=== PATIENT | male | born 1950 | race Caucasian/White ===

== ENCOUNTER 2022-07-24 19:17 | Inpatient (IN) | payer OTHER ==
--- OUTSIDE RECORDS SUMMARY | 2022-07-24 19:53 | XMS REPORT | Continuity of Care Document ---
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 ENCOUNTER Diagnosis Active 2015-09-21 Memoria FOR ENCOUNTER 08:30:00 l SCREENING FOR Rol[place] FOR SCREENING MALIGNANT FOR NE MALIGNANT NE Active [facility] LABS LABS Diagnosis Active 2015-09-28 Mem oria Active 07:49:00 l [facility] [place] Acute Acute Problem Resolve 2012-032019-01-18 2019-01-18 Memoria exacerbati exacerbati d 2-18 23:23:24 23:23:24 l on of on of 00:00: [place] 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 Annika Wise [facility], [facility] Allergies, Adverse Reactions, Alerts Allergy Allergy Status Severity Reaction(s) Onset Inactive Treating Comm ents Source Name Type Date Date Clinician NO KNOWN Drug Active Univers ALLERGIE Class ity of S [facility] [place] iodine iodine Active Memoria l [place] acetamin acetamin Active Memori a ophen-co ophen-co l deine deine [place] codeine< codeine< Active Memori a sup>1</s sup>1</s l up> up> [place] Social History Social Habit Start Date Stop Date Quantity Comments Source History [facility] University o f Alcohol Frequency [place] [facility] History [facility] University o f Alcohol Std [place] [facility] Drinks Branch History [facility] o f Alcohol Binge [place] [facility] History of Current smoker University of tobacco use [facility] [place] Exposure to 2022-04-06 2022-04-16 Not sure University of SARS-CoV-2 00:00:00 09:57:00 [place] [facility] (event) Branch History SDOH 2020-04-04 2020-04-04 0 University o f Physical Activity 00:00:00 00:00:00 [place] [facility] DPW Branch History SDOH 2020-04-04 2020-04-04 99 University o f Physical Activity 00:00:00 00:00:00 [place] [facility] MPS Branch History SDOH 2020-03-01 2020-03-01 5 University o f Financial 00:00:00 00:00:00 [place] [facility] History SDOH Food 2020-03-01 2020-03-01 1 Univers ity of Worry 00:00:00 00:00:00 [place] [facility] History SDOH Food 2020-03-01 2020-03-01 1 Univers ity of Scarcity 00:00:00 00:00:00 [place] [facility] History SDOH 2020-03-01 2020-03-01 2 University o f Transport Med 00:00:00 00:00:00 [place] [facility] al Branch History SDOH 2020-03-01 2020-03-01 2 University o f Transport Non-Med 00:00:00 00:00:00 [facility] edical Branch Alcohol intake 2019-03-05 2019-03-05 0 /d University of 00:00:00 00:00:00 [facility] [place] Tobacco use and 2016-02-04 2016-02-04 Smokeless tobacco Un iversity of exposure 00:00:00 00:00:00 non-user [facility] [place] Tobacco Comment 2016-02-04 2016-02-04 smoked 1 ppd age Uni versity of 00:00:00 00:00:00 [age], quit age [place] [facility] ical 64 Branch Alcohol Comment 2016-02-04 2016-02-04 occasional Universit y of 00:00:00 00:00:00 [facility] [place] Social History 2015-09-21 2015[facility]09[facility] 13[facility]53 13:55:53 [birth year] Universit y of 00:00:00 00:00:00 [facility] [place] Smoking Status Start Date Stop Date Source Ex-smoker 2016-02-04 00:00:00 2016-02-04 00:00:00 [facility] Medical Branch Medications Ordered Filled Start Stop Current Ordering Indication Dosage Frequency Signature Comments Components Source Medication Medication Date Date Medication? Clinician (SIG) Name Name OPAL 10 2022-0 Yes [id number] TAKE ONE Univers mg tablet 4-19 TABLET BY ity o f 00:00: MOUTH [place] THREE Medical TIMES A Branch DAY NEEDED FOR PAIN ERGOCALCIFE 3-0 Yes [id number] TAKE 1 Univers ROL, 4-03 CAPSULE BY ity of VITAMIN D2, 00:00: MOUTH ONCE [place] 1,250 mcg 00 A WEEK Medical (50,000 Branch unit) capsule ERGOCALCIFE 3-0 Yes [id number] TAKE 1 Univers ROL, 4-03 CAPSULE BY ity of VITAMIN D2, 00:00: MOUTH ONCE [place] 1,250 mcg 00 A WEEK Medical (50,000 Branch unit) capsule predniSONE 2022-0 Yes [id number] 5mg Take 1 Univers 5 mg tablet 2-09 tablet by ity of 00:00: mouth in [place] 00 the Medical morning. Branch predniSONE 3-0 Yes [id number] 5mg Take 1 Univers 5 mg tablet 2-09 tablet by ity of 00:00: mouth in [place] 00 the Medical morning. Branch predniSONE 3-0 Yes [id number] 5mg Take 1 Univers 5 mg tablet 2-09 tablet by ity of 00:00: mouth in [place] 00 the Medical morning. Branch predniSONE 3-0 Yes [id number] 5mg Take 1 Univers 5 mg tablet 2-09 tablet by ity of 00:00: mouth in [place] 00 the Medical morning. Branch predniSONE 3-0 Yes [id number] 5mg Take 1 Univers 5 mg tablet 2-09 tablet by ity of 00:00: mouth in [place] 00 the Medical morning. Branch predniSONE 3-0 Yes [id number] 5mg Take 1 Univers 5 mg tablet 2-09 tablet by ity of 00:00: mouth in [place] 00 the Medical morning. Branch predniSONE 2023-0 Yes [id number] 5mg Take 1 Univers 5 mg tablet 2-09 tablet by ity of 00:00: mouth in [place] 00 the Medical morning. Branch predniSONE 2023-0 Yes [id number] 5mg Take 1 Univers 5 mg tablet 2-09 tablet by ity of 00:00: mouth in [place] 00 the Medical morning. Branch predniSONE 3-0 Yes [id number] 5mg Take 1 Univers 5 mg tablet 2-09 tablet by ity of 00:00: mouth in [place] 00 the Medical morning. Branch predniSONE 3-0 Yes [id number] 5mg Take 1 Univers 5 mg tablet 2-09 tablet by ity of 00:00: mouth in [place] 00 the Medical morning. Branch predniSONE 3-0 Yes [id number] 5mg Take 1 Univers 5 mg tablet 2-09 tablet by ity of 00:00: mouth in [place] 00 the Medical morning. Branch predniSONE 2023-0 Yes [id number] 5mg Take 1 Univers 5 mg tablet 2-09 tablet by ity of 00:00: mouth in [place] 00 the Medical morning. Branch predniSONE 2023-0 Yes [id number] 5mg Take 1 Univers 5 mg tablet 2-09 tablet by ity of 00:00: mouth in [place] 00 the Medical morning. Branch benzonatate 3-0 Yes [id number] 100mg Take 1 Univers (TESSALON 1-09 capsule by ity of PERLES) 100 00:00: mouth [place] mg capsule 00 every 8 Medica l (eight) Branch hours as needed for Cough. benzonatate 3-0 Yes [id number] 100mg Take 1 Univers (TESSALON 1-09 capsule by ity of PERLES) 100 00:00: mouth [place] mg capsule 00 every 8 Medica l (eight) Branch hours as needed for Cough. benzonatate 3-0 Yes [id number] 100mg Take 1 Univers (TESSALON 1-09 capsule by ity of PERLES) 100 00:00: mouth [place] mg capsule 00 every 8 Medica l (eight) Branch hours as needed for Cough. benzonatate 3-0 Yes [id number] 100mg Take 1 Univers (TESSALON 1-09 capsule by ity of PERLES) 100 00:00: mouth [place] mg capsule 00 every 8 Medica l (eight) Branch hours as needed for Cough. benzonatate 2023-0 Yes [id number] 100mg Take 1 Univers (TESSALON 1-09 capsule by ity of PERLES) 100 00:00: mouth [place] mg capsule 00 every 8 Medica l (eight) Branch hours as needed for Cough. benzonatate 3-0 Yes [id number] 100mg Take 1 Univers (TESSALON 1-09 capsule by ity of PERLES) 100 00:00: mouth [place] mg capsule 00 every 8 Medica l (eight) Branch hours as needed for Cough. benzonatate 2022-0 Yes [id number] 100mg Take 1 Univers (TESSALON 1-09 capsule by ity of PERLES) 100 00:00: mouth [place] mg capsule 00 every 8 Medica l (eight) Branch hours as needed for Cough. benzonatate 2022-0 Yes [id number] 100mg Take 1 Univers (TESSALON 1-09 capsule by ity of PERLES) 100 00:00: mouth [place] mg capsule 00 every 8 Medica l (eight) Branch hours as needed for Cough. benzonatate 2022-0 Yes [id number] 100mg Take 1 Univers (TESSALON 1-09 capsule by ity of PERLES) 100 00:00: mouth [place] mg capsule 00 every 8 Medica l (eight) Branch hours as needed for Cough. benzonatate 2022-0 Yes [id number] 100mg Take 1 Univers (TESSALON 1-09 capsule by ity of PERLES) 100 00:00: mouth [place] mg capsule 00 every 8 Medica l (eight) Branch hours as needed for Cough. benzonatate 2022-0 Yes [id number] 100mg Take 1 Univers (TESSALON 1-09 capsule by ity of PERLES) 100 00:00: mouth [place] mg capsule 00 every 8 Medica l (eight) Branch hours as needed for Cough. benzonatate 2022-0 Yes [id number] 100mg Take 1 Univers (TESSALON 1-09 capsule by ity of PERLES) 100 00:00: mouth [place] mg capsule 00 every 8 Medica l (eight) Branch hours as needed for Cough. benzonatate 2022-0 Yes [id number] 100mg Take 1 Univers (TESSALON 1-09 capsule by ity of PERLES) 100 00:00: mouth [place] mg capsule 00 every 8 Medica l (eight) Branch hours as needed for Cough. benzonatate 2022-0 Yes [id number] 100mg Take 1 Univers (TESSALON 1-09 capsule by ity of PERLES) 100 00:00: mouth [place] mg capsule 00 every 8 Medica l (eight) Branch hours as needed for Cough. benzonatate 2022-0 Yes [id number] 100mg Take 1 Univers (TESSALON 1-09 capsule by ity of PERLES) 100 00:00: mouth [place] mg capsule 00 every 8 Medica l (eight) Branch hours as needed for Cough. benzonatate 2022-0 Yes [id number] 100mg Take 1 Univers (TESSALON 1-09 capsule by ity of PERLES) 100 00:00: mouth [place] mg capsule 00 every 8 Medica l (eight) Branch hours as needed for Cough. benzonatate 2022-0 Yes [id number] 100mg Take 1 Univers (TESSALON 1-09 capsule by ity of PERLES) 100 00:00: mouth [place] mg capsule 00 every 8 Medica l (eight) Branch hours as needed for Cough. benzonatate 2022-0 Yes [id number] 100mg Take 1 Univers (TESSALON 1-09 capsule by ity of PERLES) 100 00:00: mouth [place] mg capsule 00 every 8 Medica l (eight) Branch hours as needed for Cough. benzonatate 2022-0 Yes [id number] 100mg Take 1 Univers (TESSALON 1-09 capsule by ity of PERLES) 100 00:00: mouth [place] mg capsule 00 every 8 Medica l (eight) Branch hours as needed for Cough. benzonatate 2022-0 Yes [id number] 100mg Take 1 Univers (TESSALON 1-09 capsule by ity of PERLES) 100 00:00: mouth [place] mg capsule 00 every 8 Medica l (eight) Branch hours as needed for Cough. benzonatate 2022-0 Yes [id number] 100mg Take 1 Univers (TESSALON 1-09 capsule by ity of PERLES) 100 00:00: mouth [place] mg capsule 00 every 8 Medica l (eight) Branch hours as needed for Cough. benzonatate 2022-0 Yes [id number] 100mg Take 1 Univers (TESSALON 1-09 capsule by ity of PERLES) 100 00:00: mouth [place] mg capsule 00 every 8 Medica l (eight) Branch hours as needed for Cough. benzonatate 2022-0 Yes [id number] 100mg Take 1 Univers (TESSALON 1-09 capsule by ity of PERLES) 100 00:00: mouth [place] mg capsule 00 every 8 Medica l (eight) Branch hours as needed for Cough. benzonatate 2022-0 Yes [id number] 100mg Take 1 Univers (TESSALON 1-09 capsule by ity of PERLDress Code) 100 00:00: mouth [place] mg capsule 00 every 8 Medica l (eight) Branch hours as needed for Cough. benzonatate Yes [id number] 100mg Take 1 Univers (TESSALON 1-09 capsule by ity of PERLDress Code) 100 00:00: mouth [place] mg capsule 00 every 8 Medica l (eight) Branch hours as needed for Cough. benzonatate Yes [id number] 100mg Take 1 Univers (TESSALON 1-09 capsule by ity of PERLDress Code) 100 00:00: mouth [place] mg capsule 00 every 8 Medica l (eight) Branch hours as needed for Cough. cloNIDine 2022- No [id number] .2mg Un renetta (CATAPRES) 03-08 ity of tablet 0.2 22:00: 21:21 [place] mg 00 :00 Medical Branch cloNIDine 2022- No [id number] .2mg 0.2 mg, Univers (CATAPRES) 03-08 Oral, ity of tablet 0.2 22:00: 21:21 ONCE, 1 [place] as mg 00 :00 dose, On Medical [facility] 03/08/22 Branch at 1600, Routine cloNIDine 2022- No [id number] .2mg Un renetta (CATAPRES) 03-08 ity of tablet 0.2 22:00: 21:21 [place] mg 00 :00 Medical Branch cloNIDine 2022- No [id number] .2mg 0.2 mg, Univers (CATAPRES) 03-08 Oral, ity of tablet 0.2 22:00: 21:21 ONCE, 1 [place] as mg 00 :00 dose, On Medical [facility] 03/08/22 Branch at 1600, Routine bumetanide 2022- No 1mg Take 1 mg U nivers 1 mg tablet 03-08 by mouth ity of 15:30: 00:00 in the [place] 31 :00 morning. Medical Indication Branch s: reports kidney Dr Rx, ~2 mths ago bumetanide 2022- No 1mg Take 1 mg U nivers 1 mg tablet 03-08 by mouth ity of 15:30: 00:00 in the [place] 31 :00 morning. Medical Indication Branch s: reports kidney Dr Rx, ~2 mths ago bumetanide 2022-2022- No 1mg Take 1 mg U nivers 1 mg tablet 03-08 by mouth ity of 15:30: 00:00 in the [place] 31 :00 morning. Medical Indication Branch s: reports kidney Dr Rx, ~2 mths ago bumetanide 2022-2022- No 1mg Take 1 mg U nivers 1 mg tablet 03-08 by mouth ity of 15:30: 00:00 in the [place] 31 :00 morning. Medical Indication Branch s: reports kidney Dr Rx, ~2 mths ago levothyroxi Yes [id number] 150ug Take 1 Univers ne 150 mcg 1-05 tablet by ity of tablet 00:00: mouth [place] 00 every Medical morning. Branch tamsulosin Yes [id number] .4mg Take 1 Univers 0.4 mg 24 03-08 9102 capsule by ity of hr capsule 00:00: mouth in [place] as 00 the Medical morning. Branch budesonide Yes [id number] .5mg Inhale 2 Univers 0.5 mg/2 mL 1-05 mL in the ity of nebulizer 00:00: morning [place] solution 00 and 2 mL Medical in the Branch evening. traZODone Yes [id number] 50mg Take 1 U nivers 50 mg 1-05 tablet by ity of tablet 00:00: mouth at [place] 00 bedtime. Medical Branch doxepin 25 Yes [id number] 25mg Take 1 Univers mg capsule 1-05 capsule by ity of 00:00: mouth at [place] 00 bedtime. Medical Branch glipiZIDE Yes [id number] 2.5mg Take 1 U nivers XL 2.5 mg 1-05 tablet by ity o f 24 hr 00:00: mouth in [place] tablet 00 the Medical morning Branch and 1 tablet in the evening. bumetanide Yes 1mg Take 1 Unive rs 1 mg tablet 1-05 tablet by ity of 00:00: mouth [place] 00 every Medical morning Branch and evening. Indication s: reports kidney Dr Rx, ~2 mths ago arformotero Yes [id number] 15ug Use 2 mL Univers L 15 mcg/2 1-05 as ity of mL 00:00: directed [place] nebulizer 00 in the Medical solution morning Branch and 2 mL in the evening. ipratropium Yes [id number] .5mg Inhale 2.5 Univers 0.02 % 1-05 mL every 4 ity of nebulizer 00:00: (four) [place] solution 00 hours as Medical needed for Branch Wheezing or Shortness of Breath. albuterol Yes [id number] 2{puff} Inhale 2 Univers 90 1-05 Puffs ity of mcg/actuati 00:00: every 6 [place] as on inhaler 00 (six) Medical hours as Branch needed for Wheezing or Shortness of Breath. albuterol Yes [id number] 2.5mg Inhale 3 Univers 2.5 mg /3 1-05 mL every 2 ity of mL (0.083 00:00: (two) [place] ) 00 hours as Medical nebulizer needed for Bran ch solution Shortness of Breath or Wheezing. cloNIDine Yes [id number] .2mg Take 1 U nivers 0.2 mg 1-05 tablet by ity of tablet 00:00: mouth 3 [place] 00 (three) Medical times Branch daily as needed (Uncontrol led Hypertensi on). Take 1 Tab if BP > 150/90 NIFEdipine Yes [id number] 30mg Take 1 U nivers ER 30 mg 1-05 tablet by ity of tablet 00:00: mouth in [place] 00 the Medical morning. Branch levothyroxi Yes [id number] 150ug Take 1 Univers ne 150 mcg 1-05 tablet by ity of tablet 00:00: mouth [place] 00 every Medical morning. Branch tamsulosin Yes [id number] .4mg Take 1 Univers 0.4 mg 24 1-05 9102 capsule by ity of hr capsule 00:00: mouth in [place] as 00 the Medical morning. Branch budesonide Yes [id number] .5mg Inhale 2 Univers 0.5 mg/2 mL 1-05 mL in the ity of nebulizer 00:00: morning [place] solution 00 and 2 mL Medical in the Branch evening. traZODone Yes [id number] 50mg Take 1 U nivers 50 mg 1-05 tablet by ity of tablet 00:00: mouth at [place] 00 bedtime. Medical Branch doxepin 25 Yes [id number] 25mg Take 1 Univers mg capsule 1-05 capsule by ity of 00:00: mouth at [place] 00 bedtime. Medical Branch glipiZIDE Yes [id number] 2.5mg Take 1 U nivers XL 2.5 mg 1-05 tablet by ity o f 24 hr 00:00: mouth in [place] tablet 00 the Medical morning Branch and 1 tablet in the evening. bumetanide Yes 1mg Take 1 Unive rs 1 mg tablet 1-05 tablet by ity of 00:00: mouth [place] 00 every Medical morning Branch and evening. Indication s: reports kidney Dr Rx, ~2 mths ago arformotero Yes [id number] 15ug Use 2 mL Univers L 15 mcg/2 1-05 as ity of mL 00:00: directed [place] nebulizer 00 in the Medical solution morning Branch and 2 mL in the evening. ipratropium Yes [id number] .5mg Inhale 2.5 Univers 0.02 % 1-05 mL every 4 ity of nebulizer 00:00: (four) [place] solution 00 hours as Medical needed for Branch Wheezing or Shortness of Breath. albuterol Yes [id number] 2{puff} Inhale 2 Univers 90 1-05 Puffs ity of mcg/actuati 00:00: every 6 [place] as on inhaler 00 (six) Medical hours as Branch needed for Wheezing or Shortness of Breath. albuterol Yes [id number] 2.5mg Inhale 3 Univers 2.5 mg /3 1-05 mL every 2 ity of mL (0.083 00:00: (two) [place] %) 00 hours as Medical nebulizer needed for Bran ch solution Shortness of Breath or Wheezing. cloNIDine Yes [id number] .2mg Take 1 U nivers 0.2 mg 1-05 tablet by ity of tablet 00:00: mouth 3 [place] 00 (three) Medical times Branch daily as needed (Uncontrol led Hypertensi on). Take 1 Tab if BP > 150/90 NIFEdipine 2022-0 Yes [id number] 30mg Take 1 U nivers ER 30 mg 1-05 tablet by ity of tablet 00:00: mouth in [place] 00 the Medical morning. Branch levothyroxi 2022-0 Yes [id number] 150ug Take 1 Univers ne 150 mcg 1-05 tablet by ity of tablet 00:00: mouth [place] 00 every Medical morning. Branch tamsulosin 2022-0 Yes [id number] .4mg Take 1 Univers 0.4 mg 24 1-05 9102 capsule by ity of hr capsule 00:00: mouth in [place] as 00 the Medical morning. Branch budesonide 2022-0 Yes [id number] .5mg Inhale 2 Univers 0.5 mg/2 mL 1-05 mL in the ity of nebulizer 00:00: morning [place] solution 00 and 2 mL Medical in the Branch evening. traZODone 2022-0 Yes [id number] 50mg Take 1 U nivers 50 mg 1-05 tablet by ity of tablet 00:00: mouth at [place] 00 bedtime. Medical Branch doxepin 25 2022-0 Yes [id number] 25mg Take 1 Univers mg capsule 1-05 capsule by ity of 00:00: mouth at [place] 00 bedtime. Medical Branch glipiZIDE 2022-0 Yes [id number] 2.5mg Take 1 U nivers XL 2.5 mg 1-05 tablet by ity o f 24 hr 00:00: mouth in [place] tablet 00 the Medical morning Branch and 1 tablet in the evening. bumetanide 0 Yes 1mg Take 1 Unive rs 1 mg tablet 1-05 tablet by ity of 00:00: mouth [place] 00 every Medical morning Branch and evening. Indication s: reports kidney Dr Rx, ~2 mths ago arformotero 2022-0 Yes [id number] 15ug Use 2 mL Univers L 15 mcg/2 1-05 as ity of mL 00:00: directed [place] nebulizer 00 in the Medical solution morning Branch and 2 mL in the evening. ipratropium 2022-0 Yes [id number] .5mg Inhale 2.5 Univers 0.02 % 1-05 mL every 4 ity of nebulizer 00:00: (four) [place] solution 00 hours as Medical needed for Branch Wheezing or Shortness of Breath. albuterol Yes [id number] 2{puff} Inhale 2 Univers 90 1-05 Puffs ity of mcg/actuati 00:00: every 6 [place] as on inhaler 00 (six) Medical hours as Branch needed for Wheezing or Shortness of Breath. albuterol 0 Yes [id number] 2.5mg Inhale 3 Univers 2.5 mg /3 1-05 mL every 2 ity of mL (0.083 00:00: (two) [place] %) 00 hours as Medical nebulizer needed for Bran ch solution Shortness of Breath or Wheezing. cloNIDine Yes [id number] .2mg Take 1 U nivers 0.2 mg 1-05 tablet by ity of tablet 00:00: mouth 3 [place] 00 (three) Medical times Branch daily as needed (Uncontrol led Hypertensi on). Take 1 Tab if BP > 150/90 NIFEdipine 2022-0 Yes [id number] 30mg Take 1 U nivers ER 30 mg 1-05 tablet by ity of tablet 00:00: mouth in [place] 00 the Medical morning. Branch levothyroxi Yes [id number] 150ug Take 1 Univers ne 150 mcg 1-05 tablet by ity of tablet 00:00: mouth [place] 00 every Medical morning. Branch tamsulosin Yes [id number] .4mg Take 1 Univers 0.4 mg 24 1-05 9102 capsule by ity of hr capsule 00:00: mouth in [place] as 00 the Medical morning. Branch budesonide Yes [id number] .5mg Inhale 2 Univers 0.5 mg/2 mL 1-05 mL in the ity of nebulizer 00:00: morning [place] solution 00 and 2 mL Medical in the Branch evening. traZODone 0 Yes [id number] 50mg Take 1 U nivers 50 mg 1-05 tablet by ity of tablet 00:00: mouth at [place] 00 bedtime. Medical Branch doxepin 25 0 Yes [id number] 25mg Take 1 Univers mg capsule 1-05 capsule by ity of 00:00: mouth at [place] 00 bedtime. Medical Branch glipiZIDE 0 Yes [id number] 2.5mg Take 1 U nivers XL 2.5 mg 1-05 tablet by ity o f 24 hr 00:00: mouth in [place] tablet 00 the Medical morning Branch and 1 tablet in the evening. bumetanide Yes 1mg Take 1 Unive rs 1 mg tablet 1-05 tablet by ity of 00:00: mouth [place] 00 every Medical morning Branch and evening. Indication s: reports kidney Dr Rx, ~2 mths ago arformotero 2022- Yes [id number] 15ug Use 2 mL Univers L 15 mcg/2 1-05 as ity of mL 00:00: directed [place] nebulizer 00 in the Medical solution morning Branch and 2 mL in the evening. ipratropium Yes [id number] .5mg Inhale 2.5 Univers 0.02 % 1-05 mL every 4 ity of nebulizer 00:00: (four) [place] solution 00 hours as Medical needed for Branch Wheezing or Shortness of Breath. albuterol Yes [id number] 2{puff} Inhale 2 Univers 90 1-05 Puffs ity of mcg/actuati 00:00: every 6 [place] as on inhaler 00 (six) Medical hours as Branch needed for Wheezing or Shortness of Breath. albuterol Yes [id number] 2.5mg Inhale 3 Univers 2.5 mg /3 1-05 mL every 2 ity of mL (0.083 00:00: (two) [place] %) 00 hours as Medical nebulizer needed for Bran ch solution Shortness of Breath or Wheezing. cloNIDine Yes [id number] .2mg Take 1 U nivers 0.2 mg 1-05 tablet by ity of tablet 00:00: mouth 3 [place] 00 (three) Medical times Branch daily as needed (Uncontrol led Hypertensi on). Take 1 Tab if BP > 150/90 NIFEdipine 2022-0 Yes [id number] 30mg Take 1 U nivers ER 30 mg 1-05 tablet by ity of tablet 00:00: mouth in [place] 00 the Medical morning. Branch levothyroxi 2022-0 Yes [id number] 150ug Take 1 Univers ne 150 mcg 1-05 tablet by ity of tablet 00:00: mouth [place] 00 every Medical morning. Branch tamsulosin 0 Yes [id number] .4mg Take 1 Univers 0.4 mg 24 1-05 9102 capsule by ity of hr capsule 00:00: mouth in [place] as 00 the Medical morning. Branch budesonide 0 Yes [id number] .5mg Inhale 2 Univers 0.5 mg/2 mL 1-05 mL in the ity of nebulizer 00:00: morning [place] solution 00 and 2 mL Medical in the Branch evening. traZODone 2022-0 Yes [id number] 50mg Take 1 U nivers 50 mg 1-05 tablet by ity of tablet 00:00: mouth at [place] 00 bedtime. Medical Branch doxepin 25 2022-0 Yes [id number] 25mg Take 1 Univers mg capsule 1-05 capsule by ity of 00:00: mouth at [place] 00 bedtime. Medical Branch glipiZIDE 0 Yes [id number] 2.5mg Take 1 U nivers XL 2.5 mg 1-05 tablet by ity o f 24 hr 00:00: mouth in [place] tablet 00 the Medical morning Branch and 1 tablet in the evening. bumetanide Yes 1mg Take 1 Unive rs 1 mg tablet 1-05 tablet by ity of 00:00: mouth [place] 00 every Medical morning Branch and evening. Indication s: reports kidney Dr Rx, ~2 mths ago arformotero 2022-0 Yes [id number] 15ug Use 2 mL Univers L 15 mcg/2 1-05 as ity of mL 00:00: directed [place] nebulizer 00 in the Medical solution morning Branch and 2 mL in the evening. ipratropium 0 Yes [id number] .5mg Inhale 2.5 Univers 0.02 % 1-05 mL every 4 ity of nebulizer 00:00: (four) [place] solution 00 hours as Medical needed for Branch Wheezing or Shortness of Breath. albuterol 2022-0 Yes [id number] 2{puff} Inhale 2 Univers 90 1-05 Puffs ity of mcg/actuati 00:00: every 6 [place] as on inhaler 00 (six) Medical hours as Branch needed for Wheezing or Shortness of Breath. albuterol 2022-0 Yes [id number] 2.5mg Inhale 3 [facility] 2.5 mg /3 1-05 mL every 2 ity of mL (0.083 00:00: (two) [place] %) 00 hours as Medical nebulizer needed for Bran ch solution Shortness of Breath or Wheezing. cloNIDine Yes [id number] .2mg Take 1 U nivers 0.2 mg 1-05 tablet by ity of tablet 00:00: mouth 3 [place] 00 (three) Medical times Branch daily as needed (Uncontrol led Hypertensi on). Take 1 Tab if BP > 150/90 NIFEdipine Yes [id number] 30mg Take 1 U nivers ER 30 mg 1-05 tablet by ity of tablet 00:00: mouth in [place] 00 the Medical morning. Branch levothyroxi Yes [id number] 150ug Take 1 [facility] ne 150 mcg 1-05 tablet by ity of tablet 00:00: mouth [place] 00 every Medical morning. Branch tamsulosin Yes [id number] .4mg Take 1 [facility] 0.4 mg 24 1-05 9102 capsule by ity of hr capsule 00:00: mouth in [place] as 00 the Medical morning. Branch budesonide Yes [id number] .5mg Inhale 2 [facility] 0.5 mg/2 mL 1-05 mL in the ity of nebulizer 00:00: morning [place] solution 00 and 2 mL Medical in the Branch evening. traZODone Yes [id number] 50mg Take 1 U nivers 50 mg 1-05 tablet by ity of tablet 00:00: mouth at [place] 00 bedtime. Medical Branch doxepin 25 Yes [id number] 25mg Take 1 [facility] mg capsule 1-05 capsule by ity of 00:00: mouth at [place] 00 bedtime. Medical Branch glipiZIDE Yes [id number] 2.5mg Take 1 [facility] nivers XL 2.5 mg 1-05 tablet by ity o f 24 hr 00:00: mouth in [place] tablet 00 the Medical morning Branch and 1 tablet in the evening. bumetanide Yes 1mg Take 1 [facility] rs 1 mg tablet 1-05 tablet by ity of 00:00: mouth [place] 00 every Medical morning Branch and evening. Indication s: reports kidney Dr Rx, ~2 mths ago arformotero Yes [id number] 15ug Use 2 mL [facility] L 15 mcg/2 1-05 as ity of mL 00:00: directed [place] nebulizer 00 in the Medical solution morning Branch and 2 mL in the evening. ipratropium Yes [id number] .5mg Inhale 2.5 [facility] 0.02 % 1-05 mL every 4 ity of nebulizer 00:00: (four) [place] solution 00 hours as Medical needed for Branch Wheezing or Shortness of Breath. albuterol Yes [id number] 2{puff} Inhale 2 [facility] 90 1-05 Puffs ity of mcg/actuati 00:00: every 6 [place] as on inhaler 00 (six) Medical hours as Branch needed for Wheezing or Shortness of Breath. albuterol Yes [id number] 2.5mg Inhale 3 [facility] 2.5 mg /3 1-05 mL every 2 ity of mL (0.083 00:00: (two) [place] %) 00 hours as Medical nebulizer needed for Bran ch solution Shortness of Breath or Wheezing. cloNIDine Yes [id number] .2mg Take 1 [facility] nivers 0.2 mg 1-05 tablet by ity of tablet 00:00: mouth 3 [place] 00 (three) Medical times Branch daily as needed (Uncontrol led Hypertensi on). Take 1 Tab if BP > 150/90 NIFEdipine Yes [id number] 30mg Take 1 U nivers ER 30 mg 1-05 tablet by ity of tablet 00:00: mouth in [place] 00 the Medical morning. Branch levothyroxi Yes [id number] 150ug Take 1 [facility] ne 150 mcg 1-05 tablet by ity of tablet 00:00: mouth [place] 00 every Medical morning. Branch tamsulosin Yes [id number] .4mg Take 1 [facility] 0.4 mg 24 1-05 9102 capsule by ity of hr capsule 00:00: mouth in [place] as 00 the Medical morning. Branch budesonide 0 Yes [id number] .5mg Inhale 2 [facility] 0.5 mg/2 mL 1-05 mL in the ity of nebulizer 00:00: morning [place] solution 00 and 2 mL Medical in the Branch evening. traZODone 0 Yes [id number] 50mg Take 1 [facility] nivers 50 mg 1-05 tablet by ity of tablet 00:00: mouth at [place] 00 bedtime. Medical Branch doxepin 25 Yes [id number] 25mg Take 1 [facility] mg capsule 1-05 capsule by ity of 00:00: mouth at [place] 00 bedtime. Medical Branch glipiZIDE Yes [id number] 2.5mg Take 1 [facility] nivers XL 2.5 mg 1-05 tablet by ity o f 24 hr 00:00: mouth in [place] tablet 00 the Medical morning Branch and 1 tablet in the evening. bumetanide Yes 1mg Take 1 [facility] rs 1 mg tablet 1-05 tablet by ity of 00:00: mouth [place] 00 every Medical morning Branch and evening. Indication s: reports kidney Dr Rx, ~2 mths ago arformotero Yes [id number] 15ug Use 2 mL [facility] L 15 mcg/2 1-05 as ity of mL 00:00: directed [place] nebulizer 00 in the Medical solution morning Branch and 2 mL in the evening. ipratropium Yes [id number] .5mg Inhale 2.5 [facility] 0.02 % 1-05 mL every 4 ity of nebulizer 00:00: (four) [place] solution 00 hours as Medical needed for Branch Wheezing or Shortness of Breath. albuterol Yes [id number] 2{puff} Inhale 2 [facility] 90 1-05 Puffs ity of mcg/actuati 00:00: every 6 [place] as on inhaler 00 (six) Medical hours as Branch needed for Wheezing or Shortness of Breath. albuterol Yes [id number] 2.5mg Inhale 3 [facility] 2.5 mg /3 1-05 mL every 2 ity of mL (0.083 00:00: (two) [place] %) 00 hours as Medical nebulizer needed for Bran ch solution Shortness of Breath or Wheezing. cloNIDine Yes [id number] .2mg Take 1 [facility] nivers 0.2 mg 1-05 tablet by ity of tablet 00:00: mouth 3 [place] 00 (three) Medical times Branch daily as needed (Uncontrol led Hypertensi on). Take 1 Tab if BP > 150/90 NIFEdipine Yes [id number] 30mg Take 1 [facility] nivers ER 30 mg 1-05 tablet by ity of tablet 00:00: mouth in [place] 00 the Medical morning. Branch levothyroxi Yes [id number] 150ug Take 1 [facility] ne 150 mcg 1-05 tablet by ity of tablet 00:00: mouth [place] 00 every Medical morning. Branch tamsulosin Yes [id number] .4mg Take 1 [facility] 0.4 mg 24 1-05 9102 capsule by ity of hr capsule 00:00: mouth in [place] as 00 the Medical morning. Branch budesonide Yes [id number] .5mg Inhale 2 [facility] 0.5 mg/2 mL 1-05 mL in the ity of nebulizer 00:00: morning [place] solution 00 and 2 mL Medical in the Branch evening. traZODone Yes [id number] 50mg Take 1 [facility] nivers 50 mg 1-05 tablet by ity of tablet 00:00: mouth at [place] 00 bedtime. Medical Branch doxepin 25 Yes [id number] 25mg Take 1 [facility] mg capsule 1-05 capsule by ity of 00:00: mouth at [place] 00 bedtime. Medical Branch glipiZIDE Yes [id number] 2.5mg Take 1 [facility] nivers XL 2.5 mg 1-05 tablet by ity o f 24 hr 00:00: mouth in [place] tablet 00 the Medical morning Branch and 1 tablet in the evening. bumetanide Yes 1mg Take 1 [facility] rs 1 mg tablet 1-05 tablet by ity of 00:00: mouth [place] 00 every Medical morning Branch and evening. Indication s: reports kidney Dr Rx, ~2 mths ago arformotero 0 Yes [id number] 15ug Use 2 mL [facility] L 15 mcg/2 1-05 as ity of mL 00:00: directed [place] nebulizer 00 in the Medical solution morning Branch and 2 mL in the evening. ipratropium 0 Yes [id number] .5mg Inhale 2.5 [facility] 0.02 % 1-05 mL every 4 ity of nebulizer 00:00: (four) [place] solution 00 hours as Medical needed for Branch Wheezing or Shortness of Breath. albuterol 0 Yes [id number] 2{puff} Inhale 2 [facility] 90 1-05 Puffs ity of mcg/actuati 00:00: every 6 [place] as on inhaler 00 (six) Medical hours as Branch needed for Wheezing or Shortness of Breath. albuterol Yes [id number] 2.5mg Inhale 3 [facility] 2.5 mg /3 1-05 mL every 2 ity of mL (0.083 00:00: (two) [place] %) 00 hours as Medical nebulizer needed for Bran ch solution Shortness of Breath or Wheezing. cloNIDine Yes [id number] .2mg Take 1 [facility] nivers 0.2 mg 1-05 tablet by ity of tablet 00:00: mouth 3 [place] 00 (three) Medical times Branch daily as needed (Uncontrol led Hypertensi on). Take 1 Tab if BP > 150/90 NIFEdipine 0 Yes [id number] 30mg Take 1 U nivers ER 30 mg 1-05 tablet by ity of tablet 00:00: mouth in [place] 00 the Medical morning. Branch levothyroxi Yes [id number] 150ug Take 1 [facility] ne 150 mcg 1-05 tablet by ity of tablet 00:00: mouth [place] 00 every Medical morning. Branch tamsulosin Yes [id number] .4mg Take 1 [facility] 0.4 mg 24 1-05 9102 capsule by ity of hr capsule 00:00: mouth in [place] as 00 the Medical morning. Branch budesonide Yes [id number] .5mg Inhale 2 [facility] 0.5 mg/2 mL 1-05 mL in the ity of nebulizer 00:00: morning [place] solution 00 and 2 mL Medical in the Branch evening. traZODone Yes [id number] 50mg Take 1 [facility] nivers 50 mg 1-05 tablet by ity of tablet 00:00: mouth at [place] 00 bedtime. Medical Branch doxepin 25 0 Yes [id number] 25mg Take 1 [facility] mg capsule 1-05 capsule by ity of 00:00: mouth at [place] 00 bedtime. Medical Branch glipiZIDE 0 Yes [id number] 2.5mg Take 1 [facility] nivers XL 2.5 mg 1-05 tablet by ity o f 24 hr 00:00: mouth in [place] tablet 00 the Medical morning Branch and 1 tablet in the evening. bumetanide Yes 1mg Take 1 [facility] rs 1 mg tablet 1-05 tablet by ity of 00:00: mouth [place] 00 every Medical morning Branch and evening. Indication s: reports kidney Dr Rx, ~2 mths ago arformotero Yes [id number] 15ug Use 2 mL [facility] L 15 mcg/2 1-05 as ity of mL 00:00: directed [place] nebulizer 00 in the Medical solution morning Branch and 2 mL in the evening. ipratropium Yes [id number] .5mg Inhale 2.5 [facility] 0.02 % 1-05 mL every 4 ity of nebulizer 00:00: (four) [place] solution 00 hours as Medical needed for Branch Wheezing or Shortness of Breath. albuterol Yes [id number] 2{puff} Inhale 2 [facility] 90 1-05 Puffs ity of mcg/actuati 00:00: every 6 [place] as on inhaler 00 (six) Medical hours as Branch needed for Wheezing or Shortness of Breath. albuterol Yes [id number] 2.5mg Inhale 3 [facility] 2.5 mg /3 1-05 mL every 2 ity of mL (0.083 00:00: (two) [place] %) 00 hours as Medical nebulizer needed for Bran ch solution Shortness of Breath or Wheezing. cloNIDine Yes [id number] .2mg Take 1 [facility] nivers 0.2 mg 1-05 tablet by ity of tablet 00:00: mouth 3 [place] 00 (three) Medical times Branch daily as needed (Uncontrol led Hypertensi on). Take 1 Tab if BP > 150/90 NIFEdipine Yes [id number] 30mg Take 1 U nivers ER 30 mg 1-05 tablet by ity of tablet 00:00: mouth in [place] 00 the Medical morning. Branch levothyroxi Yes [id number] 150ug Take 1 [facility] ne 150 mcg 1-05 tablet by ity of tablet 00:00: mouth [place] 00 every Medical morning. Branch tamsulosin Yes [id number] .4mg Take 1 [facility] 0.4 mg 24 1-05 9102 capsule by ity of hr capsule 00:00: mouth in [place] as 00 the Medical morning. Branch budesonide Yes [id number] .5mg Inhale 2 [facility] 0.5 mg/2 mL 1-05 mL in the ity of nebulizer 00:00: morning [place] solution 00 and 2 mL Medical in the Branch evening. traZODone 0 Yes [id number] 50mg Take 1 [facility] nivers 50 mg 1-05 tablet by ity of tablet 00:00: mouth at [place] 00 bedtime. Medical Branch doxepin 25 Yes [id number] 25mg Take 1 [facility] mg capsule 1-05 capsule by ity of 00:00: mouth at [place] 00 bedtime. Medical Branch glipiZIDE Yes [id number] 2.5mg Take 1 [facility] nivers XL 2.5 mg 1-05 tablet by ity o f 24 hr 00:00: mouth in [place] tablet 00 the Medical morning Branch and 1 tablet in the evening. bumetanide Yes 1mg Take 1 [facility] rs 1 mg tablet 1-05 tablet by ity of 00:00: mouth [place] 00 every Medical morning Branch and evening. Indication s: reports kidney Dr Rx, ~2 mths ago arformotero Yes [id number] 15ug Use 2 mL [facility] L 15 mcg/2 1-05 as ity of mL 00:00: directed [place] nebulizer 00 in the Medical solution morning Branch and 2 mL in the evening. ipratropium Yes [id number] .5mg Inhale 2.5 [facility] 0.02 % 1-05 mL every 4 ity of nebulizer 00:00: (four) [place] solution 00 hours as Medical needed for Branch Wheezing or Shortness of Breath. albuterol Yes [id number] 2{puff} Inhale 2 [facility] 90 1-05 Puffs ity of mcg/actuati 00:00: every 6 [place] as on inhaler 00 (six) Medical hours as Branch needed for Wheezing or Shortness of Breath. albuterol Yes [id number] 2.5mg Inhale 3 [facility] 2.5 mg /3 1-05 mL every 2 ity of mL (0.083 00:00: (two) [place] %) 00 hours as Medical nebulizer needed for Bran ch solution Shortness of Breath or Wheezing. cloNIDine Yes [id number] .2mg Take 1 [facility] nivers 0.2 mg 1-05 tablet by ity of tablet 00:00: mouth 3 [place] 00 (three) Medical times Branch daily as needed (Uncontrol led Hypertensi on). Take 1 Tab if BP > 150/90 NIFEdipine 2022-0 Yes [id number] 30mg Take 1 U nivers ER 30 mg 1-05 tablet by ity of tablet 00:00: mouth in [place] 00 the Medical morning. Branch levothyroxi 0 Yes [id number] 150ug Take 1 [facility] ne 150 mcg 1-05 tablet by ity of tablet 00:00: mouth [place] 00 every Medical morning. Branch tamsulosin Yes [id number] .4mg Take 1 [facility] 0.4 mg 24 1-05 9102 capsule by ity of hr capsule 00:00: mouth in [place] as 00 the Medical morning. Branch budesonide Yes [id number] .5mg Inhale 2 [facility] 0.5 mg/2 mL 1-05 mL in the ity of nebulizer 00:00: morning [place] solution 00 and 2 mL Medical in the Branch evening. traZODone 0 Yes [id number] 50mg Take 1 [facility] nivers 50 mg 1-05 tablet by ity of tablet 00:00: mouth at [place] 00 bedtime. Medical Branch doxepin 25 0 Yes [id number] 25mg Take 1 [facility] mg capsule 1-05 capsule by ity of 00:00: mouth at [place] 00 bedtime. Medical Branch glipiZIDE 2022-0 Yes [id number] 2.5mg Take 1 [facility] nivers XL 2.5 mg 1-05 tablet by ity o f 24 hr 00:00: mouth in [place] tablet 00 the Medical morning Branch and 1 tablet in the evening. bumetanide 0 Yes 1mg Take 1 [facility] rs 1 mg tablet 1-05 tablet by ity of 00:00: mouth [place] 00 every Medical morning Branch and evening. Indication s: reports kidney Dr Rx, ~2 mths ago arformotero 2022-0 Yes [id number] 15ug Use 2 mL [facility] L 15 mcg/2 1-05 as ity of mL 00:00: directed [place] nebulizer 00 in the Medical solution morning Branch and 2 mL in the evening. ipratropium 2022-0 Yes [id number] .5mg Inhale 2.5 [facility] 0.02 % 1-05 mL every 4 ity of nebulizer 00:00: (four) [place] solution 00 hours as Medical needed for Branch Wheezing or Shortness of Breath. albuterol 0 Yes [id number] 2{puff} Inhale 2 [facility] 90 1-05 Puffs ity of mcg/actuati 00:00: every 6 [place] as on inhaler 00 (six) Medical hours as Branch needed for Wheezing or Shortness of Breath. albuterol 0 Yes [id number] 2.5mg Inhale 3 [facility] 2.5 mg /3 1-05 mL every 2 ity of mL (0.083 00:00: (two) [place] %) 00 hours as Medical nebulizer needed for Bran ch solution Shortness of Breath or Wheezing. cloNIDine Yes [id number] .2mg Take 1 [facility] nivers 0.2 mg 1-05 tablet by ity of tablet 00:00: mouth 3 [place] 00 (three) Medical times Branch daily as needed (Uncontrol led Hypertensi on). Take 1 Tab if BP > 150/90 NIFEdipine Yes [id number] 30mg Take 1 [facility] nivers ER 30 mg 1-05 tablet by ity of tablet 00:00: mouth in [place] 00 the Medical morning. Branch levothyroxi Yes [id number] 150ug Take 1 [facility] ne 150 mcg 1-05 tablet by ity of tablet 00:00: mouth [place] 00 every Medical morning. Branch tamsulosin Yes [id number] .4mg Take 1 [facility] 0.4 mg 24 1-05 9102 capsule by ity of hr capsule 00:00: mouth in [place] as 00 the Medical morning. Branch budesonide 0 Yes [id number] .5mg Inhale 2 [facility] 0.5 mg/2 mL 1-05 mL in the ity of nebulizer 00:00: morning [place] solution 00 and 2 mL Medical in the Branch evening. traZODone 0 Yes [id number] 50mg Take 1 [facility] nivers 50 mg 1-05 tablet by ity of tablet 00:00: mouth at [place] 00 bedtime. Medical Branch doxepin 25 2022-0 Yes [id number] 25mg Take 1 [facility] mg capsule 1-05 capsule by ity of 00:00: mouth at [place] 00 bedtime. Medical Branch glipiZIDE Yes [id number] 2.5mg Take 1 [facility] nivers XL 2.5 mg 1-05 tablet by ity o f 24 hr 00:00: mouth in [place] tablet 00 the Medical morning Branch and 1 tablet in the evening. bumetanide Yes 1mg Take 1 [facility] rs 1 mg tablet 1-05 tablet by ity of 00:00: mouth [place] 00 every Medical morning Branch and evening. Indication s: reports kidney Dr Rx, ~2 mths ago arformotero Yes [id number] 15ug Use 2 mL [facility] L 15 mcg/2 1-05 as ity of mL 00:00: directed [place] nebulizer 00 in the Medical solution morning Branch and 2 mL in the evening. ipratropium Yes [id number] .5mg Inhale 2.5 [facility] 0.02 % 1-05 mL every 4 ity of nebulizer 00:00: (four) [place] solution 00 hours as Medical needed for Branch Wheezing or Shortness of Breath. albuterol Yes [id number] 2{puff} Inhale 2 [facility] 90 1-05 Puffs ity of mcg/actuati 00:00: every 6 [place] as on inhaler 00 (six) Medical hours as Branch needed for Wheezing or Shortness of Breath. albuterol Yes [id number] 2.5mg Inhale 3 [facility] 2.5 mg /3 1-05 mL every 2 ity of mL (0.083 00:00: (two) [place] %) 00 hours as Medical nebulizer needed for Bran ch solution Shortness of Breath or Wheezing. cloNIDine Yes [id number] .2mg Take 1 [facility] nivers 0.2 mg 1-05 tablet by ity of tablet 00:00: mouth 3 [place] 00 (three) Medical times Branch daily as needed (Uncontrol led Hypertensi on). Take 1 Tab if BP > 150/90 NIFEdipine Yes [id number] 30mg Take 1 U nivers ER 30 mg 1-05 tablet by ity of tablet 00:00: mouth in [place] 00 the Medical morning. Branch levothyroxi Yes [id number] 150ug Take 1 [facility] ne 150 mcg 1-05 tablet by ity of tablet 00:00: mouth [place] 00 every Medical morning. Branch tamsulosin Yes [id number] .4mg Take 1 [facility] 0.4 mg 24 1-05 9102 capsule by ity of hr capsule 00:00: mouth in [place] as 00 the Medical morning. Branch budesonide Yes [id number] .5mg Inhale 2 [facility] 0.5 mg/2 mL 1-05 mL in the ity of nebulizer 00:00: morning [place] solution 00 and 2 mL Medical in the Branch evening. traZODone 0 Yes [id number] 50mg Take 1 [facility] nivers 50 mg 1-05 tablet by ity of tablet 00:00: mouth at [place] 00 bedtime. Medical Branch doxepin 25 Yes [id number] 25mg Take 1 [facility] mg capsule 1-05 capsule by ity of 00:00: mouth at [place] 00 bedtime. Medical Branch glipiZIDE Yes [id number] 2.5mg Take 1 [facility] nivers XL 2.5 mg 1-05 tablet by ity o f 24 hr 00:00: mouth in [place] tablet 00 the Medical morning Branch and 1 tablet in the evening. bumetanide Yes 1mg Take 1 [facility] rs 1 mg tablet 1-05 tablet by ity of 00:00: mouth [place] 00 every Medical morning Branch and evening. Indication s: reports kidney Dr Rx, ~2 mths ago arformotero 0 Yes [id number] 15ug Use 2 mL [facility] L 15 mcg/2 1-05 as ity of mL 00:00: directed [place] nebulizer 00 in the Medical solution morning Branch and 2 mL in the evening. ipratropium 0 Yes [id number] .5mg Inhale 2.5 [facility] 0.02 % 1-05 mL every 4 ity of nebulizer 00:00: (four) [place] solution 00 hours as Medical needed for Branch Wheezing or Shortness of Breath. albuterol 0 Yes [id number] 2{puff} Inhale 2 [facility] 90 1-05 Puffs ity of mcg/actuati 00:00: every 6 [place] as on inhaler 00 (six) Medical hours as Branch needed for Wheezing or Shortness of Breath. albuterol 0 Yes [id number] 2.5mg Inhale 3 [facility] 2.5 mg /3 1-05 mL every 2 ity of mL (0.083 00:00: (two) [place] %) 00 hours as Medical nebulizer needed for Bran ch solution Shortness of Breath or Wheezing. cloNIDine 0 Yes [id number] .2mg Take 1 [facility] nivers 0.2 mg 1-05 tablet by ity of tablet 00:00: mouth 3 [place] 00 (three) Medical times Branch daily as needed (Uncontrol led Hypertensi on). Take 1 Tab if BP > 150/90 NIFEdipine 2022-0 Yes [id number] 30mg Take 1 U nivers ER 30 mg 1-05 tablet by ity of tablet 00:00: mouth in [place] 00 the Medical morning. Branch levothyroxi 0 Yes [id number] 150ug Take 1 [facility] ne 150 mcg 1-05 tablet by ity of tablet 00:00: mouth [place] 00 every Medical morning. Branch tamsulosin 0 Yes [id number] .4mg Take 1 [facility] 0.4 mg 24 1-05 9102 capsule by ity of hr capsule 00:00: mouth in [place] as 00 the Medical morning. Branch budesonide 0 Yes [id number] .5mg Inhale 2 [facility] 0.5 mg/2 mL 1-05 mL in the ity of nebulizer 00:00: morning [place] solution 00 and 2 mL Medical in the Branch evening. traZODone 2022-0 Yes [id number] 50mg Take 1 [facility] nivers 50 mg 1-05 tablet by ity of tablet 00:00: mouth at [place] 00 bedtime. Medical Branch doxepin 25 2022-0 Yes [id number] 25mg Take 1 [facility] mg capsule 1-05 capsule by ity of 00:00: mouth at [place] 00 bedtime. Medical Branch glipiZIDE 2022-0 Yes [id number] 2.5mg Take 1 [facility] nivers XL 2.5 mg 1-05 tablet by ity o f 24 hr 00:00: mouth in [place] tablet 00 the Medical morning Branch and 1 tablet in the evening. bumetanide 2022-0 Yes 1mg Take 1 [facility] rs 1 mg tablet 1-05 tablet by ity of 00:00: mouth [place] 00 every Medical morning Branch and evening. Indication s: reports kidney Dr Rx, ~2 mths ago arformotero 0 Yes [id number] 15ug Use 2 mL [facility] L 15 mcg/2 1-05 as ity of mL 00:00: directed [place] nebulizer 00 in the Medical solution morning Branch and 2 mL in the evening. ipratropium 0 Yes [id number] .5mg Inhale 2.5 [facility] 0.02 % 1-05 mL every 4 ity of nebulizer 00:00: (four) [place] solution 00 hours as Medical needed for Branch Wheezing or Shortness of Breath. albuterol Yes [id number] 2{puff} Inhale 2 [facility] 90 1-05 Puffs ity of mcg/actuati 00:00: every 6 [place] as on inhaler 00 (six) Medical hours as Branch needed for Wheezing or Shortness of Breath. albuterol Yes [id number] 2.5mg Inhale 3 [facility] 2.5 mg /3 1-05 mL every 2 ity of mL (0.083 00:00: (two) [place] %) 00 hours as Medical nebulizer needed for Bran ch solution Shortness of Breath or Wheezing. cloNIDine Yes [id number] .2mg Take 1 [facility] nivers 0.2 mg 1-05 tablet by ity of tablet 00:00: mouth 3 [place] 00 (three) Medical times Branch daily as needed (Uncontrol led Hypertensi on). Take 1 Tab if BP > 150/90 NIFEdipine 2022-0 Yes [id number] 30mg Take 1 U nivers ER 30 mg 1-05 tablet by ity of tablet 00:00: mouth in [place] 00 the Medical morning. Branch levothyroxi 2022-0 Yes [id number] 150ug Take 1 [facility] ne 150 mcg 1-05 tablet by ity of tablet 00:00: mouth [place] 00 every Medical morning. Branch tamsulosin 0 Yes [id number] .4mg Take 1 [facility] 0.4 mg 24 1-05 9102 capsule by ity of hr capsule 00:00: mouth in [place] as 00 the Medical morning. Branch budesonide Yes [id number] .5mg Inhale 2 [facility] 0.5 mg/2 mL 1-05 mL in the ity of nebulizer 00:00: morning [place] solution 00 and 2 mL Medical in the Branch evening. traZODone 0 Yes [id number] 50mg Take 1 U nivers 50 mg 1-05 tablet by ity of tablet 00:00: mouth at [place] 00 bedtime. Medical Branch doxepin 25 2022-0 Yes [id number] 25mg Take 1 [facility] mg capsule 1-05 capsule by ity of 00:00: mouth at [place] 00 bedtime. Medical Branch glipiZIDE Yes [id number] 2.5mg Take 1 [facility] nivers XL 2.5 mg 1-05 tablet by ity o f 24 hr 00:00: mouth in [place] tablet 00 the Medical morning Branch and 1 tablet in the evening. bumetanide Yes 1mg Take 1 [facility] rs 1 mg tablet 1-05 tablet by ity of 00:00: mouth [place] 00 every Medical morning Branch and evening. Indication s: reports kidney Dr Rx, ~2 mths ago arformotero Yes [id number] 15ug Use 2 mL [facility] L 15 mcg/2 1-05 as ity of mL 00:00: directed [place] nebulizer 00 in the Medical solution morning Branch and 2 mL in the evening. ipratropium Yes [id number] .5mg Inhale 2.5 [facility] 0.02 % 1-05 mL every 4 ity of nebulizer 00:00: (four) [place] solution 00 hours as Medical needed for Branch Wheezing or Shortness of Breath. albuterol Yes [id number] 2{puff} Inhale 2 [facility] 90 1-05 Puffs ity of mcg/actuati 00:00: every 6 [place] as on inhaler 00 (six) Medical hours as Branch needed for Wheezing or Shortness of Breath. albuterol Yes [id number] 2.5mg Inhale 3 [facility] 2.5 mg /3 1-05 mL every 2 ity of mL (0.083 00:00: (two) [place] %) 00 hours as Medical nebulizer needed for Bran ch solution Shortness of Breath or Wheezing. cloNIDine Yes [id number] .2mg Take 1 [facility] nivers 0.2 mg 1-05 tablet by ity of tablet 00:00: mouth 3 [place] 00 (three) Medical times Branch daily as needed (Uncontrol led Hypertensi on). Take 1 Tab if BP > 150/90 NIFEdipine 2022-0 Yes [id number] 30mg Take 1 U nivers ER 30 mg 1-05 tablet by ity of tablet 00:00: mouth in [place] 00 the Medical morning. Branch levothyroxi 0 Yes [id number] 150ug Take 1 [facility] ne 150 mcg 1-05 tablet by ity of tablet 00:00: mouth [place] 00 every Medical morning. Branch tamsulosin 0 Yes [id number] .4mg Take 1 [facility] 0.4 mg 24 1-05 9102 capsule by ity of hr capsule 00:00: mouth in [place] as 00 the Medical morning. Branch budesonide Yes [id number] .5mg Inhale 2 [facility] 0.5 mg/2 mL 1-05 mL in the ity of nebulizer 00:00: morning [place] solution 00 and 2 mL Medical in the Branch evening. traZODone Yes [id number] 50mg Take 1 U nivers 50 mg 1-05 tablet by ity of tablet 00:00: mouth at [place] 00 bedtime. Medical Branch doxepin 25 0 Yes [id number] 25mg Take 1 [facility] mg capsule 1-05 capsule by ity of 00:00: mouth at [place] [address] bedtime. Medical Branch glipiZIDE 0 Yes [id number] 2.5mg Take 1 U nivers XL 2.5 mg 1-05 tablet by ity o f 24 hr 00:00: mouth in [place] tablet 00 the Medical morning Branch and 1 tablet in the evening. bumetanide Yes 1mg Take 1 [facility] rs 1 mg tablet 1-05 tablet by ity of 00:00: mouth [place] 00 every Medical morning Branch and evening. Indication s: reports kidney Dr Rx, ~2 mths ago arformotero 2022-0 Yes [id number] 15ug Use 2 mL [facility] L 15 mcg/2 1-05 as ity of mL 00:00: directed [place] nebulizer 00 in the Medical solution morning Branch and 2 mL in the evening. ipratropium 2022-0 Yes [id number] .5mg Inhale 2.5 [facility] 0.02 % 1-05 mL every 4 ity of nebulizer 00:00: (four) [place] solution 00 hours as Medical needed for Branch Wheezing or Shortness of Breath. albuterol Yes [id number] 2{puff} Inhale 2 [facility] 90 1-05 Puffs ity of mcg/actuati 00:00: every 6 [place] as on inhaler 00 (six) Medical hours as Branch needed for Wheezing or Shortness of Breath. albuterol 0 Yes [id number] 2.5mg Inhale 3 [facility] 2.5 mg /3 1-05 mL every 2 ity of mL (0.083 00:00: (two) [place] %) 00 hours as Medical nebulizer needed for Bran ch solution Shortness of Breath or Wheezing. cloNIDine Yes [id number] .2mg Take 1 U nivers 0.2 mg 1-05 tablet by ity of tablet 00:00: mouth 3 [place] 00 (three) Medical times Branch daily as needed (Uncontrol led Hypertensi on). Take 1 Tab if BP > 150/90 NIFEdipine Yes [id number] 30mg Take 1 U nivers ER 30 mg 1-05 tablet by ity of tablet 00:00: mouth in [place] 00 the Medical morning. Branch levothyroxi Yes [id number] 150ug Take 1 [facility] ne 150 mcg 1-05 tablet by ity of tablet 00:00: mouth [place] 00 every Medical morning. Branch tamsulosin Yes [id number] .4mg Take 1 [facility] 0.4 mg 24 1-05 9102 capsule by ity of hr capsule 00:00: mouth in [place] as 00 the Medical morning. Branch budesonide Yes [id number] .5mg Inhale 2 [facility] 0.5 mg/2 mL 1-05 mL in the ity of nebulizer 00:00: morning [place] solution 00 and 2 mL Medical in the Branch evening. traZODone 0 Yes [id number] 50mg Take 1 U nivers 50 mg 1-05 tablet by ity of tablet 00:00: mouth at [place] 00 bedtime. Medical Branch doxepin 25 0 Yes [id number] 25mg Take 1 [facility] mg capsule 1-05 capsule by ity of 00:00: mouth at [place] 00 bedtime. Medical Branch glipiZIDE 0 Yes [id number] 2.5mg Take 1 U nivers XL 2.5 mg 1-05 tablet by ity o f 24 hr 00:00: mouth in [place] tablet 00 the Medical morning Branch and 1 tablet in the evening. bumetanide Yes 1mg Take 1 [facility] rs 1 mg tablet 1-05 tablet by ity of 00:00: mouth [place] 00 every Medical morning Branch and evening. Indication s: reports kidney Dr Rx, ~2 mths ago arformotero Yes [id number] 15ug Use 2 mL [facility] L 15 mcg/2 1-05 as ity of mL 00:00: directed [place] nebulizer 00 in the Medical solution morning Branch and 2 mL in the evening. ipratropium Yes [id number] .5mg Inhale 2.5 [facility] 0.02 % 1-05 mL every 4 ity of nebulizer 00:00: (four) [place] solution 00 hours as Medical needed for Branch Wheezing or Shortness of Breath. albuterol Yes [id number] 2{puff} Inhale 2 [facility] 90 1-05 Puffs ity of mcg/actuati 00:00: every 6 [place] as on inhaler 00 (six) Medical hours as Branch needed for Wheezing or Shortness of Breath. albuterol Yes [id number] 2.5mg Inhale 3 [facility] 2.5 mg /3 1-05 mL every 2 ity of mL (0.083 00:00: (two) [place] %) 00 hours as Medical nebulizer needed for Bran ch solution Shortness of Breath or Wheezing. cloNIDine Yes [id number] .2mg Take 1 [facility] nivers 0.2 mg 1-05 tablet by ity of tablet 00:00: mouth 3 [place] 00 (three) Medical times Branch daily as needed (Uncontrol led Hypertensi on). Take 1 Tab if BP > 150/90 NIFEdipine Yes [id number] 30mg Take 1 U nivers ER 30 mg 1-05 tablet by ity of tablet 00:00: mouth in [place] 00 the Medical morning. Branch levothyroxi Yes [id number] 150ug Take 1 [facility] ne 150 mcg 1-05 tablet by ity of tablet 00:00: mouth [place] 00 every Medical morning. Branch tamsulosin Yes [id number] .4mg Take 1 [facility] 0.4 mg 24 1-05 9102 capsule by ity of hr capsule 00:00: mouth in [place] as 00 the Medical morning. Branch budesonide 0 Yes [id number] .5mg Inhale 2 [facility] 0.5 mg/2 mL 1-05 mL in the ity of nebulizer 00:00: morning [place] solution 00 and 2 mL Medical in the Branch evening. traZODone 0 Yes [id number] 50mg Take 1 [facility] nivers 50 mg 1-05 tablet by ity of tablet 00:00: mouth at [place] 00 bedtime. Medical Branch doxepin 25 2022-0 Yes [id number] 25mg Take 1 [facility] mg capsule 1-05 capsule by ity of 00:00: mouth at [place] 00 bedtime. Medical Branch glipiZIDE Yes [id number] 2.5mg Take 1 [facility] nivers XL 2.5 mg 1-05 tablet by ity o f 24 hr 00:00: mouth in [place] tablet 00 the Medical morning Branch and 1 tablet in the evening. bumetanide Yes 1mg Take 1 [facility] rs 1 mg tablet 1-05 tablet by ity of 00:00: mouth [place] 00 every Medical morning Branch and evening. Indication s: reports kidney Dr Rx, ~2 mths ago arformotero 0 Yes [id number] 15ug Use 2 mL [facility] L 15 mcg/2 1-05 as ity of mL 00:00: directed [place] nebulizer 00 in the Medical solution morning Branch and 2 mL in the evening. ipratropium 0 Yes [id number] .5mg Inhale 2.5 [facility] 0.02 % 1-05 mL every 4 ity of nebulizer 00:00: (four) [place] solution 00 hours as Medical needed for Branch Wheezing or Shortness of Breath. albuterol 2022-0 Yes [id number] 2{puff} Inhale 2 [facility] 90 1-05 Puffs ity of mcg/actuati 00:00: every 6 [place] as on inhaler 00 (six) Medical hours as Branch needed for Wheezing or Shortness of Breath. albuterol 2022-0 Yes [id number] 2.5mg Inhale 3 [facility] 2.5 mg /3 1-05 mL every 2 ity of mL (0.083 00:00: (two) [place] %) 00 hours as Medical nebulizer needed for Bran ch solution Shortness of Breath or Wheezing. cloNIDine Yes [id number] .2mg Take 1 [facility] nivers 0.2 mg 1-05 tablet by ity of tablet 00:00: mouth 3 [place] 00 (three) Medical times Branch daily as needed (Uncontrol led Hypertensi on). Take 1 Tab if BP > 150/90 NIFEdipine Yes [id number] 30mg Take 1 U nivers ER 30 mg 1-05 tablet by ity of tablet 00:00: mouth in [place] 00 the Medical morning. Branch levothyroxi Yes [id number] 150ug Take 1 [facility] ne 150 mcg 1-05 tablet by ity of tablet 00:00: mouth [place] 00 every Medical morning. Branch tamsulosin Yes [id number] .4mg Take 1 [facility] 0.4 mg 24 1-05 9102 capsule by ity of hr capsule 00:00: mouth in [place] as 00 the Medical morning. Branch budesonide Yes [id number] .5mg Inhale 2 [facility] 0.5 mg/2 mL 1-05 mL in the ity of nebulizer 00:00: morning [place] solution 00 and 2 mL Medical in the Branch evening. traZODone Yes [id number] 50mg Take 1 [facility] nivers 50 mg 1-05 tablet by ity of tablet 00:00: mouth at [place] 00 bedtime. Medical Branch doxepin 25 Yes [id number] 25mg Take 1 [facility] mg capsule 1-05 capsule by ity of 00:00: mouth at [place] 00 bedtime. Medical Branch glipiZIDE Yes [id number] 2.5mg Take 1 U nivers XL 2.5 mg 1-05 tablet by ity o f 24 hr 00:00: mouth in [place] tablet 00 the Medical morning Branch and 1 tablet in the evening. bumetanide Yes 1mg Take 1 [facility] rs 1 mg tablet 1-05 tablet by ity of 00:00: mouth [place] 00 every Medical morning Branch and evening. Indication s: reports kidney Dr Rx, ~2 mths ago arformotero Yes [id number] 15ug Use 2 mL [facility] L 15 mcg/2 1-05 as ity of mL 00:00: directed [place] nebulizer 00 in the Medical solution morning Branch and 2 mL in the evening. ipratropium Yes [id number] .5mg Inhale 2.5 [facility] 0.02 % 1-05 mL every 4 ity of nebulizer 00:00: (four) [place] solution 00 hours as Medical needed for Branch Wheezing or Shortness of Breath. albuterol Yes [id number] 2{puff} Inhale 2 [facility] 90 1-05 Puffs ity of mcg/actuati 00:00: every 6 [place] as on inhaler 00 (six) Medical hours as Branch needed for Wheezing or Shortness of Breath. albuterol Yes [id number] 2.5mg Inhale 3 [facility] 2.5 mg /3 1-05 mL every 2 ity of mL (0.083 00:00: (two) [place] %) 00 hours as Medical nebulizer needed for Bran ch solution Shortness of Breath or Wheezing. cloNIDine Yes [id number] .2mg Take 1 [facility] nivers 0.2 mg 1-05 tablet by ity of tablet 00:00: mouth 3 [place] 00 (three) Medical times Branch daily as needed (Uncontrol led Hypertensi on). Take 1 Tab if BP > 150/90 NIFEdipine Yes [id number] 30mg Take 1 U nivers ER 30 mg 1-05 tablet by ity of tablet 00:00: mouth in [place] 00 the Medical morning. Branch levothyroxi Yes [id number] 150ug Take 1 [facility] ne 150 mcg 1-05 tablet by ity of tablet 00:00: mouth [place] 00 every Medical morning. Branch tamsulosin Yes [id number] .4mg Take 1 [facility] 0.4 mg 24 1-05 9102 capsule by ity of hr capsule 00:00: mouth in [place] as 00 the Medical morning. Branch budesonide Yes [id number] .5mg Inhale 2 [facility] 0.5 mg/2 mL 1-05 mL in the ity of nebulizer 00:00: morning [place] solution 00 and 2 mL Medical in the Branch evening. traZODone Yes [id number] 50mg Take 1 [facility] nivers 50 mg 1-05 tablet by ity of tablet 00:00: mouth at [place] 00 bedtime. Medical Branch doxepin 25 Yes [id number] 25mg Take 1 [facility] mg capsule 1-05 capsule by ity of 00:00: mouth at [place] 00 bedtime. Medical Branch glipiZIDE Yes [id number] 2.5mg Take 1 U nivers XL 2.5 mg 1-05 tablet by ity o f 24 hr 00:00: mouth in [place] tablet 00 the Medical morning Branch and 1 tablet in the evening. bumetanide Yes 1mg Take 1 [facility] rs 1 mg tablet 1-05 tablet by ity of 00:00: mouth [place] 00 every Medical morning Branch and evening. Indication s: reports kidney Dr Rx, ~2 mths ago arformotero Yes [id number] 15ug Use 2 mL [facility] L 15 mcg/2 1-05 as ity of mL 00:00: directed [place] nebulizer 00 in the Medical solution morning Branch and 2 mL in the evening. ipratropium Yes [id number] .5mg Inhale 2.5 [facility] 0.02 % 1-05 mL every 4 ity of nebulizer 00:00: (four) [place] solution 00 hours as Medical needed for Branch Wheezing or Shortness of Breath. albuterol Yes [id number] 2{puff} Inhale 2 [facility] 90 1-05 Puffs ity of mcg/actuati 00:00: every 6 [place] as on inhaler 00 (six) Medical hours as Branch needed for Wheezing or Shortness of Breath. albuterol Yes [id number] 2.5mg Inhale 3 [facility] 2.5 mg /3 1-05 mL every 2 ity of mL (0.083 00:00: (two) [place] %) 00 hours as Medical nebulizer needed for Bran ch solution Shortness of Breath or Wheezing. cloNIDine Yes [id number] .2mg Take 1 [facility] nivers 0.2 mg 1-05 tablet by ity of tablet 00:00: mouth 3 [place] 00 (three) Medical times Branch daily as needed (Uncontrol led Hypertensi on). Take 1 Tab if BP > 150/90 NIFEdipine Yes [id number] 30mg Take 1 U nivers ER 30 mg 1-05 tablet by ity of tablet 00:00: mouth in [place] 00 the Medical morning. Branch levothyroxi Yes [id number] 150ug Take 1 [facility] ne 150 mcg 1-05 tablet by ity of tablet 00:00: mouth [place] 00 every Medical morning. Branch tamsulosin Yes [id number] .4mg Take 1 [facility] 0.4 mg 24 1-05 9102 capsule by ity of hr capsule 00:00: mouth in [place] as 00 the Medical morning. Branch budesonide Yes [id number] .5mg Inhale 2 [facility] 0.5 mg/2 mL 1-05 mL in the ity of nebulizer 00:00: morning [place] solution 00 and 2 mL Medical in the Branch evening. traZODone Yes [id number] 50mg Take 1 [facility] nivers 50 mg 1-05 tablet by ity of tablet 00:00: mouth at [place] 00 bedtime. Medical Branch doxepin 25 Yes [id number] 25mg Take 1 [facility] mg capsule 1-05 capsule by ity of 00:00: mouth at [place] 00 bedtime. Medical Branch glipiZIDE Yes [id number] 2.5mg Take 1 U nivers XL 2.5 mg 1-05 tablet by ity o f 24 hr 00:00: mouth in [place] tablet 00 the Medical morning Branch and 1 tablet in the evening. bumetanide Yes 1mg Take 1 [facility] rs 1 mg tablet 1-05 tablet by ity of 00:00: mouth [place] 00 every Medical morning Branch and evening. Indication s: reports kidney Dr Rx, ~2 mths ago arformotero 0 Yes [id number] 15ug Use 2 mL [facility] L 15 mcg/2 1-05 as ity of mL 00:00: directed [place] nebulizer 00 in the Medical solution morning Branch and 2 mL in the evening. ipratropium 0 Yes [id number] .5mg Inhale 2.5 [facility] 0.02 % 1-05 mL every 4 ity of nebulizer 00:00: (four) [place] solution 00 hours as Medical needed for Branch Wheezing or Shortness of Breath. albuterol 0 Yes [id number] 2{puff} Inhale 2 [facility] 90 1-05 Puffs ity of mcg/actuati 00:00: every 6 [place] as on inhaler 00 (six) Medical hours as Branch needed for Wheezing or Shortness of Breath. albuterol Yes [id number] 2.5mg Inhale 3 [facility] 2.5 mg /3 1-05 mL every 2 ity of mL (0.083 00:00: (two) [place] %) 00 hours as Medical nebulizer needed for Bran ch solution Shortness of Breath or Wheezing. cloNIDine Yes [id number] .2mg Take 1 [facility] nivers 0.2 mg 1-05 tablet by ity of tablet 00:00: mouth 3 [place] 00 (three) Medical times Branch daily as needed (Uncontrol led Hypertensi on). Take 1 Tab if BP > 150/90 NIFEdipine 0 Yes [id number] 30mg Take 1 U nivers ER 30 mg 1-05 tablet by ity of tablet 00:00: mouth in [place] 00 the Medical morning. Branch levothyroxi Yes [id number] 150ug Take 1 [facility] ne 150 mcg 1-05 tablet by ity of tablet 00:00: mouth [place] 00 every Medical morning. Branch tamsulosin Yes [id number] .4mg Take 1 [facility] 0.4 mg 24 1-05 9102 capsule by ity of hr capsule 00:00: mouth in [place] as 00 the Medical morning. Branch budesonide Yes [id number] .5mg Inhale 2 [facility] 0.5 mg/2 mL 1-05 mL in the ity of nebulizer 00:00: morning [place] solution 00 and 2 mL Medical in the Branch evening. traZODone Yes [id number] 50mg Take 1 U nivers 50 mg 1-05 tablet by ity of tablet 00:00: mouth at [place] 00 bedtime. Medical Branch doxepin 25 Yes [id number] 25mg Take 1 [facility] mg capsule 1-05 capsule by ity of 00:00: mouth at [place] 00 bedtime. Medical Branch glipiZIDE Yes [id number] 2.5mg Take 1 [facility] nivers XL 2.5 mg 1-05 tablet by ity o f 24 hr 00:00: mouth in [place] tablet 00 the Medical morning Branch and 1 tablet in the evening. bumetanide Yes 1mg Take 1 [facility] rs 1 mg tablet 1-05 tablet by ity of 00:00: mouth [place] 00 every Medical morning Branch and evening. Indication s: reports kidney Dr Rx, ~2 mths ago arformotero Yes [id number] 15ug Use 2 mL [facility] L 15 mcg/2 1-05 as ity of mL 00:00: directed [place] nebulizer 00 in the Medical solution morning Branch and 2 mL in the evening. ipratropium Yes [id number] .5mg Inhale 2.5 [facility] 0.02 % 1-05 mL every 4 ity of nebulizer 00:00: (four) [place] solution 00 hours as Medical needed for Branch Wheezing or Shortness of Breath. albuterol Yes [id number] 2{puff} Inhale 2 [facility] 90 1-05 Puffs ity of mcg/actuati 00:00: every 6 [place] as on inhaler 00 (six) Medical hours as Branch needed for Wheezing or Shortness of Breath. albuterol Yes [id number] 2.5mg Inhale 3 [facility] 2.5 mg /3 1-05 mL every 2 ity of mL (0.083 00:00: (two) [place] %) 00 hours as Medical nebulizer needed for Bran ch solution Shortness of Breath or Wheezing. cloNIDine Yes [id number] .2mg Take 1 [facility] nivers 0.2 mg 1-05 tablet by ity of tablet 00:00: mouth 3 [place] 00 (three) Medical times Branch daily as needed (Uncontrol led Hypertensi on). Take 1 Tab if BP > 150/90 NIFEdipine Yes [id number] 30mg Take 1 U nivers ER 30 mg 1-05 tablet by ity of tablet 00:00: mouth in [place] 00 the Medical morning. Branch levothyroxi Yes [id number] 150ug Take 1 [facility] ne 150 mcg 1-05 tablet by ity of tablet 00:00: mouth [place] 00 every Medical morning. Branch tamsulosin Yes [id number] .4mg Take 1 [facility] 0.4 mg 24 1-05 9102 capsule by ity of hr capsule 00:00: mouth in [place] as 00 the Medical morning. Branch budesonide 0 Yes [id number] .5mg Inhale 2 [facility] 0.5 mg/2 mL 1-05 mL in the ity of nebulizer 00:00: morning [place] solution 00 and 2 mL Medical in the Branch evening. traZODone 0 Yes [id number] 50mg Take 1 U nivers 50 mg 1-05 tablet by ity of tablet 00:00: mouth at [place] 00 bedtime. Medical Branch doxepin 25 0 Yes [id number] 25mg Take 1 [facility] mg capsule 1-05 capsule by ity of 00:00: mouth at [place] 00 bedtime. Medical Branch glipiZIDE Yes [id number] 2.5mg Take 1 U nivers XL 2.5 mg 1-05 tablet by ity o f 24 hr 00:00: mouth in [place] tablet 00 the Medical morning Branch and 1 tablet in the evening. bumetanide Yes 1mg Take 1 [facility] rs 1 mg tablet 1-05 tablet by ity of 00:00: mouth [place] 00 every Medical morning Branch and evening. Indication s: reports kidney Dr Rx, ~2 mths ago arformotero 0 Yes [id number] 15ug Use 2 mL [facility] L 15 mcg/2 1-05 as ity of mL 00:00: directed [place] nebulizer 00 in the Medical solution morning Branch and 2 mL in the evening. ipratropium Yes [id number] .5mg Inhale 2.5 [facility] 0.02 % 1-05 mL every 4 ity of nebulizer 00:00: (four) [place] solution 00 hours as Medical needed for Branch Wheezing or Shortness of Breath. albuterol Yes [id number] 2{puff} Inhale 2 [facility] 90 1-05 Puffs ity of mcg/actuati 00:00: every 6 [place] as on inhaler 00 (six) Medical hours as Branch needed for Wheezing or Shortness of Breath. albuterol 0 Yes [id number] 2.5mg Inhale 3 [facility] 2.5 mg /3 1-05 mL every 2 ity of mL (0.083 00:00: (two) [place] %) 00 hours as Medical nebulizer needed for Bran ch solution Shortness of Breath or Wheezing. cloNIDine Yes [id number] .2mg Take 1 U nivers 0.2 mg 1-05 tablet by ity of tablet 00:00: mouth 3 [place] 00 (three) Medical times Branch daily as needed (Uncontrol led Hypertensi on). Take 1 Tab if BP > 150/90 NIFEdipine 0 Yes [id number] 30mg Take 1 U nivers ER 30 mg 1-05 tablet by ity of tablet 00:00: mouth in [place] 00 the Medical morning. Branch levothyroxi Yes [id number] 150ug Take 1 [facility] ne 150 mcg 1-05 tablet by ity of tablet 00:00: mouth [place] 00 every Medical morning. Branch tamsulosin Yes [id number] .4mg Take 1 [facility] 0.4 mg 24 1-05 9102 capsule by ity of hr capsule 00:00: mouth in [place] as 00 the Medical morning. Branch budesonide Yes [id number] .5mg Inhale 2 [facility] 0.5 mg/2 mL 1-05 mL in the ity of nebulizer 00:00: morning [place] solution 00 and 2 mL Medical in the Branch evening. traZODone Yes [id number] 50mg Take 1 U nivers 50 mg 1-05 tablet by ity of tablet 00:00: mouth at [place] 00 bedtime. Medical Branch doxepin 25 Yes [id number] 25mg Take 1 [facility] mg capsule 1-05 capsule by ity of 00:00: mouth at [place] 00 bedtime. Medical Branch glipiZIDE 0 Yes [id number] 2.5mg Take 1 U nivers XL 2.5 mg 1-05 tablet by ity o f 24 hr 00:00: mouth in [place] tablet 00 the Medical morning Branch and 1 tablet in the evening. bumetanide Yes 1mg Take 1 [facility] rs 1 mg tablet 1-05 tablet by ity of 00:00: mouth [place] 00 every Medical morning Branch and evening. Indication s: reports kidney Dr Rx, ~2 mths ago arformotero 0 Yes [id number] 15ug Use 2 mL [facility] L 15 mcg/2 1-05 as ity of mL 00:00: directed [place] nebulizer 00 in the Medical solution morning Branch and 2 mL in the evening. ipratropium Yes [id number] .5mg Inhale 2.5 [facility] 0.02 % 1-05 mL every 4 ity of nebulizer 00:00: (four) [place] solution 00 hours as Medical needed for Branch Wheezing or Shortness of Breath. albuterol Yes [id number] 2{puff} Inhale 2 [facility] 90 1-05 Puffs ity of mcg/actuati 00:00: every 6 [place] as on inhaler 00 (six) Medical hours as Branch needed for Wheezing or Shortness of Breath. albuterol Yes [id number] 2.5mg Inhale 3 [facility] 2.5 mg /3 1-05 mL every 2 ity of mL (0.083 00:00: (two) [place] %) 00 hours as Medical nebulizer needed for Bran ch solution Shortness of Breath or Wheezing. cloNIDine Yes [id number] .2mg Take 1 [facility] nivers 0.2 mg 1-05 tablet by ity of tablet 00:00: mouth 3 [place] 00 (three) Medical times Branch daily as needed (Uncontrol led Hypertensi on). Take 1 Tab if BP > 150/90 NIFEdipine Yes [id number] 30mg Take 1 U nivers ER 30 mg 1-05 tablet by ity of tablet 00:00: mouth in [place] 00 the Medical morning. Branch levothyroxi Yes [id number] 150ug Take 1 [facility] ne 150 mcg 1-05 tablet by ity of tablet 00:00: mouth [place] 00 every Medical morning. Branch tamsulosin Yes [id number] .4mg Take 1 [facility] 0.4 mg 24 1-05 9102 capsule by ity of hr capsule 00:00: mouth in [place] as 00 the Medical morning. Branch budesonide Yes [id number] .5mg Inhale 2 [facility] 0.5 mg/2 mL 1-05 mL in the ity of nebulizer 00:00: morning [place] solution 00 and 2 mL Medical in the Branch evening. traZODone 0 Yes [id number] 50mg Take 1 [facility] nivers 50 mg 1-05 tablet by ity of tablet 00:00: mouth at [place] 00 bedtime. Medical Branch doxepin 25 0 Yes [id number] 25mg Take 1 [facility] mg capsule 1-05 capsule by ity of 00:00: mouth at [place] 00 bedtime. Medical Branch glipiZIDE Yes [id number] 2.5mg Take 1 [facility] nivers XL 2.5 mg 1-05 tablet by ity o f 24 hr 00:00: mouth in [place] tablet 00 the Medical morning Branch and 1 tablet in the evening. bumetanide Yes 1mg Take 1 [facility] rs 1 mg tablet 1-05 tablet by ity of 00:00: mouth [place] 00 every Medical morning Branch and evening. Indication s: reports kidney Dr Rx, ~2 mths ago arformotero Yes [id number] 15ug Use 2 mL [facility] L 15 mcg/2 1-05 as ity of mL 00:00: directed [place] nebulizer 00 in the Medical solution morning Branch and 2 mL in the evening. ipratropium Yes [id number] .5mg Inhale 2.5 [facility] 0.02 % 1-05 mL every 4 ity of nebulizer 00:00: (four) [place] solution 00 hours as Medical needed for Branch Wheezing or Shortness of Breath. albuterol Yes [id number] 2{puff} Inhale 2 [facility] 90 1-05 Puffs ity of mcg/actuati 00:00: every 6 [place] as on inhaler 00 (six) Medical hours as Branch needed for Wheezing or Shortness of Breath. albuterol Yes [id number] 2.5mg Inhale 3 [facility] 2.5 mg /3 1-05 mL every 2 ity of mL (0.083 00:00: (two) [place] %) 00 hours as Medical nebulizer needed for Bran ch solution Shortness of Breath or Wheezing. cloNIDine Yes [id number] .2mg Take 1 [facility] nivers 0.2 mg 1-05 tablet by ity of tablet 00:00: mouth 3 [place] 00 (three) Medical times Branch daily as needed (Uncontrol led Hypertensi on). Take 1 Tab if BP > 150/90 NIFEdipine Yes [id number] 30mg Take 1 U nivers ER 30 mg 1-05 tablet by ity of tablet 00:00: mouth in [place] 00 the Medical morning. Branch levothyroxi Yes [id number] 150ug Take 1 [facility] ne 150 mcg 1-05 tablet by ity of tablet 00:00: mouth [place] 00 every Medical morning. Branch tamsulosin 0 Yes [id number] .4mg Take 1 [facility] 0.4 mg 24 1-05 9102 capsule by ity of hr capsule 00:00: mouth in [place] as 00 the Medical morning. Branch budesonide 2022-0 Yes [id number] .5mg Inhale 2 [facility] 0.5 mg/2 mL 1-05 mL in the ity of nebulizer 00:00: morning [place] solution 00 and 2 mL Medical in the Branch evening. traZODone 2022-0 Yes [id number] 50mg Take 1 U nivers 50 mg 1-05 tablet by ity of tablet 00:00: mouth at [place] 00 bedtime. Medical Branch doxepin 25 2022-0 Yes [id number] 25mg Take 1 [facility] mg capsule 1-05 capsule by ity of 00:00: mouth at [place] 00 bedtime. Medical Branch glipiZIDE 2022-0 Yes [id number] 2.5mg Take 1 U nivers XL 2.5 mg 1-05 tablet by ity o f 24 hr 00:00: mouth in [place] tablet 00 the Medical morning Branch and 1 tablet in the evening. bumetanide 0 Yes 1mg Take 1 [facility] rs 1 mg tablet 1-05 tablet by ity of 00:00: mouth [place] 00 every Medical morning Branch and evening. Indication s: reports kidney Dr Rx, ~2 mths ago arformotero 2022-0 Yes [id number] 15ug Use 2 mL [facility] L 15 mcg/2 1-05 as ity of mL 00:00: directed [place] nebulizer 00 in the Medical solution morning Branch and 2 mL in the evening. ipratropium 2022-0 Yes [id number] .5mg Inhale 2.5 [facility] 0.02 % 1-05 mL every 4 ity of nebulizer 00:00: (four) [place] solution 00 hours as Medical needed for Branch Wheezing or Shortness of Breath. albuterol 2022-0 Yes [id number] 2{puff} Inhale 2 [facility] 90 1-05 Puffs ity of mcg/actuati 00:00: every 6 [place] as on inhaler 00 (six) Medical hours as Branch needed for Wheezing or Shortness of Breath. albuterol 0 Yes [id number] 2.5mg Inhale 3 [facility] 2.5 mg /3 1-05 mL every 2 ity of mL (0.083 00:00: (two) [place] %) 00 hours as Medical nebulizer needed for Bran ch solution Shortness of Breath or Wheezing. cloNIDine 0 Yes [id number] .2mg Take 1 [facility] nivers 0.2 mg 1-05 tablet by ity of tablet 00:00: mouth 3 [place] 00 (three) Medical times Branch daily as needed (Uncontrol led Hypertensi on). Take 1 Tab if BP > 150/90 NIFEdipine 2022-0 Yes [id number] 30mg Take 1 U nivers ER 30 mg 1-05 tablet by ity of tablet 00:00: mouth in [place] 00 the Medical morning. Branch levothyroxi Yes [id number] 150ug Take 1 [facility] ne 150 mcg 1-05 tablet by ity of tablet 00:00: mouth [place] 00 every Medical morning. Branch tamsulosin 0 Yes [id number] .4mg Take 1 [facility] 0.4 mg 24 1-05 9102 capsule by ity of hr capsule 00:00: mouth in [place] as 00 the Medical morning. Branch budesonide Yes [id number] .5mg Inhale 2 [facility] 0.5 mg/2 mL 1-05 mL in the ity of nebulizer 00:00: morning [place] solution 00 and 2 mL Medical in the Branch evening. traZODone 0 Yes [id number] 50mg Take 1 [facility] nivers 50 mg 1-05 tablet by ity of tablet 00:00: mouth at [place] 00 bedtime. Medical Branch doxepin 25 2022-0 Yes [id number] 25mg Take 1 [facility] mg capsule 1-05 capsule by ity of 00:00: mouth at [place] 00 bedtime. Medical Branch glipiZIDE 2022-0 Yes [id number] 2.5mg Take 1 [facility] nivers XL 2.5 mg 1-05 tablet by ity o f 24 hr 00:00: mouth in [place] tablet 00 the Medical morning Branch and 1 tablet in the evening. bumetanide 2022-0 Yes 1mg Take 1 [facility] rs 1 mg tablet 1-05 tablet by ity of 00:00: mouth [place] 00 every Medical morning Branch and evening. Indication s: reports kidney Dr Rx, ~2 mths ago arformotero 2022-0 Yes [id number] 15ug Use 2 mL [facility] L 15 mcg/2 1-05 as ity of mL 00:00: directed [place] nebulizer 00 in the Medical solution morning Branch and 2 mL in the evening. ipratropium 2022-0 Yes [id number] .5mg Inhale 2.5 [facility] 0.02 % 1-05 mL every 4 ity of nebulizer 00:00: (four) [place] solution 00 hours as Medical needed for Branch Wheezing or Shortness of Breath. albuterol Yes [id number] 2{puff} Inhale 2 [facility] 90 1-05 Puffs ity of mcg/actuati 00:00: every 6 [place] as on inhaler 00 (six) Medical hours as Branch needed for Wheezing or Shortness of Breath. albuterol Yes [id number] 2.5mg Inhale 3 [facility] 2.5 mg /3 1-05 mL every 2 ity of mL (0.083 00:00: (two) [place] %) 00 hours as Medical nebulizer needed for Bran ch solution Shortness of Breath or Wheezing. cloNIDine Yes [id number] .2mg Take 1 U nivers 0.2 mg 1-05 tablet by ity of tablet 00:00: mouth 3 [place] 00 (three) Medical times Branch daily as needed (Uncontrol led Hypertensi on). Take 1 Tab if BP > 150/90 NIFEdipine 2022-0 Yes [id number] 30mg Take 1 U nivers ER 30 mg 1-05 tablet by ity of tablet 00:00: mouth in [place] 00 the Medical morning. Branch levothyroxi 0 Yes [id number] 150ug Take 1 [facility] ne 150 mcg 1-05 tablet by ity of tablet 00:00: mouth [place] 00 every Medical morning. Branch tamsulosin 0 Yes [id number] .4mg Take 1 [facility] 0.4 mg 24 1-05 9102 capsule by ity of hr capsule 00:00: mouth in [place] as 00 the Medical morning. Branch budesonide 2022-0 Yes [id number] .5mg Inhale 2 [facility] 0.5 mg/2 mL 1-05 mL in the ity of nebulizer 00:00: morning [place] solution 00 and 2 mL Medical in the Branch evening. traZODone 0 Yes [id number] 50mg Take 1 U nivers 50 mg 1-05 tablet by ity of tablet 00:00: mouth at [place] 00 bedtime. Medical Branch doxepin 25 0 Yes [id number] 25mg Take 1 [facility] mg capsule 1-05 capsule by ity of 00:00: mouth at [place] 00 bedtime. Medical Branch glipiZIDE Yes [id number] 2.5mg Take 1 U nivers XL 2.5 mg 1-05 tablet by ity o f 24 hr 00:00: mouth in [place] tablet 00 the Medical morning Branch and 1 tablet in the evening. bumetanide Yes 1mg Take 1 [facility] rs 1 mg tablet 1-05 tablet by ity of 00:00: mouth [place] 00 every Medical morning Branch and evening. Indication s: reports kidney Dr Rx, ~2 mths ago arformotero Yes [id number] 15ug Use 2 mL [facility] L 15 mcg/2 1-05 as ity of mL 00:00: directed [place] nebulizer 00 in the Medical solution morning Branch and 2 mL in the evening. ipratropium Yes [id number] .5mg Inhale 2.5 [facility] 0.02 % 1-05 mL every 4 ity of nebulizer 00:00: (four) [place] solution 00 hours as Medical needed for Branch Wheezing or Shortness of Breath. albuterol Yes [id number] 2{puff} Inhale 2 [facility] 90 1-05 Puffs ity of mcg/actuati 00:00: every 6 [place] as on inhaler 00 (six) Medical hours as Branch needed for Wheezing or Shortness of Breath. albuterol Yes [id number] 2.5mg Inhale 3 [facility] 2.5 mg /3 1-05 mL every 2 ity of mL (0.083 00:00: (two) [place] %) 00 hours as Medical nebulizer needed for Bran ch solution Shortness of Breath or Wheezing. cloNIDine Yes [id number] .2mg Take 1 U nivers 0.2 mg 1-05 tablet by ity of tablet 00:00: mouth 3 [place] 00 (three) Medical times Branch daily as needed (Uncontrol led Hypertensi on). Take 1 Tab if BP > 150/90 NIFEdipine Yes [id number] 30mg Take 1 U nivers ER 30 mg 1-05 tablet by ity of tablet 00:00: mouth in [place] 00 the Medical morning. Branch ergocalcife 2021-03 Yes [id number] Take 1 [facility] rol, 2-14 capsule by ity of vitamin d2, 00:00: mouth [place] 1,250 mcg 00 weekly. Medical (50,000 Branch unit) capsule doxepin 25 2021-03 Yes [id number] 25mg Take 1 [facility] mg capsule 2-14 capsule by ity of 00:00: mouth at [place] 00 bedtime. Medical Branch hydrOXYzine 2021-03 Yes [id number] 25mg Take 1 [facility] 25 mg 2-14 capsule by ity of capsule 00:00: mouth 3 [place] 00 (three) Medical times Branch daily as needed for Itching. ergocalcife 2021-03 Yes [id number] Take 1 [facility] rol, 2-14 capsule by ity of vitamin d2, 00:00: mouth [place] 1,250 mcg 00 weekly. Medical (50,000 Branch unit) capsule doxepin 25 2021-03 Yes [id number] 25mg Take 1 [facility] mg capsule 2-14 capsule by ity of 00:00: mouth at [place] 00 bedtime. Medical Branch hydrOXYzine 2021-03 Yes [id number] 25mg Take 1 [facility] 25 mg 2-14 capsule by ity of capsule 00:00: mouth 3 [place] 00 (three) Medical times Branch daily as needed for Itching. ergocalcife 2021-03 Yes [id number] Take 1 [facility] rol, 2-14 capsule by ity of vitamin d2, 00:00: mouth [place] 1,250 mcg 00 weekly. Medical (50,000 Branch unit) capsule doxepin 25 2021-03 Yes [id number] 25mg Take 1 [facility] mg capsule 2-14 capsule by ity of 00:00: mouth at [place] 00 bedtime. Medical Branch hydrOXYzine 2021-03 Yes [id number] 25mg Take 1 [facility] 25 mg 2-14 capsule by ity of capsule 00:00: mouth 3 [place] 00 (three) Medical times Branch daily as needed for Itching. ergocalcife 2021-03 Yes [id number] Take 1 [facility] rol, 2-14 capsule by ity of vitamin d2, 00:00: mouth [place] 1,250 mcg 00 weekly. Medical (50,000 Branch unit) capsule doxepin 25 2021-03 Yes [id number] 25mg Take 1 [facility] mg capsule 2-14 capsule by ity of 00:00: mouth at [place] 00 bedtime. Medical Branch hydrOXYzine 2021-03 Yes [id number] 25mg Take 1 [facility] 25 mg 2-14 capsule by ity of capsule 00:00: mouth 3 [place] 00 (three) Medical times Branch daily as needed for Itching. ergocalcife 2021-03 Yes [id number] Take 1 [facility] rol, 2-14 capsule by ity of vitamin d2, 00:00: mouth [place] 1,250 mcg 00 weekly. Medical (50,000 Branch unit) capsule hydrOXYzine 2021-03 Yes [id number] 25mg Take 1 [facility] 25 mg 2-14 capsule by ity of capsule 00:00: mouth 3 [place] 00 (three) Medical times Branch daily as needed for Itching. ergocalcife 2021-03 Yes [id number] Take 1 [facility] rol, 2-14 capsule by ity of vitamin d2, 00:00: mouth [place] 1,250 mcg 00 weekly. Medical (50,000 Branch unit) capsule hydrOXYzine 2021-03 Yes [id number] 25mg Take 1 [facility] 25 mg 2-14 capsule by ity of capsule 00:00: mouth 3 [place] 00 (three) Medical times Branch daily as needed for Itching. ergocalcife 2021-03 Yes [id number] Take 1 [facility] rol, 2-14 capsule by ity of vitamin d2, 00:00: mouth [place] 1,250 mcg 00 weekly. Medical (50,000 Branch unit) capsule hydrOXYzine 2021-03 Yes [id number] 25mg Take 1 [facility] 25 mg 2-14 capsule by ity of capsule 00:00: mouth 3 [place] 00 (three) Medical times Branch daily as needed for Itching. ergocalcife 2021-03 Yes [id number] Take 1 [facility] rol, 2-14 capsule by ity of vitamin d2, 00:00: mouth [place] 1,250 mcg 00 weekly. Medical (50,000 Branch unit) capsule hydrOXYzine 2021-03 Yes [id number] 25mg Take 1 [facility] 25 mg 2-14 capsule by ity of capsule 00:00: mouth 3 [place] 00 (three) Medical times Branch daily as needed for Itching. ergocalcife 2021-03 Yes [id number] Take 1 [facility] rol, 2-14 capsule by ity of vitamin d2, 00:00: mouth [place] 1,250 mcg 00 weekly. Medical (50,000 Branch unit) capsule hydrOXYzine 2021-03 Yes [id number] 25mg Take 1 [facility] 25 mg 2-14 capsule by ity of capsule 00:00: mouth 3 [place] 00 (three) Medical times Branch daily as needed for Itching. ergocalcife 2021-03 Yes [id number] Take 1 [facility] rol, 2-14 capsule by ity of vitamin d2, 00:00: mouth [place] 1,250 mcg 00 weekly. Medical (50,000 Branch unit) capsule hydrOXYzine 2021-03 Yes [id number] 25mg Take 1 [facility] 25 mg 2-14 capsule by ity of capsule 00:00: mouth 3 [place] 00 (three) Medical times Branch daily as needed for Itching. ergocalcife 2021-03 Yes [id number] Take 1 [facility] rol, 2-14 capsule by ity of vitamin d2, 00:00: mouth [place] 1,250 mcg 00 weekly. Medical (50,000 Branch unit) capsule hydrOXYzine 2021-03 Yes [id number] 25mg Take 1 [facility] 25 mg 2-14 capsule by ity of capsule 00:00: mouth 3 [place] 00 (three) Medical times Branch daily as needed for Itching. ergocalcife 2021-03 Yes [id number] Take 1 [facility] rol, 2-14 capsule by ity of vitamin d2, 00:00: mouth [place] 1,250 mcg 00 weekly. Medical (50,000 Branch unit) capsule hydrOXYzine 2021-03 Yes [id number] 25mg Take 1 [facility] 25 mg 2-14 capsule by ity of capsule 00:00: mouth 3 [place] 00 (three) Medical times Branch daily as needed for Itching. ergocalcife 2021-03 Yes [id number] Take 1 [facility] rol, 2-14 capsule by ity of vitamin d2, 00:00: mouth [place] 1,250 mcg 00 weekly. Medical (50,000 Branch unit) capsule hydrOXYzine 2021-03 Yes [id number] 25mg Take 1 [facility] 25 mg 2-14 capsule by ity of capsule 00:00: mouth 3 [place] 00 (three) Medical times Branch daily as needed for Itching. ergocalcife 2021-03 Yes [id number] Take 1 [facility] rol, 2-14 capsule by ity of vitamin d2, 00:00: mouth [place] 1,250 mcg 00 weekly. Medical (50,000 Branch unit) capsule hydrOXYzine 2021-03 Yes [id number] 25mg Take 1 [facility] 25 mg 2-14 capsule by ity of capsule 00:00: mouth 3 [place] 00 (three) Medical times Branch daily as needed for Itching. ergocalcife 2021-03 Yes [id number] Take 1 [facility] rol, 2-14 capsule by ity of vitamin d2, 00:00: mouth [place] 1,250 mcg 00 weekly. Medical (50,000 Branch unit) capsule hydrOXYzine 2021-03 Yes [id number] 25mg Take 1 [facility] 25 mg 2-14 capsule by ity of capsule 00:00: mouth 3 [place] 00 (three) Medical times Branch daily as needed for Itching. ergocalcife 2021-03 Yes [id number] Take 1 [facility] rol, 2-14 capsule by ity of vitamin d2, 00:00: mouth [place] 1,250 mcg 00 weekly. Medical (50,000 Branch unit) capsule hydrOXYzine 2021-03 Yes [id number] 25mg Take 1 [facility] 25 mg 2-14 capsule by ity of capsule 00:00: mouth 3 [place] 00 (three) Medical times Branch daily as needed for Itching. ergocalcife 2021-03 Yes [id number] Take 1 [facility] rol, 2-14 capsule by ity of vitamin d2, 00:00: mouth [place] 1,250 mcg 00 weekly. Medical (50,000 Branch unit) capsule hydrOXYzine 2021-03 Yes [id number] 25mg Take 1 [facility] 25 mg 2-14 capsule by ity of capsule 00:00: mouth 3 [place] 00 (three) Medical times Branch daily as needed for Itching. ergocalcife 2021-03 Yes [id number] Take 1 [facility] rol, 2-14 capsule by ity of vitamin d2, 00:00: mouth [place] 1,250 mcg 00 weekly. Medical (50,000 Branch unit) capsule hydrOXYzine 2022-1 Yes [id number] 25mg Take 1 [facility] 25 mg 2-14 capsule by ity of capsule 00:00: mouth 3 [place] 00 (three) Medical times Branch daily as needed for Itching. ergocalcife 2021-03 Yes [id number] Take 1 [facility] rol, 2-14 capsule by ity of vitamin d2, 00:00: mouth [place] 1,250 mcg 00 weekly. Medical (50,000 Branch unit) capsule hydrOXYzine 2021-03 Yes [id number] 25mg Take 1 [facility] 25 mg 2-14 capsule by ity of capsule 00:00: mouth 3 [place] 00 (three) Medical times Branch daily as needed for Itching. ergocalcife 2021-03 Yes [id number] Take 1 [facility] rol, 2-14 capsule by ity of vitamin d2, 00:00: mouth [place] 1,250 mcg 00 weekly. Medical (50,000 Branch unit) capsule hydrOXYzine 2021-03 Yes [id number] 25mg Take 1 [facility] 25 mg 2-14 capsule by ity of capsule 00:00: mouth 3 [place] 00 (three) Medical times Branch daily as needed for Itching. ergocalcife 2021-03 Yes [id number] Take 1 [facility] rol, 2-14 capsule by ity of vitamin d2, 00:00: mouth [place] 1,250 mcg 00 weekly. Medical (50,000 Branch unit) capsule hydrOXYzine 2021-03 Yes [id number] 25mg Take 1 [facility] 25 mg 2-14 capsule by ity of capsule 00:00: mouth 3 [place] 00 (three) Medical times Branch daily as needed for Itching. ergocalcife 2021-03 Yes [id number] Take 1 [facility] rol, 2-14 capsule by ity of vitamin d2, 00:00: mouth [place] 1,250 mcg 00 weekly. Medical (50,000 Branch unit) capsule hydrOXYzine 2021-03 Yes [id number] 25mg Take 1 [facility] 25 mg 2-14 capsule by ity of capsule 00:00: mouth 3 [place] 00 (three) Medical times Branch daily as needed for Itching. ergocalcife 2021-03 Yes [id number] Take 1 [facility] rol, 2-14 capsule by ity of vitamin d2, 00:00: mouth [place] 1,250 mcg 00 weekly. Medical (50,000 Branch unit) capsule hydrOXYzine 2021-03 Yes [id number] 25mg Take 1 [facility] 25 mg 2-14 capsule by ity of capsule 00:00: mouth 3 [place] 00 (three) Medical times Branch daily as needed for Itching. ergocalcife 2021-03 Yes [id number] Take 1 [facility] rol, 2-14 capsule by ity of vitamin d2, 00:00: mouth [place] 1,250 mcg 00 weekly. Medical (50,000 Branch unit) capsule hydrOXYzine 2021-03 Yes [id number] 25mg Take 1 [facility] 25 mg 2-14 capsule by ity of capsule 00:00: mouth 3 [place] 00 (three) Medical times Branch daily as needed for Itching. ergocalcife 2021-03 Yes [id number] Take 1 [facility] rol, 2-14 capsule by ity of vitamin d2, 00:00: mouth [place] 1,250 mcg 00 weekly. Medical (50,000 Branch unit) capsule hydrOXYzine 2021-03 Yes [id number] 25mg Take 1 [facility] 25 mg 2-14 capsule by ity of capsule 00:00: mouth 3 [place] 00 (three) Medical times Branch daily as needed for Itching. ergocalcife 2021-03 Yes [id number] Take 1 [facility] rol, 2-14 capsule by ity of vitamin d2, 00:00: mouth [place] 1,250 mcg 00 weekly. Medical (50,000 Branch unit) capsule hydrOXYzine 2021-03 Yes [id number] 25mg Take 1 [facility] 25 mg 2-14 capsule by ity of capsule 00:00: mouth 3 [place] 00 (three) Medical times Branch daily as needed for Itching. ergocalcife 2021-03 Yes [id number] Take 1 [facility] rol, 2-14 capsule by ity of vitamin d2, 00:00: mouth [place] 1,250 mcg 00 weekly. Medical (50,000 Branch unit) capsule hydrOXYzine 2021-03 Yes [id number] 25mg Take 1 [facility] 25 mg 2-14 capsule by ity of capsule 00:00: mouth 3 [place] 00 (three) Medical times Branch daily as needed for Itching. ergocalcife 2021-03 Yes [id number] Take 1 [facility] rol, 2-14 capsule by ity of vitamin d2, 00:00: mouth [place] 1,250 mcg 00 weekly. Medical (50,000 Branch unit) capsule hydrOXYzine 2021-03 Yes [id number] 25mg Take 1 [facility] 25 mg 2-14 capsule by ity of capsule 00:00: mouth 3 [place] 00 (three) Medical times Branch daily as needed for Itching. ergocalcife 2021-03 Yes [id number] Take 1 [facility] rol, 2-14 capsule by ity of vitamin d2, 00:00: mouth [place] 1,250 mcg 00 weekly. Medical (50,000 Branch unit) capsule hydrOXYzine 2021-03 Yes [id number] 25mg Take 1 [facility] 25 mg 2-14 capsule by ity of capsule 00:00: mouth 3 [place] 00 (three) Medical times Branch daily as needed for Itching. ergocalcife 2021-03 Yes [id number] Take 1 [facility] rol, 2-14 capsule by ity of vitamin d2, 00:00: mouth [place] 1,250 mcg 00 weekly. Medical (50,000 Branch unit) capsule hydrOXYzine 2021-03 Yes [id number] 25mg Take 1 [facility] 25 mg 2-14 capsule by ity of capsule 00:00: mouth 3 00 (three) Medical times Branch daily as needed for Itching. hydrOXYzine 2021-03 Yes [id number] 25mg Take 1 [facility] 25 mg 2-14 capsule by ity of capsule 00:00: mouth 3 00 (three) Medical times Branch daily as needed for Itching. hydrOXYzine 2021-03 Yes [id number] 25mg Take 1 [facility] 25 mg 2-14 capsule by ity of capsule 00:00: mouth 3 (three) Medical times Branch daily as needed for Itching. hydrOXYzine 2021-03 Yes [id number] 25mg Take 1 [facility] 25 mg 2-14 capsule by ity of capsule 00:00: mouth 3 [place] 00 (three) Medical times Branch daily as needed for Itching. hydrOXYzine 2021-03 Yes [id number] 25mg Take 1 [facility] 25 mg 2-14 capsule by ity of capsule 00:00: mouth 3 [place] 00 (three) Medical times Branch daily as needed for Itching. ergocalcife 2021-03 2023- No [id number] Take 1 [facility] rol, 2-14 04-03 capsule by ity of vitamin d2, 00:00: 00:00 mouth [place] 1,250 mcg 00 :00 weekly. Medical (50,000 Branch unit) capsule doxepin 2021-03- No [id number] 25mg Take 1 [facility] mg capsule 04-17 capsule by it y of 00:00: 00:00 mouth at [place] 00 :00 bedtime. Medical Branch doxepin 25 2021-03- No [id number] 25mg Take 1 [facility] mg capsule 04-17 capsule by it y of 00:00: 00:00 mouth at [place] 00 :00 bedtime. Medical Branch doxepin 25 2021-03- No [id number] 25mg Take 1 [facility] mg capsule 04-17 capsule by it y of 00:00: 00:00 mouth at [place] 00 :00 bedtime. Medical Branch doxepin 2021-03- No [id number] 25mg Take 1 [facility] mg capsule 04-17 capsule by it y of 00:00: 00:00 mouth at [place] 00 :00 bedtime. Medical Branch benzonatate 2021-03 Yes [id number] 100mg Take 1 [facility] (TESSALON 2-13 capsule by ity of PERLES) 100 00:00: mouth [place] mg capsule 00 every 8 Medica l (eight) Branch hours as needed for Cough. benzonatate 2021-03 Yes [id number] 100mg Take 1 [facility] (TESSALON 2-13 capsule by ity of PERLES) 100 00:00: mouth [place] mg capsule 00 every 8 Medica l (eight) Branch hours as needed for Cough. benzonatate 2021-03 Yes [id number] 100mg Take 1 [facility] (TESSALON 2-13 capsule by ity of PERLES) 100 00:00: mouth [place] mg capsule 00 every 8 Medica l (eight) Branch hours as needed for Cough. benzonatate 2021-03 Yes [id number] 100mg Take 1 [facility] (TESSALON 2-13 capsule by ity of PERLES) 100 00:00: mouth [place] mg capsule 00 every 8 Medica l (eight) Branch hours as needed for Cough. benzonatate 2021-03 Yes [id number] 100mg Take 1 [facility] (TESSALON 2-13 capsule by ity of PERLES) 100 00:00: mouth [place] mg capsule 00 every 8 Medica l (eight) Branch hours as needed for Cough. benzonatate 2021-03 Yes [id number] 100mg Take 1 [facility] (TESSALON 2-13 capsule by itrohan of BRAD) 100 00:00: mouth [place] mg capsule 00 every 8 Medica l (eight) Branch hours as needed for Cough. benzonatate 2021-03 Yes [id number] 100mg Take 1 [facility] (TESSALON 2-13 capsule by itrohan of BRAD) 100 00:00: mouth [place] mg capsule 00 every 8 Medica l (eight) Branch hours as needed for Cough. benzonatate 2021-03 Yes [id number] 100mg Take 1 [facility] (TESSALON 2-13 capsule by ity of BRAD) 100 00:00: mouth [place] mg capsule 00 every 8 Medica l (eight) Branch hours as needed for Cough. benzonatate 2021-03- No [id number] 100mg Take 1 [facility] (TESSALON 2-13 -08 capsule by itJerel) 100 00:00: 00:00 mouth [place] mg capsule 00 :00 every 8 Medica l (eight) Branch hours as needed for Cough. benzonatate 2021-03- No [id number] 100mg Take 1 [facility] (TESSALON 2-13 -08 capsule by itrohan of BRAD) 100 00:00: 00:00 mouth [place] mg capsule 00 :00 every 8 Medica l (eight) Branch hours as needed for Cough. benzonatate 2021-03- No [id number] 100mg Take 1 [facility] (TESSALON 2-13 -08 capsule by itrohan of BRAD) 100 00:00: 00:00 mouth [place] mg capsule 00 :00 every 8 Medica l (eight) Branch hours as needed for Cough. acetaminoph 2021-03 Yes 2745 1{tbl} Take 1 Un renetta en-codeine 1-27 tablet by ity of (TYLENOL-CO 00:00: mouth [place] DEINE #3) 00 every 6 Medical 300-30 mg (six) Branch tablet hours as needed for Pain (scale 7-10). Indication s: acute pain, chronic pain acetaminoph 2021-03 Yes 2745 1{tbl} Take 1 Un renetta en-codeine 1-27 tablet by ity of (TYLENOL-CO 00:00: mouth [place] DEINE #3) 00 every 6 Medical 300-30 mg (six) Branch tablet hours as needed for Pain (scale 7-10). Indication s: acute pain, chronic pain acetaminoph 2-1 Yes 2745 1{tbl} Take 1 Un renetta en-codeine 1-27 tablet by ity of (TYLENOL-CO 00:00: mouth [place] DEINE #3) 00 every 6 Medical 300-30 mg (six) Branch tablet hours as needed for Pain (scale 7-10). Indication s: acute pain, chronic pain acetaminoph 2- Yes 2745 1{tbl} Take 1 Un renetta en-codeine 1-27 tablet by ity of (TYLENOL-CO 00:00: mouth [place] DEINE #3) 00 every 6 Medical 300-30 mg (six) Branch tablet hours as needed for Pain (scale 7-10). Indication s: acute pain, chronic pain acetaminoph 2-1 Yes 2745 1{tbl} Take 1 Un renetta en-codeine 1-27 tablet by ity of (TYLENOL-CO 00:00: mouth [place] DEINE #3) 00 every 6 Medical 300-30 mg (six) Branch tablet hours as needed for Pain (scale 7-10). Indication s: acute pain, chronic pain acetaminoph 2-1 Yes 2745 1{tbl} Take 1 Un renetta en-codeine 1-27 tablet by ity of (TYLENOL-CO 00:00: mouth [place] DEINE #3) 00 every 6 Medical 300-30 mg (six) Branch tablet hours as needed for Pain (scale 7-10). Indication s: acute pain, chronic pain acetaminoph 2-1 Yes 2745 1{tbl} Take 1 Un renetta en-codeine 1-27 tablet by ity of (TYLENOL-CO 00:00: mouth [place] DEINE #3) 00 every 6 Medical 300-30 mg (six) Branch tablet hours as needed for Pain (scale 7-10). Indication s: acute pain, chronic pain acetaminoph 2-1 Yes 2745 1{tbl} Take 1 Un renetta en-codeine 1-27 tablet by ity of (TYLENOL-CO 00:00: mouth [place] DEINE #3) 00 every 6 Medical 300-30 mg (six) Branch tablet hours as needed for Pain (scale 7-10). Indication s: acute pain, chronic pain acetaminoph 2-1 Yes 2745 1{tbl} Take 1 Un renetta en-codeine 1-27 tablet by ity of (TYLENOL-CO 00:00: mouth [place] DEINE #3) 00 every 6 Medical 300-30 mg (six) Branch tablet hours as needed for Pain (scale 7-10). Indication s: acute pain, chronic pain acetaminoph 2021-1 Yes 2745 1{tbl} Take 1 Un renetta en-codeine 1-27 tablet by ity of (TYLENOL-CO 00:00: mouth [place] DEINE #3) 00 every 6 Medical 300-30 mg (six) Branch tablet hours as needed for Pain (scale 7-10). Indication s: acute pain, chronic pain acetaminoph 2021- Yes 2745 1{tbl} Take 1 Un renetta en-codeine 1-27 tablet by ity of (TYLENOL-CO 00:00: mouth [place] DEINE #3) 00 every 6 Medical 300-30 mg (six) Branch tablet hours as needed for Pain (scale 7-10). Indication s: acute pain, chronic pain acetaminoph 2021-1 Yes 2745 1{tbl} Take 1 Un renetta en-codeine 1-27 tablet by ity of (TYLENOL-CO 00:00: mouth [place] DEINE #3) 00 every 6 Medical 300-30 mg (six) Branch tablet hours as needed for Pain (scale 7-10). Indication s: acute pain, chronic pain acetaminoph 2-1 Yes 2745 1{tbl} Take 1 Un renetta en-codeine 1-27 tablet by ity of (TYLENOL-CO 00:00: mouth [place] DEINE #3) 00 every 6 Medical 300-30 mg (six) Branch tablet hours as needed for Pain (scale 7-10). Indication s: acute pain, chronic pain acetaminoph 2-1 Yes 2745 1{tbl} Take 1 Un renetta en-codeine 1-27 tablet by ity of (TYLENOL-CO 00:00: mouth [place] DEINE #3) 00 every 6 Medical 300-30 mg (six) Branch tablet hours as needed for Pain (scale 7-10). Indication s: acute pain, chronic pain acetaminoph 2021- Yes 2745 1{tbl} Take 1 Un renetta en-codeine 1-27 tablet by ity of (TYLENOL-CO 00:00: mouth [place] DEINE #3) 00 every 6 Medical 300-30 mg (six) Branch tablet hours as needed for Pain (scale 7-10). Indication s: acute pain, chronic pain acetaminoph 2021- Yes 2745 1{tbl} Take 1 Un renetta en-codeine 1-27 tablet by ity of (TYLENOL-CO 00:00: mouth [place] DEINE #3) 00 every 6 Medical 300-30 mg (six) Branch tablet hours as needed for Pain (scale 7-10). Indication s: acute pain, chronic pain acetaminoph 2021- Yes 2745 1{tbl} Take 1 Un renetta en-codeine 1-27 tablet by ity of (TYLENOL-CO 00:00: mouth [place] DEINE #3) 00 every 6 Medical 300-30 mg (six) Branch tablet hours as needed for Pain (scale 7-10). Indication s: acute pain, chronic pain acetaminoph 2021- Yes 2745 1{tbl} Take 1 Un renetta en-codeine 1-27 tablet by ity of (TYLENOL-CO 00:00: mouth [place] DEINE #3) 00 every 6 Medical 300-30 mg (six) Branch tablet hours as needed for Pain (scale 7-10). Indication s: acute pain, chronic pain acetaminoph 2021- Yes 2745 1{tbl} Take 1 Un renetta en-codeine 1-27 tablet by ity of (TYLENOL-CO 00:00: mouth [place] DEINE #3) 00 every 6 Medical 300-30 mg (six) Branch tablet hours as needed for Pain (scale 7-10). Indication s: acute pain, chronic pain acetaminoph 2-1 Yes 2745 1{tbl} Take 1 Un renetta en-codeine 1-27 tablet by ity of (TYLENOL-CO 00:00: mouth [place] DEINE #3) 00 every 6 Medical 300-30 mg (six) Branch tablet hours as needed for Pain (scale 7-10). Indication s: acute pain, chronic pain acetaminoph 2-1 Yes 2745 1{tbl} Take 1 Un renetta en-codeine 1-27 tablet by ity of (TYLENOL-CO 00:00: mouth [place] DEINE #3) 00 every 6 Medical 300-30 mg (six) Branch tablet hours as needed for Pain (scale 7-10). Indication s: acute pain, chronic pain acetaminoph 2021- Yes 2745 1{tbl} Take 1 Un renetta en-codeine 1-27 tablet by ity of (TYLENOL-CO 00:00: mouth [place] DEINE #3) 00 every 6 Medical 300-30 mg (six) Branch tablet hours as needed for Pain (scale 7-10). Indication s: acute pain, chronic pain acetaminoph 2021- Yes 2745 1{tbl} Take 1 Un renetta en-codeine 1-27 tablet by ity of (TYLENOL-CO 00:00: mouth [place] DEINE #3) 00 every 6 Medical 300-30 mg (six) Branch tablet hours as needed for Pain (scale 7-10). Indication s: acute pain, chronic pain acetaminoph 2021- Yes 2745 1{tbl} Take 1 Un renetta en-codeine 1-27 tablet by ity of (TYLENOL-CO 00:00: mouth [place] DEINE #3) 00 every 6 Medical 300-30 mg (six) Branch tablet hours as needed for Pain (scale 7-10). Indication s: acute pain, chronic pain acetaminoph 2021- Yes 2745 1{tbl} Take 1 Un renetta en-codeine 1-27 tablet by ity of (TYLENOL-CO 00:00: mouth [place] DEINE #3) 00 every 6 Medical 300-30 mg (six) Branch tablet hours as needed for Pain (scale 7-10). Indication s: acute pain, chronic pain acetaminoph 2-1 Yes 2745 1{tbl} Take 1 Un renetta en-codeine 1-27 tablet by ity of (TYLENOL-CO 00:00: mouth [place] DEINE #3) 00 every 6 Medical 300-30 mg (six) Branch tablet hours as needed for Pain (scale 7-10). Indication s: acute pain, chronic pain acetaminoph 2021- Yes 2745 1{tbl} Take 1 Un renetta en-codeine 1-27 tablet by ity of (TYLENOL-CO 00:00: mouth [place] DEINE #3) 00 every 6 Medical 300-30 mg (six) Branch tablet hours as needed for Pain (scale 7-10). Indication s: acute pain, chronic pain acetaminoph 2- Yes 2745 1{tbl} Take 1 Un renetta en-codeine 1-27 tablet by ity of (TYLENOL-CO 00:00: mouth [place] DEINE #3) 00 every 6 Medical 300-30 mg (six) Branch tablet hours as needed for Pain (scale 7-10). Indication s: acute pain, chronic pain acetaminoph 2021- Yes 2745 1{tbl} Take 1 Un renetta en-codeine 1-27 tablet by ity of (TYLENOL-CO 00:00: mouth [place] DEINE #3) 00 every 6 Medical 300-30 mg (six) Branch tablet hours as needed for Pain (scale 7-10). Indication s: acute pain, chronic pain acetaminoph 2021- Yes 2745 1{tbl} Take 1 Un renetta en-codeine 1-27 tablet by ity of (TYLENOL-CO 00:00: mouth [place] DEINE #3) 00 every 6 Medical 300-30 mg (six) Branch tablet hours as needed for Pain (scale 7-10). Indication s: acute pain, chronic pain acetaminoph 2021-1 Yes 2745 1{tbl} Take 1 Un renetta en-codeine 1-27 tablet by ity of (TYLENOL-CO 00:00: mouth [place] DEINE #3) 00 every 6 Medical 300-30 mg (six) Branch tablet hours as needed for Pain (scale 7-10). Indication s: acute pain, chronic pain acetaminoph 2-1 Yes 2745 1{tbl} Take 1 Un renetta en-codeine 1-27 tablet by ity of (TYLENOL-CO 00:00: mouth [place] DEINE #3) 00 every 6 Medical 300-30 mg (six) Branch tablet hours as needed for Pain (scale 7-10). Indication s: acute pain, chronic pain acetaminoph 2-1 Yes 2745 1{tbl} Take 1 Un renetta en-codeine 1-27 tablet by ity of (TYLENOL-CO 00:00: mouth [place] DEINE #3) 00 every 6 Medical 300-30 mg (six) Branch tablet hours as needed for Pain (scale 7-10). Indication s: acute pain, chronic pain acetaminoph 2021- Yes 2745 1{tbl} Take 1 Un renetta en-codeine 1-27 tablet by ity of (TYLENOL-CO 00:00: mouth [place] DEINE #3) 00 every 6 Medical 300-30 mg (six) Branch tablet hours as needed for Pain (scale 7-10). Indication s: acute pain, chronic pain acetaminoph 2021- Yes 2745 1{tbl} Take 1 Un renetta en-codeine 1-27 tablet by ity of (TYLENOL-CO 00:00: mouth [place] DEINE #3) 00 every 6 Medical 300-30 mg (six) Branch tablet hours as needed for Pain (scale 7-10). Indication s: acute pain, chronic pain acetaminoph 2021- Yes 2745 1{tbl} Take 1 Un renetta en-codeine 1-27 tablet by ity of (TYLENOL-CO 00:00: mouth [place] DEINE #3) 00 every 6 Medical 300-30 mg (six) Branch tablet hours as needed for Pain (scale 7-10). Indication s: acute pain, chronic pain acetaminoph 2021- Yes 2745 1{tbl} Take 1 Un renetta en-codeine 1-27 tablet by ity of (TYLENOL-CO 00:00: mouth [place] DEINE #3) 00 every 6 Medical 300-30 mg (six) Branch tablet hours as needed for Pain (scale 7-10). Indication s: acute pain, chronic pain acetaminoph 2- Yes 2745 1{tbl} Take 1 Un renetta en-codeine 1-27 tablet by ity of (TYLENOL-CO 00:00: mouth [place] DEINE #3) 00 every 6 Medical 300-30 mg (six) Branch tablet hours as needed for Pain (scale 7-10). Indication s: acute pain, chronic pain acetaminoph 2021- Yes 2745 1{tbl} Take 1 Un renetta en-codeine 1-27 tablet by ity of (TYLENOL-CO 00:00: mouth [place] DEINE #3) 00 every 6 Medical 300-30 mg (six) Branch tablet hours as needed for Pain (scale 7-10). Indication s: acute pain, chronic pain acetaminoph 2021-03 Yes 2745 1{tbl} Take 1 Un renetta en-codeine 1-27 tablet by ity of (TYLENOL-CO 00:00: mouth [place] DEINE #3) 00 every 6 Medical 300-30 mg (six) Branch tablet hours as needed for Pain (scale 7-10). Indication s: acute pain, chronic pain acetaminoph 2021-03 Yes 2745 1{tbl} Take 1 Un renetta en-codeine 1-27 tablet by ity of (TYLENOL-CO 00:00: mouth [place] DEINE #3) 00 every 6 Medical 300-30 mg (six) Branch tablet hours as needed for Pain (scale 7-10). Indication s: acute pain, chronic pain benzonatate 2021-03 Yes [id number] 100mg Take 1 [facility] (TESSALON 1-25 capsule by ity of PERLES) 100 00:00: mouth [place] mg capsule 00 every 8 Medica l (eight) Branch hours as needed for Cough. benzonatate 2021-03 Yes [id number] 100mg Take 1 [facility] (TESSALON 1-25 capsule by ity of PERLES) 100 00:00: mouth [place] mg capsule 00 every 8 Medica l (eight) Branch hours as needed for Cough. benzonatate 2021-03 Yes [id number] 100mg Take 1 [facility] (TESSALON 1-25 capsule by ity of PERLES) 100 00:00: mouth [place] mg capsule 00 every 8 Medica l (eight) Branch hours as needed for Cough. benzonatate 2021-03 Yes [id number] 100mg Take 1 [facility] (TESSALON 1-25 capsule by ity of PERLES) 100 00:00: mouth [place] mg capsule 00 every 8 Medica l (eight) Branch hours as needed for Cough. benzonatate 2021-03 Yes [id number] 100mg Take 1 [facility] (TESSALON 1-25 capsule by ity of PERLES) 100 00:00: mouth [place] mg capsule 00 every 8 Medica l (eight) Branch hours as needed for Cough. benzonatate 2021-03- No [id number] 100mg Take 1 [facility] (TESSALON 1-25 12-12 capsule by ity of [place]) 100 00:00: 00:00 mouth [place] mg capsule 00 :00 every 8 Medica l (eight) Branch hours as needed for Cough. hydrOXYzine 2021-03 Yes [id number] 25mg Take 1 [facility] 25 mg 1-17 capsule by ity of capsule 00:00: mouth 3 [place] 00 (three) Medical times Branch daily as needed for Itching. hydrOXYzine 2021-03 Yes [id number] 25mg Take 1 [facility] 25 mg 1-17 capsule by ity of capsule 00:00: mouth 3 [place] (three) Medical times Branch daily as needed for Itching. hydrOXYzine 2021-03 Yes [id number] 25mg Take 1 [facility] 25 mg 1-17 capsule by ity of capsule 00:00: mouth 3 [place] (three) Medical times Branch daily as needed for Itching. hydrOXYzine 2021-03 Yes [id number] 25mg Take 1 [facility] 25 mg 1-17 capsule by ity of capsule 00:00: mouth 3 [place] (three) Medical times Branch daily as needed for Itching. hydrOXYzine 2021-03 Yes [id number] 25mg Take 1 [facility] 25 mg 1-17 capsule by ity of capsule 00:00: mouth 3 [place] (three) Medical times Branch daily as needed for Itching. hydrOXYzine 2021-03 Yes [id number] 25mg Take 1 [facility] 25 mg 1-17 capsule by ity of capsule 00:00: mouth 3 [place] (three) Medical times Branch daily as needed for Itching. hydrOXYzine 2021-03 Yes [id number] 25mg Take 1 [facility] 25 mg 1-17 capsule by ity of capsule 00:00: mouth 3 [place] (three) Medical times Branch daily as needed for Itching. hydrOXYzine 2021-03 Yes [id number] 25mg Take 1 [facility] 25 mg 1-17 capsule by ity of capsule 00:00: mouth 3 [place] (three) Medical times Branch daily as needed for Itching. hydrOXYzine 2021-03- No [id number] 25mg Take 1 [facility] 25 mg 1-17 12-12 capsule by ity of capsule 00:00: 00:00 mouth 3 [place] 00 :00 (three) Medical times Branch daily as needed for Itching. pravastatin 2021-03 Yes [id number] 40mg Take 1 [facility] 40 mg 1-11 tablet by ity of tablet 00:00: mouth at [place] [address] bedtime. Medical Branch pravastatin 2021-03 Yes [id number] 40mg Take 1 [facility] 40 mg 1-11 tablet by ity of tablet 00:00: mouth at [place] [address] bedtime. Medical Branch pravastatin 2021-03 Yes [id number] 40mg Take 1 [facility] 40 mg 1-11 tablet by ity of tablet 00:00: mouth at [place] [address] bedtime. Medical Branch pravastatin 2021-03 Yes [id number] 40mg Take 1 [facility] 40 mg 1-11 tablet by ity of tablet 00:00: mouth at [place] [address] bedtime. Medical Branch pravastatin 2021-03 Yes [id number] 40mg Take 1 [facility] 40 mg 1-11 tablet by ity of tablet 00:00: mouth at [place] [address] bedtime. Medical Branch pravastatin 2021-03 Yes [id number] 40mg Take 1 [facility] 40 mg 1-11 tablet by ity of tablet 00:00: mouth at [place] [address] bedtime. Medical Branch pravastatin 2021-03 Yes [id number] 40mg Take 1 [facility] 40 mg 1-11 tablet by ity of tablet 00:00: mouth at [place] [address] bedtime. Medical Branch pravastatin 2021-03 Yes [id number] 40mg Take 1 [facility] 40 mg 1-11 tablet by ity of tablet 00:00: mouth at [place] [address] bedtime. Medical Branch pravastatin 2021-03 Yes [id number] 40mg Take 1 [facility] 40 mg 1-11 tablet by ity of tablet 00:00: mouth at [place] [address] bedtime. Medical Branch pravastatin 2021-03 Yes [id number] 40mg Take 1 [facility] 40 mg 1-11 tablet by ity of tablet 00:00: mouth at [place] [address] bedtime. Medical Branch pravastatin 2021-03 Yes [id number] 40mg Take 1 [facility] 40 mg 1-11 tablet by ity of tablet 00:00: mouth at [place] [address] bedtime. Medical Branch pravastatin 2021-03 Yes [id number] 40mg Take 1 [facility] 40 mg 1-11 tablet by ity of tablet 00:00: mouth at [place] [address] bedtime. Medical Branch pravastatin 2021-03 Yes [id number] 40mg Take 1 [facility] 40 mg 1-11 tablet by ity of tablet 00:00: mouth at [place] [address] bedtime. Medical Branch pravastatin 2021-03 Yes [id number] 40mg Take 1 [facility] 40 mg 1-11 tablet by ity of tablet 00:00: mouth at [place] [address] bedtime. Medical Branch pravastatin 2021-03 Yes [id number] 40mg Take 1 [facility] 40 mg 1-11 tablet by ity of tablet 00:00: mouth at [place] [address] bedtime. Medical Branch pravastatin 2021-03 Yes [id number] 40mg Take 1 [facility] 40 mg 1-11 tablet by ity of tablet 00:00: mouth at [place] [address] bedtime. Medical Branch pravastatin 2021-03 Yes [id number] 40mg Take 1 [facility] 40 mg 1-11 tablet by ity of tablet 00:00: mouth at [place] [address] bedtime. Medical Branch pravastatin 2021-03 Yes [id number] 40mg Take 1 [facility] 40 mg 1-11 tablet by ity of tablet 00:00: mouth at [place] [address] bedtime. Medical Branch pravastatin 2021-03 Yes [id number] 40mg Take 1 [facility] 40 mg 1-11 tablet by ity of tablet 00:00: mouth at [place] [address] bedtime. Medical Branch pravastatin 2021-03 Yes [id number] 40mg Take 1 [facility] 40 mg 1-11 tablet by ity of tablet 00:00: mouth at [place] [address] bedtime. Medical Branch pravastatin 2021-03 Yes [id number] 40mg Take 1 [facility] 40 mg 1-11 tablet by ity of tablet 00:00: mouth at [place] [address] bedtime. Medical Branch pravastatin 2021-03 Yes [id number] 40mg Take 1 [facility] 40 mg 1-11 tablet by ity of tablet 00:00: mouth at [place] [address] bedtime. Medical Branch pravastatin 2021-03 Yes [id number] 40mg Take 1 [facility] 40 mg 1-11 tablet by ity of tablet 00:00: mouth at [place] [address] bedtime. Medical Branch pravastatin 2021-03 Yes [id number] 40mg Take 1 [facility] 40 mg 1-11 tablet by ity of tablet 00:00: mouth at [place] [address] bedtime. Medical Branch pravastatin 2021-03 Yes [id number] 40mg Take 1 [facility] 40 mg 1-11 tablet by ity of tablet 00:00: mouth at [place] [address] bedtime. Medical Branch pravastatin 2021-03 Yes [id number] 40mg Take 1 [facility] 40 mg 1-11 tablet by ity of tablet 00:00: mouth at [place] [address] bedtime. Medical Branch pravastatin 2021-03 Yes [id number] 40mg Take 1 [facility] 40 mg 1-11 tablet by ity of tablet 00:00: mouth at [place] [address] bedtime. Medical Branch pravastatin 2021-03 Yes [id number] 40mg Take 1 [facility] 40 mg 1-11 tablet by ity of tablet 00:00: mouth at [place] [address] bedtime. Medical Branch pravastatin 2021-03 Yes [id number] 40mg Take 1 [facility] 40 mg 1-11 tablet by ity of tablet 00:00: mouth at [place] [address] bedtime. Medical Branch pravastatin 2021-03 Yes [id number] 40mg Take 1 [facility] 40 mg 1-11 tablet by ity of tablet 00:00: mouth at [place] [address] bedtime. Medical Branch pravastatin 2021-03 Yes [id number] 40mg Take 1 [facility] 40 mg 1-11 tablet by ity of tablet 00:00: mouth at [place] [address] bedtime. Medical Branch pravastatin 2021-03 Yes [id number] 40mg Take 1 [facility] 40 mg 1-11 tablet by ity of tablet 00:00: mouth at [place] [address] bedtime. Medical Branch pravastatin 2021-03 Yes [id number] 40mg Take 1 [facility] 40 mg 1-11 tablet by ity of tablet 00:00: mouth at [place] [address] bedtime. Medical Branch pravastatin 2021-03 Yes [id number] 40mg Take 1 [facility] 40 mg 1-11 tablet by ity of tablet 00:00: mouth at [place] [address] bedtime. Medical Branch pravastatin 2021-03 Yes [id number] 40mg Take 1 [facility] 40 mg 1-11 tablet by ity of tablet 00:00: mouth at [place] [address] bedtime. Medical Branch pravastatin 2021-03 Yes [id number] 40mg Take 1 [facility] 40 mg 1-11 tablet by ity of tablet 00:00: mouth at [place] [address] bedtime. Medical Branch pravastatin 2021-03 Yes [id number] 40mg Take 1 [facility] 40 mg 1-11 tablet by ity of tablet 00:00: mouth at [place] [address] bedtime. Medical Branch pravastatin 2021-03 Yes [id number] 40mg Take 1 [facility] 40 mg 1-11 tablet by ity of tablet 00:00: mouth at [place] 00 bedtime. Medical Branch pravastatin 2021-03 Yes [id number] 40mg Take 1 [facility] 40 mg 1-11 tablet by ity of tablet 00:00: mouth at [place] 00 bedtime. Medical Branch pravastatin 2021-03 Yes [id number] 40mg Take 1 [facility] 40 mg 1-11 tablet by ity of tablet 00:00: mouth at [place] 00 bedtime. Medical Branch pravastatin 2021-03 Yes [id number] 40mg Take 1 [facility] 40 mg 1-11 tablet by ity of tablet 00:00: mouth at [place] 00 bedtime. Medical Branch pravastatin 2021-03 Yes [id number] 40mg Take 1 [facility] 40 mg 1-11 tablet by ity of tablet 00:00: mouth at [place] [address] bedtime. Medical Branch pravastatin 2021-03 Yes [id number] 40mg Take 1 [facility] 40 mg 1-11 tablet by ity of tablet 00:00: mouth at [place] [address] bedtime. Medical Branch pravastatin 2021-03 Yes [id number] 40mg Take 1 [facility] 40 mg 1-11 tablet by ity of tablet 00:00: mouth at [place] [address] bedtime. Medical Branch doxepin 2021-03 Yes [id number] 25mg Take 1 [facility] mg capsule 1-09 capsule by ity of 00:00: mouth at [place] [address] bedtime. Medical Branch doxepin 25 2021-03 Yes [id number] 25mg Take 1 [facility] mg capsule 1-09 capsule by ity of 00:00: mouth at [place] [address] bedtime. Medical Branch doxepin 2021-03 Yes [id number] 25mg Take 1 [facility] mg capsule 1-09 capsule by ity of 00:00: mouth at [place] [address] bedtime. Medical Branch doxepin 25 2021-03 Yes [id number] 25mg Take 1 [facility] mg capsule 1-09 capsule by ity of 00:00: mouth at [place] [address] bedtime. Medical Branch doxepin 25 2021-03 Yes [id number] 25mg Take 1 [facility] mg capsule 1-09 capsule by ity of 00:00: mouth at [place] [address] bedtime. Medical Branch doxepin 25 2021-03 Yes [id number] 25mg Take 1 [facility] mg capsule 1-09 capsule by ity of 00:00: mouth at [place] 00 bedtime. Medical Branch doxepin 2021-03 Yes [id number] 25mg Take 1 [facility] mg capsule 1-09 capsule by ity of 00:00: mouth at [place] 00 bedtime. Medical Branch doxepin 2021-03 Yes [id number] 25mg Take 1 [facility] mg capsule 1-09 capsule by ity of 00:00: mouth at [place] 00 bedtime. Medical Branch doxepin 2021-03 Yes [id number] 25mg Take 1 [facility] mg capsule 1-09 capsule by ity of 00:00: mouth at [place] 00 bedtime. Medical Branch doxepin 2021-03 Yes [id number] 25mg Take 1 [facility] mg capsule 1-09 capsule by ity of 00:00: mouth at [place] 00 bedtime. Medical Branch doxepin 2021-03 Yes [id number] 25mg Take 1 [facility] mg capsule 1-09 capsule by ity of 00:00: mouth at [place] 00 bedtime. Medical Branch doxepin 2021-03- No [id number] 25mg Take 1 [facility] mg capsule -09 -12 capsule by it y of 00:00: 00:00 mouth at [place] 00 :00 bedtime. Medical Branch bumetanide 2021-03 Yes 1mg Take 1 mg Un renetta 1 mg tablet 1-07 by mouth ity of 09:58: in the [place] [address] morning. Medical Indication Branch s: reports kidney Dr Rx, ~2 mths ago bumetanide 2021-03 Yes 1mg Take 1 mg Un renetta 1 mg tablet 1-07 by mouth ity of 09:58: in the [place] [address] morning. Medical Indication Branch s: reports kidney Dr Rx, ~2 mths ago bumetanide 2021-03 Yes 1mg Take 1 mg Un renetta 1 mg tablet 1-07 by mouth ity of 09:58: in the [place] [address] morning. Medical Indication Branch s: reports kidney Dr Rx, ~2 mths ago bumetanide 2021-03 Yes 1mg Take 1 mg Un renetta 1 mg tablet 1-07 by mouth ity of 09:58: in the [place] [address] morning. Medical Indication Branch s: reports kidney Dr Rx, ~2 mths ago bumetanide 2021-03 Yes 1mg Take 1 mg Un renetta 1 mg tablet 1-07 by mouth ity of 09:58: in the [place] [address] morning. Medical Indication Branch s: reports kidney Dr Rx, ~2 mths ago bumetanide 2021-03 Yes 1mg Take 1 mg Un renetta 1 mg tablet 1-07 by mouth ity of 09:58: in the [place] [address] morning. Medical Indication Branch s: reports kidney Dr Rx, ~2 mths ago bumetanide 2021-03 Yes 1mg Take 1 mg Un renetta 1 mg tablet 1-07 by mouth ity of 09:58: in the [place] [address] morning. Medical Indication Branch s: reports kidney Dr Rx, ~2 mths ago bumetanide 2021-03 Yes 1mg Take 1 mg Un renetta 1 mg tablet 1-07 by mouth ity of 09:58: in the [place] [address] morning. Medical Indication Branch s: reports kidney Dr Rx, ~2 mths ago bumetanide 2021-03 Yes 1mg Take 1 mg Un renetta 1 mg tablet 1-07 by mouth ity of 09:58: in the [place] [address] morning. Medical Indication Branch s: reports kidney Dr Rx, ~2 mths ago bumetanide 2021-03 Yes 1mg Take 1 mg Un renetta 1 mg tablet 1-07 by mouth ity of 09:58: in the [place] [address] morning. Medical Indication Branch s: reports kidney Dr Rx, ~2 mths ago bumetanide 2021-03 Yes 1mg Take 1 mg Un renetta 1 mg tablet 1-07 by mouth ity of 09:58: in the [place] [address] morning. Medical Indication Branch s: reports kidney Dr Rx, ~2 mths ago bumetanide 2021-03 Yes 1mg Take 1 mg Un renetta 1 mg tablet 1-07 by mouth ity of 09:58: in the [place] [address] morning. Medical Indication Branch s: reports kidney Dr Rx, ~2 mths ago bumetanide 2021-03 Yes 1mg Take 1 mg Un renetta 1 mg tablet 1-07 by mouth ity of 09:58: in the [place] [address] morning. Medical Indication Branch s: reports kidney Dr Rx, ~2 mths ago bumetanide 2021-03 Yes 1mg Take 1 mg Un renetta 1 mg tablet 1-07 by mouth ity of 09:58: in the [place] [address] morning. Medical Indication Branch s: reports kidney Dr Rx, ~2 mths ago bumetanide 2021-03 Yes 1mg Take 1 mg Un renetta 1 mg tablet 1-07 by mouth ity of 09:58: in the [place] [address] morning. Medical Indication Branch s: reports kidney Dr Rx, ~2 mths ago bumetanide 2021-03 Yes 1mg Take 1 mg Un renetta 1 mg tablet 1-07 by mouth ity of 09:58: in the [place] [address] morning. Medical Indication Branch s: reports kidney Dr Rx, ~2 mths ago bumetanide 2021-03 Yes 1mg Take 1 mg Un renetta 1 mg tablet 1-07 by mouth ity of 09:58: in the [place] [address] morning. Medical Indication Branch s: reports kidney Dr Rx, ~2 mths ago bumetanide 2021-03 Yes 1mg Take 1 mg Un renetta 1 mg tablet 1-07 by mouth ity of 09:58: in the [place] [address] morning. Medical Indication Branch s: reports kidney Dr Rx, ~2 mths ago bumetanide 2021-03 Yes 1mg Take 1 mg Un renetta 1 mg tablet 1-07 by mouth ity of 09:58: in the [place] [address] morning. Medical Indication Branch s: reports kidney Dr Rx, ~2 mths ago baclofen 2021-03 Yes [id number] 10mg Take 1 [facility] mg tablet 1-02 tablet by ity o f 00:00: mouth 3 [place] 00 (three) Medical times Branch daily as needed for Pain (scale 7-10). baclofen 10 2021-03 Yes [id number] 10mg Take 1 [facility] mg tablet 1-02 tablet by ity o f 00:00: mouth 3 [place] 00 (three) Medical times Branch daily as needed for Pain (scale 7-10). benzonatate 2021-03 Yes [id number] 100mg Take 1 [facility] (TESSALON 1-02 capsule by ity of BRAD) 100 00:00: mouth [place] mg capsule 00 every 8 Medica l (eight) Branch hours as needed for Cough. baclofen 10 2021-03 Yes [id number] 10mg Take 1 [facility] mg tablet 1-02 tablet by ity o f 00:00: mouth 3 [place] 00 (three) Medical times Branch daily as needed for Pain (scale 7-10). benzonatate 2021-03 Yes [id number] 100mg Take 1 [facility] (TESSALON 1-02 capsule by ity of PERLES) 100 00:00: mouth [place] mg capsule 00 every 8 Medica l (eight) Branch hours as needed for Cough. baclofen 2021-03 Yes [id number] 10mg Take 1 [facility] mg tablet 1-02 tablet by ity o f 00:00: mouth 3 [place] 00 (three) Medical times Branch daily as needed for Pain (scale 7-10). benzonatate 2021-03 Yes [id number] 100mg Take 1 [facility] (TESSALON 1-02 capsule by ity of PERLES) 100 00:00: mouth [place] mg capsule 00 every 8 Medica l (eight) Branch hours as needed for Cough. baclofen 2021-03 Yes [id number] 10mg Take 1 [facility] mg tablet 1-02 tablet by ity o f 00:00: mouth 3 [place] 00 (three) Medical times Branch daily as needed for Pain (scale 7-10). benzonatate 2021-03 Yes [id number] 100mg Take 1 [facility] (TESSALON 1-02 capsule by ity of PERLES) 100 00:00: mouth [place] mg capsule 00 every 8 Medica l (eight) Branch hours as needed for Cough. baclofen 2021-03 Yes [id number] 10mg Take 1 [facility] mg tablet 1-02 tablet by ity o f 00:00: mouth 3 [place] 00 (three) Medical times Branch daily as needed for Pain (scale 7-10). benzonatate 2021-03 Yes [id number] 100mg Take 1 [facility] (TESSALON 1-02 capsule by ity of PERLES) 100 00:00: mouth [place] mg capsule 00 every 8 Medica l (eight) Branch hours as needed for Cough. baclofen 2021-03 Yes [id number] 10mg Take 1 [facility] mg tablet 1-02 tablet by ity o f 00:00: mouth 3 [place] 00 (three) Medical times Branch daily as needed for Pain (scale 7-10). benzonatate 2021-03 Yes [id number] 100mg Take 1 [facility] (TESSALON 1-02 capsule by ity of PERLES) 100 00:00: mouth [place] mg capsule 00 every 8 Medica l (eight) Branch hours as needed for Cough. baclofen 2021-03 Yes [id number] 10mg Take 1 [facility] mg tablet 1-02 tablet by ity o f 00:00: mouth 3 [place] 00 (three) Medical times Branch daily as needed for Pain (scale 7-10). benzonatate 2021-03 Yes [id number] 100mg Take 1 [facility] (TESSALON 1-02 capsule by ity lon [place]) 100 00:00: mouth [place] mg capsule 00 every 8 Medica l (eight) Branch hours as needed for Cough. baclofen 2021-03 Yes [id number] 10mg Take 1 [facility] mg tablet 1-02 tablet by ity o f 00:00: mouth 3 [place] 00 (three) Medical times Branch daily as needed for Pain (scale 7-10). baclofen 2021-03 Yes [id number] 10mg Take 1 [facility] mg tablet 1-02 tablet by ity o f 00:00: mouth 3 [place] 00 (three) Medical times Branch daily as needed for Pain (scale 7-10). baclofen 2021-03 Yes [id number] 10mg Take 1 [facility] mg tablet 1-02 tablet by ity o f 00:00: mouth 3 [place] 00 (three) Medical times Branch daily as needed for Pain (scale 7-10). baclofen 2021-03 Yes [id number] 10mg Take 1 [facility] mg tablet 1-02 tablet by ity o f 00:00: mouth 3 [place] 00 (three) Medical times Branch daily as needed for Pain (scale 7-10). baclofen 2021-03 Yes [id number] 10mg Take 1 [facility] mg tablet 1-02 tablet by ity o f 00:00: mouth 3 [place] 00 (three) Medical times Branch daily as needed for Pain (scale 7-10). baclofen 2021-03 Yes [id number] 10mg Take 1 [facility] mg tablet 1-02 tablet by ity o f 00:00: mouth 3 [place] 00 (three) Medical times Branch daily as needed for Pain (scale 7-10). baclofen 2021-03 Yes [id number] 10mg Take 1 [facility] mg tablet 1-02 tablet by ity o f 00:00: mouth 3 [place] 00 (three) Medical times Branch daily as needed for Pain (scale 7-10). baclofen 2021-03 Yes [id number] 10mg Take 1 [facility] mg tablet 1-02 tablet by ity o f 00:00: mouth 3 (three) Medical times Branch daily as needed for Pain (scale 7-10). baclofen 2021-03 Yes [id number] 10mg Take 1 [facility] mg tablet 1-02 tablet by ity o f 00:00: mouth 3 (three) Medical times Branch daily as needed for Pain (scale 7-10). baclofen 2021-03 Yes [id number] 10mg Take 1 [facility] mg tablet 1-02 tablet by ity o f 00:00: mouth 3 (three) Medical times Branch daily as needed for Pain (scale 7-10). baclofen 2021-03 Yes [id number] 10mg Take 1 [facility] mg tablet 1-02 tablet by ity o f 00:00: mouth 3 (three) Medical times Branch daily as needed for Pain (scale 7-10). baclofen 2021-03 Yes [id number] 10mg Take 1 [facility] mg tablet 1-02 tablet by ity o f 00:00: mouth (three) Medical times Branch daily as needed for Pain (scale 7-10). baclofen 2021-03 Yes [id number] 10mg Take 1 [facility] mg tablet 1-02 tablet by ity o f 00:00: mouth (three) Medical times Branch daily as needed for Pain (scale 7-10). baclofen 2021-03 Yes [id number] 10mg Take 1 [facility] mg tablet 1-02 tablet by ity o f 00:00: mouth 3 (three) Medical times Branch daily as needed for Pain (scale 7-10). baclofen 2021-03 Yes [id number] 10mg Take 1 [facility] mg tablet 1-02 tablet by ity o f 00:00: mouth 3 (three) Medical times Branch daily as needed for Pain (scale 7-10). baclofen 2021-03 Yes [id number] 10mg Take 1 [facility] mg tablet 1-02 tablet by ity o f 00:00: mouth 3 (three) Medical times Branch daily as needed for Pain (scale 7-10). baclofen 2021-03 Yes [id number] 10mg Take 1 [facility] mg tablet 1-02 tablet by ity o f 00:00: mouth 3 00 (three) Medical times Branch daily as needed for Pain (scale 7-10). baclofen 2021-03 Yes [id number] 10mg Take 1 [facility] mg tablet 1-02 tablet by [facility] o f 00:00: mouth 3 [place] 00 (three) Medical times Branch daily as needed for Pain (scale 7-10). baclofen 2021-03 Yes [id number] 10mg Take 1 [facility] mg tablet 1-02 tablet by [facility] o f 00:00: mouth 3 [place] 00 (three) Medical times Branch daily as needed for Pain (scale 7-10). baclofen 2021-03 Yes [id number] 10mg Take 1 [facility] mg tablet 1-02 tablet by [facility] o f 00:00: mouth 3 [place] 00 (three) Medical times Branch daily as needed for Pain (scale 7-10). baclofen 2021-03 Yes [id number] 10mg Take 1 [facility] mg tablet 1-02 tablet by [facility] o f 00:00: mouth 3 [place] 00 (three) Medical times Branch daily as needed for Pain (scale 7-10). baclofen 2021-03 Yes [id number] 10mg Take 1 [facility] mg tablet 1-02 tablet by [facility] o f 00:00: mouth 3 00 (three) Medical times Branch daily as needed for Pain (scale 7-10). baclofen 2021-03 Yes [id number] 10mg Take 1 [facility] mg tablet 1-02 tablet by [facility] o f 00:00: mouth 3 [place] 00 (three) Medical times Branch daily as needed for Pain (scale 7-10). baclofen 2021-03 Yes [id number] 10mg Take 1 [facility] mg tablet 1-02 tablet by [facility] o f 00:00: mouth 3 00 (three) Medical times Branch daily as needed for Pain (scale 7-10). baclofen 2021-03 Yes [id number] 10mg Take 1 [facility] mg tablet 1-02 tablet by [facility] o f 00:00: mouth 3 [place] 00 (three) Medical times Branch daily as needed for Pain (scale 7-10). baclofen 2021-03 Yes [id number] 10mg Take 1 [facility] mg tablet 1-02 tablet by [facility] o f 00:00: mouth 3 [place] 00 (three) Medical times Branch daily as needed for Pain (scale 7-10). baclofen 2021-03 Yes [id number] 10mg Take 1 [facility] mg tablet 1-02 tablet by [facility] o f 00:00: mouth 3 [place] 00 (three) Medical times Branch daily as needed for Pain (scale 7-10). baclofen 2021-03 Yes [id number] 10mg Take 1 [facility] mg tablet 1-02 tablet by [facility] o f 00:00: mouth 3 00 (three) Medical times Branch daily as needed for Pain (scale 7-10). baclofen 2021-03 Yes [id number] 10mg Take 1 [facility] mg tablet 1-02 tablet by [facility] o f 00:00: mouth 3 (three) Medical times Branch daily as needed for Pain (scale 7-10). baclofen 2021-03 Yes [id number] 10mg Take 1 [facility] mg tablet 1-02 tablet by [facility] o f 00:00: mouth 3 (three) Medical times Branch daily as needed for Pain (scale 7-10). baclofen 2021-03 Yes [id number] 10mg Take 1 [facility] mg tablet 1-02 tablet by [facility] o f 00:00: mouth (three) Medical times Branch daily as needed for Pain (scale 7-10). baclofen 2021-03 Yes [id number] 10mg Take 1 [facility] mg tablet 1-02 tablet by [facility] o f 00:00: mouth 3 (three) Medical times Branch daily as needed for Pain (scale 7-10). baclofen 2021-03 Yes [id number] 10mg Take 1 [facility] mg tablet 1-02 tablet by [facility] o f 00:00: mouth 3 (three) Medical times Branch daily as needed for Pain (scale 7-10). baclofen 2021-03 Yes [id number] 10mg Take 1 [facility] mg tablet 1-02 tablet by [facility] o f 00:00: mouth 3 (three) Medical times Branch daily as needed for Pain (scale 7-10). baclofen 2021-03 Yes [id number] 10mg Take 1 [facility] mg tablet 1-02 tablet by [facility] o f 00:00: mouth 3 (three) Medical times Branch daily as needed for Pain (scale 7-10). baclofen 2021-03 Yes [id number] 10mg Take 1 [facility] mg tablet 1-02 tablet by [facility] o f 00:00: mouth 3 (three) Medical times Branch daily as needed for Pain (scale 7-10). baclofen 2021-03 Yes [id number] 10mg Take 1 [facility] mg tablet 1-02 tablet by [facility] o f 00:00: mouth 3 00 (three) Medical times Branch daily as needed for Pain (scale 7-10). baclofen 2021-03 Yes [id number] 10mg Take 1 [facility] mg tablet 1-02 tablet by [facility] o f 00:00: mouth 3 00 (three) Medical times Branch daily as needed for Pain (scale 7-10). baclofen 2021-03 Yes [id number] 10mg Take 1 [facility] mg tablet 1-02 tablet by [facility] o f 00:00: mouth 3 00 (three) Medical times Branch daily as needed for Pain (scale 7-10). baclofen 2021-03 Yes [id number] 10mg Take 1 [facility] mg tablet 1-02 tablet by [facility] o f 00:00: mouth 3 00 (three) Medical times Branch daily as needed for Pain (scale 7-10). baclofen 2021-03 Yes [id number] 10mg Take 1 [facility] mg tablet 1-02 tablet by [facility] o f 00:00: mouth 3 00 (three) Medical times Branch daily as needed for Pain (scale 7-10). baclofen 2021-03- No [id number] 10mg Take 1 [facility] mg tablet 1-02 04-19 tablet by ity of 00:00: 00:00 mouth 3 [place] 00 :00 (three) Medical times Branch daily as needed for Pain (scale 7-10). benzonatate 2021-03- No [id number] 100mg Take 1 [facility] (TESSALON -02 11-23 capsule by [facility] of BR[facility]) 100 00:00: 00:[place] mg capsule 00 :00 every 8 Medica l (eight) Branch hours as needed for Cough. acetaminoph 2021-03 Yes 2745 1{tbl} Take 1 Un renetta en-codeine 0-24 tablet by ity of (TYLENOL-CO 00:00: mouth [place] DEINE #3) 00 every 6 Medical 300-30 mg (six) Branch tablet hours as needed for Pain (scale 7-10). Indication s: acute pain, chronic pain acetaminoph 2021-03 Yes 2745 1{tbl} Take 1 Un renetta en-codeine 0-24 tablet by ity of (TYLENOL-CO 00:00: mouth [place] DEINE #3) 00 every 6 Medical 300-30 mg (six) Branch tablet hours as needed for Pain (scale 7-10). Indication s: acute pain, chronic pain acetaminoph 2021-03 Yes 2745 1{tbl} Take 1 Un renetta en-codeine 0-24 tablet by ity of (TYLENOL-CO 00:00: mouth [place] DEINE #3) 00 every 6 Medical 300-30 mg (six) Branch tablet hours as needed for Pain (scale 7-10). Indication s: acute pain, chronic pain acetaminoph 2021-03 Yes 2745 1{tbl} Take 1 Un renetta en-codeine 0-24 tablet by ity of (TYLENOL-CO 00:00: mouth [place] DEINE #3) 00 every 6 Medical 300-30 mg (six) Branch tablet hours as needed for Pain (scale 7-10). Indication s: acute pain, chronic pain acetaminoph 2021-03 Yes 2745 1{tbl} Take 1 Un renet[facility] en-codeine 0-24 tablet by ity of (TYLENOL-CO 00:00: mouth [place] DEINE #3) 00 every 6 Medical 300-30 mg (six) Branch tablet hours as needed for Pain (scale 7-10). Indication s: acute pain, chronic pain acetaminoph 2021- Yes 2745 1{tbl} Take 1 Un renetta en-codeine 0-24 tablet by ity of (TYLENOL-CO 00:00: mouth [place] DEINE #3) 00 every 6 Medical 300-30 mg (six) Branch tablet hours as needed for Pain (scale 7-10). Indication s: acute pain, chronic pain acetaminoph 2021- Yes 2745 1{tbl} Take 1 Un renetta en-codeine 0-24 tablet by ity of (TYLENOL-CO 00:00: mouth [place] DEINE #3) 00 every 6 Medical 300-30 mg (six) Branch tablet hours as needed for Pain (scale 7-10). Indication s: acute pain, chronic pain acetaminoph 2021- Yes 2745 1{tbl} Take 1 Un renetta en-codeine 0-24 tablet by ity of (TYLENOL-CO 00:00: mouth [place] DEINE #3) 00 every 6 Medical 300-30 mg (six) Branch tablet hours as needed for Pain (scale 7-10). Indication s: acute pain, chronic pain acetaminoph 2021-03 Yes 2745 1{tbl} Take 1 Un renetta en-codeine 0-24 tablet by ity of (TYLENOL-CO 00:00: mouth [place] DEINE #3) 00 every 6 Medical 300-30 mg (six) Branch tablet hours as needed for Pain (scale 7-10). Indication s: acute pain, chronic pain acetaminoph 2021-03 Yes 2745 1{tbl} Take 1 Un renetta en-codeine 0-24 tablet by ity of (TYLENOL-CO 00:00: mouth [place] DEINE #3) 00 every 6 Medical 300-30 mg (six) Branch tablet hours as needed for Pain (scale 7-10). Indication s: acute pain, chronic pain acetaminoph 2021-03 Yes 2745 1{tbl} Take 1 Un renetta en-codeine 0-24 tablet by ity of (TYLENOL-CO 00:00: mouth [place] DEINE #3) 00 every 6 Medical 300-30 mg (six) Branch tablet hours as needed for Pain (scale 7-10). Indication s: acute pain, chronic pain acetaminoph 2021-03 Yes 2745 1{tbl} Take 1 Un renetta en-codeine 0-24 tablet by ity of (TYLENOL-CO 00:00: mouth [place] DEINE #3) 00 every 6 Medical 300-30 mg (six) Branch tablet hours as needed for Pain (scale 7-10). Indication s: acute pain, chronic pain acetaminoph 2021-03- No 2745 1{tbl} Take 1 [facility] en-codeine 0-24 11-23 tablet by [facility] of (TYLENOL-CO 00:00: 00:00 mouth [place] DEINE #3) 00 :00 every 6 Medical 300-30 mg (six) Branch tablet hours as needed for Pain (scale 7-10). Indication s: acute pain, chronic pain albuterol Yes [id number] 2.5mg Inhale 3 [facility] 2.5 mg /3 9-29 mL every 2 ity of mL (0.083 00:00: (two) [place] %) 00 hours as Medical nebulizer needed for Bran ch solution Shortness of Breath or Wheezing. ipratropium 2022-0 Yes [id number] .5mg Inhale 2.5 [facility] 0.02 % 9-29 mL every 4 ity of nebulizer 00:00: (four) [place] solution 00 hours as Medical needed for Branch Wheezing or Shortness of Breath. arformotero 2022-0 Yes 15ug Use 2 mL Un renetta L 15 mcg/2 9-29 as ity of mL 00:00: directed [place] nebulizer 00 in the Medical solution morning Branch and 2 mL in the evening. budesonide 2022-0 Yes .25mg Inhale 2 Un [facility]net[facility] 0.25 mg/2 9-29 mL in the ity o f mL 00:00: morning [place] nebulizer 00 and 2 mL Medica l solution in the Branch evening. albuterol 2022-0 Yes [id number] 2.5mg Inhale 3 [facility] 2.5 mg /3 9-29 mL every 2 ity of mL (0.083 00:00: (two) [place] %) 00 hours as Medical nebulizer needed for Bran ch solution Shortness of Breath or Wheezing. ipratropium 2-0 Yes [id number] .5mg Inhale 2.5 [facility] 0.02 % 9-29 mL every 4 ity of nebulizer 00:00: (four) [place] solution 00 hours as Medical needed for Branch Wheezing or Shortness of Breath. arformotero 2022-0 Yes 15ug Use 2 mL Un renetta L 15 mcg/2 9-29 as ity of mL 00:00: directed [place] nebulizer 00 in the Medical solution morning Branch and 2 mL in the evening. budesonide 2022-0 Yes .25mg Inhale 2 Un renet[facility] 0.25 mg/2 9-29 mL in the ity o f mL 00:00: morning [place] nebulizer 00 and 2 mL Medica l solution in the Branch evening. albuterol 2022-0 Yes [id number] 2.5mg Inhale 3 [facility] 2.5 mg /3 9-29 mL every 2 ity of mL (0.083 00:00: (two) [place] %) 00 hours as Medical nebulizer needed for Bran ch solution Shortness of Breath or Wheezing. ipratropium 2-0 Yes [id number] .5mg Inhale 2.5 [facility] 0.02 % 9-29 mL every 4 ity of nebulizer 00:00: (four) [place] solution 00 hours as Medical needed for Branch Wheezing or Shortness of Breath. arformotero 2022-0 Yes 15ug Use 2 mL Un renetta L 15 mcg/2 9-29 as ity of mL 00:00: directed [place] nebulizer 00 in the Medical solution morning Branch and 2 mL in the evening. budesonide 2-0 Yes .25mg Inhale 2 Un renet[facility] 0.25 mg/2 9-29 mL in the ity o f mL 00:00: morning [place] nebulizer 00 and 2 mL Medica l solution in the Branch evening. albuterol 2-0 Yes [id number] 2.5mg Inhale 3 [facility] 2.5 mg /3 9-29 mL every 2 ity of mL (0.083 00:00: (two) [place] %) 00 hours as Medical nebulizer needed for Bran ch solution Shortness of Breath or Wheezing. ipratropium 2-0 Yes [id number] .5mg Inhale 2.5 [facility] 0.02 % 9-29 mL every 4 ity of nebulizer 00:00: (four) [place] solution 00 hours as Medical needed for Branch Wheezing or Shortness of Breath. arformotero 2-0 Yes 15ug Use 2 mL Un renetta L 15 mcg/2 9-29 as ity of mL 00:00: directed [place] nebulizer 00 in the Medical solution morning Branch and 2 mL in the evening. budesonide 2-0 Yes .25mg Inhale 2 Un renet[facility] 0.25 mg/2 9-29 mL in the ity o f mL 00:00: morning [place] nebulizer 00 and 2 mL Medica l solution in the Branch evening. albuterol 2022-0 Yes [id number] 2.5mg Inhale 3 [facility] 2.5 mg /3 9-29 mL every 2 ity of mL (0.083 00:00: (two) [place] %) 00 hours as Medical nebulizer needed for Bran ch solution Shortness of Breath or Wheezing. ipratropium 2-0 Yes [id number] .5mg Inhale 2.5 [facility] 0.02 % 9-29 mL every 4 ity of nebulizer 00:00: (four) [place] solution 00 hours as Medical needed for Branch Wheezing or Shortness of Breath. arformotero 2-0 Yes 15ug Use 2 mL Un renetta L 15 mcg/2 9-29 as ity of mL 00:00: directed [place] nebulizer 00 in the Medical solution morning Branch and 2 mL in the evening. budesonide 2-0 Yes .25mg Inhale 2 Un renet[facility] 0.25 mg/2 9-29 mL in the ity o f mL 00:00: morning [place] nebulizer 00 and 2 mL Medica l solution in the Branch evening. albuterol 2-0 Yes [id number] 2.5mg Inhale 3 [facility] 2.5 mg /3 9-29 mL every 2 ity of mL (0.083 00:00: (two) [place] %) 00 hours as Medical nebulizer needed for Bran ch solution Shortness of Breath or Wheezing. ipratropium 2021-0 Yes [id number] .5mg Inhale 2.5 [facility] 0.02 % 9-29 mL every 4 ity of nebulizer 00:00: (four) [place] solution 00 hours as Medical needed for Branch Wheezing or Shortness of Breath. arformotero 2021-0 Yes 15ug Use 2 mL Un renetta L 15 mcg/2 9-29 as ity of mL 00:00: directed [place] nebulizer 00 in the Medical solution morning Branch and 2 mL in the evening. budesonide 2021-0 Yes .25mg Inhale 2 Un renet[facility] 0.25 mg/2 9-29 mL in the ity o f mL 00:00: morning [place] nebulizer 00 and 2 mL Medica l solution in the Branch evening. albuterol 2022-0 Yes [id number] 2.5mg Inhale 3 [facility] 2.5 mg /3 9-29 mL every 2 ity of mL (0.083 00:00: (two) [place] %) 00 hours as Medical nebulizer needed for Bran ch solution Shortness of Breath or Wheezing. ipratropium 2022-0 Yes [id number] .5mg Inhale 2.5 [facility] 0.02 % 9-29 mL every 4 ity of nebulizer 00:00: (four) [place] solution 00 hours as Medical needed for Branch Wheezing or Shortness of Breath. arformotero 2021-0 Yes 15ug Use 2 mL Un renetta L 15 mcg/2 9-29 as ity of mL 00:00: directed [place] nebulizer 00 in the Medical solution morning Branch and 2 mL in the evening. budesonide 2021-0 Yes .25mg Inhale 2 Un renet[facility] 0.25 mg/2 9-29 mL in the ity o f mL 00:00: morning [place] nebulizer 00 and 2 mL Medica l solution in the Branch evening. albuterol 2021-0 Yes [id number] 2.5mg Inhale 3 [facility] 2.5 mg /3 9-29 mL every 2 ity of mL (0.083 00:00: (two) [place] %) 00 hours as Medical nebulizer needed for Bran ch solution Shortness of Breath or Wheezing. ipratropium 2021-0 Yes [id number] .5mg Inhale 2.5 [facility] 0.02 % 9-29 mL every 4 ity of nebulizer 00:00: (four) [place] solution 00 hours as Medical needed for Branch Wheezing or Shortness of Breath. arformotero 2021-0 Yes 15ug Use 2 mL Un renetta L 15 mcg/2 9-29 as ity of mL 00:00: directed [place] nebulizer 00 in the Medical solution morning Branch and 2 mL in the evening. budesonide 2021-0 Yes .25mg Inhale 2 Un [place] 0.25 mg/2 9-29 mL in the ity o f mL 00:00: morning [place] nebulizer 00 and 2 mL Medica l solution in the Branch evening. albuterol 2021-0 Yes [id number] 2.5mg Inhale 3 [facility] 2.5 mg /3 9-29 mL every 2 ity of mL (0.083 00:00: (two) [place] %) 00 hours as Medical nebulizer needed for Bran ch solution Shortness of Breath or Wheezing. ipratropium 2-0 Yes [id number] .5mg Inhale 2.5 [facility] 0.02 % 9-29 mL every 4 ity of nebulizer 00:00: (four) [place] solution 00 hours as Medical needed for Branch Wheezing or Shortness of Breath. arformotero 2021-0 Yes 15ug Use 2 mL Un renetta L 15 mcg/2 9-29 as ity of mL 00:00: directed [place] nebulizer 00 in the Medical solution morning Branch and 2 mL in the evening. budesonide 2-0 Yes .25mg Inhale 2 Un renet[facility] 0.25 mg/2 9-29 mL in the ity o f mL 00:00: morning [place] nebulizer 00 and 2 mL Medica l solution in the Branch evening. albuterol 2-0 Yes [id number] 2.5mg Inhale 3 [facility] 2.5 mg /3 9-29 mL every 2 ity of mL (0.083 00:00: (two) [place] %) 00 hours as Medical nebulizer needed for Bran ch solution Shortness of Breath or Wheezing. ipratropium 2-0 Yes [id number] .5mg Inhale 2.5 [facility] 0.02 % 9-29 mL every 4 ity of nebulizer 00:00: (four) [place] solution 00 hours as Medical needed for Branch Wheezing or Shortness of Breath. arformotero 2-0 Yes 15ug Use 2 mL Un renetta L 15 mcg/2 9-29 as ity of mL 00:00: directed [place] nebulizer 00 in the Medical solution morning Branch and 2 mL in the evening. budesonide 2021-0 Yes .25mg Inhale 2 Un renet[facility] 0.25 mg/2 9-29 mL in the ity o f mL 00:00: morning [place] nebulizer 00 and 2 mL Medica l solution in the Branch evening. albuterol 2-0 Yes [id number] 2.5mg Inhale 3 [facility] 2.5 mg /3 9-29 mL every 2 ity of mL (0.083 00:00: (two) [place] %) 00 hours as Medical nebulizer needed for Bran ch solution Shortness of Breath or Wheezing. ipratropium 2022-0 Yes [id number] .5mg Inhale 2.5 [facility] 0.02 % 9-29 mL every 4 ity of nebulizer 00:00: (four) [place] solution 00 hours as Medical needed for Branch Wheezing or Shortness of Breath. arformotero 2022-0 Yes 15ug Use 2 mL Un renetta L 15 mcg/2 9-29 as ity of mL 00:00: directed [place] nebulizer 00 in the Medical solution morning Branch and 2 mL in the evening. budesonide 2022-0 Yes .25mg Inhale 2 Un renet[facility] 0.25 mg/2 9-29 mL in the ity o f mL 00:00: morning [place] nebulizer 00 and 2 mL Medica l solution in the Branch evening. albuterol 2021-0 Yes [id number] 2.5mg Inhale 3 [facility] 2.5 mg /3 9-29 mL every 2 ity of mL (0.083 00:00: (two) [place] %) 00 hours as Medical nebulizer needed for Bran ch solution Shortness of Breath or Wheezing. ipratropium 2021-0 Yes [id number] .5mg Inhale 2.5 [facility] 0.02 % 9-29 mL every 4 ity of nebulizer 00:00: (four) [place] solution 00 hours as Medical needed for Branch Wheezing or Shortness of Breath. arformotero 2021-0 Yes 15ug Use 2 mL Un renetta L 15 mcg/2 9-29 as ity of mL 00:00: directed [place] nebulizer 00 in the Medical solution morning Branch and 2 mL in the evening. budesonide 2021-0 Yes .25mg Inhale 2 Un renet[facility] 0.25 mg/2 9-29 mL in the ity o f mL 00:00: morning [place] nebulizer 00 and 2 mL Medica l solution in the Branch evening. albuterol 2021-0 Yes [id number] 2.5mg Inhale 3 [facility] 2.5 mg /3 9-29 mL every 2 ity of mL (0.083 00:00: (two) [place] %) 00 hours as Medical nebulizer needed for Bran ch solution Shortness of Breath or Wheezing. ipratropium 2-0 Yes [id number] .5mg Inhale 2.5 [facility] 0.02 % 9-29 mL every 4 ity of nebulizer 00:00: (four) [place] solution 00 hours as Medical needed for Branch Wheezing or Shortness of Breath. arformotero 2-0 Yes 15ug Use 2 mL Un renetta L 15 mcg/2 9-29 as ity of mL 00:00: directed [place] nebulizer 00 in the Medical solution morning Branch and 2 mL in the evening. budesonide 2-0 Yes .25mg Inhale 2 Un renetta 0.25 mg/2 9-29 mL in the ity o f mL 00:00: morning [place] nebulizer 00 and 2 mL Medica l solution in the Branch evening. albuterol 2022-0 Yes [id number] 2.5mg Inhale 3 [facility] 2.5 mg /3 9-29 mL every 2 ity of mL (0.083 00:00: (two) [place] %) 00 hours as Medical nebulizer needed for Bran ch solution Shortness of Breath or Wheezing. ipratropium 2-0 Yes [id number] .5mg Inhale 2.5 [facility] 0.02 % 9-29 mL every 4 ity of nebulizer 00:00: (four) [place] solution 00 hours as Medical needed for Branch Wheezing or Shortness of Breath. arformotero 2-0 Yes 15ug Use 2 mL Un renetta L 15 mcg/2 9-29 as ity of mL 00:00: directed [place] nebulizer 00 in the Medical solution morning Branch and 2 mL in the evening. budesonide 2021-0 Yes .25mg Inhale 2 Un renetta 0.25 mg/2 9-29 mL in the ity o f mL 00:00: morning [place] nebulizer 00 and 2 mL Medica l solution in the Branch evening. albuterol 2-0 Yes [id number] 2.5mg Inhale 3 [facility] 2.5 mg /3 9-29 mL every 2 ity of mL (0.083 00:00: (two) [place] %) 00 hours as Medical nebulizer needed for Bran ch solution Shortness of Breath or Wheezing. ipratropium 2-0 Yes [id number] .5mg Inhale 2.5 [facility] 0.02 % 9-29 mL every 4 ity of nebulizer 00:00: (four) [place] solution 00 hours as Medical needed for Branch Wheezing or Shortness of Breath. arformotero 2022-0 Yes 15ug Use 2 mL Un renetta L 15 mcg/2 9-29 as ity of mL 00:00: directed [place] nebulizer 00 in the Medical solution morning Branch and 2 mL in the evening. budesonide 2-0 Yes .25mg Inhale 2 Un renetta 0.25 mg/2 9-29 mL in the ity o f mL 00:00: morning [place] nebulizer 00 and 2 mL Medica l solution in the Branch evening. albuterol 2022-0 Yes [id number] 2.5mg Inhale 3 [facility] 2.5 mg /3 9-29 mL every 2 ity of mL (0.083 00:00: (two) [place] %) 00 hours as Medical nebulizer needed for Bran ch solution Shortness of Breath or Wheezing. ipratropium 2022-0 Yes [id number] .5mg Inhale 2.5 [facility] 0.02 % 9-29 mL every 4 ity of nebulizer 00:00: (four) [place] solution 00 hours as Medical needed for Branch Wheezing or Shortness of Breath. arformotero 2022-0 Yes 15ug Use 2 mL Un renetta L 15 mcg/2 9-29 as ity of mL 00:00: directed [place] nebulizer 00 in the Medical solution morning Branch and 2 mL in the evening. budesonide 2022-0 Yes .25mg Inhale 2 Un renetta 0.25 mg/2 9-29 mL in the ity o f mL 00:00: morning [place] nebulizer 00 and 2 mL Medica l solution in the Branch evening. albuterol 2022-0 Yes [id number] 2.5mg Inhale 3 [facility] 2.5 mg /3 9-29 mL every 2 ity of mL (0.083 00:00: (two) [place] %) 00 hours as Medical nebulizer needed for Bran ch solution Shortness of Breath or Wheezing. ipratropium 2022-0 Yes [id number] .5mg Inhale 2.5 [facility] 0.02 % 9-29 mL every 4 ity of nebulizer 00:00: (four) [place] solution 00 hours as Medical needed for Branch Wheezing or Shortness of Breath. arformotero 2022-0 Yes 15ug Use 2 mL Un renetta L 15 mcg/2 9-29 as ity of mL 00:00: directed [place] nebulizer 00 in the Medical solution morning Branch and 2 mL in the evening. budesonide 2022-0 Yes .25mg Inhale 2 Un renetta 0.25 mg/2 9-29 mL in the ity o f mL 00:00: morning [place] nebulizer 00 and 2 mL Medica l solution in the Branch evening. albuterol 2022-0 Yes [id number] 2.5mg Inhale 3 [facility] 2.5 mg /3 9-29 mL every 2 ity of mL (0.083 00:00: (two) [place] %) 00 hours as Medical nebulizer needed for Bran ch solution Shortness of Breath or Wheezing. ipratropium 2022-0 Yes [id number] .5mg Inhale 2.5 [facility] 0.02 % 9-29 mL every 4 ity of nebulizer 00:00: (four) [place] solution 00 hours as Medical needed for Branch Wheezing or Shortness of Breath. arformotero 2022-0 Yes 15ug Use 2 mL Un renetta L 15 mcg/2 9-29 as ity of mL 00:00: directed [place] nebulizer 00 in the Medical solution morning Branch and 2 mL in the evening. budesonide 2022-0 Yes .25mg Inhale 2 Un renetta 0.25 mg/2 9-29 mL in the ity o f mL 00:00: morning [place] nebulizer 00 and 2 mL Medica l solution in the Branch evening. albuterol 2022-0 Yes [id number] 2.5mg Inhale 3 [facility] 2.5 mg /3 9-29 mL every 2 ity of mL (0.083 00:00: (two) [place] %) 00 hours as Medical nebulizer needed for Bran ch solution Shortness of Breath or Wheezing. ipratropium 2022-0 Yes [id number] .5mg Inhale 2.5 [facility] 0.02 % 9-29 mL every 4 ity of nebulizer 00:00: (four) [place] solution 00 hours as Medical needed for Branch Wheezing or Shortness of Breath. arformotero 2022-0 Yes 15ug Use 2 mL Un renetta L 15 mcg/2 9-29 as ity of mL 00:00: directed [place] nebulizer 00 in the Medical solution morning Branch and 2 mL in the evening. budesonide 2022-0 Yes .25mg Inhale 2 Un renet[facility] 0.25 mg/2 9-29 mL in the ity o f mL 00:00: morning [place] nebulizer 00 and 2 mL Medica l solution in the Branch evening. albuterol 2022-0 Yes [id number] 2.5mg Inhale 3 [facility] 2.5 mg /3 9-29 mL every 2 ity of mL (0.083 00:00: (two) [place] %) 00 hours as Medical nebulizer needed for Bran ch solution Shortness of Breath or Wheezing. ipratropium 2022-0 Yes [id number] .5mg Inhale 2.5 [facility] 0.02 % 9-29 mL every 4 ity of nebulizer 00:00: (four) [place] solution 00 hours as Medical needed for Branch Wheezing or Shortness of Breath. arformotero 2021-0 Yes 15ug Use 2 mL Un renetta L 15 mcg/2 9-29 as ity of mL 00:00: directed [place] nebulizer 00 in the Medical solution morning Branch and 2 mL in the evening. budesonide 2021-0 Yes .25mg Inhale 2 Un renetta 0.25 mg/2 9-29 mL in the ity o f mL 00:00: morning [place] nebulizer 00 and 2 mL Medica l solution in the Branch evening. albuterol 2021-0 Yes [id number] 2.5mg Inhale 3 [facility] 2.5 mg /3 9-29 mL every 2 ity of mL (0.083 00:00: (two) [place] %) 00 hours as Medical nebulizer needed for Bran ch solution Shortness of Breath or Wheezing. ipratropium 2021-0 Yes [id number] .5mg Inhale 2.5 [facility] 0.02 % 9-29 mL every 4 ity of nebulizer 00:00: (four) [place] solution 00 hours as Medical needed for Branch Wheezing or Shortness of Breath. arformotero 2021-0 Yes 15ug Use 2 mL Un renetta L 15 mcg/2 9-29 as ity of mL 00:00: directed [place] nebulizer 00 in the Medical solution morning Branch and 2 mL in the evening. budesonide 2021-0 Yes .25mg Inhale 2 Un renetta 0.25 mg/2 9-29 mL in the ity o f mL 00:00: morning [place] nebulizer 00 and 2 mL Medica l solution in the Branch evening. albuterol 2-0 Yes [id number] 2.5mg Inhale 3 [facility] 2.5 mg /3 9-29 mL every 2 ity of mL (0.083 00:00: (two) [place] %) 00 hours as Medical nebulizer needed for Bran ch solution Shortness of Breath or Wheezing. ipratropium 2-0 Yes [id number] .5mg Inhale 2.5 [facility] 0.02 % 9-29 mL every 4 ity of nebulizer 00:00: (four) [place] solution 00 hours as Medical needed for Branch Wheezing or Shortness of Breath. arformotero 2022-0 Yes 15ug Use 2 mL Un renetta L 15 mcg/2 9-29 as ity of mL 00:00: directed [place] nebulizer 00 in the Medical solution morning Branch and 2 mL in the evening. budesonide 2-0 Yes .25mg Inhale 2 Un renetta 0.25 mg/2 9-29 mL in the ity o f mL 00:00: morning [place] nebulizer 00 and 2 mL Medica l solution in the Branch evening. albuterol 2022-0 Yes [id number] 2.5mg Inhale 3 [facility] 2.5 mg /3 9-29 mL every 2 ity of mL (0.083 00:00: (two) [place] %) 00 hours as Medical nebulizer needed for Bran ch solution Shortness of Breath or Wheezing. ipratropium 2-0 Yes [id number] .5mg Inhale 2.5 [facility] 0.02 % 9-29 mL every 4 ity of nebulizer 00:00: (four) [place] solution 00 hours as Medical needed for Branch Wheezing or Shortness of Breath. arformotero 2-0 Yes 15ug Use 2 mL Un renetta L 15 mcg/2 9-29 as ity of mL 00:00: directed [place] nebulizer 00 in the Medical solution morning Branch and 2 mL in the evening. budesonide 2-0 Yes .25mg Inhale 2 Un renetta 0.25 mg/2 9-29 mL in the ity o f mL 00:00: morning [place] nebulizer 00 and 2 mL Medica l solution in the Branch evening. albuterol 2022-0 Yes [id number] 2.5mg Inhale 3 [facility] 2.5 mg /3 9-29 mL every 2 ity of mL (0.083 00:00: (two) [place] %) 00 hours as Medical nebulizer needed for Bran ch solution Shortness of Breath or Wheezing. ipratropium 2022-0 Yes [id number] .5mg Inhale 2.5 [facility] 0.02 % 9-29 mL every 4 ity of nebulizer 00:00: (four) [place] solution 00 hours as Medical needed for Branch Wheezing or Shortness of Breath. arformotero 2022-0 Yes 15ug Use 2 mL Un renetta L 15 mcg/2 9-29 as ity of mL 00:00: directed [place] nebulizer 00 in the Medical solution morning Branch and 2 mL in the evening. budesonide 2021-0 Yes .25mg Inhale 2 Un renetta 0.25 mg/2 9-29 mL in the ity o f mL 00:00: morning [place] nebulizer 00 and 2 mL Medica l solution in the Branch evening. albuterol 2021-0 Yes [id number] 2.5mg Inhale 3 [facility] 2.5 mg /3 9-29 mL every 2 ity of mL (0.083 00:00: (two) [place] %) 00 hours as Medical nebulizer needed for Bran ch solution Shortness of Breath or Wheezing. ipratropium 2021-0 Yes [id number] .5mg Inhale 2.5 [facility] 0.02 % 9-29 mL every 4 ity of nebulizer 00:00: (four) [place] solution 00 hours as Medical needed for Branch Wheezing or Shortness of Breath. arformotero 2021-0 Yes 15ug Use 2 mL Un renetta L 15 mcg/2 9-29 as ity of mL 00:00: directed [place] nebulizer 00 in the Medical solution morning Branch and 2 mL in the evening. budesonide 2021-0 Yes .25mg Inhale 2 Un renetta 0.25 mg/2 9-29 mL in the ity o f mL 00:00: morning [place] nebulizer 00 and 2 mL Medica l solution in the Branch evening. albuterol 2021-0 Yes [id number] 2.5mg Inhale 3 [facility] 2.5 mg /3 9-29 mL every 2 ity of mL (0.083 00:00: (two) [place] %) 00 hours as Medical nebulizer needed for Bran ch solution Shortness of Breath or Wheezing. ipratropium 2-0 Yes [id number] .5mg Inhale 2.5 [facility] 0.02 % 9-29 mL every 4 ity of nebulizer 00:00: (four) [place] solution 00 hours as Medical needed for Branch Wheezing or Shortness of Breath. arformotero 2-0 Yes 15ug Use 2 mL Un renetta L 15 mcg/2 9-29 as ity of mL 00:00: directed [place] nebulizer 00 in the Medical solution morning Branch and 2 mL in the evening. budesonide 2-0 Yes .25mg Inhale 2 Un renetta 0.25 mg/2 9-29 mL in the ity o f mL 00:00: morning [place] nebulizer 00 and 2 mL Medica l solution in the Branch evening. albuterol 2-0 Yes [id number] 2.5mg Inhale 3 [facility] 2.5 mg /3 9-29 mL every 2 ity of mL (0.083 00:00: (two) [place] %) 00 hours as Medical nebulizer needed for Bran ch solution Shortness of Breath or Wheezing. ipratropium 2-0 Yes [id number] .5mg Inhale 2.5 [facility] 0.02 % 9-29 mL every 4 ity of nebulizer 00:00: (four) [place] solution 00 hours as Medical needed for Branch Wheezing or Shortness of Breath. arformotero 2-0 Yes 15ug Use 2 mL Un renetta L 15 mcg/2 9-29 as ity of mL 00:00: directed [place] nebulizer 00 in the Medical solution morning Branch and 2 mL in the evening. budesonide 2021-0 Yes .25mg Inhale 2 Un renetta 0.25 mg/2 9-29 mL in the ity o f mL 00:00: morning [place] nebulizer 00 and 2 mL Medica l solution in the Branch evening. albuterol 2-0 Yes [id number] 2.5mg Inhale 3 [facility] 2.5 mg /3 9-29 mL every 2 ity of mL (0.083 00:00: (two) [place] %) 00 hours as Medical nebulizer needed for Bran ch solution Shortness of Breath or Wheezing. ipratropium 2-0 Yes [id number] .5mg Inhale 2.5 [facility] 0.02 % 9-29 mL every 4 ity of nebulizer 00:00: (four) [place] solution 00 hours as Medical needed for Branch Wheezing or Shortness of Breath. arformotero 2022-0 Yes 15ug Use 2 mL Un renetta L 15 mcg/2 9-29 as ity of mL 00:00: directed [place] nebulizer 00 in the Medical solution morning Branch and 2 mL in the evening. budesonide 2-0 Yes .25mg Inhale 2 Un renetta 0.25 mg/2 9-29 mL in the ity o f mL 00:00: morning [place] nebulizer 00 and 2 mL Medica l solution in the Branch evening. albuterol 2-0 Yes [id number] 2.5mg Inhale 3 [facility] 2.5 mg /3 9-29 mL every 2 ity of mL (0.083 00:00: (two) [place] %) 00 hours as Medical nebulizer needed for Bran ch solution Shortness of Breath or Wheezing. ipratropium 2-0 Yes [id number] .5mg Inhale 2.5 [facility] 0.02 % 9-29 mL every 4 ity of nebulizer 00:00: (four) [place] solution 00 hours as Medical needed for Branch Wheezing or Shortness of Breath. arformotero 2021-0 Yes 15ug Use 2 mL Un renetta L 15 mcg/2 9-29 as ity of mL 00:00: directed [place] nebulizer 00 in the Medical solution morning Branch and 2 mL in the evening. budesonide 2021-0 Yes .25mg Inhale 2 Un renetta 0.25 mg/2 9-29 mL in the ity o f mL 00:00: morning [place] nebulizer 00 and 2 mL Medica l solution in the Branch evening. albuterol 2021-0 Yes [id number] 2.5mg Inhale 3 [facility] 2.5 mg /3 9-29 mL every 2 ity of mL (0.083 00:00: (two) [place] %) 00 hours as Medical nebulizer needed for Bran ch solution Shortness of Breath or Wheezing. ipratropium 2-0 Yes [id number] .5mg Inhale 2.5 [facility] 0.02 % 9-29 mL every 4 ity of nebulizer 00:00: (four) [place] solution 00 hours as Medical needed for Branch Wheezing or Shortness of Breath. arformotero 2-0 Yes 15ug Use 2 mL Un renetta L 15 mcg/2 9-29 as ity of mL 00:00: directed [place] nebulizer 00 in the Medical solution morning Branch and 2 mL in the evening. budesonide 2-0 Yes .25mg Inhale 2 Un renetta 0.25 mg/2 9-29 mL in the ity o f mL 00:00: morning [place] nebulizer 00 and 2 mL Medica l solution in the Branch evening. albuterol 2022-0 2023- No [id number] 2.5mg Inhale 3 [facility] 2.5 mg /3 11-30-05 mL every 2 ity of mL (0.083 00:00: 00:00 (two) [place] %) 00 :00 hours as Medical nebulizer needed for Bran ch solution Shortness of Breath or Wheezing. ipratropium 2021-0 2022- No [id number] .5mg Inhale 2.5 [facility] 0.02 % 11-30-05 mL every 4 ity of nebulizer 00:00: 00:00 (four) [place] solution 00 :00 hours as Medical needed for Branch Wheezing or Shortness of Breath. arformotero 2021-0 2022- No 15ug Use 2 mL U nivers L 15 mcg/2 11-30 as ity of mL 00:00: 00:00 directed [place] nebulizer 00 :00 in the Medical solution morning Branch and 2 mL in the evening. budesonide 2021-0 2022- No .25mg Inhale 2 U nivers 0.25 mg/2 11-30- mL in the ity of mL 00:00: 00:00 morning [place] nebulizer 00 :00 and 2 mL Medica l solution in the Branch evening. albuterol 2021-0 2022- No [id number] 2.5mg Inhale 3 [facility] 2.5 mg /3 11-30-05 mL every 2 ity of mL (0.083 00:00: 00:00 (two) [place] %) 00 :00 hours as Medical nebulizer needed for Bran ch solution Shortness of Breath or Wheezing. ipratropium 2021-0 2022- No [id number] .5mg Inhale 2.5 [facility] 0.02 % 11-30-05 mL every 4 ity of nebulizer 00:00: 00:00 (four) [place] solution 00 :00 hours as Medical needed for Branch Wheezing or Shortness of Breath. arformotero 2021-0 2022- No 15ug Use 2 mL U nivers L 15 mcg/2 11-3005 as ity of mL 00:00: 00:00 directed [place] nebulizer 00 :00 in the Medical solution morning Branch and 2 mL in the evening. budesonide 2022-0 2022- No .25mg Inhale 2 U nivers 0.25 mg/2 11-30-05 mL in the ity of mL 00:00: 00:00 morning [place] nebulizer 00 :00 and 2 mL Medica l solution in the Branch evening. albuterol 2021-0 2022- No [id number] 2.5mg Inhale 3 [facility] 2.5 mg /3 11-30 01-05 mL every 2 ity of mL (0.083 00:00: 00:00 (two) [place] %) 00 :00 hours as Medical nebulizer needed for Bran ch solution Shortness of Breath or Wheezing. ipratropium 2021-0 2022- No [id number] .5mg Inhale 2.5 [facility] 0.02 % 11-30-05 mL every 4 ity of nebulizer 00:00: 00:00 (four) [place] solution 00 :00 hours as Medical needed for Branch Wheezing or Shortness of Breath. arformotero 2021-2022- No 15ug Use 2 mL U nivers L 15 mcg/2 11-3005 as ity of mL 00:00: 00:00 directed [place] nebulizer 00 :00 in the Medical solution morning Branch and 2 mL in the evening. budesonide 2021-0 2022- No .25mg Inhale 2 U nivers 0.25 mg/2 11-30-05 mL in the ity of mL 00:00: 00:00 morning [place] nebulizer 00 :00 and 2 mL Medica l solution in the Branch evening. albuterol 2021-2022- No [id number] 2.5mg Inhale 3 [facility] 2.5 mg /3 11-30 01-05 mL every 2 ity of mL (0.083 00:00: 00:00 (two) [place] %) 00 :00 hours as Medical nebulizer needed for Bran ch solution Shortness of Breath or Wheezing. ipratropium 2021-0 3- No [id number] .5mg Inhale 2.5 [facility] 0.02 % 11-30-05 mL every 4 ity of nebulizer 00:00: 00:00 (four) [place] solution 00 :00 hours as Medical needed for Branch Wheezing or Shortness of Breath. arformotero 202-0 2022- No 15ug Use 2 mL U nivers L 15 mcg/2 11-30-05 as ity of mL 00:00: 00:00 directed [place] nebulizer 00 :00 in the Medical solution morning Branch and 2 mL in the evening. budesonide 0 3- No .25mg Inhale 2 U nivers 0.25 mg/2 11-30-05 mL in the ity of mL 00:00: 00:00 morning [place] nebulizer 00 :00 and 2 mL Medica l solution in the Branch evening. Desoximetas 0 Yes [id number] Apply to [facility] one 0.25 % 9-27 area(s) 2 ity of ointment 00:00: (two) [place] 00 times Medical daily. Branch Desoximetas 0 Yes [id number] Apply to [facility] one 0.25 % 9-27 area(s) 2 ity of ointment 00:00: (two) [place] 00 times Medical daily. Branch Desoximetas 0 Yes [id number] Apply to [facility] one 0.25 % 9-27 area(s) 2 ity of ointment 00:00: (two) [place] 00 times Medical daily. Branch Desoximetas 0 Yes [id number] Apply to [facility] one 0.25 % 9-27 area(s) 2 ity of ointment 00:00: (two) [place] 00 times Medical daily. Branch Desoximetas 0 Yes [id number] Apply to [facility] one 0.25 % 9-27 area(s) 2 ity of ointment 00:00: (two) [place] 00 times Medical daily. Branch Desoximetas 0 Yes [id number] Apply to [facility] one 0.25 % 9-27 area(s) 2 ity of ointment 00:00: (two) [place] 00 times Medical daily. Branch Desoximetas 2021-0 Yes [id number] Apply to [facility] one 0.25 % 9-27 area(s) 2 ity of ointment 00:00: (two) [place] 00 times Medical daily. Branch Desoximetas 2021-0 Yes [id number] Apply to [facility] one 0.25 % 9-27 area(s) 2 ity of ointment 00:00: (two) [place] 00 times Medical daily. Branch Desoximetas 2022-0 Yes [id number] Apply to [facility] one 0.25 % 9-27 area(s) 2 ity of ointment 00:00: (two) [place] 00 times Medical daily. Branch Desoximetas 2022-0 Yes [id number] Apply to [facility] one 0.25 % 9-27 area(s) 2 ity of ointment 00:00: (two) [place] 00 times Medical daily. Branch Desoximetas 2022-0 Yes [id number] Apply to [facility] one 0.25 % 9-27 area(s) 2 ity of ointment 00:00: (two) [place] 00 times Medical daily. Branch Desoximetas 2022-0 Yes [id number] Apply to [facility] one 0.25 % 9-27 area(s) 2 ity of ointment 00:00: (two) [place] 00 times Medical daily. Branch Desoximetas 2022-0 Yes [id number] Apply to [facility] one 0.25 % 9-27 area(s) 2 ity of ointment 00:00: (two) [place] 00 times Medical daily. Branch Desoximetas 2022-0 Yes [id number] Apply to [facility] one 0.25 % 9-27 area(s) 2 ity of ointment 00:00: (two) [place] 00 times Medical daily. Branch Desoximetas 2022-0 Yes [id number] Apply to [facility] one 0.25 % 9-27 area(s) 2 ity of ointment 00:00: (two) [place] 00 times Medical daily. Branch Desoximetas 2022-0 Yes [id number] Apply to [facility] one 0.25 % 9-27 area(s) 2 ity of ointment 00:00: (two) [place] 00 times Medical daily. Branch Desoximetas 2022-0 Yes [id number] Apply to [facility] one 0.25 % 9-27 area(s) 2 ity of ointment 00:00: (two) [place] 00 times Medical daily. Branch Desoximetas 2022-0 Yes [id number] Apply to [facility] one 0.25 % 9-27 area(s) 2 ity of ointment 00:00: (two) [place] 00 times Medical daily. Branch Desoximetas 2022-0 Yes [id number] Apply to [facility] one 0.25 % 9-27 area(s) 2 ity of ointment 00:00: (two) [place] 00 times Medical daily. Branch Desoximetas 2022-0 Yes [id number] Apply to [facility] one 0.25 % 9-27 area(s) 2 ity of ointment 00:00: (two) [place] 00 times Medical daily. Branch Desoximetas 2022-0 Yes [id number] Apply to [facility] one 0.25 % 9-27 area(s) 2 ity of ointment 00:00: (two) [place] 00 times Medical daily. Branch Desoximetas 2022-0 Yes [id number] Apply to [facility] one 0.25 % 9-27 area(s) 2 ity of ointment 00:00: (two) [place] 00 times Medical daily. Branch Desoximetas 2022-0 Yes [id number] Apply to [facility] one 0.25 % 9-27 area(s) 2 ity of ointment 00:00: (two) [place] 00 times Medical daily. Branch Desoximetas 2022-0 Yes [id number] Apply to [facility] one 0.25 % 9-27 area(s) 2 ity of ointment 00:00: (two) [place] 00 times Medical daily. Branch Desoximetas 2022-0 Yes [id number] Apply to [facility] one 0.25 % 9-27 area(s) 2 ity of ointment 00:00: (two) [place] 00 times Medical daily. Branch Desoximetas 2022-0 Yes [id number] Apply to [facility] one 0.25 % 9-27 area(s) 2 ity of ointment 00:00: (two) [place] 00 times Medical daily. Branch Desoximetas 2022-0 Yes [id number] Apply to [facility] one 0.25 % 9-27 area(s) 2 ity of ointment 00:00: (two) [place] 00 times Medical daily. Branch Desoximetas 2022-0 Yes [id number] Apply to [facility] one 0.25 % 9-27 area(s) 2 ity of ointment 00:00: (two) [place] 00 times Medical daily. Branch Desoximetas 2022-0 Yes [id number] Apply to [facility] one 0.25 % 9-27 area(s) 2 ity of ointment 00:00: (two) [place] 00 times Medical daily. Branch Desoximetas 2022-0 Yes [id number] Apply to [facility] one 0.25 % 9-27 area(s) 2 ity of ointment 00:00: (two) [place] 00 times Medical daily. Branch Desoximetas 2022-0 Yes [id number] Apply to [facility] one 0.25 % 9-27 area(s) 2 ity of ointment 00:00: (two) [place] 00 times Medical daily. Branch Desoximetas 2022-0 Yes [id number] Apply to [facility] one 0.25 % 9-27 area(s) 2 ity of ointment 00:00: (two) [place] 00 times Medical daily. Branch Desoximetas 2022-0 Yes [id number] Apply to [facility] one 0.25 % 9-27 area(s) 2 ity of ointment 00:00: (two) [place] 00 times Medical daily. Branch Desoximetas 2022-0 Yes [id number] Apply to [facility] one 0.25 % 9-27 area(s) 2 ity of ointment 00:00: (two) [place] 00 times Medical daily. Branch Desoximetas 2022-0 Yes [id number] Apply to [facility] one 0.25 % 9-27 area(s) 2 ity of ointment 00:00: (two) [place] 00 times Medical daily. Branch Desoximetas 2022-0 Yes [id number] Apply to [facility] one 0.25 % 9-27 area(s) 2 ity of ointment 00:00: (two) [place] 00 times Medical daily. Branch Desoximetas 2022-0 Yes [id number] Apply to [facility] one 0.25 % 9-27 area(s) 2 ity of ointment 00:00: (two) [place] 00 times Medical daily. Branch Desoximetas 2022-0 Yes [id number] Apply to [facility] one 0.25 % 9-27 area(s) 2 ity of ointment 00:00: (two) [place] 00 times Medical daily. Branch Desoximetas 2022-0 Yes [id number] Apply to [facility] one 0.25 % 9-27 area(s) 2 ity of ointment 00:00: (two) [place] 00 times Medical daily. Branch Desoximetas 2022-0 Yes [id number] Apply to [facility] one 0.25 % 9-27 area(s) 2 ity of ointment 00:00: (two) [place] 00 times Medical daily. Branch Desoximetas 2022-0 Yes [id number] Apply to [facility] one 0.25 % 9-27 area(s) 2 ity of ointment 00:00: (two) [place] 00 times Medical daily. Branch Desoximetas 2022-0 Yes [id number] Apply to [facility] one 0.25 % 9-27 area(s) 2 ity of ointment 00:00: (two) [place] 00 times Medical daily. Branch Desoximetas 2022-0 Yes [id number] Apply to [facility] one 0.25 % 9-27 area(s) 2 ity of ointment 00:00: (two) [place] 00 times Medical daily. Branch Desoximetas 2022-0 Yes [id number] Apply to [facility] one 0.25 % 9-27 area(s) 2 ity of ointment 00:00: (two) [place] 00 times Medical daily. Branch Desoximetas 2022-0 Yes [id number] Apply to [facility] one 0.25 % 9-27 area(s) 2 ity of ointment 00:00: (two) [place] 00 times Medical daily. Branch Desoximetas 2022-0 Yes [id number] Apply to [facility] one 0.25 % 9-27 area(s) 2 ity of ointment 00:00: (two) [place] 00 times Medical daily. Branch Desoximetas 2022-0 Yes [id number] Apply to [facility] one 0.25 % 9-27 area(s) 2 ity of ointment 00:00: (two) [place] 00 times Medical daily. Branch Desoximetas 2022-0 Yes [id number] Apply to [facility] one 0.25 % 9-27 area(s) 2 ity of ointment 00:00: (two) [place] 00 times Medical daily. Branch Desoximetas 2022-0 Yes [id number] Apply to [facility] one 0.25 % 9-27 area(s) 2 ity of ointment 00:00: (two) [place] 00 times Medical daily. Branch Desoximetas 2022-0 Yes [id number] Apply to [facility] one 0.25 % 9-27 area(s) 2 ity of ointment 00:00: (two) [place] 00 times Medical daily. Branch Desoximetas 2022-0 Yes [id number] Apply to [facility] one 0.25 % 9-27 area(s) 2 ity of ointment 00:00: (two) [place] 00 times Medical daily. Branch Desoximetas 2022-0 Yes [id number] Apply to [facility] one 0.25 % 9-27 area(s) 2 ity of ointment 00:00: (two) [place] 00 times Medical daily. Branch Desoximetas 2022-0 Yes [id number] Apply to [facility] one 0.25 % 9-27 area(s) 2 ity of ointment 00:00: (two) [place] 00 times Medical daily. Branch Desoximetas 2022-0 Yes [id number] Apply to [facility] one 0.25 % 9-27 area(s) 2 ity of ointment 00:00: (two) [place] 00 times Medical daily. Branch Desoximetas 2022-0 Yes [id number] Apply to [facility] one 0.25 % 9-27 area(s) 2 ity of ointment 00:00: (two) [place] 00 times Medical daily. Branch Desoximetas 2022-0 Yes [id number] Apply to [facility] one 0.25 % 9-27 area(s) 2 ity of ointment 00:00: (two) [place] 00 times Medical daily. Branch Desoximetas 2022-0 Yes [id number] Apply to [facility] one 0.25 % 9-27 area(s) 2 ity of ointment 00:00: (two) [place] 00 times Medical daily. Branch Desoximetas 2022-0 Yes [id number] Apply to [facility] one 0.25 % 9-27 area(s) 2 ity of ointment 00:00: (two) [place] 00 times Medical daily. Branch Desoximetas 2022-0 Yes [id number] Apply to [facility] one 0.25 % 9-27 area(s) 2 ity of ointment 00:00: (two) [place] 00 times Medical daily. Branch Desoximetas 2022-0 Yes [id number] Apply to [facility] one 0.25 % 9-27 area(s) 2 ity of ointment 00:00: (two) [place] 00 times Medical daily. Branch Desoximetas 2022-0 Yes [id number] Apply to [facility] one 0.25 % 9-27 area(s) 2 ity of ointment 00:00: (two) [place] 00 times Medical daily. Branch Desoximetas 2022-0 Yes [id number] Apply to [facility] one 0.25 % 9-27 area(s) 2 ity of ointment 00:00: (two) [place] 00 times Medical daily. Branch Desoximetas 2022-0 Yes [id number] Apply to [facility] one 0.25 % 9-27 area(s) 2 ity of ointment 00:00: (two) [place] 00 times Medical daily. Branch Desoximetas 2022-0 Yes [id number] Apply to [facility] one 0.25 % 9-27 area(s) 2 ity of ointment 00:00: (two) [place] 00 times Medical daily. Branch Desoximetas 2-0 Yes [id number] Apply to [facility] one 0.25 % 9-27 area(s) 2 ity of ointment 00:00: (two) [place] 00 times Medical daily. Branch hydrOXYzine 2021-0 Yes [id number] 25mg Take 1 [facility] 25 mg 9-12 capsule by ity of capsule 00:00: mouth 3 [place] 00 (three) Medical times [place] daily as needed for Itching. allopurinoL 2-0 Yes [id number] 50mg Take 0.5 [facility] 100 mg 9-12 tablets by ity of tablet 00:00: mouth [place] 00 every Medical other day. Branch hydrOXYzine 2021-0 Yes [id number] 25mg Take 1 [facility] 25 mg 9-12 capsule by ity of capsule 00:00: mouth 3 [place] 00 (three) Medical times [place] daily as needed for Itching. allopurinoL 2021-0 Yes [id number] 50mg Take 0.5 [facility] 100 mg 9-12 tablets by ity of tablet 00:00: mouth [place] 00 every Medical other day. Branch hydrOXYzine 2021-0 Yes [id number] 25mg Take 1 [facility] 25 mg 9-12 capsule by ity of capsule 00:00: mouth 3 (three) Medical times Branch daily as needed for Itching. allopurinoL 2021-0 Yes [id number] 50mg Take 0.5 [facility] 100 mg 9-12 tablets by ity of tablet 00:00: mouth [place] 00 every Medical other day. Branch hydrOXYzine 2021-0 Yes [id number] 25mg Take 1 [facility] 25 mg 9-12 capsule by ity of capsule 00:00: mouth 3 (three) Medical times Branch daily as needed for Itching. allopurinoL 2021-0 Yes [id number] 50mg Take 0.5 [facility] 100 mg 9-12 tablets by ity of tablet 00:00: mouth [place] 00 every Medical other day. Branch hydrOXYzine 2021-0 Yes [id number] 25mg Take 1 [facility] 25 mg 9-12 capsule by ity of capsule 00:00: mouth (three) Medical times Branch daily as needed for Itching. allopurinoL 2021-0 Yes [id number] 50mg Take 0.5 [facility] 100 mg 9-12 tablets by ity of tablet 00:00: mouth [place] 00 every Medical other day. Branch hydrOXYzine 2021-0 Yes [id number] 25mg Take 1 [facility] 25 mg 9-12 capsule by ity of capsule 00:00: mouth (three) Medical times Branch daily as needed for Itching. allopurinoL 2021-0 Yes [id number] 50mg Take 0.5 [facility] 100 mg 9-12 tablets by ity of tablet 00:00: mouth [place] 00 every Medical other day. Branch hydrOXYzine 2021-0 Yes [id number] 25mg Take 1 [facility] 25 mg 9-12 capsule by ity of capsule 00:00: mouth 3 (three) Medical times Branch daily as needed for Itching. allopurinoL 2-0 Yes [id number] 50mg Take 0.5 [facility] 100 mg 9-12 tablets by ity of tablet 00:00: mouth [place] 00 every Medical other day. Branch hydrOXYzine 2021-0 Yes [id number] 25mg Take 1 [facility] 25 mg 9-12 capsule by ity of capsule 00:00: mouth (three) Medical times Branch daily as needed for Itching. allopurinoL 2021-0 Yes [id number] 50mg Take 0.5 [facility] 100 mg 9-12 tablets by ity of tablet 00:00: mouth 00 every Medical other day. Branch hydrOXYzine 2021-0 Yes [id number] 25mg Take 1 [facility] 25 mg 9-12 capsule by ity of capsule 00:00: mouth (three) Medical times Branch daily as needed for Itching. allopurinoL 2021-0 Yes [id number] 50mg Take 0.5 [facility] 100 mg 9-12 tablets by ity of tablet 00:00: mouth 00 every Medical other day. Branch hydrOXYzine 2021-0 Yes [id number] 25mg Take 1 [facility] 25 mg 9-12 capsule by ity of capsule 00:00: mouth (three) Medical times Branch daily as needed for Itching. allopurinoL 2021-0 Yes [id number] 50mg Take 0.5 [facility] 100 mg 9-12 tablets by ity of tablet 00:00: mouth every Medical other day. Branch hydrOXYzine 2021-0 Yes [id number] 25mg Take 1 [facility] 25 mg 9-12 capsule by ity of capsule 00:00: mouth (three) Medical times Branch daily as needed for Itching. allopurinoL 2021-0 Yes [id number] 50mg Take 0.5 [facility] 100 mg 9-12 tablets by ity of tablet 00:00: mouth 00 every Medical other day. Branch hydrOXYzine 2021-0 Yes [id number] 25mg Take 1 [facility] 25 mg 9-12 capsule by ity of capsule 00:00: mouth (three) Medical times Branch daily as needed for Itching. allopurinoL 2-0 Yes [id number] 50mg Take 0.5 [facility] 100 mg 9-12 tablets by ity of tablet 00:00: mouth 00 every Medical other day. Branch hydrOXYzine 2-0 Yes [id number] 25mg Take 1 [facility] 25 mg 9-12 capsule by ity of capsule 00:00: mouth (three) Medical times Branch daily as needed for Itching. allopurinoL 2-0 Yes [id number] 50mg Take 0.5 [facility] 100 mg 9-12 tablets by ity of tablet 00:00: mouth [place] 00 every Medical other day. Branch hydrOXYzine 2021-0 Yes [id number] 25mg Take 1 [facility] 25 mg 9-12 capsule by ity of capsule 00:00: mouth 3 (three) Medical times Branch daily as needed for Itching. allopurinoL 2-0 Yes [id number] 50mg Take 0.5 [facility] 100 mg 9-12 tablets by ity of tablet 00:00: mouth [place] 00 every Medical other day. Branch hydrOXYzine 2021-0 Yes [id number] 25mg Take 1 [facility] 25 mg 9-12 capsule by ity of capsule 00:00: mouth 3 (three) Medical times Branch daily as needed for Itching. allopurinoL 2021-0 Yes [id number] 50mg Take 0.5 [facility] 100 mg 9-12 tablets by ity of tablet 00:00: mouth [place] 00 every Medical other day. Branch hydrOXYzine 2021-0 Yes [id number] 25mg Take 1 [facility] 25 mg 9-12 capsule by ity of capsule 00:00: mouth (three) Medical times Branch daily as needed for Itching. allopurinoL 2021-0 Yes [id number] 50mg Take 0.5 [facility] 100 mg 9-12 tablets by ity of tablet 00:00: mouth [place] 00 every Medical other day. Branch hydrOXYzine 2021-0 Yes [id number] 25mg Take 1 [facility] 25 mg 9-12 capsule by ity of capsule 00:00: mouth (three) Medical times Branch daily as needed for Itching. allopurinoL 2021-0 Yes [id number] 50mg Take 0.5 [facility] 100 mg 9-12 tablets by ity of tablet 00:00: mouth [place] 00 every Medical other day. Branch hydrOXYzine 2021-0 Yes [id number] 25mg Take 1 [facility] 25 mg 9-12 capsule by ity of capsule 00:00: mouth 3 (three) Medical times Branch daily as needed for Itching. allopurinoL 2022-0 Yes [id number] 50mg Take 0.5 [facility] 100 mg 9-12 tablets by [facility] of tablet 00:00: mouth [place] 00 every Medical other day. Branch hydrOXYzine 2-0 Yes [id number] 25mg Take 1 [facility] 25 mg 9-12 capsule by [facility] of capsule 00:00: mouth (three) Medical times Branch daily as needed for Itching. allopurinoL 2-0 Yes [id number] 50mg Take 0.5 [facility] 100 mg 9-12 tablets by [facility] of tablet 00:00: mouth 00 every Medical other day. Branch hydrOXYzine 2021-0 Yes [id number] 25mg Take 1 [facility] 25 mg 9-12 capsule by [facility] of capsule 00:00: mouth (three) Medical times Branch daily as needed for Itching. allopurinoL 2021-0 Yes [id number] 50mg Take 0.5 [facility] 100 mg 9-12 tablets by [facility] of tablet 00:00: mouth 00 every Medical other day. Branch hydrOXYzine 2021-0 Yes [id number] 25mg Take 1 [facility] 25 mg 9-12 capsule by [facility] of capsule 00:00: mouth (three) Medical times Branch daily as needed for Itching. allopurinoL 2021-0 Yes [id number] 50mg Take 0.5 [facility] 100 mg 9-12 tablets by [facility] of tablet 00:00: mouth every Medical other day. Branch hydrOXYzine 2021-0 Yes [id number] 25mg Take 1 [facility] 25 mg 9-12 capsule by [facility] of capsule 00:00: mouth (three) Medical times Branch daily as needed for Itching. allopurinoL 2021-0 Yes [id number] 50mg Take 0.5 [facility] 100 mg 9-12 tablets by [facility] of tablet 00:00: mouth 00 every Medical other day. Branch hydrOXYzine 2021-0 Yes [id number] 25mg Take 1 [facility] 25 mg 9-12 capsule by [facility] of capsule 00:00: mouth (three) Medical times Branch daily as needed for Itching. allopurinoL 2-0 Yes [id number] 50mg Take 0.5 [facility] 100 mg 9-12 tablets by [facility]y of tablet 00:00: mouth 00 every Medical other day. Branch hydrOXYzine 2-0 Yes [id number] 25mg Take 1 [facility] 25 mg 9-12 capsule by [facility] of capsule 00:00: mouth (three) Medical times Branch daily as needed for Itching. allopurinoL 2022-0 Yes [id number] 50mg Take 0.5 [facility] 100 mg 9-12 tablets by it[facility] of tablet 00:00: mouth [place] 00 every Medical other day. Branch hydrOXYzine 2-0 Yes [id number] 25mg Take 1 [facility] 25 mg 9-12 capsule by [facility] of capsule 00:00: mouth (three) Medical times Branch daily as needed for Itching. allopurinoL 2022-0 Yes [id number] 50mg Take 0.5 [facility] 100 mg 9-12 tablets by [facility] of tablet 00:00: mouth [place] 00 every Medical other day. Branch hydrOXYzine 2-0 Yes [id number] 25mg Take 1 [facility] 25 mg 9-12 capsule by ity of capsule 00:00: mouth 3 (three) Medical times Branch daily as needed for Itching. allopurinoL 2022-0 Yes [id number] 50mg Take 0.5 [facility] 100 mg 9-12 tablets by ity of tablet 00:00: mouth [place] 00 every Medical other day. Branch hydrOXYzine 2-0 Yes [id number] 25mg Take 1 [facility] 25 mg 9-12 capsule by [facility] of capsule 00:00: mouth (three) Medical times Branch daily as needed for Itching. allopurinoL 2-0 Yes [id number] 50mg Take 0.5 [facility] 100 mg 9-12 tablets by ity of tablet 00:00: mouth 00 every Medical other day. Branch hydrOXYzine 2-0 Yes [id number] 25mg Take 1 [facility] 25 mg 9-12 capsule by [facility] of capsule 00:00: mouth (three) Medical times Branch daily as needed for Itching. allopurinoL 2022-0 Yes [id number] 50mg Take 0.5 [facility] 100 mg 9-12 tablets by ity of tablet 00:00: mouth [place] 00 every Medical other day. Branch hydrOXYzine 2-0 Yes [id number] 25mg Take 1 [facility] 25 mg 9-12 capsule by [facility]y of capsule 00:00: mouth (three) Medical times Branch daily as needed for Itching. allopurinoL 2022-0 Yes [id number] 50mg Take 0.5 [facility] 100 mg 9-12 tablets by ity of tablet 00:00: mouth [place] 00 every Medical other day. Branch hydrOXYzine 2-0 Yes [id number] 25mg Take 1 [facility] 25 mg 9-12 capsule by [facility]y of capsule 00:00: mouth 3 (three) Medical times Branch daily as needed for Itching. allopurinoL 2-0 Yes [id number] 50mg Take 0.5 [facility] 100 mg 9-12 tablets by [facility]y of tablet 00:00: mouth [place] 00 every Medical other day. Branch hydrOXYzine 2-0 Yes [id number] 25mg Take 1 [facility] 25 mg 9-12 capsule by [facility] of capsule 00:00: mouth 3 (three) Medical times Branch daily as needed for Itching. allopurinoL 2021-0 Yes [id number] 50mg Take 0.5 [facility] 100 mg 9-12 tablets by ity of tablet 00:00: mouth [place] 00 every Medical other day. Branch hydrOXYzine 2021-0 Yes [id number] 25mg Take 1 [facility] 25 mg 9-12 capsule by ity of capsule 00:00: mouth 3 (three) Medical times Branch daily as needed for Itching. allopurinoL 2021-0 Yes [id number] 50mg Take 0.5 [facility] 100 mg 9-12 tablets by [facility]y of tablet 00:00: mouth [place] 00 every Medical other day. Branch hydrOXYzine 2021-0 Yes [id number] 25mg Take 1 [facility] 25 mg 9-12 capsule by [facility]y of capsule 00:00: mouth 3 (three) Medical times Branch daily as needed for Itching. allopurinoL 2021-0 Yes [id number] 50mg Take 0.5 [facility] 100 mg 9-12 tablets by [facility] of tablet 00:00: mouth [place] 00 every Medical other day. Branch allopurinoL 2021-0 Yes [id number] 50mg Take 0.5 [facility] 100 mg 9-12 tablets by ity of tablet 00:00: mouth [place] 00 every Medical other day. Branch allopurinoL 2021-0 Yes [id number] 50mg Take 0.5 [facility] 100 mg 9-12 tablets by [facility]y of tablet 00:00: mouth [place] 00 every Medical other day. Branch allopurinoL 2-0 Yes [id number] 50mg Take 0.5 [facility] 100 mg 9-12 tablets by [facility] of tablet 00:00: mouth [place] 00 every Medical other day. Branch allopurinoL 2-0 Yes [id number] 50mg Take 0.5 [facility] 100 mg 9-12 tablets by [facility] of tablet 00:00: mouth [place] 00 every Medical other day. Branch allopurinoL 2021-0 Yes [id number] 50mg Take 0.5 [facility] 100 mg 9-12 tablets by [facility]y of tablet 00:00: mouth [place] 00 every Medical other day. Branch allopurinoL 2021-0 Yes [id number] 50mg Take 0.5 [facility] 100 mg 9-12 tablets by [facility] of tablet 00:00: mouth [place] 00 every Medical other day. Branch allopurinoL 2021-0 Yes [id number] 50mg Take 0.5 [facility] 100 mg 9-12 tablets by [facility] of tablet 00:00: mouth [place] 00 every Medical other day. Branch allopurinoL 2021-0 Yes [id number] 50mg Take 0.5 [facility] 100 mg 9-12 tablets by [facility]y of tablet 00:00: mouth [place] 00 every Medical other day. Branch allopurinoL 2021-0 Yes [id number] 50mg Take 0.5 [facility] 100 mg 9-12 tablets by [facility]y of tablet 00:00: mouth [place] 00 every Medical other day. Branch allopurinoL 2021-0 Yes [id number] 50mg Take 0.5 [facility] 100 mg 9-12 tablets by [facility] of tablet 00:00: mouth [place] 00 every Medical other day. Branch allopurinoL 0 Yes [id number] 50mg Take 0.5 [facility] 100 mg 9-12 tablets by [facility] of tablet 00:00: mouth [place] 00 every Medical other day. Branch allopurinoL 0 Yes [id number] 50mg Take 0.5 [facility] 100 mg 9-12 tablets by [facility] of tablet 00:00: mouth [place] 00 every Medical other day. Branch allopurinoL 2021-0 Yes [id number] 50mg Take 0.5 [facility] 100 mg 9-12 tablets by [facility]y of tablet 00:00: mouth [place] 00 every Medical other day. Branch allopurinoL 2021-0 2022- No [id number] 50mg Take 0.5 [facility] 100 mg 9-12 01-05 tablets by ity of tablet 00:00: 00:00 mouth [place] 00 :00 every Medical other day. Branch allopurinoL 2021-0 3- No [id number] 50mg Take 0.5 [facility] 100 mg 9-12 01-05 tablets by ity of tablet 00:00: 00:00 mouth [place] 00 :00 every Medical other day. Branch allopurinoL 2021-0 3- No [id number] 50mg Take 0.5 [facility] 100 mg 9-12 01-05 tablets by ity of tablet 00:00: 00:00 mouth [place] 00 :00 every Medical other day. [place] allopurinoL 2022- No [id number] 50mg Take 0.5 [facility] 100 mg 11-13 tablets by ity of tablet 00:00: 00:00 mouth [place] 00 :00 every Medical other day. [place] hydrOXYzine 2021- No [id number] 25mg Take 1 [facility] 25 mg 11-13 capsule by ity of capsule 00:00: 00:00 mouth 3 [place] 00 :00 (three) Medical times [place] daily as needed for Itching. hydrOXYzine 2021- No 25mg Take 25 mg [facility] 25 mg 11-13 by mouth. ity of tablet 00:00: 00:00 [place] 00 :00 Medical Branch hydrOXYzine 2021-2021- No 25mg Take 25 mg [facility] 25 mg 11-1307 by mouth. ity of tablet 00:00: 00:00 [place] 00 :00 Medical Branch oxymetazoli 2021-0 Yes 1{puff} Use 1 Puff [facility] ne HCl 9-01 in each ity of (AFRIN 09:34: nostril [place] NASAL) 49 every Medical other day. [place] Patient takes afrin over the counter, takes every other day oxymetazoli 2021-0 Yes 1{puff} Use 1 Puff [facility] ne HCl 9-01 in each ity of (AFRIN 09:34: nostril [place] NASAL) 49 every Medical other day. [place] Patient takes afrin over the counter, takes every other day oxymetazoli 2021-0 Yes 1{puff} Use 1 Puff [facility] ne HCl 9-01 in each ity of (AFRIN 09:34: nostril [place] NASAL) 49 every Medical other day. [place] Patient takes afrin over the counter, takes every other day oxymetazoli 2022-0 Yes 1{puff} Use 1 Puff [facility] ne HCl 9-01 in each ity of (AFRIN 09:34: nostril [place] NASAL) 49 every Medical other day. [place] Patient takes afrin over the counter, takes every other day oxymetazoli 2022-0 Yes 1{puff} Use 1 Puff [facility] ne HCl 9-01 in each ity of (AFRIN 09:34: nostril [place] NASAL) 49 every Medical other day. Branch Patient takes afrin over the counter, takes every other day oxymetazoli 2022-0 Yes 1{puff} Use 1 Puff [facility] ne HCl 9-01 in each ity of (AFRIN 09:34: nostril [place] NASAL) 49 every Medical other day. Branch Patient takes afrin over the counter, takes every other day oxymetazoli 2022-0 Yes 1{puff} Use 1 Puff [facility] ne HCl 9-01 in each ity of (AFRIN 09:34: nostril [place] NASAL) 49 every Medical other day. Branch Patient takes afrin over the counter, takes every other day oxymetazoli 2022-0 Yes 1{puff} Use 1 Puff [facility] ne HCl 9-01 in each ity of (AFRIN 09:34: nostril [place] NASAL) 49 every Medical other day. Branch Patient takes afrin over the counter, takes every other day oxymetazoli 2022-0 Yes 1{puff} Use 1 Puff [facility] ne HCl 9-01 in each ity of (AFRIN 09:34: nostril [place] NASAL) 49 every Medical other day. Branch Patient takes afrin over the counter, takes every other day oxymetazoli 2022-0 Yes 1{puff} Use 1 Puff [facility] ne HCl 9-01 in each ity of (AFRIN 09:34: nostril [place] NASAL) 49 every Medical other day. Branch Patient takes afrin over the counter, takes every other day oxymetazoli 2022-0 Yes 1{puff} Use 1 Puff [facility] ne HCl 9-01 in each ity of (AFRIN 09:34: nostril [place] NASAL) 49 every Medical other day. Branch Patient takes afrin over the counter, takes every other day oxymetazoli 2022-0 Yes 1{puff} Use 1 Puff [facility] ne HCl 9-01 in each ity of (AFRIN 09:34: nostril [place] NASAL) 49 every Medical other day. Branch Patient takes afrin over the counter, takes every other day oxymetazoli 2022-0 Yes 1{puff} Use 1 Puff [facility] ne HCl 9-01 in each ity of (AFRIN 09:34: nostril [place] NASAL) 49 every Medical other day. Branch Patient takes afrin over the counter, takes every other day oxymetazoli 2022-0 Yes 1{puff} Use 1 Puff [facility] ne HCl 9-01 in each ity of (AFRIN 09:34: nostril [place] NASAL) 49 every Medical other day. Branch Patient takes afrin over the counter, takes every other day oxymetazoli 2022-0 Yes 1{puff} Use 1 Puff [facility] ne HCl 9-01 in each ity of (AFRIN 09:34: nostril [place] NASAL) 49 every Medical other day. Branch Patient takes afrin over the counter, takes every other day oxymetazoli 2022-0 Yes 1{puff} Use 1 Puff [facility] ne HCl 9-01 in each ity of (AFRIN 09:34: nostril [place] NASAL) 49 every Medical other day. Branch Patient takes afrin over the counter, takes every other day oxymetazoli 2022-0 Yes 1{puff} Use 1 Puff [facility] ne HCl 9-01 in each ity of (AFRIN 09:34: nostril [place] NASAL) 49 every Medical other day. Branch Patient takes afrin over the counter, takes every other day oxymetazoli 2022-0 Yes 1{puff} Use 1 Puff [facility] ne HCl 9-01 in each ity of (AFRIN 09:34: nostril [place] NASAL) 49 every Medical other day. Branch Patient takes afrin over the counter, takes every other day oxymetazoli 2022-0 Yes 1{puff} Use 1 Puff [facility] ne HCl 9-01 in each ity of (AFRIN 09:34: nostril [place] NASAL) 49 every Medical other day. Branch Patient takes afrin over the counter, takes every other day oxymetazoli 2022-0 Yes 1{puff} Use 1 Puff [facility] ne HCl 9-01 in each ity of (AFRIN 09:34: nostril [place] NASAL) 49 every Medical other day. Branch Patient takes afrin over the counter, takes every other day oxymetazoli 2022-0 Yes 1{puff} Use 1 Puff [facility] ne HCl 9-01 in each ity of (AFRIN 09:34: nostril [place] NASAL) 49 every Medical other day. Branch Patient takes afrin over the counter, takes every other day oxymetazoli 2022-0 Yes 1{puff} Use 1 Puff [facility] ne HCl 9-01 in each ity of (AFRIN 09:34: nostril [place] NASAL) 49 every Medical other day. Branch Patient takes afrin over the counter, takes every other day oxymetazoli 2022-0 Yes 1{puff} Use 1 Puff [facility] ne HCl 9-01 in each ity of (AFRIN 09:34: nostril [place] NASAL) 49 every Medical other day. Branch Patient takes afrin over the counter, takes every other day oxymetazoli 2022-0 Yes 1{puff} Use 1 Puff [facility] ne HCl 9-01 in each ity of (AFRIN 09:34: nostril [place] NASAL) 49 every Medical other day. Branch Patient takes afrin over the counter, takes every other day oxymetazoli 2022-0 Yes 1{puff} Use 1 Puff [facility] ne HCl 9-01 in each ity of (AFRIN 09:34: nostril [place] NASAL) 49 every Medical other day. Branch Patient takes afrin over the counter, takes every other day oxymetazoli 2022-0 Yes 1{puff} Use 1 Puff [facility] ne HCl 9-01 in each ity of (AFRIN 09:34: nostril [place] NASAL) 49 every Medical other day. Branch Patient takes afrin over the counter, takes every other day oxymetazoli 2022-0 Yes 1{puff} Use 1 Puff [facility] ne HCl 9-01 in each ity of (AFRIN 09:34: nostril [place] NASAL) 49 every Medical other day. Branch Patient takes afrin over the counter, takes every other day oxymetazoli 2022-0 Yes 1{puff} Use 1 Puff [facility] ne HCl 9-01 in each ity of (AFRIN 09:34: nostril [place] NASAL) 49 every Medical other day. Branch Patient takes afrin over the counter, takes every other day oxymetazoli 2022-0 Yes 1{puff} Use 1 Puff [facility] ne HCl 9-01 in each ity of (AFRIN 09:34: nostril [place] NASAL) 49 every Medical other day. Branch Patient takes afrin over the counter, takes every other day oxymetazoli 2022-0 Yes 1{puff} Use 1 Puff [facility] ne HCl 9-01 in each ity of (AFRIN 09:34: nostril [place] NASAL) 49 every Medical other day. Branch Patient takes afrin over the counter, takes every other day oxymetazoli 2022-0 Yes 1{puff} Use 1 Puff [facility] ne HCl 9-01 in each ity of (AFRIN 09:34: nostril [place] NASAL) 49 every Medical other day. Branch Patient takes afrin over the counter, takes every other day oxymetazoli 2022-0 Yes 1{puff} Use 1 Puff [facility] ne HCl 9-01 in each ity of (AFRIN 09:34: nostril [place] NASAL) 49 every Medical other day. Branch Patient takes afrin over the counter, takes every other day oxymetazoli 2022-0 Yes 1{puff} Use 1 Puff [facility] ne HCl 9-01 in each ity of (AFRIN 09:34: nostril [place] NASAL) 49 every Medical other day. Branch Patient takes afrin over the counter, takes every other day oxymetazoli 2022-0 Yes 1{puff} Use 1 Puff [facility] ne HCl 9-01 in each ity of (AFRIN 09:34: nostril [place] NASAL) 49 every Medical other day. Branch Patient takes afrin over the counter, takes every other day oxymetazoli 2022-0 Yes 1{puff} Use 1 Puff [facility] ne HCl 9-01 in each ity of (AFRIN 09:34: nostril [place] NASAL) 49 every Medical other day. Branch Patient takes afrin over the counter, takes every other day oxymetazoli 2022-0 Yes 1{puff} Use 1 Puff [facility] ne HCl 9-01 in each ity of (AFRIN 09:34: nostril [place] NASAL) 49 every Medical other day. Branch Patient takes afrin over the counter, takes every other day oxymetazoli 2022-0 Yes 1{puff} Use 1 Puff [facility] ne HCl 9-01 in each ity of (AFRIN 09:34: nostril [place] NASAL) 49 every Medical other day. Branch Patient takes afrin over the counter, takes every other day oxymetazoli 2022-0 Yes 1{puff} Use 1 Puff [facility] ne HCl 9-01 in each ity of (AFRIN 09:34: nostril [place] NASAL) 49 every Medical other day. Branch Patient takes afrin over the counter, takes every other day oxymetazoli 2022-0 Yes 1{puff} Use 1 Puff [facility] ne HCl 9-01 in each ity of (AFRIN 09:34: nostril [place] NASAL) 49 every Medical other day. Branch Patient takes afrin over the counter, takes every other day oxymetazoli 2022-0 Yes 1{puff} Use 1 Puff [facility] ne HCl 9-01 in each ity of (AFRIN 09:34: nostril [place] NASAL) 49 every Medical other day. Branch Patient takes afrin over the counter, takes every other day oxymetazoli 2021-0 Yes 1{puff} Use 1 Puff [facility] ne HCl 9-01 in each ity of (AFRIN 09:34: nostril [place] NASAL) 49 every Medical other day. Branch Patient takes afrin over the counter, takes every other day oxymetazoli 2021-0 Yes 1{puff} Use 1 Puff [facility] ne HCl 9-01 in each ity of (AFR[place] 09:34: nostril [place] NASAL) 49 every Medical other day. Branch Patient takes afrin over the counter, takes every other day oxymetazoli 2-0 Yes 1{puff} Use 1 Puff [facility] ne HCl 9-01 in each ity of (AFRIN 09:34: nostril [place] NASAL) 49 every Medical other day. Branch Patient takes afrin over the counter, takes every other day oxymetazoli 2022-0 Yes 1{puff} Use 1 Puff [facility] ne HCl 9-01 in each ity of (AFRIN 09:34: nostril [place] NASAL) 49 every Medical other day. Branch Patient takes afrin over the counter, takes every other day oxymetazoli 2022-0 Yes 1{puff} Use 1 Puff [facility] ne HCl 9-01 in each ity of (AFRIN 09:34: nostril [place] NASAL) 49 every Medical other day. Branch Patient takes afrin over the counter, takes every other day oxymetazoli 2022-0 Yes 1{puff} Use 1 Puff [facility] ne HCl 9-01 in each ity of (AFRIN 09:34: nostril [place] NASAL) 49 every Medical other day. Branch Patient takes afrin over the counter, takes every other day oxymetazoli 2022-0 Yes 1{puff} Use 1 Puff [facility] ne HCl 9-01 in each ity of (AFRIN 09:34: nostril [place] NASAL) 49 every Medical other day. Branch Patient takes afrin over the counter, takes every other day oxymetazoli 2022-0 Yes 1{puff} Use 1 Puff [facility] ne HCl 9-01 in each ity of (AFRIN 09:34: nostril [place] NASAL) 49 every Medical other day. Branch Patient takes afrin over the counter, takes every other day oxymetazoli 2022-0 Yes 1{puff} Use 1 Puff [facility] ne HCl 9-01 in each ity of (AFR[place] 09:34: nostril [place] NASAL) 49 every Medical other day. Branch Patient takes afrin over the counter, takes every other day oxymetazoli 2022-0 Yes 1{puff} Use 1 Puff [facility] ne HCl 9-01 in each ity of (AFR[place] 09:34: nostril [place] NASAL) 49 every Medical other day. Branch Patient takes afrin over the counter, takes every other day oxymetazoli 2022-0 Yes 1{puff} Use 1 Puff [facility] ne HCl 9-01 in each ity of ([place]FR[place] 09:34: nostril [place] NASAL) 49 every Medical other day. Branch Patient takes afrin over the counter, takes every other day oxymetazoli 2022-0 Yes 1{puff} Use 1 Puff [facility] ne HCl 9-01 in each ity of ([facility]FR[place] 09:34: nostril [place] NASAL) 49 every Medical other day. Branch Patient takes afrin over the counter, takes every other day oxymetazoli 2022-0 Yes 1{puff} Use 1 Puff [facility] ne HCl 9-01 in each ity of (AFR[place] 09:34: nostril [place] NASAL) 49 every Medical other day. Branch Patient takes afrin over the counter, takes every other day oxymetazoli 2022-0 Yes 1{puff} Use 1 Puff [facility] ne HCl 9-01 in each ity of ([place]FR[place] 09:34: nostril [place] NASAL) 49 every Medical other day. Branch Patient takes afrin over the counter, takes every other day oxymetazoli 2022-0 Yes 1{puff} Use 1 Puff [facility] ne HCl 9-01 in each ity of ([place]FR[place] 09:34: nostril [place] NASAL) 49 every Medical other day. Branch Patient takes afrin over the counter, takes every other day oxymetazoli 2022-0 Yes 1{puff} Use 1 Puff [facility] ne HCl 9-01 in each ity of (AFRIN 09:34: nostril [place] NASAL) 49 every Medical other day. Branch Patient takes afrin over the counter, takes every other day oxymetazoli 2022-0 Yes 1{puff} Use 1 Puff [facility] ne HCl 9-01 in each ity of (AFRIN 09:34: nostril [place] NASAL) 49 every Medical other day. Branch Patient takes afrin over the counter, takes every other day oxymetazoli 2022-0 Yes 1{puff} Use 1 Puff [facility] ne HCl 9-01 in each ity of (AFR[place] 09:34: nostril [place] NASAL) 49 every Medical other day. Branch Patient takes afrin over the counter, takes every other day oxymetazoli 2022-0 Yes 1{puff} Use 1 Puff [facility] ne HCl 9-01 in each ity of (AFR[facility] 09:34: nostril [place] NASAL) 49 every Medical other day. Branch Patient takes afrin over the counter, takes every other day oxymetazoli 2022-0 Yes 1{puff} Use 1 Puff [facility] ne HCl 9-01 in each ity of (AFR[facility] 09:34: nostril [place] NASAL) 49 every Medical other day. Branch Patient takes afrin over the counter, takes every other day oxymetazoli 2022-0 Yes 1{puff} Use 1 Puff [facility] ne HCl 9-01 in each ity of ([place]FR[place] 09:34: nostril [place] NASAL) 49 every Medical other day. Branch Patient takes afrin over the counter, takes every other day oxymetazoli 2022-0 Yes 1{puff} Use 1 Puff [facility] ne HCl 9-01 in each ity of ([facility]FR[place] 09:34: nostril [place] NASAL) 49 every Medical other day. Branch Patient takes afrin over the counter, takes every other day oxymetazoli 2022-0 Yes 1{puff} Use 1 Puff [facility] ne HCl 9-01 in each ity of (AFR[facility] 09:34: nostril [place] NASAL) 49 every Medical other day. Branch Patient takes afrin over the counter, takes every other day oxymetazoli 2022-0 Yes 1{puff} Use 1 Puff [facility] ne HCl 9-01 in each ity of (AFRIN 09:34: nostril [place] NASAL) 49 every Medical other day. Branch Patient takes afrin over the counter, takes every other day oxymetazoli 2022-0 Yes 1{puff} Use 1 Puff [facility] ne HCl 9-01 in each ity of (AFR[place] 09:34: nostril [place] NASAL) 49 every Medical other day. Branch Patient takes afrin over the counter, takes every other day oxymetazoli 2022-0 Yes 1{puff} Use 1 Puff [facility] ne HCl 9-01 in each ity of (AFR[place] 09:34: nostril [place] NASAL) 49 every Medical other day. Branch Patient takes afrin over the counter, takes every other day oxymetazoli 2022-0 Yes 1{puff} Use 1 Puff [facility] ne HCl 9-01 in each ity of (AFR[facility] 09:34: nostril [place] NASAL) 49 every Medical other day. Branch Patient takes afrin over the counter, takes every other day oxymetazoli 2022-0 Yes 1{puff} Use 1 Puff [facility] ne HCl 9-01 in each ity of (AFR[facility] 09:34: nostril [place] NASAL) 49 every Medical other day. Branch Patient takes afrin over the counter, takes every other day oxymetazoli 2022-0 Yes 1{puff} Use 1 Puff [facility] ne HCl 9-01 in each ity of (AFR[facility] 09:34: nostril [place] NASAL) 49 every Medical other day. Branch Patient takes afrin over the counter, takes every other day oxymetazoli 2022-0 Yes 1{puff} Use 1 Puff [facility] ne HCl 9-01 in each ity of (AFRIN 09:34: nostril [place] NASAL) 49 every Medical other day. Branch Patient takes afrin over the counter, takes every other day oxymetazoli 2022-0 Yes 1{puff} Use 1 Puff [facility] ne HCl 9-01 in each ity of (AFRIN 09:34: nostril [place] NASAL) 49 every Medical other day. Branch Patient takes afrin over the counter, takes every other day oxymetazoli 2022-0 Yes 1{puff} Use 1 Puff [facility] ne HCl 9-01 in each ity of (AFRIN 09:34: nostril [place] NASAL) 49 every Medical other day. Branch Patient takes afrin over the counter, takes every other day oxymetazoli 2022-0 Yes 1{puff} Use 1 Puff [facility] ne HCl 9-01 in each ity of (AFRIN 09:34: nostril [place] NASAL) 49 every Medical other day. Branch Patient takes afrin over the counter, takes every other day oxymetazoli 2022-0 Yes 1{puff} Use 1 Puff [facility] ne HCl 9-01 in each ity of (AFRIN 09:34: nostril [place] NASAL) 49 every Medical other day. Branch Patient takes afrin over the counter, takes every other day oxymetazoli 2022-0 Yes 1{puff} Use 1 Puff [facility] ne HCl 9-01 in each ity of (AFRIN 09:34: nostril [place] NASAL) 49 every Medical other day. Branch Patient takes afrin over the counter, takes every other day oxymetazoli 2022-0 Yes 1{puff} Use 1 Puff [facility] ne HCl 9-01 in each ity of (AFRIN 09:34: nostril [place] NASAL) 49 every Medical other day. Branch Patient takes afrin over the counter, takes every other day oxymetazoli 2022-0 Yes 1{puff} Use 1 Puff [facility] ne HCl 9-01 in each ity of (AFRIN 09:34: nostril [place] NASAL) 49 every Medical other day. Branch Patient takes afrin over the counter, takes every other day bumetanide 2022-0 Yes 1mg Take 1 mg Un renetta 1 mg tablet 11-02 by mouth ity of 09:34: in the [place] [id number] morning. Medical Indication Branch s: reports kidney Dr Rx, ~2 mths ago bumetanide 2022-0 Yes 1mg Take 1 mg Un renetta 1 mg tablet 11-02 by mouth ity of 09:34: in the [place] [id number] morning. Medical Indication Branch s: reports kidney Dr Rx, ~2 mths ago bumetanide 2022-0 Yes 1mg Take 1 mg Un renetta 1 mg tablet 9-01 by mouth ity of 09:34: in the [place] [facility] morning. Medical Indication Branch s: reports kidney Dr Rx, ~2 mths ago bumetanide 2022-0 Yes 1mg Take 1 mg Un renetta 1 mg tablet 9-01 by mouth ity of 09:34: in the [place] [address] morning. Medical Indication Branch s: reports kidney Dr Rx, ~2 mths ago bumetanide 2022-0 Yes 1mg Take 1 mg Un renetta 1 mg tablet 9-01 by mouth ity of 09:34: in the [place] [address] morning. Medical Indication Branch s: reports kidney Dr Rx, ~2 mths ago bumetanide 2022-0 Yes 1mg Take 1 mg Un renetta 1 mg tablet 9-01 by mouth ity of 09:34: in the [place] [address] morning. Medical Indication Branch s: reports kidney Dr Rx, ~2 mths ago bumetanide 2022-0 Yes 1mg Take 1 mg Un renetta 1 mg tablet 9-01 by mouth ity of 09:34: in the [place] [address] morning. Medical Indication Branch s: reports kidney Dr Rx, ~2 mths ago bumetanide 2022-0 Yes 1mg Take 1 mg Un renetta 1 mg tablet 9-01 by mouth ity of 09:34: in the [place] [address] morning. Medical Indication Branch s: reports kidney Dr Rx, ~2 mths ago bumetanide 2022-0 Yes 1mg Take 1 mg Un renetta 1 mg tablet 9-01 by mouth ity of 09:34: in the [place] [address] morning. Medical Indication Branch s: reports kidney Dr Rx, ~2 mths ago bumetanide 2022-0 Yes 1mg Take 1 mg Un renetta 1 mg tablet 9-01 by mouth ity of 09:34: in the [place] morning. Medical Indication Branch s: reports kidney Dr Rx, ~2 mths ago bumetanide 2022-0 Yes 1mg Take 1 mg Un renetta 1 mg tablet 9-01 by mouth ity of 09:34: in the [place] [address] morning. Medical Indication Branch s: reports kidney Dr Rx, ~2 mths ago bumetanide 2022-0 Yes 1mg Take 1 mg Un renetta 1 mg tablet 9-01 by mouth ity of 09:34: in the [place] [address] morning. Medical Indication Branch s: reports kidney Dr Rx, ~2 mths ago bumetanide 2022-0 Yes 1mg Take 1 mg Un renetta 1 mg tablet 9-01 by mouth ity of 09:34: in the [place] morning. Medical Indication Branch s: reports kidney Dr Rx, ~2 mths ago bumetanide 2022-0 Yes 1mg Take 1 mg Un renetta 1 mg tablet 9-01 by mouth ity of 09:34: in the [place] [address] morning. Medical Indication Branch s: reports kidney Dr Rx, ~2 mths ago bumetanide 2022-0 Yes 1mg Take 1 mg Un renetta 1 mg tablet 9-01 by mouth ity of 09:34: in the [place] [address] morning. Medical Indication Branch s: reports kidney Dr Rx, ~2 mths ago bumetanide 2022-0 Yes 1mg Take 1 mg Un renetta 1 mg tablet 9-01 by mouth ity of 09:34: in the [place] [address] morning. Medical Indication Branch s: reports kidney Dr Rx, ~2 mths ago bumetanide 2022-0 Yes 1mg Take 1 mg Un renetta 1 mg tablet 9-01 by mouth ity of 09:34: in the [place] [address] morning. Medical Indication Branch s: reports kidney Dr Rx, ~2 mths ago bumetanide 2022-0 Yes 1mg Take 1 mg Un renetta 1 mg tablet 9-01 by mouth ity of 09:34: in the [place] [address] morning. Medical Indication Branch s: reports kidney Dr Rx, ~2 mths ago bumetanide 2022-0 Yes 1mg Take 1 mg Un renetta 1 mg tablet 9-01 by mouth ity of 09:34: in the [place] morning. Medical Indication Branch s: reports kidney Dr Rx, ~2 mths ago bumetanide 2022-0 Yes 1mg Take 1 mg Un renetta 1 mg tablet 9-01 by mouth ity of 09:34: in the [place] morning. Medical Indication Branch s: reports kidney Dr Rx, ~2 mths ago bumetanide 2022-0 Yes 1mg Take 1 mg Un renetta 1 mg tablet 9-01 by mouth ity of 09:34: in the [place] [address] morning. Medical Indication Branch s: reports kidney Dr Rx, ~2 mths ago bumetanide 2021-0 Yes 1mg Take 1 mg Un renetta 1 mg tablet 9-01 by mouth ity of 09:34: in the [place] [address] morning. Medical Indication Branch s: reports kidney Dr Rx, ~2 mths ago bumetanide 2021-0 Yes 1mg Take 1 mg Un renetta 1 mg tablet 9-01 by mouth ity of 09:34: in the [place] [address] morning. Medical Indication Branch s: reports kidney Dr Rx, ~2 mths ago bumetanide 2021-0 Yes 1mg Take 1 mg Un renetta 1 mg tablet 9-01 by mouth ity of 09:34: in the [place] [address] morning. Medical Indication Branch s: reports kidney Dr Rx, ~2 mths ago bumetanide 2021-0 Yes 1mg Take 1 mg Un renetta 1 mg tablet 9-01 by mouth ity of 09:34: in the [place] [address] morning. Medical Indication Branch s: reports kidney Dr Rx, ~2 mths ago bumetanide 2021-0 Yes 1mg Take 1 mg Un renetta 1 mg tablet 9-01 by mouth ity of 09:34: in the [place] [address] morning. Medical Indication Branch s: reports kidney Dr Rx, ~2 mths ago bumetanide 2021-0 Yes 1mg Take 1 mg Un renetta 1 mg tablet 9-01 by mouth ity of 09:34: in the [place] [address] morning. Medical Indication Branch s: reports kidney Dr Rx, ~2 mths ago bumetanide 2021-0 Yes 1mg Take 1 mg Un renetta 1 mg tablet 9-01 by mouth ity of 09:34: in the [place] [address] morning. Medical Indication Branch s: reports kidney Dr Rx, ~2 mths ago Magnesium 2021-0 Yes [id number] 400mg Take 400 [facility] Ox[facility] 420 8-24 mg by ity of mg Tab 00:00: mouth [place] 00 daily. Medical Branch acetaminoph 2021-0 Yes 2745 1{tbl} Take 1 Un renetta en-codeine 8-24 tablet by ity of (TYLENOL-CO 00:00: mouth [place] DEINE #3) 00 every 6 Medical 300-30 mg (six) Branch tablet hours as needed for Pain (scale 7-10). Indication s: acute pain, chronic pain Magnesium 2-0 Yes [id number] 400mg Take 400 [facility] Oxide 420 8-24 mg by ity of mg Tab 00:00: mouth [place] 00 daily. Medical Branch acetaminoph 2021-0 Yes 2745 1{tbl} Take 1 Un renetta en-codeine 8-24 tablet by ity of (TYLENOL-CO 00:00: mouth [place] DEINE #3) 00 every 6 Medical 300-30 mg (six) Branch tablet hours as needed for Pain (scale 7-10). Indication s: acute pain, chronic pain Magnesium 2021-0 Yes [id number] 400mg Take 400 [facility] Oxide 420 8-24 mg by ity of mg Tab 00:00: mouth [place] 00 daily. Medical Branch acetaminoph 2021-0 Yes 2745 1{tbl} Take 1 Un renetta en-codeine 8-24 tablet by ity of (TYLENOL-CO 00:00: mouth [place] DEINE #3) 00 every 6 Medical 300-30 mg (six) Branch tablet hours as needed for Pain (scale 7-10). Indication s: acute pain, chronic pain Magnesium 2021-0 Yes [id number] 400mg Take 400 [facility] Oxide 420 8-24 mg by ity of mg Tab 00:00: mouth [place] 00 daily. Medical Branch acetaminoph 2021-0 Yes 2745 1{tbl} Take 1 Un renetta en-codeine 8-24 tablet by ity of (TYLENOL-CO 00:00: mouth [place] DEINE #3) 00 every 6 Medical 300-30 mg (six) Branch tablet hours as needed for Pain (scale 7-10). Indication s: acute pain, chronic pain Magnesium 2-0 Yes [id number] 400mg Take 400 [facility] Oxide 420 8-24 mg by ity of mg Tab 00:00: mouth [place] 00 daily. Medical Branch acetaminoph 2021-0 Yes 2745 1{tbl} Take 1 Un renetta en-codeine 8-24 tablet by ity of (TYLENOL-CO 00:00: mouth [place] DEINE #3) 00 every 6 Medical 300-30 mg (six) Branch tablet hours as needed for Pain (scale 7-10). Indication s: acute pain, chronic pain Magnesium 2022-0 Yes [id number] 400mg Take 400 [facility] Oxide 420 8-24 mg by ity of mg Tab 00:00: mouth [place] 00 daily. Medical Branch acetaminoph 2021-0 Yes 2745 1{tbl} Take 1 Un renetta en-codeine 8-24 tablet by ity of (TYLENOL-CO 00:00: mouth [place] DEINE #3) 00 every 6 Medical 300-30 mg (six) Branch tablet hours as needed for Pain (scale 7-10). Indication s: acute pain, chronic pain Magnesium 2-0 Yes [id number] 400mg Take 400 [facility] Oxide 420 8-24 mg by ity of mg Tab 00:00: mouth [place] 00 daily. Medical Branch acetaminoph 2021-0 Yes 2745 1{tbl} Take 1 Un renetta en-codeine 8-24 tablet by ity of (TYLENOL-CO 00:00: mouth [place] DEINE #3) 00 every 6 Medical 300-30 mg (six) Branch tablet hours as needed for Pain (scale 7-10). Indication s: acute pain, chronic pain Magnesium 2021-0 Yes [id number] 400mg Take 400 [facility] Oxide 420 8-24 mg by ity of mg Tab 00:00: mouth [place] 00 daily. Medical Branch acetaminoph 2021-0 Yes 2745 1{tbl} Take 1 Un renetta en-codeine 8-24 tablet by ity of (TYLENOL-CO 00:00: mouth [place] DEINE #3) 00 every 6 Medical 300-30 mg (six) Branch tablet hours as needed for Pain (scale 7-10). Indication s: acute pain, chronic pain Magnesium 2-0 Yes [id number] 400mg Take 400 [facility] Oxide 420 8-24 mg by ity of mg Tab 00:00: mouth [place] 00 daily. Medical Branch acetaminoph 2021-0 Yes 2745 1{tbl} Take 1 Un renetta en-codeine 8-24 tablet by ity of (TYLENOL-CO 00:00: mouth [place] DEINE #3) 00 every 6 Medical 300-30 mg (six) Branch tablet hours as needed for Pain (scale 7-10). Indication s: acute pain, chronic pain Magnesium 2-0 Yes [id number] 400mg Take 400 [facility] Oxide 420 8-24 mg by ity of mg Tab 00:00: mouth [place] 00 daily. Medical Branch acetaminoph 2021-0 Yes 2745 1{tbl} Take 1 Un renetta en-codeine 8-24 tablet by ity of (TYLENOL-CO 00:00: mouth [place] DEINE #3) 00 every 6 Medical 300-30 mg (six) Branch tablet hours as needed for Pain (scale 7-10). Indication s: acute pain, chronic pain Magnesium 2021-0 Yes [id number] 400mg Take 400 [facility] Oxide 420 8-24 mg by ity of mg Tab 00:00: mouth [place] 00 daily. Medical Branch acetaminoph 0 Yes 2745 1{tbl} Take 1 Un renetta en-codeine 8-24 tablet by ity of (TYLENOL-CO 00:00: mouth [place] DEINE #3) 00 every 6 Medical 300-30 mg (six) Branch tablet hours as needed for Pain (scale 7-10). Indication s: acute pain, chronic pain Magnesium 2021-0 Yes [id number] 400mg Take 400 [facility] Oxide 420 8-24 mg by ity of mg Tab 00:00: mouth [place] 00 daily. Medical Branch acetaminoph 0 Yes 2745 1{tbl} Take 1 Un renetta en-codeine 8-24 tablet by ity of (TYLENOL-CO 00:00: mouth [place] DEINE #3) 00 every 6 Medical 300-30 mg (six) Branch tablet hours as needed for Pain (scale 7-10). Indication s: acute pain, chronic pain Magnesium 2021-0 Yes [id number] 400mg Take 400 [facility] Oxide 420 8-24 mg by ity of mg Tab 00:00: mouth [place] 00 daily. Medical Branch acetaminoph 2021-0 Yes 2745 1{tbl} Take 1 Un renetta en-codeine 8-24 tablet by ity of (TYLENOL-CO 00:00: mouth [place] DEINE #3) 00 every 6 Medical 300-30 mg (six) Branch tablet hours as needed for Pain (scale 7-10). Indication s: acute pain, chronic pain Magnesium 2021-0 Yes [id number] 400mg Take 400 [facility] Oxide 420 8-24 mg by ity of mg Tab 00:00: mouth [place] 00 daily. Medical Branch acetaminoph 2021-0 Yes 2745 1{tbl} Take 1 Un renetta en-codeine 8-24 tablet by ity of (TYLENOL-CO 00:00: mouth [place] DEINE #3) 00 every 6 Medical 300-30 mg (six) Branch tablet hours as needed for Pain (scale 7-10). Indication s: acute pain, chronic pain Magnesium 2-0 Yes [id number] 400mg Take 400 [facility] Oxide 420 8-24 mg by ity of mg Tab 00:00: mouth [place] 00 daily. Medical Branch acetaminoph 2021-0 Yes 2745 1{tbl} Take 1 Un renetta en-codeine 8-24 tablet by ity of (TYLENOL-CO 00:00: mouth [place] DEINE #3) 00 every 6 Medical 300-30 mg (six) Branch tablet hours as needed for Pain (scale 7-10). Indication s: acute pain, chronic pain Magnesium 2021-0 Yes [id number] 400mg Take 400 [facility] Oxide 420 8-24 mg by ity of mg Tab 00:00: mouth [place] 00 daily. Medical Branch acetaminoph 0 Yes 2745 1{tbl} Take 1 Un renetta en-codeine 8-24 tablet by ity of (TYLENOL-CO 00:00: mouth [place] DEINE #3) 00 every 6 Medical 300-30 mg (six) Branch tablet hours as needed for Pain (scale 7-10). Indication s: acute pain, chronic pain Magnesium 2021-0 Yes [id number] 400mg Take 400 [facility] Oxide 420 8-24 mg by ity of mg Tab 00:00: mouth [place] 00 daily. Medical Branch acetaminoph 2021-0 Yes 2745 1{tbl} Take 1 Un renetta en-codeine 8-24 tablet by ity of (TYLENOL-CO 00:00: mouth [place] DEINE #3) 00 every 6 Medical 300-30 mg (six) Branch tablet hours as needed for Pain (scale 7-10). Indication s: acute pain, chronic pain Magnesium 2-0 Yes [id number] 400mg Take 400 [facility] Oxide 420 8-24 mg by ity of mg Tab 00:00: mouth [place] 00 daily. Medical Branch acetaminoph 2021-0 Yes 2745 1{tbl} Take 1 Un renetta en-codeine 8-24 tablet by ity of (TYLENOL-CO 00:00: mouth [place] DEINE #3) 00 every 6 Medical 300-30 mg (six) Branch tablet hours as needed for Pain (scale 7-10). Indication s: acute pain, chronic pain Magnesium 2-0 Yes [id number] 400mg Take 400 [facility] Oxide 420 8-24 mg by ity of mg Tab 00:00: mouth [place] 00 daily. Medical Branch acetaminoph 2021-0 Yes 2745 1{tbl} Take 1 Un renetta en-codeine 8-24 tablet by ity of (TYLENOL-CO 00:00: mouth [place] DEINE #3) 00 every 6 Medical 300-30 mg (six) Branch tablet hours as needed for Pain (scale 7-10). Indication s: acute pain, chronic pain Magnesium 2021-0 Yes [id number] 400mg Take 400 [facility] Oxide 420 8-24 mg by ity of mg Tab 00:00: mouth [place] 00 daily. Medical Branch acetaminoph 2021-0 Yes 2745 1{tbl} Take 1 Un renetta en-codeine 8-24 tablet by ity of (TYLENOL-CO 00:00: mouth [place] DEINE #3) 00 every 6 Medical 300-30 mg (six) Branch tablet hours as needed for Pain (scale 7-10). Indication s: acute pain, chronic pain Magnesium 2021-0 Yes [id number] 400mg Take 400 [facility] Oxide 420 8-24 mg by ity of mg Tab 00:00: mouth [place] 00 daily. Medical Branch acetaminoph 2021-0 Yes 2745 1{tbl} Take 1 Un renetta en-codeine 8-24 tablet by ity of (TYLENOL-CO 00:00: mouth [place] DEINE #3) 00 every 6 Medical 300-30 mg (six) Branch tablet hours as needed for Pain (scale 7-10). Indication s: acute pain, chronic pain Magnesium 2-0 Yes [id number] 400mg Take 400 [facility] Oxide 420 8-24 mg by ity of mg Tab 00:00: mouth [place] 00 daily. Medical Branch acetaminoph 2021-0 Yes 2745 1{tbl} Take 1 Un renetta en-codeine 8-24 tablet by ity of (TYLENOL-CO 00:00: mouth [place] DEINE #3) 00 every 6 Medical 300-30 mg (six) Branch tablet hours as needed for Pain (scale 7-10). Indication s: acute pain, chronic pain Magnesium 2021-0 Yes [id number] 400mg Take 400 [facility] Oxide 420 8-24 mg by ity of mg Tab 00:00: mouth [place] 00 daily. Medical Branch acetaminoph 2021-0 Yes 2745 1{tbl} Take 1 Un renetta en-codeine 8-24 tablet by ity of (TYLENOL-CO 00:00: mouth [place] DEINE #3) 00 every 6 Medical 300-30 mg (six) Branch tablet hours as needed for Pain (scale 7-10). Indication s: acute pain, chronic pain Magnesium 2021-0 Yes [id number] 400mg Take 400 [facility] Oxide 420 8-24 mg by ity of mg Tab 00:00: mouth [place] 00 daily. Medical Branch Magnesium 2021-0 Yes [id number] 400mg Take 400 [facility] Oxide 420 8-24 mg by ity of mg Tab 00:00: mouth [place] 00 daily. Medical Branch Magnesium 2021-0 Yes [id number] 400mg Take 400 [facility] Oxide 420 8-24 mg by ity of mg Tab 00:00: mouth [place] 00 daily. Medical Branch Magnesium 2021-0 Yes [id number] 400mg Take 400 [facility] Ox[facility] 420 8-24 mg by ity of mg Tab 00:00: mouth [place] 00 daily. Medical Branch Magnesium 2021-0 Yes [id number] 400mg Take 400 [facility] Ox[facility] 420 8-24 mg by ity of mg Tab 00:00: mouth [place] 00 daily. Medical Branch Magnesium 2021-0 Yes [id number] 400mg Take 400 [facility] Ox[facility] 420 8-24 mg by ity of mg Tab 00:00: mouth [place] 00 daily. Medical Branch Magnesium 2021-0 Yes [id number] 400mg Take 400 [facility] Ox[facility] 420 8-24 mg by ity of mg Tab 00:00: mouth [place] 00 daily. Medical Branch Magnesium 2021-0 Yes [id number] 400mg Take 400 [facility] Oxide 420 8-24 mg by ity of mg Tab 00:00: mouth [place] 00 daily. Medical Branch Magnesium 2-0 Yes [id number] 400mg Take 400 [facility] Oxide 420 8-24 mg by ity of mg Tab 00:00: mouth [place] 00 daily. Medical Branch Magnesium 2021-0 Yes [id number] 400mg Take 400 [facility] Ox[facility] 420 8-24 mg by ity of mg Tab 00:00: mouth [place] 00 daily. Medical Branch Magnesium 2022-0 Yes [id number] 400mg Take 400 [facility] Ox[facility] 420 8-24 mg by ity of mg Tab 00:00: mouth [place] 00 daily. Medical Branch Magnesium 2-0 Yes [id number] 400mg Take 400 [facility] Ox[facility] 420 8-24 mg by ity of mg Tab 00:00: mouth [place] 00 daily. Medical Branch Magnesium 2-0 Yes [id number] 400mg Take 400 [facility] Ox[facility] 420 8-24 mg by ity of mg Tab 00:00: mouth [place] 00 daily. Medical Branch Magnesium 2021-0 Yes [id number] 400mg Take 400 [facility] Oxide 420 8-24 mg by ity of mg Tab 00:00: mouth [place] 00 daily. Medical Branch Magnesium 2-0 Yes [id number] 400mg Take 400 [facility] Oxide 420 8-24 mg by ity of mg Tab 00:00: mouth [place] 00 daily. Medical Branch Magnesium 2021-0 Yes [id number] 400mg Take 400 [facility] Ox[facility] 420 8-24 mg by ity of mg Tab 00:00: mouth [place] 00 daily. Medical Branch Magnesium 2021-0 Yes [id number] 400mg Take 400 [facility] Ox[facility] 420 8-24 mg by ity of mg Tab 00:00: mouth [place] 00 daily. Medical Branch Magnesium 2021-0 Yes [id number] 400mg Take 400 [facility] Ox[facility] 420 8-24 mg by ity of mg Tab 00:00: mouth [place] 00 daily. Medical Branch Magnesium 2021-0 Yes [id number] 400mg Take 400 [facility] Ox[facility] 420 8-24 mg by ity of mg Tab 00:00: mouth [place] 00 daily. Medical Branch Magnesium 2-0 Yes [id number] 400mg Take 400 [facility] Ox[facility] 420 8-24 mg by ity of mg Tab 00:00: mouth [place] 00 daily. Medical Branch Magnesium 2-0 Yes [id number] 400mg Take 400 [facility] Ox[facility] 420 8-24 mg by ity of mg Tab 00:00: mouth [place] 00 daily. Medical Branch Magnesium 2-0 Yes [id number] 400mg Take 400 [facility] Ox[facility] 420 8-24 mg by ity of mg Tab 00:00: mouth [place] 00 daily. Medical Branch Magnesium 2-0 Yes [id number] 400mg Take 400 [facility] Ox[facility] 420 8-24 mg by ity of mg Tab 00:00: mouth [place] 00 daily. Medical Branch Magnesium 2-0 Yes [id number] 400mg Take 400 [facility] Ox[facility] 420 8-24 mg by ity of mg Tab 00:00: mouth [place] 00 daily. Medical Branch Magnesium 2-0 Yes [id number] 400mg Take 400 [facility] Ox[facility] 420 8-24 mg by ity of mg Tab 00:00: mouth [place] 00 daily. Medical Branch Magnesium 2-0 Yes [id number] 400mg Take 400 [facility] Ox[facility] 420 8-24 mg by ity of mg Tab 00:00: mouth [place] 00 daily. Medical Branch Magnesium 2-0 Yes [id number] 400mg Take 400 [facility] Ox[facility] 420 8-24 mg by ity of mg Tab 00:00: mouth [place] 00 daily. Medical Branch Magnesium 2-0 Yes [id number] 400mg Take 400 [facility] Ox[facility] 420 8-24 mg by ity of mg Tab 00:00: mouth [place] 00 daily. Medical Branch Magnesium 2-0 Yes [id number] 400mg Take 400 [facility] Ox[facility] 420 8-24 mg by ity of mg Tab 00:00: mouth [place] 00 daily. Medical Branch Magnesium 2-0 Yes [id number] 400mg Take 400 [facility] Ox[facility] 420 8-24 mg by ity of mg Tab 00:00: mouth [place] 00 daily. Medical Branch Magnesium 2-0 Yes [id number] 400mg Take 400 [facility] Ox[facility] 420 8-24 mg by ity of mg Tab 00:00: mouth [place] 00 daily. Medical Branch Magnesium 2-0 Yes [id number] 400mg Take 400 [facility] Ox[facility] 420 8-24 mg by ity of mg Tab 00:00: mouth [place] 00 daily. Medical Branch Magnesium 2-0 Yes [id number] 400mg Take 400 [facility] Ox[facility] 420 8-24 mg by ity of mg Tab 00:00: mouth [place] 00 daily. Medical Branch Magnesium 2-0 Yes [id number] 400mg Take 400 [facility] Ox[facility] 420 8-24 mg by ity of mg Tab 00:00: mouth [place] 00 daily. Medical Branch Magnesium 2022-0 Yes [id number] 400mg Take 400 [facility] Ox[facility] 420 8-24 mg by ity of mg Tab 00:00: mouth [place] 00 daily. Medical Branch Magnesium 2022-0 Yes [id number] 400mg Take 400 [facility] Ox[facility] 420 8-24 mg by ity of mg Tab 00:00: mouth [place] 00 daily. Medical Branch Magnesium 2022-0 Yes [id number] 400mg Take 400 [facility] Ox[facility] 420 8-24 mg by ity of mg Tab 00:00: mouth [place] 00 daily. Medical Branch Magnesium 2022-0 Yes [id number] 400mg Take 400 [facility] Ox[facility] 420 8-24 mg by ity of mg Tab 00:00: mouth [place] 00 daily. Medical Branch Magnesium 2-0 Yes [id number] 400mg Take 400 [facility] Ox[facility] 420 8-24 mg by ity of mg Tab 00:00: mouth [place] 00 daily. Medical Branch Magnesium 2-0 Yes [id number] 400mg Take 400 [facility] Ox[facility] 420 8-24 mg by ity of mg Tab 00:00: mouth [place] 00 daily. Medical Branch Magnesium 2021-0 Yes [id number] 400mg Take 400 [facility] Ox[facility] 420 8-24 mg by ity of mg Tab 00:00: mouth [place] 00 daily. Medical Branch Magnesium 2021-0 Yes [id number] 400mg Take 400 [facility] Ox[facility] 420 8-24 mg by ity of mg Tab 00:00: mouth [place] 00 daily. Medical Branch Magnesium 2021-0 Yes [id number] 400mg Take 400 [facility] Ox[facility] 420 8-24 mg by ity of mg Tab 00:00: mouth [place] 00 daily. Medical Branch Magnesium 2021-0 Yes [id number] 400mg Take 400 [facility] Ox[facility] 420 8-24 mg by ity of mg Tab 00:00: mouth [place] 00 daily. Medical Branch Magnesium 2021-0 Yes [id number] 400mg Take 400 [facility] Ox[facility] 420 8-24 mg by ity of mg Tab 00:00: mouth [place] 00 daily. Medical Branch Magnesium 2021-0 Yes [id number] 400mg Take 400 [facility] Ox[facility] 420 8-24 mg by ity of mg Tab 00:00: mouth [place] 00 daily. Medical Branch Magnesium 2-0 Yes [id number] 400mg Take 400 [facility] Ox[facility] 420 8-24 mg by ity of mg Tab 00:00: mouth [place] 00 daily. Medical Branch Magnesium 2-0 Yes [id number] 400mg Take 400 [facility] Ox[facility] 420 8-24 mg by ity of mg Tab 00:00: mouth [place] 00 daily. Medical Branch Magnesium 2-0 Yes [id number] 400mg Take 400 [facility] Ox[facility] 420 8-24 mg by ity of mg Tab 00:00: mouth [place] 00 daily. Medical Branch Magnesium 2-0 Yes [id number] 400mg Take 400 [facility] Ox[facility] 420 8-24 mg by ity of mg Tab 00:00: mouth [place] 00 daily. [facility] Branch Magnesium 2-0 Yes [id number] 400mg Take 400 [facility] Ox[facility] 420 8-24 mg by ity of mg Tab 00:00: mouth [place] 00 daily. Medical Branch Magnesium 2021-0 Yes [id number] 400mg Take 400 [facility] Ox[facility] 420 8-24 mg by ity of mg Tab 00:00: mouth [place] 00 daily. Medical Branch Magnesium 2021-0 Yes [id number] 400mg Take 400 [facility] Ox[facility] 420 8-24 mg by ity of mg Tab 00:00: mouth [place] 00 daily. Medical Branch Magnesium 2021-0 Yes [id number] 400mg Take 400 [facility] Ox[facility] 420 8-24 mg by ity of mg Tab 00:00: mouth [place] 00 daily. [facility] Branch acetaminoph 2021-0 2022- No 2745 1{tbl} Take 1 [facility] en-codeine 8-24 10-21 tablet by ity of (TYLENOL-CO 00:00: 00:00 [place] DEINE #3) 00 :00 every 6 Medical 300-30 mg (six) Branch tablet hours as needed for Pain (scale 7-10). Indication s: acute pain, chronic pain triamcinolo 2021-0 Yes [id number] Apply to [facility] ne 8-10 area(s) 2 ity of acetonide 00:00: (two) [place] 0.1 % cream 00 times Medical daily. Branch Clobetasol 2021-0 Yes [id number] Apply to [facility] Propionate 8-10 area(s) 2 ity of 0.05 % 00:00: (two) [place] lotion 00 times Medical daily as Branch needed for Rash or Itching. triamcinolo 2021-0 Yes [id number] Apply to [facility] ne 8-10 area(s) 2 ity of acetonide 00:00: (two) [place] 0.1 % cream 00 times Medical daily. Branch Clobetasol 2021-0 Yes [id number] Apply to [facility] Propionate 8-10 area(s) 2 ity of 0.05 % 00:00: (two) [place] lotion 00 times Medical daily as Branch needed for Rash or Itching. triamcinolo 2021-0 Yes [id number] Apply to [facility] ne 8-10 area(s) 2 ity of acetonide 00:00: (two) [place] 0.1 % cream 00 times Medical daily. Branch Clobetasol 2021-0 Yes [id number] Apply to [facility] Propionate 8-10 area(s) 2 ity of 0.05 % 00:00: (two) [place] lotion 00 times Medical daily as Branch needed for Rash or Itching. triamcinolo 2022-0 Yes [id number] Apply to [facility] ne 8-10 area(s) 2 ity of acetonide 00:00: (two) [place] 0.1 % cream 00 times Medical daily. Branch Clobetasol 2022-0 Yes [id number] Apply to [facility] Propionate 8-10 area(s) 2 ity of 0.05 % 00:00: (two) [place] lotion 00 times Medical daily as Branch needed for Rash or Itching. triamcinolo 2022-0 Yes [id number] Apply to [facility] ne 8-10 area(s) 2 ity of acetonide 00:00: (two) [place] 0.1 % cream 00 times Medical daily. Branch Clobetasol 2022-0 Yes [id number] Apply to [facility] Propionate 8-10 area(s) 2 ity of 0.05 % 00:00: (two) [place] lotion 00 times Medical daily as Branch needed for Rash or Itching. triamcinolo 2022-0 Yes [id number] Apply to [facility] ne 8-10 area(s) 2 ity of acetonide 00:00: (two) [place] 0.1 % cream 00 times Medical daily. Branch Clobetasol 2022-0 Yes [id number] Apply to [facility] Propionate 8-10 area(s) 2 ity of 0.05 % 00:00: (two) [place] lotion 00 times Medical daily as Branch needed for Rash or Itching. triamcinolo 2022-0 Yes [id number] Apply to [facility] ne 8-10 area(s) 2 ity of acetonide 00:00: (two) [place] 0.1 % cream 00 times Medical daily. Branch Clobetasol 2022-0 Yes [id number] Apply to [facility] Propionate 8-10 area(s) 2 ity of 0.05 % 00:00: (two) [place] lotion 00 times Medical daily as Branch needed for Rash or Itching. triamcinolo 2022-0 Yes [id number] Apply to [facility] ne 8-10 area(s) 2 ity of acetonide 00:00: (two) [place] 0.1 % cream 00 times Medical daily. Branch Clobetasol 2022-0 Yes [id number] Apply to [facility] Propionate 8-10 area(s) 2 ity of 0.05 % 00:00: (two) [place] lotion 00 times Medical daily as Branch needed for Rash or Itching. triamcinolo 2022-0 Yes [id number] Apply to [facility] ne 8-10 area(s) 2 ity of acetonide 00:00: (two) [place] 0.1 % cream 00 times Medical daily. Branch Clobetasol 2022-0 Yes [id number] Apply to [facility] Propionate 8-10 area(s) 2 ity of 0.05 % 00:00: (two) [place] lotion 00 times Medical daily as Branch needed for Rash or Itching. triamcinolo 2022-0 Yes [id number] Apply to [facility] ne 8-10 area(s) 2 ity of acetonide 00:00: (two) [place] 0.1 % cream 00 times Medical daily. [facility] Clobetasol 2022-0 Yes [id number] Apply to [facility] Propionate 8-10 area(s) 2 ity of 0.05 % 00:00: (two) [place] lotion 00 times Medical daily as Branch needed for Rash or Itching. triamcinolo 2022-0 Yes [id number] Apply to [facility] ne 8-10 area(s) 2 ity of acetonide 00:00: (two) [place] 0.1 % cream 00 times Medical daily. [facility] Clobetasol 2022-0 Yes [id number] Apply to [facility] Propionate 8-10 area(s) 2 ity of 0.05 % 00:00: (two) [place] lotion 00 times Medical daily as Branch needed for Rash or Itching. triamcinolo 2022-0 Yes [id number] Apply to [facility] ne 8-10 area(s) 2 ity of acetonide 00:00: (two) [place] 0.1 % cream 00 times Medical daily. [facility] Clobetasol 2022-0 Yes [id number] Apply to [facility] Propionate 8-10 area(s) 2 ity of 0.05 % 00:00: (two) [place] lotion 00 times Medical daily as Branch needed for Rash or Itching. triamcinolo 2022-0 Yes [id number] Apply to [facility] ne 8-10 area(s) 2 ity of acetonide 00:00: (two) [place] 0.1 % cream 00 times Medical daily. [facility] Clobetasol 2022-0 Yes [id number] Apply to [facility] Propionate 8-10 area(s) 2 ity of 0.05 % 00:00: (two) [place] lotion 00 times Medical daily as Branch needed for Rash or Itching. triamcinolo 2022-0 Yes [id number] Apply to [facility] ne 8-10 area(s) 2 ity of acetonide 00:00: (two) [place] 0.1 % cream 00 times Medical daily. [facility] Clobetasol 2022-0 Yes [id number] Apply to [facility] Propionate 8-10 area(s) 2 ity of 0.05 % 00:00: (two) [place] lotion 00 times Medical daily as Branch needed for Rash or Itching. triamcinolo 2022-0 Yes [id number] Apply to [facility] ne 8-10 area(s) 2 ity of acetonide 00:00: (two) [place] 0.1 % cream 00 times Medical daily. [facility] Clobetasol 2022-0 Yes [id number] Apply to [facility] Propionate 8-10 area(s) 2 ity of 0.05 % 00:00: (two) [place] lotion 00 times Medical daily as Branch needed for Rash or Itching. triamcinolo 2022-0 Yes [id number] Apply to [facility] ne 8-10 area(s) 2 ity of acetonide 00:00: (two) [place] 0.1 % cream 00 times Medical daily. [facility] Clobetasol 2022-0 Yes [id number] Apply to [facility] Propionate 8-10 area(s) 2 ity of 0.05 % 00:00: (two) [place] lotion 00 times Medical daily as Branch needed for Rash or Itching. triamcinolo 2022-0 Yes [id number] Apply to [facility] ne 8-10 area(s) 2 ity of acetonide 00:00: (two) [place] 0.1 % cream 00 times Medical daily. [facility] Clobetasol 2022-0 Yes [id number] Apply to [facility] Propionate 8-10 area(s) 2 ity of 0.05 % 00:00: (two) [place] lotion 00 times Medical daily as Branch needed for Rash or Itching. triamcinolo 2022-0 Yes [id number] Apply to [facility] ne 8-10 area(s) 2 ity of acetonide 00:00: (two) [place] 0.1 % cream 00 times Medical daily. [facility] Clobetasol 2022-0 Yes [id number] Apply to [facility] Propionate 8-10 area(s) 2 ity of 0.05 % 00:00: (two) [place] lotion 00 times Medical daily as Branch needed for Rash or Itching. triamcinolo 2022-0 Yes [id number] Apply to [facility] ne 8-10 area(s) 2 ity of acetonide 00:00: (two) [place] 0.1 % cream 00 times Medical daily. [facility] Clobetasol 2022-0 Yes [id number] Apply to [facility] Propionate 8-10 area(s) 2 ity of 0.05 % 00:00: (two) [place] lotion 00 times Medical daily as Branch needed for Rash or Itching. triamcinolo 2022-0 Yes [id number] Apply to [facility] ne 8-10 area(s) 2 ity of acetonide 00:00: (two) [place] 0.1 % cream 00 times Medical daily. [facility] Clobetasol 2022-0 Yes [id number] Apply to [facility] Propionate 8-10 area(s) 2 ity of 0.05 % 00:00: (two) [place] lotion 00 times Medical daily as Branch needed for Rash or Itching. triamcinolo 2022-0 Yes [id number] Apply to [facility] ne 8-10 area(s) 2 ity of acetonide 00:00: (two) [place] 0.1 % cream 00 times Medical daily. [facility] Clobetasol 2022-0 Yes [id number] Apply to [facility] Propionate 8-10 area(s) 2 ity of 0.05 % 00:00: (two) [place] lotion 00 times Medical daily as Branch needed for Rash or Itching. triamcinolo 2022-0 Yes [id number] Apply to [facility] ne 8-10 area(s) 2 ity of acetonide 00:00: (two) [place] 0.1 % cream 00 times Medical daily. [facility] Clobetasol 2022-0 Yes [id number] Apply to [facility] Propionate 8-10 area(s) 2 ity of 0.05 % 00:00: (two) [place] lotion 00 times Medical daily as Branch needed for Rash or Itching. triamcinolo 2022-0 Yes [id number] Apply to [facility] ne 8-10 area(s) 2 ity of acetonide 00:00: (two) [place] 0.1 % cream 00 times Medical daily. [facility] Clobetasol 2022-0 Yes [id number] Apply to [facility] Propionate 8-10 area(s) 2 ity of 0.05 % 00:00: (two) [place] lotion 00 times Medical daily as Branch needed for Rash or Itching. triamcinolo 2022-0 Yes [id number] Apply to [facility] ne 8-10 area(s) 2 ity of acetonide 00:00: (two) [place] 0.1 % cream 00 times Medical daily. [facility] Clobetasol 2022-0 Yes [id number] Apply to [facility] Propionate 8-10 area(s) 2 ity of 0.05 % 00:00: (two) [place] lotion 00 times Medical daily as Branch needed for Rash or Itching. triamcinolo 2022-0 Yes [id number] Apply to [facility] ne 8-10 area(s) 2 ity of acetonide 00:00: (two) [place] 0.1 % cream 00 times Medical daily. [facility] Clobetasol 2022-0 Yes [id number] Apply to [facility] Propionate 8-10 area(s) 2 ity of 0.05 % 00:00: (two) [place] lotion 00 times Medical daily as Branch needed for Rash or Itching. triamcinolo 2022-0 Yes [id number] Apply to [facility] ne 8-10 area(s) 2 ity of acetonide 00:00: (two) [place] 0.1 % cream 00 times Medical daily. [facility] Clobetasol 2022-0 Yes [id number] Apply to [facility] Propionate 8-10 area(s) 2 ity of 0.05 % 00:00: (two) [place] lotion 00 times Medical daily as Branch needed for Rash or Itching. triamcinolo 2022-0 Yes [id number] Apply to [facility] ne 8-10 area(s) 2 ity of acetonide 00:00: (two) [place] 0.1 % cream 00 times Medical daily. [facility] Clobetasol 2022-0 Yes [id number] Apply to [facility] Propionate 8-10 area(s) 2 ity of 0.05 % 00:00: (two) [place] lotion 00 times Medical daily as Branch needed for Rash or Itching. triamcinolo 2022-0 Yes [id number] Apply to [facility] ne 8-10 area(s) 2 ity of acetonide 00:00: (two) [place] 0.1 % cream 00 times Medical daily. [facility] Clobetasol 2022-0 Yes [id number] Apply to [facility] Propionate 8-10 area(s) 2 ity of 0.05 % 00:00: (two) [place] lotion 00 times Medical daily as Branch needed for Rash or Itching. triamcinolo 2022-0 Yes [id number] Apply to [facility] ne 8-10 area(s) 2 ity of acetonide 00:00: (two) [place] 0.1 % cream 00 times Medical daily. [facility] Clobetasol 2022-0 Yes [id number] Apply to [facility] Propionate 8-10 area(s) 2 ity of 0.05 % 00:00: (two) [place] lotion 00 times Medical daily as Branch needed for Rash or Itching. triamcinolo 2022-0 Yes [id number] Apply to [facility] ne 8-10 area(s) 2 ity of acetonide 00:00: (two) [place] 0.1 % cream 00 times Medical daily. [facility] Clobetasol 2022-0 Yes [id number] Apply to [facility] Propionate 8-10 area(s) 2 ity of 0.05 % 00:00: (two) [place] lotion 00 times Medical daily as Branch needed for Rash or Itching. triamcinolo 2022-0 Yes [id number] Apply to [facility] ne 8-10 area(s) 2 ity of acetonide 00:00: (two) [place] 0.1 % cream 00 times Medical daily. [facility] Clobetasol 2022-0 Yes [id number] Apply to [facility] Propionate 8-10 area(s) 2 ity of 0.05 % 00:00: (two) [place] lotion 00 times Medical daily as Branch needed for Rash or Itching. triamcinolo 2022-0 Yes [id number] Apply to [facility] ne 8-10 area(s) 2 ity of acetonide 00:00: (two) [place] 0.1 % cream 00 times Medical daily. [facility] Clobetasol 2022-0 Yes [id number] Apply to [facility] Propionate 8-10 area(s) 2 ity of 0.05 % 00:00: (two) [place] lotion 00 times Medical daily as Branch needed for Rash or Itching. triamcinolo 2022-0 Yes [id number] Apply to [facility] ne 8-10 area(s) 2 ity of acetonide 00:00: (two) [place] 0.1 % cream 00 times Medical daily. [facility] Clobetasol 2022-0 Yes [id number] Apply to [facility] Propionate 8-10 area(s) 2 ity of 0.05 % 00:00: (two) [place] lotion 00 times Medical daily as Branch needed for Rash or Itching. triamcinolo 2022-0 Yes [id number] Apply to [facility] ne 8-10 area(s) 2 ity of acetonide 00:00: (two) [place] 0.1 % cream 00 times Medical daily. [facility] Clobetasol 2022-0 Yes [id number] Apply to [facility] Propionate 8-10 area(s) 2 ity of 0.05 % 00:00: (two) [place] lotion 00 times Medical daily as Branch needed for Rash or Itching. triamcinolo 2022-0 Yes [id number] Apply to [facility] ne 8-10 area(s) 2 ity of acetonide 00:00: (two) [place] 0.1 % cream 00 times Medical daily. [facility] Clobetasol 2022-0 Yes [id number] Apply to [facility] Propionate 8-10 area(s) 2 ity of 0.05 % 00:00: (two) [place] lotion 00 times Medical daily as Branch needed for Rash or Itching. triamcinolo 2022-0 Yes [id number] Apply to [facility] ne 8-10 area(s) 2 ity of acetonide 00:00: (two) [place] 0.1 % cream 00 times Medical daily. [facility] Clobetasol 2022-0 Yes [id number] Apply to [facility] Propionate 8-10 area(s) 2 ity of 0.05 % 00:00: (two) [place] lotion 00 times Medical daily as Branch needed for Rash or Itching. triamcinolo 2022-0 Yes [id number] Apply to [facility] ne 8-10 area(s) 2 ity of acetonide 00:00: (two) [place] 0.1 % cream 00 times Medical daily. [facility] Clobetasol 2022-0 Yes [id number] Apply to [facility] Propionate 8-10 area(s) 2 ity of 0.05 % 00:00: (two) [place] lotion 00 times Medical daily as Branch needed for Rash or Itching. triamcinolo 2022-0 Yes [id number] Apply to [facility] ne 8-10 area(s) 2 ity of acetonide 00:00: (two) [place] 0.1 % cream 00 times Medical daily. [facility] Clobetasol 2022-0 Yes [id number] Apply to [facility] Propionate 8-10 area(s) 2 ity of 0.05 % 00:00: (two) [place] lotion 00 times Medical daily as Branch needed for Rash or Itching. triamcinolo 2022-0 Yes [id number] Apply to [facility] ne 8-10 area(s) 2 ity of acetonide 00:00: (two) [place] 0.1 % cream 00 times Medical daily. [facility] Clobetasol 2022-0 Yes [id number] Apply to [facility] Propionate 8-10 area(s) 2 ity of 0.05 % 00:00: (two) [place] lotion 00 times Medical daily as Branch needed for Rash or Itching. triamcinolo 2022-0 Yes [id number] Apply to [facility] ne 8-10 area(s) 2 ity of acetonide 00:00: (two) [place] 0.1 % cream 00 times Medical daily. [facility] Clobetasol 2022-0 Yes [id number] Apply to [facility] Propionate 8-10 area(s) 2 ity of 0.05 % 00:00: (two) [place] lotion 00 times Medical daily as Branch needed for Rash or Itching. triamcinolo 2022-0 Yes [id number] Apply to [facility] ne 8-10 area(s) 2 ity of acetonide 00:00: (two) [place] 0.1 % cream 00 times Medical daily. Branch Clobetasol 2022-0 Yes [id number] Apply to [facility] Propionate 8-10 area(s) 2 ity of 0.05 % 00:00: (two) [place] lotion 00 times Medical daily as Branch needed for Rash or Itching. triamcinolo 2022-0 Yes [id number] Apply to [facility] ne 8-10 area(s) 2 ity of acetonide 00:00: (two) [place] 0.1 % cream 00 times Medical daily. [facility] Clobetasol 2022-0 Yes [id number] Apply to [facility] Propionate 8-10 area(s) 2 ity of 0.05 % 00:00: (two) [place] lotion 00 times Medical daily as Branch needed for Rash or Itching. triamcinolo 2022-0 Yes [id number] Apply to [facility] ne 8-10 area(s) 2 ity of acetonide 00:00: (two) [place] 0.1 % cream 00 times Medical daily. Branch Clobetasol 2022-0 Yes [id number] Apply to [facility] Propionate 8-10 area(s) 2 ity of 0.05 % 00:00: (two) [place] lotion 00 times Medical daily as Branch needed for Rash or Itching. triamcinolo 2022-0 Yes [id number] Apply to [facility] ne 8-10 area(s) 2 ity of acetonide 00:00: (two) [place] 0.1 % cream 00 times Medical daily. Branch Clobetasol 2022-0 Yes [id number] Apply to [facility] Propionate 8-10 area(s) 2 ity of 0.05 % 00:00: (two) [place] lotion 00 times Medical daily as Branch needed for Rash or Itching. triamcinolo 2022-0 Yes [id number] Apply to [facility] ne 8-10 area(s) 2 ity of acetonide 00:00: (two) [place] 0.1 % cream 00 times Medical daily. Branch Clobetasol 2022-0 Yes [id number] Apply to [facility] Propionate 8-10 area(s) 2 ity of 0.05 % 00:00: (two) [place] lotion 00 times Medical daily as Branch needed for Rash or Itching. triamcinolo 2022-0 Yes [id number] Apply to [facility] ne 8-10 area(s) 2 ity of acetonide 00:00: (two) [place] 0.1 % cream 00 times Medical daily. Branch Clobetasol 2022-0 Yes [id number] Apply to [facility] Propionate 8-10 area(s) 2 ity of 0.05 % 00:00: (two) [place] lotion 00 times Medical daily as Branch needed for Rash or Itching. triamcinolo 2022-0 Yes [id number] Apply to [facility] ne 8-10 area(s) 2 ity of acetonide 00:00: (two) [place] 0.1 % cream 00 times Medical daily. Branch Clobetasol 2022-0 Yes [id number] Apply to [facility] Propionate 8-10 area(s) 2 ity of 0.05 % 00:00: (two) [place] lotion 00 times Medical daily as Branch needed for Rash or Itching. triamcinolo 2022-0 Yes [id number] Apply to [facility] ne 8-10 area(s) 2 ity of acetonide 00:00: (two) [place] 0.1 % cream 00 times Medical daily. Branch Clobetasol 2022-0 Yes [id number] Apply to [facility] Propionate 8-10 area(s) 2 ity of 0.05 % 00:00: (two) [place] lotion 00 times Medical daily as Branch needed for Rash or Itching. triamcinolo 2022-0 Yes [id number] Apply to [facility] ne 8-10 area(s) 2 ity of acetonide 00:00: (two) [place] 0.1 % cream 00 times Medical daily. Branch Clobetasol 2022-0 Yes [id number] Apply to [facility] Propionate 8-10 area(s) 2 ity of 0.05 % 00:00: (two) [place] lotion 00 times Medical daily as Branch needed for Rash or Itching. triamcinolo 2022-0 Yes [id number] Apply to [facility] ne 8-10 area(s) 2 ity of acetonide 00:00: (two) [place] 0.1 % cream 00 times Medical daily. Branch Clobetasol 2022-0 Yes [id number] Apply to [facility] Propionate 8-10 area(s) 2 ity of 0.05 % 00:00: (two) [place] lotion 00 times Medical daily as Branch needed for Rash or Itching. triamcinolo 2022-0 Yes [id number] Apply to [facility] ne 8-10 area(s) 2 ity of acetonide 00:00: (two) [place] 0.1 % cream 00 times Medical daily. Branch Clobetasol 2022-0 Yes [id number] Apply to [facility] Propionate 8-10 area(s) 2 ity of 0.05 % 00:00: (two) [place] lotion 00 times Medical daily as Branch needed for Rash or Itching. triamcinolo 2022-0 Yes [id number] Apply to [facility] ne 8-10 area(s) 2 ity of acetonide 00:00: (two) [place] 0.1 % cream 00 times Medical daily. Branch Clobetasol 2022-0 Yes [id number] Apply to [facility] Propionate 8-10 area(s) 2 ity of 0.05 % 00:00: (two) [place] lotion 00 times Medical daily as Branch needed for Rash or Itching. triamcinolo 2022-0 Yes [id number] Apply to [facility] ne 8-10 area(s) 2 ity of acetonide 00:00: (two) [place] 0.1 % cream 00 times Medical daily. Branch Clobetasol 2022-0 Yes [id number] Apply to [facility] Propionate 8-10 area(s) 2 ity of 0.05 % 00:00: (two) [place] lotion 00 times Medical daily as Branch needed for Rash or Itching. triamcinolo 2022-0 Yes [id number] Apply to [facility] ne 8-10 area(s) 2 ity of acetonide 00:00: (two) [place] 0.1 % cream 00 times Medical daily. Branch Clobetasol 2022-0 Yes [id number] Apply to [facility] Propionate 8-10 area(s) 2 ity of 0.05 % 00:00: (two) [place] lotion 00 times Medical daily as Branch needed for Rash or Itching. triamcinolo 2022-0 Yes [id number] Apply to [facility] ne 8-10 area(s) 2 ity of acetonide 00:00: (two) [place] 0.1 % cream 00 times Medical daily. Branch Clobetasol 2022-0 Yes [id number] Apply to [facility] Propionate 8-10 area(s) 2 ity of 0.05 % 00:00: (two) [place] lotion 00 times Medical daily as Branch needed for Rash or Itching. triamcinolo 2022-0 Yes [id number] Apply to [facility] ne 8-10 area(s) 2 ity of acetonide 00:00: (two) [place] 0.1 % cream 00 times Medical daily. Branch Clobetasol 2022-0 Yes [id number] Apply to [facility] Propionate 8-10 area(s) 2 ity of 0.05 % 00:00: (two) [place] lotion 00 times Medical daily as Branch needed for Rash or Itching. triamcinolo 2022-0 Yes [id number] Apply to [facility] ne 8-10 area(s) 2 ity of acetonide 00:00: (two) [place] 0.1 % cream 00 times Medical daily. Branch Clobetasol 2022-0 Yes [id number] Apply to [facility] Propionate 8-10 area(s) 2 ity of 0.05 % 00:00: (two) [place] lotion 00 times Medical daily as Branch needed for Rash or Itching. triamcinolo 2022-0 Yes [id number] Apply to [facility] ne 8-10 area(s) 2 ity of acetonide 00:00: (two) [place] 0.1 % cream 00 times Medical daily. Branch Clobetasol 2022-0 Yes [id number] Apply to [facility] Propionate 8-10 area(s) 2 ity of 0.05 % 00:00: (two) [place] lotion 00 times Medical daily as Branch needed for Rash or Itching. triamcinolo 2022-0 Yes [id number] Apply to [facility] ne 8-10 area(s) 2 ity of acetonide 00:00: (two) [place] 0.1 % cream 00 times Medical daily. Branch Clobetasol 2022-0 Yes [id number] Apply to [facility] Propionate 8-10 area(s) 2 ity of 0.05 % 00:00: (two) [place] lotion 00 times Medical daily as Branch needed for Rash or Itching. triamcinolo 2022-0 Yes [id number] Apply to [facility] ne 8-10 area(s) 2 ity of acetonide 00:00: (two) [place] 0.1 % cream 00 times Medical daily. Branch Clobetasol 2022-0 Yes [id number] Apply to [facility] Propionate 8-10 area(s) 2 ity of 0.05 % 00:00: (two) [place] lotion 00 times Medical daily as Branch needed for Rash or Itching. triamcinolo 2022-0 Yes [id number] Apply to [facility] ne 8-10 area(s) 2 ity of acetonide 00:00: (two) [place] 0.1 % cream 00 times Medical daily. Branch Clobetasol 2022-0 Yes [id number] Apply to [facility] Propionate 8-10 area(s) 2 ity of 0.05 % 00:00: (two) [place] lotion 00 times Medical daily as Branch needed for Rash or Itching. triamcinolo 2022-0 Yes [id number] Apply to [facility] ne 8-10 area(s) 2 ity of acetonide 00:00: (two) [place] 0.1 % cream 00 times Medical daily. Branch Clobetasol 2022-0 Yes [id number] Apply to [facility] Propionate 8-10 area(s) 2 ity of 0.05 % 00:00: (two) [place] lotion 00 times Medical daily as Branch needed for Rash or Itching. triamcinolo 2022-0 Yes [id number] Apply to [facility] ne 8-10 area(s) 2 ity of acetonide 00:00: (two) [place] 0.1 % cream 00 times Medical daily. Branch Clobetasol 2022-0 Yes [id number] Apply to [facility] Propionate 8-10 area(s) 2 ity of 0.05 % 00:00: (two) [place] lotion 00 times Medical daily as Branch needed for Rash or Itching. triamcinolo 2022-0 Yes [id number] Apply to [facility] ne 8-10 area(s) 2 ity of acetonide 00:00: (two) [place] 0.1 % cream 00 times Medical daily. Branch Clobetasol 2022-0 Yes [id number] Apply to [facility] Propionate 8-10 area(s) 2 ity of 0.05 % 00:00: (two) [place] lotion 00 times Medical daily as Branch needed for Rash or Itching. triamcinolo 2022-0 Yes [id number] Apply to [facility] ne 8-10 area(s) 2 ity of acetonide 00:00: (two) [place] 0.1 % cream 00 times Medical daily. Branch Clobetasol 2022-0 Yes [id number] Apply to [facility] Propionate 8-10 area(s) 2 ity of 0.05 % 00:00: (two) [place] lotion 00 times Medical daily as Branch needed for Rash or Itching. triamcinolo 2022-0 Yes [id number] Apply to [facility] ne 8-10 area(s) 2 ity of acetonide 00:00: (two) [place] 0.1 % cream 00 times Medical daily. Branch Clobetasol 2022-0 Yes [id number] Apply to [facility] Propionate 8-10 area(s) 2 ity of 0.05 % 00:00: (two) [place] lotion 00 times Medical daily as Branch needed for Rash or Itching. triamcinolo 2022-0 Yes [id number] Apply to [facility] ne 8-10 area(s) 2 ity of acetonide 00:00: (two) [place] 0.1 % cream 00 times Medical daily. Branch Clobetasol 2022-0 Yes [id number] Apply to [facility] Propionate 8-10 area(s) 2 ity of 0.05 % 00:00: (two) [place] lotion 00 times Medical daily as Branch needed for Rash or Itching. triamcinolo 2022-0 Yes [id number] Apply to [facility] ne 8-10 area(s) 2 ity of acetonide 00:00: (two) [place] 0.1 % cream 00 times Medical daily. Branch Clobetasol 2022-0 Yes [id number] Apply to [facility] Propionate 8-10 area(s) 2 ity of 0.05 % 00:00: (two) [place] lotion 00 times Medical daily as Branch needed for Rash or Itching. triamcinolo 2022-0 Yes [id number] Apply to [facility] ne 8-10 area(s) 2 ity of acetonide 00:00: (two) [place] 0.1 % cream 00 times Medical daily. Branch Clobetasol 2022-0 Yes [id number] Apply to [facility] Propionate 8-10 area(s) 2 ity of 0.05 % 00:00: (two) [place] lotion 00 times Medical daily as Branch needed for Rash or Itching. triamcinolo 2022-0 Yes [id number] Apply to [facility] ne 8-10 area(s) 2 ity of acetonide 00:00: (two) [place] 0.1 % cream 00 times Medical daily. Branch Clobetasol 2022-0 Yes [id number] Apply to [facility] Propionate 8-10 area(s) 2 ity of 0.05 % 00:00: (two) [place] lotion 00 times Medical daily as Branch needed for Rash or Itching. triamcinolo 2022-0 Yes [id number] Apply to [facility] ne 8-10 area(s) 2 ity of acetonide 00:00: (two) [place] 0.1 % cream 00 times Medical daily. [facility] Clobetasol 2022-0 Yes [id number] Apply to [facility] Propionate 8-10 area(s) 2 ity of 0.05 % 00:00: (two) [place] lotion 00 times Medical daily as Branch needed for Rash or Itching. triamcinolo 2022-0 Yes [id number] Apply to [facility] ne 8-10 area(s) 2 ity of acetonide 00:00: (two) [place] 0.1 % cream 00 times Medical daily. Branch Clobetasol 2022-0 Yes [id number] Apply to [facility] Propionate 8-10 area(s) 2 ity of 0.05 % 00:00: (two) [place] lotion 00 times Medical daily as Branch needed for Rash or Itching. triamcinolo 2022-0 Yes [id number] Apply to [facility] ne 8-10 area(s) 2 ity of acetonide 00:00: (two) [place] 0.1 % cream 00 times Medical daily. [facility] Clobetasol 2022-0 Yes [id number] Apply to [facility] Propionate 8-10 area(s) 2 ity of 0.05 % 00:00: (two) [place] lotion 00 times Medical daily as Branch needed for Rash or Itching. triamcinolo 2022-0 Yes [id number] Apply to [facility] ne 8-10 area(s) 2 ity of acetonide 00:00: (two) [place] 0.1 % cream 00 times Medical daily. [facility] Clobetasol 2022-0 Yes [id number] Apply to [facility] Propionate 8-10 area(s) 2 ity of 0.05 % 00:00: (two) [place] lotion 00 times Medical daily as Branch needed for Rash or Itching. triamcinolo 2022-0 Yes [id number] Apply to [facility] ne 8-10 area(s) 2 ity of acetonide 00:00: (two) [place] 0.1 % cream 00 times Medical daily. [facility] Clobetasol 2022-0 Yes [id number] Apply to [facility] Propionate 8-10 area(s) 2 ity of 0.05 % 00:00: (two) [place] lotion 00 times Medical daily as Branch needed for Rash or Itching. triamcinolo 2022-0 Yes [id number] Apply to [facility] ne 8-10 area(s) 2 ity of acetonide 00:00: (two) [place] 0.1 % cream 00 times Medical daily. [facility] Clobetasol 2022-0 Yes [id number] Apply to [facility] Propionate 8-10 area(s) 2 ity of 0.05 % 00:00: (two) [place] lotion 00 times Medical daily as Branch needed for Rash or Itching. triamcinolo Yes [id number] Apply to [facility] ne 8-10 area(s) 2 ity of acetonide 00:00: (two) [place] 0.1 % cream 00 times Medical daily. [facility] Clobetasol 0 Yes [id number] Apply to [facility] Propionate 8-10 area(s) 2 ity of 0.05 % 00:00: (two) [place] lotion 00 times Medical daily as Branch needed for Rash or Itching. fluticasone Yes [id number] 2{spray Use 2 [facility] propionate 8-05 } Sprays in ity of 50 00:00: each [place] mcg/actuati 00 nostril in Me dical on nasal the Branch spray morning. fluticasone Yes [id number] 2{spray Use 2 [facility] propionate 8-05 } Sprays in ity of 50 00:00: each [place] mcg/actuati 00 nostril in Me dical on nasal the Branch spray morning. fluticasone 0 Yes [id number] 2{spray Use 2 [facility] propionate 8-05 } Sprays in ity of 50 00:00: each [place] mcg/actuati 00 nostril in Me dical on nasal the Branch spray morning. fluticasone 0 Yes [id number] 2{spray Use 2 [facility] propionate 8-05 } Sprays in ity of 50 00:00: each [place] mcg/actuati 00 nostril in Me dical on nasal the Branch spray morning. fluticasone 0 Yes [id number] 2{spray Use 2 [facility] propionate 8-05 } Sprays in ity of 50 00:00: each [place] mcg/actuati 00 nostril in Me dical on nasal the Branch spray morning. fluticasone 0 Yes [id number] 2{spray Use 2 [facility] propionate 8-05 } Sprays in ity of 50 00:00: each [place] mcg/actuati 00 nostril in Me dical on nasal the Branch spray morning. fluticasone 0 Yes [id number] 2{spray Use 2 [facility] propionate 8-05 } Sprays in ity of 50 00:00: each [place] mcg/actuati 00 nostril in Me dical on nasal the Branch spray morning. fluticasone 2021-0 Yes [id number] 2{spray Use 2 [facility] propionate 8-05 } Sprays in ity of 50 00:00: each [place] mcg/actuati 00 nostril in Me dical on nasal the Branch spray morning. fluticasone 2021-0 Yes [id number] 2{spray Use 2 [facility] propionate 8-05 } Sprays in ity of 50 00:00: each [place] mcg/actuati 00 nostril in Me dical on nasal the Branch spray morning. fluticasone 2021-0 Yes [id number] 2{spray Use 2 [facility] propionate 8-05 } Sprays in ity of 50 00:00: each [place] mcg/actuati 00 nostril in Me dical on nasal the Branch spray morning. fluticasone 0 Yes [id number] 2{spray Use 2 [facility] propionate 8-05 } Sprays in ity of 50 00:00: each [place] mcg/actuati 00 nostril in Me dical on nasal the Branch spray morning. fluticasone 2021-0 Yes [id number] 2{spray Use 2 [facility] propionate 8-05 } Sprays in ity of 50 00:00: each [place] mcg/actuati 00 nostril in Me dical on nasal the Branch spray morning. fluticasone 2021-0 Yes [id number] 2{spray Use 2 [facility] propionate 8-05 } Sprays in ity of 50 00:00: each [place] mcg/actuati 00 nostril in Me dical on nasal the Branch spray morning. fluticasone 2021-0 Yes [id number] 2{spray Use 2 [facility] propionate 8-05 } Sprays in ity of 50 00:00: each [place] mcg/actuati 00 nostril in Me dical on nasal the Branch spray morning. fluticasone 2021-0 Yes [id number] 2{spray Use 2 [facility] propionate 8-05 } Sprays in ity of 50 00:00: each [place] mcg/actuati 00 nostril in Me dical on nasal the Branch spray morning. fluticasone 2021-0 Yes [id number] 2{spray Use 2 [facility] propionate 8-05 } Sprays in ity of 50 00:00: each [place] mcg/actuati 00 nostril in Me dical on nasal the Branch spray morning. fluticasone 2021-0 Yes [id number] 2{spray Use 2 [facility] propionate 8-05 } Sprays in ity of 50 00:00: each [place] mcg/actuati 00 nostril in Me dical on nasal the Branch spray morning. fluticasone 2021-0 Yes [id number] 2{spray Use 2 [facility] propionate 8-05 } Sprays in ity of 50 00:00: each [place] mcg/actuati 00 nostril in Me dical on nasal the Branch spray morning. fluticasone 2021-0 Yes [id number] 2{spray Use 2 [facility] propionate 8-05 } Sprays in ity of 50 00:00: each [place] mcg/actuati 00 nostril in Me dical on nasal the Branch spray morning. fluticasone 2021-0 Yes [id number] 2{spray Use 2 [facility] propionate 8-05 } Sprays in ity of 50 00:00: each [place] mcg/actuati 00 nostril in Me dical on nasal the Branch spray morning. fluticasone 2021-0 Yes [id number] 2{spray Use 2 [facility] propionate 8-05 } Sprays in ity of 50 00:00: each [place] mcg/actuati 00 nostril in Me dical on nasal the Branch spray morning. fluticasone 2021-0 Yes [id number] 2{spray Use 2 [facility] propionate 8-05 } Sprays in ity of 50 00:00: each [place] mcg/actuati 00 nostril in Me dical on nasal the Branch spray morning. fluticasone 2021-0 Yes [id number] 2{spray Use 2 [facility] propionate 8-05 } Sprays in ity of 50 00:00: each [place] mcg/actuati 00 nostril in Me dical on nasal the Branch spray morning. fluticasone 2021-0 Yes [id number] 2{spray Use 2 [facility] propionate 8-05 } Sprays in ity of 50 00:00: each [place] mcg/actuati 00 nostril in Me dical on nasal the Branch spray morning. fluticasone 2021-0 Yes [id number] 2{spray Use 2 [facility] propionate 8-05 } Sprays in ity of 50 00:00: each [place] mcg/actuati 00 nostril in Me dical on nasal the Branch spray morning. fluticasone 2021-0 Yes [id number] 2{spray Use 2 [facility] propionate 8-05 } Sprays in ity of 50 00:00: each [place] mcg/actuati 00 nostril in Me dical on nasal the Branch spray morning. fluticasone 2021-0 Yes [id number] 2{spray Use 2 [facility] propionate 8-05 } Sprays in ity of 50 00:00: each [place] mcg/actuati 00 nostril in Me dical on nasal the Branch spray morning. fluticasone 2021-0 Yes [id number] 2{spray Use 2 [facility] propionate 8-05 } Sprays in ity of 50 00:00: each [place] mcg/actuati 00 nostril in Me dical on nasal the Branch spray morning. fluticasone 2021-0 Yes [id number] 2{spray Use 2 [facility] propionate 8-05 } Sprays in ity of 50 00:00: each [place] mcg/actuati 00 nostril in Me dical on nasal the Branch spray morning. fluticasone 2021-0 Yes [id number] 2{spray Use 2 [facility] propionate 8-05 } Sprays in ity of 50 00:00: each [place] mcg/actuati 00 nostril in Me dical on nasal the Branch spray morning. fluticasone 2021-0 Yes [id number] 2{spray Use 2 [facility] propionate 8-05 } Sprays in ity of 50 00:00: each [place] mcg/actuati 00 nostril in Me dical on nasal the Branch spray morning. fluticasone 2021-0 Yes [id number] 2{spray Use 2 [facility] propionate 8-05 } Sprays in ity of 50 00:00: each [place] mcg/actuati 00 nostril in Me dical on nasal the Branch spray morning. fluticasone 2021-0 Yes [id number] 2{spray Use 2 [facility] propionate 8-05 } Sprays in ity of 50 00:00: each [place] mcg/actuati 00 nostril in Me dical on nasal the Branch spray morning. fluticasone 2021-0 Yes [id number] 2{spray Use 2 [facility] propionate 8-05 } Sprays in ity of 50 00:00: each [place] mcg/actuati 00 nostril in Me dical on nasal the Branch spray morning. fluticasone 2021-0 Yes [id number] 2{spray Use 2 [facility] propionate 8-05 } Sprays in ity of 50 00:00: each [place] mcg/actuati 00 nostril in Me dical on nasal the Branch spray morning. fluticasone 2021-0 Yes [id number] 2{spray Use 2 [facility] propionate 8-05 } Sprays in ity of 50 00:00: each [place] mcg/actuati 00 nostril in Me dical on nasal the Branch spray morning. fluticasone 2021-0 Yes [id number] 2{spray Use 2 [facility] propionate 8-05 } Sprays in ity of 50 00:00: each [place] mcg/actuati 00 nostril in Me dical on nasal the Branch spray morning. fluticasone 2021-0 Yes [id number] 2{spray Use 2 [facility] propionate 8-05 } Sprays in ity of 50 00:00: each [place] mcg/actuati 00 nostril in Me dical on nasal the Branch spray morning. fluticasone 2021-0 Yes [id number] 2{spray Use 2 [facility] propionate 8-05 } Sprays in ity of 50 00:00: each [place] mcg/actuati 00 nostril in Me dical on nasal the Branch spray morning. fluticasone 2021-0 Yes [id number] 2{spray Use 2 [facility] propionate 8-05 } Sprays in ity of 50 00:00: each [place] mcg/actuati 00 nostril in Me dical on nasal the Branch spray morning. fluticasone 2021-0 Yes [id number] 2{spray Use 2 [facility] propionate 8-05 } Sprays in ity of 50 00:00: each [place] mcg/actuati 00 nostril in Me dical on nasal the Branch spray morning. fluticasone 2021-0 Yes [id number] 2{spray Use 2 [facility] propionate 8-05 } Sprays in ity of 50 00:00: each [place] mcg/actuati 00 nostril in Me dical on nasal the Branch spray morning. fluticasone 2021-0 Yes [id number] 2{spray Use 2 [facility] propionate 8-05 } Sprays in ity of 50 00:00: each [place] mcg/actuati 00 nostril in Me dical on nasal the Branch spray morning. fluticasone 0 Yes [id number] 2{spray Use 2 [facility] propionate 8-05 } Sprays in ity of 50 00:00: each [place] mcg/actuati 00 nostril in Me dical on nasal the Branch spray morning. fluticasone 0 Yes [id number] 2{spray Use 2 [facility] propionate 8-05 } Sprays in ity of 50 00:00: each [place] mcg/actuati 00 nostril in Me dical on nasal the Branch spray morning. fluticasone 0 Yes [id number] 2{spray Use 2 [facility] propionate 8-05 } Sprays in ity of 50 00:00: each [place] mcg/actuati 00 nostril in Me dical on nasal the Branch spray morning. fluticasone 0 Yes [id number] 2{spray Use 2 [facility] propionate 8-05 } Sprays in ity of 50 00:00: each [place] mcg/actuati 00 nostril in Me dical on nasal the Branch spray morning. fluticasone 2021-0 Yes [id number] 2{spray Use 2 [facility] propionate 8-05 } Sprays in ity of 50 00:00: each [place] mcg/actuati 00 nostril in Me dical on nasal the Branch spray morning. fluticasone 2021-0 Yes [id number] 2{spray Use 2 [facility] propionate 8-05 } Sprays in ity of 50 00:00: each [place] mcg/actuati 00 nostril in Me dical on nasal the Branch spray morning. fluticasone 2021-0 Yes [id number] 2{spray Use 2 [facility] propionate 8-05 } Sprays in ity of 50 00:00: each [place] mcg/actuati 00 nostril in Me dical on nasal the Branch spray morning. fluticasone 2021-0 Yes [id number] 2{spray Use 2 [facility] propionate 8-05 } Sprays in ity of 50 00:00: each [place] mcg/actuati 00 nostril in Me dical on nasal the Branch spray morning. fluticasone 2021-0 Yes [id number] 2{spray Use 2 [facility] propionate 8-05 } Sprays in ity of 50 00:00: each [place] mcg/actuati 00 nostril in Me dical on nasal the Branch spray morning. fluticasone 2021-0 Yes [id number] 2{spray Use 2 [facility] propionate 8-05 } Sprays in ity of 50 00:00: each [place] mcg/actuati 00 nostril in Me dical on nasal the Branch spray morning. fluticasone 0 Yes [id number] 2{spray Use 2 [facility] propionate 8-05 } Sprays in ity of 50 00:00: each [place] mcg/actuati 00 nostril in Me dical on nasal the Branch spray morning. fluticasone 2021-0 Yes [id number] 2{spray Use 2 [facility] propionate 8-05 } Sprays in ity of 50 00:00: each [place] mcg/actuati 00 nostril in Me dical on nasal the Branch spray morning. fluticasone 2021-0 Yes [id number] 2{spray Use 2 [facility] propionate 8-05 } Sprays in ity of 50 00:00: each [place] mcg/actuati 00 nostril in Me dical on nasal the Branch spray morning. fluticasone 2021-0 Yes [id number] 2{spray Use 2 [facility] propionate 8-05 } Sprays in ity of 50 00:00: each [place] mcg/actuati 00 nostril in Me dical on nasal the Branch spray morning. fluticasone 2021-0 Yes [id number] 2{spray Use 2 [facility] propionate 8-05 } Sprays in ity of 50 00:00: each [place] mcg/actuati 00 nostril in Me dical on nasal the Branch spray morning. fluticasone 2021-0 Yes [id number] 2{spray Use 2 [facility] propionate 8-05 } Sprays in ity of 50 00:00: each [place] mcg/actuati 00 nostril in Me dical on nasal the Branch spray morning. fluticasone 2021-0 Yes [id number] 2{spray Use 2 [facility] propionate 8-05 } Sprays in ity of 50 00:00: each [place] mcg/actuati 00 nostril in Me dical on nasal the Branch spray morning. fluticasone 2021-0 Yes [id number] 2{spray Use 2 [facility] propionate 8-05 } Sprays in ity of 50 00:00: each [place] mcg/actuati 00 nostril in Me dical on nasal the Branch spray morning. fluticasone 0 Yes [id number] 2{spray Use 2 [facility] propionate 8-05 } Sprays in ity of 50 00:00: each [place] mcg/actuati 00 nostril in Me dical on nasal the Branch spray morning. fluticasone 0 Yes [id number] 2{spray Use 2 [facility] propionate 8-05 } Sprays in ity of 50 00:00: each [place] mcg/actuati 00 nostril in Me dical on nasal the Branch spray morning. fluticasone 0 Yes [id number] 2{spray Use 2 [facility] propionate 8-05 } Sprays in ity of 50 00:00: each [place] mcg/actuati 00 nostril in Me dical on nasal the Branch spray morning. fluticasone 0 Yes [id number] 2{spray Use 2 [facility] propionate 8-05 } Sprays in ity of 50 00:00: each [place] mcg/actuati 00 nostril in Me dical on nasal the Branch spray morning. fluticasone 0 Yes [id number] 2{spray Use 2 [facility] propionate 8-05 } Sprays in ity of 50 00:00: each [place] mcg/actuati 00 nostril in Me dical on nasal the Branch spray morning. fluticasone 0 Yes [id number] 2{spray Use 2 [facility] propionate 8-05 } Sprays in ity of 50 00:00: each [place] mcg/actuati 00 nostril in Me dical on nasal the Branch spray morning. fluticasone 0 Yes [id number] 2{spray Use 2 [facility] propionate 8-05 } Sprays in ity of 50 00:00: each [place] mcg/actuati 00 nostril in Me dical on nasal the Branch spray morning. fluticasone 0 Yes [id number] 2{spray Use 2 [facility] propionate 8-05 } Sprays in ity of 50 00:00: each [place] mcg/actuati 00 nostril in Me dical on nasal the Branch spray morning. fluticasone 0 Yes [id number] 2{spray Use 2 [facility] propionate 8-05 } Sprays in ity of 50 00:00: each [place] mcg/actuati 00 nostril in Me dical on nasal the Branch spray morning. fluticasone Yes [id number] 2{spray Use 2 [facility] propionate 8-05 } Sprays in ity of 50 00:00: each [place] mcg/actuati 00 nostril in Me dical on nasal the Branch spray morning. fluticasone 0 Yes [id number] 2{spray Use 2 [facility] propionate 8-05 } Sprays in ity of 50 00:00: each [place] mcg/actuati 00 nostril in Me dical on nasal the Branch spray morning. fluticasone Yes [id number] 2{spray Use 2 [facility] propionate 8-05 } Sprays in ity of 50 00:00: each [place] mcg/actuati 00 nostril in Me dical on nasal the Branch spray morning. fluticasone Yes [id number] 2{spray Use 2 [facility] propionate 8-05 } Sprays in ity of 50 00:00: each [place] mcg/actuati 00 nostril in Me dical on nasal the Branch spray morning. fluticasone Yes [id number] 2{spray Use 2 [facility] propionate 8-05 } Sprays in ity of 50 00:00: each [place] mcg/actuati 00 nostril in Me dical on nasal the Branch spray morning. fluticasone 0 Yes [id number] 2{spray Use 2 [facility] propionate 8-05 } Sprays in ity of 50 00:00: each [place] mcg/actuati 00 nostril in Me dical on nasal the Branch spray morning. fluticasone 0 Yes [id number] 2{spray Use 2 [facility] propionate 8-05 } Sprays in ity of 50 00:00: each [place] mcg/actuati 00 nostril in Me dical on nasal the Branch spray morning. doxepin 25 2021-0 Yes [id number] 25mg Take 1 [facility] mg capsule 8-03 capsule by ity of 00:00: mouth at [place] 00 bedtime. [facility] doxepin 25 2021-0 Yes [id number] 25mg Take 1 [facility] mg capsule 8-03 capsule by ity of 00:00: mouth at [place] 00 bedtime. [facility] doxepin 25 2021-0 Yes [id number] 25mg Take 1 [facility] mg capsule 8-03 capsule by ity of 00:00: mouth at [place] 00 bedtime. [facility] doxepin Yes [id number] 25mg Take 1 [facility] mg capsule 8-03 capsule by ity of 00:00: mouth at [place] [address] bedtime. [facility] doxepin Yes [id number] 25mg Take 1 [facility] mg capsule 8-03 capsule by ity of 00:00: mouth at [place] [address] bedtime. [facility] doxepin Yes [id number] 25mg Take 1 [facility] mg capsule 8-03 capsule by ity of 00:00: mouth at [place] [address] bedtime. [facility] doxepin Yes [id number] 25mg Take 1 [facility] mg capsule 8-03 capsule by ity of 00:00: mouth at [place] [address] bedtime. [facility] doxepin Yes [id number] 25mg Take 1 [facility] mg capsule 8-03 capsule by ity of 00:00: mouth at [place] [address] bedtime. [facility] doxepin Yes [id number] 25mg Take 1 [facility] mg capsule 8-03 capsule by ity of 00:00: mouth at [place] [address] bedtime. [facility] doxepin Yes [id number] 25mg Take 1 [facility] mg capsule 8-03 capsule by ity of 00:00: mouth at [place] [address] bedtime. [facility] doxepin Yes [id number] 25mg Take 1 [facility] mg capsule 8-03 capsule by ity of 00:00: mouth at [place] [address] bedtime. [facility] doxepin Yes [id number] 25mg Take 1 [facility] mg capsule 8-03 capsule by ity of 00:00: mouth at [place] [address] bedtime. [facility] doxepin Yes [id number] 25mg Take 1 [facility] mg capsule 8-03 capsule by ity of 00:00: mouth at [place] [address] bedtime. [facility] doxepin 25 Yes [id number] 25mg Take 1 [facility] mg capsule 8-03 capsule by ity of 00:00: mouth at [place] [address] bedtime. [facility] doxepin 25 Yes [id number] 25mg Take 1 [facility] mg capsule 8-03 capsule by ity of 00:00: mouth at [place] [address] bedtime. [facility] doxepin 25 2-0 Yes [id number] 25mg Take 1 [facility] mg capsule 8-03 capsule by ity of 00:00: mouth at [place] 00 bedtime. [facility] doxepin Yes [id number] 25mg Take 1 [facility] mg capsule 8-03 capsule by ity of 00:00: mouth at [place] 00 bedtime. [facility] doxepin Yes [id number] 25mg Take 1 [facility] mg capsule 8-03 capsule by ity of 00:00: mouth at [place] 00 bedtime. [facility] doxepin Yes [id number] 25mg Take 1 [facility] mg capsule 8-03 capsule by ity of 00:00: mouth at [place] [address] bedtime. [facility] doxepin Yes [id number] 25mg Take 1 [facility] mg capsule 8-03 capsule by ity of 00:00: mouth at [place] [address] bedtime. [facility] doxepin Yes [id number] 25mg Take 1 [facility] mg capsule 8-03 capsule by ity of 00:00: mouth at [place] [address] bedtime. [facility] doxepin Yes [id number] 25mg Take 1 [facility] mg capsule 8-03 capsule by ity of 00:00: mouth at [place] [address] bedtime. [facility] doxepin Yes [id number] 25mg Take 1 [facility] mg capsule 8-03 capsule by ity of 00:00: mouth at [place] [address] bedtime. [facility] doxepin Yes [id number] 25mg Take 1 [facility] mg capsule 8-03 capsule by ity of 00:00: mouth at [place] [address] bedtime. [facility] doxepin Yes [id number] 25mg Take 1 [facility] mg capsule 8-03 capsule by ity of 00:00: mouth at [place] [address] bedtime. [facility] doxepin Yes [id number] 25mg Take 1 [facility] mg capsule 8-03 capsule by ity of 00:00: mouth at [place] [address] bedtime. [facility] doxepin Yes [id number] 25mg Take 1 [facility] mg capsule 8-03 capsule by ity of 00:00: mouth at [place] [address] bedtime. [facility] doxepin Yes [id number] 25mg Take 1 [facility] mg capsule 8-03 capsule by ity of 00:00: mouth at [place] 00 bedtime. [facility] doxepin 25 2021-0 Yes [id number] 25mg Take 1 [facility] mg capsule 8-03 capsule by ity of 00:00: mouth at [place] 00 bedtime. [facility] doxepin 25 2021-0 Yes [id number] 25mg Take 1 [facility] mg capsule 8-03 capsule by ity of 00:00: mouth at [place] 00 bedtime. [facility] doxepin 25 2021-0 2022- No [id number] 25mg Take 1 [facility] mg capsule 8-03 11-08 capsule by it y of 00:00: 00:00 mouth at [place] 00 :00 bedtime. [facility] benzonatate 0 Yes [id number] 100mg Take 1 [facility] (TESSALON 7-29 capsule by itJerel) 100 00:00: mouth [place] mg capsule 00 every 8 Medica l (eight) Branch hours as needed for Cough. arformotero 2021-0 Yes 15ug Use 2 mL Un renetta L 15 mcg/2 7-29 as ity of mL 00:00: directed [place] nebulizer 00 in the Medical solution morning Branch and 2 mL in the evening. budesonide 0 Yes .25mg Inhale 2 Un renetta 0.25 mg/2 7-29 mL in the ity o f mL 00:00: morning [place] nebulizer 00 and 2 mL Medica l solution in the Branch evening. benzonatate 2021-0 Yes [id number] 100mg Take 1 [facility] (TESSALON 7-29 capsule by itJerel) 100 00:00: mouth [place] mg capsule 00 every 8 Medica l (eight) Branch hours as needed for Cough. arformotero 2021-0 Yes 15ug Use 2 mL Un renetta L 15 mcg/2 7-29 as ity of mL 00:00: directed [place] nebulizer 00 in the Medical solution morning Branch and 2 mL in the evening. budesonide 0 Yes .25mg Inhale 2 Un renetta 0.25 mg/2 7-29 mL in the ity o f mL 00:00: morning [place] nebulizer 00 and 2 mL Medica l solution in the Branch evening. benzonatate 2021-0 Yes [id number] 100mg Take 1 [facility] (TESSALON 7-29 capsule by ity of PERLDress Code) 100 00:00: mouth [place] mg capsule 00 every 8 Medica l (eight) Branch hours as needed for Cough. arformotero 2022-0 Yes 15ug Use 2 mL Un renetta L 15 mcg/2 7-29 as ity of mL 00:00: directed [place] nebulizer 00 in the Medical solution morning Branch and 2 mL in the evening. budesonide 2022-0 Yes .25mg Inhale 2 Un renetta 0.25 mg/2 7-29 mL in the ity o f mL 00:00: morning [place] nebulizer 00 and 2 mL Medica l solution in the Branch evening. benzonatate 2022-0 Yes [id number] 100mg Take 1 [facility] (TESSALON 7-29 capsule by [employer]) 100 00:00: mouth [place] mg capsule 00 every 8 Medica l (eight) Branch hours as needed for Cough. arformotero 2022-0 Yes 15ug Use 2 mL Un renetta L 15 mcg/2 7-29 as ity of mL 00:00: directed [place] nebulizer 00 in the Medical solution morning Branch and 2 mL in the evening. budesonide 2022-0 Yes .25mg Inhale 2 Un renetta 0.25 mg/2 7-29 mL in the ity o f mL 00:00: morning [place] nebulizer 00 and 2 mL Medica l solution in the Branch evening. benzonatate 2022-0 Yes [id number] 100mg Take 1 [facility] (TESSALON 7-29 capsule by itrohan of TASHDress Code) 100 00:00: mouth [place] mg capsule 00 every 8 Medica l (eight) Branch hours as needed for Cough. arformotero 2022-0 Yes 15ug Use 2 mL Un renetta L 15 mcg/2 7-29 as ity of mL 00:00: directed [place] nebulizer 00 in the Medical solution morning Branch and 2 mL in the evening. budesonide 2022-0 Yes .25mg Inhale 2 Un renetta 0.25 mg/2 7-29 mL in the ity o f mL 00:00: morning [place] nebulizer 00 and 2 mL Medica l solution in the Branch evening. benzonatate 2022-0 Yes [id number] 100mg Take 1 [facility] (TESSALON 7-29 capsule by itrohan of BRAD) 100 00:00: mouth [place] mg capsule 00 every 8 Medica l (eight) Branch hours as needed for Cough. arformotero 2022-0 Yes 15ug Use 2 mL Un renetta L 15 mcg/2 7-29 as ity of mL 00:00: directed [place] nebulizer 00 in the Medical solution morning Branch and 2 mL in the evening. budesonide 2022-0 Yes .25mg Inhale 2 Un renetta 0.25 mg/2 7-29 mL in the ity o f mL 00:00: morning [place] nebulizer 00 and 2 mL Medica l solution in the Branch evening. benzonatate 2022-0 Yes [id number] 100mg Take 1 [facility] (TESSALON 7-29 capsule by itrohan of BRAD) 100 00:00: mouth [place] mg capsule 00 every 8 Medica l (eight) Branch hours as needed for Cough. arformotero 2022-0 Yes 15ug Use 2 mL Un renetta L 15 mcg/2 7-29 as ity of mL 00:00: directed [place] nebulizer 00 in the Medical solution morning Branch and 2 mL in the evening. budesonide 2022-0 Yes .25mg Inhale 2 Un renetta 0.25 mg/2 7-29 mL in the ity o f mL 00:00: morning [place] nebulizer 00 and 2 mL Medica l solution in the Branch evening. benzonatate 2022-0 Yes [id number] 100mg Take 1 [facility] (TESSALON 7-29 capsule by itrohan of BRAD) 100 00:00: mouth [place] mg capsule 00 every 8 Medica l (eight) Branch hours as needed for Cough. arformotero 2022-0 Yes 15ug Use 2 mL Un renetta L 15 mcg/2 7-29 as ity of mL 00:00: directed [place] nebulizer 00 in the Medical solution morning Branch and 2 mL in the evening. budesonide 2022-0 Yes .25mg Inhale 2 Un renetta 0.25 mg/2 7-29 mL in the ity o f mL 00:00: morning [place] nebulizer 00 and 2 mL Medica l solution in the Branch evening. benzonatate 2022-0 Yes [id number] 100mg Take 1 [facility] (TESSALON 7-29 capsule by itrohan of BRAD) 100 00:00: mouth [place] mg capsule 00 every 8 Medica l (eight) Branch hours as needed for Cough. arformotero 2022-0 Yes 15ug Use 2 mL Un renetta L 15 mcg/2 7-29 as ity of mL 00:00: directed [place] nebulizer 00 in the Medical solution morning Branch and 2 mL in the evening. budesonide 2022-0 Yes .25mg Inhale 2 Un renetta 0.25 mg/2 7-29 mL in the ity o f mL 00:00: morning [place] nebulizer 00 and 2 mL Medica l solution in the Branch evening. benzonatate 2022-0 Yes [id number] 100mg Take 1 [facility] (TESSALON 7-29 capsule by ity of PERLDress Code) 100 00:00: mouth [place] mg capsule 00 every 8 Medica l (eight) Branch hours as needed for Cough. arformotero 2-0 Yes 15ug Use 2 mL Un renetta L 15 mcg/2 7-29 as ity of mL 00:00: directed [place] nebulizer 00 in the Medical solution morning Branch and 2 mL in the evening. budesonide 2-0 Yes .25mg Inhale 2 Un renetta 0.25 mg/2 7-29 mL in the ity o f mL 00:00: morning [place] nebulizer 00 and 2 mL Medica l solution in the Branch evening. benzonatate 2022-0 Yes [id number] 100mg Take 1 [facility] (TESSALON 7-29 capsule by itrohan of PERLTIFFANY) 100 00:00: mouth [place] mg capsule 00 every 8 Medica l (eight) Branch hours as needed for Cough. arformotero 2022-0 Yes 15ug Use 2 mL Un renetta L 15 mcg/2 7-29 as ity of mL 00:00: directed [place] nebulizer 00 in the Medical solution morning Branch and 2 mL in the evening. budesonide 2022-0 Yes .25mg Inhale 2 Un renetta 0.25 mg/2 7-29 mL in the ity o f mL 00:00: morning [place] nebulizer 00 and 2 mL Medica l solution in the Branch evening. benzonatate 2022-0 Yes [id number] 100mg Take 1 [facility] (TESSALON 7-29 capsule by ity of PERLTIFFANY) 100 00:00: mouth [place] mg capsule 00 every 8 Medica l (eight) Branch hours as needed for Cough. arformotero 2022-0 Yes 15ug Use 2 mL Un renetta L 15 mcg/2 7-29 as ity of mL 00:00: directed [place] nebulizer 00 in the Medical solution morning Branch and 2 mL in the evening. budesonide 2022-0 Yes .25mg Inhale 2 Un renetta 0.25 mg/2 7-29 mL in the ity o f mL 00:00: morning [place] nebulizer 00 and 2 mL Medica l solution in the Branch evening. benzonatate 2022-0 Yes [id number] 100mg Take 1 [facility] (TESSALON 7-29 capsule by itrohan of BRAD) 100 00:00: mouth [place] mg capsule 00 every 8 Medica l (eight) Branch hours as needed for Cough. arformotero 2022-0 Yes 15ug Use 2 mL Un renetta L 15 mcg/2 7-29 as ity of mL 00:00: directed [place] nebulizer 00 in the Medical solution morning Branch and 2 mL in the evening. budesonide 2022-0 Yes .25mg Inhale 2 Un renetta 0.25 mg/2 7-29 mL in the ity o f mL 00:00: morning [place] nebulizer 00 and 2 mL Medica l solution in the Branch evening. benzonatate 2022-0 Yes [id number] 100mg Take 1 [facility] (TESSALON 7-29 capsule by rosi of BRAD) 100 00:00: mouth [place] mg capsule 00 every 8 Medica l (eight) Branch hours as needed for Cough. arformotero 2022-0 Yes 15ug Use 2 mL Un renetta L 15 mcg/2 7-29 as ity of mL 00:00: directed [place] nebulizer 00 in the Medical solution morning Branch and 2 mL in the evening. budesonide 2022-0 Yes .25mg Inhale 2 Un renetta 0.25 mg/2 7-29 mL in the ity o f mL 00:00: morning [place] nebulizer 00 and 2 mL Medica l solution in the Branch evening. benzonatate 2022-0 Yes [id number] 100mg Take 1 [facility] (TESSALON 7-29 capsule by ity of PERLTIFFANY) 100 00:00: mouth [place] mg capsule 00 every 8 Medica l (eight) Branch hours as needed for Cough. benzonatate 2021-0 Yes [id number] 100mg Take 1 [facility] (TESSALON 7-29 capsule by ity of PERLES) 100 00:00: mouth [place] mg capsule 00 every 8 Medica l (eight) Branch hours as needed for Cough. benzonatate 2021-0 Yes [id number] 100mg Take 1 [facility] (TESSALON 7-29 capsule by ity of PERLES) 100 00:00: mouth [place] mg capsule 00 every 8 Medica l (eight) Branch hours as needed for Cough. benzonatate 2021-0 Yes [id number] 100mg Take 1 [facility] (TESSALON 7-29 capsule by ity of PERLES) 100 00:00: mouth [place] mg capsule 00 every 8 Medica l (eight) Branch hours as needed for Cough. benzonatate 2021-0 Yes [id number] 100mg Take 1 [facility] (TESSALON 7-29 capsule by ity of PERLES) 100 00:00: mouth [place] mg capsule 00 every 8 Medica l (eight) Branch hours as needed for Cough. benzonatate 2021-0 Yes [id number] 100mg Take 1 [facility] (TESSALON 7-29 capsule by ity of PERLES) 100 00:00: mouth [place] mg capsule 00 every 8 Medica l (eight) Branch hours as needed for Cough. benzonatate 2021-0 Yes [id number] 100mg Take 1 [facility] (TESSALON 7-29 capsule by ity of PERLES) 100 00:00: mouth [place] mg capsule 00 every 8 Medica l (eight) Branch hours as needed for Cough. benzonatate 2021-0 Yes [id number] 100mg Take 1 [facility] (TESSALON 7-29 capsule by ity of PERLES) 100 00:00: mouth [place] mg capsule 00 every 8 Medica l (eight) Branch hours as needed for Cough. benzonatate 2021-0 Yes [id number] 100mg Take 1 [facility] (TESSALON 7-29 capsule by ity of PERLES) 100 00:00: mouth [place] mg capsule 00 every 8 Medica l (eight) Branch hours as needed for Cough. benzonatate 2021-0 Yes [id number] 100mg Take 1 [facility] (TESSALON 7-29 capsule by ity of TASHDress Code) 100 00:00: mouth [place] mg capsule 00 every 8 Medica l (eight) Branch hours as needed for Cough. benzonatate 2021-0 Yes [id number] 100mg Take 1 [facility] (TESSALON 7-29 capsule by itrohan of TASHDress Code) 100 00:00: mouth [place] mg capsule 00 every 8 Medica l (eight) Branch hours as needed for Cough. benzonatate 2021-0 Yes [id number] 100mg Take 1 [facility] (TESSALON 7-29 capsule by itrohan of TASHDress Code) 100 00:00: mouth [place] mg capsule 00 every 8 Medica l (eight) Branch hours as needed for Cough. benzonatate 2021-0 Yes [id number] 100mg Take 1 [facility] (TESSALON 7-29 capsule by [employer] of TASHDress Code) 100 00:00: mouth [place] mg capsule 00 every 8 Medica l (eight) Branch hours as needed for Cough. benzonatate 2021- No [id number] 100mg Take 1 [facility] (TESSALON 7-29 11-01 capsule by itrohan BRAD) 100 00:00: 00:00 [place] capsule 00 :00 every 8 Medica l (eight) Branch hours as needed for Cough. arformotero 2021-2021- No 15ug Use 2 mL U nivers L 15 mcg/2 09-29 as ity of mL 00:00: 00:00 directed [place] nebulizer 00 :00 in the Medical solution morning Branch and 2 mL in the evening. budesonide 2021- No .25mg Inhale 2 U nivers 0.25 mg/2 09-29 mL in the ity of mL 00:00: 00:00 morning [place] nebulizer 00 :00 and 2 mL Medica l solution in the Branch evening. arformotero 2021-2021- No 15ug Use 2 mL U nivers L 15 mcg/2 09-29 as ity of mL 00:00: 00:00 directed [place] nebulizer 00 :00 in the Medical solution morning Branch and 2 mL in the evening. budesonide 2021-0 2021- No .25mg Inhale 2 U nivers 0.25 mg/2 7-29 09-29 mL in the ity of mL 00:00: 00:00 morning [place] nebulizer 00 :00 and 2 mL Medica l solution in the Branch evening. arformotero 2021- No 15ug Use 2 mL U nivers L 15 mcg/2 09-29 as ity of mL 00:00: 00:00 directed [place] nebulizer 00 :00 in the Medical solution morning Branch and 2 mL in the evening. budesonide 2021- No .25mg Inhale 2 U nivers 0.25 mg/2 09-29- mL in the ity of mL 00:00: 00:00 morning [place] nebulizer 00 :00 and 2 mL Medica l solution in the Branch evening. albuterol Yes [id number] 2{puff} Inhale 2 [facility] 90 7-27 Puffs ity of mcg/actuati 00:00: every 6 [place] on inhaler 00 (six) Medical hours as Branch needed for Wheezing or Shortness of Breath. albuterol Yes [id number] 2{puff} Inhale 2 [facility] 90 7-27 Puffs ity of mcg/actuati 00:00: every 6 [place] on inhaler 00 (six) Medical hours as Branch needed for Wheezing or Shortness of Breath. albuterol Yes [id number] 2{puff} Inhale 2 [facility] 90 7-27 Puffs ity of mcg/actuati 00:00: every 6 [place] on inhaler 00 (six) Medical hours as Branch needed for Wheezing or Shortness of Breath. albuterol Yes [id number] 2{puff} Inhale 2 [facility] 90 7-27 Puffs ity of mcg/actuati 00:00: every 6 [place] on inhaler 00 (six) Medical hours as Branch needed for Wheezing or Shortness of Breath. albuterol Yes [id number] 2{puff} Inhale 2 [facility] 90 7-27 Puffs ity of mcg/actuati 00:00: every 6 [place] on inhaler 00 (six) Medical hours as Branch needed for Wheezing or Shortness of Breath. albuterol Yes [id number] 2{puff} Inhale 2 [facility] 90 7-27 Puffs ity of mcg/actuati 00:00: every 6 [place] on inhaler 00 (six) Medical hours as Branch needed for Wheezing or Shortness of Breath. albuterol Yes [id number] 2{puff} Inhale 2 [facility] 90 7-27 Puffs ity of mcg/actuati 00:00: every 6 [place] on inhaler 00 (six) Medical hours as Branch needed for Wheezing or Shortness of Breath. albuterol Yes [id number] 2{puff} Inhale 2 [facility] 90 7-27 Puffs ity of mcg/actuati 00:00: every 6 [place] on inhaler 00 (six) Medical hours as Branch needed for Wheezing or Shortness of Breath. albuterol Yes [id number] 2{puff} Inhale 2 [facility] 90 7-27 Puffs ity of mcg/actuati 00:00: every 6 [place] on inhaler 00 (six) Medical hours as Branch needed for Wheezing or Shortness of Breath. albuterol Yes [id number] 2{puff} Inhale 2 [facility] 90 7-27 Puffs ity of mcg/actuati 00:00: every 6 [place] on inhaler 00 (six) Medical hours as Branch needed for Wheezing or Shortness of Breath. albuterol Yes [id number] 2{puff} Inhale 2 [facility] 90 7-27 Puffs ity of mcg/actuati 00:00: every 6 [place] on inhaler 00 (six) Medical hours as Branch needed for Wheezing or Shortness of Breath. albuterol Yes [id number] 2{puff} Inhale 2 [facility] 90 7-27 Puffs ity of mcg/actuati 00:00: every 6 [place] on inhaler 00 (six) Medical hours as Branch needed for Wheezing or Shortness of Breath. albuterol Yes [id number] 2{puff} Inhale 2 [facility] 90 7-27 Puffs ity of mcg/actuati 00:00: every 6 [place] on inhaler 00 (six) Medical hours as Branch needed for Wheezing or Shortness of Breath. albuterol Yes [id number] 2{puff} Inhale 2 [facility] 90 7-27 Puffs ity of mcg/actuati 00:00: every 6 [place] on inhaler 00 (six) Medical hours as Branch needed for Wheezing or Shortness of Breath. albuterol Yes [id number] 2{puff} Inhale 2 [facility] 90 7-27 Puffs ity of mcg/actuati 00:00: every 6 [place] on inhaler 00 (six) Medical hours as Branch needed for Wheezing or Shortness of Breath. albuterol Yes [id number] 2{puff} Inhale 2 [facility] 90 7-27 Puffs ity of mcg/actuati 00:00: every 6 [place] on inhaler 00 (six) Medical hours as Branch needed for Wheezing or Shortness of Breath. albuterol Yes [id number] 2{puff} Inhale 2 [facility] 90 7-27 Puffs ity of mcg/actuati 00:00: every 6 [place] on inhaler 00 (six) Medical hours as Branch needed for Wheezing or Shortness of Breath. albuterol Yes [id number] 2{puff} Inhale 2 [facility] 90 7-27 Puffs ity of mcg/actuati 00:00: every 6 [place] on inhaler 00 (six) Medical hours as Branch needed for Wheezing or Shortness of Breath. albuterol Yes [id number] 2{puff} Inhale 2 [facility] 90 7-27 Puffs ity of mcg/actuati 00:00: every 6 [place] on inhaler 00 (six) Medical hours as Branch needed for Wheezing or Shortness of Breath. albuterol Yes [id number] 2{puff} Inhale 2 [facility] 90 7-27 Puffs ity of mcg/actuati 00:00: every 6 [place] on inhaler 00 (six) Medical hours as Branch needed for Wheezing or Shortness of Breath. albuterol Yes [id number] 2{puff} Inhale 2 [facility] 90 7-27 Puffs ity of mcg/actuati 00:00: every 6 [place] on inhaler 00 (six) Medical hours as Branch needed for Wheezing or Shortness of Breath. albuterol Yes [id number] 2{puff} Inhale 2 [facility] 90 7-27 Puffs ity of mcg/actuati 00:00: every 6 [place] on inhaler 00 (six) Medical hours as Branch needed for Wheezing or Shortness of Breath. albuterol Yes [id number] 2{puff} Inhale 2 [facility] 90 7-27 Puffs ity of mcg/actuati 00:00: every 6 [place] on inhaler 00 (six) Medical hours as Branch needed for Wheezing or Shortness of Breath. albuterol Yes [id number] 2{puff} Inhale 2 [facility] 90 7-27 Puffs ity of mcg/actuati 00:00: every 6 [place] on inhaler 00 (six) Medical hours as Branch needed for Wheezing or Shortness of Breath. albuterol Yes [id number] 2{puff} Inhale 2 [facility] 90 7-27 Puffs ity of mcg/actuati 00:00: every 6 [place] on inhaler 00 (six) Medical hours as Branch needed for Wheezing or Shortness of Breath. albuterol Yes [id number] 2{puff} Inhale 2 [facility] 90 7-27 Puffs ity of mcg/actuati 00:00: every 6 [place] on inhaler 00 (six) Medical hours as Branch needed for Wheezing or Shortness of Breath. albuterol Yes [id number] 2{puff} Inhale 2 [facility] 90 7-27 Puffs ity of mcg/actuati 00:00: every 6 [place] on inhaler 00 (six) Medical hours as Branch needed for Wheezing or Shortness of Breath. albuterol Yes [id number] 2{puff} Inhale 2 [facility] 90 7-27 Puffs ity of mcg/actuati 00:00: every 6 [place] on inhaler 00 (six) Medical hours as Branch needed for Wheezing or Shortness of Breath. albuterol Yes [id number] 2{puff} Inhale 2 [facility] 90 7-27 Puffs ity of mcg/actuati 00:00: every 6 [place] on inhaler 00 (six) Medical hours as Branch needed for Wheezing or Shortness of Breath. albuterol Yes [id number] 2{puff} Inhale 2 [facility] 90 7-27 Puffs ity of mcg/actuati 00:00: every 6 [place] on inhaler 00 (six) Medical hours as Branch needed for Wheezing or Shortness of Breath. albuterol Yes [id number] 2{puff} Inhale 2 [facility] 90 7-27 Puffs ity of mcg/actuati 00:00: every 6 [place] on inhaler 00 (six) Medical hours as Branch needed for Wheezing or Shortness of Breath. albuterol Yes [id number] 2{puff} Inhale 2 [facility] 90 7-27 Puffs ity of mcg/actuati 00:00: every 6 [place] on inhaler 00 (six) Medical hours as Branch needed for Wheezing or Shortness of Breath. albuterol Yes [id number] 2{puff} Inhale 2 [facility] 90 7-27 Puffs ity of mcg/actuati 00:00: every 6 [place] on inhaler 00 (six) Medical hours as Branch needed for Wheezing or Shortness of Breath. albuterol Yes [id number] 2{puff} Inhale 2 [facility] 90 7-27 Puffs ity of mcg/actuati 00:00: every 6 [place] on inhaler 00 (six) Medical hours as Branch needed for Wheezing or Shortness of Breath. albuterol Yes [id number] 2{puff} Inhale 2 [facility] 90 7-27 Puffs ity of mcg/actuati 00:00: every 6 [place] on inhaler 00 (six) Medical hours as Branch needed for Wheezing or Shortness of Breath. albuterol Yes [id number] 2{puff} Inhale 2 [facility] 90 7-27 Puffs ity of mcg/actuati 00:00: every 6 [place] on inhaler 00 (six) Medical hours as Branch needed for Wheezing or Shortness of Breath. albuterol Yes [id number] 2{puff} Inhale 2 [facility] 90 7-27 Puffs ity of mcg/actuati 00:00: every 6 [place] on inhaler 00 (six) Medical hours as Branch needed for Wheezing or Shortness of Breath. albuterol Yes [id number] 2{puff} Inhale 2 [facility] 90 7-27 Puffs ity of mcg/actuati 00:00: every 6 [place] on inhaler 00 (six) Medical hours as Branch needed for Wheezing or Shortness of Breath. albuterol Yes [id number] 2{puff} Inhale 2 [facility] 90 7-27 Puffs ity of mcg/actuati 00:00: every 6 [place] on inhaler 00 (six) Medical hours as Branch needed for Wheezing or Shortness of Breath. albuterol Yes [id number] 2{puff} Inhale 2 [facility] 90 7-27 Puffs ity of mcg/actuati 00:00: every 6 [place] on inhaler 00 (six) Medical hours as Branch needed for Wheezing or Shortness of Breath. albuterol Yes [id number] 2{puff} Inhale 2 [facility] 90 7-27 Puffs ity of mcg/actuati 00:00: every 6 [place] on inhaler 00 (six) Medical hours as Branch needed for Wheezing or Shortness of Breath. albuterol Yes [id number] 2{puff} Inhale 2 [facility] 90 7-27 Puffs ity of mcg/actuati 00:00: every 6 [place] on inhaler 00 (six) Medical hours as Branch needed for Wheezing or Shortness of Breath. albuterol Yes [id number] 2{puff} Inhale 2 [facility] 90 7-27 Puffs ity of mcg/actuati 00:00: every 6 [place] on inhaler 00 (six) Medical hours as Branch needed for Wheezing or Shortness of Breath. albuterol Yes [id number] 2{puff} Inhale 2 [facility] 90 7-27 Puffs ity of mcg/actuati 00:00: every 6 [place] on inhaler 00 (six) Medical hours as Branch needed for Wheezing or Shortness of Breath. albuterol Yes [id number] 2{puff} Inhale 2 [facility] 90 7-27 Puffs ity of mcg/actuati 00:00: every 6 [place] on inhaler 00 (six) Medical hours as Branch needed for Wheezing or Shortness of Breath. albuterol Yes [id number] 2{puff} Inhale 2 [facility] 90 7-27 Puffs ity of mcg/actuati 00:00: every 6 [place] on inhaler 00 (six) Medical hours as Branch needed for Wheezing or Shortness of Breath. albuterol Yes [id number] 2{puff} Inhale 2 [facility] 90 7-27 Puffs ity of mcg/actuati 00:00: every 6 [place] as on inhaler 00 (six) Medical hours as Branch needed for Wheezing or Shortness of Breath. albuterol 2022- No [id number] 2{puff} Inhale 2 [facility] 90 7-27 01-05 Puffs ity of mcg/actuati 00:00: 00:00 every 6 [place] on inhaler 00 :00 (six) Medical hours as Branch needed for Wheezing or Shortness of Breath. albuterol 2022- No [id number] 2{puff} Inhale 2 [facility] 90 7-27 01-05 Puffs ity of mcg/actuati 00:00: 00:00 every 6 [place] on inhaler 00 :00 (six) Medical hours as Branch needed for Wheezing or Shortness of Breath. albuterol 2022- No [id number] 2{puff} Inhale 2 [facility] 90 7-27 01-05 Puffs ity of mcg/actuati 00:00: 00:00 every 6 [place] on inhaler 00 :00 (six) Medical hours as Branch needed for Wheezing or Shortness of Breath. albuterol 2022- No [id number] 2{puff} Inhale 2 [facility] 90 7-27 01-05 Puffs ity of mcg/actuati 00:00: 00:00 every 6 [place] on inhaler 00 :00 (six) Medical hours as Branch needed for Wheezing or Shortness of Breath. levothyroxi Yes [id number] 150ug Take 1 [facility] ne 150 mcg 7-05 tablet by ity of tablet 00:00: mouth [place] 00 every Medical morning. Branch Diclofenac Yes [id number] Apply to [facility] Sodium 7-05 area(s) 4 ity of (VOLTAREN) 00:00: (four) [place] 1 % gel 00 times Medical daily. Branch Apply 4 g qid baclofen 10 Yes [id number] 10mg Take 1 [facility] mg tablet 7-05 tablet by ity o f 00:00: mouth 3 00 (three) Medical times Branch daily as needed for Pain (scale 7-10). docusate Yes [id number] 100mg Take 1 Un renet[place] 100 mg 7-05 capsule by ity of capsule 00:00: mouth 2 00 (two) Medical times Branch daily. glipiZIDE 2021-0 Yes [id number] 2.5mg Take 1 U nivers XL 2.5 mg 7-05 tablet by ity o f 24 hr 00:00: mouth 2 [place] tablet 00 (two) Medical times Branch daily. Lidocaine 5 2021-0 Yes [id number] Apply to [facility] % cream 7-05 area(s) 2 ity of 00:00: (two) [place] 00 times Medical daily as Branch needed for Pain (scale 4-6). Apply 5g to affected areas BID PRN levothyroxi 2021-0 Yes [id number] 150ug Take 1 [facility] ne 150 mcg 7-05 tablet by ity of tablet 00:00: mouth [place] 00 every Medical morning. Branch Diclofenac 2021-0 Yes [id number] Apply to [facility] Sodium 7-05 area(s) 4 ity of (VOLTAREN) 00:00: (four) [place] 1 % gel 00 times Medical daily. Branch Apply 4 g qid baclofen 10 2021-0 Yes [id number] 10mg Take 1 [facility] mg tablet 7-05 tablet by ity o f 00:00: mouth 3 [place] 00 (three) Medical times Branch daily as needed for Pain (scale 7-10). docusate 0 Yes [id number] 100mg Take 1 Un renetta 100 mg 7-05 capsule by ity of capsule 00:00: mouth 2 [place] 00 (two) Medical times Branch daily. glipiZIDE 2021-0 Yes [id number] 2.5mg Take 1 U nivers XL 2.5 mg 7-05 tablet by ity o f 24 hr 00:00: mouth 2 [place] tablet 00 (two) Medical times Branch daily. Lidocaine 5 2021-0 Yes [id number] Apply to [facility] % cream 7-05 area(s) 2 ity of 00:00: (two) [place] 00 times Medical daily as Branch needed for Pain (scale 4-6). Apply 5g to affected areas BID PRN levothyroxi 2021-0 Yes [id number] 150ug Take 1 [facility] ne 150 mcg 7-05 tablet by ity of tablet 00:00: mouth [place] 00 every Medical morning. Branch Diclofenac 2021-0 Yes [id number] Apply to [facility] Sodium 7-05 area(s) 4 ity of (VOLTAREN) 00:00: (four) [place] 1 % gel 00 times Medical daily. Branch Apply 4 g qid baclofen 10 Yes [id number] 10mg Take 1 [facility] mg tablet 7-05 tablet by ity o f 00:00: mouth 3 [place] 00 (three) Medical times Branch daily as needed for Pain (scale 7-10). docusate 2021-0 Yes [id number] 100mg Take 1 Un renet[facility] 100 mg 7-05 capsule by ity of capsule 00:00: mouth 2 [place] 00 (two) Medical times Branch daily. glipiZIDE Yes [id number] 2.5mg Take 1 U nivers XL 2.5 mg 7-05 tablet by ity o f 24 hr 00:00: mouth 2 [place] tablet 00 (two) Medical times Branch daily. Lidocaine 5 0 Yes [id number] Apply to [facility] % cream 7-05 area(s) 2 ity of 00:00: (two) [place] 00 times Medical daily as Branch needed for Pain (scale 4-6). Apply 5g to affected areas BID PRN levothyroxi Yes [id number] 150ug Take 1 [facility] ne 150 mcg 7-05 tablet by ity of tablet 00:00: mouth [place] 00 every Medical morning. Branch Diclofenac Yes [id number] Apply to [facility] Sodium 7-05 area(s) 4 ity of (VOLTAREN) 00:00: (four) [place] 1 % gel 00 times Medical daily. Branch Apply 4 g qid baclofen 10 Yes [id number] 10mg Take 1 [facility] mg tablet 7-05 tablet by ity o f 00:00: mouth 3 [place] 00 (three) Medical times Branch daily as needed for Pain (scale 7-10). docusate 2021-0 Yes [id number] 100mg Take 1 Un renet[facility] 100 mg 7-05 capsule by ity of capsule 00:00: mouth 2 00 (two) Medical times Branch daily. glipiZIDE 2021-0 Yes [id number] 2.5mg Take 1 U nivers XL 2.5 mg 7-05 tablet by ity o f 24 hr 00:00: mouth 2 [place] tablet 00 (two) Medical times Branch daily. Lidocaine 5 2021-0 Yes [id number] Apply to [facility] % cream 7-05 area(s) 2 ity of 00:00: (two) [place] 00 times Medical daily as Branch needed for Pain (scale 4-6). Apply 5g to affected areas BID PRN levothyroxi 2021-0 Yes [id number] 150ug Take 1 [facility] ne 150 mcg 7-05 tablet by ity of tablet 00:00: mouth [place] 00 every Medical morning. Branch Diclofenac 2021-0 Yes [id number] Apply to [facility] Sodium 7-05 area(s) 4 ity of (VOLTAREN) 00:00: (four) [place] 1 % gel 00 times Medical daily. Branch Apply 4 g qid baclofen 10 Yes [id number] 10mg Take 1 [facility] mg tablet 7-05 tablet by ity o f 00:00: mouth 3 [place] 00 (three) Medical times Branch daily as needed for Pain (scale 7-10). docusate 0 Yes [id number] 100mg Take 1 Un renet[facility] 100 mg 7-05 capsule by ity of capsule 00:00: mouth 2 [place] 00 (two) Medical times Branch daily. glipiZIDE Yes [id number] 2.5mg Take 1 U nivers XL 2.5 mg 7-05 tablet by ity o f 24 hr 00:00: mouth 2 [place] tablet 00 (two) Medical times Branch daily. Lidocaine 5 0 Yes [id number] Apply to [facility] % cream 7-05 area(s) 2 ity of 00:00: (two) [place] 00 times Medical daily as Branch needed for Pain (scale 4-6). Apply 5g to affected areas BID PRN levothyroxi 0 Yes [id number] 150ug Take 1 [facility] ne 150 mcg 7-05 tablet by ity of tablet 00:00: mouth [place] 00 every Medical morning. Branch Diclofenac 2021-0 Yes [id number] Apply to [facility] Sodium 7-05 area(s) 4 ity of (VOLTAREN) 00:00: (four) [place] 1 % gel 00 times Medical daily. Branch Apply 4 g qid baclofen 10 0 Yes [id number] 10mg Take 1 [facility] mg tablet 7-05 tablet by ity o f 00:00: mouth 3 [place] 00 (three) Medical times Branch daily as needed for Pain (scale 7-10). docusate 2021-0 Yes [id number] 100mg Take 1 Un renet[facility] 100 mg 7-05 capsule by ity of capsule 00:00: mouth 2 [place] 00 (two) Medical times Branch daily. glipiZIDE Yes [id number] 2.5mg Take 1 U nivers XL 2.5 mg 7-05 tablet by ity o f 24 hr 00:00: mouth 2 [place] tablet 00 (two) Medical times Branch daily. Lidocaine 5 2021- Yes [id number] Apply to [facility] % cream 7-05 area(s) 2 ity of 00:00: (two) [place] 00 times Medical daily as Branch needed for Pain (scale 4-6). Apply 5g to affected areas BID PRN levothyroxi 2021- Yes [id number] 150ug Take 1 [facility] ne 150 mcg 7-05 tablet by ity of tablet 00:00: mouth [place] 00 every Medical morning. Branch Diclofenac Yes [id number] Apply to [facility] Sodium 7-05 area(s) 4 ity of (VOLTAREN) 00:00: (four) [place] 1 % gel 00 times Medical daily. Branch Apply 4 g qid baclofen 10 Yes [id number] 10mg Take 1 [facility] mg tablet 7-05 tablet by ity o f 00:00: mouth 3 [place] 00 (three) Medical times Branch daily as needed for Pain (scale 7-10). docusate Yes [id number] 100mg Take 1 Un renetta 100 mg 7-05 capsule by ity of capsule 00:00: mouth 2 [place] 00 (two) Medical times Branch daily. glipiZIDE Yes [id number] 2.5mg Take 1 U nivers XL 2.5 mg 7-05 tablet by ity o f 24 hr 00:00: mouth 2 [place] tablet 00 (two) Medical times Branch daily. Lidocaine 5 2021- Yes [id number] Apply to [facility] % cream 7-05 area(s) 2 ity of 00:00: (two) [place] 00 times Medical daily as Branch needed for Pain (scale 4-6). Apply 5g to affected areas BID PRN levothyroxi 2021-0 Yes [id number] 150ug Take 1 [facility] ne 150 mcg 7-05 tablet by ity of tablet 00:00: mouth [place] 00 every Medical morning. Branch Diclofenac 2021- Yes [id number] Apply to [facility] Sodium 7-05 area(s) 4 ity of (VOLTAREN) 00:00: (four) [place] 1 % gel 00 times Medical daily. Branch Apply 4 g qid baclofen 10 Yes [id number] 10mg Take 1 [facility] mg tablet 7-05 tablet by ity o f 00:00: mouth 3 00 (three) Medical times Branch daily as needed for Pain (scale 7-10). docusate 2021-0 Yes [id number] 100mg Take 1 Un renetta 100 mg 7-05 capsule by ity of capsule 00:00: mouth 2 [place] 00 (two) Medical times Branch daily. glipiZIDE Yes [id number] 2.5mg Take 1 U nivers XL 2.5 mg 7-05 tablet by ity o f 24 hr 00:00: mouth 2 [place] tablet 00 (two) Medical times Branch daily. Lidocaine 5 Yes [id number] Apply to [facility] % cream 7-05 area(s) 2 ity of 00:00: (two) [place] 00 times Medical daily as Branch needed for Pain (scale 4-6). Apply 5g to affected areas BID PRN levothyroxi 0 Yes [id number] 150ug Take 1 [facility] ne 150 mcg 7-05 tablet by ity of tablet 00:00: mouth 00 every Medical morning. Branch Diclofenac Yes [id number] Apply to [facility] Sodium 7-05 area(s) 4 ity of (VOLTAREN) 00:00: (four) [place] 1 % gel 00 times Medical daily. Branch Apply 4 g qid baclofen 10 Yes [id number] 10mg Take 1 [facility] mg tablet 7-05 tablet by ity o f 00:00: mouth 3 00 (three) Medical times Branch daily as needed for Pain (scale 7-10). docusate 2021-0 Yes [id number] 100mg Take 1 Un renet[place] 100 mg 7-05 capsule by ity of capsule 00:00: mouth 2 (two) Medical times Branch daily. glipiZIDE 2021-0 Yes [id number] 2.5mg Take 1 U nivers XL 2.5 mg 7-05 tablet by ity o f 24 hr 00:00: mouth 2 [place] tablet 00 (two) Medical times Branch daily. Lidocaine 5 Yes [id number] Apply to [facility] % cream 7-05 area(s) 2 ity of 00:00: (two) [place] 00 times Medical daily as Branch needed for Pain (scale 4-6). Apply 5g to affected areas BID PRN levothyroxi Yes [id number] 150ug Take 1 [facility] ne 150 mcg 7-05 tablet by ity of tablet 00:00: mouth [place] 00 every Medical morning. Branch Diclofenac Yes [id number] Apply to [facility] Sodium 7-05 area(s) 4 ity of (VOLTAREN) 00:00: (four) [place] 1 % gel 00 times Medical daily. Branch Apply 4 g qid baclofen 10 Yes [id number] 10mg Take 1 [facility] mg tablet 7-05 tablet by ity o f 00:00: mouth 3 [place] 00 (three) Medical times Branch daily as needed for Pain (scale 7-10). docusate Yes [id number] 100mg Take 1 Un renetta 100 mg 7-05 capsule by ity of capsule 00:00: mouth 2 [place] 00 (two) Medical times Branch daily. glipiZIDE Yes [id number] 2.5mg Take 1 U nivers XL 2.5 mg 7-05 tablet by ity o f 24 hr 00:00: mouth 2 [place] tablet 00 (two) Medical times Branch daily. Lidocaine 5 Yes [id number] Apply to [facility] % cream 7-05 area(s) 2 ity of 00:00: (two) [place] 00 times Medical daily as Branch needed for Pain (scale 4-6). Apply 5g to affected areas BID PRN levothyroxi Yes [id number] 150ug Take 1 [facility] ne 150 mcg 7-05 tablet by ity of tablet 00:00: mouth [place] 00 every Medical morning. Branch Diclofenac Yes [id number] Apply to [facility] Sodium 7-05 area(s) 4 ity of (VOLTAREN) 00:00: (four) [place] 1 % gel 00 times Medical daily. Branch Apply 4 g qid baclofen 10 Yes [id number] 10mg Take 1 [facility] mg tablet 7-05 tablet by ity o f 00:00: mouth 3 [place] 00 (three) Medical times Branch daily as needed for Pain (scale 7-10). docusate Yes [id number] 100mg Take 1 Un renetta 100 mg 7-05 capsule by ity of capsule 00:00: mouth 2 [place] 00 (two) Medical times Branch daily. glipiZIDE Yes [id number] 2.5mg Take 1 U nivers XL 2.5 mg 7-05 tablet by ity o f 24 hr 00:00: mouth 2 [place] tablet 00 (two) Medical times Branch daily. Lidocaine 5 Yes [id number] Apply to [facility] % cream 7-05 area(s) 2 ity of 00:00: (two) [place] 00 times Medical daily as Branch needed for Pain (scale 4-6). Apply 5g to affected areas BID PRN levothyroxi Yes [id number] 150ug Take 1 [facility] ne 150 mcg 7-05 tablet by ity of tablet 00:00: mouth [place] 00 every Medical morning. Branch Diclofenac Yes [id number] Apply to [facility] Sodium 7-05 area(s) 4 ity of (VOLTAREN) 00:00: (four) [place] 1 % gel 00 times Medical daily. Branch Apply 4 g qid baclofen 10 Yes [id number] 10mg Take 1 [facility] mg tablet 7-05 tablet by [facility] f 00:00: mouth 3 [place] 00 (three) Medical times Branch daily as needed for Pain (scale 7-10). docusate Yes [id number] 100mg Take 1 [facility] renetta 100 mg 7-05 capsule by [facility] capsule 00:00: mouth 2 00 (two) Medical times Branch daily. glipiZIDE Yes [id number] 2.5mg Take 1 [facility] XL 2.5 mg 7-05 tablet by [facility] o f 24 hr 00:00: mouth 2 [place] tablet 00 (two) Medical times Branch daily. Lidocaine 5 Yes [id number] Apply to [facility] % cream 7-05 area(s) 2 [facility] 00:00: (two) [place] 00 times Medical daily as Branch needed for Pain (scale 4-6). Apply 5g to affected areas BID PRN levothyroxi Yes [id number] 150ug Take 1 [facility] ne 150 mcg 7-05 tablet by [facility] tablet 00:00: mouth [place] 00 every Medical morning. Branch Diclofenac Yes [id number] Apply to [facility] Sodium 7-05 area(s) 4 [facility] of (VOLTAREN) 00:00: (four) [place] 1 % gel 00 times Medical daily. Branch Apply 4 g qid baclofen 10 Yes [id number] 10mg Take 1 [facility] mg tablet 7-05 tablet by [facility] o f 00:00: mouth 3 (three) Medical times Branch daily as needed for Pain (scale 7-10). docusate 0 Yes [id number] 100mg Take 1 [facility] re[facility] 100 mg 7-05 capsule by [facility] capsule 00:00: mouth 2 [place] 00 (two) Medical times Branch daily. glipiZIDE 0 Yes [id number] 2.5mg Take 1 [facility] XL 2.5 mg 7-05 tablet by [facility] o f 24 hr 00:00: mouth 2 [place] tablet 00 (two) Medical times Branch daily. Lidocaine 5 0 Yes [id number] Apply to [facility] % cream 7-05 area(s) 2 [facility] 00:00: (two) [place] 00 times Medical daily as Branch needed for Pain (scale 4-6). Apply 5g to affected areas BID PRN levothyroxi Yes [id number] 150ug Take 1 [facility] ne 150 mcg 7-05 tablet by [facility] of tablet 00:00: mouth [place] 00 every Medical morning. Branch Diclofenac Yes [id number] Apply to [facility] Sodium 7-05 area(s) 4 [facility] of (VOLTAREN) 00:00: (four) [place] 1 % gel 00 times Medical daily. Branch Apply 4 g qid baclofen 10 Yes [id number] 10mg Take 1 [facility] mg tablet 7-05 tablet by [facility] o f 00:00: mouth 3 [place] 00 (three) Medical times Branch daily as needed for Pain (scale 7-10). docusate 2021-0 Yes [id number] 100mg Take 1 [facility] renet[facility] 100 mg 7-05 capsule by [facility] capsule 00:00: mouth 2 [place] 00 (two) Medical times Branch daily. glipiZIDE 2021-0 Yes [id number] 2.5mg Take 1 [facility] XL 2.5 mg 7-05 tablet by [facility] o f 24 hr 00:00: mouth 2 [place] tablet 00 (two) Medical times Branch daily. Lidocaine 5 2021-0 Yes [id number] Apply to [facility] % cream 7-05 area(s) 2 [facility] 00:00: (two) [place] 00 times Medical daily as Branch needed for Pain (scale 4-6). Apply 5g to affected areas BID PRN levothyroxi 2-0 Yes [id number] 150ug Take 1 [facility] ne 150 mcg 7-05 tablet by [facility] tablet 00:00: mouth [place] 00 every Medical morning. Branch Diclofenac 2021-0 Yes [id number] Apply to [facility] Sodium 7-05 area(s) 4 [facility] of (VOLTAREN) 00:00: (four) [place] 1 % gel 00 times Medical daily. Branch Apply 4 g qid baclofen 10 2021-0 Yes [id number] 10mg Take 1 [facility] mg tablet 7-05 tablet by [facility] o f 00:00: mouth 3 [place] 00 (three) Medical times Branch daily as needed for Pain (scale 7-10). docusate 0 Yes [id number] 100mg Take 1 [facility] renet[facility] 100 mg 7-05 capsule by [facility] capsule 00:00: mouth 2 [place] 00 (two) Medical times Branch daily. glipiZIDE 2021-0 Yes [id number] 2.5mg Take 1 [facility] XL 2.5 mg 7-05 tablet by [facility] o f 24 hr 00:00: mouth 2 [place] tablet 00 (two) Medical times Branch daily. Lidocaine 5 2021-0 Yes [id number] Apply to [facility] % cream 7-05 area(s) 2 [facility] 00:00: (two) [place] 00 times Medical daily as Branch needed for Pain (scale 4-6). Apply 5g to affected areas BID PRN levothyroxi 2021-0 Yes [id number] 150ug Take 1 [facility] ne 150 mcg 7-05 tablet by [facility] of tablet 00:00: mouth [place] 00 every Medical morning. Branch Diclofenac 2021-0 Yes [id number] Apply to [facility] Sodium 7-05 area(s) 4 [facility] of (VOLTAREN) 00:00: (four) [place] 1 % gel 00 times Medical daily. Branch Apply 4 g qid baclofen 10 2021-0 Yes [id number] 10mg Take 1 [facility] mg tablet 7-05 tablet by [facility] o f 00:00: mouth 3 [place] 00 (three) Medical times Branch daily as needed for Pain (scale 7-10). docusate 2021- Yes [id number] 100mg Take 1 [facility] renet[facility] 100 mg 7-05 capsule by [facility] capsule 00:00: mouth 2 [place] 00 (two) Medical times Branch daily. glipiZIDE 2021- Yes [id number] 2.5mg Take 1 [facility] XL 2.5 mg 7-05 tablet by [facility] o f 24 hr 00:00: mouth 2 [place] tablet 00 (two) Medical times Branch daily. Lidocaine 5 2021- Yes [id number] Apply to [facility] % cream 7-05 area(s) 2 [facility] 00:00: (two) [place] 00 times Medical daily as Branch needed for Pain (scale 4-6). Apply 5g to affected areas BID PRN levothyroxi Yes [id number] 150ug Take 1 [facility] ne 150 mcg 7-05 tablet by [facility] tablet 00:00: mouth [place] 00 every Medical morning. Branch Diclofenac Yes [id number] Apply to [facility] Sodium 7-05 area(s) 4 [facility] of (VOLTAREN) 00:00: (four) [place] 1 % gel 00 times Medical daily. Branch Apply 4 g qid baclofen 10 Yes [id number] 10mg Take 1 [facility] mg tablet 7-05 tablet by [facility] o f 00:00: mouth 3 [place] 00 (three) Medical times Branch daily as needed for Pain (scale 7-10). docusate 2021-0 Yes [id number] 100mg Take 1 [facility] renet[facility] 100 mg 7-05 capsule by [facility] capsule 00:00: mouth 2 00 (two) Medical times Branch daily. glipiZIDE 2021- Yes [id number] 2.5mg Take 1 [facility] XL 2.5 mg 7-05 tablet by [facility] o f 24 hr 00:00: mouth 2 [place] tablet 00 (two) Medical times Branch daily. Lidocaine 5 2021- Yes [id number] Apply to [facility] % cream 7-05 area(s) 2 [facility] 00:00: (two) [place] 00 times Medical daily as Branch needed for Pain (scale 4-6). Apply 5g to affected areas BID PRN levothyroxi 2021-0 Yes [id number] 150ug Take 1 [facility] ne 150 mcg 7-05 tablet by [facility] of tablet 00:00: mouth [place] 00 every Medical morning. Branch Diclofenac Yes [id number] Apply to [facility] Sodium 7-05 area(s) 4 [facility] of (VOLTAREN) 00:00: (four) [place] 1 % gel 00 times Medical daily. Branch Apply 4 g qid baclofen 10 Yes [id number] 10mg Take 1 [facility] mg tablet 7-05 tablet by [facility] o f 00:00: mouth 3 [place] 00 (three) Medical times Branch daily as needed for Pain (scale 7-10). docusate Yes [id number] 100mg Take 1 [facility] renet[facility] 100 mg 7-05 capsule by [facility] capsule 00:00: mouth 2 [place] 00 (two) Medical times Branch daily. glipiZIDE Yes [id number] 2.5mg Take 1 [facility] XL 2.5 mg 7-05 tablet by [facility] o f 24 hr 00:00: mouth 2 [place] tablet 00 (two) Medical times Branch daily. Lidocaine 5 Yes [id number] Apply to [facility] % cream 7-05 area(s) 2 [facility] 00:00: (two) [place] 00 times Medical daily as Branch needed for Pain (scale 4-6). Apply 5g to affected areas BID PRN levothyroxi Yes [id number] 150ug Take 1 [facility] ne 150 mcg 7-05 tablet by [facility] tablet 00:00: mouth [place] 00 every Medical morning. Branch Diclofenac Yes [id number] Apply to [facility] Sodium 7-05 area(s) 4 [facility] of (VOLTAREN) 00:00: (four) [place] 1 % gel 00 times Medical daily. Branch Apply 4 g qid baclofen 10 Yes [id number] 10mg Take 1 [facility] mg tablet 7-05 tablet by [facility] o f 00:00: mouth 3 [place] 00 (three) Medical times Branch daily as needed for Pain (scale 7-10). docusate 0 Yes [id number] 100mg Take 1 [facility] renet[facility] 100 mg 7-05 capsule by [facility] capsule 00:00: mouth 2 [place] 00 (two) Medical times Branch daily. glipiZIDE Yes [id number] 2.5mg Take 1 [facility] XL 2.5 mg 7-05 tablet by [facility] o f 24 hr 00:00: mouth 2 [place] tablet 00 (two) Medical times Branch daily. Lidocaine 5 2021- Yes [id number] Apply to [facility] % cream 7-05 area(s) 2 [facility] 00:00: (two) [place] 00 times Medical daily as Branch needed for Pain (scale 4-6). Apply 5g to affected areas BID PRN levothyroxi 2021-0 Yes [id number] 150ug Take 1 [facility] ne 150 mcg 7-05 tablet by [facility] tablet 00:00: mouth [place] 00 every Medical morning. Branch Diclofenac 2021-0 Yes [id number] Apply to [facility] Sodium 7-05 area(s) 4 [facility] of (VOLTAREN) 00:00: (four) [place] 1 % gel 00 times Medical daily. Branch Apply 4 g qid baclofen 10 0 Yes [id number] 10mg Take 1 [facility] mg tablet 7-05 tablet by [facility] o f 00:00: mouth 3 [place] 00 (three) Medical times Branch daily as needed for Pain (scale 7-10). docusate Yes [id number] 100mg Take 1 [facility] renet[facility] 100 mg 7-05 capsule by [facility] capsule 00:00: mouth 2 [place] 00 (two) Medical times Branch daily. glipiZIDE Yes [id number] 2.5mg Take 1 [facility] XL 2.5 mg 7-05 tablet by [facility] o f 24 hr 00:00: mouth 2 [place] tablet 00 (two) Medical times Branch daily. Lidocaine 5 2021- Yes [id number] Apply to [facility] % cream 7-05 area(s) 2 [facility] 00:00: (two) [place] 00 times Medical daily as Branch needed for Pain (scale 4-6). Apply 5g to affected areas BID PRN levothyroxi 2021-0 Yes [id number] 150ug Take 1 [facility] ne 150 mcg 7-05 tablet by [facility] of tablet 00:00: mouth [place] 00 every Medical morning. Branch Diclofenac 2021-0 Yes [id number] Apply to [facility] Sodium 7-05 area(s) 4 [facility] of (VOLTAREN) 00:00: (four) [place] 1 % gel 00 times Medical daily. Branch Apply 4 g qid baclofen 10 2021-0 Yes [id number] 10mg Take 1 [facility] mg tablet 7-05 tablet by [facility] o f 00:00: mouth 3 [place] 00 (three) Medical times Branch daily as needed for Pain (scale 7-10). glipiZIDE Yes [id number] 2.5mg Take 1 [facility] n[facility] XL 2.5 mg 7-05 tablet by [facility] o f 24 hr 00:00: mouth 2 [place] tablet 00 (two) Medical times Branch daily. Lidocaine 5 Yes [id number] Apply to [facility] % cream 7-05 area(s) 2 [facility] 00:00: (two) [place] 00 times Medical daily as Branch needed for Pain (scale 4-6). Apply 5g to affected areas BID PRN levothyroxi Yes [id number] 150ug Take 1 [facility] ne 150 mcg 7-05 tablet by [facility] of tablet 00:00: mouth [place] 00 every Medical morning. Branch Diclofenac Yes [id number] Apply to [facility] Sodium 7-05 area(s) 4 [facility] of (VOLTAREN) 00:00: (four) [place] 1 % gel 00 times Medical daily. Branch Apply 4 g qid baclofen 10 Yes [id number] 10mg Take 1 [facility] mg tablet 7-05 tablet by [facility] o f 00:00: mouth 3 [place] 00 (three) Medical times Branch daily as needed for Pain (scale 7-10). glipiZIDE Yes [id number] 2.5mg Take 1 [facility] n[facility] XL 2.5 mg 7-05 tablet by [facility] o f 24 hr 00:00: mouth 2 [place] tablet 00 (two) Medical times Branch daily. Lidocaine 5 Yes [id number] Apply to [facility] % cream 7-05 area(s) 2 [facility] 00:00: (two) [place] 00 times Medical daily as Branch needed for Pain (scale 4-6). Apply 5g to affected areas BID PRN levothyroxi Yes [id number] 150ug Take 1 [facility] ne 150 mcg 7-05 tablet by [facility] of tablet 00:00: mouth [place] 00 every Medical morning. Branch Diclofenac Yes [id number] Apply to [facility] Sodium 7-05 area(s) 4 [facility] of (VOLTAREN) 00:00: (four) [place] 1 % gel 00 times Medical daily. Branch Apply 4 g qid baclofen 10 Yes [id number] 10mg Take 1 [facility] mg tablet 7-05 tablet by [facility] o f 00:00: mouth 3 [place] 00 (three) Medical times Branch daily as needed for Pain (scale 7-10). glipiZIDE Yes [id number] 2.5mg Take 1 [facility] n[facility] XL 2.5 mg 7-05 tablet by [facility] o f 24 hr 00:00: mouth 2 [place] tablet 00 (two) Medical times Branch daily. Lidocaine 5 2021-0 Yes [id number] Apply to [facility] % cream 7-05 area(s) 2 [facility] 00:00: (two) [place] 00 times Medical daily as Branch needed for Pain (scale 4-6). Apply 5g to affected areas BID PRN levothyroxi Yes [id number] 150ug Take 1 [facility] ne 150 mcg 7-05 tablet by [facility] of tablet 00:00: mouth [place] 00 every Medical morning. Branch Diclofenac Yes [id number] Apply to [facility] Sodium 7-05 area(s) 4 [facility] of (VOLTAREN) 00:00: (four) [place] 1 % gel 00 times Medical daily. Branch Apply 4 g qid baclofen 10 Yes [id number] 10mg Take 1 [facility] mg tablet 7-05 tablet by [facility] o f 00:00: mouth 3 [place] 00 (three) Medical times Branch daily as needed for Pain (scale 7-10). glipiZIDE Yes [id number] 2.5mg Take 1 [facility] n[facility] XL 2.5 mg 7-05 tablet by [facility] o f 24 hr 00:00: mouth 2 [place] tablet 00 (two) Medical times Branch daily. Lidocaine 5 Yes [id number] Apply to [facility] % cream 7-05 area(s) 2 [facility] 00:00: (two) [place] 00 times Medical daily as Branch needed for Pain (scale 4-6). Apply 5g to affected areas BID PRN levothyroxi 2021-0 Yes [id number] 150ug Take 1 [facility] ne 150 mcg 7-05 tablet by [facility] of tablet 00:00: mouth [place] 00 every Medical morning. Branch Diclofenac Yes [id number] Apply to [facility] Sodium 7-05 area(s) 4 [facility] of (VOLTAREN) 00:00: (four) [place] 1 % gel 00 times Medical daily. Branch Apply 4 g qid baclofen 10 0 Yes [id number] 10mg Take 1 [facility] mg tablet 7-05 tablet by [facility] o f 00:00: mouth 3 [place] 00 (three) Medical times Branch daily as needed for Pain (scale 7-10). glipiZIDE Yes [id number] 2.5mg Take 1 [facility] n[facility] XL 2.5 mg 7-05 tablet by [facility] o f 24 hr 00:00: mouth 2 [place] tablet 00 (two) Medical times Branch daily. Lidocaine 5 2021-0 Yes [id number] Apply to [facility] % cream 7-05 area(s) 2 [facility] 00:00: (two) [place] 00 times Medical daily as Branch needed for Pain (scale 4-6). Apply 5g to affected areas BID PRN levothyroxi 2021-0 Yes [id number] 150ug Take 1 [facility] ne 150 mcg 7-05 tablet by [facility] of tablet 00:00: mouth [place] 00 every Medical morning. Branch Diclofenac Yes [id number] Apply to [facility] Sodium 7-05 area(s) 4 [facility] of (VOLTAREN) 00:00: (four) [place] 1 % gel 00 times Medical daily. Branch Apply 4 g qid baclofen 10 Yes [id number] 10mg Take 1 [facility] mg tablet 7-05 tablet by [facility] o f 00:00: mouth 3 [place] 00 (three) Medical times Branch daily as needed for Pain (scale 7-10). glipiZIDE Yes [id number] 2.5mg Take 1 [facility] nivers XL 2.5 mg 7-05 tablet by [facility] o f 24 hr 00:00: mouth 2 [place] tablet 00 (two) Medical times Branch daily. Lidocaine 5 2021-0 Yes [id number] Apply to [facility] % cream 7-05 area(s) 2 [facility] 00:00: (two) [place] 00 times Medical daily as Branch needed for Pain (scale 4-6). Apply 5g to affected areas BID PRN levothyroxi 2021-0 Yes [id number] 150ug Take 1 [facility] ne 150 mcg 7-05 tablet by [facility] of tablet 00:00: mouth [place] 00 every Medical morning. Branch Diclofenac 2021-0 Yes [id number] Apply to [facility] Sodium 7-05 area(s) 4 [facility] of (VOLTAREN) 00:00: (four) [place] 1 % gel 00 times Medical daily. Branch Apply 4 g qid glipiZIDE 2021-0 Yes [id number] 2.5mg Take 1 [facility] n[facility] XL 2.5 mg 7-05 tablet by [facility] o f 24 hr 00:00: mouth 2 [place] tablet 00 (two) Medical times Branch daily. Lidocaine 5 2021-0 Yes [id number] Apply to [facility] % cream 7-05 area(s) 2 [facility] of 00:00: (two) [place] 00 times Medical daily as Branch needed for Pain (scale 4-6). Apply 5g to affected areas BID PRN levothyroxi 2021-0 Yes [id number] 150ug Take 1 [facility] ne 150 mcg 7-05 tablet by [facility] of tablet 00:00: mouth [place] 00 every Medical morning. Branch Diclofenac 2021-0 Yes [id number] Apply to [facility] Sodium 7-05 area(s) 4 [facility] of (VOLTAREN) 00:00: (four) [place] 1 % gel 00 times Medical daily. Branch Apply 4 g qid glipiZIDE 2021-0 Yes [id number] 2.5mg Take 1 [facility] n[facility] XL 2.5 mg 7-05 tablet by it[facility] o f 24 hr 00:00: mouth 2 [place] tablet 00 (two) Medical times Branch daily. Lidocaine 5 2021-0 Yes [id number] Apply to [facility] % cream 7-05 area(s) 2 [facility] of 00:00: (two) [place] 00 times Medical daily as Branch needed for Pain (scale 4-6). Apply 5g to affected areas BID PRN levothyroxi 2-0 Yes [id number] 150ug Take 1 [facility] ne 150 mcg 7-05 tablet by [facility] of tablet 00:00: mouth [place] 00 every Medical morning. Branch Diclofenac 2-0 Yes [id number] Apply to [facility] Sodium 7-05 area(s) 4 [facility] of (VOLTAREN) 00:00: (four) [place] 1 % gel 00 times Medical daily. Branch Apply 4 g qid glipiZIDE 2-0 Yes [id number] 2.5mg Take 1 [facility] n[facility] XL 2.5 mg 7-05 tablet by it[facility] o f 24 hr 00:00: mouth 2 [place] tablet 00 (two) Medical times Branch daily. Lidocaine 5 2021-0 Yes [id number] Apply to [facility] % cream 7-05 area(s) 2 [facility] of 00:00: (two) [place] 00 times Medical daily as Branch needed for Pain (scale 4-6). Apply 5g to affected areas BID PRN levothyroxi 2021-0 Yes [id number] 150ug Take 1 [facility] ne 150 mcg 7-05 tablet by [facility] of tablet 00:00: mouth [place] 00 every Medical morning. Branch Diclofenac 2021-0 Yes [id number] Apply to [facility] Sodium 7-05 area(s) 4 [facility]y of (VOLTAREN) 00:00: (four) [place] 1 % gel 00 times Medical daily. Branch Apply 4 g qid glipiZIDE 2021-0 Yes [id number] 2.5mg Take 1 [facility] n[facility] XL 2.5 mg 7-05 tablet by [facility] o f 24 hr 00:00: mouth 2 [place] tablet 00 (two) Medical times Branch daily. Lidocaine 5 2021- Yes [id number] Apply to [facility] % cream 7-05 area(s) 2 [facility] of 00:00: (two) [place] 00 times Medical daily as Branch needed for Pain (scale 4-6). Apply 5g to affected areas BID PRN levothyroxi 2021-0 Yes [id number] 150ug Take 1 [facility] ne 150 mcg 7-05 tablet by [facility] of tablet 00:00: mouth [place] 00 every Medical morning. Branch Diclofenac 2021-0 Yes [id number] Apply to [facility] Sodium 7-05 area(s) 4 [facility] of (VOLTAREN) 00:00: (four) [place] 1 % gel 00 times Medical daily. Branch Apply 4 g qid glipiZIDE 2021-0 Yes [id number] 2.5mg Take 1 [facility] n[facility] XL 2.5 mg 7-05 tablet by it[facility] o f 24 hr 00:00: mouth 2 [place] tablet 00 (two) Medical times Branch daily. Lidocaine 5 2021-0 Yes [id number] Apply to [facility] % cream 7-05 area(s) 2 [facility] of 00:00: (two) [place] 00 times Medical daily as Branch needed for Pain (scale 4-6). Apply 5g to affected areas BID PRN levothyroxi 2-0 Yes [id number] 150ug Take 1 [facility] ne 150 mcg 7-05 tablet by [facility] of tablet 00:00: mouth [place] 00 every Medical morning. Branch Diclofenac 2021-0 Yes [id number] Apply to [facility] Sodium 7-05 area(s) 4 [facility]y of (VOLTAREN) 00:00: (four) [place] 1 % gel 00 times Medical daily. Branch Apply 4 g qid glipiZIDE 2021-0 Yes [id number] 2.5mg Take 1 [facility] n[facility] XL 2.5 mg 7-05 tablet by it[facility] o f 24 hr 00:00: mouth 2 [place] tablet 00 (two) Medical times Branch daily. Lidocaine 5 2021-0 Yes [id number] Apply to [facility] % cream 7-05 area(s) 2 [facility] of 00:00: (two) [place] 00 times Medical daily as Branch needed for Pain (scale 4-6). Apply 5g to affected areas BID PRN levothyroxi 2021-0 Yes [id number] 150ug Take 1 [facility] ne 150 mcg 7-05 tablet by [facility] of tablet 00:00: mouth [place] 00 every Medical morning. Branch Diclofenac 2021-0 Yes [id number] Apply to [facility] Sodium 7-05 area(s) 4 [facility]y of (VOLTAREN) 00:00: (four) [place] 1 % gel 00 times Medical daily. Branch Apply 4 g qid glipiZIDE 2021-0 Yes [id number] 2.5mg Take 1 [facility] n[facility] XL 2.5 mg 7-05 tablet by it[facility] o f 24 hr 00:00: mouth 2 [place] tablet 00 (two) Medical times Branch daily. Lidocaine 5 2021-0 Yes [id number] Apply to [facility] % cream 7-05 area(s) 2 [facility] of 00:00: (two) [place] 00 times Medical daily as Branch needed for Pain (scale 4-6). Apply 5g to affected areas BID PRN levothyroxi 2021-0 Yes [id number] 150ug Take 1 [facility] ne 150 mcg 7-05 tablet by [facility] of tablet 00:00: mouth [place] 00 every Medical morning. Branch Diclofenac 2021-0 Yes [id number] Apply to [facility] Sodium 7-05 area(s) 4 [facility]y of (VOLTAREN) 00:00: (four) [place] 1 % gel 00 times Medical daily. Branch Apply 4 g qid glipiZIDE 2021-0 Yes [id number] 2.5mg Take 1 [facility] n[facility] XL 2.5 mg 7-05 tablet by [facility] o f 24 hr 00:00: mouth 2 [place] tablet 00 (two) Medical times Branch daily. Lidocaine 5 2021-0 Yes [id number] Apply to [facility] % cream 7-05 area(s) 2 [facility] of 00:00: (two) [place] 00 times Medical daily as Branch needed for Pain (scale 4-6). Apply 5g to affected areas BID PRN levothyroxi 2021-0 Yes [id number] 150ug Take 1 [facility] ne 150 mcg 7-05 tablet by [facility] of tablet 00:00: mouth [place] 00 every Medical morning. Branch Diclofenac 2021-0 Yes [id number] Apply to [facility] Sodium 7-05 area(s) 4 [facility]y of (VOLTAREN) 00:00: (four) [place] 1 % gel 00 times Medical daily. Branch Apply 4 g qid glipiZIDE 2021-0 Yes [id number] 2.5mg Take 1 [facility] n[facility] XL 2.5 mg 7-05 tablet by [facility] o f 24 hr 00:00: mouth 2 [place] tablet 00 (two) Medical times Branch daily. Lidocaine 5 2021-0 Yes [id number] Apply to [facility] % cream 7-05 area(s) 2 [facility] of 00:00: (two) [place] 00 times Medical daily as Branch needed for Pain (scale 4-6). Apply 5g to affected areas BID PRN levothyroxi 2021-0 Yes [id number] 150ug Take 1 [facility] ne 150 mcg 7-05 tablet by [facility] of tablet 00:00: mouth [place] 00 every Medical morning. Branch Diclofenac 2021-0 Yes [id number] Apply to [facility] Sodium 7-05 area(s) 4 [facility]y of (VOLTAREN) 00:00: (four) [place] 1 % gel 00 times Medical daily. Branch Apply 4 g qid glipiZIDE 2021-0 Yes [id number] 2.5mg Take 1 [facility] n[facility] XL 2.5 mg 7-05 tablet by it[facility] o f 24 hr 00:00: mouth 2 [place] tablet 00 (two) Medical times Branch daily. Lidocaine 5 2021-0 Yes [id number] Apply to [facility] % cream 7-05 area(s) 2 [facility] of 00:00: (two) [place] 00 times Medical daily as Branch needed for Pain (scale 4-6). Apply 5g to affected areas BID PRN levothyroxi 2022-0 Yes [id number] 150ug Take 1 [facility] ne 150 mcg 7-05 tablet by [facility] of tablet 00:00: mouth [place] 00 every Medical morning. Branch Diclofenac 2021-0 Yes [id number] Apply to [facility] Sodium 7-05 area(s) 4 ity of (VOLTAREN) 00:00: (four) [place] 1 % gel 00 times Medical daily. Branch Apply 4 g qid glipiZIDE 2021-0 Yes [id number] 2.5mg Take 1 [facility] n[facility] XL 2.5 mg 7-05 tablet by it[facility] o f 24 hr 00:00: mouth 2 [place] tablet 00 (two) Medical times Branch daily. Lidocaine 5 2021-0 Yes [id number] Apply to [facility] % cream 7-05 area(s) 2 [facility] of 00:00: (two) [place] 00 times Medical daily as Branch needed for Pain (scale 4-6). Apply 5g to affected areas BID PRN levothyroxi 2021-0 Yes [id number] 150ug Take 1 [facility] ne 150 mcg 7-05 tablet by [facility] of tablet 00:00: mouth [place] 00 every Medical morning. Branch Diclofenac 2021-0 Yes [id number] Apply to [facility] Sodium 7-05 area(s) 4 ity of (VOLTAREN) 00:00: (four) [place] 1 % gel 00 times Medical daily. Branch Apply 4 g qid glipiZIDE 2021-0 Yes [id number] 2.5mg Take 1 [facility] n[facility] XL 2.5 mg 7-05 tablet by [facility] o f 24 hr 00:00: mouth 2 [place] tablet 00 (two) Medical times Branch daily. Lidocaine 5 2021-0 Yes [id number] Apply to [facility] % cream 7-05 area(s) 2 [facility] of 00:00: (two) [place] 00 times Medical daily as Branch needed for Pain (scale 4-6). Apply 5g to affected areas BID PRN levothyroxi 2022-0 Yes [id number] 150ug Take 1 [facility] ne 150 mcg 7-05 tablet by [facility] of tablet 00:00: mouth [place] 00 every Medical morning. Branch Diclofenac 2021-0 Yes [id number] Apply to [facility] Sodium 7-05 area(s) 4 ity of (VOLTAREN) 00:00: (four) [place] 1 % gel 00 times Medical daily. Branch Apply 4 g qid glipiZIDE 2021-0 Yes [id number] 2.5mg Take 1 [facility] n[facility] XL 2.5 mg 7-05 tablet by ity o f 24 hr 00:00: mouth 2 [place] tablet 00 (two) Medical times Branch daily. Lidocaine 5 2021-0 Yes [id number] Apply to [facility] % cream 7-05 area(s) 2 [facility] of 00:00: (two) [place] 00 times Medical daily as Branch needed for Pain (scale 4-6). Apply 5g to affected areas BID PRN levothyroxi 2-0 Yes [id number] 150ug Take 1 [facility] ne 150 mcg 7-05 tablet by [facility] of tablet 00:00: mouth [place] 00 every Medical morning. Branch Diclofenac 2021-0 Yes [id number] Apply to [facility] Sodium 7-05 area(s) 4 ity of (VOLTAREN) 00:00: (four) [place] 1 % gel 00 times Medical daily. Branch Apply 4 g qid glipiZIDE 2021-0 Yes [id number] 2.5mg Take 1 [facility] n[facility] XL 2.5 mg 7-05 tablet by it[facility] o f 24 hr 00:00: mouth 2 [place] tablet 00 (two) Medical times Branch daily. Lidocaine 5 2021-0 Yes [id number] Apply to [facility] % cream 7-05 area(s) 2 [facility] of 00:00: (two) [place] 00 times Medical daily as Branch needed for Pain (scale 4-6). Apply 5g to affected areas BID PRN levothyroxi 2021-0 Yes [id number] 150ug Take 1 [facility] ne 150 mcg 7-05 tablet by [facility] of tablet 00:00: mouth [place] 00 every Medical morning. Branch Diclofenac 2021-0 Yes [id number] Apply to [facility] Sodium 7-05 area(s) 4 ity of (VOLTAREN) 00:00: (four) [place] 1 % gel 00 times Medical daily. Branch Apply 4 g qid glipiZIDE 2021-0 Yes [id number] 2.5mg Take 1 [facility] XL 2.5 mg 7-05 tablet by it[facility] o f 24 hr 00:00: mouth 2 [place] tablet 00 (two) Medical times Branch daily. Lidocaine 5 2021-0 Yes [id number] Apply to [facility] % cream 7-05 area(s) 2 [facility]y of 00:00: (two) [place] 00 times Medical daily as Branch needed for Pain (scale 4-6). Apply 5g to affected areas BID PRN levothyroxi 2022-0 Yes [id number] 150ug Take 1 [facility] ne 150 mcg 7-05 tablet by [facility] of tablet 00:00: mouth [place] 00 every Medical morning. Branch Diclofenac 2021-0 Yes [id number] Apply to [facility] Sodium 7-05 area(s) 4 ity of (VOLTAREN) 00:00: (four) [place] 1 % gel 00 times Medical daily. Branch Apply 4 g qid glipiZIDE 2-0 Yes [id number] 2.5mg Take 1 [facility] n[facility] XL 2.5 mg 7-05 tablet by it[facility] o f 24 hr 00:00: mouth 2 [place] tablet 00 (two) Medical times Branch daily. Lidocaine 5 2021-0 Yes [id number] Apply to [facility] % cream 7-05 area(s) 2 [facility]y of 00:00: (two) [place] 00 times Medical daily as Branch needed for Pain (scale 4-6). Apply 5g to affected areas BID PRN levothyroxi 2-0 Yes [id number] 150ug Take 1 [facility] ne 150 mcg 7-05 tablet by [facility] of tablet 00:00: mouth [place] 00 every Medical morning. Branch Diclofenac 2021-0 Yes [id number] Apply to [facility] Sodium 7-05 area(s) 4 ity of (VOLTAREN) 00:00: (four) [place] 1 % gel 00 times Medical daily. Branch Apply 4 g qid glipiZIDE 2-0 Yes [id number] 2.5mg Take 1 [facility] XL 2.5 mg 7-05 tablet by [facility] o f 24 hr 00:00: mouth 2 [place] tablet 00 (two) Medical times Branch daily. Lidocaine 5 2021-0 Yes [id number] Apply to [facility] % cream 7-05 area(s) 2 [facility] of 00:00: (two) [place] 00 times Medical daily as Branch needed for Pain (scale 4-6). Apply 5g to affected areas BID PRN levothyroxi 2022-0 Yes [id number] 150ug Take 1 [facility] ne 150 mcg 7-05 tablet by [facility] of tablet 00:00: mouth [place] 00 every Medical morning. Branch Diclofenac 2021-0 Yes [id number] Apply to [facility] Sodium 7-05 area(s) 4 ity of (VOLTAREN) 00:00: (four) [place] 1 % gel 00 times Medical daily. Branch Apply 4 g qid glipiZIDE 2021-0 Yes [id number] 2.5mg Take 1 [facility] XL 2.5 mg 7-05 tablet by ity o f 24 hr 00:00: mouth 2 [place] tablet 00 (two) Medical times Branch daily. Lidocaine 5 2021-0 Yes [id number] Apply to [facility] % cream 7-05 area(s) 2 [facility] of 00:00: (two) [place] 00 times Medical daily as Branch needed for Pain (scale 4-6). Apply 5g to affected areas BID PRN levothyroxi 2-0 Yes [id number] 150ug Take 1 [facility] ne 150 mcg 7-05 tablet by [facility] of tablet 00:00: mouth [place] 00 every Medical morning. Branch Diclofenac 2021-0 Yes [id number] Apply to [facility] Sodium 7-05 area(s) 4 ity of (VOLTAREN) 00:00: (four) [place] 1 % gel 00 times Medical daily. Branch Apply 4 g qid glipiZIDE 2021-0 Yes [id number] 2.5mg Take 1 [facility] XL 2.5 mg 7-05 tablet by ity o f 24 hr 00:00: mouth 2 [place] tablet 00 (two) Medical times Branch daily. Lidocaine 5 2021-0 Yes [id number] Apply to [facility] % cream 7-05 area(s) 2 [facility] of 00:00: (two) [place] 00 times Medical daily as Branch needed for Pain (scale 4-6). Apply 5g to affected areas BID PRN levothyroxi 2-0 Yes [id number] 150ug Take 1 [facility] ne 150 mcg 7-05 tablet by [facility] of tablet 00:00: mouth [place] 00 every Medical morning. Branch Diclofenac 2-0 Yes [id number] Apply to [facility] Sodium 7-05 area(s) 4 ity of (VOLTAREN) 00:00: (four) [place] 1 % gel 00 times Medical daily. Branch Apply 4 g qid glipiZIDE 2-0 Yes [id number] 2.5mg Take 1 [facility] XL 2.5 mg 7-05 tablet by [facility] o f 24 hr 00:00: mouth 2 [place] tablet 00 (two) Medical times Branch daily. Lidocaine 5 2021-0 Yes [id number] Apply to [facility] % cream 7-05 area(s) 2 [facility] of 00:00: (two) [place] 00 times Medical daily as Branch needed for Pain (scale 4-6). Apply 5g to affected areas BID PRN levothyroxi 2021-0 Yes [id number] 150ug Take 1 [facility] ne 150 mcg 7-05 tablet by [facility] of tablet 00:00: mouth [place] 00 every Medical morning. Branch Diclofenac 2021- Yes [id number] Apply to [facility] Sodium 7-05 area(s) 4 ity of (VOLTAREN) 00:00: (four) [place] 1 % gel 00 times Medical daily. Branch Apply 4 g qid glipiZIDE Yes [id number] 2.5mg Take 1 [facility] XL 2.5 mg 7-05 tablet by [facility] o f 24 hr 00:00: mouth 2 [place] tablet 00 (two) Medical times Branch daily. Lidocaine 5 Yes [id number] Apply to [facility] % cream 7-05 area(s) 2 [facility] of 00:00: (two) [place] 00 times Medical daily as Branch needed for Pain (scale 4-6). Apply 5g to affected areas BID PRN levothyroxi 2021-2022- No [id number] 150ug Take 1 [facility] ne 150 mcg 7-05 01-05 tablet by [facility] of tablet 00:00: 00:00 mouth [place] 00 :00 every Medical morning. Branch Diclofenac 2021-0 2022- No [id number] Apply to [facility] Sodium 7-05 01-05 area(s) 4 ity of (VOLTAREN) 00:00: 00:00 (four) [place] 1 % gel 00 :00 times Medical daily. Branch Apply 4 g qid glipiZIDE 2021-0 3- No [id number] 2.5mg Take 1 [facility] XL 2.5 mg 7-05 01-05 tablet by [facility] of 24 hr 00:00: 00:00 mouth 2 [place] tablet 00 :00 (two) Medical times Branch daily. Lidocaine 5 2021-0 2022- No [id number] Apply to [facility] % cream 7-05 01-05 area(s) 2 [facility] of 00:00: 00:00 (two) [place] 00 :00 times Medical daily as Branch needed for Pain (scale 4-6). Apply 5g to affected areas BID PRN levothyroxi 2022- No [id number] 150ug Take 1 [facility] ne 150 mcg 09-05 tablet by [facility] of tablet 00:00: 00:00 mouth [place] 00 :00 every Medical morning. Branch Diclofenac 2022- No [id number] Apply to [facility] Sodium 09-05 area(s) 4 ity of (VOLTAREN) 00:00: 00:00 (four) [place] 1 % gel 00 :00 times Medical daily. Branch Apply 4 g qid glipiZIDE 2022- No [id number] 2.5mg Take 1 [facility] XL 2.5 mg 09-05 tablet by [facility] of 24 hr 00:00: 00:00 mouth 2 [place] tablet 00 :00 (two) Medical times Branch daily. Lidocaine 5 2022- No [id number] Apply to [facility] % cream 09-05 area(s) 2 [facility] of 00:00: 00:00 (two) [place] 00 :00 times Medical daily as Branch needed for Pain (scale 4-6). Apply 5g to affected areas BID PRN levothyroxi 2022- No [id number] 150ug Take 1 [facility] ne 150 mcg 09-05 tablet by [facility] of tablet 00:00: 00:00 mouth [place] 00 :00 every Medical morning. Branch Diclofenac 2022- No [id number] Apply to [facility] Sodium 09-05 area(s) 4 ity of (VOLTAREN) 00:00: 00:00 (four) [place] 1 % gel 00 :00 times Medical daily. Branch Apply 4 g qid glipiZIDE 2022- No [id number] 2.5mg Take 1 [facility] XL 2.5 mg 09-05 tablet by [facility] of 24 hr 00:00: 00:00 mouth 2 [place] tablet 00 :00 (two) Medical times Branch daily. Lidocaine 5 2022- No [id number] Apply to [facility] % cream 09-05 area(s) 2 [facility] of 00:00: 00:00 (two) [place] 00 :00 times Medical daily as Branch needed for Pain (scale 4-6). Apply 5g to affected areas BID PRN levothyroxi 2022- No [id number] 150ug Take 1 [facility] ne 150 mcg 09-05 tablet by [facility] of tablet 00:00: 00:00 mouth [place] 00 :00 every Medical morning. Branch Diclofenac 2022- No [id number] Apply to [facility] Sodium 09-05 area(s) 4 ity of (VOLTAREN) 00:00: 00:00 (four) [place] 1 % gel 00 :00 times Medical daily. Branch Apply 4 g qid glipiZIDE 2022- No [id number] 2.5mg Take 1 [facility] XL 2.5 mg 09-05 tablet by [facility] of 24 hr 00:00: 00:00 mouth 2 [place] tablet 00 :00 (two) Medical times Branch daily. Lidocaine 5 2022- No [id number] Apply to [facility] % cream 09-05 area(s) 2 [facility] of 00:00: 00:00 (two) [place] 00 :00 times Medical daily as Branch needed for Pain (scale 4-6). Apply 5g to affected areas BID PRN baclofen 10 2021- No [id number] 10mg Take 1 [facility] mg tablet 09-05 tablet by [facility] of 00:00: 00:00 mouth 3 [place] 00 :00 (three) Medical times Branch daily as needed for Pain (scale 7-10). docusate 2021- No [id number] 100mg Take 1 [facility] 100 mg -05 -05 capsule by [facility] of capsule 00:00: 00:00 mouth 2 [place] 00 :00 (two) Medical times Branch daily. docusate 2021- No [id number] 100mg Take 1 [facility] 100 mg 7-05 10-05 capsule by [facility] of capsule 00:00: 00:00 mouth 2 [place] 00 :00 (two) Medical times Branch daily. docusate 2021- No [id number] 100mg Take 1 [facility] 100 mg -07 11-05 capsule by [facility] of capsule 00:00: 00:00 mouth 2 [place] 00 :00 (two) Medical times Branch daily. pravastatin 0 Yes [id number] 40mg Take 1 [facility] 40 mg 3-30 tablet by [facility] of tablet 00:00: mouth at [place] 00 bedtime. Medical Branch tamsulosin 0 Yes [id number] .4mg Take 1 [facility] 0.4 mg 24 3-30 9102 capsule by [facility]y of hr capsule 00:00: mouth [place] 00 daily. Medical Branch ergocalcife 2021-0 Yes [id number] Take 1 [facility] rol, 3-30 capsule by [facility] of vitamin d2, 00:00: mouth [place] 1,250 mcg 00 weekly. Medical (50,000 Branch unit) capsule traZODone 0 Yes [id number] 50mg Take 1 [facility] 50 mg 3-30 tablet by [facility] of tablet 00:00: mouth at [place] 00 bedtime. Medical Branch pravastatin 0 Yes [id number] 40mg Take 1 [facility] 40 mg 3-30 tablet by [facility] of tablet 00:00: mouth at [place] 00 bedtime. Medical Branch tamsulosin 0 Yes [id number] .4mg Take 1 [facility] 0.4 mg 24 3-30 9102 capsule by [facility]y of hr capsule 00:00: mouth [place] 00 daily. Medical Branch ergocalcife 2021-0 Yes [id number] Take 1 [facility] rol, 3-30 capsule by [facility]y of vitamin d2, 00:00: mouth [place] 1,250 mcg 00 weekly. Medical (50,000 Branch unit) capsule traZODone 2021-0 Yes [id number] 50mg Take 1 [facility] 50 mg 3-30 tablet by [facility] of tablet 00:00: mouth at [place] 00 bedtime. Medical Branch pravastatin 0 Yes [id number] 40mg Take 1 [facility] 40 mg 3-30 tablet by [facility] of tablet 00:00: mouth at [place] 00 bedtime. Medical Branch tamsulosin 0 Yes [id number] .4mg Take 1 [facility] 0.4 mg 24 3-30 9102 capsule by [facility]y of hr capsule 00:00: mouth [place] 00 daily. Medical Branch ergocalcife 2021-0 Yes [id number] Take 1 [facility] rol, 3-30 capsule by ity of vitamin d2, 00:00: mouth [place] 1,250 mcg 00 weekly. Medical (50,000 Branch unit) capsule traZODone 2021-0 Yes [id number] 50mg Take 1 [facility] 50 mg 3-30 tablet by [facility]y of tablet 00:00: mouth at [place] 00 bedtime. Medical Branch pravastatin 2021-0 Yes [id number] 40mg Take 1 [facility] 40 mg 3-30 tablet by [facility] of tablet 00:00: mouth at [place] 00 bedtime. Medical Branch tamsulosin 2021-0 Yes [id number] .4mg Take 1 [facility] 0.4 mg 24 3-30 9102 capsule by ity of hr capsule 00:00: mouth [place] 00 daily. Medical Branch ergocalcife 2021-0 Yes [id number] Take 1 [facility] rol, 3-30 capsule by ity of vitamin d2, 00:00: mouth [place] 1,250 mcg 00 weekly. Medical (50,000 Branch unit) capsule traZODone 2021-0 Yes [id number] 50mg Take 1 [facility] n[facility] 50 mg 3-30 tablet by [facility]y of tablet 00:00: mouth at [place] 00 bedtime. Medical Branch pravastatin 2021-0 Yes [id number] 40mg Take 1 [facility] 40 mg 3-30 tablet by [facility]y of tablet 00:00: mouth at [place] 00 bedtime. Medical Branch tamsulosin 2021-0 Yes [id number] .4mg Take 1 [facility] 0.4 mg 24 3-30 9102 capsule by ity of hr capsule 00:00: mouth [place] 00 daily. Medical Branch ergocalcife 2021-0 Yes [id number] Take 1 [facility] rol, 3-30 capsule by ity of vitamin d2, 00:00: mouth [place] 1,250 mcg 00 weekly. Medical (50,000 Branch unit) capsule traZODone 2021-0 Yes [id number] 50mg Take 1 [facility] 50 mg 3-30 tablet by ity of tablet 00:00: mouth at [place] 00 bedtime. Medical Branch pravastatin 2021-0 Yes [id number] 40mg Take 1 [facility] 40 mg 3-30 tablet by ity of tablet 00:00: mouth at [place] 00 bedtime. Medical Branch tamsulosin 2021-0 Yes [id number] .4mg Take 1 [facility] 0.4 mg 24 3-30 9102 capsule by ity of hr capsule 00:00: mouth [place] 00 daily. Medical Branch ergocalcife 2021-0 Yes [id number] Take 1 [facility] rol, 3-30 capsule by ity of vitamin d2, 00:00: mouth [place] 1,250 mcg 00 weekly. Medical (50,000 Branch unit) capsule traZODone 2021-0 Yes [id number] 50mg Take 1 [facility] n[facility] 50 mg 3-30 tablet by ity of tablet 00:00: mouth at [place] 00 bedtime. Medical Branch pravastatin 2021-0 Yes [id number] 40mg Take 1 [facility] 40 mg 3-30 tablet by ity of tablet 00:00: mouth at [place] 00 bedtime. Medical Branch tamsulosin 0 Yes [id number] .4mg Take 1 [facility] 0.4 mg 24 3-30 9102 capsule by ity of hr capsule 00:00: mouth [place] 00 daily. Medical Branch ergocalcife 2021-0 Yes [id number] Take 1 [facility] rol, 3-30 capsule by ity of vitamin d2, 00:00: mouth [place] 1,250 mcg 00 weekly. Medical (50,000 Branch unit) capsule traZODone 0 Yes [id number] 50mg Take 1 [facility] nivers 50 mg 3-30 tablet by ity of tablet 00:00: mouth at [place] 00 bedtime. Medical Branch pravastatin 0 Yes [id number] 40mg Take 1 [facility] 40 mg 3-30 tablet by ity of tablet 00:00: mouth at [place] 00 bedtime. Medical Branch tamsulosin 2021-0 Yes [id number] .4mg Take 1 [facility] 0.4 mg 24 3-30 9102 capsule by ity of hr capsule 00:00: mouth [place] 00 daily. Medical Branch ergocalcife 2021-0 Yes [id number] Take 1 [facility] rol, 3-30 capsule by ity of vitamin d2, 00:00: mouth [place] 1,250 mcg 00 weekly. Medical (50,000 Branch unit) capsule traZODone 2021-0 Yes [id number] 50mg Take 1 [facility] nivers 50 mg 3-30 tablet by ity of tablet 00:00: mouth at [place] 00 bedtime. Medical Branch pravastatin 2021-0 Yes [id number] 40mg Take 1 [facility] 40 mg 3-30 tablet by ity of tablet 00:00: mouth at [place] 00 bedtime. Medical Branch tamsulosin 2021-0 Yes [id number] .4mg Take 1 [facility] 0.4 mg 24 3-30 9102 capsule by ity of hr capsule 00:00: mouth [place] 00 daily. Medical Branch ergocalcife 2021-0 Yes [id number] Take 1 [facility] rol, 3-30 capsule by ity of vitamin d2, 00:00: mouth [place] 1,250 mcg 00 weekly. Medical (50,000 Branch unit) capsule traZODone 2021-0 Yes [id number] 50mg Take 1 [facility] 50 mg 3-30 tablet by ity of tablet 00:00: mouth at [place] 00 bedtime. Medical Branch pravastatin 2021-0 Yes [id number] 40mg Take 1 [facility] 40 mg 3-30 tablet by ity of tablet 00:00: mouth at [place] 00 bedtime. Medical Branch tamsulosin 0 Yes [id number] .4mg Take 1 [facility] 0.4 mg 24 3-30 9102 capsule by ity of hr capsule 00:00: mouth [place] 00 daily. Medical Branch ergocalcife 2021-0 Yes [id number] Take 1 [facility] rol, 3-30 capsule by ity of vitamin d2, 00:00: mouth [place] 1,250 mcg 00 weekly. Medical (50,000 Branch unit) capsule traZODone 2021-0 Yes [id number] 50mg Take 1 [facility] nivers 50 mg 3-30 tablet by ity of tablet 00:00: mouth at [place] 00 bedtime. Medical Branch pravastatin 2021-0 Yes [id number] 40mg Take 1 [facility] 40 mg 3-30 tablet by ity of tablet 00:00: mouth at [place] 00 bedtime. Medical Branch tamsulosin 2021-0 Yes [id number] .4mg Take 1 [facility] 0.4 mg 24 3-30 9102 capsule by ity of hr capsule 00:00: mouth [place] 00 daily. Medical Branch ergocalcife 2021-0 Yes [id number] Take 1 [facility] rol, 3-30 capsule by ity of vitamin d2, 00:00: mouth [place] 1,250 mcg 00 weekly. Medical (50,000 Branch unit) capsule traZODone 2021-0 Yes [id number] 50mg Take 1 [facility] nivers 50 mg 3-30 tablet by ity of tablet 00:00: mouth at [place] 00 bedtime. Medical Branch pravastatin 2021-0 Yes [id number] 40mg Take 1 [facility] 40 mg 3-30 tablet by ity of tablet 00:00: mouth at [place] 00 bedtime. Medical Branch tamsulosin 2021-0 Yes [id number] .4mg Take 1 [facility] 0.4 mg 24 3-30 9102 capsule by ity of hr capsule 00:00: mouth [place] 00 daily. Medical Branch ergocalcife 2021-0 Yes [id number] Take 1 [facility] rol, 3-30 capsule by ity of vitamin d2, 00:00: mouth [place] 1,250 mcg 00 weekly. Medical (50,000 Branch unit) capsule traZODone 2021-0 Yes [id number] 50mg Take 1 [facility] nivers 50 mg 3-30 tablet by ity of tablet 00:00: mouth at [place] 00 bedtime. Medical Branch pravastatin 2021-0 Yes [id number] 40mg Take 1 [facility] 40 mg 3-30 tablet by ity of tablet 00:00: mouth at [place] 00 bedtime. Medical Branch tamsulosin 0 Yes [id number] .4mg Take 1 [facility] 0.4 mg 24 3-30 9102 capsule by ity of hr capsule 00:00: mouth [place] 00 daily. Medical Branch ergocalcife 2021-0 Yes [id number] Take 1 [facility] rol, 3-30 capsule by ity of vitamin d2, 00:00: mouth [place] 1,250 mcg 00 weekly. Medical (50,000 Branch unit) capsule traZODone 2021-0 Yes [id number] 50mg Take 1 [facility] nivers 50 mg 3-30 tablet by ity of tablet 00:00: mouth at [place] 00 bedtime. Medical Branch pravastatin 2021-0 Yes [id number] 40mg Take 1 [facility] 40 mg 3-30 tablet by ity of tablet 00:00: mouth at [place] 00 bedtime. Medical Branch tamsulosin 2021-0 Yes [id number] .4mg Take 1 [facility] 0.4 mg 24 3-30 9102 capsule by ity of hr capsule 00:00: mouth [place] 00 daily. Medical Branch ergocalcife 2021-0 Yes [id number] Take 1 [facility] rol, 3-30 capsule by ity of vitamin d2, 00:00: mouth [place] 1,250 mcg 00 weekly. Medical (50,000 Branch unit) capsule traZODone 2021-0 Yes [id number] 50mg Take 1 [facility] nivers 50 mg 3-30 tablet by ity of tablet 00:00: mouth at [place] 00 bedtime. Medical Branch pravastatin 0 Yes [id number] 40mg Take 1 [facility] 40 mg 3-30 tablet by ity of tablet 00:00: mouth at [place] 00 bedtime. Medical Branch tamsulosin 0 Yes [id number] .4mg Take 1 [facility] 0.4 mg 24 3-30 9102 capsule by ity of hr capsule 00:00: mouth [place] 00 daily. Medical Branch ergocalcife 0 Yes [id number] Take 1 [facility] rol, 3-30 capsule by ity of vitamin d2, 00:00: mouth [place] 1,250 mcg 00 weekly. Medical (50,000 Branch unit) capsule traZODone 0 Yes [id number] 50mg Take 1 [facility] nivers 50 mg 3-30 tablet by ity of tablet 00:00: mouth at [place] 00 bedtime. Medical Branch pravastatin 0 Yes [id number] 40mg Take 1 [facility] 40 mg 3-30 tablet by ity of tablet 00:00: mouth at [place] 00 bedtime. Medical Branch tamsulosin 0 Yes [id number] .4mg Take 1 [facility] 0.4 mg 24 3-30 9102 capsule by ity of hr capsule 00:00: mouth [place] 00 daily. Medical Branch ergocalcife 2021-0 Yes [id number] Take 1 [facility] rol, 3-30 capsule by ity of vitamin d2, 00:00: mouth [place] 1,250 mcg 00 weekly. Medical (50,000 Branch unit) capsule traZODone 2021-0 Yes [id number] 50mg Take 1 [facility] nivers 50 mg 3-30 tablet by ity of tablet 00:00: mouth at [place] 00 bedtime. Medical Branch pravastatin 0 Yes [id number] 40mg Take 1 [facility] 40 mg 3-30 tablet by ity of tablet 00:00: mouth at [place] 00 bedtime. Medical Branch tamsulosin 2021-0 Yes [id number] .4mg Take 1 [facility] 0.4 mg 24 3-30 9102 capsule by ity of hr capsule 00:00: mouth [place] 00 daily. Medical Branch ergocalcife 2021-0 Yes [id number] Take 1 [facility] rol, 3-30 capsule by ity of vitamin d2, 00:00: mouth [place] 1,250 mcg 00 weekly. Medical (50,000 Branch unit) capsule traZODone 2021-0 Yes [id number] 50mg Take 1 [facility] nivers 50 mg 3-30 tablet by ity of tablet 00:00: mouth at [place] 00 bedtime. Medical Branch pravastatin 2021-0 Yes [id number] 40mg Take 1 [facility] 40 mg 3-30 tablet by ity of tablet 00:00: mouth at [place] 00 bedtime. Medical Branch tamsulosin 2021-0 Yes [id number] .4mg Take 1 [facility] 0.4 mg 24 3-30 9102 capsule by ity of hr capsule 00:00: mouth [place] 00 daily. Medical Branch ergocalcife 2021-0 Yes [id number] Take 1 [facility] rol, 3-30 capsule by ity of vitamin d2, 00:00: mouth [place] 1,250 mcg 00 weekly. Medical (50,000 Branch unit) capsule traZODone 2021-0 Yes [id number] 50mg Take 1 [facility] nivers 50 mg 3-30 tablet by ity of tablet 00:00: mouth at [place] 00 bedtime. Medical Branch pravastatin 2021-0 Yes [id number] 40mg Take 1 [facility] 40 mg 3-30 tablet by ity of tablet 00:00: mouth at [place] 00 bedtime. Medical Branch tamsulosin 2021-0 Yes [id number] .4mg Take 1 [facility] 0.4 mg 24 3-30 9102 capsule by ity of hr capsule 00:00: mouth [place] 00 daily. Medical Branch ergocalcife 2021-0 Yes [id number] Take 1 [facility] rol, 3-30 capsule by ity of vitamin d2, 00:00: mouth [place] 1,250 mcg 00 weekly. Medical (50,000 Branch unit) capsule traZODone 2021-0 Yes [id number] 50mg Take 1 [facility] nivers 50 mg 3-30 tablet by ity of tablet 00:00: mouth at [place] 00 bedtime. Medical Branch pravastatin 2021-0 Yes [id number] 40mg Take 1 [facility] 40 mg 3-30 tablet by ity of tablet 00:00: mouth at [place] 00 bedtime. Medical Branch tamsulosin 0 Yes [id number] .4mg Take 1 [facility] 0.4 mg 24 3-30 9102 capsule by ity of hr capsule 00:00: mouth [place] 00 daily. Medical Branch ergocalcife 0 Yes [id number] Take 1 [facility] rol, 3-30 capsule by ity of vitamin d2, 00:00: mouth [place] 1,250 mcg 00 weekly. Medical (50,000 Branch unit) capsule traZODone 0 Yes [id number] 50mg Take 1 [facility] nivers 50 mg 3-30 tablet by ity of tablet 00:00: mouth at [place] 00 bedtime. Medical Branch pravastatin Yes [id number] 40mg Take 1 [facility] 40 mg 3-30 tablet by ity of tablet 00:00: mouth at [place] 00 bedtime. Medical Branch tamsulosin Yes [id number] .4mg Take 1 [facility] 0.4 mg 24 3-30 9102 capsule by ity of hr capsule 00:00: mouth [place] 00 daily. Medical Branch ergocalcife 0 Yes [id number] Take 1 [facility] rol, 3-30 capsule by ity of vitamin d2, 00:00: mouth [place] 1,250 mcg 00 weekly. Medical (50,000 Branch unit) capsule traZODone 0 Yes [id number] 50mg Take 1 [facility] nivers 50 mg 3-30 tablet by ity of tablet 00:00: mouth at [place] 00 bedtime. Medical Branch pravastatin 0 Yes [id number] 40mg Take 1 [facility] 40 mg 3-30 tablet by ity of tablet 00:00: mouth at [place] 00 bedtime. Medical Branch tamsulosin Yes [id number] .4mg Take 1 [facility] 0.4 mg 24 3-30 9102 capsule by ity of hr capsule 00:00: mouth [place] 00 daily. Medical Branch ergocalcife 0 Yes [id number] Take 1 [facility] rol, 3-30 capsule by ity of vitamin d2, 00:00: mouth [place] 1,250 mcg 00 weekly. Medical (50,000 Branch unit) capsule traZODone 0 Yes [id number] 50mg Take 1 [facility] nivers 50 mg 3-30 tablet by ity of tablet 00:00: mouth at [place] 00 bedtime. Medical Branch pravastatin 2021-0 Yes [id number] 40mg Take 1 [facility] 40 mg 3-30 tablet by ity of tablet 00:00: mouth at [place] 00 bedtime. Medical Branch tamsulosin 0 Yes [id number] .4mg Take 1 [facility] 0.4 mg 24 3-30 9102 capsule by ity of hr capsule 00:00: mouth [place] 00 daily. Medical Branch ergocalcife 2021-0 Yes [id number] Take 1 [facility] rol, 3-30 capsule by ity of vitamin d2, 00:00: mouth [place] 1,250 mcg 00 weekly. Medical (50,000 Branch unit) capsule traZODone 0 Yes [id number] 50mg Take 1 [facility] nivers 50 mg 3-30 tablet by ity of tablet 00:00: mouth at [place] 00 bedtime. Medical Branch pravastatin 0 Yes [id number] 40mg Take 1 [facility] 40 mg 3-30 tablet by ity of tablet 00:00: mouth at [place] 00 bedtime. Medical Branch tamsulosin 0 Yes [id number] .4mg Take 1 [facility] 0.4 mg 24 3-30 9102 capsule by ity of hr capsule 00:00: mouth [place] 00 daily. Medical Branch ergocalcife 0 Yes [id number] Take 1 [facility] rol, 3-30 capsule by ity of vitamin d2, 00:00: mouth [place] 1,250 mcg 00 weekly. Medical (50,000 Branch unit) capsule traZODone 2021-0 Yes [id number] 50mg Take 1 [facility] nivers 50 mg 3-30 tablet by ity of tablet 00:00: mouth at [place] 00 bedtime. Medical Branch pravastatin 2021-0 Yes [id number] 40mg Take 1 [facility] 40 mg 3-30 tablet by ity of tablet 00:00: mouth at [place] 00 bedtime. Medical Branch tamsulosin 0 Yes [id number] .4mg Take 1 [facility] 0.4 mg 24 3-30 9102 capsule by ity of hr capsule 00:00: mouth [place] 00 daily. Medical Branch ergocalcife 2021-0 Yes [id number] Take 1 [facility] rol, 3-30 capsule by ity of vitamin d2, 00:00: mouth [place] 1,250 mcg 00 weekly. Medical (50,000 Branch unit) capsule traZODone 0 Yes [id number] 50mg Take 1 [facility] nivers 50 mg 3-30 tablet by ity of tablet 00:00: mouth at [place] 00 bedtime. Medical Branch pravastatin 0 Yes [id number] 40mg Take 1 [facility] 40 mg 3-30 tablet by ity of tablet 00:00: mouth at [place] 00 bedtime. Medical Branch tamsulosin Yes [id number] .4mg Take 1 [facility] 0.4 mg 24 3-30 9102 capsule by ity of hr capsule 00:00: mouth [place] 00 daily. Medical Branch ergocalcife Yes [id number] Take 1 [facility] rol, 3-30 capsule by ity of vitamin d2, 00:00: mouth [place] 1,250 mcg 00 weekly. Medical (50,000 Branch unit) capsule traZODone 0 Yes [id number] 50mg Take 1 [facility] nivers 50 mg 3-30 tablet by ity of tablet 00:00: mouth at [place] 00 bedtime. Medical Branch pravastatin Yes [id number] 40mg Take 1 [facility] 40 mg 3-30 tablet by ity of tablet 00:00: mouth at [place] 00 bedtime. Medical Branch tamsulosin Yes [id number] .4mg Take 1 [facility] 0.4 mg 24 3-30 9102 capsule by ity of hr capsule 00:00: mouth [place] 00 daily. Medical Branch ergocalcife 0 Yes [id number] Take 1 [facility] rol, 3-30 capsule by ity of vitamin d2, 00:00: mouth [place] 1,250 mcg 00 weekly. Medical (50,000 Branch unit) capsule traZODone 0 Yes [id number] 50mg Take 1 [facility] nivers 50 mg 3-30 tablet by ity of tablet 00:00: mouth at [place] 00 bedtime. Medical Branch pravastatin 0 Yes [id number] 40mg Take 1 [facility] 40 mg 3-30 tablet by ity of tablet 00:00: mouth at [place] 00 bedtime. Medical Branch tamsulosin Yes [id number] .4mg Take 1 [facility] 0.4 mg 24 3-30 9102 capsule by ity of hr capsule 00:00: mouth [place] 00 daily. Medical Branch ergocalcife 2021-0 Yes [id number] Take 1 [facility] rol, 3-30 capsule by ity of vitamin d2, 00:00: mouth [place] 1,250 mcg 00 weekly. Medical (50,000 Branch unit) capsule traZODone 2021-0 Yes [id number] 50mg Take 1 [facility] 50 mg 3-30 tablet by [facility]y of tablet 00:00: mouth at [place] 00 bedtime. Medical Branch pravastatin 0 Yes [id number] 40mg Take 1 [facility] 40 mg 3-30 tablet by ity of tablet 00:00: mouth at [place] 00 bedtime. Medical Branch tamsulosin Yes [id number] .4mg Take 1 [facility] 0.4 mg 24 3-30 9102 capsule by ity of hr capsule 00:00: mouth [place] 00 daily. Medical Branch ergocalcife 0 Yes [id number] Take 1 [facility] rol, 3-30 capsule by ity of vitamin d2, 00:00: mouth [place] 1,250 mcg 00 weekly. Medical (50,000 Branch unit) capsule traZODone 0 Yes [id number] 50mg Take 1 [facility] nivers 50 mg 3-30 tablet by ity of tablet 00:00: mouth at [place] 00 bedtime. Medical Branch pravastatin 0 Yes [id number] 40mg Take 1 [facility] 40 mg 3-30 tablet by ity of tablet 00:00: mouth at [place] 00 bedtime. Medical Branch tamsulosin 0 Yes [id number] .4mg Take 1 [facility] 0.4 mg 24 3-30 9102 capsule by [facility]y of hr capsule 00:00: mouth [place] 00 daily. Medical Branch ergocalcife 0 Yes [id number] Take 1 [facility] rol, 3-30 capsule by ity of vitamin d2, 00:00: mouth [place] 1,250 mcg 00 weekly. Medical (50,000 Branch unit) capsule traZODone 2021-0 Yes [id number] 50mg Take 1 [facility] 50 mg 3-30 tablet by [facility] tablet 00:00: mouth at [place] 00 bedtime. [facility] pravastatin 2021-0 Yes [id number] 40mg Take 1 [facility] 40 mg 3-30 tablet by [facility] tablet 00:00: mouth at [place] 00 bedtime. [facility] tamsulosin 0 Yes [id number] .4mg Take 1 [facility] 0.4 mg 24 3-30 9102 capsule by [facility] of hr capsule 00:00: mouth [place] 00 daily. [facility] ergocalcife 2021-0 Yes [id number] Take 1 [facility] rol, 3-30 capsule by [facility] of vitamin d2, 00:00: mouth [place] 1,250 mcg 00 weekly. Medical (50,000 Branch unit) capsule traZODone 2021-0 Yes [id number] 50mg Take 1 [facility] 50 mg 3-30 tablet by [facility] tablet 00:00: mouth at [place] 00 bedtime. [facility] pravastatin 0 Yes [id number] 40mg Take 1 [facility] 40 mg 3-30 tablet by [facility] tablet 00:00: mouth at [place] 00 bedtime. [facility] tamsulosin 0 Yes [id number] .4mg Take 1 [facility] 0.4 mg 24 3-30 9102 capsule by [facility] of hr capsule 00:00: mouth [place] 00 daily. [facility] ergocalcife 0 Yes [id number] Take 1 [facility] rol, 3-30 capsule by [facility] of vitamin d2, 00:00: mouth [place] 1,250 mcg 00 weekly. Medical (50,000 Branch unit) capsule traZODone 2021-0 Yes [id number] 50mg Take 1 [facility] 50 mg 3-30 tablet by [facility] tablet 00:00: mouth at [place] 00 bedtime. [facility] tamsulosin 0 Yes [id number] .4mg Take 1 [facility] 0.4 mg 24 3-30 9102 capsule by [facility] of hr capsule 00:00: mouth [place] 00 daily. [facility] ergocalcife 0 Yes [id number] Take 1 [facility] rol, 3-30 capsule by [facility] of vitamin d2, 00:00: mouth [place] 1,250 mcg 00 weekly. Medical (50,000 Branch unit) capsule traZODone 2021-0 Yes [id number] 50mg Take 1 [facility] 50 mg 3-30 tablet by [facility] of tablet 00:00: mouth at [place] 00 bedtime. [facility] tamsulosin 2021-0 Yes [id number] .4mg Take 1 [facility] 0.4 mg 24 3-30 9102 capsule by [facility] of hr capsule 00:00: mouth [place] 00 daily. [facility] ergocalcife 2021-0 Yes [id number] Take 1 [facility] rol, 3-30 capsule by [facility] of vitamin d2, 00:00: mouth [place] 1,250 mcg 00 weekly. Medical (50,000 Branch unit) capsule traZODone 2021-0 Yes [id number] 50mg Take 1 [facility] 50 mg 3-30 tablet by [facility] of tablet 00:00: mouth at [place] 00 bedtime. [facility] tamsulosin 0 Yes [id number] .4mg Take 1 [facility] 0.4 mg 24 3-30 9102 capsule by [facility]y of hr capsule 00:00: mouth [place] 00 daily. [facility] ergocalcife 0 Yes [id number] Take 1 [facility] rol, 3-30 capsule by [facility] of vitamin d2, 00:00: mouth [place] 1,250 mcg 00 weekly. Medical (50,000 Branch unit) capsule traZODone 2021-0 Yes [id number] 50mg Take 1 [facility] 50 mg 3-30 tablet by [facility] of tablet 00:00: mouth at [place] 00 bedtime. [facility] tamsulosin 0 Yes [id number] .4mg Take 1 [facility] 0.4 mg 24 3-30 9102 capsule by [facility] of hr capsule 00:00: mouth [place] 00 daily. [facility] ergocalcife 2021-0 Yes [id number] Take 1 [facility] rol, 3-30 capsule by [facility] of vitamin d2, 00:00: mouth [place] 1,250 mcg 00 weekly. Medical (50,000 Branch unit) capsule traZODone 2021-0 Yes [id number] 50mg Take 1 [facility] 50 mg 3-30 tablet by [facility] of tablet 00:00: mouth at [place] 00 bedtime. [facility] tamsulosin 2021-0 Yes [id number] .4mg Take 1 [facility] 0.4 mg 24 3-30 9102 capsule by [facility]y of hr capsule 00:00: mouth [place] 00 daily. [facility] ergocalcife 2021-0 Yes [id number] Take 1 [facility] rol, 3-30 capsule by ity of vitamin d2, 00:00: mouth [place] 1,250 mcg 00 weekly. Medical (50,000 Branch unit) capsule traZODone 2021-0 Yes [id number] 50mg Take 1 [facility] 50 mg 3-30 tablet by [facility] of tablet 00:00: mouth at [place] 00 bedtime. [facility] tamsulosin 2021-0 Yes [id number] .4mg Take 1 [facility] 0.4 mg 24 3-30 9102 capsule by [facility] of hr capsule 00:00: mouth [place] 00 daily. [facility] ergocalcife 2021-0 Yes [id number] Take 1 [facility] rol, 3-30 capsule by [facility]y of vitamin d2, 00:00: mouth [place] 1,250 mcg 00 weekly. Medical (50,000 Branch unit) capsule traZODone 2021-0 Yes [id number] 50mg Take 1 [facility] 50 mg 3-30 tablet by [facility] of tablet 00:00: mouth at [place] 00 bedtime. [facility] tamsulosin 2021-0 Yes [id number] .4mg Take 1 [facility] 0.4 mg 24 3-30 9102 capsule by [facility]y of hr capsule 00:00: mouth [place] 00 daily. [facility] ergocalcife 2021-0 Yes [id number] Take 1 [facility] rol, 3-30 capsule by ity of vitamin d2, 00:00: mouth [place] 1,250 mcg 00 weekly. Medical (50,000 Branch unit) capsule traZODone 2021-0 Yes [id number] 50mg Take 1 [facility] 50 mg 3-30 tablet by [facility] of tablet 00:00: mouth at [place] 00 bedtime. [facility] tamsulosin 2021-0 Yes [id number] .4mg Take 1 [facility] 0.4 mg 24 3-30 9102 capsule by [facility]y of hr capsule 00:00: mouth [place] 00 daily. [facility] ergocalcife 2021-0 Yes [id number] Take 1 [facility] rol, 3-30 capsule by [facility] of vitamin d2, 00:00: mouth [place] 1,250 mcg 00 weekly. Medical (50,000 Branch unit) capsule traZODone 2021-0 Yes [id number] 50mg Take 1 [facility] 50 mg 3-30 tablet by [facility] of tablet 00:00: mouth at [place] 00 bedtime. [facility] tamsulosin 0 Yes [id number] .4mg Take 1 [facility] 0.4 mg 24 3-30 9102 capsule by [facility]y of hr capsule 00:00: mouth [place] 00 daily. [facility] ergocalcife 2021-0 Yes [id number] Take 1 [facility] rol, 3-30 capsule by ity of vitamin d2, 00:00: mouth [place] 1,250 mcg 00 weekly. Medical (50,000 Branch unit) capsule traZODone 0 Yes [id number] 50mg Take 1 [facility] 50 mg 3-30 tablet by [facility] of tablet 00:00: mouth at [place] 00 bedtime. [facility] tamsulosin 0 Yes [id number] .4mg Take 1 [facility] 0.4 mg 24 3-30 9102 capsule by [facility] of hr capsule 00:00: mouth [place] 00 daily. [facility] ergocalcife 0 Yes [id number] Take 1 [facility] rol, 3-30 capsule by ity of vitamin d2, 00:00: mouth [place] 1,250 mcg 00 weekly. Medical (50,000 Branch unit) capsule traZODone 0 Yes [id number] 50mg Take 1 [facility] 50 mg 3-30 tablet by [facility] of tablet 00:00: mouth at [place] 00 bedtime. [facility] tamsulosin 0 Yes [id number] .4mg Take 1 [facility] 0.4 mg 24 3-30 9102 capsule by [facility]y of hr capsule 00:00: mouth [place] 00 daily. [facility] traZODone 2021-0 Yes [id number] 50mg Take 1 [facility] 50 mg 3-30 tablet by [facility] of tablet 00:00: mouth at [place] 00 bedtime. [facility] tamsulosin 0 Yes [id number] .4mg Take 1 [facility] 0.4 mg 24 3-30 9102 capsule by [facility]y of hr capsule 00:00: mouth [place] 00 daily. [facility] traZODone 0 Yes [id number] 50mg Take 1 [facility] 50 mg 3-30 tablet by [facility] of tablet 00:00: mouth at [place] 00 bedtime. [facility] tamsulosin 2021-0 Yes [id number] .4mg Take 1 [facility] 0.4 mg 24 3-30 9102 capsule by [facility]y of hr capsule 00:00: mouth [place] 00 daily. [facility] traZODone 2021-0 Yes [id number] 50mg Take 1 [facility] 50 mg 3-30 tablet by [facility] of tablet 00:00: mouth at [place] 00 bedtime. [facility] tamsulosin 0 Yes [id number] .4mg Take 1 [facility] 0.4 mg 24 3-30 9102 capsule by [facility]y of hr capsule 00:00: mouth [place] 00 daily. [facility] traZODone 0 Yes [id number] 50mg Take 1 [facility] 50 mg 3-30 tablet by [facility] of tablet 00:00: mouth at [place] 00 bedtime. [facility] tamsulosin 0 Yes [id number] .4mg Take 1 [facility] 0.4 mg 24 3-30 9102 capsule by ity of hr capsule 00:00: mouth [place] 00 daily. [facility] traZODone 0 Yes [id number] 50mg Take 1 [facility] 50 mg 3-30 tablet by [facility] of tablet 00:00: mouth at [place] [address] bedtime. [facility] tamsulosin 2022- No [id number] .4mg Take 1 [facility] 0.4 mg 24 3-30 -05 9102 capsule by ity of hr capsule 00:00: 00:00 mouth [place] 00 :00 daily. [facility] traZODone 2022- No [id number] 50mg Take 1 [facility] 50 mg 3-30 -05 tablet by [facility] of tablet 00:00: 00:00 mouth at [place] 00 :00 bedtime. [facility] tamsulosin 2022- No [id number] .4mg Take 1 [facility] 0.4 mg 24 3-30 -05 9102 capsule by [facility]y of hr capsule 00:00: 00:00 mouth [place] 00 :00 daily. [facility] traZODone 2021-2022- No [id number] 50mg Take 1 [facility] 50 mg 3-30 -05 tablet by [facility] of tablet 00:00: 00:00 mouth at [place] 00 :00 bedtime. [facility] tamsulosin 2021-2022- No [id number] .4mg Take 1 [facility] 0.4 mg 24 3-30 -05 9102 capsule by [facility]y of hr capsule 00:00: 00:00 mouth [place] 00 :00 daily. [facility] traZODone 2022- No [id number] 50mg Take 1 [facility] 50 mg 3-30 -05 tablet by [facility] of tablet 00:00: 00:00 mouth at [place] 00 :00 bedtime. [facility] tamsulosin 2022- No [id number] .4mg Take 1 [facility] 0.4 mg 24 3-30 -05 9102 capsule by ity of hr capsule 00:00: 00:00 mouth [place] 00 :00 daily. [facility] traZODone 2022- No [id number] 50mg Take 1 [facility] 50 mg 3-30 -05 tablet by [facility] of tablet 00:00: 00:00 mouth at [place] 00 :00 bedtime. [facility] ergocalcife 2021- No [id number] Take 1 [facility] rol, 3-30 12-12 capsule by it[facility] of vitamin d2, 00:00: 00:00 mouth [place] 1,250 mcg 00 :00 weekly. Medical (50,000 Branch unit) capsule pravastatin 2021- No [id number] 40mg Take 1 [facility] 40 mg 3-30 11-11 tablet by [facility] of tablet 00:00: 00:00 mouth at [place] 00 :00 bedtime. [facility] triamcinolo Yes [id number] 1{spray Use 1 [facility] ne 55 mcg 3-15 } [place] in [facility] of nasal 00:00: each [place] inhaler 00 nostril 2 Medical (two) Branch times daily. ipratropium Yes [id number] 1{spray Use 1 [facility] 42 mcg 3-15 1 } [place] in [facility]y of (0.06 %) 00:00: each [place] nasal spray 00 nostril 2 Med ical (two) Branch times daily. triamcinolo Yes [id number] 1{spray Use 1 [facility] ne 55 mcg 3-15 } [place] in [facility] of nasal 00:00: each [place] inhaler 00 nostril 2 Medical (two) Branch times daily. ipratropium Yes [id number] 1{spray Use 1 [facility] 42 mcg 3-15 1 } [place] in [facility]y of (0.06 %) 00:00: each [place] nasal spray 00 nostril 2 Med ical (two) Branch times daily. triamcinolo 2021-0 Yes [id number] 1{spray Use 1 [facility] ne 55 mcg 3-15 } [place] in [facility] of nasal 00:00: each [place] inhaler 00 nostril 2 Medical (two) Branch times daily. ipratropium 2021-0 Yes [id number] 1{spray Use 1 [facility] 42 mcg 3-15 1 } [place] in [facility]y of (0.06 %) 00:00: each [place] nasal spray 00 nostril 2 Med ical (two) Branch times daily. triamcinolo 2021-0 Yes [id number] 1{spray Use 1 [facility] ne 55 mcg 3-15 } [place] in [facility] of nasal 00:00: each [place] inhaler 00 nostril 2 Medical (two) Branch times daily. ipratropium 2021-0 Yes [id number] 1{spray Use 1 [facility] 42 mcg 3-15 1 } [place] in ity of (0.06 %) 00:00: each [place] nasal spray 00 nostril 2 Med ical (two) Branch times daily. triamcinolo 2021-0 Yes [id number] 1{spray Use 1 [facility] ne 55 mcg 3-15 } [place] in [facility] of nasal 00:00: each [place] inhaler 00 nostril 2 Medical (two) Branch times daily. ipratropium 2021-0 Yes [id number] 1{spray Use 1 [facility] 42 mcg 3-15 1 } [place] in ity of (0.06 %) 00:00: each [place] nasal spray 00 nostril 2 Med ical (two) Branch times daily. triamcinolo 2021-0 Yes [id number] 1{spray Use 1 [facility] ne 55 mcg 3-15 } [place] in [facility] of nasal 00:00: each [place] inhaler 00 nostril 2 Medical (two) Branch times daily. ipratropium 2-0 Yes [id number] 1{spray Use 1 [facility] 42 mcg 3-15 1 } [place] in ity of (0.06 %) 00:00: each [place] nasal spray 00 nostril 2 Med ical (two) Branch times daily. triamcinolo 2021-0 Yes [id number] 1{spray Use 1 [facility] ne 55 mcg 3-15 } [place] in [facility] of nasal 00:00: each [place] inhaler 00 nostril 2 Medical (two) Branch times daily. ipratropium 2021-0 Yes [id number] 1{spray Use 1 [facility] 42 mcg 3-15 1 } [place] in ity of (0.06 %) 00:00: each [place] nasal spray 00 nostril 2 Med ical (two) Branch times daily. triamcinolo 2021-0 Yes [id number] 1{spray Use 1 [facility] ne 55 mcg 3-15 } [place] in [facility] of nasal 00:00: each [place] inhaler 00 nostril 2 Medical (two) Branch times daily. ipratropium 2021-0 Yes [id number] 1{spray Use 1 [facility] 42 mcg 3-15 1 } [place] in ity of (0.06 %) 00:00: each [place] nasal spray 00 nostril 2 Med ical (two) Branch times daily. triamcinolo 2021-0 Yes [id number] 1{spray Use 1 [facility] ne 55 mcg 3-15 } [place] in [facility] of nasal 00:00: each [place] inhaler 00 nostril 2 Medical (two) Branch times daily. ipratropium 2021-0 Yes [id number] 1{spray Use 1 [facility] 42 mcg 3-15 1 } [place] in ity of (0.06 %) 00:00: each [place] nasal spray 00 nostril 2 Med ical (two) Branch times daily. triamcinolo 2021-0 Yes [id number] 1{spray Use 1 [facility] ne 55 mcg 3-15 } [place] in [facility] of nasal 00:00: each [place] inhaler 00 nostril 2 Medical (two) Branch times daily. ipratropium 2021-0 Yes [id number] 1{spray Use 1 [facility] 42 mcg 3-15 1 } [place] in [facility]y of (0.06 %) 00:00: each [place] nasal spray 00 nostril 2 Med ical (two) Branch times daily. triamcinolo 2021-0 Yes [id number] 1{spray Use 1 [facility] ne 55 mcg 3-15 } [place] in [facility] of nasal 00:00: each [place] inhaler 00 nostril 2 Medical (two) Branch times daily. ipratropium 2021-0 Yes [id number] 1{spray Use 1 [facility] 42 mcg 3-15 1 } [place] in [facility]y of (0.06 %) 00:00: each [place] nasal spray 00 nostril 2 Med ical (two) Branch times daily. triamcinolo 2021-0 Yes [id number] 1{spray Use 1 [facility] ne 55 mcg 3-15 } [place] in [facility] of nasal 00:00: each [place] inhaler 00 nostril 2 Medical (two) Branch times daily. ipratropium 2021-0 Yes [id number] 1{spray Use 1 [facility] 42 mcg 3-15 1 } [place] in [facility]y of (0.06 %) 00:00: each [place] nasal spray 00 nostril 2 Med ical (two) Branch times daily. triamcinolo 2021-0 Yes [id number] 1{spray Use 1 [facility] ne 55 mcg 3-15 } [place] in [facility] of nasal 00:00: each [place] inhaler 00 nostril 2 Medical (two) Branch times daily. ipratropium 2021-0 Yes [id number] 1{spray Use 1 [facility] 42 mcg 3-15 1 } [place] in [facility]y of (0.06 %) 00:00: each [place] nasal spray 00 nostril 2 Med ical (two) Branch times daily. triamcinolo 2021-0 Yes [id number] 1{spray Use 1 [facility] ne 55 mcg 3-15 } [place] in [facility] of nasal 00:00: each [place] inhaler 00 nostril 2 Medical (two) Branch times daily. ipratropium 2021-0 Yes [id number] 1{spray Use 1 [facility] 42 mcg 3-15 1 } [place] in ity of (0.06 %) 00:00: each [place] nasal spray 00 nostril 2 Med ical (two) Branch times daily. triamcinolo 2021-0 Yes [id number] 1{spray Use 1 [facility] ne 55 mcg 3-15 } [place] in [facility] of nasal 00:00: each [place] inhaler 00 nostril 2 Medical (two) Branch times daily. ipratropium 2021-0 Yes [id number] 1{spray Use 1 [facility] 42 mcg 3-15 1 } [place] in ity of (0.06 %) 00:00: each [place] nasal spray 00 nostril 2 Med ical (two) Branch times daily. triamcinolo 2021-0 Yes [id number] 1{spray Use 1 [facility] ne 55 mcg 3-15 } [place] in [facility] of nasal 00:00: each [place] inhaler 00 nostril 2 Medical (two) Branch times daily. ipratropium 2021-0 Yes [id number] 1{spray Use 1 [facility] 42 mcg 3-15 1 } [place] in ity of (0.06 %) 00:00: each [place] nasal spray 00 nostril 2 Med ical (two) Branch times daily. triamcinolo 2021-0 Yes [id number] 1{spray Use 1 [facility] ne 55 mcg 3-15 } [place] in [facility] of nasal 00:00: each [place] inhaler 00 nostril 2 Medical (two) Branch times daily. ipratropium 2021-0 Yes [id number] 1{spray Use 1 [facility] 42 mcg 3-15 1 } [place] in ity of (0.06 %) 00:00: each [place] nasal spray 00 nostril 2 Med ical (two) Branch times daily. triamcinolo 2021-0 Yes [id number] 1{spray Use 1 [facility] ne 55 mcg 3-15 } [place] in [facility] of nasal 00:00: each [place] inhaler 00 nostril 2 Medical (two) Branch times daily. ipratropium 2021-0 Yes [id number] 1{spray Use 1 [facility] 42 mcg 3-15 1 } [place] in ity of (0.06 %) 00:00: each [place] nasal spray 00 nostril 2 Med ical (two) Branch times daily. triamcinolo 2021-0 Yes [id number] 1{spray Use 1 [facility] ne 55 mcg 3-15 } [place] in [facility] of nasal 00:00: each [place] inhaler 00 nostril 2 Medical (two) Branch times daily. ipratropium 2021-0 Yes [id number] 1{spray Use 1 [facility] 42 mcg 3-15 1 } [place] in ity of (0.06 %) 00:00: each [place] nasal spray 00 nostril 2 Med ical (two) Branch times daily. triamcinolo 2021-0 Yes [id number] 1{spray Use 1 [facility] ne 55 mcg 3-15 } [place] in [facility] of nasal 00:00: each [place] inhaler 00 nostril 2 Medical (two) Branch times daily. ipratropium 2021-0 Yes [id number] 1{spray Use 1 [facility] 42 mcg 3-15 1 } [place] in ity of (0.06 %) 00:00: each [place] nasal spray 00 nostril 2 Med ical (two) Branch times daily. triamcinolo 2021-0 Yes [id number] 1{spray Use 1 [facility] ne 55 mcg 3-15 } [place] in [facility]y of nasal 00:00: each [place] inhaler 00 nostril 2 Medical (two) Branch times daily. ipratropium 2021-0 Yes [id number] 1{spray Use 1 [facility] 42 mcg 3-15 1 } [place] in ity of (0.06 %) 00:00: each [place] nasal spray 00 nostril 2 Med ical (two) Branch times daily. triamcinolo 2021-0 Yes [id number] 1{spray Use 1 [facility] ne 55 mcg 3-15 } [place] in [facility] of nasal 00:00: each [place] inhaler 00 nostril 2 Medical (two) Branch times daily. ipratropium 2021-0 Yes [id number] 1{spray Use 1 [facility] 42 mcg 3-15 1 } [place] in ity of (0.06 %) 00:00: each [place] nasal spray 00 nostril 2 Med ical (two) Branch times daily. triamcinolo 2021-0 Yes [id number] 1{spray Use 1 [facility] ne 55 mcg 3-15 } [place] in [facility]y of nasal 00:00: each [place] inhaler 00 nostril 2 Medical (two) Branch times daily. ipratropium 2021-0 Yes [id number] 1{spray Use 1 [facility] 42 mcg 3-15 1 } [place] in ity of (0.06 %) 00:00: each [place] nasal spray 00 nostril 2 Med ical (two) Branch times daily. triamcinolo 2021-0 Yes [id number] 1{spray Use 1 [facility] ne 55 mcg 3-15 } [place] in [facility]y of nasal 00:00: each [place] inhaler 00 nostril 2 Medical (two) Branch times daily. ipratropium 2021-0 Yes [id number] 1{spray Use 1 [facility] 42 mcg 3-15 1 } [place] in ity of (0.06 %) 00:00: each [place] nasal spray 00 nostril 2 Med ical (two) Branch times daily. triamcinolo 2021-0 Yes [id number] 1{spray Use 1 [facility] ne 55 mcg 3-15 } [place] in [facility] of nasal 00:00: each [place] inhaler 00 nostril 2 Medical (two) Branch times daily. ipratropium 2021-0 Yes [id number] 1{spray Use 1 [facility] 42 mcg 3-15 1 } [place] in ity of (0.06 %) 00:00: each [place] nasal spray 00 nostril 2 Med ical (two) Branch times daily. triamcinolo 2021-0 Yes [id number] 1{spray Use 1 [facility] ne 55 mcg 3-15 } [place] in [facility] of nasal 00:00: each [place] inhaler 00 nostril 2 Medical (two) Branch times daily. ipratropium 2021-0 Yes [id number] 1{spray Use 1 [facility] 42 mcg 3-15 1 } [place] in ity of (0.06 %) 00:00: each [place] nasal spray 00 nostril 2 Med ical (two) Branch times daily. triamcinolo 2021-0 Yes [id number] 1{spray Use 1 [facility] ne 55 mcg 3-15 } [place] in [facility] of nasal 00:00: each [place] inhaler 00 nostril 2 Medical (two) Branch times daily. ipratropium 2021-0 Yes [id number] 1{spray Use 1 [facility] 42 mcg 3-15 1 } [place] in ity of (0.06 %) 00:00: each [place] nasal spray 00 nostril 2 Med ical (two) Branch times daily. triamcinolo 2021-0 Yes [id number] 1{spray Use 1 [facility] ne 55 mcg 3-15 } [place] in [facility] of nasal 00:00: each [place] inhaler 00 nostril 2 Medical (two) Branch times daily. ipratropium 2021-0 Yes [id number] 1{spray Use 1 [facility] 42 mcg 3-15 1 } [place] in ity of (0.06 %) 00:00: each [place] nasal spray 00 nostril 2 Med ical (two) Branch times daily. triamcinolo 2021-0 Yes [id number] 1{spray Use 1 [facility] ne 55 mcg 3-15 } [place] in [facility] of nasal 00:00: each [place] inhaler 00 nostril 2 Medical (two) Branch times daily. ipratropium 2021-0 Yes [id number] 1{spray Use 1 [facility] 42 mcg 3-15 1 } [place] in ity of (0.06 %) 00:00: each [place] nasal spray 00 nostril 2 Med ical (two) Branch times daily. triamcinolo 2021-0 Yes [id number] 1{spray Use 1 [facility] ne 55 mcg 3-15 } [place] in ity of nasal 00:00: each [place] inhaler 00 nostril 2 Medical (two) Branch times daily. ipratropium 2021-0 Yes [id number] 1{spray Use 1 [facility] 42 mcg 3-15 1 } [place] in ity of (0.06 %) 00:00: each [place] nasal spray 00 nostril 2 Med ical (two) Branch times daily. triamcinolo 2021-0 Yes [id number] 1{spray Use 1 [facility] ne 55 mcg 3-15 } [place] in ity of nasal 00:00: each [place] inhaler 00 nostril 2 Medical (two) Branch times daily. ipratropium 2021-0 Yes [id number] 1{spray Use 1 [facility] 42 mcg 3-15 1 } [place] in ity of (0.06 %) 00:00: each [place] nasal spray 00 nostril 2 Med ical (two) Branch times daily. triamcinolo 2021-0 Yes [id number] 1{spray Use 1 [facility] ne 55 mcg 3-15 } [place] in ity of nasal 00:00: each [place] inhaler 00 nostril 2 Medical (two) Branch times daily. ipratropium 2021-0 Yes [id number] 1{spray Use 1 [facility] 42 mcg 3-15 1 } [place] in ity of (0.06 %) 00:00: each [place] nasal spray 00 nostril 2 Med ical (two) Branch times daily. triamcinolo 2021-0 Yes [id number] 1{spray Use 1 [facility] ne 55 mcg 3-15 } [place] in ity of nasal 00:00: each [place] inhaler 00 nostril 2 Medical (two) Branch times daily. ipratropium 2-0 Yes [id number] 1{spray Use 1 [facility] 42 mcg 3-15 1 } [place] in ity of (0.06 %) 00:00: each [place] nasal spray 00 nostril 2 Med ical (two) Branch times daily. triamcinolo 2021-0 Yes [id number] 1{spray Use 1 [facility] ne 55 mcg 3-15 } [place] in ity of nasal 00:00: each [place] inhaler 00 nostril 2 Medical (two) Branch times daily. ipratropium 2021-0 Yes [id number] 1{spray Use 1 [facility] 42 mcg 3-15 1 } [place] in ity of (0.06 %) 00:00: each [place] nasal spray 00 nostril 2 Med ical (two) Branch times daily. triamcinolo 2021-0 Yes [id number] 1{spray Use 1 [facility] ne 55 mcg 3-15 } [place] in ity of nasal 00:00: each [place] inhaler 00 nostril 2 Medical (two) Branch times daily. ipratropium 2021-0 Yes [id number] 1{spray Use 1 [facility] 42 mcg 3-15 1 } [place] in ity of (0.06 %) 00:00: each [place] nasal spray 00 nostril 2 Med ical (two) Branch times daily. triamcinolo 2021-0 Yes [id number] 1{spray Use 1 [facility] ne 55 mcg 3-15 } [place] in ity of nasal 00:00: each [place] inhaler 00 nostril 2 Medical (two) Branch times daily. ipratropium 2021-0 Yes [id number] 1{spray Use 1 [facility] 42 mcg 3-15 1 } [place] in ity of (0.06 %) 00:00: each [place] nasal spray 00 nostril 2 Med ical (two) Branch times daily. triamcinolo 2021-0 Yes [id number] 1{spray Use 1 [facility] ne 55 mcg 3-15 } [place] in ity of nasal 00:00: each [place] inhaler 00 nostril 2 Medical (two) Branch times daily. ipratropium 2021-0 Yes [id number] 1{spray Use 1 [facility] 42 mcg 3-15 1 } [place] in ity of (0.06 %) 00:00: each [place] nasal spray 00 nostril 2 Med ical (two) Branch times daily. triamcinolo 2021-0 Yes [id number] 1{spray Use 1 [facility] ne 55 mcg 3-15 } [place] in ity of nasal 00:00: each [place] inhaler 00 nostril 2 Medical (two) Branch times daily. ipratropium 2021-0 Yes [id number] 1{spray Use 1 [facility] 42 mcg 3-15 1 } [place] in ity of (0.06 %) 00:00: each [place] nasal spray 00 nostril 2 Med ical (two) Branch times daily. triamcinolo 2021-0 Yes [id number] 1{spray Use 1 [facility] ne 55 mcg 3-15 } [place] in ity of nasal 00:00: each [place] inhaler 00 nostril 2 Medical (two) Branch times daily. ipratropium 2021-0 Yes [id number] 1{spray Use 1 [facility] 42 mcg 3-15 1 } [place] in ity of (0.06 %) 00:00: each [place] nasal spray 00 nostril 2 Med ical (two) Branch times daily. triamcinolo 2021-0 Yes [id number] 1{spray Use 1 [facility] ne 55 mcg 3-15 } [place] in ity of nasal 00:00: each [place] inhaler 00 nostril 2 Medical (two) Branch times daily. ipratropium 2021-0 Yes [id number] 1{spray Use 1 [facility] 42 mcg 3-15 1 } [place] in ity of (0.06 %) 00:00: each [place] nasal spray 00 nostril 2 Med ical (two) Branch times daily. triamcinolo 2021-0 Yes [id number] 1{spray Use 1 [facility] ne 55 mcg 3-15 } [place] in ity of nasal 00:00: each [place] inhaler 00 nostril 2 Medical (two) Branch times daily. ipratropium 2021-0 Yes [id number] 1{spray Use 1 [facility] 42 mcg 3-15 1 } [place] in ity of (0.06 %) 00:00: each [place] nasal spray 00 nostril 2 Med ical (two) Branch times daily. triamcinolo 2021-0 Yes [id number] 1{spray Use 1 [facility] ne 55 mcg 3-15 } [place] in ity of nasal 00:00: each [place] inhaler 00 nostril 2 Medical (two) Branch times daily. ipratropium 2021-0 Yes [id number] 1{spray Use 1 [facility] 42 mcg 3-15 1 } [place] in ity of (0.06 %) 00:00: each [place] nasal spray 00 nostril 2 Med ical (two) Branch times daily. triamcinolo 2021-0 Yes [id number] 1{spray Use 1 [facility] ne 55 mcg 3-15 } [place] in ity of nasal 00:00: each [place] inhaler 00 nostril 2 Medical (two) Branch times daily. ipratropium 2021-0 Yes [id number] 1{spray Use 1 [facility] 42 mcg 3-15 1 } [place] in ity of (0.06 %) 00:00: each [place] nasal spray 00 nostril 2 Med ical (two) Branch times daily. triamcinolo 2021-0 Yes [id number] 1{spray Use 1 [facility] ne 55 mcg 3-15 } [place] in ity of nasal 00:00: each [place] inhaler 00 nostril 2 Medical (two) Branch times daily. ipratropium 2021-0 Yes [id number] 1{spray Use 1 [facility] 42 mcg 3-15 1 } [place] in ity of (0.06 %) 00:00: each [place] nasal spray 00 nostril 2 Med ical (two) Branch times daily. triamcinolo 2021-0 Yes [id number] 1{spray Use 1 [facility] mcg 3-15 } [place] [facility] 00:00: each [place] inhaler 00 nostril 2 Medical (two) Branch times daily. ipratropium 2021-0 Yes [id number] 1{spray Use 1 [facility] 42 mcg 3-15 1 } [place] [facility] of (0.06 %) 00:00: each [place] nasal spray 00 nostril 2 Med ical (two) Branch times daily. triamcinolo 2021-0 Yes [id number] 1{spray Use 1 [facility] 55 mcg 3-15 } [place] [facility] nasal 00:00: each [place] inhaler 00 nostril 2 Medical (two) Branch times daily. ipratropium 2021-0 Yes [id number] 1{spray Use 1 [facility] 42 mcg 3-15 1 } [place] [facility] of (0.06 %) 00:00: each [place] nasal spray 00 nostril 2 Med ical (two) Branch times daily. triamcinolo 2021-0 Yes [id number] 1{spray Use 1 [facility] 55 mcg 3-15 } [place] [facility] nasal 00:00: each [place] inhaler 00 nostril 2 [facility] (two) Branch times daily. ipratropium 2021-0 Yes [id number] 1{spray Use 1 [facility] 42 mcg 3-15 1 } [place] [facility] of (0.06 %) 00:00: each [place] nasal spray 00 nostril 2 Med ical (two) Branch times daily. triamcinolo 2021-0 Yes [id number] 1{spray Use 1 [facility] 55 mcg 3-15 } [place] [facility] nasal 00:00: each [place] inhaler 00 nostril 2 [facility] (two) Branch times daily. ipratropium 2021-0 Yes [id number] 1{spray Use 1 [facility] 42 mcg 3-15 1 } [place] [facility] of (0.06 %) 00:00: each [place] nasal spray 00 nostril 2 Med ical (two) Branch times daily. triamcinolo 2021-0 Yes [id number] 1{spray Use 1 [facility] 55 mcg 3-15 } [place] [facility] nasal 00:00: each [place] inhaler 00 nostril 2 [facility] (two) Branch times daily. ipratropium 2021-0 Yes [id number] 1{spray Use 1 [facility] 42 mcg 3-15 1 } [place] [facility] of (0.06 %) 00:00: each [place] nasal spray 00 nostril 2 Med ical (two) Branch times daily. triamcinolo 2021-0 Yes [id number] 1{spray Use 1 [facility] 55 mcg 3-15 } [place] [facility] nasal 00:00: each [place] inhaler 00 nostril 2 [facility] (two) Branch times daily. ipratropium 2021-0 Yes [id number] 1{spray Use 1 [facility] 42 mcg 3-15 1 } [place] [facility] of (0.06 %) 00:00: each [place] nasal spray 00 nostril 2 Med ical (two) Branch times daily. triamcinolo 2021-0 Yes [id number] 1{spray Use 1 [facility] 55 mcg 3-15 } [place] [facility] nasal 00:00: each [place] inhaler 00 nostril 2 [facility] (two) Branch times daily. ipratropium 2021-0 Yes [id number] 1{spray Use 1 [facility] 42 mcg 3-15 1 } [place] [facility] of (0.06 %) 00:00: each [place] nasal spray 00 nostril 2 Med ical (two) Branch times daily. triamcinolo 2021-0 Yes [id number] 1{spray Use 1 [facility] 55 mcg 3-15 } [place] [facility] nasal 00:00: each [place] inhaler 00 nostril 2 [facility] (two) Branch times daily. ipratropium 2021-0 Yes [id number] 1{spray Use 1 [facility] 42 mcg 3-15 1 } [place] [facility] of (0.06 %) 00:00: each [place] nasal spray 00 nostril 2 Med ical (two) Branch times daily. triamcinolo 2021-0 Yes [id number] 1{spray Use 1 [facility] 55 mcg 3-15 } [place] [facility] nasal 00:00: each [place] inhaler 00 nostril 2 [facility] (two) Branch times daily. ipratropium 2021-0 Yes [id number] 1{spray Use 1 [facility] 42 mcg 3-15 1 } [place] [facility] of (0.06 %) 00:00: each [place] nasal spray 00 nostril 2 Med ical (two) Branch times daily. triamcinolo 2021-0 Yes [id number] 1{spray Use 1 [facility] 55 mcg 3-15 } [place] [facility] nasal 00:00: each [place] inhaler 00 nostril 2 [facility] (two) Branch times daily. ipratropium 2021-0 Yes [id number] 1{spray Use 1 [facility] 42 mcg 3-15 1 } [place] [facility] of (0.06 %) 00:00: each [place] nasal spray 00 nostril 2 Med ical (two) Branch times daily. triamcinolo 2021-0 Yes [id number] 1{spray Use 1 [facility] 55 mcg 3-15 } [place] [facility] nasal 00:00: each [place] inhaler 00 nostril 2 [facility] (two) Branch times daily. ipratropium 2-0 Yes [id number] 1{spray Use 1 [facility] 42 mcg 3-15 1 } [place] [facility] of (0.06 %) 00:00: each [place] nasal spray 00 nostril 2 Med ical (two) Branch times daily. triamcinolo 2021-0 Yes [id number] 1{spray Use 1 [facility] 55 mcg 3-15 } [place] [facility] nasal 00:00: each [place] inhaler 00 nostril 2 [facility] (two) Branch times daily. ipratropium 2-0 Yes [id number] 1{spray Use 1 [facility] 42 mcg 3-15 1 } [place] [facility] of (0.06 %) 00:00: each [place] nasal spray 00 nostril 2 Med ical (two) Branch times daily. triamcinolo 2021-0 Yes [id number] 1{spray Use 1 [facility] 55 mcg 3-15 } [place] [facility] nasal 00:00: each [place] inhaler 00 nostril 2 [facility] (two) Branch times daily. ipratropium 2021-0 Yes [id number] 1{spray Use 1 [facility] 42 mcg 3-15 1 } [place] [facility] of (0.06 %) 00:00: each [place] nasal spray 00 nostril 2 Med ical (two) Branch times daily. triamcinolo 2021-0 Yes [id number] 1{spray Use 1 [facility] 55 mcg 3-15 } [place] [facility] nasal 00:00: each [place] inhaler 00 nostril 2 [facility] (two) Branch times daily. ipratropium 2021-0 Yes [id number] 1{spray Use 1 [facility] 42 mcg 3-15 1 } [place] [facility] of (0.06 %) 00:00: each [place] nasal spray 00 nostril 2 Med ical (two) Branch times daily. triamcinolo 2021-0 Yes [id number] 1{spray Use 1 [facility] 55 mcg 3-15 } [place] [facility] nasal 00:00: each [place] inhaler 00 nostril 2 [facility] (two) Branch times daily. ipratropium 2-0 Yes [id number] 1{spray Use 1 [facility] 42 mcg 3-15 1 } [place] [facility] of (0.06 %) 00:00: each [place] nasal spray 00 nostril 2 Med ical (two) Branch times daily. triamcinolo 2021-0 Yes [id number] 1{spray Use 1 [facility] 55 mcg 3-15 } [place] [facility] nasal 00:00: each [place] inhaler 00 nostril 2 [facility] (two) Branch times daily. ipratropium 2-0 Yes [id number] 1{spray Use 1 [facility] 42 mcg 3-15 1 } [place] [facility] of (0.06 %) 00:00: each [place] nasal spray 00 nostril 2 Med ical (two) Branch times daily. triamcinolo 2021-0 Yes [id number] 1{spray Use 1 [facility] 55 mcg 3-15 } [place] [facility] nasal 00:00: each [place] inhaler 00 nostril 2 [facility] (two) Branch times daily. ipratropium 2021-0 Yes [id number] 1{spray Use 1 [facility] 42 mcg 3-15 1 } [place] [facility] of (0.06 %) 00:00: each [place] nasal spray 00 nostril 2 Med ical (two) Branch times daily. triamcinolo 2021-0 Yes [id number] 1{spray Use 1 [facility] 55 mcg 3-15 } [place] [facility] nasal 00:00: each [place] inhaler 00 nostril 2 [facility] (two) Branch times daily. ipratropium 2021-0 Yes [id number] 1{spray Use 1 [facility] 42 mcg 3-15 1 } [place] [facility] of (0.06 %) 00:00: each [place] nasal spray 00 nostril 2 [facility] ical (two) Branch times daily. triamcinolo 2021-0 Yes [id number] 1{spray Use 1 [facility] 55 mcg 3-15 } [place] [facility] nasal 00:00: each [place] inhaler 00 nostril 2 [facility] (two) Branch times daily. ipratropium 2021-0 Yes [id number] 1{spray Use 1 [facility] 42 mcg 3-15 1 } [place] [facility] of (0.06 %) 00:00: each [place] nasal spray 00 nostril 2 [facility] ical (two) Branch times daily. triamcinolo 2021-0 Yes [id number] 1{spray Use 1 [facility] 55 mcg 3-15 } [place] [facility] nasal 00:00: each [place] inhaler 00 nostril 2 [facility] (two) Branch times daily. ipratropium 2-0 Yes [id number] 1{spray Use 1 [facility] 42 mcg 3-15 1 } [place] [facility] of (0.06 %) 00:00: each [place] nasal spray 00 nostril 2 [facility] ical (two) Branch times daily. triamcinolo 2021-0 Yes [id number] 1{spray Use 1 [facility] 55 mcg 3-15 } [place] [facility] nasal 00:00: each [place] inhaler 00 nostril 2 [facility] (two) Branch times daily. ipratropium 2-0 Yes [id number] 1{spray Use 1 [facility] 42 mcg 3-15 1 } [place] [facility] of (0.06 %) 00:00: each [place] nasal spray 00 nostril 2 Med ical (two) Branch times daily. triamcinolo 2021-0 Yes [id number] 1{spray Use 1 [facility] 55 mcg 3-15 } [place] [facility] nasal 00:00: each [place] inhaler 00 nostril 2 [facility] (two) Branch times daily. ipratropium 2021-0 Yes [id number] 1{spray Use 1 [facility] 42 mcg 3-15 1 } [place] [facility] of (0.06 %) 00:00: each [place] nasal spray 00 nostril 2 Med ical (two) Branch times daily. triamcinolo 2021-0 Yes [id number] 1{spray Use 1 [facility] 55 mcg 3-15 } [place] [facility] nasal 00:00: each [place] inhaler 00 nostril 2 [facility] (two) Branch times daily. ipratropium 2021-0 Yes [id number] 1{spray Use 1 [facility] 42 mcg 3-15 1 } [place] [facility] of (0.06 %) 00:00: each [place] nasal spray 00 nostril 2 Med ical (two) Branch times daily. triamcinolo 2021-0 Yes [id number] 1{spray Use 1 [facility] 55 mcg 3-15 } [place] [facility] nasal 00:00: each [place] inhaler 00 nostril 2 [facility] (two) Branch times daily. ipratropium 2-0 Yes [id number] 1{spray Use 1 [facility] 42 mcg 3-15 1 } [place] [facility] of (0.06 %) 00:00: each [place] nasal spray 00 nostril 2 [facility] ical (two) Branch times daily. triamcinolo 2021-0 Yes [id number] 1{spray Use 1 [facility] 55 mcg 3-15 } [place] [facility] nasal 00:00: each [place] inhaler 00 nostril 2 [facility] (two) Branch times daily. ipratropium 2-0 Yes [id number] 1{spray Use 1 [facility] 42 mcg 3-15 1 } [place] [facility] of (0.06 %) 00:00: each [place] nasal spray 00 nostril 2 [facility] ical (two) Branch times daily. triamcinolo 2021-0 Yes [id number] 1{spray Use 1 [facility] 55 mcg 3-15 } [place] [facility] nasal 00:00: each [place] inhaler 00 nostril 2 [facility] (two) Branch times daily. ipratropium 2021-0 Yes [id number] 1{spray Use 1 [facility] 42 mcg 3-15 1 } [place] [facility] of (0.06 %) 00:00: each [place] nasal spray 00 nostril 2 Med ical (two) Branch times daily. triamcinolo 2021-0 Yes [id number] 1{spray Use 1 [facility] 55 mcg 3-15 } [place] [facility] nasal 00:00: each [place] inhaler 00 nostril 2 [facility] (two) Branch times daily. ipratropium 2021-0 Yes [id number] 1{spray Use 1 [facility] 42 mcg 3-15 1 } [place] [facility] of (0.06 %) 00:00: each [place] nasal spray 00 nostril 2 Med ical (two) Branch times daily. triamcinolo 2021-0 Yes [id number] 1{spray Use 1 [facility] 55 mcg 3-15 } [place] [facility] nasal 00:00: each [place] inhaler 00 nostril 2 [facility] (two) Branch times daily. ipratropium 2021-0 Yes [id number] 1{spray Use 1 [facility] 42 mcg 3-15 1 } [place] [facility] of (0.06 %) 00:00: each [place] nasal spray 00 nostril 2 Med ical (two) Branch times daily. triamcinolo 2021-0 Yes [id number] 1{spray Use 1 [facility] 55 mcg 3-15 } [place] [facility] nasal 00:00: each [place] inhaler 00 nostril 2 [facility] (two) Branch times daily. ipratropium 2-0 Yes [id number] 1{spray Use 1 [facility] 42 mcg 3-15 1 } [place] [facility] of (0.06 %) 00:00: each [place] nasal spray 00 nostril 2 [facility] ical (two) Branch times daily. triamcinolo 2021-0 Yes [id number] 1{spray Use 1 [facility] 55 mcg 3-15 } [place] [facility] nasal 00:00: each [place] inhaler 00 nostril 2 [facility] (two) Branch times daily. ipratropium 2021-0 Yes [id number] 1{spray Use 1 [facility] 42 mcg 3-15 1 } [place] [facility] of (0.06 %) 00:00: each [place] nasal spray 00 nostril 2 Med ical (two) Branch times daily. triamcinolo 2021-0 Yes [id number] 1{spray Use 1 [facility] 55 mcg 3-15 } [place] [facility] nasal 00:00: each [place] inhaler 00 nostril 2 Medical (two) Branch times daily. ipratropium 2021-0 Yes [id number] 1{spray Use 1 [facility] 42 mcg 3-15 1 } [place] [facility] of (0.06 %) 00:00: each [place] nasal spray 00 nostril 2 Med ical (two) Branch times daily. triamcinolo 2021-0 Yes [id number] 1{spray Use 1 [facility] 55 mcg 3-15 } [place] [facility] nasal 00:00: each [place] inhaler 00 nostril 2 Medical (two) Branch times daily. ipratropium 2021-0 Yes [id number] 1{spray Use 1 [facility] 42 mcg 3-15 1 } [place] [facility] of (0.06 %) 00:00: each [place] nasal spray 00 nostril 2 Med ical (two) Branch times daily. triamcinolo 2021-0 Yes [id number] 1{spray Use 1 [facility] 55 mcg 3-15 } [place] [facility] nasal 00:00: each [place] inhaler 00 nostril 2 [facility] (two) Branch times daily. ipratropium 2021-0 Yes [id number] 1{spray Use 1 [facility] 42 mcg 3-15 1 } [place] [facility] of (0.06 %) 00:00: each [place] nasal spray 00 nostril 2 Med [facility] (two) Branch times daily. albuterol 2021-0 Yes [id number] 2.5mg Inhale 3 [facility] 2.5 mg /3 3-10 mL every 2 ity of mL (0.083 00:00: (two) [place] %) 00 hours as Medical nebulizer needed for Bran ch solution Shortness of Breath or Wheezing. budesonide 2021-0 Yes [id number] .5mg Inhale 2 [facility] 0.5 mg/2 mL 3-10 mL 2 (two) it y of nebulizer 00:00: times [place] solution 00 daily. [facility] albuterol 2021-0 Yes [id number] 2.5mg Inhale 3 [facility] 2.5 mg /3 3-10 mL every 2 ity of mL (0.083 00:00: (two) [place] %) 00 hours as Medical nebulizer needed for Bran ch solution Shortness of Breath or Wheezing. budesonide 2021-0 Yes [id number] .5mg Inhale 2 [facility] 0.5 mg/2 mL 3-10 mL 2 (two) it y of nebulizer 00:00: times [place] solution 00 daily. [facility] albuterol 2021-0 Yes [id number] 2.5mg Inhale 3 [facility] 2.5 mg /3 3-10 mL every 2 ity of mL (0.083 00:00: (two) [place] %) 00 hours as Medical nebulizer needed for Bran ch solution Shortness of Breath or Wheezing. budesonide 2021-0 Yes [id number] .5mg Inhale 2 [facility] 0.5 mg/2 mL 3-10 mL 2 (two) it y of nebulizer 00:00: times [place] solution 00 daily. [facility] albuterol 2021-0 Yes [id number] 2.5mg Inhale 3 [facility] 2.5 mg /3 3-10 mL every 2 ity of mL (0.083 00:00: (two) [place] %) 00 hours as Medical nebulizer needed for Bran ch solution Shortness of Breath or Wheezing. budesonide 2021-0 Yes [id number] .5mg Inhale 2 [facility] 0.5 mg/2 mL 3-10 mL 2 (two) it y of nebulizer 00:00: times [place] solution 00 daily. [facility] albuterol 2021-0 Yes [id number] 2.5mg Inhale 3 [facility] 2.5 mg /3 3-10 mL every 2 ity of mL (0.083 00:00: (two) [place] %) 00 hours as Medical nebulizer needed for Bran ch solution Shortness of Breath or Wheezing. budesonide 2021-0 Yes [id number] .5mg Inhale 2 [facility] 0.5 mg/2 mL 3-10 mL 2 (two) it y of nebulizer 00:00: times [place] solution 00 daily. [facility] albuterol 2021-0 Yes [id number] 2.5mg Inhale 3 [facility] 2.5 mg /3 3-10 mL every 2 ity of mL (0.083 00:00: (two) [place] %) 00 hours as Medical nebulizer needed for Bran ch solution Shortness of Breath or Wheezing. budesonide 2021-0 Yes [id number] .5mg Inhale 2 [facility] 0.5 mg/2 mL 3-10 mL 2 (two) it y of nebulizer 00:00: times [place] solution 00 daily. [facility] albuterol 2021-0 Yes [id number] 2.5mg Inhale 3 [facility] 2.5 mg /3 3-10 mL every 2 ity of mL (0.083 00:00: (two) [place] %) 00 hours as Medical nebulizer needed for Bran ch solution Shortness of Breath or Wheezing. budesonide 2021-0 Yes [id number] .5mg Inhale 2 [facility] 0.5 mg/2 mL 3-10 mL 2 (two) it y of nebulizer 00:00: times [place] solution 00 daily. [facility] albuterol 2021-0 Yes [id number] 2.5mg Inhale 3 [facility] 2.5 mg /3 3-10 mL every 2 ity of mL (0.083 00:00: (two) [place] %) 00 hours as Medical nebulizer needed for Bran ch solution Shortness of Breath or Wheezing. budesonide 2021-0 Yes [id number] .5mg Inhale 2 [facility] 0.5 mg/2 mL 3-10 mL 2 (two) it y of nebulizer 00:00: times [place] solution 00 daily. [facility] albuterol 2021-0 Yes [id number] 2.5mg Inhale 3 [facility] 2.5 mg /3 3-10 mL every 2 ity of mL (0.083 00:00: (two) [place] %) 00 hours as Medical nebulizer needed for Bran ch solution Shortness of Breath or Wheezing. budesonide 2021-0 Yes [id number] .5mg Inhale 2 [facility] 0.5 mg/2 mL 3-10 mL 2 (two) it y of nebulizer 00:00: times [place] solution 00 daily. [facility] albuterol 2021-0 Yes [id number] 2.5mg Inhale 3 [facility] 2.5 mg /3 3-10 mL every 2 ity of mL (0.083 00:00: (two) [place] %) 00 hours as Medical nebulizer needed for Bran ch solution Shortness of Breath or Wheezing. budesonide 2021-0 Yes [id number] .5mg Inhale 2 [facility] 0.5 mg/2 mL 3-10 mL 2 (two) it y of nebulizer 00:00: times [place] solution 00 daily. [facility] albuterol 2021-0 Yes [id number] 2.5mg Inhale 3 [facility] 2.5 mg /3 3-10 mL every 2 ity of mL (0.083 00:00: (two) [place] %) 00 hours as Medical nebulizer needed for Bran ch solution Shortness of Breath or Wheezing. budesonide 2021-0 Yes [id number] .5mg Inhale 2 [facility] 0.5 mg/2 mL 3-10 mL 2 (two) it y of nebulizer 00:00: times [place] solution 00 daily. [facility] albuterol 2021-0 Yes [id number] 2.5mg Inhale 3 [facility] 2.5 mg /3 3-10 mL every 2 ity of mL (0.083 00:00: (two) [place] %) 00 hours as Medical nebulizer needed for Bran ch solution Shortness of Breath or Wheezing. budesonide 2021-0 Yes [id number] .5mg Inhale 2 [facility] 0.5 mg/2 mL 3-10 mL 2 (two) it y of nebulizer 00:00: times [place] solution 00 daily. [facility] albuterol 2021-0 Yes [id number] 2.5mg Inhale 3 [facility] 2.5 mg /3 3-10 mL every 2 ity of mL (0.083 00:00: (two) [place] %) 00 hours as Medical nebulizer needed for Bran ch solution Shortness of Breath or Wheezing. budesonide 2021-0 Yes [id number] .5mg Inhale 2 [facility] 0.5 mg/2 mL 3-10 mL 2 (two) it y of nebulizer 00:00: times [place] solution 00 daily. [facility] albuterol 2021-0 Yes [id number] 2.5mg Inhale 3 [facility] 2.5 mg /3 3-10 mL every 2 ity of mL (0.083 00:00: (two) [place] %) 00 hours as Medical nebulizer needed for Bran ch solution Shortness of Breath or Wheezing. budesonide 2022-0 Yes [id number] .5mg Inhale 2 [facility] 0.5 mg/2 mL 3-10 mL 2 (two) it y of nebulizer 00:00: times [place] solution 00 daily. [facility] budesonide 2022-0 Yes [id number] .5mg Inhale 2 [facility] 0.5 mg/2 mL 3-10 mL 2 (two) it y of nebulizer 00:00: times [place] solution 00 daily. [facility] budesonide 2022-0 Yes [id number] .5mg Inhale 2 [facility] 0.5 mg/2 mL 3-10 mL 2 (two) it y of nebulizer 00:00: times [place] solution 00 daily. [facility] budesonide 2022-0 Yes [id number] .5mg Inhale 2 [facility] 0.5 mg/2 mL 3-10 mL 2 (two) it y of nebulizer 00:00: times [place] solution 00 daily. [facility] budesonide 2022-0 Yes [id number] .5mg Inhale 2 [facility] 0.5 mg/2 mL 3-10 mL 2 (two) it y of nebulizer 00:00: times [place] solution 00 daily. [facility] budesonide 2-0 Yes [id number] .5mg Inhale 2 [facility] 0.5 mg/2 mL 3-10 mL 2 (two) it y of nebulizer 00:00: times [place] solution 00 daily. [facility] budesonide 2022-0 Yes [id number] .5mg Inhale 2 [facility] 0.5 mg/2 mL 3-10 mL 2 (two) it y of nebulizer 00:00: times [place] solution 00 daily. [facility] budesonide 2022-0 Yes [id number] .5mg Inhale 2 [facility] 0.5 mg/2 mL 3-10 mL 2 (two) it y of nebulizer 00:00: times [place] solution 00 daily. [facility] budesonide 2022-0 Yes [id number] .5mg Inhale 2 [facility] 0.5 mg/2 mL 3-10 mL 2 (two) it y of nebulizer 00:00: times [place] solution 00 daily. [facility] budesonide 2022-0 Yes [id number] .5mg Inhale 2 [facility] 0.5 mg/2 mL 3-10 mL 2 (two) it y of nebulizer 00:00: times [place] solution 00 daily. [facility] budesonide 2022-0 Yes [id number] .5mg Inhale 2 [facility] 0.5 mg/2 mL 3-10 mL 2 (two) it y of nebulizer 00:00: times [place] solution 00 daily. [facility] budesonide 2022-0 Yes [id number] .5mg Inhale 2 [facility] 0.5 mg/2 mL 3-10 mL 2 (two) it y of nebulizer 00:00: times [place] solution 00 daily. [facility] budesonide 2022-0 Yes [id number] .5mg Inhale 2 [facility] 0.5 mg/2 mL 3-10 mL 2 (two) it y of nebulizer 00:00: times [place] solution 00 daily. [facility] budesonide 2022-0 Yes [id number] .5mg Inhale 2 [facility] 0.5 mg/2 mL 3-10 mL 2 (two) it y of nebulizer 00:00: times [place] solution 00 daily. [facility] budesonide 2-0 Yes [id number] .5mg Inhale 2 [facility] 0.5 mg/2 mL 3-10 mL 2 (two) it y of nebulizer 00:00: times [place] solution 00 daily. [facility] budesonide 2-0 Yes [id number] .5mg Inhale 2 [facility] 0.5 mg/2 mL 3-10 mL 2 (two) it y of nebulizer 00:00: times [place] solution 00 daily. [facility] budesonide 2022-0 Yes [id number] .5mg Inhale 2 [facility] 0.5 mg/2 mL 3-10 mL 2 (two) it y of nebulizer 00:00: times [place] solution 00 daily. [facility] budesonide 2022-0 Yes [id number] .5mg Inhale 2 [facility] 0.5 mg/2 mL 3-10 mL 2 (two) it y of nebulizer 00:00: times [place] solution 00 daily. [facility] budesonide 2022-0 Yes [id number] .5mg Inhale 2 [facility] 0.5 mg/2 mL 3-10 mL 2 (two) it y of nebulizer 00:00: times [place] solution 00 daily. [facility] budesonide 2022-0 Yes [id number] .5mg Inhale 2 [facility] 0.5 mg/2 mL 3-10 mL 2 (two) it y of nebulizer 00:00: times [place] solution 00 daily. [facility] budesonide 2022-0 Yes [id number] .5mg Inhale 2 [facility] 0.5 mg/2 mL 3-10 mL 2 (two) it y of nebulizer 00:00: times [place] solution 00 daily. [facility] budesonide 2022-0 Yes [id number] .5mg Inhale 2 [facility] 0.5 mg/2 mL 3-10 mL 2 (two) it y of nebulizer 00:00: times [place] solution 00 daily. [facility] budesonide 2022-0 Yes [id number] .5mg Inhale 2 [facility] 0.5 mg/2 mL 3-10 mL 2 (two) it y of nebulizer 00:00: times [place] solution 00 daily. [facility] budesonide 2022-0 Yes [id number] .5mg Inhale 2 [facility] 0.5 mg/2 mL 3-10 mL 2 (two) it y of nebulizer 00:00: times [place] solution 00 daily. [facility] budesonide 2-0 Yes [id number] .5mg Inhale 2 [facility] 0.5 mg/2 mL 3-10 mL 2 (two) it y of nebulizer 00:00: times [place] solution 00 daily. [facility] budesonide 2-0 Yes [id number] .5mg Inhale 2 [facility] 0.5 mg/2 mL 3-10 mL 2 (two) it y of nebulizer 00:00: times [place] solution 00 daily. [facility] budesonide 2022-0 Yes [id number] .5mg Inhale 2 [facility] 0.5 mg/2 mL 3-10 mL 2 (two) it y of nebulizer 00:00: times [place] solution 00 daily. [facility] budesonide 2022-0 Yes [id number] .5mg Inhale 2 [facility] 0.5 mg/2 mL 3-10 mL 2 (two) it y of nebulizer 00:00: times [place] solution 00 daily. [facility] budesonide 2022-0 Yes [id number] .5mg Inhale 2 [facility] 0.5 mg/2 mL 3-10 mL 2 (two) it y of nebulizer 00:00: times [place] solution 00 daily. [facility] budesonide 2022-0 Yes [id number] .5mg Inhale 2 [facility] 0.5 mg/2 mL 3-10 mL 2 (two) it y of nebulizer 00:00: times [place] solution 00 daily. [facility] budesonide 2021-0 Yes [id number] .5mg Inhale 2 [facility] 0.5 mg/2 mL 3-10 mL 2 (two) it y of nebulizer 00:00: times [place] solution 00 daily. [facility] budesonide 2021-0 Yes [id number] .5mg Inhale 2 [facility] 0.5 mg/2 mL 3-10 mL 2 (two) it y of nebulizer 00:00: times [place] solution 00 daily. [facility] budesonide 2021-0 Yes [id number] .5mg Inhale 2 [facility] 0.5 mg/2 mL 3-10 mL 2 (two) it y of nebulizer 00:00: times [place] solution 00 daily. [facility] budesonide 2021-0 Yes [id number] .5mg Inhale 2 [facility] 0.5 mg/2 mL 3-10 mL 2 (two) it y of nebulizer 00:00: times [place] solution 00 daily. [facility] budesonide 2022- No [id number] .5mg Inhale 2 [facility] 0.5 mg/2 mL 3-10 01-05 mL 2 (two) i ty of nebulizer 00:00: 00:00 times [place] solution 00 :00 daily. [facility] budesonide 2021-0 2022- No [id number] .5mg Inhale 2 [facility] 0.5 mg/2 mL 3-10 01-05 mL 2 (two) i ty of nebulizer 00:00: 00:00 times [place] solution 00 :00 daily. [facility] budesonide 2021-0 2022- No [id number] .5mg Inhale 2 [facility] 0.5 mg/2 mL 3-10 01-05 mL 2 (two) i ty of nebulizer 00:00: 00:00 times [place] solution 00 :00 daily. [facility] budesonide 2021-0 2022- No [id number] .5mg Inhale 2 [facility] 0.5 mg/2 mL 3-10 01-05 mL 2 (two) i ty of nebulizer 00:00: 00:00 times [place] solution 00 :00 daily. [facility] albuterol 2021-0 2- No [id number] 2.5mg Inhale 3 [facility] 2.5 mg /3 3-10 09-29 mL every 2 ity of mL (0.083 00:00: 00:00 (two) [place] %) 00 :00 hours as Medical nebulizer needed for Bran ch solution Shortness of Breath or Wheezing. albuterol 2- No [id number] 2.5mg Inhale 3 [facility] 2.5 mg /3 3-10 09-29 mL every 2 ity of mL (0.083 00:00: 00:00 (two) [place] %) 00 :00 hours as Medical nebulizer needed for Bran ch solution Shortness of Breath or Wheezing. albuterol 2- No [id number] 2.5mg Inhale 3 [facility] 2.5 mg /3 3-10 09-29 mL every 2 ity of mL (0.083 00:00: 00:00 (two) [place] %) 00 :00 hours as Medical nebulizer needed for Bran ch solution Shortness of Breath or Wheezing. Nebulizer Yes [id number] Provide [facility] Access[facility] 3-04 nebulizer ity of Kit 00:00: kit and [place] 00 appropriat Medical e Branch accessorie s. Nebulizer Yes [id number] Provide [facility] Accessories 3-04 nebulizer ity of Kit 00:00: kit and [place] 00 appropriat Medical e [facility] accessorie s. Nebulizer Yes [id number] Provide [facility] Accessories 3-04 nebulizer ity of Kit 00:00: kit and [place] 00 appropriat Medical e Branch accessorie s. Nebulizer 0 Yes [id number] Provide [facility] Accessories 3-04 nebulizer ity of Kit 00:00: kit and [place] 00 appropriat Medical e [facility] accessorie s. Nebulizer 0 Yes [id number] Provide [facility] Accessories 3-04 nebulizer ity of Kit 00:00: kit and [place] 00 appropriat Medical e Branch accessorie s. Nebulizer 0 Yes [id number] Provide [facility] Accessories 3-04 nebulizer ity of Kit 00:00: kit and [place] 00 appropriat Medical e [facility] accessorie s. Nebulizer 0 Yes [id number] Provide [facility] Accessories 3-04 nebulizer ity of Kit 00:00: kit and [place] 00 appropriat Medical e Branch accessorie s. Nebulizer 2022-0 Yes [id number] Provide [facility] Accessories 3-04 nebulizer ity of Kit 00:00: kit and [place] 00 appropriat [facility] e [facility] accessorie s. Nebulizer 0 Yes [id number] Provide [facility] Accessories 3-04 nebulizer ity of Kit 00:00: kit and [place] 00 appropriat [facility] e [facility] accessorie s. Nebulizer 0 Yes [id number] Provide [facility] Accessories 3-04 nebulizer ity of Kit 00:00: kit and [place] 00 appropriat Medical e [facility] accessorie s. Nebulizer 0 Yes [id number] Provide [facility] Accessories 3-04 nebulizer ity of Kit 00:00: kit and [place] 00 appropriat Medical e Branch accessorie s. Nebulizer 0 Yes [id number] Provide [facility] Accessories 3-04 nebulizer ity of Kit 00:00: kit and [place] 00 appropriat Medical e Branch accessorie s. Nebulizer 0 Yes [id number] Provide [facility] Accessories 3-04 nebulizer ity of Kit 00:00: kit and 00 appropriat Medical e [facility] accessorie s. Nebulizer 0 Yes [id number] Provide [facility] Accessories 3-04 nebulizer ity of Kit 00:00: kit and [place] 00 appropriat Medical e [facility] accessorie s. Nebulizer 0 Yes [id number] Provide [facility] Accessories 3-04 nebulizer ity of Kit 00:00: kit and [place] 00 appropriat Medical e [facility] accessorie s. Nebulizer 0 Yes [id number] Provide [facility] Accessories 3-04 nebulizer ity of Kit 00:00: kit and 00 appropriat Medical e [facility] accessorie s. Nebulizer 2021-0 Yes [id number] Provide [facility] Accessories 3-04 nebulizer ity of Kit 00:00: kit and [place] 00 appropriat Medical e [facility] accessorie s. Nebulizer 0 Yes [id number] Provide [facility] Accessories 3-04 nebulizer ity of Kit 00:00: kit and [place] 00 appropriat Medical e [facility] accessorie s. Nebulizer 0 Yes [id number] Provide [facility] Accessories 3-04 nebulizer ity of Kit 00:00: kit and 00 appropriat Medical e [facility] accessorie s. Nebulizer 0 Yes [id number] Provide [facility] Accessories 3-04 nebulizer ity of Kit 00:00: kit and [place] 00 appropriat Medical e [facility] accessorie s. Nebulizer 2021-0 Yes [id number] Provide [facility] Accessories 3-04 nebulizer ity of Kit 00:00: kit and [place] 00 appropriat Medical e [facility] accessorie s. Nebulizer 2021-0 Yes [id number] Provide [facility] Accessories 3-04 nebulizer ity of Kit 00:00: kit and [place] 00 appropriat Medical e [facility] accessorie s. Nebulizer 2021-0 Yes [id number] Provide [facility] Accessories 3-04 nebulizer ity of Kit 00:00: kit and [place] 00 appropriat Medical e [facility] accessorie s. Nebulizer 2021-0 Yes [id number] Provide [facility] Accessories 3-04 nebulizer ity of Kit 00:00: kit and [place] 00 appropriat Medical e [facility] accessorie s. Nebulizer 2021-0 Yes [id number] Provide [facility] Accessories 3-04 nebulizer ity of Kit 00:00: kit and [place] 00 appropriat Medical e [facility] accessorie s. Nebulizer 2021-0 Yes [id number] Provide [facility] Accessories 3-04 nebulizer ity of Kit 00:00: kit and [place] 00 appropriat Medical e [facility] accessorie s. Nebulizer 2021-0 Yes [id number] Provide [facility] Accessories 3-04 nebulizer ity of Kit 00:00: kit and [place] 00 appropriat Medical e [facility] accessorie s. Nebulizer 2021-0 Yes [id number] Provide [facility] Accessories 3-04 nebulizer ity of Kit 00:00: kit and [place] 00 appropriat Medical e [facility] accessorie s. Nebulizer 2021-0 Yes [id number] Provide [facility] Accessories 3-04 nebulizer ity of Kit 00:00: kit and [place] 00 appropriat Medical e [facility] accessorie s. Nebulizer 2021-0 Yes [id number] Provide [facility] Accessories 3-04 nebulizer ity of Kit 00:00: kit and [place] 00 appropriat Medical e [facility] accessorie s. Nebulizer 2021-0 Yes [id number] Provide [facility] Accessories 3-04 nebulizer ity of Kit 00:00: kit and [place] 00 appropriat Medical e [facility] accessorie s. Nebulizer 2021-0 Yes [id number] Provide [facility] Accessories 3-04 nebulizer ity of Kit 00:00: kit and [place] 00 appropriat Medical e [facility] accessorie s. Nebulizer 2021-0 Yes [id number] Provide [facility] Accessories 3-04 nebulizer ity of Kit 00:00: kit and [place] 00 appropriat Medical e [facility] accessorie s. Nebulizer 2021-0 Yes [id number] Provide [facility] Accessories 3-04 nebulizer ity of Kit 00:00: kit and 00 appropriat [facility] e [facility] accessorie s. Nebulizer 2021-0 Yes [id number] Provide [facility] Accessories 3-04 nebulizer ity of Kit 00:00: kit and [place] 00 appropriat Medical e [facility] accessorie s. Nebulizer 2021-0 Yes [id number] Provide [facility] Accessories 3-04 nebulizer ity of Kit 00:00: kit and 00 appropriat Medical e [facility] accessorie s. Nebulizer 2021-0 Yes [id number] Provide [facility] Accessories 3-04 nebulizer ity of Kit 00:00: kit and 00 appropriat [facility] accessorie s. Nebulizer 2021-0 Yes [id number] Provide [facility] Accessories 3-04 nebulizer ity of Kit 00:00: kit and appropriat [facility] e [facility] accessorie s. Nebulizer 2021-0 Yes [id number] Provide [facility] Accessories 3-04 nebulizer ity of Kit 00:00: kit and appropriat [facility] accessorie s. Nebulizer 2021-0 Yes [id number] Provide [facility] Accessories 3-04 nebulizer ity of Kit 00:00: kit and appropriat [facility] accessorie s. Nebulizer 2021-0 Yes [id number] Provide [facility] Accessories 3-04 nebulizer ity of Kit 00:00: kit and appropriat [facility] accessorie s. Nebulizer 2021-0 Yes [id number] Provide [facility] Accessories 3-04 nebulizer ity of Kit 00:00: kit and appropriat [facility] accessorie s. Nebulizer 2021-0 Yes [id number] Provide [facility] Accessories 3-04 nebulizer ity of Kit 00:00: kit and 00 appropriat [facility] accessorie s. Nebulizer 2021-0 Yes [id number] Provide [facility] Accessories 3-04 nebulizer ity of Kit 00:00: kit and 00 appropriat [facility] e [facility] accessorie s. Nebulizer 0 Yes [id number] Provide [facility] Accessories 3-04 nebulizer ity of Kit 00:00: kit and [place] 00 appropriat Medical e [facility] accessorie s. Nebulizer 0 Yes [id number] Provide [facility] Accessories 3-04 nebulizer ity of Kit 00:00: kit and [place] 00 appropriat Medical e [facility] accessorie s. Nebulizer 0 Yes [id number] Provide [facility] Accessories 3-04 nebulizer ity of Kit 00:00: kit and [place] 00 appropriat Medical e [facility] accessorie s. Nebulizer 0 Yes [id number] Provide [facility] Accessories 3-04 nebulizer ity of Kit 00:00: kit and [place] 00 appropriat Medical e [facility] accessorie s. Nebulizer 0 Yes [id number] Provide [facility] Accessories 3-04 nebulizer ity of Kit 00:00: kit and [place] 00 appropriat Medical e [facility] accessorie s. Nebulizer 0 Yes [id number] Provide [facility] Accessories 3-04 nebulizer ity of Kit 00:00: kit and [place] 00 appropriat Medical e [facility] accessorie s. Nebulizer 0 Yes [id number] Provide [facility] Accessories 3-04 nebulizer ity of Kit 00:00: kit and 00 appropriat Medical e [facility] accessorie s. Nebulizer 0 Yes [id number] Provide [facility] Accessories 3-04 nebulizer ity of Kit 00:00: kit and [place] 00 appropriat [facility] e [facility] accessorie s. Nebulizer 0 Yes [id number] Provide [facility] Accessories 3-04 nebulizer ity of Kit 00:00: kit and [place] 00 appropriat [facility] accessorie s. Nebulizer 0 Yes [id number] Provide [facility] Accessories 3-04 nebulizer ity of Kit 00:00: kit and 00 appropriat [facility] accessorie s. Nebulizer 0 Yes [id number] Provide [facility] Accessories 3-04 nebulizer ity of Kit 00:00: kit and [place] 00 appropriat [facility] e [facility] accessorie s. Nebulizer 0 Yes [id number] Provide [facility] Accessories 3-04 nebulizer ity of Kit 00:00: kit and appropriat [facility] accessorie s. Nebulizer 0 Yes [id number] Provide [facility] Accessories 3-04 nebulizer ity of Kit 00:00: kit and [place] 00 appropriat Medical e [facility] accessorie s. Nebulizer 0 Yes [id number] Provide [facility] Accessories 3-04 nebulizer ity of Kit 00:00: kit and [place] 00 appropriat Medical e [facility] accessorie s. Nebulizer 0 Yes [id number] Provide [facility] Accessories 3-04 nebulizer ity of Kit 00:00: kit and [place] 00 appropriat Medical e [facility] accessorie s. Nebulizer 0 Yes [id number] Provide [facility] Accessories 3-04 nebulizer ity of Kit 00:00: kit and [place] 00 appropriat [facility] accessorie s. Nebulizer 0 Yes [id number] Provide [facility] Accessories 3-04 nebulizer ity of Kit 00:00: kit and [place] 00 appropriat Medical e [facility] accessorie s. Nebulizer 0 Yes [id number] Provide [facility] Accessories 3-04 nebulizer ity of Kit 00:00: kit and [place] 00 appropriat [facility] accessorie s. Nebulizer 0 Yes [id number] Provide [facility] Accessories 3-04 nebulizer ity of Kit 00:00: kit and [place] 00 appropriat Medical e [facility] accessorie s. Nebulizer 0 Yes [id number] Provide [facility] Accessories 3-04 nebulizer ity of Kit 00:00: kit and [place] 00 appropriat [facility] accessorie s. Nebulizer 0 Yes [id number] Provide [facility] Accessories 3-04 nebulizer ity of Kit 00:00: kit and [place] 00 appropriat Medical e [facility] accessorie s. Nebulizer 2021-0 Yes [id number] Provide [facility] Accessories 3-04 nebulizer ity of Kit 00:00: kit and [place] 00 appropriat [facility] accessorie s. Nebulizer 0 Yes [id number] Provide [facility] Accessories 3-04 nebulizer ity of Kit 00:00: kit and [place] 00 appropriat [facility] e [facility] accessorie s. Nebulizer 0 Yes [id number] Provide [facility] Accessories 3-04 nebulizer ity of Kit 00:00: kit and [place] 00 appropriat Medical e [facility] accessorie s. Nebulizer 2022-0 Yes [id number] Provide [facility] Accessories 3-04 nebulizer ity of Kit 00:00: kit and [place] 00 appropriat [facility] e [facility] accessorie s. Nebulizer 2021-0 Yes [id number] Provide [facility] Accessories 3-04 nebulizer ity of Kit 00:00: kit and [place] 00 appropriat [facility] e [facility] accessorie s. Nebulizer 2021-0 Yes [id number] Provide [facility] Accessories 3-04 nebulizer ity of Kit 00:00: kit and 00 appropriat Medical e [facility] accessorie s. Nebulizer 2021-0 Yes [id number] Provide [facility] Accessories 3-04 nebulizer ity of Kit 00:00: kit and 00 appropriat Medical e [facility] accessorie s. Nebulizer 2021-0 Yes [id number] Provide [facility] Accessories 3-04 nebulizer ity of Kit 00:00: kit and 00 appropriat Medical e [facility] accessorie s. Nebulizer 2021-0 Yes [id number] Provide [facility] Accessories 3-04 nebulizer ity of Kit 00:00: kit and 00 appropriat Medical e [facility] accessorie s. Nebulizer 2021-0 Yes [id number] Provide [facility] Accessories 3-04 nebulizer ity of Kit 00:00: kit and 00 appropriat Medical e [facility] accessorie s. Nebulizer 2021-0 Yes [id number] Provide [facility] Accessories 3-04 nebulizer ity of Kit 00:00: kit and 00 appropriat Medical e [facility] accessorie s. Nebulizer 2021-0 Yes [id number] Provide [facility] Accessories 3-04 nebulizer ity of Kit 00:00: kit and 00 appropriat Medical e Branch accessorie s. ipratropium 2020-03 Yes [id number] .5mg Inhale 2.5 [facility] 0.02 % 2-03 mL every 4 ity of nebulizer 00:00: (four) [place] solution 00 hours as Medical needed for Branch Wheezing or Shortness of Breath. ipratropium 2020-03 Yes [id number] .5mg Inhale 2.5 [facility] 0.02 % 2-03 mL every 4 ity of nebulizer 00:00: (four) [place] solution 00 hours as Medical needed for Branch Wheezing or Shortness of Breath. ipratropium 2020-03 Yes [id number] .5mg Inhale 2.5 [facility] 0.02 % 2-03 mL every 4 ity of nebulizer 00:00: (four) [place] solution 00 hours as Medical needed for Branch Wheezing or Shortness of Breath. ipratropium 2020-1 Yes [id number] .5mg Inhale 2.5 [facility] 0.02 % 2-03 mL every 4 ity of nebulizer 00:00: (four) [place] solution 00 hours as Medical needed for Branch Wheezing or Shortness of Breath. ipratropium 2020- Yes [id number] .5mg Inhale 2.5 [facility] 0.02 % 2-03 mL every 4 ity of nebulizer 00:00: (four) [place] solution 00 hours as Medical needed for Branch Wheezing or Shortness of Breath. ipratropium 2020-1 Yes [id number] .5mg Inhale 2.5 [facility] 0.02 % 2-03 mL every 4 ity of nebulizer 00:00: (four) [place] solution 00 hours as Medical needed for Branch Wheezing or Shortness of Breath. ipratropium 2020- Yes [id number] .5mg Inhale 2.5 [facility] 0.02 % 2-03 mL every 4 ity of nebulizer 00:00: (four) [place] solution 00 hours as Medical needed for Branch Wheezing or Shortness of Breath. ipratropium 2020-1 Yes [id number] .5mg Inhale 2.5 [facility] 0.02 % 2-03 mL every 4 ity of nebulizer 00:00: (four) [place] solution 00 hours as Medical needed for Branch Wheezing or Shortness of Breath. ipratropium 2020-1 Yes [id number] .5mg Inhale 2.5 [facility] 0.02 % 2-03 mL every 4 ity of nebulizer 00:00: (four) [place] solution 00 hours as Medical needed for Branch Wheezing or Shortness of Breath. ipratropium 2020-1 Yes [id number] .5mg Inhale 2.5 [facility] 0.02 % 2-03 mL every 4 ity of nebulizer 00:00: (four) [place] solution 00 hours as Medical needed for Branch Wheezing or Shortness of Breath. ipratropium 2020-1 Yes [id number] .5mg Inhale 2.5 [facility] 0.02 % 2-03 mL every 4 ity of nebulizer 00:00: (four) [place] solution 00 hours as Medical needed for Branch Wheezing or Shortness of Breath. ipratropium 2020-03 Yes [id number] .5mg Inhale 2.5 [facility] 0.02 % 2-03 mL every 4 ity of nebulizer 00:00: (four) [place] solution 00 hours as Medical needed for Branch Wheezing or Shortness of Breath. ipratropium 2020-03 Yes [id number] .5mg Inhale 2.5 [facility] 0.02 % 2-03 mL every 4 ity of nebulizer 00:00: (four) [place] solution 00 hours as Medical needed for Branch Wheezing or Shortness of Breath. ipratropium 2020-03 Yes [id number] .5mg Inhale 2.5 [facility] 0.02 % 2-03 mL every 4 ity of nebulizer 00:00: (four) [place] solution 00 hours as Medical needed for Branch Wheezing or Shortness of Breath. ipratropium 2020-03- No [id number] .5mg Inhale 2.5 [facility] 0.02 % 2-03 09-29 mL every 4 ity of nebulizer 00:00: 00:00 (four) [place] solution 00 :00 hours as Medical needed for Branch Wheezing or Shortness of Breath. ipratropium 2020-03- No [id number] .5mg Inhale 2.5 [facility] 0.02 % 2-03 09-29 mL every 4 ity of nebulizer 00:00: 00:00 (four) [place] solution 00 :00 hours as Medical needed for Branch Wheezing or Shortness of Breath. ipratropium 2020-03- No [id number] .5mg Inhale 2.5 [facility] 0.02 % 2-03 09-29 mL every 4 ity of nebulizer 00:00: 00:00 (four) [place] solution 00 :00 hours as Medical needed for Branch Wheezing or Shortness of Breath. insulin 2018-03 2020- No [id number] TAKE 10 Un renetta detemir 227 01-10 UNITS IN ity of U-100 00:00: 00:00 THE [place] (LEVEMIR 00 :00 MORNING Medical U-100 AND THEN Branch INSULIN) TAKE 10 100 unit/mL UNITS AT injection NIGHT fluticasone 2018-03 2020- No [id number] 1{puff} Inhale 1 [facility] furoate-fitz 2-20 02-18 Puff ity of anterol 00:00: 00:00 daily. [place] (BREO 00 :00 Medical ELLIPTA) Branch 100-25 mcg/dose DsDv predniSONE 2018-03 2020- No [id number] 10mg Take 0.5 [facility] 20 mg 2-20 -17 tablets by ity of tablet 00:00: 00:00 mouth [place] 00 :00 daily. Medical Branch LEVOTHYROXI 2018-03 2020- No [id number] 137ug TAKE 1 Univers NE 137 mcg 2-20 05-18 TABLET BY ity of tablet 00:00: 00:00 MOUTH [place] 00 :00 EVERY Medical MORNING Branch FUROSEMIDE 2018-03 2020- No [id number] 40mg TAKE 1 [facility] 40 mg 2-19 -17 TABLET BY ity of tablet 00:00: 00:00 MOUTH [place] 00 :00 EVERY Medical MORNING Branch Insulin 2018-03 2020- No [id number] 5U inject 5 U nivers Lispro, 2-16 01-10 Units ity of Human, 100 00:00: 00:00 [place] unit/mL 00 :00 skin 3 Medical cartridge (three) Branch times daily with meals for 30 days. Polyethylen 2018-03 2020- No [id number] 17g Take 1 Univers e Glycol 2-15 -19 Packet by ity o f 3350 17 00:00: 00:00 mouth [place] gram powder 00 :00 daily. Medica l Branch Insulin 2018-03 2020- No [id number] Use as Un renetta [place], 2-14 10-20 directed ity of Disposable, 00:00: 00:00 [place] 32 gauge x 00 :00 Medical 5/16" [place] Branch sodium 2018-03 Yes [id number] 4mL Inhale 4 Un renetta chloride 7% 1-22 mL 2 (two) it y of nebulizer 00:00: times [place] solution 00 daily. Medical Branch sodium 2018-03 Yes [id number] 4mL Inhale 4 Un renetta chloride 7% 1-22 mL 2 (two) it y of nebulizer 00:00: times [place] solution 00 daily. Medical Branch sodium 2018-03 Yes [id number] 4mL Inhale 4 Un renetta chloride 7% 1-22 mL 2 (two) it y of nebulizer 00:00: times [place] solution 00 daily. Medical Branch sodium 2018-03 Yes [id number] 4mL Inhale 4 Un renetta chloride 7% 1-22 mL 2 (two) it y of nebulizer 00:00: times [place] solution 00 daily. Medical Branch sodium 2019- Yes [id number] 4mL Inhale 4 Un renetta chloride 7% 1-22 mL 2 (two) it y of nebulizer 00:00: times [place] solution 00 daily. Medical Branch sodium 2018- Yes [id number] 4mL Inhale 4 Un renetta chloride 7% 1-22 mL 2 (two) it y of nebulizer 00:00: times [place] solution 00 daily. Medical Branch sodium 2018- Yes [id number] 4mL Inhale 4 Un renetta chloride 7% 1-22 mL 2 (two) it y of nebulizer 00:00: times [place] solution 00 daily. Medical Branch sodium 2018- Yes [id number] 4mL Inhale 4 Un renetta chloride 7% 1-22 mL 2 (two) it y of nebulizer 00:00: times [place] solution 00 daily. Medical Branch sodium 2018- Yes [id number] 4mL Inhale 4 Un renetta chloride 7% 1-22 mL 2 (two) it y of nebulizer 00:00: times [place] solution 00 daily. Medical Branch sodium 2018- Yes [id number] 4mL Inhale 4 Un renetta chloride 7% 1-22 mL 2 (two) it y of nebulizer 00:00: times [place] solution 00 daily. Medical Branch sodium 2018- Yes [id number] 4mL Inhale 4 Un renetta chloride 7% 1-22 mL 2 (two) it y of nebulizer 00:00: times [place] solution 00 daily. Medical Branch sodium 2018- Yes [id number] 4mL Inhale 4 Un renetta chloride 7% 1-22 mL 2 (two) it y of nebulizer 00:00: times [place] solution 00 daily. Medical Branch sodium 2018- Yes [id number] 4mL Inhale 4 Un renetta chloride 7% 1-22 mL 2 (two) it y of nebulizer 00:00: times [place] solution 00 daily. Medical Branch sodium 2019- Yes [id number] 4mL Inhale 4 Un renetta chloride 7% 1-22 mL 2 (two) it y of nebulizer 00:00: times [place] solution 00 daily. Medical Branch sodium 2018- Yes [id number] 4mL Inhale 4 Un renetta chloride 7% 1-22 mL 2 (two) it y of nebulizer 00:00: times [place] solution 00 daily. Medical Branch sodium 2018-03 Yes [id number] 4mL Inhale 4 Un renetta chloride 7% 1-22 mL 2 (two) it y of nebulizer 00:00: times [place] solution 00 daily. Medical Branch sodium 2018-03 Yes [id number] 4mL Inhale 4 Un renetta chloride 7% 1-22 mL 2 (two) it y of nebulizer 00:00: times [place] solution 00 daily. Medical Branch sodium 2018-03 Yes [id number] 4mL Inhale 4 Un renetta chloride 7% 1-22 mL 2 (two) it y of nebulizer 00:00: times [place] solution 00 daily. Medical Branch sodium 2018-03 Yes [id number] 4mL Inhale 4 Un renetta chloride 7% 1-22 mL 2 (two) it y of nebulizer 00:00: times [place] solution 00 daily. Medical Branch sodium 2018-03 Yes [id number] 4mL Inhale 4 Un renetta chloride 7% 1-22 mL 2 (two) it y of nebulizer 00:00: times [place] solution 00 daily. Medical Branch sodium 2018-03- No [id number] 4mL Inhale 4 U nivers chloride 7% 1-22 10-05 mL 2 (two) i ty of nebulizer 00:00: 00:00 times [place] solution 00 :00 daily. Medical Branch sodium 2018-03- No [id number] 4mL Inhale 4 U nivers chloride 7% 1-22 10-05 mL 2 (two) i ty of nebulizer 00:00: 00:00 times [place] solution 00 :00 daily. Medical Branch sodium 2018-03- No [id number] 4mL Inhale 4 U nivers chloride 7% 1-22 10-05 mL 2 (two) i ty of nebulizer 00:00: 00:00 times [place] solution 00 :00 daily. Medical Branch sodium 2018-03- No [id number] 4mL Inhale 4 U nivers chloride 7% 1-22 10-05 mL 2 (two) i ty of nebulizer 00:00: 00:00 times [place] solution 00 :00 daily. Medical Branch albuterol 2018-03- No [id number] 2.5mg Inhale 3 [facility] 2.5 mg /3 1-22 12-03 mL every 4 ity of mL (0.083 00:00: 00:00 (four) [place] %) 00 :00 hours as Medical nebulizer needed for Bran ch solution Wheezing or Shortness of Breath. fluticasone 2018-03 2020- No [id number] 1{spray Use 1 [facility] propionate 03-25 } [place] in ity of 50 00:00: 00:00 each [place] mcg/actuati 00 :00 nostril 2 Med ical on nasal (two) Branch spray times daily. cetirizine 2018-03 2020- No [id number] 10mg Take 1 [facility] 10 mg 03-25 tablet by ity of tablet 00:00: 00:00 mouth [place] 00 :00 daily. Medical Branch ipratropium 2018-03 2020- No [id number] .5mg Inhale 2.5 [facility] 0.02 % 03-25 06-11 mL every 4 ity of nebulizer 00:00: 00:00 (four) [place] solution 00 :00 hours as Medical needed for Branch Wheezing or Shortness of Breath. Docusate 2018-03 No Notes: [facility] 1-16 (Same as: l 15:00: Colace) [place] 00 (Do Not Crush) Docusate 2018-03 No Notes: [facility] 1-16 (Same as: l 15:00: Colace) [place] 00 (Do Not Crush) Docusate 2018-03 No Notes: [facility] 1-16 (Same as: l 15:00: Colace) [place] 00 (Do Not Crush) Docusate 2018-03 No Notes: [facility] 1-16 (Same as: l 15:00: Colace) [place] 00 (Do Not Crush) heparin 2018-03 No Notes: [facility] sodium, 1-16 porcine l porcine 06:00: heparin [place] 2500 UNT/ML 00 Injectable Solution heparin 2018-03 No Notes: [facility] sodium, 1-16 porcine l porcine 06:00: heparin [place] 2500 UNT/ML 00 Injectable Solution heparin 2018-03 No Notes: [facility] sodium, 1-16 porcine l porcine 06:00: heparin [place] 2500 UNT/ML 00 Injectable Solution heparin 2018-03 No Notes: [facility] sodium, 1-16 porcine l porcine 06:00: heparin [place] 2500 UNT/ML 00 Injectable Solution methylPREDN 2018-03 No Notes: [place] dilcia ISolone 1-16 (Same l SODium 03:00: as:Solu-ME [place] nn SUCCinate 00 DROL, A-Methapre d) sennosides, 2018-03 No Notes: [place] dilcia MCC 1-16 (Same as: l 03:00: Senokot) [place] Azithromyci 2018-03 No Notes: [place] dilcia n 1-16 (Same As: l 03:00: Zithromax [place] 00 IV) methylPREDN 2018-03 No Notes: [place] dilcia ISolone 1-16 (Same l SODium 03:00: as:Solu-ME [place] nn SUCCinate 00 DROL, A-Methapre d) sennosides, 2018-03 No Notes: [place] dilcia MCC 1-16 (Same as: l 03:00: Senokot) [place] Azithromyci 2018-03 No Notes: [place] dilcia n 1-16 (Same As: l 03:00: Zithromax [place] 00 IV) methylPREDN 2018-03 No Notes: [place] dilcia ISolone 1-16 (Same l SODium 03:00: as:Solu-ME [place] nn SUCCinate 00 DROL, A-Methapre d) sennosides, 2018-03 No Notes: [place] dilcia MCC 1-16 (Same as: l 03:00: Senokot) [place] Azithromyci 2018-03 No Notes: [place] dilcia n 1-16 (Same As: l 03:00: Zithromax [place] 00 IV) methylPREDN 2018-03 No Notes: [place] dilcia ISolone 1-16 (Same l SODium 03:00: as:Solu-ME [place] nn SUCCinate 00 DROL, A-Methapre d) sennosides, 2018-03 No Notes: [place] dilcia MCC 1-16 (Same as: l 03:00: Senokot) [place] Azithromyci 2018-03 No Notes: [place] dilcia n 1-16 (Same As: l 03:00: Zithromax [place] 00 IV) Budesonide 2018-03 No Notes: Mem[facility] ia 1-16 (Same As: l 02:39: Pulmicort) [place] Budesonide 2018-03 No Notes: Memor ia 1-16 (Same As: l 02:39: Pulmicort) [place] Budesonide 2018-03 No Notes: Memor ia 1-16 (Same As: l 02:39: Pulmicort) [place] 00 Budesonide 2018-03 No Notes: Memor ia 1-16 (Same As: l 02:39: Pulmicort) [place] influenza 2018-03 No Notes: [facility] a virus 1-16 (Same as: l vaccine, 01:44: Fluzone [place] n inactivated 07 High-Dose) high-dose For 65 preservativ years of e-free age of intramuscul older (0.5 ar ml IM) suspension Shake well before use influenza 2018-03 No Notes: [facility] a virus 1-16 (Same as: l vaccine, 01:44: Fluzone [place] n inactivated 07 High-Dose) high-dose For 65 preservativ years of e-free age of intramuscul older (0.5 ar ml IM) suspension Shake well before use influenza 2018-03 No Notes: [facility]ori a virus 1-16 (Same as: l vaccine, 01:44: Fluzone [place] n inactivated 07 High-Dose) high-dose For 65 preservativ years of e-free age of intramuscul older (0.5 ar ml IM) suspension Shake well before use influenza 2018-03 No Notes: Memori a virus 1-16 (Same as: l vaccine, 01:44: Fluzone [place] n inactivated 07 High-Dose) high-dose For 65 preservativ years of e-free age of intramuscul older (0.5 ar ml IM) suspension Shake well before use Furosemide 2018-03 Yes 40 mg = 1 Me moria 40 MG Oral 1-16 tab, PO, l Tablet 01:31: Daily, 0 [place] [Lasix] 00 Refill(s) amLODIPine 2018-03 Yes 5 mg = 1 Mem oria 5 mg oral 1-16 tab, PO, l tablet 01:31: Daily, 0 [place] 00 Refill(s) Albuterol 2018-03 Yes 2.5 mg = 3 Me moria 0.83 MG/ML 1-16 mL, NEB, l Inhalant 01:31: Q6H, PRN [place] nn Solution 00 as needed for wheezing, 0 Refill(s) Furosemide 2018-03 Yes 40 mg = 1 Me moria 40 MG Oral 1-16 tab, PO, l Tablet 01:31: Daily, 0 [place] [Lasix] 00 Refill(s) amLODIPine 2018-03 Yes 5 mg = 1 Mem oria 5 mg oral 1-16 tab, PO, l tablet 01:31: Daily, 0 [place] 00 Refill(s) Albuterol 2018-03 Yes 2.5 mg = 3 Me moria 0.83 MG/ML 1-16 mL, NEB, l Inhalant 01:31: Q6H, PRN [place] nn Solution 00 as needed for wheezing, 0 Refill(s) Furosemide 2018-03 Yes 40 mg = 1 Me mor[place] 40 MG Oral 1-16 tab, PO, l Tablet 01:31: Daily, 0 [place] [Lasix] 00 Refill(s) amLODIPine 2018-03 Yes 5 mg = 1 Mem oria 5 mg oral 1-16 tab, PO, l tablet 01:31: Daily, 0 [place] 00 Refill(s) Albuterol 2018-03 Yes 2.5 mg = 3 Me moria 0.83 MG/ML 1-16 mL, NEB, l Inhalant 01:31: Q6H, PRN Jeimy nn Solution 00 as needed for wheezing, 0 Refill(s) Furosemide 2018-03 Yes 40 mg = 1 Me moria 40 MG Oral 1-16 tab, PO, l Tablet 01:31: Daily, 0 [place] [Lasix] 00 Refill(s) amLODIPine 2018-03 Yes 5 mg = 1 Mem oria 5 mg oral 1-16 tab, PO, l tablet 01:31: Daily, 0 [place] 00 Refill(s) Albuterol 2018-03 Yes 2.5 mg = 3 Me moria 0.83 MG/ML 1-16 mL, NEB, l Inhalant 01:31: Q6H, PRN Jeimy nn Solution 00 as needed for wheezing, 0 Refill(s) Dextrose 2018-03 No 12.5 gm, Memor ia 50% Syringe 1-16 25 mL, l 01:03: Route: [place] 00 IVP, Drug Form: INJ, Dosing Weight 93.636, kg, PRN, PRN Blood Glucose Results, Start date: 01/16/19 19:03:00 [employer]AUT[employer]IAN, Duration: 30 day, Stop date: 02/15/19 19:02:00 MORTUARY BEAUTICIAN, 0 Glucagon 2019- No 1 mg, Memoria 1-16 Route: IM, l 01:03: Drug form: [place] 00 PDR/INJ, PRN, Dosing Weight 93.636, kg, PRN Blood Glucose Results, Start date: 01/16/19 19:03:00 M[employer]AUT[employer]IAN, Duration: 30 day, Stop date: 02/15/19 19:02:00 MORTUARY BEAUTICIAN, 0 Insulin 2018- No Notes: [facility] Lispro 1-16 (Same as: l 01:03: Humalog) [place] 00 Roll in palms of hands gently; Do not shake vigorously . WASTE: F/P - Black; E - Municipal Trash Bin Stable for 28 days at room temperatur e. Expires in days from ____Date Dextrose 2018-03 No 12.5 gm, Memor ia 50% Syringe 1-16 25 mL, l 01:03: Route: [place] 00 IVP, Drug Form: INJ, Dosing Weight 93.636, kg, PRN, PRN Blood Glucose Results, Start date: 01/16/19 19:03:00 M[employer] BEAUTICIAN, Duration: 30 day, Stop date: 02/15/19 19:02:00 MORTUARY BEAUTICIAN, 0 Glucagon 2018-03 No 1 mg, Memoria 1-16 Route: IM, l 01:03: Drug form: [place] 00 PDR/INJ, PRN, Dosing Weight 93.636, kg, PRN Blood Glucose Results, Start date: 01/16/19 19:03:00 M[employer] BEAUTICIAN, Duration: 30 day, Stop date: 02/15/19 19:02:00 MORTUARY BEAUTICIAN, 0 Insulin 2018- No Notes: [facility] Lispro 1-16 (Same as: l :03: Humalog) [place] 00 Roll in palms of hands gently; Do not shake vigorously . WASTE: F/P - Black; E - Municipal Trash Bin Stable for 28 days at room temperatur e. Expires in days from ____Date Dextrose 2018-03 No 12.5 gm, Memor ia 50% Syringe 1-16 25 mL, l 01:03: Route: [place] 00 IVP, Drug Form: INJ, Dosing Weight 93.636, kg, PRN, PRN Blood Glucose Results, Start date: 01/16/19 19:03:00 M[employer] BEAUTICIAN, Duration: 30 day, Stop date: 02/15/19 19:02:00 MORTUARY BEAUTICIAN, 0 Glucagon 2019- No 1 mg, Memoria 1-16 Route: IM, l 01:03: Drug form: [place] 00 PDR/INJ, PRN, Dosing Weight 93.636, kg, PRN Blood Glucose Results, Start date: 01/16/19 19:03:00 M[employer]UARY BEAUTICIAN, Duration: 30 day, Stop date: 02/15/19 19:02:00 MORTUARY BEAUTICIAN, 0 Insulin 2018- No Notes: [facility] Lispro 1-16 (Same as: l 01:03: Humalog) [place] 00 Roll in palms of hands gently; Do not shake vigorously . WASTE: F/P - Black; E - Municipal Trash Bin Stable for 28 days at room temperatur e. Expires in days from ____Date Dextrose 2018- No 12.5 gm, Mem[facility] ia 50% Syringe 1-16 25 mL, l 01:03: Route: [place] 00 IVP, Drug Form: INJ, Dosing Weight 93.636, kg, PRN, PRN Blood Glucose Results, Start date: 01/16/19 19:03:00 M[employer] BEAUTICIAN, Duration: 30 day, Stop date: 02/15/19 19:02:00 MORTUARY BEAUTICIAN, 0 Glucagon 2018- No 1 mg, Memoria 1-16 Route: IM, l 01:03: Drug form: [place] 00 PDR/INJ, PRN, Dosing Weight 93.636, kg, PRN Blood Glucose Results, Start date: 01/16/19 19:03:00 M[employer]UARY BEAUTICIAN, Duration: 30 day, Stop date: 02/15/19 19:02:00 MORTUARY BEAUTICIAN, 0 Insulin 2018- No Notes: [facility] Lispro 1-16 (Same as: l 01:03: Humalog) [place] 00 Roll in palms of hands gently; Do not shake vigorously . WASTE: F/P - Black; E - Municipal Trash Bin Stable for 28 days at room temperatur e. Expires in days from ____Date Hydralazine 2018-03 No Notes: Randell dilcia 1-16 (Same as: l 01:01: Apresoline [place] 00 ) Push over 5 minutes Hydralazine 2018-03 No Notes: Randell dilcia 1-16 (Same as: l 01:01: Apresoline [place] ) Push over 5 minutes Hydralazine 2018-03 No Notes: [place] dilcia 1-16 (Same as: l 01:01: Apresoline [place] 00 ) Push over 5 minutes Hydralazine 2018-03 No Notes: [place]ell dilcia 1-16 (Same as: l 01:01: Apresoline [place] 00 ) Push over 5 minutes Albuterol 2018-03 No Notes: Memori a 0.833 MG/ML 1-16 (Same as: :00: Duoneb) [place] Ipratropium 00 [place] 0.167 MG/ML Inhalant Solution Albuterol 2018-03 No Notes: Memori a 0.833 MG/ML 1-16 (Same as: :00: Duoneb) [place] Ipratropium 00 [place] 0.167 MG/ML Inhalant Solution Albuterol 2018-03 No Notes: Memori a 0.833 MG/ML 1-16 (Same as: :00: Duoneb) [place] Ipratropium 00 [place] 0.167 MG/ML Inhalant Solution Albuterol 2018-03 No Notes: Memori a 0.833 MG/ML 1-16 (Same as: :00: Duoneb) [place] Ipratropium 00 [place] 0.167 MG/ML Inhalant Solution Dextrose 2018-03 No 12.5 gm, Memor ia 50% Syringe 1-16 25 mL, l 00:56: Route: [place] 00 IVP, Drug Form: INJ, Dosing Weight 93.636, kg, PRN, PRN Blood Glucose Results, Start date: 01/16/19 18:56:00 [employer]AUT[employer]IAN, Duration: 30 day, Stop date: 02/15/19 18:55:00 M[employer]UARY BEAUTICIAN, 0 Glucagon 2018-03 No 1 mg, Memoria 1-16 Route: IM, l 00:56: Drug form: [place] 00 PDR/INJ, PRN, Dosing Weight 93.636, kg, PRN Blood Glucose Results, Start date: 01/16/19 18:56:00 M[employer] BEAUTICIAN, Duration: 30 day, Stop date: 02/15/19 18:55:00 MORTUARY BEAUTICIAN, 0 Acetaminoph 2018- No Notes: Do Annika emoria en 03-19 not exceed l 00:56: 4 gm/day. Rolando (Same as: Tylenol) Dextrose 2018-03 No 12.5 gm, Memor ia 50% Syringe 1-16 25 mL, l 00:56: Route: [place] 00 IVP, Drug Form: INJ, Dosing Weight 93.636, kg, PRN, PRN Blood Glucose Results, Start date: 01/16/19 18:56:00 M[employer] BEAUTICIAN, Duration: 30 day, Stop date: 02/15/19 18:55:00 MORTUARY BEAUTICIAN, 0 Glucagon 2018- No 1 mg, Memoria 116 Route: IM, l 00:56: Drug form: [place] 00 PDR/INJ, PRN, Dosing Weight 93.636, kg, PRN Blood Glucose Results, Start date: 01/16/19 18:56:00 M[employer]UARY BEAUTICIAN, Duration: 30 day, Stop date: 02/15/19 18:55:00 MORTUARY BEAUTICIAN, 0 Acetaminoph 2018-03 No Notes: Do Annika restreporia en 03-19 not exceed l 00:56: 4 gm/day. [place] 00 (Same as: Tylenol) Dextrose 2018-03 No 12.5 gm, Memor ia 50% Syringe 1-16 25 mL, l 00:56: Route: [place] 00 IVP, Drug Form: INJ, Dosing Weight 93.636, kg, PRN, PRN Blood Glucose Results, Start date: 01/16/19 18:56:00 M[employer]UARY BEAUTICIAN, Duration: 30 day, Stop date: 02/15/19 18:55:00 MORTUARY BEAUTICIAN, 0 Glucagon 2018-03 No 1 mg, Memoria 1-16 Route: IM, l 00:56: Drug form: [place] 00 PDR/INJ, PRN, Dosing Weight 93.636, kg, PRN Blood Glucose Results, Start date: 01/16/19 18:56:00 M[employer]UARY BEAUTICIAN, Duration: 30 day, Stop date: 02/15/19 18:55:00 MORTUARY BEAUTICIAN, 0 Acetaminoph 2018-03 No Notes: Do M emoria en 1-16 not exceed l 00:56: 4 gm/day. [place] 00 (Same as: Tylenol) Dextrose 2018-03 No 12.5 gm, Memor ia 50% Syringe 1-16 25 mL, l 00:56: Route: [place] 00 IVP, Drug Form: INJ, Dosing Weight 93.636, kg, PRN, PRN Blood Glucose Results, Start date: 01/16/19 18:56:00 M[employer]UARY BEAUTICIAN, Duration: 30 day, Stop date: 02/15/19 18:55:00 MORTUARY BEAUTICIAN, 0 Glucagon 2018-03 No 1 mg, Memoria -16 Route: IM, l 00:56: Drug form: [place] 00 PDR/INJ, PRN, Dosing Weight 93.636, kg, PRN Blood Glucose Results, Start date: 01/16/19 18:56:00 M[employer]UARY BEAUTICIAN, Duration: 30 day, Stop date: 02/15/19 18:55:00 MORTUARY BEAUTICIAN, 0 Acetaminoph 2018-03 No Notes: Do M emoria en 1-16 not exceed l 00:56: 4 gm/day. [place] 00 (Same as: Tylenol) Tramadol 2018-03 No Notes: Not Mem oria 1-16 to exceed l 00:03: 400mg/day. [place] 00 (Same As: Ultram) Tramadol 2018-03 No Notes: Not Mem oria 1-16 to exceed l 00:03: 400mg/day. Rol[place] 00 (Same As: Ultram) Tramadol 2018-03 No Notes: Not Mem oria 1-16 to exceed l 00:03: 400mg/day. [place] 00 (Same As: Ultram) Tramadol 2018-03 No Notes: Not Mem oria 1-16 to exceed l 00:03: 400mg/day. [place] 00 (Same As: Ultram) Acetaminoph 2018-03 No Notes: Max Memoria en 1-15 acetaminop l 22:54: hen 4000 [place] 00 mg/day (4 gm/day). (Same as: Tylenol Extra Strength) Acetaminoph 2018-03 No Notes: Max [facility] en 1-15 acetaminop l 22:54: hen 4000 [place] 00 mg/day (4 gm/day). (Same as: Tylenol Extra Strength) Acetaminoph 2018-03 No Notes: Max [facility] en 1-15 acetaminop l 22:54: hen 4000 [place] 00 mg/day (4 gm/day). (Same as: Tylenol Extra Strength) Acetaminoph 2018-03 No Notes: Max [facility] en 1-15 acetaminop l 22:54: hen 4000 [place] 00 mg/day (4 gm/day). (Same as: Tylenol Extra Strength) Albuterol 2018-03 No Notes: Memori a 0.833 MG/ML 1-15 (Same as: l / 21:21: Duoneb) [place] Ipratropium 00 [place] 0.167 MG/ML Inhalant Solution Prednisone 2018-03 No Notes: Memor ia 1-15 Take with l 21:21: food. [place] 00 Albuterol 2018-03 No Notes: Memori a 0.833 MG/ML 1-15 (Same as: l / 21:21: Duoneb) [place] Ipratropium 00 [place] 0.167 MG/ML Inhalant Solution Prednisone 2018-03 No Notes: Memor ia 1-15 Take with l 21:21: food. [place] 00 Albuterol 2018-03 No Notes: Memori a 0.833 MG/ML 1-15 (Same as: l / 21:21: Duoneb) [place] Ipratropium 00 [place] 0.167 MG/ML Inhalant Solution Prednisone 2018-03 No Notes: Memor ia 1-15 Take with l 21:21: food. [place] 00 Albuterol 2018-03 No Notes: Memori a 0.833 MG/ML 1-15 (Same as: l / 21:21: Duoneb) [place] Ipratropium 00 [place] 0.167 MG/ML Inhalant Solution Prednisone 2018-03 No Notes: Memor ia 1-15 Take with l 21:21: food. [place] 00 Saline 2018-03 No Notes: [facility]oria Flush 0.9% 1-15 (Same as: l 20:25: BD [place] 00 Posiflush) Saline 2018-03 No Notes: [facility] Flush 0.9% 1-15 (Same as: l 20:25: BD [place] 00 Posiflush) Saline 2018-03 No Notes: [facility] Flush 0.9% 1-15 (Same as: l 20:25: BD [place] Posiflush) Saline 2018-03 No Notes: [facility] Flush 0.9% 1-15 (Same as: l 20:25: BD [place] Posiflush) baclofen 10 2018-03 2020- No [id number] 10mg Take 1 [facility] mg tablet 12 04-07 tablet by [facility] of 00:00: 00:00 mouth 3 [place] 00 :00 (three) [facility] times [facility] daily. lisinopril 2018-03 2020- No [id number] 5mg Take 1 [facility] 5 mg tablet 03-30 tablet by it y of 00:00: 00:00 mouth [place] 00 :00 daily. [facility] allopurinol 2020- No [id number] 100mg Take 1 [facility] 100 mg 11-19 tablet by it[facility] of tablet 00:00: 00:00 mouth [place] 00 :00 daily. [facility] atorvastati 2020- No [id number] 20mg Take 1 [facility] n 20 mg 08-01 tablet by ity of tablet 00:00: 00:00 mouth at [place] 00 :00 bedtime. [facility] amLODIPine 2020- No [id number] 5mg Take 1 [facility] (NORVASC) 5 08-01 tablet by it y of mg tablet 00:00: 00:00 mouth [place] 00 :00 daily. [facility] methocarbam 2020- No [id number] 500mg Take 1 [facility] ol 500 mg 07-07 tablet by ity of tablet 00:00: 00:00 mouth 3 [place] 00 :00 (three) [facility] times [facility] daily as needed (muscle spasm/pain ). Lancets 2017 Yes [id number] Use as Uni vers Misc 0-04 directed ity of 00:00: [place] 00 [facility] Lancets 2017- Yes [id number] Use as Uni vers Misc 0-04 directed ity of 00:00: [place] 00 [facility] Lancets 2017- Yes [id number] Use as Uni vers Misc 0-04 directed ity of 00:00: [place] 00 [facility] Lancets 2017- Yes [id number] Use as Uni vers Misc 0-04 directed ity of 00:00: [place] 00 [facility] Lancets 2017- Yes [id number] Use as Uni vers Misc 0-04 directed ity of 00:00: [place] 00 [facility] Lancets 2017- Yes [id number] Use as Uni vers Misc 0-04 directed ity of 00:00: [place] [facility] Lancets 2017- Yes [id number] Use as Uni vers Misc 0-04 directed ity of 00:00: [place] [facility] Lancets 2017- Yes [id number] Use as Uni vers Misc 0-04 directed ity of 00:00: [place] [facility] Lancets 2017- Yes [id number] Use as Uni vers Misc 0-04 directed ity of 00:00: [place] [facility] Lancets 2017- Yes [id number] Use as Uni vers Misc 0-04 directed ity of 00:00: [place] [facility] Lancets 2017- Yes [id number] Use as Uni vers Misc 0-04 directed ity of 00:00: [place] [facility] Lancets 2017- Yes [id number] Use as Uni vers Misc 0-04 directed ity of 00:00: [place] [facility] Lancets 2017- Yes [id number] Use as Uni vers Misc 0-04 directed ity of 00:00: [place] [facility] Lancets 2017- Yes [id number] Use as Uni vers Misc 0-04 directed ity of 00:00: [place] [facility] Lancets 2017- Yes [id number] Use as Uni vers Misc 0-04 directed ity of 00:00: [place] [facility] Lancets 2017- Yes [id number] Use as Uni vers Misc 0-04 directed ity of 00:00: [place] [facility] Lancets 2017- Yes [id number] Use as Uni vers Misc 0-04 directed ity of 00:00: [place] [facility] Lancets 2017- Yes [id number] Use as Uni vers Misc 0-04 directed ity of 00:00: [place] [facility] Lancets 2017- Yes [id number] Use as Uni vers Misc 0-04 directed ity of 00:00: [place] [facility] Lancets 2017- Yes [id number] Use as Uni vers Misc 0-04 directed ity of 00:00: [place] [facility] Lancets 2017-1 Yes [id number] Use as Uni vers Misc 0-04 directed ity of 00:00: [place] 00 [facility] Lancets 2017-1 Yes [id number] Use as Uni vers Misc 0-04 directed ity of 00:00: [place] 00 [facility] Lancets 2017-1 Yes [id number] Use as Uni vers Misc 0-04 directed ity of 00:00: [place] 00 [facility] Lancets 2017-1 Yes [id number] Use as Uni vers Misc 0-04 directed ity of 00:00: [place] 00 [facility] Lancets 2017-1 Yes [id number] Use as Uni vers Misc 0-04 directed ity of 00:00: [place] [facility] Lancets 2017-1 Yes [id number] Use as Uni vers Misc 0-04 directed ity of 00:00: [place] [facility] Lancets 2017-1 Yes [id number] Use as Uni vers Misc 0-04 directed ity of 00:00: [place] [facility] Lancets 2017-1 Yes [id number] Use as Uni vers Misc 0-04 directed ity of 00:00: [place] [facility] Lancets 2017-1 Yes [id number] Use as Uni vers Misc 0-04 directed ity of 00:00: [place] [facility] Lancets 2017-1 Yes [id number] Use as Uni vers Misc 0-04 directed ity of 00:00: [place] [facility] Lancets 2017-1 Yes [id number] Use as Uni vers Misc 0-04 directed ity of 00:00: [place] 00 [facility] Lancets 2017-1 Yes [id number] Use as Uni vers Misc 0-04 directed ity of 00:00: [place] [facility] Lancets 2017-1 Yes [id number] Use as Uni vers Misc 0-04 directed ity of 00:00: [place] [facility] Lancets 2017-1 Yes [id number] Use as Uni vers Misc 0-04 directed ity of 00:00: [place] 00 [facility] Lancets 2017-1 Yes [id number] Use as Uni vers Misc 0-04 directed ity of 00:00: [place] 00 [facility] Lancets 2017-1 Yes [id number] Use as Uni vers Misc 0-04 directed ity of 00:00: [place] 00 [facility] Lancets 2017-1 Yes [id number] Use as Uni vers Misc 0-04 directed ity of 00:00: [place] 00 [facility] Lancets 2017-1 Yes [id number] Use as Uni vers Misc 0-04 directed ity of 00:00: [place] 00 [facility] Lancets 2017-1 Yes [id number] Use as Uni vers Misc 0-04 directed ity of 00:00: [place] [facility] Lancets 2017-1 Yes [id number] Use as Uni vers Misc 0-04 directed ity of 00:00: [place] 00 [facility] Lancets 2017-1 Yes [id number] Use as Uni vers Misc 0-04 directed ity of 00:00: [place] [facility] Lancets 2017-1 Yes [id number] Use as Uni vers Misc 0-04 directed ity of 00:00: [place] [facility] Lancets 2017-1 Yes [id number] Use as Uni vers Misc 0-04 directed ity of 00:00: [place] [facility] Lancets 2017-1 Yes [id number] Use as Uni vers Misc 0-04 directed ity of 00:00: [place] [facility] Lancets 2017-1 Yes [id number] Use as Uni vers Misc 0-04 directed ity of 00:00: [place] [facility] Lancets 2017-1 Yes [id number] Use as Uni vers Misc 0-04 directed ity of 00:00: [place] [facility] Lancets 2017-1 Yes [id number] Use as Uni vers Misc 0-04 directed ity of 00:00: [place] [facility] Lancets 2017-1 Yes [id number] Use as Uni vers Misc 0-04 directed ity of 00:00: [place] [facility] Lancets 2017-1 Yes [id number] Use as Uni vers Misc 0-04 directed ity of 00:00: [place] [facility] Lancets 2017-1 Yes [id number] Use as Uni vers Misc 0-04 directed ity of 00:00: [place] 00 [facility] Lancets 2017-1 Yes [id number] Use as Uni vers Misc 0-04 directed ity of 00:00: [place] 00 [facility] Lancets 2017-1 Yes [id number] Use as Uni vers Misc 0-04 directed ity of 00:00: [place] 00 [facility] Lancets 2017-1 Yes [id number] Use as Uni vers Misc 0-04 directed ity of 00:00: [place] 00 [facility] Lancets 2017-1 Yes [id number] Use as Uni vers Misc 0-04 directed ity of 00:00: [place] 00 [facility] Lancets 2017-1 Yes [id number] Use as Uni vers Misc 0-04 directed ity of 00:00: [place] [facility] Lancets 2017-1 Yes [id number] Use as Uni vers Misc 0-04 directed ity of 00:00: [place] 00 [facility] Lancets 2017-1 Yes [id number] Use as Uni vers Misc 0-04 directed ity of 00:00: [place] [facility] Lancets 2017-1 Yes [id number] Use as Uni vers Misc 0-04 directed ity of 00:00: [place] [facility] Lancets 2017-1 Yes [id number] Use as Uni vers Misc 0-04 directed ity of 00:00: [place] [facility] Lancets 2017-1 Yes [id number] Use as Uni vers Misc 0-04 directed ity of 00:00: [place] [facility] Lancets 2017-1 Yes [id number] Use as Uni vers Misc 0-04 directed ity of 00:00: [place] [facility] Lancets 2017-1 Yes [id number] Use as Uni vers Misc 0-04 directed ity of 00:00: [place] [facility] Lancets 2017-1 Yes [id number] Use as Uni vers Misc 0-04 directed ity of 00:00: [place] [facility] Lancets 2017-1 Yes [id number] Use as Uni vers Misc 0-04 directed ity of 00:00: [place] [facility] Lancets 2017-1 Yes [id number] Use as Uni vers Misc 0-04 directed ity of 00:00: [place] [facility] Lancets 2017-1 Yes [id number] Use as Uni vers Misc 0-04 directed ity of 00:00: [place] 00 [facility] Lancets 2017-1 Yes [id number] Use as Uni vers Misc 0-04 directed ity of 00:00: [place] [facility] Lancets 2017-1 Yes [id number] Use as Uni vers Misc 0-04 directed ity of 00:00: [place] [facility] Lancets 2017-1 Yes [id number] Use as Uni vers Misc 0-04 directed ity of 00:00: [place] 00 [facility] Lancets 2017-1 Yes [id number] Use as Uni vers Misc 0-04 directed ity of 00:00: [place] 00 [facility] Lancets 2017-1 Yes [id number] Use as Uni vers Misc 0-04 directed ity of 00:00: [place] 00 [facility] Lancets 2017-1 Yes [id number] Use as Uni vers Misc 0-04 directed ity of 00:00: [place] 00 [facility] Lancets 2017-1 Yes [id number] Use as Uni vers Misc 0-04 directed ity of 00:00: [place] 00 [facility] Lancets 2017-1 Yes [id number] Use as Uni vers Misc 0-04 directed ity of 00:00: [place] 00 [facility] Lancets 2017-1 Yes [id number] Use as Uni vers Misc 0-04 directed ity of 00:00: [place] 00 [facility] Lancets 2017-1 Yes [id number] Use as Uni vers Misc 0-04 directed ity of 00:00: [place] 00 [facility] Lancets 2017-1 Yes [id number] Use as Uni vers Misc 0-04 directed ity of 00:00: [place] 00 [facility] Lancets 2017-1 Yes [id number] Use as Uni vers Misc 0-04 directed ity of 00:00: [place] 00 [facility] Sodium [id number] No 1,000 mL, Memori a Chloride 7-20 Rate: 25 l 0.154 13:42: ml/hr, [place] MEQ/ML 00 Infuse Injectable over: 40 Solution hr, Route: IV, Dosing Weight 89.205 kg, Total Volume: 1,000, Start date: 09/21/15 8:42:00 CDT, Duration: 1 day, Stop date: 09/22/15 8:41:00 CDT Sodium 2015-0 No 1,000 mL, Memori a Chloride 7-20 Rate: 25 l 0.154 13:42: ml/hr, Rolando MEQ/ML 00 Infuse Injectable over: 40 Solution hr, Route: IV, Dosing Weight 89.205 kg, Total Volume: 1,000, Start date: 09/21/15 8:42:00 CDT, Duration: 1 day, Stop date: 09/22/15 8:41:00 CDT Sodium 2016-0 No 1,000 mL, Memori a Chloride 7-20 Rate: 25 l 0.154 13:42: ml/hr, [place] MEQ/ML 00 Infuse Injectable over: 40 Solution hr, Route: IV, Dosing Weight 89.205 kg, Total Volume: 1,000, Start date: 09/21/15 8:42:00 CDT, Duration: 1 day, Stop date: 09/22/15 8:41:00 CDT Sodium 2016-0 No 1,000 mL, Memori a Chloride 7-20 Rate: 25 l 0.154 13:42: ml/hr, [place] MEQ/ML 00 Infuse Injectable over: 40 Solution hr, Route: IV, Dosing Weight 89.205 kg, Total Volume: 1,000, Start date: 09/21/15 8:42:00 CDT, Duration: 1 day, Stop date: 09/22/15 8:41:00 CDT lisinopril 2016-0 Yes 20 mg = 1 Me moria 20 mg oral 5-18 tab, PO, l tablet 13:07: Daily, # Rolanod 00 30 tab, 0 Refill(s) lisinopril 2016-0 Yes 20 mg = 1 Me moria 20 mg oral 5-18 tab, PO, l tablet 13:07: Daily, # Rolando 00 30 tab, 0 Refill(s) lisinopril 2016-0 Yes 20 mg = 1 Me moria 20 mg oral 5-18 tab, PO, l tablet 13:07: Daily, # Rol[place] 00 30 tab, 0 Refill(s) lisinopril 2016-0 Yes 20 mg = 1 Me moria 20 mg oral 5-18 tab, PO, l tablet 13:07: Daily, # [place] 00 30 tab, 0 Refill(s) Immunizations Ordered Filled Immunization Date Status Comments [facility] e Immunization Name Name Influenza Virus 2021-12-06 Completed [facility] Vaccine[facility] [place] [facility] 65+ Influenza Virus 2021-12-06 Completed [facility] Vaccine,quad 00:00:00 [place] [facility] 65+ Influenza Virus 2021-12-06 Completed [facility] Vaccine,quad 00:00:00 [place] [facility] 65+ Influenza Virus 2021-12-06 Completed [facility] of Vaccine,quad 00:00:00 [place] [facility] 65+ Influenza Virus 2021-12-06 Completed [facility] Vaccine,quad 00:00:00 [place] [facility] 65+ Influenza Virus 2021-12-06 Completed [facility] Vaccine,quad 00:00:00 [place] [facility] 65+ Influenza Virus 2021-12-06 Completed [facility] Vaccine,quad 00:00:00 [place] [facility] 65+ Influenza Virus 2021-12-06 Completed [facility] Vaccine,quad 00:00:00 [place] [facility] 65+ Influenza Virus 2021-12-06 Completed [facility] Vaccine,quad 00:00:00 [place] [facility] 65+ Influenza Virus 2021-12-06 Completed [facility] Vaccine,quad 00:00:00 [place] [facility] 65+ Influenza Virus 2021-12-06 Completed [facility] Vaccine,quad 00:00:00 [place] [facility] 65+ Influenza Virus 2021-12-06 Completed [facility] of Vaccine,quad 00:00:00 [place] [facility] 65+ Influenza Virus 2021-12-06 Completed [facility] of Vaccine,quad 00:00:00 [place] [facility] 65+ Influenza Virus 2021-12-06 Completed [facility] of Vaccine,quad 00:00:00 [place] [facility] 65+ Influenza Virus 2021-12-06 Completed [facility] of Vaccine,quad 00:00:00 [place] [facility] 65+ Influenza Virus 2021-12-06 Completed [facility] of Vaccine,quad 00:00:00 [place] [facility] 65+ Influenza Virus 2021-12-06 Completed [facility] of Vaccine,quad 00:00:00 [place] [facility] 65+ Influenza Virus 2021-12-06 Completed [facility] Vaccine,quad 00:00:00 [place] [facility] 65+ Influenza Virus 2021-12-06 Completed [facility] Vaccine,quad 00:00:00 [place] [facility] 65+ Influenza Virus 2021-12-06 Completed [facility] Vaccine,quad 00:00:00 [place] [facility] 65+ Influenza Virus 2021-12-06 Completed [facility] of Vaccine,quad 00:00:00 [place] [facility] 65+ Influenza Virus 2021-12-06 Completed [facility] Vaccine,quad 00:00:00 [place] [facility] 65+ Influenza Virus 2021-12-06 Completed [facility] Vaccine,quad 00:00:00 [place] [facility] 65+ Influenza Virus 2021-12-06 Completed [facility] of Vaccine,quad 00:00:00 [place] [facility] 65+ Influenza Virus 2021-12-06 Completed [facility] of Vaccine,quad 00:00:00 [place] [facility] 65+ Influenza Virus 2021-12-06 Completed [facility] of Vaccine,quad 00:00:00 [place] [facility] 65+ Influenza Virus 2021-12-06 Completed [facility] of Vaccine,quad 00:00:00 [place] [facility] 65+ Influenza Virus 2021-12-06 Completed [facility] of Vaccine,quad 00:00:00 [place] [facility] 65+ Influenza Virus 2021-12-06 Completed [facility] of Vaccine,quad 00:00:00 [place] [facility] 65+ Influenza Virus 2021-12-06 Completed [facility] of Vaccine,quad 00:00:00 [place] [facility] 65+ Influenza Virus 2021-12-06 Completed [facility] of Vaccine,quad 00:00:00 [place] [facility] 65+ Influenza Virus 2021-12-06 Completed [facility] of Vaccine,quad 00:00:00 [place] [facility] 65+ Influenza Virus 2021-12-06 Completed [facility] Vaccine,quad 00:00:00 [place] [facility] 65+ Influenza Virus 2021-12-06 Completed [facility] Influenza Virus 2021-12-06 Completed [facility] 00:00[facility]00 [facility] Influenza Virus 2021-12-06 Completed [facility] 00:00:00 [facility]+ Influenza Virus 2021-12-06 Completed [facility] 00:00:00 [facility]+ Influenza Virus 2021-12-06 Completed [facility] 00:00:00 [facility]+ Influenza Virus 2021-12-06 Completed [facility] 00:00:00 [facility]+ Influenza Virus 2021-12-06 Completed [facility] 00:00:00 [facility]+ Influenza Virus 2021-12-06 Completed [facility] 00:00:00 [facility]+ Influenza Virus 2021-12-06 Completed [facility] 00:00:00 [facility]+ Influenza Virus 2021-12-06 Completed [facility] 00:00:00 [facility]+ Influenza Virus 2021-12-06 Completed [facility] 00:00:00 [facility]+ Influenza Virus 2021-12-06 Completed [facility] 00:00:00 [facility]+ Influenza Virus 2021-12-06 Completed [facility] 00:00:00 [facility]+ Influenza Virus 2021-12-06 Completed [facility] 00:00:00 [facility]+ Influenza Virus 2021-12-06 Completed [facility] 00:00:00 [facility]+ Influenza Virus 2021-12-06 Completed [facility] 00:00:00 [facility]+ Influenza Virus 2021-12-06 Completed [facility] 00:00:00 [facility]+ Influenza Virus 2021-12-06 Completed [facility] 00:00:00 [facility]+ Influenza Virus 2021-12-06 Completed [facility] 00:00:00 [facility]+ Influenza Virus 2021-12-06 Completed [facility] 00:00:00 [facility]+ Influenza Virus 2021-12-06 Completed [facility] 00:00:00 [facility]+ Influenza Virus 2021-12-06 Completed [facility] 00:00:00 [facility]+ Influenza Virus 2021-12-06 Completed [facility] 00:00:00 [facility] SARS-COV-2 COVID-19 2020-04-28 Completed [facility] PFIZER VACCINE 00:00:[address] [facility] [place] [place] SARS-COV-2 COVID-19 2020-04-28 Completed [facility] PFIZER VACCINE 00:00:[address] [facility] [place] [place] SARS-COV-2 COVID-19 2020-04-28 Completed [facility] PFIZER VACCINE 00:00:[address] [facility] [place] [place] SARS-COV-2 COVID-19 2020-04-28 Completed [facility] PFIZER VACCINE 00:00:[address] [facility] [place] [place] SARS-COV-2 COVID-19 2020-04-28 Completed [facility] PFIZER VACCINE 00:00:[address] [facility] [place] [place] SARS-COV-2 COVID-19 2020-04-28 Completed [facility] PFIZER VACCINE 00:00:[address] [facility] [place] [place] SARS-COV-2 COVID-19 2020-04-28 Completed [facility] PFIZER VACCINE 00:00:[address] [facility] [place] [place] SARS-COV-2 COVID-19 2020-04-28 Completed [facility] PFIZER VACCINE 00:00:[address] [facility] [place] [place] SARS-COV-2 COVID-19 2020-04-28 Completed [facility] PFIZER VACCINE 00:00:[address] [facility] [place] [place] SARS-COV-2 COVID-19 2020-04-28 Completed [facility] PFIZER VACCINE 00:00:00 [facility] SARS-COV-2 COVID-19 2020-04-28 Completed [facility] PFIZER VACCINE 00:00:00 [facility] SARS-COV-2 COVID-19 2020-04-28 Completed [facility] PFIZER VACCINE 00:00:[address] [facility] [place] [place] SARS-COV-2 COVID-19 2020-04-28 Completed [facility] PFIZER VACCINE 00:00:00 [facility] SARS-COV-2 COVID-19 2020-04-28 Completed [facility] PFIZER VACCINE 00:00:00 [facility] SARS-COV-2 COVID-19 2020-04-28 Completed [facility] PFIZER VACCINE 00:00:00 [facility] SARS-COV-2 COVID-19 2020-04-28 Completed [facility] PFIZER VACCINE 00:00:00 [facility] SARS-COV-2 COVID-19 2020-04-28 Completed [facility] PFIZER VACCINE 00:00:00 [facility] SARS-COV-2 COVID-19 2020-04-28 Completed [facility] PFIZER VACCINE 00:00:00 [facility] SARS-COV-2 COVID-19 2020-04-28 Completed [facility] PFIZER VACCINE 00:00:00 [facility] SARS-COV-2 COVID-19 2020-04-28 Completed [facility] PFIZER VACCINE 00:00:[address] [facility] [place] [place] SARS-COV-2 COVID-19 2020-04-28 Completed [facility] PFIZER VACCINE 00:00:00 [facility] SARS-COV-2 COVID-19 2020-04-28 Completed [facility] PFIZER VACCINE 00:00:00 [facility] SARS-COV-2 COVID-19 2020-04-28 Completed [facility] PFIZER VACCINE 00:00:00 [facility] SARS-COV-2 COVID-19 2020-04-28 Completed [facility] PFIZER VACCINE 00:00:[address] [facility] [place] [place] SARS-COV-2 COVID-19 2020-04-28 Completed [facility] PFIZER VACCINE 00:00:[address] [facility] [place] [place] SARS-COV-2 COVID-19 2020-04-28 Completed [facility] PFIZER VACCINE 00:00:00 [facility] SARS-COV-2 COVID-19 2020-04-28 Completed [facility] PFIZER VACCINE 00:00:00 [facility] SARS-COV-2 COVID-19 2020-04-28 Completed [facility] PFIZER VACCINE 00:00:00 [facility] SARS-COV-2 COVID-19 2020-04-28 Completed [facility] PFIZER VACCINE 00:00:00 [facility] SARS-COV-2 COVID-19 2020-04-28 Completed [facility] PFIZER VACCINE 00:00:00 [facility] SARS-COV-2 COVID-19 2020-04-28 Completed [facility] PFIZER VACCINE 00:00:00 [facility] SARS-COV-2 COVID-19 2020-04-28 Completed [facility] PFIZER VACCINE 00:00:00 [facility] SARS-COV-2 COVID-19 2020-04-28 Completed [facility] PFIZER VACCINE 00:00:00 [facility] SARS-COV-2 COVID-19 2020-04-28 Completed [facility] PFIZER VACCINE 00:00:00 [facility] SARS-COV-2 COVID-19 2020-04-28 Completed [facility] PFIZER VACCINE 00:00:00 [facility] SARS-COV-2 COVID-19 2020-04-28 Completed [facility] PFIZER VACCINE 00:00:00 [facility] SARS-COV-2 COVID-19 2020-04-28 Completed [facility] PFIZER VACCINE 00:00:00 [facility] SARS-COV-2 COVID-19 2020-04-28 Completed [facility] PFIZER VACCINE 00:00:00 [facility] SARS-COV-2 COVID-19 2020-04-28 Completed [facility] PFIZER VACCINE 00:00:00 [facility] SARS-COV-2 COVID-19 2020-04-28 Completed [facility] PFIZER VACCINE 00:00:00 [facility] SARS-COV-2 COVID-19 2020-04-28 Completed [facility] PFIZER VACCINE 00:00:00 [facility] SARS-COV-2 COVID-19 2020-04-28 Completed [facility] PFIZER VACCINE 00:00:00 [facility] SARS-COV-2 COVID-19 2020-04-28 Completed [facility] PFIZER VACCINE 00:00:00 [facility] SARS-COV-2 COVID-19 2020-04-28 Completed [facility] PFIZER VACCINE 00:00:00 [facility] SARS-COV-2 COVID-19 2020-04-28 Completed [facility] PFIZER VACCINE 00:00:00 [facility] SARS-COV-2 COVID-19 2020-04-28 Completed [facility] PFIZER VACCINE 00:00:00 [facility] SARS-COV-2 COVID-19 2020-04-28 Completed [facility] PFIZER VACCINE 00:00:00 [facility] SARS-COV-2 COVID-19 2020-04-28 Completed [facility] PFIZER VACCINE 00:00:00 [facility] SARS-COV-2 COVID-19 2020-04-28 Completed [facility] PFIZER VACCINE 00:00:00 [facility] SARS-COV-2 COVID-19 2020-04-28 Completed [facility] PFIZER VACCINE 00:00:00 [facility] SARS-COV-2 COVID-19 2020-04-28 Completed [facility] PFIZER VACCINE 00:00:00 [facility] SARS-COV-2 COVID-19 2020-04-28 Completed [facility] PFIZER VACCINE 00:00:00 [facility] SARS-COV-2 COVID-19 2020-04-28 Completed [facility] PFIZER VACCINE 00:00:00 [facility] SARS-COV-2 COVID-19 2020-04-28 Completed [facility] PFIZER VACCINE 00:00:00 [facility] SARS-COV-2 COVID-19 2020-04-28 Completed [facility] PFIZER VACCINE 00:00:[address] [facility] [place] [place] SARS-COV-2 COVID-19 2020-04-28 Completed [facility] PFIZER VACCINE 00:00:00 [facility] SARS-COV-2 COVID-19 2020-04-28 Completed [facility] PFIZER VACCINE 00:00:00 [facility] SARS-COV-2 COVID-19 2020-04-28 Completed [facility] PFIZER VACCINE 00:00:00 [facility] SARS-COV-2 COVID-19 2020-04-28 Completed [facility] PFIZER VACCINE 00:00:00 [facility] SARS-COV-2 COVID-19 2020-04-28 Completed [facility] PFIZER VACCINE 00:00:00 [facility] SARS-COV-2 COVID-19 2020-04-28 Completed [facility] PFIZER VACCINE 00:00:00 [facility] SARS-COV-2 COVID-19 2020-04-28 Completed [facility] PFIZER VACCINE 00:00:00 [facility] SARS-COV-2 COVID-19 2020-04-28 Completed [facility] PFIZER VACCINE 00:00:00 [facility] SARS-COV-2 COVID-19 2020-04-28 Completed [facility] PFIZER VACCINE 00:00:00 [facility] SARS-COV-2 COVID-19 2020-04-28 Completed [facility] PFIZER VACCINE 00:00:00 [facility] SARS-COV-2 COVID-19 2020-04-28 Completed [facility] PFIZER VACCINE 00:00:00 [facility] SARS-COV-2 COVID-19 2020-04-28 Completed [facility] PFIZER VACCINE 00:00:00 [facility] SARS-COV-2 COVID-19 2020-04-28 Completed [facility] PFIZER VACCINE 00:00:00 [facility] SARS-COV-2 COVID-19 2020-04-28 Completed [facility] PFIZER VACCINE 00:00:00 [facility] SARS-COV-2 COVID-19 2020-04-28 Completed [facility] PFIZER VACCINE 00:00:00 [facility] SARS-COV-2 COVID-19 2020-04-28 Completed [facility] PFIZER VACCINE 00:00:[address] [facility] [place] [place] SARS-COV-2 COVID-19 2020-04-28 Completed [facility] PFIZER VACCINE 00:00:00 [facility] SARS-COV-2 COVID-19 2020-04-28 Completed [facility] PFIZER VACCINE 00:00:00 [facility] SARS-COV-2 COVID-19 2020-04-28 Completed [facility] PFIZER VACCINE 00:00:00 [facility] SARS-COV-2 COVID-19 2020-04-28 Completed [facility] PFIZER VACCINE 00:00:00 [facility] SARS-COV-2 COVID-19 2020-04-28 Completed [facility] PFIZER VACCINE 00:00:00 [facility] SARS-COV-2 COVID-19 2020-04-28 Completed [facility] PFIZER VACCINE 00:00:00 [facility] SARS-COV-2 COVID-19 2020-04-03 Completed [facility] PFIZER VACCINE 00:00:00 [facility] SARS-COV-2 COVID-19 2020-04-03 Completed [facility] PFIZER VACCINE 00:00:00 [facility] SARS-COV-2 COVID-19 2020-04-03 Completed [facility] PFIZER VACCINE 00:00:00 [facility] SARS-COV-2 COVID-19 2020-04-03 Completed [facility] PFIZER VACCINE 00:00:00 [facility] SARS-COV-2 COVID-19 2020-04-03 Completed [facility] PFIZER VACCINE 00:00:[address] [facility] [place] [place] SARS-COV-2 COVID-19 2020-04-03 Completed [facility] PFIZER VACCINE 00:00:00 [facility] SARS-COV-2 COVID-19 2020-04-03 Completed [facility] PFIZER VACCINE 00:00:00 [facility] SARS-COV-2 COVID-19 2020-04-03 Completed [facility] PFIZER VACCINE 00:00:00 [facility] SARS-COV-2 COVID-19 2020-04-03 Completed [facility] PFIZER VACCINE 00:00:[address] [facility] [place] [place] SARS-COV-2 COVID-19 2020-04-03 Completed [facility] PFIZER VACCINE 00:00:[address] [facility] [place] [place] SARS-COV-2 COVID-19 2020-04-03 Completed [facility] PFIZER VACCINE 00:00:00 [facility] SARS-COV-2 COVID-19 2020-04-03 Completed [facility] PFIZER VACCINE 00:00:00 [facility] SARS-COV-2 COVID-19 2020-04-03 Completed [facility] PFIZER VACCINE 00:00:00 [facility] SARS-COV-2 COVID-19 2020-04-03 Completed [facility] PFIZER VACCINE 00:00:00 [facility] SARS-COV-2 COVID-19 2020-04-03 Completed [facility] PFIZER VACCINE 00:00:00 [facility] SARS-COV-2 COVID-19 2020-04-03 Completed [facility] PFIZER VACCINE 00:00:00 [facility] SARS-COV-2 COVID-19 2020-04-03 Completed [facility] PFIZER VACCINE 00:00:00 [facility] SARS-COV-2 COVID-19 2020-04-03 Completed [facility] PFIZER VACCINE 00:00:00 [facility] SARS-COV-2 COVID-19 2020-04-03 Completed [facility] PFIZER VACCINE 00:00:00 [facility] SARS-COV-2 COVID-19 2020-04-03 Completed [facility] PFIZER VACCINE 00:00:00 [facility] SARS-COV-2 COVID-19 2020-04-03 Completed [facility] PFIZER VACCINE 00:00:00 [facility] SARS-COV-2 COVID-19 2020-04-03 Completed [facility] PFIZER VACCINE 00:00:00 [facility] SARS-COV-2 COVID-19 2020-04-03 Completed [facility] PFIZER VACCINE 00:00:00 [facility] SARS-COV-2 COVID-19 2020-04-03 Completed [facility] PFIZER VACCINE 00:00:00 [facility] SARS-COV-2 COVID-19 2020-04-03 Completed [facility] PFIZER VACCINE 00:00:00 [facility] SARS-COV-2 COVID-19 2020-04-03 Completed [facility] PFIZER VACCINE 00:00:00 [facility] SARS-COV-2 COVID-19 2020-04-03 Completed [facility] PFIZER VACCINE 00:00:00 [facility] SARS-COV-2 COVID-19 2020-04-03 Completed [facility] PFIZER VACCINE 00:00:00 [facility] SARS-COV-2 COVID-19 2020-04-03 Completed [facility] PFIZER VACCINE 00:00:00 [facility] SARS-COV-2 COVID-19 2020-04-03 Completed [facility] PFIZER VACCINE 00:00:00 [facility] SARS-COV-2 COVID-19 2020-04-03 Completed [facility] PFIZER VACCINE 00:00:00 [facility] SARS-COV-2 COVID-19 2020-04-03 Completed [facility] PFIZER VACCINE 00:00:00 [facility] SARS-COV-2 COVID-19 2020-04-03 Completed [facility] PFIZER VACCINE 00:00:00 [facility] SARS-COV-2 COVID-19 2020-04-03 Completed [facility] PFIZER VACCINE 00:00:00 [facility] SARS-COV-2 COVID-19 2020-04-03 Completed [facility] PFIZER VACCINE 00:00:00 [facility] SARS-COV-2 COVID-19 2020-04-03 Completed [facility] PFIZER VACCINE 00:00:00 [facility] SARS-COV-2 COVID-19 2020-04-03 Completed [facility] PFIZER VACCINE 00:00:00 [facility] SARS-COV-2 COVID-19 2020-04-03 Completed [facility] PFIZER VACCINE 00:00:00 [facility] SARS-COV-2 COVID-19 2020-04-03 Completed [facility] PFIZER VACCINE 00:00:00 [facility] SARS-COV-2 COVID-19 2020-04-03 Completed [facility] PFIZER VACCINE 00:00:00 [facility] SARS-COV-2 COVID-19 2020-04-03 Completed [facility] PFIZER VACCINE 00:00:[address] [facility] [place] [place] SARS-COV-2 COVID-19 2020-04-03 Completed [facility] PFIZER VACCINE 00:00:00 [facility] SARS-COV-2 COVID-19 2020-04-03 Completed [facility] PFIZER VACCINE 00:00:00 [facility] SARS-COV-2 COVID-19 2020-04-03 Completed [facility] PFIZER VACCINE 00:00:00 [facility] SARS-COV-2 COVID-19 2020-04-03 Completed [facility] PFIZER VACCINE 00:00:00 [facility] SARS-COV-2 COVID-19 2020-04-03 Completed [facility] PFIZER VACCINE 00:00:00 [facility] SARS-COV-2 COVID-19 2020-04-03 Completed [facility] PFIZER VACCINE 00:00:00 [facility] SARS-COV-2 COVID-19 2020-04-03 Completed [facility] PFIZER VACCINE 00:00:00 [facility] SARS-COV-2 COVID-19 2020-04-03 Completed [facility] PFIZER VACCINE 00:00:00 [facility] SARS-COV-2 COVID-19 2020-04-03 Completed [facility] PFIZER VACCINE 00:00:00 [facility] SARS-COV-2 COVID-19 2020-04-03 Completed [facility] PFIZER VACCINE 00:00:00 [facility] SARS-COV-2 COVID-19 2020-04-03 Completed [facility] PFIZER VACCINE 00:00:00 [facility] SARS-COV-2 COVID-19 2020-04-03 Completed [facility] PFIZER VACCINE 00:00:00 [facility] SARS-COV-2 COVID-19 2020-04-03 Completed [facility] PFIZER VACCINE 00:00:00 [facility] SARS-COV-2 COVID-19 2020-04-03 Completed [facility] PFIZER VACCINE 00:00:00 [facility] SARS-COV-2 COVID-19 2020-04-03 Completed [facility] PFIZER VACCINE 00:00:00 [facility] SARS-COV-2 COVID-19 2020-04-03 Completed [facility] PFIZER VACCINE 00:00:00 [facility] SARS-COV-2 COVID-19 2020-04-03 Completed [facility] PFIZER VACCINE 00:00:00 [facility] SARS-COV-2 COVID-19 2020-04-03 Completed [facility] PFIZER VACCINE 00:00:00 [facility] SARS-COV-2 COVID-19 2020-04-03 Completed [facility] PFIZER VACCINE 00:00:[address] [facility] [place] [place] SARS-COV-2 COVID-19 2020-04-03 Completed [facility] PFIZER VACCINE 00:00:00 [facility] SARS-COV-2 COVID-19 2020-04-03 Completed [facility] PFIZER VACCINE 00:00:00 [facility] SARS-COV-2 COVID-19 2020-04-03 Completed [facility] PFIZER VACCINE 00:00:00 [facility] SARS-COV-2 COVID-19 2020-04-03 Completed [facility] PFIZER VACCINE 00:00:00 [facility] SARS-COV-2 COVID-19 2020-04-03 Completed [facility] PFIZER VACCINE 00:00:00 [facility] SARS-COV-2 COVID-19 2020-04-03 Completed [facility] PFIZER VACCINE 00:00:00 [facility] SARS-COV-2 COVID-19 2020-04-03 Completed [facility] PFIZER VACCINE 00:00:00 [facility] SARS-COV-2 COVID-19 2020-04-03 Completed [facility] PFIZER VACCINE 00:00:[address] [facility] [place] [place] SARS-COV-2 COVID-19 2020-04-03 Completed [facility] PFIZER VACCINE 00:00:00 [facility] SARS-COV-2 COVID-19 2020-04-03 Completed [facility] PFIZER VACCINE 00:00:00 [facility] SARS-COV-2 COVID-19 2020-04-03 Completed [facility] PFIZER VACCINE 00:00:00 [facility] SARS-COV-2 COVID-19 2020-04-03 Completed [facility] PFIZER VACCINE 00:00:[address] [facility] [place] [place] SARS-COV-2 COVID-19 2020-04-03 Completed [facility] PFIZER VACCINE 00:00:[address] [facility] [place] [place] SARS-COV-2 COVID-19 2020-04-03 Completed [facility] PFIZER VACCINE 00:00:[address] [facility] [place] [place] SARS-COV-2 COVID-19 2020-04-03 Completed [facility] PFIZER VACCINE 00:00:[address] [facility] [place] [place] SARS-COV-2 COVID-19 2020-04-03 Completed [facility] PFIZER VACCINE 00:00:[address] [facility] [place] [place] SARS-COV-2 COVID-19 2020-04-03 Completed [facility] PFIZER VACCINE 00:00:[address] [facility] [place] [place] Influenza High Dose 2019-11-24 Completed [facility] 00:00:00 [facility] [place] Influenza Virus 2019-11-24 Completed [facility] Vaccine 00:00:00 [facility] [place] Influenza High Dose 2019-11-24 Completed [facility] 00:00:00 [facility] [place] Influenza Virus 2019-11-24 Completed [facility] Vaccine 00:00:00 [facility] [place] Influenza High Dose 2019-11-24 Completed [facility] 00:00:00 [facility] [place] Influenza Virus 2019-11-24 Completed [facility] Vaccine 00:00:00 [facility] [place] Influenza High Dose 2019-11-24 Completed [facility] 00:00:00 [facility] [place] Influenza Virus 2019-11-24 Completed [facility] Vaccine 00:00:00 [facility] [place] Influenza High Dose 2019-11-24 Completed [facility] 00:00:00 [facility] [place] Influenza Virus 2019-11-24 Completed [facility] Vaccine 00:00:00 [facility] [place] Influenza High Dose 2019-11-24 Completed [facility] 00:00:00 [facility] [place] Influenza Virus 2019-11-24 Completed [facility] Vaccine 00:00:00 [facility] [place] Influenza High Dose 2019-11-24 Completed [facility] 00:00:00 [facility] [place] Influenza Virus 2019-11-24 Completed [facility] Vaccine 00:00:00 [facility] [place] Influenza High Dose 2019-11-24 Completed [facility] 00:00:00 [facility] [place] Influenza Virus 2019-11-24 Completed [facility] Vaccine 00:00:00 [facility] [place] Influenza High Dose 2019-11-24 Completed [facility] 00:00:00 [facility] [place] Influenza Virus 2019-11-24 Completed [facility] Vaccine 00:00:00 [facility] [place] Influenza High Dose 2019-11-24 Completed [facility] 00:00:00 [facility] [place] Influenza Virus 2019-11-24 Completed [facility] Vaccine 00:00:00 [facility] [place] Influenza High Dose 2019-11-24 Completed [facility] 00:00:00 [facility] [place] Influenza Virus 2019-11-24 Completed [facility] Vaccine 00:00:00 [facility] [place] Influenza High Dose 2019-11-24 Completed [facility] 00:00:00 [facility] [place] Influenza Virus 2019-11-24 Completed [facility] Vaccine 00:00:00 [facility] [place] Influenza High Dose 2019-11-24 Completed [facility] 00:00:00 [facility] [place] Influenza Virus 2019-11-24 Completed [facility] Vaccine 00:00:00 [facility] [place] Influenza High Dose 2019-11-24 Completed [facility] 00:00:00 [facility] [place] Influenza Virus 2019-11-24 Completed [facility] Vaccine 00:00:00 [facility] [place] Influenza High Dose 2019-11-24 Completed [facility] 00[facility]00:00 [facility] [place] Influenza Virus 2019-11-24 Completed [facility] Vaccine 00:00:00 [facility] [place] Influenza High Dose 2019-11-24 Completed [facility] 00:00:00 [facility] [place] Influenza Virus 2019-11-24 Completed [facility] Vaccine 00:00:00 [facility] [place] Influenza High Dose 2019-11-24 Completed [facility] 00:00:00 [facility] [place] Influenza Virus 2019-11-24 Completed [facility] Vaccine 00:00:00 [facility] [place] Influenza High Dose 2019-11-24 Completed [facility] 00:00:00 [facility] [place] Influenza Virus 2019-11-24 Completed [facility] Vaccine 00:00:00 [facility] [place] Influenza High Dose 2019-11-24 Completed [facility] 00:00:00 [facility] [place] Influenza Virus 2019-11-24 Completed [facility] Vaccine 00:00:00 [facility] [place] Influenza High Dose 2019-11-24 Completed [facility] 00:00:00 [facility] [place] Influenza Virus 2019-11-24 Completed [facility] Vaccine 00:00:00 [facility] Influenza High Dose 2019-11-24 Completed [facility] 00:00:00 [facility] [place] Influenza Virus 2019-11-24 Completed [facility] Vaccine 00:00:00 [facility] [place] Influenza High Dose 2019-11-24 Completed [facility] 00:00:00 [facility] [place] Influenza Virus 2019-11-24 Completed [facility] of Vaccine 00:00:00 [facility] [place] Influenza High Dose 2019-11-24 Completed [facility] 00:00:00 [facility] [place] Influenza Virus 2019-11-24 Completed [facility] Vaccine 00:00:00 [facility] [place] Influenza High Dose 2019-11-24 Completed [facility] 00:00:00 [facility] [place] Influenza Virus 2019-11-24 Completed [facility] Vaccine 00:00:00 [facility] [place] Influenza High Dose 2019-11-24 Completed [facility] 00:00:00 [facility] [place] Influenza Virus 2019-11-24 Completed [facility] Vaccine 00:00:00 [facility] [place] Influenza High Dose 2019-11-24 Completed [facility] 00:00:00 [facility] [place] Influenza Virus 2019-11-24 Completed [facility] Vaccine 00:00:00 [facility] [place] Influenza High Dose 2019-11-24 Completed [facility] 00:00:00 [facility] [place] Influenza Virus 2019-11-24 Completed [facility] Vaccine 00:00:00 [facility] [place] Influenza High Dose 2019-11-24 Completed [facility] 00:00:00 [facility] [place] Influenza Virus 2019-11-24 Completed [facility] Vaccine 00:00:00 [facility] [place] Influenza High Dose 2019-11-24 Completed [facility] 00:00:00 [facility] [place] Influenza Virus 2019-11-24 Completed [facility] Vaccine 00:00:00 [facility] [place] Influenza High Dose 2019-11-24 Completed [facility] 00:00:00 [facility] [place] Influenza Virus 2019-11-24 Completed [facility] Vaccine 00:00:00 [facility] [place] Influenza High Dose 2019-11-24 Completed [facility] 00:00:00 [facility] [place] Influenza Virus 2019-11-24 Completed [facility] Vaccine 00:00:00 [facility] [place] Influenza High Dose 2019-11-24 Completed [facility] 00:00:00 [facility] [place] Influenza Virus 2019-11-24 Completed [facility] Vaccine 00:00:00 [facility] [place] Influenza High Dose 2019-11-24 Completed [facility] 00:00:00 [facility] [place] Influenza Virus 2019-11-24 Completed [facility] Vaccine 00:00:00 [facility] [place] Influenza High Dose 2019-11-24 Completed [facility] 00:00:00 [facility] [place] Influenza Virus 2019-11-24 Completed [facility] Vaccine 00:00:00 [facility] [place] Influenza High Dose 2019-11-24 Completed [facility] 00:00:00 [facility] [place] Influenza Virus 2019-11-24 Completed [facility] Vaccine 00:00:00 [facility] [place] Influenza High Dose 2019-11-24 Completed [facility] 00:00:00 [facility] [place] Influenza Virus 2019-11-24 Completed [facility] Vaccine 00:00:00 [facility] [place] Influenza High Dose 2019-11-24 Completed [facility] 00:00:00 [facility] [place] Influenza Virus 2019-11-24 Completed [facility] Vaccine 00:00:00 [facility] [place] Influenza High Dose 2019-11-24 Completed [facility] 00:00:00 [facility] [place] Influenza Virus 2019-11-24 Completed [facility] Vaccine 00:00:00 [facility] [place] Influenza High Dose 2019-11-24 Completed [facility] 00:00:00 [facility] [place] Influenza Virus 2019-11-24 Completed [facility] Vaccine 00:00:00 [facility] [place] Influenza High Dose 2019-11-24 Completed [facility] 00:00:00 [facility] [place] Influenza Virus 2019-11-24 Completed [facility] Vaccine 00:00:00 [facility] [place] Influenza High Dose 2019-11-24 Completed [facility] 00:00:00 [facility] [place] Influenza Virus 2019-11-24 Completed [facility] Vaccine 00:00:00 [facility] [place] Influenza High Dose 2019-11-24 Completed [facility] 00:00:00 [facility] [place] Influenza Virus 2019-11-24 Completed [facility] Vaccine 00:00:00 [facility] [place] Influenza High Dose 2019-11-24 Completed [facility] 00:00:00 [facility] [place] Influenza Virus 2019-11-24 Completed [facility] Vaccine 00:00:00 [facility] [place] Influenza High Dose 2019-11-24 Completed [facility] 00:00:00 [facility] [place] Influenza Virus 2019-11-24 Completed [facility] Vaccine 00:00:00 [facility] [place] Influenza High Dose 2019-11-24 Completed [facility] 00:00:00 [facility] [place] Influenza Virus 2019-11-24 Completed [facility] Vaccine 00:00:00 [facility] [place] Influenza High Dose 2019-11-24 Completed [facility] 00:00:00 [facility] [place] Influenza Virus 2019-11-24 Completed [facility] Vaccine 00:00:00 [facility] [place] Influenza High Dose 2019-11-24 Completed [facility] 00:00:00 [facility] [place] Influenza Virus 2019-11-24 Completed [facility] Vaccine 00:00:00 [facility] [place] Influenza High Dose 2019-11-24 Completed [facility] 00:00:00 [facility] [place] Influenza Virus 2019-11-24 Completed [facility] Vaccine 00:00:00 [facility] [place] Influenza High Dose 2019-11-24 Completed [facility] 00:00:00 [facility] [place] Influenza Virus 2019-11-24 Completed [facility] Vaccine 00:00:00 [facility] [place] Influenza High Dose 2019-11-24 Completed [facility] 00:00:00 [facility] [place] Influenza Virus 2019-11-24 Completed [facility] Vaccine 00:00:00 [facility] [place] Influenza High Dose 2019-11-24 Completed [facility] 00:00:00 [facility] [place] Influenza Virus 2019-11-24 Completed [facility] Vaccine 00:00:00 [facility] [place] Influenza High Dose 2019-11-24 Completed [facility] 00:00:00 [facility] [place] Influenza Virus 2019-11-24 Completed [facility] Vaccine 00:00:00 [facility] [place] Influenza High Dose 2019-11-24 Completed [facility] 00:00:00 [facility] [place] Influenza Virus 2019-11-24 Completed [facility] Vaccine 00:00:00 [facility] [place] Influenza High Dose 2019-11-24 Completed [facility] 00:00:00 [facility] [place] Influenza Virus 2019-11-24 Completed [facility] Vaccine 00:00:00 [facility] [place] Influenza High Dose 2019-11-24 Completed [facility] 00:00:00 [facility] [place] Influenza Virus 2019-11-24 Completed [facility] Vaccine 00:00:00 [facility] [place] Influenza High Dose 2019-11-24 Completed [facility] 00:00:00 [facility] [place] Influenza Virus 2019-11-24 Completed [facility] Vaccine 00:00:00 [facility] [place] Influenza High Dose 2019-11-24 Completed [facility] 00:00:00 [facility] [place] Influenza Virus 2019-11-24 Completed [facility] Vaccine 00:00:00 [facility] [place] Influenza High Dose 2019-11-24 Completed [facility] 00:00:00 [facility] [place] Influenza Virus 2019-11-24 Completed [facility] Vaccine 00:00:00 [facility] [place] Influenza High Dose 2019-11-24 Completed [facility] 00:00:00 [facility] [place] Influenza Virus 2019-11-24 Completed [facility] Vaccine 00:00:00 [facility] [place] Influenza High Dose 2019-11-24 Completed [facility] 00:00:00 [facility] [place] Influenza Virus 2019-11-24 Completed [facility] Vaccine 00:00:00 [facility] [place] Influenza High Dose 2019-11-24 Completed [facility] 00:00:00 [facility] [place] Influenza Virus 2019-11-24 Completed [facility] Vaccine 00:00:00 [facility] [place] Influenza High Dose 2019-11-24 Completed [facility] 00:00:00 [facility] [place] Influenza Virus 2019-11-24 Completed [facility] Vaccine 00:00:00 [facility] [place] Influenza High Dose 2019-11-24 Completed [facility] 00:00:00 [facility] [place] Influenza Virus 2019-11-24 Completed [facility] Vaccine 00:00:00 [facility] [place] Influenza High Dose 2019-11-24 Completed [facility] 00:00:00 [facility] [place] Influenza Virus 2019-11-24 Completed [facility] Vaccine 00:00:00 [facility] [place] Influenza High Dose 2019-11-24 Completed [facility] 00:00:00 [facility] [place] Influenza Virus 2019-11-24 Completed [facility] Vaccine 00:00:00 [facility] [place] Influenza High Dose 2019-11-24 Completed [facility] 00:00:00 [facility] [place] Influenza Virus 2019-11-24 Completed [facility] Vaccine 00:00:00 [facility] [place] Influenza High Dose 2019-11-24 Completed [facility] 00:00:00 [facility] [place] Influenza Virus 2019-11-24 Completed [facility] Vaccine 00:00:00 [facility] [place] Influenza High Dose 2019-11-24 Completed [facility] 00:00:00 [facility] [place] Influenza Virus 2019-11-24 Completed [facility] Vaccine 00:00:00 [facility] [place] Influenza High Dose 2019-11-24 Completed [facility] 00:00:00 [facility] [place] Influenza Virus 2019-11-24 Completed [facility] Vaccine 00:00:00 [facility] [place] Influenza High Dose 2019-11-24 Completed [facility] 00:00:00 [facility] [place] Influenza Virus 2019-11-24 Completed [facility] Vaccine 00:00:00 [facility] [place] Influenza High Dose 2019-11-24 Completed [facility] 00:00:00 [facility] [place] Influenza Virus 2019-11-24 Completed [facility] Vaccine 00:00:00 [facility] [place] Influenza High Dose 2019-11-24 Completed [facility] 00:00:00 [facility] [place] Influenza Virus 2019-11-24 Completed [facility] Vaccine 00:00:00 [facility] [place] Influenza High Dose 2019-11-24 Completed [facility] 00:00:00 [facility] [place] Influenza Virus 2019-11-24 Completed [facility] Vaccine 00:00:00 [facility] [place] Influenza High Dose 2019-11-24 Completed [facility] 00:00:00 [facility] [place] Influenza Virus 2019-11-24 Completed [facility] Vaccine 00:00:00 [facility] [place] Influenza High Dose 2019-11-24 Completed [facility] 00:00:00 [facility] [place] Influenza Virus 2019-11-24 Completed [facility] Vaccine 00:00:00 [facility] [place] Influenza High Dose 2019-11-24 Completed [facility] 00:00:00 [facility] [place] Influenza Virus 2019-11-24 Completed [facility] Vaccine 00:00:00 [facility] [place] Influenza High Dose 2019-11-24 Completed [facility] 00:00:00 [facility] [place] Influenza Virus 2019-11-24 Completed [facility] Vaccine 00:00:00 [facility] [place] Influenza High Dose 2019-01-20 Completed [facility] of 00:00:00 [facility] [place] Influenza High Dose 2019-01-20 Completed [facility] of 00:00:00 [facility] [place] Influenza High Dose 2019-01-20 Completed [facility] of 00:00:00 [facility] [place] Influenza High Dose 2019-01-20 Completed [facility] of 00:00:00 [facility] [place] Influenza High Dose 2019-01-20 Completed [facility] of 00:00:00 [facility] [place] Influenza High Dose 2019-01-20 Completed [facility] of 00:00:00 [facility] [place] Influenza High Dose 2019-01-20 Completed [facility] of 00:00:00 [facility] [place] Influenza High Dose 2019-01-20 Completed [facility] of 00:00:00 [facility] [place] Influenza High Dose 2019-01-20 Completed [facility] of 00:00:00 [facility] [place] Influenza High Dose 2019-01-20 Completed [facility] of 00:00:00 [facility] [place] Influenza High Dose 2019-01-20 Completed [facility] of 00:00:00 [facility] [place] Influenza High Dose 2019-01-20 Completed [facility] of 00:00:00 [facility] [place] Influenza High Dose 2019-01-20 Completed [facility] of 00:00:00 [facility] [place] Influenza High Dose 2019-01-20 Completed [facility] of 00:00:00 [facility] [place] Influenza High Dose 2019-01-20 Completed [facility] of 00:00:00 [facility] [place] Influenza High Dose 2019-01-20 Completed [facility] of 00:00:00 [facility] [place] Influenza High Dose 2019-01-20 Completed [facility] of 00:00:00 [facility] [place] Influenza High Dose 2019-01-20 Completed [facility] of 00:00:00 [facility] [place] Influenza High Dose 2019-01-20 Completed [facility] of 00:00:00 [facility] [place] Influenza High Dose 2019-01-20 Completed [facility] of 00:00:00 [facility] [place] Influenza High Dose 2019-01-20 Completed [facility] of 00:00:00 [facility] [place] Influenza High Dose 2019-01-20 Completed [facility] of 00:00:00 [facility] [place] Influenza High Dose 2019-01-20 Completed [facility] of 00:00:00 [facility] [place] Influenza High Dose 2019-01-20 Completed [facility] of 00:00:00 [facility] [place] Influenza High Dose 2019-01-20 Completed [facility] of 00:00:00 [facility] [place] Influenza High Dose 2019-01-20 Completed [facility] of 00:00:00 [facility] [place] Influenza High Dose 2019-01-20 Completed [facility] of 00:00:00 [facility] [place] Influenza High Dose 2019-01-20 Completed [facility] of 00:00:00 [facility] [place] Influenza High Dose 2019-01-20 Completed [facility] of 00:00:00 [facility] [place] Influenza High Dose 2019-01-20 Completed [facility] of 00:00:00 [facility] [place] Influenza High Dose 2019-01-20 Completed [facility] of 00:00:00 [facility] [place] Influenza High Dose 2019-01-20 Completed [facility] of 00:00:00 [facility] [place] Influenza High Dose 2019-01-20 Completed [facility] of 00:00:00 [facility] [place] Influenza High Dose 2019-01-20 Completed [facility] of 00:00:00 [facility] [place] Influenza High Dose 2019-01-20 Completed [facility] of 00:00:00 [facility] [place] Influenza High Dose 2019-01-20 Completed [facility] of 00:00:00 [facility] [place] Influenza High Dose 2019-01-20 Completed [facility] of 00:00:00 [facility] [place] Influenza High Dose 2019-01-20 Completed [facility] of 00:00:00 [facility] [place] Influenza High Dose 2019-01-20 Completed [facility] of 00:00:00 [facility] [place] Influenza High Dose 2019-01-20 Completed [facility] of 00:00:00 [facility] [place] Influenza High Dose 2019-01-20 Completed [facility] of 00:00:00 [facility] [place] Influenza High Dose 2019-01-20 Completed [facility] of 00:00:00 [facility] [place] Influenza High Dose 2019-01-20 Completed [facility] of 00:00:00 [facility] [place] Influenza High Dose 2019-01-20 Completed [facility] of 00:00:00 [facility] [place] Influenza High Dose 2019-01-20 Completed [facility] of 00:00:00 [facility] [place] Influenza High Dose 2019-01-20 Completed [facility] of 00:00:00 [facility] [place] Influenza High Dose 2019-01-20 Completed [facility] of 00:00:00 [facility] [place] Influenza High Dose 2019-01-20 Completed [facility] of 00:00:00 [facility] [place] Influenza High Dose 2019-01-20 Completed [facility] of 00:00:00 [facility] [place] Influenza High Dose 2019-01-20 Completed [facility] of 00:00:00 [facility] [place] Influenza High Dose 2019-01-20 Completed [facility] of 00:00:00 [facility] [place] Influenza High Dose 2019-01-20 Completed [facility] of 00:00:00 [facility] [place] Influenza High Dose 2019-01-20 Completed [facility] of 00:00:00 [facility] [place] Influenza High Dose 2019-01-20 Completed [facility] of 00:00:00 [facility] [place] Influenza High Dose 2019-01-20 Completed [facility] of 00:00:00 [facility] [place] Influenza High Dose 2019-01-20 Completed [facility] of 00:00:00 [facility] [place] Influenza High Dose 2019-01-20 Completed [facility] of 00:00:00 [facility] [place] Influenza High Dose 2019-01-20 Completed [facility] of 00:00:00 [facility] [place] Influenza High Dose 2019-01-20 Completed [facility] of 00:00:00 [facility] [place] Influenza High Dose 2019-01-20 Completed [facility] of 00:00:00 [facility] [place] Influenza High Dose 2019-01-20 Completed [facility] of 00:00:00 [facility] [place] Influenza High Dose 2019-01-20 Completed [facility] of 00:00:00 [facility] [place] Influenza High Dose 2019-01-20 Completed [facility] of 00:00:00 [facility] [place] Influenza High Dose 2019-01-20 Completed [facility] of 00:00:00 [facility] [place] Influenza High Dose 2019-01-20 Completed [facility] of 00:00:00 [facility] [place] Influenza High Dose 2019-01-20 Completed [facility] of 00:00:00 [facility] [place] Influenza High Dose 2019-01-20 Completed [facility] of 00:00:00 [facility] [place] Influenza High Dose 2019-01-20 Completed [facility] of 00:00:00 [facility] [place] Influenza High Dose 2019-01-20 Completed [facility] of 00:00:00 [facility] [place] Influenza High Dose 2019-01-20 Completed [facility] of 00:00:00 [facility] [place] Influenza High Dose 2019-01-20 Completed [facility] of 00:00:00 [facility] [place] Influenza High Dose 2019-01-20 Completed [facility] of 00:00:00 [facility] [place] Influenza High Dose 2019-01-20 Completed [facility] of 00:00:00 [facility] [place] Influenza High Dose 2019-01-20 Completed [facility] of 00:00:00 [facility] [place] Influenza High Dose 2019-01-20 Completed [facility] of 00:00:00 [facility] [place] Influenza High Dose 2019-01-20 Completed [facility] of 00:00:00 [facility] [place] Influenza High Dose 2019-01-20 Completed [facility] of 00:00:00 [facility] [place] Influenza High Dose 2019-01-20 Completed [facility] of 00:00:00 [facility] [place] Influenza High Dose 2018-05-08 Completed [facility] of 00:00:00 [facility] [place] Pneumococcal 2018-05-08 Completed [facility] f Polysaccharide, 00:00:00 [place] [facility] PPSV23 (PNEUMOVAX) [facility] Influenza High Dose 2018-05-08 Completed [facility] of 00:00:00 [facility] [place] Pneumococcal 2018-05-08 Completed [facility] f Polysaccharide, 00:00:00 [place] [facility] PPSV23 (PNEUMOVAX) Branch Influenza High Dose 2018-05-08 Completed [facility] of 00:00:00 [facility] [place] Pneumococcal 2018-05-08 Completed [facility] o f Polysaccharide, 00:00:00 [place] [facility] PPSV23 (PNEUMOVAX) Branch Influenza High Dose 2018-05-08 Completed [facility] of 00:00:00 [facility] [place] Pneumococcal 2018-05-08 Completed [facility] o f Polysaccharide, 00:00:00 [place] [facility] PPSV23 (PNEUMOVAX) Branch Influenza High Dose 2018-05-08 Completed [facility] of 00:00:00 [facility] [place] Pneumococcal 2018-05-08 Completed [facility] f Polysaccharide, 00:00:00 [place] [facility] PPSV23 (PNEUMOVAX) Branch Influenza High Dose 2018-05-08 Completed [facility] of 00:00:00 [facility] [place] Pneumococcal 2018-05-08 Completed [facility] f Polysaccharide, 00:00:00 [place] [facility] PPSV23 (PNEUMOVAX) Branch Influenza High Dose 2018-05-08 Completed [facility] of 00:00:00 [facility] [place] Pneumococcal 2018-05-08 Completed [facility] f Polysaccharide, 00:00:00 [place] [facility] PPSV23 (PNEUMOVAX) Branch Influenza High Dose 2018-05-08 Completed [facility] of 00:00:00 [facility] [place] Pneumococcal 2018-05-08 Completed [facility] f Polysaccharide, 00:00:00 [place] [facility] PPSV23 (PNEUMOVAX) Branch Influenza High Dose 2018-05-08 Completed [facility] of 00:00:00 [facility] [place] Pneumococcal 2018-05-08 Completed [facility] f Polysaccharide, 00:00:00 [place] [facility] PPSV23 (PNEUMOVAX) Branch Influenza High Dose 2018-05-08 Completed [facility] of 00:00:00 [facility] [place] Pneumococcal 2018-05-08 Completed [facility] f Polysaccharide, 00:00:00 [place] [facility] PPSV23 (PNEUMOVAX) Branch Influenza High Dose 2018-05-08 Completed [facility] of 00:00:00 [facility] [place] Pneumococcal 2018-05-08 Completed [facility] f Polysaccharide, 00:00:00 [place] [facility] PPSV23 (PNEUMOVAX) Branch Influenza High Dose 2018-05-08 Completed [facility] 00:00:00 [facility] [place] Pneumococcal 2018-05-08 Completed [facility] f Polysaccharide, 00:00:00 [place] [facility] PPSV23 (PNEUMOVAX) Branch Influenza High Dose 2018-05-08 Completed [facility] of 00:00:00 [facility] [place] Pneumococcal 2018-05-08 Completed [facility] f Polysaccharide, 00:00:00 [place] [facility] PPSV23 (PNEUMOVAX) Branch Influenza High Dose 2018-05-08 Completed [facility] of 00:00:00 [facility] [place] Pneumococcal 2018-05-08 Completed [facility] f Polysaccharide, 00:00:00 [place] [facility] PPSV23 (PNEUMOVAX) Branch Influenza High Dose 2018-05-08 Completed [facility] of 00:00:00 [facility] [place] Pneumococcal 2018-05-08 Completed [facility] f Polysaccharide, 00:00:00 [place] [facility] PPSV23 (PNEUMOVAX) Branch Influenza High Dose 2018-05-08 Completed [facility] of 00:00:00 [facility] [place] Pneumococcal 2018-05-08 Completed [facility] f Polysaccharide, 00:00:00 [place] [facility] PPSV23 (PNEUMOVAX) Branch Influenza High Dose 2018-05-08 Completed [facility] of 00:00:00 [facility] [place] Pneumococcal 2018-05-08 Completed [facility] f Polysaccharide, 00:00:00 [place] [facility] PPSV23 (PNEUMOVAX) Branch Influenza High Dose 2018-05-08 Completed [facility] of 00:00:00 [facility] [place] Pneumococcal 2018-05-08 Completed [facility] f Polysaccharide, 00:00:00 [place] [facility] PPSV23 (PNEUMOVAX) Branch Influenza High Dose 2018-05-08 Completed [facility] of 00:00:00 [facility] [place] Pneumococcal 2018-05-08 Completed [facility] o f Polysaccharide, 00:00:00 [place] [facility] PPSV23 (PNEUMOVAX) Branch Influenza High Dose 2018-05-08 Completed [facility] of 00:00:00 [facility] [place] Pneumococcal 2018-05-08 Completed [facility] o f Polysaccharide, 00:00:00 [place] [facility] PPSV23 (PNEUMOVAX) Branch Influenza High Dose 2018-05-08 Completed [facility] of 00:00:00 [facility] [place] Pneumococcal 2018-05-08 Completed [facility] o f Polysaccharide, 00:00:00 [place] [facility] PPSV23 (PNEUMOVAX) Branch Influenza High Dose 2018-05-08 Completed [facility] of 00:00:00 [facility] [place] Pneumococcal 2018-05-08 Completed [facility] o f Polysaccharide, 00:00:00 [place] [facility] PPSV23 (PNEUMOVAX) Branch Influenza High Dose 2018-05-08 Completed [facility] 00:00:00 [facility] [place] Pneumococcal 2018-05-08 Completed [facility] o f Polysaccharide, 00:00:00 [place] [facility] PPSV23 (PNEUMOVAX) Branch Influenza High Dose 2018-05-08 Completed [facility] of 00:00:00 [facility] [place] Pneumococcal 2018-05-08 Completed [facility] o f Polysaccharide, 00:00:00 [place] [facility] PPSV23 (PNEUMOVAX) Branch Influenza High Dose 2018-05-08 Completed [facility] of 00:00:00 [facility] [place] Pneumococcal 2018-05-08 Completed [facility] o f Polysaccharide, 00:00:00 [place] [facility] PPSV23 (PNEUMOVAX) Branch Influenza High Dose 2018-05-08 Completed [facility] of 00:00:00 [facility] [place] Pneumococcal 2018-05-08 Completed [facility] o f Polysaccharide, 00:00:00 [place] [facility] PPSV23 (PNEUMOVAX) Branch Influenza High Dose 2018-05-08 Completed [facility] of 00:00:00 [facility] [place] Pneumococcal 2018-05-08 Completed [facility] o f Polysaccharide, 00:00:00 [place] [facility] PPSV23 (PNEUMOVAX) Branch Influenza High Dose 2018-05-08 Completed [facility] 00:00:00 [facility] [place] Pneumococcal 2018-05-08 Completed [facility] o f Polysaccharide, 00:00:00 [place] [facility] PPSV23 (PNEUMOVAX) Branch Influenza High Dose 2018-05-08 Completed [facility] 00:00:00 [facility] [place] Pneumococcal 2018-05-08 Completed [facility] o f Polysaccharide, 00:00:00 [place] [facility] PPSV23 (PNEUMOVAX) Branch Influenza High Dose 2018-05-08 Completed [facility] 00:00:00 [facility] [place] Pneumococcal 2018-05-08 Completed [facility] Pol[facility], 00:00:00 [place] [facility] PPSV23 (PNEUMOVAX) Branch Influenza High Dose 2018-05-08 Completed [facility] 00:00:00 [facility] [place] Pneumococcal 2018-05-08 Completed [facility] Polysaccharide, 00:00:00 [place] [facility] PPSV23 (PNEUMOVAX) Branch Influenza High Dose 2018-05-08 Completed [facility] 00:00:00 [facility] [place] Pneumococcal 2018-05-08 Completed [facility] Polysaccharide, 00:00:00 [place] [facility] PPSV23 (PNEUMOVAX) Branch Influenza High Dose 2018-05-08 Completed [facility] 00:00:00 [facility] [place] Pneumococcal 2018-05-08 Completed [facility] Polysaccharide, 00:00:00 [place] [facility] PPSV23 (PNEUMOVAX) Branch Influenza High Dose 2018-05-08 Completed [facility] 00:00:00 [facility] [place] Pneumococcal 2018-05-08 Completed [facility] Polysaccharide, 00:00:00 [place] [facility] PPSV23 (PNEUMOVAX) Branch Influenza High Dose 2018-05-08 Completed [facility] 00:00:00 [facility] [place] Pneumococcal 2018-05-08 Completed [facility] Polysaccharide, 00:00:00 [place] [facility] PPSV23 (PNEUMOVAX) Branch Influenza High Dose 2018-05-08 Completed [facility] 00:00:00 [facility] [place] Pneumococcal 2018-05-08 Completed [facility] Polysaccharide, 00:00:00 [place] [facility] PPSV23 (PNEUMOVAX) Branch Influenza High Dose 2018-05-08 Completed [facility] 00:00:00 [facility] [place] Pneumococcal 2018-05-08 Completed [facility] Polysaccharide, 00:00:00 [place] [facility] PPSV23 (PNEUMOVAX) Branch Influenza High Dose 2018-05-08 Completed [facility] 00:00:00 [facility] [place] Pneumococcal 2018-05-08 Completed [facility] Polysaccharide, 00:00:00 [place] [facility] PPSV23 (PNEUMOVAX) Branch Influenza High Dose 2018-05-08 Completed [facility] 00:00:00 [facility] [place] Pneumococcal 2018-05-08 Completed [facility] Polysaccharide, 00:00:00 [place] [facility] PPSV23 (PNEUMOVAX) Branch Influenza High Dose 2018-05-08 Completed [facility] 00:00:00 [facility] [place] Pneumococcal 2018-05-08 Completed [facility] Polysaccharide, 00:00:00 [place] [facility] PPSV23 (PNEUMOVAX) Branch Influenza High Dose 2018-05-08 Completed [facility] 00:00:00 [facility] [place] Pneumococcal 2018-05-08 Completed [facility] Polysaccharide, 00:00:00 [place] [facility] PPSV23 (PNEUMOVAX) Branch Influenza High Dose 2018-05-08 Completed [facility] 00:00:00 [facility] [place] Pneumococcal 2018-05-08 Completed [facility] Polysaccharide, 00:00:00 [place] [facility] PPSV23 (PNEUMOVAX) Branch Influenza High Dose 2018-05-08 Completed [facility] 00:00:00 [facility] [place] Pneumococcal 2018-05-08 Completed [facility] Polysaccharide, 00:00:00 [place] [facility] PPSV23 (PNEUMOVAX) Branch Influenza High Dose 2018-05-08 Completed [facility] 00:00:00 [facility] [place] Pneumococcal 2018-05-08 Completed [facility] Polysaccharide, 00:00:00 [place] [facility] PPSV23 (PNEUMOVAX) Branch Influenza High Dose 2018-05-08 Completed [facility] 00:00:00 [facility] [place] Pneumococcal 2018-05-08 Completed [facility] Polysaccharide, 00:00:00 [place] [facility] PPSV23 (PNEUMOVAX) Branch Influenza High Dose 2018-05-08 Completed [facility] 00:00:00 [facility] [place] Pneumococcal 2018-05-08 Completed [facility] Polysaccharide, 00:00:00 [place] [facility] PPSV23 (PNEUMOVAX) Branch Influenza High Dose 2018-05-08 Completed [facility] 00:00:00 [facility] [place] Pneumococcal 2018-05-08 Completed [facility] Polysaccharide, 00:00:00 [place] [facility] PPSV23 (PNEUMOVAX) Branch Influenza High Dose 2018-05-08 Completed [facility] 00:00:00 [facility] [place] Pneumococcal 2018-05-08 Completed [facility] Polysaccharide, 00:00:00 [place] [facility] PPSV23 (PNEUMOVAX) Branch Influenza High Dose 2018-05-08 Completed [facility] 00:00:00 [facility] [place] Pneumococcal 2018-05-08 Completed [facility] Polysaccharide, 00:00:00 [place] [facility] PPSV23 (PNEUMOVAX) Branch Influenza High Dose 2018-05-08 Completed [facility] 00:00:00 [facility] [place] Pneumococcal 2018-05-08 Completed [facility] Polysaccharide, 00:00:00 [place] [facility] PPSV23 (PNEUMOVAX) Branch Influenza High Dose 2018-05-08 Completed [facility] 00:00:00 [facility] [place] Pneumococcal 2018-05-08 Completed [facility] Polysaccharide, 00:00:00 [place] [facility] PPSV23 (PNEUMOVAX) Branch Influenza High Dose 2018-05-08 Completed [facility] 00:00:00 [facility] [place] Pneumococcal 2018-05-08 Completed [facility] Polysaccharide, 00:00:00 [place] [facility] PPSV23 (PNEUMOVAX) Branch Influenza High Dose 2018-05-08 Completed [facility] 00:00:00 [facility] [place] Pneumococcal 2018-05-08 Completed [facility] Polysaccharide, 00:00:00 [place] [facility] PPSV23 (PNEUMOVAX) Branch Influenza High Dose 2018-05-08 Completed [facility] 00:00:00 [facility] [place] Pneumococcal 2018-05-08 Completed [facility] Polysaccharide, 00:00:00 [place] [facility] PPSV23 (PNEUMOVAX) Branch Influenza High Dose 2018-05-08 Completed [facility] 00:00:00 [facility] [place] Pneumococcal 2018-05-08 Completed [facility] Polysaccharide, 00:00:00 [place] [facility] PPSV23 (PNEUMOVAX) Branch Influenza High Dose 2018-05-08 Completed [facility] 00:00:00 [facility] [place] Pneumococcal 2018-05-08 Completed [facility] Polysaccharide, 00:00:00 [place] [facility] PPSV23 (PNEUMOVAX) Branch Influenza High Dose 2018-05-08 Completed [facility] 00:00:00 [facility] [place] Pneumococcal 2018-05-08 Completed [facility] Polysaccharide, 00:00:00 [place] [facility] PPSV23 (PNEUMOVAX) Branch Influenza High Dose 2018-05-08 Completed [facility] 00:00:00 [facility] [place] Pneumococcal 2018-05-08 Completed [facility] Polysaccharide, 00:00:00 [place] [facility] PPSV23 (PNEUMOVAX) Branch Influenza High Dose 2018-05-08 Completed [facility] 00:00:00 [facility] [place] Pneumococcal 2018-05-08 Completed [facility] Polysaccharide, 00:00:00 [place] [facility] PPSV23 (PNEUMOVAX) Branch Influenza High Dose 2018-05-08 Completed [facility] 00:00:00 [facility] [place] Pneumococcal 2018-05-08 Completed [facility] Polysaccharide, 00:00:00 [place] [facility] PPSV23 (PNEUMOVAX) Branch Influenza High Dose 2018-05-08 Completed [facility] 00:00:00 [facility] [place] Pneumococcal 2018-05-08 Completed [facility] Polysaccharide, 00:00:00 [place] [facility] PPSV23 (PNEUMOVAX) Branch Influenza High Dose 2018-05-08 Completed [facility] 00:00:00 [facility] [place] Pneumococcal 2018-05-08 Completed [facility] Polysaccharide, 00:00:00 [place] [facility] PPSV23 (PNEUMOVAX) Branch Influenza High Dose 2018-05-08 Completed [facility] 00:00:00 [facility] [place] Pneumococcal 2018-05-08 Completed [facility] Polysaccharide, 00:00:00 [place] [facility] PPSV23 (PNEUMOVAX) Branch Influenza High Dose 2018-05-08 Completed [facility] 00:00:00 [facility] [place] Pneumococcal 2018-05-08 Completed [facility] Polysaccharide, 00:00:00 [place] [facility] PPSV23 (PNEUMOVAX) Branch Influenza High Dose 2018-05-08 Completed [facility] 00:00:00 [facility] [place] Pneumococcal 2018-05-08 Completed [facility] Polysaccharide, 00:00:00 [place] [facility] PPSV23 (PNEUMOVAX) Branch Influenza High Dose 2018-05-08 Completed [facility] 00:00:00 [facility] [place] Pneumococcal 2018-05-08 Completed [facility] Polysaccharide, 00:00:00 [place] [facility] PPSV23 (PNEUMOVAX) Branch Influenza High Dose 2018-05-08 Completed [facility] 00:00:00 [facility] [place] Pneumococcal 2018-05-08 Completed [facility] Polysaccharide, 00:00:00 [place] [facility] PPSV23 (PNEUMOVAX) Branch Influenza High Dose 2018-05-08 Completed [facility] 00:00:00 [facility] [place] Pneumococcal 2018-05-08 Completed [facility] Polysaccharide, 00:00:00 [place] [facility] PPSV23 (PNEUMOVAX) Branch Influenza High Dose 2018-05-08 Completed [facility] 00:00:00 [facility] [place] Pneumococcal 2018-05-08 Completed [facility] Polysaccharide, 00:00:00 [place] [facility] PPSV23 (PNEUMOVAX) Branch Influenza High Dose 2018-05-08 Completed [facility] 00:00:00 [facility] [place] Pneumococcal 2018-05-08 Completed [facility] Polysaccharide, 00:00:00 [place] [facility] PPSV23 (PNEUMOVAX) Branch Influenza High Dose 2018-05-08 Completed [facility] 00:00:00 [facility] [place] Pneumococcal 2018-05-08 Completed [facility] Polysaccharide, 00:00:00 [place] [facility] PPSV23 (PNEUMOVAX) Branch Influenza High Dose 2018-05-08 Completed [facility] 00:00:00 [facility] [place] Pneumococcal 2018-05-08 Completed [facility] Polysaccharide, 00:00:00 [place] [facility] PPSV23 (PNEUMOVAX) Branch Influenza High Dose 2018-05-08 Completed [facility] 00:00:00 [facility] [place] Pneumococcal 2018-05-08 Completed [facility] Polysaccharide, 00:00:00 [place] [facility] PPSV23 (PNEUMOVAX) Branch Influenza High Dose 2018-05-08 Completed [facility] 00:00:00 [facility] [place] Pneumococcal 2018-05-08 Completed [facility] Polysaccharide, 00:00:00 [place] [facility] PPSV23 (PNEUMOVAX) Branch Influenza High Dose 2018-05-08 Completed [facility] 00:00:00 [facility] [place] Pneumococcal 2018-05-08 Completed [facility] Polysaccharide, 00:00:00 [place] [facility] PPSV23 (PNEUMOVAX) Branch Influenza High Dose 2018-05-08 Completed [facility] 00:00:00 [facility] [place] Pneumococcal 2018-05-08 Completed [facility] Polysaccharide, 00:00:00 [place] [facility] PPSV23 (PNEUMOVAX) Branch Influenza High Dose 2018-05-08 Completed [facility] 00:00:00 [facility] [place] Pneumococcal 2018-05-08 Completed [facility] Polysaccharide, 00:00:00 [place] [facility] PPSV23 (PNEUMOVAX) Branch Influenza High Dose 2018-05-08 Completed [facility] 00:00:00 [facility] [place] Pneumococcal 2018-05-08 Completed [facility] Polysaccharide, 00:00:00 [place] [facility] PPSV23 (PNEUMOVAX) Branch Pneumococcal 13 2016-12-05 Completed [facility] of Conjugate, PCV13 00:00:00 [facility] dical (Prevnar 13) Branch Influenza High Dose 2016-12-05 Completed [facility] of 00:00:00 [facility] [place] Pneumococcal 13 2016-12-05 Completed [facility] of Conjugate, PCV13 00:00:00 [facility] dical (Prevnar 13) Branch Influenza High Dose 2016-12-05 Completed [facility] of 00:00:00 [facility] [place] Pneumococcal 13 2016-12-05 Completed [facility] Conjugate, PCV13 00:00:00 [place] [facility] (Prevnar 13) Branch Influenza High Dose 2016-12-05 Completed [facility] of 00:00:00 [facility] [place] Pneumococcal 13 2016-12-05 Completed [facility] Conjugate, PCV13 00:00:00 [place] [facility] (Prevnar 13) Branch Influenza High Dose 2016-12-05 Completed [facility] 00:00:00 [facility] [place] Pneumococcal 13 2016-12-05 Completed [facility] Conjugate, PCV13 00:00:00 [place] [facility] (Prevnar 13) Branch Influenza High Dose 2016-12-05 Completed [facility] of 00:00:00 [facility] [place] Pneumococcal 13 2016-12-05 Completed [facility] Conjugate, PCV13 00:00:00 [place] [facility] (Prevnar 13) Branch Influenza High Dose 2016-12-05 Completed [facility] of 00:00:00 [facility] [place] Pneumococcal 13 2016-12-05 Completed [facility] of Conjugate, PCV13 00:00:00 [place] [facility] (Prevnar 13) Branch Influenza High Dose 2016-12-05 Completed [facility] of 00:00:00 [facility] [place] Pneumococcal 13 2016-12-05 Completed [facility] of Conjugate, PCV13 00:00:00 [place] [facility] (Prevnar 13) Branch Influenza High Dose 2016-12-05 Completed [facility] of 00:00:00 [facility] [place] Pneumococcal 13 2016-12-05 Completed [facility] of Conjugate, PCV13 00:00:00 [place] [facility] (Prevnar 13) Branch Influenza High Dose 2016-12-05 Completed [facility] of 00:00:00 [facility] [place] Pneumococcal 13 2016-12-05 Completed [facility] of Conjugate, PCV13 00:00:00 [place] [facility] (Prevnar 13) Branch Influenza High Dose 2016-12-05 Completed [facility] of 00:00:00 [facility] [place] Pneumococcal 13 2016-12-05 Completed [facility] of Conjugate, PCV13 00:00:00 [place] [facility] (Prevnar 13) Branch Influenza High Dose 2016-12-05 Completed [facility] of 00:00:00 [facility] [place] Pneumococcal 13 2016-12-05 Completed [facility] of Conjugate, PCV13 00:00:00 [place] [facility] (Prevnar 13) Branch Influenza High Dose 2016-12-05 Completed [facility] of 00:00:00 [facility] [place] Pneumococcal 13 2016-12-05 Completed [facility] of Conjugate, PCV13 00:00:00 [place] [facility] (Prevnar 13) Branch Influenza High Dose 2016-12-05 Completed [facility] of 00:00:00 [facility] [place] Pneumococcal 13 2016-12-05 Completed [facility] Conjugate, PCV13 00:00:00 [place] [facility] (Prevnar 13) Branch Influenza High Dose 2016-12-05 Completed [facility] of 00:00:00 [facility] Pneumococcal 13 2016-12-05 Completed [facility] of Conjugate, PCV13 00:00:00 [place] [facility] (Prevnar 13) Branch Influenza High Dose 2016-12-05 Completed [facility] of 00:00:00 [facility] Pneumococcal 13 2016-12-05 Completed [facility] of Conjugate, PCV13 00:00:00 [place] [facility] (Prevnar 13) Branch Influenza High Dose 2016-12-05 Completed [facility] of 00:00:00 [facility] Pneumococcal 13 2016-12-05 Completed [facility] of Conjugate, PCV13 00:00:00 [place] [facility] (Prevnar 13) Branch Influenza High Dose 2016-12-05 Completed [facility] of 00:00:00 [facility] Pneumococcal 13 2016-12-05 Completed [facility] Conjugate, PCV13 00:00:00 [place] [facility] (Prevnar 13) Branch Influenza High Dose 2016-12-05 Completed [facility] of 00:00:00 [facility] Pneumococcal 13 2016-12-05 Completed [facility] of Conjugate, PCV13 00:00:00 [place] [facility] (Prevnar 13) Branch Influenza High Dose 2016-12-05 Completed [facility] of 00:00:00 [facility] Pneumococcal 13 2016-12-05 Completed [facility] of Conjugate, PCV13 00:00:00 [place] [facility] (Prevnar 13) Branch Influenza High Dose 2016-12-05 Completed [facility] of 00:00:00 [facility] Pneumococcal 13 2016-12-05 Completed [facility] of Conjugate, PCV13 00:00:00 [place] [facility] (Prevnar 13) Branch Influenza High Dose 2016-12-05 Completed [facility] of 00:00:00 [facility] Pneumococcal 13 2016-12-05 Completed [facility] Conjugate, PCV13 00:00:00 [place] [facility] (Prevnar 13) Branch Influenza High Dose 2016-12-05 Completed [facility] of 00:00:00 [facility] Pneumococcal 13 2016-12-05 Completed [facility] of Conjugate, PCV13 00:00:00 [place] [facility] (Prevnar 13) Branch Influenza High Dose 2016-12-05 Completed [facility] of 00:00:00 [facility] [place] Pneumococcal 13 2016-12-05 Completed [facility] of Conjugate, PCV13 00:00:00 [place] [facility] (Prevnar 13) Branch Influenza High Dose 2016-12-05 Completed [facility] of 00:00:00 [facility] Pneumococcal 13 2016-12-05 Completed [facility] of Conjugate, PCV13 00:00:00 [place] [facility] (Prevnar 13) Branch Influenza High Dose 2016-12-05 Completed [facility] of 00:00:00 [facility] Pneumococcal 13 2016-12-05 Completed [facility] of Conjugate, PCV13 00:00:00 [place] [facility] (Prevnar 13) Branch Influenza High Dose 2016-12-05 Completed [facility] of 00:00:00 [facility] [place] Pneumococcal 13 2016-12-05 Completed [facility] of Conjugate, PCV13 00:00:00 [place] [facility] (Prevnar 13) Branch Influenza High Dose 2016-12-05 Completed [facility] of 00:00:00 [facility] [place] Pneumococcal 13 2016-12-05 Completed [facility] of Conjugate, PCV13 00:00:00 [place] [facility] (Prevnar 13) Branch Influenza High Dose 2016-12-05 Completed [facility] of 00:00:00 [facility] [place] Pneumococcal 13 2016-12-05 Completed [facility] of Conjugate, PCV13 00:00:00 [place] [facility] (Prevnar 13) Branch Influenza High Dose 2016-12-05 Completed [facility] of 00:00:00 [facility] [place] Pneumococcal 13 2016-12-05 Completed [facility] of Conjugate, PCV13 00:00:00 [place] [facility] (Prevnar 13) Branch Influenza High Dose 2016-12-05 Completed [facility] of 00:00:00 [facility] [place] Pneumococcal 13 2016-12-05 Completed [facility] of Conjugate, PCV13 00:00:00 [place] [facility] (Prevnar 13) Branch Influenza High Dose 2016-12-05 Completed [facility] of 00:00:00 [facility] [place] Pneumococcal 13 2016-12-05 Completed [facility] of Conjugate, PCV13 00:00:00 [place] [facility] (Prevnar 13) Branch Influenza High Dose 2016-12-05 Completed [facility] of 00:00:00 [facility] [place] Pneumococcal 13 2016-12-05 Completed [facility] of Conjugate, PCV13 00:00:00 [place] [facility] (Prevnar 13) Branch Influenza High Dose 2016-12-05 Completed [facility] of 00:00:00 [facility] Pneumococcal 13 2016-12-05 Completed [facility] of Conjugate, PCV13 00:00:00 [place] [facility] (Prevnar 13) Branch Influenza High Dose 2016-12-05 Completed [facility] of 00:00:00 [facility] Pneumococcal 13 2016-12-05 Completed [facility] of Conjugate, PCV13 00:00:00 [place] [facility] (Prevnar 13) Branch Influenza High Dose 2016-12-05 Completed [facility] of 00:00:00 [facility] Pneumococcal 13 2016-12-05 Completed [facility] of Conjugate, PCV13 00:00:00 [place] [facility] (Prevnar 13) Branch Influenza High Dose 2016-12-05 Completed [facility] of 00:00:00 [facility] Pneumococcal 13 2016-12-05 Completed [facility] of Conjugate, PCV13 00:00:00 [place] [facility] (Prevnar 13) Branch Influenza High Dose 2016-12-05 Completed [facility] of 00:00:00 [facility] [place] Pneumococcal 13 2016-12-05 Completed [facility] of Conjugate, PCV13 00:00:00 [place] [facility] (Prevnar 13) Branch Influenza High Dose 2016-12-05 Completed [facility] of 00:00:00 [facility] [place] Pneumococcal 13 2016-12-05 Completed [facility] of Conjugate, PCV13 00:00:00 [place] [facility] (Prevnar 13) Branch Influenza High Dose 2016-12-05 Completed [facility] of 00:00:00 [facility] [place] Pneumococcal 13 2016-12-05 Completed [facility] of Conjugate, PCV13 00:00:00 [place] [facility] (Prevnar 13) Branch Influenza High Dose 2016-12-05 Completed [facility] of 00:00:00 [facility] Pneumococcal 13 2016-12-05 Completed [facility] of Conjugate, PCV13 00:00:00 [place] [facility] (Prevnar 13) Branch Influenza High Dose 2016-12-05 Completed [facility]ity of 00:00:00 [facility] Pneumococcal 13 2016-12-05 Completed [facility] of Conjugate, PCV13 00:00:00 [place] [facility] (Prevnar 13) Branch Influenza High Dose 2016-12-05 Completed [facility] 00:00:00 [place] [facility] Pneumococcal 13 2016-12-05 Completed [facility] of Conjugate, PCV13 00:00:00 [place] [facility] (Prevnar 13) Branch Influenza High Dose 2016-12-05 Completed [facility] of 00:00:00 [facility] Pneumococcal 13 2016-12-05 Completed [facility] of Conjugate, PCV13 00:00:00 [place] [facility] (Prevnar 13) Branch Influenza High Dose 2016-12-05 Completed [facility] of 00:00:00 [facility] Pneumococcal 13 2016-12-05 Completed [facility] of Conjugate, PCV13 00:00:00 [place] [facility] (Prevnar 13) Branch Influenza High Dose 2016-12-05 Completed [facility] of 00:00:00 [facility] Pneumococcal 13 2016-12-05 Completed [facility] of Conjugate, PCV13 00:00:00 [place] [facility] (Prevnar 13) Branch Influenza High Dose 2016-12-05 Completed [facility] of 00:00:00 [facility] Pneumococcal 13 2016-12-05 Completed [facility] of Conjugate, PCV13 00:00:00 [place] [facility] (Prevnar 13) Branch Influenza High Dose 2016-12-05 Completed [facility] of 00:00:00 [facility] [place] Pneumococcal 13 2016-12-05 Completed [facility] of Conjugate, PCV13 00:00:00 [place] [facility] (Prevnar 13) Branch Influenza High Dose 2016-12-05 Completed [facility] of 00:00:00 [facility] [place] Pneumococcal 13 2016-12-05 Completed [facility] of Conjugate, PCV13 00:00:00 [place] [facility] (Prevnar 13) Branch Influenza High Dose 2016-12-05 Completed [facility] of 00:00:00 [facility] [place] Pneumococcal 13 2016-12-05 Completed [facility] of Conjugate, PCV13 00:00:00 [place] [facility] (Prevnar 13) Branch Influenza High Dose 2016-12-05 Completed [facility] of 00:00:00 [facility] [place] Pneumococcal 13 2016-12-05 Completed [facility] of Conjugate, PCV13 00:00:00 [place] [facility] (Prevnar 13) Branch Influenza High Dose 2016-12-05 Completed [facility] of 00:00:00 [facility] [place] Pneumococcal 13 2016-12-05 Completed [facility] of Conjugate, PCV13 00:00:00 [place] [facility] (Prevnar 13) Branch Influenza High Dose 2016-12-05 Completed [facility] of 00:00:00 [facility] Pneumococcal 13 2016-12-05 Completed [facility] of Conjugate, PCV13 00:00:00 [place] [facility] (Prevnar 13) Branch Influenza High Dose 2016-12-05 Completed [facility] of 00:00:00 [facility] Pneumococcal 13 2016-12-05 Completed [facility] of Conjugate, PCV13 00:00:00 [place] [facility] (Prevnar 13) Branch Influenza High Dose 2016-12-05 Completed [facility] of 00:00:00 [facility] Pneumococcal 13 2016-12-05 Completed [facility] of Conjugate, PCV13 00:00:00 [place] [facility] (Prevnar 13) Branch Influenza High Dose 2016-12-05 Completed [facility]ity of 00:00:00 [facility] Pneumococcal 13 2016-12-05 Completed [facility] of Conjugate, PCV13 00:00:00 [place] [facility] (Prevnar 13) Branch Influenza High Dose 2016-12-05 Completed [facility] of 00:00:00 [facility] [place] Pneumococcal 13 2016-12-05 Completed [facility] of Conjugate, PCV13 00:00:00 [place] [facility] (Prevnar 13) Branch Influenza High Dose 2016-12-05 Completed [facility] of 00:00:00 [facility] [place] Pneumococcal 13 2016-12-05 Completed [facility] of Conjugate, PCV13 00:00:00 [place] [facility] (Prevnar 13) Branch Influenza High Dose 2016-12-05 Completed [facility] of 00:00:00 [facility] [place] Pneumococcal 13 2016-12-05 Completed [facility] of Conjugate, PCV13 00:00:00 [place] [facility] (Prevnar 13) Branch Influenza High Dose 2016-12-05 Completed [facility] of 00:00:00 [facility] [place] Pneumococcal 13 2016-12-05 Completed [facility] of Conjugate, PCV13 00:00:00 [place] [facility] (Prevnar 13) Branch Influenza High Dose 2016-12-05 Completed [facility] of 00:00:00 [facility] [place] Pneumococcal 13 2016-12-05 Completed [facility] of Conjugate, PCV13 00:00:00 [place] [facility] (Prevnar 13) Branch Influenza High Dose 2016-12-05 Completed [facility] of 00:00:00 [facility] [place] Pneumococcal 13 2016-12-05 Completed [facility] of Conjugate, PCV13 00:00:00 [place] [facility] (Prevnar 13) Branch Influenza High Dose 2016-12-05 Completed [facility] of 00:00:00 [facility] [place] Pneumococcal 13 2016-12-05 Completed [facility] of Conjugate, PCV13 00:00:00 [place] [facility] (Prevnar 13) Branch Influenza High Dose 2016-12-05 Completed [facility] of 00:00:00 [facility] [place] Pneumococcal 13 2016-12-05 Completed [facility] of Conjugate, PCV13 00:00:00 [place] [facility] (Prevnar 13) Branch Influenza High Dose 2016-12-05 Completed [facility] of 00:00:00 [facility] [place] Pneumococcal 13 2016-12-05 Completed [facility] of Conjugate, PCV13 00:00:00 [place] [facility] (Prevnar 13) Branch Influenza High Dose 2016-12-05 Completed [facility] of 00:00:00 [facility] [place] Pneumococcal 13 2016-12-05 Completed [facility] of Conjugate, PCV13 00:00:00 [place] [facility] (Prevnar 13) Branch Influenza High Dose 2016-12-05 Completed Unive rsity of 00:00:00 [facility] [place] Pneumococcal 13 2016-12-05 Completed Universit y of Conjugate, PCV13 00:00:00 [place] [facility] [place] (Prevnar 13) Branch Influenza High Dose 2016-12-05 Completed Unive rsity of 00:00:00 [facility] [place] Pneumococcal 13 2016-12-05 Completed Universit y of Conjugate, PCV13 00:00:00 [place] [facility] (Prevnar 13) Branch Influenza High Dose 2016-12-05 Completed Unive rsity of 00:00:00 [facility] [place] Pneumococcal 13 2016-12-05 Completed Universit y of Conjugate, PCV13 00:00:00 [place] [facility] (Prevnar 13) Branch Influenza High Dose 2016-12-05 Completed Unive rsity of 00:00:00 [facility] [place] Pneumococcal 13 2016-12-05 Completed Universit y of Conjugate, PCV13 00:00:00 [place] [facility] (Prevnar 13) Branch Influenza High Dose 2016-12-05 Completed Unive rsity of 00:00:00 [facility] [place] Pneumococcal 13 2016-12-05 Completed Universit y of Conjugate, PCV13 00:00:00 [place] [facility] (Prevnar 13) Branch Influenza High Dose 2016-12-05 Completed Unive rsity of 00:00:00 [facility] [place] Pneumococcal 13 2016-12-05 Completed Universit y of Conjugate, PCV13 00:00:00 [place] [facility] (Prevnar 13) Branch Influenza High Dose 2016-12-05 Completed Unive rsity of 00:00:00 [facility] [place] Pneumococcal 13 2016-12-05 Completed Universit y of Conjugate, PCV13 00:00:00 [place] [facility] (Prevnar 13) Branch Influenza High Dose 2016-12-05 Completed Unive rsity of 00:00:00 [facility] [place] Pneumococcal 13 2016-12-05 Completed Universit y of Conjugate, PCV13 00:00:00 [place] [facility] (Prevnar 13) Branch Influenza High Dose 2016-12-05 Completed Unive rsity of 00:00:00 [facility] [place] Pneumococcal 13 2016-12-05 Completed Universit y of Conjugate, PCV13 00:00:00 [place] [facility] (Prevnar 13) Branch Influenza High Dose 2016-12-05 Completed Unive rsity of 00:00:00 [facility] [place] Pneumococcal 13 2016-12-05 Completed Universit y of Conjugate, PCV13 00:00:00 [place] [facility] (Prevnar 13) Branch Influenza High Dose 2016-12-05 Completed Unive rsity of 00:00:00 [facility] [place] Pneumococcal 13 2016-12-05 Completed Universit y of Conjugate, PCV13 00:00:00 [place] [facility] (Prevnar 13) Branch Influenza High Dose 2016-12-05 Completed Unive rsity of 00:00:00 [facility] [place] Pneumococcal 13 2016-12-05 Completed Universit y of Conjugate, PCV13 00:00:00 [place] [facility] (Prevnar 13) Branch Influenza High Dose 2016-12-05 Completed Unive rsity of 00:00:00 [facility] [place] influenza virus 2015-01-20 Completed [facility] vaccine, 21:59:00 inactivated influenza virus 2015-01-20 Completed [facility] vaccine, 21:59:00 inactivated influenza virus 2015-01-20 [facility], 21:59:00 inactivated influenza virus 2015-01-20 Completed [facility] Rolando vaccine, 21:59:00 inactivated Hx influenza 2012-12-29 Completed [facility] vaccine-unspecified 14:50:54 <sup>1</sup> Hx influenza 2012-12-29 Completed [facility] vaccine-unspecified 14:50:54 <sup>2</sup> Hx influenza 2012-12-29 Completed [facility] vaccine-unspecified 14:50:54 <sup>2</sup> Hx influenza 2012-12-29 Completed [facility] vaccine-unspecified 14:50:54 <sup>1</sup> Hx influenza 2012-12-29 Completed [facility] vaccine-unspecified 14:50:54 <sup>2</sup> Hx influenza 2012-12-29 Completed [facility] vaccine-unspecified 14:50:54 <sup>1</sup> Hx influenza 2012-12-29 Completed [facility] vaccine-unspecified 14:50:54 <sup>2</sup> Hx influenza 2012-12-29 Completed [facility] vaccine-unspecified 14:50:54 <sup>1</sup> influenza virus 2012-12-29 Completed [facility] vaccine, 05:00:00 inactivated<sup>2</ sup> influenza virus 2012-12-29 Completed [facility] vaccine, 05:00:00 inactivated<sup>1</ sup> influenza virus 2012-12-29 Completed [facility] vaccine, 05:00:00 inactivated<sup>1</ sup> influenza virus 2012-12-29 Completed [facility] vaccine, 05:00:00 inactivated<sup>2</ sup> influenza virus 2012-12-29 Completed [facility] vaccine, 05:00:00 inactivated<sup>1</ sup> influenza virus 2012-12-29 Completed [facility] vaccine, 05:00:00 inactivated<sup>2</ sup> influenza virus 2012-12-29 Completed [facility] vaccine, 05:00:00 inactivated<sup>1</ sup> influenza virus 2012-12-29 Completed [facility] vaccine, 05:00:00 inactivated<sup>2</ sup> pneumococcal 2011-11-23 Completed [facility] 23-valent 14:50:54 vaccine<sup>3</sup> pneumococcal 2011-11-23 Completed [facility] 23-valent 14:50:54 vaccine<sup>3</sup> pneumococcal 2011-11-23 Completed [facility] 23-valent 14:50:54 vaccine<sup>3</sup> pneumococcal 2011-11-23 Completed [facility] 23-valent 14:50:54 vaccine<sup>3</sup> Vital Signs Vital Name Observation Time Observation Value Comments Source Systolic blood 2022-04-16 135 mm[Hg] University of pressure 16:11:00 [facility] [place] Diastolic blood 2022-04-16 70 mm[Hg] University o f pressure 16:11:00 [facility] [place] Heart rate 2022-04-16 53 /min University of 16:11:00 [facility] [place] Body temperature 2022-04-16 36.17 Erna University of 16:11:00 [facility] [place] Body height 2022-04-16 182.9 cm University of 16:11:00 [facility] [place] Body weight 2022-04-16 88.179 kg University of 16:11:00 [facility] [place] BMI 2022-04-16 26.37 kg/m2 University of 16:11:00 [facility] [place] Oxygen saturation 2022-04-16 96 /min University of in Arterial blood 16:11:00 [facility] christa by Pulse oximetry Branch Systolic blood 2022-04-12 137 mm[Hg] University of pressure 19:48:00 [facility] [place] Diastolic blood 2022-04-12 78 mm[Hg] University o f pressure 19:48:00 [facility] [place] Heart rate 2022-04-12 72 /min University of 19:48:00 [facility] [place] Body temperature 2022-04-12 36 Erna University of 19:48:00 [facility] [place] Respiratory rate 2022-04-12 18 /min University of 19:48:00 [facility] [place] Body height 2022-04-12 182.9 cm University of 19:48:00 [facility] [place] Body weight 2022-04-12 90.13 kg University of 19:48:00 [facility] [place] BMI 2022-04-12 26.95 kg/m2 University of 19:48:00 [facility] [place] Oxygen saturation 2022-04-12 95 /min University of in Arterial blood 19:48:00 [place] [facility] christa by Pulse oximetry Branch Systolic blood 2022-03-08 182 mm[Hg] University of pressure 22:07:00 [facility] [place] Diastolic blood 2022-03-08 78 mm[Hg] University o f pressure 22:07:00 [facility] [place] Heart rate 2022-03-08 67 /min University of 22:05:00 [facility] [place] Body temperature 2022-03-08 36.28 Erna University of 20:08:00 [facility] [place] Respiratory rate 2022-03-08 18 /min University of 20:08:00 [facility] Branch Body height 2022-03-08 182.9 cm University of 20:08:00 [facility] [place] Body weight 2022-03-08 86.818 kg University of 20:08:00 [facility] [place] BMI 2022-03-08 25.96 kg/m2 University of 20:08:00 [facility] [place] Oxygen saturation 2022-03-08 97 /min University of in Arterial blood 20:08:00 [facility] christa by Pulse oximetry Branch Systolic blood 2022-01-08 188 mm[Hg] University of pressure 16:01:00 [facility] [place] Diastolic blood 2022-01-08 66 mm[Hg] University o f pressure 16:01:00 [facility] [place] Heart rate 2022-01-08 54 /min University of 16:01:00 [facility] [place] Respiratory rate 2022-01-08 19 /min University of 16:01:00 [facility] [place] Body height 2022-01-08 182.9 cm University of 16:01:00 [facility] [place] Body weight 2022-01-08 89.858 kg University of 16:01:00 [facility] [place] BMI 2022-01-08 26.87 kg/m2 University of 16:01:00 [facility] [place] Oxygen saturation 2022-01-08 96 /min University of in Arterial blood 16:01:00 [facility] by Pulse oximetry Branch Systolic blood 2021-12-06 118 mm[Hg] University of pressure 18:30:00 [facility] Diastolic blood 2021-12-06 76 mm[Hg] University o f pressure 18:30:00 [facility] Heart rate 2021-12-06 66 /min University of 18:26:00 [facility] [place] Body temperature 2021-12-06 36.33 Erna University of 18:26:00 [facility] Respiratory rate 2021-12-06 18 /min University of 18:26:00 [facility] Body height 2021-12-06 182.9 cm University of 18:26:00 [facility] [place] Body weight 2021-12-06 88.179 kg University of 18:26:00 [facility] BMI 2021-12-06 26.37 kg/m2 University of 18:26:00 [facility] Branch Oxygen saturation 2021-12-06 96 /min University of in Arterial blood 18:26:00 [facility] by Pulse oximetry Branch Systolic blood 2021-12-05 138 mm[Hg] manual University of pressure 15:00:00 [facility] Branch Diastolic blood 2021-12-05 68 mm[Hg] manual University o f pressure 15:00:00 [facility] Branch Heart rate 2021-12-05 58 /min University of 15:00:00 [facility] Branch Respiratory rate 2021-12-05 22 /min University of 15:00:00 [facility] Branch Body weight 2021-12-05 88.633 kg University of 15:00:00 [facility] BMI 2021-12-05 26.50 kg/m2 University of 15:00:00 [facility] [place] Oxygen saturation 2021-12-05 97 /min arrived on 2l/m Univers ity of in Arterial blood 15:00:00 NC, took off; 6MW [facility] by Pulse oximetry done RA Branch Systolic blood 2021-11-30 120 mm[Hg] manual University of pressure 14:00:00 [facility] Branch Diastolic blood 2021-11-30 66 mm[Hg] manual University o f pressure 14:00:00 [facility] Branch Heart rate 2021-11-30 68 /min University of 14:00:00 [facility] Branch Respiratory rate 2021-11-30 22 /min University of 14:00:00 [facility] [place] Body weight 2021-11-30 90.311 kg University of 14:00:00 [facility] BMI 2021-11-30 27.00 kg/m2 University of 14:00:00 [facility] Branch Oxygen saturation 2021-11-30 94 /min arrived on RA; Universi ty of in Arterial blood 14:00:00 exercised on RA [facility] edical by Pulse oximetry Branch Systolic blood 2021-11-28 118 mm[Hg] manual University of pressure 15:00:00 [facility] Branch Diastolic blood 2021-11-28 60 mm[Hg] manual University o f pressure 15:00:00 [facility] Branch Heart rate 2021-11-28 63 /min University of 15:00:00 [facility] Branch Respiratory rate 2021-11-28 22 /min University of 15:00:00 [facility] [place] Body weight 2021-11-28 90.084 kg University of 15:00:00 [facility] Branch BMI 2021-11-28 26.94 kg/m2 University of 15:00:00 [facility] Branch Oxygen saturation 2021-11-28 97 /min [facility] of in Arterial blood 15:00:[address] [facility] christa by Pulse oximetry Branch Systolic blood 2021-11-24 130 mm[Hg] manual University of pressure 16:00:00 [facility] Diastolic blood 2021-11-24 58 mm[Hg] manual University o f pressure 16:00:00 [facility] Heart rate 2021-11-24 55 /min University of 16:00:00 [facility] Branch Respiratory rate 2021-11-24 20 /min University of 16:00:00 [facility] Branch Body weight 2021-11-24 92.897 kg University of 16:00:00 [facility] Branch BMI 2021-11-24 27.78 kg/m2 University of 16:00:00 [facility] Branch Oxygen saturation 2021-11-24 95 /min [facility] of in Arterial blood 16:00:00 [facility] by Pulse oximetry Branch Systolic blood 2021-11-21 122 mm[Hg] manual University of pressure 15:00:00 [facility] Branch Diastolic blood 2021-11-21 54 mm[Hg] manual University o f pressure 15:00:00 [facility] Branch Heart rate 2021-11-21 52 /min University of 15:00:00 [facility] Branch Respiratory rate 2021-11-21 20 /min University of 15:00:00 [facility] Branch Body weight 2021-11-21 92.897 kg University of 15:00:00 [facility] Branch BMI 2021-11-21 27.78 kg/m2 University of 15:00:00 [facility] Branch Oxygen saturation 2021-11-21 94 /min due to walk into [facility] of in Arterial blood 15:00:00 MI, wore 2 l/m [place] [facility] by Pulse oximetry pulsed [place]; Branch exercised on RA Systolic blood 2021-11-16 120 mm[Hg] manual; frequent Universit y of pressure 15:00:00 missed beats; [facility] asymptomatic Branch Diastolic blood 2021-11-16 58 mm[Hg] manual; frequent Universi ty of pressure 15:00:00 missed beats; [facility] asymptomatic Branch Heart rate 2021-11-16 58 /min [facility] 15:00:00 [facility] Respiratory rate 2021-11-16 20 /min [facility] 15:00:00 [facility] Body weight 2021-11-16 93.895 kg [facility] 15:00:00 [facility] BMI 2021-11-16 28.07 kg/m2 [facility] 15:00:00 [facility] [place] Oxygen saturation 2021-11-16 89 /min arrived on 2l/m Univers ity of in Arterial blood 15:00:00 pulsed NC; con't [place] [facility] by Pulse oximetry want to exercise Branch on RA; encouraged PLB Temperature Oral 2019-01-17 97.9 F [facility] rmann (F) 01:21:00 Systolic (mm Hg) 2019-01-17 [facility] rmann 01:21:00 Diastolic (mm Hg) 2019-01-17 [facility] ermann 01:21:00 Height 2019-01-17 182.88 cm [facility] 01:18:00 Weight 2019-01-17 [facility] 01:18:00 BMI Calculated 2019-01-17 [facility] 01:18:00 Respitory Rate 2019-01-17 [facility] 01:14:00 Respitory Rate 2019-01-17 [facility] 00:10:00 Respitory Rate 2019-01-17 [facility] 00:05:00 Systolic (mm Hg) 2019-01-17 [facility] rmann 00:05:00 Diastolic (mm Hg) 2019-01-17 [facility] ermann 00:05:00 Temperature Oral 2019-01-17 98 F [facility] rmann (F) 00:05:00 Systolic (mm Hg) 2019-01-16 [facility] 21:00:00 Diastolic (mm Hg) 2019-01-16 [facility] ermann 21:00:00 Heart Rate 2019-01-16 [facility] 20:16:00 Temperature Oral 2019-01-16 98.0 F [facility] rmann (F) 20:16:00 Height 2019-01-16 182.88 cm [facility] 20:16:00 BMI Calculated 2019-01-16 [facility] 20:16:00 Weight 2019-01-16 [facility] 20:16:00 Systolic (mm Hg) 2015-09-21 [facility] 16:15:00 Diastolic (mm Hg) 2015-09-21 [facility] Michael ermann 16:15:00 Respitory Rate 2015-09-21 [facility] 16:15:00 Systolic (mm Hg) 2015-09-21 [facility] Denny rmann 16:00:00 Diastolic (mm Hg) 2015-09-21 [facility] ermann 16:00:00 Respitory Rate 2015-09-21 [facility] 16:00:00 Systolic (mm Hg) 2015-09-21 [facility] Denny rmann 15:45:00 Diastolic (mm Hg) 2015-09-21 [facility] ermann 15:45:00 Respitory Rate 2015-09-21 [facility] 15:45:00 Heart Rate 2015-09-19 [facility] 18:16:00 Temperature Oral 2015-09-19 98.1 F [facility] Denny rmann (F) 18:16:00 Weight 2015-09-19 Ivana [facility] n 18:16:00 Height 2015-09-19 182.88 cm [facility] 18:16:00 BMI Calculated 2015-09-19 [facility] 18:16:00 Weight 2015-07-20 [facility] 13:06:00 BMI Calculated 2015-07-20 [facility] 13:06:00 Height 2015-07-20 185.42 cm [facility] 13:06:00 Procedures Procedure Date / Time Performing Clinician Source Performed AUTHORIZATION FOR RELEASE 2022-05-30 05:01:00 Doctor Eliza, [facility] AUTHORIZATION FOR RELEASE 2022 06:01:00 Doctor Kemissigned, [facility] PHYSICIAN ORDERS 2022-04-16 06:01:00 Doctor Unassigned, [facility] [place] DME/SUPPLY JUSTIFICATION 2022-04-06 06:01:00 Doctor Eliza, [facility] [place] [facility] ASSIGNMENT OF BENEFITS 2022-03-08 19:44:47 Doctor Eliza [facility] [place] [facility] PHYSICIAN ORDERS 2022-02-12 06:01:00 Doctor Kemissigned, [facility] MEDICATION CORRESPONDENCE 2022-02-05 06:01:00 Doctor Eliza, [facility] MEDICATION CORRESPONDENCE 2021-12-22 05:01:00 Doctor Unassigned, [facility] FLU 2021-12-06 19:32:57 Liborio Hall [facility] VACC(),65+YR,0.5 Medica l Branch ML,IM,ADJUVANTED,QUAD(FLUA D) PULMONARY REHAB ITP REPORT 2021-12-05 20:50:00 Doctor Eliza [facility] FUNGUS (ROUTINE) CULTURE 2021-11-28 19:49:00 Neeta Del Toro [facility] PULMONARY REHAB SESSION 2021-11-24 05:00:00 [facility] NO SHOW OR MISSED 2021-11-02 05:01:00 Doctor Carlos Kay [facility] APPOINTMENT POLICY [place] [facility] ACKNOWLEDGEMENT Colonoscopy<sup>1, 2</sup> 2015-09-21 05:00:00 [facility] Diabetic foot examination 2014-09-17 05:00:00 Me morial Rolando Operation<sup>3</sup> 2014-07-02 05:00:00 [facility] Cervical laminoplasty with [facility] decompression of spinal cord Encounters Start End Encounter Admission Attending Care Care Encounter Source Date/Time Date/Time Type Type Clinicians Facility Department ID 2020-12-31 Emergency [facility] [id number] Univers 13:27:36 [facility] 2020-12-30 Emergency [facility] [id number] Univers 15:37:20 [facility] 2022-10-15 2022-10-15 Outpatient R TESS [facility] [id number] Univers 11:00:00 11:00:00 DARIANA carlos [facility] 2022-08-10 2022-08-10 Outpatient R ISABEL [facility] [id number] Univers 13:20:00 13:20:00 LIBORIO [facility] 2022-07-09 2022-07-09 Outpatient R YA QUINTANA [facility] [id number] Univers 10:00:00 10:00:00 YA QUINTANA i [facility] 2022-06-20 2022-06-20 Refill [facility] 1.2.840.114 [id number] Univers 00:00:00 00:00:00 Liborio RODRIGUEZ [id number] i [id number] [id number] Md dical NAL 044 [facility] 2022-06-03 2022-06-03 Refill [facility] 1.2.840.114 [id number] Univers 00:00:00 00:00:00 Liborio RODRIGUEZ 350.1.13.10 i ty [facility] [id number] [id number] Md dical NAL 044 [facility] 2022-06-02 2022-06-02 Refill [facility] 1.2.840.114 [id number] Univers 00:00:00 00:00:00 Jaxon TREJO 350.1.13.10 i ty of [facility] [place] [id number] [facility] [address] [place] 2022-05-30 2022-05-30 Orders Doctor REYES 1.2.840.114 [id number] Univers 00:00:00 00:00:00 Only Unassigned, TOYA 350.1.13.10 ity of [place] [facility] 4.2.7.2.686 Adelso as [id number] [facility] [address] [place] 2022 2022 Orders Doctor REYES 1.2.840.114 [id number] Univers 00:00:00 00:00:00 Only Unassigned, TOYA 350.1.13.10 ity of [place] [facility] 4.2.7.2.686 Adelso as [id number] [facility] [address] [place] 2022-04-27 2022-04-27 Telephone [facility] 1.2.840.114 [id number] Univers 00:00:00 00:00:00 Liborio RODRIGUEZ 350.1.13.10 [place] [id number] Md dical NAL 044 [facility] 2022-04-16 2022-04-16 Public Area Supervisor 2, Adc Lab [facility] 1.2.840.114 [id number] Univers 10:45:00 11:00:00 Visit Dariana Giron 350.1.13.10 ity of Felipa Garsiasaminamarcelo MAKI 4.2.7.2.686 [place] PROFESSIO [id number] Md dical NAL 353 [facility] 2022-04-16 2022-04-16 Outpatient R SAYRA [facility] [id number] Univers 10:45:00 10:45:00 VINITHA ity [facility] 2022-04-16 2022-04-16 Office Tess [facility] 1.2.840.114 [id number] Univers 10:20:00 10:40:00 Visit Dariana RODRIGUEZ 350.1.13.10 ity [facility] [place] [id number] Md dical NAL 059 [facility] 2022-04-16 2022-04-16 Orders Doctor REYES 1.2.840.114 [id number] Univers 00:00:00 00:00:00 Only Unassigned, TOYA 350.1.13.10 ity of [facility] 4.2.7.2.686 Adel[place] as [id number] [facility] [address] [place] 2022-04-13 2022-04-13 Nurse Annette PULLIAM 1.2.840.114 [id number] Univers 00:00:00 00:00:00 Triage TOYA Fernandez 350.1.13.10 ity of [facility] 4.2.7.2.686 Adel[place] as [id number] [facility] [address] [place] 2022-04-12 2022-04-12 Office Isabel [facility] 1.2.840.114 [id number] Univers 13:00:00 13:40:00 Visit Liborio RODRIGUEZ 350.1.13.10 i ty of [facility] 4[place] [id number] Md dical NAL 044 [facility] 2022-04-12 2022-04-12 Outpatient R ISABEL [facility] [id number] Univers 13:00:00 13:00:00 LIBORIO aranda [facility] 2022-04-11 2022-04-11 Nurse REYES Núñez 1.2.840.114 [id number] Univers 00:00:00 00:00:00 Triage Selene PITTMAN 350.1.13.10 ity of HOSPITAL 4.2.7.2.686 Adelso as [id number] [facility] [address] [place] 2022-04-10 2022-04-10 Public Area Supervisor 2, Adc Lab [facility] 1.2.840.114 [id number] Univers 14:30:00 14:45:00 Visit Liborio Hall 350.1.13.10 [place] [id number] [facility] 353 [facility] 2022-04-10 2022-04-10 [id number] Univers 14:30:00 14:30:00 LIBORIO rosi [facility] 2022-04-10 2022-04-10 [facility] 1.2.840.114 [id number] Univers 00:00:00 00:00:00 Liborio RODRIGUEZ 350.1.13.10 i [place] [id number] Md dictn NAL 044 [facility] 2022-04-06 2022-04-06 [facility]phone [facility] 1.2.840.114 [id number] Univers 00:00:00 00:00:00 Liborio RODRIGUEZ 350.1.13.10 i ty [place] [id number] Md dical NAL 044 [facility] 2022-04-06 2022-04-06 Orders Doctor REYES 1.2.840.114 [id number] Univers 00:00:00 00:00:00 Only Unassigned, TOYA 350.1.13.10 ity of [place] [facility] 4.2.7.2.686 Adelso as [id number] [facility] [address] [place] 2022-04-05 2022-04-05 Telephone [facility] [id number] [id number] Univers 00:00:00 00:00:00 Ya RODRIGUEZ 350.1.13.10 i ty of [facility] 4[place]2.[place] [id number] [facility] 085 [facility] 2022-03-27 2022-03-27 [facility] 1.2.840.114 [id number] Univers 00:00:00 00:00:00 Liborio RODRIGUEZ 350.1.13.10 i ty of [facility] 4[place] [id number] [address] 2022-03-26 2022-03-26 [place] [facility] 1.2.840.114 [id number] Univers 00:00:00 00:00:00 Liborio RODRIGUEZ 350.1.13.10 i ty of [facility] [place] [id number] [address] 2022-03-19 2022-03-19 [facility] 1.2.840.114 [id number] Univers 00:00:00 00:00:00 Liborio RODRIGUEZ 350.1.13.10 i ty of [facility] [place] [id number] [address] 2022-03-11 2022-03-11 [facility] 1.2.840.114 [id number] Univers 00:00:00 00:00:00 Ya RODRIGUEZ 350.1.13.10 i ty of [facility] [place] [id number] [address] 2022-03-08 2022-03-08 [facility] [id number] [id number] Univers 14:40:00 16:00:29 LIBORIO aranda [facility] 2022-03-08 2022-03-08 Office [facility] 1.2.840.114 [id number] Univers 14:40:00 16:00:29 Visit Liborio RODRIGUEZ 350.1.13.10 i ty of [place] [id number] Md dical NAL 044 [facility] 2022-03-08 2022-03-08 Office [facility] 1.2.840.114 [id number] Univers 14:00:00 14:20:00 Visit Liborio RODRIGUEZ 350.1.13.10 i ty of [place] [id number] Md dical NAL 044 [facility] 2022-03-08 2022-03-08 Orders Doctor REYES 1.2.840.114 [id number] Univers 00:00:00 00:00:00 Only Unassigned, TOYA 350.1.13.10 ity of [place] [facility] 4.2.7.2.686 Adelso as [id number] [address] 2022-03-05 2022-03-05 Public Area Supervisor 2, Adc Lab [facility] 1.2.840.114 [id number] Univers 13:00:00 13:15:00 Visit Liborio Hall 350.1.13.10 ity of [facility] [place] [id number] Md dical NAL 353 [facility] 2022-03-05 2022-03-05 Outpatient R ISABEL [facility] [id number] Univers 13:00:00 13:00:00 LIBORIO ity of [facility] 2022-02-20 2022-02-20 Refill [facility] 1.2.840.114 [id number] Univers 00:00:00 00:00:00 Liborio RODRIGUEZ 350.1.13.10 i ty of [place] [id number] Md dical NAL 044 [facility] 2022-02-12 2022-02-12 Public Area Supervisor 2, Adc Lab [facility] 1.2.840.114 [id number] Univers 14:30:00 14:45:00 Visit Maral Garsia 350.1.13.10 ity of [facility] 4.[place] [id number] Md dical NAL 353 [facility] 2022-02-12 2022-02-12 Outpatient R SAYRA [facility] [id number] Univers 14:30:00 14:30:00 VINITHA ity of [facility] [place] 2022-02-12 2022-02-12 Refindy QuintanaPRESBYTER[facility] 1.2.840.114 [id number] Univers 00:00:00 00:00:00 Ya RODRIGUEZ 350.1.13.10 i ty of [facility] 4[place] [id number] Md dical NAL 085 [facility] 2022-02-12 2022-02-12 Orders Doctor REYES 1.2.840.114 [id number] Univers 00:00:00 00:00:00 Only Unassigned, TOYA 350.1.13.10 ity of [place] [facility] 4.2.7.2.686 Adelso as [id number] [address] 2022-02-12 2022-02-12 Refill [facility] 1.2.840.114 [id number] Univers 00:00:00 00:00:00 Liborio RODRIGUEZ 350.1.13.10 i ty [place] [id number] Md dical NAL 044 [facility] 2022-02-07 2022-02-07 El [facility] 1.2.840.114 [id number] Univers 00:00:00 00:00:00 Liborio RODRIGUEZ 350.1.13.10 i ty of [facility] 4.2.[place] [id number] Md dical NAL 044 [facility] 2022-02-05 2022-02-05 Orders Doctor REYES 1.2.840.114 [id number] Univers 00:00:00 00:00:00 Only Unassigned, TOYA 350.1.13.10 ity of [place] [facility]OSPITAL 4.2.7.2.686 Adelso as [id number] [address] 2022-01-24 2022-01-24 [facility]TER[facility] 1.2.840.114 [id number] Univers 00:00:00 00:00:00 Ya RODRIGUEZ 350.1.13.10 i ty of [facility] 4.[place] [id number] Md dictn NAL 085 [facility] 2022-01-24 2022-01-24 [facility] 1.2.840.114 [id number] Univers 00:00:00 00:00:00 Liborio RODRIGUEZ 350.1.13.10 i ty of [facility] 4.[place].2.[place] [id number] Md dictn NAL 044 [facility] 2022-01-18 2022-01-18 [facility] 1.2.840.114 [id number] Univers 00:00:00 00:00:00 Liborio RODRIGUEZ 350.1.13.10 i ty [place] [id number] Md dical NAL 044 [facility] 2022-01-12 2022-01-12 [facility] 1.2.840.114 [id number] [id number] Univers 00:00:00 00:00:00 Liborio RODRIGUEZ 350.1.13.10 i ty of [facility] 4.2.[place].2.[place] [id number] Md dical NAL 044 [facility] 2022-01-12 2022-01-12 [facility] 1.2.840.114 [id number] [id number] Univers 00:00:00 00:00:00 Liborio RODRIGUEZ 350.1.13.10 i ty of [facility] 4.2.[place].2.[place] [id number] Md dical NAL 044 [facility] 2022-01-09 2022-01-09 [facility] 1.2.840.114 [id number] Univers 00:00:00 00:00:00 Liborio RODRIGUEZ 350.1.13.10 i [place] [id number] Md dical NAL 044 [facility] 2022-01-08 2022-01-08 Outpatient R YA QUINTANA [facility] 10 [id number] Univers 10:00:00 10:23:18 YA QUINTANA i ty of [facility] [place] 2022-01-08 2022-01-08 Office Bairon [facility] 1.2.840.114 [id number] Univers 10:00:00 10:23:18 Visit Kierrakychrystal RODRIGUEZ 350.1.13.10 i [place] [id number] Md dictn NAL [address] [place] [address] 2022-01-02 2022-01-02 [facility] 1[id number] [facility] 00:00:00 00:00:00 Liborio RODRIGUEZ 350.1.13.10 i ty of [facility] 4.[place] [id number] Md dical NAL [address] [place] [address] 2022-01-02 2022-01-02 Refill [facility] 1.2.840.114 [id number] Univers 00:00:00 00:00:00 Ya RODRIGUEZ 350.1.13.10 i ty of [facility] 4[place]2.[place] [id number] Md dictn NAL [address] [place] [address] 2021-12-29 2021-12-29 Telephone [facility] 1.2.029.496 [id number] [id number] Univers 00:00:00 00:00:00 Ya RODRIGUEZ 350.1.13.10 i ty [place] 4[place] [id number] Md dictn NAL [address] [place] [address] 2021-12-28 2021-12-28 Telephone [facility]PRES[facility] 1.2.840.[id number] [facility] 00:00:00 00:00:00 Liborio RODRIGUEZ 350.1.13.10 i ty of [place] [id number] Md dical NAL 044 [facility] 2021-12-22 2021-12-22 Orders Doctor REYES 1.2.840.114 [id number] Univers 00:00:00 00:00:00 Only Unassigned, TOYA 350.1.13.10 ity of [place] [facility] 4.2.7.2.686 Adel[place] as [id number] [address] 2021-12-19 2021-12-19 Letter [facility]PRES[facility] 1.2.840.114 [id number] Univers 00:00:00 00:00:00 (Out) Summer RODRIGUEZ 350.1.13.10 i ty of [place] [id number] [facility] 296 [facility] 2021-12-06 2021-12-06 Outpatient R ISABEL [facility] [id number] Univers 13:20:00 14:20:30 LIBORIO aranda [facility] 2021-12-06 2021-12-06 Office [facility] 1.2.840.114 [id number] Univers 13:20:00 14:20:30 Visit Liborio RODRIGUEZ 350.1.13.10 i ty of [place] [id number] Md dical NAL 044 [facility] 2021-12-05 2021-12-05 Outpatient R LIO [facility] [id number] Univers 10:00:00 16:37:56 LEXI aranda [facility] 2021-12-05 2021-12-05 Ancillary Therapist, Adc Pulmonary [facility] 1.2.840.114 [id number] Univers 10:00:00 16:37:56 Visit Lexi Vaca 350.1.13. 10 ity of [place] [id number] Md dical NAL 296 [facility] 2021-12-05 2021-12-05 Orders Doctor PULLIAM 1.2.840.114 [id number] Univers 00:00:00 00:00:00 Only Unassigned, TOYA 350.1.13.10 ity of [place] [facility] 4.2.7.2.686 Adelso as [id number] [facility] [address] 2021-11-30 2021-11-30 Outpatient R LIO [facility] [id number] Univers 09:00:00 14:00:05 LEXI ity of [facility] 2021-11-30 2021-11-30 Ancillary Therapist, [facility] 1.2.840.114 [id number] Univers 09:00:00 14:00:05 Visit Lexi [place]aca 350.1.13. 10 ity of [place]2.[place] [id number] Md dical NAL 296 [facility] 2021-11-30 2021-11-30 Patient Doctor [facility] 1.2.840.114 [id number] Univers 00:00:00 00:00:00 Secure Msg Unassigned, JENNIFER 350.1.13.10 ity [place] 4[place]2.7.2.[place] [id number] Md dical NAL 059 [facility] 2021-11-28 2021-11-28 Outpatient R KATEY [facility] [id number] Univers 14:00:00 14:18:18 ROLA aranda [facility] 2021-11-28 2021-11-28 Office Katey [facility] 1.2.840.114 [id number] Univers 14:00:00 14:18:18 Visit Rola ROOT 350.1.13.10 [place]2.[place] [id number] [facility] AND PATEL [address] [facility] 2021-11-28 2021-11-28 Ancillary Therapist, [facility] 1.2.840.114 [id number] Univers 10:00:00 11:30:45 Visit Lexi Vaca 350.1.13. 10 ity of [place].2.[place] [id number] Md dical NAL 296 [facility] 2021-11-28 2021-11-28 Public Area Supervisor 2, Adc Lab [facility] 1.2.840.114 [id number] Univers 11:00:00 11:15:00 Visit Maral Garsia 350.1.13.10 ity of [place] 4[place].2.[place] [id number] Md dical NAL 353 [facility] 2021-11-28 2021-11-28 Outpatient R LIO [facility] [id number] Univers 10:00:00 10:00:00 LEXI ity of [facility] [place] 2021-11-24 2021-11-24 Ancillary Therapist, [facility] 1.2.840.114 [id number] Univers 11:00:00 13:01:57 Visit Lexi [place]aca 350.1.13. 10 ity of [place] [id number] Md dical NAL 296 [facility] 2021-11-24 2021-11-24 Orders Doctor REYES 1.2.840.114 [id number] Univers 00:00:00 00:00:00 Only Unassigned, TOYA 350.1.13.10 ity of [place] [facility] 4.2.7.2.686 [place] as [id number] [address] 2021-11-22 2021-11-22 Refill [facility] 1.2.840.114 [id number] Univers 00:00:00 00:00:00 Ya RODRIGUEZ 350.1.13.10 i ty of [place] [id number] Md dical NAL 085 [facility] 2021-11-21 2021-11-21 Ancillary Therapist, [facility] 1.2.840.114 [id number] Univers 10:00:00 11:38:20 Visit Lexi [place]aca 350.1.13. 10 ity of [place] [id number] Md dical NAL 296 [facility] 2021-11-19 2021-11-19 Refill Isabel [facility] 1.2.840.114 [id number] Univers 00:00:00 00:00:00 Liborio RODRIGUEZ 350.1.13.10 i ty of [place].2.[place] [id number] Md dical [facility] 044 [facility] 2021-11-16 2021-11-16 [facility] [id number] Univers 10:00:00 11:59:47 LEXI aranda [facility] 2021-11-16 2021-11-16 Ancillary Therapist, [facility] 1.2.840.114 [id number] Univers 10:00:00 11:59:47 Visit Lexi Vaca 350.1.13. 10 it[place] [id number] [facility] 296 [facility] 2021-11-16 2021-11-16 Orders Doctor PULLIAM 1..840.114 [id number] Univers 00:00:00 00:00:00 Only Unassigned, TOYA 350.1.13.10 [facility] 4.2.7.2.686 [place] [id number] [address] 2021-11-14 2021-11-14 Ancillary Therapist, [facility] 1.2.840.114 [id number] Univers 10:00:00 11:49:36 Visit Lexi Vaca 350.1.13. 10 ity of [facility] 4.2.7.2.[place] [id number] [facility] 296 [facility] 2021-11-14 2021-11-14 Outpatient [facility] [id number] Univers 10:00:00 10:00:00 LEXI [facility] 2021-11-12 2021-11-12 Reggie [facility] 1.2.840.114 [id number] Univers 00:00:00 00:00:00 Liborio RODRIGUEZ 350.1.13.10 i ty of [facility] 4.2.7.2.[place] [phone] Md dical [facility] 044 [facility] 2021-11-102021-11-10 Outpatient R LIO [facility] [id number] Univers 10:00:00 11:11:06 LEXI aranda [facility] 2021-11-10 2021-11-10 Ancillary Therapist, [facility] 1.2.840.114 [id number] Univers 10:00:00 11:11:06 Visit Lexi [place]aca 350.1.13. 10 ity [place] [id number] [address] 2021-11-07 2021-11-07 Outpatient [facility] [id number] Univers 10:00:00 11:55:14 LEXI aranda [facility] 2021-11-07 2021-11-07 Ancillary Therapist, [facility] 1.2.840.114 [id number] Univers 10:00:00 11:55:14 Visit Lexi Vaca 350.1.13. 10 [place] [id number] [address] 2021-11-07 2021-11-07 Orders Doctor REYES 1.2.840.114 [id number] Univers 00:00:00 00:00:00 Only Unassigned, TOYA 350.1.13.10 ity of [place] [facility] 4.2.7.2.686 Adel[place] as [id number] [address] 2021-11-03 2021-11-03 Telephone [facility]PRES[facility] 1.2.540.336 [id number] Univers 00:00:00 00:00:00 Summer RODRIGUEZ 350.1.13.10 i ty of [place].2.[place] [id number] [address] 2021-11-02 2021-11-02 Outpatient [facility] [id number] Univers 09:00:00 11:11:30 LEXI aranda [facility] 2021-11-02 2021-11-02 Ancillary Therapist, [facility] 1.2.840.114 [id number] Univers 09:00:00 11:11:30 Visit Lio Lexi Rudolph RODRIGUEZ 350.1.13. 10 ity [place]2.[place] [id number] Md dical [address] 2021-11-02 2021-11-02 Outpatient R LOWELL, [facility] [id number] Univers 11:00:00 11:00:00 HASMUKH ity of [facility] 2021-11-02 2021-11-02 Orders Doctor REYES 1.2.840.114 [id number] Univers 00:00:00 00:00:00 Only Unassigned, TOYA 350.1.13.10 ity of [place] [facility] 4.2.7.2.686 Adelso as [id number] [facility] [address] [place] 2021-11-01 2021-11-01 [facility] 1.2.840.114 [id number] Univers 08:52:21 23:59:00 Encounter Izacarimargarita [place] 350.1.13.10 ity of [facility] 4.2.7.2.[place] [id number] [facility] [address] [place] 2021-11-01 2021-11-01 [facility] 1.2.840.114 [id number] Univers 08:52:08 23:59:00 Encounter Qiangjun [place] 350.1.13.10 [place]y [place] [id number] [facility] [address] [place] 2021-11-01 2021-11-01 [facility] 1.2.840.114 [id number] Univers 08:51:53 08:51:53 Encounter Qiangjun [place] 350.1.13.10 [place]2.[place] [id number] [facility] [address] [place] 2021-11-01 2021-11-01 Outpatient R [facility] [id number] Univers 08:51:26 08:51:26 DARIANA aranda o f [facility] [place] 2021-11-01 2021-11-01 [facility] [id number] Univers 08:51:26 08:51:26 DARIANA rosi o f [facility] 2021-11-01 2021-11-01 [facility] 1.2.840.114 [id number] Univers 08:51:26 08:51:26 Encounter Dariana RODRIGUEZ 350.1.13.10 ity of [place].2.[place] [id number] [facility] [address] [place] 2021-11-01 2021-11-01 Outpatient [facility] [id number] Univers 00:00:00 00:00:00 DARIANA rosi o f [facility] 2021-10-31 2021-10-31 Outpatient R LOWELL, [facility] [id number] Univers 11:00:00 11:52:17 HASMUKH raanda [facility] 2021-10-31 2021-10-31 Ancillary Halina Leavitt [facility] 1.2.84 0.114 [id number] Univers 11:00:00 11:52:17 Visit Hasmukh Etienne 350.1.13.10 ity of [place].2.[place] [id number] Md dical NAL 179 [facility] 2021-10-26 2021-10-26 Public Area Supervisor 2, Adc Lab [facility] 1.2.840.114 [id number] Univers 14:00:00 14:15:00 Visit Unknown, Trudy RODRIGUEZ 350.1.13.1 0 ity of [place].2.[place] [id number] Md dical NAL 353 [facility] 2021-10-26 2021-10-26 Outpatient R KASSANDRA, [facility] [id number] Univers 14:00:00 14:00:00 ATTENDING itrohan [facility] 2021-10-26 2021-10-26 Ancillary Florence Chris [facility] 1.2.840 .114 [id number] Univers 13:00:00 13:59:53 Visit Hasmukh Etienne 350.1.13.10 ity of [place].2.[place] [id number] Md dical NAL 179 [facility] 2021-10-26 2021-10-26 Telephone Kenneth [facility] 1.2.899.979 [id number] Univers 00:00:00 00:00:00 Summer RODRIGUEZ 350.1.13.10 i ty of [place].2.[place] 585.1815629 Md dical NAL 296 [facility] 2021-10-26 2021-10-26 Orders Doctor REYES 1.2.840.114 [id number] Univers 00:00:00 00:00:00 Only Unassigned, TOYA 350.1.13.10 ity of [place] [facility] 4.2.7.2.686 [place]el[place] as [id number] [address] 2021-10-24 2021-10-24 Outpatient Ab GIRON [facility] [id number] Univers 00:00:00 00:00:00 DARIANA aranda o f [facility] 2021-10-24 2021-10-24 [facility] 1.2.840.114 [id number] Univers 00:00:00 00:00:00 Liborio RODRIGUEZ 350.1.13.10 i ty of [place] [id number] Md dical NAL 044 [facility] 2021-10-24 2021-10-24 [facility] 1.2.840.114 [id number] Univers 00:00:00 00:00:00 Liborio RODRIGUEZ 350.1.13.10 i ty [place].2.[place] [id number] Md dical NAL 044 [facility] 2021-10-19 2021-10-19 Ancillary Halina Leavitt [facility] 1.2.84 0.114 [id number] Univers 11:00:00 13:23:38 Visit Hasmukh Etienne 350.1.13.10 ity of [facility] 4.2.7.2.[place] [id number] Md dical NAL 179 [facility] 2021-10-19 2021-10-19 Outpatient R LOWELL [facility] [id number] Univers 11:00:00 11:00:00 HASMUKH ity [facility] 2021-10-11 2021-10-11 Outpatient R EVELINE LUCIO [facility] [id number] Univers 13:30:00 14:41:51 EVELINE LUCIO [facility] 2021-10-11 2021-10-11 Office K[facility]ahPRES[facility] 1.2.840.114 [id number] Univers 13:30:00 14:41:51 Visit Eveline RODRIGUEZ 350.1.13.10 ity of [facility] 4.2.7.2.[place] [id number] Md dical NAL 044 [facility] 2021-10-11 2021-10-11 Outpatient R EVELINE LUCIO [facility] [id number] Univers 13:30:00 13:30:00 EVELINE LUCIOy [facility] 2021-10-06 2021-10-06 Telephone Tess [facility] 1.2.406.997 [id number] Univers 00:00:00 00:00:00 Dariana RODRIGUEZ 350.1.13.10 ity of [place] [id number] Md dical NAL 059 [facility] 2021-10-06 2021-10-06 Transition MELANIE Ty 1.2.840.114 [id number] Univers 00:00:00 00:00:00 of Care Nydia LEPEY 350.1.13.10 [place] [id number] [address] 2021-10-04 2021-10-05 Outpatient X KB [facility] TATE [id number] Univers 04:33:00 15:10:00 MARISELA ity [facility] 2021-10-04 2021-10-05 Emergency Xavier Tejada [facility] 1.2.840. 114 [id number] Univers 04:33:00 15:10:00 Marisela Quiles 350.1.13.10 ity [facility] [place]2.[place] [id number] [facility] [address] Branch 2021-10-05 2021-10-05 Outpatient R [facility] [id number] Univers 13:00:00 13:00:00 ity [facility] 2021-10-04 2021-10-04 Nurse REYES Lagunas 1.2.840.114 [id number] Univers 00:00:00 00:00:00 Triage Marylin [place] 350.1.13.10 it y of [facility] 4.2.7.2.686 [place] as [phone] [facility] 019 Branch 2021-10-04 2021-10-04 Letter Testing, UNIVERSIT 1.2.840.114 [id number] Univers 00:00:00 00:00:00 (Out) [facility] 350.1.13.10 i ty of [facility] [place] [phone] Med [facility] [address] [place] 2021-10-03 2021-10-03 [facility] [id number] Univers 13:00:00 14:20:09 [facility] 2021-10-03 2021-10-03 Ancillary Chuck Chris [facility] 1.2.840. 114 [id number] Univers 13:00:00 14:20:09 Visit Hasmukh Etienne 350.1.13.10 ity [facility] [place] [phone] [facility] 2021-10-03 2021-10-03 Outpatient R LOWELL [facility] [id number] Univers 13:00:00 14:20:09 [facility] 2021-10-01 2021-10-01 Reggie Lucio [facility] 1.2.840.114 [id number] Univers 00:00:00 00:00:00 Eveline RODRIGUEZ 350.1.13.10 ity [facility] [place] [id number] Md dical NAL 044 [facility] 2021-10-01 2021-10-01 Refill Khadijah [facility] 1.2.840.114 [id number] Univers 00:00:00 00:00:00 Eveline ARANDAFLORENCIO 350.1.13.10 ity of [facility] [place] [phone] Md dical NAL 044 [facility] 2021-09-29 2021-09-29 Outpatient R YA QUINTANA [facility] 10 [id number] Univers 11:00:00 11:42:05 YA QUINTANA i ty of [facility] [place] 2021-09-29 2021-09-29 Office Bairon [facility] 1.2.840.114 [id number] Univers 11:00:00 11:42:05 Visit Ya RODRIGUEZ 350.1.13.10 i ty of [facility] 4[place] [phone] Md dical NAL 085 [facility] 2021-09-29 2021-09-29 Outpatient R YA QUINTANA [facility] 10 [id number] Univers 11:00:00 11:00:00 YA QUINTANA i ty of [facility] [place] 2021-09-29 2021-09-29 Telephone Bairon [facility] 1.2.524.596 [id number] Univers 00:00:00 00:00:00 Ya RODRIGUEZ 350.1.13.10 i ty of [facility] 4[place] [phone] Md dical NAL 085 [facility] 2021-09-28 2021-09-28 Ancillary Nury Cortez [facility] 1.2. 840.114 [id number] Univers 16:00:00 16:45:00 Visit Hasmukh Etienne 350.1.13.10 ity [facility] [place] [id number] Md dical NAL 179 [facility] 2021-09-28 2021-09-28 Outpatient R LOWELL [facility] [id number] Univers 16:00:00 16:00:00 HASMUKH ity of [facility] 2021-09-27 2021-09-27 Outpatient R MILDRED [facility] [id number] Univers 15:00:00 15:50:24 KAVON ity [facility] 2021-09-27 2021-09-27 Outpatient R MILDRED [facility] [id number] Univers 15:00:00 15:50:24 KAVON ity [facility] 2021-09-27 2021-09-27 [facility] 1.2.840.114 [id number] Univers 15:00:00 15:50:24 Visit [facility] 350.1.13.10 it y of [place] 4.2.7.2.686 Ad[place] as NENO?BLEA [phone] Md dictn KNEY [address] [place] MED[facility] 2021-09-26 2021-09-26 Ancillary Nury Cortez [facility] 1.2. 840.114 [id number] Univers 14:30:00 15:15:00 Visit Hasmukh Etienne 350.1.13.10 ity of [place] [id number] Md dictn NAL 179 [facility] 2021-09-23 2021-09-23 Refindy Quintana [facility] 1.2.840.114 [id number] Univers 00:00:00 00:00:00 Ya NEWELLPEC 350.1.13.10 ity of [place] [phone] Miguel Reid [address] [place] [facility] 2021-09-23 2021-09-23 Refindy Hall [facility] 1.2.840.114 [id number] Univers 00:00:00 00:00:00 Liborio RODRIGUEZ 350.1.13.10 i ty of [place] [id number] Md dical NAL [address] [facility] 2021-09-22 2021-09-22 Refindy Levy [facility] 1.2.840.114 [id number] Univers 00:00:00 00:00:00 Kavon ARANDATON 350.1.13.10 i ty of [place] [id number] Md dical NAL 044 [facility] 2021-09-21 2021-09-21 Outpatient R LOWELL [facility] [id number] Univers 16:00:00 16:47:06 HASMUKH ity [facility] 2021-09-21 2021-09-21 Ancillary Nury Cortez [facility] 1.[id number] [facility] 16:00:00 16:47:06 Visit Hasmukh Etienne 350.1.13.10 ity of [place] [id number] [facility] 179 [facility] 2021-09-20 2021-09-20 Outpatient R MILDRED [facility] [id number] Univers 13:30:00 14:59:35 KAVON ity [facility] 2021-09-20 2021-09-20 Outpatient R MILDRED [facility] [id number] Univers 13:30:00 14:59:35 KAVON y [facility] 2021-09-20 2021-09-20 Office Mildred [facility] 1.2.840.114 [id number] Univers 13:30:00 14:59:35 Visit Kavon RODRIGUEZ 350.1.13.10 i ty of [place] [id number] Md dical NAL 044 [facility] 2021-09-19 2021-09-19 Ancillary Nury Cortez [facility] 1.2. 840.114 [id number] Univers 16:00:00 16:45:00 Visit Hasmukh Etienne 350.1.13.10 ity of [facility] 4[place] [id number] Md dical NAL 179 [facility] 2021-09-14 2021-09-14 Ancillary Chuck Chris [facility] 1.2.840. 114 [id number] Univers 13:45:00 14:44:46 Visit Hasmukh Etienne 350.1.13.10 ity of [place] [id number] Md dical NAL 179 [facility] 2021-09-12 2021-09-12 Ancillary AriesFlorence [facility] 1.2.840 .114 [id number] Univers 11:15:00 13:55:27 Visit Hasmukh Etienne 350.1.13.10 ity of [place] [id number] Md dical NAL 179 [facility] 2021-09-07 2021-09-07 Ancillary Chuck Chris [facility] 1.2.840. 114 [id number] Univers 13:45:00 14:30:00 Visit Hasmukh Etienne 350.1.13.10 ity of [place] 4[place] [id number] Md dical NAL 179 [facility] 2021-09-06 2021-09-06 Telephone Isabel [facility] 1.2.840.114 [id number] Univers 00:00:00 00:00:00 Liborio RODRIGUEZ 350.1.13.10 i ty of [facility] 4.[place] [id number] Md dical NAL 044 [facility] 2021-09-05 2021-09-05 Public Area Supervisor 2, Adc Lab [facility] 1.2.840.114 [id number] Univers 16:15:00 16:30:00 Visit Liborio Hall 350.1.13.10 ity of [facility] 4.2.7.2.[place] [id number] Md dical NAL 353 [facility] 2021-09-05 2021-09-05 Outpatient R ISABEL PAANNIKA [facility] [id number] Univers 15:20:00 16:16:29 LIBORIO aranda of [facility] [place] 2021-09-05 2021-09-05 Office Isabel [facility] 1.2.840.114 [id number] Univers 15:20:00 16:16:29 Visit Liborio RODRIGUEZ 350.1.13.10 i ty of [facility] 4.2.[place].2.[place] [id number] Md dical NAL 044 [facility] 2021-09-05 2021-09-05 Outpatient R ETIENNE [facility] [id number] Univers 11:00:00 11:55:12 HASMUKH aranda [facility] 2021-09-05 2021-09-05 Ancillary Chuck Chris [facility] 1.2.840. 114 [id number] Univers 11:00:00 11:45:00 Visit Hasmukh Etienne 350.1.13.10 ity of [place] [id number] Md dical NAL 179 [facility] 2021-09-05 2021-09-05 Outpatient R LOWELL [facility] [id number] Univers 11:00:00 11:00:00 [facility]KH [facility] 2021-08-24 2021-08-24 Ancillary Nury Cortez [facility] 1.2. 840.114 [id number] Univers 13:45:00 14:30:00 Visit Hasmukh Etienne 350.1.13.10 ity of [place] [id number] Md dical NAL 179 [facility] 2021-08-22 2021-08-22 Ancillary Chuck Chris [facility] 1.2.840. 114 [id number] Univers 14:30:00 15:15:00 Visit Hasmukh Etienne 350.1.13.10 ity of [facility] 4.2.7.2.[place] [phone] Md dical NAL 179 [facility] 2021-08-22 2021-08-22 Outpatient R LOWELL [facility] [id number] Univers 14:30:00 14:30:00 HASMUKH aranda [facility] 2021-08-17 2021-08-17 Ancillary Chuck Chris [facility] 1.2.840. 114 [id number] Univers 09:30:00 10:38:41 Visit Hasmukh Etienne 350.1.13.10 ity of [place] [id number] Md dical NAL 179 [facility] 2021-08-10 2021-08-10 Ancillary Chuck Chris [facility] 1.2.840. 114 [id number] Univers 09:30:00 10:15:00 Visit Etienne, Hasmukh RODRIGUEZ 350.1.13.10 ity of [facility] 4.2.7.2.[place] [phone] Md dical NAL 179 [facility] 2021-08-08 2021-08-08 Public Area Supervisor Alejandro, Simi Lab Main [facility] 1.2.[id number] [facility] 14:15:00 14:30:00 Visit Maral Garsia 350.1.13.10 ity of [facility] 4.2.[place].2.[place] [phone] Md dical NAL 353 [facility] 2021-08-08 2021-08-08 Outpatient R SAYRA [facility] [id number] [facility] 14:15:00 14:15:00 VINITHA ity of [facility] [place] 2021-08-08 2021-08-08 Ancillary Chuck Chris [facility] 1.2.840. [id number] [facility] 13:00:00 13:45:00 Visit Hasmukh Etienne 350.1.13.10 ity of [facility] 4.2.7.2.[place] [id number] Md dical [facility] 179 [facility] 2021-08-08 2021-08-08 Orders Doctor REYES 1.2.840.114 [id number] Univers 00:00:00 00:00:00 Only Unassigned, TOYA 350.1.13.10 ity of [place] [facility] 4.2.7.2.686 Adelso as [id number] [address] 2021-08-06 2021-08-06 Refill Isabel [facility] 1.2.840.114 [id number] Univers 00:00:00 00:00:00 Liborio RODRIGUEZ 350.1.13.10 i ty of [facility] 4.2.7.2.[place] [id number] Md dical NAL 044 [facility] 2021-08-03 2021-08-03 Outpatient R LOWELL [facility] [id number] Univers 11:00:00 11:47:32 HASMUKH itrohan [facility] 2021-08-03 2021-08-03 Outpatient R LOWELL [facility] [id number] Univers 11:00:00 11:47:32 HASMUKH aranda [facility] 2021-08-03 2021-08-03 Ancillary Chuck Chris [facility] 1.2.840. 114 [id number] Univers 11:00:00 11:45:00 Visit Hasmukh Etienne 350.1.13.10 ity of [place] [id number] Md dical NAL 179 [facility] 2021-08-03 2021-08-03 Outpatient R LOWELL [facility] [id number] Univers 11:00:00 11:00:00 HASMUKHJOSE JUAN aranda [facility] 2021-08-01 2021-08-01 Ancillary Halina Leavitt [facility] 1.2.84 0.114 [id number] Univers 11:00:00 11:45:00 Visit Hasmukh Etienne 350.1.13.10 ity of [place] 4[place].2.[place] [id number] Md dical NAL 179 [facility] 2021-08-01 2021-08-01 Outpatient R ETIENNE, [facility] [id number] Univers 11:00:00 11:00:00 HASMUKH [facility] 2021-08-01 2021-08-01 Telephone Isabel [facility] 1..840.114 9 [id number] Univers 00:00:00 00:00:00 Liborio RODRIGUEZ 350.1.13.10 i ty of [place] [id number] Md dical NAL 044 [facility] 2021-07-27 2021-07-27 Ancillary Chuck Chris [facility] 1.2.840. 114 [id number] Univers 11:00:00 11:45:00 Visit Hasmukh Etienne 350.1.13.10 ity of [place] 4[place].2.[place] [id number] Md dical NAL 179 [facility] 2021-07-25 2021-07-25 Ancillary Chuck Chris [facility] 1.2.840. 114 [id number] Univers 11:00:00 12:59:36 Visit Hasmukh Etienne 350.1.13.10 ity of [facility] 4.2.[place] [id number] Md dical NAL 179 [facility] 2021-07-24 2021-07-24 Outpatient R JULIANE [facility] [id number] Univers 13:20:00 13:20:00 GAYATHRI ity [facility] 2021-07-17 2021-07-17 Ancillary Halina Leavitt [facility] 1.2.84 0.114 [id number] Univers 15:15:00 17:36:17 Visit Hasmukh Etienne 350.1.13.10 ity of [place].2.[place] [id number] [facility] 179 [facility] 2021-07-17 2021-07-17 Outpatient R LOWELL [facility] [id number] Univers 15:15:00 17:36:17 HASMUKH aranda [facility] 2021-07-17 2021-07-17 Outpatient R LOWELL [facility] [id number] Univers 15:15:00 17:36:17 HASMUKH aranda [facility] 2021-07-17 2021-07-17 Outpatient R LOWELL [facility] [id number] Univers 15:15:00 15:15:00 HASMUKH rohan [facility] 2021-07-14 2021-07-14 Orders Doctor PULLIAM 1.2.840.114 [id number] Univers 00:00:00 00:00:00 Only Unassigned, TOYA 350.1.13.10 ity of [place] [facility] 4.2.7.2.686 Adelso as [id number] [address] 2021-07-11 2021-07-[facility] 1.2.840.114 [id number] Univers 00:00:00 00:00:00 Liborio RODRIGUEZ 350.1.13.10 i ty of [place] [id number] [address] 2021-07-05 2021-07-05 [facility] 1.2.840.114 [id number] Univers 00:00:00 00:00:00 Liborio RODRIGUEZ 350.1.13.10 i ty [place] [id number] [address] 2021-07-05 2021-07-05 [facility] 1.2.840.114 [id number] Univers 00:00:00 00:00:00 Liborio RODRIGUEZ 350.1.13.10 i ty of [place].2.[place] [id number] [address] 2021-07-05 2021-07-05 Telephone [facility] 1.2.840.114 [id number] Univers 00:00:00 00:00:00 [facility] 350.1.13.10 ity of [place] 4.2.7.2.686 Adelso as NENO?BLEA [id number] [place] [address] [place] MEDICAL OFFICE [facility] 2021-07-04 2021-07-04 [facility] 1.2.840.114 [id number] Univers 00:00:00 00:00:00 Liborio RODRIGUEZ 350.1.13.10 i ty [place] [id number] [address] 2021-07-03 2021-07-03 Public Area Supervisor Alejandro, Simi Lab Main [facility] 1.2.8 40.114 [id number] Univers 14:30:00 14:45:00 Visit Maral Garsia 350.1.13.10 ity of [facility] 4.2.7.2.[place] [id number] Md dicjennifer NAL 353 [facility] 2021-07-03 2021-07-03 Outpatient Ab GARSIA [facility] [id number] Univers 14:30:00 14:30:00 KRISHNAMarcelo [facility] 2021-07-03 2021-07-03 Orders Doctor REYES 1.2.840.114 [id number] Univers 00:00:00 00:00:00 Only Unassigned, TOYA 350.1.13.10 ity of [place] [facility] 4.2.7.2.686 Adel[place] as [id number] [address] 2021-06-28 2021-06-28 Telephone [facility] 1.2.840.114 [id number] Univers 00:00:00 00:00:00 Liborio RODRIGUEZ 350.1.13.10 i ty of [place] [id number] [facility] 044 [facility] 2021-06-28 2021-06-28 Telephone [facility] 1.2.840.114 [id number] Univers 00:00:00 00:00:00 Liborio RODRIGUEZ 350.1.13.10 i ty of [facility] 4.2.7.2.[place] [id number] [facility] 044 [facility] 2021-06-27 2021-06-27 Outpatient MICHAEL BAUMAN [facility] [id number] Univers 16:00:00 17:03:45 MICHAEL RIZZO rohan [facility] 2021-06-27 2021-06-27 Office Yahir [facility] 1.2.840.114 [id number] Univers 16:00:00 17:03:45 Visit Michael [facility] 350.1.13.10 ity of [facility] 4.2.7.2.686 Adelso as NENO?BLEA [id number] Md darshana RICH 092 [facility] OFFICE [facility] 2021-06-27 2021-06-27 Outpatient MICHAEL BAUMAN [facility] [id number] Univers 16:00:00 16:00:00 MICHAEL RIZZO ity [facility] 2021-06-26 2021-06-26 Refindy [facility] 1.2.840.114 [id number] Univers 00:00:00 00:00:00 Ogmaurizioukwu JENNIFER 350.1.13.10 ity of [place] [id number] Md dical NAL [address] [place] [address] 2021-06-26 2021-06-26 [facility] 1.2.840.114 [id number] Univers 00:00:00 00:00:00 Ogmaurizioukmonieu [facility] 350.1.13.10 ity of [place] 4.[place].7.2.[place] [id number] Md dical NAL [address] [place] [address] 2021-06-22 2021-06-22 Outpatient [facility] [id number] Univers 10:06:41 23:59:00 DENISHA ity of [facility] 2021-06-22 2021-06-22 [facility] 1.2.840.114 [id number] Univers 10:06:41 23:59:00 Encounter MARYJANE huber 350.1.13.10 ity [facility] [place] [id number] Md darshana SEGOVIA 809 [facility] 2021-06-22 2021-06-22 [facility] 1039 [id number] Univers 10:00:00 10:38:05 GAYATHRI ity of [facility] [place] 2021-06-22 2021-06-22 Office [facility] 1.2.840.114 [id number] Univers 10:00:00 10:38:05 Visit Gayathri SPECIALTY 350.1.13.10 [place]y of [place] [id number] Md darshana SEGOVIA 198 [facility] 2021-06-22 2021-06-22 [facility] [id number] Univers 10:00:00 10:00:00 GAYATHRI [facility] 2021-06-22 2021-06-22 Outpatient R JULIANE, [facility] [id number] Univers 10:00:00 10:00:00 GAYATHRI [facility] 2021-06-20 2021-06-20 Telephone [facility] 1.2.840.114 [id number] Univers 00:00:00 00:00:00 Liborio RODRIGUEZ 350.1.13.10 i ty of [place] [id number] [facility] 231 [facility] 2021-06-19 2021-06-19 Outpatient R EVELINE LUCIO [facility] [id number] Univers 14:00:00 15:06:35 EVELINE LUCIO [facility] 2021-06-19 2021-06-19 Outpatient R DEBORAH LUCIOLANCE [facility] [id number] Univers 14:00:00 15:06:35 EVELINE LUCIO [facility] 2021-06-19 2021-06-19 Office [facility] 1.2.840.114 [id number] Univers 14:00:00 15:06:35 Visit Eveline RODRIGUEZ 350.1.13.10 it[place] of [place] 4[place].2.[place] [id number] Md darshana [address] 2021-06-19 2021-06-19 Telephone [facility] 1.2.840.114 [id number] Univers 00:00:00 00:00:00 Liborio RODRIGUEZ 350.1.13.10 i ty of [facility] 4.2.7.2.[place] [id number] [facility] 044 [facility] 2021-06-18 2021-06-18 Refill [facility] 1.2.840.114 [id number] Univers 00:00:00 00:00:00 Liborio RODRIGUEZ 350.1.13.10 i ty of [facility] 4.2.7.2.[place] [id number] Md dical NAL 044 [facility] 2021-06-18 2021-06-18 Refindy [facility]PRES[facility] 1.2.840.114 [id number] Univers 00:00:00 00:00:00 Jaxon NEIL 350.1.13.10 i ty [place].2.[place] [id number] [facility] [address] 2021-06-16 2021-06-16 Telephone [facility] 1.2.840.114 [id number] Univers 00:00:00 00:00:00 Liborio RODRIGUEZ 350.1.13.10 i ty of [place] 4[place] [id number] Md dical NAL 044 [facility] 2021-06-15 2021-06-15 Refindy QuintanaPRES[facility]TER[facility] 1.2.840.114 [id number] Univers 00:00:00 00:00:00 Ya ROOT 350.1.13.10 ity of [place] [id number] [facility] AND JORGE [address] [facility] 2021-06-13 2021-06-13 Transition MELANIE Mejia 1.2.840.114 [id number] Univers 00:00:00 00:00:00 of Care Jared VICKERS 350.1.13.10 [place] of [place]2.[place].2.[place] [id number] [facility] [address] 2021-06-09 2021-06-12 [facility] [id number] Univers 17:51:00 12:45:00 HOWARD ity of [facility] [place] 2021-06-09 2021-06-12 [facility] 1.2.840.114 [id number] Univers 17:51:00 12:45:00 Encounter Howard RODRIGUEZ 350.1.13.10 ity of [facility] 4.2.7.2.[place] [id number] [facility] [address] 2021-06-07 2021-06-07 Outpatient R ISABEL [facility] [id number] Univers 14:50:10 23:59:00 LIBORIO rosi [facility] 2021-06-07 2021-06-07 [facility] 1.2.840.114 [id number] Univers 14:50:10 23:59:00 Encounter Liborio RODRIGUEZ 350.1.13.10 ity [facility] 4[place]2.7.2.[place] [id number] [facility] [address] [place] 2021-06-07 2021-06-07 Public Area Supervisor Alejandro, Adc Lab Main [facility] 1.2.8 40.114 [id number] Univers 15:15:00 15:30:00 Visit DollyLiborio alcala JENNIFER 350.1.13.10 ity [facility] 4.2.7.2.[place] [id number] Md dical NAL 353 [facility] 2021-06-06 2021-06-06 Office DollycariPRESBYTERIAN [facility] 1.2.840.114 [id number] Univers 11:00:00 12:16:06 Visit Liborio RODRIGUEZ 350.1.13.10 i ty of [place] [id number] Md dical NAL 044 [facility] 2021-06-06 2021-06-06 Outpatient R ISABEL [facility] [id number] Univers 11:00:00 12:16:06 LIBORIO aranda [facility] 2021-06-06 2021-06-06 Outpatient R ISABEL [facility] [id number] Univers 11:00:00 12:16:06 LIBORIO aranda [facility] 2021-06-06 2021-06-06 Outpatient R ISABEL [facility] [id number] Univers 11:00:00 12:16:06 LIBORIO aranda [facility] 2021-06-06 2021-06-06 Outpatient R ISABEL [facility] [id number] Univers 11:00:00 11:00:00 LIBORIO aranda [facility] 2021-06-06 2021-06-06 [facility] 1036 [id number] Univers 11:00:00 11:00:00 LIBORIO aranda [facility] 2021-06-06 2021-06-06 Outpatient R ISABEL [facility] [id number] Univers 11:00:00 11:00:00 LIBORIO aranda [facility] 2021-05-31 2021-05-31 [facility] 1036 [id number] Univers 15:00:00 16:12:40 LIBORIO aranda [facility] 2021-05-31 2021-05-31 Office [facility]PRES[facility] 1.2.840.114 [id number] Univers 15:00:00 16:12:40 Visit Liborio RODRIGUEZ 350.1.13.10 i ty of [place] [id number] [address] 2021-05-31 2021-05-31 [facility] [id number] Univers 15:00:00 15:00:00 LIBORIO aranda [facility] 2021-05-18 2021-05-18 [facility] 1.2.840.114 [id number] Univers 00:00:00 00:00:00 Liborio RODRIGUEZ 350.1.13.10 [place] [id number] [address] 2021-05-18 2021-05-18 [facility] 1.2.840.114 [id number] Univers 00:00:00 00:00:00 Liborio RODRIGUEZ 350.1.13.10 i [place] [id number] [address] 2021-05-18 2021-05-18 [facility] 1.2.840.114 [id number] Univers 00:00:00 00:00:00 Liborio RODRIGUEZ 350.1.13.10 i [place] [phone] Me dical NAL [address] [facility] 2021-05-18 2021-05-18 [facility] 1.2.840.114 [id number] Univers 00:00:00 00:00:00 Shiwan MULTISPEC 350.1.13.10 [place] [id number] [facility] AND [address] [facility] 2021-05-18 2021-05-18 [facility] 1.2.840.114 [id number] Univers 00:00:00 00:00:00 Shiwan MULTISPEC 350.1.13.10 [place] [phone] [facility] AND [address] [facility] 2021-05-17 2021-05-17 Public Area Supervisor Alejandro, Simi [facility] 1.2.8 40.114 [id number] Univers 14:15:00 14:30:00 Visit Maral Garsia 350.1.13.10 [place] [id number] Md dical NAL [address] [facility] 2021-05-17 2021-05-17 Outpatient R SAYRA [facility] [id number] Univers 14:15:00 14:15:00 FELIPAITHA ity of [facility] 2021-05-17 2021-05-17 Orders Doctor PULLIAM 1.2.840.114 [id number] Univers 00:00:00 00:00:00 Only Unassigned, TOYA 350.1.13.10 ity of [place] [facility] 4.2.7.2.686 Adelso as [id number] [facility] [address] 2021-05-16 2021-05-16 Office [facility] 1.2.840.114 [id number] Univers 15:00:00 16:55:16 Visit Jaxon TREJO 350.1.13.10 i ty [place] [id number] [facility] [address] 2021-05-16 2021-05-16 Outpatient R DANILO [facility] [id number] Univers 15:00:00 16:55:16 JAXON aranda [facility] 2021-05-16 2021-05-16 Outpatient R DANILO [facility] [id number] Univers 15:00:00 15:00:00 JAXON aranda [facility] 2021-05-12 2021-05-12 Transition MELANIE Ty 1.2.840.114 [id number] Univers 00:00:00 00:00:00 of Care Nydia VICKERS 350.1.13.10 it y of [place] [id number] [facility] [address] 2021-05-09 2021-05-11 Inpatient X [facility] [id number] Univers 14:54:00 15:04:00 FREDO aranda [facility] 2021-05-09 2021-05-11 [facility] Domitila Melendrez [facility] 1.2.8 40.114 [id number] Univers 14:54:00 15:04:00 Encounter Fredo Trinidad 350.1.13.10 ity of [facility] [place] [id number] [facility] [address] [place] 2021-05-05 2021-05-05 [facility] 1.2.840.114 [id number] Univers 00:00:00 00:00:00 Secure Msg Liborio RODRIGUEZ 350.1.13.10 ity of [facility] [place] [id number] Md dical NAL 044 [facility] 2021-04-13 2021-04-13 Refindy [facility] 1.2.840.114 [id number] Univers 00:00:00 00:00:00 Ya RODRIGUEZ 350.1.13.10 i ty of [facility] 4.[place] [phone] Md dical NAL 085 [facility] 2021-04-04 2021-04-04 Refill [facility] 1.2.840.114 [id number] Univers 00:00:00 00:00:00 Liborio RODRIGUEZ 350.1.13.10 i ty of [place] [id number] Md dical NAL 044 [facility] 2021-03-31 2021-03-31 [facility] 1.2.840.114 [id number] Univers 00:00:00 00:00:00 Jaxon TREJO 350.1.13.10 i ty of [facility] [place].2.[id number] [address] 2021-03-21 2021-03-21 [facility] 1.2.840.114 [id number] Univers 00:00:00 00:00:00 Shakeel RAMÍREZ 350.1.13.10 it y of MEDICINE 4.2.7.2.686 Adelso as CLINIC - [phone] [address] 2021-03-14 2021-03-14 [facility] 1.2.840.114 [id number] Univers 00:00:00 00:00:00 Jaxon TREJO 350.1.13.10 i ty of [facility] [place]2.[id number] [address] 2021-03-07 2021-03-07 Refindy [facility]PRES[facility] 1.2.840.114 [id number] Univers 00:00:00 00:00:00 Liborio RODRIGUEZ 350.1.13.10 i ty of [place] [id number] Md dical NAL 044 [facility] 2021-03-02 2021-03-02 Laboratory Only, Adc Pob2 Test [facility] 1.2 .840.114 [id number] Univers 15:45:00 15:45:00 Only Liborio Hall 350.1.13.10 ity of [facility] 4.2.[place] [id number] Md dical NAL 225 [facility] 2021-03-02 2021-03-02 Outpatient R ISABEL [facility] [id number] Univers 11:00:00 12:15:26 LIBORIO rohan [facility] 2021-03-02 2021-03-02 Outpatient R ISABEL [facility] [id number] Univers 11:00:00 11:00:00 LIBORIO rohan [facility] 2021-03-02 2021-03-02 Outpatient R ISABEL [facility] [id number] Univers 11:00:00 11:00:00 LIBORIO rohan [facility] 2021-03-02 2021-03-02 Orders Doctor REYES 1.2.840.114 [id number] Univers 00:00:00 00:00:00 Only Unassigned, TOYA 350.1.13.10 ity of [facility] 4.2.7.2.686 [place] as [id number] [facility] [address] 2021-02-15 2021-02-15 Office [facility] 1.2.840.114 [id number] Univers 13:30:00 13:45:00 Visit Jaxon TREJO 350.1.13.10 i ty [facility] [place].2.[place] [id number] [facility] [address] 2021-02-15 2021-02-15 [facility] [id number] Univers 13:30:00 13:30:00 JAXONRAVEN aranda [facility] 2021-02-15 2021-02-15 [facility] [id number] Univers 13:30:00 13:30:00 JAXON rosi [facility] 2021-02-13 2021-02-13 Public Area Supervisor Alejandro, Adc Lab Main [facility] 1.2.8 40.114 [id number] Univers 13:40:33 13:55:33 Visit Maral Garsia 350.1.13.10 ity [facility] [place].2.[place] [id number] [address] 2021-02-13 2021-02-13 Outpatient [facility] [id number] Univers 13:45:00 13:45:00 RKISHNAMarcelo ity of [facility] [place] 2021-02-13 2021-02-13 [facility] 1.2.840.114 [id number] Univers 00:00:00 00:00:00 Shakeel PRIMARY 350.1.13.10 it y of [place] [id number] Md dical [address] [place] 2021-02-03 2021-02-03 Outpatient R YA QUINTANA [facility] [id number] Univers 11:30:00 12:19:04 YA QUINTANA i ty of [facility] [place] 2021-02-03 2021-02-03 Office Bairon [facility] 1.2.840.114 [id number] Univers 11:15:56 12:19:04 Visit Ya RODRIGUEZ 350.1.13.10 i ty of [facility] 4.2.7.2.[place] [id number] Md dical NAL 085 [facility] 2021-02-02 2021-02-02 Public Area Supervisor 2, Adc Lab [facility] 1.2.840.114 [id number] Univers 14:19:44 16:42:57 Visit Liborio Hall 350.1.13.10 ity of [facility] 4.2.7.2.[place] [phone] Md dical NAL 353 [facility] 2021-02-02 2021-02-02 Public Area Supervisor 2, [facility] 1.2.840.114 [id number] Univers 14:19:44 14:34:44 Visit Liborio Hall 350.1.13.10 ity of [facility] 4.2.7.2.[place] [id number] Md dical NAL 353 [facility] 2021-02-02 2021-02-02 Outpatient Ab HALL [facility] [id number] Univers 14:30:00 14:30:00 LIBORIO aranda [facility] 2021-02-02 2021-02-02 Outpatient Ab HALL [facility] [id number] Univers 13:20:00 14:20:07 LIBORIO aranda [facility] 2021-02-02 2021-02-02 Office [facility] 1.2.840.114 [id number] Univers 13:05:13 14:20:07 Visit Liborio JENNIFER 350.1.13.10 i ty of [place].2.[place] [phone] [address] 2021-02-02 2021-02-02 [facility] [place] [facility] 1.2.840.114 [id number] Univers 00:00:00 00:00:00 Aubrie Y HEALTH 350.1.13.10 i ty of CL[place] [id number] [facility] [address] 2021-02-01 2021-02-01 Out[facility] [id number] Univers 09:03:31 23:59:00 AUBRIE itrohan [facility] 2021-02-01 2021-02-01 [facility] [id number] Univers 09:03:31 23:59:00 AUBRIE ity [facility] 2021-02-01 2021-02-01 [facility] 1.2.840.114 [id number] Univers 09:00:00 23:59:00 Encounter Aubrie Y HEALTH 350.1.13.10 ity of [place] 4[place] [id number] [facility] [address] 2021-01-23 2021-01-23 Outpatient R ETHAN [facility] [id number] Univers 15:24:58 23:59:00 LUZMA aranda [facility] 2021-01-23 2021-01-23 [facility], [facility] 1.2.840.114 [id number] Univers 15:15:00 23:59:00 Encounter Luzma RODRIGUEZ 350.1.13.10 it[place] [id number] [facility] [address] 2021-01-23 2021-01-23 Outpatient R ETHAN [facility] [id number] Univers 14:20:00 16:21:39 LUZMA leanderrohan [facility] 2021-01-23 2021-01-23 Office [facility] 1.2.840.114 [id number] Univers 14:19:39 16:21:39 Visit Luzma RODRIGUEZ 350.1.13.10 ity [facility] [place]2.[place] [phone] Md dical [facility] 231 [facility] 2021-01-23 2021-01-23 Orders Doctor REYES 1.2.840.114 [id number] Univers 00:00:00 00:00:00 Only Unassigned, TOYA 350.1.13.10 ity of [place] [facility] 4.2.7.2.686 [place] as [id number] [address] 2021-01-15 2021-01-15 Emergency X Jo-Ann WHITEHEAD [facility] ERT [id number] Univers 15:11:00 19:02:00 ity [facility] 2021-01-15 2021-01-15 Emergency Jo-Ann Whitehead [facility] 1.2.840.114 [id number] Univers 15:11:00 19:02:00 Dianna RODRIGUEZ 350.1.13.10 i ty [facility] 4.2.7.2.[place] [id number] [address] 2021-01-09 2021-01-09 Emergency X NOHEMY [facility] E[facility] [id number] Univers 09:42:00 11:39:00 ELSY aranda [facility] 2021-01-09 2021-01-09 Emergency [facility] 1.2.840.114 [id number] Univers 09:42:00 11:39:00 Elsy RODRIGUEZ 350.1.13.10 ity [facility] 4[place]2.7.2.[place] [id number] [address] 2020-12-20 2020-12-20 Outpatient R DANILO [facility] [id number] Univers 11:15:00 11:15:00 JAXON aranda [facility] 2020-12-20 2020-12-20 Office Sheldon, [facility] 1.2.840.114 [id number] Univers 10:07:43 10:22:43 Visit Jaxon TREJO 350.1.13.10 i ty of [place]2.[place] [id number] [facility] [address] 2020-12-19 2020-12-19 Public Area Supervisor Simi Allen Lab Main [facility] 1.2.8 40.114 [id number] Univers 14:04:03 14:19:03 Visit Maral Garsia 350.1.13.10 ity of [place] [phone] Md dical [address] 2020-12-19 2020-12-19 Outpatient R SAYRA [facility] [id number] Univers 14:15:00 14:15:00 MARAL ity of [facility] 2020-12-19 2020-12-19 Orders Doctor REYES 1.2.840.114 [id number] Univers 00:00:00 00:00:00 Only Unassigned, TOYA 350.1.13.10 ity of [place] [facility] 4.2.7.2.686 [place] as [id number] [facility] [address] 2020-12-18 2020-12-18 Refindy Crystal [facility] 1.2.840.114 [id number] Univers 00:00:00 00:00:00 Art MULTISPEC 350.1.13.10 ity of [place]2.7.2.[place] C[place] [id number] [facility] AND [address] [facility] 2020-12-18 2020-12-18 Refindy Crystal [facility] 1.2.840.114 [id number] Univers 00:00:00 00:00:00 Art MULTISPEC 350.1.13.10 ity of [place].2.7.2.[place] [id number] [facility] AND [address] DIABETES CLINIC 2020-12-08 2020-12-08 Ancillary Therapist, [facility] 1.2.840.114 [id number] Univers 10:23:30 11:23:30 Visit Art Crystal [place] 350.1. 13.10 ity of [place] [id number] [facility] 296 [facility] 2020-12-08 2020-12-08 Public Area Supervisor Lab, Ang - Db [facility] 1.2.840.1 14 [id number] Univers 08:46:42 09:01:42 Visit Satnam [facility] 350.1.13.10 ity of [place] 4.2.7.2.686 [place] as Neno?Blea [id number] [facility] 353 [facility] Office [facility] 2020-12-08 2020-12-08 Outpatient R [facility] [id number] Univers 08:45:00 08:45:00 ity of [facility] [place] 2020-12-06 2020-12-06 Ancillary Therapist, [facility] 1.2.840.114 [id number] Univers 10:31:58 15:48:59 Visit Art Crystal [place] 350.1. 13.10 ity of [place].7.2.[place] Profess[place] [id number] [address] 2020-12-06 2020-12-06 Outpatient R SATNAM [facility] [id number] Univers 14:30:00 14:59:05 [facility] 2020-12-06 2020-12-06 Office [facility] 1.2.840.114 [id number] Univers 14:17:11 14:59:05 Visit [facility] 350.1.13.10 it y of [facility] 4.2.7.2.686 [place] as NENO?BLEA [id number] [facility] 220 [facility] 2020-12-06 2020-12-06 Out[facility] [id number] Univers 14:30:00 14:30:00 [facility] 2020-12-06 2020-12-06 [facility] [id number] [facility] 10:00:00 10:00:00 MAGDALENAAMMED ity o f [facility] [place] 2020-12-01 2020-12-01 Ancillary Therapist, [facility] 1.2.840.[id number] [facility] 10:32:58 11:17:49 Visit Art Crystal 350.1. 13.10 ity of [place] [id number] Md dical nal 296 [facility] 2020-12-01 2020-12-01 Refindy [facility] 1.2.121.[id number] [facility] 00:00:00 00:00:00 Ramon Mckinley PRIMARY 350.1.13.10 i ty of [place] 4[place]2.[place] [id number] Md dical [address] [place] 2020-11-29 2020-11-29 Ancillary Therapist, [facility] 1.2.840.[id number] [facility] 10:28:44 15:02:28 Visit Art Crystal 350.1. 13.10 ity of [place] [phone] Md dical nal 296 [facility] 2020-11-22 2020-11-22 Ancillary Therapist, [facility] 1.2.840.[id number] [facility] 11:05:11 13:42:42 Visit Art Crystal 350.1. 13.10 ity of [place].2.[place] [id number] Md dical nal 296 [facility] 2020-11-20 2020-11-20 [facility] 1.2.840.[id number] [place] [address] 00:00:00 00:00:00 Jaxon TREJO 350.1.13.10 i ty of [place].2.[place] [id number] [address] 2020-11-20 2020-11-20 Refill [facility] 1.2.840.114 [id number] Univers 00:00:00 00:00:00 Jaxon NEIL 350.1.13.10 i ty of [facility] [place].7.2.[place] [id number] [address] 2020-11-19 2020-11-19 [facility] 1.2.840.114 [id number] Univers 00:00:00 00:00:00 Jaxon NEIL 350.1.13.10 i ty of [facility] 4.2.7.2.[place] [id number] [address] 2020-11-19 2020-11-19 [facility] 1.2.840.114 [id number] Univers 00:00:00 00:00:00 Shakeel PRIMARY 350.1.13.10 it y of [place] 4[place].2.[place] 856.7915204 Md dical [address] [place] 2020-11-19 2020-11-19 [facility] 1.2.840.[id number] [place] [address] 00:00:00 00:00:00 Jaxon NEIL 350.1.13.10 i ty of [facility] 4.2.7.2.[place] [id number] [address] 2020-11-17 2020-11-17 Ancillary Therapist, Adc Pulmonary [facility] 1.2.840.114 [id number] Univers 10:21:38 11:21:38 Visit Art Crystal 350.1. 13.10 ity of [place] [phone] Me dical nal 296 [facility] 2020-11-10 2020-11-10 Ancillary Therapist, Adc Pulmonary [facility] 1.2.840.[id number] [facility] 10:19:13 13:22:42 Visit Art Crystal 350.1. 13.10 ity of [place] [id number] Md dical nal 296 [facility] 2020-11-08 2020-11-08 Office [facility] 1.2.840.114 [id number] Univers 08:58:37 11:43:57 Visit Liborio Rodriguez 350.1.13.10 i ty of [place] 4[place]2.7.2.[place] [phone] Md dical nal 044 [facility] 2020-11-08 2020-11-08 Office [facility] 1.2.840.[id number] [facility] 08:58:37 11:43:57 Visit Liborio Rodriguez 350.1.13.10 i ty of [place] 4[place]2.[place].2.[place] [phone] Md dical nal 044 [facility] 2020-11-08 2020-11-08 Ancillary TherapistSimi [facility] 1.2.840.114 [id number] Univers 10:29:32 11:43:37 Visit Art Crystal 350.1. 13.10 ity of [place] [id number] [facility] 296 [facility] 2020-11-08 2020-11-08 Office [facility] 1.2.840.114 [id number] Univers 10:08:04 10:08:11 Visit Liborio Rodriguez 350.1.13.10 i ty of [place] 4[place]2.[place].2.[place] [phone] Md dical nal [address] [place] [address] 2020-11-08 2020-11-08 Office [facility] 1.2.840.114 [id number] Univers 10:08:04 10:08:11 Visit Liborio Rodriguez 350.1.13.10 i ty of [place] 4[place]2.[place].2.[place] [id number] [address] 2020-11-08 2020-11-08 Outpatient R ISABEL [facility] [id number] Univers 09:00:00 09:00:00 LIBORIO aranda of [facility] 2020-11-04 2020-11-04 Outpatient R KIRK [facility] [id number] Univers 12:00:00 12:00:00 SAM ity of [facility] 2020-11-04 2020-11-04 Public Area Supervisor Alejandro, [facility] Main [facility] 1.2.8 40.114 [id number] Univers 11:11:44 11:26:44 Visit Sam Bradley 350.1.13.10 ity of [place] [id number] Md dical nal 353 [facility] 2020-11-04 2020-11-04 Public Area Supervisor Alejandro, [facility] Main [facility] 1.2.8 40.114 [id number] Univers 11:11:44 11:26:44 Visit Sam Bradley 350.1.13.10 ity of [place] [phone] Md dical [facility] 353 [facility] 2020-11-04 2020-11-04 Ancillary Therapist, [facility] 1.2.840.114 [id number] Univers 09:52:53 10:52:53 Visit Art Crystal 350.1. 13.10 ity of [place].2.[place] [phone] Md dical [facility] 296 [facility] 2020-11-04 2020-11-04 Outpatient R BONILLA [facility] [id number] Univers 10:00:00 10:00:00 ART carlos [facility] 2020-11-04 2020-11-04 Orders Doctor REYES 1.2.840.114 [id number] Univers 00:00:00 00:00:00 Only Unassigned, TOYA 350.1.13.10 ity of [place] [facility]PITAL 4.2.7.2.686 [place] as [id number] [address] 2020-11-04 2020-11-04 Orders Doctor REYES 1.2.840.114 [id number] Univers 00:00:00 00:00:00 Only Unassigned, TOYA 350.1.13.10 ity of [place] [facility]PITAL 4.2.7.2.686 Ad[place] as [id number] [facility] [address] 2020-11-03 2020-11-03 Letter Sophia [facility] 1.2.840.114 [id number] Univers 00:00:00 00:00:00 (Out) , [facility] 350.1.13.10 i ty of CLINICS 4[place]2.[place].2.[place] 574.9718055 [facility] [address] 2020-11-01 2020-11-01 Ancillary Therapist, [facility] [place] 1.2.840.114 [id number] Univers 10:07:19 11:07:19 Visit Bonilla Art Jayden Rodriguez 350.1. 13.10 ity of [place] [phone] Md dical nal 296 [facility] 2020-10-28 2020-10-28 Telephone Kenneth [facility] 1.2.060.552 [id number] Univers 00:00:00 00:00:00 Summer Rodriguez 350.1.13.10 i ty of [place] 4[place] 091.4837453 Md dical nal 296 [facility] 2020-10-25 2020-10-25 Ancillary Therapist, [facility] 1.2.840.[id number] [facility] 10:08:08 13:18:39 Visit Art Crystal 350.1. 13.10 ity of [place] 4[place]2.[place].2.[place] [phone] Md dical nal 296 [facility] 2020-10-21 2020-10-21 Public Area Supervisor Alejandro, [facility] Main [facility] 1.2.8 40.114 [id number] Univers 12:38:49 12:53:49 Visit Liborio Hall 350.1.13.10 ity of [place] 4.2.7.2.[place] [phone] Md dical nal 353 [facility] 2020-10-21 2020-10-21 Office Isabel [facility] 1.2.840.114 [id number] Univers 10:31:03 12:29:56 Visit Liborio Rodriguez 350.1.13.10 i ty of [place] 4[place]2.[place].2.[place] [id number] Md dical nal [address] [place] [address] 2020-10-21 2020-10-21 Outpatient R ISABEL [facility] [id number] Univers 10:40:00 10:40:00 LIBORIO rosi [facility] 2020-10-21 2020-10-21 [facility] 1.2.840.114 [id number] Univers 00:00:00 00:00:00 Shakeel PRIMARY 350.1.13.10 it y of [place] [phone] [address] 2020-10-21 2020-10-21 Refindy [facility] 1.2.840.114 [id number] Univers 00:00:00 00:00:00 Liborio Rodriguez 350.1.13.10 i ty of [place] [id number] [address] 2020-10-21 2020-10-21 Refill [facility] 1.2.840.114 [id number] Univers 00:00:00 00:00:00 Shakeel FAMILY 350.1.13.10 it y of MEDICINE 4.2.7.2.686 [place] as CLINIC - [phone] [address] 2020-10-21 2020-10-21 [facility]ill [facility] 1.2.840.114 [id number] Univers 00:00:00 00:00:00 Shakeel PRIMARY 350.1.13.10 it y of [place]2.7.2.[place] [phone] Md dic[address] 2020-10-21 2020-10-21 Refindy [facility] 1.2.840.114 [id number] Univers 00:00:00 00:00:00 Liborio Rodriguez 350.1.13.10 i ty of [place] 4[place] [phone] Me dical nal 044 [facility] 2020-10-18 2020-10-19 Ancillary Therapist, [facility] Pulmonary [facility] 1.2.840.114 [id number] Univers 13:00:21 07:46:33 Visit Art Crystal 350.1. 13.10 ity of [place] [phone] [facility] 296 [facility] 2020-10-18 2020-10-18 Outpatient R BONILLA [facility] [id number] Univers 13:00:00 13:00:00 MOHAMMED ity o f [facility] 2020-10-18 2020-10-18 Orders Doctor REYES [id number] Univers 00:00:00 00:00:00 Only Unassigned, TOYA 350.1.13.10 ity of [place] [facility] 4.2.7.2.686 Adelso as [phone] [facility] [address] [place] 2020-10-17 2020-10-17 Pre Visit Tim [facility] 1.2.000.530 [id number] Univers 00:00:00 00:00:00 Outreach Shakeel Rodriguez 350.1.13.10 [place] [phone] [facility] 044 [facility] 2020-10-12 2020-10-12 Outpatient R DADA SANDHU [facility] [id number] Univers 15:00:00 15:00:00 ity of [facility] [place] 2020-10-12 2020-10-12 Telephone [place], CARLOSIT 1.2.840.114 [id number] Univers 00:00:00 00:00:00 Nephrology [facility] 350.1.13.10 ity of [facility] [place] [phone] [facility] [address] [place] 2020-10-10 2020-10-10 Public Area Supervisor Alejandro, Simi Lab Main [facility] 1.2.8 40.114 [id number] Univers 10:13:27 10:28:27 Visit Shakeel Burton 350.1.13.10 [place] [phone] Md dical [facility] [address] 2020-10-10 2020-10-10 Outpatient R TIM [facility] [id number] Univers 10:00:00 10:00:00 SHAKEEL ity [facility] 2020-10-05 2020-10-05 Telephone NILDA Martinez 1.2.840.114 [id number] Univers 00:00:00 00:00:00 [facility] 350.1.13.10 [facility] [place] [phone] [place] [address] [address] 2020-09-29 2020-09-29 Public Area Supervisor Draw, Clc[facility] Lab [facility] 1.2.8 40.114 [id number] Univers 16:38:25 16:53:25 Visit [facility] Center 350.1.13.10 ity [facility] 4.2.7.2.686 [place] [phone] [place] [address] [address] Office Building 2020-09-29 2020-09-29 Outpatient Ab HO [facility] [id number] Univers 15:00:00 15:00:00 [facility] 2020-09-29 2020-09-29 Outpatient Ab HO [facility] [id number] Univers 15:00:00 15:00:00 [facility] 2020-09-27 2020-09-27 Outpatient Ab HO [facility] [id number] Univers 11:00:00 11:00:00 IVELISSE [facility] 2020-09-27 2020-09-27 Outpatient Ab HO [facility] [id number] Univers 11:00:00 11:00:00 [facility] 2020-09-25 2020-09-25 Telephone Tim [facility] 1.2.124.235 [id number] Univers 00:00:00 00:00:00 Shakeel [facility] 350.1.13.10 it y of MEDICINE 4.2.7.2.686 [place] as CLINIC - [phone] [address] 2020-09-21 2020-09-21 Office [facility] 1.2.840.114 [id number] Univers 10:53:17 11:08:17 Visit Jaxon TREJO 350.1.13.10 i ty of [facility] 4.[place].7.2.686 [place] [phone] [address] 2020-09-21 2020-09-21 [facility] [id number] Univers 11:00:00 11:00:00 JAXON aranda [facility] 2020-09-02 2020-09-02 Refill [facility] 1.2.840.114 [id number] Univers 00:00:00 00:00:00 Jaxon TREJO 350.1.13.10 i ty of [facility] 4.[place].7.2.686 [place] [phone] [address] 2020-08-29 2020-08-29 Office Chan [facility] 1.2.909.482 [id number] Univers 09:06:54 10:22:12 Visit Fady Tinajero 350.1.13.10 ity of NATIONAL 4.2.7.2.686 [place] BANK [phone] [facility] [address] 2020-08-29 2020-08-29 Office Chan, [facility] 1.2.726.469 [id number] Univers 09:06:54 10:22:12 Visit Fady Y 350.1.13.10 ity of NATIONAL 4.2.7.2.686 [place] BANK [phone] [facility]. [address] 2020-08-29 2020-08-29 Out[facility] [id number] Univers 09:00:00 09:00:00 LETITIARudolph rosi [facility] 2020-08-29 2020-08-29 Refill [facility] 1.2.840.114 [id number] Univers 00:00:00 00:00:00 Jaxon TREJO 350.1.13.10 i ty of [facility] [facility] 4.2.7.2.686 [place] [phone] [facility] [address] 2020-08-24 2020-08-24 Public Area Supervisor Alejandro, Simi Lab Main [facility] 1.2.8 40.114 [id number] Univers 11:42:16 11:57:16 Visit Shakeel Burton 350.1.13.10 ity [facility] 4.2.7.2.[place] [phone] Md dical nal 353 [facility] 2020-08-24 2020-08-24 Outpatient R TIM [facility] [id number] Univers 11:45:00 11:45:00 SHAKEEL ity [facility] 2020-08-20 2020-08-20 Refindy [facility] 1.2.840.114 [id number] Univers 00:00:00 00:00:00 Lisandra PRIMARY 350.1.13.10 it y of CARE 4[place].2.[place] [phone] Md dical [address] 2020-08-17 2020-08-17 [facility] 1.2.840.114 [id number] Univers 00:00:00 00:00:00 Jaxon TREJO 350.1.13.10 i ty of [facility] 4.2.7.2.[place] [phone] [address] 2020-08-15 2020-08-15 Reggie [facility] 1.2.840.114 [id number] Univers 00:00:00 00:00:00 Shakeel PRIMARY 350.1.13.10 it y of CARE 4.2.7.2.[place] [phone] Md dical [address] 2020-08-15 2020-08-15 Reggie [facility] 1.2.840.114 [id number] Univers 00:00:00 00:00:00 Jaxon TREJO 350.1.13.10 i ty of [facility] 4.2.7.2.[place] [id number] [address] 2020-08-08 2020-08-08 Reggie Burton [facility] 1.2.840.114 [id number] Univers 00:00:00 00:00:00 Shakeel FAMILY 350.1.13.10 it y of MEDICINE 4.2.7.2.686 [place] CLINIC - [phone] [address] 2020-08-06 2020-08-06 Orders Doctor REYES 1.2.840.114 [id number] Univers 00:00:00 00:00:00 Only Unassigned, TOYA 350.1.13.10 ity of [place] [facility] 4.2.7.2.686 [place] as [phone] [address] 2020-08-05 2020-08-05 Outpatient R LIO [facility] [id number] Univers 09:30:00 09:30:00 LEXI aranda [facility] 2020-08-04 2020-08-04 Office Bairon [facility] 1.2.840.114 [id number] Univers 11:20:54 11:52:00 Visit Ya Rodriguez 350.1.13.10 i ty [facility] 4.2.7.2.[place] [phone] Md dical [address] 2020-08-04 2020-08-04 Outpatient R YA QUINTANA [facility] [id number] Univers 11:30:00 11:30:00 YA QUINTANA i ty [facility] 2020-08-02 2020-08-02 [facility]ill [facility] 1.2.840.114 [id number] Univers 00:00:00 00:00:00 Shakeel FAMILY 350.1.13.10 it y of MEDICINE 4.2.7.2.686 [place] CLINIC - [phone] [address] 2020-07-29 2020-07-29 Outpatient R DANILO [facility] [id number] Univers 12:30:00 12:30:00 JAXON aranda [facility] 2020-07-29 2020-07-29 Public Area Supervisor Alejandro, Simi Lab Main [facility] 1.2.8 40.114 [id number] Univers 11:02:03 11:17:03 Visit Pamela Carrascoraven Rodriguez 350.1.13.10 ity of [place].7.2.[place] [phone] Md dical [place] [address] [address] [facility] 2020-07-29 2020-07-29 Telephone [facility] 1.2.759.111 [id number] Univers 00:00:00 00:00:00 Jaxon TREJO 350.1.13.10 i ty of [facility] 4.[place].7.2.[place] [phone] [facility] [address] 2020-07-27 2020-07-27 Outpatient [facility] [id number] Univers 11:00:00 11:00:00 JAXON aranda [facility] 2020-07-27 2020-07-27 Office [facility] 1.2.840.114 [id number] Univers 10:30:35 10:45:35 Visit Jaxon TREJO 350.1.13.10 i ty of [facility] 4.2.7.2.[place] [id number] [facility] [address] 2020-07-22 2020-07-22 Orders Doctor REYES 1.2.840.114 [id number] Univers 00:00:00 00:00:00 Only Unassigned, TOYA 350.1.13.10 ity of [place] [facility] 4.2.7.2.686 [place] as [phone] [facility] [address] 2020-07-12 2020-07-12 Orders Doctor REYES 1.2.840.114 [id number] Univers 00:00:00 00:00:00 Only Unassigned, TOYA 350.1.13.10 ity of [place] [facility]OSPITAL 4.2.7.2.686 [place] as [phone] [facility] [address] 2020-07-05 2020-07-05 Outpatient R LIO [facility] [id number] Univers 09:30:00 09:30:00 LEXI aranda [facility] 2020-07-01 2020-07-01 Orders Doctor REYES 1.2.840.114 [id number] Univers 00:00:00 00:00:00 Only Unassigned, TOYA 350.1.13.10 ity of [place] [facility]OSPITAL 4.2.7.2.686 [place] as [id number] [facility] [address] 2020-06-29 2020-06-29 Reggie Barreto [facility] 1.2.840.114 [id number] Univers 00:00:00 00:00:00 Bartolo PRIMARY 350.1.13.10 it y of CARE [place].2.[place] [phone] Md dical [address] 2020-06-18 2020-06-18 Patient Tim [facility] 1.2.840.114 [id number] Univers 00:00:00 00:00:00 Secure Msg Shakeel FAMILY 350.1.13.10 ity of MEDICINE 4.2.7.2.686 [place] CLINIC - [phone] [facility] 311 [facility] 2020-06-17 2020-06-17 Orders Doctor REYES 1.2.840.114 [id number] Univers 00:00:00 00:00:00 Only Unassigned, TOYA 350.1.13.10 ity of [place] [facility]OSPITAL 4.2.7.2.686 [place] as [phone] [facility] [address] 2020-06-15 2020-06-15 Public Area Supervisor [facility] 1.2.840.114 [id number] Univers 10:32:30 10:41:36 Visit Sandra Kuhn [facility] 350.1.13.10 ity of CLINICS 4.2.7.2.[place] [id number] [facility] [address] 2020-06-15 2020-06-15 Office Hattie [facility] 1.2.440.818 [id number] Univers 09:26:13 09:56:13 Visit [facility] 350.1.13.10 ity of CLINICS 4.2.7.2.[place] [phone] [facility] [address] 2020-06-15 2020-06-15 Outpatient R HATTIE [facility] [id number] Univers 09:30:00 09:30:00 LYNNYAAb [facility] 2020-06-15 2020-06-15 Outpatient R BREANNANathan, [facility] [id number] Univers 09:30:00 09:30:00 SANDRA ity [facility] 2020-06-14 2020-06-14 Outpatient R VACA [facility] [id number] Univers 09:00:00 09:00:00 LEXI y [facility] 2020-06-14 2020-06-14 Reggie Burton [facility] 1.2.840.114 [id number] Univers 00:00:00 00:00:00 Shakeel RAMÍREZ 350.1.13.10 it y of MEDICINE 4.2.7.2.686 [place] CLINIC - [phone] [address] 2020-06-08 2020-06-08 Outpatient R DANILO [facility] [id number] Univers 14:15:00 14:15:00 JAXON [facility] 2020-06-08 2020-06-08 Ancillary Lucía Vegas [facility] 1.2.840. 114 [id number] Univers 13:12:02 13:57:02 Visit Tamiko Aceves 350.1.13.1 0 ity of [facility] 4.2.7.2.[place] [phone] [facility] [address] 2020-06-08 2020-06-08 Office Danilo [facility] 1.2.840.114 [id number] Univers 13:12:26 13:27:26 Visit aJxon TREJO 350.1.13.10 i ty of [facility] 4.2.7.2.686 [place] 395.8546337 [facility] [address] 2020-06-08 2020-06-08 Orders Doctor REYES 1.2.840.114 [id number] Univers 00:00:00 00:00:00 Only Unassigned, TOYA 350.1.13.10 ity of [place] [facility] 4.2.7.2.686 [place] as [phone] [facility] [address] 2020-05-25 2020-05-25 Office NILDA Palacios 1.2.803.126 [id number] Univers 13:57:31 15:41:39 [facility] 350.1.13.10 i ty of [facility] 4.2.7.2.686 [place] [phone] [facility] [address] 2020-05-25 2020-05-25 Outpatient R PHILIP [facility] [id number] Univers 14:00:00 14:00:00 MARLEN aranda [facility] 2020-05-24 2020-05-24 Outpatient R LAWRENCE [facility] [id number] Univers 11:45:00 11:45:00 JAYNE aranda [facility] 2020-05-24 2020-05-24 Public Area Supervisor Alejandro, [facility] Main [facility] 1.2.8 40.114 [id number] Univers 10:11:45 10:26:45 Visit Jayne Amos 350.1.13.10 ity of [place].2.[place] [phone] Md dical [facility] 353 [facility] 2020-05-24 2020-05-24 Orders Doctor REYES 1.2.840.114 [id number] Univers 00:00:00 00:00:00 Only Unassigned, TOYA 350.1.13.10 ity of [place] [facility] 4.2.7.2.686 [place] as [phone] [facility] [address] 2020-05-23 2020-05-23 Office NILDA Giles 1.2.052.377 [id number] Univers 09:33:55 10:59:33 Visit Fady Tinajero 350.1.13.10 ity of [facility] 4.2.7.2.686 [place] BANK [phone] [facility] BLDG. [address] 2020-05-23 2020-05-23 Outpatient R CHAN [facility] [id number] Univers 09:45:00 09:45:00 FADY aranda [facility] 2020-05-19 2020-05-19 Telephone NILDA Carrasco 1.2.840.114 [id number] Univers 00:00:00 00:00:00 Jaxon Y 350.1.13.10 it y of NATIONAL 4.2.7.2.686 [place] as BANK [phone] [facility] [address] 2020-05-18 2020-05-18 Office Lydia [facility] 1.2.840.114 [id number] Univers 08:32:46 09:18:28 Visit Trish Tinajero 350.1.13.10 it y of NATIONAL 4.2.7.2.686 [place] BANK [phone] [facility] [address] 2020-05-18 2020-05-18 [facility] [id number] Univers 08:45:00 08:45:00 TRISH ity of [facility] [place] 2020-05-13 2020-05-13 [facility] 1.2.840.114 [id number] Univers 12:40:28 23:59:00 Encounter Jaxon Rodriguez 350.1.13.10 ity [facility] [place]2.7.2.[place] [phone] [facility] [address] 2020-05-13 2020-05-13 Outpatient R [facility] [id number] Univers 00:00:00 00:00:00 JAXON aranda of [facility] [place] 2020-05-11 2020-05-11 Telephone Jeronimodelroy [facility] 1.2.840.114 [id number] Univers 00:00:00 00:00:00 [facility] 350.1.13.10 i ty of [facility] 4.2.7.2.[place] [phone] [facility] [address] 2020-04-28 2020-04-28 Outpatient R FARZAD [facility] [id number] Univers 14:50:00 14:50:00 OMAR ity of [facility] [place] 2020-04-28 2020-04-28 Office [facility] 1.2.840.114 [id number] Univers 09:55:56 10:25:56 Visit Jaxon TREJO 350.1.13.10 i ty of [facility] 4.2.7.2.[place] [id number] [facility] [address] 2020-04-27 2020-04-27 Public Area Supervisor Alejandro, Adc Lab Main [facility] 1.2.8 40.114 [id number] Univers 12:56:14 13:11:14 Visit Kirk Cervanteston 350.1.13.10 ity of [place].2.[place] [phone] Md dical nal 353 [facility] 2020-04-27 2020-04-27 Outpatient R SAM [facility] [id number] Univers 13:00:00 13:00:00 KIRK [facility] 2020-04-18 2020-04-18 Refill Doctor [facility] 1.2.840.114 [id number] Univers 00:00:00 00:00:00 Unassigned, PRIMARY 350.1.13.10 ity of [place] [facility] 4.2.7.2.686 [place] 326.9708935 Md dical [address] 2020-04-13 2020-04-13 Office NILDA Palacios 1.2.227.744 [id number] Univers 13:49:29 15:16:19 Visit [facility] 350.1.13.10 i ty of [facility] 4.2.7.2.[place] [phone] [facility] [address] 2020-04-13 2020-04-13 Outpatient R PHILIP [facility] [id number] Univers 14:00:00 14:00:00 [facility] 2020-04-04 2020-04-04 Telephone CARLOS PalaciosIT 1.2.840.114 [id number] Univers 00:00:00 00:00:00 [facility] 350.1.13.10 i ty of [facility] 4.2.7.2.[place] [phone] [facility] [address] 2020-04-03 2020-04-03 Outpatient R FARZAD [facility] [id number] Univers 14:30:00 14:30:00 OMAR aranda [facility] 2020-03-30 2020-03-30 Office Tim [facility] 1.2.840.114 [id number] Univers 15:03:41 15:33:41 Visit Shakeel RAMÍREZ 350.1.13.10 it y of MEDICINE 4.2.7.2.686 [place] CLINIC - [phone] [address] 2020-03-30 2020-03-30 Outpatient R BONILLA [facility] [id number] Univers 13:00:00 13:00:00 MOHAMMED ity o f [facility] [place] 2020-03-30 2020-03-30 Orders Doctor REYES 1.2.840.114 [id number] Univers 00:00:00 00:00:00 Only Unassigned, TOYA 350.1.13.10 ity of [place] [facility] 4.2.7.2.686 [place] as [phone] [facility] [address] 2020-03-24 2020-03-24 Public Area Supervisor Pcp-Lab [facility] 1.2.840.114 [id number] Univers 12:50:48 13:05:48 Visit Tim Shakeel [facility] 350.1.13.10 ity of CARE 4.2.7.2.686 [place] [facility] 522.1704037 Md dical [address] 2020-03-24 2020-03-24 Telemedici Tim [facility] 1.2.840.114 [id number] Univers 10:44:27 11:14:27 ne Visit Shakeel RAMÍREZ 350.1.13.10 i ty of MEDICINE 4.2.7.2.686 [place] CLINIC - [phone] [address] 2020-03-24 2020-03-24 Outpatient R TIM [facility] [id number] Univers 11:00:00 11:00:00 SHAKEEL ity of [facility] [place] 2020-03-24 2020-03-24 Telephone Bonilla [facility] 1.2.371.616 [id number] Univers 00:00:00 00:00:00 Art MULTISPEC 350.1.13.10 ity of [place] IALTY 4.2.7.2.686 [place] CENTER [phone] [facility] AND JORGE [address] [facility] CLINIC 2020-03-23 2020-03-23 Telephone CARLOS Palacios 1.2.840.114 [id number] Univers 00:00:00 00:00:00 [facility] 350.1.13.10 i ty of [facility] 4.2.7.2.[place] [phone] [facility] [address] 2020-03-23 2020-03-23 Telephone Philip [facility] 1.2.840.114 [id number] Univers 00:00:00 00:00:00 [facility] 350.1.13.10 i ty of [facility] 4.2.7.2.[place] [id number] [facility] [address] 2020-03-22 2020-03-22 Office NILDA Crystal 1.2.836.169 [id number] Univers 10:55:03 11:25:32 Visit [facility] 350.1.13.10 ity [facility] 4.2.7.2.[place] [phone] [facility] [address] 2020-03-22 2020-03-22 Outpatient R BONILLA [facility] [id number] Univers 11:00:00 11:00:00 [facility] aranda o f [facility] [place] 2020-03-17 2020-03-17 Office [facility] 1.2.840.114 [id number] Univers 08:07:57 09:27:51 Visit [facility] 350.1.13.10 it y of MEDICINE 4.2.7.2.686 [place] CLINIC - 527.9319843 [address] 2020-03-17 2020-03-17 Outpatient R TIM [facility] [id number] Univers 08:00:00 08:00:00 SHAKEEL aranda [facility] 2020-03-15 2020-03-15 Telephone [facility] 1.2.400.044 [id number] Univers 00:00:00 00:00:00 [facility] 350.1.13.10 it y of MEDICINE 4.2.7.2.686 [place] CLINIC - [phone] [address] 2020-03-14 2020-03-14 Public Area Supervisor Lab, [facility] [address] [facility] 1 .2.840.114 [id number] Univers 08:19:11 08:34:11 Visit Shakeel Burton 350.1.13.10 ity of MEDICINE 4.2.7.2.686 [place] CLINIC - [id number] [address] 2020-03-14 2020-03-14 Outpatient R [facility] [id number] Univers 08:15:00 08:15:00 ity of [facility] [place] 2020-03-11 2020-03-11 Telephone Tim [facility] 1..485.629 [id number] Univers 00:00:00 00:00:00 Shakeel RAMÍREZ 350.1.13.10 it y of MEDICINE 4.2.7.2.686 [place] CLINIC - [phone] [address] 2020-03-10 2020-03-10 Outpatient R [facility] [id number] Univers 08:00:00 08:00:00 ity of [facility] [place] 2020-03-02 2020-03-02 Transition Jackie Troychrystal 1.2.840.114 [id number] Univers 00:00:00 00:00:00 of Care Jaredrena Lepey 350.1.13.10 ity of [place].7.2.[place] [phone] [facility] [address] 2020-02-29 2020-03-01 [facility] 1 .2.840.114 [id number] Univers 15:42:00 17:30:00 Encounter Yevgeniy Sanchez 350.1.13.10 ity of [facility] 4.2.7.2.686 [place] [phone] [facility] [address] 2020-02-29 2020-02-29 Public Area Supervisor Lab, [facility] [address] [facility] 1 .2.840.114 [id number] Univers 07:56:25 08:11:25 Visit Marlen Palacios Gigi Steeledy FAMILY 3 50.1.13.10 ity of MEDICINE 4.2.7.2.686 [place] CLINIC - [phone] [address] 2020-02-29 2020-02-29 Outpatient R PHILIP [facility] [id number] Univers 08:00:00 08:00:00 MARLEN [facility] 2020-02-24 2020-02-24 Refill Tim [facility] 1.2.840.114 [id number] Univers 00:00:00 00:00:00 Shakeel FAMILY 350.1.13.10 it y of MEDICINE 4.2.7.2.686 [place] CLINIC - [phone] [address] 2020-02-22 2020-02-22 Office NILDA Giles 1.2.434.152 [id number] Univers 09:19:01 11:19:16 Visit Letitiarudolph Tinajero 350.1.13.10 ity of NATIONAL 4.2.7.2.686 [place] BANK [phone] [facility] BLDG. [address] 2020-02-22 2020-02-22 Outpatient R CHAN [facility] [id number] Univers 09:30:00 09:30:00 FADY [facility] 2020-02-22 2020-02-22 Patient Tim PAANNIKA 1.2.840.114 [id number] Univers 00:00:00 00:00:00 Secure Msg Shakeel FAMILY 350.1.13.10 ity of MEDICINE 4.2.7.2.686 [place] CLINIC - [phone] [address] 2020-02-18 2020-02-18 Outpatient R CARMEN [facility] [id number] Univers 20:00:00 20:00:00 DAMEON [facility] 2020-02-18 2020-02-18 Public Area Supervisor Lab, Sleep JENNIFER 1.2.840.114 [id number] Univers 15:27:33 17:57:33 Visit Dameon Morales 350.1.13.10 ity of [place].2.[place] [phone] [address] 2020-02-18 2020-02-18 Pre Visit Tim [facility] 1.2.137.839 [id number] Univers 00:00:00 00:00:00 Outreach Shakeel FAMILY 350.1.13.10 i ty of MEDICINE 4.2.7.2.686 [place] CLINIC - [phone] [address] 2020-02-18 2020-02-18 Orders CARLOS Crystal 1.2.632.420 [id number] Univers 00:00:00 00:00:00 Only [facility] 350.1.13.10 ity of [place] CLINICS [place]2.[place].2.[place] [phone] [facility] [address] 2020-02-17 2020-02-17 Telephone [facility] 1.2.840.114 [id number] Univers 00:00:00 00:00:00 [facility] 350.1.13.10 i ty of [facility] [place]ICS [place] [phone] [facility] [address] 2020-02-17 2020-02-17 Refill Tim [facility] 1.2.840.114 [id number] Univers 00:00:00 00:00:00 [place] [facility] 350.1.13.10 it y of MEDICINE 4.2.7.2.686 [place] CLINIC - [phone] [address] 2020-02-17 2020-02-17 Telephone Tim [facility] [id number] Univers 00:00:00 00:00:00 [place] FAMILY 350.1.13.10 it y of MEDICINE 4.2.7.2.686 [place] CLINIC - [phone] [address] 2020-02-15 2020-02-15 Laboratory Only, Pcp Test [facility] 1.2.840. 114 [id number] Univers 09:46:28 10:01:28 Only Art Crystal [facility] PRIMARY 350.1.1 3.10 ity [place] [id number] [address] 2020-02-15 2020-02-15 Office CARLOS Momin 1.2.840.114 [id number] Univers 09:04:06 09:36:35 Visit Trish Y 350.1.13.10 it y of NATIONAL 4.2.7.2.686 [place] BANK [phone] [facility] BLDG. [address] 2020-02-15 2020-02-15 Outpatient R LYDIA [facility] [id number] Univers 09:15:00 09:15:00 TRISH ity of [facility] 2020-02-03 2020-02-03 Office Tim [facility] 1.2.840.114 [id number] Univers 08:01:06 08:59:40 Visit [place] FAMILY 350.1.13.10 it y of MEDICINE 4.2.7.2.686 [place] CLINIC - [phone] [address] 2020-02-03 2020-02-03 Outpatient R TIM [facility] [id number] Univers 08:00:00 08:00:00 SHAKEEL ity [facility] 2020-02-01 2020-02-01 Case YADI Calderon 1.2.840.114 [id number] Univers 00:00:00 00:00:00 [facility] 350.1.13.10 [place] [id number] [address] 2020-02-01 2020-02-01 Refill Tim [facility] 1.2.840.114 [id number] Univers 00:00:00 00:00:00 Shakeel FAMILY 350.1.13.10 it y of MEDICINE 4.2.7.2.686 [place] CLINIC - [id number] [address] 2020-01-26 2020-01-26 Telephone Tim [facility] 1.2.994.832 [id number] 1026 Univers 00:00:00 00:00:00 Shakeel FAMILY 350.1.13.10 it y of MEDICINE 4.2.7.2.686 [place] CL[place]IC - [id number] [address] 2020-01-25 2020-01-25 [facility] NILDA Calderon 1.2.840.114 [id number] Univers 09:56:36 23:59:00 Encounter Aubrie Y HEALTH 350.1.13.10 it[place] of CL[place]ICS [place] [id number] [facility] [address] 2020-01-25 2020-01-25 Outpatient R NIK [facility] [id number] Univers 00:00:00 00:00:00 AUBRIE ity [facility] 2020-01-25 2020-01-25 Refill Tim [facility] 1.2.840.114 [id number] Univers 00:00:00 00:00:00 Shakeel RAMÍREZ 350.1.13.10 it y of MEDICINE 4.2.7.2.686 [place] CL[place]IC - [id number] [address] 2020-01-22 2020-01-22 Office Tim [facility] 1.2.840.114 [id number] Univers 13:26:28 14:55:22 Visit Shakeel RAMÍREZ 350.1.13.10 it y of MEDICINE 4.2.7.2.686 [place] CL[place]IC - [phone] [address] 2020-01-22 2020-01-22 Outpatient R TIM [facility] [id number] Univers 13:30:00 13:30:00 SHAKEEL [facility] 2020-01-22 2020-01-22 Orders Doctor REYES 1.2.840.114 [id number] Univers 00:00:00 00:00:00 Only Unassigned, TOYA 350.1.13.10 ity of [place] [facility] 4.2.7.2.686 [place] [id number] [facility] [address] 2020-01-15 2020-01-15 Refill Doctor [facility] 1.2.840.114 [id number] Univers 00:00:00 00:00:00 Unassigned, PRIMARY 350.1.13.10 ity of [place]ARE [place] [id number] [address] 2020-01-03 2020-01-03 Refill Doctor NILDA 1.2.053.611 [id number] Univers 00:00:00 00:00:00 Unassigned, Y HEALTH 350.1.13.10 ity of [place] CL[place]ICS [place] [id number] [facility] [address] 2020-01-01 2020-01-01 Case CARLOS CrystalIT 1.2.262.590 [id number] Univers 00:00:00 00:00:00 Management Art Y HEALTH 350.1.13.10 ity of [place] CL[place]ICS [place] [id number] [place] 8[address] [place] 2019-12-30 2019-12-30 Outpatient R [facility] [id number] Univers 20:00:00 20:00:00 ity of [facility] 2019-12-30 2019-12-30 Public Area Supervisor Lab, Sleep JENNIFER 1.2.840.114 [id number] Univers 12:48:43 15:18:43 Visit Dameon Morales 350.1.13.10 ity of [place] [id number] [facility] [address] 2019-12-29 2019-12-29 Patient Doctor [facility] 1.2.840.114 [id number] Univers 00:00:00 00:00:00 Secure Msg Unassigned, FAMILY 350.1.13.10 ity of [place] MEDICINE 4.2.7.2.686 [place] CLINIC - [id number] [address] 2019-12-29 2019-12-29 [facility] 1.2.840.114 [id number] 13 Univers 00:00:00 00:00:00 Shakeel FAMILY 350.1.13.10 it y of MEDICINE 4.2.7.2.686 [place] CL[place]IC - [phone] [address] 2019-12-28 2019-12-28 Office NILDA Giles 1.2.535.942 [id number] Univers 09:08:55 10:39:29 Visit ShebaBoubacarAbi Tinajero 350.1.13.10 ity of NATIONAL 4.2.7.2.686 [place] BANK [id number] [facility] BLDG. [address] 2019-12-28 2019-12-28 Outpatient R CHAN [facility] [id number] Univers 09:15:00 09:15:00 SHEBA-HSIANG ity of [facility] 2019-12-28 2019-12-28 Orders Doctor REYES 1.2.840.114 [id number] Univers 00:00:00 00:00:00 Only Unassigned, TOYA 350.1.13.10 ity of [place] HOSPITAL 4.2.7.2.686 [place] [id number] [address] 2019-12-27 2019-12-27 Refill Doctor [facility] 1.2.840.114 [id number] Univers 00:00:00 00:00:00 Unassigned, FAMILY 350.1.13.10 ity of [place] MEDICINE 4.2.7.2.686 [place] CLINIC - [phone] [address] 2019-12-27 2019-12-27 Refill Doctor [facility] 1.2.840.114 [id number] Univers 00:00:00 00:00:00 Unassigned, PRIMARY 350.1.13.10 ity of [place] [id number] [address] 2019-12-26 2019-12-26 Outpatient R [facility] [id number] Univers 14:45:00 14:45:00 ity of [facility] [place] 2019-12-25 2019-12-25 Laboratory Only, Pcp Test [facility] 1.2.840. 114 [id number] Univers 10:09:47 10:24:47 Only Art Crystal PRIMARY 350.1.1 3.10 ity of CARE [place].2.[place] [id number] [address] 2019-12-25 2019-12-25 Outpatient R BONILLA [facility] [id number] Univers 10:15:00 10:15:00 ART aranda o f [facility] 2019-12-22 2019-12-22 Office Tim [facility] 1.2.840.114 [id number] Univers 08:06:23 09:56:50 Visit Shakeel FAMILY 350.1.13.10 it y of MEDICINE 4.2.7.2.686 [place] CLINIC - [id number] [address] 2019-12-22 2019-12-22 Outpatient R TIM [facility] [id number] Univers 08:00:00 08:00:00 SHAKEEL ity of [facility] [place] 2019-12-14 2019-12-14 [facility] 1.2.840.114 [id number] Univers 08:56:57 23:59:00 Encounter Benny [facility] 350.1.13.10 ity of CLINICS 4.2.7.2.[place] [id number] [facility] [address] 2019-12-14 2019-12-14 Outpatient R [facility] [id number] Univers 00:00:00 00:00:00 BENNY ity of [facility] [place] 2019-12-08 2019-12-08 Refill Doctor [facility] 1.2.840.114 [id number] Univers 00:00:00 00:00:00 Unassigned, PRIMARY 350.1.13.10 ity of [place]ARE [place] [id number] Md dical [address] 2019-12-03 2019-12-03 Refill Doctor [facility] 1.2.840.114 [id number] Univers 00:00:00 00:00:00 Unassigned, PRIMARY 350.1.13.10 ity of [place] CARE 4.2.[place].2.[place] [id number] Md dical [address] 2019-11-30 2019-11-30 Refill Tyrell [facility] 1.2.840.114 [id number] Univers 00:00:00 00:00:00 Tremaine PRIMARY 350.1.13.10 it y of [place] C[place].2.[place] [id number] Md dictn [address] 2019-11-27 2019-11-27 Outpatient R BARRY HINTON [facility] [id number] Univers 14:00:00 14:00:00 ity of [facility] [place] 2019-11-27 2019-11-27 Telemedici Chacha Reddy [facility] 1.2.840.114 [id number] Univers 09:00:16 09:20:16 ne Visit Barry Hinton S PRIMARY 350.1.13.10 ity of [place], [place] CARE 4.2.7.2.686 [facility] [phone] Md dictn [address] 2019-11-24 2019-11-25 Office Bong Mays UNIVERSIT 1.2.840.114 [id number] Univers 14:52:14 09:11:55 Visit Art Crystal Fatne Y HEALTH 350.1. 13.10 ity of CLINICS 4.2.[place] [id number] [facility] [address] 2019-11-24 2019-11-24 Outpatient R BONILLA [facility] [id number] Univers 15:00:00 15:00:00 ART carlos [facility] 2019-11-21 2019-11-21 Refill Doctor [facility] 1.2.840.114 [id number] Univers 00:00:00 00:00:00 Unassigned, FAMILY 350.1.13.10 ity of [place] MEDICINE 4.2.7.2.686 [place] CLINIC - [phone] [facility] 311 [facility] 2019-11-13 2019-11-14 Office Lisandra Escoto [facility] 1.2.840.114 [id number] Univers 10:58:52 07:52:19 Visit Barry Hinton S PRIMARY 350.1.13.10 ity of C[place] [id number] [facility] [address] 2019-11-13 2019-11-13 [facility] 1.2.840.114 [id number] Univers 15:12:04 23:59:00 Encounter Art Y HEALTH 350.1.13.10 ity of [place] CL[place]ICS [place] [id number] [facility] [address] 2019-11-13 2019-11-13 Outpatient R BONILLA [facility] [id number] Univers 14:30:00 14:30:00 ART carlos [facility] 2019-11-11 2019-11-11 Office CARLOS MominIT 1.2.840.114 [id number] Univers 09:25:20 10:02:09 Visit Trish Tinajero 350.1.13.10 it y of NATIONAL 4.2.7.2.686 [place] BANK [id number] [facility]. [address] 2019-11-11 2019-11-11 Outpatient R LYDIA [facility] [id number] Univers 09:30:00 09:30:00 TRISH ity [facility] 2019-11-10 2019-11-10 Office Fady Giles UNIVERS 1.2.840. 114 [id number] Univers 09:04:47 10:29:42 Visit Kelton Josh Tinajero 350.1.13.10 ity of [facility] 4.2.7.2.686 [place] BANK [id number] [facility]. [address] 2019-11-10 2019-11-10 Outpatient R KELTON [facility] [id number] Univers 09:15:00 09:15:00 JOSH ity [facility] 2019-11-10 2019-11-10 Laboratory Only, Pcp Test [facility] 1.2.840. 114 [id number] Univers 08:39:56 08:54:56 Only Art Crystal [facility] PRIMARY 350.1.1 3.10 ity of C[place] [id number] [facility] [address] 2019-11-10 2019-11-10 Transition Melanie Mejia .2.840.114 [id number] Univers 00:00:00 00:00:00 of Care Jared A Vickers 350.1.13.10 ity of [place].2.7.2.[place] [id number] [facility] [address] 2019-11-04 2019-11-07 Hospital Brett Luciano 1.2.840. 114 [id number] Univers 17:11:00 17:55:00 Encounter Dona Badillo 350.1.13.10 ity of Hospital 4.2.7.2.686 [place] [id number] [address] 2019-11-02 2019-11-02 [facility] 1.2.840.114 [id number] Univers 00:00:00 00:00:00 Bartolo FAMILY 350.1.13.10 it y of MEDICINE 4.2.7.2.686 [place] CL[place]IC - [id number] [address] 2019-11-02 2019-11-02 Refill Christian-Nwo [facility] 1.2.840.114 [id number] Univers 00:00:00 00:00:00 sa, Christian PRIMARY 350.1.13.10 ity of [place] CARE 4.2.7.2.686 [place] PAVILLION [id number] [address] 2019-10-31 2019-10-31 Outpatient R UNKNOWN, [facility] [id number] Univers 13:45:00 13:45:00 ATTENDING ity of [facility] 2019-10-28 2019-10-28 Telephone NILDA Crystal 1.2.840.114 [id number] Univers 00:00:00 00:00:00 Art Y HEALTH 350.1.13.10 ity of [place] CL[place]ICS [place] [id number] [address] 2019-10-27 2019-10-27 Outpatient R BONILLA [facility] [id number] Univers 15:00:00 15:00:00 ART ity o f [facility] 2019-10-27 2019-10-27 Telemedici NILDA Crystal 1.2.840.114 [id number] Univers 09:04:00 10:55:09 ne Visit Art Y HEALTH 350.1.13.10 ity of [place] CL[place]ICS [place] [id number] [address] 2019-10-21 2019-10-21 Office CARLOS EmanuelIT 1.2.362.337 [id number] Univers 11:27:40 12:15:39 Visit Santhisri Y HEALTH 350.1.13.10 ity of CLINICS [place]2.[place] [id number] [facility] [address] 2019-10-21 2019-10-21 Outpatient R ADELFO [facility] [id number] Univers 11:30:00 11:30:00 SANTHISRI ity of [facility] [place] 2019-10-16 2019-10-16 Ancillary Malena Medina [facility] 1 .2.840.114 [id number] Univers 10:21:55 11:01:55 Visit Angela Levy PRIMARY 350.1.13.10 ity of CARE [place]2.[place] [id number] Md dical [address] 2019-10-12 2019-10-12 Telephone Jadarandall, [facility] 1.2.840.114 [id number] Univers 00:00:00 00:00:00 Art HEALTH 350.1.13.10 ity of [place] CLINICS 4[place]2.7.2.[place] [id number] [facility] [address] 2019-10-12 2019-10-12 Orders Doctor REYES 1.2.840.114 [id number] Univers 00:00:00 00:00:00 Only Unassigned, TOYA 350.1.13.10 ity of [place] HOSPITAL 4.2.7.2.686 [place] [id number] [facility] [address] 2019-10-09 2019-10-09 Telephone CARLOS Crystal 1.2.840.114 [id number] Univers 00:00:00 00:00:00 Art HEALTH 350.1.13.10 ity of [place] CL[place]ICS [place] [id number] [address] 2019-10-08 2019-10-08 Outpatient R [facility] [id number] Univers 10:20:00 10:20:00 ity of [facility] [place] 2019-09-25 2019-09-25 Ancillary Malena Medina [facility] 1 .2.840.114 [id number] Univers 08:30:04 09:10:04 Visit Angela Levy PRIMARY 350.1.13.10 ity of CARE [place] [id number] Md darshana [address] 2019-09-25 2019-09-25 Outpatient R [facility] [id number] Univers 08:40:00 08:40:00 ity of [facility] [place] 2019-09-24 2019-09-24 Refill Negrita [facility] 1.2.280.306 [id number] Univers 00:00:00 00:00:00 Garwood FAMILY 350.1.13.10 it y of MEDICINE 4.2.7.2.686 [place] CLINIC - [phone] [address] 2019-09-23 2019-09-23 Orders Doctor REYES 1.2.840.114 [id number] Univers 00:00:00 00:00:00 Only Unassigned, TOYA 350.1.13.10 ity of [place] [facility] 4.2.7.2.686 [place] [id number] [facility] [address] 2019-09-22 2019-09-22 Office NILDA Crystal 1.2.874.517 [id number] [id number] Univers 13:53:29 14:55:31 Visit [facility] 350.1.13.10 [facility] 4.2.7.2.[place] [id number] [facility] [address] 2019-09-22 2019-09-22 Outpatient R BONILLA [facility] [id number] Univers 14:00:00 14:00:00 MOHAMMED ity o f [facility] [place] 2019-09-22 2019-09-22 Refill NILDA Crystal 1.2.420.566 [id number] Univers 00:00:00 00:00:00 [facility] 350.1.13.10 ity [facility] 4.2.7.2.[place] [id number] [facility] [address] [place] [address] 2019-09-11 2019-09-11 Office Negrita [facility] 1.2.272.567 [id number] Univers 14:00:48 14:30:48 Visit James FAMILY 350.1.13.10 it y of MEDICINE 4.2.7.2.686 [place] CLINIC - [id number] [address] 2019-09-11 2019-09-11 Outpatient R NEGRITA [facility] [id number] Univers 14:00:00 14:00:00 JAMES [facility] 2019-09-11 2019-09-11 Ancillary Malena Medina [facility] 1 .2.840.114 [id number] Univers 11:19:31 13:14:39 Visit Angela Levy PRIMARY 350.1.13.10 ity [place] C[place] [id number] [facility] [address] 2019-09-07 2019-09-07 Telemedici [facility] 1.2.840.114 [id number] Univers 09:40:00 10:00:00 ne Visit Maye PRIMARY 350.1.13.10 i ty of CARE [place].2.[place] [id number] Md dical [address] 2019-09-07 2019-09-07 Outpatient [facility] [id number] Univers 09:40:00 09:40:00 [facility] 2019-08-27 2019-08-27 Ancillary Malena Medina [facility] 1 .2.840.114 [id number] Univers 10:19:34 10:59:34 Visit Angela Levy PRIMARY 350.1.13.10 ity of C[place] [id number] Md dictn [address] 2019-08-13 2019-08-24 Ancillary Malena Medina [facility] 1 .2.840.114 [id number] Univers 10:19:36 11:06:11 Visit Angela Levy PRIMARY 350.1.13.10 ity of C[place]2.[place] [id number] [facility] [address] 2019-08-19 2019-08-19 Outpatient [facility] [id number] Univers 20:00:00 20:00:00 DAMEON [facility] 2019-08-19 2019-08-19 Public Area Supervisor Lab, Sleep JENNIFER 1.2.840.114 [id number] Univers 15:36:33 18:06:33 Visit Dameon Morales 350.1.13.10 ity of [place] [id number] Medi christa [address] 2019-08-19 2019-08-19 Orders Barry Hinton [facility] 1.2.840.114 [id number] Univers 00:00:00 00:00:00 Only S HEALTH 350.1.13.10 it y of FAM[place].2.[place] MEDICINE [id number] Med ical HOANG [address] CLINIC 2019-08-17 2019-08-17 Laboratory Only, Pcp Test [facility] 1.2.840. 114 [id number] Univers 10:01:55 10:16:55 Only Barry Hinton S PRIMARY 350.1.13.10 ity of CARE [place].2.[place] [id number] Md dical [address] 2019-08-17 2019-08-17 Outpatient R BARRY HINTON [facility] [id number] Univers 10:00:00 10:00:00 ity of [facility] 2019-07-31 2019-08-14 Office Christian Murillo [facility] 1.2.840.114 [id number] Univers 16:20:55 09:50:47 Visit Barry Hinton S PRIMARY 350.1.13.10 ity of C[place]2.[place] [id number] Md dical [address] 2019-08-13 2019-08-13 Outpatient R [facility] [id number] Univers 15:51:52 23:59:00 JAMES ity of [facility] 2019-08-13 2019-08-13 [facility] 1.2.840.114 [id number] Univers 15:51:00 23:59:00 Encounter [place] PRIMARY 350.1.13.10 ity of CARE [place].2.[place] 531.8275649 Md dical [address] 2019-08-13 2019-08-13 Office [facility] 1.2.162.880 [id number] Univers 15:47:02 16:36:56 Visit Garwood PRIMARY 350.1.13.10 it y of CARE [place]2.7.2.[place] [id number] [facility] [address] 2019-08-13 2019-08-13 Outpatient [facility] [id number] Univers 10:20:00 10:20:00 ANGELA ity of [facility] [place] 2019-08-13 2019-08-13 [facility] 1.2.840.114 [id number] Univers 00:00:00 00:00:00 Christian santiago PRIMARY 350.1.13.10 [facility] 4.2.7.2.686 [place] PAVILLION [id number] [address] 2019-08-12 2019-08-12 Outpatient R [facility] [id number] Univers 11:00:00 11:00:00 ity of [facility] 2019-08-10 2019-08-10 Office Lydia UNIVERSIT 1.2.840.114 [id number] Univers 08:55:09 09:32:07 Visit Trish Rohan 350.1.13.10 it y of NATIONAL 4.2.7.2.686 [place] BANK [phone] [facility] BLDG. [address] 2019-08-10 2019-08-10 Outpatient R LYDIA [facility] [id number] Univers 09:00:00 09:00:00 TRISH ity of [facility] 2019-08-03 2019-08-03 Outpatient R [facility] [id number] Univers 11:20:00 11:20:00 ity of [facility] 2019-07-31 2019-07-31 Outpatient R BARRY HINTON [facility] [id number] Univers 16:20:00 16:20:00 ity [facility] 2019-07-30 2019-07-30 Ancillary Malena Medina [facility] 1 .2.840.114 [id number] Univers 13:28:03 14:08:03 Visit Anglea Levy PRIMARY 350.1.13.10 ity of C[place] [id number] Md dical [address] 2019-07-28 2019-07-28 Telephone [facility] 1.2.679.708 [id number] Univers 00:00:00 00:00:00 Tremaine FAMILY 350.1.13.10 it y of [place] MEDICINE 4.2.7.2.686 [place] CLINIC - [id number] [address] 2019-07-28 2019-07-28 Telephone [facility] 1.2.357.606 [id number] Univers 00:00:00 00:00:00 Tremaine FAMILY 350.1.13.10 it y of [place] MEDICINE 4.2.7.2.686 [place] CLINIC - [id number] [address] 2019-07-22 2019-07-22 Orders Doctor REYES 1.2.840.114 [id number] Univers 00:00:00 00:00:00 Only Unassigned, TOYA 350.1.13.10 ity of [place] [facility] 4.2.7.2.686 [place] as [id number] [facility] [address] 2019-07-17 2019-07-17 Ancillary Malena Medina [facility] 1 .2.840.114 [id number] Univers 09:58:57 10:49:36 Visit Angela Levy PRIMARY 350.1.13.10 ity of C[place] 304.6314706 Md dical [address] 2019-07-17 2019-07-17 Outpatient Ab LEVY [facility] [id number] Univers 10:00:00 10:00:00 ANGELA ity of [facility] 2019-07-09 2019-07-09 Office Puthenparam UNIVERSIT 1.2.840.114 [id number] Univers 08:31:06 10:38:28 Visit Rocael sheets 350.1.13.10 ity of NATIONAL 4.2.7.2.686 [place] BANK [phone] [facility] BLDG. [address] 2019-07-09 2019-07-09 Outpatient R PUTHENPARAM [facility] [id number] Univers 08:45:00 08:45:00 RENE ROCAEL ity of [facility] 2019-07-09 2019-07-09 Orders Doctor REYES 1.2.840.114 [id number] Univers 00:00:00 00:00:00 Only Unassigned, TOYA 350.1.13.10 ity of [place] HOSPITAL 4.2.7.2.686 [place] as [id number] [facility] [address] 2019-07-08 2019-07-08 Outpatient R [facility] [id number] Univers 16:00:00 16:00:00 ity of [facility] 2019-07-08 2019-07-08 Telemedici Oscar Gibbs UNIVERSIT 1.2.840.1 14 [id number] Univers 08:25:50 08:55:50 ne Visit Kirk Cervantes HEALTH 350.1.13.10 ity of CLINICS 4[place]2.7.2.[place] [id number] [facility] [address] 2019-07-03 2019-07-03 Public Area Supervisor Pcp-Lab [facility] 1.2.840.114 [id number] Univers 10:16:04 10:26:04 Visit Diana Patrick PRIMARY 350.1.13.10 ity of CARE [place].2.[place] RODRICK [id number] [address] 2019-07-03 2019-07-03 Outpatient R DARNELL [facility] [id number] Univers 10:20:00 10:20:00 DIANA ity of [facility] 2019-07-03 2019-07-03 Telephone [facility] 1.2.840.114 [id number] Univers 00:00:00 00:00:00 sa, Christian FAMILY 350.1.13.10 ity [place] [id number] [address] 2019-06-29 2019-06-29 Refill [facility] 1.2.840.114 [id number] Univers 00:00:00 00:00:00 sa, Christian PRIMARY 350.1.13.10 ity of [place] CARE 4.2.7.2.686 [place] P[facility]ION [phone] Me dical [address] 2019-06-08 2019-06-08 Telephone Petty Gibbsm UNIVERSIT 1.2.840.11 [id number] Univers 00:00:00 00:00:00 Y HEALTH 350.1.13.10 i ty [place] [id number] [address] 2019-06-08 2019-06-08 Refill [facility] 1.2.840.114 [id number] Univers 00:00:00 00:00:00 Tremaine FAMILY 350.1.13.10 it y of [place] MEDICINE 4.2.7.2.686 [place] CLINIC - [id number] [address] 2019-06-01 2019-06-01 Outpatient Ab BANSAL [facility] [id number] Univers 08:45:00 08:45:00 ROCAEL SHEETS [facility] 2019-05-26 2019-05-26 Telephone [facility] 1.2.017.815 [id number] Univers 00:00:00 00:00:00 Tremaine FAMILY 350.1.13.10 it y of [place] MEDICINE 4.2.7.2.686 [place]IC - [phone] [address] 2019-05-22 2019-05-22 Ancillary Malena Medina [facility] 1 .2.840.114 [id number] Univers 09:55:49 10:55:49 Visit Angeal Levy PRIMARY 350.1.13.10 [place] [id number] Md dical [address] 2019-05-22 2019-05-22 Outpatient Ab LEVY [facility] [id number] Univers 10:20:00 10:20:00 ANGELA aranda [facility] 2019-05-20 2019-05-21 Telemedici Sai Oscar UNIVERSIT 1..840.1 [id number] Univers 08:04:11 10:04:03 ne Visit Kirk Cervantes [facility] 350.1.13.10 ity of CL[place] [phone] [address] 2019-05-20 2019-05-20 Outpatient R SAM [facility] [id number] Univers 15:00:00 15:00:00 KIRK ity [facility] 2019-05-19 2019-05-20 Telemedici Tremaine Santillan [facility] 1. 2.840.114 [id number] Univers 08:48:34 14:43:38 ne Visit Dona Badillo FAMILY 350.1.13.10 ity of MEDICINE 4.2.7.2.686 [place] CLINIC - [phone] [address] 2019-05-20 2019-05-20 Telephone Tyrell [facility] 1.2.668.355 [id number] Univers 00:00:00 00:00:00 Tremaine FAMILY 350.1.13.10 it y of [facility] MEDICINE 4.2.7.2.686 [place] CLINIC - [phone] [address] 2019-05-19 2019-05-19 Outpatient R [facility] [id number] Univers 10:10:00 10:10:00 ity of [facility] 2019-05-15 2019-05-15 Refill Doctor [facility] 1.2.840.114 [id number] Univers 00:00:00 00:00:00 Unassigned, FAMILY 350.1.13.10 ity of [place] MEDICINE 4.2.7.2.686 [place] CL[place] - [phone] [address] 2019-04-20 2019-05-09 Office Lisandra Escoto [facility] 1.2.840.114 [id number] Univers 08:49:15 16:56:34 Visit Jose Armando Goldstein FAMILY 350.1.13.10 ity of MEDICINE 4.2.7.2.686 [place] - [phone] [address] 2019-05-07 2019-05-07 Orders Doctor REYES 1.2.840.114 [id number] Univers 00:00:00 00:00:00 Only Unassigned, TOYA 350.1.13.10 ity of [place] HOSPITAL 4.2.7.2.686 [place] [phone] [address] 2019-05-07 2019-05-07 Refill Nathalie [facility] 1.2.840.114 [id number] Univers 00:00:00 00:00:00 Dona Robertson FAMILY 350.1.13.10 i ty of MEDICINE 4.2.7.2.686 [place] - [phone] [address] 2019-05-05 2019-05-05 Outpatient Ab VACA [facility] [id number] Univers 09:00:00 09:00:00 LEXI aranda [facility] 2019-05-05 2019-05-05 Refill Jevon [facility] 1.2.840.114 [id number] Univers 00:00:00 00:00:00 Lisandra FAMILY 350.1.13.10 it y of MEDICINE 4.2.7.2.686 [place] - [phone] [address] 2019-05-03 2019-05-03 Refill Doctor [facility] 1.2.840.114 [id number] Univers 00:00:00 00:00:00 Unassigned, FAMILY 350.1.13.10 ity of [place] MEDICINE 4.2.7.2.686 [place] - [phone] [address] 2019-04-28 2019-04-28 Outpatient Ab VACA [facility] [id number] Univers 09:00:00 09:00:00 LEXI aranda [facility] 2019-04-28 2019-04-28 Orders Doctor PULLIAM 1.2.840.114 [id number] Univers 00:00:00 00:00:00 Only Unassigned, TOYA 350.1.13.10 ity of [place] HOSPITAL 4.2.7.2.686 [place] [phone] [address] 2019-04-27 2019-04-27 Orders Doctor REYES 1.2.840.114 [id number] Univers 00:00:00 00:00:00 Only Unassigned, TOYA 350.1.13.10 ity of [place] HOSPITAL 4.2.7.2.686 [place] [id number] [facility] [address] [place] 2019-04-22 2019-04-23 Office Lisandra Escoto [facility] 1.2.840.114 [id number] Univers 08:46:25 13:26:04 Visit Ramon Alcazar FAMILY 350.1.13.10 ity of MEDICINE 4.2.7.2.686 [place] - [phone] [address] 2019-04-22 2019-04-22 [facility] [id number] Univers 08:50:00 14:36:41 RAMON ity [facility] 2019-04-22 2019-04-22 [facility] 1..840.114 [id number] Univers 00:00:00 00:00:00 Pati RAMÍREZ 350.1.13.10 i ty of MEDICINE 4.2.7.2.686 [place] CL[place] - [phone] [address] 2019-04-20 2019-04-20 Outpatient Ab GOLDSTEIN [facility] [id number] Univers 10:04:58 23:59:00 JOSE ARMANDO ity [facility] 2019-04-20 2019-04-20 [facility] 1..840.114 [id number] Univers 10:04:00 23:59:00 Encounter [facility] 350.1.13.10 ity of Pediatric 4.2.7.2.686 [facility] [phone] [facility] [address] 2019-04-20 2019-04-20 Outpatient [facility] [id number] Univers 08:50:00 10:43:29 JOSE ARMANDO ity [facility] 2019-04-20 2019-04-20 [facility]ill [facility] 1.2.840.114 [id number] Univers 00:00:00 00:00:00 Christian santiago 350.1.13.10 ity of [place] [facility] - [phone] [address] 2019-04-15 2019-04-15 Telephone [facility] 1.2.548.469 [id number] Univers 00:00:00 00:00:00 Tremaine FAMILY 350.1.13.10 it y of [place] MEDICINE 4.2.7.2.686 [place] - [phone] [address] 2019-04-14 2019-04-14 Orders Doctor REYES 1.2.840.114 [id number] Univers 00:00:00 00:00:00 Only Unassigned, TOYA 350.1.13.10 ity of [place] [facility] 4.2.7.2.686 [place] [phone] [facility] [address] [place] 2019-04-08 2019-04-08 Office CARLOS Momin 1.2.840.114 [id number] Univers 08:43:26 14:05:14 Visit Trish Y 350.1.13.10 it y of NATIONAL 4.2.7.2.686 [place] BANK [phone] [facility] [address] [place] 2019-04-06 2019-04-06 [facility] 1.2.840.114 [id number] Univers 00:00:00 00:00:00 saChristian FAMILY 350.1.13.10 [place] - [phone] [address] 2019-04-04 2019-04-04 Telephone [facility] 1.2.029.691 [id number] Univers 00:00:00 00:00:00 Tremaine FAMILY 350.1.13.10 it y of [place] MEDICINE 4.2.7.2.686 [place] - [phone] [address] 2019-04-02 2019-04-02 Office Joseph [facility] 1.2.840.114 [id number] Univers 08:49:20 09:04:20 Visit Rocael sheets Y 350.1.13.10 ity of [place] 4.2.7.2.686 [place] BANK [phone] [facility] [address] [place] 2019-04-02 2019-04-02 Orders Doctor REYES 1.2.840.114 [id number] Univers 00:00:00 00:00:00 Only Unassigned, TOYA 350.1.13.10 ity of [place] HOSPITAL 4.2.7.2.686 [place] [id number] [address] 2019-03-30 2019-03-30 Refill Doctor UNIVERS 1.2.940.319 [id number] Univers 00:00:00 00:00:00 Unassigned, Y HEALTH 350.1.13.10 ity of [place] CL[place]ICS [place] [id number] [facility] [address] [place] 2019-03-30 2019-03-30 Orders Doctor REYES 1.2.840.114 [id number] Univers 00:00:00 00:00:00 Only Unassigned, TOYA 350.1.13.10 ity of [place] HOSPITAL 4.2.7.2.686 [place] [phone] [address] 2019-03-25 2019-03-25 Telephone Kaya Rodriguez [facility] 1.2.840.11 [id number] Univers 00:00:00 00:00:00 Y HEALTH 350.1.13.10 i ty of CL[place] [id number] [facility] [address] [place] 2019-03-24 2019-03-24 Office CARLOS Crystal 1.2.019.397 [id number] Univers 15:52:23 16:39:22 Visit [facility] Y HEALTH 350.1.13.10 ity of [place] CL[place]ICS [place] [phone] [facility] [address] [place] 2019-03-24 2019-03-24 Orders Doctor REYES 1.2.840.114 [id number] Univers 00:00:00 00:00:00 Only Unassigned, TOYA 350.1.13.10 ity of [place] HOSPITAL 4.2.7.2.686 [place] [phone] [address] 2019-03-21 2019-03-21 Telephone AYESHA Santillan 1.2.832.669 [id number] Univers 00:00:00 00:00:00 Tremaine FAMILY 350.1.13.10 it y of [place] MEDICINE 4.2.7.2.686 [place] CL[place] - [phone] [address] 2019-03-20 2019-03-20 Office Tremaine Santillan Alma Deliazehrajo-ann [place] 1.2.8 40.114 [id number] Univers 12:52:23 14:38:10 Visit Pati Perla FAMILY 350.1.13.10 ity of MEDICINE 4.2.7.2.686 [place] - [phone] [address] 2019-03-20 2019-03-20 Orders Doctor REYES 1.2.840.114 [id number] Univers 00:00:00 00:00:00 Only Unassigned, TOYA 350.1.13.10 ity of [place] HOSPITAL 4.2.7.2.686 [place] [phone] [address] 2019-03-18 2019-03-18 Office Oscar Gibbs [facility] 1.2.840.114 [id number] Univers 14:24:32 16:34:40 Visit Jayne Amos [facility] 350.1.13.10 it[place] of [place] [phone] [address] 2019-03-18 2019-03-18 Orders Doctor REYES 1.2.840.114 [id number] Univers 00:00:00 00:00:00 Only Unassigned, TOYA 350.1.13.10 ity of [place] HOSPITAL 4.2.7.2.686 [place] [phone] [address] 2019-03-17 2019-03-17 Orders Doctor REYES 1.2.840.114 [id number] Univers 00:00:00 00:00:00 Only Unassigned, TOYA 350.1.13.10 ity of [place] HOSPITAL 4.2.7.2.686 [place] [phone] [address] 2019-03-16 2019-03-16 [facility] 1.2.840.114 [id number] Univers 00:00:00 00:00:00 sa Christian FAMILY 350.1.13.10 [place] - [phone] [address] 2019-03-16 2019-03-16 Telephone Christian-Nwo [facility] 1.2.840.114 [id number] Univers 00:00:00 00:00:00 Christian santiago 350.1.13.10 [place] - [phone] [address] 2019-03-13 2019-03-13 Orders Doctor REYES 1.2.840.114 [id number] Univers 00:00:00 00:00:00 Only Unassigned, TOYA 350.1.13.10 ity of [place] HOSPITAL 4.2.7.2.686 [place] [phone] [facility] [address] 2019-03-11 2019-03-11 Abstract Michael Kaya [facility] 1.2.840.114 [id number] Univers 00:00:00 00:00:00 Y HEALTH 350.1.13.10 i ty of [place] [phone] [facility] [address] 2019-02-16 2019-02-16 Emergency X RAMONA [facility] ERT [id number] Univers 18:49:33 22:11:00 MINA rohan [facility] 2019-02-12 2019-02-14 Outpatient [facility] [id number] Univers 12:45:58 17:35:00 DONA taborrohan [facility] 2019-02-11 2019-02-11 Office Oscar Gibbs [facility]ERS[facility] 1.2.840.114 [id number] Univers 14:49:27 16:34:54 Visit Jayne Amos Y HEALTH 350.1.13.10 it[place] of [place] [id number] [facility] [address] 2019-02-10 2019-02-10 Orders Doctor REYES 1.2.840.114 [id number] Univers 00:00:00 00:00:00 Only Unassigned, TOYA 350.1.13.10 ity of [place] HOSPITAL 4.2.7.2.686 [place] [id number] [facility] [address] 2019-01-16 2019-01-17 Observatio nullFlavo [facility] [id number] [id number] Memoria 20:14:12 03:33:00 n ab HannahHastings 07 l [facility] 2019-01-16 2019-01-17 Observatio nullFlavo [facility] [id number] [id number] Memoria 20:14:12 03:33:00 n ab Rolando 07 l [facility] 2019-01-16 2019-01-16 Outpatient ROSITA GonzalesSE MHSE [id number] 14:14:12 21:33:00 Jake Quintanilla [facility] 2019-01-16 2019-01-16 Outpatient E MHSE MED [id number] 17:45:00 17:45:00 [facility] marcelo [facility] 2018-11-18 2018-11-18 Reggie Pena [facility] 1.2.840.114 [id number] Univers 00:00:00 00:00:00 Jordi FAMILY 350.1.13.10 it y of [facility] MEDICINE 4.2.7.2.686 [place] CL[place] - [phone] [address] 2018-11-13 2018-11-13 Public Area Supervisor Lab, [facility] [address] [facility] 1 .2.840.114 [id number] Univers 07:50:27 08:05:27 Visit Kirk Cervantes 350.1.13.10 ity of MEDICINE 4.2.7.2.686 [place] CL[place] - [phone] [address] 2018-11-12 2018-11-12 Public Area Supervisor [facility] UNIVERSIT 1.2.840.114 [id number] Univers 14:51:21 14:59:40 Visit Kirk Cervantes HEALTH 350.1.13.10 it[place] of [place] [phone] [facility] [address] [place] 2018-11-12 2018-11-12 Office Kaya Rodriguez [facility] 1.2.840.114 [id number] Univers 13:13:23 14:45:33 Visit Kirk Cervantes HEALTH 350.1.13.10 it[place] [phone] [facility] [address] 2018-11-11 2018-11-11 Office Lian [facility] 1.2.840.114 [id number] Univers 14:23:35 14:53:35 [facility] HEALTH 350.1.13.10 i ty [place] 705.0559127 [facility] [address] 2018-11-06 2018-11-06 Public Area Supervisor Lab, [facility] [place] [place]. [facility] 1 .2.840.114 [id number] Univers 12:58:42 13:13:42 Visit LawrenceEdwindontrell RAMÍREZ 350.1.13.10 ity of MEDICINE 4.2.7.2.686 [place] CL[place]IC - [id number] [address] 2018-11-05 2018-11-05 Refindy Munguia [facility] 1.2.650.572 [id number] Univers 00:00:00 00:00:00 [facility] Y HEALTH 350.1.13.10 ity [place] [id number] [facility] [address] 2018-11-05 2018-11-05 Refill Mikki [facility] 1.2.227.383 [id number] Univers 00:00:00 00:00:00 Conner [facility] HEALTH 350.1.13.10 i ty [place] [phone] [facility] [address] 2018-10-30 2018-10-30 Telephone NILDA Amos 1.2.840.114 [id number] Univers 00:00:00 00:00:00 [facility] HEALTH 350.1.13.10 it[place] [phone] [facility] [address] 2018-10-28 2018-10-28 Refindy Badillo [facility] 1.2.840.114 [id number] Univers 00:00:00 00:00:00 Dona Robertson FAMILY 350.1.13.10 i ty of MEDICINE 4.2.7.2.686 [place] CL[place] - [phone] [address] 2018-10-22 2018-10-22 Letter CARLOS Amos 1.2.181.648 [id number] Univers 00:00:00 00:00:00 (Out) [facility] [employer] 350.1.13.10 ity of [place] [phone] [address] [address] 2018-10-22 2018-10-22 Patient NILDA Amos 1.2.755.857 [id number] Univers 00:00:00 00:00:00 Secure Msg [facility] 350.1.13.10 ity of [place] [phone] [place] [address] Branch 2016-02-03 2016-02-03 Outpatient MHIE MHIE [id number] Memoria 15:15:00 15:15:00 10 soraya Marshall 2016-02-03 2016-02-03 Outpatient MHIE MHIE [id number] Memoria 15:15:00 15:15:00 10 soraya Marshall 2015-10-11 2015-10-11 Outpatient MHIE MHIE [id number] Memoria 15:15:00 15:15:00 09 soraya HannahHastings 2015-10-11 2015-10-11 Outpatient MHIE MHIE [id number] Memoria 15:15:00 15:15:00 09 soraya HannahHastings 2015-10-07 2015-10-07 Outpatient MHIE MHIE [id number] Memoria 15:30:00 15:30:00 06 soraya HannahRolando 2015-10-07 2015-10-07 Outpatient MHIE MHIE [id number] Memoria 15:30:00 15:30:00 06 [facility] 2015-09-28 2015-09-29 Outpatient nullFlavo [facility] [id number] Memoria 12:48:00 04:59:00 r Rolando 09 [facility] 2015-09-28 2015-09-29 Outpatient nullFlavo [facility] [id number] [id number] Memoria 12:48:00 04:59:00 r Rolando 09 [facility] 2015-09-28 2015-09-28 Outpatient ROSITA MorenoSE MHSE [id number] 07:48:00 23:59:00 Pati Wisdom 2015-09-21 2015-09-21 Bedded nullFlavo [facility] [id number] Memoria 13:30:00 16:32:00 Outpatient r [place] 06 [facility] 2015-09-21 2015-09-21 Bedded nullFlavo [facility] [id number] Memoria 13:30:00 16:32:00 Outpatient r Rolando 06 [facility] 2015-09-21 2015-09-21 Outpatient Lettyya MHSE MHSE [id number] 08:30:00 11:32:00 yJose Angel Loza 2015-09-13 2015-09-13 Outpatient MHIE MHIE [id number] Memoria 09:00:00 09:00:00 08 soraya Hastings 2015-09-13 2015-09-13 Outpatient MHIE MHIE [id number] Memoria 09:00:00 09:00:00 08 l [place] 2015-08-09 2015-08-09 Outpatient MHIE MHIE [id number] Memoria 10:15:00 10:15:00 07 l [place] 2015-08-09 2015-08-09 Outpatient MHIE MHIE [id number] Memoria 10:15:00 10:15:00 07 l [place] 2015-07-20 2015-07-21 Outpatient nullFlavo [facility] [id number] Memoria 12:02:00 04:59:00 r Hastings 03 [facility] 2015-07-20 2015-07-21 Outpatient nullFlavo [facility] [id number] Memoria 12:02:00 04:59:00 r Rolando 03 [facility] 2015-07-20 2015-07-20 Outpatient ANTHONY Vallecillo MHSE [id number] 07:02:00 23:59:00 Gideon E 03 2015-06-06 2015-06-07 Outpatient nullFlavo [facility] [id number] Memoria 21:10:00 04:59:00 r Hastings 95 [facility] 2015-06-06 2015-06-07 Outpatient nullFlavo [facility] [id number] [id number] Memoria 21:10:00 04:59:00 r Rolando 95 [facility] 2015-06-06 2015-06-06 Outpatient ANTHONY Moreno MHSE [id number] 16:10:00 23:59:00 Pati Wisdom 2015-06-03 2015-06-03 Outpatient MHIE MHIE [id number] Memoria 15:15:00 15:15:00 05 soraya Marshall 2015-06-03 2015-06-03 Outpatient MHIE MHIE [id number] Memoria 15:15:00 15:15:00 05 soraya Marshall 2015-02-15 2015-02-15 Outpatient MHIE MHIE [id number] Memoria 15:15:00 15:15:00 04 soraya Marshall 2015-02-15 2015-02-15 Outpatient MHIE MHIE [id number] Memoria 15:15:00 15:15:00 04 soraya Marshall 2015-01-20 2015-01-20 Outpatient MHIE MHIE [id number] Memoria 14:30:00 14:30:00 01 soraya Marshall 2015-01-20 2015-01-20 Outpatient MHIE MHIE [id number] Memoria 14:30:00 14:30:00 01 soraya Marshall 2014-12-07 2014-12-07 Outpatient MHIE IE [id number] Memoria 14:30:00 14:30:00 02 soraya Marshall 2014-12-07 2014-12-07 Outpatient MHIE MHIE [id number] Memoria 14:30:00 14:30:00 02 soraya Marshall 2014-10-26 2014-11-25 OP Therapy nullFlavo [facility] [id number] Memoria 20:40:00 04:59:00 Patients r [facility] 02 [facility] 2014-10-26 2014-11-25 OP Therapy nullFlavo SMR [id number] Memoria 20:40:00 04:59:00 Patients r [facility] 02 [facility] 2014-10-26 2014-11-24 Outpatient Josh, 2.16.840. 2.16.840.1. [id number] 15:40:00 23:59:00 Pati 1.915235. [id number] 02 Alyx 3.615.52 5.52 2014-11-23 2014-11-24 Outpt Diag nullFlavo [facility] [id number] Memoria 17:39:00 04:59:00 Services r Outpatient 00 l Johnny Piña 2014-11-23 2014-11-24 Outpt Diag nullFlavo [facility] [id number] Memoria 17:39:00 04:59:00 Services r [facility] 2014-11-23 2014-11-23 Outpatient SHAHID Buckley [facility] [id number] 12:39:00 23:59:00 Brennan 00 2014-11-05 2014-11-05 Outpatient MHIE IE [id number] Memoria 08:00:00 08:00:00 03 soraya Marshall 2014-11-05 2014-11-05 Outpatient MHIE IE [id number] Memoria 08:00:00 08:00:00 03 soraya Marshall 2014-09-23 2014-10-23 OP Therapy nullFlavo [facility] [id number] Memoria 19:45:00 04:59:00 Patients r [facility] 01 [facility] 2014-09-23 2014-10-23 OP Therapy nullFlavo [facility] [id number] Memoria 19:45:00 04:59:00 Patients r [facility] 01 [facility] 2014-09-23 2014-10-22 Outpatient Josh, 2.16.840. 2.16.840.1. [id number] 14:45:00 23:59:00 Pati 1.399238. [id number] 01 Alyx 3.615.52 5.52 2014-09-17 2014-09-17 Outpatient IE IE [id number] Memoria 09:30:00 09:30:00 00 soraya Marshall 2014-09-17 2014-09-17 Outpatient IE IE [id number] Memoria 09:30:00 09:30:00 00 soraya Marshall 2013-12-08 2013-12-09 Outpatient nullFlavo [facility] [id number] Memoria 17:41:00 04:59:00 r [place] 00 [facility] 2013-12-08 2013-12-09 Outpatient nullFlavo [facility] [id number] Memoria 17:41:00 04:59:00 r Rolando 00 [facility] 2013-12-08 2013-12-08 Outpatient Josh, 2.16.840. 2.16.840.1. [id number] 12:41:00 23:59:00 Pati 1.721226. [id number] 00 Alyx 3.615.0.1 5.0.160 45 1404-10-01 2013-12-03 Outpatient nullFlavo [facility] [id number] [id number] Memoria 18:35:00 04:59:00 r [place] 74 l [facility] 2013-12-02 2013-12-03 Outpatient nullFlavo [facility] [id number] [id number] Memoria 18:35:00 04:59:00 r Hastings 74 [facility] 2013-12-02 2013-12-02 Outpatient Josh, 2.16.840. 2.16.840.1. [id number] 13:35:00 23:59:00 Pati 1.234962. [id number] Alyx 3.615.0.1 5.0.065 10 0836-12-29 2012-03-01 Outpatient nullFlavo [id number] Memoria 21:00:00 23:59:00 r [facility] 03 soraya Hastings 2012-03-01 2012-03-01 Outpatient nullFlavo [id number] Memoria 21:00:00 23:59:00 r [facility] 03 soraya Hastings 2011-04-05 2011-04-05 Outpatient nullFlavo [id number] Memoria 17:52:00 23:59:00 r [facility] 02 soraya Hastings 2011-04-05 2011-04-05 Outpatient nullFlavo [id number] Memoria 17:52:00 23:59:00 r [facility] 02 soraya Hastings 2011-03-01 2011-03-01 Outpatient nullFlavo [id number] Memoria 15:52:00 15:52:00 r [facility] 63 [facility] 2011-03-01 2011-03-01 Outpatient nullFlavo [id number] Memoria 15:52:00 15:52:00 r [facility] 63 Rolando Results Test Description Test Time Test Comments Results Result Comments Source HEMATOLOGY 2019-01-16 21:03:00 Test Item Value Reference Range Interpretation Comme nts Platelet (test code = Platelet) 286 133-450 [facility]pt[facility]OVLEBDN4673-26-25 21:03:00 Test Item Value Reference Range Interpretation Comments MPV (test code = MPV) 8.5 7.4-10.4 [facility]3051-31-94 21:03:00 Test Item Value Reference Range Interpretation Comments Segs (test code = Segs) 91.9 45.0-75.0 [facility] HospitalWnwfrlqUWNEBTRGWA7580-35-64 21:03:00 Test Item Value Reference Range Interpretation Comments Lymphocytes (test code = Lymphocytes) 5.0 20.0-40.0 [facility] HospitalJxtjbvkFOBIINOVRE1181-27-92 21:03:00 Test Item Value Reference Range Interpretation Comments Monocytes (test code = Monocytes) 2.4 2.0-12.0 [facility] HospitalDondrhaOQXNGPDWSV8833-50-08 21:03:00 Test Item Value Reference Range Interpretation Comments Basophils (test code = 0.7 See_Comment [Aut omated message] The Basophils) system which ge nerated this result tra nsmitted reference range : <=1.0. The reference r carolynn was not used to int erpret this result as normal/abnormal . [facility] HospitalClknmufERGIMJXBMF6642-19-19 21:03:00 Test Item Value Reference Range Interpretation Comments Neutrophils # (test code = Neutrophils 10.1 1.5-8.1 #) [facility] HospitalPgpvjteHEDMTGDMTT0003-91-72 21:03:00 Test Item Value Reference Range Interpretation Comments Lymphocytes # (test code = Lymphocytes 0.5 1.0-5.5 #) [facility] HospitalGdkbqxiSEPBYXBYYH9707-86-39 21:03:00 Test Item Value Reference Range Interpretation Comments Monocytes # (test code 0.3 See_Comment [Aut omated message] The = Monocytes #) system which generated this result tra nsmitted reference range : <=0.8. The reference r carolynn was not used to int erpret this result as normal/abnormal . [facility] HospitalFvcblliZVZPQRWFKL3963-15-64 21:03:00 Test Item Value Reference Range Interpretation Comments Basophils # (test code 0.1 See_Comment [Aut omated message] The = Basophils #) system which generated this result tra nsmitted reference range : <=0.2. The reference r carolynn was not used to int erpret this result as normal/abnormal . [facility] CenterCARDIMCLAREN PORT HURON HOSPITALJFHNLIT4193-68-24 21:03:00 Test Item Value Reference Range Interpretation Comments Troponin-I (test code no gt See_Comment [Auto mated message] The = Troponin-I) system which g enerated this result transmit todd reference range : <=0.40. The reference r carolynn was not used to interpr et this result as kimberli l/abnormal. [facility]CARD[facility] [id number] 21:03:00 Test Item Value Reference Range Interpretation Comments BNP (test code = BNP) 75 [facility] CenterCHEM [id number] 21:03:00 Test Item Value Reference Range Interpretation Comments Lipase Lvl (test code = Lipase Lvl) 130 73-393 [id number] 21:03:00 Test Item Value Reference Range Interpretation Comments AGAP (test code = AGAP) 12.6 10.0-20.0 [facility] HospitalUkggbpmJXJRLJPQRISL2590-93-04 21:03:00 Test Item Value Reference Range Interpretation Comments B/C Ratio (test code = B/C Ratio) 16 1 6-25 [facility] Hospital[id number] 21:03:00 Test Item Value Reference Range Interpretation Comments Globulin (test code = Globulin) 3.8 2.7-4.2 [facility]VgsjrpjKJVIRDVOCUZE2609-96-50 21:03:00 Test Item Value Reference Range Interpretation Comments A/G Ratio (test code = A/G Ratio) 0.9 1 0.7-1.6 [facility] HospitalApdutzsJATLWEPKGBWW7927-07-35 21:03:00 Test Item Value Reference Range Interpretation Comments Glucose Lvl (test code = Glucose Lvl) 177 70-99 [facility] HospitalAfhjxwyMSYTOFLNLGHG0205-87-27 21:03:00 Test Item Value Reference Range Interpretation Comments BUN (test code = BUN) 35 7-22 [facility] HospitalNjndfcgTZZRLTLBOKYH0229-27-21 21:03:00 Test Item Value Reference Range Interpretation Comments Creatinine Lvl (test code = Creatinine 2.24 0.50-1.40 Lvl) [facility] HospitalZidvgspRCKUFEYXDRQZ7096-67-93 21:03:00 Test Item Value Reference Range Interpretation Comments Sodium Lvl (test code = Sodium Lvl) 139 135-145 [facility] HospitalYitgkhsKCIIKFVFTHYY0006-48-13 21:03:00 Test Item Value Reference Range Interpretation Comments Potassium Lvl (test code = Potassium 4.6 3.5-5.1 Lvl) [facility] HospitalHvnrthwHUMXIDWCXRFL5333-64-60 21:03:00 Test Item Value Reference Range Interpretation Comments Chloride Lvl (test code = Chloride Lvl) 105 95-109 [facility] HospitalGsvodulBTNULREFNPDO3924-66-94 21:03:00 Test Item Value Reference Range Interpretation Comments CO2 (test code = CO2) 26 24-32 [facility] HospitalXpjnsbcKDTALSSYZCUH7793-37-20 21:03:00 Test Item Value Reference Range Interpretation Comments Calcium Lvl (test code = Calcium Lvl) 9.5 8.5-10.5 [facility] HospitalNbxuawcXYRQCDIXADJQ3521-45-68 21:03:00 Test Item Value Reference Range Interpretation Comments Total Protein (test code = Total 7.2 6.4-8.4 Protein) [facility] HospitalPjmaesnAOUYURDJSMLK6053-07-05 21:03:00 Test Item Value Reference Range Interpretation Comments Albumin Lvl (test code = Albumin Lvl) 3.4 3.5-5.0 [facility] HospitalZlgqywjJNWKFKTFMOGK7563-20-42 21:03:00 Test Item Value Reference Range Interpretation Comments ALT (test code = ALT) 28 See_Comment [Auto mated message] The system which ge nerated this result transmit todd reference range : <=65. The reference range was not used to interpr et this result as kimberli l/abnormal. [facility] HospitalHblnqhiSEMROTPBXKJS3550-01-01 21:03:00 Test Item Value Reference Range Interpretation Comments AST (test code = AST) 22 See_Comment [Auto mated message] The system which ge nerated this result transmit todd reference range : <=37. The reference range was not used to interpr et this result as kimberli l/abnormal. [facility] HospitalKyurkgjRVJMPYUIHQBY3368-76-85 21:03:00 Test Item Value Reference Range Interpretation Comments Alk Phos (test code = Alk Phos) 82 39-136 [facility] HospitalOafcksaAZIMMKVRLAOJ8601-24-43 21:03:00 Test Item Value Reference Range Interpretation Comments Bili Total (test code = Bili Total) 0.4 0.2-1.3 [facility] HospitalZakcqahNNROXLAXAAYP7488-50-53 21:03:00 Test Item Value Reference Range Interpretation Comments eGFR (test code = eGFR) 29 [facility] CenterDkakxaiAMZOCDYNCO7093-99-81 21:03:00 Test Item Value Reference Range Interpretation Comments WBC (test code = WBC) 11.0 3.7-10.4 [facility]JqeecyuPZVFNQNVLZ7147-09-18 21:03:00 Test Item Value Reference Range Interpretation Comments RBC (test code = RBC) 4.22 4.70-6.10 [facility] HospitalQrrjvzfKGEAGOBSUS3088-27-25 21:03:00 Test Item Value Reference Range Interpretation Comments Hgb (test code = Hgb) 13.4 14.0-18.0 [facility] HospitalLsoyxjvSXRBDBPISR8601-24-23 21:03:00 Test Item Value Reference Range Interpretation Comments Hct (test code = Hct) 40.2 42.0-54.0 [facility] HospitalMacbbwdZNEDBQFUAT7931-87-87 21:03:00 Test Item Value Reference Range Interpretation Comments MCV (test code = MCV) 95.2 80.0-94.0 [facility] HospitalJrnehdqFZUHZOVSWG3893-86-70 21:03:00 Test Item Value Reference Range Interpretation Comments MCH (test code = MCH) 31.7 pg 27.0-31.0 [facility] HospitalJqqhcfuILUZIZEZZR6564-45-73 21:03:00 Test Item Value Reference Range Interpretation Comments MCHC (test code = MCHC) 33.3 32.0-36.0 [facility] HospitalJxtvgkeOIDWZEMYSS2796-46-22 21:03:00 Test Item Value Reference Range Interpretation Comments RDW (test code = RDW) 14.3 11.5-14.5 [facility] HospitalLehycouUUIGXVLECI2331-85-41 21:03:00 Test Item Value Reference Range Interpretation Comments Platelet (test code = Platelet) 286 133-450 [facility] HospitalUgudxflCOCMLRSEJD1653-35-38 21:03:00 Test Item Value Reference Range Interpretation Comments MPV (test code = MPV) 8.5 7.4-10.4 [facility] HospitalTjjrsioCBUNQDBQHF4042-76-30 21:03:00 Test Item Value Reference Range Interpretation Comments Segs (test code = Segs) 91.9 45.0-75.0 [facility] HospitalPojiiouACFNWQXOJS0381-71-51 21:03:00 Test Item Value Reference Range Interpretation Comments Lymphocytes (test code = Lymphocytes) 5.0 20.0-40.0 [facility] HospitalLeaayetXBYGZSJBQQ3469-00-06 21:03:00 Test Item Value Reference Range Interpretation Comments Monocytes (test code = Monocytes) 2.4 2.0-12.0 [facility] HospitalAaudgkiTHLERJYSWI3374-26-94 21:03:00 Test Item Value Reference Range Interpretation Comments Basophils (test code = 0.7 See_Comment [Aut omated message] The Basophils) system which ge nerated this result tra nsmitted reference range : <=1.0. The reference r carolynn was not used to int erpret this result as normal/abnormal . [facility]OlazlubRXDPSVFDEF8703-69-06 21:03:00 Test Item Value Reference Range Interpretation Comments Neutrophils # (test code = Neutrophils 10.1 1.5-8.1 #) [facility]awZypxivsNZGAARGCRT3915-50-72 21:03:00 Test Item Value Reference Range Interpretation Comments Lymphocytes # (test code = Lymphocytes 0.5 1.0-5.5 #) [facility]awCfzbpkiUKHSRQHQGE3559-75-86 21:03:00 Test Item Value Reference Range Interpretation Comments Monocytes # (test code 0.3 See_Comment [Aut omated message] The = Monocytes #) system which generated this result tra nsmitted reference range : <=0.8. The reference r carolynn was not used to int erpret this result as normal/abnormal . [facility]awRwzsaxmPZLMTIAPHA2504-14-87 21:03:00 Test Item Value Reference Range Interpretation Comments Basophils # (test code 0.1 See_Comment [Aut omated message] The = Basophils #) system which generated this result tra nsmitted reference range : <=0.2. The reference r carolynn was not used to int erpret this result as normal/abnormal . [facility] QCUNJXP6630-95-81 21:03:00 Test Item Value Reference Range Interpretation Comments Troponin-I (test code no gt See_Comment [Auto mated message] The = Troponin-I) system which g enerated this result transmit todd reference range : <=0.40. The reference r carolynn was not used to interpr et this result as kimberli l/abnormal. [facility] CenterCARDIAC PECOGGM5726-02-53 21:03:00 Test Item Value Reference Range Interpretation Comments BNP (test code = BNP) 75 [facility] CenterCHEM ZLEWD4665-19-76 21:03:00 Test Item Value Reference Range Interpretation Comments Lipase Lvl (test code = Lipase Lvl) 130 73-393 [facility] TexasYqunmvaFLKTLKDTFECA1528-72-04 21:03:00 Test Item Value Reference Range Interpretation Comments AGAP (test code = AGAP) 12.6 10.0-20.0 [facility] HospitalErheczfAXXKDMNHFFRY7942-06-94 21:03:00 Test Item Value Reference Range Interpretation Comments B/C Ratio (test code = B/C Ratio) 16 1 6-25 [facility] HospitalRwrzkpsSLCXNMZHRGGB5691-45-24 21:03:00 Test Item Value Reference Range Interpretation Comments Globulin (test code = Globulin) 3.8 2.7-4.2 [facility] HospitalHymztjsXYXQYSTZSHSN5222-80-45 21:03:00 Test Item Value Reference Range Interpretation Comments A/G Ratio (test code = A/G Ratio) 0.9 1 0.7-1.6 [facility] HospitalDtyyahhSSFZFIFNIIZY3995-64-52 21:03:00 Test Item Value Reference Range Interpretation Comments Glucose Lvl (test code = Glucose Lvl) 177 70-99 [facility] HospitalTwnugfyZMVCLZVWCTEQ3729-36-65 21:03:00 Test Item Value Reference Range Interpretation Comments BUN (test code = BUN) 35 7-22 [facility] HospitalOpsuorcETJJCZHMQOBW5087-41-52 21:03:00 Test Item Value Reference Range Interpretation Comments Creatinine Lvl (test code = Creatinine 2.24 0.50-1.40 Lvl) [facility] HospitalUlhuwriAWSFMOGPLUVB5070-21-10 21:03:00 Test Item Value Reference Range Interpretation Comments Sodium Lvl (test code = Sodium Lvl) 139 135-145 [facility] HospitalVmpiuehELUXZMBOBJSL9369-31-26 21:03:00 Test Item Value Reference Range Interpretation Comments Potassium Lvl (test code = Potassium 4.6 3.5-5.1 Lvl) [facility] HospitalBejlvclBHLBALUTYWZG0051-08-98 21:03:00 Test Item Value Reference Range Interpretation Comments Chloride Lvl (test code = Chloride Lvl) 105 95-109 [facility] HospitalNzvzheeTBRDVZLQYIIA3633-66-10 21:03:00 Test Item Value Reference Range Interpretation Comments CO2 (test code = CO2) 26 24-32 [facility] HospitalBwoaridXMQXBFSTKSBW8297-73-18 21:03:00 Test Item Value Reference Range Interpretation Comments Calcium Lvl (test code = Calcium Lvl) 9.5 8.5-10.5 [facility] HospitalVuuuvpyROLSWBCDTPGF5464-75-58 21:03:00 Test Item Value Reference Range Interpretation Comments Total Protein (test code = Total 7.2 6.4-8.4 Protein) [facility] HospitalQxvccztWDBLIQDZSBCF0625-37-67 21:03:00 Test Item Value Reference Range Interpretation Comments Albumin Lvl (test code = Albumin Lvl) 3.4 3.5-5.0 [facility] HospitalNhcqpyuFLQTKAGCUWXY0564-89-82 21:03:00 Test Item Value Reference Range Interpretation Comments ALT (test code = ALT) 28 See_Comment [Auto mated message] The system which ge nerated this result transmit todd reference range : <=65. The reference range was not used to interpr et this result as kimberli l/abnormal. [facility] HospitalYiwcuzeHUIPPMDLFXSO7356-51-43 21:03:00 Test Item Value Reference Range Interpretation Comments AST (test code = AST) 22 See_Comment [Auto mated message] The system which ge nerated this result transmit todd reference range : <=37. The reference range was not used to interpr et this result as kimberli l/abnormal. [facility] HospitalWpbivwoIYOJTVFOTXXM6883-51-11 21:03:00 Test Item Value Reference Range Interpretation Comments Alk Phos (test code = Alk Phos) 82 39-136 [facility] HospitalJzalbexDXKJPUJTLEAB3941-74-44 21:03:00 Test Item Value Reference Range Interpretation Comments Bili Total (test code = Bili Total) 0.4 0.2-1.3 [facility] HospitalTdpbwgxLMFVYWVWTYQU6802-39-11 21:03:00 Test Item Value Reference Range Interpretation Comments eGFR (test code = eGFR) 29 [facility] HospitalYxbojnwELLCKSSMIN4661-76-09 21:03:00 Test Item Value Reference Range Interpretation Comments WBC (test code = WBC) 11.0 3.7-10.4 [facility] HospitalQsqhykxXKNTNRFRQO3771-23-75 21:03:00 Test Item Value Reference Range Interpretation Comments RBC (test code = RBC) 4.22 4.70-6.10 [facility] HospitalMtwptmbHAGQOEOSFA7724-36-96 21:03:00 Test Item Value Reference Range Interpretation Comments Hgb (test code = Hgb) 13.4 14.0-18.0 [facility] HospitalCytfuhxHZPZPYXCPV3529-51-57 21:03:00 Test Item Value Reference Range Interpretation Comments Hct (test code = Hct) 40.2 42.0-54.0 [facility] HospitalWqziypiDYEEPHKFZU3965-34-03 21:03:00 Test Item Value Reference Range Interpretation Comments MCV (test code = MCV) 95.2 80.0-94.0 [facility] CenterSsxostoRYAOKYMSTQ5180-57-78 21:03:00 Test Item Value Reference Range Interpretation Comments MCH (test code = MCH) 31.7 pg 27.0-31.0 [facility]CAR[facility] CAVXLOT5848-96-29 21:03:00 Test Item Value Reference Range Interpretation Comments Troponin-I (test code no gt See_Comment [Auto mated message] The = Troponin-I) system which g enerated this result transmit todd reference range : <=0.40. The reference r carolynn was not used to interpr et this result as kimberli l/abnormal. [facility] CenterCARAC SETCEFH6629-49-77 21:03:00 Test Item Value Reference Range Interpretation Comments BNP (test code = BNP) 75 [facility] CenterCHEM EROIK8920-63-99 21:03:00 Test Item Value Reference Range Interpretation Comments Lipase Lvl (test code = Lipase Lvl) 130 73-393 [facility]VkgwtxeLEWEZXYDXABA8270-44-92 21:03:00 Test Item Value Reference Range Interpretation Comments AGAP (test code = AGAP) 12.6 10.0-20.0 [facility] HospitalMghlezfLSDQUWSVSRCS0159-80-28 21:03:00 Test Item Value Reference Range Interpretation Comments B/C Ratio (test code = B/C Ratio) 16 1 6-25 [facility] HospitalDadrodfQHUPRPNEXIDK0900-98-65 21:03:00 Test Item Value Reference Range Interpretation Comments Globulin (test code = Globulin) 3.8 2.7-4.2 [facility] HospitalZeuytyxNENEBFWMINNA2876-63-49 21:03:00 Test Item Value Reference Range Interpretation Comments A/G Ratio (test code = A/G Ratio) 0.9 1 0.7-1.6 [facility] HospitalSntcnwsJXQKSFDXROFB3618-47-91 21:03:00 Test Item Value Reference Range Interpretation Comments Glucose Lvl (test code = Glucose Lvl) 177 70-99 [facility] HospitalZsxoxmbNCPBOKKCHAQT7721-22-56 21:03:00 Test Item Value Reference Range Interpretation Comments BUN (test code = BUN) 35 7-22 [facility] HospitalJxdrnykRTYGKLUYGUCH5677-76-07 21:03:00 Test Item Value Reference Range Interpretation Comments Creatinine Lvl (test code = Creatinine 2.24 0.50-1.40 Lvl) [facility] CenterOonoffhHETOCSIFJT4141-04-15 21:03:00 Test Item Value Reference Range Interpretation Comments MCHC (test code = MCHC) 33.3 32.0-36.0 [facility] HospitalIczxxjlOTMHMYUFZVSS9850-99-85 21:03:00 Test Item Value Reference Range Interpretation Comments Sodium Lvl (test code = Sodium Lvl) 139 135-145 [facility] HospitalFeulyjqXRWBBGZFNHFQ8050-80-32 21:03:00 Test Item Value Reference Range Interpretation Comments Potassium Lvl (test code = Potassium 4.6 3.5-5.1 Lvl) [facility] HospitalCedwieqZCNNGOBFYSFH0713-46-33 21:03:00 Test Item Value Reference Range Interpretation Comments Chloride Lvl (test code = Chloride Lvl) 105 95-109 [facility] HospitalJndvrnrUWDLIPHFHCYX2799-64-38 21:03:00 Test Item Value Reference Range Interpretation Comments CO2 (test code = CO2) 26 24-32 [facility] HospitalCfejzgzQUAOZJEERFOH5560-18-41 21:03:00 Test Item Value Reference Range Interpretation Comments Calcium Lvl (test code = Calcium Lvl) 9.5 8.5-10.5 [facility] HospitalKhzrgdfDFGSVHFWYUPJ6221-90-56 21:03:00 Test Item Value Reference Range Interpretation Comments Total Protein (test code = Total 7.2 6.4-8.4 Protein) [facility] HospitalBfqugthFUEJPPSFZFFU2654-73-41 21:03:00 Test Item Value Reference Range Interpretation Comments Albumin Lvl (test code = Albumin Lvl) 3.4 3.5-5.0 [facility] HospitalRsvyijqOCKTNNIXIXCK7144-17-90 21:03:00 Test Item Value Reference Range Interpretation Comments ALT (test code = ALT) 28 See_Comment [Auto mated message] The system which ge nerated this result transmit todd reference range : <=65. The reference range was not used to interpr et this result as kimberli l/abnormal. [facility] HospitalActjkznIRFVFQPDJZYY6122-75-61 21:03:00 Test Item Value Reference Range Interpretation Comments AST (test code = AST) 22 See_Comment [Auto mated message] The system which ge nerated this result transmit todd reference range : <=37. The reference range was not used to interpr et this result as kimberli l/abnormal. [facility] HospitalXrtjmzuIQQQBOXJHMSP9170-93-84 21:03:00 Test Item Value Reference Range Interpretation Comments Alk Phos (test code = Alk Phos) 82 39-136 [facility] HospitalIsrjhsaCAWPMHZEBL3128-91-80 21:03:00 Test Item Value Reference Range Interpretation Comments RDW (test code = RDW) 14.3 11.5-14.5 [facility] HospitalGztoasnZSGEZVPIATBK9299-24-04 21:03:00 Test Item Value Reference Range Interpretation Comments Bili Total (test code = Bili Total) 0.4 0.2-1.3 [facility] HospitalGifuwcrKBBPOZJHCKUU9265-52-00 21:03:00 Test Item Value Reference Range Interpretation Comments eGFR (test code = eGFR) 29 [facility] HospitalYnbhwxnKLUVLPAAQP4765-95-20 21:03:00 Test Item Value Reference Range Interpretation Comments WBC (test code = WBC) 11.0 3.7-10.4 [facility] HospitalYvdrdemGFBSLTSPUU8201-52-99 21:03:00 Test Item Value Reference Range Interpretation Comments RBC (test code = RBC) 4.22 4.70-6.10 [facility] HospitalGpuspwgLOPGHBJMRT8746-99-38 21:03:00 Test Item Value Reference Range Interpretation Comments Hgb (test code = Hgb) 13.4 14.0-18.0 [facility] HospitalIgnnmlmWFKBPRMFXX4214-29-35 21:03:00 Test Item Value Reference Range Interpretation Comments Hct (test code = Hct) 40.2 42.0-54.0 [facility] HospitalRkzvnaaTSLLCNKRKS6482-01-39 21:03:00 Test Item Value Reference Range Interpretation Comments MCV (test code = MCV) 95.2 80.0-94.0 [facility] HospitalVolnecuMSCODIEJBG6835-21-87 21:03:00 Test Item Value Reference Range Interpretation Comments MCH (test code = MCH) 31.7 pg 27.0-31.0 [facility] HospitalRmkfahxPXBNMNGPSS3557-88-03 21:03:00 Test Item Value Reference Range Interpretation Comments MCHC (test code = MCHC) 33.3 32.0-36.0 [facility] HospitalRpddtkhHZMRCMPORG9062-06-62 21:03:00 Test Item Value Reference Range Interpretation Comments RDW (test code = RDW) 14.3 11.5-14.5 [facility] HospitalXsgtqsjDAODXMQDAA6120-47-84 21:03:00 Test Item Value Reference Range Interpretation Comments Platelet (test code = Platelet) 286 133450 [facility] HospitalGfczjjnZJAQGAAQYE3657-71-06 21:03:00 Test Item Value Reference Range Interpretation Comments Platelet (test code = Platelet) 286 133-450 [facility] HospitalBjepzxlHPFEGOERRL7048-11-66 21:03:00 Test Item Value Reference Range Interpretation Comments MPV (test code = MPV) 8.5 7.4-10.4 [facility] HospitalDafwhvpAYFTDEPQJH8706-41-68 21:03:00 Test Item Value Reference Range Interpretation Comments Segs (test code = Segs) 91.9 45.0-75.0 [facility] HospitalDhzkavbDSWNPODLFB5401-11-32 21:03:00 Test Item Value Reference Range Interpretation Comments Lymphocytes (test code = Lymphocytes) 5.0 20.0-40.0 [facility] HospitalXyhdnsrMNXGKBMSIL4854-90-50 21:03:00 Test Item Value Reference Range Interpretation Comments Monocytes (test code = Monocytes) 2.4 2.0-12.0 [facility] HospitalWkkaiblSLVHBYRAPL6042-09-30 21:03:00 Test Item Value Reference Range Interpretation Comments Basophils (test code = 0.7 See_Comment [Aut omated message] The Basophils) system which ge nerated this result tra nsmitted reference range : <=1.0. The reference r carolynn was not used to int erpret this result as normal/abnormal . [facility] HospitalPleoletBUIGZZEJML5023-67-42 21:03:00 Test Item Value Reference Range Interpretation Comments Neutrophils # (test code = Neutrophils 10.1 1.5-8.1 #) [facility] HospitalRjxscdbLIFZQGCIAX3518-83-76 21:03:00 Test Item Value Reference Range Interpretation Comments Lymphocytes # (test code = Lymphocytes 0.5 1.0-5.5 #) [facility] HospitalHfvfavbMSUFXFGBJB6035-73-92 21:03:00 Test Item Value Reference Range Interpretation Comments Monocytes # (test code 0.3 See_Comment [Aut omated message] The = Monocytes #) system which generated this result tra nsmitted reference range : <=0.8. The reference r carolynn was not used to int erpret this result as normal/abnormal . [facility] HospitalCmmsuzrGDRMNKMUKP0038-88-25 21:03:00 Test Item Value Reference Range Interpretation Comments Basophils # (test code 0.1 See_Comment [Aut omated message] The = Basophils #) system which generated this result tra nsmitted reference range : <=0.2. The reference r carolynn was not used to int erpret this result as normal/abnormal . [facility] HospitalVicxohdXNWOFXHKIB3437-25-30 21:03:00 Test Item Value Reference Range Interpretation Comments MPV (test code = MPV) 8.5 7.4-10.4 [facility] HospitalUtvdyvoSHBXSJCRNP8057-54-80 21:03:00 Test Item Value Reference Range Interpretation Comments Segs (test code = Segs) 91.9 45.0-75.0 [facility] HospitalIzxthxeRKTHDRTJMW4437-54-88 21:03:00 Test Item Value Reference Range Interpretation Comments Lymphocytes (test code = Lymphocytes) 5.0 20.0-40.0 [facility] HospitalBiykorgYONGDYZZIV8137-12-22 21:03:00 Test Item Value Reference Range Interpretation Comments Monocytes (test code = Monocytes) 2.4 2.0-12.0 [facility] HospitalAvlaystPPMPXZQDEM9325-00-72 21:03:00 Test Item Value Reference Range Interpretation Comments Basophils (test code = 0.7 See_Comment [Aut omated message] The Basophils) system which ge nerated this result tra nsmitted reference range : <=1.0. The reference r carolynn was not used to int erpret this result as normal/abnormal . [facility] HospitalErdximmPHWPHPHUBU7365-04-08 21:03:00 Test Item Value Reference Range Interpretation Comments Neutrophils # (test code = Neutrophils 10.1 1.5-8.1 #) [facility] HospitalEepwkwnBDMQGSUBZB7352-22-73 21:03:00 Test Item Value Reference Range Interpretation Comments Lymphocytes # (test code = Lymphocytes 0.5 1.0-5.5 #) [facility] HospitalPozfvagPOVHCWCXUN4936-93-02 21:03:00 Test Item Value Reference Range Interpretation Comments Monocytes # (test code 0.3 See_Comment [Aut omated message] The = Monocytes #) system which generated this result tra nsmitted reference range : <=0.8. The reference r carolynn was not used to int erpret this result as normal/abnormal . [facility] HospitalBvmzcfjNSJVOIDGEW7849-44-26 21:03:00 Test Item Value Reference Range Interpretation Comments Basophils # (test code 0.1 See_Comment [Aut omated message] The = Basophils #) system which generated this result tra nsmitted reference range : <=0.2. The reference r carolynn was not used to int erpret this result as normal/abnormal . [facility] TexasPageFairCARCrowdsourcing.orgAC VFCIABP9991-90-07 21:03:00 Test Item Value Reference Range Interpretation Comments Troponin-I (test code no gt See_Comment [Auto mated message] The = Troponin-I) system which g enerated this result transmit todd reference range : <=0.40. The reference r carolynn was not used to interpr et this result as kimberli l/abnormal. [facility] TexasIZI Medical ProductsAC NCMRZGC7703-16-68 21:03:00 Test Item Value Reference Range Interpretation Comments BNP (test code = BNP) 75 [facility] TexasPageFairCHEM YOGNW3475-64-65 21:03:00 Test Item Value Reference Range Interpretation Comments Lipase Lvl (test code = Lipase Lvl) 130 73-393 [facility] TexasHfanludECWVHNOKLTDW0016-09-24 21:03:00 Test Item Value Reference Range Interpretation Comments AGAP (test code = AGAP) 12.6 10.0-20.0 [facility] TexasVbgwsynJGVTNQJFRILT7085-55-96 21:03:00 Test Item Value Reference Range Interpretation Comments B/C Ratio (test code = B/C Ratio) 16 1 6-25 [facility] TexasCnxxeixCNMAURUJDDCL2242-79-68 21:03:00 Test Item Value Reference Range Interpretation Comments Globulin (test code = Globulin) 3.8 2.7-4.2 [facility] TexasBxpoadsRJVGZPCVHGNB5569-10-93 21:03:00 Test Item Value Reference Range Interpretation Comments A/G Ratio (test code = A/G Ratio) 0.9 1 0.7-1.6 [facility] [place]tzcyygXZVRTLZZYREZ6657-13-90 21:03:00 Test Item Value Reference Range Interpretation Comments Glucose Lvl (test code = Glucose Lvl) 177 70-99 [facility]EcnitpmTOZBIFOUJLGE3399-81-40 21:03:00 Test Item Value Reference Range Interpretation Comments BUN (test code = BUN) 35 7-22 [facility] TexasRlmycwyIZRUSHPEOQZD0787-42-43 21:03:00 Test Item Value Reference Range Interpretation Comments Creatinine Lvl (test code = Creatinine 2.24 0.50-1.40 Lvl) [facility] [place]EkxgemrNYOLSDNYPYRE7979-86-94 21:03:00 Test Item Value Reference Range Interpretation Comments Sodium Lvl (test code = Sodium Lvl) 139 135-145 [facility] HospitalVtswfwbUHYMCCZMIGSZ6159-09-18 21:03:00 Test Item Value Reference Range Interpretation Comments Potassium Lvl (test code = Potassium 4.6 3.5-5.1 Lvl) [facility] HospitalTmytvnwYFGIXUTBUESS6754-17-19 21:03:00 Test Item Value Reference Range Interpretation Comments Chloride Lvl (test code = Chloride Lvl) 105 95-109 [facility] HospitalEbmyfzmGYAZOFTDJGMM1119-54-64 21:03:00 Test Item Value Reference Range Interpretation Comments CO2 (test code = CO2) 26 24-32 [facility] HospitalPxlhapaARMJQEWFSQCN6629-03-51 21:03:00 Test Item Value Reference Range Interpretation Comments Calcium Lvl (test code = Calcium Lvl) 9.5 8.5-10.5 [facility] HospitalWkwxmucGLELWGXSNRCG5410-10-74 21:03:00 Test Item Value Reference Range Interpretation Comments Total Protein (test code = Total 7.2 6.4-8.4 Protein) [facility] HospitalTylbgxiZUDUUJHMIWSR1149-97-26 21:03:00 Test Item Value Reference Range Interpretation Comments Albumin Lvl (test code = Albumin Lvl) 3.4 3.5-5.0 [facility] HospitalAgctoeqBHRKUQKDLRWT8680-32-96 21:03:00 Test Item Value Reference Range Interpretation Comments ALT (test code = ALT) 28 See_Comment [Auto mated message] The system which ge nerated this result transmit todd reference range : <=65. The reference range was not used to interpr et this result as kimberli l/abnormal. [facility] HospitalGqrzrwxDLXUEAHDDUHO0422-02-32 21:03:00 Test Item Value Reference Range Interpretation Comments AST (test code = AST) 22 See_Comment [Auto mated message] The system which ge nerated this result transmit todd reference range : <=37. The reference range was not used to interpr et this result as kimberli l/abnormal. [facility] HospitalWoqwuqtGCMDVTBRVAVM5756-85-96 21:03:00 Test Item Value Reference Range Interpretation Comments Alk Phos (test code = Alk Phos) 82 39-136 [facility] HospitalLuyuwjnCADVFDDNTMML1376-91-50 21:03:00 Test Item Value Reference Range Interpretation Comments Bili Total (test code = Bili Total) 0.4 0.2-1.3 [facility] TexasKuuiikiQETHBAZCAGQF0613-44-43 21:03:00 Test Item Value Reference Range Interpretation Comments eGFR (test code = eGFR) 29 [facility]KuqdfyyFLHQCHXFPP2238-10-38 21:03:00 Test Item Value Reference Range Interpretation Comments WBC (test code = WBC) 11.0 3.7-10.4 [facility]awGorgwkwBNTFRUDQIZ3846-71-94 21:03:00 Test Item Value Reference Range Interpretation Comments RBC (test code = RBC) 4.22 4.70-6.10 [facility]awEzwmpqxPUOFEHFUUP4542-40-75 21:03:00 Test Item Value Reference Range Interpretation Comments Hgb (test code = Hgb) 13.4 14.0-18.0 [facility]awXtgwvlmKWHHNWFZKO7907-14-56 21:03:00 Test Item Value Reference Range Interpretation Comments Hct (test code = Hct) 40.2 42.0-54.0 [facility]UapidxeJLVEQKMOMN0431-56-97 21:03:00 Test Item Value Reference Range Interpretation Comments MCV (test code = MCV) 95.2 80.0-94.0 [facility]awKammarbKYWMXYPMGK9128-97-03 21:03:00 Test Item Value Reference Range Interpretation Comments MCH (test code = MCH) 31.7 pg 27.0-31.0 [facility]awKwsbwrzFLQVEDDERC9050-68-59 21:03:00 Test Item Value Reference Range Interpretation Comments MCHC (test code = MCHC) 33.3 32.0-36.0 [facility] HospitalIpsabvcDAOAEWOLJM3998-17-87 21:03:00 Test Item Value Reference Range Interpretation Comments RDW (test code = RDW) 14.3 11.5-14.5 [facility] AND [id number] 23:00:00 Test Item Value Reference Range Interpretation Comments Occult Bld Stl (test Negative (09/29/15 6:00 code = Occult Bld Stl) PM) [facility] AND [id number] 23:00:00 Test Item Value Reference Range Interpretation Comments Occult Bld Stl (test Negative (09/29/15 6:00 code = Occult Bld Stl) PM) [facility] AND [id number] 23:00:00 Test Item Value Reference Range Interpretation Comments Occult Bld Stl (test Negative (09/29/15 6:00 code = Occult Bld Stl) PM) [facility] [place]annUR[facility] [id number] 23:00:00 Test Item Value Reference Range Interpretation Comments Occult Bld Stl (test Negative (09/29/15 6:00 code = Occult Bld Stl) PM) [facility]CHE[facility] CSWGW4881-14-87 13:12:00 Test Item Value Reference Range Interpretation Comments Uric Acid (test code = Uric Acid) 7.9 3.8-8.0 [facility] HospitalKisgrriFJJXRSLIUHVY9182-31-72 13:12:00 Test Item Value Reference Range Interpretation Comments AGAP (test code = AGAP) 11.5 10.0-20.0 [facility] HospitalHkyzsdmSRRVRWODOYFH0507-55-36 13:12:00 Test Item Value Reference Range Interpretation Comments B/C Ratio (test code = B/C Ratio) 20 6-25 [facility] HospitalPcedsbxLWWQACADRAVZ3071-51-63 13:12:00 Test Item Value Reference Range Interpretation Comments Globulin (test code = Globulin) 3.2 2.0-4.0 [facility] HospitalEishcjmJZTPPHYUKRHT1738-16-25 13:12:00 Test Item Value Reference Range Interpretation Comments A/G Ratio (test code = A/G Ratio) 1.4 0.7-1.6 [facility] HospitalHscsffdJZMRMMNPXJVC9784-60-88 13:12:00 Test Item Value Reference Range Interpretation Comments eGFR (test code = eGFR) 49 [facility] HospitalDcyqepiVMKHOQHCUYFN7155-98-09 13:12:00 Test Item Value Reference Range Interpretation Comments Bili Total (test code = Bili Total) 0.5 0.2-1.3 [facility] HospitalKarjjaxUDCVBGJRYJCM6925-56-72 13:12:00 Test Item Value Reference Range Interpretation Comments Sodium Lvl (test code = Sodium Lvl) 140 135-145 [facility] HospitalOeuwzxpTAATGFDFCSVP4451-42-20 13:12:00 Test Item Value Reference Range Interpretation Comments Creatinine Lvl (test code = Creatinine 1.48 0.50-1.40 Lvl) [facility] HospitalQdtxplhSWEGJNDLIREU7923-96-37 13:12:00 Test Item Value Reference Range Interpretation Comments BUN (test code = BUN) 29 7-22 [facility] HospitalZpiwabkHDZXEPYPHIWU4312-22-25 13:12:00 Test Item Value Reference Range Interpretation Comments Glucose Lvl (test code = Glucose Lvl) 123 70-99 [facility] HospitalIqxwfagKVSMGHFOMWPO0741-28-33 13:12:00 Test Item Value Reference Range Interpretation Comments ALT (test code = ALT) 20 See_Comment [Auto mated message] The system which ge nerated this result transmit todd reference range : <=65. The reference range was not used to interpr et this result as kimberli l/abnormal. [facility] HospitalIgumqysAPCMJJFEYPKG2769-10-71 13:12:00 Test Item Value Reference Range Interpretation Comments AST (test code = AST) 9 See_Comment [Auto mated message] The system which ge nerated this result transmit todd reference range : <=37. The reference range was not used to interpr et this result as kimberli l/abnormal. [facility] HospitalGvjjifcTOHRLOSDALDH5834-03-89 13:12:00 Test Item Value Reference Range Interpretation Comments Alk Phos (test code = Alk Phos) 76 39-136 [facility] HospitalUuggnyjARXSYENOLMAR7637-59-94 13:12:00 Test Item Value Reference Range Interpretation Comments Calcium Lvl (test code = Calcium Lvl) 9.2 8.5-10.5 [facility] HospitalIdurcoxGWSCFIAUDQNT5737-06-63 13:12:00 Test Item Value Reference Range Interpretation Comments Albumin Lvl (test code = Albumin Lvl) 4.4 3.5-5.0 [facility] HospitalMfmgyxhSKZKLNYNRFUD2672-75-46 13:12:00 Test Item Value Reference Range Interpretation Comments Potassium Lvl (test code = Potassium 4.5 3.5-5.1 Lvl) [facility] HospitalBsaqoybLGPGNSZJTAEQ4103-82-54 13:12:00 Test Item Value Reference Range Interpretation Comments Total Protein (test code = Total 7.6 6.4-8.4 Protein) [facility] HospitalGcnjgluDQWQPENXBEGN0970-72-00 13:12:00 Test Item Value Reference Range Interpretation Comments CO2 (test code = CO2) 28 24-32 [facility] HospitalGyopepcTPAFQJOLSMYB2470-87-25 13:12:00 Test Item Value Reference Range Interpretation Comments Chloride Lvl (test code = Chloride Lvl) 105 95-109 [facility] CenterGfcndmzWIAXKGZSAC6457-47-36 13:12:00 Test Item Value Reference Range Interpretation Comments Segs (test code = Segs) 60.0 45.0-75.0 [facility] HospitalRljsdbxQVOKTQRSOM4097-35-47 13:12:00 Test Item Value Reference Range Interpretation Comments Eosinophils (test code = 3.3 See_Comment [A utomated message] The Eosinophils) system which ge nerated this result tra nsmitted reference range : <=4.0. The reference r carolynn was not used to int erpret this result as normal/abnormal . [facility] HospitalDksjzmkOYCGUADEDY6725-31-41 13:12:00 Test Item Value Reference Range Interpretation Comments Monocytes (test code = Monocytes) 8.1 2.0-12.0 [facility] HospitalAhdriceZBROTBALYL1728-05-12 13:12:00 Test Item Value Reference Range Interpretation Comments Lymphocytes (test code = Lymphocytes) 27.4 20.0-40.0 [facility] HospitalOceqnowBJLHLHQXRQ4664-37-18 13:12:00 Test Item Value Reference Range Interpretation Comments Monocytes # (test code 0.5 See_Comment [Aut omated message] The = Monocytes #) system which generated this result tra nsmitted reference range : <=0.8. The reference r carolynn was not used to int erpret this result as normal/abnormal . [facility] HospitalMnsswgjBGNBDHRMTB7131-34-54 13:12:00 Test Item Value Reference Range Interpretation Comments Basophils (test code = 1.2 See_Comment [Aut omated message] The Basophils) system which ge nerated this result tra nsmitted reference range : <=1.0. The reference r carolynn was not used to int erpret this result as normal/abnormal . [facility] HospitalNlwmrhnHODJVCNCSB4340-95-48 13:12:00 Test Item Value Reference Range Interpretation Comments Lymphocytes # (test code = Lymphocytes 1.7 1.0-5.5 #) [facility] HospitalClnekizRFCNJNFKLY2563-84-71 13:12:00 Test Item Value Reference Range Interpretation Comments Segs-Bands # (test code = Segs-Bands #) 3.6 1.5-8.1 [facility] HospitalXeevhlhANQQDTMCHU3894-21-96 13:12:00 Test Item Value Reference Range Interpretation Comments Eosinophils # (test code 0.2 See_Comment [A utomated message] The = Eosinophils #) system whic h generated this result tra nsmitted reference range : <=0.5. The reference r carolynn was not used to int erpret this result as normal/abnormal . [facility] HospitalRpqnyrfVCDCBREAMT5860-42-52 13:12:00 Test Item Value Reference Range Interpretation Comments Basophils # (test code 0.1 See_Comment [Aut omated message] The = Basophils #) system which generated this result tra nsmitted reference range : <=0.2. The reference r carolynn was not used to int erpret this result as normal/abnormal . [facility] HospitalFpsuqxjGVXGPJSQGB9799-99-20 13:12:00 Test Item Value Reference Range Interpretation Comments Hgb (test code = Hgb) 13.9 14.0-18.0 [facility] HospitalJsillupAXLROQBBHE4243-63-18 13:12:00 Test Item Value Reference Range Interpretation Comments RBC (test code = RBC) 4.57 4.70-6.10 [facility] HospitalRcclkqaIAQOFXAJMX3884-54-39 13:12:00 Test Item Value Reference Range Interpretation Comments WBC (test code = WBC) 6.1 3.7-10.4 [facility] HospitalHnhelfoYVJMFABPWL7104-56-82 13:12:00 Test Item Value Reference Range Interpretation Comments Hct (test code = Hct) 40.6 42.0-54.0 [facility] HospitalXgapqhgCUOPEHVLPN1149-16-10 13:12:00 Test Item Value Reference Range Interpretation Comments MCH (test code = MCH) 30.4 pg 27.0-31.0 [facility] HospitalTicuyocCULVEIUPMM2805-82-70 13:12:00 Test Item Value Reference Range Interpretation Comments MCV (test code = MCV) 88.9 80.0-94.0 [facility] HospitalNytgeksIMPZRAUSFJ9050-12-78 13:12:00 Test Item Value Reference Range Interpretation Comments MCHC (test code = MCHC) 34.2 32.0-36.0 [facility] HospitalDpspseqIRDKXPHKNX2450-35-74 13:12:00 Test Item Value Reference Range Interpretation Comments Platelet (test code = Platelet) 196 133-450 [facility] HospitalUlajekzSQUHRWCFIY8236-00-87 13:12:00 Test Item Value Reference Range Interpretation Comments RDW (test code = RDW) 13.7 11.5-14.5 [facility] HospitalQgwihbfRWZGCZVHAU0835-00-19 13:12:00 Test Item Value Reference Range Interpretation Comments MPV (test code = MPV) 8.5 7.4-10.4 [facility]wxoskcYKLLZO8866-30-38 13:12:00 Test Item Value Reference Range Interpretation Comments HDL (test code = HDL) 75 [facility] CenterSdpzlfsLSGJSW8018-67-14 13:12:00 Test Item Value Reference Range Interpretation Comments Chol (test code = Chol) 143 [facility] CenterQmarazpZZECMF2534-41-97 13:12:00 Test Item Value Reference Range Interpretation Comments VLDL (test code = VLDL) 19 [facility] CenterNnwpsssKNPHLP5127-74-22 13:12:00 Test Item Value Reference Range Interpretation Comments Trig (test code = Trig) 94 [facility] CenterJouxrmaCLRAYR3627-64-77 13:12:00 Test Item Value Reference Range Interpretation Comments LDL (Calculated) (test code = LDL 49 (Calculated)) [facility]NaexebbQVXSYP9179-09-54 13:12:00 Test Item Value Reference Range Interpretation Comments CHD Risk (test code = CHD Risk) 1.91 4.00-7.30 [facility] ENUJKJLMD4287-91-87 13:12:00 Test Item Value Reference Range Interpretation Comments Hgb A1C (test code = Hgb A1C) 6.9 [facility] AND [id number] 13:12:00 Test Item Value Reference Range Interpretation Comments UA Color (test code = UA Color) Ltyellow [facility] AND [id number] 13:12:00 Test Item Value Reference Range Interpretation Comments UA Urobilinogen (test code = UA <=1.0 mg/dL 0.1-1.0 Urobilinogen) [facility] AND [id number] 13:12:00 Test Item Value Reference Range Interpretation Comments UA Ketones (test code = UA Negative mg/dL Ketones) [facility] AND [id number] 13:12:00 Test Item Value Reference Range Interpretation Comments UA Glucose (test code = UA Negative mg/dL Glucose) [facility] AND [id number] 13:12:00 Test Item Value Reference Range Interpretation Comments UA Protein (test code = UA Protein) 100 mg/dL [facility] AND [id number] 13:12:00 Test Item Value Reference Range Interpretation Comments UA Leuk Est (test Negative (09/28/15 8:12 code = UA Leuk Est) AM) [facility] AND [id number] 13:12:00 Test Item Value Reference Range Interpretation Comments UA Nitrite (test code Negative (09/28/15 8:12 = UA Nitrite) AM) [facility] [id number] 13:12:00 Test Item Value Reference Range Interpretation Comments UA Bili (test code = Negative *NA*(09/28/15 UA Bili) 8:12 AM) [facility] [id number] 13:12:00 Test Item Value Reference Range Interpretation Comments UA Sq Epi (test code = UA Sq Epi) None Seen [facility]ann[facility] [id number] 13:12:00 Test Item Value Reference Range Interpretation Comments UA Blood (test code = Negative (09/28/15 8:12 UA Blood) AM) [facility] AND [id number] 13:12:00 Test Item Value Reference Range Interpretation Comments UA pH (test code = UA pH) 6.0 5.0-8.0 [facility]ann[facility] AND [id number] 13:12:00 Test Item Value Reference Range Interpretation Comments UA Spec Grav (test code = UA Spec Grav) 1.010 [facility]ann[facility] [id number] 13:12:00 Test Item Value Reference Range Interpretation Comments UA Turbidity (test code = Clear (09/28/15 8:12 UA Turbidity) AM) [facility] [id number] 13:12:00 Test Item Value Reference Range Interpretation Comments U Alb/Crea (test code = U Alb/Crea) 712.8 [facility] CenterUR[facility] [id number] 13:12:00 Test Item Value Reference Range Interpretation Comments U Microalb (test code = U Microalb) 345.0 [facility] [place] [id number] 13:12:00 Test Item Value Reference Range Interpretation Comments U Creatinine (test code = U Creatinine) 48.40 [facility] [id number] 13:12:00 Test Item Value Reference Range Interpretation Comments Uric Acid (test code = Uric Acid) 7.9 3.8-8.0 [facility] SolbkqkHOZQDRHDFCMD9847-17-98 13:12:00 Test Item Value Reference Range Interpretation Comments AGAP (test code = AGAP) 11.5 10.0-20.0 [facility] KjcccjiUECZOVCTSJHJ7982-33-43 13:12:00 Test Item Value Reference Range Interpretation Comments B/C Ratio (test code = B/C Ratio) 20 6-25 [facility] HospitalAkwomysSKFUYHTXUBHV1287-18-83 13:12:00 Test Item Value Reference Range Interpretation Comments Globulin (test code = Globulin) 3.2 2.0-4.0 [facility] HospitalDwhfogmKXPKAJLPRPKC6828-82-08 13:12:00 Test Item Value Reference Range Interpretation Comments A/G Ratio (test code = A/G Ratio) 1.4 0.7-1.6 [facility] HospitalLswbcvbSFWWNGWNXWDX1068-72-42 13:12:00 Test Item Value Reference Range Interpretation Comments eGFR (test code = eGFR) 49 [facility] HospitalVqceudvAPXGRFZLPFPE1497-65-30 13:12:00 Test Item Value Reference Range Interpretation Comments Bili Total (test code = Bili Total) 0.5 0.2-1.3 [facility] HospitalZtlnjboXTBCZACFCJRH9838-51-46 13:12:00 Test Item Value Reference Range Interpretation Comments Sodium Lvl (test code = Sodium Lvl) 140 135-145 [facility] HospitalDmllcsvNQWRSVOYFYUI5663-95-92 13:12:00 Test Item Value Reference Range Interpretation Comments Creatinine Lvl (test code = Creatinine 1.48 0.50-1.40 Lvl) [facility] HospitalOmmlcwpHHZZUSZJEYUG7459-44-06 13:12:00 Test Item Value Reference Range Interpretation Comments BUN (test code = BUN) 29 7-22 [facility] HospitalWcqzugbKYYDCLANFPFN9802-98-23 13:12:00 Test Item Value Reference Range Interpretation Comments Glucose Lvl (test code = Glucose Lvl) 123 70-99 [facility] HospitalVhelmqkEQHCEFPYGPYX4500-58-90 13:12:00 Test Item Value Reference Range Interpretation Comments ALT (test code = ALT) 20 See_Comment [Auto mated message] The system which ge nerated this result transmit todd reference range : <=65. The reference range was not used to interpr et this result as kimberli l/abnormal. [facility] HospitalZiniadnXMHFCBVTZUIG1785-35-24 13:12:00 Test Item Value Reference Range Interpretation Comments AST (test code = AST) 9 See_Comment [Auto mated message] The system which ge nerated this result transmit todd reference range : <=37. The reference range was not used to interpr et this result as kimberli l/abnormal. [facility] HospitalApfwpxpLRZQAJBRKIDE3042-44-27 13:12:00 Test Item Value Reference Range Interpretation Comments Alk Phos (test code = Alk Phos) 76 39-136 [facility] HospitalRduxsfuMDHWHCQCDAWP8258-08-42 13:12:00 Test Item Value Reference Range Interpretation Comments Calcium Lvl (test code = Calcium Lvl) 9.2 8.5-10.5 [facility] HospitalJyzpukqADWXFBFQMWEV8206-35-55 13:12:00 Test Item Value Reference Range Interpretation Comments Albumin Lvl (test code = Albumin Lvl) 4.4 3.5-5.0 [facility] HospitalBswihbwNZKQWTXKOBOI5573-04-90 13:12:00 Test Item Value Reference Range Interpretation Comments Potassium Lvl (test code = Potassium 4.5 3.5-5.1 Lvl) [facility] HospitalJfrvmlpKNOKCGNFTDZA8110-65-04 13:12:00 Test Item Value Reference Range Interpretation Comments Total Protein (test code = Total 7.6 6.4-8.4 Protein) [facility] HospitalYntmikpBSSNARKKRSLM5219-00-80 13:12:00 Test Item Value Reference Range Interpretation Comments CO2 (test code = CO2) 28 24-32 [facility] HospitalLxwpdaoXRPLGHCIMMTH8983-85-44 13:12:00 Test Item Value Reference Range Interpretation Comments Chloride Lvl (test code = Chloride Lvl) 105 95-109 [facility] HospitalQxboaclRKDCFJJAXZ3924-31-87 13:12:00 Test Item Value Reference Range Interpretation Comments Segs (test code = Segs) 60.0 45.0-75.0 [facility] HospitalHlylbtkEMMASWLJOB5464-88-47 13:12:00 Test Item Value Reference Range Interpretation Comments Eosinophils (test code = 3.3 See_Comment [A utomated message] The Eosinophils) system which ge nerated this result tra nsmitted reference range : <=4.0. The reference r carolynn was not used to int erpret this result as normal/abnormal . [facility] HospitalYgpndkjFCGJLRIIGN0475-37-13 13:12:00 Test Item Value Reference Range Interpretation Comments Monocytes (test code = Monocytes) 8.1 2.0-12.0 [facility] HospitalPhlzprcAFNGGUMFQR5834-51-04 13:12:00 Test Item Value Reference Range Interpretation Comments Lymphocytes (test code = Lymphocytes) 27.4 20.0-40.0 [place] 111616-07-27 13:12:00 Test Item Value Reference Range Interpretation Comments Monocytes # (test code 0.5 See_Comment [Aut omated message] The = Monocytes #) system which generated this result tra nsmitted reference range : <=0.8. The reference r carolynn was not used to int erpret this result as normal/abnormal . [facility] HospitalYifjxqrEVFZFKYYKI5229-75-27 13:12:00 Test Item Value Reference Range Interpretation Comments Basophils (test code = 1.2 See_Comment [Aut omated message] The Basophils) system which ge nerated this result tra nsmitted reference range : <=1.0. The reference r carolynn was not used to int erpret this result as normal/abnormal . [facility] HospitalLnvavhiXRGMRFKHCP5872-08-69 13:12:00 Test Item Value Reference Range Interpretation Comments Lymphocytes # (test code = Lymphocytes 1.7 1.0-5.5 #) [facility] HospitalGjvuffqEXALGBFGBV6215-94-03 13:12:00 Test Item Value Reference Range Interpretation Comments Segs-Bands # (test code = Segs-Bands #) 3.6 1.5-8.1 [facility] HospitalTipwshsKNOCAIKLSR5803-35-74 13:12:00 Test Item Value Reference Range Interpretation Comments Eosinophils # (test code 0.2 See_Comment [A utomated message] The = Eosinophils #) system whic h generated this result tra nsmitted reference range : <=0.5. The reference r carolynn was not used to int erpret this result as normal/abnormal . [facility] HospitalAhzrpldMSAGBJOFFK1530-61-52 13:12:00 Test Item Value Reference Range Interpretation Comments Basophils # (test code 0.1 See_Comment [Aut omated message] The = Basophils #) system which generated this result tra nsmitted reference range : <=0.2. The reference r carolynn was not used to int erpret this result as normal/abnormal . [facility] HospitalFrhwlbbZEMNVCKOMX0528-20-91 13:12:00 Test Item Value Reference Range Interpretation Comments Hgb (test code = Hgb) 13.9 14.0-18.0 [facility]TbdlrbaOODYXKXDDA5394-47-26 13:12:00 Test Item Value Reference Range Interpretation Comments RBC (test code = RBC) 4.57 4.70-6.10 [place] [id number] 13:12:00 Test Item Value Reference Range Interpretation Comments WBC (test code = WBC) 6.1 3.7-10.4 [facility] HospitalLaeypegQMXNUCLDKY2224-94-49 13:12:00 Test Item Value Reference Range Interpretation Comments Hct (test code = Hct) 40.6 42.0-54.0 [facility] HospitalHieriwrBYJIFHHINW8047-23-92 13:12:00 Test Item Value Reference Range Interpretation Comments MCH (test code = MCH) 30.4 pg 27.0-31.0 [facility] HospitalVixlanmBIMJBHTKBA1706-22-77 13:12:00 Test Item Value Reference Range Interpretation Comments MCV (test code = MCV) 88.9 80.0-94.0 [facility] HospitalWqqxdrsUSLOAICNRM8437-53-07 13:12:00 Test Item Value Reference Range Interpretation Comments MCHC (test code = MCHC) 34.2 32.0-36.0 [facility] HospitalUpeklgzTZGUIAZDTM9251-28-79 13:12:00 Test Item Value Reference Range Interpretation Comments Platelet (test code = Platelet) 196 133-450 [facility] HospitalNsblgzoPLPRCHRDPP1121-67-58 13:12:00 Test Item Value Reference Range Interpretation Comments RDW (test code = RDW) 13.7 11.5-14.5 [facility] HospitalCuwzgveMJOCWQGNMA5388-72-62 13:12:00 Test Item Value Reference Range Interpretation Comments MPV (test code = MPV) 8.5 7.4-10.4 [facility]HBBSUM5329[facility]-19 13:12:00 Test Item Value Reference Range Interpretation Comments HDL (test code = HDL) 75 [facility]MxkltxzYHIQRI0162-73-47 13:12:00 Test Item Value Reference Range Interpretation Comments Chol (test code = Chol) 143 [facility]AngwzvqNIVMHU2532-37-04 13:12:00 Test Item Value Reference Range Interpretation Comments VLDL (test code = VLDL) 19 [facility] TexasVdjcpyeAMPYSS7797-51-27 13:12:00 Test Item Value Reference Range Interpretation Comments Trig (test code = Trig) 94 [facility] TexasEnolhasXEIVOE6020-57-42 13:12:00 Test Item Value Reference Range Interpretation Comments LDL (Calculated) (test code = LDL 49 (Calculated)) [facility] TexasMlopljdCBVKTX8695-86-80 13:12:00 Test Item Value Reference Range Interpretation Comments CHD Risk (test code = CHD Risk) 1.91 4.00-7.30 [facility] QDUVJWWIN5781-38-90 13:12:00 Test Item Value Reference Range Interpretation Comments Hgb A1C (test code = Hgb A1C) 6.9 [facility] AND [id number] 13:12:00 Test Item Value Reference Range Interpretation Comments UA Color (test code = UA Color) Ltyellow [facility] AND [id number] 13:12:00 Test Item Value Reference Range Interpretation Comments UA Urobilinogen (test code = UA <=1.0 mg/dL 0.1-1.0 Urobilinogen) [facility] AND [id number] 13:12:00 Test Item Value Reference Range Interpretation Comments UA Ketones (test code = UA Negative mg/dL Ketones) [facility] AND [id number] 13:12:00 Test Item Value Reference Range Interpretation Comments UA Glucose (test code = UA Negative mg/dL Glucose) [facility] AND [id number] 13:12:00 Test Item Value Reference Range Interpretation Comments UA Protein (test code = UA Protein) 100 mg/dL [facility] AND [id number] 13:12:00 Test Item Value Reference Range Interpretation Comments UA Leuk Est (test Negative (09/28/15 8:12 code = UA Leuk Est) AM) [facility] AND [id number] 13:12:00 Test Item Value Reference Range Interpretation Comments UA Nitrite (test code Negative (09/28/15 8:12 = UA Nitrite) AM) [facility] AND [id number] 13:12:00 Test Item Value Reference Range Interpretation Comments UA Bili (test code = Negative *NA*(09/28/15 UA Bili) 8:12 AM) [facility] AND [id number] 13:12:00 Test Item Value Reference Range Interpretation Comments UA Sq Epi (test code = UA Sq Epi) None Seen [facility] AND [id number] 13:12:00 Test Item Value Reference Range Interpretation Comments UA Blood (test code = Negative (09/28/15 8:12 UA Blood) AM) [facility] AND [id number] 13:12:00 Test Item Value Reference Range Interpretation Comments UA pH (test code = UA pH) 6.0 5.0-8.0 [facility] AND [id number] 13:12:00 Test Item Value Reference Range Interpretation Comments UA Spec Grav (test code = UA Spec Grav) 1.010 [facility] AND [id number] 13:12:00 Test Item Value Reference Range Interpretation Comments UA Turbidity (test code = Clear (09/28/15 8:12 UA Turbidity) AM) [facility] [id number] 13:12:00 Test Item Value Reference Range Interpretation Comments U Alb/Crea (test code = U Alb/Crea) 712.8 [facility] [id number] 13:12:00 Test Item Value Reference Range Interpretation Comments U Microalb (test code = U Microalb) 345.0 [facility] [id number] 13:12:00 Test Item Value Reference Range Interpretation Comments U Creatinine (test code = U Creatinine) 48.40 [facility] [id number] 13:12:00 Test Item Value Reference Range Interpretation Comments Uric Acid (test code = Uric Acid) 7.9 3.8-8.0 [facility]FnsejyiWLICXNPTSKXP9731-86-73 13:12:00 Test Item Value Reference Range Interpretation Comments AGAP (test code = AGAP) 11.5 10.0-20.0 [facility] HospitalNlyddxeGXBZTAAUMGXI1543-86-97 13:12:00 Test Item Value Reference Range Interpretation Comments B/C Ratio (test code = B/C Ratio) 20 6-25 [facility] HospitalXsybsouTKTAVQGCFFUC8474-73-66 13:12:00 Test Item Value Reference Range Interpretation Comments Globulin (test code = Globulin) 3.2 2.0-4.0 [facility] HospitalZixndexRJAJKSWIXUCO6768-16-07 13:12:00 Test Item Value Reference Range Interpretation Comments A/G Ratio (test code = A/G Ratio) 1.4 0.7-1.6 [facility] HospitalMbjbruiMYNZZVGESXPE0581-47-19 13:12:00 Test Item Value Reference Range Interpretation Comments eGFR (test code = eGFR) 49 [facility] HospitalBanakhlLUXTHGDTSRHT1073-83-15 13:12:00 Test Item Value Reference Range Interpretation Comments Bili Total (test code = Bili Total) 0.5 0.2-1.3 [facility] HospitalRsffphvYKEIZIZSLKTR8715-08-24 13:12:00 Test Item Value Reference Range Interpretation Comments Sodium Lvl (test code = Sodium Lvl) 140 135-145 [facility] HospitalEbntzstIVIWIHLTPINE3582-24-57 13:12:00 Test Item Value Reference Range Interpretation Comments Creatinine Lvl (test code = Creatinine 1.48 0.50-1.40 Lvl) [facility] HospitalGwubhdbCKTXLGFBIJCJ9322-51-18 13:12:00 Test Item Value Reference Range Interpretation Comments BUN (test code = BUN) 29 7-22 [facility] HospitalWanbraoEHUINRXKEEIB0981-64-35 13:12:00 Test Item Value Reference Range Interpretation Comments Glucose Lvl (test code = Glucose Lvl) 123 70-99 [facility] HospitalXyqnhorVUJINKPICTVZ1674-72-65 13:12:00 Test Item Value Reference Range Interpretation Comments ALT (test code = ALT) 20 See_Comment [Auto mated message] The system which ge nerated this result transmit todd reference range : <=65. The reference range was not used to interpr et this result as kimberli l/abnormal. [facility] HospitalDluhlaaGAPSWSZCQXCJ3675-49-80 13:12:00 Test Item Value Reference Range Interpretation Comments AST (test code = AST) 9 See_Comment [Auto mated message] The system which ge nerated this result transmit todd reference range : <=37. The reference range was not used to interpr et this result as kimberli l/abnormal. [facility] HospitalSiqgopfZYPQEAPYAVXL2132-49-45 13:12:00 Test Item Value Reference Range Interpretation Comments Alk Phos (test code = Alk Phos) 76 39-136 [facility] HospitalHgxbxtwYELMCWFSJGIT0741-28-79 13:12:00 Test Item Value Reference Range Interpretation Comments Calcium Lvl (test code = Calcium Lvl) 9.2 8.5-10.5 [facility] HospitalZpwnbxwSQKYYKCCHMSG8807-27-64 13:12:00 Test Item Value Reference Range Interpretation Comments Albumin Lvl (test code = Albumin Lvl) 4.4 3.5-5.0 [facility] HospitalOrsgxafZAGQHHAVEKMR7615-61-59 13:12:00 Test Item Value Reference Range Interpretation Comments Potassium Lvl (test code = Potassium 4.5 3.5-5.1 Lvl) [facility] HospitalRtwoyufIEHMXZMSXLXH0205-90-26 13:12:00 Test Item Value Reference Range Interpretation Comments Total Protein (test code = Total 7.6 6.4-8.4 Protein) [facility] HospitalCynsecnZSGXMEQWDVPZ2737-24-39 13:12:00 Test Item Value Reference Range Interpretation Comments CO2 (test code = CO2) 28 24-32 [facility] HospitalOrustseJKFOWNMGQTVC8978-32-81 13:12:00 Test Item Value Reference Range Interpretation Comments Chloride Lvl (test code = Chloride Lvl) 105 95-109 [facility] HospitalRxkufdoFICNIUCYCM0141-25-34 13:12:00 Test Item Value Reference Range Interpretation Comments Segs (test code = Segs) 60.0 45.0-75.0 [facility] HospitalOvcfzsxJMAUOGRTLT4669-08-53 13:12:00 Test Item Value Reference Range Interpretation Comments Eosinophils (test code = 3.3 See_Comment [A utomated message] The Eosinophils) system which ge nerated this result tra nsmitted reference range : <=4.0. The reference r carolynn was not used to int erpret this result as normal/abnormal . [facility] HospitalCtebhpkPSRSFLRTMV9271-72-75 13:12:00 Test Item Value Reference Range Interpretation Comments Monocytes (test code = Monocytes) 8.1 2.0-12.0 [facility] HospitalZldxjxlSXSUCBWGDX8239-58-99 13:12:00 Test Item Value Reference Range Interpretation Comments Lymphocytes (test code = Lymphocytes) 27.4 20.0-40.0 [facility] HospitalMcghwdvWCKGMHYRVW0420-35-30 13:12:00 Test Item Value Reference Range Interpretation Comments Monocytes # (test code 0.5 See_Comment [Aut omated message] The = Monocytes #) system which generated this result tra nsmitted reference range : <=0.8. The reference r carolynn was not used to int erpret this result as normal/abnormal . [facility] HospitalXeeffaaUUXDDOPGRC1095-41-72 13:12:00 Test Item Value Reference Range Interpretation Comments Basophils (test code = 1.2 See_Comment [Aut omated message] The Basophils) system which ge nerated this result tra nsmitted reference range : <=1.0. The reference r carolynn was not used to int erpret this result as normal/abnormal . [facility] HospitalFgtkvngHTHLUCZWOS3928-57-39 13:12:00 Test Item Value Reference Range Interpretation Comments Lymphocytes # (test code = Lymphocytes 1.7 1.0-5.5 #) [facility] HospitalWqaeimlPPEVPQJKAV9422-72-07 13:12:00 Test Item Value Reference Range Interpretation Comments Segs-Bands # (test code = Segs-Bands #) 3.6 1.5-8.1 [facility] HospitalZofepjmQJDOLAVBDJ6481-64-65 13:12:00 Test Item Value Reference Range Interpretation Comments Eosinophils # (test code 0.2 See_Comment [A utomated message] The = Eosinophils #) system whic h generated this result tra nsmitted reference range : <=0.5. The reference r carolynn was not used to int erpret this result as normal/abnormal . [facility] HospitalDcxxejnLOZGTQHHRK1371-33-19 13:12:00 Test Item Value Reference Range Interpretation Comments Basophils # (test code 0.1 See_Comment [Aut omated message] The = Basophils #) system which generated this result tra nsmitted reference range : <=0.2. The reference r carolynn was not used to int erpret this result as normal/abnormal . [facility] HospitalFduigupFFSNJBHDKB5488-57-28 13:12:00 Test Item Value Reference Range Interpretation Comments Hgb (test code = Hgb) 13.9 14.0-18.0 [facility] HospitalPmdsqqaFZPYDULSFZ3803-86-20 13:12:00 Test Item Value Reference Range Interpretation Comments RBC (test code = RBC) 4.57 4.70-6.10 [facility] HospitalLvekvmsHSUOPTSHHR2474-21-16 13:12:00 Test Item Value Reference Range Interpretation Comments WBC (test code = WBC) 6.1 3.7-10.4 [facility] HospitalWcdzgcbPZVNGVDFMF1851-81-25 13:12:00 Test Item Value Reference Range Interpretation Comments Hct (test code = Hct) 40.6 42.0-54.0 [facility] HospitalGhstrvvQSKPUNSNEV3418-68-84 13:12:00 Test Item Value Reference Range Interpretation Comments MCH (test code = MCH) 30.4 pg 27.0-31.0 [facility] HospitalMmvseggCEYLVEMKQK7336-10-55 13:12:00 Test Item Value Reference Range Interpretation Comments MCV (test code = MCV) 88.9 80.0-94.0 [facility] HospitalFunpvamFXTMZPSTMD6045-22-62 13:12:00 Test Item Value Reference Range Interpretation Comments MCHC (test code = MCHC) 34.2 32.0-36.0 [facility] CenterVrpjvdxSBLPBNEWTE2241-90-14 13:12:00 Test Item Value Reference Range Interpretation Comments Platelet (test code = Platelet) 196 133-450 [facility]JvjxzbbXTHWOXKOWM6411-11-04 13:12:00 Test Item Value Reference Range Interpretation Comments RDW (test code = RDW) 13.7 11.5-14.5 [facility]awTymtspdFREEATICLJ3817-00-22 13:12:00 Test Item Value Reference Range Interpretation Comments MPV (test code = MPV) 8.5 7.4-10.4 [facility] CenterLfqbzumBCNNFA5194-86-25 13:12:00 Test Item Value Reference Range Interpretation Comments HDL (test code = HDL) 75 [facility] CenterEdrmslhTELBIB3069-04-16 13:12:00 Test Item Value Reference Range Interpretation Comments Chol (test code = Chol) 143 [facility] CenterWkuticxEILXDN4792-12-25 13:12:00 Test Item Value Reference Range Interpretation Comments VLDL (test code = VLDL) 19 [facility] CenterIvaskojDJYMIU5333-18-93 13:12:00 Test Item Value Reference Range Interpretation Comments Trig (test code = Trig) 94 [facility] CenterYiodptxJHHZOE7761-18-53 13:12:00 Test Item Value Reference Range Interpretation Comments LDL (Calculated) (test code = LDL 49 (Calculated)) [facility] CenterDivdonzNOWDFS2997-09-36 13:12:00 Test Item Value Reference Range Interpretation Comments CHD Risk (test code = CHD Risk) 1.91 4.00-7.30 [facility] NNEDXKGLY2520-98-62 13:12:00 Test Item Value Reference Range Interpretation Comments Hgb A1C (test code = Hgb A1C) 6.9 [facility] AND [id number] 13:12:00 Test Item Value Reference Range Interpretation Comments UA Color (test code = UA Color) Ltyellow [facility] AND [id number] 13:12:00 Test Item Value Reference Range Interpretation Comments UA Urobilinogen (test code = UA <=1.0 mg/dL 0.1-1.0 Urobilinogen) [facility] AND [id number] 13:12:00 Test Item Value Reference Range Interpretation Comments UA Ketones (test code = UA Negative mg/dL Ketones) [facility] AND [id number] 13:12:00 Test Item Value Reference Range Interpretation Comments UA Glucose (test code = UA Negative mg/dL Glucose) [facility] AND [id number] 13:12:00 Test Item Value Reference Range Interpretation Comments UA Protein (test code = UA Protein) 100 mg/dL [facility] AND [id number] 13:12:00 Test Item Value Reference Range Interpretation Comments UA Leuk Est (test Negative (09/28/15 8:12 code = UA Leuk Est) AM) [facility] AND [id number] 13:12:00 Test Item Value Reference Range Interpretation Comments UA Nitrite (test code Negative (09/28/15 8:12 = UA Nitrite) AM) [facility] AND [id number] 13:12:00 Test Item Value Reference Range Interpretation Comments UA Bili (test code = Negative *NA*(09/28/15 UA Bili) 8:12 AM) [facility] AND [id number] 13:12:00 Test Item Value Reference Range Interpretation Comments UA Sq Epi (test code = UA Sq Epi) None Seen [facility] AND [id number] 13:12:00 Test Item Value Reference Range Interpretation Comments UA Blood (test code = Negative (09/28/15 8:12 UA Blood) AM) [facility] AND [id number] 13:12:00 Test Item Value Reference Range Interpretation Comments UA pH (test code = UA pH) 6.0 5.0-8.0 [facility] AND [id number] 13:12:00 Test Item Value Reference Range Interpretation Comments UA Spec Grav (test code = UA Spec Grav) 1.010 [facility] AND [id number] 13:12:00 Test Item Value Reference Range Interpretation Comments UA Turbidity (test code = Clear (09/28/15 8:12 UA Turbidity) AM) [facility]2016-07-27 13:12:00 Test Item Value Reference Range Interpretation Comments U Alb/Crea (test code = U Alb/Crea) 712.8 [facility]2016-07-27 13:12:00 Test Item Value Reference Range Interpretation Comments U Microalb (test code = U Microalb) 345.0 [facility] CenterURINE EXBG0387-92-10 13:12:00 Test Item Value Reference Range Interpretation Comments U Creatinine (test code = U Creatinine) 48.40 [facility] CenterCHEM QQPAW0212-53-80 13:12:00 Test Item Value Reference Range Interpretation Comments Uric Acid (test code = Uric Acid) 7.9 3.8-8.0 [facility] HospitalZlxqkmwDCXCZOOJNGTH7169-37-46 13:12:00 Test Item Value Reference Range Interpretation Comments AGAP (test code = AGAP) 11.5 10.0-20.0 [facility] HospitalCpapwxyKMOGZVSDATRA4417-84-40 13:12:00 Test Item Value Reference Range Interpretation Comments B/C Ratio (test code = B/C Ratio) 20 6-25 [facility] HospitalGwjsclzTFFMMKOIIYVF6068-33-06 13:12:00 Test Item Value Reference Range Interpretation Comments Globulin (test code = Globulin) 3.2 2.0-4.0 [facility] HospitalVhphbsyTQLXLBKIYFOF5479-47-47 13:12:00 Test Item Value Reference Range Interpretation Comments A/G Ratio (test code = A/G Ratio) 1.4 0.7-1.6 [facility] HospitalThtmfuuJMSFABFBQQYY6436-53-09 13:12:00 Test Item Value Reference Range Interpretation Comments eGFR (test code = eGFR) 49 [facility] HospitalVpkyvhnQMTIEXDZOTMC4692-35-30 13:12:00 Test Item Value Reference Range Interpretation Comments Bili Total (test code = Bili Total) 0.5 0.2-1.3 [facility] HospitalPulhisrZIXVTMYTLUGV2438-26-65 13:12:00 Test Item Value Reference Range Interpretation Comments Sodium Lvl (test code = Sodium Lvl) 140 135-145 [facility] HospitalNerasvaQSFITOLYTOPB6461-22-30 13:12:00 Test Item Value Reference Range Interpretation Comments Creatinine Lvl (test code = Creatinine 1.48 0.50-1.40 Lvl) [facility] HospitalSgimdqmUQACALMNTRPN2707-78-71 13:12:00 Test Item Value Reference Range Interpretation Comments BUN (test code = BUN) 29 7-22 [facility] HospitalAwjxddvDLYGEHFWFRXG1433-36-74 13:12:00 Test Item Value Reference Range Interpretation Comments Glucose Lvl (test code = Glucose Lvl) 123 70-99 [facility] HospitalMleldupTWCJUFFUNXXA7611-01-61 13:12:00 Test Item Value Reference Range Interpretation Comments ALT (test code = ALT) 20 See_Comment [Auto mated message] The system which ge nerated this result transmit todd reference range : <=65. The reference range was not used to interpr et this result as kimberli l/abnormal. [facility] HospitalBmhnllyFNUXHSPSTEYY7937-12-91 13:12:00 Test Item Value Reference Range Interpretation Comments AST (test code = AST) 9 See_Comment [Auto mated message] The system which ge nerated this result transmit todd reference range : <=37. The reference range was not used to interpr et this result as kimberli l/abnormal. [facility] HospitalEefhzlkIZKHKQLKAEAY1208-23-23 13:12:00 Test Item Value Reference Range Interpretation Comments Alk Phos (test code = Alk Phos) 76 39-136 [facility] HospitalAykhbceILFDHRFYBQVV3314-15-81 13:12:00 Test Item Value Reference Range Interpretation Comments Calcium Lvl (test code = Calcium Lvl) 9.2 8.5-10.5 [facility] HospitalTvmentgIJWSOSBEBUHT6083-74-15 13:12:00 Test Item Value Reference Range Interpretation Comments Albumin Lvl (test code = Albumin Lvl) 4.4 3.5-5.0 [facility] HospitalKvisvbfZVMZIVXHHWFR0213-25-08 13:12:00 Test Item Value Reference Range Interpretation Comments Potassium Lvl (test code = Potassium 4.5 3.5-5.1 Lvl) [facility] HospitalFnukmxsHZOXXTWNYPGB5942-63-72 13:12:00 Test Item Value Reference Range Interpretation Comments Total Protein (test code = Total 7.6 6.4-8.4 Protein) [facility] HospitalUguirlbURRDOGCUIYWB8038-09-62 13:12:00 Test Item Value Reference Range Interpretation Comments CO2 (test code = CO2) 28 24-32 [facility] HospitalPcuxmlfZCZLAIIUNGKK0308-65-55 13:12:00 Test Item Value Reference Range Interpretation Comments Chloride Lvl (test code = Chloride Lvl) 105 95-109 [facility] HospitalXvbsawrHKIVXEWYXU0064-47-14 13:12:00 Test Item Value Reference Range Interpretation Comments Segs (test code = Segs) 60.0 45.0-75.0 [facility] HospitalFsppgejIRUZGIUZQH3977-61-51 13:12:00 Test Item Value Reference Range Interpretation Comments Eosinophils (test code = 3.3 See_Comment [A utomated message] The Eosinophils) system which ge nerated this result tra nsmitted reference range : <=4.0. The reference r carolynn was not used to int erpret this result as normal/abnormal . [facility] HospitalWbqauafPJVXRLZVQS7373-21-19 13:12:00 Test Item Value Reference Range Interpretation Comments Monocytes (test code = Monocytes) 8.1 2.0-12.0 [facility] HospitalAllnxzrAFIZZVJYNE2065-36-98 13:12:00 Test Item Value Reference Range Interpretation Comments Lymphocytes (test code = Lymphocytes) 27.4 20.0-40.0 [facility] HospitalWbpwkiuWIUDGOBAVC8294-80-22 13:12:00 Test Item Value Reference Range Interpretation Comments Monocytes # (test code 0.5 See_Comment [Aut omated message] The = Monocytes #) system which generated this result tra nsmitted reference range : <=0.8. The reference r carolynn was not used to int erpret this result as normal/abnormal . [facility] HospitalOechqrhTCLHFFNPNF7743-92-05 13:12:00 Test Item Value Reference Range Interpretation Comments Basophils (test code = 1.2 See_Comment [Aut omated message] The Basophils) system which ge nerated this result tra nsmitted reference range : <=1.0. The reference r carolynn was not used to int erpret this result as normal/abnormal . [facility] HospitalYiqyrecVNAPWCYABD9339-32-10 13:12:00 Test Item Value Reference Range Interpretation Comments Lymphocytes # (test code = Lymphocytes 1.7 1.0-5.5 #) [facility] HospitalXwcjsidMOCKFYMMGF4048-08-55 13:12:00 Test Item Value Reference Range Interpretation Comments Segs-Bands # (test code = Segs-Bands #) 3.6 1.5-8.1 [facility] HospitalXxjsdmcBCNAWAKSPZ1465-63-28 13:12:00 Test Item Value Reference Range Interpretation Comments Eosinophils # (test code 0.2 See_Comment [A utomated message] The = Eosinophils #) system whic h generated this result tra nsmitted reference range : <=0.5. The reference r carolynn was not used to int erpret this result as normal/abnormal . [facility] HospitalCvjhpyqUKFKKADXGX1608-73-52 13:12:00 Test Item Value Reference Range Interpretation Comments Basophils # (test code 0.1 See_Comment [Aut omated message] The = Basophils #) system which generated this result tra nsmitted reference range : <=0.2. The reference r carolynn was not used to int erpret this result as normal/abnormal . [facility] HospitalVynoyoxZKLXXKCEUP6884-73-41 13:12:00 Test Item Value Reference Range Interpretation Comments Hgb (test code = Hgb) 13.9 14.0-18.0 [facility] HospitalUplvnjyBXWMSLYNQO3913-06-76 13:12:00 Test Item Value Reference Range Interpretation Comments RBC (test code = RBC) 4.57 4.70-6.10 [id number] 13:12:00 Test Item Value Reference Range Interpretation Comments WBC (test code = WBC) 6.1 3.7-10.4 [id number] 13:12:00 Test Item Value Reference Range Interpretation Comments Hct (test code = Hct) 40.6 42.0-54.0 [facility]HxkaxeyQEIRGHVBGF8988-06-45 13:12:00 Test Item Value Reference Range Interpretation Comments MCH (test code = MCH) 30.4 pg 27.0-31.0 [id number] 13:12:00 Test Item Value Reference Range Interpretation Comments MCV (test code = MCV) 88.9 80.0-94.0 [facility]WgkjtweEGLTDBJPTW5628-12-94 13:12:00 Test Item Value Reference Range Interpretation Comments MCHC (test code = MCHC) 34.2 32.0-36.0 [id number] 13:12:00 Test Item Value Reference Range Interpretation Comments Platelet (test code = Platelet) 196 133-450 [facility] Hos[id number] 13:12:00 Test Item Value Reference Range Interpretation Comments RDW (test code = RDW) 13.7 11.5-14.5 [facility] H[id number] 13:12:00 Test Item Value Reference Range Interpretation Comments MPV (test code = MPV) 8.5 7.4-10.4 [id number] 13:12:00 Test Item Value Reference Range Interpretation Comments HDL (test code = HDL) 75 [id number] 13:12:00 Test Item Value Reference Range Interpretation Comments Chol (test code = Chol) 143 [facility]FfmdxfqUTQHSG0599-26-39 13:12:00 Test Item Value Reference Range Interpretation Comments VLDL (test code = VLDL) 19 [facility] [id number] 13:12:00 Test Item Value Reference Range Interpretation Comments Trig (test code = Trig) 94 [facility] [id number] 13:12:00 Test Item Value Reference Range Interpretation Comments LDL (Calculated) (test code = LDL 49 (Calculated)) [facility] CenterMzoscraRFNJJH2566-27-85 13:12:00 Test Item Value Reference Range Interpretation Comments CHD Risk (test code = CHD Risk) 1.91 4.00-7.30 [facility] [id number] 13:12:00 Test Item Value Reference Range Interpretation Comments Hgb A1C (test code = Hgb A1C) 6.9 [facility] AND [id number] 13:12:00 Test Item Value Reference Range Interpretation Comments UA Color (test code = UA Color) Ltyellow [facility] AND [id number] 13:12:00 Test Item Value Reference Range Interpretation Comments UA Urobilinogen (test code = UA <=1.0 mg/dL 0.1-1.0 Urobilinogen) [facility] AND [id number] 13:12:00 Test Item Value Reference Range Interpretation Comments UA Ketones (test code = UA Negative mg/dL Ketones) [facility] AND [id number] 13:12:00 Test Item Value Reference Range Interpretation Comments UA Glucose (test code = UA Negative mg/dL Glucose) [facility] [id number] 13:12:00 Test Item Value Reference Range Interpretation Comments UA Protein (test code = UA Protein) 100 mg/dL [facility] AND [id number] 13:12:00 Test Item Value Reference Range Interpretation Comments UA Leuk Est (test Negative (09/28/15 8:12 code = UA Leuk Est) AM) [facility] [id number] 13:12:00 Test Item Value Reference Range Interpretation Comments UA Nitrite (test code Negative (09/28/15 8:12 = UA Nitrite) AM) [facility] [id number] 13:12:00 Test Item Value Reference Range Interpretation Comments UA Bili (test code = Negative *NA*(09/28/15 UA Bili) 8:12 AM) [facility] AND [id number] 13:12:00 Test Item Value Reference Range Interpretation Comments UA Sq Epi (test code = UA Sq Epi) None Seen [facility] [id number] 13:12:00 Test Item Value Reference Range Interpretation Comments UA Blood (test code = Negative (09/28/15 8:12 UA Blood) AM) [facility] [id number] 13:12:00 Test Item Value Reference Range Interpretation Comments UA pH (test code = UA pH) 6.0 5.0-8.0 [facility] [id number] 13:12:00 Test Item Value Reference Range Interpretation Comments UA Spec Grav (test code = UA Spec Grav) 1.010 [facility] [id number] 13:12:00 Test Item Value Reference Range Interpretation Comments UA Turbidity (test code = Clear (09/28/15 8:12 UA Turbidity) AM) [facility]2016-07-27 13:12:00 Test Item Value Reference Range Interpretation Comments U Alb/Crea (test code = U Alb/Crea) 712.8 [facility]2016-07-27 13:12:00 Test Item Value Reference Range Interpretation Comments U Microalb (test code = U Microalb) 345.0 [facility]2016-07-27 13:12:00 Test Item Value Reference Range Interpretation Comments U Creatinine (test code = U Creatinine) 48.40 [facility]
[2022-07-24 20:26] LABS: Absolute Lymphocytes (CBC) 1.1 K/uL (0.7-4.9); Hematocrit 33.8 % (39.6-49.0); Lymphocytes % 21.5 % (15.3-44.8); MCV 93.7 fL (80-100); MPV 7.6 fL (7.6-11.3); RBC Red Blood Cell Count 3.61 M/uL (4.33-5.43)
[2022-07-24 20:41] LABS: Protime INR 0.89
--- NOTE | 2022-07-24 20:42 | RAD REPORT ---
EXAM DESCRIPTION: CT - Head C Spine Cap Wo Con - 07/24/2022 7:45 pm CLINICAL HISTORY: TRAUMA COMPARISON: Lung Cancer Screening CT W/O dated 05/28/2022; Chest Single View dated 07/03/2022; Chest Si ngle View dated 06/10/2022; Chest Single View dated 06/27/2022 TECHNIQUE: Head and cervical spine CT images were obtained without IV contrast. Chest, abdomen, and pelvis CT images were obtained also without IV contrast. Multiplanar reformats were generated and rev iewed. All CT scans are performed using dose optimization technique as appropriate and may include automated exposure control or mA/KV adjustment according to patient size. FINDINGS: CT HEAD: No intracranial hemorrhage, mass effect, or edema. No evidence of acute territorial infarct. No midli ne shift or abnormal fluid collection. The ventricles are normal in caliber and configuration for age . Basal cisterns are patent. Mastoid aircells and paranasal sinuses are clear. No acute skull fractur e. CT CERVICAL SPINE: No acute cervical spine fracture or subluxation. Vertebral body heights are well maintained. Facet marcelo ints are normal in alignment. Multilevel degenerative changes, with anterior approach fusion spanning C4 -C7. 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 No hyperattenuating canal hematoma. Prevertebral and para spinous soft tissues are unremarkable. CT CHEST: No pneumothorax, pulmonary contusion or pleural fluid collection. Stable ovoid left apical pleural-ba sed 1.7 centimeter solid nodule. Paraseptal bullae are stable. New triangular opacity centered on the right middle lobe, measuring 5.2 centimeter, could reflect rounded atelectasis. Volume loss seen in the left lower lobe with platelike atelectatic changes and ground-glass opacities. No mediastinal hem atoma and the aorta and pulmonary arteries are unremarkable. No chest wall mass or abnormal axillary finding. No displaced rib fracture or other significant bony finding. CT ABDOMEN/ PELVIS: No evidence of traumatic injury to solid abdominal viscera. Moderate gallbladder distention with smal l gallstones. Exophytic cyst from the anterior right kidney. . No bowel injury or significant finding . No free air, free fluid or abnormal fat stranding. No urinary bladder abnormality. No significant bony finding. IMPRESSION: No acute traumatic findings. New triangular opacity centered on the right middle lobe, could reflect atelectasis or sequelae of as piration. Radiographic appearance balance partial interval improvement since the 06/27/[address] or radiograph follow-up imaging in 1-3 months is recommended to ensure resolution. Atelectatic and ground-glass opacities in the left lower lung, may relate to sequelae of hypoventilat ion.
[2022-07-24 20:48] LABS: Bilirubin Total 0.4 mg/dL (0.2-1.0); Potassium 3.5 mEq/L (3.5-5.1); Protein, Total 7.2 g/dL (6.4-8.2); Troponin High Sensitivity 38.4 pg/mL (<58.9)
[2022-07-24] MEDS ORDERED: ACETAMINOPHEN 500 MG TAB ONE (21:10)
[2022-07-24] MEDS ORDERED: ONDANSETRON 4 MG/2 ML VIAL ONE (21:11)
[2022-07-24] MEDS ORDERED: NA CHLORIDE 0.9% 250 ML ONE (21:11)
[2022-07-24] MEDS ORDERED: NA CHLORIDE 0.9% 100 ML ONE (21:11)
[2022-07-24] MEDS ORDERED: ACYCLOVIR 400 MG TABLET ONE (21:11)
[2022-07-24] MEDS ORDERED: VANCOMYCIN 1 GM/VIAL ONE (21:11)
[2022-07-24] MEDS ORDERED: IBUPROFEN 400 MG TAB ONE (21:11)
[2022-07-24] MEDS ORDERED: MORPHINE 4 MG/ML SYR ONE (21:11)
[2022-07-24] MEDS ORDERED: NA CHLORIDE 0.9% 1,000 ML ONE (21:12)
[2022-07-24] MEDS ORDERED: PIPERACIL/TAZO 3.375 GM VIAL IV ONE (21:12)
[2022-07-24] MEDS ORDERED: TETANUS & DIPHTHERIA TOX,ADULT 0.5 ML VIAL ONE (21:12)
[2022-07-24 22:26] LABS: Specific Gravity 1.011 (1.005-1.030); Urine Bacteria <20 /HPF (<20); Urine Bilirubin NEGATIVE (Negative); Urine Blood 1+ (Negative); Urine Clarity Clear (Clear); Urine Color Light-Yellow (Yellow); Urine Glucose TRACE (Negative); Urine Mucus Slight /HPF (None Seen); Urine Protein 3+ (Negative); Urine RBC <5 /HPF (None Seen); Urine Urobilinogen Normal (Normal); Urine pH 6.5 (5.0-7.0)
--- NOTE | 2022-07-24 23:36 | ER ---
Nurse's Notes [facility] Name: Joe Singh Age: 72 yrs Sex: Male : 1950 Arrival Date: 07/24/2022 Time: 19:17 Bed 2 Private MD: Diagnosis: Herpesviral vesicular dermatitis;Acute chest wall shingles, acute on chronic renal failure, generalized weakness, fall at home, atelectases bilateral lungs Presentation: 07/24 19:18 Chief complaint: EMS states: Pt reports being out of his oxygen for the past 2 days. jb4 Initial oxygen was 78% on RA. Pt reports falling, he is compaining of left rib pain and has a small cut to his nose. The is also a rash on his left ribs. Coronavirus screen: At this time, the client does not indicate any symptoms associated with coronavirus-19. Ebola Screen: No symptoms or risks identified at this time. Initial Sepsis Screen: Does the patient meet any 2 criteria? No. Patient's initial sepsis screen is negative. Does the patient have a suspected source of infection? No. Patient's initial sepsis screen is negative. Risk Assessment: Do you want to hurt yourself or someone else? Patient reports no desire to harm self or others. Onset of symptoms was July 24, 2022. Transition of care: patient was not received from another setting of care. 19:18 Method Of Arrival: Ambulatory jb4 19:18 Acuity: JENNY 3 jb4 Historical: - Allergies: 19:27 No Known Allergies; jb4 - Home Meds: 19:27 O2 2L NC prn [Active]; Magnesium Oxide Oral [Active]; alprazolam 0.5 mg Oral tablet jb4 [Active]; gabapentin 300 mg oral capsule 3 times per day [Active]; tylenol with codeine [Active]; clonidine HCl 0.2 mg Oral tablet three times a day [Active]; furosemide 40 mg Oral tablet daily [Active]; albuterol sulfate 2.5 mg /3 mL (0.083 %) Inhl Solution for Nebulization every 6 hours [Active]; - PMHx: 19:27 Atrial fibrillation; Chronic obstructive lung disease; Congestive heart failure; jb4 neuropathy; - Immunization history:: Adult Immunizations up to date. - Social history:: Smoking status: Patient denies any tobacco usage or history of. - Family history:: not pertinent. Screenin:47 Abuse screen: Denies threats or abuse. Denies injuries from another. kd3 21:42 [facility] ED Fall Risk Assessment (Adult) History of falling in the last 3 months, kd3 including since admission Yes- single mechanical fall (1 pt) Confusion or Disorientation Yes (5 pts) Intoxicated or Sedated No (0 pts) Impaired Gait Yes (1 pt) Mobility Assist Device Used No (0 pt) Altered Elimination No (0 pt) Score/Fall Risk Level 3 or more points = High Risk Maintained a safe environment, Assessed \T\ reinforced patient's understanding of fall precautions, Provided non-skid footwear, Hourly rounding (assess needs \T\ fall precautionary measures) done. Nutritional screening: No deficits noted. Tuberculosis screening: No symptoms or risk factors identified. Assessment: 20:47 General: Appears ill, Behavior is calm, cooperative. Pain: Complains of pain in kd3 abdomen, left arm and back. Neuro: Level of Consciousness is obeys commands, lethargic, Oriented to person, place. Respiratory: Airway is patent Trachea midline Respiratory effort is even, unlabored, Respiratory pattern is regular, symmetrical. Vital Signs: 19:18 BP 171 / 88; Pulse 66; Resp 18; Temp 99.1; Pulse Ox 89% on R/A; Weight 84 kg (M); jb4 Height 6 ft. 0 in. (R); 22:18 BP 149 / 75; Pulse 58; Resp 13; Pulse Ox 100% on 2.5 lpm NC; kd3 23:23 BP 130 / 73; Pulse 57; Resp 19; Pulse Ox 98% on 2.5 lpm NC; kd3 05 00:27 BP 147 / 72; Pulse 53; Resp 17; Pulse Ox 98% on 2.5 lpm NC; kd3 07/24 19:18 Body Mass Index 25.12 (84.00 kg, 182.88 cm) jb4 07/24 19:18 Sats increased to 97% on 2L NC jb4 ED Course: 19:18 Patient arrived in ED. jb4 19:21 Whitney Benjamin MD is Attending Physician. sp3 19:27 Triage completed. jb4 19:27 Arm band placed on right wrist. jb4 19:47 CT Traumagram (Head C Spine CAP wo con) In Process Unspecified. EDMS 20:14 Attending Physician role handed off by Whitney Benjamin MD sp4 20:14 Clyde Grant MD is Attending Physician. sp4 20:44 Sadia Green, YOLANDA is Primary Nurse. kd3 20:44 Lactate w/ 2H reflex if indic. Sent. kd3 20:44 CMP Sent. kd3 20:44 Blood Culture Adult (2) Sent. kd3 20:46 Inserted saline lock: 20 gauge in right antecubital area, using aseptic technique. kd3 Blood collected. 21:42 No provider procedures requiring assistance completed. kd3 21:43 Patient has correct armband on for positive identification. Side rails up X2. kd3 22:18 Inserted saline lock: 18 gauge in left antecubital area, using aseptic technique. IV kd3 discontinued, intact, bleeding controlled, No redness/swelling at site. Pressure dressing applied. 23:34 Leonel Wilkerson MD is Hospitalizing Provider. sp4 Administered Medications: 21:31 Drug: Piperacillin-Tazobactam IVPB 3.375 grams Route: IVPB; Infused Over: 60 mins; kd3 Site: right antecubital; 07/25 01:15 Follow up: IV Status: Completed infusion; IV Intake: 100ml 3 07/24 21:31 Drug: morphine IVP or IV 4 mg Route: IVP; Infused Over: 4 mins; Site: right antecubital;kd3 07/25 01:14 Follow up: Response: No adverse reaction; Pain is decreased kd3 07/24 21:31 Drug: Acyclovir PO 800 mg Route: PO; 3 07/25 01:14 Follow up: Response: No adverse reaction 3 07/24 21:31 Drug: Ondansetron IVP 4 mg Route: IVP; Site: right antecubital; 07/25 00:53 Follow up: Response: No adverse reaction; Nausea is decreased 07/24 21:31 Drug: Acetaminophen PO 1000 mg Route: PO; 07/25 00:53 Follow up: Response: No adverse reaction 3 07/24 21:31 Drug: Ibuprofen PO 800 mg Route: PO; 3 07/25 00:52 Follow up: Response: No adverse reaction 3 07/24 21:32 Drug: NS 0.9% IV 1000 ml Route: IV; Rate: 125 ml/hr; Site: right antecubital; kd3 07/25 01:15 Follow up: IV Status: Infusion continued kd3 07/24 21:40 Drug: Tetanus-Diphtheria Toxoid IM Adult 0.5 ml {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 kd3 Exp: 01/21/2023. Lot #: [id number]. } Route: IM; Site: right deltoid; 07/25 00:52 Follow up: Response: No adverse reaction kd3 07/24 22:18 Drug: vancoMYCIN IVPB 1 grams Route: IVPB; Infused Over: 2 hrs; Site: left antecubital; kd3 07/25 01:15 Follow up: IV Status: Completed infusion; IV Intake: 250ml kd3 07/24 23:38 Drug: Solu-CORTEF IVP 100 mg Route: IVP; Site: left antecubital; kd3 07/25 00:51 Follow up: Response: No adverse reaction kd3 00:32 Drug: morphine IVP or IV 2 mg Route: IVP; Infused Over: 4 mins; Site: left antecubital; kd3 00:51 Follow up: Response: No adverse reaction; Pain is decreased kd3 Medication: 07/24 21:41 Vaccine Information Statement (VIS) provided today. Questions and/or concerns kd3 addressed. VIS edition date: October 07, 2020. Intake: 07/25 01:15 IV: 100ml; Total: 100ml. kd3 01:15 IV: 250ml; Total: 350ml. kd3 Output: 01:14 Urine: 350ml (Still); Total: 350ml. kd3 Outcome: 07/24 23:35 Decision to Hospitalize by Provider. sp4 07/25 00:51 Admitted to Med/surg kd3 Condition: stable Discharge instructions given to patient, Instructed on discharge instructions, follow up and referral plans. Demonstrated understanding of instructions, follow-up care. 00:51 Admitted to Med/surg kd3 00:51 Condition: stable 00:51 Discharge instructions given to patient, Instructed on the need for admit, Demonstrated understanding of instructions, follow-up care. 01:15 Patient left the ED. kd3 Signatures: Dispatcher [facility] EDJoe Avelar RN RN jb4 Whitney Benjamin MD MD sp3 Sadia Green, RN RN kd3 Clyde Grant MD MD sp4
--- NOTE | 2022-07-24 23:37 | EDPHYS ---
Physician Documentation [facility] Name: Joe Singh Age: 72 yrs Sex: Male : 1950 Arrival Date: 07/24/2022 Time: 19:17 Bed 2 Private MD: ED Physician Clyde Grant HPI: 07/24 19:35 This 72 yrs old Male presents to ER via Ambulatory with complaints of Altered mental sp3 status, left-sided rib pain from a fall, head injury. 19:35 72-year-old male with history of atrial fibrillation, COPD, congestive heart failure sp3 presents via EMS after he was found down in his home secondary to a fall with pain on his left side and forehead. Patient's son had called police for a welfare check and police activated EMS after finding patient had fallen. Unknown baseline mental status. His son is not here. Patient complains of mild headache, left-sided chest and abdominal pain and is alert to person and place only. He is not alert to time and states it is 1950. History and physical and review of systems limited secondary to his altered mental status. Given this however he denies any right-sided pain, vomiting, diarrhea, syncope, or any other symptoms. He endorses subjective fever but cannot tell me anything further.. 20:21 Patient care was assumed from Dr. Benjamin, patient states he [facility] and fell down and was on the floor since this morning, patient has left-sided truncal rash consistent with shingles that he states started this morning. Patient denies generalized weakness or localized weakness consistent with stroke. Patient reports striking his head on the floor.. Historical: - Allergies: 19:27 No Known Allergies; jb4 - Home Meds: 19:27 O2 2L NC prn [Active]; Magnesium Oxide Oral [Active]; alprazolam 0.5 mg Oral tablet jb4 [Active]; gabapentin 300 mg oral capsule 3 times per day [Active]; tylenol with codeine [Active]; clonidine HCl 0.2 mg Oral tablet three times a day [Active]; furosemide 40 mg Oral tablet daily [Active]; albuterol sulfate 2.5 mg /3 mL (0.083 %) Inhl Solution for Nebulization every 6 hours [Active]; - PMHx: 19:27 Atrial fibrillation; Chronic obstructive lung disease; Congestive heart failure; jb4 neuropathy; - Immunization history:: Adult Immunizations up to date. - Social history:: Smoking status: Patient denies any tobacco usage or history of. - Family history:: not pertinent. ROS: 23:15 Constitutional: Negative for fever, chills, and weight loss, positive for generalized sp4 weakness, positive for fall at home secondary to slipping Eyes: Negative for injury, pain, redness, and discharge, ENT: Negative for injury, pain, and discharge, Neck: Negative for injury, pain, and swelling, Cardiovascular: Negative for chest pain, palpitations, and edema, Respiratory: Negative for shortness of breath, cough, wheezing, and pleuritic chest pain, Abdomen/GI: Negative for abdominal pain, nausea, vomiting, diarrhea, and constipation. 23:17 Cardiovascular: Negative for chest pain, palpitations, and edema, positive for left sp4 chest wall pain and a chest wall rash associated with shingles Back: Negative for injury positive posterior back pain associated with shingles rash : Negative for injury, bleeding, discharge, and swelling, MS/Extremity: Negative for injury and deformity, Skin: Negative for injury, rash, and discoloration, Neuro: Negative for headache, weakness, numbness, tingling, and seizure, Psych: Negative for depression, anxiety, Allergy/Immunology: Negative for hives, rash, and allergies Endocrine: Negative for neck swelling, polydipsia, polyuria, polyphagia, and weight changes Hematologic/Lymphatic: Negative for swollen nodes, abnormal bleeding, and unusual bruising Exam: 19:37 Constitutional: This is a well developed, well nourished patient who is awake, alert, sp3 and in no acute distress. Eyes: Pupils equal round and reactive to light, extra-ocular motions intact. Lids and lashes normal. Conjunctiva and sclera are non-icteric and not injected. Cornea within normal limits. Periorbital areas with no swelling, redness, or edema. ENT: Nares patent. No nasal discharge, no septal abnormalities noted. External auditory canals are clear. Oropharynx with no redness, swelling, or masses, exudates, or evidence of obstruction, uvula midline. Mucous membranes moist. Neck: Trachea midline, no thyromegaly or masses palpated, and no cervical lymphadenopathy. Supple, full range of motion without nuchal rigidity, or vertebral point tenderness. No Meningismus. Cardiovascular: Regular rate and rhythm with a normal S1 and S2. No gallops, murmurs, or rubs. Normal PMI, no JVD. No pulse deficits. Respiratory: Lungs have equal breath sounds bilaterally, clear to auscultation and percussion. No rales, rhonchi or wheezes noted. No increased work of breathing, no retractions or nasal flaring. 19:37 Head/face: Superficial laceration on the forehead along with some abrasions.. 19:37 Chest/axilla: Chest is tender to palpation without any crepitus or subcu air noted. Patient has a rash consistent with possible zoster extending from his back on the left side anteriorly on thoracic dermatome.. 19:37 Abdomen/GI: Abdomen is mildly tender to palpation the left side without rebound or guarding or peritoneal signs. Distal pulses are normal in all 4 extremities.. 19:47 ECG was reviewed by the Attending Physician. EKG demonstrates normal sinus rhythm at 64 sp3 bpm with normal intervals, normal QRS, normal axis, inverted T waves in the lateral leads. No signs of acute ischemia. 23:17 Head/Face: Normocephalic, traumatic abrasion to left nasal bridge Chest/axilla: sp4 Normal chest wall appearance and motion. Nontender with no deformity. Left-sided chest wall blistering rash consistent with shingles in dermatomal distribution just below the left breast Abdomen/GI: Soft, non-tender, with normal bowel sounds. No distension or tympany. No guarding or rebound. No evidence of tenderness throughout. Back: No spinal tenderness. No costovertebral tenderness. Male : Normal genitalia with no discharge or lesions. Skin: Warm, dry with normal turgor. Left-sided chest wall rash consistent with shingles MS/ Extremity: Pulses equal, no cyanosis. Neurovascular intact. Full, normal range of motion. Neuro: Awake and alert, GCS 15, oriented to person, place, time, and situation. Cranial nerves II-XII grossly intact. Motor strength 5/5 in all extremities. Sensory grossly intact. Psych: Awake, alert, with orientation to person, place and time. Behavior, mood, and affect are within normal limits Vital Signs: 19:18 BP 171 / 88; Pulse 66; Resp 18; Temp 99.1; Pulse Ox 89% on R/A; Weight 84 kg (M); jb4 Height 6 ft. 0 in. (R); 22:18 BP 149 / 75; Pulse 58; Resp 13; Pulse Ox 100% on 2.5 lpm NC; kd3 23:23 BP 130 / 73; Pulse 57; Resp 19; Pulse Ox 98% on 2.5 lpm NC; kd3 07/25 00:27 BP 147 / 72; Pulse 53; Resp 17; Pulse Ox 98% on 2.5 lpm NC; kd3 07/24 19:18 Body Mass Index 25.12 (84.00 kg, 182.88 cm) jb4 07/24 19:18 Sats increased to 97% on 2L NC jb4 MDM: 19:29 Patient medically screened. sp3 19:38 Data reviewed: vital signs, nurses notes, EMS record, old medical records, lab test sp3 result(s), EKG, radiologic studies. ED course: 72-year-old male with extensive past medical history now presents with altered mental status and subjective fever coupled with unwitnessed fall for which she was found by the police. Work-up will include a sepsis work-up as well as a traumatic work-up. Patient has laboratory values, urine analysis pending along with a CT traumagram of the head, C-spine, chest abdomen and pelvis. Patient's vital signs are within normal limits and he is not in any acute distress. EKG is pending. Antibiotics have not been started given the fact that his hemodynamic status is normal. If source is found on work-up, we will start at that time. Blood cultures have been drawn and are pending. This patient will be signed out to nighttime physician Dr. Talley for final disposition.. 23:17 Differential Diagnosis altered mental status, sepsis, flu. 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 History of hypertension, COPD, chronic diastolic congestive heart failure. Oil Burner Mechanic is Dr. Ledesma , patient's daily medications include albuterol, arformoterol, baclofen, benzonatate, budesonide, bumetanide, clobetasol, clonidine, Tylenol with codeine, desoximetasone, ergocalciferol, fluticasone, glipizide, ipratropium, levothyroxine 150 mcg daily, magnesium, nifedipine, pravastatin, tamsulosin, trazodone, hydroxyzine, prednisolone 5 mg p.o. daily. Will administer hydrocortisone at this time secondary to multiple steroids and possible adrenal insufficiency.. 23:22 Consideration of Admission/Observation Patient was admitted/placed on observation. sp4 Escalation of care including admission/observation considered. Management of patient was discussed with the following: Hospitalist: Admitting primary MD.. ED course: Patient's labs today revealed acute on chronic renal failure with creatinine 3.91. Hypoalbuminemia albumin 3.0. Proteinuria 3+ protein in the urine consistent with chronic renal failure. Elevated procalcitonin 1.04. Normal troponin. Hay scan was done on the patient secondary to fall it has revealed no acute traumatic findings,. CT head revealed no intracranial hemorrhage. CT cervical spine revealed moderate central canal stenosis at C6-7 level, no cervical spine fracture or subluxation . CT chest has revealed no pneumothorax, no pulmonary contusion or pulmonary fluid collection. Left apical pleural-based solid nodule which is stable. Bullous emphysema. New triangular opacity in the right middle lobe measuring 5 cm could represent atelectasis. No rib fractures or other significant bony findings. CT abdomen and pelvis revealed no evidence of traumatic injury to solid abdominal viscera. Moderate gallbladder distention with small gallstones. Exophytic cyst anterior pole right kidney. No bowel injury or significant finding. Conclusion no acute traumatic findings. New triangular opacity right middle lobe could reflect atelectasis or sequela of aspiration. Radiographic appearance partial interval improvement since 06/27/2022. PATIENT SAFETY SITTER radiograph follow-up is recommended to ensure resolution. Atelectatic groundglass opacities left lower lung may relate to sequela of hypoventilation.. 07/24 19:25 Order name: Blood Culture Adult (2) [facility] 07/24 19:25 Order name: CBC with Diff; Complete Time: :26 [facility] 07/24 19:25 Order name: CMP [facility] 07/24 19:25 Order name: Lactate w/ 2H reflex if indic.; Complete Time: :26 [facility] 07/24 19:25 Order name: Protime (+inr); Complete Time: 22:26 3 07/24 19:25 Order name: Ptt, Activated; Complete Time: 22:26 3 07/24 19:25 Order name: Urinalysis w/ reflexes; Complete Time: 22:33 3 07/24 19:25 Order name: Type And Screen; Complete Time: 22:26 3 07/24 19:25 Order name: Troponin High Sensitivity [facility] 07/24 20:15 Order name: Procalcitonin; Complete Time: 22:26 4 07/24 23:28 Order name: T4 Free [facility] 07/24 23:28 Order name: Thyroid Stimulating Hormone [facility] 07/24 19:25 Order name: CT Traumagram (Head C Spine CAP wo con); Complete Time: 22:26 [facility] 07/24 19:25 Order name: EKG; Complete Time: 19:26 [facility] 07/24 19:25 Order name: Accucheck; Complete Time: 21:32 [facility] 07/24 19:25 Order name: Cardiac monitoring; Complete Time: 20:44 [facility] 07/24 19:25 Order name: EKG - Nurse/Tech; Complete Time: 21:32 [facility] 07/24 19:25 Order name: IV Saline Lock - Large Bore; Complete Time: 20:44 [facility] 07/24 19:25 Order name: Labs collected and sent; Complete Time: 20:44 [facility] 07/24 19:25 Order name: O2 Per Protocol; Complete Time: 20:44 [facility] 07/24 19:25 Order name: O2 Sat Monitoring; Complete Time: 20:44 [facility] 07/24 19:25 Order name: Vital Signs; Complete Time: 20:44 [facility] 07/24 19:25 Order name: Still; Complete Time: 22:19 3 Administered Medications: 21:31 Drug: Piperacillin-Tazobactam IVPB 3.375 grams Route: IVPB; Infused Over: 60 mins; 3 Site: right antecubital; 07/25 01:15 Follow up: IV Status: Completed infusion; IV Intake: 100ml [facility] 07/24 21:31 Drug: morphine IVP or IV 4 mg Route: IVP; Infused Over: 4 mins; Site: right antecubital;3 07/25 01:14 Follow up: Response: No adverse reaction; Pain is decreased [facility] 07/24 21:31 Drug: Acyclovir PO 800 mg Route: PO; 07/25 01:14 Follow up: Response: No adverse reaction 07/24 21:31 Drug: Ondansetron IVP 4 mg Route: IVP; Site: right antecubital; 07/25 00:53 Follow up: Response: No adverse reaction; Nausea is decreased 07/24 21:31 Drug: Acetaminophen PO 1000 mg Route: PO; 07/25 00:53 Follow up: Response: No adverse reaction 07/24 21:31 Drug: Ibuprofen PO 800 mg Route: PO; 07/25 00:52 Follow up: Response: No adverse reaction 07/24 21:32 Drug: NS 0.9% IV 1000 ml Route: IV; Rate: 125 ml/hr; Site: right antecubital; 07/25 01:15 Follow up: IV Status: Infusion continued 07/24 21:40 Drug: Tetanus-Diphtheria Toxoid IM Adult 0.5 ml {Car Loader: [employer] ([email or web address]). Exp: 01/21/2023. Lot #: [id number]. } Route: IM; Site: right deltoid; 07/25 00:52 Follow up: Response: No adverse reaction 07/24 22:18 Drug: vancoMYCIN IVPB 1 grams Route: IVPB; Infused Over: 2 hrs; Site: left antecubital; 07/25 01:15 Follow up: IV Status: Completed infusion; IV Intake: 250ml 07/24 23:38 Drug: Solu-CORTEF IVP 100 mg Route: IVP; Site: left antecubital; 07/25 00:51 Follow up: Response: No adverse reaction 00:32 Drug: morphine IVP or IV 2 mg Route: IVP; Infused Over: 4 mins; Site: left antecubital; 00:51 Follow up: Response: No adverse reaction; Pain is decreased 3 Disposition Summary: 07/24/22 23:35 Hospitalization Ordered Hospitalization Status: Inpatient Admission sp4 Provider: Leonel Wilkerson Location: Telemetry/[facility] (Inpatient) sp4 Condition: Stable sp4 Problem: new sp4 Symptoms: have improved sp4 Bed/Room Type: Standard sp4 Room Assignment: 224(07/25/22 00:19) mw Diagnosis - Herpesviral vesicular dermatitis sp4 - Acute chest wall shingles, acute on chronic renal failure, generalized weakness, sp4 fall at home, atelectases bilateral lungs Forms: - Medication Reconciliation Form sp4 - SBAR form sp4 Signatures: Dispatcher [employer] EDMS Jesusita Francois RN RN mw Chan Echevarria, HI RANGER OPERATOR-C HI RANGER OPERATOR-Cla1 Joe Quinteros RN RN jb4 Whitney Benjamin MD MD sp3 Sadia Green RN RN kd3 Clyde Grant MD MD sp4 Corrections: (The following items were deleted from the chart) 07/24 23:28 23:22 THYROID STIMULAT HORMONE+C.LAB.BRZ ordered. EDMS EDMS 23:22 T4 FREE+C.LAB.BRZ ordered. EDMS EDMS 07/25 00:19 07/24 23:35 sp4 mw
[2022-07-24] MEDS ORDERED: HYDROCORTISONE SUC 100 MG INJ ONE (23:42)
[2022-07-25 00:14] LABS: Thyroid Stimulating Hormone 12.8 uIU/mL (0.358-3.740)
[2022-07-25] MEDS ORDERED: MORPHINE 2 MG/ML SYR ONE (00:37)
[2022-07-25] MEDS ORDERED: HYDRALAZINE HCL 20 MG/ML VIAL IV PRN (01:06)
[2022-07-25] MEDS: NA CHLORIDE 0.9% 1,000 ML IV SCH ×3 (01:06→21:23)
[2022-07-25] MEDS ORDERED: ALBUTEROL 2.5 MG/3 ML NEB SOL NEB PRN (01:06)
[2022-07-25 02:27] VITALS: BMI 25.3
[2022-07-25 04:40] LABS: Potassium 3.7 mEq/L (3.5-5.1)
--- NOTE | 2022-07-25 04:54 | EKG ---
Test Date: 2022-07-24 Test Time: 19:22:46 Soft Shoe Dancer: MEASUREMENT RESULTS: Intervals: Rate: 64 UT: 188 QRSD: 96 QT: 486 QTc: 501 [place]: P: 83 UT: 188 QRS: 113 T: 168 INTERPRETIVE STATEMENTS: Normal sinus rhythm ST & T wave abnormality, consider inferior ischemia ST & T wave abnormality, consider anterolateral ischemia Prolonged QT Abnormal ECG Compared to ECG 06/29/2022 18:14:16 Prolonged QT interval now present Right-axis deviation no longer present Myocardial infarct finding no longer present ST (T wave) deviation still present Possible ischemia still present Electronically Signed On 07-25-22 04:53:37 CDT by Fred Bhatia
[2022-07-25] MEDS: HYDROCODONE/APAP 10/325 TAB PO PRN ×4 (05:35→21:23)
[2022-07-25] MEDS ORDERED: BACLOFEN 10 MG TAB PO PRN (08:05)
[2022-07-25] MEDS ORDERED: LEVALBUTEROL 0.63 MG/3 ML NEB NEB PRN ×2 (08:06→14:00)
--- NOTE | 2022-07-25 08:14 | P.HP ---
Certification for Inpatient Patient admitted to: Inpatient With expected LOS: >2 Midnights Patient will require the following post-hospital care: Home Health Services Practitioner: I am a practitioner with admitting privileges, knowledge of patient current condition, hospital course, and medical plan of care. Services: Services provided to patient in accordance with Admission requirements found in Title 42 Section 412.3 of the Code of Federal Regulations Patient History Date of Service: 07/25/22 Primary Care Provider: Rock Reason for admission: concussion History of Present Illness: Patient is a bit confused. He is a patient of mine with Copd and ckd stage 3b. He was found on the floor yesterday. brought to the er. Was found to have shingles on his left chest and abdomen. His Kidney function has worsened. His creatine on his last admission earlier this month was 2.5 Which is good for him. He is seen by Dr. Duke. He does not difficulty breathing this time. Main complaints are confusion, weakness and pain on the left chest wall. This is were the shingles outbreak is. Allergies No Known Allergies Allergy (Verified 07/25/22 01:57) Home Medications: Albuterol Sulfate [Proair Respiclick] 2 inh IH Q6HP PRN 06/27/22 Arformoterol Tartrate [Brovana] 15 mcg NEB BIDRESP 06/27/22 Baclofen 10 mg PO TIDP PRN 06/27/22 Benzonatate [Tessalon Perle] 100 mg PO TIDP PRN 06/27/22 Budesonide [Pulmicort] 1 puff IH BID 06/27/22 Bumetanide [Bumex] 1 mg PO BID 06/27/22 Clobetasol Propionate [Clobex] 59 ml TP BIDP PRN 06/27/22 Clonidine HCl [Catapres*] 0.2 mg PO TIDP PRN 06/27/22 Codeine/APAP [Tylenol W/Codeine #3 tab] 1 tab PO Q6HP PRN 06/27/22 Desoximetasone 15 gm TP BID 06/27/22 Ergocalciferol (Vitamin D2) [Drisdol] 50,000 unit PO SEECOM 06/27/22 Fluticasone Propionate [Flonase Allergy Relief] 2 sprays NS DAILY 06/27/22 Glipizide [Glipizide Xl] 2.5 mg PO BID 06/27/22 Ipratropium Neb [Atrovent Neb] 0.2 mg IH Q4HP PRN 06/27/22 Levothyroxine Sodium [Levothyroxine] 150 mcg PO DAILY 06/27/22 Magnesium Oxide [Mag 0X Tab] 500 mg PO DAILY 06/27/22 NIFEdipine [Nifedipine ER] 30 mg PO DAILY 06/27/22 Pravastatin [Pravachol*] 40 mg PO BEDTIME 06/27/22 Tamsulosin [Flomax] 0.4 mg PO BEDTIME 06/27/22 Trazodone [Desyrel] 50 mg PO BEDTIME 06/27/22 hydrOXYzine HCL [Atarax] 25 mg PO TIDP PRN 06/27/22 prednisoLONE [Prednisolone] 5 mg PO DAILY 06/27/22 Furosemide [Lasix] 40 mg PO DAILY #30 tab 07/05/22 Alprazolam [Xanax] 0.5 mg PO BEDTIME 07/25/22 Gabapentin 300 mg PO TID 07/25/22 Tiotropium Wall [Spiriva] 2.5 mcg IN DAILY 07/25/22 - Past Medical/Surgical History Has patient received pneumonia vaccine in the past: No Diabetic: Yes -: CHF -: Diabetes Type 2 -: CKD -: Afib -: appendectomy -: Neck surgery 2013 -: Left knee surgery - Family History Father -: Heart disease, Liver disease Notes: Alcoholic Mother -: Heart disease, Hypertension, Diabetes Sister -: Heart disease Notes: [place] Brother -: Heart disease Notes: [place], CHF older sister -: Heart disease, Kidney disease - Social History Smoking Status: Current every day smoker Alcohol use: No CD- Drugs: No Caffeine use: Yes Review of Systems 10-point ROS is otherwise unremarkable General: Weakness Integumentary: Rash, Other (pain over the rash ) Physical Examination - Vital Signs Temperature: 97.6 F Blood Pressure: 134/77 Pulse: 61 Respirations: 17 Pulse Ox (%): 96 - Physical Exam General: Alert, In no apparent distress HEENT: Atraumatic, PERRLA, Mucous membr. moist/pink, EOMI, Sclerae nonicteric Neck: Supple, 2+ carotid pulse no bruit, No LAD, Without JVD or thyroid abnormality Respiratory: Clear to auscultation bilaterally, Normal air movement Cardiovascular: Regular rate/rhythm, Normal S1 S2 Gastrointestinal: Normal bowel sounds, No tenderness Musculoskeletal: No tenderness Integumentary: No rashes, Rash(es) (herpatiform rash on the left chest and abdomen ) Neurological: Normal gait, Normal speech, Normal strength at 5/5 x4 extr, Normal tone, Normal affect Lymphatics: No axilla or inguinal lymphadenopathy - Studies Laboratory Data (last 24 hrs) 07/24/22 20:11: PT 9.8, INR 0.89, APTT 30.2 07/24/22 20:11: Sodium 132 L, Potassium 3.5, BUN 41 H, Creatinine 3.91 H, Glucose 100, Total Bilirubin 0.4, AST 23, ALT 18, Alkaline Phosphatase 91 07/24/22 20:11: WBC 5.00, Hgb 11.5 L, Hct 33.8 L, Plt Count 198 Assessment and Plan - Problems (Diagnosis) (1) CKD stage 4 secondary to hypertension Current Visit: No Status: Chronic Plan: consult to Dr. Fang. Will hold nsaids, bumex and continue fluids. (2) Shingles Current Visit: Yes Status: Acute Plan: continue the acyclovir and pain management. Unfortunately need to avoid NSAIDs. May consider some steroids for the patient . Qualifiers: Herpes zoster complications: without complications Qualified Code(s): B02.9 - Zoster without complications (3) COPD (chronic obstructive pulmonary disease) Current Visit: No Status: Acute Plan: Patient is stable. Will continue levalbuterol. Can start his home inhalers if avalible. Qualifiers: Qualified Code(s): J41.0 - Simple chronic bronchitis (4) Chronic diastolic CHF (congestive heart failure) Current Visit: No Status: Chronic Plan: stable (5) HTN (hypertension) Current Visit: No Status: Chronic Plan: restart home medications. Qualifiers: Hypertension type: primary hypertension Discharge Plan: Home Plan to discharge in: Greater than 2 days - Advance Directives Does patient have a Living Will: No Does patient have a Durable POA for Healthcare: No - Code Status/Comfort Care Code Status Assessed: Yes Code Status: Full Code Critical Care: No Time Spent Managing Pts Care (In Minutes): 45
[2022-07-25] MEDS: GABAPENTIN 300 MG CAP PO SCH ×3 (09:41→21:19)
[2022-07-25] MEDS: ACYCLOVIR 400 MG TABLET PO SCH ×4 (09:41→21:19)
[2022-07-25] MEDS: MORPHINE 4 MG/ML SYR IV PRN (11:40)
--- NOTE | 2022-07-25 13:17 | CON ---
Date of Consultation: 07/25/2022 Reason For Consultation: Elevated BUN and creatinine, fluid management. 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 Workup of serology and serum protein electrophoresis was done last visit and did not show any light chain disease. He has chronic kidney disease, normal-sized kidney with nephrotic range of proteinuria secondary to hypertension and cardiorenal syndrome and nonsteroidal use. The patient came to the hospital that he has shingles and had severe chest pain. The patient had fall, for that reason reported to the hospital. Upon arrival to the hospital, the patient found to have elevation in BUN and creatinine, creatinine 3.6 with GFR of 16. When he left the hospital late June, creatinine 2.6 with GFR of 25 to 26. The patient denied taking any nonsteroidal. No recent exposure to contrast. The patient was on Lasix 40 mg b.i.d. Past Medical History: Includes; 1. COPD. 2. Congestive heart failure. 3. Chronic kidney disease, stage 4, normal-sized kidney with nephrotic range of proteinuria secondary to hypertension nephrosclerosis, ABHAY secondary to nonsteroidal use. 4. Congestive heart failure, diastolic dysfunction with pulmonary hypertension. 5. Hypertension. Allergies: NO KNOWN DRUGS ALLERGY. Social History: Ex-smoker. Denied alcohol. Denied drugs abuse. Review of Systems: Head and Neck: No red eye. No ear pain. GI: Has abdominal pain. No nausea. No vomiting. Decreased intake. : No polyuria. No dysuria. No hematuria. Deck Mate: Not applicable. Respiratory: Has shortness of breath. Cardiovascular: No chest pain. Endocrine: No polydipsia. Skin: No rash except shingles rash on the left upper abdomen radiating to the back. Physical Examination: Vital Signs: When I saw the patient; blood pressure of 134/77, pulse of 88. Chest: Clear to auscultation. Heart S1, S2. Regular. Systolic murmur. Abdomen: Soft, nontender. Shingles rash on the left upper quadrant and on the flank, tender to touch. Extremities: No edema. Neurological: Alert, oriented x3. No focal. Laboratory Data: Sodium 135, potassium 3.7, bicarb 32, BUN 40, creatinine 3.6, calcium 8.4. WBC 5, H and H 11.5/33.8. Current Medications: The patient on include; 1. Baclofen. 2. Acyclovir. 3. Flomax. 4. Lovenox. 5. Atorvastatin. 6. Gabapentin. 7. Pantoprazole. 8. IV fluid 100 per hour of normal saline. 9. Morphine. Assessment And Plan: 1. Acute kidney injury on advanced chronic kidney disease, mostly secondary to over diuresis/progression of the disease. I am going to go ahead and send for the workup to evaluate. I do not see any crystal induced or any hematuria or any activity in the urine to support any autoimmune disease. We will continue with hydration. I do not see any hyperkalemia or acidosis to support any need for any renal replacement therapy for the time being. We will continue to monitor. Keep holding the Lasix. Close monitoring for the patient. 2. Hypertension, controlled, optimal with the presence of acute kidney injury. Hold Lasix. 3. Congestive heart failure with pulmonary hypertension, currently hypovolemic. We will continue holding the Lasix. 4. Shingles. The patient was started on acyclovir. His dose appropriate for his kidney function. We will follow up, further monitor for kidney function. We will monitor. Thank you, Dr. Wilkerson for allowing us to participate in the care of your patient. time spend exam the patient face to face reviewing data lab and radiology placing order , discussing with patient and nursing staff discussing with hospitalisit >75min EYAL/ECTOR Voice ID: [id number] Report ID: [id number] BETTY
[2022-07-25 15:40] LABS: Urine Bacteria >50 /HPF (<20); Urine Bilirubin NEGATIVE (Negative); Urine Blood 1+ (Negative); Urine Clarity Turbid (Clear); Urine Color Light-Yellow (Yellow); Urine Crystals Unidentified Few /HPF (None Seen); Urine Glucose 1+ (Negative); Urine Mucus Slight /HPF (None Seen); Urine Protein 3+ (Negative); Urine Urobilinogen Normal (Normal); Urine WBC Clump Few /HPF (None Seen)
--- NOTE | 2022-07-25 15:41 | RAD REPORT ---
EXAM DESCRIPTION: US - Renal Ultrasound-Complete - 07/25/2022 2:24 pm CLINICAL HISTORY: Renal disease COMPARISON: June 2022 FINDINGS: The right kidney measures 9 centimeters with increased echotexture The left kidney measures 9 centimeters with an increased echotexture. 1.8 centimeter cyst contains a septation. It is unchanged Hydronephrosis is not seen. Still catheter is present within a collapsed bladder IMPRESSION: Increased renal echotexture consistent with parenchymal disease
[2022-07-25] MEDS: ENOXAPARIN 30 MG/0.3 ML SQ SCH (16:22)
[2022-07-25] MEDS ORDERED: LIDOCAINE JELLY 2%- 5 ML TUBE TOP PRN (17:34)
[2022-07-25] MEDS ORDERED: LIDOCAINE 2%-JELLY **30 ML TUBE TOP PRN (17:53)
[2022-07-25 17:57] LABS: Uric Acid 9.1 mg/dL (3.5-7.2)
[2022-07-25] MEDS ORDERED: HOME MED 1 EA UNK (Pravastatin [Pravachol*] 40 MG/TAB Tab) PO SCH (21:00)
[2022-07-25] MEDS: TRAZODONE 50 MG TABLET PO SCH (21:19)
[2022-07-25] MEDS: DOCUSATE NA 100 MG CAP PO SCH (21:19)
[2022-07-25] MEDS: TAMSULOSIN 0.4 MG SR CAP PO SCH (21:19)
[2022-07-25] MEDS: ATORVASTATIN 10 MG TAB PO SCH (21:19)
[2022-07-25] MEDS: ALPRAZOLAM 0.5 MG TABLET PO SCH (21:19)
[2022-07-26] MEDS: HYDROCODONE/APAP 10/325 TAB PO PRN ×4 (01:00→20:24)
[2022-07-26] MEDS: PANTOPRAZOLE 40MG TABLET PO SCH (05:40)
[2022-07-26 06:01] LABS: Specific Gravity 1.009 (1.005-1.030); Urine Bacteria <20 /HPF (<20); Urine Bilirubin NEGATIVE (Negative); Urine Blood 1+ (Negative); Urine Clarity Clear (Clear); Urine Color Colorless (Yellow); Urine Glucose TRACE (Negative); Urine Mucus Slight /HPF (None Seen); Urine Protein 3+ (Negative); Urine RBC None Seen /HPF (None Seen); Urine Urobilinogen Normal (Normal)
[2022-07-26] MEDS: NA CHLORIDE 0.9% 1,000 ML IV SCH ×2 (06:30→15:29)
[2022-07-26 06:38] LABS: Absolute Lymphocytes (CBC) 1.7 K/uL (0.7-4.9); Hematocrit 29.7 % (39.6-49.0); Lymphocytes % 41.5 % (15.3-44.8); MCV 95.3 fL (80-100); MPV 7.3 fL (7.6-11.3); RBC Red Blood Cell Count 3.11 M/uL (4.33-5.43)
[2022-07-26 06:54] LABS: Potassium 3.5 mEq/L (3.5-5.1)
[2022-07-26 07:14] LABS: Thyroid Stimulating Hormone 20.6 uIU/mL (0.358-3.740)
[2022-07-26] MEDS ORDERED: PNEUMOCOCCAL VACCINE 0.5 ML IMVAC ONE (08:00)
[2022-07-26] MEDS: DOCUSATE NA 100 MG CAP PO SCH ×2 (08:27→20:20)
[2022-07-26] MEDS: ACYCLOVIR 400 MG TABLET PO SCH ×3 (08:28→20:20)
[2022-07-26] MEDS: GABAPENTIN 300 MG CAP PO SCH ×3 (08:28→20:19)
[2022-07-26 13:54] LABS: Barbiturates NEGATIVE (NEGATIVE); Benzodiazepines POSITIVE (NEGATIVE); Cocaine NEGATIVE (NEGATIVE); METHAMPHETAM NEGATIVE (NEGATIVE); Methadone NEGATIVE (NEGATIVE); Opiates POSITIVE (NEGATIVE); Phencyclidine NEGATIVE (NEGATIVE); THC Cannibis POSITIVE (NEGATIVE)
[2022-07-26] MEDS: ENOXAPARIN 30 MG/0.3 ML SQ SCH (17:15)
--- NOTE | 2022-07-26 17:20 | PN ---
Date of Progress Note: 07/26/2022 Subjective: The patient was admitted to the hospital with shingles, herpes zoster. The patient had acute kidney injury secondary to cardiorenal, poor perfusion ATN secondary to dehydration. The patie nt's Lasix has been discontinued, started on gentle hydration. The patient slightly feeling better. Physical Examination: Vital Signs: Blood pressure 126/61, pulse of 88. Chest: Clear to auscultation. Heart: S1, S2. Regular. Abdomen: Soft, nontender. Extremities: No edema. Neurologic: Alert. No focality. Laboratory Data: Hemoglobin 9.8. Sodium 139, potassium 3.5, bicarb 34, BUN 45, creatinine 3.3, GFR of 19 and improving, calcium 7.9. TSH of 20. Urinalysis; +3 protein. Current Medications: The patient on include; 1.Acyclovir 800 t.i.d. 2.Baclofen. 3.Flomax. 4.Lovenox. 5.Atorvastatin. 6.Alprazolam. 7.Gabapentin. 8.Trazodone. 9.Pantoprazole. 10.IV fluid at 100 mL per hour. 11.Docusate. 12.Morphine. Assessment And Plan: 1.Acute kidney injury secondary to poor perfusion ATN, over diuresis. The patient on the recovery, looked to me started to being more euvolemic. The patient is eating better. I am going to go ahead and decrease IV fluid to 50, plan to discontinue tomorrow. 2.Hypertension, controlled, optimal. Continue current medication. Keep holding the Lasix. 3.Congestive heart failure, currently normal volume to the dry side. Keep holding the Lasix and dec rease IV fluid. 4.Shingles. Dose of acyclovir has been adjusted, continue 800 t.i.d. 5.Hypothyroidism. I am going to go ahead and start the patient on the levothyroxine. 6.Pneumonia as by primary. Time spent examining the patient [id number], reviewing data, lab, and radiology, placing orders, di scussing the case with the patient, discussing the case with the steam meter reader including nursing and ho spitalist more than 35 minutes. EYAL/ECTOR Voice ID: [id number] Report ID: [id number]
[2022-07-26] MEDS: TRAZODONE 50 MG TABLET PO SCH (20:19)
[2022-07-26] MEDS: ATORVASTATIN 10 MG TAB PO SCH (20:19)
[2022-07-26] MEDS: TAMSULOSIN 0.4 MG SR CAP PO SCH (20:19)
[2022-07-26] MEDS: ALPRAZOLAM 0.5 MG TABLET PO SCH (20:20)
[2022-07-26] MEDS: MORPHINE 4 MG/ML SYR IV PRN (23:41)
[2022-07-27] MEDS: PANTOPRAZOLE 40MG TABLET PO SCH (05:57)
[2022-07-27] MEDS: LEVOTHYROXINE SOD 0.125 MG TAB PO SCH (05:57)
[2022-07-27 06:26] LABS: Absolute Lymphocytes (CBC) 1.9 K/uL (0.7-4.9); Hematocrit 30.2 % (39.6-49.0); Lymphocytes % 38.3 % (15.3-44.8); MCV 96.2 fL (80-100); MPV 7.1 fL (7.6-11.3); RBC Red Blood Cell Count 3.14 M/uL (4.33-5.43)
[2022-07-27] MEDS: ACYCLOVIR 400 MG TABLET PO SCH ×3 (08:53→19:49)
[2022-07-27] MEDS: GABAPENTIN 300 MG CAP PO SCH ×3 (08:53→19:49)
[2022-07-27] MEDS: DOCUSATE NA 100 MG CAP PO SCH ×2 (08:53→19:53)
--- NOTE | 2022-07-27 11:27 | P.PN ---
Subjective Date of Service: 07/26/22 Primary Care Provider: Rock Chief Complaint: concussion Subjective: No new changes Review of Systems 10-point ROS is otherwise unremarkable General: Weakness Physical Examination - Vital Signs Temperature: 97.6 F Blood Pressure: 128/61 Pulse: 77 Respirations: 16 Pulse Ox (%): 95 - Physical Exam General: Alert, Mild distress HEENT: Atraumatic, PERRLA, EOMI Neck: Supple, JVD not distended Respiratory: Clear to auscultation bilaterally, Normal air movement Cardiovascular: Regular rate/rhythm, Normal S1 S2 Gastrointestinal: Normal bowel sounds, No tenderness Musculoskeletal: No tenderness Integumentary: No rashes Neurological: Normal speech, Normal tone, Normal affect Lymphatics: No axilla or inguinal lymphadenopathy Assessment And Plan - Current Problems (Diagnosis) (1) CKD stage 4 secondary to hypertension Current Visit: No Status: Chronic Plan: consult to Dr. Fang. Will hold nsaids, bumex and continue fluids. (2) Shingles Current Visit: Yes Status: Acute Plan: continue the acyclovir and pain management. Unfortunately need to avoid NSAIDs. May consider some steroids for the patient . Qualifiers: Herpes zoster complications: without complications Qualified Code(s): B02.9 - Zoster without complications (3) COPD (chronic obstructive pulmonary disease) Current Visit: No Status: Acute Plan: Patient is stable. Will continue levalbuterol. Can start his home inhalers if avalible. Qualifiers: (4) Chronic diastolic CHF (congestive heart failure) Current Visit: No Status: Chronic Plan: stable (5) HTN (hypertension) Current Visit: No Status: Chronic Plan: restart home medications. Qualifiers: Hypertension type: primary hypertension Discharge Plan: Alf Plan to discharge in: 48 Hours - Code Status/Comfort Care Code Status Assessed: No Critical Care: No Time Spent Managing PTS Care (In Minutes): 20
--- NOTE | 2022-07-27 11:28 | P.PN ---
Subjective Date of Service: 07/27/22 Primary Care Provider: Rock Chief Complaint: concussion Subjective: No new changes Review of Systems 10-point ROS is otherwise unremarkable General: Weakness Physical Examination - Vital Signs Temperature: 97.6 F Blood Pressure: 128/61 Pulse: 77 Respirations: 16 Pulse Ox (%): 95 - Physical Exam General: Alert, Mild distress HEENT: Atraumatic, PERRLA, EOMI Neck: Supple, JVD not distended Respiratory: Clear to auscultation bilaterally, Normal air movement Cardiovascular: Regular rate/rhythm, Normal S1 S2 Gastrointestinal: Normal bowel sounds, No tenderness Musculoskeletal: No tenderness Integumentary: No rashes Neurological: Normal speech, Normal tone, Normal affect Lymphatics: No axilla or inguinal lymphadenopathy Assessment And Plan - Current Problems (Diagnosis) (1) CKD stage 4 secondary to hypertension Current Visit: No Status: Chronic Plan: consult to Dr. Fang. Will hold nsaids, bumex and continue fluids. (2) Shingles Current Visit: Yes Status: Acute Plan: continue the acyclovir and pain management. Unfortunately need to avoid NSAIDs. May consider some steroids for the patient . Qualifiers: Herpes zoster complications: without complications Qualified Code(s): B02.9 - Zoster without complications (3) COPD (chronic obstructive pulmonary disease) Current Visit: No Status: Acute Plan: Patient is stable. Will continue levalbuterol. Can start his home inhalers if avalible. Qualifiers: (4) Chronic diastolic CHF (congestive heart failure) Current Visit: No Status: Chronic Plan: stable (5) HTN (hypertension) Current Visit: No Status: Chronic Plan: restart home medications. Qualifiers: Hypertension type: primary hypertension (6) Drug abuse Current Visit: Yes Status: Chronic Plan: He has admitted to use of thc in the past. I may have given him some benzo's will check my record. Discharge Plan: Snf Plan to discharge in: 24 Hours - Code Status/Comfort Care Code Status Assessed: No Physician Review: Patient Assessed, Agree with Above Assessment and Plan Critical Care: No Time Spent Managing PTS Care (In Minutes): 20
--- NOTE | 2022-07-27 12:12 | P.PN ---
Subjective Date of Service: 07/27/22 Primary Care Provider: Rock Chief Complaint: concussion Subjective: Other (no urinary complaints.) Physical Examination - Vital Signs Temperature: 97.6 F Blood Pressure: 128/61 Pulse: 77 Respirations: 16 Pulse Ox (%): 95 - Physical Exam General: Other (chronically ill-appearing) HEENT: Atraumatic, Normocephalic Neck: Supple, JVD not distended Respiratory: Other (symmetric chest expansion) Cardiovascular: No rubs, No murmurs Gastrointestinal: Soft and benign, No guarding Musculoskeletal: No clubbing Integumentary: No warmth Neurological: Normal tone Urinary: Other (no bladder distention) External genitalia: Deferred Rectal: Deferred Assessment And Plan - Plan 1. Acute kidney injury on advanced chronic kidney disease, mostly secondary to over diuresis. liberal by mouth fluid intake. Hold Lasix. 2. Hypertension. continue current medication regimen 3. Congestive heart failure with pulmonary hypertension. Hold lasix. Low Na diet. 4. Shingles. Acyclovir. 5. Anemia. Monitor CBC. Physician Review: Patient Assessed, Agree with Above Assessment and Plan
[2022-07-27] MEDS: NA CHLORIDE 0.9% 1,000 ML IV SCH (14:27)
[2022-07-27] MEDS: ENOXAPARIN 30 MG/0.3 ML SQ SCH (16:25)
[2022-07-27] MEDS: HYDROCODONE/APAP 10/325 TAB PO PRN (17:13)
[2022-07-27] MEDS: ALPRAZOLAM 0.5 MG TABLET PO SCH (19:49)
[2022-07-27] MEDS: TAMSULOSIN 0.4 MG SR CAP PO SCH (19:49)
[2022-07-27] MEDS: ATORVASTATIN 10 MG TAB PO SCH (19:50)
[2022-07-27] MEDS: TRAZODONE 50 MG TABLET PO SCH (19:50)
[2022-07-27 22:34] VITALS: O2SAT 95
[2022-07-28] MEDS: MORPHINE 4 MG/ML SYR IV PRN (05:10)
[2022-07-28] MEDS: NA CHLORIDE 0.9% 1,000 ML IV SCH (05:59)
[2022-07-28] MEDS: LEVOTHYROXINE SOD 0.125 MG TAB PO SCH (05:59)
[2022-07-28] MEDS: PANTOPRAZOLE 40MG TABLET PO SCH (05:59)
[2022-07-28 07:27] LABS: Absolute Lymphocytes (CBC) 1.5 K/uL (0.7-4.9); Hematocrit 28.2 % (39.6-49.0); Lymphocytes % 32.1 % (15.3-44.8); MCV 95.5 fL (80-100); MPV 6.9 fL (7.6-11.3); RBC Red Blood Cell Count 2.96 M/uL (4.33-5.43)
[2022-07-28 08:29] VITALS: BP 157/74; TEMP 97.5
[2022-07-28] MEDS: DOCUSATE NA 100 MG CAP PO SCH (08:41)
[2022-07-28] MEDS: GABAPENTIN 300 MG CAP PO SCH (08:41)
[2022-07-28] MEDS: ACYCLOVIR 400 MG TABLET PO SCH (08:41)
[2022-07-28 12:04] LABS: SARS-CoV-2 Antigen Rapid Res Negative (Negative)
--- NOTE | 2022-07-28 13:03 | P.DS ---
Admission Date: 07/25/22 Discharge Date: 07/28/22 Primary Care Provider: Rokc Disposition: TRANSFER TO [facility] Discharge Condition: GOOD Reason for Admission: concussion - Problems (1) CKD stage 4 secondary to hypertension Current Visit: No Status: Chronic (2) Shingles Current Visit: Yes Status: Acute Qualifiers: Herpes zoster complications: without complications Qualified Code(s): B02.9 - Zoster without complications (3) COPD (chronic obstructive pulmonary disease) Current Visit: No Status: Acute Qualifiers: (4) Chronic diastolic CHF (congestive heart failure) Current Visit: No Status: Chronic (5) HTN (hypertension) Current Visit: No Status: Chronic Qualifiers: Hypertension type: primary hypertension (6) Drug abuse Current Visit: Yes Status: Chronic Brief History of Present Illness: Patient is a bit confused. He is a patient of mine with Copd and ckd stage 3b. He was found on the floor yesterday. brought to the er. Was found to have shingles on his left chest and abdomen. His Kidney function has worsened. His creatine on his last admission earlier this month was 2.5 Which is good for him. He is seen by Dr. Duke. He does not difficulty breathing this time. Main complaints are confusion, weakness and pain on the left chest wall. This i s were the shingles outbreak is. Hospital Course: Patient was here after a fall and weakness. He tested positive for benzos an tch. may have gotten morphine in the ER. Will have him go to the nursing facility. This may improve his copd. help develop his strength. As well as keep him from using ilicit substances. Vital Signs/Physical Exam: Temp Pulse Resp BP Pulse Ox 97.5 F 73 16 157/74 H 95 07/28/22 08:00 07/28/22 08:00 07/28/22 08:00 07/28/22 08:00 07/28/22 08:00 General: Alert, In no apparent distress HEENT: Atraumatic, PERRLA, EOMI Neck: Supple, JVD not distended Respiratory: Clear to auscultation bilaterally, Normal air movement Cardiovascular: Regular rate/rhythm, Normal S1 S2 Gastrointestinal: Normal bowel sounds, No tenderness Musculoskeletal: No tenderness Integumentary: No rashes Neurological: Normal speech, Normal tone, Normal affect Lymphatics: No axilla or inguinal lymphadenopathy Laboratory Data at Discharge: WBC 4.60 thou/uL (4.3-10.9) 07/28/22 07:07 Hgb 9.4 g/dL (13.6-17.9) L 07/28/22 07:07 Hct 28.2 % (39.6-49.0) L 07/28/22 07:07 Plt Count 257 thou/uL (152-406) 07/28/22 07:07 PT 9.8 SECONDS (9.5-12.5) 07/24/22 20:11 INR 0.89 07/24/22 20:11 APTT 30.2 SECONDS (24.3-36.9) 07/24/22 20:11 Sodium 139 mEq/L (136-145) 07/26/22 06:18 Potassium 3.5 mEq/L (3.5-5.1) 07/26/22 06:18 BUN 45 mg/dL (7-18) H 07/26/22 06:18 Creatinine 3.33 mg/dL (0.70-1.30) H 07/26/22 06:18 Glucose 125 mg/dL (74-106) H 07/26/22 06:18 Uric Acid 9.1 mg/dL (3.5-7.2) H 07/25/22 16:45 Total Bilirubin 0.4 mg/dL (0.2-1.0) 07/24/22 20:11 AST 23 U/L (15-37) 07/24/22 20:11 ALT 18 U/L (16-61) 07/24/22 20:11 Alkaline Phosphatase 91 U/L (45-117) 07/24/22 20:11 Home Medications: Albuterol Sulfate [Proair Respiclick] 2 inh IH Q6HP PRN 06/27/22 Arformoterol Tartrate [Brovana] 15 mcg NEB BIDRESP 06/27/22 Baclofen 10 mg PO TIDP PRN 06/27/22 Benzonatate [Tessalon Perle] 100 mg PO TIDP PRN 06/27/22 Budesonide [Pulmicort] 1 puff IH BID 06/27/22 Bumetanide [Bumex] 1 mg PO BID 06/27/22 Clobetasol Propionate [Clobex] 59 ml TP BIDP PRN 06/27/22 Clonidine HCl [Catapres*] 0.2 mg PO TIDP PRN 06/27/22 Codeine/APAP [Tylenol W/Codeine #3 tab] 1 tab PO Q6HP PRN 06/27/22 Desoximetasone 15 gm TP BID 06/27/22 Ergocalciferol (Vitamin D2) [Drisdol] 50,000 unit PO SEECOM 06/27/22 Fluticasone Propionate [Flonase Allergy Relief] 2 sprays NS DAILY 06/27/22 Glipizide [Glipizide Xl] 2.5 mg PO BID 06/27/22 Ipratropium Neb [Atrovent Neb] 0.2 mg IH Q4HP PRN 06/27/22 Levothyroxine Sodium [Levothyroxine] 150 mcg PO DAILY 06/27/22 Magnesium Oxide [Mag 0X Tab] 500 mg PO DAILY 06/27/22 NIFEdipine [Nifedipine ER] 30 mg PO DAILY 06/27/22 Pravastatin [Pravachol*] 40 mg PO BEDTIME 06/27/22 Tamsulosin [Flomax] 0.4 mg PO BEDTIME 06/27/22 Trazodone [Desyrel] 50 mg PO BEDTIME 06/27/22 hydrOXYzine HCL [Atarax] 25 mg PO TIDP PRN 06/27/22 prednisoLONE [Prednisolone] 5 mg PO DAILY 06/27/22 Furosemide [Lasix] 40 mg PO DAILY #30 tab 07/05/22 Alprazolam [Xanax] 0.5 mg PO BEDTIME 07/25/22 Gabapentin 300 mg PO TID 07/25/22 Tiotropium [place] [Spiriva] 2.5 mcg IN DAILY 07/25/22 Diet: Regular Activity: Ad precious Followup: Leonel Wilkerson MD [ACTIVE - CAN ADMIT] - (1 week) Physician Review: Patient Assessed, Agree with Above Assessment and Plan Time spent managing pt's care (in minutes): 20
== END 2022-07-28 14:02 | DRG 683 ==
LOC: ER 19:17 → ERHOLD 07-25 00:41 → 2ND 07-25 00:50
PROVIDERS: ADMIT Internal Medicine; ATTEND Internal Medicine
DX: N17.0 Acute kidney failure with tubular necrosis (principal); I13.0 Hypertensive heart and chronic kidney disease with heart failure and stage 1 through stage 4 chronic kidney disease, or unspecified chronic kidney disease; I50.32 Chronic diastolic (congestive) heart failure; J44.0 Chronic obstructive pulmonary disease with (acute) lower respiratory infection; N18.4 Chronic kidney disease, stage 4 (severe); D63.1 Anemia in chronic kidney disease; I48.91 Unspecified atrial fibrillation; E86.0 Dehydration; E03.9 Hypothyroidism, unspecified; E78.5 Hyperlipidemia, unspecified; F19.10 Other psychoactive substance abuse, uncomplicated; I27.20 Pulmonary hypertension, unspecified; E88.09 Other disorders of plasma-protein metabolism, not elsewhere classified; F17.200 Nicotine dependence, unspecified, uncomplicated; B00.1 Herpesviral vesicular dermatitis; R07.81 Pleurodynia; Z79.52 Long term (current) use of systemic steroids; Z90.49 Acquired absence of other specified parts of digestive tract; Z79.84 Long term (current) use of oral hypoglycemic drugs; Z79.890 Hormone replacement therapy; Z79.899 Other long term (current) drug therapy; Z20.822 Contact with and (suspected) exposure to COVID-19; W01.0XXA Fall on same level from slipping, tripping and stumbling without subsequent striking against object, initial encounter; Y92.019 Unspecified place in single-family (private) house as the place of occurrence of the external cause; Y93.9 Activity, unspecified
CPT/HCPCS: 36415; 70450; 71250; 72125; 76770; 80048; 80053; 80307; 81001; 82550; 82947; 83605; 84145; 84439; 84443; 84484; 84550; 85025; 85610; 85730; 86850; 86900; 86901; 87040; 87086; 87088; 87811; 88302; 90471; 90714; 93005; 97116; 97161; 97530; 99285; J1650; J1720; J2270; J2405; J2543; J7030; J7050

== ENCOUNTER 2022-08-01 08:42 | Inpatient (IN) | payer OTHER ==
--- OUTSIDE RECORDS SUMMARY | 2022-08-01 09:18 | XMS REPORT | Continuity of Care Document ---
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 Medical morning. Branch predniSONE 3-0 Yes [id number] 5mg Take 1 [facility] 5 mg tablet 2-09 tablet by ity of 00:00: mouth in [place] 00 the Medical morning. Branch predniSONE 3-0 Yes [id number] 5mg Take 1 [facility] 5 mg tablet 2-09 tablet by ity of 00:00: mouth in [place] the Medical morning. Branch benzonatate 3-0 Yes [id number] 100mg Take 1 [facility] (TESSALON 1-09 capsule by ity of PERLES) 100 00:00: mouth [place] mg capsule 00 every 8 Medica l (eight) Branch hours as needed for Cough. benzonatate 2022-0 Yes [id number] 100mg Take 1 [facility] (TESSALON 1-09 capsule by ity of PERLES) 100 00:00: mouth [place] mg capsule 00 every 8 Medica l (eight) Branch hours as needed for Cough. benzonatate 2022-0 Yes [id number] 100mg Take 1 [facility] (TESSALON 1-09 capsule by ity of PERLES) 100 00:00: mouth [place] mg capsule 00 every 8 Medica l (eight) Branch hours as needed for Cough. benzonatate 2022-0 Yes [id number] 100mg Take 1 [facility] (TESSALON 1-09 capsule by ity of PERLES) 100 00:00: mouth [place] mg capsule 00 every 8 Medica l (eight) Branch hours as needed for Cough. benzonatate 3-0 Yes [id number] 100mg Take 1 [facility] (TESSALON 1-09 capsule by ity of PERLES) 100 00:00: mouth [place] mg capsule 00 every 8 Medica l (eight) Branch hours as needed for Cough. benzonatate 3-0 Yes [id number] 100mg Take 1 [facility] (TESSALON 1-09 capsule by ity of PERLES) 100 00:00: mouth [place] mg capsule 00 every 8 Medica l (eight) Branch hours as needed for Cough. benzonatate 3-0 Yes [id number] 100mg Take 1 [facility] (TESSALON 1-09 capsule by ity of PERLES) 100 00:00: mouth [place] mg capsule 00 every 8 Medica l (eight) Branch hours as needed for Cough. benzonatate 2022-0 Yes [id number] 100mg Take 1 [facility] (TESSALON 1-09 capsule by ity of PERLES) 100 00:00: mouth [place] mg capsule 00 every 8 Medica l (eight) Branch hours as needed for Cough. benzonatate 2022-0 Yes [id number] 100mg Take 1 [facility] (TESSALON 1-09 capsule by ity of PERLES) 100 00:00: mouth [place] mg capsule 00 every 8 Medica l (eight) Branch hours as needed for Cough. benzonatate 2022-0 Yes [id number] 100mg Take 1 [facility] (TESSALON 1-09 capsule by ity of PERLES) 100 00:00: mouth [place] mg capsule 00 every 8 Medica l (eight) Branch hours as needed for Cough. benzonatate 2022-0 Yes [id number] 100mg Take 1 [facility] (TESSALON 1-09 capsule by ity of PERLES) 100 00:00: mouth [place] mg capsule 00 every 8 Medica l (eight) Branch hours as needed for Cough. benzonatate 2022-0 Yes [id number] 100mg Take 1 [facility] (TESSALON 1-09 capsule by ity of PERLES) 100 00:00: mouth [place] mg capsule 00 every 8 Medica l (eight) Branch hours as needed for Cough. benzonatate 2022-0 Yes [id number] 100mg Take 1 [facility] (TESSALON 1-09 capsule by ity of PERLES) 100 00:00: mouth [place] mg capsule 00 every 8 Medica l (eight) Branch hours as needed for Cough. benzonatate 2022-0 Yes [id number] 100mg Take 1 [facility] (TESSALON 1-09 capsule by ity of PERLES) 100 00:00: mouth [place] mg capsule 00 every 8 Medica l (eight) Branch hours as needed for Cough. benzonatate 2022-0 Yes [id number] 100mg Take 1 [facility] (TESSALON 1-09 capsule by ity of PERLES) 100 00:00: mouth [place] mg capsule 00 every 8 Medica l (eight) Branch hours as needed for Cough. benzonatate 2022-0 Yes [id number] 100mg Take 1 [facility] (TESSALON 1-09 capsule by ity of PERLES) 100 00:00: mouth [place] mg capsule 00 every 8 Medica l (eight) Branch hours as needed for Cough. benzonatate 2022-0 Yes [id number] 100mg Take 1 [facility] (TESSALON 1-09 capsule by ity of PERLES) 100 00:00: mouth [place] mg capsule 00 every 8 Medica l (eight) Branch hours as needed for Cough. benzonatate 2022-0 Yes [id number] 100mg Take 1 [facility] (TESSALON 1-09 capsule by ity of PERLES) 100 00:00: mouth [place] mg capsule 00 every 8 Medica l (eight) Branch hours as needed for Cough. benzonatate 2022-0 Yes [id number] 100mg Take 1 [facility] (TESSALON 1-09 capsule by ity of PERLES) 100 00:00: mouth [place] mg capsule 00 every 8 Medica l (eight) Branch hours as needed for Cough. benzonatate 2022-0 Yes [id number] 100mg Take 1 [facility] (TESSALON 1-09 capsule by ity of PERLES) 100 00:00: mouth [place] mg capsule 00 every 8 Medica l (eight) Branch hours as needed for Cough. benzonatate 2022-0 Yes [id number] 100mg Take 1 [facility] (TESSALON 1-09 capsule by ity of PERLES) 100 00:00: mouth [place] mg capsule 00 every 8 Medica l (eight) Branch hours as needed for Cough. benzonatate 2022-0 Yes [id number] 100mg Take 1 [facility] (TESSALON 1-09 capsule by ity of PERLES) 100 00:00: mouth [place] mg capsule 00 every 8 Medica l (eight) Branch hours as needed for Cough. benzonatate 2022-0 Yes [id number] 100mg Take 1 [facility] (TESSALON 1-09 capsule by ity of PERLES) 100 00:00: mouth [place] mg capsule 00 every 8 Medica l (eight) Branch hours as needed for Cough. benzonatate 2022-0 Yes [id number] 100mg Take 1 [facility] (TESSALON 1-09 capsule by ity of PERLES) 100 00:00: mouth [place] mg capsule 00 every 8 Medica l (eight) Branch hours as needed for Cough. benzonatate Yes [id number] 100mg Take 1 [facility] (TESSALON 1-09 capsule by [address] [address]) 100 00:00: mouth [place] mg capsule 00 every 8 Medica l (eight) Branch hours as needed for Cough. benzonatate Yes [id number] 100mg Take 1 [facility] (TESSALON 1-09 capsule by ity of [address]) 100 00:00: mouth [place] mg capsule 00 every 8 Medica l (eight) Branch hours as needed for Cough. cloNIDine 2022- No [id number] .2mg Un renetta (CATAPRES) 03-08 ity of tablet 0.2 22:00: 21:21 [place] mg 00 :00 Medical Branch cloNIDine 2022- No [id number] .[id number] 0.2 mg, [facility] (CATAPRES) 03-08 Oral, ity of tablet 0.2 22:00: 21:21 ONCE, 1 [place] as mg 00 :00 dose, On Medical [facility] 03/08/22 Branch at 1600, Routine cloNIDine 2022- No [id number] .2mg Un renetta (CATAPRES) 03-08 ity of tablet 0.2 22:00: 21:21 [place] mg 00 :00 Medical Branch cloNIDine 2022- No [id number] .2mg 0.2 mg, [facility] (CATAPRES) 03-08 Oral, ity of tablet 0.2 22:00: 21:21 ONCE, 1 [place] as mg 00 :00 dose, On Medical [facility] 03/08/22 Branch at 1600, Routine bumetanide 2022- No 1mg Take 1 mg U nivers 1 mg tablet 03-08 by mouth ity of 15:30: 00:00 in the [place] 31 :00 morning. Medical Indication Branch s: reports kidney Dr Rx, ~2 mths ago bumetanide 2022- No 1mg Take 1 mg U nivers 1 mg tablet 03-08 by mouth ity of 15:30: 00:00 in the [place] 31 :00 morning. Medical Indication Branch s: reports kidney Dr Rx, ~2 mths ago bumetanide 2022-2022- No 1mg Take 1 mg U nivers 1 mg tablet 03-08 by mouth ity of 15:30: 00:00 in the [place] 31 :00 morning. Medical Indication Branch s: reports kidney Dr Rx, ~2 mths ago bumetanide 2022-2022- No 1mg Take 1 mg U nivers 1 mg tablet 03-08 by mouth ity of 15:30: 00:00 in the [place] 31 :00 morning. Medical Indication Branch s: reports kidney Dr Rx, ~2 mths ago levothyroxi Yes [id number] 150ug Take 1 [facility] ne 150 mcg 1-05 tablet by ity of tablet 00:00: mouth [place] 00 every Medical morning. Branch tamsulosin Yes [id number] .4mg Take 1 [facility] 0.4 mg 24 03-08 9102 capsule by ity of hr capsule 00:00: mouth in [place] as 00 the Medical morning. Branch budesonide Yes [id number] .5mg Inhale 2 [facility] 0.5 mg/2 mL 1-05 mL in the ity of nebulizer 00:00: morning [place] solution 00 and 2 mL Medical in the Branch evening. traZODone Yes [id number] 50mg Take 1 U nivers 50 mg 1-05 tablet by ity of tablet 00:00: mouth at [place] 00 bedtime. Medical Branch doxepin 25 Yes [id number] 25mg Take 1 [facility] mg capsule 1-05 capsule by ity of 00:00: mouth at [place] 00 bedtime. Medical Branch glipiZIDE Yes [id number] 2.5mg Take 1 U nivers XL 2.5 [...] Dr Rx, ~2 mths ago arformotero Yes [id number] 15ug Use 2 mL [facility] L 15 mcg/2 1-05 as ity of mL 00:00: directed [place] nebulizer 00 in the Medical solution morning Branch and 2 mL in the evening. ipratropium Yes [id number] .5mg Inhale 2.5 [facility] 0.02 % 1-05 mL every 4 ity of nebulizer 00:00: (four) [place] solution 00 hours as Medical needed for Branch Wheezing or Shortness of Breath. albuterol Yes [id number] 2{puff} Inhale 2 [facility] 90 1-05 Puffs ity of mcg/actuati 00:00: every 6 [place] as on inhaler 00 (six) Medical hours as Branch needed for Wheezing or Shortness of Breath. albuterol Yes [id number] 2.5mg Inhale 3 [facility] 2.5 mg /3 1-05 mL every 2 ity of mL (0.083 00:00: (two) [place] %) 00 hours as Medical nebulizer needed for Bran ch solution Shortness of Breath or Wheezing. cloNIDine Yes [id number] .2mg Take 1 U nivers 0.2 mg 1-05 tablet by ity of tablet 00:00: mouth 3 00 (three) Medical times Branch daily as needed (Uncontrol led Hypertensi on). Take 1 Tab if BP > 150/90 NIFEdipine Yes [id number] 30mg Take 1 U nivers ER 30 mg 1-05 tablet by ity of tablet 00:00: mouth in [place] 00 the Medical morning. Branch levothyroxi Yes [id number] 150ug Take 1 [facility] ne 150 mcg 1-05 tablet by ity of tablet 00:00: mouth [place] 00 every Medical morning. Branch tamsulosin Yes [id number] .4mg Take 1 [facility] 0.4 mg 24 1-05 9102 capsule by ity of hr capsule 00:00: mouth in [place] as 00 the Medical morning. Branch budesonide Yes [id number] .5mg Inhale 2 [facility] 0.5 mg/2 mL 1-05 mL in the ity of nebulizer 00:00: morning [place] solution 00 and 2 mL Medical in the Branch evening. traZODone 0 Yes [id number] 50mg Take 1 U nivers 50 mg 1-05 tablet by ity of tablet 00:00: mouth at [place] 00 bedtime. Medical Branch doxepin 25 Yes [id number] 25mg Take 1 [facility] mg capsule 1-05 capsule by ity of 00:00: mouth at [place] 00 bedtime. Medical Branch glipiZIDE Yes [id number] 2.5mg Take 1 U nivers XL 2.5 [...] Dr Rx, ~2 mths ago arformotero Yes [id number] 15ug Use 2 mL [facility] L 15 mcg/2 1-05 as ity of mL 00:00: directed [place] nebulizer 00 in the Medical solution morning Branch and 2 mL in the evening. ipratropium Yes [id number] .5mg Inhale 2.5 [facility] 0.02 % 1-05 mL every 4 ity of nebulizer 00:00: (four) [place] solution 00 hours as Medical needed for Branch Wheezing or Shortness of Breath. albuterol Yes [id number] 2{puff} Inhale 2 [facility] 90 1-05 Puffs ity of mcg/actuati 00:00: every 6 [place] as on inhaler 00 (six) Medical hours as Branch needed for Wheezing or Shortness of Breath. albuterol Yes [id number] 2.5mg Inhale 3 [facility] 2.5 mg /3 1-05 mL every 2 ity of mL (0.083 00:00: (two) [place] %) 00 hours as Medical nebulizer needed for Bran ch solution Shortness of Breath or Wheezing. cloNIDine 0 Yes [id number] .2mg Take 1 U nivers 0.2 mg 1-05 tablet by ity of tablet 00:00: mouth 3 [place] 00 (three) Medical times Branch daily as needed (Uncontrol led Hypertensi on). Take 1 Tab if BP > 150/90 NIFEdipine 0 Yes [id number] 30mg Take 1 U nivers ER 30 mg 1-05 tablet by ity of tablet 00:00: mouth in [place] 00 the Medical morning. Branch levothyroxi 2022-0 Yes [id number] 150ug Take 1 [facility] ne 150 mcg 1-05 tablet by ity of tablet 00:00: mouth [place] 00 every Medical morning. Branch tamsulosin Yes [id number] .4mg Take 1 [facility] 0.4 mg 24 1-05 9102 capsule by ity of hr capsule 00:00: mouth in [place] as 00 the Medical morning. Branch budesonide Yes [id number] .5mg Inhale 2 [facility] 0.5 mg/2 mL 1-05 mL in the ity of nebulizer 00:00: morning [place] solution 00 and 2 mL Medical in the Branch evening. traZODone 0 Yes [id number] 50mg Take 1 U nivers 50 mg 1-05 tablet by ity of tablet 00:00: mouth at [place] 00 bedtime. Medical Branch doxepin 25 2022-0 Yes [id number] 25mg Take 1 [facility] mg capsule 1-05 capsule by ity of 00:00: mouth at [place] 00 bedtime. Medical Branch glipiZIDE 0 Yes [id number] 2.5mg Take 1 U nivers XL 2.5 mg 1-05 tablet by ity o f 24 hr 00:00: mouth in [place] tablet 00 the Medical morning Branch and 1 tablet in the evening. bumetanide 0 Yes 1mg Take 1 Unive rs 1 mg tablet 1-05 tablet by ity of 00:00: mouth [place] 00 every Medical morning Branch and evening. Indication s: reports kidney Dr Rx, ~2 mths ago arformotero 2022-0 Yes [id number] 15ug Use 2 mL [facility] L 15 mcg/2 1-05 as ity of mL 00:00: directed [place] nebulizer 00 in the Medical solution morning Branch and 2 mL in the evening. ipratropium 2022-0 Yes [id number] .5mg Inhale 2.5 [facility] 0.02 % 1-05 mL every 4 ity of nebulizer 00:00: (four) [place] solution 00 hours as Medical needed for Branch Wheezing or Shortness of Breath. albuterol Yes [id number] 2{puff} Inhale 2 [facility] 90 1-05 Puffs ity of mcg/actuati 00:00: every 6 [place] as on inhaler 00 (six) Medical hours as Branch needed for Wheezing or Shortness of Breath. albuterol 0 Yes [id number] 2.5mg Inhale 3 [facility] 2.5 mg /3 1-05 mL every 2 ity of mL (0.083 00:00: (two) [place] %) 00 hours as Medical nebulizer needed for Bran ch solution Shortness of Breath or Wheezing. cloNIDine Yes [id number] .2mg Take 1 U nivers 0.2 mg 1-05 tablet by ity of tablet 00:00: mouth 3 [place] 00 (three) Medical times Branch daily as needed (Uncontrol led Hypertensi on). Take 1 Tab if BP > 150/90 NIFEdipine 2022-0 Yes [id number] 30mg Take 1 U nivers ER 30 mg 1-05 tablet by ity of tablet 00:00: mouth in [place] 00 the Medical morning. Branch levothyroxi Yes [id number] 150ug Take 1 [facility] ne 150 mcg 1-05 tablet by ity of tablet 00:00: mouth [place] 00 every Medical morning. Branch tamsulosin Yes [id number] .4mg Take 1 [facility] 0.4 mg 24 1-05 9102 capsule by ity of hr capsule 00:00: mouth in [place] as 00 the Medical morning. Branch budesonide Yes [id number] .5mg Inhale 2 [facility] 0.5 mg/2 mL 1-05 mL in the ity of nebulizer 00:00: morning [place] solution 00 and 2 mL Medical in the Branch evening. traZODone 2022-0 Yes [id number] 50mg Take 1 U nivers 50 mg 1-05 tablet by ity of tablet 00:00: mouth at [place] 00 bedtime. Medical Branch doxepin 25 2022-0 Yes [id number] 25mg Take 1 [facility] mg capsule 1-05 capsule by ity of 00:00: mouth at [place] 00 bedtime. Medical Branch glipiZIDE 2022-0 Yes [id number] 2.5mg Take 1 U nivers XL 2.5 [...] Dr Rx, ~2 mths ago arformotero Yes [id number] 15ug Use 2 mL [facility] L 15 mcg/2 1-05 as ity of mL 00:00: directed [place] nebulizer 00 in the Medical solution morning Branch and 2 mL in the evening. ipratropium Yes [id number] .5mg Inhale 2.5 [facility] 0.02 % 1-05 mL every 4 ity of nebulizer 00:00: (four) [place] solution 00 hours as Medical needed for Branch Wheezing or Shortness of Breath. albuterol Yes [id number] 2{puff} Inhale 2 [facility] 90 1-05 Puffs ity of mcg/actuati 00:00: every 6 [place] as on inhaler 00 (six) Medical hours as Branch needed for Wheezing or Shortness of Breath. albuterol Yes [id number] 2.5mg Inhale 3 [facility] 2.5 mg /3 1-05 mL every 2 ity of mL (0.083 00:00: (two) [place] %) 00 hours as Medical nebulizer needed for Bran ch solution Shortness of Breath or Wheezing. cloNIDine Yes [id number] .2mg Take 1 U nivers 0.2 mg 1-05 tablet by ity of tablet 00:00: mouth 3 [place] 00 (three) Medical times Branch daily as needed (Uncontrol led Hypertensi on). Take 1 Tab if BP > 150/90 NIFEdipine Yes [id number] 30mg Take 1 U nivers ER 30 mg 1-05 tablet by ity of tablet 00:00: mouth in [place] 00 the Medical morning. Branch levothyroxi Yes [id number] 150ug Take 1 [facility] ne 150 mcg 1-05 tablet by ity of tablet 00:00: mouth [place] 00 every Medical morning. Branch tamsulosin Yes [id number] .4mg Take 1 [facility] 0.4 mg 24 1-05 9102 capsule by ity of hr capsule 00:00: mouth in [place] as 00 the Medical morning. Branch budesonide 0 Yes [id number] .5mg Inhale 2 [facility] 0.5 mg/2 mL 1-05 mL in the ity of nebulizer 00:00: morning [place] solution 00 and 2 mL Medical in the Branch evening. traZODone 0 Yes [id number] 50mg Take 1 U nivers 50 mg 1-05 tablet by ity of tablet 00:00: mouth at [place] 00 bedtime. Medical Branch doxepin 25 0 Yes [id number] 25mg Take 1 [facility] mg capsule 1-05 capsule by ity of 00:00: mouth at [place] 00 bedtime. Medical Branch glipiZIDE Yes [id number] 2.5mg Take 1 U nivers XL 2.5 [...] Rx, ~2 mths ago arformotero 0 Yes [id number] 15ug Use 2 mL [facility] L 15 mcg/2 1-05 as ity of mL 00:00: directed [place] nebulizer 00 in the Medical solution morning Branch and 2 mL in the evening. ipratropium 0 Yes [id number] .5mg Inhale 2.5 [facility] 0.02 % 1-05 mL every 4 ity of nebulizer 00:00: (four) [place] solution 00 hours as Medical needed for Branch Wheezing or Shortness of Breath. albuterol 2022-0 Yes [id number] 2{puff} Inhale 2 [facility] 90 1-05 Puffs ity of mcg/actuati 00:00: every 6 [place] as on inhaler 00 (six) Medical hours as Branch needed for Wheezing or Shortness of Breath. albuterol 2022-0 Yes [id number] 2.5mg Inhale 3 [facility] 2.5 mg /3 1-05 mL every 2 ity of mL (0.083 00:00: (two) [place] %) 00 hours as Medical nebulizer needed for Bran ch solution Shortness of Breath or Wheezing. cloNIDine Yes [id number] .2mg Take 1 U nivers 0.2 mg 1-05 tablet by ity of tablet 00:00: mouth 3 [place] 00 (three) Medical times Branch daily as needed (Uncontrol led Hypertensi on). Take 1 Tab if BP > 150/90 NIFEdipine Yes [id number] 30mg Take 1 U nivers ER 30 mg 1-05 tablet by ity of tablet 00:00: mouth in [place] 00 the Medical morning. Branch levothyroxi Yes [id number] 150ug Take 1 [facility] ne 150 mcg 1-05 tablet by ity of tablet 00:00: mouth [place] 00 every Medical morning. Branch tamsulosin Yes [id number] .4mg Take 1 [facility] 0.4 mg 24 1-05 9102 capsule by ity of hr capsule 00:00: mouth in [place] as 00 the Medical morning. Branch budesonide Yes [id number] .5mg Inhale 2 [facility] 0.5 mg/2 mL 1-05 mL in the ity of nebulizer 00:00: morning [place] solution 00 and 2 mL Medical in the Branch evening. traZODone Yes [id number] 50mg Take 1 U nivers 50 mg 1-05 tablet by ity of tablet 00:00: mouth at [place] 00 bedtime. Medical Branch doxepin 25 Yes [id number] 25mg Take 1 [facility] mg capsule 1-05 capsule by ity of 00:00: mouth at [place] 00 bedtime. Medical Branch glipiZIDE Yes [id number] 2.5mg Take 1 U nivers XL 2.5 [...] Dr Rx, ~2 mths ago arformotero Yes [id number] 15ug Use 2 mL [facility] L 15 mcg/2 1-05 as ity of mL 00:00: directed [place] nebulizer 00 in the Medical solution morning Branch and 2 mL in the evening. ipratropium Yes [id number] .5mg Inhale 2.5 [facility] 0.02 % 1-05 mL every 4 ity of nebulizer 00:00: (four) [place] solution 00 hours as Medical needed for Branch Wheezing or Shortness of Breath. albuterol Yes [id number] 2{puff} Inhale 2 [facility] 90 1-05 Puffs ity of mcg/actuati 00:00: every 6 [place] as on inhaler 00 (six) Medical hours as Branch needed for Wheezing or Shortness of Breath. albuterol Yes [id number] 2.5mg Inhale 3 [facility] 2.5 mg /3 1-05 mL every 2 ity of mL (0.083 00:00: (two) [place] %) 00 hours as Medical nebulizer needed for Bran ch solution Shortness of Breath or Wheezing. cloNIDine Yes [id number] .2mg Take 1 U nivers 0.2 mg 1-05 tablet by ity of tablet 00:00: mouth 3 [place] 00 (three) Medical times Branch daily as needed (Uncontrol led Hypertensi on). Take 1 Tab if BP > 150/90 NIFEdipine Yes [id number] 30mg Take 1 U nivers ER 30 mg 1-05 tablet by ity of tablet 00:00: mouth in [place] 00 the Medical morning. Branch levothyroxi Yes [id number] 150ug Take 1 [facility] ne 150 mcg 1-05 tablet by ity of tablet 00:00: mouth [place] 00 every Medical morning. Branch tamsulosin Yes [id number] .4mg Take 1 [facility] 0.4 mg 24 1-05 9102 capsule by ity of hr capsule 00:00: mouth in [place] as 00 the Medical morning. Branch budesonide Yes [id number] .5mg Inhale 2 [facility] 0.5 mg/2 mL 1-05 mL in the ity of nebulizer 00:00: morning [place] solution 00 and 2 mL Medical in the Branch evening. traZODone Yes [id number] 50mg Take 1 U nivers 50 mg 1-05 tablet by ity of tablet 00:00: mouth at [place] 00 bedtime. Medical Branch doxepin 25 Yes [id number] 25mg Take 1 [facility] mg capsule 1-05 capsule by ity of 00:00: mouth at [place] 00 bedtime. Medical Branch glipiZIDE Yes [id number] 2.5mg Take 1 U nivers XL 2.5 [...] Dr Rx, ~2 mths ago arformotero Yes [id number] 15ug Use 2 mL [facility] L 15 mcg/2 1-05 as ity of mL 00:00: directed [place] nebulizer 00 in the Medical solution morning Branch and 2 mL in the evening. ipratropium Yes [id number] .5mg Inhale 2.5 [facility] 0.02 % 1-05 mL every 4 ity of nebulizer 00:00: (four) [place] solution 00 hours as Medical needed for Branch Wheezing or Shortness of Breath. albuterol Yes [id number] 2{puff} Inhale 2 [facility] 90 1-05 Puffs ity of mcg/actuati 00:00: every 6 [place] as on inhaler 00 (six) Medical hours as Branch needed for Wheezing or Shortness of Breath. albuterol Yes [id number] 2.5mg Inhale 3 [facility] 2.5 mg /3 1-05 mL every 2 ity of mL (0.083 00:00: (two) [place] %) 00 hours as Medical nebulizer needed for Bran ch solution Shortness of Breath or Wheezing. cloNIDine Yes [id number] .2mg Take 1 U nivers 0.2 mg 1-05 tablet by ity of tablet 00:00: mouth 3 [place] 00 (three) Medical times Branch daily as needed (Uncontrol led Hypertensi on). Take 1 Tab if BP > 150/90 NIFEdipine Yes [id number] 30mg Take 1 U nivers ER 30 mg 1-05 tablet by ity of tablet 00:00: mouth in [place] 00 the Medical morning. Branch levothyroxi Yes [id number] 150ug Take 1 [facility] ne 150 mcg 1-05 tablet by ity of tablet 00:00: mouth [place] 00 every Medical morning. Branch tamsulosin Yes [id number] .4mg Take 1 [facility] 0.4 mg 24 1-05 9102 capsule by ity of hr capsule 00:00: mouth in [place] as 00 the Medical morning. Branch budesonide Yes [id number] .5mg Inhale 2 [facility] 0.5 mg/2 mL 1-05 mL in the ity of nebulizer 00:00: morning [place] solution 00 and 2 mL Medical in the Branch evening. traZODone Yes [id number] 50mg Take 1 U nivers 50 mg 1-05 tablet by ity of tablet 00:00: mouth at [place] 00 bedtime. Medical Branch doxepin 25 Yes [id number] 25mg Take 1 [facility] mg capsule 1-05 capsule by ity of 00:00: mouth at [place] 00 bedtime. Medical Branch glipiZIDE Yes [id number] 2.5mg Take 1 U nivers XL 2.5 mg 1-05 tablet by ity o f 24 hr 00:00: mouth in [place] tablet 00 the Medical morning Branch and 1 tablet in the evening. bumetanide Yes 1mg Take 1 Unive rs 1 mg tablet 1-05 tablet by ity of 00:00: mouth [place] 00 every Medical morning Branch and evening. Indication s: reports kidney Dr Rx, ~2 mths ago arformotero 0 Yes [id number] 15ug Use 2 mL [facility] L 15 mcg/2 1-05 as ity of mL 00:00: directed [place] nebulizer 00 in the Medical solution morning Branch and 2 mL in the evening. ipratropium 0 Yes [id number] .5mg Inhale 2.5 [facility] 0.02 % 1-05 mL every 4 ity of nebulizer 00:00: (four) [place] solution 00 hours as Medical needed for Branch Wheezing or Shortness of Breath. albuterol 0 Yes [id number] 2{puff} Inhale 2 [facility] 90 1-05 Puffs ity of mcg/actuati 00:00: every 6 [place] as on inhaler 00 (six) Medical hours as Branch needed for Wheezing or Shortness of Breath. albuterol Yes [id number] 2.5mg Inhale 3 [facility] 2.5 mg /3 1-05 mL every 2 ity of mL (0.083 00:00: (two) [place] %) 00 hours as Medical nebulizer needed for Bran ch solution Shortness of Breath or Wheezing. cloNIDine Yes [id number] .2mg Take 1 U nivers 0.2 mg 1-05 tablet by ity of tablet 00:00: mouth 3 [place] 00 (three) Medical times Branch daily as needed (Uncontrol led Hypertensi on). Take 1 Tab if BP > 150/90 NIFEdipine Yes [id number] 30mg Take 1 U nivers ER 30 mg 1-05 tablet by ity of tablet 00:00: mouth in [place] 00 the Medical morning. Branch levothyroxi Yes [id number] 150ug Take 1 [facility] ne 150 mcg 1-05 tablet by ity of tablet 00:00: mouth [place] 00 every Medical morning. Branch tamsulosin Yes [id number] .4mg Take 1 [facility] 0.4 mg 24 1-05 9102 capsule by ity of hr capsule 00:00: mouth in [place] as 00 the Medical morning. Branch budesonide Yes [id number] .5mg Inhale 2 [facility] 0.5 mg/2 mL 1-05 mL in the ity of nebulizer 00:00: morning [place] solution 00 and 2 mL Medical in the Branch evening. traZODone 0 Yes [id number] 50mg Take 1 [facility] nivers 50 mg 1-05 tablet by ity of tablet 00:00: mouth at [place] 00 bedtime. Medical Branch doxepin 25 0 Yes [id number] 25mg Take 1 [facility] mg capsule 1-05 capsule by ity of 00:00: mouth at [place] 00 bedtime. Medical Branch glipiZIDE 0 Yes [id number] 2.5mg Take 1 [facility] nivers XL 2.5 [...] Dr Rx, ~2 mths ago arformotero Yes [id number] 15ug Use 2 mL [facility] L 15 mcg/2 1-05 as ity of mL 00:00: directed [place] nebulizer 00 in the Medical solution morning Branch and 2 mL in the evening. ipratropium Yes [id number] .5mg Inhale 2.5 [facility] 0.02 % 1-05 mL every 4 ity of nebulizer 00:00: (four) [place] solution 00 hours as Medical needed for Branch Wheezing or Shortness of Breath. albuterol Yes [id number] 2{puff} Inhale 2 [facility] 90 1-05 Puffs ity of mcg/actuati 00:00: every 6 [place] as on inhaler 00 (six) Medical hours as Branch needed for Wheezing or Shortness of Breath. albuterol Yes [id number] 2.5mg Inhale 3 [facility] 2.5 mg /3 1-05 mL every 2 ity of mL (0.083 00:00: (two) [place] %) 00 hours as Medical nebulizer needed for Bran ch solution Shortness of Breath or Wheezing. cloNIDine Yes [id number] .2mg Take 1 [facility] nivers 0.2 mg 1-05 tablet by ity of tablet 00:00: mouth 3 [place] 00 (three) Medical times Branch daily as needed (Uncontrol led Hypertensi on). Take 1 Tab if BP > 150/90 NIFEdipine Yes [id number] 30mg Take 1 [facility] nivers ER 30 mg 1-05 tablet by ity of tablet 00:00: mouth in [place] 00 the Medical morning. Branch levothyroxi Yes [id number] 150ug Take 1 [facility] ne 150 mcg 1-05 tablet by ity of tablet 00:00: mouth [place] 00 every Medical morning. Branch tamsulosin Yes [id number] .4mg Take 1 [facility] 0.4 mg 24 1-05 9102 capsule by ity of hr capsule 00:00: mouth in [place] as 00 the Medical morning. Branch budesonide Yes [id number] .5mg Inhale 2 [facility] 0.5 mg/2 mL 1-05 mL in the ity of nebulizer 00:00: morning [place] solution 00 and 2 mL Medical in the Branch evening. traZODone 0 Yes [id number] 50mg Take 1 [facility] nivers 50 mg 1-05 tablet by ity of tablet 00:00: mouth at [place] 00 bedtime. Medical Branch doxepin 25 Yes [id number] 25mg Take 1 [facility] mg capsule 1-05 capsule by ity of 00:00: mouth at [place] 00 bedtime. Medical Branch glipiZIDE Yes [id number] 2.5mg Take 1 [facility] nivers XL 2.5 [...] Dr Rx, ~2 mths ago arformotero Yes [id number] 15ug Use 2 mL [facility] L 15 mcg/2 1-05 as ity of mL 00:00: directed [place] nebulizer 00 in the Medical solution morning Branch and 2 mL in the evening. ipratropium Yes [id number] .5mg Inhale 2.5 [facility] 0.02 % 1-05 mL every 4 ity of nebulizer 00:00: (four) [place] solution 00 hours as Medical needed for Branch Wheezing or Shortness of Breath. albuterol 0 Yes [id number] 2{puff} Inhale 2 [facility] 90 1-05 Puffs ity of mcg/actuati 00:00: every 6 [place] as on inhaler 00 (six) Medical hours as Branch needed for Wheezing or Shortness of Breath. albuterol 0 Yes [id number] 2.5mg Inhale 3 [facility] 2.5 mg /3 1-05 mL every 2 ity of mL (0.083 00:00: (two) [place] %) 00 hours as Medical nebulizer needed for Bran ch solution Shortness of Breath or Wheezing. cloNIDine Yes [id number] .2mg Take 1 [facility] nivers 0.2 mg 1-05 tablet by ity of tablet 00:00: mouth 3 [place] 00 (three) Medical times Branch daily as needed (Uncontrol led Hypertensi on). Take 1 Tab if BP > 150/90 NIFEdipine 2022-0 Yes [id number] 30mg Take 1 [facility] nivers ER 30 mg 1-05 tablet by ity of tablet 00:00: mouth in [place] 00 the Medical morning. Branch levothyroxi 2022-0 Yes [id number] 150ug Take 1 [facility] ne 150 mcg 1-05 tablet by ity of tablet 00:00: mouth [place] 00 every Medical morning. Branch tamsulosin Yes [id number] .4mg Take 1 [facility] 0.4 mg 24 1-05 9102 capsule by ity of hr capsule 00:00: mouth in [place] as 00 the Medical morning. Branch budesonide Yes [id number] .5mg Inhale 2 [facility] 0.5 mg/2 mL 1-05 mL in the ity of nebulizer 00:00: morning [place] solution 00 and 2 mL Medical in the Branch evening. traZODone 0 Yes [id number] 50mg Take 1 [facility] nivers 50 mg 1-05 tablet by ity of tablet 00:00: mouth at [place] 00 bedtime. Medical Branch doxepin 25 0 Yes [id number] 25mg Take 1 [facility] mg capsule 1-05 capsule by ity of 00:00: mouth at [place] 00 bedtime. Medical Branch glipiZIDE 0 Yes [id number] 2.5mg Take 1 [facility] nivers XL 2.5 [...] Rx, ~2 mths ago arformotero 2022-0 Yes [id number] 15ug Use 2 mL [facility] L 15 mcg/2 1-05 as ity of mL 00:00: directed [place] nebulizer 00 in the Medical solution morning Branch and 2 mL in the evening. ipratropium 2023-0 Yes [id number] .5mg Inhale 2.5 [facility] 0.02 % 1-05 mL every 4 ity of nebulizer 00:00: (four) [place] solution 00 hours as Medical needed for Branch Wheezing or Shortness of Breath. albuterol Yes [id number] 2{puff} Inhale 2 [facility] 90 1-05 Puffs ity of mcg/actuati 00:00: every 6 [place] as on inhaler 00 (six) Medical hours as Branch needed for Wheezing or Shortness of Breath. albuterol Yes [id number] 2.5mg Inhale 3 [facility] 2.5 mg /3 1-05 mL every 2 ity of mL (0.083 00:00: (two) [place] %) 00 hours as Medical nebulizer needed for Bran ch solution Shortness of Breath or Wheezing. cloNIDine Yes [id number] .2mg Take 1 [facility] nivers 0.2 mg 1-05 tablet by ity of tablet 00:00: mouth 3 [place] 00 (three) Medical times Branch daily as needed (Uncontrol led Hypertensi on). Take 1 Tab if BP > 150/90 NIFEdipine Yes [id number] 30mg Take 1 [facility] nivers ER 30 mg 1-05 tablet by ity of tablet 00:00: mouth in [place] 00 the Medical morning. Branch levothyroxi Yes [id number] 150ug Take 1 [facility] ne 150 mcg 1-05 tablet by ity of tablet 00:00: mouth [place] 00 every Medical morning. Branch tamsulosin Yes [id number] .4mg Take 1 [facility] 0.4 mg 24 1-05 9102 capsule by ity of hr capsule 00:00: mouth in [place] as 00 the Medical morning. Branch budesonide Yes [id number] .5mg Inhale 2 [facility] 0.5 mg/2 mL 1-05 mL in the ity of nebulizer 00:00: morning [place] solution 00 and 2 mL Medical in the Branch evening. traZODone 0 Yes [id number] 50mg Take 1 [facility] nivers 50 mg 1-05 tablet by ity of tablet 00:00: mouth at [place] 00 bedtime. Medical Branch doxepin 25 0 Yes [id number] 25mg Take 1 [facility] mg capsule 1-05 capsule by ity of 00:00: mouth at [place] 00 bedtime. Medical Branch glipiZIDE Yes [id number] 2.5mg Take 1 [facility] nivers XL 2.5 [...] Dr Rx, ~2 mths ago arformotero Yes [id number] 15ug Use 2 mL [facility] L 15 mcg/2 1-05 as ity of mL 00:00: directed [place] nebulizer 00 in the Medical solution morning Branch and 2 mL in the evening. ipratropium Yes [id number] .5mg Inhale 2.5 [facility] 0.02 % 1-05 mL every 4 ity of nebulizer 00:00: (four) [place] solution 00 hours as Medical needed for Branch Wheezing or Shortness of Breath. albuterol Yes [id number] 2{puff} Inhale 2 [facility] 90 1-05 Puffs ity of mcg/actuati 00:00: every 6 [place] as on inhaler 00 (six) Medical hours as Branch needed for Wheezing or Shortness of Breath. albuterol Yes [id number] 2.5mg Inhale 3 [facility] 2.5 mg /3 1-05 mL every 2 ity of mL (0.083 00:00: (two) [place] %) 00 hours as Medical nebulizer needed for Bran ch solution Shortness of Breath or Wheezing. cloNIDine Yes [id number] .2mg Take 1 [facility] nivers 0.2 mg 1-05 tablet by ity of tablet 00:00: mouth 3 [place] 00 (three) Medical times Branch daily as needed (Uncontrol led Hypertensi on). Take 1 Tab if BP > 150/90 NIFEdipine Yes [id number] 30mg Take 1 [facility] nivers ER 30 mg 1-05 tablet by ity of tablet 00:00: mouth in [place] 00 the Medical morning. Branch levothyroxi Yes [id number] 150ug Take 1 [facility] ne 150 mcg 1-05 tablet by ity of tablet 00:00: mouth [place] 00 every Medical morning. Branch tamsulosin Yes [id number] .4mg Take 1 [facility] 0.4 mg 24 1-05 9102 capsule by ity of hr capsule 00:00: mouth in [place] as 00 the Medical morning. Branch budesonide 0 Yes [id number] .5mg Inhale 2 [facility] 0.5 mg/2 mL 1-05 mL in the ity of nebulizer 00:00: morning [place] solution 00 and 2 mL Medical in the Branch evening. traZODone Yes [id number] 50mg Take 1 [facility] nivers 50 mg 1-05 tablet by ity of tablet 00:00: mouth at [place] 00 bedtime. Medical Branch doxepin 25 0 Yes [id number] 25mg Take 1 [facility] mg capsule 1-05 capsule by ity of 00:00: mouth at [place] 00 bedtime. Medical Branch glipiZIDE Yes [id number] 2.5mg Take 1 [facility] nivers XL 2.5 [...] Rx, ~2 mths ago arformotero 0 Yes [id number] 15ug Use 2 mL [facility] L 15 mcg/2 1-05 as ity of mL 00:00: directed [place] nebulizer 00 in the Medical solution morning Branch and 2 mL in the evening. ipratropium 0 Yes [id number] .5mg Inhale 2.5 [facility] 0.02 % 1-05 mL every 4 ity of nebulizer 00:00: (four) [place] solution 00 hours as Medical needed for Branch Wheezing or Shortness of Breath. albuterol 0 Yes [id number] 2{puff} Inhale 2 [facility] 90 1-05 Puffs ity of mcg/actuati 00:00: every 6 [place] as on inhaler 00 (six) Medical hours as Branch needed for Wheezing or Shortness of Breath. albuterol 0 Yes [id number] 2.5mg Inhale 3 [facility] 2.5 mg /3 1-05 mL every 2 ity of mL (0.083 00:00: (two) [place] %) 00 hours as Medical nebulizer needed for Bran ch solution Shortness of Breath or Wheezing. cloNIDine 0 Yes [id number] .2mg Take 1 [facility] nivers 0.2 mg 1-05 tablet by ity of tablet 00:00: mouth 3 [place] 00 (three) Medical times Branch daily as needed (Uncontrol led Hypertensi on). Take 1 Tab if BP > 150/90 NIFEdipine 2022-0 Yes [id number] 30mg Take 1 [facility] nivers ER 30 mg 1-05 tablet by ity of tablet 00:00: mouth in [place] 00 the Medical morning. Branch levothyroxi 0 Yes [id number] 150ug Take 1 [facility] ne 150 mcg 1-05 tablet by ity of tablet 00:00: mouth [place] 00 every Medical morning. Branch tamsulosin 0 Yes [id number] .4mg Take 1 [facility] 0.4 mg 24 1-05 9102 capsule by ity of hr capsule 00:00: mouth in [place] as 00 the Medical morning. Branch budesonide 0 Yes [id number] .5mg Inhale 2 [facility] 0.5 mg/2 mL 1-05 mL in the ity of nebulizer 00:00: morning [place] solution 00 and 2 mL Medical in the Branch evening. traZODone 2022-0 Yes [id number] 50mg Take 1 [facility] nivers 50 mg 1-05 tablet by ity of tablet 00:00: mouth at [place] 00 bedtime. Medical Branch doxepin 25 2022-0 Yes [id number] 25mg Take 1 [facility] mg capsule 1-05 capsule by ity of 00:00: mouth at [place] 00 bedtime. Medical Branch glipiZIDE 2022-0 Yes [id number] 2.5mg Take 1 [facility] nivers XL 2.5 [...] Dr Rx, ~2 mths ago arformotero Yes [id number] 15ug Use 2 mL [facility] L 15 mcg/2 1-05 as ity of mL 00:00: directed [place] nebulizer 00 in the Medical solution morning Branch and 2 mL in the evening. ipratropium Yes [id number] .5mg Inhale 2.5 [facility] 0.02 % 1-05 mL every 4 ity of nebulizer 00:00: (four) [place] solution 00 hours as Medical needed for Branch Wheezing or Shortness of Breath. albuterol Yes [id number] 2{puff} Inhale 2 [facility] 90 1-05 Puffs ity of mcg/actuati 00:00: every 6 [place] as on inhaler 00 (six) Medical hours as Branch needed for Wheezing or Shortness of Breath. albuterol Yes [id number] 2.5mg Inhale 3 [facility] 2.5 mg /3 1-05 mL every 2 ity of mL (0.083 00:00: (two) [place] %) 00 hours as Medical nebulizer needed for Bran ch solution Shortness of Breath or Wheezing. cloNIDine Yes [id number] .2mg Take 1 [facility] nivers 0.2 mg 1-05 tablet by ity of tablet 00:00: mouth 3 [place] 00 (three) Medical times Branch daily as needed (Uncontrol led Hypertensi on). Take 1 Tab if BP > 150/90 NIFEdipine 2022- Yes [id number] 30mg Take 1 [facility] nivers ER 30 mg 1-05 tablet by ity of tablet 00:00: mouth in [place] 00 the Medical morning. Branch levothyroxi Yes [id number] 150ug Take 1 [facility] ne 150 mcg 1-05 tablet by ity of tablet 00:00: mouth [place] 00 every Medical morning. Branch tamsulosin 0 Yes [id number] .4mg Take 1 [facility] 0.4 mg 24 1-05 9102 capsule by ity of hr capsule 00:00: mouth in [place] as 00 the Medical morning. Branch budesonide Yes [id number] .5mg Inhale 2 [facility] 0.5 mg/2 mL 1-05 mL in the ity of nebulizer 00:00: morning [place] solution 00 and 2 mL Medical in the Branch evening. traZODone 2022-0 Yes [id number] 50mg Take 1 [facility] nivers 50 mg 1-05 tablet by ity of tablet 00:00: mouth at [place] 00 bedtime. Medical Branch doxepin 25 2022-0 Yes [id number] 25mg Take 1 [facility] mg capsule 1-05 capsule by ity of 00:00: mouth at [place] 00 bedtime. Medical Branch glipiZIDE 2022-0 Yes [id number] 2.5mg Take 1 [facility] nivers XL 2.5 [...] Dr Rx, ~2 mths ago arformotero Yes [id number] 15ug Use 2 mL [facility] L 15 mcg/2 1-05 as ity of mL 00:00: directed [place] nebulizer 00 in the Medical solution morning Branch and 2 mL in the evening. ipratropium Yes [id number] .5mg Inhale 2.5 [facility] 0.02 % 1-05 mL every 4 ity of nebulizer 00:00: (four) [place] solution 00 hours as Medical needed for Branch Wheezing or Shortness of Breath. albuterol 0 Yes [id number] 2{puff} Inhale 2 [facility] 90 1-05 Puffs ity of mcg/actuati 00:00: every 6 [place] as on inhaler 00 (six) Medical hours as Branch needed for Wheezing or Shortness of Breath. albuterol 0 Yes [id number] 2.5mg Inhale 3 [facility] 2.5 mg /3 1-05 mL every 2 ity of mL (0.083 00:00: (two) [place] %) 00 hours as Medical nebulizer needed for Bran ch solution Shortness of Breath or Wheezing. cloNIDine 2022-0 Yes [id number] .2mg Take 1 [facility] nivers 0.2 mg 1-05 tablet by ity of tablet 00:00: mouth 3 [place] 00 (three) Medical times Branch daily as needed (Uncontrol led Hypertensi on). Take 1 Tab if BP > 150/90 NIFEdipine Yes [id number] 30mg Take 1 [facility] nivers ER 30 mg 1-05 tablet by ity of tablet 00:00: mouth in [place] 00 the Medical morning. Branch levothyroxi Yes [id number] 150ug Take 1 [facility] ne 150 mcg 1-05 tablet by ity of tablet 00:00: mouth [place] 00 every Medical morning. Branch tamsulosin Yes [id number] .4mg Take 1 [facility] 0.4 mg 24 1-05 9102 capsule by ity of hr capsule 00:00: mouth in [place] as 00 the Medical morning. Branch budesonide Yes [id number] .5mg Inhale 2 [facility] 0.5 mg/2 mL 1-05 mL in the ity of nebulizer 00:00: morning [place] solution 00 and 2 mL Medical in the Branch evening. traZODone Yes [id number] 50mg Take 1 [facility] nivers 50 mg 1-05 tablet by ity of tablet 00:00: mouth at [place] 00 bedtime. Medical Branch doxepin 25 0 Yes [id number] 25mg Take 1 [facility] mg capsule 1-05 capsule by ity of 00:00: mouth at [place] 00 bedtime. Medical Branch glipiZIDE Yes [id number] 2.5mg Take 1 [facility] nivers XL 2.5 mg 1-05 tablet by ity o f 24 hr 00:00: mouth in [place] tablet 00 the Medical morning Branch and 1 tablet in the evening. bumetanide Yes 1mg Take 1 [facility] rs 1 mg tablet 1-05 tablet by ity of 00:00: mouth [place] 00 every Medical morning Branch and evening. Indication s: reports kidney Dr Rx, ~2 mths ago arformotero 2022-0 Yes [id number] 15ug Use 2 mL [facility] L 15 mcg/2 1-05 as ity of mL 00:00: directed [place] nebulizer 00 in the Medical solution morning Branch and 2 mL in the evening. ipratropium 0 Yes [id number] .5mg Inhale 2.5 [facility] 0.02 % 1-05 mL every 4 ity of nebulizer 00:00: (four) [place] solution 00 hours as Medical needed for Branch Wheezing or Shortness of Breath. albuterol Yes [id number] 2{puff} Inhale 2 [facility] 90 1-05 Puffs ity of mcg/actuati 00:00: every 6 [place] as on inhaler 00 (six) Medical hours as Branch needed for Wheezing or Shortness of Breath. albuterol Yes [id number] 2.5mg Inhale 3 [facility] 2.5 mg /3 1-05 mL every 2 ity of mL (0.083 00:00: (two) [place] %) 00 hours as Medical nebulizer needed for Bran ch solution Shortness of Breath or Wheezing. cloNIDine Yes [id number] .2mg Take 1 [facility] nivers 0.2 mg 1-05 tablet by ity of tablet 00:00: mouth 3 [place] 00 (three) Medical times Branch daily as needed (Uncontrol led Hypertensi on). Take 1 Tab if BP > 150/90 NIFEdipine Yes [id number] 30mg Take 1 [facility] nivers ER 30 mg 1-05 tablet by ity of tablet 00:00: mouth in [place] 00 the Medical morning. Branch levothyroxi Yes [id number] 150ug Take 1 [facility] ne 150 mcg 1-05 tablet by ity of tablet 00:00: mouth [place] 00 every Medical morning. Branch tamsulosin Yes [id number] .4mg Take 1 [facility] 0.4 mg 24 1-05 9102 capsule by ity of hr capsule 00:00: mouth in [place] as 00 the Medical morning. Branch budesonide Yes [id number] .5mg Inhale 2 [facility] 0.5 mg/2 mL 1-05 mL in the ity of nebulizer 00:00: morning [place] solution 00 and 2 mL Medical in the Branch evening. traZODone 0 Yes [id number] 50mg Take 1 [facility] nivers 50 mg 1-05 tablet by ity of tablet 00:00: mouth at [place] 00 bedtime. Medical Branch doxepin 25 2022-0 Yes [id number] 25mg Take 1 [facility] mg capsule 1-05 capsule by ity of 00:00: mouth at [place] 00 bedtime. Medical Branch glipiZIDE 2022-0 Yes [id number] 2.5mg Take 1 [facility] nivers XL 2.5 [...] Dr Rx, ~2 mths ago arformotero Yes [id number] 15ug Use 2 mL [facility] L 15 mcg/2 1-05 as ity of mL 00:00: directed [place] nebulizer 00 in the Medical solution morning Branch and 2 mL in the evening. ipratropium Yes [id number] .5mg Inhale 2.5 [facility] 0.02 % 1-05 mL every 4 ity of nebulizer 00:00: (four) [place] solution 00 hours as Medical needed for Branch Wheezing or Shortness of Breath. albuterol Yes [id number] 2{puff} Inhale 2 [facility] 90 1-05 Puffs ity of mcg/actuati 00:00: every 6 [place] as on inhaler 00 (six) Medical hours as Branch needed for Wheezing or Shortness of Breath. albuterol Yes [id number] 2.5mg Inhale 3 [facility] 2.5 mg /3 1-05 mL every 2 ity of mL (0.083 00:00: (two) [place] %) 00 hours as Medical nebulizer needed for Bran ch solution Shortness of Breath or Wheezing. cloNIDine Yes [id number] .2mg Take 1 [facility] nivers 0.2 mg 1-05 tablet by ity of tablet 00:00: mouth 3 [place] 00 (three) Medical times Branch daily as needed (Uncontrol led Hypertensi on). Take 1 Tab if BP > 150/90 NIFEdipine Yes [id number] 30mg Take 1 [facility] nivers ER 30 mg 1-05 tablet by ity of tablet 00:00: mouth in [place] 00 the Medical morning. Branch levothyroxi Yes [id number] 150ug Take 1 [facility] ne 150 mcg 1-05 tablet by ity of tablet 00:00: mouth [place] 00 every Medical morning. Branch tamsulosin Yes [id number] .4mg Take 1 [facility] 0.4 mg 24 1-05 9102 capsule by ity of hr capsule 00:00: mouth in [place] as 00 the Medical morning. Branch budesonide 0 Yes [id number] .5mg Inhale 2 [facility] 0.5 mg/2 mL 1-05 mL in the ity of nebulizer 00:00: morning [place] solution 00 and 2 mL Medical in the Branch evening. traZODone 2022-0 Yes [id number] 50mg Take 1 [facility] nivers 50 mg 1-05 tablet by ity of tablet 00:00: mouth at [place] 00 bedtime. Medical Branch doxepin 25 2022-0 Yes [id number] 25mg Take 1 [facility] mg capsule 1-05 capsule by ity of 00:00: mouth at [place] 00 bedtime. Medical Branch glipiZIDE 0 Yes [id number] 2.5mg Take 1 [facility] nivers XL 2.5 [...] Rx, ~2 mths ago arformotero 0 Yes [id number] 15ug Use 2 mL [facility] L 15 mcg/2 1-05 as ity of mL 00:00: directed [place] nebulizer 00 in the Medical solution morning Branch and 2 mL in the evening. ipratropium 0 Yes [id number] .5mg Inhale 2.5 [facility] 0.02 % 1-05 mL every 4 ity of nebulizer 00:00: (four) [place] solution 00 hours as Medical needed for Branch Wheezing or Shortness of Breath. albuterol 2022-0 Yes [id number] 2{puff} Inhale 2 [facility] 90 1-05 Puffs ity of mcg/actuati 00:00: every 6 [place] as on inhaler 00 (six) Medical hours as Branch needed for Wheezing or Shortness of Breath. albuterol 2022-0 Yes [id number] 2.5mg Inhale 3 [facility] 2.5 mg /3 1-05 mL every 2 ity of mL (0.083 00:00: (two) [place] %) 00 hours as Medical nebulizer needed for Bran ch solution Shortness of Breath or Wheezing. cloNIDine Yes [id number] .2mg Take 1 [facility] nivers 0.2 mg 1-05 tablet by ity of tablet 00:00: mouth 3 [place] 00 (three) Medical times Branch daily as needed (Uncontrol led Hypertensi on). Take 1 Tab if BP > 150/90 NIFEdipine Yes [id number] 30mg Take 1 [facility] nivers ER 30 mg 1-05 tablet by ity of tablet 00:00: mouth in [place] 00 the Medical morning. Branch levothyroxi Yes [id number] 150ug Take 1 [facility] ne 150 mcg 1-05 tablet by ity of tablet 00:00: mouth [place] 00 every Medical morning. Branch tamsulosin Yes [id number] .4mg Take 1 [facility] 0.4 mg 24 1-05 9102 capsule by ity of hr capsule 00:00: mouth in [place] as 00 the Medical morning. Branch budesonide Yes [id number] .5mg Inhale 2 [facility] 0.5 mg/2 mL 1-05 mL in the ity of nebulizer 00:00: morning [place] solution 00 and 2 mL Medical in the Branch evening. traZODone Yes [id number] 50mg Take 1 [facility] nivers 50 mg 1-05 tablet by ity of tablet 00:00: mouth at [place] 00 bedtime. [facility] doxepin 25 Yes [id number] 25mg Take 1 [facility] mg capsule 1-05 capsule by ity of 00:00: mouth at [place] 00 bedtime. [facility] glipiZIDE Yes [id number] 2.5mg Take 1 U nivers XL 2.5 [...] Dr Rx, ~2 mths ago arformotero Yes [id number] 15ug Use 2 mL [facility] L 15 mcg/2 1-05 as ity of mL 00:00: directed [place] nebulizer 00 in the Medical solution morning Branch and 2 mL in the evening. ipratropium Yes [id number] .5mg Inhale 2.5 [facility] 0.02 % 1-05 mL every 4 ity of nebulizer 00:00: (four) [place] solution 00 hours as Medical needed for Branch Wheezing or Shortness of Breath. albuterol Yes [id number] 2{puff} Inhale 2 [facility] 90 1-05 Puffs ity of mcg/actuati 00:00: every 6 [place] as on inhaler 00 (six) Medical hours as Branch needed for Wheezing or Shortness of Breath. albuterol Yes [id number] 2.5mg Inhale 3 [facility] 2.5 mg /3 1-05 mL every 2 ity of mL (0.083 00:00: (two) [place] %) 00 hours as Medical nebulizer needed for Bran ch solution Shortness of Breath or Wheezing. cloNIDine Yes [id number] .2mg Take 1 [facility] nivers 0.2 mg 1-05 tablet by ity of tablet 00:00: mouth 3 [place] 00 (three) Medical times Branch daily as needed (Uncontrol led Hypertensi on). Take 1 Tab if BP > 150/90 NIFEdipine Yes [id number] 30mg Take 1 [facility] nivers ER 30 mg 1-05 tablet by ity of tablet 00:00: mouth in [place] 00 the Medical morning. Branch levothyroxi Yes [id number] 150ug Take 1 [facility] ne 150 mcg 1-05 tablet by ity of tablet 00:00: mouth [place] 00 every Medical morning. Branch tamsulosin Yes [id number] .4mg Take 1 [facility] 0.4 mg 24 1-05 9102 capsule by ity of hr capsule 00:00: mouth in [place] as 00 the Medical morning. Branch budesonide Yes [id number] .5mg Inhale 2 [facility] 0.5 mg/2 mL 1-05 mL in the ity of nebulizer 00:00: morning [place] solution 00 and 2 mL Medical in the Branch evening. traZODone Yes [id number] 50mg Take 1 [facility] nivers 50 mg 1-05 tablet by ity of tablet 00:00: mouth at [place] 00 bedtime. Medical Branch doxepin 25 Yes [id number] 25mg Take 1 [facility] mg capsule 1-05 capsule by ity of 00:00: mouth at [place] 00 bedtime. Medical Branch glipiZIDE Yes [id number] 2.5mg Take 1 [facility] nivers XL 2.5 [...] Dr Rx, ~2 mths ago arformotero Yes [id number] 15ug Use 2 mL [facility] L 15 mcg/2 1-05 as ity of mL 00:00: directed [place] nebulizer 00 in the Medical solution morning Branch and 2 mL in the evening. ipratropium Yes [id number] .5mg Inhale 2.5 [facility] 0.02 % 1-05 mL every 4 ity of nebulizer 00:00: (four) [place] solution 00 hours as Medical needed for Branch Wheezing or Shortness of Breath. albuterol Yes [id number] 2{puff} Inhale 2 [facility] 90 1-05 Puffs ity of mcg/actuati 00:00: every 6 [place] as on inhaler 00 (six) Medical hours as Branch needed for Wheezing or Shortness of Breath. albuterol Yes [id number] 2.5mg Inhale 3 [facility] 2.5 mg /3 1-05 mL every 2 ity of mL (0.083 00:00: (two) [place] %) 00 hours as Medical nebulizer needed for Bran ch solution Shortness of Breath or Wheezing. cloNIDine Yes [id number] .2mg Take 1 [facility] nivers 0.2 mg 1-05 tablet by ity of tablet 00:00: mouth 3 [place] 00 (three) Medical times Branch daily as needed (Uncontrol led Hypertensi on). Take 1 Tab if BP > 150/90 NIFEdipine Yes [id number] 30mg Take 1 [facility] nivers ER 30 mg 1-05 tablet by ity of tablet 00:00: mouth in [place] 00 the Medical morning. Branch levothyroxi Yes [id number] 150ug Take 1 [facility] ne 150 mcg 1-05 tablet by ity of tablet 00:00: mouth [place] 00 every Medical morning. Branch tamsulosin Yes [id number] .4mg Take 1 [facility] 0.4 mg 24 1-05 9102 capsule by ity of hr capsule 00:00: mouth in [place] as 00 the Medical morning. Branch budesonide Yes [id number] .5mg Inhale 2 [facility] 0.5 mg/2 mL 1-05 mL in the ity of nebulizer 00:00: morning [place] solution 00 and 2 mL Medical in the Branch evening. traZODone Yes [id number] 50mg Take 1 [facility] nivers 50 mg 1-05 tablet by ity of tablet 00:00: mouth at [place] 00 bedtime. Medical Branch doxepin 25 Yes [id number] 25mg Take 1 [facility] mg capsule 1-05 capsule by ity of 00:00: mouth at [place] 00 bedtime. Medical Branch glipiZIDE Yes [id number] 2.5mg Take 1 [facility] nivers XL 2.5 [...] Rx, ~2 mths ago arformotero 0 Yes [id number] 15ug Use 2 mL [facility] L 15 mcg/2 1-05 as ity of mL 00:00: directed [place] nebulizer 00 in the Medical solution morning Branch and 2 mL in the evening. ipratropium 0 Yes [id number] .5mg Inhale 2.5 [facility] 0.02 % 1-05 mL every 4 ity of nebulizer 00:00: (four) [place] solution 00 hours as Medical needed for Branch Wheezing or Shortness of Breath. albuterol 0 Yes [id number] 2{puff} Inhale 2 [facility] 90 1-05 Puffs ity of mcg/actuati 00:00: every 6 [place] as on inhaler 00 (six) Medical hours as Branch needed for Wheezing or Shortness of Breath. albuterol Yes [id number] 2.5mg Inhale 3 [facility] 2.5 mg /3 1-05 mL every 2 ity of mL (0.083 00:00: (two) [place] %) 00 hours as Medical nebulizer needed for Bran ch solution Shortness of Breath or Wheezing. cloNIDine Yes [id number] .2mg Take 1 U nivers 0.2 mg 1-05 tablet by ity of tablet 00:00: mouth 3 [place] 00 (three) Medical times Branch daily as needed (Uncontrol led Hypertensi on). Take 1 Tab if BP > 150/90 NIFEdipine 0 Yes [id number] 30mg Take 1 U nivers ER 30 mg 1-05 tablet by ity of tablet 00:00: mouth in [place] 00 the Medical morning. Branch levothyroxi Yes [id number] 150ug Take 1 [facility] ne 150 mcg 1-05 tablet by ity of tablet 00:00: mouth [place] 00 every Medical morning. Branch tamsulosin Yes [id number] .4mg Take 1 [facility] 0.4 mg 24 1-05 9102 capsule by ity of hr capsule 00:00: mouth in [place] as 00 the Medical morning. Branch budesonide Yes [id number] .5mg Inhale 2 [facility] 0.5 mg/2 mL 1-05 mL in the ity of nebulizer 00:00: morning [place] solution 00 and 2 mL Medical in the Branch evening. traZODone 0 Yes [id number] 50mg Take 1 U nivers 50 mg 1-05 tablet by ity of tablet 00:00: mouth at [place] 00 bedtime. Medical Branch doxepin 25 0 Yes [id number] 25mg Take 1 [facility] mg capsule 1-05 capsule by ity of 00:00: mouth at [place] 00 bedtime. Medical Branch glipiZIDE 0 Yes [id number] 2.5mg Take 1 [facility] nivers XL 2.5 mg 1-05 tablet by ity o f 24 hr 00:00: mouth in [place] tablet 00 the Medical morning Branch and 1 tablet in the evening. bumetanide Yes 1mg Take 1 [facility] rs 1 mg tablet 1-05 tablet by ity of 00:00: mouth [place] 00 every Medical morning Branch and evening. Indication s: reports kidney Rx, ~2 mths ago arformotero Yes [id number] 15ug Use 2 mL [facility] L 15 mcg/2 1-05 as ity of mL 00:00: directed [place] nebulizer 00 in the Medical solution morning Branch and 2 mL in the evening. ipratropium Yes [id number] .5mg Inhale 2.5 [facility] 0.02 % 1-05 mL every 4 ity of nebulizer 00:00: (four) [place] solution 00 hours as Medical needed for Branch Wheezing or Shortness of Breath. albuterol Yes [id number] 2{puff} Inhale 2 [facility] 90 1-05 Puffs ity of mcg/actuati 00:00: every 6 [place] as on inhaler 00 (six) Medical hours as Branch needed for Wheezing or Shortness of Breath. albuterol Yes [id number] 2.5mg Inhale 3 [facility] 2.5 mg /3 1-05 mL every 2 ity of mL (0.083 00:00: (two) [place] %) 00 hours as Medical nebulizer needed for Bran ch solution Shortness of Breath or Wheezing. cloNIDine Yes [id number] .2mg Take 1 U nivers 0.2 mg 1-05 tablet by ity of tablet 00:00: mouth 3 [place] 00 (three) Medical times Branch daily as needed (Uncontrol led Hypertensi on). Take 1 Tab if BP > 150/90 NIFEdipine Yes [id number] 30mg Take 1 U nivers ER 30 mg 1-05 tablet by ity of tablet 00:00: mouth in [place] 00 the Medical morning. Branch levothyroxi Yes [id number] 150ug Take 1 [facility] ne 150 mcg 1-05 tablet by ity of tablet 00:00: mouth [place] 00 every Medical morning. Branch tamsulosin Yes [id number] .4mg Take 1 [facility] 0.4 mg 24 1-05 9102 capsule by ity of hr capsule 00:00: mouth in [place] as 00 the Medical morning. Branch budesonide Yes [id number] .5mg Inhale 2 [facility] 0.5 mg/2 mL 1-05 mL in the ity of nebulizer 00:00: morning [place] solution 00 and 2 mL Medical in the Branch evening. traZODone 0 Yes [id number] 50mg Take 1 [facility] nivers 50 mg 1-05 tablet by ity of tablet 00:00: mouth at [place] 00 bedtime. Medical Branch doxepin 25 Yes [id number] 25mg Take 1 [facility] mg capsule 1-05 capsule by ity of 00:00: mouth at [place] 00 bedtime. Medical Branch glipiZIDE Yes [id number] 2.5mg Take 1 U nivers XL 2.5 [...] Dr Rx, ~2 mths ago arformotero Yes [id number] 15ug Use 2 mL [facility] L 15 mcg/2 1-05 as ity of mL 00:00: directed [place] nebulizer 00 in the Medical solution morning Branch and 2 mL in the evening. ipratropium 0 Yes [id number] .5mg Inhale 2.5 [facility] 0.02 % 1-05 mL every 4 ity of nebulizer 00:00: (four) [place] solution 00 hours as Medical needed for Branch Wheezing or Shortness of Breath. albuterol 0 Yes [id number] 2{puff} Inhale 2 [facility] 90 1-05 Puffs ity of mcg/actuati 00:00: every 6 [place] as on inhaler 00 (six) Medical hours as Branch needed for Wheezing or Shortness of Breath. albuterol 0 Yes [id number] 2.5mg Inhale 3 [facility] 2.5 mg /3 1-05 mL every 2 ity of mL (0.083 00:00: (two) [place] %) 00 hours as Medical nebulizer needed for Bran ch solution Shortness of Breath or Wheezing. cloNIDine Yes [id number] .2mg Take 1 [facility] nivers 0.2 mg 1-05 tablet by ity of tablet 00:00: mouth 3 [place] 00 (three) Medical times Branch daily as needed (Uncontrol led Hypertensi on). Take 1 Tab if BP > 150/90 NIFEdipine 0 Yes [id number] 30mg Take 1 U nivers ER 30 mg 1-05 tablet by ity of tablet 00:00: mouth in [place] 00 the Medical morning. Branch levothyroxi Yes [id number] 150ug Take 1 [facility] ne 150 mcg 1-05 tablet by ity of tablet 00:00: mouth [place] 00 every Medical morning. Branch tamsulosin Yes [id number] .4mg Take 1 [facility] 0.4 mg 24 1-05 9102 capsule by ity of hr capsule 00:00: mouth in [place] as 00 the Medical morning. Branch budesonide Yes [id number] .5mg Inhale 2 [facility] 0.5 mg/2 mL 1-05 mL in the ity of nebulizer 00:00: morning [place] solution 00 and 2 mL Medical in the Branch evening. traZODone Yes [id number] 50mg Take 1 [facility] nivers 50 mg 1-05 tablet by ity of tablet 00:00: mouth at [place] 00 bedtime. Medical Branch doxepin 25 Yes [id number] 25mg Take 1 [facility] mg capsule 1-05 capsule by ity of 00:00: mouth at [place] 00 bedtime. Medical Branch glipiZIDE 0 Yes [id number] 2.5mg Take 1 [facility] nivers XL 2.5 [...] Rx, ~2 mths ago arformotero 0 Yes [id number] 15ug Use 2 mL [facility] L 15 mcg/2 1-05 as ity of mL 00:00: directed [place] nebulizer 00 in the Medical solution morning Branch and 2 mL in the evening. ipratropium 0 Yes [id number] .5mg Inhale 2.5 [facility] 0.02 % 1-05 mL every 4 ity of nebulizer 00:00: (four) [place] solution 00 hours as Medical needed for Branch Wheezing or Shortness of Breath. albuterol 0 Yes [id number] 2{puff} Inhale 2 [facility] 90 1-05 Puffs ity of mcg/actuati 00:00: every 6 [place] as on inhaler 00 (six) Medical hours as Branch needed for Wheezing or Shortness of Breath. albuterol 0 Yes [id number] 2.5mg Inhale 3 [facility] 2.5 mg /3 1-05 mL every 2 ity of mL (0.083 00:00: (two) [place] %) 00 hours as Medical nebulizer needed for Bran ch solution Shortness of Breath or Wheezing. cloNIDine Yes [id number] .2mg Take 1 [facility] nivers 0.2 mg 1-05 tablet by ity of tablet 00:00: mouth 3 [place] 00 (three) Medical times Branch daily as needed (Uncontrol led Hypertensi on). Take 1 Tab if BP > 150/90 NIFEdipine 0 Yes [id number] 30mg Take 1 U nivers ER 30 mg 1-05 tablet by ity of tablet 00:00: mouth in [place] 00 the Medical morning. Branch levothyroxi 0 Yes [id number] 150ug Take 1 [facility] ne 150 mcg 1-05 tablet by ity of tablet 00:00: mouth [place] 00 every Medical morning. Branch tamsulosin 0 Yes [id number] .4mg Take 1 [facility] 0.4 mg 24 1-05 9102 capsule by ity of hr capsule 00:00: mouth in [place] as 00 the Medical morning. Branch budesonide 0 Yes [id number] .5mg Inhale 2 [facility] 0.5 mg/2 mL 1-05 mL in the ity of nebulizer 00:00: morning [place] solution 00 and 2 mL Medical in the Branch evening. traZODone 0 Yes [id number] 50mg Take 1 [facility] nivers 50 mg 1-05 tablet by ity of tablet 00:00: mouth at [place] 00 bedtime. Medical Branch doxepin 25 2022-0 Yes [id number] 25mg Take 1 [facility] mg capsule 1-05 capsule by ity of 00:00: mouth at [place] 00 bedtime. Medical Branch glipiZIDE Yes [id number] 2.5mg Take 1 [facility] nivers XL 2.5 mg 1-05 tablet by ity o f 24 hr 00:00: mouth in [place] tablet 00 the Medical morning Branch and 1 tablet in the evening. bumetanide Yes 1mg Take 1 [facility] rs 1 mg tablet 1-05 tablet by ity of 00:00: mouth [place] 00 every Medical morning Branch and evening. Indication s: reports kidney Dr Rx, ~2 mths ago arformotero Yes [id number] 15ug Use 2 mL [facility] L 15 mcg/2 1-05 as ity of mL 00:00: directed [place] nebulizer 00 in the Medical solution morning Branch and 2 mL in the evening. ipratropium Yes [id number] .5mg Inhale 2.5 [facility] 0.02 % 1-05 mL every 4 ity of nebulizer 00:00: (four) [place] solution 00 hours as Medical needed for Branch Wheezing or Shortness of Breath. albuterol Yes [id number] 2{puff} Inhale 2 [facility] 90 1-05 Puffs ity of mcg/actuati 00:00: every 6 [place] as on inhaler 00 (six) Medical hours as Branch needed for Wheezing or Shortness of Breath. albuterol Yes [id number] 2.5mg Inhale 3 [facility] 2.5 mg /3 1-05 mL every 2 ity of mL (0.083 00:00: (two) [place] %) 00 hours as Medical nebulizer needed for Bran ch solution Shortness of Breath or Wheezing. cloNIDine Yes [id number] .2mg Take 1 [facility] nivers 0.2 mg 1-05 tablet by ity of tablet 00:00: mouth 3 [place] 00 (three) Medical times Branch daily as needed (Uncontrol led Hypertensi on). Take 1 Tab if BP > 150/90 NIFEdipine Yes [id number] 30mg Take 1 [facility] nivers ER 30 mg 1-05 tablet by ity of tablet 00:00: mouth in [place] 00 the Medical morning. Branch levothyroxi Yes [id number] 150ug Take 1 [facility] ne 150 mcg 1-05 tablet by ity of tablet 00:00: mouth [place] 00 every Medical morning. Branch tamsulosin Yes [id number] .4mg Take 1 [facility] 0.4 mg 24 1-05 9102 capsule by ity of hr capsule 00:00: mouth in [place] as 00 the Medical morning. Branch budesonide Yes [id number] .5mg Inhale 2 [facility] 0.5 mg/2 mL 1-05 mL in the ity of nebulizer 00:00: morning [place] solution 00 and 2 mL Medical in the Branch evening. traZODone Yes [id number] 50mg Take 1 [facility] nivers 50 mg 1-05 tablet by ity of tablet 00:00: mouth at [place] 00 bedtime. Medical Branch doxepin 25 0 Yes [id number] 25mg Take 1 [facility] mg capsule 1-05 capsule by ity of 00:00: mouth at [place] 00 bedtime. Medical Branch glipiZIDE Yes [id number] 2.5mg Take 1 [facility] nivers XL 2.5 [...] Rx, ~2 mths ago arformotero 0 Yes [id number] 15ug Use 2 mL [facility] L 15 mcg/2 1-05 as ity of mL 00:00: directed [place] nebulizer 00 in the Medical solution morning Branch and 2 mL in the evening. ipratropium 0 Yes [id number] .5mg Inhale 2.5 [facility] 0.02 % 1-05 mL every 4 ity of nebulizer 00:00: (four) [place] solution 00 hours as Medical needed for Branch Wheezing or Shortness of Breath. albuterol 0 Yes [id number] 2{puff} Inhale 2 [facility] 90 1-05 Puffs ity of mcg/actuati 00:00: every 6 [place] as on inhaler 00 (six) Medical hours as Branch needed for Wheezing or Shortness of Breath. albuterol 0 Yes [id number] 2.5mg Inhale 3 [facility] 2.5 mg /3 1-05 mL every 2 ity of mL (0.083 00:00: (two) [place] %) 00 hours as Medical nebulizer needed for Bran ch solution Shortness of Breath or Wheezing. cloNIDine 0 Yes [id number] .2mg Take 1 [facility] nivers 0.2 mg 1-05 tablet by ity of tablet 00:00: mouth 3 [place] 00 (three) Medical times Branch daily as needed (Uncontrol led Hypertensi on). Take 1 Tab if BP > 150/90 NIFEdipine 2022-0 Yes [id number] 30mg Take 1 U nivers ER 30 mg 1-05 tablet by ity of tablet 00:00: mouth in [place] 00 the Medical morning. Branch levothyroxi 0 Yes [id number] 150ug Take 1 [facility] ne 150 mcg 1-05 tablet by ity of tablet 00:00: mouth [place] 00 every Medical morning. Branch tamsulosin Yes [id number] .4mg Take 1 [facility] 0.4 mg 24 1-05 9102 capsule by ity of hr capsule 00:00: mouth in [place] as 00 the Medical morning. Branch budesonide Yes [id number] .5mg Inhale 2 [facility] 0.5 mg/2 mL 1-05 mL in the ity of nebulizer 00:00: morning [place] solution 00 and 2 mL Medical in the Branch evening. traZODone 0 Yes [id number] 50mg Take 1 [facility] nivers 50 mg 1-05 tablet by ity of tablet 00:00: mouth at [place] 00 bedtime. Medical Branch doxepin 25 2022-0 Yes [id number] 25mg Take 1 [facility] mg capsule 1-05 capsule by ity of 00:00: mouth at [place] 00 bedtime. Medical Branch glipiZIDE 0 Yes [id number] 2.5mg Take 1 U nivers XL 2.5 [...] Dr Rx, ~2 mths ago arformotero Yes [id number] 15ug Use 2 mL [facility] L 15 mcg/2 1-05 as ity of mL 00:00: directed [place] nebulizer 00 in the Medical solution morning Branch and 2 mL in the evening. ipratropium Yes [id number] .5mg Inhale 2.5 [facility] 0.02 % 1-05 mL every 4 ity of nebulizer 00:00: (four) [place] solution 00 hours as Medical needed for Branch Wheezing or Shortness of Breath. albuterol Yes [id number] 2{puff} Inhale 2 [facility] 90 1-05 Puffs ity of mcg/actuati 00:00: every 6 [place] as on inhaler 00 (six) Medical hours as Branch needed for Wheezing or Shortness of Breath. albuterol Yes [id number] 2.5mg Inhale 3 [facility] 2.5 mg /3 1-05 mL every 2 ity of mL (0.083 00:00: (two) [place] %) 00 hours as Medical nebulizer needed for Bran ch solution Shortness of Breath or Wheezing. cloNIDine Yes [id number] .2mg Take 1 [facility] nivers 0.2 mg 1-05 tablet by ity of tablet 00:00: mouth 3 [place] 00 (three) Medical times Branch daily as needed (Uncontrol led Hypertensi on). Take 1 Tab if BP > 150/90 NIFEdipine Yes [id number] 30mg Take 1 [facility] nivers ER 30 mg 1-05 tablet by ity of tablet 00:00: mouth in [place] 00 the Medical morning. Branch levothyroxi Yes [id number] 150ug Take 1 [facility] ne 150 mcg 1-05 tablet by ity of tablet 00:00: mouth [place] 00 every Medical morning. Branch tamsulosin Yes [id number] .4mg Take 1 [facility] 0.4 mg 24 1-05 9102 capsule by ity of hr capsule 00:00: mouth in [place] as 00 the Medical morning. Branch budesonide Yes [id number] .5mg Inhale 2 [facility] 0.5 mg/2 mL 1-05 mL in the ity of nebulizer 00:00: morning [place] solution 00 and 2 mL Medical in the Branch evening. traZODone 0 Yes [id number] 50mg Take 1 [facility] nivers 50 mg 1-05 tablet by ity of tablet 00:00: mouth at [place] 00 bedtime. Medical Branch doxepin 25 0 Yes [id number] 25mg Take 1 [facility] mg capsule 1-05 capsule by ity of 00:00: mouth at [place] 00 bedtime. Medical Branch glipiZIDE Yes [id number] 2.5mg Take 1 [facility] nivers XL 2.5 [...] Dr Rx, ~2 mths ago arformotero Yes [id number] 15ug Use 2 mL [facility] L 15 mcg/2 1-05 as ity of mL 00:00: directed [place] nebulizer 00 in the Medical solution morning Branch and 2 mL in the evening. ipratropium Yes [id number] .5mg Inhale 2.5 [facility] 0.02 % 1-05 mL every 4 ity of nebulizer 00:00: (four) [place] solution 00 hours as Medical needed for Branch Wheezing or Shortness of Breath. albuterol Yes [id number] 2{puff} Inhale 2 [facility] 90 1-05 Puffs ity of mcg/actuati 00:00: every 6 [place] as on inhaler 00 (six) Medical hours as Branch needed for Wheezing or Shortness of Breath. albuterol Yes [id number] 2.5mg Inhale 3 [facility] 2.5 mg /3 1-05 mL every 2 ity of mL (0.083 00:00: (two) [place] %) 00 hours as Medical nebulizer needed for Bran ch solution Shortness of Breath or Wheezing. cloNIDine Yes [id number] .2mg Take 1 [facility] nivers 0.2 mg 1-05 tablet by ity of tablet 00:00: mouth 3 [place] 00 (three) Medical times Branch daily as needed (Uncontrol led Hypertensi on). Take 1 Tab if BP > 150/90 NIFEdipine Yes [id number] 30mg Take 1 [facility] nivers ER 30 mg 1-05 tablet by ity of tablet 00:00: mouth in [place] 00 the Medical morning. Branch ergocalcife 2021-03 Yes [id number] Take 1 [facility] rol, 2-14 capsule by ity of vitamin d2, 00:00: mouth [place] 1,250 mcg 00 weekly. Medical (50,000 Branch unit) capsule doxepin 25 2021-03 Yes [id number] 25mg Take 1 [facility] mg capsule 2-14 capsule by ity of 00:00: mouth at [place] 00 bedtime. Medical Branch hydrOXYzine 2021-03 Yes [id number] 25mg Take 1 [facility] 25 mg 2-14 capsule by ity of capsule 00:00: mouth 3 [place] 00 (three) Medical times Branch daily as needed for Itching. ergocalcife 2021-03 Yes [id number] Take 1 [facility] rol, 2-14 capsule by ity of vitamin d2, 00:00: mouth [place] 1,250 mcg 00 weekly. Medical (50,000 Branch unit) capsule doxepin 25 2021-03 Yes [id number] 25mg Take 1 [facility] mg capsule 2-14 capsule by ity of 00:00: mouth at [place] 00 bedtime. Medical Branch hydrOXYzine 2021-03 Yes [id number] 25mg Take 1 [facility] 25 mg 2-14 capsule by ity of capsule 00:00: mouth 3 [place] 00 (three) Medical times Branch daily as needed for Itching. ergocalcife 2021-03 Yes [id number] Take 1 [facility] rol, 2-14 capsule by ity of vitamin d2, 00:00: mouth [place] 1,250 mcg 00 weekly. Medical (50,000 Branch unit) capsule doxepin 25 2021-03 Yes [id number] 25mg Take 1 [facility] mg capsule 2-14 capsule by ity of 00:00: mouth at [place] 00 bedtime. Medical Branch hydrOXYzine 2021-03 Yes [id number] 25mg Take 1 [facility] 25 mg 2-14 capsule by ity of capsule 00:00: mouth 3 [place] 00 (three) Medical times Branch daily as needed for Itching. ergocalcife 2021-03 Yes [id number] Take 1 [facility] rol, 2-14 capsule by ity of vitamin d2, 00:00: mouth [place] 1,250 mcg 00 weekly. Medical (50,000 Branch unit) capsule doxepin 25 2021-03 Yes [id number] 25mg Take 1 [facility] mg capsule 2-14 capsule by ity of 00:00: mouth at [place] 00 bedtime. Medical Branch hydrOXYzine 2021-03 Yes [id number] 25mg Take 1 [facility] 25 mg 2-14 capsule by ity of capsule 00:00: mouth 3 [place] 00 (three) Medical times Branch daily as needed for Itching. ergocalcife 2021-03 Yes [id number] Take 1 [facility] rol, 2-14 capsule by ity of vitamin d2, 00:00: mouth [place] 1,250 mcg 00 weekly. Medical (50,000 Branch unit) capsule hydrOXYzine 2021-03 Yes [id number] 25mg Take 1 [facility] 25 mg 2-14 capsule by ity of capsule 00:00: mouth 3 [place] 00 (three) Medical times Branch daily as needed for Itching. ergocalcife 2021-03 Yes [id number] Take 1 [facility] rol, 2-14 capsule by ity of vitamin d2, 00:00: mouth [place] 1,250 mcg 00 weekly. Medical (50,000 Branch unit) capsule hydrOXYzine 2021-03 Yes [id number] 25mg Take 1 [facility] 25 mg 2-14 capsule by ity of capsule 00:00: mouth 3 [place] 00 (three) Medical times Branch daily as needed for Itching. ergocalcife 2021-03 Yes [id number] Take 1 [facility] rol, 2-14 capsule by ity of vitamin d2, 00:00: mouth [place] 1,250 mcg 00 weekly. Medical (50,000 Branch unit) capsule hydrOXYzine 2021-03 Yes [id number] 25mg Take 1 [facility] 25 mg 2-14 capsule by ity of capsule 00:00: mouth 3 [place] 00 (three) Medical times Branch daily as needed for Itching. ergocalcife 2021-03 Yes [id number] Take 1 [facility] rol, 2-14 capsule by ity of vitamin d2, 00:00: mouth [place] 1,250 mcg 00 weekly. Medical (50,000 Branch unit) capsule hydrOXYzine 2021-03 Yes [id number] 25mg Take 1 [facility] 25 mg 2-14 capsule by ity of capsule 00:00: mouth 3 [place] 00 (three) Medical times Branch daily as needed for Itching. ergocalcife 2021-03 Yes [id number] Take 1 [facility] rol, 2-14 capsule by ity of vitamin d2, 00:00: mouth [place] 1,250 mcg 00 weekly. Medical (50,000 Branch unit) capsule hydrOXYzine 2021-03 Yes [id number] 25mg Take 1 [facility] 25 mg 2-14 capsule by ity of capsule 00:00: mouth 3 [place] 00 (three) Medical times Branch daily as needed for Itching. ergocalcife 2021-03 Yes [id number] Take 1 [facility] rol, 2-14 capsule by ity of vitamin d2, 00:00: mouth [place] 1,250 mcg 00 weekly. Medical (50,000 Branch unit) capsule hydrOXYzine 2021-03 Yes [id number] 25mg Take 1 [facility] 25 mg 2-14 capsule by ity of capsule 00:00: mouth 3 [place] 00 (three) Medical times Branch daily as needed for Itching. ergocalcife 2021-03 Yes [id number] Take 1 [facility] rol, 2-14 capsule by ity of vitamin d2, 00:00: mouth [place] 1,250 mcg 00 weekly. Medical (50,000 Branch unit) capsule hydrOXYzine 2021-03 Yes [id number] 25mg Take 1 [facility] 25 mg 2-14 capsule by ity of capsule 00:00: mouth 3 [place] 00 (three) Medical times Branch daily as needed for Itching. ergocalcife 2021-03 Yes [id number] Take 1 [facility] rol, 2-14 capsule by ity of vitamin d2, 00:00: mouth [place] 1,250 mcg 00 weekly. Medical (50,000 Branch unit) capsule hydrOXYzine 2021-03 Yes [id number] 25mg Take 1 [facility] 25 mg 2-14 capsule by ity of capsule 00:00: mouth 3 [place] 00 (three) Medical times Branch daily as needed for Itching. ergocalcife 2021-03 Yes [id number] Take 1 [facility] rol, 2-14 capsule by ity of vitamin d2, 00:00: mouth [place] 1,250 mcg 00 weekly. Medical (50,000 Branch unit) capsule hydrOXYzine 2021-03 Yes [id number] 25mg Take 1 [facility] 25 mg 2-14 capsule by ity of capsule 00:00: mouth 3 [place] 00 (three) Medical times Branch daily as needed for Itching. ergocalcife 2021-03 Yes [id number] Take 1 [facility] rol, 2-14 capsule by ity of vitamin d2, 00:00: mouth [place] 1,250 mcg 00 weekly. Medical (50,000 Branch unit) capsule hydrOXYzine 2021-03 Yes [id number] 25mg Take 1 [facility] 25 mg 2-14 capsule by ity of capsule 00:00: mouth 3 [place] 00 (three) Medical times Branch daily as needed for Itching. ergocalcife 2021-03 Yes [id number] Take 1 [facility] rol, 2-14 capsule by ity of vitamin d2, 00:00: mouth [place] 1,250 mcg 00 weekly. Medical (50,000 Branch unit) capsule hydrOXYzine 2021-03 Yes [id number] 25mg Take 1 [facility] 25 mg 2-14 capsule by ity of capsule 00:00: mouth 3 [place] 00 (three) Medical times Branch daily as needed for Itching. ergocalcife 2021-03 Yes [id number] Take 1 [facility] rol, 2-14 capsule by ity of vitamin d2, 00:00: mouth [place] 1,250 mcg 00 weekly. Medical (50,000 Branch unit) capsule hydrOXYzine 2021-03 Yes [id number] 25mg Take 1 [facility] 25 mg 2-14 capsule by ity of capsule 00:00: mouth 3 [place] 00 (three) Medical times Branch daily as needed for Itching. ergocalcife 2021-03 Yes [id number] Take 1 [facility] rol, 2-14 capsule by ity of vitamin d2, 00:00: mouth [place] 1,250 mcg 00 weekly. Medical (50,000 Branch unit) capsule hydrOXYzine 2021-03 Yes [id number] 25mg Take 1 [facility] 25 mg 2-14 capsule by ity of capsule 00:00: mouth 3 [place] 00 (three) Medical times Branch daily as needed for Itching. ergocalcife 2021-03 Yes [id number] Take 1 [facility] rol, 2-14 capsule by ity of vitamin d2, 00:00: mouth [place] 1,250 mcg 00 weekly. Medical (50,000 Branch unit) capsule hydrOXYzine 2021-03 Yes [id number] 25mg Take 1 [facility] 25 mg 2-14 capsule by ity of capsule 00:00: mouth 3 [place] 00 (three) Medical times Branch daily as needed for Itching. ergocalcife 2021-03 Yes [id number] Take 1 [facility] rol, 2-14 capsule by ity of vitamin d2, 00:00: mouth [place] 1,250 mcg 00 weekly. Medical (50,000 Branch unit) capsule hydrOXYzine 2021-03 Yes [id number] 25mg Take 1 [facility] 25 mg 2-14 capsule by ity of capsule 00:00: mouth 3 [place] 00 (three) Medical times Branch daily as needed for Itching. ergocalcife 2021-03 Yes [id number] Take 1 [facility] rol, 2-14 capsule by ity of vitamin d2, 00:00: mouth [place] 1,250 mcg 00 weekly. Medical (50,000 Branch unit) capsule hydrOXYzine 2021-03 Yes [id number] 25mg Take 1 [facility] 25 mg 2-14 capsule by ity of capsule 00:00: mouth 3 [place] 00 (three) Medical times Branch daily as needed for Itching. ergocalcife 2021-03 Yes [id number] Take 1 [facility] rol, 2-14 capsule by ity of vitamin d2, 00:00: mouth [place] 1,250 mcg 00 weekly. Medical (50,000 Branch unit) capsule hydrOXYzine 2021-03 Yes [id number] 25mg Take 1 [facility] 25 mg 2-14 capsule by ity of capsule 00:00: mouth 3 [place] 00 (three) Medical times Branch daily as needed for Itching. ergocalcife 2021-03 Yes [id number] Take 1 [facility] rol, 2-14 capsule by ity of vitamin d2, 00:00: mouth [place] 1,250 mcg 00 weekly. Medical (50,000 Branch unit) capsule hydrOXYzine 2021-03 Yes [id number] 25mg Take 1 [facility] 25 mg 2-14 capsule by ity of capsule 00:00: mouth 3 [place] 00 (three) Medical times Branch daily as needed for Itching. ergocalcife 2021-03 Yes [id number] Take 1 [facility] rol, 2-14 capsule by ity of vitamin d2, 00:00: mouth [place] 1,250 mcg 00 weekly. Medical (50,000 Branch unit) capsule hydrOXYzine 2021-03 Yes [id number] 25mg Take 1 [facility] 25 mg 2-14 capsule by ity of capsule 00:00: mouth 3 [place] 00 (three) Medical times Branch daily as needed for Itching. ergocalcife 2021-03 Yes [id number] Take 1 [facility] rol, 2-14 capsule by ity of vitamin d2, 00:00: mouth [place] 1,250 mcg 00 weekly. Medical (50,000 Branch unit) capsule hydrOXYzine 2021-03 Yes [id number] 25mg Take 1 [facility] 25 mg 2-14 capsule by ity of capsule 00:00: mouth 3 [place] 00 (three) Medical times Branch daily as needed for Itching. ergocalcife 2021-03 Yes [id number] Take 1 [facility] rol, 2-14 capsule by ity of vitamin d2, 00:00: mouth [place] 1,250 mcg 00 weekly. Medical (50,000 Branch unit) capsule hydrOXYzine 2021-03 Yes [id number] 25mg Take 1 [facility] 25 mg 2-14 capsule by [facility] of capsule 00:00: mouth 3 [place] 00 (three) Medical times Branch daily as needed for Itching. ergocalcife 2021-03 Yes [id number] Take 1 [facility] rol, 2-14 capsule by ity of vitamin d2, 00:00: mouth [place] 1,250 mcg 00 weekly. Medical (50,000 Branch unit) capsule hydrOXYzine 2021-03 Yes [id number] 25mg Take 1 [facility] 25 mg 2-14 capsule by ity of capsule 00:00: mouth 3 [place] 00 (three) Medical times Branch daily as needed for Itching. ergocalcife 2021-03 Yes [id number] Take 1 [facility] rol, 2-14 capsule by ity of vitamin d2, 00:00: mouth [place] 1,250 mcg 00 weekly. Medical (50,000 Branch unit) capsule hydrOXYzine 2021-03 Yes [id number] 25mg Take 1 [facility] 25 mg 2-14 capsule by ity of capsule 00:00: mouth 3 [place] 00 (three) Medical times Branch daily as needed for Itching. ergocalcife 2021-03 Yes [id number] Take 1 [facility] rol, 2-14 capsule by ity of vitamin d2, 00:00: mouth [place] 1,250 mcg 00 weekly. Medical (50,000 Branch unit) capsule hydrOXYzine 2021-03 Yes [id number] 25mg Take 1 [facility] 25 mg 2-14 capsule by ity of capsule 00:00: mouth 3 [place] 00 (three) Medical times Branch daily as needed for Itching. ergocalcife 2021-03 Yes [id number] Take 1 [facility] rol, 2-14 capsule by ity of vitamin d2, 00:00: mouth [place] 1,250 mcg 00 weekly. Medical (50,000 Branch unit) capsule hydrOXYzine 2021-03 Yes [id number] 25mg Take 1 [facility] 25 mg 2-14 capsule by ity of capsule 00:00: mouth 3 [place] 00 (three) Medical times Branch daily as needed for Itching. ergocalcife 2021-03 Yes [id number] Take 1 [facility] rol, 2-14 capsule by ity of vitamin d2, 00:00: mouth [place] 1,250 mcg 00 weekly. Medical (50,000 Branch unit) capsule hydrOXYzine 2021-03 Yes [id number] 25mg Take 1 [facility] 25 mg 2-14 capsule by ity of capsule 00:00: mouth 3 (three) Medical times Branch daily as needed for Itching. hydrOXYzine 2021-03 Yes [id number] 25mg Take 1 [facility] 25 mg 2-14 capsule by ity of capsule 00:00: mouth 3 00 (three) Medical times Branch daily as needed for Itching. hydrOXYzine 2021-03 Yes [id number] 25mg Take 1 [facility] 25 mg 2-14 capsule by ity of capsule 00:00: mouth 3 [place] (three) Medical times Branch daily as needed for Itching. hydrOXYzine 2021-03 Yes [id number] 25mg Take 1 [facility] 25 mg 2-14 capsule by ity of capsule 00:00: mouth 3 [place] 00 (three) Medical times Branch daily as needed for Itching. hydrOXYzine 2021-03 Yes [id number] 25mg Take 1 [facility] 25 mg 2-14 capsule by ity of capsule 00:00: mouth 3 [place] 00 (three) Medical times Branch daily as needed for Itching. ergocalcife 2021-03 2023- No [id number] Take 1 [facility] rol, 2-14 04-03 capsule by ity of vitamin d2, 00:00: 00:00 mouth [place] 1,250 mcg 00 :00 weekly. Medical (50,000 Branch unit) capsule doxepin 2021-03- No [id number] 25mg Take 1 [facility] mg capsule 04-17 capsule by it y of 00:00: 00:00 mouth at [place] 00 :00 bedtime. Medical Branch doxepin 2021-03- No [id number] 25mg Take 1 [facility] mg capsule 04-17 capsule by it y of 00:00: 00:00 mouth at [place] 00 :00 bedtime. Medical Branch doxepin 2021-03- No [id number] 25mg Take 1 [facility] mg capsule 04-17 capsule by it y of 00:00: 00:00 mouth at [place] 00 :00 bedtime. Medical Branch doxepin 2021-03- No [id number] 25mg Take 1 [facility] mg capsule 04-17 capsule by it y of 00:00: 00:00 mouth at [place] 00 :00 bedtime. Medical Branch benzonatate 2021-03 Yes [id number] 100mg Take 1 [facility] (TESSALON 2-13 capsule by ity of PERLES) 100 00:00: mouth [place] mg capsule 00 every 8 Medica l (eight) Branch hours as needed for Cough. benzonatate 2021-03 Yes [id number] 100mg Take 1 [facility] (TESSALON 2-13 capsule by ity of PERLES) 100 00:00: mouth [place] mg capsule 00 every 8 Medica l (eight) Branch hours as needed for Cough. benzonatate 2021-03 Yes [id number] 100mg Take 1 [facility] (TESSALON 2-13 capsule by ity of PERLES) 100 00:00: mouth [place] mg capsule 00 every 8 Medica l (eight) Branch hours as needed for Cough. benzonatate 2021-03 Yes [id number] 100mg Take 1 [facility] (TESSALON 2-13 capsule by ity of PERLES) 100 00:00: mouth [place] mg capsule 00 every 8 Medica l (eight) Branch hours as needed for Cough. benzonatate 2021-03 Yes [id number] 100mg Take 1 [facility] (TESSALON 2-13 capsule by ity of PERLES) 100 00:00: mouth [place] mg capsule 00 every 8 Medica l (eight) Branch hours as needed for Cough. benzonatate 2021-03 Yes [id number] 100mg Take 1 [facility] (TESSALON 2-13 capsule by itrohan of BRAD) 100 00:00: mouth [place] mg capsule 00 every 8 Medica l (eight) Branch hours as needed for Cough. benzonatate 2021-03 Yes [id number] 100mg Take 1 [facility] (TESSALON 2-13 capsule by itrohan of BRAD) 100 00:00: mouth [place] mg capsule 00 every 8 Medica l (eight) Branch hours as needed for Cough. benzonatate 2021-03 Yes [id number] 100mg Take 1 [facility] (TESSALON 2-13 capsule by itrohan of BRAD) 100 00:00: mouth [place] mg capsule 00 every 8 Medica l (eight) Branch hours as needed for Cough. benzonatate 2021-03- No [id number] 100mg Take 1 [facility] (TESSALON 2-13 -08 capsule by itrohan of BRAD) 100 00:00: 00:00 mouth [place] mg capsule 00 :00 every 8 Medica l (eight) Branch hours as needed for Cough. benzonatate 2021-03- No [id number] 100mg Take 1 [facility] (TESSALON 2-13 -08 capsule by itrohan of BRAD) 100 00:00: 00:00 mouth [place] mg capsule 00 :00 every 8 Medica l (eight) Branch hours as needed for Cough. benzonatate 2021-03- No [id number] 100mg Take 1 [facility] (TESSALON 2-13 -08 [...] Indication s: acute pain, chronic pain acetaminoph 2022-1 Yes [id number] 1{tbl} Take 1 Un renetta [...] acute pain, chronic pain benzonatate 2021-03 Yes [id number] 100mg Take 1 [facility] (TESSALON 1-25 capsule by ity of PERLES) 100 00:00: mouth [place] mg capsule 00 every 8 Medica l (eight) Branch hours as needed for Cough. benzonatate 2021-03 Yes [id number] 100mg Take 1 [facility] (TESSALON 1-25 capsule by ity of PERLES) 100 00:00: mouth [place] mg capsule 00 every 8 Medica l (eight) Branch hours as needed for Cough. benzonatate 2021-03 Yes [id number] 100mg Take 1 [facility] (TESSALON 1-25 capsule by ity of PERLES) 100 00:00: mouth [place] mg capsule 00 every 8 Medica l (eight) Branch hours as needed for Cough. benzonatate 2021-03 Yes [id number] 100mg Take 1 [facility] (TESSALON 1-25 capsule by ity of PERLES) 100 00:00: mouth [place] mg capsule 00 every 8 Medica l (eight) Branch hours as needed for Cough. benzonatate 2021-03 Yes [id number] 100mg Take 1 [facility] (TESSALON 1-25 capsule by ity of PERLES) 100 00:00: mouth [place] mg capsule 00 every 8 Medica l (eight) Branch hours as needed for Cough. benzonatate 2021-03- No [id number] 100mg Take 1 [facility] (TESSALON 1-25 12-12 capsule by ity of PERLES) 100 00:00: 00:00 mouth [place] mg capsule 00 :00 every 8 Medica l (eight) Branch hours as needed for Cough. hydrOXYzine 2021-03 Yes [id number] 25mg Take 1 [facility] 25 mg 1-17 capsule by ity of capsule 00:00: mouth 3 (three) Medical times Branch daily as needed for Itching. hydrOXYzine 2021-03 Yes [id number] 25mg Take 1 [facility] 25 mg 1-17 capsule by ity of capsule 00:00: mouth 3 (three) Medical times Branch daily as needed for Itching. hydrOXYzine 2021-03 Yes [id number] 25mg Take 1 [facility] 25 mg 1-17 capsule by ity of capsule 00:00: mouth 3 (three) Medical times Branch daily as needed for Itching. hydrOXYzine 2021-03 Yes [id number] 25mg Take 1 [facility] 25 mg 1-17 capsule by ity of capsule 00:00: mouth 3 (three) Medical times Branch daily as needed for Itching. hydrOXYzine 2021-03 Yes [id number] 25mg Take 1 [facility] 25 mg 1-17 capsule by ity of capsule 00:00: mouth 3 (three) Medical times Branch daily as needed for Itching. hydrOXYzine 2021-03 Yes [id number] 25mg Take 1 [facility] 25 mg 1-17 capsule by ity of capsule 00:00: mouth 3 [place] (three) Medical times Branch daily as needed for Itching. hydrOXYzine 2021-03 Yes [id number] 25mg Take 1 [facility] 25 mg 1-17 capsule by ity of capsule 00:00: mouth 3 (three) Medical times Branch daily as needed for Itching. hydrOXYzine 2021-03 Yes [id number] 25mg Take 1 [facility] 25 mg 1-17 capsule by ity of capsule 00:00: mouth 3 (three) Medical times Branch daily as needed for Itching. hydrOXYzine 2021-03- No [id number] 25mg Take 1 [facility] 25 mg 1-17 12-12 capsule by ity of capsule 00:00: 00:00 mouth 3 [place] 00 :00 (three) Medical times Branch daily as needed for Itching. pravastatin 2021-03 Yes [id number] 40mg Take 1 [facility] 40 mg 1-11 tablet by ity of tablet 00:00: mouth at [place] 00 bedtime. Medical Branch pravastatin 2021-03 Yes [id number] 40mg Take 1 [facility] 40 mg 1-11 tablet by ity of tablet 00:00: mouth at [place] 00 bedtime. Medical Branch pravastatin 2021-03 Yes [id number] 40mg Take 1 [facility] 40 mg 1-11 tablet by ity of tablet 00:00: mouth at [place] 00 bedtime. Medical Branch pravastatin 2021-03 Yes [id number] 40mg Take 1 [facility] 40 mg 1-11 tablet by ity of tablet 00:00: mouth at [place] 00 bedtime. Medical Branch pravastatin 2021-03 Yes [id number] 40mg Take 1 [facility] 40 mg 1-11 tablet by ity of tablet 00:00: mouth at [place] [address] bedtime. Medical Branch pravastatin 2021-03 Yes [id number] 40mg Take 1 [facility] 40 mg 1-11 tablet by ity of tablet 00:00: mouth at [place] [address] bedtime. Medical Branch pravastatin 2021-03 Yes [id number] 40mg Take 1 [facility] 40 mg 1-11 tablet by ity of tablet 00:00: mouth at [place] [address] bedtime. Medical Branch pravastatin 2021-03 Yes [id number] 40mg Take 1 [facility] 40 mg 1-11 tablet by ity of tablet 00:00: mouth at [place] [address] bedtime. Medical Branch pravastatin 2021-03 Yes [id number] 40mg Take 1 [facility] 40 mg 1-11 tablet by ity of tablet 00:00: mouth at [place] [address] bedtime. Medical Branch pravastatin 2021-03 Yes [id number] 40mg Take 1 [facility] 40 mg 1-11 tablet by ity of tablet 00:00: mouth at [place] 00 bedtime. Medical Branch pravastatin 2021-03 Yes [id number] 40mg Take 1 [facility] 40 mg 1-11 tablet by ity of tablet 00:00: mouth at [place] [address] bedtime. Medical Branch pravastatin 2021-03 Yes [id number] 40mg Take 1 [facility] 40 mg 1-11 tablet by ity of tablet 00:00: mouth at [place] [address] bedtime. Medical Branch pravastatin 2021-03 Yes [id number] 40mg Take 1 [facility] 40 mg 1-11 tablet by ity of tablet 00:00: mouth at [place] [address] bedtime. Medical Branch pravastatin 2021-03 Yes [id number] 40mg Take 1 [facility] 40 mg 1-11 tablet by ity of tablet 00:00: mouth at [place] [address] bedtime. Medical Branch pravastatin 2021-03 Yes [id number] 40mg Take 1 [facility] 40 mg 1-11 tablet by ity of tablet 00:00: mouth at [place] [address] bedtime. Medical Branch pravastatin 2021-03 Yes [id number] 40mg Take 1 [facility] 40 mg 1-11 tablet by ity of tablet 00:00: mouth at [place] [address] bedtime. Medical Branch pravastatin 2021-03 Yes [id number] 40mg Take 1 [facility] 40 mg 1-11 tablet by ity of tablet 00:00: mouth at [place] [address] bedtime. Medical Branch pravastatin 2021-03 Yes [id number] 40mg Take 1 [facility] 40 mg 1-11 tablet by ity of tablet 00:00: mouth at [place] [address] bedtime. Medical Branch pravastatin 2021-03 Yes [id number] 40mg Take 1 [facility] 40 mg 1-11 tablet by ity of tablet 00:00: mouth at [place] [address] bedtime. Medical Branch pravastatin 2021-03 Yes [id number] 40mg Take 1 [facility] 40 mg 1-11 tablet by ity of tablet 00:00: mouth at [place] [address] bedtime. Medical Branch pravastatin 2021-03 Yes [id number] 40mg Take 1 [facility] 40 mg 1-11 tablet by ity of tablet 00:00: mouth at [place] [address] bedtime. Medical Branch pravastatin 2021-03 Yes [id number] 40mg Take 1 [facility] 40 mg 1-11 tablet by ity of tablet 00:00: mouth at [place] [address] bedtime. Medical Branch pravastatin 2021-03 Yes [id number] 40mg Take 1 [facility] 40 mg 1-11 tablet by ity of tablet 00:00: mouth at [place] [address] bedtime. Medical Branch pravastatin 2021-03 Yes [id number] 40mg Take 1 [facility] 40 mg 1-11 tablet by ity of tablet 00:00: mouth at [place] [address] bedtime. Medical Branch pravastatin 2021-03 Yes [id number] 40mg Take 1 [facility] 40 mg 1-11 tablet by ity of tablet 00:00: mouth at [place] [address] bedtime. Medical Branch pravastatin 2021-03 Yes [id number] 40mg Take 1 [facility] 40 mg 1-11 tablet by ity of tablet 00:00: mouth at [place] [address] bedtime. Medical Branch pravastatin 2021-03 Yes [id number] 40mg Take 1 [facility] 40 mg 1-11 tablet by ity of tablet 00:00: mouth at [place] [address] bedtime. Medical Branch pravastatin 2021-03 Yes [id number] 40mg Take 1 [facility] 40 mg 1-11 tablet by ity of tablet 00:00: mouth at [place] [address] bedtime. Medical Branch pravastatin 2021-03 Yes [id number] 40mg Take 1 [facility] 40 mg 1-11 tablet by ity of tablet 00:00: mouth at [place] [address] bedtime. Medical Branch pravastatin 2021-03 Yes [id number] 40mg Take 1 [facility] 40 mg 1-11 tablet by ity of tablet 00:00: mouth at [place] [address] bedtime. Medical Branch pravastatin 2021-03 Yes [id number] 40mg Take 1 [facility] 40 mg 1-11 tablet by ity of tablet 00:00: mouth at [place] [address] bedtime. Medical Branch pravastatin 2021-03 Yes [id number] 40mg Take 1 [facility] 40 mg 1-11 tablet by ity of tablet 00:00: mouth at [place] [address] bedtime. Medical Branch pravastatin 2021-03 Yes [id number] 40mg Take 1 [facility] 40 mg 1-11 tablet by ity of tablet 00:00: mouth at [place] [address] bedtime. Medical Branch pravastatin 2021-03 Yes [id number] 40mg Take 1 [facility] 40 mg 1-11 tablet by ity of tablet 00:00: mouth at [place] [address] bedtime. Medical Branch pravastatin 2021-03 Yes [id number] 40mg Take 1 [facility] 40 mg 1-11 tablet by ity of tablet 00:00: mouth at [place] [address] bedtime. Medical Branch pravastatin 2021-03 Yes [id number] 40mg Take 1 [facility] 40 mg 1-11 tablet by ity of tablet 00:00: mouth at [place] [address] bedtime. Medical Branch pravastatin 2021-03 Yes [id number] 40mg Take 1 [facility] 40 mg 1-11 tablet by ity of tablet 00:00: mouth at [place] [address] bedtime. Medical Branch pravastatin 2021-03 Yes [id number] 40mg Take 1 [facility] 40 mg 1-11 tablet by ity of tablet 00:00: mouth at [place] 00 bedtime. Medical Branch pravastatin 2021-03 Yes [id number] 40mg Take 1 [facility] 40 mg 1-11 tablet by ity of tablet 00:00: mouth at [place] 00 bedtime. Medical Branch pravastatin 2021-03 Yes [id number] 40mg Take 1 [facility] 40 mg 1-11 tablet by ity of tablet 00:00: mouth at [place] 00 bedtime. Medical Branch pravastatin 2021-03 Yes [id number] 40mg Take 1 [facility] 40 mg 1-11 tablet by ity of tablet 00:00: mouth at [place] 00 bedtime. Medical Branch pravastatin 2021-03 Yes [id number] 40mg Take 1 [facility] 40 mg 1-11 tablet by ity of tablet 00:00: mouth at [place] [address] bedtime. Medical Branch pravastatin 2021-03 Yes [id number] 40mg Take 1 [facility] 40 mg 1-11 tablet by ity of tablet 00:00: mouth at [place] [address] bedtime. Medical Branch pravastatin 2021-03 Yes [id number] 40mg Take 1 [facility] 40 mg 1-11 tablet by ity of tablet 00:00: mouth at [place] [address] bedtime. Medical Branch doxepin 25 2021-03 Yes [id number] 25mg Take 1 [facility] mg capsule 1-09 capsule by ity of 00:00: mouth at [place] [address] bedtime. Medical Branch doxepin 25 2021-03 Yes [id number] 25mg Take 1 [facility] mg capsule 1-09 capsule by ity of 00:00: mouth at [place] [address] bedtime. Medical Branch doxepin 25 2021-03 Yes [id number] 25mg Take 1 [facility] mg capsule 1-09 capsule by ity of 00:00: mouth at [place] [address] bedtime. Medical Branch doxepin 25 2021-03 Yes [id number] 25mg Take 1 [facility] mg capsule 1-09 capsule by ity of 00:00: mouth at [place] 00 bedtime. Medical Branch doxepin 25 2021-03 Yes [id number] 25mg Take 1 [facility] mg capsule 1-09 capsule by ity of 00:00: mouth at [place] [address] bedtime. Medical Branch doxepin 25 2021-03 Yes [id number] 25mg Take 1 [facility] mg capsule 1-09 capsule by ity of 00:00: mouth at [place] [address] bedtime. Medical Branch doxepin 25 2021-03 Yes [id number] 25mg Take 1 [facility] mg capsule 1-09 capsule by ity of 00:00: mouth at [place] 00 bedtime. Medical Branch doxepin 25 2021-03 Yes [id number] 25mg Take 1 [facility] mg capsule 1-09 capsule by ity of 00:00: mouth at [place] 00 bedtime. Medical Branch doxepin 25 2021-03 Yes [id number] 25mg Take 1 [facility] mg capsule 1-09 capsule by ity of 00:00: mouth at [place] 00 bedtime. Medical Branch doxepin 2021-03 Yes [id number] 25mg Take 1 [facility] mg capsule 1-09 capsule by ity of 00:00: mouth at [place] 00 bedtime. Medical Branch doxepin 25 2021-03 Yes [id number] 25mg Take 1 [facility] mg capsule 1-09 capsule by ity of 00:00: mouth at [place] [address] bedtime. Medical Branch doxepin 2021-03- No [id number] 25mg Take 1 [facility] mg capsule -09 -12 capsule by it y of 00:00: 00:00 mouth at [place] 00 :00 bedtime. Medical Branch bumetanide 2021-03 Yes 1mg Take 1 mg Un renetta 1 mg tablet 1-07 by mouth ity of 09:58: in the [place] [address] morning. Medical Indication Branch s: reports kidney Dr Rx, ~2 mths ago bumetanide 2021-03 Yes 1mg Take 1 mg Un renetta 1 mg tablet 1-07 by mouth ity of 09:58: in the [place] [address] morning. Medical Indication Branch s: reports kidney Dr Rx, ~2 mths ago bumetanide 2021-03 Yes 1mg Take 1 mg Un renetta 1 mg tablet 1-07 by mouth ity of 09:58: in the [place] [address] morning. Medical Indication Branch s: reports kidney Dr Rx, ~2 mths ago bumetanide 2021-03 Yes 1mg Take 1 mg Un renetta 1 mg tablet 1-07 by mouth ity of 09:58: in the [place] [address] morning. Medical Indication Branch s: reports kidney Dr Rx, ~2 mths ago bumetanide 2021-03 Yes 1mg Take 1 mg Un renetta 1 mg tablet 1-07 by mouth ity of 09:58: in the [place] [address] morning. Medical Indication Branch s: reports kidney Dr Rx, ~2 mths ago bumetanide 2021-03 Yes 1mg Take 1 mg Un renetta 1 mg tablet 1-07 by mouth ity of 09:58: in the [place] [address] morning. Medical Indication Branch s: reports kidney Dr Rx, ~2 mths ago bumetanide 2021-03 Yes 1mg Take 1 mg Un renetta 1 mg tablet 1-07 by mouth ity of 09:58: in the [place] [address] morning. Medical Indication Branch s: reports kidney Dr Rx, ~2 mths ago bumetanide 2021-03 Yes 1mg Take 1 mg Un renetta 1 mg tablet 1-07 by mouth ity of 09:58: in the [place] [address] morning. Medical Indication Branch s: reports kidney Dr Rx, ~2 mths ago bumetanide 2021-03 Yes 1mg Take 1 mg Un renetta 1 mg tablet 1-07 by mouth ity of 09:58: in the [place] [address] morning. Medical Indication Branch s: reports kidney Dr Rx, ~2 mths ago bumetanide 2021-03 Yes 1mg Take 1 mg Un renetta 1 mg tablet 1-07 by mouth ity of 09:58: in the [place] [address] morning. Medical Indication Branch s: reports kidney Dr Rx, ~2 mths ago bumetanide 2021-03 Yes 1mg Take 1 mg Un renetta 1 mg tablet 1-07 by mouth ity of 09:58: in the [place] [address] morning. Medical Indication Branch s: reports kidney Dr Rx, ~2 mths ago bumetanide 2021-03 Yes 1mg Take 1 mg Un renetta 1 mg tablet 1-07 by mouth ity of 09:58: in the [place] [address] morning. Medical Indication Branch s: reports kidney Dr Rx, ~2 mths ago bumetanide 2021-03 Yes 1mg Take 1 mg Un renetta 1 mg tablet 1-07 by mouth ity of 09:58: in the [place] [address] morning. Medical Indication Branch s: reports kidney Dr Rx, ~2 mths ago bumetanide 2021-03 Yes 1mg Take 1 mg Un renetta 1 mg tablet 1-07 by mouth ity of 09:58: in the [place] [address] morning. Medical Indication Branch s: reports kidney Dr Rx, ~2 mths ago bumetanide 2021-03 Yes 1mg Take 1 mg Un renetta 1 mg tablet 1-07 by mouth ity of 09:58: in the [place] [address] morning. Medical Indication Branch s: reports kidney Dr Rx, ~2 mths ago bumetanide 2021-03 Yes 1mg Take 1 mg Un renetta 1 mg tablet 1-07 by mouth ity of 09:58: in the [place] [address] morning. Medical Indication Branch s: reports kidney Dr Rx, ~2 mths ago bumetanide 2021-03 Yes 1mg Take 1 mg Un renetta 1 mg tablet 1-07 by mouth ity of 09:58: in the [place] [address] morning. Medical Indication Branch s: reports kidney Dr Rx, ~2 mths ago bumetanide 2021-03 Yes 1mg Take 1 mg Un renetta 1 mg tablet 1-07 by mouth ity of 09:58: in the [place] [address] morning. Medical Indication Branch s: reports kidney Dr Rx, ~2 mths ago bumetanide 2021-03 Yes 1mg Take 1 mg Un renetta 1 mg tablet 1-07 by mouth ity of 09:58: in the [place] [address] morning. Medical Indication Branch s: reports kidney Dr Rx, ~2 mths ago baclofen 2021-03 Yes [id number] 10mg Take 1 [facility] mg tablet 1-02 tablet by ity o f 00:00: mouth 3 [place] 00 (three) Medical times Branch daily as needed for Pain (scale 7-10). baclofen 2021-03 Yes [id number] 10mg Take 1 [facility] mg tablet 1-02 tablet by ity o f 00:00: mouth 3 [place] 00 (three) Medical times Branch daily as needed for Pain (scale 7-10). benzonatate 2021-03 Yes [id number] 100mg Take 1 [facility] (TESSALON 1-02 capsule by ity of BRAD) 100 00:00: mouth [place] mg capsule 00 every 8 Medica l (eight) Branch hours as needed for Cough. baclofen 2021-03 Yes [id number] 10mg Take 1 [facility] mg tablet 1-02 tablet by ity o f 00:00: mouth 3 [place] 00 (three) Medical times Branch daily as needed for Pain (scale 7-10). benzonatate 2021-03 Yes [id number] 100mg Take 1 [facility] (TESSALON 1-02 capsule by ity of PERLES) 100 00:00: mouth [place] mg capsule 00 every 8 Medica l (eight) Branch hours as needed for Cough. baclofen 2021-03 Yes [id number] 10mg Take 1 [facility] mg tablet 1-02 tablet by ity o f 00:00: mouth 3 [place] 00 (three) Medical times Branch daily as needed for Pain (scale 7-10). benzonatate 2021-03 Yes [id number] 100mg Take 1 [facility] (TESSALON 1-02 capsule by ity of PERLES) 100 00:00: mouth [place] mg capsule 00 every 8 Medica l (eight) Branch hours as needed for Cough. baclofen 2021-03 Yes [id number] 10mg Take 1 [facility] mg tablet 1-02 tablet by ity o f 00:00: mouth 3 [place] 00 (three) Medical times Branch daily as needed for Pain (scale 7-10). benzonatate 2021-03 Yes [id number] 100mg Take 1 [facility] (TESSALON 1-02 capsule by ity of PERLES) 100 00:00: mouth [place] mg capsule 00 every 8 Medica l (eight) Branch hours as needed for Cough. baclofen 2021-03 Yes [id number] 10mg Take 1 [facility] mg tablet 1-02 tablet by ity o f 00:00: mouth 3 [place] 00 (three) Medical times Branch daily as needed for Pain (scale 7-10). benzonatate 2021-03 Yes [id number] 100mg Take 1 [facility] (TESSALON 1-02 capsule by ity of PERLES) 100 00:00: mouth [place] mg capsule 00 every 8 Medica l (eight) Branch hours as needed for Cough. baclofen 2021-03 Yes [id number] 10mg Take 1 [facility] mg tablet 1-02 tablet by ity o f 00:00: mouth 3 [place] 00 (three) Medical times Branch daily as needed for Pain (scale 7-10). benzonatate 2021-03 Yes [id number] 100mg Take 1 [facility] (TESSALON 1-02 capsule by ity of PERLES) 100 00:00: mouth [place] mg capsule 00 every 8 Medica l (eight) Branch hours as needed for Cough. baclofen 2021-03 Yes [id number] 10mg Take 1 [facility] mg tablet 1-02 tablet by ity o f 00:00: mouth 3 [place] 00 (three) Medical times Branch daily as needed for Pain (scale 7-10). benzonatate 2021-03 Yes [id number] 100mg Take 1 [facility] (TESSALON 1-02 capsule by ity of BRAD) 100 00:00: mouth [place] mg capsule 00 every 8 Medica l (eight) Branch hours as needed for Cough. baclofen 2021-03 Yes [id number] 10mg Take 1 [facility] mg tablet 1-02 tablet by ity o f 00:00: mouth 3 [place] 00 (three) Medical times Branch daily as needed for Pain (scale 7-10). baclofen 2021-03 Yes [id number] 10mg Take 1 [facility] mg tablet 1-02 tablet by ity o f 00:00: mouth 3 [place] 00 (three) Medical times Branch daily as needed for Pain (scale 7-10). baclofen 2021-03 Yes [id number] 10mg Take 1 [facility] mg tablet 1-02 tablet by ity o f 00:00: mouth 3 [place] 00 (three) Medical times Branch daily as needed for Pain (scale 7-10). baclofen 2021-03 Yes [id number] 10mg Take 1 [facility] mg tablet 1-02 tablet by ity o f 00:00: mouth 3 [place] 00 (three) Medical times Branch daily as needed for Pain (scale 7-10). baclofen 2021-03 Yes [id number] 10mg Take 1 [facility] mg tablet 1-02 tablet by ity o f 00:00: mouth 3 [place] 00 (three) Medical times Branch daily as needed for Pain (scale 7-10). baclofen 2021-03 Yes [id number] 10mg Take 1 [facility] mg tablet 1-02 tablet by ity o f 00:00: mouth 3 [place] 00 (three) Medical times Branch daily as needed for Pain (scale 7-10). baclofen 2021-03 Yes [id number] 10mg Take 1 [facility] mg tablet 1-02 tablet by ity o f 00:00: mouth 3 [place] 00 (three) Medical times Branch daily as needed for Pain (scale 7-10). baclofen 2021-03 Yes [id number] 10mg Take 1 [facility] mg tablet 1-02 tablet by ity o f 00:00: mouth 3 (three) Medical times Branch daily as needed for Pain (scale 7-10). baclofen 2021-03 Yes [id number] 10mg Take 1 [facility] mg tablet 1-02 tablet by [facility] o f 00:00: mouth 3 (three) Medical times Branch daily as needed for Pain (scale 7-10). baclofen 2021-03 Yes [id number] 10mg Take 1 [facility] mg tablet 1-02 tablet by [facility] o f 00:00: mouth 3 (three) Medical times Branch daily as needed for Pain (scale 7-10). baclofen 2021-03 Yes [id number] 10mg Take 1 [facility] mg tablet 1-02 tablet by [facility] o f 00:00: mouth 3 (three) Medical times Branch daily as needed for Pain (scale 7-10). baclofen 2021-03 Yes [id number] 10mg Take 1 [facility] mg tablet 1-02 tablet by [facility] o f 00:00: mouth (three) Medical times Branch daily as needed for Pain (scale 7-10). baclofen 2021-03 Yes [id number] 10mg Take 1 [facility] mg tablet 1-02 tablet by [facility] o f 00:00: mouth (three) Medical times Branch daily as needed for Pain (scale 7-10). baclofen 2021-03 Yes [id number] 10mg Take 1 [facility] mg tablet 1-02 tablet by [facility] o f 00:00: mouth 3 (three) Medical times Branch daily as needed for Pain (scale 7-10). baclofen 2021-03 Yes [id number] 10mg Take 1 [facility] mg tablet 1-02 tablet by [facility] o f 00:00: mouth 3 (three) Medical times Branch daily as needed for Pain (scale 7-10). baclofen 2021-03 Yes [id number] 10mg Take 1 [facility] mg tablet 1-02 tablet by [facility] o f 00:00: mouth 3 (three) Medical times Branch daily as needed for Pain (scale 7-10). baclofen 2021-03 Yes [id number] 10mg Take 1 [facility] mg tablet 1-02 tablet by [facility] o f 00:00: mouth 3 (three) Medical times Branch daily as needed for Pain (scale 7-10). baclofen 2021-03 Yes [id number] 10mg Take 1 [facility] mg tablet 1-02 tablet by [facility] o f 00:00: mouth 3 [place] 00 (three) Medical times Branch daily as needed for Pain (scale 7-10). baclofen 2021-03 Yes [id number] 10mg Take 1 [facility] mg tablet 1-02 tablet by [facility] o f 00:00: mouth 3 00 (three) Medical times Branch daily as needed for Pain (scale 7-10). baclofen 2021-03 Yes [id number] 10mg Take 1 [facility] mg tablet 1-02 tablet by [facility] o f 00:00: mouth 3 00 (three) Medical times Branch daily as needed for Pain (scale 7-10). baclofen 2021-03 Yes [id number] 10mg Take 1 [facility] mg tablet 1-02 tablet by [facility] o f 00:00: mouth 3 00 (three) Medical times Branch daily as needed for Pain (scale 7-10). baclofen 2021-03 Yes [id number] 10mg Take 1 [facility] mg tablet 1-02 tablet by [facility] o f 00:00: mouth 3 00 (three) Medical times Branch daily as needed for Pain (scale 7-10). baclofen 2021-03 Yes [id number] 10mg Take 1 [facility] mg tablet 1-02 tablet by [facility] o f 00:00: mouth 3 00 (three) Medical times Branch daily as needed for Pain (scale 7-10). baclofen 2021-03 Yes [id number] 10mg Take 1 [facility] mg tablet 1-02 tablet by [facility] o f 00:00: mouth 3 (three) Medical times [facility] daily as needed for Pain (scale 7-10). baclofen 2021-03 Yes [id number] 10mg Take 1 [facility] mg tablet 1-02 tablet by [facility] o f 00:00: mouth 3 00 (three) Medical times Branch daily as needed for Pain (scale 7-10). baclofen 2021-03 Yes [id number] 10mg Take 1 [facility] mg tablet 1-02 tablet by [facility] o f 00:00: mouth 3 [place] 00 (three) Medical times Branch daily as needed for Pain (scale 7-10). baclofen 2021-03 Yes [id number] 10mg Take 1 [facility] mg tablet 1-02 tablet by [facility] o f 00:00: mouth 3 [place] 00 (three) Medical times Branch daily as needed for Pain (scale 7-10). baclofen 2021-03 Yes [id number] 10mg Take 1 [facility] mg tablet 1-02 tablet by [facility] o f 00:00: mouth 3 00 (three) Medical times [facility] daily as needed for Pain (scale 7-10). baclofen 2021-03 Yes [id number] 10mg Take 1 [facility] mg tablet 1-02 tablet by [facility] o f 00:00: mouth 3 [place] 00 (three) Medical times Branch daily as needed for Pain (scale 7-10). baclofen 2021-03 Yes [id number] 10mg Take 1 [facility] mg tablet 1-02 tablet by [facility] o f 00:00: mouth 3 (three) Medical times Branch daily as needed for Pain (scale 7-10). baclofen 2021-03 Yes [id number] 10mg Take 1 [facility] mg tablet 1-02 tablet by [facility] o f 00:00: mouth 3 (three) Medical times Branch daily as needed for Pain (scale 7-10). baclofen 2021-03 Yes [id number] 10mg Take 1 [facility] mg tablet 1-02 tablet by [facility] o f 00:00: mouth 3 (three) Medical times Branch daily as needed for Pain (scale 7-10). baclofen 2021-03 Yes [id number] 10mg Take 1 [facility] mg tablet 1-02 tablet by [facility] o f 00:00: mouth 3 (three) Medical times Branch daily as needed for Pain (scale 7-10). baclofen 2021-03 Yes [id number] 10mg Take 1 [facility] mg tablet 1-02 tablet by [facility] o f 00:00: mouth 3 (three) Medical times Branch daily as needed for Pain (scale 7-10). baclofen 2021-03 Yes [id number] 10mg Take 1 [facility] mg tablet 1-02 tablet by [facility] o f 00:00: mouth 3 (three) Medical times Branch daily as needed for Pain (scale 7-10). baclofen 2021-03 Yes [id number] 10mg Take 1 [facility] mg tablet 1-02 tablet by [facility] o f 00:00: mouth 3 [place] 00 (three) Medical times Branch daily as needed for Pain (scale 7-10). baclofen 2021-03 Yes [id number] 10mg Take 1 [facility] mg tablet 1-02 tablet by [facility] o f 00:00: mouth 3 [place] 00 (three) Medical times Branch daily as needed for Pain (scale 7-10). baclofen 2021-03 Yes [id number] 10mg Take 1 [facility] mg tablet 1-02 tablet by [facility] o f 00:00: mouth 3 [place] 00 (three) Medical times Branch daily as needed for Pain (scale 7-10). baclofen 2021-03 Yes [id number] 10mg Take 1 [facility] mg tablet 1-02 tablet by [facility] o f 00:00: mouth 3 [place] 00 (three) Medical times Branch daily as needed for Pain (scale 7-10). baclofen 2021-03 Yes [id number] 10mg Take 1 [facility] mg tablet 1-02 tablet by [facility] o f 00:00: mouth 3 00 (three) Medical times Branch daily as needed for Pain (scale 7-10). baclofen 2021-03 Yes [id number] 10mg Take 1 [facility] mg tablet 1-02 tablet by [facility] o f 00:00: mouth 3 00 (three) Medical times Branch daily as needed for Pain (scale 7-10). baclofen 2021-03- No [id number] 10mg Take 1 [facility] mg tablet 1-02 04-19 tablet by [facility] of 00:00: 00:00 mouth 3 [place] 00 :00 (three) Medical times Branch daily as needed for Pain (scale 7-10). benzonatate 2021-03- No [id number] 100mg Take 1 [facility] (TESSALON - 11-23 capsule by [facility] of [facility]) 100 [...] Indication s: acute pain, chronic pain acetaminoph 2022-1 Yes 2745 1{tbl} Take 1 [facility] renetta [...] s: acute pain, chronic pain albuterol Yes [id number] 2.5mg Inhale 3 [facility] 2.5 mg /3 9-29 mL every 2 [facility] of mL (0.083 00:00: (two) [place] %) 00 hours as Medical nebulizer needed for Bran ch solution Shortness of Breath or Wheezing. ipratropium 2022-0 Yes [id number] .5mg Inhale 2.5 [facility] 0.02 % 9-29 [...] in the Branch evening. albuterol 2022-0 Yes [id number] 2.5mg Inhale 3 [facility] 2.5 mg /3 9-29 mL every 2 [facility] of mL (0.083 00:00: (two) [place] %) 00 hours as Medical nebulizer needed for Bran ch solution Shortness of Breath or Wheezing. ipratropium 2-0 Yes [id number] .5mg Inhale 2.5 [facility] 0.02 % 9-29 [...] in the Branch evening. albuterol 2022-0 Yes [id number] 2.5mg Inhale 3 [facility] 2.5 mg /3 9-29 mL every 2 [facility] of mL (0.083 00:00: (two) [place] %) 00 hours as Medical nebulizer needed for Bran ch solution Shortness of Breath or Wheezing. ipratropium 2022-0 Yes [id number] .5mg Inhale 2.5 [facility] 0.02 % 9-29 [...] in the Branch evening. albuterol 2022-0 Yes [id number] 2.5mg Inhale 3 [facility] 2.5 mg /3 9-29 mL every 2 [facility] of mL (0.083 00:00: (two) [place] %) 00 hours as Medical nebulizer needed for Bran ch solution Shortness of Breath or Wheezing. ipratropium 2-0 Yes [id number] .5mg Inhale 2.5 [facility] 0.02 % 9-29 [...] in the Branch evening. albuterol 2022-0 Yes [id number] 2.5mg Inhale 3 [facility] 2.5 mg /3 9-29 mL every 2 [facility] of mL (0.083 00:00: (two) [place] %) 00 hours as Medical nebulizer needed for Bran ch solution Shortness of Breath or Wheezing. ipratropium 2022-0 Yes [id number] .5mg Inhale 2.5 [facility] 0.02 % 9-29 [...] in the Branch evening. albuterol 2022-0 Yes [id number] 2.5mg Inhale 3 [facility] 2.5 mg /3 9-29 mL every 2 [facility] of mL (0.083 00:00: (two) [place] %) 00 hours as Medical nebulizer needed for Bran ch solution Shortness of Breath or Wheezing. ipratropium 2-0 Yes [id number] .5mg Inhale 2.5 [facility] 0.02 % 9-29 [...] in the Branch evening. albuterol 2022-0 Yes [id number] 2.5mg Inhale 3 [facility] 2.5 mg /3 9-29 mL every 2 [facility] of mL (0.083 00:00: (two) [place] %) 00 hours as Medical nebulizer needed for Bran ch solution Shortness of Breath or Wheezing. ipratropium 2022-0 Yes [id number] .5mg Inhale 2.5 [facility] 0.02 % 9-29 [...] in the Branch evening. albuterol 2021-0 Yes [id number] 2.5mg Inhale 3 [facility] 2.5 mg /3 9-29 mL every 2 [facility] of mL (0.083 00:00: (two) [place] %) 00 hours as Medical nebulizer needed for Bran ch solution Shortness of Breath or Wheezing. ipratropium 2021-0 Yes [id number] .5mg Inhale 2.5 [facility] 0.02 % 9-29 [...] in the Branch evening. albuterol 2-0 Yes [id number] 2.5mg Inhale 3 [facility] 2.5 mg /3 9-29 mL every 2 [facility] of mL (0.083 00:00: (two) [place] %) 00 hours as Medical nebulizer needed for Bran ch solution Shortness of Breath or Wheezing. ipratropium 2-0 Yes [id number] .5mg Inhale 2.5 [facility] 0.02 % 9-29 [...] in the Branch evening. albuterol 2021-0 Yes [id number] 2.5mg Inhale 3 [facility] 2.5 mg /3 9-29 mL every 2 [facility] of mL (0.083 00:00: (two) [place] %) 00 hours as Medical nebulizer needed for Bran ch solution Shortness of Breath or Wheezing. ipratropium 2021-0 Yes [id number] .5mg Inhale 2.5 [facility] 0.02 % 9-29 [...] in the Branch evening. albuterol 2021-0 Yes [id number] 2.5mg Inhale 3 [facility] 2.5 mg /3 9-29 mL every 2 [facility] of mL (0.083 00:00: (two) [place] %) 00 hours as Medical nebulizer needed for Bran ch solution Shortness of Breath or Wheezing. ipratropium 2-0 Yes [id number] .5mg Inhale 2.5 [facility] 0.02 % 9-29 [...] in the Branch evening. albuterol 2-0 Yes [id number] 2.5mg Inhale 3 [facility] 2.5 mg /3 9-29 mL every 2 [facility] of mL (0.083 00:00: (two) [place] %) 00 hours as Medical nebulizer needed for Bran ch solution Shortness of Breath or Wheezing. ipratropium 2-0 Yes [id number] .5mg Inhale 2.5 [facility] 0.02 % 9-29 [...] in the Branch evening. albuterol 2-0 Yes [id number] 2.5mg Inhale 3 [facility] 2.5 mg /3 9-29 mL every 2 [facility] of mL (0.083 00:00: (two) [place] %) 00 hours as Medical nebulizer needed for Bran ch solution Shortness of Breath or Wheezing. ipratropium 2-0 Yes [id number] .5mg Inhale 2.5 [facility] 0.02 % 9-29 [...] in the Branch evening. albuterol 2-0 Yes [id number] 2.5mg Inhale 3 [facility] 2.5 mg /3 9-29 mL every 2 [facility] of mL (0.083 00:00: (two) [place] %) 00 hours as Medical nebulizer needed for Bran ch solution Shortness of Breath or Wheezing. ipratropium 2-0 Yes [id number] .5mg Inhale 2.5 [facility] 0.02 % 9-29 [...] in the Branch evening. albuterol 2-0 Yes [id number] 2.5mg Inhale 3 [facility] 2.5 mg /3 9-29 mL every 2 [facility] of mL (0.083 00:00: (two) [place] %) 00 hours as Medical nebulizer needed for Bran ch solution Shortness of Breath or Wheezing. ipratropium 2-0 Yes [id number] .5mg Inhale 2.5 [facility] 0.02 % 9-29 [...] in the Branch evening. albuterol 2022-0 Yes [id number] 2.5mg Inhale 3 [facility] 2.5 mg /3 9-29 mL every 2 [facility] of mL (0.083 00:00: (two) [place] %) 00 hours as Medical nebulizer needed for Bran ch solution Shortness of Breath or Wheezing. ipratropium 2022-0 Yes [id number] .5mg Inhale 2.5 [facility] 0.02 % 9-29 [...] in the Branch evening. albuterol 2022-0 Yes [id number] 2.5mg Inhale 3 [facility] 2.5 mg /3 9-29 mL every 2 [facility] of mL (0.083 00:00: (two) [place] %) 00 hours as Medical nebulizer needed for Bran ch solution Shortness of Breath or Wheezing. ipratropium 2-0 Yes [id number] .5mg Inhale 2.5 [facility] 0.02 % 9-29 [...] in the Branch evening. albuterol 2022-0 Yes [id number] 2.5mg Inhale 3 [facility] 2.5 mg /3 9-29 mL every 2 [facility] of mL (0.083 00:00: (two) [place] %) 00 hours as Medical nebulizer needed for Bran ch solution Shortness of Breath or Wheezing. ipratropium 2022-0 Yes [id number] .5mg Inhale 2.5 [facility] 0.02 % 9-29 [...] in the Branch evening. albuterol 2022-0 Yes [id number] 2.5mg Inhale 3 [facility] 2.5 mg /3 9-29 mL every 2 [facility] of mL (0.083 00:00: (two) [place] %) 00 hours as Medical nebulizer needed for Bran ch solution Shortness of Breath or Wheezing. ipratropium 2022-0 Yes [id number] .5mg Inhale 2.5 [facility] 0.02 % 9-29 [...] in the Branch evening. albuterol 2022-0 Yes [id number] 2.5mg Inhale 3 [facility] 2.5 mg /3 9-29 mL every 2 [facility] of mL (0.083 00:00: (two) [place] %) 00 hours as Medical nebulizer needed for Bran ch solution Shortness of Breath or Wheezing. ipratropium 2022-0 Yes [id number] .5mg Inhale 2.5 [facility] 0.02 % 9-29 [...] in the Branch evening. albuterol 2-0 Yes [id number] 2.5mg Inhale 3 [facility] 2.5 mg /3 9-29 mL every 2 [facility] of mL (0.083 00:00: (two) [place] %) 00 hours as Medical nebulizer needed for Bran ch solution Shortness of Breath or Wheezing. ipratropium 2-0 Yes [id number] .5mg Inhale 2.5 [facility] 0.02 % 9-29 [...] in the Branch evening. albuterol 2022-0 Yes [id number] 2.5mg Inhale 3 [facility] 2.5 mg /3 9-29 mL every 2 [facility] of mL (0.083 00:00: (two) [place] %) 00 hours as Medical nebulizer needed for Bran ch solution Shortness of Breath or Wheezing. ipratropium 2022-0 Yes [id number] .5mg Inhale 2.5 [facility] 0.02 % 9-29 [...] in the Branch evening. albuterol 2022-0 Yes [id number] 2.5mg Inhale 3 [facility] 2.5 mg /3 9-29 mL every 2 [facility] of mL (0.083 00:00: (two) [place] %) 00 hours as Medical nebulizer needed for Bran ch solution Shortness of Breath or Wheezing. ipratropium 2-0 Yes [id number] .5mg Inhale 2.5 [facility] 0.02 % 9-29 [...] in the Branch evening. albuterol 2-0 Yes [id number] 2.5mg Inhale 3 [facility] 2.5 mg /3 9-29 mL every 2 [facility] of mL (0.083 00:00: (two) [place] %) 00 hours as Medical nebulizer needed for Bran ch solution Shortness of Breath or Wheezing. ipratropium 2022-0 Yes [id number] .5mg Inhale 2.5 [facility] 0.02 % 9-29 [...] in the Branch evening. albuterol 2021-0 Yes [id number] 2.5mg Inhale 3 [facility] 2.5 mg /3 9-29 mL every 2 [facility]y of mL (0.083 00:00: (two) [place] %) 00 hours as Medical nebulizer needed for Bran ch solution Shortness of Breath or Wheezing. ipratropium 2021-0 Yes [id number] .5mg Inhale 2.5 [facility] 0.02 % 9-29 [...] 0.25 mg/2 9-29 mL in the ity of mL 00:00: morning [place] nebulizer 00 and 2 mL Medica l solution in the Branch evening. albuterol 2021-0 Yes [id number] 2.5mg Inhale 3 [facility] 2.5 mg /3 9-29 mL every 2 ity of mL (0.083 00:00: (two) [place] %) 00 hours as Medical nebulizer needed for Bran ch solution Shortness of Breath or Wheezing. ipratropium 2-0 Yes [id number] .5mg Inhale 2.5 [facility] 0.02 % 9-29 [...] in the Branch evening. albuterol 2-0 Yes [id number] 2.5mg Inhale 3 [facility] 2.5 mg /3 9-29 mL every 2 ity of mL (0.083 00:00: (two) [place] %) 00 hours as Medical nebulizer needed for Bran ch solution Shortness of Breath or Wheezing. ipratropium 2022-0 Yes [id number] .5mg Inhale 2.5 [facility] 0.02 % 9-29 [...] in the Branch evening. albuterol 2022-0 Yes [id number] 2.5mg Inhale 3 [facility] 2.5 mg /3 9-29 mL every 2 ity of mL (0.083 00:00: (two) [place] %) 00 hours as Medical nebulizer needed for Bran ch solution Shortness of Breath or Wheezing. ipratropium 2022-0 Yes [id number] .5mg Inhale 2.5 [facility] 0.02 % 9-29 [...] in the Branch evening. albuterol 2-0 Yes [id number] 2.5mg Inhale 3 [facility] 2.5 mg /3 9-29 mL every 2 ity of mL (0.083 00:00: (two) [place] %) 00 hours as Medical nebulizer needed for Bran ch solution Shortness of Breath or Wheezing. ipratropium 2-0 Yes [id number] .5mg Inhale 2.5 [facility] 0.02 % 9-29 [...] in the Branch evening. albuterol 2021-0 Yes [id number] 2.5mg Inhale 3 [facility] 2.5 mg /3 9-29 mL every 2 ity of mL (0.083 00:00: (two) [place] %) 00 hours as Medical nebulizer needed for Bran ch solution Shortness of Breath or Wheezing. ipratropium 2-0 Yes [id number] .5mg Inhale 2.5 [facility] 0.02 % 9-29 [...] the Branch evening. albuterol 2021-0 2022- No [id number] 2.5mg Inhale 3 [facility] 2.5 mg /3 11-30-05 mL every 2 ity of mL (0.083 00:00: 00:00 (two) [place] %) 00 :00 hours as Medical nebulizer needed for Bran ch solution Shortness of Breath or Wheezing. ipratropium 2021-0 3- No [id number] .5mg Inhale 2.5 [facility] 0.02 % 11-30-05 [...] the Branch evening. albuterol 2021-0 2022- No [id number] 2.5mg Inhale 3 [facility] 2.5 mg /3 11-30-05 mL every 2 ity of mL (0.083 00:00: 00:00 (two) [place] %) 00 :00 hours as Medical nebulizer needed for Bran ch solution Shortness of Breath or Wheezing. ipratropium 2-0 2022- No [id number] .5mg Inhale 2.5 [facility] 0.02 % 11-30-05 mL every 4 ity of nebulizer 00:00: 00:00 (four) [place] solution 00 :00 hours as Medical needed for Branch Wheezing or Shortness of Breath. arformotero 2-0 2022- No 15ug Use 2 mL U nivers L 15 mcg/2 11-3005 as ity of mL 00:00: 00:00 directed [place] nebulizer 00 :00 in the Medical solution morning Branch and 2 mL in the evening. budesonide 2022-0 2023- No .25mg Inhale 2 U nivers 0.25 mg/2 11-30-05 mL in the ity of mL 00:00: 00:00 morning [place] nebulizer 00 :00 and 2 mL Medica l solution in the Branch evening. albuterol 2021-0 2022- No [id number] 2.5mg Inhale 3 [facility] 2.5 mg /3 11-30-05 mL every 2 ity of mL (0.083 00:00: 00:00 (two) [place] %) 00 :00 hours as Medical nebulizer needed for Bran ch solution Shortness of Breath or Wheezing. ipratropium 2021-0 2022- No [id number] .5mg Inhale 2.5 [facility] 0.02 % 11-30-05 [...] the Branch evening. albuterol 2021-0 2022- No [id number] 2.5mg Inhale 3 [facility] 2.5 mg /3 11-30-05 mL every 2 ity of mL (0.083 00:00: 00:00 (two) [place] %) 00 :00 hours as Medical nebulizer needed for Bran ch solution Shortness of Breath or Wheezing. ipratropium 2021-0 2022- No [id number] .5mg Inhale 2.5 [facility] 0.02 % 11-30-05 [...] and 2 mL in the evening. budesonide 3- No .25mg Inhale 2 U nivers 0.25 mg/2 11-30-05 mL in the ity of mL 00:00: 00:00 morning [place] nebulizer 00 :00 and 2 mL Medica l solution in the Branch evening. Desoximetas 0 Yes [id number] Apply to [facility] one 0.25 % 9-27 area(s) 2 ity of ointment 00:00: (two) [place] 00 times Medical daily. Branch Desoximetas 0 Yes [id number] Apply to [facility] one 0.25 % 9-27 area(s) 2 ity of ointment 00:00: (two) [place] 00 times Medical daily. Branch Desoximetas 0 Yes [id number] Apply to [facility] one 0.25 % 9-27 area(s) 2 ity of ointment 00:00: (two) [place] 00 times Medical daily. Branch Desoximetas 0 Yes [id number] Apply to [facility] one 0.25 % 9-27 area(s) 2 ity of ointment 00:00: (two) [place] 00 times Medical daily. Branch Desoximetas 0 Yes [id number] Apply to [facility] one 0.25 % 9-27 area(s) 2 ity of ointment 00:00: (two) [place] 00 times Medical daily. Branch Desoximetas 0 Yes [id number] Apply to [facility] one 0.25 % 9-27 area(s) 2 ity of ointment 00:00: (two) [place] 00 times Medical daily. Branch Desoximetas 2021-0 Yes [id number] Apply to [facility] one 0.25 % 9-27 area(s) 2 ity of ointment 00:00: (two) [place] 00 times Medical daily. Branch Desoximetas 0 Yes [id number] Apply to [facility] one 0.25 % 9-27 area(s) 2 ity of ointment 00:00: (two) [place] 00 times Medical daily. Branch Desoximetas 2022-0 Yes [id number] Apply to [facility] one 0.25 % 9-27 area(s) 2 ity of ointment 00:00: (two) [place] 00 times Medical daily. Branch Desoximetas 2022-0 Yes [id number] Apply to [facility] one 0.25 % 9-27 area(s) 2 ity of ointment 00:00: (two) [place] 00 times Medical daily. Branch Desoximetas 2022-0 Yes [id number] Apply to [facility] one 0.25 % 9-27 area(s) 2 ity of ointment 00:00: (two) [place] 00 times Medical daily. Branch Desoximetas 2022-0 Yes [id number] Apply to [facility] one 0.25 % 9-27 area(s) 2 ity of ointment 00:00: (two) [place] 00 times Medical daily. Branch Desoximetas 2022-0 Yes [id number] Apply to [facility] one 0.25 % 9-27 area(s) 2 ity of ointment 00:00: (two) [place] 00 times Medical daily. Branch Desoximetas 2022-0 Yes [id number] Apply to [facility] one 0.25 % 9-27 area(s) 2 ity of ointment 00:00: (two) [place] 00 times Medical daily. Branch Desoximetas 2022-0 Yes [id number] Apply to [facility] one 0.25 % 9-27 area(s) 2 ity of ointment 00:00: (two) [place] 00 times Medical daily. Branch Desoximetas 2022-0 Yes [id number] Apply to [facility] one 0.25 % 9-27 area(s) 2 ity of ointment 00:00: (two) [place] 00 times Medical daily. Branch Desoximetas 2022-0 Yes [id number] Apply to [facility] one 0.25 % 9-27 area(s) 2 ity of ointment 00:00: (two) [place] 00 times Medical daily. Branch Desoximetas 2022-0 Yes [id number] Apply to [facility] one 0.25 % 9-27 area(s) 2 ity of ointment 00:00: (two) [place] 00 times Medical daily. Branch Desoximetas 2022-0 Yes [id number] Apply to [facility] one 0.25 % 9-27 area(s) 2 ity of ointment 00:00: (two) [place] 00 times Medical daily. Branch Desoximetas 2022-0 Yes [id number] Apply to [facility] one 0.25 % 9-27 area(s) 2 ity of ointment 00:00: (two) [place] 00 times Medical daily. Branch Desoximetas 2022-0 Yes [id number] Apply to [facility] one 0.25 % 9-27 area(s) 2 ity of ointment 00:00: (two) [place] 00 times Medical daily. Branch Desoximetas 2022-0 Yes [id number] Apply to [facility] one 0.25 % 9-27 area(s) 2 ity of ointment 00:00: (two) [place] 00 times Medical daily. Branch Desoximetas 2022-0 Yes [id number] Apply to [facility] one 0.25 % 9-27 area(s) 2 ity of ointment 00:00: (two) [place] 00 times Medical daily. Branch Desoximetas 2022-0 Yes [id number] Apply to [facility] one 0.25 % 9-27 area(s) 2 ity of ointment 00:00: (two) [place] 00 times Medical daily. Branch Desoximetas 2022-0 Yes [id number] Apply to [facility] one 0.25 % 9-27 area(s) 2 ity of ointment 00:00: (two) [place] 00 times Medical daily. Branch Desoximetas 2022-0 Yes [id number] Apply to [facility] one 0.25 % 9-27 area(s) 2 ity of ointment 00:00: (two) [place] 00 times Medical daily. Branch Desoximetas 2022-0 Yes [id number] Apply to [facility] one 0.25 % 9-27 area(s) 2 ity of ointment 00:00: (two) [place] 00 times Medical daily. Branch Desoximetas 2022-0 Yes [id number] Apply to [facility] one 0.25 % 9-27 area(s) 2 ity of ointment 00:00: (two) [place] 00 times Medical daily. Branch Desoximetas 2022-0 Yes [id number] Apply to [facility] one 0.25 % 9-27 area(s) 2 ity of ointment 00:00: (two) [place] 00 times Medical daily. Branch Desoximetas 2022-0 Yes [id number] Apply to [facility] one 0.25 % 9-27 area(s) 2 ity of ointment 00:00: (two) [place] 00 times Medical daily. Branch Desoximetas 2022-0 Yes [id number] Apply to [facility] one 0.25 % 9-27 area(s) 2 ity of ointment 00:00: (two) [place] 00 times Medical daily. Branch Desoximetas 2022-0 Yes [id number] Apply to [facility] one 0.25 % 9-27 area(s) 2 ity of ointment 00:00: (two) [place] 00 times Medical daily. Branch Desoximetas 2022-0 Yes [id number] Apply to [facility] one 0.25 % 9-27 area(s) 2 ity of ointment 00:00: (two) [place] 00 times Medical daily. Branch Desoximetas 2022-0 Yes [id number] Apply to [facility] one 0.25 % 9-27 area(s) 2 ity of ointment 00:00: (two) [place] 00 times Medical daily. Branch Desoximetas 2022-0 Yes [id number] Apply to [facility] one 0.25 % 9-27 area(s) 2 ity of ointment 00:00: (two) [place] 00 times Medical daily. Branch Desoximetas 2022-0 Yes [id number] Apply to [facility] one 0.25 % 9-27 area(s) 2 ity of ointment 00:00: (two) [place] 00 times Medical daily. Branch Desoximetas 2022-0 Yes [id number] Apply to [facility] one 0.25 % 9-27 area(s) 2 ity of ointment 00:00: (two) [place] 00 times Medical daily. Branch Desoximetas 2022-0 Yes [id number] Apply to [facility] one 0.25 % 9-27 area(s) 2 ity of ointment 00:00: (two) [place] 00 times Medical daily. Branch Desoximetas 2022-0 Yes [id number] Apply to [facility] one 0.25 % 9-27 area(s) 2 ity of ointment 00:00: (two) [place] 00 times Medical daily. Branch Desoximetas 2022-0 Yes [id number] Apply to [facility] one 0.25 % 9-27 area(s) 2 ity of ointment 00:00: (two) [place] 00 times Medical daily. Branch Desoximetas 2022-0 Yes [id number] Apply to [facility] one 0.25 % 9-27 area(s) 2 ity of ointment 00:00: (two) [place] 00 times Medical daily. Branch Desoximetas 2022-0 Yes [id number] Apply to [facility] one 0.25 % 9-27 area(s) 2 ity of ointment 00:00: (two) [place] 00 times Medical daily. Branch Desoximetas 2022-0 Yes [id number] Apply to [facility] one 0.25 % 9-27 area(s) 2 ity of ointment 00:00: (two) [place] 00 times Medical daily. Branch Desoximetas 2022-0 Yes [id number] Apply to [facility] one 0.25 % 9-27 area(s) 2 ity of ointment 00:00: (two) [place] 00 times Medical daily. Branch Desoximetas 2022-0 Yes [id number] Apply to [facility] one 0.25 % 9-27 area(s) 2 ity of ointment 00:00: (two) [place] 00 times Medical daily. Branch Desoximetas 2022-0 Yes [id number] Apply to [facility] one 0.25 % 9-27 area(s) 2 ity of ointment 00:00: (two) [place] 00 times Medical daily. Branch Desoximetas 2022-0 Yes [id number] Apply to [facility] one 0.25 % 9-27 area(s) 2 ity of ointment 00:00: (two) [place] 00 times Medical daily. Branch Desoximetas 2022-0 Yes [id number] Apply to [facility] one 0.25 % 9-27 area(s) 2 ity of ointment 00:00: (two) [place] 00 times Medical daily. Branch Desoximetas 2022-0 Yes [id number] Apply to [facility] one 0.25 % 9-27 area(s) 2 ity of ointment 00:00: (two) [place] 00 times Medical daily. Branch Desoximetas 2022-0 Yes [id number] Apply to [facility] one 0.25 % 9-27 area(s) 2 ity of ointment 00:00: (two) [place] 00 times Medical daily. Branch Desoximetas 2022-0 Yes [id number] Apply to [facility] one 0.25 % 9-27 area(s) 2 ity of ointment 00:00: (two) [place] 00 times Medical daily. Branch Desoximetas 2022-0 Yes [id number] Apply to [facility] one 0.25 % 9-27 area(s) 2 ity of ointment 00:00: (two) [place] 00 times Medical daily. Branch Desoximetas 2022-0 Yes [id number] Apply to [facility] one 0.25 % 9-27 area(s) 2 ity of ointment 00:00: (two) [place] 00 times Medical daily. Branch Desoximetas 2022-0 Yes [id number] Apply to [facility] one 0.25 % 9-27 area(s) 2 ity of ointment 00:00: (two) [place] 00 times Medical daily. Branch Desoximetas 2022-0 Yes [id number] Apply to [facility] one 0.25 % 9-27 area(s) 2 ity of ointment 00:00: (two) [place] 00 times Medical daily. Branch Desoximetas 2022-0 Yes [id number] Apply to [facility] one 0.25 % 9-27 area(s) 2 ity of ointment 00:00: (two) [place] 00 times Medical daily. Branch Desoximetas 2022-0 Yes [id number] Apply to [facility] one 0.25 % 9-27 area(s) 2 ity of ointment 00:00: (two) [place] 00 times Medical daily. Branch Desoximetas 2022-0 Yes [id number] Apply to [facility] one 0.25 % 9-27 area(s) 2 ity of ointment 00:00: (two) [place] 00 times Medical daily. Branch Desoximetas 2022-0 Yes [id number] Apply to [facility] one 0.25 % 9-27 area(s) 2 ity of ointment 00:00: (two) [place] 00 times Medical daily. Branch Desoximetas 2022-0 Yes [id number] Apply to [facility] one 0.25 % 9-27 area(s) 2 ity of ointment 00:00: (two) [place] 00 times Medical daily. Branch Desoximetas 2022-0 Yes [id number] Apply to [facility] one 0.25 % 9-27 area(s) 2 ity of ointment 00:00: (two) [place] 00 times Medical daily. Branch Desoximetas 2022-0 Yes [id number] Apply to [facility] one 0.25 % 9-27 area(s) 2 ity of ointment 00:00: (two) [place] 00 times Medical daily. Branch Desoximetas 2022-0 Yes [id number] Apply to [facility] one 0.25 % 9-27 area(s) 2 ity of ointment 00:00: (two) [place] 00 times Medical daily. Branch Desoximetas 2022-0 Yes [id number] Apply to [facility] one 0.25 % 9-27 area(s) 2 ity of ointment 00:00: (two) [place] 00 times Medical daily. Branch Desoximetas 2-0 Yes [id number] Apply to [facility] one 0.25 % 9-27 area(s) 2 ity of ointment 00:00: (two) [place] 00 times Medical daily. Branch hydrOXYzine 2021-0 Yes [id number] 25mg Take 1 [facility] 25 mg 9-12 capsule by ity of capsule 00:00: mouth 3 (three) Medical times [place] daily as needed for Itching. allopurinoL 2-0 Yes [id number] 50mg Take 0.5 [facility] 100 mg 9-12 tablets by ity of tablet 00:00: mouth [place] 00 every Medical other day. Branch hydrOXYzine 2021-0 Yes [id number] 25mg Take 1 [facility] 25 mg 9-12 capsule by ity of capsule 00:00: mouth 3 (three) Medical times Branch daily as needed for Itching. allopurinoL 2022-0 Yes [id number] 50mg Take 0.5 [facility] 100 mg 9-12 tablets by ity of tablet 00:00: mouth [place] 00 every Medical other day. Branch hydrOXYzine 2021-0 Yes [id number] 25mg Take 1 [facility] 25 mg 9-12 capsule by ity of capsule 00:00: mouth 3 (three) Medical times Branch daily as needed for Itching. allopurinoL 2021-0 Yes [id number] 50mg Take 0.5 [facility] 100 mg 9-12 tablets by ity of tablet 00:00: mouth [place] 00 every Medical other day. Branch hydrOXYzine 2021-0 Yes [id number] 25mg Take 1 [facility] 25 mg 9-12 capsule by ity of capsule 00:00: mouth (three) Medical times Branch daily as needed for Itching. allopurinoL 2021-0 Yes [id number] 50mg Take 0.5 [facility] 100 mg 9-12 tablets by ity of tablet 00:00: mouth [place] 00 every Medical other day. Branch hydrOXYzine 2021-0 Yes [id number] 25mg Take 1 [facility] 25 mg 9-12 capsule by ity of capsule 00:00: mouth (three) Medical times Branch daily as needed for Itching. allopurinoL 2021-0 Yes [id number] 50mg Take 0.5 [facility] 100 mg 9-12 tablets by ity of tablet 00:00: mouth [place] 00 every Medical other day. Branch hydrOXYzine 2021-0 Yes [id number] 25mg Take 1 [facility] 25 mg 9-12 capsule by ity of capsule 00:00: mouth (three) Medical times Branch daily as needed for Itching. allopurinoL 2021-0 Yes [id number] 50mg Take 0.5 [facility] 100 mg 9-12 tablets by ity of tablet 00:00: mouth [place] 00 every Medical other day. Branch hydrOXYzine 2021-0 Yes [id number] 25mg Take 1 [facility] 25 mg 9-12 capsule by ity of capsule 00:00: mouth 3 (three) Medical times Branch daily as needed for Itching. allopurinoL 2-0 Yes [id number] 50mg Take 0.5 [facility] 100 mg 9-12 tablets by ity of tablet 00:00: mouth [place] 00 every Medical other day. Branch hydrOXYzine 2021-0 Yes [id number] 25mg Take 1 [facility] 25 mg 9-12 capsule by ity of capsule 00:00: mouth 3 (three) Medical times Branch daily as needed for Itching. allopurinoL 2021-0 Yes [id number] 50mg Take 0.5 [facility] 100 mg 9-12 tablets by ity of tablet 00:00: mouth [place] 00 every Medical other day. Branch hydrOXYzine 2021-0 Yes [id number] 25mg Take 1 [facility] 25 mg 9-12 capsule by ity of capsule 00:00: mouth (three) Medical times Branch daily as needed for Itching. allopurinoL 2021-0 Yes [id number] 50mg Take 0.5 [facility] 100 mg 9-12 tablets by ity of tablet 00:00: mouth 00 every Medical other day. Branch hydrOXYzine 2021-0 Yes [id number] 25mg Take 1 [facility] 25 mg 9-12 capsule by ity of capsule 00:00: mouth (three) Medical times Branch daily as needed for Itching. allopurinoL 2021-0 Yes [id number] 50mg Take 0.5 [facility] 100 mg 9-12 tablets by ity of tablet 00:00: mouth 00 every Medical other day. Branch hydrOXYzine 2021-0 Yes [id number] 25mg Take 1 [facility] 25 mg 9-12 capsule by ity of capsule 00:00: mouth (three) Medical times Branch daily as needed for Itching. allopurinoL 2021-0 Yes [id number] 50mg Take 0.5 [facility] 100 mg 9-12 tablets by ity of tablet 00:00: mouth 00 every Medical other day. Branch hydrOXYzine 2021-0 Yes [id number] 25mg Take 1 [facility] 25 mg 9-12 capsule by ity of capsule 00:00: mouth (three) Medical times Branch daily as needed for Itching. allopurinoL 2021-0 Yes [id number] 50mg Take 0.5 [facility] 100 mg 9-12 tablets by ity of tablet 00:00: mouth [place] 00 every Medical other day. Branch hydrOXYzine 2021-0 Yes [id number] 25mg Take 1 [facility] 25 mg 9-12 capsule by ity of capsule 00:00: mouth (three) Medical times Branch daily as needed for Itching. allopurinoL 2-0 Yes [id number] 50mg Take 0.5 [facility] 100 mg 9-12 tablets by ity of tablet 00:00: mouth [place] 00 every Medical other day. Branch hydrOXYzine 2-0 Yes [id number] 25mg Take 1 [facility] 25 mg 9-12 capsule by ity of capsule 00:00: mouth 3 (three) Medical times Branch daily as needed for Itching. allopurinoL 2-0 Yes [id number] 50mg Take 0.5 [facility] 100 mg 9-12 tablets by ity of tablet 00:00: mouth [place] 00 every Medical other day. Branch hydrOXYzine 2021-0 Yes [id number] 25mg Take 1 [facility] 25 mg 9-12 capsule by ity of capsule 00:00: mouth 3 (three) Medical times Branch daily as needed for Itching. allopurinoL 2021-0 Yes [id number] 50mg Take 0.5 [facility] 100 mg 9-12 tablets by ity of tablet 00:00: mouth [place] 00 every Medical other day. Branch hydrOXYzine 2021-0 Yes [id number] 25mg Take 1 [facility] 25 mg 9-12 capsule by ity of capsule 00:00: mouth (three) Medical times Branch daily as needed for Itching. allopurinoL 2021-0 Yes [id number] 50mg Take 0.5 [facility] 100 mg 9-12 tablets by ity of tablet 00:00: mouth [place] 00 every Medical other day. Branch hydrOXYzine 2021-0 Yes [id number] 25mg Take 1 [facility] 25 mg 9-12 capsule by ity of capsule 00:00: mouth (three) Medical times Branch daily as needed for Itching. allopurinoL 2-0 Yes [id number] 50mg Take 0.5 [facility] 100 mg 9-12 tablets by ity of tablet 00:00: mouth [place] 00 every Medical other day. Branch hydrOXYzine 2-0 Yes [id number] 25mg Take 1 [facility] 25 mg 9-12 capsule by ity of capsule 00:00: mouth 3 (three) Medical times Branch daily as needed for Itching. allopurinoL 2022-0 Yes [id number] 50mg Take 0.5 [facility] 100 mg 9-12 tablets by ity of tablet 00:00: mouth [place] 00 every Medical other day. Branch hydrOXYzine 2-0 Yes [id number] 25mg Take 1 [facility] 25 mg 9-12 capsule by ity of capsule 00:00: mouth (three) Medical times Branch daily as needed for Itching. allopurinoL 2021-0 Yes [id number] 50mg Take 0.5 [facility] 100 mg 9-12 tablets by ity of tablet 00:00: mouth [place] 00 every Medical other day. Branch hydrOXYzine 2021-0 Yes [id number] 25mg Take 1 [facility] 25 mg 9-12 capsule by ity of capsule 00:00: mouth (three) Medical times Branch daily as needed for Itching. allopurinoL 2021-0 Yes [id number] 50mg Take 0.5 [facility] 100 mg 9-12 tablets by ity of tablet 00:00: mouth 00 every Medical other day. Branch hydrOXYzine 2021-0 Yes [id number] 25mg Take 1 [facility] 25 mg 9-12 capsule by ity of capsule 00:00: mouth (three) Medical times Branch daily as needed for Itching. allopurinoL 2021-0 Yes [id number] 50mg Take 0.5 [facility] 100 mg 9-12 tablets by ity of tablet 00:00: mouth 00 every Medical other day. Branch hydrOXYzine 2021-0 Yes [id number] 25mg Take 1 [facility] 25 mg 9-12 capsule by ity of capsule 00:00: mouth (three) Medical times Branch daily as needed for Itching. allopurinoL 2021-0 Yes [id number] 50mg Take 0.5 [facility] 100 mg 9-12 tablets by ity of tablet 00:00: mouth [place] 00 every Medical other day. Branch hydrOXYzine 2021-0 Yes [id number] 25mg Take 1 [facility] 25 mg 9-12 capsule by ity of capsule 00:00: mouth (three) Medical times Branch daily as needed for Itching. allopurinoL 2021-0 Yes [id number] 50mg Take 0.5 [facility] 100 mg 9-12 tablets by ity of tablet 00:00: mouth [place] 00 every Medical other day. Branch hydrOXYzine 2-0 Yes [id number] 25mg Take 1 [facility] 25 mg 9-12 capsule by ity of capsule 00:00: mouth 3 (three) Medical times Branch daily as needed for Itching. allopurinoL 2022-0 Yes [id number] 50mg Take 0.5 [facility] 100 mg 9-12 tablets by ity of tablet 00:00: mouth [place] 00 every Medical other day. Branch hydrOXYzine 2-0 Yes [id number] 25mg Take 1 [facility] 25 mg 9-12 capsule by ity of capsule 00:00: mouth (three) Medical times Branch daily as needed for Itching. allopurinoL 2-0 Yes [id number] 50mg Take 0.5 [facility] 100 mg 9-12 tablets by ity of tablet 00:00: mouth [place] 00 every Medical other day. Branch hydrOXYzine 2-0 Yes [id number] 25mg Take 1 [facility] 25 mg 9-12 capsule by ity of capsule 00:00: mouth 3 (three) Medical times Branch daily as needed for Itching. allopurinoL 2-0 Yes [id number] 50mg Take 0.5 [facility] 100 mg 9-12 tablets by ity of tablet 00:00: mouth [place] 00 every Medical other day. Branch hydrOXYzine 2021-0 Yes [id number] 25mg Take 1 [facility] 25 mg 9-12 capsule by ity of capsule 00:00: mouth (three) Medical times Branch daily as needed for Itching. allopurinoL 2-0 Yes [id number] 50mg Take 0.5 [facility] 100 mg 9-12 tablets by ity of tablet 00:00: mouth 00 every Medical other day. Branch hydrOXYzine 2021-0 Yes [id number] 25mg Take 1 [facility] 25 mg 9-12 capsule by ity of capsule 00:00: mouth (three) Medical times Branch daily as needed for Itching. allopurinoL 2-0 Yes [id number] 50mg Take 0.5 [facility] 100 mg 9-12 tablets by ity of tablet 00:00: mouth [place] 00 every Medical other day. Branch hydrOXYzine 2-0 Yes [id number] 25mg Take 1 [facility] 25 mg 9-12 capsule by ity of capsule 00:00: mouth 3 (three) Medical times Branch daily as needed for Itching. allopurinoL 2022-0 Yes [id number] 50mg Take 0.5 [facility] 100 mg 9-12 tablets by ity of tablet 00:00: mouth [place] 00 every Medical other day. Branch hydrOXYzine 2-0 Yes [id number] 25mg Take 1 [facility] 25 mg 9-12 capsule by ity of capsule 00:00: mouth 3 (three) Medical times Branch daily as needed for Itching. allopurinoL 2-0 Yes [id number] 50mg Take 0.5 [facility] 100 mg 9-12 tablets by ity of tablet 00:00: mouth [place] 00 every Medical other day. Branch hydrOXYzine 2-0 Yes [id number] 25mg Take 1 [facility] 25 mg 9-12 capsule by ity of capsule 00:00: mouth 3 (three) Medical times Branch daily as needed for Itching. allopurinoL 2-0 Yes [id number] 50mg Take 0.5 [facility] 100 mg 9-12 tablets by ity of tablet 00:00: mouth [place] 00 every Medical other day. Branch hydrOXYzine 2021-0 Yes [id number] 25mg Take 1 [facility] 25 mg 9-12 capsule by ity of capsule 00:00: mouth 3 (three) Medical times Branch daily as needed for Itching. allopurinoL 2021-0 Yes [id number] 50mg Take 0.5 [facility] 100 mg 9-12 tablets by ity of tablet 00:00: mouth [place] 00 every Medical other day. Branch hydrOXYzine 2021-0 Yes [id number] 25mg Take 1 [facility] 25 mg 9-12 capsule by ity of capsule 00:00: mouth 3 (three) Medical times [place] daily as needed for Itching. allopurinoL 2021-0 Yes [id number] 50mg Take 0.5 [facility] 100 mg 9-12 tablets by ity of tablet 00:00: mouth [place] 00 every Medical other day. Branch allopurinoL 2021-0 Yes [id number] 50mg Take 0.5 [facility] 100 mg 9-12 tablets by ity of tablet 00:00: mouth [place] 00 every Medical other day. Branch allopurinoL 2-0 Yes [id number] 50mg Take 0.5 [facility] 100 mg 9-12 tablets by ity of tablet 00:00: mouth [place] 00 every Medical other day. Branch allopurinoL 2022-0 Yes [id number] 50mg Take 0.5 [facility] 100 mg 9-12 tablets by ity of tablet 00:00: mouth [place] 00 every Medical other day. Branch allopurinoL 2-0 Yes [id number] 50mg Take 0.5 [facility] 100 mg 9-12 tablets by ity of tablet 00:00: mouth [place] 00 every Medical other day. Branch allopurinoL 2022-0 Yes [id number] 50mg Take 0.5 [facility] 100 mg 9-12 tablets by ity of tablet 00:00: mouth [place] 00 every Medical other day. Branch allopurinoL 0 Yes [id number] 50mg Take 0.5 [facility] 100 mg 9-12 tablets by ity of tablet 00:00: mouth [place] 00 every Medical other day. Branch allopurinoL 2021-0 Yes [id number] 50mg Take 0.5 [facility] 100 mg 9-12 tablets by ity of tablet 00:00: mouth [place] 00 every Medical other day. Branch allopurinoL 0 Yes [id number] 50mg Take 0.5 [facility] 100 mg 9-12 tablets by ity of tablet 00:00: mouth [place] 00 every Medical other day. Branch allopurinoL 0 Yes [id number] 50mg Take 0.5 [facility] 100 mg 9-12 tablets by ity of tablet 00:00: mouth [place] 00 every Medical other day. Branch allopurinoL 2021-0 Yes [id number] 50mg Take 0.5 [facility] 100 mg 9-12 tablets by ity of tablet 00:00: mouth [place] 00 every Medical other day. Branch allopurinoL 0 Yes [id number] 50mg Take 0.5 [facility] 100 mg 9-12 tablets by ity of tablet 00:00: mouth [place] 00 every Medical other day. Branch allopurinoL 0 Yes [id number] 50mg Take 0.5 [facility] 100 mg 9-12 tablets by ity of tablet 00:00: mouth [place] 00 every Medical other day. Branch allopurinoL 2021-0 Yes [id number] 50mg Take 0.5 [facility] 100 mg 9-12 tablets by ity of tablet 00:00: mouth [place] 00 every Medical other day. Branch allopurinoL 2021-0 2022- No [id number] 50mg Take 0.5 [facility] 100 mg 9-12 01-05 tablets by ity of tablet 00:00: 00:00 mouth [place] 00 :00 every Medical other day. Branch allopurinoL 2021-0 3- No [id number] 50mg Take 0.5 [facility] 100 mg 9-12 01-05 tablets by ity of tablet 00:00: 00:00 mouth [place] 00 :00 every Medical other day. Branch allopurinoL 2021-0 2022- No [id number] 50mg Take 0.5 [facility] 100 mg 9-12 01-05 tablets by ity of tablet 00:00: 00:00 mouth [place] 00 :00 every Medical other day. [place] allopurinoL 2022- No [id number] 50mg Take 0.5 [facility] 100 mg 11-13 tablets by ity of tablet 00:00: 00:00 mouth [place] 00 :00 every Medical other day. [place] hydrOXYzine 2021- No [id number] 25mg Take 1 [facility] 25 mg 11-13 capsule by ity of capsule 00:00: 00:00 mouth 3 [place] 00 :00 (three) Medical times [place] daily as needed for Itching. hydrOXYzine 2021-2021- No 25mg Take 25 mg [...] [place] NASAL) 49 every Medical other day. [place] Patient takes afrin over the counter, takes every other day oxymetazoli 2021-0 Yes 1{puff} Use 1 Puff [facility] ne HCl 9-01 in each ity of (AFRIN 09:34: nostril [place] NASAL) 49 every Medical other day. [place] Patient takes afrin over the counter, takes every other day oxymetazoli 2-0 Yes 1{puff} Use 1 Puff [facility] ne HCl 9-01 in each ity of (AFRIN 09:34: nostril [place] NASAL) 49 every Medical other day. [place] Patient takes afrin over the counter, takes every other day oxymetazoli 2022-0 Yes 1{puff} Use 1 Puff [facility] ne HCl 9-01 in each ity of (AFRIN 09:34: nostril [place] NASAL) 49 every Medical other day. [place] Patient takes afrin over the counter, takes [...] by mouth ity of 09:34: in the [place] [address] morning. Medical Indication Branch s: reports kidney Dr Rx, ~2 mths ago bumetanide 2022-0 Yes 1mg Take 1 mg Un renetta 1 mg tablet 9-01 by mouth ity of 09:34: in the [place] [address] morning. Medical Indication Branch s: reports kidney Dr Rx, ~2 mths ago bumetanide 2022-0 Yes 1mg Take 1 mg Un renetta 1 mg tablet 9-01 by mouth ity of 09:34: in the [place] [address] morning. Medical Indication Branch s: reports kidney Dr Rx, ~2 mths ago bumetanide 2022-0 Yes 1mg Take 1 mg Un renetta 1 mg tablet 9-01 by mouth ity of 09:34: in the [place] [address] morning. Medical Indication Branch s: reports kidney Dr Rx, ~2 mths ago bumetanide 2022-0 Yes 1mg Take 1 mg Un renetta 1 mg tablet 9-01 by mouth ity of 09:34: in the [place] [address] morning. Medical Indication Branch s: reports kidney Dr Rx, ~2 mths ago bumetanide 2022-0 Yes 1mg Take 1 mg Un renetta 1 mg tablet 9-01 by mouth ity of 09:34: in the [place] [address] morning. Medical Indication Branch s: reports kidney Dr Rx, ~2 mths ago bumetanide 2022-0 Yes 1mg Take 1 mg Un renetta 1 mg tablet 9-01 by mouth ity of 09:34: in the [place] [address] morning. Medical Indication Branch s: reports kidney Dr Rx, ~2 mths ago bumetanide 2022-0 Yes 1mg Take 1 mg Un renetta 1 mg tablet 9-01 by mouth ity of 09:34: in the [place] [address] morning. Medical Indication Branch s: reports kidney Dr Rx, ~2 mths ago bumetanide 2022-0 Yes 1mg Take 1 mg Un renetta 1 mg tablet 9-01 by mouth ity of 09:34: in the [place] [address] morning. Medical Indication Branch s: reports kidney Dr Rx, ~2 mths ago bumetanide 2022-0 Yes 1mg Take 1 mg Un renetta 1 mg tablet 9-01 by mouth ity of 09:34: in the [place] [address] morning. Medical Indication Branch s: reports kidney Dr Rx, ~2 mths ago bumetanide 2022-0 Yes 1mg Take 1 mg Un renetta 1 mg tablet 9-01 by mouth ity of 09:34: in the [place] [address] morning. Medical Indication Branch s: reports kidney Dr Rx, ~2 mths ago bumetanide 2022-0 Yes 1mg Take 1 mg Un renetta 1 mg tablet 9-01 by mouth ity of 09:34: in the [place] [address] morning. Medical Indication Branch s: reports kidney Dr Rx, ~2 mths ago bumetanide 2022-0 Yes 1mg Take 1 mg Un renetta 1 mg tablet 9-01 by mouth ity of 09:34: in the [place] [address] morning. Medical Indication Branch s: reports kidney Dr Rx, ~2 mths ago bumetanide 2022-0 Yes 1mg Take 1 mg Un renetta 1 mg tablet 9-01 by mouth ity of 09:34: in the [place] [address] morning. Medical Indication Branch s: reports kidney Dr Rx, ~2 mths ago bumetanide 2022-0 Yes 1mg Take 1 mg Un renetta 1 mg tablet 9-01 by mouth ity of 09:34: in the [place] [address] morning. Medical Indication Branch s: reports kidney Dr Rx, ~2 mths ago bumetanide 2022-0 Yes 1mg Take 1 mg Un renetta 1 mg tablet 9-01 by mouth ity of 09:34: in the [place] [address] morning. Medical Indication Branch s: reports kidney Dr Rx, ~2 mths ago bumetanide 2022-0 Yes 1mg Take 1 mg Un renetta 1 mg tablet 9-01 by mouth ity of 09:34: in the [place] [address] morning. Medical Indication Branch s: reports kidney Dr Rx, ~2 mths ago bumetanide 2022-0 Yes 1mg Take 1 mg Un renetta 1 mg tablet 9-01 by mouth ity of 09:34: in the [place] [address] morning. Medical Indication Branch s: reports kidney Dr Rx, ~2 mths ago bumetanide 2022-0 Yes 1mg Take 1 mg Un renetta 1 mg tablet 9-01 by mouth ity of 09:34: in the [place] [address] morning. Medical Indication Branch s: reports kidney Dr Rx, ~2 mths ago bumetanide 2022-0 Yes 1mg Take 1 mg Un renetta 1 mg tablet 9-01 by mouth ity of 09:34: in the [place] [address] morning. Medical Indication Branch s: reports kidney Dr Rx, ~2 mths ago bumetanide 2022-0 Yes 1mg Take 1 mg Un renetta 1 mg tablet 9-01 by mouth ity of 09:34: in the [place] [address] morning. Medical Indication Branch s: reports kidney Dr Rx, ~2 mths ago bumetanide 2021-0 Yes 1mg Take 1 mg Un renetta 1 mg tablet 9-01 by mouth ity of 09:34: in the [place] [address] morning. Medical Indication Branch s: reports kidney Dr Rx, ~2 mths ago bumetanide 2021-0 Yes 1mg Take 1 mg Un renetta 1 mg tablet 9-01 by mouth ity of 09:34: in the [place] [address] morning. Medical Indication Branch s: reports kidney Dr Rx, ~2 mths ago bumetanide 2021-0 Yes 1mg Take 1 mg Un renetta 1 mg tablet 9-01 by mouth ity of 09:34: in the [place] [address] morning. Medical Indication Branch s: reports kidney Dr Rx, ~2 mths ago bumetanide 2021-0 Yes 1mg Take 1 mg Un renetta 1 mg tablet 9-01 by mouth ity of 09:34: in the [place] [address] morning. Medical Indication Branch s: reports kidney Dr Rx, ~2 mths ago bumetanide 2021-0 Yes 1mg Take 1 mg Un renetta 1 mg tablet 9-01 by mouth ity of 09:34: in the [place] [address] morning. Medical Indication Branch s: reports kidney Dr Rx, ~2 mths ago bumetanide 2021-0 Yes 1mg Take 1 mg Un renetta 1 mg tablet 9-01 by mouth ity of 09:34: in the [place] [address] morning. Medical Indication Branch s: reports kidney Dr Rx, ~2 mths ago bumetanide 2021-0 Yes 1mg Take 1 mg Un renetta 1 mg tablet 9-01 by mouth ity of 09:34: in the [place] [address] morning. Medical Indication Branch s: reports kidney Dr Rx, ~2 mths ago Magnesium 2021-0 Yes [id number] 400mg Take 400 [facility] Oxide 420 8-24 [...] acute pain, chronic pain Magnesium 2-0 Yes [id number] 400mg Take 400 [facility] Oxide 420 8-24 [...] acute pain, chronic pain Magnesium 2-0 Yes [id number] 400mg Take 400 [facility] Oxide 420 8-24 [...] acute pain, chronic pain Magnesium 2-0 Yes [id number] 400mg Take 400 [facility] Oxide 420 8-24 [...] acute pain, chronic pain Magnesium 2-0 Yes [id number] 400mg Take 400 [facility] Oxide 420 8-24 [...] acute pain, chronic pain Magnesium 2-0 Yes [id number] 400mg Take 400 [facility] Oxide 420 8-24 [...] acute pain, chronic pain Magnesium 2-0 Yes [id number] 400mg Take 400 [facility] Oxide 420 8-24 [...] acute pain, chronic pain Magnesium 2021-0 Yes [id number] 400mg Take 400 [facility] Oxide 420 8-24 [...] acute pain, chronic pain Magnesium 2-0 Yes [id number] 400mg Take 400 [facility] Oxide 420 8-24 [...] acute pain, chronic pain Magnesium 2-0 Yes [id number] 400mg Take 400 [facility] Oxide 420 8-24 [...] acute pain, chronic pain Magnesium 2021-0 Yes [id number] 400mg Take 400 [facility] Oxide 420 8-24 [...] acute pain, chronic pain Magnesium 2021-0 Yes [id number] 400mg Take 400 [facility] Oxide 420 8-24 [...] acute pain, chronic pain Magnesium 2021-0 Yes [id number] 400mg Take 400 [facility] Oxide 420 8-24 [...] acute pain, chronic pain Magnesium 2-0 Yes [id number] 400mg Take 400 [facility] Oxide 420 8-24 [...] acute pain, chronic pain Magnesium 2-0 Yes [id number] 400mg Take 400 [facility] Oxide 420 8-24 mg by ity of mg Tab 00:00: mouth [place] 00 daily. Medical Branch acetaminoph Yes 2745 1{tbl} Take 1 Un renetta en-codeine 8-24 tablet by ity of (TYLENOL-CO 00:00: mouth [place] DEINE #3) 00 every 6 Medical 300-30 mg (six) Branch tablet hours as needed for Pain (scale 7-10). Indication s: acute pain, chronic pain Magnesium 2021-0 Yes [id number] 400mg Take 400 [facility] Oxide 420 8-24 mg by ity of mg Tab 00:00: mouth [place] 00 daily. Medical Branch acetaminoph Yes 2745 1{tbl} Take 1 Un renetta en-codeine 8-24 tablet by ity of (TYLENOL-CO 00:00: mouth [place] DEINE #3) 00 every 6 Medical 300-30 mg (six) Branch tablet hours as needed for Pain (scale 7-10). Indication s: acute pain, chronic pain Magnesium 2021-0 Yes [id number] 400mg Take 400 [facility] Oxide 420 8-24 [...] acute pain, chronic pain Magnesium 2021-0 Yes [id number] 400mg Take 400 [facility] Oxide 420 8-24 [...] acute pain, chronic pain Magnesium 2-0 Yes [id number] 400mg Take 400 [facility] Oxide 420 8-24 [...] acute pain, chronic pain Magnesium 2-0 Yes [id number] 400mg Take 400 [facility] Oxide 420 8-24 [...] acute pain, chronic pain Magnesium 2-0 Yes [id number] 400mg Take 400 [facility] Oxide 420 8-24 [...] acute pain, chronic pain Magnesium 2-0 Yes [id number] 400mg Take 400 [facility] Oxide 420 8-24 [...] acute pain, chronic pain Magnesium 2021-0 Yes [id number] 400mg Take 400 [facility] Oxide 420 8-24 [...] acute pain, chronic pain Magnesium 2021-0 Yes [id number] 400mg Take 400 [facility] Oxide 420 8-24 mg by ity of mg Tab 00:00: mouth 00 daily. Medical Branch Magnesium 2021-0 Yes [id number] 400mg Take 400 [facility] Oxide 420 8-24 mg by [facility] of mg Tab 00:00: mouth 00 daily. [facility] Magnesium 2021-0 Yes [id number] 400mg Take 400 [facility] Oxide 420 8-24 mg by [facility] of mg Tab 00:00: mouth 00 daily. [facility] Magnesium 2021-0 Yes [id number] 400mg Take 400 [facility] Oxide 420 8-24 mg by [facility] mg Tab 00:00: mouth 00 daily. [facility] Magnesium 2021-0 Yes [id number] 400mg Take 400 [facility] Oxide 420 8-24 mg by [facility] of mg Tab 00:00: mouth [place] 00 daily. [facility] Magnesium 2021-0 Yes [id number] 400mg Take 400 [facility] Oxide 420 8-24 mg by [facility] of mg Tab 00:00: mouth 00 daily. [facility] Magnesium 2021-0 Yes [id number] 400mg Take 400 [facility] Oxide 420 8-24 mg by [facility] of mg Tab 00:00: mouth [place] 00 daily. [facility] Magnesium 2021-0 Yes [id number] 400mg Take 400 [facility] Oxide 420 8-24 mg by [facility] of mg Tab 00:00: mouth [place] 00 daily. [facility] Magnesium 2021-0 Yes [id number] 400mg Take 400 [facility] Oxide 420 8-24 mg by [facility] of mg Tab 00:00: mouth [place] 00 daily. [facility] Magnesium 2021-0 Yes [id number] 400mg Take 400 [facility] Oxide 420 8-24 mg by [facility] of mg Tab 00:00: mouth [place] 00 daily. [facility] Magnesium 2022-0 Yes [id number] 400mg Take 400 [facility] Oxide 420 8-24 mg by [facility] of mg Tab 00:00: mouth [place] 00 daily. [facility] Magnesium 2-0 Yes [id number] 400mg Take 400 [facility] Oxide 420 8-24 mg by [facility] of mg Tab 00:00: mouth [place] 00 daily. [facility] Magnesium 2-0 Yes [id number] 400mg Take 400 [facility] Oxide 420 8-24 mg by [facility] of mg Tab 00:00: mouth [place] 00 daily. [facility] Magnesium 2-0 Yes [id number] 400mg Take 400 [facility] Oxide 420 8-24 mg by [facility] of mg Tab 00:00: mouth [place] 00 daily. [facility] Magnesium 2-0 Yes [id number] 400mg Take 400 [facility] Oxide 420 8-24 mg by [facility] of mg Tab 00:00: mouth [place] 00 daily. [facility] Magnesium 2021-0 Yes [id number] 400mg Take 400 [facility] Oxide 420 8-24 mg by [facility] of mg Tab 00:00: mouth [place] 00 daily. [facility] Magnesium 2021-0 Yes [id number] 400mg Take 400 [facility] Oxide 420 8-24 mg by [facility] of mg Tab 00:00: mouth [place] 00 daily. [facility] Magnesium 2021-0 Yes [id number] 400mg Take 400 [facility] Oxide 420 8-24 mg by [facility] of mg Tab 00:00: mouth [place] 00 daily. [facility] Magnesium 2021-0 Yes [id number] 400mg Take 400 [facility] Oxide 420 8-24 mg by [facility] of mg Tab 00:00: mouth [place] 00 daily. [facility] Magnesium 2-0 Yes [id number] 400mg Take 400 [facility] Oxide 420 8-24 mg by [facility] of mg Tab 00:00: mouth [place] 00 daily. [facility] Magnesium 2-0 Yes [id number] 400mg Take 400 [facility] Oxide 420 8-24 mg by [facility] of mg Tab 00:00: mouth [place] 00 daily. [facility] Magnesium 2-0 Yes [id number] 400mg Take 400 [facility] Oxide 420 8-24 mg by [facility] of mg Tab 00:00: mouth [place] 00 daily. [facility] Magnesium 2-0 Yes [id number] 400mg Take 400 [facility] Oxide 420 8-24 mg by [facility] of mg Tab 00:00: mouth [place] 00 daily. [facility] Magnesium 2-0 Yes [id number] 400mg Take 400 [facility] Oxide 420 8-24 mg by [facility] of mg Tab 00:00: mouth [place] 00 daily. [facility] Magnesium 2-0 Yes [id number] 400mg Take 400 [facility] Oxide 420 8-24 mg by [facility] of mg Tab 00:00: mouth [place] 00 daily. [facility] Magnesium 2-0 Yes [id number] 400mg Take 400 [facility] Oxide 420 8-24 mg by [facility] of mg Tab 00:00: mouth [place] 00 daily. [facility] Magnesium 2-0 Yes [id number] 400mg Take 400 [facility] Oxide 420 8-24 mg by [facility] of mg Tab 00:00: mouth [place] 00 daily. [facility] Magnesium 2-0 Yes [id number] 400mg Take 400 [facility] Oxide 420 8-24 mg by [facility] of mg Tab 00:00: mouth [place] 00 daily. [facility] Magnesium 2-0 Yes [id number] 400mg Take 400 [facility] Oxide 420 8-24 mg by [facility] of mg Tab 00:00: mouth [place] 00 daily. [facility] Magnesium 2-0 Yes [id number] 400mg Take 400 [facility] Oxide 420 8-24 mg by [facility] of mg Tab 00:00: mouth 00 daily. [facility] Magnesium 2-0 Yes [id number] 400mg Take 400 [facility] Oxide 420 8-24 mg by [facility] of mg Tab 00:00: mouth 00 daily. [facility] Magnesium 2-0 Yes [id number] 400mg Take 400 [facility] Oxide 420 8-24 mg by [facility] of mg Tab 00:00: mouth [place] 00 daily. [facility] Magnesium 2-0 Yes [id number] 400mg Take 400 [facility] Oxide 420 8-24 mg by [facility] of mg Tab 00:00: mouth 00 daily. [facility] Magnesium 2-0 Yes [id number] 400mg Take 400 [facility] Oxide 420 8-24 mg by [facility] of mg Tab 00:00: mouth [place] 00 daily. [facility] Magnesium 2-0 Yes [id number] 400mg Take 400 [facility] Oxide 420 8-24 mg by [facility] of mg Tab 00:00: mouth [place] 00 daily. [facility] Magnesium 2-0 Yes [id number] 400mg Take 400 [facility] Oxide 420 8-24 mg by [facility] of mg Tab 00:00: mouth [place] 00 daily. [facility] Magnesium 2-0 Yes [id number] 400mg Take 400 [facility] Oxide 420 8-24 mg by [facility] of mg Tab 00:00: mouth [place] 00 daily. [facility] Magnesium 2022-0 Yes [id number] 400mg Take 400 [facility] Oxide 420 8-24 mg by [facility] of mg Tab 00:00: mouth [place] 00 daily. [facility] Magnesium 2-0 Yes [id number] 400mg Take 400 [facility] Oxide 420 8-24 mg by [facility] of mg Tab 00:00: mouth [place] 00 daily. [facility] Magnesium 2-0 Yes [id number] 400mg Take 400 [facility] Oxide 420 8-24 mg by [facility] of mg Tab 00:00: mouth [place] 00 daily. [facility] Magnesium 2-0 Yes [id number] 400mg Take 400 [facility] Oxide 420 8-24 mg by [facility] of mg Tab 00:00: mouth [place] 00 daily. [facility] Magnesium 2-0 Yes [id number] 400mg Take 400 [facility] Oxide 420 8-24 mg by [facility] of mg Tab 00:00: mouth [place] 00 daily. [facility] Magnesium 2021-0 Yes [id number] 400mg Take 400 [facility] Oxide 420 8-24 mg by [facility] of mg Tab 00:00: mouth 00 daily. [facility] Magnesium 2021-0 Yes [id number] 400mg Take 400 [facility] Oxide 420 8-24 mg by [facility] of mg Tab 00:00: mouth [place] 00 daily. [facility] Magnesium 2021-0 Yes [id number] 400mg Take 400 [facility] Oxide 420 8-24 mg by [facility] of mg Tab 00:00: mouth [place] 00 daily. [facility] Magnesium 2-0 Yes [id number] 400mg Take 400 [facility] Oxide 420 8-24 mg by [facility] of mg Tab 00:00: mouth [place] 00 daily. [facility] Magnesium 2-0 Yes [id number] 400mg Take 400 [facility] Oxide 420 8-24 mg by [facility] of mg Tab 00:00: mouth [place] 00 daily. [facility] Magnesium 2-0 Yes [id number] 400mg Take 400 [facility] Oxide 420 8-24 mg by [facility] of mg Tab 00:00: mouth [place] 00 daily. [facility] Magnesium 2-0 Yes [id number] 400mg Take 400 [facility] Oxide 420 8-24 mg by [facility] of mg Tab 00:00: mouth [place] 00 daily. [facility] Magnesium 2-0 Yes [id number] 400mg Take 400 [facility] Oxide 420 8-24 mg by [facility] of mg Tab 00:00: mouth [place] 00 daily. [facility] Magnesium 2-0 Yes [id number] 400mg Take 400 [facility] Oxide 420 8-24 mg by [facility] of mg Tab 00:00: mouth [place] 00 daily. [facility] Magnesium 2021-0 Yes [id number] 400mg Take 400 [facility] Oxide 420 8-24 mg by [facility] of mg Tab 00:00: mouth 00 daily. [facility] Magnesium 2021-0 Yes [id number] 400mg Take 400 [facility] Oxide 420 8-24 mg by [facility] of mg Tab 00:00: mouth [place] 00 daily. [facility] Magnesium 2021-0 Yes [id number] 400mg Take 400 [facility] Oxide 420 8-24 mg by [facility] of mg Tab 00:00: mouth [place] 00 daily. [facility] acetaminoph 0 202- No 2745 1{tbl} Take 1 [facility] en-codeine 8-24 10-21 tablet by [facility] of (TYLENOL-CO 00:00: 00:00 [place] DEINE #3) 00 :00 every 6 Medical 300-30 mg (six) Branch tablet hours as needed for Pain (scale 7-10). Indication s: acute pain, chronic pain triamcinolo 2021-0 Yes [id number] Apply to [facility] ne 8-10 area(s) 2 ity of acetonide 00:00: (two) [place] 0.1 % cream 00 times Medical daily. Branch Clobetasol 2021-0 Yes [id number] Apply to [facility] Propionate 8-10 area(s) 2 ity of 0.05 % 00:00: (two) [place] lotion 00 times Medical daily as Branch needed for Rash or Itching. triamcinolo 2021-0 Yes [id number] Apply to [facility] ne 8-10 area(s) 2 ity of acetonide 00:00: (two) [place] 0.1 % cream 00 times Medical daily. Branch Clobetasol 2021-0 Yes [id number] Apply to [facility] Propionate 8-10 area(s) 2 ity of 0.05 % 00:00: (two) [place] lotion 00 times Medical daily as Branch needed for Rash or Itching. triamcinolo 2021-0 Yes [id number] Apply to [facility] ne 8-10 area(s) 2 ity of acetonide 00:00: (two) [place] 0.1 % cream 00 times Medical daily. Branch Clobetasol 2021-0 Yes [id number] Apply to [facility] Propionate 8-10 area(s) 2 ity of 0.05 % 00:00: (two) [place] lotion 00 times Medical daily as Branch needed for Rash or Itching. triamcinolo 2022-0 Yes [id number] Apply to [facility] ne 8-10 area(s) 2 ity of acetonide 00:00: (two) [place] 0.1 % cream 00 times Medical daily. Branch Clobetasol 2022-0 Yes [id number] Apply to [facility] Propionate 8-10 area(s) 2 ity of 0.05 % 00:00: (two) [place] lotion 00 times Medical daily as Branch needed for Rash or Itching. triamcinolo 2022-0 Yes [id number] Apply to [facility] ne 8-10 area(s) 2 ity of acetonide 00:00: (two) [place] 0.1 % cream 00 times Medical daily. Branch Clobetasol 2022-0 Yes [id number] Apply to [facility] Propionate 8-10 area(s) 2 ity of 0.05 % 00:00: (two) [place] lotion 00 times Medical daily as Branch needed for Rash or Itching. triamcinolo 2022-0 Yes [id number] Apply to [facility] ne 8-10 area(s) 2 ity of acetonide 00:00: (two) [place] 0.1 % cream 00 times Medical daily. Branch Clobetasol 2022-0 Yes [id number] Apply to [facility] Propionate 8-10 area(s) 2 ity of 0.05 % 00:00: (two) [place] lotion 00 times Medical daily as Branch needed for Rash or Itching. triamcinolo 2022-0 Yes [id number] Apply to [facility] ne 8-10 area(s) 2 ity of acetonide 00:00: (two) [place] 0.1 % cream 00 times Medical daily. Branch Clobetasol 2022-0 Yes [id number] Apply to [facility] Propionate 8-10 area(s) 2 ity of 0.05 % 00:00: (two) [place] lotion 00 times Medical daily as Branch needed for Rash or Itching. triamcinolo 2022-0 Yes [id number] Apply to [facility] ne 8-10 area(s) 2 ity of acetonide 00:00: (two) [place] 0.1 % cream 00 times Medical daily. Branch Clobetasol 2022-0 Yes [id number] Apply to [facility] Propionate 8-10 area(s) 2 ity of 0.05 % 00:00: (two) [place] lotion 00 times Medical daily as Branch needed for Rash or Itching. triamcinolo 2022-0 Yes [id number] Apply to [facility] ne 8-10 area(s) 2 ity of acetonide 00:00: (two) [place] 0.1 % cream 00 times Medical daily. Branch Clobetasol 2022-0 Yes [id number] Apply to [facility] Propionate 8-10 area(s) 2 ity of 0.05 % 00:00: (two) [place] lotion 00 times Medical daily as Branch needed for Rash or Itching. triamcinolo 2022-0 Yes [id number] Apply to [facility] ne 8-10 area(s) 2 ity of acetonide 00:00: (two) [place] 0.1 % cream 00 times Medical daily. Branch Clobetasol 2022-0 Yes [id number] Apply to [facility] Propionate 8-10 area(s) 2 ity of 0.05 % 00:00: (two) [place] lotion 00 times Medical daily as Branch needed for Rash or Itching. triamcinolo 2022-0 Yes [id number] Apply to [facility] ne 8-10 area(s) 2 ity of acetonide 00:00: (two) [place] 0.1 % cream 00 times Medical daily. Branch Clobetasol 2022-0 Yes [id number] Apply to [facility] Propionate 8-10 area(s) 2 ity of 0.05 % 00:00: (two) [place] lotion 00 times Medical daily as Branch needed for Rash or Itching. triamcinolo 2022-0 Yes [id number] Apply to [facility] ne 8-10 area(s) 2 ity of acetonide 00:00: (two) [place] 0.1 % cream 00 times Medical daily. Branch Clobetasol 2022-0 Yes [id number] Apply to [facility] Propionate 8-10 area(s) 2 ity of 0.05 % 00:00: (two) [place] lotion 00 times Medical daily as Branch needed for Rash or Itching. triamcinolo 2022-0 Yes [id number] Apply to [facility] ne 8-10 area(s) 2 ity of acetonide 00:00: (two) [place] 0.1 % cream 00 times Medical daily. Branch Clobetasol 2022-0 Yes [id number] Apply to [facility] Propionate 8-10 area(s) 2 ity of 0.05 % 00:00: (two) [place] lotion 00 times Medical daily as Branch needed for Rash or Itching. triamcinolo 2022-0 Yes [id number] Apply to [facility] ne 8-10 area(s) 2 ity of acetonide 00:00: (two) [place] 0.1 % cream 00 times Medical daily. Branch Clobetasol 2022-0 Yes [id number] Apply to [facility] Propionate 8-10 area(s) 2 ity of 0.05 % 00:00: (two) [place] lotion 00 times Medical daily as Branch needed for Rash or Itching. triamcinolo 2022-0 Yes [id number] Apply to [facility] ne 8-10 area(s) 2 ity of acetonide 00:00: (two) [place] 0.1 % cream 00 times Medical daily. Branch Clobetasol 2022-0 Yes [id number] Apply to [facility] Propionate 8-10 area(s) 2 ity of 0.05 % 00:00: (two) [place] lotion 00 times Medical daily as Branch needed for Rash or Itching. triamcinolo 2022-0 Yes [id number] Apply to [facility] ne 8-10 area(s) 2 ity of acetonide 00:00: (two) [place] 0.1 % cream 00 times Medical daily. Branch Clobetasol 2022-0 Yes [id number] Apply to [facility] Propionate 8-10 area(s) 2 ity of 0.05 % 00:00: (two) [place] lotion 00 times Medical daily as Branch needed for Rash or Itching. triamcinolo 2022-0 Yes [id number] Apply to [facility] ne 8-10 area(s) 2 ity of acetonide 00:00: (two) [place] 0.1 % cream 00 times Medical daily. Branch Clobetasol 2022-0 Yes [id number] Apply to [facility] Propionate 8-10 area(s) 2 ity of 0.05 % 00:00: (two) [place] lotion 00 times Medical daily as Branch needed for Rash or Itching. triamcinolo 2022-0 Yes [id number] Apply to [facility] ne 8-10 area(s) 2 ity of acetonide 00:00: (two) [place] 0.1 % cream 00 times Medical daily. Branch Clobetasol 2022-0 Yes [id number] Apply to [facility] Propionate 8-10 area(s) 2 ity of 0.05 % 00:00: (two) [place] lotion 00 times Medical daily as Branch needed for Rash or Itching. triamcinolo 2022-0 Yes [id number] Apply to [facility] ne 8-10 area(s) 2 ity of acetonide 00:00: (two) [place] 0.1 % cream 00 times Medical daily. Branch Clobetasol 2022-0 Yes [id number] Apply to [facility] Propionate 8-10 area(s) 2 ity of 0.05 % 00:00: (two) [place] lotion 00 times Medical daily as Branch needed for Rash or Itching. triamcinolo 2022-0 Yes [id number] Apply to [facility] ne 8-10 area(s) 2 ity of acetonide 00:00: (two) [place] 0.1 % cream 00 times Medical daily. Branch Clobetasol 2022-0 Yes [id number] Apply to [facility] Propionate 8-10 area(s) 2 ity of 0.05 % 00:00: (two) [place] lotion 00 times Medical daily as Branch needed for Rash or Itching. triamcinolo 2022-0 Yes [id number] Apply to [facility] ne 8-10 area(s) 2 ity of acetonide 00:00: (two) [place] 0.1 % cream 00 times Medical daily. Branch Clobetasol 2022-0 Yes [id number] Apply to [facility] Propionate 8-10 area(s) 2 ity of 0.05 % 00:00: (two) [place] lotion 00 times Medical daily as Branch needed for Rash or Itching. triamcinolo 2022-0 Yes [id number] Apply to [facility] ne 8-10 area(s) 2 ity of acetonide 00:00: (two) [place] 0.1 % cream 00 times Medical daily. Branch Clobetasol 2022-0 Yes [id number] Apply to [facility] Propionate 8-10 area(s) 2 ity of 0.05 % 00:00: (two) [place] lotion 00 times Medical daily as Branch needed for Rash or Itching. triamcinolo 2022-0 Yes [id number] Apply to [facility] ne 8-10 area(s) 2 ity of acetonide 00:00: (two) [place] 0.1 % cream 00 times Medical daily. Branch Clobetasol 2022-0 Yes [id number] Apply to [facility] Propionate 8-10 area(s) 2 ity of 0.05 % 00:00: (two) [place] lotion 00 times Medical daily as Branch needed for Rash or Itching. triamcinolo 2022-0 Yes [id number] Apply to [facility] ne 8-10 area(s) 2 ity of acetonide 00:00: (two) [place] 0.1 % cream 00 times Medical daily. Branch Clobetasol 2022-0 Yes [id number] Apply to [facility] Propionate 8-10 area(s) 2 ity of 0.05 % 00:00: (two) [place] lotion 00 times Medical daily as Branch needed for Rash or Itching. triamcinolo 2022-0 Yes [id number] Apply to [facility] ne 8-10 area(s) 2 ity of acetonide 00:00: (two) [place] 0.1 % cream 00 times Medical daily. Branch Clobetasol 2022-0 Yes [id number] Apply to [facility] Propionate 8-10 area(s) 2 ity of 0.05 % 00:00: (two) [place] lotion 00 times Medical daily as Branch needed for Rash or Itching. triamcinolo 2022-0 Yes [id number] Apply to [facility] ne 8-10 area(s) 2 ity of acetonide 00:00: (two) [place] 0.1 % cream 00 times Medical daily. Branch Clobetasol 2022-0 Yes [id number] Apply to [facility] Propionate 8-10 area(s) 2 ity of 0.05 % 00:00: (two) [place] lotion 00 times Medical daily as Branch needed for Rash or Itching. triamcinolo 2022-0 Yes [id number] Apply to [facility] ne 8-10 area(s) 2 ity of acetonide 00:00: (two) [place] 0.1 % cream 00 times Medical daily. Branch Clobetasol 2022-0 Yes [id number] Apply to [facility] Propionate 8-10 area(s) 2 ity of 0.05 % 00:00: (two) [place] lotion 00 times Medical daily as Branch needed for Rash or Itching. triamcinolo 2022-0 Yes [id number] Apply to [facility] ne 8-10 area(s) 2 ity of acetonide 00:00: (two) [place] 0.1 % cream 00 times Medical daily. Branch Clobetasol 2022-0 Yes [id number] Apply to [facility] Propionate 8-10 area(s) 2 ity of 0.05 % 00:00: (two) [place] lotion 00 times Medical daily as Branch needed for Rash or Itching. triamcinolo 2022-0 Yes [id number] Apply to [facility] ne 8-10 area(s) 2 ity of acetonide 00:00: (two) [place] 0.1 % cream 00 times Medical daily. Branch Clobetasol 2022-0 Yes [id number] Apply to [facility] Propionate 8-10 area(s) 2 ity of 0.05 % 00:00: (two) [place] lotion 00 times Medical daily as Branch needed for Rash or Itching. triamcinolo 2022-0 Yes [id number] Apply to [facility] ne 8-10 area(s) 2 ity of acetonide 00:00: (two) [place] 0.1 % cream 00 times Medical daily. Branch Clobetasol 2022-0 Yes [id number] Apply to [facility] Propionate 8-10 area(s) 2 ity of 0.05 % 00:00: (two) [place] lotion 00 times Medical daily as Branch needed for Rash or Itching. triamcinolo 2022-0 Yes [id number] Apply to [facility] ne 8-10 area(s) 2 ity of acetonide 00:00: (two) [place] 0.1 % cream 00 times Medical daily. Branch Clobetasol 2022-0 Yes [id number] Apply to [facility] Propionate 8-10 area(s) 2 ity of 0.05 % 00:00: (two) [place] lotion 00 times Medical daily as Branch needed for Rash or Itching. triamcinolo 2022-0 Yes [id number] Apply to [facility] ne 8-10 area(s) 2 ity of acetonide 00:00: (two) [place] 0.1 % cream 00 times Medical daily. Branch Clobetasol 2022-0 Yes [id number] Apply to [facility] Propionate 8-10 area(s) 2 ity of 0.05 % 00:00: (two) [place] lotion 00 times Medical daily as Branch needed for Rash or Itching. triamcinolo 2022-0 Yes [id number] Apply to [facility] ne 8-10 area(s) 2 ity of acetonide 00:00: (two) [place] 0.1 % cream 00 times Medical daily. Branch Clobetasol 2022-0 Yes [id number] Apply to [facility] Propionate 8-10 area(s) 2 ity of 0.05 % 00:00: (two) [place] lotion 00 times Medical daily as Branch needed for Rash or Itching. triamcinolo 2022-0 Yes [id number] Apply to [facility] ne 8-10 area(s) 2 ity of acetonide 00:00: (two) [place] 0.1 % cream 00 times Medical daily. Branch Clobetasol 2022-0 Yes [id number] Apply to [facility] Propionate 8-10 area(s) 2 ity of 0.05 % 00:00: (two) [place] lotion 00 times Medical daily as Branch needed for Rash or Itching. triamcinolo 2022-0 Yes [id number] Apply to [facility] ne 8-10 area(s) 2 ity of acetonide 00:00: (two) [place] 0.1 % cream 00 times Medical daily. Branch Clobetasol 2022-0 Yes [id number] Apply to [facility] Propionate 8-10 area(s) 2 ity of 0.05 % 00:00: (two) [place] lotion 00 times Medical daily as Branch needed for Rash or Itching. triamcinolo 2022-0 Yes [id number] Apply to [facility] ne 8-10 area(s) 2 ity of acetonide 00:00: (two) [place] 0.1 % cream 00 times Medical daily. Branch Clobetasol 2022-0 Yes [id number] Apply to [facility] Propionate 8-10 area(s) 2 ity of 0.05 % 00:00: (two) [place] lotion 00 times Medical daily as Branch needed for Rash or Itching. triamcinolo 2022-0 Yes [id number] Apply to [facility] ne 8-10 area(s) 2 ity of acetonide 00:00: (two) [place] 0.1 % cream 00 times Medical daily. Branch Clobetasol 2022-0 Yes [id number] Apply to [facility] Propionate 8-10 area(s) 2 ity of 0.05 % 00:00: (two) [place] lotion 00 times Medical daily as Branch needed for Rash or Itching. triamcinolo 2022-0 Yes [id number] Apply to [facility] ne 8-10 area(s) 2 ity of acetonide 00:00: (two) [place] 0.1 % cream 00 times Medical daily. Branch Clobetasol 2022-0 Yes [id number] Apply to [facility] Propionate 8-10 area(s) 2 ity of 0.05 % 00:00: (two) [place] lotion 00 times Medical daily as Branch needed for Rash or Itching. triamcinolo 2022-0 Yes [id number] Apply to [facility] ne 8-10 area(s) 2 ity of acetonide 00:00: (two) [place] 0.1 % cream 00 times Medical daily. Branch Clobetasol 2022-0 Yes [id number] Apply to [facility] Propionate 8-10 area(s) 2 ity of 0.05 % 00:00: (two) [place] lotion 00 times Medical daily as Branch needed for Rash or Itching. triamcinolo 2022-0 Yes [id number] Apply to [facility] ne 8-10 area(s) 2 ity of acetonide 00:00: (two) [place] 0.1 % cream 00 times Medical daily. Branch Clobetasol 2022-0 Yes [id number] Apply to [facility] Propionate 8-10 area(s) 2 ity of 0.05 % 00:00: (two) [place] lotion 00 times Medical daily as Branch needed for Rash or Itching. triamcinolo 2022-0 Yes [id number] Apply to [facility] ne 8-10 area(s) 2 ity of acetonide 00:00: (two) [place] 0.1 % cream 00 times Medical daily. Branch Clobetasol 2022-0 Yes [id number] Apply to [facility] Propionate 8-10 area(s) 2 ity of 0.05 % 00:00: (two) [place] lotion 00 times Medical daily as Branch needed for Rash or Itching. triamcinolo 2022-0 Yes [id number] Apply to [facility] ne 8-10 area(s) 2 ity of acetonide 00:00: (two) [place] 0.1 % cream 00 times Medical daily. Branch Clobetasol 2022-0 Yes [id number] Apply to [facility] Propionate 8-10 area(s) 2 ity of 0.05 % 00:00: (two) [place] lotion 00 times Medical daily as Branch needed for Rash or Itching. triamcinolo 2022-0 Yes [id number] Apply to [facility] ne 8-10 area(s) 2 ity of acetonide 00:00: (two) [place] 0.1 % cream 00 times Medical daily. Branch Clobetasol 2022-0 Yes [id number] Apply to [facility] Propionate 8-10 area(s) 2 ity of 0.05 % 00:00: (two) [place] lotion 00 times Medical daily as Branch needed for Rash or Itching. triamcinolo 2022-0 Yes [id number] Apply to [facility] ne 8-10 area(s) 2 ity of acetonide 00:00: (two) [place] 0.1 % cream 00 times Medical daily. Branch Clobetasol 2022-0 Yes [id number] Apply to [facility] Propionate 8-10 area(s) 2 ity of 0.05 % 00:00: (two) [place] lotion 00 times Medical daily as Branch needed for Rash or Itching. triamcinolo 2022-0 Yes [id number] Apply to [facility] ne 8-10 area(s) 2 ity of acetonide 00:00: (two) [place] 0.1 % cream 00 times Medical daily. Branch Clobetasol 2022-0 Yes [id number] Apply to [facility] Propionate 8-10 area(s) 2 ity of 0.05 % 00:00: (two) [place] lotion 00 times Medical daily as Branch needed for Rash or Itching. triamcinolo 2022-0 Yes [id number] Apply to [facility] ne 8-10 area(s) 2 ity of acetonide 00:00: (two) [place] 0.1 % cream 00 times Medical daily. Branch Clobetasol 2022-0 Yes [id number] Apply to [facility] Propionate 8-10 area(s) 2 ity of 0.05 % 00:00: (two) [place] lotion 00 times Medical daily as Branch needed for Rash or Itching. triamcinolo 2022-0 Yes [id number] Apply to [facility] ne 8-10 area(s) 2 ity of acetonide 00:00: (two) [place] 0.1 % cream 00 times Medical daily. Branch Clobetasol 2022-0 Yes [id number] Apply to [facility] Propionate 8-10 area(s) 2 ity of 0.05 % 00:00: (two) [place] lotion 00 times Medical daily as Branch needed for Rash or Itching. triamcinolo 2022-0 Yes [id number] Apply to [facility] ne 8-10 area(s) 2 ity of acetonide 00:00: (two) [place] 0.1 % cream 00 times Medical daily. Branch Clobetasol 2022-0 Yes [id number] Apply to [facility] Propionate 8-10 area(s) 2 ity of 0.05 % 00:00: (two) [place] lotion 00 times Medical daily as Branch needed for Rash or Itching. triamcinolo 2022-0 Yes [id number] Apply to [facility] ne 8-10 area(s) 2 ity of acetonide 00:00: (two) [place] 0.1 % cream 00 times Medical daily. Branch Clobetasol 2022-0 Yes [id number] Apply to [facility] Propionate 8-10 area(s) 2 ity of 0.05 % 00:00: (two) [place] lotion 00 times Medical daily as Branch needed for Rash or Itching. triamcinolo 2022-0 Yes [id number] Apply to [facility] ne 8-10 area(s) 2 ity of acetonide 00:00: (two) [place] 0.1 % cream 00 times Medical daily. Branch Clobetasol 2022-0 Yes [id number] Apply to [facility] Propionate 8-10 area(s) 2 ity of 0.05 % 00:00: (two) [place] lotion 00 times Medical daily as Branch needed for Rash or Itching. triamcinolo 2022-0 Yes [id number] Apply to [facility] ne 8-10 area(s) 2 ity of acetonide 00:00: (two) [place] 0.1 % cream 00 times Medical daily. Branch Clobetasol 2022-0 Yes [id number] Apply to [facility] Propionate 8-10 area(s) 2 ity of 0.05 % 00:00: (two) [place] lotion 00 times Medical daily as Branch needed for Rash or Itching. triamcinolo 2022-0 Yes [id number] Apply to [facility] ne 8-10 area(s) 2 ity of acetonide 00:00: (two) [place] 0.1 % cream 00 times Medical daily. Branch Clobetasol 2022-0 Yes [id number] Apply to [facility] Propionate 8-10 area(s) 2 ity of 0.05 % 00:00: (two) [place] lotion 00 times Medical daily as Branch needed for Rash or Itching. triamcinolo 2022-0 Yes [id number] Apply to [facility] ne 8-10 area(s) 2 ity of acetonide 00:00: (two) [place] 0.1 % cream 00 times Medical daily. Branch Clobetasol 2022-0 Yes [id number] Apply to [facility] Propionate 8-10 area(s) 2 ity of 0.05 % 00:00: (two) [place] lotion 00 times Medical daily as Branch needed for Rash or Itching. triamcinolo 2022-0 Yes [id number] Apply to [facility] ne 8-10 area(s) 2 ity of acetonide 00:00: (two) [place] 0.1 % cream 00 times Medical daily. Branch Clobetasol 2022-0 Yes [id number] Apply to [facility] Propionate 8-10 area(s) 2 ity of 0.05 % 00:00: (two) [place] lotion 00 times Medical daily as Branch needed for Rash or Itching. triamcinolo 2022-0 Yes [id number] Apply to [facility] ne 8-10 area(s) 2 ity of acetonide 00:00: (two) [place] 0.1 % cream 00 times Medical daily. Branch Clobetasol 2022-0 Yes [id number] Apply to [facility] Propionate 8-10 area(s) 2 ity of 0.05 % 00:00: (two) [place] lotion 00 times Medical daily as Branch needed for Rash or Itching. triamcinolo 2022-0 Yes [id number] Apply to [facility] ne 8-10 area(s) 2 ity of acetonide 00:00: (two) [place] 0.1 % cream 00 times Medical daily. Branch Clobetasol 2022-0 Yes [id number] Apply to [facility] Propionate 8-10 area(s) 2 ity of 0.05 % 00:00: (two) [place] lotion 00 times Medical daily as Branch needed for Rash or Itching. triamcinolo 2022-0 Yes [id number] Apply to [facility] ne 8-10 area(s) 2 ity of acetonide 00:00: (two) [place] 0.1 % cream 00 times Medical daily. Branch Clobetasol 2022-0 Yes [id number] Apply to [facility] Propionate 8-10 area(s) 2 ity of 0.05 % 00:00: (two) [place] lotion 00 times Medical daily as Branch needed for Rash or Itching. triamcinolo 2022-0 Yes [id number] Apply to [facility] ne 8-10 area(s) 2 ity of acetonide 00:00: (two) [place] 0.1 % cream 00 times Medical daily. Branch Clobetasol 2022-0 Yes [id number] Apply to [facility] Propionate 8-10 area(s) 2 ity of 0.05 % 00:00: (two) [place] lotion 00 times Medical daily as Branch needed for Rash or Itching. triamcinolo 2022-0 Yes [id number] Apply to [facility] ne 8-10 area(s) 2 ity of acetonide 00:00: (two) [place] 0.1 % cream 00 times Medical daily. Branch Clobetasol 2022-0 Yes [id number] Apply to [facility] Propionate 8-10 area(s) 2 ity of 0.05 % 00:00: (two) [place] lotion 00 times Medical daily as Branch needed for Rash or Itching. triamcinolo 2022-0 Yes [id number] Apply to [facility] ne 8-10 area(s) 2 ity of acetonide 00:00: (two) [place] 0.1 % cream 00 times Medical daily. Branch Clobetasol 2022-0 Yes [id number] Apply to [facility] Propionate 8-10 area(s) 2 ity of 0.05 % 00:00: (two) [place] lotion 00 times Medical daily as Branch needed for Rash or Itching. triamcinolo 2022-0 Yes [id number] Apply to [facility] ne 8-10 area(s) 2 ity of acetonide 00:00: (two) [place] 0.1 % cream 00 times Medical daily. Branch Clobetasol 2022-0 Yes [id number] Apply to [facility] Propionate 8-10 area(s) 2 ity of 0.05 % 00:00: (two) [place] lotion 00 times Medical daily as Branch needed for Rash or Itching. triamcinolo 2022-0 Yes [id number] Apply to [facility] ne 8-10 area(s) 2 ity of acetonide 00:00: (two) [place] 0.1 % cream 00 times Medical daily. Branch Clobetasol 2022-0 Yes [id number] Apply to [facility] Propionate 8-10 area(s) 2 ity of 0.05 % 00:00: (two) [place] lotion 00 times Medical daily as Branch needed for Rash or Itching. triamcinolo 2022-0 Yes [id number] Apply to [facility] ne 8-10 area(s) 2 ity of acetonide 00:00: (two) [place] 0.1 % cream 00 times Medical daily. Branch Clobetasol 2022-0 Yes [id number] Apply to [facility] Propionate 8-10 area(s) 2 ity of 0.05 % 00:00: (two) [place] lotion 00 times Medical daily as Branch needed for Rash or Itching. triamcinolo 2022-0 Yes [id number] Apply to [facility] ne 8-10 area(s) 2 ity of acetonide 00:00: (two) [place] 0.1 % cream 00 times Medical daily. Branch Clobetasol 2022-0 Yes [id number] Apply to [facility] Propionate 8-10 area(s) 2 ity of 0.05 % 00:00: (two) [place] lotion 00 times Medical daily as Branch needed for Rash or Itching. triamcinolo 2022-0 Yes [id number] Apply to [facility] ne 8-10 area(s) 2 ity of acetonide 00:00: (two) [place] 0.1 % cream 00 times Medical daily. Branch Clobetasol 2022-0 Yes [id number] Apply to [facility] Propionate 8-10 area(s) 2 ity of 0.05 % 00:00: (two) [place] lotion 00 times Medical daily as Branch needed for Rash or Itching. triamcinolo 2022-0 Yes [id number] Apply to [facility] ne 8-10 area(s) 2 ity of acetonide 00:00: (two) [place] 0.1 % cream 00 times Medical daily. Branch Clobetasol 2022-0 Yes [id number] Apply to [facility] Propionate 8-10 area(s) 2 ity of 0.05 % 00:00: (two) [place] lotion 00 times Medical daily as Branch needed for Rash or Itching. triamcinolo 2022-0 Yes [id number] Apply to [facility] ne 8-10 area(s) 2 ity of acetonide 00:00: (two) [place] 0.1 % cream 00 times Medical daily. Branch Clobetasol 2022-0 Yes [id number] Apply to [facility] Propionate 8-10 area(s) 2 ity of 0.05 % 00:00: (two) [place] lotion 00 times Medical daily as Branch needed for Rash or Itching. triamcinolo 2022-0 Yes [id number] Apply to [facility] ne 8-10 area(s) 2 ity of acetonide 00:00: (two) [place] 0.1 % cream 00 times Medical daily. Branch Clobetasol 2022-0 Yes [id number] Apply to [facility] Propionate 8-10 area(s) 2 ity of 0.05 % 00:00: (two) [place] lotion 00 times Medical daily as Branch needed for Rash or Itching. triamcinolo 2022-0 Yes [id number] Apply to [facility] ne 8-10 area(s) 2 ity of acetonide 00:00: (two) [place] 0.1 % cream 00 times Medical daily. Branch Clobetasol 2022-0 Yes [id number] Apply to [facility] Propionate 8-10 area(s) 2 ity of 0.05 % 00:00: (two) [place] lotion 00 times Medical daily as Branch needed for Rash or Itching. triamcinolo 2022-0 Yes [id number] Apply to [facility] ne 8-10 area(s) 2 ity of acetonide 00:00: (two) [place] 0.1 % cream 00 times Medical daily. Branch Clobetasol 2022-0 Yes [id number] Apply to [facility] Propionate 8-10 area(s) 2 ity of 0.05 % 00:00: (two) [place] lotion 00 times Medical daily as Branch needed for Rash or Itching. triamcinolo 2022-0 Yes [id number] Apply to [facility] ne 8-10 area(s) 2 ity of acetonide 00:00: (two) [place] 0.1 % cream 00 times Medical daily. Branch Clobetasol 2022-0 Yes [id number] Apply to [facility] Propionate 8-10 area(s) 2 ity of 0.05 % 00:00: (two) [place] lotion 00 times Medical daily as Branch needed for Rash or Itching. triamcinolo 2022-0 Yes [id number] Apply to [facility] ne 8-10 area(s) 2 ity of acetonide 00:00: (two) [place] 0.1 % cream 00 times Medical daily. Branch Clobetasol 2022-0 Yes [id number] Apply to [facility] Propionate 8-10 area(s) 2 ity of 0.05 % 00:00: (two) [place] lotion 00 times Medical daily as Branch needed for Rash or Itching. triamcinolo 2022-0 Yes [id number] Apply to [facility] ne 8-10 area(s) 2 ity of acetonide 00:00: (two) [place] 0.1 % cream 00 times Medical daily. Branch Clobetasol 2022-0 Yes [id number] Apply to [facility] Propionate 8-10 area(s) 2 ity of 0.05 % 00:00: (two) [place] lotion 00 times Medical daily as Branch needed for Rash or Itching. triamcinolo 2022-0 Yes [id number] Apply to [facility] ne 8-10 area(s) 2 ity of acetonide 00:00: (two) [place] 0.1 % cream 00 times Medical daily. Branch Clobetasol 2022-0 Yes [id number] Apply to [facility] Propionate 8-10 area(s) 2 ity of 0.05 % 00:00: (two) [place] lotion 00 times Medical daily as Branch needed for Rash or Itching. triamcinolo 2022-0 Yes [id number] Apply to [facility] ne 8-10 area(s) 2 ity of acetonide 00:00: (two) [place] 0.1 % cream 00 times Medical daily. Branch Clobetasol 2022-0 Yes [id number] Apply to [facility] Propionate 8-10 area(s) 2 ity of 0.05 % 00:00: (two) [place] lotion 00 times Medical daily as Branch needed for Rash or Itching. triamcinolo 2022-0 Yes [id number] Apply to [facility] ne 8-10 area(s) 2 ity of acetonide 00:00: (two) [place] 0.1 % cream 00 times Medical daily. Branch Clobetasol 2022-0 Yes [id number] Apply to [facility] Propionate 8-10 area(s) 2 ity of 0.05 % 00:00: (two) [place] lotion 00 times Medical daily as Branch needed for Rash or Itching. triamcinolo 0 Yes [id number] Apply to [facility] ne 8-10 area(s) 2 ity of acetonide 00:00: (two) [place] 0.1 % cream 00 times Medical daily. Branch Clobetasol 0 Yes [id number] Apply to [facility] Propionate 8-10 area(s) 2 ity of 0.05 % 00:00: (two) [place] lotion 00 times Medical daily as Branch needed for Rash or Itching. fluticasone Yes [id number] 2{spray Use 2 [facility] propionate 8-05 } Sprays in ity of 50 00:00: each [place] mcg/actuati 00 nostril in Me dical on nasal the Branch spray morning. fluticasone Yes [id number] 2{spray Use 2 [facility] propionate 8-05 } Sprays in ity of 50 00:00: each [place] mcg/actuati 00 nostril in Me dical on nasal the Branch spray morning. fluticasone 2021-0 Yes [id number] 2{spray Use 2 [facility] propionate 8-05 } Sprays in ity of 50 00:00: each [place] mcg/actuati 00 nostril in Me dical on nasal the Branch spray morning. fluticasone 2021-0 Yes [id number] 2{spray Use 2 [facility] propionate 8-05 } Sprays in ity of 50 00:00: each [place] mcg/actuati 00 nostril in Me dical on nasal the Branch spray morning. fluticasone 2021-0 Yes [id number] 2{spray Use 2 [facility] propionate 8-05 } Sprays in ity of 50 00:00: each [place] mcg/actuati 00 nostril in Me dical on nasal the Branch spray morning. fluticasone 2021-0 Yes [id number] 2{spray Use 2 [facility] propionate 8-05 } Sprays in ity of 50 00:00: each [place] mcg/actuati 00 nostril in Me dical on nasal the Branch spray morning. fluticasone 2021-0 Yes [id number] 2{spray Use 2 [facility] propionate 8-05 } Sprays in ity of 50 00:00: each [place] mcg/actuati 00 nostril in Me dical on nasal the Branch spray morning. fluticasone 2021-0 Yes [id number] 2{spray Use 2 [facility] propionate 8-05 } Sprays in ity of 50 00:00: each [place] mcg/actuati 00 nostril in Me dical on nasal the Branch spray morning. fluticasone 2021-0 Yes [id number] 2{spray Use 2 [facility] propionate 8-05 } Sprays in ity of 50 00:00: each [place] mcg/actuati 00 nostril in Me dical on nasal the Branch spray morning. fluticasone 2021-0 Yes [id number] 2{spray Use 2 [facility] propionate 8-05 } Sprays in ity of 50 00:00: each [place] mcg/actuati 00 nostril in Me dical on nasal the Branch spray morning. fluticasone 2021-0 Yes [id number] 2{spray Use 2 [facility] propionate 8-05 } Sprays in ity of 50 00:00: each [place] mcg/actuati 00 nostril in Me dical on nasal the Branch spray morning. fluticasone 2021-0 Yes [id number] 2{spray Use 2 [facility] propionate 8-05 } Sprays in ity of 50 00:00: each [place] mcg/actuati 00 nostril in Me dical on nasal the Branch spray morning. fluticasone 2021-0 Yes [id number] 2{spray Use 2 [facility] propionate 8-05 } Sprays in ity of 50 00:00: each [place] mcg/actuati 00 nostril in Me dical on nasal the Branch spray morning. fluticasone 2021-0 Yes [id number] 2{spray Use 2 [facility] propionate 8-05 } Sprays in ity of 50 00:00: each [place] mcg/actuati 00 nostril in Me dical on nasal the Branch spray morning. fluticasone 2021-0 Yes [id number] 2{spray Use 2 [facility] propionate 8-05 } Sprays in ity of 50 00:00: each [place] mcg/actuati 00 nostril in Me dical on nasal the Branch spray morning. fluticasone 2021-0 Yes [id number] 2{spray Use 2 [facility] propionate 8-05 } Sprays in ity of 50 00:00: each [place] mcg/actuati 00 nostril in Me dical on nasal the Branch spray morning. fluticasone 2021-0 Yes [id number] 2{spray Use 2 [facility] propionate 8-05 } Sprays in ity of 50 00:00: each [place] mcg/actuati 00 nostril in Me dical on nasal the Branch spray morning. fluticasone 2021-0 Yes [id number] 2{spray Use 2 [facility] propionate 8-05 } Sprays in ity of 50 00:00: each [place] mcg/actuati 00 nostril in Me dical on nasal the Branch spray morning. fluticasone 2021-0 Yes [id number] 2{spray Use 2 [facility] propionate 8-05 } Sprays in ity of 50 00:00: each [place] mcg/actuati 00 nostril in Me dical on nasal the Branch spray morning. fluticasone 2021-0 Yes [id number] 2{spray Use 2 [facility] propionate 8-05 } Sprays in ity of 50 00:00: each [place] mcg/actuati 00 nostril in Me dical on nasal the Branch spray morning. fluticasone 2021-0 Yes [id number] 2{spray Use 2 [facility] propionate 8-05 } Sprays in ity of 50 00:00: each [place] mcg/actuati 00 nostril in Me dical on nasal the Branch spray morning. fluticasone 2021-0 Yes [id number] 2{spray Use 2 [facility] propionate 8-05 } Sprays in ity of 50 00:00: each [place] mcg/actuati 00 nostril in Me dical on nasal the Branch spray morning. fluticasone 2021-0 Yes [id number] 2{spray Use 2 [facility] propionate 8-05 } Sprays in ity of 50 00:00: each [place] mcg/actuati 00 nostril in Me dical on nasal the Branch spray morning. fluticasone 2021-0 Yes [id number] 2{spray Use 2 [facility] propionate 8-05 } Sprays in ity of 50 00:00: each [place] mcg/actuati 00 nostril in Me dical on nasal the Branch spray morning. fluticasone 2021-0 Yes [id number] 2{spray Use 2 [facility] propionate 8-05 } Sprays in ity of 50 00:00: each [place] mcg/actuati 00 nostril in Me dical on nasal the Branch spray morning. fluticasone 2021-0 Yes [id number] 2{spray Use 2 [facility] propionate 8-05 } Sprays in ity of 50 00:00: each [place] mcg/actuati 00 nostril in Me dical on nasal the Branch spray morning. fluticasone 2021-0 Yes [id number] 2{spray Use 2 [facility] propionate 8-05 } Sprays in ity of 50 00:00: each [place] mcg/actuati 00 nostril in Me dical on nasal the Branch spray morning. fluticasone 2021-0 Yes [id number] 2{spray Use 2 [facility] propionate 8-05 } Sprays in ity of 50 00:00: each [place] mcg/actuati 00 nostril in Me dical on nasal the Branch spray morning. fluticasone 2021-0 Yes [id number] 2{spray Use 2 [facility] propionate 8-05 } Sprays in ity of 50 00:00: each [place] mcg/actuati 00 nostril in Me dical on nasal the Branch spray morning. fluticasone 0 Yes [id number] 2{spray Use 2 [facility] propionate 8-05 } Sprays in ity of 50 00:00: each [place] mcg/actuati 00 nostril in Me dical on nasal the Branch spray morning. fluticasone 0 Yes [id number] 2{spray Use 2 [facility] propionate 8-05 } Sprays in ity of 50 00:00: each [place] mcg/actuati 00 nostril in Me dical on nasal the Branch spray morning. fluticasone 2021-0 Yes [id number] 2{spray Use 2 [facility] propionate 8-05 } Sprays in ity of 50 00:00: each [place] mcg/actuati 00 nostril in Me dical on nasal the Branch spray morning. fluticasone 2021-0 Yes [id number] 2{spray Use 2 [facility] propionate 8-05 } Sprays in ity of 50 00:00: each [place] mcg/actuati 00 nostril in Me dical on nasal the Branch spray morning. fluticasone 2021-0 Yes [id number] 2{spray Use 2 [facility] propionate 8-05 } Sprays in ity of 50 00:00: each [place] mcg/actuati 00 nostril in Me dical on nasal the Branch spray morning. fluticasone 2021-0 Yes [id number] 2{spray Use 2 [facility] propionate 8-05 } Sprays in ity of 50 00:00: each [place] mcg/actuati 00 nostril in Me dical on nasal the Branch spray morning. fluticasone 2021-0 Yes [id number] 2{spray Use 2 [facility] propionate 8-05 } Sprays in ity of 50 00:00: each [place] mcg/actuati 00 nostril in Me dical on nasal the Branch spray morning. fluticasone 2021-0 Yes [id number] 2{spray Use 2 [facility] propionate 8-05 } Sprays in ity of 50 00:00: each [place] mcg/actuati 00 nostril in Me dical on nasal the Branch spray morning. fluticasone 2021-0 Yes [id number] 2{spray Use 2 [facility] propionate 8-05 } Sprays in ity of 50 00:00: each [place] mcg/actuati 00 nostril in Me dical on nasal the Branch spray morning. fluticasone 2021-0 Yes [id number] 2{spray Use 2 [facility] propionate 8-05 } Sprays in ity of 50 00:00: each [place] mcg/actuati 00 nostril in Me dical on nasal the Branch spray morning. fluticasone 2021-0 Yes [id number] 2{spray Use 2 [facility] propionate 8-05 } Sprays in ity of 50 00:00: each [place] mcg/actuati 00 nostril in Me dical on nasal the Branch spray morning. fluticasone 2021-0 Yes [id number] 2{spray Use 2 [facility] propionate 8-05 } Sprays in ity of 50 00:00: each [place] mcg/actuati 00 nostril in Me dical on nasal the Branch spray morning. fluticasone 2021-0 Yes [id number] 2{spray Use 2 [facility] propionate 8-05 } Sprays in ity of 50 00:00: each [place] mcg/actuati 00 nostril in Me dical on nasal the Branch spray morning. fluticasone 2021-0 Yes [id number] 2{spray Use 2 [facility] propionate 8-05 } Sprays in ity of 50 00:00: each [place] mcg/actuati 00 nostril in Me dical on nasal the Branch spray morning. fluticasone 0 Yes [id number] 2{spray Use 2 [facility] propionate 8-05 } Sprays in ity of 50 00:00: each [place] mcg/actuati 00 nostril in Me dical on nasal the Branch spray morning. fluticasone 2021-0 Yes [id number] 2{spray Use 2 [facility] propionate 8-05 } Sprays in ity of 50 00:00: each [place] mcg/actuati 00 nostril in Me dical on nasal the Branch spray morning. fluticasone 0 Yes [id number] 2{spray Use 2 [facility] propionate 8-05 } Sprays in ity of 50 00:00: each [place] mcg/actuati 00 nostril in Me dical on nasal the Branch spray morning. fluticasone 0 Yes [id number] 2{spray Use 2 [facility] propionate 8-05 } Sprays in ity of 50 00:00: each [place] mcg/actuati 00 nostril in Me dical on nasal the Branch spray morning. fluticasone 0 Yes [id number] 2{spray Use 2 [facility] propionate 8-05 } Sprays in ity of 50 00:00: each [place] mcg/actuati 00 nostril in Me dical on nasal the Branch spray morning. fluticasone 2021-0 Yes [id number] 2{spray Use 2 [facility] propionate 8-05 } Sprays in ity of 50 00:00: each [place] mcg/actuati 00 nostril in Me dical on nasal the Branch spray morning. fluticasone 2021-0 Yes [id number] 2{spray Use 2 [facility] propionate 8-05 } Sprays in ity of 50 00:00: each [place] mcg/actuati 00 nostril in Me dical on nasal the Branch spray morning. fluticasone 2021-0 Yes [id number] 2{spray Use 2 [facility] propionate 8-05 } Sprays in ity of 50 00:00: each [place] mcg/actuati 00 nostril in Me dical on nasal the Branch spray morning. fluticasone 2021-0 Yes [id number] 2{spray Use 2 [facility] propionate 8-05 } Sprays in ity of 50 00:00: each [place] mcg/actuati 00 nostril in Me dical on nasal the Branch spray morning. fluticasone 0 Yes [id number] 2{spray Use 2 [facility] propionate 8-05 } Sprays in ity of 50 00:00: each [place] mcg/actuati 00 nostril in Me dical on nasal the Branch spray morning. fluticasone 0 Yes [id number] 2{spray Use 2 [facility] propionate 8-05 } Sprays in ity of 50 00:00: each [place] mcg/actuati 00 nostril in Me dical on nasal the Branch spray morning. fluticasone 0 Yes [id number] 2{spray Use 2 [facility] propionate 8-05 } Sprays in ity of 50 00:00: each [place] mcg/actuati 00 nostril in Me dical on nasal the Branch spray morning. fluticasone 0 Yes [id number] 2{spray Use 2 [facility] propionate 8-05 } Sprays in ity of 50 00:00: each [place] mcg/actuati 00 nostril in Me dical on nasal the Branch spray morning. fluticasone 2021-0 Yes [id number] 2{spray Use 2 [facility] propionate 8-05 } Sprays in ity of 50 00:00: each [place] mcg/actuati 00 nostril in Me dical on nasal the Branch spray morning. fluticasone 2021-0 Yes [id number] 2{spray Use 2 [facility] propionate 8-05 } Sprays in ity of 50 00:00: each [place] mcg/actuati 00 nostril in Me dical on nasal the Branch spray morning. fluticasone 2021-0 Yes [id number] 2{spray Use 2 [facility] propionate 8-05 } Sprays in ity of 50 00:00: each [place] mcg/actuati 00 nostril in Me dical on nasal the Branch spray morning. fluticasone 2021-0 Yes [id number] 2{spray Use 2 [facility] propionate 8-05 } Sprays in ity of 50 00:00: each [place] mcg/actuati 00 nostril in Me dical on nasal the Branch spray morning. fluticasone 2021-0 Yes [id number] 2{spray Use 2 [facility] propionate 8-05 } Sprays in ity of 50 00:00: each [place] mcg/actuati 00 nostril in Me dical on nasal the Branch spray morning. fluticasone 2021-0 Yes [id number] 2{spray Use 2 [facility] propionate 8-05 } Sprays in ity of 50 00:00: each [place] mcg/actuati 00 nostril in Me dical on nasal the Branch spray morning. fluticasone 2021-0 Yes [id number] 2{spray Use 2 [facility] propionate 8-05 } Sprays in ity of 50 00:00: each [place] mcg/actuati 00 nostril in Me dical on nasal the Branch spray morning. fluticasone 2021-0 Yes [id number] 2{spray Use 2 [facility] propionate 8-05 } Sprays in ity of 50 00:00: each [place] mcg/actuati 00 nostril in Me dical on nasal the Branch spray morning. fluticasone 2021-0 Yes [id number] 2{spray Use 2 [facility] propionate 8-05 } Sprays in ity of 50 00:00: each [place] mcg/actuati 00 nostril in Me dical on nasal the Branch spray morning. fluticasone 2021-0 Yes [id number] 2{spray Use 2 [facility] propionate 8-05 } Sprays in ity of 50 00:00: each [place] mcg/actuati 00 nostril in Me dical on nasal the Branch spray morning. fluticasone 2021-0 Yes [id number] 2{spray Use 2 [facility] propionate 8-05 } Sprays in ity of 50 00:00: each [place] mcg/actuati 00 nostril in Me dical on nasal the Branch spray morning. fluticasone 2021-0 Yes [id number] 2{spray Use 2 [facility] propionate 8-05 } Sprays in ity of 50 00:00: each [place] mcg/actuati 00 nostril in Me dical on nasal the Branch spray morning. fluticasone 2021-0 Yes [id number] 2{spray Use 2 [facility] propionate 8-05 } Sprays in ity of 50 00:00: each [place] mcg/actuati 00 nostril in Me dical on nasal the Branch spray morning. fluticasone 2021-0 Yes [id number] 2{spray Use 2 [facility] propionate 8-05 } Sprays in ity of 50 00:00: each [place] mcg/actuati 00 nostril in Me dical on nasal the Branch spray morning. fluticasone Yes [id number] 2{spray Use 2 [facility] propionate 8-05 } Sprays in ity of 50 00:00: each [place] mcg/actuati 00 nostril in Me dical on nasal the Branch spray morning. fluticasone 0 Yes [id number] 2{spray Use 2 [facility] propionate 8-05 } Sprays in ity of 50 00:00: each [place] mcg/actuati 00 nostril in Me dical on nasal the Branch spray morning. fluticasone Yes [id number] 2{spray Use 2 [facility] propionate 8-05 } Sprays in ity of 50 00:00: each [place] mcg/actuati 00 nostril in Me dical on nasal the Branch spray morning. fluticasone Yes [id number] 2{spray Use 2 [facility] propionate 8-05 } Sprays in ity of 50 00:00: each [place] mcg/actuati 00 nostril in Me dical on nasal the Branch spray morning. fluticasone Yes [id number] 2{spray Use 2 [facility] propionate 8-05 } Sprays in ity of 50 00:00: each [place] mcg/actuati 00 nostril in Me dical on nasal the Branch spray morning. fluticasone Yes [id number] 2{spray Use 2 [facility] propionate 8-05 } Sprays in ity of 50 00:00: each [place] mcg/actuati 00 nostril in Me dical on nasal the Branch spray morning. fluticasone 0 Yes [id number] 2{spray Use 2 [facility] propionate 8-05 } Sprays in ity of 50 00:00: each [place] mcg/actuati 00 nostril in Me dical on nasal the Branch spray morning. doxepin 25 0 Yes [id number] 25mg Take 1 [facility] mg capsule 8-03 capsule by ity of 00:00: mouth at [place] 00 bedtime. [facility] doxepin 25 2021-0 Yes [id number] 25mg Take 1 [facility] mg capsule 8-03 capsule by ity of 00:00: mouth at [place] 00 bedtime. [facility] doxepin 25 2021-0 Yes [id number] 25mg Take 1 [facility] mg capsule 8-03 capsule by ity of 00:00: mouth at [place] [address] bedtime. [facility] doxepin Yes [id number] 25mg Take 1 [facility] mg capsule 8-03 capsule by ity of 00:00: mouth at [place] [address] bedtime. [facility] doxepin Yes [id number] 25mg Take 1 [facility] mg capsule 8-03 capsule by ity of 00:00: mouth at [place] [address] bedtime. [facility] doxepin Yes [id number] 25mg Take 1 [facility] mg capsule 8-03 capsule by ity of 00:00: mouth at [place] [address] bedtime. [facility] doxepin Yes [id number] 25mg Take 1 [facility] mg capsule 8-03 capsule by ity of 00:00: mouth at [place] [address] bedtime. [facility] doxepin Yes [id number] 25mg Take 1 [facility] mg capsule 8-03 capsule by ity of 00:00: mouth at [place] [address] bedtime. [facility] doxepin Yes [id number] 25mg Take 1 [facility] mg capsule 8-03 capsule by ity of 00:00: mouth at [place] [address] bedtime. [facility] doxepin Yes [id number] 25mg Take 1 [facility] mg capsule 8-03 capsule by ity of 00:00: mouth at [place] [address] bedtime. [facility] doxepin Yes [id number] 25mg Take 1 [facility] mg capsule 8-03 capsule by ity of 00:00: mouth at [place] [address] bedtime. [facility] doxepin Yes [id number] 25mg Take 1 [facility] mg capsule 8-03 capsule by ity of 00:00: mouth at [place] [address] bedtime. [facility] doxepin Yes [id number] 25mg Take 1 [facility] mg capsule 8-03 capsule by ity of 00:00: mouth at [place] [address] bedtime. [facility] doxepin Yes [id number] 25mg Take 1 [facility] mg capsule 8-03 capsule by ity of 00:00: mouth at [place] [address] bedtime. [facility] doxepin Yes [id number] 25mg Take 1 [facility] mg capsule 8-03 capsule by ity of 00:00: mouth at [place] 00 bedtime. [facility] doxepin Yes [id number] 25mg Take 1 [facility] mg capsule 8-03 capsule by ity of 00:00: mouth at [place] [address] bedtime. [facility] doxepin Yes [id number] 25mg Take 1 [facility] mg capsule 8-03 capsule by ity of 00:00: mouth at [place] [address] bedtime. [facility] doxepin Yes [id number] 25mg Take 1 [facility] mg capsule 8-03 capsule by ity of 00:00: mouth at [place] [address] bedtime. Medical Branch doxepin Yes [id number] 25mg Take 1 [facility] mg capsule 8-03 capsule by ity of 00:00: mouth at [place] [address] bedtime. Medical Branch doxepin Yes [id number] 25mg Take 1 [facility] mg capsule 8-03 capsule by ity of 00:00: mouth at [place] [address] bedtime. Medical Branch doxepin Yes [id number] 25mg Take 1 [facility] mg capsule 8-03 capsule by ity of 00:00: mouth at [place] [address] bedtime. Medical Branch doxepin Yes [id number] 25mg Take 1 [facility] mg capsule 8-03 capsule by ity of 00:00: mouth at [place] [address] bedtime. Medical Branch doxepin Yes [id number] 25mg Take 1 [facility] mg capsule 8-03 capsule by ity of 00:00: mouth at [place] [address] bedtime. Medical Branch doxepin Yes [id number] 25mg Take 1 [facility] mg capsule 8-03 capsule by ity of 00:00: mouth at [place] [address] bedtime. Medical Branch doxepin Yes [id number] 25mg Take 1 [facility] mg capsule 8-03 capsule by ity of 00:00: mouth at [place] [address] bedtime. Medical Branch doxepin 25 Yes [id number] 25mg Take 1 [facility] mg capsule 8-03 capsule by ity of 00:00: mouth at [place] [address] bedtime. Medical Branch doxepin Yes [id number] 25mg Take 1 [facility] mg capsule 8-03 capsule by ity of 00:00: mouth at [place] [address] bedtime. Medical Branch doxepin 25 Yes [id number] 25mg Take 1 [facility] mg capsule 8-03 capsule by ity of 00:00: mouth at [place] 00 bedtime. Medical Branch doxepin 25 2021-0 Yes [id number] 25mg Take 1 [facility] mg capsule 8-03 capsule by ity of 00:00: mouth at [place] 00 bedtime. Medical Branch doxepin 25 2021-0 Yes [id number] 25mg Take 1 [facility] mg capsule 8-03 capsule by ity of 00:00: mouth at [place] 00 bedtime. Medical Branch doxepin 25 2021-0 2022- No [id number] 25mg Take 1 [facility] mg capsule 8- 11-08 capsule by it y of 00:00: 00:00 mouth at [place] 00 :00 bedtime. Medical Branch benzonatate 0 Yes [id number] 100mg Take 1 [facility] (TESSALON 7-29 capsule by ity of BRAD) 100 00:00: mouth [place] mg capsule 00 every 8 Medica l (eight) Branch hours as needed for Cough. arformotero 0 Yes 15ug Use 2 mL Un renetta [...] in the Branch evening. benzonatate 2021-0 Yes [id number] 100mg Take 1 [facility] (TESSALON 7-29 capsule by ity of BRAD) 100 00:00: mouth [place] mg capsule 00 every 8 Medica l (eight) Branch hours as needed for Cough. arformotero 0 Yes 15ug Use 2 mL Un renetta [...] in the Branch evening. benzonatate 2021-0 Yes [id number] 100mg Take 1 [facility] (TESSALON 7-29 capsule by [employer]) 100 00:00: mouth [place] mg capsule 00 [...] in the Branch evening. benzonatate 2022-0 Yes [id number] 100mg Take 1 [facility] (TESSALON 7-29 capsule by [employer] [facility] [employer]) 100 00:00: mouth [place] mg capsule 00 [...] in the Branch evening. benzonatate 2022-0 Yes [id number] 100mg Take 1 [facility] (TESSALON 7-29 capsule by [employer]) 100 00:00: mouth [place] mg capsule 00 [...] in the Branch evening. benzonatate 2022-0 Yes [id number] 100mg Take 1 [facility] (TESSALON 7-29 capsule [...] in the Branch evening. benzonatate 2022-0 Yes [id number] 100mg Take 1 [facility] (TESSALON 7-29 capsule [...] in the Branch evening. benzonatate 2022-0 Yes [id number] 100mg Take 1 [facility] (TESSALON 7-29 capsule [...] in the Branch evening. benzonatate 2022-0 Yes [id number] 100mg Take 1 [facility] (TESSALON 7-29 capsule [...] in the Branch evening. benzonatate 2022-0 Yes [id number] 100mg Take 1 [facility] (TESSALON 7-29 capsule [...] in the Branch evening. benzonatate 2022-0 Yes [id number] 100mg Take 1 [facility] (TESSALON 7-29 capsule [...] in the Branch evening. benzonatate 2022-0 Yes [id number] 100mg Take 1 [facility] (TESSALON 7-29 capsule by ity of BRAD) 100 00:00: [...] in the Branch evening. benzonatate 2022-0 Yes [id number] 100mg Take 1 [facility] (TESSALON 7-29 capsule [...] in the Branch evening. benzonatate 2022-0 Yes [id number] 100mg Take 1 [facility] (TESSALON 7-29 capsule [...] in the Branch evening. benzonatate 2022-0 Yes [id number] 100mg Take 1 [facility] (TESSALON 7-29 capsule by ity of [place]) 100 00:00: mouth [place] mg capsule 00 every 8 Medica l (eight) Branch hours as needed for Cough. benzonatate 2021-0 Yes [id number] 100mg Take 1 [facility] (TESSALON 7-29 capsule by ity of PERLES) 100 00:00: mouth [place] mg capsule 00 every 8 Medica l (eight) Branch hours as needed for Cough. benzonatate 2021-0 Yes [id number] 100mg Take 1 [facility] (TESSALON 7-29 capsule by ity of PERLES) 100 00:00: mouth [place] mg capsule 00 every 8 Medica l (eight) Branch hours as needed for Cough. benzonatate 2021-0 Yes [id number] 100mg Take 1 [facility] (TESSALON 7-29 capsule by ity of PERLES) 100 00:00: mouth [place] mg capsule 00 every 8 Medica l (eight) Branch hours as needed for Cough. benzonatate 2021-0 Yes [id number] 100mg Take 1 [facility] (TESSALON 7-29 capsule by ity of PERLES) 100 00:00: mouth [place] mg capsule 00 every 8 Medica l (eight) Branch hours as needed for Cough. benzonatate 2021-0 Yes [id number] 100mg Take 1 [facility] (TESSALON 7-29 capsule by ity of PER[place]) 100 00:00: mouth [place] mg capsule 00 every 8 Medica l (eight) Branch hours as needed for Cough. benzonatate 2021-0 Yes [id number] 100mg Take 1 [facility] (TESSALON 7-29 capsule by ity of [place]) 100 00:00: mouth [place] mg capsule 00 every 8 Medica l (eight) Branch hours as needed for Cough. benzonatate 2021-0 Yes [id number] 100mg Take 1 [facility] (TESSALON 7-29 capsule by ity of PERLES) 100 00:00: mouth [place] mg capsule 00 every 8 Medica l (eight) Branch hours as needed for Cough. benzonatate 2021-0 Yes [id number] 100mg Take 1 [facility] (TESSALON 7-29 capsule by ity of [place]) 100 00:00: mouth [place] mg capsule 00 every 8 Medica l (eight) Branch hours as needed for Cough. benzonatate 2021-0 Yes [id number] 100mg Take 1 [facility] (TESSALON 7-29 capsule by [employer] of [address]) 100 00:00: mouth [place] mg capsule 00 every 8 Medica l (eight) Branch hours as needed for Cough. benzonatate 2021-0 Yes [id number] 100mg Take 1 [facility] (TESSALON 7-29 capsule by [employer] of [address]) 100 00:00: mouth [place] mg capsule 00 every 8 Medica l (eight) Branch hours as needed for Cough. benzonatate 2021-0 Yes [id number] 100mg Take 1 [facility] (TESSALON 7-29 capsule by [employer] of BRAD) 100 00:00: mouth [place] mg capsule 00 every 8 Medica l (eight) Branch hours as needed for Cough. benzonatate 0 Yes [id number] 100mg Take 1 [facility] (TESSALON 7-29 capsule by [employer] BRAD) 100 00:00: mouth [place] mg capsule 00 every 8 Medica l (eight) Branch hours as needed for Cough. benzonatate 2021- No [id number] 100mg Take 1 [facility] (TESSALON 7-29 11-01 capsule by [employer]si BRAD) 100 00:00: 00:00 mouth [place] mg capsule 00 :00 every 8 Medica l (eight) Branch hours as needed for Cough. arformotero 2021- No 15ug Use 2 mL [...] solution in the Branch evening. albuterol Yes [id number] 2{puff} Inhale 2 [facility] 90 7-27 Puffs ity of mcg/actuati 00:00: every 6 [place] on inhaler 00 (six) Medical hours as Branch needed for Wheezing or Shortness of Breath. albuterol Yes [id number] 2{puff} Inhale 2 [facility] 90 7-27 Puffs ity of mcg/actuati 00:00: every 6 [place] on inhaler 00 (six) Medical hours as Branch needed for Wheezing or Shortness of Breath. albuterol Yes [id number] 2{puff} Inhale 2 [facility] 90 7-27 Puffs ity of mcg/actuati 00:00: every 6 [place] on inhaler 00 (six) Medical hours as Branch needed for Wheezing or Shortness of Breath. albuterol Yes [id number] 2{puff} Inhale 2 [facility] 90 7-27 Puffs ity of mcg/actuati 00:00: every 6 [place] on inhaler 00 (six) Medical hours as Branch needed for Wheezing or Shortness of Breath. albuterol Yes [id number] 2{puff} Inhale 2 [facility] 90 7-27 Puffs ity of mcg/actuati 00:00: every 6 [place] on inhaler 00 (six) Medical hours as Branch needed for Wheezing or Shortness of Breath. albuterol Yes [id number] 2{puff} Inhale 2 [facility] 90 7-27 Puffs ity of mcg/actuati 00:00: every 6 [place] on inhaler 00 (six) Medical hours as Branch needed for Wheezing or Shortness of Breath. albuterol Yes [id number] 2{puff} Inhale 2 [facility] 90 7-27 Puffs ity of mcg/actuati 00:00: every 6 [place] on inhaler 00 (six) Medical hours as Branch needed for Wheezing or Shortness of Breath. albuterol Yes [id number] 2{puff} Inhale 2 [facility] 90 7-27 Puffs ity of mcg/actuati 00:00: every 6 [place] on inhaler 00 (six) Medical hours as Branch needed for Wheezing or Shortness of Breath. albuterol Yes [id number] 2{puff} Inhale 2 [facility] 90 7-27 Puffs ity of mcg/actuati 00:00: every 6 [place] on inhaler 00 (six) Medical hours as Branch needed for Wheezing or Shortness of Breath. albuterol Yes [id number] 2{puff} Inhale 2 [facility] 90 7-27 Puffs ity of mcg/actuati 00:00: every 6 [place] on inhaler 00 (six) Medical hours as Branch needed for Wheezing or Shortness of Breath. albuterol Yes [id number] 2{puff} Inhale 2 [facility] 90 7-27 Puffs ity of mcg/actuati 00:00: every 6 [place] on inhaler 00 (six) Medical hours as Branch needed for Wheezing or Shortness of Breath. albuterol Yes [id number] 2{puff} Inhale 2 [facility] 90 7-27 Puffs ity of mcg/actuati 00:00: every 6 [place] on inhaler 00 (six) Medical hours as Branch needed for Wheezing or Shortness of Breath. albuterol Yes [id number] 2{puff} Inhale 2 [facility] 90 7-27 Puffs ity of mcg/actuati 00:00: every 6 [place] on inhaler 00 (six) Medical hours as Branch needed for Wheezing or Shortness of Breath. albuterol Yes [id number] 2{puff} Inhale 2 [facility] 90 7-27 Puffs ity of mcg/actuati 00:00: every 6 [place] on inhaler 00 (six) Medical hours as Branch needed for Wheezing or Shortness of Breath. albuterol Yes [id number] 2{puff} Inhale 2 [facility] 90 7-27 Puffs ity of mcg/actuati 00:00: every 6 [place] on inhaler 00 (six) Medical hours as Branch needed for Wheezing or Shortness of Breath. albuterol Yes [id number] 2{puff} Inhale 2 [facility] 90 7-27 Puffs ity of mcg/actuati 00:00: every 6 [place] on inhaler 00 (six) Medical hours as Branch needed for Wheezing or Shortness of Breath. albuterol Yes [id number] 2{puff} Inhale 2 [facility] 90 7-27 Puffs ity of mcg/actuati 00:00: every 6 [place] on inhaler 00 (six) Medical hours as Branch needed for Wheezing or Shortness of Breath. albuterol Yes [id number] 2{puff} Inhale 2 [facility] 90 7-27 Puffs ity of mcg/actuati 00:00: every 6 [place] on inhaler 00 (six) Medical hours as Branch needed for Wheezing or Shortness of Breath. albuterol Yes [id number] 2{puff} Inhale 2 [facility] 90 7-27 Puffs ity of mcg/actuati 00:00: every 6 [place] on inhaler 00 (six) Medical hours as Branch needed for Wheezing or Shortness of Breath. albuterol Yes [id number] 2{puff} Inhale 2 [facility] 90 7-27 Puffs ity of mcg/actuati 00:00: every 6 [place] on inhaler 00 (six) Medical hours as Branch needed for Wheezing or Shortness of Breath. albuterol Yes [id number] 2{puff} Inhale 2 [facility] 90 7-27 Puffs ity of mcg/actuati 00:00: every 6 [place] on inhaler 00 (six) Medical hours as Branch needed for Wheezing or Shortness of Breath. albuterol Yes [id number] 2{puff} Inhale 2 [facility] 90 7-27 Puffs ity of mcg/actuati 00:00: every 6 [place] on inhaler 00 (six) Medical hours as Branch needed for Wheezing or Shortness of Breath. albuterol Yes [id number] 2{puff} Inhale 2 [facility] 90 7-27 Puffs ity of mcg/actuati 00:00: every 6 [place] on inhaler 00 (six) Medical hours as Branch needed for Wheezing or Shortness of Breath. albuterol Yes [id number] 2{puff} Inhale 2 [facility] 90 7-27 Puffs ity of mcg/actuati 00:00: every 6 [place] on inhaler 00 (six) Medical hours as Branch needed for Wheezing or Shortness of Breath. albuterol Yes [id number] 2{puff} Inhale 2 [facility] 90 7-27 Puffs ity of mcg/actuati 00:00: every 6 [place] on inhaler 00 (six) Medical hours as Branch needed for Wheezing or Shortness of Breath. albuterol Yes [id number] 2{puff} Inhale 2 [facility] 90 7-27 Puffs ity of mcg/actuati 00:00: every 6 [place] on inhaler 00 (six) Medical hours as Branch needed for Wheezing or Shortness of Breath. albuterol Yes [id number] 2{puff} Inhale 2 [facility] 90 7-27 Puffs ity of mcg/actuati 00:00: every 6 [place] on inhaler 00 (six) Medical hours as Branch needed for Wheezing or Shortness of Breath. albuterol Yes [id number] 2{puff} Inhale 2 [facility] 90 7-27 Puffs ity of mcg/actuati 00:00: every 6 [place] on inhaler 00 (six) Medical hours as Branch needed for Wheezing or Shortness of Breath. albuterol Yes [id number] 2{puff} Inhale 2 [facility] 90 7-27 Puffs ity of mcg/actuati 00:00: every 6 [place] on inhaler 00 (six) Medical hours as Branch needed for Wheezing or Shortness of Breath. albuterol Yes [id number] 2{puff} Inhale 2 [facility] 90 7-27 Puffs ity of mcg/actuati 00:00: every 6 [place] on inhaler 00 (six) Medical hours as Branch needed for Wheezing or Shortness of Breath. albuterol Yes [id number] 2{puff} Inhale 2 [facility] 90 7-27 Puffs ity of mcg/actuati 00:00: every 6 [place] on inhaler 00 (six) Medical hours as Branch needed for Wheezing or Shortness of Breath. albuterol Yes [id number] 2{puff} Inhale 2 [facility] 90 7-27 Puffs ity of mcg/actuati 00:00: every 6 [place] on inhaler 00 (six) Medical hours as Branch needed for Wheezing or Shortness of Breath. albuterol Yes [id number] 2{puff} Inhale 2 [facility] 90 7-27 Puffs ity of mcg/actuati 00:00: every 6 [place] on inhaler 00 (six) Medical hours as Branch needed for Wheezing or Shortness of Breath. albuterol Yes [id number] 2{puff} Inhale 2 [facility] 90 7-27 Puffs ity of mcg/actuati 00:00: every 6 [place] on inhaler 00 (six) Medical hours as Branch needed for Wheezing or Shortness of Breath. albuterol Yes [id number] 2{puff} Inhale 2 [facility] 90 7-27 Puffs ity of mcg/actuati 00:00: every 6 [place] on inhaler 00 (six) Medical hours as Branch needed for Wheezing or Shortness of Breath. albuterol Yes [id number] 2{puff} Inhale 2 [facility] 90 7-27 Puffs ity of mcg/actuati 00:00: every 6 [place] on inhaler 00 (six) Medical hours as Branch needed for Wheezing or Shortness of Breath. albuterol Yes [id number] 2{puff} Inhale 2 [facility] 90 7-27 Puffs ity of mcg/actuati 00:00: every 6 [place] on inhaler 00 (six) Medical hours as Branch needed for Wheezing or Shortness of Breath. albuterol Yes [id number] 2{puff} Inhale 2 [facility] 90 7-27 Puffs ity of mcg/actuati 00:00: every 6 [place] on inhaler 00 (six) Medical hours as Branch needed for Wheezing or Shortness of Breath. albuterol Yes [id number] 2{puff} Inhale 2 [facility] 90 7-27 Puffs ity of mcg/actuati 00:00: every 6 [place] on inhaler 00 (six) Medical hours as Branch needed for Wheezing or Shortness of Breath. albuterol Yes [id number] 2{puff} Inhale 2 [facility] 90 7-27 Puffs ity of mcg/actuati 00:00: every 6 [place] on inhaler 00 (six) Medical hours as Branch needed for Wheezing or Shortness of Breath. albuterol Yes [id number] 2{puff} Inhale 2 [facility] 90 7-27 Puffs ity of mcg/actuati 00:00: every 6 [place] on inhaler 00 (six) Medical hours as Branch needed for Wheezing or Shortness of Breath. albuterol Yes [id number] 2{puff} Inhale 2 [facility] 90 7-27 Puffs ity of mcg/actuati 00:00: every 6 [place] on inhaler 00 (six) Medical hours as Branch needed for Wheezing or Shortness of Breath. albuterol Yes [id number] 2{puff} Inhale 2 [facility] 90 7-27 Puffs ity of mcg/actuati 00:00: every 6 [place] on inhaler 00 (six) Medical hours as Branch needed for Wheezing or Shortness of Breath. albuterol Yes [id number] 2{puff} Inhale 2 [facility] 90 7-27 Puffs ity of mcg/actuati 00:00: every 6 [place] on inhaler 00 (six) Medical hours as Branch needed for Wheezing or Shortness of Breath. albuterol Yes [id number] 2{puff} Inhale 2 [facility] 90 7-27 Puffs ity of mcg/actuati 00:00: every 6 [place] on inhaler 00 (six) Medical hours as Branch needed for Wheezing or Shortness of Breath. albuterol Yes [id number] 2{puff} Inhale 2 [facility] 90 7-27 Puffs ity of mcg/actuati 00:00: every 6 [place] on inhaler 00 (six) Medical hours as Branch needed for Wheezing or Shortness of Breath. albuterol Yes [id number] 2{puff} Inhale 2 [facility] 90 7-27 Puffs ity of mcg/actuati 00:00: every 6 [place] on inhaler 00 (six) Medical hours as Branch needed for Wheezing or Shortness of Breath. albuterol 2022- No [id number] 2{puff} Inhale 2 [facility] 90 7-27 01-05 Puffs ity of mcg/actuati 00:00: 00:00 every 6 [place] on inhaler 00 :00 (six) Medical hours as Branch needed for Wheezing or Shortness of Breath. albuterol 2022- No [id number] 2{puff} Inhale 2 [facility] 90 7-27 01-05 Puffs ity of mcg/actuati 00:00: 00:00 every 6 [place] on inhaler 00 :00 (six) Medical hours as Branch needed for Wheezing or Shortness of Breath. albuterol 2022- No [id number] 2{puff} Inhale 2 [facility] 90 7-27 01-05 Puffs ity of mcg/actuati 00:00: 00:00 every 6 [place] on inhaler 00 :00 (six) Medical hours as Branch needed for Wheezing or Shortness of Breath. albuterol 2022- No [id number] 2{puff} Inhale 2 [facility] 90 7-27 01-05 Puffs ity of mcg/actuati 00:00: 00:00 every 6 [place] on inhaler 00 :00 (six) Medical hours as Branch needed for Wheezing or Shortness of Breath. levothyroxi Yes [id number] 150ug Take 1 [facility] ne 150 mcg 7-05 tablet by ity of tablet 00:00: mouth [place] 00 every Medical morning. Branch Diclofenac Yes [id number] Apply to [facility] Sodium 7-05 area(s) 4 ity of (VOLTAREN) 00:00: (four) [place] 1 % gel 00 times Medical daily. Branch Apply 4 g qid baclofen 10 Yes [id number] 10mg Take 1 [facility] mg tablet 7-05 tablet by ity o f 00:00: mouth 3 00 (three) Medical times Branch daily as needed for Pain (scale 7-10). docusate Yes [id number] 100mg Take 1 Un renetta 100 mg 7-05 capsule by ity of capsule 00:00: mouth 2 00 (two) Medical times Branch daily. glipiZIDE 2021-0 Yes [id number] 2.5mg Take 1 U nivers XL 2.5 mg 7-05 tablet by ity o f 24 hr 00:00: mouth 2 [place] tablet 00 (two) Medical times Branch daily. Lidocaine 5 2021-0 Yes [id number] Apply to [facility] % cream 7-05 area(s) 2 ity of 00:00: (two) [place] 00 times Medical daily as Branch needed for Pain (scale 4-6). Apply 5g to affected areas BID PRN levothyroxi 2021-0 Yes [id number] 150ug Take 1 [facility] ne 150 mcg 7-05 tablet by ity of tablet 00:00: mouth [place] 00 every Medical morning. Branch Diclofenac 2021-0 Yes [id number] Apply to [facility] Sodium 7-05 area(s) 4 ity of (VOLTAREN) 00:00: (four) [place] 1 % gel 00 times Medical daily. Branch Apply 4 g qid baclofen 10 2021-0 Yes [id number] 10mg Take 1 [facility] mg tablet 7-05 tablet by ity o f 00:00: mouth 3 [place] 00 (three) Medical times Branch daily as needed for Pain (scale 7-10). docusate 0 Yes [id number] 100mg Take 1 Un renetta 100 mg 7-05 capsule by ity of capsule 00:00: mouth 2 [place] 00 (two) Medical times Branch daily. glipiZIDE 2021-0 Yes [id number] 2.5mg Take 1 U nivers XL 2.5 mg 7-05 tablet by ity o f 24 hr 00:00: mouth 2 [place] tablet 00 (two) Medical times Branch daily. Lidocaine 5 2021-0 Yes [id number] Apply to [facility] % cream 7-05 area(s) 2 ity of 00:00: (two) [place] 00 times Medical daily as Branch needed for Pain (scale 4-6). Apply 5g to affected areas BID PRN levothyroxi 2021-0 Yes [id number] 150ug Take 1 [facility] ne 150 mcg 7-05 tablet by ity of tablet 00:00: mouth [place] 00 every Medical morning. Branch Diclofenac 2021-0 Yes [id number] Apply to [facility] Sodium 7-05 area(s) 4 ity of (VOLTAREN) 00:00: (four) [place] 1 % gel 00 times Medical daily. Branch Apply 4 g qid baclofen 10 0 Yes [id number] 10mg Take 1 [facility] mg tablet 7-05 tablet by ity o f 00:00: mouth 3 [place] 00 (three) Medical times Branch daily as needed for Pain (scale 7-10). docusate 2021-0 Yes [id number] 100mg Take 1 Un renetta 100 mg 7-05 capsule by ity of capsule 00:00: mouth 2 [place] 00 (two) Medical times Branch daily. glipiZIDE 2021-0 Yes [id number] 2.5mg Take 1 U nivers XL 2.5 mg 7-05 tablet by ity o f 24 hr 00:00: mouth 2 [place] tablet 00 (two) Medical times Branch daily. Lidocaine 5 2021-0 Yes [id number] Apply to [facility] % cream 7-05 area(s) 2 ity of 00:00: (two) [place] 00 times Medical daily as Branch needed for Pain (scale 4-6). Apply 5g to affected areas BID PRN levothyroxi 0 Yes [id number] 150ug Take 1 [facility] ne 150 mcg 7-05 tablet by ity of tablet 00:00: mouth [place] 00 every Medical morning. Branch Diclofenac 0 Yes [id number] Apply to [facility] Sodium 7-05 area(s) 4 ity of (VOLTAREN) 00:00: (four) [place] 1 % gel 00 times Medical daily. Branch Apply 4 g qid baclofen 10 0 Yes [id number] 10mg Take 1 [facility] mg tablet 7-05 tablet by ity o f 00:00: mouth 3 00 (three) Medical times Branch daily as needed for Pain (scale 7-10). docusate 2021-0 Yes [id number] 100mg Take 1 Un renetta 100 mg 7-05 capsule by ity of capsule 00:00: mouth 2 00 (two) Medical times Branch daily. glipiZIDE 2021-0 Yes [id number] 2.5mg Take 1 U nivers XL 2.5 mg 7-05 tablet by ity o f 24 hr 00:00: mouth 2 [place] tablet 00 (two) Medical times Branch daily. Lidocaine 5 2021-0 Yes [id number] Apply to [facility] % cream 7-05 area(s) 2 ity of 00:00: (two) [place] 00 times Medical daily as Branch needed for Pain (scale 4-6). Apply 5g to affected areas BID PRN levothyroxi 0 Yes [id number] 150ug Take 1 [facility] ne 150 mcg 7-05 tablet by ity of tablet 00:00: mouth [place] 00 every Medical morning. Branch Diclofenac Yes [id number] Apply to [facility] Sodium 7-05 area(s) 4 ity of (VOLTAREN) 00:00: (four) [place] 1 % gel 00 times Medical daily. Branch Apply 4 g qid baclofen 10 Yes [id number] 10mg Take 1 [facility] mg tablet 7-05 tablet by ity o f 00:00: mouth 3 [place] 00 (three) Medical times Branch daily as needed for Pain (scale 7-10). docusate Yes [id number] 100mg Take 1 Un renetta 100 mg 7-05 capsule by ity of capsule 00:00: mouth 2 [place] 00 (two) Medical times Branch daily. glipiZIDE Yes [id number] 2.5mg Take 1 U nivers XL 2.5 mg 7-05 tablet by ity o f 24 hr 00:00: mouth 2 [place] tablet 00 (two) Medical times Branch daily. Lidocaine 5 Yes [id number] Apply to [facility] % cream 7-05 area(s) 2 ity of 00:00: (two) [place] 00 times Medical daily as Branch needed for Pain (scale 4-6). Apply 5g to affected areas BID PRN levothyroxi 0 Yes [id number] 150ug Take 1 [facility] ne 150 mcg 7-05 tablet by ity of tablet 00:00: mouth [place] 00 every Medical morning. Branch Diclofenac 2021- Yes [id number] Apply to [facility] Sodium 7-05 area(s) 4 ity of (VOLTAREN) 00:00: (four) [place] 1 % gel 00 times Medical daily. Branch Apply 4 g qid baclofen 10 0 Yes [id number] 10mg Take 1 [facility] mg tablet 7-05 tablet by ity o f 00:00: mouth 3 [place] 00 (three) Medical times Branch daily as needed for Pain (scale 7-10). docusate 0 Yes [id number] 100mg Take 1 Un renetta 100 mg 7-05 capsule by ity of capsule 00:00: mouth 2 [place] 00 (two) Medical times Branch daily. glipiZIDE Yes [id number] 2.5mg Take 1 U nivers XL 2.5 mg 7-05 tablet by ity o f 24 hr 00:00: mouth 2 [place] tablet 00 (two) Medical times Branch daily. Lidocaine 5 2021- Yes [id number] Apply to [facility] % cream 7-05 area(s) 2 ity of 00:00: (two) [place] 00 times Medical daily as Branch needed for Pain (scale 4-6). Apply 5g to affected areas BID PRN levothyroxi Yes [id number] 150ug Take 1 [facility] ne 150 mcg 7-05 tablet by ity of tablet 00:00: mouth [place] 00 every Medical morning. Branch Diclofenac Yes [id number] Apply to [facility] Sodium 7-05 area(s) 4 ity of (VOLTAREN) 00:00: (four) [place] 1 % gel 00 times Medical daily. Branch Apply 4 g qid baclofen 10 Yes [id number] 10mg Take 1 [facility] mg tablet 7-05 tablet by ity o f 00:00: mouth 3 [place] 00 (three) Medical times Branch daily as needed for Pain (scale 7-10). docusate Yes [id number] 100mg Take 1 Un renetta 100 mg 7-05 capsule by ity of capsule 00:00: mouth 2 [place] 00 (two) Medical times Branch daily. glipiZIDE Yes [id number] 2.5mg Take 1 U nivers XL 2.5 mg 7-05 tablet by ity o f 24 hr 00:00: mouth 2 [place] tablet 00 (two) Medical times Branch daily. Lidocaine 5 2021- Yes [id number] Apply to [facility] % cream 7-05 area(s) 2 ity of 00:00: (two) [place] 00 times Medical daily as Branch needed for Pain (scale 4-6). Apply 5g to affected areas BID PRN levothyroxi 2021-0 Yes [id number] 150ug Take 1 [facility] ne 150 mcg 7-05 tablet by ity of tablet 00:00: mouth [place] 00 every Medical morning. Branch Diclofenac Yes [id number] Apply to [facility] Sodium 7-05 area(s) 4 ity of (VOLTAREN) 00:00: (four) [place] 1 % gel 00 times Medical daily. Branch Apply 4 g qid baclofen 10 Yes [id number] 10mg Take 1 [facility] mg tablet 7-05 tablet by ity o f 00:00: mouth 3 00 (three) Medical times Branch daily as needed for Pain (scale 7-10). docusate Yes [id number] 100mg Take 1 Un renetta 100 mg 7-05 capsule by ity of capsule 00:00: mouth 2 [place] 00 (two) Medical times Branch daily. glipiZIDE Yes [id number] 2.5mg Take 1 [facility] XL 2.5 mg 7-05 tablet by [facility] f 24 hr 00:00: mouth 2 [place] tablet 00 (two) Medical times Branch daily. Lidocaine 5 Yes [id number] Apply to [facility] % cream 7-05 area(s) 2 [facility] 00:00: (two) [place] 00 times Medical daily as Branch needed for Pain (scale 4-6). Apply 5g to affected areas BID PRN levothyroxi Yes [id number] 150ug Take 1 [facility] ne 150 mcg 7-05 tablet by [facility] tablet 00:00: mouth 00 every Medical morning. Branch Diclofenac Yes [id number] Apply to [facility] Sodium 7-05 area(s) 4 [facility] of (VOLTAREN) 00:00: (four) [place] 1 % gel 00 times Medical daily. Branch Apply 4 g qid baclofen 10 Yes [id number] 10mg Take 1 [facility] mg tablet 7-05 tablet by [facility] o f 00:00: mouth 3 00 (three) Medical times Branch daily as needed for Pain (scale 7-10). docusate 2021- Yes [id number] 100mg Take 1 [facility] renetta 100 mg 7-05 capsule by [facility] capsule 00:00: mouth 2 00 (two) Medical times Branch daily. glipiZIDE 2021- Yes [id number] 2.5mg Take 1 [facility] XL 2.5 mg 7-05 tablet by [facility] f 24 hr 00:00: mouth 2 [place] tablet 00 (two) Medical times Branch daily. Lidocaine 5 Yes [id number] Apply to [facility] % cream 7-05 area(s) 2 [facility] 00:00: (two) [place] 00 times Medical daily as Branch needed for Pain (scale 4-6). Apply 5g to affected areas BID PRN levothyroxi Yes [id number] 150ug Take 1 [facility] ne 150 mcg 7-05 tablet by [facility] tablet 00:00: mouth [place] 00 every Medical morning. Branch Diclofenac Yes [id number] Apply to [facility] Sodium 7-05 area(s) 4 [facility] of (VOLTAREN) 00:00: (four) [place] 1 % gel 00 times Medical daily. Branch Apply 4 g qid baclofen 10 Yes [id number] 10mg Take 1 [facility] mg tablet 7-05 tablet by [facility] o f 00:00: mouth 3 [place] 00 (three) Medical times Branch daily as needed for Pain (scale 7-10). docusate Yes [id number] 100mg Take 1 [facility] renet[facility] 100 mg 7-05 capsule by [facility] capsule 00:00: mouth 2 [place] 00 (two) Medical times Branch daily. glipiZIDE Yes [id number] 2.5mg Take 1 [facility] XL 2.5 mg 7-05 tablet by [facility] o f 24 hr 00:00: mouth 2 [place] tablet 00 (two) Medical times Branch daily. Lidocaine 5 Yes [id number] Apply to [facility] % cream 7-05 area(s) 2 [facility] 00:00: (two) [place] 00 times Medical daily as Branch needed for Pain (scale 4-6). Apply 5g to affected areas BID PRN levothyroxi Yes [id number] 150ug Take 1 [facility] ne 150 mcg 7-05 tablet by [facility] tablet 00:00: mouth [place] 00 every Medical morning. Branch Diclofenac Yes [id number] Apply to [facility] Sodium 7-05 area(s) 4 [facility] of (VOLTAREN) 00:00: (four) [place] 1 % gel 00 times Medical daily. Branch Apply 4 g qid baclofen 10 0 Yes [id number] 10mg Take 1 [facility] mg tablet 7-05 tablet by [facility] o f 00:00: mouth 3 [place] 00 (three) Medical times Branch daily as needed for Pain (scale 7-10). docusate Yes [id number] 100mg Take 1 [facility] renetta 100 mg 7-05 capsule by [facility] capsule 00:00: mouth 2 [place] 00 (two) Medical times Branch daily. glipiZIDE 0 Yes [id number] 2.5mg Take 1 [facility] XL 2.5 mg 7-05 tablet by [facility] f 24 hr 00:00: mouth 2 [place] tablet 00 (two) Medical times Branch daily. Lidocaine 5 Yes [id number] Apply to [facility] % cream 7-05 area(s) 2 [facility] 00:00: (two) [place] 00 times Medical daily as Branch needed for Pain (scale 4-6). Apply 5g to affected areas BID PRN levothyroxi Yes [id number] 150ug Take 1 [facility] ne 150 mcg 7-05 tablet by [facility] tablet 00:00: mouth [place] 00 every Medical morning. Branch Diclofenac Yes [id number] Apply to [facility] Sodium 7-05 area(s) 4 [facility] of (VOLTAREN) 00:00: (four) [place] 1 % gel 00 times Medical daily. Branch Apply 4 g qid baclofen 10 Yes [id number] 10mg Take 1 [facility] mg tablet 7-05 tablet by [facility] o f 00:00: mouth 3 [place] 00 (three) Medical times Branch daily as needed for Pain (scale 7-10). docusate Yes [id number] 100mg Take 1 [facility] renet[facility] 100 mg 7-05 capsule by [facility] capsule 00:00: mouth 2 00 (two) Medical times Branch daily. glipiZIDE Yes [id number] 2.5mg Take 1 [facility] XL 2.5 mg 7-05 tablet by [facility] o f 24 hr 00:00: mouth 2 [place] tablet 00 (two) Medical times Branch daily. Lidocaine 5 2021- Yes [id number] Apply to [facility] % cream 7-05 area(s) 2 [facility] 00:00: (two) [place] 00 times Medical daily as Branch needed for Pain (scale 4-6). Apply 5g to affected areas BID PRN levothyroxi 2021-0 Yes [id number] 150ug Take 1 [facility] ne 150 mcg 7-05 tablet by [facility] of tablet 00:00: mouth [place] 00 every Medical morning. Branch Diclofenac Yes [id number] Apply to [facility] Sodium 7-05 area(s) 4 [facility] of (VOLTAREN) 00:00: (four) [place] 1 % gel 00 times Medical daily. Branch Apply 4 g qid baclofen 10 Yes [id number] 10mg Take 1 [facility] mg tablet 7-05 tablet by [facility] o f 00:00: mouth 3 (three) Medical times Branch daily as needed for Pain (scale 7-10). docusate 0 Yes [id number] 100mg Take 1 [facility] renetta 100 mg 7-05 capsule by [facility] capsule 00:00: mouth 2 00 (two) Medical times Branch daily. glipiZIDE Yes [id number] 2.5mg Take 1 [facility] XL 2.5 mg 7-05 tablet by [facility] o f 24 hr 00:00: mouth 2 [place] tablet 00 (two) Medical times Branch daily. Lidocaine 5 Yes [id number] Apply to [facility] % cream 7-05 area(s) 2 [facility] 00:00: (two) [place] 00 times Medical daily as Branch needed for Pain (scale 4-6). Apply 5g to affected areas BID PRN levothyroxi Yes [id number] 150ug Take 1 [facility] ne 150 mcg 7-05 tablet by [facility] tablet 00:00: mouth [place] 00 every Medical morning. Branch Diclofenac Yes [id number] Apply to [facility] Sodium 7-05 area(s) 4 [facility] of (VOLTAREN) 00:00: (four) [place] 1 % gel 00 times Medical daily. Branch Apply 4 g qid baclofen 10 Yes [id number] 10mg Take 1 [facility] mg tablet 7-05 tablet by [facility] o f 00:00: mouth 3 [place] 00 (three) Medical times Branch daily as needed for Pain (scale 7-10). docusate 2021-0 Yes [id number] 100mg Take 1 [facility] renetta 100 mg 7-05 capsule by [facility] capsule 00:00: mouth 2 [place] 00 (two) Medical times Branch daily. glipiZIDE 0 Yes [id number] 2.5mg Take 1 [facility] XL 2.5 mg 7-05 tablet by [facility] o f 24 hr 00:00: mouth 2 [place] tablet 00 (two) Medical times Branch daily. Lidocaine 5 2021-0 Yes [id number] Apply to [facility] % cream 7-05 area(s) 2 [facility] 00:00: (two) [place] 00 times Medical daily as Branch needed for Pain (scale 4-6). Apply 5g to affected areas BID PRN levothyroxi 2-0 Yes [id number] 150ug Take 1 [facility] ne 150 mcg 7-05 tablet by [facility] tablet 00:00: mouth [place] 00 every Medical morning. Branch Diclofenac 2021-0 Yes [id number] Apply to [facility] Sodium 7-05 area(s) 4 [facility] of (VOLTAREN) 00:00: (four) [place] 1 % gel 00 times Medical daily. Branch Apply 4 g qid baclofen 10 2021-0 Yes [id number] 10mg Take 1 [facility] mg tablet 7-05 tablet by [facility] o f 00:00: mouth 3 [place] 00 (three) Medical times Branch daily as needed for Pain (scale 7-10). docusate 0 Yes [id number] 100mg Take 1 [facility] renetta 100 mg 7-05 capsule by [facility] capsule 00:00: mouth 2 [place] 00 (two) Medical times Branch daily. glipiZIDE 2021-0 Yes [id number] 2.5mg Take 1 [facility] XL 2.5 mg 7-05 tablet by [facility] o f 24 hr 00:00: mouth 2 [place] tablet 00 (two) Medical times Branch daily. Lidocaine 5 2021-0 Yes [id number] Apply to [facility] % cream 7-05 area(s) 2 [facility] 00:00: (two) [place] 00 times Medical daily as Branch needed for Pain (scale 4-6). Apply 5g to affected areas BID PRN levothyroxi 2021-0 Yes [id number] 150ug Take 1 [facility] ne 150 mcg 7-05 tablet by [facility] of tablet 00:00: mouth [place] 00 every Medical morning. Branch Diclofenac 2021-0 Yes [id number] Apply to [facility] Sodium 7-05 area(s) 4 [facility] of (VOLTAREN) 00:00: (four) [place] 1 % gel 00 times Medical daily. Branch Apply 4 g qid baclofen 10 2021-0 Yes [id number] 10mg Take 1 [facility] mg tablet 7-05 tablet by [facility] o f 00:00: mouth 3 (three) Medical times Branch daily as needed for Pain (scale 7-10). docusate 2021-0 Yes [id number] 100mg Take 1 [facility] renetta 100 mg 7-05 capsule by [facility] capsule 00:00: mouth 2 [place] 00 (two) Medical times Branch daily. glipiZIDE 2021-0 Yes [id number] 2.5mg Take 1 [facility] XL 2.5 mg 7-05 tablet by [facility] o f 24 hr 00:00: mouth 2 [place] tablet 00 (two) Medical times Branch daily. Lidocaine 5 2021-0 Yes [id number] Apply to [facility] % cream 7-05 area(s) 2 [facility] 00:00: (two) [place] 00 times Medical daily as Branch needed for Pain (scale 4-6). Apply 5g to affected areas BID PRN levothyroxi 2021-0 Yes [id number] 150ug Take 1 [facility] ne 150 mcg 7-05 tablet by [facility] tablet 00:00: mouth 00 every Medical morning. Branch Diclofenac Yes [id number] Apply to [facility] Sodium 7-05 area(s) 4 [facility] of (VOLTAREN) 00:00: (four) [place] 1 % gel 00 times Medical daily. Branch Apply 4 g qid baclofen 10 2021-0 Yes [id number] 10mg Take 1 [facility] mg tablet 7-05 tablet by [facility] o f 00:00: mouth 3 00 (three) Medical times Branch daily as needed for Pain (scale 7-10). docusate 2021-0 Yes [id number] 100mg Take 1 [facility] renetta 100 mg 7-05 capsule by [facility] capsule 00:00: mouth 2 00 (two) Medical times Branch daily. glipiZIDE 2021-0 Yes [id number] 2.5mg Take 1 [facility] XL 2.5 mg 7-05 tablet by [facility] o f 24 hr 00:00: mouth 2 [place] tablet 00 (two) Medical times Branch daily. Lidocaine 5 2021-0 Yes [id number] Apply to [facility] % cream 7-05 area(s) 2 [facility] 00:00: (two) [place] 00 times Medical daily as Branch needed for Pain (scale 4-6). Apply 5g to affected areas BID PRN levothyroxi 2021-0 Yes [id number] 150ug Take 1 [facility] ne 150 mcg 7-05 tablet by [facility] of tablet 00:00: mouth [place] 00 every Medical morning. Branch Diclofenac Yes [id number] Apply to [facility] Sodium 7-05 area(s) 4 [facility] of (VOLTAREN) 00:00: (four) [place] 1 % gel 00 times Medical daily. Branch Apply 4 g qid baclofen 10 Yes [id number] 10mg Take 1 [facility] mg tablet 7-05 tablet by [facility] o f 00:00: mouth 3 [place] 00 (three) Medical times Branch daily as needed for Pain (scale 7-10). docusate Yes [id number] 100mg Take 1 [facility] renetta 100 mg 7-05 capsule by [facility] capsule 00:00: mouth 2 [place] 00 (two) Medical times Branch daily. glipiZIDE Yes [id number] 2.5mg Take 1 [facility] XL 2.5 mg 7-05 tablet by [facility] o f 24 hr 00:00: mouth 2 [place] tablet 00 (two) Medical times Branch daily. Lidocaine 5 Yes [id number] Apply to [facility] % cream 7-05 area(s) 2 [facility] 00:00: (two) [place] 00 times Medical daily as Branch needed for Pain (scale 4-6). Apply 5g to affected areas BID PRN levothyroxi Yes [id number] 150ug Take 1 [facility] ne 150 mcg 7-05 tablet by [facility] of tablet 00:00: mouth [place] 00 every Medical morning. Branch Diclofenac Yes [id number] Apply to [facility] Sodium 7-05 area(s) 4 [facility] of (VOLTAREN) 00:00: (four) [place] 1 % gel 00 times Medical daily. Branch Apply 4 g qid baclofen 10 Yes [id number] 10mg Take 1 [facility] mg tablet 7-05 tablet by [facility] o f 00:00: mouth 3 [place] 00 (three) Medical times Branch daily as needed for Pain (scale 7-10). docusate 0 Yes [id number] 100mg Take 1 Un renetta 100 mg 7-05 capsule by [facility] capsule 00:00: mouth 2 [place] 00 (two) Medical times Branch daily. glipiZIDE Yes [id number] 2.5mg Take 1 [facility] XL 2.5 mg 7-05 tablet by [facility] o f 24 hr 00:00: mouth 2 [place] tablet 00 (two) Medical times Branch daily. Lidocaine 5 2021-0 Yes [id number] Apply to [facility] % cream 7-05 area(s) 2 [facility] 00:00: (two) [place] 00 times Medical daily as Branch needed for Pain (scale 4-6). Apply 5g to affected areas BID PRN levothyroxi 2021-0 Yes [id number] 150ug Take 1 [facility] ne 150 mcg 7-05 tablet by [facility] of tablet 00:00: mouth [place] 00 every Medical morning. Branch Diclofenac 2021- Yes [id number] Apply to [facility] Sodium 7-05 area(s) 4 [facility] of (VOLTAREN) 00:00: (four) [place] 1 % gel 00 times Medical daily. Branch Apply 4 g qid baclofen 10 Yes [id number] 10mg Take 1 [facility] mg tablet 7-05 tablet by [facility] o f 00:00: mouth 3 [place] 00 (three) Medical times Branch daily as needed for Pain (scale 7-10). docusate Yes [id number] 100mg Take 1 Un renetta 100 mg 7-05 capsule by [facility] capsule 00:00: mouth 2 [place] 00 (two) Medical times Branch daily. glipiZIDE Yes [id number] 2.5mg Take 1 [facility] XL 2.5 mg 7-05 tablet by [facility] o f 24 hr 00:00: mouth 2 [place] tablet 00 (two) Medical times Branch daily. Lidocaine 5 2021-0 Yes [id number] Apply to [facility] % cream 7-05 area(s) 2 [facility] 00:00: (two) [place] 00 times Medical daily as Branch needed for Pain (scale 4-6). Apply 5g to affected areas BID PRN levothyroxi 2021-0 Yes [id number] 150ug Take 1 [facility] ne 150 mcg 7-05 tablet by [facility] of tablet 00:00: mouth [place] 00 every Medical morning. Branch Diclofenac 2021-0 Yes [id number] Apply to [facility] Sodium 7-05 area(s) 4 [facility] of (VOLTAREN) 00:00: (four) [place] 1 % gel 00 times Medical daily. Branch Apply 4 g qid baclofen 10 Yes [id number] 10mg Take 1 [facility] mg tablet 7-05 tablet by [facility] o f 00:00: mouth 3 [place] 00 (three) Medical times Branch daily as needed for Pain (scale 7-10). glipiZIDE Yes [id number] 2.5mg Take 1 [facility] XL 2.5 mg 7-05 tablet by [facility] o f 24 hr 00:00: mouth 2 [place] tablet 00 (two) Medical times Branch daily. Lidocaine 5 Yes [id number] Apply to [facility] % cream 7-05 area(s) 2 [facility] 00:00: (two) [place] 00 times Medical daily as Branch needed for Pain (scale 4-6). Apply 5g to affected areas BID PRN levothyroxi Yes [id number] 150ug Take 1 [facility] ne 150 mcg 7-05 tablet by [facility] of tablet 00:00: mouth [place] 00 every Medical morning. Branch Diclofenac Yes [id number] Apply to [facility] Sodium 7-05 area(s) 4 [facility] of (VOLTAREN) 00:00: (four) [place] 1 % gel 00 times Medical daily. Branch Apply 4 g qid baclofen 10 Yes [id number] 10mg Take 1 [facility] mg tablet 7-05 tablet by [facility] o f 00:00: mouth 3 [place] 00 (three) Medical times Branch daily as needed for Pain (scale 7-10). glipiZIDE Yes [id number] 2.5mg Take 1 [facility] XL 2.5 mg 7-05 tablet by [facility] o f 24 hr 00:00: mouth 2 [place] tablet 00 (two) Medical times Branch daily. Lidocaine 5 Yes [id number] Apply to [facility] % cream 7-05 area(s) 2 [facility] 00:00: (two) [place] 00 times Medical daily as Branch needed for Pain (scale 4-6). Apply 5g to affected areas BID PRN levothyroxi Yes [id number] 150ug Take 1 [facility] ne 150 mcg 7-05 tablet by [facility] of tablet 00:00: mouth [place] 00 every Medical morning. Branch Diclofenac Yes [id number] Apply to [facility] Sodium 7-05 area(s) 4 [facility] of (VOLTAREN) 00:00: (four) [place] 1 % gel 00 times Medical daily. Branch Apply 4 g qid baclofen 10 Yes [id number] 10mg Take 1 [facility] mg tablet 7-05 tablet by [facility] o f 00:00: mouth 3 [place] 00 (three) Medical times Branch daily as needed for Pain (scale 7-10). glipiZIDE Yes [id number] 2.5mg Take 1 [facility] XL 2.5 mg 7-05 tablet by [facility] o f 24 hr 00:00: mouth 2 [place] tablet 00 (two) Medical times Branch daily. Lidocaine 5 2021-0 Yes [id number] Apply to [facility] % cream 7-05 area(s) 2 [facility] of 00:00: (two) [place] 00 times Medical daily as Branch needed for Pain (scale 4-6). Apply 5g to affected areas BID PRN levothyroxi Yes [id number] 150ug Take 1 [facility] ne 150 mcg 7-05 tablet by [facility] of tablet 00:00: mouth [place] 00 every Medical morning. Branch Diclofenac Yes [id number] Apply to [facility] Sodium 7-05 area(s) 4 [facility] of (VOLTAREN) 00:00: (four) [place] 1 % gel 00 times Medical daily. Branch Apply 4 g qid baclofen 10 Yes [id number] 10mg Take 1 [facility] mg tablet 7-05 tablet by [facility] o f 00:00: mouth 3 [place] 00 (three) Medical times Branch daily as needed for Pain (scale 7-10). glipiZIDE Yes [id number] 2.5mg Take 1 [facility] XL 2.5 mg 7-05 tablet by [facility] o f 24 hr 00:00: mouth 2 [place] tablet 00 (two) Medical times Branch daily. Lidocaine 5 2021-0 Yes [id number] Apply to [facility] % cream 7-05 area(s) 2 [facility] 00:00: (two) [place] 00 times Medical daily as Branch needed for Pain (scale 4-6). Apply 5g to affected areas BID PRN levothyroxi 2021-0 Yes [id number] 150ug Take 1 [facility] ne 150 mcg 7-05 tablet by [facility] of tablet 00:00: mouth [place] 00 every Medical morning. Branch Diclofenac Yes [id number] Apply to [facility] Sodium 7-05 area(s) 4 [facility] of (VOLTAREN) 00:00: (four) [place] 1 % gel 00 times Medical daily. Branch Apply 4 g qid baclofen 10 0 Yes [id number] 10mg Take 1 [facility] mg tablet 7-05 tablet by [facility] o f 00:00: mouth 3 [place] 00 (three) Medical times Branch daily as needed for Pain (scale 7-10). glipiZIDE Yes [id number] 2.5mg Take 1 [facility] n[facility] XL 2.5 mg 7-05 tablet by [facility] o f 24 hr 00:00: mouth 2 [place] tablet 00 (two) Medical times Branch daily. Lidocaine 5 2021-0 Yes [id number] Apply to [facility] % cream 7-05 area(s) 2 [facility] of 00:00: (two) [place] 00 times Medical daily as Branch needed for Pain (scale 4-6). Apply 5g to affected areas BID PRN levothyroxi 2021-0 Yes [id number] 150ug Take 1 [facility] ne 150 mcg 7-05 tablet by [facility] of tablet 00:00: mouth [place] 00 every Medical morning. Branch Diclofenac Yes [id number] Apply to [facility] Sodium 7-05 area(s) 4 [facility] of (VOLTAREN) 00:00: (four) [place] 1 % gel 00 times Medical daily. Branch Apply 4 g qid baclofen 10 Yes [id number] 10mg Take 1 [facility] mg tablet 7-05 tablet by [facility] o f 00:00: mouth 3 [place] 00 (three) Medical times Branch daily as needed for Pain (scale 7-10). glipiZIDE Yes [id number] 2.5mg Take 1 [facility] XL 2.5 mg 7-05 tablet by [facility] o f 24 hr 00:00: mouth 2 [place] tablet 00 (two) Medical times Branch daily. Lidocaine 5 2021-0 Yes [id number] Apply to [facility] % cream 7-05 area(s) 2 [facility] of 00:00: (two) [place] 00 times Medical daily as Branch needed for Pain (scale 4-6). Apply 5g to affected areas BID PRN levothyroxi 2021-0 Yes [id number] 150ug Take 1 [facility] ne 150 mcg 7-05 tablet by [facility] of tablet 00:00: mouth [place] 00 every Medical morning. Branch Diclofenac 2021-0 Yes [id number] Apply to [facility] Sodium 7-05 area(s) 4 [facility]y of (VOLTAREN) 00:00: (four) [place] 1 % gel 00 times Medical daily. Branch Apply 4 g qid glipiZIDE 2021-0 Yes [id number] 2.5mg Take 1 [facility] n[facility] XL 2.5 mg 7-05 tablet by [facility] o f 24 hr 00:00: mouth 2 [place] tablet 00 (two) Medical times Branch daily. Lidocaine 5 2021-0 Yes [id number] Apply to [facility] % cream 7-05 area(s) 2 [facility] of 00:00: (two) [place] 00 times Medical daily as Branch needed for Pain (scale 4-6). Apply 5g to affected areas BID PRN levothyroxi 2-0 Yes [id number] 150ug Take 1 [facility] ne 150 mcg 7-05 tablet by [facility] of tablet 00:00: mouth [place] 00 every Medical morning. Branch Diclofenac 2021-0 Yes [id number] Apply to [facility] Sodium 7-05 area(s) 4 [facility]y of (VOLTAREN) 00:00: (four) [place] 1 % gel 00 times Medical daily. Branch Apply 4 g qid glipiZIDE 2021-0 Yes [id number] 2.5mg Take 1 [facility] n[facility] XL 2.5 mg 7-05 tablet by [facility] o f 24 hr 00:00: mouth 2 [place] tablet 00 (two) Medical times Branch daily. Lidocaine 5 2021-0 Yes [id number] Apply to [facility] % cream 7-05 area(s) 2 [facility] of 00:00: (two) [place] 00 times Medical daily as Branch needed for Pain (scale 4-6). Apply 5g to affected areas BID PRN levothyroxi 2-0 Yes [id number] 150ug Take 1 [facility] ne 150 mcg 7-05 tablet by [facility] of tablet 00:00: mouth [place] 00 every Medical morning. Branch Diclofenac 2-0 Yes [id number] Apply to [facility] Sodium 7-05 area(s) 4 [facility] of (VOLTAREN) 00:00: (four) [place] 1 % gel 00 times Medical daily. Branch Apply 4 g qid glipiZIDE 2-0 Yes [id number] 2.5mg Take 1 [facility] XL 2.5 mg 7-05 tablet by [facility] o f 24 hr 00:00: mouth 2 [place] tablet 00 (two) Medical times Branch daily. Lidocaine 5 2021-0 Yes [id number] Apply to [facility] % cream 7-05 area(s) 2 [facility] of 00:00: (two) [place] 00 times Medical daily as Branch needed for Pain (scale 4-6). Apply 5g to affected areas BID PRN levothyroxi 2021-0 Yes [id number] 150ug Take 1 [facility] ne 150 mcg 7-05 tablet by [facility] of tablet 00:00: mouth [place] 00 every Medical morning. Branch Diclofenac 2021-0 Yes [id number] Apply to [facility] Sodium 7-05 area(s) 4 [facility]y of (VOLTAREN) 00:00: (four) [place] 1 % gel 00 times Medical daily. Branch Apply 4 g qid glipiZIDE 2021-0 Yes [id number] 2.5mg Take 1 [facility] XL 2.5 mg 7-05 tablet by [facility] o f 24 hr 00:00: mouth 2 [place] tablet 00 (two) Medical times Branch daily. Lidocaine 5 2021- Yes [id number] Apply to [facility] % cream 7-05 area(s) 2 [facility] of 00:00: (two) [place] 00 times Medical daily as Branch needed for Pain (scale 4-6). Apply 5g to affected areas BID PRN levothyroxi 2021-0 Yes [id number] 150ug Take 1 [facility] ne 150 mcg 7-05 tablet by [facility] of tablet 00:00: mouth [place] 00 every Medical morning. Branch Diclofenac 2021-0 Yes [id number] Apply to [facility] Sodium 7-05 area(s) 4 [facility]y of (VOLTAREN) 00:00: (four) [place] 1 % gel 00 times Medical daily. Branch Apply 4 g qid glipiZIDE 2021-0 Yes [id number] 2.5mg Take 1 [facility] XL 2.5 mg 7-05 tablet by [facility] o f 24 hr 00:00: mouth 2 [place] tablet 00 (two) Medical times Branch daily. Lidocaine 5 2021-0 Yes [id number] Apply to [facility] % cream 7-05 area(s) 2 [facility] of 00:00: (two) [place] 00 times Medical daily as Branch needed for Pain (scale 4-6). Apply 5g to affected areas BID PRN levothyroxi 2021-0 Yes [id number] 150ug Take 1 [facility] ne 150 mcg 7-05 tablet by [facility] of tablet 00:00: mouth [place] 00 every Medical morning. Branch Diclofenac 2021-0 Yes [id number] Apply to [facility] Sodium 7-05 area(s) 4 [facility]y of (VOLTAREN) 00:00: (four) [place] 1 % gel 00 times Medical daily. Branch Apply 4 g qid glipiZIDE 2021-0 Yes [id number] 2.5mg Take 1 [facility] XL 2.5 mg 7-05 tablet by [facility] o f 24 hr 00:00: mouth 2 [place] tablet 00 (two) Medical times Branch daily. Lidocaine 5 2021-0 Yes [id number] Apply to [facility] % cream 7-05 area(s) 2 [facility] of 00:00: (two) [place] 00 times Medical daily as Branch needed for Pain (scale 4-6). Apply 5g to affected areas BID PRN levothyroxi 2021-0 Yes [id number] 150ug Take 1 [facility] ne 150 mcg 7-05 tablet by [facility] of tablet 00:00: mouth [place] 00 every Medical morning. Branch Diclofenac 2021-0 Yes [id number] Apply to [facility] Sodium 7-05 area(s) 4 ity of (VOLTAREN) 00:00: (four) [place] 1 % gel 00 times Medical daily. Branch Apply 4 g qid glipiZIDE 2021-0 Yes [id number] 2.5mg Take 1 [facility] XL 2.5 mg 7-05 tablet by [facility] o f 24 hr 00:00: mouth 2 [place] tablet 00 (two) Medical times Branch daily. Lidocaine 5 2021-0 Yes [id number] Apply to [facility] % cream 7-05 area(s) 2 [facility] of 00:00: (two) [place] 00 times Medical daily as Branch needed for Pain (scale 4-6). Apply 5g to affected areas BID PRN levothyroxi 2021-0 Yes [id number] 150ug Take 1 [facility] ne 150 mcg 7-05 tablet by [facility] of tablet 00:00: mouth [place] 00 every Medical morning. Branch Diclofenac 2021-0 Yes [id number] Apply to [facility] Sodium 7-05 area(s) 4 ity of (VOLTAREN) 00:00: (four) [place] 1 % gel 00 times Medical daily. Branch Apply 4 g qid glipiZIDE 2021-0 Yes [id number] 2.5mg Take 1 [facility] XL 2.5 mg 7-05 tablet by [facility] o f 24 hr 00:00: mouth 2 [place] tablet 00 (two) Medical times Branch daily. Lidocaine 5 2021-0 Yes [id number] Apply to [facility] % cream 7-05 area(s) 2 [facility] of 00:00: (two) [place] 00 times Medical daily as Branch needed for Pain (scale 4-6). Apply 5g to affected areas BID PRN levothyroxi 2021-0 Yes [id number] 150ug Take 1 [facility] ne 150 mcg 7-05 tablet by [facility] of tablet 00:00: mouth [place] 00 every Medical morning. Branch Diclofenac 2021-0 Yes [id number] Apply to [facility] Sodium 7-05 area(s) 4 ity of (VOLTAREN) 00:00: (four) [place] 1 % gel 00 times Medical daily. Branch Apply 4 g qid glipiZIDE 2021-0 Yes [id number] 2.5mg Take 1 [facility] XL 2.5 mg 7-05 tablet by it[facility] o f 24 hr 00:00: mouth 2 [place] tablet 00 (two) Medical times Branch daily. Lidocaine 5 2021-0 Yes [id number] Apply to [facility] % cream 7-05 area(s) 2 [facility] of 00:00: (two) [place] 00 times Medical daily as Branch needed for Pain (scale 4-6). Apply 5g to affected areas BID PRN levothyroxi 2021-0 Yes [id number] 150ug Take 1 [facility] ne 150 mcg 7-05 tablet by [facility] of tablet 00:00: mouth [place] 00 every Medical morning. Branch Diclofenac 2021-0 Yes [id number] Apply to [facility] Sodium 7-05 area(s) 4 ity of (VOLTAREN) 00:00: (four) [place] 1 % gel 00 times Medical daily. Branch Apply 4 g qid glipiZIDE 2021-0 Yes [id number] 2.5mg Take 1 [facility] XL 2.5 mg 7-05 tablet by [facility] o f 24 hr 00:00: mouth 2 [place] tablet 00 (two) Medical times Branch daily. Lidocaine 5 2021-0 Yes [id number] Apply to [facility] % cream 7-05 area(s) 2 [facility] of 00:00: (two) [place] 00 times Medical daily as Branch needed for Pain (scale 4-6). Apply 5g to affected areas BID PRN levothyroxi 2022-0 Yes [id number] 150ug Take 1 [facility] ne 150 mcg 7-05 tablet by [facility] of tablet 00:00: mouth [place] 00 every Medical morning. Branch Diclofenac 2021-0 Yes [id number] Apply to [facility] Sodium 7-05 area(s) 4 ity of (VOLTAREN) 00:00: (four) [place] 1 % gel 00 times Medical daily. Branch Apply 4 g qid glipiZIDE 2021-0 Yes [id number] 2.5mg Take 1 [facility] n[facility] XL 2.5 mg 7-05 tablet by [facility] o f 24 hr 00:00: mouth 2 [place] tablet 00 (two) Medical times Branch daily. Lidocaine 5 2021-0 Yes [id number] Apply to [facility] % cream 7-05 area(s) 2 [facility] of 00:00: (two) [place] 00 times Medical daily as Branch needed for Pain (scale 4-6). Apply 5g to affected areas BID PRN levothyroxi 2021-0 Yes [id number] 150ug Take 1 [facility] ne 150 mcg 7-05 tablet by [facility] tablet 00:00: mouth [place] 00 every Medical morning. Branch Diclofenac 2021-0 Yes [id number] Apply to [facility] Sodium 7-05 area(s) 4 [facility] of (VOLTAREN) 00:00: (four) [place] 1 % gel 00 times Medical daily. Branch Apply 4 g qid glipiZIDE 2021-0 Yes [id number] 2.5mg Take 1 [facility] n[facility] XL 2.5 mg 7-05 tablet by [facility] o f 24 hr 00:00: mouth 2 [place] tablet 00 (two) Medical times Branch daily. Lidocaine 5 2021-0 Yes [id number] Apply to [facility] % cream 7-05 area(s) 2 [facility] of 00:00: (two) [place] 00 times Medical daily as Branch needed for Pain (scale 4-6). Apply 5g to affected areas BID PRN levothyroxi 2022-0 Yes [id number] 150ug Take 1 [facility] ne 150 mcg 7-05 tablet by [facility] tablet 00:00: mouth [place] 00 every Medical morning. Branch Diclofenac 2-0 Yes [id number] Apply to [facility] Sodium 7-05 area(s) 4 [facility] of (VOLTAREN) 00:00: (four) [place] 1 % gel 00 times Medical daily. Branch Apply 4 g qid glipiZIDE 2021-0 Yes [id number] 2.5mg Take 1 [facility] n[facility] XL 2.5 mg 7-05 tablet by [facility] o f 24 hr 00:00: mouth 2 [place] tablet 00 (two) Medical times Branch daily. Lidocaine 5 2021-0 Yes [id number] Apply to [facility] % cream 7-05 area(s) 2 [facility] of 00:00: (two) [place] 00 times Medical daily as Branch needed for Pain (scale 4-6). Apply 5g to affected areas BID PRN levothyroxi 2-0 Yes [id number] 150ug Take 1 [facility] ne 150 mcg 7-05 tablet by [facility] of tablet 00:00: mouth [place] 00 every Medical morning. Branch Diclofenac 2021-0 Yes [id number] Apply to [facility] Sodium 7-05 area(s) 4 [facility] of (VOLTAREN) 00:00: (four) [place] 1 % gel 00 times Medical daily. Branch Apply 4 g qid glipiZIDE 2021-0 Yes [id number] 2.5mg Take 1 [facility] n[facility] XL 2.5 mg 7-05 tablet by [facility] o f 24 hr 00:00: mouth 2 [place] tablet 00 (two) Medical times Branch daily. Lidocaine 5 2021-0 Yes [id number] Apply to [facility] % cream 7-05 area(s) 2 [facility] of 00:00: (two) [place] 00 times Medical daily as Branch needed for Pain (scale 4-6). Apply 5g to affected areas BID PRN levothyroxi 2-0 Yes [id number] 150ug Take 1 [facility] ne 150 mcg 7-05 tablet by [facility] of tablet 00:00: mouth [place] 00 every Medical morning. Branch Diclofenac 2021-0 Yes [id number] Apply to [facility] Sodium 7-05 area(s) 4 [facility] of (VOLTAREN) 00:00: (four) [place] 1 % gel 00 times Medical daily. Branch Apply 4 g qid glipiZIDE 2-0 Yes [id number] 2.5mg Take 1 [facility] XL 2.5 mg 7-05 tablet by [facility] o f 24 hr 00:00: mouth 2 [place] tablet 00 (two) Medical times Branch daily. Lidocaine 5 2021-0 Yes [id number] Apply to [facility] % cream 7-05 area(s) 2 [facility] of 00:00: (two) [place] 00 times Medical daily as Branch needed for Pain (scale 4-6). Apply 5g to affected areas BID PRN levothyroxi 2022-0 Yes [id number] 150ug Take 1 [facility] ne 150 mcg 7-05 tablet by [facility] of tablet 00:00: mouth [place] 00 every Medical morning. Branch Diclofenac 2021-0 Yes [id number] Apply to [facility] Sodium 7-05 area(s) 4 [facility] of (VOLTAREN) 00:00: (four) [place] 1 % gel 00 times Medical daily. Branch Apply 4 g qid glipiZIDE 2021-0 Yes [id number] 2.5mg Take 1 [facility] XL 2.5 mg 7-05 tablet by [facility] o f 24 hr 00:00: mouth 2 [place] tablet 00 (two) Medical times Branch daily. Lidocaine 5 2021-0 Yes [id number] Apply to [facility] % cream 7-05 area(s) 2 [facility] of 00:00: (two) [place] 00 times Medical daily as Branch needed for Pain (scale 4-6). Apply 5g to affected areas BID PRN levothyroxi 2-0 Yes [id number] 150ug Take 1 [facility] ne 150 mcg 7-05 tablet by [facility] of tablet 00:00: mouth [place] 00 every Medical morning. Branch Diclofenac 2021-0 Yes [id number] Apply to [facility] Sodium 7-05 area(s) 4 [facility] of (VOLTAREN) 00:00: (four) [place] 1 % gel 00 times Medical daily. Branch Apply 4 g qid glipiZIDE 2-0 Yes [id number] 2.5mg Take 1 [facility] XL 2.5 mg 7-05 tablet by [facility] o f 24 hr 00:00: mouth 2 [place] tablet 00 (two) Medical times Branch daily. Lidocaine 5 2021-0 Yes [id number] Apply to [facility] % cream 7-05 area(s) 2 [facility] of 00:00: (two) [place] 00 times Medical daily as Branch needed for Pain (scale 4-6). Apply 5g to affected areas BID PRN levothyroxi 2022-0 Yes [id number] 150ug Take 1 [facility] ne 150 mcg 7-05 tablet by [facility] of tablet 00:00: mouth [place] 00 every Medical morning. Branch Diclofenac 2022-0 Yes [id number] Apply to [facility] Sodium 7-05 area(s) 4 [facility] of (VOLTAREN) 00:00: (four) [place] 1 % gel 00 times Medical daily. Branch Apply 4 g qid glipiZIDE 2021-0 Yes [id number] 2.5mg Take 1 [facility] XL 2.5 mg 7-05 tablet by [facility] o f 24 hr 00:00: mouth 2 [place] tablet 00 (two) Medical times Branch daily. Lidocaine 5 2021-0 Yes [id number] Apply to [facility] % cream 7-05 area(s) 2 [facility] of 00:00: (two) [place] 00 times Medical daily as Branch needed for Pain (scale 4-6). Apply 5g to affected areas BID PRN levothyroxi 2021-0 Yes [id number] 150ug Take 1 [facility] ne 150 mcg 7-05 tablet by [facility] of tablet 00:00: mouth [place] 00 every Medical morning. Branch Diclofenac 2021-0 Yes [id number] Apply to [facility] Sodium 7-05 area(s) 4 [facility] of (VOLTAREN) 00:00: (four) [place] 1 % gel 00 times Medical daily. Branch Apply 4 g qid glipiZIDE 2021-0 Yes [id number] 2.5mg Take 1 [facility] XL 2.5 mg 7-05 tablet by [facility] o f 24 hr 00:00: mouth 2 [place] tablet 00 (two) Medical times Branch daily. Lidocaine 5 2021-0 Yes [id number] Apply to [facility] % cream 7-05 area(s) 2 [facility] of 00:00: (two) [place] 00 times Medical daily as Branch needed for Pain (scale 4-6). Apply 5g to affected areas BID PRN levothyroxi 2-0 Yes [id number] 150ug Take 1 [facility] ne 150 mcg 7-05 tablet by [facility] of tablet 00:00: mouth [place] 00 every Medical morning. Branch Diclofenac 2-0 Yes [id number] Apply to [facility] Sodium 7-05 area(s) 4 [facility] of (VOLTAREN) 00:00: (four) [place] 1 % gel 00 times Medical daily. Branch Apply 4 g qid glipiZIDE 2021-0 Yes [id number] 2.5mg Take 1 [facility] XL 2.5 mg 7-05 tablet by [facility] o f 24 hr 00:00: mouth 2 [place] tablet 00 (two) Medical times Branch daily. Lidocaine 5 2021-0 Yes [id number] Apply to [facility] % cream 7-05 area(s) 2 [facility] of 00:00: (two) [place] 00 times Medical daily as Branch needed for Pain (scale 4-6). Apply 5g to affected areas BID PRN levothyroxi 2021-0 Yes [id number] 150ug Take 1 [facility] ne 150 mcg 7-05 tablet by [facility] of tablet 00:00: mouth [place] 00 every Medical morning. Branch Diclofenac Yes [id number] Apply to [facility] Sodium 7-05 area(s) 4 [facility] of (VOLTAREN) 00:00: (four) [place] 1 % gel 00 times Medical daily. Branch Apply 4 g qid glipiZIDE Yes [id number] 2.5mg Take 1 [facility] XL 2.5 mg 7-05 tablet by [facility] o f 24 hr 00:00: mouth 2 [place] tablet 00 (two) Medical times Branch daily. Lidocaine 5 Yes [id number] Apply to [facility] % cream 7-05 area(s) 2 [facility] of 00:00: (two) [place] 00 times Medical daily as Branch needed for Pain (scale 4-6). Apply 5g to affected areas BID PRN levothyroxi 2021-2022- No [id number] 150ug Take 1 [facility] ne 150 mcg 7-05 01-05 tablet by [facility] of tablet 00:00: 00:00 mouth [place] 00 :00 every Medical morning. Branch Diclofenac 2021-0 2022- No [id number] Apply to [facility] Sodium 7-05 01-05 area(s) 4 [facility] of (VOLTAREN) 00:00: 00:00 (four) [place] 1 % gel 00 :00 times Medical daily. Branch Apply 4 g qid glipiZIDE 2021-0 3- No [id number] 2.5mg Take 1 [facility] XL 2.5 mg 7-05 01-05 tablet by [facility] of 24 hr 00:00: 00:00 mouth 2 [place] tablet 00 :00 (two) Medical times Branch daily. Lidocaine 5 2021-0 2022- No [id number] Apply to [facility] % cream 7-05 01-05 area(s) 2 [facility] of 00:00: 00:00 (two) [place] 00 :00 times Medical daily as Branch needed for Pain (scale 4-6). Apply 5g to affected areas BID PRN levothyroxi 2022- No [id number] 150ug Take 1 [facility] ne 150 mcg 09-05 tablet by [facility] of tablet 00:00: 00:00 mouth [place] 00 :00 every Medical morning. Branch Diclofenac 2022- No [id number] Apply to [facility] Sodium 09-05 area(s) 4 [facility] of (VOLTAREN) 00:00: 00:00 (four) [place] 1 % gel 00 :00 times Medical daily. Branch Apply 4 g qid glipiZIDE 2022- No [id number] 2.5mg Take 1 [facility] XL 2.5 mg 09-05 tablet by [facility] of 24 hr 00:00: 00:00 mouth 2 [place] tablet 00 :00 (two) Medical times Branch daily. Lidocaine 5 2022- No [id number] Apply to [facility] % cream 09-05 area(s) 2 [facility] of 00:00: 00:00 (two) [place] 00 :00 times Medical daily as Branch needed for Pain (scale 4-6). Apply 5g to affected areas BID PRN levothyroxi 2022- No [id number] 150ug Take 1 [facility] ne 150 mcg 09-05 tablet by [facility] of tablet 00:00: 00:00 mouth [place] 00 :00 every Medical morning. Branch Diclofenac 2022- No [id number] Apply to [facility] Sodium 09-05 area(s) 4 [facility] of (VOLTAREN) 00:00: 00:00 (four) [place] 1 % gel 00 :00 times Medical daily. Branch Apply 4 g qid glipiZIDE 2022- No [id number] 2.5mg Take 1 [facility] XL 2.5 mg 09-05 tablet by [facility] of 24 hr 00:00: 00:00 mouth 2 [place] tablet 00 :00 (two) Medical times Branch daily. Lidocaine 5 2022- No [id number] Apply to [facility] % cream 09-05 area(s) 2 [facility] of 00:00: 00:00 (two) [place] 00 :00 times Medical daily as Branch needed for Pain (scale 4-6). Apply 5g to affected areas BID PRN levothyroxi 2022- No [id number] 150ug Take 1 [facility] ne 150 mcg 09-05 tablet by [facility] of tablet 00:00: 00:00 mouth [place] 00 :00 every Medical morning. Branch Diclofenac 2022- No [id number] Apply to [facility] Sodium 09-05 area(s) 4 [facility] of (VOLTAREN) 00:00: 00:00 (four) [place] 1 % gel 00 :00 times Medical daily. Branch Apply 4 g qid glipiZIDE 2022- No [id number] 2.5mg Take 1 [facility] XL 2.5 mg 09-05 tablet by [facility] of 24 hr 00:00: 00:00 mouth 2 [place] tablet 00 :00 (two) Medical times Branch daily. Lidocaine 5 2022- No [id number] Apply to [facility] % cream 09-05 area(s) 2 [facility] of 00:00: 00:00 (two) [place] 00 :00 times Medical daily as Branch needed for Pain (scale 4-6). Apply 5g to affected areas BID PRN baclofen 10 2021- No [id number] 10mg Take 1 [facility] mg tablet 09-05 tablet by [facility] of 00:00: 00:00 mouth 3 [place] 00 :00 (three) Medical times Branch daily as needed for Pain (scale 7-10). docusate 2021- No [id number] 100mg Take 1 [facility] nivers 100 mg -07 11-05 capsule by [facility] of capsule 00:00: 00:00 mouth 2 [place] 00 :00 (two) Medical times Branch daily. docusate 2021- No [id number] 100mg Take 1 [facility] 100 mg - 10-05 capsule by [facility] of capsule 00:00: 00:00 mouth 2 [place] 00 :00 (two) Medical times Branch daily. docusate 2021- No [id number] 100mg Take 1 [facility] nivers 100 mg -07 11-05 capsule by [facility] of capsule 00:00: 00:00 mouth 2 [place] 00 :00 (two) Medical times Branch daily. pravastatin 2021-0 Yes [id number] 40mg Take 1 [facility] 40 mg 3-30 tablet by [facility] of tablet 00:00: mouth at [place] 00 bedtime. Medical Branch tamsulosin 0 Yes [id number] .4mg Take 1 [facility] 0.4 mg 24 3-30 9102 capsule by [facility] of hr capsule 00:00: mouth [place] 00 daily. Medical Branch ergocalcife 2021-0 Yes [id number] Take 1 [facility] rol, 3-30 capsule by [facility] of vitamin d2, 00:00: mouth [place] 1,250 mcg 00 weekly. Medical (50,000 Branch unit) capsule traZODone 2021-0 Yes [id number] 50mg Take 1 [facility] nivers 50 mg 3-30 tablet by [facility] of tablet 00:00: mouth at [place] 00 bedtime. Medical Branch pravastatin 2021-0 Yes [id number] 40mg Take 1 [facility] 40 mg 3-30 tablet by [facility] of tablet 00:00: mouth at [place] 00 bedtime. Medical Branch tamsulosin 2021-0 Yes [id number] .4mg Take 1 [facility] 0.4 mg 24 3-30 9102 capsule by [facility] of hr capsule 00:00: mouth [place] 00 daily. Medical Branch ergocalcife 2021-0 Yes [id number] Take 1 [facility] rol, 3-30 capsule by [facility] of vitamin d2, 00:00: mouth [place] 1,250 mcg 00 weekly. Medical (50,000 Branch unit) capsule traZODone 2021-0 Yes [id number] 50mg Take 1 [facility] nivers 50 mg 3-30 tablet by [facility] of tablet 00:00: mouth at [place] 00 bedtime. Medical Branch pravastatin 2021-0 Yes [id number] 40mg Take 1 [facility] 40 mg 3-30 tablet by [facility] of tablet 00:00: mouth at [place] 00 bedtime. Medical Branch tamsulosin 2021-0 Yes [id number] .4mg Take 1 [facility] 0.4 mg 24 3-30 9102 capsule by [facility] of hr capsule 00:00: mouth [place] 00 daily. Medical Branch ergocalcife 2021-0 Yes [id number] Take 1 [facility] rol, 3-30 capsule by [facility] of vitamin d2, 00:00: mouth [place] 1,250 mcg 00 weekly. Medical (50,000 Branch unit) capsule traZODone 2021-0 Yes [id number] 50mg Take 1 [facility] nivers 50 mg 3-30 tablet by [facility] of tablet 00:00: mouth at [place] 00 bedtime. Medical Branch pravastatin 2021-0 Yes [id number] 40mg Take 1 [facility] 40 mg 3-30 tablet by [facility] of tablet 00:00: mouth at [place] 00 bedtime. Medical Branch tamsulosin 2021-0 Yes [id number] .4mg Take 1 [facility] 0.4 mg 24 3-30 9102 capsule by [facility] of hr capsule 00:00: mouth [place] 00 daily. Medical Branch ergocalcife 2021-0 Yes [id number] Take 1 [facility] rol, 3-30 capsule by [facility] of vitamin d2, 00:00: mouth [place] 1,250 mcg 00 weekly. Medical (50,000 Branch unit) capsule traZODone 2021-0 Yes [id number] 50mg Take 1 [facility] nivers 50 mg 3-30 tablet by [facility] of tablet 00:00: mouth at [place] 00 bedtime. Medical Branch pravastatin 2021-0 Yes [id number] 40mg Take 1 [facility] 40 mg 3-30 tablet by [facility] of tablet 00:00: mouth at [place] 00 bedtime. Medical Branch tamsulosin 2021-0 Yes [id number] .4mg Take 1 [facility] 0.4 mg 24 3-30 9102 capsule by [facility] of hr capsule 00:00: mouth [place] 00 daily. Medical Branch ergocalcife 2021-0 Yes [id number] Take 1 [facility] rol, 3-30 capsule by [facility] of vitamin d2, 00:00: mouth [place] 1,250 mcg 00 weekly. Medical (50,000 Branch unit) capsule traZODone 2021-0 Yes [id number] 50mg Take 1 [facility] nivers 50 mg 3-30 tablet by [facility] of tablet 00:00: mouth at [place] 00 bedtime. Medical Branch pravastatin 2021-0 Yes [id number] 40mg Take 1 [facility] 40 mg 3-30 tablet by [facility] of tablet 00:00: mouth at [place] 00 bedtime. Medical Branch tamsulosin 2021-0 Yes [id number] .4mg Take 1 [facility] 0.4 mg 24 3-30 9102 capsule by [facility] of hr capsule 00:00: mouth [place] 00 daily. Medical Branch ergocalcife 2021-0 Yes [id number] Take 1 [facility] rol, 3-30 capsule by [facility] of vitamin d2, 00:00: mouth [place] 1,250 mcg 00 weekly. Medical (50,000 Branch unit) capsule traZODone 2021-0 Yes [id number] 50mg Take 1 [facility] nivers 50 mg 3-30 tablet by [facility] of tablet 00:00: mouth at [place] 00 bedtime. Medical Branch pravastatin 0 Yes [id number] 40mg Take 1 [facility] 40 mg 3-30 tablet by [facility] of tablet 00:00: mouth at [place] 00 bedtime. Medical Branch tamsulosin 0 Yes [id number] .4mg Take 1 [facility] 0.4 mg 24 3-30 9102 capsule by [facility] of hr capsule 00:00: mouth [place] 00 daily. Medical Branch ergocalcife 0 Yes [id number] Take 1 [facility] rol, 3-30 capsule by [facility] of vitamin d2, 00:00: mouth [place] 1,250 mcg 00 weekly. Medical (50,000 Branch unit) capsule traZODone 0 Yes [id number] 50mg Take 1 [facility] nivers 50 mg 3-30 tablet by [facility] of tablet 00:00: mouth at [place] 00 bedtime. Medical Branch pravastatin 0 Yes [id number] 40mg Take 1 [facility] 40 mg 3-30 tablet by [facility] of tablet 00:00: mouth at [place] 00 bedtime. Medical Branch tamsulosin 2021-0 Yes [id number] .4mg Take 1 [facility] 0.4 mg 24 3-30 9102 capsule by [facility] of hr capsule 00:00: mouth [place] 00 daily. Medical Branch ergocalcife 0 Yes [id number] Take 1 [facility] rol, 3-30 capsule by [facility] of vitamin d2, 00:00: mouth [place] 1,250 mcg 00 weekly. Medical (50,000 Branch unit) capsule traZODone 2021-0 Yes [id number] 50mg Take 1 [facility] nivers 50 mg 3-30 tablet by [facility] of tablet 00:00: mouth at [place] 00 bedtime. Medical Branch pravastatin 2021-0 Yes [id number] 40mg Take 1 [facility] 40 mg 3-30 tablet by [facility] of tablet 00:00: mouth at [place] 00 bedtime. Medical Branch tamsulosin 2021-0 Yes [id number] .4mg Take 1 [facility] 0.4 mg 24 3-30 9102 capsule by [facility] of hr capsule 00:00: mouth [place] 00 daily. Medical Branch ergocalcife 2021-0 Yes [id number] Take 1 [facility] rol, 3-30 capsule by [facility]y of vitamin d2, 00:00: mouth [place] 1,250 mcg 00 weekly. Medical (50,000 Branch unit) capsule traZODone 2021-0 Yes [id number] 50mg Take 1 [facility] nivers 50 mg 3-30 tablet by [facility] of tablet 00:00: mouth at [place] 00 bedtime. Medical Branch pravastatin 2021-0 Yes [id number] 40mg Take 1 [facility] 40 mg 3-30 tablet by [facility] of tablet 00:00: mouth at [place] 00 bedtime. Medical Branch tamsulosin 0 Yes [id number] .4mg Take 1 [facility] 0.4 mg 24 3-30 9102 capsule by [facility] of hr capsule 00:00: mouth [place] 00 daily. Medical Branch ergocalcife 2021-0 Yes [id number] Take 1 [facility] rol, 3-30 capsule by ity of vitamin d2, 00:00: mouth [place] 1,250 mcg 00 weekly. Medical (50,000 Branch unit) capsule traZODone 2021-0 Yes [id number] 50mg Take 1 [facility] nivers 50 mg 3-30 tablet by [facility] of tablet 00:00: mouth at [place] 00 bedtime. Medical Branch pravastatin 2021-0 Yes [id number] 40mg Take 1 [facility] 40 mg 3-30 tablet by [facility] of tablet 00:00: mouth at [place] 00 bedtime. Medical Branch tamsulosin 2021-0 Yes [id number] .4mg Take 1 [facility] 0.4 mg 24 3-30 9102 capsule by [facility] of hr capsule 00:00: mouth [place] 00 daily. Medical Branch ergocalcife 2021-0 Yes [id number] Take 1 [facility] rol, 3-30 capsule by [facility]y of vitamin d2, 00:00: mouth [place] 1,250 mcg 00 weekly. Medical (50,000 Branch unit) capsule traZODone 2021-0 Yes [id number] 50mg Take 1 [facility] nivers 50 mg 3-30 tablet by [facility] of tablet 00:00: mouth at [place] 00 bedtime. Medical Branch pravastatin 2021-0 Yes [id number] 40mg Take 1 [facility] 40 mg 3-30 tablet by [facility] of tablet 00:00: mouth at [place] 00 bedtime. Medical Branch tamsulosin 2021-0 Yes [id number] .4mg Take 1 [facility] 0.4 mg 24 3-30 9102 capsule by [facility] of hr capsule 00:00: mouth [place] 00 daily. Medical Branch ergocalcife 2021-0 Yes [id number] Take 1 [facility] rol, 3-30 capsule by [facility]y of vitamin d2, 00:00: mouth [place] 1,250 mcg 00 weekly. Medical (50,000 Branch unit) capsule traZODone 2021-0 Yes [id number] 50mg Take 1 [facility] nivers 50 mg 3-30 tablet by [facility]y of tablet 00:00: mouth at [place] 00 bedtime. Medical Branch pravastatin 2021-0 Yes [id number] 40mg Take 1 [facility] 40 mg 3-30 tablet by [facility] of tablet 00:00: mouth at [place] 00 bedtime. Medical Branch tamsulosin 0 Yes [id number] .4mg Take 1 [facility] 0.4 mg 24 3-30 9102 capsule by [facility] of hr capsule 00:00: mouth [place] 00 daily. Medical Branch ergocalcife 2021-0 Yes [id number] Take 1 [facility] rol, 3-30 capsule by ity of vitamin d2, 00:00: mouth [place] 1,250 mcg 00 weekly. Medical (50,000 Branch unit) capsule traZODone 2021-0 Yes [id number] 50mg Take 1 [facility] nivers 50 mg 3-30 tablet by [facility] of tablet 00:00: mouth at [place] 00 bedtime. Medical Branch pravastatin 2021-0 Yes [id number] 40mg Take 1 [facility] 40 mg 3-30 tablet by [facility] of tablet 00:00: mouth at [place] 00 bedtime. Medical Branch tamsulosin 2021-0 Yes [id number] .4mg Take 1 [facility] 0.4 mg 24 3-30 9102 capsule by [facility] of hr capsule 00:00: mouth [place] 00 daily. Medical Branch ergocalcife 2021-0 Yes [id number] Take 1 [facility] rol, 3-30 capsule by ity of vitamin d2, 00:00: mouth [place] 1,250 mcg 00 weekly. Medical (50,000 Branch unit) capsule traZODone 2021-0 Yes [id number] 50mg Take 1 [facility] nivers 50 mg 3-30 tablet by [facility] of tablet 00:00: mouth at [place] 00 bedtime. Medical Branch pravastatin 2021-0 Yes [id number] 40mg Take 1 [facility] 40 mg 3-30 tablet by [facility] of tablet 00:00: mouth at [place] 00 bedtime. Medical Branch tamsulosin 0 Yes [id number] .4mg Take 1 [facility] 0.4 mg 24 3-30 9102 capsule by ity of hr capsule 00:00: mouth [place] 00 daily. Medical Branch ergocalcife 0 Yes [id number] Take 1 [facility] rol, 3-30 capsule by ity of vitamin d2, 00:00: mouth [place] 1,250 mcg 00 weekly. Medical (50,000 Branch unit) capsule traZODone 2021-0 Yes [id number] 50mg Take 1 [facility] nivers 50 mg 3-30 tablet by [facility] of tablet 00:00: mouth at [place] 00 bedtime. Medical Branch pravastatin 0 Yes [id number] 40mg Take 1 [facility] 40 mg 3-30 tablet by ity of tablet 00:00: mouth at [place] 00 bedtime. Medical Branch tamsulosin 0 Yes [id number] .4mg Take 1 [facility] 0.4 mg 24 3-30 9102 capsule by [facility]y of hr capsule 00:00: mouth [place] 00 daily. Medical Branch ergocalcife 2021-0 Yes [id number] Take 1 [facility] rol, 3-30 capsule by ity of vitamin d2, 00:00: mouth [place] 1,250 mcg 00 weekly. Medical (50,000 Branch unit) capsule traZODone 2021-0 Yes [id number] 50mg Take 1 [facility] nivers 50 mg 3-30 tablet by ity of tablet 00:00: mouth at [place] 00 bedtime. Medical Branch pravastatin 2021-0 Yes [id number] 40mg Take 1 [facility] 40 mg 3-30 tablet by ity of tablet 00:00: mouth at [place] 00 bedtime. Medical Branch tamsulosin 2021-0 Yes [id number] .4mg Take 1 [facility] 0.4 mg 24 3-30 9102 capsule by ity of hr capsule 00:00: mouth [place] 00 daily. Medical Branch ergocalcife 2021-0 Yes [id number] Take 1 [facility] rol, 3-30 capsule by ity of vitamin d2, 00:00: mouth [place] 1,250 mcg 00 weekly. Medical (50,000 Branch unit) capsule traZODone 2021-0 Yes [id number] 50mg Take 1 [facility] nivers 50 mg 3-30 tablet by [facility]y of tablet 00:00: mouth at [place] 00 bedtime. Medical Branch pravastatin 2021-0 Yes [id number] 40mg Take 1 [facility] 40 mg 3-30 tablet by ity of tablet 00:00: mouth at [place] 00 bedtime. Medical Branch tamsulosin 2021-0 Yes [id number] .4mg Take 1 [facility] 0.4 mg 24 3-30 9102 capsule by [facility]y of hr capsule 00:00: mouth [place] 00 daily. Medical Branch ergocalcife 2021-0 Yes [id number] Take 1 [facility] rol, 3-30 capsule by ity of vitamin d2, 00:00: mouth [place] 1,250 mcg 00 weekly. Medical (50,000 Branch unit) capsule traZODone 2021-0 Yes [id number] 50mg Take 1 [facility] nivers 50 mg 3-30 tablet by ity of tablet 00:00: mouth at [place] 00 bedtime. Medical Branch pravastatin 2021-0 Yes [id number] 40mg Take 1 [facility] 40 mg 3-30 tablet by ity of tablet 00:00: mouth at [place] 00 bedtime. Medical Branch tamsulosin 2021-0 Yes [id number] .4mg Take 1 [facility] 0.4 mg 24 3-30 9102 capsule by ity of hr capsule 00:00: mouth [place] 00 daily. Medical Branch ergocalcife 2021-0 Yes [id number] Take 1 [facility] rol, 3-30 capsule by ity of vitamin d2, 00:00: mouth [place] 1,250 mcg 00 weekly. Medical (50,000 Branch unit) capsule traZODone 2021-0 Yes [id number] 50mg Take 1 [facility] nivers 50 mg 3-30 tablet by ity of tablet 00:00: mouth at [place] 00 bedtime. Medical Branch pravastatin 2021-0 Yes [id number] 40mg Take 1 [facility] 40 mg 3-30 tablet by ity of tablet 00:00: mouth at [place] 00 bedtime. Medical Branch tamsulosin 0 Yes [id number] .4mg Take 1 [facility] 0.4 mg 24 3-30 9102 capsule by ity of hr capsule 00:00: mouth [place] 00 daily. Medical Branch ergocalcife 2021-0 Yes [id number] Take 1 [facility] rol, 3-30 capsule by ity of vitamin d2, 00:00: mouth [place] 1,250 mcg 00 weekly. Medical (50,000 Branch unit) capsule traZODone 0 Yes [id number] 50mg Take 1 [facility] nivers 50 mg 3-30 tablet by ity of tablet 00:00: mouth at [place] 00 bedtime. Medical Branch pravastatin Yes [id number] 40mg Take 1 [facility] 40 mg 3-30 tablet by ity of tablet 00:00: mouth at [place] 00 bedtime. Medical Branch tamsulosin 0 Yes [id number] .4mg Take 1 [facility] 0.4 mg 24 3-30 9102 capsule by ity of hr capsule 00:00: mouth [place] 00 daily. Medical Branch ergocalcife 0 Yes [id number] Take 1 [facility] rol, 3-30 capsule by ity of vitamin d2, 00:00: mouth [place] 1,250 mcg 00 weekly. Medical (50,000 Branch unit) capsule traZODone 0 Yes [id number] 50mg Take 1 [facility] nivers 50 mg 3-30 tablet by ity of tablet 00:00: mouth at [place] 00 bedtime. Medical Branch pravastatin 0 Yes [id number] 40mg Take 1 [facility] 40 mg 3-30 tablet by ity of tablet 00:00: mouth at [place] 00 bedtime. Medical Branch tamsulosin 0 Yes [id number] .4mg Take 1 [facility] 0.4 mg 24 3-30 9102 capsule by ity of hr capsule 00:00: mouth [place] 00 daily. Medical Branch ergocalcife 0 Yes [id number] Take 1 [facility] rol, 3-30 capsule by ity of vitamin d2, 00:00: mouth [place] 1,250 mcg 00 weekly. Medical (50,000 Branch unit) capsule traZODone 0 Yes [id number] 50mg Take 1 [facility] nivers 50 mg 3-30 tablet by ity of tablet 00:00: mouth at [place] 00 bedtime. Medical Branch pravastatin 2021-0 Yes [id number] 40mg Take 1 [facility] 40 mg 3-30 tablet by ity of tablet 00:00: mouth at [place] 00 bedtime. Medical Branch tamsulosin 2021-0 Yes [id number] .4mg Take 1 [facility] 0.4 mg 24 3-30 9102 capsule by ity of hr capsule 00:00: mouth [place] 00 daily. Medical Branch ergocalcife 2021-0 Yes [id number] Take 1 [facility] rol, 3-30 capsule by ity of vitamin d2, 00:00: mouth [place] 1,250 mcg 00 weekly. Medical (50,000 Branch unit) capsule traZODone 2021-0 Yes [id number] 50mg Take 1 [facility] nivers 50 mg 3-30 tablet by ity of tablet 00:00: mouth at [place] 00 bedtime. Medical Branch pravastatin 2021-0 Yes [id number] 40mg Take 1 [facility] 40 mg 3-30 tablet by ity of tablet 00:00: mouth at [place] 00 bedtime. Medical Branch tamsulosin 0 Yes [id number] .4mg Take 1 [facility] 0.4 mg 24 3-30 9102 capsule by ity of hr capsule 00:00: mouth [place] 00 daily. Medical Branch ergocalcife 2021-0 Yes [id number] Take 1 [facility] rol, 3-30 capsule by ity of vitamin d2, 00:00: mouth [place] 1,250 mcg 00 weekly. Medical (50,000 Branch unit) capsule traZODone 2021-0 Yes [id number] 50mg Take 1 [facility] 50 mg 3-30 tablet by [facility] tablet 00:00: mouth at [place] 00 bedtime. [facility] pravastatin 2021-0 Yes [id number] 40mg Take 1 [facility] 40 mg 3-30 tablet by [facility] tablet 00:00: mouth at [place] 00 bedtime. [facility] tamsulosin 2021-0 Yes [id number] .4mg Take 1 [facility] 0.4 mg 24 3-30 9102 capsule by [facility] of hr capsule 00:00: mouth [place] 00 daily. [facility] ergocalcife 2021-0 Yes [id number] Take 1 [facility] rol, 3-30 capsule by [facility] of vitamin d2, 00:00: mouth [place] 1,250 mcg 00 weekly. [facility] (50,000 Branch unit) capsule traZODone 0 Yes [id number] 50mg Take 1 [facility] 50 mg 3-30 tablet by [facility] tablet 00:00: mouth at [place] 00 bedtime. [facility] pravastatin 0 Yes [id number] 40mg Take 1 [facility] 40 mg 3-30 tablet by [facility] of tablet 00:00: mouth at [place] 00 bedtime. [facility] tamsulosin Yes [id number] .4mg Take 1 [facility] 0.4 mg 24 3-30 9102 capsule by [facility] of hr capsule 00:00: mouth [place] 00 daily. [facility] ergocalcife Yes [id number] Take 1 [facility] rol, 3-30 capsule by [facility] of vitamin d2, 00:00: mouth [place] 1,250 mcg 00 weekly. [facility] (50,000 Branch unit) capsule traZODone 0 Yes [id number] 50mg Take 1 [facility] 50 mg 3-30 tablet by [facility] of tablet 00:00: mouth at [place] 00 bedtime. [facility] pravastatin 0 Yes [id number] 40mg Take 1 [facility] 40 mg 3-30 tablet by [facility] of tablet 00:00: mouth at [place] 00 bedtime. [facility] tamsulosin Yes [id number] .4mg Take 1 [facility] 0.4 mg 24 3-30 9102 capsule by [facility]y of hr capsule 00:00: mouth [place] 00 daily. [facility] ergocalcife 0 Yes [id number] Take 1 [facility] rol, 3-30 capsule by [facility] of vitamin d2, 00:00: mouth [place] 1,250 mcg 00 weekly. [facility] (50,000 Branch unit) capsule traZODone 2021-0 Yes [id number] 50mg Take 1 [facility] 50 mg 3-30 tablet by [facility] of tablet 00:00: mouth at [place] 00 bedtime. [facility] pravastatin 0 Yes [id number] 40mg Take 1 [facility] 40 mg 3-30 tablet by [facility] of tablet 00:00: mouth at [place] 00 bedtime. [facility] tamsulosin 0 Yes [id number] .4mg Take 1 [facility] 0.4 mg 24 3-30 9102 capsule by [facility] of hr capsule 00:00: mouth [place] 00 daily. [facility] ergocalcife 2021-0 Yes [id number] Take 1 [facility] rol, 3-30 capsule by [facility] of vitamin d2, 00:00: mouth [place] 1,250 mcg 00 weekly. [facility] (50,000 Branch unit) capsule traZODone 2021-0 Yes [id number] 50mg Take 1 [facility] 50 mg 3-30 tablet by [facility] of tablet 00:00: mouth at [place] 00 bedtime. [facility] pravastatin 0 Yes [id number] 40mg Take 1 [facility] 40 mg 3-30 tablet by [facility] of tablet 00:00: mouth at [place] 00 bedtime. [facility] tamsulosin 0 Yes [id number] .4mg Take 1 [facility] 0.4 mg 24 3-30 9102 capsule by [facility] of hr capsule 00:00: mouth [place] 00 daily. [facility] ergocalcife 0 Yes [id number] Take 1 [facility] rol, 3-30 capsule by [facility] of vitamin d2, 00:00: mouth [place] 1,250 mcg 00 weekly. [facility] (50,000 Branch unit) capsule traZODone 2021-0 Yes [id number] 50mg Take 1 [facility] 50 mg 3-30 tablet by [facility] of tablet 00:00: mouth at [place] 00 bedtime. [facility] pravastatin 0 Yes [id number] 40mg Take 1 [facility] 40 mg 3-30 tablet by [facility] of tablet 00:00: mouth at [place] 00 bedtime. [facility] tamsulosin 0 Yes [id number] .4mg Take 1 [facility] 0.4 mg 24 3-30 9102 capsule by [facility] of hr capsule 00:00: mouth [place] 00 daily. [facility] ergocalcife 0 Yes [id number] Take 1 [facility] rol, 3-30 capsule by [facility]y of vitamin d2, 00:00: mouth [place] 1,250 mcg 00 weekly. Medical (50,000 Branch unit) capsule traZODone 2021-0 Yes [id number] 50mg Take 1 [facility] 50 mg 3-30 tablet by [facility] of tablet 00:00: mouth at [place] 00 bedtime. [facility] pravastatin 2021-0 Yes [id number] 40mg Take 1 [facility] 40 mg 3-30 tablet by [facility] of tablet 00:00: mouth at [place] 00 bedtime. [facility] tamsulosin 2021-0 Yes [id number] .4mg Take 1 [facility] 0.4 mg 24 3-30 9102 capsule by [facility] of hr capsule 00:00: mouth [place] 00 daily. [facility] ergocalcife 2021-0 Yes [id number] Take 1 [facility] rol, 3-30 capsule by [facility] of vitamin d2, 00:00: mouth [place] 1,250 mcg 00 weekly. [facility] (50,000 Branch unit) capsule traZODone 2021-0 Yes [id number] 50mg Take 1 [facility] 50 mg 3-30 tablet by [facility] of tablet 00:00: mouth at [place] 00 bedtime. [facility] pravastatin 2021-0 Yes [id number] 40mg Take 1 [facility] 40 mg 3-30 tablet by [facility] of tablet 00:00: mouth at [place] 00 bedtime. [facility] tamsulosin 2021-0 Yes [id number] .4mg Take 1 [facility] 0.4 mg 24 3-30 9102 capsule by [facility] of hr capsule 00:00: mouth [place] 00 daily. [facility] ergocalcife 2021-0 Yes [id number] Take 1 [facility] rol, 3-30 capsule by [facility]y of vitamin d2, 00:00: mouth [place] 1,250 mcg 00 weekly. [facility] (50,000 Branch unit) capsule traZODone 2021-0 Yes [id number] 50mg Take 1 [facility] 50 mg 3-30 tablet by [facility] of tablet 00:00: mouth at [place] 00 bedtime. [facility] tamsulosin 2021-0 Yes [id number] .4mg Take 1 [facility] 0.4 mg 24 3-30 9102 capsule by [facility]y of hr capsule 00:00: mouth [place] 00 daily. [facility] ergocalcife 2021-0 Yes [id number] Take 1 [facility] rol, 3-30 capsule by ity of vitamin d2, 00:00: mouth [place] 1,250 mcg 00 weekly. Medical (50,000 Branch unit) capsule traZODone 2021-0 Yes [id number] 50mg Take 1 [facility] 50 mg 3-30 tablet by [facility] of tablet 00:00: mouth at [place] 00 bedtime. [facility] tamsulosin 2021-0 Yes [id number] .4mg Take 1 [facility] 0.4 mg 24 3-30 9102 capsule by [facility]y of hr capsule 00:00: mouth [place] 00 daily. [facility] ergocalcife 2021-0 Yes [id number] Take 1 [facility] rol, 3-30 capsule by [facility] of vitamin d2, 00:00: mouth [place] 1,250 mcg 00 weekly. Medical (50,000 Branch unit) capsule traZODone 2021-0 Yes [id number] 50mg Take 1 [facility] 50 mg 3-30 tablet by [facility] of tablet 00:00: mouth at [place] 00 bedtime. [facility] tamsulosin 0 Yes [id number] .4mg Take 1 [facility] 0.4 mg 24 3-30 9102 capsule by [facility]y of hr capsule 00:00: mouth [place] 00 daily. [facility] ergocalcife 2021-0 Yes [id number] Take 1 [facility] rol, 3-30 capsule by ity of vitamin d2, 00:00: mouth [place] 1,250 mcg 00 weekly. Medical (50,000 Branch unit) capsule traZODone 2021-0 Yes [id number] 50mg Take 1 [facility] 50 mg 3-30 tablet by [facility] of tablet 00:00: mouth at [place] 00 bedtime. [facility] tamsulosin 0 Yes [id number] .4mg Take 1 [facility] 0.4 mg 24 3-30 9102 capsule by [facility]y of hr capsule 00:00: mouth [place] 00 daily. [facility] ergocalcife 2021-0 Yes [id number] Take 1 [facility] rol, 3-30 capsule by ity of vitamin d2, 00:00: mouth [place] 1,250 mcg 00 weekly. Medical (50,000 Branch unit) capsule traZODone 2021-0 Yes [id number] 50mg Take 1 [facility] 50 mg 3-30 tablet by [facility] of tablet 00:00: mouth at [place] 00 bedtime. [facility] tamsulosin 2021-0 Yes [id number] .4mg Take 1 [facility] 0.4 mg 24 3-30 9102 capsule by [facility]y of hr capsule 00:00: mouth [place] 00 daily. [facility] ergocalcife 2021-0 Yes [id number] Take 1 [facility] rol, 3-30 capsule by ity of vitamin d2, 00:00: mouth [place] 1,250 mcg 00 weekly. Medical (50,000 Branch unit) capsule traZODone 2021-0 Yes [id number] 50mg Take 1 [facility] 50 mg 3-30 tablet by [facility] of tablet 00:00: mouth at [place] 00 bedtime. [facility] tamsulosin 2021-0 Yes [id number] .4mg Take 1 [facility] 0.4 mg 24 3-30 9102 capsule by [facility]y of hr capsule 00:00: mouth [place] 00 daily. [facility] ergocalcife 2021-0 Yes [id number] Take 1 [facility] rol, 3-30 capsule by ity of vitamin d2, 00:00: mouth [place] 1,250 mcg 00 weekly. Medical (50,000 Branch unit) capsule traZODone 2021-0 Yes [id number] 50mg Take 1 [facility] 50 mg 3-30 tablet by [facility] of tablet 00:00: mouth at [place] 00 bedtime. [facility] tamsulosin 2021-0 Yes [id number] .4mg Take 1 [facility] 0.4 mg 24 3-30 9102 capsule by ity of hr capsule 00:00: mouth [place] 00 daily. [facility] ergocalcife 2021-0 Yes [id number] Take 1 [facility] rol, 3-30 capsule by [facility]y of vitamin d2, 00:00: mouth [place] 1,250 mcg 00 weekly. Medical (50,000 Branch unit) capsule traZODone 2021-0 Yes [id number] 50mg Take 1 [facility] 50 mg 3-30 tablet by [facility] of tablet 00:00: mouth at [place] 00 bedtime. [facility] tamsulosin 2021-0 Yes [id number] .4mg Take 1 [facility] 0.4 mg 24 3-30 9102 capsule by ity of hr capsule 00:00: mouth [place] 00 daily. [facility] ergocalcife 2021-0 Yes [id number] Take 1 [facility] rol, 3-30 capsule by ity of vitamin d2, 00:00: mouth [place] 1,250 mcg 00 weekly. Medical (50,000 Branch unit) capsule traZODone 2021-0 Yes [id number] 50mg Take 1 [facility] 50 mg 3-30 tablet by [facility] of tablet 00:00: mouth at [place] 00 bedtime. [facility] tamsulosin 2021-0 Yes [id number] .4mg Take 1 [facility] 0.4 mg 24 3-30 9102 capsule by ity of hr capsule 00:00: mouth [place] 00 daily. [facility] ergocalcife 2021-0 Yes [id number] Take 1 [facility] rol, 3-30 capsule by ity of vitamin d2, 00:00: mouth [place] 1,250 mcg 00 weekly. Medical (50,000 Branch unit) capsule traZODone 2021-0 Yes [id number] 50mg Take 1 [facility] 50 mg 3-30 tablet by [facility] of tablet 00:00: mouth at [place] 00 bedtime. [facility] tamsulosin 2021-0 Yes [id number] .4mg Take 1 [facility] 0.4 mg 24 3-30 9102 capsule by ity of hr capsule 00:00: mouth [place] 00 daily. [facility] ergocalcife 2021-0 Yes [id number] Take 1 [facility] rol, 3-30 capsule by ity of vitamin d2, 00:00: mouth [place] 1,250 mcg 00 weekly. Medical (50,000 Branch unit) capsule traZODone 2021-0 Yes [id number] 50mg Take 1 [facility] 50 mg 3-30 tablet by [facility] of tablet 00:00: mouth at [place] 00 bedtime. [facility] tamsulosin 2021-0 Yes [id number] .4mg Take 1 [facility] 0.4 mg 24 3-30 9102 capsule by ity of hr capsule 00:00: mouth [place] 00 daily. [facility] traZODone 2021-0 Yes [id number] 50mg Take 1 [facility] 50 mg 3-30 tablet by [facility] of tablet 00:00: mouth at [place] 00 bedtime. [facility] tamsulosin 2021-0 Yes [id number] .4mg Take 1 [facility] 0.4 mg 24 3-30 9102 capsule by ity of hr capsule 00:00: mouth [place] 00 daily. [facility] traZODone 2021-0 Yes [id number] 50mg Take 1 [facility] 50 mg 3-30 tablet by [facility] of tablet 00:00: mouth at [place] 00 bedtime. [facility] tamsulosin 2021-0 Yes [id number] .4mg Take 1 [facility] 0.4 mg 24 3-30 9102 capsule by ity of hr capsule 00:00: mouth [place] 00 daily. [facility] traZODone 0 Yes [id number] 50mg Take 1 [facility] 50 mg 3-30 tablet by [facility] of tablet 00:00: mouth at [place] 00 bedtime. [facility] tamsulosin 0 Yes [id number] .4mg Take 1 [facility] 0.4 mg 24 3-30 9102 capsule by ity of hr capsule 00:00: mouth [place] 00 daily. [facility] traZODone 0 Yes [id number] 50mg Take 1 [facility] 50 mg 3-30 tablet by [facility]y of tablet 00:00: mouth at [place] 00 bedtime. [facility] tamsulosin 0 Yes [id number] .4mg Take 1 [facility] 0.4 mg 24 3-30 9102 capsule by ity of hr capsule 00:00: mouth [place] 00 daily. [facility] traZODone 0 Yes [id number] 50mg Take 1 [facility] 50 mg 3-30 tablet by ity of tablet 00:00: mouth at [place] 00 bedtime. [facility] tamsulosin 2022- No [id number] .4mg Take 1 [facility] 0.4 mg 24 3-30 -05 9102 capsule by ity of hr capsule 00:00: 00:00 mouth [place] 00 :00 daily. [facility] traZODone 2022- No [id number] 50mg Take 1 [facility] 50 mg 3-30 -05 tablet by [facility]y of tablet 00:00: 00:00 mouth at [place] 00 :00 bedtime. [facility] tamsulosin 2022- No [id number] .4mg Take 1 [facility] 0.4 mg 24 3-30 -05 9102 capsule by ity of hr capsule 00:00: 00:00 mouth [place] 00 :00 daily. [facility] traZODone 2022- No [id number] 50mg Take 1 [facility] 50 mg 3-30 -05 tablet by ity of tablet 00:00: 00:00 mouth at [place] 00 :00 bedtime. [facility] tamsulosin 2022- No [id number] .4mg Take 1 [facility] 0.4 mg 24 3-30 -05 9102 capsule by ity of hr capsule 00:00: 00:00 mouth [place] 00 :00 daily. [facility] traZODone 2022- No [id number] 50mg Take 1 [facility] 50 mg 3-30 -05 tablet by ity of tablet 00:00: 00:00 mouth at [place] 00 :00 bedtime. [facility] tamsulosin 2022- No [id number] .4mg Take 1 [facility] 0.4 mg 24 3-30 -05 9102 capsule by ity of hr capsule 00:00: 00:00 mouth [place] 00 :00 daily. [facility] traZODone 2022- No [id number] 50mg Take 1 [facility] 50 mg 3-30 -05 tablet by ity of tablet 00:00: 00:00 mouth at [place] 00 :00 bedtime. [facility] ergocalcife 2021- No [id number] Take 1 [facility] rol, 3-30 12-12 capsule by ity of vitamin d2, 00:00: 00:00 mouth [place] 1,250 mcg 00 :00 weekly. [facility] (50,000 Branch unit) capsule pravastatin 2021- No [id number] 40mg Take 1 [facility] 40 mg 3-30 11-11 tablet by ity of tablet 00:00: 00:00 mouth at [place] 00 :00 bedtime. [facility] triamcinolo Yes [id number] 1{spray Use 1 [facility] ne 55 mcg 3-15 } [place] in ity of nasal 00:00: each [place] inhaler 00 nostril 2 Medical (two) Branch times daily. ipratropium Yes [id number] 1{spray Use 1 [facility] 42 mcg 3-15 1 } [place] in ity of (0.06 %) 00:00: each [place] nasal spray 00 nostril 2 Med ical (two) Branch times daily. triamcinolo Yes [id number] 1{spray Use 1 [facility] ne 55 mcg 3-15 } [place] in ity of nasal 00:00: each [place] inhaler 00 nostril 2 Medical (two) Branch times daily. ipratropium Yes [id number] 1{spray Use 1 [facility] 42 mcg 3-15 1 } [place] in ity of (0.06 %) 00:00: each [place] nasal spray 00 nostril 2 Med ical (two) Branch times daily. triamcinolo 2021-0 Yes [id number] 1{spray Use 1 [facility] ne 55 mcg 3-15 } [place] in ity of nasal 00:00: each [place] inhaler 00 nostril 2 Medical (two) Branch times daily. ipratropium 2021-0 Yes [id number] 1{spray Use 1 [facility] 42 mcg 3-15 1 } [place] in ity of (0.06 %) 00:00: each [place] nasal spray 00 nostril 2 Med ical (two) Branch times daily. triamcinolo 2021-0 Yes [id number] 1{spray Use 1 [facility] ne 55 mcg 3-15 } [place] in ity of nasal 00:00: each [place] inhaler 00 nostril 2 Medical (two) Branch times daily. ipratropium 2021-0 Yes [id number] 1{spray Use 1 [facility] 42 mcg 3-15 1 } [place] in ity of (0.06 %) 00:00: each [place] nasal spray 00 nostril 2 Med ical (two) Branch times daily. triamcinolo 2021-0 Yes [id number] 1{spray Use 1 [facility] ne 55 mcg 3-15 } [place] in ity of nasal 00:00: each [place] inhaler 00 nostril 2 Medical (two) Branch times daily. ipratropium 2021-0 Yes [id number] 1{spray Use 1 [facility] 42 mcg 3-15 1 } [place] in ity of (0.06 %) 00:00: each [place] nasal spray 00 nostril 2 Med ical (two) Branch times daily. triamcinolo 2021-0 Yes [id number] 1{spray Use 1 [facility] ne 55 mcg 3-15 } [place] in ity of nasal 00:00: each [place] inhaler 00 nostril 2 Medical (two) Branch times daily. ipratropium 2-0 Yes [id number] 1{spray Use 1 [facility] 42 mcg 3-15 1 } [place] in ity of (0.06 %) 00:00: each [place] nasal spray 00 nostril 2 Med ical (two) Branch times daily. triamcinolo 2021-0 Yes [id number] 1{spray Use 1 [facility] ne 55 mcg 3-15 } [place] in ity of nasal 00:00: each [place] inhaler 00 nostril 2 Medical (two) Branch times daily. ipratropium 2021-0 Yes [id number] 1{spray Use 1 [facility] 42 mcg 3-15 1 } [place] in ity of (0.06 %) 00:00: each [place] nasal spray 00 nostril 2 Med ical (two) Branch times daily. triamcinolo 2021-0 Yes [id number] 1{spray Use 1 [facility] ne 55 mcg 3-15 } [place] in ity of nasal 00:00: each [place] inhaler 00 nostril 2 Medical (two) Branch times daily. ipratropium 2021-0 Yes [id number] 1{spray Use 1 [facility] 42 mcg 3-15 1 } [place] in ity of (0.06 %) 00:00: each [place] nasal spray 00 nostril 2 Med ical (two) Branch times daily. triamcinolo 2021-0 Yes [id number] 1{spray Use 1 [facility] ne 55 mcg 3-15 } [place] in ity of nasal 00:00: each [place] inhaler 00 nostril 2 Medical (two) Branch times daily. ipratropium 2021-0 Yes [id number] 1{spray Use 1 [facility] 42 mcg 3-15 1 } [place] in ity of (0.06 %) 00:00: each [place] nasal spray 00 nostril 2 Med ical (two) Branch times daily. triamcinolo 2021-0 Yes [id number] 1{spray Use 1 [facility] ne 55 mcg 3-15 } [place] in ity of nasal 00:00: each [place] inhaler 00 nostril 2 Medical (two) Branch times daily. ipratropium 2-0 Yes [id number] 1{spray Use 1 [facility] 42 mcg 3-15 1 } [place] in ity of (0.06 %) 00:00: each [place] nasal spray 00 nostril 2 Med ical (two) Branch times daily. triamcinolo 2021-0 Yes [id number] 1{spray Use 1 [facility] ne 55 mcg 3-15 } [place] in ity of nasal 00:00: each [place] inhaler 00 nostril 2 Medical (two) Branch times daily. ipratropium 2-0 Yes [id number] 1{spray Use 1 [facility] 42 mcg 3-15 1 } [place] in ity of (0.06 %) 00:00: each [place] nasal spray 00 nostril 2 Med ical (two) Branch times daily. triamcinolo 2021-0 Yes [id number] 1{spray Use 1 [facility] ne 55 mcg 3-15 } [place] in ity of nasal 00:00: each [place] inhaler 00 nostril 2 Medical (two) Branch times daily. ipratropium 2021-0 Yes [id number] 1{spray Use 1 [facility] 42 mcg 3-15 1 } [place] in ity of (0.06 %) 00:00: each [place] nasal spray 00 nostril 2 Med ical (two) Branch times daily. triamcinolo 2021-0 Yes [id number] 1{spray Use 1 [facility] ne 55 mcg 3-15 } [place] in ity of nasal 00:00: each [place] inhaler 00 nostril 2 Medical (two) Branch times daily. ipratropium 2021-0 Yes [id number] 1{spray Use 1 [facility] 42 mcg 3-15 1 } [place] in ity of (0.06 %) 00:00: each [place] nasal spray 00 nostril 2 Med ical (two) Branch times daily. triamcinolo 2021-0 Yes [id number] 1{spray Use 1 [facility] ne 55 mcg 3-15 } [place] in ity of nasal 00:00: each [place] inhaler 00 nostril 2 Medical (two) Branch times daily. ipratropium 2021-0 Yes [id number] 1{spray Use 1 [facility] 42 mcg 3-15 1 } [place] in ity of (0.06 %) 00:00: each [place] nasal spray 00 nostril 2 Med ical (two) Branch times daily. triamcinolo 2021-0 Yes [id number] 1{spray Use 1 [facility] ne 55 mcg 3-15 } [place] in ity of nasal 00:00: each [place] inhaler 00 nostril 2 Medical (two) Branch times daily. ipratropium 2021-0 Yes [id number] 1{spray Use 1 [facility] 42 mcg 3-15 1 } [place] in ity of (0.06 %) 00:00: each [place] nasal spray 00 nostril 2 Med ical (two) Branch times daily. triamcinolo 2021-0 Yes [id number] 1{spray Use 1 [facility] ne 55 mcg 3-15 } [place] in ity of nasal 00:00: each [place] inhaler 00 nostril 2 Medical (two) Branch times daily. ipratropium 2021-0 Yes [id number] 1{spray Use 1 [facility] 42 mcg 3-15 1 } [place] in ity of (0.06 %) 00:00: each [place] nasal spray 00 nostril 2 Med ical (two) Branch times daily. triamcinolo 2021-0 Yes [id number] 1{spray Use 1 [facility] ne 55 mcg 3-15 } [place] in ity of nasal 00:00: each [place] inhaler 00 nostril 2 Medical (two) Branch times daily. ipratropium 2021-0 Yes [id number] 1{spray Use 1 [facility] 42 mcg 3-15 1 } [place] in ity of (0.06 %) 00:00: each [place] nasal spray 00 nostril 2 Med ical (two) Branch times daily. triamcinolo 2021-0 Yes [id number] 1{spray Use 1 [facility] ne 55 mcg 3-15 } [place] in ity of nasal 00:00: each [place] inhaler 00 nostril 2 Medical (two) Branch times daily. ipratropium 2021-0 Yes [id number] 1{spray Use 1 [facility] 42 mcg 3-15 1 } [place] in ity of (0.06 %) 00:00: each [place] nasal spray 00 nostril 2 Med ical (two) Branch times daily. triamcinolo 2021-0 Yes [id number] 1{spray Use 1 [facility] ne 55 mcg 3-15 } [place] in ity of nasal 00:00: each [place] inhaler 00 nostril 2 Medical (two) Branch times daily. ipratropium 2021-0 Yes [id number] 1{spray Use 1 [facility] 42 mcg 3-15 1 } [place] in ity of (0.06 %) 00:00: each [place] nasal spray 00 nostril 2 Med ical (two) Branch times daily. triamcinolo 2021-0 Yes [id number] 1{spray Use 1 [facility] ne 55 mcg 3-15 } [place] in ity of nasal 00:00: each [place] inhaler 00 nostril 2 Medical (two) Branch times daily. ipratropium 2021-0 Yes [id number] 1{spray Use 1 [facility] 42 mcg 3-15 1 } [place] in ity of (0.06 %) 00:00: each [place] nasal spray 00 nostril 2 Med ical (two) Branch times daily. triamcinolo 2021-0 Yes [id number] 1{spray Use 1 [facility] ne 55 mcg 3-15 } [place] in ity of nasal 00:00: each [place] inhaler 00 nostril 2 Medical (two) Branch times daily. ipratropium 2021-0 Yes [id number] 1{spray Use 1 [facility] 42 mcg 3-15 1 } [place] in ity of (0.06 %) 00:00: each [place] nasal spray 00 nostril 2 Med ical (two) Branch times daily. triamcinolo 2021-0 Yes [id number] 1{spray Use 1 [facility] ne 55 mcg 3-15 } [place] in ity of nasal 00:00: each [place] inhaler 00 nostril 2 Medical (two) Branch times daily. ipratropium 2021-0 Yes [id number] 1{spray Use 1 [facility] 42 mcg 3-15 1 } [place] in ity of (0.06 %) 00:00: each [place] nasal spray 00 nostril 2 Med ical (two) Branch times daily. triamcinolo 2021-0 Yes [id number] 1{spray Use 1 [facility] ne 55 mcg 3-15 } [place] in ity of nasal 00:00: each [place] inhaler 00 nostril 2 Medical (two) Branch times daily. ipratropium 2021-0 Yes [id number] 1{spray Use 1 [facility] 42 mcg 3-15 1 } [place] in ity of (0.06 %) 00:00: each [place] nasal spray 00 nostril 2 Med ical (two) Branch times daily. triamcinolo 2021-0 Yes [id number] 1{spray Use 1 [facility] ne 55 mcg 3-15 } [place] in ity of nasal 00:00: each [place] inhaler 00 nostril 2 Medical (two) Branch times daily. ipratropium 2021-0 Yes [id number] 1{spray Use 1 [facility] 42 mcg 3-15 1 } [place] in ity of (0.06 %) 00:00: each [place] nasal spray 00 nostril 2 Med ical (two) Branch times daily. triamcinolo 2021-0 Yes [id number] 1{spray Use 1 [facility] ne 55 mcg 3-15 } [place] in ity of nasal 00:00: each [place] inhaler 00 nostril 2 Medical (two) Branch times daily. ipratropium 2021-0 Yes [id number] 1{spray Use 1 [facility] 42 mcg 3-15 1 } [place] in ity of (0.06 %) 00:00: each [place] nasal spray 00 nostril 2 Med ical (two) Branch times daily. triamcinolo 2021-0 Yes [id number] 1{spray Use 1 [facility] ne 55 mcg 3-15 } [place] in ity of nasal 00:00: each [place] inhaler 00 nostril 2 Medical (two) Branch times daily. ipratropium 2021-0 Yes [id number] 1{spray Use 1 [facility] 42 mcg 3-15 1 } [place] in ity of (0.06 %) 00:00: each [place] nasal spray 00 nostril 2 Med ical (two) Branch times daily. triamcinolo 2021-0 Yes [id number] 1{spray Use 1 [facility] ne 55 mcg 3-15 } [place] in ity of nasal 00:00: each [place] inhaler 00 nostril 2 Medical (two) Branch times daily. ipratropium 2021-0 Yes [id number] 1{spray Use 1 [facility] 42 mcg 3-15 1 } [place] in ity of (0.06 %) 00:00: each [place] nasal spray 00 nostril 2 Med ical (two) Branch times daily. triamcinolo 2021-0 Yes [id number] 1{spray Use 1 [facility] ne 55 mcg 3-15 } [place] in ity of nasal 00:00: each [place] inhaler 00 nostril 2 Medical (two) Branch times daily. ipratropium 2021-0 Yes [id number] 1{spray Use 1 [facility] 42 mcg 3-15 1 } [place] in ity of (0.06 %) 00:00: each [place] nasal spray 00 nostril 2 Med ical (two) Branch times daily. triamcinolo 2021-0 Yes [id number] 1{spray Use 1 [facility] ne 55 mcg 3-15 } [place] in ity of nasal 00:00: each [place] inhaler 00 nostril 2 Medical (two) Branch times daily. ipratropium 2021-0 Yes [id number] 1{spray Use 1 [facility] 42 mcg 3-15 1 } [place] in ity of (0.06 %) 00:00: each [place] nasal spray 00 nostril 2 Med ical (two) Branch times daily. triamcinolo 2021-0 Yes [id number] 1{spray Use 1 [facility] ne 55 mcg 3-15 } [place] in ity of nasal 00:00: each [place] inhaler 00 nostril 2 Medical (two) Branch times daily. ipratropium 2021-0 Yes [id number] 1{spray Use 1 [facility] 42 mcg 3-15 1 } [place] in ity of (0.06 %) 00:00: each [place] nasal spray 00 nostril 2 Med ical (two) Branch times daily. triamcinolo 2021-0 Yes [id number] 1{spray Use 1 [facility] ne 55 mcg 3-15 } [place] in ity of nasal 00:00: each [place] inhaler 00 nostril 2 Medical (two) Branch times daily. ipratropium 2021-0 Yes [id number] 1{spray Use 1 [facility] 42 mcg 3-15 1 } [place] in ity of (0.06 %) 00:00: each [place] nasal spray 00 nostril 2 Med ical (two) Branch times daily. triamcinolo 2021-0 Yes [id number] 1{spray Use 1 [facility] ne 55 mcg 3-15 } [place] in ity of nasal 00:00: each [place] inhaler 00 nostril 2 Medical (two) Branch times daily. ipratropium 2021-0 Yes [id number] 1{spray Use 1 [facility] 42 mcg 3-15 1 } [place] in ity of (0.06 %) 00:00: each [place] nasal spray 00 nostril 2 Med ical (two) Branch times daily. triamcinolo 2021-0 Yes [id number] 1{spray Use 1 [facility] ne 55 mcg 3-15 } [place] in ity of nasal 00:00: each [place] inhaler 00 nostril 2 Medical (two) Branch times daily. ipratropium 2021-0 Yes [id number] 1{spray Use 1 [facility] 42 mcg 3-15 1 } [place] in ity of (0.06 %) 00:00: each [place] nasal spray 00 nostril 2 Med ical (two) Branch times daily. triamcinolo 2021-0 Yes [id number] 1{spray Use 1 [facility] ne 55 mcg 3-15 } [place] [place] [facility] [facility] 00:00: each [place] inhaler 00 nostril 2 [facility] (two) Branch times daily. ipratropium 2021-0 Yes [id number] 1{spray Use 1 [facility] 42 mcg 3-15 1 } [place] [facility] of (0.06 %) 00:00: each [place] nasal spray 00 nostril 2 Med ical (two) Branch times daily. triamcinolo 2021-0 Yes [id number] 1{spray Use 1 [facility] 55 mcg 3-15 } [place] [facility] 00:00: each [place] inhaler 00 nostril 2 Medical (two) Branch times daily. ipratropium 2021-0 Yes [id number] 1{spray Use 1 [facility] 42 mcg 3-15 1 } [place] [facility] of (0.06 %) 00:00: each [place] nasal spray 00 nostril 2 Med ical (two) Branch times daily. triamcinolo 2021-0 Yes [id number] 1{spray Use 1 [facility] 55 mcg 3-15 } [place] [facility] 00:00: each [place] inhaler 00 nostril 2 Medical (two) Branch times daily. ipratropium 2021-0 Yes [id number] 1{spray Use 1 [facility] 42 mcg 3-15 1 } [place] [facility] of (0.06 %) 00:00: each [place] nasal spray 00 nostril 2 Med ical (two) Branch times daily. triamcinolo 2021-0 Yes [id number] 1{spray Use 1 [facility] 55 mcg 3-15 } [place] [facility] nasal 00:00: each [place] inhaler 00 nostril 2 [facility] (two) Branch times daily. ipratropium 2021-0 Yes [id number] 1{spray Use 1 [facility] 42 mcg 3-15 1 } [place] [facility] of (0.06 %) 00:00: each [place] nasal spray 00 nostril 2 Med ical (two) Branch times daily. triamcinolo 2021-0 Yes [id number] 1{spray Use 1 [facility] 55 mcg 3-15 } [place] [facility] nasal 00:00: each [place] inhaler 00 nostril 2 [facility] (two) Branch times daily. ipratropium 2021-0 Yes [id number] 1{spray Use 1 [facility] 42 mcg 3-15 1 } [place] [facility] of (0.06 %) 00:00: each [place] nasal spray 00 nostril 2 Med ical (two) Branch times daily. triamcinolo 2021-0 Yes [id number] 1{spray Use 1 [facility] 55 mcg 3-15 } [place] [facility] nasal 00:00: each [place] inhaler 00 nostril 2 [facility] (two) Branch times daily. ipratropium 2021-0 Yes [id number] 1{spray Use 1 [facility] 42 mcg 3-15 1 } [place] [facility] of (0.06 %) 00:00: each [place] nasal spray 00 nostril 2 Med ical (two) Branch times daily. triamcinolo 2021-0 Yes [id number] 1{spray Use 1 [facility] 55 mcg 3-15 } [place] [facility] nasal 00:00: each [place] inhaler 00 nostril 2 Medical (two) Branch times daily. ipratropium 2021-0 Yes [id number] 1{spray Use 1 [facility] 42 mcg 3-15 1 } [place] [facility] of (0.06 %) 00:00: each [place] nasal spray 00 nostril 2 Med ical (two) Branch times daily. triamcinolo 2021-0 Yes [id number] 1{spray Use 1 [facility] 55 mcg 3-15 } [place] [facility] nasal 00:00: each [place] inhaler 00 nostril 2 Medical (two) Branch times daily. ipratropium 2021-0 Yes [id number] 1{spray Use 1 [facility] 42 mcg 3-15 1 } [place] [facility] of (0.06 %) 00:00: each [place] nasal spray 00 nostril 2 Med ical (two) Branch times daily. triamcinolo 2021-0 Yes [id number] 1{spray Use 1 [facility] 55 mcg 3-15 } [place] [facility] nasal 00:00: each [place] inhaler 00 nostril 2 Medical (two) Branch times daily. ipratropium 2021-0 Yes [id number] 1{spray Use 1 [facility] 42 mcg 3-15 1 } [place] [facility] of (0.06 %) 00:00: each [place] nasal spray 00 nostril 2 Med ical (two) Branch times daily. triamcinolo 2021-0 Yes [id number] 1{spray Use 1 [facility] 55 mcg 3-15 } [place] [facility] nasal 00:00: each [place] inhaler 00 nostril 2 Medical (two) Branch times daily. ipratropium 2021-0 Yes [id number] 1{spray Use 1 [facility] 42 mcg 3-15 1 } [place] [facility] of (0.06 %) 00:00: each [place] nasal spray 00 nostril 2 Med ical (two) Branch times daily. triamcinolo 2021-0 Yes [id number] 1{spray Use 1 [facility] 55 mcg 3-15 } [place] [facility] nasal 00:00: each [place] inhaler 00 nostril 2 Medical (two) Branch times daily. ipratropium 2021-0 Yes [id number] 1{spray Use 1 [facility] 42 mcg 3-15 1 } [place] [facility] of (0.06 %) 00:00: each [place] nasal spray 00 nostril 2 Med ical (two) Branch times daily. triamcinolo 2021-0 Yes [id number] 1{spray Use 1 [facility] 55 mcg 3-15 } [place] [facility] nasal 00:00: each [place] inhaler 00 nostril 2 [facility] (two) Branch times daily. ipratropium 2021-0 Yes [id number] 1{spray Use 1 [facility] 42 mcg 3-15 1 } [place] [facility] of (0.06 %) 00:00: each [place] nasal spray 00 nostril 2 Med ical (two) Branch times daily. triamcinolo 2021-0 Yes [id number] 1{spray Use 1 [facility] 55 mcg 3-15 } [place] [facility] nasal 00:00: each [place] inhaler 00 nostril 2 [facility] (two) Branch times daily. ipratropium 2021-0 Yes [id number] 1{spray Use 1 [facility] 42 mcg 3-15 1 } [place] [facility] of (0.06 %) 00:00: each [place] nasal spray 00 nostril 2 Med ical (two) Branch times daily. triamcinolo 2021-0 Yes [id number] 1{spray Use 1 [facility] 55 mcg 3-15 } [place] [facility] nasal 00:00: each [place] inhaler 00 nostril 2 [facility] (two) Branch times daily. ipratropium 2021-0 Yes [id number] 1{spray Use 1 [facility] 42 mcg 3-15 1 } [place] [facility] of (0.06 %) 00:00: each [place] nasal spray 00 nostril 2 Med ical (two) Branch times daily. triamcinolo 2021-0 Yes [id number] 1{spray Use 1 [facility] 55 mcg 3-15 } [place] [facility] nasal 00:00: each [place] inhaler 00 nostril 2 [facility] (two) Branch times daily. ipratropium 2021-0 Yes [id number] 1{spray Use 1 [facility] 42 mcg 3-15 1 } [place] [facility] of (0.06 %) 00:00: each [place] nasal spray 00 nostril 2 Med ical (two) Branch times daily. triamcinolo 2021-0 Yes [id number] 1{spray Use 1 [facility] 55 mcg 3-15 } [place] [facility] nasal 00:00: each [place] inhaler 00 nostril 2 [facility] (two) Branch times daily. ipratropium 2021-0 Yes [id number] 1{spray Use 1 [facility] 42 mcg 3-15 1 } [place] [facility] of (0.06 %) 00:00: each [place] nasal spray 00 nostril 2 Med ical (two) Branch times daily. triamcinolo 2021-0 Yes [id number] 1{spray Use 1 [facility] 55 mcg 3-15 } [place] [facility] nasal 00:00: each [place] inhaler 00 nostril 2 [facility] (two) Branch times daily. ipratropium 2021-0 Yes [id number] 1{spray Use 1 [facility] 42 mcg 3-15 1 } [place] [facility] of (0.06 %) 00:00: each [place] nasal spray 00 nostril 2 Med ical (two) Branch times daily. triamcinolo 2021-0 Yes [id number] 1{spray Use 1 [facility] 55 mcg 3-15 } [place] [facility] nasal 00:00: each [place] inhaler 00 nostril 2 [facility] (two) Branch times daily. ipratropium 2021-0 Yes [id number] 1{spray Use 1 [facility] 42 mcg 3-15 1 } [place] [facility] of (0.06 %) 00:00: each [place] nasal spray 00 nostril 2 Med ical (two) Branch times daily. triamcinolo 2021-0 Yes [id number] 1{spray Use 1 [facility] 55 mcg 3-15 } [place] [facility] nasal 00:00: each [place] inhaler 00 nostril 2 [facility] (two) Branch times daily. ipratropium 2021-0 Yes [id number] 1{spray Use 1 [facility] 42 mcg 3-15 1 } [place] [facility] of (0.06 %) 00:00: each [place] nasal spray 00 nostril 2 Med ical (two) Branch times daily. triamcinolo 2021-0 Yes [id number] 1{spray Use 1 [facility] 55 mcg 3-15 } [place] [facility] nasal 00:00: each [place] inhaler 00 nostril 2 [facility] (two) Branch times daily. ipratropium 2021-0 Yes [id number] 1{spray Use 1 [facility] 42 mcg 3-15 1 } [place] [facility] of (0.06 %) 00:00: each [place] nasal spray 00 nostril 2 Med ical (two) Branch times daily. triamcinolo 2021-0 Yes [id number] 1{spray Use 1 [facility] 55 mcg 3-15 } [place] [facility] nasal 00:00: each [place] inhaler 00 nostril 2 [facility] (two) Branch times daily. ipratropium 2021-0 Yes [id number] 1{spray Use 1 [facility] 42 mcg 3-15 1 } [place] [facility] of (0.06 %) 00:00: each [place] nasal spray 00 nostril 2 Med ical (two) Branch times daily. triamcinolo 2021-0 Yes [id number] 1{spray Use 1 [facility] 55 mcg 3-15 } [place] [facility] nasal 00:00: each [place] inhaler 00 nostril 2 [facility] (two) Branch times daily. ipratropium 2021-0 Yes [id number] 1{spray Use 1 [facility] 42 mcg 3-15 1 } [place] [facility] of (0.06 %) 00:00: each [place] nasal spray 00 nostril 2 Med ical (two) Branch times daily. triamcinolo 2021-0 Yes [id number] 1{spray Use 1 [facility] 55 mcg 3-15 } [place] [facility] nasal 00:00: each [place] inhaler 00 nostril 2 [facility] (two) Branch times daily. ipratropium 2-0 Yes [id number] 1{spray Use 1 [facility] 42 mcg 3-15 1 } [place] [facility] of (0.06 %) 00:00: each [place] nasal spray 00 nostril 2 Med ical (two) Branch times daily. triamcinolo 2021-0 Yes [id number] 1{spray Use 1 [facility] 55 mcg 3-15 } [place] [facility] nasal 00:00: each [place] inhaler 00 nostril 2 [facility] (two) Branch times daily. ipratropium 2021-0 Yes [id number] 1{spray Use 1 [facility] 42 mcg 3-15 1 } [place] [facility] of (0.06 %) 00:00: each [place] nasal spray 00 nostril 2 Med ical (two) Branch times daily. triamcinolo 2021-0 Yes [id number] 1{spray Use 1 [facility] 55 mcg 3-15 } [place] [facility] nasal 00:00: each [place] inhaler 00 nostril 2 [facility] (two) Branch times daily. ipratropium 2021-0 Yes [id number] 1{spray Use 1 [facility] 42 mcg 3-15 1 } [place] [facility] of (0.06 %) 00:00: each [place] nasal spray 00 nostril 2 Med ical (two) Branch times daily. triamcinolo 2021-0 Yes [id number] 1{spray Use 1 [facility] 55 mcg 3-15 } [place] [facility] nasal 00:00: each [place] inhaler 00 nostril 2 [facility] (two) Branch times daily. ipratropium 2021-0 Yes [id number] 1{spray Use 1 [facility] 42 mcg 3-15 1 } [place] [facility] of (0.06 %) 00:00: each [place] nasal spray 00 nostril 2 Med ical (two) Branch times daily. triamcinolo 2021-0 Yes [id number] 1{spray Use 1 [facility] 55 mcg 3-15 } [place] [facility] nasal 00:00: each [place] inhaler 00 nostril 2 [facility] (two) Branch times daily. ipratropium 2021-0 Yes [id number] 1{spray Use 1 [facility] 42 mcg 3-15 1 } [place] [facility] of (0.06 %) 00:00: each [place] nasal spray 00 nostril 2 Med ical (two) Branch times daily. triamcinolo 2021-0 Yes [id number] 1{spray Use 1 [facility] 55 mcg 3-15 } [place] [facility] nasal 00:00: each [place] inhaler 00 nostril 2 Medical (two) Branch times daily. ipratropium 2021-0 Yes [id number] 1{spray Use 1 [facility] 42 mcg 3-15 1 } [place] [facility] of (0.06 %) 00:00: each [place] nasal spray 00 nostril 2 Med ical (two) Branch times daily. triamcinolo 2021-0 Yes [id number] 1{spray Use 1 [facility] 55 mcg 3-15 } [place] [facility] nasal 00:00: each [place] inhaler 00 nostril 2 [facility] (two) Branch times daily. ipratropium 2021-0 Yes [id number] 1{spray Use 1 [facility] 42 mcg 3-15 1 } [place] [facility] of (0.06 %) 00:00: each [place] nasal spray 00 nostril 2 Med ical (two) Branch times daily. triamcinolo 2021-0 Yes [id number] 1{spray Use 1 [facility] 55 mcg 3-15 } [place] [facility] nasal 00:00: each [place] inhaler 00 nostril 2 [facility] (two) Branch times daily. ipratropium 2021-0 Yes [id number] 1{spray Use 1 [facility] 42 mcg 3-15 1 } [place] [facility] of (0.06 %) 00:00: each [place] nasal spray 00 nostril 2 Med ical (two) Branch times daily. triamcinolo 2021-0 Yes [id number] 1{spray Use 1 [facility] 55 mcg 3-15 } [place] [facility] nasal 00:00: each [place] inhaler 00 nostril 2 [facility] (two) Branch times daily. ipratropium 2-0 Yes [id number] 1{spray Use 1 [facility] 42 mcg 3-15 1 } [place] [facility] of (0.06 %) 00:00: each [place] nasal spray 00 nostril 2 Med ical (two) Branch times daily. triamcinolo 2021-0 Yes [id number] 1{spray Use 1 [facility] 55 mcg 3-15 } [place] [facility] nasal 00:00: each [place] inhaler 00 nostril 2 Medical (two) Branch times daily. ipratropium 2021-0 Yes [id number] 1{spray Use 1 [facility] 42 mcg 3-15 1 } [place] [facility] of (0.06 %) 00:00: each [place] nasal spray 00 nostril 2 Med ical (two) Branch times daily. triamcinolo 2021-0 Yes [id number] 1{spray Use 1 [facility] 55 mcg 3-15 } [place] [facility] nasal 00:00: each [place] inhaler 00 nostril 2 [facility] (two) Branch times daily. ipratropium 2021-0 Yes [id number] 1{spray Use 1 [facility] 42 mcg 3-15 1 } [place] [facility] of (0.06 %) 00:00: each [place] nasal spray 00 nostril 2 Med ical (two) Branch times daily. triamcinolo 2021-0 Yes [id number] 1{spray Use 1 [facility] 55 mcg 3-15 } [place] [facility] nasal 00:00: each [place] inhaler 00 nostril 2 [facility] (two) Branch times daily. ipratropium 2021-0 Yes [id number] 1{spray Use 1 [facility] 42 mcg 3-15 1 } [place] [facility] of (0.06 %) 00:00: each [place] nasal spray 00 nostril 2 Med ical (two) Branch times daily. triamcinolo 2021-0 Yes [id number] 1{spray Use 1 [facility] 55 mcg 3-15 } [place] [facility] nasal 00:00: each [place] inhaler 00 nostril 2 [facility] (two) Branch times daily. ipratropium 2021-0 Yes [id number] 1{spray Use 1 [facility] 42 mcg 3-15 1 } [place] [facility] of (0.06 %) 00:00: each [place] nasal spray 00 nostril 2 Med ical (two) Branch times daily. triamcinolo 2021-0 Yes [id number] 1{spray Use 1 [facility] 55 mcg 3-15 } [place] [facility] nasal 00:00: each [place] inhaler 00 nostril 2 Medical (two) Branch times daily. ipratropium 2-0 Yes [id number] 1{spray Use 1 [facility] 42 mcg 3-15 1 } [place] [facility] of (0.06 %) 00:00: each [place] nasal spray 00 nostril 2 Med ical (two) Branch times daily. triamcinolo 2021-0 Yes [id number] 1{spray Use 1 [facility] 55 mcg 3-15 } [place] [facility] nasal 00:00: each [place] inhaler 00 nostril 2 Medical (two) Branch times daily. ipratropium 2021-0 Yes [id number] 1{spray Use 1 [facility] 42 mcg 3-15 1 } [place] [facility] of (0.06 %) 00:00: each [place] nasal spray 00 nostril 2 Med ical (two) Branch times daily. triamcinolo 2021-0 Yes [id number] 1{spray Use 1 [facility] 55 mcg 3-15 } [place] [facility] nasal 00:00: each [place] inhaler 00 nostril 2 Medical (two) Branch times daily. ipratropium 2021-0 Yes [id number] 1{spray Use 1 [facility] 42 mcg 3-15 1 } [place] [facility] of (0.06 %) 00:00: each [place] nasal spray 00 nostril 2 Med ical (two) Branch times daily. triamcinolo 2021-0 Yes [id number] 1{spray Use 1 [facility] 55 mcg 3-15 } [place] [facility] nasal 00:00: each [place] inhaler 00 nostril 2 Medical (two) Branch times daily. ipratropium 2021-0 Yes [id number] 1{spray Use 1 [facility] 42 mcg 3-15 1 } [place] [facility] of (0.06 %) 00:00: each [place] nasal spray 00 nostril 2 Med ical (two) Branch times daily. triamcinolo 2021-0 Yes [id number] 1{spray Use 1 [facility] 55 mcg 3-15 } [place] [facility] nasal 00:00: each [place] inhaler 00 nostril 2 Medical (two) Branch times daily. ipratropium 2021-0 Yes [id number] 1{spray Use 1 [facility] 42 mcg 3-15 1 } [place] [facility] of (0.06 %) 00:00: each [place] nasal spray 00 nostril 2 Med ical (two) Branch times daily. triamcinolo 2021-0 Yes [id number] 1{spray Use 1 [facility] 55 mcg 3-15 } [place] [facility] of nasal 00:00: each [place] inhaler 00 nostril 2 Medical (two) Branch times daily. ipratropium 2021-0 Yes [id number] 1{spray Use 1 [facility] 42 mcg 3-15 1 } [place] [facility] of (0.06 %) 00:00: each [place] nasal spray 00 nostril 2 Med ical (two) Branch times daily. triamcinolo 2021-0 Yes [id number] 1{spray Use 1 [facility] 55 mcg 3-15 } [place] [facility] of nasal 00:00: each [place] inhaler 00 nostril 2 Medical (two) Branch times daily. ipratropium 2021-0 Yes [id number] 1{spray Use 1 [facility] 42 mcg 3-15 1 } [place] [facility] of (0.06 %) 00:00: each [place] nasal spray 00 nostril 2 Med ical (two) Branch times daily. triamcinolo 2021-0 Yes [id number] 1{spray Use 1 [facility] 55 mcg 3-15 } [place] [facility] nasal 00:00: each [place] inhaler 00 nostril 2 Medical (two) Branch times daily. ipratropium 2021-0 Yes [id number] 1{spray Use 1 [facility] 42 mcg 3-15 1 } [place] [facility] of (0.06 %) 00:00: each [place] nasal spray 00 nostril 2 Med ical (two) Branch times daily. triamcinolo 2021-0 Yes [id number] 1{spray Use 1 [facility] ne 55 mcg 3-15 } [place] [facility] of nasal 00:00: each [place] inhaler 00 nostril 2 Medical (two) Branch times daily. ipratropium 2021-0 Yes [id number] 1{spray Use 1 [facility] 42 mcg 3-15 1 } [place] [facility] of (0.06 %) 00:00: each [place] nasal spray 00 nostril 2 Med ical (two) Branch times daily. albuterol 0 Yes [id number] 2.5mg Inhale 3 [facility] 2.5 mg /3 3-10 mL every 2 ity of mL (0.083 00:00: (two) [place] %) 00 hours as Medical nebulizer needed for Bran ch solution Shortness of Breath or Wheezing. budesonide 2022-0 Yes [id number] .5mg Inhale 2 [facility] 0.5 mg/2 mL 3-10 mL 2 (two) it y of nebulizer 00:00: times [place] solution 00 daily. [facility] albuterol 2021-0 Yes [id number] 2.5mg Inhale 3 [facility] 2.5 mg /3 3-10 mL every 2 ity of mL (0.083 00:00: (two) [place] %) 00 hours as Medical nebulizer needed for Bran ch solution Shortness of Breath or Wheezing. budesonide 2021-0 Yes [id number] .5mg Inhale 2 [facility] 0.5 mg/2 mL 3-10 mL 2 (two) it y of nebulizer 00:00: times [place] solution 00 daily. [facility] albuterol 2021-0 Yes [id number] 2.5mg Inhale 3 [facility] 2.5 mg /3 3-10 mL every 2 ity of mL (0.083 00:00: (two) [place] %) 00 hours as Medical nebulizer needed for Bran ch solution Shortness of Breath or Wheezing. budesonide 2021-0 Yes [id number] .5mg Inhale 2 [facility] 0.5 mg/2 mL 3-10 mL 2 (two) it y of nebulizer 00:00: times [place] solution 00 daily. [facility] albuterol 2021-0 Yes [id number] 2.5mg Inhale 3 [facility] 2.5 mg /3 3-10 mL every 2 ity of mL (0.083 00:00: (two) [place] %) 00 hours as Medical nebulizer needed for Bran ch solution Shortness of Breath or Wheezing. budesonide 2021-0 Yes [id number] .5mg Inhale 2 [facility] 0.5 mg/2 mL 3-10 mL 2 (two) it y of nebulizer 00:00: times [place] solution 00 daily. [facility] albuterol 2021-0 Yes [id number] 2.5mg Inhale 3 [facility] 2.5 mg /3 3-10 mL every 2 ity of mL (0.083 00:00: (two) [place] %) 00 hours as Medical nebulizer needed for Bran ch solution Shortness of Breath or Wheezing. budesonide 2021-0 Yes [id number] .5mg Inhale 2 [facility] 0.5 mg/2 mL 3-10 mL 2 (two) it y of nebulizer 00:00: times [place] solution 00 daily. [facility] albuterol 2021-0 Yes [id number] 2.5mg Inhale 3 [facility] 2.5 mg /3 3-10 mL every 2 ity of mL (0.083 00:00: (two) [place] %) 00 hours as Medical nebulizer needed for Bran ch solution Shortness of Breath or Wheezing. budesonide 2021-0 Yes [id number] .5mg Inhale 2 [facility] 0.5 mg/2 mL 3-10 mL 2 (two) it y of nebulizer 00:00: times [place] solution 00 daily. [facility] albuterol 2021-0 Yes [id number] 2.5mg Inhale 3 [facility] 2.5 mg /3 3-10 mL every 2 ity of mL (0.083 00:00: (two) [place] %) 00 hours as Medical nebulizer needed for Bran ch solution Shortness of Breath or Wheezing. budesonide 2021-0 Yes [id number] .5mg Inhale 2 [facility] 0.5 mg/2 mL 3-10 mL 2 (two) it y of nebulizer 00:00: times [place] solution 00 daily. [facility] albuterol 2021-0 Yes [id number] 2.5mg Inhale 3 [facility] 2.5 mg /3 3-10 mL every 2 ity of mL (0.083 00:00: (two) [place] %) 00 hours as Medical nebulizer needed for Bran ch solution Shortness of Breath or Wheezing. budesonide 2021-0 Yes [id number] .5mg Inhale 2 [facility] 0.5 mg/2 mL 3-10 mL 2 (two) it y of nebulizer 00:00: times [place] solution 00 daily. [facility] albuterol 2021-0 Yes [id number] 2.5mg Inhale 3 [facility] 2.5 mg /3 3-10 mL every 2 ity of mL (0.083 00:00: (two) [place] %) 00 hours as Medical nebulizer needed for Bran ch solution Shortness of Breath or Wheezing. budesonide 2021-0 Yes [id number] .5mg Inhale 2 [facility] 0.5 mg/2 mL 3-10 mL 2 (two) it y of nebulizer 00:00: times [place] solution 00 daily. [facility] albuterol 2021-0 Yes [id number] 2.5mg Inhale 3 [facility] 2.5 mg /3 3-10 mL every 2 ity of mL (0.083 00:00: (two) [place] %) 00 hours as Medical nebulizer needed for Bran ch solution Shortness of Breath or Wheezing. budesonide 2021-0 Yes [id number] .5mg Inhale 2 [facility] 0.5 mg/2 mL 3-10 mL 2 (two) it y of nebulizer 00:00: times [place] solution 00 daily. [facility] albuterol 2021-0 Yes [id number] 2.5mg Inhale 3 [facility] 2.5 mg /3 3-10 mL every 2 ity of mL (0.083 00:00: (two) [place] %) 00 hours as Medical nebulizer needed for Bran ch solution Shortness of Breath or Wheezing. budesonide 2021-0 Yes [id number] .5mg Inhale 2 [facility] 0.5 mg/2 mL 3-10 mL 2 (two) it y of nebulizer 00:00: times [place] solution 00 daily. [facility] albuterol 2021-0 Yes [id number] 2.5mg Inhale 3 [facility] 2.5 mg /3 3-10 mL every 2 ity of mL (0.083 00:00: (two) [place] %) 00 hours as Medical nebulizer needed for Bran ch solution Shortness of Breath or Wheezing. budesonide 2021-0 Yes [id number] .5mg Inhale 2 [facility] 0.5 mg/2 mL 3-10 mL 2 (two) it y of nebulizer 00:00: times [place] solution 00 daily. [facility] albuterol 2021-0 Yes [id number] 2.5mg Inhale 3 [facility] 2.5 mg /3 3-10 mL every 2 ity of mL (0.083 00:00: (two) [place] %) 00 hours as Medical nebulizer needed for Bran ch solution Shortness of Breath or Wheezing. budesonide 2021-0 Yes [id number] .5mg Inhale 2 [facility] 0.5 mg/2 mL 3-10 mL 2 (two) it y of nebulizer 00:00: times [place] solution 00 daily. [facility] albuterol 2021-0 Yes [id number] 2.5mg Inhale 3 [facility] 2.5 mg /3 3-10 mL every 2 ity of mL (0.083 00:00: (two) [place] %) 00 hours as Medical nebulizer needed for Bran ch solution Shortness of Breath or Wheezing. budesonide 2022-0 Yes [id number] .5mg Inhale 2 [facility] 0.5 mg/2 mL 3-10 mL 2 (two) it y of nebulizer 00:00: times [place] solution 00 daily. [facility] budesonide 2022-0 Yes [id number] .5mg Inhale 2 [facility] 0.5 mg/2 mL 3-10 mL 2 (two) it y of nebulizer 00:00: times [place] solution 00 daily. [facility] budesonide 2022-0 Yes [id number] .5mg Inhale 2 [facility] 0.5 mg/2 mL 3-10 mL 2 (two) it y of nebulizer 00:00: times [place] solution 00 daily. [facility] budesonide 2022-0 Yes [id number] .5mg Inhale 2 [facility] 0.5 mg/2 mL 3-10 mL 2 (two) it y of nebulizer 00:00: times [place] solution 00 daily. [facility] budesonide 2-0 Yes [id number] .5mg Inhale 2 [facility] 0.5 mg/2 mL 3-10 mL 2 (two) it y of nebulizer 00:00: times [place] solution 00 daily. [facility] budesonide 2-0 Yes [id number] .5mg Inhale 2 [facility] 0.5 mg/2 mL 3-10 mL 2 (two) it y of nebulizer 00:00: times [place] solution 00 daily. [facility] budesonide 2022-0 Yes [id number] .5mg Inhale 2 [facility] 0.5 mg/2 mL 3-10 mL 2 (two) it y of nebulizer 00:00: times [place] solution 00 daily. [facility] budesonide 2-0 Yes [id number] .5mg Inhale 2 [facility] 0.5 mg/2 mL 3-10 mL 2 (two) it y of nebulizer 00:00: times [place] solution 00 daily. [facility] budesonide 2022-0 Yes [id number] .5mg Inhale 2 [facility] 0.5 mg/2 mL 3-10 mL 2 (two) it y of nebulizer 00:00: times [place] solution 00 daily. [facility] budesonide 2022-0 Yes [id number] .5mg Inhale 2 [facility] 0.5 mg/2 mL 3-10 mL 2 (two) it y of nebulizer 00:00: times [place] solution 00 daily. [facility] budesonide 2-0 Yes [id number] .5mg Inhale 2 [facility] 0.5 mg/2 mL 3-10 mL 2 (two) it y of nebulizer 00:00: times [place] solution 00 daily. [facility] budesonide 2022-0 Yes [id number] .5mg Inhale 2 [facility] 0.5 mg/2 mL 3-10 mL 2 (two) it y of nebulizer 00:00: times [place] solution 00 daily. [facility] budesonide 2-0 Yes [id number] .5mg Inhale 2 [facility] 0.5 mg/2 mL 3-10 mL 2 (two) it y of nebulizer 00:00: times [place] solution 00 daily. [facility] budesonide 2-0 Yes [id number] .5mg Inhale 2 [facility] 0.5 mg/2 mL 3-10 mL 2 (two) it y of nebulizer 00:00: times [place] solution 00 daily. [facility] budesonide 2-0 Yes [id number] .5mg Inhale 2 [facility] 0.5 mg/2 mL 3-10 mL 2 (two) it y of nebulizer 00:00: times [place] solution 00 daily. [facility] budesonide 2-0 Yes [id number] .5mg Inhale 2 [facility] 0.5 mg/2 mL 3-10 mL 2 (two) it y of nebulizer 00:00: times [place] solution 00 daily. [facility] budesonide 2-0 Yes [id number] .5mg Inhale 2 [facility] 0.5 mg/2 mL 3-10 mL 2 (two) it y of nebulizer 00:00: times [place] solution 00 daily. [facility] budesonide 2-0 Yes [id number] .5mg Inhale 2 [facility] 0.5 mg/2 mL 3-10 mL 2 (two) it y of nebulizer 00:00: times [place] solution 00 daily. [facility] budesonide 2022-0 Yes [id number] .5mg Inhale 2 [facility] 0.5 mg/2 mL 3-10 mL 2 (two) it y of nebulizer 00:00: times [place] solution 00 daily. [facility] budesonide 2022-0 Yes [id number] .5mg Inhale 2 [facility] 0.5 mg/2 mL 3-10 mL 2 (two) it y of nebulizer 00:00: times [place] solution 00 daily. [facility] budesonide 2-0 Yes [id number] .5mg Inhale 2 [facility] 0.5 mg/2 mL 3-10 mL 2 (two) it y of nebulizer 00:00: times [place] solution 00 daily. [facility] budesonide 2022-0 Yes [id number] .5mg Inhale 2 [facility] 0.5 mg/2 mL 3-10 mL 2 (two) it y of nebulizer 00:00: times [place] solution 00 daily. [facility] budesonide 2-0 Yes [id number] .5mg Inhale 2 [facility] 0.5 mg/2 mL 3-10 mL 2 (two) it y of nebulizer 00:00: times [place] solution 00 daily. [facility] budesonide 2-0 Yes [id number] .5mg Inhale 2 [facility] 0.5 mg/2 mL 3-10 mL 2 (two) it y of nebulizer 00:00: times [place] solution 00 daily. [facility] budesonide 2-0 Yes [id number] .5mg Inhale 2 [facility] 0.5 mg/2 mL 3-10 mL 2 (two) it y of nebulizer 00:00: times [place] solution 00 daily. [facility] budesonide 2-0 Yes [id number] .5mg Inhale 2 [facility] 0.5 mg/2 mL 3-10 mL 2 (two) it y of nebulizer 00:00: times [place] solution 00 daily. [facility] budesonide 2-0 Yes [id number] .5mg Inhale 2 [facility] 0.5 mg/2 mL 3-10 mL 2 (two) it y of nebulizer 00:00: times [place] solution 00 daily. [facility] budesonide 2-0 Yes [id number] .5mg Inhale 2 [facility] 0.5 mg/2 mL 3-10 mL 2 (two) it y of nebulizer 00:00: times [place] solution 00 daily. [facility] budesonide 2022-0 Yes [id number] .5mg Inhale 2 [facility] 0.5 mg/2 mL 3-10 mL 2 (two) it y of nebulizer 00:00: times [place] solution 00 daily. [facility] budesonide 2022-0 Yes [id number] .5mg Inhale 2 [facility] 0.5 mg/2 mL 3-10 mL 2 (two) it y of nebulizer 00:00: times [place] solution 00 daily. [facility] budesonide 2021-0 Yes [id number] .5mg Inhale 2 [facility] 0.5 mg/2 mL 3-10 mL 2 (two) it y of nebulizer 00:00: times [place] solution 00 daily. [facility] budesonide 2021-0 Yes [id number] .5mg Inhale 2 [facility] 0.5 mg/2 mL 3-10 mL 2 (two) it y of nebulizer 00:00: times [place] solution 00 daily. [facility] budesonide 2021-0 Yes [id number] .5mg Inhale 2 [facility] 0.5 mg/2 mL 3-10 mL 2 (two) it y of nebulizer 00:00: times [place] solution 00 daily. [facility] budesonide 2021-0 Yes [id number] .5mg Inhale 2 [facility] 0.5 mg/2 mL 3-10 mL 2 (two) it y of nebulizer 00:00: times [place] solution 00 daily. [facility] budesonide 2021-0 2022- No [id number] .5mg Inhale 2 [facility] 0.5 mg/2 mL 3-10 01-05 mL 2 (two) i ty of nebulizer 00:00: 00:00 times [place] solution 00 :00 daily. [facility] budesonide 2021-0 2022- No [id number] .5mg Inhale 2 [facility] 0.5 mg/2 mL 3-10 01-05 mL 2 (two) i ty of nebulizer 00:00: 00:00 times [place] solution 00 :00 daily. [facility] budesonide 2021-0 3- No [id number] .5mg Inhale 2 [facility] 0.5 mg/2 mL 3-10 01-05 mL 2 (two) i ty of nebulizer 00:00: 00:00 times [place] solution 00 :00 daily. [facility] budesonide 2021-0 3- No [id number] .5mg Inhale 2 [facility] 0.5 mg/2 mL 3-10 01-05 mL 2 (two) i ty of nebulizer 00:00: 00:00 times [place] solution 00 :00 daily. [facility] albuterol 2021-0 2- No [id number] 2.5mg Inhale 3 [facility] 2.5 mg /3 3-10 09-29 mL every 2 ity of mL (0.083 00:00: 00:00 (two) [place] %) 00 :00 hours as Medical nebulizer needed for Bran ch solution Shortness of Breath or Wheezing. albuterol 2- No [id number] 2.5mg Inhale 3 [facility] 2.5 mg /3 3-10 09-29 mL every 2 ity of mL (0.083 00:00: 00:00 (two) [place] %) 00 :00 hours as Medical nebulizer needed for Bran ch solution Shortness of Breath or Wheezing. albuterol 2- No [id number] 2.5mg Inhale 3 [facility] 2.5 mg /3 3-10 09-29 mL every 2 ity of mL (0.083 00:00: 00:00 (two) [place] %) 00 :00 hours as Medical nebulizer needed for Bran ch solution Shortness of Breath or Wheezing. Nebulizer Yes [id number] Provide [facility] Accessories 3-04 nebulizer ity of Kit 00:00: kit and [place] 00 appropriat Medical e Branch accessorie s. Nebulizer Yes [id number] Provide [facility] Accessories 3-04 nebulizer ity of Kit 00:00: kit and [place] 00 appropriat Medical e Branch accessorie s. Nebulizer Yes [id number] Provide [facility] Accessories 3-04 nebulizer ity of Kit 00:00: kit and [place] 00 appropriat Medical e Branch accessorie s. Nebulizer 0 Yes [id number] Provide [facility] Accessories 3-04 nebulizer ity of Kit 00:00: kit and [place] 00 appropriat Medical e Branch accessorie s. Nebulizer 0 Yes [id number] Provide [facility] Accessories 3-04 nebulizer ity of Kit 00:00: kit and [place] 00 appropriat Medical e Branch accessorie s. Nebulizer 0 Yes [id number] Provide [facility] Accessories 3-04 nebulizer ity of Kit 00:00: kit and [place] 00 appropriat Medical e Branch accessorie s. Nebulizer 0 Yes [id number] Provide [facility] Accessories 3-04 nebulizer ity of Kit 00:00: kit and [place] 00 appropriat Medical e Branch accessorie s. Nebulizer 0 Yes [id number] Provide [facility] Accessories 3-04 nebulizer ity of Kit 00:00: kit and [place] 00 appropriat Medical e Branch accessorie s. Nebulizer 2021-0 Yes [id number] Provide [facility] Accessories 3-04 nebulizer ity of Kit 00:00: kit and [place] 00 appropriat Medical e Branch accessorie s. Nebulizer 2021-0 Yes [id number] Provide [facility] Accessories 3-04 nebulizer ity of Kit 00:00: kit and 00 appropriat Medical e Branch accessorie s. Nebulizer 0 Yes [id number] Provide [facility] Accessories 3-04 nebulizer ity of Kit 00:00: kit and 00 appropriat Medical e Branch accessorie s. Nebulizer 0 Yes [id number] Provide [facility] Accessories 3-04 nebulizer ity of Kit 00:00: kit and [place] 00 appropriat Medical e Branch accessorie s. Nebulizer 2021-0 Yes [id number] Provide [facility] Accessories 3-04 nebulizer ity of Kit 00:00: kit and 00 appropriat Medical e Branch accessorie s. Nebulizer 2021-0 Yes [id number] Provide [facility] Accessories 3-04 nebulizer ity of Kit 00:00: kit and 00 appropriat Medical e Branch accessorie s. Nebulizer 2021-0 Yes [id number] Provide [facility] Accessories 3-04 nebulizer ity of Kit 00:00: kit and [place] 00 appropriat Medical e Branch accessorie s. Nebulizer 2021-0 Yes [id number] Provide [facility] Accessories 3-04 nebulizer ity of Kit 00:00: kit and appropriat Medical e Branch accessorie s. Nebulizer 2021-0 Yes [id number] Provide [facility] Accessories 3-04 nebulizer ity of Kit 00:00: kit and 00 appropriat Medical e Branch accessorie s. Nebulizer 2021-0 Yes [id number] Provide [facility] Accessories 3-04 nebulizer ity of Kit 00:00: kit and 00 appropriat Medical e Branch accessorie s. Nebulizer 2021-0 Yes [id number] Provide [facility] Accessories 3-04 nebulizer ity of Kit 00:00: kit and appropriat Medical e Branch accessorie s. Nebulizer 2021-0 Yes [id number] Provide [facility] Accessories 3-04 nebulizer ity of Kit 00:00: kit and [place] 00 appropriat Medical e Branch accessorie s. Nebulizer 2021-0 Yes [id number] Provide [facility] Accessories 3-04 nebulizer ity of Kit 00:00: kit and [place] 00 appropriat Medical e Branch accessorie s. Nebulizer 2021-0 Yes [id number] Provide [facility] Accessories 3-04 nebulizer ity of Kit 00:00: kit and [place] 00 appropriat Medical e Branch accessorie s. Nebulizer 2021-0 Yes [id number] Provide [facility] Accessories 3-04 nebulizer ity of Kit 00:00: kit and [place] 00 appropriat Medical e Branch accessorie s. Nebulizer 2021-0 Yes [id number] Provide [facility] Accessories 3-04 nebulizer ity of Kit 00:00: kit and [place] 00 appropriat Medical e Branch accessorie s. Nebulizer 2021-0 Yes [id number] Provide [facility] Accessories 3-04 nebulizer ity of Kit 00:00: kit and [place] 00 appropriat Medical e Branch accessorie s. Nebulizer 2021-0 Yes [id number] Provide [facility] Accessories 3-04 nebulizer ity of Kit 00:00: kit and [place] 00 appropriat Medical e Branch accessorie s. Nebulizer 2021-0 Yes [id number] Provide [facility] Accessories 3-04 nebulizer ity of Kit 00:00: kit and [place] 00 appropriat Medical e Branch accessorie s. Nebulizer 2021-0 Yes [id number] Provide [facility] Accessories 3-04 nebulizer ity of Kit 00:00: kit and [place] 00 appropriat Medical e Branch accessorie s. Nebulizer 2021-0 Yes [id number] Provide [facility] Accessories 3-04 nebulizer ity of Kit 00:00: kit and [place] 00 appropriat Medical e Branch accessorie s. Nebulizer 2021-0 Yes [id number] Provide [facility] Accessories 3-04 nebulizer ity of Kit 00:00: kit and [place] 00 appropriat Medical e Branch accessorie s. Nebulizer 2021-0 Yes [id number] Provide [facility] Accessories 3-04 nebulizer ity of Kit 00:00: kit and [place] 00 appropriat Medical e Branch accessorie s. Nebulizer 2021-0 Yes [id number] Provide [facility] Accessories 3-04 nebulizer ity of Kit 00:00: kit and [place] 00 appropriat Medical e Branch accessorie s. Nebulizer 2021-0 Yes [id number] Provide [facility] Accessories 3-04 nebulizer ity of Kit 00:00: kit and [place] 00 appropriat Medical e Branch accessorie s. Nebulizer 2021-0 Yes [id number] Provide [facility] Accessories 3-04 nebulizer ity of Kit 00:00: kit and 00 appropriat Medical e Branch accessorie s. Nebulizer 2021-0 Yes [id number] Provide [facility] Accessories 3-04 nebulizer ity of Kit 00:00: kit and [place] 00 appropriat Medical e Branch accessorie s. Nebulizer 2021-0 Yes [id number] Provide [facility] Accessories 3-04 nebulizer ity of Kit 00:00: kit and 00 appropriat Medical e Branch accessorie s. Nebulizer 2021-0 Yes [id number] Provide [facility] Accessories 3-04 nebulizer ity of Kit 00:00: kit and appropriat Medical e Branch accessorie s. Nebulizer 2021-0 Yes [id number] Provide [facility] Accessories 3-04 nebulizer ity of Kit 00:00: kit and 00 appropriat Medical e Branch accessorie s. Nebulizer 2021-0 Yes [id number] Provide [facility] Accessories 3-04 nebulizer ity of Kit 00:00: kit and appropriat Medical e Branch accessorie s. Nebulizer 2021-0 Yes [id number] Provide [facility] Accessories 3-04 nebulizer ity of Kit 00:00: kit and appropriat Medical e Branch accessorie s. Nebulizer 2021-0 Yes [id number] Provide [facility] Accessories 3-04 nebulizer ity of Kit 00:00: kit and appropriat Medical e Branch accessorie s. Nebulizer 2021-0 Yes [id number] Provide [facility] Accessories 3-04 nebulizer ity of Kit 00:00: kit and appropriat Medical e Branch accessorie s. Nebulizer 2021-0 Yes [id number] Provide [facility] Accessories 3-04 nebulizer ity of Kit 00:00: kit and appropriat Medical e Branch accessorie s. Nebulizer 2021-0 Yes [id number] Provide [facility] Accessories 3-04 nebulizer ity of Kit 00:00: kit and [place] 00 appropriat Medical e Branch accessorie s. Nebulizer 0 Yes [id number] Provide [facility] Accessories 3-04 nebulizer ity of Kit 00:00: kit and [place] 00 appropriat Medical e Branch accessorie s. Nebulizer 2021-0 Yes [id number] Provide [facility] Accessories 3-04 nebulizer ity of Kit 00:00: kit and [place] 00 appropriat Medical e Branch accessorie s. Nebulizer 2021-0 Yes [id number] Provide [facility] Accessories 3-04 nebulizer ity of Kit 00:00: kit and [place] 00 appropriat Medical e Branch accessorie s. Nebulizer 2021-0 Yes [id number] Provide [facility] Accessories 3-04 nebulizer ity of Kit 00:00: kit and 00 appropriat Medical e Branch accessorie s. Nebulizer 2021-0 Yes [id number] Provide [facility] Accessories 3-04 nebulizer ity of Kit 00:00: kit and 00 appropriat Medical e Branch accessorie s. Nebulizer 2021-0 Yes [id number] Provide [facility] Accessories 3-04 nebulizer ity of Kit 00:00: kit and [place] 00 appropriat Medical e Branch accessorie s. Nebulizer 2021-0 Yes [id number] Provide [facility] Accessories 3-04 nebulizer ity of Kit 00:00: kit and 00 appropriat Medical e Branch accessorie s. Nebulizer 2021-0 Yes [id number] Provide [facility] Accessories 3-04 nebulizer ity of Kit 00:00: kit and 00 appropriat Medical e Branch accessorie s. Nebulizer 2021-0 Yes [id number] Provide [facility] Accessories 3-04 nebulizer ity of Kit 00:00: kit and [place] appropriat Medical e Branch accessorie s. Nebulizer 2021-0 Yes [id number] Provide [facility] Accessories 3-04 nebulizer ity of Kit 00:00: kit and appropriat Medical e Branch accessorie s. Nebulizer 2021-0 Yes [id number] Provide [facility] Accessories 3-04 nebulizer ity of Kit 00:00: kit and [place] 00 appropriat Medical e Branch accessorie s. Nebulizer 2021-0 Yes [id number] Provide [facility] Accessories 3-04 nebulizer ity of Kit 00:00: kit and appropriat Medical e Branch accessorie s. Nebulizer 0 Yes [id number] Provide [facility] Accessories 3-04 nebulizer ity of Kit 00:00: kit and [place] 00 appropriat Medical e Branch accessorie s. Nebulizer 0 Yes [id number] Provide [facility] Accessories 3-04 nebulizer ity of Kit 00:00: kit and [place] 00 appropriat Medical e Branch accessorie s. Nebulizer 2021-0 Yes [id number] Provide [facility] Accessories 3-04 nebulizer ity of Kit 00:00: kit and [place] 00 appropriat Medical e Branch accessorie s. Nebulizer 0 Yes [id number] Provide [facility] Accessories 3-04 nebulizer ity of Kit 00:00: kit and [place] 00 appropriat Medical e Branch accessorie s. Nebulizer 2021-0 Yes [id number] Provide [facility] Accessories 3-04 nebulizer ity of Kit 00:00: kit and [place] 00 appropriat Medical e Branch accessorie s. Nebulizer 2021-0 Yes [id number] Provide [facility] Accessories 3-04 nebulizer ity of Kit 00:00: kit and [place] 00 appropriat Medical e Branch accessorie s. Nebulizer 0 Yes [id number] Provide [facility] Accessories 3-04 nebulizer ity of Kit 00:00: kit and [place] 00 appropriat Medical e Branch accessorie s. Nebulizer 0 Yes [id number] Provide [facility] Accessories 3-04 nebulizer ity of Kit 00:00: kit and [place] 00 appropriat Medical e Branch accessorie s. Nebulizer 2021-0 Yes [id number] Provide [facility] Accessories 3-04 nebulizer ity of Kit 00:00: kit and [place] 00 appropriat Medical e Branch accessorie s. Nebulizer 2021-0 Yes [id number] Provide [facility] Accessories 3-04 nebulizer ity of Kit 00:00: kit and [place] 00 appropriat Medical e Branch accessorie s. Nebulizer 2021-0 Yes [id number] Provide [facility] Accessories 3-04 nebulizer ity of Kit 00:00: kit and [place] 00 appropriat Medical e Branch accessorie s. Nebulizer 2021-0 Yes [id number] Provide [facility] Accessories 3-04 nebulizer ity of Kit 00:00: kit and [place] 00 appropriat Medical e Branch accessorie s. Nebulizer 2021-0 Yes [id number] Provide [facility] Accessories 3-04 nebulizer ity of Kit 00:00: kit and 00 appropriat Medical e Branch accessorie s. Nebulizer 2021-0 Yes [id number] Provide [facility] Accessories 3-04 nebulizer ity of Kit 00:00: kit and [place] 00 appropriat Medical e Branch accessorie s. Nebulizer 2021-0 Yes [id number] Provide [facility] Accessories 3-04 nebulizer ity of Kit 00:00: kit and 00 appropriat Medical e Branch accessorie s. Nebulizer 2021-0 Yes [id number] Provide [facility] Accessories 3-04 nebulizer ity of Kit 00:00: kit and 00 appropriat Medical e Branch accessorie s. Nebulizer 2021-0 Yes [id number] Provide [facility] Accessories 3-04 nebulizer ity of Kit 00:00: kit and 00 appropriat Medical e Branch accessorie s. Nebulizer 2021-0 Yes [id number] Provide [facility] Accessories 3-04 nebulizer ity of Kit 00:00: kit and 00 appropriat Medical e Branch accessorie s. Nebulizer 2021-0 Yes [id number] Provide [facility] Accessories 3-04 nebulizer ity of Kit 00:00: kit and 00 appropriat Medical e Branch accessorie s. Nebulizer 2021-0 Yes [id number] Provide [facility] Accessories 3-04 nebulizer ity of Kit 00:00: kit and 00 appropriat Medical e Branch accessorie s. Nebulizer 2021-0 Yes [id number] Provide [facility] Accessories 3-04 nebulizer ity of Kit 00:00: kit and 00 appropriat Medical e Branch accessorie s. ipratropium 2020-03 Yes [id number] .5mg Inhale 2.5 [facility] 0.02 % 2-03 mL every 4 ity of nebulizer 00:00: (four) [place] solution 00 hours as Medical needed for Branch Wheezing or Shortness of Breath. ipratropium 2020-03 Yes [id number] .5mg Inhale 2.5 [facility] 0.02 % 2-03 mL every 4 ity of nebulizer 00:00: (four) [place] solution 00 hours as Medical needed for Branch Wheezing or Shortness of Breath. ipratropium 2020-03 Yes [id number] .5mg Inhale 2.5 [facility] 0.02 % 2-03 mL every 4 ity of nebulizer 00:00: (four) [place] solution 00 hours as Medical needed for Branch Wheezing or Shortness of Breath. ipratropium 2020-1 Yes [id number] .5mg Inhale 2.5 [facility] 0.02 % 2-03 mL every 4 ity of nebulizer 00:00: (four) [place] solution 00 hours as Medical needed for Branch Wheezing or Shortness of Breath. ipratropium 2020- Yes [id number] .5mg Inhale 2.5 [facility] 0.02 % 2-03 mL every 4 ity of nebulizer 00:00: (four) [place] solution 00 hours as Medical needed for Branch Wheezing or Shortness of Breath. ipratropium 2020- Yes [id number] .5mg Inhale 2.5 [facility] 0.02 % 2-03 mL every 4 ity of nebulizer 00:00: (four) [place] solution 00 hours as Medical needed for Branch Wheezing or Shortness of Breath. ipratropium 2020-1 Yes [id number] .5mg Inhale 2.5 [facility] 0.02 % 2-03 mL every 4 ity of nebulizer 00:00: (four) [place] solution 00 hours as Medical needed for Branch Wheezing or Shortness of Breath. ipratropium 2020-1 Yes [id number] .5mg Inhale 2.5 [facility] 0.02 % 2-03 mL every 4 ity of nebulizer 00:00: (four) [place] solution 00 hours as Medical needed for Branch Wheezing or Shortness of Breath. ipratropium 2020-1 Yes [id number] .5mg Inhale 2.5 [facility] 0.02 % 2-03 mL every 4 ity of nebulizer 00:00: (four) [place] solution 00 hours as Medical needed for Branch Wheezing or Shortness of Breath. ipratropium 2020-1 Yes [id number] .5mg Inhale 2.5 [facility] 0.02 % 2-03 mL every 4 ity of nebulizer 00:00: (four) [place] solution 00 hours as Medical needed for Branch Wheezing or Shortness of Breath. ipratropium 2020-1 Yes [id number] .5mg Inhale 2.5 [facility] 0.02 % 2-03 mL every 4 ity of nebulizer 00:00: (four) [place] solution 00 hours as Medical needed for Branch Wheezing or Shortness of Breath. ipratropium 2020-03 Yes [id number] .5mg Inhale 2.5 [facility] 0.02 % 2-03 mL every 4 ity of nebulizer 00:00: (four) [place] solution 00 hours as Medical needed for Branch Wheezing or Shortness of Breath. ipratropium 2020-03 Yes [id number] .5mg Inhale 2.5 [facility] 0.02 % 2-03 mL every 4 ity of nebulizer 00:00: (four) [place] solution 00 hours as Medical needed for Branch Wheezing or Shortness of Breath. ipratropium 2020-03 Yes [id number] .5mg Inhale 2.5 [facility] 0.02 % 2-03 mL every 4 ity of nebulizer 00:00: (four) [place] solution 00 hours as Medical needed for Branch Wheezing or Shortness of Breath. ipratropium 2020-03- No [id number] .5mg Inhale 2.5 [facility] 0.02 % 2-03 09-29 mL every 4 ity of nebulizer 00:00: 00:00 (four) [place] solution 00 :00 hours as Medical needed for Branch Wheezing or Shortness of Breath. ipratropium 2020-03- No [id number] .5mg Inhale 2.5 [facility] 0.02 % 2-03 09-29 mL every 4 ity of nebulizer 00:00: 00:00 (four) [place] solution 00 :00 hours as Medical needed for Branch Wheezing or Shortness of Breath. ipratropium 2020-03- No [id number] .5mg Inhale 2.5 [facility] 0.02 % 2-03 09-29 mL every 4 ity of nebulizer 00:00: 00:00 (four) [place] solution 00 :00 hours as Medical needed for Branch Wheezing or Shortness of Breath. insulin 2018-03 2020- No [id number] TAKE 10 Un renetta detemir 227 01-10 UNITS IN ity of U-100 00:00: 00:00 THE [place] (LEVEMIR 00 :00 MORNING Medical U-100 AND THEN Branch INSULIN) TAKE 10 100 unit/mL UNITS AT injection NIGHT fluticasone 2018-03 2020- No [id number] 1{puff} Inhale 1 [facility] furoate-fitz 2-20 02-18 Puff ity of anterol 00:00: 00:00 daily. [place] (BREO 00 :00 Medical ELLIPTA) Branch 100-25 mcg/dose DsDv predniSONE 2018-03 2020- No [id number] 10mg Take 0.5 [facility] 20 mg 2-20 -17 tablets by ity of tablet 00:00: 00:00 mouth [place] 00 :00 daily. Medical Branch LEVOTHYROXI 2018-03- No [id number] 137ug TAKE 1 Univers NE 137 mcg 2-20 05-18 TABLET BY ity of tablet 00:00: 00:00 MOUTH [place] 00 :00 EVERY Medical MORNING Branch FUROSEMIDE 2018-03 2020- No [id number] 40mg TAKE 1 [facility] 40 mg -20 05-17 TABLET BY ity of tablet 00:00: 00:00 MOUTH [place] 00 :00 EVERY Medical MORNING Branch Insulin 2018-03- No [id number] 5U inject 5 U nivers Lispro, 2-16 01-10 Units ity of Human, 100 00:00: 00:00 [place] unit/mL 00 :00 skin 3 Medical cartridge (three) Branch times daily with meals for 30 days. Polyethylen 2018-03 2020- No [id number] 17g Take 1 Univers e Glycol 2-15 -19 Packet by ity o f 3350 17 00:00: 00:00 mouth [place] gram powder 00 :00 daily. Medica l Branch Insulin 2018-03 2020- No [id number] Use as Un renetta Benedict, 2-14 10-20 directed ity of Disposable, 00:00: 00:00 Jas 32 gauge x 00 :00 Medical 5/16" Ndle Branch sodium 2018-03 Yes [id number] 4mL Inhale 4 Un renetta chloride 7% 1-22 mL 2 (two) it y of nebulizer 00:00: times [place] solution 00 daily. Medical [facility] sodium 2018-03 Yes [id number] 4mL Inhale 4 Un renetta chloride 7% 1-22 mL 2 (two) it y of nebulizer 00:00: times [place] solution 00 daily. Medical [facility] sodium 2018-03 Yes [id number] 4mL Inhale 4 Un renetta chloride 7% 1-22 mL 2 (two) it y of nebulizer 00:00: times [place] solution 00 daily. Medical [facility] sodium 2018-03 Yes [id number] 4mL Inhale 4 Un renetta chloride 7% 1-22 mL 2 (two) it y of nebulizer 00:00: times [place] solution 00 daily. Medical [facility] sodium 2019- Yes [id number] 4mL Inhale 4 Un renetta chloride 7% 1-22 mL 2 (two) it y of nebulizer 00:00: times [place] solution 00 daily. Medical [facility] sodium 2018- Yes [id number] 4mL Inhale 4 Un renetta chloride 7% 1-22 mL 2 (two) it y of nebulizer 00:00: times [place] solution 00 daily. Medical [facility] sodium 2018- Yes [id number] 4mL Inhale 4 Un renetta chloride 7% 1-22 mL 2 (two) it y of nebulizer 00:00: times [place] solution 00 daily. Medical [facility] sodium 2018- Yes [id number] 4mL Inhale 4 Un renetta chloride 7% 1-22 mL 2 (two) it y of nebulizer 00:00: times [place] solution 00 daily. Medical [facility] sodium 2018- Yes [id number] 4mL Inhale 4 Un renetta chloride 7% 1-22 mL 2 (two) it y of nebulizer 00:00: times [place] solution 00 daily. Medical [facility] sodium 2018- Yes [id number] 4mL Inhale 4 Un renetta chloride 7% 1-22 mL 2 (two) it y of nebulizer 00:00: times [place] solution 00 daily. Medical [facility] sodium 2019- Yes [id number] 4mL Inhale 4 Un renetta chloride 7% 1-22 mL 2 (two) it y of nebulizer 00:00: times [place] solution 00 daily. Medical [facility] sodium 2018- Yes [id number] 4mL Inhale 4 Un renetta chloride 7% 1-22 mL 2 (two) it y of nebulizer 00:00: times [place] solution 00 daily. Medical [facility] sodium 2019- Yes [id number] 4mL Inhale 4 Un renetta chloride 7% 1-22 mL 2 (two) it y of nebulizer 00:00: times [place] solution 00 daily. Medical [facility] sodium 2019- Yes [id number] 4mL Inhale 4 Un renetta chloride 7% 1-22 mL 2 (two) it y of nebulizer 00:00: times [place] solution 00 daily. Medical [facility] sodium 2018- Yes [id number] 4mL Inhale 4 Un renetta chloride 7% 1-22 mL 2 (two) it y of nebulizer 00:00: times [place] solution 00 daily. Medical [facility] sodium 2018-03 Yes [id number] 4mL Inhale 4 Un renetta chloride 7% 1-22 mL 2 (two) it y of nebulizer 00:00: times [place] solution 00 daily. Medical [facility] sodium 2018-03 Yes [id number] 4mL Inhale 4 Un renetta chloride 7% 1-22 mL 2 (two) it y of nebulizer 00:00: times [place] solution 00 daily. Medical [facility] sodium 2018-03 Yes [id number] 4mL Inhale 4 Un renetta chloride 7% 1-22 mL 2 (two) it y of nebulizer 00:00: times [place] solution 00 daily. Medical [facility] sodium 2018-03 Yes [id number] 4mL Inhale 4 Un renetta chloride 7% 1-22 mL 2 (two) it y of nebulizer 00:00: times [place] solution 00 daily. Medical [facility] sodium 2018-03 Yes [id number] 4mL Inhale 4 Un renetta chloride 7% 1-22 mL 2 (two) it y of nebulizer 00:00: times [place] solution 00 daily. Medical [facility] sodium 2018-03- No [id number] 4mL Inhale 4 U nivers chloride 7% 1-22 10-05 mL 2 (two) i ty of nebulizer 00:00: 00:00 times [place] solution 00 :00 daily. Medical Branch sodium 2018-03- No [id number] 4mL Inhale 4 U nivers chloride 7% 1-22 10-05 mL 2 (two) i ty of nebulizer 00:00: 00:00 times [place] solution 00 :00 daily. Medical Branch sodium 2018-03- No [id number] 4mL Inhale 4 U nivers chloride 7% 1-22 10-05 mL 2 (two) i ty of nebulizer 00:00: 00:00 times [place] solution 00 :00 daily. Medical Branch sodium 2018-03- No [id number] 4mL Inhale 4 U nivers chloride 7% 1-22 10-05 mL 2 (two) i ty of nebulizer 00:00: 00:00 times [place] solution 00 :00 daily. Medical Branch albuterol 2018-03- No [id number] 2.5mg Inhale 3 [facility] 2.5 mg /3 03-25 12-03 mL every 4 ity of mL (0.083 00:00: 00:00 (four) [place] %) 00 :00 hours as Medical nebulizer needed for Bran ch solution Wheezing or Shortness of Breath. fluticasone 2018-03 2020- No [id number] 1{spray Use 1 [facility] propionate 03-25 } [place] in ity of 50 00:00: 00:00 each [place] mcg/actuati 00 :00 nostril 2 Med ical on nasal (two) Branch spray times daily. cetirizine 2018-03 2020- No [id number] 10mg Take 1 [facility] 10 mg 03-25 tablet by ity of tablet 00:00: 00:00 mouth [place] 00 :00 daily. Medical Branch ipratropium 2018-03 2020- No [id number] .5mg Inhale 2.5 [facility] 0.02 % 03-25 06-11 mL every 4 ity of nebulizer 00:00: 00:00 (four) [place] solution 00 :00 hours as Medical needed for Branch Wheezing or Shortness of Breath. Docusate 2018-03 No Notes: [facility] 1-16 (Same as: l 15:00: Colace) [place] 00 (Do Not Crush) Docusate 2018-03 No Notes: [facility] 1-16 (Same as: l 15:00: Colace) [place] 00 (Do Not Crush) Docusate 2018-03 No [...] sodium, 1-16 porcine l porcine 06:00: heparin [place] 2500 UNT/ML 00 Injectable Solution heparin 2018-03 No Notes: [facility] sodium, 1-16 porcine l porcine 06:00: heparin [place] 2500 UNT/ML 00 Injectable Solution heparin 2018-03 No Notes: Memoria sodium, 1-16 porcine l porcine 06:00: heparin [place] 2500 UNT/ML 00 Injectable Solution heparin 2018-03 No Notes: [facility] sodium, 1-16 porcine l porcine 06:00: heparin [place] 2500 UNT/ML 00 Injectable Solution heparin 2018-03 No Notes: [facility] sodium, 1-16 porcine l porcine 06:00: heparin [place] 2500 UNT/ML 00 Injectable Solution methylPREDN 2018-03 No Notes: Randell dilcia ISolone 1-16 (Same l SODium 03:00: as:Solu-ME Jeimy nn SUCCinate 00 DROL, A-Methapre d) sennosides, 2018-03 No Notes: Randell dilcia CORRECTION 1-16 (Same as: l 03:00: Senokot) [place] 00 Azithromyci 2018-03 No Notes: [place] dilcia n 1-16 (Same As: l 03:00: Zithromax [place] 00 IV) methylPREDN 2018-03 No Notes: [place] dilcia ISolone 1-16 (Same l SODium 03:00: as:Solu-ME Jeimy nn SUCCinate 00 DROL, A-Methapre d) sennosides, 2018-03 No Notes: Randell dilcia CORRECTION 1-16 (Same as: l 03:00: Senokot) [place] 00 Azithromyci 2018-03 No Notes: [place]ell dilcia n 1-16 (Same As: l 03:00: Zithromax [place] 00 IV) methylPREDN 2018-03 No Notes: [place]ell dilcia ISolone 1-16 (Same l SODium 03:00: as:Solu-ME [place] nn SUCCinate 00 DROL, A-Methapre d) sennosides, 2018-03 No Notes: Randell dilcia CORRECTION 1-16 (Same as: l 03:00: Senokot) [place] 00 Azithromyci 2018-03 No Notes: Randell dilcia n 1-16 (Same As: l 03:00: Zithromax [place] 00 IV) methylPREDN 2018-03 No Notes: Randell dilcia ISolone 1-16 (Same l SODium 03:00: as:Solu-ME [place] nn SUCCinate 00 DROL, A-Methapre d) sennosides, 2018-03 No Notes: Randell dilcia CORRECTION 1-16 (Same as: l 03:00: Senokot) [place] 00 Azithromyci 2018-03 No Notes: Randell dilcia n 1-16 (Same As: l 03:00: Zithromax [place] 00 IV) methylPREDN 2018-03 No Notes: Randell dilcia ISolone 1-16 (Same l SODium 03:00: as:Solu-ME [place] nn SUCCinate 00 DROL, A-Methapre d) sennosides, 2018-03 No Notes: Randell dilcia CORRECTION 1-16 (Same as: l 03:00: Senokot) [place] Azithromyci 2018-03 No Notes: Randell dilcia n 1-16 (Same As: l 03:00: Zithromax [place] 00 IV) Budesonide 2018-03 No Notes: Memor ia 1-16 (Same As: l 02:39: Pulmicort) [place] Budesonide 2018-03 No Notes: [facility] ia 1-16 (Same As: l 02:39: Pulmicort) [place] Budesonide 2018-03 No Notes: [facility] ia 1-16 (Same As: l 02:39: Pulmicort) [place] Budesonide 2018-03 No Notes: [facility] ia 1-16 (Same As: l 02:39: Pulmicort) [place] Budesonide 2018-03 No Notes: Memor ia 1-16 [...] tab, PO, l Tablet 01:31: Daily, 0 [place] [Lasix] 00 Refill(s) amLODIPine 2018-03 Yes 5 [...] tab, PO, l Tablet 01:31: Daily, 0 [place] [Lasix] 00 Refill(s) amLODIPine 2018-03 Yes 5 mg = 1 Mem oria 5 mg oral 1-16 tab, PO, l tablet 01:31: Daily, 0 [place] 00 Refill(s) Albuterol 2018-03 Yes 2.5 mg [...] tab, PO, l Tablet 01:31: Daily, 0 [place] [Lasix] 00 Refill(s) amLODIPine 2018-03 Yes 5 [...] No 12.5 gm, Memor ia 50% Syringe -16 25 mL, l 01:03: Route: IVP, Drug Form: INJ, Dosing Weight 93.636, kg, PRN, PRN Blood Glucose Results, Start date: 01/16/19 19:03:00 STRATEGIC PLANNING MANAGER, Duration: 30 day, Stop date: 02/15/19 19:02:00 STRATEGIC PLANNING MANAGER, 0 Glucagon 2018-03 No 1 mg, Memoria 1-16 Route: IM, l 01:03: Drug form: PDR/INJ, PRN, Dosing Weight 93.636, kg, PRN Blood Glucose Results, Start date: 01/16/19 19:03:00 STRATEGIC PLANNING MANAGER, Duration: 30 day, Stop date: 02/15/19 19:02:00 STRATEGIC PLANNING MANAGER, 0 Insulin 2018- No Notes: [facility] Lispro 1-16 (Same as: l 01:03: Humalog) [place] 00 Roll in palms of hands gently; Do not shake vigorously . WASTE: F/P - Black; E - Municipal Trash Bin Stable for 28 days at room temperatur e. Expires in days from ____Date Dextrose 2018- No 12.5 gm, Memor ia 50% Syringe 1-16 25 mL, l 01:03: Route: [place] 00 IVP, Drug Form: INJ, Dosing Weight 93.636, kg, PRN, PRN Blood Glucose Results, Start date: 01/16/19 19:03:00 STRATEGIC PLANNING MANAGER, Duration: 30 day, Stop date: 02/15/19 19:02:00 STRATEGIC PLANNING MANAGER, 0 Glucagon 2018-03 No 1 mg, Memoria 1-16 Route: IM, l 01:03: Drug form: [place] 00 PDR/INJ, PRN, Dosing Weight 93.636, kg, PRN Blood Glucose Results, Start date: 01/16/19 19:03:00 STRATEGIC PLANNING MANAGER, Duration: 30 day, Stop date: 02/15/19 19:02:00 STRATEGIC PLANNING MANAGER, 0 Insulin 2018-03 No Notes: [facility] Lispro 1-16 (Same as: l 01:03: Humalog) [place] 00 Roll in palms of hands gently; Do not shake vigorously . WASTE: F/P - Black; E - Municipal Trash Bin Stable for 28 days at room temperatur e. Expires in days from ____Date Dextrose 2018-03 No 12.5 gm, Mem[facility] ia 50% Syringe 1-16 25 mL, l 01:03: Route: [place] 00 IVP, Drug Form: INJ, Dosing Weight 93.636, kg, PRN, PRN Blood Glucose Results, Start date: 01/16/19 19:03:00 STRATEGIC PLANNING MANAGER, Duration: 30 day, Stop date: 02/15/19 19:02:00 STRATEGIC PLANNING MANAGER, 0 Glucagon 2019- No 1 mg, [facility]oria 1-16 Route: IM, l 01:03: Drug form: [place] 00 PDR/INJ, PRN, Dosing Weight 93.636, kg, PRN Blood Glucose Results, Start date: 01/16/19 19:03:00 STRATEGIC PLANNING MANAGER, Duration: 30 day, Stop date: 02/15/19 19:02:00 STRATEGIC PLANNING MANAGER, 0 Insulin 2019- No Notes: [facility] Lispro 1-16 (Same as: l 01:03: Humalog) [place] 00 Roll in palms of hands gently; Do not shake vigorously . WASTE: F/P - Black; E - Municipal Trash Bin Stable for 28 days at room temperatur e. Expires in days from ____Date Dextrose 2018-03 No 12.5 gm, Memor ia 50% Syringe 1-16 25 mL, l 01:03: Route: [place] 00 IVP, Drug Form: INJ, Dosing Weight 93.636, kg, PRN, PRN Blood Glucose Results, Start date: 01/16/19 19:03:00 STRATEGIC PLANNING MANAGER, Duration: 30 day, Stop date: 02/15/19 19:02:00 STRATEGIC PLANNING MANAGER, 0 Glucagon 2018- No 1 mg, [facility]oria 1-16 Route: IM, l 01:03: Drug form: [place] 00 PDR/INJ, PRN, Dosing Weight 93.636, kg, PRN Blood Glucose Results, Start date: 01/16/19 19:03:00 STRATEGIC PLANNING MANAGER, Duration: 30 day, Stop date: 02/15/19 19:02:00 STRATEGIC PLANNING MANAGER, 0 Insulin 2019- No Notes: [facility] Lispro 1-16 (Same as: l 01:03: Humalog) [place] 00 Roll in palms of hands gently; Do not shake vigorously . WASTE: F/P - Black; E - Municipal Trash Bin Stable for 28 days at room temperatur e. Expires in days from ____Date Dextrose 2018-03 No 12.5 gm, [facility] 50% Syringe 1-16 25 mL, l 01:03: Route: [place] 00 IVP, Drug Form: INJ, Dosing Weight 93.636, kg, PRN, PRN Blood Glucose Results, Start date: 01/16/19 19:03:00 STRATEGIC PLANNING MANAGER, Duration: 30 day, Stop date: 02/15/19 19:02:00 STRATEGIC PLANNING MANAGER, 0 Glucagon 2018-03 No 1 mg, [facility] 1-16 Route: IM, l 01:03: Drug form: [place] 00 PDR/INJ, PRN, Dosing Weight 93.636, kg, PRN Blood Glucose Results, Start date: 01/16/19 19:03:00 STRATEGIC PLANNING MANAGER, Duration: 30 day, Stop date: 02/15/19 19:02:00 STRATEGIC PLANNING MANAGER, 0 Insulin 2018-03 No Notes: [facility] Lispro 1-16 (Same as: l :03: Humalog) [place] 00 Roll in palms of hands gently; Do not shake vigorously . WASTE: F/P - Black; E - Municipal Trash Bin Stable for 28 days at room temperatur e. Expires in days from ____Date Hydralazine 2018-03 No Notes: Randell dilcia 1-16 (Same as: l 01:01: Apresoline [place] ) Push over 5 minutes Hydralazine 2018-03 No Notes: [facility]ell dilcia 1-16 (Same as: l 01:01: Apresoline [place] 00 ) Push over 5 minutes Hydralazine 2018-03 No Notes: [place] dilcia 1-16 (Same as: l 01:01: Apresoline [place] ) Push over 5 minutes Hydralazine 2018-03 No Notes: [facility] dilcia 1-16 (Same as: l 01:01: Apresoline [place] ) Push over 5 minutes Hydralazine 2018-03 No Notes: [facility]ell dilcia 1-16 (Same as: l 01:01: Apresoline [place] ) Push over 5 minutes Albuterol 2018-03 No Notes: Memori a 0.833 MG/ML 1-16 (Same as: :00: Duoneb) [place] Ipratropium 00 [place] 0.167 MG/ML Inhalant Solution Albuterol 2018-03 No Notes: Memori a 0.833 MG/ML 1-16 (Same as: :00: Duoneb) [place] Ipratropium 00 [place] 0.167 MG/ML Inhalant Solution Albuterol 2018-03 No Notes: Memori a 0.833 MG/ML 1-16 (Same as: :: Duoneb) [place] Ipratropium 00 [place] 0.167 MG/ML Inhalant Solution Albuterol 2018-03 No Notes: Memori a 0.833 MG/ML 1-16 (Same as: :: Duoneb) [place] Ipratropium 00 [place] 0.167 MG/ML Inhalant Solution Albuterol 2018-03 No Notes: Memori a 0.833 MG/ML 1-16 (Same as: :: Duoneb) [place] Ipratropium 00 [place] 0.167 MG/ML Inhalant Solution Dextrose 2018-03 No 12.5 gm, Memor ia 50% Syringe 1-16 25 mL, l 00:56: Route: [place] 00 IVP, Drug Form: INJ, Dosing Weight 93.636, kg, PRN, PRN Blood Glucose Results, Start date: 01/16/19 18:56:00 STRATEGIC PLANNING MANAGER, Duration: 30 day, Stop date: 02/15/19 18:55:00 STRATEGIC PLANNING MANAGER, 0 Glucagon 2018-03 No 1 mg, Memoria 03-19 Route: IM, l 00:56: Drug form: [place] 00 PDR/INJ, PRN, Dosing Weight 93.636, kg, PRN Blood Glucose Results, Start date: 01/16/19 18:56:00 STRATEGIC PLANNING MANAGER, Duration: 30 day, Stop date: 02/15/19 18:55:00 STRATEGIC PLANNING MANAGER, 0 Acetaminoph 2018-03 No Notes: Do M emoria en 03-19 not exceed l 00:56: 4 gm/day. [place] 00 (Same as: Tylenol) Dextrose 2018-03 No 12.5 gm, Memor ia 50% Syringe 1-16 25 mL, l 00:56: Route: [place] 00 IVP, Drug Form: INJ, Dosing Weight 93.636, kg, PRN, PRN Blood Glucose Results, Start date: 01/16/19 18:56:00 STRATEGIC PLANNING MANAGER, Duration: 30 day, Stop date: 02/15/19 18:55:00 STRATEGIC PLANNING MANAGER, 0 Glucagon 2018-03 No 1 mg, [facility] 1-16 Route: IM, l 00:56: Drug form: [place] 00 PDR/INJ, PRN, Dosing Weight 93.636, kg, PRN Blood Glucose Results, Start date: 01/16/19 18:56:00 STRATEGIC PLANNING MANAGER, Duration: 30 day, Stop date: 02/15/19 18:55:00 STRATEGIC PLANNING MANAGER, 0 Acetaminoph 2018-03 No Notes: Do M emoria en 03-19 not exceed l 00:56: 4 gm/day. [place] 00 (Same as: Tylenol) Dextrose 2018-03 No 12.5 gm, Memor ia 50% Syringe 1-16 25 mL, l 00:56: Route: [place] 00 IVP, Drug Form: INJ, Dosing Weight 93.636, kg, PRN, PRN Blood Glucose Results, Start date: 01/16/19 18:56:00 STRATEGIC PLANNING MANAGER, Duration: 30 day, Stop date: 02/15/19 18:55:00 STRATEGIC PLANNING MANAGER, 0 Glucagon 2018-03 No 1 mg, Memoria 116 Route: IM, l 00:56: Drug form: [place] 00 PDR/INJ, PRN, Dosing Weight 93.636, kg, PRN Blood Glucose Results, Start date: 01/16/19 18:56:00 STRATEGIC PLANNING MANAGER, Duration: 30 day, Stop date: 02/15/19 18:55:00 STRATEGIC PLANNING MANAGER, 0 Acetaminoph 2018-03 No Notes: Do Annika emoria en 03-19 not exceed l 00:56: 4 gm/day. [place] (Same as: Tylenol) Dextrose 2018-03 No 12.5 gm, Mem[facility] ia 50% Syringe 1-16 25 mL, l 00:56: Route: [place] 00 IVP, Drug Form: INJ, Dosing Weight 93.636, kg, PRN, PRN Blood Glucose Results, Start date: 01/16/19 18:56:00 STRATEGIC PLANNING MANAGER, Duration: 30 day, Stop date: 02/15/19 18:55:00 STRATEGIC PLANNING MANAGER, 0 Glucagon 2018-03 No 1 mg, [facility] 1-16 Route: IM, l 00:56: Drug form: [place] 00 PDR/INJ, PRN, Dosing Weight 93.636, kg, PRN Blood Glucose Results, Start date: 01/16/19 18:56:00 STRATEGIC PLANNING MANAGER, Duration: 30 day, Stop date: 02/15/19 18:55:00 STRATEGIC PLANNING MANAGER, 0 Acetaminoph 2018-03 No Notes: Do M emoria en 1-16 not exceed l 00:56: 4 gm/day. [place] 00 (Same as: Tylenol) Dextrose 2018-03 No 12.5 gm, Memor ia 50% Syringe 1-16 25 mL, l 00:56: Route: [place] 00 IVP, Drug Form: INJ, Dosing Weight 93.636, kg, PRN, PRN Blood Glucose Results, Start date: 01/16/19 18:56:00 STRATEGIC PLANNING MANAGER, Duration: 30 day, Stop date: 02/15/19 18:55:00 STRATEGIC PLANNING MANAGER, 0 Glucagon 2018-03 No 1 mg, [facility] 1-16 Route: IM, l 00:56: Drug form: [place] 00 PDR/INJ, PRN, Dosing Weight 93.636, kg, PRN Blood Glucose Results, Start date: 01/16/19 18:56:00 STRATEGIC PLANNING MANAGER, Duration: 30 day, Stop date: 02/15/19 18:55:00 STRATEGIC PLANNING MANAGER, 0 Acetaminoph 2018-03 No Notes: Do M emoria en 1-16 not exceed l 00:56: 4 gm/day. [place] 00 (Same as: Tylenol) Tramadol 2018-03 No [...] Acetaminoph 2018-03 No Notes: Max Memoria en -15 acetaminop l 22:54: hen 4000 [place] 00 mg/day (4 gm/day). (Same as: Tylenol Extra Strength) Acetaminoph 2018-03 No Notes: Max [facility]oria en 1-15 acetaminop l 22:54: hen 4000 [place] 00 mg/day (4 gm/day). (Same as: Tylenol [...] en 1-15 acetaminop l 22:54: hen 4000 [place] 00 mg/day (4 gm/day). (Same as: Tylenol Extra Strength) Albuterol 2018-03 No Notes: Memori a 0.833 MG/ML 1-15 (Same as: l / 21:21: Duoneb) [place] Ipratropium 00 [place] 0.167 MG/ML Inhalant Solution Prednisone 2018-03 No Notes: Memor ia 1-15 Take with l 21:21: food. [place] 00 Albuterol 2018-03 No Notes: Memori a 0.833 MG/ML 1-15 (Same as: l / 21:21: Duoneb) [place] Ipratropium 00 [place] 0.167 MG/ML Inhalant Solution Prednisone 2018-03 No Notes: Memor ia 1-15 Take with l 21:21: food. [place] Albuterol 2018-03 No Notes: Memori a 0.833 MG/ML 1-15 (Same as: l / 21:21: Duoneb) [place] Ipratropium 00 [place] 0.167 MG/ML Inhalant Solution Prednisone 2018-03 No Notes: Mem[facility] ia 1-15 Take with l 21:21: food. [place] 00 Albuterol 2018-03 No Notes: Mem[facility] a 0.833 MG/ML 1-15 (Same as: l / 21:21: Duoneb) [place] Ipratropium 00 [place] 0.167 MG/ML Inhalant Solution Prednisone 2018-03 No Notes: [facility] ia 1-15 Take with l 21:21: food. [place] 00 Albuterol 2018-03 No Notes: Mem[facility] a 0.833 MG/ML 1-15 (Same as: l / 21:21: Duoneb) [place] Ipratropium 00 [place] 0.167 MG/ML Inhalant Solution Prednisone 2018-03 No Notes: [facility] ia 1-15 Take with l 21:21: food. [place] 00 Saline 2018-03 No Notes: [facility] Flush 0.9% 1-15 (Same as: l 20:25: BD [place] 00 Posiflush) Saline 2018-03 No Notes: [facility] Flush 0.9% 1-15 (Same as: l 20:25: BD [place] 00 Posiflush) Saline 2018-03 No Notes: [facility] Flush 0.9% 1-15 (Same as: l 20:25: BD [place] 00 Posiflush) Saline 2018-03 No Notes: [facility] Flush 0.9% 1-15 (Same as: l 20:25: BD [place] 00 Posiflush) Saline 2018-03 No Notes: [facility] Flush 0.9% 1-15 (Same as: l 20:25: BD [place] 00 Posiflush) baclofen 10 2018-03 2020- No [id number] 10mg Take 1 [facility] mg tablet 03-15 tablet by ity of 00:00: 00:00 mouth 3 [place] 00 :00 (three) [facility] times [facility] daily. lisinopril 2018-03 2020- No [id number] 5mg Take 1 [facility] 5 mg tablet 03-30 tablet by it y of 00:00: 00:00 mouth [place] 00 :00 daily. [facility] allopurinol 2020- No [id number] 100mg Take 1 [facility] 100 mg 11-19 tablet by ity of tablet 00:00: 00:00 mouth [place] 00 :00 daily. [facility] atorvastati 2020- No [id number] 20mg Take 1 [facility] n 20 mg 08-01 tablet by ity of tablet 00:00: 00:00 mouth at [place] 00 :00 bedtime. [facility] amLODIPine 2020- No [id number] 5mg Take 1 [facility] (NORVASC) 5 08-01 tablet by it y of mg tablet 00:00: 00:00 mouth [place] 00 :00 daily. [facility] methocarbam 20190 2020- No [id number] 500mg Take 1 [facility] ol 500 mg 07-07 tablet by ity of tablet 00:00: 00:00 mouth 3 [place] 00 :00 (three) [facility] times [facility] daily as needed (muscle spasm/pain ). Lancets 2017- Yes [id number] Use as Uni vers Misc 0-04 directed ity of 00:00: [place] 00 [facility] Lancets 2017-1 Yes [id number] Use as Uni vers Misc 0-04 directed ity of 00:00: [place] 00 [facility] Lancets 2017- Yes [id number] Use as Uni vers Misc 0-04 directed ity of 00:00: [place] 00 [facility] Lancets 2017- Yes [id number] Use as Uni vers Misc 0-04 directed ity of 00:00: [place] 00 [facility] Lancets 2017- Yes [id number] Use as Uni vers Misc 0-04 directed ity of 00:00: [place] 00 [facility] Lancets 2017-1 Yes [id number] Use as Uni vers Misc 0-04 directed ity of 00:00: [place] 00 [facility] Lancets 2017- Yes [id number] Use as Uni vers Misc 0-04 directed ity of 00:00: [place] 00 [facility] Lancets 2017-1 Yes [id number] Use as Uni vers Misc 0-04 directed ity of 00:00: [place] 00 [facility] Lancets 2017-1 Yes [id number] Use as Uni vers Misc 0-04 directed ity of 00:00: [place] 00 [facility] Lancets 2017-1 Yes [id number] Use as Uni vers Misc 0-04 directed ity of 00:00: [place] 00 [facility] Lancets 2017-1 Yes [id number] Use as Uni vers Misc 0-04 directed ity of 00:00: [place] 00 [facility] Lancets 2017-1 Yes [id number] Use as Uni vers Misc 0-04 directed ity of 00:00: [place] 00 [facility] Lancets 2017- Yes [id number] Use as Uni vers Misc 0-04 directed ity of 00:00: [place] 00 [facility] Lancets 2017-1 Yes [id number] Use as Uni vers Misc 0-04 directed ity of 00:00: [place] 00 [facility] Lancets 2017-1 Yes [id number] Use as Uni vers Misc 0-04 directed ity of 00:00: [place] 00 [facility] Lancets 2017-1 Yes [id number] Use as Uni vers Misc 0-04 directed ity of 00:00: [place] [facility] Lancets 2017-1 Yes [id number] Use as Uni vers Misc 0-04 directed ity of 00:00: [place] 00 [facility] Lancets 2017-1 Yes [id number] Use as Uni vers Misc 0-04 directed ity of 00:00: [place] [facility] Lancets 2017-1 Yes [id number] Use as Uni vers Misc 0-04 directed ity of 00:00: [place] [facility] Lancets 2017-1 Yes [id number] Use as Uni vers Misc 0-04 directed ity of 00:00: [place] [facility] Lancets 2017-1 Yes [id number] Use as Uni vers Misc 0-04 directed ity of 00:00: [place] [facility] Lancets 2017-1 Yes [id number] Use as Uni vers Misc 0-04 directed ity of 00:00: [place] [facility] Lancets 2017-1 Yes [id number] Use as Uni vers Misc 0-04 directed ity of 00:00: [place] [facility] Lancets 2017-1 Yes [id number] Use as Uni vers Misc 0-04 directed ity of 00:00: [place] [facility] Lancets 2017-1 Yes [id number] Use as Uni vers Misc 0-04 directed ity of 00:00: [place] [facility] Lancets 2017-1 Yes [id number] Use as Uni vers Misc 0-04 directed ity of 00:00: [place] [facility] Lancets 2017-1 Yes [id number] Use as Uni vers Misc 0-04 directed ity of 00:00: [place] 00 [facility] Lancets 2017-1 Yes [id number] Use as Uni vers Misc 0-04 directed ity of 00:00: [place] 00 [facility] Lancets 2017-1 Yes [id number] Use as Uni vers Misc 0-04 directed ity of 00:00: [place] 00 [facility] Lancets 2017-1 Yes [id number] Use as Uni vers Misc 0-04 directed ity of 00:00: [place] 00 [facility] Lancets 2017-1 Yes [id number] Use as Uni vers Misc 0-04 directed ity of 00:00: [place] 00 [facility] Lancets 2017-1 Yes [id number] Use as Uni vers Misc 0-04 directed ity of 00:00: [place] [facility] Lancets 2017-1 Yes [id number] Use as Uni vers Misc 0-04 directed ity of 00:00: [place] [facility] Lancets 2017-1 Yes [id number] Use as Uni vers Misc 0-04 directed ity of 00:00: [place] [facility] Lancets 2017-1 Yes [id number] Use as Uni vers Misc 0-04 directed ity of 00:00: [place] [facility] Lancets 2017-1 Yes [id number] Use as Uni vers Misc 0-04 directed ity of 00:00: [place] [facility] Lancets 2017-1 Yes [id number] Use as Uni vers Misc 0-04 directed ity of 00:00: [place] [facility] Lancets 2017-1 Yes [id number] Use as Uni vers Misc 0-04 directed ity of 00:00: [place] [facility] Lancets 2017-1 Yes [id number] Use as Uni vers Misc 0-04 directed ity of 00:00: [place] [facility] Lancets 2017-1 Yes [id number] Use as Uni vers Misc 0-04 directed ity of 00:00: [place] [facility] Lancets 2017-1 Yes [id number] Use as Uni vers Misc 0-04 directed ity of 00:00: [place] [facility] Lancets 2017-1 Yes [id number] Use as Uni vers Misc 0-04 directed ity of 00:00: [place] [facility] Lancets 2017-1 Yes [id number] Use as Uni vers Misc 0-04 directed ity of 00:00: [place] [facility] Lancets 2017-1 Yes [id number] Use as Uni vers Misc 0-04 directed ity of 00:00: [place] [facility] Lancets 2017-1 Yes [id number] Use as Uni vers Misc 0-04 directed ity of 00:00: [place] [facility] Lancets 2017-1 Yes [id number] Use as Uni vers Misc 0-04 directed ity of 00:00: [place] 00 [facility] Lancets 2017-1 Yes [id number] Use as Uni vers Misc 0-04 directed ity of 00:00: [place] [facility] Lancets 2017-1 Yes [id number] Use as Uni vers Misc 0-04 directed ity of 00:00: [place] [facility] Lancets 2017-1 Yes [id number] Use as Uni vers Misc 0-04 directed ity of 00:00: [place] [facility] Lancets 2017-1 Yes [id number] Use as Uni vers Misc 0-04 directed ity of 00:00: [place] [facility] Lancets 2017-1 Yes [id number] Use as Uni vers Misc 0-04 directed ity of 00:00: [place] [facility] Lancets 2017-1 Yes [id number] Use as Uni vers Misc 0-04 directed ity of 00:00: [place] [facility] Lancets 2017-1 Yes [id number] Use as Uni vers Misc 0-04 directed ity of 00:00: [place] [facility] Lancets 2017-1 Yes [id number] Use as Uni vers Misc 0-04 directed ity of 00:00: [place] [facility] Lancets 2017-1 Yes [id number] Use as Uni vers Misc 0-04 directed ity of 00:00: [place] [facility] Lancets 2017-1 Yes [id number] Use as Uni vers Misc 0-04 directed ity of 00:00: [place] [facility] Lancets 2017-1 Yes [id number] Use as Uni vers Misc 0-04 directed ity of 00:00: [place] [facility] Lancets 2017-1 Yes [id number] Use as Uni vers Misc 0-04 directed ity of 00:00: [place] [facility] Lancets 2017-1 Yes [id number] Use as Uni vers Misc 0-04 directed ity of 00:00: [place] [facility] Lancets 2017-1 Yes [id number] Use as Uni vers Misc 0-04 directed ity of 00:00: [place] [facility] Lancets 2017-1 Yes [id number] Use as Uni vers Misc 0-04 directed ity of 00:00: [place] [facility] Lancets 2017-1 Yes [id number] Use as Uni vers Misc 0-04 directed ity of 00:00: [place] 00 [facility] Lancets 2017-1 Yes [id number] Use as Uni vers Misc 0-04 directed ity of 00:00: [place] 00 [facility] Lancets 2017-1 Yes [id number] Use as Uni vers Misc 0-04 directed ity of 00:00: [place] [facility] Lancets 2017-1 Yes [id number] Use as Uni vers Misc 0-04 directed ity of 00:00: [place] [facility] Lancets 2017-1 Yes [id number] Use as Uni vers Misc 0-04 directed ity of 00:00: [place] [facility] Lancets 2017-1 Yes [id number] Use as Uni vers Misc 0-04 directed ity of 00:00: [place] [facility] Lancets 2017-1 Yes [id number] Use as Uni vers Misc 0-04 directed ity of 00:00: [place] [facility] Lancets 2017-1 Yes [id number] Use as Uni vers Misc 0-04 directed ity of 00:00: [place] [facility] Lancets 2017-1 Yes [id number] Use as Uni vers Misc 0-04 directed ity of 00:00: [place] [facility] Lancets 2017-1 Yes [id number] Use as Uni vers Misc 0-04 directed ity of 00:00: [place] [facility] Lancets 2017-1 Yes [id number] Use as Uni vers Misc 0-04 directed ity of 00:00: [place] [facility] Lancets 2017-1 Yes [id number] Use as Uni vers Misc 0-04 directed ity of 00:00: [place] [facility] Lancets 2017-1 Yes [id number] Use as Uni vers Misc 0-04 directed ity of 00:00: [place] [facility] Lancets 2017-1 Yes [id number] Use as Uni vers Misc 0-04 directed ity of 00:00: [place] 00 [facility] Lancets 2017-1 Yes [id number] Use as Uni vers Misc 0-04 directed ity of 00:00: [place] 00 [facility] Lancets 2017-1 Yes [id number] Use as Uni vers Misc 0-04 directed ity of 00:00: [place] 00 [facility] Lancets 2017-1 Yes [id number] Use as Uni vers Misc 0-04 directed ity of 00:00: [place] 00 [facility] Sodium 2016-0 No 1,000 mL, Memori a Chloride 7-20 Rate: 25 l 0.154 13:42: ml/hr, [place] MEQ/ML 00 Infuse Injectable over: 40 Solution hr, Route: IV, Dosing Weight 89.205 kg, Total Volume: 1,000, Start date: 09/21/15 8:42:00 CDT, Duration: 1 day, Stop date: 09/22/15 8:41:00 CDT Sodium 2016-0 No 1,000 mL, Memori a Chloride 7-20 Rate: 25 l 0.154 13:42: ml/hr, [place] MEQ/ML 00 Infuse Injectable over: 40 Solution [...] tab, PO, l tablet 13:07: Daily, # [place] 00 30 tab, 0 Refill(s) lisinopril 2016-0 Yes 20 mg = 1 Me moria 20 mg oral 5-18 tab, PO, l tablet 13:07: Daily, # [place] 00 30 tab, 0 Refill(s) lisinopril 2016-0 Yes 20 mg = 1 Me moria 20 mg oral 5-18 tab, PO, l tablet 13:07: Daily, # [place] 00 30 tab, 0 Refill(s) lisinopril 2016-0 Yes 20 mg = 1 Me moria 20 mg oral 5-18 tab, PO, l tablet 13:07: Daily, # [place] 00 30 tab, 0 Refill(s) Immunizations Ordered Filled Immunization Date Status Comments [facility] e Immunization Name Name Influenza Virus 2021-12-06 [...] y of Vaccine,quad 00:00:00 [facility] [place] 65+ Influenza Virus 2021-12-06 Completed [facility] Vacc[facility],quad [facility] [place] 65+ SARS-COV-2 COVID-19 2020-04-28 Completed [facility] of PFIZER VACCINE 00:00:00 [facility] SARS-COV-2 COVID-19 2020-04-28 Completed Unive rsity of PFIZER VACCINE 00:00:00 [facility] SARS-COV-2 COVID-19 2020-04-28 Completed Unive rsity of PFIZER VACCINE 00:00:00 [facility] SARS-COV-2 COVID-19 2020-04-28 Completed Unive rsity of PFIZER VACCINE 00:00:00 [facility] SARS-COV-2 COVID-19 2020-04-28 Completed [facility] PFIZER VACCINE 00:00:00 [facility] SARS-COV-2 COVID-19 2020-04-28 Completed [facility] PFIZER VACCINE 00:00:00 [facility] SARS-COV-2 COVID-19 2020-04-28 Completed [facility] PFIZER VACCINE 00:00:00 [facility] SARS-COV-2 COVID-19 2020-04-28 Completed [facility] PFIZER VACCINE 00:00:00 [facility] SARS-COV-2 COVID-19 2020-04-28 Completed [facility] PFIZER VACCINE 00:00:00 [facility] SARS-COV-2 COVID-19 2020-04-28 Completed [facility] PFIZER VACCINE 00:00:00 [facility] SARS-COV-2 COVID-19 2020-04-28 Completed [facility] PFIZER VACCINE 00:00:00 [facility] SARS-COV-2 COVID-19 2020-04-28 Completed [facility] PFIZER VACCINE 00:00:00 [facility] SARS-COV-2 COVID-19 2020-04-28 Completed [facility] PFIZER VACCINE 00:00:00 [facility] SARS-COV-2 COVID-19 2020-04-28 Completed [facility] PFIZER VACCINE 00:00:00 [facility] SARS-COV-2 COVID-19 2020-04-28 Completed [facility] PFIZER VACCINE 00:00:00 [facility] SARS-COV-2 COVID-19 2020-04-28 Completed [facility] PFIZER VACCINE 00:00:00 [facility] SARS-COV-2 COVID-19 2020-04-28 Completed [facility] PFIZER VACCINE 00:00:00 [facility] SARS-COV-2 COVID-19 2020-04-28 Completed [facility] PFIZER VACCINE 00:00:00 [facility] SARS-COV-2 COVID-19 2020-04-28 Completed [facility] PFIZER VACCINE 00:00:00 [facility] SARS-COV-2 COVID-19 2020-04-28 Completed [facility] PFIZER VACCINE 00:00:00 [facility] SARS-COV-2 COVID-19 2020-04-28 Completed [facility] PFIZER VACCINE 00:00:00 [facility] SARS-COV-2 COVID-19 2020-04-28 Completed [facility] PFIZER VACCINE 00:00:00 [facility] SARS-COV-2 COVID-19 2020-04-28 Completed [facility] PFIZER VACCINE 00:00:00 [facility] SARS-COV-2 COVID-19 2020-04-28 Completed [facility] PFIZER VACCINE 00:00:00 [facility] SARS-COV-2 COVID-19 2020-04-28 Completed [facility] PFIZER VACCINE 00:00:00 [facility] SARS-COV-2 COVID-19 2020-04-28 Completed [facility] PFIZER VACCINE 00:00:00 [facility] SARS-COV-2 COVID-19 2020-04-28 Completed [facility] PFIZER VACCINE 00:00:00 [facility] SARS-COV-2 COVID-19 2020-04-28 Completed [facility] PFIZER VACCINE 00:00:00 [facility] SARS-COV-2 COVID-19 2020-04-28 Completed [facility] PFIZER VACCINE 00:00:00 [facility] SARS-COV-2 COVID-19 2020-04-28 Completed [facility] PFIZER VACCINE 00:00:00 [facility] SARS-COV-2 COVID-19 2020-04-28 Completed [facility] PFIZER VACCINE 00:00:00 [facility] SARS-COV-2 COVID-19 2020-04-28 Completed [facility] PFIZER VACCINE 00:00:00 [facility] SARS-COV-2 COVID-19 2020-04-28 Completed [facility] PFIZER VACCINE 00:00:00 [facility] SARS-COV-2 COVID-19 2020-04-28 Completed [facility] PFIZER VACCINE 00:00:00 [facility] SARS-COV-2 COVID-19 2020-04-28 Completed [facility] PFIZER VACCINE 00:00:00 [facility] SARS-COV-2 COVID-19 2020-04-28 Completed [facility] PFIZER VACCINE 00:00:00 [facility] SARS-COV-2 COVID-19 2020-04-28 Completed [facility] PFIZER VACCINE 00:00:00 [facility] SARS-COV-2 COVID-19 2020-04-28 Completed [facility] PFIZER VACCINE 00:00:00 [facility] SARS-COV-2 COVID-19 2020-04-28 Completed [facility] PFIZER VACCINE 00:00:00 [facility] SARS-COV-2 COVID-19 2020-04-28 Completed [facility] PFIZER VACCINE 00:00:00 [facility] SARS-COV-2 COVID-19 2020-04-28 Completed [facility] PFIZER VACCINE 00:00:00 [facility] SARS-COV-2 COVID-19 2020-04-28 Completed [facility] PFIZER VACCINE 00:00:00 [facility] SARS-COV-2 COVID-19 2020-04-28 Completed [facility] PFIZER VACCINE 00:00:00 [facility] SARS-COV-2 COVID-19 2020-04-28 Completed [facility] PFIZER VACCINE 00:00:00 [facility] SARS-COV-2 COVID-19 2020-04-28 Completed [facility] PFIZER VACCINE 00:00:00 [facility] SARS-COV-2 COVID-19 2020-04-28 Completed [facility] PFIZER VACCINE 00:00:00 [facility] SARS-COV-2 COVID-19 2020-04-28 Completed [facility] PFIZER VACCINE 00:00:00 [facility] SARS-COV-2 COVID-19 2020-04-28 Completed [facility] PFIZER VACCINE 00:00:00 [facility] SARS-COV-2 COVID-19 2020-04-28 Completed [facility] PFIZER VACCINE 00:00:00 [facility] SARS-COV-2 COVID-19 2020-04-28 Completed [facility] PFIZER VACCINE 00:00:00 [facility] SARS-COV-2 COVID-19 2020-04-28 Completed [facility] PFIZER VACCINE 00:00:00 [facility] SARS-COV-2 COVID-19 2020-04-28 Completed [facility] PFIZER VACCINE 00:00:00 [facility] SARS-COV-2 COVID-19 2020-04-28 Completed [facility] PFIZER VACCINE 00:00:00 [facility] SARS-COV-2 COVID-19 2020-04-28 Completed [facility] PFIZER VACCINE 00:00:00 [facility] SARS-COV-2 COVID-19 2020-04-28 Completed [facility] PFIZER VACCINE 00:00:00 [facility] SARS-COV-2 COVID-19 2020-04-28 Completed [facility] PFIZER VACCINE 00:00:00 [facility] SARS-COV-2 COVID-19 2020-04-28 Completed [facility] PFIZER VACCINE 00:00:00 [facility] SARS-COV-2 COVID-19 2020-04-28 Completed [facility] PFIZER VACCINE 00:00:00 [facility] SARS-COV-2 COVID-19 2020-04-28 Completed [facility] PFIZER VACCINE 00:00:00 [facility] SARS-COV-2 COVID-19 2020-04-28 Completed [facility] PFIZER VACCINE 00:00:00 [facility] SARS-COV-2 COVID-19 2020-04-28 Completed [facility] PFIZER VACCINE 00:00:00 [facility] SARS-COV-2 COVID-19 2020-04-28 Completed [facility] PFIZER VACCINE 00:00:00 [facility] SARS-COV-2 COVID-19 2020-04-28 Completed [facility] PFIZER VACCINE 00:00:00 [facility] SARS-COV-2 COVID-19 2020-04-28 Completed [facility] PFIZER VACCINE 00:00:00 [facility] SARS-COV-2 COVID-19 2020-04-28 Completed [facility] PFIZER VACCINE 00:00:00 [facility] SARS-COV-2 COVID-19 2020-04-28 Completed [facility] PFIZER VACCINE 00:00:00 [facility] SARS-COV-2 COVID-19 2020-04-28 Completed [facility] PFIZER VACCINE 00:00:00 [facility] SARS-COV-2 COVID-19 2020-04-28 Completed [facility] PFIZER VACCINE 00:00:00 [facility] SARS-COV-2 COVID-19 2020-04-28 Completed [facility] PFIZER VACCINE 00:00:00 [facility] SARS-COV-2 COVID-19 2020-04-28 Completed [facility] PFIZER VACCINE 00:00:00 [facility] SARS-COV-2 COVID-19 2020-04-28 Completed [facility] PFIZER VACCINE 00:00:00 [facility] SARS-COV-2 COVID-19 2020-04-28 Completed [facility] PFIZER VACCINE 00:00:00 [facility] SARS-COV-2 COVID-19 2020-04-28 Completed [facility] PFIZER VACCINE 00:00:00 [facility] SARS-COV-2 COVID-19 2020-04-28 Completed [facility] PFIZER VACCINE 00:00:00 [facility] SARS-COV-2 COVID-19 2020-04-28 Completed [facility] PFIZER VACCINE 00:00:00 [facility] SARS-COV-2 COVID-19 2020-04-28 Completed [facility] PFIZER VACCINE 00:00:00 [facility] SARS-COV-2 COVID-19 2020-04-28 Completed [facility] PFIZER VACCINE 00:00:00 [facility] SARS-COV-2 COVID-19 2020-04-03 Completed [facility] PFIZER VACCINE 00:00:00 [facility] SARS-COV-2 COVID-19 2020-04-03 Completed [facility] PFIZER VACCINE 00:00:00 [facility] SARS-COV-2 COVID-19 2020-04-03 Completed [facility] PFIZER VACCINE 00:00:00 [facility] SARS-COV-2 COVID-19 2020-04-03 Completed [facility] PFIZER VACCINE 00:00:00 [facility] SARS-COV-2 COVID-19 2020-04-03 Completed [facility] PFIZER VACCINE 00:00:00 [facility] SARS-COV-2 COVID-19 2020-04-03 Completed [facility] PFIZER VACCINE 00:00:00 [facility] SARS-COV-2 COVID-19 2020-04-03 Completed [facility] PFIZER VACCINE 00:00:00 [facility] SARS-COV-2 COVID-19 2020-04-03 Completed [facility] PFIZER VACCINE 00:00:00 [facility] SARS-COV-2 COVID-19 2020-04-03 Completed [facility] PFIZER VACCINE 00:00:00 [facility] SARS-COV-2 COVID-19 2020-04-03 Completed [facility] PFIZER VACCINE 00:00:00 [facility] SARS-COV-2 COVID-19 2020-04-03 Completed [facility] PFIZER VACCINE 00:00:00 [facility] SARS-COV-2 COVID-19 2020-04-03 Completed [facility] PFIZER VACCINE 00:00:00 [facility] SARS-COV-2 COVID-19 2020-04-03 Completed [facility] PFIZER VACCINE 00:00:00 [facility] SARS-COV-2 COVID-19 2020-04-03 Completed [facility] PFIZER VACCINE 00:00:00 [facility] SARS-COV-2 COVID-19 2020-04-03 Completed [facility] PFIZER VACCINE 00:00:00 [facility] SARS-COV-2 COVID-19 2020-04-03 Completed [facility] PFIZER VACCINE 00:00:00 [facility] SARS-COV-2 COVID-19 2020-04-03 Completed [facility] PFIZER VACCINE 00:00:00 [facility] SARS-COV-2 COVID-19 2020-04-03 Completed [facility] PFIZER VACCINE 00:00:00 [facility] SARS-COV-2 COVID-19 2020-04-03 Completed [facility] PFIZER VACCINE 00:00:00 [facility] SARS-COV-2 COVID-19 2020-04-03 Completed [facility] PFIZER VACCINE 00:00:00 [facility] SARS-COV-2 COVID-19 2020-04-03 Completed [facility] PFIZER VACCINE 00:00:00 [facility] SARS-COV-2 COVID-19 2020-04-03 Completed [facility] PFIZER VACCINE 00:00:00 [facility] SARS-COV-2 COVID-19 2020-04-03 Completed [facility] PFIZER VACCINE 00:00:00 [facility] SARS-COV-2 COVID-19 2020-04-03 Completed [facility] PFIZER VACCINE 00:00:00 [facility] SARS-COV-2 COVID-19 2020-04-03 Completed [facility] PFIZER VACCINE 00:00:00 [facility] SARS-COV-2 COVID-19 2020-04-03 Completed [facility] PFIZER VACCINE 00:00:00 [facility] SARS-COV-2 COVID-19 2020-04-03 Completed [facility] PFIZER VACCINE 00:00:00 [facility] SARS-COV-2 COVID-19 2020-04-03 Completed [facility] PFIZER VACCINE 00:00:00 [facility] SARS-COV-2 COVID-19 2020-04-03 Completed [facility] PFIZER VACCINE 00:00:00 [facility] SARS-COV-2 COVID-19 2020-04-03 Completed [facility] PFIZER VACCINE 00:00:00 [facility] SARS-COV-2 COVID-19 2020-04-03 Completed [facility] PFIZER VACCINE 00:00:00 [facility] SARS-COV-2 COVID-19 2020-04-03 Completed [facility] PFIZER VACCINE 00:00:00 [facility] SARS-COV-2 COVID-19 2020-04-03 Completed [facility] PFIZER VACCINE 00:00:00 [facility] SARS-COV-2 COVID-19 2020-04-03 Completed [facility] PFIZER VACCINE 00:00:00 [facility] SARS-COV-2 COVID-19 2020-04-03 Completed [facility] PFIZER VACCINE 00:00:00 [facility] SARS-COV-2 COVID-19 2020-04-03 Completed [facility] PFIZER VACCINE 00:00:00 [facility] SARS-COV-2 COVID-19 2020-04-03 Completed [facility] PFIZER VACCINE 00:00:00 [facility] SARS-COV-2 COVID-19 2020-04-03 Completed [facility] PFIZER VACCINE 00:00:00 [facility] SARS-COV-2 COVID-19 2020-04-03 Completed [facility] PFIZER VACCINE 00:00:00 [facility] SARS-COV-2 COVID-19 2020-04-03 Completed [facility] PFIZER VACCINE 00:00:00 [facility] SARS-COV-2 COVID-19 2020-04-03 Completed [facility] PFIZER VACCINE 00:00:00 [facility] SARS-COV-2 COVID-19 2020-04-03 Completed [facility] PFIZER VACCINE 00:00:00 [facility] SARS-COV-2 COVID-19 2020-04-03 Completed [facility] PFIZER VACCINE 00:00:00 [facility] SARS-COV-2 COVID-19 2020-04-03 Completed [facility] PFIZER VACCINE 00:00:00 [facility] SARS-COV-2 COVID-19 2020-04-03 Completed [facility] PFIZER VACCINE 00:00:00 [facility] SARS-COV-2 COVID-19 2020-04-03 Completed [facility] PFIZER VACCINE 00:00:00 [facility] SARS-COV-2 COVID-19 2020-04-03 Completed [facility] PFIZER VACCINE 00:00:00 [facility] SARS-COV-2 COVID-19 2020-04-03 Completed [facility] PFIZER VACCINE 00:00:00 [facility] SARS-COV-2 COVID-19 2020-04-03 Completed [facility] PFIZER VACCINE 00:00:00 [facility] SARS-COV-2 COVID-19 2020-04-03 Completed [facility] PFIZER VACCINE 00:00:00 [facility] SARS-COV-2 COVID-19 2020-04-03 Completed [facility] PFIZER VACCINE 00:00:00 [facility] SARS-COV-2 COVID-19 2020-04-03 Completed [facility] PFIZER VACCINE 00:00:00 [facility] SARS-COV-2 COVID-19 2020-04-03 Completed [facility] PFIZER VACCINE 00:00:00 [facility] SARS-COV-2 COVID-19 2020-04-03 Completed [facility] PFIZER VACCINE 00:00:00 [facility] SARS-COV-2 COVID-19 2020-04-03 Completed [facility] PFIZER VACCINE 00:00:00 [facility] SARS-COV-2 COVID-19 2020-04-03 Completed [facility] PFIZER VACCINE 00:00:00 [facility] SARS-COV-2 COVID-19 2020-04-03 Completed [facility] PFIZER VACCINE 00:00:00 [facility] SARS-COV-2 COVID-19 2020-04-03 Completed [facility] PFIZER VACCINE 00:00:00 [facility] SARS-COV-2 COVID-19 2020-04-03 Completed [facility] PFIZER VACCINE 00:00:00 [facility] SARS-COV-2 COVID-19 2020-04-03 Completed [facility] PFIZER VACCINE 00:00:00 [facility] SARS-COV-2 COVID-19 2020-04-03 Completed [facility] PFIZER VACCINE 00:00:00 [facility] SARS-COV-2 COVID-19 2020-04-03 Completed [facility] PFIZER VACCINE 00:00:00 [facility] SARS-COV-2 COVID-19 2020-04-03 Completed [facility] PFIZER VACCINE 00:00:00 [facility] SARS-COV-2 COVID-19 2020-04-03 Completed [facility] PFIZER VACCINE 00:00:00 [facility] SARS-COV-2 COVID-19 2020-04-03 Completed [facility] PFIZER VACCINE 00:00:00 [facility] SARS-COV-2 COVID-19 2020-04-03 Completed [facility] PFIZER VACCINE 00:00:00 [facility] SARS-COV-2 COVID-19 2020-04-03 Completed [facility] PFIZER VACCINE 00:00:00 [facility] SARS-COV-2 COVID-19 2020-04-03 Completed [facility] PFIZER VACCINE 00:00:00 [facility] SARS-COV-2 COVID-19 2020-04-03 Completed [facility] PFIZER VACCINE 00:00:00 [facility] SARS-COV-2 COVID-19 2020-04-03 Completed [facility] PFIZER VACCINE 00:00:00 [facility] SARS-COV-2 COVID-19 2020-04-03 Completed [facility] PFIZER VACCINE 00:00:00 [facility] SARS-COV-2 COVID-19 2020-04-03 Completed [facility] PFIZER VACCINE 00:00:00 [facility] SARS-COV-2 COVID-19 2020-04-03 Completed [facility] PFIZER VACCINE 00:00:00 [facility] SARS-COV-2 COVID-19 2020-04-03 Completed [facility] PFIZER VACCINE 00:00:00 [facility] SARS-COV-2 COVID-19 2020-04-03 Completed [facility] PFIZER VACCINE 00:00:00 [facility] SARS-COV-2 COVID-19 2020-04-03 Completed [facility] PFIZER VACCINE 00:00:00 [facility] SARS-COV-2 COVID-19 2020-04-03 Completed [facility] PFIZER VACCINE 00:00:00 [facility] Influenza High Dose 2019-11-24 Completed [facility] [place] 00:00:00 [facility] Influenza Virus 2019-11-24 Completed [facility] Vaccine 00:00:00 [facility] Influenza High Dose 2019-11-24 Completed [facility] 00:00:00 [facility] Influenza Virus 2019-11-24 Completed [facility] Vaccine 00:00:00 [facility] Influenza High Dose 2019-11-24 Completed [facility] 00:00:00 [facility] Influenza Virus 2019-11-24 Completed [facility] Vaccine 00:00:00 [facility] Influenza High Dose 2019-11-24 Completed [facility] 00:00:00 [facility] Influenza Virus 2019-11-24 Completed [facility] Vaccine 00:00:00 [facility] Influenza High Dose 2019-11-24 Completed [facility] 00:00:00 [facility] Influenza Virus 2019-11-24 Completed [facility] Vaccine 00:00:00 [facility] Influenza High Dose 2019-11-24 Completed [facility] 00:00:00 [facility] Influenza Virus 2019-11-24 Completed [facility] Vaccine 00:00:00 [facility] Influenza High Dose 2019-11-24 Completed [facility] 00:00:00 [facility] Influenza Virus 2019-11-24 Completed [facility] Vaccine 00:00:00 [facility] Influenza High Dose 2019-11-24 Completed [facility] 00:00:00 [facility] Influenza Virus 2019-11-24 Completed [facility] Vaccine 00:00:00 [facility] Influenza High Dose 2019-11-24 Completed [facility] 00:00:00 [facility] Influenza Virus 2019-11-24 Completed [facility] Vaccine 00:00:00 [facility] Influenza High Dose 2019-11-24 Completed [facility] 00:00:00 [facility] Influenza Virus 2019-11-24 Completed [facility] Vaccine 00:00:00 [facility] Influenza High Dose 2019-11-24 Completed [facility] 00:00:00 [facility] Influenza Virus 2019-11-24 Completed [facility] Vaccine 00:00:00 [facility] Influenza High Dose 2019-11-24 Completed [facility] 00:00:00 [facility] Influenza Virus 2019-11-24 Completed [facility] Vaccine 00:00:00 [facility] Influenza High Dose 2019-11-24 Completed [facility] 00:00:00 [facility] Influenza Virus 2019-11-24 Completed [facility] Vaccine 00:00:00 [facility] Influenza High Dose 2019-11-24 Completed [facility] 00:00:00 [facility] Influenza Virus 2019-11-24 Completed [facility] Vaccine 00:00:00 [facility] Influenza High Dose 2019-11-24 Completed [facility] 00:00:00 [facility] Influenza Virus 2019-11-24 Completed [facility] Vaccine 00:00:00 [facility] Influenza High Dose 2019-11-24 Completed [facility] 00:00:00 [facility] Influenza Virus 2019-11-24 Completed [facility] Vaccine 00:00:00 [facility] Influenza High Dose 2019-11-24 Completed [facility] 00:00:00 [facility] Influenza Virus 2019-11-24 Completed [facility] Vaccine 00:00:00 [facility] Influenza High Dose 2019-11-24 Completed [facility] 00:00:00 [facility] Influenza Virus 2019-11-24 Completed [facility] Vaccine 00:00:00 [facility] Influenza High Dose 2019-11-24 Completed [facility] 00:00:00 [facility] Influenza Virus 2019-11-24 Completed [facility] Vaccine 00:00:00 [facility] Influenza High Dose 2019-11-24 Completed [facility] 00:00:00 [facility] Influenza Virus 2019-11-24 Completed [facility] Vaccine 00:00:00 [facility] Influenza High Dose 2019-11-24 Completed [facility] 00:00:00 [facility] Influenza Virus 2019-11-24 Completed [facility] Vaccine 00:00:00 [facility] Influenza High Dose 2019-11-24 Completed [facility] 00:00:00 [facility] Influenza Virus 2019-11-24 Completed [facility] Vaccine 00:00:00 [facility] Influenza High Dose 2019-11-24 Completed [facility] 00:00:00 [facility] Influenza Virus 2019-11-24 Completed [facility] Vaccine 00:00:00 [facility] Influenza High Dose 2019-11-24 Completed [facility] 00:00:00 [facility] Influenza Virus 2019-11-24 Completed [facility] Vaccine 00:00:00 [facility] Influenza High Dose 2019-11-24 Completed [facility] 00:00:00 [facility] Influenza Virus 2019-11-24 Completed [facility] Vaccine 00:00:00 [facility] Influenza High Dose 2019-11-24 Completed [facility] 00:00:00 [facility] Influenza Virus 2019-11-24 Completed [facility] Vaccine 00:00:00 [facility] Influenza High Dose 2019-11-24 Completed [facility] 00:00:00 [facility] Influenza Virus 2019-11-24 Completed [facility] Vaccine 00:00:00 [facility] Influenza High Dose 2019-11-24 Completed [facility] 00:00:00 [facility] Influenza Virus 2019-11-24 Completed [facility] Vaccine 00:00:00 [facility] Influenza High Dose 2019-11-24 Completed [facility] 00:00:00 [facility] Influenza Virus 2019-11-24 Completed [facility] Vaccine 00:00:00 [facility] Influenza High Dose 2019-11-24 Completed [facility]00 [facility] Influenza Virus 2019-11-24 Completed [facility] Vaccine 00:00:00 [facility] Influenza High Dose 2019-11-24 Completed [facility] 00:00:00 [facility] Influenza Virus 2019-11-24 Completed [facility] Vaccine 00:00:00 [facility] Influenza High Dose 2019-11-24 Completed [facility] 00:00:00 [facility] Influenza Virus 2019-11-24 Completed [facility] Vaccine 00:00:00 [facility] Influenza High Dose 2019-11-24 Completed [facility] 00:00:00 [facility] Influenza Virus 2019-11-24 Completed [facility] Vaccine 00:00:00 [facility] Influenza High Dose 2019-11-24 Completed [facility] 00:00:00 [facility] Influenza Virus 2019-11-24 Completed [facility] Vaccine 00:00:00 [facility] Influenza High Dose 2019-11-24 Completed [facility] 00:00:00 [facility] Influenza Virus 2019-11-24 Completed [facility] Vaccine 00:00:00 [facility] Influenza High Dose 2019-11-24 Completed [facility] 00:00:00 [facility] Influenza Virus 2019-11-24 Completed [facility] Vaccine 00:00:00 [facility] Influenza High Dose 2019-11-24 Completed [facility] 00:00:00 [facility] Influenza Virus 2019-11-24 Completed [facility] Vaccine 00:00:00 [facility] Influenza High Dose 2019-11-24 Completed [facility] 00:00:00 [facility] Influenza Virus 2019-11-24 Completed [facility] Vaccine 00:00:00 [facility] Influenza High Dose 2019-11-24 Completed [facility] 00:00:00 [facility] Influenza Virus 2019-11-24 Completed [facility] Vaccine 00:00:00 [facility] Influenza High Dose 2019-11-24 Completed [facility] 00:00:00 [facility] Influenza Virus 2019-11-24 Completed [facility] Vaccine 00:00:00 [facility] Influenza High Dose 2019-11-24 Completed [facility] 00:00:00 [facility] Influenza Virus 2019-11-24 Completed [facility] Vaccine 00:00:00 [facility] Influenza High Dose 2019-11-24 Completed [facility] 00:00:00 [facility] Influenza Virus 2019-11-24 Completed [facility] Vaccine 00:00:00 [facility] Influenza High Dose 2019-11-24 Completed [facility] 00:00:00 [facility] Influenza Virus 2019-11-24 Completed [facility] Vaccine 00:00:00 [facility] Influenza High Dose 2019-11-24 Completed [facility] 00:00:00 [facility] Influenza Virus 2019-11-24 Completed [facility] Vaccine 00:00:00 [facility] Influenza High Dose 2019-11-24 Completed [facility] 00:00:00 [facility] Influenza Virus 2019-11-24 Completed [facility] Vaccine 00:00:00 [facility] Influenza High Dose 2019-11-24 Completed [facility] 00:00:00 [facility] Influenza Virus 2019-11-24 Completed [facility] Vaccine 00:00:00 [facility] Influenza High Dose 2019-11-24 Completed [facility] 00:00:00 [facility] Influenza Virus 2019-11-24 Completed [facility] Vaccine 00:00:00 [facility] Influenza High Dose 2019-11-24 Completed [facility] 00:00:00 [facility] Influenza Virus 2019-11-24 Completed [facility] Vaccine 00:00:00 [facility] Influenza High Dose 2019-11-24 Completed [facility] 00:00:00 [facility] Influenza Virus 2019-11-24 Completed [facility] Vaccine 00:00:00 [facility] Influenza High Dose 2019-11-24 Completed [facility] 00:00:00 [facility] Influenza Virus 2019-11-24 Completed [facility] Vaccine 00:00:00 [facility] Influenza High Dose 2019-11-24 Completed [facility] 00:00:00 [facility] Influenza Virus 2019-11-24 Completed [facility] Vaccine 00:00:00 [facility] Influenza High Dose 2019-11-24 Completed [facility] 00:00:00 [facility] Influenza Virus 2019-11-24 Completed [facility] Vaccine 00:00:00 [facility] Influenza High Dose 2019-11-24 Completed [facility] 00:00:00 [facility] Influenza Virus 2019-11-24 Completed [facility] Vaccine 00:00:00 [facility] Influenza High Dose 2019-11-24 Completed [facility] 00:00:00 [facility] Influenza Virus 2019-11-24 Completed [facility] Vaccine 00:00:00 [facility] Influenza High Dose 2019-11-24 Completed [facility] 00:00:00 [facility] Influenza Virus 2019-11-24 Completed [facility] Vaccine 00:00:00 [facility] Influenza High Dose 2019-11-24 Completed [facility] 00:00:00 [facility] Influenza Virus 2019-11-24 Completed [facility] Vaccine 00:00:00 [facility] Influenza High Dose 2019-11-24 Completed [facility] 00:00:00 [facility] Influenza Virus 2019-11-24 Completed [facility] Vaccine 00:00:00 [facility] Influenza High Dose 2019-11-24 Completed [facility] 00:00:00 [facility] Influenza Virus 2019-11-24 Completed [facility] Vaccine 00:00:00 [facility] Influenza High Dose 2019-11-24 Completed [facility] 00:00:00 [facility] Influenza Virus 2019-11-24 Completed [facility] Vaccine 00:00:00 [facility] Influenza High Dose 2019-11-24 Completed [facility] 00:00:00 [facility] Influenza Virus 2019-11-24 Completed [facility] Vaccine 00:00:00 [facility] Influenza High Dose 2019-11-24 Completed [facility] 00:00:00 [facility] Influenza Virus 2019-11-24 Completed [facility] Vaccine 00:00:00 [facility] Influenza High Dose 2019-11-24 Completed [facility] 00:00:00 [facility] Influenza Virus 2019-11-24 Completed [facility] Vaccine 00:00:00 [facility] Influenza High Dose 2019-11-24 Completed [facility] 00:00:00 [facility] Influenza Virus 2019-11-24 Completed [facility] Vaccine 00:00:00 [facility] Influenza High Dose 2019-11-24 Completed [facility] 00:00:00 [facility] Influenza Virus 2019-11-24 Completed [facility] Vaccine 00:00:00 [facility] Influenza High Dose 2019-11-24 Completed [facility] 00:00:00 [facility] Influenza Virus 2019-11-24 Completed [facility] Vaccine 00:00:00 [facility] Influenza High Dose 2019-11-24 Completed [facility] 00:00:00 [facility] Influenza Virus 2019-11-24 Completed [facility] Vaccine 00:00:00 [facility] Influenza High Dose 2019-11-24 Completed [facility] 00:00:00 [facility] Influenza Virus 2019-11-24 Completed [facility] Vaccine 00:00:00 [facility] Influenza High Dose 2019-11-24 Completed [facility] 00:00:00 [facility] Influenza Virus 2019-11-24 Completed [facility] Vaccine 00:00:00 [facility] Influenza High Dose 2019-11-24 Completed [facility] 00:00:00 [facility] Influenza Virus 2019-11-24 Completed [facility] Vaccine 00:00:00 [facility] Influenza High Dose 2019-11-24 Completed [facility] 00:00:00 [facility] Influenza Virus 2019-11-24 Completed [facility] Vaccine 00:00:00 [facility] Influenza High Dose 2019-11-24 Completed [facility] 00:00:00 [facility] Influenza Virus 2019-11-24 Completed [facility] Vaccine 00:00:00 [facility] Influenza High Dose 2019-11-24 Completed [facility] 00:00:00 [facility] Influenza Virus 2019-11-24 Completed [facility] Vaccine 00:00:00 [facility] Influenza High Dose 2019-11-24 Completed [facility] 00:00:00 [facility] Influenza Virus 2019-11-24 Completed [facility] Vaccine 00:00:00 [facility] Influenza High Dose 2019-11-24 Completed [facility] 00:00:00 [facility] Influenza Virus 2019-11-24 Completed [facility] Vaccine 00:00:00 [facility] Influenza High Dose 2019-11-24 Completed [facility] 00:00:00 [facility] Influenza Virus 2019-11-24 Completed [facility] Vaccine 00:00:00 [facility] Influenza High Dose 2019-11-24 Completed [facility] 00:00:00 [facility] Influenza Virus 2019-11-24 Completed [facility] Vaccine 00:00:00 [facility] Influenza High Dose 2019-11-24 Completed [facility] 00:00:00 [facility] Influenza Virus 2019-11-24 Completed [facility] Vaccine 00:00:00 [facility] Influenza High Dose 2019-01-20 Completed [facility] 00:00:00 [facility] Influenza High Dose 2019-01-20 Completed [facility] 00:00:00 [facility] Influenza High Dose 2019-01-20 Completed [facility] 00:00:00 [facility] Influenza High Dose 2019-01-20 Completed [facility] 00:00:00 [facility] Influenza High Dose 2019-01-20 Completed [facility] 00:00:00 [facility] Influenza High Dose 2019-01-20 Completed [facility] 00:00:00 [facility] Influenza High Dose 2019-01-20 Completed [facility] 00:00:00 [facility] Influenza High Dose 2019-01-20 Completed [facility] 00:00:00 [facility] Influenza High Dose 2019-01-20 Completed [facility] 00:00:00 [facility] Influenza High Dose 2019-01-20 Completed [facility] 00:00:00 [facility] Influenza High Dose 2019-01-20 Completed [facility] 00:00:00 [facility] Influenza High Dose 2019-01-20 Completed [facility] 00:00:00 [facility] Influenza High Dose 2019-01-20 Completed [facility] 00:00:00 [facility] Influenza High Dose 2019-01-20 Completed [facility] 00:00:00 [facility] Influenza High Dose 2019-01-20 Completed [facility] 00:00:00 [facility] Influenza High Dose 2019-01-20 Completed [facility] 00:00:00 [facility] Influenza High Dose 2019-01-20 Completed [facility] 00:00:00 [facility] Influenza High Dose 2019-01-20 Completed [facility] 00:00:00 [facility] Influenza High Dose 2019-01-20 Completed [facility] 00:00:00 [facility] Influenza High Dose 2019-01-20 Completed [facility] 00:00:00 [facility] Influenza High Dose 2019-01-20 Completed [facility] 00:00:00 [facility] Influenza High Dose 2019-01-20 Completed [facility] 00:00:00 [facility] Influenza High Dose 2019-01-20 Completed [facility] 00:00:00 [facility] Influenza High Dose 2019-01-20 Completed [facility] 00:00:00 [facility] Influenza High Dose 2019-01-20 Completed [facility] 00:00:00 [facility] Influenza High Dose 2019-01-20 Completed [facility] 00:00:00 [facility] Influenza High Dose 2019-01-20 Completed [facility] 00:00:00 [facility] Influenza High Dose 2019-01-20 Completed [facility] 00:00:00 [facility] Influenza High Dose 2019-01-20 Completed [facility] 00:00:00 [facility] Influenza High Dose 2019-01-20 Completed [facility] 00:00:00 [facility] Influenza High Dose 2019-01-20 Completed [facility] 00:00:00 [facility] Influenza High Dose 2019-01-20 Completed [facility] 00:00:00 [facility] Influenza High Dose 2019-01-20 Completed [facility] 00:00:00 [facility] Influenza High Dose 2019-01-20 Completed [facility] 00:00:00 [facility] Influenza High Dose 2019-01-20 Completed [facility] 00:00:00 [facility] Influenza High Dose 2019-01-20 Completed [facility] 00:00:00 [facility] Influenza High Dose 2019-01-20 Completed [facility] 00:00:00 [facility] Influenza High Dose 2019-01-20 Completed [facility] 00:00:00 [facility] Influenza High Dose 2019-01-20 Completed [facility] 00:00:00 [facility] Influenza High Dose 2019-01-20 Completed [facility] 00:00:00 [facility] Influenza High Dose 2019-01-20 Completed [facility] 00:00:00 [facility] Influenza High Dose 2019-01-20 Completed [facility] 00:00:00 [facility] Influenza High Dose 2019-01-20 Completed [facility] 00:00:00 [facility] Influenza High Dose 2019-01-20 Completed [facility] 00:00:00 [facility] Influenza High Dose 2019-01-20 Completed [facility] 00:00:00 [facility] Influenza High Dose 2019-01-20 Completed [facility] 00:00:00 [facility] Influenza High Dose 2019-01-20 Completed [facility] 00:00:00 [facility] Influenza High Dose 2019-01-20 Completed [facility] 00:00:00 [facility] Influenza High Dose 2019-01-20 Completed [facility] 00:00:00 [facility] Influenza High Dose 2019-01-20 Completed [facility] 00:00:00 [facility] Influenza High Dose 2019-01-20 Completed [facility] 00:00:00 [facility] Influenza High Dose 2019-01-20 Completed [facility] 00:00:00 [facility] Influenza High Dose 2019-01-20 Completed [facility] 00:00:00 [facility] Influenza High Dose 2019-01-20 Completed [facility] 00:00:00 [facility] Influenza High Dose 2019-01-20 Completed [facility] 00:00:00 [facility] Influenza High Dose 2019-01-20 Completed [facility] 00:00:00 [facility] Influenza High Dose 2019-01-20 Completed [facility] 00:00:00 [facility] Influenza High Dose 2019-01-20 Completed [facility] 00:00:00 [facility] Influenza High Dose 2019-01-20 Completed [facility] 00:00:00 [facility] Influenza High Dose 2019-01-20 Completed [facility] 00:00:00 [facility] Influenza High Dose 2019-01-20 Completed [facility] 00:00:00 [facility] Influenza High Dose 2019-01-20 Completed [facility] 00:00:00 [facility] Influenza High Dose 2019-01-20 Completed [facility] 00:00:00 [facility] Influenza High Dose 2019-01-20 Completed [facility] 00:00:00 [facility] Influenza High Dose 2019-01-20 Completed [facility] 00:00:00 [facility] Influenza High Dose 2019-01-20 Completed [facility] 00:00:00 [facility] Influenza High Dose 2019-01-20 Completed [facility] 00:00:00 [facility] Influenza High Dose 2019-01-20 Completed [facility] 00:00:00 [facility] Influenza High Dose 2019-01-20 Completed [facility] 00:00:00 [facility] Influenza High Dose 2019-01-20 Completed [facility] 00:00:00 [facility] Influenza High Dose 2019-01-20 Completed [facility] 00:00:00 [facility] Influenza High Dose 2019-01-20 Completed [facility] 00:00:00 [facility] Influenza High Dose 2019-01-20 Completed [facility] 00:00:00 [facility] Influenza High Dose 2019-01-20 Completed [facility] 00:00:00 [facility] Influenza High Dose 2019-01-20 Completed [facility] 00:00:00 [facility] Influenza High Dose 2019-01-20 Completed [facility] 00:00:00 [facility] Influenza High Dose 2019-01-20 Completed [facility] 00:00:00 [facility] Influenza High Dose 2019-01-20 Completed [facility] 00:00:00 [facility] Influenza High Dose 2018-05-08 Completed [facility] 00:00:00 [facility] Pneumococcal 2018-05-08 Completed [facility] Polysaccharide, 00:00:00 [place] [facility] PPSV23 (PNEUMOVAX) [facility] Influenza High Dose 2018-05-08 Completed [facility] 00:00:00 [facility] Pneumococcal 2018-05-08 Completed [facility] Polysaccharide, 00:00:00 [place] [facility] PPSV23 (PNEUMOVAX) [facility] Influenza High Dose 2018-05-08 Completed [facility] 00:00:00 [facility] Pneumococcal 2018-05-08 Completed [facility] Polysaccharide, 00:00:00 [place] [facility] PPSV23 (PNEUMOVAX) [facility] Influenza High Dose 2018-05-08 Completed [facility] 00:00:00 [facility] Pneumococcal 2018-05-08 Completed [facility] Polysaccharide, 00:00:00 [place] [facility] PPSV23 (PNEUMOVAX) [facility] Influenza High Dose 2018-05-08 Completed [facility] 00:00:00 [facility] Pneumococcal 2018-05-08 Completed [facility] Polysaccharide, 00:00:00 [place] [facility] PPSV23 (PNEUMOVAX) [facility] Influenza High Dose 2018-05-08 Completed [facility] 00:00:00 [facility] Pneumococcal 2018-05-08 Completed [facility] Polysaccharide, 00:00:00 [place] [facility] PPSV23 (PNEUMOVAX) [facility] Influenza High Dose 2018-05-08 Completed [facility] 00:00:00 [facility] Pneumococcal 2018-05-08 Completed [facility] Polysaccharide, 00:00:00 [place] [facility] PPSV23 (PNEUMOVAX) [facility] Influenza High Dose 2018-05-08 Completed [facility] 00:00:00 [facility] Pneumococcal 2018-05-08 Completed [facility] Polysaccharide, 00:00:00 [place] [facility] PPSV23 (PNEUMOVAX) [facility] Influenza High Dose 2018-05-08 Completed [facility] 00:00:00 [facility] Pneumococcal 2018-05-08 Completed [facility] Polysaccharide, 00:00:00 [place] [facility] PPSV23 (PNEUMOVAX) [facility] Influenza High Dose 2018-05-08 Completed [facility] 00:00:00 [facility] Pneumococcal 2018-05-08 Completed [facility] Polysaccharide, 00:00:00 [place] [facility] PPSV23 (PNEUMOVAX) [facility] Influenza High Dose 2018-05-08 Completed [facility] 00:00:00 [facility] Pneumococcal 2018-05-08 Completed [facility] Polysaccharide, 00:00:00 [place] [facility] PPSV23 (PNEUMOVAX) [facility] Influenza High Dose 2018-05-08 Completed [facility] 00:00:00 [facility] Pneumococcal 2018-05-08 Completed [facility] Polysaccharide, 00:00:00 [place] [facility] PPSV23 (PNEUMOVAX) [facility] Influenza High Dose 2018-05-08 Completed [facility] 00:00:00 [facility] Pneumococcal 2018-05-08 Completed [facility] Polysaccharide, 00:00:00 [place] [facility] PPSV23 (PNEUMOVAX) [facility] Influenza High Dose 2018-05-08 Completed [facility] 00:00:00 [facility] Pneumococcal 2018-05-08 Completed [facility] Polysaccharide, 00:00:00 [place] [facility] PPSV23 (PNEUMOVAX) [facility] Influenza High Dose 2018-05-08 Completed [facility] 00:00:00 [facility] Pneumococcal 2018-05-08 Completed [facility] Polysaccharide, 00:00:00 [place] [facility] PPSV23 (PNEUMOVAX) [facility] Influenza High Dose 2018-05-08 Completed [facility] 00:00:00 [facility] Pneumococcal 2018-05-08 Completed [facility] Polysaccharide, 00:00:00 [place] [facility] PPSV23 (PNEUMOVAX) [facility] Influenza High Dose 2018-05-08 Completed [facility] 00:00:00 [facility] Pneumococcal 2018-05-08 Completed [facility] Polysaccharide, 00:00:00 [place] [facility] PPSV23 (PNEUMOVAX) [facility] Influenza High Dose 2018-05-08 Completed [facility] 00:00:00 [facility] Pneumococcal 2018-05-08 Completed [facility] Polysaccharide, 00:00:00 [place] [facility] PPSV23 (PNEUMOVAX) [facility] Influenza High Dose 2018-05-08 Completed [facility] 00:00:00 [facility] Pneumococcal 2018-05-08 Completed [facility] f Polysaccharide, 00:00:00 [place] [facility] PPSV23 (PNEUMOVAX) [facility] Influenza High Dose 2018-05-08 Completed [facility] 00:00:00 [facility] Pneumococcal 2018-05-08 Completed [facility] f Polysaccharide, 00:00:00 [place] [facility] PPSV23 (PNEUMOVAX) [facility] Influenza High Dose 2018-05-08 Completed [facility] 00:00:00 [facility] Pneumococcal 2018-05-08 Completed [facility] Polysaccharide, 00:00:00 [place] [facility] PPSV23 (PNEUMOVAX) [facility] Influenza High Dose 2018-05-08 Completed [facility] 00:00:00 [facility] Pneumococcal 2018-05-08 Completed [facility] f Polysaccharide, 00:00:00 [place] [facility] PPSV23 (PNEUMOVAX) [facility] Influenza High Dose 2018-05-08 Completed [facility] 00:00:00 [facility] Pneumococcal 2018-05-08 Completed [facility] f Polysaccharide, 00:00:00 [place] [facility] PPSV23 (PNEUMOVAX) [facility] Influenza High Dose 2018-05-08 Completed [facility] 00:00:00 [facility] Pneumococcal 2018-05-08 Completed [facility] f Polysaccharide, 00:00:00 [place] [facility] PPSV23 (PNEUMOVAX) [facility] Influenza High Dose 2018-05-08 Completed [facility] 00:00:00 [facility] Pneumococcal 2018-05-08 Completed [facility] f Polysaccharide, 00:00:00 [place] [facility] PPSV23 (PNEUMOVAX) [facility] Influenza High Dose 2018-05-08 Completed [facility] 00:00:00 [facility] Pneumococcal 2018-05-08 Completed [facility] Polysaccharide, 00:00:00 [place] [facility] PPSV23 (PNEUMOVAX) Branch Influenza High Dose 2018-05-08 Completed [facility] 00:00:00 [facility] Pneumococcal 2018-05-08 Completed [facility] Polysaccharide, 00:00:00 [place] [facility] PPSV23 (PNEUMOVAX) Branch Influenza High Dose 2018-05-08 Completed [facility] 00:00:00 [facility] Pneumococcal 2018-05-08 Completed [facility] Polysaccharide, 00:00:00 [place] [facility] PPSV23 (PNEUMOVAX) Branch Influenza High Dose 2018-05-08 Completed [facility] 00:00:00 [facility] Pneumococcal 2018-05-08 Completed [facility] Polysaccharide, 00:00:00 [place] [facility] PPSV23 (PNEUMOVAX) Branch Influenza High Dose 2018-05-08 Completed [facility] 00:00:00 [facility] Pneumococcal 2018-05-08 Completed [facility] Polysaccharide, 00:00:00 [place] [facility] PPSV23 (PNEUMOVAX) Branch Influenza High Dose 2018-05-08 Completed [facility] 00:00:00 [facility] Pneumococcal 2018-05-08 Completed [facility] Polysaccharide, 00:00:00 [place] [facility] PPSV23 (PNEUMOVAX) Branch Influenza High Dose 2018-05-08 Completed [facility] 00:00:00 [facility] Pneumococcal 2018-05-08 Completed [facility] Polysaccharide, 00:00:00 [place] [facility] PPSV23 (PNEUMOVAX) Branch Influenza High Dose 2018-05-08 Completed [facility] 00:00:00 [facility] Pneumococcal 2018-05-08 Completed [facility] Polysaccharide, 00:00:00 [place] [facility] PPSV23 (PNEUMOVAX) Branch Influenza High Dose 2018-05-08 Completed [facility] 00:00:00 [facility] Pneumococcal 2018-05-08 Completed [facility] Polysaccharide, 00:00:00 [place] [facility] PPSV23 (PNEUMOVAX) Branch Influenza High Dose 2018-05-08 Completed [facility] 00:00:00 [facility] Pneumococcal 2018-05-08 Completed [facility] Polysaccharide, 00:00:00 [place] [facility] PPSV23 (PNEUMOVAX) Branch Influenza High Dose 2018-05-08 Completed [facility] 00:00:00 [facility] Pneumococcal 2018-05-08 Completed [facility] Polysaccharide, 00:00:00 [place] [facility] PPSV23 (PNEUMOVAX) Branch Influenza High Dose 2018-05-08 Completed [facility] 00:00:00 [facility] Pneumococcal 2018-05-08 Completed [facility] Polysaccharide, 00:00:00 [place] [facility] PPSV23 (PNEUMOVAX) Branch Influenza High Dose 2018-05-08 Completed [facility] 00:00:00 [facility] Pneumococcal 2018-05-08 Completed [facility] Polysaccharide, 00:00:00 [place] [facility] PPSV23 (PNEUMOVAX) Branch Influenza High Dose 2018-05-08 Completed [facility] 00:00:00 [facility] Pneumococcal 2018-05-08 Completed [facility] Polysaccharide, 00:00:00 [place] [facility] PPSV23 (PNEUMOVAX) Branch Influenza High Dose 2018-05-08 Completed [facility] 00:00:00 [facility] Pneumococcal 2018-05-08 Completed [facility] Polysaccharide, 00:00:00 [place] [facility] PPSV23 (PNEUMOVAX) Branch Influenza High Dose 2018-05-08 Completed [facility] 00:00:00 [facility] Pneumococcal 2018-05-08 Completed [facility] Polysaccharide, 00:00:00 [place] [facility] PPSV23 (PNEUMOVAX) Branch Influenza High Dose 2018-05-08 Completed [facility] 00:00:00 [facility] Pneumococcal 2018-05-08 Completed [facility] Polysaccharide, 00:00:00 [place] [facility] PPSV23 (PNEUMOVAX) Branch Influenza High Dose 2018-05-08 Completed [facility] 00:00:00 [facility] Pneumococcal 2018-05-08 Completed [facility] Polysaccharide, 00:00:00 [place] [facility] PPSV23 (PNEUMOVAX) Branch Influenza High Dose 2018-05-08 Completed [facility] 00:00:00 [facility] Pneumococcal 2018-05-08 Completed [facility] Polysaccharide, 00:00:00 [place] [facility] PPSV23 (PNEUMOVAX) Branch Influenza High Dose 2018-05-08 Completed [facility] 00:00:00 [facility] Pneumococcal 2018-05-08 Completed [facility] Polysaccharide, 00:00:00 [place] [facility] PPSV23 (PNEUMOVAX) Branch Influenza High Dose 2018-05-08 Completed [facility] 00:00:00 [facility] Pneumococcal 2018-05-08 Completed [facility] Polysaccharide, 00:00:00 [place] [facility] PPSV23 (PNEUMOVAX) Branch Influenza High Dose 2018-05-08 Completed [facility] 00:00:00 [facility] Pneumococcal 2018-05-08 Completed [facility] Polysaccharide, 00:00:00 [place] [facility] PPSV23 (PNEUMOVAX) Branch Influenza High Dose 2018-05-08 Completed [facility] 00:00:00 [facility] Pneumococcal 2018-05-08 Completed [facility] Polysaccharide, 00:00:00 [place] [facility] PPSV23 (PNEUMOVAX) Branch Influenza High Dose 2018-05-08 Completed [facility] 00:00:00 [facility] Pneumococcal 2018-05-08 Completed [facility] Polysaccharide, 00:00:00 [place] [facility] PPSV23 (PNEUMOVAX) Branch Influenza High Dose 2018-05-08 Completed [facility] 00:00:00 [facility] Pneumococcal 2018-05-08 Completed [facility] Polysaccharide, 00:00:00 [place] [facility] PPSV23 (PNEUMOVAX) Branch Influenza High Dose 2018-05-08 Completed [facility] 00:00:00 [facility] Pneumococcal 2018-05-08 Completed [facility] Polysaccharide, 00:00:00 [place] [facility] PPSV23 (PNEUMOVAX) Branch Influenza High Dose 2018-05-08 Completed [facility] 00:00:00 [facility] Pneumococcal 2018-05-08 Completed [facility] Polysaccharide, 00:00:00 [place] [facility] PPSV23 (PNEUMOVAX) Branch Influenza High Dose 2018-05-08 Completed [facility] 00:00:00 [facility] Pneumococcal 2018-05-08 Completed [facility] Polysaccharide, 00:00:00 [place] [facility] PPSV23 (PNEUMOVAX) Branch Influenza High Dose 2018-05-08 Completed [facility] 00:00:00 [facility] Pneumococcal 2018-05-08 Completed [facility] Polysaccharide, 00:00:00 [place] [facility] PPSV23 (PNEUMOVAX) Branch Influenza High Dose 2018-05-08 Completed [facility] 00:00:00 [facility] Pneumococcal 2018-05-08 Completed [facility] Polysaccharide, 00:00:00 [place] [facility] PPSV23 (PNEUMOVAX) Branch Influenza High Dose 2018-05-08 Completed [facility] 00:00:00 [facility] Pneumococcal 2018-05-08 Completed [facility] Polysaccharide, 00:00:00 [place] [facility] PPSV23 (PNEUMOVAX) Branch Influenza High Dose 2018-05-08 Completed [facility] 00:00:00 [facility] Pneumococcal 2018-05-08 Completed [facility] Polysaccharide, 00:00:00 [place] [facility] PPSV23 (PNEUMOVAX) Branch Influenza High Dose 2018-05-08 Completed [facility] 00:00:00 [facility] Pneumococcal 2018-05-08 Completed [facility] Polysaccharide, 00:00:00 [place] [facility] PPSV23 (PNEUMOVAX) Branch Influenza High Dose 2018-05-08 Completed [facility] 00:00:00 [facility] Pneumococcal 2018-05-08 Completed [facility] Polysaccharide, 00:00:00 [place] [facility] PPSV23 (PNEUMOVAX) Branch Influenza High Dose 2018-05-08 Completed [facility] 00:00:00 [facility] Pneumococcal 2018-05-08 Completed [facility] Polysaccharide, 00:00:00 [place] [facility] PPSV23 (PNEUMOVAX) Branch Influenza High Dose 2018-05-08 Completed [facility] 00:00:00 [facility] Pneumococcal 2018-05-08 Completed [facility] Polysaccharide, 00:00:00 [place] [facility] PPSV23 (PNEUMOVAX) Branch Influenza High Dose 2018-05-08 Completed [facility] 00:00:00 [facility] Pneumococcal 2018-05-08 Completed [facility] Polysaccharide, 00:00:00 [place] [facility] PPSV23 (PNEUMOVAX) Branch Influenza High Dose 2018-05-08 Completed [facility] 00:00:00 [facility] Pneumococcal 2018-05-08 Completed [facility] Polysaccharide, 00:00:00 [place] [facility] PPSV23 (PNEUMOVAX) Branch Influenza High Dose 2018-05-08 Completed [facility] 00:00:00 [facility] Pneumococcal 2018-05-08 Completed [facility] Polysaccharide, 00:00:00 [place] [facility] PPSV23 (PNEUMOVAX) Branch Influenza High Dose 2018-05-08 Completed [facility] 00:00:00 [facility] Pneumococcal 2018-05-08 Completed [facility] f Polysaccharide, 00:00:00 [place] [facility] PPSV23 (PNEUMOVAX) Branch Influenza High Dose 2018-05-08 Completed [facility] 00:00:00 [facility] Pneumococcal 2018-05-08 Completed [facility] f Polysaccharide, 00:00:00 [place] [facility] PPSV23 (PNEUMOVAX) Branch Influenza High Dose 2018-05-08 Completed [facility] 00:00:00 [facility] Pneumococcal 2018-05-08 Completed [facility] f Polysaccharide, 00:00:00 [place] [facility] PPSV23 (PNEUMOVAX) Branch Influenza High Dose 2018-05-08 Completed [facility] 00:00:00 [facility] Pneumococcal 2018-05-08 Completed [facility] f Polysaccharide, 00:00:00 [place] [facility] PPSV23 (PNEUMOVAX) Branch Influenza High Dose 2018-05-08 Completed [facility] 00:00:00 [facility] Pneumococcal 2018-05-08 Completed [facility] Polysaccharide, 00:00:00 [place] [facility] PPSV23 (PNEUMOVAX) Branch Influenza High Dose 2018-05-08 Completed [facility] 00:00:00 [facility] Pneumococcal 2018-05-08 Completed [facility] Polysaccharide, 00:00:00 [place] [facility] PPSV23 (PNEUMOVAX) Branch Influenza High Dose 2018-05-08 Completed [facility] 00:00:00 [facility] Pneumococcal 2018-05-08 Completed [facility] Polysaccharide, 00:00:00 [place] [facility] PPSV23 (PNEUMOVAX) Branch Influenza High Dose 2018-05-08 Completed [facility] 00:00:00 [facility] Pneumococcal 2018-05-08 Completed [facility] Polysaccharide, 00:00:00 [place] [facility] PPSV23 (PNEUMOVAX) Branch Influenza High Dose 2018-05-08 Completed [facility] 00:00:00 [facility] Pneumococcal 2018-05-08 Completed [facility] o f Polysaccharide, 00:00:00 [place] [facility] PPSV23 (PNEUMOVAX) Branch Influenza High Dose 2018-05-08 Completed [facility] 00:00:00 [facility] Pneumococcal 2018-05-08 Completed [facility] f Polysaccharide, 00:00:00 [place] [facility] PPSV23 (PNEUMOVAX) Branch Influenza High Dose 2018-05-08 Completed [facility] 00:00:00 [facility] Pneumococcal 2018-05-08 Completed [facility] f Polysaccharide, 00:00:00 [place] [facility] PPSV23 (PNEUMOVAX) Branch Influenza High Dose 2018-05-08 Completed [facility] 00:00:00 [facility] Pneumococcal 2018-05-08 Completed [facility] o f Polysaccharide, 00:00:00 [place] [facility] PPSV23 (PNEUMOVAX) Branch Influenza High Dose 2018-05-08 Completed [facility] 00:00:00 [facility] Pneumococcal 2018-05-08 Completed [facility] f Polysaccharide, 00:00:00 [place] [facility] PPSV23 (PNEUMOVAX) Branch Influenza High Dose 2018-05-08 Completed [facility] 00:00:00 [facility] Pneumococcal 2018-05-08 Completed [facility] Polysaccharide, 00:00:00 [place] [facility] PPSV23 (PNEUMOVAX) Branch Pneumococcal 13 2016-12-05 Completed [facility] Conjugate, PCV13 00:00:00 [place] [facility] (Prevnar 13) Branch Influenza High Dose 2016-12-05 Completed [facility] 00:00:00 [facility] Pneumococcal 13 2016-12-05 Completed [facility] Conjugate, PCV13 00:00:00 [place] [facility] (Prevnar 13) Branch Influenza High Dose 2016-12-05 Completed [facility] 00:00:00 [facility] Pneumococcal 13 2016-12-05 Completed [facility] Conjugate, PCV13 00:00:00 [place] [facility] (Prevnar 13) Branch Influenza High Dose 2016-12-05 Completed [facility] 00:00:00 [facility] Pneumococcal 13 2016-12-05 Completed [facility] Conjugate, PCV13 00:00:00 [place] [facility] (Prevnar 13) Branch Influenza High Dose 2016-12-05 Completed [facility] 00:00:00 [facility] Pneumococcal 13 2016-12-05 Completed [facility] Conjugate, PCV13 00:00:00 [place] [facility] (Prevnar 13) Branch Influenza High Dose 2016-12-05 Completed [facility] 00:00:00 [facility] Pneumococcal 13 2016-12-05 Completed [facility] Conjugate, PCV13 00:00:00 [place] [facility] (Prevnar 13) Branch Influenza High Dose 2016-12-05 Completed [facility] 00:00:00 [facility] Pneumococcal 13 2016-12-05 Completed [facility] Conjugate, PCV13 00:00:00 [place] [facility] (Prevnar 13) Branch Influenza High Dose 2016-12-05 Completed [facility] 00:00:00 [facility] Pneumococcal 13 2016-12-05 Completed [facility] of Conjugate, PCV13 00:00:00 [place] [facility] (Prevnar 13) Branch Influenza High Dose 2016-12-05 Completed [facility] 00:00:00 [facility] Pneumococcal 13 2016-12-05 Completed [facility] Conjugate, PCV13 00:00:00 [place] [facility] (Prevnar 13) Branch Influenza High Dose 2016-12-05 Completed [facility] 00:00:00 [facility] Pneumococcal 13 2016-12-05 Completed [facility] Conjugate, PCV13 00:00:00 [place] [facility] (Prevnar 13) Branch Influenza High Dose 2016-12-05 Completed [facility] 00:00:00 [facility] Pneumococcal 13 2016-12-05 Completed [facility] Conjugate, PCV13 00:00:00 [place] [facility] (Prevnar 13) Branch Influenza High Dose 2016-12-05 Completed [facility] 00:00:00 [facility] Pneumococcal 13 2016-12-05 Completed [facility] Conjugate, PCV13 00:00:00 [place] [facility] (Prevnar 13) Branch Influenza High Dose 2016-12-05 Completed [facility] 00:00:00 [facility] Pneumococcal 13 2016-12-05 Completed [facility] Conjugate, PCV13 00:00:00 [place] [facility] (Prevnar 13) Branch Influenza High Dose 2016-12-05 Completed [facility] 00:00:00 [facility] Pneumococcal 13 2016-12-05 Completed [facility] Conjugate, PCV13 00:00:00 [place] [facility] (Prevnar 13) Branch Influenza High Dose 2016-12-05 Completed [facility] 00:00:00 [facility] Pneumococcal 13 2016-12-05 Completed [facility] Conjugate, PCV13 00:00:00 [place] [facility] (Prevnar 13) Branch Influenza High Dose 2016-12-05 Completed [facility] 00:00:00 [facility] Pneumococcal 13 2016-12-05 Completed [facility] Conjugate, PCV13 00:00:00 [place] [facility] (Prevnar 13) Branch Influenza High Dose 2016-12-05 Completed [facility] 00:00:00 [facility] Pneumococcal 13 2016-12-05 Completed [facility] Conjugate, PCV13 00:00:00 [place] [facility] (Prevnar 13) Branch Influenza High Dose 2016-12-05 Completed [facility] 00:00:00 [facility] Pneumococcal 13 2016-12-05 Completed [facility] Conjugate, PCV13 00:00:00 [place] [facility] (Prevnar 13) Branch Influenza High Dose 2016-12-05 Completed [facility] 00:00:00 [facility] Pneumococcal 13 2016-12-05 Completed [facility] Conjugate, PCV13 00:00:00 [place] [facility] (Prevnar 13) Branch Influenza High Dose 2016-12-05 Completed [facility] 00:00:00 [facility] Pneumococcal 13 2016-12-05 Completed [facility] Conjugate, PCV13 00:00:00 [place] [facility] (Prevnar 13) Branch Influenza High Dose 2016-12-05 Completed [facility] 00:00:00 [facility] Pneumococcal 13 2016-12-05 Completed [facility] Conjugate, PCV13 00:00:00 [place] [facility] (Prevnar 13) Branch Influenza High Dose 2016-12-05 Completed [facility] 00:00:00 [facility] Pneumococcal 13 2016-12-05 Completed [facility] Conjugate, PCV13 00:00:00 [place] [facility] (Prevnar 13) Branch Influenza High Dose 2016-12-05 Completed [facility] 00:00:00 [facility] Pneumococcal 13 2016-12-05 Completed [facility] of Conjugate, PCV13 00:00:00 [place] [facility] (Prevnar 13) Branch Influenza High Dose 2016-12-05 Completed [facility] 00:00:00 [facility] Pneumococcal 13 2016-12-05 Completed [facility] Conjugate, PCV13 00:00:00 [place] [facility] (Prevnar 13) Branch Influenza High Dose 2016-12-05 Completed [facility] 00:00:00 [facility] Pneumococcal 13 2016-12-05 Completed [facility] Conjugate, PCV13 00:00:00 [place] [facility] (Prevnar 13) Branch Influenza High Dose 2016-12-05 Completed [facility] 00:00:00 [facility] Pneumococcal 13 2016-12-05 Completed [facility] Conjugate, PCV13 00:00:00 [place] [facility] (Prevnar 13) Branch Influenza High Dose 2016-12-05 Completed [facility] 00:00:00 [facility] Pneumococcal 13 2016-12-05 Completed [facility] Conjugate, PCV13 00:00:00 [place] [facility] (Prevnar 13) Branch Influenza High Dose 2016-12-05 Completed [facility] 00:00:00 [facility] Pneumococcal 13 2016-12-05 Completed [facility] Conjugate, PCV13 00:00:00 [place] [facility] (Prevnar 13) Branch Influenza High Dose 2016-12-05 Completed [facility] 00:00:00 [facility] Pneumococcal 13 2016-12-05 Completed [facility] of Conjugate, PCV13 00:00:00 [place] [facility] (Prevnar 13) Branch Influenza High Dose 2016-12-05 Completed [facility] 00:00:00 [facility] Pneumococcal 13 2016-12-05 Completed [facility] of Conjugate, PCV13 00:00:00 [place] [facility] (Prevnar 13) Branch Influenza High Dose 2016-12-05 Completed [facility] 00:00:00 [facility] Pneumococcal 13 2016-12-05 Completed [facility] Conjugate, PCV13 00:00:00 [place] [facility] (Prevnar 13) Branch Influenza High Dose 2016-12-05 Completed [facility] 00:00:00 [facility] Pneumococcal 13 2016-12-05 Completed [facility] of Conjugate, PCV13 00:00:00 [place] [facility] (Prevnar 13) Branch Influenza High Dose 2016-12-05 Completed [facility] 00:00:00 [facility] Pneumococcal 13 2016-12-05 Completed [facility] Conjugate, PCV13 00:00:00 [place] [facility] (Prevnar 13) Branch Influenza High Dose 2016-12-05 Completed [facility] 00:00:00 [facility] Pneumococcal 13 2016-12-05 Completed [facility] Conjugate, PCV13 00:00:00 [place] [facility] (Prevnar 13) Branch Influenza High Dose 2016-12-05 Completed [facility] 00:00:00 [facility] Pneumococcal 13 2016-12-05 Completed [facility] of Conjugate, PCV13 00:00:00 [place] [facility] (Prevnar 13) Branch Influenza High Dose 2016-12-05 Completed [facility] 00:00:00 [facility] Pneumococcal 13 2016-12-05 Completed [facility] Conjugate, PCV13 00:00:00 [place] [facility] (Prevnar 13) Branch Influenza High Dose 2016-12-05 Completed [facility] 00:00:00 [facility] Pneumococcal 13 2016-12-05 Completed [facility] of Conjugate, PCV13 00:00:00 [place] [facility] (Prevnar 13) Branch Influenza High Dose 2016-12-05 Completed [facility] 00:00:00 [facility] Pneumococcal 13 2016-12-05 Completed [facility] of Conjugate, PCV13 00:00:00 [place] [facility] (Prevnar 13) Branch Influenza High Dose 2016-12-05 Completed [facility] 00:00:00 [facility] Pneumococcal 13 2016-12-05 Completed [facility] of Conjugate, PCV13 00:00:00 [place] [facility] (Prevnar 13) Branch Influenza High Dose 2016-12-05 Completed [facility] 00:00:00 [facility] Pneumococcal 13 2016-12-05 Completed [facility] of Conjugate, PCV13 00:00:00 [place] [facility] (Prevnar 13) Branch Influenza High Dose 2016-12-05 Completed [facility] 00:00:00 [facility] Pneumococcal 13 2016-12-05 Completed [facility] of Conjugate, PCV13 00:00:00 [place] [facility] (Prevnar 13) Branch Influenza High Dose 2016-12-05 Completed [facility] 00:00:00 [facility] Pneumococcal 13 2016-12-05 Completed [facility] Conjugate, PCV13 00:00:00 [place] [facility] (Prevnar 13) Branch Influenza High Dose 2016-12-05 Completed [facility] 00:00:00 [facility] Pneumococcal 13 2016-12-05 Completed [facility] of Conjugate, PCV13 00:00:00 [place] [facility] (Prevnar 13) Branch Influenza High Dose 2016-12-05 Completed [facility] 00:00:00 [facility] Pneumococcal 13 2016-12-05 Completed [facility] of Conjugate, PCV13 00:00:00 [place] [facility] (Prevnar 13) Branch Influenza High Dose 2016-12-05 Completed [facility] 00:00:00 [facility] Pneumococcal 13 2016-12-05 Completed [facility] of Conjugate, PCV13 00:00:00 [place] [facility] (Prevnar 13) Branch Influenza High Dose 2016-12-05 Completed [facility] 00:00:00 [facility] Pneumococcal 13 2016-12-05 Completed [facility] of Conjugate, PCV13 00:00:00 [place] [facility] (Prevnar 13) Branch Influenza High Dose 2016-12-05 Completed [facility] 00:00:00 [facility] Pneumococcal 13 2016-12-05 Completed [facility] of Conjugate, PCV13 00:00:00 [place] [facility] (Prevnar 13) Branch Influenza High Dose 2016-12-05 Completed [facility] 00:00:00 [facility] Pneumococcal 13 2016-12-05 Completed [facility] of Conjugate, PCV13 00:00:00 [place] [facility] (Prevnar 13) Branch Influenza High Dose 2016-12-05 Completed [facility] 00:00:00 [facility] Pneumococcal 13 2016-12-05 Completed [facility] of Conjugate, PCV13 00:00:00 [place] [facility] (Prevnar 13) Branch Influenza High Dose 2016-12-05 Completed [facility] 00:00:00 [facility] Pneumococcal 13 2016-12-05 Completed [facility] Conjugate, PCV13 00:00:00 [place] [facility] (Prevnar 13) Branch Influenza High Dose 2016-12-05 Completed [facility] 00:00:00 [facility] Pneumococcal 13 2016-12-05 Completed [facility] of Conjugate, PCV13 00:00:00 [place] [facility] (Prevnar 13) Branch Influenza High Dose 2016-12-05 Completed [facility] 00:00:00 [facility] Pneumococcal 13 2016-12-05 Completed [facility] Conjugate, PCV13 00:00:00 [place] [facility] (Prevnar 13) Branch Influenza High Dose 2016-12-05 Completed [facility] 00:00:00 [facility] Pneumococcal 13 2016-12-05 Completed [facility] Conjugate, PCV13 00:00:00 [place] [facility] (Prevnar 13) Branch Influenza High Dose 2016-12-05 Completed [facility] 00:00:00 [facility] Pneumococcal 13 2016-12-05 Completed [facility] Conjugate, PCV13 00:00:00 [place] [facility] (Prevnar 13) Branch Influenza High Dose 2016-12-05 Completed [facility] 00:00:00 [facility] Pneumococcal 13 2016-12-05 Completed [facility] Conjugate, PCV13 00:00:00 [place] [facility] (Prevnar 13) Branch Influenza High Dose 2016-12-05 Completed [facility] 00:00:00 [facility] Pneumococcal 13 2016-12-05 Completed [facility] of Conjugate, PCV13 00:00:00 [place] [facility] (Prevnar 13) Branch Influenza High Dose 2016-12-05 Completed [facility] 00:00:00 [facility] Pneumococcal 13 2016-12-05 Completed [facility] of Conjugate, PCV13 00:00:00 [place] [facility] (Prevnar 13) Branch Influenza High Dose 2016-12-05 Completed [facility] 00:00:00 [facility] Pneumococcal 13 2016-12-05 Completed [facility] Conjugate, PCV13 00:00:00 [place] [facility] (Prevnar 13) Branch Influenza High Dose 2016-12-05 Completed Unive rsity of 00:00:00 [facility] Pneumococcal 13 2016-12-05 Completed Universit y of Conjugate, PCV13 00:00:00 [place] [facility] (Prevnar 13) Branch Influenza High Dose 2016-12-05 Completed Unive rsity of 00:00:00 [facility] Pneumococcal 13 2016-12-05 Completed Universit y of Conjugate, PCV13 00:00:00 [place] [facility] (Prevnar 13) Branch Influenza High Dose 2016-12-05 Completed Unive rsity of 00:00:00 [facility] Pneumococcal 13 2016-12-05 Completed Universit y of Conjugate, PCV13 00:00:00 [place] [facility] (Prevnar 13) Branch Influenza High Dose 2016-12-05 Completed Unive rsity of 00:00:00 [facility] Pneumococcal 13 2016-12-05 Completed Universit y of Conjugate, PCV13 00:00:00 [place] [facility] (Prevnar 13) Branch Influenza High Dose 2016-12-05 Completed Unive rsity of 00:00:00 [facility] Branch Pneumococcal 13 2016-12-05 Completed Universit y of Conjugate, PCV13 00:00:00 [place] [facility] (Prevnar 13) Branch Influenza High Dose 2016-12-05 Completed Unive rsity of 00:00:00 [facility] Pneumococcal 13 2016-12-05 Completed Universit y of Conjugate, PCV13 00:00:00 [place] [facility] (Prevnar 13) Branch Influenza High Dose 2016-12-05 Completed Unive rsity of 00:00:00 [facility] Branch Pneumococcal 13 2016-12-05 Completed Universit y of Conjugate, PCV13 00:00:00 [place] [facility] (Prevnar 13) Branch Influenza High Dose 2016-12-05 Completed Unive rsity of 00:00:00 [facility] Branch Pneumococcal 13 2016-12-05 Completed Universit y of Conjugate, PCV13 00:00:00 [place] [facility] (Prevnar 13) Branch Influenza High Dose 2016-12-05 Completed Unive rsity of 00:00:00 [facility] Branch Pneumococcal 13 2016-12-05 Completed Universit y of Conjugate, PCV13 00:00:00 [place] [facility] (Prevnar 13) Branch Influenza High Dose 2016-12-05 Completed Unive rsity of 00:00:00 [facility] Branch Pneumococcal 13 2016-12-05 Completed Universit y of Conjugate, PCV13 00:00:00 [place] [facility] (Prevnar 13) Branch Influenza High Dose 2016-12-05 Completed Unive rsity of 00:00:00 [facility] Pneumococcal 13 2016-12-05 Completed Universit y of Conjugate, PCV13 00:00:00 [place] [facility] (Prevnar 13) Branch Influenza High Dose 2016-12-05 Completed Unive rsity of 00:00:00 [facility] Pneumococcal 13 2016-12-05 Completed Universit y of Conjugate, PCV13 00:00:00 [place] [facility] (Prevnar 13) Branch Influenza High Dose 2016-12-05 Completed Unive rsity of 00:00:00 [facility] Pneumococcal 13 2016-12-05 Completed Universit y of Conjugate, PCV13 00:00:00 [place] [facility] (Prevnar 13) Branch Influenza High Dose 2016-12-05 Completed Unive rsity of 00:00:00 [facility] Branch Pneumococcal 13 2016-12-05 Completed Universit y of Conjugate, PCV13 00:00:00 [place] [facility] (Prevnar 13) Branch Influenza High Dose 2016-12-05 Completed Unive rsity of 00:00:00 [facility] Branch Pneumococcal 13 2016-12-05 Completed Universit y of Conjugate, PCV13 00:00:00 [place] [facility] (Prevnar 13) Branch Influenza High Dose 2016-12-05 Completed Unive rsity of 00:00:00 [facility] Pneumococcal 13 2016-12-05 Completed Universit y of Conjugate, PCV13 00:00:00 [place] [facility] (Prevnar 13) Branch Influenza High Dose 2016-12-05 Completed Unive rsity of 00:00:00 [facility] Pneumococcal 13 2016-12-05 Completed Universit y of Conjugate, PCV13 00:00:00 [place] [facility] (Prevnar 13) Branch Influenza High Dose 2016-12-05 Completed Unive rsity of 00:00:00 [facility] Pneumococcal 13 2016-12-05 Completed Universit y of Conjugate, PCV13 00:00:00 [place] [facility] (Prevnar 13) Branch Influenza High Dose 2016-12-05 Completed Unive rsity of 00:00:00 [facility] Pneumococcal 13 2016-12-05 Completed Universit y of Conjugate, PCV13 00:00:00 [place] [facility] (Prevnar 13) Branch Influenza High Dose 2016-12-05 Completed Unive rsity of 00:00:00 [facility] Pneumococcal 13 2016-12-05 Completed Universit y of Conjugate, PCV13 00:00:00 [facility] dical (Prevnar 13) Branch Influenza High Dose 2016-12-05 Completed Unive rsity of 00:00:00 [facility] influenza virus 2015-01-20 Completed [facility] vaccine, 21:59:00 inactivated influenza virus 2015-01-20 Completed [facility] vaccine, 21:59:00 inactivated influenza virus 2015-01-20 Completed [facility] vaccine, 21:59:00 inactivated influenza virus 2015-01-20 Completed [facility] vaccine, 21:59:00 inactivated influenza virus 2015-01-20 Completed [facility] vaccine, 21:59:00 inactivated Hx influenza 2012-12-29 [...] Completed [facility] vaccine-unspecified 14:50:54 <sup>2</sup> influenza virus 2012-12-29 Completed [facility] vaccine, 05:00:00 inactivated<sup>2</ sup> influenza virus 2012-12-29 Completed [facility] vaccine, 05:00:00 inactivated<sup>1</ sup> influenza virus 2012-12-29 Completed [facility] vaccine, 05:00:00 inactivated<sup>1</ sup> influenza virus 2012-12-29 Completed [facility] vaccine, 05:00:00 inactivated<sup>2</ sup> influenza virus 2012-12-29 Completed [facility] vaccine, 05:00:00 inactivated<sup>1</ sup> influenza virus 2012-12-29 Completed [facility] vaccine, 05:00:00 inactivated<sup>2</ sup> influenza virus 2012-12-29 Completed [facility] vaccine, 05:00:00 inactivated<sup>1</ sup> influenza virus 2012-12-29 Completed [facility] vaccine, 05:00:00 inactivated<sup>2</ sup> influenza virus 2012-12-29 Completed [facility] vaccine, 05:00:00 inactivated<sup>2</ sup> influenza virus 2012-12-29 Completed [facility] vaccine, 05:00:00 inactivated<sup>1</ sup> pneumococcal 2011-11-23 Completed [facility] 23-valent 14:50:54 vaccine<sup>3</sup> pneumococcal 2011-11-23 Completed [facility] 23-valent 14:50:54 vaccine<sup>3</sup> pneumococcal 2011-11-23 Completed [facility] 23-valent 14:50:54 vaccine<sup>3</sup> pneumococcal 2011-11-23 Completed [facility] 23-valent 14:50:54 vaccine<sup>3</sup> pneumococcal 2011-11-23 Completed [facility] ahn 23-valent 14:50:54 vaccine<sup>3</sup> Vital Signs Vital Name Observation Time Observation Value Comments Source Systolic blood 2022-04-16 135 mm[Hg] University of pressure 16:11:00 [facility] Diastolic blood 2022-04-16 70 mm[Hg] University o f pressure 16:11:00 [facility] Heart rate 2022-04-16 53 /min University of 16:11:00 [facility] Body temperature 2022-04-16 36.17 Erna University of 16:11:00 [facility] Body height 2022-04-16 182.9 cm University of 16:11:00 [facility] Body weight 2022-04-16 88.179 kg University of 16:11:00 [facility] BMI 2022-04-16 26.37 kg/m2 University of 16:11:00 [facility] Oxygen saturation 2022-04-16 96 /min University of in Arterial blood 16:11:00 [facility] christa by Pulse oximetry Branch Systolic blood 2022-04-12 137 mm[Hg] University of pressure 19:48:00 [facility] Diastolic blood 2022-04-12 78 mm[Hg] University o f pressure 19:48:00 [facility] Heart rate 2022-04-12 72 /min University of 19:48:00 [facility] Body temperature 2022-04-12 36 Erna University of 19:48:00 [facility] Respiratory rate 2022-04-12 18 /min University of 19:48:00 [facility] Body height 2022-04-12 182.9 cm University of 19:48:00 [facility] Body weight 2022-04-12 90.13 kg University of 19:48:00 [facility] BMI 2022-04-12 26.95 kg/m2 University of 19:48:00 [facility] Oxygen saturation 2022-04-12 95 /min University of in Arterial blood 19:48:00 [place] [facility] by Pulse oximetry Branch Systolic blood 2022-03-08 182 mm[Hg] University of pressure 22:07:00 [facility] Diastolic blood 2022-03-08 78 mm[Hg] University o f pressure 22:07:00 [facility] Heart rate 2022-03-08 67 /min University of 22:05:00 [facility] Body temperature 2022-03-08 36.28 Erna University of 20:08:00 [facility] Respiratory rate 2022-03-08 18 /min University of 20:08:00 [facility] Body height 2022-03-08 182.9 cm University of 20:08:00 [facility] Body weight 2022-03-08 86.818 kg University of 20:08:00 [facility] BMI 2022-03-08 25.96 kg/m2 University of 20:08:00 [facility] Oxygen saturation 2022-03-08 97 /min University of in Arterial blood 20:08:00 [place] [facility] by Pulse oximetry Branch Systolic blood 2022-01-08 188 mm[Hg] University of pressure 16:01:00 [facility] Diastolic blood 2022-01-08 66 mm[Hg] University o f pressure 16:01:00 [facility] Heart rate 2022-01-08 54 /min University of 16:01:00 [facility] Respiratory rate 2022-01-08 19 /min University of 16:01:00 [facility] Body height 2022-01-08 182.9 cm University of 16:01:00 [facility] Body weight 2022-01-08 89.858 kg University of 16:01:00 [facility] BMI 2022-01-08 26.87 kg/m2 University of 16:01:00 [facility] Oxygen saturation 2022-01-08 96 /min University of in Arterial blood 16:01:00 [facility] christa by Pulse oximetry Branch Systolic blood 2021-12-06 118 mm[Hg] University of pressure 18:30:00 [facility] Branch Diastolic blood 2021-12-06 76 mm[Hg] University o f pressure 18:30:00 [facility] Heart rate 2021-12-06 66 /min University of 18:26:00 [facility] Body temperature 2021-12-06 36.33 Erna University of 18:26:00 [facility] Respiratory rate 2021-12-06 18 /min University of 18:26:00 [facility] Body height 2021-12-06 182.9 cm University of 18:26:00 [facility] Body weight 2021-12-06 88.179 kg University of 18:26: [facility] BMI 2021-12-06 26.37 kg/m2 University of 18:26:00 [facility] Oxygen saturation 2021-12-06 96 /min University of in Arterial blood 18:26:00 [facility] by Pulse oximetry Branch Systolic blood 2021-12-05 138 mm[Hg] manual University of pressure 15:00:00 [facility] Branch Diastolic blood 2021-12-05 68 mm[Hg] manual University o f pressure 15:00:00 [facility] Heart rate 2021-12-05 58 /min University of 15:00:00 [facility] Branch Respiratory rate 2021-12-05 22 /min University of 15:00:00 [facility] Body weight 2021-12-05 88.633 kg University of 15:00:00 [facility] BMI 2021-12-05 26.50 kg/m2 University of 15:00:00 [facility] Oxygen saturation 2021-12-05 97 /min arrived on 2l/m Univers ity of in Arterial blood 15:00:00 [place], took off; 6MW [facility] by Pulse oximetry done RA Branch Systolic blood 2021-11-30 120 mm[Hg] manual University of pressure 14:00:00 [facility] Branch Diastolic blood 2021-11-30 66 mm[Hg] manual University o f pressure 14:00:00 [facility] Heart rate 2021-11-30 68 /min University of 14:00:00 [facility] Respiratory rate 2021-11-30 22 /min University of 14:00:00 [facility] Body weight 2021-11-30 90.311 kg University of 14:00:00 [facility] BMI 2021-11-30 27.00 kg/m2 University of 14:00:00 [facility] Oxygen saturation 2021-11-30 94 /min arrived on RA; Universi ty of in Arterial blood 14:00:00 exercised on RA [facility] edical by Pulse oximetry Branch Systolic blood 2021-11-28 118 mm[Hg] manual University of pressure 15:00:00 [facility] Branch Diastolic blood 2021-11-28 60 mm[Hg] manual University o f pressure 15:00:00 [facility] Heart rate 2021-11-28 63 /min University of 15:00:00 [facility] Branch Respiratory rate 2021-11-28 22 /min University of 15:00:00 [facility] Body weight 2021-11-28 90.084 kg University of 15:00:00 [facility] BMI 2021-11-28 26.94 kg/m2 University of 15:00:00 [facility] Oxygen saturation 2021-11-28 97 /min RA University of in Arterial blood 15:00:00 [facility] christa by Pulse oximetry Branch Systolic blood 2021-11-24 130 mm[Hg] manual University of pressure 16:00:00 [facility] Branch Diastolic blood 2021-11-24 58 mm[Hg] manual University o f pressure 16:00:00 [facility] Heart rate 2021-11-24 55 /min University of 16:00:00 [facility] Respiratory rate 2021-11-24 20 /min University of 16:00:00 [facility] Body weight 2021-11-24 92.897 kg University of 16:00:00 [facility] BMI 2021-11-24 27.78 kg/m2 University of 16:00:00 [facility] Oxygen saturation 2021-11-24 95 /min University of in Arterial blood 16:00:00 [facility] by Pulse oximetry Branch Systolic blood 2021-11-21 122 mm[Hg] manual University of pressure 15:00:00 [facility] Branch Diastolic blood 2021-11-21 54 mm[Hg] manual University o f pressure 15:00:00 [facility] Heart rate 2021-11-21 52 /min University of 15:00:00 [facility] Respiratory rate 2021-11-21 20 /min University of 15:00:00 [facility] Body weight 2021-11-21 92.897 kg University of 15:00:00 [facility] BMI 2021-11-21 27.78 kg/m2 University of 15:00:00 [facility] Oxygen saturation 2021-11-21 94 /min due to walk into [facility] sity of in Arterial blood 15:00:00 ID, wore 2 l/m [place] [facility] by Pulse oximetry pulsed [place]; Branch exercised on RA Systolic blood 2021-11-16 120 mm[Hg] manual; frequent Universit y of pressure 15:00:00 missed beats; [facility] asymptomatic Branch Diastolic blood 2021-11-16 58 mm[Hg] manual; frequent Universi ty of pressure 15:00:00 missed beats; [facility] asymptomatic Branch Heart rate 2021-11-16 58 /min [facility] 15:00:00 [facility] Respiratory rate 2021-11-16 20 /min [facility] 15:00:00 [facility] Body weight 2021-11-16 93.895 kg [facility] 15:00:00 [facility] BMI 2021-11-16 28.07 kg/m2 [facility] 15:00:00 [facility] Oxygen saturation 2021-11-16 89 /min arrived on 2l/m Univers ity of in Arterial blood 15:00:00 pulsed [place]; con't [place] [facility] by Pulse oximetry want to exercise Branch on RA; encouraged PLB Temperature Oral 2019-01-17 97.9 F [facility] rmann (F) 01:21:00 Systolic (mm Hg) 2019-01-17 [facility] rmann 01:21:00 Diastolic (mm Hg) 2019-01-17 [facility] ermann 01:21:00 Height 2019-01-17 182.88 cm [facility] 01:18:00 Weight 2019-01-17 [facility] 01:18:00 BMI Calculated 2019-01-17 [facility] 01:18:00 Respitory Rate 2019-01-17 [facility] 01:14:00 Respitory Rate 2019-01-17 [facility] 00:10:00 Respitory Rate 2019-01-17 [facility] 00:05:00 Systolic (mm Hg) 2019-01-17 [facility] rmann 00:05:00 Diastolic (mm Hg) 2019-01-17 [facility] ermann 00:05:00 Temperature Oral 2019-01-17 98 F [facility] rmann (F) 00:05:00 Systolic (mm Hg) 2019-01-16 [facility] rmann 21:00:00 Diastolic (mm Hg) 2019-01-16 [facility] ermann 21:00:00 Heart Rate 2019-01-16 [facility] 20:16:00 Temperature Oral 2019-01-16 98.0 F [facility] rmann (F) 20:16:00 Height 2019-01-16 182.88 cm [facility] 20:16:00 BMI Calculated 2019-01-16 [facility] 20:16:00 Weight 2019-01-16 [facility] 20:16:00 Systolic (mm Hg) 2015-09-21 [facility] Denny rmann 16:15:00 Diastolic (mm Hg) 2015-09-21 [facility] ermann 16:15:00 Respitory Rate 2015-09-21 [facility] 16:15:00 Systolic (mm Hg) 2015-09-21 [facility] rmann 16:00:00 Diastolic (mm Hg) 2015-09-21 [facility] 16:00:00 Respitory Rate 2015-09-21 [facility] 16:00:00 Systolic (mm Hg) 2015-09-21 [facility] Denny rmann 15:45:00 Diastolic (mm Hg) 2015-09-21 [facility] ermann 15:45:00 Respitory Rate 2015-09-21 [facility] 15:45:00 Heart Rate 2015-09-19 [facility] 18:16:00 Temperature Oral 2015-09-19 98.1 F Ivana Baldwin rmann (F) 18:16:00 Weight 2015-09-19 [facility] 18:16:00 Height 2015-09-19 182.88 cm [facility] 18:16:00 BMI Calculated 2015-09-19 [facility] 18:16:00 Weight 2015-07-20 [facility] 13:06:00 BMI Calculated 2015-07-20 [facility] 13:06:00 Height 2015-07-20 185.42 cm [facility] 13:06:00 Procedures Procedure Date / Time Performing Clinician Source Performed AUTHORIZATION FOR RELEASE 2022-05-30 05:01:00 Doctor Eliza, [facility] AUTHORIZATION FOR RELEASE 2022 06:01:00 Doctor Sandeepigned, [facility] PHYSICIAN ORDERS 2022-04-16 06:01:00 Doctor Unassigned, [facility] DME/SUPPLY JUSTIFICATION 2022-04-06 06:01:00 Doctor Eliza, [facility] ASSIGNMENT OF BENEFITS 2022-03-08 19:44:47 Doctor Unassigned [facility] PHYSICIAN ORDERS 2022-02-12 06:01:00 Doctor Kemissigned, [facility] MEDICATION CORRESPONDENCE 2022-02-05 06:01:00 Doctor Unassigned, [facility] MEDICATION CORRESPONDENCE 2021-12-22 05:01:00 Doctor Unasscatalina, [facility] FLU 2021-12-06 19:32:57 Liborio Hall [facility] VACC(),65+YR,0.5 Medica l Branch ML,IM,ADJUVANTED,QUAD(FLUA D) PULMONARY REHAB ITP REPORT 2021-12-05 20:50:00 Doctor Unasscatalina , [facility] FUNGUS (ROUTINE) CULTURE 2021-11-28 19:49:00 Neeta Del Toro [facility] PULMONARY REHAB SESSION 2021-11-24 05:00:00 Doctor UnassDelroy arnold [facility] REPORT [facility] NO SHOW OR MISSED 2021-11-02 05:01:00 Doctor Carlos Kay [facility] APPOINTMENT POLICY [facility] ACKNOWLEDGEMENT Colonoscopy<sup>1, 2</sup> 2015-09-21 05:00:00 [facility] Diabetic foot examination 2014-09-17 05:00:00 [facility] [place] Operation<sup>3</sup> 2014-07-02 05:00:00 Pretty al [place] Appendectomy [facility] [place] Cervical laminoplasty with [facility] decompression of spinal cord Encounters Start End Encounter Admission Attending Care Care Encounter Source Date/Time Date/Time Type Type Clinicians Facility Department ID 2020-12-31 Emergency [facility] [id number] Univers 13:27:36 [facility] 2020-12-30 Emergency [facility] [id number] Univers 15:37:20 [facility] 2022-10-15 2022-10-15 Outpatient R TESS [facility] [id number] Univers 11:00:00 11:00:00 DARIANA carlos [facility] 2022-08-10 2022-08-10 Outpatient R ISABEL [facility] [id number] Univers 13:20:00 13:20:00 LIBORIO [facility] 2022-07-09 2022-07-09 Outpatient R YA QUINTANA [facility] [id number] Univers 10:00:00 10:00:00 YA QUINTANA i ty of [facility] 2022-06-20 2022-06-20 [facility] [id number] Univers 00:00:00 00:00:00 Liborio RODRIGUEZ [id number] i ty [id number] [id number] Ca dical NAL 044 [facility] 2022-06-03 2022-06-03 Refill [facility] [id number] [id number] Univers 00:00:00 00:00:00 Liborio RODRIGUEZ [id number] i ty [id number] [id number] Ca dical NAL 044 [facility] 2022-06-02 2022-06-02 [facility] [id number] Univers 00:00:00 00:00:00 Jaxon TREJO [id number] i ty of [facility] [id number] [id number] [facility] 144 Rosine 2022-05-30 2022-05-30 Orders Doctor REYES 1.2.840.114 [id number] Univers 00:00:00 00:00:00 Only Unassigned, TOYA [id number] ity of [facility] [id number] Adel[place] as [phone] [facility] 009 Rosine 2022 2022 Orders Doctor REYES [id number] Univers 00:00:00 00:00:00 Only Unassigned, TOYA [id number] ity of [facility] [id number] Adelso as [id number] [facility] 009 Rosine 2022-04-27 2022-04-27 Telephone [facility] [id number] Univers 00:00:00 00:00:00 Liborio RODRIGUEZ [id number] i ty [id number] [phone] Ca dical NAL 044 [facility] 2022-04-16 2022-04-16 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 And 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 2, Adc Lab [facility] 1.2.840.114 [id number] Univers 10:45:00 11:00:00 Visit Dariana Giron [id number] ity of [place] [id number] [place] PROFESSIO [id number] Ca dical NAL 353 [facility] 2022-04-16 2022-04-16 Outpatient R SAYRA [facility] [id number] Univers 10:45:00 10:45:00 VINITHA ity [facility] 2022-04-16 2022-04-16 Office Tess [facility] 1.2.840.114 [id number] Univers 10:20:00 10:40:00 Visit Dariana RODRIGUEZ [id number] ity of [facility] [id number] [id number] Ca dical NAL 059 [facility] 2022-04-16 2022-04-16 Orders Doctor REYES 1.2.840.114 [id number] Univers 00:00:00 00:00:00 Only Unassigned, TOYA 350.1.13.10 ity of [facility] [id number] Adelso as [phone] [facility] 009 Rosine 2022-04-13 2022-04-13 Nurse Annette PULLIAM 1.2.840.114 [id number] Univers 00:00:00 00:00:00 Triage TOYA Fernandez [id number] ity of [facility] [id number] Ad[place] as [id number] [facility] 019 Rosine 2022-04-12 2022-04-12 Office Isabel [facility] 1.2.840.114 [id number] Univers 13:00:00 13:40:00 Visit Liborio RODRIGUEZ 350.1.13.10 i ty of [id number] [id number] Ca dical NAL 044 [facility] 2022-04-12 2022-04-12 [id number] Univers 13:00:00 13:00:00 LIBORIO aranda [facility] 2022-04-11 2022-04-11 Nurse REYES Núñez 1.2.840.114 [id number] Univers 00:00:00 00:00:00 Triage Chessica T TOYA [id number] ity of [facility] [id number] Adelso as [phone] [facility] 019 Rosine 2022-04-10 2022-04-10 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 And 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 2, Adc Lab [facility] 1.2.840.114 [id number] Univers 14:30:00 14:45:00 Visit Liborio Hall 350.1.13.10 ity of [place] [phone] [facility] 353 [facility] 2022-04-10 2022-04-10 [facility] [id number] Univers 14:30:00 14:30:00 LIBORIO rosi [facility] 2022-04-10 2022-04-10 Telephone [facility] 1.2.840.114 [id number] Univers 00:00:00 00:00:00 Liborio RODRIGUEZ 350.1.13.10 i ty of [place] [id number] Ca dical NAL 044 [facility] 2022-04-06 2022-04-06 Telephone [facility] 1.2.840.114 1 [id number] Univers 00:00:00 00:00:00 Liborio RODRIGUEZ 350.1.13.10 i ty of [place] [phone] Ca dical NAL 044 [facility] 2022-04-06 2022-04-06 Orders Doctor PULLIAM 1.2.840.114 [id number] Univers 00:00:00 00:00:00 Only Unassigned, TOYA 350.1.13.10 ity of [place] [facility] 4.2.7.2.686 Adelso as [phone] [address] 2022-04-05 2022-04-05 Telephone [facility] 1.2.506.579 [id number] Univers 00:00:00 00:00:00 Ya RODRIGUEZ 350.1.13.10 i ty of [place] [place] [facility] 4.2.7.2.[place] [phone] Ca dictx NAL 085 [facility] 2022-03-27 2022-03-27 [facility] 1.2.840.114 [id number] Univers 00:00:00 00:00:00 Liborio RODRIGUEZ 350.1.13.10 i ty of [place] [facility] 4.2.7.2.[place] [id number] Ca dic[address] 2022-03-26 2022-03-26 [place] [facility] 1.2.840.114 1 [id number] Univers 00:00:00 00:00:00 Liborio RODRIGUEZ 350.1.13.10 i ty of [place] [facility] 4.2.7.2.[place] [phone] Ca dictx NAL [address] [place] [address] 2022-03-19 2022-03-19 [facility] 1.2.840.114 [id number] Univers 00:00:00 00:00:00 Liborio RODRIGUEZ 350.1.13.10 i ty of [place] [facility] 4.2.7.2.[place] [phone] Ca dic[address] 2022-03-11 2022-03-11 [facility] 1.2.840.114 [id number] Univers 00:00:00 00:00:00 Ya RODRIGUEZ 350.1.13.10 i ty of [place] [facility] 4.2.7.2.[place] [phone] Ca dictx NAL 085 [facility] 2022-03-08 2022-03-08 Outpatient R ISABEL [facility] [id number] Univers 14:40:00 16:00:29 LIBORIO aranda [facility] 2022-03-08 2022-03-08 Office [facility] 1.2.840.114 [id number] Univers 14:40:00 16:00:29 Visit Liborio JUNIOR 350.1.13.10 i ty of [place] [phone] Ca dical NAL 044 [facility] 2022-03-08 2022-03-08 Office [facility] 1.2.840.114 [id number] Univers 14:00:00 14:20:00 Visit Liborio JUNIOR 350.1.13.10 i ty of [place] 4[place]2.7.2.[place] [phone] Ca dical NAL 044 [facility] 2022-03-08 2022-03-08 Orders Doctor REYES 1.2.840.114 [id number] Univers 00:00:00 00:00:00 Only Unassigned, TOYA 350.1.13.10 ity of [place] [facility] 4.2.7.2.686 Adelso as [phone] [address] 2022-03-05 2022-03-05 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 And 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 2, Adc Lab [facility] 1.2.840.114 [id number] Univers 13:00:00 13:15:00 Visit Liborio Hall 350.1.13.10 ity of [place] [facility] 4.2.7.2.[place] [phone] Ca dictx NAL 353 [facility] 2022-03-05 2022-03-05 Outpatient R ISABEL [facility] [id number] Univers 13:00:00 13:00:00 LIBORIO ity of [facility] 2022-02-20 2022-02-20 Refill [facility] 1.2.840.114 [id number] Univers 00:00:00 00:00:00 Liborio RODRIGUEZ 350.1.13.10 i ty of [place] [phone] Ca dical NAL 044 [facility] 2022-02-12 2022-02-12 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 And 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 2, Adc Lab [facility] 1.2.840.114 [id number] Univers 14:30:00 14:45:00 Visit Maral Garsia 350.1.13.10 ity of [place] [facility] 4.2.7.2.[place] [phone] Ca dical NAL 353 [facility] 2022-02-12 2022-02-12 Outpatient R SAYRA [facility] [id number] Univers 14:30:00 14:30:00 VINITHA ity of [facility] 2022-02-12 2022-02-12 Refill [facility] 1.2.840.114 [id number] Univers 00:00:00 00:00:00 Ya RODRIGUEZ 350.1.13.10 i ty of [place] [phone] Ca dical NAL 085 [facility] 2022-02-12 2022-02-12 Orders Doctor REYES 1.2.840.114 [id number] Univers 00:00:00 00:00:00 Only Unassigned, TOYA 350.1.13.10 ity of [place] [facility] 4.2.7.2.686 Adelso as [phone] [address] 2022-02-12 2022-02-12 Refill [facility] 1.2.840.114 [id number] Univers 00:00:00 00:00:00 Liborio RODRIGUEZ 350.1.13.10 i ty of [place] [id number] Ca dical NAL 044 [facility] 2022-02-07 2022-02-07 [facility] 1.2.840.114 [id number] Univers 00:00:00 00:00:00 Liborio RODRIGUEZ 350.1.13.10 i ty of [place] [phone] Ca dical NAL 044 [facility] 2022-02-05 2022-02-05 Orders Doctor REYES 1.2.840.114 [id number] Univers 00:00:00 00:00:00 Only Unassigned, TOYA 350.1.13.10 ity of [place] [facility] 4.2.7.2.686 Adelso as [phone] [address] 2022-01-24 2022-01-24 Reggie [facility] 1.2.840.114 [id number] Univers 00:00:00 00:00:00 Ya RODRIGUEZ 350.1.13.10 i ty of [place] [phone] Ca dical NAL 085 [facility] 2022-01-24 2022-01-24 [facility] 1.2.840.114 [id number] Univers 00:00:00 00:00:00 Liborio RODRIGUEZ 350.1.13.10 i ty of [place] [address].2.7.2.[place] [id number] Ca dical NAL 044 [facility] 2022-01-18 2022-01-18 [facility] 1.2.840.114 [id number] [id number] Univers 00:00:00 00:00:00 Liborio RODRIGUEZ 350.1.13.10 i ty of [place] [id number] Ca dical NAL 044 [facility] 2022-01-12 2022-01-12 [facility] 1.2.840.114 [id number] Univers 00:00:00 00:00:00 Liborio RODRIGUEZ 350.1.13.10 i ty [place] 42.[place].2.[place] [id number] Ca dical NAL 044 [facility] 2022-01-12 2022-01-12 [facility] 1.2.840.114 [id number] [id number] Univers 00:00:00 00:00:00 Liborio RODRIGUEZ 350.1.13.10 i ty [place] [phone] Ca dical NAL 044 [facility] 2022-01-09 2022-01-09 [facility] 1.2.840.114 [id number] Univers 00:00:00 00:00:00 Liborio RODRIGUEZ 350.1.13.10 [place] [id number] Ca dical NAL 044 [facility] 2022-01-08 2022-01-08 Outpatient R YA QUINTANA [facility] [id number] Univers 10:00:00 10:23:18 YA QUINTANA i ty of [facility] 2022-01-08 2022-01-08 Office [facility] 1.2.840.114 [id number] Univers 10:00:00 10:23:18 Visit Kierracachrystal RODRIGUEZ 350.1.13.10 i ty of [place]2.[place].2.[place] [phone] Ca dictx NAL [address] [place] [address] 2022-01-02 2022-01-02 [facility] 1.2.840.114 [id number] Univers 00:00:00 00:00:00 Liborio RODRIGUEZ 350.1.13.10 i ty of [place] [facility] 4.2.7.2.[place] [phone] Ca dical NAL [address] [place] [address] 2022-01-02 2022-01-02 Refill [facility] 1.2.840.114 [id number] Univers 00:00:00 00:00:00 Ya RODRIGUEZ 350.1.13.10 i ty of [place] 4[place] [phone] Ca dictx NAL [address] [place] [address] 2021-12-29 2021-12-29 Telephone [facility] 1.2.004.995 [id number] Univers 00:00:00 00:00:00 Ya RODRIGUEZ 350.1.13.10 [place] [phone] Ca dictx NAL [address] [place] [address] 2021-12-28 2021-12-28 Telephone [facility] 1.2.840.114 [id number] Univers 00:00:00 00:00:00 Liborio RODRIGUEZ 350.1.13.10 i ty of [place] 4[place] [phone] Ca dical NAL 044 [facility] 2021-12-22 2021-12-22 Orders Doctor REYES 1.2.840.114 [id number] Univers 00:00:00 00:00:00 Only Unassigned, TOYA 350.1.13.10 ity of [place] [facility] 4.2.7.2.686 Adelso as [phone] [address] 2021-12-19 2021-12-19 Letter [facility]ER[facility] 1.2.840.114 [id number] Univers 00:00:00 00:00:00 (Out) Summer RODRIGUEZ 350.1.13.10 i ty [place] [id number] [address] 2021-12-06 2021-12-06 Out[facility] [id number] Univers 13:20:00 14:20:30 LIBORIO aranda [facility] 2021-12-06 2021-12-06 Office [facility] 1.2.840.114 [id number] Univers 13:20:00 14:20:30 Visit Liborio RODRIGUEZ 350.1.13.10 i ty of [place] [id number] [address] 2021-12-05 2021-12-05 Outpatient Ab VACA [facility] [id number] Univers 10:00:00 16:37:56 LEXI itrohan [facility] 2021-12-05 2021-12-05 Ancillary Therapist, Adc Pulmonary [facility] 1.2.840.114 [id number] Univers 10:00:00 16:37:56 Visit Lexi Vaca 350.1.13. 10 ity of [place] [id number] Ca dic[address] 2021-12-05 2021-12-05 Orders Doctor PULLIAM 1.2.840.114 [id number] Univers 00:00:00 00:00:00 Only Unassigned, TOYA 350.1.13.10 ity of [place] [facility] 4.2.7.2.686 Adelso as [phone] [facility] [address] 2021-11-30 2021-11-30 Outpatient R MIKEY [facility] [id number] Univers 09:00:00 14:00:05 LEXI ity of [facility] 2021-11-30 2021-11-30 Ancillary Therapist, Adc Pulmonary [facility] 1.2.840.114 [id number] Univers 09:00:00 14:00:05 Visit Lexi Vaca 350.1.13. 10 it[place] of [place] [id number] Ca dical NAL 296 [facility] 2021-11-30 2021-11-30 Patient Doctor [facility] 1.2.840.114 [id number] Univers 00:00:00 00:00:00 Secure Msg Unassigned, JUNIOR 350.1.13.10 ity [place] [phone] Ca dical NAL 059 [facility] 2021-11-28 2021-11-28 Outpatient R KATEY [facility] [id number] Univers 14:00:00 14:18:18 ROLA aranda [facility] 2021-11-28 2021-11-28 Office Katey [facility] 1.2.840.114 [id number] Univers 14:00:00 14:18:18 Visit Rola ROOT 350.1.13.10 ity [place] [id number] [facility] AND PATEL [address] [facility] 2021-11-28 2021-11-28 Ancillary Therapist, [facility] Pulmonary [facility] 1.2.840.114 [id number] Univers 10:00:00 11:30:45 Visit Lexi Vaca 350.1.13. 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 2, Adc Lab [facility] 1.2.840.114 [id number] Univers 11:00:00 11:15:00 Visit Maral Garsia 350.1.13.10 ity of [place] [facility] 4.2.7.2.[place] [phone] Me dical NAL 353 [facility] 2021-11-28 2021-11-28 Outpatient R MIKEY [facility] [id number] Univers 10:00:00 10:00:00 LEXI ity of [facility] 2021-11-24 2021-11-24 Ancillary Therapist, [facility] Pulmonary [facility] 1.2.840.114 [id number] [facility] 11:00:00 13:01:57 Visit Lexi Vaca 350.1.13. 10 ity of [place] [id number] Ca dical NAL 296 [facility] 2021-11-24 2021-11-24 Orders Doctor REYES 1.2.840.114 [id number] Univers 00:00:00 00:00:00 Only Unassigned, TOYA 350.1.13.10 ity of [place] [facility] 4.2.7.2.686 Adelso as [phone] [address] 2021-11-22 2021-11-22 Refill Bairon [facility] 1.2.840.114 [id number] Univers 00:00:00 00:00:00 Ya RODRIGUEZ 350.1.13.10 i ty of [place] [id number] Ca dical NAL 085 [facility] 2021-11-21 2021-11-21 Ancillary Therapist, [facility] Pulmonary [facility] 1.2.840.114 [id number] Univers 10:00:00 11:38:20 Visit Lexi Vaca 350.1.13. 10 it[place] [id number] Ca dical NAL 296 [facility] 2021-11-19 2021-11-19 [facility] 1.2.840.114 [id number] Univers 00:00:00 00:00:00 Liborio RODRIGUEZ 350.1.13.10 i ty [place] [phone] [facility] 044 [facility] 2021-11-16 2021-11-16 Outpatient [facility] [id number] Univers 10:00:00 11:59:47 LEXI rohan [facility] 2021-11-16 2021-11-16 Ancillary Therapist, [facility] Pulmonary [facility] 1.2.840.114 [id number] Univers 10:00:00 11:59:47 Visit Lexi Vaca 350.1.13. 10 it[place] [phone] [facility] 296 [facility] 2021-11-16 2021-11-16 Orders Doctor PULLIAM 1..840.114 [id number] Univers 00:00:00 00:00:00 Only Unassigned, TOYA 350.1.13.10 ity of [place] [facility] 4.2.7.2.686 Adel[place] as [phone] [address] 2021-11-14 2021-11-14 Ancillary Therapist, [facility] Pulmonary [facility] 1.2.840.114 [id number] Univers 10:00:00 11:49:36 Visit Lexi Vaca 350.1.13. 10 it[place] [phone] [address] 2021-11-14 2021-11-14 Outpatient R MIKEY [facility] [id number] Univers 10:00:00 10:00:00 LEXI aranda [facility] 2021-11-12 2021-11-12 [facility] 1.2.840.114 [id number] Univers 00:00:00 00:00:00 Liborio RODRIGUEZ 350.1.13.10 i ty [place] [phone] [address] BUILDING 2021-11-10 2021-11-10 Outpatient R MIKEY [facility] [id number] Univers 10:00:00 11:11:06 LEXI rohan [facility] 2021-11-10 2021-11-10 Ancillary Therapist, [facility] Pulmonary [facility] 1.2.840.114 [id number] Univers 10:00:00 11:11:06 Visit eLxi Vaca 350.1.13. 10 ity of [place] [phone] [facility] 296 [facility] 2021-11-07 2021-11-07 Outpatient R MIKEY [facility] [id number] Univers 10:00:00 11:55:14 LEXI rohan [facility] 2021-11-07 2021-11-07 Ancillary Therapist, [facility] Pulmonary [facility] 1.2.840.114 [id number] Univers 10:00:00 11:55:14 Visit Lexi Vaca 350.1.13. 10 it[place] [id number] [address] 2021-11-07 2021-11-07 Orders Doctor REYES 1.2.840.114 [id number] Univers 00:00:00 00:00:00 Only Unassigned, TOYA 350.1.13.10 ity of [place] [facility] 4.2.7.2.686 Adelso as [id number] [address] 2021-11-03 2021-11-03 Telephone [facility] 1.2.532.385 [id number] Univers 00:00:00 00:00:00 Summer RODRIGUEZ 350.1.13.10 i ty [place] [id number] [address] 2021-11-02 2021-11-02 Outpatient R MIKEY [facility] [id number] Univers 09:00:00 11:11:30 LEXI aranda [facility] 2021-11-02 2021-11-02 Ancillary Therapist, Adc Pulmonary [facility] 1.2.840.114 [id number] Univers 09:00:00 11:11:30 Visit Lexi Vaca 350.1.13. 10 it[place] of [place] [id number] Ca dical [address] 2021-11-02 2021-11-02 Outpatient R LOWELL [facility] [id number] Univers 11:00:00 11:00:00 HASMUKH ity of [facility] 2021-11-02 2021-11-02 Orders Doctor REYES 1.2.840.114 [id number] Univers 00:00:00 00:00:00 Only Unassigned, TOYA 350.1.13.10 ity of [place] [facility] 4.2.7.2.686 Adelso as [phone] [facility] [address] 2021-11-01 2021-11-01 [facility] 1.2.840.114 [id number] Univers 08:52:21 23:59:00 Encounter Dariana RODRIGUEZ 350.1.13.10 it[place] of [place] [id number] [facility] [address] 2021-11-01 2021-11-01 [facility] 1.2.840.114 [id number] Univers 08:52:08 23:59:00 Encounter Dariana ARANDATON 350.1.13.10 it[place] of [place] [id number] [facility] 8[address] 2021-11-01 2021-11-01 [facility] 1.2.840.114 [id number] Univers 08:51:53 08:51:53 Encounter Dariana ARANDATON 350.1.13.10 ity [place] [phone] [facility] [address] 2021-11-01 2021-11-01 [facility] [id number] Univers 08:51:26 08:51:26 DARIANA tabory o f [facility] 2021-11-012021-11-01 Outpatient [facility] [id number] Univers 08:51:26 08:51:26 SONGGAMAL rosi o f [facility] 2021-11-01 2021-11-01 [facility] 1.2.840.114 [id number] Univers 08:51:26 08:51:26 Encounter Dariana RODRIGUEZ 350.1.13.10 it[place] of [place] [id number] [facility] [address] 2021-11-01 2021-11-01 Outpatient [facility] [id number] Univers 00:00:00 00:00:00 DARIANA pulido f [facility] 2021-10-31 2021-10-31 Outpatient [facility] [id number] Univers 11:00:00 11:52:17 HASMUKH aranda [facility] 2021-10-31 2021-10-31 Ancillary Halina Leavitt [facility] 1.2.84 0.114 [id number] Univers 11:00:00 11:52:17 Visit Hasmukh Etienne 350.1.13.10 ity of [place] [phone] Ca dical NAL 179 [facility] 2021-10-26 2021-10-26 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 And 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 2, Adc Lab [facility] 1.2.840.114 [id number] Univers 14:00:00 14:15:00 Visit Unknown, Trudy RODRIGUEZ 350.1.13.1 0 it[place] of [place] [id number] Ca dical NAL 353 [facility] 2021-10-26 2021-10-26 Outpatient R KASSANDRA, [facility] [id number] Univers 14:00:00 14:00:00 ATTENDING rosi [facility] 2021-10-26 2021-10-26 Ancillary Florence Chris [facility] 1.2.840 .114 [id number] Univers 13:00:00 13:59:53 Visit Hasmukh Etienne 350.1.13.10 ity of [place] [id number] Ca dical NAL 179 [facility] 2021-10-26 2021-10-26 Telephone Kenneth [facility] 1.2.233.540 [id number] Univers 00:00:00 00:00:00 Summer RODRIGUEZ 350.1.13.10 i ty of [place] [facility] 4.2.7.2.[place] [phone] Ca dical NAL 296 [facility] 2021-10-26 2021-10-26 Orders Doctor REYES 1.2.840.114 [id number] Univers 00:00:00 00:00:00 Only Unassigned, TOYA 350.1.13.10 ity of [place] [facility] 4.2.7.2.686 Adelso as [id number] [address] 2021-10-24 2021-10-24 Outpatient R TESS [facility] [id number] Univers 00:00:00 00:00:00 DARIANA pulido f [facility] 2021-10-24 2021-10-24 [facility] 1.2.840.114 [id number] Univers 00:00:00 00:00:00 Liborio RODRIGUEZ 350.1.13.10 i ty [place] [phone] Ca dical NAL 044 [facility] 2021-10-24 2021-10-24 [facility] 1.2.840.114 [id number] Univers 00:00:00 00:00:00 Liborio RODRIGUEZ 350.1.13.10 i [id number] [phone] Ca dical NAL 044 [facility] 2021-10-19 2021-10-19 Ancillary Halina Leavitt [facility] 1.2.84 0.114 [id number] Univers 11:00:00 13:23:38 Visit Hasmukh Etienne 350.1.13.10 ity [facility] [place] [phone] Ca dical NAL 179 [facility] 2021-10-19 2021-10-19 Outpatient R LOWELL [facility] [id number] Univers 11:00:00 11:00:00 HASMUKH ity [facility] 2021-10-11 2021-10-11 Outpatient R RENETTA LUCIOCarlos ADelroy [facility] [id number] Univers 13:30:00 14:41:51 EVELINE LUCIOy [facility] 2021-10-11 2021-10-11 [facility] 1.2.840.114 [id number] Univers 13:30:00 14:41:51 Visit Tajkailyn RODRIGUEZ 350.1.13.10 ity of [place] [facility] [id number] [phone] Ca dical NAL 044 [facility] 2021-10-11 2021-10-11 Outpatient R EVELINE LUCIO [facility] [id number] Univers 13:30:00 13:30:00 EVELINE LUCIO y [facility] 2021-10-06 2021-10-06 Telephone Tess [facility] 1.2.581.164 [id number] Univers 00:00:00 00:00:00 Dariana RODRIGUEZ 350.1.13.10 it[place] [phone] Ca dical NAL 059 [facility] 2021-10-06 2021-10-06 Transition MELANIE Ty 1.2.840.114 [id number] Univers 00:00:00 00:00:00 of Care Nydia CARDY 350.1.13.10 [place] [phone] [address] 2021-10-04 2021-10-05 Outpatient X KB [facility] TATE [id number] Univers 04:33:00 15:10:00 [facility] 2021-10-05 Emergency Xavier Tejada [facility] 1.2.840. 114 [id number] Univers 04:33:00 15:10:00 Marisela Quiles 350.1.13.10 ity [facility] 4[place].2.[place] [facility] [phone] [facility] [address] 2021-10-05 2021-10-05 Outpatient R [facility] [id number] Univers 13:00:00 13:00:00 ity [facility] 2021-10-04 2021-10-04 Nurse REYES Lagunas 1.2.840.114 [id number] Univers 00:00:00 00:00:00 Triage Marylin P[place]AN 350.1.13.10 it [facility] 4.2.7.2.686 [place] [phone] [place] [facility] [address] 2021-10-04 2021-10-04 Letter Testing, UNIVERSIT 1..840.114 [id number] Univers 00:00:00 00:00:00 (Out) [facility] 350.1.13.10 i ty of Pulmonary CLINICS [place].2.[place] Function [phone] Med ical 083 Branch 2021-10-03 2021-10-03 [facility] [id number] Univers 13:00:00 14:20:09 HASMUKH aranda [facility] 2021-10-03 2021-10-03 Ancillary Chuck Chris [facility] 1.2.840. 114 [id number] Univers 13:00:00 14:20:09 Visit Hasmukh Etienne 350.1.13.10 ity [facility] 4.2.7.2.686 [facility] PROFESSIO [phone] Ca dical [facility] [address] [facility] 2021-10-03 2021-10-03 Outpatient R [facility]LL [facility] [id number] Univers 13:00:00 14:20:09 HASMUKH aranda [facility] 2021-10-01 2021-10-01 Reggie Lucio [facility] 1.2.840.114 [id number] Univers 00:00:00 00:00:00 Eveline RODRIGUEZ 350.1.13.10 ity [facility] [place] [phone] Ca dical NAL 044 [facility] 2021-10-01 2021-10-01 Refill Khadijah [facility] 1.2.840.114 [id number] Univers 00:00:00 00:00:00 Eveline JUNIOR 350.1.13.10 ity of [facility] 4.2.7.2.[place] [phone] Ca dical NAL 044 [facility] 2021-09-29 2021-09-29 Outpatient R YA QUINTANA [facility] [id number] Univers 11:00:00 11:42:05 YA QUINTANA i ty of [facility] 2021-09-29 2021-09-29 Office Bairon [facility] 1.2.840.114 [id number] Univers 11:00:00 11:42:05 Visit Ya RODRIGUEZ 350.1.13.10 i ty of [place] [place] [facility] 4.2.7.2.[place] [phone] Ca dical NAL 085 [facility] 2021-09-29 2021-09-29 Outpatient R YA QUINTANA [facility] 10 [id number] Univers 11:00:00 11:00:00 YA QUINTANA i ty of [facility] 2021-09-29 2021-09-29 Telephone Bairon [facility] 1.2.094.197 [id number] Univers 00:00:00 00:00:00 Ya RODRIGUEZ 350.1.13.10 i ty of [place] 4[place].2.[place] [phone] Ca dical NAL 085 [facility] 2021-09-28 2021-09-28 Ancillary Nury Cortez [facility] 1.2. 840.114 [id number] Univers 16:00:00 16:45:00 Visit Hasmukh Etienne 350.1.13.10 ity of [place] [place] [facility] 4.2.7.2.[place] [phone] Ca dical NAL 179 [facility] 2021-09-28 2021-09-28 Outpatient R LOWELL [facility] [id number] Univers 16:00:00 16:00:00 HASMUKH ity [facility] 2021-09-27 2021-09-27 Outpatient R [facility] [id number] Univers 15:00:00 15:50:24 KAVON ity [facility] 2021-09-27 2021-09-27 Outpatient R [facility] [id number] Univers 15:00:00 15:50:24 [facility] 2021-09-27 2021-09-27 [facility] 1.2.840.114 [id number] Univers 15:00:00 15:50:24 Visit [facility] 350.1.13.10 it y of [place] 4.2.7.2.686 [place] as NENO?BLEA [phone] [facility] 044 Rosine MEDICAL OFFICE BUILDING 2021-09-26 2021-09-26 Ancillary Nury Cortez [facility] 1.2. 840.114 [id number] Univers 14:30:00 15:15:00 Visit Hasmukh Etienne 350.1.13.10 ity of [place] [facility] 4.2.7.2.[place] [phone] [facility] 179 [facility] 2021-09-23 2021-09-23 Reggie Quintana [facility] 1.2.840.114 [id number] Univers 00:00:00 00:00:00 Ya ROOT 350.1.13.10 ity of [place] 4.2.7.2.686 [place] [phone] Miguel goodwin [facility] [address] [facility] 2021-09-23 2021-09-23 Refindy Hall [facility] 1.2.840.114 [id number] Univers 00:00:00 00:00:00 Liborio RODRIGUEZ 350.1.13.10 i ty of [place] [place] [facility] 4.2.7.2.[place] [phone] Ca dical NAL [address] [facility] 2021-09-22 2021-09-22 Refindy Levy [facility] 1.2.840.114 [id number] Univers 00:00:00 00:00:00 Kavon MANOJTON 350.1.13.10 i ty of [place] 4.2.7.2.[place] [phone] Ca dical NAL 044 [facility] 2021-09-21 2021-09-21 Outpatient R LOWELL [facility] [id number] Univers 16:00:00 16:47:06 HASMUKH ity [facility] 2021-09-21 2021-09-21 Ancillary Nury Cortez [facility] 1.2. 840.114 [id number] Univers 16:00:00 16:47:06 Visit Hasmukh Etienne 350.1.13.10 ity of [place] 4.2.7.2.[place] [phone] [facility] 179 [facility] 2021-09-20 2021-09-20 Outpatient R [facility] [id number] Univers 13:30:00 14:59:35 KAVON ity [facility] 2021-09-20 2021-09-20 Outpatient [facility] [id number] Univers 13:30:00 14:59:35 KAVON [facility] 2021-09-20 2021-09-20 Office Mildred [facility] 1.2.840.114 [id number] Univers 13:30:00 14:59:35 Visit Kavon RODRIGUEZ 350.1.13.10 i ty of [place] [place] [facility] 4.2.7.2.[place] [phone] Ca dical NAL 044 [facility] 2021-09-19 2021-09-19 Ancillary Nury Cortez [facility] 1.2. 840.114 [id number] Univers 16:00:00 16:45:00 Visit Hasmukh Etienne 350.1.13.10 ity of [place] [facility] 4.2.7.2.[place] [phone] Ca dical NAL 179 [facility] 2021-09-14 2021-09-14 Ancillary Chuck Chris [facility] 1.2.840. 114 [id number] Univers 13:45:00 14:44:46 Visit Hasmukh Etienne 350.1.13.10 ity of [place] 4.2.7.2.[place] [phone] Ca dical NAL 179 [facility] 2021-09-12 2021-09-12 Ancillary Florence Chris [facility] 1.2.840 .114 [id number] Univers 11:15:00 13:55:27 Visit Hasmukh Etienne 350.1.13.10 ity of [place] 4.2.7.2.[place] [phone] Me dical NAL 179 [facility] 2021-09-07 2021-09-07 Ancillary Chuck Chris [facility] 1.2.840. 114 [id number] Univers 13:45:00 14:30:00 Visit Hasmukh Etienne 350.1.13.10 ity of [place] 4.2.7.2.[place] [phone] Ca dical NAL 179 [facility] 2021-09-06 2021-09-06 Telephone Isabel [facility] 1.2.840.114 [id number] Univers 00:00:00 00:00:00 Liborio RODRIGUEZ 350.1.13.10 i ty of [place] [facility] 4.2.7.2.[place] [phone] Me dical NAL 044 [facility] 2021-09-05 2021-09-05 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 And 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 2, Adc Lab [facility] 1.2.840.114 [id number] Univers 16:15:00 16:30:00 Visit Liborio Hall 350.1.13.10 ity of [place] [facility] 4.2.7.2.[place] [phone] Ca dical NAL 353 [facility] 2021-09-05 2021-09-05 Outpatient R ISABEL ORANNIKA [facility] [id number] Univers 15:20:00 16:16:29 LIBORIO aranda of [facility] 2021-09-05 2021-09-05 Office Isabel [facility] 1.2.840.114 [id number] Univers 15:20:00 16:16:29 Visit Liborio RODRIGUEZ 350.1.13.10 i ty of [place] 4.2.7.2.[place] [phone] Ca dical NAL 044 [facility] 2021-09-05 2021-09-05 Outpatient R [facility]ENNE [facility] [id number] Univers 11:00:00 11:55:12 HASMUKHJOSE JUAN aranda [facility] 2021-09-05 2021-09-05 Ancillary Chuck Chris [facility] 1.2.840. 114 [id number] Univers 11:00:00 11:45:00 Visit Hasmukh Etienen 350.1.13.10 ity of [place] 4.2.7.2.[place] [phone] Ca dical NAL 179 [facility] 2021-09-05 2021-09-05 Outpatient R [facility] [id number] Univers 11:00:00 11:00:00 HASMUKHJOSE JAUN aranda [facility] 2021-08-24 2021-08-24 Ancillary Nury Cortez [facility] 1.2. 840.114 [id number] Univers 13:45:00 14:30:00 Visit Hasmukh Etienne 350.1.13.10 ity of [place] 4.2.7.2.[place] [phone] Ca dical NAL 179 [facility] 2021-08-22 2021-08-22 Ancillary Chuck Chris [facility] 1.2.840. 114 [id number] Univers 14:30:00 15:15:00 Visit Hasmukh Etienne 350.1.13.10 ity of [place] [facility] 4.2.7.2.[place] [phone] Ca dical NAL 179 [facility] 2021-08-22 2021-08-22 Outpatient R [facility] [id number] Univers 14:30:00 14:30:00 HASMUKHJOSE JUAN aranda [facility] 2021-08-17 2021-08-17 Ancillary Chuck Chris [facility] 1.2.840. 114 [id number] Univers 09:30:00 10:38:41 Visit Hasmukh Etienne 350.1.13.10 ity of [place] [facility] 4.2.7.2.[place] [phone] Ca dical NAL 179 [facility] 2021-08-10 2021-08-10 Ancillary Aries Chuck Armin [facility] 1.2.840. 114 [id number] Univers 09:30:00 10:15:00 Visit Hasmukh Etienne 350.1.13.10 ity of [place] [facility] 4.2.7.2.[place] [phone] Ca dical NAL 179 [facility] 2021-08-08 2021-08-08 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 And 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 Simi Allen [facility] Main [facility] 1.2.8 40.114 [id number] Univers 14:15:00 14:30:00 Visit Maral Garsia 350.1.13.10 ity of [place] [facility] 4.2.7.2.[place] [phone] Ca dical NAL 353 [facility] 2021-08-08 2021-08-08 Outpatient R SAYRA [facility] [id number] [facility] 14:15:00 14:15:00 VINITHA ity of [facility] 2021-08-08 2021-08-08 Ancillary Chuck Chris [facility] 1.2.840. 114 [id number] Univers 13:00:00 13:45:00 Visit Hasmukh Etienne 350.1.13.10 ity of [place] [facility] 4.2.7.2.[place] [phone] Ca dical NAL 179 [facility] 2021-08-08 2021-08-08 Orders Doctor REYES 1.2.840.114 [id number] Univers 00:00:00 00:00:00 Only Unassigned, TOYA 350.1.13.10 ity of [place] [facility] 4.2.7.2.686 [place] as [phone] [address] 2021-08-06 2021-08-06 [facility] 1.2.840.114 [id number] Univers 00:00:00 00:00:00 Liborio RODRIGUEZ 350.1.13.10 i ty of [place] [facility] 4.2.7.2.686 [place] [phone] Ca dical NAL 044 [facility] 2021-08-03 2021-08-03 Outpatient R LOWELL [facility] [id number] Univers 11:00:00 11:47:32 HASMUKH aranda [facility] 2021-08-03 2021-08-03 Outpatient R [facility]OWELL [facility] [id number] Univers 11:00:00 11:47:32 HASMUKH rohan [facility] 2021-08-03 2021-08-03 Ancillary Chuck Chris [facility] 1.2.840. 114 [id number] Univers 11:00:00 11:45:00 Visit Hasmukh Etienne JUNIOR 350.1.13.10 ity of [place] [facility] 4.2.7.2.[place] [phone] Ca dical NAL 179 [facility] 2021-08-03 2021-08-03 Outpatient R LOWELL [facility] [id number] Univers 11:00:00 11:00:00 HASMUKH rohan [facility] 2021-08-01 2021-08-01 Ancillary Halina Leavitt [facility] 1.2.84 0.114 [id number] Univers 11:00:00 11:45:00 Visit Hasmukh Etienne Richar RODRIGUEZ 350.1.13.10 ity of [place] [facility] 4.2.7.2.[place] [id number] Ca dical NAL 179 [facility] 2021-08-01 2021-08-01 Outpatient R LOWELL [facility] [id number] Univers 11:00:00 11:00:00 HASMUKH [facility] 2021-08-01 2021-08-01 Telephone Isabel [facility] 1.2.840.114 [id number] Univers 00:00:00 00:00:00 Liborio RODRIGUEZ 350.1.13.10 i ty of [place].2.7.2.[place] [phone] Ca dical NAL 044 [facility] 2021-07-27 2021-07-27 Ancillary Chuck Chris [facility] 1.2.840. 114 [id number] Univers 11:00:00 11:45:00 Visit Hasmukh Etienne 350.1.13.10 ity of [place] [facility] 4.2.7.2.[place] [phone] Ca dical NAL 179 [facility] 2021-07-25 2021-07-25 Ancillary Chuck Chris [facility] 1.2.840. 114 [id number] Univers 11:00:00 12:59:36 Visit Hasmukh Etienne 350.1.13.10 ity of [place] [facility] 4.2.7.2.[place] [phone] Ca dical NAL 179 [facility] 2021-07-24 2021-07-24 Outpatient Ab CARDOZO [facility] [id number] Univers 13:20:00 13:20:00 GAYATHRI ity [facility] 2021-07-17 2021-07-17 Ancillary Halina Leavitt [facility] 1.2.84 0.114 [id number] Univers 15:15:00 17:36:17 Visit Hasmukh Etienne 350.1.13.10 ity of [place] [facility] 4.2.7.2.[place] [phone] [facility] 179 [facility] 2021-07-17 2021-07-17 Outpatient R LOWELL [facility] [id number] Univers 15:15:00 17:36:17 HASMUKH aranda [facility] 2021-07-17 2021-07-17 Outpatient R LOWELL [facility] [id number] Univers 15:15:00 17:36:17 HASMUKH aranda [facility] 2021-07-17 2021-07-17 Outpatient R LOWELL [facility] [id number] Univers 15:15:00 15:15:00 HSAMUKH [facility] 2021-07-14 2021-07-14 Orders Doctor PULLIAM 1.2.840.114 [id number] Univers 00:00:00 00:00:00 Only Unassigned, TOYA 350.1.13.10 ity of [place] [facility] 4.2.7.2.686 Ad[place] as [phone] [address] 2021-07-11 2021-07-11 [facility] 1.2.840.114 [id number] Univers 00:00:00 00:00:00 Liborio RODRIGUEZ 350.1.13.10 i ty of [place]2.[place].2.[place] [id number] [address] 2021-07-05 2021-07-05 [facility] 1.2.840.114 [id number] Univers 00:00:00 00:00:00 Liborio RODRIGUEZ 350.1.13.10 i ty of [place].2.[place] [id number] [address] 2021-07-05 2021-07-05 [facility] 1.2.840.114 [id number] Univers 00:00:00 00:00:00 Liborio RODRIGUEZ 350.1.13.10 i ty of [place] 4.2.7.2.[place] [phone] [address] 2021-07-05 2021-07-05 [facility] 1.2.840.114 [id number] Univers 00:00:00 00:00:00 [facility] 350.1.13.10 ity of [place] 4.2.7.2.686 Adelso as NENO?BLEA [id number] [facility] HILARIO [address] [place] [address] MEDICAL OFFICE [facility] 2021-07-04 2021-07-04 [facility] 1.2.840.114 [id number] Univers 00:00:00 00:00:00 Liborio RODRIGUEZ 350.1.13.10 i ty of [place] 4.2.7.2.[place] [phone] Ca dictx MARY [address] [place] [address] 2021-07-03 2021-07-03 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 And 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 Alejandro, Simi Lab Main [facility] 1.2.8 40.114 [id number] Univers 14:30:00 14:45:00 Visit Maral Garsia 350.1.13.10 ity of [place] [facility] 4.2.7.2.686 [place] [phone] Ca dicjennifer HERNANDEZ 353 [facility] 2021-07-03 2021-07-03 Outpatient R SAYRA [facility] [id number] Univers 14:30:00 14:30:00 MARAL [facility] 2021-07-03 2021-07-03 Orders Doctor REYSE 1.2.840.114 [id number] Univers 00:00:00 00:00:00 Only Unassigned, TOYA 350.1.13.10 ity of [place] [facility] 4.2.7.2.686 Adelso as [phone] [address] 2021-06-28 2021-06-28 Telephone [facility] 1.2.840.114 [id number] Univers 00:00:00 00:00:00 Liborio RODRIGUEZ 350.1.13.10 i ty of [place] 4.2.7.2.[place] [phone] Ca fransiscojennifer HERNANDEZ 044 [facility] 2021-06-28 2021-06-28 Telephone [facility] 1.2.840.114 [id number] Univers 00:00:00 00:00:00 Liborio RODRIGUEZ 350.1.13.10 i ty of [place] [facility] 4.2.7.2.686 [place] [id number] Ca darshana HERNANDEZ 044 [facility] 2021-06-27 2021-06-27 Outpatient R MICHAEL RIZZO [facility] [id number] Univers 16:00:00 17:03:45 MICHAEL RIZZO [facility] 2021-06-27 2021-06-27 Office Yahir [facility] 1.2.840.114 [id number] Univers 16:00:00 17:03:45 Visit [facility] 350.1.13.10 ity of [place] 4.2.7.2.686 Adelso as NENO?BLEA [phone] Ca darshana RICH 092 [facility] OFFICE [facility] 2021-06-27 2021-06-27 Outpatient R YAHIR MICHAEL [facility] [id number] Univers 16:00:00 16:00:00 MICHAEL RIZZO ity [facility] 2021-06-26 2021-06-26 Refindy [facility] 1.2.840.114 [id number] Univers 00:00:00 00:00:00 Ogechukwu [place] 350.1.13.10 ity of [place] 4.2.7.2.[place] [phone] Ca dical NAL 044 [facility] 2021-06-26 2021-06-26 Refindy [facility] 1.2.840.114 [id number] Univers 00:00:00 00:00:00 [facility]chukwu [facility] 350.1.13.10 ity of [place] 4.2.7.2.[place] [id number] Ca dical NAL [address] [place] [address] 2021-06-22 2021-06-22 Outpatient R [facility] [id number] Univers 10:06:41 23:59:00 rosi DENNY [facility] 2021-06-22 2021-06-22 [facility] 1.2.840.114 [id number] Univers 10:06:41 23:59:00 Encounter MARYJANE denny 350.1.13.10 ity [facility] [place].2.7.2.[place] CENTER AT [phone] Ca darshana SEGOVIA 809 [facility] 2021-06-22 2021-06-22 [facility] [id number] Univers 10:00:00 10:38:05 GAYATHRI ity [facility] 2021-06-22 2021-06-22 Office [facility] 1.2.840.114 [id number] Univers 10:00:00 10:38:05 Visit Gayathri SPECIALTY 350.1.13.10 ity of [place].2.[place] CENTER AT [phone] Ca darshana SEGOVIA 198 [facility] 2021-06-22 2021-06-22 Outpatient R JULIANE [facility] [id number] Univers 10:00:00 10:00:00 GAYATHRI [facility] 2021-06-22 2021-06-22 Outpatient R JULIANE [facility] [id number] Univers 10:00:00 10:00:00 GAYATHRI [facility] 2021-06-20 2021-06-20 Telephone [facility] 1.2.840.114 [id number] Univers 00:00:00 00:00:00 Liborio RODRIGUEZ 350.1.13.10 i ty of [place].2.[place] [phone] [facility] 231 [facility] 2021-06-19 2021-06-19 Outpatient R EVELINE LUCIO [facility] [id number] Univers 14:00:00 15:06:35 EVELINE LUCIO [facility] 2021-06-19 2021-06-19 Outpatient R EVELINE LUCIO [facility] [id number] Univers 14:00:00 15:06:35 EVELINE LUCIO [facility] 2021-06-19 2021-06-19 Office Khadijah [facility] 1.2.840.114 [id number] Univers 14:00:00 15:06:35 Visit Eveline RODRIGUEZ 350.1.13.10 ity of [place] [facility] 4.2.7.2.[place] PROFESSIO [phone] Ca fransisco[address] 2021-06-19 2021-06-19 Telephone [facility] 1.2.840.114 [id number] Univers 00:00:00 00:00:00 Liborio RODRIGUEZ 350.1.13.10 i ty of [place] [facility] 4.2.7.2.[place]ESS[place] [phone] Ca dic[address] 2021-06-18 2021-06-18 [facility] 1.2.840.114 [id number] Univers 00:00:00 00:00:00 Liborio RODRIGUEZ 350.1.13.10 i ty of [place] 4.2.7.2.[place] [phone] Ca dictx NAL 044 [facility] 2021-06-18 2021-06-18 Reggie Carrasco [facility] 1.2.840.114 [id number] Univers 00:00:00 00:00:00 Jaxon TREJO 350.1.13.10 i ty [place].2.[place] [phone] [facility] [address] 2021-06-16 2021-06-16 Telephone [facility] 1.2.840.114 [id number] Univers 00:00:00 00:00:00 Liborio RODRIGUEZ 350.1.13.10 i ty of [place].2.[place] [id number] [facility] 044 [facility] 2021-06-15 2021-06-15 Reggie [facility] 1.2.840.114 [id number] Univers 00:00:00 00:00:00 Ya ROOT 350.1.13.10 [place] [id number] [facility] AND JORGE [address] [facility] 2021-06-13 2021-06-13 Transition MELANIE Mejia 1.2.840.114 [id number] Univers 00:00:00 00:00:00 of Care Jared VICKERS 350.1.13.10 [place] [id number] [facility] [address] 2021-06-09 2021-06-12 Inpatient [facility] [id number] Univers 17:51:00 12:45:00 HOWARD ity of [facility] 2021-06-09 2021-06-12 [facility] 1.2.840.114 [id number] Univers 17:51:00 12:45:00 Encounter Howard RODRIGUEZ 350.1.13.10 ity of [facility] [place].2.[place] [id number] [facility] [address] 2021-06-07 2021-06-07 Outpatient [facility] [id number] Univers 14:50:10 23:59:00 LIBORIO aranda [facility] 2021-06-07 2021-06-07 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, [facility] 1.2.8 40.114 [id number] Univers 15:15:00 15:30:00 Visit Liborio Hall 350.1.13.10 [place]y [place] [id number] Ca dical NAL [address] [facility] 2021-06-06 2021-06-06 Office [facility] 1.2.840.114 [id number] Univers 11:00:00 12:16:06 Visit Liborio RODRIGUEZ 350.1.13.10 i ty [place] [phone] Ca dical NAL [address] [place] [facility] 2021-06-06 2021-06-06 [facility] [id number] Univers 11:00:00 12:16:06 LIBORIO aranda [facility] 2021-06-06 2021-06-06 Outpatient R [facility]EL [facility] [id number] Univers 11:00:00 12:16:06 LIBORIO aranda [facility] 2021-06-06 2021-06-06 [facility] [id number] Univers 11:00:00 12:16:06 LIBORIO aranda [facility] 2021-06-06 2021-06-06 [facility] [id number] Univers 11:00:00 11:00:00 LIBORIO aranda [facility] 2021-06-06 2021-06-06 Outpatient R [facility]EL [facility] [id number] Univers 11:00:00 11:00:00 LIBORIO aranda [facility] 2021-06-06 2021-06-06 Outpatient R [facility]EL [facility] [id number] Univers 11:00:00 11:00:00 LIBORIO rohan [facility] 2021-05-31 2021-05-31 Outpatient R [facility]EL [facility] [id number] Univers 15:00:00 16:12:40 LIBORIO rohan [facility] 2021-05-31 2021-05-31 [facility] 1.2.840.114 [id number] Univers 15:00:00 16:12:40 Visit Liborio RODRIGUEZ 350.1.13.10 i ty of [place] [phone] [facility] NAL [address] [place] [address] 2021-05-31 2021-05-31 Outpatient R ISABEL [facility] [id number] Univers 15:00:00 15:00:00 LIBORIO rohan [facility] 2021-05-18 2021-05-18 [facility] 1.2.840.114 [id number] Univers 00:00:00 00:00:00 Liborio RODRIGUEZ 350.1.13.10 i ty of [place] 4.2.[place] [phone] Ca dical NAL [address] [place] [address] 2021-05-18 2021-05-18 [facility] ElidiadenvercheyanneSIER[facility] 1.2.840.114 [id number] Univers 00:00:00 00:00:00 Liborio RODRIGUEZ 350.1.13.10 i ty of [place] [phone] Ca dical NAL [address] [place] [address] 2021-05-18 2021-05-18 [facility] 1.2.840.114 [id number] Univers 00:00:00 00:00:00 Liborio RODRIGUEZ 350.1.13.10 i ty of [facility] 4.2.7.2.[place] [phone] Ca dical NAL [address] [place] [facility] 2021-05-18 2021-05-18 [facility]indy [facility] 1.2.840.114 [id number] Univers 00:00:00 00:00:00 Shiwan MULTISPEC 350.1.13.10 ity of [place] C[place] [phone] [facility] AND [address] [facility] 2021-05-18 2021-05-18 Refindy [facility] 1.2.840.114 [id number] Univers 00:00:00 00:00:00 Shiclaudia MULTISPEC 350.1.13.10 ity of [facility] 4.2.7.2.[place] [id number] [address] [facility] 2021-05-17 2021-05-17 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 And 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 Alejandro, Simi Lab Main [facility] 1.2.8 40.114 [id number] Univers 14:15:00 14:30:00 Visit Maral Garsia 350.1.13.10 ity of [place] 4.2.[place] [phone] Ca dical NAL [address] [place] [facility] 2021-05-17 2021-05-17 Outpatient R SAYRA [facility] [id number] Univers 14:15:00 14:15:00 MARAL ity of [facility] 2021-05-17 2021-05-17 Orders Doctor PULLIAM 1.2.840.114 [id number] Univers 00:00:00 00:00:00 Only Unassigned, TOYA 350.1.13.10 ity of [place] [facility] 4.2.7.2.686 Adelso as [phone] [facility] [address] 2021-05-16 2021-05-16 [facility] 1.2.840.114 [id number] Univers 15:00:00 16:55:16 Visit Jaxon TREJO 350.1.13.10 i ty of [place].2.[place] [phone] [facility] [address] 2021-05-16 2021-05-16 [facility] [id number] Univers 15:00:00 16:55:16 JAXON rohan [facility] 2021-05-16 2021-05-16 Outpatient [facility] [id number] Univers 15:00:00 15:00:00 JAXON aranda [facility] 2021-05-12 2021-05-12 Transition TyMELANIE 1.2.840.114 [id number] Univers 00:00:00 00:00:00 of Care Nydia VICKERS 350.1.13.10 it y of [place].2.[place] [phone] [facility] [address] 2021-05-09 2021-05-11 Inpatient X AMOS [facility] TATE [id number] Univers 14:54:00 15:04:00 FREDO aranda [facility] 2021-05-09 2021-05-11 [facility] ZhouDomitila [facility] 1.2.8 40.114 [id number] Univers 14:54:00 15:04:00 Encounter Fredo Trinidad 350.1.13.10 ity of [facility] [facility] 4.2.7.2.[place] [phone] [facility] 0[address] 2021-05-05 2021-05-05 Patient [facility] 1.2.840.114 [id number] Univers 00:00:00 00:00:00 Secure Msg Liborio RODRIGUEZ 350.1.13.10 ity of [facility] 4.2.7.2.[place] [phone] Ca dical NAL [address] [place] [facility] 2021-04-13 2021-04-13 Refill [facility] 1.2.840.114 [id number] Univers 00:00:00 00:00:00 Ya RODRIGUEZ 350.1.13.10 i ty of [facility] 4.2.7.2.[place] [phone] Ca dical NAL [address]85 [place] [facility] 2021-04-04 2021-04-04 Refill Isabel [facility] 1.2.840.114 [id number] Univers 00:00:00 00:00:00 Liborio RODRIGUEZ 350.1.13.10 i ty of [place] [phone] Ca dical NAL 044 [place] [facility] 2021-03-31 2021-03-31 [facility] 1.2.840.114 [id number] Univers 00:00:00 00:00:00 Jaxon TREJO 350.1.13.10 i ty of [facility] 4.[place].2.[place] [phone] [address] 2021-03-21 2021-03-21 [facility] 1.2.840.114 [id number] Univers 00:00:00 00:00:00 Shakeel RAMÍREZ 350.1.13.10 y of MEDICINE 4.2.7.2.686 [place]el[place] as CLINIC - [phone] [address] 2021-03-14 2021-03-14 [facility] 1.2.840.114 [id number] Univers 00:00:00 00:00:00 Jaxon TREJO 350.1.13.10 i ty of [facility] 4.2.7.2.[place] [phone] [address] 2021-03-07 2021-03-07 [facility] 1.2.840.114 [id number] Univers 00:00:00 00:00:00 Liborio RODRIGUEZ 350.1.13.10 i ty of [place] [phone] Ca dical NAL [address]44 [place] [facility] 2021-03-02 2021-03-02 Laboratory Only, Adc Pob2 Test [facility] 1.2 .840.114 [id number] Univers 15:45:00 15:45:00 Only Liborio Hall 350.1.13.10 ity of [facility] [facility] 4.2.7.2.[place] [phone] Ca dical NAL 225 [place] [facility] 2021-03-02 2021-03-02 [facility] [id number] Univers 11:00:00 12:15:26 LIBORIO aranda [facility] 2021-03-02 2021-03-02 [facility] [id number] Univers 11:00:00 11:00:00 LIBORIO rohan [facility] 2021-03-02 2021-03-02 [facility] [id number] Univers 11:00:00 11:00:00 LIBORIO rohan [facility] 2021-03-02 2021-03-02 Orders Doctor REYES 1.2.840.114 [id number] Univers 00:00:00 00:00:00 Only Unassigned, TOYA 350.1.13.10 ity [address] [facility] 4.2.7.2.686 [place] as [phone] [facility] 00[address] 2021-02-15 2021-02-15 Office [facility] 1.2.840.114 [id number] Univers 13:30:00 13:45:00 Visit Jaxon TREJO 350.1.13.10 i ty [facility] [place].2.[place] [phone] [facility] [address] 2021-02-15 2021-02-15 Outpatient R [facility] [id number] Univers 13:30:00 13:30:00 JAXON rosi [facility] 2021-02-15 2021-02-15 Outpatient R [facility] [id number] Univers 13:30:00 13:30:00 JAXON rosi [facility] 2021-02-13 2021-02-13 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 And 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 Alejandro, Simi Lab Main [facility] 1.2.8 40.114 [id number] Univers 13:40:33 13:55:33 Visit Maral Garsia 350.1.13.10 ity [facility] 4.2.7.2.[place] [phone] Ca dical NAL 353 [place] [facility] 2021-02-13 2021-02-13 Out[facility] [id number] Univers 13:45:00 13:45:00 MARAL ity [facility] 2021-02-13 2021-02-13 Refindy Burton [facility] 1.2.840.114 [id number] Univers 00:00:00 00:00:00 Shakeel PRIMARY 350.1.13.10 it y of [place].2.[place] [phone] Ca dical [address] [place] [address] 2021-02-03 2021-02-03 Outpatient R YA QUINTANA [facility] [id number] Univers 11:30:00 12:19:04 YA QUINTANA i ty of [facility] 2021-02-03 2021-02-03 Office Bairon [facility] 1.2.840.114 [id number] Univers 11:15:56 12:19:04 Visit Ya RODRIGUEZ 350.1.13.10 i ty of [place] 4.2.7.[place] [phone] Ca dical NAL [address]85 [place] [facility] 2021-02-02 2021-02-02 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 And 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 2, Adc Lab [facility] 1.2.840.114 [id number] Univers 14:19:44 16:42:57 Visit Liborio Hall 350.1.13.10 ity of [facility] 4.2.7.2.[place] [phone] Ca dical NAL 353 [place] [facility] 2021-02-02 2021-02-02 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 And 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 2, [facility] Lab [facility] 1.2.840.114 [id number] Univers 14:19:44 14:34:44 Visit Liborio Hall 350.1.13.10 ity of [place] [facility] 4.2.7.2.[place] [phone] Ca dical NAL [address] [place] [facility] 2021-02-02 2021-02-02 Outpatient Ab HALL [facility] [id number] Univers 14:30:00 14:30:00 LIBORIO aranda [facility] 2021-02-02 2021-02-02 Outpatient Ab HALL [facility] [id number] Univers 13:20:00 14:20:07 LIBORIO aranda [facility] 2021-02-02 2021-02-02 Office [facility] 1.2.840.114 [id number] [facility] 13:05:13 14:20:07 Visit Liborio RODRIGUEZ 350.1.13.10 i ty of [facility] 4.2.7.2.[place] [phone] [address] 2021-02-02 2021-02-02 [facility] 1.2.840.114 [id number] Univers 00:00:00 00:00:00 Aubrie Y HEALTH 350.1.13.10 i ty of [facility] 4.2.7.2.[place] [phone] [facility] [address] 2021-02-01 2021-02-01 Outpatient R [facility] [id number] Univers 09:03:31 23:59:00 AUBRIE ity [facility] 2021-02-01 2021-02-01 Outpatient R [facility] [id number] Univers 09:03:31 23:59:00 AUBRIE ity [facility] 2021-02-01 2021-02-01 [facility] 1.2.840.114 [id number] Univers 09:00:00 23:59:00 Encounter Aubrie Y HEALTH 350.1.13.10 ity of CLINICS 4.2.7.2.[place] [phone] [facility] [address] 2021-01-23 2021-01-23 [facility] [id number] Univers 15:24:58 23:59:00 LUZMA rosi [facility] 2021-01-23 2021-01-23 [facility] 1.2.840.114 [id number] Univers 15:15:00 23:59:00 Encounter Luzma RODRIGUEZ 350.1.13.10 ity of [facility] 4.2.7.2.[place] [phone] [facility] [address] 2021-01-23 2021-01-23 Outpatient R ETHAN [facility] [id number] Univers 14:20:00 16:21:39 LUZMA leanderrohan [facility] 2021-01-23 2021-01-23 Office Ethan [facility] 1.2.840.114 [id number] Univers 14:19:39 16:21:39 Visit Luzma RODRIGUEZ 350.1.13.10 ity [facility] 4.2.7.2.[place] [phone] Ca dical NAL 231 [place] [facility] 2021-01-23 2021-01-23 Orders Doctor REYES 1.2.840.114 [id number] Univers 00:00:00 00:00:00 Only Unassigned, TOYA 350.1.13.10 ity of [place] [facility] 4.2.7.2.686 Adelso as [phone] [facility] [address] 2021-01-15 2021-01-15 Emergency X Jo-Ann WHITEHEAD [facility] ERT [id number] Univers 15:11:00 19:02:00 ity of [facility] 2021-01-15 2021-01-15 Emergency Jo-Ann Whitehead [facility] 1.2.840.114 [id number] Univers 15:11:00 19:02:00 Dianna RODRIGUEZ 350.1.13.10 i ty [facility] 4.2.7.2.[place] [phone] [facility] 0[address] 2021-01-09 2021-01-09 Emergency X NOHEMY [facility] ERT [id number] Univers 09:42:00 11:39:00 ELSY aranda [facility] 2021-01-09 2021-01-09 Emergency [facility] 1.2.840.114 [id number] Univers 09:42:00 11:39:00 Elsy RODRIGUEZ 350.1.13.10 ity [facility] 4.2.7.2.[place] [id number] [facility] 0[address] 2020-12-20 2020-12-20 Outpatient R DANILO [facility] [id number] Univers 11:15:00 11:15:00 JAXON ity of [facility] 2020-12-20 2020-12-20 Office Danilo, [facility] 1.2.840.114 [id number] Univers 10:07:43 10:22:43 Visit Jaxon TREJO 350.1.13.10 i ty of [facility] 4.2.7.2.[place] [phone] [facility] [address] 2020-12-19 2020-12-19 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 And 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 Alejandro, Simi Lab Main [facility] 1.2.8 40.114 [id number] Univers 14:04:03 14:19:03 Visit Maral Garsia 350.1.13.10 ity of [place]2.[place] Profess[place] [phone] [facility] 353 [facility] 2020-12-19 2020-12-19 Outpatient R SAYRA [facility] [id number] Univers 14:15:00 14:15:00 MARAL aranda of [facility] 2020-12-19 2020-12-19 Orders Doctor REYES 1.2.840.114 [id number] Univers 00:00:00 00:00:00 Only Unassigned, TOYA 350.1.13.10 ity of [place] [facility] 4.2.7.2.686 Adelso as [phone] [facility] [address] 2020-12-18 2020-12-18 [facility]indy [facility] 1.2.840.114 [id number] Univers 00:00:00 00:00:00 Art MULTISPEC 350.1.13.10 ity of [place]2.[place].2.[place] C[place] [phone] [address] [facility] 2020-12-18 2020-12-18 Reggie [facility] 1.2.840.114 [id number] Univers 00:00:00 00:00:00 Art MULTISPEC 350.1.13.10 ity of [place] [phone] [facility] AND [address] [facility] 2020-12-08 2020-12-08 Ancillary Therapist, [facility] Pulmonary [facility] 1.2.840.114 [id number] Univers 10:23:30 11:23:30 Visit Art Crystal 350.1. 13.10 ity of [place] 4[place].2.[place] [phone] [facility] 296 [facility] 2020-12-08 2020-12-08 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 And 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 Lab, Mao - [facility] 1.2.840.1 14 [id number] Univers 08:46:42 09:01:42 Visit Satnam [facility] 350.1.13.10 ity of [place] 4.2.7.2.686 Adelso as Neno?Blea [id number] [facility] 353 [facility] Office [facility] 2020-12-08 2020-12-08 Outpatient R [facility] [id number] Univers 08:45:00 08:45:00 ity [facility] 2020-12-06 2020-12-06 Ancillary Therapist, [facility] Pulmonary [facility] 1.2.840.114 [id number] Univers 10:31:58 15:48:59 Visit Art [place] 350.1. 13.10 ity of [place] 4.2.7.2.[place] [phone] [address] 2020-12-06 2020-12-06 Outpatient R SATNAM [facility] [id number] Univers 14:30:00 14:59:05 [facility] 2020-12-06 2020-12-06 Office [facility] 1.2.840.114 [id number] Univers 14:17:11 14:59:05 Visit NearbyNow 350.1.13.10 it y of [facility] 4.2.7.2.686 Adelso as NENO?BLEA [phone] [facility] 220 [facility][note 3] 2020-12-06 2020-12-06 Outpatient R SATNAM [facility] [id number] Univers 14:30:00 14:30:00 [facility] 2020-12-06 2020-12-06 Outpatient R BONILLA [facility] [id number] [facility] 10:00:00 10:00:00 ART pulido f [facility] 2020-12-01 2020-12-01 Ancillary Therapist, [facility] Pulmonary [facility] 1.2.840.114 [id number] [facility] 10:32:58 11:17:49 Visit Art Crystal 350.1. 13.10 ity of [place].2.[place] [phone] Ca dical nal 296 [facility] 2020-12-01 2020-12-01 Refill [facility] 1.2.243.254 [id number] [facility] 00:00:00 00:00:00 Ramon Mckinley PRIMARY 350.1.13.10 i ty of [place]2.[place] [id number] Ca dical 044 [place] 2020-11-29 2020-11-29 Ancillary Therapist, [facility] Pulmonary [facility] 1.2.840.114 [id number] [facility] 10:28:44 15:02:28 Visit Art Crystal 350.1. 13.10 ity of [place] 4.2.7.2.[place] [phone] Ca dictx nal 296 [facility] 2020-11-22 2020-11-22 Ancillary Therapist, [facility] Pulmonary [facility] 1.2.840.114 [id number] [facility] 11:05:11 13:42:42 Visit Art Crystal 350.1. 13.10 ity of [place] 4.2.7.2.[place] [phone] Ca dical nal 296 [facility] 2020-11-20 2020-11-20 [facility] 1.2.840.114 [id number] Univers 00:00:00 00:00:00 Jaxon TREJO 350.1.13.10 i ty of [place].7.2.[place] [phone] [facility] [address] 2020-11-20 2020-11-20 [facility] 1.2.840.114 [id number] Univers 00:00:00 00:00:00 Jaxon NEIL 350.1.13.10 i ty of [facility] 4.2.7.2.[place] [id number] [facility] [address] 2020-11-19 2020-11-19 [facility] 1.2.840.114 [id number] Univers 00:00:00 00:00:00 Jaxno NEIL 350.1.13.10 i ty of [facility] 4.2.7.2.[place] [phone] [address] 2020-11-19 2020-11-19 [facility] 1.2.840.114 [id number] Univers 00:00:00 00:00:00 Shakeel PRIMARY 350.1.13.10 it y of [place] 4[place]2.[place].2.[place] [phone] Ca dical 044 [place] 2020-11-19 2020-11-19 [facility] 1.2.840.114 [id number] Univers 00:00:00 00:00:00 Jaxon SMITHY 350.1.13.10 i ty of [facility] 4.2.7.2.[place] [phone] [address] 2020-11-17 2020-11-17 Ancillary Therapist, Adc Pulmonary [facility] 1.2.840.114 [id number] Univers 10:21:38 11:21:38 Visit Art Crystal 350.1. 13.10 ity of [place].2.[place] [phone] Me dical nal 296 [facility] 2020-11-10 2020-11-10 Ancillary Therapist, Adc Pulmonary [facility] 1.2.840.114 [id number] [facility] 10:19:13 13:22:42 Visit Art Crystal 350.1. 13.10 ity of [place] 4[place].2.[place] [phone] Ca [address] 2020-11-08 2020-11-08 Office [facility] 1.2.840.114 [id number] Univers 08:58:37 11:43:57 Visit Liborio Rodriguez 350.1.13.10 i ty of [place] 4[place]2.7.2.[place] [phone] [address] 2020-11-08 2020-11-08 Office [facility] 1.2.840.114 [id number] Univers 08:58:37 11:43:57 Visit Liborio Rodriguez 350.1.13.10 i ty of [place] 4.2.7.2.[place] [phone] [address] 2020-11-08 2020-11-08 Ancillary Therapist, Simi [facility] 1.2.840.114 [id number] Univers 10:29:32 11:43:37 Visit Art Crystal 350.1. 13.10 ity of [place] 4[place]2.7.2.[place] [phone] [address] 2020-11-08 2020-11-08 Office [facility] 1.2.840.114 [id number] Univers 10:08:04 10:08:11 Visit Liborio Rodriguez 350.1.13.10 i ty of [place] 4.2.7.2.[place] [phone] [address] 2020-11-08 2020-11-08 Office [facility] 1.2.840.114 [id number] Univers 10:08:04 10:08:11 Visit Liborio Rodriguez 350.1.13.10 i ty of [place] 4.2.7.2.[place] [phone] [address] 2020-11-08 2020-11-08 Outpatient R ISABEL [facility] [id number] Univers 09:00:00 09:00:00 LIBORIO aranda [facility] 2020-11-04 2020-11-04 Outpatient R KIRK, [facility] [id number] Univers 12:00:00 12:00:00 SAM aranda of [facility] 2020-11-04 2020-11-04 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 And 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 Alejandro, [facility] Lab Main [facility] 1.2.8 40.114 [id number] Univers 11:11:44 11:26:44 Visit Sam Bradley 350.1.13.10 ity of [place] 4[place].2.[place] [id number] [facility] 353 [facility] 2020-11-04 2020-11-04 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 And 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 Alejandro, [facility] Lab Main [facility] 1.2.8 40.114 [id number] Univers 11:11:44 11:26:44 Visit Sam Bradley 350.1.13.10 ity of [place] 4[place].2.[place] [phone] [facility] [address] [facility] 2020-11-04 2020-11-04 Ancillary Therapist, [facility] Pulmonary [facility] 1.2.840.114 [id number] Univers 09:52:53 10:52:53 Visit Art Crystal 350.1. 13.10 [place] [phone] [facility] 296 [facility] 2020-11-04 2020-11-04 Outpatient R [facility] [id number] [facility] 10:00:00 10:00:00 ART aranda o f [facility] 2020-11-04 2020-11-04 Orders Doctor REYES 1.2.840.114 [id number] Univers 00:00:00 00:00:00 Only Unassigned, TOYA 350.1.13.10 ity of [place] [facility] 4.2.7.2.686 [place] [phone] [address] 2020-11-04 2020-11-04 Orders Doctor REYES 1.2.840.114 [id number] Univers 00:00:00 00:00:00 Only Unassigned, TOYA 350.1.13.10 ity of [place] [facility] 4.2.7.2.686 [place] as [phone] [facility] [address] 2020-11-03 2020-11-03 Letter Sophia [facility] 1.2.840.114 [id number] [facility] 00:00:00 00:00:00 (Out) , [facility] 350.1.13.10 i ty of [facility] [place] [phone] [facility] [address] 2020-11-01 2020-11-01 Ancillary Therapist, [facility] Pulmonary [facility] 1.2.840.114 [id number] Univers 10:07:19 11:07:19 Visit Art Crystal 350.1. 13.10 ity of [place] [phone] Ca dical nal 296 [facility] 2020-10-28 2020-10-28 Telephone Kenneth [facility] [id number] Univers 00:00:00 00:00:00 Summer Rodriguez 350.1.13.10 i ty of [place] [phone] Ca dical nal 296 [facility] 2020-10-25 2020-10-25 Ancillary Therapist, [facility] Pulmonary [facility] 1.2.840.114 [id number] Univers 10:08:08 13:18:39 Visit Art Crystal 350.1. 13.10 it[place] of [place] [phone] Ca dical nal 296 [facility] 2020-10-21 2020-10-21 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 And 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 Alejandro, [facility] Lab Main [facility] 1.2.8 40.114 [id number] Univers 12:38:49 12:53:49 Visit Liborio Hall 350.1.13.10 ity of [place] [phone] [facility] 353 [facility] 2020-10-21 2020-10-21 Office Isabel [facility] 1.2.840.114 [id number] [facility] 10:31:03 12:29:56 Visit Liborio Rodriguez 350.1.13.10 i ty of [place] [phone] [address] 2020-10-21 2020-10-21 Outpatient R ISABEL [facility] [id number] Univers 10:40:00 10:40:00 LIBORIO aranda [facility] 2020-10-21 2020-10-21 [facility] 1.2.840.114 [id number] Univers 00:00:00 00:00:00 Shakeel PRIMARY 350.1.13.10 it y of C[place].2.[place] [phone] [address] 2020-10-21 2020-10-21 [facility] 1.2.840.114 [id number] Univers 00:00:00 00:00:00 Liborio Rodriguez 350.1.13.10 i ty of [place] [phone] [address] 2020-10-21 2020-10-21 [facility] 1.2.840.114 [id number] Univers 00:00:00 00:00:00 Shakeel FAMILY 350.1.13.10 it y of MEDICINE 4.2.7.2.686 [place] CLINIC - [phone] [address] 2020-10-21 2020-10-21 [facility] 1.2.840.114 [id number] Univers 00:00:00 00:00:00 Shakeel PRIMARY 350.1.13.10 it y of C[place] [id number] [address] 2020-10-21 2020-10-21 [facility]indy [facility] 1.2.840.114 [id number] Univers 00:00:00 00:00:00 Liborio Rodriguez 350.1.13.10 i ty of [place] [phone] Ca dical nal 044 [facility] 2020-10-18 2020-10-19 Ancillary Therapist, [facility] Pulmonary [facility] 1.2.840.114 [id number] Univers 13:00:21 07:46:33 Visit Art Crystal 350.1. 13.10 ity of [place] [phone] [facility] 296 [facility] 2020-10-18 2020-10-18 Outpatient R BONILLA [facility] [id number] Univers 13:00:00 13:00:00 ART aranda o f [facility] 2020-10-18 2020-10-18 Orders Doctor REYES 1.2.840.114 [id number] Univers 00:00:00 00:00:00 Only Unassigned, TOYA 350.1.13.10 ity of [place] [facility] 4.2.7.2.686 [place] as [phone] [facility] 00[address] 2020-10-17 2020-10-17 Pre Visit Tim [facility] 1.2.438.767 [id number] Univers 00:00:00 00:00:00 Outreach Shakeel Rodriguez 350.1.13.10 ity of [place] [phone] Ca dictx nal 044 [facility] 2020-10-12 2020-10-12 Outpatient R DADA SANDHU [facility] [id number] Univers 15:00:00 15:00:00 ity of [facility] 2020-10-12 2020-10-12 Telephone Van Dyne, UNIVERSIT 1.2.840.114 [id number] Univers 00:00:00 00:00:00 Nephrology Y HEALTH 350.1.13.10 ity of [facility] 4.2.7.2.[place] [phone] [facility] 312 [address] 2020-10-10 2020-10-10 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 And 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 Alejandro, Simi Lab Main [facility] 1.2.8 40.114 [id number] Univers 10:13:27 10:28:27 Visit Shakeel Burton [place] 350.1.13.10 ity of [place] [phone] [facility] [address] 2020-10-10 2020-10-10 Outpatient R TIM [facility] [id number] Univers 10:00:00 10:00:00 SHAKEEL aranda [facility] 2020-10-05 2020-10-05 Telephone NILDA Martinez 1.2.840.114 [id number] Univers 00:00:00 00:00:00 [facility] 350.1.13.10 ity [facility] 4.2.7.2.[place] [phone] [place] [address] [address] 2020-09-29 2020-09-29 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 And 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 Draw, [facility] Lab [facility] 1.2.8 40.114 [id number] Univers 16:38:25 16:53:25 Visit Ivelisse Ho [facility] 350.1.13.10 ity of [place] [phone] [address] Office Building 2020-09-29 2020-09-29 Outpatient Ab HO [facility] [id number] Univers 15:00:00 15:00:00 IVELISSE aranda [facility] 2020-09-29 2020-09-29 Outpatient Ab PRABHAKARY [facility] [id number] Univers 15:00:00 15:00:00 IVELISSE aranda [facility] 2020-09-27 2020-09-27 Outpatient Ab HO [facility] [id number] Univers 11:00:00 11:00:00 IVELISSE aranda [facility] 2020-09-27 2020-09-27 Outpatient Ab HO [facility] [id number] Univers 11:00:00 11:00:00 IVELISSE aranda [facility] 2020-09-25 2020-09-25 [facility] 1.2.322.623 [id number] Univers 00:00:00 00:00:00 Shakeel [facility] 350.1.13.10 it y of MEDICINE 4.2.7.2.686 [place] CLINIC - [phone] [address] 2020-09-21 2020-09-21 Office [facility] 1.2.840.114 [id number] Univers 10:53:17 11:08:17 Visit Jaxon TREJO 350.1.13.10 i ty of [facility] 4.2.7.2.[place] [phone] [address] 2020-09-21 2020-09-21 Outpatient [facility] [id number] Univers 11:00:00 11:00:00 JAXON tabory [facility] 2020-09-02 2020-09-02 [facility] 1.2.840.114 [id number] Univers 00:00:00 00:00:00 Jaxon TREJO 350.1.13.10 i ty of [facility] 4.2.7.2.[place] [phone] [address] 2020-08-29 2020-08-29 Office Chan, [facility] 1.2.406.686 [id number] [facility] 09:06:54 10:22:12 Visit JayAbi Tinajero 350.1.13.10 ity of NATIONAL 4.2.7.2.686 [place] as BANK [phone] [facility]. [address] 2020-08-29 2020-08-29 Office Chan, UNIVERSIT 1.2.219.768 [id number] Univers 09:06:54 10:22:12 Visit Fady Tinajero 350.1.13.10 ity of NATIONAL 4.2.7.2.686 [place] BANK [phone] [facility]. 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 Lab Main [facility] 1.2.8 40.114 [id number] Univers 11:42:16 11:57:16 Visit Shakeel Burton 350.1.13.10 ity of [place] [phone] Ca dical nal 353 [facility] 2020-08-24 2020-08-24 Outpatient R TIM [facility] [id number] Univers 11:45:00 11:45:00 SHAKEEL ity [facility] 2020-08-20 2020-08-20 Refindy [facility] 1.2.840.114 [id number] Univers 00:00:00 00:00:00 Lisandra PRIMARY 350.1.13.10 it y of C[place].2.[place] [phone] Ca dical 044 [address] 2020-08-17 2020-08-17 Refindy [facility] 1.2.840.114 [id number] Univers 00:00:00 00:00:00 Jaxon SMITHY 350.1.13.10 i ty [place].2.[place] [phone] [address] 2020-08-15 2020-08-15 [facility] 1.2.840.114 [id number] Univers 00:00:00 00:00:00 Shakeel PRIMARY 350.1.13.10 it y of C[place] [phone] Ca dical 044 [address] 2020-08-15 2020-08-15 [facility] 1.2.840.114 [id number] Univers 00:00:00 00:00:00 Jaxon NEIL 350.1.13.10 i ty [place].2.[place] [id number] [address] 2020-08-08 2020-08-08 [facility] 1.2.840.114 [id number] Univers 00:00:00 00:00:00 Shakeel FAMILY 350.1.13.10 it y of MEDICINE 4.2.7.2.686 [place] CLINIC - [phone] [address] 2020-08-06 2020-08-06 Orders Doctor REYES 1.2.840.114 [id number] Univers 00:00:00 00:00:00 Only Unassigned, TOYA 350.1.13.10 ity of [place] [facility] 4.2.7.2.686 [place] [phone] [facility] 009 [address] 2020-08-05 2020-08-05 Outpatient R MIKEY [facility] [id number] Univers 09:30:00 09:30:00 LEXI aranda [facility] 2020-08-04 2020-08-04 Office Bairon [facility] 1.2.840.114 [id number] Univers 11:20:54 11:52:00 Visit Ya Rodriguez 350.1.13.10 i ty [facility] 4.2.[place].2.[place] [phone] Ca dic[address] 2020-08-04 2020-08-04 Outpatient R YA QUINTANA [facility] [id number] Univers 11:30:00 11:30:00 YA QUINTANA i ty of [facility] 2020-08-02 2020-08-02 [facility] 1.2.840.114 [id number] Univers 00:00:00 00:00:00 Shakeel FAMILY 350.1.13.10 it y of MEDICINE 4.2.7.2.686 [place] CLINIC - [phone] [address] 2020-07-29 2020-07-29 Outpatient R DANILO [facility] [id number] Univers 12:30:00 12:30:00 JAXON aranda [facility] 2020-07-29 2020-07-29 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 And 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 Alejandro, Simi Lab Main [facility] 1.2.8 40.114 [id number] Univers 11:02:03 11:17:03 Visit Jaxon Carrasco Junior 350.1.13.10 ity of [place] [phone] Ca dical [facility] 353 [facility] 2020-07-29 2020-07-29 Telephone [facility] 1.2.019.912 [id number] Univers 00:00:00 00:00:00 Jaxon TREJO 350.1.13.10 i ty of [facility] 4.[place].2.[place] [phone] [facility] [address] 2020-07-27 2020-07-27 Outpatient [facility] [id number] Univers 11:00:00 11:00:00 JAXON aranda [facility] 2020-07-27 2020-07-27 Office [facility] 1.2.840.114 [id number] Univers 10:30:35 10:45:35 Visit aJxon TREJO 350.1.13.10 i ty of [facility] 4.2.7.2.[place] [phone] [facility] [address] 2020-07-22 2020-07-22 Orders Doctor PULLIAM 1.2.840.114 [id number] Univers 00:00:00 00:00:00 Only Unassigned, TOYA 350.1.13.10 ity of [place] [facility] 4.2.7.2.686 [place] [phone] [facility] 009 [address] 2020-07-12 2020-07-12 Orders Doctor REYES 1.2.840.114 [id number] Univers 00:00:00 00:00:00 Only Unassigned, TOYA 350.1.13.10 ity of [place] [facility] 4.2.7.2.686 [place] [phone] [facility] 009 [address] 2020-07-05 2020-07-05 Outpatient R MIKEY [facility] [id number] Univers 09:30:00 09:30:00 LEXI aranda [facility] 2020-07-01 2020-07-01 Orders Doctor REYES Armstrong2.840.114 [id number] Univers 00:00:00 00:00:00 Only Unassigned, TOYA 350.1.13.10 ity of [place] [facility] 4.2.7.2.686 [place] [id number] [facility] [address] 2020-06-29 2020-06-29 Reggie Barreto [facility] 1.2.840.114 [id number] Univers 00:00:00 00:00:00 Bartolo PRIMARY 350.1.13.10 it y of C[place].2.[place] [phone] Ca dical 0[address] 2020-06-18 2020-06-18 Patient Tim [facility] 1.2.840.114 [id number] Univers 00:00:00 00:00:00 Secure Msg Shakeel FAMILY 350.1.13.10 ity of MEDICINE 4.2.7.2.686 [place] CLINIC - [phone] [facility] 311 [facility] 2020-06-17 2020-06-17 Orders Doctor REYES 1.2.840.114 [id number] Univers 00:00:00 00:00:00 Only Unassigned, TOYA 350.1.13.10 ity of [place] [facility] 4.2.7.2.686 [place] as [id number] [facility] [address] 2020-06-15 2020-06-15 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 And 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 [facility] UNIVERSIT 1.2.840.114 [id number] Univers 10:32:30 10:41:36 Visit Sandra [facility] 350.1.13.10 ity of CLINICS 4[place].2.[place] [id number] [facility] [address] 2020-06-15 2020-06-15 Office [facility] 1.2.691.892 [id number] Univers 09:26:13 09:56:13 Visit [facility] 350.1.13.10 ity of CLINICS [place] [id number] [facility] 0[address] 2020-06-15 2020-06-15 Outpatient R MAL [facility] [id number] Univers 09:30:00 09:30:00 SANDRA ity [facility] 2020-06-15 2020-06-15 Outpatient R MAL, [facility] [id number] Univers 09:30:00 09:30:00 SANDRA y [facility] 2020-06-14 2020-06-14 Outpatient R MIKEY, [facility] [id number] Univers 09:00:00 09:00:00 LEXI [facility] 2020-06-14 2020-06-14 Reggie Burton [facility] 1.2.840.114 [id number] Univers 00:00:00 00:00:00 Shakeel RAMÍREZ 350.1.13.10 it y of MEDICINE 4.2.7.2.686 [place] CLINIC - [phone] [address] 2020-06-08 2020-06-08 Outpatient R DANILO [facility] [id number] Univers 14:15:00 14:15:00 JAXON aranda [facility] 2020-06-08 2020-06-08 Ancillary Lucía Vegas [facility] 1.2.840. 114 [id number] Univers 13:12:02 13:57:02 Visit Tamiko Aceves 350.1.13.1 0 ity of [facility] 4.2.7.2.[place] [id number] [facility] [address] 2020-06-08 2020-06-08 Office Danilo [facility] 1.2.840.114 [id number] Univers 13:12:26 13:27:26 Visit Jaxon TREJO 350.1.13.10 i ty of [facility] 4.2.7.2.[place] 869.4530024 [facility] [address] 2020-06-08 2020-06-08 Orders Doctor PULLIAM 1.2.840.114 [id number] Univers 00:00:00 00:00:00 Only Unassigned, TOYA 350.1.13.10 ity of [place] [facility] 4.2.7.2.686 [place] [id number] [facility] [address]9 [address] 2020-05-25 2020-05-25 Office NILDA Palacios 1.2.946.964 [id number] Univers 13:57:31 15:41:39 Visit [facility] 350.1.13.10 i ty of [facility] 4.2.7.2.[place] [phone] [facility] [address] 2020-05-25 2020-05-25 Outpatient R PHILIP [facility] [id number] Univers 14:00:00 14:00:00 MARLEN aranda [facility] 2020-05-24 2020-05-24 Outpatient R LAWRENCE [facility] [id number] Univers 11:45:00 11:45:00 JAYNE aranda [facility] 2020-05-24 2020-05-24 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 And 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 Alejandro, Simi Lab Main [facility] 1.2.8 40.114 [id number] Univers 10:11:45 10:26:45 Visit Jayne Amos 350.1.13.10 ity of [place] [phone] Ca dical [facility] 353 [facility] 2020-05-24 2020-05-24 Orders Doctor REYES 1.2.840.114 [id number] Univers 00:00:00 00:00:00 Only Unassigned, TOYA 350.1.13.10 ity of [place] [facility] 4.2.7.2.686 [place] [phone] [facility] [address] 2020-05-23 2020-05-23 Office NILDA Giles 1.2.932.499 [id number] Univers 09:33:55 10:59:33 Visit Fady Tinajero 350.1.13.10 ity of [facility] 4.2.7.2.686 [place] BANK [phone] [facility] BLDG. [address] 2020-05-23 2020-05-23 Outpatient R CHAN [facility] [id number] Univers 09:45:00 09:45:00 FADY ity [facility] 2020-05-19 2020-05-19 Telephone NILDA Carrasco 1.2.840.114 [id number] Univers 00:00:00 00:00:00 Jaxon Tinajero 350.1.13.10 it y of [facility] 4.2.7.2.686 [place] BANK [phone] [facility] [address] 2020-05-18 2020-05-18 [facility] 1.2.840.114 [id number] Univers 08:32:46 09:18:28 Visit Trish Tinajero 350.1.13.10 it y of [facility] 4.2.7.2.686 [place] BANK [phone] [facility] [address] 2020-05-18 2020-05-18 Outpatient [facility] [id number] Univers 08:45:00 08:45:00 TRISH ity of [facility] 2020-05-13 2020-05-13 Hospital [facility] 1.2.840.114 [id number] Univers 12:40:28 23:59:00 Encounter Jaxon Rodriguez 350.1.13.10 ity [facility] 4.2.7.2.[place] [phone] [facility] [address] 2020-05-13 2020-05-13 Outpatient R [facility] [id number] Univers 00:00:00 00:00:00 JAXON aranda of [facility] 2020-05-11 2020-05-11 Telephone [facility] 1.2.840.114 [id number] Univers 00:00:00 00:00:00 [facility] 350.1.13.10 i ty of [facility] 4.2.7.2.[place] [phone] [facility] [address] 2020-04-28 2020-04-28 Outpatient [facility] [id number] Univers 14:50:00 14:50:00 OMAR ity of [facility] 2020-04-28 2020-04-28 Office [facility] 1.2.840.114 [id number] Univers 09:55:56 10:25:56 Visit Jaxon TREJO 350.1.13.10 i ty of [facility] 4.2.7.2.[place] [id number] [facility] [address] 2020-04-27 2020-04-27 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 And 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 Alejandro, Simi Lab Main [facility] 1.2.8 40.114 [id number] Univers 12:56:14 13:11:14 Visit Kirk Cervantes 350.1.13.10 ity of [place].2.[place] [phone] Ca dical nal [address] [facility] 2020-04-27 2020-04-27 Outpatient R SAM [facility] [id number] Univers 13:00:00 13:00:00 [facility] 2020-04-18 2020-04-18 Refill Doctor [facility] 1.2.840.114 [id number] Univers 00:00:00 00:00:00 Unassigned, PRIMARY 350.1.13.10 ity of [place] [facility] 4.2.7.2.[place] 038.2340322 Ca dical 044 [address] 2020-04-13 2020-04-13 Office Muguerrerou, UNIVERSIT 1.2.789.300 [id number] Univers 13:49:29 15:16:19 Visit [facility] 350.1.13.10 i ty of [facility] 4.2.7.2.[place] [phone] [facility] [address] 2020-04-13 2020-04-13 Outpatient R PHILIP [facility] [id number] Univers 14:00:00 14:00:00 [facility] 2020-04-04 2020-04-04 Telephone Jeronimou, UNIVERSIT 1.2.840.114 [id number] Univers 00:00:00 00:00:00 [facility] 350.1.13.10 i ty of [facility] 4.2.7.2.[place] [phone] [facility] [address] 2020-04-03 2020-04-03 Outpatient R FARZAD [facility] [id number] Univers 14:30:00 14:30:00 OMAR ity [facility] 2020-03-30 2020-03-30 Office Tim [facility] 1.2.840.114 [id number] Univers 15:03:41 15:33:41 Visit Shakeel RAMÍREZ 350.1.13.10 it y of MEDICINE 4.2.7.2.686 [place] CLINIC - [phone] [address] 2020-03-30 2020-03-30 Outpatient R BONILLA [facility] [id number] Univers 13:00:00 13:00:00 MOHAMMED ity o f [facility] 2020-03-30 2020-03-30 Orders Doctor REYES 1.2.840.114 [id number] Univers 00:00:00 00:00:00 Only Unassigned, TOYA 350.1.13.10 ity of [place] [facility] 4.2.7.2.686 [place] [phone] [facility] 009 [address] 2020-03-24 2020-03-24 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 And 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 Pcp-Lab [facility] 1.2.840.114 [id number] Univers 12:50:48 13:05:48 Visit FenceShakeel banuelos 350.1.13.10 ity of CARE 4[place]2.7.2.[place] [phone] [address] 2020-03-24 2020-03-24 Telemedici Tim [facility] 1.2.840.114 [id number] Univers 10:44:27 11:14:27 ne Visit Shakeel RAMÍREZ 350.1.13.10 i ty of MEDICINE 4.2.7.2.686 [place] CLINIC - [phone] [address] 2020-03-24 2020-03-24 Outpatient R TIM [facility] [id number] Univers 11:00:00 11:00:00 SHAKEEL taborrohan of [facility] 2020-03-24 2020-03-24 Telephone Bonilla [facility] 1.2.419.462 [id number] Univers 00:00:00 00:00:00 Art MULTISPEC 350.1.13.10 ity of [place] I[place]TY [place]2.7.2.[place] CENTER [id number] [facility] AND [place] [address] [facility] 2020-03-23 2020-03-23 Telephone Philip, CARLOSIT 1.2.840.114 [id number] Univers 00:00:00 00:00:00 [facility] 350.1.13.10 i ty of [facility] 4.2.7.2.[place] [phone] [facility] [address] 2020-03-23 2020-03-23 Telephone Philip, [facility] 1.2.840.114 [id number] Univers 00:00:00 00:00:00 [facility] 350.1.13.10 i ty of [facility] 4.2.7.2.[place] 448.5744361 [facility] [address] 2020-03-22 2020-03-22 Office NILDA Crystal 1.2.436.056 [id number] Univers 10:55:03 11:25:32 Visit [facility] 350.1.13.10 ity [facility] 4.2.7.2.[place] [phone] [facility] 0[address] 2020-03-22 2020-03-22 Outpatient R BONILLA ORANNIKA [facility] [id number] Univers 11:00:00 11:00:00 [facility] o f [facility] 2020-03-17 2020-03-17 Office Tim [facility] 1.2.840.114 [id number] Univers 08:07:57 09:27:51 Visit Shakeel FAMILY 350.1.13.10 it y of MEDICINE 4.2.7.2.686 [place] CLINIC - [phone] [address] 2020-03-17 2020-03-17 Outpatient R [facility] [id number] Univers 08:00:00 08:00:00 SHAKEEL ity [facility] 2020-03-15 2020-03-15 [id number] Univers 00:00:00 00:00:00 Shakeel FAMILY [id number] it y of MEDICINE [id number] [place] [facility] - [id number] [address] 2020-03-14 2020-03-14 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 Lab, [facility] [address] [facility] 1 .2.840.114 [id number] Univers 08:19:11 08:34:11 Visit Shakeel Burton 350.1.13.10 ity of MEDICINE [id number] [place] [facility] - [id number] [address] 2020-03-14 2020-03-14 Outpatient R [facility] [id number] Univers 08:15:00 08:15:00 ity of [facility] 2020-03-11 2020-03-11 Telephone Tim [facility] [id number] Univers 00:00:00 00:00:00 Shakeel RAMÍREZ [id number] it y of MEDICINE [id number] [place] [facility] - [phone] [address] 2020-03-10 2020-03-10 Outpatient R [facility] [id number] Univers 08:00:00 08:00:00 ity of [facility] 2020-03-02 2020-03-02 Transition Melanie Mejia [id number] Univers 00:00:00 00:00:00 of Care Jared A Kam 350.1.13.10 ity [facility] 4[place].7.2.[place] [phone] [facility] [address] 2020-02-29 2020-03-01 [facility] Kenyatta Boss 1 .2.840.114 [id number] Univers 15:42:00 17:30:00 Encounter Yevgeniy Sanchez 350.1.13.10 ity of [facility] 4.2.7.2.686 [place] [id number] [facility] [address] 2020-02-29 2020-02-29 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 And 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 Lab, [facility] [address] [facility] 1 .2.840.114 [id number] Univers 07:56:25 08:11:25 Visit Philip Marlen Gigi Dove FAMILY 3 [id number] ity of MEDICINE [id number] [place] [facility] - [id number] [address] 2020-02-29 2020-02-29 Outpatient R [facility] [id number] Univers 08:00:00 08:00:00 [facility] [facility] 2020-02-24 2020-02-24 [facility] 1.2.840.114 [id number] Univers 00:00:00 00:00:00 Shakeel FAMILY 350.1.13.10 it y of MEDICINE 4.2.7.2.686 [place] CL[place] - [phone] [address] 2020-02-22 2020-02-22 Office NILDA Giles 1.2.722.715 [id number] Univers 09:19:01 11:19:16 Visit Fday Rohan 350.1.13.10 ity of NATIONAL 4.2.7.2.686 [place] BANK [phone] [facility] BLDG. [address] 2020-02-22 2020-02-22 Outpatient R CHAN [facility] [id number] Univers 09:30:00 09:30:00 FADY [facility] 2020-02-22 2020-02-22 [facility] 1.2.840.114 [id number] Univers 00:00:00 00:00:00 Secure Msg Shakeel FAMILY 350.1.13.10 ity of MEDICINE 4.2.7.2.686 [place] CL[place]IC - [phone] [address] 2020-02-18 2020-02-18 Outpatient R CARMEN [facility] [id number] Univers 20:00:00 20:00:00 DAMEON [facility] 2020-02-18 2020-02-18 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 And 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 Lab, Sleep JENNIFER 1.2.840.114 [id number] Univers 15:27:33 17:57:33 Visit Dameon Morales 350.1.13.10 ity of [place] [phone] [facility] [address] 2020-02-18 2020-02-18 Pre Visit Tim [facility] 1.2.342.803 [id number] Univers 00:00:00 00:00:00 Outreach Shakeel FAMILY 350.1.13.10 i ty of MEDICINE 4.2.7.2.686 [place] - [phone] [address] 2020-02-18 2020-02-18 Orders NILDA Crystal 1.2.692.672 [id number] Univers 00:00:00 00:00:00 Only Art Y HEALTH 350.1.13.10 ity of [place] CL[place]ICS [place] [phone] [facility] 084 [address] 2020-02-17 2020-02-17 Telephone Philip [facility] 1.2.840.114 [id number] Univers 00:00:00 00:00:00 Marlen Y HEALTH 350.1.13.10 i ty of [place] CLINICS [place] [id number] [facility] [address] 2020-02-17 2020-02-17 Refill Tim [facility] 1.2.840.114 [id number] Univers 00:00:00 00:00:00 Shakeel FAMILY 350.1.13.10 it y of MEDICINE 4.2.7.2.686 [place] - [id number] [address] 2020-02-17 2020-02-17 Telephone Tim [facility] 1.2.812.331 [id number] Univers 00:00:00 00:00:00 Shakeel FAMILY 350.1.13.10 it y of MEDICINE 4.2.7.2.686 [place] - [phone] [address] 2020-02-15 2020-02-15 Laboratory Only, Pcp Test [facility] 1.2.840. 114 [id number] Univers 09:46:28 10:01:28 Only Luigi Crystalammed Fatme PRIMARY 350.1.1 3.10 ity of CARE [place].2.[place].2.[place] [id number] [address] 2020-02-15 2020-02-15 Office Momin, CARLOSIT 1.2.840.114 [id number] Univers 09:04:06 09:36:35 Visit Trish Y 350.1.13.10 it y of NATIONAL 4.2.7.2.686 [place] BANK [phone] [facility] [address] 2020-02-15 2020-02-15 Outpatient R LYDIA [facility] [id number] Univers 09:15:00 09:15:00 TRISH ity of [facility] 2020-02-03 2020-02-03 Office Tim [facility] 1.2.840.114 [id number] Univers 08:01:06 08:59:40 Visit Shakeel FAMILY 350.1.13.10 it y of MEDICINE 4.2.7.2.686 [place] - [phone] [address] 2020-02-03 2020-02-03 Outpatient R TIM [facility] [id number] Univers 08:00:00 08:00:00 SHAKEEL ity [facility] 2020-02-01 2020-02-01 Case Nik, [facility] 1.2.840.114 [id number] Univers 00:00:00 00:00:00 [facility] 350.1.13.10 it[place] [id number] [address] 2020-02-01 2020-02-01 Refill Tim [facility] 1.2.840.114 [id number] Univers 00:00:00 00:00:00 Shakeel FAMILY 350.1.13.10 it y of MEDICINE 4.2.7.2.686 [place] CL[place] - [phone] [address] 2020-01-26 2020-01-26 Telephone Tim [facility] 1.2.563.025 [id number] Univers 00:00:00 00:00:00 Shakeel FAMILY 350.1.13.10 it y of MEDICINE 4.2.7.2.686 [place] CL[place] - [id number] [address] 2020-01-25 2020-01-25 [facility] Nik, UNIVERSIT 1.2.840.114 [id number] Univers 09:56:36 23:59:00 Encounter Aubrie Tinajero [facility] 350.1.13.10 ity of CLINICS 4.[place] [id number] [facility] [address] 2020-01-25 2020-01-25 Outpatient R NIK [facility] [id number] Univers 00:00:00 00:00:00 AUBRIE ity [facility] 2020-01-25 2020-01-25 [facility] 1.2.840.114 [id number] Univers 00:00:00 00:00:00 Shakeel RAMÍREZ 350.1.13.10 it y of MEDICINE 4.2.7.2.686 [place] CL[place]IC - [phone] [address] 2020-01-22 2020-01-22 Office Tim [facility] 1.2.840.114 [id number] Univers 13:26:28 14:55:22 Visit Shakeel RAMÍREZ 350.1.13.10 it y of MEDICINE 4.2.7.2.686 [place] - [id number] [address] 2020-01-22 2020-01-22 Outpatient R TIM [facility] [id number] Univers 13:30:00 13:30:00 SHAKEEL [facility] 2020-01-22 2020-01-22 Orders Doctor PULLIAM 1.2.840.114 [id number] Univers 00:00:00 00:00:00 Only Unassigned, TOYA 350.1.13.10 ity of [place] [facility] 4.2.7.2.686 [place] [id number] [facility] 00[address] 2020-01-15 2020-01-15 Refill Doctor [facility] 1.2.840.114 [id number] Univers 00:00:00 00:00:00 Unassigned, PRIMARY 350.1.13.10 ity of [place] CARE [place]OD[place]ICK [id number] [facility] 044 [address] 2020-01-03 2020-01-03 Refill Doctor NILDA 1.2.685.360 [id number] Univers 00:00:00 00:00:00 Unassigned, Y HEALTH 350.1.13.10 ity of [place] CL[place]ICS [place] [id number] [place] [place] 2020-01-01 2020-01-01 Case [facility] 1.2.134.488 [id number] Univers 00:00:00 00:00:00 Management Art Y HEALTH 350.1.13.10 ity of [place] CL[place]ICS [place] [phone] [address] 2019-12-30 2019-12-30 Outpatient R [facility] [id number] Univers 20:00:00 20:00:00 ity of [facility] 2019-12-30 2019-12-30 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 And 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 Lab, Sleep JENNIFER 1.2.840.114 [id number] Univers 12:48:43 15:18:43 Visit Dameon Morales 350.1.13.10 ity [place] [id number] [facility] [address] 2019-12-29 2019-12-29 Patient Doctor [facility] 1.2.840.114 [id number] Univers 00:00:00 00:00:00 Secure Msg Unassigned, FAMILY 350.1.13.10 ity of [place] MEDICINE 4.2.7.2.686 [place] CLINIC - [id number] [address] 2019-12-29 2019-12-29 Refindy Burton [facility] 1.2.840.114 [id number] Univers 00:00:00 00:00:00 Shakeel FAMILY 350.1.13.10 it y of MEDICINE 4.2.7.2.686 [place] CL[place] - [phone] [address] 2019-12-28 2019-12-28 Office NILDA Giles 1.2.328.159 [id number] Univers 09:08:55 10:39:29 Visit Fady Y 350.1.13.10 ity of NATIONAL 4.2.7.2.686 [place] BANK [phone] [facility] BLDG. [address] 2019-12-28 2019-12-28 Outpatient R CHAN [facility] [id number] Univers 09:15:00 09:15:00 FADY ity of [facility] 2019-12-28 2019-12-28 Orders Doctor REYES 1.2.840.114 [id number] Univers 00:00:00 00:00:00 Only Unassigned, TOYA 350.1.13.10 ity of [place] [facility] 4.2.7.2.686 [place] [id number] [address] 2019-12-27 2019-12-27 Refill Doctor [facility] 1.2.840.114 [id number] Univers 00:00:00 00:00:00 Unassigned, FAMILY 350.1.13.10 ity of [place] MEDICINE 4.2.7.2.686 [place] CLINIC - [phone] [facility] [address] [facility] 2019-12-27 2019-12-27 Refill Doctor [facility] 1.2.840.114 [id number] Univers 00:00:00 00:00:00 Unassigned, PRIMARY 350.1.13.10 ity of [place] [id number] Me dical 044 [address] 2019-12-26 2019-12-26 Outpatient R [facility] [id number] Univers 14:45:00 14:45:00 ity of [facility] 2019-12-25 2019-12-25 Laboratory Only, Pcp Test [facility] 1.2.840. 114 [id number] Univers 10:09:47 10:24:47 Only Art Crystal PRIMARY 350.1.1 3.10 ity of CARE [place]2.[place] 367.1533701 Me dical [address] 2019-12-25 2019-12-25 Outpatient R BONILLA [facility] [id number] Univers 10:15:00 10:15:00 ART pulido f [facility] 2019-12-22 2019-12-22 Office Tim [facility] 1.2.840.114 [id number] Univers 08:06:23 09:56:50 Visit Shakeel FAMILY 350.1.13.10 it y of MEDICINE 4.2.7.2.686 [place] CL[place]IC - [id number] [address] 2019-12-22 2019-12-22 Outpatient R TIM [facility] [id number] Univers 08:00:00 08:00:00 SHAKEEL ity of [facility] 2019-12-14 2019-12-14 [facility] 1.2.840.114 [id number] Univers 08:56:57 23:59:00 Encounter Benny Rohan [facility] 350.1.13.10 ity of CLINICS 4[place] [id number] [facility] 8[address] 2019-12-14 2019-12-14 [facility] [id number] Univers 00:00:00 00:00:00 BENNY ity of [facility] 2019-12-08 2019-12-08 Refill Doctor [facility] 1.2.840.114 [id number] Univers 00:00:00 00:00:00 Unassigned, PRIMARY 350.1.13.10 ity of [place]ARE [place] [phone] Ca dical 044 [address] 2019-12-03 2019-12-03 Refill Doctor [facility] 1.2.840.114 [id number] Univers 00:00:00 00:00:00 Unassigned, PRIMARY 350.1.13.10 ity of [place]ARE [place] 356.4099954 Ca dical 044 [address] 2019-11-30 2019-11-30 Refill Santillan, [facility] 1.2.840.114 [id number] Univers 00:00:00 00:00:00 Tremaine PRIMARY 350.1.13.10 it y of [place] CARE 4.2.[place].2.[place] [id number] Ca dictx 044 [address] 2019-11-27 2019-11-27 Outpatient R BARRY HINTON [facility] [id number] Univers 14:00:00 14:00:00 ity [facility] 2019-11-27 2019-11-27 Telemedici Chacha Reddy [facility] 1.2.840.114 [id number] Univers 09:00:16 09:20:16 ne Visit Barry Hinton PRIMARY 350.1.13.10 ity of Lu Ashley R CARE 4.2.7.2.686 [facility] [phone] [facility] 044 [address] 2019-11-24 2019-11-25 Office Bong Mays UNIVERSIT 1.2.840.114 [id number] Univers 14:52:14 09:11:55 Visit Art Crystal Fatme Y HEALTH 350.1. 13.10 ity of CLINICS [place] [phone] [facility] [address] 2019-11-24 2019-11-24 Outpatient [facility] [id number] Univers 15:00:00 15:00:00 [facility] 2019-11-21 2019-11-21 Refill Doctor [facility] 1.2.840.114 [id number] Univers 00:00:00 00:00:00 Unassigned, FAMILY 350.1.13.10 ity of [place] MEDICINE 4.2.7.2.686 [place] CLINIC - [phone] [address] 2019-11-13 2019-11-14 Office Lisandra Escoto [facility] 1.2.840.114 [id number] Univers 10:58:52 07:52:19 Visit Barry Hinton PRIMARY 350.1.13.10 ity of C[place]2.[place] 128.7168084 Ca dictx [address] 2019-11-13 2019-11-13 Hospital [facility] 1.2.840.114 [id number] Univers 15:12:04 23:59:00 Encounter Art Y HEALTH 350.1.13.10 ity of [place] CLINICS [place]2.[place].2.[place] [phone] [facility] [address] 2019-11-13 2019-11-13 Outpatient [facility] [id number] Univers 14:30:00 14:30:00 ART aranda o f [facility] 2019-11-11 2019-11-11 Office Lydia UNIVERSIT 1.2.840.114 [id number] Univers 09:25:20 10:02:09 Visit Trish Tinajero 350.1.13.10 it y of NATIONAL 4.2.7.2.686 [place] BANK [phone] [facility]. [address] 2019-11-11 2019-11-11 Outpatient R LYDIA [facility] [id number] Univers 09:30:00 09:30:00 TRISH ity of [facility] 2019-11-10 2019-11-10 Office Fady Giles UNIVERSIT 1.2.840. 114 [id number] Univers 09:04:47 10:29:42 Visit Josh Renteria 350.1.13.10 ity of [facility] 4.2.7.2.686 [place] BANK [phone] [facility]. [address] 2019-11-10 2019-11-10 Outpatient R MYRA [facility] [id number] Univers 09:15:00 09:15:00 JOSH ity of [facility] 2019-11-10 2019-11-10 Laboratory Only, Pcp Test [facility] 1.2.840. 114 [id number] Univers 08:39:56 08:54:56 Only Art Crystal PRIMARY 350.1.1 3.10 ity of C[place] [phone] [facility] [address] 2019-11-10 2019-11-10 Transition Melanie Mejia 1.2.840.114 [id number] Univers 00:00:00 00:00:00 of Care Jared A Vickers 350.1.13.10 ity of [place]2.[place] [id number] [facility] [address] 2019-11-04 2019-11-07 Hospital Brett Luciano 1.2.840. 114 [id number] Univers 17:11:00 17:55:00 Encounter Dona Badillo 350.1.13.10 ity of Hospital 4.2.7.2.686 [place] [id number] [address] 2019-11-02 2019-11-02 [facility] 1.2.840.114 [id number] Univers 00:00:00 00:00:00 Bartolo FAMILY 350.1.13.10 it y of MEDICINE 4.2.7.2.686 [place] CLINIC - [phone] [facility] [address] [facility] 2019-11-02 2019-11-02 Refill Christian-Nwo [facility] 1.2.840.114 [id number] Univers 00:00:00 00:00:00 sa, Christian PRIMARY 350.1.13.10 [facility] 4.2.7.2.686 [place] PAVILLION [phone] [address] 2019-10-31 2019-10-31 Outpatient R UNKNOWN, [facility] [id number] Univers 13:45:00 13:45:00 ATTENDING ity of [facility] 2019-10-28 2019-10-28 Telephone NILDA Crystal 1.2.840.114 [id number] Univers 00:00:00 00:00:00 Art Y HEALTH 350.1.13.10 ity of [place] CLINICS [place] [id number] [address] 2019-10-27 2019-10-27 Outpatient R BONILLA [facility] [id number] Univers 15:00:00 15:00:00 [facility] o f [facility] 2019-10-27 2019-10-27 Telemedici CARLOS CrystalIT 1.2.840.114 [id number] Univers 09:04:00 10:55:09 ne Visit Art Y HEALTH 350.1.13.10 ity of [place] CLINICS [place] [id number] [address] 2019-10-21 2019-10-21 Office Adelfo UNIVERSIT 1.2.655.463 [id number] Univers 11:27:40 12:15:39 Visit Santhisri Y HEALTH 350.1.13.10 ity of CLINICS [place] [id number] [facility] [address] 2019-10-21 2019-10-21 Outpatient R ADELFO [facility] [id number] Univers 11:30:00 11:30:00 SANTHISRI ity of [facility] 2019-10-16 2019-10-16 Ancillary Malena Medina [facility] 1 .2.840.114 [id number] Univers 10:21:55 11:01:55 Visit Angela Levy PRIMARY 350.1.13.10 ity of C[place]2.[place] [id number] [facility] [address] 2019-10-12 2019-10-12 Telephone Bonilla, [facility] 1.2.840.114 [id number] Univers 00:00:00 00:00:00 [facility] HEALTH 350.1.13.10 ity of [place] CLINICS 4[place]2.[place].2.[place] [id number] [facility] 0[address] 2019-10-12 2019-10-12 Orders Doctor REYES 1.2.840.114 [id number] Univers 00:00:00 00:00:00 Only Unassigned, TOYA 350.1.13.10 ity of [place] [facility] 4.2.7.2.686 [place] [id number] [facility] 009 [address] 2019-10-09 2019-10-09 Telephone Bonilla [facility] 1.2.840.114 [id number] Univers 00:00:00 00:00:00 [facility] HEALTH 350.1.13.10 ity of [place] CLINICS 4[place] [id number] [facility] [address] [place] [address] 2019-10-08 2019-10-08 Outpatient R [facility] [id number] Univers 10:20:00 10:20:00 ity of [facility] 2019-09-25 2019-09-25 Ancillary Malena Medina [facility] 1 .2.840.114 [id number] Univers 08:30:04 09:10:04 Visit Angela Levy PRIMARY 350.1.13.10 ity of CARE [place] 126.5787873 [facility] [address] 2019-09-25 2019-09-25 Outpatient R [facility] [id number] Univers 08:40:00 08:40:00 ity of [facility] 2019-09-24 2019-09-24 [facility] 1.2.898.286 [id number] Univers 00:00:00 00:00:00 Marmarth FAMILY 350.1.13.10 it y of MEDICINE 4.2.7.2.686 [place] CLINIC - [phone] [address] 2019-09-23 2019-09-23 Orders Doctor REYES 1.2.840.114 [id number] Univers 00:00:00 00:00:00 Only Unassigned, TOYA 350.1.13.10 ity of [place] [facility] 4.2.7.2.686 [place] [id number] [address] 2019-09-22 2019-09-22 Office NILDA Crystal 1.2.533.541 [id number] Univers 13:53:29 14:55:31 Visit [facility] HEALTH 350.1.13.10 ity of Replaced By [facility] CLINICS 4.2.7.2.[place] [id number] [address] 2019-09-22 2019-09-22 Outpatient [facility] [id number] Univers 14:00:00 14:00:00 MOHAMMED ity o f [facility] 2019-09-22 2019-09-22 Refill NILDA Crystal 1.2.056.722 [id number] Univers 00:00:00 00:00:00 [facility] HEALTH 350.1.13.10 ity of [place] CLINICS [place] [id number] [address] 2019-09-11 2019-09-11 Office [facility] 1.2.668.027 [id number] Univers 14:00:48 14:30:48 Visit James FAMILY 350.1.13.10 it y of MEDICINE 4.2.7.2.686 [place] CLINIC - [id number] [address] 2019-09-11 2019-09-11 Outpatient R NEGRITA [facility] [id number] Univers 14:00:00 14:00:00 [facility]-09-11 2019-09-11 Ancillary Malena Medina [facility] 1 .2.840.114 [id number] Univers 11:19:31 13:14:39 Visit Angela Levy PRIMARY 350.1.13.10 ity of C[place] [id number] [facility] [address] 2019-09-07 2019-09-07 Telemedici [facility] 1.2.840.114 [id number] Univers 09:40:00 10:00:00 ne Visit Maye PRIMARY 350.1.13.10 i ty of CARE 4[place]2.7.2.[place] [id number] Ca dical 044 [address] 2019-09-07 2019-09-07 Outpatient R ARAVIND [facility] [id number] Univers 09:40:00 09:40:00 [facility] 2019-08-27 2019-08-27 Ancillary Malena Medina [facility] 1 .2.840.114 [id number] Univers 10:19:34 10:59:34 Visit Angela Levy PRIMARY 350.1.13.10 ity of C[place] 264.3546174 Ca dictx 179 [address] 2019-08-13 2019-08-24 Ancillary Malena Medina [facility] 1 .2.840.114 [id number] Univers 10:19:36 11:06:11 Visit Angela Levy PRIMARY 350.1.13.10 ity [place] C[place] [id number] [facility] [address] 2019-08-19 2019-08-19 Outpatient R CARMEN [facility] [id number] Univers 20:00:00 20:00:00 DAMEON [facility] 2019-08-19 2019-08-19 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 And 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 Lab, Sleep JENNIFER 1.2.840.114 [id number] Univers 15:36:33 18:06:33 Visit Dameon Morales 350.1.13.10 ity of [place] [id number] [facility] [address] 2019-08-19 2019-08-19 Orders Barry Hinton [facility] 1.2.840.114 [id number] Univers 00:00:00 00:00:00 Only S HEALTH 350.1.13.10 it y of [place] [id number] Med ical HOANG [address] CLINIC 2019-08-17 2019-08-17 Laboratory Only, Pcp Test [facility] 1.2.840. 114 [id number] Univers 10:01:55 10:16:55 Only Jamaal, Barry S PRIMARY 350.1.13.10 ity of [place] 507.3005030 Ca dictx [address] 2019-08-17 2019-08-17 Outpatient R JAMAAL BARRY [facility] [id number] Univers 10:00:00 10:00:00 ity of [facility] 2019-07-31 2019-08-14 Office Christian Murillo [facility] 1.2.840.114 [id number] Univers 16:20:55 09:50:47 Visit Barry Hinton S PRIMARY 350.1.13.10 ity of C[place]2.[place] [id number] Ca dical 044 [address] 2019-08-13 2019-08-13 Outpatient R NEGRITA [facility] [id number] Univers 15:51:52 23:59:00 JAMES ity of [facility] 2019-08-13 2019-08-13 [facility] 1.2.840.114 [id number] Univers 15:51:00 23:59:00 Encounter Marmarth PRIMARY 350.1.13.10 ity of C[place] 225.9157903 Ca dical 807 [address] 2019-08-13 2019-08-13 Office Hermannofeliasommer, [facility] 1.2.194.702 [id number] Univers 15:47:02 16:36:56 Visit Marmarth PRIMARY 350.1.13.10 it y of CARE [place].2.[place] 071.7007724 Ca dical 044 [address] 2019-08-13 2019-08-13 Outpatient R FLOWER [facility] [id number] Univers 10:20:00 10:20:00 ANGELA ity of [facility] 2019-08-13 2019-08-13 Telephone [facility] 1..840.114 [id number] Univers 00:00:00 00:00:00 sa, Christian PRIMARY 350.1.13.10 [facility] 4.2.7.2.686 [place] PAVILLION [id number] [facility] 0[address] 2019-08-12 2019-08-12 Outpatient R [facility] [id number] Univers 11:00:00 11:00:00 ity of [facility] 2019-08-10 2019-08-10 Office CARLOS MominIT 1.2.840.114 [id number] Univers 08:55:09 09:32:07 Visit Trish Y 350.1.13.10 it y of NATIONAL 4.2.7.2.686 [place] BANK [phone] [facility] BLDG. 136 Rosine 2019-08-10 2019-08-10 Outpatient R LYDIA [facility] [id number] Univers 09:00:00 09:00:00 TRISH ity of [facility] 2019-08-03 2019-08-03 Outpatient R [facility] [id number] Univers 11:20:00 11:20:00 ity of [facility] 2019-07-31 2019-07-31 Outpatient R BARRY HINTON [facility] [id number] Univers 16:20:00 16:20:00 ity [facility] 2019-07-30 2019-07-30 Ancillary Malena Medina [facility] 1 .2.840.114 [id number] Univers 13:28:03 14:08:03 Visit Angela Levy PRIMARY 350.1.13.10 ity of [place]2.[place] [phone] Ca dictx 179 Rosine 2019-07-28 2019-07-28 Telephone [facility] [id number] Univers 00:00:00 00:00:00 Tremaine FAMILY 350.1.13.10 it y of [place] MEDICINE 4.2.7.2.686 [place] CLINIC - [phone] [address] 2019-07-28 2019-07-28 Telephone [facility] [id number] Univers 00:00:00 00:00:00 Tremaine FAMILY 350.1.13.10 it y of [place] MEDICINE 4.2.7.2.686 [place] CLINIC - [phone] [address] 2019-07-22 2019-07-22 Orders Doctor REYES 1.2.840.114 [id number] Univers 00:00:00 00:00:00 Only Unassigned, TOYA 350.1.13.10 ity of [place] [facility] 4.2.7.2.686 [place] [phone] [facility] 009 Rosine 2019-07-17 2019-07-17 Ancillary Malena Medina [facility] 1 .2.840.114 [id number] Univers 09:58:57 10:49:36 Visit Angela Levy PRIMARY 350.1.13.10 it[place] [phone] [facility] 179 [address] 2019-07-17 2019-07-17 Outpatient R FLOWER [facility] [id number] Univers 10:00:00 10:00:00 ANGELA itrohan of [facility] 2019-07-09 2019-07-09 Office Joseph MUNGUIA 1.2.840.114 [id number] Univers 08:31:06 10:38:28 Visit Rocael sheets 350.1.13.10 ity of NATIONAL 4.2.7.2.686 [place] BANK [phone] [facility] BLDG. [address] 2019-07-09 2019-07-09 Outpatient R MARIELLAPARAM [facility] [id number] Univers 08:45:00 08:45:00 RENE ROCAEL ity of [facility] 2019-07-09 2019-07-09 Orders Doctor REYES 1.2.840.114 [id number] Univers 00:00:00 00:00:00 Only Unassigned, TOYA 350.1.13.10 ity of [place] [facility] 4.2.7.2.686 [place] [phone] [facility] [address] 2019-07-08 2019-07-08 Outpatient R [facility] [id number] Univers 16:00:00 16:00:00 ity of [facility] 2019-07-08 2019-07-08 Telemedici Oscar Gibbs [facility]ERS[facility] 1.2.840.1 [id number] Univers 08:25:50 08:55:50 ne Visit Kirk Cervantes TRENA 350.1.13.10 [place] of [place] [phone] [facility] [address] 2019-07-03 2019-07-03 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 And 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 Pcp-Lab [facility] 1..840.114 [id number] Univers 10:16:04 10:26:04 Visit Diana Patrick 350.1.13.10 [place] [phone] Ca dictx [address] 2019-07-03 2019-07-03 Outpatient R DARNELL [facility] [id number] Univers 10:20:00 10:20:00 DIANA ity of [facility] 2019-07-03 2019-07-03 Telephone [facility] 1.2.840.114 [id number] Univers 00:00:00 00:00:00 Christian santiago 350.1.13.10 [place] of [place] - [phone] [address] 2019-06-29 2019-06-29 Refill [facility] 1.2.840.114 [id number] Univers 00:00:00 00:00:00 sa Christian PRIMARY 350.1.13.10 ity of [place] CARE 4.2.7.2.686 [place] PAVILLION [phone] Ca dical [address] 2019-06-08 2019-06-08 Telephone Oscar Gibbs [facility]IVERS[facility] 1.2.840.11 4 [id number] Univers 00:00:00 00:00:00 Y HEALTH 350.1.13.10 i ty of [place] [phone] [facility] [address] 2019-06-08 2019-06-08 Refill [facility] 1.2.840.114 [id number] Univers 00:00:00 00:00:00 Tremaine FAMILY 350.1.13.10 it y of [place] MEDICINE 4.2.7.2.686 [place] CL[place]IC - [phone] [address] 2019-06-01 2019-06-01 Outpatient Ab [facility]AL [facility] [id number] Univers 08:45:00 08:45:00 ROCAEL SHEETS [facility] 2019-05-26 2019-05-26 Telephone [facility] 1.2.585.037 [id number] Univers 00:00:00 00:00:00 Tremaine FAMILY 350.1.13.10 it y of [place] MEDICINE 4.2.7.2.686 [place] - [phone] [address] 2019-05-22 2019-05-22 Ancillary Malena Medina [facility] 1 .2.840.114 [id number] Univers 09:55:49 10:55:49 Visit Angela Levy PRIMARY 350.1.13.10 it[place] [phone] Ca dical [address] 2019-05-22 2019-05-22 Outpatient Ab LEVY [facility] [id number] Univers 10:20:00 10:20:00 ANGELA aranda [facility] 2019-05-20 2019-05-21 Telemedici Oscar Gibbs UN[facility]ERS[facility] 1.2.840.1 14 [id number] Univers 08:04:11 10:04:03 ne Visit Kirk Cervantes [facility] 350.1.13.10 ity of [place] [phone] [address] 2019-05-20 2019-05-20 Outpatient R SAM [facility] [id number] Univers 15:00:00 15:00:00 KIRK ity [facility] 2019-05-19 2019-05-20 Telemedici Tremaine Santillan [facility] 1. 2.840.114 [id number] Univers 08:48:34 14:43:38 ne Visit Dona Badillo FAMILY 350.1.13.10 ity of MEDICINE 4.2.7.2.686 [place] CL[place] - [phone] [address] 2019-05-20 2019-05-20 Telephone Tyrell [facility] 1.2.693.768 [id number] Univers 00:00:00 00:00:00 Tremaine FAMILY 350.1.13.10 it y of [facility] 4.2.7.2.686 [place] CL[place]IC - [phone] [address] 2019-05-19 2019-05-19 Outpatient R [facility] [id number] Univers 10:10:00 10:10:00 ity of [facility] 2019-05-15 2019-05-15 Refill Doctor [facility] 1.2.840.114 [id number] Univers 00:00:00 00:00:00 Unassigned, FAMILY 350.1.13.10 ity of [place] MEDICINE 4.2.7.2.686 [place] CLINIC - [phone] [address] 2019-04-20 2019-05-09 Office Lisandra Escoto [facility] 1.2.840.114 [id number] Univers 08:49:15 16:56:34 Visit Jose Armando Goldstein 350.1.13.10 ity of MEDICINE 4.2.7.2.686 [place] - [phone] [address] 2019-05-07 2019-05-07 Orders Doctor PULLIAM 1.2.840.114 [id number] Univers 00:00:00 00:00:00 Only Unassigned, TOYA 350.1.13.10 ity of [place] [facility] 4.2.7.2.686 [place] [id number] [address] 2019-05-07 2019-05-07 Refill Nathalie [facility] 1.2.840.114 [id number] Univers 00:00:00 00:00:00 Dona Robertson FAMILY 350.1.13.10 i ty of MEDICINE 4.2.7.2.686 [place] CL[place] - [phone] [address] 2019-05-05 2019-05-05 Outpatient Ab VACA [facility] [id number] Univers 09:00:00 09:00:00 LEXI [facility] 2019-05-05 2019-05-05 Refill Jevon [facility] 1.2.840.114 [id number] Univers 00:00:00 00:00:00 Lisandra FAMILY 350.1.13.10 it y of MEDICINE 4.2.7.2.686 [place] CL[place] - [phone] [address] 2019-05-03 2019-05-03 Refill [facility] 1.2.840.114 [id number] Univers 00:00:00 00:00:00 Unassigned, FAMILY 350.1.13.10 ity of [place] MEDICINE 4.2.7.2.686 [place] CL[place]IC - [phone] [address] 2019-04-28 2019-04-28 Outpatient Ab VACA [facility] [id number] Univers 09:00:00 09:00:00 LEXI aranda [facility] 2019-04-28 2019-04-28 Orders Doctor PULLIAM 1.2.840.114 [id number] Univers 00:00:00 00:00:00 Only Unassigned, TOYA 350.1.13.10 ity of [place] [facility] 4.2.7.2.686 [place] [phone] [address] 2019-04-27 2019-04-27 Orders Doctor REYES 1.2.840.114 [id number] Univers 00:00:00 00:00:00 Only Unassigned, TOYA 350.1.13.10 ity of [place] [facility] 4.2.7.2.686 [place] [phone] [facility] [address] 2019-04-22 2019-04-23 Office Lisandra Escoto [facility] 1.2.840.114 [id number] Univers 08:46:25 13:26:04 Visit Ramon Alcazar FAMILY 350.1.13.10 ity of MEDICINE 4.2.7.2.686 [place] - [phone] [address] 2019-04-22 2019-04-22 [facility] [id number] Univers 08:50:00 14:36:41 RAMON ity [facility] 2019-04-22 2019-04-22 Telephone Perla, [facility] 1..840.114 74 [id number] Univers 00:00:00 00:00:00 Pati RAMÍREZ 350.1.13.10 i ty of MEDICINE 4.2.7.2.686 [place] CL[place]IC - [phone] [address] 2019-04-20 2019-04-20 Outpatient Ab [facility] [id number] Univers 10:04:58 23:59:00 JOSE ARMANDO ity [facility] 2019-04-20 2019-04-20 [facility] 1..840.114 [id number] Univers 10:04:00 23:59:00 Encounter [facility] 350.1.13.10 ity of Pediatric 4.2.7.2.686 [facility] [phone] [facility] 8[address] 2019-04-20 2019-04-20 Outpatient Ab [facility] [id number] Univers 08:50:00 10:43:29 JOSE ARMANDO ity [facility] 2019-04-20 2019-04-20 Refill [facility] 1.2.840.114 [id number] Univers 00:00:00 00:00:00 sa Christian RAMÍREZ 350.1.13.10 ity [place] [facility] - [phone] [address] 2019-04-15 2019-04-15 Telephone [facility] 1.2.063.768 [id number] Univers 00:00:00 00:00:00 Tremaine FAMILY 350.1.13.10 it y of [place] MEDICINE 4.2.7.2.686 [place] - [phone] [address] 2019-04-14 2019-04-14 Orders Doctor REYES 1.2.840.114 [id number] Univers 00:00:00 00:00:00 Only Unassigned, TOYA 350.1.13.10 ity of [place] [facility] 4.2.7.2.686 [place] [id number] [facility] 00[address] 2019-04-08 2019-04-08 Office Lydia [facility] 1.2.840.114 [id number] Univers 08:43:26 14:05:14 Visit Trish Tinajero 350.1.13.10 it y of NATIONAL 4.2.7.2.686 [place] BANK [phone] [facility] BLDG. [address] 2019-04-06 2019-04-06 Refill [facility] 1.2.840.114 [id number] Univers 00:00:00 00:00:00 Christian santiago 350.1.13.10 ity of [place] - [phone] [address] 2019-04-04 2019-04-04 Telephone [facility] 1.2.546.450 [id number] Univers 00:00:00 00:00:00 Tremaine FAMILY 350.1.13.10 it y of [place] MEDICINE 4.2.7.2.686 [place] - [phone] [address] 2019-04-02 2019-04-02 Office Joseph [facility] 1.2.840.114 [id number] Univers 08:49:20 09:04:20 Visit Rocael sheets Y 350.1.13.10 ity of NATIONAL 4.2.7.2.686 [place] BANK [phone] [facility] [address] 2019-04-02 2019-04-02 Orders Doctor REYES 1.2.840.114 [id number] Univers 00:00:00 00:00:00 Only Unassigned, TOYA 350.1.13.10 ity of [place] [facility] 4.2.7.2.686 [place] [phone] [facility] 00[address] 2019-03-30 2019-03-30 Refill Doctor [facility] 1.2.544.144 [id number] Univers 00:00:00 00:00:00 Unassigned, Y HEALTH 350.1.13.10 ity of [place] [phone] [facility] [address] 2019-03-30 2019-03-30 Orders Doctor REYES 1.2.840.114 [id number] Univers 00:00:00 00:00:00 Only Unassigned, TOYA 350.1.13.10 ity of [place] [facility] 4.2.7.2.686 [place] [phone] [facility] 009 [address] 2019-03-25 2019-03-25 Telephone Kaya Rodriguez [facility] 1.2.840.11 4 [id number] Univers 00:00:00 00:00:00 Y HEALTH 350.1.13.10 i ty of CL[place] [phone] [facility] [address] 2019-03-24 2019-03-24 Office CARLOS Crystal 1.2.359.224 [id number] [id number] Univers 15:52:23 16:39:22 Visit [facility] Y HEALTH 350.1.13.10 ity of [place] CL[place]ICS [place] [id number] [facility] [address] 2019-03-24 2019-03-24 Orders Doctor REYES 1.2.840.114 [id number] Univers 00:00:00 00:00:00 Only Unassigned, TOYA 350.1.13.10 ity of [place] [facility] 4.2.7.2.686 [place] [id number] [address] 2019-03-21 2019-03-21 Telephone Tyrell [facility] 1.2.226.124 [id number] Univers 00:00:00 00:00:00 Tremaine FAMILY 350.1.13.10 it y of [place] MEDICINE 4.2.7.2.686 [place] CL[place]IC - [phone] [address] 2019-03-20 2019-03-20 Office Trmeaine Santillan [place] 1.2.8 40.114 [id number] Univers 12:52:23 14:38:10 Visit Pati Perla 350.1.13.10 ity of MEDICINE 4.2.7.2.686 [place] - [phone] [address] 2019-03-20 2019-03-20 Orders Doctor REYES 1.2.840.114 [id number] Univers 00:00:00 00:00:00 Only Unassigned, TOYA 350.1.13.10 ity of [place] [facility] 4.2.7.2.686 [place] [phone] [address] 2019-03-18 2019-03-18 Office Oscar Gibbs [facility] 1.2.840.114 [id number] Univers 14:24:32 16:34:40 Visit Jayne Amos [facility] 350.1.13.10 ity of [place] [phone] [address] 2019-03-18 2019-03-18 Orders Doctor REYES 1.2.840.114 [id number] Univers 00:00:00 00:00:00 Only Unassigned, TOYA 350.1.13.10 ity of [place] [facility] 4.2.7.2.686 [place] [phone] [address] 2019-03-17 2019-03-17 Orders Doctor REYES 1.2.840.114 [id number] Univers 00:00:00 00:00:00 Only Unassigned, TOYA 350.1.13.10 ity of [place] [facility] 4.2.7.2.686 [place] 516.7575854 [address] 2019-03-16 2019-03-16 Telephone [facility] 1.2.840.114 [id number] Univers 00:00:00 00:00:00 sa Christian FAMILY 350.1.13.10 it[place] - 527.8250326 [address] 2019-03-16 2019-03-16 Telephone Christian-Nwo [facility] 1.2.840.114 [id number] Univers 00:00:00 00:00:00 Christian santiago FAMILY 350.1.13.10 ity [place] - [phone] [address] 2019-03-13 2019-03-13 Orders Doctor REYES 1.2.840.114 [id number] Univers 00:00:00 00:00:00 Only Unassigned, TOYA 350.1.13.10 ity of [place] [facility] 4.2.7.2.686 [place] [id number] [facility] [address] 2019-03-11 2019-03-11 Abstract Kaya Rodriguez [facility]ERS[facility] 1.2.840.114 [id number] Univers 00:00:00 00:00:00 Y HEALTH 350.1.13.10 i ty of [place] [phone] [facility] [address] 2019-02-16 2019-02-16 Emergency X RAMONA [facility] ERT [id number] Univers 18:49:33 22:11:00 MINA [facility] 2019-02-12 2019-02-14 Outpatient X NATHALIE [facility] [id number] Univers 12:45:58 17:35:00 DONA [facility] 2019-02-11 2019-02-11 Office Oscar Gibbs [facility] 1.2.840.114 [id number] Univers 14:49:27 16:34:54 Visit Jayne Amos Y HEALTH 350.1.13.10 it[place] of [place] [id number] [facility] [address] 2019-02-10 2019-02-10 Orders Doctor PULLIAM 1.2.840.114 [id number] Univers 00:00:00 00:00:00 Only Unassigned, TOYA 350.1.13.10 ity of [place] [facility] 4.2.7.2.686 [place] [phone] [facility] 009 [address] 2019-01-16 2019-01-17 Observatio nullFlavo [facility] 4003 [id number] Memoria 20:14:12 03:33:00 n ab HannahRolando 07 l [facility] 2019-01-16 2019-01-17 Observatio nullFlavo [facility] [id number] [id number] Memoria 20:14:12 03:33:00 n ab Marshall 07 l [facility] 2019-01-16 2019-01-16 Outpatient Christian, MHSE MHSE [id number] 14:14:12 21:33:00 Virajasmitara Quintanilla [facility] 2019-01-16 2019-01-16 Outpatient E MHSE MED [id number] 17:45:00 17:45:00 [facility] tata [facility] 2018-11-18 2018-11-18 Reggie Pena [facility] 1.2.840.114 [id number] Univers 00:00:00 00:00:00 Jordi FAMILY 350.1.13.10 it y of [facility] MEDICINE 4.2.7.2.686 [place] CL[place]IC - [phone] [address] 2018-11-13 2018-11-13 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 And 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 Lab, [address] [facility] 1 .2.840.114 [id number] Univers 07:50:27 08:05:27 Visit Kirk Cervantes 350.1.13.10 ity of MEDICINE 4.2.7.2.686 [place] CL[place] - [phone] [address] 2018-11-12 2018-11-12 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 And 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 [facility] UN[facility]ERSIT 1.2.840.114 [id number] Univers 14:51:21 14:59:40 Visit Kirk Cervantes HEALTH 350.1.13.10 it[place] of [place] 524.0180078 [facility] [address] 2018-11-12 2018-11-12 Office Kaya Rodriguez [facility]ERS[facility] 1.2.840.114 [id number] Univers 13:13:23 14:45:33 Visit Kirk Cervantes HEALTH 350.1.13.10 it[place] [phone] [facility] [address] 2018-11-11 2018-11-11 Office Lian, [facility] 1.2.840.114 [id number] Univers 14:23:35 14:53:35 Visit Benny Y HEALTH 350.1.13.10 i ty [place] 380.0620770 [facility] [address] 2018-11-06 2018-11-06 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 And 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 Lab, [place] [facility] [address]w [address]. [facility] 1 .2.840.114 [id number] Univers 12:58:42 13:13:42 Visit Jayne Amos FAMILY 350.1.13.10 ity of MEDICINE 4.2.7.2.686 [place] - [phone] [address] 2018-11-05 2018-11-05 Refindy Munguia, [facility] 1.2.347.296 [id number] Univers 00:00:00 00:00:00 Pulmonary Y HEALTH 350.1.13.10 it[place] [id number] [facility] [address] 2018-11-05 2018-11-05 Refindy Kaye [facility] 1.2.231.765 [id number] Univers 00:00:00 00:00:00 Conner P Y HEALTH 350.1.13.10 i ty [place] [phone] [facility] [address] 2018-10-30 2018-10-30 Telephone Lawrence [facility] 1.2.840.114 [id number] Univers 00:00:00 00:00:00 Jayne Busch Y HEALTH 350.1.13.10 it[place] 503.0851496 [facility] [address] 2018-10-28 2018-10-28 Refindy Badillo [facility] 1.2.840.114 [id number] Univers 00:00:00 00:00:00 Dona A FAMILY 350.1.13.10 i ty of MEDICINE 4.2.7.2.686 [place] CL[place]IC - 196.4425563 [address] 2018-10-22 2018-10-22 Letter Lawrence [facility] 1.2.516.738 [id number] Univers 00:00:00 00:00:00 (Out) Jayne Busch [place] 350.1.13.10 ity of [place] [phone] [place] [address] [address] 2018-10-22 2018-10-22 Patient Lawrence, UNIVERSIT 1.2.900.311 [id number] Univers 00:00:00 00:00:00 Secure Msg EdwinLumaCyte 350.1.13.10 ity of CL[place] [id number] [place] [address] [address] 2016-02-03 2016-02-03 Outpatient MHIE MHIE [id number] Memoria 15:15:00 15:15:00 10 richar Marshall 2016-02-03 2016-02-03 Outpatient MHIE MHIE [id number] Memoria 15:15:00 15:15:00 10 richar Marshall 2015-10-11 2015-10-11 Outpatient MHIE MHIE [id number] Memoria 15:15:00 15:15:00 09 richar Marshall 2015-10-11 2015-10-11 Outpatient MHIE MHIE [id number] Memoria 15:15:00 15:15:00 09 richar Marshall 2015-10-07 2015-10-07 Outpatient MHIE MHIE [id number] Memoria 15:30:00 15:30:00 06 richar Marshall 2015-10-07 2015-10-07 Outpatient MHIE MHIE [id number] Memoria 15:30:00 15:30:00 06 richar Marshall 2015-09-28 2015-09-29 [facility] 4003 [id number] Memoria 12:48:00 04:59:00 ab Marshall 09 [facility] 2015-09-28 2015-09-29 Outpatient [facility] [id number] [id number] Memoria 12:48:00 04:59:00 ab Marshall 09 [facility] 2015-09-28 2015-09-28 Outpatient ANTHONY Moreno MHSE [id number] 07:48:00 23:59:00 Pati Wisdom 2015-09-21 2015-09-21 Bedded [facility] [id number] Memoria 13:30:00 16:32:00 Outpatient r Rolando 06 [facility] 2015-09-21 2015-09-21 Bedded [facility]Flavo [facility] [id number] Memoria 13:30:00 16:32:00 Outpatient r Austin 06 [facility] 2015-09-21 2015-09-21 Outpatient Mukhopadhya MHSE MHSE [id number] 08:30:00 11:32:00 yJose Angel 2015-09-13 2015-09-13 Outpatient MHIE MHIE [id number] Memoria 09:00:00 09:00:00 08 richar Austin 2015-09-13 2015-09-13 Outpatient MHIE MHIE [id number] Memoria 09:00:00 09:00:00 08 richar Austin 2015-08-09 2015-08-09 Outpatient MHIE MHIE [id number] Memoria 10:15:00 10:15:00 07 richar HannahRolando 2015-08-09 2015-08-09 Outpatient MHIE MHIE [id number] Memoria 10:15:00 10:15:00 07 richar Austin 2015-07-20 2015-07-21 [facility] [id number] [id number] Memoria 12:02:00 04:59:00 r Rolando 03 [facility] 2015-07-20 2015-07-21 Outpatient [facility] [id number] [id number] Memoria 12:02:00 04:59:00 r Rolando 03 [facility] 2015-07-20 2015-07-20 Outpatient ANTHONY Vallecillo MHSE [id number] 07:02:00 23:59:00 Gideon E 03 2015-06-06 2015-06-07 [facility] 4003 [id number] Memoria 21:10:00 04:59:00 r Austin 95 [facility] 2015-06-06 2015-06-07 Outpatient [facility] 4003 [id number] Memoria 21:10:00 04:59:00 r Rolando 95 [facility] 2015-06-06 2015-06-06 Outpatient ANTHONY Moreno MHSE [id number] 16:10:00 23:59:00 Pati 95 Alyx 2015-06-03 2015-06-03 Outpatient MHIE MHIE [id number] Memoria 15:15:00 15:15:00 05 richar Marshall 2015-06-03 2015-06-03 Outpatient MHIE MHIE [id number] Memoria 15:15:00 15:15:00 05 richar Marshall 2015-02-15 2015-02-15 Outpatient MHIE MHIE [id number] Memoria 15:15:00 15:15:00 04 richar Marshall 2015-02-15 2015-02-15 Outpatient MHIE MHIE [id number] Memoria 15:15:00 15:15:00 04 richar Marshall 2015-01-20 2015-01-20 Outpatient MHIE MHIE [id number] Memoria 14:30:00 14:30:00 01 richar Marshall 2015-01-20 2015-01-20 Outpatient MHIE MHIE [id number] Memoria 14:30:00 14:30:00 01 richar Marshall 2014-12-07 2014-12-07 Outpatient MHIE MHIE [id number] Memoria 14:30:00 14:30:00 02 richar Marshall 2014-12-07 2014-12-07 Outpatient MHIE MHIE [id number] Memoria 14:30:00 14:30:00 02 richar Marshall 2014-10-26 2014-11-25 OP Therapy nullFlavo [facility] [id number] Memoria 20:40:00 04:59:00 Patients r [place] 02 l [facility] 2014-10-26 2014-11-25 OP Therapy nullFlavo [facility] [id number] Memoria 20:40:00 04:59:00 Patients r [place] 02 l [facility] 2014-10-26 2014-11-24 Outpatient Josh, 2.16.840. 2.16.840.1. [id number] 15:40:00 23:59:00 Pati 1.390209. 614233.3.61 02 Alyx 3.615.52 5.52 2014-11-23 2014-11-24 Outpt Diag nullFlavo [facility] [id number] Memoria 17:39:00 04:59:00 Services r Outpatient 00 richar Piña 2014-11-23 2014-11-24 Outpt Diag nullFlavo [facility] [id number] Memoria 17:39:00 04:59:00 Services r Outpatient 00 richar Piña 2014-11-23 2014-11-23 Outpatient Marcio, [facility] [id number] 12:39:00 23:59:00 Brennan 00 2014-11-05 2014-11-05 Outpatient IE IE [id number] Memoria 08:00:00 08:00:00 03 richar Austin 2014-11-05 2014-11-05 Outpatient MHIE IE [id number] Memoria 08:00:00 08:00:00 03 richar Rolando 2014-09-23 2014-10-23 OP Therapy nullFlavo [facility] [id number] Memoria 19:45:00 04:59:00 Patients r [place] 01 [facility] 2014-09-23 2014-10-23 OP Therapy nullFlavo [facility] [id number] Memoria 19:45:00 04:59:00 Patients r [place] 01 [facility] 2014-09-23 2014-10-22 Outpatient Josh, 2.16.840. 2.16.840.1. [id number] 14:45:00 23:59:00 Pati 1.419102. 143889.3.61 01 Alyx 3.615.52 5.52 2014-09-17 2014-09-17 Outpatient IE IE [id number] Memoria 09:30:00 09:30:00 00 richar Marshall 2014-09-17 2014-09-17 Outpatient IE IE [id number] Memoria 09:30:00 09:30:00 00 richar Austin 2013-12-08 2013-12-09 [facility] [id number] [id number] Memoria 17:41:00 04:59:00 r Rolando 00 [facility] 2013-12-08 2013-12-09 [facility] [id number] [id number] Memoria 17:41:00 04:59:00 r Austin [facility] 2013-12-08 2013-12-08 Outpatient Jsoh, 2.16.840. 2.16.840.1. [id number] 12:41:00 23:59:00 Pati 1.494332. 291955.3.61 00 Alyx 3.615.0.1 5.0.591 18 4597-10-01 2013-12-03 Outpatient ariasFlavo [facility] 4003 [id number] Memoria 18:35:00 04:59:00 r [place] 74 [facility] 2013-12-02 2013-12-03 Outpatient nullFlavo [facility] [id number] Memoria 18:35:00 04:59:00 r [place] 74 [facility] 2013-12-02 2013-12-02 Outpatient Josh, 2.16.840. [id number]. [id number] 13:35:00 23:59:00 Pati [id number] Alyx 3.615.0.1 5.0.048 41 0591-12-29 2012-03-01 Outpatient nullFlavo [id number] Memoria 21:00:00 23:59:00 r [facility] 03 richar [place] 2012-03-01 2012-03-01 Outpatient nullFlavo [id number] Memoria 21:00:00 23:59:00 r [facility] 03 richar HannahRolando 2011-04-05 2011-04-05 Outpatient nullFlavo [id number] Memoria 17:52:00 23:59:00 r [facility] 02 richar [place] 2011-04-05 2011-04-05 Outpatient nullFlavo [id number] Memoria 17:52:00 23:59:00 r [facility] 02 richar [place] 2011-03-01 2011-03-01 Outpatient nullFlavo [id number] Memoria 15:52:00 15:52:00 r [facility] 64 richar [place] 2011-03-01 2011-03-01 Outpatient nullFlavo [id number] Memoria 15:52:00 15:52:00 r Sergei 64 richar [place] Results Test Description Test Time Test Comments Results Result Comments Source HEMATOLOGY 2019-01-16 21:03:00 Test Item Value Reference Range Interpretation Comme nts Platelet (test code = Platelet) 286 133450 [facility] 21:03:00 Test Item Value Reference Range Interpretation Comments MPV (test code = MPV) 8.5 7.4-10.4 [facility]FAEHGCVVJ9144-10-04 21:03:00 Test Item Value Reference Range Interpretation Comments Segs (test code = Segs) 91.9 45.0-75.0 [facility]aa[facility]xdHNHHRLXBJH7102-67-08 21:03:00 Test Item Value Reference Range Interpretation Comments Lymphocytes (test code = Lymphocytes) 5.0 20.0-40.0 [facility]ld[facility]zrfMIAVXCBRIC2374-51-55 21:03:00 Test Item Value Reference Range Interpretation Comments Monocytes (test code = Monocytes) 2.4 2.0-12.0 [facility] HospitalPjeltfjRELEJEEHPQ6710-89-85 21:03:00 Test Item Value Reference Range Interpretation Comments Basophils (test code = 0.7 See_Comment [Aut omated message] The Basophils) system which ge nerated this result tra nsmitted reference range : <=1.0. The reference r carolynn was not used to int erpret this result as normal/abnormal . [facility] HospitalBkbqpduJZJRDQBSVJ0675-55-22 21:03:00 Test Item Value Reference Range Interpretation Comments Neutrophils # (test code = Neutrophils 10.1 1.5-8.1 #) [facility] HospitalMqreyrfIAQMYUVGFP4747-95-37 21:03:00 Test Item Value Reference Range Interpretation Comments Lymphocytes # (test code = Lymphocytes 0.5 1.0-5.5 #) [facility] HospitalIfhecsdLNDLENVGSO4060-47-49 21:03:00 Test Item Value Reference Range Interpretation Comments Monocytes # (test code 0.3 See_Comment [Aut omated message] The = Monocytes #) system which generated this result tra nsmitted reference range : <=0.8. The reference r carolynn was not used to int erpret this result as normal/abnormal . [facility] HospitalTpgsbgrRDUSQMBTGO0128-20-97 21:03:00 Test Item Value Reference Range Interpretation Comments Basophils # (test code 0.1 See_Comment [Aut omated message] The = Basophils #) system which generated this result tra nsmitted reference range : <=0.2. The reference r carolynn was not used to int erpret this result as normal/abnormal . [facility]ITALYIXHIZT3705-65-32 21:03:00 Test Item Value Reference Range Interpretation Comments Troponin-I (test code no gt See_Comment [Auto mated message] The = Troponin-I) system which g enerated this result transmit todd reference range : <=0.40. The reference r carolynn was not used to interpr et this result as kimberli l/abnormal. [facility] UKEVZXC1443-26-95 21:03:00 Test Item Value Reference Range Interpretation Comments BNP (test code = BNP) 75 [facility] CenterCHEM SLSPJ4742-71-16 21:03:00 Test Item Value Reference Range Interpretation Comments Lipase Lvl (test code = Lipase Lvl) 130 73-393 [facility] HospitalOdhnkjfWNXCFVKOQHYQ0815-82-41 21:03:00 Test Item Value Reference Range Interpretation Comments AGAP (test code = AGAP) 12.6 10.0-20.0 [facility]UtcqkzuSICJVKKUBLEP6203-49-81 21:03:00 Test Item Value Reference Range Interpretation Comments B/C Ratio (test code = B/C Ratio) 16 1 6-25 [facility] HospitalDspmvhuJKEQGLLUETCJ7509-74-58 21:03:00 Test Item Value Reference Range Interpretation Comments Globulin (test code = Globulin) 3.8 2.7-4.2 [facility]wayRxwfqohULPCLSXFSEKE2794-36-41 21:03:00 Test Item Value Reference Range Interpretation Comments A/G Ratio (test code = A/G Ratio) 0.9 1 0.7-1.6 [facility] HospitalPyqejiyBCTMRASMWKFO9076-05-22 21:03:00 Test Item Value Reference Range Interpretation Comments Glucose Lvl (test code = Glucose Lvl) 177 70-99 [facility] LakewayPyefdilBXECZYZJBYPM9084-12-69 21:03:00 Test Item Value Reference Range Interpretation Comments BUN (test code = BUN) 35 7-22 [facility] LakewaySfiicymLTBDSNSXAROW6426-29-97 21:03:00 Test Item Value Reference Range Interpretation Comments Creatinine Lvl (test code = Creatinine 2.24 0.50-1.40 Lvl) [facility] HospitalWsmqdhuAAQHZPQVRXFY8926-78-60 21:03:00 Test Item Value Reference Range Interpretation Comments Sodium Lvl (test code = Sodium Lvl) 139 135-145 [facility]MccpsjfSWERUBWEIIFR2738-52-80 21:03:00 Test Item Value Reference Range Interpretation Comments Potassium Lvl (test code = Potassium 4.6 3.5-5.1 Lvl) [facility] HospitalSzyfthfZPEGDWNXVPSB7956-37-34 21:03:00 Test Item Value Reference Range Interpretation Comments Chloride Lvl (test code = Chloride Lvl) 105 95-109 [facility] HospitalFzgbihjITXYOGFOUWYC2128-13-55 21:03:00 Test Item Value Reference Range Interpretation Comments CO2 (test code = CO2) 26 24-32 [facility] HospitalUabyaxjSGXWHQUQFWBK8324-08-18 21:03:00 Test Item Value Reference Range Interpretation Comments Calcium Lvl (test code = Calcium Lvl) 9.5 8.5-10.5 [facility] HospitalGrmslanEEQDQMLMNNTL7959-72-04 21:03:00 Test Item Value Reference Range Interpretation Comments Total Protein (test code = Total 7.2 6.4-8.4 Protein) [facility] HospitalVawdoidFEXEBFOSGOKX2531-72-42 21:03:00 Test Item Value Reference Range Interpretation Comments Albumin Lvl (test code = Albumin Lvl) 3.4 3.5-5.0 [facility] HospitalOkukupeHTVHADCWOXIV0179-56-34 21:03:00 Test Item Value Reference Range Interpretation Comments ALT (test code = ALT) 28 See_Comment [Auto mated message] The system which ge nerated this result transmit todd reference range : <=65. The reference range was not used to interpr et this result as kimberli l/abnormal. [facility] HospitalXctnmpmPCIJAWKKBCXX6931-07-66 21:03:00 Test Item Value Reference Range Interpretation Comments AST (test code = AST) 22 See_Comment [Auto mated message] The system which ge nerated this result transmit todd reference range : <=37. The reference range was not used to interpr et this result as kimberli l/abnormal. [facility] HospitalDyfagwvQTBJNNPHUSGS8931-18-42 21:03:00 Test Item Value Reference Range Interpretation Comments Alk Phos (test code = Alk Phos) 82 39-136 [facility] HospitalCsugktfTQOORZNKQSPK8397-76-30 21:03:00 Test Item Value Reference Range Interpretation Comments Bili Total (test code = Bili Total) 0.4 0.2-1.3 [facility] HospitalLurynjnAYDUXNQDWYSX1185-97-41 21:03:00 Test Item Value Reference Range Interpretation Comments eGFR (test code = eGFR) 29 [facility] CenterQpxundnFUHKBBBLHJ9568-28-88 21:03:00 Test Item Value Reference Range Interpretation Comments WBC (test code = WBC) 11.0 3.7-10.4 [facility] HospitalVvmutnwGOKIGAFXHX4918-73-20 21:03:00 Test Item Value Reference Range Interpretation Comments RBC (test code = RBC) 4.22 4.70-6.10 [facility] HospitalBgqkmfmBENYESVINS4514-66-92 21:03:00 Test Item Value Reference Range Interpretation Comments Hgb (test code = Hgb) 13.4 14.0-18.0 [facility] HospitalZupvpgcORUEPRSKTY2265-39-02 21:03:00 Test Item Value Reference Range Interpretation Comments Hct (test code = Hct) 40.2 42.0-54.0 [facility] HospitalZdxlhndJRKDRIYIPK9457-74-27 21:03:00 Test Item Value Reference Range Interpretation Comments MCV (test code = MCV) 95.2 80.0-94.0 [facility] HospitalIrpdkvrMFXSBAJPLN2767-84-23 21:03:00 Test Item Value Reference Range Interpretation Comments MCH (test code = MCH) 31.7 pg 27.0-31.0 [facility] HospitalOxvnxmyMGOXMBFSMN3827-41-02 21:03:00 Test Item Value Reference Range Interpretation Comments MCHC (test code = MCHC) 33.3 32.0-36.0 [facility] HospitalYydefpkNWYKXFDWSB9438-18-86 21:03:00 Test Item Value Reference Range Interpretation Comments RDW (test code = RDW) 14.3 11.5-14.5 [facility] HospitalRskvwowJGIUOITYGK0111-00-40 21:03:00 Test Item Value Reference Range Interpretation Comments Platelet (test code = Platelet) 286 133-450 [facility] HospitalQlnykotGOZZTFOBZI5062-78-31 21:03:00 Test Item Value Reference Range Interpretation Comments MPV (test code = MPV) 8.5 7.4-10.4 [facility] HospitalXpethyvKXXRRUAZAC4114-70-56 21:03:00 Test Item Value Reference Range Interpretation Comments Segs (test code = Segs) 91.9 45.0-75.0 [facility] HospitalMyyttozDAFAIXKNRA5879-37-68 21:03:00 Test Item Value Reference Range Interpretation Comments Lymphocytes (test code = Lymphocytes) 5.0 20.0-40.0 [facility] HospitalKpktqagOGJKRZDGVD4456-95-49 21:03:00 Test Item Value Reference Range Interpretation Comments Monocytes (test code = Monocytes) 2.4 2.0-12.0 [facility] HospitalIgycgwmJGMNRSIEYH1128-98-35 21:03:00 Test Item Value Reference Range Interpretation Comments Basophils (test code = 0.7 See_Comment [Aut omated message] The Basophils) system which ge nerated this result tra nsmitted reference range : <=1.0. The reference r carolynn was not used to int erpret this result as normal/abnormal . [facility]YpyejieARTHWEETWN7841-13-97 21:03:00 Test Item Value Reference Range Interpretation Comments Neutrophils # (test code = Neutrophils 10.1 1.5-8.1 #) [facility] HospitalXsjwypgRSAXMONYQY3682-70-57 21:03:00 Test Item Value Reference Range Interpretation Comments Lymphocytes # (test code = Lymphocytes 0.5 1.0-5.5 #) [facility] HospitalIxhtsvxMPUNVDHRCX3683-88-21 21:03:00 Test Item Value Reference Range Interpretation Comments Monocytes # (test code 0.3 See_Comment [Aut omated message] The = Monocytes #) system which generated this result tra nsmitted reference range : <=0.8. The reference r carolynn was not used to int erpret this result as normal/abnormal . [facility] HospitalOalokesZHCBUFMLYU4673-83-98 21:03:00 Test Item Value Reference Range Interpretation Comments Basophils # (test code 0.1 See_Comment [Aut omated message] The = Basophils #) system which generated this result tra nsmitted reference range : <=0.2. The reference r carolynn was not used to int erpret this result as normal/abnormal . [facility] CenterCAREtonkidsAC HFSJLPY1056-48-54 21:03:00 Test Item Value Reference Range Interpretation Comments Troponin-I (test code no gt See_Comment [Auto mated message] The = Troponin-I) system which g enerated this result transmit todd reference range : <=0.40. The reference r carolynn was not used to interpr et this result as kimberli l/abnormal. [facility] CenterCARDIAC IFOOMXI3069-79-37 21:03:00 Test Item Value Reference Range Interpretation Comments BNP (test code = BNP) 75 [facility] CenterCHEM OTFAE2133-23-27 21:03:00 Test Item Value Reference Range Interpretation Comments Lipase Lvl (test code = Lipase Lvl) 130 73-393 [facility] HospitalHpqksvoWKSHPYINMTVD0495-34-88 21:03:00 Test Item Value Reference Range Interpretation Comments AGAP (test code = AGAP) 12.6 10.0-20.0 [facility] HospitalVndhelfRPRSKKKZVNZU2376-86-34 21:03:00 Test Item Value Reference Range Interpretation Comments B/C Ratio (test code = B/C Ratio) 16 1 6-25 [facility] HospitalVxqkiujHRQYOLXIZXBS2126-05-43 21:03:00 Test Item Value Reference Range Interpretation Comments Globulin (test code = Globulin) 3.8 2.7-4.2 [facility] HospitalHjcvkhcQUWSMAQQWWZR7195-77-93 21:03:00 Test Item Value Reference Range Interpretation Comments A/G Ratio (test code = A/G Ratio) 0.9 1 0.7-1.6 [facility] HospitalOmmtkvoEKUDMDUPKTJX4371-50-89 21:03:00 Test Item Value Reference Range Interpretation Comments Glucose Lvl (test code = Glucose Lvl) 177 70-99 [facility] HospitalYwlllxiQQZVTOKBQBTE6205-07-27 21:03:00 Test Item Value Reference Range Interpretation Comments BUN (test code = BUN) 35 7-22 [facility] HospitalKuyqpvoALCDMAFHBEWJ8984-20-67 21:03:00 Test Item Value Reference Range Interpretation Comments Creatinine Lvl (test code = Creatinine 2.24 0.50-1.40 Lvl) [facility] HospitalPorewojYGTZIRNZCLCF9417-65-75 21:03:00 Test Item Value Reference Range Interpretation Comments Sodium Lvl (test code = Sodium Lvl) 139 135-145 [facility] HospitalQdjzqeoYTXDAJJBNNHM9713-49-50 21:03:00 Test Item Value Reference Range Interpretation Comments Potassium Lvl (test code = Potassium 4.6 3.5-5.1 Lvl) [facility] HospitalLqwobboBMDSVRNENONU8525-41-93 21:03:00 Test Item Value Reference Range Interpretation Comments Chloride Lvl (test code = Chloride Lvl) 105 95-109 [facility] HospitalDlgrstmIVCTFLFEZXUI8763-75-81 21:03:00 Test Item Value Reference Range Interpretation Comments CO2 (test code = CO2) 26 24-32 [facility] HospitalQhyxbniDMBMOYAIDSZE0977-49-79 21:03:00 Test Item Value Reference Range Interpretation Comments Calcium Lvl (test code = Calcium Lvl) 9.5 8.5-10.5 [facility] HospitalVxjbotbHCQWBJZMVGIK8325-32-89 21:03:00 Test Item Value Reference Range Interpretation Comments Total Protein (test code = Total 7.2 6.4-8.4 Protein) [facility] HospitalFhczsonMSSVLMDVCCPL1955-28-69 21:03:00 Test Item Value Reference Range Interpretation Comments Albumin Lvl (test code = Albumin Lvl) 3.4 3.5-5.0 [facility] HospitalIhtymcfFJQNSYQFIYDK6599-39-80 21:03:00 Test Item Value Reference Range Interpretation Comments ALT (test code = ALT) 28 See_Comment [Auto mated message] The system which ge nerated this result transmit todd reference range : <=65. The reference range was not used to interpr et this result as kimberli l/abnormal. [facility] HospitalMvyneviWAKOJLNUZPMB7294-00-56 21:03:00 Test Item Value Reference Range Interpretation Comments AST (test code = AST) 22 See_Comment [Auto mated message] The system which ge nerated this result transmit todd reference range : <=37. The reference range was not used to interpr et this result as kimberli l/abnormal. [facility] HospitalHrgjwgoGORWJOLXEDNL1637-37-27 21:03:00 Test Item Value Reference Range Interpretation Comments Alk Phos (test code = Alk Phos) 82 39-136 [facility] HospitalNqlyfyhQTYFREWFPWTY3126-17-59 21:03:00 Test Item Value Reference Range Interpretation Comments Bili Total (test code = Bili Total) 0.4 0.2-1.3 [facility] HospitalAzdqljpIEWIDIVOCGCY3737-09-35 21:03:00 Test Item Value Reference Range Interpretation Comments eGFR (test code = eGFR) 29 [facility] HospitalMvyjisxPBHTXTZPNO6280-87-63 21:03:00 Test Item Value Reference Range Interpretation Comments WBC (test code = WBC) 11.0 3.7-10.4 [facility] HospitalWqfvbdkDCKSNWNGRM2751-43-07 21:03:00 Test Item Value Reference Range Interpretation Comments RBC (test code = RBC) 4.22 4.70-6.10 [facility] HospitalUsinimhVEBGOMBXYQ9353-50-86 21:03:00 Test Item Value Reference Range Interpretation Comments Hgb (test code = Hgb) 13.4 14.0-18.0 [facility] HospitalQhdggstMPLIALBKFQ3309-42-74 21:03:00 Test Item Value Reference Range Interpretation Comments Hct (test code = Hct) 40.2 42.0-54.0 [facility] HospitalMxhrbvhQRHRDHJOGG2790-06-15 21:03:00 Test Item Value Reference Range Interpretation Comments MCV (test code = MCV) 95.2 80.0-94.0 [facility] HospitalIgyqhwfYUACTEZWMF0012-52-73 21:03:00 Test Item Value Reference Range Interpretation Comments MCH (test code = MCH) 31.7 pg 27.0-31.0 [facility] HospitalSddytdsJTMHYUCMVC7814-59-53 21:03:00 Test Item Value Reference Range Interpretation Comments MCHC (test code = MCHC) 33.3 32.0-36.0 [facility] HospitalBglssyoPOIEEHHYRK2757-36-76 21:03:00 Test Item Value Reference Range Interpretation Comments RDW (test code = RDW) 14.3 11.5-14.5 [facility] HospitalJqxasujTXBCXLPLMG1841-52-91 21:03:00 Test Item Value Reference Range Interpretation Comments Platelet (test code = Platelet) 286 133-450 [facility] HospitalJptssixFZJCKGNDQB4568-24-37 21:03:00 Test Item Value Reference Range Interpretation Comments MPV (test code = MPV) 8.5 7.4-10.4 [facility] HospitalGeeldhjOJEUGCGFFB5296-50-91 21:03:00 Test Item Value Reference Range Interpretation Comments Segs (test code = Segs) 91.9 45.0-75.0 [facility] HospitalGwnliraIKIEPANCTJ5565-76-96 21:03:00 Test Item Value Reference Range Interpretation Comments Lymphocytes (test code = Lymphocytes) 5.0 20.0-40.0 [facility] HospitalHrxndqeNXZCIWOZYL3714-11-40 21:03:00 Test Item Value Reference Range Interpretation Comments Monocytes (test code = Monocytes) 2.4 2.0-12.0 [facility] HospitalZhnsugsYBOIOFLCMW1009-03-05 21:03:00 Test Item Value Reference Range Interpretation Comments Basophils (test code = 0.7 See_Comment [Aut omated message] The Basophils) system which ge nerated this result tra nsmitted reference range : <=1.0. The reference r carolynn was not used to int erpret this result as normal/abnormal . [facility] HospitalIucgtprYTGJMLCIIW0562-49-46 21:03:00 Test Item Value Reference Range Interpretation Comments Neutrophils # (test code = Neutrophils 10.1 1.5-8.1 #) [facility] HospitalNdshjicGCUIMXLYAK5244-26-11 21:03:00 Test Item Value Reference Range Interpretation Comments Lymphocytes # (test code = Lymphocytes 0.5 1.0-5.5 #) [facility] HospitalKbstdkeDZJRFMCBRS7309-26-70 21:03:00 Test Item Value Reference Range Interpretation Comments Monocytes # (test code 0.3 See_Comment [Aut omated message] The = Monocytes #) system which generated this result tra nsmitted reference range : <=0.8. The reference r carolynn was not used to int erpret this result as normal/abnormal . [facility] HospitalHlpjybbMAZLVEWEOL4863-90-23 21:03:00 Test Item Value Reference Range Interpretation Comments Basophils # (test code 0.1 See_Comment [Aut omated message] The = Basophils #) system which generated this result tra nsmitted reference range : <=0.2. The reference r carolynn was not used to int erpret this result as normal/abnormal . [facility] EALIBZT7276-38-13 21:03:00 Test Item Value Reference Range Interpretation Comments Troponin-I (test code no gt See_Comment [Auto mated message] The = Troponin-I) system which g enerated this result transmit todd reference range : <=0.40. The reference r carolynn was not used to interpr et this result as kimberli l/abnormal. [facility] HospitalNanorex QFAPRXT9744-71-98 21:03:00 Test Item Value Reference Range Interpretation Comments BNP (test code = BNP) 75 [facility]CHEM YQAUR9763-98-67 21:03:00 Test Item Value Reference Range Interpretation Comments Lipase Lvl (test code = Lipase Lvl) 130 73-393 [facility]wayVrqotqpUETCBGRAIYUF4813-71-70 21:03:00 Test Item Value Reference Range Interpretation Comments AGAP (test code = AGAP) 12.6 10.0-20.0 [facility] HospitalIzymlxpNLGAZXCYQJZI3325-63-47 21:03:00 Test Item Value Reference Range Interpretation Comments B/C Ratio (test code = B/C Ratio) 16 1 6-25 [facility] LakewayNtqpqdwOSVJXVLCGVEW0786-85-15 21:03:00 Test Item Value Reference Range Interpretation Comments Globulin (test code = Globulin) 3.8 2.7-4.2 [facility]WhnzelnSKKNBWJUQFAO5033-45-92 21:03:00 Test Item Value Reference Range Interpretation Comments A/G Ratio (test code = A/G Ratio) 0.9 1 0.7-1.6 [facility] HospitalThenfwsBPREDJYTEQWT5129-48-97 21:03:00 Test Item Value Reference Range Interpretation Comments Glucose Lvl (test code = Glucose Lvl) 177 70-99 [facility] HospitalWfuoxpoYFNMEOMWDFWI1925-66-50 21:03:00 Test Item Value Reference Range Interpretation Comments BUN (test code = BUN) 35 7-22 [facility] HospitalWdkavwuZIIJGEOIHUPH2616-57-55 21:03:00 Test Item Value Reference Range Interpretation Comments Creatinine Lvl (test code = Creatinine 2.24 0.50-1.40 Lvl) [facility] HospitalKdtgfjuZXFBMNJAHGVI1523-79-47 21:03:00 Test Item Value Reference Range Interpretation Comments Sodium Lvl (test code = Sodium Lvl) 139 135-145 [facility] HospitalSrveecsJOEKCIZIXISQ9751-59-19 21:03:00 Test Item Value Reference Range Interpretation Comments Potassium Lvl (test code = Potassium 4.6 3.5-5.1 Lvl) [facility] HospitalGnpaynkJBVEOPONZBPO3385-16-88 21:03:00 Test Item Value Reference Range Interpretation Comments Chloride Lvl (test code = Chloride Lvl) 105 95-109 [facility] HospitalDonqpdvGOKRAWEUZZUP4856-23-99 21:03:00 Test Item Value Reference Range Interpretation Comments CO2 (test code = CO2) 26 24-32 [facility] HospitalByussnzPGGKLQNZSRTL5376-02-72 21:03:00 Test Item Value Reference Range Interpretation Comments Calcium Lvl (test code = Calcium Lvl) 9.5 8.5-10.5 [facility] HospitalQykhkliPZTSQKXDHKPJ4810-45-25 21:03:00 Test Item Value Reference Range Interpretation Comments Total Protein (test code = Total 7.2 6.4-8.4 Protein) [facility] HospitalVttdcefXXSBZVORXUBQ6476-48-02 21:03:00 Test Item Value Reference Range Interpretation Comments Albumin Lvl (test code = Albumin Lvl) 3.4 3.5-5.0 [facility] HospitalXultdzpDMHWCWSZMVGZ7126-29-99 21:03:00 Test Item Value Reference Range Interpretation Comments ALT (test code = ALT) 28 See_Comment [Auto mated message] The system which ge nerated this result transmit todd reference range : <=65. The reference range was not used to interpr et this result as kimberli l/abnormal. [facility] HospitalMqtyejjTIAAELIDPHWP1355-89-56 21:03:00 Test Item Value Reference Range Interpretation Comments AST (test code = AST) 22 See_Comment [Auto mated message] The system which ge nerated this result transmit todd reference range : <=37. The reference range was not used to interpr et this result as kimberli l/abnormal. [facility] HospitalFbbxwtiDMFVYIARERRF0983-83-23 21:03:00 Test Item Value Reference Range Interpretation Comments Alk Phos (test code = Alk Phos) 82 39-136 [facility] HospitalWclzksbOJRIJVWANQSE7176-05-81 21:03:00 Test Item Value Reference Range Interpretation Comments Bili Total (test code = Bili Total) 0.4 0.2-1.3 [facility] HospitalIsazzsmAVZGQKWMUBUH8541-27-95 21:03:00 Test Item Value Reference Range Interpretation Comments eGFR (test code = eGFR) 29 [facility] HospitalQjooovfEMRCJJKYWP3150-98-63 21:03:00 Test Item Value Reference Range Interpretation Comments WBC (test code = WBC) 11.0 3.7-10.4 [facility] HospitalSzdnfskWMMWZUXXGT7048-71-27 21:03:00 Test Item Value Reference Range Interpretation Comments RBC (test code = RBC) 4.22 4.70-6.10 [facility] HospitalElthmavGILOPIMEUY2358-67-77 21:03:00 Test Item Value Reference Range Interpretation Comments Hgb (test code = Hgb) 13.4 14.0-18.0 [facility] HospitalEcfzwzkTTQKBHTZYV4514-84-61 21:03:00 Test Item Value Reference Range Interpretation Comments Hct (test code = Hct) 40.2 42.0-54.0 [facility] HospitalOlssrjtOCFWWRQWYG9706-21-66 21:03:00 Test Item Value Reference Range Interpretation Comments MCV (test code = MCV) 95.2 80.0-94.0 [facility] HospitalWhwdzrkEBMQEWHQYW3592-51-95 21:03:00 Test Item Value Reference Range Interpretation Comments MCH (test code = MCH) 31.7 pg 27.0-31.0 [facility] HospitalPhqabgvCLPEEVBCRD2237-12-79 21:03:00 Test Item Value Reference Range Interpretation Comments MCHC (test code = MCHC) 33.3 32.0-36.0 [facility] HospitalGeqsmerNNGKYVCGZF2581-84-10 21:03:00 Test Item Value Reference Range Interpretation Comments RDW (test code = RDW) 14.3 11.5-14.5 [facility] HospitalPxmqcoaSVRBRPBIGQ6464-96-38 21:03:00 Test Item Value Reference Range Interpretation Comments Platelet (test code = Platelet) 286 133-450 [facility] HospitalIpyyrfsIEOCOVMAEA1689-93-83 21:03:00 Test Item Value Reference Range Interpretation Comments MPV (test code = MPV) 8.5 7.4-10.4 [facility] HospitalAzoxtyzQDNAMEIDTT5322-23-69 21:03:00 Test Item Value Reference Range Interpretation Comments Segs (test code = Segs) 91.9 45.0-75.0 [facility] HospitalVupaqqrWWNJEYJJEN7734-90-33 21:03:00 Test Item Value Reference Range Interpretation Comments Lymphocytes (test code = Lymphocytes) 5.0 20.0-40.0 [facility] HospitalWvgqesbQSQCSPJYGC8816-94-10 21:03:00 Test Item Value Reference Range Interpretation Comments Monocytes (test code = Monocytes) 2.4 2.0-12.0 [facility] HospitalFumclsrXZQCZYLPKY8449-53-68 21:03:00 Test Item Value Reference Range Interpretation Comments Basophils (test code = 0.7 See_Comment [Aut omated message] The Basophils) system which ge nerated this result tra nsmitted reference range : <=1.0. The reference r carolynn was not used to int erpret this result as normal/abnormal . [facility] HospitalOgfsnkvAABSYZKTCC2781-72-72 21:03:00 Test Item Value Reference Range Interpretation Comments Neutrophils # (test code = Neutrophils 10.1 1.5-8.1 #) [facility] HospitalIerqtscXRIOBRUVCW1405-95-45 21:03:00 Test Item Value Reference Range Interpretation Comments Lymphocytes # (test code = Lymphocytes 0.5 1.0-5.5 #) [facility] HospitalLrxhovzDHNOACHRAR7758-96-73 21:03:00 Test Item Value Reference Range Interpretation Comments Monocytes # (test code 0.3 See_Comment [Aut omated message] The = Monocytes #) system which generated this result tra nsmitted reference range : <=0.8. The reference r carolynn was not used to int erpret this result as normal/abnormal . [place] 334089-11-15 21:03:00 Test Item Value Reference Range Interpretation Comments Basophils # (test code 0.1 See_Comment [Aut omated message] The = Basophils #) system which generated this result tra nsmitted reference range : <=0.2. The reference r carolynn was not used to int erpret this result as normal/abnormal . [employer] [id number] 21:03:00 Test Item Value Reference Range Interpretation Comments Troponin-I (test code no gt See_Comment [Auto mated message] The = Troponin-I) system which g enerated this result transmit todd reference range : <=0.40. The reference r carolynn was not used to interpr et this result as kimberli l/abnormal. [employer]2019-11-15 21:03:00 Test Item Value Reference Range Interpretation Comments Troponin-I (test code no gt See_Comment [Auto mated message] The = Troponin-I) system which g enerated this result transmit todd reference range : <=0.40. The reference r carolynn was not used to interpr et this result as kimberli l/abnormal. [employer]2019-11-15 21:03:00 Test Item Value Reference Range Interpretation Comments BNP (test code = BNP) 75 [facility] [employer] [id number] 21:03:00 Test Item Value Reference Range Interpretation Comments Lipase Lvl (test code = Lipase Lvl) 130 73-393 [facility]llcvigYJOIPCQHTUCC6759-86-90 21:03:00 Test Item Value Reference Range Interpretation Comments AGAP (test code = AGAP) 12.6 10.0-20.0 [facility] PshvyriBPEQTAOXUDDR1361-29-15 21:03:00 Test Item Value Reference Range Interpretation Comments B/C Ratio (test code = B/C Ratio) 16 1 6-25 [facility] [employer]2019-11-15 21:03:00 Test Item Value Reference Range Interpretation Comments BNP (test code = BNP) 75 [employer]IkfjsvvBDBMXGEEVXMU7176-19-52 21:03:00 Test Item Value Reference Range Interpretation Comments Globulin (test code = Globulin) 3.8 2.7-4.2 [facility] LqbtssgWQASXPYUXBAI5684-93-32 21:03:00 Test Item Value Reference Range Interpretation Comments A/G Ratio (test code = A/G Ratio) 0.9 1 0.7-1.6 [facility]CktijezEYRILFYPUUEH2621-38-97 21:03:00 Test Item Value Reference Range Interpretation Comments Glucose Lvl (test code = Glucose Lvl) 177 70-99 [facility] HospitalKiryybaJDNSRSGGQZKJ8665-84-56 21:03:00 Test Item Value Reference Range Interpretation Comments BUN (test code = BUN) 35 7-22 [facility] HospitalSzfathaCRJKIUKUCZFR1066-45-57 21:03:00 Test Item Value Reference Range Interpretation Comments Creatinine Lvl (test code = Creatinine 2.24 0.50-1.40 Lvl) [facility] HospitalPbrodjrBSNLUCERFBJK1734-28-89 21:03:00 Test Item Value Reference Range Interpretation Comments Sodium Lvl (test code = Sodium Lvl) 139 135-145 [facility] HospitalFhaxyryUVIWMHBOOFPH2628-37-69 21:03:00 Test Item Value Reference Range Interpretation Comments Potassium Lvl (test code = Potassium 4.6 3.5-5.1 Lvl) [facility] HospitalThsetkiGKTKKREYLNSA9842-68-35 21:03:00 Test Item Value Reference Range Interpretation Comments Chloride Lvl (test code = Chloride Lvl) 105 95-109 [facility] HospitalXsobplmZBHZRRGGWINP4305-35-37 21:03:00 Test Item Value Reference Range Interpretation Comments CO2 (test code = CO2) 26 24-32 [facility] HospitalKkbhkywVWRSFDXFXKQN7440-86-10 21:03:00 Test Item Value Reference Range Interpretation Comments Calcium Lvl (test code = Calcium Lvl) 9.5 8.5-10.5 [facility] 21:03:00 Test Item Value Reference Range Interpretation Comments Lipase Lvl (test code = Lipase Lvl) 130 73-393 [facility] HospitalZlemsfyHQFMFWPDFAFO8516-46-77 21:03:00 Test Item Value Reference Range Interpretation Comments Total Protein (test code = Total 7.2 6.4-8.4 Protein) [facility] HospitalLkcfhnaSYGKCHRPJBAE2479-88-34 21:03:00 Test Item Value Reference Range Interpretation Comments Albumin Lvl (test code = Albumin Lvl) 3.4 3.5-5.0 [facility] HospitalSjrcavcRHJWGPPUEJOT2540-15-39 21:03:00 Test Item Value Reference Range Interpretation Comments ALT (test code = ALT) 28 See_Comment [Auto mated message] The system which ge nerated this result transmit todd reference range : <=65. The reference range was not used to interpr et this result as kimberli l/abnormal. [facility] HospitalTlnrvrcLZBPUVLOWSKW4043-35-33 21:03:00 Test Item Value Reference Range Interpretation Comments AST (test code = AST) 22 See_Comment [Auto mated message] The system which ge nerated this result transmit todd reference range : <=37. The reference range was not used to interpr et this result as kimberli l/abnormal. [facility] HospitalNvsstepQDGAAQFCDRJM1202-19-04 21:03:00 Test Item Value Reference Range Interpretation Comments Alk Phos (test code = Alk Phos) 82 39-136 [facility] HospitalIeivqnyXKKQSYRDGENX7888-17-66 21:03:00 Test Item Value Reference Range Interpretation Comments Bili Total (test code = Bili Total) 0.4 0.2-1.3 [facility] HospitalJgohgfsCKCOFTUSMPKL3235-56-91 21:03:00 Test Item Value Reference Range Interpretation Comments eGFR (test code = eGFR) 29 [facility] HospitalMgyvtelQWPLYDNSWD4806-23-74 21:03:00 Test Item Value Reference Range Interpretation Comments WBC (test code = WBC) 11.0 3.7-10.4 [facility] HospitalYwvidmtEHXRDQRRGS8421-04-24 21:03:00 Test Item Value Reference Range Interpretation Comments RBC (test code = RBC) 4.22 4.70-6.10 [facility] HospitalUpnjxfsVAOVNETVJK6960-33-96 21:03:00 Test Item Value Reference Range Interpretation Comments Hgb (test code = Hgb) 13.4 14.0-18.0 [facility] HospitalBbhlkrrPCWEZFWBJJCZ4773-95-36 21:03:00 Test Item Value Reference Range Interpretation Comments AGAP (test code = AGAP) 12.6 10.0-20.0 [facility] HospitalEibbcybSRKYDISSNG2942-87-76 21:03:00 Test Item Value Reference Range Interpretation Comments Hct (test code = Hct) 40.2 42.0-54.0 [facility] HospitalLwirdctMGCBHHZUFQ9778-97-90 21:03:00 Test Item Value Reference Range Interpretation Comments MCV (test code = MCV) 95.2 80.0-94.0 [facility] HospitalPxcytjlKJUNUTGTIY7628-50-41 21:03:00 Test Item Value Reference Range Interpretation Comments MCH (test code = MCH) 31.7 pg 27.0-31.0 [facility] HospitalNgkspimPQLZMXPTAA2330-03-37 21:03:00 Test Item Value Reference Range Interpretation Comments MCHC (test code = MCHC) 33.3 32.0-36.0 [facility]TdqtevbDMTQAYWFJW1763-22-53 21:03:00 Test Item Value Reference Range Interpretation Comments RDW (test code = RDW) 14.3 11.5-14.5 [facility] HospitalEzxqxgqVYZWEWPECN8785-65-25 21:03:00 Test Item Value Reference Range Interpretation Comments Platelet (test code = Platelet) 286 133-450 [facility] HospitalZgixyxcCWLGYCXPOG8653-12-21 21:03:00 Test Item Value Reference Range Interpretation Comments MPV (test code = MPV) 8.5 7.4-10.4 [facility] HospitalHqdyvrxHZQWDJZNIH7158-97-38 21:03:00 Test Item Value Reference Range Interpretation Comments Segs (test code = Segs) 91.9 45.0-75.0 [facility] HospitalIrlhksbDIGYRPVBWL8276-82-39 21:03:00 Test Item Value Reference Range Interpretation Comments Lymphocytes (test code = Lymphocytes) 5.0 20.0-40.0 [facility] HospitalVbqlpajOOFVWCCNNY3138-33-71 21:03:00 Test Item Value Reference Range Interpretation Comments Monocytes (test code = Monocytes) 2.4 2.0-12.0 [facility]InaqedcTAWZIZZQRWTW4708-89-15 21:03:00 Test Item Value Reference Range Interpretation Comments B/C Ratio (test code = B/C Ratio) 16 1 6-25 [facility] HospitalIzbhbkqAYFFEQRGMJ4984-88-18 21:03:00 Test Item Value Reference Range Interpretation Comments Basophils (test code = 0.7 See_Comment [Aut omated message] The Basophils) system which ge nerated this result tra nsmitted reference range : <=1.0. The reference r carolynn was not used to int erpret this result as normal/abnormal . [facility] HospitalTnyqynaVDXNSPNGLC5212-29-62 21:03:00 Test Item Value Reference Range Interpretation Comments Neutrophils # (test code = Neutrophils 10.1 1.5-8.1 #) [facility] HospitalMmuptaaZYWYFKPUAB7143-70-48 21:03:00 Test Item Value Reference Range Interpretation Comments Lymphocytes # (test code = Lymphocytes 0.5 1.0-5.5 #) [facility] HospitalIbrqhwrECVKRGJXMZ0982-66-54 21:03:00 Test Item Value Reference Range Interpretation Comments Monocytes # (test code 0.3 See_Comment [Aut omated message] The = Monocytes #) system which generated this result tra nsmitted reference range : <=0.8. The reference r carolynn was not used to int erpret this result as normal/abnormal . [facility] HospitalPrmrvwfLGYQRLYBFH5304-88-63 21:03:00 Test Item Value Reference Range Interpretation Comments Basophils # (test code 0.1 See_Comment [Aut omated message] The = Basophils #) system which generated this result tra nsmitted reference range : <=0.2. The reference r carolynn was not used to int erpret this result as normal/abnormal . [facility]EfxcirmZNMXPPIROQOM3551-25-24 21:03:00 Test Item Value Reference Range Interpretation Comments Globulin (test code = Globulin) 3.8 2.7-4.2 [facility] HospitalJkzbjinQBOKAFTXAIVW4506-51-40 21:03:00 Test Item Value Reference Range Interpretation Comments A/G Ratio (test code = A/G Ratio) 0.9 1 0.7-1.6 [facility] HospitalNempyqoBSTEVEVWQUWE1089-60-02 21:03:00 Test Item Value Reference Range Interpretation Comments Glucose Lvl (test code = Glucose Lvl) 177 70-99 [facility] HospitalApdqxgfHZZQHELLPQAI4844-03-41 21:03:00 Test Item Value Reference Range Interpretation Comments BUN (test code = BUN) 35 7-22 [facility] HospitalRmyznicOHRVMQEFOCUB7877-04-98 21:03:00 Test Item Value Reference Range Interpretation Comments Creatinine Lvl (test code = Creatinine 2.24 0.50-1.40 Lvl) [facility] HospitalDjuqqnhXVZQRLUCQDPI2166-09-86 21:03:00 Test Item Value Reference Range Interpretation Comments Sodium Lvl (test code = Sodium Lvl) 139 135-145 [facility] HospitalHfcuniuXZSMGUVPKQQJ2336-08-56 21:03:00 Test Item Value Reference Range Interpretation Comments Potassium Lvl (test code = Potassium 4.6 3.5-5.1 Lvl) [facility] HospitalOznemkmLUMLTOLIITKJ2529-51-53 21:03:00 Test Item Value Reference Range Interpretation Comments Chloride Lvl (test code = Chloride Lvl) 105 95-109 [facility] HospitalPdvbfjpGNIXQQFWLWOZ0961-58-19 21:03:00 Test Item Value Reference Range Interpretation Comments CO2 (test code = CO2) 26 24-32 [facility] HospitalXlxcsbpWBOAQMNZIJSS2601-75-79 21:03:00 Test Item Value Reference Range Interpretation Comments Calcium Lvl (test code = Calcium Lvl) 9.5 8.5-10.5 [facility] HospitalEffjocoAZNVWRFIOHTY7778-37-49 21:03:00 Test Item Value Reference Range Interpretation Comments Total Protein (test code = Total 7.2 6.4-8.4 Protein) [facility] HospitalBeeeesbQRKSYVETWGLV3078-64-29 21:03:00 Test Item Value Reference Range Interpretation Comments Albumin Lvl (test code = Albumin Lvl) 3.4 3.5-5.0 [facility] HospitalOhcfxwsXUNJKSTPZXPO1329-42-66 21:03:00 Test Item Value Reference Range Interpretation Comments ALT (test code = ALT) 28 See_Comment [Auto mated message] The system which ge nerated this result transmit todd reference range : <=65. The reference range was not used to interpr et this result as kimberli l/abnormal. [facility] HospitalPbixqajIUSEPMIZFEXB9757-65-25 21:03:00 Test Item Value Reference Range Interpretation Comments AST (test code = AST) 22 See_Comment [Auto mated message] The system which ge nerated this result transmit todd reference range : <=37. The reference range was not used to interpr et this result as kimberli l/abnormal. [facility] HospitalFbqpxvrKFXZNYYPHAAK9017-62-04 21:03:00 Test Item Value Reference Range Interpretation Comments Alk Phos (test code = Alk Phos) 82 39-136 [facility] HospitalApydwsxBSZWCEXBRMDU4629-31-54 21:03:00 Test Item Value Reference Range Interpretation Comments Bili Total (test code = Bili Total) 0.4 0.2-1.3 [facility] HospitalYfzmlezZNAUTGNNPTNY0092-80-12 21:03:00 Test Item Value Reference Range Interpretation Comments eGFR (test code = eGFR) 29 [facility] HospitalAradcscEHUYGTFRDB4918-06-06 21:03:00 Test Item Value Reference Range Interpretation Comments WBC (test code = WBC) 11.0 3.7-10.4 [facility] HospitalMgfdsopBKXSBZPOLN4867-13-05 21:03:00 Test Item Value Reference Range Interpretation Comments RBC (test code = RBC) 4.22 4.70-6.10 [facility] HospitalMxuhldlPQBVNYREEV0334-44-81 21:03:00 Test Item Value Reference Range Interpretation Comments Hgb (test code = Hgb) 13.4 14.0-18.0 [facility] HospitalCygmgjwYNNVQIOHJI8248-19-94 21:03:00 Test Item Value Reference Range Interpretation Comments Hct (test code = Hct) 40.2 42.0-54.0 [facility] HospitalKdiwcmfYRLDPXCOVB9058-51-68 21:03:00 Test Item Value Reference Range Interpretation Comments MCV (test code = MCV) 95.2 80.0-94.0 [facility] HospitalLusncdhHTXKNYYUKA8366-82-13 21:03:00 Test Item Value Reference Range Interpretation Comments MCH (test code = MCH) 31.7 pg 27.0-31.0 [facility] HospitalTviqgmdEEJHHTJLUB1978-78-90 21:03:00 Test Item Value Reference Range Interpretation Comments MCHC (test code = MCHC) 33.3 32.0-36.0 [facility] HospitalGskitafFZOXTPGYQX7159-30-74 21:03:00 Test Item Value Reference Range Interpretation Comments RDW (test code = RDW) 14.3 11.5-14.5 [facility] AND [id number] 23:00:00 Test Item Value Reference Range Interpretation Comments Occult Bld Stl (test Negative (09/29/15 6:00 code = Occult Bld Stl) PM) [facility] AND [id number] 23:00:00 Test Item Value Reference Range Interpretation Comments Occult Bld Stl (test Negative (09/29/15 6:00 code = Occult Bld Stl) PM) [facility] AND [id number] 23:00:00 Test Item Value Reference Range Interpretation Comments Occult Bld Stl (test Negative (09/29/15 6:00 code = Occult Bld Stl) PM) [facility] AND PGFDU0056-79-10 23:00:00 Test Item Value Reference Range Interpretation Comments Occult Bld Stl (test Negative (09/29/15 6:00 code = Occult Bld Stl) PM) [facility] AND [id number] 23:00:00 Test Item Value Reference Range Interpretation Comments Occult Bld Stl (test Negative (09/29/15 6:00 code = Occult Bld Stl) PM) [facility]2016-07-27 13:12:00 Test Item Value Reference Range Interpretation Comments Uric Acid (test code = Uric Acid) 7.9 3.8-8.0 [facility] HospitalObyxfmkDBKJFRBGGPYV7743-62-56 13:12:00 Test Item Value Reference Range Interpretation Comments AGAP (test code = AGAP) 11.5 10.0-20.0 [facility] HospitalVasivcoZZDUTGYBUUTG4573-08-44 13:12:00 Test Item Value Reference Range Interpretation Comments B/C Ratio (test code = B/C Ratio) 20 6-25 [facility] HospitalDonngthLEDNJPGFYBBW3988-77-64 13:12:00 Test Item Value Reference Range Interpretation Comments Globulin (test code = Globulin) 3.2 2.0-4.0 [facility] HospitalXimlmqcQCYQYDJTCABY1414-43-88 13:12:00 Test Item Value Reference Range Interpretation Comments A/G Ratio (test code = A/G Ratio) 1.4 0.7-1.6 [facility] HospitalPnbsglnFVOAWWXSAOIH6018-72-74 13:12:00 Test Item Value Reference Range Interpretation Comments eGFR (test code = eGFR) 49 [facility] HospitalUjycntsOFHDZTPXYEER8545-44-01 13:12:00 Test Item Value Reference Range Interpretation Comments Bili Total (test code = Bili Total) 0.5 0.2-1.3 [facility] HospitalJpkifrqJZOIBPZKNIXU5313-74-95 13:12:00 Test Item Value Reference Range Interpretation Comments Sodium Lvl (test code = Sodium Lvl) 140 135-145 [facility] HospitalCuaaepeMMTZXRRUGCSH6572-78-71 13:12:00 Test Item Value Reference Range Interpretation Comments Creatinine Lvl (test code = Creatinine 1.48 0.50-1.40 Lvl) [facility] HospitalUbsubdcVODDYRYTYPET7716-40-67 13:12:00 Test Item Value Reference Range Interpretation Comments BUN (test code = BUN) 29 7-22 [facility] HospitalEuivjmiWWUYCFZXUDTZ4944-95-27 13:12:00 Test Item Value Reference Range Interpretation Comments Glucose Lvl (test code = Glucose Lvl) 123 70-99 [facility] HospitalJkroegkXAHPYZIRKDVC8353-19-26 13:12:00 Test Item Value Reference Range Interpretation Comments ALT (test code = ALT) 20 See_Comment [Auto mated message] The system which ge nerated this result transmit todd reference range : <=65. The reference range was not used to interpr et this result as kimberli l/abnormal. [facility] HospitalRkgiqtxBTCJFGQUBNKD3072-25-35 13:12:00 Test Item Value Reference Range Interpretation Comments AST (test code = AST) 9 See_Comment [Auto mated message] The system which ge nerated this result transmit todd reference range : <=37. The reference range was not used to interpr et this result as kimberli l/abnormal. [facility] HospitalPbjdegdVSCESTVPKYZQ7735-60-08 13:12:00 Test Item Value Reference Range Interpretation Comments Alk Phos (test code = Alk Phos) 76 39-136 [facility] HospitalBalvdbcTXIZGUJJPSEA9086-86-37 13:12:00 Test Item Value Reference Range Interpretation Comments Calcium Lvl (test code = Calcium Lvl) 9.2 8.5-10.5 [facility] HospitalPxszpwwVHWZHJNLLSFF5673-49-29 13:12:00 Test Item Value Reference Range Interpretation Comments Albumin Lvl (test code = Albumin Lvl) 4.4 3.5-5.0 [facility] HospitalRhomkkbXESQBOKTLKVJ0966-85-53 13:12:00 Test Item Value Reference Range Interpretation Comments Potassium Lvl (test code = Potassium 4.5 3.5-5.1 Lvl) [facility] HospitalSrsfoteYSICYGSOIMFV8655-20-42 13:12:00 Test Item Value Reference Range Interpretation Comments Total Protein (test code = Total 7.6 6.4-8.4 Protein) [facility] HospitalMybcmpaHRTAJEBJYVYR4370-06-00 13:12:00 Test Item Value Reference Range Interpretation Comments CO2 (test code = CO2) 28 24-32 [facility] HospitalLefdbgrDYYBRQPTNIPZ3278-95-91 13:12:00 Test Item Value Reference Range Interpretation Comments Chloride Lvl (test code = Chloride Lvl) 105 95-109 [facility] HospitalUnferulXEPYYSGSIX1620-05-74 13:12:00 Test Item Value Reference Range Interpretation Comments Segs (test code = Segs) 60.0 45.0-75.0 [facility] HospitalDvmlbhmSWKWDCTABF7605-50-99 13:12:00 Test Item Value Reference Range Interpretation Comments Eosinophils (test code = 3.3 See_Comment [A utomated message] The Eosinophils) system which ge nerated this result tra nsmitted reference range : <=4.0. The reference r carolynn was not used to int erpret this result as normal/abnormal . [facility] HospitalLievkyaJBARTCTCUK2001-44-28 13:12:00 Test Item Value Reference Range Interpretation Comments Monocytes (test code = Monocytes) 8.1 2.0-12.0 [facility] HospitalZcmdzctARUKWVKEZB9896-40-42 13:12:00 Test Item Value Reference Range Interpretation Comments Lymphocytes (test code = Lymphocytes) 27.4 20.0-40.0 [facility] HospitalWqnkolnROPJNUCVHE5504-49-55 13:12:00 Test Item Value Reference Range Interpretation Comments Monocytes # (test code 0.5 See_Comment [Aut omated message] The = Monocytes #) system which generated this result tra nsmitted reference range : <=0.8. The reference r carolynn was not used to int erpret this result as normal/abnormal . [facility] HospitalPwzjeecJFDXZMTIKJ6146-35-68 13:12:00 Test Item Value Reference Range Interpretation Comments Basophils (test code = 1.2 See_Comment [Aut omated message] The Basophils) system which ge nerated this result tra nsmitted reference range : <=1.0. The reference r carolynn was not used to int erpret this result as normal/abnormal . [facility] HospitalQqbwkefVIEVHAVZZJ5855-59-89 13:12:00 Test Item Value Reference Range Interpretation Comments Lymphocytes # (test code = Lymphocytes 1.7 1.0-5.5 #) [facility] HospitalHjyfywbOWMSZYHGXY9036-19-78 13:12:00 Test Item Value Reference Range Interpretation Comments Segs-Bands # (test code = Segs-Bands #) 3.6 1.5-8.1 [facility] HospitalJwvleeeUWNUZZZOQF8031-95-40 13:12:00 Test Item Value Reference Range Interpretation Comments Eosinophils # (test code 0.2 See_Comment [A utomated message] The = Eosinophils #) system ic h generated this result tra nsmitted reference range : <=0.5. The reference r carolynn was not used to int erpret this result as normal/abnormal . [facility] HospitalQksqdbwOJPHFDAOHQ0254-82-34 13:12:00 Test Item Value Reference Range Interpretation Comments Basophils # (test code 0.1 See_Comment [Aut omated message] The = Basophils #) system which generated this result tra nsmitted reference range : <=0.2. The reference r carolynn was not used to int erpret this result as normal/abnormal . [facility] HospitalFeygjkiBTIZYKZIZY4744-35-81 13:12:00 Test Item Value Reference Range Interpretation Comments Hgb (test code = Hgb) 13.9 14.0-18.0 [facility] HospitalFdkjbgiSBWTPGQMFO8775-14-96 13:12:00 Test Item Value Reference Range Interpretation Comments RBC (test code = RBC) 4.57 4.70-6.10 [facility] HospitalXeusozhSATHPJZQXL1404-50-86 13:12:00 Test Item Value Reference Range Interpretation Comments WBC (test code = WBC) 6.1 3.7-10.4 [facility] HospitalHgbnhjlBKDWIVWYYD7466-84-19 13:12:00 Test Item Value Reference Range Interpretation Comments Hct (test code = Hct) 40.6 42.0-54.0 [facility] HospitalNagjspvWJDRXVKNYN7543-04-97 13:12:00 Test Item Value Reference Range Interpretation Comments MCH (test code = MCH) 30.4 pg 27.0-31.0 [facility] HospitalExakilgMMIUMRXSVV5876-08-05 13:12:00 Test Item Value Reference Range Interpretation Comments MCV (test code = MCV) 88.9 80.0-94.0 [facility] HospitalBdhjdmaZXKGBBMKNL6676-95-12 13:12:00 Test Item Value Reference Range Interpretation Comments MCHC (test code = MCHC) 34.2 32.0-36.0 [facility] HospitalCkvdwzeQFPUYOXIXC5590-07-52 13:12:00 Test Item Value Reference Range Interpretation Comments Platelet (test code = Platelet) 196 133-450 [facility] HospitalFkqoataKBQWJBPNWW1042-20-08 13:12:00 Test Item Value Reference Range Interpretation Comments RDW (test code = RDW) 13.7 11.5-14.5 [facility] HospitalDpgdmqgCMDZSJBSNR2126-15-05 13:12:00 Test Item Value Reference Range Interpretation Comments MPV (test code = MPV) 8.5 7.4-10.4 [facility]BwwnkvoCOJBKA5602-41-67 13:12:00 Test Item Value Reference Range Interpretation Comments HDL (test code = HDL) 75 [facility] StationGutnjhuFRCTMR9716-39-93 13:12:00 Test Item Value Reference Range Interpretation Comments Chol (test code = Chol) 143 [facility] StationLewtsptKFDFRB1628-64-93 13:12:00 Test Item Value Reference Range Interpretation Comments VLDL (test code = VLDL) 19 [facility]WkjiygxLQEXNK1344-26-42 13:12:00 Test Item Value Reference Range Interpretation Comments Trig (test code = Trig) 94 [facility] CenterGwvzorwWQJKKR2835-78-52 13:12:00 Test Item Value Reference Range Interpretation Comments LDL (Calculated) (test code = LDL 49 (Calculated)) [facility] CenterNghscfyBSFVRX7952-41-79 13:12:00 Test Item Value Reference Range Interpretation Comments CHD Risk (test code = CHD Risk) 1.91 4.00-7.30 [facility] GRXMRPUBG5022-46-21 13:12:00 Test Item Value Reference Range Interpretation Comments Hgb A1C (test code = Hgb A1C) 6.9 [facility] AND [id number] 13:12:00 Test Item Value Reference Range Interpretation Comments UA Color (test code = UA Color) Ltyellow [facility] AND [id number] 13:12:00 Test Item Value Reference Range Interpretation Comments UA Urobilinogen (test code = UA <=1.0 mg/dL 0.1-1.0 Urobilinogen) [facility] AND [id number] 13:12:00 Test Item Value Reference Range Interpretation Comments UA Ketones (test code = UA Negative mg/dL Ketones) [facility] AND [id number] 13:12:00 Test Item Value Reference Range Interpretation Comments UA Glucose (test code = UA Negative mg/dL Glucose) [facility] AND [id number] 13:12:00 Test Item Value Reference Range Interpretation Comments UA Protein (test code = UA Protein) 100 mg/dL [facility] AND [id number] 13:12:00 Test Item Value Reference Range Interpretation Comments UA Leuk Est (test Negative (09/28/15 8:12 code = UA Leuk Est) AM) [facility] AND [id number] 13:12:00 Test Item Value Reference Range Interpretation Comments UA Nitrite (test code Negative (09/28/15 8:12 = UA Nitrite) AM) [facility] AND [id number] 13:12:00 Test Item Value Reference Range Interpretation Comments UA Bili (test code = Negative *NA*(09/28/15 UA Bili) 8:12 AM) [facility] [id number] 13:12:00 Test Item Value Reference Range Interpretation Comments UA Sq Epi (test code = UA Sq Epi) None [facility]en [facility] [id number] 13:12:00 Test Item Value Reference Range Interpretation Comments UA Blood (test code = Negative (09/28/15 8:12 [facility]A Blood) AM) [facility] [id number] 13:12:00 Test Item Value Reference Range Interpretation Comments UA pH (test code = UA pH) 6.0 5.0-8.0 [facility] [id number] 13:12:00 Test Item Value Reference Range Interpretation Comments UA Spec Grav (test code = UA Spec Grav) 1.010 [facility] [id number] 13:12:00 Test Item Value Reference Range Interpretation Comments UA Turbidity (test code = Clear (09/28/15 8:12 UA Turbidity) AM) [facility] [id number] 13:12:00 Test Item Value Reference Range Interpretation Comments U Alb/Crea (test code = U Alb/Crea) 712.8 [facility] [id number] 13:12:00 Test Item Value Reference Range Interpretation Comments U Microalb (test code = U Microalb) 345.0 [facility] [id number] 13:12:00 Test Item Value Reference Range Interpretation Comments U Creatinine (test code = U Creatinine) 48.40 [facility] [id number] 13:12:00 Test Item Value Reference Range Interpretation Comments Uric Acid (test code = Uric Acid) 7.9 3.8-8.0 [facility] ClgwsumDMHZMYJHMDXQ9179-73-17 13:12:00 Test Item Value Reference Range Interpretation Comments AGAP (test code = AGAP) 11.5 10.0-20.0 [facility] EpsfvclHZXOQANSVRTV8072-55-75 13:12:00 Test Item Value Reference Range Interpretation Comments B/C Ratio (test code = B/C Ratio) 20 6-25 [facility] FmuetrpSEAKBHGNVSUJ8040-88-77 13:12:00 Test Item Value Reference Range Interpretation Comments Globulin (test code = Globulin) 3.2 2.0-4.0 [facility] NkbfrdoFOMQBHBCKPXE5312-80-16 13:12:00 Test Item Value Reference Range Interpretation Comments A/G Ratio (test code = A/G Ratio) 1.4 0.7-1.6 [facility]dglvmsBKYBSBXWQLLO3379-61-27 13:12:00 Test Item Value Reference Range Interpretation Comments eGFR (test code = eGFR) 49 [facility] HospitalYuzteyuLDROTXEMHLOT8420-17-19 13:12:00 Test Item Value Reference Range Interpretation Comments Bili Total (test code = Bili Total) 0.5 0.2-1.3 [facility] HospitalMkgsvjtAHZYLQOTUIOK9409-16-98 13:12:00 Test Item Value Reference Range Interpretation Comments Sodium Lvl (test code = Sodium Lvl) 140 135-145 [facility] HospitalVwkvtabCSILOWLRBPXQ5641-22-53 13:12:00 Test Item Value Reference Range Interpretation Comments Creatinine Lvl (test code = Creatinine 1.48 0.50-1.40 Lvl) [facility] HospitalRjqdpcwWLZPERTDTIYJ2701-05-61 13:12:00 Test Item Value Reference Range Interpretation Comments BUN (test code = BUN) 29 7-22 [facility] HospitalEgkjircAKBEBLCYNADJ1390-92-11 13:12:00 Test Item Value Reference Range Interpretation Comments Glucose Lvl (test code = Glucose Lvl) 123 70-99 [facility] HospitalHbvawycIUTHIDKKZHMM8943-85-58 13:12:00 Test Item Value Reference Range Interpretation Comments ALT (test code = ALT) 20 See_Comment [Auto mated message] The system which ge nerated this result transmit todd reference range : <=65. The reference range was not used to interpr et this result as kimberli l/abnormal. [facility] HospitalYsepkwnZXETFJGMVBUC9628-44-74 13:12:00 Test Item Value Reference Range Interpretation Comments AST (test code = AST) 9 See_Comment [Auto mated message] The system which ge nerated this result transmit todd reference range : <=37. The reference range was not used to interpr et this result as kimberli l/abnormal. [facility] HospitalEginmfbAATIGWWASAIE3175-95-21 13:12:00 Test Item Value Reference Range Interpretation Comments Alk Phos (test code = Alk Phos) 76 39-136 [facility] HospitalLrxcaxhJYJLXQMMEKRK6041-01-82 13:12:00 Test Item Value Reference Range Interpretation Comments Calcium Lvl (test code = Calcium Lvl) 9.2 8.5-10.5 [facility] HospitalErojozfOIMUDAZDGHSY7188-27-63 13:12:00 Test Item Value Reference Range Interpretation Comments Albumin Lvl (test code = Albumin Lvl) 4.4 3.5-5.0 [facility] HospitalRsbgkrbGZDZEFTDHFPL5034-84-11 13:12:00 Test Item Value Reference Range Interpretation Comments Potassium Lvl (test code = Potassium 4.5 3.5-5.1 Lvl) [facility] HospitalLiphztsDUTYUIKDEXPV5124-96-82 13:12:00 Test Item Value Reference Range Interpretation Comments Total Protein (test code = Total 7.6 6.4-8.4 Protein) [facility] HospitalCajzyjqDRGDFMDUMFFS6963-54-28 13:12:00 Test Item Value Reference Range Interpretation Comments CO2 (test code = CO2) 28 24-32 [facility] HospitalDsvhiwlUSAJJVLOPXPJ4219-99-00 13:12:00 Test Item Value Reference Range Interpretation Comments Chloride Lvl (test code = Chloride Lvl) 105 95-109 [facility] HospitalEzgzxzySFRWKAUWVB5153-69-06 13:12:00 Test Item Value Reference Range Interpretation Comments Segs (test code = Segs) 60.0 45.0-75.0 [facility] HospitalImaslqhOMOTLGJWTB8869-88-59 13:12:00 Test Item Value Reference Range Interpretation Comments Eosinophils (test code = 3.3 See_Comment [A utomated message] The Eosinophils) system which ge nerated this result tra nsmitted reference range : <=4.0. The reference r carolynn was not used to int erpret this result as normal/abnormal . [facility] HospitalFopuwqbSWTIXPGCPT8157-12-31 13:12:00 Test Item Value Reference Range Interpretation Comments Monocytes (test code = Monocytes) 8.1 2.0-12.0 [facility] HospitalGrjoxusINVXEQBLWV1858-76-82 13:12:00 Test Item Value Reference Range Interpretation Comments Lymphocytes (test code = Lymphocytes) 27.4 20.0-40.0 [facility] HospitalMmmmiylMTFQWKUTLH4816-91-65 13:12:00 Test Item Value Reference Range Interpretation Comments Monocytes # (test code 0.5 See_Comment [Aut omated message] The = Monocytes #) system which generated this result tra nsmitted reference range : <=0.8. The reference r carolynn was not used to int erpret this result as normal/abnormal . [facility] HospitalIfvldzlHVZWDEVFKP0564-94-24 13:12:00 Test Item Value Reference Range Interpretation Comments Basophils (test code = 1.2 See_Comment [Aut omated message] The Basophils) system which ge nerated this result tra nsmitted reference range : <=1.0. The reference r carolynn was not used to int erpret this result as normal/abnormal . [facility] HospitalDfighunNULARWTMFF6035-58-36 13:12:00 Test Item Value Reference Range Interpretation Comments Lymphocytes # (test code = Lymphocytes 1.7 1.0-5.5 #) [facility] HospitalXhiceywDAVORBTYBT7142-49-93 13:12:00 Test Item Value Reference Range Interpretation Comments Segs-Bands # (test code = Segs-Bands #) 3.6 1.5-8.1 [facility] HospitalHtxegczJDJBGYYCUS1877-47-16 13:12:00 Test Item Value Reference Range Interpretation Comments Eosinophils # (test code 0.2 See_Comment [A utomated message] The = Eosinophils #) system [facility] h generated this result tra nsmitted reference range : <=0.5. The reference r carolynn was not used to int erpret this result as normal/abnormal . [facility] HospitalAqbnbunTSRZYRVWPM0511-92-21 13:12:00 Test Item Value Reference Range Interpretation Comments Basophils # (test code 0.1 See_Comment [Aut omated message] The = Basophils #) system which generated this result tra nsmitted reference range : <=0.2. The reference r carolynn was not used to int erpret this result as normal/abnormal . [facility] HospitalOulmkacIHUAJXGGXA2839-92-65 13:12:00 Test Item Value Reference Range Interpretation Comments Hgb (test code = Hgb) 13.9 14.0-18.0 [facility] HospitalRfmdjnkCRNVGXCIBM7677-71-00 13:12:00 Test Item Value Reference Range Interpretation Comments RBC (test code = RBC) 4.57 4.70-6.10 [facility] HospitalCncmxsePDHAYDUWGW5115-71-92 13:12:00 Test Item Value Reference Range Interpretation Comments WBC (test code = WBC) 6.1 3.7-10.4 [facility] HospitalIjdexzmUCOOMCZCFK3801-80-95 13:12:00 Test Item Value Reference Range Interpretation Comments Hct (test code = Hct) 40.6 42.0-54.0 [facility]NbdqzymWJBWUNBRJG8440-48-60 13:12:00 Test Item Value Reference Range Interpretation Comments MCH (test code = MCH) 30.4 pg 27.0-31.0 [facility] HospitalXsxewfjMLBAHBXCNX1123-53-08 13:12:00 Test Item Value Reference Range Interpretation Comments MCV (test code = MCV) 88.9 80.0-94.0 [facility] HospitalJkocmrxHKEWLCRDYT5693-33-75 13:12:00 Test Item Value Reference Range Interpretation Comments MCHC (test code = MCHC) 34.2 32.0-36.0 [facility] HospitalMvieqoyJXMYBRUNNU9557-54-36 13:12:00 Test Item Value Reference Range Interpretation Comments Platelet (test code = Platelet) 196 133-450 [facility] HospitalGvigjynGNZPSSBRWZ4276-58-12 13:12:00 Test Item Value Reference Range Interpretation Comments RDW (test code = RDW) 13.7 11.5-14.5 [facility] HospitalJkowuvbKKRLEWUCKG7758-33-92 13:12:00 Test Item Value Reference Range Interpretation Comments MPV (test code = MPV) 8.5 7.4-10.4 [facility]PtangdhNLAGTC3505[facility] 13:12:00 Test Item Value Reference Range Interpretation Comments HDL (test code = HDL) 75 [facility] CenterDdmrmrzWMLGWY4998-96-73 13:12:00 Test Item Value Reference Range Interpretation Comments Chol (test code = Chol) 143 [facility] CenterSjecvqaJGCGVF7020-94-99 13:12:00 Test Item Value Reference Range Interpretation Comments VLDL (test code = VLDL) 19 [facility] CenterMomzcddHLROQB5422-12-50 13:12:00 Test Item Value Reference Range Interpretation Comments Trig (test code = Trig) 94 [facility] CenterPjjwtltLBMENX6770-01-21 13:12:00 Test Item Value Reference Range Interpretation Comments LDL (Calculated) (test code = LDL 49 (Calculated)) [facility] CenterSxvqxibQWRSVX9718-09-32 13:12:00 Test Item Value Reference Range Interpretation Comments CHD Risk (test code = CHD Risk) 1.91 4.00-7.30 [facility] ZUVEJYCTW3684-68-57 13:12:00 Test Item Value Reference Range Interpretation Comments Hgb A1C (test code = Hgb A1C) 6.9 [facility] AND [id number] 13:12:00 Test Item Value Reference Range Interpretation Comments UA Color (test code = UA Color) Ltyellow [facility] AND [id number] 13:12:00 Test Item Value Reference Range Interpretation Comments UA Urobilinogen (test code = UA <=1.0 mg/dL 0.1-1.0 Urobilinogen) [facility] AND [id number] 13:12:00 Test Item Value Reference Range Interpretation Comments UA Ketones (test code = UA Negative mg/dL Ketones) [facility] AND [id number] 13:12:00 Test Item Value Reference Range Interpretation Comments UA Glucose (test code = UA Negative mg/dL Glucose) [facility] AND [id number] 13:12:00 Test Item Value Reference Range Interpretation Comments UA Protein (test code = UA Protein) 100 mg/dL [facility] AND [id number] 13:12:00 Test Item Value Reference Range Interpretation Comments UA Leuk Est (test Negative (09/28/15 8:12 code = UA Leuk Est) AM) [facility] AND [id number] 13:12:00 Test Item Value Reference Range Interpretation Comments UA Nitrite (test code Negative (09/28/15 8:12 = UA Nitrite) AM) [facility] AND [id number] 13:12:00 Test Item Value Reference Range Interpretation Comments UA Bili (test code = Negative *NA*(09/28/15 UA Bili) 8:12 AM) [facility] AND [id number] 13:12:00 Test Item Value Reference Range Interpretation Comments UA Sq Epi (test code = UA Sq Epi) None Seen [facility] AND [id number] 13:12:00 Test Item Value Reference Range Interpretation Comments UA Blood (test code = Negative (09/28/15 8:12 UA Blood) AM) [facility] AND [id number] 13:12:00 Test Item Value Reference Range Interpretation Comments UA pH (test code = UA pH) 6.0 5.0-8.0 [facility] AND [id number] 13:12:00 Test Item Value Reference Range Interpretation Comments UA Spec Grav (test code = UA Spec Grav) 1.010 [facility] AND [id number] 13:12:00 Test Item Value Reference Range Interpretation Comments UA Turbidity (test code = Clear (09/28/15 8:12 UA Turbidity) AM) [facility] [id number] 13:12:00 Test Item Value Reference Range Interpretation Comments U Alb/Crea (test code = U Alb/Crea) 712.8 [facility] [id number] 13:12:00 Test Item Value Reference Range Interpretation Comments U Microalb (test code = U Microalb) 345.0 [facility] [id number] 13:12:00 Test Item Value Reference Range Interpretation Comments U Creatinine (test code = U Creatinine) 48.40 [facility] [id number] 13:12:00 Test Item Value Reference Range Interpretation Comments Uric Acid (test code = Uric Acid) 7.9 3.8-8.0 [facility]JrcvygwBKJUJJFVUAAI9716-01-08 13:12:00 Test Item Value Reference Range Interpretation Comments AGAP (test code = AGAP) 11.5 10.0-20.0 [facility] HospitalQsqruuaOLSXYWKZVAIF1216-31-59 13:12:00 Test Item Value Reference Range Interpretation Comments B/C Ratio (test code = B/C Ratio) 20 6-25 [facility] HospitalRybibyeVERXFWADLBIW6019-15-79 13:12:00 Test Item Value Reference Range Interpretation Comments Globulin (test code = Globulin) 3.2 2.0-4.0 [facility] HospitalCqfasqbYHLOJSZDPLRI4667-84-24 13:12:00 Test Item Value Reference Range Interpretation Comments A/G Ratio (test code = A/G Ratio) 1.4 0.7-1.6 [facility] HospitalEhgvjvbVZTFVBZGEXZY0192-34-31 13:12:00 Test Item Value Reference Range Interpretation Comments eGFR (test code = eGFR) 49 [facility] HospitalStqfafhEWUAWQQERNMQ8068-37-13 13:12:00 Test Item Value Reference Range Interpretation Comments Bili Total (test code = Bili Total) 0.5 0.2-1.3 [facility] HospitalGbzmbktYSYMXOLCMRAC7249-59-24 13:12:00 Test Item Value Reference Range Interpretation Comments Sodium Lvl (test code = Sodium Lvl) 140 135-145 [facility] HospitalGlhwfnuPZMAQPGQZZCG9720-01-54 13:12:00 Test Item Value Reference Range Interpretation Comments Creatinine Lvl (test code = Creatinine 1.48 0.50-1.40 Lvl) [facility] HospitalSeniurvIODSVOXRKLBN1918-58-89 13:12:00 Test Item Value Reference Range Interpretation Comments BUN (test code = BUN) 29 7-22 [facility] HospitalSqexkreEZLYJJTDZYEY3635-63-03 13:12:00 Test Item Value Reference Range Interpretation Comments Glucose Lvl (test code = Glucose Lvl) 123 70-99 [facility] HospitalCaoosoxWEOIPVYEYMYU8160-97-06 13:12:00 Test Item Value Reference Range Interpretation Comments ALT (test code = ALT) 20 See_Comment [Auto mated message] The system which ge nerated this result transmit todd reference range : <=65. The reference range was not used to interpr et this result as kimberli l/abnormal. [facility] HospitalVtlmuoqHJNMZFDPOKZH2263-55-76 13:12:00 Test Item Value Reference Range Interpretation Comments AST (test code = AST) 9 See_Comment [Auto mated message] The system which ge nerated this result transmit todd reference range : <=37. The reference range was not used to interpr et this result as kimberli l/abnormal. [facility] HospitalQqqnreuFMYWIXGKEUSA4941-16-48 13:12:00 Test Item Value Reference Range Interpretation Comments Alk Phos (test code = Alk Phos) 76 39-136 [facility] HospitalZgakotvABWHGYVQIIMV3853-92-74 13:12:00 Test Item Value Reference Range Interpretation Comments Calcium Lvl (test code = Calcium Lvl) 9.2 8.5-10.5 [facility] HospitalOmospfbJECRCUIVYBMP3972-82-70 13:12:00 Test Item Value Reference Range Interpretation Comments Albumin Lvl (test code = Albumin Lvl) 4.4 3.5-5.0 [facility] HospitalBthwitdAXEZAJQKOJTM2398-38-78 13:12:00 Test Item Value Reference Range Interpretation Comments Potassium Lvl (test code = Potassium 4.5 3.5-5.1 Lvl) [facility] HospitalUvqihlsHQYEEULVIXPV6608-42-73 13:12:00 Test Item Value Reference Range Interpretation Comments Total Protein (test code = Total 7.6 6.4-8.4 Protein) [facility] HospitalSwggwqqUFCLBRWUJFDI2380-34-54 13:12:00 Test Item Value Reference Range Interpretation Comments CO2 (test code = CO2) 28 24-32 [facility] HospitalMmgmubhZFYUZRSNHKSE8275-97-05 13:12:00 Test Item Value Reference Range Interpretation Comments Chloride Lvl (test code = Chloride Lvl) 105 95-109 [facility] HospitalDblifogQKBVGYVAQX1646-60-59 13:12:00 Test Item Value Reference Range Interpretation Comments Segs (test code = Segs) 60.0 45.0-75.0 [facility] HospitalPzxspirAVPFMMXHWO7352-90-87 13:12:00 Test Item Value Reference Range Interpretation Comments Eosinophils (test code = 3.3 See_Comment [A utomated message] The Eosinophils) system which ge nerated this result tra nsmitted reference range : <=4.0. The reference r carolynn was not used to int erpret this result as normal/abnormal . [facility] HospitalIyegljmSQMJHJBHTL4596-74-91 13:12:00 Test Item Value Reference Range Interpretation Comments Monocytes (test code = Monocytes) 8.1 2.0-12.0 [facility] HospitalHybdkwaKSAGISJMZD1853-69-08 13:12:00 Test Item Value Reference Range Interpretation Comments Lymphocytes (test code = Lymphocytes) 27.4 20.0-40.0 [facility] HospitalWbfjrrbRDNHCDKREO6063-41-19 13:12:00 Test Item Value Reference Range Interpretation Comments Monocytes # (test code 0.5 See_Comment [Aut omated message] The = Monocytes #) system which generated this result tra nsmitted reference range : <=0.8. The reference r carolynn was not used to int erpret this result as normal/abnormal . [facility] HospitalWvnkbesMYTNTHNNWY0151-68-15 13:12:00 Test Item Value Reference Range Interpretation Comments Basophils (test code = 1.2 See_Comment [Aut omated message] The Basophils) system which ge nerated this result tra nsmitted reference range : <=1.0. The reference r carolynn was not used to int erpret this result as normal/abnormal . [facility] HospitalXfdopdhCXWPGVDXBL1537-38-64 13:12:00 Test Item Value Reference Range Interpretation Comments Lymphocytes # (test code = Lymphocytes 1.7 1.0-5.5 #) [facility] HospitalKwoaikuDAUBWPOYWX3883-55-47 13:12:00 Test Item Value Reference Range Interpretation Comments Segs-Bands # (test code = Segs-Bands #) 3.6 1.5-8.1 [facility] HospitalUmbdcybGDSIBJIZJV1360-67-62 13:12:00 Test Item Value Reference Range Interpretation Comments Eosinophils # (test code 0.2 See_Comment [A utomated message] The = Eosinophils #) system whic h generated this result tra nsmitted reference range : <=0.5. The reference r carolynn was not used to int erpret this result as normal/abnormal . [facility] HospitalQwdsiyjUTFIGDPLKN4069-05-80 13:12:00 Test Item Value Reference Range Interpretation Comments Basophils # (test code 0.1 See_Comment [Aut omated message] The = Basophils #) system which generated this result tra nsmitted reference range : <=0.2. The reference r carolynn was not used to int erpret this result as normal/abnormal . [facility] HospitalMccyqllOIPVBLNJXO9146-62-94 13:12:00 Test Item Value Reference Range Interpretation Comments Hgb (test code = Hgb) 13.9 14.0-18.0 [facility] HospitalHhvtsabPMNDZTPMPK6071-05-06 13:12:00 Test Item Value Reference Range Interpretation Comments RBC (test code = RBC) 4.57 4.70-6.10 [facility] HospitalBphnydaHRUHWNAHTW0785-22-37 13:12:00 Test Item Value Reference Range Interpretation Comments WBC (test code = WBC) 6.1 3.7-10.4 [facility] HospitalPbyoovsLVJBRZCZTI0539-48-92 13:12:00 Test Item Value Reference Range Interpretation Comments Hct (test code = Hct) 40.6 42.0-54.0 [facility] HospitalUptnomhTKPSZBUNFA2508-61-10 13:12:00 Test Item Value Reference Range Interpretation Comments MCH (test code = MCH) 30.4 pg 27.0-31.0 [facility] HospitalHkfbyonNNPUQXCYXT5894-29-93 13:12:00 Test Item Value Reference Range Interpretation Comments MCV (test code = MCV) 88.9 80.0-94.0 [facility] HospitalQdbvvfeSKRRVBCQKO6237-09-83 13:12:00 Test Item Value Reference Range Interpretation Comments MCHC (test code = MCHC) 34.2 32.0-36.0 [facility] HospitalCeqmlfcJOPIBPLQGF5670-55-31 13:12:00 Test Item Value Reference Range Interpretation Comments Platelet (test code = Platelet) 196 133-450 [facility] HospitalBtosxhiLSYCOUECGJ8494-08-47 13:12:00 Test Item Value Reference Range Interpretation Comments RDW (test code = RDW) 13.7 11.5-14.5 [facility]UmiasdbMOGYKTKHMM9669-25-13 13:12:00 Test Item Value Reference Range Interpretation Comments MPV (test code = MPV) 8.5 7.4-10.4 [facility] CenterWommriuJJQIGO7612-02-22 13:12:00 Test Item Value Reference Range Interpretation Comments HDL (test code = HDL) 75 [facility] HospitalWjyqbwyQHUIKZ3810-46-03 13:12:00 Test Item Value Reference Range Interpretation Comments Chol (test code = Chol) 143 [facility] CenterYghqbmoVMYLTI9267-32-04 13:12:00 Test Item Value Reference Range Interpretation Comments VLDL (test code = VLDL) 19 [facility] CenterBggbxmbTISFAU7953-07-43 13:12:00 Test Item Value Reference Range Interpretation Comments Trig (test code = Trig) 94 [facility] CenterUwqdamnJYHOHQ4942-64-23 13:12:00 Test Item Value Reference Range Interpretation Comments LDL (Calculated) (test code = LDL 49 (Calculated)) [facility] CenterFerjcmrEUXWBN6367-82-85 13:12:00 Test Item Value Reference Range Interpretation Comments CHD Risk (test code = CHD Risk) 1.91 4.00-7.30 [facility] BTNKBDRPJ4109-11-09 13:12:00 Test Item Value Reference Range Interpretation Comments Hgb A1C (test code = Hgb A1C) 6.9 [facility] AND [id number] 13:12:00 Test Item Value Reference Range Interpretation Comments UA Color (test code = UA Color) Ltyellow [facility] AND [id number] 13:12:00 Test Item Value Reference Range Interpretation Comments UA Urobilinogen (test code = UA <=1.0 mg/dL 0.1-1.0 Urobilinogen) [facility] AND [id number] 13:12:00 Test Item Value Reference Range Interpretation Comments UA Ketones (test code = UA Negative mg/dL Ketones) [facility] AND [id number] 13:12:00 Test Item Value Reference Range Interpretation Comments UA Glucose (test code = UA Negative mg/dL Glucose) [facility] AND [id number] 13:12:00 Test Item Value Reference Range Interpretation Comments UA Protein (test code = UA Protein) 100 mg/dL [facility] AND [id number] 13:12:00 Test Item Value Reference Range Interpretation Comments UA Leuk Est (test Negative (09/28/15 8:12 code = UA Leuk Est) AM) [facility] AND [id number] 13:12:00 Test Item Value Reference Range Interpretation Comments UA Nitrite (test code Negative (09/28/15 8:12 = UA Nitrite) AM) [facility] AND [id number] 13:12:00 Test Item Value Reference Range Interpretation Comments UA Bili (test code = Negative *NA*(09/28/15 UA Bili) 8:12 AM) [facility] AND [id number] 13:12:00 Test Item Value Reference Range Interpretation Comments UA Sq Epi (test code = UA Sq Epi) None Seen [facility] AND [id number] 13:12:00 Test Item Value Reference Range Interpretation Comments UA Blood (test code = Negative (09/28/15 8:12 UA Blood) AM) [facility] AND [id number] 13:12:00 Test Item Value Reference Range Interpretation Comments UA pH (test code = UA pH) 6.0 5.0-8.0 [facility] AND [id number] 13:12:00 Test Item Value Reference Range Interpretation Comments UA Spec Grav (test code = UA Spec Grav) 1.010 [facility] AND [id number] 13:12:00 Test Item Value Reference Range Interpretation Comments UA Turbidity (test code = Clear (09/28/15 8:12 UA Turbidity) AM) [facility] [id number] 13:12:00 Test Item Value Reference Range Interpretation Comments U Alb/Crea (test code = U Alb/Crea) 712.8 [facility] [id number] 13:12:00 Test Item Value Reference Range Interpretation Comments U Microalb (test code = U Microalb) [facility].0 [facility] [id number] 13:12:00 Test Item Value Reference Range Interpretation Comments U Creatinine (test code = U Creatinine) 48.40 [facility] [id number] 13:12:00 Test Item Value Reference Range Interpretation Comments Uric Acid (test code = Uric Acid) 7.9 3.8-8.0 [facility]XnufawiAYJNSDFUNWJQ0530-99-15 13:12:00 Test Item Value Reference Range Interpretation Comments AGAP (test code = AGAP) 11.5 10.0-20.0 [facility] HospitalOklutseXWOOOMLHGNHL5845-26-51 13:12:00 Test Item Value Reference Range Interpretation Comments B/C Ratio (test code = B/C Ratio) 20 6-25 [facility] HospitalFsjytqvATVJDZCPHAND8869-35-46 13:12:00 Test Item Value Reference Range Interpretation Comments Globulin (test code = Globulin) 3.2 2.0-4.0 [facility] HospitalIdtdvpjXYQCBWCVARNC7933-84-61 13:12:00 Test Item Value Reference Range Interpretation Comments A/G Ratio (test code = A/G Ratio) 1.4 0.7-1.6 [facility] HospitalTrcdnhzWWZTUPBAXYBJ2389-94-97 13:12:00 Test Item Value Reference Range Interpretation Comments eGFR (test code = eGFR) 49 [facility] HospitalZrllpeqNEPWRIURHJTC6660-03-18 13:12:00 Test Item Value Reference Range Interpretation Comments Bili Total (test code = Bili Total) 0.5 0.2-1.3 [facility] HospitalBaechfsRIRYPJOZHNGL5339-84-54 13:12:00 Test Item Value Reference Range Interpretation Comments Sodium Lvl (test code = Sodium Lvl) 140 135-145 [facility] HospitalUnnqbkfCSFKRIIDXDAA0815-49-99 13:12:00 Test Item Value Reference Range Interpretation Comments Creatinine Lvl (test code = Creatinine 1.48 0.50-1.40 Lvl) [facility] HospitalMhciziuQQBBJCHVQTUW7689-35-37 13:12:00 Test Item Value Reference Range Interpretation Comments BUN (test code = BUN) 29 7-22 [facility] HospitalHbmydqbQVMRLBQTOCOI8608-86-98 13:12:00 Test Item Value Reference Range Interpretation Comments Glucose Lvl (test code = Glucose Lvl) 123 70-99 [facility] HospitalVumkvgxJYLTAVFDTJZA0997-51-03 13:12:00 Test Item Value Reference Range Interpretation Comments ALT (test code = ALT) 20 See_Comment [Auto mated message] The system which ge nerated this result transmit todd reference range : <=65. The reference range was not used to interpr et this result as kimberli l/abnormal. [facility] HospitalRiuaxknRYNUYXLDNNIN0631-38-49 13:12:00 Test Item Value Reference Range Interpretation Comments AST (test code = AST) 9 See_Comment [Auto mated message] The system which ge nerated this result transmit todd reference range : <=37. The reference range was not used to interpr et this result as kimberli l/abnormal. [facility] HospitalKdkwwfyDEBBVPUSPKRJ7791-67-48 13:12:00 Test Item Value Reference Range Interpretation Comments Alk Phos (test code = Alk Phos) 76 39-136 [facility] HospitalQtiiujgHXORJLJAVCKW8604-45-69 13:12:00 Test Item Value Reference Range Interpretation Comments Calcium Lvl (test code = Calcium Lvl) 9.2 8.5-10.5 [facility] HospitalQuzueguIPKRBEHFRWVU7002-97-06 13:12:00 Test Item Value Reference Range Interpretation Comments Albumin Lvl (test code = Albumin Lvl) 4.4 3.5-5.0 [facility] HospitalUbigipiJGVZKBVRLPVF9179-59-99 13:12:00 Test Item Value Reference Range Interpretation Comments Potassium Lvl (test code = Potassium 4.5 3.5-5.1 Lvl) [facility] HospitalJidiibjXMOKGFWWORAK1478-47-96 13:12:00 Test Item Value Reference Range Interpretation Comments Total Protein (test code = Total 7.6 6.4-8.4 Protein) [facility] HospitalBzsbnlfFVEVJNQWSVLE2927-71-59 13:12:00 Test Item Value Reference Range Interpretation Comments CO2 (test code = CO2) 28 24-32 [facility] HospitalUpbohdsHNQZQATXJJNJ6857-65-19 13:12:00 Test Item Value Reference Range Interpretation Comments Chloride Lvl (test code = Chloride Lvl) 105 95-109 [facility] HospitalAxntrhgLYUOOITPQJ9549-31-61 13:12:00 Test Item Value Reference Range Interpretation Comments Segs (test code = Segs) 60.0 45.0-75.0 [facility] HospitalUpuwpyxAAGFORDQUV6180-47-39 13:12:00 Test Item Value Reference Range Interpretation Comments Eosinophils (test code = 3.3 See_Comment [A utomated message] The Eosinophils) system which ge nerated this result tra nsmitted reference range : <=4.0. The reference r carolynn was not used to int erpret this result as normal/abnormal . [facility] HospitalIxttmdqJPUDBDTNXX9724-32-45 13:12:00 Test Item Value Reference Range Interpretation Comments Monocytes (test code = Monocytes) 8.1 2.0-12.0 [facility] HospitalPdxmowiBMPABVDFII0011-26-92 13:12:00 Test Item Value Reference Range Interpretation Comments Lymphocytes (test code = Lymphocytes) 27.4 20.0-40.0 [facility] HospitalWluzvnzURHANFZGJY0798-69-00 13:12:00 Test Item Value Reference Range Interpretation Comments Monocytes # (test code 0.5 See_Comment [Aut omated message] The = Monocytes #) system which generated this result tra nsmitted reference range : <=0.8. The reference r carolynn was not used to int erpret this result as normal/abnormal . [facility] HospitalWkthmguRBJOUTVEFA8119-82-71 13:12:00 Test Item Value Reference Range Interpretation Comments Basophils (test code = 1.2 See_Comment [Aut omated message] The Basophils) system which ge nerated this result tra nsmitted reference range : <=1.0. The reference r carolynn was not used to int erpret this result as normal/abnormal . [facility] HospitalXbyajwyHQGLPNXIGI1772-86-59 13:12:00 Test Item Value Reference Range Interpretation Comments Lymphocytes # (test code = Lymphocytes 1.7 1.0-5.5 #) [facility] HospitalEaozudbMSHKYSXFGT4550-71-09 13:12:00 Test Item Value Reference Range Interpretation Comments Segs-Bands # (test code = Segs-Bands #) 3.6 1.5-8.1 [facility] HospitalMpvkhxpILUJMALMXK2547-95-74 13:12:00 Test Item Value Reference Range Interpretation Comments Eosinophils # (test code 0.2 See_Comment [A utomated message] The = Eosinophils #) system ic generated this result tra nsmitted reference range : <=0.5. The reference r carolynn was not used to int erpret this result as normal/abnormal . [facility] HospitalHjzfxqtYXAKMKRWPH6623-28-85 13:12:00 Test Item Value Reference Range Interpretation Comments Basophils # (test code 0.1 See_Comment [Aut omated message] The = Basophils #) system which generated this result tra nsmitted reference range : <=0.2. The reference r carolynn was not used to int erpret this result as normal/abnormal . [facility] HospitalKusvoqjYLBEAEZCSS6594-41-07 13:12:00 Test Item Value Reference Range Interpretation Comments Hgb (test code = Hgb) 13.9 14.0-18.0 [facility] HospitalQurfvljASMUVLGTCB6398-71-55 13:12:00 Test Item Value Reference Range Interpretation Comments RBC (test code = RBC) 4.57 4.70-6.10 [facility] HospitalUhjbaoeKUZAUZVKHC5430-08-29 13:12:00 Test Item Value Reference Range Interpretation Comments WBC (test code = WBC) 6.1 3.7-10.4 [facility] HospitalYazydjeHROBMUFVZN2039-42-90 13:12:00 Test Item Value Reference Range Interpretation Comments Hct (test code = Hct) 40.6 42.0-54.0 [facility] HospitalBfdmnraUSMQRETVTP8003-99-34 13:12:00 Test Item Value Reference Range Interpretation Comments MCH (test code = MCH) 30.4 pg 27.0-31.0 [facility] HospitalSlwjamaTSAPZZAKES9986-98-50 13:12:00 Test Item Value Reference Range Interpretation Comments MCV (test code = MCV) 88.9 80.0-94.0 [facility] HospitalVjwlgzeSBLHITKLTU6163-45-80 13:12:00 Test Item Value Reference Range Interpretation Comments MCHC (test code = MCHC) 34.2 32.0-36.0 [facility] HospitalVxowyqbZQYIRAQFAO7492-89-33 13:12:00 Test Item Value Reference Range Interpretation Comments Platelet (test code = Platelet) 196 133-450 [facility] HospitalYntwrwrNQPTAABCSL1491-87-96 13:12:00 Test Item Value Reference Range Interpretation Comments RDW (test code = RDW) 13.7 11.5-14.5 [facility] HospitalNgpbzdxZUKEERRKXU2659-76-82 13:12:00 Test Item Value Reference Range Interpretation Comments MPV (test code = MPV) 8.5 7.4-10.4 [facility]MyejmlmRTNECB0807-83-23 13:12:00 Test Item Value Reference Range Interpretation Comments HDL (test code = HDL) 75 [facility] StationZfewrkbNACJJR2391-43-20 13:12:00 Test Item Value Reference Range Interpretation Comments Chol (test code = Chol) 143 [facility] StationMvflwahYHIJTU0080-26-83 13:12:00 Test Item Value Reference Range Interpretation Comments VLDL (test code = VLDL) 19 [facility] StationAbyiwedUSIOKJ2637-82-33 13:12:00 Test Item Value Reference Range Interpretation Comments Trig (test code = Trig) 94 [facility]yyEGQSMA2780-27-63 13:12:00 Test Item Value Reference Range Interpretation Comments LDL (Calculated) (test code = LDL 49 (Calculated)) [facility]RvavcpoLITHWB1190-34-93 13:12:00 Test Item Value Reference Range Interpretation Comments CHD Risk (test code = CHD Risk) 1.91 4.00-7.30 [facility] JHIFJOVIB3292-95-68 13:12:00 Test Item Value Reference Range Interpretation Comments Hgb A1C (test code = Hgb A1C) 6.9 [facility] AND [id number] 13:12:00 Test Item Value Reference Range Interpretation Comments UA Color (test code = UA Color) Ltyellow [facility] AND [id number] 13:12:00 Test Item Value Reference Range Interpretation Comments UA Urobilinogen (test code = UA <=1.0 mg/dL 0.1-1.0 Urobilinogen) [facility] AND [id number] 13:12:00 Test Item Value Reference Range Interpretation Comments UA Ketones (test code = UA Negative mg/dL Ketones) [facility] AND [id number] 13:12:00 Test Item Value Reference Range Interpretation Comments UA Glucose (test code = UA Negative mg/dL Glucose) [facility] AND [id number] 13:12:00 Test Item Value Reference Range Interpretation Comments UA Protein (test code = UA Protein) 100 mg/dL [facility] AND [id number] 13:12:00 Test Item Value Reference Range Interpretation Comments UA Leuk Est (test Negative (09/28/15 8:12 code = UA Leuk Est) AM) [facility] AND [id number] 13:12:00 Test Item Value Reference Range Interpretation Comments UA Nitrite (test code Negative (09/28/15 8:12 = UA Nitrite) AM) [facility] AND [id number] 13:12:00 Test Item Value Reference Range Interpretation Comments UA Bili (test code = Negative *NA*(09/28/15 UA Bili) 8:12 AM) [facility] AND [id number] 13:12:00 Test Item Value Reference Range Interpretation Comments UA Sq Epi (test code = UA Sq Epi) None Seen [facility] AND [id number] 13:12:00 Test Item Value Reference Range Interpretation Comments UA Blood (test code = Negative (09/28/15 8:12 UA Blood) AM) [facility] AND [id number] 13:12:00 Test Item Value Reference Range Interpretation Comments UA pH (test code = UA pH) 6.0 5.0-8.0 [facility] AND [id number] 13:12:00 Test Item Value Reference Range Interpretation Comments UA Spec Grav (test code = UA Spec Grav) 1.010 [facility] AND [id number] 13:12:00 Test Item Value Reference Range Interpretation Comments UA Turbidity (test code = Clear (09/28/15 8:12 UA Turbidity) AM) [facility] [id number] 13:12:00 Test Item Value Reference Range Interpretation Comments U Alb/Crea (test code = U Alb/Crea) 712.8 [facility]2016-07-27 13:12:00 Test Item Value Reference Range Interpretation Comments U Microalb (test code = U Microalb) 345.0 [facility] [id number] 13:12:00 Test Item Value Reference Range Interpretation Comments U Creatinine (test code = U Creatinine) 48.40 [facility] [id number] 13:12:00 Test Item Value Reference Range Interpretation Comments Uric Acid (test code = Uric Acid) 7.9 3.8-8.0 [facility]wayFiblfasJULRBMPCJQXP8102-14-22 13:12:00 Test Item Value Reference Range Interpretation Comments AGAP (test code = AGAP) 11.5 10.0-20.0 [facility]wayBqcmwopZYBDBPDEHZEC9424-20-25 13:12:00 Test Item Value Reference Range Interpretation Comments B/C Ratio (test code = B/C Ratio) 20 6-25 [facility]ActdxlkLZHQVWUFKDMA5918-96-78 13:12:00 Test Item Value Reference Range Interpretation Comments Globulin (test code = Globulin) 3.2 2.0-4.0 [facility] LakewayCcnjmqzARSAIIKWZIJG8752-60-94 13:12:00 Test Item Value Reference Range Interpretation Comments A/G Ratio (test code = A/G Ratio) 1.4 0.7-1.6 [facility] HospitalLqtqnytLMIDYSFEOIEY3491-30-78 13:12:00 Test Item Value Reference Range Interpretation Comments eGFR (test code = eGFR) 49 [facility] HospitalJajpcsrGNPBJWAFNCJY3311-50-42 13:12:00 Test Item Value Reference Range Interpretation Comments Bili Total (test code = Bili Total) 0.5 0.2-1.3 [facility] HospitalXcztiorOAOLVOSAIXBP4979-48-70 13:12:00 Test Item Value Reference Range Interpretation Comments Sodium Lvl (test code = Sodium Lvl) 140 135-145 [facility] HospitalRbumwwvUFRKUIKCFKWL4034-43-82 13:12:00 Test Item Value Reference Range Interpretation Comments Creatinine Lvl (test code = Creatinine 1.48 0.50-1.40 Lvl) [facility] HospitalCzmmrjpXWVZPBWSIKSI3672-28-43 13:12:00 Test Item Value Reference Range Interpretation Comments BUN (test code = BUN) 29 7-22 [facility]OjvmprqUDLYVPMFSCRM3237-60-05 13:12:00 Test Item Value Reference Range Interpretation Comments Glucose Lvl (test code = Glucose Lvl) 123 70-99 [facility]XfytfxnRVKBMPMTRPDM2291-86-14 13:12:00 Test Item Value Reference Range Interpretation Comments ALT (test code = ALT) 20 See_Comment [Auto mated message] The system which ge nerated this result transmit todd reference range : <=65. The reference range was not used to interpr et this result as kimberli l/abnormal. [facility] HospitalMtpgdnkKPJUNRUBDJAI7075-91-96 13:12:00 Test Item Value Reference Range Interpretation Comments AST (test code = AST) 9 See_Comment [Auto mated message] The system which ge nerated this result transmit todd reference range : <=37. The reference range was not used to interpr et this result as kimberli l/abnormal. [facility] HospitalKcdadufIGFXXWYXZUCV4297-84-38 13:12:00 Test Item Value Reference Range Interpretation Comments Alk Phos (test code = Alk Phos) 76 39-136 [facility] HospitalAfiqisnRDBEGQZFIAKE6501-03-90 13:12:00 Test Item Value Reference Range Interpretation Comments Calcium Lvl (test code = Calcium Lvl) 9.2 8.5-10.5 [facility] HospitalIecevovFLOJVUUSMLDG5550-10-84 13:12:00 Test Item Value Reference Range Interpretation Comments Albumin Lvl (test code = Albumin Lvl) 4.4 3.5-5.0 [facility] HospitalNdnwvyrAGKKCJCQWABR5787-74-88 13:12:00 Test Item Value Reference Range Interpretation Comments Potassium Lvl (test code = Potassium 4.5 3.5-5.1 Lvl) [facility] HospitalXqyimidWWTJRNNVCQZM1807-19-28 13:12:00 Test Item Value Reference Range Interpretation Comments Total Protein (test code = Total 7.6 6.4-8.4 Protein) [facility] HospitalEglqylrIYAACNZTZELU7181-94-92 13:12:00 Test Item Value Reference Range Interpretation Comments CO2 (test code = CO2) 28 24-32 [facility] HospitalGamsaceTDMVMJPWPGXX3913-55-19 13:12:00 Test Item Value Reference Range Interpretation Comments Chloride Lvl (test code = Chloride Lvl) 105 95-109 [facility] HospitalFsmyvlnMGIVYUPLRE3969-61-18 13:12:00 Test Item Value Reference Range Interpretation Comments Segs (test code = Segs) 60.0 45.0-75.0 [facility] HospitalYskwyqwBSNOYBTDGO4517-83-02 13:12:00 Test Item Value Reference Range Interpretation Comments Eosinophils (test code = 3.3 See_Comment [A utomated message] The Eosinophils) system which ge nerated this result tra nsmitted reference range : <=4.0. The reference r carolynn was not used to int erpret this result as normal/abnormal . [facility] HospitalXuklospWKCBPBEUJZ6545-10-29 13:12:00 Test Item Value Reference Range Interpretation Comments Monocytes (test code = Monocytes) 8.1 2.0-12.0 [facility] HospitalNfuujjcTAJLDMRCIK2868-54-93 13:12:00 Test Item Value Reference Range Interpretation Comments Lymphocytes (test code = Lymphocytes) 27.4 20.0-40.0 [facility] HospitalArmtentWHCWHERTHH9046-80-83 13:12:00 Test Item Value Reference Range Interpretation Comments Monocytes # (test code 0.5 See_Comment [Aut omated message] The = Monocytes #) system which generated this result tra nsmitted reference range : <=0.8. The reference r carolynn was not used to int erpret this result as normal/abnormal . [facility] HospitalVvbsnfvTYLTJAIEDX0686-13-27 13:12:00 Test Item Value Reference Range Interpretation Comments Basophils (test code = 1.2 See_Comment [Aut omated message] The Basophils) system which ge nerated this result tra nsmitted reference range : <=1.0. The reference r carolynn was not used to int erpret this result as normal/abnormal . [facility] HospitalAmfzpqiTQFGNSSVQX2502-96-64 13:12:00 Test Item Value Reference Range Interpretation Comments Lymphocytes # (test code = Lymphocytes 1.7 1.0-5.5 #) [facility] HospitalEgmjemjVWMJILCXUS1048-89-23 13:12:00 Test Item Value Reference Range Interpretation Comments Segs-Bands # (test code = Segs-Bands #) 3.6 1.5-8.1 [facility] HospitalMqvtvjnZSLXPIHUWF2030-39-25 13:12:00 Test Item Value Reference Range Interpretation Comments Eosinophils # (test code 0.2 See_Comment [A utomated message] The = Eosinophils #) system whic h generated this result tra nsmitted reference range : <=0.5. The reference r carolynn was not used to int erpret this result as normal/abnormal . [facility] HospitalUewnbegXGMPANNFKE8669-74-74 13:12:00 Test Item Value Reference Range Interpretation Comments Basophils # (test code 0.1 See_Comment [Aut omated message] The = Basophils #) system which generated this result tra nsmitted reference range : <=0.2. The reference r carolynn was not used to int erpret this result as normal/abnormal . [facility] HospitalXbdojfoIRTYSUHIDN9535-42-51 13:12:00 Test Item Value Reference Range Interpretation Comments Hgb (test code = Hgb) 13.9 14.0-18.0 [facility] HospitalTdxguqeJGCKEEMYJM7144-15-91 13:12:00 Test Item Value Reference Range Interpretation Comments RBC (test code = RBC) 4.57 4.70-6.10 [facility] HospitalUcsscxsIGTRUFCXBV7083-38-66 13:12:00 Test Item Value Reference Range Interpretation Comments WBC (test code = WBC) 6.1 3.7-10.4 [facility] HospitalBfokrrzBYFKODQDPY0511-08-88 13:12:00 Test Item Value Reference Range Interpretation Comments Hct (test code = Hct) 40.6 42.0-54.0 [facility] HospitalGxypnyqKVUPMBJVKD4156-93-28 13:12:00 Test Item Value Reference Range Interpretation Comments MCH (test code = MCH) 30.4 pg 27.0-31.0 [facility]RcgwqutJRWYXYAJCH4011-61-39 13:12:00 Test Item Value Reference Range Interpretation Comments MCV (test code = MCV) 88.9 80.0-94.0 [facility]AzsbcmhFCRFJDQEMH3985-36-29 13:12:00 Test Item Value Reference Range Interpretation Comments MCHC (test code = MCHC) 34.2 32.0-36.0 [facility]IwvigbwHOGLJKQNYX2846-45-75 13:12:00 Test Item Value Reference Range Interpretation Comments Platelet (test code = Platelet) 196 133-450 [facility] CenterRnlhnfzIFBBLRKBJJ3952-36-88 13:12:00 Test Item Value Reference Range Interpretation Comments RDW (test code = RDW) 13.7 11.5-14.5 [facility] HospitalVlitakqRTCTOZUVGR7701-76-78 13:12:00 Test Item Value Reference Range Interpretation Comments MPV (test code = MPV) 8.5 7.4-10.4 [facility]KmknzemEMYQJY0202-33-66 13:12:00 Test Item Value Reference Range Interpretation Comments HDL (test code = HDL) 75 [facility] HospitalFjnoejiTHZBOU6270-25-91 13:12:00 Test Item Value Reference Range Interpretation Comments Chol (test code = Chol) 143 [facility] CenterYksldrgEFNCOJ5236-68-06 13:12:00 Test Item Value Reference Range Interpretation Comments VLDL (test code = VLDL) 19 [facility] HospitalPjsbgxuOXKEKS6478-84-05 13:12:00 Test Item Value Reference Range Interpretation Comments Trig (test code = Trig) 94 [facility] HospitalTtmzcibSNXXGJ4369-11-96 13:12:00 Test Item Value Reference Range Interpretation Comments LDL (Calculated) (test code = LDL 49 (Calculated)) [facility] HospitalYouiovkXNIZKB5278-44-25 13:12:00 Test Item Value Reference Range Interpretation Comments CHD Risk (test code = CHD Risk) 1.91 4.00-7.30 [facility] XQXMFGPVB2527-19-05 13:12:00 Test Item Value Reference Range Interpretation Comments Hgb A1C (test code = Hgb A1C) 6.9 [facility] HospitalannURINE AND [id number] 13:12:00 Test Item Value Reference Range Interpretation Comments UA Color (test code = UA Color) Ltyellow [facility] AND [id number] 13:12:00 Test Item Value Reference Range Interpretation Comments UA Urobilinogen (test code = UA <=1.0 mg/dL 0.1-1.0 Urobilinogen) [facility] AND [id number] 13:12:00 Test Item Value Reference Range Interpretation Comments UA Ketones (test code = UA Negative mg/dL Ketones) [facility] AND [id number] 13:12:00 Test Item Value Reference Range Interpretation Comments UA Glucose (test code = UA Negative mg/dL Glucose) [facility] AND [id number] 13:12:00 Test Item Value Reference Range Interpretation Comments UA Protein (test code = UA Protein) 100 mg/dL [facility] AND [id number] 13:12:00 Test Item Value Reference Range Interpretation Comments UA Leuk Est (test Negative (09/28/15 8:12 code = UA Leuk Est) AM) [facility] AND [id number] 13:12:00 Test Item Value Reference Range Interpretation Comments UA Nitrite (test code Negative (09/28/15 8:12 = UA Nitrite) AM) [facility] AND [id number] 13:12:00 Test Item Value Reference Range Interpretation Comments UA Bili (test code = Negative *NA*(09/28/15 UA Bili) 8:12 AM) [facility] AND [id number] 13:12:00 Test Item Value Reference Range Interpretation Comments UA Sq Epi (test code = UA Sq Epi) None Seen [facility] AND [id number] 13:12:00 Test Item Value Reference Range Interpretation Comments UA Blood (test code = Negative (09/28/15 8:12 UA Blood) AM) [facility] AND [id number] 13:12:00 Test Item Value Reference Range Interpretation Comments UA pH (test code = UA pH) 6.0 5.0-8.0 [facility] AND [id number] 13:12:00 Test Item Value Reference Range Interpretation Comments UA Spec Grav (test code = UA Spec Grav) 1.010 [facility] AND [id number] 13:12:00 Test Item Value Reference Range Interpretation Comments UA Turbidity (test code = Clear (09/28/15 8:12 UA Turbidity) AM) [facility] [id number] 13:12:00 Test Item Value Reference Range Interpretation Comments U Alb/Crea (test code = U Alb/Crea) 712.8 [facility] [id number] 13:12:00 Test Item Value Reference Range Interpretation Comments U Microalb (test code = U Microalb) 345.0 [facility]2016-07-27 13:12:00 Test Item Value Reference Range Interpretation Comments U Creatinine (test code = U Creatinine) 48.40 [facility]
--- NOTE | 2022-08-01 09:19 | RAD REPORT ---
EXAM DESCRIPTION: CT - Head C Spine Mpr Wo Con - 08/01/2022 9:04 am CLINICAL HISTORY: Head and neck injury status post fall. Head and neck pain COMPARISON: None. TECHNIQUE: Computed axial tomography of the head and cervical spine was obtained. Sagittal and coronal reconstruction was performed. All CT scans are performed using dose optimization technique as appropriate and may include automated exposure control or mA/KV adjustment according to patient size. FINDINGS: An intracranial bleed is not seen. The ventricles are normal in caliber. No significant hypodensity within the brain. An extra-axial fluid collection is not noted. Fluid within the visualized sinuses and mastoids is not seen A cervical fracture is not visualized. No dislocation is noted. Anterior fusion C4 through C7. Spondylosis involves the cervical spine No change in the left upper lobe nodule compared to May 28, 2022 IMPRESSION: No acute intracranial abnormality is seen. A cervical fracture is not visualized. If the patient continues to have symptoms to suggest intracranial /spinal cord pathology then MRI wou ld be recommended Stable left upper lobe nodule. Refer to May 2022 report for recommendation
--- NOTE | 2022-08-01 09:20 | RAD REPORT ---
EXAM DESCRIPTION: Luz Single View08/01/2022 9:04 am CLINICAL HISTORY: Chest pain COMPARISON: July 03, 2022 FINDINGS: Mild bibasilar lung opacities without significant change probably pneumonia Stable left upper lobe nodule Cardiomegaly
[2022-08-01 10:33] LABS: Absolute Lymphocytes (CBC) 1.8 K/uL (0.7-4.9); Hematocrit 29.5 % (39.6-49.0); MCV 96.8 fL (80-100); MPV 7.6 fL (7.6-11.3); RBC Red Blood Cell Count 3.05 M/uL (4.33-5.43)
[2022-08-01 10:53] LABS: Magnesium 1.8 mg/dL (1.6-2.4); Potassium 3.8 mEq/L (3.5-5.1)
[2022-08-01 10:58] LABS: Troponin High Sensitivity 166.6 pg/mL (<58.9)
--- NOTE | 2022-08-01 11:13 | EDPHYS ---
Physician Documentation [facility] Name: Joe Singh Age: 72 yrs Sex: Male : 1950 Arrival Date: 08/01/2022 Time: 08:42 Bed 6 Private MD: ED Physician Matt Sterling HPI: 08/01 11:33 This 72 yrs old Male presents to ER via EMS with complaints of fall. kb 11:36 Details of fall: The patient fell from an upright position. Onset: The symptoms/episode kb began/occurred this morning. Associated injuries: The patient sustained no obvious injury. Severity of symptoms: At their worst the symptoms were very mild, mild, in the emergency department the symptoms are unchanged. The patient has not experienced similar symptoms in the past. The patient has been recently seen by a physician:. 11:36 EMS called to assisted after pt was found on floor due to apparent fall. Pt reports kb he stood from the chair and tripped causing him to slide to the ground. denies any injury or pain. Unknown LOC, unknown time of incident. Historical: - Allergies: 08:54 No Known Allergies; ph - PMHx: 08:54 Atrial fibrillation; Chronic obstructive lung disease; neuropathy; Congestive heart ph failure; - Immunization history:: Adult Immunizations unknown. - Social history:: Smoking status: Patient/guardian denies using tobacco, the patient reports quitting approximately 8 years ago. ROS: 11:04 Constitutional: Negative for fever, chills, and weight loss. kb 11:26 Respiratory: Positive for shortness of breath. kb 11:26 All other systems are negative. Exam: 09:48 Constitutional: This is a well developed, well nourished patient who is awake, alert, kb and in no acute distress. Head/Face: Normocephalic, atraumatic. ENT: Moist Mucous membranes Cardiovascular: Regular rate and rhythm with a normal S1 and S2. No gallops, murmurs, or rubs. No pulse deficits. Respiratory: Respirations even and unlabored. No increased work of breathing. Talking in full sentences Abdomen/GI: Soft, non-tender. No distention MS/ Extremity: Pulses equal, no cyanosis. Neurovascular intact. Full, normal range of motion. Neuro: Awake and alert, GCS 15, oriented to person, place, time, and situation. Moves all extremities. 09:48 ECG was reviewed by the Attending Physician. 11:33 Skin: injury, contusion to left medial aspect of knee. Healing laceration above left kb eyebrow. . 11:33 Skin: Healing lesions to left side from recent shingles. 11:36 Cardiovascular: Edema: 2+ edema to level of left ankle and right ankle. Vital Signs: 08:50 BP 150 / 93; Pulse 78; Resp 18; Temp 97.3; Pulse Ox 97% 2 lpm ; Weight 90.72 kg; Height ph 6 ft. 0 in. ; Pain 0/10; 10:04 BP 109 / 61; Pulse 54; Resp 20; Pulse Ox 93% on 10 lpm Venturi mask; ph 11:11 BP 107 / 53; Pulse 55; Resp 18; Pulse Ox 95% on 10 lpm Venturi mask; ph 12:30 BP 102 / 51; Pulse 54; Resp 20; Pulse Ox 95% on 10 lpm Venturi mask; ph 13:30 BP 103 / 51; Pulse 53; Resp 18; Pulse Ox 94% on NC; ph 15:00 BP 112 / 51; Pulse 54; Resp 12; Pulse Ox 98% on NC; ph 16:00 BP 104 / 52; Pulse 56; Resp 10; Pulse Ox 98% on NC; ph 17:03 BP 107 / 61; Pulse 55; Resp 18; Pulse Ox 98% on NC; ph 08:50 Body Mass Index 27.12 (90.72 kg, 182.88 cm) ph 08:50 Pain Scale: Adult ph MDM: 08:49 Patient medically screened. kb 11:11 Data reviewed: vital signs, nurses notes. kb 11:27 Differential diagnosis: closed head injury, contusion, CHF, pulmonary edema, pneumonia, kb COPD exacerbation. Consideration of Admission/Observation Patient was admitted/placed on observation. 11:30 Management of patient was discussed with the following: Hospitalist: RUSLAN Oseguera accepts kb pt for admission under Dr Alonso. Historians other than the Patient: EMS: [facility]. Counseling: I had a detailed discussion with the patient and/or guardian regarding: the historical points, exam findings, and any diagnostic results supporting the discharge/admit diagnosis, lab results, radiology results, the need for further work-up and treatment in the hospital. 12:53 Management of patient was discussed with the following: Primary Care Provider: Rock bhatia accepts pt for admission. 13:59 ED course: Pt became agitated and confused, which is reportedly normal for him per assisted staff. Pt has Haldol PRN for agitation as a home medication. Home dose ordered. . 08/01 08:50 Order name: Basic Metabolic Panel; Complete Time: 11:02 kb 08/01 08:50 Order name: CBC with Diff; Complete Time: 10:38 kb 08/01 08:50 Order name: Magnesium; Complete Time: 11:02 kb 08/01 08:50 Order name: NT PRO-BNP; Complete Time: 11:02 kb 08/01 08:50 Order name: Troponin HS; Complete Time: 11:02 kb 08/01 08:50 Order name: CPK; Complete Time: 11:02 kb 08/01 11:28 Order name: Blood Culture Adult (2) kb 08/01 11:28 Order name: Lactate w/ 2H reflex if indic.; Complete Time: 12:39 kb 08/01 12:53 Order name: UDS; Complete Time: 07:25 kb 08/01 18:50 Order name: ABG Arterial Blood Gas; Complete Time: 07:25 EDMS 08/01 19:15 Order name: Ammonia; Complete Time: 07:25 EDMS 08/01 08:50 Order name: XRAY Chest (1 view); Complete Time: 09:21 kb 08/01 08:50 Order name: CT Head C Spine; Complete Time: 09:21 kb 08/01 17:09 Order name: CT Head Brain wo Cont kb 08/01 18:50 Order name: CT; Complete Time: 07:25 EDMS 08/01 08:50 Order name: EKG; Complete Time: 08:51 kb 08/01 08:50 Order name: Cardiac monitoring; Complete Time: 08:59 kb 08/01 08:50 Order name: EKG - Nurse/Tech; Complete Time: 09:24 kb 08/01 08:50 Order name: IV Saline Lock; Complete Time: 08:59 kb 08/01 08:50 Order name: Labs collected and sent; Complete Time: 09:24 kb 08/01 08:50 Order name: O2 Per Protocol; Complete Time: 08:59 kb 08/01 08:50 Order name: O2 Sat Monitoring; Complete Time: 08:59 kb 08/01 09:38 Order name: Labs - recollect needed; Complete Time: 10:03 kb EC:48 Rate is 57 beats/min. Rhythm is regular. QRS Fries is Normal. NH interval is normal at kb 174 msec. QRS interval is normal at 87 msec. QT interval is normal at 478 msec. Administered Medications: 11:10 Drug: D10 in Water IVP 250 ml Route: IVP; Site: right forearm; ph 13:40 Drug: HALdol (as decanoate) IM 2 mg Route: IM; Site: right deltoid; ph 15:02 Drug: Furosemide IVP 40 mg Route: IVP; Site: right forearm; ph Disposition: 08/02 07:24 Co-signature as Attending Physician, Matt Sterling MD I reviewed the patient's care rn provided by the Advanced Practice Provider and agree with the diagnosis and treatment plan. 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 Head/Face: Normocephalic, atraumatic. kb 11:36 09:48 Constitutional: This is a well developed, well nourished patient who is awake, kb alert, and in no acute distress. Head/Face: Normocephalic, atraumatic. ENT: Moist Mucous membranes Cardiovascular: Regular rate and rhythm with a normal S1 and S2. No gallops, murmurs, or rubs. No pulse deficits. Respiratory: Respirations even and unlabored. No increased work of breathing. Talking in full sentences Abdomen/GI: Soft, non-tender. No distention MS/ Extremity: Pulses equal, no cyanosis. Neurovascular intact. Full, normal range of motion. Neuro: Awake and alert, GCS 15, oriented to person, place, time, and situation. Moves all extremities. kb 12:53 11:13 Benny Alonso kb 17:05 11:13 kb emmanuel
--- NOTE | 2022-08-01 11:13 | ER ---
Nurse's Notes [facility] Name: Joe Singh Age: 72 yrs Sex: Male : 1950 Arrival Date: 08/01/2022 Time: 08:42 Bed 6 Private MD: Diagnosis: Acute on chronic combined systolic (congestive) and diastolic (congestive) heart failure;Elevated troponin Presentation: 08/01 08:50 Chief complaint: EMS states: Pt from [facility], found on floor in his room, unknown ph downtime, pt states that he was trying to walk from bed to chair. Staff reports that pt is confused, A\T\O x 4 upon arrival to ED, denies pain, laceration to L eyebrow, staff at nursing stated that it was present upon admission and was reopened d/t fall, hx of COPD on NC continuously, VSS, BGL 90. Coronavirus screen: Vaccine status: Patient reports receiving the 2nd dose of the covid vaccine. Ebola Screen: No symptoms or risks identified at this time. Initial Sepsis Screen: Does the patient meet any 2 criteria? No. Patient's initial sepsis screen is negative. Does the patient have a suspected source of infection? No. Patient's initial sepsis screen is negative. Risk Assessment: Do you want to hurt yourself or someone else? Patient reports no desire to harm self or others. Onset of symptoms was August 01, 2022. 08:50 Method Of Arrival: EMS: [facility] ph 08:50 Acuity: JENNY 3 ph Triage Assessment: 08:54 General: Appears in no apparent distress. Behavior is calm, cooperative. Pain: Denies ph pain. Neuro: Level of Consciousness is awake, alert, obeys commands, Oriented to person, place, time, situation. Cardiovascular: Capillary refill < 3 seconds in bilateral fingers Patient's skin is warm and dry. Cardiovascular: Edema is 1+ to left midcalf, left ankle, right midcalf and right ankle. Respiratory: Airway is patent Respiratory effort is even, unlabored. GI: No signs and/or symptoms were reported involving the gastrointestinal system. Derm: Rash noted that is red, vesicular, shingles rash noted to L flank and upper abdomen. Derm: skin tear to L forearm, [facility] w/ [facility]. Derm: small laceration to L eyebrow area, minimal bleeding noted. Historical: - Allergies: 08:54 No Known Allergies; ph - PMHx: 08:54 Atrial fibrillation; Chronic obstructive lung disease; neuropathy; Congestive heart ph failure; - Immunization history:: Adult Immunizations unknown. - Social history:: Smoking status: Patient/guardian denies using tobacco, the patient reports quitting approximately 8 years ago. Screenin:[address] [facility] ED Fall Risk Assessment (Adult) History of falling in the last 3 months, ph including since admission Yes- single mechanical fall (1 pt) Confusion or Disorientation No (0 pts) Intoxicated or Sedated No (0 pts) Impaired Gait Yes (1 pt) Mobility Assist Device Used No (0 pt) Altered Elimination No (0 pt) Score/Fall Risk Level 0 - 2 = Low Risk Oriented to surroundings, Maintained a safe environment, Hourly rounding (assess needs \T\ fall precautionary measures) done. Abuse screen: Denies threats or abuse. Denies injuries from another. Nutritional screening: No deficits noted. Tuberculosis screening: No symptoms or risk factors identified. Assessment: 08:58 Reassessment: Pt taken to CT via stretcher. General: SEE TRIAGE ASSESSMENT. ph 10:03 Reassessment: Patient appears in no apparent distress at this time. Patient and/or ph family updated on plan of care and expected duration. Pain level reassessed. Pt asleep w/ equal and unlabored respirations, recollect sent to lab, awaiting results. 17:02 Reassessment: Patient appears in no apparent distress at this time. Patient and/or ph family updated on plan of care and expected duration. Pain level reassessed. Dr Wilkerson at bedside speaking w/ family. 18:00 Reassessment: PT RETURNED FROM CT. PT AGITATED AND NON-VERBAL, REMOVING PIV AND bp MONITORING EQUIPMENT, SCRATCHING STAFF AND ATTEMPTING TO EXIT BED. PT REQUIRING FREQUENT REDIRECTION TO MAINTAIN HEALTH CARE ACTIVITIES. 19:25 Reassessment: attempted to call report. aa9 Vital Signs: 08:50 BP 150 / 93; Pulse 78; Resp 18; Temp 97.3; Pulse Ox 97% 2 lpm ; Weight 90.72 kg; Height ph 6 ft. 0 in. ; Pain 0/10; 10:04 BP 109 / 61; Pulse 54; Resp 20; Pulse Ox 93% on 10 lpm Venturi mask; ph 11:11 BP 107 / 53; Pulse 55; Resp 18; Pulse Ox 95% on 10 lpm Venturi mask; ph 12:30 BP 102 / 51; Pulse 54; Resp 20; Pulse Ox 95% on 10 lpm Venturi mask; ph 13:30 BP 103 / 51; Pulse 53; Resp 18; Pulse Ox 94% on NC; ph 15:00 BP 112 / 51; Pulse 54; Resp 12; Pulse Ox 98% on NC; ph 16:00 BP 104 / 52; Pulse 56; Resp 10; Pulse Ox 98% on NC; ph 17:03 BP 107 / 61; Pulse 55; Resp 18; Pulse Ox 98% on NC; ph 08:50 Body Mass Index 27.12 (90.72 kg, 182.88 cm) ph 08:50 Pain Scale: Adult ph ED Course: 08:48 Patient arrived in ED. kb 08:48 Donna Resendiz F[facility]-C [facility]. kb 08:48 Matt Sterling MD is Attending Physician. kb 08:50 Esme Barksdale, YOLANDA is Primary Nurse. ph 08:54 Triage completed. ph 08:57 Arm band placed on Patient placed in an exam room, on a stretcher, on oxygen, on ph manager cardiac, on pulse oximetry. 08:57 Patient has correct armband on for positive identification. Bed in low position. Call ph light in reach. Side rails up X 1. Client placed on continuous cardiac and pulse oximetry monitoring. NIBP monitoring applied. Door closed. Noise minimized. Warm blanket given. PO fluids given. 09:05 XRAY Chest (1 view) In Process Unspecified. EDMS 09:05 CT Head C Spine In Process Unspecified. EDMS 09:24 Initial lab(s) drawn, by me, sent to lab. EKG done, by ED staff, reviewed by Donna FELIX. Maintain EMS IV. Dressing intact. Good blood return noted. Site clean \T\ dry. Gauge \T\ site: 20 RFA. IV is patent, with fluids infusing freely, with good blood return. 11:13 Benny Alonso is Hospitalizing Provider. kb 12:53 Hospitalizing Provider role handed off by Benny Alonso kb 12:53 Leonel Wilkerson MD is Hospitalizing Provider. kb 17:26 No provider procedures requiring assistance completed. Patient admitted, IV remains in ph place. Administered Medications: 11:10 Drug: D10 in Water IVP 250 ml Route: IVP; Site: right forearm; ph 13:40 Drug: HALdol (as decanoate) IM 2 mg Route: IM; Site: right deltoid; ph 15:02 Drug: Furosemide IVP 40 mg Route: IVP; Site: right forearm; ph Medication: 08:58 VIS not applicable for this client. ph Outcome: 11:13 Decision to Hospitalize by Provider. kb 19:25 Condition: stable aa9 20:05 Admitted to Med/surg accompanied by tech, room 210, with oxygen, with chart, Report aa9 called to Richardson 20:05 Instructed on the need for admit. 20:24 Patient left the ED. sb4 Signatures: Dispatcher [employer] EDMS Donna Resendiz, GORDON-Esme Weeks RN RN ph Peltier, Brian RN Magalys Martin RN RN aaRupinder Ochoa, MIK PATao sb4 Corrections: (The following items were deleted from the chart) 17:02 17:02 Furosemide IVP 40 mg IVP in right forearm ph ph 19:01 18:00 Non-Violent Restraint: Initiated on August 01, 2022 at 18:00 Unable to provide bp Restraint education. PT UNABLE TO UNDERSTAND. Actions/Behavior observed: Confused/disoriented, has impaired decision making, has decreased level of consciousness, unable to follow instructions, repeated attempts to remove/tamper lines/tubes/IV med devices \T\ wound dressing, Less restrictive alternatives attempted: decrease environmental stimuli, placed near Nurse station, reoriented to location, medications evaluated, repositioned, Alternative interventions: Ineffective. Clinical justification for use: line protection, patient safety, Mental status: agitated/restless, confused, Cognition: poor judgement, poor safety awareness, unable to follow commands, Circulation: Within defined parameters (based on Cardiovascular assessment) Skin integrity: Within defined parameters (based on Integumentary assessment) Signs of injury related to restraint: No injuries noted. Range of Motion (ROM): performed. Restraint status: Soft wrist restraint (Right) Started. Soft wrist restraint (Left) Started. Criteria to discontinue Restraint not met. Restraint continued bp 19:02 18:00 Reassessment: PT RETURNED FROM CT. PT AGITATED AND NON-VERBAL, REMOVING PIV AND bp MONITORING EQUIPMENT, SCRATCHING STAFF AND ATTEMPTING TO EXIT BED. PT NOT RESPONDING TO VERBAL REDIRECTION AND EXHIBITING POOR SAFETY AWARENESS. RESTRAINTS PLACED FOR PT SAFETY. PT UNABLE TO ARTICULATE RESTRAINT RELEASE CRITERIA bp
[2022-08-01] MEDS ORDERED: D10W 250 ML IV ONE (11:14)
[2022-08-01] MEDS ORDERED: HALOPERIDOL LACT 5 MG/ML INJ ONE (13:48)
--- NOTE | 2022-08-01 17:33 | P.HP ---
Certification for Inpatient Patient admitted to: Inpatient With expected LOS: >2 Midnights Patient will require the following post-hospital care: Senior Care Practitioner: I am a practitioner with admitting privileges, knowledge of patient current condition, hospital course, and medical plan of care. Services: Services provided to patient in accordance with Admission requirements found in Title 42 Section 412.3 of the Code of Federal Regulations Patient History Date of Service: 08/01/22 Primary Care Provider: Rock Reason for admission: chf exacerbation History of Present Illness: Patient is an office patient of [facility]. He has a history of copd and has had multiple admissions over the past few months. Was sent to [facility] 4 days ago. Was found on the floor. Evidently he recieved a haldol there when he got agitated. The patient came to the ER and was doing well. Was to be admitted with the diagnosis of CHF exacerbation. He became agitated and was given 2mg of haldol in the ER. Which was the reported dosage from the [facility]. The patient is unresponsive at the time. His brother and sister in law are at the bedside. Seems his son recently went to [place]. They have been smoking a lot of marijuana since then. Which would explain the multiple admissions for Copd exacerbation. His brother is upset with his care. He was taking off his oxygen and having confusion in [facility]. Allergies No Known Allergies Allergy (Verified 07/25/22 01:57) Home Medications: Albuterol Sulfate [Proair Respiclick] 2 inh IH Q6HP PRN 06/27/22 Arformoterol Tartrate [Brovana] 15 mcg NEB BIDRESP 06/27/22 Baclofen 10 mg PO TIDP PRN 06/27/22 Benzonatate [Tessalon Perle] 100 mg PO TIDP PRN 06/27/22 Budesonide [Pulmicort] 1 puff IH BID 06/27/22 Bumetanide [Bumex] 1 mg PO BID 06/27/22 Clobetasol Propionate [Clobex] 59 ml TP BIDP PRN 06/27/22 Clonidine HCl [Catapres*] 0.2 mg PO TIDP PRN 06/27/22 Codeine/APAP [Tylenol W/Codeine #3 tab] 1 tab PO Q6HP PRN 06/27/22 Desoximetasone 15 gm TP BID 06/27/22 Ergocalciferol (Vitamin D2) [Drisdol] 50,000 unit PO SEECOM 06/27/22 Fluticasone Propionate [Flonase Allergy Relief] 2 sprays NS DAILY 06/27/22 Glipizide [Glipizide Xl] 2.5 mg PO BID 06/27/22 Ipratropium Neb [Atrovent Neb] 0.2 mg IH Q4HP PRN 06/27/22 Levothyroxine Sodium [Levothyroxine] 150 mcg PO DAILY 06/27/22 Magnesium Oxide [Mag 0X Tab] 500 mg PO DAILY 06/27/22 NIFEdipine [Nifedipine ER] 30 mg PO DAILY 06/27/22 Pravastatin [Pravachol*] 40 mg PO BEDTIME 06/27/22 Tamsulosin [Flomax] 0.4 mg PO BEDTIME 06/27/22 Trazodone [Desyrel] 50 mg PO BEDTIME 06/27/22 hydrOXYzine HCL [Atarax] 25 mg PO TIDP PRN 06/27/22 prednisoLONE [Prednisolone] 5 mg PO DAILY 06/27/22 Furosemide [Lasix] 40 mg PO DAILY #30 tab 07/05/22 Alprazolam [Xanax] 0.5 mg PO BEDTIME 07/25/22 Gabapentin 300 mg PO TID 07/25/22 Tiotropium Warrens [Spiriva] 2.5 mcg IN DAILY 07/25/22 - Past Medical/Surgical History Diabetic: Yes -: CHF -: Diabetes Type 2 -: CKD -: Afib -: appendectomy -: Neck surgery 2013 -: Left knee surgery - Family History Father -: Heart disease, Liver disease Notes: Alcoholic Mother -: Heart disease, Hypertension, Diabetes Sister -: Heart disease Notes: NE Brother -: Heart disease Notes: NE, CHF older sister -: Heart disease, Kidney disease - Social History Alcohol use: No CD- Drugs: No Caffeine use: Yes Review of Systems is unable to be obtained Physical Examination - Physical Exam General: Unresponsive HEENT: Atraumatic, PERRLA, Mucous membr. moist/pink, EOMI, Sclerae nonicteric Neck: Supple, 2+ carotid pulse no bruit, No LAD, Without JVD or thyroid abnormality Respiratory: Clear to auscultation bilaterally, Normal air movement Cardiovascular: Regular rate/rhythm, Normal S1 S2 Gastrointestinal: Normal bowel sounds, No tenderness Musculoskeletal: No tenderness Integumentary: No rashes Neurological: Normal gait, Normal speech, Normal strength at 5/5 x4 extr, Normal tone, Normal affect Lymphatics: No axilla or inguinal lymphadenopathy - Studies Laboratory Data (last 24 hrs) 08/01/22 10:00: WBC 5.80, Hgb 9.7 L, Hct 29.5 L, Plt Count 297 08/01/22 10:00: Sodium 136, Potassium 3.8, BUN 32 H, Creatinine 2.74 H, Glucose 56 L, Magnesium 1.8 Assessment and Plan - Problems (Diagnosis) (1) CHF exacerbation Current Visit: Yes Status: Acute Plan: will gently diuresis the patient with Bumex. Consult to Dr. Bhatia. Need to be careful and monitor the renal function. Qualifiers: Heart failure type: diastolic Qualified Code(s): I50.33 - Acute on chronic diastolic (congestive) heart failure (2) Delirium Current Visit: Yes Status: Acute Plan: Most likely a combination of medications, hypoxia or snf marijuana abuse. Will recheck a head CT Be very careful with sedation. Consult to Dr. Gregory. (3) COPD (chronic obstructive pulmonary disease) Current Visit: No Status: Acute Plan: Patient lungs are atif. Will start him on PRN Levalbuterol. No need for steroids at this time Qualifiers: COPD type: chronic bronchitis (4) Drug abuse Current Visit: No Status: Chronic Plan: chronic marijuana abuse. Will need to be careful with sedation (5) CKD stage 4 secondary to hypertension Current Visit: No Status: Chronic Plan: His creatine is actually improving. Will continue to monitor. If her worsens we can consult Dr. Zayas Discharge Plan: Group Home Plan to discharge in: Greater than 2 days - Advance Directives Does patient have a Living Will: No Does patient have a Durable POA for Healthcare: No - Code Status/Comfort Care Code Status Assessed: Yes Code Status: Full Code Physician Review: Patient Assessed, Agree with Above Assessment and Plan Critical Care: No Time Spent Managing Pts Care (In Minutes): 50
[2022-08-01] MEDS ORDERED: FUROSEMIDE 20 MG/ 2ML VIAL IV SCH (17:36)
[2022-08-01] MEDS ORDERED: GLUCAGON 1 MG/VIAL IM PRN (17:41)
[2022-08-01] MEDS ORDERED: D10W 250 ML BAG IV PRN (17:41)
--- NOTE | 2022-08-01 18:48 | RAD REPORT ---
EXAM DESCRIPTION: CT - Head Brain Wo Cont - 08/01/2022 6:12 pm CLINICAL HISTORY: ams COMPARISON: Head C Spine Cap Wo Con dated 07/24/2022 TECHNIQUE: Noncontrast head CT images ad were obtained without IV contrast. Multiplanar reformats we re generated and reviewed. All CT scans are performed using dose optimization technique as appropriate and may include automated exposure control or mA/KV adjustment according to patient size. FINDINGS: No intracranial hemorrhage, mass, or edema. Midline structures are unremarkable. Normal ventricular caliber for age. Ivey-white matter differentiation is preserved, without evidence of acute infarct. No abnormal extra- axial fluid collections. Mastoid air cells and visualized portions of the paranasal sinuses are clear. No acute bony findings. IMPRESSION: No evidence of an acute intracranial process.
[2022-08-01 18:49] LABS: Arterial Blood Carboxyhemoglob 1.3 % (0-1.5); Blood Gas Oxyhemoglobin 87.6 % (94-97); Blood O2 Saturation 90.2 % (92-98.5)
[2022-08-01] MEDS: INSULIN -REGULAR HUMAN 50 UNIT/0.5 ML ML SQ SCH (21:00)
[2022-08-01 21:29] VITALS: BMI 26.5
[2022-08-01 21:53] LABS: Urine Bacteria <20 /HPF (<20); Urine Bilirubin NEGATIVE (Negative); Urine Blood Trace (Negative); Urine Clarity Clear (Clear); Urine Color Light-Yellow (Yellow); Urine Glucose TRACE (Negative); Urine Mucus Slight /HPF (None Seen); Urine Protein 3+ (Negative); Urine RBC <5 /HPF (None Seen); Urine Urobilinogen Normal (Normal)
[2022-08-01 22:10] LABS: Barbiturates NEGATIVE (NEGATIVE); Benzodiazepines NEGATIVE (NEGATIVE); Cocaine NEGATIVE (NEGATIVE); METHAMPHETAM NEGATIVE (NEGATIVE); Methadone NEGATIVE (NEGATIVE); Opiates POSITIVE (NEGATIVE); Phencyclidine NEGATIVE (NEGATIVE); THC Cannibis POSITIVE (NEGATIVE)
[2022-08-01] MEDS: HYDROMORPHONE HCL 0.5 MG/0.5 ML INJ IV PRN (22:17)
[2022-08-02 05:56] LABS: Absolute Lymphocytes (CBC) 0.9 K/uL (0.7-4.9); Hematocrit 26.9 % (39.6-49.0); Lymphocytes % 19.2 % (15.3-44.8); MCV 96.3 fL (80-100); MPV 7.1 fL (7.6-11.3); RBC Red Blood Cell Count 2.79 M/uL (4.33-5.43)
[2022-08-02 06:13] LABS: Potassium 3.5 mEq/L (3.5-5.1)
[2022-08-02] MEDS: INSULIN -REGULAR HUMAN 50 UNIT/0.5 ML ML SQ SCH ×4 (07:30→21:00)
[2022-08-02] MEDS ORDERED: PNEUMOCOCCAL VACCINE 0.5 ML IMVAC ONE (08:00)
[2022-08-02] MEDS: BUMETANIDE 1 MG/4 ML VIAL IV SCH (08:54)
[2022-08-02] MEDS: HYDROMORPHONE HCL 0.5 MG/0.5 ML INJ IV PRN (08:55)
--- NOTE | 2022-08-02 11:28 | CON ---
Date of Consultation: 08/02/2022 Reason For Consultation: CHF. History Of Present Illness: Mr. Singh is 72, [facility] facility resident multiple past medica l history and problems including anxiety, diabetes, congestive heart failure, COPD, severe hypertensi on, dyslipidemia. He is a recurrent patient as far as the congestive heart failure is concerned. Medications: Include Xanax, glipizide, Haldol, inhalers, magnesium, Lasix, Bumex, nifedipine, clonid ine, Pravachol. Allergies: NONE. Review of Systems: Negative. Social History: Negative. Family History: Negative. Physical Examination: Vital Signs: He appeared to be hypoxic, mild respiratory distress on O2. His PO2 was 60, pCO2 was 9 0, pH 7.19. HEENT: Negative. Neck: Supple. No bruit. Chest: Revealed expiratory wheezing. Basilar rales. Cardiac: Revealed a regular rhythm and rate without murmurs, gallops, or rubs. Abdomen: Obese, but benign. Extremities: Revealed mild edema. Diagnostic Data: Hemoglobin is 8.9. EKG is nonspecific. Chest x-ray showed CHF. Creatinine is 2.7 1. Troponin is 122. Urinalysis showed positive opiates, positive THC. Impression And Plan: 1.Acute on chronic systolic congestive heart failure exacerbation. 2.Acute on chronic obstructive pulmonary disease exacerbation. 3.Anxiety. 4.Diabetes. 5.Elevated troponin secondary to demand ischemia. 6.Hypertension, well controlled. 7.Dyslipidemia. 8.Renal failure. 9.Anemia. 10.Patient has hypercapnia, congestive heart failure. He needs to be diuresed, needs to be on steroid inhalers. Nephrology should follow him. No further cardiac recommendation at this point. CHANDAN/ECTOR Voice ID: [id number] Report ID: [id number]
--- NOTE | 2022-08-02 12:10 | EKG ---
Test Date: 2022-08-01 Test Time: 09:11:54 Eap Specialist: PH MEASUREMENT RESULTS: Intervals: Rate: 57 NV: 174 QRSD: 98 QT: 492 QTc: 478 Spencer: P: 84 NV: 174 QRS: 83 T: 194 INTERPRETIVE STATEMENTS: Sinus bradycardia with premature atrial complexes ST & T wave abnormality, consider inferior ischemia ST & T wave abnormality, consider anterolateral ischemia Prolonged QT Abnormal ECG Compared to ECG 07/24/2022 19:22:46 Atrial premature complex(es) now present Sinus rhythm no longer present ST (T wave) deviation still present Possible ischemia still present Electronically Signed On 08-02-22 12:06:14 CDT by Fred Bhatia
--- NOTE | 2022-08-02 12:41 | P.PN ---
Subjective Date of Service: 08/02/22 Primary Care Provider: Rock Chief Complaint: chf exacerbation Subjective: Improving (off the bipap) Review of Systems 10-point ROS is otherwise unremarkable General: Weakness Respiratory: Shortness of Breath Physical Examination - Vital Signs Temperature: 98.6 F Blood Pressure: 153/92 Pulse: 68 Respirations: 18 Pulse Ox (%): 98 - Physical Exam General: Mild distress HEENT: Atraumatic, PERRLA, EOMI Neck: Supple, JVD not distended Respiratory: Expiratory wheezes (mild) Cardiovascular: Regular rate/rhythm, Normal S1 S2 Gastrointestinal: Normal bowel sounds, No tenderness Musculoskeletal: No tenderness Integumentary: No rashes Neurological: Normal speech, Normal tone, Normal affect Lymphatics: No axilla or inguinal lymphadenopathy Assessment And Plan - Current Problems (Diagnosis) (1) CHF exacerbation Current Visit: Yes Status: Acute Plan: will gently diuresis the patient with Bumex. Consult to Dr. Bhatia. Need to be careful and monitor the renal function. 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 Will recheck a head CT Be very careful with sedation. Consult to Dr. Gregory. (3) COPD (chronic obstructive pulmonary disease) Current Visit: No Status: Acute Plan: Patient lungs are atif. Will start him on PRN Levalbuterol. No need for steroids at this time 08/02 start the patient on a normal dosage of steroids. Qualifiers: COPD type: chronic bronchitis (4) Drug abuse Current Visit: No Status: Chronic Plan: chronic marijuana abuse. Will need to be careful with sedation (5) CKD stage 4 secondary to hypertension Current Visit: No Status: Chronic Plan: His creatine is actually improving. Will continue to monitor. If her worsens we can consult Dr. Zayas Discharge Plan: Alf Plan to discharge in: 24 Hours - Code Status/Comfort Care Code Status Assessed: No Physician Review: Patient Assessed, Agree with Above Assessment and Plan Critical Care: No Time Spent Managing PTS Care (In Minutes): 20
[2022-08-02] MEDS: ENOXAPARIN 30 MG/0.3 ML SQ SCH (16:02)
[2022-08-02] MEDS: dexAMETHasone 4 MG TAB PO SCH (20:24)
[2022-08-03] MEDS: INSULIN -REGULAR HUMAN 50 UNIT/0.5 ML ML SQ SCH ×4 (07:30→21:00)
--- NOTE | 2022-08-03 08:11 | P.PN ---
Subjective Date of Service: 08/03/22 Primary Care Provider: Rock Chief Complaint: chf exacerbation Subjective: No new changes Review of Systems 10-point ROS is otherwise unremarkable Physical Examination - Vital Signs Temperature: 98.7 F Blood Pressure: 185/50 Pulse: 73 Respirations: 18 Pulse Ox (%): 98 - Physical Exam General: Alert, In no apparent distress HEENT: Atraumatic, PERRLA, EOMI Neck: Supple, JVD not distended Respiratory: Clear to auscultation bilaterally, Normal air movement Cardiovascular: Regular rate/rhythm, Normal S1 S2 Gastrointestinal: Normal bowel sounds, No tenderness Musculoskeletal: No tenderness Integumentary: No rashes Neurological: Normal speech, Normal tone, Normal affect Lymphatics: No axilla or inguinal lymphadenopathy Assessment And Plan - Current Problems (Diagnosis) (1) CHF exacerbation Current Visit: Yes Status: Acute Plan: will gently diuresis the patient with Bumex. Consult to Dr. Bhatia. Need to be careful and monitor the renal function. 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 Will recheck a head CT Be very careful with sedation. Consult to Dr. Gregory. (3) COPD (chronic obstructive pulmonary disease) Current Visit: No Status: Acute Plan: Patient lungs are atif. Will start him on PRN Levalbuterol. No need for steroids at this time 08/02 start the patient on a normal dosage of steroids. Qualifiers: COPD type: chronic bronchitis (4) Drug abuse Current Visit: No Status: Chronic Plan: chronic marijuana abuse. Will need to be careful with sedation (5) CKD stage 4 secondary to hypertension Current Visit: No Status: Chronic Plan: His creatine is actually improving. Will continue to monitor. If her worsens we can consult Dr. Zayas (6) HTN (hypertension) Current Visit: No Status: Chronic Plan: restart home catapress patch Qualifiers: Hypertension type: primary hypertension Discharge Plan: [facility] Plan to discharge in: 48 Hours - Code Status/Comfort Care Code Status Assessed: No Physician Review: Patient Assessed, Agree with Above Assessment and Plan Critical Care: No Time Spent Managing PTS Care (In Minutes): 20
[2022-08-03] MEDS ORDERED: Levofloxacin500mg IV 500 MG/100 ML BAG IV ONE (09:00)
[2022-08-03] MEDS ORDERED: CLONIDINE 0.2 MG/PATCH TD SCH (09:00)
[2022-08-03] MEDS: ACETAMINOPHEN 500 MG TAB PO PRN (10:43)
[2022-08-03] MEDS: BUMETANIDE 1 MG/4 ML VIAL IV SCH (10:44)
[2022-08-03] MEDS: dexAMETHasone 4 MG TAB PO SCH ×2 (10:46→21:13)
[2022-08-03] MEDS: HYDRALAZINE HCL 20 MG/ML VIAL IV PRN ×2 (14:12→21:14)
[2022-08-03] MEDS: ENOXAPARIN 30 MG/0.3 ML SQ SCH (18:00)
[2022-08-03] MEDS: IPRATROPIUM BROM 0.5MG/2.5ML NEB PRN (23:15)
[2022-08-03] MEDS: LEVALBUTEROL 0.63 MG/3 ML NEB NEB PRN (23:15)
[2022-08-04] MEDS: ACETAMINOPHEN 500 MG TAB PO PRN (04:46)
[2022-08-04] MEDS: HYDRALAZINE HCL 20 MG/ML VIAL IV PRN ×2 (04:49→22:44)
[2022-08-04 06:30] LABS: Absolute Lymphocytes (CBC) 0.9 K/uL (0.7-4.9); Hematocrit 29.8 % (39.6-49.0); Lymphocytes % 13.4 % (15.3-44.8); MCV 94.4 fL (80-100); MPV 7.5 fL (7.6-11.3); RBC Red Blood Cell Count 3.16 M/uL (4.33-5.43)
[2022-08-04 06:45] LABS: Albumin 2.7 g/dL (3.4-5.0); Bilirubin Total 0.6 mg/dL (0.2-1.0); Potassium 3.9 mEq/L (3.5-5.1); Protein, Total 6.1 g/dL (6.4-8.2)
[2022-08-04] MEDS: INSULIN -REGULAR HUMAN 50 UNIT/0.5 ML ML SQ SCH ×4 (07:30→20:20)
[2022-08-04] MEDS: BUMETANIDE 1 MG/4 ML VIAL IV SCH (09:37)
[2022-08-04] MEDS: Levofloxacin 250mg IV 250 MG/50 ML BAG IV SCH (09:38)
[2022-08-04] MEDS: dexAMETHasone 4 MG TAB PO SCH ×2 (09:38→20:19)
[2022-08-04] MEDS: HYDROMORPHONE HCL 0.5 MG/0.5 ML INJ IV PRN ×2 (09:38→22:43)
--- NOTE | 2022-08-04 11:59 | PN ---
Date of Progress Note: 08/03/2022 Mr. Singh was admitted to Dr. Wilkerson with combination of CHF and COPD exacerbation. He has a history of hypertension, diabetes, dyslipidemia, anxiety disorder. His last creatinine was 2.71. He is belinda ng diuresed. His pCO2 was 90, pH was 7.19, his last PO2 was 60. Last troponin was 122. Hemoglobin is 8.9. He is now saturating 100% on nasal cannula 2 L with facial BiPAP/CPAP. He is in sinus rhyth m. He remains hypertensive at 177/78, but feels better. He is presently on lovastatin, insulin, sidney roid, and Bumex. Nephrology is following. We will continue his present regimen for now. We will co odin to follow. CHANDAN/MODL Voice ID: [id number] Report ID: [id number]
[2022-08-04] MEDS: IPRATROPIUM BROM 0.5MG/2.5ML NEB PRN ×3 (12:44→21:05)
[2022-08-04] MEDS: ALBUTEROL 2.5 MG/3 ML NEB SOL NEB PRN ×2 (12:44→16:27)
--- NOTE | 2022-08-04 16:03 | P.DS ---
Admission Date: 08/01/22 Discharge Date: 08/04/22 Primary Care Provider: Rock Disposition: ROUTINE DISCHARGE Discharge Condition: GOOD Reason for Admission: chf exacerbation - Problems (1) CHF exacerbation Current Visit: Yes Status: Acute Qualifiers: Heart failure type: diastolic Qualified Code(s): I50.33 - Acute on chronic diastolic (congestive) heart failure (2) Delirium Current Visit: Yes Status: Acute (3) COPD (chronic obstructive pulmonary disease) Current Visit: No Status: Acute Qualifiers: COPD type: chronic bronchitis (4) Drug abuse Current Visit: No Status: Chronic (5) CKD stage 4 secondary to hypertension Current Visit: No Status: Chronic (6) HTN (hypertension) Current Visit: No Status: Chronic Qualifiers: Hypertension type: primary hypertension Brief History of Present Illness: 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 He has a history of copd and has had multiple admissions over the past few months. Was sent to [facility] 4 days ago. Was found on the floor. Evidently he recieved a haldol there when he got agitated. The patient came to the ER and was doing well. Was to be admitted with the diagnosis of CHF exacerbation. He became agitated and was given 2mg of haldol in the ER. Which was the reported dosage from the [facility]. The patient is unresponsive at the time. His brother and sister in law are at the bedside. Seems his son recently went to [place]. They have been smoking a lot of marijuana since then. Which would explain the multiple admissions for Copd exacerbation. His brother is upset with his care. He was taking off his oxygen and having confusion in [facility]. Hospital Course: Patient is here for cellulitis of the left lower leg. he had some hypoxia in house. Was seen by Dr. Demarco. The patient is doing better. Complained of some burning while a catheter was placed. Dr. Demarco will arrange for his cpap to be repaired/replaced. Will send him home on bactrim and get home health with alf Vital Signs/Physical Exam: Temp Pulse Resp BP Pulse Ox 98.5 F 80 18 182/96 H 94 08/04/22 11:52 08/04/22 11:52 08/04/22 11:52 08/04/22 11:52 08/04/22 11:52 General: Alert, In no apparent distress HEENT: Atraumatic, PERRLA, EOMI Neck: Supple, JVD not distended Respiratory: Clear to auscultation bilaterally, Normal air movement Cardiovascular: Regular rate/rhythm, Normal S1 S2 Gastrointestinal: Normal bowel sounds, No tenderness Musculoskeletal: No tenderness Integumentary: No rashes Neurological: Normal speech, Normal tone, Normal affect Lymphatics: No axilla or inguinal lymphadenopathy Laboratory Data at Discharge: WBC 6.70 thou/uL (4.3-10.9) 08/04/22 05:35 Hgb 10.2 g/dL (13.6-17.9) L 08/04/22 05:35 Hct 29.8 % (39.6-49.0) L 08/04/22 05:35 Plt Count 374 thou/uL (152-406) 08/04/22 05:35 Sodium 134 mEq/L (136-145) L 08/04/22 05:35 Potassium 3.9 mEq/L (3.5-5.1) 08/04/22 05:35 BUN 24 mg/dL (7-18) H 08/04/22 05:35 Creatinine 2.23 mg/dL (0.70-1.30) H 08/04/22 05:35 Glucose 123 mg/dL (74-106) H 08/04/22 05:35 Magnesium 1.8 mg/dL (1.6-2.4) 08/01/22 10:00 Total Bilirubin 0.6 mg/dL (0.2-1.0) 08/04/22 05:35 AST 28 U/L (15-37) 08/04/22 05:35 ALT 16 U/L (16-61) 08/04/22 05:35 Alkaline Phosphatase 76 U/L (45-117) 08/04/22 05:35 Home Medications: ALPRAZolam [Xanax*] 1 mg PO BEDTIME PRN PRN 08/02/22 Acetaminophen [Tylenol*] 650 mg PO Q6H PRN 08/02/22 Albuterol Sulfate [Proair Respiclick] 2 inh PO Q6HP PRN 08/02/22 Arformoterol Tartrate [Brovana] 1 amp NEB BID 08/02/22 Baclofen 10 mg PO TID 08/02/22 Benzonatate [Tessalon Perle*] 100 mg PO Q8HP PRN 08/02/22 Budesonide [Pulmicort Flexhaler] 1 puff IH BID 08/02/22 Bumetanide [Bumex*] 1 mg PO BID 08/02/22 Clobetasol Propionate [Clobex] 1 olga TOP BID 08/02/22 Clonidine HCl [Catapres*] 0.2 mg PO Q8HP PRN 08/02/22 Ergocalciferol (Vitamin D2) [Vitamin D 50,000 Unit Cap] 50,000 unit PO Q7D 08/02/22 Fluticasone [Flonase 50MCG Nasal Neche*] 2 spray BELKIS DAILY 08/02/22 Furosemide [Lasix*] 40 mg PO DAILY 08/02/22 Gabapentin 300 mg PO TID 08/02/22 Glipizide [Glipizide Xl] 2.5 mg PO BID 08/02/22 Haloperidol Lac [Haldol] 2 mg IM Q8HP PRN 08/02/22 Levothyroxine Sodium 150 mcg PO DAILY 08/02/22 Magnesium Oxide [Magnesium] 500 mg PO DAILY 08/02/22 NIFEdipine [Nifedipine ER] 30 mg PO DAILY 08/02/22 Pravastatin Sodium 40 mg PO DAILY 08/02/22 Tamsulosin [Flomax*] 0.4 mg PO BEDTIME 08/02/22 Tiotropium [Spiriva Handihaler*] 1 puff IH DAILY 08/02/22 Trazodone [Desyrel*] 50 mg PO BEDTIME 08/02/22 hydrOXYzine HCL [Atarax*] 25 mg PO Q8HP PRN 08/02/22 predniSONE [Prednisone*] 5 mg PO DAILY 08/02/22 Smz./Tmp. [Bactrim Ds 800 MG/160 MG] 1 tab PO BID 5 Days #10 tab 08/04/22 New Medications: Smz./Tmp. [Bactrim Ds 800 MG/160 MG] 1 tab PO BID 5 Days #10 tab Diet: ADA Activity: Ad precious Followup: Rola Banda FNP [facility] [ALLIED HEALTH PROFESSIONAL] - Physician Review: Patient Assessed, Agree with Above Assessment and Plan Time spent managing pt's care (in minutes): 30
--- NOTE | 2022-08-04 16:07 | P.PN ---
Subjective Date of Service: 08/04/22 Primary Care Provider: Rock Chief Complaint: chf exacerbation Subjective: New changes (patient had some hallucinations this morning. He was having these during [facility] the [facility]) Review of Systems 10-point ROS is otherwise unremarkable Neurological: Confusion Physical Examination - Vital Signs Temperature: 98.5 F Blood Pressure: 182/96 Pulse: 80 Respirations: 18 Pulse Ox (%): 94 - Physical Exam General: Alert, In no apparent distress HEENT: Atraumatic, PERRLA, EOMI Neck: Supple, JVD not distended Respiratory: Clear to auscultation bilaterally, Normal air movement Cardiovascular: Regular rate/rhythm, Normal S1 S2 Gastrointestinal: Normal bowel sounds, No tenderness Musculoskeletal: No tenderness Integumentary: No rashes Neurological: Normal speech, Normal tone, Normal affect Lymphatics: No axilla or inguinal lymphadenopathy Assessment And Plan - Current Problems (Diagnosis) (1) CHF exacerbation Current Visit: Yes Status: Acute Plan: will gently diuresis the patient with Bumex. Consult to Dr. Bhatia. Need to be careful and monitor the renal function. 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 Will recheck a head CT Be very careful with sedation. Consult to Dr. Gregory. 08/04 may be a sequila of his rodent exterminator thc usage. Will discuss with Dr. Gregory (3) COPD (chronic obstructive pulmonary disease) Current Visit: No Status: Acute Plan: Patient lungs are atif. Will start him on PRN Levalbuterol. No need for steroids at this time 08/02 start the patient on a normal dosage of steroids. Qualifiers: COPD type: chronic bronchitis (4) Drug abuse Current Visit: No Status: Chronic Plan: chronic marijuana abuse. Will need to be careful with sedation (5) CKD stage 4 secondary to hypertension Current Visit: No Status: Chronic Plan: His creatine is actually improving. Will continue to monitor. If her worsens we can consult Dr. Zayas (6) HTN (hypertension) Current Visit: No Status: Chronic Plan: restart home catapress patch Qualifiers: Hypertension type: primary hypertension Discharge Plan: Home Plan to discharge in: 24 Hours - Code Status/Comfort Care Code Status Assessed: No Physician Review: Patient Assessed, Agree with Above Assessment and Plan Critical Care: No Time Spent Managing PTS Care (In Minutes): 20
[2022-08-04] MEDS: ENOXAPARIN 30 MG/0.3 ML SQ SCH (16:16)
[2022-08-04] MEDS: LEVALBUTEROL 0.63 MG/3 ML NEB NEB PRN (21:05)
[2022-08-05] MEDS: HYDROMORPHONE HCL 0.5 MG/0.5 ML INJ IV PRN ×2 (04:13→20:38)
[2022-08-05] MEDS: HYDRALAZINE HCL 20 MG/ML VIAL IV PRN ×2 (04:18→09:21)
[2022-08-05 05:57] LABS: Absolute Lymphocytes (CBC) 1.2 K/uL (0.7-4.9); Hematocrit 33.2 % (39.6-49.0); Lymphocytes % 14.2 % (15.3-44.8); MCV 94.3 fL (80-100); MPV 7.3 fL (7.6-11.3); RBC Red Blood Cell Count 3.52 M/uL (4.33-5.43)
[2022-08-05 06:13] LABS: Bilirubin Total 0.7 mg/dL (0.2-1.0); Potassium 4.2 mEq/L (3.5-5.1); Protein, Total 6.6 g/dL (6.4-8.2)
[2022-08-05] MEDS: INSULIN -REGULAR HUMAN 50 UNIT/0.5 ML ML SQ SCH ×4 (07:30→21:00)
[2022-08-05] MEDS: LEVALBUTEROL 0.63 MG/3 ML NEB NEB PRN ×2 (08:20→19:50)
[2022-08-05] MEDS: IPRATROPIUM BROM 0.5MG/2.5ML NEB PRN ×3 (08:20→19:50)
[2022-08-05] MEDS: dexAMETHasone 4 MG TAB PO SCH ×2 (09:18→20:39)
[2022-08-05] MEDS: BUMETANIDE 1 MG/4 ML VIAL IV SCH (09:20)
[2022-08-05] MEDS: Levofloxacin 250mg IV 250 MG/50 ML BAG IV SCH (09:21)
[2022-08-05] MEDS ORDERED: NA CHLORIDE 0.9% 100 ML ONE (09:33)
--- NOTE | 2022-08-05 11:54 | P.PN ---
Subjective Date of Service: 08/05/22 Primary Care Provider: Rock Chief Complaint: chf exacerbation Subjective: No new changes Review of Systems 10-point ROS is otherwise unremarkable Physical Examination - Vital Signs Temperature: 98.1 F Blood Pressure: 177/74 Pulse: 77 Respirations: 16 Pulse Ox (%): 98 - Physical Exam General: Alert, In no apparent distress HEENT: Atraumatic, PERRLA, EOMI Neck: Supple, JVD not distended Respiratory: Clear to auscultation bilaterally, Normal air movement Cardiovascular: Regular rate/rhythm, Normal S1 S2 Gastrointestinal: Normal bowel sounds, No tenderness Musculoskeletal: No tenderness Integumentary: No rashes Neurological: Normal speech, Normal tone, Normal affect Lymphatics: No axilla or inguinal lymphadenopathy Assessment And Plan - Current Problems (Diagnosis) (1) CHF exacerbation Current Visit: Yes Status: Acute Plan: will gently diuresis the patient with Bumex. Consult to Dr. Bhatia. Need to be careful and monitor the renal function. 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 Will recheck a head CT Be very careful with sedation. Consult to Dr. Gregory. 08/[address] Gregory. Will start him on quetapine 50mg po at bedtime. May also consider some dementia medications. (3) COPD (chronic obstructive pulmonary disease) Current Visit: No Status: Acute Plan: Patient lungs are atif. Will start him on PRN Levalbuterol. No need for s teroids at this time 08/02 start the patient on a normal dosage of steroids. Qualifiers: COPD type: chronic bronchitis (4) Drug abuse Current Visit: No Status: Chronic Plan: chronic marijuana abuse. Will need to be careful with sedation (5) CKD stage 4 secondary to hypertension Current Visit: No Status: Chronic Plan: His creatine is actually improving. Will continue to monitor. If her worsens we can consult Dr. Zayas (6) HTN (hypertension) Current Visit: No Status: Chronic Plan: restart home catapress patch Qualifiers: Hypertension type: primary hypertension Discharge Plan: Home Plan to discharge in: 24 Hours - Code Status/Comfort Care Code Status Assessed: No Physician Review: Patient Assessed, Agree with Above Assessment and Plan Critical Care: No Time Spent Managing PTS Care (In Minutes): 20
[2022-08-05] MEDS: ALBUTEROL 2.5 MG/3 ML NEB SOL NEB PRN (14:20)
[2022-08-05] MEDS: ENOXAPARIN 30 MG/0.3 ML SQ SCH (17:22)
[2022-08-05] MEDS: QUETIAPINE 25 MG TAB PO SCH (20:39)
[2022-08-06] MEDS: ALBUTEROL 2.5 MG/3 ML NEB SOL NEB PRN (01:05)
[2022-08-06] MEDS: IPRATROPIUM BROM 0.5MG/2.5ML NEB PRN ×2 (01:05→10:45)
[2022-08-06] MEDS: HYDROMORPHONE HCL 0.5 MG/0.5 ML INJ IV PRN ×4 (02:05→21:43)
[2022-08-06] MEDS: HYDRALAZINE HCL 20 MG/ML VIAL IV PRN ×2 (05:39→20:21)
[2022-08-06 06:34] LABS: Hematocrit 34.8 % (39.6-49.0); Lymphocytes % 13.8 % (15.3-44.8); MCV 94.1 fL (80-100); MPV 7.5 fL (7.6-11.3)
[2022-08-06 06:47] LABS: Albumin 3.1 g/dL (3.4-5.0); Bilirubin Total 0.7 mg/dL (0.2-1.0); Potassium 3.8 mEq/L (3.5-5.1); Protein, Total 6.5 g/dL (6.4-8.2)
[2022-08-06] MEDS: INSULIN -REGULAR HUMAN 50 UNIT/0.5 ML ML SQ SCH ×4 (07:30→20:22)
--- NOTE | 2022-08-06 09:34 | P.PN ---
Subjective Date of Service: 08/06/22 Primary Care Provider: Rock Chief Complaint: chf exacerbation Subjective: No new changes Review of Systems 10-point ROS is otherwise unremarkable Physical Examination - Vital Signs Temperature: 97.7 F Blood Pressure: 143/83 Pulse: 76 Respirations: 18 Pulse Ox (%): 93 - Physical Exam General: Alert, In no apparent distress HEENT: Atraumatic, PERRLA, EOMI Neck: Supple, JVD not distended Respiratory: Clear to auscultation bilaterally, Normal air movement Cardiovascular: Regular rate/rhythm, Normal S1 S2 Gastrointestinal: Normal bowel sounds, No tenderness Musculoskeletal: No tenderness Integumentary: No rashes Neurological: Normal speech, Normal tone, Normal affect Lymphatics: No axilla or inguinal lymphadenopathy Assessment And Plan - Current Problems (Diagnosis) (1) CHF exacerbation Current Visit: Yes Status: Acute Plan: will gently diuresis the patient with Bumex. Consult to Dr. Bhatia. Need to be careful and monitor the renal function. Qualifiers: Heart failure type: diastolic Qualified Code(s): I50.33 - Acute on chronic diastolic (congestive) heart failure (2) Delirium Current Visit: Yes Status: Acute Plan: Most likely a combination of medications, hypoxia or emt intermediate marijuana abuse. Will recheck a head CT Be very careful with sedation. Consult to Dr. Gregory. 08/[address] Gregory. Will start him on quetapine 50mg po at bedtime. May also consider some dementia medications. (3) COPD (chronic obstructive pulmonary disease) Current Visit: No Status: Acute Plan: Patient lungs are atif. Will start him on PRN Levalbuterol. No need for s teroids at this time 08/02 start the patient on a normal dosage of steroids. Qualifiers: COPD type: chronic bronchitis (4) Drug abuse Current Visit: No Status: Chronic Plan: chronic marijuana abuse. Will need to be careful with sedation (5) CKD stage 4 secondary to hypertension Current Visit: No Status: Chronic Plan: His creatine is actually improving. Will continue to monitor. If her worsens we can consult Dr. Zayas (6) HTN (hypertension) Current Visit: No Status: Chronic Plan: restart home catapress patch Qualifiers: Hypertension type: primary hypertension Discharge Plan: Half-Way Plan to discharge in: 24 Hours - Code Status/Comfort Care Code Status Assessed: No Physician Review: Patient Assessed, Agree with Above Assessment and Plan Critical Care: No Time Spent Managing PTS Care (In Minutes): 20
[2022-08-06 09:53] LABS: Platelet Estimate ADEQ
[2022-08-06 09:54] LABS: Blood Morphology Comment NOT SEEN (NOT SEEN); Platelets, Giant OCCASSIONAL
[2022-08-06] MEDS: dexAMETHasone 4 MG TAB PO SCH ×2 (09:58→20:22)
[2022-08-06] MEDS: BUMETANIDE 1 MG/4 ML VIAL IV SCH (09:59)
[2022-08-06] MEDS: Levofloxacin 250mg IV 250 MG/50 ML BAG IV SCH (10:00)
[2022-08-06] MEDS: LEVALBUTEROL 0.63 MG/3 ML NEB NEB PRN (10:45)
[2022-08-06] MEDS: ENOXAPARIN 30 MG/0.3 ML SQ SCH (16:31)
[2022-08-06] MEDS: QUETIAPINE 25 MG TAB PO SCH (20:22)
[2022-08-07] MEDS: HYDROMORPHONE HCL 0.5 MG/0.5 ML INJ IV PRN ×2 (02:47→09:30)
[2022-08-07 04:54] VITALS: O2SAT 97
[2022-08-07] MEDS: INSULIN -REGULAR HUMAN 50 UNIT/0.5 ML ML SQ SCH ×2 (07:30→11:30)
--- NOTE | 2022-08-07 08:17 | P.PN ---
Subjective Date of Service: 08/07/22 Primary Care Provider: Rock Chief Complaint: chf exacerbation Subjective: No new changes Review of Systems 10-point ROS is otherwise unremarkable Physical Examination - Vital Signs Temperature: 97.9 F Blood Pressure: 142/70 Pulse: 66 Respirations: 16 Pulse Ox (%): 98 - Physical Exam General: Alert, In no apparent distress HEENT: Atraumatic, PERRLA, EOMI Neck: Supple, JVD not distended Respiratory: Clear to auscultation bilaterally, Normal air movement Cardiovascular: Regular rate/rhythm, Normal S1 S2 Gastrointestinal: Normal bowel sounds, No tenderness Musculoskeletal: No tenderness Integumentary: No rashes Neurological: Normal speech, Normal tone, Normal affect Lymphatics: No axilla or inguinal lymphadenopathy - Studies Microbiology Data (last 24 hrs): 08/01/22 12:00 Blood - Blood Aerobic Blood Culture - Final No growth in 5 days. 08/01/22 12:00 Blood - Blood Anaerobic Blood Culture - Final No growth in 5 days. 08/01/22 11:45 Blood - Blood Aerobic Blood Culture - Final No growth in 5 days. 08/01/22 11:45 Blood - Blood Anaerobic Blood Culture - Final No growth in 5 days. Assessment And Plan - Current Problems (Diagnosis) (1) CHF exacerbation Current Visit: Yes Status: Acute Plan: will gently diuresis the patient with Bumex. Consult to Dr. Bhatia. Need to be careful and monitor the renal function. 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 Will recheck a head CT Be very careful with sedation. Consult to Dr. Gregory. 08/07 stable on quetapine (3) COPD (chronic obstructive pulmonary disease) Current Visit: No Status: Acute Plan: Patient lungs are atif. Will start him on PRN Levalbuterol. No need for steroids at this time 08/02 start the patient on a normal dosage of steroids. Qualifiers: COPD type: chronic bronchitis (4) Drug abuse Current Visit: No Status: Chronic Plan: chronic marijuana abuse. Will need to be careful with sedation (5) CKD stage 4 secondary to hypertension Current Visit: No Status: Chronic Plan: His creatine is actually improving. Will continue to monitor. If her worsens we can consult Dr. Zayas (6) HTN (hypertension) Current Visit: No Status: Chronic Plan: restart home catapress patch Qualifiers: Hypertension type: primary hypertension Discharge Plan: Snf Plan to discharge in: 24 Hours - Code Status/Comfort Care Code Status Assessed: No Physician Review: Patient Assessed, Agree with Above Assessment and Plan Critical Care: No Time Spent Managing PTS Care (In Minutes): 20
[2022-08-07] MEDS: BUMETANIDE 1 MG/4 ML VIAL IV SCH (09:00)
[2022-08-07] MEDS: dexAMETHasone 4 MG TAB PO SCH (09:23)
[2022-08-07] MEDS: Levofloxacin 250mg IV 250 MG/50 ML BAG IV SCH (09:23)
[2022-08-07] MEDS: ACETAMINOPHEN 500 MG TAB PO PRN ×2 (09:23→14:28)
[2022-08-07 13:39] LABS: SARS-CoV-2 Antigen Rapid Res Negative (Negative)
[2022-08-07] MEDS: IPRATROPIUM BROM 0.5MG/2.5ML NEB PRN (14:00)
[2022-08-07] MEDS: ALBUTEROL 2.5 MG/3 ML NEB SOL NEB PRN (14:00)
[2022-08-07 17:02] VITALS: BP 154/80; TEMP 98
[2022-08-08] MEDS ORDERED: LEVOTHYROXINE SOD 0.075 MG TAB PO SCH (06:30)
--- NOTE | 2022-08-08 09:20 | P.DS ---
Admission Date: 08/01/22 Discharge Date: 08/07/22 Primary Care Provider: Rock Disposition: TRANSFER TO SNF - MEDICAL Discharge Condition: GOOD Reason for Admission: chf exacerbation - Problems (1) CHF exacerbation Status: Acute Qualifiers: Heart failure type: diastolic Qualified Code(s): I50.33 - Acute on chronic diastolic (congestive) heart failure (2) Delirium Status: Acute (3) COPD (chronic obstructive pulmonary disease) Status: Acute Qualifiers: COPD type: chronic bronchitis (4) Drug abuse Status: Chronic (5) CKD stage 4 secondary to hypertension Status: Chronic (6) HTN (hypertension) Status: Chronic Qualifiers: Hypertension type: primary hypertension Brief History of Present Illness: 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 He has a history of copd and has had multiple admissions over the past few months. Was sent to [facility] 4 days ago. Was found on the floor. Evidently he recieved a haldol there when he got agitated. The patient came to the ER and was doing well. Was to be admitted with the diagnosis of CHF exacerbation. He became agitated and was given 2mg of haldol in the ER. Which was the reported dosage from the [facility]. The patient is unresponsive at the time. His brother and sister in law are at the bedside. Seems his son recently went to [place]. They have been smoking a lot of marijuana since then. Which would explain the multiple admissions for Copd exacerbation. His brother is upset with his care. He was taking off his oxygen and having confusion in [facility]. Hospital Course: Patent admitted for confusion. He was found to be hypercapnic. so Respiratory failure. The patient was having hallucinations. May have been his difficulty with treatment at [facility]. We started him on quetiapine. His family wanted him placed in another facility. Took a few days for social service agency director to arrange this. Will send him to [facility]. Thank you for allowing me to take part in his care. Vital Signs/Physical Exam: Temp Pulse Resp BP Pulse Ox 98 F 68 20 154/80 H 98 08/07/22 16:00 08/07/22 16:00 08/07/22 16:00 08/07/22 16:00 08/07/22 16:00 General: Alert, In no apparent distress HEENT: Atraumatic, PERRLA, EOMI Neck: Supple, JVD not distended Respiratory: Clear to auscultation bilaterally, Normal air movement Cardiovascular: Regular rate/rhythm, Normal S1 S2 Gastrointestinal: Normal bowel sounds, No tenderness Musculoskeletal: No tenderness Integumentary: No rashes Neurological: Normal speech, Normal tone, Normal affect Lymphatics: No axilla or inguinal lymphadenopathy Laboratory Data at Discharge: WBC 7.30 thou/uL (4.3-10.9) 08/06/22 06:17 Hgb 11.7 g/dL (13.6-17.9) L 08/06/22 06:17 Hct 34.8 % (39.6-49.0) L 08/06/22 06:17 Plt Count 356 thou/uL (152-406) 08/06/22 06:17 Sodium 130 mEq/L (136-145) L 08/06/22 06:17 Potassium 3.8 mEq/L (3.5-5.1) 08/06/22 06:17 BUN 30 mg/dL (7-18) H 08/06/22 06:17 Creatinine 2.60 mg/dL (0.70-1.30) H 08/06/22 06:17 Glucose 140 mg/dL (74-106) H 08/06/22 06:17 Magnesium 1.8 mg/dL (1.6-2.4) 08/01/22 10:00 Total Bilirubin 0.7 mg/dL (0.2-1.0) 08/06/22 06:17 AST 34 U/L (15-37) 08/06/22 06:17 ALT 20 U/L (16-61) 08/06/22 06:17 Alkaline Phosphatase 75 U/L (45-117) 08/06/22 06:17 Home Medications: ALPRAZolam [Xanax*] 1 mg PO BEDTIME PRN PRN 08/02/22 Acetaminophen [Tylenol*] 650 mg PO Q6H PRN 08/02/22 Albuterol Sulfate [Proair Respiclick] 2 inh PO Q6HP PRN 08/02/22 Arformoterol Tartrate [Brovana] 1 amp NEB BID 08/02/22 Baclofen 10 mg PO TID 08/02/22 Benzonatate [Tessalon Perle*] 100 mg PO Q8HP PRN 08/02/22 Budesonide [Pulmicort Flexhaler] 1 puff IH BID 08/02/22 Bumetanide [Bumex*] 1 mg PO BID 08/02/22 Clobetasol Propionate [Clobex] 1 olga TOP BID 08/02/22 Clonidine HCl [Catapres*] 0.2 mg PO Q8HP PRN 08/02/22 Ergocalciferol (Vitamin D2) [Vitamin D 50,000 Unit Cap] 50,000 unit PO Q7D 08/02/22 Fluticasone [Flonase 50MCG Nasal Howard*] 2 spray BELKIS DAILY 08/02/22 Furosemide [Lasix*] 40 mg PO DAILY 08/02/22 Gabapentin 300 mg PO TID 08/02/22 Glipizide [Glipizide Xl] 2.5 mg PO BID 08/02/22 Haloperidol Lac [Haldol] 2 mg IM Q8HP PRN 08/02/22 Levothyroxine Sodium 150 mcg PO DAILY 08/02/22 Magnesium Oxide [Magnesium] 500 mg PO DAILY 08/02/22 NIFEdipine [Nifedipine ER] 30 mg PO DAILY 08/02/22 Pravastatin Sodium 40 mg PO DAILY 08/02/22 Tamsulosin [Flomax*] 0.4 mg PO BEDTIME 08/02/22 Tiotropium [Spiriva Handihaler*] 1 puff IH DAILY 08/02/22 Trazodone [Desyrel*] 50 mg PO BEDTIME 08/02/22 hydrOXYzine HCL [Atarax*] 25 mg PO Q8HP PRN 08/02/22 predniSONE [Prednisone*] 5 mg PO DAILY 08/02/22 Smz./Tmp. [Bactrim Ds 800 MG/160 MG] 1 tab PO BID 5 Days #10 tab 08/04/22 New Medications: Smz./Tmp. [Bactrim Ds 800 MG/160 MG] 1 tab PO BID 5 Days #10 tab Diet: ADA Activity: Ad precious Followup: Fred Bhatia MD [ACTIVE - CAN ADMIT] - Nico Gregory MD [ASSOCIATE-ACTIVE - CAN ADMIT] - Rola Banda FNP BC [ALLIED HEALTH PROFESSIONAL] - Time spent managing pt's care (in minutes): 30
== END 2022-08-07 17:53 | DRG 291 ==
LOC: ER 08:42 → ERHOLD 12:56 → 2ND 19:17
PROVIDERS: ADMIT Internal Medicine; ATTEND Internal Medicine
PROC: 5A09457 Assistance with Respiratory Ventilation, 24-96 Consecutive Hours, Continuous Positive Airway Pressure (ICD-10-PCS; principal; 2022-08-03)
PROC: 5A09457 Assistance with Respiratory Ventilation, 24-96 Consecutive Hours, Continuous Positive Airway Pressure (ICD-10-PCS; 2022-08-03)
DX: I13.0 Hypertensive heart and chronic kidney disease with heart failure and stage 1 through stage 4 chronic kidney disease, or unspecified chronic kidney disease (principal); I50.33 Acute on chronic diastolic (congestive) heart failure; J18.9 Pneumonia, unspecified organism; J96.92 Respiratory failure, unspecified with hypercapnia; G93.1 Anoxic brain damage, not elsewhere classified; J44.0 Chronic obstructive pulmonary disease with (acute) lower respiratory infection; F05 Delirium due to known physiological condition; N18.4 Chronic kidney disease, stage 4 (severe); J44.1 Chronic obstructive pulmonary disease with (acute) exacerbation; I24.8 Other forms of acute ischemic heart disease; E11.22 Type 2 diabetes mellitus with diabetic chronic kidney disease; D63.1 Anemia in chronic kidney disease; F41.9 Anxiety disorder, unspecified; E78.5 Hyperlipidemia, unspecified; F12.10 Cannabis abuse, uncomplicated; I48.91 Unspecified atrial fibrillation; R77.8 Other specified abnormalities of plasma proteins; Z79.84 Long term (current) use of oral hypoglycemic drugs; Z79.52 Long term (current) use of systemic steroids; Z87.891 Personal history of nicotine dependence; Z79.899 Other long term (current) drug therapy; Z79.890 Hormone replacement therapy; Z90.49 Acquired absence of other specified parts of digestive tract; W01.0XXA Fall on same level from slipping, tripping and stumbling without subsequent striking against object, initial encounter; Y93.89 Activity, other specified; Y92.10 Unspecified residential institution as the place of occurrence of the external cause
CPT/HCPCS: 36415; 70450; 71045; 72125; 80048; 80053; 80307; 81001; 82140; 82550; 82805; 82947; 83605; 83735; 83880; 84484; 85025; 87040; 87070; 87205; 87811; 93005; 94640; 94660; 94760; 96372; 96374; 97110; 97116; 97161; 99285; J0360; J1170; J1630; J1650; J1815; J7613; J7614; J7644; J8540

== ENCOUNTER 2022-12-14 15:57 | Inpatient (IN) | payer OTHER ==
[2022-12-14 16:32] LABS: Absolute Lymphocytes (CBC) 0.7 K/uL (0.7-4.9); Hematocrit 30.3 % (39.6-49.0); Lymphocytes % 8.7 % (15.3-44.8); MCV 97.4 fL (80-100); MPV 7.9 fL (7.6-11.3); Platelets 214 thou/uL (152-406); RBC Red Blood Cell Count 3.11 M/uL (4.33-5.43)
[2022-12-14 16:37] LABS: Protime INR 0.93
[2022-12-14 16:43] LABS: Albumin 2.8 g/dL (3.4-5.0); Bilirubin Total 0.3 mg/dL (0.2-1.0); Potassium 4.8 mEq/L (3.5-5.1); Protein, Total 6.2 g/dL (6.4-8.2)
--- OUTSIDE RECORDS SUMMARY | 2022-12-14 16:46 | XMS REPORT | Continuity of Care Document ---
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 23:23:24 l (finding) exertion Jeimy nn (finding) Active Problem 01/18/2019 [facility] COPD COPD Diagnosis Active 2011-03-01 Mem oria Active 15:59:00 l [facility] BACK PAIN BACK PAIN Diagnosis Active 2014-11-01 Memoria Active 11:06:00 l [facility] RIGHT RIGHT Diagnosis Active 2013-10-30 Mem oria SHOULDER SHOULDER 22:24:00 l PAIN PAIN Rol[place] Active [facility] SOLITARY SOLITARY Diagnosis Active 2015-08-02 Memoria PULMONARY PULMONARY 15:42:00 l NODULE NODULE [place] Active [facility] ENCOUNTER ENCOUNTER Diagnosis Active 2015-09-21 Memoria FOR FOR 08:30:00 l SCREENING SCREENING Herm [facility] FOR FOR MALIGNANT MALIGNANT NE NE Active [facility] LABS LABS Diagnosis Active 2015-09-28 Mem oria Active 07:49:00 l [facility] Rolando Acute Acute Problem Resolve 2012-2019-01-18 2019-01-18 Memoria exacerbati exacerbati d 2-18 23:23:24 23:23:24 l on of on of 00:00: Rolando chronic chronic 00 obstructiv obstructiv e airways e airways disease disease (disorder) (disorder) Resolved 02/18/2013 Problem 01/18/2019 Data migrated from [employer] on 07/31/14. Annika Singer [facility], [facility] Allergies, Adverse Reactions, Alerts Allergy Allergy Status Severity Reaction(s) Onset Inactive Treating Comm ents Source Name Type Date Date Clinician iodine DA Active MO HIVES ALL [facility] OVER 5-22 Clear 00:00: [place] 00 [facility] codeine DA Active MO RASH [facility] 5-22 Clear 00:00: [place] 00 [facility] NO KNOWN Drug Active Univers ALLERGIE Class ity of S [facility] iodine iodine Active Memoria l Rolando acetamin acetamin Active Memori a ophen-co ophen-co l deine deine Rolando codeine< codeine< Active Memori a sup>1</s sup>1</s l up> up> [place] Social History Social Habit Start Date Stop Date Quantity Comments Source History SDOH University o f Alcohol Frequency [facility] Branch History SDOH University o f Alcohol Std Drinks [facility] History SDIA University o f Alcohol Binge [place] [facility] History of tobacco Current smoker Un iversity of use [facility] Gender identity Universit y of [facility] Sexual orientation Univer sity of [facility] Alcohol intake 2022-11-27 2022-11-27 Ex-drinker University of 00:00:00 00:00:00 (finding) [facility] Alcohol Comment 2022-11-09 2022-11-09 reports no Universit y of 00:00:00 00:00:00 longer drinking; [facility] darshana brother has Branch leukemia & stopped Exposure to 2022-04-06 2022-04-16 Not sure [facility] SARS-CoV-2 (event) 00:00:00 09:57:00 [facility] History of Social 2022-03-08 2022-03-08 Univers ity of function 00:00:00 00:00:00 [facility] Tobacco use and 2021-09-27 2021-09-27 Smokeless Universit y of exposure 00:00:00 00:00:00 tobacco non-user [facility] Tobacco Comment 2021-09-27 2021-09-27 smoked 1 ppd age Uni versity of 00:00:00 00:00:00 [age], quit age [place] [facility] 64 Branch History SDOH 2020-04-04 2020-04-04 0 University o f Physical Activity 00:00:00 00:00:00 [place] [facility] DPW Branch History SDOH 2020-04-04 2020-04-04 99 University o f Physical Activity 00:00:00 00:00:00 [facility] MPS Branch History SDOH 2020-03-01 2020-03-01 5 University o f Financial 00:00:00 00:00:00 [place] [facility] History SDOH Food 2020-03-01 2020-03-01 1 Univers ity of Worry 00:00:00 00:00:00 [place] [facility] History SDOH Food 2020-03-01 2020-03-01 1 Univers ity of Scarcity 00:00:00 00:00:00 [place] [facility] History SDOH 2020-03-01 2020-03-01 2 University o f Transport Med 00:00:00 00:00:00 [place] [facility] History SDIA 2020-03-01 2020-03-01 2 University o f Transport Non-Med 00:00:00 00:00:00 [facility] Social History 2015-09-21 2015-09-21 [facility] 13:55:53 13:55:53 Sex [birth year] Universit y of 00:00:00 00:00:00 [facility] Smoking Status Start Date Stop Date Source Ex-smoker 2021-09-27 00:00:00 2021-09-27 00:00:00 [facility] Medications Ordered Filled Start Stop Current Ordering Indication Dosage Frequency Signature Comments Components Source Medication Medication Date Date Medication? Clinician (SIG) Name Name gabapentin 2022- Yes [id number] 100mg Take 1 Univers 100 mg 9-25 10-10 capsule by ity of capsule 00:00: 04:59 mouth in [place] 00 :00 the Medical morning Branch and 1 capsule at noon and 1 capsule in the evening. Do all this for 14 days. gabapentin 2022- Yes [id number] 100mg Take 1 Univers 100 mg 9-25 10-10 capsule by ity of capsule 00:00: 04:59 mouth in [place] 00 :00 the Medical morning Branch and 1 capsule at noon and 1 capsule in the evening. Do all this for 14 days. gabapentin 2022- Yes [id number] 100mg Take 1 Univers 100 mg 9-25 10-10 capsule by ity of capsule 00:00: 04:59 mouth in [place] 00 :00 the Medical morning Branch and 1 capsule at noon and 1 capsule in the evening. Do all this for 14 days. gabapentin 2022- Yes [id number] 100mg Take 1 Univers 100 mg 9-25 10-10 capsule by ity of capsule 00:00: 04:59 mouth in [place] 00 :00 the Medical morning Branch and 1 capsule at noon and 1 capsule in the evening. Do all this for 14 days. gabapentin 2022- Yes [id number] 100mg Take 1 Univers 100 mg 9-25 10-10 capsule by ity of capsule 00:00: 04:59 mouth in [place] 00 :00 the Medical morning Branch and 1 capsule at noon and 1 capsule in the evening. Do all this for 14 days. gabapentin 2022- Yes [id number] 100mg Take 1 Univers 100 mg 9-25 10-10 capsule by ity of capsule 00:00: 04:59 mouth in [place] 00 :00 the Medical morning Branch and 1 capsule at noon and 1 capsule in the evening. Do all this for 14 days. gabapentin 2022- Yes [id number] 100mg Take 1 Univers 100 mg 9-25 10-10 capsule by ity of capsule 00:00: 04:59 mouth in [place] 00 :00 the Medical morning Branch and 1 capsule at noon and 1 capsule in the evening. Do all this for 14 days. albuterol Yes [id number] 2{puff} Inhale 2 Univers 90 9-08 Puffs ity of mcg/actuati 00:00: every 6 [place] as on inhaler 00 (six) Medical hours as Branch needed for Wheezing or Shortness of Breath. albuterol Yes [id number] 2{puff} Inhale 2 Univers 90 9-08 Puffs ity of mcg/actuati 00:00: every 6 [place] as on inhaler 00 (six) Medical hours as Branch needed for Wheezing or Shortness of Breath. albuterol Yes [id number] 2{puff} Inhale 2 Univers 90 9-08 Puffs ity of mcg/actuati 00:00: every 6 [place] as on inhaler 00 (six) Medical hours as Branch needed for Wheezing or Shortness of Breath. albuterol Yes [id number] 2{puff} Inhale 2 Univers 90 9-08 Puffs ity of mcg/actuati 00:00: every 6 [place] as on inhaler 00 (six) Medical hours as Branch needed for Wheezing or Shortness of Breath. albuterol Yes [id number] 2{puff} Inhale 2 Univers 90 9-08 Puffs ity of mcg/actuati 00:00: every 6 [place] as on inhaler 00 (six) Medical hours as Branch needed for Wheezing or Shortness of Breath. albuterol Yes [id number] 2{puff} Inhale 2 Univers 90 9-08 Puffs ity of mcg/actuati 00:00: every 6 [place] as on inhaler 00 (six) Medical hours as Branch needed for Wheezing or Shortness of Breath. albuterol Yes [id number] 2{puff} Inhale 2 Univers 90 9-08 Puffs ity of mcg/actuati 00:00: every 6 [place] as on inhaler 00 (six) Medical hours as Branch needed for Wheezing or Shortness of Breath. albuterol Yes [id number] 2{puff} Inhale 2 Univers 90 9-08 Puffs ity of mcg/actuati 00:00: every 6 [place] as on inhaler 00 (six) Medical hours as Branch needed for Wheezing or Shortness of Breath. albuterol Yes [id number] 2{puff} Inhale 2 Univers 90 9-08 Puffs ity of mcg/actuati 00:00: every 6 [place] as on inhaler 00 (six) Medical hours as Branch needed for Wheezing or Shortness of Breath. albuterol Yes [id number] 2{puff} Inhale 2 Univers 90 9-08 Puffs ity of mcg/actuati 00:00: every 6 [place] as on inhaler 00 (six) Medical hours as Branch needed for Wheezing or Shortness of Breath. albuterol Yes [id number] 2{puff} Inhale 2 Univers 90 9-08 Puffs ity of mcg/actuati 00:00: every 6 [place] as on inhaler 00 (six) Medical hours as Branch needed for Wheezing or Shortness of Breath. albuterol Yes [id number] 2{puff} Inhale 2 Univers 90 9-08 Puffs ity of mcg/actuati 00:00: every 6 [place] as on inhaler 00 (six) Medical hours as Branch needed for Wheezing or Shortness of Breath. albuterol Yes [id number] 2{puff} Inhale 2 Univers 90 9-08 Puffs ity of mcg/actuati 00:00: every 6 [place] as on inhaler 00 (six) Medical hours as Branch needed for Wheezing or Shortness of Breath. albuterol Yes [id number] 2{puff} Inhale 2 Univers 90 9-08 Puffs ity of mcg/actuati 00:00: every 6 [place] as on inhaler 00 (six) Medical hours as Branch needed for Wheezing or Shortness of Breath. albuterol Yes [id number] 2{puff} Inhale 2 Univers 90 9-08 Puffs ity of mcg/actuati 00:00: every 6 [place] as on inhaler 00 (six) Medical hours as Branch needed for Wheezing or Shortness of Breath. albuterol Yes [id number] 2{puff} Inhale 2 Univers 90 9-08 Puffs ity of mcg/actuati 00:00: every 6 [place] as on inhaler 00 (six) Medical hours as Branch needed for Wheezing or Shortness of Breath. albuterol Yes [id number] 2{puff} Inhale 2 Univers 90 9-08 Puffs ity of mcg/actuati 00:00: every 6 [place] as on inhaler 00 (six) Medical hours as Branch needed for Wheezing or Shortness of Breath. albuterol Yes [id number] 2{puff} Inhale 2 Univers 90 9-08 Puffs ity of mcg/actuati 00:00: every 6 [place] as on inhaler 00 (six) Medical hours as Branch needed for Wheezing or Shortness of Breath. albuterol Yes [id number] 2{puff} Inhale 2 Univers 90 9-08 Puffs ity of mcg/actuati 00:00: every 6 [place] as on inhaler 00 (six) Medical hours as Branch needed for Wheezing or Shortness of Breath. albuterol Yes [id number] 2{puff} Inhale 2 Univers 90 9-08 Puffs ity of mcg/actuati 00:00: every 6 [place] as on inhaler 00 (six) Medical hours as Branch needed for Wheezing or Shortness of Breath. albuterol Yes [id number] 2{puff} Inhale 2 Univers 90 9-08 Puffs ity of mcg/actuati 00:00: every 6 [place] as on inhaler 00 (six) Medical hours as Branch needed for Wheezing or Shortness of Breath. albuterol Yes [id number] 2{puff} Inhale 2 Univers 90 9-08 Puffs ity of mcg/actuati 00:00: every 6 [place] as on inhaler 00 (six) Medical hours as Branch needed for Wheezing or Shortness of Breath. albuterol Yes [id number] 2{puff} Inhale 2 Univers 90 9-08 Puffs ity of mcg/actuati 00:00: every 6 [place] as on inhaler 00 (six) Medical hours as Branch needed for Wheezing or Shortness of Breath. albuterol Yes [id number] 2{puff} Inhale 2 Univers 90 9-08 Puffs ity of mcg/actuati 00:00: every 6 [place] as on inhaler 00 (six) Medical hours as Branch needed for Wheezing or Shortness of Breath. albuterol Yes [id number] 2{puff} Inhale 2 Univers 90 9-08 Puffs ity of mcg/actuati 00:00: every 6 [place] as on inhaler 00 (six) Medical hours as Branch needed for Wheezing or Shortness of Breath. albuterol Yes [id number] 2{puff} Inhale 2 Univers 90 9-08 Puffs ity of mcg/actuati 00:00: every 6 [place] as on inhaler 00 (six) Medical hours as Branch needed for Wheezing or Shortness of Breath. albuterol Yes [id number] 2{puff} Inhale 2 Univers 90 9-08 Puffs ity of mcg/actuati 00:00: every 6 [place] as on inhaler 00 (six) Medical hours as Branch needed for Wheezing or Shortness of Breath. albuterol Yes [id number] 2{puff} Inhale 2 Univers 90 9-08 Puffs ity of mcg/actuati 00:00: every 6 [place] as on inhaler 00 (six) Medical hours as Branch needed for Wheezing or Shortness of Breath. albuterol Yes [id number] 2{puff} Inhale 2 Univers 90 9-08 Puffs ity of mcg/actuati 00:00: every 6 [place] as on inhaler 00 (six) Medical hours as Branch needed for Wheezing or Shortness of Breath. albuterol Yes [id number] 2{puff} Inhale 2 Univers 90 9-08 Puffs ity of mcg/actuati 00:00: every 6 [place] as on inhaler 00 (six) Medical hours as Branch needed for Wheezing or Shortness of Breath. albuterol Yes [id number] 2{puff} Inhale 2 Univers 90 9-08 Puffs ity of mcg/actuati 00:00: every 6 [place] as on inhaler 00 (six) Medical hours as Branch needed for Wheezing or Shortness of Breath. oxymetazoli Yes 1{puff} Use 1 Puff Univers ne HCl 8-22 in each ity of (AFRIN 17:20: nostril [place] NASAL) 40 every Medical other day. Branch Patient takes afrin over the counter, takes every other day oxymetazoli 2022-0 Yes 1{puff} Use 1 Puff Univers ne HCl 8-22 in each ity of (AFRIN 17:20: nostril [place] NASAL) 40 every Medical other day. Branch Patient takes afrin over the counter, takes every other day oxymetazoli 2022-0 Yes 1{puff} Use 1 Puff Univers ne HCl 8-22 in each ity of (AFRIN 17:20: nostril [place] NASAL) 40 every Medical other day. Branch Patient takes afrin over the counter, takes every other day oxymetazoli 2022-0 Yes 1{puff} Use 1 Puff Univers ne HCl 8-22 in each ity of (AFRIN 17:20: nostril [place] NASAL) 40 every Medical other day. Branch Patient takes afrin over the counter, takes every other day oxymetazoli 2023-0 Yes 1{puff} Use 1 Puff Univers ne HCl 8-22 in each ity of (AFRIN 17:20: nostril [place] NASAL) 40 every Medical other day. Branch Patient takes afrin over the counter, takes every other day oxymetazoli 2023-0 Yes 1{puff} Use 1 Puff Univers ne HCl 8-22 in each ity of (AFRIN 17:20: nostril [place] NASAL) 40 every Medical other day. Branch Patient takes afrin over the counter, takes every other day oxymetazoli 2023-0 Yes 1{puff} Use 1 Puff Univers ne HCl 8-22 in each ity of (AFRIN 17:20: nostril [place] NASAL) 40 every Medical other day. Branch Patient takes afrin over the counter, takes every other day oxymetazoli 2023-0 Yes 1{puff} Use 1 Puff Univers ne HCl 8-22 in each ity of (AFRIN 17:20: nostril [place] NASAL) 40 every Medical other day. Branch Patient takes afrin over the counter, takes every other day oxymetazoli 2023-0 Yes 1{puff} Use 1 Puff Univers ne HCl 8-22 in each ity of (AFRIN 17:20: nostril [place] NASAL) 40 every Medical other day. Branch Patient takes afrin over the counter, takes every other day oxymetazoli 2023-0 Yes 1{puff} Use 1 Puff Univers ne HCl 8-22 in each ity of (AFRIN 17:20: nostril [place] NASAL) 40 every Medical other day. Branch Patient takes afrin over the counter, takes every other day oxymetazoli 2023-0 Yes 1{puff} Use 1 Puff Univers ne HCl 8-22 in each ity of (AFRIN 17:20: nostril [place] NASAL) 40 every Medical other day. Branch Patient takes afrin over the counter, takes every other day oxymetazoli 2023-0 Yes 1{puff} Use 1 Puff Univers ne HCl 8-22 in each ity of (AFRIN 17:20: nostril [place] NASAL) 40 every Medical other day. Branch Patient takes afrin over the counter, takes every other day oxymetazoli 2023-0 Yes 1{puff} Use 1 Puff Univers ne HCl 8-22 in each ity of (AFRIN 17:20: nostril [place] NASAL) 40 every Medical other day. Branch Patient takes afrin over the counter, takes every other day oxymetazoli 2023-0 Yes 1{puff} Use 1 Puff Univers ne HCl 8-22 in each ity of (AFRIN 17:20: nostril [place] NASAL) 40 every Medical other day. Branch Patient takes afrin over the counter, takes every other day oxymetazoli 2023-0 Yes 1{puff} Use 1 Puff Univers ne HCl 8-22 in each ity of (AFRIN 17:20: nostril [place] NASAL) 40 every Medical other day. Branch Patient takes afrin over the counter, takes every other day oxymetazoli 2023-0 Yes 1{puff} Use 1 Puff Univers ne HCl 8-22 in each ity of (AFRIN 17:20: nostril [place] NASAL) 40 every Medical other day. Branch Patient takes afrin over the counter, takes every other day oxymetazoli 2023-0 Yes 1{puff} Use 1 Puff Univers ne HCl 8-22 in each ity of (AFRIN 17:20: nostril [place] NASAL) 40 every Medical other day. Branch Patient takes afrin over the counter, takes every other day oxymetazoli 2023-0 Yes 1{puff} Use 1 Puff Univers ne HCl 8-22 in each ity of (AFRIN 17:20: nostril [place] NASAL) 40 every Medical other day. Branch Patient takes afrin over the counter, takes every other day oxymetazoli 2023-0 Yes 1{puff} Use 1 Puff Univers ne HCl 8-22 in each ity of (AFRIN 17:20: nostril [place] NASAL) 40 every Medical other day. Branch Patient takes afrin over the counter, takes every other day oxymetazoli 2023-0 Yes 1{puff} Use 1 Puff Univers ne HCl 8-22 in each ity of (AFRIN 17:20: nostril [place] NASAL) 40 every Medical other day. Branch Patient takes afrin over the counter, takes every other day oxymetazoli 2023-0 Yes 1{puff} Use 1 Puff Univers ne HCl 8-22 in each ity of (AFRIN 17:20: nostril [place] NASAL) 40 every Medical other day. Branch Patient takes afrin over the counter, takes every other day oxymetazoli 2023-0 Yes 1{puff} Use 1 Puff Univers ne HCl 8-22 in each ity of (AFRIN 17:20: nostril [place] NASAL) 40 every Medical other day. Branch Patient takes afrin over the counter, takes every other day oxymetazoli 2023-0 Yes 1{puff} Use 1 Puff Univers ne HCl 8-22 in each ity of (AFRIN 17:20: nostril [place] NASAL) 40 every Medical other day. Branch Patient takes afrin over the counter, takes every other day oxymetazoli 2023-0 Yes 1{puff} Use 1 Puff Univers ne HCl 8-22 in each ity of (AFRIN 17:20: nostril [place] NASAL) 40 every Medical other day. Branch Patient takes afrin over the counter, takes every other day oxymetazoli 2023-0 Yes 1{puff} Use 1 Puff Univers ne HCl 8-22 in each ity of (AFRIN 17:20: nostril [place] NASAL) 40 every Medical other day. Branch Patient takes afrin over the counter, takes every other day oxymetazoli 2023-0 Yes 1{puff} Use 1 Puff Univers ne HCl 8-22 in each ity of (AFRIN 17:20: nostril [place] NASAL) 40 every Medical other day. Branch Patient takes afrin over the counter, takes every other day oxymetazoli 2023-0 Yes 1{puff} Use 1 Puff Univers ne HCl 8-22 in each ity of (AFRIN 17:20: nostril [place] NASAL) 40 every Medical other day. Branch Patient takes afrin over the counter, takes every other day oxymetazoli 2023-0 Yes 1{puff} Use 1 Puff Univers ne HCl 8-22 in each ity of (AFRIN 17:20: nostril [place] NASAL) 40 every Medical other day. Branch Patient takes afrin over the counter, takes every other day oxymetazoli 2023-0 Yes 1{puff} Use 1 Puff Univers ne HCl 8-22 in each ity of (AFRIN 17:20: nostril [place] NASAL) 40 every Medical other day. Branch Patient takes afrin over the counter, takes every other day oxymetazoli 2022-0 Yes 1{puff} Use 1 Puff Univers ne HCl 8-22 in each ity of (AFRIN 17:20: nostril [place] NASAL) 40 every Medical other day. Branch Patient takes afrin over the counter, takes every other day oxymetazoli 2022-0 Yes 1{puff} Use 1 Puff Univers ne HCl 8-22 in each ity of (AFRIN 17:20: nostril [place] NASAL) 40 every Medical other day. Branch Patient takes afrin over the counter, takes every other day oxymetazoli 2022-0 Yes 1{puff} Use 1 Puff Univers ne HCl 8-22 in each ity of (AFRIN 17:20: nostril [place] NASAL) 40 every Medical other day. Branch Patient takes afrin over the counter, takes every other day oxymetazoli 2022-0 Yes 1{puff} Use 1 Puff Univers ne HCl 8-22 in each ity of (AFRIN 17:20: nostril [place] NASAL) 40 every Medical other day. Branch Patient takes afrin over the counter, takes every other day oxymetazoli 2022-0 Yes 1{puff} Use 1 Puff Univers ne HCl 8-22 in each ity of (AFRIN 17:20: nostril [place] NASAL) 40 every Medical other day. Branch Patient takes afrin over the counter, takes every other day oxymetazoli 2022-0 Yes 1{puff} Use 1 Puff Univers ne HCl 8-22 in each ity of (AFRIN 17:20: nostril [place] NASAL) 40 every Medical other day. Branch Patient takes afrin over the counter, takes every other day oxymetazoli 2023-0 Yes 1{puff} Use 1 Puff Univers ne HCl 8-22 in each ity of (AFRIN 17:20: nostril [place] NASAL) 40 every Medical other day. Branch Patient takes afrin over the counter, takes every other day oxymetazoli 3-0 Yes 1{puff} Use 1 Puff Univers ne HCl 8-22 in each ity of (AFRIN 17:20: nostril [place] NASAL) 40 every Medical other day. Branch Patient takes afrin over the counter, takes every other day oxymetazoli 2023-0 Yes 1{puff} Use 1 Puff Univers ne HCl 8-22 in each ity of (AFRIN 17:20: nostril [place] NASAL) 40 every Medical other day. Branch Patient takes afrin over the counter, takes every other day oxymetazoli 2023-0 Yes 1{puff} Use 1 Puff Univers ne HCl 8-22 in each ity of (AFRIN 17:20: nostril [place] NASAL) 40 every Medical other day. Branch Patient takes afrin over the counter, takes every other day oxymetazoli 2023-0 Yes 1{puff} Use 1 Puff Univers ne HCl 8-22 in each ity of (AFRIN 17:20: nostril [place] NASAL) 40 every Medical other day. Branch Patient takes afrin over the counter, takes every other day oxymetazoli 2023-0 Yes 1{puff} Use 1 Puff Univers ne HCl 8-22 in each ity of (AFRIN 17:20: nostril [place] NASAL) 40 every Medical other day. Branch Patient takes afrin over the counter, takes every other day oxymetazoli 2023-0 Yes 1{puff} Use 1 Puff Univers ne HCl 8-22 in each ity of (AFRIN 17:20: nostril [place] NASAL) 40 every Medical other day. Branch Patient takes afrin over the counter, takes every other day oxymetazoli 3-0 Yes 1{puff} Use 1 Puff Univers ne HCl 8-22 in each ity of (AFRIN 17:20: nostril [place] NASAL) 40 every Medical other day. Branch Patient takes afrin over the counter, takes every other day oxymetazoli 2023-0 Yes 1{puff} Use 1 Puff Univers ne HCl 8-22 in each ity of (AFRIN 17:20: nostril [place] NASAL) 40 every Medical other day. Branch Patient takes afrin over the counter, takes every other day HYDROcodone 2023-0 Yes [id number] 1{tbl} Take 1 Un renetta -acetaminop 8-22 tablet by ity of hen 10-325 00:00: mouth [place] mg tablet 00 every 6 Medical (six) Branch hours as needed for Pain (scale 7-10). Indication s: acute pain HYDROcodone 2023-0 Yes [id number] 1{tbl} Take 1 Un renetta -acetaminop 8-22 tablet by ity of hen 10-325 00:00: mouth [place] mg tablet 00 every 6 Medical (six) Branch hours as needed for Pain (scale 7-10). Indication s: acute pain HYDROcodone 2023-0 Yes [id number] 1{tbl} Take 1 Un renetta -acetaminop 8-22 tablet by ity of hen 10-325 00:00: mouth [place] mg tablet 00 every 6 Medical (six) Branch hours as needed for Pain (scale 7-10). Indication s: acute pain HYDROcodone 2023-0 Yes 4647 1{tbl} Take 1 Un renetta -acetaminop 8-22 tablet by ity of hen 10-325 00:00: mouth [place] mg tablet 00 every 6 Medical (six) Branch hours as needed for Pain (scale 7-10). Indication s: acute pain HYDROcodone 2023-0 Yes 4647 1{tbl} Take 1 Un renetta -acetaminop 8-22 tablet by ity of hen 10-325 00:00: mouth [place] mg tablet 00 every 6 Medical (six) Branch hours as needed for Pain (scale 7-10). Indication s: acute pain HYDROcodone 2023-0 Yes 4647 1{tbl} Take 1 Un renetta -acetaminop 8-22 tablet by ity of hen 10-325 00:00: mouth [place] mg tablet 00 every 6 Medical (six) Branch hours as needed for Pain (scale 7-10). Indication s: acute pain HYDROcodone 2023-0 Yes [id number] 1{tbl} Take 1 Un renetta -acetaminop 8-22 tablet by ity of hen 10-325 00:00: mouth [place] mg tablet 00 every 6 Medical (six) Branch hours as needed for Pain (scale 7-10). Indication s: acute pain HYDROcodone 2023-0 Yes 4647 1{tbl} Take 1 Un renetta -acetaminop 8-22 tablet by ity of hen 10-325 00:00: mouth [place] mg tablet 00 every 6 Medical (six) Branch hours as needed for Pain (scale 7-10). Indication s: acute pain HYDROcodone 2023-0 Yes 4647 1{tbl} Take 1 Un renetta -acetaminop 8-22 tablet by ity of hen 10-325 00:00: mouth [place] mg tablet 00 every 6 Medical (six) Branch hours as needed for Pain (scale 7-10). Indication s: acute pain HYDROcodone 2023-0 Yes 4647 1{tbl} Take 1 Un renetta -acetaminop 8-22 tablet by ity of hen 10-325 00:00: mouth [place] mg tablet 00 every 6 Medical (six) Branch hours as needed for Pain (scale 7-10). Indication s: acute pain HYDROcodone 2023-0 Yes 4647 1{tbl} Take 1 Un renetta -acetaminop 8-22 tablet by ity of hen 10-325 00:00: mouth [place] mg tablet 00 every 6 Medical (six) Branch hours as needed for Pain (scale 7-10). Indication s: acute pain HYDROcodone 2023-0 Yes 4647 1{tbl} Take 1 Un renetta -acetaminop 8-22 tablet by ity of hen 10-325 00:00: mouth [place] mg tablet 00 every 6 Medical (six) Branch hours as needed for Pain (scale 7-10). Indication s: acute pain HYDROcodone 2023-0 Yes 4647 1{tbl} Take 1 Un renetta -acetaminop 8-22 tablet by ity of hen 10-325 00:00: mouth [place] mg tablet 00 every 6 Medical (six) Branch hours as needed for Pain (scale 7-10). Indication s: acute pain HYDROcodone 2023-0 Yes 4647 1{tbl} Take 1 Un renetta -acetaminop 8-22 tablet by ity of hen 10-325 00:00: mouth [place] mg tablet 00 every 6 Medical (six) Branch hours as needed for Pain (scale 7-10). Indication s: acute pain HYDROcodone 2023-0 Yes 4647 1{tbl} Take 1 Un renetta -acetaminop 8-22 tablet by ity of hen 10-325 00:00: mouth [place] mg tablet 00 every 6 Medical (six) Branch hours as needed for Pain (scale 7-10). Indication s: acute pain HYDROcodone 2023-0 Yes 4647 1{tbl} Take 1 Un renetta -acetaminop 8-22 tablet by ity of hen 10-325 00:00: mouth [place] mg tablet 00 every 6 Medical (six) Branch hours as needed for Pain (scale 7-10). Indication s: acute pain HYDROcodone 2023-0 Yes 4647 1{tbl} Take 1 Un renetta -acetaminop 8-22 tablet by ity of hen 10-325 00:00: mouth [place] mg tablet 00 every 6 Medical (six) Branch hours as needed for Pain (scale 7-10). Indication s: acute pain HYDROcodone 2023-0 Yes 4647 1{tbl} Take 1 Un renetta -acetaminop 8-22 tablet by ity of hen 10-325 00:00: mouth [place] mg tablet 00 every 6 Medical (six) Branch hours as needed for Pain (scale 7-10). Indication s: acute pain HYDROcodone 2023-0 Yes 4647 1{tbl} Take 1 Un renetta -acetaminop 8-22 tablet by ity of hen 10-325 00:00: mouth [place] mg tablet 00 every 6 Medical (six) Branch hours as needed for Pain (scale 7-10). Indication s: acute pain HYDROcodone 2023-0 Yes 4647 1{tbl} Take 1 Un renetta -acetaminop 8-22 tablet by ity of hen 10-325 00:00: mouth [place] mg tablet 00 every 6 Medical (six) Branch hours as needed for Pain (scale 7-10). Indication s: acute pain HYDROcodone 2023-0 Yes 4647 1{tbl} Take 1 Un renetta -acetaminop 8-22 tablet by ity of hen 10-325 00:00: mouth [place] mg tablet 00 every 6 Medical (six) Branch hours as needed for Pain (scale 7-10). Indication s: acute pain HYDROcodone 2023-0 Yes 4647 1{tbl} Take 1 Un renetta -acetaminop 8-22 tablet by ity of hen 10-325 00:00: mouth [place] mg tablet 00 every 6 Medical (six) Branch hours as needed for Pain (scale 7-10). Indication s: acute pain HYDROcodone 2023-0 Yes 4647 1{tbl} Take 1 Un renetta -acetaminop 8-22 tablet by ity of hen 10-325 00:00: mouth [place] mg tablet 00 every 6 Medical (six) Branch hours as needed for Pain (scale 7-10). Indication s: acute pain HYDROcodone 2023-0 Yes 4647 1{tbl} Take 1 Un renetta -acetaminop 8-22 tablet by ity of hen 10-325 00:00: mouth [place] mg tablet 00 every 6 Medical (six) Branch hours as needed for Pain (scale 7-10). Indication s: acute pain HYDROcodone 2023-0 Yes 4647 1{tbl} Take 1 Un renetta -acetaminop 8-22 tablet by ity of hen 10-325 00:00: mouth [place] mg tablet 00 every 6 Medical (six) Branch hours as needed for Pain (scale 7-10). Indication s: acute pain HYDROcodone 2023-0 Yes 4647 1{tbl} Take 1 Un renetta -acetaminop 8-22 tablet by ity of hen 10-325 00:00: mouth [place] mg tablet 00 every 6 Medical (six) Branch hours as needed for Pain (scale 7-10). Indication s: acute pain HYDROcodone 2023-0 Yes 4647 1{tbl} Take 1 Un renetta -acetaminop 8-22 tablet by ity of hen 10-325 00:00: mouth [place] mg tablet 00 every 6 Medical (six) Branch hours as needed for Pain (scale 7-10). Indication s: acute pain HYDROcodone 3-0 Yes 4647 1{tbl} Take 1 Un renetta -acetaminop 8-22 tablet by ity of hen 10-325 00:00: mouth [place] mg tablet 00 every 6 Medical (six) Branch hours as needed for Pain (scale 7-10). Indication s: acute pain HYDROcodone 2023-0 Yes 4647 1{tbl} Take 1 Un renetta -acetaminop 8-22 tablet by ity of hen 10-325 00:00: mouth [place] mg tablet 00 every 6 Medical (six) Branch hours as needed for Pain (scale 7-10). Indication s: acute pain HYDROcodone 2023-0 Yes 4647 1{tbl} Take 1 Un renetta -acetaminop 8-22 tablet by ity of hen 10-325 00:00: mouth [place] mg tablet 00 every 6 Medical (six) Branch hours as needed for Pain (scale 7-10). Indication s: acute pain HYDROcodone 2023-0 Yes 4647 1{tbl} Take 1 Un renetta -acetaminop 8-22 tablet by ity of hen 10-325 00:00: mouth [place] mg tablet 00 every 6 Medical (six) Branch hours as needed for Pain (scale 7-10). Indication s: acute pain HYDROcodone 3-0 Yes 4647 1{tbl} Take 1 Un renetta -acetaminop 8-22 tablet by ity of hen 10-325 00:00: mouth [place] mg tablet 00 every 6 Medical (six) Branch hours as needed for Pain (scale 7-10). Indication s: acute pain HYDROcodone 3-0 Yes 4647 1{tbl} Take 1 Un renetta -acetaminop 8-22 tablet by ity of hen 10-325 00:00: mouth [place] mg tablet 00 every 6 Medical (six) Branch hours as needed for Pain (scale 7-10). Indication s: acute pain HYDROcodone 3-0 Yes 4647 1{tbl} Take 1 Un renetta -acetaminop 8-22 tablet by ity of hen 10-325 00:00: mouth [place] mg tablet 00 every 6 Medical (six) Branch hours as needed for Pain (scale 7-10). Indication s: acute pain HYDROcodone 3-0 Yes 4647 1{tbl} Take 1 Un renetta -acetaminop 8-22 tablet by ity of hen 10-325 00:00: mouth [place] mg tablet 00 every 6 Medical (six) Branch hours as needed for Pain (scale 7-10). Indication s: acute pain predniSONE 2023-0 2023- Yes [id number] 20mg Take 1 Univers 20 mg 8-23 10-28 tablet by ity of tablet 00:00: 04:59 mouth in [place] 00 :00 the Medical morning Branch for 5 days. predniSONE 2023-0 2023- Yes [id number] 20mg Take 1 Univers 20 mg 8-22 -28 tablet by ity of tablet 00:00: 04:59 mouth in [place] 00 :00 the Medical morning Branch for 5 days. bumetanide 2022-0 Yes .5mg 0.5 mg, Univ ers (BUMEX) 8-21 Oral, ity of tablet 0.5 22:00: QAM+PM, [place] 00 First dose Medical (after Branch last modificati on) on [facility] 10/22/22 at 1700, Until Discontinu ed, Routine fluticasone 2022-0 Yes 1{spray 1 [place], Univers propionate 10-22 } Nasal, ity of 50 14:00: DAILY, [place] mcg/actuati 00 First dose Me dical on nasal on [facility] spray 1 10/22/22 at [place] 0900, Until Discontinu ed, Routine tamsulosin 2022-0 Yes .4mg 0.4 mg, Univ ers (FLOMAX) 10-22 Oral, ity of capsule 0.4 14:00: DAILY, [place] 00 First dose Medical on [facility] 10/22/22 at 0900, Until Discontinu ed, Routine spironolact 2022-0 Yes 12.5mg 12.5 mg, Univers one 10-22 Oral, ity of (ALDACTONE) 14:00: DAILY, [place] tablet 12.5 00 First dose Me dical mg on [facility] 10/22/22 at 0900, Until Discontinu ed, Routine acetaZOLAMI 0 Yes 250mg 250 mg, Un renetta DE (DIAMOX) 10-22 Oral, ity of tablet 250 14:00: DAILY, [place] mg 00 First dose Medical on [facility] 10/22/22 at 0900, Until Discontinu ed, Routine bumetanide 2022-0 2023- No .5mg 0.5 mg, Uni vers (BUMEX) 10-22 Oral, ity of tablet 0.5 14:00: 18:00 DAILY, [place] mg 00 :48 First dose Medical on [facility] 10/22/22 at 0900, Until Discontinu ed, Routine levothyroxi 0 Yes 150ug 150 mcg, U nivers ne 10-22 Oral, ity of (SYNTHROID) 11:00: QAM-0600, [place] tablet 150 00 First dose Med ical mcg on [facility] 10/22/22 at 0600, Until Discontinu ed, Routine pravastatin 2022-0 Yes 40mg 40 mg, Univ ers (PRAVACHOL) 10-22 Oral, QHS, it y of tablet 40 02:00: [place] 00 on [facility] 10/21/22 at Branch 2100, Until Discontinu ed, Routine traZODone 0 Yes 50mg 50 mg, Univer s (DESYREL) 10-22 Oral, QHS, ity of tablet 50 02:00: [place] 00 on [facility] 10/21/22 at Branch 2100, Until Discontinu ed, Routine mirtazapine 0 Yes 7.5mg 7.5 mg, Un renetta (REMERON) 10-22 Oral, QHS, ity of tablet 7.5 02:00: First dose [place] mg 00 on [facility] 10/21/22 at Branch 2100, Until Discontinu ed, Routine NIFEdipine 0 Yes 30mg 30 mg, Unive rs ER tablet 10-22 Oral, ity of 30 mg 01:00: DAILY, [place] 00 First dose Medical on [facility] 10/21/22 at 2000, Until Discontinu ed, Routine budesonide- 0 Yes 2{puff} 2 Puff, Univers formoteroL 10-22 Inhalation ity of (SYMBICORT) 01:00: , BID, [place] 160-4.5 00 First dose Medica l mcg/actuati on [facility] on inhaler 10/21/22 at 2 Puff 1999, Until Discontinu ed, Routine cloNIDine Yes .2mg 0.2 mg, Unive rs (CATAPRES) 10-22 Oral, ity of tablet 0.2 00:58: TIDPRN, [place] mg 42 Starting Medical on [facility] 10/21/22 at 1958, Until Discontinu ed, Routine, IF bp IS >150/90 predniSONE 2022-0 2022- No 20mg 20 mg, Univ ers (DELTASONE) 10-21 Oral, ity of tablet 20 19:30: 13:53 DAILY, 3 [place] mg 00 :00 doses, Medical First dose Branch on [place] 10/21/22 at 1430, Last dose on Sat10/23/22 at 0900, Routine Sliding 2022-0 Yes Subcutaneo Univ ers Scale 10-21 us, TID ity of Insulin - 17:00: MEALS+HS, [place] Lispro 00 First dose Medical (HumaLOG) on [facility] 10/21/22 at 1200, Until Discontinu ed, Routine dextrose 2023-0 Yes 250mL 250 mL, IV Un renetta 10% (D10W) 8-20 Infusion, ity of bolus 16:31: PRN - SEE [place] infusion 25 INSTRUCTIO Medic al 250 mL NS, Branch Administer over 60 Minutes, Other, If blood glucose is < or = 70 mg/dL and patient is unable to swallow or has mental status changes, Starting on [place] 10/21/22 at 1131
If blood glucose is < or = 70 mg/dL and patient is unable to swallow or has mental status changes (Give glucagon order if patient needs fluid restrictio n): IF IV access available: Dextrose 10%. 1. 125 mL (? bag) of D10W IV infusion - equivalent to 12.5 g dextrose 2. Blood glucose - draw blood glucose 15 minutes after D10W Administra tion. 3. If blood glucose is < 80 mg/dL, repeat.
glucagon 0 Yes 1mg 1 mg, Univers (GLUCAGEN 8-20 Intramuscu ity of DIAGNOSTIC 16:31: lar, PRN, [place] KIT) 23 Starting Medical injection 1 on [place] Branch mg 10/21/22 at 1131, Until Discontinu ed, MARTHA, Blood Glucose < or = 70 mg/dL and patient is NPO, unable to swallow or has mental changes. HYDROcodone 2022-0 Yes 1{tbl} 1 tablet, Univers -acetaminop 8-20 Oral, ity of hen (NORCO) 00:45: Q6HPRN, [place] 10-325 mg 10 Starting Medica l tablet 1 on [facility] Branch tablet 10/20/22 at 1945, Until Discontinu ed, Routine, Pain (scale 7-10) traMADoL 2022-0 Yes 50mg 50 mg, Univers (ULTRAM) 8- Oral, ity of tablet 50 20:55: Q6HPRN, [place] mg 29 Starting Medical on [facility] Branch 10/20/22 at 1555, Until Discontinu ed, Routine, Pain (scale 4-6) NaCl 0.9% 2022-0 202- No 500mL at 999 Univ ers (NS) bolus 10-20 08-19 mL/hr, 500 it y of infusion 20:15: 20:45 mL, IV [place] 500 mL 00 :00 Piggyback, Medical ONCE, 1 Branch dose, On Sat10/20/22 at 1515, STAT cefTRIAXone 2022- Yes 1000mg 1,000 mg, Univers (ROCEPHIN) 10-20 08-26 IV ity of 1,000 mg in 05:30: 05:29 Piggyback, [place] NaCl 0.9% 00 :00 Q24H ABX, Medic al (NS) 100 mL 7 doses, [facility] MINI-BAG First dose on Sat10/20/22 at 0030, Last dose on Sat10/26/22 at 0030, Administer over 30 Minutes, 100 mL
Reas on for Anti-Infec tive: Documented Infection< br>Documen todd Infection Site: Respirator y
Durat ion of Therapy: 7 days heparin Yes 5000U 5,000 Univers (porcine) 8-19 Units, ity of injection 01:00: Subcutaneo [place] 5,000 Units 00 us, Q12H, Med ical First dose Branch on Sat10/19/22 at 2000, Until Discontinu ed, Routine Sliding 2022- No Subcutaneo Uni vers Scale 10-19 08-20 us, Q6H, ity of Insulin - 17:00: 16:33 First dose [place] Lispro 00 :06 on Sat Medical (HumaLOG) 10/19/22 at [facility] 1200, Until Discontinu ed, Routine fentaNYL PF 2022- No 25ug/h 25-200 U nivers (SUBLIMAZE) 10-19 08-20 mcg/hr ity o f STD 2,500 15:59: 00:50 (2.5-20 [place] mcg in NaCl 18 :02 mL/hr), IV Me dical 0.9% (NS) Infusion, Bran h 250 mL TITRATE, infusion CPOT/Pain RTU Scale Goals Determined by Provider, Starting on Sat10/19/22 at 1059
In itiate infusion at 25 mcg/hr. Titrate by 25 mcg/hr every 1 minute to 15 minutes to identified goal pain and/or sedation scores. Maximum dose = 200 mcg/hr. If goal not maintained at maximum allowed dose, contact prescriber .
cyanocobala 2022- No 1000ug 1,000 mcg, Univers min (DODEX) 10-19 Intramuscu i ty of injection 15:45: 15:19 lar, ONCE, [place] 1,000 mcg 00 :00 1 dose, On [facility] Fri Branch 10/19/22 at 1045, Routine budesonide 2022- No .5mg 0.5 mg, Uni vers (PULMICORT 10-19 Inhalation it y of RESPULE) 15:00: 19:21 , BID, [place] nebulizer 00 :17 First dose Medi christa solution on Fri Branch 0.5 mg 10/19/22 at 1000, Until Discontinu ed, Routine ipratropium Yes 3mL 3 mL, Unive rs -albuteroL 10-19 Inhalation ity of (DUONEB) 14:56: , QIDPRN, [place] 0.5 mg-3 39 Starting Medical mg(2.5 mg on Fri Branch base)/3 mL 10/19/22 at nebulizer 0956, solution 3 Until mL Discontinu ed, Routine, Wheezing rocuronium 2022- No 50mg 50 mg, IV U nivers (ZEMURON) 10-19 Push, ity of injection 14:00: 13:06 ONCE, 1 [place] 50 mg 00 :00 dose, On Medical Fri Branch 10/19/22 at 0900, Routine
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
solar field installation crew member approving Restricted medication : ANNA MARIE BETHEA propofoL IV 2022- No 5ug/kg/ 5-50 Un renetta infusion 10-19 min mcg/kg/min ity of 12:40: 00:50 ?82.6 kg [place] 36 :02 (2.478-24. Medical 78 mL/hr, Branch rounded to 2.48-24.78 mL/hr), IV Infusion, TITRATE, Sedation-R ASS score (0 to -1), Starting on Sat10/19/22 at 0740
In itiate infusion at 5 mcg/kg/min and titrate by 5 mcg/kg/min every 30 seconds to 10 minutes to goal sedation score. Maximum dose = 50 mcg/kg/min . If goal not maintained at maximum allowed dose, contact prescriber . &nbs p;Tubing and unused portions of vials should be discarded after 12 hours.
succinylcho 2022-0 2022- No 120mg 120 mg, IV Univers line 10-19 Push, ity of (QUELICIN) 12:00: 11:45 ONCE, 1 [place] injection 00 :00 dose, On Medica l 120 mg [facility] 10/19/22 at 0700, STAT etomidate 2022-0 2022- No 24mg 24 mg, Unive rs (AMIDATE) 10-19 Slow IV ity of injection 11:45: 11:45 Push, [place] 24 mg 00 :00 ONCE, 1 Medical dose, On Branch Sat10/19/22 at 0645, STAT magnesium 2022-0 2022- No 2g 2 g, IV Univ ers sulfate in 10-19 Piggyback, it y of water 2 10:00: 09:39 Administer [place] gram/50 mL 00 :00 over 60 Medica l (4 %) Minutes, Branch infusion 2 ONCE, 1 g dose, On Sat10/19/22 at 0500, Routine bumetanide 2022-0 2022- No 1.25mg 1.25 mg, Univers (BUMEX) 10-19 Slow IV ity of injection 09:30: 09:26 [place], [place] 1.25 mg 00 :00 ONCE, 1 Medical dose, On Branch Sat10/19/22 at 0430, STAT predniSONE 2023-0 Yes 40mg Take 2 Unive rs 20 mg 8-09 tablets by ity of tablet 00:00: mouth in [place] 00 the Medical morning. Branch predniSONE 2023-0 Yes 40mg Take 2 Unive rs 20 mg 8-09 tablets by ity of tablet 00:00: mouth in [place] 00 the Medical morning. Branch predniSONE 2023-0 Yes 40mg Take 2 Unive rs 20 mg 8-09 tablets by ity of tablet 00:00: mouth in [place] 00 the Medical morning. Branch acetaZOLAMI 2022- Yes [id number] 250mg Take 1 Univers DE 250 mg 10-10 tablet by ity of tablet 00:00: 04:59 mouth in [place] 00 :00 the [facility] for 30 days. spironolact 2022- Yes [id number] 12.5mg Take 0.5 Univers one 25 mg 10-10 tablets by ity of tablet 00:00: 04:59 mouth in [place] 00 :00 the [facility] for 30 days. acetaZOLAMI 2022- Yes [id number] 250mg Take 1 Univers DE 250 mg 10-10 tablet by ity of tablet 00:00: 04:59 mouth in [place] 00 :00 the [facility] for 30 days. spironolact 2022- Yes [id number] 12.5mg Take 0.5 Univers one 25 mg 10-10 tablets by ity of tablet 00:00: 04:59 mouth in [place] 00 :00 the [facility] for 30 days. acetaZOLAMI 2022- Yes [id number] 250mg Take 1 Univers DE 250 mg 10-10 tablet by ity of tablet 00:00: 04:59 mouth in [place] 00 :00 the [facility] for 30 days. spironolact 2022- Yes [id number] 12.5mg Take 0.5 Univers one 25 mg 10-10 tablets by ity of tablet 00:00: 04:59 mouth in [place] 00 :00 the [facility] for 30 days. acetaZOLAMI 2022- Yes [id number] 250mg Take 1 Univers DE 250 mg 10-10 tablet by ity of tablet 00:00: 04:59 mouth in [place] 00 :00 the [facility] for 30 days. spironolact 2022- Yes [id number] 12.5mg Take 0.5 Univers one 25 mg 10-10 tablets by ity of tablet 00:00: 04:59 mouth in [place] 00 :00 the [facility] for 30 days. acetaZOLAMI 2022- Yes [id number] 250mg Take 1 Univers DE 250 mg 10-10 tablet by ity of tablet 00:00: 04:59 mouth in [place] 00 :00 the [facility] morning [place] for 30 days. spironolact 2022- Yes [id number] 12.5mg Take 0.5 Univers one 25 mg 10-10 tablets by ity of tablet 00:00: 04:59 mouth in [place] 00 :00 the [facility] morning [place] for 30 days. acetaZOLAMI 2022- Yes [id number] 250mg Take 1 Univers DE 250 mg 10-10 tablet by ity of tablet 00:00: 04:59 mouth in [place] 00 :00 the [facility] for 30 days. spironolact 2022- Yes [id number] 12.5mg Take 0.5 Univers one 25 mg 10-10 tablets by ity of tablet 00:00: 04:59 mouth in [place] 00 :00 the [facility] for 30 days. acetaZOLAMI 2022- Yes [id number] 250mg Take 1 Univers DE 250 mg 10-10 tablet by ity of tablet 00:00: 04:59 mouth in [place] 00 :00 the [facility] for 30 days. spironolact 2022- Yes [id number] 12.5mg Take 0.5 Univers one 25 mg 10-10 tablets by ity of tablet 00:00: 04:59 mouth in [place] 00 :00 the [facility] for 30 days. acetaZOLAMI 2022- Yes [id number] 250mg Take 1 Univers DE 250 mg 10-10 tablet by ity of tablet 00:00: 04:59 mouth in [place] 00 :00 the [facility] for 30 days. spironolact 2022- Yes [id number] 12.5mg Take 0.5 Univers one 25 mg 10-10 tablets by ity of tablet 00:00: 04:59 mouth in [place] 00 :00 the [facility] for 30 days. acetaZOLAMI 2022- Yes [id number] 250mg Take 1 Univers DE 250 mg 10-10 tablet by ity of tablet 00:00: 04:59 mouth in [place] 00 :00 the [facility] for 30 days. spironolact 2022- Yes [id number] 12.5mg Take 0.5 Univers one 25 mg 10-10 tablets by ity of tablet 00:00: 04:59 mouth in [place] 00 :00 the [facility] morning [place] for 30 days. acetaZOLAMI 2022- Yes [id number] 250mg Take 1 Univers DE 250 mg 10-10 tablet by ity of tablet 00:00: 04:59 mouth in [place] 00 :00 the [facility] for 30 days. spironolact 2022- Yes [id number] 12.5mg Take 0.5 Univers one 25 mg 10-10 tablets by ity of tablet 00:00: 04:59 mouth in [place] 00 :00 the [facility] for 30 days. acetaZOLAMI 2022- Yes [id number] 250mg Take 1 Univers [place] 250 mg 10-10 tablet by ity of tablet 00:00: 04:59 mouth in [place] 00 :00 the [facility] for 30 days. spironolact 2022- Yes [id number] 12.5mg Take 0.5 Univers one 25 mg 10-10 tablets by ity of tablet 00:00: 04:59 mouth in [place] 00 :00 the [facility] for 30 days. acetaZOLAMI 2022- Yes [id number] 250mg Take 1 Univers DE 250 mg 10-10 tablet by ity of tablet 00:00: 04:59 mouth in [place] 00 :00 the [facility] for 30 days. spironolact 2022- Yes [id number] 12.5mg Take 0.5 Univers one 25 mg 10-10 tablets by ity of tablet 00:00: 04:59 mouth in [place] 00 :00 the [facility] for 30 days. acetaZOLAMI 2022- Yes [id number] 250mg Take 1 Univers [place] 250 mg 10-10 tablet by ity of tablet 00:00: 04:59 mouth in [place] 00 :00 the [facility] for 30 days. spironolact 2022- Yes [id number] 12.5mg Take 0.5 Univers one 25 mg 10-10 tablets by ity of tablet 00:00: 04:59 mouth in [place] 00 :00 the Medical morning Branch for 30 days. acetaZOLAMI 0 2022- Yes [id number] 250mg Take 1 Univers [place] 250 mg 10-10 tablet by ity of tablet 00:00: 04:59 mouth in [place] 00 :00 the Medical morning Branch for 30 days. spironolact 2022-0 2022- Yes [id number] 12.5mg Take 0.5 Univers one 25 mg 10-10 tablets by ity of tablet 00:00: 04:59 mouth in [place] 00 :00 the Medical morning Branch for 30 days. predniSONE 2022-0 2022- No 40mg Take 2 Univ ers 20 mg 10-10-22 tablets by ity of tablet 00:00: 00:00 mouth in [place] 00 :00 the Medical morning. [place] oxymetazoli Yes 1{puff} Use 1 Puff Univers ne HCl 8-08 in each ity of (AFRIN 18:56: nostril [place] NASAL) 27 every Medical other day. Branch Patient takes afrin over the counter, takes every other day oxymetazoli Yes 1{puff} Use 1 Puff Univers ne HCl 8-08 in each ity of (AFRIN 18:56: nostril [place] NASAL) 27 every Medical other day. [place] Patient takes afrin over the counter, takes every other day oxymetazoli 0 Yes 1{puff} Use 1 Puff Univers ne HCl 8-08 in each ity of (AFRIN 18:56: nostril [place] NASAL) 27 every Medical other day. [place] Patient takes afrin over the counter, takes every other day tamsulosin 0 Yes .4mg 0.4 mg, Univ ers (FLOMAX) 8-08 Oral, QHS, ity o f capsule 0.4 02:00: First dose [place] mg 00 (after Medical last Branch modificati on) on Sat10/08/22 at 2100, Until Discontinu ed, Routine hydrOXYzine 2022-0 Yes [id number] 25mg Take 1 Univers 25 mg 8-08 tablet by ity of tablet 00:00: mouth [place] 00 every 12 Medical (twelve) Branch hours as needed for Anxiety or Itching. baclofen 5 2022-0 Yes [id number] 5mg Take 1 U nivers mg tablet 8-08 tablet by ity o f 00:00: mouth 3 [place] 00 (three) Medical times Branch daily as needed (Muscle spasms). hydrOXYzine 2023-0 Yes [id number] 25mg Take 1 Univers 25 mg 8-08 tablet by ity of tablet 00:00: mouth [place] 00 every 12 Medical (twelve) Branch hours as needed for Anxiety or Itching. baclofen 5 3-0 Yes [id number] 5mg Take 1 U nivers mg tablet 8-08 tablet by ity o f 00:00: mouth 3 [place] 00 (three) Medical times Branch daily as needed (Muscle spasms). hydrOXYzine 3-0 Yes [id number] 25mg Take 1 Univers 25 mg 8-08 tablet by ity of tablet 00:00: mouth [place] 00 every 12 Medical (twelve) Branch hours as needed for Anxiety or Itching. baclofen 5 3-0 Yes [id number] 5mg Take 1 U nivers mg tablet 8-08 tablet by ity o f 00:00: mouth 3 [place] 00 (three) Medical times Branch daily as needed (Muscle spasms). hydrOXYzine 3-0 Yes [id number] 25mg Take 1 Univers 25 mg 8-08 tablet by ity of tablet 00:00: mouth [place] 00 every 12 Medical (twelve) Branch hours as needed for Anxiety or Itching. baclofen 5 3-0 Yes [id number] 5mg Take 1 U nivers mg tablet 8-08 tablet by ity o f 00:00: mouth 3 [place] 00 (three) Medical times Branch daily as needed (Muscle spasms). hydrOXYzine 2023-0 Yes [id number] 25mg Take 1 Univers 25 mg 8-08 tablet by ity of tablet 00:00: mouth [place] 00 every 12 Medical (twelve) Branch hours as needed for Anxiety or Itching. baclofen 5 3-0 Yes [id number] 5mg Take 1 U nivers mg tablet 8-08 tablet by ity o f 00:00: mouth 3 [place] 00 (three) Medical times Branch daily as needed (Muscle spasms). hydrOXYzine 2023-0 Yes [id number] 25mg Take 1 Univers 25 mg 8-08 tablet by ity of tablet 00:00: mouth [place] 00 every 12 Medical (twelve) Branch hours as needed for Anxiety or Itching. baclofen 5 3-0 Yes [id number] 5mg Take 1 U nivers mg tablet 8-08 tablet by ity o f 00:00: mouth 3 [place] 00 (three) Medical times Branch daily as needed (Muscle spasms). hydrOXYzine 2023-0 Yes [id number] 25mg Take 1 [facility] 25 mg 8-08 tablet by ity of tablet 00:00: mouth [place] 00 every 12 Medical (twelve) Branch hours as needed for Anxiety or Itching. baclofen 5 2022-0 Yes [id number] 5mg Take 1 U nivers mg tablet 8-08 tablet by ity o f 00:00: mouth 3 [place] 00 (three) Medical times Branch daily as needed (Muscle spasms). hydrOXYzine 2023-0 Yes [id number] 25mg Take 1 [facility] 25 mg 8-08 tablet by ity of tablet 00:00: mouth [place] 00 every 12 Medical (twelve) Branch hours as needed for Anxiety or Itching. baclofen 5 2022-0 Yes [id number] 5mg Take 1 U nivers mg tablet 8-08 tablet by ity o f 00:00: mouth 3 [place] 00 (three) Medical times Branch daily as needed (Muscle spasms). hydrOXYzine 3-0 Yes [id number] 25mg Take 1 [facility] 25 mg 8-08 tablet by ity of tablet 00:00: mouth [place] 00 every 12 Medical (twelve) Branch hours as needed for Anxiety or Itching. baclofen 5 3-0 Yes [id number] 5mg Take 1 U nivers mg tablet 8-08 tablet by ity o f 00:00: mouth 3 [place] 00 (three) Medical times Branch daily as needed (Muscle spasms). hydrOXYzine 2023-0 Yes [id number] 25mg Take 1 [facility] 25 mg 8-08 tablet by ity of tablet 00:00: mouth [place] 00 every 12 Medical (twelve) Branch hours as needed for Anxiety or Itching. baclofen 5 3-0 Yes [id number] 5mg Take 1 [facility] nivers mg tablet 8-08 tablet by ity o f 00:00: mouth 3 [place] 00 (three) Medical times Branch daily as needed (Muscle spasms). hydrOXYzine 2023-0 Yes [id number] 25mg Take 1 [facility] 25 mg 8-08 tablet by ity of tablet 00:00: mouth [place] 00 every 12 Medical (twelve) Branch hours as needed for Anxiety or Itching. baclofen 5 3-0 Yes [id number] 5mg Take 1 U nivers mg tablet 8-08 tablet by ity o f 00:00: mouth 3 [place] 00 (three) Medical times Branch daily as needed (Muscle spasms). hydrOXYzine 2023-0 Yes [id number] 25mg Take 1 [facility] 25 mg 8-08 tablet by ity of tablet 00:00: mouth [place] 00 every 12 Medical (twelve) Branch hours as needed for Anxiety or Itching. baclofen 5 3-0 Yes [id number] 5mg Take 1 [facility] nivers mg tablet 8-08 tablet by ity o f 00:00: mouth 3 [place] 00 (three) Medical times Branch daily as needed (Muscle spasms). hydrOXYzine 2023-0 Yes [id number] 25mg Take 1 [facility] 25 mg 8-08 tablet by ity of tablet 00:00: mouth [place] 00 every 12 Medical (twelve) Branch hours as needed for Anxiety or Itching. baclofen 5 3-0 Yes [id number] 5mg Take 1 [facility] nivers mg tablet 8-08 tablet by ity o f 00:00: mouth 3 [place] 00 (three) Medical times Branch daily as needed (Muscle spasms). hydrOXYzine 3-0 Yes [id number] 25mg Take 1 [facility] 25 mg 8-08 tablet by ity of tablet 00:00: mouth [place] 00 every 12 Medical (twelve) Branch hours as needed for Anxiety or Itching. baclofen 5 3-0 Yes [id number] 5mg Take 1 [facility] nivers mg tablet 8-08 tablet by ity o f 00:00: mouth 3 [place] 00 (three) Medical times Branch daily as needed (Muscle spasms). hydrOXYzine 2023-0 Yes [id number] 25mg Take 1 [facility] 25 mg 8-08 tablet by ity of tablet 00:00: mouth [place] 00 every 12 Medical (twelve) Branch hours as needed for Anxiety or Itching. baclofen 5 3-0 Yes [id number] 5mg Take 1 [facility] nivers mg tablet 8-08 tablet by ity o f 00:00: mouth 3 [place] 00 (three) Medical times Branch daily as needed (Muscle spasms). hydrOXYzine 2023-0 Yes [id number] 25mg Take 1 [facility] 25 mg 8-08 tablet by ity of tablet 00:00: mouth [place] 00 every 12 Medical (twelve) Branch hours as needed for Anxiety or Itching. baclofen 5 3-0 Yes [id number] 5mg Take 1 [facility] nivers mg tablet 8-08 tablet by ity o f 00:00: mouth 3 [place] 00 (three) Medical times Branch daily as needed (Muscle spasms). hydrOXYzine 3-0 Yes [id number] 25mg Take 1 [facility] 25 mg 8-08 tablet by ity of tablet 00:00: mouth [place] 00 every 12 Medical (twelve) Branch hours as needed for Anxiety or Itching. baclofen 5 3-0 Yes [id number] 5mg Take 1 [facility] mg tablet 8-08 tablet by ity o f 00:00: mouth 3 [place] 00 (three) Medical times Branch daily as needed (Muscle spasms). hydrOXYzine 3-0 Yes [id number] 25mg Take 1 [facility] 25 mg 8-08 tablet by ity of tablet 00:00: mouth [place] 00 every 12 Medical (twelve) Branch hours as needed for Anxiety or Itching. baclofen 5 2022-0 Yes [id number] 5mg Take 1 [facility] nivers mg tablet 8-08 tablet by ity o f 00:00: mouth 3 [place] 00 (three) Medical times Branch daily as needed (Muscle spasms). hydrOXYzine 3-0 Yes [id number] 25mg Take 1 [facility] 25 mg 8-08 tablet by ity of tablet 00:00: mouth [place] 00 every 12 Medical (twelve) Branch hours as needed for Anxiety or Itching. baclofen 5 3-0 Yes [id number] 5mg Take 1 [facility] n[facility] mg tablet 8-08 tablet by ity o f 00:00: mouth 3 [place] 00 (three) Medical times Branch daily as needed (Muscle spasms). hydrOXYzine 2023-0 Yes [id number] 25mg Take 1 [facility] 25 mg 8-08 tablet by ity of tablet 00:00: mouth [place] 00 every 12 Medical (twelve) Branch hours as needed for Anxiety or Itching. baclofen 5 3-0 Yes [id number] 5mg Take 1 [facility] n[facility] mg tablet 8-08 tablet by ity o f 00:00: mouth 3 [place] 00 (three) Medical times Branch daily as needed (Muscle spasms). hydrOXYzine 3-0 Yes [id number] 25mg Take 1 [facility] 25 mg 8-08 tablet by ity of tablet 00:00: mouth [place] 00 every 12 Medical (twelve) Branch hours as needed for Anxiety or Itching. baclofen 5 3-0 Yes [id number] 5mg Take 1 [facility] nivers mg tablet 8-08 tablet by ity o f 00:00: mouth 3 [place] 00 (three) Medical times Branch daily as needed (Muscle spasms). hydrOXYzine 3-0 Yes [id number] 25mg Take 1 [facility] 25 mg 8-08 tablet by ity of tablet 00:00: mouth [place] 00 every 12 Medical (twelve) Branch hours as needed for Anxiety or Itching. baclofen 5 2022-0 Yes [id number] 5mg Take 1 [facility] mg tablet 8-08 tablet by ity o f 00:00: mouth 3 [place] 00 (three) Medical times Branch daily as needed (Muscle spasms). hydrOXYzine 3-0 Yes [id number] 25mg Take 1 [facility] 25 mg 8-08 tablet by ity of tablet 00:00: mouth [place] 00 every 12 Medical (twelve) Branch hours as needed for Anxiety or Itching. baclofen 5 2022-0 Yes [id number] 5mg Take 1 [facility] nivers mg tablet 8-08 tablet by ity o f 00:00: mouth 3 [place] 00 (three) Medical times Branch daily as needed (Muscle spasms). hydrOXYzine 3-0 Yes [id number] 25mg Take 1 [facility] 25 mg 8-08 tablet by ity of tablet 00:00: mouth [place] 00 every 12 Medical (twelve) Branch hours as needed for Anxiety or Itching. baclofen 5 3-0 Yes [id number] 5mg Take 1 [facility] n[facility] mg tablet 8-08 tablet by ity o f 00:00: mouth 3 [place] 00 (three) Medical times Branch daily as needed (Muscle spasms). hydrOXYzine 2023-0 Yes [id number] 25mg Take 1 [facility] 25 mg 8-08 tablet by ity of tablet 00:00: mouth [place] 00 every 12 Medical (twelve) Branch hours as needed for Anxiety or Itching. baclofen 5 3-0 Yes [id number] 5mg Take 1 [facility] nivers mg tablet 8-08 tablet by ity o f 00:00: mouth 3 [place] 00 (three) Medical times Branch daily as needed (Muscle spasms). hydrOXYzine 2023-0 Yes [id number] 25mg Take 1 [facility] 25 mg 8-08 tablet by ity of tablet 00:00: mouth [place] 00 every 12 Medical (twelve) Branch hours as needed for Anxiety or Itching. baclofen 5 3-0 Yes [id number] 5mg Take 1 [facility] nivers mg tablet 8-08 tablet by ity o f 00:00: mouth 3 [place] 00 (three) Medical times Branch daily as needed (Muscle spasms). hydrOXYzine 2023-0 Yes [id number] 25mg Take 1 [facility] 25 mg 8-08 tablet by ity of tablet 00:00: mouth [place] 00 every 12 Medical (twelve) Branch hours as needed for Anxiety or Itching. baclofen 5 3-0 Yes [id number] 5mg Take 1 [facility] n[facility] mg tablet 8-08 tablet by ity o f 00:00: mouth 3 [place] 00 (three) Medical times Branch daily as needed (Muscle spasms). hydrOXYzine 2023-0 Yes [id number] 25mg Take 1 [facility] 25 mg 8-08 tablet by ity of tablet 00:00: mouth [place] 00 every 12 Medical (twelve) Branch hours as needed for Anxiety or Itching. baclofen 5 3-0 Yes [id number] 5mg Take 1 [facility] nivers mg tablet 8-08 tablet by ity o f 00:00: mouth 3 [place] 00 (three) Medical times Branch daily as needed (Muscle spasms). hydrOXYzine 2023-0 Yes [id number] 25mg Take 1 [facility] 25 mg 8-08 tablet by ity of tablet 00:00: mouth [place] 00 every 12 Medical (twelve) Branch hours as needed for Anxiety or Itching. baclofen 5 3-0 Yes [id number] 5mg Take 1 [facility] n[facility] mg tablet 8-08 tablet by ity o f 00:00: mouth 3 [place] 00 (three) Medical times Branch daily as needed (Muscle spasms). hydrOXYzine 2023-0 Yes [id number] 25mg Take 1 [facility] 25 mg 8-08 tablet by ity of tablet 00:00: mouth [place] 00 every 12 Medical (twelve) Branch hours as needed for Anxiety or Itching. baclofen 5 2023-0 Yes [id number] 5mg Take 1 [facility] nivers mg tablet 8-08 tablet by ity o f 00:00: mouth 3 [place] 00 (three) Medical times Branch daily as needed (Muscle spasms). hydrOXYzine 2023-0 Yes [id number] 25mg Take 1 [facility] 25 mg 8-08 tablet by ity of tablet 00:00: mouth [place] 00 every 12 Medical (twelve) Branch hours as needed for Anxiety or Itching. baclofen 5 3-0 Yes [id number] 5mg Take 1 [facility] nivers mg tablet 8-08 tablet by ity o f 00:00: mouth 3 [place] 00 (three) Medical times Branch daily as needed (Muscle spasms). hydrOXYzine 3-0 Yes [id number] 25mg Take 1 [facility] 25 mg 8-08 tablet by ity of tablet 00:00: mouth [place] 00 every 12 Medical (twelve) Branch hours as needed for Anxiety or Itching. baclofen 5 3-0 Yes [id number] 5mg Take 1 [facility] nivers mg tablet 8-08 tablet by ity o f 00:00: mouth 3 [place] 00 (three) Medical times Branch daily as needed (Muscle spasms). hydrOXYzine 3-0 Yes [id number] 25mg Take 1 [facility] 25 mg 8-08 tablet by ity of tablet 00:00: mouth [place] 00 every 12 Medical (twelve) Branch hours as needed for Anxiety or Itching. baclofen 5 3-0 Yes [id number] 5mg Take 1 U nivers mg tablet 8-08 tablet by ity o f 00:00: mouth 3 [place] 00 (three) Medical times Branch daily as needed (Muscle spasms). hydrOXYzine 3-0 Yes [id number] 25mg Take 1 [facility] 25 mg 8-08 tablet by ity of tablet 00:00: mouth [place] 00 every 12 Medical (twelve) Branch hours as needed for Anxiety or Itching. baclofen 5 3-0 Yes [id number] 5mg Take 1 U nivers mg tablet 8-08 tablet by ity o f 00:00: mouth 3 [place] 00 (three) Medical times Branch daily as needed (Muscle spasms). hydrOXYzine 2023-0 Yes [id number] 25mg Take 1 [facility] 25 mg 8-08 tablet by ity of tablet 00:00: mouth [place] 00 every 12 Medical (twelve) Branch hours as needed for Anxiety or Itching. baclofen 5 3-0 Yes [id number] 5mg Take 1 U nivers mg tablet 8-08 tablet by ity o f 00:00: mouth 3 (three) Medical times Branch daily as needed (Muscle spasms). hydrOXYzine 2022-0 Yes [id number] 25mg Take 1 [facility] 25 mg 8-08 tablet by ity of tablet 00:00: mouth [place] 00 every 12 Medical (twelve) Branch hours as needed for Anxiety or Itching. baclofen 5 2022-0 Yes [id number] 5mg Take 1 U nivers mg tablet 8-08 tablet by ity o f 00:00: mouth 3 00 (three) Medical times Branch daily as needed (Muscle spasms). hydrOXYzine 2022-0 Yes [id number] 25mg Take 1 [facility] 25 mg 8-08 tablet by ity of tablet 00:00: mouth [place] 00 every 12 Medical (twelve) Branch hours as needed for Anxiety or Itching. baclofen 5 2022-0 Yes [id number] 5mg Take 1 U nivers mg tablet 8-08 tablet by ity o f 00:00: mouth (three) Medical times Branch daily as needed (Muscle spasms). hydrOXYzine 2022-0 Yes [id number] 25mg Take 1 [facility] 25 mg 8-08 tablet by ity of tablet 00:00: mouth [place] 00 every 12 Medical (twelve) Branch hours as needed for Anxiety or Itching. baclofen 5 2022-0 Yes [id number] 5mg Take 1 U nivers mg tablet 8-08 tablet by ity o f 00:00: mouth 3 (three) Medical times Branch daily as needed (Muscle spasms). hydrOXYzine 2022-0 Yes [id number] 25mg Take 1 [facility] 25 mg 8-08 tablet by ity of tablet 00:00: mouth [place] 00 every 12 Medical (twelve) Branch hours as needed for Anxiety or Itching. baclofen 5 2022-0 Yes [id number] 5mg Take 1 U nivers mg tablet 8-08 tablet by ity o f 00:00: mouth 3 00 (three) Medical times Branch daily as needed (Muscle spasms). bumetanide 3-0 2023- Yes [id number] .5mg Take 1 [facility] 0.5 mg 8-08 09-08 tablet by ity of tablet 00:00: 04:59 mouth in [place] 00 :00 the Medical morning Branch for 30 days. bumetanide 2022-0 2022- Yes [id number] .5mg Take 1 [facility] 0.5 mg 8-10 10-08 tablet by ity of tablet 00:00: 04:59 mouth in [place] 00 :00 [facility] for 30 days. bumetanide 2022-0 2022- Yes [id number] .5mg Take 1 [facility] 0.5 mg 8- 09-08 tablet by ity of tablet 00:00: 04:59 mouth in [place] 00 :00 [facility] for 30 days. bumetanide 2022-0 2022- Yes [id number] .5mg Take 1 [facility] 0.5 mg 8-10 10-08 tablet by ity of tablet 00:00: 04:59 mouth in [place] 00 :00 [facility] for 30 days. bumetanide 2022-0 2022- Yes [id number] .5mg Take 1 [facility] 0.5 mg 8-10 10-08 tablet by ity of tablet 00:00: 04:59 mouth in [place] 00 :00 [facility] for 30 days. bumetanide 2022-0 2022- Yes [id number] .5mg Take 1 [facility] 0.5 mg 8-08 tablet by ity of tablet 00:00: 04:59 mouth in [place] 00 :00 [facility] for 30 days. bumetanide 0 2022- Yes [id number] .5mg Take 1 [facility] 0.5 mg 8-10 10-08 tablet by ity of tablet 00:00: 04:59 mouth in [place] 00 :00 [facility] for 30 days. hydrOXYzine 0 Yes 25mg 25 mg, Univ ers (ATARAX) 8 Oral, ity of tablet 25 23:15: [id number], [place] mg 00 Starting Medical on Sat [place] 10/08/22 at 1815, Until Discontinu ed, Anxiety, Itching baclofen 2022-0 Yes 5mg 5 mg, Univers (LIORESAL) 8 Oral, ity of tablet 5 mg 23:15: TIDPRN, [place] 00 Starting Medical on Sat [place] 10/08/22 at 1815, Until Discontinu ed, Routine, Muscle spasms ipratropium 2023-0 Yes 3mL 3 mL, Unive rs -albuteroL 10-08 Inhalation ity of (DUONEB) 23:00: , Q6H, [place] 0.5 mg-3 00 First dose Medic al mg(2.5 mg on Sat base)/3 mL 10/08/22 at nebulizer 1800, solution 3 Until mL Discontinu ed, Routine predniSONE 0 2022- Yes 40mg 40 mg, Univ ers (DELTASONE) 10-0812 Oral, ity of tablet 40 22:45: 13:59 DAILY, 5 [place] mg 00 :00 doses, Medical First dose Branch on Sat10/08/22 at 1745, Last dose on Sat10/12/22 at 0900, Routine Sliding Yes Subcutaneo [facility] ers Scale 10-08 us, TID ity of Insulin - 22:00: MEALS+HS, [place] Lispro 00 First dose Medical (HumaLOG) on Sat [place] 10/08/22 at 1700, Until Discontinu ed, Routine glucagon Yes 1mg 1 mg, Univers (GLUCAGEN 10-08 Intramuscu ity of DIAGNOSTIC 19:58: lar, PRN, [place] KIT) 40 Starting Medical injection 1 on Sat mg 10/08/22 at 1458, Until Discontinu ed, MARTHA, Blood Glucose < or = 70 mg/dL and patient is NPO, unable to swallow or has mental changes. dextrose 50 Yes 25mL 25 mL, [facility] ers % in water 10-08 Slow IV ity of (D50W) 19:58: Push, PRN, [place] injection 40 Starting Medica l 25 mL on [facility] 10/08/22 at 1458, Until Discontinu ed, MARTHA, Blood Glucose < or = 70 mg/dL and patient is NPO, unable to swallow or has mental status changes. bumetanide 2022- No .5mg 0.5 mg, Uni vers (BUMEX) 10-08 Oral, ity of tablet 0.5 14:00: 14:25 DAILY, [place] mg 00 :10 First dose Medical (after Branch last modificati on) on Sat10/08/22 at 0900, Until Discontinu ed, Routine azithromyci 2022- No 500mg 500 mg, U nivers n 10-07 08- Oral, ity of (ZITHROMAX) 23:00: 22:27 DAILY, 1 [place] tablet 500 00 :00 dose, Medical mg First dose Branch on [place] 10/07/22 at 1800, MARTHA
Re ason for Anti-Infec tive: Empiric Therapy for Suspected Infection< br>Empiric Therapy Site: Respirator y
Durat ion of therapy: 72 hours pravastatin Yes 40mg 40 mg, Univ ers (PRAVACHOL) 10-07 Oral, QHS, it y of tablet 40 02:00: First dose [place] mg 00 on [facility] 10/06/22 at Branch 2100, Until Discontinu ed, Routine mirtazapine Yes 7.5mg 7.5 mg, Un renetta (REMERON) 10-07 Oral, QHS, ity of tablet 7.5 02:00: First dose [place] mg 00 on [facility] 10/06/22 at Branch 2100, Until Discontinu ed, Routine traZODone 2022- No 50mg 50 mg, Unive rs (DESYREL) 10-07 08-07 Oral, QHS, ity of tablet 50 02:00: 22:41 First dose [place] mg 00 :01 on [facility] 10/06/22 at Branch 2100, Until Discontinu ed, Routine furosemide 2022- No 20mg 20 mg, IV U nivers (LASIX) 10-07- Push, ity of injection 01:00: 14:08 Q12H, [place] 20 mg 00 :19 First dose Medical (after Branch last modificati on) on [facility] 10/06/22 at 2000, Until Discontinu ed, Routine cefTRIAXone 2022- Yes 1000mg 1,000 mg, Univers (ROCEPHIN) 10-06 08-10 IV ity of 1,000 mg in 22:00: 21:59 Piggyback, [place] NaCl 0.9% 00 :00 Q24H ABX, Medic al (NS) 100 mL 5 doses, Bran ch MINI-BAG First dose on [facility] 10/06/22 at 1700, Last dose on Sat10/10/22 at 1700, Administer over 30 Minutes, 100 mL
Reas on for Anti-Infec tive: Empiric Therapy for Suspected Infection< br>Empiric Therapy Site: Respirator y
Durat ion of therapy: 5 days spironolact 2022-0 Yes 12.5mg 12.5 mg, [facility] one 10-06 Oral, ity of (ALDACTONE) 17:45: DAILY, [place] tablet 12.5 00 First dose Me dical mg on [facility] 10/06/22 at 1245, Until Discontinu ed, Routine acetaZOLAMI 2022-0 Yes 250mg 250 mg, Un renetta DE (DIAMOX) 10-06 Oral, ity of tablet 250 17:45: DAILY, [place] mg 00 First dose Medical on [facility] 10/06/22 at 1245, Until Discontinu ed, Routine NIFEdipine 2022-0 Yes 30mg 30 mg, Unive rs ER tablet 10-06 Oral, QAM, ity of 30 mg 14:00: First dose [place] 00 on [facility] 10/06/22 at Branch 0900, Until Discontinu ed, Routine magnesium 2022-0 Yes 400mg 400 mg, Univ ers oxide 10-06 Oral, ity of (MAG-OX 14:00: DAILY, [place] 400) tablet 00 First dose Me dical 400 mg on [facility] 10/06/22 at 0900, Until Discontinu ed ergocalcife 2022-0 Yes [id number] 50,000 Un renetta rol 10-06 Units, ity of (vitamin 14:00: Oral, [place] d2) 00 QWEEKLY, Medical (CALCIFEROL First dose Br anch ) capsule on [facility] 50,000 10/06/22 at Units 0900, Until Discontinu ed, Routine tamsulosin 2022-0 2023- No .4mg 0.4 mg, Uni vers (FLOMAX) 10-06 08-07 Oral, ity of capsule 0.4 14:00: 12:54 DAILY, [place] mg 00 :51 First dose Medical on [facility] 10/06/22 at 0900, Until Discontinu ed, Routine glipiZIDE 2022-0 Yes 2.5mg 2.5 mg, Univ ers XL 10-06 Oral, BID, ity of (GLUCOTROL 13:00: First dose [place] XL) tablet 00 on Sat Medical 2.5 mg 10/06/22 at Branch 0800, Until Discontinu ed, Routine budesonide 2022-0 Yes .5mg 0.5 mg, Univ ers (PULMICORT 10-06 Inhalation ity of RESPULE) 13:00: , BID, [place] nebulizer 00 First dose Medi christa solution on [facility] Branch 0.5 mg 10/06/22 at 0800, Until Discontinu ed, Routine baclofen 2022-0 2023- No 10mg 10 mg, Univer s (LIORESAL) 10-06 08-07 Oral, TID, it y of tablet 10 13:00: 23:13 First dose [place] mg 00 :56 on [facility] Medical 10/06/22 at Branch 0800, Until Discontinu ed, Routine levothyroxi Yes 150ug 150 mcg, U nivers ne 10-06 Oral, ity of (SYNTHROID) 11:00: QAM-0600, [place] tablet 150 00 First dose Med ical mcg on [facility] Branch 10/06/22 at 0600, Until Discontinu ed, Routine baclofen 0 2022- No 10mg 10 mg, Univer s (LIORESAL) 10-06- Oral, ity of tablet 10 04:30: 04:06 ONCE, 1 [place] mg 00 :00 dose, On Medical Sat10/05/22 Branch at 2330, MARTHA melatonin 2022-0 Yes 6mg 6 mg, Univers (MELATIN) 10-06 Oral, QHS, ity of tablet 6 mg 04:15: First dose [place] 00 (after Medical last Branch modificati on) on Sat10/05/22 at 2315, Until Discontinu ed, Routine HYDROcodone 0 Yes 1{tbl} 1 tablet, Univers -acetaminop 05 Oral, ity of hen (NORCO) 03:33: Q6HPRN, [place] 10-325 mg 26 Starting Medica l tablet 1 on Sat Branch tablet 10/05/22 at 2233, Until Discontinu ed, Routine, Pain (scale 4-6), Pain (scale 7-10) heparin 2022-0 Yes 5000U 5,000 Univers (porcine) 8-05 Units, ity of injection 03:00: Subcutaneo [place] 5,000 Units 00 us, Q8H, Medi christa First dose Branch on Sat10/05/22 at 2200, Until Discontinu ed, Routine hydrOXYzine 2022-2022- No 25mg 25 mg, Uni vers (ATARAX) 10-06 08-07 Oral, Q8H, ity of tablet 25 03:00: 23:13 First dose [place] mg 00 :56 on Fri Medical 10/05/22 at Branch 2200, Until Discontinu ed ipratropium 0 Yes .5mg 0.5 mg, Uni vers (ATROVENT) 10-06 Inhalation ity of 0.02 % 02:45: , Q4HPRN, [place] nebulizer 34 Starting Medica l solution on Sat Branch 0.5 mg 10/05/22 at 2145, Until Discontinu ed, Routine, Wheezing, Shortness of Breath cloNIDine Yes .2mg 0.2 mg, Unive rs (CATAPRES) 10-06 Oral, ity of tablet 0.2 02:45: TIDPRN, [place] mg 03 Starting Medical on Sat Branch 10/05/22 at 2145, Until Discontinu ed, Routine, Uncontroll ed Hypertensi on benzonatate Yes 100mg 100 mg, Un renetta (TESSALON 10-06 Oral, ity of PERLES) 02:44: Q8HPRN, [place] capsule 100 58 Starting Medi christa mg on Sat Branch 10/05/22 at 2144, Until Discontinu ed, Routine, Cough albuterol Yes 2.5mg 2.5 mg, Univ ers (PROVENTIL) 10-06 Inhalation it y of 2.5 mg /3 02:44: , Q6HPRN, [place] mL (0.083 32 Starting Medica l %) on Sat Branch nebulizer 10/05/22 at solution 2144, 2.5 mg Until Discontinu ed, Routine, Shortness of Breath, Wheezing furosemide 2022-0 2022- No 40mg 40 mg, IV U nivers (LASIX) 10-06 0805 Push, ity of injection 01:00: 17:35 Q12H, [place] 40 mg 00 :46 First dose Medical on Sat Branch 10/05/22 at 2000, Until Discontinu ed, Routine azithromyci 2022- No 500mg 500 mg, IV Univers n 10-05 Piggyback, ity of (ZITHROMAX) 23:00: 21:14 Q24H ABX, [place] 500 mg in 00 :46 3 doses, Medica l NaCl 0.9% First dose Bran ch (NS) 250 mL on Sat [facility] 10/05/22 at IV 1800, Last piggyback dose on 10/07/22 at 1800, Administer over 60 Minutes, 250 mL
Reas on for Anti-Infec tive: Empiric Therapy for Suspected Infection< br>Empiric Therapy Site: Respirator y
Durat ion of therapy: 72 hours methylpredn 2022- No 125mg 125 mg, U nivers isolone sod 10-05 Slow IV ity of succ 22:00: 21:18 Push, [place] (SOLU-MEDRO 00 :00 ONCE, 1 Medic al L) dose, On Branch injection Sat10/05/22 125 mg at 1700, MARTHA acetaminoph Yes 650mg 650 mg, Un renetta en 10-05 Oral, ity of (TYLENOL) 21:48: Q6HPRN, [place] tablet 650 27 Starting Medic al mg on Sat [place] 10/05/22 at 1648, Until Discontinu ed, Routine, Pain (scale 1-3) oxymetazoli Yes 1{puff} Use 1 Puff Univers ne HCl 10-05 in each ity of (AFRIN 21:46: nostril [place] NASAL) 20 every Medical other day. [place] Patient takes afrin over the counter, takes every other day cefTRIAXone 2022- No 1000mg 1,000 mg, Univers (ROCEPHIN) 10-05 IV ity of 1,000 mg [facility] 21:45[facility] [place] NaCl 0.9% 00 :00 ONCE, 1 Medical (NS) 100 mL dose, On Bran ch MINI-BAG Sat10/05/22 at 1645, Administer over 30 Minutes, 100 mL
Reas on for Anti-Infec tive: Documented Infection< br>Documen todd Infection Site: Respirator y
Du ration of Therapy: Other (see Comments) ipratropium 2022- No 3mL 3 mL, Univ ers -albuteroL 10-05 Inhalation it y of (DUONEB) 20:45: 19:52 , ONCE, 1 [place] 0.5 mg-3 00 :00 dose, On Medical mg(2.5 mg Sat10/05/22 Bran ch base)/3 mL at 1545, nebulizer Routine solution 3 mL furosemide 2022- No 40mg 40 mg, IV U nivers (LASIX) 10-05 Push, ity of injection 19:45: 19:44 ONCE, 1 [place] 40 mg 00 :00 dose, On Medical Sat10/05/22 Branch at 1445, MARTHA mirtazapine Yes [id number] 7.5mg Take 1 [facility] 7.5 mg 7-31 tablet by ity of tablet 00:00: mouth at [place] [address] bedtime. Medical Branch mirtazapine Yes [id number] 7.5mg Take 1 [facility] 7.5 mg 7-31 tablet by ity of tablet 00:00: mouth at [place] [address] bedtime. Medical Branch mirtazapine 0 Yes [id number] 7.5mg Take 1 [facility] 7.5 mg 7-31 tablet by ity of tablet 00:00: mouth at [place] [address] bedtime. Medical Branch mirtazapine 0 Yes [id number] 7.5mg Take 1 [facility] 7.5 mg 7-31 tablet by ity of tablet 00:00: mouth at [place] [address] bedtime. Medical Branch mirtazapine 0 Yes [id number] 7.5mg Take 1 [facility] 7.5 mg 7-31 tablet by ity of tablet 00:00: mouth at [place] [address] bedtime. Medical Branch mirtazapine 2022-0 Yes [id number] 7.5mg Take 1 [facility] 7.5 mg 7-31 tablet by ity of tablet 00:00: mouth at [place] [address] bedtime. Medical Branch mirtazapine 0 Yes [id number] 7.5mg Take 1 [facility] 7.5 mg 7-31 tablet by ity of tablet 00:00: mouth at [place] [address] bedtime. Medical Branch mirtazapine Yes [id number] 7.5mg Take 1 [facility] 7.5 mg 7-31 tablet by ity of tablet 00:00: mouth at [place] [address] bedtime. Medical Branch mirtazapine 2022-0 Yes [id number] 7.5mg Take 1 [facility] 7.5 mg 7-31 tablet by ity of tablet 00:00: mouth at [place] [address] bedtime. Medical Branch mirtazapine 2022-0 Yes [id number] 7.5mg Take 1 [facility] 7.5 mg 7-31 tablet by ity of tablet 00:00: mouth at [place] [address] bedtime. Medical Branch mirtazapine 2022-0 Yes [id number] 7.5mg Take 1 [facility] 7.5 mg 7-31 tablet by ity of tablet 00:00: mouth at [place] [address] bedtime. Medical Branch mirtazapine 2022-0 Yes [id number] 7.5mg Take 1 [facility] 7.5 mg 7-31 tablet by ity of tablet 00:00: mouth at [place] [address] bedtime. Medical Branch mirtazapine 2022-0 Yes [id number] 7.5mg Take 1 [facility] 7.5 mg 7-31 tablet by ity of tablet 00:00: mouth at [place] [address] bedtime. [facility] Branch mirtazapine 2022-0 Yes [id number] 7.5mg Take 1 [facility] 7.5 mg 7-31 tablet by ity of tablet 00:00: mouth at [place] [address] bedtime. [facility] Branch mirtazapine 2022-0 Yes [id number] 7.5mg Take 1 [facility] 7.5 mg 7-31 tablet by ity of tablet 00:00: mouth at [place] [address] bedtime. [facility] Branch mirtazapine 2022-0 Yes [id number] 7.5mg Take 1 [facility] 7.5 mg 7-31 tablet by ity of tablet 00:00: mouth at [place] [address] bedtime. [facility] Branch mirtazapine 2022-0 Yes [id number] 7.5mg Take 1 [facility] 7.5 mg 7-31 tablet by ity of tablet 00:00: mouth at [place] [address] bedtime. [facility] Branch mirtazapine 2022-0 Yes [id number] 7.5mg Take 1 [facility] 7.5 mg 7-31 tablet by ity of tablet 00:00: mouth at [place] [address] bedtime. Medical Branch mirtazapine 2022-0 Yes [id number] 7.5mg Take 1 [facility] 7.5 mg 7-31 tablet by ity of tablet 00:00: mouth at [place] [address] bedtime. [facility] Branch mirtazapine 2022-0 Yes [id number] 7.5mg Take 1 [facility] 7.5 mg 7-31 tablet by ity of tablet 00:00: mouth at [place] [address] bedtime. Medical Branch mirtazapine 2022-0 Yes [id number] 7.5mg Take 1 [facility] 7.5 mg 7-31 tablet by ity of tablet 00:00: mouth at [place] [address] bedtime. Medical Branch mirtazapine 2022-0 Yes [id number] 7.5mg Take 1 [facility] 7.5 mg 7-31 tablet by ity of tablet 00:00: mouth at [place] [address] bedtime. Medical Branch mirtazapine 2022-0 Yes [id number] 7.5mg Take 1 [facility] 7.5 mg 7-31 tablet by ity of tablet 00:00: mouth at [place] [address] bedtime. Medical Branch mirtazapine 2022-0 Yes [id number] 7.5mg Take 1 [facility] 7.5 mg 7-31 tablet by ity of tablet 00:00: mouth at [place] [address] bedtime. Medical Branch mirtazapine 2022-0 Yes [id number] 7.5mg Take 1 [facility] 7.5 mg 7-31 tablet by ity of tablet 00:00: mouth at [place] [address] bedtime. Medical Branch mirtazapine 2022-0 Yes [id number] 7.5mg Take 1 [facility] 7.5 mg 7-31 tablet by ity of tablet 00:00: mouth at [place] [address] bedtime. Medical Branch mirtazapine 2022-0 Yes [id number] 7.5mg Take 1 [facility] 7.5 mg 7-31 tablet by ity of tablet 00:00: mouth at [place] [address] bedtime. Medical Branch mirtazapine 2022-0 Yes [id number] 7.5mg Take 1 [facility] 7.5 mg 7-31 tablet by ity of tablet 00:00: mouth at [place] [address] bedtime. Medical Branch mirtazapine 2022-0 Yes [id number] 7.5mg Take 1 [facility] 7.5 mg 7-31 tablet by ity of tablet 00:00: mouth at [place] [address] bedtime. Medical Branch mirtazapine 2022-0 Yes [id number] 7.5mg Take 1 [facility] 7.5 mg 7-31 tablet by ity of tablet 00:00: mouth at [place] [address] bedtime. Medical Branch mirtazapine 2022-0 Yes [id number] 7.5mg Take 1 Univers 7.5 mg 7-31 tablet by ity of tablet 00:00: mouth at [place] [address] bedtime. Medical Branch mirtazapine 2022-0 Yes [id number] 7.5mg Take 1 [facility] 7.5 mg 7-31 tablet by ity of tablet 00:00: mouth at [place] [address] bedtime. Medical Branch mirtazapine 2022-0 Yes [id number] 7.5mg Take 1 [facility] 7.5 mg 7-31 tablet by ity of tablet 00:00: mouth at [place] [address] bedtime. Medical Branch mirtazapine 2022-0 Yes [id number] 7.5mg Take 1 [facility] 7.5 mg 7-31 tablet by ity of tablet 00:00: mouth at [place] [address] bedtime. Medical Branch mirtazapine 2022-0 Yes [id number] 7.5mg Take 1 [facility] 7.5 mg 7-31 tablet by ity of tablet 00:00: mouth at [place] [address] bedtime. Medical Branch mirtazapine 2022-0 Yes [id number] 7.5mg Take 1 Univers 7.5 mg 7-31 tablet by ity of tablet 00:00: mouth at [place] [address] bedtime. Medical Branch mirtazapine 2022-0 Yes [id number] 7.5mg Take 1 [facility] 7.5 mg 7-31 tablet by ity of tablet 00:00: mouth at [place] [address] bedtime. Medical Branch mirtazapine 2022-0 Yes [id number] 7.5mg Take 1 [facility] 7.5 mg 7-31 tablet by ity of tablet 00:00: mouth at [place] [address] bedtime. Medical Branch mirtazapine 2022-0 Yes [id number] 7.5mg Take 1 [facility] 7.5 mg 7-31 tablet by ity of tablet 00:00: mouth at [place] [address] bedtime. Medical Branch mirtazapine 2022-0 Yes [id number] 7.5mg Take 1 [facility] 7.5 mg 7-31 tablet by ity of tablet 00:00: mouth at [place] [address] bedtime. Medical Branch mirtazapine 0 Yes [id number] 7.5mg Take 1 [facility] 7.5 mg 7-31 tablet by ity of tablet 00:00: mouth at [place] [address] bedtime. [facility] Branch mirtazapine 0 Yes [id number] 7.5mg Take 1 Univers 7.5 mg 7-31 tablet by ity of tablet 00:00: mouth at [place] [address] bedtime. [facility] Branch mirtazapine 0 Yes [id number] 7.5mg Take 1 Univers 7.5 mg 7-31 tablet by ity of tablet 00:00: mouth at [place] [address] bedtime. [facility] Branch mirtazapine 0 Yes [id number] 7.5mg Take 1 Univers 7.5 mg 7-31 tablet by ity of tablet 00:00: mouth at [place] [address] bedtime. [facility] Branch mirtazapine 0 Yes [id number] 7.5mg Take 1 Univers 7.5 mg 7-31 tablet by ity of tablet 00:00: mouth at [place] [address] bedtime. [facility] Branch mirtazapine 0 Yes [id number] 7.5mg Take 1 Univers 7.5 mg 7-31 tablet by ity of tablet 00:00: mouth at [place] [address] bedtime. [facility] Branch mirtazapine 0 Yes [id number] 7.5mg Take 1 Univers 7.5 mg 7-31 tablet by ity of tablet 00:00: mouth at [place] [address] bedtime. [facility] Branch mirtazapine 0 Yes [id number] 7.5mg Take 1 Univers 7.5 mg 7-31 tablet by ity of tablet 00:00: mouth at [place] [address] bedtime. [facility] Branch mirtazapine 0 Yes [id number] 7.5mg Take 1 Univers 7.5 mg 7-31 tablet by ity of tablet 00:00: mouth at [place] [address] bedtime. Medical Branch predniSONE Yes 40mg 40 mg, Unive rs (DELTASONE) 7-19 Oral, ity of tablet 40 14:00: DAILY, [place] mg 00 First dose Medical on Wed Branch 09/19/22 at 0900, Until Discontinu ed, Routine pravastatin 0 Yes 40mg 40 mg, Univ ers (PRAVACHOL) 7-19 Oral, QHS, it y of tablet 40 02:00: First dose [place] mg 00 on [facility] 09/18/22 at Branch 2100, Until Discontinu ed, Routine predniSONE 2022- Yes [id number] 40mg Take 2 Univers 20 mg 09-19-24 tablets by ity of tablet 00:00: 04:59 mouth in [place] 00 :00 the [facility] for 4 days. predniSONE 2022- Yes [id number] 40mg Take 2 Univers 20 mg 09-19-24 tablets by ity of tablet 00:00: 04:59 mouth in [place] 00 :00 the [facility] for 4 days. azithromyci 2022- Yes 250mg 250 mg, IV Univers n 09-18 Piggyback, ity of (ZITHROMAX) 23:30: 23:29 Q24H ABX, [place] 250 mg in 00 :00 4 doses, Medica l NaCl 0.9% First dose Bran ch (NS) 250 mL on Sat piggyback 09/18/22 at 1830, Last dose on Sat09/21/22 at 1830, Administer over 60 Minutes, 250 mL
Reas on for Anti-Infec tive: Empiric Therapy for Suspected Infection< br>Empiric Therapy Site: Respirator y
Durat ion of therapy: 7 days oxymetazoli Yes 1{puff} Use 1 Puff Univers ne HCl 7-18 in each ity of (AFRIN 19:09: nostril [place] NASAL) 20 every Medical other day. [place] Patient takes afrin over the counter, takes every other day oxymetazoli Yes 1{puff} Use 1 Puff Univers ne HCl 7-18 in each ity of (AFRIN 19:09: nostril [place] NASAL) 20 every Medical other day. [place] Patient takes afrin over the counter, takes every other day oxymetazoli Yes 1{puff} Use 1 Puff Univers ne HCl 7-18 in each ity of (AFRIN 19:09: nostril [place] NASAL) 20 every Medical other day. [place] Patient takes afrin over the counter, takes every other day oxymetazoli 0 Yes 1{puff} Use 1 Puff Univers ne HCl 7-18 in each ity of (AFRIN 19:09: nostril [place] NASAL) 20 every Medical other day. Branch Patient takes afrin over the counter, takes every other day oxymetazoli 2023-0 Yes 1{puff} Use 1 Puff Univers ne HCl 7-18 in each ity of (AFRIN 19:09: nostril [place] NASAL) 20 every Medical other day. Branch Patient takes afrin over the counter, takes every other day oxymetazoli 2023-0 Yes 1{puff} Use 1 Puff Univers ne HCl 7-18 in each ity of (AFRIN 19:09: nostril [place] NASAL) 20 every Medical other day. Branch Patient takes afrin over the counter, takes every other day oxymetazoli 2023-0 Yes 1{puff} Use 1 Puff Univers ne HCl 7-18 in each ity of (AFRIN 19:09: nostril [place] NASAL) 20 every Medical other day. Branch Patient takes afrin over the counter, takes every other day oxymetazoli 2023-0 Yes 1{puff} Use 1 Puff Univers ne HCl 7-18 in each ity of (AFRIN 19:09: nostril [place] NASAL) 20 every Medical other day. Branch Patient takes afrin over the counter, takes every other day oxymetazoli 2023-0 Yes 1{puff} Use 1 Puff Univers ne HCl 7-18 in each ity of (AFRIN 19:09: nostril [place] NASAL) 20 every Medical other day. Branch Patient takes afrin over the counter, takes every other day oxymetazoli 2023-0 Yes 1{puff} Use 1 Puff Univers ne HCl 7-18 in each ity of (AFRIN 19:09: nostril [place] NASAL) 20 every Medical other day. Branch Patient takes afrin over the counter, takes every other day oxymetazoli 2023-0 Yes 1{puff} Use 1 Puff Univers ne HCl 7-18 in each ity of (AFRIN 19:09: nostril [place] NASAL) 20 every Medical other day. Branch Patient takes afrin over the counter, takes every other day oxymetazoli 2023-0 Yes 1{puff} Use 1 Puff Univers ne HCl 7-18 in each ity of (AFRIN 19:09: nostril [place] NASAL) 20 every Medical other day. [place] Patient takes afrin over the counter, takes every other day oxymetazoli 2022-0 Yes 1{puff} Use 1 Puff Univers ne HCl 18 in each ity of (AFRIN 19:09: nostril [place] NASAL) 20 every Medical other day. [place] Patient takes afrin over the counter, takes every other day fluticasone 2022-0 Yes 2{spray 2 [place], Univers propionate 09-18 } Nasal, ity of 50 14:00: DAILY, [place] mcg/actuati 00 First dose Me dical on nasal on Sat [place] spray 2 09/18/22 at [place] 0900, Until Discontinu ed, Routine vitamin b 2022-0 Yes 1{tbl} 1 tablet, U nivers complex-vit 09-18 Oral, ity of junior 14:00: DAILY, [place] c-folic 00 First dose Medica l acid on Sat [place] (NEPHRO-VIT 09/18/22 at E) 0.8 mg 0900, tablet 1 Until tablet Discontinu ed, Routine ergocalcife 2022-0 Yes [id number] 50,000 Un renetta rol 09-18 Units, ity of (vitamin 14:00: Oral, [place] d2) 00 QWEEKLY, Medical (CALCIFEROL First dose Br anch ) capsule on Sat 50,000 09/18/22 at Units 0900, Until Discontinu ed, Routine budesonide 2022-0 Yes .5mg 0.5 mg, Univ ers (PULMICORT 18 Inhalation ity of RESPULE) 13:00: , BID, [place] nebulizer 00 First dose Medi christa solution on Sat 0.5 mg 09/18/22 at 0800, Until Discontinu ed, Routine tamsulosin 3-0 Yes .4mg 0.4 mg, Univ ers (FLOMAX) 18 Oral, BID, ity o f capsule 0.4 13:00: First dose [place] mg 00 on Medical 09/18/22 at Branch 0800, Until Discontinu ed, Routine acetaminoph 2023-0 Yes 650mg 650 mg, Un renetta en 18 Oral, ity of (TYLENOL) 12:39: Q8HPRN, [place] tablet 650 55 Starting Medic al mg on Sat Branch 09/18/22 at 0739, Until Discontinu ed, Routine, Pain (scale 4-6), Pain (scale 1-3) levothyroxi 2022-0 Yes 150ug 150 mcg, U nivers ne 18 Oral, ity of (SYNTHROID) 11:00: QAM-0600, [place] tablet 150 00 First dose Med ical mcg on Sat Branch 09/18/22 at 0600, Until Discontinu ed, Routine methylpredn 2022-0 2022- No 60mg 60 mg, Uni vers isolone sod 09-18-18 Intravenou i ty of succ 11:00: 19:18 s, Q8H, 6 [place] (SOLU-MEDRO 00 :59 doses, Medica l L) First dose Branch injection on Sat 60 mg 09/18/22 at 0600, Last dose on Sat09/19/22 at 2200, 2 mL benzonatate 2022-0 Yes 100mg 100 mg, Un renetta (TESSALON 09-18 Oral, ity of PERLES) 10:03: Q8HPRN, [place] capsule 100 10 Starting Medi christa mg on Sat Branch 09/18/22 at 0503, Until Discontinu ed, Routine, Cough heparin 2022-0 Yes 5000U 5,000 Univers (porcine) 09-18 Units, ity of injection 03:00: Subcutaneo [place] 5,000 Units 00 us, Q8H, Medi christa First dose Branch on Sat09/17/22 at 2200, Until Discontinu ed, Routine Sliding 2022-0 Yes Subcutaneo Univ ers Scale -18 us, TID ity of Insulin - 02:00: MEALS+HS, [place] as Lispro 00 First dose Medical (HumaLOG) on Sat Branch 09/17/22 at 2100, Until Discontinu ed, Routine ipratropium 2022-0 Yes 3mL 3 mL, Unive rs -albuteroL 09-18 Inhalation ity of (DUONEB) 01:00: , Q4H, [place] 0.5 mg-3 00 First dose Medic al mg(2.5 mg on Sat Branch base)/3 mL 09/17/22 at nebulizer 2000, solution 3 Until mL Discontinu ed, Routine azithromyci 2022- Yes [id number] 500mg Take 1 Univers n 500 mg 09-18 tablet by ity o f tablet 00:00: 04:59 mouth in [place] 00 :00 the [facility] for 2 days. azithromyci 2022- Yes [id number] 500mg Take 1 Univers n 500 mg 09-18 tablet by ity o f tablet 00:00: 04:59 mouth in [place] 00 :00 [facility] for 2 days. azithromyci 2022- No 500mg 500 mg, IV Univers n 09-17 Piggyback, ity of (ZITHROMAX) 23:30: 03:15 ONCE, 1 [place] 500 mg in 00 :00 dose, On Medica l NaCl 0.9% [facility] Branch (NS) 250 mL 09/17/22 at VIAL-MATE 1830, IV Administer piggyback over 60 Minutes, 250 mL
R clarissa for Anti-Infec tive: Empiric Therapy for Suspected Infection< br>Empiric Therapy Site: Respirator y
Durat ion of therapy: 7 days cefTRIAXone 2022- Yes 1000mg 1,000 mg, Univers (ROCEPHIN) 09-17 IV ity of 1,000 mg in 22:45: [facility] [place] NaCl 0.9% 00 :00 Q24H ABX, Medic al (NS) 100 mL 5 doses, Bran ch MINI-BAG First dose on Sat09/17/22 at 1745, Last dose on Sat09/21/22 at 1745, Administer over 30 Minutes, 100 mL
Reas on for Anti-Infec tive: Empiric Therapy for Suspected Infection< br>Empiric Therapy Site: Respirator y
Durat ion of therapy: 7 days predniSONE 2022- No 40mg 40 mg, Univ ers (DELTASONE) 09-17 Oral, ity of tablet 40 22:45: 10:06 DAILY, 5 [place] mg 00 :56 doses, Medical First dose Branch on Sat09/17/22 at 1745, Last dose on Sat09/21/22 at 0900, Routine glucagon Yes 1mg 1 mg, Univers (GLUCAGEN 09-17 Intramuscu ity of DIAGNOSTIC 22:33: lar, PRN, [place] KIT) 40 Starting Medical injection 1 on [facility] 09/17/22 at 1733, Until Discontinu ed, MARTHA, Blood Glucose < or = 70 mg/dL and patient is NPO, unable to swallow or has mental changes. dextrose 50 Yes 25mL 25 mL, Univ ers % in water 09-17 Slow IV ity of (D50W) 22:33: Push, PRN, [place] injection 40 Starting Medica l 25 mL on [facility] 09/17/22 at 1733, Until Discontinu ed, MARTHA, Blood Glucose < or = 70 mg/dL and patient is NPO, unable to swallow or has mental status changes. aspirin 2022- No 324mg 324 mg, Unive rs chewable 09-1717 Oral, ity of tablet 324 22:00: 23:46 ONCE, 1 [place] mg 00 :00 dose, On Medical [facility] 09/17/22 at 1700, Routine ipratropium Yes [id number] 1{spray Use 1 Univers 42 mcg 7-11 1 } [place] in ity of (0.06 %) 00:00: each [place] nasal spray 00 nostril in [facility] morning and 1 [place] in the evening. ipratropium 2022- No [id number] 1{spray Use 1 Univers 42 mcg 7-11 07-18 1 } [place] in ity of (0.06 %) 00:00: 00:00 each [place] nasal spray 00 :00 nostril in [facility] morning and 1 [place] in the evening. albuterol Yes [id number] 2.5mg Inhale 3 Univers 2.5 mg /3 6-19 mL every 6 ity of mL (0.083 00:00: (six) [place] %) 00 hours as Medical nebulizer needed for Bran ch solution Shortness of Breath or Wheezing. albuterol Yes [id number] 2.5mg Inhale 3 Univers 2.5 mg /3 6-19 mL every 6 ity of mL (0.083 00:00: (six) [place] %) 00 hours as Medical nebulizer needed for Bran ch solution Shortness of Breath or Wheezing. albuterol 2023-0 Yes [id number] 2.5mg Inhale 3 Univers 2.5 mg /3 6-19 mL every 6 ity of mL (0.083 00:00: (six) [place] %) 00 hours as Medical nebulizer needed for Bran ch solution Shortness of Breath or Wheezing. albuterol 2023-0 Yes [id number] 2.5mg Inhale 3 Univers 2.5 mg /3 6-19 mL every 6 ity of mL (0.083 00:00: (six) [place] %) 00 hours as Medical nebulizer needed for Bran ch solution Shortness of Breath or Wheezing. albuterol 2023-0 Yes [id number] 2.5mg Inhale 3 Univers 2.5 mg /3 6-19 mL every 6 ity of mL (0.083 00:00: (six) [place] %) 00 hours as Medical nebulizer needed for Bran ch solution Shortness of Breath or Wheezing. albuterol 2023-0 Yes [id number] 2.5mg Inhale 3 Univers 2.5 mg /3 6-19 mL every 6 ity of mL (0.083 00:00: (six) [place] %) 00 hours as Medical nebulizer needed for Bran ch solution Shortness of Breath or Wheezing. albuterol 2023-0 Yes [id number] 2.5mg Inhale 3 Univers 2.5 mg /3 6-19 mL every 6 ity of mL (0.083 00:00: (six) [place] %) 00 hours as Medical nebulizer needed for Bran ch solution Shortness of Breath or Wheezing. albuterol 2023-0 Yes [id number] 2.5mg Inhale 3 Univers 2.5 mg /3 6-19 mL every 6 ity of mL (0.083 00:00: (six) [place] %) 00 hours as Medical nebulizer needed for Bran ch solution Shortness of Breath or Wheezing. albuterol 2023-0 Yes [id number] 2.5mg Inhale 3 Univers 2.5 mg /3 6-19 mL every 6 ity of mL (0.083 00:00: (six) [place] %) 00 hours as Medical nebulizer needed for Bran ch solution Shortness of Breath or Wheezing. albuterol 2023-0 Yes [id number] 2.5mg Inhale 3 Univers 2.5 mg /3 6-19 mL every 6 ity of mL (0.083 00:00: (six) [place] %) 00 hours as Medical nebulizer needed for Bran ch solution Shortness of Breath or Wheezing. albuterol 3-0 Yes [id number] 2.5mg Inhale 3 Univers 2.5 mg /3 6-19 mL every 6 ity of mL (0.083 00:00: (six) [place] %) 00 hours as Medical nebulizer needed for Bran ch solution Shortness of Breath or Wheezing. albuterol 3-0 Yes [id number] 2.5mg Inhale 3 Univers 2.5 mg /3 6-19 mL every 6 ity of mL (0.083 00:00: (six) [place] %) 00 hours as Medical nebulizer needed for Bran ch solution Shortness of Breath or Wheezing. albuterol 2022-0 Yes [id number] 2.5mg Inhale 3 Univers 2.5 mg /3 6-19 mL every 6 ity of mL (0.083 00:00: ([facility] [place] %) 00 hours as Medical nebulizer needed for Bran ch solution Shortness of Breath or Wheezing. albuterol 2022-0 Yes [id number] 2.5mg Inhale 3 Univers 2.5 mg /3 6-19 mL every 6 ity of mL (0.083 00:00: (six) [place] %) 00 hours as Medical nebulizer needed for Bran ch solution Shortness of Breath or Wheezing. albuterol 3-0 Yes [id number] 2.5mg Inhale 3 Univers 2.5 mg /3 6-19 mL every 6 ity of mL (0.083 00:00: (six) [place] %) 00 hours as Medical nebulizer needed for Bran ch solution Shortness of Breath or Wheezing. albuterol 3-0 Yes [id number] 2.5mg Inhale 3 Univers 2.5 mg /3 6-19 mL every 6 ity of mL (0.083 00:00: (six) [place] %) 00 hours as Medical nebulizer needed for Bran ch solution Shortness of Breath or Wheezing. albuterol 3-0 Yes [id number] 2.5mg Inhale 3 Univers 2.5 mg /3 6-19 mL every 6 ity of mL (0.083 00:00: ([facility] [place] %) 00 hours as Medical nebulizer needed for Bran ch solution Shortness of Breath or Wheezing. albuterol 3-0 Yes [id number] 2.5mg Inhale 3 Univers 2.5 mg /3 6-19 mL every 6 ity of mL (0.083 00:00: ([facility] [place] %) 00 hours as Medical nebulizer needed for Bran ch solution Shortness of Breath or Wheezing. albuterol 3-0 Yes [id number] 2.5mg Inhale 3 Univers 2.5 mg /3 6-19 mL every 6 ity of mL (0.083 00:00: ([facility] [place] %) 00 hours as Medical nebulizer needed for Bran ch solution Shortness of Breath or Wheezing. albuterol 3-0 Yes [id number] 2.5mg Inhale 3 Univers 2.5 mg /3 6-19 mL every 6 ity of mL (0.083 00:00: ([facility] [place] %) 00 hours as Medical nebulizer needed for Bran ch solution Shortness of Breath or Wheezing. albuterol 3-0 Yes [id number] 2.5mg Inhale 3 Univers 2.5 mg /3 6-19 mL every 6 ity of mL (0.083 00:00: (six) [place] %) 00 hours as Medical nebulizer needed for Bran ch solution Shortness of Breath or Wheezing. albuterol 3-0 Yes [id number] 2.5mg Inhale 3 Univers 2.5 mg /3 6-19 mL every 6 ity of mL (0.083 00:00: (six) [place] %) 00 hours as Medical nebulizer needed for Bran ch solution Shortness of Breath or Wheezing. albuterol 3-0 Yes [id number] 2.5mg Inhale 3 Univers 2.5 mg /3 6-19 mL every 6 ity of mL (0.083 00:00: (six) [place] %) 00 hours as Medical nebulizer needed for Bran ch solution Shortness of Breath or Wheezing. albuterol 3-0 Yes [id number] 2.5mg Inhale 3 Univers 2.5 mg /3 6-19 mL every 6 ity of mL (0.083 00:00: (six) [place] %) 00 hours as Medical nebulizer needed for Bran ch solution Shortness of Breath or Wheezing. albuterol 2023-0 Yes [id number] 2.5mg Inhale 3 Univers 2.5 mg /3 6-19 mL every 6 ity of mL (0.083 00:00: (six) [place] %) 00 hours as Medical nebulizer needed for Bran ch solution Shortness of Breath or Wheezing. albuterol 2023-0 Yes [id number] 2.5mg Inhale 3 Univers 2.5 mg /3 6-19 mL every 6 ity of mL (0.083 00:00: (six) [place] %) 00 hours as Medical nebulizer needed for Bran ch solution Shortness of Breath or Wheezing. albuterol 2023-0 Yes [id number] 2.5mg Inhale 3 Univers 2.5 mg /3 6-19 mL every 6 ity of mL (0.083 00:00: ([facility] [place] %) 00 hours as Medical nebulizer needed for Bran ch solution Shortness of Breath or Wheezing. albuterol 3-0 Yes [id number] 2.5mg Inhale 3 Univers 2.5 mg /3 6-19 mL every 6 ity of mL (0.083 00:00: ([facility] [place] %) 00 hours as Medical nebulizer needed for Bran ch solution Shortness of Breath or Wheezing. albuterol 2023-0 Yes [id number] 2.5mg Inhale 3 Univers 2.5 mg /3 6-19 mL every 6 ity of mL (0.083 00:00: (six) [place] %) 00 hours as Medical nebulizer needed for Bran ch solution Shortness of Breath or Wheezing. albuterol 2023-0 Yes [id number] 2.5mg Inhale 3 Univers 2.5 mg /3 6-19 mL every 6 ity of mL (0.083 00:00: (six) [place] %) 00 hours as Medical nebulizer needed for Bran ch solution Shortness of Breath or Wheezing. albuterol 2023-0 Yes [id number] 2.5mg Inhale 3 Univers 2.5 mg /3 6-19 mL every 6 ity of mL (0.083 00:00: (six) [place] %) 00 hours as Medical nebulizer needed for Bran ch solution Shortness of Breath or Wheezing. albuterol 2023-0 Yes [id number] 2.5mg Inhale 3 Univers 2.5 mg /3 6-19 mL every 6 ity of mL (0.083 00:00: (six) [place] %) 00 hours as Medical nebulizer needed for Bran ch solution Shortness of Breath or Wheezing. albuterol 2023-0 Yes [id number] 2.5mg Inhale 3 Univers 2.5 mg /3 6-19 mL every 6 ity of mL (0.083 00:00: (six) [place] %) 00 hours as Medical nebulizer needed for Bran ch solution Shortness of Breath or Wheezing. albuterol 2023-0 Yes [id number] 2.5mg Inhale 3 Univers 2.5 mg /3 6-19 mL every 6 ity of mL (0.083 00:00: (six) [place] %) 00 hours as Medical nebulizer needed for Bran ch solution Shortness of Breath or Wheezing. albuterol 3-0 Yes [id number] 2.5mg Inhale 3 Univers 2.5 mg /3 6-19 mL every 6 ity of mL (0.083 00:00: (six) [place] %) 00 hours as Medical nebulizer needed for Bran ch solution Shortness of Breath or Wheezing. albuterol 3-0 Yes [id number] 2.5mg Inhale 3 Univers 2.5 mg /3 6-19 mL every 6 ity of mL (0.083 00:00: (six) [place] %) 00 hours as Medical nebulizer needed for Bran ch solution Shortness of Breath or Wheezing. albuterol 2023-0 Yes [id number] 2.5mg Inhale 3 Univers 2.5 mg /3 6-19 mL every 6 ity of mL (0.083 00:00: (six) [place] %) 00 hours as Medical nebulizer needed for Bran ch solution Shortness of Breath or Wheezing. albuterol 2023-0 Yes [id number] 2.5mg Inhale 3 Univers 2.5 mg /3 6-19 mL every 6 ity of mL (0.083 00:00: (six) [place] %) 00 hours as Medical nebulizer needed for Bran ch solution Shortness of Breath or Wheezing. albuterol 2023-0 Yes [id number] 2.5mg Inhale 3 Univers 2.5 mg /3 6-19 mL every 6 ity of mL (0.083 00:00: (six) [place] %) 00 hours as Medical nebulizer needed for Bran ch solution Shortness of Breath or Wheezing. albuterol 3-0 Yes [id number] 2.5mg Inhale 3 Univers 2.5 mg /3 6-19 mL every 6 ity of mL (0.083 00:00: (six) [place] %) 00 hours as Medical nebulizer needed for Bran ch solution Shortness of Breath or Wheezing. albuterol 3-0 Yes [id number] 2.5mg Inhale 3 Univers 2.5 mg /3 6-19 mL every 6 ity of mL (0.083 00:00: (six) [place] %) 00 hours as Medical nebulizer needed for Bran ch solution Shortness of Breath or Wheezing. albuterol 2022-0 Yes [id number] 2.5mg Inhale 3 Univers 2.5 mg /3 6-19 mL every 6 ity of mL (0.083 00:00: [facility] [place] [facility] 00 hours as Medical nebulizer needed for Bran ch solution Shortness of Breath or Wheezing. albuterol 2022-0 Yes [id number] 2.5mg Inhale 3 [facility] 2.5 mg /3 6-19 mL every 6 ity of mL (0.083 00:00: (six) [place] %) 00 hours as Medical nebulizer needed for Bran ch solution Shortness of Breath or Wheezing. albuterol 3-0 Yes [id number] 2.5mg Inhale 3 [facility] 2.5 mg /3 6-19 mL every 6 ity of mL (0.083 00:00: (six) [place] %) 00 hours as Medical nebulizer needed for Bran ch solution Shortness of Breath or Wheezing. albuterol 3-0 Yes [id number] 2.5mg Inhale 3 [facility] 2.5 mg /3 6-19 mL every 6 ity of mL (0.083 00:00: (six) [place] %) 00 hours as Medical nebulizer needed for Bran ch solution Shortness of Breath or Wheezing. albuterol 3-0 Yes [id number] 2.5mg Inhale 3 [facility] 2.5 mg /3 6-19 mL every 6 ity of mL (0.083 00:00: [facility] [place] [facility] 00 hours as Medical nebulizer needed for Bran ch solution Shortness of Breath or Wheezing. albuterol 3-0 Yes [id number] 2.5mg Inhale 3 [facility] 2.5 mg /3 6-19 mL every 6 ity of mL (0.083 00:00: [facility] [place] [facility] 00 hours as Medical nebulizer needed for Bran ch solution Shortness of Breath or Wheezing. albuterol 3-0 Yes [id number] 2.5mg Inhale 3 [facility] 2.5 mg /3 6-19 mL every 6 ity of mL (0.083 00:00: [facility] [place] [facility] 00 hours as Medical nebulizer needed for Bran ch solution Shortness of Breath or Wheezing. albuterol 3-0 Yes [id number] 2.5mg Inhale 3 [facility] 2.5 mg /3 6-19 mL every 6 ity of mL (0.083 00:00: [facility] [place] [facility] 00 hours as Medical nebulizer needed for Bran ch solution Shortness of Breath or Wheezing. albuterol 3-0 Yes [id number] 2.5mg Inhale 3 [facility] 2.5 mg /3 6-19 mL every 6 ity of mL (0.083 00:00: (six) [place] %) 00 hours as Medical nebulizer needed for Bran ch solution Shortness of Breath or Wheezing. albuterol 3-0 Yes [id number] 2.5mg Inhale 3 [facility] 2.5 mg /3 6-19 mL every 6 ity of mL (0.083 00:00: (six) [place] %) 00 hours as Medical nebulizer needed for Bran ch solution Shortness of Breath or Wheezing. albuterol 3-0 Yes [id number] 2.5mg Inhale 3 [facility] 2.5 mg /3 6-19 mL every 6 ity of mL (0.083 00:00: (six) [place] %) 00 hours as Medical nebulizer needed for Bran ch solution Shortness of Breath or Wheezing. albuterol 3-0 Yes [id number] 2.5mg Inhale 3 [facility] 2.5 mg /3 6-19 mL every 6 ity of mL (0.083 00:00: (six) [place] %) 00 hours as Medical nebulizer needed for Bran ch solution Shortness of Breath or Wheezing. albuterol 2022-0 Yes [id number] 2.5mg Inhale 3 [facility] 2.5 mg /3 6-19 mL every 6 ity of mL (0.083 00:00: (six) [place] %) 00 hours as Medical nebulizer needed for Bran ch solution Shortness of Breath or Wheezing. albuterol 2022-0 Yes [id number] 2.5mg Inhale 3 [facility] 2.5 mg /3 6-19 mL every 6 ity of mL (0.083 00:00: (six) [place] %) 00 hours as Medical nebulizer needed for Bran ch solution Shortness of Breath or Wheezing. albuterol 2022-0 Yes [id number] 2.5mg Inhale 3 [facility] 2.5 mg /3 6-19 mL every 6 ity of mL (0.083 00:00: (six) [place] %) 00 hours as Medical nebulizer needed for Bran ch solution Shortness of Breath or Wheezing. albuterol 2022-0 3- No [id number] 2.5mg Inhale 3 [facility] 2.5 mg /3 6-19 06-19 mL every 6 ity of mL (0.083 00:00: 00:00 (six) [place] %) 00 :00 hours as Medical nebulizer needed for Bran ch solution Shortness of Breath or Wheezing. BACLOFEN 10 2022-0 Yes [id number] TAKE ONE [facility] mg tablet 4-19 TABLET BY ity o f 00:00: MOUTH [place] 00 THREE Medical TIMES A Branch DAY NEEDED FOR PAIN BACLOFEN 10 2022-0 Yes [id number] TAKE ONE [facility] mg tablet 4-19 TABLET BY ity o f 00:00: MOUTH [place] 00 THREE Medical TIMES A Branch DAY NEEDED FOR PAIN BACLOFEN 10 2022-0 Yes [id number] TAKE ONE [facility] mg tablet 4-19 TABLET BY ity o f 00:00: MOUTH [place] 00 THREE Medical TIMES A Branch DAY NEEDED FOR PAIN BACLOFEN 10 2022-0 Yes [id number] TAKE ONE [facility] mg tablet 4-19 TABLET BY ity o f 00:00: MOUTH [place] 00 THREE Medical TIMES A Branch DAY NEEDED FOR PAIN BACLOFEN 10 2022-0 Yes [id number] TAKE ONE [facility] mg tablet 4-19 TABLET BY ity o f 00:00: MOUTH [place] 00 THREE Medical TIMES A Branch DAY NEEDED FOR PAIN BACLOFEN 10 2023-0 Yes [id number] TAKE ONE [facility] mg tablet 4-19 TABLET BY ity o f 00:00: MOUTH [place] 00 THREE Medical TIMES A Branch DAY NEEDED FOR PAIN BACLOFEN 10 2023-0 Yes [id number] TAKE ONE [facility] mg tablet 4-19 TABLET BY ity o f 00:00: MOUTH [place] 00 THREE Medical TIMES A Branch DAY NEEDED FOR PAIN BACLOFEN 10 3-0 Yes [id number] TAKE ONE [facility] mg tablet 4-19 TABLET BY ity o f 00:00: MOUTH [place] 00 THREE Medical TIMES A Branch DAY NEEDED FOR PAIN BACLOFEN 10 3-0 Yes [id number] TAKE ONE [facility] mg tablet 4-19 TABLET BY ity o f 00:00: MOUTH [place] 00 THREE Medical TIMES A Branch DAY NEEDED FOR PAIN BACLOFEN 10 3-0 Yes [id number] TAKE ONE [facility] mg tablet 4-19 TABLET BY ity o f 00:00: MOUTH [place] 00 THREE Medical TIMES A Branch DAY NEEDED FOR PAIN BACLOFEN 10 3-0 Yes [id number] TAKE ONE [facility] mg tablet 4-19 TABLET BY ity o f 00:00: MOUTH [place] 00 THREE Medical TIMES A Branch DAY NEEDED FOR PAIN BACLOFEN 10 3-0 Yes [id number] TAKE ONE [facility] mg tablet 4-19 TABLET BY ity o f 00:00: MOUTH [place] 00 THREE Medical TIMES A Branch DAY NEEDED FOR PAIN BACLOFEN 10 3-0 Yes [id number] TAKE ONE [facility] mg tablet 4-19 TABLET BY ity o f 00:00: MOUTH [place] 00 THREE Medical TIMES A Branch DAY NEEDED FOR PAIN BACLOFEN 10 2023-0 Yes [id number] TAKE ONE [facility] mg tablet 4-19 TABLET BY ity o f 00:00: MOUTH [place] 00 THREE Medical TIMES A Branch DAY NEEDED FOR PAIN BACLOFEN 10 2023-0 Yes [id number] TAKE ONE [facility] mg tablet 4-19 TABLET BY ity o f 00:00: MOUTH [place] 00 THREE Medical TIMES A Branch DAY NEEDED FOR PAIN BACLOFEN 10 2023-0 Yes [id number] TAKE ONE [facility] mg tablet 4-19 TABLET BY ity o f 00:00: MOUTH [place] 00 THREE Medical TIMES A Branch DAY NEEDED FOR PAIN BACLOFEN 10 2023-0 Yes [id number] TAKE ONE [facility] mg tablet 4-19 TABLET BY ity o f 00:00: MOUTH [place] 00 THREE Medical TIMES A Branch DAY NEEDED FOR PAIN BACLOFEN 10 2022- No [id number] TAKE ONE [facility] mg tablet 4-19 08-08 TABLET BY ity of 00:00: 00:00 MOUTH [place] 00 :00 THREE Medical TIMES A Branch DAY NEEDED FOR PAIN ERGOCALCIFE 2023-0 Yes [id number] TAKE 1 [facility] ROL, 4-03 CAPSULE BY ity of VITAMIN D2, 00:00: MOUTH ONCE [place] 1,250 mcg 00 A WEEK Medical (50,000 Branch unit) capsule ERGOCALCIFE 2023-0 Yes [id number] TAKE 1 [facility] ROL, 4-03 CAPSULE BY ity of VITAMIN D2, 00:00: MOUTH ONCE [place] 1,250 mcg 00 A WEEK Medical (50,000 Branch unit) capsule ERGOCALCIFE 2023-0 Yes [id number] TAKE 1 [facility] ROL, 4-03 CAPSULE BY ity of VITAMIN D2, 00:00: MOUTH ONCE [place] 1,250 mcg 00 A WEEK Medical (50,000 Branch unit) capsule ERGOCALCIFE 2023-0 Yes [id number] TAKE 1 [facility] ROL, 4-03 CAPSULE BY ity of VITAMIN D2, 00:00: MOUTH ONCE [place] 1,250 mcg 00 A WEEK Medical (50,000 Branch unit) capsule ERGOCALCIFE 2023-0 Yes [id number] TAKE 1 [facility] ROL, 4-03 CAPSULE BY ity of VITAMIN D2, 00:00: MOUTH ONCE [place] 1,250 mcg 00 A WEEK Medical (50,000 Branch unit) capsule ERGOCALCIFE 2023-0 Yes [id number] TAKE 1 [facility] ROL, 4-03 CAPSULE BY ity of VITAMIN D2, 00:00: MOUTH ONCE [place] 1,250 mcg 00 A WEEK Medical (50,000 Branch unit) capsule ERGOCALCIFE 2023-0 Yes [id number] TAKE 1 [facility] ROL, 4-03 CAPSULE BY ity of VITAMIN D2, 00:00: MOUTH ONCE [place] 1,250 mcg 00 A WEEK Medical (50,000 Branch unit) capsule ERGOCALCIFE 2023-0 Yes [id number] TAKE 1 [facility] ROL, 4-03 CAPSULE BY ity of VITAMIN D2, 00:00: MOUTH ONCE [place] 1,250 mcg 00 A WEEK Medical (50,000 Branch unit) capsule ERGOCALCIFE 2023-0 Yes [id number] TAKE 1 [facility] ROL, 4-03 CAPSULE BY ity of VITAMIN D2, 00:00: MOUTH ONCE [place] 1,250 mcg 00 A WEEK Medical (50,000 Branch unit) capsule ERGOCALCIFE 2023-0 Yes [id number] TAKE 1 [facility] ROL, 4-03 CAPSULE BY ity of VITAMIN D2, 00:00: MOUTH ONCE [place] 1,250 mcg 00 A WEEK Medical (50,000 Branch unit) capsule ERGOCALCIFE 2023-0 Yes [id number] TAKE 1 [facility] ROL, 4-03 CAPSULE BY ity of VITAMIN D2, 00:00: MOUTH ONCE [place] 1,250 mcg 00 A WEEK Medical (50,000 Branch unit) capsule ERGOCALCIFE 2023-0 Yes [id number] TAKE 1 [facility] ROL, 4-03 CAPSULE BY ity of VITAMIN D2, 00:00: MOUTH ONCE [place] 1,250 mcg 00 A WEEK Medical (50,000 Branch unit) capsule ERGOCALCIFE 2023-0 Yes [id number] TAKE 1 [facility] ROL, 4-03 CAPSULE BY ity of VITAMIN D2, 00:00: MOUTH ONCE [place] 1,250 mcg 00 A WEEK Medical (50,000 Branch unit) capsule ERGOCALCIFE 2023-0 Yes [id number] TAKE 1 [facility] ROL, 4-03 CAPSULE BY ity of VITAMIN D2, 00:00: MOUTH ONCE [place] 1,250 mcg 00 A WEEK Medical (50,000 Branch unit) capsule ERGOCALCIFE 2023-0 Yes [id number] TAKE 1 [facility] ROL, 4-03 CAPSULE BY ity of VITAMIN D2, 00:00: MOUTH ONCE [place] 1,250 mcg 00 A WEEK Medical (50,000 Branch unit) capsule ERGOCALCIFE 2023-0 Yes [id number] TAKE 1 [facility] ROL, 4-03 CAPSULE BY ity of VITAMIN D2, 00:00: MOUTH ONCE [place] 1,250 mcg 00 A WEEK Medical (50,000 Branch unit) capsule ERGOCALCIFE 2023-0 Yes [id number] TAKE 1 [facility] ROL, 4-03 CAPSULE BY ity of VITAMIN D2, 00:00: MOUTH ONCE [place] 1,250 mcg 00 A WEEK Medical (50,000 Branch unit) capsule ERGOCALCIFE 2023-0 Yes [id number] TAKE 1 [facility] ROL, 4-03 CAPSULE BY ity of VITAMIN D2, 00:00: MOUTH ONCE [place] 1,250 mcg 00 A WEEK Medical (50,000 Branch unit) capsule ERGOCALCIFE 2023-0 Yes [id number] TAKE 1 [facility] ROL, 4-03 CAPSULE BY ity of VITAMIN D2, 00:00: MOUTH ONCE [place] 1,250 mcg 00 A WEEK Medical (50,000 Branch unit) capsule ERGOCALCIFE 2023-0 Yes [id number] TAKE 1 [facility] ROL, 4-03 CAPSULE BY ity of VITAMIN D2, 00:00: MOUTH ONCE [place] 1,250 mcg 00 A WEEK Medical (50,000 Branch unit) capsule ERGOCALCIFE 2023-0 Yes [id number] TAKE 1 [facility] ROL, 4-03 CAPSULE BY ity of VITAMIN D2, 00:00: MOUTH ONCE [place] 1,250 mcg 00 A WEEK Medical (50,000 Branch unit) capsule ERGOCALCIFE 2023-0 Yes [id number] TAKE 1 [facility] ROL, 4-03 CAPSULE BY ity of VITAMIN D2, 00:00: MOUTH ONCE [place] 1,250 mcg 00 A WEEK Medical (50,000 Branch unit) capsule ERGOCALCIFE 2023-0 Yes [id number] TAKE 1 [facility] ROL, 4-03 CAPSULE BY ity of VITAMIN D2, 00:00: MOUTH ONCE [place] 1,250 mcg 00 A WEEK Medical (50,000 Branch unit) capsule ERGOCALCIFE 2023-0 Yes [id number] TAKE 1 [facility] ROL, 4-03 CAPSULE BY ity of VITAMIN D2, 00:00: MOUTH ONCE [place] 1,250 mcg 00 A WEEK Medical (50,000 Branch unit) capsule ERGOCALCIFE 2023-0 Yes [id number] TAKE 1 [facility] ROL, 4-03 CAPSULE BY ity of VITAMIN D2, 00:00: MOUTH ONCE [place] 1,250 mcg 00 A WEEK Medical (50,000 Branch unit) capsule ERGOCALCIFE 2023-0 Yes [id number] TAKE 1 [facility] ROL, 4-03 CAPSULE BY ity of VITAMIN D2, 00:00: MOUTH ONCE [place] 1,250 mcg 00 A WEEK Medical (50,000 Branch unit) capsule ERGOCALCIFE 2023-0 Yes [id number] TAKE 1 [facility] ROL, 4-03 CAPSULE BY ity of VITAMIN D2, 00:00: MOUTH ONCE [place] 1,250 mcg 00 A WEEK Medical (50,000 Branch unit) capsule ERGOCALCIFE 2023-0 Yes [id number] TAKE 1 [facility] ROL, 4-03 CAPSULE BY ity of VITAMIN D2, 00:00: MOUTH ONCE [place] 1,250 mcg 00 A WEEK Medical (50,000 Branch unit) capsule ERGOCALCIFE 2023-0 Yes [id number] TAKE 1 [facility] ROL, 4-03 CAPSULE BY ity of VITAMIN D2, 00:00: MOUTH ONCE [place] 1,250 mcg 00 A WEEK Medical (50,000 Branch unit) capsule ERGOCALCIFE 2023-0 Yes [id number] TAKE 1 [facility] ROL, 4-03 CAPSULE BY ity of VITAMIN D2, 00:00: MOUTH ONCE [place] 1,250 mcg 00 A WEEK Medical (50,000 Branch unit) capsule ERGOCALCIFE 2023-0 Yes [id number] TAKE 1 [facility] ROL, 4-03 CAPSULE BY ity of VITAMIN D2, 00:00: MOUTH ONCE [place] 1,250 mcg 00 A WEEK Medical (50,000 Branch unit) capsule ERGOCALCIFE 2023-0 Yes [id number] TAKE 1 [facility] ROL, 4-03 CAPSULE BY ity of VITAMIN D2, 00:00: MOUTH ONCE [place] 1,250 mcg 00 A WEEK Medical (50,000 Branch unit) capsule ERGOCALCIFE 2023-0 Yes [id number] TAKE 1 [facility] ROL, 4-03 CAPSULE BY ity of VITAMIN D2, 00:00: MOUTH ONCE [place] 1,250 mcg 00 A WEEK Medical (50,000 Branch unit) capsule ERGOCALCIFE 2023-0 Yes [id number] TAKE 1 [facility] ROL, 4-03 CAPSULE BY ity of VITAMIN D2, 00:00: MOUTH ONCE [place] 1,250 mcg 00 A WEEK Medical (50,000 Branch unit) capsule ERGOCALCIFE 2023-0 Yes [id number] TAKE 1 [facility] ROL, 4-03 CAPSULE BY ity of VITAMIN D2, 00:00: MOUTH ONCE [place] 1,250 mcg 00 A WEEK Medical (50,000 Branch unit) capsule ERGOCALCIFE 2023-0 Yes [id number] TAKE 1 [facility] ROL, 4-03 CAPSULE BY ity of VITAMIN D2, 00:00: MOUTH ONCE [place] 1,250 mcg 00 A WEEK Medical (50,000 Branch unit) capsule ERGOCALCIFE 2023-0 Yes [id number] TAKE 1 [facility] ROL, 4-03 CAPSULE BY ity of VITAMIN D2, 00:00: MOUTH ONCE [place] 1,250 mcg 00 A WEEK Medical (50,000 Branch unit) capsule ERGOCALCIFE 2023-0 Yes [id number] TAKE 1 [facility] ROL, 4-03 CAPSULE BY ity of VITAMIN D2, 00:00: MOUTH ONCE [place] 1,250 mcg 00 A WEEK Medical (50,000 Branch unit) capsule ERGOCALCIFE 2023-0 Yes [id number] TAKE 1 [facility] ROL, 4-03 CAPSULE BY ity of VITAMIN D2, 00:00: MOUTH ONCE [place] 1,250 mcg 00 A WEEK Medical (50,000 Branch unit) capsule ERGOCALCIFE 2023-0 Yes [id number] TAKE 1 [facility] ROL, 4-03 CAPSULE BY ity of VITAMIN D2, 00:00: MOUTH ONCE [place] 1,250 mcg 00 A WEEK Medical (50,000 Branch unit) capsule ERGOCALCIFE 2023-0 Yes [id number] TAKE 1 [facility] ROL, 4-03 CAPSULE BY ity of VITAMIN D2, 00:00: MOUTH ONCE [place] 1,250 mcg 00 A WEEK Medical (50,000 Branch unit) capsule ERGOCALCIFE 2023-0 Yes [id number] TAKE 1 [facility] ROL, 4-03 CAPSULE BY ity of VITAMIN D2, 00:00: MOUTH ONCE [place] 1,250 mcg 00 A WEEK Medical (50,000 Branch unit) capsule ERGOCALCIFE 2023-0 Yes [id number] TAKE 1 [facility] ROL, 4-03 CAPSULE BY ity of VITAMIN D2, 00:00: MOUTH ONCE [place] 1,250 mcg 00 A WEEK Medical (50,000 Branch unit) capsule ERGOCALCIFE 2023-0 Yes [id number] TAKE 1 [facility] ROL, 4-03 CAPSULE BY ity of VITAMIN D2, 00:00: MOUTH ONCE [place] 1,250 mcg 00 A WEEK Medical (50,000 Branch unit) capsule ERGOCALCIFE 2023-0 Yes [id number] TAKE 1 [facility] ROL, 4-03 CAPSULE BY ity of VITAMIN D2, 00:00: MOUTH ONCE [place] 1,250 mcg 00 A WEEK Medical (50,000 Branch unit) capsule ERGOCALCIFE 2023-0 Yes [id number] TAKE 1 [facility] ROL, 4-03 CAPSULE BY ity of VITAMIN D2, 00:00: MOUTH ONCE [place] 1,250 mcg 00 A WEEK Medical (50,000 Branch unit) capsule ERGOCALCIFE 2023-0 Yes [id number] TAKE 1 [facility] ROL, 4-03 CAPSULE BY ity of VITAMIN D2, 00:00: MOUTH ONCE [place] 1,250 mcg 00 A WEEK Medical (50,000 Branch unit) capsule ERGOCALCIFE 2023-0 Yes [id number] TAKE 1 [facility] ROL, 4-03 CAPSULE BY ity of VITAMIN D2, 00:00: MOUTH ONCE [place] 1,250 mcg 00 A WEEK Medical (50,000 Branch unit) capsule ERGOCALCIFE 2023-0 Yes [id number] TAKE 1 [facility] ROL, 4-03 CAPSULE BY ity of VITAMIN D2, 00:00: MOUTH ONCE [place] 1,250 mcg 00 A WEEK Medical (50,000 Branch unit) capsule ERGOCALCIFE 2023-0 Yes [id number] TAKE 1 [facility] ROL, 4-03 CAPSULE BY ity of VITAMIN D2, 00:00: MOUTH ONCE [place] 1,250 mcg 00 A WEEK Medical (50,000 Branch unit) capsule ERGOCALCIFE 2023-0 Yes [id number] TAKE 1 [facility] ROL, 4-03 CAPSULE BY ity of VITAMIN D2, 00:00: MOUTH ONCE [place] 1,250 mcg 00 A WEEK Medical (50,000 Branch unit) capsule ERGOCALCIFE 2023-0 Yes [id number] TAKE 1 [facility] ROL, 4-03 CAPSULE BY ity of VITAMIN D2, 00:00: MOUTH ONCE [place] 1,250 mcg 00 A WEEK Medical (50,000 Branch unit) capsule ERGOCALCIFE 2023-0 Yes [id number] TAKE 1 [facility] ROL, 4-03 CAPSULE BY ity of VITAMIN D2, 00:00: MOUTH ONCE [place] 1,250 mcg 00 A WEEK Medical (50,000 Branch unit) capsule ERGOCALCIFE 2023-0 Yes [id number] TAKE 1 [facility] ROL, 4-03 CAPSULE BY ity of VITAMIN D2, 00:00: MOUTH ONCE [place] 1,250 mcg 00 A WEEK Medical (50,000 Branch unit) capsule ERGOCALCIFE 2023-0 Yes [id number] TAKE 1 [facility] ROL, 4-03 CAPSULE BY ity of VITAMIN D2, 00:00: MOUTH ONCE [place] 1,250 mcg 00 A WEEK Medical (50,000 Branch unit) capsule ERGOCALCIFE 2023-0 Yes [id number] TAKE 1 [facility] ROL, 4-03 CAPSULE BY ity of VITAMIN D2, 00:00: MOUTH ONCE [place] 1,250 mcg 00 A WEEK Medical (50,000 Branch unit) capsule ERGOCALCIFE 2023-0 Yes [id number] TAKE 1 [facility] ROL, 4-03 CAPSULE BY ity of VITAMIN D2, 00:00: MOUTH ONCE [place] 1,250 mcg 00 A WEEK Medical (50,000 Branch unit) capsule ERGOCALCIFE 2023-0 Yes [id number] TAKE 1 [facility] ROL, 4-03 CAPSULE BY ity of VITAMIN D2, 00:00: MOUTH ONCE [place] 1,250 mcg 00 A WEEK Medical (50,000 Branch unit) capsule predniSONE 2023-0 Yes [id number] 5mg Take 1 [facility] 5 mg tablet 2-09 tablet by ity of 00:00: mouth in [place] 00 the Medical morning. Branch predniSONE 2023-0 Yes [id number] 5mg Take 1 [facility] 5 mg tablet 2-09 tablet by ity of 00:00: mouth in [place] 00 the Medical morning. Branch predniSONE 2023-0 Yes [id number] 5mg Take 1 [facility] 5 mg tablet 2-09 tablet by ity of 00:00: mouth in [place] 00 the Medical morning. Branch predniSONE 2023-0 Yes [id number] 5mg Take 1 [facility] 5 mg tablet 2-09 tablet by ity of 00:00: mouth in [place] 00 the Medical morning. Branch predniSONE 2023-0 Yes [id number] 5mg Take 1 [facility] 5 mg tablet 2-09 tablet by ity of 00:00: mouth in [place] 00 the Medical morning. Branch predniSONE 2023-0 Yes [id number] 5mg Take 1 [facility] 5 mg tablet 2-09 tablet by ity of 00:00: mouth in [place] 00 the Medical morning. Branch predniSONE 2023-0 Yes [id number] 5mg Take 1 [facility] 5 mg tablet 2-09 tablet by ity of 00:00: mouth in [place] 00 the Medical morning. Branch predniSONE 2023-0 Yes [id number] 5mg Take 1 [facility] 5 mg tablet 2-09 tablet by ity of 00:00: mouth in [place] 00 the Medical morning. Branch predniSONE 2023-0 Yes [id number] 5mg Take 1 [facility] 5 mg tablet 2-09 tablet by ity of 00:00: mouth in [place] 00 the Medical morning. Branch predniSONE 2023-0 Yes [id number] 5mg Take 1 [facility] 5 mg tablet 2-09 tablet by ity of 00:00: mouth in [place] 00 the Medical morning. Branch predniSONE 2023-0 Yes [id number] 5mg Take 1 [facility] 5 mg tablet 2-09 tablet by ity of 00:00: mouth in [place] 00 the Medical morning. Branch predniSONE 2023-0 Yes [id number] 5mg Take 1 [facility] 5 mg tablet 2-09 tablet by ity of 00:00: mouth in [place] 00 the Medical morning. Branch predniSONE 2023-0 Yes [id number] 5mg Take 1 [facility] 5 mg tablet 2-09 tablet by ity of 00:00: mouth in [place] 00 the Medical morning. Branch predniSONE 3-0 Yes [id number] 5mg Take 1 [facility] 5 mg tablet 2-09 tablet by ity of 00:00: mouth in [place] 00 the Medical morning. Branch predniSONE 3-0 Yes [id number] 5mg Take 1 [facility] 5 mg tablet 2-09 tablet by ity of 00:00: mouth in [place] 00 the Medical morning. Branch predniSONE 3-0 2023- No [id number] 5mg Take 1 [facility] 5 mg tablet 2-09 -18 tablet by it y of 00:00: 00:00 mouth in [place] 00 :00 the Medical morning. Branch benzonatate 2022-0 Yes [id number] 100mg Take 1 [facility] (TESSALON 1-09 capsule by ity of PERLES) 100 00:00: mouth [place] mg capsule 00 every 8 Medica l (eight) Branch hours as needed for Cough. benzonatate 2022-0 Yes [id number] 100mg Take 1 [facility] (TESSALON 1-09 capsule by ity of PERLES) 100 00:00: mouth [place] mg capsule 00 every 8 Medica l (eight) Branch hours as needed for Cough. benzonatate 2022-0 Yes [id number] 100mg Take 1 [facility] (TESSALON 1-09 capsule by ity of PERLES) 100 00:00: mouth [place] mg capsule 00 every 8 Medica l (eight) Branch hours as needed for Cough. benzonatate 2022-0 Yes [id number] 100mg Take 1 [facility] (TESSALON 1-09 capsule by ity of PERLES) 100 00:00: mouth [place] mg capsule 00 every 8 Medica l (eight) Branch hours as needed for Cough. benzonatate 2022-0 Yes [id number] 100mg Take 1 [facility] (TESSALON 1-09 capsule by ity of PERLES) 100 00:00: mouth [place] mg capsule 00 every 8 Medica l (eight) Branch hours as needed for Cough. benzonatate 2022-0 Yes [id number] 100mg Take 1 [facility] (TESSALON 1-09 capsule by ity of PERLES) 100 00:00: mouth [place] mg capsule 00 every 8 Medica l (eight) Branch hours as needed for Cough. benzonatate 2023-0 Yes [id number] 100mg Take 1 [facility] (TESSALON 1-09 capsule by ity of PERLES) 100 00:00: mouth [place] mg capsule 00 every 8 Medica l (eight) Branch hours as needed for Cough. benzonatate 2022-0 Yes [id number] 100mg Take 1 [facility] (TESSALON 1-09 capsule by ity of PERLES) 100 00:00: mouth [place] mg capsule 00 every 8 Medica l (eight) Branch hours as needed for Cough. benzonatate 2022-0 Yes [id number] 100mg Take 1 [facility] (TESSALON 1-09 capsule by ity of PERLES) 100 00:00: mouth [place] mg capsule 00 every 8 Medica l (eight) Branch hours as needed for Cough. benzonatate 2022-0 Yes [id number] 100mg Take 1 [facility] (TESSALON 1-09 capsule by ity of PERLES) 100 00:00: mouth [place] mg capsule 00 every 8 Medica l (eight) Branch hours as needed for Cough. benzonatate 2022-0 Yes [id number] 100mg Take 1 [facility] (TESSALON 1-09 capsule by ity of PERLES) 100 00:00: mouth [place] mg capsule 00 every 8 Medica l (eight) Branch hours as needed for Cough. benzonatate 2022-0 Yes [id number] 100mg Take 1 [facility] (TESSALON 1-09 capsule by ity of PERLES) 100 00:00: mouth [place] mg capsule 00 every 8 Medica l (eight) Branch hours as needed for Cough. benzonatate 2022-0 Yes [id number] 100mg Take 1 [facility] (TESSALON 1-09 capsule by ity of PERLES) 100 00:00: mouth [place] mg capsule 00 every 8 Medica l (eight) Branch hours as needed for Cough. benzonatate 3-0 Yes [id number] 100mg Take 1 [facility] (TESSALON 1-09 capsule by ity of PERLES) 100 00:00: mouth [place] mg capsule 00 every 8 Medica l (eight) Branch hours as needed for Cough. benzonatate 2022-0 Yes [id number] 100mg Take 1 [facility] (TESS[place]ON 1-09 capsule by ity of PERLES) 100 00:00: mouth [place] mg capsule 00 every 8 Medica l (eight) Branch hours as needed for Cough. benzonatate 2022-0 Yes [id number] 100mg Take 1 [facility] (TESS[place]ON 1-09 capsule by ity of PERLES) 100 00:00: mouth [place] mg capsule 00 every 8 Medica l (eight) Branch hours as needed for Cough. benzonatate 2022-0 Yes [id number] 100mg Take 1 [facility] ([place]ESS[place] 1-09 capsule by ity of PERLES) 100 00:00: mouth [place] mg capsule 00 every 8 Medica l (eight) Branch hours as needed for Cough. benzonatate 2022-0 Yes [id number] 100mg Take 1 [facility] (TESSALON 1-09 capsule by ity of PERLES) 100 00:00: mouth [place] mg capsule 00 every 8 Medica l (eight) Branch hours as needed for Cough. benzonatate 2022-0 Yes [id number] 100mg Take 1 [facility] (TESS[place]ON 1-09 capsule by ity of PERLES) 100 00:00: mouth [place] mg capsule 00 every 8 Medica l (eight) Branch hours as needed for Cough. benzonatate 2022-0 Yes [id number] 100mg Take 1 [facility] (TESS[place]ON 1-09 capsule by ity of PERLES) 100 00:00: mouth [place] mg capsule 00 every 8 Medica l (eight) Branch hours as needed for Cough. benzonatate 2022-0 Yes [id number] 100mg Take 1 [facility] ([place]ESS[place]ON 1-09 capsule by ity of PERLES) 100 00:00: mouth [place] mg capsule 00 every 8 Medica l (eight) Branch hours as needed for Cough. benzonatate 2022-0 Yes [id number] 100mg Take 1 [facility] ([place]ESS[place]ON 1-09 capsule by ity of PERLES) 100 00:00: mouth [place] mg capsule 00 every 8 Medica l (eight) Branch hours as needed for Cough. benzonatate 2022-0 Yes [id number] 100mg Take 1 [facility] (TESS[place] 1-09 capsule by ity of PERLES) 100 00:00: mouth [place] mg capsule 00 every 8 Medica l (eight) Branch hours as needed for Cough. benzonatate 2022-0 Yes [id number] 100mg Take 1 [facility] (TESS[place]ON 1-09 capsule by ity of PERLES) 100 00:00: mouth [place] mg capsule 00 every 8 Medica l (eight) Branch hours as needed for Cough. benzonatate 3-0 Yes [id number] 100mg Take 1 [facility] ([facility] 1-09 capsule by [facility]) 100 00:00: mouth [place] mg capsule 00 every 8 [facility] ([facility] hours as needed for Cough. benzonatate 2022-0 Yes [id number] 100mg Take 1 [facility] ([facility] 1-09 capsule by [facility]) 100 00:00: mouth [place] mg capsule 00 every 8 [facility] ([facility] hours as needed for Cough. benzonatate 2022-0 Yes [id number] 100mg Take 1 [facility] ([facility] 1-09 capsule by [facility]) 100 00:00: mouth [place] mg capsule 00 every 8 [facility] ([facility] hours as needed for Cough. benzonatate 2022-0 Yes [id number] 100mg Take 1 [facility] ([facility] 1-09 capsule by [facility]) 100 00:00: mouth [place] mg capsule 00 every 8 [facility] ([facility] hours as needed for Cough. benzonatate 2022-0 Yes [id number] 100mg Take 1 [facility] ([facility] 1-09 capsule by [facility]) 100 00:00: mouth [place] mg capsule 00 every 8 [facility] ([facility] hours as needed for Cough. benzonatate 2022-0 Yes [id number] 100mg Take 1 [facility] ([facility] 1-09 capsule by [facility]) 100 00:00: mouth [place] mg capsule 00 every 8 [facility] ([facility]) [facility] hours as needed for Cough. benzonatate 2022-0 Yes [id number] 100mg Take 1 [facility] ([facility] 1-09 capsule by [facility]) 100 00:00: mouth [place] mg capsule 00 every 8 [facility] ([facility]) [facility] hours as needed for Cough. benzonatate 3-0 Yes [id number] 100mg Take 1 [facility] (TESSALON 1-09 capsule by ity of PERLES) 100 00:00: mouth [place] mg capsule 00 every 8 Medica l (eight) Branch hours as needed for Cough. benzonatate 2022-0 Yes [id number] 100mg Take 1 [facility] (TESSALON 1-09 capsule by ity of PERLES) 100 00:00: mouth [place] mg capsule 00 every 8 Medica l (eight) Branch hours as needed for Cough. benzonatate 2022-0 Yes [id number] 100mg Take 1 [facility] (TESSALON 1-09 capsule by ity of PERLES) 100 00:00: mouth [place] mg capsule 00 every 8 Medica l (eight) Branch hours as needed for Cough. benzonatate 2022-0 Yes [id number] 100mg Take 1 [facility] (TESSALON 1-09 capsule by ity of PERLES) 100 00:00: mouth [place] mg capsule 00 every 8 Medica l (eight) Branch hours as needed for Cough. benzonatate 2022-0 Yes [id number] 100mg Take 1 [facility] (TESSALON 1-09 capsule by ity of PERLES) 100 00:00: mouth [place] mg capsule 00 every 8 Medica l (eight) Branch hours as needed for Cough. benzonatate 2022-0 Yes [id number] 100mg Take 1 [facility] (TESSALON 1-09 capsule by ity of PERLES) 100 00:00: mouth [place] mg capsule 00 every 8 Medica l (eight) Branch hours as needed for Cough. benzonatate 2022-0 Yes [id number] 100mg Take 1 [facility] (TESSALON 1-09 capsule by ity of PERLES) 100 00:00: mouth [place] mg capsule 00 every 8 Medica l (eight) Branch hours as needed for Cough. benzonatate 2022-0 Yes [id number] 100mg Take 1 [facility] (TESSALON 1-09 capsule by ity of PERLES) 100 00:00: mouth [place] mg capsule 00 every 8 Medica l (eight) Branch hours as needed for Cough. benzonatate 2022-0 Yes [id number] 100mg Take 1 [facility] (TESSALON 1-09 capsule by ity of PERLES) 100 00:00: mouth [place] mg capsule 00 every 8 Medica l (eight) Branch hours as needed for Cough. benzonatate 2022-0 Yes [id number] 100mg Take 1 [facility] (TESSALON 1-09 capsule by ity of PERLES) 100 00:00: mouth [place] mg capsule 00 every 8 Medica l (eight) Branch hours as needed for Cough. benzonatate 2022-0 Yes [id number] 100mg Take 1 [facility] (TESSALON 1-09 capsule by ity of PERLES) 100 00:00: mouth [place] mg capsule 00 every 8 Medica l (eight) Branch hours as needed for Cough. benzonatate 2022-0 Yes [id number] 100mg Take 1 [facility] (TESSALON 1-09 capsule by ity of PERLES) 100 00:00: mouth [place] mg capsule 00 every 8 Medica l (eight) Branch hours as needed for Cough. benzonatate 2022-0 Yes [id number] 100mg Take 1 [facility] (TESSALON 1-09 capsule by ity of PERLES) 100 00:00: mouth [place] mg capsule 00 every 8 Medica l (eight) Branch hours as needed for Cough. benzonatate 2022-0 Yes [id number] 100mg Take 1 [facility] (TESSALON 1-09 capsule by ity of PERLES) 100 00:00: mouth [place] mg capsule 00 every 8 Medica l (eight) Branch hours as needed for Cough. benzonatate 2022-0 Yes [id number] 100mg Take 1 [facility] (TESSALON 1-09 capsule by ity of PERLES) 100 00:00: mouth [place] mg capsule 00 every 8 Medica l (eight) Branch hours as needed for Cough. benzonatate 2022-0 Yes [id number] 100mg Take 1 [facility] (TESSALON 1-09 capsule by ity of PERLES) 100 00:00: mouth [place] mg capsule 00 every 8 Medica l (eight) Branch hours as needed for Cough. benzonatate 2022-0 Yes [id number] 100mg Take 1 [facility] (TESSALON 1-09 capsule by ity of PERLES) 100 00:00: mouth [place] mg capsule 00 every 8 Medica l (eight) Branch hours as needed for Cough. benzonatate 2022-0 Yes [id number] 100mg Take 1 [facility] (TESSALON 1-09 capsule by ity of PERLES) 100 00:00: mouth [place] mg capsule 00 every 8 Medica l (eight) Branch hours as needed for Cough. benzonatate 2022-0 Yes [id number] 100mg Take 1 [facility] (TESSALON 1-09 capsule by ity of PERLES) 100 00:00: mouth [place] mg capsule 00 every 8 Medica l (eight) Branch hours as needed for Cough. benzonatate 2022-0 Yes [id number] 100mg Take 1 [facility] (TESSALON 1-09 capsule by ity of PERLES) 100 00:00: mouth [place] mg capsule 00 every 8 Medica l (eight) Branch hours as needed for Cough. benzonatate 2022-0 Yes [id number] 100mg Take 1 [facility] (TESSALON 1-09 capsule by ity of PERLES) 100 00:00: mouth [place] mg capsule 00 every 8 Medica l (eight) Branch hours as needed for Cough. benzonatate 2022-0 Yes [id number] 100mg Take 1 [facility] (TESSALON 1-09 capsule by ity of PERLES) 100 00:00: mouth [place] mg capsule 00 every 8 Medica l (eight) Branch hours as needed for Cough. benzonatate 2022-0 Yes [id number] 100mg Take 1 [facility] (TESSALON 1-09 capsule by ity of PERLES) 100 00:00: mouth [place] mg capsule 00 every 8 Medica l (eight) Branch hours as needed for Cough. benzonatate 2022-0 Yes [id number] 100mg Take 1 [facility] (TESSALON 1-09 capsule by ity of PERLES) 100 00:00: mouth [place] mg capsule 00 every 8 Medica l (eight) Branch hours as needed for Cough. benzonatate 2022-0 Yes [id number] 100mg Take 1 [facility] (TESSALON 1-09 capsule by ity of PERLES) 100 00:00: mouth [place] mg capsule 00 every 8 Medica l (eight) Branch hours as needed for Cough. benzonatate 2022-0 Yes [id number] 100mg Take 1 [facility] (TESSALON 1-09 capsule by ity of PERLES) 100 00:00: mouth [place] mg capsule 00 every 8 Medica l (eight) Branch hours as needed for Cough. benzonatate 2022-0 Yes [id number] 100mg Take 1 [facility] (TESSALON 1-09 capsule by ity of PERLES) 100 00:00: mouth [place] mg capsule 00 every 8 Medica l (eight) Branch hours as needed for Cough. benzonatate 2022-0 Yes [id number] 100mg Take 1 [facility] (TESSALON 1-09 capsule by ity of PERLES) 100 00:00: mouth [place] mg capsule 00 every 8 Medica l (eight) Branch hours as needed for Cough. benzonatate 2022-0 Yes [id number] 100mg Take 1 [facility] (TESSALON 1-09 capsule by ity of PERLES) 100 00:00: mouth [place] mg capsule 00 every 8 Medica l (eight) Branch hours as needed for Cough. benzonatate 2022-0 Yes [id number] 100mg Take 1 [facility] (TESSALON 1-09 capsule by ity of PERLES) 100 00:00: mouth [place] mg capsule 00 every 8 Medica l (eight) Branch hours as needed for Cough. benzonatate 2022-0 Yes [id number] 100mg Take 1 [facility] (TESSALON 1-09 capsule by ity of PERLES) 100 00:00: mouth [place] mg capsule 00 every 8 Medica l (eight) Branch hours as needed for Cough. benzonatate 2022-0 Yes [id number] 100mg Take 1 [facility] (TESSALON 1-09 capsule by ity of PERLES) 100 00:00: mouth [place] mg capsule 00 every 8 Medica l (eight) Branch hours as needed for Cough. benzonatate 2022-0 Yes [id number] 100mg Take 1 [facility] (TESSALON 1-09 capsule by ity of PERLES) 100 00:00: mouth [place] mg capsule 00 every 8 Medica l (eight) Branch hours as needed for Cough. benzonatate 2022-0 Yes [id number] 100mg Take 1 [facility] (TESSALON 1-09 capsule by ity of PERLES) 100 00:00: mouth [place] mg capsule 00 every 8 Medica l (eight) Branch hours as needed for Cough. benzonatate 2022-0 Yes [id number] 100mg Take 1 [facility] (TESSALON 1-09 capsule by ity of PERLES) 100 00:00: mouth [place] mg capsule 00 every 8 Medica l (eight) Branch hours as needed for Cough. benzonatate 2022-0 Yes [id number] 100mg Take 1 [facility] (TESSALON 1-09 capsule by ity of PERLES) 100 00:00: mouth [place] mg capsule 00 every 8 Medica l (eight) Branch hours as needed for Cough. benzonatate 2022-0 Yes [id number] 100mg Take 1 [facility] (TESSALON 1-09 capsule by ity of PERLES) 100 00:00: mouth [place] mg capsule 00 every 8 Medica l (eight) Branch hours as needed for Cough. benzonatate 2022-0 Yes [id number] 100mg Take 1 [facility] (TESSALON 1-09 capsule by ity of PERLES) 100 00:00: mouth [place] mg capsule 00 every 8 Medica l (eight) Branch hours as needed for Cough. benzonatate 2022-0 Yes [id number] 100mg Take 1 [facility] (TESSALON 1-09 capsule by ity of PERLES) 100 00:00: mouth [place] mg capsule 00 every 8 Medica l (eight) Branch hours as needed for Cough. benzonatate 2022-0 Yes [id number] 100mg Take 1 [facility] (TESSALON 1-09 capsule by ity of PERLES) 100 00:00: mouth [place] mg capsule 00 every 8 Medica l (eight) Branch hours as needed for Cough. benzonatate 2022-0 Yes [id number] 100mg Take 1 [facility] (TESSALON 1-09 capsule by ity of PERLES) 100 00:00: mouth [place] mg capsule 00 every 8 Medica l (eight) Branch hours as needed for Cough. benzonatate 2022-0 Yes [id number] 100mg Take 1 [facility] (TESSALON 1-09 capsule by ity of PERLES) 100 00:00: mouth [place] mg capsule 00 every 8 Medica l (eight) Branch hours as needed for Cough. benzonatate 2022-0 Yes [id number] 100mg Take 1 [facility] (TESSALON 1-09 capsule by ity of PERLES) 100 00:00: mouth [place] mg capsule 00 every 8 Medica l (eight) Branch hours as needed for Cough. benzonatate 2022-0 Yes [id number] 100mg Take 1 [facility] (TESSALON 1-09 capsule by ity of PERLES) 100 00:00: mouth [place] mg capsule 00 every 8 Medica l (eight) Branch hours as needed for Cough. benzonatate 2022-0 Yes [id number] 100mg Take 1 [facility] (TESSALON 1-09 capsule by ity of PERLES) 100 00:00: mouth [place] mg capsule 00 every 8 Medica l (eight) Branch hours as needed for Cough. benzonatate 2022-0 Yes [id number] 100mg Take 1 [facility] (TESSALON 1-09 capsule by ity of PERLES) 100 00:00: mouth [place] mg capsule 00 every 8 Medica l (eight) Branch hours as needed for Cough. benzonatate 0 Yes [id number] 100mg Take 1 [facility] (TESSALON 1-09 capsule by ity of PERLES) 100 00:00: mouth [place] mg capsule 00 every 8 Medica l (eight) Branch hours as needed for Cough. benzonatate 0 Yes [id number] 100mg Take 1 [facility] (TESSALON 1-09 capsule by ity of PERLDipJar) 100 00:00: mouth [place] mg capsule 00 every 8 Medica l (eight) Branch hours as needed for Cough. benzonatate 0 Yes [id number] 100mg Take 1 [facility] (TESSALON 1-09 capsule by ity of PERLDipJar) 100 00:00: mouth [place] mg capsule 00 every 8 Medica l (eight) Branch hours as needed for Cough. benzonatate 0 Yes [id number] 100mg Take 1 [facility] (TESSALON 1-09 capsule by ity of PERLDipJar) 100 00:00: mouth [place] mg capsule 00 every 8 Medica l (eight) Branch hours as needed for Cough. benzonatate 0 Yes [id number] 100mg Take 1 [facility] (TESSALON 1-09 capsule by ity of PERLDipJar) 100 00:00: mouth [place] mg capsule 00 every 8 Medica l (eight) Branch hours as needed for Cough. cloNIDine 2022- No [id number] .2mg Un renetta (CATAPRES) 03-08 ity of tablet 0.2 22:00: 21:21 [place] mg 00 :00 Medical Branch cloNIDine 2022- No [id number] .2mg 0.2 mg, [facility] (CATAPRES) 03-08 Oral, ity of tablet 0.2 22:00: 21:21 ONCE, 1 [place] as mg 00 :00 dose, On Medical [place] 03/08/22 Branch at 1600, Routine cloNIDine 2022- No [id number] .2mg Un renetta (CATAPRES) 03-08 ity of tablet 0.2 22:00: 21:21 [place] mg 00 :00 Medical Branch cloNIDine 2022- No [id number] .2mg 0.2 mg, [facility] (CATAPRES) 03-08 Oral, ity of tablet 0.2 22:00: 21:21 ONCE, 1 [place] as mg 00 :00 dose, On Medical [place] 03/08/22 Branch at 1600, Routine bumetanide 2022- No 1mg Take 1 mg U nivers 1 mg tablet 03-08 by mouth ity of 15:30: 00:00 in the [place] 31 :00 morning. Medical Indication Branch s: reports kidney Dr Rx, ~2 mths ago bumetanide 2022-2022- No 1mg Take 1 mg U nivers 1 mg tablet 03-08 by mouth ity of 15:30: 00:00 in the [place] 31 :00 morning. Medical Indication Branch s: reports kidney Dr Rx, ~2 mths ago bumetanide 2022- No 1mg Take 1 mg U nivers 1 mg tablet 03-08 by mouth ity of 15:30: 00:00 in the [place] 31 :00 morning. Medical Indication Branch s: reports kidney Dr Rx, ~2 mths ago bumetanide 2022-2022- No 1mg Take 1 mg U nivers 1 mg tablet 03-08 by mouth ity of 15:30: 00:00 in the [place] 31 :00 morning. Medical Indication Branch s: reports kidney Dr Rx, ~2 mths ago levothyroxi Yes [id number] 150ug Take 1 [facility] ne 150 mcg 05 tablet by ity of tablet 00:00: mouth [place] 00 every Medical morning. Branch tamsulosin Yes [id number] .4mg Take 1 [facility] 0.4 mg 24 03-08 9102 capsule by ity of hr capsule 00:00: mouth in [place] as 00 the Medical morning. Branch budesonide Yes [id number] .5mg Inhale 2 [facility] 0.5 mg/2 mL 1-05 mL in the ity of nebulizer 00:00: morning [place] solution 00 and 2 mL Medical in the Branch evening. traZODone 2023-0 Yes [id number] 50mg Take 1 U nivers 50 mg 1-05 tablet by ity of tablet 00:00: mouth at [place] 00 bedtime. Medical Branch doxepin 25 Yes [id number] 25mg Take 1 [facility] mg capsule 1-05 capsule by ity of 00:00: mouth at [place] 00 bedtime. Medical Branch glipiZIDE Yes [id number] 2.5mg Take 1 U nivers XL 2.5 [...] Dr Rx, ~2 mths ago arformotero Yes [id number] 15ug Use 2 mL [facility] L 15 mcg/2 1-05 as ity of mL 00:00: directed [place] nebulizer 00 in the Medical solution morning Branch and 2 mL in the evening. ipratropium Yes [id number] .5mg Inhale 2.5 [facility] 0.02 % 1-05 mL every 4 ity of nebulizer 00:00: (four) [place] solution 00 hours as Medical needed for Branch Wheezing or Shortness of Breath. albuterol Yes [id number] 2{puff} Inhale 2 [facility] 90 1-05 Puffs ity of mcg/actuati 00:00: every 6 [place] as on inhaler 00 (six) Medical hours as Branch needed for Wheezing or Shortness of Breath. albuterol Yes [id number] 2.5mg Inhale 3 [facility] 2.5 mg /3 1-05 mL every 2 ity of mL (0.083 00:00: (two) [place] %) 00 hours as Medical nebulizer needed for Bran ch solution Shortness of Breath or Wheezing. cloNIDine Yes [id number] .2mg Take 1 U nivers 0.2 mg 1-05 tablet by ity of tablet 00:00: mouth 3 [place] 00 (three) Medical times Branch daily as needed (Uncontrol led Hypertensi on). Take 1 Tab if BP > 150/90 NIFEdipine Yes [id number] 30mg Take 1 U nivers ER 30 mg 1-05 tablet by ity of tablet 00:00: mouth in [place] 00 the Medical morning. Branch levothyroxi 0 Yes [id number] 150ug Take 1 [facility] ne 150 mcg 1-05 tablet by ity of tablet 00:00: mouth [place] 00 every Medical morning. Branch tamsulosin Yes [id number] .4mg Take 1 [facility] 0.4 mg 24 1-05 9102 capsule by ity of hr capsule 00:00: mouth in [place] as 00 the Medical morning. Branch budesonide Yes [id number] .5mg Inhale 2 [facility] 0.5 mg/2 mL 1-05 mL in the ity of nebulizer 00:00: morning [place] solution 00 and 2 mL Medical in the Branch evening. traZODone Yes [id number] 50mg Take 1 U nivers 50 mg 1-05 tablet by ity of tablet 00:00: mouth at [place] [address] bedtime. Medical Branch doxepin 25 0 Yes [id number] 25mg Take 1 [facility] mg capsule 1-05 capsule by ity of 00:00: mouth at [place] [address] bedtime. Medical Branch glipiZIDE 0 Yes [id number] 2.5mg Take 1 U nivers XL 2.5 mg 1-05 tablet by ity o f 24 hr 00:00: mouth in [place] tablet 00 the Medical morning Branch and 1 tablet in the evening. bumetanide Yes 1mg Take 1 Unive rs 1 mg tablet 1-05 tablet by ity of 00:00: mouth [place] 00 every Medical morning Branch and evening. Indication s: reports kidney Dr Rx, ~2 mths ago arformotero 0 Yes [id number] 15ug Use 2 mL [facility] L 15 mcg/2 1-05 as ity of mL 00:00: directed [place] nebulizer 00 in the Medical solution morning Branch and 2 mL in the evening. ipratropium 0 Yes [id number] .5mg Inhale 2.5 [facility] 0.02 % 1-05 mL every 4 ity of nebulizer 00:00: (four) [place] solution 00 hours as Medical needed for Branch Wheezing or Shortness of Breath. albuterol 2023-0 Yes [id number] 2{puff} Inhale 2 [facility] 90 1-05 Puffs ity of mcg/actuati 00:00: every 6 [place] as on inhaler 00 (six) Medical hours as Branch needed for Wheezing or Shortness of Breath. albuterol Yes [id number] 2.5mg Inhale 3 [facility] 2.5 mg /3 1-05 mL every 2 ity of mL (0.083 00:00: (two) [place] %) 00 hours as Medical nebulizer needed for Bran ch solution Shortness of Breath or Wheezing. cloNIDine Yes [id number] .2mg Take 1 U nivers 0.2 mg 1-05 tablet by ity of tablet 00:00: mouth 3 [place] 00 (three) Medical times Branch daily as needed (Uncontrol led Hypertensi on). Take 1 Tab if BP > 150/90 NIFEdipine 0 Yes [id number] 30mg Take 1 U nivers ER 30 mg 1-05 tablet by ity of tablet 00:00: mouth in [place] 00 the Medical morning. Branch levothyroxi Yes [id number] 150ug Take 1 [facility] ne 150 mcg 1-05 tablet by ity of tablet 00:00: mouth [place] 00 every Medical morning. Branch tamsulosin Yes [id number] .4mg Take 1 [facility] 0.4 mg 24 1-05 9102 capsule by ity of hr capsule 00:00: mouth in [place] as 00 the Medical morning. Branch budesonide Yes [id number] .5mg Inhale 2 [facility] 0.5 mg/2 mL 1-05 mL in the ity of nebulizer 00:00: morning [place] solution 00 and 2 mL Medical in the Branch evening. traZODone 0 Yes [id number] 50mg Take 1 U nivers 50 mg 1-05 tablet by ity of tablet 00:00: mouth at [place] 00 bedtime. Medical Branch doxepin 25 0 Yes [id number] 25mg Take 1 [facility] mg capsule 1-05 capsule by ity of 00:00: mouth at [place] 00 bedtime. Medical Branch glipiZIDE 2022-0 Yes [id number] 2.5mg Take 1 U nivers XL 2.5 mg 1-05 tablet by ity o f 24 hr 00:00: mouth in [place] tablet 00 the Medical morning Branch and 1 tablet in the evening. bumetanide Yes 1mg Take 1 Unive rs 1 mg tablet 1-05 tablet by ity of 00:00: mouth [place] 00 every Medical morning Branch and evening. Indication s: reports kidney Dr Rx, ~2 mths ago arformotero Yes [id number] 15ug Use 2 mL [facility] L 15 mcg/2 1-05 as ity of mL 00:00: directed [place] nebulizer 00 in the Medical solution morning Branch and 2 mL in the evening. ipratropium Yes [id number] .5mg Inhale 2.5 [facility] 0.02 % 1-05 mL every 4 ity of nebulizer 00:00: (four) [place] solution 00 hours as Medical needed for Branch Wheezing or Shortness of Breath. albuterol Yes [id number] 2{puff} Inhale 2 [facility] 90 1-05 Puffs ity of mcg/actuati 00:00: every 6 [place] as on inhaler 00 (six) Medical hours as Branch needed for Wheezing or Shortness of Breath. albuterol Yes [id number] 2.5mg Inhale 3 [facility] 2.5 mg /3 1-05 mL every 2 ity of mL (0.083 00:00: (two) [place] ) 00 hours as Medical nebulizer needed for Bran ch solution Shortness of Breath or Wheezing. cloNIDine Yes [id number] .2mg Take 1 U nivers 0.2 mg 1-05 tablet by ity of tablet 00:00: mouth 3 [place] 00 (three) Medical times Branch daily as needed (Uncontrol led Hypertensi on). Take 1 Tab if BP > 150/90 NIFEdipine Yes [id number] 30mg Take 1 U nivers ER 30 mg 1-05 tablet by ity of tablet 00:00: mouth in [place] 00 the Medical morning. Branch levothyroxi Yes [id number] 150ug Take 1 [facility] ne 150 mcg 1-05 tablet by ity of tablet 00:00: mouth [place] 00 every Medical morning. Branch tamsulosin Yes [id number] .4mg Take 1 [facility] 0.4 mg 24 1-05 9102 capsule by ity of hr capsule 00:00: mouth in [place] as 00 the Medical morning. Branch budesonide 0 Yes [id number] .5mg Inhale 2 [facility] 0.5 mg/2 mL 1-05 mL in the ity of nebulizer 00:00: morning [place] solution 00 and 2 mL Medical in the Branch evening. traZODone 2022-0 Yes [id number] 50mg Take 1 U nivers 50 mg 1-05 tablet by ity of tablet 00:00: mouth at [place] 00 bedtime. Medical Branch doxepin 25 2022-0 Yes [id number] 25mg Take 1 [facility] mg capsule 1-05 capsule by ity of 00:00: mouth at [place] 00 bedtime. Medical Branch glipiZIDE 0 Yes [id number] 2.5mg Take 1 U nivers XL 2.5 [...] Rx, ~2 mths ago arformotero 0 Yes [id number] 15ug Use 2 mL [facility] L 15 mcg/2 1-05 as ity of mL 00:00: directed [place] nebulizer 00 in the Medical solution morning Branch and 2 mL in the evening. ipratropium 0 Yes [id number] .5mg Inhale 2.5 [facility] 0.02 % 1-05 mL every 4 ity of nebulizer 00:00: (four) [place] solution 00 hours as Medical needed for Branch Wheezing or Shortness of Breath. albuterol 2022-0 Yes [id number] 2{puff} Inhale 2 [facility] 90 1-05 Puffs ity of mcg/actuati 00:00: every 6 [place] as on inhaler 00 (six) Medical hours as Branch needed for Wheezing or Shortness of Breath. albuterol 0 Yes [id number] 2.5mg Inhale 3 [facility] 2.5 mg /3 1-05 mL every 2 ity of mL (0.083 00:00: (two) [place] %) 00 hours as Medical nebulizer needed for Bran ch solution Shortness of Breath or Wheezing. cloNIDine Yes [id number] .2mg Take 1 U nivers 0.2 mg 1-05 tablet by ity of tablet 00:00: mouth 3 [place] 00 (three) Medical times Branch daily as needed (Uncontrol led Hypertensi on). Take 1 Tab if BP > 150/90 NIFEdipine Yes [id number] 30mg Take 1 U nivers ER 30 mg 1-05 tablet by ity of tablet 00:00: mouth in [place] 00 the Medical morning. Branch levothyroxi Yes [id number] 150ug Take 1 [facility] ne 150 mcg 1-05 tablet by ity of tablet 00:00: mouth [place] 00 every Medical morning. Branch tamsulosin Yes [id number] .4mg Take 1 [facility] 0.4 mg 24 1-05 9102 capsule by ity of hr capsule 00:00: mouth in [place] as 00 the Medical morning. Branch budesonide Yes [id number] .5mg Inhale 2 [facility] 0.5 mg/2 mL 1-05 mL in the ity of nebulizer 00:00: morning [place] solution 00 and 2 mL Medical in the Branch evening. traZODone Yes [id number] 50mg Take 1 U nivers 50 mg 1-05 tablet by ity of tablet 00:00: mouth at [place] 00 bedtime. [facility] Branch doxepin 25 0 Yes [id number] 25mg Take 1 [facility] mg capsule 1-05 capsule by ity of 00:00: mouth at [place] 00 bedtime. [facility] Branch glipiZIDE Yes [id number] 2.5mg Take 1 U nivers XL 2.5 [...] Rx, ~2 mths ago arformotero 0 Yes [id number] 15ug Use 2 mL [facility] L 15 mcg/2 1-05 as ity of mL 00:00: directed [place] nebulizer 00 in the Medical solution morning Branch and 2 mL in the evening. ipratropium 2022-0 Yes [id number] .5mg Inhale 2.5 [facility] 0.02 % 1-05 mL every 4 ity of nebulizer 00:00: (four) [place] solution 00 hours as Medical needed for Branch Wheezing or Shortness of Breath. albuterol 2022-0 Yes [id number] 2{puff} Inhale 2 [facility] 90 1-05 Puffs ity of mcg/actuati 00:00: every 6 [place] as on inhaler 00 (six) Medical hours as Branch needed for Wheezing or Shortness of Breath. albuterol 2022-0 Yes [id number] 2.5mg Inhale 3 [facility] 2.5 mg /3 1-05 mL every 2 ity of mL (0.083 00:00: (two) [place] %) 00 hours as Medical nebulizer needed for Bran ch solution Shortness of Breath or Wheezing. cloNIDine 0 Yes [id number] .2mg Take 1 U nivers 0.2 mg 1-05 tablet by ity of tablet 00:00: mouth 3 [place] 00 (three) Medical times Branch daily as needed (Uncontrol led Hypertensi on). Take 1 Tab if BP > 150/90 NIFEdipine 2022-0 Yes [id number] 30mg Take 1 U nivers ER 30 mg 1-05 tablet by ity of tablet 00:00: mouth in [place] 00 the Medical morning. Branch levothyroxi 0 Yes [id number] 150ug Take 1 [facility] ne 150 mcg 1-05 tablet by ity of tablet 00:00: mouth [place] 00 every Medical morning. Branch tamsulosin 0 Yes [id number] .4mg Take 1 [facility] 0.4 mg 24 1-05 9102 capsule by ity of hr capsule 00:00: mouth in [place] as 00 the Medical morning. Branch budesonide 2022-0 Yes [id number] .5mg Inhale 2 [facility] 0.5 mg/2 mL 1-05 mL in the ity of nebulizer 00:00: morning [place] solution 00 and 2 mL Medical in the Branch evening. traZODone 2022-0 Yes [id number] 50mg Take 1 U nivers 50 mg 1-05 tablet by ity of tablet 00:00: mouth at [place] 00 bedtime. Medical Branch doxepin 25 Yes [id number] 25mg Take 1 [facility] mg capsule 1-05 capsule by ity of 00:00: mouth at [place] 00 bedtime. Medical Branch glipiZIDE Yes [id number] 2.5mg Take 1 U nivers XL 2.5 [...] Dr Rx, ~2 mths ago arformotero Yes [id number] 15ug Use 2 mL [facility] L 15 mcg/2 1-05 as ity of mL 00:00: directed [place] nebulizer 00 in the Medical solution morning Branch and 2 mL in the evening. ipratropium Yes [id number] .5mg Inhale 2.5 [facility] 0.02 % 1-05 mL every 4 ity of nebulizer 00:00: (four) [place] solution 00 hours as Medical needed for Branch Wheezing or Shortness of Breath. albuterol Yes [id number] 2{puff} Inhale 2 [facility] 90 1-05 Puffs ity of mcg/actuati 00:00: every 6 [place] as on inhaler 00 (six) Medical hours as Branch needed for Wheezing or Shortness of Breath. albuterol Yes [id number] 2.5mg Inhale 3 [facility] 2.5 mg /3 1-05 mL every 2 ity of mL (0.083 00:00: (two) [place] %) 00 hours as Medical nebulizer needed for Bran ch solution Shortness of Breath or Wheezing. cloNIDine Yes [id number] .2mg Take 1 U nivers 0.2 mg 1-05 tablet by ity of tablet 00:00: mouth 3 [place] 00 (three) Medical times Branch daily as needed (Uncontrol led Hypertensi on). Take 1 Tab if BP > 150/90 NIFEdipine Yes [id number] 30mg Take 1 U nivers ER 30 mg 1-05 tablet by ity of tablet 00:00: mouth in [place] 00 the Medical morning. Branch levothyroxi Yes [id number] 150ug Take 1 [facility] ne 150 mcg 1-05 tablet by ity of tablet 00:00: mouth [place] 00 every Medical morning. Branch tamsulosin Yes [id number] .4mg Take 1 [facility] 0.4 mg 24 1-05 9102 capsule by ity of hr capsule 00:00: mouth in [place] as 00 the Medical morning. Branch budesonide 0 Yes [id number] .5mg Inhale 2 [facility] 0.5 mg/2 mL 1-05 mL in the ity of nebulizer 00:00: morning [place] solution 00 and 2 mL Medical in the Branch evening. traZODone 0 Yes [id number] 50mg Take 1 U nivers 50 mg 1-05 tablet by ity of tablet 00:00: mouth at [place] 00 bedtime. Medical Branch doxepin 25 0 Yes [id number] 25mg Take 1 [facility] mg capsule 1-05 capsule by ity of 00:00: mouth at [place] 00 bedtime. Medical Branch glipiZIDE Yes [id number] 2.5mg Take 1 U nivers XL 2.5 [...] Rx, ~2 mths ago arformotero 0 Yes [id number] 15ug Use 2 mL [facility] L 15 mcg/2 1-05 as ity of mL 00:00: directed [place] nebulizer 00 in the Medical solution morning Branch and 2 mL in the evening. ipratropium 0 Yes [id number] .5mg Inhale 2.5 [facility] 0.02 % 1-05 mL every 4 ity of nebulizer 00:00: (four) [place] solution 00 hours as Medical needed for Branch Wheezing or Shortness of Breath. albuterol 0 Yes [id number] 2{puff} Inhale 2 [facility] 90 1-05 Puffs ity of mcg/actuati 00:00: every 6 [place] as on inhaler 00 (six) Medical hours as Branch needed for Wheezing or Shortness of Breath. albuterol Yes [id number] 2.5mg Inhale 3 [facility] 2.5 mg /3 1-05 mL every 2 ity of mL (0.083 00:00: (two) [place] %) 00 hours as Medical nebulizer needed for Bran ch solution Shortness of Breath or Wheezing. cloNIDine 0 Yes [id number] .2mg Take 1 U nivers 0.2 mg 1-05 tablet by ity of tablet 00:00: mouth 3 [place] 00 (three) Medical times Branch daily as needed (Uncontrol led Hypertensi on). Take 1 Tab if BP > 150/90 NIFEdipine 2022-0 Yes [id number] 30mg Take 1 U nivers ER 30 mg 1-05 tablet by ity of tablet 00:00: mouth in [place] 00 the Medical morning. Branch levothyroxi Yes [id number] 150ug Take 1 [facility] ne 150 mcg 1-05 tablet by ity of tablet 00:00: mouth [place] 00 every Medical morning. Branch tamsulosin Yes [id number] .4mg Take 1 [facility] 0.4 mg 24 1-05 9102 capsule by ity of hr capsule 00:00: mouth in [place] as 00 the Medical morning. Branch budesonide Yes [id number] .5mg Inhale 2 [facility] 0.5 mg/2 mL 1-05 mL in the ity of nebulizer 00:00: morning [place] solution 00 and 2 mL Medical in the Branch evening. traZODone 2022-0 Yes [id number] 50mg Take 1 [facility] nivers 50 mg 1-05 tablet by ity of tablet 00:00: mouth at [place] 00 bedtime. Medical Branch doxepin 25 2022-0 Yes [id number] 25mg Take 1 [facility] mg capsule 1-05 capsule by ity of 00:00: mouth at [place] 00 bedtime. Medical Branch glipiZIDE 0 Yes [id number] 2.5mg Take 1 U nivers XL 2.5 [...] Dr Rx, ~2 mths ago arformotero Yes [id number] 15ug Use 2 mL [facility] L 15 mcg/2 1-05 as ity of mL 00:00: directed [place] nebulizer 00 in the Medical solution morning Branch and 2 mL in the evening. ipratropium Yes [id number] .5mg Inhale 2.5 [facility] 0.02 % 1-05 mL every 4 ity of nebulizer 00:00: (four) [place] solution 00 hours as Medical needed for Branch Wheezing or Shortness of Breath. albuterol Yes [id number] 2{puff} Inhale 2 [facility] 90 1-05 Puffs ity of mcg/actuati 00:00: every 6 [place] as on inhaler 00 (six) Medical hours as Branch needed for Wheezing or Shortness of Breath. albuterol Yes [id number] 2.5mg Inhale 3 [facility] 2.5 mg /3 1-05 mL every 2 ity of mL (0.083 00:00: (two) [place] %) 00 hours as Medical nebulizer needed for Bran ch solution Shortness of Breath or Wheezing. cloNIDine Yes [id number] .2mg Take 1 [facility] nivers 0.2 mg 1-05 tablet by ity of tablet 00:00: mouth 3 [place] 00 (three) Medical times Branch daily as needed (Uncontrol led Hypertensi on). Take 1 Tab if BP > 150/90 NIFEdipine Yes [id number] 30mg Take 1 U nivers ER 30 mg 1-05 tablet by ity of tablet 00:00: mouth in [place] 00 the Medical morning. Branch levothyroxi Yes [id number] 150ug Take 1 [facility] ne 150 mcg 1-05 tablet by ity of tablet 00:00: mouth [place] 00 every Medical morning. Branch tamsulosin Yes [id number] .4mg Take 1 [facility] 0.4 mg 24 1-05 9102 capsule by ity of hr capsule 00:00: mouth in [place] as 00 the Medical morning. Branch budesonide Yes [id number] .5mg Inhale 2 [facility] 0.5 mg/2 mL 1-05 mL in the ity of nebulizer 00:00: morning [place] solution 00 and 2 mL Medical in the Branch evening. traZODone 0 Yes [id number] 50mg Take 1 [facility] nivers 50 mg 1-05 tablet by ity of tablet 00:00: mouth at [place] 00 bedtime. Medical Branch doxepin 25 2022-0 Yes [id number] 25mg Take 1 [facility] mg capsule 1-05 capsule by ity of 00:00: mouth at [place] 00 bedtime. Medical Branch glipiZIDE Yes [id number] 2.5mg Take 1 U nivers XL 2.5 [...] Dr Rx, ~2 mths ago arformotero Yes [id number] 15ug Use 2 mL [facility] L 15 mcg/2 1-05 as ity of mL 00:00: directed [place] nebulizer 00 in the Medical solution morning Branch and 2 mL in the evening. ipratropium Yes [id number] .5mg Inhale 2.5 [facility] 0.02 % 1-05 mL every 4 ity of nebulizer 00:00: (four) [place] solution 00 hours as Medical needed for Branch Wheezing or Shortness of Breath. albuterol 0 Yes [id number] 2{puff} Inhale 2 [facility] 90 1-05 Puffs ity of mcg/actuati 00:00: every 6 [place] as on inhaler 00 (six) Medical hours as Branch needed for Wheezing or Shortness of Breath. albuterol 0 Yes [id number] 2.5mg Inhale 3 [facility] 2.5 mg /3 1-05 mL every 2 ity of mL (0.083 00:00: (two) [place] %) 00 hours as Medical nebulizer needed for Bran ch solution Shortness of Breath or Wheezing. cloNIDine Yes [id number] .2mg Take 1 [facility] nivers 0.2 mg 1-05 tablet by ity of tablet 00:00: mouth 3 [place] 00 (three) Medical times Branch daily as needed (Uncontrol led Hypertensi on). Take 1 Tab if BP > 150/90 NIFEdipine 0 Yes [id number] 30mg Take 1 U nivers ER 30 mg 1-05 tablet by ity of tablet 00:00: mouth in [place] 00 the Medical morning. Branch levothyroxi Yes [id number] 150ug Take 1 [facility] ne 150 mcg 1-05 tablet by ity of tablet 00:00: mouth [place] 00 every Medical morning. Branch tamsulosin Yes [id number] .4mg Take 1 [facility] 0.4 mg 24 1-05 9102 capsule by ity of hr capsule 00:00: mouth in [place] as 00 the Medical morning. Branch budesonide Yes [id number] .5mg Inhale 2 [facility] 0.5 mg/2 mL 1-05 mL in the ity of nebulizer 00:00: morning [place] solution 00 and 2 mL Medical in the Branch evening. traZODone Yes [id number] 50mg Take 1 [facility] nivers 50 mg 1-05 tablet by ity of tablet 00:00: mouth at [place] 00 bedtime. Medical Branch doxepin 25 0 Yes [id number] 25mg Take 1 [facility] mg capsule 1-05 capsule by ity of 00:00: mouth at [place] 00 bedtime. Medical Branch glipiZIDE 0 Yes [id number] 2.5mg Take 1 [facility] nivers XL 2.5 [...] Rx, ~2 mths ago arformotero 0 Yes [id number] 15ug Use 2 mL [facility] L 15 mcg/2 1-05 as ity of mL 00:00: directed [place] nebulizer 00 in the Medical solution morning Branch and 2 mL in the evening. ipratropium 0 Yes [id number] .5mg Inhale 2.5 [facility] 0.02 % 1-05 mL every 4 ity of nebulizer 00:00: (four) [place] solution 00 hours as Medical needed for Branch Wheezing or Shortness of Breath. albuterol Yes [id number] 2{puff} Inhale 2 [facility] 90 1-05 Puffs ity of mcg/actuati 00:00: every 6 [place] as on inhaler 00 (six) Medical hours as Branch needed for Wheezing or Shortness of Breath. albuterol Yes [id number] 2.5mg Inhale 3 [facility] 2.5 mg /3 1-05 mL every 2 ity of mL (0.083 00:00: (two) [place] %) 00 hours as Medical nebulizer needed for Bran ch solution Shortness of Breath or Wheezing. cloNIDine Yes [id number] .2mg Take 1 [facility] nivers 0.2 mg 1-05 tablet by ity of tablet 00:00: mouth 3 [place] 00 (three) Medical times Branch daily as needed (Uncontrol led Hypertensi on). Take 1 Tab if BP > 150/90 NIFEdipine Yes [id number] 30mg Take 1 U nivers ER 30 mg 1-05 tablet by ity of tablet 00:00: mouth in [place] 00 the Medical morning. Branch levothyroxi Yes [id number] 150ug Take 1 [facility] ne 150 mcg 1-05 tablet by ity of tablet 00:00: mouth [place] 00 every Medical morning. Branch tamsulosin Yes [id number] .4mg Take 1 [facility] 0.4 mg 24 1-05 9102 capsule by ity of hr capsule 00:00: mouth in [place] as 00 the Medical morning. Branch budesonide Yes [id number] .5mg Inhale 2 [facility] 0.5 mg/2 mL 1-05 mL in the ity of nebulizer 00:00: morning [place] solution 00 and 2 mL Medical in the Branch evening. traZODone 0 Yes [id number] 50mg Take 1 [facility] nivers 50 mg 1-05 tablet by ity of tablet 00:00: mouth at [place] 00 bedtime. Medical Branch doxepin 25 0 Yes [id number] 25mg Take 1 [facility] mg capsule 1-05 capsule by ity of 00:00: mouth at [place] 00 bedtime. Medical Branch glipiZIDE Yes [id number] 2.5mg Take 1 [facility] nivers XL 2.5 [...] Dr Rx, ~2 mths ago arformotero Yes [id number] 15ug Use 2 mL [facility] L 15 mcg/2 1-05 as ity of mL 00:00: directed [place] nebulizer 00 in the Medical solution morning Branch and 2 mL in the evening. ipratropium Yes [id number] .5mg Inhale 2.5 [facility] 0.02 % 1-05 mL every 4 ity of nebulizer 00:00: (four) [place] solution 00 hours as Medical needed for Branch Wheezing or Shortness of Breath. albuterol Yes [id number] 2{puff} Inhale 2 [facility] 90 1-05 Puffs ity of mcg/actuati 00:00: every 6 [place] as on inhaler 00 (six) Medical hours as Branch needed for Wheezing or Shortness of Breath. albuterol Yes [id number] 2.5mg Inhale 3 [facility] 2.5 mg /3 1-05 mL every 2 ity of mL (0.083 00:00: (two) [place] %) 00 hours as Medical nebulizer needed for Bran ch solution Shortness of Breath or Wheezing. cloNIDine Yes [id number] .2mg Take 1 [facility] nivers 0.2 mg 1-05 tablet by ity of tablet 00:00: mouth 3 [place] 00 (three) Medical times Branch daily as needed (Uncontrol led Hypertensi on). Take 1 Tab if BP > 150/90 NIFEdipine Yes [id number] 30mg Take 1 U nivers ER 30 mg 1-05 tablet by ity of tablet 00:00: mouth in [place] 00 the Medical morning. Branch levothyroxi Yes [id number] 150ug Take 1 [facility] ne 150 mcg 1-05 tablet by ity of tablet 00:00: mouth [place] 00 every Medical morning. Branch tamsulosin Yes [id number] .4mg Take 1 [facility] 0.4 mg 24 1-05 9102 capsule by ity of hr capsule 00:00: mouth in [place] as 00 the Medical morning. Branch budesonide 0 Yes [id number] .5mg Inhale 2 [facility] 0.5 mg/2 mL 1-05 mL in the ity of nebulizer 00:00: morning [place] solution 00 and 2 mL Medical in the Branch evening. traZODone 0 Yes [id number] 50mg Take 1 [facility] nivers 50 mg 1-05 tablet by ity of tablet 00:00: mouth at [place] 00 bedtime. Medical Branch doxepin 25 Yes [id number] 25mg Take 1 [facility] mg capsule 1-05 capsule by ity of 00:00: mouth at [place] 00 bedtime. Medical Branch glipiZIDE Yes [id number] 2.5mg Take 1 U nivers XL 2.5 [...] reports kidney Rx, ~2 mths ago arformotero 0 Yes [id number] 15ug Use 2 mL [facility] L 15 mcg/2 1-05 as ity of mL 00:00: directed [place] nebulizer 00 in the Medical solution morning Branch and 2 mL in the evening. ipratropium 0 Yes [id number] .5mg Inhale 2.5 [facility] 0.02 % 1-05 mL every 4 ity of nebulizer 00:00: (four) [place] solution 00 hours as Medical needed for Branch Wheezing or Shortness of Breath. albuterol 2022-0 Yes [id number] 2{puff} Inhale 2 [facility] 90 1-05 Puffs ity of mcg/actuati 00:00: every 6 [place] as on inhaler 00 (six) Medical hours as Branch needed for Wheezing or Shortness of Breath. albuterol 2022-0 Yes [id number] 2.5mg Inhale 3 [facility] 2.5 mg /3 1-05 mL every 2 ity of mL (0.083 00:00: (two) [place] %) 00 hours as Medical nebulizer needed for Bran ch solution Shortness of Breath or Wheezing. cloNIDine 0 Yes [id number] .2mg Take 1 [facility] nivers 0.2 mg 1-05 tablet by ity of tablet 00:00: mouth 3 [place] 00 (three) Medical times Branch daily as needed (Uncontrol led Hypertensi on). Take 1 Tab if BP > 150/90 NIFEdipine 0 Yes [id number] 30mg Take 1 U nivers ER 30 mg 1-05 tablet by ity of tablet 00:00: mouth in [place] 00 the Medical morning. Branch levothyroxi Yes [id number] 150ug Take 1 [facility] ne 150 mcg 1-05 tablet by ity of tablet 00:00: mouth [place] 00 every Medical morning. Branch tamsulosin Yes [id number] .4mg Take 1 [facility] 0.4 mg 24 1-05 9102 capsule by ity of hr capsule 00:00: mouth in [place] as 00 the Medical morning. Branch budesonide Yes [id number] .5mg Inhale 2 [facility] 0.5 mg/2 mL 1-05 mL in the ity of nebulizer 00:00: morning [place] solution 00 and 2 mL Medical in the Branch evening. traZODone Yes [id number] 50mg Take 1 [facility] nivers 50 mg 1-05 tablet by ity of tablet 00:00: mouth at [place] 00 bedtime. Medical Branch doxepin 25 0 Yes [id number] 25mg Take 1 [facility] mg capsule 1-05 capsule by ity of 00:00: mouth at [place] 00 bedtime. Medical Branch glipiZIDE 0 Yes [id number] 2.5mg Take 1 U nivers XL 2.5 [...] Dr Rx, ~2 mths ago arformotero Yes [id number] 15ug Use 2 mL [facility] L 15 mcg/2 1-05 as ity of mL 00:00: directed [place] nebulizer 00 in the Medical solution morning Branch and 2 mL in the evening. ipratropium Yes [id number] .5mg Inhale 2.5 [facility] 0.02 % 1-05 mL every 4 ity of nebulizer 00:00: (four) [place] solution 00 hours as Medical needed for Branch Wheezing or Shortness of Breath. albuterol Yes [id number] 2{puff} Inhale 2 [facility] 90 1-05 Puffs ity of mcg/actuati 00:00: every 6 [place] as on inhaler 00 (six) Medical hours as Branch needed for Wheezing or Shortness of Breath. albuterol Yes [id number] 2.5mg Inhale 3 [facility] 2.5 mg /3 1-05 mL every 2 ity of mL (0.083 00:00: (two) [place] %) 00 hours as Medical nebulizer needed for Bran ch solution Shortness of Breath or Wheezing. cloNIDine Yes [id number] .2mg Take 1 [facility] nivers 0.2 mg 1-05 tablet by ity of tablet 00:00: mouth 3 [place] 00 (three) Medical times Branch daily as needed (Uncontrol led Hypertensi on). Take 1 Tab if BP > 150/90 NIFEdipine Yes [id number] 30mg Take 1 [facility] nivers ER 30 mg 1-05 tablet by ity of tablet 00:00: mouth in [place] 00 the Medical morning. Branch levothyroxi Yes [id number] 150ug Take 1 [facility] ne 150 mcg 1-05 tablet by ity of tablet 00:00: mouth [place] 00 every Medical morning. Branch tamsulosin Yes [id number] .4mg Take 1 [facility] 0.4 mg 24 1-05 9102 capsule by ity of hr capsule 00:00: mouth in [place] as 00 the Medical morning. Branch budesonide Yes [id number] .5mg Inhale 2 [facility] 0.5 mg/2 mL 1-05 mL in the ity of nebulizer 00:00: morning [place] solution 00 and 2 mL Medical in the Branch evening. traZODone Yes [id number] 50mg Take 1 [facility] nivers 50 mg 1-05 tablet by ity of tablet 00:00: mouth at [place] 00 bedtime. Medical Branch doxepin 25 Yes [id number] 25mg Take 1 [facility] mg capsule 1-05 capsule by ity of 00:00: mouth at [place] 00 bedtime. Medical Branch glipiZIDE Yes [id number] 2.5mg Take 1 [facility] nivers XL 2.5 [...] Dr Rx, ~2 mths ago arformotero Yes [id number] 15ug Use 2 mL [facility] L 15 mcg/2 1-05 as ity of mL 00:00: directed [place] nebulizer 00 in the Medical solution morning Branch and 2 mL in the evening. ipratropium Yes [id number] .5mg Inhale 2.5 [facility] 0.02 % 1-05 mL every 4 ity of nebulizer 00:00: (four) [place] solution 00 hours as Medical needed for Branch Wheezing or Shortness of Breath. albuterol Yes [id number] 2{puff} Inhale 2 [facility] 90 1-05 Puffs ity of mcg/actuati 00:00: every 6 [place] as on inhaler 00 (six) Medical hours as Branch needed for Wheezing or Shortness of Breath. albuterol Yes [id number] 2.5mg Inhale 3 [facility] 2.5 mg /3 1-05 mL every 2 ity of mL (0.083 00:00: (two) [place] %) 00 hours as Medical nebulizer needed for Bran ch solution Shortness of Breath or Wheezing. cloNIDine Yes [id number] .2mg Take 1 [facility] nivers 0.2 mg 1-05 tablet by ity of tablet 00:00: mouth 3 [place] 00 (three) Medical times Branch daily as needed (Uncontrol led Hypertensi on). Take 1 Tab if BP > 150/90 NIFEdipine 0 Yes [id number] 30mg Take 1 [facility] nivers ER 30 mg 1-05 tablet by ity of tablet 00:00: mouth in [place] 00 the Medical morning. Branch levothyroxi 0 Yes [id number] 150ug Take 1 [facility] ne 150 mcg 1-05 tablet by ity of tablet 00:00: mouth [place] 00 every Medical morning. Branch tamsulosin 0 Yes [id number] .4mg Take 1 [facility] 0.4 mg 24 1-05 9102 capsule by ity of hr capsule 00:00: mouth in [place] as 00 the Medical morning. Branch budesonide Yes [id number] .5mg Inhale 2 [facility] 0.5 mg/2 mL 1-05 mL in the ity of nebulizer 00:00: morning [place] solution 00 and 2 mL Medical in the Branch evening. traZODone 0 Yes [id number] 50mg Take 1 [facility] nivers 50 mg 1-05 tablet by ity of tablet 00:00: mouth at [place] 00 bedtime. Medical Branch doxepin 25 0 Yes [id number] 25mg Take 1 [facility] mg capsule 1-05 capsule by ity of 00:00: mouth at [place] 00 bedtime. Medical Branch glipiZIDE 0 Yes [id number] 2.5mg Take 1 U nivers XL 2.5 mg 1-05 tablet by ity o f 24 hr 00:00: mouth in [place] tablet 00 the Medical morning Branch and 1 tablet in the evening. bumetanide 0 Yes 1mg Take 1 Un[facility] rs 1 mg tablet 1-05 tablet by ity of 00:00: mouth [place] 00 every Medical morning Branch and evening. Indication s: reports kidney Dr Rx, ~2 mths ago arformotero 0 Yes [id number] 15ug Use 2 mL [facility] L 15 mcg/2 1-05 as ity of mL 00:00: directed [place] nebulizer 00 in the Medical solution morning Branch and 2 mL in the evening. ipratropium 0 Yes [id number] .5mg Inhale 2.5 [facility] 0.02 % 1-05 mL every 4 ity of nebulizer 00:00: (four) [place] solution 00 hours as Medical needed for Branch Wheezing or Shortness of Breath. albuterol 0 Yes [id number] 2{puff} Inhale 2 [facility] 90 1-05 Puffs ity of mcg/actuati 00:00: every 6 [place] as on inhaler 00 (six) Medical hours as Branch needed for Wheezing or Shortness of Breath. albuterol 0 Yes [id number] 2.5mg Inhale 3 [facility] 2.5 mg /3 1-05 mL every 2 ity of mL (0.083 00:00: (two) [place] %) 00 hours as Medical nebulizer needed for Bran ch solution Shortness of Breath or Wheezing. cloNIDine 0 Yes [id number] .2mg Take 1 U nivers 0.2 mg 1-05 tablet by ity of tablet 00:00: mouth 3 [place] 00 (three) Medical times Branch daily as needed (Uncontrol led Hypertensi on). Take 1 Tab if BP > 150/90 NIFEdipine 2022-0 Yes [id number] 30mg Take 1 U nivers ER 30 mg 1-05 tablet by ity of tablet 00:00: mouth in [place] 00 the Medical morning. Branch levothyroxi 0 Yes [id number] 150ug Take 1 [facility] ne 150 mcg 1-05 tablet by ity of tablet 00:00: mouth [place] 00 every Medical morning. Branch tamsulosin 0 Yes [id number] .4mg Take 1 [facility] 0.4 mg 24 1-05 9102 capsule by ity of hr capsule 00:00: mouth in [place] as 00 the Medical morning. Branch budesonide 0 Yes [id number] .5mg Inhale 2 [facility] 0.5 mg/2 mL 1-05 mL in the ity of nebulizer 00:00: morning [place] solution 00 and 2 mL Medical in the Branch evening. traZODone 2022-0 Yes [id number] 50mg Take 1 [facility] nivers 50 mg 1-05 tablet by ity of tablet 00:00: mouth at [place] 00 bedtime. Medical Branch doxepin 25 2022-0 Yes [id number] 25mg Take 1 [facility] mg capsule 1-05 capsule by ity of 00:00: mouth at [place] 00 bedtime. Medical Branch glipiZIDE 2022-0 Yes [id number] 2.5mg Take 1 U nivers XL 2.5 [...] Dr Rx, ~2 mths ago arformotero Yes [id number] 15ug Use 2 mL [facility] L 15 mcg/2 1-05 as ity of mL 00:00: directed [place] nebulizer 00 in the Medical solution morning Branch and 2 mL in the evening. ipratropium Yes [id number] .5mg Inhale 2.5 [facility] 0.02 % 1-05 mL every 4 ity of nebulizer 00:00: (four) [place] solution 00 hours as Medical needed for Branch Wheezing or Shortness of Breath. albuterol Yes [id number] 2{puff} Inhale 2 [facility] 90 1-05 Puffs ity of mcg/actuati 00:00: every 6 [place] as on inhaler 00 (six) Medical hours as Branch needed for Wheezing or Shortness of Breath. albuterol Yes [id number] 2.5mg Inhale 3 [facility] 2.5 mg /3 1-05 mL every 2 ity of mL (0.083 00:00: (two) [place] %) 00 hours as Medical nebulizer needed for Bran ch solution Shortness of Breath or Wheezing. cloNIDine Yes [id number] .2mg Take 1 [facility] nivers 0.2 mg 1-05 tablet by ity of tablet 00:00: mouth 3 [place] 00 (three) Medical times Branch daily as needed (Uncontrol led Hypertensi on). Take 1 Tab if BP > 150/90 NIFEdipine Yes [id number] 30mg Take 1 U nivers ER 30 mg 1-05 tablet by ity of tablet 00:00: mouth in [place] 00 the Medical morning. Branch levothyroxi Yes [id number] 150ug Take 1 [facility] ne 150 mcg 1-05 tablet by ity of tablet 00:00: mouth [place] 00 every Medical morning. Branch tamsulosin Yes [id number] .4mg Take 1 [facility] 0.4 mg 24 1-05 9102 capsule by ity of hr capsule 00:00: mouth in [place] as 00 the Medical morning. Branch budesonide 2022-0 Yes [id number] .5mg Inhale 2 [facility] 0.5 mg/2 mL 1-05 mL in the ity of nebulizer 00:00: morning [place] solution 00 and 2 mL Medical in the Branch evening. traZODone 2022-0 Yes [id number] 50mg Take 1 U nivers 50 mg 1-05 tablet by ity of tablet 00:00: mouth at [place] 00 bedtime. Medical Branch doxepin 25 2022-0 Yes [id number] 25mg Take 1 [facility] mg capsule 1-05 capsule by ity of 00:00: mouth at [place] 00 bedtime. Medical Branch glipiZIDE 2022-0 Yes [id number] 2.5mg Take 1 U nivers XL 2.5 [...] Rx, ~2 mths ago arformotero 2022-0 Yes [id number] 15ug Use 2 mL [facility] L 15 mcg/2 1-05 as ity of mL 00:00: directed [place] nebulizer 00 in the Medical solution morning Branch and 2 mL in the evening. ipratropium 2022-0 Yes [id number] .5mg Inhale 2.5 [facility] 0.02 % 1-05 mL every 4 ity of nebulizer 00:00: (four) [place] solution 00 hours as Medical needed for Branch Wheezing or Shortness of Breath. albuterol 2022-0 Yes [id number] 2{puff} Inhale 2 [facility] 90 1-05 Puffs ity of mcg/actuati 00:00: every 6 [place] as on inhaler 00 (six) Medical hours as Branch needed for Wheezing or Shortness of Breath. albuterol 2022-0 Yes [id number] 2.5mg Inhale 3 [facility] 2.5 mg /3 1-05 mL every 2 ity of mL (0.083 00:00: (two) [place] %) 00 hours as Medical nebulizer needed for Bran ch solution Shortness of Breath or Wheezing. cloNIDine Yes [id number] .2mg Take 1 [facility] nivers 0.2 mg 1-05 tablet by ity of tablet 00:00: mouth 3 [place] 00 (three) Medical times Branch daily as needed (Uncontrol led Hypertensi on). Take 1 Tab if BP > 150/90 NIFEdipine Yes [id number] 30mg Take 1 U nivers ER 30 mg 1-05 tablet by ity of tablet 00:00: mouth in [place] 00 the Medical morning. Branch levothyroxi Yes [id number] 150ug Take 1 [facility] ne 150 mcg 1-05 tablet by ity of tablet 00:00: mouth [place] 00 every Medical morning. Branch tamsulosin Yes [id number] .4mg Take 1 [facility] 0.4 mg 24 1-05 9102 capsule by ity of hr capsule 00:00: mouth in [place] as 00 the Medical morning. Branch budesonide Yes [id number] .5mg Inhale 2 [facility] 0.5 mg/2 mL 1-05 mL in the ity of nebulizer 00:00: morning [place] solution 00 and 2 mL Medical in the Branch evening. traZODone Yes [id number] 50mg Take 1 [facility] nivers 50 mg 1-05 tablet by ity of tablet 00:00: mouth at [place] 00 bedtime. Medical Branch doxepin 25 Yes [id number] 25mg Take 1 [facility] mg capsule 1-05 capsule by ity of 00:00: mouth at [place] 00 bedtime. Medical Branch glipiZIDE Yes [id number] 2.5mg Take 1 U nivers XL 2.5 [...] Dr Rx, ~2 mths ago arformotero Yes [id number] 15ug Use 2 mL [facility] L 15 mcg/2 1-05 as ity of mL 00:00: directed [place] nebulizer 00 in the Medical solution morning Branch and 2 mL in the evening. ipratropium Yes [id number] .5mg Inhale 2.5 [facility] 0.02 % 1-05 mL every 4 ity of nebulizer 00:00: (four) [place] solution 00 hours as Medical needed for Branch Wheezing or Shortness of Breath. albuterol 0 Yes [id number] 2{puff} Inhale 2 [facility] 90 1-05 Puffs ity of mcg/actuati 00:00: every 6 [place] as on inhaler 00 (six) Medical hours as Branch needed for Wheezing or Shortness of Breath. albuterol Yes [id number] 2.5mg Inhale 3 [facility] 2.5 mg /3 1-05 mL every 2 ity of mL (0.083 00:00: (two) [place] ) 00 hours as Medical nebulizer needed for Bran ch solution Shortness of Breath or Wheezing. cloNIDine Yes [id number] .2mg Take 1 [facility] nivers 0.2 mg 1-05 tablet by ity of tablet 00:00: mouth 3 [place] 00 (three) Medical times Branch daily as needed (Uncontrol led Hypertensi on). Take 1 Tab if BP > 150/90 NIFEdipine 0 Yes [id number] 30mg Take 1 U nivers ER 30 mg 1-05 tablet by ity of tablet 00:00: mouth in [place] 00 the Medical morning. Branch levothyroxi 0 Yes [id number] 150ug Take 1 [facility] ne 150 mcg 1-05 tablet by ity of tablet 00:00: mouth [place] 00 every Medical morning. Branch tamsulosin Yes [id number] .4mg Take 1 [facility] 0.4 mg 24 1-05 9102 capsule by ity of hr capsule 00:00: mouth in [place] as 00 the Medical morning. Branch budesonide 0 Yes [id number] .5mg Inhale 2 [facility] 0.5 mg/2 mL 1-05 mL in the ity of nebulizer 00:00: morning [place] solution 00 and 2 mL Medical in the Branch evening. traZODone 0 Yes [id number] 50mg Take 1 [facility] nivers 50 mg 1-05 tablet by ity of tablet 00:00: mouth at [place] 00 bedtime. Medical Branch doxepin 25 Yes [id number] 25mg Take 1 [facility] mg capsule 1-05 capsule by ity of 00:00: mouth at [place] 00 bedtime. Medical Branch glipiZIDE Yes [id number] 2.5mg Take 1 [facility] nivers XL 2.5 mg 1-05 tablet by ity o f 24 hr 00:00: mouth in [place] tablet 00 the Medical morning Branch and 1 tablet in the evening. bumetanide Yes 1mg Take 1 [facility] rs 1 mg tablet 1-05 tablet by ity of 00:00: mouth [place] 00 every Medical morning Branch and evening. Indication s: reports kidney Dr Rx, ~2 mths ago arformotero Yes [id number] 15ug Use 2 mL [facility] L 15 mcg/2 1-05 as ity of mL 00:00: directed [place] nebulizer 00 in the Medical solution morning Branch and 2 mL in the evening. ipratropium Yes [id number] .5mg Inhale 2.5 [facility] 0.02 % 1-05 mL every 4 ity of nebulizer 00:00: (four) [place] solution 00 hours as Medical needed for Branch Wheezing or Shortness of Breath. albuterol Yes [id number] 2{puff} Inhale 2 [facility] 90 1-05 Puffs ity of mcg/actuati 00:00: every 6 [place] as on inhaler 00 (six) Medical hours as Branch needed for Wheezing or Shortness of Breath. albuterol Yes [id number] 2.5mg Inhale 3 [facility] 2.5 mg /3 1-05 mL every 2 ity of mL (0.083 00:00: (two) [place] %) 00 hours as Medical nebulizer needed for Bran ch solution Shortness of Breath or Wheezing. cloNIDine Yes [id number] .2mg Take 1 U nivers 0.2 mg 1-05 tablet by ity of tablet 00:00: mouth 3 [place] 00 (three) Medical times Branch daily as needed (Uncontrol led Hypertensi on). Take 1 Tab if BP > 150/90 NIFEdipine Yes [id number] 30mg Take 1 U nivers ER 30 mg 1-05 tablet by ity of tablet 00:00: mouth in [place] 00 the Medical morning. Branch levothyroxi Yes [id number] 150ug Take 1 [facility] ne 150 mcg 1-05 tablet by ity of tablet 00:00: mouth [place] 00 every Medical morning. Branch tamsulosin Yes [id number] .4mg Take 1 [facility] 0.4 mg 24 1-05 9102 capsule by ity of hr capsule 00:00: mouth in [place] as 00 the Medical morning. Branch budesonide Yes [id number] .5mg Inhale 2 [facility] 0.5 mg/2 mL 1-05 mL in the ity of nebulizer 00:00: morning [place] solution 00 and 2 mL Medical in the Branch evening. traZODone Yes [id number] 50mg Take 1 U nivers 50 mg 1-05 tablet by ity of tablet 00:00: mouth at [place] [address] bedtime. Medical Branch doxepin 25 Yes [id number] 25mg Take 1 [facility] mg capsule 1-05 capsule by ity of 00:00: mouth at [place] [address] bedtime. Medical Branch glipiZIDE Yes [id number] 2.5mg Take 1 U nivers XL 2.5 mg 1-05 tablet by ity o f 24 hr 00:00: mouth in [place] tablet 00 the Medical morning Branch and 1 tablet in the evening. bumetanide Yes 1mg Take 1 Un[facility] rs 1 mg tablet 1-05 tablet by ity of 00:00: mouth [place] 00 every Medical morning Branch and evening. Indication s: reports kidney Dr Rx, ~2 mths ago arformotero Yes [id number] 15ug Use 2 mL [facility] L 15 mcg/2 1-05 as ity of mL 00:00: directed [place] nebulizer 00 in the Medical solution morning Branch and 2 mL in the evening. ipratropium 0 Yes [id number] .5mg Inhale 2.5 [facility] 0.02 % 1-05 mL every 4 ity of nebulizer 00:00: (four) [place] solution 00 hours as Medical needed for Branch Wheezing or Shortness of Breath. albuterol 0 Yes [id number] 2{puff} Inhale 2 [facility] 90 1-05 Puffs ity of mcg/actuati 00:00: every 6 [place] as on inhaler 00 (six) Medical hours as Branch needed for Wheezing or Shortness of Breath. albuterol Yes [id number] 2.5mg Inhale 3 [facility] 2.5 mg /3 1-05 mL every 2 ity of mL (0.083 00:00: (two) [place] %) 00 hours as Medical nebulizer needed for Bran ch solution Shortness of Breath or Wheezing. cloNIDine Yes [id number] .2mg Take 1 [facility] nivers 0.2 mg 1-05 tablet by ity of tablet 00:00: mouth 3 [place] 00 (three) Medical times Branch daily as needed (Uncontrol led Hypertensi on). Take 1 Tab if BP > 150/90 NIFEdipine 0 Yes [id number] 30mg Take 1 U nivers ER 30 mg 1-05 tablet by ity of tablet 00:00: mouth in [place] 00 the Medical morning. Branch levothyroxi Yes [id number] 150ug Take 1 [facility] ne 150 mcg 1-05 tablet by ity of tablet 00:00: mouth [place] 00 every Medical morning. Branch tamsulosin Yes [id number] .4mg Take 1 [facility] 0.4 mg 24 1-05 9102 capsule by ity of hr capsule 00:00: mouth in [place] as 00 the Medical morning. Branch budesonide Yes [id number] .5mg Inhale 2 [facility] 0.5 mg/2 mL 1-05 mL in the ity of nebulizer 00:00: morning [place] solution 00 and 2 mL Medical in the Branch evening. traZODone 0 Yes [id number] 50mg Take 1 [facility] nivers 50 mg 1-05 tablet by ity of tablet 00:00: mouth at [place] 00 bedtime. Medical Branch doxepin 25 0 Yes [id number] 25mg Take 1 [facility] mg capsule 1-05 capsule by ity of 00:00: mouth at [place] 00 bedtime. Medical Branch glipiZIDE 0 Yes [id number] 2.5mg Take 1 [facility] nivers XL 2.5 mg 1-05 tablet by ity o f 24 hr 00:00: mouth in [place] tablet 00 the Medical morning Branch and 1 tablet in the evening. bumetanide 2023-0 Yes 1mg Take 1 [facility] rs 1 mg tablet 1-05 tablet by ity of 00:00: mouth [place] 00 every Medical morning Branch and evening. Indication s: reports kidney Dr Rx, ~2 mths ago arformotero Yes [id number] 15ug Use 2 mL [facility] L 15 mcg/2 1-05 as ity of mL 00:00: directed [place] nebulizer 00 in the Medical solution morning Branch and 2 mL in the evening. ipratropium Yes [id number] .5mg Inhale 2.5 [facility] 0.02 % 1-05 mL every 4 ity of nebulizer 00:00: (four) [place] solution 00 hours as Medical needed for Branch Wheezing or Shortness of Breath. albuterol Yes [id number] 2{puff} Inhale 2 [facility] 90 1-05 Puffs ity of mcg/actuati 00:00: every 6 [place] as on inhaler 00 (six) Medical hours as Branch needed for Wheezing or Shortness of Breath. albuterol Yes [id number] 2.5mg Inhale 3 [facility] 2.5 mg /3 1-05 mL every 2 ity of mL (0.083 00:00: (two) [place] %) 00 hours as Medical nebulizer needed for Bran ch solution Shortness of Breath or Wheezing. cloNIDine Yes [id number] .2mg Take 1 [facility] nivers 0.2 mg 1-05 tablet by ity of tablet 00:00: mouth 3 [place] 00 (three) Medical times Branch daily as needed (Uncontrol led Hypertensi on). Take 1 Tab if BP > 150/90 NIFEdipine Yes [id number] 30mg Take 1 U nivers ER 30 mg 1-05 tablet by ity of tablet 00:00: mouth in [place] 00 the Medical morning. Branch levothyroxi Yes [id number] 150ug Take 1 [facility] ne 150 mcg 1-05 tablet by ity of tablet 00:00: mouth [place] 00 every Medical morning. Branch tamsulosin Yes [id number] .4mg Take 1 [facility] 0.4 mg 24 1-05 9102 capsule by ity of hr capsule 00:00: mouth in [place] as 00 the Medical morning. Branch budesonide Yes [id number] .5mg Inhale 2 [facility] 0.5 mg/2 mL 1-05 mL in the ity of nebulizer 00:00: morning [place] solution 00 and 2 mL Medical in the Branch evening. traZODone Yes [id number] 50mg Take 1 [facility] nivers 50 mg 1-05 tablet by ity of tablet 00:00: mouth at [place] 00 bedtime. Medical Branch doxepin 25 Yes [id number] 25mg Take 1 [facility] mg capsule 1-05 capsule by ity of 00:00: mouth at [place] 00 bedtime. Medical Branch glipiZIDE Yes [id number] 2.5mg Take 1 U nivers XL 2.5 [...] Dr Rx, ~2 mths ago arformotero Yes [id number] 15ug Use 2 mL [facility] L 15 mcg/2 1-05 as ity of mL 00:00: directed [place] nebulizer 00 in the Medical solution morning Branch and 2 mL in the evening. ipratropium Yes [id number] .5mg Inhale 2.5 [facility] 0.02 % 1-05 mL every 4 ity of nebulizer 00:00: (four) [place] solution 00 hours as Medical needed for Branch Wheezing or Shortness of Breath. albuterol Yes [id number] 2{puff} Inhale 2 [facility] 90 1-05 Puffs ity of mcg/actuati 00:00: every 6 [place] as on inhaler 00 (six) Medical hours as Branch needed for Wheezing or Shortness of Breath. albuterol Yes [id number] 2.5mg Inhale 3 [facility] 2.5 mg /3 1-05 mL every 2 ity of mL (0.083 00:00: (two) [place] %) 00 hours as Medical nebulizer needed for Bran ch solution Shortness of Breath or Wheezing. cloNIDine Yes [id number] .2mg Take 1 [facility] nivers 0.2 mg 1-05 tablet by ity of tablet 00:00: mouth 3 [place] 00 (three) Medical times Branch daily as needed (Uncontrol led Hypertensi on). Take 1 Tab if BP > 150/90 NIFEdipine 0 Yes [id number] 30mg Take 1 U nivers ER 30 mg 1-05 tablet by ity of tablet 00:00: mouth in [place] 00 the Medical morning. Branch levothyroxi 2022-0 Yes [id number] 150ug Take 1 [facility] ne 150 mcg 1-05 tablet by ity of tablet 00:00: mouth [place] 00 every Medical morning. Branch tamsulosin Yes [id number] .4mg Take 1 [facility] 0.4 mg 24 1-05 9102 capsule by ity of hr capsule 00:00: mouth in [place] as 00 the Medical morning. Branch budesonide Yes [id number] .5mg Inhale 2 [facility] 0.5 mg/2 mL 1-05 mL in the ity of nebulizer 00:00: morning [place] solution 00 and 2 mL Medical in the Branch evening. traZODone 0 Yes [id number] 50mg Take 1 [facility] nivers 50 mg 1-05 tablet by ity of tablet 00:00: mouth at [place] 00 bedtime. Medical Branch doxepin 25 0 Yes [id number] 25mg Take 1 [facility] mg capsule 1-05 capsule by ity of 00:00: mouth at [place] 00 bedtime. Medical Branch glipiZIDE 0 Yes [id number] 2.5mg Take 1 [facility] nivers XL 2.5 [...] Rx, ~2 mths ago arformotero 2022-0 Yes [id number] 15ug Use 2 mL [facility] L 15 mcg/2 1-05 as ity of mL 00:00: directed [place] nebulizer 00 in the Medical solution morning Branch and 2 mL in the evening. ipratropium 2022-0 Yes [id number] .5mg Inhale 2.5 [facility] 0.02 % 1-05 mL every 4 ity of nebulizer 00:00: (four) [place] solution 00 hours as Medical needed for Branch Wheezing or Shortness of Breath. albuterol Yes [id number] 2{puff} Inhale 2 [facility] 90 1-05 Puffs ity of mcg/actuati 00:00: every 6 [place] as on inhaler 00 (six) Medical hours as Branch needed for Wheezing or Shortness of Breath. albuterol Yes [id number] 2.5mg Inhale 3 [facility] 2.5 mg /3 1-05 mL every 2 ity of mL (0.083 00:00: (two) [place] %) 00 hours as Medical nebulizer needed for Bran ch solution Shortness of Breath or Wheezing. cloNIDine Yes [id number] .2mg Take 1 [facility] nivers 0.2 mg 1-05 tablet by ity of tablet 00:00: mouth 3 [place] 00 (three) Medical times Branch daily as needed (Uncontrol led Hypertensi on). Take 1 Tab if BP > 150/90 NIFEdipine Yes [id number] 30mg Take 1 [facility] nivers ER 30 mg 1-05 tablet by ity of tablet 00:00: mouth in [place] 00 the Medical morning. Branch levothyroxi Yes [id number] 150ug Take 1 [facility] ne 150 mcg 1-05 tablet by ity of tablet 00:00: mouth [place] 00 every Medical morning. Branch tamsulosin Yes [id number] .4mg Take 1 [facility] 0.4 mg 24 1-05 9102 capsule by ity of hr capsule 00:00: mouth in [place] as 00 the Medical morning. Branch budesonide Yes [id number] .5mg Inhale 2 [facility] 0.5 mg/2 mL 1-05 mL in the ity of nebulizer 00:00: morning [place] solution 00 and 2 mL Medical in the Branch evening. traZODone 0 Yes [id number] 50mg Take 1 [facility] nivers 50 mg 1-05 tablet by ity of tablet 00:00: mouth at [place] 00 bedtime. Medical Branch doxepin 25 0 Yes [id number] 25mg Take 1 [facility] mg capsule 1-05 capsule by ity of 00:00: mouth at [place] 00 bedtime. Medical Branch glipiZIDE Yes [id number] 2.5mg Take 1 U nivers XL 2.5 [...] Dr Rx, ~2 mths ago arformotero Yes [id number] 15ug Use 2 mL [facility] L 15 mcg/2 1-05 as ity of mL 00:00: directed [place] nebulizer 00 in the Medical solution morning Branch and 2 mL in the evening. ipratropium Yes [id number] .5mg Inhale 2.5 [facility] 0.02 % 1-05 mL every 4 ity of nebulizer 00:00: (four) [place] solution 00 hours as Medical needed for Branch Wheezing or Shortness of Breath. albuterol Yes [id number] 2{puff} Inhale 2 [facility] 90 1-05 Puffs ity of mcg/actuati 00:00: every 6 [place] as on inhaler 00 (six) Medical hours as Branch needed for Wheezing or Shortness of Breath. albuterol Yes [id number] 2.5mg Inhale 3 [facility] 2.5 mg /3 1-05 mL every 2 ity of mL (0.083 00:00: (two) [place] %) 00 hours as Medical nebulizer needed for Bran ch solution Shortness of Breath or Wheezing. cloNIDine Yes [id number] .2mg Take 1 [facility] nivers 0.2 mg 1-05 tablet by ity of tablet 00:00: mouth 3 [place] 00 (three) Medical times Branch daily as needed (Uncontrol led Hypertensi on). Take 1 Tab if BP > 150/90 NIFEdipine Yes [id number] 30mg Take 1 U nivers ER 30 mg 1-05 tablet by ity of tablet 00:00: mouth in [place] 00 the Medical morning. Branch levothyroxi Yes [id number] 150ug Take 1 [facility] ne 150 mcg 1-05 tablet by ity of tablet 00:00: mouth [place] 00 every Medical morning. Branch tamsulosin Yes [id number] .4mg Take 1 [facility] 0.4 mg 24 1-05 9102 capsule by ity of hr capsule 00:00: mouth in [place] as 00 the Medical morning. Branch budesonide Yes [id number] .5mg Inhale 2 [facility] 0.5 mg/2 mL 1-05 mL in the ity of nebulizer 00:00: morning [place] solution 00 and 2 mL Medical in the Branch evening. traZODone Yes [id number] 50mg Take 1 [facility] nivers 50 mg 1-05 tablet by ity of tablet 00:00: mouth at [place] 00 bedtime. Medical Branch doxepin 25 Yes [id number] 25mg Take 1 [facility] mg capsule 1-05 capsule by ity of 00:00: mouth at [place] 00 bedtime. Medical Branch glipiZIDE Yes [id number] 2.5mg Take 1 [facility] nivers XL 2.5 [...] Rx, ~2 mths ago arformotero 0 Yes [id number] 15ug Use 2 mL [facility] L 15 mcg/2 1-05 as ity of mL 00:00: directed [place] nebulizer 00 in the Medical solution morning Branch and 2 mL in the evening. ipratropium Yes [id number] .5mg Inhale 2.5 [facility] 0.02 % 1-05 mL every 4 ity of nebulizer 00:00: (four) [place] solution 00 hours as Medical needed for Branch Wheezing or Shortness of Breath. albuterol 0 Yes [id number] 2{puff} Inhale 2 [facility] 90 1-05 Puffs ity of mcg/actuati 00:00: every 6 [place] as on inhaler 00 (six) Medical hours as Branch needed for Wheezing or Shortness of Breath. albuterol 0 Yes [id number] 2.5mg Inhale 3 [facility] 2.5 mg /3 1-05 mL every 2 ity of mL (0.083 00:00: (two) [place] %) 00 hours as Medical nebulizer needed for Bran ch solution Shortness of Breath or Wheezing. cloNIDine 0 Yes [id number] .2mg Take 1 [facility] nivers 0.2 mg 1-05 tablet by ity of tablet 00:00: mouth 3 [place] 00 (three) Medical times Branch daily as needed (Uncontrol led Hypertensi on). Take 1 Tab if BP > 150/90 NIFEdipine 0 Yes [id number] 30mg Take 1 U nivers ER 30 mg 1-05 tablet by ity of tablet 00:00: mouth in [place] 00 the Medical morning. Branch levothyroxi Yes [id number] 150ug Take 1 [facility] ne 150 mcg 1-05 tablet by ity of tablet 00:00: mouth [place] 00 every Medical morning. Branch tamsulosin Yes [id number] .4mg Take 1 [facility] 0.4 mg 24 1-05 9102 capsule by ity of hr capsule 00:00: mouth in [place] as 00 the Medical morning. Branch budesonide Yes [id number] .5mg Inhale 2 [facility] 0.5 mg/2 mL 1-05 mL in the ity of nebulizer 00:00: morning [place] solution 00 and 2 mL Medical in the Branch evening. traZODone 0 Yes [id number] 50mg Take 1 U nivers 50 mg 1-05 tablet by ity of tablet 00:00: mouth at [place] 00 bedtime. Medical Branch doxepin 25 0 Yes [id number] 25mg Take 1 [facility] mg capsule 1-05 capsule by ity of 00:00: mouth at [place] 00 bedtime. Medical Branch glipiZIDE 0 Yes [id number] 2.5mg Take 1 U nivers XL 2.5 [...] Rx, ~2 mths ago arformotero 2022- Yes [id number] 15ug Use 2 mL [facility] L 15 mcg/2 1-05 as ity of mL 00:00: directed [place] nebulizer 00 in the Medical solution morning Branch and 2 mL in the evening. ipratropium 2022-0 Yes [id number] .5mg Inhale 2.5 [facility] 0.02 % 1-05 mL every 4 ity of nebulizer 00:00: (four) [place] solution 00 hours as Medical needed for Branch Wheezing or Shortness of Breath. albuterol Yes [id number] 2{puff} Inhale 2 [facility] 90 1-05 Puffs ity of mcg/actuati 00:00: every 6 [place] as on inhaler 00 (six) Medical hours as Branch needed for Wheezing or Shortness of Breath. albuterol Yes [id number] 2.5mg Inhale 3 [facility] 2.5 mg /3 1-05 mL every 2 ity of mL (0.083 00:00: (two) [place] ) 00 hours as Medical nebulizer needed for Bran ch solution Shortness of Breath or Wheezing. cloNIDine Yes [id number] .2mg Take 1 [facility] nivers 0.2 mg 1-05 tablet by ity of tablet 00:00: mouth 3 [place] 00 (three) Medical times Branch daily as needed (Uncontrol led Hypertensi on). Take 1 Tab if BP > 150/90 NIFEdipine 2022-0 Yes [id number] 30mg Take 1 U nivers ER 30 mg 1-05 tablet by ity of tablet 00:00: mouth in [place] 00 the Medical morning. Branch levothyroxi 2022- Yes [id number] 150ug Take 1 [facility] ne 150 mcg 1-05 tablet by ity of tablet 00:00: mouth [place] 00 every Medical morning. Branch tamsulosin 0 Yes [id number] .4mg Take 1 [facility] 0.4 mg 24 1-05 9102 capsule by ity of hr capsule 00:00: mouth in [place] as 00 the Medical morning. Branch budesonide 0 Yes [id number] .5mg Inhale 2 [facility] 0.5 mg/2 mL 1-05 mL in the ity of nebulizer 00:00: morning [place] solution 00 and 2 mL Medical in the Branch evening. traZODone 0 Yes [id number] 50mg Take 1 [facility] nivers 50 mg 1-05 tablet by ity of tablet 00:00: mouth at [place] 00 bedtime. Medical Branch doxepin 25 0 Yes [id number] 25mg Take 1 [facility] mg capsule 1-05 capsule by ity of 00:00: mouth at [place] 00 bedtime. Medical Branch glipiZIDE 0 Yes [id number] 2.5mg Take 1 U nivers XL 2.5 [...] Dr Rx, ~2 mths ago arformotero Yes [id number] 15ug Use 2 mL [facility] L 15 mcg/2 1-05 as ity of mL 00:00: directed [place] nebulizer 00 in the Medical solution morning Branch and 2 mL in the evening. ipratropium Yes [id number] .5mg Inhale 2.5 [facility] 0.02 % 1-05 mL every 4 ity of nebulizer 00:00: (four) [place] solution 00 hours as Medical needed for Branch Wheezing or Shortness of Breath. albuterol 0 Yes [id number] 2{puff} Inhale 2 [facility] 90 1-05 Puffs ity of mcg/actuati 00:00: every 6 [place] as on inhaler 00 (six) Medical hours as Branch needed for Wheezing or Shortness of Breath. albuterol Yes [id number] 2.5mg Inhale 3 [facility] 2.5 mg /3 1-05 mL every 2 ity of mL (0.083 00:00: (two) [place] %) 00 hours as Medical nebulizer needed for Bran ch solution Shortness of Breath or Wheezing. cloNIDine 0 Yes [id number] .2mg Take 1 [facility] nivers 0.2 mg 1-05 tablet by ity of tablet 00:00: mouth 3 [place] 00 (three) Medical times Branch daily as needed (Uncontrol led Hypertensi on). Take 1 Tab if BP > 150/90 NIFEdipine 2022-0 Yes [id number] 30mg Take 1 U nivers ER 30 mg 1-05 tablet by ity of tablet 00:00: mouth in [place] 00 the Medical morning. Branch levothyroxi 2022-0 Yes [id number] 150ug Take 1 [facility] ne 150 mcg 1-05 tablet by ity of tablet 00:00: mouth [place] 00 every Medical morning. Branch tamsulosin 2022-0 Yes [id number] .4mg Take 1 [facility] 0.4 mg 24 1-05 9102 capsule by ity of hr capsule 00:00: mouth in [place] as 00 the Medical morning. Branch budesonide 2022-0 Yes [id number] .5mg Inhale 2 [facility] 0.5 mg/2 mL 1-05 mL in the ity of nebulizer 00:00: morning [place] solution 00 and 2 mL Medical in the Branch evening. traZODone 2022-0 Yes [id number] 50mg Take 1 U nivers 50 mg 1-05 tablet by ity of tablet 00:00: mouth at [place] 00 bedtime. Medical Branch doxepin 25 2022-0 Yes [id number] 25mg Take 1 [facility] mg capsule 1-05 capsule by ity of 00:00: mouth at [place] 00 bedtime. Medical Branch glipiZIDE 2022-0 Yes [id number] 2.5mg Take 1 [facility] nivers XL 2.5 mg 1-05 tablet by ity o f 24 hr 00:00: mouth in [place] tablet 00 the Medical morning Branch and 1 tablet in the evening. bumetanide 2022-0 Yes 1mg Take 1 [facility] rs 1 mg tablet 1-05 tablet by ity of 00:00: mouth [place] 00 every Medical morning Branch and evening. Indication s: reports kidney Dr Rx, ~2 mths ago arformotero 2022-0 Yes [id number] 15ug Use 2 mL [facility] L 15 mcg/2 1-05 as ity of mL 00:00: directed [place] nebulizer 00 in the Medical solution morning Branch and 2 mL in the evening. ipratropium 2022-0 Yes [id number] .5mg Inhale 2.5 [facility] 0.02 % 1-05 mL every 4 ity of nebulizer 00:00: (four) [place] solution 00 hours as Medical needed for Branch Wheezing or Shortness of Breath. albuterol Yes [id number] 2{puff} Inhale 2 [facility] 90 1-05 Puffs ity of mcg/actuati 00:00: every 6 [place] as on inhaler 00 (six) Medical hours as Branch needed for Wheezing or Shortness of Breath. albuterol Yes [id number] 2.5mg Inhale 3 [facility] 2.5 mg /3 1-05 mL every 2 ity of mL (0.083 00:00: (two) [place] %) 00 hours as Medical nebulizer needed for Bran ch solution Shortness of Breath or Wheezing. cloNIDine Yes [id number] .2mg Take 1 [facility] nivers 0.2 mg 1-05 tablet by ity of tablet 00:00: mouth 3 [place] 00 (three) Medical times Branch daily as needed (Uncontrol led Hypertensi on). Take 1 Tab if BP > 150/90 NIFEdipine Yes [id number] 30mg Take 1 U nivers ER 30 mg 1-05 tablet by ity of tablet 00:00: mouth in [place] 00 the Medical morning. Branch levothyroxi Yes [id number] 150ug Take 1 [facility] ne 150 mcg 1-05 tablet by ity of tablet 00:00: mouth [place] 00 every Medical morning. Branch tamsulosin Yes [id number] .4mg Take 1 [facility] 0.4 mg 24 1-05 9102 capsule by ity of hr capsule 00:00: mouth in [place] as 00 the Medical morning. Branch budesonide Yes [id number] .5mg Inhale 2 [facility] 0.5 mg/2 mL 1-05 mL in the ity of nebulizer 00:00: morning [place] solution 00 and 2 mL Medical in the Branch evening. traZODone 0 Yes [id number] 50mg Take 1 U nivers 50 mg 1-05 tablet by ity of tablet 00:00: mouth at [place] 00 bedtime. Medical Branch doxepin 25 2022-0 Yes [id number] 25mg Take 1 [facility] mg capsule 1-05 capsule by ity of 00:00: mouth at [place] 00 bedtime. Medical Branch glipiZIDE 2022-0 Yes [id number] 2.5mg Take 1 [facility] nivers XL 2.5 mg 1-05 tablet by ity o f 24 hr 00:00: mouth in [place] tablet 00 the Medical morning Branch and 1 tablet in the evening. bumetanide Yes 1mg Take 1 [facility] rs 1 mg tablet 1-05 tablet by ity of 00:00: mouth [place] 00 every Medical morning Branch and evening. Indication s: reports kidney Dr Rx, ~2 mths ago arformotero 2022-0 Yes [id number] 15ug Use 2 mL [facility] L 15 mcg/2 1-05 as ity of mL 00:00: directed [place] nebulizer 00 in the Medical solution morning Branch and 2 mL in the evening. ipratropium Yes [id number] .5mg Inhale 2.5 [facility] 0.02 % 1-05 mL every 4 ity of nebulizer 00:00: (four) [place] solution 00 hours as Medical needed for Branch Wheezing or Shortness of Breath. albuterol Yes [id number] 2{puff} Inhale 2 [facility] 90 1-05 Puffs ity of mcg/actuati 00:00: every 6 [place] as on inhaler 00 (six) Medical hours as Branch needed for Wheezing or Shortness of Breath. cloNIDine Yes [id number] .2mg Take 1 [facility] nivers 0.2 mg 1-05 tablet by ity of tablet 00:00: mouth 3 [place] 00 (three) Medical times Branch daily as needed (Uncontrol led Hypertensi on). Take 1 Tab if BP > 150/90 NIFEdipine 2022-0 Yes [id number] 30mg Take 1 U nivers ER 30 mg 1-05 tablet by ity of tablet 00:00: mouth in [place] 00 the Medical morning. Branch levothyroxi 2022-0 Yes [id number] 150ug Take 1 [facility] ne 150 mcg 1-05 tablet by ity of tablet 00:00: mouth [place] 00 every Medical morning. Branch tamsulosin 0 Yes [id number] .4mg Take 1 [facility] 0.4 mg 24 1-05 9102 capsule by ity of hr capsule 00:00: mouth in [place] as 00 the Medical morning. Branch budesonide 2022-0 Yes [id number] .5mg Inhale 2 [facility] 0.5 mg/2 mL 1-05 mL in the ity of nebulizer 00:00: morning [place] solution 00 and 2 mL Medical in the Branch evening. traZODone Yes [id number] 50mg Take 1 [facility] nivers 50 mg 1-05 tablet by ity of tablet 00:00: mouth at [place] [address] bedtime. Medical Branch doxepin 25 Yes [id number] 25mg Take 1 [facility] mg capsule 1-05 capsule by ity of 00:00: mouth at [place] [address] bedtime. Medical Branch glipiZIDE Yes [id number] 2.5mg Take 1 U nivers XL 2.5 mg 1-05 tablet by ity o f 24 hr 00:00: mouth in [place] tablet 00 the Medical morning Branch and 1 tablet in the evening. bumetanide Yes 1mg Take 1 [facility] rs 1 mg tablet 1-05 tablet by ity of 00:00: mouth [place] 00 every Medical morning Branch and evening. Indication s: reports kidney Dr Rx, ~2 mths ago arformotero Yes [id number] 15ug Use 2 mL [facility] L 15 mcg/2 1-05 as ity of mL 00:00: directed [place] nebulizer 00 in the Medical solution morning Branch and 2 mL in the evening. ipratropium Yes [id number] .5mg Inhale 2.5 [facility] 0.02 % 1-05 mL every 4 ity of nebulizer 00:00: (four) [place] solution 00 hours as Medical needed for Branch Wheezing or Shortness of Breath. albuterol Yes [id number] 2{puff} Inhale 2 [facility] 90 1-05 Puffs ity of mcg/actuati 00:00: every 6 [place] as on inhaler 00 (six) Medical hours as Branch needed for Wheezing or Shortness of Breath. cloNIDine Yes [id number] .2mg Take 1 [facility] nivers 0.2 mg 1-05 tablet by ity of tablet 00:00: mouth 3 [place] 00 (three) Medical times Branch daily as needed (Uncontrol led Hypertensi on). Take 1 Tab if BP > 150/90 NIFEdipine 0 Yes [id number] 30mg Take 1 U nivers ER 30 mg 1-05 tablet by ity of tablet 00:00: mouth in [place] 00 the Medical morning. Branch levothyroxi Yes [id number] 150ug Take 1 [facility] ne 150 mcg 1-05 tablet by ity of tablet 00:00: mouth [place] 00 every Medical morning. Branch tamsulosin Yes [id number] .4mg Take 1 [facility] 0.4 mg 24 1-05 9102 capsule by ity of hr capsule 00:00: mouth in [place] as 00 the Medical morning. Branch budesonide Yes [id number] .5mg Inhale 2 [facility] 0.5 mg/2 mL 1-05 mL in the ity of nebulizer 00:00: morning [place] solution 00 and 2 mL Medical in the Branch evening. traZODone Yes [id number] 50mg Take 1 [facility] nivers 50 mg 1-05 tablet by ity of tablet 00:00: mouth at [place] 00 bedtime. Medical Branch glipiZIDE Yes [id number] 2.5mg Take 1 U nivers XL 2.5 mg 1-05 tablet by ity o f 24 hr 00:00: mouth in [place] tablet 00 the Medical morning Branch and 1 tablet in the evening. arformotero Yes [id number] 15ug Use 2 mL [facility] L 15 mcg/2 1-05 as ity of mL 00:00: directed [place] nebulizer 00 in the Medical solution morning Branch and 2 mL in the evening. ipratropium Yes [id number] .5mg Inhale 2.5 [facility] 0.02 % 1-05 mL every 4 ity of nebulizer 00:00: (four) [place] solution 00 hours as Medical needed for Branch Wheezing or Shortness of Breath. albuterol Yes [id number] 2{puff} Inhale 2 [facility] 90 1-05 Puffs ity of mcg/actuati 00:00: every 6 [place] as on inhaler 00 (six) Medical hours as Branch needed for Wheezing or Shortness of Breath. cloNIDine Yes [id number] .2mg Take 1 [facility] nivers 0.2 mg 1-05 tablet by ity of tablet 00:00: mouth 3 [place] 00 (three) Medical times Branch daily as needed (Uncontrol led Hypertensi on). Take 1 Tab if BP > 150/90 levothyroxi Yes [id number] 150ug Take 1 [facility] ne 150 mcg 1-05 tablet by it[facility] of tablet 00:00: mouth [place] 00 every Medical morning. Branch tamsulosin Yes [id number] .4mg Take 1 [facility] 0.4 mg 24 1-05 9102 capsule by ity of hr capsule 00:00: mouth in [place] as 00 the Medical morning. Branch budesonide Yes [id number] .5mg Inhale 2 [facility] 0.5 mg/2 mL 1-05 mL in the ity of nebulizer 00:00: morning [place] solution 00 and 2 mL Medical in the Branch evening. traZODone Yes [id number] 50mg Take 1 [facility] nivers 50 mg 1-05 tablet by [facility] of tablet 00:00: mouth at [place] 00 bedtime. Medical Branch glipiZIDE Yes [id number] 2.5mg Take 1 [facility] n[facility] XL 2.5 mg 1-05 tablet by ity o f 24 hr 00:00: mouth in [place] tablet 00 the Medical morning Branch and 1 tablet in the evening. arformotero Yes [id number] 15ug Use 2 mL [facility] L 15 mcg/2 1-05 as ity of mL 00:00: directed [place] nebulizer 00 in the Medical solution morning Branch and 2 mL in the evening. ipratropium Yes [id number] .5mg Inhale 2.5 [facility] 0.02 % 1-05 mL every 4 ity of nebulizer 00:00: (four) [place] solution 00 hours as Medical needed for Branch Wheezing or Shortness of Breath. albuterol Yes [id number] 2{puff} Inhale 2 [facility] 90 1-05 Puffs ity of mcg/actuati 00:00: every 6 [place] as on inhaler 00 (six) Medical hours as Branch needed for Wheezing or Shortness of Breath. cloNIDine Yes [id number] .2mg Take 1 [facility] nivers 0.2 mg 1-05 tablet by ity of tablet 00:00: mouth 3 [place] 00 (three) Medical times Branch daily as needed (Uncontrol led Hypertensi on). Take 1 Tab if BP > 150/90 levothyroxi 0 Yes [id number] 150ug Take 1 [facility] ne 150 mcg 1-05 tablet by ity of tablet 00:00: mouth [place] 00 every Medical morning. Branch tamsulosin 0 Yes [id number] .4mg Take 1 [facility] 0.4 mg 24 1-05 9102 capsule by ity of hr capsule 00:00: mouth in [place] as 00 the Medical morning. Branch budesonide 0 Yes [id number] .5mg Inhale 2 [facility] 0.5 mg/2 mL 1-05 mL in the ity of nebulizer 00:00: morning [place] solution 00 and 2 mL Medical in the Branch evening. traZODone 2022-0 Yes [id number] 50mg Take 1 [facility] nivers 50 mg 1-05 tablet by it[facility] of tablet 00:00: mouth at [place] 00 bedtime. Medical Branch glipiZIDE Yes [id number] 2.5mg Take 1 [facility] n[facility] XL 2.5 mg 1-05 tablet by ity o f 24 hr 00:00: mouth in [place] tablet 00 the Medical morning Branch and 1 tablet in the evening. arformotero Yes [id number] 15ug Use 2 mL [facility] L 15 mcg/2 1-05 as ity of mL 00:00: directed [place] nebulizer 00 in the Medical solution morning Branch and 2 mL in the evening. ipratropium 0 Yes [id number] .5mg Inhale 2.5 [facility] 0.02 % 1-05 mL every 4 ity of nebulizer 00:00: (four) [place] solution 00 hours as Medical needed for Branch Wheezing or Shortness of Breath. albuterol 0 Yes [id number] 2{puff} Inhale 2 [facility] 90 1-05 Puffs ity of mcg/actuati 00:00: every 6 [place] as on inhaler 00 (six) Medical hours as Branch needed for Wheezing or Shortness of Breath. cloNIDine 0 Yes [id number] .2mg Take 1 [facility] n[facility] 0.2 mg 1-05 tablet by it[facility] of tablet 00:00: mouth 3 [place] 00 (three) Medical times Branch daily as needed (Uncontrol led Hypertensi on). Take 1 Tab if BP > 150/90 levothyroxi 2022-0 Yes [id number] 150ug Take 1 [facility] ne 150 mcg 1-05 tablet by ity of tablet 00:00: mouth [place] 00 every Medical morning. Branch tamsulosin Yes [id number] .4mg Take 1 [facility] 0.4 mg 24 1-05 9102 capsule by ity of hr capsule 00:00: mouth in [place] as 00 the Medical morning. Branch budesonide Yes [id number] .5mg Inhale 2 [facility] 0.5 mg/2 mL 1-05 mL in the ity of nebulizer 00:00: morning [place] solution 00 and 2 mL Medical in the Branch evening. traZODone Yes [id number] 50mg Take 1 [facility] 50 mg 1-05 tablet by [facility] of tablet 00:00: mouth at [place] 00 bedtime. Medical Branch glipiZIDE Yes [id number] 2.5mg Take 1 [facility] n[facility] XL 2.5 mg 1-05 tablet by ity o f 24 hr 00:00: mouth in [place] tablet 00 the Medical morning Branch and 1 tablet in the evening. arformotero Yes [id number] 15ug Use 2 mL [facility] L 15 mcg/2 1-05 as ity of mL 00:00: directed [place] nebulizer 00 in the Medical solution morning Branch and 2 mL in the evening. ipratropium Yes [id number] .5mg Inhale 2.5 [facility] 0.02 % 1-05 mL every 4 ity of nebulizer 00:00: (four) [place] solution 00 hours as Medical needed for Branch Wheezing or Shortness of Breath. albuterol Yes [id number] 2{puff} Inhale 2 [facility] 90 1-05 Puffs ity of mcg/actuati 00:00: every 6 [place] as on inhaler 00 (six) Medical hours as Branch needed for Wheezing or Shortness of Breath. cloNIDine Yes [id number] .2mg Take 1 [facility] nivers 0.2 mg 1-05 tablet by ity of tablet 00:00: mouth 3 [place] 00 (three) Medical times Branch daily as needed (Uncontrol led Hypertensi on). Take 1 Tab if BP > 150/90 NIFEdipine 0 Yes 30mg Take 1 [facility] rs ER 30 mg 1-05 tablet by it[facility] of tablet 00:00: mouth [place] 00 every Medical morning. Branch levothyroxi Yes [id number] 150ug Take 1 [facility] ne 150 mcg 1-05 tablet by ity of tablet 00:00: mouth [place] 00 every Medical morning. Branch tamsulosin Yes [id number] .4mg Take 1 [facility] 0.4 mg 24 1-05 9102 capsule by ity of hr capsule 00:00: mouth in [place] as 00 the Medical morning. Branch budesonide Yes [id number] .5mg Inhale 2 [facility] 0.5 mg/2 mL 1-05 mL in the ity of nebulizer 00:00: morning [place] solution 00 and 2 mL Medical in the Branch evening. traZODone Yes [id number] 50mg Take 1 [facility] nivers 50 mg 1-05 tablet by [facility] of tablet 00:00: mouth at [place] 00 bedtime. Medical Branch glipiZIDE Yes [id number] 2.5mg Take 1 [facility] n[facility] XL 2.5 mg 1-05 tablet by ity o f 24 hr 00:00: mouth in [place] tablet 00 the Medical morning Branch and 1 tablet in the evening. arformotero Yes [id number] 15ug Use 2 mL [facility] L 15 mcg/2 1-05 as ity of mL 00:00: directed [place] nebulizer 00 in the Medical solution morning Branch and 2 mL in the evening. ipratropium Yes [id number] .5mg Inhale 2.5 [facility] 0.02 % 1-05 mL every 4 ity of nebulizer 00:00: (four) [place] solution 00 hours as Medical needed for Branch Wheezing or Shortness of Breath. albuterol Yes [id number] 2{puff} Inhale 2 [facility] 90 1-05 Puffs ity of mcg/actuati 00:00: every 6 [place] as on inhaler 00 (six) Medical hours as Branch needed for Wheezing or Shortness of Breath. cloNIDine Yes [id number] .2mg Take 1 [facility] nivers 0.2 mg 1-05 tablet by ity of tablet 00:00: mouth 3 [place] 00 (three) Medical times Branch daily as needed (Uncontrol led Hypertensi on). Take 1 Tab if BP > 150/90 NIFEdipine 0 Yes 30mg Take 1 [facility] rs ER 30 mg 1-05 tablet by it[facility] of tablet 00:00: mouth [place] 00 every Medical morning. Branch levothyroxi Yes [id number] 150ug Take 1 [facility] ne 150 mcg 1-05 tablet by ity of tablet 00:00: mouth [place] 00 every Medical morning. Branch tamsulosin Yes [id number] .4mg Take 1 [facility] 0.4 mg 24 1-05 9102 capsule by ity of hr capsule 00:00: mouth in [place] as 00 the Medical morning. Branch budesonide Yes [id number] .5mg Inhale 2 [facility] 0.5 mg/2 mL 1-05 mL in the ity of nebulizer 00:00: morning [place] solution 00 and 2 mL Medical in the Branch evening. traZODone Yes [id number] 50mg Take 1 [facility] nivers 50 mg 1-05 tablet by [facility] of tablet 00:00: mouth at [place] 00 bedtime. Medical Branch glipiZIDE Yes [id number] 2.5mg Take 1 [facility] n[facility] XL 2.5 mg 1-05 tablet by ity o f 24 hr 00:00: mouth in [place] tablet 00 the Medical morning Branch and 1 tablet in the evening. arformotero Yes [id number] 15ug Use 2 mL [facility] L 15 mcg/2 1-05 as ity of mL 00:00: directed [place] nebulizer 00 in the Medical solution morning Branch and 2 mL in the evening. ipratropium 0 Yes [id number] .5mg Inhale 2.5 [facility] 0.02 % 1-05 mL every 4 ity of nebulizer 00:00: (four) [place] solution 00 hours as Medical needed for Branch Wheezing or Shortness of Breath. albuterol Yes [id number] 2{puff} Inhale 2 [facility] 90 1-05 Puffs ity of mcg/actuati 00:00: every 6 [place] as on inhaler 00 (six) Medical hours as Branch needed for Wheezing or Shortness of Breath. cloNIDine 0 Yes [id number] .2mg Take 1 [facility] n[facility] 0.2 mg 1-05 tablet by ity of tablet 00:00: mouth 3 [place] 00 (three) Medical times Branch daily as needed (Uncontrol led Hypertensi on). Take 1 Tab if BP > 150/90 NIFEdipine 2023-0 Yes 30mg Take 1 [facility] rs ER 30 mg 1-05 tablet by it[facility] of tablet 00:00: mouth [place] 00 every Medical morning. Branch levothyroxi 2022-0 Yes [id number] 150ug Take 1 [facility] ne 150 mcg 1-05 tablet by ity of tablet 00:00: mouth [place] 00 every Medical morning. Branch tamsulosin 2022-0 Yes [id number] .4mg Take 1 [facility] 0.4 mg 24 1-05 9102 capsule by ity of hr capsule 00:00: mouth in [place] as 00 the Medical morning. Branch budesonide 2022-0 Yes [id number] .5mg Inhale 2 [facility] 0.5 mg/2 mL 1-05 mL in the ity of nebulizer 00:00: morning [place] solution 00 and 2 mL Medical in the Branch evening. traZODone 2022-0 Yes [id number] 50mg Take 1 [facility] nivers 50 mg 1-05 tablet by ity of tablet 00:00: mouth at [place] 00 bedtime. Medical Branch glipiZIDE 2022-0 Yes [id number] 2.5mg Take 1 [facility] n[facility] XL 2.5 mg 1-05 tablet by ity o f 24 hr 00:00: mouth in [place] tablet 00 the Medical morning Branch and 1 tablet in the evening. arformotero 2022-0 Yes [id number] 15ug Use 2 mL [facility] L 15 mcg/2 1-05 as ity of mL 00:00: directed [place] nebulizer 00 in the Medical solution morning Branch and 2 mL in the evening. ipratropium 2022-0 Yes [id number] .5mg Inhale 2.5 [facility] 0.02 % 1-05 mL every 4 ity of nebulizer 00:00: (four) [place] solution 00 hours as Medical needed for Branch Wheezing or Shortness of Breath. albuterol 2022-0 Yes [id number] 2{puff} Inhale 2 [facility] 90 1-05 Puffs ity of mcg/actuati 00:00: every 6 [place] as on inhaler 00 (six) Medical hours as Branch needed for Wheezing or Shortness of Breath. cloNIDine 2022-0 Yes [id number] .2mg Take 1 [facility] nivers 0.2 mg 1-05 tablet by ity of tablet 00:00: mouth 3 [place] 00 (three) Medical times Branch daily as needed (Uncontrol led Hypertensi on). Take 1 Tab if BP > 150/90 NIFEdipine 0 Yes 30mg Take 1 [facility] rs ER 30 mg 1-05 tablet by ity of tablet 00:00: mouth [place] 00 every Medical morning. Branch levothyroxi 0 Yes [id number] 150ug Take 1 [facility] ne 150 mcg 1-05 tablet by ity of tablet 00:00: mouth [place] 00 every Medical morning. Branch tamsulosin Yes [id number] .4mg Take 1 [facility] 0.4 mg 24 1-05 9102 capsule by ity of hr capsule 00:00: mouth in [place] as 00 the Medical morning. Branch budesonide Yes [id number] .5mg Inhale 2 [facility] 0.5 mg/2 mL 1-05 mL in the ity of nebulizer 00:00: morning [place] solution 00 and 2 mL Medical in the Branch evening. traZODone Yes [id number] 50mg Take 1 [facility] nivers 50 mg 1-05 tablet by ity of tablet 00:00: mouth at [place] 00 bedtime. Medical Branch glipiZIDE Yes [id number] 2.5mg Take 1 [facility] n[facility] XL 2.5 mg 1-05 tablet by ity o f 24 hr 00:00: mouth in [place] tablet 00 the Medical morning Branch and 1 tablet in the evening. arformotero 0 Yes [id number] 15ug Use 2 mL [facility] L 15 mcg/2 1-05 as ity of mL 00:00: directed [place] nebulizer 00 in the Medical solution morning Branch and 2 mL in the evening. ipratropium 0 Yes [id number] .5mg Inhale 2.5 [facility] 0.02 % 1-05 mL every 4 ity of nebulizer 00:00: (four) [place] solution 00 hours as Medical needed for Branch Wheezing or Shortness of Breath. albuterol 0 Yes [id number] 2{puff} Inhale 2 [facility] 90 1-05 Puffs ity of mcg/actuati 00:00: every 6 [place] as on inhaler 00 (six) Medical hours as Branch needed for Wheezing or Shortness of Breath. cloNIDine 0 Yes [id number] .2mg Take 1 [facility] nivers 0.2 mg 1-05 tablet by ity of tablet 00:00: mouth 3 [place] 00 (three) Medical times Branch daily as needed (Uncontrol led Hypertensi on). Take 1 Tab if BP > 150/90 NIFEdipine 0 Yes 30mg Take 1 [facility] rs ER 30 mg 1-05 tablet by it[facility] of tablet 00:00: mouth [place] 00 every Medical morning. Branch levothyroxi 0 Yes [id number] 150ug Take 1 [facility] ne 150 mcg 1-05 tablet by ity of tablet 00:00: mouth [place] 00 every Medical morning. Branch tamsulosin Yes [id number] .4mg Take 1 [facility] 0.4 mg 24 1-05 9102 capsule by ity of hr capsule 00:00: mouth in [place] as 00 the Medical morning. Branch budesonide Yes [id number] .5mg Inhale 2 [facility] 0.5 mg/2 mL 1-05 mL in the ity of nebulizer 00:00: morning [place] solution 00 and 2 mL Medical in the Branch evening. traZODone 0 Yes [id number] 50mg Take 1 [facility] nivers 50 mg 1-05 tablet by ity of tablet 00:00: mouth at [place] 00 bedtime. Medical Branch glipiZIDE 0 Yes [id number] 2.5mg Take 1 [facility] n[facility] XL 2.5 mg 1-05 tablet by ity o f 24 hr 00:00: mouth in [place] tablet 00 the Medical morning Branch and 1 tablet in the evening. arformotero 2022-0 Yes [id number] 15ug Use 2 mL [facility] L 15 mcg/2 1-05 as ity of mL 00:00: directed [place] nebulizer 00 in the Medical solution morning Branch and 2 mL in the evening. ipratropium 2022-0 Yes [id number] .5mg Inhale 2.5 [facility] 0.02 % 1-05 mL every 4 ity of nebulizer 00:00: (four) [place] solution 00 hours as Medical needed for Branch Wheezing or Shortness of Breath. albuterol 0 Yes [id number] 2{puff} Inhale 2 [facility] 90 1-05 Puffs ity of mcg/actuati 00:00: every 6 [place] as on inhaler 00 (six) Medical hours as Branch needed for Wheezing or Shortness of Breath. cloNIDine Yes [id number] .2mg Take 1 [facility] nivers 0.2 mg 1-05 tablet by ity of tablet 00:00: mouth 3 [place] 00 (three) Medical times Branch daily as needed (Uncontrol led Hypertensi on). Take 1 Tab if BP > 150/90 NIFEdipine 0 Yes 30mg Take 1 [facility] rs ER 30 mg 1-05 tablet by ity of tablet 00:00: mouth [place] 00 every Medical morning. Branch levothyroxi Yes [id number] 150ug Take 1 [facility] ne 150 mcg 1-05 tablet by ity of tablet 00:00: mouth [place] 00 every Medical morning. Branch tamsulosin Yes [id number] .4mg Take 1 [facility] 0.4 mg 24 1-05 9102 capsule by ity of hr capsule 00:00: mouth in [place] as 00 the Medical morning. Branch budesonide Yes [id number] .5mg Inhale 2 [facility] 0.5 mg/2 mL 1-05 mL in the ity of nebulizer 00:00: morning [place] solution 00 and 2 mL Medical in the Branch evening. traZODone Yes [id number] 50mg Take 1 [facility] nivers 50 mg 1-05 tablet by ity of tablet 00:00: mouth at [place] 00 bedtime. Medical Branch glipiZIDE Yes [id number] 2.5mg Take 1 [facility] nivers XL 2.5 mg 1-05 tablet by ity o f 24 hr 00:00: mouth in [place] tablet 00 the Medical morning Branch and 1 tablet in the evening. arformotero Yes [id number] 15ug Use 2 mL [facility] L 15 mcg/2 1-05 as ity of mL 00:00: directed [place] nebulizer 00 in the Medical solution morning Branch and 2 mL in the evening. ipratropium 0 Yes [id number] .5mg Inhale 2.5 [facility] 0.02 % 1-05 mL every 4 ity of nebulizer 00:00: (four) [place] solution 00 hours as Medical needed for Branch Wheezing or Shortness of Breath. albuterol 0 Yes [id number] 2{puff} Inhale 2 [facility] 90 1-05 Puffs ity of mcg/actuati 00:00: every 6 [place] as on inhaler 00 (six) Medical hours as Branch needed for Wheezing or Shortness of Breath. cloNIDine 0 Yes [id number] .2mg Take 1 [facility] nivers 0.2 mg 1-05 tablet by ity of tablet 00:00: mouth 3 [place] 00 (three) Medical times Branch daily as needed (Uncontrol led Hypertensi on). Take 1 Tab if BP > 150/90 NIFEdipine 2022-0 Yes 30mg Take 1 [facility] rs ER 30 mg 1-05 tablet by ity of tablet 00:00: mouth [place] 00 every Medical morning. Branch levothyroxi 0 Yes [id number] 150ug Take 1 [facility] ne 150 mcg 1-05 tablet by ity of tablet 00:00: mouth [place] 00 every Medical morning. Branch tamsulosin Yes [id number] .4mg Take 1 [facility] 0.4 mg 24 1-05 9102 capsule by ity of hr capsule 00:00: mouth in [place] as 00 the Medical morning. Branch budesonide 0 Yes [id number] .5mg Inhale 2 [facility] 0.5 mg/2 mL 1-05 mL in the ity of nebulizer 00:00: morning [place] solution 00 and 2 mL Medical in the Branch evening. traZODone 2022-0 Yes [id number] 50mg Take 1 [facility] nivers 50 mg 1-05 tablet by ity of tablet 00:00: mouth at [place] 00 bedtime. Medical Branch glipiZIDE 2022-0 Yes [id number] 2.5mg Take 1 [facility] n[facility] XL 2.5 mg 1-05 tablet by ity o f 24 hr 00:00: mouth in [place] tablet 00 the Medical morning Branch and 1 tablet in the evening. arformotero 2022-0 Yes [id number] 15ug Use 2 mL [facility] L 15 mcg/2 1-05 as ity of mL 00:00: directed [place] nebulizer 00 in the Medical solution morning Branch and 2 mL in the evening. ipratropium 2022-0 Yes [id number] .5mg Inhale 2.5 [facility] 0.02 % 1-05 mL every 4 ity of nebulizer 00:00: (four) [place] solution 00 hours as Medical needed for Branch Wheezing or Shortness of Breath. albuterol 2023-0 Yes [id number] 2{puff} Inhale 2 [facility] 90 1-05 Puffs ity of mcg/actuati 00:00: every 6 [place] as on inhaler 00 (six) Medical hours as Branch needed for Wheezing or Shortness of Breath. cloNIDine 0 Yes [id number] .2mg Take 1 [facility] nivers 0.2 mg 1-05 tablet by ity of tablet 00:00: mouth 3 [place] 00 (three) Medical times Branch daily as needed (Uncontrol led Hypertensi on). Take 1 Tab if BP > 150/90 NIFEdipine 0 Yes 30mg Take 1 [facility] rs ER 30 mg 1-05 tablet by ity of tablet 00:00: mouth [place] 00 every Medical morning. Branch levothyroxi Yes [id number] 150ug Take 1 [facility] ne 150 mcg 1-05 tablet by ity of tablet 00:00: mouth [place] 00 every Medical morning. Branch tamsulosin Yes [id number] .4mg Take 1 [facility] 0.4 mg 24 1-05 9102 capsule by ity of hr capsule 00:00: mouth in [place] as 00 the Medical morning. Branch budesonide Yes [id number] .5mg Inhale 2 [facility] 0.5 mg/2 mL 1-05 mL in the ity of nebulizer 00:00: morning [place] solution 00 and 2 mL Medical in the Branch evening. traZODone 0 Yes [id number] 50mg Take 1 [facility] nivers 50 mg 1-05 tablet by ity of tablet 00:00: mouth at [place] 00 bedtime. Medical Branch glipiZIDE 0 Yes [id number] 2.5mg Take 1 [facility] nivers XL 2.5 mg 1-05 tablet by ity o f 24 hr 00:00: mouth in [place] tablet 00 the Medical morning Branch and 1 tablet in the evening. arformotero 0 Yes [id number] 15ug Use 2 mL [facility] L 15 mcg/2 1-05 as ity of mL 00:00: directed [place] nebulizer 00 in the Medical solution morning Branch and 2 mL in the evening. ipratropium 2022-0 Yes [id number] .5mg Inhale 2.5 [facility] 0.02 % 1-05 mL every 4 ity of nebulizer 00:00: (four) [place] solution 00 hours as Medical needed for Branch Wheezing or Shortness of Breath. albuterol Yes [id number] 2{puff} Inhale 2 [facility] 90 1-05 Puffs ity of mcg/actuati 00:00: every 6 [place] as on inhaler 00 (six) Medical hours as Branch needed for Wheezing or Shortness of Breath. cloNIDine 0 Yes [id number] .2mg Take 1 [facility] nivers 0.2 mg 1-05 tablet by ity of tablet 00:00: mouth 3 [place] 00 (three) Medical times Branch daily as needed (Uncontrol led Hypertensi on). Take 1 Tab if BP > 150/90 NIFEdipine 0 Yes 30mg Take 1 [facility] rs ER 30 mg 1-05 tablet by ity of tablet 00:00: mouth [place] 00 every Medical morning. Branch levothyroxi Yes [id number] 150ug Take 1 [facility] ne 150 mcg 1-05 tablet by ity of tablet 00:00: mouth [place] 00 every Medical morning. Branch tamsulosin Yes [id number] .4mg Take 1 [facility] 0.4 mg 24 1-05 9102 capsule by ity of hr capsule 00:00: mouth in [place] as 00 the Medical morning. Branch budesonide Yes [id number] .5mg Inhale 2 [facility] 0.5 mg/2 mL 1-05 mL in the ity of nebulizer 00:00: morning [place] solution 00 and 2 mL Medical in the Branch evening. traZODone 0 Yes [id number] 50mg Take 1 [facility] nivers 50 mg 1-05 tablet by ity of tablet 00:00: mouth at [place] 00 bedtime. Medical Branch glipiZIDE 0 Yes [id number] 2.5mg Take 1 [facility] nivers XL 2.5 mg 1-05 tablet by ity o f 24 hr 00:00: mouth in [place] tablet 00 the Medical morning Branch and 1 tablet in the evening. arformotero 0 Yes [id number] 15ug Use 2 mL [facility] L 15 mcg/2 1-05 as ity of mL 00:00: directed [place] nebulizer 00 in the Medical solution morning Branch and 2 mL in the evening. ipratropium 0 Yes [id number] .5mg Inhale 2.5 [facility] 0.02 % 1-05 mL every 4 ity of nebulizer 00:00: (four) [place] solution 00 hours as Medical needed for Branch Wheezing or Shortness of Breath. albuterol Yes [id number] 2{puff} Inhale 2 [facility] 90 1-05 Puffs ity of mcg/actuati 00:00: every 6 [place] as on inhaler 00 (six) Medical hours as Branch needed for Wheezing or Shortness of Breath. cloNIDine Yes [id number] .2mg Take 1 [facility] nivers 0.2 mg 1-05 tablet by ity of tablet 00:00: mouth 3 [place] 00 (three) Medical times Branch daily as needed (Uncontrol led Hypertensi on). Take 1 Tab if BP > 150/90 NIFEdipine 0 Yes 30mg Take 1 [facility] rs ER 30 mg 1-05 tablet by ity of tablet 00:00: mouth [place] 00 every Medical morning. Branch levothyroxi Yes [id number] 150ug Take 1 [facility] ne 150 mcg 1-05 tablet by ity of tablet 00:00: mouth [place] 00 every Medical morning. Branch tamsulosin Yes [id number] .4mg Take 1 [facility] 0.4 mg 24 1-05 9102 capsule by ity of hr capsule 00:00: mouth in [place] as 00 the Medical morning. Branch budesonide Yes [id number] .5mg Inhale 2 [facility] 0.5 mg/2 mL 1-05 mL in the ity of nebulizer 00:00: morning [place] solution 00 and 2 mL Medical in the Branch evening. traZODone Yes [id number] 50mg Take 1 [facility] nivers 50 mg 1-05 tablet by ity of tablet 00:00: mouth at [place] 00 bedtime. Medical Branch glipiZIDE Yes [id number] 2.5mg Take 1 [facility] nivers XL 2.5 mg 1-05 tablet by ity o f 24 hr 00:00: mouth in [place] tablet 00 the Medical morning Branch and 1 tablet in the evening. arformotero Yes [id number] 15ug Use 2 mL [facility] L 15 mcg/2 1-05 as ity of mL 00:00: directed [place] nebulizer 00 in the Medical solution morning Branch and 2 mL in the evening. ipratropium 2022-0 Yes [id number] .5mg Inhale 2.5 [facility] 0.02 % 1-05 mL every 4 ity of nebulizer 00:00: (four) [place] solution 00 hours as Medical needed for Branch Wheezing or Shortness of Breath. albuterol 2022-0 Yes [id number] 2{puff} Inhale 2 [facility] 90 1-05 Puffs ity of mcg/actuati 00:00: every 6 [place] as on inhaler 00 (six) Medical hours as Branch needed for Wheezing or Shortness of Breath. cloNIDine 2022-0 Yes [id number] .2mg Take 1 [facility] nivers 0.2 mg 1-05 tablet by ity of tablet 00:00: mouth 3 [place] 00 (three) Medical times Branch daily as needed (Uncontrol led Hypertensi on). Take 1 Tab if BP > 150/90 levothyroxi 2022-0 Yes [id number] 150ug Take 1 [facility] ne 150 mcg 1-05 tablet by ity of tablet 00:00: mouth [place] 00 every Medical morning. Branch tamsulosin 0 Yes [id number] .4mg Take 1 [facility] 0.4 mg 24 1-05 9102 capsule by ity of hr capsule 00:00: mouth in [place] as 00 the Medical morning. Branch budesonide 0 Yes [id number] .5mg Inhale 2 [facility] 0.5 mg/2 mL 1-05 mL in the ity of nebulizer 00:00: morning [place] solution 00 and 2 mL Medical in the Branch evening. traZODone 2022-0 Yes [id number] 50mg Take 1 [facility] nivers 50 mg 1-05 tablet by ity of tablet 00:00: mouth at [place] 00 bedtime. Medical Branch glipiZIDE 2022-0 Yes [id number] 2.5mg Take 1 [facility] nivers XL 2.5 mg 1-05 tablet by ity o f 24 hr 00:00: mouth in [place] tablet 00 the Medical morning Branch and 1 tablet in the evening. arformotero 2022-0 Yes [id number] 15ug Use 2 mL [facility] L 15 mcg/2 1-05 as ity of mL 00:00: directed [place] nebulizer 00 in the Medical solution morning Branch and 2 mL in the evening. ipratropium 0 Yes [id number] .5mg Inhale 2.5 [facility] 0.02 % 1-05 mL every 4 ity of nebulizer 00:00: (four) [place] solution 00 hours as Medical needed for Branch Wheezing or Shortness of Breath. albuterol 0 Yes [id number] 2{puff} Inhale 2 [facility] 90 1-05 Puffs ity of mcg/actuati 00:00: every 6 [place] as on inhaler 00 (six) Medical hours as Branch needed for Wheezing or Shortness of Breath. cloNIDine 0 Yes [id number] .2mg Take 1 [facility] nivers 0.2 mg 1-05 tablet by ity of tablet 00:00: mouth 3 [place] 00 (three) Medical times Branch daily as needed (Uncontrol led Hypertensi on). Take 1 Tab if BP > 150/90 NIFEdipine 0 Yes 30mg Take 1 Un[facility] rs ER 30 mg 1-05 tablet by ity of tablet 00:00: mouth [place] 00 every Medical morning. Branch levothyroxi Yes [id number] 150ug Take 1 [facility] ne 150 mcg 1-05 tablet by ity of tablet 00:00: mouth [place] 00 every Medical morning. Branch tamsulosin Yes [id number] .4mg Take 1 [facility] 0.4 mg 24 1-05 9102 capsule by ity of hr capsule 00:00: mouth in [place] as 00 the Medical morning. Branch budesonide 0 Yes [id number] .5mg Inhale 2 [facility] 0.5 mg/2 mL 1-05 mL in the ity of nebulizer 00:00: morning [place] solution 00 and 2 mL Medical in the Branch evening. traZODone 0 Yes [id number] 50mg Take 1 [facility] nivers 50 mg 1-05 tablet by ity of tablet 00:00: mouth at [place] 00 bedtime. Medical Branch glipiZIDE 0 Yes [id number] 2.5mg Take 1 U nivers XL 2.5 mg 1-05 tablet by ity o f 24 hr 00:00: mouth in [place] tablet 00 the Medical morning Branch and 1 tablet in the evening. arformotero 0 Yes [id number] 15ug Use 2 mL [facility] L 15 mcg/2 1-05 as ity of mL 00:00: directed [place] nebulizer 00 in the Medical solution morning Branch and 2 mL in the evening. ipratropium 0 Yes [id number] .5mg Inhale 2.5 [facility] 0.02 % 1-05 mL every 4 ity of nebulizer 00:00: (four) [place] solution 00 hours as Medical needed for Branch Wheezing or Shortness of Breath. albuterol 0 Yes [id number] 2{puff} Inhale 2 [facility] 90 1-05 Puffs ity of mcg/actuati 00:00: every 6 [place] as on inhaler 00 (six) Medical hours as Branch needed for Wheezing or Shortness of Breath. cloNIDine 0 Yes [id number] .2mg Take 1 U nivers 0.2 mg 1-05 tablet by ity of tablet 00:00: mouth 3 [place] 00 (three) Medical times Branch daily as needed (Uncontrol led Hypertensi on). Take 1 Tab if BP > 150/90 NIFEdipine 0 Yes 30mg Take 1 Un[facility] rs ER 30 mg 1-05 tablet by ity of tablet 00:00: mouth [place] 00 every Medical morning. Branch levothyroxi 0 Yes [id number] 150ug Take 1 [facility] ne 150 mcg 1-05 tablet by ity of tablet 00:00: mouth [place] 00 every Medical morning. Branch tamsulosin 0 Yes [id number] .4mg Take 1 [facility] 0.4 mg 24 1-05 9102 capsule by ity of hr capsule 00:00: mouth in [place] as 00 the Medical morning. Branch budesonide 0 Yes [id number] .5mg Inhale 2 [facility] 0.5 mg/2 mL 1-05 mL in the ity of nebulizer 00:00: morning [place] solution 00 and 2 mL Medical in the Branch evening. traZODone 2022-0 Yes [id number] 50mg Take 1 U nivers 50 mg 1-05 tablet by ity of tablet 00:00: mouth at [place] 00 bedtime. Medical Branch glipiZIDE 2022-0 Yes [id number] 2.5mg Take 1 U nivers XL 2.5 mg 1-05 tablet by ity o f 24 hr 00:00: mouth in [place] tablet 00 the Medical morning Branch and 1 tablet in the evening. arformotero 2023-0 Yes [id number] 15ug Use 2 mL [facility] L 15 mcg/2 1-05 as ity of mL 00:00: directed [place] nebulizer 00 in the Medical solution morning Branch and 2 mL in the evening. ipratropium 0 Yes [id number] .5mg Inhale 2.5 [facility] 0.02 % 1-05 mL every 4 ity of nebulizer 00:00: (four) [place] solution 00 hours as Medical needed for Branch Wheezing or Shortness of Breath. albuterol 0 Yes [id number] 2{puff} Inhale 2 [facility] 90 1-05 Puffs ity of mcg/actuati 00:00: every 6 [place] as on inhaler 00 (six) Medical hours as Branch needed for Wheezing or Shortness of Breath. cloNIDine Yes [id number] .2mg Take 1 [facility] nivers 0.2 mg 1-05 tablet by ity of tablet 00:00: mouth 3 [place] 00 (three) Medical times Branch daily as needed (Uncontrol led Hypertensi on). Take 1 Tab if BP > 150/90 NIFEdipine 0 Yes 30mg Take 1 [facility] rs ER 30 mg 1-05 tablet by ity of tablet 00:00: mouth [place] 00 every Medical morning. Branch levothyroxi Yes [id number] 150ug Take 1 [facility] ne 150 mcg 1-05 tablet by ity of tablet 00:00: mouth [place] 00 every Medical morning. Branch tamsulosin Yes [id number] .4mg Take 1 [facility] 0.4 mg 24 1-05 9102 capsule by ity of hr capsule 00:00: mouth in [place] as 00 the Medical morning. Branch budesonide 0 Yes [id number] .5mg Inhale 2 [facility] 0.5 mg/2 mL 1-05 mL in the ity of nebulizer 00:00: morning [place] solution 00 and 2 mL Medical in the Branch evening. traZODone 0 Yes [id number] 50mg Take 1 U nivers 50 mg 1-05 tablet by ity of tablet 00:00: mouth at [place] 00 bedtime. Medical Branch glipiZIDE 2022-0 Yes [id number] 2.5mg Take 1 U nivers XL 2.5 mg 1-05 tablet by ity o f 24 hr 00:00: mouth in [place] tablet 00 the Medical morning Branch and 1 tablet in the evening. arformotero 0 Yes [id number] 15ug Use 2 mL [facility] L 15 mcg/2 1-05 as ity of mL 00:00: directed [place] nebulizer 00 in the Medical solution morning Branch and 2 mL in the evening. ipratropium 0 Yes [id number] .5mg Inhale 2.5 [facility] 0.02 % 1-05 mL every 4 ity of nebulizer 00:00: (four) [place] solution 00 hours as Medical needed for Branch Wheezing or Shortness of Breath. albuterol 0 Yes [id number] 2{puff} Inhale 2 [facility] 90 1-05 Puffs ity of mcg/actuati 00:00: every 6 [place] as on inhaler 00 (six) Medical hours as Branch needed for Wheezing or Shortness of Breath. cloNIDine 0 Yes [id number] .2mg Take 1 [facility] nivers 0.2 mg 1-05 tablet by ity of tablet 00:00: mouth 3 [place] 00 (three) Medical times Branch daily as needed (Uncontrol led Hypertensi on). Take 1 Tab if BP > 150/90 NIFEdipine 0 Yes 30mg Take 1 [facility] rs ER 30 mg 1-05 tablet by ity of tablet 00:00: mouth [place] 00 every Medical morning. Branch levothyroxi 0 Yes [id number] 150ug Take 1 [facility] ne 150 mcg 1-05 tablet by ity of tablet 00:00: mouth [place] 00 every Medical morning. Branch tamsulosin 0 Yes [id number] .4mg Take 1 [facility] 0.4 mg 24 1-05 9102 capsule by ity of hr capsule 00:00: mouth in [place] as 00 the Medical morning. Branch budesonide 2022-0 Yes [id number] .5mg Inhale 2 [facility] 0.5 mg/2 mL 1-05 mL in the ity of nebulizer 00:00: morning [place] solution 00 and 2 mL Medical in the Branch evening. traZODone 2022-0 Yes [id number] 50mg Take 1 U nivers 50 mg 1-05 tablet by ity of tablet 00:00: mouth at [place] 00 bedtime. Medical Branch glipiZIDE 2022-0 Yes [id number] 2.5mg Take 1 U nivers XL 2.5 mg 1-05 tablet by ity o f 24 hr 00:00: mouth in [place] tablet 00 the Medical morning Branch and 1 tablet in the evening. arformotero 0 Yes [id number] 15ug Use 2 mL [facility] L 15 mcg/2 1-05 as ity of mL 00:00: directed [place] nebulizer 00 in the Medical solution morning Branch and 2 mL in the evening. ipratropium 0 Yes [id number] .5mg Inhale 2.5 [facility] 0.02 % 1-05 mL every 4 ity of nebulizer 00:00: (four) [place] solution 00 hours as Medical needed for Branch Wheezing or Shortness of Breath. albuterol 0 Yes [id number] 2{puff} Inhale 2 [facility] 90 1-05 Puffs ity of mcg/actuati 00:00: every 6 [place] as on inhaler 00 (six) Medical hours as Branch needed for Wheezing or Shortness of Breath. cloNIDine Yes [id number] .2mg Take 1 [facility] nivers 0.2 mg 1-05 tablet by ity of tablet 00:00: mouth 3 [place] 00 (three) Medical times Branch daily as needed (Uncontrol led Hypertensi on). Take 1 Tab if BP > 150/90 NIFEdipine Yes 30mg Take 1 [facility] rs ER 30 mg 1-05 tablet by ity of tablet 00:00: mouth [place] 00 every Medical morning. Branch levothyroxi 0 Yes [id number] 150ug Take 1 [facility] ne 150 mcg 1-05 tablet by ity of tablet 00:00: mouth [place] 00 every Medical morning. Branch tamsulosin 0 Yes [id number] .4mg Take 1 [facility] 0.4 mg 24 1-05 9102 capsule by ity of hr capsule 00:00: mouth in [place] as 00 the Medical morning. Branch budesonide 0 Yes [id number] .5mg Inhale 2 [facility] 0.5 mg/2 mL 1-05 mL in the ity of nebulizer 00:00: morning [place] solution 00 and 2 mL Medical in the Branch evening. traZODone 2022-0 Yes [id number] 50mg Take 1 [facility] nivers 50 mg 1-05 tablet by ity of tablet 00:00: mouth at [place] 00 bedtime. Medical Branch glipiZIDE Yes [id number] 2.5mg Take 1 [facility] nivers XL 2.5 mg 1-05 tablet by ity o f 24 hr 00:00: mouth in [place] tablet 00 the Medical morning Branch and 1 tablet in the evening. arformotero 0 Yes [id number] 15ug Use 2 mL [facility] L 15 mcg/2 1-05 as ity of mL 00:00: directed [place] nebulizer 00 in the Medical solution morning Branch and 2 mL in the evening. ipratropium Yes [id number] .5mg Inhale 2.5 [facility] 0.02 % 1-05 mL every 4 ity of nebulizer 00:00: (four) [place] solution 00 hours as Medical needed for Branch Wheezing or Shortness of Breath. albuterol Yes [id number] 2{puff} Inhale 2 [facility] 90 1-05 Puffs ity of mcg/actuati 00:00: every 6 [place] as on inhaler 00 (six) Medical hours as Branch needed for Wheezing or Shortness of Breath. cloNIDine Yes [id number] .2mg Take 1 [facility] nivers 0.2 mg 1-05 tablet by ity of tablet 00:00: mouth 3 [place] 00 (three) Medical times Branch daily as needed (Uncontrol led Hypertensi on). Take 1 Tab if BP > 150/90 NIFEdipine Yes 30mg Take 1 [facility] rs ER 30 mg 1-05 tablet by ity of tablet 00:00: mouth [place] 00 every Medical morning. Branch levothyroxi 0 Yes [id number] 150ug Take 1 [facility] ne 150 mcg 1-05 tablet by ity of tablet 00:00: mouth [place] 00 every Medical morning. Branch tamsulosin Yes [id number] .4mg Take 1 [facility] 0.4 mg 24 1-05 9102 capsule by ity of hr capsule 00:00: mouth in [place] as 00 the Medical morning. Branch budesonide 0 Yes [id number] .5mg Inhale 2 [facility] 0.5 mg/2 mL 1-05 mL in the ity of nebulizer 00:00: morning [place] solution 00 and 2 mL Medical in the Branch evening. traZODone 2022-0 Yes [id number] 50mg Take 1 [facility] nivers 50 mg 1-05 tablet by ity of tablet 00:00: mouth at [place] 00 bedtime. Medical Branch glipiZIDE Yes [id number] 2.5mg Take 1 [facility] nivers XL 2.5 mg 1-05 tablet by ity o f 24 hr 00:00: mouth in [place] tablet 00 the Medical morning Branch and 1 tablet in the evening. arformotero Yes [id number] 15ug Use 2 mL [facility] L 15 mcg/2 1-05 as ity of mL 00:00: directed [place] nebulizer 00 in the Medical solution morning Branch and 2 mL in the evening. ipratropium Yes [id number] .5mg Inhale 2.5 [facility] 0.02 % 1-05 mL every 4 ity of nebulizer 00:00: (four) [place] solution 00 hours as Medical needed for Branch Wheezing or Shortness of Breath. albuterol Yes [id number] 2{puff} Inhale 2 [facility] 90 1-05 Puffs ity of mcg/actuati 00:00: every 6 [place] as on inhaler 00 (six) Medical hours as Branch needed for Wheezing or Shortness of Breath. cloNIDine Yes [id number] .2mg Take 1 [facility] nivers 0.2 mg 1-05 tablet by ity of tablet 00:00: mouth 3 [place] 00 (three) Medical times Branch daily as needed (Uncontrol led Hypertensi on). Take 1 Tab if BP > 150/90 NIFEdipine 0 Yes 30mg Take 1 [facility] rs ER 30 mg 1-05 tablet by ity of tablet 00:00: mouth [place] 00 every Medical morning. Branch levothyroxi 0 Yes [id number] 150ug Take 1 [facility] ne 150 mcg 1-05 tablet by ity of tablet 00:00: mouth [place] 00 every Medical morning. Branch tamsulosin 0 Yes [id number] .4mg Take 1 [facility] 0.4 mg 24 1-05 9102 capsule by ity of hr capsule 00:00: mouth in [place] as 00 the Medical morning. Branch budesonide 0 Yes [id number] .5mg Inhale 2 [facility] 0.5 mg/2 mL 1-05 mL in the ity of nebulizer 00:00: morning [place] solution 00 and 2 mL Medical in the Branch evening. traZODone Yes [id number] 50mg Take 1 [facility] nivers 50 mg 1-05 tablet by ity of tablet 00:00: mouth at [place] 00 bedtime. Medical Branch glipiZIDE 0 Yes [id number] 2.5mg Take 1 U nivers XL 2.5 mg 1-05 tablet by ity o f 24 hr 00:00: mouth in [place] tablet 00 the Medical morning Branch and 1 tablet in the evening. arformotero Yes [id number] 15ug Use 2 mL [facility] L 15 mcg/2 1-05 as ity of mL 00:00: directed [place] nebulizer 00 in the Medical solution morning Branch and 2 mL in the evening. ipratropium 0 Yes [id number] .5mg Inhale 2.5 [facility] 0.02 % 1-05 mL every 4 ity of nebulizer 00:00: (four) [place] solution 00 hours as Medical needed for Branch Wheezing or Shortness of Breath. cloNIDine Yes [id number] .2mg Take 1 [facility] nivers 0.2 mg 1-05 tablet by ity of tablet 00:00: mouth 3 [place] 00 (three) Medical times Branch daily as needed (Uncontrol led Hypertensi on). Take 1 Tab if BP > 150/90 NIFEdipine 0 Yes 30mg Take 1 [facility] rs ER 30 mg 1-05 tablet by ity of tablet 00:00: mouth [place] 00 every Medical morning. Branch levothyroxi Yes [id number] 150ug Take 1 [facility] ne 150 mcg 1-05 tablet by ity of tablet 00:00: mouth [place] 00 every Medical morning. Branch tamsulosin 0 Yes [id number] .4mg Take 1 [facility] 0.4 mg 24 1-05 9102 capsule by ity of hr capsule 00:00: mouth in [place] as 00 the Medical morning. Branch budesonide 0 Yes [id number] .5mg Inhale 2 [facility] 0.5 mg/2 mL 1-05 mL in the ity of nebulizer 00:00: morning [place] solution 00 and 2 mL Medical in the Branch evening. traZODone 2022-0 Yes [id number] 50mg Take 1 [facility] nivers 50 mg 1-05 tablet by ity of tablet 00:00: mouth at [place] 00 bedtime. Medical Branch glipiZIDE 2022-0 Yes [id number] 2.5mg Take 1 U nivers XL 2.5 mg 1-05 tablet by ity o f 24 hr 00:00: mouth in [place] tablet 00 the Medical morning Branch and 1 tablet in the evening. arformotero 2022-0 Yes [id number] 15ug Use 2 mL [facility] L 15 mcg/2 1-05 as ity of mL 00:00: directed [place] nebulizer 00 in the Medical solution morning Branch and 2 mL in the evening. ipratropium 2022-0 Yes [id number] .5mg Inhale 2.5 [facility] 0.02 % 1-05 mL every 4 ity of nebulizer 00:00: (four) [place] solution 00 hours as Medical needed for Branch Wheezing or Shortness of Breath. cloNIDine 0 Yes [id number] .2mg Take 1 [facility] nivers 0.2 mg 1-05 tablet by ity of tablet 00:00: mouth 3 [place] 00 (three) Medical times Branch daily as needed (Uncontrol led Hypertensi on). Take 1 Tab if BP > 150/90 NIFEdipine 0 Yes 30mg Take 1 [facility] rs ER 30 mg 1-05 tablet by ity of tablet 00:00: mouth [place] 00 every Medical morning. Branch levothyroxi 0 Yes [id number] 150ug Take 1 [facility] ne 150 mcg 1-05 tablet by ity of tablet 00:00: mouth [place] 00 every Medical morning. Branch tamsulosin 0 Yes [id number] .4mg Take 1 [facility] 0.4 mg 24 1-05 9102 capsule by ity of hr capsule 00:00: mouth in [place] as 00 the Medical morning. Branch budesonide 2022-0 Yes [id number] .5mg Inhale 2 [facility] 0.5 mg/2 mL 1-05 mL in the ity of nebulizer 00:00: morning [place] solution 00 and 2 mL Medical in the Branch evening. traZODone 2022-0 Yes [id number] 50mg Take 1 [facility] nivers 50 mg 1-05 tablet by ity of tablet 00:00: mouth at [place] 00 bedtime. Medical Branch glipiZIDE 2022-0 Yes [id number] 2.5mg Take 1 [facility] nivers XL 2.5 mg 1-05 tablet by ity o f 24 hr 00:00: mouth in [place] tablet 00 the Medical morning Branch and 1 tablet in the evening. arformotero 0 Yes [id number] 15ug Use 2 mL [facility] L 15 mcg/2 1-05 as ity of mL 00:00: directed [place] nebulizer 00 in the Medical solution morning Branch and 2 mL in the evening. ipratropium 0 Yes [id number] .5mg Inhale 2.5 [facility] 0.02 % 1-05 mL every 4 ity of nebulizer 00:00: (four) [place] solution 00 hours as Medical needed for Branch Wheezing or Shortness of Breath. cloNIDine 0 Yes [id number] .2mg Take 1 [facility] nivers 0.2 mg 1-05 tablet by ity of tablet 00:00: mouth 3 [place] 00 (three) Medical times Branch daily as needed (Uncontrol led Hypertensi on). Take 1 Tab if BP > 150/90 NIFEdipine 0 Yes 30mg Take 1 [facility] rs ER 30 mg 1-05 tablet by ity of tablet 00:00: mouth [place] 00 every Medical morning. Branch levothyroxi Yes [id number] 150ug Take 1 [facility] ne 150 mcg 1-05 tablet by ity of tablet 00:00: mouth [place] 00 every Medical morning. Branch tamsulosin Yes [id number] .4mg Take 1 [facility] 0.4 mg 24 1-05 9102 capsule by ity of hr capsule 00:00: mouth in [place] as 00 the Medical morning. Branch budesonide 0 Yes [id number] .5mg Inhale 2 [facility] 0.5 mg/2 mL 1-05 mL in the ity of nebulizer 00:00: morning [place] solution 00 and 2 mL Medical in the Branch evening. traZODone 2022-0 Yes [id number] 50mg Take 1 U nivers 50 mg 1-05 tablet by ity of tablet 00:00: mouth at [place] 00 bedtime. Medical Branch glipiZIDE 2022-0 Yes [id number] 2.5mg Take 1 U nivers XL 2.5 mg 1-05 tablet by ity o f 24 hr 00:00: mouth in [place] tablet 00 the Medical morning Branch and 1 tablet in the evening. arformotero 2022-0 Yes [id number] 15ug Use 2 mL [facility] L 15 mcg/2 1-05 as ity of mL 00:00: directed [place] nebulizer 00 in the Medical solution morning Branch and 2 mL in the evening. ipratropium 2022-0 Yes [id number] .5mg Inhale 2.5 [facility] 0.02 % 1-05 mL every 4 ity of nebulizer 00:00: (four) [place] solution 00 hours as Medical needed for Branch Wheezing or Shortness of Breath. cloNIDine 0 Yes [id number] .2mg Take 1 [facility] nivers 0.2 mg 1-05 tablet by ity of tablet 00:00: mouth 3 [place] 00 (three) Medical times Branch daily as needed (Uncontrol led Hypertensi on). Take 1 Tab if BP > 150/90 NIFEdipine 0 Yes 30mg Take 1 [facility] rs ER 30 mg 1-05 tablet by ity of tablet 00:00: mouth [place] 00 every Medical morning. Branch levothyroxi 0 Yes [id number] 150ug Take 1 [facility] ne 150 mcg 1-05 tablet by ity of tablet 00:00: mouth [place] 00 every Medical morning. Branch tamsulosin 0 Yes [id number] .4mg Take 1 [facility] 0.4 mg 24 1-05 9102 capsule by ity of hr capsule 00:00: mouth in [place] as 00 the Medical morning. Branch budesonide 0 Yes [id number] .5mg Inhale 2 [facility] 0.5 mg/2 mL 1-05 mL in the ity of nebulizer 00:00: morning [place] solution 00 and 2 mL Medical in the Branch evening. traZODone 2022-0 Yes [id number] 50mg Take 1 U nivers 50 mg 1-05 tablet by ity of tablet 00:00: mouth at [place] 00 bedtime. Medical Branch glipiZIDE 2022-0 Yes [id number] 2.5mg Take 1 U nivers XL 2.5 mg 1-05 tablet by ity o f 24 hr 00:00: mouth in [place] tablet 00 the Medical morning Branch and 1 tablet in the evening. arformotero 2022-0 Yes [id number] 15ug Use 2 mL [facility] L 15 mcg/2 1-05 as ity of mL 00:00: directed [place] nebulizer 00 in the Medical solution morning Branch and 2 mL in the evening. ipratropium 0 Yes [id number] .5mg Inhale 2.5 [facility] 0.02 % 1-05 mL every 4 ity of nebulizer 00:00: (four) [place] solution 00 hours as Medical needed for Branch Wheezing or Shortness of Breath. cloNIDine 0 Yes [id number] .2mg Take 1 [facility] nivers 0.2 mg 1-05 tablet by ity of tablet 00:00: mouth 3 [place] 00 (three) Medical times Branch daily as needed (Uncontrol led Hypertensi on). Take 1 Tab if BP > 150/90 NIFEdipine 0 Yes 30mg Take 1 [facility] rs ER 30 mg 1-05 tablet by ity of tablet 00:00: mouth [place] 00 every Medical morning. Branch levothyroxi 0 Yes [id number] 150ug Take 1 [facility] ne 150 mcg 1-05 tablet by ity of tablet 00:00: mouth [place] 00 every Medical morning. Branch tamsulosin Yes [id number] .4mg Take 1 [facility] 0.4 mg 24 1-05 9102 capsule by ity of hr capsule 00:00: mouth in [place] as 00 the Medical morning. Branch budesonide Yes [id number] .5mg Inhale 2 [facility] 0.5 mg/2 mL 1-05 mL in the ity of nebulizer 00:00: morning [place] solution 00 and 2 mL Medical in the Branch evening. traZODone 0 Yes [id number] 50mg Take 1 [facility] nivers 50 mg 1-05 tablet by ity of tablet 00:00: mouth at [place] 00 bedtime. Medical Branch glipiZIDE 0 Yes [id number] 2.5mg Take 1 U nivers XL 2.5 mg 1-05 tablet by ity o f 24 hr 00:00: mouth in [place] tablet 00 the Medical morning Branch and 1 tablet in the evening. arformotero 2022-0 Yes [id number] 15ug Use 2 mL [facility] L 15 mcg/2 1-05 as ity of mL 00:00: directed [place] nebulizer 00 in the Medical solution morning Branch and 2 mL in the evening. ipratropium 2022-0 Yes [id number] .5mg Inhale 2.5 [facility] 0.02 % 1-05 mL every 4 ity of nebulizer 00:00: (four) [place] solution 00 hours as Medical needed for Branch Wheezing or Shortness of Breath. cloNIDine 0 Yes [id number] .2mg Take 1 [facility] nivers 0.2 mg 1-05 tablet by ity of tablet 00:00: mouth 3 [place] 00 (three) Medical times Branch daily as needed (Uncontrol led Hypertensi on). Take 1 Tab if BP > 150/90 NIFEdipine 2022-0 Yes 30mg Take 1 [facility] rs ER 30 mg 1-05 tablet by ity of tablet 00:00: mouth [place] 00 every Medical morning. Branch levothyroxi 0 Yes [id number] 150ug Take 1 [facility] ne 150 mcg 1-05 tablet by ity of tablet 00:00: mouth [place] 00 every Medical morning. Branch tamsulosin 0 Yes [id number] .4mg Take 1 [facility] 0.4 mg 24 1-05 9102 capsule by ity of hr capsule 00:00: mouth in [place] as 00 the Medical morning. Branch budesonide 0 Yes [id number] .5mg Inhale 2 [facility] 0.5 mg/2 mL 1-05 mL in the ity of nebulizer 00:00: morning [place] solution 00 and 2 mL Medical in the Branch evening. traZODone 2022-0 Yes [id number] 50mg Take 1 U nivers 50 mg 1-05 tablet by ity of tablet 00:00: mouth at [place] 00 bedtime. Medical Branch glipiZIDE 2022-0 Yes [id number] 2.5mg Take 1 U nivers XL 2.5 mg 1-05 tablet by ity o f 24 hr 00:00: mouth in [place] tablet 00 the Medical morning Branch and 1 tablet in the evening. arformotero 2022-0 Yes [id number] 15ug Use 2 mL [facility] L 15 mcg/2 1-05 as ity of mL 00:00: directed [place] nebulizer 00 in the Medical solution morning Branch and 2 mL in the evening. ipratropium 2022-0 Yes [id number] .5mg Inhale 2.5 [facility] 0.02 % 1-05 mL every 4 ity of nebulizer 00:00: (four) [place] solution 00 hours as Medical needed for Branch Wheezing or Shortness of Breath. cloNIDine 2022-0 Yes [id number] .2mg Take 1 [facility] nivers 0.2 mg 1-05 tablet by ity of tablet 00:00: mouth 3 [place] 00 (three) Medical times Branch daily as needed (Uncontrol led Hypertensi on). Take 1 Tab if BP > 150/90 NIFEdipine 2022-0 Yes 30mg Take 1 Un[facility] rs ER 30 mg 1-05 tablet by ity of tablet 00:00: mouth [place] 00 every Medical morning. Branch levothyroxi 2022-0 Yes [id number] 150ug Take 1 [facility] ne 150 mcg 1-05 tablet by ity of tablet 00:00: mouth [place] 00 every Medical morning. Branch tamsulosin 0 Yes [id number] .4mg Take 1 [facility] 0.4 mg 24 1-05 9102 capsule by ity of hr capsule 00:00: mouth in [place] as 00 the Medical morning. Branch budesonide 2022-0 Yes [id number] .5mg Inhale 2 [facility] 0.5 mg/2 mL 1-05 mL in the ity of nebulizer 00:00: morning [place] solution 00 and 2 mL Medical in the Branch evening. traZODone 2022-0 Yes [id number] 50mg Take 1 U nivers 50 mg 1-05 tablet by ity of tablet 00:00: mouth at [place] 00 bedtime. Medical Branch glipiZIDE 2022-0 Yes [id number] 2.5mg Take 1 U nivers XL 2.5 mg 1-05 tablet by ity o f 24 hr 00:00: mouth in [place] tablet 00 the Medical morning Branch and 1 tablet in the evening. arformotero 2022-0 Yes [id number] 15ug Use 2 mL [facility] L 15 mcg/2 1-05 as ity of mL 00:00: directed [place] nebulizer 00 in the Medical solution morning Branch and 2 mL in the evening. ipratropium 2022-0 Yes [id number] .5mg Inhale 2.5 [facility] 0.02 % 1-05 mL every 4 ity of nebulizer 00:00: (four) [place] solution 00 hours as Medical needed for Branch Wheezing or Shortness of Breath. cloNIDine 2022-0 Yes [id number] .2mg Take 1 [facility] nivers 0.2 mg 1-05 tablet by ity of tablet 00:00: mouth 3 [place] 00 (three) Medical times Branch daily as needed (Uncontrol led Hypertensi on). Take 1 Tab if BP > 150/90 NIFEdipine 2022-0 Yes 30mg Take 1 Un[facility] rs ER 30 mg 1-05 tablet by ity of tablet 00:00: mouth [place] 00 every Medical morning. Branch levothyroxi 2022-0 Yes [id number] 150ug Take 1 [facility] ne 150 mcg 1-05 tablet by ity of tablet 00:00: mouth [place] 00 every Medical morning. Branch tamsulosin 2022-0 Yes [id number] .4mg Take 1 [facility] 0.4 mg 24 1-05 9102 capsule by ity of hr capsule 00:00: mouth in [place] as 00 the Medical morning. Branch budesonide 2022-0 Yes [id number] .5mg Inhale 2 [facility] 0.5 mg/2 mL 1-05 mL in the ity of nebulizer 00:00: morning [place] solution 00 and 2 mL Medical in the Branch evening. traZODone 2022-0 Yes [id number] 50mg Take 1 [facility] nivers 50 mg 1-05 tablet by ity of tablet 00:00: mouth at [place] 00 bedtime. Medical Branch glipiZIDE 2022-0 Yes [id number] 2.5mg Take 1 U nivers XL 2.5 mg 1-05 tablet by ity o f 24 hr 00:00: mouth in [place] tablet 00 the Medical morning Branch and 1 tablet in the evening. arformotero 2022-0 Yes [id number] 15ug Use 2 mL [facility] L 15 mcg/2 1-05 as ity of mL 00:00: directed [place] nebulizer 00 in the Medical solution morning Branch and 2 mL in the evening. ipratropium 2022-0 Yes [id number] .5mg Inhale 2.5 [facility] 0.02 % 1-05 mL every 4 ity of nebulizer 00:00: (four) [place] solution 00 hours as Medical needed for Branch Wheezing or Shortness of Breath. cloNIDine 2022-0 Yes [id number] .2mg Take 1 [facility] nivers 0.2 mg 1-05 tablet by ity of tablet 00:00: mouth 3 [place] 00 (three) Medical times Branch daily as needed (Uncontrol led Hypertensi on). Take 1 Tab if BP > 150/90 NIFEdipine 2022-0 Yes 30mg Take 1 Un[facility] rs ER 30 mg 1-05 tablet by ity of tablet 00:00: mouth [place] 00 every Medical morning. Branch levothyroxi 2022-0 Yes [id number] 150ug Take 1 [facility] ne 150 mcg 1-05 tablet by ity of tablet 00:00: mouth [place] 00 every Medical morning. Branch tamsulosin 0 Yes [id number] .4mg Take 1 [facility] 0.4 mg 24 1-05 9102 capsule by ity of hr capsule 00:00: mouth in [place] as 00 the Medical morning. Branch budesonide 0 Yes [id number] .5mg Inhale 2 [facility] 0.5 mg/2 mL 1-05 mL in the ity of nebulizer 00:00: morning [place] solution 00 and 2 mL Medical in the Branch evening. traZODone 0 Yes [id number] 50mg Take 1 [facility] nivers 50 mg 1-05 tablet by ity of tablet 00:00: mouth at [place] 00 bedtime. Medical Branch glipiZIDE 2022-0 Yes [id number] 2.5mg Take 1 U nivers XL 2.5 mg 1-05 tablet by ity o f 24 hr 00:00: mouth in [place] tablet 00 the Medical morning Branch and 1 tablet in the evening. arformotero 0 Yes [id number] 15ug Use 2 mL [facility] L 15 mcg/2 1-05 as ity of mL 00:00: directed [place] nebulizer 00 in the Medical solution morning Branch and 2 mL in the evening. ipratropium 2022-0 Yes [id number] .5mg Inhale 2.5 [facility] 0.02 % 1-05 mL every 4 ity of nebulizer 00:00: (four) [place] solution 00 hours as Medical needed for Branch Wheezing or Shortness of Breath. cloNIDine 2022-0 Yes [id number] .2mg Take 1 [facility] nivers 0.2 mg 1-05 tablet by [facility] of tablet 00:00: mouth 3 [place] 00 (three) Medical times Branch daily as needed (Uncontrol led Hypertensi on). Take 1 Tab if BP > 150/90 NIFEdipine 2022-0 Yes 30mg Take 1 [facility] rs ER 30 mg 1-05 tablet by [facility] of tablet 00:00: mouth [place] 00 every Medical morning. Branch levothyroxi Yes [id number] 150ug Take 1 [facility] ne 150 mcg 1-05 tablet by [facility] of tablet 00:00: mouth [place] 00 every Medical morning. Branch tamsulosin 0 Yes [id number] .4mg Take 1 [facility] 0.4 mg 24 1-05 9102 capsule by ity of hr capsule 00:00: mouth in [place] as 00 the Medical morning. Branch budesonide 0 Yes [id number] .5mg Inhale 2 [facility] 0.5 mg/2 mL 1-05 mL in the ity of nebulizer 00:00: morning [place] solution 00 and 2 mL Medical in the Branch evening. traZODone 0 Yes [id number] 50mg Take 1 U nivers 50 mg 1-05 tablet by [facility] of tablet 00:00: mouth at [place] 00 bedtime. Medical Branch glipiZIDE 0 Yes [id number] 2.5mg Take 1 U nivers XL 2.5 mg 1-05 tablet by ity o f 24 hr 00:00: mouth in [place] tablet 00 the Medical morning Branch and 1 tablet in the evening. arformotero Yes [id number] 15ug Use 2 mL [facility] L 15 mcg/2 1-05 as ity of mL 00:00: directed [place] nebulizer 00 in the Medical solution morning Branch and 2 mL in the evening. ipratropium 0 Yes [id number] .5mg Inhale 2.5 [facility] 0.02 % 1-05 mL every 4 [facility]y of nebulizer 00:00: (four) [place] solution 00 hours as Medical needed for Branch Wheezing or Shortness of Breath. cloNIDine 0 Yes [id number] .2mg Take 1 [facility] nivers 0.2 mg 1-05 tablet by [facility] of tablet 00:00: mouth 3 [place] 00 (three) Medical times Branch daily as needed (Uncontrol led Hypertensi on). Take 1 Tab if BP > 150/90 NIFEdipine 0 Yes 30mg Take 1 [facility] rs ER 30 mg 1-05 tablet by [facility] of tablet 00:00: mouth [place] 00 every Medical morning. Branch levothyroxi 0 Yes [id number] 150ug Take 1 [facility] ne 150 mcg 1-05 tablet by [facility] of tablet 00:00: mouth [place] 00 every Medical morning. Branch tamsulosin 0 Yes [id number] .4mg Take 1 [facility] 0.4 mg 24 1-05 9102 capsule by [facility] of hr capsule 00:00: mouth in [place] as 00 the Medical morning. Branch budesonide 0 Yes [id number] .5mg Inhale 2 [facility] 0.5 mg/2 mL 1-05 mL in the ity of nebulizer 00:00: morning [place] solution 00 and 2 mL Medical in the Branch evening. traZODone 2022-0 Yes [id number] 50mg Take 1 [facility] nivers 50 mg 1-05 tablet by [facility] of tablet 00:00: mouth at [place] 00 bedtime. Medical Branch glipiZIDE 0 Yes [id number] 2.5mg Take 1 [facility] nivers XL 2.5 mg 1-05 tablet by ity o f 24 hr 00:00: mouth in [place] tablet 00 the Medical morning Branch and 1 tablet in the evening. arformotero Yes [id number] 15ug Use 2 mL [facility] L 15 mcg/2 1-05 as it[facility] of mL 00:00: directed [place] nebulizer 00 in the Medical solution morning Branch and 2 mL in the evening. ipratropium 0 Yes [id number] .5mg Inhale 2.5 [facility] 0.02 % 1-05 mL every 4 [facility]y of nebulizer 00:00: (four) [place] solution 00 hours as Medical needed for Branch Wheezing or Shortness of Breath. cloNIDine 0 Yes [id number] .2mg Take 1 [facility] nivers 0.2 mg 1-05 tablet by [facility] of tablet 00:00: mouth 3 [place] 00 (three) Medical times Branch daily as needed (Uncontrol led Hypertensi on). Take 1 Tab if BP > 150/90 NIFEdipine 0 Yes 30mg Take 1 [facility] rs ER 30 mg 1-05 tablet by [facility] of tablet 00:00: mouth [place] 00 every Medical morning. Branch levothyroxi 0 Yes [id number] 150ug Take 1 [facility] ne 150 mcg 1-05 tablet by [facility] of tablet 00:00: mouth [place] 00 every Medical morning. Branch tamsulosin Yes [id number] .4mg Take 1 [facility] 0.4 mg 24 1-05 9102 capsule by [facility] of hr capsule 00:00: mouth in [place] as 00 the Medical morning. Branch budesonide 0 Yes [id number] .5mg Inhale 2 [facility] 0.5 mg/2 mL 1-05 mL in the ity of nebulizer 00:00: morning [place] solution 00 and 2 mL Medical in the Branch evening. traZODone 2022-0 Yes [id number] 50mg Take 1 [facility] nivers 50 mg 1-05 tablet by [facility] of tablet 00:00: mouth at [place] 00 bedtime. Medical Branch glipiZIDE 2022-0 Yes [id number] 2.5mg Take 1 [facility] nivers XL 2.5 mg 1-05 tablet by ity o f 24 hr 00:00: mouth in [place] tablet 00 the Medical morning Branch and 1 tablet in the evening. arformotero Yes [id number] 15ug Use 2 mL [facility] L 15 mcg/2 1-05 as ity of mL 00:00: directed [place] nebulizer 00 in the Medical solution morning Branch and 2 mL in the evening. ipratropium 0 Yes [id number] .5mg Inhale 2.5 [facility] 0.02 % 1-05 mL every 4 ity of nebulizer 00:00: (four) [place] solution 00 hours as Medical needed for Branch Wheezing or Shortness of Breath. cloNIDine 0 Yes [id number] .2mg Take 1 [facility] nivers 0.2 mg 1-05 tablet by [facility] of tablet 00:00: mouth 3 [place] 00 (three) Medical times Branch daily as needed (Uncontrol led Hypertensi on). Take 1 Tab if BP > 150/90 NIFEdipine 0 Yes 30mg Take 1 [facility] rs ER 30 mg 1-05 tablet by [facility] of tablet 00:00: mouth [place] 00 every Medical morning. Branch levothyroxi 0 Yes [id number] 150ug Take 1 [facility] ne 150 mcg 1-05 tablet by [facility] of tablet 00:00: mouth [place] 00 every Medical morning. Branch tamsulosin 0 Yes [id number] .4mg Take 1 [facility] 0.4 mg 24 1-05 9102 capsule by [facility] of hr capsule 00:00: mouth in [place] as 00 the Medical morning. Branch budesonide 0 Yes [id number] .5mg Inhale 2 [facility] 0.5 mg/2 mL 1-05 mL in the ity of nebulizer 00:00: morning [place] solution 00 and 2 mL Medical in the Branch evening. traZODone 2022-0 Yes [id number] 50mg Take 1 [facility] nivers 50 mg 1-05 tablet by [facility] of tablet 00:00: mouth at [place] 00 bedtime. Medical Branch glipiZIDE 2022-0 Yes [id number] 2.5mg Take 1 [facility] nivers XL 2.5 mg 1-05 tablet by ity o f 24 hr 00:00: mouth in [place] tablet 00 the Medical morning Branch and 1 tablet in the evening. arformotero 0 Yes [id number] 15ug Use 2 mL [facility] L 15 mcg/2 1-05 as ity of mL 00:00: directed [place] nebulizer 00 in the Medical solution morning Branch and 2 mL in the evening. ipratropium 0 Yes [id number] .5mg Inhale 2.5 [facility] 0.02 % 1-05 mL every 4 ity of nebulizer 00:00: (four) [place] solution 00 hours as Medical needed for Branch Wheezing or Shortness of Breath. cloNIDine 0 Yes [id number] .2mg Take 1 [facility] nivers 0.2 mg 1-05 tablet by [facility] of tablet 00:00: mouth 3 [place] 00 (three) Medical times Branch daily as needed (Uncontrol led Hypertensi on). Take 1 Tab if BP > 150/90 NIFEdipine 2022-0 Yes 30mg Take 1 [facility] rs ER 30 mg 1-05 tablet by [facility] of tablet 00:00: mouth [place] 00 every Medical morning. Branch levothyroxi 0 Yes [id number] 150ug Take 1 [facility] ne 150 mcg 1-05 tablet by [facility] of tablet 00:00: mouth [place] 00 every Medical morning. Branch tamsulosin 0 Yes [id number] .4mg Take 1 [facility] 0.4 mg 24 1-05 9102 capsule by [facility] of hr capsule 00:00: mouth in [place] as 00 the Medical morning. Branch budesonide 0 Yes [id number] .5mg Inhale 2 [facility] 0.5 mg/2 mL 1-05 mL in the ity of nebulizer 00:00: morning [place] solution 00 and 2 mL Medical in the Branch evening. traZODone 2022-0 Yes [id number] 50mg Take 1 [facility] nivers 50 mg 1-05 tablet by [facility] of tablet 00:00: mouth at [place] 00 bedtime. Medical Branch glipiZIDE 0 Yes [id number] 2.5mg Take 1 [facility] nivers XL 2.5 mg 1-05 tablet by ity o f 24 hr 00:00: mouth in [place] tablet 00 the Medical morning Branch and 1 tablet in the evening. arformotero 2022-0 Yes [id number] 15ug Use 2 mL [facility] L 15 mcg/2 1-05 as ity of mL 00:00: directed [place] nebulizer 00 in the Medical solution morning Branch and 2 mL in the evening. ipratropium 2022-0 Yes [id number] .5mg Inhale 2.5 [facility] 0.02 % 1-05 mL every 4 ity of nebulizer 00:00: (four) [place] solution 00 hours as Medical needed for Branch Wheezing or Shortness of Breath. cloNIDine 0 Yes [id number] .2mg Take 1 [facility] nivers 0.2 mg 1-05 tablet by [facility] of tablet 00:00: mouth 3 [place] 00 (three) Medical times Branch daily as needed (Uncontrol led Hypertensi on). Take 1 Tab if BP > 150/90 NIFEdipine 0 Yes 30mg Take 1 [facility] rs ER 30 mg 1-05 tablet by [facility] of tablet 00:00: mouth [place] 00 every Medical morning. Branch levothyroxi 0 Yes [id number] 150ug Take 1 [facility] ne 150 mcg 1-05 tablet by [facility] of tablet 00:00: mouth [place] 00 every Medical morning. Branch tamsulosin 0 Yes [id number] .4mg Take 1 [facility] 0.4 mg 24 1-05 9102 capsule by [facility] of hr capsule 00:00: mouth in [place] as 00 the Medical morning. Branch budesonide 2022-0 Yes [id number] .5mg Inhale 2 [facility] 0.5 mg/2 mL 1-05 mL in the ity of nebulizer 00:00: morning [place] solution 00 and 2 mL Medical in the Branch evening. traZODone 2022-0 Yes [id number] 50mg Take 1 [facility] nivers 50 mg 1-05 tablet by [facility] of tablet 00:00: mouth at [place] 00 bedtime. Medical Branch glipiZIDE 2022-0 Yes [id number] 2.5mg Take 1 [facility] nivers XL 2.5 mg 1-05 tablet by ity o f 24 hr 00:00: mouth in [place] tablet 00 the Medical morning Branch and 1 tablet in the evening. arformotero 0 Yes [id number] 15ug Use 2 mL [facility] L 15 mcg/2 1-05 as ity of mL 00:00: directed [place] nebulizer 00 in the Medical solution morning Branch and 2 mL in the evening. ipratropium 0 Yes [id number] .5mg Inhale 2.5 [facility] 0.02 % 1-05 mL every 4 ity of nebulizer 00:00: (four) [place] solution 00 hours as Medical needed for Branch Wheezing or Shortness of Breath. cloNIDine 0 Yes [id number] .2mg Take 1 [facility] nivers 0.2 mg 1-05 tablet by it[facility] of tablet 00:00: mouth 3 [place] 00 (three) Medical times Branch daily as needed (Uncontrol led Hypertensi on). Take 1 Tab if BP > 150/90 NIFEdipine 0 Yes 30mg Take 1 [facility] rs ER 30 mg 1-05 tablet by [facility] of tablet 00:00: mouth [place] 00 every Medical morning. Branch levothyroxi 0 Yes [id number] 150ug Take 1 [facility] ne 150 mcg 1-05 tablet by [facility] of tablet 00:00: mouth [place] 00 every Medical morning. Branch tamsulosin 0 Yes [id number] .4mg Take 1 [facility] 0.4 mg 24 1-05 9102 capsule by ity of hr capsule 00:00: mouth in [place] as 00 the Medical morning. Branch budesonide Yes [id number] .5mg Inhale 2 [facility] 0.5 mg/2 mL 1-05 mL in the ity of nebulizer 00:00: morning [place] solution 00 and 2 mL Medical in the Branch evening. traZODone 2022-0 Yes [id number] 50mg Take 1 [facility] nivers 50 mg 1-05 tablet by ity of tablet 00:00: mouth at [place] 00 bedtime. Medical Branch glipiZIDE 2022-0 Yes [id number] 2.5mg Take 1 [facility] nivers XL 2.5 mg 1-05 tablet by ity o f 24 hr 00:00: mouth in [place] tablet 00 the Medical morning Branch and 1 tablet in the evening. arformotero 2022-0 Yes [id number] 15ug Use 2 mL [facility] L 15 mcg/2 1-05 as ity of mL 00:00: directed [place] nebulizer 00 in the Medical solution morning Branch and 2 mL in the evening. ipratropium 2022-0 Yes [id number] .5mg Inhale 2.5 [facility] 0.02 % 1-05 mL every 4 ity of nebulizer 00:00: (four) [place] solution 00 hours as Medical needed for Branch Wheezing or Shortness of Breath. cloNIDine 2022-0 Yes [id number] .2mg Take 1 [facility] nivers 0.2 mg 1-05 tablet by ity of tablet 00:00: mouth 3 [place] 00 (three) Medical times Branch daily as needed (Uncontrol led Hypertensi on). Take 1 Tab if BP > 150/90 NIFEdipine 2022-0 Yes 30mg Take 1 [facility] rs ER 30 mg 1-05 tablet by [facility] of tablet 00:00: mouth [place] 00 every Medical morning. Branch levothyroxi 0 Yes [id number] 150ug Take 1 [facility] ne 150 mcg 1-05 tablet by ity of tablet 00:00: mouth [place] 00 every Medical morning. Branch tamsulosin 0 Yes [id number] .4mg Take 1 [facility] 0.4 mg 24 1-05 9102 capsule by ity of hr capsule 00:00: mouth in [place] as 00 the Medical morning. Branch budesonide 2022-0 Yes [id number] .5mg Inhale 2 [facility] 0.5 mg/2 mL 1-05 mL in the ity of nebulizer 00:00: morning [place] solution 00 and 2 mL Medical in the Branch evening. traZODone 2022-0 Yes [id number] 50mg Take 1 [facility] nivers 50 mg 1-05 tablet by ity of tablet 00:00: mouth at [place] 00 bedtime. Medical Branch glipiZIDE 2022-0 Yes [id number] 2.5mg Take 1 [facility] nivers XL 2.5 mg 1-05 tablet by ity o f 24 hr 00:00: mouth in [place] tablet 00 the Medical morning Branch and 1 tablet in the evening. arformotero 2022-0 Yes [id number] 15ug Use 2 mL [facility] L 15 mcg/2 1-05 as ity of mL 00:00: directed [place] nebulizer 00 in the Medical solution morning Branch and 2 mL in the evening. ipratropium 0 Yes [id number] .5mg Inhale 2.5 [facility] 0.02 % 1-05 mL every 4 ity of nebulizer 00:00: (four) [place] solution 00 hours as Medical needed for Branch Wheezing or Shortness of Breath. cloNIDine 0 Yes [id number] .2mg Take 1 [facility] nivers 0.2 mg 1-05 tablet by ity of tablet 00:00: mouth 3 [place] 00 (three) Medical times Branch daily as needed (Uncontrol led Hypertensi on). Take 1 Tab if BP > 150/90 NIFEdipine 0 Yes 30mg Take 1 [facility] rs ER 30 mg 1-05 tablet by [facility] of tablet 00:00: mouth [place] 00 every Medical morning. Branch levothyroxi 0 Yes [id number] 150ug Take 1 [facility] ne 150 mcg 1-05 tablet by ity of tablet 00:00: mouth [place] 00 every Medical morning. Branch tamsulosin 0 Yes [id number] .4mg Take 1 [facility] 0.4 mg 24 1-05 9102 capsule by ity of hr capsule 00:00: mouth in [place] as 00 the Medical morning. Branch budesonide 0 Yes [id number] .5mg Inhale 2 [facility] 0.5 mg/2 mL 1-05 mL in the ity of nebulizer 00:00: morning [place] solution 00 and 2 mL Medical in the Branch evening. traZODone 0 Yes [id number] 50mg Take 1 [facility] nivers 50 mg 1-05 tablet by ity of tablet 00:00: mouth at [place] 00 bedtime. Medical Branch glipiZIDE 0 Yes [id number] 2.5mg Take 1 [facility] nivers XL 2.5 mg 1-05 tablet by ity o f 24 hr 00:00: mouth in [place] tablet 00 the Medical morning Branch and 1 tablet in the evening. arformotero 2022-0 Yes [id number] 15ug Use 2 mL [facility] L 15 mcg/2 1-05 as ity of mL 00:00: directed [place] nebulizer 00 in the Medical solution morning Branch and 2 mL in the evening. ipratropium 2022-0 Yes [id number] .5mg Inhale 2.5 [facility] 0.02 % 1-05 mL every 4 ity of nebulizer 00:00: (four) [place] solution 00 hours as Medical needed for Branch Wheezing or Shortness of Breath. cloNIDine 0 Yes [id number] .2mg Take 1 [facility] nivers 0.2 mg 1-05 tablet by ity of tablet 00:00: mouth 3 [place] 00 (three) Medical times Branch daily as needed (Uncontrol led Hypertensi on). Take 1 Tab if BP > 150/90 NIFEdipine 2022-0 Yes 30mg Take 1 [facility] rs ER 30 mg 1-05 tablet by ity of tablet 00:00: mouth [place] 00 every Medical morning. Branch levothyroxi 0 Yes [id number] 150ug Take 1 [facility] ne 150 mcg 1-05 tablet by ity of tablet 00:00: mouth [place] 00 every Medical morning. Branch tamsulosin 0 Yes [id number] .4mg Take 1 [facility] 0.4 mg 24 1-05 9102 capsule by ity of hr capsule 00:00: mouth in [place] as 00 the Medical morning. Branch budesonide 2022-0 Yes [id number] .5mg Inhale 2 [facility] 0.5 mg/2 mL 1-05 mL in the ity of nebulizer 00:00: morning [place] solution 00 and 2 mL Medical in the Branch evening. traZODone 2022-0 Yes [id number] 50mg Take 1 [facility] nivers 50 mg 1-05 tablet by ity of tablet 00:00: mouth at [place] 00 bedtime. Medical Branch glipiZIDE 2022-0 Yes [id number] 2.5mg Take 1 [facility] nivers XL 2.5 mg 1-05 tablet by ity o f 24 hr 00:00: mouth in [place] tablet 00 the Medical morning Branch and 1 tablet in the evening. arformotero 2022-0 Yes [id number] 15ug Use 2 mL [facility] L 15 mcg/2 1-05 as ity of mL 00:00: directed [place] nebulizer 00 in the Medical solution morning Branch and 2 mL in the evening. ipratropium 2022-0 Yes [id number] .5mg Inhale 2.5 [facility] 0.02 % 1-05 mL every 4 ity of nebulizer 00:00: (four) [place] solution 00 hours as Medical needed for Branch Wheezing or Shortness of Breath. cloNIDine 2022-0 Yes [id number] .2mg Take 1 [facility] nivers 0.2 mg 1-05 tablet by ity of tablet 00:00: mouth 3 [place] 00 (three) Medical times Branch daily as needed (Uncontrol led Hypertensi on). Take 1 Tab if BP > 150/90 NIFEdipine 2022-0 Yes 30mg Take 1 [facility] rs ER 30 mg 1-05 tablet by ity of tablet 00:00: mouth [place] 00 every Medical morning. Branch levothyroxi 2022-0 Yes [id number] 150ug Take 1 [facility] ne 150 mcg 1-05 tablet by ity of tablet 00:00: mouth [place] 00 every Medical morning. Branch tamsulosin 2022-0 Yes [id number] .4mg Take 1 [facility] 0.4 mg 24 1-05 9102 capsule by ity of hr capsule 00:00: mouth in [place] as 00 the Medical morning. Branch budesonide 2022-0 Yes [id number] .5mg Inhale 2 [facility] 0.5 mg/2 mL 1-05 mL in the ity of nebulizer 00:00: morning [place] solution 00 and 2 mL Medical in the Branch evening. traZODone 2022-0 Yes [id number] 50mg Take 1 [facility] nivers 50 mg 1-05 tablet by ity of tablet 00:00: mouth at [place] 00 bedtime. Medical Branch glipiZIDE 2022-0 Yes [id number] 2.5mg Take 1 [facility] nivers XL 2.5 mg 1-05 tablet by ity o f 24 hr 00:00: mouth in [place] tablet 00 the Medical morning Branch and 1 tablet in the evening. arformotero 2022-0 Yes [id number] 15ug Use 2 mL [facility] L 15 mcg/2 1-05 as ity of mL 00:00: directed [place] nebulizer 00 in the Medical solution morning Branch and 2 mL in the evening. ipratropium 2022-0 Yes [id number] .5mg Inhale 2.5 [facility] 0.02 % 1-05 mL every 4 ity of nebulizer 00:00: (four) [place] solution 00 hours as Medical needed for Branch Wheezing or Shortness of Breath. cloNIDine 2022-0 Yes [id number] .2mg Take 1 [facility] nivers 0.2 mg 1-05 tablet by ity of tablet 00:00: mouth 3 [place] 00 (three) Medical times Branch daily as needed (Uncontrol led Hypertensi on). Take 1 Tab if BP > 150/90 NIFEdipine 2022-0 Yes 30mg Take 1 [facility] rs ER 30 mg 1-05 tablet by [facility]y of tablet 00:00: mouth [place] 00 every Medical morning. Branch levothyroxi 2022-0 Yes [id number] 150ug Take 1 [facility] ne 150 mcg 1-05 tablet by ity of tablet 00:00: mouth [place] 00 every Medical morning. Branch tamsulosin 2022-0 Yes [id number] .4mg Take 1 [facility] 0.4 mg 24 1-05 9102 capsule by ity of hr capsule 00:00: mouth in [place] as 00 the Medical morning. Branch budesonide 2022-0 Yes [id number] .5mg Inhale 2 [facility] 0.5 mg/2 mL 1-05 mL in the ity of nebulizer 00:00: morning [place] solution 00 and 2 mL Medical in the Branch evening. traZODone 2022-0 Yes [id number] 50mg Take 1 [facility] nivers 50 mg 1-05 tablet by ity of tablet 00:00: mouth at [place] 00 bedtime. Medical Branch glipiZIDE 2022-0 Yes [id number] 2.5mg Take 1 U nivers XL 2.5 mg 1-05 tablet by ity o f 24 hr 00:00: mouth in [place] tablet 00 the Medical morning Branch and 1 tablet in the evening. arformotero 2022-0 Yes [id number] 15ug Use 2 mL [facility] L 15 mcg/2 1-05 as ity of mL 00:00: directed [place] nebulizer 00 in the Medical solution morning Branch and 2 mL in the evening. ipratropium 2022-0 Yes [id number] .5mg Inhale 2.5 [facility] 0.02 % 1-05 mL every 4 ity of nebulizer 00:00: (four) [place] solution 00 hours as Medical needed for Branch Wheezing or Shortness of Breath. cloNIDine 2022-0 Yes [id number] .2mg Take 1 [facility] nivers 0.2 mg 1-05 tablet by ity of tablet 00:00: mouth 3 [place] 00 (three) Medical times Branch daily as needed (Uncontrol led Hypertensi on). Take 1 Tab if BP > 150/90 NIFEdipine 2022-0 Yes 30mg Take 1 [facility] rs ER 30 mg 1-05 tablet by [facility] of tablet 00:00: mouth [place] 00 every Medical morning. Branch levothyroxi 2022-0 Yes [id number] 150ug Take 1 [facility] ne 150 mcg 1-05 tablet by [facility]y of tablet 00:00: mouth [place] 00 every Medical morning. Branch tamsulosin 2022-0 Yes [id number] .4mg Take 1 [facility] 0.4 mg 24 1-05 9102 capsule by ity of hr capsule 00:00: mouth in [place] as 00 the Medical morning. Branch budesonide 0 Yes [id number] .5mg Inhale 2 [facility] 0.5 mg/2 mL 1-05 mL in the ity of nebulizer 00:00: morning [place] solution 00 and 2 mL Medical in the Branch evening. traZODone 2022-0 Yes [id number] 50mg Take 1 [facility] nivers 50 mg 1-05 tablet by [facility] of tablet 00:00: mouth at [place] 00 bedtime. Medical Branch glipiZIDE 0 Yes [id number] 2.5mg Take 1 [facility] nivers XL 2.5 mg 1-05 tablet by ity o f 24 hr 00:00: mouth in [place] tablet 00 the Medical morning Branch and 1 tablet in the evening. arformotero 2022-0 Yes [id number] 15ug Use 2 mL [facility] L 15 mcg/2 1-05 as ity of mL 00:00: directed [place] nebulizer 00 in the Medical solution morning Branch and 2 mL in the evening. ipratropium 2022-0 Yes [id number] .5mg Inhale 2.5 [facility] 0.02 % 1-05 mL every 4 ity of nebulizer 00:00: (four) [place] solution 00 hours as Medical needed for Branch Wheezing or Shortness of Breath. cloNIDine 2022-0 Yes [id number] .2mg Take 1 [facility] nivers 0.2 mg 1-05 tablet by ity of tablet 00:00: mouth 3 [place] 00 (three) Medical times Branch daily as needed (Uncontrol led Hypertensi on). Take 1 Tab if BP > 150/90 NIFEdipine 2022-0 Yes 30mg Take 1 [facility] rs ER 30 mg 1-05 tablet by [facility] of tablet 00:00: mouth [place] 00 every Medical morning. Branch levothyroxi 2022-0 Yes [id number] 150ug Take 1 [facility] ne 150 mcg 1-05 tablet by [facility]y of tablet 00:00: mouth [place] 00 every Medical morning. Branch tamsulosin 0 Yes [id number] .4mg Take 1 [facility] 0.4 mg 24 1-05 9102 capsule by ity of hr capsule 00:00: mouth in [place] as 00 the Medical morning. Branch budesonide 2022-0 Yes [id number] .5mg Inhale 2 [facility] 0.5 mg/2 mL 1-05 mL in the ity of nebulizer 00:00: morning [place] solution 00 and 2 mL Medical in the Branch evening. traZODone 2022-0 Yes [id number] 50mg Take 1 [facility] nivers 50 mg 1-05 tablet by ity of tablet 00:00: mouth at [place] 00 bedtime. Medical Branch glipiZIDE 2022-0 Yes [id number] 2.5mg Take 1 U nivers XL 2.5 mg 1-05 tablet by ity o f 24 hr 00:00: mouth in [place] tablet 00 the Medical morning Branch and 1 tablet in the evening. arformotero 0 Yes [id number] 15ug Use 2 mL [facility] L 15 mcg/2 1-05 as ity of mL 00:00: directed [place] nebulizer 00 in the Medical solution morning Branch and 2 mL in the evening. ipratropium 2022-0 Yes [id number] .5mg Inhale 2.5 [facility] 0.02 % 1-05 mL every 4 ity of nebulizer 00:00: (four) [place] solution 00 hours as Medical needed for Branch Wheezing or Shortness of Breath. cloNIDine 2022-0 Yes [id number] .2mg Take 1 [facility] nivers 0.2 mg 1-05 tablet by ity of tablet 00:00: mouth 3 [place] 00 (three) Medical times Branch daily as needed (Uncontrol led Hypertensi on). Take 1 Tab if BP > 150/90 NIFEdipine 2022-0 Yes 30mg Take 1 [facility] rs ER 30 mg 1-05 tablet by [facility] of tablet 00:00: mouth [place] 00 every Medical morning. Branch levothyroxi 2022-0 Yes [id number] 150ug Take 1 [facility] ne 150 mcg 1-05 tablet by [facility]y of tablet 00:00: mouth [place] 00 every Medical morning. Branch tamsulosin Yes [id number] .4mg Take 1 [facility] 0.4 mg 24 1-05 9102 capsule by ity of hr capsule 00:00: mouth in [place] as 00 the Medical morning. Branch budesonide Yes [id number] .5mg Inhale 2 [facility] 0.5 mg/2 mL 1-05 mL in the ity of nebulizer 00:00: morning [place] solution 00 and 2 mL Medical in the Branch evening. traZODone Yes [id number] 50mg Take 1 [facility] nivers 50 mg 1-05 tablet by [facility]y of tablet 00:00: mouth at [place] 00 bedtime. Medical Branch glipiZIDE Yes [id number] 2.5mg Take 1 [facility] nivers XL 2.5 mg 1-05 tablet by ity o f 24 hr 00:00: mouth in [place] tablet 00 the Medical morning Branch and 1 tablet in the evening. arformotero Yes [id number] 15ug Use 2 mL [facility] L 15 mcg/2 1-05 as ity of mL 00:00: directed [place] nebulizer 00 in the Medical solution morning Branch and 2 mL in the evening. ipratropium Yes [id number] .5mg Inhale 2.5 [facility] 0.02 % 1-05 mL every 4 ity of nebulizer 00:00: (four) [place] solution 00 hours as Medical needed for Branch Wheezing or Shortness of Breath. cloNIDine Yes [id number] .2mg Take 1 [facility] nivers 0.2 mg 1-05 tablet by ity of tablet 00:00: mouth 3 [place] 00 (three) Medical times Branch daily as needed (Uncontrol led Hypertensi on). Take 1 Tab if BP > 150/90 NIFEdipine Yes 30mg Take 1 [facility] rs ER 30 mg 1-05 tablet by [facility] of tablet 00:00: mouth [place] 00 every Medical morning. Branch levothyroxi Yes [id number] 150ug Take 1 [facility] ne 150 mcg 1-05 tablet by ity of tablet 00:00: mouth [place] 00 every Medical morning. Branch tamsulosin Yes [id number] .4mg Take 1 [facility] 0.4 mg 24 1-05 9102 capsule by ity of hr capsule 00:00: mouth in [place] as 00 the Medical morning. Branch budesonide 2022-0 Yes [id number] .5mg Inhale 2 [facility] 0.5 mg/2 mL 1-05 mL in the ity of nebulizer 00:00: morning [place] solution 00 and 2 mL Medical in the Branch evening. traZODone 2022-0 Yes [id number] 50mg Take 1 [facility] nivers 50 mg 1-05 tablet by [facility]y of tablet 00:00: mouth at [place] 00 bedtime. Medical Branch glipiZIDE 2022-0 Yes [id number] 2.5mg Take 1 U nivers XL 2.5 mg 1-05 tablet by ity o f 24 hr 00:00: mouth in [place] tablet 00 the Medical morning Branch and 1 tablet in the evening. arformotero 2022-0 Yes [id number] 15ug Use 2 mL [facility] L 15 mcg/2 1-05 as ity of mL 00:00: directed [place] nebulizer 00 in the Medical solution morning Branch and 2 mL in the evening. ipratropium 2022-0 Yes [id number] .5mg Inhale 2.5 [facility] 0.02 % 1-05 mL every 4 ity of nebulizer 00:00: (four) [place] solution 00 hours as Medical needed for Branch Wheezing or Shortness of Breath. cloNIDine 2022-0 Yes [id number] .2mg Take 1 [facility] nivers 0.2 mg 1-05 tablet by ity of tablet 00:00: mouth 3 [place] 00 (three) Medical times Branch daily as needed (Uncontrol led Hypertensi on). Take 1 Tab if BP > 150/90 NIFEdipine 2022-0 Yes 30mg Take 1 [facility] rs ER 30 mg 1-05 tablet by ity of tablet 00:00: mouth [place] 00 every Medical morning. Branch levothyroxi 2022-0 Yes [id number] 150ug Take 1 [facility] ne 150 mcg 1-05 tablet by ity of tablet 00:00: mouth [place] 00 every Medical morning. Branch tamsulosin 2022-0 Yes [id number] .4mg Take 1 [facility] 0.4 mg 24 1-05 9102 capsule by ity of hr capsule 00:00: mouth in [place] as 00 the Medical morning. Branch budesonide 0 Yes [id number] .5mg Inhale 2 [facility] 0.5 mg/2 mL 1-05 mL in the ity of nebulizer 00:00: morning [place] solution 00 and 2 mL Medical in the Branch evening. traZODone 2022-0 Yes [id number] 50mg Take 1 U nivers 50 mg 1-05 tablet by ity of tablet 00:00: mouth at [place] 00 bedtime. Medical Branch glipiZIDE 2022-0 Yes [id number] 2.5mg Take 1 U nivers XL 2.5 mg 1-05 tablet by ity o f 24 hr 00:00: mouth in [place] tablet 00 the Medical morning Branch and 1 tablet in the evening. arformotero 0 Yes [id number] 15ug Use 2 mL [facility] L 15 mcg/2 1-05 as ity of mL 00:00: directed [place] nebulizer 00 in the Medical solution morning Branch and 2 mL in the evening. ipratropium 0 Yes [id number] .5mg Inhale 2.5 [facility] 0.02 % 1-05 mL every 4 ity of nebulizer 00:00: (four) [place] solution 00 hours as Medical needed for Branch Wheezing or Shortness of Breath. cloNIDine 0 Yes [id number] .2mg Take 1 U nivers 0.2 mg 1-05 tablet by ity of tablet 00:00: mouth 3 [place] 00 (three) Medical times Branch daily as needed (Uncontrol led Hypertensi on). Take 1 Tab if BP > 150/90 NIFEdipine 2022-0 Yes 30mg Take 1 [facility] rs ER 30 mg 1-05 tablet by ity of tablet 00:00: mouth [place] 00 every Medical morning. Branch levothyroxi 2022-0 Yes [id number] 150ug Take 1 [facility] ne 150 mcg 1-05 tablet by ity of tablet 00:00: mouth [place] 00 every Medical morning. Branch tamsulosin 0 Yes [id number] .4mg Take 1 [facility] 0.4 mg 24 1-05 9102 capsule by ity of hr capsule 00:00: mouth in [place] as 00 the Medical morning. Branch budesonide 0 Yes [id number] .5mg Inhale 2 [facility] 0.5 mg/2 mL 1-05 mL in the ity of nebulizer 00:00: morning [place] solution 00 and 2 mL Medical in the Branch evening. traZODone 0 Yes [id number] 50mg Take 1 [facility] nivers 50 mg 1-05 tablet by ity of tablet 00:00: mouth at [place] 00 bedtime. Medical Branch glipiZIDE 0 Yes [id number] 2.5mg Take 1 [facility] nivers XL 2.5 mg 1-05 tablet by ity o f 24 hr 00:00: mouth in [place] tablet 00 the Medical morning Branch and 1 tablet in the evening. arformotero Yes [id number] 15ug Use 2 mL [facility] L 15 mcg/2 1-05 as ity of mL 00:00: directed [place] nebulizer 00 in the Medical solution morning Branch and 2 mL in the evening. ipratropium Yes [id number] .5mg Inhale 2.5 [facility] 0.02 % 1-05 mL every 4 ity of nebulizer 00:00: (four) [place] solution 00 hours as Medical needed for Branch Wheezing or Shortness of Breath. cloNIDine Yes [id number] .2mg Take 1 [facility] nivers 0.2 mg 1-05 tablet by ity of tablet 00:00: mouth 3 [place] 00 (three) Medical times Branch daily as needed (Uncontrol led Hypertensi on). Take 1 Tab if BP > 150/90 levothyroxi 0 Yes [id number] 150ug Take 1 [facility] ne 150 mcg 1-05 tablet by ity of tablet 00:00: mouth [place] 00 every Medical morning. Branch tamsulosin 0 Yes [id number] .4mg Take 1 [facility] 0.4 mg 24 1-05 9102 capsule by ity of hr capsule 00:00: mouth in [place] as 00 the Medical morning. Branch budesonide Yes [id number] .5mg Inhale 2 [facility] 0.5 mg/2 mL 1-05 mL in the ity of nebulizer 00:00: morning [place] solution 00 and 2 mL Medical in the Branch evening. traZODone 0 Yes [id number] 50mg Take 1 [facility] nivers 50 mg 1-05 tablet by ity of tablet 00:00: mouth at [place] [address] bedtime. Medical Branch glipiZIDE 0 Yes [id number] 2.5mg Take 1 [facility] nivers XL 2.5 mg 1-05 tablet by ity o f 24 hr 00:00: mouth in [place] tablet 00 the Medical morning Branch and 1 tablet in the evening. arformotero 0 Yes [id number] 15ug Use 2 mL [facility] L 15 mcg/2 1-05 as ity of mL 00:00: directed [place] nebulizer 00 in the Medical solution morning Branch and 2 mL in the evening. ipratropium 2022-0 Yes [id number] .5mg Inhale 2.5 [facility] 0.02 % 1-05 mL every 4 ity of nebulizer 00:00: (four) [place] solution 00 hours as Medical needed for Branch Wheezing or Shortness of Breath. cloNIDine 0 Yes [id number] .2mg Take 1 [facility] nivers 0.2 mg 1-05 tablet by ity of tablet 00:00: mouth 3 [place] 00 (three) Medical times Branch daily as needed (Uncontrol led Hypertensi on). Take 1 Tab if BP > 150/90 NIFEdipine 0 Yes 30mg Take 1 [facility] rs ER 30 mg 1-05 tablet by ity of tablet 00:00: mouth [place] 00 every Medical morning. Branch levothyroxi 0 Yes [id number] 150ug Take 1 [facility] ne 150 mcg 1-05 tablet by ity of tablet 00:00: mouth [place] 00 every Medical morning. Branch tamsulosin 0 Yes [id number] .4mg Take 1 [facility] 0.4 mg 24 1-05 9102 capsule by ity of hr capsule 00:00: mouth in [place] as 00 the Medical morning. Branch budesonide 0 Yes [id number] .5mg Inhale 2 [facility] 0.5 mg/2 mL 1-05 mL in the ity of nebulizer 00:00: morning [place] solution 00 and 2 mL Medical in the Branch evening. traZODone 2022-0 Yes [id number] 50mg Take 1 [facility] nivers 50 mg 1-05 tablet by ity of tablet 00:00: mouth at [place] 00 bedtime. Medical Branch glipiZIDE 2022-0 Yes [id number] 2.5mg Take 1 [facility] nivers XL 2.5 mg 1-05 tablet by ity o f 24 hr 00:00: mouth in [place] tablet 00 the Medical morning Branch and 1 tablet in the evening. arformotero 2022-0 Yes [id number] 15ug Use 2 mL [facility] L 15 mcg/2 1-05 as ity of mL 00:00: directed [place] nebulizer 00 in the Medical solution morning Branch and 2 mL in the evening. ipratropium 2022-0 Yes [id number] .5mg Inhale 2.5 [facility] 0.02 % 1-05 mL every 4 ity of nebulizer 00:00: (four) [place] solution 00 hours as Medical needed for Branch Wheezing or Shortness of Breath. cloNIDine 0 Yes [id number] .2mg Take 1 [facility] nivers 0.2 mg 1-05 tablet by ity of tablet 00:00: mouth 3 [place] 00 (three) Medical times Branch daily as needed (Uncontrol led Hypertensi on). Take 1 Tab if BP > 150/90 NIFEdipine 0 Yes 30mg Take 1 [facility] rs ER 30 mg 1-05 tablet by ity of tablet 00:00: mouth [place] 00 every Medical morning. Branch levothyroxi 0 Yes [id number] 150ug Take 1 [facility] ne 150 mcg 1-05 tablet by ity of tablet 00:00: mouth [place] 00 every Medical morning. Branch tamsulosin 0 Yes [id number] .4mg Take 1 [facility] 0.4 mg 24 1-05 9102 capsule by ity of hr capsule 00:00: mouth in [place] as 00 the Medical morning. Branch budesonide 0 Yes [id number] .5mg Inhale 2 [facility] 0.5 mg/2 mL 1-05 mL in the ity of nebulizer 00:00: morning [place] solution 00 and 2 mL Medical in the Branch evening. traZODone 0 Yes [id number] 50mg Take 1 [facility] nivers 50 mg 1-05 tablet by ity of tablet 00:00: mouth at [place] 00 bedtime. Medical Branch glipiZIDE 2022-0 Yes [id number] 2.5mg Take 1 [facility] nivers XL 2.5 mg 1-05 tablet by ity o f 24 hr 00:00: mouth in [place] tablet 00 the Medical morning Branch and 1 tablet in the evening. arformotero 2022-0 Yes [id number] 15ug Use 2 mL [facility] L 15 mcg/2 1-05 as ity of mL 00:00: directed [place] nebulizer 00 in the Medical solution morning Branch and 2 mL in the evening. ipratropium 2022-0 Yes [id number] .5mg Inhale 2.5 [facility] 0.02 % 1-05 mL every 4 ity of nebulizer 00:00: (four) [place] solution 00 hours as Medical needed for Branch Wheezing or Shortness of Breath. cloNIDine 0 Yes [id number] .2mg Take 1 [facility] nivers 0.2 mg 1-05 tablet by ity of tablet 00:00: mouth 3 [place] 00 (three) Medical times Branch daily as needed (Uncontrol led Hypertensi on). Take 1 Tab if BP > 150/90 NIFEdipine 0 Yes 30mg Take 1 [facility] rs ER 30 mg 1-05 tablet by ity of tablet 00:00: mouth [place] 00 every Medical morning. Branch levothyroxi 0 Yes [id number] 150ug Take 1 [facility] ne 150 mcg 1-05 tablet by ity of tablet 00:00: mouth [place] 00 every Medical morning. Branch tamsulosin 0 Yes [id number] .4mg Take 1 [facility] 0.4 mg 24 1-05 9102 capsule by ity of hr capsule 00:00: mouth in [place] as 00 the Medical morning. Branch budesonide 0 Yes [id number] .5mg Inhale 2 [facility] 0.5 mg/2 mL 1-05 mL in the ity of nebulizer 00:00: morning [place] solution 00 and 2 mL Medical in the Branch evening. traZODone 2022-0 Yes [id number] 50mg Take 1 [facility] nivers 50 mg 1-05 tablet by ity of tablet 00:00: mouth at [place] 00 bedtime. Medical Branch glipiZIDE 2022-0 Yes [id number] 2.5mg Take 1 [facility] nivers XL 2.5 mg 1-05 tablet by ity o f 24 hr 00:00: mouth in [place] tablet 00 the Medical morning Branch and 1 tablet in the evening. arformotero 2022-0 Yes [id number] 15ug Use 2 mL [facility] L 15 mcg/2 1-05 as ity of mL 00:00: directed [place] nebulizer 00 in the Medical solution morning Branch and 2 mL in the evening. ipratropium 2022-0 Yes [id number] .5mg Inhale 2.5 [facility] 0.02 % 1-05 mL every 4 ity of nebulizer 00:00: (four) [place] solution 00 hours as Medical needed for Branch Wheezing or Shortness of Breath. cloNIDine 2022-0 Yes [id number] .2mg Take 1 [facility] nivers 0.2 mg 1-05 tablet by ity of tablet 00:00: mouth 3 [place] 00 (three) Medical times Branch daily as needed (Uncontrol led Hypertensi on). Take 1 Tab if BP > 150/90 NIFEdipine 2022-0 Yes 30mg Take 1 [facility] rs ER 30 mg 1-05 tablet by ity of tablet 00:00: mouth [place] 00 every Medical morning. Branch levothyroxi 2022-0 Yes [id number] 150ug Take 1 [facility] ne 150 mcg 1-05 tablet by ity of tablet 00:00: mouth [place] 00 every Medical morning. Branch tamsulosin 2022-0 Yes [id number] .4mg Take 1 [facility] 0.4 mg 24 1-05 9102 capsule by ity of hr capsule 00:00: mouth in [place] as 00 the Medical morning. Branch budesonide 2022-0 Yes [id number] .5mg Inhale 2 [facility] 0.5 mg/2 mL 1-05 mL in the ity of nebulizer 00:00: morning [place] solution 00 and 2 mL Medical in the Branch evening. traZODone 2022-0 Yes [id number] 50mg Take 1 [facility] nivers 50 mg 1-05 tablet by ity of tablet 00:00: mouth at [place] 00 bedtime. Medical Branch glipiZIDE 2022-0 Yes [id number] 2.5mg Take 1 [facility] nivers XL 2.5 mg 1-05 tablet by ity o f 24 hr 00:00: mouth in [place] tablet 00 the Medical morning Branch and 1 tablet in the evening. arformotero 2022-0 Yes [id number] 15ug Use 2 mL [facility] L 15 mcg/2 1-05 as ity of mL 00:00: directed [place] nebulizer 00 in the Medical solution morning Branch and 2 mL in the evening. ipratropium 2022-0 Yes [id number] .5mg Inhale 2.5 [facility] 0.02 % 1-05 mL every 4 ity of nebulizer 00:00: (four) [place] solution 00 hours as Medical needed for Branch Wheezing or Shortness of Breath. cloNIDine Yes [id number] .2mg Take 1 U nivers 0.2 mg 1-05 tablet by ity of tablet 00:00: mouth 3 [place] 00 (three) Medical times Branch daily as needed (Uncontrol led Hypertensi on). Take 1 Tab if BP > 150/90 NIFEdipine Yes 30mg Take 1 [facility] rs ER 30 mg 1-05 tablet by ity of tablet 00:00: mouth [place] 00 every Medical morning. Branch albuterol 2022- No [id number] 2{puff} Inhale 2 [facility] 90 1-05 09-08 Puffs ity of mcg/actuati 00:00: 00:00 every 6 [place] on inhaler 00 :00 (six) Medical hours as Branch needed for Wheezing or Shortness of Breath. albuterol 2022-2022- No [id number] 2{puff} Inhale 2 [facility] 90 1-05 09-08 Puffs ity of mcg/actuati 00:00: 00:00 every 6 [place] on inhaler 00 :00 (six) Medical hours as Branch needed for Wheezing or Shortness of Breath. doxepin 25 2022- No [id number] 25mg Take 1 [facility] mg capsule 03-08 capsule by it y of 00:00: 00:00 mouth at [place] 00 :00 bedtime. Medical Branch bumetanide 2022- No 1mg Take 1 [facility] ers 1 mg tablet 03-0818 tablet by it y of 00:00: 00:00 mouth [place] 00 :00 every Medical morning Branch and evening. Indication s: reports kidney Dr Rx, ~2 mths ago NIFEdipine 2022-2022- No [id number] 30mg Take 1 [facility] ER 30 mg 03-08-18 tablet by ity o f tablet 00:00: 00:00 mouth in [place] 00 :00 the Medical morning. Branch albuterol 2022- No [id number] 2.5mg Inhale 3 [facility] 2.5 mg /3 - 06-19 mL every 2 ity of mL (0.083 00:00: 00:00 (two) [facility]) 00 :00 hours as Medical nebulizer needed for Bran ch solution Shortness of Breath or Wheezing. ergocalcife 2021-03 Yes [id number] Take 1 [facility] rol, 2-14 capsule by ity of vitamin d2, 00:00: mouth [place] 1,250 mcg 00 weekly. Medical (50,000 Branch unit) capsule doxepin 25 2021-03 Yes [id number] 25mg Take 1 [facility] mg capsule 2-14 capsule by ity of 00:00: mouth at [place] 00 bedtime. Medical Branch hydrOXYzine 2021-03 Yes [id number] 25mg Take 1 [facility] 25 mg 2-14 capsule by ity of capsule 00:00: mouth 3 [place] 00 (three) Medical times Branch daily as needed for Itching. ergocalcife 2021-03 Yes [id number] Take 1 [facility] rol, 2-14 capsule by ity of vitamin d2, 00:00: mouth [place] 1,250 mcg 00 weekly. Medical (50,000 Branch unit) capsule doxepin 25 2021-03 Yes [id number] 25mg Take 1 [facility] mg capsule 2-14 capsule by ity of 00:00: mouth at [place] 00 bedtime. Medical Branch hydrOXYzine 2021-03 Yes [id number] 25mg Take 1 [facility] 25 mg 2-14 capsule by ity of capsule 00:00: mouth 3 [place] 00 (three) Medical times Branch daily as needed for Itching. ergocalcife 2021-03 Yes [id number] Take 1 [facility] rol, 2-14 capsule by ity of vitamin d2, 00:00: mouth [place] 1,250 mcg 00 weekly. Medical (50,000 Branch unit) capsule doxepin 25 2021-03 Yes [id number] 25mg Take 1 [facility] mg capsule 2-14 capsule by ity of 00:00: mouth at [place] 00 bedtime. Medical Branch hydrOXYzine 2021-03 Yes [id number] 25mg Take 1 [facility] 25 mg 2-14 capsule by ity of capsule 00:00: mouth 3 [place] 00 (three) Medical times Branch daily as needed for Itching. ergocalcife 2021-03 Yes [id number] Take 1 [facility] rol, 2-14 capsule by ity of vitamin d2, 00:00: mouth [place] 1,250 mcg 00 weekly. Medical (50,000 Branch unit) capsule doxepin 25 2021-03 Yes [id number] 25mg Take 1 [facility] mg capsule 2-14 capsule by ity of 00:00: mouth at [place] 00 bedtime. Medical Branch hydrOXYzine 2021-03 Yes [id number] 25mg Take 1 [facility] 25 mg 2-14 capsule by ity of capsule 00:00: mouth 3 [place] 00 (three) Medical times Branch daily as needed for Itching. ergocalcife 2021-03 Yes [id number] Take 1 [facility] rol, 2-14 capsule by ity of vitamin d2, 00:00: mouth [place] 1,250 mcg 00 weekly. Medical (50,000 Branch unit) capsule hydrOXYzine 2021-03 Yes [id number] 25mg Take 1 [facility] 25 mg 2-14 capsule by ity of capsule 00:00: mouth 3 [place] 00 (three) Medical times Branch daily as needed for Itching. ergocalcife 2021-03 Yes [id number] Take 1 [facility] rol, 2-14 capsule by ity of vitamin d2, 00:00: mouth [place] 1,250 mcg 00 weekly. Medical (50,000 Branch unit) capsule hydrOXYzine 2021-03 Yes [id number] 25mg Take 1 [facility] 25 mg 2-14 capsule by ity of capsule 00:00: mouth 3 [place] 00 (three) Medical times Branch daily as needed for Itching. ergocalcife 2021-03 Yes [id number] Take 1 [facility] rol, 2-14 capsule by ity of vitamin d2, 00:00: mouth [place] 1,250 mcg 00 weekly. Medical (50,000 Branch unit) capsule hydrOXYzine 2021-03 Yes [id number] 25mg Take 1 [facility] 25 mg 2-14 capsule by ity of capsule 00:00: mouth 3 [place] 00 (three) Medical times Branch daily as needed for Itching. ergocalcife 2021-03 Yes [id number] Take 1 [facility] rol, 2-14 capsule by ity of vitamin d2, 00:00: mouth [place] 1,250 mcg 00 weekly. Medical (50,000 Branch unit) capsule hydrOXYzine 2021-03 Yes [id number] 25mg Take 1 [facility] 25 mg 2-14 capsule by ity of capsule 00:00: mouth 3 [place] 00 (three) Medical times Branch daily as needed for Itching. ergocalcife 2021-03 Yes [id number] Take 1 [facility] rol, 2-14 capsule by ity of vitamin d2, 00:00: mouth [place] 1,250 mcg 00 weekly. Medical (50,000 Branch unit) capsule hydrOXYzine 2021-03 Yes [id number] 25mg Take 1 [facility] 25 mg 2-14 capsule by ity of capsule 00:00: mouth 3 [place] 00 (three) Medical times Branch daily as needed for Itching. ergocalcife 2021-03 Yes [id number] Take 1 [facility] rol, 2-14 capsule by ity of vitamin d2, 00:00: mouth [place] 1,250 mcg 00 weekly. Medical (50,000 Branch unit) capsule hydrOXYzine 2021-03 Yes [id number] 25mg Take 1 [facility] 25 mg 2-14 capsule by ity of capsule 00:00: mouth 3 [place] 00 (three) Medical times Branch daily as needed for Itching. ergocalcife 2021-03 Yes [id number] Take 1 [facility] rol, 2-14 capsule by ity of vitamin d2, 00:00: mouth [place] 1,250 mcg 00 weekly. Medical (50,000 Branch unit) capsule hydrOXYzine 2021-03 Yes [id number] 25mg Take 1 [facility] 25 mg 2-14 capsule by ity of capsule 00:00: mouth 3 [place] 00 (three) Medical times Branch daily as needed for Itching. ergocalcife 2021-03 Yes [id number] Take 1 [facility] rol, 2-14 capsule by ity of vitamin d2, 00:00: mouth [place] 1,250 mcg 00 weekly. Medical (50,000 Branch unit) capsule hydrOXYzine 2021-03 Yes [id number] 25mg Take 1 [facility] 25 mg 2-14 capsule by ity of capsule 00:00: mouth 3 [place] 00 (three) Medical times Branch daily as needed for Itching. ergocalcife 2021-03 Yes [id number] Take 1 [facility] rol, 2-14 capsule by ity of vitamin d2, 00:00: mouth [place] 1,250 mcg 00 weekly. Medical (50,000 Branch unit) capsule hydrOXYzine 2021-03 Yes [id number] 25mg Take 1 [facility] 25 mg 2-14 capsule by ity of capsule 00:00: mouth 3 [place] 00 (three) Medical times Branch daily as needed for Itching. ergocalcife 2021-03 Yes [id number] Take 1 [facility] rol, 2-14 capsule by ity of vitamin d2, 00:00: mouth [place] 1,250 mcg 00 weekly. Medical (50,000 Branch unit) capsule hydrOXYzine 2021-03 Yes [id number] 25mg Take 1 [facility] 25 mg 2-14 capsule by ity of capsule 00:00: mouth 3 [place] 00 (three) Medical times Branch daily as needed for Itching. ergocalcife 2021-03 Yes [id number] Take 1 [facility] rol, 2-14 capsule by ity of vitamin d2, 00:00: mouth [place] 1,250 mcg 00 weekly. Medical (50,000 Branch unit) capsule hydrOXYzine 2021-03 Yes [id number] 25mg Take 1 [facility] 25 mg 2-14 capsule by ity of capsule 00:00: mouth 3 [place] 00 (three) Medical times Branch daily as needed for Itching. ergocalcife 2021-03 Yes [id number] Take 1 [facility] rol, 2-14 capsule by ity of vitamin d2, 00:00: mouth [place] 1,250 mcg 00 weekly. Medical (50,000 Branch unit) capsule hydrOXYzine 2021-03 Yes [id number] 25mg Take 1 [facility] 25 mg 2-14 capsule by ity of capsule 00:00: mouth 3 [place] 00 (three) Medical times Branch daily as needed for Itching. ergocalcife 2021-03 Yes [id number] Take 1 [facility] rol, 2-14 capsule by ity of vitamin d2, 00:00: mouth [place] 1,250 mcg 00 weekly. Medical (50,000 Branch unit) capsule hydrOXYzine 2021-03 Yes [id number] 25mg Take 1 [facility] 25 mg 2-14 capsule by ity of capsule 00:00: mouth 3 [place] 00 (three) Medical times Branch daily as needed for Itching. ergocalcife 2021-03 Yes [id number] Take 1 [facility] rol, 2-14 capsule by ity of vitamin d2, 00:00: mouth [place] 1,250 mcg 00 weekly. Medical (50,000 Branch unit) capsule hydrOXYzine 2021-03 Yes [id number] 25mg Take 1 [facility] 25 mg 2-14 capsule by ity of capsule 00:00: mouth 3 [place] 00 (three) Medical times Branch daily as needed for Itching. ergocalcife 2021-03 Yes [id number] Take 1 [facility] rol, 2-14 capsule by ity of vitamin d2, 00:00: mouth [place] 1,250 mcg 00 weekly. Medical (50,000 Branch unit) capsule hydrOXYzine 2021-03 Yes [id number] 25mg Take 1 [facility] 25 mg 2-14 capsule by ity of capsule 00:00: mouth 3 [place] 00 (three) Medical times Branch daily as needed for Itching. ergocalcife 2021-03 Yes [id number] Take 1 [facility] rol, 2-14 capsule by ity of vitamin d2, 00:00: mouth [place] 1,250 mcg 00 weekly. Medical (50,000 Branch unit) capsule hydrOXYzine 2021-03 Yes [id number] 25mg Take 1 [facility] 25 mg 2-14 capsule by ity of capsule 00:00: mouth 3 [place] 00 (three) Medical times Branch daily as needed for Itching. ergocalcife 2021-03 Yes [id number] Take 1 [facility] rol, 2-14 capsule by ity of vitamin d2, 00:00: mouth [place] 1,250 mcg 00 weekly. Medical (50,000 Branch unit) capsule hydrOXYzine 2021-03 Yes [id number] 25mg Take 1 [facility] 25 mg 2-14 capsule by ity of capsule 00:00: mouth 3 [place] 00 (three) Medical times Branch daily as needed for Itching. ergocalcife 2021-03 Yes [id number] Take 1 [facility] rol, 2-14 capsule by ity of vitamin d2, 00:00: mouth [place] 1,250 mcg 00 weekly. Medical (50,000 Branch unit) capsule hydrOXYzine 2021-03 Yes [id number] 25mg Take 1 [facility] 25 mg 2-14 capsule by ity of capsule 00:00: mouth 3 [place] 00 (three) Medical times Branch daily as needed for Itching. ergocalcife 2021-03 Yes [id number] Take 1 [facility] rol, 2-14 capsule by ity of vitamin d2, 00:00: mouth [place] 1,250 mcg 00 weekly. Medical (50,000 Branch unit) capsule hydrOXYzine 2021-03 Yes [id number] 25mg Take 1 [facility] 25 mg 2-14 capsule by ity of capsule 00:00: mouth 3 [place] 00 (three) Medical times Branch daily as needed for Itching. ergocalcife 2021-03 Yes [id number] Take 1 [facility] rol, 2-14 capsule by ity of vitamin d2, 00:00: mouth [place] 1,250 mcg 00 weekly. Medical (50,000 Branch unit) capsule hydrOXYzine 2021-03 Yes [id number] 25mg Take 1 [facility] 25 mg 2-14 capsule by ity of capsule 00:00: mouth 3 [place] 00 (three) Medical times Branch daily as needed for Itching. ergocalcife 2021-03 Yes [id number] Take 1 [facility] rol, 2-14 capsule by ity of vitamin d2, 00:00: mouth [place] 1,250 mcg 00 weekly. Medical (50,000 Branch unit) capsule hydrOXYzine 2021-03 Yes [id number] 25mg Take 1 [facility] 25 mg 2-14 capsule by ity of capsule 00:00: mouth 3 [place] 00 (three) Medical times Branch daily as needed for Itching. ergocalcife 2021-03 Yes [id number] Take 1 [facility] rol, 2-14 capsule by ity of vitamin d2, 00:00: mouth [place] 1,250 mcg 00 weekly. Medical (50,000 Branch unit) capsule hydrOXYzine 2021-03 Yes [id number] 25mg Take 1 [facility] 25 mg 2-14 capsule by ity of capsule 00:00: mouth 3 [place] 00 (three) Medical times Branch daily as needed for Itching. ergocalcife 2021-03 Yes [id number] Take 1 [facility] rol, 2-14 capsule by ity of vitamin d2, 00:00: mouth [place] 1,250 mcg 00 weekly. Medical (50,000 Branch unit) capsule hydrOXYzine 2021-03 Yes [id number] 25mg Take 1 [facility] 25 mg 2-14 capsule by ity of capsule 00:00: mouth 3 [place] 00 (three) Medical times Branch daily as needed for Itching. ergocalcife 2021-03 Yes [id number] Take 1 [facility] rol, 2-14 capsule by ity of vitamin d2, 00:00: mouth [place] 1,250 mcg 00 weekly. Medical (50,000 Branch unit) capsule hydrOXYzine 2021- Yes [id number] 25mg Take 1 [facility] 25 mg 2-14 capsule by ity of capsule 00:00: mouth 3 [place] 00 (three) Medical times Branch daily as needed for Itching. ergocalcife 2021-03 Yes [id number] Take 1 [facility] rol, 2-14 capsule by ity of vitamin d2, 00:00: mouth [place] 1,250 mcg 00 weekly. Medical (50,000 Branch unit) capsule hydrOXYzine 2021-03 Yes [id number] 25mg Take 1 [facility] 25 mg 2-14 capsule by ity of capsule 00:00: mouth 3 [place] 00 (three) Medical times Branch daily as needed for Itching. ergocalcife 2021-03 Yes [id number] Take 1 [facility] rol, 2-14 capsule by ity of vitamin d2, 00:00: mouth [place] 1,250 mcg 00 weekly. Medical (50,000 Branch unit) capsule hydrOXYzine 2021-03 Yes [id number] 25mg Take 1 [facility] 25 mg 2-14 capsule by ity of capsule 00:00: mouth 3 (three) Medical times Branch daily as needed for Itching. hydrOXYzine 2021-03 Yes [id number] 25mg Take 1 [facility] 25 mg 2-14 capsule by ity of capsule 00:00: mouth 3 (three) Medical times Branch daily as needed for Itching. hydrOXYzine 2021-03 Yes [id number] 25mg Take 1 [facility] 25 mg 2-14 capsule by ity of capsule 00:00: mouth 3 (three) Medical times Branch daily as needed for Itching. hydrOXYzine 2021-03 Yes [id number] 25mg Take 1 [facility] 25 mg 2-14 capsule by ity of capsule 00:00: mouth 3 (three) Medical times Branch daily as needed for Itching. hydrOXYzine 2021-03 Yes [id number] 25mg Take 1 [facility] 25 mg 2-14 capsule by ity of capsule 00:00: mouth 3 (three) Medical times Branch daily as needed for Itching. hydrOXYzine 2021-03 Yes [id number] 25mg Take 1 [facility] 25 mg 2-14 capsule by ity of capsule 00:00: mouth 3 (three) Medical times Branch daily as needed for Itching. hydrOXYzine 2021-03 Yes [id number] 25mg Take 1 [facility] 25 mg 2-14 capsule by ity of capsule 00:00: mouth 3 [place] (three) Medical times Branch daily as needed for Itching. hydrOXYzine 2021-03 Yes [id number] 25mg Take 1 [facility] 25 mg 2-14 capsule by ity of capsule 00:00: mouth 3 (three) Medical times Branch daily as needed for Itching. hydrOXYzine 2021-03 Yes [id number] 25mg Take 1 [facility] 25 mg 2-14 capsule by ity of capsule 00:00: mouth 3 (three) Medical times Branch daily as needed for Itching. hydrOXYzine 2021-03 Yes [id number] 25mg Take 1 [facility] 25 mg 2-14 capsule by ity of capsule 00:00: mouth 3 (three) Medical times Branch daily as needed for Itching. hydrOXYzine 2021-03 Yes [id number] 25mg Take 1 [facility] 25 mg 2-14 capsule by [facility] capsule 00:00: mouth (three) Medical times Branch daily as needed for Itching. hydrOXYzine 2021-03 Yes [id number] 25mg Take 1 [facility] 25 mg 2-14 capsule by [facility] of capsule 00:00: mouth (three) Medical times Branch daily as needed for Itching. hydrOXYzine 2021-03 Yes [id number] 25mg Take 1 [facility] 25 mg 2-14 capsule by [facility] of capsule 00:00: mouth (three) Medical times Branch daily as needed for Itching. hydrOXYzine 2021-03 Yes [id number] 25mg Take 1 [facility] 25 mg 2-14 capsule by [facility] of capsule 00:00: mouth (three) Medical times Branch daily as needed for Itching. hydrOXYzine 2021-03 Yes [id number] 25mg Take 1 [facility] 25 mg 2-14 capsule by [facility] of capsule 00:00: mouth (three) Medical times Branch daily as needed for Itching. hydrOXYzine 2021-03 Yes [id number] 25mg Take 1 [facility] 25 mg 2-14 capsule by [facility] of capsule 00:00: mouth 3 (three) Medical times Branch daily as needed for Itching. hydrOXYzine 2021-03 Yes [id number] 25mg Take 1 [facility] 25 mg 2-14 capsule by [facility] of capsule 00:00: mouth 3 (three) Medical times Branch daily as needed for Itching. hydrOXYzine 2021-03 Yes [id number] 25mg Take 1 [facility] 25 mg 2-14 capsule by [facility] of capsule 00:00: mouth 3 [place] 00 (three) Medical times Branch daily as needed for Itching. hydrOXYzine 2021-03 Yes [id number] 25mg Take 1 [facility] 25 mg 2-14 capsule by [facility] of capsule 00:00: mouth 3 [place] 00 (three) Medical times Branch daily as needed for Itching. hydrOXYzine 2021-03 Yes [id number] 25mg Take 1 [facility] 25 mg 2-14 capsule by [facility] of capsule 00:00: mouth 3 [place] 00 (three) Medical times Branch daily as needed for Itching. hydrOXYzine 2021-03 Yes [id number] 25mg Take 1 [facility] 25 mg 2-14 capsule by [facility] of capsule 00:00: mouth 3 [place] 00 (three) Medical times Branch daily as needed for Itching. hydrOXYzine 2021-03- No [id number] 25mg Take 1 [facility] 25 mg 2-14 08-08 capsule by [facility] of capsule 00:00: 00:00 mouth 3 [place] 00 :00 (three) Medical times Branch daily as needed for Itching. hydrOXYzine 2021-03- No [id number] 25mg Take 1 [facility] 25 mg 2-14 08-08 capsule by [facility] of capsule 00:00: 00:00 mouth 3 [place] 00 :00 (three) Medical times Branch daily as needed for Itching. ergocalcife 2021-03- No [id number] Take 1 [facility] rol, 2-14 - capsule by [facility] of vitamin d2, 00:00: 00:00 [place] 1[place]250 [place]cg 00 :00 weekly. Medical (50,000 Branch unit) capsule ergocalcife 2021-03- No [id number] Take 1 [facility] rol, 2-14 - capsule by [facility] of vitamin d2, 00:00: 00:00 mouth [place] 1,250 mcg 00 :00 weekly. Medical (50,000 Branch unit) capsule doxepin 25 2021-03- No [id number] 25mg Take 1 [facility] mg capsule 2-14 - capsule by it y of 00:00: 00:00 mouth at [place] 00 :00 bedtime. Medical Branch doxepin 25 2021-03- No [id number] 25mg Take 1 [facility] mg capsule 2-14 - capsule by it y of 00:00: 00:00 mouth at [place] 00 :00 bedtime. Medical Branch doxepin 2021-03- No [id number] 25mg Take 1 [facility] mg capsule 2-03-08 capsule by it y of 00:00: 00:00 mouth at [place] 00 :00 bedtime. Medical Branch doxepin 25 2021-03- No [id number] 25mg Take 1 [facility] mg capsule 2-14 - capsule by it y of 00:00: 00:00 mouth at [place] 00 :00 bedtime. Medical Branch benzonatate 2021-03 Yes [id number] 100mg Take 1 [facility] (TESSALON 2-13 capsule by ity of PERLES) 100 00:00: mouth [place] mg capsule 00 every 8 Medica l (eight) Branch hours as needed for Cough. benzonatate 2021-03 Yes [id number] 100mg Take 1 [facility] (TESSALON 2-13 capsule by ity of PERLES) 100 00:00: mouth [place] mg capsule 00 every 8 Medica l (eight) Branch hours as needed for Cough. benzonatate 2021-03 Yes [id number] 100mg Take 1 [facility] (TESSALON 2-13 capsule by ity of PERLES) 100 00:00: mouth [place] mg capsule 00 every 8 Medica l (eight) Branch hours as needed for Cough. benzonatate 2021-03 Yes [id number] 100mg Take 1 [facility] (TESSALON 2-13 capsule by ity of PERLES) 100 00:00: mouth [place] mg capsule 00 every 8 Medica l (eight) Branch hours as needed for Cough. benzonatate 2021-03 Yes [id number] 100mg Take 1 [facility] (TESSALON 2-13 capsule by ity of PERLES) 100 00:00: mouth [place] mg capsule 00 every 8 Medica l (eight) Branch hours as needed for Cough. benzonatate 2021-03 Yes [id number] 100mg Take 1 [facility] (TESSALON 2-13 capsule by ity of PERLES) 100 00:00: mouth [place] mg capsule 00 every 8 Medica l (eight) Branch hours as needed for Cough. benzonatate 2021-03 Yes [id number] 100mg Take 1 [facility] (TESSALON 2-13 capsule by ity of PERLES) 100 00:00: mouth [place] mg capsule 00 every 8 Medica l (eight) Branch hours as needed for Cough. benzonatate 2021-03 Yes [id number] 100mg Take 1 [facility] (TESSALON 2-13 capsule by itrohan of BRAD) 100 00:00: mouth [place] mg capsule 00 every 8 Medica l (eight) Branch hours as needed for Cough. benzonatate 2021-03- No [id number] 100mg Take 1 [facility] (TESSALON 2-13 -08 capsule by itrohan of BRAD) 100 00:00: 00:00 mouth [place] mg capsule 00 :00 every 8 Medica l (eight) Branch hours as needed for Cough. benzonatate 2021-03- No [id number] 100mg Take 1 [facility] (TESSALON 2-13 - capsule by itrohan of BRAD) 100 00:00: 00:00 mouth [place] mg capsule 00 :00 every 8 Medica l (eight) Branch hours as needed for Cough. benzonatate 2021-03- No [id number] 100mg Take 1 [facility] (TESSALON 2-13 -08 [...] s: acute pain, chronic pain acetaminoph 2021-03 No 274 1{tbl} Take 1 [facility] en-codeine 03-30 tablet by [facility]y of (TYLENOL-CO 00:00: 00:00 mouth [place] DEINE #3) 00 :00 every 6 Medical 300-30 mg (six) Branch tablet hours as needed for Pain (scale 7-10). Indication s: acute pain, chronic pain acetaminoph 2021-03 No 2744 1{tbl} Take 1 [facility] en-codeine 03-30 tablet by ity of (TYLENOL-CO 00:00: 00:00 mouth [place] DEINE #3) 00 :00 every 6 Medical 300-30 mg (six) Branch tablet hours as needed for Pain (scale 7-10). Indication s: acute pain, chronic pain acetaminoph 2021-03 No 2744 1{tbl} Take 1 [facility] en-codeine 03-30 tablet by ity of (TYLENOL-CO 00:00: 00:00 mouth [place] DEINE #3) 00 :00 every 6 Medical 300-30 mg (six) Branch tablet hours as needed for Pain (scale 7-10). Indication s: acute pain, chronic pain acetaminoph 2021-03 No 2744 1{tbl} Take 1 [facility] en-codeine 03-30 tablet by ity of (TYLENOL-CO 00:00: 00:00 mouth [place] DEINE #3) 00 :00 every 6 Medical 300-30 mg (six) Branch tablet hours as needed for Pain (scale 7-10). Indication s: acute pain, chronic pain acetaminoph 2021-03 No 5 1{tbl} Take 1 [facility] en-codeine 03-30 tablet by ity of (TYLENOL-CO 00:00: 00:00 mouth [place] DEINE #3) 00 :00 every 6 Medical 300-30 mg (six) Branch tablet hours as needed for Pain (scale 7-10). Indication s: acute pain, chronic pain acetaminoph 2021-03 No 2745 1{tbl} Take 1 [facility] en-codeine 03-30- tablet by ity of (TYLENOL-CO 00:00: 00:00 mouth [place] DEINE #3) 00 :00 every 6 Medical 300-30 mg (six) Branch tablet hours as needed for Pain (scale 7-10). Indication s: acute pain, chronic pain acetaminoph 2021-03- No 2745 1{tbl} Take 1 [facility] n[facility] en-codeine 03-30- tablet by ity of (TYLENOL-CO 00:00: 00:00 mouth [place] DEINE #3) 00 :00 every 6 Medical 300-30 mg (six) Branch tablet hours as needed for Pain (scale 7-10). Indication s: acute pain, chronic pain benzonatate 2021-03 Yes [id number] 100mg Take 1 [facility] (TESSALON 1-25 capsule by ity of PERLES) 100 00:00: mouth [place] mg capsule 00 every 8 Medica l (eight) Branch hours as needed for Cough. benzonatate 2021-03 Yes [id number] 100mg Take 1 [facility] (TESSALON 1-25 capsule by ity of PERLES) 100 00:00: mouth [place] mg capsule 00 every 8 Medica l (eight) Branch hours as needed for Cough. benzonatate 2021-03 Yes [id number] 100mg Take 1 [facility] (TESSALON 1-25 capsule by ity of PERLES) 100 00:00: mouth [place] mg capsule 00 every 8 Medica l (eight) Branch hours as needed for Cough. benzonatate 2021-03 Yes [id number] 100mg Take 1 [facility] (TESSALON 1-25 capsule by ity of PERLES) 100 00:00: mouth [place] mg capsule 00 every 8 Medica l (eight) Branch hours as needed for Cough. benzonatate 2021-03 Yes [id number] 100mg Take 1 [facility] (TESSALON 1-25 capsule by ity of PERLES) 100 00:00: mouth [place] mg capsule 00 every 8 Medica l (eight) Branch hours as needed for Cough. benzonatate 2021-03 No [id number] 100mg Take 1 [facility] (TESSALON 1-25 12-12 capsule by ity of PERLES) 100 00:00: 00:00 mouth [place] mg capsule 00 :00 every 8 Medica l (eight) Branch hours as needed for Cough. hydrOXYzine 2021-03 Yes [id number] 25mg Take 1 [facility] 25 mg 1-17 capsule by [facility] of capsule 00:00: mouth 3 (three) Medical times Branch daily as needed for Itching. hydrOXYzine 2021-03 Yes [id number] 25mg Take 1 [facility] 25 mg 1-17 capsule by [facility] of capsule 00:00: mouth 3 (three) Medical times Branch daily as needed for Itching. hydrOXYzine 2021-03 Yes [id number] 25mg Take 1 [facility] 25 mg 1-17 capsule by [facility] of capsule 00:00: mouth 3 (three) Medical times Branch daily as needed for Itching. hydrOXYzine 2021-03 Yes [id number] 25mg Take 1 [facility] 25 mg 1-17 capsule by [facility] of capsule 00:00: mouth 3 (three) Medical times Branch daily as needed for Itching. hydrOXYzine 2021-03 Yes [id number] 25mg Take 1 [facility] 25 mg 1-17 capsule by [facility] of capsule 00:00: mouth (three) Medical times Branch daily as needed for Itching. hydrOXYzine 2021-03 Yes [id number] 25mg Take 1 [facility] 25 mg 1-17 capsule by [facility] of capsule 00:00: mouth (three) Medical times Branch daily as needed for Itching. hydrOXYzine 2021-03 Yes [id number] 25mg Take 1 [facility] 25 mg 1-17 capsule by [facility] of capsule 00:00: mouth (three) Medical times Branch daily as needed for Itching. hydrOXYzine 2021-03 Yes [id number] 25mg Take 1 [facility] 25 mg 1-17 capsule by [facility] of capsule 00:00: mouth 3 [place] (three) Medical times Branch daily as needed for Itching. hydrOXYzine 2021-03- No [id number] 25mg Take 1 [facility] 25 mg 1-17 12-12 capsule by ity of capsule 00:00: 00:00 mouth 3 [place] 00 :00 (three) Medical times Branch daily as needed for Itching. pravastatin 2021-03 Yes [id number] 40mg Take 1 [facility] 40 mg 1-11 tablet by ity of tablet 00:00: mouth at [place] [address] bedtime. Medical Branch pravastatin 2021-03 Yes [id number] 40mg Take 1 [facility] 40 mg 1-11 tablet by ity of tablet 00:00: mouth at [place] [address] bedtime. Medical Branch pravastatin 2021-03 Yes [id number] 40mg Take 1 [facility] 40 mg 1-11 tablet by ity of tablet 00:00: mouth at [place] [address] bedtime. Medical Branch pravastatin 2021-03 Yes [id number] 40mg Take 1 [facility] 40 mg 1-11 tablet by [facility]y of tablet 00:00: mouth at [place] [address] bedtime. Medical Branch pravastatin 2021-03 Yes [id number] 40mg Take 1 [facility] 40 mg 1-11 tablet by ity of tablet 00:00: mouth at [place] [address] bedtime. Medical Branch pravastatin 2021-03 Yes [id number] 40mg Take 1 [facility] 40 mg 1-11 tablet by ity of tablet 00:00: mouth at [place] [address] bedtime. Medical Branch pravastatin 2021-03 Yes [id number] 40mg Take 1 [facility] 40 mg 1-11 tablet by ity of tablet 00:00: mouth at [place] [address] bedtime. Medical Branch pravastatin 2021-03 Yes [id number] 40mg Take 1 [facility] 40 mg 1-11 tablet by ity of tablet 00:00: mouth at [place] [address] bedtime. Medical Branch pravastatin 2021-03 Yes [id number] 40mg Take 1 [facility] 40 mg 1-11 tablet by [facility]y of tablet 00:00: mouth at [place] [address] bedtime. Medical Branch pravastatin 2021-03 Yes [id number] 40mg Take 1 [facility] 40 mg 1-11 tablet by [facility]y of tablet 00:00: mouth at [place] [address] bedtime. Medical Branch pravastatin 2021-03 Yes [id number] 40mg Take 1 [facility] 40 mg 1-11 tablet by [facility]y of tablet 00:00: mouth at [place] [address] bedtime. Medical Branch pravastatin 2021-03 Yes [id number] 40mg Take 1 [facility] 40 mg 1-11 tablet by [facility]y of tablet 00:00: mouth at [place] [address] bedtime. Medical Branch pravastatin 2021-03 Yes [id number] 40mg Take 1 [facility] 40 mg 1-11 tablet by [facility]y of tablet 00:00: mouth at [place] [address] bedtime. Medical Branch pravastatin 2021-03 Yes [id number] 40mg Take 1 [facility] 40 mg 1-11 tablet by [facility]y of tablet 00:00: mouth at [place] [address] bedtime. Medical Branch pravastatin 2021-03 Yes [id number] 40mg Take 1 [facility] 40 mg 1-11 tablet by [facility]y of tablet 00:00: mouth at [place] [address] bedtime. Medical Branch pravastatin 2021-03 Yes [id number] 40mg Take 1 [facility] 40 mg 1-11 tablet by [facility]y of tablet 00:00: mouth at [place] [address] bedtime. Medical Branch pravastatin 2021-03 Yes [id number] 40mg Take 1 [facility] 40 mg 1-11 tablet by [facility] of tablet 00:00: mouth at [place] [address] bedtime. Medical Branch pravastatin 2021-03 Yes [id number] 40mg Take 1 [facility] 40 mg 1-11 tablet by [facility]y of tablet 00:00: mouth at [place] [address] bedtime. Medical Branch pravastatin 2021-03 Yes [id number] 40mg Take 1 [facility] 40 mg 1-11 tablet by [facility]y of tablet 00:00: mouth at [place] [address] bedtime. Medical Branch pravastatin 2021-03 Yes [id number] 40mg Take 1 [facility] 40 mg 1-11 tablet by [facility]y of tablet 00:00: mouth at [place] [address] bedtime. Medical Branch pravastatin 2021-03 Yes [id number] 40mg Take 1 [facility] 40 mg 1-11 tablet by [facility]y of tablet 00:00: mouth at [place] [address] bedtime. Medical Branch pravastatin 2021-03 Yes [id number] 40mg Take 1 [facility] 40 mg 1-11 tablet by [facility]y of tablet 00:00: mouth at [place] [address] bedtime. Medical Branch pravastatin 2021-03 Yes [id number] 40mg Take 1 [facility] 40 mg 1-11 tablet by [facility]y of tablet 00:00: mouth at [place] [address] bedtime. Medical Branch pravastatin 2021-03 Yes [id number] 40mg Take 1 [facility] 40 mg 1-11 tablet by ity of tablet 00:00: mouth at [place] [address] bedtime. Medical Branch pravastatin 2021-03 Yes [id number] 40mg Take 1 [facility] 40 mg 1-11 tablet by ity of tablet 00:00: mouth at [place] [address] bedtime. Medical Branch pravastatin 2021-03 Yes [id number] 40mg Take 1 [facility] 40 mg 1-11 tablet by ity of tablet 00:00: mouth at [place] [address] bedtime. Medical Branch pravastatin 2021-03 Yes [id number] 40mg Take 1 [facility] 40 mg 1-11 tablet by [facility]y of tablet 00:00: mouth at [place] [address] bedtime. Medical Branch pravastatin 2021-03 Yes [id number] 40mg Take 1 [facility] 40 mg 1-11 tablet by [facility]y of tablet 00:00: mouth at [place] [address] bedtime. Medical Branch pravastatin 2021-03 Yes [id number] 40mg Take 1 [facility] 40 mg 1-11 tablet by [facility]y of tablet 00:00: mouth at [place] [address] bedtime. Medical Branch pravastatin 2021-03 Yes [id number] 40mg Take 1 [facility] 40 mg 1-11 tablet by [facility]y of tablet 00:00: mouth at [place] [address] bedtime. Medical Branch pravastatin 2021-03 Yes [id number] 40mg Take 1 [facility] 40 mg 1-11 tablet by ity of tablet 00:00: mouth at [place] [address] bedtime. Medical Branch pravastatin 2021-03 Yes [id number] 40mg Take 1 [facility] 40 mg 1-11 tablet by ity of tablet 00:00: mouth at [place] [address] bedtime. Medical Branch pravastatin 2021-03 Yes [id number] 40mg Take 1 [facility] 40 mg 1-11 tablet by [facility]y of tablet 00:00: mouth at [place] [address] bedtime. Medical Branch pravastatin 2021-03 Yes [id number] 40mg Take 1 [facility] 40 mg 1-11 tablet by [facility]y of tablet 00:00: mouth at [place] [address] bedtime. Medical Branch pravastatin 2021-03 Yes [id number] 40mg Take 1 [facility] 40 mg 1-11 tablet by [facility]y of tablet 00:00: mouth at [place] [address] bedtime. Medical Branch pravastatin 2021-03 Yes [id number] 40mg Take 1 [facility] 40 mg 1-11 tablet by ity of tablet 00:00: mouth at [place] [address] bedtime. Medical Branch pravastatin 2021-03 Yes [id number] 40mg Take 1 [facility] 40 mg 1-11 tablet by [facility]y of tablet 00:00: mouth at [place] [address] bedtime. Medical Branch pravastatin 2021-03 Yes [id number] 40mg Take 1 [facility] 40 mg 1-11 tablet by [facility]y of tablet 00:00: mouth at [place] [address] bedtime. Medical Branch pravastatin 2021-03 Yes [id number] 40mg Take 1 [facility] 40 mg 1-11 tablet by [facility]y of tablet 00:00: mouth at [place] [address] bedtime. Medical Branch pravastatin 2021-03 Yes [id number] 40mg Take 1 [facility] 40 mg 1-11 tablet by [facility]y of tablet 00:00: mouth at [place] [address] bedtime. Medical Branch pravastatin 2021-03 Yes [id number] 40mg Take 1 [facility] 40 mg 1-11 tablet by [facility]y of tablet 00:00: mouth at [place] [address] bedtime. Medical Branch pravastatin 2021-03 Yes [id number] 40mg Take 1 [facility] 40 mg 1-11 tablet by [facility]y of tablet 00:00: mouth at [place] [address] bedtime. Medical Branch pravastatin 2021-03 Yes [id number] 40mg Take 1 [facility] 40 mg 1-11 tablet by [facility]y of tablet 00:00: mouth at [place] [address] bedtime. Medical Branch pravastatin 2021-03 Yes [id number] 40mg Take 1 [facility] 40 mg 1-11 tablet by [facility]y of tablet 00:00: mouth at [place] [address] bedtime. Medical Branch pravastatin 2021-03 Yes [id number] 40mg Take 1 [facility] 40 mg 1-11 tablet by [facility] of tablet 00:00: mouth at [place] [address] bedtime. Medical Branch pravastatin 2021-03 Yes [id number] 40mg Take 1 [facility] 40 mg 1-11 tablet by [facility] of tablet 00:00: mouth at [place] [address] bedtime. Medical Branch pravastatin 2021-03 Yes [id number] 40mg Take 1 [facility] 40 mg 1-11 tablet by [facility] of tablet 00:00: mouth at [place] [address] bedtime. Medical Branch pravastatin 2021-03 Yes [id number] 40mg Take 1 [facility] 40 mg 1-11 tablet by [facility]y of tablet 00:00: mouth at [place] [address] bedtime. [facility] Branch pravastatin 2021-03 Yes [id number] 40mg Take 1 [facility] 40 mg 1-11 tablet by [facility]y of tablet 00:00: mouth at [place] [address] bedtime. [facility] Branch pravastatin 2021-03 Yes [id number] 40mg Take 1 [facility] 40 mg 1-11 tablet by [facility]y of tablet 00:00: mouth at [place] [address] bedtime. Medical Branch pravastatin 2021-03 Yes [id number] 40mg Take 1 [facility] 40 mg 1-11 tablet by [facility]y of tablet 00:00: mouth at [place] [address] bedtime. [facility] Branch pravastatin 2021-03 Yes [id number] 40mg Take 1 [facility] 40 mg 1-11 tablet by [facility]y of tablet 00:00: mouth at [place] [address] bedtime. [facility] Branch pravastatin 2021-03 Yes [id number] 40mg Take 1 [facility] 40 mg 1-11 tablet by [facility] of tablet 00:00: mouth at [place] [address] bedtime. [facility] Branch pravastatin 2021-03 Yes [id number] 40mg Take 1 [facility] 40 mg 1-11 tablet by [facility] of tablet 00:00: mouth at [place] [address] bedtime. [facility] Branch pravastatin 2021-03 Yes [id number] 40mg Take 1 [facility] 40 mg 1-11 tablet by [facility] of tablet 00:00: mouth at [place] [address] bedtime. [facility] Branch pravastatin 2021-03 Yes [id number] 40mg Take 1 [facility] 40 mg 1-11 tablet by [facility] of tablet 00:00: mouth at [place] [address] bedtime. [facility] Branch pravastatin 2021-03 Yes [id number] 40mg Take 1 [facility] 40 mg 1-11 tablet by [facility] of tablet 00:00: mouth at [place] [address] bedtime. [facility] Branch pravastatin 2021-03 Yes [id number] 40mg Take 1 [facility] 40 mg 1-11 tablet by [facility] of tablet 00:00: mouth at [place] [address] bedtime. [facility] Branch pravastatin 2021-03 Yes [id number] 40mg Take 1 [facility] 40 mg 1-11 tablet by [facility] of tablet 00:00: mouth at [place] [address] bedtime. [facility] Branch pravastatin 2021-03 Yes [id number] 40mg Take 1 [facility] 40 mg 1-11 tablet by [facility]y of tablet 00:00: mouth at [place] [address] bedtime. [facility] Branch pravastatin 2021-03 Yes [id number] 40mg Take 1 [facility] 40 mg 1-11 tablet by [facility]y of tablet 00:00: mouth at [place] [address] bedtime. [facility] Branch pravastatin 2021-03 Yes [id number] 40mg Take 1 [facility] 40 mg 1-11 tablet by [facility]y of tablet 00:00: mouth at [place] [address] bedtime. [facility] Branch pravastatin 2021-03 Yes [id number] 40mg Take 1 [facility] 40 mg 1-11 tablet by [facility] of tablet 00:00: mouth at [place] [address] bedtime. [facility] Branch pravastatin 2021-03 Yes [id number] 40mg Take 1 [facility] 40 mg 1-11 tablet by [facility] of tablet 00:00: mouth at [place] [address] bedtime. [facility] Branch pravastatin 2021-03 Yes [id number] 40mg Take 1 [facility] 40 mg 1-11 tablet by [facility] of tablet 00:00: mouth at [place] [address] bedtime. [facility] Branch pravastatin 2021-03 Yes [id number] 40mg Take 1 [facility] 40 mg 1-11 tablet by [facility] of tablet 00:00: mouth at [place] [address] bedtime. [facility] Branch pravastatin 2021-03 Yes [id number] 40mg Take 1 [facility] 40 mg 1-11 tablet by [facility] of tablet 00:00: mouth at [place] [address] bedtime. [facility] Branch pravastatin 2021-03 Yes [id number] 40mg Take 1 [facility] 40 mg 1-11 tablet by [facility] of tablet 00:00: mouth at [place] [address] bedtime. [facility] pravastatin 2021-03 Yes [id number] 40mg Take 1 [facility] 40 mg 1-11 tablet by [facility] of tablet 00:00: mouth at [place] [address] bedtime. [facility] pravastatin 2021-03 Yes [id number] 40mg Take 1 [facility] 40 mg 1-11 tablet by [facility] of tablet 00:00: mouth at [place] [address] bedtime. [facility] Branch pravastatin 2021-03 Yes [id number] 40mg Take 1 [facility] 40 mg 1-11 tablet by [facility] of tablet 00:00: mouth at [place] [address] bedtime. [facility] pravastatin 2021-03 Yes [id number] 40mg Take 1 [facility] 40 mg 1-11 tablet by [facility] of tablet 00:00: mouth at [place] [address] bedtime. [facility] pravastatin 2021-03 Yes [id number] 40mg Take 1 [facility] 40 mg 1-11 tablet by [facility] of tablet 00:00: mouth at [place] [address] bedtime. [facility] pravastatin 2021-03 Yes [id number] 40mg Take 1 [facility] 40 mg 1-11 tablet by [facility] of tablet 00:00: mouth at [place] [address] bedtime. [facility] pravastatin 2021-03 Yes [id number] 40mg Take 1 [facility] 40 mg 1-11 tablet by [facility] of tablet 00:00: mouth at [place] [address] bedtime. [facility] pravastatin 2021-03 Yes [id number] 40mg Take 1 [facility] 40 mg 1-11 tablet by [facility] of tablet 00:00: mouth at [place] [address] bedtime. [facility] pravastatin 2021-03 Yes [id number] 40mg Take 1 [facility] 40 mg 1-11 tablet by [facility] of tablet 00:00: mouth at [place] [address] bedtime. [facility] pravastatin 2021-03 Yes [id number] 40mg Take 1 [facility] 40 mg 1-11 tablet by [facility] of tablet 00:00: mouth at [place] [address] bedtime. [facility] pravastatin 2021-03 Yes [id number] 40mg Take 1 [facility] 40 mg 1-11 tablet by [facility] of tablet 00:00: mouth at [place] [address] bedtime. [facility] pravastatin 2021-03 Yes [id number] 40mg Take 1 [facility] 40 mg 1-11 tablet by [facility] of tablet 00:00: mouth at [place] [address] bedtime. [facility] pravastatin 2021-03 Yes [id number] 40mg Take 1 [facility] 40 mg 1-11 tablet by [facility] of tablet 00:00: mouth at [place] [address] bedtime. [facility] pravastatin 2021-03 Yes [id number] 40mg Take 1 [facility] 40 mg 1-11 tablet by [facility] of tablet 00:00: mouth at [place] [address] bedtime. [facility] pravastatin 2021-03 Yes [id number] 40mg Take 1 [facility] 40 mg 1-11 tablet by [facility]y of tablet 00:00: mouth at [place] [address] bedtime. [facility] pravastatin 2021-03 Yes [id number] 40mg Take 1 [facility] 40 mg 1-11 tablet by [facility] of tablet 00:00: mouth at [place] [address] bedtime. [facility] pravastatin 2021-03 Yes [id number] 40mg Take 1 [facility] 40 mg 1-11 tablet by [facility] of tablet 00:00: mouth at [place] [address] bedtime. [facility] pravastatin 2021-03 Yes [id number] 40mg Take 1 [facility] 40 mg 1-11 tablet by [facility] of tablet 00:00: mouth at [place] [address] bedtime. [facility] pravastatin 2021-03 Yes [id number] 40mg Take 1 [facility] 40 mg 1-11 tablet by [facility] of tablet 00:00: mouth at [place] [address] bedtime. [facility] pravastatin 2021-03 Yes [id number] 40mg Take 1 [facility] 40 mg 1-11 tablet by [facility] of tablet 00:00: mouth at [place] [address] bedtime. [facility] pravastatin 2021-03 Yes [id number] 40mg Take 1 [facility] 40 mg 1-11 tablet by [facility] of tablet 00:00: mouth at [place] [address] bedtime. [facility] pravastatin 2021-03 Yes [id number] 40mg Take 1 [facility] 40 mg 1-11 tablet by [facility] of tablet 00:00: mouth at [place] [address] bedtime. [facility] pravastatin 2021-03 Yes [id number] 40mg Take 1 [facility] 40 mg 1-11 tablet by [facility] of tablet 00:00: mouth at [place] [address] bedtime. [facility] pravastatin 2021-03 Yes [id number] 40mg Take 1 [facility] 40 mg 1-11 tablet by [facility] of tablet 00:00: mouth at [place] [address] bedtime. [facility] pravastatin 2021-03 Yes [id number] 40mg Take 1 [facility] 40 mg 1-11 tablet by [facility] of tablet 00:00: mouth at [place] [address] bedtime. [facility] pravastatin 2021-03 Yes [id number] 40mg Take 1 [facility] 40 mg 1-11 tablet by [facility] of tablet 00:00: mouth at [place] [address] bedtime. [facility] pravastatin 2021-03 Yes [id number] 40mg Take 1 [facility] 40 mg 1-11 tablet by [facility] of tablet 00:00: mouth at [place] [address] bedtime. [facility] pravastatin 2021-03 Yes [id number] 40mg Take 1 [facility] 40 mg 1-11 tablet by [facility] of tablet 00:00: mouth at [place] [address] bedtime. [facility] pravastatin 2021-03 Yes [id number] 40mg Take 1 [facility] 40 mg 1-11 tablet by ity of tablet 00:00: mouth at [place] [address] bedtime. Medical Branch pravastatin 2021-03 Yes [id number] 40mg Take 1 [facility] 40 mg 1-11 tablet by [facility] of tablet 00:00: mouth at [place] [address] bedtime. Medical Branch pravastatin 2021-03 Yes [id number] 40mg Take 1 [facility] 40 mg 1-11 tablet by [facility] of tablet 00:00: mouth at [place] [address] bedtime. Medical [facility] pravastatin 2021-03 Yes [id number] 40mg Take 1 [facility] 40 mg 1-11 tablet by [facility] of tablet 00:00: mouth at [place] [address] bedtime. Medical Branch pravastatin 2021-03 Yes [id number] 40mg Take 1 [facility] 40 mg 1-11 tablet by [facility] of tablet 00:00: mouth at [place] [address] bedtime. Medical Branch doxepin 2021-03 Yes [id number] 25mg Take 1 [facility] mg capsule 1-09 capsule by ity of 00:00: mouth at [place] [address] bedtime. Medical Branch doxepin 2021-03 Yes [id number] 25mg Take 1 [facility] mg capsule 1-09 capsule by [facility] of 00:00: mouth at [place] [address] bedtime. [facility] doxepin 2021-03 Yes [id number] 25mg Take 1 [facility] mg capsule 1-09 capsule by it[facility] of 00:00: mouth at [place] [address] bedtime. Medical Branch doxepin 2021-03 Yes [id number] 25mg Take 1 [facility] mg capsule 1-09 capsule by ity of 00:00: mouth at [place] [address] bedtime. Medical Branch doxepin 2021-03 Yes [id number] 25mg Take 1 [facility] mg capsule 1-09 capsule by [facility] of 00:00: mouth at [place] [address] bedtime. Medical Branch doxepin 2021-03 Yes [id number] 25mg Take 1 [facility] mg capsule 1-09 capsule by [facility] of 00:00: mouth at [place] [address] bedtime. Medical Branch doxepin 2021-03 Yes [id number] 25mg Take 1 [facility] mg capsule 1-09 capsule by [facility] of 00:00: mouth at [place] [address] bedtime. Medical Branch doxepin 2021-03 Yes [id number] 25mg Take 1 [facility] mg capsule 1-09 capsule by [facility] of 00:00: mouth at [place] [address] bedtime. [facility] doxepin 2021-03 Yes [id number] 25mg Take 1 [facility] mg capsule 1-09 capsule by [facility] of 00:00: mouth at [place] [address] bedtime. Medical Branch doxepin 2021-03 Yes [id number] 25mg Take 1 [facility] mg capsule 1-09 capsule by [facility] of 00:00: mouth at [place] [address] bedtime. Medical Branch doxepin 2021-03 Yes [id number] 25mg Take 1 [facility] mg capsule 1-09 capsule by [facility] of 00:00: mouth at [place] [address] bedtime. Medical Branch doxepin [id number] 25mg Take 1 [facility] mg capsule 1-09 -12 capsule by it y of 00:00: 00:00 mouth at [place] 00 :00 bedtime. Medical Branch bumetanide 2021-03 Yes 1mg Take 1 mg Un renetta 1 mg tablet 1-07 by mouth ity of 09:58: in the [place] [address] morning. Medical Indication Branch s: reports kidney Dr Rx, ~2 mths ago bumetanide 2021-03 Yes 1mg Take 1 mg Un renetta 1 mg tablet 1-07 by mouth ity of 09:58: in the [place] [address] morning. Medical Indication Branch s: reports kidney Dr Rx, ~2 mths ago bumetanide 2021-03 Yes 1mg Take 1 mg Un renetta 1 mg tablet 1-07 by mouth ity of 09:58: in the [place] [address] morning. Medical Indication Branch s: reports kidney Dr Rx, ~2 mths ago bumetanide 2021-03 Yes 1mg Take 1 mg Un renetta 1 mg tablet 1-07 by mouth ity of 09:58: in the [place] [address] morning. Medical Indication Branch s: reports kidney Dr Rx, ~2 mths ago bumetanide 2021-03 Yes 1mg Take 1 mg Un renetta 1 mg tablet 1-07 by mouth ity of 09:58: in the [place] [address] morning. Medical Indication Branch s: reports kidney Dr Rx, ~2 mths ago bumetanide 2021-03 Yes 1mg Take 1 mg Un renetta 1 mg tablet 1-07 by mouth ity of 09:58: in the [place] [address] morning. Medical Indication Branch s: reports kidney Dr Rx, ~2 mths ago bumetanide 2021-03 Yes 1mg Take 1 mg Un renetta 1 mg tablet 1-07 by mouth ity of 09:58: in the [place] [address] morning. Medical Indication Branch s: reports kidney Dr Rx, ~2 mths ago bumetanide 2021-03 Yes 1mg Take 1 mg Un renetta 1 mg tablet 1-07 by mouth ity of 09:58: in the [place] [address] morning. Medical Indication Branch s: reports kidney Dr Rx, ~2 mths ago bumetanide 2021-03 Yes 1mg Take 1 mg Un renetta 1 mg tablet 1-07 by mouth ity of 09:58: in the [place] [address] morning. Medical Indication Branch s: reports kidney Dr Rx, ~2 mths ago bumetanide 2021-03 Yes 1mg Take 1 mg Un renetta 1 mg tablet 1-07 by mouth ity of 09:58: in the [place] [address] morning. Medical Indication Branch s: reports kidney Dr Rx, ~2 mths ago bumetanide 2021-03 Yes 1mg Take 1 mg Un renetta 1 mg tablet 1-07 by mouth ity of 09:58: in the [place] [address] morning. Medical Indication Branch s: reports kidney Dr Rx, ~2 mths ago bumetanide 2021-03 Yes 1mg Take 1 mg Un renetta 1 mg tablet 1-07 by mouth ity of 09:58: in the [place] [address] morning. Medical Indication Branch s: reports kidney Dr Rx, ~2 mths ago bumetanide 2021-03 Yes 1mg Take 1 mg Un renetta 1 mg tablet 1-07 by mouth ity of 09:58: in the [place] [address] morning. Medical Indication Branch s: reports kidney Dr Rx, ~2 mths ago bumetanide 2021-03 Yes 1mg Take 1 mg Un renetta 1 mg tablet 1-07 by mouth ity of 09:58: in the [place] [address] morning. Medical Indication Branch s: reports kidney Dr Rx, ~2 mths ago bumetanide 2021-03 Yes 1mg Take 1 mg Un renetta 1 mg tablet 1-07 by mouth ity of 09:58: in the [place] [address] morning. Medical Indication Branch s: reports kidney Dr Rx, ~2 mths ago bumetanide 2021-03 Yes 1mg Take 1 mg Un renetta 1 mg tablet 1-07 by mouth ity of 09:58: in the [place] [address] morning. Medical Indication Branch s: reports kidney Dr Rx, ~2 mths ago bumetanide 2021-03 Yes 1mg Take 1 mg Un renetta 1 mg tablet 1-07 by mouth ity of 09:58: in the [place] [address] morning. Medical Indication Branch s: reports kidney Dr Rx, ~2 mths ago bumetanide 2021-03 Yes 1mg Take 1 mg Un renetta 1 mg tablet 1-07 by mouth ity of 09:58: in the [place] [address] morning. Medical Indication Branch s: reports kidney Dr Rx, ~2 mths ago bumetanide 2021-03 Yes 1mg Take 1 mg Un renetta 1 mg tablet 1-07 by mouth ity of 09:58: in the [place] 16 morning. Medical Indication Branch s: reports kidney Dr Rx, ~2 mths ago baclofen 2021-03 Yes [id number] 10mg Take 1 [facility] mg tablet 1-02 tablet by ity o f 00:00: mouth 3 [place] 00 (three) Medical times Branch daily as needed for Pain (scale 7-10). baclofen 2021-03 Yes [id number] 10mg Take 1 [facility] mg tablet 1-02 tablet by ity o f 00:00: mouth 3 [place] 00 (three) Medical times Branch daily as needed for Pain (scale 7-10). benzonatate 2021-03 Yes [id number] 100mg Take 1 [facility] (TESSALON 1-02 capsule by ity of PERLES) 100 00:00: mouth [place] mg capsule 00 every 8 Medica l (eight) Branch hours as needed for Cough. baclofen 2021-03 Yes [id number] 10mg Take 1 [facility] mg tablet 1-02 tablet by ity o f 00:00: mouth 3 [place] 00 (three) Medical times Branch daily as needed for Pain (scale 7-10). benzonatate 2021-03 Yes [id number] 100mg Take 1 [facility] (TESSALON 1-02 capsule by ity of PERLES) 100 00:00: mouth [place] mg capsule 00 every 8 Medica l (eight) Branch hours as needed for Cough. baclofen 2021-03 Yes [id number] 10mg Take 1 [facility] mg tablet 1-02 tablet by ity o f 00:00: mouth 3 [place] 00 (three) Medical times Branch daily as needed for Pain (scale 7-10). benzonatate 2021-03 Yes [id number] 100mg Take 1 [facility] (TESSALON 1-02 capsule by ity of PERLES) 100 00:00: mouth [place] mg capsule 00 every 8 Medica l (eight) Branch hours as needed for Cough. baclofen 2021-03 Yes [id number] 10mg Take 1 [facility] mg tablet 1-02 tablet by ity o f 00:00: mouth 3 [place] 00 (three) Medical times Branch daily as needed for Pain (scale 7-10). benzonatate 2021-03 Yes [id number] 100mg Take 1 [facility] (TESSALON 1-02 capsule by ity of PERLES) 100 00:00: mouth [place] mg capsule 00 every 8 Medica l (eight) Branch hours as needed for Cough. baclofen 2021-03 Yes [id number] 10mg Take 1 [facility] mg tablet 1-02 tablet by ity o f 00:00: mouth 3 [place] 00 (three) Medical times Branch daily as needed for Pain (scale 7-10). benzonatate 2021-03 Yes [id number] 100mg Take 1 [facility] (TESSALON 1-02 capsule by ity of PERLDipJar) 100 00:00: mouth [place] mg capsule 00 every 8 Medica l (eight) Branch hours as needed for Cough. baclofen 2021-03 Yes [id number] 10mg Take 1 [facility] mg tablet 1-02 tablet by ity o f 00:00: mouth 3 [place] 00 (three) Medical times Branch daily as needed for Pain (scale 7-10). benzonatate 2021-03 Yes [id number] 100mg Take 1 [facility] (TESSALON 1-02 capsule by [employer] of PERLDipJar) 100 00:00: mouth [place] mg capsule 00 every 8 Medica l (eight) Branch hours as needed for Cough. baclofen 2021-03 Yes [id number] 10mg Take 1 [facility] mg tablet 1-02 tablet by ity o f 00:00: mouth 3 [place] 00 (three) Medical times Branch daily as needed for Pain (scale 7-10). benzonatate 2021-03 Yes [id number] 100mg Take 1 [facility] (TESSALON 1-02 capsule by [employer] [facility] [employer]) 100 00:00: mouth [place] mg capsule 00 every 8 Medica l (eight) Branch hours as needed for Cough. baclofen 2021-03 Yes [id number] 10mg Take 1 [facility] mg tablet 1-02 tablet by ity o f 00:00: mouth 3 [place] 00 (three) Medical times Branch daily as needed for Pain (scale 7-10). baclofen 2021-03 Yes [id number] 10mg Take 1 [facility] mg tablet 1-02 tablet by ity o f 00:00: mouth 3 [place] 00 (three) Medical times Branch daily as needed for Pain (scale 7-10). baclofen 2021-03 Yes [id number] 10mg Take 1 [facility] mg tablet 1-02 tablet by ity o f 00:00: mouth 3 [place] 00 (three) Medical times Branch daily as needed for Pain (scale 7-10). baclofen 2021-03 Yes [id number] 10mg Take 1 [facility] mg tablet 1-02 tablet by ity o f 00:00: mouth 3 [place] 00 (three) Medical times Branch daily as needed for Pain (scale 7-10). baclofen 2021-03 Yes [id number] 10mg Take 1 [facility] mg tablet 1-02 tablet by ity o f 00:00: mouth 3 [place] 00 (three) Medical times Branch daily as needed for Pain (scale 7-10). baclofen 2021-03 Yes [id number] 10mg Take 1 [facility] mg tablet 1-02 tablet by ity o f 00:00: mouth 3 [place] 00 (three) Medical times Branch daily as needed for Pain (scale 7-10). baclofen 2021-03 Yes [id number] 10mg Take 1 [facility] mg tablet 1-02 tablet by ity o f 00:00: mouth 3 [place] 00 (three) Medical times Branch daily as needed for Pain (scale 7-10). baclofen 2021-03 Yes [id number] 10mg Take 1 [facility] mg tablet 1-02 tablet by ity o f 00:00: mouth 3 [place] 00 (three) Medical times Branch daily as needed for Pain (scale 7-10). baclofen 2021-03 Yes [id number] 10mg Take 1 [facility] mg tablet 1-02 tablet by ity o f 00:00: mouth 3 [place] 00 (three) Medical times Branch daily as needed for Pain (scale 7-10). baclofen 2021-03 Yes [id number] 10mg Take 1 [facility] mg tablet 1-02 tablet by ity o f 00:00: mouth 3 [place] 00 (three) Medical times Branch daily as needed for Pain (scale 7-10). baclofen 2021-03 Yes [id number] 10mg Take 1 [facility] mg tablet 1-02 tablet by ity o f 00:00: mouth 3 [place] 00 (three) Medical times Branch daily as needed for Pain (scale 7-10). baclofen 2021-03 Yes [id number] 10mg Take 1 [facility] mg tablet 1-02 tablet by ity o f 00:00: mouth 3 [place] 00 (three) Medical times Branch daily as needed for Pain (scale 7-10). baclofen 2021-03 Yes [id number] 10mg Take 1 [facility] mg tablet 1-02 tablet by ity o f 00:00: mouth 3 (three) Medical times Branch daily as needed for Pain (scale 7-10). baclofen 2021-03 Yes [id number] 10mg Take 1 [facility] mg tablet 1-02 tablet by ity o f 00:00: mouth 3 (three) Medical times Branch daily as needed for Pain (scale 7-10). baclofen 2021-03 Yes [id number] 10mg Take 1 [facility] mg tablet 1-02 tablet by ity o f 00:00: mouth 3 (three) Medical times Branch daily as needed for Pain (scale 7-10). baclofen 2021-03 Yes [id number] 10mg Take 1 [facility] mg tablet 1-02 tablet by ity o f 00:00: mouth 3 (three) Medical times Branch daily as needed for Pain (scale 7-10). baclofen 2021-03 Yes [id number] 10mg Take 1 [facility] mg tablet 1-02 tablet by ity o f 00:00: mouth (three) Medical times Branch daily as needed for Pain (scale 7-10). baclofen 2021-03 Yes [id number] 10mg Take 1 [facility] mg tablet 1-02 tablet by ity o f 00:00: mouth (three) Medical times Branch daily as needed for Pain (scale 7-10). baclofen 2021-03 Yes [id number] 10mg Take 1 [facility] mg tablet 1-02 tablet by ity o f 00:00: mouth 3 (three) Medical times Branch daily as needed for Pain (scale 7-10). baclofen 2021-03 Yes [id number] 10mg Take 1 [facility] mg tablet 1-02 tablet by ity o f 00:00: mouth 3 (three) Medical times Branch daily as needed for Pain (scale 7-10). baclofen 2021-03 Yes [id number] 10mg Take 1 [facility] mg tablet 1-02 tablet by ity o f 00:00: mouth 3 (three) Medical times Branch daily as needed for Pain (scale 7-10). baclofen 2021-03 Yes [id number] 10mg Take 1 [facility] mg tablet 1-02 tablet by ity o f 00:00: mouth 3 (three) Medical times Branch daily as needed for Pain (scale 7-10). baclofen 2021-03 Yes [id number] 10mg Take 1 [facility] mg tablet 1-02 tablet by ity o f 00:00: mouth 3 [place] 00 (three) Medical times Branch daily as needed for Pain (scale 7-10). baclofen 2021-03 Yes [id number] 10mg Take 1 [facility] mg tablet 1-02 tablet by ity o f 00:00: mouth 3 00 (three) Medical times Branch daily as needed for Pain (scale 7-10). baclofen 2021-03 Yes [id number] 10mg Take 1 [facility] mg tablet 1-02 tablet by ity o f 00:00: mouth 3 00 (three) Medical times Branch daily as needed for Pain (scale 7-10). baclofen 2021-03 Yes [id number] 10mg Take 1 [facility] mg tablet 1-02 tablet by ity o f 00:00: mouth 3 (three) Medical times Branch daily as needed for Pain (scale 7-10). baclofen 2021-03 Yes [id number] 10mg Take 1 [facility] mg tablet 1-02 tablet by ity o f 00:00: mouth 3 (three) Medical times Branch daily as needed for Pain (scale 7-10). baclofen 2021-03 Yes [id number] 10mg Take 1 [facility] mg tablet 1-02 tablet by ity o f 00:00: mouth 3 00 (three) Medical times Branch daily as needed for Pain (scale 7-10). baclofen 2021-03 Yes [id number] 10mg Take 1 [facility] mg tablet 1-02 tablet by ity o f 00:00: mouth 3 (three) Medical times Branch daily as needed for Pain (scale 7-10). baclofen 2021-03 Yes [id number] 10mg Take 1 [facility] mg tablet 1-02 tablet by ity o f 00:00: mouth 3 00 (three) Medical times Branch daily as needed for Pain (scale 7-10). baclofen 2021-03 Yes [id number] 10mg Take 1 [facility] mg tablet 1-02 tablet by ity o f 00:00: mouth 3 [place] 00 (three) Medical times Branch daily as needed for Pain (scale 7-10). baclofen 2021-03 Yes [id number] 10mg Take 1 [facility] mg tablet 1-02 tablet by ity o f 00:00: mouth 3 [place] 00 (three) Medical times Branch daily as needed for Pain (scale 7-10). baclofen 2021-03 Yes [id number] 10mg Take 1 [facility] mg tablet 1-02 tablet by ity o f 00:00: mouth 3 00 (three) Medical times Branch daily as needed for Pain (scale 7-10). baclofen 2021-03 Yes [id number] 10mg Take 1 [facility] mg tablet 1-02 tablet by ity o f 00:00: mouth 3 [place] (three) Medical times Branch daily as needed for Pain (scale 7-10). baclofen 2021-03 Yes [id number] 10mg Take 1 [facility] mg tablet 1-02 tablet by ity o f 00:00: mouth 3 (three) Medical times Branch daily as needed for Pain (scale 7-10). baclofen 2021-03 Yes [id number] 10mg Take 1 [facility] mg tablet 1-02 tablet by ity o f 00:00: mouth (three) Medical times Branch daily as needed for Pain (scale 7-10). baclofen 2021-03 Yes [id number] 10mg Take 1 [facility] mg tablet 1-02 tablet by ity o f 00:00: mouth 3 (three) Medical times Branch daily as needed for Pain (scale 7-10). baclofen 2021-03 Yes [id number] 10mg Take 1 [facility] mg tablet 1-02 tablet by ity o f 00:00: mouth 3 (three) Medical times Branch daily as needed for Pain (scale 7-10). baclofen 2021-03 Yes [id number] 10mg Take 1 [facility] mg tablet 1-02 tablet by ity o f 00:00: mouth 3 (three) Medical times Branch daily as needed for Pain (scale 7-10). baclofen 2021-03 Yes [id number] 10mg Take 1 [facility] mg tablet 1-02 tablet by ity o f 00:00: mouth 3 (three) Medical times Branch daily as needed for Pain (scale 7-10). baclofen 2021-03 Yes [id number] 10mg Take 1 [facility] mg tablet 1-02 tablet by ity o f 00:00: mouth 3 [place] 00 (three) Medical times Branch daily as needed for Pain (scale 7-10). baclofen 10 2021-03- No [id number] 10mg Take 1 [facility] mg tablet 03-05 tablet by ity of 00:00: 00:00 mouth 3 [place] 00 :00 (three) Medical times Branch daily as needed for Pain (scale 7-10). baclofen 10 2021-03- No [id number] 10mg Take 1 [facility] mg tablet 03-05 tablet by ity of 00:00: 00:00 mouth 3 [place] 00 :00 (three) Medical times Branch daily as needed for Pain (scale 7-10). benzonatate 2021-03- No [id number] 100mg Take 1 [facility] (TESSALON 03-05 capsule by ity of BRAD) 100 00:00: [...] s: acute pain, chronic pain albuterol Yes [id number] 2.5mg Inhale 3 [facility] 2.5 mg /3 9-29 mL every 2 ity of mL (0.083 00:00: (two) [place] %) 00 hours as Medical nebulizer needed for Bran ch solution Shortness of Breath or Wheezing. ipratropium 0 Yes [id number] .5mg Inhale 2.5 [facility] 0.02 % 9-29 mL every 4 ity of nebulizer 00:00: (four) [place] solution 00 hours as Medical needed for Branch Wheezing or Shortness of Breath. arformotero 0 Yes 15ug Use 2 mL [...] in the Branch evening. albuterol 2-0 Yes [id number] 2.5mg Inhale 3 [facility] 2.5 mg /3 9-29 mL every 2 ity of mL (0.083 00:00: (two) [place] %) 00 hours as Medical nebulizer needed for Bran ch solution Shortness of Breath or Wheezing. ipratropium 2021-0 Yes [id number] .5mg Inhale 2.5 [facility] 0.02 % 9-29 [...] in the Branch evening. albuterol 2021-0 Yes [id number] 2.5mg Inhale 3 [facility] 2.5 mg /3 9-29 mL every 2 ity of mL (0.083 00:00: (two) [place] %) 00 hours as Medical nebulizer needed for Bran ch solution Shortness of Breath or Wheezing. ipratropium 2021-0 Yes [id number] .5mg Inhale 2.5 [facility] 0.02 % 9-29 [...] in the Branch evening. albuterol 2-0 Yes [id number] 2.5mg Inhale 3 [facility] 2.5 mg /3 9-29 mL every 2 ity of mL (0.083 00:00: (two) [place] %) 00 hours as Medical nebulizer needed for Bran ch solution Shortness of Breath or Wheezing. ipratropium 2-0 Yes [id number] .5mg Inhale 2.5 [facility] 0.02 % 9-29 [...] in the Branch evening. albuterol 2-0 Yes [id number] 2.5mg Inhale 3 [facility] 2.5 mg /3 9-29 mL every 2 ity of mL (0.083 00:00: (two) [place] %) 00 hours as Medical nebulizer needed for Bran ch solution Shortness of Breath or Wheezing. ipratropium 2-0 Yes [id number] .5mg Inhale 2.5 [facility] 0.02 % 9-29 [...] in the Branch evening. albuterol 2022-0 Yes [id number] 2.5mg Inhale 3 [facility] 2.5 mg /3 9-29 mL every 2 ity of mL (0.083 00:00: (two) [place] %) 00 hours as Medical nebulizer needed for Bran ch solution Shortness of Breath or Wheezing. ipratropium 2022-0 Yes [id number] .5mg Inhale 2.5 [facility] 0.02 % 9-29 [...] in the Branch evening. albuterol 2022-0 Yes [id number] 2.5mg Inhale 3 [facility] 2.5 mg /3 9-29 mL every 2 ity of mL (0.083 00:00: (two) [place] %) 00 hours as Medical nebulizer needed for Bran ch solution Shortness of Breath or Wheezing. ipratropium 2022-0 Yes [id number] .5mg Inhale 2.5 [facility] 0.02 % 9-29 [...] in the Branch evening. albuterol 2022-0 Yes [id number] 2.5mg Inhale 3 [facility] 2.5 mg /3 9-29 mL every 2 ity of mL (0.083 00:00: (two) [place] %) 00 hours as Medical nebulizer needed for Bran ch solution Shortness of Breath or Wheezing. ipratropium 2022-0 Yes [id number] .5mg Inhale 2.5 [facility] 0.02 % 9-29 [...] in the Branch evening. albuterol 2-0 Yes [id number] 2.5mg Inhale 3 [facility] 2.5 mg /3 9-29 mL every 2 ity of mL (0.083 00:00: (two) [place] %) 00 hours as Medical nebulizer needed for Bran ch solution Shortness of Breath or Wheezing. ipratropium 2-0 Yes [id number] .5mg Inhale 2.5 [facility] 0.02 % 9-29 [...] in the Branch evening. albuterol 2022-0 Yes [id number] 2.5mg Inhale 3 [facility] 2.5 mg /3 9-29 mL every 2 ity of mL (0.083 00:00: (two) [place] %) 00 hours as Medical nebulizer needed for Bran ch solution Shortness of Breath or Wheezing. ipratropium 2022-0 Yes [id number] .5mg Inhale 2.5 [facility] 0.02 % 9-29 [...] in the Branch evening. albuterol 2022-0 Yes [id number] 2.5mg Inhale 3 [facility] 2.5 mg /3 9-29 mL every 2 ity of mL (0.083 00:00: (two) [place] %) 00 hours as Medical nebulizer needed for Bran ch solution Shortness of Breath or Wheezing. ipratropium 2-0 Yes [id number] .5mg Inhale 2.5 [facility] 0.02 % 9-29 [...] in the Branch evening. albuterol 2-0 Yes [id number] 2.5mg Inhale 3 [facility] 2.5 mg /3 9-29 mL every 2 ity of mL (0.083 00:00: (two) [place] %) 00 hours as Medical nebulizer needed for Bran ch solution Shortness of Breath or Wheezing. ipratropium 2022-0 Yes [id number] .5mg Inhale 2.5 [facility] 0.02 % 9-29 [...] in the Branch evening. albuterol 2-0 Yes [id number] 2.5mg Inhale 3 [facility] 2.5 mg /3 9-29 mL every 2 ity of mL (0.083 00:00: (two) [place] %) 00 hours as Medical nebulizer needed for Bran ch solution Shortness of Breath or Wheezing. ipratropium 2-0 Yes [id number] .5mg Inhale 2.5 [facility] 0.02 % 9-29 [...] in the Branch evening. albuterol 2-0 Yes [id number] 2.5mg Inhale 3 [facility] 2.5 mg /3 9-29 mL every 2 ity of mL (0.083 00:00: (two) [place] %) 00 hours as Medical nebulizer needed for Bran ch solution Shortness of Breath or Wheezing. ipratropium 2022-0 Yes [id number] .5mg Inhale 2.5 [facility] 0.02 % 9-29 [...] in the Branch evening. albuterol 2-0 Yes [id number] 2.5mg Inhale 3 [facility] 2.5 mg /3 9-29 mL every 2 ity of mL (0.083 00:00: (two) [place] %) 00 hours as Medical nebulizer needed for Bran ch solution Shortness of Breath or Wheezing. ipratropium 2-0 Yes [id number] .5mg Inhale 2.5 [facility] 0.02 % 9-29 [...] in the Branch evening. albuterol 2-0 Yes [id number] 2.5mg Inhale 3 [facility] 2.5 mg /3 9-29 mL every 2 ity of mL (0.083 00:00: (two) [place] %) 00 hours as Medical nebulizer needed for Bran ch solution Shortness of Breath or Wheezing. ipratropium 2-0 Yes [id number] .5mg Inhale 2.5 [facility] 0.02 % 9-29 [...] in the Branch evening. albuterol 2-0 Yes [id number] 2.5mg Inhale 3 [facility] 2.5 mg /3 9-29 mL every 2 ity of mL (0.083 00:00: (two) [place] %) 00 hours as Medical nebulizer needed for Bran ch solution Shortness of Breath or Wheezing. ipratropium 2-0 Yes [id number] .5mg Inhale 2.5 [facility] 0.02 % 9-29 [...] in the Branch evening. albuterol 2021-0 Yes [id number] 2.5mg Inhale 3 [facility] 2.5 mg /3 9-29 mL every 2 ity of mL (0.083 00:00: (two) [place] %) 00 hours as Medical nebulizer needed for Bran ch solution Shortness of Breath or Wheezing. ipratropium 2021-0 Yes [id number] .5mg Inhale 2.5 [facility] 0.02 % 9-29 [...] in the Branch evening. albuterol 2022-0 Yes [id number] 2.5mg Inhale 3 [facility] 2.5 mg /3 9-29 mL every 2 ity of mL (0.083 00:00: (two) [place] %) 00 hours as Medical nebulizer needed for Bran ch solution Shortness of Breath or Wheezing. ipratropium 2022-0 Yes [id number] .5mg Inhale 2.5 [facility] 0.02 % 9-29 [...] in the Branch evening. albuterol 2022-0 Yes [id number] 2.5mg Inhale 3 [facility] 2.5 mg /3 9-29 mL every 2 ity of mL (0.083 00:00: (two) [place] %) 00 hours as Medical nebulizer needed for Bran ch solution Shortness of Breath or Wheezing. ipratropium 2022-0 Yes [id number] .5mg Inhale 2.5 [facility] 0.02 % 9-29 [...] in the Branch evening. albuterol 2022-0 Yes [id number] 2.5mg Inhale 3 [facility] 2.5 mg /3 9-29 mL every 2 ity of mL (0.083 00:00: (two) [place] %) 00 hours as Medical nebulizer needed for Bran ch solution Shortness of Breath or Wheezing. ipratropium 2022-0 Yes [id number] .5mg Inhale 2.5 [facility] 0.02 % 9-29 [...] in the Branch evening. albuterol 2022-0 Yes [id number] 2.5mg Inhale 3 [facility] 2.5 mg /3 9-29 mL every 2 ity of mL (0.083 00:00: (two) [place] %) 00 hours as Medical nebulizer needed for Bran ch solution Shortness of Breath or Wheezing. ipratropium 2022-0 Yes [id number] .5mg Inhale 2.5 [facility] 0.02 % 9-29 [...] in the Branch evening. albuterol 2022-0 Yes [id number] 2.5mg Inhale 3 [facility] 2.5 mg /3 9-29 mL every 2 ity of mL (0.083 00:00: (two) [place] %) 00 hours as Medical nebulizer needed for Bran ch solution Shortness of Breath or Wheezing. ipratropium 2022-0 Yes [id number] .5mg Inhale 2.5 [facility] 0.02 % 9-29 [...] in the Branch evening. albuterol 2-0 Yes [id number] 2.5mg Inhale 3 [facility] 2.5 mg /3 9-29 mL every 2 ity of mL (0.083 00:00: (two) [place] %) 00 hours as Medical nebulizer needed for Bran ch solution Shortness of Breath or Wheezing. ipratropium 2-0 Yes [id number] .5mg Inhale 2.5 [facility] 0.02 % 9-29 [...] in the Branch evening. albuterol 2022-0 Yes [id number] 2.5mg Inhale 3 [facility] 2.5 mg /3 9-29 mL every 2 ity of mL (0.083 00:00: (two) [place] %) 00 hours as Medical nebulizer needed for Bran ch solution Shortness of Breath or Wheezing. ipratropium 2022-0 Yes [id number] .5mg Inhale 2.5 [facility] 0.02 % 9-29 [...] in the Branch evening. albuterol 2022-0 Yes [id number] 2.5mg Inhale 3 [facility] 2.5 mg /3 9-29 mL every 2 ity of mL (0.083 00:00: (two) [place] %) 00 hours as Medical nebulizer needed for Bran ch solution Shortness of Breath or Wheezing. ipratropium 2-0 Yes [id number] .5mg Inhale 2.5 [facility] 0.02 % 9-29 [...] in the Branch evening. albuterol 2-0 Yes [id number] 2.5mg Inhale 3 [facility] 2.5 mg /3 9-29 mL every 2 ity of mL (0.083 00:00: (two) [place] %) 00 hours as Medical nebulizer needed for [facility] solution Shortness of Breath or Wheezing. ipratropium 2022-0 Yes [id number] .5mg Inhale 2.5 [facility] 0.02 % 9-29 [...] in the Branch evening. albuterol 2-0 Yes [id number] 2.5mg Inhale 3 [facility] 2.5 mg /3 9-29 mL every 2 ity of mL (0.083 00:00: (two) [place] %) 00 hours as Medical nebulizer needed for Bran ch solution Shortness of Breath or Wheezing. ipratropium 2-0 Yes [id number] .5mg Inhale 2.5 [facility] 0.02 % 9-29 [...] in the Branch evening. albuterol 2-0 Yes [id number] 2.5mg Inhale 3 [facility] 2.5 mg /3 9-29 mL every 2 ity of mL (0.083 00:00: (two) [place] %) 00 hours as Medical nebulizer needed for Bran ch solution Shortness of Breath or Wheezing. ipratropium 2022-0 Yes [id number] .5mg Inhale 2.5 [facility] 0.02 % 9-29 [...] in the Branch evening. albuterol 2021-0 Yes [id number] 2.5mg Inhale 3 [facility] 2.5 mg /3 9-29 mL every 2 ity of mL (0.083 00:00: (two) [place] %) 00 hours as Medical nebulizer needed for Bran ch solution Shortness of Breath or Wheezing. ipratropium 2021-0 Yes [id number] .5mg Inhale 2.5 [facility] 0.02 % 9-29 mL every 4 ity of nebulizer 00:00: (four) [place] solution 00 hours as Medical needed for Branch Wheezing or Shortness of Breath. arformotero 2021-0 Yes 15ug Use 2 mL Un renetta L 15 mcg/2 11-30 as ity of mL 00:00: directed [place] nebulizer 00 in the Medical solution morning Branch and 2 mL in the evening. budesonide 2021-0 Yes .25mg Inhale 2 Un renetta 0.25 mg/2 9-29 mL in the ity o f mL 00:00: morning [place] nebulizer 00 and 2 mL Medica l solution in the Branch evening. albuterol 2021-0 3- No [id number] 2.5mg Inhale 3 [facility] 2.5 mg /3 11-30 01-05 mL every 2 ity of mL (0.083 00:00: 00:00 (two) [place] %) 00 :00 hours as Medical nebulizer needed for Bran ch solution Shortness of Breath or Wheezing. ipratropium 2021-0 3- No [id number] .5mg Inhale 2.5 [facility] 0.02 % 11-30 01-05 mL every 4 ity of nebulizer 00:00: 00:00 (four) [place] solution 00 :00 hours as Medical needed for Branch Wheezing or Shortness of Breath. arformotero 2021-0 3- No 15ug Use 2 mL U nivers L 15 mcg/2 11-30 01-05 as ity of mL 00:00: 00:00 directed [place] nebulizer 00 :00 in the Medical solution morning Branch and 2 mL in the evening. budesonide 2022- No .25mg Inhale 2 U nivers 0.25 mg/2 11-30-05 mL in the ity of mL 00:00: 00:00 morning [place] nebulizer 00 :00 and 2 mL Medica l solution in the Branch evening. albuterol 2022- No [id number] 2.5mg Inhale 3 [facility] 2.5 mg /3 11-30-05 mL every 2 ity of mL (0.083 00:00: 00:00 (two) [place] %) 00 :00 hours as Medical nebulizer needed for Bran ch solution Shortness of Breath or Wheezing. ipratropium 2021-0 2022- No [id number] .5mg Inhale 2.5 [facility] 0.02 % 11-30-05 mL every 4 ity of nebulizer 00:00: 00:00 (four) [place] solution 00 :00 hours as Medical needed for Branch Wheezing or Shortness of Breath. arformotero 2022- No 15ug Use 2 mL U nivers L 15 mcg/2 11-30 as ity of mL 00:00: 00:00 directed [place] nebulizer 00 :00 in the Medical solution morning Branch and 2 mL in the evening. budesonide 2021-2022- No .25mg Inhale 2 U nivers 0.25 mg/2 11-30-05 mL in the ity of mL 00:00: 00:00 morning [place] nebulizer 00 :00 and 2 mL Medica l solution in the Branch evening. albuterol 2022- No [id number] 2.5mg Inhale 3 [facility] 2.5 mg /3 11-30-05 mL every 2 ity of mL (0.083 00:00: 00:00 (two) [place] %) 00 :00 hours as Medical nebulizer needed for Bran ch solution Shortness of Breath or Wheezing. ipratropium 2021-0 2022- No [id number] .5mg Inhale 2.5 [facility] 0.02 % 11-30-05 mL every 4 ity of nebulizer 00:00: 00:00 (four) [place] solution 00 :00 hours as Medical needed for Branch Wheezing or Shortness of Breath. arformotero 2022-0 2023- No 15ug Use 2 mL U nivers L 15 mcg/2 11-30 as ity of mL 00:00: 00:00 directed [place] nebulizer 00 :00 in the Medical solution morning Branch and 2 mL in the evening. budesonide 2022- No .25mg Inhale 2 U nivers 0.25 mg/2 11-30-05 mL in the ity of mL 00:00: 00:00 morning [place] nebulizer 00 :00 and 2 mL Medica l solution in the Branch evening. albuterol 2022- No [id number] 2.5mg Inhale 3 [facility] 2.5 mg /3 11-30-05 mL every 2 ity of mL (0.083 00:00: 00:00 (two) [place] %) 00 :00 hours as Medical nebulizer needed for Bran ch solution Shortness of Breath or Wheezing. ipratropium 2022- No [id number] .5mg Inhale 2.5 [facility] 0.02 % 11-30-05 mL every 4 ity of nebulizer 00:00: 00:00 (four) [place] solution 00 :00 hours as Medical needed for Branch Wheezing or Shortness of Breath. arformotero 2022- No 15ug Use 2 mL U nivers L 15 mcg/2 11-30 as ity of mL 00:00: 00:00 directed [place] nebulizer 00 :00 in the Medical solution morning Branch and 2 mL in the evening. budesonide 2022- No .25mg Inhale 2 U nivers 0.25 mg/2 11-30-05 mL in the ity of mL 00:00: 00:00 morning [place] nebulizer 00 :00 and 2 mL Medica l solution in the Branch evening. Desoximetas 2021- Yes [id number] Apply to [facility] one 0.25 % 9-27 area(s) 2 ity of ointment 00:00: (two) [place] 00 times Medical daily. Branch Desoximetas 2021- Yes [id number] Apply to [facility] one 0.25 % 9-27 area(s) 2 ity of ointment 00:00: (two) [place] 00 times Medical daily. Branch Desoximetas 2022-0 Yes [id number] Apply to [facility] one 0.25 % 9-27 area(s) 2 ity of ointment 00:00: (two) [place] 00 times Medical daily. Branch Desoximetas 2022-0 Yes [id number] Apply to [facility] one 0.25 % 9-27 area(s) 2 ity of ointment 00:00: (two) [place] 00 times Medical daily. Branch Desoximetas 2022-0 Yes [id number] Apply to [facility] one 0.25 % 9-27 area(s) 2 ity of ointment 00:00: (two) [place] 00 times Medical daily. Branch Desoximetas 2022-0 Yes [id number] Apply to [facility] one 0.25 % 9-27 area(s) 2 ity of ointment 00:00: (two) [place] 00 times Medical daily. Branch Desoximetas 2022-0 Yes [id number] Apply to [facility] one 0.25 % 9-27 area(s) 2 ity of ointment 00:00: (two) [place] 00 times Medical daily. Branch Desoximetas 2022-0 Yes [id number] Apply to [facility] one 0.25 % 9-27 area(s) 2 ity of ointment 00:00: (two) [place] 00 times Medical daily. Branch Desoximetas 2022-0 Yes [id number] Apply to [facility] one 0.25 % 9-27 area(s) 2 ity of ointment 00:00: (two) [place] 00 times Medical daily. Branch Desoximetas 2022-0 Yes [id number] Apply to [facility] one 0.25 % 9-27 area(s) 2 ity of ointment 00:00: (two) [place] 00 times Medical daily. Branch Desoximetas 2022-0 Yes [id number] Apply to [facility] one 0.25 % 9-27 area(s) 2 ity of ointment 00:00: (two) [place] 00 times Medical daily. Branch Desoximetas 2022-0 Yes [id number] Apply to [facility] one 0.25 % 9-27 area(s) 2 ity of ointment 00:00: (two) [place] 00 times Medical daily. Branch Desoximetas 2022-0 Yes [id number] Apply to [facility] one 0.25 % 9-27 area(s) 2 ity of ointment 00:00: (two) [place] 00 times Medical daily. Branch Desoximetas 2022-0 Yes [id number] Apply to [facility] one 0.25 % 9-27 area(s) 2 ity of ointment 00:00: (two) [place] 00 times Medical daily. Branch Desoximetas 2022-0 Yes [id number] Apply to [facility] one 0.25 % 9-27 area(s) 2 ity of ointment 00:00: (two) [place] 00 times Medical daily. Branch Desoximetas 2022-0 Yes [id number] Apply to [facility] one 0.25 % 9-27 area(s) 2 ity of ointment 00:00: (two) [place] 00 times Medical daily. Branch Desoximetas 2022-0 Yes [id number] Apply to [facility] one 0.25 % 9-27 area(s) 2 ity of ointment 00:00: (two) [place] 00 times Medical daily. Branch Desoximetas 2022-0 Yes [id number] Apply to [facility] one 0.25 % 9-27 area(s) 2 ity of ointment 00:00: (two) [place] 00 times Medical daily. Branch Desoximetas 2022-0 Yes [id number] Apply to [facility] one 0.25 % 9-27 area(s) 2 ity of ointment 00:00: (two) [place] 00 times Medical daily. Branch Desoximetas 2022-0 Yes [id number] Apply to [facility] one 0.25 % 9-27 area(s) 2 ity of ointment 00:00: (two) [place] 00 times Medical daily. Branch Desoximetas 2022-0 Yes [id number] Apply to [facility] one 0.25 % 9-27 area(s) 2 ity of ointment 00:00: (two) [place] 00 times Medical daily. Branch Desoximetas 2022-0 Yes [id number] Apply to [facility] one 0.25 % 9-27 area(s) 2 ity of ointment 00:00: (two) [place] 00 times Medical daily. Branch Desoximetas 2022-0 Yes [id number] Apply to [facility] one 0.25 % 9-27 area(s) 2 ity of ointment 00:00: (two) [place] 00 times Medical daily. Branch Desoximetas 2022-0 Yes [id number] Apply to [facility] one 0.25 % 9-27 area(s) 2 ity of ointment 00:00: (two) [place] 00 times Medical daily. Branch Desoximetas 2022-0 Yes [id number] Apply to [facility] one 0.25 % 9-27 area(s) 2 ity of ointment 00:00: (two) [place] 00 times Medical daily. Branch Desoximetas 2022-0 Yes [id number] Apply to [facility] one 0.25 % 9-27 area(s) 2 ity of ointment 00:00: (two) [place] 00 times Medical daily. Branch Desoximetas 2022-0 Yes [id number] Apply to [facility] one 0.25 % 9-27 area(s) 2 ity of ointment 00:00: (two) [place] 00 times Medical daily. Branch Desoximetas 2022-0 Yes [id number] Apply to [facility] one 0.25 % 9-27 area(s) 2 ity of ointment 00:00: (two) [place] 00 times Medical daily. Branch Desoximetas 2022-0 Yes [id number] Apply to [facility] one 0.25 % 9-27 area(s) 2 ity of ointment 00:00: (two) [place] 00 times Medical daily. Branch Desoximetas 2022-0 Yes [id number] Apply to [facility] one 0.25 % 9-27 area(s) 2 ity of ointment 00:00: (two) [place] 00 times Medical daily. Branch Desoximetas 2022-0 Yes [id number] Apply to [facility] one 0.25 % 9-27 area(s) 2 ity of ointment 00:00: (two) [place] 00 times Medical daily. Branch Desoximetas 2022-0 Yes [id number] Apply to [facility] one 0.25 % 9-27 area(s) 2 ity of ointment 00:00: (two) [place] 00 times Medical daily. Branch Desoximetas 2022-0 Yes [id number] Apply to [facility] one 0.25 % 9-27 area(s) 2 ity of ointment 00:00: (two) [place] 00 times Medical daily. Branch Desoximetas 2022-0 Yes [id number] Apply to [facility] one 0.25 % 9-27 area(s) 2 ity of ointment 00:00: (two) [place] 00 times Medical daily. Branch Desoximetas 2022-0 Yes [id number] Apply to [facility] one 0.25 % 9-27 area(s) 2 ity of ointment 00:00: (two) [place] 00 times Medical daily. Branch Desoximetas 2022-0 Yes [id number] Apply to [facility] one 0.25 % 9-27 area(s) 2 ity of ointment 00:00: (two) [place] 00 times Medical daily. Branch Desoximetas 2022-0 Yes [id number] Apply to [facility] one 0.25 % 9-27 area(s) 2 ity of ointment 00:00: (two) [place] 00 times Medical daily. Branch Desoximetas 2022-0 Yes [id number] Apply to [facility] one 0.25 % 9-27 area(s) 2 ity of ointment 00:00: (two) [place] 00 times Medical daily. Branch Desoximetas 2022-0 Yes [id number] Apply to [facility] one 0.25 % 9-27 area(s) 2 ity of ointment 00:00: (two) [place] 00 times Medical daily. Branch Desoximetas 2022-0 Yes [id number] Apply to [facility] one 0.25 % 9-27 area(s) 2 ity of ointment 00:00: (two) [place] 00 times Medical daily. Branch Desoximetas 2022-0 Yes [id number] Apply to [facility] one 0.25 % 9-27 area(s) 2 ity of ointment 00:00: (two) [place] 00 times Medical daily. Branch Desoximetas 2022-0 Yes [id number] Apply to [facility] one 0.25 % 9-27 area(s) 2 ity of ointment 00:00: (two) [place] 00 times Medical daily. Branch Desoximetas 2022-0 Yes [id number] Apply to [facility] one 0.25 % 9-27 area(s) 2 ity of ointment 00:00: (two) [place] 00 times Medical daily. Branch Desoximetas 2022-0 Yes [id number] Apply to [facility] one 0.25 % 9-27 area(s) 2 ity of ointment 00:00: (two) [place] 00 times Medical daily. Branch Desoximetas 2022-0 Yes [id number] Apply to [facility] one 0.25 % 9-27 area(s) 2 ity of ointment 00:00: (two) [place] 00 times Medical daily. Branch Desoximetas 2022-0 Yes [id number] Apply to [facility] one 0.25 % 9-27 area(s) 2 ity of ointment 00:00: (two) [place] 00 times Medical daily. Branch Desoximetas 2022-0 Yes [id number] Apply to [facility] one 0.25 % 9-27 area(s) 2 ity of ointment 00:00: (two) [place] 00 times Medical daily. Branch Desoximetas 2022-0 Yes [id number] Apply to [facility] one 0.25 % 9-27 area(s) 2 ity of ointment 00:00: (two) [place] 00 times Medical daily. Branch Desoximetas 2022-0 Yes [id number] Apply to [facility] one 0.25 % 9-27 area(s) 2 ity of ointment 00:00: (two) [place] 00 times Medical daily. Branch Desoximetas 2022-0 Yes [id number] Apply to [facility] one 0.25 % 9-27 area(s) 2 ity of ointment 00:00: (two) [place] 00 times Medical daily. Branch Desoximetas 2022-0 Yes [id number] Apply to [facility] one 0.25 % 9-27 area(s) 2 ity of ointment 00:00: (two) [place] 00 times Medical daily. Branch Desoximetas 2022-0 Yes [id number] Apply to [facility] one 0.25 % 9-27 area(s) 2 ity of ointment 00:00: (two) [place] 00 times Medical daily. Branch Desoximetas 2022-0 Yes [id number] Apply to [facility] one 0.25 % 9-27 area(s) 2 ity of ointment 00:00: (two) [place] 00 times Medical daily. Branch Desoximetas 2022-0 Yes [id number] Apply to [facility] one 0.25 % 9-27 area(s) 2 ity of ointment 00:00: (two) [place] 00 times Medical daily. Branch Desoximetas 2022-0 Yes [id number] Apply to [facility] one 0.25 % 9-27 area(s) 2 ity of ointment 00:00: (two) [place] 00 times Medical daily. Branch Desoximetas 2022-0 Yes [id number] Apply to [facility] one 0.25 % 9-27 area(s) 2 ity of ointment 00:00: (two) [place] 00 times Medical daily. Branch Desoximetas 2022-0 Yes [id number] Apply to [facility] one 0.25 % 9-27 area(s) 2 ity of ointment 00:00: (two) [place] 00 times Medical daily. Branch Desoximetas 2022-0 Yes [id number] Apply to [facility] one 0.25 % 9-27 area(s) 2 ity of ointment 00:00: (two) [place] 00 times Medical daily. Branch Desoximetas 2022-0 Yes [id number] Apply to [facility] one 0.25 % 9-27 area(s) 2 ity of ointment 00:00: (two) [place] 00 times Medical daily. Branch Desoximetas 2022-0 Yes [id number] Apply to [facility] one 0.25 % 9-27 area(s) 2 ity of ointment 00:00: (two) [place] 00 times Medical daily. Branch Desoximetas 2022-0 Yes [id number] Apply to [facility] one 0.25 % 9-27 area(s) 2 ity of ointment 00:00: (two) [place] 00 times Medical daily. Branch Desoximetas 2022-0 Yes [id number] Apply to [facility] one 0.25 % 9-27 area(s) 2 ity of ointment 00:00: (two) [place] 00 times Medical daily. Branch Desoximetas 2022-0 Yes [id number] Apply to [facility] one 0.25 % 9-27 area(s) 2 ity of ointment 00:00: (two) [place] 00 times Medical daily. Branch Desoximetas 2022-0 Yes [id number] Apply to [facility] one 0.25 % 9-27 area(s) 2 ity of ointment 00:00: (two) [place] 00 times Medical daily. Branch Desoximetas 2022-0 Yes [id number] Apply to [facility] one 0.25 % 9-27 area(s) 2 ity of ointment 00:00: (two) [place] 00 times Medical daily. Branch Desoximetas 2022-0 Yes [id number] Apply to [facility] one 0.25 % 9-27 area(s) 2 ity of ointment 00:00: (two) [place] 00 times Medical daily. Branch Desoximetas 2-0 Yes [id number] Apply to [facility] one 0.25 % 9-27 area(s) 2 ity of ointment 00:00: (two) [place] 00 times Medical daily. Branch Desoximetas 2022-0 2023- No [id number] Apply to [facility] one 0.25 % 9-27 07-18 area(s) 2 ity of ointment 00:00: 00:00 (two) [place] 00 :00 times Medical daily. Branch Desoximetas 2022-0 2023- No [id number] Apply to [facility] one 0.25 % 9-27 07-18 area(s) 2 ity of ointment 00:00: 00:00 (two) [place] 00 :00 times Medical daily. Branch hydrOXYzine 2021-0 Yes [id number] 25mg Take 1 [facility] 25 mg 9-12 capsule by ity of capsule 00:00: mouth 3 00 (three) Medical times Branch daily as needed for Itching. allopurinoL 2021-0 Yes [id number] 50mg Take 0.5 [facility] 100 mg 9-12 tablets by ity of tablet 00:00: mouth [place] 00 every Medical other day. Branch hydrOXYzine 2021-0 Yes [id number] 25mg Take 1 [facility] 25 mg 9-12 capsule by ity of capsule 00:00: mouth 3 00 (three) Medical times Branch daily as needed for Itching. allopurinoL 2022-0 Yes [id number] 50mg Take 0.5 [facility] 100 mg 9-12 tablets by ity of tablet 00:00: mouth 00 every Medical other day. Branch hydrOXYzine 2022-0 Yes [id number] 25mg Take 1 [facility] 25 mg 9-12 capsule by ity of capsule 00:00: mouth (three) Medical times Branch daily as needed for Itching. allopurinoL 2022-0 Yes [id number] 50mg Take 0.5 [facility] 100 mg 9-12 tablets by ity of tablet 00:00: mouth 00 every Medical other day. Branch hydrOXYzine 2-0 Yes [id number] 25mg Take 1 [facility] 25 mg 9-12 capsule by ity of capsule 00:00: mouth (three) Medical times Branch daily as needed for Itching. allopurinoL 2022-0 Yes [id number] 50mg Take 0.5 [facility] 100 mg 9-12 tablets by ity of tablet 00:00: mouth every Medical other day. Branch hydrOXYzine 2-0 Yes [id number] 25mg Take 1 [facility] 25 mg 9-12 capsule by ity of capsule 00:00: mouth (three) Medical times Branch daily as needed for Itching. allopurinoL 2022-0 Yes [id number] 50mg Take 0.5 [facility] 100 mg 9-12 tablets by ity of tablet 00:00: mouth 00 every Medical other day. Branch hydrOXYzine 2022-0 Yes [id number] 25mg Take 1 [facility] 25 mg 9-12 capsule by ity of capsule 00:00: mouth (three) Medical times Branch daily as needed for Itching. allopurinoL 2022-0 Yes [id number] 50mg Take 0.5 [facility] 100 mg 9-12 tablets by ity of tablet 00:00: mouth 00 every Medical other day. Branch hydrOXYzine 2022-0 Yes [id number] 25mg Take 1 [facility] 25 mg 9-12 capsule by ity of capsule 00:00: mouth (three) Medical times Branch daily as needed for Itching. allopurinoL 2022-0 Yes [id number] 50mg Take 0.5 [facility] 100 mg 9-12 tablets by ity of tablet 00:00: mouth [place] 00 every Medical other day. Branch hydrOXYzine 2022-0 Yes [id number] 25mg Take 1 [facility] 25 mg 9-12 capsule by ity of capsule 00:00: mouth (three) Medical times Branch daily as needed for Itching. allopurinoL 2022-0 Yes [id number] 50mg Take 0.5 [facility] 100 mg 9-12 tablets by ity of tablet 00:00: mouth 00 every Medical other day. Branch hydrOXYzine 2022-0 Yes [id number] 25mg Take 1 [facility] 25 mg 9-12 capsule by ity of capsule 00:00: mouth (three) Medical times Branch daily as needed for Itching. allopurinoL 2022-0 Yes [id number] 50mg Take 0.5 [facility] 100 mg 9-12 tablets by ity of tablet 00:00: mouth every Medical other day. Branch hydrOXYzine 2021-0 Yes [id number] 25mg Take 1 [facility] 25 mg 9-12 capsule by ity of capsule 00:00: mouth (three) Medical times Branch daily as needed for Itching. allopurinoL 2-0 Yes [id number] 50mg Take 0.5 [facility] 100 mg 9-12 tablets by ity of tablet 00:00: mouth 00 every Medical other day. Branch hydrOXYzine 2-0 Yes [id number] 25mg Take 1 [facility] 25 mg 9-12 capsule by ity of capsule 00:00: mouth (three) Medical times Branch daily as needed for Itching. allopurinoL 2-0 Yes [id number] 50mg Take 0.5 [facility] 100 mg 9-12 tablets by ity of tablet 00:00: mouth 00 every Medical other day. Branch hydrOXYzine 2-0 Yes [id number] 25mg Take 1 [facility] 25 mg 9-12 capsule by ity of capsule 00:00: mouth (three) Medical times Branch daily as needed for Itching. allopurinoL 2022-0 Yes [id number] 50mg Take 0.5 [facility] 100 mg 9-12 tablets by ity of tablet 00:00: mouth 00 every Medical other day. Branch hydrOXYzine 2022-0 Yes [id number] 25mg Take 1 [facility] 25 mg 9-12 capsule by ity of capsule 00:00: mouth (three) Medical times Branch daily as needed for Itching. allopurinoL 2022-0 Yes [id number] 50mg Take 0.5 [facility] 100 mg 9-12 tablets by ity of tablet 00:00: mouth [place] 00 every Medical other day. Branch hydrOXYzine 2021-0 Yes [id number] 25mg Take 1 [facility] 25 mg 9-12 capsule by ity of capsule 00:00: mouth 3 (three) Medical times Branch daily as needed for Itching. allopurinoL 2021-0 Yes [id number] 50mg Take 0.5 [facility] 100 mg 9-12 tablets by ity of tablet 00:00: mouth [place] 00 every Medical other day. Branch hydrOXYzine 2021-0 Yes [id number] 25mg Take 1 [facility] 25 mg 9-12 capsule by ity of capsule 00:00: mouth (three) Medical times Branch daily as needed for Itching. allopurinoL 2021-0 Yes [id number] 50mg Take 0.5 [facility] 100 mg 9-12 tablets by ity of tablet 00:00: mouth [place] 00 every Medical other day. Branch hydrOXYzine 2021-0 Yes [id number] 25mg Take 1 [facility] 25 mg 9-12 capsule by ity of capsule 00:00: mouth (three) Medical times Branch daily as needed for Itching. allopurinoL 2021-0 Yes [id number] 50mg Take 0.5 [facility] 100 mg 9-12 tablets by ity of tablet 00:00: mouth [place] 00 every Medical other day. Branch hydrOXYzine 2021-0 Yes [id number] 25mg Take 1 [facility] 25 mg 9-12 capsule by ity of capsule 00:00: mouth (three) Medical times Branch daily as needed for Itching. allopurinoL 2-0 Yes [id number] 50mg Take 0.5 [facility] 100 mg 9-12 tablets by ity of tablet 00:00: mouth [place] 00 every Medical other day. Branch hydrOXYzine 2021-0 Yes [id number] 25mg Take 1 [facility] 25 mg 9-12 capsule by ity of capsule 00:00: mouth 3 (three) Medical times Branch daily as needed for Itching. allopurinoL 2-0 Yes [id number] 50mg Take 0.5 [facility] 100 mg 9-12 tablets by ity of tablet 00:00: mouth [place] 00 every Medical other day. Branch hydrOXYzine 2022-0 Yes [id number] 25mg Take 1 [facility] 25 mg 9-12 capsule by ity of capsule 00:00: mouth 3 (three) Medical times Branch daily as needed for Itching. allopurinoL 2021-0 Yes [id number] 50mg Take 0.5 [facility] 100 mg 9-12 tablets by ity of tablet 00:00: mouth [place] 00 every Medical other day. Branch hydrOXYzine 2021-0 Yes [id number] 25mg Take 1 [facility] 25 mg 9-12 capsule by ity of capsule 00:00: mouth 3 (three) Medical times Branch daily as needed for Itching. allopurinoL 2021-0 Yes [id number] 50mg Take 0.5 [facility] 100 mg 9-12 tablets by ity of tablet 00:00: mouth 00 every Medical other day. Branch hydrOXYzine 2021-0 Yes [id number] 25mg Take 1 [facility] 25 mg 9-12 capsule by ity of capsule 00:00: mouth (three) Medical times Branch daily as needed for Itching. allopurinoL 2021-0 Yes [id number] 50mg Take 0.5 [facility] 100 mg 9-12 tablets by ity of tablet 00:00: mouth [place] 00 every Medical other day. Branch hydrOXYzine 2021-0 Yes [id number] 25mg Take 1 [facility] 25 mg 9-12 capsule by ity of capsule 00:00: mouth (three) Medical times Branch daily as needed for Itching. allopurinoL 2021-0 Yes [id number] 50mg Take 0.5 [facility] 100 mg 9-12 tablets by ity of tablet 00:00: mouth [place] 00 every Medical other day. Branch hydrOXYzine 2021-0 Yes [id number] 25mg Take 1 [facility] 25 mg 9-12 capsule by ity of capsule 00:00: mouth 3 (three) Medical times Branch daily as needed for Itching. allopurinoL 2021-0 Yes [id number] 50mg Take 0.5 [facility] 100 mg 9-12 tablets by ity of tablet 00:00: mouth [place] 00 every Medical other day. Branch hydrOXYzine 2021-0 Yes [id number] 25mg Take 1 [facility] 25 mg 9-12 capsule by ity of capsule 00:00: mouth 3 (three) Medical times Branch daily as needed for Itching. allopurinoL 2-0 Yes [id number] 50mg Take 0.5 [facility] 100 mg 9-12 tablets by ity of tablet 00:00: mouth [place] 00 every Medical other day. Branch hydrOXYzine 2021-0 Yes [id number] 25mg Take 1 [facility] 25 mg 9-12 capsule by ity of capsule 00:00: mouth 3 (three) Medical times Branch daily as needed for Itching. allopurinoL 2021-0 Yes [id number] 50mg Take 0.5 [facility] 100 mg 9-12 tablets by ity of tablet 00:00: mouth [place] 00 every Medical other day. Branch hydrOXYzine 2021-0 Yes [id number] 25mg Take 1 [facility] 25 mg 9-12 capsule by ity of capsule 00:00: mouth (three) Medical times Branch daily as needed for Itching. allopurinoL 2021-0 Yes [id number] 50mg Take 0.5 [facility] 100 mg 9-12 tablets by ity of tablet 00:00: mouth [place] 00 every Medical other day. Branch hydrOXYzine 2021-0 Yes [id number] 25mg Take 1 [facility] 25 mg 9-12 capsule by ity of capsule 00:00: mouth (three) Medical times Branch daily as needed for Itching. allopurinoL 2021-0 Yes [id number] 50mg Take 0.5 [facility] 100 mg 9-12 tablets by ity of tablet 00:00: mouth [place] 00 every Medical other day. Branch hydrOXYzine 2021-0 Yes [id number] 25mg Take 1 [facility] 25 mg 9-12 capsule by ity of capsule 00:00: mouth (three) Medical times Branch daily as needed for Itching. allopurinoL 2021-0 Yes [id number] 50mg Take 0.5 [facility] 100 mg 9-12 tablets by ity of tablet 00:00: mouth [place] 00 every Medical other day. Branch hydrOXYzine 2021-0 Yes [id number] 25mg Take 1 [facility] 25 mg 9-12 capsule by ity of capsule 00:00: mouth 3 (three) Medical times Branch daily as needed for Itching. allopurinoL 2-0 Yes [id number] 50mg Take 0.5 [facility] 100 mg 9-12 tablets by ity of tablet 00:00: mouth [place] 00 every Medical other day. Branch hydrOXYzine 2021-0 Yes [id number] 25mg Take 1 [facility] 25 mg 9-12 capsule by ity of capsule 00:00: mouth 3 (three) Medical times Branch daily as needed for Itching. allopurinoL 2-0 Yes [id number] 50mg Take 0.5 [facility] 100 mg 9-12 tablets by ity of tablet 00:00: mouth [place] 00 every Medical other day. Branch hydrOXYzine 2-0 Yes [id number] 25mg Take 1 [facility] 25 mg 9-12 capsule by [facility] of capsule 00:00: mouth 3 (three) Medical times Branch daily as needed for Itching. allopurinoL 2021-0 Yes [id number] 50mg Take 0.5 [facility] 100 mg 9-12 tablets by ity of tablet 00:00: mouth [place] 00 every Medical other day. Branch hydrOXYzine 2021-0 Yes [id number] 25mg Take 1 [facility] 25 mg 9-12 capsule by [facility]y of capsule 00:00: mouth 3 (three) Medical times [place] daily as needed for Itching. allopurinoL 2021-0 Yes [id number] 50mg Take 0.5 [facility] 100 mg 9-12 tablets by ity of tablet 00:00: mouth [place] 00 every Medical other day. Branch hydrOXYzine 2021-0 Yes [id number] 25mg Take 1 [facility] 25 mg 9-12 capsule by ity of capsule 00:00: mouth 3 (three) Medical times [place] daily as needed for Itching. allopurinoL 2021-0 Yes [id number] 50mg Take 0.5 [facility] 100 mg 9-12 tablets by ity of tablet 00:00: mouth [place] 00 every Medical other day. Branch allopurinoL 2021-0 Yes [id number] 50mg Take 0.5 [facility] 100 mg 9-12 tablets by ity of tablet 00:00: mouth [place] 00 every Medical other day. Branch allopurinoL 2-0 Yes [id number] 50mg Take 0.5 [facility] 100 mg 9-12 tablets by ity of tablet 00:00: mouth [place] 00 every Medical other day. Branch allopurinoL 2-0 Yes [id number] 50mg Take 0.5 [facility] 100 mg 9-12 tablets by ity of tablet 00:00: mouth [place] 00 every Medical other day. Branch allopurinoL 2-0 Yes [id number] 50mg Take 0.5 [facility] 100 mg 9-12 tablets by ity of tablet 00:00: mouth [place] 00 every Medical other day. Branch allopurinoL 2021-0 Yes [id number] 50mg Take 0.5 [facility] 100 mg 9-12 tablets by ity of tablet 00:00: mouth [place] 00 every Medical other day. Branch allopurinoL 2021-0 Yes [id number] 50mg Take 0.5 [facility] 100 mg 9-12 tablets by ity of tablet 00:00: mouth [place] 00 every Medical other day. Branch allopurinoL 2021-0 Yes [id number] 50mg Take 0.5 [facility] 100 mg 9-12 tablets by ity of tablet 00:00: mouth [place] 00 every Medical other day. Branch allopurinoL 2021-0 Yes [id number] 50mg Take 0.5 [facility] 100 mg 9-12 tablets by ity of tablet 00:00: mouth [place] 00 every Medical other day. Branch allopurinoL 2021-0 Yes [id number] 50mg Take 0.5 [facility] 100 mg 9-12 tablets by ity of tablet 00:00: mouth [place] 00 every Medical other day. Branch allopurinoL 2021-0 Yes [id number] 50mg Take 0.5 [facility] 100 mg 9-12 tablets by ity of tablet 00:00: mouth [place] 00 every Medical other day. Branch allopurinoL 2021-0 Yes [id number] 50mg Take 0.5 [facility] 100 mg 9-12 tablets by ity of tablet 00:00: mouth [place] 00 every Medical other day. Branch allopurinoL 2021-0 Yes [id number] 50mg Take 0.5 [facility] 100 mg 9-12 tablets by it[facility] of tablet 00:00: mouth [place] 00 every Medical other day. Branch allopurinoL 2021-0 Yes [id number] 50mg Take 0.5 [facility] 100 mg 9-12 tablets by ity of tablet 00:00: mouth [place] 00 every Medical other day. Branch allopurinoL 2021-0 3- No [id number] 50mg Take 0.5 [facility] 100 mg 9-12 01-05 tablets by ity of tablet 00:00: 00:00 mouth [place] 00 :00 every Medical other day. Branch allopurinoL 2021-0 3- No [id number] 50mg Take 0.5 [facility] 100 mg 9-12 01-05 tablets by ity of tablet 00:00: 00:00 mouth [place] 00 :00 every Medical other day. Branch allopurinoL 2021-2022- No [id number] 50mg Take 0.5 [facility] 100 mg 11-1305 tablets by ity of tablet 00:00: 00:00 mouth [place] 00 :00 every Medical other day. [place] allopurinoL 2021-2022- No [id number] 50mg Take 0.5 [facility] 100 mg 11-1305 tablets by ity of tablet 00:00: 00:00 mouth [place] 00 :00 every Medical other day. [place] hydrOXYzine 2021-2021- No [id number] 25mg Take 1 [facility] 25 mg 11-1317 capsule by ity of capsule 00:00: 00:00 mouth 3 [place] 00 :00 (three) Medical times [place] daily as needed for Itching. hydrOXYzine 2021-2021- [...] 1{puff} Use 1 Puff [facility] ne HCl - in each ity of (AFRIN 09:34: nostril [place] NASAL) 49 every Medical other day. Branch Patient takes afrin over the counter, takes every other day bumetanide 2-0 Yes 1mg Take 1 mg Un renetta 1 mg tablet - by mouth ity of 09:34: in the [place] 48 morning. Medical Indication Branch s: reports kidney Dr Rx, ~2 mths ago bumetanide 2022-0 Yes 1mg Take 1 mg Un renetta 1 mg tablet - by mouth ity of 09:34: in the [place] [address] morning. Medical Indication Branch s: reports kidney Dr Rx, ~2 mths ago bumetanide 2022-0 Yes 1mg Take 1 mg Un renetta 1 mg tablet - by mouth ity of 09:34: in the [place] [address] morning. Medical Indication Branch s: reports kidney Dr Rx, ~2 mths ago bumetanide 2022-0 Yes 1mg Take 1 mg Un renetta 1 mg tablet 9- by mouth ity of 09:34: in the [place] [address] morning. Medical Indication Branch s: reports kidney Dr Rx, ~2 mths ago bumetanide 2022-0 Yes 1mg Take 1 mg Un renetta 1 mg tablet - by mouth ity of 09:34: in the [place] [address] morning. Medical Indication Branch s: reports kidney Dr Rx, ~2 mths ago bumetanide 2022-0 Yes 1mg Take 1 mg Un renetta 1 mg tablet 9-01 by mouth ity of 09:34: in the [place] morning. Medical Indication Branch s: reports kidney Dr Rx, ~2 mths ago bumetanide 2022-0 Yes 1mg Take 1 mg Un renetta 1 mg tablet 9-01 by mouth ity of 09:34: in the [place] morning. Medical Indication Branch s: reports kidney Dr Rx, ~2 mths ago bumetanide 2022-0 Yes 1mg Take 1 mg Un renetta 1 mg tablet 9-01 by mouth ity of 09:34: in the [place] morning. Medical Indication Branch s: reports kidney Dr Rx, ~2 mths ago bumetanide 2022-0 Yes 1mg Take 1 mg Un renetta 1 mg tablet 9-01 by mouth ity of 09:34: in the [place] morning. Medical Indication Branch s: reports kidney Dr Rx, ~2 mths ago bumetanide 2022-0 Yes 1mg Take 1 mg Un renetta 1 mg tablet 9-01 by mouth ity of 09:34: in the [place] morning. Medical Indication Branch s: reports kidney Dr Rx, ~2 mths ago bumetanide 2022-0 Yes 1mg Take 1 mg Un renetta 1 mg tablet 9-01 by mouth ity of 09:34: in the [place] morning. Medical Indication Branch s: reports kidney Dr Rx, ~2 mths ago bumetanide 2022-0 Yes 1mg Take 1 mg Un renetta 1 mg tablet 9-01 by mouth ity of 09:34: in the [place] morning. Medical Indication Branch s: reports kidney Dr Rx, ~2 mths ago bumetanide 2022-0 Yes 1mg Take 1 mg Un renetta 1 mg tablet 9-01 by mouth ity of 09:34: in the [place] [address] morning. Medical Indication Branch s: reports kidney Dr Rx, ~2 mths ago bumetanide 2022-0 Yes 1mg Take 1 mg Un renetta 1 mg tablet 9-01 by mouth ity of 09:34: in the [place] morning. Medical Indication Branch s: reports kidney Dr Rx, ~2 mths ago bumetanide 2022-0 Yes 1mg Take 1 mg Un renetta 1 mg tablet 9-01 by mouth ity of 09:34: in the [place] morning. Medical Indication Branch s: reports kidney Dr Rx, ~2 mths ago bumetanide 2022-0 Yes 1mg Take 1 mg Un renetta 1 mg tablet 9-01 by mouth ity of 09:34: in the [place] morning. Medical Indication Branch s: reports kidney Dr Rx, ~2 mths ago bumetanide 2022-0 Yes 1mg Take 1 mg Un renetta 1 mg tablet 9-01 by mouth ity of 09:34: in the [place] morning. Medical Indication Branch s: reports kidney Dr Rx, ~2 mths ago bumetanide 2022-0 Yes 1mg Take 1 mg Un renetta 1 mg tablet 9-01 by mouth ity of 09:34: in the [place] [address] morning. Medical Indication Branch s: reports kidney Dr Rx, ~2 mths ago bumetanide 2022-0 Yes 1mg Take 1 mg Un renetta 1 mg tablet 9-01 by mouth ity of 09:34: in the [place] morning. Medical Indication Branch s: reports kidney Dr Rx, ~2 mths ago bumetanide 2022-0 Yes 1mg Take 1 mg Un renetta 1 mg tablet 9-01 by mouth ity of 09:34: in the [place] [address] morning. Medical Indication Branch s: reports kidney Dr Rx, ~2 mths ago bumetanide 2022-0 Yes 1mg Take 1 mg Un renetta 1 mg tablet 9-01 by mouth ity of 09:34: in the [place] [address] morning. Medical Indication Branch s: reports kidney Dr Rx, ~2 mths ago bumetanide 2022-0 Yes 1mg Take 1 mg Un renetta 1 mg tablet 9-01 by mouth ity of 09:34: in the [place] [address] morning. Medical Indication Branch s: reports kidney Dr Rx, ~2 mths ago bumetanide 2022-0 Yes 1mg Take 1 mg Un renetta 1 mg tablet 9-01 by mouth ity of 09:34: in the [place] [address] morning. Medical Indication Branch s: reports kidney Dr Rx, ~2 mths ago bumetanide 2022-0 Yes 1mg Take 1 mg Un renetta 1 mg tablet 9-01 by mouth ity of 09:34: in the [place] [address] morning. Medical Indication Branch s: reports kidney Dr Rx, ~2 mths ago bumetanide 2022-0 Yes 1mg Take 1 mg Un renetta 1 mg tablet 9-01 by mouth ity of 09:34: in the [place] [address] morning. Medical Indication Branch s: reports kidney Dr Rx, ~2 mths ago bumetanide 2022-0 Yes 1mg Take 1 mg Un renetta 1 mg tablet 9-01 by mouth ity of 09:34: in the [place] morning. Medical Indication Branch s: reports kidney Dr Rx, ~2 mths ago bumetanide 2022-0 Yes 1mg Take 1 mg Un renetta 1 mg tablet 9-01 by mouth ity of 09:34: in the [place] [address] morning. Medical Indication Branch s: reports kidney Dr Rx, ~2 mths ago bumetanide 0 Yes 1mg Take 1 mg Un renetta 1 mg tablet 11-02 by mouth ity of 09:34: in the 48 morning. Medical Indication Branch s: reports kidney Dr Rx, ~2 mths ago Magnesium 2021-0 Yes [id number] 400mg Take 400 [facility] Oxide 420 8-24 [...] acute pain, chronic pain Magnesium 2021-0 Yes [id number] 400mg Take 400 [facility] Oxide 420 8-24 [...] acute pain, chronic pain Magnesium 2021-0 Yes [id number] 400mg Take 400 [facility] Oxide 420 8-24 [...] acute pain, chronic pain Magnesium 2021-0 Yes [id number] 400mg Take 400 [facility] Oxide 420 8-24 [...] acute pain, chronic pain Magnesium 2021-0 Yes [id number] 400mg Take 400 [facility] Oxide 420 8-24 [...] acute pain, chronic pain Magnesium 2021-0 Yes [id number] 400mg Take 400 [facility] Oxide 420 8-24 [...] acute pain, chronic pain Magnesium 2021-0 Yes [id number] 400mg Take 400 [facility] Oxide 420 8-24 [...] acute pain, chronic pain Magnesium 2021-0 Yes [id number] 400mg Take 400 [facility] Oxide 420 8-24 [...] acute pain, chronic pain Magnesium 2021-0 Yes [id number] 400mg Take 400 [facility] Oxide 420 8-24 [...] acute pain, chronic pain Magnesium 2021-0 Yes [id number] 400mg Take 400 [facility] Oxide 420 8-24 [...] acute pain, chronic pain Magnesium 2021-0 Yes [id number] 400mg Take 400 [facility] Oxide 420 8-24 [...] acute pain, chronic pain Magnesium 2-0 Yes [id number] 400mg Take 400 [facility] Oxide 420 8-24 [...] acute pain, chronic pain Magnesium 2-0 Yes [id number] 400mg Take 400 [facility] Oxide 420 8-24 [...] acute pain, chronic pain Magnesium 2021-0 Yes [id number] 400mg Take 400 [facility] Oxide 420 8-24 [...] acute pain, chronic pain Magnesium 2021-0 Yes [id number] 400mg Take 400 [facility] Oxide 420 8-24 [...] acute pain, chronic pain Magnesium 2021-0 Yes [id number] 400mg Take 400 [facility] Oxide 420 8-24 [...] acute pain, chronic pain Magnesium 2021-0 Yes [id number] 400mg Take 400 [facility] Oxide 420 8-24 [...] acute pain, chronic pain Magnesium 2021-0 Yes [id number] 400mg Take 400 [facility] Oxide 420 8-24 [...] acute pain, chronic pain Magnesium 2021-0 Yes [id number] 400mg Take 400 [facility] Oxide 420 8-24 [...] acute pain, chronic pain Magnesium 2021-0 Yes [id number] 400mg Take 400 [facility] Oxide 420 8-24 [...] acute pain, chronic pain Magnesium 2021-0 Yes [id number] 400mg Take 400 [facility] Oxide 420 8-24 [...] acute pain, chronic pain Magnesium 2021-0 Yes [id number] 400mg Take 400 [facility] Oxide 420 8-24 [...] acute pain, chronic pain Magnesium 2021-0 Yes [id number] 400mg Take 400 [facility] Oxide 420 8-24 [...] acute pain, chronic pain Magnesium 2021-0 Yes [id number] 400mg Take 400 [facility] Oxide 420 8-24 mg by ity of mg Tab 00:00: mouth [place] 00 daily. Medical Branch Magnesium 2021-0 Yes [id number] 400mg Take 400 [facility] Oxide 420 8-24 mg by ity of mg Tab 00:00: mouth [place] 00 daily. Medical Branch Magnesium 2021-0 Yes [id number] 400mg Take 400 [facility] Oxide 420 8-24 mg by ity of mg Tab 00:00: mouth [place] 00 daily. Medical Branch Magnesium 2021-0 Yes [id number] 400mg Take 400 [facility] Oxide 420 8-24 mg by ity of mg Tab 00:00: mouth [place] 00 daily. Medical Branch Magnesium 2021-0 Yes [id number] 400mg Take 400 [facility] Oxide 420 8-24 mg by ity of mg Tab 00:00: mouth [place] 00 daily. Medical Branch Magnesium 2021-0 Yes [id number] 400mg Take 400 [facility] Oxide 420 8-24 mg by ity of mg Tab 00:00: mouth [place] 00 daily. Medical Branch Magnesium 2022-0 Yes [id number] 400mg Take 400 [facility] Oxide 420 8-24 mg by ity of mg Tab 00:00: mouth [place] 00 daily. Medical Branch Magnesium 2-0 Yes [id number] 400mg Take 400 [facility] Oxide 420 8-24 mg by ity of mg Tab 00:00: mouth [place] 00 daily. Medical Branch Magnesium 2-0 Yes [id number] 400mg Take 400 [facility] Oxide 420 8-24 mg by ity of mg Tab 00:00: mouth [place] 00 daily. Medical Branch Magnesium 2021-0 Yes [id number] 400mg Take 400 [facility] Oxide 420 8-24 mg by ity of mg Tab 00:00: mouth [place] 00 daily. Medical Branch Magnesium 2021-0 Yes [id number] 400mg Take 400 [facility] Oxide 420 8-24 mg by ity of mg Tab 00:00: mouth [place] 00 daily. Medical Branch Magnesium 2021-0 Yes [id number] 400mg Take 400 [facility] Oxide 420 8-24 mg by ity of mg Tab 00:00: mouth [place] 00 daily. Medical Branch Magnesium 2021-0 Yes [id number] 400mg Take 400 [facility] Oxide 420 8-24 mg by ity of mg Tab 00:00: mouth [place] 00 daily. Medical Branch Magnesium 2021-0 Yes [id number] 400mg Take 400 [facility] Oxide 420 8-24 mg by ity of mg Tab 00:00: mouth [place] 00 daily. Medical Branch Magnesium 2021-0 Yes [id number] 400mg Take 400 [facility] Oxide 420 8-24 mg by ity of mg Tab 00:00: mouth [place] 00 daily. Medical Branch Magnesium 2-0 Yes [id number] 400mg Take 400 [facility] Oxide 420 8-24 mg by ity of mg Tab 00:00: mouth [place] 00 daily. Medical Branch Magnesium 2-0 Yes [id number] 400mg Take 400 [facility] Oxide 420 8-24 mg by ity of mg Tab 00:00: mouth [place] 00 daily. Medical Branch Magnesium 2-0 Yes [id number] 400mg Take 400 [facility] Oxide 420 8-24 mg by ity of mg Tab 00:00: mouth [place] 00 daily. Medical Branch Magnesium 2-0 Yes [id number] 400mg Take 400 [facility] Oxide 420 8-24 mg by ity of mg Tab 00:00: mouth [place] 00 daily. Medical Branch Magnesium 2-0 Yes [id number] 400mg Take 400 [facility] Oxide 420 8-24 mg by ity of mg Tab 00:00: mouth [place] 00 daily. Medical Branch Magnesium 2-0 Yes [id number] 400mg Take 400 [facility] Oxide 420 8-24 mg by ity of mg Tab 00:00: mouth [place] 00 daily. Medical Branch Magnesium 2-0 Yes [id number] 400mg Take 400 [facility] Oxide 420 8-24 mg by ity of mg Tab 00:00: mouth [place] 00 daily. Medical Branch Magnesium 2-0 Yes [id number] 400mg Take 400 [facility] Oxide 420 8-24 mg by ity of mg Tab 00:00: mouth [place] 00 daily. Medical Branch Magnesium 2021-0 Yes [id number] 400mg Take 400 [facility] Oxide 420 8-24 mg by ity of mg Tab 00:00: mouth [place] 00 daily. Medical Branch Magnesium 2021-0 Yes [id number] 400mg Take 400 [facility] Oxide 420 8-24 mg by ity of mg Tab 00:00: mouth [place] 00 daily. Medical Branch Magnesium 2-0 Yes [id number] 400mg Take 400 [facility] Oxide 420 8-24 mg by ity of mg Tab 00:00: mouth [place] 00 daily. Medical Branch Magnesium 2021-0 Yes [id number] 400mg Take 400 [facility] Oxide 420 8-24 mg by ity of mg Tab 00:00: mouth [place] 00 daily. Medical Branch Magnesium 2-0 Yes [id number] 400mg Take 400 [facility] Oxide 420 8-24 mg by ity of mg Tab 00:00: mouth [place] 00 daily. Medical Branch Magnesium 2-0 Yes [id number] 400mg Take 400 [facility] Oxide 420 8-24 mg by ity of mg Tab 00:00: mouth [place] 00 daily. Medical Branch Magnesium 2-0 Yes [id number] 400mg Take 400 [facility] Oxide 420 8-24 mg by ity of mg Tab 00:00: mouth [place] 00 daily. Medical Branch Magnesium 2-0 Yes [id number] 400mg Take 400 [facility] Oxide 420 8-24 mg by ity of mg Tab 00:00: mouth [place] 00 daily. Medical Branch Magnesium 2-0 Yes [id number] 400mg Take 400 [facility] Oxide 420 8-24 mg by ity of mg Tab 00:00: mouth [place] 00 daily. Medical Branch Magnesium 2-0 Yes [id number] 400mg Take 400 [facility] Oxide 420 8-24 mg by ity of mg Tab 00:00: mouth [place] 00 daily. Medical Branch Magnesium 2-0 Yes [id number] 400mg Take 400 [facility] Oxide 420 8-24 mg by ity of mg Tab 00:00: mouth [place] 00 daily. Medical Branch Magnesium 2-0 Yes [id number] 400mg Take 400 [facility] Oxide 420 8-24 mg by ity of mg Tab 00:00: mouth [place] 00 daily. Medical Branch Magnesium 2-0 Yes [id number] 400mg Take 400 [facility] Oxide 420 8-24 mg by ity of mg Tab 00:00: mouth [place] 00 daily. Medical Branch Magnesium 2-0 Yes [id number] 400mg Take 400 [facility] Oxide 420 8-24 mg by ity of mg Tab 00:00: mouth [place] 00 daily. Medical Branch Magnesium 2-0 Yes [id number] 400mg Take 400 [facility] Oxide 420 8-24 mg by ity of mg Tab 00:00: mouth 00 daily. Medical Branch Magnesium 2021-0 Yes [id number] 400mg Take 400 [facility] Oxide 420 8-24 mg by ity of mg Tab 00:00: mouth 00 daily. Medical Branch Magnesium 2-0 Yes [id number] 400mg Take 400 [facility] Oxide 420 8-24 mg by ity of mg Tab 00:00: mouth [place] 00 daily. Medical Branch Magnesium 2-0 Yes [id number] 400mg Take 400 [facility] Oxide 420 8-24 mg by ity of mg Tab 00:00: mouth [place] 00 daily. Medical Branch Magnesium 2-0 Yes [id number] 400mg Take 400 [facility] Oxide 420 8-24 mg by ity of mg Tab 00:00: mouth [place] 00 daily. Medical Branch Magnesium 2-0 Yes [id number] 400mg Take 400 [facility] Oxide 420 8-24 mg by ity of mg Tab 00:00: mouth [place] 00 daily. Medical Branch Magnesium 2-0 Yes [id number] 400mg Take 400 [facility] Oxide 420 8-24 mg by ity of mg Tab 00:00: mouth [place] 00 daily. Medical Branch Magnesium 2-0 Yes [id number] 400mg Take 400 [facility] Oxide 420 8-24 mg by ity of mg Tab 00:00: mouth [place] 00 daily. Medical Branch Magnesium 2-0 Yes [id number] 400mg Take 400 [facility] Oxide 420 8-24 mg by ity of mg Tab 00:00: mouth [place] 00 daily. Medical Branch Magnesium 2-0 Yes [id number] 400mg Take 400 [facility] Oxide 420 8-24 mg by ity of mg Tab 00:00: mouth [place] 00 daily. Medical Branch Magnesium 2-0 Yes [id number] 400mg Take 400 [facility] Oxide 420 8-24 mg by ity of mg Tab 00:00: mouth [place] 00 daily. Medical Branch Magnesium 2-0 Yes [id number] 400mg Take 400 [facility] Oxide 420 8-24 mg by ity of mg Tab 00:00: mouth [place] 00 daily. Medical Branch Magnesium 2-0 Yes [id number] 400mg Take 400 [facility] Oxide 420 8-24 mg by ity of mg Tab 00:00: mouth [place] 00 daily. Medical Branch Magnesium 2021-0 Yes [id number] 400mg Take 400 [facility] Oxide 420 8-24 mg by ity of mg Tab 00:00: mouth [place] 00 daily. Medical Branch Magnesium 2021-0 Yes [id number] 400mg Take 400 [facility] Oxide 420 8-24 mg by ity of mg Tab 00:00: mouth [place] 00 daily. Medical Branch Magnesium 2021-0 Yes [id number] 400mg Take 400 [facility] Oxide 420 8-24 mg by ity of mg Tab 00:00: mouth [place] 00 daily. Medical Branch Magnesium 2021-0 Yes [id number] 400mg Take 400 [facility] Oxide 420 8-24 mg by ity of mg Tab 00:00: mouth [place] 00 daily. Medical Branch Magnesium 2-0 Yes [id number] 400mg Take 400 [facility] Oxide 420 8-24 mg by ity of mg Tab 00:00: mouth [place] 00 daily. Medical Branch Magnesium 2-0 Yes [id number] 400mg Take 400 [facility] Oxide 420 8-24 mg by ity of mg Tab 00:00: mouth [place] 00 daily. Medical Branch Magnesium 2-0 Yes [id number] 400mg Take 400 [facility] Oxide 420 8-24 mg by ity of mg Tab 00:00: mouth [place] 00 daily. Medical Branch Magnesium 2-0 Yes [id number] 400mg Take 400 [facility] Oxide 420 8-24 mg by ity of mg Tab 00:00: mouth [place] 00 daily. Medical Branch Magnesium 2-0 Yes [id number] 400mg Take 400 [facility] Oxide 420 8-24 mg by ity of mg Tab 00:00: mouth [place] 00 daily. Medical Branch Magnesium 2-0 Yes [id number] 400mg Take 400 [facility] Oxide 420 8-24 mg by ity of mg Tab 00:00: mouth [place] 00 daily. Medical Branch Magnesium 2-0 Yes [id number] 400mg Take 400 [facility] Oxide 420 8-24 mg by ity of mg Tab 00:00: mouth [place] 00 daily. Medical Branch Magnesium 2-0 Yes [id number] 400mg Take 400 [facility] Oxide 420 8-24 mg by ity of mg Tab 00:00: mouth [place] 00 daily. Medical Branch Magnesium 2-0 Yes [id number] 400mg Take 400 [facility] Oxide 420 8-24 mg by ity of mg Tab 00:00: mouth [place] 00 daily. Medical Branch Magnesium 2-0 Yes [id number] 400mg Take 400 [facility] Oxide 420 8-24 mg by ity of mg Tab 00:00: mouth [place] 00 daily. Medical Branch Magnesium 2-0 Yes [id number] 400mg Take 400 [facility] Oxide 420 8-24 mg by ity of mg Tab 00:00: mouth [place] 00 daily. Medical Branch Magnesium 2021-0 Yes [id number] 400mg Take 400 [facility] Oxide 420 8-24 mg by ity of mg Tab 00:00: mouth [place] 00 daily. Medical Branch Magnesium 2-0 Yes [id number] 400mg Take 400 [facility] Oxide 420 8-24 mg by ity of mg Tab 00:00: mouth [place] 00 daily. Medical Branch Magnesium 2021-0 Yes [id number] 400mg Take 400 [facility] Oxide 420 8-24 mg by ity of mg Tab 00:00: mouth [place] 00 daily. Medical Branch Magnesium 2-0 Yes [id number] 400mg Take 400 [facility] Oxide 420 8-24 mg by ity of mg Tab 00:00: mouth [place] 00 daily. Medical Branch Magnesium 2-0 Yes [id number] 400mg Take 400 [facility] Oxide 420 8-24 mg by ity of mg Tab 00:00: mouth [place] 00 daily. Medical Branch Magnesium 2-0 Yes [id number] 400mg Take 400 [facility] Oxide 420 8-24 mg by ity of mg Tab 00:00: mouth [place] 00 daily. Medical Branch Magnesium 2-0 Yes [id number] 400mg Take 400 [facility] Oxide 420 8-24 mg by ity of mg Tab 00:00: mouth [place] 00 daily. Medical Branch Magnesium 2-0 Yes [id number] 400mg Take 400 [facility] Oxide 420 8-24 mg by ity of mg Tab 00:00: mouth [place] 00 daily. Medical Branch Magnesium 2-0 Yes [id number] 400mg Take 400 [facility] Oxide 420 8-24 mg by ity of mg Tab 00:00: mouth [place] 00 daily. Medical Branch Magnesium 2-0 Yes [id number] 400mg Take 400 [facility] Oxide 420 8-24 mg by ity of mg Tab 00:00: mouth [place] 00 daily. Medical Branch Magnesium 2-0 Yes [id number] 400mg Take 400 [facility] Oxide 420 8-24 mg by ity of mg Tab 00:00: mouth [place] 00 daily. Medical Branch Magnesium 2-0 Yes [id number] 400mg Take 400 [facility] Oxide 420 8-24 mg by ity of mg Tab 00:00: mouth [place] 00 daily. Medical Branch Magnesium 2021-0 Yes [id number] 400mg Take 400 [facility] Oxide 420 8-24 mg by ity of mg Tab 00:00: mouth 00 daily. Medical Branch Magnesium 2021-0 Yes [id number] 400mg Take 400 [facility] Oxide 420 8-24 mg by ity of mg Tab 00:00: mouth 00 daily. Medical Branch Magnesium 2021-0 Yes [id number] 400mg Take 400 [facility] Oxide 420 8-24 mg by ity of mg Tab 00:00: mouth 00 daily. Medical Branch Magnesium 2021-0 Yes [id number] 400mg Take 400 [facility] Oxide 420 8-24 mg by ity of mg Tab 00:00: mouth 00 daily. Medical Branch Magnesium 2-0 Yes [id number] 400mg Take 400 [facility] Oxide 420 8-24 mg by ity of mg Tab 00:00: mouth [place] 00 daily. Medical Branch Magnesium 2-0 Yes [id number] 400mg Take 400 [facility] Oxide 420 8-24 mg by ity of mg Tab 00:00: mouth 00 daily. Medical Branch Magnesium 2-0 Yes [id number] 400mg Take 400 [facility] Oxide 420 8-24 mg by ity of mg Tab 00:00: mouth [place] 00 daily. Medical Branch Magnesium 2-0 Yes [id number] 400mg Take 400 [facility] Oxide 420 8-24 mg by ity of mg Tab 00:00: mouth [place] 00 daily. Medical Branch Magnesium 2-0 Yes [id number] 400mg Take 400 [facility] Oxide 420 8-24 mg by ity of mg Tab 00:00: mouth [place] 00 daily. Medical Branch Magnesium 2-0 Yes [id number] 400mg Take 400 [facility] Oxide 420 8-24 mg by ity of mg Tab 00:00: mouth [place] 00 daily. Medical Branch Magnesium 2-0 Yes [id number] 400mg Take 400 [facility] Oxide 420 8-24 mg by ity of mg Tab 00:00: mouth [place] 00 daily. Medical Branch Magnesium 2-0 Yes [id number] 400mg Take 400 [facility] Oxide 420 8-24 mg by ity of mg Tab 00:00: mouth [place] 00 daily. Medical Branch Magnesium 2-0 Yes [id number] 400mg Take 400 [facility] Oxide 420 8-24 mg by ity of mg Tab 00:00: mouth [place] 00 daily. Medical Branch Magnesium 2-0 Yes [id number] 400mg Take 400 [facility] Oxide 420 8-24 mg by ity of mg Tab 00:00: mouth [place] 00 daily. Medical Branch Magnesium 2021-0 Yes [id number] 400mg Take 400 [facility] Oxide 420 8-24 mg by ity of mg Tab 00:00: mouth [place] 00 daily. Medical Branch Magnesium 2021-0 Yes [id number] 400mg Take 400 [facility] Oxide 420 8-24 mg by ity of mg Tab 00:00: mouth [place] 00 daily. Medical Branch Magnesium 2021-0 Yes [id number] 400mg Take 400 [facility] Oxide 420 8-24 mg by ity of mg Tab 00:00: mouth [place] 00 daily. Medical Branch Magnesium 2021-0 Yes [id number] 400mg Take 400 [facility] Oxide 420 8-24 mg by ity of mg Tab 00:00: mouth [place] 00 daily. Medical Branch Magnesium 2-0 Yes [id number] 400mg Take 400 [facility] Oxide 420 8-24 mg by ity of mg Tab 00:00: mouth [place] 00 daily. Medical Branch Magnesium 2-0 Yes [id number] 400mg Take 400 [facility] Oxide 420 8-24 mg by ity of mg Tab 00:00: mouth [place] 00 daily. Medical Branch Magnesium 2-0 Yes [id number] 400mg Take 400 [facility] Oxide 420 8-24 mg by ity of mg Tab 00:00: mouth [place] 00 daily. Medical Branch Magnesium 2-0 Yes [id number] 400mg Take 400 [facility] Oxide 420 8-24 mg by ity of mg Tab 00:00: mouth [place] 00 daily. Medical Branch Magnesium 2-0 Yes [id number] 400mg Take 400 [facility] Oxide 420 8-24 mg by [facility] mg Tab 00:00: mouth [place] 00 daily. [facility] Magnesium 2-0 Yes [id number] 400mg Take 400 [facility] Oxide 420 8-24 mg by [facility] of mg Tab 00:00: mouth [place] 00 daily. [facility] Magnesium 2021-0 Yes [id number] 400mg Take 400 [facility] Oxide 420 8-24 mg by [facility] of mg Tab 00:00: mouth [place] 00 daily. [facility] Magnesium 2021-0 Yes [id number] 400mg Take 400 [facility] Oxide 420 8-24 mg by [facility] of mg Tab 00:00: mouth [place] 00 daily. [facility] Magnesium 2021-0 Yes [id number] 400mg Take 400 [facility] Oxide 420 8-24 mg by [facility] of mg Tab 00:00: mouth 00 daily. [facility] Magnesium 2021-0 Yes [id number] 400mg Take 400 [facility] Oxide 420 8-24 mg by [facility] of mg Tab 00:00: mouth 00 daily. [facility] Magnesium 2021-0 Yes [id number] 400mg Take 400 [facility] Oxide 420 8-24 mg by [facility] of mg Tab 00:00: mouth 00 daily. [facility] Magnesium 2021-0 Yes [id number] 400mg Take 400 [facility] Oxide 420 8-24 mg by [facility] of mg Tab 00:00: mouth 00 daily. [facility] Magnesium 2021-0 Yes [id number] 400mg Take 400 [facility] Oxide 420 8-24 mg by [facility] of mg Tab 00:00: mouth 00 daily. [facility] Magnesium 2021-0 Yes [id number] 400mg Take 400 [facility] Oxide 420 8-24 mg by [facility] of mg Tab 00:00: mouth 00 daily. [facility] Magnesium 2021-0 Yes [id number] 400mg Take 400 [facility] Oxide 420 8-24 mg by [facility] of mg Tab 00:00: mouth 00 daily. [facility] Magnesium 2021-0 Yes [id number] 400mg Take 400 [facility] Oxide 420 8-24 mg by [facility] of mg Tab 00:00: mouth [place] 00 daily. [facility] Magnesium 2021-0 Yes [id number] 400mg Take 400 [facility] Oxide 420 8-24 mg by [facility] of mg Tab 00:00: mouth [place] 00 daily. [facility] acetaminoph 2021- No 2745 1{tbl} Take 1 [facility] en-codeine 8-24 10-21 tablet by [facility] of (TYLENOL-CO 00:00: 00:[place] DEINE #3[place] 00 :00 every 6 Medical 300-30 mg (six) Branch tablet hours as needed for Pain (scale 7-10). Indication s: acute pain, chronic pain triamcinolo 2022-0 Yes [id number] Apply to [facility] ne 8-10 area(s) 2 ity of acetonide 00:00: (two) [place] 0.1 % cream 00 times Medical daily. Branch Clobetasol 2022-0 Yes [id number] Apply to [facility] Propionate 8-10 area(s) 2 ity of 0.05 % 00:00: (two) [place] lotion 00 times Medical daily as Branch needed for Rash or Itching. triamcinolo 2022-0 Yes [id number] Apply to [facility] ne 8-10 area(s) 2 ity of acetonide 00:00: (two) [place] 0.1 % cream 00 times Medical daily. Branch Clobetasol 2022-0 Yes [id number] Apply to [facility] Propionate 8-10 area(s) 2 ity of 0.05 % 00:00: (two) [place] lotion 00 times Medical daily as Branch needed for Rash or Itching. triamcinolo 2022-0 Yes [id number] Apply to [facility] ne 8-10 area(s) 2 ity of acetonide 00:00: (two) [place] 0.1 % cream 00 times Medical daily. Branch Clobetasol 2022-0 Yes [id number] Apply to [facility] Propionate 8-10 area(s) 2 ity of 0.05 % 00:00: (two) [place] lotion 00 times Medical daily as Branch needed for Rash or Itching. triamcinolo 2022-0 Yes [id number] Apply to [facility] ne 8-10 area(s) 2 ity of acetonide 00:00: (two) [place] 0.1 % cream 00 times Medical daily. Branch Clobetasol 2022-0 Yes [id number] Apply to [facility] Propionate 8-10 area(s) 2 ity of 0.05 % 00:00: (two) [place] lotion 00 times Medical daily as Branch needed for Rash or Itching. triamcinolo 2022-0 Yes [id number] Apply to [facility] ne 8-10 area(s) 2 ity of acetonide 00:00: (two) [place] 0.1 % cream 00 times Medical daily. Branch Clobetasol 2022-0 Yes [id number] Apply to [facility] Propionate 8-10 area(s) 2 ity of 0.05 % 00:00: (two) [place] lotion 00 times Medical daily as Branch needed for Rash or Itching. triamcinolo 2022-0 Yes [id number] Apply to [facility] ne 8-10 area(s) 2 ity of acetonide 00:00: (two) [place] 0.1 % cream 00 times Medical daily. Branch Clobetasol 2022-0 Yes [id number] Apply to [facility] Propionate 8-10 area(s) 2 ity of 0.05 % 00:00: (two) [place] lotion 00 times Medical daily as Branch needed for Rash or Itching. triamcinolo 2022-0 Yes [id number] Apply to [facility] ne 8-10 area(s) 2 ity of acetonide 00:00: (two) [place] 0.1 % cream 00 times Medical daily. Branch Clobetasol 2022-0 Yes [id number] Apply to [facility] Propionate 8-10 area(s) 2 ity of 0.05 % 00:00: (two) [place] lotion 00 times Medical daily as Branch needed for Rash or Itching. triamcinolo 2022-0 Yes [id number] Apply to [facility] ne 8-10 area(s) 2 ity of acetonide 00:00: (two) [place] 0.1 % cream 00 times Medical daily. Branch Clobetasol 2022-0 Yes [id number] Apply to [facility] Propionate 8-10 area(s) 2 ity of 0.05 % 00:00: (two) [place] lotion 00 times Medical daily as Branch needed for Rash or Itching. triamcinolo 2022-0 Yes [id number] Apply to [facility] ne 8-10 area(s) 2 ity of acetonide 00:00: (two) [place] 0.1 % cream 00 times Medical daily. Branch Clobetasol 2022-0 Yes [id number] Apply to [facility] Propionate 8-10 area(s) 2 ity of 0.05 % 00:00: (two) [place] lotion 00 times Medical daily as Branch needed for Rash or Itching. triamcinolo 2022-0 Yes [id number] Apply to [facility] ne 8-10 area(s) 2 ity of acetonide 00:00: (two) [place] 0.1 % cream 00 times Medical daily. Branch Clobetasol 2022-0 Yes [id number] Apply to [facility] Propionate 8-10 area(s) 2 ity of 0.05 % 00:00: (two) [place] lotion 00 times Medical daily as Branch needed for Rash or Itching. triamcinolo 2022-0 Yes [id number] Apply to [facility] ne 8-10 area(s) 2 ity of acetonide 00:00: (two) [place] 0.1 % cream 00 times Medical daily. Branch Clobetasol 2022-0 Yes [id number] Apply to [facility] Propionate 8-10 area(s) 2 ity of 0.05 % 00:00: (two) [place] lotion 00 times Medical daily as Branch needed for Rash or Itching. triamcinolo 2022-0 Yes [id number] Apply to [facility] ne 8-10 area(s) 2 ity of acetonide 00:00: (two) [place] 0.1 % cream 00 times Medical daily. Branch Clobetasol 2022-0 Yes [id number] Apply to [facility] Propionate 8-10 area(s) 2 ity of 0.05 % 00:00: (two) [place] lotion 00 times Medical daily as Branch needed for Rash or Itching. triamcinolo 2022-0 Yes [id number] Apply to [facility] ne 8-10 area(s) 2 ity of acetonide 00:00: (two) [place] 0.1 % cream 00 times Medical daily. Branch Clobetasol 2022-0 Yes [id number] Apply to [facility] Propionate 8-10 area(s) 2 ity of 0.05 % 00:00: (two) [place] lotion 00 times Medical daily as Branch needed for Rash or Itching. triamcinolo 2022-0 Yes [id number] Apply to [facility] ne 8-10 area(s) 2 ity of acetonide 00:00: (two) [place] 0.1 % cream 00 times Medical daily. Branch Clobetasol 2022-0 Yes [id number] Apply to [facility] Propionate 8-10 area(s) 2 ity of 0.05 % 00:00: (two) [place] lotion 00 times Medical daily as Branch needed for Rash or Itching. triamcinolo 2022-0 Yes [id number] Apply to [facility] ne 8-10 area(s) 2 ity of acetonide 00:00: (two) [place] 0.1 % cream 00 times Medical daily. Branch Clobetasol 2022-0 Yes [id number] Apply to [facility] Propionate 8-10 area(s) 2 ity of 0.05 % 00:00: (two) [place] lotion 00 times Medical daily as Branch needed for Rash or Itching. triamcinolo 2022-0 Yes [id number] Apply to [facility] ne 8-10 area(s) 2 ity of acetonide 00:00: (two) [place] 0.1 % cream 00 times Medical daily. Branch Clobetasol 2022-0 Yes [id number] Apply to [facility] Propionate 8-10 area(s) 2 ity of 0.05 % 00:00: (two) [place] lotion 00 times Medical daily as Branch needed for Rash or Itching. triamcinolo 2022-0 Yes [id number] Apply to [facility] ne 8-10 area(s) 2 ity of acetonide 00:00: (two) [place] 0.1 % cream 00 times Medical daily. Branch Clobetasol 2022-0 Yes [id number] Apply to [facility] Propionate 8-10 area(s) 2 ity of 0.05 % 00:00: (two) [place] lotion 00 times Medical daily as Branch needed for Rash or Itching. triamcinolo 2022-0 Yes [id number] Apply to [facility] ne 8-10 area(s) 2 ity of acetonide 00:00: (two) [place] 0.1 % cream 00 times Medical daily. Branch Clobetasol 2022-0 Yes [id number] Apply to [facility] Propionate 8-10 area(s) 2 ity of 0.05 % 00:00: (two) [place] lotion 00 times Medical daily as Branch needed for Rash or Itching. triamcinolo 2022-0 Yes [id number] Apply to [facility] ne 8-10 area(s) 2 ity of acetonide 00:00: (two) [place] 0.1 % cream 00 times Medical daily. Branch Clobetasol 2022-0 Yes [id number] Apply to [facility] Propionate 8-10 area(s) 2 ity of 0.05 % 00:00: (two) [place] lotion 00 times Medical daily as Branch needed for Rash or Itching. triamcinolo 2022-0 Yes [id number] Apply to [facility] ne 8-10 area(s) 2 ity of acetonide 00:00: (two) [place] 0.1 % cream 00 times Medical daily. Branch Clobetasol 2022-0 Yes [id number] Apply to [facility] Propionate 8-10 area(s) 2 ity of 0.05 % 00:00: (two) [place] lotion 00 times Medical daily as Branch needed for Rash or Itching. triamcinolo 2022-0 Yes [id number] Apply to [facility] ne 8-10 area(s) 2 ity of acetonide 00:00: (two) [place] 0.1 % cream 00 times Medical daily. Branch Clobetasol 2022-0 Yes [id number] Apply to [facility] Propionate 8-10 area(s) 2 ity of 0.05 % 00:00: (two) [place] lotion 00 times Medical daily as Branch needed for Rash or Itching. triamcinolo 2022-0 Yes [id number] Apply to [facility] ne 8-10 area(s) 2 ity of acetonide 00:00: (two) [place] 0.1 % cream 00 times Medical daily. Branch Clobetasol 2022-0 Yes [id number] Apply to [facility] Propionate 8-10 area(s) 2 ity of 0.05 % 00:00: (two) [place] lotion 00 times Medical daily as Branch needed for Rash or Itching. triamcinolo 2022-0 Yes [id number] Apply to [facility] ne 8-10 area(s) 2 ity of acetonide 00:00: (two) [place] 0.1 % cream 00 times Medical daily. Branch Clobetasol 2022-0 Yes [id number] Apply to [facility] Propionate 8-10 area(s) 2 ity of 0.05 % 00:00: (two) [place] lotion 00 times Medical daily as Branch needed for Rash or Itching. triamcinolo 2022-0 Yes [id number] Apply to [facility] ne 8-10 area(s) 2 ity of acetonide 00:00: (two) [place] 0.1 % cream 00 times Medical daily. Branch Clobetasol 2022-0 Yes [id number] Apply to [facility] Propionate 8-10 area(s) 2 ity of 0.05 % 00:00: (two) [place] lotion 00 times Medical daily as Branch needed for Rash or Itching. triamcinolo 2022-0 Yes [id number] Apply to [facility] ne 8-10 area(s) 2 ity of acetonide 00:00: (two) [place] 0.1 % cream 00 times Medical daily. Branch Clobetasol 2022-0 Yes [id number] Apply to [facility] Propionate 8-10 area(s) 2 ity of 0.05 % 00:00: (two) [place] lotion 00 times Medical daily as Branch needed for Rash or Itching. triamcinolo 2022-0 Yes [id number] Apply to [facility] ne 8-10 area(s) 2 ity of acetonide 00:00: (two) [place] 0.1 % cream 00 times Medical daily. Branch Clobetasol 2022-0 Yes [id number] Apply to [facility] Propionate 8-10 area(s) 2 ity of 0.05 % 00:00: (two) [place] lotion 00 times Medical daily as Branch needed for Rash or Itching. triamcinolo 2022-0 Yes [id number] Apply to [facility] ne 8-10 area(s) 2 ity of acetonide 00:00: (two) [place] 0.1 % cream 00 times Medical daily. Branch Clobetasol 2022-0 Yes [id number] Apply to [facility] Propionate 8-10 area(s) 2 ity of 0.05 % 00:00: (two) [place] lotion 00 times Medical daily as Branch needed for Rash or Itching. triamcinolo 2022-0 Yes [id number] Apply to [facility] ne 8-10 area(s) 2 ity of acetonide 00:00: (two) [place] 0.1 % cream 00 times Medical daily. Branch Clobetasol 2022-0 Yes [id number] Apply to [facility] Propionate 8-10 area(s) 2 ity of 0.05 % 00:00: (two) [place] lotion 00 times Medical daily as Branch needed for Rash or Itching. triamcinolo 2022-0 Yes [id number] Apply to [facility] ne 8-10 area(s) 2 ity of acetonide 00:00: (two) [place] 0.1 % cream 00 times Medical daily. Branch Clobetasol 2022-0 Yes [id number] Apply to [facility] Propionate 8-10 area(s) 2 ity of 0.05 % 00:00: (two) [place] lotion 00 times Medical daily as Branch needed for Rash or Itching. triamcinolo 2022-0 Yes [id number] Apply to [facility] ne 8-10 area(s) 2 ity of acetonide 00:00: (two) [place] 0.1 % cream 00 times Medical daily. Branch Clobetasol 2022-0 Yes [id number] Apply to [facility] Propionate 8-10 area(s) 2 ity of 0.05 % 00:00: (two) [place] lotion 00 times Medical daily as Branch needed for Rash or Itching. triamcinolo 2022-0 Yes [id number] Apply to [facility] ne 8-10 area(s) 2 ity of acetonide 00:00: (two) [place] 0.1 % cream 00 times Medical daily. Branch Clobetasol 2022-0 Yes [id number] Apply to [facility] Propionate 8-10 area(s) 2 ity of 0.05 % 00:00: (two) [place] lotion 00 times Medical daily as Branch needed for Rash or Itching. triamcinolo 2022-0 Yes [id number] Apply to [facility] ne 8-10 area(s) 2 ity of acetonide 00:00: (two) [place] 0.1 % cream 00 times Medical daily. Branch Clobetasol 2022-0 Yes [id number] Apply to [facility] Propionate 8-10 area(s) 2 ity of 0.05 % 00:00: (two) [place] lotion 00 times Medical daily as Branch needed for Rash or Itching. triamcinolo 2022-0 Yes [id number] Apply to [facility] ne 8-10 area(s) 2 ity of acetonide 00:00: (two) [place] 0.1 % cream 00 times Medical daily. Branch Clobetasol 2022-0 Yes [id number] Apply to [facility] Propionate 8-10 area(s) 2 ity of 0.05 % 00:00: (two) [place] lotion 00 times Medical daily as Branch needed for Rash or Itching. triamcinolo 2022-0 Yes [id number] Apply to [facility] ne 8-10 area(s) 2 ity of acetonide 00:00: (two) [place] 0.1 % cream 00 times Medical daily. Branch Clobetasol 2022-0 Yes [id number] Apply to [facility] Propionate 8-10 area(s) 2 ity of 0.05 % 00:00: (two) [place] lotion 00 times Medical daily as Branch needed for Rash or Itching. triamcinolo 2022-0 Yes [id number] Apply to [facility] ne 8-10 area(s) 2 ity of acetonide 00:00: (two) [place] 0.1 % cream 00 times Medical daily. Branch Clobetasol 2022-0 Yes [id number] Apply to [facility] Propionate 8-10 area(s) 2 ity of 0.05 % 00:00: (two) [place] lotion 00 times Medical daily as Branch needed for Rash or Itching. triamcinolo 2022-0 Yes [id number] Apply to [facility] ne 8-10 area(s) 2 ity of acetonide 00:00: (two) [place] 0.1 % cream 00 times Medical daily. Branch Clobetasol 2022-0 Yes [id number] Apply to [facility] Propionate 8-10 area(s) 2 ity of 0.05 % 00:00: (two) [place] lotion 00 times Medical daily as Branch needed for Rash or Itching. triamcinolo 2022-0 Yes [id number] Apply to [facility] ne 8-10 area(s) 2 ity of acetonide 00:00: (two) [place] 0.1 % cream 00 times Medical daily. Branch Clobetasol 2022-0 Yes [id number] Apply to [facility] Propionate 8-10 area(s) 2 ity of 0.05 % 00:00: (two) [place] lotion 00 times Medical daily as Branch needed for Rash or Itching. triamcinolo 2022-0 Yes [id number] Apply to [facility] ne 8-10 area(s) 2 ity of acetonide 00:00: (two) [place] 0.1 % cream 00 times Medical daily. Branch Clobetasol 2022-0 Yes [id number] Apply to [facility] Propionate 8-10 area(s) 2 ity of 0.05 % 00:00: (two) [place] lotion 00 times Medical daily as Branch needed for Rash or Itching. triamcinolo 2022-0 Yes [id number] Apply to [facility] ne 8-10 area(s) 2 ity of acetonide 00:00: (two) [place] 0.1 % cream 00 times Medical daily. Branch Clobetasol 2022-0 Yes [id number] Apply to [facility] Propionate 8-10 area(s) 2 ity of 0.05 % 00:00: (two) [place] lotion 00 times Medical daily as Branch needed for Rash or Itching. triamcinolo 2022-0 Yes [id number] Apply to [facility] ne 8-10 area(s) 2 ity of acetonide 00:00: (two) [place] 0.1 % cream 00 times Medical daily. Branch Clobetasol 2022-0 Yes [id number] Apply to [facility] Propionate 8-10 area(s) 2 ity of 0.05 % 00:00: (two) [place] lotion 00 times Medical daily as Branch needed for Rash or Itching. triamcinolo 2022-0 Yes [id number] Apply to [facility] ne 8-10 area(s) 2 ity of acetonide 00:00: (two) [place] 0.1 % cream 00 times Medical daily. Branch Clobetasol 2022-0 Yes [id number] Apply to [facility] Propionate 8-10 area(s) 2 ity of 0.05 % 00:00: (two) [place] lotion 00 times Medical daily as Branch needed for Rash or Itching. triamcinolo 2022-0 Yes [id number] Apply to [facility] ne 8-10 area(s) 2 ity of acetonide 00:00: (two) [place] 0.1 % cream 00 times Medical daily. Branch Clobetasol 2022-0 Yes [id number] Apply to [facility] Propionate 8-10 area(s) 2 ity of 0.05 % 00:00: (two) [place] lotion 00 times Medical daily as Branch needed for Rash or Itching. triamcinolo 2022-0 Yes [id number] Apply to [facility] ne 8-10 area(s) 2 ity of acetonide 00:00: (two) [place] 0.1 % cream 00 times Medical daily. Branch Clobetasol 2022-0 Yes [id number] Apply to [facility] Propionate 8-10 area(s) 2 ity of 0.05 % 00:00: (two) [place] lotion 00 times Medical daily as Branch needed for Rash or Itching. triamcinolo 2022-0 Yes [id number] Apply to [facility] ne 8-10 area(s) 2 ity of acetonide 00:00: (two) [place] 0.1 % cream 00 times Medical daily. Branch Clobetasol 2022-0 Yes [id number] Apply to [facility] Propionate 8-10 area(s) 2 ity of 0.05 % 00:00: (two) [place] lotion 00 times Medical daily as Branch needed for Rash or Itching. triamcinolo 2022-0 Yes [id number] Apply to [facility] ne 8-10 area(s) 2 ity of acetonide 00:00: (two) [place] 0.1 % cream 00 times Medical daily. Branch Clobetasol 2022-0 Yes [id number] Apply to [facility] Propionate 8-10 area(s) 2 ity of 0.05 % 00:00: (two) [place] lotion 00 times Medical daily as Branch needed for Rash or Itching. triamcinolo 2022-0 Yes [id number] Apply to [facility] ne 8-10 area(s) 2 ity of acetonide 00:00: (two) [place] 0.1 % cream 00 times Medical daily. Branch Clobetasol 2022-0 Yes [id number] Apply to [facility] Propionate 8-10 area(s) 2 ity of 0.05 % 00:00: (two) [place] lotion 00 times Medical daily as Branch needed for Rash or Itching. triamcinolo 2022-0 Yes [id number] Apply to [facility] ne 8-10 area(s) 2 ity of acetonide 00:00: (two) [place] 0.1 % cream 00 times Medical daily. Branch Clobetasol 2022-0 Yes [id number] Apply to [facility] Propionate 8-10 area(s) 2 ity of 0.05 % 00:00: (two) [place] lotion 00 times Medical daily as Branch needed for Rash or Itching. triamcinolo 2022-0 Yes [id number] Apply to [facility] ne 8-10 area(s) 2 ity of acetonide 00:00: (two) [place] 0.1 % cream 00 times Medical daily. Branch Clobetasol 2022-0 Yes [id number] Apply to [facility] Propionate 8-10 area(s) 2 ity of 0.05 % 00:00: (two) [place] lotion 00 times Medical daily as Branch needed for Rash or Itching. triamcinolo 2022-0 Yes [id number] Apply to [facility] ne 8-10 area(s) 2 ity of acetonide 00:00: (two) [place] 0.1 % cream 00 times Medical daily. Branch Clobetasol 2022-0 Yes [id number] Apply to [facility] Propionate 8-10 area(s) 2 ity of 0.05 % 00:00: (two) [place] lotion 00 times Medical daily as Branch needed for Rash or Itching. triamcinolo 2022-0 Yes [id number] Apply to [facility] ne 8-10 area(s) 2 ity of acetonide 00:00: (two) [place] 0.1 % cream 00 times Medical daily. Branch Clobetasol 2022-0 Yes [id number] Apply to [facility] Propionate 8-10 area(s) 2 ity of 0.05 % 00:00: (two) [place] lotion 00 times Medical daily as Branch needed for Rash or Itching. triamcinolo 2022-0 Yes [id number] Apply to [facility] ne 8-10 area(s) 2 ity of acetonide 00:00: (two) [place] 0.1 % cream 00 times Medical daily. Branch Clobetasol 2022-0 Yes [id number] Apply to [facility] Propionate 8-10 area(s) 2 ity of 0.05 % 00:00: (two) [place] lotion 00 times Medical daily as Branch needed for Rash or Itching. triamcinolo 2022-0 Yes [id number] Apply to [facility] ne 8-10 area(s) 2 ity of acetonide 00:00: (two) [place] 0.1 % cream 00 times Medical daily. Branch Clobetasol 2022-0 Yes [id number] Apply to [facility] Propionate 8-10 area(s) 2 ity of 0.05 % 00:00: (two) [place] lotion 00 times Medical daily as Branch needed for Rash or Itching. triamcinolo 2022-0 Yes [id number] Apply to [facility] ne 8-10 area(s) 2 ity of acetonide 00:00: (two) [place] 0.1 % cream 00 times Medical daily. Branch Clobetasol 2022-0 Yes [id number] Apply to [facility] Propionate 8-10 area(s) 2 ity of 0.05 % 00:00: (two) [place] lotion 00 times Medical daily as Branch needed for Rash or Itching. triamcinolo 2022-0 Yes [id number] Apply to [facility] ne 8-10 area(s) 2 ity of acetonide 00:00: (two) [place] 0.1 % cream 00 times Medical daily. Branch Clobetasol 2022-0 Yes [id number] Apply to [facility] Propionate 8-10 area(s) 2 ity of 0.05 % 00:00: (two) [place] lotion 00 times Medical daily as Branch needed for Rash or Itching. triamcinolo 2022-0 Yes [id number] Apply to [facility] ne 8-10 area(s) 2 ity of acetonide 00:00: (two) [place] 0.1 % cream 00 times Medical daily. Branch Clobetasol 2022-0 Yes [id number] Apply to [facility] Propionate 8-10 area(s) 2 ity of 0.05 % 00:00: (two) [place] lotion 00 times Medical daily as Branch needed for Rash or Itching. triamcinolo 2022-0 Yes [id number] Apply to [facility] ne 8-10 area(s) 2 ity of acetonide 00:00: (two) [place] 0.1 % cream 00 times Medical daily. Branch Clobetasol 2022-0 Yes [id number] Apply to [facility] Propionate 8-10 area(s) 2 ity of 0.05 % 00:00: (two) [place] lotion 00 times Medical daily as Branch needed for Rash or Itching. triamcinolo 2022-0 Yes [id number] Apply to [facility] ne 8-10 area(s) 2 ity of acetonide 00:00: (two) [place] 0.1 % cream 00 times Medical daily. Branch Clobetasol 2022-0 Yes [id number] Apply to [facility] Propionate 8-10 area(s) 2 ity of 0.05 % 00:00: (two) [place] lotion 00 times Medical daily as Branch needed for Rash or Itching. triamcinolo 2022-0 Yes [id number] Apply to [facility] ne 8-10 area(s) 2 ity of acetonide 00:00: (two) [place] 0.1 % cream 00 times Medical daily. Branch Clobetasol 2022-0 Yes [id number] Apply to [facility] Propionate 8-10 area(s) 2 ity of 0.05 % 00:00: (two) [place] lotion 00 times Medical daily as Branch needed for Rash or Itching. triamcinolo 2022-0 Yes [id number] Apply to [facility] ne 8-10 area(s) 2 ity of acetonide 00:00: (two) [place] 0.1 % cream 00 times Medical daily. Branch Clobetasol 2022-0 Yes [id number] Apply to [facility] Propionate 8-10 area(s) 2 ity of 0.05 % 00:00: (two) [place] lotion 00 times Medical daily as Branch needed for Rash or Itching. triamcinolo 2022-0 Yes [id number] Apply to [facility] ne 8-10 area(s) 2 ity of acetonide 00:00: (two) [place] 0.1 % cream 00 times Medical daily. Branch Clobetasol 2022-0 Yes [id number] Apply to [facility] Propionate 8-10 area(s) 2 ity of 0.05 % 00:00: (two) [place] lotion 00 times Medical daily as Branch needed for Rash or Itching. triamcinolo 2022-0 Yes [id number] Apply to [facility] ne 8-10 area(s) 2 ity of acetonide 00:00: (two) [place] 0.1 % cream 00 times Medical daily. Branch Clobetasol 2022-0 Yes [id number] Apply to [facility] Propionate 8-10 area(s) 2 ity of 0.05 % 00:00: (two) [place] lotion 00 times Medical daily as Branch needed for Rash or Itching. triamcinolo 2022-0 Yes [id number] Apply to [facility] ne 8-10 area(s) 2 ity of acetonide 00:00: (two) [place] 0.1 % cream 00 times Medical daily. Branch Clobetasol 2022-0 Yes [id number] Apply to [facility] Propionate 8-10 area(s) 2 ity of 0.05 % 00:00: (two) [place] lotion 00 times Medical daily as Branch needed for Rash or Itching. triamcinolo 2022-0 Yes [id number] Apply to [facility] ne 8-10 area(s) 2 ity of acetonide 00:00: (two) [place] 0.1 % cream 00 times Medical daily. Branch Clobetasol 2022-0 Yes [id number] Apply to [facility] Propionate 8-10 area(s) 2 ity of 0.05 % 00:00: (two) [place] lotion 00 times Medical daily as Branch needed for Rash or Itching. triamcinolo 2022-0 Yes [id number] Apply to [facility] ne 8-10 area(s) 2 ity of acetonide 00:00: (two) [place] 0.1 % cream 00 times Medical daily. Branch Clobetasol 2022-0 Yes [id number] Apply to [facility] Propionate 8-10 area(s) 2 ity of 0.05 % 00:00: (two) [place] lotion 00 times Medical daily as Branch needed for Rash or Itching. triamcinolo 2022-0 Yes [id number] Apply to [facility] ne 8-10 area(s) 2 ity of acetonide 00:00: (two) [place] 0.1 % cream 00 times Medical daily. Branch Clobetasol 2022-0 Yes [id number] Apply to [facility] Propionate 8-10 area(s) 2 ity of 0.05 % 00:00: (two) [place] lotion 00 times Medical daily as Branch needed for Rash or Itching. triamcinolo 2022-0 Yes [id number] Apply to [facility] ne 8-10 area(s) 2 ity of acetonide 00:00: (two) [place] 0.1 % cream 00 times Medical daily. Branch Clobetasol 2022-0 Yes [id number] Apply to [facility] Propionate 8-10 area(s) 2 ity of 0.05 % 00:00: (two) [place] lotion 00 times Medical daily as Branch needed for Rash or Itching. triamcinolo 2022-0 Yes [id number] Apply to [facility] ne 8-10 area(s) 2 ity of acetonide 00:00: (two) [place] 0.1 % cream 00 times Medical daily. Branch Clobetasol 2022-0 Yes [id number] Apply to [facility] Propionate 8-10 area(s) 2 ity of 0.05 % 00:00: (two) [place] lotion 00 times Medical daily as Branch needed for Rash or Itching. triamcinolo 2022-0 Yes [id number] Apply to [facility] ne 8-10 area(s) 2 ity of acetonide 00:00: (two) [place] 0.1 % cream 00 times Medical daily. Branch Clobetasol 2022-0 Yes [id number] Apply to [facility] Propionate 8-10 area(s) 2 ity of 0.05 % 00:00: (two) [place] lotion 00 times Medical daily as Branch needed for Rash or Itching. triamcinolo 2022-0 Yes [id number] Apply to [facility] ne 8-10 area(s) 2 ity of acetonide 00:00: (two) [place] 0.1 % cream 00 times Medical daily. Branch Clobetasol 2022-0 Yes [id number] Apply to [facility] Propionate 8-10 area(s) 2 ity of 0.05 % 00:00: (two) [place] lotion 00 times Medical daily as Branch needed for Rash or Itching. triamcinolo 2022-0 Yes [id number] Apply to [facility] ne 8-10 area(s) 2 ity of acetonide 00:00: (two) [place] 0.1 % cream 00 times Medical daily. Branch Clobetasol 2022-0 Yes [id number] Apply to [facility] Propionate 8-10 area(s) 2 ity of 0.05 % 00:00: (two) [place] lotion 00 times Medical daily as Branch needed for Rash or Itching. triamcinolo 2022-0 Yes [id number] Apply to [facility] ne 8-10 area(s) 2 ity of acetonide 00:00: (two) [place] 0.1 % cream 00 times Medical daily. Branch Clobetasol 2022-0 Yes [id number] Apply to [facility] Propionate 8-10 area(s) 2 ity of 0.05 % 00:00: (two) [place] lotion 00 times Medical daily as Branch needed for Rash or Itching. triamcinolo 2022-0 Yes [id number] Apply to [facility] ne 8-10 area(s) 2 ity of acetonide 00:00: (two) [place] 0.1 % cream 00 times Medical daily. Branch Clobetasol 2022-0 Yes [id number] Apply to [facility] Propionate 8-10 area(s) 2 ity of 0.05 % 00:00: (two) [place] lotion 00 times Medical daily as Branch needed for Rash or Itching. triamcinolo 2022-0 Yes [id number] Apply to [facility] ne 8-10 area(s) 2 ity of acetonide 00:00: (two) [place] 0.1 % cream 00 times Medical daily. Branch Clobetasol 2022-0 Yes [id number] Apply to [facility] Propionate 8-10 area(s) 2 ity of 0.05 % 00:00: (two) [place] lotion 00 times Medical daily as Branch needed for Rash or Itching. triamcinolo 2022-0 Yes [id number] Apply to [facility] ne 8-10 area(s) 2 ity of acetonide 00:00: (two) [place] 0.1 % cream 00 times Medical daily. Branch Clobetasol 2022-0 Yes [id number] Apply to [facility] Propionate 8-10 area(s) 2 ity of 0.05 % 00:00: (two) [place] lotion 00 times Medical daily as Branch needed for Rash or Itching. triamcinolo 2022-0 Yes [id number] Apply to [facility] ne 8-10 area(s) 2 ity of acetonide 00:00: (two) [place] 0.1 % cream 00 times Medical daily. Branch Clobetasol 2022-0 Yes [id number] Apply to [facility] Propionate 8-10 area(s) 2 ity of 0.05 % 00:00: (two) [place] lotion 00 times Medical daily as Branch needed for Rash or Itching. triamcinolo 2022-0 Yes [id number] Apply to [facility] ne 8-10 area(s) 2 ity of acetonide 00:00: (two) [place] 0.1 % cream 00 times Medical daily. Branch Clobetasol 2022-0 Yes [id number] Apply to [facility] Propionate 8-10 area(s) 2 ity of 0.05 % 00:00: (two) [place] lotion 00 times Medical daily as Branch needed for Rash or Itching. triamcinolo 2022-0 Yes [id number] Apply to [facility] ne 8-10 area(s) 2 ity of acetonide 00:00: (two) [place] 0.1 % cream 00 times Medical daily. Branch Clobetasol 2022-0 Yes [id number] Apply to [facility] Propionate 8-10 area(s) 2 ity of 0.05 % 00:00: (two) [place] lotion 00 times Medical daily as Branch needed for Rash or Itching. triamcinolo 2022-0 Yes [id number] Apply to [facility] ne 8-10 area(s) 2 ity of acetonide 00:00: (two) [place] 0.1 % cream 00 times Medical daily. Branch Clobetasol 2022-0 Yes [id number] Apply to [facility] Propionate 8-10 area(s) 2 ity of 0.05 % 00:00: (two) [place] lotion 00 times Medical daily as Branch needed for Rash or Itching. triamcinolo 2022-0 Yes [id number] Apply to [facility] ne 8-10 area(s) 2 ity of acetonide 00:00: (two) [place] 0.1 % cream 00 times Medical daily. Branch Clobetasol 2022-0 Yes [id number] Apply to [facility] Propionate 8-10 area(s) 2 ity of 0.05 % 00:00: (two) [place] lotion 00 times Medical daily as Branch needed for Rash or Itching. triamcinolo 2022-0 2023- No [id number] Apply to [facility] ne 8-10 07-18 area(s) 2 ity of acetonide 00:00: 00:00 (two) [place] 0.1 % cream 00 :00 times Medical daily. Branch Clobetasol 2-0 2023- No [id number] Apply to [facility] Propionate 8-10 07-18 area(s) 2 ity of 0.05 % 00:00: 00:00 (two) [place] lotion 00 :00 times Medical daily as Branch needed for Rash or Itching. triamcinolo 2-0 2023- No [id number] Apply to [facility] ne 8-10 07-18 area(s) 2 ity of acetonide 00:00: 00:00 (two) [place] 0.1 % cream 00 :00 times Medical daily. Branch Clobetasol 2-0 2023- No [id number] Apply to [facility] Propionate 8-10 07-18 area(s) 2 ity of 0.05 % 00:00: 00:00 (two) [place] lotion 00 :00 times Medical daily as Branch needed for Rash or Itching. fluticasone 2022-0 Yes [id number] 2{spray Use 2 [facility] propionate 8-05 } Sprays in ity of 50 00:00: each [place] mcg/actuati 00 nostril in Me dical on nasal the Branch spray morning. fluticasone 2022-0 Yes [id number] 2{spray Use 2 [facility] propionate 8-05 } Sprays in ity of 50 00:00: each [place] mcg/actuati 00 nostril in Me dical on nasal the Branch spray morning. fluticasone 2021-0 Yes [id number] 2{spray Use 2 [facility] propionate 8-05 } Sprays in ity of 50 00:00: each [place] mcg/actuati 00 nostril in Me dical on nasal the Branch spray morning. fluticasone 2021-0 Yes [id number] 2{spray Use 2 [facility] propionate 8-05 } Sprays in ity of 50 00:00: each [place] mcg/actuati 00 nostril in Me dical on nasal the Branch spray morning. fluticasone 2021-0 Yes [id number] 2{spray Use 2 [facility] propionate 8-05 } Sprays in ity of 50 00:00: each [place] mcg/actuati 00 nostril in Me dical on nasal the Branch spray morning. fluticasone 2021-0 Yes [id number] 2{spray Use 2 [facility] propionate 8-05 } Sprays in ity of 50 00:00: each [place] mcg/actuati 00 nostril in Me dical on nasal the Branch spray morning. fluticasone 2021-0 Yes [id number] 2{spray Use 2 [facility] propionate 8-05 } Sprays in ity of 50 00:00: each [place] mcg/actuati 00 nostril in Me dical on nasal the Branch spray morning. fluticasone 2021-0 Yes [id number] 2{spray Use 2 [facility] propionate 8-05 } Sprays in ity of 50 00:00: each [place] mcg/actuati 00 nostril in Me dical on nasal the Branch spray morning. fluticasone 2021-0 Yes [id number] 2{spray Use 2 [facility] propionate 8-05 } Sprays in ity of 50 00:00: each [place] mcg/actuati 00 nostril in Me dical on nasal the Branch spray morning. fluticasone 2021-0 Yes [id number] 2{spray Use 2 [facility] propionate 8-05 } Sprays in ity of 50 00:00: each [place] mcg/actuati 00 nostril in Me dical on nasal the Branch spray morning. fluticasone 2021-0 Yes [id number] 2{spray Use 2 [facility] propionate 8-05 } Sprays in ity of 50 00:00: each [place] mcg/actuati 00 nostril in Me dical on nasal the Branch spray morning. fluticasone 2021-0 Yes [id number] 2{spray Use 2 [facility] propionate 8-05 } Sprays in ity of 50 00:00: each [place] mcg/actuati 00 nostril in Me dical on nasal the Branch spray morning. fluticasone 2021-0 Yes [id number] 2{spray Use 2 [facility] propionate 8-05 } Sprays in ity of 50 00:00: each [place] mcg/actuati 00 nostril in Me dical on nasal the Branch spray morning. fluticasone 2021-0 Yes [id number] 2{spray Use 2 [facility] propionate 8-05 } Sprays in ity of 50 00:00: each [place] mcg/actuati 00 nostril in Me dical on nasal the Branch spray morning. fluticasone 2021-0 Yes [id number] 2{spray Use 2 [facility] propionate 8-05 } Sprays in ity of 50 00:00: each [place] mcg/actuati 00 nostril in Me dical on nasal the Branch spray morning. fluticasone 2021-0 Yes [id number] 2{spray Use 2 [facility] propionate 8-05 } Sprays in ity of 50 00:00: each [place] mcg/actuati 00 nostril in Me dical on nasal the Branch spray morning. fluticasone 2021-0 Yes [id number] 2{spray Use 2 [facility] propionate 8-05 } Sprays in ity of 50 00:00: each [place] mcg/actuati 00 nostril in Me dical on nasal the Branch spray morning. fluticasone 2021-0 Yes [id number] 2{spray Use 2 [facility] propionate 8-05 } Sprays in ity of 50 00:00: each [place] mcg/actuati 00 nostril in Me dical on nasal the Branch spray morning. fluticasone 2021-0 Yes [id number] 2{spray Use 2 [facility] propionate 8-05 } Sprays in ity of 50 00:00: each [place] mcg/actuati 00 nostril in Me dical on nasal the Branch spray morning. fluticasone 2021-0 Yes [id number] 2{spray Use 2 [facility] propionate 8-05 } Sprays in ity of 50 00:00: each [place] mcg/actuati 00 nostril in Me dical on nasal the Branch spray morning. fluticasone 2022-0 Yes [id number] 2{spray Use 2 [facility] propionate 8-05 } Sprays in ity of 50 00:00: each [place] mcg/actuati 00 nostril in Me dical on nasal the Branch spray morning. fluticasone 0 Yes [id number] 2{spray Use 2 [facility] propionate 8-05 } Sprays in ity of 50 00:00: each [place] mcg/actuati 00 nostril in Me dical on nasal the Branch spray morning. fluticasone 0 Yes [id number] 2{spray Use 2 [facility] propionate 8-05 } Sprays in ity of 50 00:00: each [place] mcg/actuati 00 nostril in Me dical on nasal the Branch spray morning. fluticasone 0 Yes [id number] 2{spray Use 2 [facility] propionate 8-05 } Sprays in ity of 50 00:00: each [place] mcg/actuati 00 nostril in Me dical on nasal the Branch spray morning. fluticasone Yes [id number] 2{spray Use 2 [facility] propionate 8-05 } Sprays in ity of 50 00:00: each [place] mcg/actuati 00 nostril in Me dical on nasal the Branch spray morning. fluticasone 0 Yes [id number] 2{spray Use 2 [facility] propionate 8-05 } Sprays in ity of 50 00:00: each [place] mcg/actuati 00 nostril in Me dical on nasal the Branch spray morning. fluticasone 0 Yes [id number] 2{spray Use 2 [facility] propionate 8-05 } Sprays in ity of 50 00:00: each [place] mcg/actuati 00 nostril in Me dical on nasal the Branch spray morning. fluticasone 0 Yes [id number] 2{spray Use 2 [facility] propionate 8-05 } Sprays in ity of 50 00:00: each [place] mcg/actuati 00 nostril in Me dical on nasal the Branch spray morning. fluticasone 0 Yes [id number] 2{spray Use 2 [facility] propionate 8-05 } Sprays in ity of 50 00:00: each [place] mcg/actuati 00 nostril in Me dical on nasal the Branch spray morning. fluticasone 0 Yes [id number] 2{spray Use 2 [facility] propionate 8-05 } Sprays in ity of 50 00:00: each [place] mcg/actuati 00 nostril in Me dical on nasal the Branch spray morning. fluticasone 0 Yes [id number] 2{spray Use 2 [facility] propionate 8-05 } Sprays in ity of 50 00:00: each [place] mcg/actuati 00 nostril in Me dical on nasal the Branch spray morning. fluticasone Yes [id number] 2{spray Use 2 [facility] propionate 8-05 } Sprays in ity of 50 00:00: each [place] mcg/actuati 00 nostril in Me dical on nasal the Branch spray morning. fluticasone Yes [id number] 2{spray Use 2 [facility] propionate 8-05 } Sprays in ity of 50 00:00: each [place] mcg/actuati 00 nostril in Me dical on nasal the Branch spray morning. fluticasone Yes [id number] 2{spray Use 2 [facility] propionate 8-05 } Sprays in ity of 50 00:00: each [place] mcg/actuati 00 nostril in Me dical on nasal the Branch spray morning. fluticasone 0 Yes [id number] 2{spray Use 2 [facility] propionate 8-05 } Sprays in ity of 50 00:00: each [place] mcg/actuati 00 nostril in Me dical on nasal the Branch spray morning. fluticasone 0 Yes [id number] 2{spray Use 2 [facility] propionate 8-05 } Sprays in ity of 50 00:00: each [place] mcg/actuati 00 nostril in Me dical on nasal the Branch spray morning. fluticasone 0 Yes [id number] 2{spray Use 2 [facility] propionate 8-05 } Sprays in ity of 50 00:00: each [place] mcg/actuati 00 nostril in Me dical on nasal the Branch spray morning. fluticasone 0 Yes [id number] 2{spray Use 2 [facility] propionate 8-05 } Sprays in ity of 50 00:00: each [place] mcg/actuati 00 nostril in Me dical on nasal the Branch spray morning. fluticasone Yes [id number] 2{spray Use 2 [facility] propionate 8-05 } Sprays in ity of 50 00:00: each [place] mcg/actuati 00 nostril in Me dical on nasal the Branch spray morning. fluticasone 2021-0 Yes [id number] 2{spray Use 2 [facility] propionate 8-05 } Sprays in ity of 50 00:00: each [place] mcg/actuati 00 nostril in Me dical on nasal the Branch spray morning. fluticasone 2021-0 Yes [id number] 2{spray Use 2 [facility] propionate 8-05 } Sprays in ity of 50 00:00: each [place] mcg/actuati 00 nostril in Me dical on nasal the Branch spray morning. fluticasone 2021-0 Yes [id number] 2{spray Use 2 [facility] propionate 8-05 } Sprays in ity of 50 00:00: each [place] mcg/actuati 00 nostril in Me dical on nasal the Branch spray morning. fluticasone 2021-0 Yes [id number] 2{spray Use 2 [facility] propionate 8-05 } Sprays in ity of 50 00:00: each [place] mcg/actuati 00 nostril in Me dical on nasal the Branch spray morning. fluticasone 2021-0 Yes [id number] 2{spray Use 2 [facility] propionate 8-05 } Sprays in ity of 50 00:00: each [place] mcg/actuati 00 nostril in Me dical on nasal the Branch spray morning. fluticasone 2021-0 Yes [id number] 2{spray Use 2 [facility] propionate 8-05 } Sprays in ity of 50 00:00: each [place] mcg/actuati 00 nostril in Me dical on nasal the Branch spray morning. fluticasone 2021-0 Yes [id number] 2{spray Use 2 [facility] propionate 8-05 } Sprays in ity of 50 00:00: each [place] mcg/actuati 00 nostril in Me dical on nasal the Branch spray morning. fluticasone 2021-0 Yes [id number] 2{spray Use 2 [facility] propionate 8-05 } Sprays in ity of 50 00:00: each [place] mcg/actuati 00 nostril in Me dical on nasal the Branch spray morning. fluticasone 2021-0 Yes [id number] 2{spray Use 2 [facility] propionate 8-05 } Sprays in ity of 50 00:00: each [place] mcg/actuati 00 nostril in Me dical on nasal the Branch spray morning. fluticasone 2021-0 Yes [id number] 2{spray Use 2 [facility] propionate 8-05 } Sprays in ity of 50 00:00: each [place] mcg/actuati 00 nostril in Me dical on nasal the Branch spray morning. fluticasone 2021-0 Yes [id number] 2{spray Use 2 [facility] propionate 8-05 } Sprays in ity of 50 00:00: each [place] mcg/actuati 00 nostril in Me dical on nasal the Branch spray morning. fluticasone 2021-0 Yes [id number] 2{spray Use 2 [facility] propionate 8-05 } Sprays in ity of 50 00:00: each [place] mcg/actuati 00 nostril in Me dical on nasal the Branch spray morning. fluticasone 2021-0 Yes [id number] 2{spray Use 2 [facility] propionate 8-05 } Sprays in ity of 50 00:00: each [place] mcg/actuati 00 nostril in Me dical on nasal the Branch spray morning. fluticasone 2021-0 Yes [id number] 2{spray Use 2 [facility] propionate 8-05 } Sprays in ity of 50 00:00: each [place] mcg/actuati 00 nostril in Me dical on nasal the Branch spray morning. fluticasone 2021-0 Yes [id number] 2{spray Use 2 [facility] propionate 8-05 } Sprays in ity of 50 00:00: each [place] mcg/actuati 00 nostril in Me dical on nasal the Branch spray morning. fluticasone 2021-0 Yes [id number] 2{spray Use 2 [facility] propionate 8-05 } Sprays in ity of 50 00:00: each [place] mcg/actuati 00 nostril in Me dical on nasal the Branch spray morning. fluticasone 2021-0 Yes [id number] 2{spray Use 2 [facility] propionate 8-05 } Sprays in ity of 50 00:00: each [place] mcg/actuati 00 nostril in Me dical on nasal the Branch spray morning. fluticasone 2021-0 Yes [id number] 2{spray Use 2 [facility] propionate 8-05 } Sprays in ity of 50 00:00: each [place] mcg/actuati 00 nostril in Me dical on nasal the Branch spray morning. fluticasone 2021-0 Yes [id number] 2{spray Use 2 [facility] propionate 8-05 } Sprays in ity of 50 00:00: each [place] mcg/actuati 00 nostril in Me dical on nasal the Branch spray morning. fluticasone 2021-0 Yes [id number] 2{spray Use 2 [facility] propionate 8-05 } Sprays in ity of 50 00:00: each [place] mcg/actuati 00 nostril in Me dical on nasal the Branch spray morning. fluticasone 2021-0 Yes [id number] 2{spray Use 2 [facility] propionate 8-05 } Sprays in ity of 50 00:00: each [place] mcg/actuati 00 nostril in Me dical on nasal the Branch spray morning. fluticasone 2021-0 Yes [id number] 2{spray Use 2 [facility] propionate 8-05 } Sprays in ity of 50 00:00: each [place] mcg/actuati 00 nostril in Me dical on nasal the Branch spray morning. fluticasone 2021-0 Yes [id number] 2{spray Use 2 [facility] propionate 8-05 } Sprays in ity of 50 00:00: each [place] mcg/actuati 00 nostril in Me dical on nasal the Branch spray morning. fluticasone 2021-0 Yes [id number] 2{spray Use 2 [facility] propionate 8-05 } Sprays in ity of 50 00:00: each [place] mcg/actuati 00 nostril in Me dical on nasal the Branch spray morning. fluticasone 2021-0 Yes [id number] 2{spray Use 2 [facility] propionate 8-05 } Sprays in ity of 50 00:00: each [place] mcg/actuati 00 nostril in Me dical on nasal the Branch spray morning. fluticasone 2021-0 Yes [id number] 2{spray Use 2 [facility] propionate 8-05 } Sprays in ity of 50 00:00: each [place] mcg/actuati 00 nostril in Me dical on nasal the Branch spray morning. fluticasone 2021-0 Yes [id number] 2{spray Use 2 [facility] propionate 8-05 } Sprays in ity of 50 00:00: each [place] mcg/actuati 00 nostril in Me dical on nasal the Branch spray morning. fluticasone 2021-0 Yes [id number] 2{spray Use 2 [facility] propionate 8-05 } Sprays in ity of 50 00:00: each [place] mcg/actuati 00 nostril in Me dical on nasal the Branch spray morning. fluticasone 2021-0 Yes [id number] 2{spray Use 2 [facility] propionate 8-05 } Sprays in ity of 50 00:00: each [place] mcg/actuati 00 nostril in Me dical on nasal the Branch spray morning. fluticasone 2021-0 Yes [id number] 2{spray Use 2 [facility] propionate 8-05 } Sprays in ity of 50 00:00: each [place] mcg/actuati 00 nostril in Me dical on nasal the Branch spray morning. fluticasone 2021-0 Yes [id number] 2{spray Use 2 [facility] propionate 8-05 } Sprays in ity of 50 00:00: each [place] mcg/actuati 00 nostril in Me dical on nasal the Branch spray morning. fluticasone 2021-0 Yes [id number] 2{spray Use 2 [facility] propionate 8-05 } Sprays in ity of 50 00:00: each [place] mcg/actuati 00 nostril in Me dical on nasal the Branch spray morning. fluticasone 2021-0 Yes [id number] 2{spray Use 2 [facility] propionate 8-05 } Sprays in ity of 50 00:00: each [place] mcg/actuati 00 nostril in Me dical on nasal the Branch spray morning. fluticasone 2021-0 Yes [id number] 2{spray Use 2 [facility] propionate 8-05 } Sprays in ity of 50 00:00: each [place] mcg/actuati 00 nostril in Me dical on nasal the Branch spray morning. fluticasone 2021-0 Yes [id number] 2{spray Use 2 [facility] propionate 8-05 } Sprays in ity of 50 00:00: each [place] mcg/actuati 00 nostril in Me dical on nasal the Branch spray morning. fluticasone 2021-0 Yes [id number] 2{spray Use 2 [facility] propionate 8-05 } Sprays in ity of 50 00:00: each [place] mcg/actuati 00 nostril in Me dical on nasal the Branch spray morning. fluticasone 2021-0 Yes [id number] 2{spray Use 2 [facility] propionate 8-05 } Sprays in ity of 50 00:00: each [place] mcg/actuati 00 nostril in Me dical on nasal the Branch spray morning. fluticasone 2021-0 Yes [id number] 2{spray Use 2 [facility] propionate 8-05 } Sprays in ity of 50 00:00: each [place] mcg/actuati 00 nostril in Me dical on nasal the Branch spray morning. fluticasone 2021-0 Yes [id number] 2{spray Use 2 [facility] propionate 8-05 } Sprays in ity of 50 00:00: each [place] mcg/actuati 00 nostril in Me dical on nasal the Branch spray morning. fluticasone 2021-0 Yes [id number] 2{spray Use 2 [facility] propionate 8-05 } Sprays in ity of 50 00:00: each [place] mcg/actuati 00 nostril in Me dical on nasal the Branch spray morning. fluticasone 2021-0 Yes [id number] 2{spray Use 2 [facility] propionate 8-05 } Sprays in ity of 50 00:00: each [place] mcg/actuati 00 nostril in Me dical on nasal the Branch spray morning. fluticasone 2021-0 Yes [id number] 2{spray Use 2 [facility] propionate 8-05 } Sprays in ity of 50 00:00: each [place] mcg/actuati 00 nostril in Me dical on nasal the Branch spray morning. fluticasone 2021-0 Yes [id number] 2{spray Use 2 [facility] propionate 8-05 } Sprays in ity of 50 00:00: each [place] mcg/actuati 00 nostril in Me dical on nasal the Branch spray morning. fluticasone 2021-0 Yes [id number] 2{spray Use 2 [facility] propionate 8-05 } Sprays in ity of 50 00:00: each [place] mcg/actuati 00 nostril in Me dical on nasal the Branch spray morning. fluticasone 2021-0 Yes [id number] 2{spray Use 2 [facility] propionate 8-05 } Sprays in ity of 50 00:00: each [place] mcg/actuati 00 nostril in Me dical on nasal the Branch spray morning. fluticasone 0 Yes [id number] 2{spray Use 2 [facility] propionate 8-05 } Sprays in ity of 50 00:00: each [place] mcg/actuati 00 nostril in Me dical on nasal the Branch spray morning. fluticasone 2021-0 Yes [id number] 2{spray Use 2 [facility] propionate 8-05 } Sprays in ity of 50 00:00: each [place] mcg/actuati 00 nostril in Me dical on nasal the Branch spray morning. fluticasone 0 Yes [id number] 2{spray Use 2 [facility] propionate 8-05 } Sprays in ity of 50 00:00: each [place] mcg/actuati 00 nostril in Me dical on nasal the Branch spray morning. fluticasone 0 Yes [id number] 2{spray Use 2 [facility] propionate 8-05 } Sprays in ity of 50 00:00: each [place] mcg/actuati 00 nostril in Me dical on nasal the Branch spray morning. fluticasone 2021-0 Yes [id number] 2{spray Use 2 [facility] propionate 8-05 } Sprays in ity of 50 00:00: each [place] mcg/actuati 00 nostril in Me dical on nasal the Branch spray morning. fluticasone 2021-0 Yes [id number] 2{spray Use 2 [facility] propionate 8-05 } Sprays in ity of 50 00:00: each [place] mcg/actuati 00 nostril in Me dical on nasal the Branch spray morning. fluticasone 2021-0 Yes [id number] 2{spray Use 2 [facility] propionate 8-05 } Sprays in ity of 50 00:00: each [place] mcg/actuati 00 nostril in Me dical on nasal the Branch spray morning. fluticasone 2021-0 Yes [id number] 2{spray Use 2 [facility] propionate 8-05 } Sprays in ity of 50 00:00: each [place] mcg/actuati 00 nostril in Me dical on nasal the Branch spray morning. fluticasone 2021-0 Yes [id number] 2{spray Use 2 [facility] propionate 8-05 } Sprays in ity of 50 00:00: each [place] mcg/actuati 00 nostril in Me dical on nasal the Branch spray morning. fluticasone 0 Yes [id number] 2{spray Use 2 [facility] propionate 8-05 } Sprays in ity of 50 00:00: each [place] mcg/actuati 00 nostril in Me dical on nasal the Branch spray morning. fluticasone 0 Yes [id number] 2{spray Use 2 [facility] propionate 8-05 } Sprays in ity of 50 00:00: each [place] mcg/actuati 00 nostril in Me dical on nasal the Branch spray morning. fluticasone 0 Yes [id number] 2{spray Use 2 [facility] propionate 8-05 } Sprays in ity of 50 00:00: each [place] mcg/actuati 00 nostril in Me dical on nasal the Branch spray morning. fluticasone 0 Yes [id number] 2{spray Use 2 [facility] propionate 8-05 } Sprays in ity of 50 00:00: each [place] mcg/actuati 00 nostril in Me dical on nasal the Branch spray morning. fluticasone 2021-0 Yes [id number] 2{spray Use 2 [facility] propionate 8-05 } Sprays in ity of 50 00:00: each [place] mcg/actuati 00 nostril in Me dical on nasal the Branch spray morning. fluticasone 2021-0 Yes [id number] 2{spray Use 2 [facility] propionate 8-05 } Sprays in ity of 50 00:00: each [place] mcg/actuati 00 nostril in Me dical on nasal the Branch spray morning. fluticasone 2021-0 Yes [id number] 2{spray Use 2 [facility] propionate 8-05 } Sprays in ity of 50 00:00: each [place] mcg/actuati 00 nostril in Me dical on nasal the Branch spray morning. fluticasone 2021-0 Yes [id number] 2{spray Use 2 [facility] propionate 8-05 } Sprays in ity of 50 00:00: each [place] mcg/actuati 00 nostril in Me dical on nasal the Branch spray morning. fluticasone 2021-0 Yes [id number] 2{spray Use 2 [facility] propionate 8-05 } Sprays in ity of 50 00:00: each [place] mcg/actuati 00 nostril in Me dical on nasal the Branch spray morning. fluticasone 2021-0 Yes [id number] 2{spray Use 2 [facility] propionate 8-05 } Sprays in ity of 50 00:00: each [place] mcg/actuati 00 nostril in Me dical on nasal the Branch spray morning. fluticasone 2021-0 Yes [id number] 2{spray Use 2 [facility] propionate 8-05 } Sprays in ity of 50 00:00: each [place] mcg/actuati 00 nostril in Me dical on nasal the Branch spray morning. fluticasone 2021-0 Yes [id number] 2{spray Use 2 [facility] propionate 8-05 } Sprays in ity of 50 00:00: each [place] mcg/actuati 00 nostril in Me dical on nasal the Branch spray morning. fluticasone 2021-0 Yes [id number] 2{spray Use 2 [facility] propionate 8-05 } Sprays in ity of 50 00:00: each [place] mcg/actuati 00 nostril in Me dical on nasal the Branch spray morning. fluticasone 2021-0 Yes [id number] 2{spray Use 2 [facility] propionate 8-05 } Sprays in ity of 50 00:00: each [place] mcg/actuati 00 nostril in Me dical on nasal the Branch spray morning. fluticasone 2021-0 Yes [id number] 2{spray Use 2 [facility] prop[facility] 8-05 } Sprays in ity of 50 00:00: each [place] mcg/actuati 00 nostril in Me dical on nasal the [facility] spray morning. fluticasone 2021-0 Yes [id number] 2{spray Use 2 [facility] prop[facility] 8-05 } Sprays in ity of 50 00:00: each [place] mcg/actuati 00 nostril in Me dical on nasal the [facility] spray morning. fluticasone 2021-0 Yes [id number] 2{spray Use 2 [facility] prop[facility] 8-05 } Sprays in ity of 50 00:00: each [place] mcg/actuati 00 nostril in Me dical on nasal the Branch spray morning. fluticasone 2021-0 Yes [id number] 2{spray Use 2 [facility] prop[facility] 8-05 } Sprays in ity of 50 00:00: each [place] mcg/actuati 00 nostril in Me dical on nasal the [facility] spray morning. fluticasone 2021-0 Yes [id number] 2{spray Use 2 [facility] propionate 8-05 } Sprays in ity of 50 00:00: each [place] mcg/actuati 00 nostril in Me dical on nasal the Branch spray morning. fluticasone 2021-0 Yes [id number] 2{spray Use 2 [facility] propionate 8-05 } Sprays in ity of 50 00:00: each [place] mcg/actuati 00 nostril in Me dical on nasal the Branch spray morning. fluticasone 2021-0 Yes [id number] 2{spray Use 2 [facility] propionate 8-05 } Sprays in ity of 50 00:00: each [place] mcg/actuati 00 nostril in Me dical on nasal the Branch spray morning. fluticasone 2021-0 Yes [id number] 2{spray Use 2 [facility] propionate 8-05 } Sprays in ity of 50 00:00: each [place] mcg/actuati 00 nostril in Me dical on nasal the Branch spray morning. fluticasone 2021-0 Yes [id number] 2{spray Use 2 [facility] propionate 8-05 } Sprays in ity of 50 00:00: each [place] mcg/actuati 00 nostril in Me dical on nasal the Branch spray morning. fluticasone 2021-0 Yes [id number] 2{spray Use 2 [facility] propionate 8-05 } Sprays in ity of 50 00:00: each [place] mcg/actuati 00 nostril in Me dical on nasal the Branch spray morning. fluticasone 2021-0 Yes [id number] 2{spray Use 2 [facility] propionate 8-05 } Sprays in ity of 50 00:00: each [place] mcg/actuati 00 nostril in Me dical on nasal the Branch spray morning. fluticasone 2021-0 Yes [id number] 2{spray Use 2 [facility] propionate 8-05 } Sprays in ity of 50 00:00: each [place] mcg/actuati 00 nostril in Me dical on nasal the Branch spray morning. fluticasone 2021-0 Yes [id number] 2{spray Use 2 [facility] propionate 8-05 } Sprays in ity of 50 00:00: each [place] mcg/actuati 00 nostril in Me dical on nasal the Branch spray morning. fluticasone 2022-0 Yes [id number] 2{spray Use 2 [facility] propionate 8-05 } Sprays in ity of 50 00:00: each [place] mcg/actuati 00 nostril in Me dical on nasal the Branch spray morning. fluticasone 0 Yes [id number] 2{spray Use 2 [facility] propionate 8-05 } Sprays in ity of 50 00:00: each [place] mcg/actuati 00 nostril in Me dical on nasal the Branch spray morning. fluticasone 0 Yes [id number] 2{spray Use 2 [facility] propionate 8-05 } Sprays in ity of 50 00:00: each [place] mcg/actuati 00 nostril in Me dical on nasal the Branch spray morning. fluticasone 0 Yes [id number] 2{spray Use 2 [facility] propionate 8-05 } Sprays in ity of 50 00:00: each [place] mcg/actuati 00 nostril in Me dical on nasal the Branch spray morning. fluticasone Yes [id number] 2{spray Use 2 [facility] propionate 8-05 } Sprays in ity of 50 00:00: each [place] mcg/actuati 00 nostril in Me dical on nasal the Branch spray morning. fluticasone 0 Yes [id number] 2{spray Use 2 [facility] propionate 8-05 } Sprays in ity of 50 00:00: each [place] mcg/actuati 00 nostril in Me dical on nasal the Branch spray morning. fluticasone 0 Yes [id number] 2{spray Use 2 [facility] propionate 8-05 } Sprays in ity of 50 00:00: each [place] mcg/actuati 00 nostril in Me dical on nasal the Branch spray morning. fluticasone 0 Yes [id number] 2{spray Use 2 [facility] propionate 8-05 } Sprays in ity of 50 00:00: each [place] mcg/actuati 00 nostril in Me dical on nasal the Branch spray morning. fluticasone 0 Yes [id number] 2{spray Use 2 [facility] propionate 8-05 } Sprays in ity of 50 00:00: each [place] mcg/actuati 00 nostril in Me dical on nasal the Branch spray morning. fluticasone Yes [id number] 2{spray Use 2 [facility] propionate 8-05 } Sprays in ity of 50 00:00: each [place] mcg/actuati 00 nostril in Me dical on nasal the Branch spray morning. fluticasone Yes [id number] 2{spray Use 2 [facility] propionate 8-05 } Sprays in ity of 50 00:00: each [place] mcg/actuati 00 nostril in Me dical on nasal the Branch spray morning. fluticasone Yes [id number] 2{spray Use 2 [facility] propionate 8-05 } Sprays in ity of 50 00:00: each [place] mcg/actuati 00 nostril in Me dical on nasal the Branch spray morning. fluticasone Yes [id number] 2{spray Use 2 [facility] propionate 8-05 } Sprays in ity of 50 00:00: each [place] mcg/actuati 00 nostril in Me dical on nasal the Branch spray morning. fluticasone Yes [id number] 2{spray Use 2 [facility] propionate 8-05 } Sprays in ity of 50 00:00: each [place] mcg/actuati 00 nostril in Me dical on nasal the Branch spray morning. fluticasone Yes [id number] 2{spray Use 2 [facility] propionate 8-05 } Sprays in ity of 50 00:00: each [place] mcg/actuati 00 nostril in Me dical on nasal the Branch spray morning. fluticasone Yes [id number] 2{spray Use 2 [facility] propionate 8-05 } Sprays in ity of 50 00:00: each [place] mcg/actuati 00 nostril in Me dical on nasal the Branch spray morning. doxepin 25 0 Yes [id number] 25mg Take 1 [facility] mg capsule 8-03 capsule by ity of 00:00: mouth at [place] 00 bedtime. [facility] Branch doxepin 25 0 Yes [id number] 25mg Take 1 [facility] mg capsule 8-03 capsule by ity of 00:00: mouth at [place] 00 bedtime. Medical Branch doxepin 25 0 Yes [id number] 25mg Take 1 [facility] mg capsule 8-03 capsule by ity of 00:00: mouth at [place] 00 bedtime. [facility] Branch doxepin 25 2021-0 Yes [id number] 25mg Take 1 [facility] mg capsule 8-03 capsule by ity of 00:00: mouth at [place] 00 bedtime. [facility] Branch doxepin Yes [id number] 25mg Take 1 [facility] mg capsule 8-03 capsule by ity of 00:00: mouth at [place] 00 bedtime. Medical Branch doxepin Yes [id number] 25mg Take 1 [facility] mg capsule 8-03 capsule by ity of 00:00: mouth at [place] 00 bedtime. Medical Branch doxepin Yes [id number] 25mg Take 1 [facility] mg capsule 8-03 capsule by ity of 00:00: mouth at [place] [address] bedtime. Medical Branch doxepin Yes [id number] 25mg Take 1 [facility] mg capsule 8-03 capsule by ity of 00:00: mouth at [place] [address] bedtime. Medical Branch doxepin Yes [id number] 25mg Take 1 [facility] mg capsule 8-03 capsule by ity of 00:00: mouth at [place] [address] bedtime. Medical Branch doxepin Yes [id number] 25mg Take 1 [facility] mg capsule 8-03 capsule by ity of 00:00: mouth at [place] [address] bedtime. Medical Branch doxepin Yes [id number] 25mg Take 1 [facility] mg capsule 8-03 capsule by ity of 00:00: mouth at [place] [address] bedtime. Medical Branch doxepin Yes [id number] 25mg Take 1 [facility] mg capsule 8-03 capsule by ity of 00:00: mouth at [place] [address] bedtime. Medical Branch doxepin Yes [id number] 25mg Take 1 [facility] mg capsule 8-03 capsule by ity of 00:00: mouth at [place] [address] bedtime. Medical Branch doxepin Yes [id number] 25mg Take 1 [facility] mg capsule 8-03 capsule by ity of 00:00: mouth at [place] [address] bedtime. Medical Branch doxepin Yes [id number] 25mg Take 1 [facility] mg capsule 8-03 capsule by ity of 00:00: mouth at [place] [address] bedtime. Medical Branch doxepin Yes [id number] 25mg Take 1 [facility] mg capsule 8-03 capsule by ity of 00:00: mouth at [place] [address] bedtime. Medical Branch doxepin Yes [id number] 25mg Take 1 [facility] mg capsule 8-03 capsule by ity of 00:00: mouth at [place] [address] bedtime. Medical Branch doxepin Yes [id number] 25mg Take 1 [facility] mg capsule 8-03 capsule by ity of 00:00: mouth at [place] [address] bedtime. Medical Branch doxepin Yes [id number] 25mg Take 1 [facility] mg capsule 8-03 capsule by ity of 00:00: mouth at [place] [address] bedtime. Medical Branch doxepin Yes [id number] 25mg Take 1 [facility] mg capsule 8-03 capsule by ity of 00:00: mouth at [place] [address] bedtime. Medical Branch doxepin Yes [id number] 25mg Take 1 [facility] mg capsule 8-03 capsule by ity of 00:00: mouth at [place] [address] bedtime. Medical Branch doxepin Yes [id number] 25mg Take 1 [facility] mg capsule 8-03 capsule by ity of 00:00: mouth at [place] [address] bedtime. Medical Branch doxepin Yes [id number] 25mg Take 1 [facility] mg capsule 8-03 capsule by ity of 00:00: mouth at [place] [address] bedtime. Medical Branch doxepin Yes [id number] 25mg Take 1 [facility] mg capsule 8-03 capsule by ity of 00:00: mouth at [place] [address] bedtime. Medical Branch doxepin Yes [id number] 25mg Take 1 [facility] mg capsule 8-03 capsule by ity of 00:00: mouth at [place] [address] bedtime. Medical Branch doxepin Yes [id number] 25mg Take 1 [facility] mg capsule 8-03 capsule by ity of 00:00: mouth at [place] [address] bedtime. Medical Branch doxepin Yes [id number] 25mg Take 1 [facility] mg capsule 8-03 capsule by ity of 00:00: mouth at [place] [address] bedtime. Medical Branch doxepin Yes [id number] 25mg Take 1 [facility] mg capsule 8-03 capsule by ity of 00:00: mouth at [place] 00 bedtime. Medical Branch doxepin 25 0 Yes [id number] 25mg Take 1 [facility] mg capsule 8-03 capsule by ity of 00:00: mouth at [place] 00 bedtime. Medical Branch doxepin 25 2021-0 Yes [id number] 25mg Take 1 [facility] mg capsule 8-03 capsule by ity of 00:00: mouth at [place] 00 bedtime. Medical Branch doxepin 25 0 2021- No [id number] 25mg Take 1 [facility] mg capsule 8- 11-08 capsule by it y of 00:00: 00:00 mouth at [place] 00 :00 bedtime. Medical Branch benzonatate 0 Yes [id number] 100mg Take 1 [facility] (TESSALON 7-29 capsule [...] in the Branch evening. benzonatate 2021-0 Yes [id number] 100mg Take 1 [facility] (TESSALON 7-29 capsule [...] in the Branch evening. benzonatate 2021-0 Yes [id number] 100mg Take 1 [facility] (TESSALON 7-29 capsule by [place]) 100 00:00: mouth [place] mg capsule 00 [...] in the Branch evening. benzonatate 2022-0 Yes [id number] 100mg Take 1 [facility] (TESSALON 7-29 capsule [...] in the Branch evening. benzonatate 2022-0 Yes [id number] 100mg Take 1 [facility] (TESSALON 7-29 capsule by [place]) 100 00:00: mouth [place] mg capsule 00 [...] in the Branch evening. benzonatate 2022-0 Yes [id number] 100mg Take 1 [facility] (TESSALON 7-29 capsule by itrohan of PERLDipJar) 100 00:00: mouth [place] mg capsule 00 [...] in the Branch evening. benzonatate 2022-0 Yes [id number] 100mg Take 1 [facility] (TESSALON 7-29 capsule by ity of PERLDipJar) 100 00:00: mouth [place] mg capsule 00 [...] in the Branch evening. benzonatate 2022-0 Yes [id number] 100mg Take 1 [facility] (TESSALON 7-29 capsule [...] in the Branch evening. benzonatate 2022-0 Yes [id number] 100mg Take 1 [facility] (TESSALON 7-29 capsule [...] in the Branch evening. benzonatate 2022-0 Yes [id number] 100mg Take 1 [facility] (TESSALON 7-29 capsule by ity of PERLDipJar) 100 00:00: mouth [place] mg capsule 00 [...] in the Branch evening. benzonatate 2022-0 Yes [id number] 100mg Take 1 [facility] (TESSALON 7-29 capsule [...] in the Branch evening. benzonatate 2022-0 Yes [id number] 100mg Take 1 [facility] (TESSALON 7-29 capsule [...] in the Branch evening. benzonatate 2022-0 Yes [id number] 100mg Take 1 [facility] (TESSALON 7-29 capsule [...] in the Branch evening. benzonatate 2022-0 Yes [id number] 100mg Take 1 [facility] (TESSALON 7-29 capsule by ity of PERLDipJar) 100 00:00: mouth [place] mg capsule 00 [...] in the Branch evening. benzonatate 2022-0 Yes [id number] 100mg Take 1 [facility] (TESSALON 7-29 capsule by ity of PERLES) 100 00:00: mouth [place] mg capsule 00 every 8 Medica l (eight) Branch hours as needed for Cough. benzonatate 2021-0 Yes [id number] 100mg Take 1 [facility] (TESSALON 7-29 capsule by ity of PERLES) 100 00:00: mouth [place] mg capsule 00 every 8 Medica l (eight) Branch hours as needed for Cough. benzonatate 2021-0 Yes [id number] 100mg Take 1 [facility] (TESSALON 7-29 capsule by ity of PERLES) 100 00:00: mouth [place] mg capsule 00 every 8 Medica l (eight) Branch hours as needed for Cough. benzonatate 2021-0 Yes [id number] 100mg Take 1 [facility] (TESSALON 7-29 capsule by ity of PERLES) 100 00:00: mouth [place] mg capsule 00 every 8 Medica l (eight) Branch hours as needed for Cough. benzonatate 2021-0 Yes [id number] 100mg Take 1 [facility] (TESSALON 7-29 capsule by ity of PERLES) 100 00:00: mouth [place] mg capsule 00 every 8 Medica l (eight) Branch hours as needed for Cough. benzonatate 2021-0 Yes [id number] 100mg Take 1 [facility] (TESSALON 7-29 capsule by ity of PERLES) 100 00:00: mouth [place] mg capsule 00 every 8 Medica l (eight) Branch hours as needed for Cough. benzonatate 2021-0 Yes [id number] 100mg Take 1 [facility] (TESSALON 7-29 capsule by ity of PERLES) 100 00:00: mouth [place] mg capsule 00 every 8 Medica l (eight) Branch hours as needed for Cough. benzonatate 2021-0 Yes [id number] 100mg Take 1 [facility] (TESSALON 7-29 capsule by ity of PERLES) 100 00:00: mouth [place] mg capsule 00 every 8 Medica l (eight) Branch hours as needed for Cough. benzonatate 2021-0 Yes [id number] 100mg Take 1 [facility] (TESSALON 7-29 capsule by ity of PERLES) 100 00:00: mouth [place] mg capsule 00 every 8 Medica l (eight) Branch hours as needed for Cough. benzonatate 2021-0 Yes [id number] 100mg Take 1 [facility] (TESSALON 7-29 capsule by ity of PERLES) 100 00:00: mouth [place] mg capsule 00 every 8 Medica l (eight) Branch hours as needed for Cough. benzonatate 2021-0 Yes [id number] 100mg Take 1 [facility] (TESSALON 7-29 capsule by itrohan of BRAD) 100 00:00: mouth [place] mg capsule 00 every 8 Medica l (eight) Branch hours as needed for Cough. benzonatate 2021-0 Yes [id number] 100mg Take 1 [facility] (TESSALON 7-29 capsule by itrohan of BRAD) 100 00:00: mouth [place] mg capsule 00 every 8 Medica l (eight) Branch hours as needed for Cough. benzonatate 2021-0 Yes [id number] 100mg Take 1 [facility] (TESSALON 7-29 capsule by itrohan BRAD) 100 00:00: mouth [place] mg capsule 00 every 8 Medica l (eight) Branch hours as needed for Cough. benzonatate 2021- No [id number] 100mg Take 1 [facility] (TESSALON 7-29 11- capsule by rosi BRAD) 100 00:00: 00:00 [...] solution in the Branch evening. albuterol Yes [id number] 2{puff} Inhale 2 [facility] 90 7-27 Puffs ity of mcg/actuati 00:00: every 6 [place] as on inhaler 00 (six) Medical hours as Branch needed for Wheezing or Shortness of Breath. albuterol Yes [id number] 2{puff} Inhale 2 [facility] 90 7-27 Puffs ity of mcg/actuati 00:00: every 6 [place] on inhaler 00 (six) Medical hours as Branch needed for Wheezing or Shortness of Breath. albuterol Yes [id number] 2{puff} Inhale 2 [facility] 90 7-27 Puffs ity of mcg/actuati 00:00: every 6 [place] on inhaler 00 (six) Medical hours as Branch needed for Wheezing or Shortness of Breath. albuterol Yes [id number] 2{puff} Inhale 2 [facility] 90 7-27 Puffs ity of mcg/actuati 00:00: every 6 [place] on inhaler 00 (six) Medical hours as Branch needed for Wheezing or Shortness of Breath. albuterol Yes [id number] 2{puff} Inhale 2 [facility] 90 7-27 Puffs ity of mcg/actuati 00:00: every 6 [place] on inhaler 00 (six) Medical hours as Branch needed for Wheezing or Shortness of Breath. albuterol Yes [id number] 2{puff} Inhale 2 [facility] 90 7-27 Puffs ity of mcg/actuati 00:00: every 6 [place] on inhaler 00 (six) Medical hours as Branch needed for Wheezing or Shortness of Breath. albuterol Yes [id number] 2{puff} Inhale 2 [facility] 90 7-27 Puffs ity of mcg/actuati 00:00: every 6 [place] on inhaler 00 (six) Medical hours as Branch needed for Wheezing or Shortness of Breath. albuterol Yes [id number] 2{puff} Inhale 2 [facility] 90 7-27 Puffs ity of mcg/actuati 00:00: every 6 [place] on inhaler 00 (six) Medical hours as Branch needed for Wheezing or Shortness of Breath. albuterol Yes [id number] 2{puff} Inhale 2 [facility] 90 7-27 Puffs ity of mcg/actuati 00:00: every 6 [place] on inhaler 00 (six) Medical hours as Branch needed for Wheezing or Shortness of Breath. albuterol Yes [id number] 2{puff} Inhale 2 [facility] 90 7-27 Puffs ity of mcg/actuati 00:00: every 6 [place] on inhaler 00 (six) Medical hours as Branch needed for Wheezing or Shortness of Breath. albuterol Yes [id number] 2{puff} Inhale 2 [facility] 90 7-27 Puffs ity of mcg/actuati 00:00: every 6 [place] on inhaler 00 (six) Medical hours as Branch needed for Wheezing or Shortness of Breath. albuterol Yes [id number] 2{puff} Inhale 2 [facility] 90 7-27 Puffs ity of mcg/actuati 00:00: every 6 [place] on inhaler 00 (six) Medical hours as Branch needed for Wheezing or Shortness of Breath. albuterol Yes [id number] 2{puff} Inhale 2 [facility] 90 7-27 Puffs ity of mcg/actuati 00:00: every 6 [place] on inhaler 00 (six) Medical hours as Branch needed for Wheezing or Shortness of Breath. albuterol Yes [id number] 2{puff} Inhale 2 [facility] 90 7-27 Puffs ity of mcg/actuati 00:00: every 6 [place] as on inhaler 00 (six) Medical hours as Branch needed for Wheezing or Shortness of Breath. albuterol Yes [id number] 2{puff} Inhale 2 [facility] 90 7-27 Puffs ity of mcg/actuati 00:00: every 6 [place] on inhaler 00 (six) Medical hours as Branch needed for Wheezing or Shortness of Breath. albuterol Yes [id number] 2{puff} Inhale 2 [facility] 90 7-27 Puffs ity of mcg/actuati 00:00: every 6 [place] as on inhaler 00 (six) Medical hours as Branch needed for Wheezing or Shortness of Breath. albuterol Yes [id number] 2{puff} Inhale 2 [facility] 90 7-27 Puffs ity of mcg/actuati 00:00: every 6 [place] as on inhaler 00 (six) Medical hours as Branch needed for Wheezing or Shortness of Breath. albuterol Yes [id number] 2{puff} Inhale 2 [facility] 90 7-27 Puffs ity of mcg/actuati 00:00: every 6 [place] on inhaler 00 (six) Medical hours as Branch needed for Wheezing or Shortness of Breath. albuterol Yes [id number] 2{puff} Inhale 2 [facility] 90 7-27 Puffs ity of mcg/actuati 00:00: every 6 [place] on inhaler 00 (six) Medical hours as Branch needed for Wheezing or Shortness of Breath. albuterol Yes [id number] 2{puff} Inhale 2 [facility] 90 7-27 Puffs ity of mcg/actuati 00:00: every 6 [place] on inhaler 00 (six) Medical hours as Branch needed for Wheezing or Shortness of Breath. albuterol Yes [id number] 2{puff} Inhale 2 [facility] 90 7-27 Puffs ity of mcg/actuati 00:00: every 6 [place] on inhaler 00 (six) Medical hours as Branch needed for Wheezing or Shortness of Breath. albuterol Yes [id number] 2{puff} Inhale 2 [facility] 90 7-27 Puffs ity of mcg/actuati 00:00: every 6 [place] on inhaler 00 (six) Medical hours as Branch needed for Wheezing or Shortness of Breath. albuterol Yes [id number] 2{puff} Inhale 2 [facility] 90 7-27 Puffs ity of mcg/actuati 00:00: every 6 [place] on inhaler 00 (six) Medical hours as Branch needed for Wheezing or Shortness of Breath. albuterol Yes [id number] 2{puff} Inhale 2 [facility] 90 7-27 Puffs ity of mcg/actuati 00:00: every 6 [place] on inhaler 00 (six) Medical hours as Branch needed for Wheezing or Shortness of Breath. albuterol Yes [id number] 2{puff} Inhale 2 [facility] 90 7-27 Puffs ity of mcg/actuati 00:00: every 6 [place] on inhaler 00 (six) Medical hours as Branch needed for Wheezing or Shortness of Breath. albuterol Yes [id number] 2{puff} Inhale 2 [facility] 90 7-27 Puffs ity of mcg/actuati 00:00: every 6 [place] on inhaler 00 (six) Medical hours as Branch needed for Wheezing or Shortness of Breath. albuterol Yes [id number] 2{puff} Inhale 2 [facility] 90 7-27 Puffs ity of mcg/actuati 00:00: every 6 [place] on inhaler 00 (six) Medical hours as Branch needed for Wheezing or Shortness of Breath. albuterol Yes [id number] 2{puff} Inhale 2 [facility] 90 7-27 Puffs ity of mcg/actuati 00:00: every 6 [place] on inhaler 00 (six) Medical hours as Branch needed for Wheezing or Shortness of Breath. albuterol Yes [id number] 2{puff} Inhale 2 [facility] 90 7-27 Puffs ity of mcg/actuati 00:00: every 6 [place] on inhaler 00 (six) Medical hours as Branch needed for Wheezing or Shortness of Breath. albuterol Yes [id number] 2{puff} Inhale 2 [facility] 90 7-27 Puffs ity of mcg/actuati 00:00: every 6 [place] on inhaler 00 (six) Medical hours as Branch needed for Wheezing or Shortness of Breath. albuterol Yes [id number] 2{puff} Inhale 2 [facility] 90 7-27 Puffs ity of mcg/actuati 00:00: every 6 [place] on inhaler 00 (six) Medical hours as Branch needed for Wheezing or Shortness of Breath. albuterol Yes [id number] 2{puff} Inhale 2 [facility] 90 7-27 Puffs ity of mcg/actuati 00:00: every 6 [place] on inhaler 00 (six) Medical hours as Branch needed for Wheezing or Shortness of Breath. albuterol Yes [id number] 2{puff} Inhale 2 [facility] 90 7-27 Puffs ity of mcg/actuati 00:00: every 6 [place] as on inhaler 00 (six) Medical hours as Branch needed for Wheezing or Shortness of Breath. albuterol Yes [id number] 2{puff} Inhale 2 [facility] 90 7-27 Puffs ity of mcg/actuati 00:00: every 6 [place] as on inhaler 00 (six) Medical hours as Branch needed for Wheezing or Shortness of Breath. albuterol Yes [id number] 2{puff} Inhale 2 [facility] 90 7-27 Puffs ity of mcg/actuati 00:00: every 6 [place] on inhaler 00 (six) Medical hours as Branch needed for Wheezing or Shortness of Breath. albuterol Yes [id number] 2{puff} Inhale 2 [facility] 90 7-27 Puffs ity of mcg/actuati 00:00: every 6 [place] on inhaler 00 (six) Medical hours as Branch needed for Wheezing or Shortness of Breath. albuterol Yes [id number] 2{puff} Inhale 2 [facility] 90 7-27 Puffs ity of mcg/actuati 00:00: every 6 [place] on inhaler 00 (six) Medical hours as Branch needed for Wheezing or Shortness of Breath. albuterol Yes [id number] 2{puff} Inhale 2 [facility] 90 7-27 Puffs ity of mcg/actuati 00:00: every 6 [place] on inhaler 00 (six) Medical hours as Branch needed for Wheezing or Shortness of Breath. albuterol Yes [id number] 2{puff} Inhale 2 [facility] 90 7-27 Puffs ity of mcg/actuati 00:00: every 6 [place] on inhaler 00 (six) Medical hours as Branch needed for Wheezing or Shortness of Breath. albuterol Yes [id number] 2{puff} Inhale 2 [facility] 90 7-27 Puffs ity of mcg/actuati 00:00: every 6 [place] on inhaler 00 (six) Medical hours as Branch needed for Wheezing or Shortness of Breath. albuterol Yes [id number] 2{puff} Inhale 2 [facility] 90 7-27 Puffs ity of mcg/actuati 00:00: every 6 [place] as on inhaler 00 (six) Medical hours as Branch needed for Wheezing or Shortness of Breath. albuterol Yes [id number] 2{puff} Inhale 2 [facility] 90 7-27 Puffs ity of mcg/actuati 00:00: every 6 [place] as on inhaler 00 (six) Medical hours as Branch needed for Wheezing or Shortness of Breath. albuterol Yes [id number] 2{puff} Inhale 2 [facility] 90 7-27 Puffs ity of mcg/actuati 00:00: every 6 [place] as on inhaler 00 (six) Medical hours as Branch needed for Wheezing or Shortness of Breath. albuterol Yes [id number] 2{puff} Inhale 2 [facility] 90 7-27 Puffs ity of mcg/actuati 00:00: every 6 [place] as on inhaler 00 (six) Medical hours as Branch needed for Wheezing or Shortness of Breath. albuterol Yes [id number] 2{puff} Inhale 2 [facility] 90 7-27 Puffs ity of mcg/actuati 00:00: every 6 [place] as on inhaler 00 (six) Medical hours as Branch needed for Wheezing or Shortness of Breath. albuterol Yes [id number] 2{puff} Inhale 2 [facility] 90 7-27 Puffs ity of mcg/actuati 00:00: every 6 [place] as on inhaler 00 (six) Medical hours as Branch needed for Wheezing or Shortness of Breath. albuterol Yes [id number] 2{puff} Inhale 2 [facility] 90 7-27 Puffs ity of mcg/actuati 00:00: every 6 [place] as on inhaler 00 (six) Medical hours as Branch needed for Wheezing or Shortness of Breath. albuterol 2022- No [id number] 2{puff} Inhale 2 [facility] 90 7-27 01-05 Puffs ity of mcg/actuati 00:00: 00:00 every 6 [place] on inhaler 00 :00 (six) Medical hours as Branch needed for Wheezing or Shortness of Breath. albuterol 2022- No [id number] 2{puff} Inhale 2 [facility] 90 7-27 01-05 Puffs ity of mcg/actuati 00:00: 00:00 every 6 [place] on inhaler 00 :00 (six) Medical hours as Branch needed for Wheezing or Shortness of Breath. albuterol 2022- No [id number] 2{puff} Inhale 2 [facility] 90 7-27 01-05 Puffs ity of mcg/actuati 00:00: 00:00 every 6 [place] on inhaler 00 :00 (six) Medical hours as Branch needed for Wheezing or Shortness of Breath. albuterol 2022- No [id number] 2{puff} Inhale 2 [facility] 90 7-27 01-05 Puffs ity of mcg/actuati 00:00: 00:00 every 6 [place] on inhaler 00 :00 (six) Medical hours as Branch needed for Wheezing or Shortness of Breath. levothyroxi Yes [id number] 150ug Take 1 [facility] ne 150 mcg 7-05 tablet by ity of tablet 00:00: mouth [place] 00 every Medical morning. Branch Diclofenac Yes [id number] Apply to [facility] Sodium 7-05 area(s) 4 ity of (VOLTAREN) 00:00: (four) [place] 1 % gel 00 times Medical daily. Branch Apply 4 g qid baclofen 10 Yes [id number] 10mg Take 1 [facility] mg tablet 7-05 tablet by ity o f 00:00: mouth 3 [place] 00 (three) Medical times Branch daily as needed for Pain (scale 7-10). docusate Yes [id number] 100mg Take 1 [facility] renetta 100 mg 7-05 capsule by ity of capsule 00:00: mouth 2 00 (two) Medical times Branch daily. glipiZIDE 2021- Yes [id number] 2.5mg Take 1 [facility] n[facility] XL 2.5 mg 7-05 tablet by ity o f 24 hr 00:00: mouth 2 [place] tablet 00 (two) Medical times Branch daily. Lidocaine 5 2021-0 Yes [id number] Apply to [facility] % cream 7-05 area(s) 2 ity of 00:00: (two) [place] 00 times Medical daily as Branch needed for Pain (scale 4-6). Apply 5g to affected areas BID PRN levothyroxi 2021-0 Yes [id number] 150ug Take 1 [facility] 150 mcg 7-05 tablet by [facility] tablet 00:00: mouth [place] 00 every Medical morning. Branch Diclofenac 2021-0 Yes [id number] Apply to [facility] Sodium 7-05 area(s) 4 [facility] of (VOLTAREN) 00:00: (four) [place] 1 % gel 00 times Medical daily. Branch Apply 4 g qid baclofen 10 Yes [id number] 10mg Take 1 [facility] mg tablet 7-05 tablet by [facility] o f 00:00: mouth 3 [place] 00 (three) Medical times Branch daily as needed for Pain (scale 7-10). docusate Yes [id number] 100mg Take 1 Un renetta 100 mg 7-05 capsule by [facility] capsule 00:00: mouth 2 [place] 00 (two) Medical times Branch daily. glipiZIDE Yes [id number] 2.5mg Take 1 [facility] XL 2.5 mg 7-05 tablet by [facility] o f 24 hr 00:00: mouth 2 [place] tablet 00 (two) Medical times Branch daily. Lidocaine 5 2021-0 Yes [id number] Apply to [facility] % cream 7-05 area(s) 2 [facility] 00:00: (two) [place] 00 times Medical daily as Branch needed for Pain (scale 4-6). Apply 5g to affected areas BID PRN levothyroxi 2021-0 Yes [id number] 150ug Take 1 [facility] ne 150 mcg 7-05 tablet by [facility] tablet 00:00: mouth [place] 00 every Medical morning. Branch Diclofenac 2021-0 Yes [id number] Apply to [facility] Sodium 7-05 area(s) 4 [facility] (VOLTAREN) 00:00: (four) [place] 1 % gel 00 times Medical daily. Branch Apply 4 g qid baclofen 10 Yes [id number] 10mg Take 1 [facility] mg tablet 7-05 tablet by [facility] o f 00:00: mouth 3 (three) Medical times Branch daily as needed for Pain (scale 7-10). docusate 2021-0 Yes [id number] 100mg Take 1 [facility] renetta 100 mg 7-05 capsule by [facility] capsule 00:00: mouth 2 00 (two) Medical times Branch daily. glipiZIDE 2021-0 Yes [id number] 2.5mg Take 1 [facility] XL 2.5 mg 7-05 tablet by [facility] o f 24 hr 00:00: mouth 2 [place] tablet 00 (two) Medical times Branch daily. Lidocaine 5 2021- Yes [id number] Apply to [facility] % cream 7-05 area(s) 2 [facility] 00:00: (two) [place] 00 times Medical daily as Branch needed for Pain (scale 4-6). Apply 5g to affected areas BID PRN levothyroxi Yes [id number] 150ug Take 1 [facility] ne 150 mcg 7-05 tablet by [facility] tablet 00:00: mouth [place] 00 every Medical morning. Branch Diclofenac 2021-0 Yes [id number] Apply to [facility] Sodium 7-05 area(s) 4 [facility] (VOLTAREN) 00:00: (four) [place] 1 % gel 00 times Medical daily. Branch Apply 4 g qid baclofen 10 0 Yes [id number] 10mg Take 1 [facility] mg tablet 7-05 tablet by [facility] o f 00:00: mouth 3 (three) Medical times Branch daily as needed for Pain (scale 7-10). docusate 2021-0 Yes [id number] 100mg Take 1 [facility] renet[facility] 100 mg 7-05 capsule by [facility] capsule 00:00: mouth 2 00 (two) Medical times Branch daily. glipiZIDE 2021-0 Yes [id number] 2.5mg Take 1 [facility] XL 2.5 mg 7-05 tablet by [facility] o f 24 hr 00:00: mouth 2 [place] tablet 00 (two) Medical times Branch daily. Lidocaine 5 2021-0 Yes [id number] Apply to [facility] % cream 7-05 area(s) 2 [facility] 00:00: (two) [place] 00 times Medical daily as Branch needed for Pain (scale 4-6). Apply 5g to affected areas BID PRN levothyroxi 2021-0 Yes [id number] 150ug Take 1 [facility] ne 150 mcg 7-05 tablet by [facility] tablet 00:00: mouth [place] 00 every Medical morning. Branch Diclofenac 2021-0 Yes [id number] Apply to [facility] Sodium 7-05 area(s) 4 [facility] of (VOLTAREN) 00:00: (four) [place] 1 % gel 00 times Medical daily. Branch Apply 4 g qid baclofen 10 0 Yes [id number] 10mg Take 1 [facility] mg tablet 7-05 tablet by [facility] o f 00:00: mouth 3 [place] 00 (three) Medical times Branch daily as needed for Pain (scale 7-10). docusate 2021-0 Yes [id number] 100mg Take 1 [facility] renetta 100 mg 7-05 capsule by [facility] capsule 00:00: mouth 2 [place] 00 (two) Medical times Branch daily. glipiZIDE Yes [id number] 2.5mg Take 1 [facility] XL 2.5 mg 7-05 tablet by [facility] o f 24 hr 00:00: mouth 2 [place] tablet 00 (two) Medical times Branch daily. Lidocaine 5 0 Yes [id number] Apply to [facility] % cream 7-05 area(s) 2 [facility] 00:00: (two) [place] 00 times Medical daily as Branch needed for Pain (scale 4-6). Apply 5g to affected areas BID PRN levothyroxi 2021-0 Yes [id number] 150ug Take 1 [facility] ne 150 mcg 7-05 tablet by [facility] tablet 00:00: mouth [place] 00 every Medical morning. Branch Diclofenac 2021-0 Yes [id number] Apply to [facility] Sodium 7-05 area(s) 4 [facility] of (VOLTAREN) 00:00: (four) [place] 1 % gel 00 times Medical daily. Branch Apply 4 g qid baclofen 10 2021-0 Yes [id number] 10mg Take 1 [facility] mg tablet 7-05 tablet by [facility] o f 00:00: mouth 3 [place] 00 (three) Medical times Branch daily as needed for Pain (scale 7-10). docusate 2021-0 Yes [id number] 100mg Take 1 [facility] renet[facility] 100 mg 7-05 capsule by [facility] capsule 00:00: mouth 2 [place] 00 (two) Medical times Branch daily. glipiZIDE 2021-0 Yes [id number] 2.5mg Take 1 [facility] XL 2.5 mg 7-05 tablet by [facility] o f 24 hr 00:00: mouth 2 [place] tablet 00 (two) Medical times Branch daily. Lidocaine 5 2021-0 Yes [id number] Apply to [facility] % cream 7-05 area(s) 2 [facility] 00:00: (two) [place] 00 times Medical daily as Branch needed for Pain (scale 4-6). Apply 5g to affected areas BID PRN levothyroxi 2021-0 Yes [id number] 150ug Take 1 [facility] ne 150 mcg 7-05 tablet by [facility] tablet 00:00: mouth [place] 00 every Medical morning. Branch Diclofenac 2021- Yes [id number] Apply to [facility] Sodium 7-05 area(s) 4 [facility] (VOLTAREN) 00:00: (four) [place] 1 % gel 00 times Medical daily. Branch Apply 4 g qid baclofen 10 Yes [id number] 10mg Take 1 [facility] mg tablet 7-05 tablet by [facility] o f 00:00: mouth 3 [place] 00 (three) Medical times Branch daily as needed for Pain (scale 7-10). docusate Yes [id number] 100mg Take 1 [facility] renetta 100 mg 7-05 capsule by [facility] capsule 00:00: mouth 2 [place] 00 (two) Medical times Branch daily. glipiZIDE Yes [id number] 2.5mg Take 1 [facility] XL 2.5 mg 7-05 tablet by [facility] o f 24 hr 00:00: mouth 2 [place] tablet 00 (two) Medical times Branch daily. Lidocaine 5 2021-0 Yes [id number] Apply to [facility] % cream 7-05 area(s) 2 [facility] 00:00: (two) [place] 00 times Medical daily as Branch needed for Pain (scale 4-6). Apply 5g to affected areas BID PRN levothyroxi 2021-0 Yes [id number] 150ug Take 1 [facility] ne 150 mcg 7-05 tablet by [facility] tablet 00:00: mouth [place] 00 every Medical morning. Branch Diclofenac 2021-0 Yes [id number] Apply to [facility] Sodium 7-05 area(s) 4 [facility] of (VOLTAREN) 00:00: (four) [place] 1 % gel 00 times Medical daily. Branch Apply 4 g qid baclofen 10 2021-0 Yes [id number] 10mg Take 1 [facility] mg tablet 7-05 tablet by [facility] o f 00:00: mouth 3 [place] 00 (three) Medical times Branch daily as needed for Pain (scale 7-10). docusate 2021-0 Yes [id number] 100mg Take 1 [facility] renetta 100 mg 7-05 capsule by [facility] capsule 00:00: mouth 2 [place] 00 (two) Medical times Branch daily. glipiZIDE 2021-0 Yes [id number] 2.5mg Take 1 [facility] XL 2.5 mg 7-05 tablet by [facility] o f 24 hr 00:00: mouth 2 [place] tablet 00 (two) Medical times Branch daily. Lidocaine 5 2021-0 Yes [id number] Apply to [facility] % cream 7-05 area(s) 2 [facility] 00:00: (two) [place] 00 times Medical daily as Branch needed for Pain (scale 4-6). Apply 5g to affected areas BID PRN levothyroxi 2021-0 Yes [id number] 150ug Take 1 [facility] ne 150 mcg 7-05 tablet by [facility] tablet 00:00: mouth [place] 00 every Medical morning. Branch Diclofenac 2021-0 Yes [id number] Apply to [facility] Sodium 7-05 area(s) 4 [facility] (VOLTAREN) 00:00: (four) [place] 1 % gel 00 times Medical daily. Branch Apply 4 g qid baclofen 10 2021-0 Yes [id number] 10mg Take 1 [facility] mg tablet 7-05 tablet by [facility] o f 00:00: mouth 3 [place] 00 (three) Medical times Branch daily as needed for Pain (scale 7-10). docusate 2021-0 Yes [id number] 100mg Take 1 [facility] renet[facility] 100 mg 7-05 capsule by [facility] capsule 00:00: mouth 2 00 (two) Medical times Branch daily. glipiZIDE 2021-0 Yes [id number] 2.5mg Take 1 [facility] XL 2.5 mg 7-05 tablet by [facility] o f 24 hr 00:00: mouth 2 [place] tablet 00 (two) Medical times Branch daily. Lidocaine 5 2021-0 Yes [id number] Apply to [facility] % cream 7-05 area(s) 2 [facility] 00:00: (two) [place] 00 times Medical daily as Branch needed for Pain (scale 4-6). Apply 5g to affected areas BID PRN levothyroxi Yes [id number] 150ug Take 1 [facility] ne 150 mcg 7-05 tablet by [facility] tablet 00:00: mouth [place] 00 every Medical morning. Branch Diclofenac Yes [id number] Apply to [facility] Sodium 7-05 area(s) 4 [facility] of (VOLTAREN) 00:00: (four) [place] 1 % gel 00 times Medical daily. Branch Apply 4 g qid baclofen 10 Yes [id number] 10mg Take 1 [facility] mg tablet 7-05 tablet by [facility] o f 00:00: mouth 3 [place] 00 (three) Medical times Branch daily as needed for Pain (scale 7-10). docusate Yes [id number] 100mg Take 1 [facility] renetta 100 mg 7-05 capsule by [facility] capsule 00:00: mouth 2 [place] 00 (two) Medical times Branch daily. glipiZIDE Yes [id number] 2.5mg Take 1 [facility] n[facility] XL 2.5 mg 7-05 tablet by [facility] o f 24 hr 00:00: mouth 2 [place] tablet 00 (two) Medical times Branch daily. Lidocaine 5 Yes [id number] Apply to [facility] % cream 7-05 area(s) 2 [facility] 00:00: (two) [place] 00 times Medical daily as Branch needed for Pain (scale 4-6). Apply 5g to affected areas BID PRN levothyroxi Yes [id number] 150ug Take 1 [facility] ne 150 mcg 7-05 tablet by [facility] of tablet 00:00: mouth [place] 00 every Medical morning. Branch Diclofenac Yes [id number] Apply to [facility] Sodium 7-05 area(s) 4 [facility] of (VOLTAREN) 00:00: (four) [place] 1 % gel 00 times Medical daily. Branch Apply 4 g qid baclofen 10 Yes [id number] 10mg Take 1 [facility] mg tablet 7-05 tablet by [facility] o f 00:00: mouth 3 [place] 00 (three) Medical times Branch daily as needed for Pain (scale 7-10). docusate Yes [id number] 100mg Take 1 Un renetta 100 mg 7-05 capsule by [facility] capsule 00:00: mouth 2 [place] 00 (two) Medical times Branch daily. glipiZIDE Yes [id number] 2.5mg Take 1 [facility] n[facility] XL 2.5 mg 7-05 tablet by [facility] o f 24 hr 00:00: mouth 2 [place] tablet 00 (two) Medical times Branch daily. Lidocaine 5 2021- Yes [id number] Apply to [facility] % cream 7-05 area(s) 2 [facility] 00:00: (two) [place] 00 times Medical daily as Branch needed for Pain (scale 4-6). Apply 5g to affected areas BID PRN levothyroxi Yes [id number] 150ug Take 1 [facility] ne 150 mcg 7-05 tablet by [facility] of tablet 00:00: mouth [place] 00 every Medical morning. Branch Diclofenac Yes [id number] Apply to [facility] Sodium 7-05 area(s) 4 [facility] of (VOLTAREN) 00:00: (four) [place] 1 % gel 00 times Medical daily. Branch Apply 4 g qid baclofen 10 Yes [id number] 10mg Take 1 [facility] mg tablet 7-05 tablet by [facility] o f 00:00: mouth 3 [place] 00 (three) Medical times Branch daily as needed for Pain (scale 7-10). docusate Yes [id number] 100mg Take 1 [facility] renetta 100 mg 7-05 capsule by [facility] capsule 00:00: mouth 2 00 (two) Medical times Branch daily. glipiZIDE Yes [id number] 2.5mg Take 1 [facility] n[facility] XL 2.5 mg 7-05 tablet by [facility] o f 24 hr 00:00: mouth 2 [place] tablet 00 (two) Medical times Branch daily. Lidocaine 5 2021- Yes [id number] Apply to [facility] % cream 7-05 area(s) 2 [facility] 00:00: (two) [place] 00 times Medical daily as Branch needed for Pain (scale 4-6). Apply 5g to affected areas BID PRN levothyroxi 2021-0 Yes [id number] 150ug Take 1 [facility] ne 150 mcg 7-05 tablet by [facility] of tablet 00:00: mouth [place] 00 every Medical morning. Branch Diclofenac Yes [id number] Apply to [facility] Sodium 7-05 area(s) 4 [facility] of (VOLTAREN) 00:00: (four) [place] 1 % gel 00 times Medical daily. Branch Apply 4 g qid baclofen 10 Yes [id number] 10mg Take 1 [facility] mg tablet 7-05 tablet by [facility] o f 00:00: mouth 3 00 (three) Medical times Branch daily as needed for Pain (scale 7-10). docusate 0 Yes [id number] 100mg Take 1 Un renetta 100 mg 7-05 capsule by [facility] capsule 00:00: mouth 2 [place] 00 (two) Medical times Branch daily. glipiZIDE 2021-0 Yes [id number] 2.5mg Take 1 [facility] n[facility] XL 2.5 mg 7-05 tablet by [facility] o f 24 hr 00:00: mouth 2 [place] tablet 00 (two) Medical times Branch daily. Lidocaine 5 Yes [id number] Apply to [facility] % cream 7-05 area(s) 2 [facility] of 00:00: (two) [place] 00 times Medical daily as Branch needed for Pain (scale 4-6). Apply 5g to affected areas BID PRN levothyroxi Yes [id number] 150ug Take 1 [facility] ne 150 mcg 7-05 tablet by [facility] tablet 00:00: mouth [place] 00 every Medical morning. Branch Diclofenac Yes [id number] Apply to [facility] Sodium 7-05 area(s) 4 [facility] of (VOLTAREN) 00:00: (four) [place] 1 % gel 00 times Medical daily. Branch Apply 4 g qid baclofen 10 Yes [id number] 10mg Take 1 [facility] mg tablet 7-05 tablet by [facility] o f 00:00: mouth 3 [place] 00 (three) Medical times Branch daily as needed for Pain (scale 7-10). docusate 2021-0 Yes [id number] 100mg Take 1 [facility] renetta 100 mg 7-05 capsule by [facility] capsule 00:00: mouth 2 [place] 00 (two) Medical times Branch daily. glipiZIDE 2021-0 Yes [id number] 2.5mg Take 1 [facility] XL 2.5 mg 7-05 tablet by [facility] o f 24 hr 00:00: mouth 2 [place] tablet 00 (two) Medical times Branch daily. Lidocaine 5 2021-0 Yes [id number] Apply to [facility] % cream 7-05 area(s) 2 [facility] 00:00: (two) [place] 00 times Medical daily as Branch needed for Pain (scale 4-6). Apply 5g to affected areas BID PRN levothyroxi 2021-0 Yes [id number] 150ug Take 1 [facility] ne 150 mcg 7-05 tablet by [facility] tablet 00:00: mouth [place] 00 every Medical morning. Branch Diclofenac 2021-0 Yes [id number] Apply to [facility] Sodium 7-05 area(s) 4 [facility] of (VOLTAREN) 00:00: (four) [place] 1 % gel 00 times Medical daily. Branch Apply 4 g qid baclofen 10 2021-0 Yes [id number] 10mg Take 1 [facility] mg tablet 7-05 tablet by [facility] o f 00:00: mouth 3 [place] 00 (three) Medical times Branch daily as needed for Pain (scale 7-10). docusate Yes [id number] 100mg Take 1 Un renetta 100 mg 7-05 capsule by [facility] capsule 00:00: mouth 2 [place] 00 (two) Medical times Branch daily. glipiZIDE Yes [id number] 2.5mg Take 1 [facility] XL 2.5 mg 7-05 tablet by [facility] o f 24 hr 00:00: mouth 2 [place] tablet 00 (two) Medical times Branch daily. Lidocaine 5 2021-0 Yes [id number] Apply to [facility] % cream 7-05 area(s) 2 [facility] 00:00: (two) [place] 00 times Medical daily as Branch needed for Pain (scale 4-6). Apply 5g to affected areas BID PRN levothyroxi 2021-0 Yes [id number] 150ug Take 1 [facility] ne 150 mcg 7-05 tablet by [facility] of tablet 00:00: mouth [place] 00 every Medical morning. Branch Diclofenac 2021-0 Yes [id number] Apply to [facility] Sodium 7-05 area(s) 4 [facility] of (VOLTAREN) 00:00: (four) [place] 1 % gel 00 times Medical daily. Branch Apply 4 g qid baclofen 10 2021-0 Yes [id number] 10mg Take 1 [facility] mg tablet 7-05 tablet by [facility] o f 00:00: mouth 3 [place] 00 (three) Medical times Branch daily as needed for Pain (scale 7-10). docusate 2021- Yes [id number] 100mg Take 1 Un renetta 100 mg 7-05 capsule by [facility] capsule 00:00: mouth 2 [place] 00 (two) Medical times Branch daily. glipiZIDE Yes [id number] 2.5mg Take 1 [facility] n[facility] XL 2.5 mg 7-05 tablet by it[facility] o f 24 hr 00:00: mouth 2 [place] tablet 00 (two) Medical times Branch daily. Lidocaine 5 2021- Yes [id number] Apply to [facility] % cream 7-05 area(s) 2 [facility] of 00:00: (two) [place] 00 times Medical daily as Branch needed for Pain (scale 4-6). Apply 5g to affected areas BID PRN levothyroxi Yes [id number] 150ug Take 1 [facility] ne 150 mcg 7-05 tablet by [facility] of tablet 00:00: mouth [place] 00 every Medical morning. Branch Diclofenac Yes [id number] Apply to [facility] Sodium 7-05 area(s) 4 [facility] of (VOLTAREN) 00:00: (four) [place] 1 % gel 00 times Medical daily. Branch Apply 4 g qid baclofen 10 Yes [id number] 10mg Take 1 [facility] mg tablet 7-05 tablet by [facility] o f 00:00: mouth 3 [place] 00 (three) Medical times Branch daily as needed for Pain (scale 7-10). docusate Yes [id number] 100mg Take 1 Un renetta 100 mg 7-05 capsule by [facility] capsule 00:00: mouth 2 [place] 00 (two) Medical times Branch daily. glipiZIDE 2021- Yes [id number] 2.5mg Take 1 [facility] n[facility] XL 2.5 mg 7-05 tablet by [facility] o f 24 hr 00:00: mouth 2 [place] tablet 00 (two) Medical times Branch daily. Lidocaine 5 2021- Yes [id number] Apply to [facility] % cream 7-05 area(s) 2 [facility] of 00:00: (two) [place] 00 times Medical daily as Branch needed for Pain (scale 4-6). Apply 5g to affected areas BID PRN levothyroxi 2021-0 Yes [id number] 150ug Take 1 [facility] ne 150 mcg 7-05 tablet by [facility] of tablet 00:00: mouth [place] 00 every Medical morning. Branch Diclofenac 2021- Yes [id number] Apply to [facility] Sodium 7-05 area(s) 4 [facility] of (VOLTAREN) 00:00: (four) [place] 1 % gel 00 times Medical daily. Branch Apply 4 g qid baclofen 10 0 Yes [id number] 10mg Take 1 [facility] mg tablet 7-05 tablet by [facility] o f 00:00: mouth 3 [place] 00 (three) Medical times Branch daily as needed for Pain (scale 7-10). docusate 2021-0 Yes [id number] 100mg Take 1 Un renetta 100 mg 7-05 capsule by [facility] of capsule 00:00: mouth 2 [place] 00 (two) Medical times Branch daily. glipiZIDE 0 Yes [id number] 2.5mg Take 1 [facility] n[facility] XL 2.5 mg 7-05 tablet by it[facility] o f 24 hr 00:00: mouth 2 [place] tablet 00 (two) Medical times Branch daily. Lidocaine 5 0 Yes [id number] Apply to [facility] % cream 7-05 area(s) 2 [facility] of 00:00: (two) [place] 00 times Medical daily as Branch needed for Pain (scale 4-6). Apply 5g to affected areas BID PRN levothyroxi 0 Yes [id number] 150ug Take 1 [facility] ne 150 mcg 7-05 tablet by [facility] of tablet 00:00: mouth [place] 00 every Medical morning. Branch Diclofenac Yes [id number] Apply to [facility] Sodium 7-05 area(s) 4 [facility] of (VOLTAREN) 00:00: (four) [place] 1 % gel 00 times Medical daily. Branch Apply 4 g qid baclofen 10 0 Yes [id number] 10mg Take 1 [facility] mg tablet 7-05 tablet by [facility] o f 00:00: mouth 3 [place] 00 (three) Medical times Branch daily as needed for Pain (scale 7-10). docusate 2021-0 Yes [id number] 100mg Take 1 Un renetta 100 mg 7-05 capsule by [facility] capsule 00:00: mouth 2 [place] 00 (two) Medical times Branch daily. glipiZIDE 2021-0 Yes [id number] 2.5mg Take 1 [facility] n[facility] XL 2.5 mg 7-05 tablet by [facility] o f 24 hr 00:00: mouth 2 [place] tablet 00 (two) Medical times Branch daily. Lidocaine 5 2021- Yes [id number] Apply to [facility] % cream 7-05 area(s) 2 [facility] of 00:00: (two) [place] 00 times Medical daily as Branch needed for Pain (scale 4-6). Apply 5g to affected areas BID PRN levothyroxi 2021-0 Yes [id number] 150ug Take 1 [facility] ne 150 mcg 7-05 tablet by [facility] of tablet 00:00: mouth [place] 00 every Medical morning. Branch Diclofenac 2021- Yes [id number] Apply to [facility] Sodium 7-05 area(s) 4 [facility] of (VOLTAREN) 00:00: (four) [place] 1 % gel 00 times Medical daily. Branch Apply 4 g qid baclofen 10 0 Yes [id number] 10mg Take 1 [facility] mg tablet 7-05 tablet by [facility] o f 00:00: mouth 3 [place] 00 (three) Medical times Branch daily as needed for Pain (scale 7-10). docusate Yes [id number] 100mg Take 1 Un renetta 100 mg 7-05 capsule by [facility] of capsule 00:00: mouth 2 [place] 00 (two) Medical times Branch daily. glipiZIDE Yes [id number] 2.5mg Take 1 [facility] XL 2.5 mg 7-05 tablet by [facility] o f 24 hr 00:00: mouth 2 [place] tablet 00 (two) Medical times Branch daily. Lidocaine 5 Yes [id number] Apply to [facility] % cream 7-05 area(s) 2 [facility] of 00:00: (two) [place] 00 times Medical daily as Branch needed for Pain (scale 4-6). Apply 5g to affected areas BID PRN levothyroxi 2021-0 Yes [id number] 150ug Take 1 [facility] ne 150 mcg 7-05 tablet by [facility] of tablet 00:00: mouth [place] 00 every Medical morning. Branch Diclofenac 2021-0 Yes [id number] Apply to [facility] Sodium 7-05 area(s) 4 [facility] of (VOLTAREN) 00:00: (four) [place] 1 % gel 00 times Medical daily. Branch Apply 4 g qid baclofen 10 2021-0 Yes [id number] 10mg Take 1 [facility] mg tablet 7-05 tablet by [facility] o f 00:00: mouth 3 [place] 00 (three) Medical times Branch daily as needed for Pain (scale 7-10). glipiZIDE Yes [id number] 2.5mg Take 1 [facility] nivers XL 2.5 mg 7-05 tablet by it[facility] o f 24 hr 00:00: mouth 2 [place] tablet 00 (two) Medical times Branch daily. Lidocaine 5 Yes [id number] Apply to [facility] % cream 7-05 area(s) 2 [facility] of 00:00: (two) [place] 00 times Medical daily as Branch needed for Pain (scale 4-6). Apply 5g to affected areas BID PRN levothyroxi Yes [id number] 150ug Take 1 [facility] ne 150 mcg 7-05 tablet by [facility] of tablet 00:00: mouth [place] 00 every Medical morning. Branch Diclofenac Yes [id number] Apply to [facility] Sodium 7-05 area(s) 4 [facility] of (VOLTAREN) 00:00: (four) [place] 1 % gel 00 times Medical daily. Branch Apply 4 g qid baclofen 10 Yes [id number] 10mg Take 1 [facility] mg tablet 7-05 tablet by [facility] o f 00:00: mouth 3 [place] 00 (three) Medical times Branch daily as needed for Pain (scale 7-10). glipiZIDE Yes [id number] 2.5mg Take 1 [facility] n[facility] XL 2.5 mg 7-05 tablet by it[facility] o f 24 hr 00:00: mouth 2 [place] tablet 00 (two) Medical times Branch daily. Lidocaine 5 Yes [id number] Apply to [facility] % cream 7-05 area(s) 2 [facility] of 00:00: (two) [place] 00 times Medical daily as Branch needed for Pain (scale 4-6). Apply 5g to affected areas BID PRN levothyroxi Yes [id number] 150ug Take 1 [facility] ne 150 mcg 7-05 tablet by [facility] of tablet 00:00: mouth [place] 00 every Medical morning. Branch Diclofenac Yes [id number] Apply to [facility] Sodium 7-05 area(s) 4 [facility] of (VOLTAREN) 00:00: (four) [place] 1 % gel 00 times Medical daily. Branch Apply 4 g qid baclofen 10 Yes [id number] 10mg Take 1 [facility] mg tablet 7-05 tablet by [facility] o f 00:00: mouth 3 [place] 00 (three) Medical times Branch daily as needed for Pain (scale 7-10). glipiZIDE Yes [id number] 2.5mg Take 1 [facility] n[facility] XL 2.5 mg 7-05 tablet by [facility] o f 24 hr 00:00: mouth 2 [place] tablet 00 (two) Medical times Branch daily. Lidocaine 5 Yes [id number] Apply to [facility] % cream 7-05 area(s) 2 [facility] of 00:00: (two) [place] 00 times Medical daily as Branch needed for Pain (scale 4-6). Apply 5g to affected areas BID PRN levothyroxi Yes [id number] 150ug Take 1 [facility] ne 150 mcg 7-05 tablet by [facility] of tablet 00:00: mouth [place] 00 every Medical morning. Branch Diclofenac Yes [id number] Apply to [facility] Sodium 7-05 area(s) 4 [facility]y of (VOLTAREN) 00:00: (four) [place] 1 % gel 00 times Medical daily. Branch Apply 4 g qid baclofen 10 Yes [id number] 10mg Take 1 [facility] mg tablet 7-05 tablet by [facility] o f 00:00: mouth 3 [place] 00 (three) Medical times Branch daily as needed for Pain (scale 7-10). glipiZIDE Yes [id number] 2.5mg Take 1 [facility] n[facility] XL 2.5 mg 7-05 tablet by [facility] o f 24 hr 00:00: mouth 2 [place] tablet 00 (two) Medical times Branch daily. Lidocaine 5 Yes [id number] Apply to [facility] % cream 7-05 area(s) 2 [facility] of 00:00: (two) [place] 00 times Medical daily as Branch needed for Pain (scale 4-6). Apply 5g to affected areas BID PRN levothyroxi Yes [id number] 150ug Take 1 [facility] ne 150 mcg 7-05 tablet by [facility] of tablet 00:00: mouth [place] 00 every Medical morning. Branch Diclofenac Yes [id number] Apply to [facility] Sodium 7-05 area(s) 4 [facility]y of (VOLTAREN) 00:00: (four) [place] 1 % gel 00 times Medical daily. Branch Apply 4 g qid baclofen 10 Yes [id number] 10mg Take 1 [facility] mg tablet 7-05 tablet by [facility] o f 00:00: mouth 3 [place] 00 (three) Medical times Branch daily as needed for Pain (scale 7-10). glipiZIDE Yes [id number] 2.5mg Take 1 [facility] n[facility] XL 2.5 mg 7-05 tablet by it[facility] o f 24 hr 00:00: mouth 2 [place] tablet 00 (two) Medical times Branch daily. Lidocaine 5 2021-0 Yes [id number] Apply to [facility] % cream 7-05 area(s) 2 [facility] of 00:00: (two) [place] 00 times Medical daily as Branch needed for Pain (scale 4-6). Apply 5g to affected areas BID PRN levothyroxi Yes [id number] 150ug Take 1 [facility] ne 150 mcg 7-05 tablet by [facility] of tablet 00:00: mouth [place] 00 every Medical morning. Branch Diclofenac Yes [id number] Apply to [facility] Sodium 7-05 area(s) 4 ity of (VOLTAREN) 00:00: (four) [place] 1 % gel 00 times Medical daily. Branch Apply 4 g qid baclofen 10 Yes [id number] 10mg Take 1 [facility] mg tablet 7-05 tablet by [facility] o f 00:00: mouth 3 [place] 00 (three) Medical times Branch daily as needed for Pain (scale 7-10). glipiZIDE Yes [id number] 2.5mg Take 1 [facility] n[facility] XL 2.5 mg 7-05 tablet by [facility] o f 24 hr 00:00: mouth 2 [place] tablet 00 (two) Medical times Branch daily. Lidocaine 5 2021-0 Yes [id number] Apply to [facility] % cream 7-05 area(s) 2 [facility] of 00:00: (two) [place] 00 times Medical daily as Branch needed for Pain (scale 4-6). Apply 5g to affected areas BID PRN levothyroxi 2021-0 Yes [id number] 150ug Take 1 [facility] ne 150 mcg 7-05 tablet by [facility] of tablet 00:00: mouth [place] 00 every Medical morning. Branch Diclofenac Yes [id number] Apply to [facility] Sodium 7-05 area(s) 4 ity of (VOLTAREN) 00:00: (four) [place] 1 % gel 00 times Medical daily. Branch Apply 4 g qid glipiZIDE 2-0 Yes [id number] 2.5mg Take 1 [facility] XL 2.5 mg 7-05 tablet by [facility] o f 24 hr 00:00: mouth 2 [place] tablet 00 (two) Medical times Branch daily. Lidocaine 5 2021-0 Yes [id number] Apply to [facility] % cream 7-05 area(s) 2 [facility] of 00:00: (two) [place] 00 times Medical daily as Branch needed for Pain (scale 4-6). Apply 5g to affected areas BID PRN levothyroxi 2021-0 Yes [id number] 150ug Take 1 [facility] ne 150 mcg 7-05 tablet by [facility] of tablet 00:00: mouth [place] 00 every Medical morning. Branch Diclofenac 2021-0 Yes [id number] Apply to [facility] Sodium 7-05 area(s) 4 [facility] (VOLTAREN) 00:00: (four) [place] 1 % gel 00 times Medical daily. Branch Apply 4 g qid glipiZIDE 2021-0 Yes [id number] 2.5mg Take 1 [facility] XL 2.5 mg 7-05 tablet by [facility] o f 24 hr 00:00: mouth 2 [place] tablet 00 (two) Medical times Branch daily. Lidocaine 5 2021-0 Yes [id number] Apply to [facility] % cream 7-05 area(s) 2 [facility] of 00:00: (two) [place] 00 times Medical daily as Branch needed for Pain (scale 4-6). Apply 5g to affected areas BID PRN levothyroxi 2-0 Yes [id number] 150ug Take 1 [facility] ne 150 mcg 7-05 tablet by [facility] of tablet 00:00: mouth [place] 00 every Medical morning. Branch Diclofenac 2021-0 Yes [id number] Apply to [facility] Sodium 7-05 area(s) 4 [facility] of (VOLTAREN) 00:00: (four) [place] 1 % gel 00 times Medical daily. Branch Apply 4 g qid glipiZIDE 2-0 Yes [id number] 2.5mg Take 1 [facility] XL 2.5 mg 7-05 tablet by [facility] o f 24 hr 00:00: mouth 2 [place] tablet 00 (two) Medical times Branch daily. Lidocaine 5 2022-0 Yes [id number] Apply to [facility] % cream 7-05 area(s) 2 [facility] of 00:00: (two) [place] 00 times Medical daily as Branch needed for Pain (scale 4-6). Apply 5g to affected areas BID PRN levothyroxi 2-0 Yes [id number] 150ug Take 1 [facility] ne 150 mcg 7-05 tablet by [facility] of tablet 00:00: mouth [place] 00 every Medical morning. Branch Diclofenac 2021-0 Yes [id number] Apply to [facility] Sodium 7-05 area(s) 4 [facility] of (VOLTAREN) 00:00: (four) [place] 1 % gel 00 times Medical daily. Branch Apply 4 g qid glipiZIDE 2021-0 Yes [id number] 2.5mg Take 1 [facility] XL 2.5 mg 7-05 tablet by [facility] o f 24 hr 00:00: mouth 2 [place] tablet 00 (two) Medical times Branch daily. Lidocaine 5 2021-0 Yes [id number] Apply to [facility] % cream 7-05 area(s) 2 [facility] of 00:00: (two) [place] 00 times Medical daily as Branch needed for Pain (scale 4-6). Apply 5g to affected areas BID PRN levothyroxi 2021-0 Yes [id number] 150ug Take 1 [facility] ne 150 mcg 7-05 tablet by [facility] of tablet 00:00: mouth [place] 00 every Medical morning. Branch Diclofenac 2021-0 Yes [id number] Apply to [facility] Sodium 7-05 area(s) 4 [facility] of (VOLTAREN) 00:00: (four) [place] 1 % gel 00 times Medical daily. Branch Apply 4 g qid glipiZIDE 2021-0 Yes [id number] 2.5mg Take 1 [facility] XL 2.5 mg 7-05 tablet by [facility] o f 24 hr 00:00: mouth 2 [place] tablet 00 (two) Medical times Branch daily. Lidocaine 5 2021-0 Yes [id number] Apply to [facility] % cream 7-05 area(s) 2 [facility] of 00:00: (two) [place] 00 times Medical daily as Branch needed for Pain (scale 4-6). Apply 5g to affected areas BID PRN levothyroxi 2022-0 Yes [id number] 150ug Take 1 [facility] ne 150 mcg 7-05 tablet by [facility] of tablet 00:00: mouth [place] 00 every Medical morning. Branch Diclofenac 2-0 Yes [id number] Apply to [facility] Sodium 7-05 area(s) 4 [facility] of (VOLTAREN) 00:00: (four) [place] 1 % gel 00 times Medical daily. Branch Apply 4 g qid glipiZIDE 2021-0 Yes [id number] 2.5mg Take 1 [facility] XL 2.5 mg 7-05 tablet by [facility] o f 24 hr 00:00: mouth 2 [place] tablet 00 (two) Medical times Branch daily. Lidocaine 5 2021-0 Yes [id number] Apply to [facility] % cream 7-05 area(s) 2 [facility] of 00:00: (two) [place] 00 times Medical daily as Branch needed for Pain (scale 4-6). Apply 5g to affected areas BID PRN levothyroxi 2-0 Yes [id number] 150ug Take 1 [facility] ne 150 mcg 7-05 tablet by [facility] of tablet 00:00: mouth [place] 00 every Medical morning. Branch Diclofenac 2021-0 Yes [id number] Apply to [facility] Sodium 7-05 area(s) 4 [facility] of (VOLTAREN) 00:00: (four) [place] 1 % gel 00 times Medical daily. Branch Apply 4 g qid glipiZIDE 2021-0 Yes [id number] 2.5mg Take 1 [facility] XL 2.5 mg 7-05 tablet by [facility] o f 24 hr 00:00: mouth 2 [place] tablet 00 (two) Medical times Branch daily. Lidocaine 5 2021-0 Yes [id number] Apply to [facility] % cream 7-05 area(s) 2 [facility] of 00:00: (two) [place] 00 times Medical daily as Branch needed for Pain (scale 4-6). Apply 5g to affected areas BID PRN levothyroxi 2-0 Yes [id number] 150ug Take 1 [facility] ne 150 mcg 7-05 tablet by [facility] of tablet 00:00: mouth [place] 00 every Medical morning. Branch Diclofenac 2-0 Yes [id number] Apply to [facility] Sodium 7-05 area(s) 4 [facility] of (VOLTAREN) 00:00: (four) [place] 1 % gel 00 times Medical daily. Branch Apply 4 g qid glipiZIDE 2-0 Yes [id number] 2.5mg Take 1 [facility] XL 2.5 mg 7-05 tablet by it[facility] o f 24 hr 00:00: mouth 2 [place] tablet 00 (two) Medical times Branch daily. Lidocaine 5 2021- Yes [id number] Apply to [facility] % cream 7-05 area(s) 2 [facility] of 00:00: (two) [place] 00 times Medical daily as Branch needed for Pain (scale 4-6). Apply 5g to affected areas BID PRN levothyroxi 2021-0 Yes [id number] 150ug Take 1 [facility] ne 150 mcg 7-05 tablet by [facility] of tablet 00:00: mouth [place] 00 every Medical morning. Branch Diclofenac 2021-0 Yes [id number] Apply to [facility] Sodium 7-05 area(s) 4 [facility] of (VOLTAREN) 00:00: (four) [place] 1 % gel 00 times Medical daily. Branch Apply 4 g qid glipiZIDE 0 Yes [id number] 2.5mg Take 1 [facility] XL 2.5 mg 7-05 tablet by [facility] o f 24 hr 00:00: mouth 2 [place] tablet 00 (two) Medical times Branch daily. Lidocaine 5 Yes [id number] Apply to [facility] % cream 7-05 area(s) 2 [facility] of 00:00: (two) [place] 00 times Medical daily as Branch needed for Pain (scale 4-6). Apply 5g to affected areas BID PRN levothyroxi 2021-0 Yes [id number] 150ug Take 1 [facility] ne 150 mcg 7-05 tablet by [facility] of tablet 00:00: mouth [place] 00 every Medical morning. Branch Diclofenac 2021-0 Yes [id number] Apply to [facility] Sodium 7-05 area(s) 4 [facility] of (VOLTAREN) 00:00: (four) [place] 1 % gel 00 times Medical daily. Branch Apply 4 g qid glipiZIDE 2021-0 Yes [id number] 2.5mg Take 1 [facility] XL 2.5 mg 7-05 tablet by [facility] o f 24 hr 00:00: mouth 2 [place] tablet 00 (two) Medical times Branch daily. Lidocaine 5 2021-0 Yes [id number] Apply to [facility] % cream 7-05 area(s) 2 [facility] of 00:00: (two) [place] 00 times Medical daily as Branch needed for Pain (scale 4-6). Apply 5g to affected areas BID PRN levothyroxi 2021-0 Yes [id number] 150ug Take 1 [facility] ne 150 mcg 7-05 tablet by [facility] of tablet 00:00: mouth [place] 00 every Medical morning. Branch Diclofenac 2021-0 Yes [id number] Apply to [facility] Sodium 7-05 area(s) 4 [facility] of (VOLTAREN) 00:00: (four) [place] 1 % gel 00 times Medical daily. Branch Apply 4 g qid glipiZIDE 2021-0 Yes [id number] 2.5mg Take 1 [facility] XL 2.5 mg 7-05 tablet by [facility] o f 24 hr 00:00: mouth 2 [place] tablet 00 (two) Medical times Branch daily. Lidocaine 5 2021-0 Yes [id number] Apply to [facility] % cream 7-05 area(s) 2 [facility] of 00:00: (two) [place] 00 times Medical daily as Branch needed for Pain (scale 4-6). Apply 5g to affected areas BID PRN levothyroxi 2021-0 Yes [id number] 150ug Take 1 [facility] ne 150 mcg 7-05 tablet by [facility] of tablet 00:00: mouth [place] 00 every Medical morning. Branch Diclofenac 2021-0 Yes [id number] Apply to [facility] Sodium 7-05 area(s) 4 [facility] of (VOLTAREN) 00:00: (four) [place] 1 % gel 00 times Medical daily. Branch Apply 4 g qid glipiZIDE 2021-0 Yes [id number] 2.5mg Take 1 [facility] XL 2.5 mg 7-05 tablet by [facility] o f 24 hr 00:00: mouth 2 [place] tablet 00 (two) Medical times Branch daily. Lidocaine 5 2021-0 Yes [id number] Apply to [facility] % cream 7-05 area(s) 2 [facility] of 00:00: (two) [place] 00 times Medical daily as Branch needed for Pain (scale 4-6). Apply 5g to affected areas BID PRN levothyroxi 2021-0 Yes [id number] 150ug Take 1 [facility] ne 150 mcg 7-05 tablet by [facility] of tablet 00:00: mouth [place] 00 every Medical morning. Branch Diclofenac 2021-0 Yes [id number] Apply to [facility] Sodium 7-05 area(s) 4 [facility] of (VOLTAREN) 00:00: (four) [place] 1 % gel 00 times Medical daily. Branch Apply 4 g qid glipiZIDE 2-0 Yes [id number] 2.5mg Take 1 [facility] XL 2.5 mg 7-05 tablet by it[facility] o f 24 hr 00:00: mouth 2 [place] tablet 00 (two) Medical times Branch daily. Lidocaine 5 2021-0 Yes [id number] Apply to [facility] % cream 7-05 area(s) 2 [facility] of 00:00: (two) [place] 00 times Medical daily as Branch needed for Pain (scale 4-6). Apply 5g to affected areas BID PRN levothyroxi 2022-0 Yes [id number] 150ug Take 1 [facility] ne 150 mcg 7-05 tablet by [facility] of tablet 00:00: mouth [place] 00 every Medical morning. Branch Diclofenac 2021-0 Yes [id number] Apply to [facility] Sodium 7-05 area(s) 4 [facility] of (VOLTAREN) 00:00: (four) [place] 1 % gel 00 times Medical daily. Branch Apply 4 g qid glipiZIDE 2021-0 Yes [id number] 2.5mg Take 1 [facility] XL 2.5 mg 7-05 tablet by ity o f 24 hr 00:00: mouth 2 [place] tablet 00 (two) Medical times Branch daily. Lidocaine 5 2021-0 Yes [id number] Apply to [facility] % cream 7-05 area(s) 2 [facility] of 00:00: (two) [place] 00 times Medical daily as Branch needed for Pain (scale 4-6). Apply 5g to affected areas BID PRN levothyroxi 2-0 Yes [id number] 150ug Take 1 [facility] ne 150 mcg 7-05 tablet by [facility] of tablet 00:00: mouth [place] 00 every Medical morning. Branch Diclofenac 2021-0 Yes [id number] Apply to [facility] Sodium 7-05 area(s) 4 [facility] of (VOLTAREN) 00:00: (four) [place] 1 % gel 00 times Medical daily. Branch Apply 4 g qid glipiZIDE 2-0 Yes [id number] 2.5mg Take 1 [facility] XL 2.5 mg 7-05 tablet by it[facility] o f 24 hr 00:00: mouth 2 [place] tablet 00 (two) Medical times Branch daily. Lidocaine 5 2021-0 Yes [id number] Apply to [facility] % cream 7-05 area(s) 2 [facility] of 00:00: (two) [place] 00 times Medical daily as Branch needed for Pain (scale 4-6). Apply 5g to affected areas BID PRN levothyroxi 2022-0 Yes [id number] 150ug Take 1 [facility] ne 150 mcg 7-05 tablet by [facility] of tablet 00:00: mouth [place] 00 every Medical morning. Branch Diclofenac 2021-0 Yes [id number] Apply to [facility] Sodium 7-05 area(s) 4 [facility] of (VOLTAREN) 00:00: (four) [place] 1 % gel 00 times Medical daily. Branch Apply 4 g qid glipiZIDE 2-0 Yes [id number] 2.5mg Take 1 [facility] XL 2.5 mg 7-05 tablet by it[facility] o f 24 hr 00:00: mouth 2 [place] tablet 00 (two) Medical times Branch daily. Lidocaine 5 2021-0 Yes [id number] Apply to [facility] % cream 7-05 area(s) 2 [facility] of 00:00: (two) [place] 00 times Medical daily as Branch needed for Pain (scale 4-6). Apply 5g to affected areas BID PRN levothyroxi 2-0 Yes [id number] 150ug Take 1 [facility] ne 150 mcg 7-05 tablet by [facility] of tablet 00:00: mouth [place] 00 every Medical morning. Branch Diclofenac 2021-0 Yes [id number] Apply to [facility] Sodium 7-05 area(s) 4 [facility] of (VOLTAREN) 00:00: (four) [place] 1 % gel 00 times Medical daily. Branch Apply 4 g qid glipiZIDE 2-0 Yes [id number] 2.5mg Take 1 [facility] XL 2.5 mg 7-05 tablet by it[facility] o f 24 hr 00:00: mouth 2 [place] tablet 00 (two) Medical times Branch daily. Lidocaine 5 2021-0 Yes [id number] Apply to [facility] % cream 7-05 area(s) 2 [facility] of 00:00: (two) [place] 00 times Medical daily as Branch needed for Pain (scale 4-6). Apply 5g to affected areas BID PRN levothyroxi 2022-0 Yes [id number] 150ug Take 1 [facility] ne 150 mcg 7-05 tablet by [facility] of tablet 00:00: mouth [place] 00 every Medical morning. Branch Diclofenac 2-0 Yes [id number] Apply to [facility] Sodium 7-05 area(s) 4 [facility] of (VOLTAREN) 00:00: (four) [place] 1 % gel 00 times Medical daily. Branch Apply 4 g qid glipiZIDE 2-0 Yes [id number] 2.5mg Take 1 [facility] XL 2.5 mg 7-05 tablet by it[facility] o f 24 hr 00:00: mouth 2 [place] tablet 00 (two) Medical times Branch daily. Lidocaine 5 2021-0 Yes [id number] Apply to [facility] % cream 7-05 area(s) 2 [facility] of 00:00: (two) [place] 00 times Medical daily as Branch needed for Pain (scale 4-6). Apply 5g to affected areas BID PRN levothyroxi 2-0 Yes [id number] 150ug Take 1 [facility] ne 150 mcg 7-05 tablet by [facility] of tablet 00:00: mouth [place] 00 every Medical morning. Branch Diclofenac 2021-0 Yes [id number] Apply to [facility] Sodium 7-05 area(s) 4 [facility] of (VOLTAREN) 00:00: (four) [place] 1 % gel 00 times Medical daily. Branch Apply 4 g qid glipiZIDE 2021-0 Yes [id number] 2.5mg Take 1 [facility] XL 2.5 mg 7-05 tablet by it[facility] o f 24 hr 00:00: mouth 2 [place] tablet 00 (two) Medical times Branch daily. Lidocaine 5 2021-0 Yes [id number] Apply to [facility] % cream 7-05 area(s) 2 [facility] of 00:00: (two) [place] 00 times Medical daily as Branch needed for Pain (scale 4-6). Apply 5g to affected areas BID PRN levothyroxi 2-0 Yes [id number] 150ug Take 1 [facility] ne 150 mcg 7-05 tablet by [facility] of tablet 00:00: mouth [place] 00 every Medical morning. Branch Diclofenac 2-0 Yes [id number] Apply to [facility] Sodium 7-05 area(s) 4 [facility] of (VOLTAREN) 00:00: (four) [place] 1 % gel 00 times Medical daily. Branch Apply 4 g qid glipiZIDE 2-0 Yes [id number] 2.5mg Take 1 [facility] XL 2.5 mg 7-05 tablet by it[facility] o f 24 hr 00:00: mouth 2 [place] tablet 00 (two) Medical times Branch daily. Lidocaine 5 0 Yes [id number] Apply to [facility] % cream 7-05 area(s) 2 [facility] of 00:00: (two) [place] 00 times Medical daily as Branch needed for Pain (scale 4-6). Apply 5g to affected areas BID PRN levothyroxi 2021-0 Yes [id number] 150ug Take 1 [facility] ne 150 mcg 7-05 tablet by [facility] of tablet 00:00: mouth [place] 00 every Medical morning. Branch Diclofenac Yes [id number] Apply to [facility] Sodium 7-05 area(s) 4 [facility] of (VOLTAREN) 00:00: (four) [place] 1 % gel 00 times Medical daily. Branch Apply 4 g qid glipiZIDE 0 Yes [id number] 2.5mg Take 1 [facility] XL 2.5 mg 7-05 tablet by it[facility] o f 24 hr 00:00: mouth 2 [place] tablet 00 (two) Medical times Branch daily. Lidocaine 5 Yes [id number] Apply to [facility] % cream 7-05 area(s) 2 [facility] of 00:00: (two) [place] 00 times Medical daily as Branch needed for Pain (scale 4-6). Apply 5g to affected areas BID PRN levothyroxi 2021-0 2022- No [id number] 150ug Take 1 [facility] ne 150 mcg 7-05 01-05 tablet by [facility] of tablet 00:00: 00:00 mouth [place] 00 :00 every Medical morning. Branch Diclofenac 2021-0 2022- No [id number] Apply to [facility] Sodium 7-05 01-05 area(s) 4 [facility] of (VOLTAREN) 00:00: 00:00 (four) [place] 1 % gel 00 :00 times Medical daily. Branch Apply 4 g qid glipiZIDE 2021-0 3- No [id number] 2.5mg Take 1 [facility] XL 2.5 mg 7-05 01-05 tablet by [facility] of 24 hr 00:00: 00:00 mouth 2 [place] tablet 00 :00 (two) Medical times Branch daily. Lidocaine 5 2021-0 2022- No [id number] Apply to [facility] % cream 7-05 01-05 area(s) 2 [facility] of 00:00: 00:00 (two) [place] 00 :00 times Medical daily as Branch needed for Pain (scale 4-6). Apply 5g to affected areas BID PRN levothyroxi 2022- No [id number] 150ug Take 1 [facility] ne 150 mcg 09-05 tablet by [facility] of tablet 00:00: 00:00 mouth [place] 00 :00 every Medical morning. Branch Diclofenac 2022- No [id number] Apply to [facility] Sodium 09-05 area(s) 4 [facility] of (VOLTAREN) 00:00: 00:00 (four) [place] 1 % gel 00 :00 times Medical daily. Branch Apply 4 g qid glipiZIDE 2022- No [id number] 2.5mg Take 1 [facility] XL 2.5 mg 09-05 tablet by [facility] of 24 hr 00:00: 00:00 mouth 2 [place] tablet 00 :00 (two) Medical times Branch daily. Lidocaine 5 2022- No [id number] Apply to [facility] % cream 09-05 area(s) 2 [facility] of 00:00: 00:00 (two) [place] 00 :00 times Medical daily as Branch needed for Pain (scale 4-6). Apply 5g to affected areas BID PRN levothyroxi 2022- No [id number] 150ug Take 1 [facility] ne 150 mcg 09-05 tablet by [facility] of tablet 00:00: 00:00 mouth [place] 00 :00 every Medical morning. Branch Diclofenac 2022- No [id number] Apply to [facility] Sodium 09-05 area(s) 4 [facility] of (VOLTAREN) 00:00: 00:00 (four) [place] 1 % gel 00 :00 times Medical daily. Branch Apply 4 g qid glipiZIDE 2022- No [id number] 2.5mg Take 1 [facility] XL 2.5 mg 09-05 tablet by [facility] of 24 hr 00:00: 00:00 mouth 2 [place] tablet 00 :00 (two) Medical times Branch daily. Lidocaine 5 2022- No [id number] Apply to [facility] % cream 09-05 area(s) 2 [facility] of 00:00: 00:00 (two) [place] 00 :00 times Medical daily as Branch needed for Pain (scale 4-6). Apply 5g to affected areas BID PRN levothyroxi 2022- No [id number] 150ug Take 1 [facility] ne 150 mcg 09-05 tablet by [facility] of tablet 00:00: 00:00 mouth [place] 00 :00 every Medical morning. Branch Diclofenac 2022- No [id number] Apply to [facility] Sodium 09-05 area(s) 4 [facility] of (VOLTAREN) 00:00: 00:00 (four) [place] 1 % gel 00 :00 times Medical daily. Branch Apply 4 g qid glipiZIDE 2022- No [id number] 2.5mg Take 1 [facility] XL 2.5 mg 09-05 tablet by [facility] of 24 hr 00:00: 00:00 mouth 2 [place] tablet 00 :00 (two) Medical times Branch daily. Lidocaine 5 2022- No [id number] Apply to [facility] % cream 09-05 area(s) 2 [facility] of 00:00: 00:00 (two) [place] 00 :00 times Medical daily as Branch needed for Pain (scale 4-6). Apply 5g to affected areas BID PRN baclofen 10 2021- No [id number] 10mg Take 1 [facility] mg tablet 09-05 tablet by [facility] of 00:00: 00:00 mouth 3 [place] 00 :00 (three) Medical times Branch daily as needed for Pain (scale 7-10). docusate 2021- No [id number] 100mg Take 1 [facility] 100 mg -07 11-05 capsule by [facility] of capsule 00:00: 00:00 mouth 2 [place] 00 :00 (two) Medical times Branch daily. docusate 2021- No [id number] 100mg Take 1 [facility] n[facility] 100 mg 7- 10-05 capsule by [facility] of capsule 00:00: 00:00 mouth 2 [place] 00 :00 (two) Medical times Branch daily. docusate 2021- No [id number] 100mg Take 1 [facility] 100 mg 7- 10-05 capsule by [facility] of capsule 00:00: 00:00 mouth 2 [place] 00 :00 (two) Medical times Branch daily. pravastatin 2021-0 Yes [id number] 40mg Take 1 [facility] 40 mg 3-30 tablet by [facility] of tablet 00:00: mouth at [place] 00 bedtime. Medical Branch tamsulosin 2021-0 Yes [id number] .4mg Take 1 [facility] 0.4 mg 24 3-30 9102 capsule by [facility] of hr capsule 00:00: mouth [place] 00 daily. Medical Branch ergocalcife 2021-0 Yes [id number] Take 1 [facility] rol, 3-30 capsule by [facility] of vitamin d2, 00:00: mouth [place] 1,250 mcg 00 weekly. Medical (50,000 Branch unit) capsule traZODone 2021-0 Yes [id number] 50mg Take 1 [facility] nivers 50 mg 3-30 tablet by [facility] of tablet 00:00: mouth at [place] 00 bedtime. Medical Branch pravastatin 2021-0 Yes [id number] 40mg Take 1 [facility] 40 mg 3-30 tablet by [facility] of tablet 00:00: mouth at [place] 00 bedtime. Medical Branch tamsulosin 2021-0 Yes [id number] .4mg Take 1 [facility] 0.4 mg 24 3-30 9102 capsule by [facility]y of hr capsule 00:00: mouth [place] 00 daily. Medical Branch ergocalcife 2021-0 Yes [id number] Take 1 [facility] rol, 3-30 capsule by ity of vitamin d2, 00:00: mouth [place] 1,250 mcg 00 weekly. Medical (50,000 Branch unit) capsule traZODone 2021-0 Yes [id number] 50mg Take 1 [facility] nivers 50 mg 3-30 tablet by [facility] of tablet 00:00: mouth at [place] 00 bedtime. Medical Branch pravastatin 2021-0 Yes [id number] 40mg Take 1 [facility] 40 mg 3-30 tablet by [facility] of tablet 00:00: mouth at [place] 00 bedtime. Medical Branch tamsulosin 2021-0 Yes [id number] .4mg Take 1 [facility] 0.4 mg 24 3-30 9102 capsule by [facility]y of hr capsule 00:00: mouth [place] 00 daily. Medical Branch ergocalcife 2021-0 Yes [id number] Take 1 [facility] rol, 3-30 capsule by ity of vitamin d2, 00:00: mouth [place] 1,250 mcg 00 weekly. Medical (50,000 Branch unit) capsule traZODone 2022-0 Yes [id number] 50mg Take 1 [facility] nivers 50 mg 3-30 tablet by [facility] of tablet 00:00: mouth at [place] 00 bedtime. Medical Branch pravastatin 0 Yes [id number] 40mg Take 1 [facility] 40 mg 3-30 tablet by [facility] of tablet 00:00: mouth at [place] 00 bedtime. Medical Branch tamsulosin 0 Yes [id number] .4mg Take 1 [facility] 0.4 mg 24 3-30 9102 capsule by ity of hr capsule 00:00: mouth [place] 00 daily. Medical Branch ergocalcife 0 Yes [id number] Take 1 [facility] rol, 3-30 capsule by ity of vitamin d2, 00:00: mouth [place] 1,250 mcg 00 weekly. Medical (50,000 Branch unit) capsule traZODone Yes [id number] 50mg Take 1 [facility] nivers 50 mg 3-30 tablet by [facility]y of tablet 00:00: mouth at [place] 00 bedtime. Medical Branch pravastatin 0 Yes [id number] 40mg Take 1 [facility] 40 mg 3-30 tablet by [facility]y of tablet 00:00: mouth at [place] 00 bedtime. Medical Branch tamsulosin 0 Yes [id number] .4mg Take 1 [facility] 0.4 mg 24 3-30 9102 capsule by [facility]y of hr capsule 00:00: mouth [place] 00 daily. Medical Branch ergocalcife 0 Yes [id number] Take 1 [facility] rol, 3-30 capsule by ity of vitamin d2, 00:00: mouth [place] 1,250 mcg 00 weekly. Medical (50,000 Branch unit) capsule traZODone 0 Yes [id number] 50mg Take 1 [facility]ivers 50 mg 3-30 tablet by [facility] of tablet 00:00: mouth at [place] 00 bedtime. Medical Branch pravastatin 0 Yes [id number] 40mg Take 1 [facility] 40 mg 3-30 tablet by [facility]y of tablet 00:00: mouth at [place] 00 bedtime. Medical Branch tamsulosin 0 Yes [id number] .4mg Take 1 [facility] 0.4 mg 24 3-30 9102 capsule by [facility]y of hr capsule 00:00: mouth [place] 00 daily. Medical Branch ergocalcife 2022-0 Yes [id number] Take 1 [facility] rol, 3-30 capsule by ity of vitamin d2, 00:00: mouth [place] 1,250 mcg 00 weekly. Medical (50,000 Branch unit) capsule traZODone 2021-0 Yes [id number] 50mg Take 1 [facility]ivers 50 mg 3-30 tablet by [facility]y of tablet 00:00: mouth at [place] 00 bedtime. Medical Branch pravastatin 2021-0 Yes [id number] 40mg Take 1 [facility] 40 mg 3-30 tablet by [facility]y of tablet 00:00: mouth at [place] 00 bedtime. Medical Branch tamsulosin 0 Yes [id number] .4mg Take 1 [facility] 0.4 mg 24 3-30 9102 capsule by [facility]y of hr capsule 00:00: mouth [place] 00 daily. Medical Branch ergocalcife 2021-0 Yes [id number] Take 1 [facility] rol, 3-30 capsule by ity of vitamin d2, 00:00: mouth [place] 1,250 mcg 00 weekly. Medical (50,000 Branch unit) capsule traZODone 2021-0 Yes [id number] 50mg Take 1 [facility] nivers 50 mg 3-30 tablet by [facility]y of tablet 00:00: mouth at [place] 00 bedtime. Medical Branch pravastatin 2021-0 Yes [id number] 40mg Take 1 [facility] 40 mg 3-30 tablet by [facility]y of tablet 00:00: mouth at [place] 00 bedtime. Medical Branch tamsulosin 2021-0 Yes [id number] .4mg Take 1 [facility] 0.4 mg 24 3-30 9102 capsule by [facility]y of hr capsule 00:00: mouth [place] 00 daily. Medical Branch ergocalcife 2021-0 Yes [id number] Take 1 [facility] rol, 3-30 capsule by ity of vitamin d2, 00:00: mouth [place] 1,250 mcg 00 weekly. Medical (50,000 Branch unit) capsule traZODone 2021-0 Yes [id number] 50mg Take 1 [facility]ivers 50 mg 3-30 tablet by [facility]y of tablet 00:00: mouth at [place] 00 bedtime. Medical Branch pravastatin 2021-0 Yes [id number] 40mg Take 1 [facility] 40 mg 3-30 tablet by [facility]y of tablet 00:00: mouth at [place] 00 bedtime. Medical Branch tamsulosin 0 Yes [id number] .4mg Take 1 [facility] 0.4 mg 24 3-30 9102 capsule by ity of hr capsule 00:00: mouth [place] 00 daily. Medical Branch ergocalcife 0 Yes [id number] Take 1 [facility] rol, 3-30 capsule by ity of vitamin d2, 00:00: mouth [place] 1,250 mcg 00 weekly. Medical (50,000 Branch unit) capsule traZODone 2021-0 Yes [id number] 50mg Take 1 [facility] 50 mg 3-30 tablet by [facility]y of tablet 00:00: mouth at [place] 00 bedtime. Medical Branch pravastatin 0 Yes [id number] 40mg Take 1 [facility] 40 mg 3-30 tablet by [facility]y of tablet 00:00: mouth at [place] 00 bedtime. Medical Branch tamsulosin Yes [id number] .4mg Take 1 [facility] 0.4 mg 24 3-30 9102 capsule by ity of hr capsule 00:00: mouth [place] 00 daily. Medical Branch ergocalcife 0 Yes [id number] Take 1 [facility] rol, 3-30 capsule by ity of vitamin d2, 00:00: mouth [place] 1,250 mcg 00 weekly. Medical (50,000 Branch unit) capsule traZODone 0 Yes [id number] 50mg Take 1 [facility] nivers 50 mg 3-30 tablet by ity of tablet 00:00: mouth at [place] 00 bedtime. Medical Branch pravastatin 2021-0 Yes [id number] 40mg Take 1 [facility] 40 mg 3-30 tablet by ity of tablet 00:00: mouth at [place] 00 bedtime. Medical Branch tamsulosin 0 Yes [id number] .4mg Take 1 [facility] 0.4 mg 24 3-30 9102 capsule by ity of hr capsule 00:00: mouth [place] 00 daily. Medical Branch ergocalcife 0 Yes [id number] Take 1 [facility] rol, 3-30 capsule by ity of vitamin d2, 00:00: mouth [place] 1,250 mcg 00 weekly. Medical (50,000 Branch unit) capsule traZODone 2021-0 Yes [id number] 50mg Take 1 [facility]ivers 50 mg 3-30 tablet by [facility]y of tablet 00:00: mouth at [place] 00 bedtime. Medical Branch pravastatin 2021-0 Yes [id number] 40mg Take 1 [facility] 40 mg 3-30 tablet by [facility]y of tablet 00:00: mouth at [place] 00 bedtime. Medical Branch tamsulosin 2021-0 Yes [id number] .4mg Take 1 [facility] 0.4 mg 24 3-30 9102 capsule by ity of hr capsule 00:00: mouth [place] 00 daily. Medical Branch ergocalcife 2021-0 Yes [id number] Take 1 [facility] rol, 3-30 capsule by ity of vitamin d2, 00:00: mouth [place] 1,250 mcg 00 weekly. Medical (50,000 Branch unit) capsule traZODone 2021-0 Yes [id number] 50mg Take 1 [facility] nivers 50 mg 3-30 tablet by [facility]y of tablet 00:00: mouth at [place] 00 bedtime. Medical Branch pravastatin 2021-0 Yes [id number] 40mg Take 1 [facility] 40 mg 3-30 tablet by [facility]y of tablet 00:00: mouth at [place] 00 bedtime. Medical Branch tamsulosin 2021-0 Yes [id number] .4mg Take 1 [facility] 0.4 mg 24 3-30 9102 capsule by [facility]y of hr capsule 00:00: mouth [place] 00 daily. Medical Branch ergocalcife 2021-0 Yes [id number] Take 1 [facility] rol, 3-30 capsule by ity of vitamin d2, 00:00: mouth [place] 1,250 mcg 00 weekly. Medical (50,000 Branch unit) capsule traZODone 2021-0 Yes [id number] 50mg Take 1 [facility] nivers 50 mg 3-30 tablet by ity of tablet 00:00: mouth at [place] 00 bedtime. Medical Branch pravastatin 2021-0 Yes [id number] 40mg Take 1 [facility] 40 mg 3-30 tablet by [facility] tablet 00:00: mouth at [place] 00 bedtime. [facility] tamsulosin 2021-0 Yes [id number] .4mg Take 1 [facility] 0.4 mg 24 3-30 9102 capsule by [facility] of hr capsule 00:00: mouth [place] 00 daily. [facility] ergocalcife 2021-0 Yes [id number] Take 1 [facility] rol, 3-30 capsule by [facility] of vitamin d2, 00:00: mouth [place] 1,250 mcg 00 weekly. [facility] (50,000 Branch unit) capsule traZODone 2021-0 Yes [id number] 50mg Take 1 [facility] 50 mg 3-30 tablet by [facility] tablet 00:00: mouth at [place] 00 bedtime. [facility] pravastatin 2021-0 Yes [id number] 40mg Take 1 [facility] 40 mg 3-30 tablet by [facility] of tablet 00:00: mouth at [place] 00 bedtime. [facility] tamsulosin 2021-0 Yes [id number] .4mg Take 1 [facility] 0.4 mg 24 3-30 9102 capsule by [facility] of hr capsule 00:00: mouth [place] 00 daily. [facility] ergocalcife 2021-0 Yes [id number] Take 1 [facility] rol, 3-30 capsule by [facility] of vitamin d2, 00:00: mouth [place] 1,250 mcg 00 weekly. [facility] (50,000 Branch unit) capsule traZODone 2021-0 Yes [id number] 50mg Take 1 [facility] 50 mg 3-30 tablet by [facility] tablet 00:00: mouth at [place] 00 bedtime. [facility] pravastatin 2021-0 Yes [id number] 40mg Take 1 [facility] 40 mg 3-30 tablet by [facility] tablet 00:00: mouth at [place] 00 bedtime. [facility] tamsulosin 2021-0 Yes [id number] .4mg Take 1 [facility] 0.4 mg 24 3-30 9102 capsule by [facility] of hr capsule 00:00: mouth [place] 00 daily. [facility] ergocalcife 2021-0 Yes [id number] Take 1 [facility] rol, 3-30 capsule by [facility] of vitamin d2, 00:00: mouth [place] 1,250 mcg 00 weekly. [facility] (50,000 [facility] unit) capsule traZODone 2021-0 Yes [id number] 50mg Take 1 [facility] 50 mg 3-30 tablet by [facility] of tablet 00:00: mouth at [place] 00 bedtime. [facility] pravastatin 2021-0 Yes [id number] 40mg Take 1 [facility] 40 mg 3-30 tablet by [facility] of tablet 00:00: mouth at [place] 00 bedtime. [facility] tamsulosin 2021-0 Yes [id number] .4mg Take 1 [facility] 0.4 mg 24 3-30 9102 capsule by [facility] of hr capsule 00:00: mouth [place] 00 daily. [facility] ergocalcife 2021-0 Yes [id number] Take 1 [facility] rol, 3-30 capsule by [facility] of vitamin d2, 00:00: mouth [place] 1,250 mcg 00 weekly. [facility] (50,000 [facility] unit) capsule traZODone 2021-0 Yes [id number] 50mg Take 1 [facility] 50 mg 3-30 tablet by [facility] of tablet 00:00: mouth at [place] 00 bedtime. [facility] pravastatin 2021-0 Yes [id number] 40mg Take 1 [facility] 40 mg 3-30 tablet by [facility] of tablet 00:00: mouth at [place] 00 bedtime. [facility] tamsulosin 0 Yes [id number] .4mg Take 1 [facility] 0.4 mg 24 3-30 9102 capsule by [facility] of hr capsule 00:00: mouth [place] 00 daily. [facility] ergocalcife 0 Yes [id number] Take 1 [facility] rol, 3-30 capsule by [facility] of vitamin d2, 00:00: mouth [place] 1,250 mcg 00 weekly. [facility] (50,000 [facility] unit) capsule traZODone 2021-0 Yes [id number] 50mg Take 1 [facility] 50 mg 3-30 tablet by [facility] of tablet 00:00: mouth at [place] 00 bedtime. [facility] pravastatin 0 Yes [id number] 40mg Take 1 [facility] 40 mg 3-30 tablet by [facility] of tablet 00:00: mouth at [place] 00 bedtime. [facility] tamsulosin 2021-0 Yes [id number] .4mg Take 1 [facility] 0.4 mg 24 3-30 9102 capsule by [facility] of hr capsule 00:00: mouth [place] 00 daily. [facility] ergocalcife 2021-0 Yes [id number] Take 1 [facility] rol, 3-30 capsule by [facility] of vitamin d2, 00:00: mouth [place] 1,250 mcg 00 weekly. [facility] (50,000 [facility] unit) capsule traZODone 2021-0 Yes [id number] 50mg Take 1 [facility] 50 mg 3-30 tablet by [facility] of tablet 00:00: mouth at [place] 00 bedtime. [facility] pravastatin 2021-0 Yes [id number] 40mg Take 1 [facility] 40 mg 3-30 tablet by [facility] of tablet 00:00: mouth at [place] 00 bedtime. [facility] tamsulosin 2021-0 Yes [id number] .4mg Take 1 [facility] 0.4 mg 24 3-30 9102 capsule by [facility] of hr capsule 00:00: mouth [place] 00 daily. [facility] ergocalcife 2021-0 Yes [id number] Take 1 [facility] rol, 3-30 capsule by it[facility] of vitamin d2, 00:00: mouth [place] 1,250 mcg 00 weekly. [facility] (50,000 [facility] unit) capsule traZODone 2021-0 Yes [id number] 50mg Take 1 [facility] 50 mg 3-30 tablet by [facility] of tablet 00:00: mouth at [place] 00 bedtime. [facility] pravastatin 2021-0 Yes [id number] 40mg Take 1 [facility] 40 mg 3-30 tablet by [facility] of tablet 00:00: mouth at [place] 00 bedtime. [facility] tamsulosin 2021-0 Yes [id number] .4mg Take 1 [facility] 0.4 mg 24 3-30 9102 capsule by [facility] of hr capsule 00:00: mouth [place] 00 daily. [facility] ergocalcife 2021-0 Yes [id number] Take 1 [facility] rol, 3-30 capsule by ity of vitamin d2, 00:00: mouth [place] 1,250 mcg 00 weekly. [facility] (50,000 [facility] unit) capsule traZODone 2021-0 Yes [id number] 50mg Take 1 [facility] 50 mg 3-30 tablet by [facility] of tablet 00:00: mouth at [place] 00 bedtime. [facility] pravastatin 2021-0 Yes [id number] 40mg Take 1 [facility] 40 mg 3-30 tablet by [facility] of tablet 00:00: mouth at [place] 00 bedtime. [facility] tamsulosin 2021-0 Yes [id number] .4mg Take 1 [facility] 0.4 mg 24 3-30 9102 capsule by [facility] of hr capsule 00:00: mouth [place] 00 daily. [facility] ergocalcife 2021-0 Yes [id number] Take 1 [facility] rol, 3-30 capsule by [facility] of vitamin d2, 00:00: mouth [place] 1,250 mcg 00 weekly. [facility] (50,000 [facility] unit) capsule traZODone 2021-0 Yes [id number] 50mg Take 1 [facility] 50 mg 3-30 tablet by [facility] of tablet 00:00: mouth at [place] 00 bedtime. [facility] pravastatin 2021-0 Yes [id number] 40mg Take 1 [facility] 40 mg 3-30 tablet by [facility] of tablet 00:00: mouth at [place] 00 bedtime. [facility] tamsulosin 0 Yes [id number] .4mg Take 1 [facility] 0.4 mg 24 3-30 9102 capsule by [facility] of hr capsule 00:00: mouth [place] 00 daily. [facility] ergocalcife 2021-0 Yes [id number] Take 1 [facility] rol, 3-30 capsule by ity of vitamin d2, 00:00: mouth [place] 1,250 mcg 00 weekly. [facility] (50,000 [facility] unit) capsule traZODone 2021-0 Yes [id number] 50mg Take 1 [facility] 50 mg 3-30 tablet by [facility] of tablet 00:00: mouth at [place] 00 bedtime. [facility] pravastatin 2021-0 Yes [id number] 40mg Take 1 [facility] 40 mg 3-30 tablet by [facility] of tablet 00:00: mouth at [place] 00 bedtime. [facility] tamsulosin 0 Yes [id number] .4mg Take 1 [facility] 0.4 mg 24 3-30 9102 capsule by [facility] of hr capsule 00:00: mouth [place] 00 daily. [facility] ergocalcife 0 Yes [id number] Take 1 [facility] rol, 3-30 capsule by [facility] of vitamin d2, 00:00: mouth [place] 1,250 mcg 00 weekly. [facility] (50,000 [facility] unit) capsule traZODone 2021-0 Yes [id number] 50mg Take 1 [facility] 50 mg 3-30 tablet by [facility] of tablet 00:00: mouth at [place] 00 bedtime. [facility] pravastatin 2021-0 Yes [id number] 40mg Take 1 [facility] 40 mg 3-30 tablet by [facility] of tablet 00:00: mouth at [place] 00 bedtime. [facility] tamsulosin 2021-0 Yes [id number] .4mg Take 1 [facility] 0.4 mg 24 3-30 9102 capsule by [facility] of hr capsule 00:00: mouth [place] 00 daily. [facility] ergocalcife 2021-0 Yes [id number] Take 1 [facility] rol, 3-30 capsule by ity of vitamin d2, 00:00: mouth [place] 1,250 mcg 00 weekly. [facility] (50,000 [facility] unit) capsule traZODone 2021-0 Yes [id number] 50mg Take 1 [facility] 50 mg 3-30 tablet by [facility] of tablet 00:00: mouth at [place] 00 bedtime. [facility] pravastatin 2021-0 Yes [id number] 40mg Take 1 [facility] 40 mg 3-30 tablet by [facility] of tablet 00:00: mouth at [place] 00 bedtime. [facility] tamsulosin 0 Yes [id number] .4mg Take 1 [facility] 0.4 mg 24 3-30 9102 capsule by [facility] of hr capsule 00:00: mouth [place] 00 daily. [facility] ergocalcife 0 Yes [id number] Take 1 [facility] rol, 3-30 capsule by [facility] of vitamin d2, 00:00: mouth [place] 1,250 mcg 00 weekly. [facility] (50,000 Branch unit) capsule traZODone 2021-0 Yes [id number] 50mg Take 1 [facility] 50 mg 3-30 tablet by [facility] of tablet 00:00: mouth at [place] 00 bedtime. [facility] pravastatin 0 Yes [id number] 40mg Take 1 [facility] 40 mg 3-30 tablet by [facility] of tablet 00:00: mouth at [place] 00 bedtime. [facility] tamsulosin 0 Yes [id number] .4mg Take 1 [facility] 0.4 mg 24 3-30 9102 capsule by [facility] of hr capsule 00:00: mouth [place] 00 daily. [facility] ergocalcife 2021-0 Yes [id number] Take 1 [facility] rol, 3-30 capsule by [facility] of vitamin d2, 00:00: mouth [place] 1,250 mcg 00 weekly. [facility] (50,000 Branch unit) capsule traZODone 2021-0 Yes [id number] 50mg Take 1 [facility] 50 mg 3-30 tablet by [facility] of tablet 00:00: mouth at [place] 00 bedtime. [facility] pravastatin 2021-0 Yes [id number] 40mg Take 1 [facility] 40 mg 3-30 tablet by [facility] of tablet 00:00: mouth at [place] 00 bedtime. [facility] tamsulosin 2021-0 Yes [id number] .4mg Take 1 [facility] 0.4 mg 24 3-30 9102 capsule by [facility] of hr capsule 00:00: mouth [place] 00 daily. [facility] ergocalcife 2021-0 Yes [id number] Take 1 [facility] rol, 3-30 capsule by [facility] of vitamin d2, 00:00: mouth [place] 1,250 mcg 00 weekly. [facility] (50,000 [facility] unit) capsule traZODone 2021-0 Yes [id number] 50mg Take 1 [facility] 50 mg 3-30 tablet by [facility] of tablet 00:00: mouth at [place] 00 bedtime. [facility] pravastatin 2021-0 Yes [id number] 40mg Take 1 [facility] 40 mg 3-30 tablet by [facility] of tablet 00:00: mouth at [place] 00 bedtime. [facility] tamsulosin 0 Yes [id number] .4mg Take 1 [facility] 0.4 mg 24 3-30 9102 capsule by [facility] of hr capsule 00:00: mouth [place] 00 daily. [facility] ergocalcife 2021-0 Yes [id number] Take 1 [facility] rol, 3-30 capsule by ity of vitamin d2, 00:00: mouth [place] 1,250 mcg 00 weekly. [facility] (50,000 Branch unit) capsule traZODone 2021-0 Yes [id number] 50mg Take 1 [facility] 50 mg 3-30 tablet by [facility] of tablet 00:00: mouth at [place] 00 bedtime. [facility] pravastatin 2021-0 Yes [id number] 40mg Take 1 [facility] 40 mg 3-30 tablet by [facility] of tablet 00:00: mouth at [place] 00 bedtime. [facility] tamsulosin 2021-0 Yes [id number] .4mg Take 1 [facility] 0.4 mg 24 3-30 9102 capsule by ity of hr capsule 00:00: mouth [place] 00 daily. [facility] ergocalcife 2021-0 Yes [id number] Take 1 [facility] rol, 3-30 capsule by ity of vitamin d2, 00:00: mouth [place] 1,250 mcg 00 weekly. [facility] (50,000 Branch unit) capsule traZODone 2021-0 Yes [id number] 50mg Take 1 [facility] 50 mg 3-30 tablet by [facility] of tablet 00:00: mouth at [place] 00 bedtime. [facility] pravastatin 2021-0 Yes [id number] 40mg Take 1 [facility] 40 mg 3-30 tablet by [facility] of tablet 00:00: mouth at [place] 00 bedtime. [facility] tamsulosin 0 Yes [id number] .4mg Take 1 [facility] 0.4 mg 24 3-30 9102 capsule by [facility] of hr capsule 00:00: mouth [place] 00 daily. [facility] ergocalcife 2021-0 Yes [id number] Take 1 [facility] rol, 3-30 capsule by ity of vitamin d2, 00:00: mouth [place] 1,250 mcg 00 weekly. [facility] (50,000 Branch unit) capsule traZODone 2021-0 Yes [id number] 50mg Take 1 [facility] 50 mg 3-30 tablet by [facility] of tablet 00:00: mouth at [place] 00 bedtime. [facility] pravastatin Yes [id number] 40mg Take 1 [facility] 40 mg 3-30 tablet by [facility] of tablet 00:00: mouth at [place] 00 bedtime. [facility] tamsulosin 0 Yes [id number] .4mg Take 1 [facility] 0.4 mg 24 3-30 9102 capsule by ity of hr capsule 00:00: mouth [place] 00 daily. [facility] ergocalcife 0 Yes [id number] Take 1 [facility] rol, 3-30 capsule by ity of vitamin d2, 00:00: mouth [place] 1,250 mcg 00 weekly. [facility] (50,000 Branch unit) capsule traZODone 0 Yes [id number] 50mg Take 1 [facility] 50 mg 3-30 tablet by [facility] of tablet 00:00: mouth at [place] 00 bedtime. [facility] tamsulosin 0 Yes [id number] .4mg Take 1 [facility] 0.4 mg 24 3-30 9102 capsule by ity of hr capsule 00:00: mouth [place] 00 daily. [facility] ergocalcife 0 Yes [id number] Take 1 [facility] rol, 3-30 capsule by ity of vitamin d2, 00:00: mouth [place] 1,250 mcg 00 weekly. [facility] (50,000 Branch unit) capsule traZODone 2021-0 Yes [id number] 50mg Take 1 [facility] 50 mg 3-30 tablet by [facility] of tablet 00:00: mouth at [place] 00 bedtime. [facility] tamsulosin 2022-0 Yes [id number] .4mg Take 1 [facility] 0.4 mg 24 3-30 9102 capsule by ity of hr capsule 00:00: mouth [place] 00 daily. [facility] ergocalcife 2021-0 Yes [id number] Take 1 [facility] rol, 3-30 capsule by it[facility] of vitamin d2, 00:00: mouth [place] 1,250 mcg 00 weekly. [facility] (50,000 Branch unit) capsule traZODone 2021-0 Yes [id number] 50mg Take 1 [facility] 50 mg 3-30 tablet by [facility] of tablet 00:00: mouth at [place] 00 bedtime. [facility] tamsulosin 2021-0 Yes [id number] .4mg Take 1 [facility] 0.4 mg 24 3-30 9102 capsule by ity of hr capsule 00:00: mouth [place] 00 daily. [facility] ergocalcife 2021-0 Yes [id number] Take 1 [facility] rol, 3-30 capsule by ity of vitamin d2, 00:00: mouth [place] 1,250 mcg 00 weekly. [facility] (50,000 Branch unit) capsule traZODone 2021-0 Yes [id number] 50mg Take 1 [facility] 50 mg 3-30 tablet by [facility] of tablet 00:00: mouth at [place] 00 bedtime. [facility] tamsulosin 2021-0 Yes [id number] .4mg Take 1 [facility] 0.4 mg 24 3-30 9102 capsule by [facility]y of hr capsule 00:00: mouth [place] 00 daily. [facility] ergocalcife 2021-0 Yes [id number] Take 1 [facility] rol, 3-30 capsule by it[facility] of vitamin d2, 00:00: mouth [place] 1,250 mcg 00 weekly. [facility] (50,000 Branch unit) capsule traZODone 2021-0 Yes [id number] 50mg Take 1 [facility] 50 mg 3-30 tablet by [facility] of tablet 00:00: mouth at [place] 00 bedtime. [facility] tamsulosin 2021-0 Yes [id number] .4mg Take 1 [facility] 0.4 mg 24 3-30 9102 capsule by ity of hr capsule 00:00: mouth [place] 00 daily. [facility] ergocalcife 2021-0 Yes [id number] Take 1 [facility] rol, 3-30 capsule by ity of vitamin d2, 00:00: mouth [place] 1,250 mcg 00 weekly. [facility] (50,000 Branch unit) capsule traZODone 2021-0 Yes [id number] 50mg Take 1 [facility] 50 mg 3-30 tablet by [facility] of tablet 00:00: mouth at [place] 00 bedtime. [facility] tamsulosin 2021-0 Yes [id number] .4mg Take 1 [facility] 0.4 mg 24 3-30 9102 capsule by ity of hr capsule 00:00: mouth [place] 00 daily. [facility] ergocalcife 2021-0 Yes [id number] Take 1 [facility] rol, 3-30 capsule by ity of vitamin d2, 00:00: mouth [place] 1,250 mcg 00 weekly. [facility] (50,000 Branch unit) capsule traZODone 0 Yes [id number] 50mg Take 1 [facility] n[facility] 50 mg 3-30 tablet by it[facility] of tablet 00:00: mouth at [place] 00 bedtime. [facility] tamsulosin 0 Yes [id number] .4mg Take 1 [facility] 0.4 mg 24 3-30 9102 capsule by ity of hr capsule 00:00: mouth [place] 00 daily. [facility] ergocalcife 2021-0 Yes [id number] Take 1 [facility] rol, 3-30 capsule by ity of vitamin d2, 00:00: mouth [place] 1,250 mcg 00 weekly. [facility] (50,000 Branch unit) capsule traZODone 2021-0 Yes [id number] 50mg Take 1 [facility] n[facility] 50 mg 3-30 tablet by [facility] of tablet 00:00: mouth at [place] 00 bedtime. [facility] tamsulosin 0 Yes [id number] .4mg Take 1 [facility] 0.4 mg 24 3-30 9102 capsule by ity of hr capsule 00:00: mouth [place] 00 daily. [facility] ergocalcife 2021-0 Yes [id number] Take 1 [facility] rol, 3-30 capsule by ity of vitamin d2, 00:00: mouth [place] 1,250 mcg 00 weekly. [facility] (50,000 Branch unit) capsule traZODone 2021-0 Yes [id number] 50mg Take 1 [facility] n[facility] 50 mg 3-30 tablet by [facility] of tablet 00:00: mouth at [place] 00 bedtime. [facility] tamsulosin 2021-0 Yes [id number] .4mg Take 1 [facility] 0.4 mg 24 3-30 9102 capsule by ity of hr capsule 00:00: mouth [place] 00 daily. [facility] ergocalcife 2021-0 Yes [id number] Take 1 [facility] rol, 3-30 capsule by ity of vitamin d2, 00:00: mouth [place] 1,250 mcg 00 weekly. [facility] (50,000 Branch unit) capsule traZODone 2021-0 Yes [id number] 50mg Take 1 [facility] n[facility] 50 mg 3-30 tablet by [facility] of tablet 00:00: mouth at [place] 00 bedtime. [facility] tamsulosin 2021-0 Yes [id number] .4mg Take 1 [facility] 0.4 mg 24 3-30 9102 capsule by ity of hr capsule 00:00: mouth [place] 00 daily. [facility] ergocalcife 2021-0 Yes [id number] Take 1 [facility] rol, 3-30 capsule by ity of vitamin d2, 00:00: mouth [place] 1,250 mcg 00 weekly. [facility] (50,000 Branch unit) capsule traZODone 2021-0 Yes [id number] 50mg Take 1 [facility] n[facility] 50 mg 3-30 tablet by [facility] of tablet 00:00: mouth at [place] 00 bedtime. [facility] tamsulosin 2021-0 Yes [id number] .4mg Take 1 [facility] 0.4 mg 24 3-30 9102 capsule by ity of hr capsule 00:00: mouth [place] 00 daily. [facility] traZODone 2021-0 Yes [id number] 50mg Take 1 [facility] n[facility] 50 mg 3-30 tablet by [facility] of tablet 00:00: mouth at [place] 00 bedtime. [facility] tamsulosin 2021-0 Yes [id number] .4mg Take 1 [facility] 0.4 mg 24 3-30 9102 capsule by ity of hr capsule 00:00: mouth [place] 00 daily. [facility] traZODone 2021-0 Yes [id number] 50mg Take 1 [facility] 50 mg 3-30 tablet by [facility] of tablet 00:00: mouth at [place] 00 bedtime. [facility] tamsulosin 2021-0 Yes [id number] .4mg Take 1 [facility] 0.4 mg 24 3-30 9102 capsule by ity of hr capsule 00:00: mouth [place] 00 daily. [facility] traZODone 2021-0 Yes [id number] 50mg Take 1 [facility] n[facility] 50 mg 3-30 tablet by [facility] of tablet 00:00: mouth at [place] [address] bedtime. [facility] tamsulosin 0 Yes [id number] .4mg Take 1 [facility] 0.4 mg 24 3-30 9102 capsule by ity of hr capsule 00:00: mouth [place] 00 daily. [facility] traZODone 0 Yes [id number] 50mg Take 1 [facility] n[facility] 50 mg 3-30 tablet by [facility] of tablet 00:00: mouth at [place] 00 bedtime. [facility] tamsulosin 0 Yes [id number] .4mg Take 1 [facility] 0.4 mg 24 3-30 9102 capsule by ity of hr capsule 00:00: mouth [place] 00 daily. [facility] traZODone 0 Yes [id number] 50mg Take 1 [facility] nivers 50 mg 3-30 tablet by [facility]y of tablet 00:00: mouth at [place] [address] bedtime. [facility] tamsulosin 2022- No [id number] .4mg Take 1 [facility] 0.4 mg 24 3-30 -05 9102 capsule by ity of hr capsule 00:00: 00:00 mouth [place] 00 :00 daily. [facility] traZODone 2022- No [id number] 50mg Take 1 [facility] 50 mg 3-30 -05 tablet by [facility] of tablet 00:00: 00:00 mouth at [place] 00 :00 bedtime. [facility] tamsulosin 2022- No [id number] .4mg Take 1 [facility] 0.4 mg 24 3-30 -05 9102 capsule by ity of hr capsule 00:00: 00:00 mouth [place] 00 :00 daily. [facility] traZODone 2022- No [id number] 50mg Take 1 [facility] 50 mg 3-30 -05 tablet by [facility] of tablet 00:00: 00:00 mouth at [place] 00 :00 bedtime. [facility] tamsulosin 2022- No [id number] .4mg Take 1 [facility] 0.4 mg 24 3-30 -05 9102 capsule by ity of hr capsule 00:00: 00:00 mouth [place] 00 :00 daily. [facility] traZODone 2022- No [id number] 50mg Take 1 [facility] 50 mg 3-30 -05 tablet by [facility] of tablet 00:00: 00:00 mouth at [place] 00 :00 bedtime. [facility] tamsulosin 2022- No [id number] .4mg Take 1 [facility] 0.4 mg 24 3-30 -05 9102 capsule by ity of hr capsule 00:00: 00:00 mouth [place] 00 :00 daily. [facility] traZODone 2022- No [id number] 50mg Take 1 [facility] 50 mg 3-30 -05 tablet by [facility] of tablet 00:00: 00:00 mouth at [place] 00 :00 bedtime. [facility] ergocalcife 2021- No [id number] Take 1 [facility] rol, 3-30 12-12 capsule by [facility] of vitamin d2, 00:00: 00:00 mouth [place] 1,250 mcg 00 :00 weekly. [facility] (50,000 Branch unit) capsule pravastatin 2021- No [id number] 40mg Take 1 [facility] 40 mg 3-30 11-11 tablet by [facility] of tablet 00:00: 00:00 mouth at [place] 00 :00 bedtime. [facility] triamcinolo Yes [id number] 1{spray Use 1 [facility] ne 55 mcg 3-15 } [place] in [facility] of nasal 00:00: each [place] inhaler 00 nostril 2 Medical (two) Branch times daily. ipratropium Yes [id number] 1{spray Use 1 [facility] 42 mcg 3-15 1 } [place] in [facility]y of (0.06 %) 00:00: each [place] nasal spray 00 nostril 2 Med ical (two) Branch times daily. triamcinolo Yes [id number] 1{spray Use 1 [facility] ne 55 mcg 3-15 } [place] in [facility] of nasal 00:00: each [place] inhaler 00 nostril 2 Medical (two) Branch times daily. ipratropium Yes [id number] 1{spray Use 1 [facility] 42 mcg 3-15 1 } [place] in [facility]y of (0.06 %) 00:00: each [place] nasal spray 00 nostril 2 Med ical (two) Branch times daily. triamcinolo 2021-0 Yes [id number] 1{spray Use 1 [facility] ne 55 mcg 3-15 } [place] in [facility] of nasal 00:00: each [place] inhaler 00 nostril 2 Medical (two) Branch times daily. ipratropium 2021-0 Yes [id number] 1{spray Use 1 [facility] 42 mcg 3-15 1 } [place] in [facility]y of (0.06 %) 00:00: each [place] nasal spray 00 nostril 2 Med ical (two) Branch times daily. triamcinolo 2021-0 Yes [id number] 1{spray Use 1 [facility] ne 55 mcg 3-15 } [place] in [facility] of nasal 00:00: each [place] inhaler 00 nostril 2 Medical (two) Branch times daily. ipratropium 2021-0 Yes [id number] 1{spray Use 1 [facility] 42 mcg 3-15 1 } [place] in [facility] of (0.06 %) 00:00: each [place] nasal spray 00 nostril 2 Med ical (two) Branch times daily. triamcinolo 2021-0 Yes [id number] 1{spray Use 1 [facility] ne 55 mcg 3-15 } [place] in [facility] of nasal 00:00: each [place] inhaler 00 nostril 2 Medical (two) Branch times daily. ipratropium 2021-0 Yes [id number] 1{spray Use 1 [facility] 42 mcg 3-15 1 } [place] in [facility] of (0.06 %) 00:00: each [place] nasal spray 00 nostril 2 Med ical (two) Branch times daily. triamcinolo 2021-0 Yes [id number] 1{spray Use 1 [facility] ne 55 mcg 3-15 } [place] in [facility] of nasal 00:00: each [place] inhaler 00 nostril 2 Medical (two) Branch times daily. ipratropium 2021-0 Yes [id number] 1{spray Use 1 [facility] 42 mcg 3-15 1 } [place] in [facility]y of (0.06 %) 00:00: each [place] nasal spray 00 nostril 2 Med ical (two) Branch times daily. triamcinolo 2021-0 Yes [id number] 1{spray Use 1 [facility] ne 55 mcg 3-15 } [place] in [facility] of nasal 00:00: each [place] inhaler 00 nostril 2 Medical (two) Branch times daily. ipratropium 2-0 Yes [id number] 1{spray Use 1 [facility] 42 mcg 3-15 1 } [place] in [facility] of (0.06 %) 00:00: each [place] nasal spray 00 nostril 2 Med ical (two) Branch times daily. triamcinolo 2021-0 Yes [id number] 1{spray Use 1 [facility] ne 55 mcg 3-15 } [place] in [facility] of nasal 00:00: each [place] inhaler 00 nostril 2 Medical (two) Branch times daily. ipratropium 2021-0 Yes [id number] 1{spray Use 1 [facility] 42 mcg 3-15 1 } [place] in [facility]y of (0.06 %) 00:00: each [place] nasal spray 00 nostril 2 Med ical (two) Branch times daily. triamcinolo 2021-0 Yes [id number] 1{spray Use 1 [facility] ne 55 mcg 3-15 } [place] in [facility] of nasal 00:00: each [place] inhaler 00 nostril 2 Medical (two) Branch times daily. ipratropium 2021-0 Yes [id number] 1{spray Use 1 [facility] 42 mcg 3-15 1 } [place] in [facility]y of (0.06 %) 00:00: each [place] nasal spray 00 nostril 2 Med ical (two) Branch times daily. triamcinolo 2021-0 Yes [id number] 1{spray Use 1 [facility] ne 55 mcg 3-15 } [place] in [facility] of nasal 00:00: each [place] inhaler 00 nostril 2 Medical (two) Branch times daily. ipratropium 2021-0 Yes [id number] 1{spray Use 1 [facility] 42 mcg 3-15 1 } [place] in [facility]y of (0.06 %) 00:00: each [place] nasal spray 00 nostril 2 Med ical (two) Branch times daily. triamcinolo 2021-0 Yes [id number] 1{spray Use 1 [facility] ne 55 mcg 3-15 } [place] in [facility] of nasal 00:00: each [place] inhaler 00 nostril 2 Medical (two) Branch times daily. ipratropium 2021-0 Yes [id number] 1{spray Use 1 [facility] 42 mcg 3-15 1 } [place] in [facility]y of (0.06 %) 00:00: each [place] nasal spray 00 nostril 2 Med ical (two) Branch times daily. triamcinolo 2021-0 Yes [id number] 1{spray Use 1 [facility] ne 55 mcg 3-15 } [place] in [facility] of nasal 00:00: each [place] inhaler 00 nostril 2 Medical (two) Branch times daily. ipratropium 2021-0 Yes [id number] 1{spray Use 1 [facility] 42 mcg 3-15 1 } [place] in [facility] of (0.06 %) 00:00: each [place] nasal spray 00 nostril 2 Med ical (two) Branch times daily. triamcinolo 2021-0 Yes [id number] 1{spray Use 1 [facility] ne 55 mcg 3-15 } [place] in [facility] of nasal 00:00: each [place] inhaler 00 nostril 2 Medical (two) Branch times daily. ipratropium 2021-0 Yes [id number] 1{spray Use 1 [facility] 42 mcg 3-15 1 } [place] in [facility] of (0.06 %) 00:00: each [place] nasal spray 00 nostril 2 Med ical (two) Branch times daily. triamcinolo 2021-0 Yes [id number] 1{spray Use 1 [facility] ne 55 mcg 3-15 } [place] in [facility] of nasal 00:00: each [place] inhaler 00 nostril 2 Medical (two) Branch times daily. ipratropium 2021-0 Yes [id number] 1{spray Use 1 [facility] 42 mcg 3-15 1 } [place] in [facility] of (0.06 %) 00:00: each [place] nasal spray 00 nostril 2 Med ical (two) Branch times daily. triamcinolo 2021-0 Yes [id number] 1{spray Use 1 [facility] ne 55 mcg 3-15 } [place] in [facility] of nasal 00:00: each [place] inhaler 00 nostril 2 Medical (two) Branch times daily. ipratropium 2-0 Yes [id number] 1{spray Use 1 [facility] 42 mcg 3-15 1 } [place] in [facility]y of (0.06 %) 00:00: each [place] nasal spray 00 nostril 2 Med ical (two) Branch times daily. triamcinolo 2021-0 Yes [id number] 1{spray Use 1 [facility] ne 55 mcg 3-15 } [place] in [facility] of nasal 00:00: each [place] inhaler 00 nostril 2 Medical (two) Branch times daily. ipratropium 2-0 Yes [id number] 1{spray Use 1 [facility] 42 mcg 3-15 1 } [place] in ity of (0.06 %) 00:00: each [place] nasal spray 00 nostril 2 [facility] (two) Branch times daily. triamcinolo 2021-0 Yes [id number] 1{spray Use 1 [facility] mcg 3-15 } [facility] 00:00: each [place] inhaler 00 nostril 2 [facility] (two) Branch times daily. ipratropium 2-0 Yes [id number] 1{spray Use 1 [facility] 42 mcg 3-15 1 } [facility] (0.06 %) 00:00: each [place] nasal spray 00 nostril 2 [facility] (two) Branch times daily. triamcinolo 2021-0 Yes [id number] 1{spray Use 1 [facility] 55 mcg 3-15 } [place] [facility] 00:00: each [place] inhaler 00 nostril 2 [facility] (two) Branch times daily. ipratropium 2021-0 Yes [id number] 1{spray Use 1 [facility] 42 mcg 3-15 1 } [facility] (0.06 %) 00:00: each [place] nasal spray 00 nostril 2 [facility] (two) Branch times daily. triamcinolo 2021-0 Yes [id number] 1{spray Use 1 [facility] 55 mcg 3-15 } [place] 00:00: each [place] inhaler 00 nostril 2 [facility] (two) Branch times daily. ipratropium 2-0 Yes [id number] 1{spray Use 1 [facility] 42 mcg 3-15 1 } [place] (0.06 %) 00:00: each [place] nasal spray 00 nostril 2 [facility] (two) Branch times daily. triamcinolo 2021-0 Yes [id number] 1{spray Use 1 [facility] 55 mcg 3-15 } [place] [facility] 00:00: each [place] inhaler 00 nostril 2 [facility] (two) Branch times daily. ipratropium 2-0 Yes [id number] 1{spray Use 1 [facility] 42 mcg 3-15 1 } [place] (0.06 %) 00:00: each [place] nasal spray 00 nostril 2 [facility] (two) Branch times daily. triamcinolo 2021-0 Yes [id number] 1{spray Use 1 [facility] 55 mcg 3-15 } [place] [facility] 00:00: each [place] inhaler 00 nostril 2 [facility] (two) Branch times daily. ipratropium 2021-0 Yes [id number] 1{spray Use 1 [facility] 42 mcg 3-15 1 } [place] (0.06 %) 00:00: each [place] nasal spray 00 nostril 2 [facility] (two) Branch times daily. triamcinolo 2021-0 Yes [id number] 1{spray Use 1 [facility] 55 mcg 3-15 } [place] [facility] 00:00: each [place] inhaler 00 nostril 2 [facility] (two) Branch times daily. ipratropium 2021-0 Yes [id number] 1{spray Use 1 [facility] 42 mcg 3-15 1 } [place] [facility] (0.06 %) 00:00: each [place] nasal spray 00 nostril 2 [facility] (two) Branch times daily. triamcinolo 2021-0 Yes [id number] 1{spray Use 1 [facility] 55 mcg 3-15 } [place] [facility] 00:00: each [place] inhaler 00 nostril 2 [facility] (two) Branch times daily. ipratropium 2021-0 Yes [id number] 1{spray Use 1 [facility] 42 mcg 3-15 1 } [place] [facility] (0.06 %) 00:00: each [place] nasal spray 00 nostril 2 [facility] (two) Branch times daily. triamcinolo 2021-0 Yes [id number] 1{spray Use 1 [facility] 55 mcg 3-15 } [place] [facility] 00:00: each [place] inhaler 00 nostril 2 [facility] (two) Branch times daily. ipratropium 2021-0 Yes [id number] 1{spray Use 1 [facility] 42 mcg 3-15 1 } [place] (0.06 %) 00:00: each [place] nasal spray 00 nostril 2 [facility] (two) Branch times daily. triamcinolo 2021-0 Yes [id number] 1{spray Use 1 [facility] 55 mcg 3-15 } [place] [facility] 00:00: each [place] inhaler 00 nostril 2 [facility] (two) Branch times daily. ipratropium 2021-0 Yes [id number] 1{spray Use 1 [facility] 42 mcg 3-15 1 } [place] (0.06 %) 00:00: each [place] nasal spray 00 nostril 2 [facility] (two) Branch times daily. triamcinolo 2021-0 Yes [id number] 1{spray Use 1 [facility] 55 mcg 3-15 } [place] [facility] 00:00: each [place] inhaler 00 nostril 2 [facility] (two) Branch times daily. ipratropium 2021-0 Yes [id number] 1{spray Use 1 [facility] 42 mcg 3-15 1 } [place] [facility] (0.06 %) 00:00: each [place] nasal spray 00 nostril 2 [facility] ical (two) Branch times daily. triamcinolo 2021-0 Yes [id number] 1{spray Use 1 [facility] 55 mcg 3-15 } [place] [facility] 00:00: each [place] inhaler 00 nostril 2 [facility] (two) Branch times daily. ipratropium 2021-0 Yes [id number] 1{spray Use 1 [facility] 42 mcg 3-15 1 } [place] [facility] (0.06 %) 00:00: each [place] nasal spray 00 nostril 2 [facility] (two) Branch times daily. triamcinolo 2021-0 Yes [id number] 1{spray Use 1 [facility] 55 mcg 3-15 } [place] [facility] 00:00: each [place] inhaler 00 nostril 2 [facility] (two) Branch times daily. ipratropium 2021-0 Yes [id number] 1{spray Use 1 [facility] 42 mcg 3-15 1 } [place] [facility] (0.06 %) 00:00: each [place] nasal spray 00 nostril 2 [facility] (two) Branch times daily. triamcinolo 2021-0 Yes [id number] 1{spray Use 1 [facility] 55 mcg 3-15 } [place] [facility] 00:00: each [place] inhaler 00 nostril 2 [facility] (two) Branch times daily. ipratropium 2021-0 Yes [id number] 1{spray Use 1 [facility] 42 mcg 3-15 1 } [place] [facility] (0.06 %) 00:00: each [place] nasal spray 00 nostril 2 [facility] (two) Branch times daily. triamcinolo 2021-0 Yes [id number] 1{spray Use 1 [facility] 55 mcg 3-15 } [place] [facility] 00:00: each [place] inhaler 00 nostril 2 [facility] (two) Branch times daily. ipratropium 2021-0 Yes [id number] 1{spray Use 1 [facility] 42 mcg 3-15 1 } [place] [facility] (0.06 %) 00:00: each [place] nasal spray 00 nostril 2 [facility] (two) Branch times daily. triamcinolo 2021-0 Yes [id number] 1{spray Use 1 [facility] 55 mcg 3-15 } [place] [facility] 00:00: each [place] inhaler 00 nostril 2 [facility] (two) Branch times daily. ipratropium 2021-0 Yes [id number] 1{spray Use 1 [facility] 42 mcg 3-15 1 } [place] [facility] (0.06 %) 00:00: each [place] nasal spray 00 nostril 2 [facility] (two) Branch times daily. triamcinolo 2021-0 Yes [id number] 1{spray Use 1 [facility] 55 mcg 3-15 } [place] [facility] 00:00: each [place] inhaler 00 nostril 2 [facility] (two) Branch times daily. ipratropium 2021-0 Yes [id number] 1{spray Use 1 [facility] 42 mcg 3-15 1 } [place] [facility] (0.06 %) 00:00: each [place] nasal spray 00 nostril 2 [facility] (two) Branch times daily. triamcinolo 2021-0 Yes [id number] 1{spray Use 1 [facility] 55 mcg 3-15 } [place] [facility] 00:00: each [place] inhaler 00 nostril 2 [facility] (two) Branch times daily. ipratropium 2021-0 Yes [id number] 1{spray Use 1 [facility] 42 mcg 3-15 1 } [place] [facility] (0.06 %) 00:00: each [place] nasal spray 00 nostril 2 [facility] (two) Branch times daily. triamcinolo 2021-0 Yes [id number] 1{spray Use 1 [facility] 55 mcg 3-15 } [place] [facility] 00:00: each [place] inhaler 00 nostril 2 [facility] (two) Branch times daily. ipratropium 2021-0 Yes [id number] 1{spray Use 1 [facility] 42 mcg 3-15 1 } [place] [facility] (0.06 %) 00:00: each [place] nasal spray 00 nostril 2 [facility] (two) Branch times daily. triamcinolo 2021-0 Yes [id number] 1{spray Use 1 [facility] 55 mcg 3-15 } [place] [facility] 00:00: each [place] inhaler 00 nostril 2 [facility] (two) Branch times daily. ipratropium 2021-0 Yes [id number] 1{spray Use 1 [facility] 42 mcg 3-15 1 } [place] [facility] (0.06 %) 00:00: each [place] nasal spray 00 nostril 2 [facility] (two) Branch times daily. triamcinolo 2021-0 Yes [id number] 1{spray Use 1 [facility] 55 mcg 3-15 } [place] [facility] 00:00: each [place] inhaler 00 nostril 2 [facility] (two) Branch times daily. ipratropium 2021-0 Yes [id number] 1{spray Use 1 [facility] 42 mcg 3-15 1 } [place] [facility] (0.06 %) 00:00: each [place] nasal spray 00 nostril 2 [facility] (two) Branch times daily. triamcinolo 2021-0 Yes [id number] 1{spray Use 1 [facility] 55 mcg 3-15 } [place] [facility] 00:00: each [place] inhaler 00 nostril 2 [facility] (two) Branch times daily. ipratropium 2021-0 Yes [id number] 1{spray Use 1 [facility] 42 mcg 3-15 1 } [place] [facility] (0.06 %) 00:00: each [place] nasal spray 00 nostril 2 [facility] (two) Branch times daily. triamcinolo 2021-0 Yes [id number] 1{spray Use 1 [facility] 55 mcg 3-15 } [place] [facility] 00:00: each [place] inhaler 00 nostril 2 [facility] (two) Branch times daily. ipratropium 2021-0 Yes [id number] 1{spray Use 1 [facility] 42 mcg 3-15 1 } [place] [facility] (0.06 %) 00:00: each [place] nasal spray 00 nostril 2 [facility] (two) Branch times daily. triamcinolo 2021-0 Yes [id number] 1{spray Use 1 [facility] 55 mcg 3-15 } [place] [facility] 00:00: each [place] inhaler 00 nostril 2 [facility] (two) Branch times daily. ipratropium 2021-0 Yes [id number] 1{spray Use 1 [facility] 42 mcg 3-15 1 } [place] [facility] (0.06 %) 00:00: each [place] nasal spray 00 nostril 2 [facility] (two) Branch times daily. triamcinolo 2021-0 Yes [id number] 1{spray Use 1 [facility] 55 mcg 3-15 } [place] [facility] 00:00: each [place] inhaler 00 nostril 2 [facility] (two) Branch times daily. ipratropium 2021-0 Yes [id number] 1{spray Use 1 [facility] 42 mcg 3-15 1 } [place] (0.06 %) 00:00: each [place] nasal spray 00 nostril 2 [facility] (two) Branch times daily. triamcinolo 2021-0 Yes [id number] 1{spray Use 1 [facility] 55 mcg 3-15 } [place] [facility] 00:00: each [place] inhaler 00 nostril 2 [facility] (two) Branch times daily. ipratropium 2021-0 Yes [id number] 1{spray Use 1 [facility] 42 mcg 3-15 1 } [place] (0.06 %) 00:00: each [place] nasal spray 00 nostril 2 [facility] (two) Branch times daily. triamcinolo 2021-0 Yes [id number] 1{spray Use 1 [facility] 55 mcg 3-15 } [place] [facility] 00:00: each [place] inhaler 00 nostril 2 [facility] (two) Branch times daily. ipratropium 2-0 Yes [id number] 1{spray Use 1 [facility] 42 mcg 3-15 1 } [place] [facility] (0.06 %) 00:00: each [place] nasal spray 00 nostril 2 [facility] (two) Branch times daily. triamcinolo 2021-0 Yes [id number] 1{spray Use 1 [facility] 55 mcg 3-15 } [place] [facility] 00:00: each [place] inhaler 00 nostril 2 [facility] (two) Branch times daily. ipratropium 2021-0 Yes [id number] 1{spray Use 1 [facility] 42 mcg 3-15 1 } [place] (0.06 %) 00:00: each [place] nasal spray 00 nostril 2 [facility] (two) Branch times daily. triamcinolo 2021-0 Yes [id number] 1{spray Use 1 [facility] 55 mcg 3-15 } [place] [facility] 00:00: each [place] inhaler 00 nostril 2 [facility] (two) Branch times daily. ipratropium 2021-0 Yes [id number] 1{spray Use 1 [facility] 42 mcg 3-15 1 } [place] (0.06 %) 00:00: each [place] nasal spray 00 nostril 2 [facility] ical (two) Branch times daily. triamcinolo 2021-0 Yes [id number] 1{spray Use 1 [facility] 55 mcg 3-15 } [place] [facility] 00:00: each [place] inhaler 00 nostril 2 [facility] (two) Branch times daily. ipratropium 2021-0 Yes [id number] 1{spray Use 1 [facility] 42 mcg 3-15 1 } [place] (0.06 %) 00:00: each [place] nasal spray 00 nostril 2 [facility] ical (two) Branch times daily. triamcinolo 2021-0 Yes [id number] 1{spray Use 1 [facility] 55 mcg 3-15 } [place] [facility] 00:00: each [place] inhaler 00 nostril 2 [facility] (two) Branch times daily. ipratropium 2021-0 Yes [id number] 1{spray Use 1 [facility] 42 mcg 3-15 1 } [place] (0.06 %) 00:00: each [place] nasal spray 00 nostril 2 [facility] ical (two) Branch times daily. triamcinolo 2021-0 Yes [id number] 1{spray Use 1 [facility] 55 mcg 3-15 } [place] [facility] nasal 00:00: each [place] inhaler 00 nostril 2 [facility] (two) Branch times daily. ipratropium 2021-0 Yes [id number] 1{spray Use 1 [facility] 42 mcg 3-15 1 } [place] [facility] (0.06 %) 00:00: each [place] nasal spray 00 nostril 2 [facility] ical (two) Branch times daily. triamcinolo 2021-0 Yes [id number] 1{spray Use 1 [facility] 55 mcg 3-15 } [place] [facility] nasal 00:00: each [place] inhaler 00 nostril 2 [facility] (two) Branch times daily. ipratropium 2021-0 Yes [id number] 1{spray Use 1 [facility] 42 mcg 3-15 1 } [place] (0.06 %) 00:00: each [place] nasal spray 00 nostril 2 [facility] (two) Branch times daily. triamcinolo 2021-0 Yes [id number] 1{spray Use 1 [facility] 55 mcg 3-15 } [place] [facility] 00:00: each [place] inhaler 00 nostril 2 [facility] (two) Branch times daily. ipratropium 2021-0 Yes [id number] 1{spray Use 1 [facility] 42 mcg 3-15 1 } [place] (0.06 %) 00:00: each [place] nasal spray 00 nostril 2 [facility] ical (two) Branch times daily. triamcinolo 2021-0 Yes [id number] 1{spray Use 1 [facility] 55 mcg 3-15 } [place] [facility] 00:00: each [place] inhaler 00 nostril 2 [facility] (two) Branch times daily. ipratropium 2021-0 Yes [id number] 1{spray Use 1 [facility] 42 mcg 3-15 1 } [place] [facility] (0.06 %) 00:00: each [place] nasal spray 00 nostril 2 [facility] ical (two) Branch times daily. triamcinolo 2021-0 Yes [id number] 1{spray Use 1 [facility] 55 mcg 3-15 } [place] [facility] 00:00: each [place] inhaler 00 nostril 2 [facility] (two) Branch times daily. ipratropium 2021-0 Yes [id number] 1{spray Use 1 [facility] 42 mcg 3-15 1 } [place] (0.06 %) 00:00: each [place] nasal spray 00 nostril 2 [facility] ical (two) Branch times daily. triamcinolo 2021-0 Yes [id number] 1{spray Use 1 [facility] 55 mcg 3-15 } [place] [facility] nasal 00:00: each [place] inhaler 00 nostril 2 [facility] (two) Branch times daily. ipratropium 2021-0 Yes [id number] 1{spray Use 1 [facility] 42 mcg 3-15 1 } [place] [facility] (0.06 %) 00:00: each [place] nasal spray 00 nostril 2 [facility] ical (two) Branch times daily. triamcinolo 2021-0 Yes [id number] 1{spray Use 1 [facility] 55 mcg 3-15 } [place] [facility] nasal 00:00: each [place] inhaler 00 nostril 2 [facility] (two) Branch times daily. ipratropium 2021-0 Yes [id number] 1{spray Use 1 [facility] 42 mcg 3-15 1 } [facility] (0.06 %) 00:00: each [place] nasal spray 00 nostril 2 [facility] ical (two) Branch times daily. triamcinolo 2021-0 Yes [id number] 1{spray Use 1 [facility] 55 mcg 3-15 } [place] [facility] 00:00: each [place] inhaler 00 nostril 2 [facility] (two) Branch times daily. ipratropium 2021-0 Yes [id number] 1{spray Use 1 [facility] 42 mcg 3-15 1 } [facility] (0.06 %) 00:00: each [place] nasal spray 00 nostril 2 [facility] ical (two) Branch times daily. triamcinolo 2021-0 Yes [id number] 1{spray Use 1 [facility] 55 mcg 3-15 } [place] [facility] 00:00: each [place] inhaler 00 nostril 2 [facility] (two) Branch times daily. ipratropium 2021-0 Yes [id number] 1{spray Use 1 [facility] 42 mcg 3-15 1 } [facility] (0.06 %) 00:00: each [place] nasal spray 00 nostril 2 [facility] ical (two) Branch times daily. triamcinolo 2021-0 Yes [id number] 1{spray Use 1 [facility] 55 mcg 3-15 } [place] [facility] nasal 00:00: each [place] inhaler 00 nostril 2 [facility] (two) Branch times daily. ipratropium 2022-0 Yes [id number] 1{spray Use 1 [facility] 42 mcg 3-15 1 } [place] (0.06 %) 00:00: each [place] nasal spray 00 nostril 2 Med ical (two) Branch times daily. triamcinolo 2021-0 Yes [id number] 1{spray Use 1 [facility] 55 mcg 3-15 } [place] [facility] nasal 00:00: each [place] inhaler 00 nostril 2 [facility] (two) Branch times daily. ipratropium 2021-0 Yes [id number] 1{spray Use 1 [facility] 42 mcg 3-15 1 } [place] (0.06 %) 00:00: each [place] nasal spray 00 nostril 2 [facility] ical (two) Branch times daily. triamcinolo 2021-0 Yes [id number] 1{spray Use 1 [facility] 55 mcg 3-15 } [place] [facility] nasal 00:00: each [place] inhaler 00 nostril 2 [facility] (two) Branch times daily. ipratropium 2021-0 Yes [id number] 1{spray Use 1 [facility] 42 mcg 3-15 1 } [place] [facility] (0.06 %) 00:00: each [place] nasal spray 00 nostril 2 [facility] ical (two) Branch times daily. triamcinolo 2021-0 Yes [id number] 1{spray Use 1 [facility] 55 mcg 3-15 } [place] [facility] nasal 00:00: each [place] inhaler 00 nostril 2 Medical (two) Branch times daily. ipratropium 2021-0 Yes [id number] 1{spray Use 1 [facility] 42 mcg 3-15 1 } [place] [facility] (0.06 %) 00:00: each [place] nasal spray 00 nostril 2 Med ical (two) Branch times daily. triamcinolo 2021-0 Yes [id number] 1{spray Use 1 [facility] 55 mcg 3-15 } [place] [facility] nasal 00:00: each [place] inhaler 00 nostril 2 Medical (two) Branch times daily. ipratropium 2021-0 Yes [id number] 1{spray Use 1 [facility] 42 mcg 3-15 1 } [place] [facility] (0.06 %) 00:00: each [place] nasal spray 00 nostril 2 Med ical (two) Branch times daily. triamcinolo 2021-0 Yes [id number] 1{spray Use 1 [facility] 55 mcg 3-15 } [place] [facility] nasal 00:00: each [place] inhaler 00 nostril 2 Medical (two) Branch times daily. ipratropium 2021-0 Yes [id number] 1{spray Use 1 [facility] 42 mcg 3-15 1 } [place] [facility] (0.06 %) 00:00: each [place] nasal spray 00 nostril 2 Med ical (two) Branch times daily. triamcinolo 2021-0 Yes [id number] 1{spray Use 1 [facility] 55 mcg 3-15 } [place] [facility] 00:00: each [place] inhaler 00 nostril 2 Medical (two) Branch times daily. ipratropium 2021-0 Yes [id number] 1{spray Use 1 [facility] 42 mcg 3-15 1 } [place] [facility] (0.06 %) 00:00: each [place] nasal spray 00 nostril 2 Med ical (two) Branch times daily. triamcinolo 2021-0 Yes [id number] 1{spray Use 1 [facility] 55 mcg 3-15 } [place] [facility] nasal 00:00: each [place] inhaler 00 nostril 2 [facility] (two) Branch times daily. ipratropium 2021-0 Yes [id number] 1{spray Use 1 [facility] 42 mcg 3-15 1 } [place] (0.06 %) 00:00: each [place] nasal spray 00 nostril 2 Med ical (two) Branch times daily. triamcinolo 2021-0 Yes [id number] 1{spray Use 1 [facility] 55 mcg 3-15 } [place] [facility] 00:00: each [place] inhaler 00 nostril 2 [facility] (two) Branch times daily. ipratropium 2021-0 Yes [id number] 1{spray Use 1 [facility] 42 mcg 3-15 1 } [place] (0.06 %) 00:00: each [place] nasal spray 00 nostril 2 Med ical (two) Branch times daily. triamcinolo 2021-0 Yes [id number] 1{spray Use 1 [facility] 55 mcg 3-15 } [place] [facility] 00:00: each [place] inhaler 00 nostril 2 [facility] (two) Branch times daily. ipratropium 2-0 Yes [id number] 1{spray Use 1 [facility] 42 mcg 3-15 1 } [place] [facility] (0.06 %) 00:00: each [place] nasal spray 00 nostril 2 Med ical (two) Branch times daily. triamcinolo 2021-0 Yes [id number] 1{spray Use 1 [facility] 55 mcg 3-15 } [place] [facility] nasal 00:00: each [place] inhaler 00 nostril 2 Medical (two) Branch times daily. ipratropium 2021-0 Yes [id number] 1{spray Use 1 [facility] 42 mcg 3-15 1 } [place] (0.06 %) 00:00: each [place] nasal spray 00 nostril 2 Med ical (two) Branch times daily. triamcinolo 2021-0 Yes [id number] 1{spray Use 1 [facility] 55 mcg 3-15 } [place] [facility] nasal 00:00: each [place] inhaler 00 nostril 2 [facility] (two) Branch times daily. ipratropium 2021-0 Yes [id number] 1{spray Use 1 [facility] 42 mcg 3-15 1 } [place] [facility] (0.06 %) 00:00: each [place] nasal spray 00 nostril 2 [facility] ical (two) Branch times daily. triamcinolo 2021-0 Yes [id number] 1{spray Use 1 [facility] 55 mcg 3-15 } [place] [facility] nasal 00:00: each [place] inhaler 00 nostril 2 Medical (two) Branch times daily. ipratropium 2-0 Yes [id number] 1{spray Use 1 [facility] 42 mcg 3-15 1 } [place] [facility] (0.06 %) 00:00: each [place] nasal spray 00 nostril 2 [facility] ical (two) Branch times daily. triamcinolo 2021-0 Yes [id number] 1{spray Use 1 [facility] 55 mcg 3-15 } [place] [facility] nasal 00:00: each [place] inhaler 00 nostril 2 Medical (two) Branch times daily. ipratropium 2-0 Yes [id number] 1{spray Use 1 [facility] 42 mcg 3-15 1 } [place] [facility] (0.06 %) 00:00: each [place] nasal spray 00 nostril 2 Med ical (two) Branch times daily. triamcinolo 2021-0 Yes [id number] 1{spray Use 1 [facility] 55 mcg 3-15 } [place] [facility] nasal 00:00: each [place] inhaler 00 nostril 2 Medical (two) Branch times daily. ipratropium 2021-0 Yes [id number] 1{spray Use 1 [facility] 42 mcg 3-15 1 } [place] (0.06 %) 00:00: each [place] nasal spray 00 nostril 2 Med ical (two) Branch times daily. triamcinolo 2021-0 Yes [id number] 1{spray Use 1 [facility] 55 mcg 3-15 } [place] [facility] nasal 00:00: each [place] inhaler 00 nostril 2 Medical (two) Branch times daily. ipratropium 2021-0 Yes [id number] 1{spray Use 1 [facility] 42 mcg 3-15 1 } [place] (0.06 %) 00:00: each [place] nasal spray 00 nostril 2 Med ical (two) Branch times daily. triamcinolo 2021-0 Yes [id number] 1{spray Use 1 [facility] 55 mcg 3-15 } [place] nasal 00:00: each [place] inhaler 00 nostril 2 [facility] (two) Branch times daily. ipratropium 2021-0 Yes [id number] 1{spray Use 1 [facility] 42 mcg 3-15 1 } [place] (0.06 %) 00:00: each [place] nasal spray 00 nostril 2 Med ical (two) Branch times daily. triamcinolo 2021-0 Yes [id number] 1{spray Use 1 [facility] 55 mcg 3-15 } [place] nasal 00:00: each [place] inhaler 00 nostril 2 [facility] (two) Branch times daily. ipratropium 2-0 Yes [id number] 1{spray Use 1 [facility] 42 mcg 3-15 1 } [facility] (0.06 %) 00:00: each [place] nasal spray 00 nostril 2 Med ical (two) Branch times daily. triamcinolo 2021-0 Yes [id number] 1{spray Use 1 [facility] 55 mcg 3-15 } [place] [facility] nasal 00:00: each [place] inhaler 00 nostril 2 [facility] (two) Branch times daily. ipratropium 2-0 Yes [id number] 1{spray Use 1 [facility] 42 mcg 3-15 1 } [place] (0.06 %) 00:00: each [place] nasal spray 00 nostril 2 Med ical (two) Branch times daily. triamcinolo 2021-0 Yes [id number] 1{spray Use 1 [facility] 55 mcg 3-15 } [place] [facility] nasal 00:00: each [place] inhaler 00 nostril 2 [facility] (two) Branch times daily. ipratropium 2021-0 Yes [id number] 1{spray Use 1 [facility] 42 mcg 3-15 1 } [place] of (0.06 %) 00:00: each [place] nasal spray 00 nostril 2 Med ical (two) Branch times daily. triamcinolo 2021-0 Yes [id number] 1{spray Use 1 [facility] 55 mcg 3-15 } [place] [facility] nasal 00:00: each [place] inhaler 00 nostril 2 Medical (two) Branch times daily. ipratropium 2021-0 Yes [id number] 1{spray Use 1 [facility] 42 mcg 3-15 1 } [place] (0.06 %) 00:00: each [place] nasal spray 00 nostril 2 Med ical (two) Branch times daily. triamcinolo 2021-0 Yes [id number] 1{spray Use 1 [facility] 55 mcg 3-15 } [place] [facility] nasal 00:00: each [place] inhaler 00 nostril 2 Medical (two) Branch times daily. ipratropium 2-0 Yes [id number] 1{spray Use 1 [facility] 42 mcg 3-15 1 } [place] (0.06 %) 00:00: each [place] nasal spray 00 nostril 2 Med ical (two) Branch times daily. triamcinolo 2021-0 Yes [id number] 1{spray Use 1 [facility] 55 mcg 3-15 } [place] [facility] nasal 00:00: each [place] inhaler 00 nostril 2 Medical (two) Branch times daily. ipratropium 2-0 Yes [id number] 1{spray Use 1 [facility] 42 mcg 3-15 1 } [place] (0.06 %) 00:00: each [place] nasal spray 00 nostril 2 Med ical (two) Branch times daily. triamcinolo Yes [id number] 1{spray Use 1 [facility] 55 mcg 3-15 } [facility] nasal 00:00: each [place] inhaler 00 nostril 2 Medical (two) Branch times daily. triamcinolo 2022- No [id number] 1{spray Use 1 [facility] 55 mcg 3-15 07-18 } [facility] f nasal 00:00: 00:00 each [place] inhaler 00 :00 nostril 2 Medical (two) Branch times daily. triamcinolo 2022- No [id number] 1{spray Use 1 [facility] 55 mcg 3-15 07-18 } [facility] f nasal 00:00: 00:00 each [place] inhaler 00 :00 nostril 2 Medical (two) Branch times daily. ipratropium 2022- No [id number] 1{spray Use 1 [facility] 42 mcg 3-15 07-11 1 } [place] (0.06 %) 00:00: 00:00 each [place] nasal spray 00 :00 nostril 2 Med ical (two) Branch times daily. ipratropium 2022- No [id number] 1{spray Use 1 [facility] 42 mcg 3-15 07-11 1 } [place] (0.06 %) 00:00: 00:00 each [place] nasal spray 00 :00 nostril 2 Med ical (two) Branch times daily. albuterol Yes [id number] 2.5mg Inhale 3 [facility] 2.5 mg /3 3-10 mL every 2 ity of mL (0.083 00:00: (two) [place] %) 00 hours as Medical nebulizer needed for Bran ch solution Shortness of Breath or Wheezing. budesonide Yes [id number] .5mg Inhale 2 [facility] 0.5 mg/2 mL 3-10 mL 2 (two) it y of nebulizer 00:00: times [place] solution 00 daily. [facility] albuterol Yes [id number] 2.5mg Inhale 3 [facility] 2.5 mg /3 3-10 mL every 2 ity of mL (0.083 00:00: (two) [place] %) 00 hours as Medical nebulizer needed for Bran ch solution Shortness of Breath or Wheezing. budesonide 2021-0 Yes [id number] .5mg Inhale 2 [facility] 0.5 mg/2 mL 3-10 mL 2 (two) it y of nebulizer 00:00: times [place] solution 00 daily. [facility] albuterol 2021-0 Yes [id number] 2.5mg Inhale 3 [facility] 2.5 mg /3 3-10 mL every 2 ity of mL (0.083 00:00: (two) [place] %) 00 hours as Medical nebulizer needed for Bran ch solution Shortness of Breath or Wheezing. budesonide 2021-0 Yes [id number] .5mg Inhale 2 [facility] 0.5 mg/2 mL 3-10 mL 2 (two) it y of nebulizer 00:00: times [place] solution 00 daily. [facility] albuterol 2021-0 Yes [id number] 2.5mg Inhale 3 [facility] 2.5 mg /3 3-10 mL every 2 ity of mL (0.083 00:00: (two) [place] %) 00 hours as Medical nebulizer needed for Bran ch solution Shortness of Breath or Wheezing. budesonide 2021-0 Yes [id number] .5mg Inhale 2 [facility] 0.5 mg/2 mL 3-10 mL 2 (two) it y of nebulizer 00:00: times [place] solution 00 daily. [facility] albuterol 2021-0 Yes [id number] 2.5mg Inhale 3 [facility] 2.5 mg /3 3-10 mL every 2 ity of mL (0.083 00:00: (two) [place] %) 00 hours as Medical nebulizer needed for Bran ch solution Shortness of Breath or Wheezing. budesonide 2021-0 Yes [id number] .5mg Inhale 2 [facility] 0.5 mg/2 mL 3-10 mL 2 (two) it y of nebulizer 00:00: times [place] solution 00 daily. [facility] albuterol 2-0 Yes [id number] 2.5mg Inhale 3 [facility] 2.5 mg /3 3-10 mL every 2 ity of mL (0.083 00:00: (two) [place] %) 00 hours as Medical nebulizer needed for [facility] solution Shortness of Breath or Wheezing. budesonide 2021-0 Yes [id number] .5mg Inhale 2 [facility] 0.5 mg/2 mL 3-10 mL 2 (two) it y of nebulizer 00:00: times [place] solution 00 daily. [facility] albuterol 2021-0 Yes [id number] 2.5mg Inhale 3 [facility] 2.5 mg /3 3-10 mL every 2 ity of mL (0.083 00:00: (two) [place] %) 00 hours as Medical nebulizer needed for [facility] solution Shortness of Breath or Wheezing. budesonide 2021-0 Yes [id number] .5mg Inhale 2 [facility] 0.5 mg/2 mL 3-10 mL 2 (two) it y of nebulizer 00:00: times [place] solution 00 daily. [facility] albuterol 2021-0 Yes [id number] 2.5mg Inhale 3 [facility] 2.5 mg /3 3-10 mL every 2 ity of mL (0.083 00:00: (two) [place] %) 00 hours as Medical nebulizer needed for Bran [facility] solution Shortness of Breath or Wheezing. budesonide 2021-0 Yes [id number] .5mg Inhale 2 [facility] 0.5 mg/2 mL 3-10 mL 2 (two) it y of nebulizer 00:00: times [place] solution 00 daily. [facility] albuterol 2021-0 Yes [id number] 2.5mg Inhale 3 [facility] 2.5 mg /3 3-10 mL every 2 ity of mL (0.083 00:00: (two) [place] %) 00 hours as Medical nebulizer needed for Bran [facility] solution Shortness of Breath or Wheezing. budesonide 2021-0 Yes [id number] .5mg Inhale 2 [facility] 0.5 mg/2 mL 3-10 mL 2 (two) it y of nebulizer 00:00: times [place] solution 00 daily. [facility] albuterol 2021-0 Yes [id number] 2.5mg Inhale 3 [facility] 2.5 mg /3 3-10 mL every 2 ity of mL (0.083 00:00: (two) [place] %) 00 hours as Medical nebulizer needed for Bran [facility] solution Shortness of Breath or Wheezing. budesonide 2021-0 Yes [id number] .5mg Inhale 2 [facility] 0.5 mg/2 mL 3-10 mL 2 (two) it y of nebulizer 00:00: times [place] solution 00 daily. [facility] albuterol 2021-0 Yes [id number] 2.5mg Inhale 3 [facility] 2.5 mg /3 3-10 mL every 2 ity of mL (0.083 00:00: (two) [place] %) 00 hours as Medical nebulizer needed for [facility] solution Shortness of Breath or Wheezing. budesonide 2021-0 Yes [id number] .5mg Inhale 2 [facility] 0.5 mg/2 mL 3-10 mL 2 (two) it y of nebulizer 00:00: times [place] solution 00 daily. [facility] albuterol 2021-0 Yes [id number] 2.5mg Inhale 3 [facility] 2.5 mg /3 3-10 mL every 2 ity of mL (0.083 00:00: (two) [place] %) 00 hours as Medical nebulizer needed for [facility] solution Shortness of Breath or Wheezing. budesonide 2021-0 Yes [id number] .5mg Inhale 2 [facility] 0.5 mg/2 mL 3-10 mL 2 (two) it y of nebulizer 00:00: times [place] solution 00 daily. [facility] albuterol 2021-0 Yes [id number] 2.5mg Inhale 3 [facility] 2.5 mg /3 3-10 mL every 2 ity of mL (0.083 00:00: (two) [place] %) 00 hours as Medical nebulizer needed for Bran [facility] solution Shortness of Breath or Wheezing. budesonide 2021-0 Yes [id number] .5mg Inhale 2 [facility] 0.5 mg/2 mL 3-10 mL 2 (two) it y of nebulizer 00:00: times [place] solution 00 daily. [facility] albuterol 2021-0 Yes [id number] 2.5mg Inhale 3 [facility] 2.5 mg /3 3-10 mL every 2 ity of mL (0.083 00:00: (two) [place] %) 00 hours as Medical nebulizer needed for Bran [facility] solution Shortness of Breath or Wheezing. budesonide 2021-0 Yes [id number] .5mg Inhale 2 [facility] 0.5 mg/2 mL 3-10 mL 2 (two) it y of nebulizer 00:00: times [place] solution 00 daily. [facility] budesonide 2022-0 Yes [id number] .5mg Inhale 2 [facility] 0.5 mg/2 mL 3-10 mL 2 (two) it y of nebulizer 00:00: times [place] solution 00 daily. [facility] budesonide 2022-0 Yes [id number] .5mg Inhale 2 [facility] 0.5 mg/2 mL 3-10 mL 2 (two) it y of nebulizer 00:00: times [place] solution 00 daily. [facility] budesonide 2-0 Yes [id number] .5mg Inhale 2 [facility] 0.5 mg/2 mL 3-10 mL 2 (two) it y of nebulizer 00:00: times [place] solution 00 daily. [facility] budesonide 2-0 Yes [id number] .5mg Inhale 2 [facility] 0.5 mg/2 mL 3-10 mL 2 (two) it y of nebulizer 00:00: times [place] solution 00 daily. [facility] budesonide 2-0 Yes [id number] .5mg Inhale 2 [facility] 0.5 mg/2 mL 3-10 mL 2 (two) it y of nebulizer 00:00: times [place] solution 00 daily. [facility] budesonide 2-0 Yes [id number] .5mg Inhale 2 [facility] 0.5 mg/2 mL 3-10 mL 2 (two) it y of nebulizer 00:00: times [place] solution 00 daily. [facility] budesonide 2-0 Yes [id number] .5mg Inhale 2 [facility] 0.5 mg/2 mL 3-10 mL 2 (two) it y of nebulizer 00:00: times [place] solution 00 daily. [facility] budesonide 2-0 Yes [id number] .5mg Inhale 2 [facility] 0.5 mg/2 mL 3-10 mL 2 (two) it y of nebulizer 00:00: times [place] solution 00 daily. [facility] budesonide 2022-0 Yes [id number] .5mg Inhale 2 [facility] 0.5 mg/2 mL 3-10 mL 2 (two) it y of nebulizer 00:00: times [place] solution 00 daily. [facility] budesonide 2022-0 Yes [id number] .5mg Inhale 2 [facility] 0.5 mg/2 mL 3-10 mL 2 (two) it y of nebulizer 00:00: times [place] solution 00 daily. [facility] budesonide 2022-0 Yes [id number] .5mg Inhale 2 [facility] 0.5 mg/2 mL 3-10 mL 2 (two) it y of nebulizer 00:00: times [place] solution 00 daily. [facility] budesonide 2022-0 Yes [id number] .5mg Inhale 2 [facility] 0.5 mg/2 mL 3-10 mL 2 (two) it y of nebulizer 00:00: times [place] solution 00 daily. [facility] budesonide 2-0 Yes [id number] .5mg Inhale 2 [facility] 0.5 mg/2 mL 3-10 mL 2 (two) it y of nebulizer 00:00: times [place] solution 00 daily. [facility] budesonide 2-0 Yes [id number] .5mg Inhale 2 [facility] 0.5 mg/2 mL 3-10 mL 2 (two) it y of nebulizer 00:00: times [place] solution 00 daily. [facility] budesonide 2-0 Yes [id number] .5mg Inhale 2 [facility] 0.5 mg/2 mL 3-10 mL 2 (two) it y of nebulizer 00:00: times [place] solution 00 daily. [facility] budesonide 2-0 Yes [id number] .5mg Inhale 2 [facility] 0.5 mg/2 mL 3-10 mL 2 (two) it y of nebulizer 00:00: times [place] solution 00 daily. [facility] budesonide 2-0 Yes [id number] .5mg Inhale 2 [facility] 0.5 mg/2 mL 3-10 mL 2 (two) it y of nebulizer 00:00: times [place] solution 00 daily. [facility] budesonide 2-0 Yes [id number] .5mg Inhale 2 [facility] 0.5 mg/2 mL 3-10 mL 2 (two) it y of nebulizer 00:00: times [place] solution 00 daily. [facility] budesonide 2022-0 Yes [id number] .5mg Inhale 2 [facility] 0.5 mg/2 mL 3-10 mL 2 (two) it y of nebulizer 00:00: times [place] solution 00 daily. [facility] budesonide 2022-0 Yes [id number] .5mg Inhale 2 [facility] 0.5 mg/2 mL 3-10 mL 2 (two) it y of nebulizer 00:00: times [place] solution 00 daily. [facility] budesonide 2022-0 Yes [id number] .5mg Inhale 2 [facility] 0.5 mg/2 mL 3-10 mL 2 (two) it y of nebulizer 00:00: times [place] solution 00 daily. [facility] budesonide 2022-0 Yes [id number] .5mg Inhale 2 [facility] 0.5 mg/2 mL 3-10 mL 2 (two) it y of nebulizer 00:00: times [place] solution 00 daily. [facility] budesonide 2-0 Yes [id number] .5mg Inhale 2 [facility] 0.5 mg/2 mL 3-10 mL 2 (two) it y of nebulizer 00:00: times [place] solution 00 daily. [facility] budesonide 2-0 Yes [id number] .5mg Inhale 2 [facility] 0.5 mg/2 mL 3-10 mL 2 (two) it y of nebulizer 00:00: times [place] solution 00 daily. [facility] budesonide 2-0 Yes [id number] .5mg Inhale 2 [facility] 0.5 mg/2 mL 3-10 mL 2 (two) it y of nebulizer 00:00: times [place] solution 00 daily. [facility] budesonide 2-0 Yes [id number] .5mg Inhale 2 [facility] 0.5 mg/2 mL 3-10 mL 2 (two) it y of nebulizer 00:00: times [place] solution 00 daily. [facility] budesonide 2-0 Yes [id number] .5mg Inhale 2 [facility] 0.5 mg/2 mL 3-10 mL 2 (two) it y of nebulizer 00:00: times [place] solution 00 daily. [facility] budesonide 2-0 Yes [id number] .5mg Inhale 2 [facility] 0.5 mg/2 mL 3-10 mL 2 (two) it y of nebulizer 00:00: times [place] solution 00 daily. [facility] budesonide 2022-0 Yes [id number] .5mg Inhale 2 [facility] 0.5 mg/2 mL 3-10 mL 2 (two) it y of nebulizer 00:00: times [place] solution 00 daily. [facility] budesonide 2022-0 Yes [id number] .5mg Inhale 2 [facility] 0.5 mg/2 mL 3-10 mL 2 (two) it y of nebulizer 00:00: times [place] solution 00 daily. [facility] budesonide 2022-0 Yes [id number] .5mg Inhale 2 [facility] 0.5 mg/2 mL 3-10 mL 2 (two) it y of nebulizer 00:00: times [place] solution 00 daily. [facility] budesonide 2021-0 Yes [id number] .5mg Inhale 2 [facility] 0.5 mg/2 mL 3-10 mL 2 (two) it y of nebulizer 00:00: times [place] solution 00 daily. [facility] budesonide 0 Yes [id number] .5mg Inhale 2 [facility] 0.5 mg/2 mL 3-10 mL 2 (two) it y of nebulizer 00:00: times [place] solution 00 daily. [facility] budesonide 2022- No [id number] .5mg Inhale 2 [facility] 0.5 mg/2 mL 3-10 01-05 mL 2 (two) i ty of nebulizer 00:00: 00:00 times [place] solution 00 :00 daily. [facility] budesonide 2022- No [id number] .5mg Inhale 2 [facility] 0.5 mg/2 mL 3-10 01-05 mL 2 (two) i ty of nebulizer 00:00: 00:00 times [place] solution 00 :00 daily. [facility] budesonide 2022- No [id number] .5mg Inhale 2 [facility] 0.5 mg/2 mL 3-10 01-05 mL 2 (two) i ty of nebulizer 00:00: 00:00 times [place] solution 00 :00 daily. [facility] budesonide 2022- No [id number] .5mg Inhale 2 [facility] 0.5 mg/2 mL 3-10 01-05 mL 2 (two) i ty of nebulizer 00:00: 00:00 times [place] solution 00 :00 daily. [facility] albuterol 2021- No [id number] 2.5mg Inhale 3 [facility] 2.5 mg /3 3-10 09-29 mL every 2 ity of mL (0.083 00:00: 00:00 (two) [place] %) 00 :00 hours as Medical nebulizer needed for [facility] solution Shortness of Breath or Wheezing. albuterol 2021-2- No [id number] 2.5mg Inhale 3 [facility] 2.5 mg /3 3-10 09-29 mL every 2 ity of mL (0.083 00:00: 00:00 (two) [place] %) 00 :00 hours as Medical nebulizer needed for [facility] solution Shortness of Breath or Wheezing. albuterol 2021- No [id number] 2.5mg Inhale 3 [facility] 2.5 mg /3 3-10 09-29 mL every 2 ity of mL (0.083 00:00: 00:00 (two) [place] %) 00 :00 hours as Medical nebulizer needed for [facility] solution Shortness of Breath or Wheezing. Nebulizer Yes [id number] Provide [facility] Accessories 3-04 nebulizer ity of Kit 00:00: kit and [place] 00 appropriat [facility] accessorie s. Nebulizer Yes [id number] Provide [facility] Accessories 3-04 nebulizer ity of Kit 00:00: kit and appropriat [facility] accessorie s. Nebulizer 0 Yes [id number] Provide [facility] Accessories 3-04 nebulizer ity of Kit 00:00: kit and [place] appropriat [facility] e [facility] accessorie s. Nebulizer Yes [id number] Provide [facility] Accessories 3-04 nebulizer ity of Kit 00:00: kit and appropriat [facility] accessorie s. Nebulizer Yes [id number] Provide [facility] Accessories 3-04 nebulizer ity of Kit 00:00: kit and appropriat [facility] accessorie s. Nebulizer 0 Yes [id number] Provide [facility] Accessories 3-04 nebulizer ity of Kit 00:00: kit and [place] appropriat [facility] e [facility] accessorie s. Nebulizer 0 Yes [id number] Provide [facility] Accessories 3-04 nebulizer ity of Kit 00:00: kit and appropriat [facility] accessorie s. Nebulizer 0 Yes [id number] Provide [facility] Accessories 3-04 nebulizer ity of Kit 00:00: kit and [place] appropriat [facility] e [facility] accessorie s. Nebulizer 0 Yes [id number] Provide [facility] Accessories 3-04 nebulizer ity of Kit 00:00: kit and appropriat [facility] accessorie s. Nebulizer 0 Yes [id number] Provide [facility] Accessories 3-04 nebulizer ity of Kit 00:00: kit and [place] 00 appropriat [facility] accessorie s. Nebulizer 0 Yes [id number] Provide [facility] Accessories 3-04 nebulizer ity of Kit 00:00: kit and [place] 00 appropriat [facility] accessorie s. Nebulizer 0 Yes [id number] Provide [facility] Accessories 3-04 nebulizer ity of Kit 00:00: kit and [place] 00 appropriat [facility] accessorie s. Nebulizer 0 Yes [id number] Provide [facility] Accessories 3-04 nebulizer ity of Kit 00:00: kit and [place] 00 appropriat [facility] accessorie s. Nebulizer 0 Yes [id number] Provide [facility] Accessories 3-04 nebulizer ity of Kit 00:00: kit and [place] 00 appropriat [facility] accessorie s. Nebulizer 0 Yes [id number] Provide [facility] Accessories 3-04 nebulizer ity of Kit 00:00: kit and [place] 00 appropriat [facility] accessorie s. Nebulizer Yes [id number] Provide [facility] Accessories 3-04 nebulizer ity of Kit 00:00: kit and [place] 00 appropriat [facility] accessorie s. Nebulizer Yes [id number] Provide [facility] Accessories 3-04 nebulizer ity of Kit 00:00: kit and [place] 00 appropriat [facility] accessorie s. Nebulizer 0 Yes [id number] Provide [facility] Accessories 3-04 nebulizer ity of Kit 00:00: kit and 00 appropriat [facility] accessorie s. Nebulizer 0 Yes [id number] Provide [facility] Accessories 3-04 nebulizer ity of Kit 00:00: kit and [place] 00 appropriat [facility] accessorie s. Nebulizer 0 Yes [id number] Provide [facility] Accessories 3-04 nebulizer ity of Kit 00:00: kit and [place] 00 appropriat [facility] accessorie s. Nebulizer 0 Yes [id number] Provide [facility] Accessories 3-04 nebulizer ity of Kit 00:00: kit and 00 appropriat [facility] accessorie s. Nebulizer 0 Yes [id number] Provide [facility] Accessories 3-04 nebulizer ity of Kit 00:00: kit and [place] 00 appropriat [facility] accessorie s. Nebulizer 2021-0 Yes [id number] Provide [facility] Accessories 3-04 nebulizer ity of Kit 00:00: kit and [place] 00 appropriat [facility] accessorie s. Nebulizer 2021-0 Yes [id number] Provide [facility] Accessories 3-04 nebulizer ity of Kit 00:00: kit and [place] 00 appropriat [facility] accessorie s. Nebulizer 2021-0 Yes [id number] Provide [facility] Accessories 3-04 nebulizer ity of Kit 00:00: kit and [place] 00 appropriat [facility] accessorie s. Nebulizer 2021-0 Yes [id number] Provide [facility] Accessories 3-04 nebulizer ity of Kit 00:00: kit and [place] 00 appropriat [facility] accessorie s. Nebulizer 2021-0 Yes [id number] Provide [facility] Accessories 3-04 nebulizer ity of Kit 00:00: kit and [place] 00 appropriat [facility] accessorie s. Nebulizer 2021-0 Yes [id number] Provide [facility] Accessories 3-04 nebulizer ity of Kit 00:00: kit and [place] 00 appropriat [facility] accessorie s. Nebulizer 2021-0 Yes [id number] Provide [facility] Accessories 3-04 nebulizer ity of Kit 00:00: kit and [place] 00 appropriat [facility] accessorie s. Nebulizer 2021-0 Yes [id number] Provide [facility] Accessories 3-04 nebulizer ity of Kit 00:00: kit and [place] 00 appropriat [facility] accessorie s. Nebulizer 2021-0 Yes [id number] Provide [facility] Accessories 3-04 nebulizer ity of Kit 00:00: kit and [place] 00 appropriat [facility] accessorie s. Nebulizer 2021-0 Yes [id number] Provide [facility] Accessories 3-04 nebulizer ity of Kit 00:00: kit and [place] 00 appropriat [facility] accessorie s. Nebulizer 2021-0 Yes [id number] Provide [facility] Accessories 3-04 nebulizer ity of Kit 00:00: kit and [place] 00 appropriat [facility] accessorie s. Nebulizer 2021-0 Yes [id number] Provide [facility] Accessories 3-04 nebulizer ity of Kit 00:00: kit and [place] 00 appropriat [facility] accessorie s. Nebulizer 2021-0 Yes [id number] Provide [facility] Accessories 3-04 nebulizer ity of Kit 00:00: kit and [place] 00 appropriat [facility] accessorie s. Nebulizer 2021-0 Yes [id number] Provide [facility] Accessories 3-04 nebulizer ity of Kit 00:00: kit and [place] 00 appropriat [facility] accessorie s. Nebulizer 2021-0 Yes [id number] Provide [facility] Accessories 3-04 nebulizer ity of Kit 00:00: kit and [place] 00 appropriat [facility] accessorie s. Nebulizer 2021-0 Yes [id number] Provide [facility] Accessories 3-04 nebulizer ity of Kit 00:00: kit and [place] 00 appropriat [facility] accessorie s. Nebulizer 2021-0 Yes [id number] Provide [facility] Accessories 3-04 nebulizer ity of Kit 00:00: kit and [place] 00 appropriat [facility] accessorie s. Nebulizer 2021-0 Yes [id number] Provide [facility] Accessories 3-04 nebulizer ity of Kit 00:00: kit and [place] 00 appropriat [facility] accessorie s. Nebulizer 2021-0 Yes [id number] Provide [facility] Accessories 3-04 nebulizer ity of Kit 00:00: kit and [place] 00 appropriat [facility] accessorie s. Nebulizer 2021-0 Yes [id number] Provide [facility] Accessories 3-04 nebulizer ity of Kit 00:00: kit and [place] 00 appropriat [facility] accessorie s. Nebulizer 2021-0 Yes [id number] Provide [facility] Accessories 3-04 nebulizer ity of Kit 00:00: kit and [place] 00 appropriat [facility] accessorie s. Nebulizer 2021-0 Yes [id number] Provide [facility] Accessories 3-04 nebulizer ity of Kit 00:00: kit and [place] 00 appropriat [facility] accessorie s. Nebulizer 2021-0 Yes [id number] Provide [facility] Accessories 3-04 nebulizer ity of Kit 00:00: kit and [place] 00 appropriat [facility] accessorie s. Nebulizer 2021-0 Yes [id number] Provide [facility] Accessories 3-04 nebulizer ity of Kit 00:00: kit and [place] 00 appropriat [facility] accessorie s. Nebulizer 2021-0 Yes [id number] Provide [facility] Accessories 3-04 nebulizer ity of Kit 00:00: kit and 00 appropriat [facility] accessorie s. Nebulizer 2021-0 Yes [id number] Provide [facility] Accessories 3-04 nebulizer ity of Kit 00:00: kit and appropriat [facility] accessorie s. Nebulizer 2021-0 Yes [id number] Provide [facility] Accessories 3-04 nebulizer ity of Kit 00:00: kit and [place] 00 appropriat [facility] accessorie s. Nebulizer 2021-0 Yes [id number] Provide [facility] Accessories 3-04 nebulizer ity of Kit 00:00: kit and appropriat [facility] accessorie s. Nebulizer 2021-0 Yes [id number] Provide [facility] Accessories 3-04 nebulizer ity of Kit 00:00: kit and appropriat [facility] accessorie s. Nebulizer 2021-0 Yes [id number] Provide [facility] Accessories 3-04 nebulizer ity of Kit 00:00: kit and appropriat [facility] accessorie s. Nebulizer 2021-0 Yes [id number] Provide [facility] Accessories 3-04 nebulizer ity of Kit 00:00: kit and appropriat [facility] accessorie s. Nebulizer 2021-0 Yes [id number] Provide [facility] Accessories 3-04 nebulizer ity of Kit 00:00: kit and appropriat [facility] accessorie s. Nebulizer 2021-0 Yes [id number] Provide [facility] Accessories 3-04 nebulizer ity of Kit 00:00: kit and appropriat [facility] accessorie s. Nebulizer 2021-0 Yes [id number] Provide [facility] Accessories 3-04 nebulizer ity of Kit 00:00: kit and appropriat [facility] accessorie s. Nebulizer 2021-0 Yes [id number] Provide [facility] Accessories 3-04 nebulizer ity of Kit 00:00: kit and appropriat [facility] accessorie s. Nebulizer 2021-0 Yes [id number] Provide [facility] Accessories 3-04 nebulizer ity of Kit 00:00: kit and [place] 00 appropriat [facility] accessorie s. Nebulizer 0 Yes [id number] Provide [facility] Accessories 3-04 nebulizer ity of Kit 00:00: kit and [place] 00 appropriat [facility] accessorie s. Nebulizer 0 Yes [id number] Provide [facility] Accessories 3-04 nebulizer ity of Kit 00:00: kit and [place] 00 appropriat [facility] accessorie s. Nebulizer 2021-0 Yes [id number] Provide [facility] Accessories 3-04 nebulizer ity of Kit 00:00: kit and [place] 00 appropriat [facility] accessorie s. Nebulizer 0 Yes [id number] Provide [facility] Accessories 3-04 nebulizer ity of Kit 00:00: kit and 00 appropriat [facility] accessorie s. Nebulizer 0 Yes [id number] Provide [facility] Accessories 3-04 nebulizer ity of Kit 00:00: kit and 00 appropriat [facility] accessorie s. Nebulizer 0 Yes [id number] Provide [facility] Accessories 3-04 nebulizer ity of Kit 00:00: kit and [place] 00 appropriat [facility] accessorie s. Nebulizer 0 Yes [id number] Provide [facility] Accessories 3-04 nebulizer ity of Kit 00:00: kit and 00 appropriat [facility] accessorie s. Nebulizer 0 Yes [id number] Provide [facility] Accessories 3-04 nebulizer ity of Kit 00:00: kit and appropriat [facility] accessorie s. Nebulizer 0 Yes [id number] Provide [facility] Accessories 3-04 nebulizer ity of Kit 00:00: kit and appropriat [facility] accessorie s. Nebulizer 2021-0 Yes [id number] Provide [facility] Accessories 3-04 nebulizer ity of Kit 00:00: kit and 00 appropriat [facility] accessorie s. Nebulizer 2021-0 Yes [id number] Provide [facility] Accessories 3-04 nebulizer ity of Kit 00:00: kit and [place] 00 appropriat [facility] accessorie s. Nebulizer 2021-0 Yes [id number] Provide [facility] Accessories 3-04 nebulizer ity of Kit 00:00: kit and appropriat [facility] accessorie s. Nebulizer 0 Yes [id number] Provide [facility] Accessories 3-04 nebulizer ity of Kit 00:00: kit and [place] 00 appropriat [facility] accessorie s. Nebulizer 0 Yes [id number] Provide [facility] Accessories 3-04 nebulizer ity of Kit 00:00: kit and [place] 00 appropriat [facility] accessorie s. Nebulizer 0 Yes [id number] Provide [facility] Accessories 3-04 nebulizer ity of Kit 00:00: kit and [place] 00 appropriat [facility] accessorie s. Nebulizer 0 Yes [id number] Provide [facility] Accessories 3-04 nebulizer ity of Kit 00:00: kit and [place] 00 appropriat [facility] accessorie s. Nebulizer 0 Yes [id number] Provide [facility] Accessories 3-04 nebulizer ity of Kit 00:00: kit and [place] 00 appropriat [facility] accessorie s. Nebulizer 2021-0 Yes [id number] Provide [facility] Accessories 3-04 nebulizer ity of Kit 00:00: kit and [place] 00 appropriat [facility] accessorie s. Nebulizer 0 Yes [id number] Provide [facility] Accessories 3-04 nebulizer ity of Kit 00:00: kit and [place] 00 appropriat [facility] accessorie s. Nebulizer 0 Yes [id number] Provide [facility] Accessories 3-04 nebulizer ity of Kit 00:00: kit and [place] 00 appropriat [facility] accessorie s. Nebulizer 0 Yes [id number] Provide [facility] Accessories 3-04 nebulizer ity of Kit 00:00: kit and [place] 00 appropriat [facility] accessorie s. Nebulizer 2021-0 Yes [id number] Provide [facility] Accessories 3-04 nebulizer ity of Kit 00:00: kit and [place] 00 appropriat [facility] accessorie s. Nebulizer 0 Yes [id number] Provide [facility] Accessories 3-04 nebulizer ity of Kit 00:00: kit and [place] 00 appropriat [facility] accessorie s. Nebulizer 2021-0 Yes [id number] Provide [facility] Accessories 3-04 nebulizer ity of Kit 00:00: kit and [place] 00 appropriat [facility] accessorie s. Nebulizer 2021-0 Yes [id number] Provide [facility] Accessories 3-04 nebulizer ity of Kit 00:00: kit and [place] 00 appropriat [facility] accessorie s. Nebulizer 0 Yes [id number] Provide [facility] Accessories 3-04 nebulizer ity of Kit 00:00: kit and [place] 00 appropriat [facility] accessorie s. Nebulizer 0 Yes [id number] Provide [facility] Accessories 3-04 nebulizer ity of Kit 00:00: kit and [place] 00 appropriat [facility] accessorie s. Nebulizer 0 Yes [id number] Provide [facility] Accessories 3-04 nebulizer ity of Kit 00:00: kit and [place] 00 appropriat [facility] accessorie s. Nebulizer 0 Yes [id number] Provide [facility] Accessories 3-04 nebulizer ity of Kit 00:00: kit and [place] 00 appropriat [facility] accessorie s. Nebulizer 0 Yes [id number] Provide [facility] Accessories 3-04 nebulizer ity of Kit 00:00: kit and 00 appropriat [facility] accessorie s. Nebulizer 0 Yes [id number] Provide [facility] Accessories 3-04 nebulizer ity of Kit 00:00: kit and [place] 00 appropriat [facility] accessorie s. Nebulizer 0 Yes [id number] Provide [facility] Accessories 3-04 nebulizer ity of Kit 00:00: kit and [place] 00 appropriat [facility] accessorie s. Nebulizer 0 Yes [id number] Provide [facility] Accessories 3-04 nebulizer ity of Kit 00:00: kit and 00 appropriat [facility] accessorie s. Nebulizer 2021-0 Yes [id number] Provide [facility] Accessories 3-04 nebulizer ity of Kit 00:00: kit and [place] 00 appropriat [facility] accessorie s. Nebulizer 0 Yes [id number] Provide [facility] Accessories 3-04 nebulizer ity of Kit 00:00: kit and [place] 00 appropriat [facility] accessorie s. Nebulizer 0 Yes [id number] Provide [facility] Accessories 3-04 nebulizer ity of Kit 00:00: kit and 00 appropriat [facility] accessorie s. Nebulizer 0 Yes [id number] Provide [facility] Accessories 3-04 nebulizer ity of Kit 00:00: kit and [place] 00 appropriat [facility] accessorie s. Nebulizer 2021-0 Yes [id number] Provide [facility] Accessories 3-04 nebulizer ity of Kit 00:00: kit and [place] 00 appropriat [facility] accessorie s. Nebulizer 2021-0 Yes [id number] Provide [facility] Accessories 3-04 nebulizer ity of Kit 00:00: kit and [place] 00 appropriat [facility] accessorie s. Nebulizer 2021-0 Yes [id number] Provide [facility] Accessories 3-04 nebulizer ity of Kit 00:00: kit and [place] 00 appropriat [facility] accessorie s. Nebulizer 2021-0 Yes [id number] [facility] Access[facility] 3-04 nebulizer ity of Kit 00:00: kit and [place] 00 appropriat Medical e Branch accessorie s. Nebulizer 2021-0 Yes [id number] [facility] Accessories 3-04 nebulizer ity of Kit 00:00: kit and [place] 00 appropriat Medical e Branch accessorie s. Nebulizer 2021-0 Yes [id number] [facility] Accessories 3-04 nebulizer ity of Kit 00:00: kit and [place] 00 appropriat Medical e Branch accessorie s. Nebulizer 2021-0 Yes [id number] [facility] Accessories 3-04 nebulizer ity of Kit 00:00: kit and [place] 00 appropriat Medical e Branch accessorie s. Nebulizer 2021-0 Yes [id number] [facility] Accessories 3-04 nebulizer ity of Kit 00:00: kit and [place] 00 appropriat Medical e Branch accessorie s. Nebulizer 2021-0 Yes [id number] [facility] Accessories 3-04 nebulizer ity of Kit 00:00: kit and [place] 00 appropriat Medical e Branch accessorie s. Nebulizer 2021-0 Yes [id number] [facility] Accessories 3-04 nebulizer ity of Kit 00:00: kit and [place] 00 appropriat Medical e Branch accessorie s. Nebulizer 2021-0 Yes [id number] [facility] Accessories 3-04 nebulizer ity of Kit 00:00: kit and [place] 00 appropriat Medical e Branch accessorie s. Nebulizer 2021-0 Yes [id number] [facility] Accessories 3-04 nebulizer ity of Kit 00:00: kit and [place] 00 appropriat Medical e Branch accessorie s. Nebulizer 2021-0 Yes [id number] [facility] Accessories 3-04 nebulizer ity of Kit 00:00: kit and [place] 00 appropriat Medical e Branch accessorie s. Nebulizer 2021-0 Yes [id number] [facility] Accessories 3-04 nebulizer ity of Kit 00:00: kit and 00 appropriat Medical e Branch accessorie s. Nebulizer 2021-0 Yes [id number] [facility] Accessories 3-04 nebulizer ity of Kit 00:00: kit and [place] 00 appropriat Medical e Branch accessorie s. Nebulizer 2021-0 Yes [id number] [facility] Accessories 3-04 nebulizer ity of Kit 00:00: kit and 00 appropriat Medical e Branch accessorie s. Nebulizer 2021-0 Yes [id number] [facility] Accessories 3-04 nebulizer ity of Kit 00:00: kit and 00 appropriat Medical e Branch accessorie s. Nebulizer 2021-0 Yes [id number] [facility] Accessories 3-04 nebulizer ity of Kit 00:00: kit and appropriat Medical e Branch accessorie s. Nebulizer 2021-0 Yes [id number] [facility] Accessories 3-04 nebulizer ity of Kit 00:00: kit and appropriat Medical e Branch accessorie s. Nebulizer 2021-0 Yes [id number] [facility] Accessories 3-04 nebulizer ity of Kit 00:00: kit and appropriat Medical e Branch accessorie s. Nebulizer 2021-0 Yes [id number] Prov[facility] Accessories 3-04 nebulizer ity of Kit 00:00: kit and appropriat Medical e Branch accessorie s. Nebulizer 2021-0 Yes [id number] [facility] Accessories 3-04 nebulizer ity of Kit 00:00: kit and appropriat Medical e Branch accessorie s. Nebulizer 2021-0 Yes [id number] [facility] Accessories 3-04 nebulizer ity of Kit 00:00: kit and 00 appropriat Medical e Branch accessorie s. Nebulizer 2021-0 Yes [id number] [facility] Accessories 3-04 nebulizer ity of Kit 00:00: kit and 00 appropriat Medical e Branch accessorie s. Nebulizer 0 Yes [id number] [facility] Accessories 3-04 nebulizer ity of Kit 00:00: kit and [place] 00 appropriat Medical e Branch accessorie s. Nebulizer 0 Yes [id number] [facility] Accessories 3-04 nebulizer ity of Kit 00:00: kit and [place] 00 appropriat Medical e Branch accessorie s. Nebulizer 0 Yes [id number] [facility] Accessories 3-04 nebulizer ity of Kit 00:00: kit and [place] 00 appropriat Medical e Branch accessorie s. Nebulizer 0 Yes [id number] [facility] Accessories 3-04 nebulizer ity of Kit 00:00: kit and [place] 00 appropriat Medical e Branch accessorie s. Nebulizer 0 Yes [id number] Prov[facility] Accessories 3-04 nebulizer ity of Kit 00:00: kit and [place] 00 appropriat Medical e Branch accessorie s. Nebulizer 0 Yes [id number] [facility] Accessories 3-04 nebulizer ity of Kit 00:00: kit and [place] 00 appropriat Medical e Branch accessorie s. Nebulizer 0 Yes [id number] [facility] Accessories 3-04 nebulizer ity of Kit 00:00: kit and 00 appropriat Medical e Branch accessorie s. Nebulizer 0 Yes [id number] [facility] Accessories 3-04 nebulizer ity of Kit 00:00: kit and [place] 00 appropriat Medical e Branch accessorie s. Nebulizer 0 Yes [id number] [facility] Accessories 3-04 nebulizer ity of Kit 00:00: kit and [place] 00 appropriat Medical e Branch accessorie s. Nebulizer 0 Yes [id number] [facility] Accessories 3-04 nebulizer ity of Kit 00:00: kit and 00 appropriat Medical e Branch accessorie s. Nebulizer 0 Yes [id number] [facility] Accessories 3-04 nebulizer ity of Kit 00:00: kit and [place] 00 appropriat Medical e Branch accessorie s. Nebulizer 0 Yes [id number] [facility] Accessories 3-04 nebulizer ity of Kit 00:00: kit and appropriat Medical e Branch accessorie s. Nebulizer 0 Yes [id number] [facility] Accessories 3-04 nebulizer ity of Kit 00:00: kit and [place] 00 appropriat Medical e Branch accessorie s. Nebulizer 0 Yes [id number] [facility] Accessories 3-04 nebulizer ity of Kit 00:00: kit and [place] 00 appropriat Medical e Branch accessorie s. Nebulizer 2021-0 Yes [id number] Prov[facility] Accessories 3-04 nebulizer ity of Kit 00:00: kit and [place] 00 appropriat Medical e Branch accessorie s. Nebulizer 0 Yes [id number] [facility] Accessories 3-04 nebulizer ity of Kit 00:00: kit and [place] 00 appropriat Medical e Branch accessorie s. Nebulizer 2021-0 Yes [id number] [facility] Accessories 3-04 nebulizer ity of Kit 00:00: kit and [place] 00 appropriat Medical e Branch accessorie s. Nebulizer 2021-0 Yes [id number] [facility] Accessories 3-04 nebulizer ity of Kit 00:00: kit and [place] 00 appropriat Medical e Branch accessorie s. Nebulizer 2021-0 Yes [id number] [facility] Accessories 3-04 nebulizer ity of Kit 00:00: kit and [place] 00 appropriat Medical e Branch accessorie s. Nebulizer 0 Yes [id number] [facility] Accessories 3-04 nebulizer ity of Kit 00:00: kit and [place] 00 appropriat Medical e Branch accessorie s. Nebulizer 0 Yes [id number] [facility] Accessories 3-04 nebulizer ity of Kit 00:00: kit and [place] 00 appropriat Medical e Branch accessorie s. ipratropium 2020-03 Yes [id number] .5mg Inhale 2.5 [facility] 0.02 % 2-03 mL every 4 ity of nebulizer 00:00: (four) [place] solution 00 hours as Medical needed for Branch Wheezing or Shortness of Breath. ipratropium 2020-03 Yes [id number] .5mg Inhale 2.5 [facility] 0.02 % 2-03 mL every 4 ity of nebulizer 00:00: (four) [place] solution 00 hours as Medical needed for Branch Wheezing or Shortness of Breath. ipratropium 2020-03 Yes [id number] .5mg Inhale 2.5 [facility] 0.02 % 2-03 mL every 4 ity of nebulizer 00:00: (four) [place] solution 00 hours as Medical needed for Branch Wheezing or Shortness of Breath. ipratropium 2020-1 Yes [id number] .5mg Inhale 2.5 [facility] 0.02 % 2-03 mL every 4 ity of nebulizer 00:00: (four) [place] solution 00 hours as Medical needed for Branch Wheezing or Shortness of Breath. ipratropium 2020- Yes [id number] .5mg Inhale 2.5 [facility] 0.02 % 2-03 mL every 4 ity of nebulizer 00:00: (four) [place] solution 00 hours as Medical needed for Branch Wheezing or Shortness of Breath. ipratropium 2020- Yes [id number] .5mg Inhale 2.5 [facility] 0.02 % 2-03 mL every 4 ity of nebulizer 00:00: (four) [place] solution 00 hours as Medical needed for Branch Wheezing or Shortness of Breath. ipratropium 2020- Yes [id number] .5mg Inhale 2.5 [facility] 0.02 % 2-03 mL every 4 ity of nebulizer 00:00: (four) [place] solution 00 hours as Medical needed for Branch Wheezing or Shortness of Breath. ipratropium 2020- Yes [id number] .5mg Inhale 2.5 [facility] 0.02 % 2-03 mL every 4 ity of nebulizer 00:00: (four) [place] solution 00 hours as Medical needed for Branch Wheezing or Shortness of Breath. ipratropium 2020-1 Yes [id number] .5mg Inhale 2.5 [facility] 0.02 % 2-03 mL every 4 ity of nebulizer 00:00: (four) [place] solution 00 hours as Medical needed for Branch Wheezing or Shortness of Breath. ipratropium 2020-1 Yes [id number] .5mg Inhale 2.5 [facility] 0.02 % 2-03 mL every 4 ity of nebulizer 00:00: (four) [place] solution 00 hours as Medical needed for Branch Wheezing or Shortness of Breath. ipratropium 2020-1 Yes [id number] .5mg Inhale 2.5 [facility] 0.02 % 2-03 mL every 4 ity of nebulizer 00:00: (four) [place] solution 00 hours as Medical needed for Branch Wheezing or Shortness of Breath. ipratropium 2020-03 Yes [id number] .5mg Inhale 2.5 [facility] 0.02 % 2-03 mL every 4 ity of nebulizer 00:00: (four) [place] solution 00 hours as Medical needed for Branch Wheezing or Shortness of Breath. ipratropium 2020-03 Yes [id number] .5mg Inhale 2.5 [facility] 0.02 % 2-03 mL every 4 ity of nebulizer 00:00: (four) [place] solution 00 hours as Medical needed for Branch Wheezing or Shortness of Breath. ipratropium 2020-03 Yes [id number] .5mg Inhale 2.5 [facility] 0.02 % 2-03 mL every 4 ity of nebulizer 00:00: (four) [place] solution 00 hours as Medical needed for Branch Wheezing or Shortness of Breath. ipratropium 2020-03- No [id number] .5mg Inhale 2.5 [facility] 0.02 % 2-03 09-29 mL every 4 ity of nebulizer 00:00: 00:00 (four) [place] solution 00 :00 hours as Medical needed for Branch Wheezing or Shortness of Breath. ipratropium 2020-03- No [id number] .5mg Inhale 2.5 [facility] 0.02 % 2-03 09-29 mL every 4 ity of nebulizer 00:00: 00:00 (four) [place] solution 00 :00 hours as Medical needed for Branch Wheezing or Shortness of Breath. ipratropium 2020-03- No [id number] .5mg Inhale 2.5 [facility] 0.02 % 2-03 09-29 mL every 4 ity of nebulizer 00:00: 00:00 (four) [place] solution 00 :00 hours as Medical needed for Branch Wheezing or Shortness of Breath. acetaminoph 2020-03- No 2{tbl} Take 2 U nivers en/diphenhy 0-19 10-19 tablets by i ty of dramine 10:59: 00:00 mouth [place] (TYLENOL PM 10 :00 every Medical EXTRA morning Branch STRENGTH and at ORAL) bedtime. Indication s: aches & pains at bedtime; takes at bedtime levothyroxi 2021- No [id number] 175ug Take 1 [facility] ne 175 mcg 7- 01-18 tablet by ity of tablet 00:00: 00:00 mouth [place] 00 :00 every Medical morning. Branch ipratropium 2020- No [id number] 1{spray Use 1 [facility] 42 mcg 7-21 10-19 1 } [place] in ity of (0.06 %) 00:00: 00:00 each [place] nasal spray 00 :00 nostril 2 Med ical (two) Branch times daily. benzonatate 2020- No [id number] 100mg Take 1 [facility] 100 mg 7-05 08-20 capsule by ity of capsule 00:00: 00:00 mouth 2 [place] 00 :00 (two) Medical times Branch daily as needed for Cough. pravastatin 2020- No [id number] 80mg Take 1 [facility] 80 mg 6- 09-30 tablet by ity of tablet 00:00: 00:00 mouth at [place] 00 :00 bedtime. Medical Branch allopurinoL 2020- No [id number] 100mg Take 1 [facility] 100 mg 6-15 12-13 tablet by ity of tablet 00:00: 00:00 mouth [place] 00 :00 daily. Medical Branch hydrOXYzine 2020- No [id number] 10mg Take 1 [facility] 10 mg 6- 08-20 tablet by ity of tablet 00:00: 00:00 mouth [place] 00 :00 every 6 Medical (six) Branch hours as needed for Itching or Anxiety (Insomnia) . traZODone 2020- No [id number] 50mg Take 1 [facility] 50 mg 6- 09-07 tablet by ity of tablet 00:00: 00:00 mouth at [place] 00 :00 bedtime. Medical Branch tamsulosin 2020- No [id number] .4mg Take 1 [facility] 0.4 mg 24 6- 08-20 capsule by ity of hr capsule 00:00: 00:00 mouth [place] 00 :00 daily. Medical Branch omeprazole 2020- No [id number] 40mg Take 1 [facility] 40 mg 5-27 11-20 capsule by ity of capsule 00:00: 00:00 mouth [place] 00 :00 daily. Medical Branch glipiZIDE 5 2020- No [id number] 2.5mg Take 0.5 [facility] mg tablet 06-29-18 tablets by ity of 00:00: 00:00 mouth 2 [place] 00 :00 (two) Medical times Branch daily. May increase to 1 tablet BID gradually if fasting glucose remains >130. fexofenadin 2020- No [id number] 180mg Take 1 [facility] e 180 mg 06-08 tablet by ity o f tablet 00:00: 00:00 mouth [place] 00 :00 daily. Medical Branch azelastine 2020- No [id number] 1{spray Use 1 [facility] 137 mcg 06-08 } [place] in ity of (0.1 %) 00:00: 00:00 each [place] nasal spray 00 :00 nostril 2 Med ical (two) Branch times daily. Use in each nostril as directed fluticasone 2020- No [id number] 1{spray Use 1 [facility] propionate 06-08 } [place] in ity of 50 00:00: 00:00 each [place] mcg/actuati 00 :00 nostril 2 Med ical on nasal (two) Branch spray times daily. azelastine 2020- No [id number] 1{spray Use 1 [facility] 137 mcg 04-28 } [place] in ity of (0.1 %) 00:00: 00:00 each [place] nasal spray 00 :00 nostril 2 Med ical (two) Branch times daily. Use in each nostril as directed allopurinoL 2020- No [id number] 100mg Take 1 [facility] 100 mg 04-25-14 tablet by ity of tablet 00:00: 00:00 mouth [place] 00 :00 daily. Medical Branch hydrOXYzine 2020- No [id number] 10mg Take 1 [facility] 10 mg 04-25-07 tablet by ity of tablet 00:00: 00:00 mouth [place] 00 :00 every 6 Medical (six) Branch hours as needed for Itching or Anxiety (Insomnia) . furosemide 2020- No [id number] 40mg Take 1 [facility] 40 mg 2-17 08-20 tablet by ity of tablet 00:00: 00:00 mouth [place] 00 :00 every Medical morning Branch and evening. furosemide 2020- No [id number] 40mg Take 1 [facility] 40 mg 2-17 08-20 tablet by ity of tablet 00:00: 00:00 mouth [place] 00 :00 every Medical morning Branch and evening. lisinopriL 2020- No [id number] 5mg Take 1 [facility] 5 mg tablet 2-10 05-12 tablet by it y of 00:00: 04:59 mouth [place] 00 :00 daily for Medical 90 days. Branch levothyroxi 2020- No [id number] 175ug Take 1 [facility] ne 175 mcg 03-30- tablet by ity of tablet 00:00: 00:00 mouth [place] 00 :00 every Medical morning Branch for 90 days. albuterol 2020- No 2{puff} Inhale 2 [facility] 90 1-21 10-18 Puffs ity of mcg/actuati 00:00: 00:00 every 6 [place] on inhaler 00 :00 (six) Medical hours as Branch needed for Wheezing or Shortness of Breath. albuterol 2020- No 2{puff} Inhale 2 [facility] 90 1-21 10-18 Puffs ity of mcg/actuati 00:00: 00:00 every 6 [place] on inhaler 00 :00 (six) Medical hours as Branch needed for Wheezing or Shortness of Breath. guaiFENesin 2020- No [id number] 200mg Take 1 [facility] 200 mg 1-19 10-19 tablet by ity of tablet 00:00: 00:00 mouth [place] 00 :00 every 4 Medical (four) Branch hours as needed for Cough. guaiFENesin 2020- No [id number] 200mg Take 1 [facility] 200 mg 1-19 10-19 tablet by ity of tablet 00:00: 00:00 mouth [place] 00 :00 every 4 Medical (four) Branch hours as needed for Cough. traZODone 2020- No [id number] 50mg Take 1 [facility] 50 mg 1-14 06- tablet by ity of tablet 00:00: 00:00 mouth at [place] 00 :00 bedtime. Medical Branch tamsulosin 2020- No [id number] .4mg Take 1 [facility] 0.4 mg 24 1-14 04-13 capsule by ity of hr capsule 00:00: 00:00 mouth [place] 00 :00 daily. Medical Branch baclofen 10 2019-03- No [id number] 10mg Take 1 [facility] mg tablet 24 08-20 tablet by ity of 00:00: 00:00 mouth 3 [place] 00 :00 (three) Medical times Branch daily as needed for Pain (scale 7-10). baclofen 10 2019-03- No [id number] 10mg Take 1 [facility] mg tablet 03-27 08-20 tablet by ity of 00:00: 00:00 mouth 3 [place] 00 :00 (three) Medical times Branch daily as needed for Pain (scale 7-10). baclofen 10 2019-03- No [id number] 10mg Take 1 [facility] mg tablet 03-27 08-20 tablet by ity of 00:00: 00:00 mouth 3 [place] 00 :00 (three) Medical times Branch daily as needed for Pain (scale 7-10). hydrOXYzine 2019-03 No [id number] 10mg Take 1 [facility] 10 mg 03-27-22 tablet by ity of tablet 00:00: 00:00 mouth [place] 00 :00 every 6 Medical (six) Branch hours as needed for Itching or Anxiety (Insomnia) . atorvastati 2019-03- No Unive rs n 20 mg 03-25 12-29 ity of tablet 00:00: 00:00 [place] 00 :00 Medical Branch traZODone 2019-03- No [id number] 50mg Take 1 [facility] 50 mg -20 01-14 tablet by ity of tablet 00:00: 00:00 mouth at [place] 00 :00 bedtime. Medical Branch guaiFENesin 2019-03- No [id number] 200mg Take 1 [facility] 200 mg 1-20 12-16 tablet by ity of tablet 00:00: 00:00 mouth [place] 00 :00 every 4 Medical (four) Branch hours as needed for Cough. fluticasone 2019-03- No [id number] 1{spray Use 1 [facility] propionate 1- 04-07 } [place] in ity of 50 00:00: 00:00 each [place] mcg/actuati 00 :00 nostril 2 Med ical on nasal (two) Branch spray times daily. fluticasone 2019-03- No [id number] 1{spray Use 1 [facility] propionate 03-05 } [place] in ity of 50 00:00: 00:00 each [place] mcg/actuati 00 :00 nostril 2 Med ical on nasal (two) Branch spray times daily. tamsulosin 2019-03- No [id number] .4mg Take 1 [facility] 0.4 mg 24 0-14 capsule by ity of hr capsule 00:00: 00:00 mouth [place] 00 :00 daily. Medical Branch pravastatin 2020- No [id number] 80mg Take 1 [facility] 80 mg 11-30 tablet by ity of tablet 00:00: 00:00 mouth at [place] 00 :00 bedtime. Medical Branch pravastatin 2020- No [id number] 80mg Take 1 [facility] 80 mg 11-30 tablet by ity of tablet 00:00: 00:00 mouth at [place] 00 :00 bedtime. Medical Branch albuterol 2020- No [id number] INHALE 2 [facility] 90 11-23 02-25 PUFFS BY ity of mcg/actuati 00:00: 00:00 MOUTH [place] on inhaler 00 :00 EVERY 6 Medica l HOURS Branch NEEEDED FOR WHEEZING cetirizine 2020- No [id number] 10mg Take 1 [facility] 10 mg 11-12- tablet by ity of tablet 00:00: 00:00 mouth [place] 00 :00 daily. Medical Branch cetirizine 2020- No [id number] 10mg Take 1 [facility] 10 mg 11-12-07 tablet by ity of tablet 00:00: 00:00 mouth [place] 00 :00 daily. Medical Branch furosemide 2020- No [id number] 40mg Take 1 [facility] 40 mg 11-12 02-15 tablet by ity of tablet 00:00: 00:00 mouth [place] 00 :00 every Medical morning Branch and evening. glipiZIDE 5 2020- No [id number] 2.5mg Take 0.5 [facility] mg tablet 11-01-28 tablets by ity of 00:00: 00:00 mouth 2 [place] 00 :00 (two) Medical times Branch daily. May increase to 1 tablet BID gradually if fasting glucose remains >130. glipiZIDE 5 2020- No [id number] 2.5mg Take 0.5 [facility] mg tablet 11-01 tablets by ity of 00:00: 00:00 mouth 2 [place] 00 :00 (two) Medical times Branch daily. May increase to 1 tablet BID gradually if fasting glucose remains >130. allopurinoL 2020- No [id number] 100mg Take 1 [facility] 100 mg 11-01 tablet by ity of tablet 00:00: 00:00 mouth [place] 00 :00 daily. Medical Branch ipratropium 2020- No [id number] .5mg Inhale 2.5 [facility] 0.02 % 6-11 12-03 mL every 4 ity of nebulizer 00:00: 00:00 (four) [place] solution 00 :00 hours as Medical needed for Branch Wheezing or Shortness of Breath. ipratropium 2020- No [id number] .5mg Inhale 2.5 [facility] 0.02 % 6-11 12-03 mL every 4 ity of nebulizer 00:00: 00:00 (four) [place] solution 00 :00 hours as Medical needed for Branch Wheezing or Shortness of Breath. ipratropium 2020- No [id number] .5mg Inhale 2.5 [facility] 0.02 % 6-11 12-03 mL every 4 ity of nebulizer 00:00: 00:00 (four) [place] solution 00 :00 hours as Medical needed for Branch Wheezing or Shortness of Breath. insulin 2018-03- No [id number] TAKE 10 Un renetta [place] 227 01-10 UNITS IN ity of U-100 00:00: 00:00 THE [place] (LEVEMIR 00 :00 MORNING Medical U-100 AND THEN Branch INSULIN) TAKE 10 100 unit/mL UNITS AT injection NIGHT fluticasone 2018-03- No [id number] 1{puff} Inhale 1 Univers furoate-fitz 2-20 02-18 Puff ity of anterol 00:00: 00:00 daily. [place] (BREO 00 :00 Medical ELLIPTA) Branch 100-25 mcg/dose DsDv predniSONE 2018-03- No [id number] 10mg Take 0.5 [facility] 20 mg 2-20 01-17 tablets by ity of tablet 00:00: 00:00 mouth [place] 00 :00 daily. Medical Branch LEVOTHYROXI 2018-03 2020- No [id number] 137ug TAKE 1 Univers NE 137 mcg 2-20 05-18 TABLET BY ity of tablet 00:00: 00:00 MOUTH [place] 00 :00 EVERY Medical MORNING Branch FUROSEMIDE 2018-03 2020- No [id number] 40mg TAKE 1 [facility] 40 mg 2-20 05-17 TABLET BY ity of tablet 00:00: 00:00 MOUTH [place] 00 :00 EVERY Medical MORNING Branch Insulin 2018-03 2020- No [id number] 5U inject 5 U nivers Lispro, 2-16 01-10 Units ity of Human, 100 00:00: 00:00 under the [place] unit/mL 00 :00 skin 3 Medical cartridge (three) Branch times daily with meals for 30 days. Polyethylen 2018-03- No [id number] 17g Take 1 Univers e Glycol 2-15 19 Packet by ity o f 3350 17 00:00: 00:00 mouth [place] gram powder 00 :00 daily. Medica l Branch Insulin 2018-03 2020- No [id number] Use as Un renetta [place], 2-14 10-20 directed ity of Disposable, 00:00: 00:00 [place] 32 gauge x 00 :00 Medical 07/17" [place] Branch sodium 2018-03 Yes [id number] 4mL Inhale 4 Un renetta chloride 7% 1-22 mL 2 (two) it y of nebulizer 00:00: times [place] solution 00 daily. Medical Branch sodium 2018-03 Yes [id number] 4mL Inhale 4 Un renetta chloride 7% 1-22 mL 2 (two) it y of nebulizer 00:00: times [place] solution 00 daily. [facility] sodium 2018-03 Yes [id number] 4mL Inhale 4 Un renetta chloride 7% 1-22 mL 2 (two) it y of nebulizer 00:00: times [place] solution 00 daily. [facility] sodium 2018-03 Yes [id number] 4mL Inhale 4 Un renetta chloride 7% 1-22 mL 2 (two) it y of nebulizer 00:00: times [place] solution 00 daily. [facility] sodium 2018-03 Yes [id number] 4mL Inhale 4 Un renetta chloride 7% 1-22 mL 2 (two) it y of nebulizer 00:00: times [place] solution 00 daily. Medical Branch sodium 2019- Yes [id number] 4mL Inhale 4 Un renetta chloride 7% 1-22 mL 2 (two) it y of nebulizer 00:00: times [place] solution 00 daily. Medical Branch sodium 2018- Yes [id number] 4mL Inhale 4 Un renetta chloride 7% 1-22 mL 2 (two) it y of nebulizer 00:00: times [place] solution 00 daily. Medical Branch sodium 2018- Yes [id number] 4mL Inhale 4 Un renetta chloride 7% 1-22 mL 2 (two) it y of nebulizer 00:00: times [place] solution 00 daily. Medical Branch sodium 2018- Yes [id number] 4mL Inhale 4 Un renetta chloride 7% 1-22 mL 2 (two) it y of nebulizer 00:00: times [place] solution 00 daily. Medical Branch sodium 2018- Yes [id number] 4mL Inhale 4 Un renetta chloride 7% 1-22 mL 2 (two) it y of nebulizer 00:00: times [place] solution 00 daily. Medical Branch sodium 2018- Yes [id number] 4mL Inhale 4 Un renetta chloride 7% 1-22 mL 2 (two) it y of nebulizer 00:00: times [place] solution 00 daily. Medical Branch sodium 2018- Yes [id number] 4mL Inhale 4 Un renetta chloride 7% 1-22 mL 2 (two) it y of nebulizer 00:00: times [place] solution 00 daily. Medical Branch sodium 2018- Yes [id number] 4mL Inhale 4 Un renetta chloride 7% 1-22 mL 2 (two) it y of nebulizer 00:00: times [place] solution 00 daily. Medical Branch sodium 2018- Yes [id number] 4mL Inhale 4 Un renetta chloride 7% 1-22 mL 2 (two) it y of nebulizer 00:00: times [place] solution 00 daily. Medical Branch sodium 2019- Yes [id number] 4mL Inhale 4 Un renetta chloride 7% 1-22 mL 2 (two) it y of nebulizer 00:00: times [place] solution 00 daily. Medical Branch sodium 2018- Yes [id number] 4mL Inhale 4 Un renetta chloride 7% 1-22 mL 2 (two) it y of nebulizer 00:00: times [place] solution 00 daily. Medical Branch sodium 2018- Yes [id number] 4mL Inhale 4 Un renetta chloride 7% 1-22 mL 2 (two) it y of nebulizer 00:00: times [place] solution 00 daily. Medical Branch sodium 2018-03 Yes [id number] 4mL Inhale 4 Un renetta chloride 7% 1-22 mL 2 (two) it y of nebulizer 00:00: times [place] solution 00 daily. Medical Branch sodium 2018-03 Yes [id number] 4mL Inhale 4 Un renetta chloride 7% 1-22 mL 2 (two) it y of nebulizer 00:00: times [place] solution 00 daily. Medical Branch sodium 2018-03 Yes [id number] 4mL Inhale 4 Un renetta chloride 7% 1-22 mL 2 (two) it y of nebulizer 00:00: times [place] solution 00 daily. Medical Branch sodium 2018-03- No [id number] 4mL Inhale 4 U nivers chloride 7% 1-22 10-05 mL 2 (two) i ty of nebulizer 00:00: 00:00 times [place] solution 00 :00 daily. Medical Branch sodium 2018-03- No [id number] 4mL Inhale 4 U nivers chloride 7% 1-22 10-05 mL 2 (two) i ty of nebulizer 00:00: 00:00 times [place] solution 00 :00 daily. Medical Branch sodium 2018-03- No [id number] 4mL Inhale 4 U nivers chloride 7% 1-22 10-05 mL 2 (two) i ty of nebulizer 00:00: 00:00 times [place] solution 00 :00 daily. Medical Branch sodium 2018-2021- No [id number] 4mL Inhale 4 U nivers chloride 7% 1-22 10-05 mL 2 (two) i ty of nebulizer 00:00: 00:00 times [place] solution 00 :00 daily. Medical Branch sodium 2018-2021- No [id number] 4mL Inhale 4 U nivers chloride 7% 1-22 10-05 mL 2 (two) i ty of nebulizer 00:00: 00:00 times [place] solution 00 :00 daily. Medical Branch sodium 2018-03- No [id number] 4mL Inhale 4 U nivers chloride 7% 1-22 10-05 mL 2 (two) i ty of nebulizer 00:00: 00:00 times [place] solution 00 :00 daily. Medical Branch sodium 2018-03- No [id number] 4mL Inhale 4 U nivers chloride 7% 03-25 10-05 mL 2 (two) i ty of nebulizer 00:00: 00:00 times [place] solution 00 :00 daily. Medical Branch albuterol 2018-03- No [id number] 2.5mg Inhale 3 Univers 2.5 mg /3 03-25 12-03 mL every 4 ity of mL (0.083 00:00: 00:00 (four) [place] %) 00 :00 hours as Medical nebulizer needed for Bran ch solution Wheezing or Shortness of Breath. albuterol 2018-03- No [id number] 2.5mg Inhale 3 [facility] 2.5 mg /3 03-25 12-03 mL every 4 ity of mL (0.083 00:00: 00:00 (four) [place] %) 00 :00 hours as Medical nebulizer needed for Bran ch solution Wheezing or Shortness of Breath. albuterol 2018-03- No [id number] 2.5mg Inhale 3 [facility] 2.5 mg /3 03-25 12-03 mL every 4 ity of mL (0.083 00:00: 00:00 (four) [place] %) 00 :00 hours as Medical nebulizer needed for Bran ch solution Wheezing or Shortness of Breath. albuterol 2018-03- No [id number] 2.5mg Inhale 3 [facility] 2.5 mg /3 03-25 12-03 mL every 4 ity of mL (0.083 00:00: 00:00 (four) [place] %) 00 :00 hours as Medical nebulizer needed for Bran ch solution Wheezing or Shortness of Breath. fluticasone 2018-03 2020- No [id number] 1{spray Use 1 [facility] propionate 03-25 } [place] in ity of 50 00:00: 00:00 each [place] mcg/actuati 00 :00 nostril 2 Med ical on nasal (two) Branch spray times daily. cetirizine 2018-03- No [id number] 10mg Take 1 [facility] 10 mg 03-25 tablet by ity of tablet 00:00: 00:00 mouth [place] 00 :00 daily. Medical [facility] ipratropium 2018-03 2020- No [id number] .5mg Inhale 2.5 [facility] 0.02 % 03-25-11 mL every 4 ity of nebulizer 00:00: 00:00 (four) [place] solution 00 :00 hours as Medical needed for Branch Wheezing or Shortness of Breath. Docusate 2018-03 No Notes: [facility] 1-16 (Same as: l 15:00: Colace) [place] 00 (Do Not Crush) Docusate 2018-03 No Notes: [facility] 1-16 (Same as: l 15:00: Colace) [place] 00 (Do Not Crush) Docusate 2018-03 No Notes: [facility] 1-16 (Same as: l 15:00: Colace) [place] 00 (Do Not Crush) Docusate 2018-03 No Notes: [facility] 1-16 (Same as: l 15:00: Colace) [place] 00 (Do Not Crush) Docusate 2018-03 No Notes: [facility] 1-16 (Same as: l 15:00: Colace) [place] 00 (Do Not Crush) Docusate 2018-03 No Notes: [facility] 1-16 (Same as: l 15:00: Colace) [place] 00 (Do Not Crush) Docusate 2018-03 No Notes: [facility] 1-16 (Same as: l 15:00: Colace) [place] 00 (Do Not Crush) heparin 2018-03 No Notes: [facility] sodium, 1-16 porcine l porcine 06:00: heparin [place] 2500 UNT/ML 00 Injectable Solution heparin 2018-03 No Notes: [facility] sodium, 1-16 porcine l porcine 06:00: heparin [place] 2500 UNT/ML 00 Injectable Solution heparin 2018-03 No Notes: [facility] sodium, 1-16 porcine l porcine 06:00: heparin [place] 2500 UNT/ML 00 Injectable Solution heparin 2018-03 No Notes: [facility] sodium, 1-16 porcine l porcine 06:00: heparin [place] 2500 UNT/ML 00 Injectable Solution heparin 2018-03 No Notes: [facility] sodium, 1-16 porcine l porcine 06:00: heparin [place] 2500 UNT/ML 00 Injectable Solution heparin 2018-03 No Notes: [facility] sodium, 1-16 porcine l porcine 06:00: heparin [place] 2500 UNT/ML 00 Injectable Solution heparin 2018-03 No Notes: [facility] sodium, 1-16 porcine l porcine 06:00: heparin [place] 2500 UNT/ML 00 Injectable Solution methylPREDN 2018-03 No Notes: Randell dilcia ISolone 1-16 (Same l SODium 03:00: as:Solu-ME Jeimy nn SUCCinate 00 DROL, A-Methapre d) sennosides, 2018-03 No Notes: Randell dilcia [facility] 1-16 (Same as: l 03:00: Senokot) [place] Azithromyci 2018-03 No Notes: Randell dilcia n 1-16 (Same As: l 03:00: Zithromax [place] 00 IV) methylPREDN 2018-03 No Notes: Randell dilcia ISolone 1-16 (Same l SODium 03:00: as:Solu-ME [place] nn SUCCinate 00 DROL, A-Methapre d) sennosides, 2018-03 No Notes: Randell dilcia [facility] 1-16 (Same as: l 03:00: Senokot) [place] Azithromyci 2018-03 No Notes: Randell dilcia n 1-16 (Same As: l 03:00: Zithromax [place] 00 IV) methylPREDN 2018-03 No Notes: Randell dilcia ISolone 1-16 (Same l SODium 03:00: as:Solu-ME [place] nn SUCCinate 00 DROL, A-Methapre d) sennosides, 2018-03 No Notes: Randell dilcia [facility] 1-16 (Same as: l 03:00: Senokot) [place] Azithromyci 2018-03 No Notes: Randell dilcia n 1-16 (Same As: l 03:00: Zithromax [place] 00 IV) methylPREDN 2018-03 No Notes: Randell dilcia ISolone 1-16 (Same l SODium 03:00: as:Solu-ME [place] nn SUCCinate 00 DROL, A-Methapre d) sennosides, 2018-03 No Notes: Randell dilcia [facility] 1-16 (Same as: l 03:00: Senokot) [place] Azithromyci 2018-03 No Notes: Randell dilcia n 1-16 (Same As: l 03:00: Zithromax [place] 00 IV) methylPREDN 2018-03 No Notes: Randell dilcia ISolone 1-16 (Same l SODium 03:00: as:Solu-ME [place] nn SUCCinate 00 DROL, A-Methapre d) sennosides, 2018-03 No Notes: Randell dilcia [facility] 1-16 (Same as: l 03:00: Senokot) [place] Azithromyci 2018-03 No Notes: Randell dilcia n 1-16 (Same As: l 03:00: Zithromax [place] 00 IV) methylPREDN 2018-03 No Notes: Randell dilcia ISolone 1-16 (Same l SODium 03:00: as:Solu-ME [place] nn SUCCinate 00 DROL, A-Methapre d) sennosides, 2018-03 No Notes: Randell dilcia [facility] 1-16 (Same as: l 03:00: Senokot) [place] Azithromyci 2018-03 No Notes: Randell dilcia n 1-16 (Same As: l 03:00: Zithromax [place] 00 IV) methylPREDN 2018-03 No Notes: Randell dilcia ISolone 1-16 (Same l SODium 03:00: as:Solu-ME [place] nn SUCCinate 00 DROL, A-Methapre d) sennosides, 2018-03 No Notes: Randell dilcia [facility] 1-16 (Same as: l 03:00: Senokot) [place] Azithromyci 2018-03 No Notes: Randell dilcia n 1-16 (Same As: l 03:00: Zithromax [place] 00 IV) Budesonide 2018-03 No Notes: [facility] ia 1-16 (Same As: l 02:39: Pulmicort) [place] Budesonide 2018-03 No Notes: Mem[facility] ia 1-16 (Same As: l 02:39: Pulmicort) [place] Budesonide 2018-03 No Notes: Mem[facility] ia 1-16 (Same As: l 02:39: Pulmicort) [place] Budesonide 2018-03 No Notes: Memor ia 1-16 (Same As: l 02:39: Pulmicort) [place] Budesonide 2018-03 No Notes: Memor ia 1-16 (Same As: l 02:39: Pulmicort) [place] Budesonide 2018-03 No Notes: Memor ia 1-16 (Same As: l 02:39: Pulmicort) [place] Budesonide 2018-03 No Notes: Memor ia 1-16 [...] influenza 2018-03 No Notes: Memori a virus -16 (Same as: l vaccine, 01:44: Fluzorobel Gallagher n inactivated 07 High-Dose) high-dose For 65 preservativ years of e-free age of intramuscul older (0.5 ar ml IM) suspension Shake well before use Furosemide 2018-03 Yes 40 mg = 1 Me moria 40 MG Oral 1-16 tab, PO, l Tablet 01:31: Daily, 0 [place] [Lasix] 00 Refill(s) amLODIPine 2018-03 Yes 5 mg = 1 Mem oria 5 mg oral 1-16 tab, PO, l tablet 01:31: Daily, 0 [place] 00 Refill(s) Albuterol 2018-03 Yes 2.5 mg [...] tab, PO, l tablet 01:31: Daily, 0 [place] 00 Refill(s) Albuterol 2018-03 Yes 2.5 mg = 3 Me moria 0.83 MG/ML 1-16 mL, NEB, l Inhalant 01:31: Q6H, PRN Jeimy nn Solution 00 as needed for wheezing, 0 Refill(s) Furosemide 2018-03 Yes 40 mg = 1 Me moria 40 MG Oral 1-16 tab, PO, l Tablet 01:31: Daily, 0 [place] [Lasix] 00 Refill(s) amLODIPine 2018-03 Yes 5 [...] tab, PO, l Tablet 01:31: Daily, 0 [place] [Lasix] 00 Refill(s) amLODIPine 2018-03 Yes 5 mg = 1 Mem oria 5 mg oral 1-16 tab, PO, l tablet 01:31: Daily, 0 [place] 00 Refill(s) Albuterol 2018-03 Yes 2.5 mg = 3 Me moria 0.83 MG/ML 1-16 mL, NEB, l Inhalant 01:31: Q6H, PRN [place] nn Solution 00 as needed for wheezing, 0 Refill(s) Dextrose 2018-03 No 12.5 gm, Memor ia 50% Syringe 1-16 25 mL, l 01:03: Route: [place] 00 IVP, Drug Form: INJ, Dosing Weight 93.636, kg, PRN, PRN Blood Glucose Results, Start date: 01/16/19 19:03:00 REHAB DIRECTOR OCCUPATIONAL THERAPIST, Duration: 30 day, Stop date: 02/15/19 19:02:00 REHAB DIRECTOR OCCUPATIONAL THERAPIST, 0 Glucagon 2018-03 No 1 mg, [facility] 1-16 Route: IM, l 01:03: Drug form: [place] 00 PDR/INJ, PRN, Dosing Weight 93.636, kg, PRN Blood Glucose Results, Start date: 01/16/19 19:03:00 REHAB DIRECTOR OCCUPATIONAL THERAPIST, Duration: 30 day, Stop date: 02/15/19 19:02:00 REHAB DIRECTOR OCCUPATIONAL THERAPIST, 0 Insulin 2018-03 No Notes: [facility] Lispro 1-16 (Same as: l 01:03: Humalog) [place] 00 Roll in palms of hands gently; [...] Blood Glucose Results, Start date: 01/16/19 19:03:00 REHAB DIRECTOR OCCUPATIONAL THERAPIST, Duration: 30 day, Stop date: 02/15/19 19:02:00 REHAB DIRECTOR OCCUPATIONAL THERAPIST, 0 Glucagon 2018-03 No 1 mg, [facility] 1-16 Route: IM, l 01:03: Drug form: [place] 00 PDR/INJ, PRN, Dosing Weight 93.636, kg, PRN Blood Glucose Results, Start date: 01/16/19 19:03:00 REHAB DIRECTOR OCCUPATIONAL THERAPIST, Duration: 30 day, Stop date: 02/15/19 19:02:00 REHAB DIRECTOR OCCUPATIONAL THERAPIST, 0 Insulin 2018- No Notes: [facility] Lispro 1-16 (Same as: l :: Humalog) [place] 00 Roll in palms of [...] Blood Glucose Results, Start date: 01/16/19 19:03:00 REHAB DIRECTOR OCCUPATIONAL THERAPIST, Duration: 30 day, Stop date: 02/15/19 19:02:00 REHAB DIRECTOR OCCUPATIONAL THERAPIST, 0 Glucagon 2018-03 No 1 mg, [facility] 1-16 Route: IM, l 01:03: Drug form: [place] 00 PDR/INJ, PRN, Dosing Weight 93.636, kg, PRN Blood Glucose Results, Start date: 01/16/19 19:03:00 REHAB DIRECTOR OCCUPATIONAL THERAPIST, Duration: 30 day, Stop date: 02/15/19 19:02:00 REHAB DIRECTOR OCCUPATIONAL THERAPIST, 0 Insulin 2018- No Notes: [facility] Lispro 1-16 (Same as: l :03: Humalog) [place] 00 Roll in palms of hands gently; Do not shake vigorously . WASTE: F/P - Black; E - Municipal Trash Bin Stable for 28 days at room temperatur e. Expires in days from ____Date Dextrose 2018-03 No 12.5 gm, Mem[facility] ia 50% Syringe 1-16 25 mL, l 01:03: Route: [place] 00 IVP, Drug Form: INJ, Dosing Weight 93.636, kg, PRN, PRN Blood Glucose Results, Start date: 01/16/19 19:03:00 REHAB DIRECTOR OCCUPATIONAL THERAPIST, Duration: 30 day, Stop date: 02/15/19 19:02:00 REHAB DIRECTOR OCCUPATIONAL THERAPIST, 0 Glucagon 2018-03 No 1 mg, [facility] 1-16 Route: IM, l 01:03: Drug form: [place] 00 PDR/INJ, PRN, Dosing Weight 93.636, kg, PRN Blood Glucose Results, Start date: 01/16/19 19:03:00 REHAB DIRECTOR OCCUPATIONAL THERAPIST, Duration: 30 day, Stop date: 02/15/19 19:02:00 REHAB DIRECTOR OCCUPATIONAL THERAPIST, 0 Insulin 2018- No Notes: [facility] Lispro 1-16 (Same as: l 01:03: Humalog) [place] 00 Roll in palms of hands gently; Do not shake vigorously . WASTE: F/P - Black; E - Municipal Trash Bin Stable for 28 days at room temperatur e. Expires in days from ____Date Dextrose 2018-03 No 12.5 gm, Memor ia 50% Syringe 1-16 25 mL, l 01:03: Route: [place] 00 IVP, Drug Form: INJ, Dosing Weight 93.636, kg, PRN, PRN Blood Glucose Results, Start date: 01/16/19 19:03:00 REHAB DIRECTOR OCCUPATIONAL THERAPIST, Duration: 30 day, Stop date: 02/15/19 19:02:00 REHAB DIRECTOR OCCUPATIONAL THERAPIST, 0 Glucagon 2018-03 No 1 mg, [facility] 1-16 Route: IM, l 01:03: Drug form: [place] 00 PDR/INJ, PRN, Dosing Weight 93.636, kg, PRN Blood Glucose Results, Start date: 01/16/19 19:03:00 REHAB DIRECTOR OCCUPATIONAL THERAPIST, Duration: 30 day, Stop date: 02/15/19 19:02:00 REHAB DIRECTOR OCCUPATIONAL THERAPIST, 0 Insulin 2018- No Notes: [facility] Lispro 1-16 (Same as: l 01:03: Humalog) [place] 00 Roll in palms of hands gently; [...] Blood Glucose Results, Start date: 01/16/19 19:03:00 REHAB DIRECTOR OCCUPATIONAL THERAPIST, Duration: 30 day, Stop date: 02/15/19 19:02:00 REHAB DIRECTOR OCCUPATIONAL THERAPIST, 0 Glucagon 2019- No 1 mg, [facility] 1-16 Route: IM, l 01:03: Drug form: [place] 00 PDR/INJ, PRN, Dosing Weight 93.636, kg, PRN Blood Glucose Results, Start date: 01/16/19 19:03:00 REHAB DIRECTOR OCCUPATIONAL THERAPIST, Duration: 30 day, Stop date: 02/15/19 19:02:00 REHAB DIRECTOR OCCUPATIONAL THERAPIST, 0 Insulin 2018- No Notes: [facility] Lispro 1-16 (Same as: l 01:03: Humalog) [place] 00 Roll in palms of hands gently; Do not shake vigorously . WASTE: F/P - Black; E - Municipal Trash Bin Stable for 28 days at room temperatur e. Expires in days from ____Date Dextrose 2018- No 12.5 gm, Memor ia 50% Syringe 1-16 25 mL, l 01:03: Route: [place] 00 IVP, Drug Form: INJ, Dosing Weight 93.636, kg, PRN, PRN Blood Glucose Results, Start date: 01/16/19 19:03:00 REHAB DIRECTOR OCCUPATIONAL THERAPIST, Duration: 30 day, Stop date: 02/15/19 19:02:00 REHAB DIRECTOR OCCUPATIONAL THERAPIST, 0 Glucagon 2018-03 No 1 mg, [facility] 1-16 Route: IM, l 01:03: Drug form: [place] 00 PDR/INJ, PRN, Dosing Weight 93.636, kg, PRN Blood Glucose Results, Start date: 01/16/19 19:03:00 REHAB DIRECTOR OCCUPATIONAL THERAPIST, Duration: 30 day, Stop date: 02/15/19 19:02:00 REHAB DIRECTOR OCCUPATIONAL THERAPIST, 0 Insulin 2018- No Notes: [facility] Lispro 1-16 (Same as: l 01:03: Humalog) [place] 00 Roll in palms of hands gently; Do not shake vigorously . WASTE: F/P - Black; E - Municipal Trash Bin Stable for 28 days at room temperatur e. Expires in days from ____Date Hydralazine 2018-03 No Notes: Randell dilcia 1-16 (Same as: l 01:01: Apresoline [place] 00 ) Push over 5 minutes Hydralazine 2018-03 No Notes: Randell dilcia 1-16 (Same as: l 01:01: Apresoline [place] 00 ) Push over 5 minutes Hydralazine 2018-03 No Notes: Randell dilcia 1-16 (Same as: l 01:01: Apresoline [place] 00 ) Push over 5 minutes Hydralazine 2018-03 No Notes: Randell dilcia 1-16 (Same as: l 01:01: Apresoline [place] 00 ) Push over 5 minutes Hydralazine 2018-03 No Notes: Randell dilcia 1-16 (Same as: l 01:01: Apresoline [place] 00 ) Push over 5 minutes Hydralazine 2018-03 No Notes: Randell dilcia 1-16 (Same as: l 01:01: Apresoline [place] 00 ) Push over 5 minutes Hydralazine 2018-03 No Notes: Randell dilcia 1-16 (Same as: l 01:01: Apresoline [place] 00 ) Push over 5 minutes Albuterol 2018-03 No Notes: Memori a 0.833 MG/ML 1-16 (Same as: :00: Duoneb) [place] Ipratropium 00 [place] 0.167 MG/ML Inhalant Solution Albuterol 2018-03 No Notes: Memori a 0.833 MG/ML 1-16 (Same as: :00: Duoneb) [place] Ipratropium 00 [place] 0.167 MG/ML Inhalant Solution Albuterol 2018-03 No Notes: Memori a 0.833 MG/ML 1-16 (Same as: :00: Duoneb) [place] Ipratropium 00 [place] 0.167 MG/ML Inhalant Solution Albuterol 2018-03 No Notes: Memori a 0.833 MG/ML 1-16 (Same as: :00: Duoneb) [place] Ipratropium 00 [place] 0.167 MG/ML Inhalant Solution Albuterol 2018-03 No Notes: Memori a 0.833 MG/ML 1-16 (Same as: :00: Duoneb) [place] Ipratropium 00 [place] 0.167 MG/ML Inhalant Solution Albuterol 2018-03 No Notes: Memori a 0.833 MG/ML 1-16 (Same as: l / :00: Duoneb) [place] Ipratropium 00 [place] 0.167 MG/ML Inhalant Solution Albuterol 2018-03 No Notes: Memori a 0.833 MG/ML 1-16 (Same as: l / :00: Duoneb) [place] Ipratropium 00 [place] 0.167 MG/ML Inhalant Solution Dextrose 2018-03 No 12.5 gm, Memor ia 50% Syringe 1-16 25 mL, l 00:56: Route: [place] 00 IVP, Drug Form: INJ, Dosing Weight 93.636, kg, PRN, PRN Blood Glucose Results, Start date: 01/16/19 18:56:00 REHAB DIRECTOR OCCUPATIONAL THERAPIST, Duration: 30 day, Stop date: 02/15/19 18:55:00 REHAB DIRECTOR OCCUPATIONAL THERAPIST, 0 Glucagon 2018-03 No 1 mg, [facility] 03-19 Route: IM, l 00:56: Drug form: [place] 00 PDR/INJ, PRN, Dosing Weight 93.636, kg, PRN Blood Glucose Results, Start date: 01/16/19 18:56:00 REHAB DIRECTOR OCCUPATIONAL THERAPIST, Duration: 30 day, Stop date: 02/15/19 18:55:00 REHAB DIRECTOR OCCUPATIONAL THERAPIST, 0 Acetaminoph 2018-03 No Notes: Do Annika nogueraa en 03-19 not exceed l 00:56: 4 gm/day. [place] 00 (Same as: Tylenol) Dextrose 2018-03 No 12.5 gm, Memor ia 50% Syringe 1-16 25 mL, l 00:56: Route: [place] 00 IVP, Drug Form: INJ, Dosing Weight 93.636, kg, PRN, PRN Blood Glucose Results, Start date: 01/16/19 18:56:00 REHAB DIRECTOR OCCUPATIONAL THERAPIST, Duration: 30 day, Stop date: 02/15/19 18:55:00 REHAB DIRECTOR OCCUPATIONAL THERAPIST, 0 Glucagon 2018-03 No 1 mg, Memoria 16 Route: IM, l 00:56: Drug form: [place] 00 PDR/INJ, PRN, Dosing Weight 93.636, kg, PRN Blood Glucose Results, Start date: 01/16/19 18:56:00 REHAB DIRECTOR OCCUPATIONAL THERAPIST, Duration: 30 day, Stop date: 02/15/19 18:55:00 REHAB DIRECTOR OCCUPATIONAL THERAPIST, 0 Acetaminoph 2018-03 No Notes: Do Annika emoria en 03-19 not exceed l 00:56: 4 gm/day. [place] 00 (Same as: Tylenol) Dextrose 2018-03 No 12.5 gm, Memor ia 50% Syringe 1-16 25 mL, l 00:56: Route: [place] 00 IVP, Drug Form: INJ, Dosing Weight 93.636, kg, PRN, PRN Blood Glucose Results, Start date: 01/16/19 18:56:00 REHAB DIRECTOR OCCUPATIONAL THERAPIST, Duration: 30 day, Stop date: 02/15/19 18:55:00 REHAB DIRECTOR OCCUPATIONAL THERAPIST, 0 Glucagon 2018-03 No 1 mg, [facility] 16 Route: IM, l 00:56: Drug form: [place] 00 PDR/INJ, PRN, Dosing Weight 93.636, kg, PRN Blood Glucose Results, Start date: 01/16/19 18:56:00 REHAB DIRECTOR OCCUPATIONAL THERAPIST, Duration: 30 day, Stop date: 02/15/19 18:55:00 REHAB DIRECTOR OCCUPATIONAL THERAPIST, 0 Acetaminoph 2018-03 No Notes: Do Annika emoria en 03-19 not exceed l 00:56: 4 gm/day. [place] (Same as: Tylenol) Dextrose 2018-03 No 12.5 gm, Memor ia 50% Syringe 1-16 25 mL, l 00:56: Route: [place] 00 IVP, Drug Form: INJ, Dosing Weight 93.636, kg, PRN, PRN Blood Glucose Results, Start date: 01/16/19 18:56:00 REHAB DIRECTOR OCCUPATIONAL THERAPIST, Duration: 30 day, Stop date: 02/15/19 18:55:00 REHAB DIRECTOR OCCUPATIONAL THERAPIST, 0 Glucagon 2018-03 No 1 mg, [facility] 16 Route: IM, l 00:56: Drug form: [place] 00 PDR/INJ, PRN, Dosing Weight 93.636, kg, PRN Blood Glucose Results, Start date: 01/16/19 18:56:00 REHAB DIRECTOR OCCUPATIONAL THERAPIST, Duration: 30 day, Stop date: 02/15/19 18:55:00 REHAB DIRECTOR OCCUPATIONAL THERAPIST, 0 Acetaminoph 2018-03 No Notes: Do Annika emoria en 16 not exceed l 00:56: 4 gm/day. [place] 00 (Same as: Tylenol) Dextrose 2018-03 No 12.5 gm, Memor ia 50% Syringe 1-16 25 mL, l 00:56: Route: [place] 00 IVP, Drug Form: INJ, Dosing Weight 93.636, kg, PRN, PRN Blood Glucose Results, Start date: 01/16/19 18:56:00 REHAB DIRECTOR OCCUPATIONAL THERAPIST, Duration: 30 day, Stop date: 02/15/19 18:55:00 REHAB DIRECTOR OCCUPATIONAL THERAPIST, 0 Glucagon 2018-03 No 1 mg, [facility] 1-16 Route: IM, l 00:56: Drug form: [place] 00 PDR/INJ, PRN, Dosing Weight 93.636, kg, PRN Blood Glucose Results, Start date: 01/16/19 18:56:00 REHAB DIRECTOR OCCUPATIONAL THERAPIST, Duration: 30 day, Stop date: 02/15/19 18:55:00 REHAB DIRECTOR OCCUPATIONAL THERAPIST, 0 Acetaminoph 2018-03 No Notes: Do M emoria en 03-19 not exceed l 00:56: 4 gm/day. [place] (Same as: Tylenol) Dextrose 2018-03 No 12.5 gm, Memor ia 50% Syringe 1-16 25 mL, l 00:56: Route: [place] 00 IVP, Drug Form: INJ, Dosing Weight 93.636, kg, PRN, PRN Blood Glucose Results, Start date: 01/16/19 18:56:00 REHAB DIRECTOR OCCUPATIONAL THERAPIST, Duration: 30 day, Stop date: 02/15/19 18:55:00 REHAB DIRECTOR OCCUPATIONAL THERAPIST, 0 Glucagon 2018-03 No 1 mg, [facility] 1-16 Route: IM, l 00:56: Drug form: [place] 00 PDR/INJ, PRN, Dosing Weight 93.636, kg, PRN Blood Glucose Results, Start date: 01/16/19 18:56:00 REHAB DIRECTOR OCCUPATIONAL THERAPIST, Duration: 30 day, Stop date: 02/15/19 18:55:00 REHAB DIRECTOR OCCUPATIONAL THERAPIST, 0 Acetaminoph 2018- No Notes: Do M emoria en 16 not exceed l 00:56: 4 gm/day. [place] (Same as: Tylenol) Dextrose 2018-03 No 12.5 gm, Memor ia 50% Syringe 1-16 25 mL, l 00:56: Route: [place] 00 IVP, Drug Form: INJ, Dosing Weight 93.636, kg, PRN, PRN Blood Glucose Results, Start date: 01/16/19 18:56:00 REHAB DIRECTOR OCCUPATIONAL THERAPIST, Duration: 30 day, Stop date: 02/15/19 18:55:00 REHAB DIRECTOR OCCUPATIONAL THERAPIST, 0 Glucagon 2018-03 No 1 mg, [facility] 1-16 Route: IM, l 00:56: Drug form: [place] 00 PDR/INJ, PRN, Dosing Weight 93.636, kg, PRN Blood Glucose Results, Start date: 01/16/19 18:56:00 REHAB DIRECTOR OCCUPATIONAL THERAPIST, Duration: 30 day, Stop date: 02/15/19 18:55:00 REHAB DIRECTOR OCCUPATIONAL THERAPIST, 0 Acetaminoph 2018-03 No Notes: Do M emoria en 1-16 not exceed l 00:56: 4 gm/day. [place] 00 (Same as: Tylenol) Tramadol 2018-03 No Notes: Not Mem oria 1-16 to exceed l 00:03: 400mg/day. [place] 00 (Same As: Ultram) Tramadol 2018-03 No Notes: Not Mem oria 1-16 to exceed l 00:03: 400mg/day. [place] 00 (Same As: Ultram) Tramadol 2018-03 No Notes: Not Mem oria 1-16 to exceed l 00:03: 400mg/day. [place] 00 (Same As: Ultram) Tramadol 2018-03 No Notes: Not Mem oria 1-16 to exceed l 00:03: 400mg/day. [place] 00 (Same As: Ultram) Tramadol 2018-03 No Notes: Not Mem oria 1-16 to exceed l 00:03: 400mg/day. [place] 00 (Same As: Ultram) Tramadol 2018-03 No Notes: Not Mem oria 1-16 to exceed l 00:03: 400mg/day. [place] 00 (Same As: Ultram) Tramadol 2018-03 No Notes: Not Mem oria 1-16 to exceed l 00:03: 400mg/day. [place] 00 (Same As: Ultram) Acetaminoph 2018-03 No [...] en 1-15 acetaminop l 22:54: hen 4000 [place] 00 mg/day (4 gm/day). (Same as: Tylenol [...] 1-15 (Same as: l / 21:21: Duoneb) [place] Ipratropium 00 [place] 0.167 MG/ML Inhalant Solution Prednisone 2018-03 No Notes: Memor ia 1-15 Take with l 21:21: food. [place] 00 Albuterol 2018-03 No Notes: Memori a 0.833 MG/ML 1-15 (Same as: l / 21:21: Duoneb) [place] Ipratropium 00 [place] 0.167 MG/ML Inhalant Solution Prednisone 2018-03 No Notes: Memor ia 1-15 Take with l 21:21: food. [place] 00 Albuterol 2018-03 No Notes: Memori a 0.833 MG/ML 1-15 (Same as: l / 21:21: Duoneb) [place] Ipratropium 00 [place] 0.167 MG/ML Inhalant Solution Prednisone 2018-03 No Notes: Memor ia 1-15 Take with l 21:21: food. [place] Albuterol 2018-03 No Notes: Memori a 0.833 MG/ML 1-15 (Same as: l / 21:21: Duoneb) [place] Ipratropium 00 [place] 0.167 MG/ML Inhalant Solution Prednisone 2018-03 No Notes: Memor ia 1-15 Take with l 21:21: food. [place] 00 Albuterol 2018-03 No Notes: Memori a 0.833 MG/ML 1-15 (Same as: l / 21:21: Duoneb) [place] Ipratropium 00 [place] 0.167 MG/ML Inhalant Solution Prednisone 2018-03 No Notes: Memor ia 1-15 Take with l 21:21: food. [place] 00 Albuterol 2018-03 No Notes: Memori a 0.833 MG/ML 1-15 (Same as: l / 21:21: Duoneb) [place] Ipratropium 00 [place] 0.167 MG/ML Inhalant Solution Prednisone 2018-03 No Notes: Memor ia 1-15 Take with l 21:21: food. [place] 00 Albuterol 2018-03 No Notes: Memori a 0.833 MG/ML 1-15 (Same as: l / 21:21: Duoneb) [place] Ipratropium 00 [place] 0.167 MG/ML Inhalant Solution Prednisone 2018-03 No Notes: Memor ia 1-15 Take with l 21:21: food. [place] 00 Saline 2018-03 No Notes: Memoria Flush 0.9% 1-15 (Same as: l 20:25: BD [place] 00 Posiflush) Saline 2018-03 No Notes: [facility]oria Flush 0.9% 1-15 (Same as: l 20:25: BD [place] 00 Posiflush) Saline 2018-03 No Notes: [facility] Flush 0.9% 1-15 (Same as: l 20:25: BD [place] 00 Posiflush) Saline 2018-03 No Notes: [facility] Flush 0.9% 1-15 (Same as: l 20:25: BD [place] 00 Posiflush) Saline 2018-03 No Notes: [facility] Flush 0.9% 1-15 (Same as: l 20:25: BD [place] 00 Posiflush) Saline 2018-03 No Notes: [facility] Flush 0.9% 1-15 (Same as: l 20:25: BD [place] 00 Posiflush) Saline 2018-03 No Notes: [facility] Flush 0.9% 1-15 (Same as: l 20:25: BD [place] 00 Posiflush) baclofen 10 2018-03 2020- No [id number] 10mg Take 1 [facility] mg tablet 03-15 tablet by [facility] of 00:00: 00:00 mouth 3 [place] 00 :00 (three) Medical times Branch daily. lisinopril 2018-03 2020- No [id number] 5mg Take 1 [facility] 5 mg tablet 03-30 tablet by it y of 00:00: 00:00 mouth [place] 00 :00 daily. [facility] allopurinol 2020- No [id number] 100mg Take 1 [facility] 100 mg 11-19 tablet by [facility] of tablet 00:00: 00:00 mouth [place] 00 :00 daily. [facility] atorvastati 2020- No [id number] 20mg Take 1 [facility] n 20 mg 08-01 tablet by [facility] of tablet 00:00: 00:00 mouth at [place] 00 :00 bedtime. [facility] amLODIPine 2020- No [id number] 5mg Take 1 [facility] (NORVASC) 5 08-01 tablet by it y of mg tablet 00:00: 00:00 mouth [place] 00 :00 daily. [facility] methocarbam 2020- No [id number] 500mg Take 1 [facility] ol 500 mg 07-07 tablet by [facility]y of tablet 00:00: 00:00 mouth 3 [place] 00 :00 (three) Medical times Branch daily as needed (muscle spasm/pain ). Lancets 2017- Yes [id number] Use as [facility] vers Misc 0-04 directed ity of 00:00: [place] 00 [facility] Lancets 2017- Yes [id number] Use as [facility] vers Misc 0-04 directed ity of 00:00: [place] 00 [facility] Lancets 2017- Yes [id number] Use as [facility] vers Misc 0-04 directed ity of 00:00: [place] 00 [facility] Lancets 2017- Yes [id number] Use as [facility] vers Misc 0-04 directed ity of 00:00: [place] 00 [facility] Lancets 2017- Yes [id number] Use as [facility] vers Misc 0-04 directed ity of 00:00: [place] 00 [facility] Lancets 2017- Yes [id number] Use as [facility] vers Misc 0-04 directed ity of 00:00: [place] 00 [facility] Lancets 2017- Yes [id number] Use [facility]-04 directed [facility] 00:00: [facility] 2017- Yes [id number] Use as [facility] 0-04 directed [facility]y of 00:00: [facility] 2017- Yes [id number] Use as [facility] M[facility] 0-04 directed [facility]y of 00:00: [facility] 2017- Yes [id number] Use as [facility] M[facility] 0-04 directed [facility]y of 00:00: [facility] 2017- Yes [id number] Use as [facility] 0-04 directed [facility] of 00:00: [facility] 2017- Yes [id number] Use as [facility] 0-04 directed [facility] of 00:00: [facility] 2017- Yes [id number] Use as [facility] 0-04 directed [facility] of 00:00: [facility] 2017- Yes [id number] Use as [facility] Misc 0-04 directed [facility] of 00:00: [facility] 2017- Yes [id number] Use as [facility] M[facility] 0-04 directed [facility] of 00:00: [facility] 2017- Yes [id number] Use as [facility] Misc 0-04 directed [facility] of 00:00: [facility] 2017- Yes [id number] Use as [facility] 0-04 directed [facility] of 00:00: [facility] 2017- Yes [id number] Use as [facility] M[facility] 0-04 directed [facility] of 00:00: [facility] 2017- Yes [id number] Use as [facility] Misc 0-04 directed [facility]y of 00:00: [facility] 2017- Yes [id number] Use as [facility] Misc 0-04 directed ity of 00:00: [facility] 2017- Yes [id number] Use as [facility] Misc 0-04 directed [facility] of 00:00: [facility] 2017-1 Yes [id number] Use as [facility] Misc 0-04 directed [facility] 00[facility]00: [facility] 2017-1 Yes [id number] Use as [facility] Misc 0-04 directed [facility]y of 00:00: [facility] 2017-1 Yes [id number] Use as [facility] Misc 0-04 directed [facility]y of 00:00: [facility] 2017-1 Yes [id number] Use as [facility] Misc 0-04 directed [facility] of 00:00: [facility] 2017-1 Yes [id number] Use as [facility] Misc 0-04 directed [facility] of 00:00: [facility] 2017-1 Yes [id number] Use as [facility] Misc 0-04 directed [facility]y of 00:00: [facility] 2017-1 Yes [id number] Use as [facility] Misc 0-04 directed [facility]y of 00:00: [facility] 2017-1 Yes [id number] Use as [facility] Misc 0-04 directed [facility] of 00:00: [facility] 2017-1 Yes [id number] Use as [facility] Misc 0-04 directed [facility] of 00:00: [facility] 2017-1 Yes [id number] Use as [facility] Misc 0-04 directed [facility] of 00:00: [facility] 2017-1 Yes [id number] Use as [facility] Misc 0-04 directed [facility] of 00:00: [facility] 2017-1 Yes [id number] Use as [facility] Misc 0-04 directed [facility] of 00:00: [facility] 2017-1 Yes [id number] Use as [facility] Misc 0-04 directed [facility]y of 00:00: [facility] 2017-1 Yes [id number] Use as [facility] Misc 0-04 directed [facility] 00:00: [facility] 2017-1 Yes [id number] Use as [facility] Misc 0-04 directed [facility] of 00:00: [facility] 2017-1 Yes [id number] Use as [facility] Misc 0-04 directed [facility] 00:00: [facility] 2017-1 Yes [id number] Use as [facility] Misc 0-04 directed [facility] 00:00: [facility] 2017-1 Yes [id number] Use as [facility] Misc 0-04 directed [facility] of 00:00: [facility] 2017-1 Yes [id number] Use as [facility] Misc 0-04 directed [facility] of 00:00: [facility] 2017-1 Yes [id number] Use as [facility] Misc 0-04 directed [facility] 00:00: [facility] 2017-1 Yes [id number] Use as [facility] Misc 0-04 directed [facility] of 00:00: [facility] 2017-1 Yes [id number] Use as [facility] Misc 0-04 directed [facility]y of 00:00: [facility] 2017-1 Yes [id number] Use as [facility] Misc 0-04 directed [facility]y of 00:00: [facility] 2017-1 Yes [id number] Use as [facility] Misc 0-04 directed ity of 00:00: [facility] 2017-1 Yes [id number] Use as [facility] Misc 0-04 directed ity of 00:00: [facility] 2017-1 Yes [id number] Use as [facility] Misc 0-04 directed [facility]y of 00:00: [facility] 2017-1 Yes [id number] Use as [facility] Misc 0-04 directed [facility] of 00:00: [facility] 2017-1 Yes [id number] Use as [facility] Misc 0-04 directed [facility] of 00:00: [facility] 2017-1 Yes [id number] Use as [facility] Misc 0-04 directed [facility]y of 00:00: [facility] 2017-1 Yes [id number] Use as [facility] Misc 0-04 directed [facility] of 00:00: [facility] 2017-1 Yes [id number] Use as [facility] Misc 0-04 directed [facility] of 00:00: [facility] 2017-1 Yes [id number] Use as [facility] Misc 0-04 directed [facility] 00:00: [facility] 2017-1 Yes [id number] Use as [facility] Misc 0-04 directed [facility] of 00:00: [facility] 2017-1 Yes [id number] Use as [facility] Misc 0-04 directed [facility] of 00:00: [facility] 2017-1 Yes [id number] Use as [facility] Misc 0-04 directed [facility]y of 00:00: [facility] 2017-1 Yes [id number] Use as [facility] Misc 0-04 directed [facility] of 00:00: [facility] 2017-1 Yes [id number] Use as [facility] Misc 0-04 directed ity of 00:00: [facility] 2017-1 Yes [id number] Use as [facility] Misc 0-04 directed ity of 00:00: [facility] 2017-1 Yes [id number] Use as [facility] Misc 0-04 directed ity of 00:00: [facility] 2017-1 Yes [id number] Use as [facility] Misc 0-04 directed ity of 00:00: [facility] 2017-1 Yes [id number] Use as [facility] Misc 0-04 directed ity of 00:00: [facility] 2017-1 Yes [id number] Use as [facility] Misc 0-04 directed ity of 00:00: [facility] 2017-1 Yes [id number] Use as [facility] Misc 0-04 directed ity of 00:00: [facility] 2017-1 Yes [id number] Use as [facility] Misc 0-04 directed [facility]y of 00:00: [facility] 2017-1 Yes [id number] Use as [facility] Misc 0-04 directed [facility]y of 00:00: [facility] 2017-1 Yes [id number] Use as [facility] Misc 0-04 directed [facility] of 00:00: [facility] 2017-1 Yes [id number] Use as [facility] Misc 0-04 directed [facility] of 00:00: [facility] 2017-1 Yes [id number] Use as [facility] Misc 0-04 directed [facility] of 00:00: [facility] 2017-1 Yes [id number] Use as [facility] Misc 0-04 directed [facility] of 00:00: [facility] 2017-1 Yes [id number] Use as [facility] Misc 0-04 directed [facility] of 00:00: [facility] 2017-1 Yes [id number] Use as [facility] Misc 0-04 directed [facility]y of 00:00: [facility] 2017-1 Yes [id number] Use as [facility] Misc 0-04 directed [facility]y of 00:00: [facility] 2017-1 Yes [id number] Use as [facility] Misc 0-04 directed ity of 00:00: [facility] 2017-1 Yes [id number] Use as [facility] Misc 0-04 directed ity of 00:00: [facility] 2017-1 Yes [id number] Use as [facility] Misc 0-04 directed ity of 00:00: [facility] 2017-1 Yes [id number] Use as [facility] Misc 0-04 directed ity of 00:00: [facility] 2017-1 Yes [id number] Use as [facility] Misc 0-04 directed [facility]y of 00:00: [facility] 2017-1 Yes [id number] Use as [facility] Misc 0-04 directed ity of 00:00: [facility] 2017-1 Yes [id number] Use as [facility] Misc 0-04 directed ity of 00:00: [facility] 2017-1 Yes [id number] Use as [facility] Misc 0-04 directed ity of 00:00: [facility] 2017-1 Yes [id number] Use as [facility] Misc 0-04 directed ity of 00:00: [facility] 2017-1 Yes [id number] Use as [facility] Misc 0-04 directed ity of 00:00: [facility] 2017-1 Yes [id number] Use as [facility] Misc 0-04 directed ity of 00:00: [facility] 2017-1 Yes [id number] Use as [facility] Misc 0-04 directed ity of 00:00: [facility] 2017-1 Yes [id number] Use as [facility] Misc 0-04 directed [facility]y of 00:00: [facility] 2017-1 Yes [id number] Use as [facility] Misc 0-04 directed ity of 00:00: [facility] 2017-1 Yes [id number] Use as [facility] Misc 0-04 directed ity of 00:00: [facility] 2017-1 Yes [id number] Use as [facility] Misc 0-04 directed ity of 00:00: [facility] 2017-1 Yes [id number] Use as [facility] Misc 0-04 directed ity of 00:00: [facility] 2017-1 Yes [id number] Use as [facility] Misc 0-04 directed ity of 00:00: [facility] 2017-1 Yes [id number] Use as [facility] Misc 0-04 directed ity of 00:00: [facility] 2017-1 Yes [id number] Use as [facility] Misc 0-04 directed ity of 00:00: [facility] 2017-1 Yes [id number] Use as [facility] Misc 0-04 directed ity of 00:00: [facility] 2017-1 Yes [id number] Use as [facility] Misc 0-04 directed ity of 00:00: [facility] 2017-1 Yes [id number] Use as [facility] Misc 0-04 directed ity of 00:00: [facility] 2017-1 Yes [id number] Use as [facility] Misc 0-04 directed ity of 00:00: [facility] 2017-1 Yes [id number] Use as [facility] Misc 0-04 directed ity of 00:00: [facility] 2017-1 Yes [id number] Use as [facility] Misc 0-04 directed ity of 00:00: [facility] 2017-1 Yes [id number] Use as [facility] Misc 0-04 directed ity of 00:00: [facility] 2017-1 Yes [id number] Use as [facility] Misc 0-04 directed ity of 00:00: [facility] 2017-1 Yes [id number] Use as [facility] Misc 0-04 directed ity of 00:00: [facility] 2017-1 Yes [id number] Use as [facility] Misc 0-04 directed ity of 00:00: [facility] 2017-1 Yes [id number] Use as [facility] Misc 0-04 directed ity of 00:00: [facility] 2017-1 Yes [id number] Use as [facility] Misc 0-04 directed ity of 00:00: [facility] 2017-1 Yes [id number] Use as [facility] Misc 0-04 directed ity of 00:00: [facility] 2017- Yes [id number] Use as [facility] Misc 0-04 directed ity of 00:00: [facility] 2017-1 Yes [id number] Use as [facility] Misc 0-04 directed ity of 00:00: [facility] 2017- Yes [id number] Use as [facility] Misc 0-04 directed ity of 00:00: [facility] 2017-1 Yes [id number] Use as [facility] Misc 0-04 directed ity of 00:00: [facility] 2017- Yes [id number] Use as [facility] Misc 0-04 directed ity of 00:00: [facility] 2017-1 Yes [id number] Use as [facility] Misc 0-04 directed ity of 00:00: [facility] 2017-1 Yes [id number] Use as [facility] Misc 0-04 directed ity of 00:00: [facility] 2017-1 Yes [id number] Use as [facility] Misc 0-04 directed ity of 00:00: [facility] 2017-1 Yes [id number] Use as [facility] Misc 0-04 directed ity of 00:00: [facility] 2017-1 Yes [id number] Use as [facility] Misc 0-04 directed ity of 00:00: [facility] 2017-1 Yes [id number] Use as [facility] Misc 0-04 directed ity of 00:00: [facility] 2017-1 Yes [id number] Use as [facility] Misc 0-04 directed [facility]y of 00:00: [facility] 2017-1 Yes [id number] Use as [facility] Misc 0-04 directed ity of 00:00: [facility] 2017-1 Yes [id number] Use as [facility] Misc 0-04 directed ity of 00:00: [facility] 2017-1 Yes [id number] Use as [facility] Misc 0-04 directed ity of 00:00: [facility] 2017-1 Yes [id number] Use as [facility] Misc 0-04 directed ity of 00:00: [facility] 2017-1 Yes [id number] Use as [facility] Misc 0-04 directed ity of 00:00: [facility] 2017-1 Yes [id number] Use as [facility] Misc 0-04 directed ity of 00:00: [facility] 2017- Yes [id number] Use as [facility] Misc 0-04 directed ity of 00:00: [facility] 2017-1 Yes [id number] Use as [facility] Misc 0-04 directed ity of 00:00: [facility] 2017-1 Yes [id number] Use as [facility] Misc 0-04 directed ity of 00:00: [facility] 2017-1 Yes [id number] Use as [facility] Misc 0-04 directed ity of 00:00: [facility] 2017-1 Yes [id number] Use as [facility] Misc 0-04 directed ity of 00:00: [facility] 2017-1 Yes [id number] Use as [facility] Misc 0-04 directed ity of 00:00: [facility] 2017-1 Yes [id number] Use as [facility] Misc 0-04 directed ity of 00:00: [facility] 2017-1 Yes [id number] Use as [facility] Misc 0-04 directed ity of 00:00: [facility] 2017-1 Yes [id number] Use as [facility] Misc 0-04 directed ity of 00:00: [facility] 2017-1 Yes [id number] Use as [facility] Misc 0-04 directed ity of 00:00: [facility] 2017-1 Yes [id number] Use as [facility] Misc 0-04 directed ity of 00:00: [facility] 2017- Yes [id number] Use as [facility] Misc 0-04 directed ity of 00:00: [facility] 2017- Yes [id number] Use as [facility] Misc 0-04 directed ity of 00:00: [facility] 2017- Yes [id number] Use as [facility] Misc 0-04 directed ity of 00:00: [facility] 2017- Yes [id number] Use as [facility] Misc 0-04 directed ity of 00:00: [facility] 2017- Yes [id number] Use as [facility] Misc 0-04 directed ity of 00:00: [facility] 2017- Yes [id number] Use as [facility] Misc 0-04 directed ity of 00:00: [facility] 2017- Yes [id number] Use as [facility] Misc 0-04 directed ity of 00:00: [facility] 2017- Yes [id number] Use as [facility] Misc 0-04 directed ity of 00:00: [facility] 2017- Yes [id number] Use as [facility] Misc 0-04 directed ity of 00:00: [facility] 2017- Yes [id number] Use as [facility] Misc 0-04 directed ity of 00:00: [facility] 2017- Yes [id number] Use as [facility] Misc 0-04 directed ity of 00:00: [facility] 2017- Yes [id number] Use as [facility] Misc 0-04 directed ity of 00:00: [facility] 2017- Yes [id number] Use as [facility] Misc 0-04 directed ity of 00:00: [facility] 2017- Yes [id number] Use as Uni vers Misc 0-04 directed [...] 7-20 Rate: 25 l 0.154 13:42: ml/hr, [place] MEQ/ML 00 Infuse Injectable over: 40 Solution hr, Route: IV, Dosing Weight 89.205 kg, Total Volume: 1,000, Start date: 09/21/15 8:42:00 CDT, Duration: 1 day, Stop date: 09/22/15 8:41:00 CDT Sodium 2016-0 No 1,000 mL, Mem[facility] a Chloride 7-20 Rate: 25 l 0.154 13:42: ml/hr, [place] MEQ/ML 00 Infuse Injectable over: 40 Solution [...] 7-20 Rate: 25 l 0.154 13:42: ml/hr, [place] MEQ/ML 00 Infuse Injectable over: 40 Solution [...] tab, PO, l tablet 13:07: Daily, # [place] 00 30 tab, 0 Refill(s) lisinopril 2016-0 [...] 30 tab, 0 Refill(s) Immunizations Ordered Filled Date Status Comments Source Immunization Name Immunization Name Influenza Virus 2021-12-06 [facility]pleted [facility] ([facility] Influenza Virus 2021-12-06 Completed [facility] Vaccine,quad 00:[facility]+ (FLUAD) Influenza Virus 2021-12-06 Completed [facility] Vaccine,quad 00:00:00 [facility]+ (FLUAD) Influenza Virus 2021-12-06 Completed [facility] Vaccine,quad 00:00:00 [facility]+ (FLUAD) Influenza Virus 2021-12-06 Completed [facility] Vaccine,quad 00:00:00 [facility]+ (FLUAD) Influenza Virus 2021-12-06 Completed [facility] Vaccine,quad 00:00:00 [facility]+ (FLUAD) Influenza Virus 2021-12-06 Completed [facility] Vaccine,quad 00:00:00 [facility]+ (FLUAD) Influenza Virus 2021-12-06 Completed [facility] Vaccine,quad 00:00:00 [facility]+ (FLUAD) Influenza Virus 2021-12-06 Completed [facility] Vaccine,quad 00:00:00 [facility]+ (FLUAD) Influenza Virus 2021-12-06 Completed [facility] Vaccine,quad 00:00:00 [facility]+ (FLUAD) Influenza Virus 2021-12-06 Completed [facility] Vaccine,quad 00:00:00 [facility]+ (FLUAD) Influenza Virus 2021-12-06 Completed [facility] Vaccine,quad 00:00:00 [facility]+ (FLUAD) Influenza Virus 2021-12-06 Completed [facility] Vaccine,quad 00:00:00 [facility]+ (FLUAD) Influenza Virus 2021-12-06 Completed [facility] Vaccine,quad 00:00:00 [facility]+ (FLUAD) Influenza Virus 2021-12-06 Completed [facility] Vaccine,quad 00:00:00 [facility]+ (FLUAD) Influenza Virus 2021-12-06 Completed [facility] Vaccine,quad 00:00:00 [facility]+ (FLUAD) Influenza Virus 2021-12-06 Completed [facility] Vaccine,quad 00:00:00 [facility]+ (FLUAD) Influenza Virus 2021-12-06 Completed [facility] Vaccine,quad 00:00:00 [facility]+ (FLUAD) Influenza Virus 2021-12-06 Completed [facility] Vaccine,quad 00:00:00 [facility]+ (FLUAD) SARS-COV-2 COVID-19 2020-04-28 Completed [facility] PFIZER VACCINE 00:00:00 [facility] SARS-COV-2 COVID-19 2020-04-28 Completed [facility] of PFIZER VACCINE 00:00:00 [facility] SARS-COV-2 COVID-19 2020-04-28 Completed [facility] of PFIZER VACCINE 00:00:00 [facility] SARS-COV-2 COVID-19 2020-04-28 Completed [facility] of PFIZER VACCINE 00:00:00 [facility] SARS-COV-2 COVID-19 2020-04-28 Completed [facility] of PFIZER VACCINE 00:00:00 [facility] SARS-COV-2 COVID-19 2020-04-28 Completed [facility] of PFIZER VACCINE 00:00:00 [facility] SARS-COV-2 COVID-19 2020-04-28 Completed [facility] of PFIZER VACCINE 00:00:00 [facility] SARS-COV-2 COVID-19 2020-04-28 Completed [facility] of PFIZER VACCINE 00:00:00 [facility] SARS-COV-2 COVID-19 2020-04-28 Completed [facility] of PFIZER VACCINE 00:00:00 [facility] SARS-COV-2 COVID-19 2020-04-28 Completed [facility] PFIZER VACCINE 00:00:00 [facility] SARS-COV-2 COVID-19 2020-04-28 Completed [facility] PFIZER VACCINE 00:00:00 [facility] SARS-COV-2 COVID-19 2020-04-28 Completed [facility] of PFIZER VACCINE 00:00:00 [facility] SARS-COV-2 COVID-19 2020-04-28 Completed [facility] of PFIZER VACCINE 00:00:00 [facility] SARS-COV-2 COVID-19 2020-04-28 Completed [facility] PFIZER VACCINE 00:00:00 [facility] SARS-COV-2 COVID-19 2020-04-28 Completed [facility] PFIZER VACCINE 00:00:00 [facility] SARS-COV-2 COVID-19 2020-04-28 Completed [facility] PFIZER VACCINE 00:00:00 [facility] SARS-COV-2 COVID-19 2020-04-28 Completed [facility] PFIZER VACCINE 00:00:00 [facility] SARS-COV-2 COVID-19 2020-04-28 Completed [facility] of PFIZER VACCINE 00:00:00 [facility] SARS-COV-2 COVID-19 2020-04-28 Completed [facility] PFIZER VACCINE 00:00:00 [facility] SARS-COV-2 COVID-19 2020-04-28 Completed [facility] PFIZER VACCINE 00:00:00 [facility] SARS-COV-2 COVID-19 2020-04-28 Completed [facility] PFIZER VACCINE 00:00:00 [facility] SARS-COV-2 COVID-19 2020-04-28 Completed [facility] of PFIZER VACCINE 00:00:00 [facility] SARS-COV-2 COVID-19 2020-04-28 Completed [facility] of PFIZER VACCINE 00:00:00 [facility] SARS-COV-2 COVID-19 2020-04-28 Completed [facility] of PFIZER VACCINE 00:00:00 [facility] SARS-COV-2 COVID-19 2020-04-28 Completed [facility] of PFIZER VACCINE 00:00:00 [facility] SARS-COV-2 COVID-19 2020-04-28 Completed [facility] PFIZER VACCINE 00:00:00 [facility] SARS-COV-2 COVID-19 2020-04-28 Completed [facility] PFIZER VACCINE 00:00:00 [facility] SARS-COV-2 COVID-19 2020-04-28 Completed [facility] PFIZER VACCINE 00:00:00 [facility] SARS-COV-2 COVID-19 2020-04-28 Completed [facility] PFIZER VACCINE 00:00:00 [facility] SARS-COV-2 COVID-19 2020-04-28 Completed [facility] PFIZER VACCINE 00:00:00 [facility] SARS-COV-2 COVID-19 2020-04-28 Completed [facility] PFIZER VACCINE 00:00:00 [facility] SARS-COV-2 COVID-19 2020-04-28 Completed [facility] PFIZER VACCINE 00:00:00 [facility] SARS-COV-2 COVID-19 2020-04-28 Completed [facility] PFIZER VACCINE 00:00:00 [facility] SARS-COV-2 COVID-19 2020-04-28 Completed [facility] PFIZER VACCINE 00:00:00 [facility] SARS-COV-2 COVID-19 2020-04-28 Completed [facility] PFIZER VACCINE 00:00:00 [facility] SARS-COV-2 COVID-19 2020-04-28 Completed [facility] PFIZER VACCINE 00:00:00 [facility] SARS-COV-2 COVID-19 2020-04-28 Completed [facility] PFIZER VACCINE 00:00:00 [facility] SARS-COV-2 COVID-19 2020-04-28 Completed [facility] of PFIZER VACCINE 00:00:00 [facility] SARS-COV-2 COVID-19 2020-04-28 Completed [facility] PFIZER VACCINE 00:00:00 [facility] SARS-COV-2 COVID-19 2020-04-28 Completed [facility] PFIZER VACCINE 00:00:00 [facility] SARS-COV-2 COVID-19 2020-04-28 Completed [facility] PFIZER VACCINE 00:00:00 [facility] SARS-COV-2 COVID-19 2020-04-28 Completed [facility] PFIZER VACCINE 00:00:00 [facility] SARS-COV-2 COVID-19 2020-04-28 Completed [facility] PFIZER VACCINE 00:00:00 [facility] SARS-COV-2 COVID-19 2020-04-28 Completed [facility] PFIZER VACCINE 00:00:00 [facility] SARS-COV-2 COVID-19 2020-04-28 Completed [facility] PFIZER VACCINE 00:00:00 [facility] SARS-COV-2 COVID-19 2020-04-28 Completed [facility] PFIZER VACCINE 00:00:00 [facility] SARS-COV-2 COVID-19 2020-04-28 Completed [facility] PFIZER VACCINE 00:00:00 [facility] SARS-COV-2 COVID-19 2020-04-28 Completed [facility] PFIZER VACCINE 00:00:00 [facility] SARS-COV-2 COVID-19 2020-04-28 Completed [facility] PFIZER VACCINE 00:00:00 [facility] SARS-COV-2 COVID-19 2020-04-28 Completed [facility] PFIZER VACCINE 00:00:00 [facility] SARS-COV-2 COVID-19 2020-04-28 Completed [facility] PFIZER VACCINE 00:00:00 [facility] SARS-COV-2 COVID-19 2020-04-28 Completed [facility] PFIZER VACCINE 00:00:00 [facility] SARS-COV-2 COVID-19 2020-04-28 Completed [facility] PFIZER VACCINE 00:00:00 [facility] SARS-COV-2 COVID-19 2020-04-28 Completed [facility] PFIZER VACCINE 00:00:00 [facility] SARS-COV-2 COVID-19 2020-04-28 Completed [facility] PFIZER VACCINE 00:00:00 [facility] SARS-COV-2 COVID-19 2020-04-28 Completed [facility] PFIZER VACCINE 00:00:00 [facility] SARS-COV-2 COVID-19 2020-04-28 Completed [facility] PFIZER VACCINE 00:00:00 [facility] SARS-COV-2 COVID-19 2020-04-28 Completed [facility] PFIZER VACCINE 00:00:00 [facility] SARS-COV-2 COVID-19 2020-04-28 Completed [facility] PFIZER VACCINE [facility] [facility] SARS-COV-2 COVID-19 2020-04-28 Completed [facility] VACCINE 00:00:00 [facility] SARS-COV-2 COVID-19 2020-04-28 Completed [facility]ZER VACCINE 00:00:00 [facility] SARS-COV-2 COVID-19 2020-04-28 Completed [facility]FIZER VACCINE 00:00:00 [facility] SARS-COV-2 COVID-19 2020-04-28 Completed [facility] PFIZER VACCINE 00:00:00 [facility] SARS-COV-2 COVID-19 2020-04-28 Completed [facility] PFIZER VACCINE 00:00:00 [facility] SARS-COV-2 COVID-19 2020-04-28 Completed [facility] PFIZER VACCINE 00:00:00 [facility] SARS-COV-2 COVID-19 2020-04-28 Completed [facility] PFIZER VACCINE 00:00:00 [facility] SARS-COV-2 COVID-19 2020-04-28 Completed [facility]ACCINE 00:00:00 [facility] SARS-COV-2 COVID-19 2020-04-28 Completed [facility] PFIZER VACCINE 00:00:00 [facility] SARS-COV-2 COVID-19 2020-04-28 Completed [facility] PFIZER VACCINE 00:00:00 [facility] SARS-COV-2 COVID-19 2020-04-28 Completed [facility] PFIZER VACCINE 00:00:00 [facility] SARS-COV-2 COVID-19 2020-04-28 Completed [facility] PFIZER VACCINE 00:00:00 [facility] SARS-COV-2 COVID-19 2020-04-28 Completed [facility] PFIZER VACCINE 00:00:00 [facility] SARS-COV-2 COVID-19 2020-04-28 Completed [facility] PFIZER VACCINE 00:00:00 [facility] SARS-COV-2 COVID-19 2020-04-28 Completed [facility] PFIZER VACCINE 00:00:00 [facility] SARS-COV-2 COVID-19 2020-04-28 Completed [facility] PFIZER VACCINE 00:00:00 [facility] SARS-COV-2 COVID-19 2020-04-28 Completed [facility] PFIZER VACCINE 00:00:00 [facility] SARS-COV-2 COVID-19 2020-04-28 Completed [facility] PFIZER VACCINE 00:00:00 [facility] SARS-COV-2 COVID-19 2020-04-28 Completed [facility] PFIZER VACCINE 00:00:00 [facility] SARS-COV-2 COVID-19 2020-04-28 Completed [facility] PFIZER VACCINE 00:00:00 [facility] SARS-COV-2 COVID-19 2020-04-28 Completed [facility] PFIZER VACCINE 00:00:00 [facility] SARS-COV-2 COVID-19 2020-04-28 Completed [facility] PFIZER VACCINE 00:00:00 [facility] SARS-COV-2 COVID-19 2020-04-28 Completed [facility] PFIZER VACCINE 00:00:00 [facility] SARS-COV-2 COVID-19 2020-04-28 Completed [facility] PFIZER VACCINE 00:00:00 [facility] SARS-COV-2 COVID-19 2020-04-28 Completed [facility] PFIZER VACCINE 00:00:00 [facility] SARS-COV-2 COVID-19 2020-04-28 Completed [facility] PFIZER VACCINE 00:00:00 [facility] SARS-COV-2 COVID-19 2020-04-28 Completed [facility] PFIZER VACCINE 00:00:00 [facility] SARS-COV-2 COVID-19 2020-04-28 Completed [facility] PFIZER VACCINE 00:00:00 [facility] SARS-COV-2 COVID-19 2020-04-28 Completed [facility] PFIZER VACCINE 00:00:00 [facility] SARS-COV-2 COVID-19 2020-04-28 Completed [facility] PFIZER VACCINE 00:00:00 [facility] SARS-COV-2 COVID-19 2020-04-28 Completed [facility] PFIZER VACCINE 00:00:00 [facility] SARS-COV-2 COVID-19 2020-04-28 Completed [facility] PFIZER VACCINE 00:00:00 [facility] SARS-COV-2 COVID-19 2020-04-28 Completed [facility] PFIZER VACCINE 00:00:00 [facility] SARS-COV-2 COVID-19 2020-04-28 Completed [facility] PFIZER VACCINE 00:00:00 [facility] SARS-COV-2 COVID-19 2020-04-28 Completed [facility] PFIZER VACCINE 00:00:00 [facility] SARS-COV-2 COVID-19 2020-04-28 Completed [facility] PFIZER VACCINE 00:00:00 [facility] SARS-COV-2 COVID-19 2020-04-28 Completed [facility] PFIZER VACCINE 00:00:00 [facility] SARS-COV-2 COVID-19 2020-04-28 Completed [facility] PFIZER VACCINE 00:00:00 [facility] SARS-COV-2 COVID-19 2020-04-28 Completed [facility] PFIZER VACCINE 00:00:00 [facility] SARS-COV-2 COVID-19 2020-04-28 Completed [facility] PFIZER VACCINE 00:00:00 [facility] SARS-COV-2 COVID-19 2020-04-28 Completed [facility] PFIZER VACCINE 00:00:00 [facility] SARS-COV-2 COVID-19 2020-04-28 Completed [facility] PFIZER VACCINE 00:00:00 [facility] SARS-COV-2 COVID-19 2020-04-28 Completed [facility]ACCINE 00:00:00 [facility] SARS-COV-2 COVID-19 2020-04-28 Completed [facility] PFIZER VACCINE 00:00:00 [facility] SARS-COV-2 COVID-19 2020-04-28 Completed [facility] PFIZER VACCINE 00:00:00 [facility] SARS-COV-2 COVID-19 2020-04-28 Completed [facility] PFIZER VACCINE 00:00:00 [facility] SARS-COV-2 COVID-19 2020-04-28 Completed [facility] PFIZER VACCINE 00:00:00 [facility] SARS-COV-2 COVID-19 2020-04-28 Completed [facility] PFIZER VACCINE 00:00:00 [facility] SARS-COV-2 COVID-19 2020-04-28 Completed [facility] PFIZER VACCINE 00:00:00 [facility] SARS-COV-2 COVID-19 2020-04-28 Completed [facility] PFIZER VACCINE 00:00:00 [facility] SARS-COV-2 COVID-19 2020-04-28 Completed [facility] PFIZER VACCINE 00:00:00 [facility] SARS-COV-2 COVID-19 2020-04-28 Completed [facility] PFIZER VACCINE 00:00:00 [facility] SARS-COV-2 COVID-19 2020-04-28 Completed [facility] PFIZER VACCINE 00:00:00 [facility] SARS-COV-2 COVID-19 2020-04-28 Completed [facility] PFIZER VACCINE 00:00:00 [facility] SARS-COV-2 COVID-19 2020-04-28 Completed [facility] PFIZER VACCINE 00:00:00 [facility] SARS-COV-2 COVID-19 2020-04-28 Completed [facility] PFIZER VACCINE 00:00:00 [facility] SARS-COV-2 COVID-19 2020-04-28 Completed [facility] PFIZER VACCINE 00:00:00 [facility] SARS-COV-2 COVID-19 2020-04-28 Completed [facility] PFIZER VACCINE 00:00:00 [facility] SARS-COV-2 COVID-19 2020-04-28 Completed [facility] PFIZER VACCINE 00:00:00 [facility] SARS-COV-2 COVID-19 2020-04-03 Completed [facility] PFIZER VACCINE 00:00:00 [facility] SARS-COV-2 COVID-19 2020-04-03 Completed [facility] PFIZER VACCINE 00:00:00 [facility] SARS-COV-2 COVID-19 2020-04-03 Completed [facility] PFIZER VACCINE 00:00:00 [facility] SARS-COV-2 COVID-19 2020-04-03 Completed [facility] PFIZER VACCINE 00:00:00 [facility] SARS-COV-2 COVID-19 2020-04-03 Completed [facility] PFIZER VACCINE 00:00:00 [facility] SARS-COV-2 COVID-19 2020-04-03 Completed [facility] PFIZER VACCINE 00:00:00 [facility] SARS-COV-2 COVID-19 2020-04-03 Completed [facility] PFIZER VACCINE 00:00:00 [facility] SARS-COV-2 COVID-19 2020-04-03 Completed [facility] PFIZER VACCINE 00:00:00 [facility] SARS-COV-2 COVID-19 2020-04-03 Completed [facility] PFIZER VACCINE 00:00:00 [facility] SARS-COV-2 COVID-19 2020-04-03 Completed [facility] PFIZER VACCINE 00:00:00 [facility] SARS-COV-2 COVID-19 2020-04-03 Completed [facility] PFIZER VACCINE 00:00:00 [facility] SARS-COV-2 COVID-19 2020-04-03 Completed [facility] PFIZER VACCINE 00:00:00 [facility] SARS-COV-2 COVID-19 2020-04-03 Completed [facility] PFIZER VACCINE 00:00:00 [facility] SARS-COV-2 COVID-19 2020-04-03 Completed [facility] PFIZER VACCINE 00:00:00 [facility] SARS-COV-2 COVID-19 2020-04-03 Completed [facility] PFIZER VACCINE 00:00:00 [facility] SARS-COV-2 COVID-19 2020-04-03 Completed [facility] PFIZER VACCINE 00:00:00 [facility] SARS-COV-2 COVID-19 2020-04-03 Completed [facility] PFIZER VACCINE 00:00:00 [facility] SARS-COV-2 COVID-19 2020-04-03 Completed [facility] PFIZER VACCINE 00:00:00 [facility] SARS-COV-2 COVID-19 2020-04-03 Completed [facility] PFIZER VACCINE 00:00:00 [facility] SARS-COV-2 COVID-19 2020-04-03 Completed [facility] PFIZER VACCINE 00:00:00 [facility] SARS-COV-2 COVID-19 2020-04-03 Completed [facility] PFIZER VACCINE 00:00:00 [facility] SARS-COV-2 COVID-19 2020-04-03 Completed [facility] PFIZER VACCINE 00:00:00 [facility] SARS-COV-2 COVID-19 2020-04-03 Completed [facility] PFIZER VACCINE 00:00:00 [facility] SARS-COV-2 COVID-19 2020-04-03 Completed [facility] PFIZER VACCINE 00:00:00 [facility] SARS-COV-2 COVID-19 2020-04-03 Completed [facility] PFIZER VACCINE 00:00:00 [facility] SARS-COV-2 COVID-19 2020-04-03 Completed [facility] PFIZER VACCINE 00:00:00 [facility] SARS-COV-2 COVID-19 2020-04-03 Completed [facility] PFIZER VACCINE 00:00:00 [facility] SARS-COV-2 COVID-19 2020-04-03 Completed [facility] PFIZER VACCINE 00:00:00 [facility] SARS-COV-2 COVID-19 2020-04-03 Completed [facility] PFIZER VACCINE 00:00:00 [facility] SARS-COV-2 COVID-19 2020-04-03 Completed [facility] PFIZER VACCINE 00:00:00 [facility] SARS-COV-2 COVID-19 2020-04-03 Completed [facility] PFIZER VACCINE 00:00:00 [facility] SARS-COV-2 COVID-19 2020-04-03 Completed [facility] PFIZER VACCINE 00:00:00 [facility] SARS-COV-2 COVID-19 2020-04-03 Completed [facility] PFIZER VACCINE 00:00:00 [facility] SARS-COV-2 COVID-19 2020-04-03 Completed [facility] PFIZER VACCINE 00:00:00 [facility] SARS-COV-2 COVID-19 2020-04-03 Completed [facility] PFIZER VACCINE 00:00:00 [facility] SARS-COV-2 COVID-19 2020-04-03 Completed [facility] PFIZER VACCINE 00:00:00 [facility] SARS-COV-2 COVID-19 2020-04-03 Completed [facility] PFIZER VACCINE 00:00:00 [facility] SARS-COV-2 COVID-19 2020-04-03 Completed [facility] PFIZER VACCINE 00:00:00 [facility] SARS-COV-2 COVID-19 2020-04-03 Completed [facility] PFIZER VACCINE 00:00:00 [facility] SARS-COV-2 COVID-19 2020-04-03 Completed [facility] PFIZER VACCINE 00:00:00 [facility] SARS-COV-2 COVID-19 2020-04-03 Completed [facility] PFIZER VACCINE 00:00:00 [facility] SARS-COV-2 COVID-19 2020-04-03 Completed [facility] PFIZER VACCINE 00:00:00 [facility] SARS-COV-2 COVID-19 2020-04-03 Completed [facility] PFIZER VACCINE 00:00:00 [facility] SARS-COV-2 COVID-19 2020-04-03 Completed [facility] PFIZER VACCINE 00:00:00 [facility] SARS-COV-2 COVID-19 2020-04-03 Completed [facility] PFIZER VACCINE 00:00:00 [facility] SARS-COV-2 COVID-19 2020-04-03 Completed [facility] PFIZER VACCINE 00:00:00 [facility] SARS-COV-2 COVID-19 2020-04-03 Completed [facility] PFIZER VACCINE 00:00:00 [facility] SARS-COV-2 COVID-19 2020-04-03 Completed [facility] PFIZER VACCINE 00:00:00 [facility] SARS-COV-2 COVID-19 2020-04-03 Completed [facility] PFIZER VACCINE 00:00:00 [facility] SARS-COV-2 COVID-19 2020-04-03 Completed [facility] PFIZER VACCINE 00:00:00 [facility] SARS-COV-2 COVID-19 2020-04-03 Completed [facility] PFIZER VACCINE 00:00:00 [facility] SARS-COV-2 COVID-19 2020-04-03 Completed [facility] PFIZER VACCINE 00:00:00 [facility] SARS-COV-2 COVID-19 2020-04-03 Completed [facility] PFIZER VACCINE 00:00:00 [facility] SARS-COV-2 COVID-19 2020-04-03 Completed [facility] PFIZER VACCINE 00:00:00 [facility] SARS-COV-2 COVID-19 2020-04-03 Completed [facility] PFIZER VACCINE 00:00:00 [facility] SARS-COV-2 COVID-19 2020-04-03 Completed [facility] PFIZER VACCINE 00:00:00 [facility] SARS-COV-2 COVID-19 2020-04-03 Completed [facility] PFIZER VACCINE 00:00:00 [facility] SARS-COV-2 COVID-19 2020-04-03 Completed [facility] PFIZER VACCINE 00:00:00 [facility] SARS-COV-2 COVID-19 2020-04-03 Completed [facility] PFIZER VACCINE 00:00:00 [facility] SARS-COV-2 COVID-19 2020-04-03 Completed [facility] PFIZER VACCINE 00:00:00 [facility] SARS-COV-2 COVID-19 2020-04-03 Completed [facility] PFIZER VACCINE 00:00:00 [facility] SARS-COV-2 COVID-19 2020-04-03 Completed [facility] PFIZER VACCINE 00:00:00 [facility] SARS-COV-2 COVID-19 2020-04-03 Completed [facility] PFIZER VACCINE 00:00:00 [facility] SARS-COV-2 COVID-19 2020-04-03 Completed [facility] PFIZER VACCINE 00:00:00 [facility] SARS-COV-2 COVID-19 2020-04-03 Completed [facility] PFIZER VACCINE 00:00:00 [facility] SARS-COV-2 COVID-19 2020-04-03 Completed [facility] PFIZER VACCINE 00:00:00 [facility] SARS-COV-2 COVID-19 2020-04-03 Completed [facility] PFIZER VACCINE 00:00:00 [facility] SARS-COV-2 COVID-19 2020-04-03 Completed [facility] PFIZER VACCINE 00:00:00 [facility] SARS-COV-2 COVID-19 2020-04-03 Completed [facility] PFIZER VACCINE 00:00:00 [facility] SARS-COV-2 COVID-19 2020-04-03 Completed [facility] PFIZER VACCINE 00:00:00 [facility] SARS-COV-2 COVID-19 2020-04-03 Completed [facility] PFIZER VACCINE 00:00:00 [facility] SARS-COV-2 COVID-19 2020-04-03 Completed [facility] PFIZER VACCINE 00:00:00 [facility] SARS-COV-2 COVID-19 2020-04-03 Completed [facility] PFIZER VACCINE 00:00:00 [facility] SARS-COV-2 COVID-19 2020-04-03 Completed [facility]FIZER VACCINE 00:00:00 [facility] SARS-COV-2 COVID-19 2020-04-03 Completed [facility] PFIZER VACCINE 00:00:00 [facility] SARS-COV-2 COVID-19 2020-04-03 Completed [facility] PFIZER VACCINE 00:00:00 [facility] SARS-COV-2 COVID-19 2020-04-03 Completed [facility] PFIZER VACCINE 00:00:00 [facility] SARS-COV-2 COVID-19 2020-04-03 Completed [facility] PFIZER VACCINE 00:00:00 [facility] SARS-COV-2 COVID-19 2020-04-03 Completed [facility] PFIZER VACCINE 00:00:00 [facility] SARS-COV-2 COVID-19 2020-04-03 Completed [facility] PFIZER VACCINE 00:00:00 [facility] SARS-COV-2 COVID-19 2020-04-03 Completed [facility] PFIZER VACCINE 00:00:00 [facility] SARS-COV-2 COVID-19 2020-04-03 Completed [facility] PFIZER VACCINE 00:00:00 [facility] SARS-COV-2 COVID-19 2020-04-03 Completed [facility] PFIZER VACCINE 00:00:00 [facility] SARS-COV-2 COVID-19 2020-04-03 Completed [facility] PFIZER VACCINE 00:00:00 [facility] SARS-COV-2 COVID-19 2020-04-03 Completed [facility] PFIZER VACCINE 00:00:00 [facility] SARS-COV-2 COVID-19 2020-04-03 Completed [facility] PFIZER VACCINE 00:00:00 [facility] SARS-COV-2 COVID-19 2020-04-03 Completed [facility] PFIZER VACCINE 00:00:00 [facility] SARS-COV-2 COVID-19 2020-04-03 Completed [facility] PFIZER VACCINE 00:00:00 [facility] SARS-COV-2 COVID-19 2020-04-03 Completed [facility] PFIZER VACCINE 00:00:00 [facility] SARS-COV-2 COVID-19 2020-04-03 Completed [facility] PFIZER VACCINE 00:00:00 [facility] SARS-COV-2 COVID-19 2020-04-03 Completed [facility] PFIZER VACCINE 00:00:00 [facility] SARS-COV-2 COVID-19 2020-04-03 Completed [facility] PFIZER VACCINE 00:00:00 [facility] SARS-COV-2 COVID-19 2020-04-03 Completed [facility] PFIZER VACCINE 00:00:00 [facility] SARS-COV-2 COVID-19 2020-04-03 Completed [facility] PFIZER VACCINE 00:00:00 [facility] SARS-COV-2 COVID-19 2020-04-03 Completed [facility] PFIZER VACCINE 00:00:00 [facility] SARS-COV-2 COVID-19 2020-04-03 Completed [facility] PFIZER VACCINE 00:00:00 [facility] SARS-COV-2 COVID-19 2020-04-03 Completed [facility] PFIZER VACCINE 00:00:00 [facility] SARS-COV-2 COVID-19 2020-04-03 Completed [facility] PFIZER VACCINE 00:00:00 [facility] SARS-COV-2 COVID-19 2020-04-03 Completed [facility] PFIZER VACCINE 00:00:00 [facility] SARS-COV-2 COVID-19 2020-04-03 Completed [facility] PFIZER VACCINE 00:00:00 [facility] SARS-COV-2 COVID-19 2020-04-03 Completed [facility] PFIZER VACCINE 00:00:00 [facility] SARS-COV-2 COVID-19 2020-04-03 Completed [facility] PFIZER VACCINE 00:00:00 [facility] SARS-COV-2 COVID-19 2020-04-03 Completed [facility] PFIZER VACCINE 00:00:00 [facility] SARS-COV-2 COVID-19 2020-04-03 Completed [facility] PFIZER VACCINE 00:00:00 [facility] SARS-COV-2 COVID-19 2020-04-03 Completed [facility] PFIZER VACCINE 00:00:00 [facility] SARS-COV-2 COVID-19 2020-04-03 Completed [facility] PFIZER VACCINE 00:00:00 [facility] SARS-COV-2 COVID-19 2020-04-03 Completed [facility] PFIZER VACCINE 00:00:00 [facility] SARS-COV-2 COVID-19 2020-04-03 Completed [facility] PFIZER VACCINE 00:00:00 [facility] SARS-COV-2 COVID-19 2020-04-03 Completed [facility] PFIZER VACCINE 00:00:00 [facility] SARS-COV-2 COVID-19 2020-04-03 Completed [facility] PFIZER VACCINE 00:00:00 [facility] SARS-COV-2 COVID-19 2020-04-03 Completed [facility] PFIZER VACCINE 00:00:00 [facility] SARS-COV-2 COVID-19 2020-04-03 Completed [facility] PFIZER VACCINE 00:00:00 [facility] SARS-COV-2 COVID-19 2020-04-03 Completed [facility] PFIZER VACCINE 00:00:00 [facility] SARS-COV-2 COVID-19 2020-04-03 Completed [facility] PFIZER VACCINE 00:00:00 [facility] SARS-COV-2 COVID-19 2020-04-03 Completed [facility] PFIZER VACCINE 00:00:00 [facility] SARS-COV-2 COVID-19 2020-04-03 Completed [facility] PFIZER VACCINE 00:00:00 [facility] SARS-COV-2 COVID-19 2020-04-03 Completed [facility] PFIZER VACCINE 00:00:00 [facility] SARS-COV-2 COVID-19 2020-04-03 Completed [facility] PFIZER VACCINE 00:00:00 [facility] Influenza High Dose 2019-11-24 Completed [facility] [place] 00:00:00 [facility] Influenza Virus 2019-11-24 Completed [facility] 00:00:00 [facility] Influenza High Dose 2019-11-24 Completed [facility] 00:00:00 [facility] Influenza Virus 2019-11-24 Completed [facility] Vaccine 00:00:00 [facility] Influenza High Dose 2019-11-24 Completed [facility] 00:00:00 [facility] Influenza Virus 2019-11-24 Completed [facility] Vaccine 00:00:00 [facility] Influenza High Dose 2019-11-24 Completed [facility] 00:00:00 [facility] Influenza Virus 2019-11-24 Completed [facility]ine 00:00:00 [facility] Influenza High Dose 2019-11-24 Completed [facility] 00:00:00 [facility] Influenza Virus 2019-11-24 Completed [facility] Vaccine 00:00:00 [facility] Influenza High Dose 2019-11-24 Completed [facility] 00:00:00 [facility] Influenza Virus 2019-11-24 Completed [facility] Vaccine 00:00:00 [facility] Influenza High Dose 2019-11-24 Completed [facility] 00:00:00 [facility] Influenza Virus 2019-11-24 Completed [facility] Vaccine 00:00:00 [facility] Influenza High Dose 2019-11-24 Completed [facility] 00:00:00 [facility] Influenza Virus 2019-11-24 Completed [facility] Vaccine 00:00:00 [facility] Influenza High Dose 2019-11-24 Completed [facility] 00:00:00 [facility] Influenza Virus 2019-11-24 Completed [facility]ine 00:00:00 [facility] Influenza High Dose 2019-11-24 Completed [facility] 00:00:00 [facility] Influenza Virus 2019-11-24 Completed [facility] Vaccine 00:00:00 [facility] Influenza High Dose 2019-11-24 Completed [facility] [place] 00:00:00 [facility] Influenza Virus 2019-11-24 Completed [facility] Vaccine 00:00:00 [facility] Influenza High Dose 2019-11-24 Completed [facility] 00:00:00 [facility] Influenza Virus 2019-11-24 Completed [facility] Vaccine 00:00:00 [facility] Influenza High Dose 2019-11-24 Completed [facility] 00:00:00 [facility] Influenza Virus 2019-11-24 Completed [facility] Vaccine 00:00:00 [facility] Influenza High Dose 2019-11-24 Completed [facility] 00:00:00 [facility] Influenza Virus 2019-11-24 Completed [facility]ine 00:00:00 [facility] Influenza High Dose 2019-11-24 Completed [facility] 00:00:00 [facility] Influenza Virus 2019-11-24 Completed [facility]ine 00:00:00 [facility] Influenza High Dose 2019-11-24 Completed [facility] 00:00:00 [facility] Influenza Virus 2019-11-24 Completed [facility]ine 00:00:00 [facility] Influenza High Dose 2019-11-24 Completed [facility] 00:00:00 [facility] Influenza Virus 2019-11-24 Completed [facility] [facility] D[facility] 2019[facility]-24 Com[facility]00 [facility] Influenza Virus 2019-11-24 Completed [facility]00 [facility] Influenza High Dose 2019-11-24 Completed [facility] 00:00:00 [facility] Influenza Virus 2019-11-24 Completed [facility] 00:00:00 [facility] Influenza High Dose 2019-11-24 Completed [facility] 00:00:00 [facility] Influenza Virus 2019-11-24 Completed [facility]ine 00:00:00 [facility] Influenza High Dose 2019-11-24 Completed [facility] 00:00:00 [facility] Influenza Virus 2019-11-24 Completed [facility] 00:00:00 [facility] Influenza High Dose 2019-11-24 Completed [facility] 00:00:00 [facility] Influenza Virus 2019-11-24 Completed [facility]ine 00:00:00 [facility] Influenza High Dose 2019-11-24 Completed [facility] 00:00:00 [facility] Influenza Virus 2019-11-24 Completed [facility]ine 00:00:00 [facility] Influenza High Dose 2019-11-24 Completed [facility] 00:00:00 [facility] Influenza Virus 2019-11-24 Completed [facility]ine 00:00:00 [facility] Influenza High Dose 2019-11-24 Completed [facility] 00:00:00 [facility] Influenza Virus 2019-11-24 Completed [facility] Vaccine 00:00:00 [facility] Influenza High Dose 2019-11-24 Completed [facility] 00:00:00 [facility] Influenza Virus 2019-11-24 Completed [facility]ine 00:00:00 [facility] Influenza High Dose 2019-11-24 Completed [facility] 00:00:00 [facility] Influenza Virus 2019-11-24 Completed [facility]ine 00:00:00 [facility] Influenza High Dose 2019-11-24 Completed [facility] 00:00:00 [facility] Influenza Virus 2019-11-24 Completed [facility]ine 00:00:00 [facility] Influenza High Dose 2019-11-24 Completed [facility] 00:00:00 [facility] Influenza Virus 2019-11-24 Completed [facility]ine 00:00:00 [facility] Influenza High Dose 2019-11-24 Completed [facility] 00:00:00 [facility] Influenza Virus 2019-11-24 Completed [facility]ine 00:00:00 [facility] Influenza High Dose 2019-11-24 Completed [facility] 00:00:00 [facility] Influenza Virus 2019-11-24 Completed [facility]ine 00:00:00 [facility] Influenza High Dose 2019-11-24 Completed [facility] 00:00:00 [facility] Influenza Virus 2019-11-24 Completed [facility]ine 00:00:00 [facility] Influenza High Dose 2019-11-24 Completed [facility] 00:00:00 [facility] Influenza Virus 2019-11-24 Completed [facility]ine 00:00:00 [facility] Influenza High Dose 2019-11-24 Completed [facility] 00:00:00 [facility] Influenza Virus 2019-11-24 Completed [facility]ine 00:00:00 [facility] Influenza High Dose 2019-11-24 Completed [facility] 00:00:00 [facility] Influenza Virus 2019-11-24 Completed [facility]ine 00:00:00 [facility] Influenza High Dose 2019-11-24 Completed [facility] 00:00:00 [facility] Influenza Virus 2019-11-24 Completed [facility]ine 00:00:00 [facility] Influenza High Dose 2019-11-24 Completed [facility] 00:00:00 [facility] Influenza Virus 2019-11-24 Completed [facility]ine 00:00:00 [facility] Influenza High Dose 2019-11-24 Completed [facility] 00:00:00 [facility] Influenza Virus 2019-11-24 Completed [facility]ine 00:00:00 [facility] Influenza High Dose 2019-11-24 Completed [facility] 00:00:00 [facility] Influenza Virus 2019-11-24 Completed [facility]ine 00:00:00 [facility] Influenza High Dose 2019-11-24 Completed [facility] 00:00:00 [facility] Influenza Virus 2019-11-24 Completed [facility]ine 00[facility]00:00 [facility] Influenza High Dose 2019-11-24 Completed [facility] 00:00:00 [facility] Influenza Virus 2019-11-24 Completed [facility] Vaccine 00:00:00 [facility] Influenza High Dose 2019-11-24 Completed [facility] 00:00:00 [facility] Influenza Virus 2019-11-24 Completed [facility]ine 00:00:00 [facility] Influenza High Dose 2019-11-24 Completed [facility] 00:00:00 [facility] Influenza Virus 2019-11-24 Completed [facility]ine 00:00:00 [facility] Influenza High Dose 2019-11-24 Completed [facility] 00:00:00 [facility] Influenza Virus 2019-11-24 Completed [facility]ine 00:00:00 [facility] Influenza High Dose 2019-11-24 Completed [facility] 00:00:00 [facility] Influenza Virus 2019-11-24 Completed [facility] Vaccine 00:00:00 [facility] Influenza High Dose 2019-11-24 Completed [facility] 00:00:00 [facility] Influenza Virus 2019-11-24 Completed [facility]ine 00:00:00 [facility] Influenza High Dose 2019-11-24 Completed [facility] 00:00:00 [facility] Influenza Virus 2019-11-24 Completed [facility]ine 00:00:00 [facility] Influenza High Dose 2019-11-24 Completed [facility] 00:00:00 [facility] Influenza Virus 2019-11-24 Completed [facility]ine 00:00:00 [facility] Influenza High Dose 2019-11-24 Completed [facility] 00:00:00 [facility] Influenza Virus 2019-11-24 Completed [facility]ine 00:00:00 [facility] Influenza High Dose 2019-11-24 Completed [facility] 00:00:00 [facility] Influenza Virus 2019-11-24 Completed [facility] Vaccine 00:00:00 [facility] Influenza High Dose 2019-11-24 Completed [facility] 00:00:00 [facility] Influenza Virus 2019-11-24 Completed [facility]ine 00:00:00 [facility] Influenza High Dose 2019-11-24 Completed [facility] 00:00:00 [facility] Influenza Virus 2019-11-24 Completed [facility]ine 00:00:00 [facility] Influenza High Dose 2019-11-24 Completed [facility] 00:00:00 [facility] Influenza Virus 2019-11-24 Completed [facility]ine 00:00:00 [facility] Influenza High Dose 2019-11-24 Completed [facility] 00:00:00 [facility] Influenza Virus 2019-11-24 Completed [facility]ine 00:00:00 [facility] Influenza High Dose 2019-11-24 Completed [facility] 00:00:00 [facility] Influenza Virus 2019-11-24 Completed [facility] Vaccine 00:00:00 [facility] Influenza High Dose 2019-11-24 Completed [facility] 00:00:00 [facility] Influenza Virus 2019-11-24 Completed [facility]ine 00:00:00 [facility] Influenza High Dose 2019-11-24 Completed [facility] 00:00:00 [facility] Influenza Virus 2019-11-24 Completed [facility]ine 00:00:00 [facility] Influenza High Dose 2019-11-24 Completed [facility] 00:00:00 [facility] Influenza Virus 2019-11-24 Completed [facility]ine 00:00:00 [facility] Influenza High Dose 2019-11-24 Completed [facility] 00:00:00 [facility] Influenza Virus 2019-11-24 Completed [facility]ine 00:00:00 [facility] Influenza High Dose 2019-11-24 Completed [facility] 00:00:00 [facility] Influenza Virus 2019-11-24 Completed [facility]ine 00:00:00 [facility] Influenza High Dose 2019-11-24 Completed [facility] 00:00:00 [facility] Influenza Virus 2019-11-24 Completed [facility]ine 00:00:00 [facility] Influenza High Dose 2019-11-24 Completed [facility] 00:00:00 [facility] Influenza Virus 2019-11-24 Completed [facility]ine 00:00:00 [facility] Influenza High Dose 2019-11-24 Completed [facility] 00:00:00 [facility] Influenza Virus 2019-11-24 Completed [facility]ine 00:00:00 [facility] Influenza High Dose 2019-11-24 Completed [facility] 00:00:00 [facility] Influenza Virus 2019-11-24 Completed [facility] 00:00:00 [facility] Influenza High Dose 2019-11-24 Completed [facility] 00:00:00 [facility] Influenza Virus 2019-11-24 Completed [facility]ine 00:00:00 [facility] Influenza High Dose 2019-11-24 Completed [facility] 00:00:00 [facility] Influenza Virus 2019-11-24 Completed [facility]ine 00:00:00 [facility] Influenza High Dose 2019-11-24 Completed [facility] 00:00:00 [facility] Influenza Virus 2019-11-24 Completed [facility]ine 00:00:00 [facility] Influenza High Dose 2019-11-24 Completed [facility] 00:00:00 [facility] Influenza Virus 2019-11-24 Completed [facility]ine 00:00:00 [facility] Influenza High Dose 2019-11-24 Completed [facility] 00:00:00 [facility] Influenza Virus 2019-11-24 Completed [facility] 00:00:00 [facility] Influenza High Dose 2019-11-24 Completed [facility] 00:00:00 [facility] Influenza Virus 2019-11-24 Completed [facility]ine 00:00:00 [facility] Influenza High Dose 2019-11-24 Completed [facility] 00:00:00 [facility] Influenza Virus 2019-11-24 Completed [facility]ine 00:00:00 [facility] Influenza High Dose 2019-11-24 Completed [facility] 00:00:00 [facility] Influenza Virus 2019-11-24 Completed [facility] 00:00:00 [facility] Influenza High Dose 2019-11-24 Completed [facility] 00:00:00 [facility] Influenza Virus 2019-11-24 Completed [facility]ine 00:00:00 [facility] Influenza High Dose 2019-11-24 Completed [facility] 00:00:00 [facility] Influenza Virus 2019-11-24 Completed [facility] 00:00:00 [facility] Influenza High Dose 2019-11-24 Completed [facility] 00:00:00 [facility] Influenza Virus 2019-11-24 Completed [facility]ine 00:00:00 [facility] Influenza High Dose 2019-11-24 Completed [facility] 00:00:00 [facility] Influenza Virus 2019-11-24 Completed [facility]ine 00:00:00 [facility] Influenza High Dose 2019-11-24 Completed [facility] 00:00:00 [facility] Influenza Virus 2019-11-24 Completed [facility]ine 00:00:00 [facility] Influenza High Dose 2019-11-24 Completed [facility] 00:00:00 [facility] Influenza Virus 2019-11-24 Completed [facility] 00:00:00 [facility] Influenza High Dose 2019-11-24 Completed [facility] 00:00:00 [facility] Influenza Virus 2019-11-24 Completed [facility] 00:00:00 [facility] Influenza High Dose 2019-11-24 Completed [facility] 00:00:00 [facility] Influenza Virus 2019-11-24 Completed [facility]ine 00:00:00 [facility] Influenza High Dose 2019-11-24 Completed [facility] 00:00:00 [facility] Influenza Virus 2019-11-24 Completed [facility] 00:00:00 [facility] Influenza High Dose 2019-11-24 Completed [facility] 00:00:00 [facility] Influenza Virus 2019-11-24 Completed [facility] 00:00:00 [facility] Influenza High Dose 2019-11-24 Completed [facility] 00:00:00 [facility] Influenza Virus 2019-11-24 Completed [facility] 00:00:00 [facility] Influenza High Dose 2019-11-24 Completed [facility] 00:00:00 [facility] Influenza Virus 2019-11-24 Completed [facility] 00:00:00 [facility] Influenza High Dose 2019-11-24 Completed [facility] 00:00:00 [facility] Influenza Virus 2019-11-24 Completed [facility] 00:00:00 [facility] Influenza High Dose 2019-11-24 Completed [facility] 00:00:00 [facility] Influenza Virus 2019-11-24 Completed [facility] 00:00:00 [facility] Influenza High Dose 2019-11-24 Completed [facility] 00:00:00 [facility] Influenza Virus 2019-11-24 Completed [facility] 00:00:00 [facility] Influenza High Dose 2019-11-24 Completed [facility] 00:00:00 [facility] Influenza Virus 2019-11-24 Completed [facility] 00:00:00 [facility] Influenza High Dose 2019-11-24 Completed [facility] 00:00:00 [facility] Influenza Virus 2019-11-24 Completed [facility] 00:00:00 [facility] Influenza High Dose 2019-11-24 Completed [facility] 00:00:00 [facility] Influenza Virus 2019-11-24 Completed [facility] 00:00:00 [facility] Influenza High Dose 2019-11-24 Completed [facility] 00:00:00 [facility] Influenza Virus 2019-11-24 Completed [facility] 00:00:00 [facility] Influenza High Dose 2019-11-24 Completed [facility] 00:00:00 [facility] Influenza Virus 2019-11-24 Completed [facility] 00:00:00 [facility] Influenza High Dose 2019-11-24 Completed [facility] 00:00:00 [facility] Influenza Virus 2019-11-24 Completed [facility] 00:00:00 [facility] Influenza High Dose 2019-11-24 Completed [facility] 00:00:00 [facility] Influenza Virus 2019-11-24 Completed [facility] 00:00:00 [facility] Influenza High Dose 2019-11-24 Completed [facility] 00:00:00 [facility] Influenza Virus 2019-11-24 Completed [facility] 00:00:00 [facility] Influenza High Dose 2019-11-24 Completed [facility] 00:00:00 [facility] Influenza Virus 2019-11-24 Completed [facility] 00:00:00 [facility] Influenza High Dose 2019-11-24 Completed [facility] 00:00:00 [facility] Influenza Virus 2019-11-24 Completed [facility] 00:00:00 [facility] Influenza High Dose 2019-11-24 Completed [facility] 00:00:00 [facility] Influenza Virus 2019-11-24 Completed [facility] 00:00:00 [facility] Influenza High Dose 2019-11-24 Completed [facility] 00:00:00 [facility] Influenza Virus 2019-11-24 Completed [facility] 00:00:00 [facility] Influenza High Dose 2019-11-24 Completed [facility] 00:00:00 [facility] Influenza Virus 2019-11-24 Completed [facility] 00:00:00 [facility] Influenza High Dose 2019-11-24 Completed [facility] 00:00:00 [facility] Influenza Virus 2019-11-24 Completed [facility]ine 00:00:00 [facility] Influenza High Dose 2019-11-24 Completed [facility] 00:00:00 [facility] Influenza Virus 2019-11-24 Completed [facility] Vaccine 00:00:00 [facility] Influenza High Dose 2019-11-24 Completed [facility] 00:00:00 [facility] Influenza Virus 2019-11-24 Completed [facility]ine 00:00:00 [facility] Influenza High Dose 2019-11-24 Completed [facility] 00:00:00 [facility] Influenza Virus 2019-11-24 Completed [facility] 00:00:00 [facility] Influenza High Dose 2019-11-24 Completed [facility] 00:00:00 [facility] Influenza Virus 2019-11-24 Completed [facility] Vaccine 00:00:00 [facility] Influenza High Dose 2019-11-24 Completed [facility] 00:00:00 [facility] Influenza Virus 2019-11-24 Completed [facility] Vaccine 00:00:00 [facility] Influenza High Dose 2019-11-24 Completed [facility] 00:00:00 [facility] Influenza Virus 2019-11-24 Completed [facility] 00:00:00 [facility] Influenza High Dose 2019-11-24 Completed [facility] 00:00:00 [facility] Influenza Virus 2019-11-24 Completed [facility]ine 00:00:00 [facility] Influenza High Dose 2019-11-24 Completed [facility] 00:00:00 [facility] Influenza Virus 2019-11-24 Completed [facility]ine 00:00:00 [facility] Influenza High Dose 2019-11-24 Completed [facility] 00:00:00 [facility] Influenza Virus 2019-11-24 Completed [facility] 00:00:00 [facility] Influenza High Dose 2019-11-24 Completed [facility] 00:00:00 [facility] Influenza Virus 2019-11-24 Completed [facility]ine 00:00:00 [facility] Influenza High Dose 2019-11-24 Completed [facility] 00:00:00 [facility] Influenza Virus 2019-11-24 Completed [facility]ine 00:00:00 [facility] Influenza High Dose 2019-11-24 Completed [facility] 00:00:00 [facility] Influenza Virus 2019-11-24 Completed [facility] 00:00:00 [facility] Influenza High Dose 2019-11-24 Completed [facility] 00:00:00 [facility] Influenza Virus 2019-11-24 Completed [facility] 00:00:00 [facility] Influenza High Dose 2019-11-24 Completed [facility] 00:00:00 [facility] Influenza Virus 2019-11-24 Completed [facility] 00:00:00 [facility] Influenza High Dose 2019-11-24 Completed [facility] 00:00:00 [facility] Influenza Virus 2019-11-24 Completed [facility] 00:00:00 [facility] Influenza High Dose 2019-11-24 Completed [facility] 00:00:00 [facility] Influenza Virus 2019-11-24 Completed [facility] 00:00:00 [facility] Influenza High Dose 2019-11-24 Completed [facility] 00:00:00 [facility] Influenza Virus 2019-11-24 Completed [facility]ine 00:00:00 [facility] Influenza High Dose 2019-01-20 Completed [facility] 00:00:00 [facility] Influenza High Dose 2019-01-20 Completed [facility] 00:00:00 [facility] Influenza High Dose 2019-01-20 Completed [facility] 00:00:00 [facility] Influenza High Dose 2019-01-20 Completed [facility] 00:00:00 [facility] Influenza High Dose 2019-01-20 Completed [facility] 00:00:00 [facility] Influenza High Dose 2019-01-20 Completed [facility] 00:00:00 [facility] Influenza High Dose 2019-01-20 Completed [facility] 00:00:00 [facility] Influenza High Dose 2019-01-20 Completed [facility] 00:00:00 [facility] Influenza High Dose 2019-01-20 Completed [facility] 00:00:00 [facility] Influenza High Dose 2019-01-20 Completed [facility] 00:00:00 [facility] Influenza High Dose 2019-01-20 Completed [facility] 00:00:00 [facility] Influenza High Dose 2019-01-20 Completed [facility] 00:00:00 [facility] Influenza High Dose 2019-01-20 Completed [facility] 00:00:00 [facility] Influenza High Dose 2019-01-20 Completed [facility] 00:00:00 [facility] Influenza High Dose 2019-01-20 Completed [facility] 00:00:00 [facility] Influenza High Dose 2019-01-20 Completed [facility] 00:00:00 [facility] Influenza High Dose 2019-01-20 Completed [facility] 00:00:00 [facility] Influenza High Dose 2019-01-20 Completed [facility] 00:00:00 [facility] Influenza High Dose 2019-01-20 Completed [facility] 00:00:00 [facility] Influenza High Dose 2019-01-20 Completed [facility] 00:00:00 [facility] Influenza High Dose 2019-01-20 Completed [facility] 00:00:00 [facility] Influenza High Dose 2019-01-20 Completed [facility] 00:00:00 [facility] Influenza High Dose 2019-01-20 Completed [facility] 00:00:00 [facility] Influenza High Dose 2019-01-20 Completed [facility] 00:00:00 [facility] Influenza High Dose 2019-01-20 Completed [facility] 00:00:00 [facility] Influenza High Dose 2019-01-20 Completed [facility] 00:00:00 [facility] Influenza High Dose 2019-01-20 Completed [facility] 00:00:00 [facility] Influenza High Dose 2019-01-20 Completed [facility] 00:00:00 [facility] Influenza High Dose 2019-01-20 Completed [facility] 00:00:00 [facility] Influenza High Dose 2019-01-20 Completed [facility] 00:00:00 [facility] Influenza High Dose 2019-01-20 Completed [facility] 00:00:00 [facility] Influenza High Dose 2019-01-20 Completed [facility] 00:00:00 [facility] Influenza High Dose 2019-01-20 Completed [facility] 00:00:00 [facility] Influenza High Dose 2019-01-20 Completed [facility] 00:00:00 [facility] Influenza High Dose 2019-01-20 Completed [facility] 00:00:00 [facility] Influenza High Dose 2019-01-20 Completed [facility] 00:00:00 [facility] Influenza High Dose 2019-01-20 Completed [facility] 00:00:00 [facility] Influenza High Dose 2019-01-20 Completed [facility] 00:00:00 [facility] Influenza High Dose 2019-01-20 Completed [facility] 00:00:00 [facility] Influenza High Dose 2019-01-20 Completed [facility] 00:00:00 [facility] Influenza High Dose 2019-01-20 Completed [facility] 00:00:00 [facility] Influenza High Dose 2019-01-20 Completed [facility] 00:00:00 [facility] Influenza High Dose 2019-01-20 Completed [facility] 00:00:00 [facility] Influenza High Dose 2019-01-20 Completed [facility] 00:00:00 [facility] Influenza High Dose 2019-01-20 Completed [facility] 00:00:00 [facility] Influenza High Dose 2019-01-20 Completed [facility] 00:00:00 [facility] Influenza High Dose 2019-01-20 Completed [facility] 00:00:00 [facility] Influenza High Dose 2019-01-20 Completed [facility] 00:00:00 [facility] Influenza High Dose 2019-01-20 Completed [facility] 00[facility]:00 [facility] [facility] 2019[facility]20 Completed [facility] 00:00:00 [facility] Influenza High Dose 2019-01-20 Completed [facility] 00:00:00 [facility] Influenza High Dose 2019-01-20 Completed [facility] 00:00:00 [facility] Influenza High Dose 2019-01-20 Completed [facility] 00:00:00 [facility] Influenza High Dose 2019-01-20 Completed [facility] 00:00:00 [facility] Influenza High Dose 2019-01-20 Completed [facility] 00:00:00 [facility] Influenza High Dose 2019-01-20 Completed [facility] 00:00:00 [facility] Influenza High Dose 2019-01-20 Completed [facility] 00:00:00 [facility] Influenza High Dose 2019-01-20 Completed [facility] 00:00:00 [facility] Influenza High Dose 2019-01-20 Completed [facility] 00:00:00 [facility] Influenza High Dose 2019-01-20 Completed [facility] 00:00:00 [facility] Influenza High Dose 2019-01-20 Completed [facility] 00:00:00 [facility] Influenza High Dose 2019-01-20 Completed [facility] 00:00:00 [facility] Influenza High Dose 2019-01-20 Completed [facility] 00:00:00 [facility] Influenza High Dose 2019-01-20 Completed [facility] 00:00:00 [facility] Influenza High Dose 2019-01-20 Completed [facility] 00:00:00 [facility] Influenza High Dose 2019-01-20 Completed [facility] 00:00:00 [facility] Influenza High Dose 2019-01-20 Completed [facility] 00:00:00 [facility] Influenza High Dose 2019-01-20 Completed [facility] 00:00:00 [facility] Influenza High Dose 2019-01-20 Completed [facility] 00:00:00 [facility] Influenza High Dose 2019-01-20 Completed [facility] 00:00:00 [facility] Influenza High Dose 2019-01-20 Completed [facility] 00:00:00 [facility] Influenza High Dose 2019-01-20 Completed [facility] 00:00:00 [facility] Influenza High Dose 2019-01-20 Completed [facility] 00:00:00 [facility] Influenza High Dose 2019-01-20 Completed [facility] 00:00:00 [facility] Influenza High Dose 2019-01-20 Completed [facility] 00:00:00 [facility] Influenza High Dose 2019-01-20 Completed [facility] 00:00:00 [facility] Influenza High Dose 2019-01-20 Completed [facility] 00:00:00 [facility] Influenza High Dose 2019-01-20 Completed [facility] 00:00:00 [facility] Influenza High Dose 2019-01-20 Completed [facility] 00:00:00 [facility] Influenza High Dose 2019-01-20 Completed [facility] 00:00:00 [facility] Influenza High Dose 2019-01-20 Completed [facility] 00:00:00 [facility] Influenza High Dose 2019-01-20 Completed [facility] 00:00:00 [facility] Influenza High Dose 2019-01-20 Completed [facility] 00:00:00 [facility] Influenza High Dose 2019-01-20 Completed [facility] 00:00:00 [facility] Influenza High Dose 2019-01-20 Completed [facility] 00:00:00 [facility] Influenza High Dose 2019-01-20 Completed [facility] 00:00:00 [facility] Influenza High Dose 2019-01-20 Completed [facility] 00:00:00 [facility] Influenza High Dose 2019-01-20 Completed [facility] 00:00:00 [facility] Influenza High Dose 2019-01-20 Completed [facility] 00:00:00 [facility] Influenza High Dose 2019-01-20 Completed [facility] 00:00:00 [facility] Influenza High Dose 2019-01-20 Completed [facility] 00:00:00 [facility] Influenza High Dose 2019-01-20 Completed [facility] 00:00:00 [facility] Influenza High Dose 2019-01-20 Completed [facility] 00:00:00 [facility] Influenza High Dose 2019-01-20 Completed [facility] 00:00:00 [facility] Influenza High Dose 2019-01-20 Completed [facility] 00:00:00 [facility] Influenza High Dose 2019-01-20 Completed [facility] 00:00:00 [facility] Influenza High Dose 2019-01-20 Completed [facility] 00:00:00 [facility] Influenza High Dose 2019-01-20 Completed [facility] 00:00:00 [facility] Influenza High Dose 2019-01-20 Completed [facility] 00:00:00 [facility] Influenza High Dose 2019-01-20 Completed [facility] 00:00:00 [facility] Influenza High Dose 2019-01-20 Completed [facility] 00:00:00 [facility] Influenza High Dose 2019-01-20 Completed [facility] 00:00:00 [facility] Influenza High Dose 2019-01-20 Completed [facility] 00:00:00 [facility] Influenza High Dose 2019-01-20 Completed [facility] 00:00:00 [facility] Influenza High Dose 2019-01-20 Completed [facility] 00:00:00 [facility] Influenza High Dose 2019-01-20 Completed [facility] 00:00:00 [facility] Influenza High Dose 2019-01-20 Completed [facility] 00:00:00 [facility] Influenza High Dose 2019-01-20 Completed [facility] 00:00:00 [facility] Influenza High Dose 2019-01-20 Completed [facility] 00:00:00 [facility] Influenza High Dose 2019-01-20 Completed [facility] 00:00:00 [facility] Influenza High Dose 2019-01-20 Completed [facility] 00:00:00 [facility] Influenza High Dose 2019-01-20 Completed [facility] 00:00:00 [facility] Influenza High Dose 2019-01-20 Completed [facility] 00:00:00 [facility] Influenza High Dose 2019-01-20 Completed [facility] 00:00:00 [facility] Influenza High Dose 2019-01-20 Completed [facility] 00:00:00 [facility] Influenza High Dose 2019-01-20 Completed [facility] 00:00:00 [facility] Influenza High Dose 2019-01-20 Completed [facility] 00:00:00 [facility] Influenza High Dose 2019-01-20 Completed [facility] 00:00:00 [facility] Influenza High Dose 2019-01-20 Completed [facility] 00:00:00 [facility] Influenza High Dose 2018-05-08 Completed [facility] 00:00:00 [facility] Pneumococcal 2018-05-08 Completed [facility] Polysaccharide, 00:00:00 [place] [facility] PPSV23 (PNEUMOVAX) [facility] Influenza High Dose 2018-05-08 Completed [facility] 00:00:00 [facility] Pneumococcal 2018-05-08 Completed [facility] Polysaccharide, 00:00:00 [place] [facility] PPSV23 (PNEUMOVAX) [facility] Influenza High Dose 2018-05-08 Completed [facility] 00:00:00 [facility] Pneumococcal 2018-05-08 Completed [facility] Polysaccharide, 00:00:00 [place] [facility] PPSV23 (PNEUMOVAX) [facility] Influenza High Dose 2018-05-08 Completed [facility] 00:00:00 [facility] Pneumococcal 2018-05-08 Completed [facility] Polysaccharide, 00:00:00 [place] [facility] PPSV23 (PNEUMOVAX) [facility] Influenza High Dose 2018-05-08 Completed [facility] 00:00:00 [facility] Pneumococcal 2018-05-08 Completed [facility] Polysaccharide, 00:00:00 [place] [facility] PPSV23 (PNEUMOVAX) [facility] Influenza High Dose 2018-05-08 Completed [facility] 00:00:00 [facility] Pneumococcal 2018-05-08 Completed [facility] Polysaccharide, 00:00:00 [place] [facility] PPSV23 (PNEUMOVAX) [facility] Influenza High Dose 2018-05-08 Completed [facility] 00:00:00 [facility] Pneumococcal 2018-05-08 Completed [facility] Polysaccharide, 00:00:00 [place] [facility] PPSV23 (PNEUMOVAX) [facility] Influenza High Dose 2018-05-08 Completed [facility] 00:00:00 [facility] Pneumococcal 2018-05-08 Completed [facility] Polysaccharide, 00:00:00 [place] [facility] PPSV23 (PNEUMOVAX) [facility] Influenza High Dose 2018-05-08 Completed [facility] 00:00:00 [facility] Pneumococcal 2018-05-08 Completed [facility] Polysaccharide, 00:00:00 [place] [facility] PPSV23 (PNEUMOVAX) [facility] Influenza High Dose 2018-05-08 Completed [facility] 00:00:00 [facility] Pneumococcal 2018-05-08 Completed [facility] Polysaccharide, 00:00:00 [place] [facility] PPSV23 (PNEUMOVAX) [facility] Influenza High Dose 2018-05-08 Completed [facility] 00:00:00 [facility] Pneumococcal 2018-05-08 Completed [facility] Polysaccharide, 00:00:00 [place] [facility] PPSV23 (PNEUMOVAX) [facility] Influenza High Dose 2018-05-08 Completed [facility] 00:00:00 [facility] Pneumococcal 2018-05-08 Completed [facility] Polysaccharide, 00:00:00 [place] [facility] PPSV23 (PNEUMOVAX) [facility] Influenza High Dose 2018-05-08 Completed [facility] 00:00:00 [facility] Pneumococcal 2018-05-08 Completed [facility] Polysaccharide, 00:00:00 [place] [facility] PPSV23 (PNEUMOVAX) [facility] Influenza High Dose 2018-05-08 Completed [facility] 00:00:00 [facility] Pneumococcal 2018-05-08 Completed [facility] Polysaccharide, 00:00:00 [place] [facility] PPSV23 (PNEUMOVAX) [facility] Influenza High Dose 2018-05-08 Completed [facility] 00:00:00 [facility] Pneumococcal 2018-05-08 Completed [facility] Polysaccharide, 00:00:00 [place] [facility] PPSV23 (PNEUMOVAX) [facility] Influenza High Dose 2018-05-08 Completed [facility] 00:00:00 [facility] Pneumococcal 2018-05-08 Completed [facility] Polysaccharide, 00:00:00 [place] [facility] PPSV23 (PNEUMOVAX) [facility] Influenza High Dose 2018-05-08 Completed [facility] 00:00:00 [facility] Pneumococcal 2018-05-08 Completed [facility] Polysaccharide, 00:00:00 [place] [facility] PPSV23 (PNEUMOVAX) [facility] Influenza High Dose 2018-05-08 Completed [facility] 00:00:00 [facility] Pneumococcal 2018-05-08 Completed [facility] Polysaccharide, 00:00:00 [place] [facility] PPSV23 (PNEUMOVAX) [facility] Influenza High Dose 2018-05-08 Completed [facility] 00:00:00 [facility] Pneumococcal 2018-05-08 Completed [facility] Polysaccharide, 00:00:00 [place] [facility] PPSV23 (PNEUMOVAX) [facility] Influenza High Dose 2018-05-08 Completed [facility] 00:00:00 [facility] Pneumococcal 2018-05-08 Completed [facility] Polysaccharide, 00:00:00 [place] [facility] PPSV23 (PNEUMOVAX) [facility] Influenza High Dose 2018-05-08 Completed [facility] 00:00:00 [facility] Pneumococcal 2018-05-08 Completed [facility] Polysaccharide, 00:00:00 [place] [facility] PPSV23 (PNEUMOVAX) [facility] Influenza High Dose 2018-05-08 Completed [facility] 00:00:00 [facility] Pneumococcal 2018-05-08 Completed [facility] Polysaccharide, 00:00:00 [place] [facility] PPSV23 (PNEUMOVAX) [facility] Influenza High Dose 2018-05-08 Completed [facility] 00:00:00 [facility] Pneumococcal 2018-05-08 Completed [facility] Polysaccharide, 00:00:00 [place] [facility] PPSV23 (PNEUMOVAX) [facility] Influenza High Dose 2018-05-08 Completed [facility] 00:00:00 [facility] Pneumococcal 2018-05-08 Completed [facility] Polysaccharide, 00:00:00 [place] [facility] PPSV23 (PNEUMOVAX) [facility] Influenza High Dose 2018-05-08 Completed [facility] 00:00:00 [facility] Pneumococcal 2018-05-08 Completed [facility] Polysaccharide, 00:00:00 [place] [facility] PPSV23 (PNEUMOVAX) [facility] Influenza High Dose 2018-05-08 Completed [facility] 00:00:00 [facility] Pneumococcal 2018-05-08 Completed [facility] Polysaccharide, 00:00:00 [place] [facility] PPSV23 (PNEUMOVAX) [facility] Influenza High Dose 2018-05-08 Completed [facility] 00:00:00 [facility] Pneumococcal 2018-05-08 Completed [facility] Polysaccharide, 00:00:00 [place] [facility] PPSV23 (PNEUMOVAX) [facility] Influenza High Dose 2018-05-08 Completed [facility] 00:00:00 [facility] Pneumococcal 2018-05-08 Completed [facility] Polysaccharide, 00:00:00 [place] [facility] PPSV23 (PNEUMOVAX) [facility] Influenza High Dose 2018-05-08 Completed [facility] 00:00:00 [facility] Pneumococcal 2018-05-08 Completed [facility] Polysaccharide, 00:00:00 [place] [facility] PPSV23 (PNEUMOVAX) [facility] Influenza High Dose 2018-05-08 Completed [facility] 00:00:00 [facility] Pneumococcal 2018-05-08 Completed [facility] Polysaccharide, 00:00:00 [place] [facility] PPSV23 (PNEUMOVAX) [facility] Influenza High Dose 2018-05-08 Completed [facility] 00:00:00 [facility] Pneumococcal 2018-05-08 Completed [facility] Polysaccharide, 00:00:00 [place] [facility] PPSV23 (PNEUMOVAX) [facility] Influenza High Dose 2018-05-08 Completed [facility] 00:00:00 [facility] Pneumococcal 2018-05-08 Completed [facility] Polysaccharide, 00:00:00 [place] [facility] PPSV23 (PNEUMOVAX) [facility] Influenza High Dose 2018-05-08 Completed [facility] 00:00:00 [facility] Pneumococcal 2018-05-08 Completed [facility] Polysaccharide, 00:00:00 [place] [facility] PPSV23 (PNEUMOVAX) [facility] Influenza High Dose 2018-05-08 Completed [facility] 00:00:00 [facility] Pneumococcal 2018-05-08 Completed [facility] Polysaccharide, 00:00:00 [place] [facility] PPSV23 (PNEUMOVAX) [facility] Influenza High Dose 2018-05-08 Completed [facility] 00:00:00 [facility] Pneumococcal 2018-05-08 Completed [facility] Polysaccharide, 00:00:00 [place] [facility] PPSV23 (PNEUMOVAX) [facility] Influenza High Dose 2018-05-08 Completed [facility] 00:00:00 [facility] Pneumococcal 2018-05-08 Completed [facility] Polysaccharide, 00:00:00 [place] [facility] PPSV23 (PNEUMOVAX) [facility] Influenza High Dose 2018-05-08 Completed [facility] 00:00:00 [facility] Pneumococcal 2018-05-08 Completed [facility] f Polysaccharide, 00:00:00 [place] [facility] PPSV23 (PNEUMOVAX) [facility] Influenza High Dose 2018-05-08 Completed [facility] 00:00:00 [facility] Pneumococcal 2018-05-08 Completed [facility] Polysaccharide, 00:00:00 [place] [facility] PPSV23 (PNEUMOVAX) [facility] Influenza High Dose 2018-05-08 Completed [facility] 00:00:00 [facility] Pneumococcal 2018-05-08 Completed [facility] f Polysaccharide, 00:00:00 [place] [facility] PPSV23 (PNEUMOVAX) [facility] Influenza High Dose 2018-05-08 Completed [facility] 00:00:00 [facility] Pneumococcal 2018-05-08 Completed [facility] f Polysaccharide, 00:00:00 [place] [facility] PPSV23 (PNEUMOVAX) [facility] Influenza High Dose 2018-05-08 Completed [facility] 00:00:00 [facility] Pneumococcal 2018-05-08 Completed [facility] Polysaccharide, 00:00:00 [place] [facility] PPSV23 (PNEUMOVAX) [facility] Influenza High Dose 2018-05-08 Completed [facility] 00:00:00 [facility] Pneumococcal 2018-05-08 Completed [facility] f Polysaccharide, 00:00:00 [place] [facility] PPSV23 (PNEUMOVAX) [facility] Influenza High Dose 2018-05-08 Completed [facility] 00:00:00 [facility] Pneumococcal 2018-05-08 Completed [facility] f Polysaccharide, 00:00:00 [place] [facility] PPSV23 (PNEUMOVAX) [facility] Influenza High Dose 2018-05-08 Completed [facility] 00:00:00 [facility] Pneumococcal 2018-05-08 Completed [facility] f Polysaccharide, 00:00:00 [place] [facility] PPSV23 (PNEUMOVAX) [facility] Influenza High Dose 2018-05-08 Completed [facility] 00:00:00 [facility] Pneumococcal 2018-05-08 Completed [facility] f Polysaccharide, 00:00:00 [place] [facility] PPSV23 (PNEUMOVAX) [facility] Influenza High Dose 2018-05-08 Completed [facility] 00:00:00 [facility] Pneumococcal 2018-05-08 Completed [facility] f Polysaccharide, 00:00:00 [place] [facility] PPSV23 (PNEUMOVAX) [facility] Influenza High Dose 2018-05-08 Completed [facility] 00:00:00 [facility] Pneumococcal 2018-05-08 Completed [facility] f Polysaccharide, 00:00:00 [place] [facility] PPSV23 (PNEUMOVAX) [facility] Influenza High Dose 2018-05-08 Completed [facility] 00:00:00 [facility] Pneumococcal 2018-05-08 Completed [facility] f Polysaccharide, 00:00:00 [place] [facility] PPSV23 (PNEUMOVAX) [facility] Influenza High Dose 2018-05-08 Completed [facility] 00:00:00 [facility] Pneumococcal 2018-05-08 Completed [facility] f Polysaccharide, 00:00:00 [place] [facility] PPSV23 (PNEUMOVAX) [facility] Influenza High Dose 2018-05-08 Completed [facility] 00:00:00 [facility] Pneumococcal 2018-05-08 Completed [facility] f Polysaccharide, 00:00:00 [place] [facility] PPSV23 (PNEUMOVAX) [facility] Influenza High Dose 2018-05-08 Completed [facility] 00:00:00 [facility] Pneumococcal 2018-05-08 Completed [facility] f Polysaccharide, 00:00:00 [place] [facility] PPSV23 (PNEUMOVAX) [facility] Influenza High Dose 2018-05-08 Completed [facility] 00:00:00 [facility] Pneumococcal 2018-05-08 Completed [facility] f Polysaccharide, 00:00:00 [place] [facility] PPSV23 (PNEUMOVAX) [facility] Influenza High Dose 2018-05-08 Completed [facility] 00:00:00 [facility] Pneumococcal 2018-05-08 Completed [facility] f Polysaccharide, 00:00:00 [place] [facility] PPSV23 (PNEUMOVAX) [facility] Influenza High Dose 2018-05-08 Completed [facility] 00:00:00 [facility] Pneumococcal 2018-05-08 Completed [facility] f Polysaccharide, 00:00:00 [place] [facility] PPSV23 (PNEUMOVAX) [facility] Influenza High Dose 2018-05-08 Completed [facility] 00:00:00 [facility] Pneumococcal 2018-05-08 Completed [facility] f Polysaccharide, 00:00:00 [place] [facility] PPSV23 (PNEUMOVAX) [facility] Influenza High Dose 2018-05-08 Completed [facility] 00:00:00 [facility] Pneumococcal 2018-05-08 Completed [facility] f Polysaccharide, 00:00:00 [place] [facility] PPSV23 (PNEUMOVAX) [facility] Influenza High Dose 2018-05-08 Completed [facility] 00:00:00 [facility] Pneumococcal 2018-05-08 Completed [facility] f Polysaccharide, 00:00:00 [place] [facility] PPSV23 (PNEUMOVAX) [facility] Influenza High Dose 2018-05-08 Completed [facility] 00:00:00 [facility] Pneumococcal 2018-05-08 Completed [facility] f Polysaccharide, 00:00:00 [place] [facility] PPSV23 (PNEUMOVAX) [facility] Influenza High Dose 2018-05-08 Completed [facility] 00:00:00 [facility] Pneumococcal 2018-05-08 Completed [facility] f Polysaccharide, 00:00:00 [place] [facility] PPSV23 (PNEUMOVAX) [facility] Influenza High Dose 2018-05-08 Completed [facility] 00:00:00 [facility] Pneumococcal 2018-05-08 Completed [facility] f Polysaccharide, 00:00:00 [place] [facility] PPSV23 (PNEUMOVAX) [facility] Influenza High Dose 2018-05-08 Completed [facility] 00:00:00 [facility] Pneumococcal 2018-05-08 Completed [facility] f Polysaccharide, 00:00:00 [place] [facility] PPSV23 (PNEUMOVAX) [facility] Influenza High Dose 2018-05-08 Completed [facility] 00:00:00 [facility] Pneumococcal 2018-05-08 Completed [facility] Polysaccharide, 00:00:00 [place] [facility] PPSV23 (PNEUMOVAX) [facility] Influenza High Dose 2018-05-08 Completed [facility] 00:00:00 [facility] Pneumococcal 2018-05-08 Completed [facility] Polysaccharide, 00:00:00 [place] [facility] PPSV23 (PNEUMOVAX) [facility] Influenza High Dose 2018-05-08 Completed [facility] 00:00:00 [facility] Pneumococcal 2018-05-08 Completed [facility] Polysaccharide, 00:00:00 [place] [facility] PPSV23 (PNEUMOVAX) [facility] Influenza High Dose 2018-05-08 Completed [facility] 00:00:00 [facility] Pneumococcal 2018-05-08 Completed [facility] f Polysaccharide, 00:00:00 [place] [facility] PPSV23 (PNEUMOVAX) [facility] Influenza High Dose 2018-05-08 Completed [facility] 00:00:00 [facility] Pneumococcal 2018-05-08 Completed [facility] f Polysaccharide, 00:00:00 [place] [facility] PPSV23 (PNEUMOVAX) [facility] Influenza High Dose 2018-05-08 Completed [facility] 00:00:00 [facility] Pneumococcal 2018-05-08 Completed [facility] f Polysaccharide, 00:00:00 [place] [facility] PPSV23 (PNEUMOVAX) [facility] Influenza High Dose 2018-05-08 Completed [facility] 00:00:00 [facility] Pneumococcal 2018-05-08 Completed [facility] f Polysaccharide, 00:00:00 [place] [facility] PPSV23 (PNEUMOVAX) [facility] Influenza High Dose 2018-05-08 Completed [facility] 00:00:00 [facility] Pneumococcal 2018-05-08 Completed [facility] f Polysaccharide, 00:00:00 [place] [facility] PPSV23 (PNEUMOVAX) [facility] Influenza High Dose 2018-05-08 Completed [facility] 00:00:00 [facility] Pneumococcal 2018-05-08 Completed [facility] f Polysaccharide, 00:00:00 [place] [facility] PPSV23 (PNEUMOVAX) [facility] Influenza High Dose 2018-05-08 Completed [facility] 00:00:00 [facility] Pneumococcal 2018-05-08 Completed [facility] f Polysaccharide, 00:00:00 [place] [facility] PPSV23 (PNEUMOVAX) [facility] Influenza High Dose 2018-05-08 Completed [facility] 00:00:00 [facility] Pneumococcal 2018-05-08 Completed [facility] f Polysaccharide, 00:00:00 [place] [facility] PPSV23 (PNEUMOVAX) [facility] Influenza High Dose 2018-05-08 Completed [facility] 00:00:00 [facility] Pneumococcal 2018-05-08 Completed [facility] f Polysaccharide, 00:00:00 [place] [facility] PPSV23 (PNEUMOVAX) [facility] Influenza High Dose 2018-05-08 Completed [facility] 00:00:00 [facility] Pneumococcal 2018-05-08 Completed [facility] f Polysaccharide, 00:00:00 [place] [facility] PPSV23 (PNEUMOVAX) [facility] Influenza High Dose 2018-05-08 Completed [facility] 00:00:00 [facility] Pneumococcal 2018-05-08 Completed [facility] f Polysaccharide, 00:00:00 [place] [facility] PPSV23 (PNEUMOVAX) [facility] Influenza High Dose 2018-05-08 Completed [facility] 00:00:00 [facility] Pneumococcal 2018-05-08 Completed [facility] f Polysaccharide, 00:00:00 [place] [facility] PPSV23 (PNEUMOVAX) [facility] Influenza High Dose 2018-05-08 Completed [facility] 00:00:00 [facility] Pneumococcal 2018-05-08 Completed [facility] f Polysaccharide, 00:00:00 [place] [facility] PPSV23 (PNEUMOVAX) Branch Influenza High Dose 2018-05-08 Completed [facility] 00:00:00 [facility] Pneumococcal 2018-05-08 Completed [facility] f Polysaccharide, 00:00:00 [place] [facility] PPSV23 (PNEUMOVAX) [facility] Influenza High Dose 2018-05-08 Completed [facility] 00:00:00 [facility] Pneumococcal 2018-05-08 Completed [facility] f Polysaccharide, 00:00:00 [place] [facility] PPSV23 (PNEUMOVAX) [facility] Influenza High Dose 2018-05-08 Completed [facility] 00:00:00 [facility] Pneumococcal 2018-05-08 Completed [facility] f Polysaccharide, 00:00:00 [place] [facility] PPSV23 (PNEUMOVAX) [facility] Influenza High Dose 2018-05-08 Completed [facility] 00:00:00 [facility] Pneumococcal 2018-05-08 Completed [facility] f Polysaccharide, 00:00:00 [place] [facility] PPSV23 (PNEUMOVAX) Branch Influenza High Dose 2018-05-08 Completed [facility] 00:00:00 [facility] Pneumococcal 2018-05-08 Completed [facility] f Polysaccharide, 00:00:00 [place] [facility] PPSV23 (PNEUMOVAX) [facility] Influenza High Dose 2018-05-08 Completed [facility] 00:00:00 [facility] Pneumococcal 2018-05-08 Completed [facility] f Polysaccharide, 00:00:00 [place] [facility] PPSV23 (PNEUMOVAX) [facility] Influenza High Dose 2018-05-08 Completed [facility] 00:00:00 [facility] Pneumococcal 2018-05-08 Completed [facility] f Polysaccharide, 00:00:00 [place] [facility] PPSV23 (PNEUMOVAX) [facility] Influenza High Dose 2018-05-08 Completed [facility] 00:00:00 [facility] Pneumococcal 2018-05-08 Completed [facility] Polysaccharide, 00:00:00 [place] [facility] PPSV23 (PNEUMOVAX) Branch Influenza High Dose 2018-05-08 Completed [facility] 00:00:00 [facility] Pneumococcal 2018-05-08 Completed [facility] f Polysaccharide, 00:00:00 [place] [facility] PPSV23 (PNEUMOVAX) Branch Influenza High Dose 2018-05-08 Completed [facility] of 00:00:00 [facility] Pneumococcal 2018-05-08 Completed [facility] f Polysaccharide, 00:00:00 [place] [facility] PPSV23 (PNEUMOVAX) Branch Influenza High Dose 2018-05-08 Completed [facility] of 00:00:00 [facility] Pneumococcal 2018-05-08 Completed [facility] f Polysaccharide, 00:00:00 [place] [facility] PPSV23 (PNEUMOVAX) Branch Influenza High Dose 2018-05-08 Completed [facility] 00:00:00 [facility] Pneumococcal 2018-05-08 Completed [facility] Polysaccharide, 00:00:00 [place] [facility] PPSV23 (PNEUMOVAX) Branch Influenza High Dose 2018-05-08 Completed [facility] of 00:00:00 [facility] Pneumococcal 2018-05-08 Completed [facility] f Polysaccharide, 00:00:00 [place] [facility] PPSV23 (PNEUMOVAX) Branch Influenza High Dose 2018-05-08 Completed [facility] 00:00:00 [facility] Pneumococcal 2018-05-08 Completed [facility] f Polysaccharide, 00:00:00 [place] [facility] PPSV23 (PNEUMOVAX) Branch Influenza High Dose 2018-05-08 Completed [facility] 00:00:00 [facility] Pneumococcal 2018-05-08 Completed [facility] Polysaccharide, 00:00:00 [place] [facility] PPSV23 (PNEUMOVAX) Branch Influenza High Dose 2018-05-08 Completed [facility] 00:00:00 [facility] Pneumococcal 2018-05-08 Completed [facility] f Polysaccharide, 00:00:00 [place] [facility] PPSV23 (PNEUMOVAX) Branch Influenza High Dose 2018-05-08 Completed [facility] 00:00:00 [facility] Pneumococcal 2018-05-08 Completed [facility] f Polysaccharide, 00:00:00 [place] [facility] PPSV23 (PNEUMOVAX) Branch Influenza High Dose 2018-05-08 Completed [facility] 00:00:00 [facility] Pneumococcal 2018-05-08 Completed [facility] f Polysaccharide, 00:00:00 [place] [facility] PPSV23 (PNEUMOVAX) Branch Influenza High Dose 2018-05-08 Completed [facility] 00:00:00 [facility] Pneumococcal 2018-05-08 Completed [facility] f Polysaccharide, 00:00:00 [place] [facility] PPSV23 (PNEUMOVAX) Branch Influenza High Dose 2018-05-08 Completed [facility] 00:00:00 [facility] Pneumococcal 2018-05-08 Completed [facility] f Polysaccharide, 00:00:00 [place] [facility] PPSV23 (PNEUMOVAX) Branch Influenza High Dose 2018-05-08 Completed [facility] 00:00:00 [facility] Pneumococcal 2018-05-08 Completed [facility] f Polysaccharide, 00:00:00 [place] [facility] PPSV23 (PNEUMOVAX) Branch Influenza High Dose 2018-05-08 Completed [facility] 00:00:00 [facility] Pneumococcal 2018-05-08 Completed [facility] o f Polysaccharide, 00:00:00 [place] [facility] PPSV23 (PNEUMOVAX) Branch Influenza High Dose 2018-05-08 Completed [facility] 00:00:00 [facility] Pneumococcal 2018-05-08 Completed [facility] f Polysaccharide, 00:00:00 [place] [facility] PPSV23 (PNEUMOVAX) Branch Influenza High Dose 2018-05-08 Completed [facility] 00:00:00 [facility] Pneumococcal 2018-05-08 Completed [facility] f Polysaccharide, 00:00:00 [place] [facility] PPSV23 (PNEUMOVAX) Branch Influenza High Dose 2018-05-08 Completed [facility] 00:00:00 [facility] Pneumococcal 2018-05-08 Completed [facility] f Polysaccharide, 00:00:00 [place] [facility] PPSV23 (PNEUMOVAX) Branch Influenza High Dose 2018-05-08 Completed [facility] 00:00:00 [facility] Pneumococcal 2018-05-08 Completed [facility] o f Polysaccharide, 00:00:00 [place] [facility] PPSV23 (PNEUMOVAX) Branch Influenza High Dose 2018-05-08 Completed [facility] 00:00:00 [facility] Pneumococcal 2018-05-08 Completed [facility] o f Polysaccharide, 00:00:00 [place] [facility] PPSV23 (PNEUMOVAX) Branch Influenza High Dose 2018-05-08 Completed [facility] 00:00:00 [facility] Pneumococcal 2018-05-08 Completed [facility] o f Polysaccharide, 00:00:00 [place] [facility] PPSV23 (PNEUMOVAX) Branch Influenza High Dose 2018-05-08 Completed [facility] 00:00:00 [facility] Pneumococcal 2018-05-08 Completed [facility] o f Polysaccharide, 00:00:00 [place] [facility] PPSV23 (PNEUMOVAX) Branch Influenza High Dose 2018-05-08 Completed [facility] 00:00:00 [facility] Pneumococcal 2018-05-08 Completed [facility] o f Polysaccharide, 00:00:00 [place] [facility] PPSV23 (PNEUMOVAX) Branch Influenza High Dose 2018-05-08 Completed [facility] 00:00:00 [facility] Pneumococcal 2018-05-08 Completed [facility] o f Polysaccharide, 00:00:00 [place] [facility] PPSV23 (PNEUMOVAX) Branch Influenza High Dose 2018-05-08 Completed [facility] 00:00:00 [facility] Pneumococcal 2018-05-08 Completed [facility] f Polysaccharide, 00:00:00 [place] [facility] PPSV23 (PNEUMOVAX) Branch Influenza High Dose 2018-05-08 Completed [facility] 00:00:00 [facility] Pneumococcal 2018-05-08 Completed [facility] f Polysaccharide, 00:00:00 [place] [facility] PPSV23 (PNEUMOVAX) Branch Influenza High Dose 2018-05-08 Completed [facility] 00:00:00 [facility] Pneumococcal 2018-05-08 Completed [facility] f Polysaccharide, 00:00:00 [place] [facility] PPSV23 (PNEUMOVAX) Branch Influenza High Dose 2018-05-08 Completed [facility] 00:00:00 [facility] Pneumococcal 2018-05-08 Completed [facility] o f Polysaccharide, 00:00:00 [place] [facility] PPSV23 (PNEUMOVAX) Branch Influenza High Dose 2018-05-08 Completed [facility] 00:00:00 [facility] Pneumococcal 2018-05-08 Completed [facility] o f Polysaccharide, 00:00:00 [place] [facility] PPSV23 (PNEUMOVAX) Branch Influenza High Dose 2018-05-08 Completed [facility] 00:00:00 [facility] Pneumococcal 2018-05-08 Completed [facility] f Polysaccharide, 00:00:00 [place] [facility] PPSV23 (PNEUMOVAX) Branch Influenza High Dose 2018-05-08 Completed [facility] 00:00:00 [facility] Pneumococcal 2018-05-08 Completed [facility] o f Polysaccharide, 00:00:00 [place] [facility] PPSV23 (PNEUMOVAX) Branch Influenza High Dose 2018-05-08 Completed [facility] of 00:00:00 [facility] Pneumococcal 2018-05-08 Completed [facility] o f Polysaccharide, 00:00:00 [place] [facility] PPSV23 (PNEUMOVAX) Branch Influenza High Dose 2018-05-08 Completed [facility] 00:00:00 [facility] Pneumococcal 2018-05-08 Completed [facility] o f Polysaccharide, 00:00:00 [place] [facility] PPSV23 (PNEUMOVAX) Branch Influenza High Dose 2018-05-08 Completed [facility] 00:00:00 [facility] Pneumococcal 2018-05-08 Completed [facility] o f Polysaccharide, 00:00:00 [place] [facility] PPSV23 (PNEUMOVAX) Branch Influenza High Dose 2018-05-08 Completed [facility] 00:00:00 [facility] Pneumococcal 2018-05-08 Completed [facility] o f Polysaccharide, 00:00:00 [place] [facility] PPSV23 (PNEUMOVAX) Branch Pneumococcal 13 2016-12-05 Completed [facility]it [facility] Conjugate, PCV13 00:00:00 [place] [facility] (Prevnar 13) Branch Influenza High Dose 2016-12-05 Completed [facility] 00:00:00 [facility] Pneumococcal 13 2016-12-05 Completed [facility]it [facility] of Conjugate, PCV13 00:00:00 [place] [facility] (Prevnar 13) Branch Influenza High Dose 2016-12-05 Completed [facility] 00:00:00 [facility] Pneumococcal 13 2016-12-05 Completed [facility] Conjugate, PCV13 00:00:00 [place] [facility] (Prevnar 13) Branch Influenza High Dose 2016-12-05 Completed [facility] 00:00:00 [facility] Pneumococcal 13 2016-12-05 Completed [facility] of Conjugate, PCV13 00:00:00 [place] [facility] (Prevnar 13) Branch Influenza High Dose 2016-12-05 Completed [facility] 00:00:00 [facility] Pneumococcal 13 2016-12-05 Completed [facility] of Conjugate, PCV13 00:00:00 [place] [facility] (Prevnar 13) Branch Influenza High Dose 2016-12-05 Completed [facility] 00:00:00 [place] [facility] Pneumococcal 13 2016-12-05 Completed [facility]it [facility] of Conjugate, PCV13 00:00:00 [place] [facility] (Prevnar 13) Branch Influenza High Dose 2016-12-05 Completed [facility] 00:00:00 [facility] Pneumococcal 13 2016-12-05 Completed [facility]it [facility] of Conjugate, PCV13 00:00:00 [place] [facility] (Prevnar 13) Branch Influenza High Dose 2016-12-05 Completed [facility] 00:00:00 [facility] Pneumococcal 13 2016-12-05 Completed [facility] of Conjugate, PCV13 00:00:00 [place] [facility] (Prevnar 13) Branch Influenza High Dose 2016-12-05 Completed [facility] of 00:00:00 [facility] Pneumococcal 13 2016-12-05 Completed [facility] of Conjugate, PCV13 00:00:00 [place] [facility] (Prevnar 13) Branch Influenza High Dose 2016-12-05 Completed [facility] 00:00:00 [facility] Pneumococcal 13 2016-12-05 Completed [facility] of Conjugate, PCV13 00:00:00 [place] [facility] (Prevnar 13) Branch Influenza High Dose 2016-12-05 Completed [facility] of 00:00:00 [facility] Pneumococcal 13 2016-12-05 Completed [facility] of Conjugate, PCV13 00:00:00 [place] [facility] (Prevnar 13) Branch Influenza High Dose 2016-12-05 Completed [facility] 00:00:00 [facility] Pneumococcal 13 2016-12-05 Completed [facility] of Conjugate, PCV13 00:00:00 [place] [facility] (Prevnar 13) Branch Influenza High Dose 2016-12-05 Completed [facility] of 00:00:00 [facility] Pneumococcal 13 2016-12-05 Completed [facility] of Conjugate, PCV13 00:00:00 [place] [facility] (Prevnar 13) Branch Influenza High Dose 2016-12-05 Completed [facility] 00:00:00 [facility] Pneumococcal 13 2016-12-05 Completed [facility] of Conjugate, PCV13 00:00:00 [place] [facility] (Prevnar 13) Branch Influenza High Dose 2016-12-05 Completed [facility] 00:00:00 [facility] Pneumococcal 13 2016-12-05 Completed [facility] of Conjugate, PCV13 00:00:00 [place] [facility] (Prevnar 13) Branch Influenza High Dose 2016-12-05 Completed [facility] of 00:00:00 [facility] Pneumococcal 13 2016-12-05 Completed [facility] of Conjugate, PCV13 00:00:00 [place] [facility] (Prevnar 13) Branch Influenza High Dose 2016-12-05 Completed [facility] of 00:00:00 [facility] Pneumococcal 13 2016-12-05 Completed [facility] of Conjugate, PCV13 00:00:00 [place] [facility] (Prevnar 13) Branch Influenza High Dose 2016-12-05 Completed [facility] of 00:00:00 [facility] Pneumococcal 13 2016-12-05 Completed [facility] of Conjugate, PCV13 00:00:00 [place] [facility] (Prevnar 13) Branch Influenza High Dose 2016-12-05 Completed [facility] 00:00:00 [facility] Pneumococcal 13 2016-12-05 Completed [facility] of Conjugate, PCV13 00:00:00 [place] [facility] (Prevnar 13) Branch Influenza High Dose 2016-12-05 Completed [facility] 00:00:00 [facility] Pneumococcal 13 2016-12-05 Completed [facility] of Conjugate, PCV13 00:00:00 [place] [facility] (Prevnar 13) Branch Influenza High Dose 2016-12-05 Completed [facility] 00:00:00 [facility] Pneumococcal 13 2016-12-05 Completed [facility] of Conjugate, PCV13 00:00:00 [place] [facility] (Prevnar 13) Branch Influenza High Dose 2016-12-05 Completed [facility] of 00:00:00 [facility] Pneumococcal 13 2016-12-05 Completed [facility] of Conjugate, PCV13 00:00:00 [place] [facility] (Prevnar 13) Branch Influenza High Dose 2016-12-05 Completed [facility] of 00:00:00 [facility] Pneumococcal 13 2016-12-05 Completed [facility] of Conjugate, PCV13 00:00:00 [place] [facility] (Prevnar 13) Branch Influenza High Dose 2016-12-05 Completed [facility] 00:00:00 [facility] Pneumococcal 13 2016-12-05 Completed [facility] of Conjugate, PCV13 00:00:00 [place] [facility] (Prevnar 13) Branch Influenza High Dose 2016-12-05 Completed [facility] 00:00:00 [facility] Pneumococcal 13 2016-12-05 Completed [facility] of Conjugate, PCV13 00:00:00 [place] [facility] (Prevnar 13) Branch Influenza High Dose 2016-12-05 Completed [facility] of 00:00:00 [facility] Pneumococcal 13 2016-12-05 Completed [facility] of Conjugate, PCV13 00:00:00 [place] [facility] (Prevnar 13) Branch Influenza High Dose 2016-12-05 Completed [facility] of 00:00:00 [facility] Pneumococcal 13 2016-12-05 Completed [facility] of Conjugate, PCV13 00:00:00 [place] [facility] (Prevnar 13) Branch Influenza High Dose 2016-12-05 Completed [facility] 00:00:00 [facility] Pneumococcal 13 2016-12-05 Completed [facility] of Conjugate, PCV13 00:00:00 [place] [facility] (Prevnar 13) Branch Influenza High Dose 2016-12-05 Completed [facility] 00:00:00 [facility] Pneumococcal 13 2016-12-05 Completed [facility] of Conjugate, PCV13 00:00:00 [place] [facility] (Prevnar 13) Branch Influenza High Dose 2016-12-05 Completed [facility] of 00:00:00 [facility] Pneumococcal 13 2016-12-05 Completed [facility] of Conjugate, PCV13 00:00:00 [place] [facility] (Prevnar 13) Branch Influenza High Dose 2016-12-05 Completed [facility] of 00:00:00 [facility] Pneumococcal 13 2016-12-05 Completed [facility] of Conjugate, PCV13 00:00:00 [place] [facility] (Prevnar 13) Branch Influenza High Dose 2016-12-05 Completed [facility] 00:00:00 [facility] Pneumococcal 13 2016-12-05 Completed [facility] of Conjugate, PCV13 00:00:00 [place] [facility] (Prevnar 13) Branch Influenza High Dose 2016-12-05 Completed [facility] 00:00:00 [facility] Pneumococcal 13 2016-12-05 Completed [facility] of Conjugate, PCV13 00:00:00 [place] [facility] (Prevnar 13) Branch Influenza High Dose 2016-12-05 Completed [facility] 00:00:00 [facility] Pneumococcal 13 2016-12-05 Completed [facility] of Conjugate, PCV13 00:00:00 [place] [facility] (Prevnar 13) Branch Influenza High Dose 2016-12-05 Completed [facility] of 00:00:00 [facility] Pneumococcal 13 2016-12-05 Completed [facility] of Conjugate, PCV13 00:00:00 [place] [facility] (Prevnar 13) Branch Influenza High Dose 2016-12-05 Completed [facility] of 00:00:00 [facility] Pneumococcal 13 2016-12-05 Completed [facility] of Conjugate, PCV13 00:00:00 [place] [facility] (Prevnar 13) Branch Influenza High Dose 2016-12-05 Completed [facility] of 00:00:00 [facility] Pneumococcal 13 2016-12-05 Completed [facility] of Conjugate, PCV13 00:00:00 [place] [facility] (Prevnar 13) Branch Influenza High Dose 2016-12-05 Completed [facility] 00:00:00 [facility] Pneumococcal 13 2016-12-05 Completed [facility] of Conjugate, PCV13 00:00:00 [place] [facility] (Prevnar 13) Branch Influenza High Dose 2016-12-05 Completed [facility] of 00:00:00 [facility] Pneumococcal 13 2016-12-05 Completed [facility] of Conjugate, PCV13 00:00:00 [place] [facility] (Prevnar 13) Branch Influenza High Dose 2016-12-05 Completed [facility] of 00:00:00 [facility] Pneumococcal 13 2016-12-05 Completed [facility] of Conjugate, PCV13 00:00:00 [place] [facility] (Prevnar 13) Branch Influenza High Dose 2016-12-05 Completed [facility] of 00:00:00 [facility] Pneumococcal 13 2016-12-05 Completed [facility] of Conjugate, PCV13 00:00:00 [place] [facility] (Prevnar 13) Branch Influenza High Dose 2016-12-05 Completed [facility] of 00:00:00 [facility] Pneumococcal 13 2016-12-05 Completed [facility] of Conjugate, PCV13 00:00:00 [place] [facility] (Prevnar 13) Branch Influenza High Dose 2016-12-05 Completed [facility] 00:00:00 [facility] Pneumococcal 13 2016-12-05 Completed [facility] of Conjugate, PCV13 00:00:00 [place] [facility] (Prevnar 13) Branch Influenza High Dose 2016-12-05 Completed [facility] of 00:00:00 [facility] Pneumococcal 13 2016-12-05 Completed [facility] of Conjugate, PCV13 00:00:00 [place] [facility] (Prevnar 13) Branch Influenza High Dose 2016-12-05 Completed [facility] of 00:00:00 [facility] Pneumococcal 13 2016-12-05 Completed [facility] of Conjugate, PCV13 00:00:00 [place] [facility] (Prevnar 13) Branch Influenza High Dose 2016-12-05 Completed [facility] 00:00:00 [facility] Pneumococcal 13 2016-12-05 Completed [facility] of Conjugate, PCV13 00:00:00 [place] [facility] (Prevnar 13) Branch Influenza High Dose 2016-12-05 Completed [facility] 00:00:00 [facility] Pneumococcal 13 2016-12-05 Completed [facility] of Conjugate, PCV13 00:00:00 [place] [facility] (Prevnar 13) Branch Influenza High Dose 2016-12-05 Completed [facility] 00:00:00 [facility] Pneumococcal 13 2016-12-05 Completed [facility] of Conjugate, PCV13 00:00:00 [place] [facility] (Prevnar 13) Branch Influenza High Dose 2016-12-05 Completed [facility] 00:00:00 [facility] Pneumococcal 13 2016-12-05 Completed [facility] of Conjugate, PCV13 00:00:00 [place] [facility] (Prevnar 13) Branch Influenza High Dose 2016-12-05 Completed [facility] 00:00:00 [facility] Pneumococcal 13 2016-12-05 Completed [facility] of Conjugate, PCV13 00:00:00 [place] [facility] (Prevnar 13) Branch Influenza High Dose 2016-12-05 Completed [facility] 00:00:00 [facility] Pneumococcal 13 2016-12-05 Completed [facility] of Conjugate, PCV13 00:00:00 [place] [facility] (Prevnar 13) Branch Influenza High Dose 2016-12-05 Completed [facility] 00:00:00 [facility] Pneumococcal 13 2016-12-05 Completed [facility] of Conjugate, PCV13 00:00:00 [place] [facility] (Prevnar 13) Branch Influenza High Dose 2016-12-05 Completed [facility] 00:00:00 [facility] Pneumococcal 13 2016-12-05 Completed [facility] Conjugate, PCV13 00:00:00 [place] [facility] (Prevnar 13) Branch Influenza High Dose 2016-12-05 Completed [facility] 00:00:00 [facility] Pneumococcal 13 2016-12-05 Completed [facility] of Conjugate, PCV13 00:00:00 [place] [facility] (Prevnar 13) Branch Influenza High Dose 2016-12-05 Completed [facility] of 00:00:00 [facility] Pneumococcal 13 2016-12-05 Completed [facility] of Conjugate, PCV13 00:00:00 [place] [facility] (Prevnar 13) Branch Influenza High Dose 2016-12-05 Completed [facility] of 00:00:00 [facility] Pneumococcal 13 2016-12-05 Completed [facility] of Conjugate, PCV13 00:00:00 [place] [facility] (Prevnar 13) Branch Influenza High Dose 2016-12-05 Completed [facility] 00:00:00 [facility] Pneumococcal 13 2016-12-05 Completed [facility] of Conjugate, PCV13 00:00:00 [place] [facility] (Prevnar 13) Branch Influenza High Dose 2016-12-05 Completed [facility] of 00:00:00 [facility] Pneumococcal 13 2016-12-05 Completed [facility] of Conjugate, PCV13 00:00:00 [place] [facility] (Prevnar 13) Branch Influenza High Dose 2016-12-05 Completed [facility] of 00:00:00 [facility] Pneumococcal 13 2016-12-05 Completed [facility] of Conjugate, PCV13 00:00:00 [place] [facility] (Prevnar 13) Branch Influenza High Dose 2016-12-05 Completed [facility] 00:00:00 [facility] Pneumococcal 13 2016-12-05 Completed [facility] of Conjugate, PCV13 00:00:00 [place] [facility] (Prevnar 13) Branch Influenza High Dose 2016-12-05 Completed [facility] of 00:00:00 [facility] Pneumococcal 13 2016-12-05 Completed [facility] of Conjugate, PCV13 00:00:00 [place] [facility] (Prevnar 13) Branch Influenza High Dose 2016-12-05 Completed [facility] 00:00:00 [facility] Pneumococcal 13 2016-12-05 Completed [facility] of Conjugate, PCV13 00:00:00 [place] [facility] (Prevnar 13) Branch Influenza High Dose 2016-12-05 Completed [facility] of 00:00:00 [facility] Pneumococcal 13 2016-12-05 Completed [facility] of Conjugate, PCV13 00:00:00 [place] [facility] (Prevnar 13) Branch Influenza High Dose 2016-12-05 Completed [facility] of 00:00:00 [facility] Pneumococcal 13 2016-12-05 Completed [facility] of Conjugate, PCV13 00:00:00 [place] [facility] (Prevnar 13) Branch Influenza High Dose 2016-12-05 Completed [facility] of 00:00:00 [facility] Pneumococcal 13 2016-12-05 Completed [facility] of Conjugate, PCV13 00:00:00 [place] [facility] (Prevnar 13) Branch Influenza High Dose 2016-12-05 Completed [facility] of 00:00:00 [facility] Pneumococcal 13 2016-12-05 Completed [facility] of Conjugate, PCV13 00:00:00 [place] [facility] (Prevnar 13) Branch Influenza High Dose 2016-12-05 Completed [facility] of 00:00:00 [facility] Pneumococcal 13 2016-12-05 Completed [facility] of Conjugate, PCV13 00:00:00 [place] [facility] (Prevnar 13) Branch Influenza High Dose 2016-12-05 Completed [facility] of 00:00:00 [facility] Pneumococcal 13 2016-12-05 Completed [facility] of Conjugate, PCV13 00:00:00 [place] [facility] (Prevnar 13) Branch Influenza High Dose 2016-12-05 Completed [facility] of 00:00:00 [facility] Pneumococcal 13 2016-12-05 Completed [facility] of Conjugate, PCV13 00:00:00 [place] [facility] (Prevnar 13) Branch Influenza High Dose 2016-12-05 Completed [facility] of 00:00:00 [facility] Pneumococcal 13 2016-12-05 Completed [facility] of Conjugate, PCV13 00:00:00 [place] [facility] (Prevnar 13) Branch Influenza High Dose 2016-12-05 Completed [facility] of 00:00:00 [facility] Pneumococcal 13 2016-12-05 Completed [facility] of Conjugate, PCV13 00:00:00 [place] [facility] (Prevnar 13) Branch Influenza High Dose 2016-12-05 Completed [facility] 00:00:00 [facility] Pneumococcal 13 2016-12-05 Completed [facility] of Conjugate, PCV13 00:00:00 [place] [facility] (Prevnar 13) Branch Influenza High Dose 2016-12-05 Completed [facility] of 00:00:00 [facility] Pneumococcal 13 2016-12-05 Completed [facility] of Conjugate, PCV13 00:00:00 [place] [facility] (Prevnar 13) Branch Influenza High Dose 2016-12-05 Completed [facility] of 00:00:00 [facility] Pneumococcal 13 2016-12-05 Completed [facility] of Conjugate, PCV13 00:00:00 [place] [facility] (Prevnar 13) Branch Influenza High Dose 2016-12-05 Completed [facility] of 00:00:00 [facility] Pneumococcal 13 2016-12-05 Completed [facility] of Conjugate, PCV13 00:00:00 [place] [facility] (Prevnar 13) Branch Influenza High Dose 2016-12-05 Completed [facility] 00:00:00 [facility] Pneumococcal 13 2016-12-05 Completed [facility] of Conjugate, PCV13 00:00:00 [place] [facility] (Prevnar 13) Branch Influenza High Dose 2016-12-05 Completed [facility] 00:00:00 [facility] Pneumococcal 13 2016-12-05 Completed [facility] of Conjugate, PCV13 00:00:00 [place] [facility] (Prevnar 13) Branch Influenza High Dose 2016-12-05 Completed [facility] 00:00:00 [facility] Pneumococcal 13 2016-12-05 Completed [facility] of Conjugate, PCV13 00:00:00 [place] [facility] (Prevnar 13) Branch Influenza High Dose 2016-12-05 Completed [facility] 00:00:00 [facility] Pneumococcal 13 2016-12-05 Completed [facility] of Conjugate, PCV13 00:00:00 [place] [facility] (Prevnar 13) Branch Influenza High Dose 2016-12-05 Completed [facility] 00:00:00 [facility] Pneumococcal 13 2016-12-05 Completed [facility] of Conjugate, PCV13 00:00:00 [place] [facility] (Prevnar 13) Branch Influenza High Dose 2016-12-05 Completed [facility] of 00:00:00 [facility] Pneumococcal 13 2016-12-05 Completed [facility] of Conjugate, PCV13 00:00:00 [place] [facility] (Prevnar 13) Branch Influenza High Dose 2016-12-05 Completed [facility] 00:00:00 [facility] Pneumococcal 13 2016-12-05 Completed [facility] of Conjugate, PCV13 00:00:00 [place] [facility] (Prevnar 13) Branch Influenza High Dose 2016-12-05 Completed [facility] of 00:00:00 [facility] Pneumococcal 13 2016-12-05 Completed [facility] Conjugate, PCV13 00:00:00 [place] [facility] (Prevnar 13) Branch Influenza High Dose 2016-12-05 Completed [facility] of 00:00:00 [facility] Pneumococcal 13 2016-12-05 Completed [facility] of Conjugate, PCV13 00:00:00 [place] [facility] (Prevnar 13) Branch Influenza High Dose 2016-12-05 Completed [facility] of 00:00:00 [facility] Pneumococcal 13 2016-12-05 Completed [facility] of Conjugate, PCV13 00:00:00 [place] [facility] (Prevnar 13) Branch Influenza High Dose 2016-12-05 Completed [facility] of 00:00:00 [facility] Pneumococcal 13 2016-12-05 Completed [facility]it [facility] of Conjugate, PCV13 00:00:00 [place] [facility] (Prevnar 13) Branch Influenza High Dose 2016-12-05 Completed [facility] of 00:00:00 [facility] Pneumococcal 13 2016-12-05 Completed [facility]it [facility] of Conjugate, PCV13 00:00:00 [place] [facility] (Prevnar 13) Branch Influenza High Dose 2016-12-05 Completed [facility] of 00:00:00 [facility] Pneumococcal 13 2016-12-05 Completed [facility] of Conjugate, PCV13 00:00:00 [place] [facility] (Prevnar 13) Branch Influenza High Dose 2016-12-05 Completed [facility] of 00:00:00 [facility] Pneumococcal 13 2016-12-05 Completed [facility] of Conjugate, PCV13 00:00:00 [place] [facility] (Prevnar 13) Branch Influenza High Dose 2016-12-05 Completed [facility] of 00:00:00 [facility] Pneumococcal 13 2016-12-05 Completed [facility]it [facility] of Conjugate, PCV13 00:00:00 [place] [facility] (Prevnar 13) Branch Influenza High Dose 2016-12-05 Completed [facility] of 00:00:00 [facility] Pneumococcal 13 2016-12-05 Completed [facility] of Conjugate, PCV13 00:00:00 [place] [facility] (Prevnar 13) Branch Influenza High Dose 2016-12-05 Completed [facility] of 00:00:00 [facility] Pneumococcal 13 2016-12-05 Completed [facility] of Conjugate, PCV13 00:00:00 [place] [facility] (Prevnar 13) Branch Influenza High Dose 2016-12-05 Completed [facility] of 00:00:00 [facility] Pneumococcal 13 2016-12-05 Completed [facility] of Conjugate, PCV13 00:00:00 [place] [facility] (Prevnar 13) Branch Influenza High Dose 2016-12-05 Completed [facility] of 00:00:00 [facility] Pneumococcal 13 2016-12-05 Completed [facility] of Conjugate, PCV13 00:00:00 [place] [facility] (Prevnar 13) Branch Influenza High Dose 2016-12-05 Completed [facility] 00:00:00 [facility] Pneumococcal 13 2016-12-05 Completed [facility] of Conjugate, PCV13 00:00:00 [place] [facility] (Prevnar 13) Branch Influenza High Dose 2016-12-05 Completed [facility] of 00:00:00 [facility] Pneumococcal 13 2016-12-05 Completed [facility] of Conjugate, PCV13 00:00:00 [place] [facility] (Prevnar 13) Branch Influenza High Dose 2016-12-05 Completed [facility] of 00:00:00 [facility] Pneumococcal 13 2016-12-05 Completed [facility] of Conjugate, PCV13 00:00:00 [place] [facility] (Prevnar 13) Branch Influenza High Dose 2016-12-05 Completed [facility] of 00:00:00 [facility] Pneumococcal 13 2016-12-05 Completed [facility] of Conjugate, PCV13 00:00:00 [place] [facility] (Prevnar 13) Branch Influenza High Dose 2016-12-05 Completed [facility] 00:00:00 [facility] Pneumococcal 13 2016-12-05 Completed [facility] of Conjugate, PCV13 00:00:00 [place] [facility] (Prevnar 13) Branch Influenza High Dose 2016-12-05 Completed [facility] of 00:00:00 [facility] Pneumococcal 13 2016-12-05 Completed [facility] of Conjugate, PCV13 00:00:00 [place] [facility] (Prevnar 13) Branch Influenza High Dose 2016-12-05 Completed [facility] of 00:00:00 [facility] Pneumococcal 13 2016-12-05 Completed [facility] of Conjugate, PCV13 00:00:00 [place] [facility] (Prevnar 13) Branch Influenza High Dose 2016-12-05 Completed [facility] of 00:00:00 [facility] Pneumococcal 13 2016-12-05 Completed [facility] of Conjugate, PCV13 00:00:00 [place] [facility] (Prevnar 13) Branch Influenza High Dose 2016-12-05 Completed [facility] of 00:00:00 [facility] Pneumococcal 13 2016-12-05 Completed [facility] of Conjugate, PCV13 00:00:00 [place] [facility] (Prevnar 13) Branch Influenza High Dose 2016-12-05 Completed [facility] of 00:00:00 [facility] Pneumococcal 13 2016-12-05 Completed [facility] of Conjugate, PCV13 00:00:00 [place] [facility] (Prevnar 13) Branch Influenza High Dose 2016-12-05 Completed [facility] of 00:00:00 [facility] Pneumococcal 13 2016-12-05 Completed [facility] of Conjugate, PCV13 00:00:00 [place] [facility] (Prevnar 13) Branch Influenza High Dose 2016-12-05 Completed [facility] of 00:00:00 [facility] Pneumococcal 13 2016-12-05 Completed [facility] of Conjugate, PCV13 00:00:00 [place] [facility] (Prevnar 13) Branch Influenza High Dose 2016-12-05 Completed [facility] of 00:00:00 [facility] Pneumococcal 13 2016-12-05 Completed [facility] of Conjugate, PCV13 00:00:00 [place] [facility] (Prevnar 13) Branch Influenza High Dose 2016-12-05 Completed [facility] of 00:00:00 [facility] Pneumococcal 13 2016-12-05 Completed [facility] of Conjugate, PCV13 00:00:00 [place] [facility] (Prevnar 13) Branch Influenza High Dose 2016-12-05 Completed [facility] of 00:00:00 [facility] Pneumococcal 13 2016-12-05 Completed [facility] of Conjugate, PCV13 00:00:00 [place] [facility] (Prevnar 13) Branch Influenza High Dose 2016-12-05 Completed [facility] of 00:00:00 [facility] Pneumococcal 13 2016-12-05 Completed [facility] of Conjugate, PCV13 00:00:00 [place] [facility] (Prevnar 13) Branch Influenza High Dose 2016-12-05 Completed [facility] of 00:00:00 [facility] Pneumococcal 13 2016-12-05 Completed [facility] of Conjugate, PCV13 00:00:00 [place] [facility] (Prevnar 13) Branch Influenza High Dose 2016-12-05 Completed [facility] of 00:00:00 [facility] Pneumococcal 13 2016-12-05 Completed [facility] of Conjugate, PCV13 00:00:00 [place] [facility] (Prevnar 13) Branch Influenza High Dose 2016-12-05 Completed [facility] of 00:00:00 [facility] Pneumococcal 13 2016-12-05 Completed [facility] of Conjugate, PCV13 00:00:00 [place] [facility] (Prevnar 13) Branch Influenza High Dose 2016-12-05 Completed [facility] of 00:00:00 [facility] Pneumococcal 13 2016-12-05 Completed [facility] of Conjugate, PCV13 00:00:00 [place] [facility] (Prevnar 13) Branch Influenza High Dose 2016-12-05 Completed [facility] of 00:00:00 [facility] Pneumococcal 13 2016-12-05 Completed [facility] of Conjugate, PCV13 00:00:00 [place] [facility] (Prevnar 13) Branch Influenza High Dose 2016-12-05 Completed [facility] of 00:00:00 [facility] Pneumococcal 13 2016-12-05 Completed [facility] of Conjugate, PCV13 00:00:00 [place] [facility] (Prevnar 13) Branch Influenza High Dose 2016-12-05 Completed [facility] of 00:00:00 [facility] Pneumococcal 13 2016-12-05 Completed [facility] of Conjugate, PCV13 00:00:00 [place] [facility] (Prevnar 13) Branch Influenza High Dose 2016-12-05 Completed [facility] of 00:00:00 [facility] Pneumococcal 13 2016-12-05 Completed [facility] of Conjugate, PCV13 00:00:00 [place] [facility] (Prevnar 13) Branch Influenza High Dose 2016-12-05 Completed [facility] of 00:00:00 [facility] Pneumococcal 13 2016-12-05 Completed [facility]it y of Conjugate, PCV13 00:00:00 [facility] dical (Prevnar 13) Branch Influenza High Dose 2016-12-05 Completed [facility] of 00:00:00 [facility] influenza virus 2015-01-20 Completed [facility] vaccine, 21:59:00 inactivated influenza virus 2015-01-20 Completed [facility], 21:59:00 inactivated influenza virus 2015-01-20 Completed [facility] vaccine, 21:59:00 inactivated influenza virus 2015-01-20 Completed [facility] vaccine, 21:59:00 inactivated influenza virus 2015-01-20 Completed [...] inactivated<sup>2</ sup> influenza virus 2012-12-29 Completed [facility] vaccine, 05:00:00 inactivated<sup>1</ sup> influenza virus 2012-12-29 Completed [facility] vaccine, 05:00:00 inactivated<sup>2</ sup> influenza virus 2012-12-29 Completed [facility] vaccine, 05:00:00 inactivated<sup>1</ sup> influenza virus 2012-12-29 Completed [facility] vaccine, 05:00:00 inactivated<sup>2</ sup> influenza virus 2012-12-29 Completed [facility] vaccine, 05:00:00 inactivated<sup>2</ sup> influenza virus 2012-12-29 Completed [facility] vaccine, 05:00:00 inactivated<sup>1</ sup> influenza virus 2012-12-29 Completed [facility] vaccine, 05:00:00 inactivated<sup>2</ sup> influenza virus 2012-12-29 Completed [facility] vaccine, 05:00:00 inactivated<sup>1</ sup> influenza virus 2012-12-29 Completed [facility] vaccine, 05:00:00 inactivated<sup>1</ sup> pneumococcal 2011-11-23 Completed [facility] 23-valent 14:50:54 vaccine<sup>3</sup> pneumococcal 2011-11-23 Completed [facility] ahn 23-valent 14:50:54 vaccine<sup>3</sup> pneumococcal 2011-11-23 Completed [facility] 23-valent 14:50:54 vaccine<sup>3</sup> pneumococcal 2011-11-23 Completed [facility] 23-valent 14:50:54 vaccine<sup>3</sup> pneumococcal 2011-11-23 Completed [facility] 23-valent 14:50:54 vaccine<sup>3</sup> influenza virus Unknown Completed [facility] vaccine, inactivated Hx influenza Unknown Completed [facility] vaccine-unspecified <sup>1</sup> Hx influenza Unknown Completed [facility] ahn vaccine-unspecified <sup>2</sup> influenza virus Unknown Completed [facility] vaccine, inactivated<sup>2</ sup> influenza virus Unknown Completed [facility] vaccine, inactivated<sup>1</ sup> pneumococcal Unknown Completed [facility] 23-valent vaccine<sup>3</sup> Pneumococcal 13 Unknown Completed [facility]it [facility] of Conjugate, PCV13 [facility] [place] [facility] dical (Prevnar 13) Branch Influenza High Dose Unknown Completed [facility]ive [facility]ity of [facility] Influenza High Dose Unknown Completed Unive rsity [facility] Pneumococcal Unknown Completed [place] o Polysaccharide, [place] [facility] PPSV23 (PNEUMOVAX) Branch Influenza High Dose Unknown Completed [facility]ive [facility]ity of [facility] Influenza High Dose Unknown Completed [facility] of [facility] Branch SARS-COV-2 COVID-19 Unknown Completed [facility]ive [facility]ity of PFIZER VACCINE [facility] Branch SARS-COV-2 COVID-19 Unknown Completed [facility]ive [facility]ity of PFIZER VACCINE [facility] Branch Influenza Virus Unknown Completed [facility] of Vaccine [facility] Influenza Virus Unknown Completed [facility] Vaccine,quad [place] [facility] Branch 65+ (FLUAD) Pneumococcal 13 Unknown Completed [facility] of Conjugate, PCV13 [place] [facility] (Prevnar 13) Branch Influenza High Dose Unknown Completed [facility]ity of [facility] Influenza High Dose Unknown Completed [facility] of [facility] Pneumococcal Unknown Completed [facility] o f Polysaccharide, [place] [facility] PPSV23 (PNEUMOVAX) Branch Influenza High Dose Unknown Completed [facility] of [facility] Influenza High Dose Unknown Completed [facility] of [facility] Branch SARS-COV-2 COVID-19 Unknown Completed [facility]ity of PFIZER VACCINE [facility] Branch SARS-COV-2 COVID-19 Unknown Completed [facility] of PFIZER VACCINE [facility] Branch Influenza Virus Unknown Completed [facility] of Vaccine [facility] Influenza Virus Unknown Completed [facility] Vaccine,quad [place] [facility] Branch 65+ (FLUAD) Pneumococcal 13 Unknown Completed [facility] of Conjugate, PCV13 [place] [facility] (Prevnar 13) Branch Influenza High Dose Unknown Completed [facility]ive rsity of [facility] Influenza High Dose Unknown Completed [facility] of [facility] Pneumococcal Unknown Completed University o f Polysaccharide, [place] [facility] PPSV23 (PNEUMOVAX) Branch Influenza High Dose Unknown Completed [facility] of [facility] Branch Influenza High Dose Unknown Completed [facility] SARS-COV-2 COVID-19 Unknown Completed [facility]ive rsity of PFIZER VACCINE [facility] Branch SARS-COV-2 COVID-19 Unknown Completed [facility]ive rsity of PFIZER VACCINE [facility] Branch Influenza Virus Unknown Completed [facility] y of Vaccine [facility] Branch Influenza Virus Unknown Completed [facility] Vaccine,quad [place] [facility] 65+ (FLUAD) Pneumococcal 13 Unknown Completed [facility] of Conjugate, PCV13 [place] [facility] (Prevnar 13) Branch Influenza High Dose Unknown Completed [facility] Influenza High Dose Unknown Completed [facility] of [facility] Pneumococcal Unknown Completed [facility] o f Polysaccharide, [place] [facility] PPSV23 (PNEUMOVAX) Branch Influenza High Dose Unknown Completed [facility] of [facility] Branch Influenza High Dose Unknown Completed [facility] of [facility] Branch SARS-COV-2 COVID-19 Unknown Completed Unive [facility]ity of PFIZER VACCINE [facility] Branch SARS-COV-2 COVID-19 Unknown Completed [facility]ive rsity of PFIZER VACCINE [facility] Branch Influenza Virus Unknown Completed [facility] Vaccine [facility] Influenza Virus Unknown Completed [facility] Vaccine,quad [place] [facility]preserve Free Branch 65+ (FLUAD) Pneumococcal 13 Unknown Completed [facility] of Conjugate, PCV13 [place] [facility] (Prevnar 13) Branch Influenza High Dose Unknown Completed [facility] of [facility] Influenza High Dose Unknown Completed [facility] of [facility] Pneumococcal Unknown Completed [facility] o f Polysaccharide, [place] [facility] PPSV23 (PNEUMOVAX) Branch Influenza High Dose Unknown Completed [facility] of [facility] Branch Influenza High Dose Unknown Completed [facility] of [facility] Branch SARS-COV-2 COVID-19 Unknown Completed [facility] rsity of PFIZER VACCINE [facility] Branch SARS-COV-2 COVID-19 Unknown Completed [facility]ive rsity of PFIZER VACCINE [facility] Branch Influenza Virus Unknown Completed [facility]it y of Vaccine [facility] Branch Influenza Virus Unknown Completed [facility] Vaccine,quad [place] [facility]preserve [facility] Branch 65+ (FLUAD) Pneumococcal 13 Unknown Completed [facility] of Conjugate, PCV13 [place] [facility] (Prevnar 13) Branch Influenza High Dose Unknown Completed [facility] of [facility] Influenza High Dose Unknown Completed [facility] of [facility] Pneumococcal Unknown Completed [facility] o f Polysaccharide, [place] [facility] PPSV23 (PNEUMOVAX) Branch Influenza High Dose Unknown Completed [facility] of [facility] Branch Influenza High Dose Unknown Completed [facility] of [facility] Branch SARS-COV-2 COVID-19 Unknown Completed [facility]ity of PFIZER VACCINE [facility] Branch SARS-COV-2 COVID-19 Unknown Completed [facility]ive rsity of PFIZER VACCINE [facility] Branch Influenza Virus Unknown Completed [facility] Vaccine [facility] Influenza Virus Unknown Completed [facility] Vaccine,quad [place] [facility]preserve [facility] 65+ (FLUAD) Pneumococcal 13 Unknown Completed [facility] of Conjugate, PCV13 [place] [facility] (Prevnar 13) Branch Influenza High Dose Unknown Completed [facility] Influenza High Dose Unknown Completed [facility] of [facility] Pneumococcal Unknown Completed [facility] o f Polysaccharide, [place] [facility] PPSV23 (PNEUMOVAX) Branch Influenza High Dose Unknown Completed [facility] of [facility] Branch Influenza High Dose Unknown Completed [facility] of [facility] Branch SARS-COV-2 COVID-19 Unknown Completed [facility]ive rsity of PFIZER VACCINE [facility] Branch SARS-COV-2 COVID-19 Unknown Completed [facility]ive rsity of PFIZER VACCINE [facility] Branch Influenza Virus Unknown Completed [facility]it y of Vaccine [facility] Influenza Virus Unknown Completed [facility] of Vaccine,quad [place] [facility] Branch 65+ (FLUAD) Pneumococcal 13 Unknown Completed [facility] of Conjugate, PCV13 [place] [facility] (Prevnar 13) Branch Influenza High Dose Unknown Completed [facility] rsity of [facility] Influenza High Dose Unknown Completed [facility]ive [facility] of [facility] Pneumococcal Unknown Completed [facility] o f Polysaccharide, [place] [facility] PPSV23 (PNEUMOVAX) Branch Influenza High Dose Unknown Completed [facility] of [facility] Branch Influenza High Dose Unknown Completed [facility] of [facility] Branch SARS-COV-2 COVID-19 Unknown Completed [facility]ive rsity of PFIZER VACCINE [facility] Branch SARS-COV-2 COVID-19 Unknown Completed [facility]ive rsity of PFIZER VACCINE [facility] Branch Influenza Virus Unknown Completed [facility]it y of Vaccine [facility] Influenza Virus Unknown Completed [facility] of Vaccine,quad [place] [facility],preserve Free Branch 65+ (FLUAD) Pneumococcal 13 Unknown Completed [facility] of Conjugate, PCV13 [place] [facility] (Prevnar 13) Branch Influenza High Dose Unknown Completed [facility] of [facility] Influenza High Dose Unknown Completed [facility] of [facility] Pneumococcal Unknown Completed [facility] o f Polysaccharide, [place] [facility] PPSV23 (PNEUMOVAX) Branch Influenza High Dose Unknown Completed [facility] of [facility] Branch Influenza High Dose Unknown Completed [facility] of [facility] Branch SARS-COV-2 COVID-19 Unknown Completed [facility]ive rsity of PFIZER VACCINE [facility] Branch SARS-COV-2 COVID-19 Unknown Completed [facility]ive rsity of PFIZER VACCINE [facility] Branch Influenza Virus Unknown Completed [facility] Vaccine [facility] Influenza Virus Unknown Completed [facility] of Vaccine,quad [place] [facility]preserve [facility] Branch 65+ (FLUAD) Pneumococcal 13 Unknown Completed [facility] of Conjugate, PCV13 [place] [facility] (Prevnar 13) Branch Influenza High Dose Unknown Completed [facility] of [facility] Influenza High Dose Unknown Completed [facility] of [facility] Pneumococcal Unknown Completed [facility] o f Polysaccharide, [place] [facility] PPSV23 (PNEUMOVAX) Branch Influenza High Dose Unknown Completed [facility] of [facility] Branch Influenza High Dose Unknown Completed [facility] of [facility] SARS-COV-2 COVID-19 Unknown Completed [facility]ive rsity of PFIZER VACCINE [facility] Branch SARS-COV-2 COVID-19 Unknown Completed [facility]ive rsity of PFIZER VACCINE [facility] Branch Influenza Virus Unknown Completed [facility] y of Vaccine [facility] Influenza Virus Unknown Completed [facility] y of Vaccine,quad [place] [facility],preserve Free Branch 65+ (FLUAD) Pneumococcal 13 Unknown Completed [facility] of Conjugate, PCV13 [place] [facility] (Prevnar 13) Branch Influenza High Dose Unknown Completed [facility]ity of [facility] Branch Influenza High Dose Unknown Completed [facility]ive rsity of [facility] Pneumococcal Unknown Completed [facility] o f Polysaccharide, [place] [facility] PPSV23 (PNEUMOVAX) Branch Influenza High Dose Unknown Completed [facility]ity of [facility] Branch Influenza High Dose Unknown Completed [facility] SARS-COV-2 COVID-19 Unknown Completed [facility]ive rsity of PFIZER VACCINE [facility] Branch SARS-COV-2 COVID-19 Unknown Completed [facility]ive rsity of PFIZER VACCINE [facility] Branch Influenza Virus Unknown Completed [facility]it y of Vaccine [facility] Influenza Virus Unknown Completed [facility] of Vaccine,quad [place] [facility],preserve Free Branch 65+ (FLUAD) Pneumococcal 13 Unknown Completed [facility] of Conjugate, PCV13 [place] [facility] (Prevnar 13) Branch Influenza High Dose Unknown Completed [facility]ity of [facility] Influenza High Dose Unknown Completed [facility] of [facility] Pneumococcal Unknown Completed [facility] o f Polysaccharide, [place] [facility] PPSV23 (PNEUMOVAX) Branch Influenza High Dose Unknown Completed [facility] of [facility] Branch Influenza High Dose Unknown Completed [facility] of [facility] SARS-COV-2 COVID-19 Unknown Completed [facility]ER VACCINE [place] [facility] SARS-COV-2 COVID-19 Unknown Completed [facility] of PFIZER VACCINE [facility] Branch Influenza Virus Unknown Completed [facility] of Vaccine [facility] Pneumococcal 13 Unknown Completed [facility] of Conjugate, PCV13 [place] [facility] (Prevnar 13) Branch Influenza High Dose Unknown Completed [facility] of [facility] Influenza High Dose Unknown Completed [facility] of [facility] Pneumococcal Unknown Completed [facility] o f Polysaccharide, [place] [facility] PPSV23 (PNEUMOVAX) Branch Influenza High Dose Unknown Completed [facility] of [facility] Branch Influenza High Dose Unknown Completed [facility] SARS-COV-2 COVID-19 Unknown Completed [facility]ive rsity of PFIZER VACCINE [facility] Branch SARS-COV-2 COVID-19 Unknown Completed [facility]ive rsity of PFIZER VACCINE [facility] Branch Influenza Virus Unknown Completed [facility]it y of Vaccine [facility] Pneumococcal 13 Unknown Completed [facility]it y of Conjugate, PCV13 [facility] [place] [facility] dical (Prevnar 13) Branch Influenza High Dose Unknown Completed [facility]ive rsity of [facility] Branch Influenza High Dose Unknown Completed [facility]ive rs[facility] of [facility] Pneumococcal Unknown Completed [facility] o f Polysaccharide, [place] [facility] PPSV23 (PNEUMOVAX) Branch Influenza High Dose Unknown Completed [facility] of [facility] Branch Influenza High Dose Unknown Completed [facility] SARS-COV-2 COVID-19 Unknown Completed [facility]ive rsity of PFIZER VACCINE [facility] Branch SARS-COV-2 COVID-19 Unknown Completed [facility]ive rsity of PFIZER VACCINE [facility] Branch Influenza Virus Unknown Completed [facility]it y of Vaccine [facility] Pneumococcal 13 Unknown Completed [facility]it y of Conjugate, PCV13 [facility] dical (Prevnar 13) Branch Influenza High Dose Unknown Completed [facility]ity of [facility] Influenza High Dose Unknown Completed [facility] of [facility] Pneumococcal Unknown Completed [facility] o f Polysaccharide, [place] [facility] PPSV23 (PNEUMOVAX) Branch Influenza High Dose Unknown Completed [facility] Influenza High Dose Unknown Completed [facility] [place] [facility] [place] SARS-COV-2 COVID-19 Unknown Completed Unive rsity of PFIZER VACCINE [facility] Branch SARS-COV-2 COVID-19 Unknown Completed Unive rsity of PFIZER VACCINE [facility] Influenza Virus Unknown Completed Universit y of Vaccine [facility] Pneumococcal 13 Unknown Completed Universit y of Conjugate, PCV13 [place] [facility] (Prevnar 13) Branch Influenza High Dose Unknown Completed Unive rsity of [facility] Influenza High Dose Unknown Completed Unive rsity of [facility] Pneumococcal Unknown Completed University o f Polysaccharide, [place] [facility] PPSV23 (PNEUMOVAX) Branch Influenza High Dose Unknown Completed Unive rsity of [facility] Influenza High Dose Unknown Completed Unive rsity of [facility] SARS-COV-2 COVID-19 Unknown Completed Unive rsity of PFIZER VACCINE [facility] Branch SARS-COV-2 COVID-19 Unknown Completed Unive rsity of PFIZER VACCINE [facility] Influenza Virus Unknown Completed Universit y of Vaccine [facility] Pneumococcal 13 Unknown Completed Universit y of Conjugate, PCV13 [place] [facility] (Prevnar 13) Branch Influenza High Dose Unknown Completed Unive rsity of [facility] Influenza High Dose Unknown Completed Unive rsity of [facility] Pneumococcal Unknown Completed University o f Polysaccharide, [place] [facility] PPSV23 (PNEUMOVAX) Branch Influenza High Dose Unknown Completed Unive rsity of [facility] Influenza High Dose Unknown Completed Unive rsity of [facility] SARS-COV-2 COVID-19 Unknown Completed Unive rsity of PFIZER VACCINE [facility] SARS-COV-2 COVID-19 Unknown Completed Unive rsity of PFIZER VACCINE [facility] Influenza Virus Unknown Completed Universit y of Vaccine [facility] Pneumococcal 13 Unknown Completed Universit y of Conjugate, PCV13 [facility] dical (Prevnar 13) Branch Influenza High Dose Unknown Completed Unive rsity of [facility] Influenza High Dose Unknown Completed Unive rsity of [facility] Pneumococcal Unknown Completed University o f Polysaccharide, [place] [facility] PPSV23 (PNEUMOVAX) Branch Influenza High Dose Unknown Completed Unive rsity of [facility] Influenza High Dose Unknown Completed Unive rsity of [facility] SARS-COV-2 COVID-19 Unknown Completed Unive rsity of PFIZER VACCINE [facility] SARS-COV-2 COVID-19 Unknown Completed Unive rsity of PFIZER VACCINE [facility] Influenza Virus Unknown Completed Universit y of Vaccine [facility] Pneumococcal 13 Unknown Completed Universit y of Conjugate, PCV13 [place] [facility] (Prevnar 13) Branch Influenza High Dose Unknown Completed Unive rsity of [facility] Influenza High Dose Unknown Completed Unive rsity of [facility] Pneumococcal Unknown Completed University o f Polysaccharide, [place] [facility] PPSV23 (PNEUMOVAX) Branch Influenza High Dose Unknown Completed Unive rsity of [facility] Influenza High Dose Unknown Completed [facility] [place] SARS-COV-2 COVID-19 Unknown Completed Unive rsity of PFIZER VACCINE [facility] SARS-COV-2 COVID-19 Unknown Completed Unive rsity of PFIZER VACCINE [facility] Influenza Virus Unknown Completed Universit y of Vaccine [facility] Pneumococcal 13 Unknown Completed Universit y of Conjugate, PCV13 [place] [facility] (Prevnar 13) Branch Influenza High Dose Unknown Completed Unive rsity of [facility] Influenza High Dose Unknown Completed [facility]ive rsity of [facility] Pneumococcal Unknown Completed University o f Polysaccharide, [place] [facility] PPSV23 (PNEUMOVAX) Branch Influenza High Dose Unknown Completed Unive rsity of [facility] Influenza High Dose Unknown Completed [facility] of [facility] [place] SARS-COV-2 COVID-19 Unknown Completed Unive rsity of PFIZER VACCINE [facility] Influenza Virus Unknown Completed Universit y of Vaccine [facility] Pneumococcal 13 Unknown Completed Universit y of Conjugate, PCV13 [place] [facility] (Prevnar 13) Branch Influenza High Dose Unknown Completed Unive rsity of [facility] Influenza High Dose Unknown Completed Unive rsity of [facility] Pneumococcal Unknown Completed University o f Polysaccharide, [place] [facility] PPSV23 (PNEUMOVAX) Branch Influenza High Dose Unknown Completed Unive rsity of [facility] Influenza High Dose Unknown Completed [facility] of [facility] [place] Influenza Virus Unknown Completed Universit y of Vaccine [facility] Pneumococcal 13 Unknown Completed Universit y of Conjugate, PCV13 [place] [facility] (Prevnar 13) Branch Influenza High Dose Unknown Completed Unive rsity of [facility] Influenza High Dose Unknown Completed [facility]ive rsity of [facility] Pneumococcal Unknown Completed University o f Polysaccharide, [place] [facility] PPSV23 (PNEUMOVAX) Branch Influenza High Dose Unknown Completed Unive rsity of [facility] Influenza High Dose Unknown Completed [facility] of [facility] [place] Influenza Virus Unknown Completed Universit y of Vaccine [facility] Pneumococcal 13 Unknown Completed Universit y of Conjugate, PCV13 [place] [facility] (Prevnar 13) Branch Influenza High Dose Unknown Completed Unive rsity of [facility] Influenza High Dose Unknown Completed [facility] [place] [facility] Pneumococcal Unknown Completed University o f Polysaccharide, [place] [facility] PPSV23 (PNEUMOVAX) Branch Influenza High Dose Unknown Completed Unive rsity of [facility] Influenza High Dose Unknown Completed [facility] of [facility] [place] Influenza Virus Unknown Completed Universit y of Vaccine [facility] Pneumococcal 13 Unknown Completed Universit y of Conjugate, PCV13 [place] [facility] (Prevnar 13) Branch Influenza High Dose Unknown Completed Unive rsity of [facility] Influenza High Dose Unknown Completed [facility]ive rsity of [facility] Pneumococcal Unknown Completed University o f Polysaccharide, [place] [facility] PPSV23 (PNEUMOVAX) Branch Influenza High Dose Unknown Completed Unive rsity of [facility] Influenza High Dose Unknown Completed [facility] of [facility] [place] Influenza Virus Unknown Completed Universit y of Vaccine [facility] Pneumococcal 13 Unknown Completed Universit y of Conjugate, PCV13 [place] [facility] (Prevnar 13) Branch Influenza High Dose Unknown Completed Unive rsity of [facility] Influenza High Dose Unknown Completed [facility]ive rsity of [facility] Pneumococcal Unknown Completed University o f Polysaccharide, [place] [facility] PPSV23 (PNEUMOVAX) Branch Influenza High Dose Unknown Completed [facility]ive rsity of [facility] Pneumococcal 13 Unknown Completed Universit y of Conjugate, PCV13 [place] [facility] (Prevnar 13) Branch Influenza High Dose Unknown Completed Unive rsity of [facility] Influenza High Dose Unknown Completed [facility]ive rsity of [facility] Pneumococcal Unknown Completed University o f Polysaccharide, [place] [facility] PPSV23 (PNEUMOVAX) Branch Influenza High Dose Unknown Completed Unive rsity of [facility] Influenza High Dose Unknown Completed [facility] of [facility] [place] SARS-COV-2 COVID-19 Unknown Completed Unive rsity of PFIZER VACCINE [facility] SARS-COV-2 COVID-19 Unknown Completed Unive rsity of PFIZER VACCINE [facility] Influenza Virus Unknown Completed Universit y of Vaccine [facility] Influenza Virus Unknown Completed [facility] 65+ (FLUAD) Pneumococcal 13 Unknown Completed Universit y of Conjugate, PCV13 [place] [facility] (Prevnar 13) Branch Influenza High Dose Unknown Completed Unive rsity of [facility] Influenza High Dose Unknown Completed Unive rsity of [facility] Pneumococcal Unknown Completed University o f Polysaccharide, [place] [facility] PPSV23 (PNEUMOVAX) Branch Influenza High Dose Unknown Completed Unive rsity of [facility] Influenza High Dose Unknown Completed Unive rsity of [facility] SARS-COV-2 COVID-19 Unknown Completed Unive rsity of PFIZER VACCINE [facility] christa Branch SARS-COV-2 COVID-19 Unknown Completed Unive rsity of PFIZER VACCINE [facility] Influenza Virus Unknown Completed Universit y of Vaccine [place] [facility] Influenza Virus Unknown Completed [facility]it y of Vaccine,quad [place] [facility] Im,preserve Free Branch 65+ (FLUAD) Pneumococcal 13 Unknown Completed Universit y of Conjugate, PCV13 [place] [facility] (Prevnar 13) Branch Influenza High Dose Unknown Completed Unive rsity of [facility] Influenza High Dose Unknown Completed Unive rsity of [facility] Pneumococcal Unknown Completed University o f Polysaccharide, [place] [facility] PPSV23 (PNEUMOVAX) Branch Influenza High Dose Unknown Completed Unive rsity of [facility] Influenza High Dose Unknown Completed [facility] of [facility] [place] SARS-COV-2 COVID-19 Unknown Completed Unive rsity of PFIZER VACCINE [facility] SARS-COV-2 COVID-19 Unknown Completed Unive rsity of PFIZER VACCINE [facility] Influenza Virus Unknown Completed Universit y of Vaccine [facility] Influenza Virus Unknown Completed [facility]it y of Vaccine,quad [place] [facility] Im,preserve Free Branch 65+ (FLUAD) Pneumococcal 13 Unknown Completed Universit y of Conjugate, PCV13 [place] [facility] (Prevnar 13) Branch Influenza High Dose Unknown Completed Unive rsity of [facility] Influenza High Dose Unknown Completed Unive rsity of [facility] Pneumococcal Unknown Completed University o f Polysaccharide, [place] [facility] PPSV23 (PNEUMOVAX) Branch Influenza High Dose Unknown Completed Unive rsity of [facility] Influenza High Dose Unknown Completed Unive rsity of [facility] SARS-COV-2 COVID-19 Unknown Completed Unive rsity of PFIZER VACCINE [facility] SARS-COV-2 COVID-19 Unknown Completed Unive rsity of PFIZER VACCINE [facility] Influenza Virus Unknown Completed Universit y of Vaccine [facility] Influenza Virus Unknown Completed [facility]it y of Vaccine,quad [place] [facility] Im,preserve Free Branch 65+ (FLUAD) Pneumococcal 13 Unknown Completed Universit y of Conjugate, PCV13 [place] [facility] (Prevnar 13) Branch Influenza High Dose Unknown Completed Unive rsity of [facility] Influenza High Dose Unknown Completed Unive rsity of [facility] Pneumococcal Unknown Completed [place] o f Polysaccharide, [facility] ical PPSV23 (PNEUMOVAX) Branch Influenza High Dose Unknown Completed Unive rsity of [facility] Influenza High Dose Unknown Completed Unive rsity of Quad [facility] SARS-COV-2 COVID-19 Unknown Completed Unive rsity of PFIZER VACCINE [facility] SARS-COV-2 COVID-19 Unknown Completed Unive rsity of PFIZER VACCINE [facility] Influenza Virus Unknown Completed Universit y of Vaccine [facility] Influenza Virus Unknown Completed Universit y of Vaccine,quad [place] [facility] Im,preserve Free Branch 65+ (FLUAD) influenza virus Unknown Completed [facility] vaccine, inactivated Hx influenza Unknown Completed [facility] vaccine-unspecified <sup>1</sup> Hx influenza Unknown Completed [facility] vaccine-unspecified <sup>2</sup> influenza virus Unknown Com[facility] vaccine, inactivated<sup>2</ sup> influenza virus Unknown Completed [facility] vaccine, inactivated<sup>1</ sup> pneumococcal Unknown Completed [facility] 23-valent vaccine<sup>3</sup> Vital Signs Vital Name Observation Time Observation Value Comments Source Systolic blood 2022-11-28 134 mm[Hg] manual; slightly Universit y of pressure 18:00:00 higher, checked [place] [facility] x2; slight H/A Branch reported Diastolic blood 2022-11-28 76 mm[Hg] manual; slightly Universi ty of pressure 18:00:00 higher, checked [place] [facility] x2; slight H/A Branch reported Heart rate 2022-11-28 78 /min [facility] 18:00:00 [facility] Respiratory rate 2022-11-28 22 /min University of 18:00:00 [facility] Body weight 2022-11-28 79.47 kg University of 18:00:00 [facility] BMI 2022-11-28 23.76 kg/m2 University 18:00:00 [facility] Oxygen saturation 2022-11-28 95 /min arrived on pulsed Unive rsity of in Arterial blood 18:00:00 2 l/m [place]; [facility] by Pulse oximetry exercised on con't Bran ch 2 l/m [place] Systolic blood 2022-11-26 147 mm[Hg] University of pressure 19:00:00 [facility] Diastolic blood 2022-11-26 86 mm[Hg] University o f pressure 19:00:00 [facility] Heart rate 2022-11-26 77 /min University of 19:00:00 [facility] Body temperature 2022-11-26 36.89 Erna University of 19:00:00 [facility] Respiratory rate 2022-11-26 18 /min University of 19:00:00 [facility] Body height 2022-11-26 182.9 cm University of 19:00:00 [facility] Body weight 2022-11-26 78.472 kg University of 19:00:00 [facility] BMI 2022-11-26 23.46 kg/m2 University of 19:00:00 [facility] Oxygen saturation 2022-11-26 100 /min [facility] in Arterial blood 19:00:00 [facility] christa by Pulse oximetry [place] Systolic blood 2022-11-19 120 mm[Hg] manual University of pressure 18:00:00 [facility] Diastolic blood 2022-11-19 60 mm[Hg] manual University o f pressure 18:00:00 [facility] Heart rate 2022-11-19 82 /min University of 18:00:00 [facility] Respiratory rate 2022-11-19 22 /min University of 18:00:00 [facility] Body weight 2022-11-19 81.103 kg University of 18:00:00 [facility] BMI 2022-11-19 24.25 kg/m2 University of 18:00:00 [facility] Oxygen saturation 2022-11-19 96 /min arrived on 2 l/m Univer sity of in Arterial blood 18:00:00 [place] con't; [place] [facility] by Pulse oximetry exercised on 2 l/m Bran ch [place] con't Systolic blood 2022-11-14 122 mm[Hg] manual University of pressure 18:00:00 [facility] Diastolic blood 2022-11-14 58 mm[Hg] manual University o f pressure 18:00:00 [facility] Heart rate 2022-11-14 78 /min University of 18:00:00 [facility] Respiratory rate 2022-11-14 22 /min University of 18:00:00 [facility] Body weight 2022-11-14 79.017 kg University of 18:00:00 [facility] BMI 2022-11-14 23.63 kg/m2 University of 18:00:00 [facility] Oxygen saturation 2022-11-14 98 /min arrived on 2 l/m Univer sity of in Arterial blood 18:00:00 con't [place]; [place] [facility] by Pulse oximetry exercised on RA & Branc h 2 l/m con't [place] Systolic blood 2022-11-12 126 mm[Hg] manual University of pressure 18:00:00 [place] [facility] Diastolic blood 2022-11-12 66 mm[Hg] manual University o f pressure 18:00:00 [facility] Heart rate 2022-11-12 74 /min University of 18:00:00 [facility] Respiratory rate 2022-11-12 20 /min [place] of 18:00:00 [facility] Body weight 2022-11-12 81.557 kg University of 18:00:00 [facility] BMI 2022-11-12 24.39 kg/m2 University of 18:00:00 [facility] Oxygen saturation 2022-11-12 95 /min arrived on 2 l/m Univer sity of in Arterial blood 18:00:00 NC; exercised [place] [facility] by Pulse oximetry mainly on RA Branch Systolic blood 2022-11-09 122 mm[Hg] manual; right arm Universi ty of pressure 18:30:00 [id number] manual [facility] Diastolic blood 2022-11-09 64 mm[Hg] manual; right arm Univers ity of pressure 18:30:00 [id number] manual [facility] Heart rate 2022-11-09 70 /min University of 18:30:00 [facility] Respiratory rate 2022-11-09 22 /min University of 18:30:00 [facility] Body weight 2022-11-09 82.101 kg University of 18:30:00 [facility] BMI 2022-11-09 24.55 kg/m2 University of 18:30:00 [facility] Oxygen saturation 2022-11-09 99 /min arrived on 2 l/m Univer sity of in Arterial blood 18:30:00 con't [place]; [place] [facility] by Pulse oximetry exercised on Branch Systolic blood 2022-11-09 131 mm[Hg] University of pressure 15:22:00 [place] [facility] Diastolic blood 2022-11-09 77 mm[Hg] University o f pressure 15:22:00 [facility] Heart rate 2022-11-09 86 /min University of 15:22:00 [place] [facility] Respiratory rate 2022-11-09 18 /min University of 15:22:00 [facility] Body height 2022-11-09 182.9 cm University of 15:22:00 [facility] Body weight 2022-11-09 81.557 kg University of 15:22:00 [facility] BMI 2022-11-09 24.39 kg/m2 University of 15:22:00 [facility] Oxygen saturation 2022-11-09 97 /min University of in Arterial blood 15:22:00 [place] [facility] by Pulse oximetry Branch Systolic blood 2022-10-23 137 mm[Hg] University of pressure 20:32:00 [place] [facility] Diastolic blood 2022-10-23 73 mm[Hg] University o f pressure 20:32:00 [facility] Heart rate 2022-10-23 60 /min University of 20:32:00 [facility] Body temperature 2022-10-23 37.22 Erna University of 20:32:00 [facility] Respiratory rate 2022-10-23 17 /min University of 20:32:00 [facility] Oxygen saturation 2022-10-23 98 /min University of in Arterial blood 20:32:00 [place] [facility] by Pulse oximetry Branch Body height 2022-10-19 182.9 cm University of 09:00:00 [facility] Body weight 2022-10-19 82.555 kg University of 09:00:00 [facility] BMI 2022-10-19 24.68 kg/m2 University of 09:00:00 [facility] Systolic blood 2022-10-09 136 mm[Hg] University of pressure 20:35:00 [place] [facility] Diastolic blood 2022-10-09 76 mm[Hg] University o f pressure 20:35:00 [facility] Heart rate 2022-10-09 68 /min University of 20:35:00 [facility] Body temperature 2022-10-09 36.67 Erna University of 20:35:00 [facility] Respiratory rate 2022-10-09 19 /min University of 20:35:00 [facility] Oxygen saturation 2022-10-09 99 /min University of in Arterial blood 20:35:00 [place] [facility] by Pulse oximetry Branch Body weight 2022-10-09 82.827 kg University of 09:00:00 [facility] BMI 2022-10-09 24.77 kg/m2 University of 09:00:00 [facility] Body height 2022-10-05 182.9 cm University of 23:31:00 [facility] Systolic blood 2022-10-01 143 mm[Hg] University of pressure 15:44:00 [facility] Diastolic blood 2022-10-01 67 mm[Hg] University o f pressure 15:44:00 [facility] Heart rate 2022-10-01 52 /min University of 15:43:00 [facility] Body temperature 2022-10-01 36.5 Erna University of 15:43:00 [facility] Respiratory rate 2022-10-01 18 /min University of 15:43:00 [facility] Body height 2022-10-01 182.9 cm University of 15:43:00 [facility] Body weight 2022-10-01 87.317 kg University of 15:43:00 [facility] BMI 2022-10-01 26.11 kg/m2 University of 15:43:00 [facility] Oxygen saturation 2022-10-01 96 /min University of in Arterial blood 15:43:00 [facility] by Pulse oximetry Branch Heart rate 2022-09-18 70 /min University of 23:00:00 [facility] Respiratory rate 2022-09-18 13 /min University of 23:00:00 [facility] Oxygen saturation 2022-09-18 96 /min University of in Arterial blood 23:00:00 [facility] by Pulse oximetry Branch Systolic blood 2022-09-18 141 mm[Hg] University of pressure 22:01:00 [facility] Diastolic blood 2022-09-18 80 mm[Hg] University o f pressure 22:01:00 [facility] Body temperature 2022-09-18 36.72 Erna University of 20:09:00 [facility] Body weight 2022-09-18 85.957 kg University of 09:00:00 [facility] BMI 2022-09-18 25.70 kg/m2 University of 09:00:00 [facility] Body height 2022-09-17 182.9 cm University of 19:54:00 [facility] Systolic blood 2022-04-16 135 mm[Hg] University of pressure 16:11:00 [facility] Diastolic blood 2022-04-16 70 mm[Hg] University o f pressure 16:11:00 [facility] Heart rate 2022-04-16 53 /min University of 16:11:00 [facility] Body temperature 2022-04-16 36.17 Erna University of 16:11:00 [facility] Body height 2022-04-16 182.9 cm University of 16:11:00 [facility] Body weight 2022-04-16 88.179 kg University of 16:11:00 [facility] BMI 2022-04-16 26.37 kg/m2 University of 16:11:00 [facility] Oxygen saturation 2022-04-16 96 /min University of in Arterial blood 16:11:00 [place] [facility] by Pulse oximetry Branch Systolic blood 2022-04-12 137 mm[Hg] University of pressure 19:48:00 [facility] Diastolic blood 2022-04-12 78 mm[Hg] University o f pressure 19:48:00 [facility] Heart rate 2022-04-12 72 /min University of 19:48:00 [facility] Body temperature 2022-04-12 36 Erna University of 19:48:00 [facility] Respiratory rate 2022-04-12 18 /min University of 19:48:00 [facility] Body height 2022-04-12 182.9 cm University of 19:48:00 [facility] Body weight 2022-04-12 90.13 kg University of 19:48:00 [facility] BMI 2022-04-12 26.95 kg/m2 University of 19:48:00 [facility] Oxygen saturation 2022-04-12 95 /min University of in Arterial blood 19:48:00 [place] [facility] by Pulse oximetry Branch Systolic blood 2022-03-08 182 mm[Hg] University of pressure 22:07:00 [facility] Diastolic blood 2022-03-08 78 mm[Hg] University o f pressure 22:07:00 [facility] Heart rate 2022-03-08 67 /min University of 22:05:00 [facility] Body temperature 2022-03-08 36.28 Erna University of 20:08:00 [facility] Respiratory rate 2022-03-08 18 /min University of 20:08:00 [facility] Body height 2022-03-08 182.9 cm University of 20:08:00 [facility] Body weight 2022-03-08 86.818 kg University of 20:08:00 [facility] BMI 2022-03-08 25.96 kg/m2 University of 20:08:00 [facility] Oxygen saturation 2022-03-08 97 /min University of in Arterial blood 20:08:00 [place] [facility] by Pulse oximetry Branch Systolic blood 2022-01-08 188 mm[Hg] University of pressure 16:01:00 [facility] Diastolic blood 2022-01-08 66 mm[Hg] University o f pressure 16:01:00 [facility] Heart rate 2022-01-08 54 /min University of 16:01:00 [facility] Respiratory rate 2022-01-08 19 /min [facility] 16:01:00 [facility] [facility] Body height 2022-01-08 182.9 cm University of 16:01:00 [facility] Body weight 2022-01-08 89.858 kg University of 16:01:00 [facility] BMI 2022-01-08 26.87 kg/m2 University of 16:01:00 [facility] Oxygen saturation 2022-01-08 96 /min University of in Arterial blood 16:01:00 [place] [facility] by Pulse oximetry Branch Systolic blood 2021-12-06 118 mm[Hg] University of pressure 18:30:00 [facility] Diastolic blood 2021-12-06 76 mm[Hg] University o f pressure 18:30:00 [facility] Heart rate 2021-12-06 66 /min University of 18:26:00 [facility] Body temperature 2021-12-06 36.33 Erna University of 18:26:00 [facility] Respiratory rate 2021-12-06 18 /min University of 18:26:00 [facility] Body height 2021-12-06 182.9 cm University of 18:26:00 [facility] Body weight 2021-12-06 88.179 kg University of 18:26:00 [facility] BMI 2021-12-06 26.37 kg/m2 University of 18:26:00 [facility] Oxygen saturation 2021-12-06 96 /min University of in Arterial blood 18:26:00 [place] [facility] by Pulse oximetry Branch Systolic blood 2021-12-05 138 mm[Hg] manual University of pressure 15:00:00 [facility] Diastolic blood 2021-12-05 68 mm[Hg] manual University o f pressure 15:00:00 [facility] Heart rate 2021-12-05 58 /min University of 15:00:00 [facility] Respiratory rate 2021-12-05 22 /min University of 15:00:00 [facility] Branch Body weight 2021-12-05 88.633 kg University of 15:00:00 [facility] Branch BMI 2021-12-05 26.50 kg/m2 University of 15:00:00 [facility] Branch Oxygen saturation 2021-12-05 97 /min arrived on 2l/m Univers ity of in Arterial blood 15:00:00 MT, took off; 6MW [facility] by Pulse oximetry done RA Branch Systolic blood 2021-11-30 120 mm[Hg] manual University of pressure 14:00:00 [facility] Diastolic blood 2021-11-30 66 mm[Hg] manual University o f pressure 14:00:00 [facility] Heart rate 2021-11-30 68 /min University of 14:00:00 [facility] Respiratory rate 2021-11-30 22 /min University of 14:00:00 [facility] Branch Body weight 2021-11-30 90.311 kg University of 14:00:00 [facility] BMI 2021-11-30 27.00 kg/m2 University of 14:00:00 [facility] Branch Oxygen saturation 2021-11-30 94 /min arrived on RA; Universi ty of in Arterial blood 14:00:00 exercised on RA [facility] edical by Pulse oximetry Branch Systolic blood 2021-11-28 118 mm[Hg] manual University of pressure 15:00:00 [facility] Diastolic blood 2021-11-28 60 mm[Hg] manual University o f pressure 15:00:00 [facility] Branch Heart rate 2021-11-28 63 /min University of 15:00:00 [facility] Branch Respiratory rate 2021-11-28 22 /min University of 15:00:00 [facility] Body weight 2021-11-28 90.084 kg University of 15:00:00 [facility] BMI 2021-11-28 26.94 kg/m2 University of 15:00:00 [facility] Branch Oxygen saturation 2021-11-28 97 /min [facility] of in Arterial blood 15:00:00 [place] [facility] by Pulse oximetry Branch Systolic blood 2021-11-24 130 mm[Hg] manual University of pressure 16:00:00 [facility] Diastolic blood 2021-11-24 58 mm[Hg] manual University o f pressure 16:00:00 [facility] Heart rate 2021-11-24 55 /min University of 16:00:00 [facility] Branch Respiratory rate 2021-11-24 20 /min University of 16:00:00 [facility] Branch Body weight 2021-11-24 92.897 kg University of 16:00:00 [facility] BMI 2021-11-24 27.78 kg/m2 University of 16:00:00 [facility] Branch Oxygen saturation 2021-11-24 95 /min RA University of in Arterial blood 16:00:00 [facility] christa by Pulse oximetry Branch Systolic blood 2021-11-21 122 mm[Hg] manual University of pressure 15:00:00 [facility] Branch Diastolic blood 2021-11-21 54 mm[Hg] manual University o f pressure 15:00:00 [facility] Branch Heart rate 2021-11-21 52 /min University of 15:00:00 [facility] Branch Respiratory rate 2021-11-21 20 /min University of 15:00:00 [facility] Branch Body weight 2021-11-21 92.897 kg University of 15:00:00 [facility] Branch BMI 2021-11-21 27.78 kg/m2 University of 15:00:00 [facility] Branch Oxygen saturation 2021-11-21 94 /min due to walk into [facility] of in Arterial blood 15:00:00 MT, wore 2 l/m [place] [facility] by Pulse oximetry pulsed [place]; Branch exercised on RA Systolic blood 2021-11-16 120 mm[Hg] manual; frequent Universit y of pressure 15:00:00 missed beats; [facility] asymptomatic Branch Diastolic blood 2021-11-16 58 mm[Hg] manual; frequent Universi ty of pressure 15:00:00 missed beats; [facility] asymptomatic Branch Heart rate 2021-11-16 58 /min University of 15:00:00 [facility] Branch Respiratory rate 2021-11-16 20 /min University of 15:00:00 [facility] Branch Body weight 2021-11-16 93.895 kg University of 15:00:00 [facility] Branch BMI 2021-11-16 28.07 kg/m2 University 15:00:00 [facility] Branch Oxygen saturation 2021-11-16 89 /min arrived on 2l/m Univers ity of in Arterial blood 15:00:00 pulsed [place]; con't [facility] by Pulse oximetry want to exercise Branch on RA; encouraged PLB Temperature Oral 2019-01-17 97.9 F [facility] rmann (F) 01:21:00 Systolic (mm Hg) 2019-01-17 [facility] 01:21:00 Diastolic (mm Hg) 2019-01-17 [facility] 01:21:00 Height 2019-01-17 182.88 cm [facility] 01:18:00 Weight 2019-01-17 [facility] 01:18:00 BMI Calculated 2019-01-17 [facility] 01:18:00 Respitory Rate 2019-01-17 [facility] 01:14:00 Respitory Rate 2019-01-17 [facility] 00:10:00 Respitory Rate 2019-01-17 [facility] 00:05:00 Systolic (mm Hg) 2019-01-17 [facility] 00:05:00 Diastolic (mm Hg) 2019-01-17 [facility] 00:05:00 Temperature Oral 2019-01-17 98 F [facility] rmann (F) 00:05:00 Systolic (mm Hg) 2019-01-16 [facility] 21:00:00 Diastolic (mm Hg) 2019-01-16 [facility] 21:00:00 Heart Rate 2019-01-16 [facility] 20:16:00 Temperature Oral 2019-01-16 98.0 F [facility] rmann (F) 20:16:00 Height 2019-01-16 182.88 cm [facility] 20:16:00 BMI Calculated 2019-01-16 [facility] 20:16:00 Weight 2019-01-16 [facility] 20:16:00 Systolic (mm Hg) 2015-09-21 [facility] 16:15:00 Diastolic (mm Hg) 2015-09-21 [facility] 16:15:00 Respitory Rate 2015-09-21 [facility] 16:15:00 Systolic (mm Hg) 2015-09-21 [facility] 16:00:00 Diastolic (mm Hg) 2015-09-21 [facility] 16:00:00 Respitory Rate 2015-09-21 [facility] 16:00:00 Systolic (mm Hg) 2015-09-21 Ivana Baldwin rmann 15:45:00 Diastolic (mm Hg) 2015-09-21 Ivana Rodriguez ermann 15:45:00 Respitory Rate 2015-09-21 [facility] 15:45:00 Heart Rate 2015-09-19 Ivana Hannahan n 18:16:00 Temperature Oral 2015-09-19 98.1 F Ivana Baldwin rmann (F) 18:16:00 Weight 2015-09-19 [facility] 18:16:00 Height 2015-09-19 182.88 cm Ivana Hannahan n 18:16:00 BMI Calculated 2015-09-19 [facility] 18:16:00 Weight 2015-07-20 Ivana Hannahan n 13:06:00 BMI Calculated 2015-07-20 [facility] 13:06:00 Height 2015-07-20 185.42 cm Ivana Hannahan n 13:06:00 Procedures Procedure Date / Time Performing Clinician Source Performed CONSENT/REFUSAL FOR 2022-11-26 18:42:02 Doctor Unassigned, [facility] DIAGNOSIS AND TREATMENT [place] [facility] PULMONARY REHAB SESSION 2022-11-12 05:00:00 Doctor Unassigned, [facility] REPORT [facility] [facility] POCT GLUCOSE (AUTOMATED) 2022-10-23 21:58:00 Dennys Leblanci U [facility] POCT GLUCOSE (AUTOMATED) 2022-10-23 17:18:00 Gabriel Leblanc [facility] CBC WITH DIFF 2022-10-23 15:41:00 [facility] 2022-10-23 12:58:00 Gabriel Leblanc [facility] PHOSPHORUS 2022-10-23 10:52:00 Jaime Thompson [facility] MAGNESIUM 2022-10-23 10:52:00 Donna [facility] TROPONIN I 2022-10-23 10:52:00 Donna [facility] BASIC METABOLIC PANEL (NA, 2022-10-23 10:52:00 Jaime Thompson [facility] K, CL, CO2, GLUCOSE, BUN, Medica l Branch CREATININE, CA) POCT GLUCOSE (AUTOMATED) 2022-10-23 02:25:00 Terminella, Gabriel [facility] POCT GLUCOSE (AUTOMATED) 2022-10-22 21:44:00 [facility]ella, [facility] GLU[facility]SE (AUTOMATED) 2022-10-22 17:19:00 Terminella, Gabriel [facility] POCT GLUCOSE (AUTOMATED) 2022-10-22 13:56:00 Termingurjit, Gabriel [facility] PHOSPHORUS 2022-10-22 10:50:00 Donna [facility] MAGNESIUM 2022-10-22 10:50:00 Donna [facility] TROPONIN I 2022-10-22 10:50:00 Donna [facility] THYROID STIMULATING 2022-10-22 10:50:00 Jaime Thompson [facility] HORMONE [facility] BASIC METABOLIC PANEL (NA, 2022-10-22 10:50:00 Jaime Thompson [facility] K, CL, CO2, GLUCOSE, BUN, Medica l Branch CREATININE, CA) LIPID PANEL ([id number])(TOTAL 2022-10-22 10:50:00 Jaime Thompson [facility] CHOLESTEROL, [facility] TRIGLYCERIDES, HDL) CBC WITH DIFF 2022-10-22 10:50:00 Donna [facility] N-TERMINAL PRO-BNP 2022-10-22 10:50:00 Jaime Thompson [facility] POCT GLUCOSE (AUTOMATED) 2022-10-22 01:30:00 Terminella, Gabriel U [facility] POCT GLUCOSE (AUTOMATED) 2022-10-21 22:12:00 Terminella, Gabriel [facility] POCT GLUCOSE (AUTOMATED) 2022-10-21 17:57:00 Terminella, Gabriel U [facility] TRANSTHORACIC ECHO (TTE) 2022-10-21 16:48:34 Jaime Thompson [facility] POCT GLUCOSE (AUTOMATED) 2022-10-21 10:56:00 TerminGabriel cagle U [facility] POCT GLUCOSE (AUTOMATED) 2022-10-21 10:35:00 TerminDennys caglei U [facility] PHOSPHORUS 2022-10-21 07:52:00 [facility] 2022-10-21 07:52:00 Terminella [facility] BASIC METABOLIC PANEL (NA, 2022-10-21 07:52:00 Termingurjit, [facility] K, CL, CO2, GLUCOSE, BUN, Medica l Branch CREATININE, CA) CBC WITH DIFF 2022-10-21 07:52[facility] POCT GLUCOSE (AUTOMATED) 2022-10-21 04:32:00 TerminGabriel cagle [facility] POCT GLUCOSE (AUTOMATED) 2022-10-20 22:14:00 TerminGabriel cagle [facility] LACTIC ACID WHOLE BLOOD 2022-10-20 21:40:00 Gabriel Leblanc [facility] AC ABG + LACTIC ACID 2022-10-20 18:22:00 Gabriel Leblanc [facility] POCT GLUCOSE (AUTOMATED) 2022-10-20 16:59:00 TerminDennys caglei [facility] POCT GLUCOSE (AUTOMATED) 2022-10-20 11:10:00 TerminGabriel cagle [facility] AC PANEL 20 + LACTIC ACID 2022-10-20 09:40:00 Fantasma Reaves [facility] MAGNESIUM 2022-10-20 08:27:00 Fantasma Reaves [facility] BASIC METABOLIC PANEL (NA, 2022-10-20 08:27:00 Fantasma Reaves [facility] K, CL, CO2, GLUCOSE, BUN, Medica l Branch CREATININE, CA) CBC WITH DIFF 2022-10-20 08:27:00 Fantasma Reaves [facility] POCT GLUCOSE (AUTOMATED) 2022-10-20 04:54:00 Gabriel Leblanc [facility] POCT GLUCOSE (AUTOMATED) 2022-10-19 23:08:00 Gabriel Leblanc [facility] TROPONIN I 2022-10-19 21:17:00 Deana [facility] CT THORAX WO CONTRAST 2022-10-19 19:10:35 [facility]) 2022-10-19 18:02:00 Gabriel Leblanc [facility] AC PANEL 20 + LACTIC ACID 2022-10-19 16:11[facility] PROTHROMBIN TIME / INR 2022-10-19 15:47:00 Gabriel Leblanc [facility] PHOSPHORUS 2022-10-19 15:16:00 Deana [facility] MAGNESIUM 2022-10-19 15:16:00 Deana [facility] TROPONIN I 2022-10-19 15:16:00 [facility] MRSA / MSSA SCREEN BY PCR, 2022-10-19 15:16:00 [facility] POCT GLUCOSE (AUTOMATED) 2022-10-19 14:32:00 Doctor Unassigned, [facility] XR CHEST 1 2022-10-19 13:04:33 Elsy Slater [facility] XR CHEST 1 2022-10-19 12:06:54 Anna Marie Bethea [facility] MT INTUBATION ENDOTRACHEAL 2022-10-19 11:53:39 Anna Marie Bethea [facility] EMERGENCY PROCEDURE Medical Bran ch ACUTE CARE ARTERIAL BLOOD 2022-10-19 11:02:[address] [facility] XR CHEST 1 2022-10-19 09:32:49 Anna Marie Bethea [facility] AC PANEL 20 + LACTIC ACID 2022-10-19 09:24:00 Anna Marie Bethea [facility] COVID-19 (ID NOW RAPID 2022-10-19 09:13:00 Anna Marie Bethea [facility] TESTING) Medical Branch LAB ONLY COVID 2022-10-19 09:13:00 Anna Marie Bethea [facility] INTERPRETATION [facility] BLOOD CULTURE SCREEN 2022-10-19 09:08:00 [facility] LIPASE 2022-10-19 09:08:00 Anna Marie Bethea [facility] TROPONIN I 2022-10-19 09:08:00 Anna Marie Bethea [facility] COMP. METABOLIC PANEL 2022-10-19 09:08:00 Anna Marie Bethea [facility] ([id number]) [facility] CBC WITH DIFF 2022-10-19 09:08:00 Anna Marie Bethea [facility] N-TERMINAL PRO-BNP 2022-10-19 09:08:00 Anna Marie Bethea [facility] acute hospital HB ECG ROUTINE & RHYTHM 2022-10-19 08:56:23 Anna Marie Bethea [facility] [place] CRITICAL CARE 2022-10-19 08:47:00 Anna Marie Bethea [facility] POCT GLUCOSE (AUTOMATED) 2022-10-09 22:29:00 Fredo Trin[facility] POCT GLUCOSE (AUTOMATED) 2022-10-09 21:48:00 Fredo Trin[facility] POCT GLUCOSE (AUTOMATED) 2022-10-09 16:38:00 Fredo Trinidad [facility] POCT GLUCOSE (AUTOMATED) 2022-10-09 13:08:00 Fredo Trinidad [facility] MAGNESIUM 2022-10-09 10:17:00 Doug Campos [facility] BASIC METABOLIC PANEL (NA, 2022-10-09 10:17:00 Doug Campos [facility] K, CL, CO2, GLUCOSE, BUN, Medica l Branch CREATININE, CA) N-TERMINAL PRO-BNP 2022-10-09 10:17:00 Doug Campos [facility] POCT GLUCOSE (AUTOMATED) 2022-10-09 02:03:00 Fredo Trinidad [facility] POCT GLUCOSE (AUTOMATED) 2022-10-08 21:54:00 Fredo Trinidad [facility] POCT GLUCOSE (AUTOMATED) 2022-10-08 20:03:00 Fredo Trinidad [facility] MAGNESIUM 2022-10-08 10:02:00 Fredo Trinidad [facility] BASIC METABOLIC PANEL (NA, 2022-10-08 10:02:00 Fredo Trinidad [facility] K, CL, CO2, GLUCOSE, BUN, Medica l Branch CREATININE, CA) CBC WITH DIFF 2022-10-08 10:02:00 Fredo Trinidad [facility] GLYCOSYLATED HEMOGLOBIN 2022-10-08 10:02:00 Andres [facility] (A1C) [facility] N-TERMINAL PRO-BNP 2022-10-08 10:02:00 Dariana Giron [facility] MAGNESIUM 2022-10-07 09:45:00 Fredo Trinidad [facility] BASIC METABOLIC PANEL (NA, 2022-10-07 09:45:00 Fredo Trinidad [facility] K, CL, CO2, GLUCOSE, BUN, Medica l Branch CREATININE, CA) VITAMIN B12, LEVEL 2022-10-06 10:13:00 Fredo Trinidad [facility] FOLATE 2022-10-06 10:13:00 Fredo Trinidad [facility] COMP. METABOLIC PANEL 2022-10-06 10:13:00 Faina Badillo [facility] ([id number]) [facility] CBC WITH DIFF 2022-10-06 10:13:00 Faina Badillo [facility] N-TERMINAL PRO-BNP 2022-10-06 10:13:00 Faina Badillo [facility] PROCALCITONIN 2022-10-06 10:13:00 Faina Badillo [facility] EKG-12 LEAD 2022-10-05 21:55:22 Jo-Ann Whitehead [facility] COVID-19 (ID NOW RAPID 2022-10-05 21:14:00 Jo-Ann Whitehead [facility] TESTING) Medical Branch LAB ONLY COVID 2022-10-05 21:14:00 Jo-Ann Whitehead [facility] INTERPRETATION [facility] URINALYSIS 2022-10-05 20:48:00 Jo-Ann Whitehead [facility] XR CHEST 1 VW 2022-10-05 20:03:53 Jo-Ann Whitehead [facility] MAGNESIUM 2022-10-05 19:43:00 Jo-Ann Whitehead [facility] TROPONIN I 2022-10-05 19:43:00 Jo-Ann Whitehead [facility] COMP. METABOLIC PANEL 2022-10-05 19:43:00 Jo-Ann [facility]head [facility] ([id number]) [facility] [place] CBC WITH DIFF 2022-10-05 19:43:00 Jo-Ann Whitehead [facility] N-TERMINAL PRO-BNP 2022-10-05 19:43:00 Jo-Ann Whitehead [facility] HOSPITAL ADMISSION 2022-10-05 05:01:00 Doctor Unassigned, [facility] POCT HEMOGLOBIN A1C TEST 2022-10-01 16:30:00 Dwight Can [facility] PATIENT FINANCIAL 2022-10-01 15:29:54 Doctor Unassigned, [facility] POLICY [place] [facility] POCT GLUCOSE (AUTOMATED) 2022-09-18 21:53:00 Fredo Trinidad [facility] POCT GLUCOSE (AUTOMATED) 2022-09-18 17:19:00 Fredo Trinidad [facility] URINALYSIS 2022-09-18 16:20:00 Darius Hoffman [facility] POTASSIUM, URINE RANDOM 2022-09-18 16:20:00 Darius Hoffman [facility] SODIUM, URINE RANDOM 2022-09-18 16:20:00 Darius Hoffman [facility] CHLORIDE, URINE RANDOM 2022-09-18 16:20:00 Darius Hoffman [facility] PROTEIN CREAT RATIO URINE 2022-09-18 16:20:[address] [facility] CT HEAD WO CONTRAST 2022-09-18 15:02:14 Faina Badillo [facility] POCT GLUCOSE (AUTOMATED) 2022-09-18 13:06:00 Fredo Trinidad [facility] AMMONIA, PLASMA 2022-09-18 10:29:00 Faina Badillo [facility] PHOSPHORUS 2022-09-18 10:28:00 Darius Hoffman [facility] URIC ACID 2022-09-18 10:28:00 Darius Hoffman [facility] CORTISOL AM 2022-09-18 10:28:00 Faina Badillo [facility] VITAMIN B12, LEVEL 2022-09-18 10:28:00 Faina Badillo [facility] FOLATE 2022-09-18 10:28:00 Faina Badillo [facility] TROPONIN I 2022-09-18 10:28:00 Fredo Trinidad [place] [facility] FREE T4 2022-09-18 10:28:00 Faina Badillo [facility] THYROID STIMULATING 2022-09-18 10:28:00 Faina [facility] HORMONE [facility] COMP. METABOLIC PANEL 2022-09-18 10:28:00 Darius Hoffman [facility] ([id number]) [facility] CBC WITH DIFF 2022-09-18 10:28:00 Darius Hoffman [facility] POCT GLUCOSE (AUTOMATED) 2022-09-18 01:46:00 Fredo Trinidad [facility] EKG-12 LEAD 2022-09-17 23:08:07 Elsy Slater [facility] URINALYSIS 2022-09-17 23:05:00 Elsy Slater [facility] URINE DRUG (IMMUNOASSAY) - 2022-09-17 23:05:00 Elsy Slater [facility] COMPREHENSIVE DRUG SCREEN Medica l Branch W/O REFLEX AC PANEL 21 + LACTIC ACID 2022-09-17 22:10:00 Elsy Slater [facility] XR CHEST 1 VW 2022-09-17 21:35:55 Elsy Slater [facility] AC PANEL 21 + LACTIC ACID 2022-09-17 21:17:00 Elsy Slater [facility] LIPASE 2022-09-17 20:08:00 Elsy Slater [facility] MAGNESIUM 2022-09-17 20:08:00 Elsy Slater [facility] TROPONIN I 2022-09-17 20:08:00 Elsy Slater [facility] COMP. METABOLIC PANEL 2022-09-17 20:08:00 Elsy Slater [facility] ([id number]) [facility] CBC WITH DIFF 2022-09-17 20:08:00 Elsy Slater [facility] POCT GLUCOSE(AGE >30DAYS) 2022-09-17 20:08:00 Elsy Slater [facility] N-TERMINAL PRO-BNP 2022-09-17 20:08:00 Elsy Slater [facility] AC PANEL 21 + LACTIC ACID 2022-09-17 20:08:00 Elsy Slater [facility] POCT GLUCOSE (AUTOMATED) 2022-09-17 20:07:00 Elsy Slater [facility] [id number] 2022-08-25 00:00:00 [facility] [id number] 2022-08-25 00:00:00 [facility] [id number] 2022-08-25 00:00:00 [facility] MEDICATION CORRESPONDENCE 2022-08-24 05:01:00 Doctor Unassigned, [facility] Name Medical Branch AUTHORIZATION FOR RELEASE 2022-05-30 05:01:00 Doctor Unassigned, [facility] Name Medical Branch AUTHORIZATION FOR RELEASE 2022 06:01:00 Doctor Unassigned, [facility] OF PHI [place] [facility] PHYSICIAN ORDERS 2022-04-16 06:01:00 Doctor Unassigned, [facility] [place] [facility] DME/SUPPLY JUSTIFICATION 2022-04-06 06:01:00 Doctor Unasscatalina, [facility] [place] [facility] ASSIGNMENT OF BENEFITS 2022-03-08 19:44:47 Doctor Eliza, Un [facility] [place] [facility] PHYSICIAN ORDERS 2022-02-12 06:01:00 Doctor Eliza [facility] [place] [facility] MEDICATION CORRESPONDENCE 2022-02-05 06:01:00 Doctor Unassigned, [facility] [place] [facility] MEDICATION CORRESPONDENCE 2021-12-22 05:01:00 Doctor Kemisscatalina, [facility] [place] [facility] FLU 2021-12-06 19:32:57 Liborio Hall [facility] VACC(),65+YR,0.5 Medica l Branch ML,IM,ADJUVANTED,QUAD(FLUA D) PULMONARY REHAB ITP REPORT 2021-12-05 20:50:00 Doctor Eliza , [facility] [place] [facility] FUNGUS (ROUTINE) CULTURE 2021-11-28 19:49:00 Neeta Del Toro [facility] PULMONARY REHAB SESSION 2021-11-24 05:00:00 Doctor Eliza, [facility] REPORT [place] [facility] NO SHOW OR MISSED 2021-11-02 05:01:00 Doctor Kay, [facility] APPOINTMENT POLICY [place] [facility] h ACKNOWLEDGEMENT Colonoscopy<sup>1, 2</sup> 2015-09-21 05:00:00 M anne Marshall Diabetic foot examination 2014-09-17 05:00:00 Me morial Rolando Operation<sup>4</sup> 2014-07-02 05:00:00 Pretty al [place] [facility] Cervical laminoplasty with Memor ial [place] decompression of spinal cord Encounters Start End Encounter Admission Attending Care Care Encounter Source Date/Time Date/Time Type Type Clinicians Facility Department ID 2020-12-31 Emergency [facility] [id number] Univers 13:27:36 [facility] [place] [facility] 2020-12-30 Emergency [facility] [id number] Univers 15:37:20 ity of [facility] 2022-12-11 2022-12-11 [address] [facility] [id number] Univers 00:00:00 00:00:00 Ya RODRIGUEZ [id number] i [id number] [id number] Dc dical NAL 085 [facility] 2022-12-11 2022-12-11 Telephone [facility] [id number] Univers 00:00:00 00:00:00 Summer C [place] [id number] i [id number] [id number] Dc dical NAL 296 [facility] 2022-12-05 2022-12-05 Telephone [facility] [id number] Univers 00:00:00 00:00:00 Summer C [place] [id number] i [id number] [id number] Dc dical NAL 296 [facility] [place] 2022-12-03 2022-12-03 Telephone [facility] 1.2.222.094 [id number] Univers 00:00:00 00:00:00 Summer C [place] 350.1.13.10 i ty of [place] [id number] Dc dical NAL 296 [facility] 2022-11-29 2022-11-29 Telephone [facility] 1.2.840.114 1 [id number] Univers 00:00:00 00:00:00 Liborio [place] 350.1.13.10 i ty of [place] [phone] Dc dical NAL 044 [facility] 2022-11-28 2022-11-28 Outpatient R YA QUINTANA [facility] 10 [id number] Univers 13:00:00 14:28:55 YA QUINTANA i ty of [facility] 2022-11-28 2022-11-28 Ancillary Therapist, Adc Pulmonary [facility] 1.2.840.114 [id number] Univers 13:00:00 14:28:55 Visit Ya Quintana 350.1.13.10 it[facility] [place] [id number] Dc dical NAL 296 [facility] 2022-11-26 2022-11-26 Emergency X CHARLEY, K [facility] ERT [id number] Univers 14:01:00 15:16:00 ity of [facility] 2022-11-26 2022-11-26 Emergency Jo-Ann Whitehead [facility] 1.2.840.114 10 [id number] Univers 14:01:00 15:16:00 Dianna RODRIGUEZ 350.1.13.10 i ty [facility] [place].2.7.2.[place] [phone] [facility] [address] [place] 2022-11-21 2022-11-21 Telephone Kenneth [facility] 1.2.067.325 [id number] Univers 00:00:00 00:00:00 Summer RODRIGUEZ 350.1.13.10 i ty [facility] [place] [phone] Dc dical NAL 296 [facility] 2022-11-20 2022-11-20 Ancillary Debbie Levy [facility] 1.2.840. 114 [id number] Univers 17:00:00 18:00:00 Visit Hasmukh Etienne 350.1.13.10 ity of [place] [id number] Dc dical NAL 179 [facility] 2022-11-20 2022-11-20 Outpatient R HASMUKH ETIENNE [facility] [id number] Univers 17:00:00 17:00:00 HASMUKH ETIENNE itrohan [facility] 2022-11-19 2022-11-19 Ancillary Therapist, [facility] Pulmonary [facility] 1.2.840.114 [id number] Univers 13:00:00 13:47:57 Visit Dwight Can 350.1.13.1 0 ity of [place] [id number] Dc dical NAL 296 [facility] 2022-11-15 2022-11-15 Ancillary Pauline Henry [facility] 1.2.840.1 14 [id number] Univers 14:30:00 15:06:03 Visit Hasmukh Etienne JENNIFER 350.1.13.10 ity of [place] [id number] Dc dical NAL 179 [facility] 2022-11-14 2022-11-14 Ancillary Therapist, Adc Pulmonary [facility] 1.2.840.114 [id number] Univers 13:00:00 14:14:24 Visit Ya Quintana 350.1.13.10 it[place] of [place] [phone] Dc dical NAL 296 [facility] 2022-11-13 2022-11-13 Ancillary Pauline Henry [facility] 1.2.840.1 14 [id number] Univers 11:00:00 11:55:53 Visit Hasmukh Etienne JENNIFER 350.1.13.10 ity of [place] [phone] Dc dical NAL 179 [facility] 2022-11-12 2022-11-12 Ancillary Therapist, Adc Pulmonary [facility] 1.2.840.114 [id number] Univers 13:00:00 13:59:26 Visit Ya Quintana 350.1.13.10 ity of [place] [id number] Dc dical NAL 296 [facility] 2022-11-12 2022-11-12 Orders Doctor REYES 1.2.840.114 [id number] Univers 00:00:00 00:00:00 Only Unassigned, TOYA 350.1.13.10 ity of [place] [facility] 4.2.7.2.686 [place] as [phone] [address] 2022-11-12 2022-11-12 Tele[place] 1.2.454.158 [id number] Univers 00:00:00 00:00:00 Ya RODRIGUEZ 350.1.13.10 i [place] [phone] Dc dical NAL 085 [facility] 2022-11-09 2022-11-09 Ancillary Therapist, Siim Gandhi [facility] 1.2.840.114 [id number] Univers 13:30:00 16:20:03 Visit Ya Quintana 350.1.13.10 ity of [place] [phone] Dc dicnc NAL 296 [facility] 2022-11-09 2022-11-09 Outpatient R YA QUINTANA [facility] 10 [id number] Univers 10:30:00 11:02:41 YA QUINTANA i ty of [facility] 2022-11-09 2022-11-09 Office Bairon [facility] 1.2.840.114 [id number] Univers 10:30:00 11:02:41 Visit Ya RODRIGUEZ 350.1.13.10 i ty of [facility] 4.2.[place].2.[place] [phone] [facility] NAL 085 [facility] 2022-11-09 2022-11-09 Telephone Kenneth [facility] 1.2.474.537 [id number] Univers 00:00:00 00:00:00 Summer RODRIGUEZ 350.1.13.10 i ty of [place] [phone] Dc dical NAL 296 [facility] 2022-11-06 2022-11-06 Ancillary Pauline Henry [facility] 1.2.840.1 14 [id number] Univers 13:00:00 14:04:12 Visit Dwight Can 350.1.13.1 0 ity of [place] [id number] Dc dicnc NAL 179 [facility] 2022-10-31 2022-10-31 [id number] Univers 14:00:00 14:00:00 LIBORIO itrohan [facility] 2022-10-31 2022-10-31 Telephone [facility] 1.2.034.743 [id number] Univers 00:00:00 00:00:00 Summer C [place] 350.1.13.10 i ty of [place] [phone] Dc dical NAL 296 [facility] 2022-10-24 2022-10-24 Transition MELANIE Mejia 1.2.840.114 [id number] Univers 00:00:00 00:00:00 of Care Jared VICKERS 350.1.13.10 ity of [place].2.[place] [phone] [address] 2022-10-19 2022-10-23 Inpatient X WAGONERFORMERLY [facility] [id number] Univers 03:50:00 17:17:00 GIORGI [facility] 2022-10-19 2022-10-23 Hospital Anna Marie Bethea [facility] 1.2.840. 114 [id number] Univers 03:50:00 17:17:00 Encounter Elsy Slater [facility] 350.1.13. 10 ity of [place] 4.2.7.2.686 [facility] [phone] [address] ([facility]) 2022-10-17 2022-10-17 Telephone [facility] 1.2.035.533 [id number] Univers 00:00:00 00:00:00 Summer C [place] 350.1.13.10 i ty of [place] [phone] Dc dicnc NAL [address] [place] [address] 2022-10-15 2022-10-15 Outpatient [facility] [id number] Univers 11:00:00 11:00:00 DARIANA pulido f [facility] 2022-10-10 2022-10-10 Transition MELANIE Ty 1.2.840.114 [id number] Univers 00:00:00 00:00:00 of Care Nydia VICKERS 350.1.13.10 it y of [place] [phone] [facility] [address] 2022-10-10 2022-10-10 Patient Doctor REYES 1.2.840.114 [id number] Univers 00:00:00 00:00:00 Secure Msg Unassigned, TOYA 350.1.13.10 ity of [place] [facility] 4.2.7.2.686 [place] as [phone] [facility] [address] 2022-10-05 2022-10-09 Inpatient X AMOS [facility] TATE [id number] Univers 14:24:00 18:50:00 FREDO ity of [facility] 2022-10-05 2022-10-09 [facility] Charley Jo-Ann Dianna [facility] 1.2.840.1 14 [id number] Univers 14:24:00 18:50:00 Encounter Fredo Trinidad 350.1.13.10 ity of [facility] 4.2.7.2.[place] [id number] [facility] [address] 2022-10-02 2022-10-02 Patient Gurpreet [facility] 1.2.840.114 [id number] Univers 00:00:00 00:00:00 Outreach Lu RODRIGUEZ 350.1.13.10 ity of [place] [id number] Dc darshana HERNANDEZ 044 [facility] 2022-10-01 2022-10-01 Outpatient R OBI-DWIGHT KAUR [facility] [id number] Univers 10:40:00 11:48:31 OBI-DWIGHT KAUR ity of [facility] 2022-10-01 2022-10-01 Office Obi-Jose D [facility] 1.2.840.114 10 [id number] Univers 10:40:00 11:48:31 Visit Dwight 350.1.13.10 i ty of [place] [phone] Dc dical NAL 044 [facility] 2022-10-01 2022-10-01 Orders Doctor REYES 1.2.840.114 [id number] Univers 00:00:00 00:00:00 Only Unassigned, TOYA 350.1.13.10 ity of [place] [facility] 4.2.7.2.686 [place] as [phone] [facility] [address] [place] 2022-10-01 2022-10-01 Telephone Obi-Jose D [facility] 1.2.840.114 [id number] Univers 00:00:00 00:00:00 , Dwight JENNIFER 350.1.13.10 i ty of [place] [phone] Dc dical NAL 044 [facility] 2022-09-19 2022-09-19 Transition MELANIE Ty 1.2.840.114 104 [id number] Univers 00:00:00 00:00:00 of Care Nydia VICKERS 350.1.13.10 it y [place] [phone] [facility] [address] [place] 2022-09-19 2022-09-19 Patient Doctor REYES 1.2.840.114 [id number] Univers 00:00:00 00:00:00 Secure Msg Unassigned, TOYA 350.1.13.10 ity of [place] [facility] 4.2.7.2.686 [place] [phone] [facility] [address] 2022-09-17 2022-09-18 Inpatient X AMOS [facility] TATE [id number] Univers 14:51:00 19:08:00 FREDO aranda of [facility] 2022-09-17 2022-09-18 Hospital Elsy Slater [facility] 1.2.84 0.114 [id number] Univers 14:51:00 19:08:00 Encounter Fredo Trinidad 350.1.13.10 ity of [facility] 4.2.7.2.[place] [id number] [facility] [address] [place] 2022-09-10 2022-09-10 Reggie Hall [facility] 1.2.840.114 [id number] Univers 00:00:00 00:00:00 Liborio RODRIGUEZ 350.1.13.10 i ty of [place].2.[place] [id number] Dc dical NAL 044 [facility] 2022-08-21 2022-08-26 Inpatient EM BILL Lopes TELE [id number] [facility] 16:50:00 20:12:00 Caren 57 [facility] 2022-08-24 2022-08-24 Orders Doctor REYES 1.2.840.114 [id number] Univers 00:00:00 00:00:00 Only Unassigned, TOYA 350.1.13.10 [facility] 4.2.7.2.686 [place] [phone] [address] 2022-08-21 2022-08-21 Outpatient JAIME LopesCL LABO [id number] [facility] 23:54:00 23:54:00 Caren 25 [facility] 2022-08-15 2022-08-15 Telephone HANG Quintana 1.2.494.420 [id number] Univers 00:00:00 00:00:00 Ya RODRIGUEZ 350.1.13.10 i ty of [place] [phone] Dc dicjennifer NAL 085 [facility] 2022-08-10 2022-08-10 Outpatient R ISABEL [facility] [id number] Univers 13:20:00 13:20:00 LIBORIO aranda of [facility] 2022-07-09 2022-07-09 Outpatient R YA QUINTANA [facility] 10 [id number] Univers 10:00:00 10:00:00 YA QUINTANA i ty of [facility] 2022-06-20 2022-06-20 Refill Isabel [facility] 1.2.840.114 102 [id number] Univers 00:00:00 00:00:00 Liborio RODRIGUEZ 350.1.13.10 i ty of [place] 802.7636057 Dc dical NAL 044 [facility] 2022-06-03 2022-06-03 Refill [facility] 1.2.840.114 101 [id number] Univers 00:00:00 00:00:00 Liborio RODRIGUEZ 350.1.13.10 i ty of [facility] 4.2.7.2.[place] [phone] Dc dical NAL 044 [facility] 2022-06-02 2022-06-02 Refill [facility] 1.2.840.114 [id number] Univers 00:00:00 00:00:00 Jaxon TREJO 350.1.13.10 i ty of [facility] [place]2.[place] [phone] [facility] [address] [place] 2022-05-30 2022-05-30 Orders Doctor REYES 1.2.840.114 [id number] Univers 00:00:00 00:00:00 Only Unassigned, TOYA 350.1.13.10 ity of [place] [facility] 4.2.7.2.686 [place] [phone] [facility] [address] [place] 2022 2022 Orders Doctor REYES 1.2.840.114 [id number] Univers 00:00:00 00:00:00 Only Unassigned, TOYA 350.1.13.10 ity of [place] [facility] 4.2.7.2.686 [place] as [phone] [facility] [address] [place] 2022-04-27 2022-04-27 Telephone [facility] 1.2.840.114 1 [id number] Univers 00:00:00 00:00:00 Liborio RODRIGUEZ 350.1.13.10 i ty of [facility] 4.2.7.2.[place] [phone] Dc dical NAL 044 [facility] 2022-04-16 2022-04-16 Catia Designer 2, Adc Lab [facility] 1.2.840.114 [id number] Univers 10:45:00 11:00:00 Visit Dariana Giron 350.1.13.10 ity of [place] 4.2.7.2.686 [place] PROFESSIO [phone] Dc dical NAL 353 [facility] 2022-04-16 2022-04-16 Outpatient R SAYRA [facility] [id number] Univers 10:45:00 10:45:00 FELIPAITHA ity [facility] 2022-04-16 2022-04-16 Office [facility] 1.2.840.114 [id number] Univers 10:20:00 10:40:00 Visit Dariana RODRIGUEZ 350.1.13.10 ity of [place] [phone] Dc dical NAL 059 [facility] 2022-04-16 2022-04-16 Orders Doctor REYES 1.2.840.114 [id number] Univers 00:00:00 00:00:00 Only Unassigned, TOYA 350.1.13.10 ity of [facility] 4.2.7.2.686 [place] [phone] [facility] [address] [place] 2022-04-13 2022-04-13 Nurse Annette PULLIAM 1.2.840.114 [id number] Univers 00:00:00 00:00:00 Triage TOYA Fernandez 350.1.13.10 ity [facility] 4.2.7.2.686 [place] [phone] [facility] [address] [place] 2022-04-12 2022-04-12 Office [facility] 1.2.840.114 [id number] Univers 13:00:00 13:40:00 Visit Liborio RODRIGUEZ 350.1.13.10 i ty of [place] [phone] Dc dical NAL 044 [facility] 2022-04-12 2022-04-12 Outpatient R ISABEL [facility] [id number] Univers 13:00:00 13:00:00 LIBORIO aranda of [facility] 2022-04-11 2022-04-11 Nurse REYES Núñez 1.2.840.114 [id number] Univers 00:00:00 00:00:00 Triage Selene Nathan [place] 350.1.13.10 ity of [facility] 4.2.7.2.686 [place] [phone] [facility] [address] [place] 2022-04-10 2022-04-10 Catia Designer 2, Adc Lab [facility] 1.2.840.114 [id number] Univers 14:30:00 14:45:00 Visit Liborio Hall 350.1.13.10 ity of [facility] 4.2.7.2.[place] 403.0633335 Dc dical NAL 353 [facility] 2022-04-10 2022-04-10 [facility] [id number] [facility] 14:30:00 14:30:00 LIBORIO ity [facility] 2022-04-10 2022-04-10 Telephone [facility] 1.2.840.114 1 [id number] Univers 00:00:00 00:00:00 Liborio RODRIGUEZ 350.1.13.10 i ty [place].2.[place] [id number] Dc dical NAL 044 [facility] 2022-04-06 2022-04-06 [facility]phone [facility] 1.2.840.114 1 [id number] Univers 00:00:00 00:00:00 Liborio RODRIGUEZ 350.1.13.10 i ty [place].2.[place] 607.2760784 Dc dical NAL 044 [facility] 2022-04-06 2022-04-06 Orders Doctor REYES 1.2.840.114 [id number] Univers 00:00:00 00:00:00 Only Unassigned, TOYA 350.1.13.10 ity of [place] [facility] 4.2.7.2.686 [place] as [phone] [facility] [address] [place] 2022-04-05 2022-04-05 Telephone [facility] 1.2.307.905 [id number] Univers 00:00:00 00:00:00 Ya RODRIGUEZ 350.1.13.10 i ty of [place].2.[place] 065.8013555 Dc dical NAL 085 [facility] 2022-03-27 2022-03-27 [facility] 1.2.840.114 100 [id number] Univers 00:00:00 00:00:00 Liborio RODRIGUEZ 350.1.13.10 i ty [place].2.[place] 704.3244734 Dc dical NAL 044 [facility] 2022-03-26 2022-03-26 Telephone [facility] 1.2.840.114 1 [id number] Univers 00:00:00 00:00:00 Liborio RODRIGUEZ 350.1.13.10 i ty of [place].2.[place] 753.7537508 Dc dical NAL 044 [facility] 2022-03-19 2022-03-19 [facility] 1.2.840.114 [id number] Univers 00:00:00 00:00:00 Liborio RODRIGUEZ 350.1.13.10 i ty [place].2.[place] [phone] Dc dicnc NAL [address] [place] [address] 2022-03-11 2022-03-11 [facility] 1.2.840.114 [id number] Univers 00:00:00 00:00:00 Ya RODRIGUEZ 350.1.13.10 i ty [place].2.[place] 275.5279561 [facility] 085 [facility] 2022-03-08 2022-03-08 [facility] [id number] Univers 14:40:00 16:00:29 LIBORIO aranda [facility] 2022-03-08 2022-03-08 Office [facility] 1.2.840.114 [id number] Univers 14:40:00 16:00:29 Visit Liborio RODRIGUEZ 350.1.13.10 i ty of [facility] 4.2.7.2.[place] [id number] Dc dicnc NAL [address] [place] [address] 2022-03-08 2022-03-08 Office [facility] 1.2.840.114 [id number] [id number] Univers 14:00:00 14:20:00 Visit Liborio RODRIGUEZ 350.1.13.10 i ty of [facility] 4.2.7.2.[place] [phone] Dc dical NAL 044 [facility] 2022-03-08 2022-03-08 Orders Doctor REYES 1.2.840.114 [id number] Univers 00:00:00 00:00:00 Only Unassigned, TOYA 350.1.13.10 ity of [place] [facility] 4.2.7.2.686 [place] as [id number] [facility] [address] [place] 2022-03-05 2022-03-05 Catia Designer 2, Adc Lab [facility] 1.2.840.114 [id number] Univers 13:00:00 13:15:00 Visit Liborio Hall 350.1.13.10 ity [place] 704.4673920 Dc dicnc NAL 353 [facility] 2022-03-05 2022-03-05 Outpatient R ISABEL [facility] [id number] Univers 13:00:00 13:00:00 LIBORIO itrohan of [facility] 2022-03-05 2022-03-05 Patient Doctor REYES 1.2.840.114 [id number] Univers 00:00:00 00:00:00 Secure Msg Unassigned, TOYA 350.1.13.10 ity of [place] [facility] 4.2.7.2.686 [place] as 411.4319959 [facility] [address] [place] 2022-02-20 2022-02-20 Refill [facility] 1.2.840.114 [id number] Univers 00:00:00 00:00:00 Liborio RODRIGUEZ 350.1.13.10 i ty [place] [id number] Dc dical NAL 044 [facility] 2022-02-12 2022-02-12 Catia Designer 2, Adc Lab [facility] 1.2.840.114 [id number] Univers 14:30:00 14:45:00 Visit Maral Garsia 350.1.13.10 ity of [facility] [place].2.[place] 173.8758771 Dc dical NAL 353 [facility] 2022-02-12 2022-02-12 Outpatient R SAYRA [facility] [id number] Univers 14:30:00 14:30:00 FELIPAITHA ity of [facility] 2022-02-12 2022-02-12 Refindy [facility]UN[facility] 1.2.840.114 [id number] Univers 00:00:00 00:00:00 Ya RODRIGUEZ 350.1.13.10 i ty [place] 404.7273081 Dc dical NAL 085 [facility] 2022-02-12 2022-02-12 Orders Doctor REYES 1.2.840.114 [id number] Univers 00:00:00 00:00:00 Only Unassigned, TOYA 350.1.13.10 ity of [place] [facility] 4.2.7.2.686 [place] [phone] [address] 2022-02-12 2022-02-12 Refill [facility]UN[facility] 1.2.840.114 [id number] [id number] Univers 00:00:00 00:00:00 Liborio RODRIGUEZ 350.1.13.10 i ty [place] 550.2338511 Dc dical NAL 044 [facility] 2022-02-07 2022-02-07 El [facility] 1.2.840.114 [id number] Univers 00:00:00 00:00:00 Liborio RODRIGUEZ 350.1.13.10 i ty of [place] 413.0143958 Dc dical NAL 044 [facility] 2022-02-05 2022-02-05 Orders Doctor REYES 1.2.840.114 [id number] Univers 00:00:00 00:00:00 Only Unassigned, TOYA 350.1.13.10 ity of [place] [facility] 4.2.7.2.686 [place] as [phone] [address] 2022-01-24 2022-01-24 [facility] Quint[facility]UN[facility] 1.2.840.114 [id number] Univers 00:00:00 00:00:00 Ya RODRIGUEZ 350.1.13.10 i ty [place] 244.0441080 Dc dical NAL 085 [facility] 2022-01-24 2022-01-24 [facility] 1.2.840.114 [id number] Univers 00:00:00 00:00:00 Liborio RODRIGUEZ 350.1.13.10 i ty [place] [phone] Dc dical NAL 044 [facility] 2022-01-18 2022-01-18 [facility] HallUN[facility] 1.2.840.114 [id number] Univers 00:00:00 00:00:00 Liborio RODRIGUEZ 350.1.13.10 i [facility] [place] [phone] Dc dical NAL 044 [facility] 2022-01-12 2022-01-12 [facility] 1.2.840.114 [id number] Univers 00:00:00 00:00:00 Liborio RODRIGUEZ 350.1.13.10 i ty [place] [phone] Dc dical NAL 044 [facility] 2022-01-12 2022-01-12 [facility] IsabelUN[facility]ERS[facility] 1.2.840.114 [id number] Univers 00:00:00 00:00:00 Liborio RODRIGUEZ 350.1.13.10 i ty [place] [id number] Dc dical NAL 044 [facility] 2022-01-09 2022-01-09 [facility] HallUN[facility] 1.2.840.114 [id number] Univers 00:00:00 00:00:00 Liborio RODRIGUEZ 350.1.13.10 i ty [place] [phone] Dc dical NAL [address] [place] [address] 2022-01-08 2022-01-08 Outpatient R YA QUINTANA [facility] [id number] Univers 10:00:00 10:23:18 YA QUINTANA i ty of [facility] 2022-01-08 2022-01-08 Office [facility] 1.2.840.114 [id number] Univers 10:00:00 10:23:18 Visit Ya RODRIGUEZ 350.1.13.10 i [facility] [place] [phone] Dc dicnc NAL [address] [place] [address] 2022-01-02 2022-01-02 Refill IsabelUN[facility] 1.2.840.114 [id number] Univers 00:00:00 00:00:00 Liborio RODRIGUEZ 350.1.13.10 i ty [facility] [place] [phone] Dc dicnc NAL [address] [place] [address] 2022-01-02 2022-01-02 Refill [facility] 1.2.840.114 [id number] Univers 00:00:00 00:00:00 Ya RODRIGUEZ 350.1.13.10 i [facility] [place] [phone] Dc dicnc NAL [address] [place] [address] 2021-12-29 2021-12-29 Telephone [facility] 1.2.586.006 [id number] Univers 00:00:00 00:00:00 Ya RODRIGUEZ 350.1.13.10 i ty [facility] [place] [phone] Dc dicnc NAL [address] [place] [address] 2021-12-28 2021-12-28 Telephone IsabelUNIVERS[facility] 1.2.840.114 [id number] Univers 00:00:00 00:00:00 Liborio RODRIGUEZ 350.1.13.10 i ty [facility] [place] [phone] Me dic[address] [facility] 2021-12-22 2021-12-22 Orders Doctor REYES 1.2.840.114 [id number] Univers 00:00:00 00:00:00 Only Unassigned, TOYA 350.1.13.10 ity of [facility] 4.2.7.2.686 Adelso as [phone] [address] 2021-12-19 2021-12-19 Letter KennethUNIVERSITY [facility] 1.2.840.114 [id number] Univers 00:00:00 00:00:00 (Out) Summer RODRIGUEZ 350.1.13.10 i ty of [place] [phone] [address] 2021-12-06 2021-12-06 Outpatient R ISABEL [facility] [id number] Univers 13:20:00 14:20:30 LIBORIO aranda [facility] 2021-12-06 2021-12-06 Office IsabelUN[facility] 1.2.840.114 [id number] Univers 13:20:00 14:20:30 Visit Liborio RODRIGUEZ 350.1.13.10 i ty of [place] [phone] [address] 2021-12-05 2021-12-05 Outpatient R MIKEY [facility] [id number] Univers 10:00:00 16:37:56 LEXI aranda [facility] 2021-12-05 2021-12-05 Ancillary Therapist, Adc Pulmonary [facility] 1.2.840.114 [id number] Univers 10:00:00 16:37:56 Visit Lexi Vaca 350.1.13. 10 ity of [place] [id number] [address] 2021-12-05 2021-12-05 Orders Doctor PULLIAM 1.2.840.114 [id number] Univers 00:00:00 00:00:00 Only Unassigned, TOYA 350.1.13.10 ity of [place] [facility] 4.2.7.2.686 Adelso as [id number] [facility] [address] 2021-11-30 2021-11-30 Outpatient R MIKEY [facility] [id number] Univers 09:00:00 14:00:05 LEXI ity [facility] 2021-11-30 2021-11-30 Ancillary Therapist, Adc Pulmonary [facility] 1.2.840.114 [id number] Univers 09:00:00 14:00:05 Visit Lexi Vaca 350.1.13. 10 ity of [facility] [place] [id number] Dc dical NAL 296 [facility] 2021-11-30 2021-11-30 Patient Doctor [facility] 1.2.840.114 [id number] Univers 00:00:00 00:00:00 Secure Msg UnassignedJENNIFER 350.1.13.10 ity of [place] [id number] Dc dical NAL 059 [facility] 2021-11-28 2021-11-28 Outpatient R KATEY [facility] [id number] Univers 14:00:00 14:18:18 ROLA aranda [facility] 2021-11-28 2021-11-28 Office Katey [facility] 1.2.840.114 [id number] Univers 14:00:00 14:18:18 Visit Rola ROOT 350.1.13.10 [place] [id number] [facility] [place] [address] [facility] 2021-11-28 2021-11-28 Ancillary Therapist, Adc Pulmonary [facility] 1.2.840.114 [id number] Univers 10:00:00 11:30:45 Visit Lexi Vaca 350.1.13. 10 ity of [facility] [place] [id number] Me dical NAL 296 [facility] 2021-11-28 2021-11-28 Catia Designer 2, Adc Lab [facility] 1.2.840.114 [id number] Univers 11:00:00 11:15:00 Visit Maral Garsia 350.1.13.10 ity of [place] [id number] Dc dical NAL 353 [facility] 2021-11-28 2021-11-28 Outpatient R MIKEY [facility] [id number] Univers 10:00:00 10:00:00 LEXI ity of [facility] 2021-11-24 2021-11-24 Ancillary Therapist, [facility] Pulmonary [facility] 1.2.840.114 [id number] [facility] 11:00:00 13:01:57 Visit Lexi Vaca 350.1.13. 10 it[place] of [place] [id number] Dc dical NAL 296 [facility] 2021-11-24 2021-11-24 Orders Doctor REYES 1.2.840.114 [id number] Univers 00:00:00 00:00:00 Only Unassigned, TOYA 350.1.13.10 ity of [place] [facility] 4.2.7.2.686 Adelso as [phone] [address] 2021-11-22 2021-11-22 Refindy Quintana [facility] 1.2.840.114 [id number] Univers 00:00:00 00:00:00 Ya RODRIGUEZ 350.1.13.10 i ty of [place] [id number] Dc dical NAL 085 [facility] 2021-11-21 2021-11-21 Ancillary Therapist, [facility] Pulmonary [facility] 1.2.840.114 [id number] Univers 10:00:00 11:38:20 Visit Lexi Vaca 350.1.13. 10 ity of [place] [id number] Dc dical NAL 296 [facility] 2021-11-19 2021-11-19 Refindy Hall [facility] 1.2.840.114 [id number] Univers 00:00:00 00:00:00 Liborio RODRIGUEZ 350.1.13.10 i ty of [facility] 4.[place].2.[place] [id number] [facility] 044 [facility] 2021-11-16 2021-11-16 Outpatient R MIKEY [facility] [id number] Univers 10:00:00 11:59:47 LEXI itrohan [facility] 2021-11-16 2021-11-16 Ancillary Therapist, [facility] Pulmonary [facility] 1.2.840.114 [id number] Univers 10:00:00 11:59:47 Visit Lexi Vaca 350.1.13. 10 ity of [place] [phone] [facility] 296 [facility] 2021-11-16 2021-11-16 Orders Doctor PULLIAM 1.2.840.114 [id number] Univers 00:00:00 00:00:00 Only Unassigned, TOYA 350.1.13.10 ity of [facility] 4.2.7.2.686 [place] as [phone] [address] 2021-11-14 2021-11-14 Ancillary Therapist, [facility] Pulmonary [facility] 1.2.840.114 [id number] Univers 10:00:00 11:49:36 Visit Lexi Vaca 350.1.13. 10 ity [facility] [place] [phone] [facility] 296 [facility] 2021-11-14 2021-11-14 [facility] [id number] Univers 10:00:00 10:00:00 LEXI [facility] 2021-11-12 2021-11-12 Reggie Hall [facility] 1..840.114 [id number] Univers 00:00:00 00:00:00 Liborio RODRIGUEZ 350.1.13.10 i ty of [place] [id number] [address] 2021-11-10 2021-11-10 Outpatient R MIKEY [facility] [id number] Univers 10:00:00 11:11:06 LEXI aranda [facility] 2021-11-10 2021-11-10 Ancillary Therapist, [facility] Pulmonary [facility] 1.2.840.114 [id number] Univers 10:00:00 11:11:06 Visit Lexi Vaca 350.1.13. 10 ity of [place] [id number] [address] 2021-11-07 2021-11-07 Outpatient Ab VACA [facility] [id number] Univers 10:00:00 11:55:14 LEXI aranda [facility] 2021-11-07 2021-11-07 Ancillary Therapist, [facility] Pulmonary [facility] 1.2.840.114 [id number] Univers 10:00:00 11:55:14 Visit Lexi Vaca 350.1.13. 10 it[place] of [place] [phone] [address] 2021-11-07 2021-11-07 Orders Doctor REYES 1.2.840.114 [id number] Univers 00:00:00 00:00:00 Only Unassigned, TOYA 350.1.13.10 ity of [place] [facility] 4.2.7.2.686 [place] as [phone] [address] 2021-11-03 2021-11-03 Telephone [facility] 1.2.726.491 [id number] Univers 00:00:00 00:00:00 Summer RODRIGUEZ 350.1.13.10 i ty of [place] [phone] [address] 2021-11-02 2021-11-02 Outpatient Ab VACA [facility] [id number] Univers 09:00:00 11:11:30 LEXI aranda [facility] 2021-11-02 2021-11-02 Ancillary Therapist, [facility] Pulmonary [facility] 1.2.840.114 [id number] Univers 09:00:00 11:11:30 Visit Lexi Vaca 350.1.13. 10 ity of [facility] 4.[place].2.[place] [id number] Dc dical [address] 2021-11-02 2021-11-02 Outpatient R LOWELL [facility] [id number] Univers 11:00:00 11:00:00 HASMUKH ity of [facility] 2021-11-02 2021-11-02 Orders Doctor REYES 1.2.840.114 [id number] Univers 00:00:00 00:00:00 Only Unassigned, TOYA 350.1.13.10 ity of [place] [facility] 4.2.7.2.686 Adelso as [phone] [facility] [address] [place] 2021-11-01 2021-11-01 [facility] 1.2.840.114 [id number] Univers 08:52:21 23:59:00 Encounter Songcarimargarita JENNIFER 350.1.13.10 ity of [facility] 4.2.7.2.[place] [id number] [facility] [address] [place] 2021-11-01 2021-11-01 [facility] 1.2.840.114 [id number] Univers 08:52:08 23:59:00 Encounter Dariana MANOJTON 350.1.13.10 ity of [facility] 4.2.[place].2.[place] [phone] [facility] [address] [place] 2021-11-01 2021-11-01 [facility] 1.2.840.114 [id number] Univers 08:51:53 08:51:53 Encounter Songcarimargarita ARANDATON 350.1.13.10 ity of [facility] 4.2.7.2.[place] [id number] [facility] [address] [place] 2021-11-01 2021-11-01 Outpatient R [facility] [id number] Univers 08:51:26 08:51:26 DARIANA aranda o f [facility] 2021-11-01 2021-11-01 [facility] [id number] Univers 08:51:26 08:51:26 SONGGAMAL ity o f [facility] 2021-11-01 2021-11-01 Hospital [facility] 1.2.840.114 [id number] Univers 08:51:26 08:51:26 Encounter Dariana RODRIGUEZ 350.1.13.10 ity of [place] [id number] [facility] [address] [place] 2021-11-01 2021-11-01 [facility] [id number] Univers 00:00:00 00:00:00 EDUARDOMARGARITA leandery o f [facility] 2021-11-01 2021-11-01 Patient [facility] 1.2.840.114 [id number] Univers 00:00:00 00:00:00 Secure Msg Dariana RODRIGUEZ 350.1.13.10 ity of [place] [phone] Dc dical NAL 059 [facility] 2021-10-31 2021-10-31 Outpatient R LOWELL [facility] [id number] Univers 11:00:00 11:52:17 HASMUKH aranda [facility] 2021-10-31 2021-10-31 Ancillary Halina Leavitt [facility] 1.2.84 0.114 [id number] Univers 11:00:00 11:52:17 Visit Hasmukh Etienne 350.1.13.10 ity of [place] [id number] Dc dical NAL 179 [facility] 2021-10-26 2021-10-26 Catia Designer 2, Adc Lab [facility] 1.2.840.114 [id number] Univers 14:00:00 14:15:00 Visit Unknown, Trudy RODRIGUEZ 350.1.13.1 0 ity of [place] [id number] Dc dical NAL 353 [facility] 2021-10-26 2021-10-26 Outpatient R KASSANDRA, [facility] [id number] Univers 14:00:00 14:00:00 ATTENDING rosi [facility] 2021-10-26 2021-10-26 Ancillary Florence Chris [facility] 1.2.840 .114 [id number] Univers 13:00:00 13:59:53 Visit Hasmukh Etienne 350.1.13.10 ity of [place] [id number] Dc dical NAL 179 [facility] 2021-10-26 2021-10-26 Telephone Kenneth [facility] 1.2.101.414 [id number] Univers 00:00:00 00:00:00 Summer RODRIGUEZ 350.1.13.10 i ty of [place] [id number] Dc dical NAL 296 [facility] 2021-10-26 2021-10-26 Orders Doctor REYES 1.2.840.114 [id number] Univers 00:00:00 00:00:00 Only Unassigned, TOYA 350.1.13.10 ity of [place] [facility] 4.2.7.2.686 [place] as [phone] [address] 2021-10-24 2021-10-24 Outpatient R TESS [facility] [id number] Univers 00:00:00 00:00:00 DARIANA aranda o f [facility] 2021-10-24 2021-10-24 Refill [facility] 1.2.840.114 [id number] Univers 00:00:00 00:00:00 Liborio RODRIGUEZ 350.1.13.10 i ty of [place] [id number] Dc dical NAL 044 [facility] 2021-10-24 2021-10-24 Refill [facility] 1.2.840.114 [id number] Univers 00:00:00 00:00:00 Liborio RODRIGUEZ 350.1.13.10 i ty of [place] [id number] Dc dical NAL 044 [facility] 2021-10-19 2021-10-19 Ancillary Halina Leavitt [facility] 1.2.84 0.114 [id number] Univers 11:00:00 13:23:38 Visit Hasmukh Etienne 350.1.13.10 ity of [facility] 4.2.7.2.[place] [id number] Dc dical NAL 179 [facility] 2021-10-19 2021-10-19 Outpatient R ETIENNE [facility] [id number] Univers 11:00:00 11:00:00 HASMUKH rosi [facility] 2021-10-11 2021-10-11 Outpatient R EVELINE LUCIO [facility] [id number] Univers 13:30:00 14:41:51 DEBORAH LUCIOLANCE rosi [facility] 2021-10-11 2021-10-11 Office Khadijah [facility] 1.2.840.114 [id number] Univers 13:30:00 14:41:51 Visit Eveline RODRIGUEZ 350.1.13.10 ity [facility] [place].2.[place] [phone] Dc dical NAL 044 [facility] 2021-10-11 2021-10-11 Outpatient R KHADIJAH, EVELINE [facility] [id number] Univers 13:30:00 13:30:00 KHADIJAH MANDYDelroy [facility] 2021-10-06 2021-10-06 Telephone Tess [facility] 1.2.846.407 [id number] Univers 00:00:00 00:00:00 Dariana RODRIGUEZ 350.1.13.10 ity of [place] [id number] Dc dical NAL 059 [facility] 2021-10-06 2021-10-06 Transition MELANIE Ty 1.2.840.114 [id number] Univers 00:00:00 00:00:00 of Kortney VICKERS 350.1.13.10 it y of [place] [id number] [place] [address] [place] 2021-10-04 2021-10-05 Outpatient X KB [facility] TATE [id number] Univers 04:33:00 15:10:00 MARISELA [facility] 2021-10-04 2021-10-05 Emergency Xavier Tejada [facility] 1.2.840. 114 [id number] Univers 04:33:00 15:10:00 Clifton Quilesolga lidia RODRIGUEZ 350.1.13.10 ity of [place] 4.2.7.2.686 [facility] [id number] [place] 683471 [place] 2021-10-05 2021-10-05 Outpatient R [facility] [id number] Univers 13:00:00 13:00:00 ity of [facility] 2021-10-04 2021-10-04 Nurse REYES Lagunas 1.2.840.114 [id number] Univers 00:00:00 00:00:00 Triage Marylin PITTMAN 350.1.13.10 it y of HOSPITAL 4.2.7.2.686 [place] as [phone] [facility] [address] 2021-10-04 2021-10-04 Letter Testing, [facility] 1.2.840.114 [id number] Univers 00:00:00 00:00:00 (Out) [place] HEALTH 350.1.13.10 i ty of Pulmonary CLINICS [place].2.[place] [id number] Med ical [address] [place] 2021-10-04 2021-10-04 Patient Doctor [facility] 1.2.590.704 [id number] Univers 00:00:00 00:00:00 Secure Msg Unassigned, HEALTH 350.1.13.10 ity of [place] CLINICS 4.2.7.2.686 [facility] [id number] [place] 683473 [place] 2021-10-03 2021-10-03 Outpatient R LOWELL [facility] [id number] Univers 13:00:00 14:20:09 HASMUKH ity [facility] 2021-10-03 2021-10-03 Ancillary Chuck Chris [facility] 1.2.840. 114 [id number] Univers 13:00:00 14:20:09 Visit Hasmukh Etienne 350.1.13.10 ity of [facility] 4.[place].2.[place] [id number] Dc dical NAL 179 [facility] 2021-10-03 2021-10-03 Outpatient R LOWELL [facility] [id number] Univers 13:00:00 14:20:09 HASMUKH ity of [facility] 2021-10-01 2021-10-01 [facility] 1.2.840.114 [id number] Univers 00:00:00 00:00:00 [facility] 350.1.13.10 ity of [place] [id number] Dc dical NAL 044 [facility] 2021-10-01 2021-10-01 Refindy [facility] 1.2.840.114 [id number] Univers 00:00:00 00:00:00 Eveline [facility] 350.1.13.10 ity [place] [id number] Dc dical NAL 044 [facility] 2021-09-30 2021-09-30 Patient Doctor [facility] 1.2.840.114 [id number] Univers 00:00:00 00:00:00 Secure Msg Unassigned, MULTISPEC 350.1.13.10 ity of [place] C[place] [id number] [address] [facility]ES [facility] 2021-09-29 2021-09-29 Outpatient R YA QUINTANA [facility] 10 [id number] Univers 11:00:00 11:42:05 YA QUINTANA i ty of [facility] 2021-09-29 2021-09-29 Office Bairon [facility] 1.2.840.114 [id number] Univers 11:00:00 11:42:05 Visit Ya RODRIGUEZ 350.1.13.10 i ty [facility] 4.2.7.2.[place] [phone] Dc dical NAL 085 [facility] 2021-09-292021-09-29 Outpatient R YA QUINTANA [facility] 10 [id number] Univers 11:00:00 11:00:00 YA QUINTANA i ty of [facility] 2021-09-29 2021-09-29 Telephone Bairon [facility] 1.2.365.987 [id number] Univers 00:00:00 00:00:00 Ya RODRIGUEZ 350.1.13.10 i ty of [place] [id number] Dc dicnc NAL 085 [facility] 2021-09-28 2021-09-28 Ancillary Nury Cortez [facility] 1.. 840.114 [id number] Univers 16:00:00 16:45:00 Visit Hasmukh Etienne 350.1.13.10 ity [facility] 4.2.7.2.[place] [id number] Dc dicnc NAL 179 [facility] 2021-09-28 2021-09-28 [facility] [id number] Univers 16:00:00 16:00:00 [facility] 2021-09-27 2021-09-27 Outpatient R [facility] [id number] Univers 15:00:00 15:50:24 [facility] 2021-09-27 2021-09-27 Outpatient R [facility] [id number] Univers 15:00:00 15:50:24 [facility] 2021-09-27 2021-09-27 Office [facility] 1.2.840.114 [id number] Univers 15:00:00 15:50:24 Visit [facility] 350.1.13.10 it y of [place] 4.2.7.2.686 Adelso as NENO?BLEA [phone] Dc dical KNEY 044 [facility] 2021-09-26 2021-09-26 Ancillary Nury Cortez [facility] 1.2. 840.114 [id number] Univers 14:30:00 15:15:00 Visit Hasmukh Etienne 350.1.13.10 ity of [place].2.[place] [id number] Dc dical NAL 179 [facility] 2021-09-23 2021-09-23 Reggie Quintana [facility] 1.2.840.114 [id number] Univers 00:00:00 00:00:00 Shiwachrystal NEWELLPEC 350.1.13.10 it[place] of [place].2.[place] C[place] [phone] Miguel goodwin AND JORGE [address] [place] [facility] 2021-09-23 2021-09-23 Reggie [facility]UN[facility] 1.2.840.114 [id number] Univers 00:00:00 00:00:00 Liborio RODRIGUEZ 350.1.13.10 i ty [facility] 4.2.7.2.[place] [id number] Dc dical NAL 044 [facility] 2021-09-22 2021-09-22 Refindy [facility]UN[facility] 1.2.840.114 [id number] Univers 00:00:00 00:00:00 Kavon RODRIGUEZ 350.1.13.10 i ty of [facility] 4.2.7.2.[place] [phone] Dc dical NAL 044 [facility] 2021-09-21 2021-09-21 Outpatient R LOWELL [facility] [id number] Univers 16:00:00 16:47:06 HASMUKH aranda of [facility] 2021-09-21 2021-09-21 Ancillary Nury Cortez [facility] 1.2. 840.114 [id number] Univers 16:00:00 16:47:06 Visit Hasmukh Etienne 350.1.13.10 ity of [facility] 4.2.7.2.[place] [phone] Dc dical NAL 179 [facility] 2021-09-20 2021-09-20 Outpatient Ab LEVY [facility] [id number] Univers 13:30:00 14:59:35 KAVON itrohan of [facility] 2021-09-20 2021-09-20 Outpatient Ab LEVY [facility] [id number] Univers 13:30:00 14:59:35 KAVON ity of [facility] 2021-09-20 2021-09-20 Office Mildred [facility] 1.2.840.114 [id number] Univers 13:30:00 14:59:35 Visit Kavonchrystal RODRIGUEZ 350.1.13.10 i ty of [place].2.[place] [phone] Me dical NAL 044 [facility] 2021-09-19 2021-09-19 Ancillary Nury Cortez Marcelo [facility] 1.2. 840.114 [id number] Univers 16:00:00 16:45:00 Visit Hasmukh Etienne 350.1.13.10 ity of [place].2.[place] [id number] Me dical NAL 179 [facility] 2021-09-14 2021-09-14 Ancillary Chuck Chris [facility] 1.2.840. 114 [id number] Univers 13:45:00 14:44:46 Visit Hasmukh Etienne 350.1.13.10 ity of [place].2.[place] [id number] Me dical NAL 179 [facility] 2021-09-12 2021-09-12 Ancillary Florence Chris [facility] 1.2.840 .114 [id number] Univers 11:15:00 13:55:27 Visit Hasmukh Etienne 350.1.13.10 ity of [place].2.[place] [id number] Me dical NAL 179 [facility] 2021-09-07 2021-09-07 Ancillary Chuck Chris [facility] 1.2.840. 114 [id number] Univers 13:45:00 14:30:00 Visit Hasmukh Etienne 350.1.13.10 it[place] of [place].2.[place] [id number] Me dical NAL 179 [facility] 2021-09-06 2021-09-06 Telephone Isabel [facility] 1.2.840.114 [id number] Univers 00:00:00 00:00:00 Liborio RODRIGUEZ 350.1.13.10 i ty [facility] 4.2.7.2.[place] [phone] Dc dical NAL 044 [facility] 2021-09-05 2021-09-05 Catia Designer 2, Adc Lab [facility] 1.2.840.114 [id number] Univers 16:15:00 16:30:00 Visit Liborio Hall [id number] [facility] [id number] [phone] Dc dical NAL 353 [facility] 2021-09-05 2021-09-05 Outpatient R ISABEL [facility] [id number] Univers 15:20:00 16:16:29 LIBORIO aranda [facility] 2021-09-05 2021-09-05 Office Isabel [facility] 1..840.114 [id number] Univers 15:20:00 16:16:29 Visit Liborio RODRIGUEZ [id number] i [facility] [id number] [phone] Dc dicnc NAL 044 [facility] 2021-09-05 2021-09-05 Outpatient R LOWELL [facility] [id number] Univers 11:00:00 11:55:12 HASMUKH aranda [facility] 2021-09-05 2021-09-05 Ancillary Chuck Chris [facility] 1..840. 114 [id number] Univers 11:00:00 11:45:00 Visit Hasmukh Etienne 350.1.13.10 ity of [id number] [phone] Dc dical NAL 179 [facility] 2021-09-05 2021-09-05 Outpatient R LOWELL [facility] [id number] Univers 11:00:00 11:00:00 [facility]-08-24 2021-08-24 Ancillary Nury Cortez [facility] 1.. 840.114 [id number] Univers 13:45:00 14:30:00 Visit Hasmukh Etienne Richar RODRIGUEZ 350.1.13.10 ity of [id number] [phone] Dc dical NAL 179 [facility] 2021-08-22 2021-08-22 Ancillary Chuck Chris [facility] 1.2.840. 114 [id number] Univers 14:30:00 15:15:00 Visit Lowell Hasmukh RODRIGUEZ [id number] ity [id number] [phone] Dc dical NAL 179 [facility] 2021-08-22 2021-08-22 Outpatient R LOEWLL [facility] [id number] Univers 14:30:00 14:30:00 HASMUKH ity of [facility] 2021-08-17 2021-08-17 Ancillary Aries Chuck Funez [facility] 1.2.840. 114 [id number] Univers 09:30:00 10:38:41 Visit Etienne Hasmukh RODRIGUEZ [id number] it[id number] [phone] Dc dical NAL 179 [facility] 2021-08-10 2021-08-10 Ancillary Chuck Chris [facility] 1.2.840. 114 [id number] Univers 09:30:00 10:15:00 Visit Hasmukh Etienne 350.1.13.10 it[place] [id number] Dc dical NAL 179 [facility] 2021-08-08 2021-08-08 Catia Designer Simi [facility] 1.2.8 40.114 [id number] Univers 14:15:00 14:30:00 Visit Maral Garsia [id number] it[id number] [phone] Dc dical NAL 353 [facility] 2021-08-08 2021-08-08 Outpatient R [facility] CENTER [id number] Univers 14:15:00 14:15:00 VINITHA ity of [facility] 2021-08-08 2021-08-08 Ancillary Chuck Chris [facility] 1.2.840. 114 [id number] Univers 13:00:00 13:45:00 Visit Hasmukh Etienne 350.1.13.10 ity of [place] [id number] Dc dical NAL 179 [facility] 2021-08-08 2021-08-08 Orders Doctor REYES 1.2.840.114 [id number] Univers 00:00:00 00:00:00 Only Unassigned, TOYA 350.1.13.10 [facility] 4.2.7.2.686 Adelso as [phone] [address] 2021-08-06 2021-08-06 Ref[facility] 1.2.840.114 [id number] Univers 00:00:00 00:00:00 Liborio RODRIGUEZ 350.1.13.10 i ty of [place] [phone] Dc dical NAL 044 [facility] 2021-08-03 2021-08-03 Outpatient R LOWELL [facility] [id number] Univers 11:00:00 11:47:32 HASMUKH ity [facility] 2021-08-03 2021-08-03 Outpatient R LOWELL [facility] [id number] Univers 11:00:00 11:47:32 HASMUKH ity [facility] 2021-08-03 2021-08-03 Ancillary Chuck Chris [facility] 1.2.840. 114 [id number] Univers 11:00:00 11:45:00 Visit Hasmukh Etienne 350.1.13.10 ity of [place] [id number] Dc dical NAL 179 [facility] 2021-08-03 2021-08-03 Outpatient R LOWELL [facility] [id number] Univers 11:00:00 11:00:00 HASMUKH ity [facility] 2021-08-01 2021-08-01 Ancillary Halina Leavitt [facility] 1.2.84 0.114 [id number] Univers 11:00:00 11:45:00 Visit Hasmukh Etienne 350.1.13.10 ity of [place] [phone] Dc dical NAL 179 [facility] 2021-08-01 2021-08-01 Outpatient R LOWELL [facility] [id number] Univers 11:00:00 11:00:00 HASMUKH ity [facility] 2021-08-01 2021-08-01 Telephone Isabel [facility] 1.2.840.114 [id number] Univers 00:00:00 00:00:00 Liborio RODRIGUEZ 350.1.13.10 i ty of [place] [phone] Dc dical NAL 044 [facility] 2021-07-27 2021-07-27 Ancillary Chuck Chris [facility] 1.2.840. 114 [id number] Univers 11:00:00 11:45:00 Visit Hasmukh Etienne 350.1.13.10 ity of [place] [phone] Dc dical NAL 179 [facility] 2021-07-25 2021-07-25 Ancillary Chuck Chris [facility] 1.2.840. 114 [id number] Univers 11:00:00 12:59:36 Visit Hasmukh Etienne 350.1.13.10 ity [facility] 4.2.7.2.[place] [phone] Dc dical NAL 179 [facility] 2021-07-24 2021-07-24 Outpatient R JULIANE [facility] [id number] Univers 13:20:00 13:20:00 GAYATHRI ity [facility] 2021-07-17 2021-07-17 Ancillary Halina Leavitt [facility] 1.2.84 0.114 [id number] Univers 15:15:00 17:36:17 Visit Hasmukh Etienne JENNIFER 350.1.13.10 ity of [place] [id number] Dc dical NAL 179 [facility] 2021-07-17 2021-07-17 Outpatient R LOWELL [facility] [id number] Univers 15:15:00 17:36:17 HASMUKH aranda [facility] 2021-07-17 2021-07-17 Outpatient R LOWELL [facility] [id number] Univers 15:15:00 17:36:17 HASMUKH aranda [facility] 2021-07-17 2021-07-17 Outpatient R LOWELL [facility] [id number] Univers 15:15:00 15:15:00 HASMUKH rohan [facility] 2021-07-14 2021-07-14 Orders Doctor REYES 1.2.840.114 [id number] Univers 00:00:00 00:00:00 Only Unassigned, TOYA 350.1.13.10 ity of [place] [facility] 4.2.7.2.686 Adelso as [phone] [facility] [address] 2021-07-11 2021-07-11 Refill Isabel [facility] 1.2.840.114 [id number] Univers 00:00:00 00:00:00 Liborio RODRIGUEZ 350.1.13.10 i ty of [place] [id number] Dc dical NAL 044 [facility] 2021-07-07 2021-07-07 Patient Doctor HANG 1.2.840.114 [id number] Univers 00:00:00 00:00:00 Secure Msg Unassigned, MULTISPEC 350.1.13.10 ity of [place] [phone] [facility] AND [place] [address] [facility] 2021-07-05 2021-07-05 Refill Isabel [facility] 1.2.840.114 [id number] Univers 00:00:00 00:00:00 Liborio RODRIGUEZ 350.1.13.10 i ty of [place] [phone] Dc dicnc NAL [address] [facility] 2021-07-05 2021-07-05 [facility] 1.2.840.114 [id number] Univers 00:00:00 00:00:00 Liborio RODRIGUEZ 350.1.13.10 i ty of [place] [phone] [facility] [address] [facility] 2021-07-05 2021-07-05 Telephone [facility] 1.2.840.114 [id number] Univers 00:00:00 00:00:00 [facility] 350.1.13.10 ity of [place] 4.2.7.2.686 Adelso as NENO?BLEA [phone] [facility] HILARIO 092 [facility] 2021-07-04 2021-07-04 [facility] 1.2.840.114 [id number] Univers 00:00:00 00:00:00 Liborio RODRIGUEZ 350.1.13.10 i ty of [place] [phone] [facility] 044 [facility] 2021-07-03 2021-07-03 Catia Designer Alejandro, Simi Lab Main [facility] 1.2.8 40.114 [id number] Univers 14:30:00 14:45:00 Visit Maral Garsia 350.1.13.10 ity of [place] [id number] [facility] 353 [facility] 2021-07-03 2021-07-03 Outpatient R SAYRA [facility] [id number] Univers 14:30:00 14:30:00 MARAL aranda of [facility] 2021-07-03 2021-07-03 Orders Doctor PULLIAM 1.2.840.114 [id number] Univers 00:00:00 00:00:00 Only Unassigned, TOYA 350.1.13.10 ity of [place] [facility] 4.2.7.2.686 [place] as [phone] [address] 2021-06-28 2021-06-28 Telephone [facility] 1.2.840.114 [id number] Univers 00:00:00 00:00:00 Liborio RODRIGUEZ 350.1.13.10 i ty of [facility] 4.2.7.2.[place] [phone] Dc dicjennifer HERNANDEZ [address] [place] [address] 2021-06-28 2021-06-28 Telephone [facility] 1.2.840.114 [id number] Univers 00:00:00 00:00:00 Liborio RODRIGUEZ 350.1.13.10 i ty of [place] [phone] Dc dic[address] 2021-06-27 2021-06-27 Outpatient MICHAEL BAUMAN [facility] [id number] Univers 16:00:00 17:03:45 MICHAEL RIZZO [facility] 2021-06-27 2021-06-27 Office [facility] 1.2.840.114 [id number] Univers 16:00:00 17:03:45 Visit [facility] 350.1.13.10 ity [facility] 4.2.7.2.686 Adelso as NENO?BLEA [phone] Dc darshana RICH [address] [place] [address] OFFICE [facility] 2021-06-27 2021-06-27 Outpatient MICHAEL BAUMAN [facility] [id number] Univers 16:00:00 16:00:00 MICHAEL RIZZO [facility] 2021-06-26 2021-06-26 Refindy Lucio [facility] 1.2.840.114 [id number] Univers 00:00:00 00:00:00 Eveline RODRIGUEZ 350.1.13.10 ity of [place] [phone] Dc dicnc NAL [address] [place] [address] 2021-06-26 2021-06-26 Refindy Lucio [facility] 1.2.840.114 [id number] Univers 00:00:00 00:00:00 Eveline RODRIGUEZ 350.1.13.10 ity of [facility] 4.2.7.2.[place] [phone] Dc dical NAL 044 [facility] 2021-06-22 2021-06-22 Outpatient R [facility] 041 [id number] Univers 10:06:41 23:59:00 CECILE ity of [facility] 2021-06-22 2021-06-22 [facility] 1.2.840.114 [id number] Univers 10:06:41 23:59:00 Encounter cecile SPECIALTY 350.1.13.10 ity of [facility] [place] C[place] AT [phone] Dc fransiscojennifer SEGOVIA 809 [facility] 2021-06-22 2021-06-22 Outpatient R [facility] [id number] Univers 10:00:00 10:38:05 GAYATHRI ity [facility] 2021-06-22 2021-06-22 Office [facility] 1.2.840.114 [id number] Univers 10:00:00 10:38:05 Visit Gayathri SPECIALTY 350.1.13.10 ity of [place] C[place] AT [phone] Dc darshana SEGOVIA 198 [facility] 2021-06-22 2021-06-22 Outpatient R [facility] [id number] Univers 10:00:00 10:00:00 GAYATHRI ity [facility] 2021-06-22 2021-06-22 Outpatient R [facility] [id number] Univers 10:00:00 10:00:00 GAYATHRI ity [facility] 2021-06-20 2021-06-20 Telephone [facility]UN[facility] 1.2.840.114 [id number] Univers 00:00:00 00:00:00 Liborio RODRIGUEZ 350.1.13.10 i ty of [place] [phone] Dc dicjennifer NAL 231 [facility] 2021-06-19 2021-06-19 Outpatient R EVELINE LUCIO [facility] [id number] Univers 14:00:00 15:06:35 EVELINE LUCIO [facility] 2021-06-19 2021-06-19 Outpatient R EVELINE LUCIO [facility] [id number] Univers 14:00:00 15:06:35 EVELINE LUCIO [facility] 2021-06-19 2021-06-19 Office [facility] 1.2.840.114 [id number] Univers 14:00:00 15:06:35 Visit Deborahmariannageorge JENNIFER 350.1.13.10 ity of [place] [phone] [address] 2021-06-19 2021-06-19 Telephone [facility] 1.2.840.114 [id number] Univers 00:00:00 00:00:00 Liborio RODRIGUEZ 350.1.13.10 i ty of [place] 4.[place].2.[place] [id number] [address] 2021-06-18 2021-06-18 Refill Elidi[facility]or[facility] 1.2.840.114 [id number] Univers 00:00:00 00:00:00 Liborio RODRIGUEZ 350.1.13.10 i ty of [place] [id number] [address] 2021-06-18 2021-06-18 [facility] 1.2.840.114 [id number] Univers 00:00:00 00:00:00 Jaxon TREJO 350.1.13.10 i ty of [facility] 4.2.7.2.686 [place] [id number] [address] 2021-06-16 2021-06-16 Telephone [facility] 1.2.840.114 [id number] Univers 00:00:00 00:00:00 Liborio RODRIGUEZ 350.1.13.10 i ty of [facility] 4.2.7.2.[place] [id number] Dc dical NAL [address] [facility]ILDING 2021-06-15 2021-06-15 Reggie Quintana [facility] 1.2.840.114 [id number] Univers 00:00:00 00:00:00 Shiwan MULTISPEC 350.1.13.10 ity of [place] [id number] [facility] AND PATEL [address] [facility] 2021-06-13 2021-06-13 Transition MELANIE Mejia 1.2.840.114 [id number] Univers 00:00:00 00:00:00 of Care Jared Marcelo VICKERS 350.1.13.10 ity of [place]2.7.2.[place] [id number] [facility] [address] 2021-06-09 2021-06-12 Inpatient U [facility] [id number] Univers 17:51:00 12:45:00 HOWARD aranda [facility] 2021-06-09 2021-06-12 [facility] 1.2.840.114 [id number] Univers 17:51:00 12:45:00 Encounter Howard RODRIGUEZ 350.1.13.10 ity of [facility] 4.2.7.2.[place] [phone] [facility] [address] 2021-06-12 2021-06-12 Patient Doctor REYES 1.2.840.114 [id number] Univers 00:00:00 00:00:00 Secure Msg Unassigned, TOYA 350.1.13.10 ity of [place] [facility] 4.2.7.2.686 [place] as [id number] [facility] [address] 2021-06-07 2021-06-07 [facility] [id number] Univers 14:50:10 23:59:00 LIBORIO aranda [facility] 2021-06-07 2021-06-07 [facility] JessacariUNIVERSITY OF [facility] 1.2.840.114 [id number] Univers 14:50:10 23:59:00 Encounter Liborio RODRIGUEZ 350.1.13.10 it[place].7.2.[place] C[place]US [id number] [facility] [address] 2021-06-07 2021-06-07 Catia Designer Alejandro, Adc Lab Main [facility] 1.2.8 40.114 [id number] Univers 15:15:00 15:30:00 Visit Liborio Hall MANOJFLORENCIO 350.1.13.10 ity of [place] [id number] Dc dical NAL 353 [facility] 2021-06-06 2021-06-06 Office [facility]UN[facility] 1.2.840.114 [id number] Univers 11:00:00 12:16:06 Visit Liborio RODRIGUEZ 350.1.13.10 i ty of [place] 4[place].2.[place] 441.8333177 Dc dical NAL 044 [facility] 2021-06-06 2021-06-06 Outpatient R ELIDIADENVERMINDY [facility] [id number] Univers 11:00:00 12:16:06 LIBORIO aranda [facility] 2021-06-06 2021-06-06 Outpatient R ISABEL [facility] [id number] Univers 11:00:00 12:16:06 LIBORIO aranda [facility] 2021-06-06 2021-06-06 Outpatient R ELIDIADENVERMINDY [facility] [id number] Univers 11:00:00 12:16:06 LIBORIO aranda [facility] 2021-06-06 2021-06-06 Outpatient R ELIDIADENVERMINDY [facility] [id number] Univers 11:00:00 11:00:00 LIBORIO aranda [facility] 2021-06-06 2021-06-06 Outpatient R ISABEL [facility] [id number] Univers 11:00:00 11:00:00 LIBORIO aranda [facility] 2021-06-06 2021-06-06 Outpatient R ISABEL [facility] [id number] Univers 11:00:00 11:00:00 LIBORIO aranda [facility] 2021-06-01 2021-06-01 Patient [facility] 1.2.840.114 [id number] Univers 00:00:00 00:00:00 Secure Msg Liborio ARANDAFLORENCIO 350.1.13.10 ity of [place].2.[place] [id number] [address] 2021-05-31 2021-05-31 [facility] [id number] [id number] Univers 15:00:00 16:12:40 LIBORIO aranda [facility] 2021-05-31 2021-05-31 Office [facility] 1.2.840.114 [id number] Univers 15:00:00 16:12:40 Visit Liborio JENNIFER 350.1.13.10 i ty of [place].2.[place] [id number] [address] 2021-05-31 2021-05-31 Outpatient [facility] [id number] [id number] Univers 15:00:00 15:00:00 LIBORIO aranda [facility] 2021-05-18 2021-05-18 [facility] 1.2.840.114 [id number] Univers 00:00:00 00:00:00 Liborio RODRIGUEZ 350.1.13.10 i ty of [place].2.[place] [id number] [address] 2021-05-18 2021-05-18 [facility] 1.2.840.114 [id number] Univers 00:00:00 00:00:00 Liborio RODRIGUEZ 350.1.13.10 i ty [place].2.[place] [id number] [address] 2021-05-18 2021-05-18 RefCarteret Health CarebriseidaBoston Children's Hospital 1.2.840.114 [id number] Univers 00:00:00 00:00:00 Liborio RODRIGUEZ 350.1.13.10 i ty [place] 4.[place].2.[place] 188.7560758 Dc dical NAL 044 [facility] 2021-05-18 2021-05-18 Refindy QuintanaUNIVERSITY OF NEW [facility]EX[facility] 1.2.840.114 [id number] Univers 00:00:00 00:00:00 Shiwan MULTISPEC 350.1.13.10 ity of [place] CENTER [id number] [facility] AND [address] [facility] 2021-05-18 2021-05-18 Refindy QuintanaUNIVERSITY OF NEW [facility]EX[facility] 1.2.840.114 [id number] Univers 00:00:00 00:00:00 Shiclaudia MULTISPEC 350.1.13.10 ity [facility] 4.2.7.2.[place] CENTER [id number] [address] [facility] 2021-05-17 2021-05-17 Catia Designer Alejandro, Simi Lab Main [facility] 1.2.8 40.114 [id number] Univers 14:15:00 14:30:00 Visit Maral Garsia 350.1.13.10 ity of [place] 4.[place].2.[place] [id number] Dc dical NAL 353 [facility] 2021-05-17 2021-05-17 Outpatient R SAYRA [facility] [id number] Univers 14:15:00 14:15:00 MARAL ity of [facility] 2021-05-17 2021-05-17 Orders Doctor PULLIAM 1.2.840.114 [id number] Univers 00:00:00 00:00:00 Only Unassigned, TOYA 350.1.13.10 ity of [place] [facility] 4.2.7.2.686 Adelso as [phone] [facility] [address] 2021-05-16 2021-05-16 Office [facility] 1.2.840.114 [id number] Univers 15:00:00 16:55:16 Visit Jaxon TREJO 350.1.13.10 i ty of [place].7.2.[place] [id number] [facility] [address] 2021-05-16 2021-05-16 Out[facility] [id number] Univers 15:00:00 16:55:16 JAXON rohan [facility] 2021-05-16 2021-05-16 Outpatient [facility] [id number] Univers 15:00:00 15:00:00 JAXON aranda [facility] 2021-05-12 2021-05-12 Transition TyMELANIE 1.2.840.114 [id number] Univers 00:00:00 00:00:00 of Care Nydia VICKERS 350.1.13.10 it y of [place].7.2.[place] [id number] [facility] [address] 2021-05-09 2021-05-11 Inpatient X AMOS [facility] TATE [id number] Univers 14:54:00 15:04:00 FREDO aranda [facility] 2021-05-09 2021-05-11 [facility] ZhouDomitila [facility] 1.2.8 40.114 [id number] Univers 14:54:00 15:04:00 Encounter Fredo Trinidad 350.1.13.10 ity of [facility] 4.2.7.2.[place] CAMPUS [id number] [facility] [address] 2021-05-05 2021-05-05 Patient [facility]UN[facility] 1.2.840.114 [id number] Univers 00:00:00 00:00:00 Secure Msg Liborio RODRIGUEZ 350.1.13.10 ity of [facility] 4.2.7.2.[place] [id number] Dc dical NAL 044 [facility] 2021-04-13 2021-04-13 Refill BaironUNIVERSITY OF [facility] 1.2.840.114 [id number] Univers 00:00:00 00:00:00 Ya RODRIGUEZ 350.1.13.10 i ty of [facility] 4.2.7.2.[place] [id number] Dc dical NAL 085 [facility] 2021-04-04 2021-04-04 Refill Isabel [facility] 1.2.840.114 [id number] Univers 00:00:00 00:00:00 Liborio RODRIGUEZ 350.1.13.10 i ty of [place] 4.2.7.2.[place] [id number] Dc dical NAL 044 [facility] 2021-03-31 2021-03-31 [facility] 1.2.840.114 [id number] Univers 00:00:00 00:00:00 Jaxon TREJO 350.1.13.10 i ty of [facility] 4.2.7.2.[place] [id number] [address] 2021-03-21 2021-03-21 [facility]UN[facility] 1.2.840.114 [id number] Univers 00:00:00 00:00:00 Shakeel RAMÍREZ 350.1.13.10 y of MEDICINE 4.2.7.2.686 [place] as CLINIC - [id number] [address] 2021-03-14 2021-03-14 [facility] 1.2.840.114 [id number] Univers 00:00:00 00:00:00 Jaxon TREJO 350.1.13.10 i ty of [facility] 4.2.7.2.[place] [id number] [address] 2021-03-07 2021-03-07 [facility] IsabelUN[facility] 1.2.840.114 [id number] [id number] Univers 00:00:00 00:00:00 Liborio RODIRGUEZ 350.1.13.10 i ty of [place] 4.[place].2.[place] [id number] Dc dical NAL 044 [facility] 2021-03-02 2021-03-02 Laboratory Only, Adc Pob2 Test [facility] 1.2 .840.114 [id number] Univers 15:45:00 15:45:00 Only Liborio Hall 350.1.13.10 ity of [facility] 4.2.7.2.[place] [id number] Dc dical NAL 225 [facility] 2021-03-02 2021-03-02 [facility] [id number] Univers 11:00:00 12:15:26 LIBORIO aranda [facility] 2021-03-02 2021-03-02 Outpatient [facility] [id number] [id number] Univers 11:00:00 11:00:00 LIBORIO rohan [facility] 2021-03-02 2021-03-02 Outpatient [facility] [id number] Univers 11:00:00 11:00:00 LIBORIO rohan [facility] 2021-03-02 2021-03-02 Orders Doctor REYES 1.2.840.114 [id number] Univers 00:00:00 00:00:00 Only Unassigned, TOYA 350.1.13.10 [facility] 4.2.7.2.686 [place] as [phone] [facility] [address] [place] 2021-02-15 2021-02-15 Office [facility] 1.2.840.114 [id number] Univers 13:30:00 13:45:00 Visit Jaxon TREJO 350.1.13.10 i ty [facility] [place].7.2.[place] [id number] [facility] [address] 2021-02-15 2021-02-15 Outpatient R [facility] [id number] Univers 13:30:00 13:30:00 JAXON rosi [facility] 2021-02-15 2021-02-15 Outpatient R [facility] [id number] Univers 13:30:00 13:30:00 JAXON rosi [facility] 2021-02-13 2021-02-13 Catia Designer Alejandro, Simi Lab Main [facility] 1.2.8 40.114 [id number] Univers 13:40:33 13:55:33 Visit Maral Garsia 350.1.13.10 ity [facility] [place] [id number] Dc dical NAL 353 [facility] 2021-02-13 2021-02-13 [facility] [id number] Univers 13:45:00 13:45:00 MARAL ity [facility] 2021-02-13 2021-02-13 Refindy Burton [facility] 1.2.840.114 [id number] Univers 00:00:00 00:00:00 Shakeel PRIMARY 350.1.13.10 it y [place] [phone] Dc dical [address] [place] [address] 2021-02-03 2021-02-03 Outpatient R YA QUIN[place] [facility] [id number] Univers 11:30:00 12:19:04 YA QUINTANA i ty of [facility] 2021-02-03 2021-02-03 Office Bairon [facility] 1.2.840.114 [id number] Univers 11:15:56 12:19:04 Visit Ya RODRIGUEZ 350.1.13.10 i ty of [place] [phone] Dc dical NAL 085 [facility] 2021-02-02 2021-02-02 Catia Designer 2, Adc Lab [facility] 1.2.840.114 [id number] Univers 14:19:44 16:42:57 Visit Liborio Hall 350.1.13.10 ity [facility] 4[place]2.[place] [phone] Dc dical NAL 353 [facility] 2021-02-02 2021-02-02 Catia Designer 2, [facility] 1.2.840.114 [id number] Univers 14:19:44 14:34:44 Visit Liborio Hall 350.1.13.10 ity [facility] 4[place]2.[place] [phone] Dc dical NAL 353 [facility] 2021-02-02 2021-02-02 Outpatient Ab HALL [facility] [id number] Univers 14:30:00 14:30:00 LIBORIO aranda [facility] 2021-02-02 2021-02-02 Outpatient Ab HALL [facility] [id number] Univers 13:20:00 14:20:07 LIBORIO aranda [facility] 2021-02-02 2021-02-02 [facility] 1.2.840.114 [id number] [facility] 13:05:13 14:20:07 Visit Liborio RODRIGUEZ 350.1.13.10 i ty [facility] 4.2.[place].2.[place] [phone] [address] 2021-02-02 2021-02-02 [facility] 1.2.840.114 [id number] Univers 00:00:00 00:00:00 Aubrie Y HEALTH 350.1.13.10 i ty of [facility] 4[place]2.7.2.[place] [phone] [facility] [address] [place] 2021-02-01 2021-02-01 Outpatient R [facility] [id number] Univers 09:03:31 23:59:00 AUBRIE ity [facility] 2021-02-01 2021-02-01 Outpatient R [facility] [id number] Univers 09:03:31 23:59:00 AUBRIE ity [facility] 2021-02-01 2021-02-01 [facility] 1.2.840.114 [id number] Univers 09:00:00 23:59:00 Encounter Aubrie Y HEALTH 350.1.13.10 ity of CLINICS [place] [id number] [facility] [address] 2021-01-23 2021-01-23 [facility] [id number] Univers 15:24:58 23:59:00 LUZMA rosi [facility] 2021-01-23 2021-01-23 [facility] 1.2.840.114 [id number] Univers 15:15:00 23:59:00 Encounter Luzma RODRIGUEZ 350.1.13.10 ity of [facility] 4.[place].7.2.[place] [phone] [facility] [address] 2021-01-23 2021-01-23 Outpatient R ETHAN [facility] [id number] Univers 14:20:00 16:21:39 LUZMA leanderrohan [facility] 2021-01-23 2021-01-23 Office Ethan [facility] 1.2.840.114 [id number] Univers 14:19:39 16:21:39 Visit Luzma RODRIGUEZ 350.1.13.10 ity [facility] [place] [phone] Dc dical NAL 231 [facility] 2021-01-23 2021-01-23 Orders Doctor REYES 1.2.840.114 [id number] Univers 00:00:00 00:00:00 Only Unassigned, TOYA 350.1.13.10 ity of [place] [facility] 4.2.7.2.686 [place] [phone] [facility] [address] 2021-01-15 2021-01-15 Emergency X Jo-Ann WHITEHEAD [facility] ERT [id number] Univers 15:11:00 19:02:00 ity of [facility] 2021-01-15 2021-01-15 Emergency Jo-Ann Whitehead [facility] 1.2.840.114 [id number] Univers 15:11:00 19:02:00 Dianna RODRIGUEZ 350.1.13.10 i ty [facility] [place] [id number] [facility] [address] 2021-01-09 2021-01-09 Emergency X NOHEMY [facility] ERT [id number] Univers 09:42:00 11:39:00 ELSY aranda [facility] 2021-01-09 2021-01-09 Emergency [facility] 1.2.840.114 [id number] Univers 09:42:00 11:39:00 Elsy RODRIGUEZ 350.1.13.10 ity [facility] [place] [id number] [facility] [address] 2020-12-20 2020-12-20 Outpatient R DANILO [facility] [id number] Univers 11:15:00 11:15:00 JAXON ity of [facility] 2020-12-20 2020-12-20 Office [place], [facility] 1.2.840.114 [id number] Univers 10:07:43 10:22:43 Visit Jaxon TREJO 350.1.13.10 i ty of [facility] [place].7.2.[place] [phone] [facility] [address] 2020-12-19 2020-12-19 Catia Designer Alejandro, Simi Lab Main [facility] 1.2.8 40.114 [id number] Univers 14:04:03 14:19:03 Visit Maral Garsia 350.1.13.10 ity of [place] [phone] [facility] 353 [facility] 2020-12-19 2020-12-19 Outpatient R SAYRA [facility] [id number] Univers 14:15:00 14:15:00 MARAL aranda of [facility] 2020-12-19 2020-12-19 Orders Doctor REYES 1.2.840.114 [id number] Univers 00:00:00 00:00:00 Only Unassigned, TOYA 350.1.13.10 ity of [place] [facility] 4.2.7.2.686 [place] as [phone] [facility] [address] 2020-12-18 2020-12-18 Refindy [facility] 1.2.840.114 [id number] Univers 00:00:00 00:00:00 Art MULTISPEC 350.1.13.10 ity of [place].2.[place].2.[place] C[place] [phone] [address] [facility] 2020-12-18 2020-12-18 Reggie [facility] 1.2.840.114 [id number] 41 Univers 00:00:00 00:00:00 Art MULTISPEC 350.1.13.10 ity of [place].2.[place] [phone] [facility] AND [address] DIABETES CLINIC 2020-12-08 2020-12-08 Ancillary Therapist, [facility] Pulmonary [facility] 1.2.840.114 [id number] Univers 10:23:30 11:23:30 Visit Art Crystal 350.1. 13.10 ity of [place].2.[place] [phone] [facility] 296 [facility] 2020-12-08 2020-12-08 Catia Designer Lab, [facility] 1.2.840.1 14 [id number] Univers 08:46:42 09:01:42 Visit Satnam Brighter.com 350.1.13.10 ity of [place] 4.2.7.2.686 Adelso as Neno?Blea [phone] [facility] [address] [facility] Office [facility] 2020-12-08 2020-12-08 Outpatient R [facility] [id number] Univers 08:45:00 08:45:00 ity [facility] 2020-12-06 2020-12-06 Ancillary Therapist, [facility] Pulmonary [facility] 1.2.840.114 [id number] Univers 10:31:58 15:48:59 Visit Art [place] 350.1. 13.10 ity of [place] 4.[place] [phone] [address] 2020-12-06 2020-12-06 Outpatient R SATNAM [facility] [id number] Univers 14:30:00 14:59:05 [facility] 2020-12-06 2020-12-06 Office [facility] 1.2.840.114 [id number] Univers 14:17:11 14:59:05 Visit Whotever 350.1.13.10 it y of [facility] 4.2.7.2.686 [place] as NENO?BLEA [phone] [facility] 220 [facility] 2020-12-06 2020-12-06 Outpatient R SATNAM [facility] [id number] Univers 14:30:00 14:30:00 [facility] 2020-12-06 2020-12-06 Outpatient R BONILLA [facility] [id number] [facility] 10:00:00 10:00:00 ART pulido f [facility] 2020-12-01 2020-12-01 Ancillary Therapist, [facility] Pulmonary [facility] 1.2.840.114 [id number] [facility] 10:32:58 11:17:49 Visit Art Crystal 350.1. 13.10 ity of [place].2.[place].2.[place] [phone] Dc dical nal 296 [facility] 2020-12-01 2020-12-01 Refill [facility] 1.2.687.158 [id number] [facility] 00:00:00 00:00:00 Ramon Bowen PRIMARY 350.1.13.10 i ty of C[place].2.[place] [id number] Dc dical [address] 2020-11-29 2020-11-29 Ancillary Therapist, [facility] Pulmonary [facility] 1.2.840.114 [id number] [facility] 10:28:44 15:02:28 Visit Art Crystal 350.1. 13.10 ity of [place] 4.2.7.2.[place] [phone] Dc dicnc nal 296 [facility] 2020-11-22 2020-11-22 Ancillary Therapist, [facility] Pulmonary [facility] 1.2.840.114 [id number] [facility] 11:05:11 13:42:42 Visit Art Crystal 350.1. 13.10 ity of [place] 4.2.7.2.[place] [phone] Dc dical nal 296 [facility] 2020-11-20 2020-11-20 [facility] 1.2.840.114 [id number] Univers 00:00:00 00:00:00 Jaxon TREJO 350.1.13.10 i ty of [place].2.[place] [phone] [facility] [address] 2020-11-20 2020-11-20 [facility] 1.2.840.114 [id number] Univers 00:00:00 00:00:00 Jaxon NEIL 350.1.13.10 i ty of [facility] 4.2.7.2.[place] [id number] [facility] [address] 2020-11-19 2020-11-19 [facility] 1.2.840.114 [id number] Univers 00:00:00 00:00:00 Jaxon NEIL 350.1.13.10 i ty of [facility] 4.2.7.2.[place] [id number] [address] 2020-11-19 2020-11-19 [facility] 1.2.840.114 [id number] Univers 00:00:00 00:00:00 Shakeel PRIMARY 350.1.13.10 it y of C[place] 704.8937936 Dc dical [address] 2020-11-19 2020-11-19 [facility] 1.2.840.114 [id number] Univers 00:00:00 00:00:00 Jaxon SMITHY 350.1.13.10 i ty of [facility] 4.2.7.2.[place] [id number] [address] 2020-11-17 2020-11-17 Ancillary Therapist, Adc Pulmonary [facility] 1.2.840.114 [id number] Univers 10:21:38 11:21:38 Visit Art Crystal 350.1. 13.10 ity of [place].2.[place] [phone] Me dical nal 296 [facility] 2020-11-10 2020-11-10 Ancillary Therapist, [facility] Pulmonary [facility] 1.2.840.114 [id number] [facility] 10:19:13 13:22:42 Visit Art Crystal 350.1. 13.10 ity of [place] 4.[place].2.[place] [phone] Dc [address] 2020-11-08 2020-11-08 Office [facility] 1.2.840.114 [id number] Univers 08:58:37 11:43:57 Visit Liborio Rodriguez 350.1.13.10 i ty of [place] 4.[place].7.2.[place] [phone] [address] 2020-11-08 2020-11-08 Office [facility] 1.2.840.114 [id number] Univers 08:58:37 11:43:57 Visit Liborio Rodriguez 350.1.13.10 i ty of [place] 4.2.7.2.[place] [phone] [address] 2020-11-08 2020-11-08 Ancillary Therapist, Simi [place] [facility] 1.2.840.114 [id number] Univers 10:29:32 11:43:37 Visit Art Crystal 350.1. 13.10 ity of [place] 4.2.7.2.[place] [phone] [address] 2020-11-08 2020-11-08 Office [facility] 1.2.840.114 [id number] Univers 10:08:04 10:08:11 Visit Liborio Rodriguez 350.1.13.10 i ty of [place] 4.[place].7.2.[place] [phone] [address] 2020-11-08 2020-11-08 Office [facility] 1.2.840.114 [id number] Univers 10:08:04 10:08:11 Visit Liborio Rodriguez 350.1.13.10 i ty of [place] 4.2.7.2.[place] [phone] [address] 2020-11-08 2020-11-08 Outpatient R ISABEL [facility] [id number] Univers 09:00:00 09:00:00 LIBORIO aranda [facility] 2020-11-04 2020-11-04 Outpatient R ELIZABET, [facility] [id number] Univers 12:00:00 12:00:00 SAM aranda of [facility] 2020-11-04 2020-11-04 Catia Designer Alejandro, [facility] Lab Main [facility] 1.2.8 40.114 [id number] Univers 11:11:44 11:26:44 Visit Sam Bradley 350.1.13.10 ity of [place] 4.[place].2.[place] [phone] [facility] 353 [facility] 2020-11-04 2020-11-04 Catia Designer Alejandro, [facility] Lab Main [facility] 1.2.8 40.114 [id number] Univers 11:11:44 11:26:44 Visit Sam Bradley 350.1.13.10 ity of [place] 4.[place].7.2.[place] [phone] [facility] 353 [facility] 2020-11-04 2020-11-04 Ancillary Therapist, [facility] Pulmonary [facility] 1.2.840.114 [id number] Univers 09:52:53 10:52:53 Visit Art Crystal 350.1. 13.10 ity of [place] 4.[place].2.[place] [phone] [facility] 296 [facility] 2020-11-04 2020-11-04 Outpatient R BONILLA [facility] [id number] Univers 10:00:00 10:00:00 ART aranda o f [facility] 2020-11-04 2020-11-04 Orders Doctor REYES 1.2.840.114 [id number] Univers 00:00:00 00:00:00 Only Unassigned, TOYA 350.1.13.10 ity of [place] [facility] 4.2.7.2.686 [place] as [phone] [address] 2020-11-04 2020-11-04 Orders Doctor REYES 1.2.840.114 [id number] Univers 00:00:00 00:00:00 Only Unassigned, TOYA 350.1.13.10 ity of [place] [facility] 4.2.7.2.686 [place] as [phone] [facility] [address] 2020-11-03 2020-11-03 Letter Sophia UNIVERSIT 1.2.840.114 [id number] Univers 00:00:00 00:00:00 (Out) , [facility] 350.1.13.10 i ty of [facility] 4.2.7.2.[place] [phone] [facility] [address] 2020-11-01 2020-11-01 Ancillary Therapist, [facility] Pulmonary [facility] 1.2.840.114 [id number] Univers 10:07:19 11:07:19 Visit Art Crystal 350.1. 13.10 ity of [place] 4[place].2.[place] [phone] Dc dical nal 296 [facility] 2020-10-28 2020-10-28 Telephone Kenneth [facility] 1.2.073.920 [id number] Univers 00:00:00 00:00:00 Summer Rodriguez 350.1.13.10 i ty of [place] 4.[place].7.2.[place] [phone] Dc dical nal 296 [facility] 2020-10-25 2020-10-25 Ancillary Therapist, [facility] Pulmonary [facility] 1.2.840.114 [id number] Univers 10:08:08 13:18:39 Visit Art Crystal 350.1. 13.10 ity of [place] 4.[place].7.2.[place] [phone] Dc dical nal 296 [facility] 2020-10-21 2020-10-21 Catia Designer Alejandro, [facility] Lab Main [facility] 1.2.8 40.114 [id number] Univers 12:38:49 12:53:49 Visit Liborio Hall 350.1.13.10 ity of [place] 4.[place].7.2.[place] [phone] [facility] 353 [facility] 2020-10-21 2020-10-21 Office Isabel [facility] 1.2.840.114 [id number] [facility] 10:31:03 12:29:56 Visit Liborio Rodriguez 350.1.13.10 i ty of [place] 4.2.7.2.[place] [phone] [address] 2020-10-21 2020-10-21 Outpatient R ISABEL [facility] [id number] Univers 10:40:00 10:40:00 LIBORIO aranda [facility] 2020-10-21 2020-10-21 Refill [facility] 1.2.840.114 [id number] Univers 00:00:00 00:00:00 Shakeel PRIMARY 350.1.13.10 it y of C[place].2.[place] [phone] [address] 2020-10-21 2020-10-21 Refill IsabelUN[facility] 1.2.840.114 [id number] Univers 00:00:00 00:00:00 Liborio Rodriguez 350.1.13.10 i ty of [place] 4.[place].2.[place] [phone] [address] 2020-10-21 2020-10-21 Refill [facility] 1.2.840.114 [id number] Univers 00:00:00 00:00:00 Shakeel FAMILY 350.1.13.10 it y of MEDICINE 4.2.7.2.686 [place] as CLINIC - [phone] [address] 2020-10-21 2020-10-21 Refill [facility] 1.2.840.114 [id number] Univers 00:00:00 00:00:00 Shakeel PRIMARY 350.1.13.10 it y of C[place] 4[place]2.[place].2.[place] [phone] [address] 2020-10-21 2020-10-21 Refindy HallUN[facility]ERS[facility] 1.2.840.114 [id number] Univers 00:00:00 00:00:00 Liborio Rodriguez 350.1.13.10 i ty of [place] 4.2.7.2.[place] [phone] Dc dical nal 044 [facility] 2020-10-18 2020-10-19 Ancillary Therapist, Adc Pulmonary [facility] 1.2.840.114 [id number] Univers 13:00:21 07:46:33 Visit Art Crystal 350.1. 13.10 ity of [place] 4.[place].2.[place] [phone] [facility] 296 [facility] 2020-10-18 2020-10-18 Outpatient R BONILLA [facility] [id number] Univers 13:00:00 13:00:00 ART aranda o f [facility] 2020-10-18 2020-10-18 Orders Doctor REYES 1.2.840.114 [id number] Univers 00:00:00 00:00:00 Only Unassigned, TOYA 350.1.13.10 ity of [place] [facility] 4.2.7.2.686 [place] as 485.4184185 [facility] [address] 2020-10-17 2020-10-17 Pre Visit Tim [facility] 1.2.183.839 [id number] Univers 00:00:00 00:00:00 Outreach Shakeel Rodriguez 350.1.13.10 ity of [place] 4[place].2.[place] [phone] Dc dicnc nal 044 [facility] 2020-10-12 2020-10-12 Outpatient R DADA SANDHU [facility] [id number] Univers 15:00:00 15:00:00 ity of [facility] 2020-10-12 2020-10-12 Telephone [place], UNIVERSIT 1.2.840.114 [id number] Univers 00:00:00 00:00:00 Nephrology Y HEALTH 350.1.13.10 ity of [facility] 4.2.7.2.[place] [phone] [facility] [address] [place] 2020-10-10 2020-10-10 Catia Designer Alejandro, Simi Lab Main [facility] 1.2.8 40.114 [id number] Univers 10:13:27 10:28:27 Visit Shakeel [place] 350.1.13.10 ity of [place] 4.2.7.2.[place] [phone] [facility] [address] Building 2020-10-10 2020-10-10 Outpatient R TIM [facility] [id number] Univers 10:00:00 10:00:00 SHAKEEL aranda [facility] 2020-10-05 2020-10-05 Patient Doctor REYES 1.2.840.114 [id number] Univers 00:00:00 00:00:00 Secure Msg Unassigned, TOYA 350.1.13.10 ity of [place] [facility] 4.2.7.2.686 [place] as [phone] [facility] [address] 2020-10-05 2020-10-05 Telephone JuanCARLOSLEANDER 1.2.840.114 [id number] Univers 00:00:00 00:00:00 [facility] 350.1.13.10 ity [facility] 4.2.7.2.[place] [phone] [facility] [address] 2020-09-29 2020-09-29 Catia Designer Draw, Clc-Bls Lab [facility] 1.2.8 40.114 [id number] Univers 16:38:25 16:53:25 Visit Ivelisse Ho [facility] 350.1.13.10 ity of [place] [phone] [facility] [address] Office Building 2020-09-29 2020-09-29 Outpatient Ab HO [facility] [id number] Univers 15:00:00 15:00:00 IVELISSE aranda [facility] 2020-09-29 2020-09-29 Outpatient Ab HO [facility] [id number] Univers 15:00:00 15:00:00 IVELISSE aranda [facility] 2020-09-27 2020-09-27 Outpatient Ab HO [facility] [id number] Univers 11:00:00 11:00:00 IVELISSE aranda [facility] 2020-09-27 2020-09-27 Outpatient R GEORGIA [facility] [id number] Univers 11:00:00 11:00:00 IVELISSE aranda [facility] 2020-09-25 2020-09-25 Telephone [facility] 1.2.230.036 [id number] Univers 00:00:00 00:00:00 Shakeel RAMÍREZ 350.1.13.10 it y of MEDICINE 4.2.7.2.686 [place] CLINIC - [phone] [address] 2020-09-21 2020-09-21 Office [facility] 1.2.840.114 [id number] Univers 10:53:17 11:08:17 Visit Jaxon SMITHY 350.1.13.10 i ty of [facility] 4.2.7.2.[place] [phone] [address] 2020-09-21 2020-09-21 [facility] [id number] Univers 11:00:00 11:00:00 JAXON aranda [facility] 2020-09-02 2020-09-02 Refill [facility] 1.2.840.114 [id number] Univers 00:00:00 00:00:00 Jaxon TREJO 350.1.13.10 i ty of [facility] 4.2.7.2.[place] 893.1384847 [address] 2020-08-29 2020-08-29 Office NILDA Giles 1.2.956.268 [id number] Univers 09:06:54 10:22:12 Visit Fady Tinajero 350.1.13.10 ity of [place] 4.2.7.2.686 [place] BANK [phone] [facility]. [address] 2020-08-29 2020-08-29 Office Chan, UNIVERSIT 1.2.680.060 [id number] Univers 09:06:54 10:22:12 Visit ShebaDalecitlalyrudolph Rohan 350.1.13.10 ity of [place] 4.2.7.2.686 [place] BANK [phone] [facility]. [address] 2020-08-29 2020-08-29 Outpatient R CHAN, [facility] [id number] Univers 09:00:00 09:00:00 SHEBA-HSIANG ity [facility] 2020-08-29 2020-08-29 Reggie [facility]UN[facility] 1.2.840.114 [id number] Univers 00:00:00 00:00:00 Jaxon SMITHY 350.1.13.10 i ty of [facility] 4.2.7.2.[place] [id number] [facility] [address] 2020-08-24 2020-08-24 Catia Designer Alejandro, Adc Lab Main [facility] 1.2.8 40.114 [id number] Univers 11:42:16 11:57:16 Visit Shakeel Burton 350.1.13.10 ity [facility] 4.2.7.2.[place] [phone] Dc dicnc nal 353 [facility] 2020-08-24 2020-08-24 Outpatient [facility] [id number] Univers 11:45:00 11:45:00 SHAKEEL ity [facility] 2020-08-20 2020-08-20 Reggie EscotoUNIVERS[facility] 1.2.840.114 [id number] Univers 00:00:00 00:00:00 Lisandra PRIMARY 350.1.13.10 it y of [place] [phone] Dc dical [address] [place] 2020-08-17 2020-08-17 Reggie Car[facility]coUN[facility] 1.2.840.114 [id number] Univers 00:00:00 00:00:00 Jaxon TREJO 350.1.13.10 i ty of [facility] 4.2.7.2.[place] [phone] [facility] [address] 2020-08-15 2020-08-15 Reggie BurtonUN[facility]ERS[facility] 1.2.840.114 [id number] Univers 00:00:00 00:00:00 Shakeel PRIMARY 350.1.13.10 it y of [place].2.[place] [phone] Dc dical [address] 2020-08-15 2020-08-15 Refill Dainlo [facility] 1.2.840.114 [id number] Univers 00:00:00 00:00:00 Jaxon NEIL 350.1.13.10 i ty of [place] 4.2.7.2.686 [place] [phone] [facility] [address] 2020-08-08 2020-08-08 Refill [facility] 1.2.840.114 [id number] Univers 00:00:00 00:00:00 Shakeel FAMILY 350.1.13.10 it y of MEDICINE 4.2.7.2.686 [place] CLINIC - [phone] [address] 2020-08-06 2020-08-06 Orders Doctor REYES 1.2.840.114 [id number] Univers 00:00:00 00:00:00 Only Unassigned, TOYA 350.1.13.10 ity of [place] [facility] 4.2.7.2.686 [place] as 508.6664451 [facility] [address] 2020-08-05 2020-08-05 Outpatient R MIKEY [facility] [id number] Univers 09:30:00 09:30:00 LEXI aranda of [facility] 2020-08-04 2020-08-04 Office Bairon [facility] 1.2.840.114 [id number] Univers 11:20:54 11:52:00 Visit Ya Rodriguez 350.1.13.10 i ty of [place] [phone] Dc dical nal 085 [facility] 2020-08-04 2020-08-04 Outpatient R YA QUINTANA [facility] 10 [id number] Univers 11:30:00 11:30:00 YA QUINTANA i ty of [facility] 2020-08-02 2020-08-02 Refindy BurtonUN[facility] 1.2.840.114 [id number] Univers 00:00:00 00:00:00 Shakeel FAMILY 350.1.13.10 it y of MEDICINE 4.2.7.2.686 [place] CLINIC - [phone] [address] 2020-07-29 2020-07-29 Outpatient R [facility] [id number] Univers 12:30:00 12:30:00 JAXON aranda [facility] 2020-07-29 2020-07-29 Catia Designer Alejandro, Simi Lab Main [facility] 1.2.8 40.114 [id number] Univers 11:02:03 11:17:03 Visit Jaxon Carrasco 350.1.13.10 ity of [place]2.[place] [phone] Dc dical nal 353 [facility] 2020-07-29 2020-07-29 Telephone [facility] [id number] Univers 00:00:00 00:00:00 Jaxon NEIL 350.1.13.10 i ty of [facility] [place] [phone] [facility] [address] 2020-07-27 2020-07-27 [facility] [id number] Univers 11:00:00 11:00:00 JAXONRAVEN aranda [facility] 2020-07-27 2020-07-27 Office [facility] 1.2.840.114 [id number] Univers 10:30:35 10:45:35 Visit Jaxon TREJO 350.1.13.10 i ty of [facility] [place]2.[place] [phone] [facility] [address] 2020-07-22 2020-07-22 Orders Doctor PULLIAM 1.2.840.114 [id number] Univers 00:00:00 00:00:00 Only Unassigned, TOYA 350.1.13.10 ity of [facility] 4.2.7.2.686 [place] [phone] [facility] [address] 2020-07-12 2020-07-12 Orders Doctor REYES 1.2.840.114 [id number] Univers 00:00:00 00:00:00 Only Unassigned, TOYA 350.1.13.10 ity of [facility] 4.2.7.2.686 [place] [phone] [address] 2020-07-05 2020-07-05 Outpatient R MIKEY [facility] [id number] Univers 09:30:00 09:30:00 LEXI ity of [facility] 2020-07-01 2020-07-01 Orders Doctor REYES 1.2.840.114 [id number] Univers 00:00:00 00:00:00 Only Unassigned, TOYA 350.1.13.10 ity of [facility] 4.2.7.2.686 [place] as [phone] [address] 2020-06-29 2020-06-29 [facility] 1.2.840.114 [id number] Univers 00:00:00 00:00:00 Bartolo PRIMARY 350.1.13.10 it y of C[place] [phone] Dc dical [address] [place] 2020-06-18 2020-06-18 Patient Tim [facility] 1.2.840.114 [id number] Univers 00:00:00 00:00:00 Secure Msg Shakeel FAMILY 350.1.13.10 ity of MEDICINE 4.2.7.2.686 [place] CLINIC - [phone] [address] 2020-06-17 2020-06-17 Orders Doctor REYES 1.2.840.114 [id number] Univers 00:00:00 00:00:00 Only Unassigned, TOYA 350.1.13.10 ity of [place] [facility] 4.2.7.2.686 [place] [phone] [facility] [address] [place] 2020-06-15 2020-06-15 Catia Designer [facility] UNIVERSIT 1.2.840.114 [id number] Univers 10:32:30 10:41:36 Visit Sandra Kuhn TRENA 350.1.13.10 ity of CLINICS [place] [phone] [facility] [address] 2020-06-15 2020-06-15 Office NILDA Kuhn 1.2.547.552 [id number] Univers 09:26:13 09:56:13 Visit [facility] 350.1.13.10 ity of CLINICS [place] [phone] [facility] [address] 2020-06-15 2020-06-15 Outpatient R MAL, [facility] [id number] Univers 09:30:00 09:30:00 [facility] 2020-06-15 2020-06-15 Outpatient R MAL [facility] [id number] Univers 09:30:00 09:30:00 [facility] 2020-06-14 2020-06-14 Outpatient R MIKEY, [facility] [id number] Univers 09:00:00 09:00:00 LEXI [facility] 2020-06-14 2020-06-14 [facility] 1.2.840.114 [id number] Univers 00:00:00 00:00:00 Shakeel [facility] 350.1.13.10 it y of MEDICINE 4.2.7.2.686 [place] CLINIC - [phone] [address] 2020-06-08 2020-06-08 Outpatient R DANILO [facility] [id number] Univers 14:15:00 14:15:00 JAXON [facility] 2020-06-08 2020-06-08 Ancillary Lucía Vegas [facility] 1.2.840. 114 [id number] Univers 13:12:02 13:57:02 Visit Tamiko Aceves 350.1.13.1 0 ity of [facility] [place]2.[place] 788.0771340 [facility] [address] 2020-06-08 2020-06-08 Office [facility] 1.2.840.114 [id number] Univers 13:12:26 13:27:26 Visit Jaxon TREJO 350.1.13.10 i ty of [facility] [place].2.[place] [phone] [facility] [address] 2020-06-08 2020-06-08 Orders Doctor REYES 1.2.840.114 [id number] Univers 00:00:00 00:00:00 Only Unassigned, TOYA 350.1.13.10 ity of [place] [facility] 4.2.7.2.686 [place] [phone] [facility] [address] [place] 2020-05-25 2020-05-25 Office PrinceNILDA hugo 1.2.270.755 [id number] Univers 13:57:31 15:41:39 Visit [facility] 350.1.13.10 i ty of [facility] [place].2.[place] [phone] [facility] [address] [place] 2020-05-25 2020-05-25 Outpatient R PHILIP [facility] [id number] Univers 14:00:00 14:00:00 MARLEN ity of [facility] 2020-05-25 2020-05-25 Patient Doctor REYES 1.2.840.114 [id number] Univers 00:00:00 00:00:00 Secure Msg Unassigned, TOYA 350.1.13.10 ity of [place] [facility] 4.2.7.2.686 [place] [phone] [facility] [address] [place] 2020-05-24 2020-05-24 Outpatient R BETTE [facility] [id number] Univers 11:45:00 11:45:00 JAYNE aranda of [facility] 2020-05-24 2020-05-24 Catia Designer Alejandro, Simi Lab Main [facility] 1.2.8 40.114 [id number] Univers 10:11:45 10:26:45 Visit Jayne Amos 350.1.13.10 ity of [place] [phone] Dc dic[address] 2020-05-24 2020-05-24 Orders Doctor REYES Keen.2.840.114 [id number] Univers 00:00:00 00:00:00 Only Unassigned, TOYA 350.1.13.10 ity of [place] [facility] 4.2.7.2.686 [place] [phone] [facility] [address] [place] 2020-05-232020-05-23 Office Chan [facility] 1.2.295.645 [id number] Univers 09:33:55 10:59:33 Visit Fady Tinajero 350.1.13.10 ity of NATIONAL 4.2.7.2.686 [place] BANK [phone] [facility]. [address] [place] 2020-05-23 2020-05-23 [facility] [id number] Univers 09:45:00 09:45:00 SHEBA-DANIELG ity of [facility] 2020-05-19 2020-05-19 Telephone [facility] 1.2.840.114 [id number] Univers 00:00:00 00:00:00 Jaxon Tinajero 350.1.13.10 it y of MEDICINE [facility] 4.2.7.2.686 [place] BANK [phone] [facility] [address] [place] 2020-05-18 2020-05-18 Office Lydia [facility] 1.2.840.114 [id number] Univers 08:32:46 09:18:28 Visit Trish Tinajero 350.1.13.10 it y of NATIONAL 4.2.7.2.686 [place] BANK [phone] [facility]. [address] [place] 2020-05-18 2020-05-18 Outpatient R LYDIA [facility] [id number] Univers 08:45:00 08:45:00 TRISH ity of [facility] 2020-05-13 2020-05-13 [facility] 1.2.840.114 [id number] Univers 12:40:28 23:59:00 Encounter Jaxon Rodriguez 350.1.13.10 ity of [place] [phone] [facility] [address] [place] 2020-05-13 2020-05-13 Outpatient R [facility] [id number] Univers 00:00:00 00:00:00 JAXON ity of [facility] 2020-05-11 2020-05-11 [facility] 1.2.840.114 [id number] Univers 00:00:00 00:00:00 Marlen Y HEALTH 350.1.13.10 i ty of [facility] [place].2.7.2.[place] [phone] [facility] [address] 2020-04-28 2020-04-28 Outpatient R FARZAD [facility] [id number] Univers 14:50:00 14:50:00 OMAR ity of [facility] 2020-04-28 2020-04-28 Office Danilo, [facility] 1.2.840.114 [id number] Univers 09:55:56 10:25:56 Visit Jaxon TREJO 350.1.13.10 i ty of [facility] 4.[place].7.2.[place] [phone] [facility] [address] 2020-04-27 2020-04-27 Catia Designer Alejandro, [facility] Lab Main [facility] 1.2.8 40.114 [id number] Univers 12:56:14 13:11:14 Visit Kirk Cervantes 350.1.13.10 ity of [place] [phone] Dc dical nal [address] [facility] 2020-04-27 2020-04-27 Outpatient R SAM [facility] [id number] Univers 13:00:00 13:00:00 KIRK ity of [facility] 2020-04-23 2020-04-23 Patient Doctor REYES 1.2.840.114 [id number] Univers 00:00:00 00:00:00 Secure Msg Unassigned, TOYA 350.1.13.10 ity of [place] [facility] 4.2.7.2.686 [place] [phone] [facility] [address] 2020-04-18 2020-04-18 Refill Doctor [facility] 1.2.840.114 [id number] Univers 00:00:00 00:00:00 Unassigned, PRIMARY 350.1.13.10 ity of [place] CARE [place] [phone] Dc dical [address] 2020-04-13 2020-04-13 Office NILDA Armas 1.2.271.177 [id number] Univers 13:49:29 15:16:19 Visit [facility] 350.1.13.10 i ty of [facility] 4.2.7.2.[place] [phone] [facility] [address] 2020-04-13 2020-04-13 Outpatient R PHILIP [facility] [id number] Univers 14:00:00 14:00:00 [facility] 2020-04-04 2020-04-04 Telephone PhilipCARLOSIT 1.2.840.114 [id number] Univers 00:00:00 00:00:00 [facility] 350.1.13.10 i ty of [facility] 4.2.7.2.[place] [phone] [address] 2020-04-03 2020-04-03 Outpatient Ab PANDA [facility] [id number] Univers 14:30:00 14:30:00 OMAR ity [facility] 2020-03-31 2020-03-31 Patient Doctor REYES 1.2.840.114 [id number] Univers 00:00:00 00:00:00 Secure Msg Unassigned, TOYA 350.1.13.10 ity of [place] [facility] 4.2.7.2.686 [place] [phone] [facility] [address] 2020-03-30 2020-03-30 Office Tim [facility] 1.2.840.114 [id number] Univers 15:03:41 15:33:41 Visit Shakeel FAMILY 350.1.13.10 it y of MEDICINE 4.2.7.2.686 [place] CLINIC - [phone] [address] 2020-03-30 2020-03-30 Outpatient Ab CRYSTAL [facility] [id number] Univers 13:00:00 13:00:00 MOHLYUBOV aranda o f [facility] 2020-03-30 2020-03-30 Orders Doctor REYES 1.2.840.114 [id number] Univers 00:00:00 00:00:00 Only Unassigned, TOYA 350.1.13.10 ity of [place] [facility] 4.2.7.2.686 [place] [phone] [facility] [address] 2020-03-24 2020-03-24 Catia Designer Pcp-Lab [facility] 1.2.840.114 [id number] Univers 12:50:48 13:05:48 Visit Shakeel Burton PRIMARY 350.1.13.10 ity of CARE [place] 196.6076391 Dc dical [address] 2020-03-24 2020-03-24 Telemedici Tim [facility] 1.2.840.114 [id number] Univers 10:44:27 11:14:27 ne Visit Shakeel FAMILY 350.1.13.10 i ty of MEDICINE 4.2.7.2.686 [place] CLINIC - [phone] [address] 2020-03-24 2020-03-24 Outpatient R TIM [facility] [id number] Univers 11:00:00 11:00:00 SHAKEEL ity of [facility] 2020-03-24 2020-03-24 Telephone Bonilla [facility] 1.2.870.811 [id number] Univers 00:00:00 00:00:00 [facility] MULTISPEC 350.1.13.10 ity of [place].2.[place] CENTER [phone] [facility] AND PATEL [address] [facility] 2020-03-23 2020-03-23 Telephone NILDA Armas 1.2.840.114 [id number] Univers 00:00:00 00:00:00 [facility] 350.1.13.10 i ty of [facility] CLINICS [place].2.[place] [phone] [facility] [address] 2020-03-23 2020-03-23 Telephone NILDA Armas 1.2.840.114 [id number] Univers 00:00:00 00:00:00 [facility] 350.1.13.10 i ty of [place] CLINICS 4.[place].2.[place] [phone] [facility] [address] 2020-03-22 2020-03-22 Office NILDA Crystal 1.2.622.281 [id number] Univers 10:55:03 11:25:[address] [facility] 350.1.13.10 ity [facility] [place].2.[place].2.[place] [phone] [facility] [address] 2020-03-22 2020-03-22 Outpatient R BONILLA [facility] [id number] Univers 11:00:00 11:00:00 [facility] ity o f [facility] 2020-03-17 2020-03-17 Office Tim [facility] 1.2.840.114 [id number] Univers 08:07:57 09:27:51 Visit Shakeel RAMÍREZ 350.1.13.10 it y of MEDICINE 4.2.7.2.686 [place] CLINIC - [phone] [address] 2020-03-17 2020-03-17 Outpatient R TIM [facility] [id number] Univers 08:00:00 08:00:00 [facility] 2020-03-15 2020-03-15 Telephone Tim [facility] 1.2.515.111 [id number] Univers 00:00:00 00:00:00 Shakeel RAMÍREZ 350.1.13.10 it y of MEDICINE 4.2.7.2.686 [place] CLINIC - [phone] [address] 2020-03-14 2020-03-14 Catia Designer Lab, [facility] Stew Joaquin. [facility] 1 .2.840.114 [id number] Univers 08:19:11 08:34:11 Visit TimShakeel banuelos 350.1.13.10 ity of MEDICINE 4.2.7.2.686 [place] CLINIC - [phone] [address] 2020-03-14 2020-03-14 Outpatient R [facility] [id number] Univers 08:15:00 08:15:00 ity [facility] 2020-03-11 2020-03-11 Telephone Tim [facility] 1.2.027.574 [id number] Univers 00:00:00 00:00:00 Shakeel FAMILY 350.1.13.10 it y of MEDICINE 4.2.7.2.686 [place] CLINIC - [phone] [address] 2020-03-10 2020-03-10 Outpatient R [facility] [id number] Univers 08:00:00 08:00:00 ity of [facility] 2020-03-02 2020-03-02 Transition Melanie Mejia 1.2.840.114 [id number] Univers 00:00:00 00:00:00 of Care Jared Vickers 350.1.13.10 ity of [place]2.7.2.[place] [id number] [facility] [address] [place] 2020-02-29 2020-03-01 [facility] Kenyatta Boss 1 .2.840.114 [id number] Univers 15:42:00 17:30:00 Encounter Brianna Sanchez 350.1.13.10 ity of [facility] 4.2.7.2.686 [place] [id number] [facility] [address] [place] 2020-02-29 2020-02-29 Catia Designer Lab, [facility] [address] [facility] 1 .2.840.114 [id number] Univers 07:56:25 08:11:25 Visit Marlen Armas Gigi Dove FAMILY 3 50.1.13.10 ity of MEDICINE 4.2.7.2.686 [place] CLINIC - [phone] [address] 2020-02-29 2020-02-29 Outpatient R PHILIP [facility] [id number] Univers 08:00:00 08:00:00 MARLEN ity [facility] 2020-02-24 2020-02-24 Refill Tim [facility] 1.2.840.114 [id number] Univers 00:00:00 00:00:00 Shakeel FAMILY 350.1.13.10 it y of MEDICINE 4.2.7.2.686 [place] CLINIC - [phone] [address] 2020-02-22 2020-02-22 Office NILDA Giles 1.2.555.149 [id number] Univers 09:19:01 11:19:16 Visit Fady Tinajero 350.1.13.10 ity of NATIONAL 4.2.7.2.686 [place] BANK [phone] [facility] BLDG. [address] [place] 2020-02-22 2020-02-22 Outpatient R CHAN [facility] [id number] Univers 09:30:00 09:30:00 FADY ity of [facility] 2020-02-22 2020-02-22 Patient Tim [facility] 1.2.840.114 [id number] Univers 00:00:00 00:00:00 Secure Msg Shakeel FAMILY 350.1.13.10 ity of MEDICINE 4.2.7.2.686 [place] CLINIC - [phone] [address] 2020-02-18 2020-02-18 Outpatient R CARMEN [facility] [id number] Univers 20:00:00 20:00:00 DAMEON aranda [facility] 2020-02-18 2020-02-18 Catia Designer Lab, Sleep JENNIFER 1.2.840.114 [id number] Univers 15:27:33 17:57:33 Visit Dameon Morales 350.1.13.10 ity of [place].2.[place] [phone] [facility] [address] [place] 2020-02-18 2020-02-18 Pre Visit Tim [facility] 1.2.693.803 [id number] Univers 00:00:00 00:00:00 Outreach Shakeel FAMILY 350.1.13.10 i ty of MEDICINE 4.2.7.2.686 [place] CLINIC - 492.1063145 [address] 2020-02-18 2020-02-18 Orders NILDA Crystal 1.2.430.619 [id number] Univers 00:00:00 00:00:00 Only Art Y HEALTH 350.1.13.10 ity of [place] CL[place]ICS [place] [phone] [facility] [address] [place] 2020-02-17 2020-02-17 Telephone NILDA Armas 1.2.840.114 [id number] Univers 00:00:00 00:00:00 Marlen Y HEALTH 350.1.13.10 i ty of [facility] 4.2.7.2.[place] [phone] [facility] [address] [place] 2020-02-17 2020-02-17 [facility] 1.2.840.114 [id number] Univers 00:00:00 00:00:00 Shakeel FAMILY 350.1.13.10 it y of MEDICINE 4.2.7.2.686 [place] CLINIC - 218.7468583 [address] 2020-02-17 2020-02-17 Telephone [facility] 1.2.764.264 [id number] Univers 00:00:00 00:00:00 Shakeel FAMILY 350.1.13.10 it y of MEDICINE 4.2.7.2.686 [place] CLINIC - 462.9142638 [address] 2020-02-15 2020-02-15 Laboratory Only, Pcp Test [facility] 1.2.840. 114 [id number] Univers 09:46:28 10:01:28 Only Jadaidan, Art Fathi PRIMARY 350.1.1 3.10 ity of CARE [place] 049.6145154 [facility] [address] [place] 2020-02-15 2020-02-15 Office NILDA Momin 1.2.840.114 [id number] Univers 09:04:06 09:36:35 Visit Trish Y 350.1.13.10 it y of NATIONAL 4.2.7.2.686 [place] BANK [phone] [facility] BLDG. [address] [place] 2020-02-15 2020-02-15 Outpatient R LYDIA [facility] [id number] Univers 09:15:00 09:15:00 TRISH ity of [facility] 2020-02-03 2020-02-03 Office Tim [facility] 1.2.840.114 [id number] Univers 08:01:06 08:59:40 Visit Shakeel FAMILY 350.1.13.10 it y of MEDICINE 4.2.7.2.686 [place] CLINIC - 133.0445158 [address] 2020-02-03 2020-02-03 Outpatient R TIM [facility] [id number] Univers 08:00:00 08:00:00 SHAKEEL ity of [facility] 2020-02-01 2020-02-01 Case VICENTE CalderonCJ 1.2.840.114 [id number] Univers 00:00:00 00:00:00 Management [facility] 350.1.13.10 it[place] 364.3867386 [address] 2020-02-01 2020-02-01 [facility] 1.2.840.114 [id number] Univers 00:00:00 00:00:00 Shakeel FAMILY 350.1.13.10 it y of MEDICINE 4.2.7.2.686 [place] CLINIC - 028.8340144 [address] 2020-01-27 2020-01-27 Patient Doctor [facility] 1.2.840.114 [id number] Univers 00:00:00 00:00:00 Secure Msg Unassigned, FAMILY 350.1.13.10 ity of [place] MEDICINE 4.2.7.2.686 [place] CLINIC - 873.7199790 [address] 2020-01-26 2020-01-26 Patient Doctor [facility] 1.2.840.114 [id number] Univers 00:00:00 00:00:00 Secure Msg Unassigned, FAMILY 350.1.13.10 ity of [place] MEDICINE 4.2.7.2.686 [place] CLINIC - 232.3227870 [address] 2020-01-26 2020-01-26 Telephone Tim [facility] 1.2.228.474 [id number] Univers 00:00:00 00:00:00 Shakeel FAMILY 350.1.13.10 it y of MEDICINE 4.2.7.2.686 [place] CLINIC - 049.0601785 [address] 2020-01-25 2020-01-25 [facility] CARLOS Calderon 1.2.840.114 [id number] Univers 09:56:36 23:59:00 Encounter Aubrie Tinajero HEALTH 350.1.13.10 ity of CL[place]ICS [place].2.[place] [phone] [address] 2020-01-25 2020-01-25 Outpatient R NIK [facility] [id number] Univers 00:00:00 00:00:00 AUBRIE ity [facility] 2020-01-25 2020-01-25 [facility] 1.2.840.114 [id number] Univers 00:00:00 00:00:00 Shakeel RAMÍREZ 350.1.13.10 it y of MEDICINE 4.2.7.2.686 [place] CLINIC - 701.8625256 [address] 2020-01-22 2020-01-22 Office Tim [facility] 1.2.840.114 [id number] Univers 13:26:28 14:55:22 Visit Shakeel RAMÍREZ 350.1.13.10 it y of MEDICINE 4.2.7.2.686 [place] CLINIC - 721.2237215 [address] 2020-01-22 2020-01-22 Outpatient R TIM [facility] [id number] Univers 13:30:00 13:30:00 SHAKEEL [facility] 2020-01-22 2020-01-22 Orders Doctor PULLIAM 1.2.840.114 [id number] Univers 00:00:00 00:00:00 Only Unassigned, TOYA 350.1.13.10 ity of [place] [facility] 4.2.7.2.686 [place] 414.0440664 [address] 2020-01-15 2020-01-15 Refill Doctor [facility] 1.2.840.114 [id number] Univers 00:00:00 00:00:00 Unassigned, PRIMARY 350.1.13.10 ity of [place] CARE [place].2.[place] 504.7680654 [address] 2020-01-03 2020-01-03 Refill Doctor NILDA 1.2.436.536 [id number] Univers 00:00:00 00:00:00 Unassigned, Y HEALTH 350.1.13.10 ity of [place] CLINICS 4.2.7.2.[place] 829.8418576 [address] 2020-01-01 2020-01-01 Case NILDA Crystal 1.2.948.360 [id number] Univers 00:00:00 00:00:00 Management Art Y HEALTH 350.1.13.10 ity of [place] CLINICS 4[place]2.7.2.[place] 450.4667418 [address] 2019-12-31 2019-12-31 Patient Doctor REYES 1.2.840.114 [id number] Univers 00:00:00 00:00:00 Secure Msg Unassigned, TOYA 350.1.13.10 ity of [place] [facility] 4.2.7.2.686 [place] 455.3263559 [address] 2019-12-30 2019-12-30 Outpatient R [facility] [id number] Univers 20:00:00 20:00:00 ity of [facility] 2019-12-30 2019-12-30 Catia Designer Lab, Sleep JENNIFER 1.2.840.114 [id number] Univers 12:48:43 15:18:43 Visit Dameon Morales 350.1.13.10 ity of [place].2.[place] 762.8196426 [address] 2019-12-29 2019-12-29 Patient Doctor [facility] 1.2.840.114 [id number] Univers 00:00:00 00:00:00 Secure Msg Unassigned, FAMILY 350.1.13.10 ity of [place] MEDICINE 4.2.7.2.686 [place] CLINIC - [phone] [address] 2019-12-29 2019-12-29 Refindy Burton [facility] 1.2.840.114 [id number] Univers 00:00:00 00:00:00 Shakeel FAMILY 350.1.13.10 it y of MEDICINE 4.2.7.2.686 [place] CLINIC - 434.4440041 [address] 2019-12-28 2019-12-28 Office NILDA Giles 1.2.516.374 [id number] [id number] Univers 09:08:55 10:39:29 Visit Fady Y 350.1.13.10 ity of NATIONAL 4.2.7.2.686 [place] BANK [phone] [facility] BLDG. [address] 2019-12-28 2019-12-28 Outpatient R CHAN [facility] [id number] Univers 09:15:00 09:15:00 FADY ity of [facility] 2019-12-28 2019-12-28 Orders Doctor [facility] 1.2.840.114 [id number] Univers 00:00:00 00:00:00 Only Unassigned, TOYA 350.1.13.10 ity of [place] [facility] 4.2.7.2.686 [place] [id number] [facility] [address] [place] 2019-12-27 2019-12-27 Refill Doctor [facility] 1.2.840.114 [id number] Univers 00:00:00 00:00:00 Unassigned, FAMILY 350.1.13.10 ity of [place] MEDICINE 4.2.7.2.686 [place] CLINIC - 317.6267625 [facility] 311 [facility] 2019-12-27 2019-12-27 Refill Doctor [facility] 1.2.840.114 [id number] Univers 00:00:00 00:00:00 Unassigned, PRIMARY 350.1.13.10 ity of [place] CARE [place].2.[place] 350.6525881 Dc dical [address] 2019-12-26 2019-12-26 Outpatient R [facility] [id number] Univers 14:45:00 14:45:00 ity of [facility] 2019-12-25 2019-12-25 Laboratory Only, Pcp Test [facility] 1.2.840. 114 [id number] Univers 10:09:47 10:24:47 Only Art Crystal PRIMARY 350.1.1 3.10 [place] [phone] Me dical [address] [place] 2019-12-25 2019-12-25 [facility] [id number] Univers 10:15:00 10:15:00 MOHAMMED ity o f [facility] 2019-12-22 2019-12-22 Office Tim [facility] 1.2.840.114 [id number] Univers 08:06:23 09:56:50 Visit Shakeel FAMILY 350.1.13.10 it y of MEDICINE 4.2.7.2.686 [place] as CLINIC - [id number] [address] 2019-12-22 2019-12-22 [facility] [id number] Univers 08:00:00 08:00:00 SHAKEEL ity of [facility] 2019-12-14 2019-12-14 [facility] 1.2.840.114 [id number] Univers 08:56:57 23:59:00 Encounter Benny Tinajero HEALTH 350.1.13.10 [place] [id number] [address] 2019-12-14 2019-12-14 Outpatient R [facility] [id number] Univers 00:00:00 00:00:00 BENNY ity of [facility] 2019-12-08 2019-12-08 Refill Doctor [facility] 1.2.840.114 [id number] Univers 00:00:00 00:00:00 Unassigned, PRIMARY 350.1.13.10 ity of [place] [id number] [address] 2019-12-03 2019-12-03 Refill Doctor [facility] 1.2.840.114 [id number] Univers 00:00:00 00:00:00 Unassigned, PRIMARY 350.1.13.10 ity [place] [id number] [address] 2019-11-30 2019-11-30 Refill Tyrell [facility] 1.2.840.114 [id number] Univers 00:00:00 00:00:00 Tremaine PRIMARY 350.1.13.10 it y [place] [id number] Dc dical [address] 2019-11-27 2019-11-27 Outpatient R BARRY HINTON [facility] [id number] Univers 14:00:00 14:00:00 ity of [facility] 2019-11-27 2019-11-27 Telemedici Chacha Reddy [facility] 1.2.840.114 [id number] Univers 09:00:16 09:20:16 ne Visit Mahendra Hintoned S PRIMARY 350.1.13.10 ity of [place]i Lu R CARE 4.2.7.2.[address] [facility] [id number] Dc dical [address] [place] 2019-11-24 2019-11-25 Office Bong Mays [facility] 1.2.840.114 [id number] Univers 14:52:14 09:11:55 [facility]. 13.10 [place] [id number] [facility] [address] [place] 2019-11-24 2019-11-24 Outpatient R BONILLA [facility] [id number] Univers 15:00:00 15:00:00 TRIHEALTHELIDIA tabory o f [facility] 2019-11-21 2019-11-21 Refill Doctor [facility] 1.2.840.114 [id number] Univers 00:00:00 00:00:00 Unassigned, FAMILY 350.1.13.10 ity of [place] MEDICINE 4.2.7.2.686 [place] CL[place]IC - [phone] [address] 2019-11-13 2019-11-14 Office Lisandra Escoto [facility] 1.2.840.114 [id number] Univers 10:58:52 07:52:19 Visit LishaMahendraed S PRIMARY 350.1.13.10 [place] [phone] Dc dical [address] [place] 2019-11-13 2019-11-13 Hospital Bonilla [facility] 1.2.840.114 [id number] Univers 15:12:04 23:59:00 Encounter Art Y HEALTH 350.1.13.10 ity of [place] CL[place]ICS [place] [id number] [facility] [address] [place] 2019-11-13 2019-11-13 Outpatient R BONILLA [facility] [id number] Univers 14:30:00 14:30:00 [facility] it[facility] o f [facility] 2019-11-11 2019-11-11 Office CARLOS MominIT 1.2.840.114 [id number] Univers 09:25:20 10:02:09 Visit Trish Tinajero 350.1.13.10 it y of NATIONAL 4.2.7.2.686 [place] BANK [phone] [facility]. [address] [place] 2019-11-11 2019-11-11 Outpatient R LYDIA [facility] [id number] Univers 09:30:00 09:30:00 TRISH ity of [facility] 2019-11-10 2019-11-10 Office Fady Giles UNIVERS[facility] 1.2.840. 114 [id number] Univers 09:04:47 10:29:42 Visit Josh Renteria 350.1.13.10 ity of NATIONAL 4.2.7.2.686 [place] BANK [phone] [facility]. [address] [place] 2019-11-10 2019-11-10 Outpatient R KELTON [facility] [id number] Univers 09:15:00 09:15:00 JOSH ity of [facility] 2019-11-10 2019-11-10 Laboratory Only, Pcp Test [facility] 1.2.840. 114 [id number] Univers 08:39:56 08:54:56 Only Art Crystal [facility] PRIMARY 350.1.1 3.10 it[place] C[place] [phone] [address] 2019-11-10 2019-11-10 Transition Melanie Mejia 1.2.840.114 [id number] Univers 00:00:00 00:00:00 of Care Jared Vickers 350.1.13.10 ity of [place] [phone] [facility] [address] 2019-11-04 2019-11-07 Hospital Brett Luciano 1.2.840. 114 [id number] Univers 17:11:00 17:55:00 Encounter Dona Badillo [employer] [facility] 350.1.13.10 ity of [facility] 4.2.7.2.686 [place] [phone] [place] [address] [place] 2019-11-02 2019-11-02 [facility] 1.2.840.114 [id number] Univers 00:00:00 00:00:00 Bartolo FAMILY 350.1.13.10 it y of MEDICINE 4.2.7.2.686 [place] CL[place] - [phone] [address] 2019-11-02 2019-11-02 [facility] 1.2.840.114 [id number] Univers 00:00:00 00:00:00 Christian santiago [facility] 350.1.13.10 [facility] 4.2.7.2.686 [place] PAVILLION [id number] [address] 2019-10-31 2019-10-31 Outpatient R UNKNOWN, [facility] [id number] Univers 13:45:00 13:45:00 ATTENDING ity of [facility] 2019-10-28 2019-10-28 Telephone NILDA Crystal 1.2.840.114 [id number] Univers 00:00:00 00:00:00 Art Y HEALTH 350.1.13.10 ity of [place] CL[place]ICS [place] [id number] [address] 2019-10-27 2019-10-27 Outpatient R BONILLA [facility] [id number] Univers 15:00:00 15:00:00 [facility] ity o f [facility] 2019-10-27 2019-10-27 Telemedici Bnoilla UNIVERS[facility] 1.2.840.114 [id number] Univers 09:04:00 10:55:09 ne Visit Art Y HEALTH 350.1.13.10 ity of [place] CL[place]ICS [place] [id number] [facility] [address] [place] 2019-10-21 2019-10-21 Office NILDA Emanuel 1.2.753.777 [id number] Univers 11:27:40 12:15:39 Visit [facility] Y HEALTH 350.1.13.10 ity of CLINICS 4[place] [id number] [facility] [address] [place] 2019-10-21 2019-10-21 Outpatient R ADELFO [facility] [id number] Univers 11:30:00 11:30:00 SANTHISRI ity of [facility] 2019-10-16 2019-10-16 Ancillary Malena Medina [facility] 1 .2.840.114 [id number] Univers 10:21:55 11:01:55 Visit Angela Levy [facility] 350.1.13.10 ity of CARE 4.[place].2.[place] [id number] [facility] [address] [place] 2019-10-12 2019-10-12 Telephone CARLOS Crystal 1.2.840.114 [id number] Univers 00:00:00 00:00:00 Art Y HEALTH 350.1.13.10 ity of [place] CL[place]ICS 4.2.[place].2.[place] [id number] [facility] [address] [place] 2019-10-12 2019-10-12 Orders Doctor PULLIAM 1.2.840.114 [id number] Univers 00:00:00 00:00:00 Only Unassigned, TOYA 350.1.13.10 ity of [place] HOSPITAL 4.2.7.2.686 [place] [id number] [facility] [address] [place] 2019-10-09 2019-10-09 Telephone CARLOS Crystal 1.2.840.114 [id number] Univers 00:00:00 00:00:00 Art Y HEALTH 350.1.13.10 it[place]ICS [place] [id number] [address] 2019-10-08 2019-10-08 Outpatient R [facility] [id number] Univers 10:20:00 10:20:00 ity of [facility] 2019-09-25 2019-09-25 Ancillary Malena Medina [facility] 1 .2.840.114 [id number] Univers 08:30:04 09:10:04 Visit Angela Levy PRIMARY 350.1.13.10 ity of CARE 4[place] [id number] Dc dical [address] [place] 2019-09-25 2019-09-25 Outpatient R [facility] [id number] Univers 08:40:00 08:40:00 ity of [facility] 2019-09-24 2019-09-24 Refill Negrita [facility] 1.2.818.148 [id number] Univers 00:00:00 00:00:00 [place] FAMILY 350.1.13.10 it y of MEDICINE 4.2.7.2.686 [place] CL[place]IC - [phone] [address] 2019-09-23 2019-09-23 Orders Doctor REYES 1.2.840.114 [id number] Univers 00:00:00 00:00:00 Only Unassigned, TOYA 350.1.13.10 ity of [place] [facility] 4.2.7.2.686 [place] [id number] [address] 2019-09-22 2019-09-22 Office NILDA Crystal 1.2.296.547 [id number] Univers 13:53:29 14:55:31 Visit [facility] HEALTH 350.1.13.10 it[place] CL[place]ICS [place] [id number] [address] 2019-09-22 2019-09-22 Outpatient R BONILLA [facility] [id number] Univers 14:00:00 14:00:00 [facility] ity o f [facility] 2019-09-22 2019-09-22 Refill NILDA Crystal 1.2.395.921 [id number] Univers 00:00:00 00:00:00 [facility] Y HEALTH 350.1.13.10 it[place] CL[place]ICS [place] [id number] [address] 2019-09-11 2019-09-11 Office [facility] 1.2.506.862 [id number] Univers 14:00:48 14:30:48 Visit James FAMILY 350.1.13.10 it y of MEDICINE 4.2.7.2.686 [place] CL[place]IC - [id number] [address] 2019-09-11 2019-09-11 [facility] [id number] Univers 14:00:00 14:00:00 JAMES ity [facility] 2019-09-11 2019-09-11 Ancillary Malena Medina [facility] 1 .2.840.114 [id number] Univers 11:19:31 13:14:39 Visit Angela Levy PRIMARY 350.1.13.10 ity of CARE [place] [id number] Dc dical [address] [place] 2019-09-07 2019-09-07 Telemedici [facility] 1.2.840.114 [id number] Univers 09:40:00 10:00:00 ne Visit Maye PRIMARY 350.1.13.10 i ty of CARE 4[place]2.[place] 469.3154650 Dc dical [address] [place] 2019-09-07 2019-09-07 Out[facility] [id number] Univers 09:40:00 09:40:00 [facility] 2019-09-01 2019-09-01 Patient [facility] 1.2.193.592 [id number] Univers 00:00:00 00:00:00 Secure Msg James PRIMARY 350.1.13.10 ity [place] [id number] Dc dical [address] [place] 2019-08-27 2019-08-27 Ancillary Malena Medina [facility] 1 .2.840.114 [id number] Univers 10:19:34 10:59:34 Visit Angela Levy PRIMARY 350.1.13.10 ity of C[place] 147.2182065 Me dical [address] [place] 2019-08-13 2019-08-24 Ancillary Malena Medina [facility] 1 .2.840.114 [id number] Univers 10:19:36 11:06:11 Visit Flower Angela Robertson PRIMARY 350.1.13.10 ity of CARE [place] [phone] Dc dical [address] [place] 2019-08-19 2019-08-19 Outpatient R CARMEN [facility] [id number] Univers 20:00:00 20:00:00 DAMEON ity [facility] 2019-08-19 2019-08-19 Catia Designer Lab, Sleep JENNIFER 1.2.840.114 [id number] Univers 15:36:33 18:06:33 Visit Dameon Morales 350.1.13.10 ity of [place] [phone] Medi christa [address] [place] 2019-08-19 2019-08-19 Orders Barry Hinton [facility] 1.2.840.114 [id number] Univers 00:00:00 00:00:00 Only S HEALTH 350.1.13.10 it y of [place] [phone] Med ical HOANG 044 [facility] 2019-08-17 2019-08-17 Laboratory Only, Pcp Test [facility] 1.2.840. 114 [id number] Univers 10:01:55 10:16:55 Only Barry Hinton PRIMARY 350.1.13.10 ity of CARE [place] [id number] Dc dical [address] [place] 2019-08-17 2019-08-17 Outpatient R BARRY HINTON [facility] [id number] Univers 10:00:00 10:00:00 ity [facility] 2019-07-31 2019-08-14 Office Christian Murillo [facility] 1.2.840.114 [id number] Univers 16:20:55 09:50:47 Visit Lisha, Barry S PRIMARY 350.1.13.10 ity of [place]2.[place] [phone] Dc dical [address] [place] 2019-08-13 2019-08-13 Outpatient [facility] [id number] Univers 15:51:52 23:59:00 JAMES ity of [facility] 2019-08-13 2019-08-13 [facility] 1.2.840.114 [id number] Univers 15:51:00 23:59:00 Encounter [place] PRIMARY 350.1.13.10 ity of C[place]2.[place] [id number] Dc dical [address] [place] 2019-08-13 2019-08-13 Office [facility] 1.2.248.977 [id number] Univers 15:47:02 16:36:56 Visit [place] PRIMARY 350.1.13.10 it y of CARE [place] [id number] Dc dical [address] [place] 2019-08-13 2019-08-13 Outpatient [facility] [id number] Univers 10:20:00 10:20:00 ANGELA ity of [facility] 2019-08-13 2019-08-13 [facility] 1.2.840.114 [id number] Univers 00:00:00 00:00:00 sa, Christian PRIMARY 350.1.13.10 ity of [place] CARE 4.2.7.2.686 [place] PAVILLION [id number] Dc dical [address] [place] 2019-08-12 2019-08-12 Outpatient R [facility] [id number] Univers 11:00:00 11:00:00 ity of [facility] 2019-08-10 2019-08-10 Office CARLOS MominIT 1.2.840.114 [id number] Univers 08:55:09 09:32:07 Visit Trish Y 350.1.13.10 it y of NATIONAL 4.2.7.2.686 [place] BANK [phone] [facility] BLDG. [address] [place] 2019-08-10 2019-08-10 Outpatient R MOMIN, [facility] [id number] Univers 09:00:00 09:00:00 TRISH ity [facility] 2019-08-03 2019-08-03 Outpatient R [facility] [id number] Univers 11:20:00 11:20:00 ity [facility] 2019-07-31 2019-07-31 Outpatient R BARRY HINTON [facility] [id number] Univers 16:20:00 16:20:00 ity [facility] 2019-07-30 2019-07-30 Ancillary Malena Medina [facility] 1 .2.840.114 [id number] Univers 13:28:03 14:08:03 Visit Angela Levy PRIMARY 350.1.13.10 ity [place] [phone] [address] 2019-07-28 2019-07-28 Telephone [facility] 1.2.266.800 [id number] Univers 00:00:00 00:00:00 Tremaine FAMILY 350.1.13.10 it y of [place] MEDICINE 4.2.7.2.686 [place] CLINIC - 384.8624374 [address] 2019-07-28 2019-07-28 Telephone [facility] 1.2.069.130 [id number] Univers 00:00:00 00:00:00 Tremaine FAMILY 350.1.13.10 it y of [place] MEDICINE 4.2.7.2.686 [place] CLINIC - [phone] [address] 2019-07-22 2019-07-22 Orders Doctor REYES 1.2.840.114 [id number] Univers 00:00:00 00:00:00 Only Unassigned, TOYA 350.1.13.10 ity of [place] [facility] 4.2.7.2.686 [place] 505.9316857 [address] 2019-07-17 2019-07-17 Ancillary Malena Medina [facility] 1 .2.840.114 [id number] Univers 09:58:57 10:49:36 Visit Levy, Angela A PRIMARY 350.1.13.10 ity of C[place] [id number] Me dical [address] 2019-07-17 2019-07-17 Outpatient R FLOWER, [facility] [id number] Univers 10:00:00 10:00:00 ANGELA ity of [facility] 2019-07-09 2019-07-09 Office Puthenparam UNIVERSIT 1.2.840.114 [id number] Univers 08:31:06 10:38:28 Visit sudeepRocael 350.1.13.10 ity of MEDICINE [facility] 4.2.7.2.686 [place] BANK [id number] [facility] BLDG. [address] [place] 2019-07-09 2019-07-09 Outpatient R PUTVEROPARAM [facility] [id number] Univers 08:45:00 08:45:00 SUDEEPROCAEL ity of [facility] 2019-07-09 2019-07-09 Orders Doctor REYES 1.2.840.114 [id number] Univers 00:00:00 00:00:00 Only Unassigned, TOYA 350.1.13.10 ity of [place] [facility] 4.2.7.2.686 [place] [id number] [facility] [address] 2019-07-08 2019-07-08 Outpatient R [facility] [id number] Univers 16:00:00 16:00:00 ity of [facility] 2019-07-08 2019-07-08 Telemedici Oscar Gibbs UNIVERSIT 1.2.840.1 14 [id number] Univers 08:25:50 08:55:50 ne Visit Kirk Cervantes HEALTH 350.1.13.10 ity of CL[place]2.[place] 152.0170689 [facility] [address] 2019-07-03 2019-07-03 Catia Designer Pcp-Lab [facility] 1.2.840.114 [id number] Univers 10:16:04 10:26:04 Visit Diana Patrick PRIMARY 350.1.13.10 ity of C[place] [id number] Me dical [address] 2019-07-03 2019-07-03 Outpatient R DARNELL [facility] [id number] Univers 10:20:00 10:20:00 DIANA ity of [facility] 2019-07-03 2019-07-03 [facility]phone [facility] 1.2.840.114 [id number] Univers 00:00:00 00:00:00 sa, Christian FAMILY 350.1.13.10 ity of [place] - [phone] [address] 2019-06-29 2019-06-29 [facility]ill [facility] 1.2.840.114 [id number] Univers 00:00:00 00:00:00 sa, Christian PRIMARY 350.1.13.10 ity of [place] CARE 4.2.7.2.686 [place] PAVILLION [id number] [address] 2019-06-08 2019-06-08 Telephone Oscar Gibbs UNIVERSIT 1..840.11 4 [id number] Univers 00:00:00 00:00:00 Y HEALTH 350.1.13.10 i ty of CL[place] [id number] [address] 2019-06-08 2019-06-08 Refill [facility] 1.2.840.114 [id number] Univers 00:00:00 00:00:00 Tremaine FAMILY 350.1.13.10 it y of [place] MEDICINE 4.2.7.2.686 [place] CLINIC - [id number] [address] 2019-06-01 2019-06-01 Outpatient Ab BANSAL [facility] [id number] Univers 08:45:00 08:45:00 ROCAEL SHEETS ity of [facility] 2019-05-26 2019-05-26 Telephone [facility] 1.2.721.665 [id number] Univers 00:00:00 00:00:00 Tremaine FAMILY 350.1.13.10 it y of [place] MEDICINE 4.2.7.2.686 [place] CLINIC - [phone] [address] 2019-05-22 2019-05-22 Ancillary Malena Medina [facility] 1 .2.840.114 [id number] Univers 09:55:49 10:55:49 Visit Angela Levy PRIMARY 350.1.13.10 ity [place] [id number] Dc dical [address] [place] 2019-05-22 2019-05-22 [facility] [id number] Univers 10:20:00 10:20:00 ANGELA ity [facility] 2019-05-20 2019-05-21 Telemedici Oscar Gibbs UNIVERSIT 1.2.840.1 14 [id number] Univers 08:04:11 10:04:03 ne Visit Kirk Cervantes [facility] 350.1.13.10 ity of CL[place] [id number] [address] 2019-05-20 2019-05-20 Outpatient R SAM [facility] [id number] Univers 15:00:00 15:00:00 KIRK ity [facility] 2019-05-19 2019-05-20 Telemedici Tremaine Santillan [facility] 1. 2.840.114 [id number] Univers 08:48:34 14:43:38 ne Visit BadilloDona Marcelo FAMILY 350.1.13.10 ity of MEDICINE 4.2.7.2.686 [place] CLINIC - 486.0310362 [address] 2019-05-20 2019-05-20 Telephone Tyrell [facility] 1.2.880.154 [id number] Univers 00:00:00 00:00:00 Tremaine FAMILY 350.1.13.10 it y of [facility] MEDICINE 4.2.7.2.686 [place] CLINIC - [id number] [address] 2019-05-19 2019-05-19 Outpatient R [facility] [id number] Univers 10:10:00 10:10:00 ity [facility] 2019-05-15 2019-05-15 Refill Doctor [facility] 1.2.840.114 [id number] Univers 00:00:00 00:00:00 Unassigned, FAMILY 350.1.13.10 ity of [place] MEDICINE 4.2.7.2.686 [place] CLINIC - 402.9639539 [address] 2019-04-20 2019-05-09 Office Lisandra Escoto [facility] 1.2.840.114 [id number] Univers 08:49:15 16:56:34 Visit Jose Armando Goldstein FAMILY 350.1.13.10 ity of MEDICINE 4.2.7.2.686 [place] CLINIC - [id number] [address] 2019-05-07 2019-05-07 Orders Doctor REYES 1.2.840.114 [id number] Univers 00:00:00 00:00:00 Only Unassigned, TOYA 350.1.13.10 ity of [place] [facility] 4.2.7.2.686 [place] 322.1015158 [address] 2019-05-07 2019-05-07 Refill Nathalie [facility] 1.2.840.114 [id number] Univers 00:00:00 00:00:00 Dona Robertson FAMILY 350.1.13.10 i ty of MEDICINE 4.2.7.2.686 [place] CLINIC - [phone] [address] 2019-05-05 2019-05-05 Outpatient Ab VACA [facility] [id number] Univers 09:00:00 09:00:00 LEXI ity of [facility] 2019-05-05 2019-05-05 Refill Jevon [facility] 1.2.840.114 [id number] Univers 00:00:00 00:00:00 Lisandra RAMÍREZ 350.1.13.10 it y of MEDICINE 4.2.7.2.686 [place] CLINIC - [phone] [address] 2019-05-03 2019-05-03 Refill Doctor [facility] 1.2.840.114 [id number] Univers 00:00:00 00:00:00 Unassigned, FAMILY 350.1.13.10 ity of [place] MEDICINE 4.2.7.2.686 [place] CLINIC - 413.6313171 [address] 2019-04-28 2019-04-28 Outpatient R MIKEY [facility] [id number] Univers 09:00:00 09:00:00 LEXI itrohan [facility] 2019-04-28 2019-04-28 Orders Doctor REYES 1.2.840.114 [id number] Univers 00:00:00 00:00:00 Only Unassigned, TOYA 350.1.13.10 ity of [place] [facility] 4.2.7.2.686 [place] [id number] [address] 2019-04-27 2019-04-27 Orders Doctor REYES 1.2.840.114 [id number] Univers 00:00:00 00:00:00 Only Unassigned, TOYA 350.1.13.10 ity of [place] [facility] 4.2.7.2.686 [place] [id number] [address] 2019-04-22 2019-04-23 Office Lisandra Escoto [facility] 1.2.840.114 [id number] Univers 08:46:25 13:26:04 Visit Ramon Alcazar 350.1.13.10 ity of MEDICINE 4.2.7.2.686 [place] CLINIC - [phone] [address] 2019-04-22 2019-04-22 Outpatient Ab ALCAZAR [facility] [id number] Univers 08:50:00 14:36:41 RAMON rohan [facility] 2019-04-22 2019-04-22 Telephone [facility] 1.2.840.114 [id number] Univers 00:00:00 00:00:00 Pati RAMÍREZ 350.1.13.10 i ty of MEDICINE 4.2.7.2.686 [place] CLINIC - [phone] [address] 2019-04-20 2019-04-20 Outpatient R TRISTON [facility] [id number] Univers 10:04:58 23:59:00 JOSE ARMANDO aranda [facility] 2019-04-20 2019-04-20 [facility] 1.2.840.114 [id number] Univers 10:04:00 23:59:00 Encounter Jose Armando Vanessa 350.1.13.10 ity of Pediatric 4.2.7.2.[address] [facility] [phone] [facility] [address] [place] 2019-04-20 2019-04-20 Outpatient Ab GOLDSTEIN [facility] [id number] Univers 08:50:00 10:43:29 JOSE ARMANDO ity of [facility] 2019-04-20 2019-04-20 [facility] 1.2.840.114 [id number] Univers 00:00:00 00:00:00 sa, Christian FAMILY 350.1.13.10 ity of [place] MEDICINE 4.2.7.2.686 Te [facility] - [phone] [address] 2019-04-15 2019-04-15 Telephone [facility] 1.2.644.036 [id number] Univers 00:00:00 00:00:00 Tremaine FAMILY 350.1.13.10 it [facility] 4.2.7.2.686 [place] CLINIC - [phone] [address] 2019-04-14 2019-04-14 Orders Doctor REYES 1.2.840.114 [id number] Univers 00:00:00 00:00:00 Only Unassigned, TOYA 350.1.13.10 ity of [place] [facility] 4.2.7.2.686 [place] 439.6815279 [facility] [address] [place] 2019-04-08 2019-04-08 Office Momin, UN[facility]ERSIT 1.2.840.114 [id number] Univers 08:43:26 14:05:14 Visit Trish Y 350.1.13.10 it y of NATIONAL 4.2.7.2.686 [place] BANK [phone] [facility] BLDG. [address] 2019-04-06 2019-04-06 Refill [facility] 1.2.840.114 [id number] Univers 00:00:00 00:00:00 Christian santiago FAMILY 350.1.13.10 ity of [place] MEDICINE 4.2.7.2.686 Te [facility] - 446.1428482 [address] 2019-04-04 2019-04-04 Telephone [facility] [id number] Univers 00:00:00 00:00:00 Tremaine FAMILY 350.1.13.10 it y of [place] MEDICINE 4.2.7.2.686 [place] CLINIC - [phone] [address] 2019-04-02 2019-04-02 Office Joseph [facility] 1.2.840.114 [id number] Univers 08:49:20 09:04:20 Visit Rocael sheets Y 350.1.13.10 ity of NATIONAL 4.2.7.2.686 [place] BANK [phone] [facility] BLDG. [address] 2019-04-02 2019-04-02 Orders Doctor REYES 1.2.840.114 [id number] Univers 00:00:00 00:00:00 Only Unassigned, TOYA 350.1.13.10 ity of [facility] 4.2.7.2.686 [place] as [phone] [address] 2019-03-30 2019-03-30 Refill Doctor [facility] 1.2.017.451 [id number] Univers 00:00:00 00:00:00 Unassigned, Y HEALTH 350.1.13.10 ity of [facility] [facility] 4[place]2.7.2.[place] [phone] [facility] [address] [place] 2019-03-30 2019-03-30 Orders Doctor REYES 1.2.840.114 [id number] Univers 00:00:00 00:00:00 Only Unassigned, TOYA 350.1.13.10 ity of [facility] 4.2.7.2.686 [place] as [phone] [address] 2019-03-25 2019-03-25 Telephone Kaya Junior [facility] 1.2.840.11 [id number] Univers 00:00:00 00:00:00 Y HEALTH 350.1.13.10 i ty of CLINICS 4[place].2.[place] [phone] [address] 2019-03-24 2019-03-24 Office CARLOS [facility] 1.2.309.312 [id number] Univers 15:52:23 16:39:22 Visit Art Y HEALTH 350.1.13.10 ity of [place] [facility] 4[place]2.7.2.[place] [phone] [facility] [address] [place] 2019-03-24 2019-03-24 Orders Doctor REYES 1.2.840.114 [id number] Univers 00:00:00 00:00:00 Only Unassigned, TOYA 350.1.13.10 ity of [facility] 4.2.7.2.686 [place] [phone] [facility] [address] [place] 2019-03-21 2019-03-21 Telephone Tyrell [facility] 1.2.574.411 [id number] Univers 00:00:00 00:00:00 Tremaine FAMILY 350.1.13.10 it y of [place] MEDICINE 4.2.7.2.686 [place] CLINIC - [phone] [address] 2019-03-20 2019-03-20 Office Tremaine Santillan [facility] 1.2.8 40.114 [id number] Univers 12:52:23 14:38:10 Visit Perla, Pati Jean-Paul FAMILY 350.1.13.10 ity of MEDICINE 4.2.7.2.686 [place] - [phone] [address] 2019-03-20 2019-03-20 Orders Doctor REYES 1.2.840.114 [id number] Univers 00:00:00 00:00:00 Only Unassigned, TOYA 350.1.13.10 ity of [facility] 4.2.7.2.686 [place] as [phone] [facility] [address] [place] 2019-03-18 2019-03-18 Office Oscar Gibbs [facility] 1.2.840.114 [id number] Univers 14:24:32 16:34:40 Visit Jayne Amos Y HEALTH 350.1.13.10 ity of CLINICS [phone] [facility] [address] 2019-03-18 2019-03-18 Orders Doctor REYES 1.2.840.114 [id number] Univers 00:00:00 00:00:00 Only Unassigned, TOYA 350.1.13.10 ity of [facility] [facility] 4.2.7.2.686 [place] [phone] [address] 2019-03-17 2019-03-17 Orders Doctor REYES 1.2.840.114 [id number] Univers 00:00:00 00:00:00 Only Unassigned, TOYA 350.1.13.10 ity of [facility] [facility] 4.2.7.2.686 [place] [phone] [address] 2019-03-16 2019-03-16 Telephone [facility] 1.2.840.114 [id number] Univers 00:00:00 00:00:00 saChristian FAMILY 350.1.13.10 ity of [place] [facility] [place] [facility] - [phone] [address] 2019-03-16 2019-03-16 Telephone [facility] 1.2.840.114 [id number] Univers 00:00:00 00:00:00 sa, Christian FAMILY 350.1.13.10 ity [place] [facility] - [phone] [address] 2019-03-13 2019-03-13 Orders Doctor REYES 1.2.840.114 [id number] Univers 00:00:00 00:00:00 Only Unassigned, TOYA 350.1.13.10 ity of [facility] [facility] 4.2.7.2.686 [place] [phone] [address] 2019-03-11 2019-03-11 Abstract Kaya Junior UNIVERSIT 1.2.840.114 [id number] Univers 00:00:00 00:00:00 Y HEALTH 350.1.13.10 i ty [phone] [address] 2019-02-16 2019-02-16 Emergency X RAMONA ALANNIKA ERT [id number] Univers 18:49:33 22:11:00 MINA aranda [facility] 2019-02-12 2019-02-14 Outpatient X NATHALIE [facility] [id number] Univers 12:45:58 17:35:00 DONA ity of [facility] 2019-02-11 2019-02-11 Office Oscar [facility] 1.2.840.114 [id number] Univers 14:49:27 16:34:54 Visit Jayne Amos [facility] 350.1.13.10 ity of [place] [phone] [facility] [address] 2019-02-10 2019-02-10 Orders Doctor REYES 1.2.840.114 [id number] Univers 00:00:00 00:00:00 Only Unassigned, TOYA 350.1.13.10 ity of [facility] [facility] 4.2.7.2.686 [place] [phone] [address] 2019-01-16 2019-01-17 [id number] [id number] Memoria 20:14:12 03:33:00 n ab Rolando 07 [facility] 2019-01-16 2019-01-[facility] [id number] Memoria 20:14:12 03:33:00 n ab Marshall 07 [facility] 2019-01-16 2019-01-16 Outpatient ANTHONY Gonzales MHSE [id number] 14:14:12 21:33:00 Jake Quintanilla [facility] 2019-01-16 2019-01-16 Outpatient E MHSE MED [id number] 17:45:00 17:45:00 [facility] 2018-11-18 2018-11-18 Reggie Pena [facility] 1.2.840.114 [id number] Univers 00:00:00 00:00:00 Jordi FAMILY 350.1.13.10 it y of [facility] MEDICINE 4.2.7.2.686 [place] CL[place]IC - [phone] [address] 2018-11-13 2018-11-13 Catia Designer Lab, [facility] Stew Joaquin. [facility] 1 .2.840.114 [id number] Univers 07:50:27 08:05:27 Visit Kirk Cervantes FAMILY 350.1.13.10 ity of MEDICINE 4.2.7.2.686 [place] - [phone] [address] 2018-11-12 2018-11-12 Catia Designer [facility] UNIVERSIT 1.2.840.114 [id number] Univers 14:51:21 14:59:40 Visit Kirk Cervantes HEALTH 350.1.13.10 ity of [place] [phone] [facility] [address] 2018-11-12 2018-11-12 Office Kaya Junior UNIVERSIT 1.2.840.114 [id number] Univers 13:13:23 14:45:33 Visit Kirk Cervantes HEALTH 350.1.13.10 ity of CL[place] [phone] [facility] [address] 2018-11-11 2018-11-11 Office Lian, [facility] 1.2.840.114 [id number] Univers 14:23:35 14:53:35 Visit [facility] HEALTH 350.1.13.10 i ty of CL[place] [phone] [facility] [address] 2018-11-06 2018-11-06 Catia Designer Lab, [facility] [address] [facility] 1 .2.840.114 [id number] Univers 12:58:42 13:13:42 Visit Jayne Amos FAMILY 350.1.13.10 ity of MEDICINE 4.2.7.2.686 [place] - [phone] [address] 2018-11-05 2018-11-05 Reggie Munguia UNIVERSIT 1.2.028.157 [id number] Univers 00:00:00 00:00:00 Pulmonary Y HEALTH 350.1.13.10 ity of [place] [phone] [facility] [address] 2018-11-05 2018-11-05 Reggie Kaye [facility] 1.2.251.079 [id number] Univers 00:00:00 00:00:00 Conner P Y HEALTH 350.1.13.10 i ty of [place] [phone] [facility] [address] 2018-10-30 2018-10-30 Telephone CARLOS Amos 1.2.840.114 [id number] Univers 00:00:00 00:00:00 EdwinHooptap 350.1.13.10 ity of [place] [phone] [facility] [address] 2018-10-28 2018-10-28 [facility] 1.2.840.114 [id number] Univers 00:00:00 00:00:00 Dona A FAMILY 350.1.13.10 i ty of MEDICINE 4.2.7.2.686 [place] CL[place]IC - [phone] [address] 2018-10-22 2018-10-22 Letter CARLOS Amos 1.2.222.399 [id number] Univers 00:00:00 00:00:00 (Out) Jayne Tinajero HEALTH 350.1.13.10 ity of CL[phone] [address] [address] 2018-10-22 2018-10-22 Patient CARLOS Amos 1.2.224.268 [id number] Univers 00:00:00 00:00:00 Secure Msg Jayne Greasebook 350.1.13.10 ity of CLINICS [place] [phone] [place] [address] [address] 2016-02-03 2016-02-03 Outpatient MHIE MHIE [id number] Memoria 15:15:00 15:15:00 10 richar Marshall 2016-02-03 2016-02-03 Outpatient MHIE MHIE [id number] Memoria 15:15:00 15:15:00 10 richar Marshall 2015-10-11 2015-10-11 Outpatient MHIE MHIE [id number] Memoria 15:15:00 15:15:00 09 richar Marshall 2015-10-11 2015-10-11 Outpatient MHIE MHIE [id number] Memoria 15:15:00 15:15:00 09 richar Marshall 2015-10-07 2015-10-07 Outpatient MHIE MHIE [id number] Memoria 15:30:00 15:30:00 06 richar Marshall 2015-10-07 2015-10-07 Outpatient MHIE MHIE [id number] Memoria 15:30:00 15:30:00 06 richar Marshall 2015-09-28 2015-09-29 [facility] 4003 [id number] Memoria 12:48:00 04:59:00 r Rolando 09 [facility] 2015-09-28 2015-09-29 Outpatient [facility] 4003 [id number] Memoria 12:48:00 04:59:00 r Rolando 09 [facility] 2015-09-28 2015-09-28 Outpatient Josh, MHSE MHSE [id number] 07:48:00 23:59:00 Pati 09 [facility] 2015-09-21 2015-09-21 Bedded [facility]Flavo [facility] [id number] Memoria 13:30:00 16:32:00 Outpatient r [place] [address] [place] [address] 2015-09-21 2015-09-21 Bedded [facility]Flavo [facility] [id number] Memoria 13:30:00 16:32:00 [facility] [address] [place] [address] 2015-09-21 2015-09-21 [facility] [id number] 08:30:00 11:32:00 yJose Angel 06 [place] 2015-09-13 2015-09-13 Outpatient MHIE MHIE [id number] Memoria 09:00:00 09:00:00 08 richar Marshall 2015-09-13 2015-09-13 Outpatient MHIE MHIE [id number] Memoria 09:00:00 09:00:00 08 richar Marshall 2015-08-09 2015-08-09 Outpatient MHIE MHIE [id number] Memoria 10:15:00 10:15:00 07 richar Marshall 2015-08-09 2015-08-09 Outpatient MHIE MHIE [id number] Memoria 10:15:00 10:15:00 07 richar HannahRiverton 2015-07-20 2015-07-21 [facility] 4003 [id number] Memoria 12:02:00 04:59:00 r Rolando 03 [facility] 2015-07-20 2015-07-21 Outpatient [facility] 4003 [id number] Memoria 12:02:00 04:59:00 r Rolando 03 [facility] 2015-07-20 2015-07-20 Outpatient Avel, MHSE MHSE [id number] 07:02:00 23:59:00 Gideon Shukla [place] 2015-06-06 2015-06-07 [facility] 4003 [id number] Memoria 21:10:00 04:59:00 r Rolando 95 [facility] 2015-06-06 2015-06-07 Outpatient [facility] 4003 [id number] Memoria 21:10:00 04:59:00 r Rolando 95 [facility] 2015-06-06 2015-06-06 Outpatient Josh, MHSE MHSE [id number] 16:10:00 23:59:00 Pati 95 [place] 2015-06-03 2015-06-03 Outpatient MHIE MHIE [id number] Memoria 15:15:00 15:15:00 05 richar Marshall 2015-06-03 2015-06-03 Outpatient MHIE MHIE [id number] Memoria 15:15:00 15:15:00 05 richar Marshall 2015-02-15 2015-02-15 Outpatient MHIE MHIE [id number] Memoria 15:15:00 15:15:00 04 ricahr Marshall 2015-02-15 2015-02-15 Outpatient MHIE MHIE [id number] Memoria 15:15:00 15:15:00 04 richar Marshall 2015-01-20 2015-01-20 Outpatient MHIE MHIE [id number] Memoria 14:30:00 14:30:00 01 richar Marshall 2015-01-20 2015-01-20 Outpatient MHIE MHIE [id number] Memoria 14:30:00 14:30:00 01 richar Marshall 2014-12-07 2014-12-07 Outpatient MHIE MHIE [id number] Memoria 14:30:00 14:30:00 02 richar Marshall 2014-12-07 2014-12-07 Outpatient MHIE MHIE [id number] Memoria 14:30:00 14:30:00 02 richar Marshall 2014-10-26 2014-11-[address] [facility] [id number] Memoria 20:40:00 04:59:00 Patients r [facility] 02 [facility] 2014-10-26 2014-11-[address] [facility] [id number] Memoria 20:40:00 04:59:00 Patients r [facility] 02 [place] 2014-10-26 2014-11-24 Outpatient Josh, 2.16.840. 2.16.840.1. [id number] 15:40:00 23:59:00 Pati 1.674644. [id number] 02 [place]ly[place] 3.615.52 5.52 2014-11-23 2014-11-24 Outpt Diag nullFlavo [facility] [id number] Memoria 17:39:00 04:59:00 Services r Outpatient 00 l Imaging - Elliott Piña 2014-11-23 2014-11-24 Outpt Diag nullFlavo [facility] [id number] Memoria 17:39:00 04:59:00 Services r Outpatient 00 l Imaging - Elliott jarrell Comins 2014-11-23 2014-11-23 [facility] [id number] 12:39:00 23:59:00 Brennan 00 2014-11-05 2014-11-05 Outpatient MHIE MHIE [id number] Memoria 08:00:00 08:00:00 03 richar Rolando 2014-11-05 2014-11-05 Outpatient MHIE MHIE [id number] Memoria 08:00:00 08:00:00 03 richar Marshall 2014-09-23 2014-10-[address] [facility] [id number] Memoria 19:45:00 04:59:00 Patients r [facility] 01 [place] Rolando [facility] 2014-09-23 2014-10-[address] [facility] [id number] Memoria 19:45:00 04:59:00 Patients r [facility] 01 [place] Rolando [facility] 2014-09-23 2014-10-22 Outpatient Josh, 2.16.840. 2.16.840.1. [id number] 14:45:00 23:59:00 Pati 1.836943. [id number] 01 Alyx 3.615.52 5.52 2014-09-17 2014-09-17 Outpatient MHIE MHIE [id number] Memoria 09:30:00 09:30:00 00 richar Marshall 2014-09-17 2014-09-17 Outpatient [facility] [id number] Memoria 09:30:00 09:30:00 00 richar Marshall 2013-12-08 2013-12-09 Outpatient nullFlavo [facility] 4003 [id number] Memoria 17:41:00 04:59:00 r [place] 00 [facility] 2013-12-08 2013-12-09 Outpatient nullFlavo [facility] 4003 [id number] Memoria 17:41:00 04:59:00 r [place] 00 [facility] 2013-12-08 2013-12-08 Outpatient Josh, 2.16.840. 2.16.840.1. [id number] 12:41:00 23:59:00 Pati 1.150403. 858310.3.61 00 [place] 3.615.0.1 5.0.518 38 8451-10-01 2013-12-03 Outpatient nullFlavo [facility] 4003 [id number] Memoria 18:35:00 04:59:00 r Rolando 74 [facility] 2013-12-02 2013-12-03 Outpatient nullFlavo [facility] 4003 [id number] Memoria 18:35:00 04:59:00 r [place] 74 [facility] 2013-12-02 2013-12-02 Outpatient Josh, 2.16.840. 2.16.840.1. [id number] 13:35:00 23:59:00 Pati 1.495314. [id number] 74 [place] 3.615.0.1 5.0.406 37 6371-12-29 2012-03-01 Outpatient nullFlavo [id number] Memoria 21:00:00 23:59:00 r [facility] 03 richar HannahRolando 2012-03-01 2012-03-01 Outpatient nullFlavo [id number] Memoria 21:00:00 23:59:00 r [facility] 03 richar Marshall 2011-04-05 2011-04-05 Outpatient nullFlavo [id number] Memoria 17:52:00 23:59:00 r [facility] 02 richar Marshall 2011-04-05 2011-04-05 Outpatient nullFlavo [id number] Memoria 17:52:00 23:59:00 r [place] 02 l Rolando 2011-03-01 2011-03-01 Outpatient nullFlavo [id number] Memoria 15:52:00 15:52:00 r [facility] 63 l Rolando 2011-03-01 2011-03-01 Outpatient nullFlavo [id number] Memoria 15:52:00 15:52:00 r [facility] 63 l [place] Results Test Description Test Time Test Comments Results Result Comments Source POCT GLUCOSE (AUTOMATED) 2022-10-23 22:00:03 Test Item Value Reference Range Interpretation Comme nts POCT GLU (test code = 0829147106) 198 mg/dL 70-110 H Lab Interpretation (test code = 98573-6) Abnormal [facility] GLUCOSE (AUTOMATED)2022-10-23 17:23:30 Test Item Value Reference Range Interpretation Comments POCT GLU (test code = 8629091451) 243 mg/dL 70-110 H Lab Interpretation (test code = Abnormal 01804-2) [facility] GLUCOSE (AUTOMATED)2022-10-23 13:09:46 Test Item Value Reference Range Interpretation Comments POCT GLU (test code = 2261896127) 104 mg/dL 70-110 Lab Interpretation (test code = Normal 24999-6) [facility] GLUCOSE (AUTOMATED)2022-10-23 02:27:00 Test Item Value Reference Range Interpretation Comments POCT GLU (test code = 8965689454) 206 mg/dL 70-110 H Lab Interpretation (test code = Abnormal 83166-0) [facility] GLUCOSE (AUTOMATED)2022-10-22 21:47:10 Test Item Value Reference Range Interpretation Comments POCT GLU (test code = 5851057530) 207 mg/dL 70-110 H Lab Interpretation (test code = Abnormal 73958-0) [facility] GLUCOSE (AUTOMATED)2022-10-22 17:23:03 Test Item Value Reference Range Interpretation Comments POCT GLU (test code = 8738020971) 225 mg/dL 70-110 H Lab Interpretation (test code = Abnormal 76132-8) [facility] GLUCOSE (AUTOMATED)2022-10-22 13:58:00 Test Item Value Reference Range Interpretation Comments POCT GLU (test code = 0818078741) 146 mg/dL 70-110 H Lab Interpretation (test code = Abnormal 64872-7) [facility] GLUCOSE (AUTOMATED)2022-10-22 01:31:33 Test Item Value Reference Range Interpretation Comments POCT GLU (test code = 4347925918) 208 mg/dL 70-110 H Lab Interpretation (test code = Abnormal 60747-9) [facility] GLUCOSE (AUTOMATED)2022-10-21 22:13:38 Test Item Value Reference Range Interpretation Comments POCT GLU (test code = 4177104327) 109 mg/dL 70-110 Lab Interpretation (test code = Normal 41872-5) [facility] GLUCOSE (AUTOMATED)2022-10-21 17:58:28 Test Item Value Reference Range Interpretation Comments POCT GLU (test code = 5273892345) 170 mg/dL 70-110 H Lab Interpretation (test code = Abnormal 94618-4) [facility] GLUCOSE (AUTOMATED)2022-10-21 11:02:22 Test Item Value Reference Range Interpretation Comments POCT GLU (test code = 5542306067) 103 mg/dL 70-110 Lab Interpretation (test code = Normal 38928-7) [facility] GLUCOSE (AUTOMATED)2022-10-21 10:36:55 Test Item Value Reference Range Interpretation Comments POCT GLU (test code = 9964841727) 106 mg/dL 70-110 Lab Interpretation (test code = Normal 37766-4) [facility] GLUCOSE (AUTOMATED)2022-10-21 04:34:49 Test Item Value Reference Range Interpretation Comments POCT GLU (test code = 6367425329) 114 mg/dL 70-110 H Lab Interpretation (test code = Abnormal 71990-3) [facility] GLUCOSE (AUTOMATED)2022-10-20 22:15:58 Test Item Value Reference Range Interpretation Comments POCT GLU (test code = 7922005127) 160 mg/dL 70-110 H Lab Interpretation (test code = Abnormal 79433-9) [facility] [id number] 21:53:23 Test Item Value Reference Range Interpretation Comments LACTIC ACID (test code = 1.26 mmol/L 0.50-2.20 2564010281) Lab Interpretation (test code = Normal 93452-5) [facility] ABG + LACTIC [id number] 18:35:26 Test Item Value Reference Range Interpretation Comments PH (test code = 2) 7.34 7.35-7.45 L PCO2 (test code = 47 See_Comment H [Automate d 3864339094) message] The sy stem which generated this result transmitted reference range : 35 - 45 mmHg. The reference range was not used to interpret this result as normal/abnormal . PO2 (test code = 64 See_Comment L [Automated 4258542778) message] The sy stem which generated this result transmitted reference range : 80 - 100 mmHg. The reference range was not used to interpret this result as normal/abnormal . HCO3 (test code = 25 See_Comment [Automate d 0410550896) message] The sy stem which generated this result transmitted reference range : 22 - 26 mEq/L. The reference range was not used to interpret this result as normal/abnormal . BE (test code = -1.0 See_Comment [Automated 0928963340) message] The sy stem which generated this result transmitted reference range : -3.0 - 3.0 mEq/ L. The reference r carolynn was not used to interpret this result as normal/abnormal . LACTIC ACID (test code 2.46 mmol/L 0.50-2.20 H = 3699270966) Lab Interpretation Abnormal (test code = 88314-3) [facility] GLUCOSE (AUTOMATED)2022-10-20 17:00:47 Test Item Value Reference Range Interpretation Comments POCT GLU (test code = 9291630036) 102 mg/dL 70-110 Lab Interpretation (test code = Normal 26924-9) [facility] GLUCOSE (AUTOMATED)2022-10-20 11:11:09 Test Item Value Reference Range Interpretation Comments POCT GLU (test code = 8372334485) 105 mg/dL 70-110 Lab Interpretation (test code = Normal 51489-3) [facility] GLUCOSE (AUTOMATED)2022-10-20 04:56:18 Test Item Value Reference Range Interpretation Comments POCT GLU (test code = 8880177126) 143 mg/dL 70-110 H Lab Interpretation (test code = Abnormal 25693-4) [facility] GLUCOSE (AUTOMATED)2022-10-19 23:09:26 Test Item Value Reference Range Interpretation Comments POCT GLU (test code = 1038433094) 153 mg/dL 70-110 H Lab Interpretation (test code = Abnormal 08242-4) [facility] [id number] 21:55:38 Test Item Value Reference Range Interpretation Comments TROPONIN I (test code = 0.073 ng/mL <=0.034 H 9446368860) TOÑA (test code = TOÑA) Reference (Normal) Range (defined by the 99th percentile reference limit): <= 0.034 ng/mL Note: Cardiac troponin begins to rise 3-4 hours after the onset of ischemia. Repeat in 4-6 hours if the sample was drawn within 3-4 hours of the onset of the symptom and found normal. Diagnosis of myocardial injury is made with acute changes in cTn concentrations with at least one serial sample above the 99th percentile upper reference limit (URL), taken together with the patient's clinical presentation. Biotin has been reported to cause a negative bias, interpret results relative to patient's use of biotin. Lab Interpretation Abnormal (test code = 36954-6) [facility]2022-10-19 18:04:29 Test Item Value Reference Range Interpretation Comments POCT GLU (test code = 5141623537) 197 mg/dL 70-110 H Lab Interpretation (test code = Abnormal 96049-9) [facility] CenterProthrombin Time / [id number] 17:42:25 Test Item Value Reference Range Interpretation Comments PROTIME PATIENT (test 9.7 See_Comment L [Auto mated message] code = 5964-2) The system [employer] generated this result transmitted ref erence range: 10.1 - 1 2.6 Seconds. The reference range was not used to int erpret this result as normal/abnormal . INR (test code = 6301-6) 0.9 Nor mal INR <1.1; Warfarin Therap eutic range 2.0 to 3. 0 or 2.5 to 3.5, dep ending upon the indica tions. Lab Interpretation (test Abnormal code = 35884-3) [facility] Panel 20 + Lactic [id number] 16:22:44 Test Item Value Reference Range Interpretation Comments PH (test code = 2) 7.33 7.35-7.45 L PCO2 (test code = 51 See_Comment H [Automate d 4856156009) message] The sy stem which generated this result transmitted reference range : 35 - 45 mmHg. The reference range was not used to interpret this result as normal/abnormal . PO2 (test code = 123 See_Comment H [Automated 8302957052) message] The sy stem which generated this result transmitted reference range : 80 - 100 mmHg. The reference range was not used to interpret this result as normal/abnormal . HCO3 (test code = 27 See_Comment H [Automate d 2499229457) message] The sy stem which generated this result transmitted reference range : 22 - 26 mEq/L. The reference range was not used to interpret this result as normal/abnormal . BE (test code = 0.1 See_Comment [Automated 2231985190) message] The sy stem which generated this result transmitted reference range : -3.0 - 3.0 mEq/ L. The reference r carolynn was not used to interpret this result as normal/abnormal . THB (test code = 11.4 g/dL 13.5-18.0 L 6363377708) %O2HB (test code = 97.2 % 94.0-99.0 3463065595) %COHB ART (test code = 0.3 % 0.0-1.5 6017834739) %METHB ART (test code = 0.5 % 0.4-1.5 5815818763) VOL%O2 ART (test code = 15.8 % 15.0-23.0 8121378078) NA (test code = 141 mmol/L 135-145 9888110828) K+ (test code = 4.5 mmol/L 3.5-5.0 0851957475) AC CA IONZ (test code = 5.00 mg/dL 4.50-5.30 8440612075) GLUCOSE (test code = 192 mg/dL 70-110 H 9981000393) LACTIC ACID (test code 1.01 mmol/L 0.50-2.20 = 4186852805) Lab Interpretation Abnormal (test code = 54955-8) [facility] CenterAVINASH [id number] 16:05:04 Test Item Value Reference Range Interpretation Comments TROPONIN I (test code = 0.087 ng/mL <=0.034 H 9847914914) TOÑA (test code = TOÑA) Reference (Normal) Range (defined by the 99th percentile reference limit): <= 0.034 ng/mL Note: Cardiac troponin begins to rise 3-4 hours after the onset of ischemia. Repeat in 4-6 hours if the sample was drawn within 3-4 hours of the onset of the symptom and found normal. Diagnosis of myocardial injury is made with acute changes in cTn concentrations with at least one serial sample above the 99th percentile upper reference limit (URL), taken together with the patient's clinical presentation. Biotin has been reported to cause a negative bias, interpret results relative to patient's use of biotin. Lab Interpretation Abnormal (test code = 85971-1) [facility]IUM2023-08-18 15:55:20 Test Item Value Reference Range Interpretation Comments MAGNESIUM (test code = 3306331185) 2.9 mg/dL 1.7-2.4 H Lab Interpretation (test code = Abnormal 26985-8) [facility] CenterPHOSPHORUS2023-08-18 15:55:20 Test Item Value Reference Range Interpretation Comments PHOSPHORUS (test code = 3539892095) 3.4 mg/dL 2.5-5.0 Lab Interpretation (test code = Normal 93224-5) [facility] GLUCOSE (AUTOMATED)2022-10-19 14:33:39 Test Item Value Reference Range Interpretation Comments POCT GLU (test code = 1037662492) 196 mg/dL 70-110 H Lab Interpretation (test code = Abnormal 31185-4) [facility] GLUCOSE (AUTOMATED)2022-10-09 22:29:51 Test Item Value Reference Range Interpretation Comments POCT GLU (test code = 8199793424) 265 mg/dL 70-110 H Lab Interpretation (test code = Abnormal 33300-6) [facility] GLUCOSE (AUTOMATED)2022-10-09 21:51:44 Test Item Value Reference Range Interpretation Comments POCT GLU (test code = 6059059577) 241 mg/dL 70-110 H Lab Interpretation (test code = Abnormal 98433-0) [facility] GLUCOSE (AUTOMATED)2022-10-09 16:41:51 Test Item Value Reference Range Interpretation Comments POCT GLU (test code = 6681877008) 212 mg/dL 70-110 H Lab Interpretation (test code = Abnormal 54502-9) [facility] GLUCOSE (AUTOMATED)2022-10-09 13:19:19 Test Item Value Reference Range Interpretation Comments POCT GLU (test code = 7102459447) 153 mg/dL 70-110 H Lab Interpretation (test code = Abnormal 54961-1) [facility] GLUCOSE (AUTOMATED)2022-10-09 02:05:16 Test Item Value Reference Range Interpretation Comments POCT GLU (test code = 2627129236) 165 mg/dL 70-110 H Lab Interpretation (test code = Abnormal 73878-3) [facility] CenterGlycosylated Hemoglobin (A1C)2022-10-08 22:19:13 Test Item Value Reference Range Interpretation Comments HGB A1C (test code = 6.0 % 4.0-5.7 H 4548-4) TOÑA (test code = TOÑA) Reference RangesNormal: <5.7%Prediabetes: 5.7 - 6.4%Diabetes: > 6.5% Lab Interpretation (test Abnormal code = 94456-3) [facility] GLUCOSE (AUTOMATED)2022-10-08 21:55:20 Test Item Value Reference Range Interpretation Comments POCT GLU (test code = 9653059803) 95 mg/dL 70-110 Lab Interpretation (test code = Normal 53348-0) [facility] GLUCOSE (AUTOMATED)2022-10-08 20:05:51 Test Item Value Reference Range Interpretation Comments POCT GLU (test code = 0614735478) 126 mg/dL 70-110 H Lab Interpretation (test code = Abnormal 44703-8) [id number] 13:47:23 Test Item Value Reference Range Interpretation Comments NT-proBNP (test code = 1080 pg/mL <=125 H 07578-7) TOÑA (test code = TOÑA) Positive: Heart Failure Likely Lab Interpretation (test Abnormal code = 78613-5) [facility] 11:34:36 Test Item Value Reference Range Interpretation Comments MAGNESIUM (test code = 1511522878) 2.3 mg/dL 1.7-2.4 Lab Interpretation (test code = Normal 83069-4) [facility] METABOLIC PANEL (NA, K, CL, CO2, GLUCOSE, BUN, CREATININE, CA)2022-10-08 11:34:15 Test Item Value Reference Range Interpretation Comments NA (test code = 138 mmol/L 135-145 8540066249) K (test code = 4.1 mmol/L 3.5-5.0 4586858814) CL (test code = 96 mmol/L 98-108 L 2304209561) CO2 TOTAL (test code = 38 mmol/L 23-31 H 6538886236) AGAP (test code = 4 2-16 5447287568) BUN (test code = 54 mg/dL 7-23 H 2683179756) GLUCOSE (test code = 118 mg/dL 70-110 H 0033375202) CREATININE (test code = 2.96 mg/dL 0.60-1.25 H 3682679620) CALCIUM (test code = 8.9 mg/dL 8.6-10.6 9518517313) eGFR (test code = 21.1 mL/min/1.73m2 2761435206) TOÑA (test code = TOÑA) Association of Glomerular Filtration Rate (GFR) and Staging of Kidney Disease* + --+ --+ ------+| GFR (mL/min/1.73 m2) ?| With Kidney Damage ?| ?Without Kidney Damage+ --------+ --------+ +| ?>90 ?| ?Stage one ?| ? Normal ?+ ---+ ---+ -------+| ?60-89 ?| ?Stage two ?| ? Decreased GFR ? + --+ --+ ------+| ?30-59 ?| ?Stage three ?| ? Stage three ? + --+ --+ ------+| ?15-29 ?| ?Stage four ? | ? Stage four ?+ ---+ ---+ -------+| ?<15 (or dialysis) ? ?| ?Stage five ? | ? Stage five ?+ ---+ ---+ -------+ *Each stage assumes the associated GFR level has been in effect for at least three months. ?Stages 1 to 5, with or without kidney disease, indicate chronic kidney disease. Notes: Determination of stages one and two (with eGFR >59mL/min/1.73 m2) requires estimation of kidney damage for at least three months as defined by structural or functional abnormalities of the kidney, manifested by either:Pathological abnormalities or Markers of kidney damage (including abnormalities in the composition of the blood or urine or abnormalities in imaging tests). Lab Interpretation Abnormal (test code = 21858-5) [facility] WITH [id number] 11:32:39 Test Item Value Reference Range Interpretation Comments WBC (test code = 7.26 See_Comment [Automated 6690-2) message] The sy stem which generated this result transmitted reference range : 4.20 - 10.70 10*3/?L. The reference range was not used to interpret this result as normal/abnormal . RBC (test code = 3.39 See_Comment L [Automated 789-8) message] The sy stem which generated this result transmitted reference range : 4.26 - 5.52 10*6/?L. The reference range was not used to interpret this result as normal/abnormal . HGB (test code = 10.9 g/dL 12.2-16.4 L 718-7) HCT (test code = 34.9 % 38.4-49.3 L 4544-3) MCV (test code = 102.9 fL 81.7-95.6 H 787-2) MCH (test code = 32.2 pg 26.1-32.7 785-6) MCHC (test code = 31.2 g/dL 31.2-35.0 786-4) RDW-SD (test code = 55.5 fL 38.5-51.6 H 66862-2) RDW-CV (test code = 14.7 % 12.1-15.4 788-0) PLT (test code = 172 See_Comment [Automated 777-3) message] The sy stem which generated this result transmitted reference range : 150 - 328 10*3/ ?L. The reference r carolynn was not used to interpret this result as normal/abnormal . MPV (test code = 10.7 fL 9.8-13.0 38908-4) NRBC/100 WBC (test 0.0 See_Comment [Automat ed code = 8373687518) message] The system which generated this result transmitted reference range : 0.0 - 10.0 /100 WBCs. The refer ence range was not u sed to interpret th is result as normal/abnormal . NRBC x10^3 (test code See_Comment [Auto mated = 0528518894) message] The s ystem which generated this result transmitted reference range : 10*3/?L. The reference range was not used to interpret this result as normal/abnormal . GRAN MAT (NEUT) % 63.8 % (test code = 770-8) IMM GRAN % (test code 0.40 % = 8856070371) LYMPH % (test code = 25.1 % 736-9) MONO % (test code = 8.5 % 5905-5) EOS % (test code = 1.5 % 713-8) BASO % (test code = 0.7 % 706-2) GRAN MAT x10^3(ANC) 4.63 10*3/uL 1.99-6.95 (test code = 8196522271) IMM GRAN x10^3 (test 0.03 10*3/uL 0.00-0.06 code = 8490556259) LYMPH x10^3 (test code 1.82 10*3/uL 1.09-3.23 = 731-0) MONO x10^3 (test code 0.62 10*3/uL 0.36-1.02 = 742-7) EOS x10^3 (test code = 0.11 10*3/uL 0.06-0.53 711-2) BASO x10^3 (test code 0.05 10*3/uL 0.01-0.09 = 704-7) Lab Interpretation Abnormal (test code = 48132-2) [facility] (NA, K, CL, CO2, GLUCOSE, BUN, CREATININE, CA)2022-10-07 10:59:58 Test Item Value Reference Range Interpretation Comments NA (test code = 139 mmol/L 135-145 4163982154) K (test code = 4.2 mmol/L 3.5-5.0 7855923678) CL (test code = 97 mmol/L 98-108 L 9553020016) CO2 TOTAL (test code = 38 mmol/L 23-31 H 6433937288) AGAP (test code = 4 2-16 7623892226) BUN (test code = 52 mg/dL 7-23 H 2188711593) GLUCOSE (test code = 72 mg/dL 70-110 0464957336) CREATININE (test code = 2.60 mg/dL 0.60-1.25 H 8165598404) CALCIUM (test code = 9.0 mg/dL 8.6-10.6 9461099464) eGFR (test code = 24.5 mL/min/1.73m2 5071745076) TOÑA (test code = TOÑA) Association of Glomerular Filtration Rate (GFR) and Staging of Kidney Disease* + --+ --+ ------+| GFR (mL/min/1.73 m2) ?| With Kidney Damage ?| ?Without Kidney Damage+ --------+ --------+ +| ?>90 ?| ?Stage one ?| ? Normal ?+ ---+ ---+ -------+| ?60-89 ?| ?Stage two ?| ? Decreased GFR ? + --+ --+ ------+| ?30-59 ?| ?Stage three ?| ? Stage three ? + --+ --+ ------+| ?15-29 ?| ?Stage four ? | ? Stage four ?+ ---+ ---+ -------+| ?<15 (or dialysis) ? ?| ?Stage five ? | ? Stage five ?+ ---+ ---+ -------+ *Each stage assumes the associated GFR level has been in effect for at least three months. ?Stages 1 to 5, with or without kidney disease, indicate chronic kidney disease. Notes: Determination of stages one and two (with eGFR >59mL/min/1.73 m2) requires estimation of kidney damage for at least three months as defined by structural or functional abnormalities of the kidney, manifested by either:Pathological abnormalities or Markers of kidney damage (including abnormalities in the composition of the blood or urine or abnormalities in imaging tests). Lab Interpretation Abnormal (test code = 21044-4) [facility] 10:53:00 Test Item Value Reference Range Interpretation Comments MAGNESIUM (test code = 7310063450) 2.2 mg/dL 1.7-2.4 Lab Interpretation (test code = Normal 28930-8) [facility] [id number] 20:27:21 Test Item Value Reference Range Interpretation Comments TROPONIN I (test code = 0.023 ng/mL <=0.034 8344343314) TOÑA (test code = TOÑA) Reference (Normal) Range (defined by the 99th percentile reference limit): <= 0.034 ng/mL Note: Cardiac troponin begins to rise 3-4 hours after the onset of ischemia. Repeat in 4-6 hours if the sample was drawn within 3-4 hours of the onset of the symptom and found normal. Diagnosis of myocardial injury is made with acute changes in cTn concentrations with at least one serial sample above the 99th percentile upper reference limit (URL), taken together with the patient's clinical presentation. Biotin has been reported to cause a negative bias, interpret results relative to patient's use of biotin. Lab Interpretation Normal (test code = 85961-3) [facility]. METABOLIC PANEL (60140)2022-10-05 20:25:20 Test Item Value Reference Range Interpretation Comments NA (test code = 140 mmol/L 135-145 1032507738) K (test code = 5.0 mmol/L 3.5-5.0 5680327501) CL (test code = 97 mmol/L 98-108 L 9296292734) CO2 TOTAL (test code = 40 mmol/L 23-31 H 7268413628) AGAP (test code = 3 2-16 1773045344) BUN (test code = 37 mg/dL 7-23 H 8993231278) GLUCOSE (test code = 116 mg/dL 70-110 H 1741296440) CREATININE (test code = 2.19 mg/dL 0.60-1.25 H 4796205866) TOTAL BILI (test code = 0.5 mg/dL 0.1-1.1 5920074336) CALCIUM (test code = 8.9 mg/dL 8.6-10.6 5835124448) T PROTEIN (test code = 6.4 g/dL 6.3-8.2 8237923083) ALBUMIN (test code = 3.7 g/dL 3.5-5.0 6139570128) ALK PHOS (test code = 67 U/L 34-122 7479981698) ALTv (test code = 18 U/L 5-50 1742-6) AST(SGOT) (test code = 25 U/L 13-40 5596195489) eGFR (test code = 29.8 mL/min/1.73m2 1217539998) TOÑA (test code = TOÑA) Association of Glomerular Filtration Rate (GFR) and Staging of Kidney Disease* + --+ --+ ------+| GFR (mL/min/1.73 m2) ?| With Kidney Damage ?| ?Without Kidney Damage+ --------+ --------+ +| ?>90 ?| ?Stage one ?| ? Normal ?+ ---+ ---+ -------+| ?60-89 ?| ?Stage two ?| ? Decreased GFR ? + --+ --+ ------+| ?30-59 ?| ?Stage three ?| ? Stage three ? + --+ --+ ------+| ?15-29 ?| ?Stage four ? | ? Stage four ?+ ---+ ---+ -------+| ?<15 (or dialysis) ? ?| ?Stage five ? | ? Stage five ?+ ---+ ---+ -------+ *Each stage assumes the associated GFR level has been in effect for at least three months. ?Stages 1 to 5, with or without kidney disease, indicate chronic kidney disease. Notes: Determination of stages one and two (with eGFR >59mL/min/1.73 m2) requires estimation of kidney damage for at least three months as defined by structural or functional abnormalities of the kidney, manifested by either:Pathological abnormalities or Markers of kidney damage (including abnormalities in the composition of the blood or urine or abnormalities in imaging tests). Lab Interpretation Abnormal (test code = 42479-7) [facility] [id number] 20:25:00 Test Item Value Reference Range Interpretation Comments NT-proBNP (test code = 1580 pg/mL <=125 H 11044-4) TOÑA (test code = TOÑA) Positive: Heart Failure Likely Lab Interpretation (test Abnormal code = 07835-4) [facility] 20:18:58 Test Item Value Reference Range Interpretation Comments MAGNESIUM (test code = 4169964297) 2.2 mg/dL 1.7-2.4 Lab Interpretation (test code = Normal 23786-1) [facility] WITH [id number] 20:11:21 Test Item Value Reference Range Interpretation Comments WBC (test code = 6.08 See_Comment [Automated 6690-2) message] The sy stem which generated this result transmitted reference range : 4.20 - 10.70 10*3/?L. The reference range was not used to interpret this result as normal/abnormal . RBC (test code = 3.36 See_Comment L [Automated 789-8) message] The sy stem which generated this result transmitted reference range : 4.26 - 5.52 10*6/?L. The reference range was not used to interpret this result as normal/abnormal . HGB (test code = 10.8 g/dL 12.2-16.4 L 718-7) HCT (test code = 34.3 % 38.4-49.3 L 4544-3) MCV (test code = 102.1 fL 81.7-95.6 H 787-2) MCH (test code = 32.1 pg 26.1-32.7 785-6) MCHC (test code = 31.5 g/dL 31.2-35.0 786-4) RDW-SD (test code = 55.3 fL 38.5-51.6 H 22232-3) RDW-CV (test code = 14.7 % 12.1-15.4 788-0) PLT (test code = 192 See_Comment [Automated 777-3) message] The sy stem which generated this result transmitted reference range : 150 - 328 10*3/ ?L. The reference r carolynn was not used to interpret this result as normal/abnormal . MPV (test code = 9.7 fL 9.8-13.0 L 97971-6) NRBC/100 WBC (test 0.0 See_Comment [Automat ed code = 0129019645) message] The system which generated this result transmitted reference range : 0.0 - 10.0 /100 WBCs. The refer ence range was not u sed to interpret th is result as normal/abnormal . NRBC x10^3 (test code See_Comment [Auto mated = 7958263033) message] The s ystem which generated this result transmitted reference range : 10*3/?L. The reference range was not used to interpret this result as normal/abnormal . GRAN MAT (NEUT) % 67.9 % (test code = 770-8) IMM GRAN % (test code 0.30 % = 5179846943) LYMPH % (test code = 19.1 % 736-9) MONO % (test code = 7.1 % 5905-5) EOS % (test code = 4.6 % 713-8) BASO % (test code = 1.0 % 706-2) GRAN MAT x10^3(ANC) 4.13 10*3/uL 1.99-6.95 (test code = 8375023657) IMM GRAN x10^3 (test 0.00-0.06 code = 5473640491) LYMPH x10^3 (test code 1.16 10*3/uL 1.09-3.23 = 731-0) MONO x10^3 (test code 0.43 10*3/uL 0.36-1.02 = 742-7) EOS x10^3 (test code = 0.28 10*3/uL 0.06-0.53 711-2) BASO x10^3 (test code 0.06 10*3/uL 0.01-0.09 = 704-7) Lab Interpretation Abnormal (test code = 40264-0) [facility] HEMOGLOBIN A1C [id number] 16:38:00 Test Item Value Reference Range Interpretation Comments POCT HBA1C (test code = 4548-4) 6.1 % 4-6 A Lab Interpretation (test code = Abnormal 05150-6) [facility] HEMOGLOBIN A1C [id number] 16:38:00 Test Item Value Reference Range Interpretation Comments POCT HBA1C (test code = 4548-4) 6.1 % 4-6 A Lab Interpretation (test code = Abnormal 26452-0) [facility] HEMOGLOBIN A1C [id number] 16:38:00 Test Item Value Reference Range Interpretation Comments POCT HBA1C (test code = 4548-4) 6.1 % 4-6 A Lab Interpretation (test code = Abnormal 93701-4) [facility] HEMOGLOBIN A1C [id number] 16:38:00 Test Item Value Reference Range Interpretation Comments POCT HBA1C (test code = 4548-4) 6.1 % 4-6 A Lab Interpretation (test code = Abnormal 93680-1) [facility] HEMOGLOBIN A1C [id number] 16:38:00 Test Item Value Reference Range Interpretation Comments POCT HBA1C (test code = 4548-4) 6.1 % 4-6 A Lab Interpretation (test code = Abnormal 04369-6) [facility] HEMOGLOBIN A1C [id number] 16:38:00 Test Item Value Reference Range Interpretation Comments POCT HBA1C (test code = 4548-4) 6.1 % 4-6 A Lab Interpretation (test code = Abnormal 11670-2) [facility] GLUCOSE (AUTOMATED)2022-09-18 21:57:22 Test Item Value Reference Range Interpretation Comments POCT GLU (test code = 9890341529) 326 mg/dL 70-110 H Lab Interpretation (test code = Abnormal 62756-3) [facility] GLUCOSE (AUTOMATED)2022-09-18 17:22:53 Test Item Value Reference Range Interpretation Comments POCT GLU (test code = 4470240947) 288 mg/dL 70-110 H Lab Interpretation (test code = Abnormal 26049-2) [facility] GLUCOSE (AUTOMATED)2022-09-18 13:10:20 Test Item Value Reference Range Interpretation Comments POCT GLU (test code = 7462313651) 179 mg/dL 70-110 H Lab Interpretation (test code = Abnormal 31982-4) [facility] GLUCOSE (AUTOMATED)2022-09-18 01:48:01 Test Item Value Reference Range Interpretation Comments POCT GLU (test code = 9101383231) 202 mg/dL 70-110 H Lab Interpretation (test code = Abnormal 47642-3) [facility] + LACTIC [id number] 22:20:50 Test Item Value Reference Range Interpretation Comments PH (test code = 7.34 7.32-7.42 0030071079) PCO2 JOHANNA (test code = 60 See_Comment H [Auto mated 8442657472) message] The sy stem which generated this result transmitted reference range : 41 - 51 mmHg. The reference range was not used to interpret this result as normal/abnormal . PO2 JOHANNA (test code = 59 See_Comment HH [Autom ated 7314829238) message] The sy stem which generated this result transmitted reference range : 25 - 40 mmHg. The reference range was not used to interpret this result as normal/abnormal . HCO3 JOHANNA (test code = 31 See_Comment H [Auto mated 7366464874) message] The sy stem which generated this result transmitted reference range : 24 - 28 mEq/L. The reference range was not used to interpret this result as normal/abnormal . AC VBE(BEAKER) (test 4.3 mEq/L code = 9888741850) THB JOHANNA (test code = 10.3 g/dL 13.5-18.0 L 4039358079) %O2HB JOHANNA (test code = 89.3 % 52.0-63.0 H 8250379008) %COHB JOHANNA (test code = 0.3 % 0.0-1.5 1645486314) %METHB JOHANNA (test code = 0.3 % 0.4-1.5 L 1207287992) VOL%O2 JOHANNA (test code = 13.0 % 6.0-12.0 H 6899333859) NA (test code = 139 mmol/L 135-145 8458247270) K+ (test code = 4.2 mmol/L 3.5-5.0 3657030770) AC CA IONZ (test code = 4.70 mg/dL 4.50-5.30 8113702092) GLUCOSE (test code = 129 mg/dL 70-110 H 7238962993) LACTIC ACID (test code 0.92 mmol/L 0.50-2.20 = 8024223351) Lab Interpretation Abnormal (test code = 15299-2) [facility] LACTIC [id number] 21:21:10 Test Item Value Reference Range Interpretation Comments PH (test code = 7.32 7.32-7.42 7181580524) PCO2 JOHANNA (test code = 71 See_Comment H [Auto mated 6247886109) message] The sy stem which generated this result transmitted reference range : 41 - 51 mmHg. The reference range was not used to interpret this result as normal/abnormal . PO2 JOHANNA (test code = 49 See_Comment H [Autom ated 6244468165) message] The sy stem which generated this result transmitted reference range : 25 - 40 mmHg. The reference range was not used to interpret this result as normal/abnormal . HCO3 JOHANNA (test code = 36 See_Comment H [Auto mated 1715688889) message] The sy stem which generated this result transmitted reference range : 24 - 28 mEq/L. The reference range was not used to interpret this result as normal/abnormal . AC VBE(BEAKER) (test 7.6 mEq/L code = 5020279668) THB JOHANNA (test code = 10.8 g/dL 13.5-18.0 L 4996368011) %O2HB JOHANNA (test code = 83.3 % 52.0-63.0 H 9227459423) %COHB JOHANNA (test code = 0.6 % 0.0-1.5 4623508186) %METHB JOHANNA (test code = 0.3 % 0.4-1.5 L 4534847160) VOL%O2 JOHANNA (test code = 12.7 % 6.0-12.0 H 0329712621) NA (test code = 139 mmol/L 135-145 4076044257) K+ (test code = 4.2 mmol/L 3.5-5.0 4539996264) AC CA IONZ (test code = 4.60 mg/dL 4.50-5.30 6038597580) GLUCOSE (test code = 153 mg/dL 70-110 H 9688698346) LACTIC ACID (test code 1.04 mmol/L 0.50-2.20 = 0741969465) Lab Interpretation Abnormal (test code = 08895-6) [facility] [id number] 20:51:35 Test Item Value Reference Range Interpretation Comments TROPONIN I (test code = 0.040 ng/mL <=0.034 H 3573196342) TOÑA (test code = TOÑA) Reference (Normal) Range (defined by the 99th percentile reference limit): <= 0.034 ng/mL Note: Cardiac troponin begins to rise 3-4 hours after the onset of ischemia. Repeat in 4-6 hours if the sample was drawn within 3-4 hours of the onset of the symptom and found normal. Diagnosis of myocardial injury is made with acute changes in cTn concentrations with at least one serial sample above the 99th percentile upper reference limit (URL), taken together with the patient's clinical presentation. Biotin has been reported to cause a negative bias, interpret results relative to patient's use of biotin. Lab Interpretation Abnormal (test code = 79559-1) [facility] [id number] 20:49:11 Test Item Value Reference Range Interpretation Comments NT-proBNP (test code = 4340 pg/mL <=125 H 63841-9) TOÑA (test code = TOÑA) Positive: Heart Failure Likely Lab Interpretation (test Abnormal code = 17363-0) [facility] 20:40:33 Test Item Value Reference Range Interpretation Comments MAGNESIUM (test code = 7140514089) 2.1 mg/dL 1.7-2.4 Lab Interpretation (test code = Normal 27757-4) [facility]OLIC PAN[facility] (04727)2022-09-17 20:40:13 Test Item Value Reference Range Interpretation Comments NA (test code = 139 mmol/L 135-145 3215346004) K (test code = 4.4 mmol/L 3.5-5.0 6496824255) CL (test code = 97 mmol/L 98-108 L 7402325162) CO2 TOTAL (test code = 37 mmol/L 23-31 H 5419475622) AGAP (test code = 5 2-16 2375019136) BUN (test code = 50 mg/dL 7-23 H 2348013439) GLUCOSE (test code = 160 mg/dL 70-110 H 6576420229) CREATININE (test code = 2.99 mg/dL 0.60-1.25 H 7441188636) TOTAL BILI (test code = 0.5 mg/dL 0.1-1.5 8022683530) CALCIUM (test code = 8.4 mg/dL 8.6-10.6 L 2272138131) T PROTEIN (test code = 6.1 g/dL 6.3-8.2 L 1461476713) ALBUMIN (test code = 3.6 g/dL 3.5-5.0 3030574856) ALK PHOS (test code = 89 U/L 34-122 7357631770) ALTv (test code = 18 U/L 5-50 1742-6) AST(SGOT) (test code = 25 U/L 13-40 4681299249) eGFR (test code = 20.8 mL/min/1.73m2 9251472284) TOÑA (test code = TOÑA) Association of Glomerular Filtration Rate (GFR) and Staging of Kidney Disease* + --+ --+ ------+| GFR (mL/min/1.73 m2) ?| With Kidney Damage ?| ?Without Kidney Damage+ --------+ --------+ +| ?>90 ?| ?Stage one ?| ? Normal ?+ ---+ ---+ -------+| ?60-89 ?| ?Stage two ?| ? Decreased GFR ? + --+ --+ ------+| ?30-59 ?| ?Stage three ?| ? Stage three ? + --+ --+ ------+| ?15-29 ?| ?Stage four ? | ? Stage four ?+ ---+ ---+ -------+| ?<15 (or dialysis) ? ?| ?Stage five ? | ? Stage five ?+ ---+ ---+ -------+ *Each stage assumes the associated GFR level has been in effect for at least three months. ?Stages 1 to 5, with or without kidney disease, indicate chronic kidney disease. Notes: Determination of stages one and two (with eGFR >59mL/min/1.73 m2) requires estimation of kidney damage for at least three months as defined by structural or functional abnormalities of the kidney, manifested by either:Pathological abnormalities or Markers of kidney damage (including abnormalities in the composition of the blood or urine or abnormalities in imaging tests). Lab Interpretation Abnormal (test code = 99639-0) [facility] 20:40:13 Test Item Value Reference Range Interpretation Comments LIPASE (test code = 0886005893) 97 U/L 0-220 Lab Interpretation (test code = Normal 81154-4) [facility] WITH [id number] 20:29:49 Test Item Value Reference Range Interpretation Comments WBC (test code = 7.51 See_Comment [Automated 7190-2) message] The sy stem which generated this result transmitted reference range : 4.20 - 10.70 10*3/?L. The reference range was not used to interpret this result as normal/abnormal . RBC (test code = 3.11 See_Comment L [Automated 789-8) message] The sy stem which generated this result transmitted reference range : 4.26 - 5.52 10*6/?L. The reference range was not used to interpret this result as normal/abnormal . HGB (test code = 10.0 g/dL 12.2-16.4 L 718-7) HCT (test code = 31.6 % 38.4-49.3 L 4544-3) MCV (test code = 101.6 fL 81.7-95.6 H 787-2) MCH (test code = 32.2 pg 26.1-32.7 785-6) MCHC (test code = 31.6 g/dL 31.2-35.0 786-4) RDW-SD (test code = 59.1 fL 38.5-51.6 H 35150-4) RDW-CV (test code = 15.8 % 12.1-15.4 H 788-0) PLT (test code = 178 See_Comment [Automated 777-3) message] The sy stem which generated this result transmitted reference range : 150 - 328 10*3/ ?L. The reference r carolynn was not used to interpret this result as normal/abnormal . MPV (test code = 10.8 fL 9.8-13.0 29439-2) NRBC/100 WBC (test 0.0 See_Comment [Automat ed code = 1245744291) message] The system which generated this result transmitted reference range : 0.0 - 10.0 /100 WBCs. The refer ence range was not u sed to interpret th is result as normal/abnormal . NRBC x10^3 (test code See_Comment [Auto mated = 0047330263) message] The s ystem which generated this result transmitted reference range : 10*3/?L. The reference range was not used to interpret this result as normal/abnormal . GRAN MAT (NEUT) % 61.8 % (test code = 770-8) IMM GRAN % (test code 0.50 % = 1841985352) LYMPH % (test code = 23.4 % 736-9) MONO % (test code = 8.9 % 5905-5) EOS % (test code = 4.5 % 713-8) BASO % (test code = 0.9 % 706-2) GRAN MAT x10^3(ANC) 4.63 10*3/uL 1.99-6.95 (test code = 7873885340) IMM GRAN x10^3 (test 0.04 10*3/uL 0.00-0.06 code = 3660682701) LYMPH x10^3 (test code 1.76 10*3/uL 1.09-3.23 = 731-0) MONO x10^3 (test code 0.67 10*3/uL 0.36-1.02 = 742-7) EOS x10^3 (test code = 0.34 10*3/uL 0.06-0.53 711-2) BASO x10^3 (test code 0.07 10*3/uL 0.01-0.09 = 704-7) Lab Interpretation Abnormal (test code = 20399-3) [facility] GLUCOSE (AUTOMATED)2022-09-17 20:08:02 Test Item Value Reference Range Interpretation Comments POCT GLU (test code = 8196853473) 149 mg/dL 70-110 H Lab Interpretation (test code = Abnormal 76522-7) [facility] GLUCOSE(AGE >30DAYS)2022-09-17 20:08:00 Test Item Value Reference Range Interpretation Comments POCT Glu (age>30days) (test code = 149 mg/dL 70-110 A 3342) Lab Interpretation (test code = Abnormal 55723-6) [facility] [id number] 06:00:00 Test Item Value Reference Range Interpretation Comments SODIUM (test code = 131 mmol/l 134.0-147.0 L NA) POTASSIUM (test code 4.3 mmol/L 3.6-5.2 N = K) CHLORIDE (test code 98 mmol/l 98.0-107.0 N = CL) CARBON DIOXIDE (test 29.9 mmol/l 21.0-33.0 N code = CO2) ANION GAP (test code 7.4 0-20 N = GAP) GLUCOSE (test code = 146 mg/dl 70.0-110.0 H GLU) BLOOD UREA NITROGEN 33 mg/dl 7.0-18.0 H (test code = BUN) GLOMERULAR 33 mL/min The Glomerular FILTRATION RATE Filtration R ate is a (test code = GFR) calculated parameterbased on serum Creatinin e, patient age and sex. GFR valuesless than 60 mL/min/1.73 squ are meters are miguel cative ofChronic Kidne y Disease. Values less than 15 mL/min/1.73squa re meters indicate Kidney failure. The calculation for GFR is based on the CK D-EPI (2020) calculat ion. This formulais race indifferent and is the recommended for christofer for GFRby the [facility] on for Adults.The GFR will not calculate i f the sex is unknown or if thepatient's ag e is <18 years. CREATININE (test 2.10 mg/dL 0.60-1.30 H code = CREAT) ESTIMATED CREAT 33 mL/min >30 CLEARANCE (test code = ECRCL) TOTAL PROTEIN (test 5.5 gm/dL 6.4-8.2 L code = PROT) ALBUMIN (test code = 2.5 gm/dl 3.2-4.7 L ALB) CALCIUM (test code = 8.5 mg/dl 8.0-10.5 N CA) BILIRUBIN TOTAL 0.5 mg/dl 0.0-1.0 N (test code = BILT) SGOT/AST (test code 21 Units/L 15-37 N = AST) SGPT/ALT (test code 26 Units/L 12.0-78.0 N = ALT) ALKALINE PHOSPHATASE 74 Units/L 50.0-136.0 N TOTAL (test code = ALKP) [id number] 06:00:00 Test Item Value Reference Range Interpretation Comments MAGNESIUM (test code = MAG) 1.9 mg/dl 1.8-2.4 N CBC W/AUTO [id number] 05:36:00 Test Item Value Reference Range Interpretation Comments WHITE BLOOD CELL (test code = 4.7 K/mm3 4.5-11.0 N WBC) RED BLOOD CELL (test code = 3.07 M/mm3 4.40-5.90 L RBC) HEMOGLOBIN (test code = HGB) 9.9 gm/dL 13.0-17.0 L HEMATOCRIT (test code = HCT) 31.1 % 36.0-48.0 L MEAN CELL VOLUME (test code = 101.3 UM3 80.0-94.0 H MCV) MEAN CELL HGB (test code = MCH) 32.2 UUG 25.5-32.5 N MEAN CELL HGB CONCETRATION 31.8 gm/dL 29.0-35.5 N (test code = MCHC) RED CELL DISTRIBUTION WIDTH 16.5 % 11.5-15.0 H (test code = RDW) RED CELL DISTRIBUTION WIDTH SD 60.7 fL 34.8-50.2 H (test code = RDW-SD) PLATELET COUNT (test code = 204 K/mm3 150-400 N PLT) MEAN PLATELET VOLUME (test code 10.6 fl 7.4-10.4 H = MPV) NEUTROPHIL % (test code = NT%) 92.0 % 49.0-76.0 H IMMATURE GRANULOCYTE % (test 0.6 % 0.0-0.4 H code = IG%) LYMPHOCYTE % (test code = LY%) 5.1 % 23.0-38.0 L MONOCYTE % (test code = MO%) 2.1 % 1.0-10.0 N EOSINOPHIL % (test code = EO%) 0.0 % 1.0-5.0 L BASOPHIL % (test code = BA%) 0.2 % 0.0-1.0 N NUCLEATED RBC % (test code = 0.0 % 0.0-0.1 N NRBC%) NEUTROPHIL # (test code = NT#) 4.4 K/mm3 2.4-6.3 N IMMATURE GRANULOCYTE # (test 0.03 x10 3/uL 0.00-0.07 N code = IG#) LYMPHOCYTE # (test code = LY#) 0.2 K/mm3 1.2-4.0 L MONOCYTE # (test code = MO#) 0.1 K/mm3 0.0-0.6 N EOSINOPHIL # (test code = EO#) 0.0 K/MM3 0.0-0.7 N BASOPHIL # (test code = BA#) 0.0 K/mm3 0.0-0.2 N NUCLEATED RBC # (test code = 0.00 X10 3uL 0.00-0.01 N NRBC#) Specimen comments: Daily while on Heparin- XR CHEST 1 [id number] 14:31:00 [facility] 1950 Sex: M FAX: Caren Lopes MD [phone] [place]: St: ADM FAX: Kellie Nava [phone] Name: RICKI MCCLAIN [facility] : 1950 Age/S: 72/M [address] [facility] Unit #: [id number] Loc: E.IC02 [place], [place] Phys: Kellie Vanegas [address] Acct: [id number] Dis Date: Status: ADM IN PHONE #: [phone] Exam Date: 08/25/2022 1431 FAX #: [phone] Reason: SOB EXAMS: CPT CODE: [id number] XRCHEST 1 V 94255 HISTORY: Shortness of breath Location: C3 COMPARISON:08/21/2022 FINDINGS: There is cardiomegaly with perihilar and basilar opacities. No pneumothorax. Aortic calcifications are present. No other changes compared to prior study. IMPRESSION: 1. Stable chest with perihilar and basilar opacities compatible with areas of edema and pneumonia. at 1431 Reported and signed by: Chuck Lin M.D. CC: Caren Lopes MD; Kellie TORRES Technologist: Melonie Arguelles Trnscrd Date/Time/By: 08/25/2022 (1431) : By: [email or web address] PAGE 1 Signed Report FAX: Caren Lopes MD [phone] [place]: St: ADM FAX: Kellie Nava [phone] Name: RICKI MCCLAIN [facility] : 1950 Age/S: 72/M [address] [facility] Unit #: [id number] Loc: [address] Phys: Kellie Vanegas [address] Acct: [id number] Dis Date: Status: ADM IN PHONE #: [phone] Exam Date: 08/25/2022 1431 FAX #: [phone] Reason: SOB EXAMS: CPT CODE: [id number] XR CHEST 1 V 35144 (Continued) Orig Print D/T: S: 08/25/2022 (1434) PAGE 2 Signed ReportCOVID 19 Asymptomatic IH [id number] 05:47:00 Test Item Value Reference Range Interpretation Comments COVID 19 NEGATIVE NEGATIVE Negative result s should be Asymptomatic IH AG treated a s presumptive and (test code = ifinconsistent with COVNONPUIAG) clinical signs and symptoms, or ne cessaryfor patient managem ent, should be tested with an alternativemole cular assay. Negative results do not preclude [id number] tion and should not be u sed as the sole basis forp atient management deci sions. Negative result s should beconsidered in the context of a pa tient's recent exposure s,history, presence of cli nical signs and symptoms consistentwith COVID-19. BASIC METABOLIC [id number] 05:46:00 Test Item Value Reference Range Interpretation Comments SODIUM (test code = 134 mmol/l 134.0-147.0 N NA) POTASSIUM (test 3.7 mmol/L 3.6-5.2 N code = K) CHLORIDE (test code 98 mmol/l 98.0-107.0 N = CL) CARBON DIOXIDE 34.8 mmol/l 21.0-33.0 H (test code = CO2) ANION GAP (test 4.9 0-20 N code = GAP) GLUCOSE (test code 125 mg/dl 70.0-110.0 H = GLU) BLOOD UREA NITROGEN 35 mg/dl 7.0-18.0 H (test code = BUN) GLOMERULAR 32 mL/min The Glomerular FILTRATION RATE Filtration R ate is a (test code = GFR) calculated parameterbased on serum Creatinine, pat ient age and sex. GFR va luesless than 60 mL/min/ 1.73 square meters a re indicative ofCh ronic Kidney Disease. Values less than 15 mL/min/1.73squa re meters indicate Kidney failure. The calculation for GFR is based on the CK D-EPI (2020) calculat ion. This formulais race indifferent and is the recommended for christofer for GFRby the [facility] for Adults.The GFR will not calculate if th e sex is unknown or if thepatient's ag e is <18 years. CREATININE (test 2.17 mg/dL 0.60-1.30 H code = CREAT) ESTIMATED CREAT 32 mL/min >30 CLEARANCE (test code = ECRCL) CALCIUM (test code 8.2 mg/dl 8.0-10.5 N = CA) CBC W/AUTO [id number] 05:34:00 Test Item Value Reference Range Interpretation Comments WHITE BLOOD CELL (test code = 4.8 K/mm3 4.5-11.0 N WBC) RED BLOOD CELL (test code = 2.87 M/mm3 4.40-5.90 L RBC) HEMOGLOBIN (test code = HGB) 9.0 gm/dL 13.0-17.0 L HEMATOCRIT (test code = HCT) 28.0 % 36.0-48.0 L MEAN CELL VOLUME (test code = 97.6 UM3 80.0-94.0 H MCV) MEAN CELL HGB (test code = MCH) 31.4 UUG 25.5-32.5 N MEAN CELL HGB CONCETRATION 32.1 gm/dL 29.0-35.5 N (test code = MCHC) RED CELL DISTRIBUTION WIDTH 16.1 % 11.5-15.0 H (test code = RDW) RED CELL DISTRIBUTION WIDTH SD 56.3 fL 34.8-50.2 H (test code = RDW-SD) PLATELET COUNT (test code = 180 K/mm3 150-400 N PLT) MEAN PLATELET VOLUME (test code 10.4 fl 7.4-10.4 N = MPV) NEUTROPHIL % (test code = NT%) 75.5 % 49.0-76.0 N IMMATURE GRANULOCYTE % (test 0.4 % 0.0-0.4 N code = IG%) LYMPHOCYTE % (test code = LY%) 14.1 % 23.0-38.0 L MONOCYTE % (test code = MO%) 6.9 % 1.0-10.0 N EOSINOPHIL % (test code = EO%) 2.5 % 1.0-5.0 N BASOPHIL % (test code = BA%) 0.6 % 0.0-1.0 N NUCLEATED RBC % (test code = 0.0 % 0.0-0.1 N NRBC%) NEUTROPHIL # (test code = NT#) 3.6 K/mm3 2.4-6.3 N IMMATURE GRANULOCYTE # (test 0.02 x10 3/uL 0.00-0.07 N code = IG#) LYMPHOCYTE # (test code = LY#) 0.7 K/mm3 1.2-4.0 L MONOCYTE # (test code = MO#) 0.3 K/mm3 0.0-0.6 N EOSINOPHIL # (test code = EO#) 0.1 K/MM3 0.0-0.7 N BASOPHIL # (test code = BA#) 0.0 K/mm3 0.0-0.2 N NUCLEATED RBC # (test code = 0.00 X10 3uL 0.00-0.01 N NRBC#) Specimen comments: Daily while on HeparinFE W/TOTAL IRON BINDING CAP.2022-08-24 11:08:00 Test Item Value Reference Range Interpretation Comments SERUM IRON (test 39 mcg/dl 35.0-150.0 N Patients tr eated with code = IRON) metal-binding d rugs such asdeferoxamine may have depressed iron values due to ironchel ation. Clinical impact would be mitigated byconsideration of clinical sympto ms. TOTAL IRON BINDING 255 mcg/dl 260.0-445.0 L Result is in microgram CAPACITY (test code per deci liter = TIBC) IRON SATURATION 15 % 15-50 N (test code = FESAT) [id number] 11:08:00 Test Item Value Reference Range Interpretation Comments FERRITIN (test code = PRETTY) 217 ng/mL 23.9-336.2 N BASIC METABOLIC [id number] 10:52:00 Test Item Value Reference Range Interpretation Comments SODIUM (test code = 133 mmol/l 134.0-147.0 L NA) POTASSIUM (test 4.3 mmol/L 3.6-5.2 N code = K) CHLORIDE (test code 96 mmol/l 98.0-107.0 L = CL) CARBON DIOXIDE 34.7 mmol/l 21.0-33.0 H (test code = CO2) ANION GAP (test 6.6 0-20 N code = GAP) GLUCOSE (test code 176 mg/dl 70.0-110.0 H = GLU) BLOOD UREA NITROGEN 41 mg/dl 7.0-18.0 H (test code = BUN) GLOMERULAR 30 mL/min The Glomerular FILTRATION RATE Filtration R ate is a (test code = GFR) calculated parameterbased on serum Creatinine, pat ient age and sex. GFR va luesless than 60 mL/min/ 1.73 square meters a re indicative ofCh ronic Kidney Disease. Values less than 15 mL/min/1.73squa re meters indicate Kidney failure. The calculation for GFR is based on the CK D-EPI (2020) calculat ion. This formulais race indifferent and is the recommended for christofer for GFRby the [facility] for Ad[facility].The GFR will not calculate if th e sex is unknown or if thepatient's ag e is <18 years. CREATININE (test 2.26 mg/dL 0.60-1.30 H code = CREAT) ESTIMATED CREAT 31 mL/min >30 CLEARANCE (test code = ECRCL) CALCIUM (test code 8.3 mg/dl 8.0-10.5 N = CA) THROMBOPLASTIN TIME [id number] 10:49:00 Test Item Value Reference Range Interpretation Comments THROMBOPLASTIN TIME 71.50 SECONDS 25.86-36.07 [facility] PARTIAL (test code = Therape utic Range - PTT) APTT of 48.8-80 .3 secondscorrelat es with plasma heparin concentration o f 0.2-0.4 u/mL CBC W/AUTO [id number] 04:46:00 Test Item Value Reference Range Interpretation Comments WHITE BLOOD CELL (test code = 6.8 K/mm3 4.5-11.0 N WBC) RED BLOOD CELL (test code = 2.89 M/mm3 4.40-5.90 L RBC) HEMOGLOBIN (test code = HGB) 9.0 gm/dL 13.0-17.0 L HEMATOCRIT (test code = HCT) 29.1 % 36.0-48.0 L MEAN CELL VOLUME (test code = 100.7 UM3 80.0-94.0 H MCV) MEAN CELL HGB (test code = MCH) 31.1 UUG 25.5-32.5 N MEAN CELL HGB CONCETRATION 30.9 gm/dL 29.0-35.5 N (test code = MCHC) RED CELL DISTRIBUTION WIDTH 16.1 % 11.5-15.0 H (test code = RDW) RED CELL DISTRIBUTION WIDTH SD 59.0 fL 34.8-50.2 H (test code = RDW-SD) PLATELET COUNT (test code = 168 K/mm3 150-400 N PLT) MEAN PLATELET VOLUME (test code 10.2 fl 7.4-10.4 N = MPV) NEUTROPHIL % (test code = NT%) 71.7 % 49.0-76.0 N IMMATURE GRANULOCYTE % (test 0.3 % 0.0-0.4 N code = IG%) LYMPHOCYTE % (test code = LY%) 18.2 % 23.0-38.0 L MONOCYTE % (test code = MO%) 7.0 % 1.0-10.0 N EOSINOPHIL % (test code = EO%) 2.2 % 1.0-5.0 N BASOPHIL % (test code = BA%) 0.6 % 0.0-1.0 N NUCLEATED RBC % (test code = 0.0 % 0.0-0.1 N NRBC%) NEUTROPHIL # (test code = NT#) 4.9 K/mm3 2.4-6.3 N IMMATURE GRANULOCYTE # (test 0.02 x10 3/uL 0.00-0.07 N code = IG#) LYMPHOCYTE # (test code = LY#) 1.2 K/mm3 1.2-4.0 N MONOCYTE # (test code = MO#) 0.5 K/mm3 0.0-0.6 N EOSINOPHIL # (test code = EO#) 0.2 K/MM3 0.0-0.7 N BASOPHIL # (test code = BA#) 0.0 K/mm3 0.0-0.2 N NUCLEATED RBC # (test code = 0.00 X10 3uL 0.00-0.01 N NRBC#) Specimen comments: Daily while on HeparinTHROMBOPLASTIN TIME [id number] 04:45:00 Test Item Value Reference Range Interpretation Comments THROMBOPLASTIN TIME 74.80 SECONDS 25.86-36.07 [facility] PARTIAL (test code = Therape utic Range - PTT) APTT of 48.8-80 .3 secondscorrelat es with plasma heparin concentration o f 0.2-0.4 u/mL THROMBOPLASTIN TIME [id number] 23:18:00 Test Item Value Reference Range Interpretation Comments THROMBOPLASTIN TIME 63.80 SECONDS 25.86-36.07 [facility] PARTIAL (test code = Therape utic Range - PTT) APTT of 48.8-80 .3 secondscorrelat es with plasma heparin concentration o f 0.2-0.4 u/mL THROMBOPLASTIN TIME [id number] 16:42:00 Test Item Value Reference Range Interpretation Comments THROMBOPLASTIN TIME 43.40 SECONDS 25.86-36.07 [facility] PARTIAL (test code = Therape utic Range - PTT) APTT of 48.8-80 .3 secondscorrelat es with plasma heparin concentration o f 0.2-0.4 u/mL - US RETRO [id number] 10:12:00 [facility] : 1950 Sex: M FAX: Caren Lopes MD [phone] [place]: St: ADM FAX: Selina Chapa MD [phone] Name: RICKI MCCLAIN [facility] : 1950 Age/S: 72/M [address] [facility] Unit #: [id number] Loc: [address] Phys: [place] [id number] Acct: [id number] Dis Date: Status: ADM IN PHONE #: [phone] Exam Date: 08/23/2022911 FAX #: [phone] Reason: DIA vs CKD EXAMS: CPT CODE: [id number] US RETRO LTD 76851 EXAM: - US RETRO LTD HISTORY: DIA vs CKD Location code:C3 COMPARISON: None available time of interpretation. TECHNIQUE: Grayscale B-mode and color Doppler sonographic images of the kidneys was performed. FINDINGS: The right kidney measures 10.2 x 5.3 x 4.9cm and the left measures 10.5 x 5.1 x 4.6 cm. Hypoechoic structure in the mid right kidney measuring 2.5 x 2.5 cm is present. There is also a septated cystic structure in the right kidney measuring 2.8 x 2.6 cm. No hydronephrosis. There is normal renal cortical thickness and echogenicity. Urinary bladder volume is 168 mL. IMPRESSION: 1. Indeterminate 2.5 cm hypoechoic lesion in the right kidney as well as indeterminate septatedcystic structure in the right kidney measuring 2.[address] or MRI of the kidneys the with and withoutcontrast utilizing renal mass protocol is recommended. at 1012 Reported and signed by: Hesham Puri M.D. CC: Caren Lopes MD; Selina Bedolla MD Technologist: CATARINO PALMA Trnscrd Date/Time/By: 08/23/2022 (1012) : By: [email or web address] PAGE 1 Signed Report FAX: Caren Lopes MD [phone] [place]: St: ADM FAX: Selina Chapa MD [phone] Name: RICKI MCCLAIN [facility] : 1950 Age/S: 72/M [address] [facility] Unit #: [id number] Loc: [address] Phys: [place] [address] Acct: [id number] Dis Date: Status: ADM IN PHONE #: [phone] Exam Date: 08/23/2022 0912 FAX #: [phone] Reason: DIA vs CKD EXAMS: CPT CODE: [id number] US RETRO LTD 59695 (Continued) Orig Print D/T: S: 08/23/2022 (1015) PAGE 2 Signed ReportTHROMBOPLASTIN TIME [id number] 08:50:00 Test Item Value Reference Range Interpretation Comments THROMBOPLASTIN TIME 82.60 SECONDS 25.86-36.07 H [facility] PARTIAL (test code = Therape utic Range - PTT) APTT of 48.8-80 .3 secondscorrelat es with plasma heparin concentration o f 0.2-0.4 u/mL CBC W/AUTO [id number] 08:43:00 Test Item Value Reference Range Interpretation Comments WHITE BLOOD CELL (test code = 8.3 K/mm3 4.5-11.0 N WBC) RED BLOOD CELL (test code = 3.06 M/mm3 4.40-5.90 L RBC) HEMOGLOBIN (test code = HGB) 9.6 gm/dL 13.0-17.0 L HEMATOCRIT (test code = HCT) 30.4 % 36.0-48.0 L MEAN CELL VOLUME (test code = 99.3 UM3 80.0-94.0 H MCV) MEAN CELL HGB (test code = MCH) 31.4 UUG 25.5-32.5 N MEAN CELL HGB CONCETRATION 31.6 gm/dL 29.0-35.5 N (test code = MCHC) RED CELL DISTRIBUTION WIDTH 16.1 % 11.5-15.0 H (test code = RDW) RED CELL DISTRIBUTION WIDTH SD 57.7 fL 34.8-50.2 H (test code = RDW-SD) PLATELET COUNT (test code = 171 K/mm3 150-400 N PLT) MEAN PLATELET VOLUME (test code 10.3 fl 7.4-10.4 N = MPV) NEUTROPHIL % (test code = NT%) 77.5 % 49.0-76.0 H IMMATURE GRANULOCYTE % (test 0.2 % 0.0-0.4 N code = IG%) LYMPHOCYTE % (test code = LY%) 14.1 % 23.0-38.0 L MONOCYTE % (test code = MO%) 6.8 % 1.0-10.0 N EOSINOPHIL % (test code = EO%) 0.8 % 1.0-5.0 L BASOPHIL % (test code = BA%) 0.6 % 0.0-1.0 N NUCLEATED RBC % (test code = 0.0 % 0.0-0.1 N NRBC%) NEUTROPHIL # (test code = NT#) 6.4 K/mm3 2.4-6.3 H IMMATURE GRANULOCYTE # (test 0.02 x10 3/uL 0.00-0.07 N code = IG#) LYMPHOCYTE # (test code = LY#) 1.2 K/mm3 1.2-4.0 N MONOCYTE # (test code = MO#) 0.6 K/mm3 0.0-0.6 N EOSINOPHIL # (test code = EO#) 0.1 K/MM3 0.0-0.7 N BASOPHIL # (test code = BA#) 0.1 K/mm3 0.0-0.2 N NUCLEATED RBC # (test code = 0.00 X10 3uL 0.00-0.01 N NRBC#) Specimen comments: Daily while on HeparinTHROMBOPLASTIN TIME [id number] 22:42:00 Test Item Value Reference Range Interpretation Comments THROMBOPLASTIN TIME 41.20 SECONDS 25.86-36.07 [facility] PARTIAL (test code = Therape utic Range - PTT) APTT of 48.8-80 .3 secondscorrelat es with plasma heparin concentration o f 0.2-0.4 u/mL THROMBOPLASTIN TIME [id number] 15:55:00 Test Item Value Reference Range Interpretation Comments THROMBOPLASTIN TIME 55.90 SECONDS 25.86-36.07 [facility] PARTIAL (test code = Therape utic Range - PTT) APTT of 48.8-80 .3 secondscorrelat es with plasma heparin concentration o f 0.2-0.4 u/mL PROTHROMBIN [id number] 15:54:00 Test Item Value Reference Range Interpretation Comments PROTHROMBIN TIME 10.1 SECONDS 9.9-12.8 N PATIENT (test code = PTP) INTERNATIONAL NORMAL 0.9 0.89-1.14 N THE INR IS TO BE USED RATIO (test code = ONLY FOR MONITORING INR) ORAL ANTICOAGULANTTH ERAPY. THE FOLLOWING A RE SUGGESTED RANGE S FROM [facility] LEGE OF CHEST PHYSICIANS:MIGUEL CATION INR VALUEPROPHY LAXIS OF VENOUS THROM BOSIS (ORTHOPEDIC RASHAD OSCAR) 2.0 - 3.0PROPHY LAXIS OF VENOUS THROM BOSIS (OTHER THAN HIG H-RISK SURGERY) 2.0 - 3.0TREATMENT OF DEEP VEIN THROMBOSIS OR PULMONARY EMBOL ISM 2.0 - 3.0PREVENTION OF SYSTEMIC EMBOLI SM TISSUE HEART VA LVES 2.0 - 3.0 ACUTE MYOCARDIAL INFA RCTION (TO PREVENT SYS TEMIC EMBOLISM) 2.0 - 3.0 ACUTE MYOCARDIA L INFARCTION (TO PREVENT RECURRENT INFAR CT) 2.5 - 3.0 VALVULAR HEART DISEASE 2.0 - 3 .0 ATRIAL FIBRILAT ION 2.0 - 3.0BILEAFLET MECHANICAL VALV E IN AORTIC POSITION 2.0 - 3.0MECHANICAL PROSTHETIC VALV ES (HIGH RISK) 2.5 - 3.5PRESENCE OF LUPUS ANTICOAGULANT O R ANTIPHOSPHOLIPI D ANTIBODIES 2.5 - 3.5 PROTHROMBIN [id number] 06:35:00 Test Item Value Reference Range Interpretation Comments PROTHROMBIN TIME 9.9 SECONDS 9.9-12.8 N PATIENT (test code = PTP) INTERNATIONAL NORMAL 0.9 0.89-1.14 N THE INR IS TO BE USED RATIO (test code = ONLY FOR MONITORING INR) ORAL ANTICOAGULANTTH ERAPY. THE FOLLOWING A RE SUGGESTED RANGE S FROM [facility] LEGE OF CHEST PHYSICIANS:MIGUEL CATION INR VALUEPROPHY LAXIS OF VENOUS THROM BOSIS (ORTHOPEDIC RASHAD OSCAR) 2.0 - 3.0PROPHY LAXIS OF VENOUS THROM BOSIS (OTHER THAN HIG H-RISK SURGERY) 2.0 - 3.0TREATMENT OF DEEP VEIN THROMBOSIS OR PULMONARY EMBOL ISM 2.0 - 3.0PREVENTION OF SYSTEMIC EMBOLI SM TISSUE HEART VA LVES 2.0 - 3.0 ACUTE MYOCARDIAL INFA RCTION (TO PREVENT SYS TEMIC EMBOLISM) 2.0 - 3.0 ACUTE MYOCARDIA L INFARCTION (TO PREVENT RECURRENT INFAR CT) 2.5 - 3.0 VALVULAR HEART DISEASE 2.0 - 3 .0 ATRIAL FIBRILAT ION 2.0 - 3.0BILEAFLET MECHANICAL VALV E IN AORTIC POSITION 2.0 - 3.0MECHANICAL PROSTHETIC VALV ES (HIGH RISK) 2.5 - 3.5PRESENCE OF LUPUS ANTICOAGULANT O R ANTIPHOSPHOLIPI D ANTIBODIES 2.5 - 3.5 ALREADY DONE FOR TODAY 08/21/2022Specimen comments: IF NOT ALREADY DONE WITHIN LAST 24 HOURSTHROMBOPLASTIN TIME [id number] 06:35:00 Test Item Value Reference Range Interpretation Comments THROMBOPLASTIN TIME 42.50 SECONDS 25.86-36.07 [facility] PARTIAL (test code = Therape uti Range - PTT) APTT of 48.8-80 .3 secondscorrelat es with plasma heparin concentration o f 0.2-0.4 u/mL ALREADY DONE FOR TODAY 08/21/2022Specimen comments: IF NOT ALREADY DONE WITHIN LAST 24 HOURSBASIC METABOLIC [id number] 06:33:00 Test Item Value Reference Range Interpretation Comments SODIUM (test code = 133 mmol/l 134.0-147.0 L NA) POTASSIUM (test 4.6 mmol/L 3.6-5.2 N code = K) CHLORIDE (test code 96 mmol/l 98.0-107.0 L = CL) CARBON DIOXIDE 34.3 mmol/l 21.0-33.0 H (test code = CO2) ANION GAP (test 7.3 0-20 N code = GAP) GLUCOSE (test code 160 mg/dl 70.0-110.0 H = GLU) BLOOD UREA NITROGEN 49 mg/dl 7.0-18.0 H (test code = BUN) GLOMERULAR 22 mL/min The Glomerular FILTRATION RATE Filtration R ate is a (test code = GFR) calculated parameterbased on serum Creatinine, pat ient age and sex. GFR va luesless than 60 mL/min/ 1.73 square meters a re indicative ofCh ronic Kidney Disease. Values less than 15 mL/min/1.73squa re meters indicate Kidney failure. The calculation for GFR is based on the CK D-EPI (2020) calculat ion. This formulais race indifferent and is the recommended for christofer for GFRby the [facility] for Ad[facility].The GFR will not calculate if th e sex is unknown or if thepatient's ag e is <18 years. CREATININE (test 3.00 mg/dL 0.60-1.30 H code = CREAT) ESTIMATED CREAT 23 mL/min >30 CLEARANCE (test code = ECRCL) CALCIUM (test code 8.6 mg/dl 8.0-10.5 N = CA) [id number] 06:33:00 Test Item Value Reference Range Interpretation Comments MAGNESIUM (test code = MAG) 2.6 mg/dl 1.8-2.4 H CBC W/AUTO [id number] 06:11:00 Test Item Value Reference Range Interpretation Comments WHITE BLOOD CELL (test code = 7.4 K/mm3 4.5-11.0 N WBC) RED BLOOD CELL (test code = 3.18 M/mm3 4.40-5.90 L RBC) HEMOGLOBIN (test code = HGB) 9.8 gm/dL 13.0-17.0 L HEMATOCRIT (test code = HCT) 31.7 % 36.0-48.0 L MEAN CELL VOLUME (test code = 99.7 UM3 80.0-94.0 H MCV) MEAN CELL HGB (test code = MCH) 30.8 UUG 25.5-32.5 N MEAN CELL HGB CONCETRATION 30.9 gm/dL 29.0-35.5 N (test code = MCHC) RED CELL DISTRIBUTION WIDTH 15.8 % 11.5-15.0 H (test code = RDW) RED CELL DISTRIBUTION WIDTH SD 57.7 fL 34.8-50.2 H (test code = RDW-SD) PLATELET COUNT (test code = 182 K/mm3 150-400 N PLT) MEAN PLATELET VOLUME (test code 9.9 fl 7.4-10.4 N = MPV) NEUTROPHIL % (test code = NT%) 85.0 % 49.0-76.0 H IMMATURE GRANULOCYTE % (test 0.5 % 0.0-0.4 H code = IG%) LYMPHOCYTE % (test code = LY%) 9.3 % 23.0-38.0 L MONOCYTE % (test code = MO%) 5.1 % 1.0-10.0 N EOSINOPHIL % (test code = EO%) 0.0 % 1.0-5.0 L BASOPHIL % (test code = BA%) 0.1 % 0.0-1.0 N NUCLEATED RBC % (test code = 0.0 % 0.0-0.1 N NRBC%) NEUTROPHIL # (test code = NT#) 6.3 K/mm3 2.4-6.3 N IMMATURE GRANULOCYTE # (test 0.04 x10 3/uL 0.00-0.07 N code = IG#) LYMPHOCYTE # (test code = LY#) 0.7 K/mm3 1.2-4.0 L MONOCYTE # (test code = MO#) 0.4 K/mm3 0.0-0.6 N EOSINOPHIL # (test code = EO#) 0.0 K/MM3 0.0-0.7 N BASOPHIL # (test code = BA#) 0.0 K/mm3 0.0-0.2 N NUCLEATED RBC # (test code = 0.00 X10 3uL 0.00-0.01 N NRBC#) ALREADY DONE FOR TODAY 08/21/2022Specimen comments: IF NOT ALREADY DONE WITHIN LAST 24 HOURSTROP-I HIGH [id number] 21:18:00 Test Item Value Reference Range Interpretation Comments TROP-I HIGH [id number] ng/L 0-76 HH CAUTION: Units of the SENSITIVITY (test current TR OPI-HS test code = TROPIHS) methodology( ng/L) differ from the prior test methodolog y (ng/mL) by afac tor of 1000. -------- -------- ---99th Percentile: Fem ales: 0 - 51 ng/L Males : 0 - 76 ng/LThese resul ts were obtained using Dimension EXL TnIHreagent. Re sults from different methodologies s hould not becompared to one another as regino titative results may margot y bymethod. TROP-I HIGH [id number] 19:05:00 Test Item Value Reference Range Interpretation Comments TROP-I HIGH 8381 ng/L 0-76 HH CAUTION: Units of the SENSITIVITY (test current TR OPI-HS test code = TROPIHS) methodology( ng/L) differ from the prior test methodolog y (ng/mL) by afac tor of 1000. -------- -------- ---99th Percentile: Fem ales: 0 - 51 ng/L Males : 0 - 76 ng/LThese resul ts were obtained using Dimension EXL TnIHreagent. Re sults from different methodologies s hould not becompared to one another as regino titative results may margot y bymethod. B-TYPE NATRIURETIC [id number] 16:50:00 Test Item Value Reference Range Interpretation Comments B-TYPE NATRIURETIC PEPTIDE (test 4840 PG/ML 5-100 H code = BNP) TROP-I HIGH [id number] 16:50:00 Test Item Value Reference Range Interpretation Comments TROP-I HIGH 8390 ng/L 0-76 HH CAUTION: Units of the SENSITIVITY (test current TR OPI-HS test code = TROPIHS) methodology( ng/L) differ from the prior test methodolog y (ng/mL) by afac tor of 1000. -------- -------- ---99th Percentile: Fem ales: 0 - 51 ng/L Males : 0 - 76 ng/LThese resul ts were obtained using Ward[employer] EXMove Loot TnIHreagent. Re sults from different methodologies s hould not becompared to one another as regino titative results may margot y bymethod. LIPOPROTEIN [id number] 16:50:00 Test Item Value Reference Range Interpretation Comments LIPOPROTEIN LDL (test code = LDL) 90 mg/dl 70-130 N BASIC METABOLIC [id number] 16:50:00 Test Item Value Reference Range Interpretation Comments SODIUM (test code = 131 mmol/l 134.0-147.0 L NA) POTASSIUM (test 5.2 mmol/L 3.6-5.2 N IS SAMPLE HE MOLYSED? code = K) YESPLASMA HAS S L HEMOLYSIS CHLORIDE (test code 96 mmol/l 98.0-107.0 L = CL) CARBON DIOXIDE 35.0 mmol/l 21.0-33.0 H (test code = CO2) ANION GAP (test 5.2 0-20 N code = GAP) GLUCOSE (test code 146 mg/dl 70.0-110.0 H = GLU) BLOOD UREA NITROGEN 52 mg/dl 7.0-18.0 H (test code = BUN) GLOMERULAR 21 mL/min The Glomerular FILTRATION RATE Filtration R ate is a (test code = GFR) calculated parameterbased on serum Creatinine, pat ient age and sex. GFR va luesless than 60 mL/min/ 1.73 square meters a re indicative ofCh ronic Kidney Disease. Values less than 15 mL/min/1.73squa re meters indicate Kidney failure. The calculation for GFR is based on the CK D-EPI (2020) calculat ion. This formulais race indifferent and is the recommended for christofer for GFRby the [facility] on for Adults.The GFR will not calculate if th e sex is unknown or if thepatient's ag e is <18 years. CREATININE (test 3.07 mg/dL 0.60-1.30 H code = CREAT) CALCIUM (test code 9.0 mg/dl 8.0-10.5 N = CA) ESTIMATED CREAT 23 mL/min >30 CLEARANCE (test code = ECRCL) [id number] 16:39:00 Test Item Value Reference Range Interpretation Comments MAGNESIUM (test code = MAG) 2.2 mg/dl 1.8-2.4 N LACTIC [id number] 16:33:00 Test Item Value Reference Range Interpretation Comments LACTIC ACID (test code = LACT) 1.2 mmol/L 0.4-2.0 N PROTHROMBIN [id number] 16:13:00 Test Item Value Reference Range Interpretation Comments PROTHROMBIN TIME 10.6 SECONDS 9.9-12.8 N PATIENT (test code = PTP) INTERNATIONAL NORMAL 1.0 0.89-1.14 N THE INR IS TO BE USED RATIO (test code = ONLY FOR MONITORING INR) ORAL ANTICOAGULANTTH ERAPY. THE FOLLOWING A RE SUGGESTED RANGE S FROM [facility] LE[facility]ICIANS:MIGUEL CATION INR VALUEPROPHY LAXIS OF VENOUS THROM BOSIS (ORTHOPEDIC RASHAD OSCAR) 2.0 - 3.0PROPHY LAXIS OF VENOUS THROM BOSIS (OTHER THAN HIG H-RISK SURGERY) 2.0 - 3.0TREATMENT OF DEEP VEIN THROMBOSIS OR PULMONARY EMBOL ISM 2.0 - 3.0PREVENTION OF SYSTEMIC EMBOLI SM TISSUE HEART VA LVES 2.0 - 3.0 ACUTE MYOCARDIAL INFA RCTION (TO PREVENT SYS TEMIC EMBOLISM) 2.0 - 3.0 ACUTE MYOCARDIA L INFARCTION (TO PREVENT RECURRENT INFAR CT) 2.5 - 3.0 VALVULAR HEART DISEASE 2.0 - 3 .0 ATRIAL FIBRILAT ION 2.0 - 3.0BILEAFLET MECHANICAL VALV E IN AORTIC POSITION 2.0 - 3.0MECHANICAL PROSTHETIC VALV ES (HIGH RISK) 2.5 - 3.5PRESENCE OF LUPUS ANTICOAGULANT O R ANTIPHOSPHOLIPI D ANTIBODIES 2.5 - 3.5 Specimen comments: .THROMBOPLASTIN TIME [id number] 16:13:00 Test Item Value Reference Range Interpretation Comments THROMBOPLASTIN TIME 28.00 SECONDS 25.86-36.07 N [facility] PARTIAL (test code = Therape utic Range - PTT) APTT of 48.8-80 .3 secondscorrelat es with plasma heparin concentration o f 0.2-0.4 u/mL Specimen comments: .CBC W/AUTO [id number] 16:05:00 Test Item Value Reference Range Interpretation Comments WHITE BLOOD CELL (test code = 8.1 K/mm3 4.5-11.0 N WBC) RED BLOOD CELL (test code = 3.09 M/mm3 4.40-5.90 L RBC) HEMOGLOBIN (test code = HGB) 9.6 gm/dL 13.0-17.0 L HEMATOCRIT (test code = HCT) 29.6 % 36.0-48.0 L MEAN CELL VOLUME (test code = 95.8 UM3 80.0-94.0 H MCV) MEAN CELL HGB (test code = MCH) 31.1 UUG 25.5-32.5 N MEAN CELL HGB CONCETRATION 32.4 gm/dL 29.0-35.5 N (test code = MCHC) RED CELL DISTRIBUTION WIDTH 15.8 % 11.5-15.0 H (test code = RDW) RED CELL DISTRIBUTION WIDTH SD 54.8 fL 34.8-50.2 H (test code = RDW-SD) PLATELET COUNT (test code = 191 K/mm3 150-400 N PLT) MEAN PLATELET VOLUME (test code 9.8 fl 7.4-10.4 N = MPV) NEUTROPHIL % (test code = NT%) 75.6 % 49.0-76.0 N IMMATURE GRANULOCYTE % (test 0.5 % 0.0-0.4 H code = IG%) LYMPHOCYTE % (test code = LY%) 16.5 % 23.0-38.0 L MONOCYTE % (test code = MO%) 6.3 % 1.0-10.0 N EOSINOPHIL % (test code = EO%) 0.5 % 1.0-5.0 L BASOPHIL % (test code = BA%) 0.6 % 0.0-1.0 N NUCLEATED RBC % (test code = 0.0 % 0.0-0.1 N NRBC%) NEUTROPHIL # (test code = NT#) 6.1 K/mm3 2.4-6.3 N IMMATURE GRANULOCYTE # (test 0.04 x10 3/uL 0.00-0.07 N code = IG#) LYMPHOCYTE # (test code = LY#) 1.3 K/mm3 1.2-4.0 N MONOCYTE # (test code = MO#) 0.5 K/mm3 0.0-0.6 N EOSINOPHIL # (test code = EO#) 0.0 K/MM3 0.0-0.7 N BASOPHIL # (test code = BA#) 0.1 K/mm3 0.0-0.2 N NUCLEATED RBC # (test code = 0.00 X10 3uL 0.00-0.01 N NRBC#) - XR CHEST 1 [id number] 15:57:00 [facility] 1950 Sex: M FAX: Sara Santacruz DO [place]: RAMU St: REG Name: RICKI MCCLAIN [facility] : 1950 Age/S: 72/M [address] [facility] Unit #: [id number] Loc: E.ERS2 [place], [place] Phys: [place] [id number] Acct: [id number] Dis Date: Status: REG ER PHONE #: [phone] Exam Date: 08/21/2022 1555 FAX #: [phone] Reason: Chest Pain EXAMS: CPT CODE: [id number] XR CHEST 1 V 88869 EXAMINATION: - XR CHEST 1 V Location: [id number] INDICATION: Male, 72 years year old with Chest Pain COMPARISON: 07/23/2014 FINDINGS: Single view(s) of the chest submitted. Support Devices: None. Heart/Mediastinum: Cardiac silhouette is stable in size. Mediastinal contours are normal. Lungs/Pleura: There is mild prominence of the central pulmonary vasculature and interstitium. There is no lobar consolidation or effusion. Patchy airspace disease in the lower lobes bilaterally. Small left effusion suspected. Bones: Degenerative changes are present in the thoracic spine. IMPRESSION: Mild congestion with patchy bilateral lower lobe airspace di sease and likely small left effusion. at 1557 Reported and signed by: Boo Wagoner M.D. CC: Sara Santacruz DO Technologist: BRIANNA JENKINS [facility] Date/Time/By: 08/21/2022 (5666) : By: [email or web address] PAGE 1 Signed Report FAX: Sara Woodard DO [place]: St: REG -------- Name: RICKI MCCLAIN [facility] : 1950 Age/S: 72/M [address] [facility] Unit #: [id number] Loc: E.ERS2 [place], [place]: [place] [id number] Acct: [id number] Dis Date: Status: REG ER PHONE #: [phone] Exam Date: 08/21/2022 1555 FAX #: [phone] Reason: Chest Pain EXAMS: CPT CODE: [id number] XR CHEST 1 V 49517 (Continued) Orig Print D/T: S: 08/21/2022 (1600) PAGE 2 Signed ReportCARDIAC [id number] 21:03:00 Test Item Value Reference Range Interpretation Comments Troponin-I (test code no gt See_Comment [Auto mated message] The = Troponin-I) system which g enerated this result transmit todd reference range : <=0.40. The reference r carolynn was not used to interpr et this result as kimberli l/abnormal. [facility] DallasCARCubeit.fmAC [id number] 21:03:00 Test Item Value Reference Range Interpretation Comments BNP (test code = BNP) 75 [facility] PearlandBreadcrumbtrackingCHEM [id number] 21:03:00 Test Item Value Reference Range Interpretation Comments Lipase Lvl (test code = Lipase Lvl) 130 73-393 [facility] PearlandDgoplerDFYSPPLMEZRS6510-85-37 21:03:00 Test Item Value Reference Range Interpretation Comments AGAP (test code = AGAP) 12.6 10.0-20.0 [facility] Pearland[id number] 21:03:00 Test Item Value Reference Range Interpretation Comments B/C Ratio (test code = B/C Ratio) 16 1 6-25 [facility] PearlandDczutimRXRZCOQLMFHW9091-86-75 21:03:00 Test Item Value Reference Range Interpretation Comments Globulin (test code = Globulin) 3.8 2.7-4.2 [facility] Pearl[id number] 21:03:00 Test Item Value Reference Range Interpretation Comments A/G Ratio (test code = A/G Ratio) 0.9 1 0.7-1.6 [facility] PearlandXpuyvnkRWSUBAWMRKTO3270-11-94 21:03:00 Test Item Value Reference Range Interpretation Comments Glucose Lvl (test code = Glucose Lvl) 177 70-99 [facility] PearlandGxntrpxOSDSGQZYUMSR7586-26-51 21:03:00 Test Item Value Reference Range Interpretation Comments BUN (test code = BUN) 35 7-22 [facility] PearlandOicnwcbHDQKXWGYSHUV6486-66-81 21:03:00 Test Item Value Reference Range Interpretation Comments Creatinine Lvl (test code = Creatinine 2.24 0.50-1.40 Lvl) [facility]BsgelvvIZLAGFAIZDUF9085-94-62 21:03:00 Test Item Value Reference Range Interpretation Comments Sodium Lvl (test code = Sodium Lvl) 139 135-145 [facility] HospitalQmcvnlhKXWFJBUYTWKI4041-04-88 21:03:00 Test Item Value Reference Range Interpretation Comments Potassium Lvl (test code = Potassium 4.6 3.5-5.1 Lvl) [facility] HospitalOutqyhfQHFDHXSYCVRL0026-82-71 21:03:00 Test Item Value Reference Range Interpretation Comments Chloride Lvl (test code = Chloride Lvl) 105 95-109 [facility] HospitalZpnlsbfIZRYFRSIRYRE2475-18-25 21:03:00 Test Item Value Reference Range Interpretation Comments CO2 (test code = CO2) 26 24-32 [facility] HospitalTacbnuoUMDVLNWXABEV3246-56-02 21:03:00 Test Item Value Reference Range Interpretation Comments Calcium Lvl (test code = Calcium Lvl) 9.5 8.5-10.5 [facility] HospitalLlvtiheKAFCCAFGJNLJ4375-24-72 21:03:00 Test Item Value Reference Range Interpretation Comments Total Protein (test code = Total 7.2 6.4-8.4 Protein) [facility] HospitalRpsrberACWQNLOEHISL4932-09-46 21:03:00 Test Item Value Reference Range Interpretation Comments Albumin Lvl (test code = Albumin Lvl) 3.4 3.5-5.0 [facility] HospitalHmlvwowBQBRPIFGATRL9828-95-39 21:03:00 Test Item Value Reference Range Interpretation Comments ALT (test code = ALT) 28 See_Comment [Auto mated message] The system which ge nerated this result transmit todd reference range : <=65. The reference range was not used to interpr et this result as kimberli l/abnormal. [facility] HospitalMdycxuxGMPFQDFLUVSS9566-37-78 21:03:00 Test Item Value Reference Range Interpretation Comments AST (test code = AST) 22 See_Comment [Auto mated message] The system which ge nerated this result transmit todd reference range : <=37. The reference range was not used to interpr et this result as kimberli l/abnormal. [facility] HospitalZcxyqwsIVGQYXKGDDGX8684-24-29 21:03:00 Test Item Value Reference Range Interpretation Comments Alk Phos (test code = Alk Phos) 82 39-136 [facility] HospitalUiryropDEUUEXOCIWZT8272-25-33 21:03:00 Test Item Value Reference Range Interpretation Comments Bili Total (test code = Bili Total) 0.4 0.2-1.3 [facility] HospitalVvnaliyKMFWOKKCQMUX1757-26-65 21:03:00 Test Item Value Reference Range Interpretation Comments eGFR (test code = eGFR) 29 [facility] SystemDzbwesqHIIKCCRVKU3231-44-48 21:03:00 Test Item Value Reference Range Interpretation Comments WBC (test code = WBC) 11.0 3.7-10.4 [facility] SystemUyngqliJDENQOGNSR5967-69-25 21:03:00 Test Item Value Reference Range Interpretation Comments RBC (test code = RBC) 4.22 4.70-6.10 [facility] SystemKngapnuAGCADXTMIJ7592-77-72 21:03:00 Test Item Value Reference Range Interpretation Comments Hgb (test code = Hgb) 13.4 14.0-18.0 [facility] SystemUagtdipOICAZVQXJC5795-45-02 21:03:00 Test Item Value Reference Range Interpretation Comments Hct (test code = Hct) 40.2 42.0-54.0 [facility] SystemKhenpluRZRZJJELDN2154-45-89 21:03:00 Test Item Value Reference Range Interpretation Comments MCV (test code = MCV) 95.2 80.0-94.0 [facility] SystemFrilfpeASMYUAPDVX6823-88-89 21:03:00 Test Item Value Reference Range Interpretation Comments MCH (test code = MCH) 31.7 pg 27.0-31.0 [facility] SystemTpzvzdzSJYJREVDQV7192-65-41 21:03:00 Test Item Value Reference Range Interpretation Comments MCHC (test code = MCHC) 33.3 32.0-36.0 [facility] SystemQkiwsajOQDLGYJPZA9373-32-59 21:03:00 Test Item Value Reference Range Interpretation Comments RDW (test code = RDW) 14.3 11.5-14.5 [facility] SystemKqyzsmaYNDUMXCBIL8560-11-28 21:03:00 Test Item Value Reference Range Interpretation Comments Platelet (test code = Platelet) 286 133-450 [facility] SystemIsdpcocQDPFHNMCDD6668-61-60 21:03:00 Test Item Value Reference Range Interpretation Comments MPV (test code = MPV) 8.5 7.4-10.4 [facility] SystemKlqmtegFWRCSFDZQR1322-18-47 21:03:00 Test Item Value Reference Range Interpretation Comments Segs (test code = Segs) 91.9 45.0-75.0 [facility] SystemBuxbcigCCSYMPIFGR3488-84-43 21:03:00 Test Item Value Reference Range Interpretation Comments Lymphocytes (test code = Lymphocytes) 5.0 20.0-40.0 [facility] SystemHmeopngSADNTQWFQA4186-74-43 21:03:00 Test Item Value Reference Range Interpretation Comments Monocytes (test code = Monocytes) 2.4 2.0-12.0 [facility] SystemHnncotgPTWAHWVIBC0934-22-49 21:03:00 Test Item Value Reference Range Interpretation Comments Basophils (test code = 0.7 See_Comment [Aut omated message] The Basophils) system which ge nerated this result tra nsmitted reference range : <=1.0. The reference r carolynn was not used to int erpret this result as normal/abnormal . [facility] SystemQkljhfqJPJXEZLTOC9643-74-50 21:03:00 Test Item Value Reference Range Interpretation Comments Neutrophils # (test code = Neutrophils 10.1 1.5-8.1 #) [facility] SystemOhovxxdAKHNOLMGBZ3949-91-45 21:03:00 Test Item Value Reference Range Interpretation Comments Lymphocytes # (test code = Lymphocytes 0.5 1.0-5.5 #) [facility] SystemTrhpodbDXRZARERFL3167-14-21 21:03:00 Test Item Value Reference Range Interpretation Comments Monocytes # (test code 0.3 See_Comment [Aut omated message] The = Monocytes #) system which generated this result tra nsmitted reference range : <=0.8. The reference r carolynn was not used to int erpret this result as normal/abnormal . [facility] SystemOujqpiuVXRIZDZYTK0060-92-93 21:03:00 Test Item Value Reference Range Interpretation Comments Basophils # (test code 0.1 See_Comment [Aut omated message] The = Basophils #) system which generated this result tra nsmitted reference range : <=0.2. The reference r carolynn was not used to int erpret this result as normal/abnormal . [facility] DallasCARDIAC ONUPCLG7986-45-17 21:03:00 Test Item Value Reference Range Interpretation Comments Troponin-I (test code no gt See_Comment [Auto mated message] The = Troponin-I) system which g enerated this result transmit todd reference range : <=0.40. The reference r carolynn was not used to interpr et this result as kimberli l/abnormal. [facility] DallasCARDIAC TKYDSYN4044-83-29 21:03:00 Test Item Value Reference Range Interpretation Comments BNP (test code = BNP) 75 [facility] DallasCHEM BYMTL2310-45-32 21:03:00 Test Item Value Reference Range Interpretation Comments Lipase Lvl (test code = Lipase Lvl) 130 73-393 [facility] PasoWfpfhiiKCTCDWRNTVNP5138-86-58 21:03:00 Test Item Value Reference Range Interpretation Comments AGAP (test code = AGAP) 12.6 10.0-20.0 [facility] HospitalVkrcfjyUJYGPISHYQQF6954-44-75 21:03:00 Test Item Value Reference Range Interpretation Comments B/C Ratio (test code = B/C Ratio) 16 1 6-25 [facility] HospitalGtdgtpjIDSUZZBVZNOC7207-51-64 21:03:00 Test Item Value Reference Range Interpretation Comments Globulin (test code = Globulin) 3.8 2.7-4.2 [facility] HospitalBsfhpwuMBZRCZPCVJFN5644-64-23 21:03:00 Test Item Value Reference Range Interpretation Comments A/G Ratio (test code = A/G Ratio) 0.9 1 0.7-1.6 [facility] HospitalXesjsdvQVMEEBCFCHGD3627-11-73 21:03:00 Test Item Value Reference Range Interpretation Comments Glucose Lvl (test code = Glucose Lvl) 177 70-99 [facility] HospitalZlpskmyRWHMKJDNGUSN3548-95-79 21:03:00 Test Item Value Reference Range Interpretation Comments BUN (test code = BUN) 35 7-22 [facility] HospitalRasrddvROSWFSPVBUBQ2939-58-25 21:03:00 Test Item Value Reference Range Interpretation Comments Creatinine Lvl (test code = Creatinine 2.24 0.50-1.40 Lvl) [facility] HospitalPfiioobCTRJLKVFFZND3706-34-25 21:03:00 Test Item Value Reference Range Interpretation Comments Sodium Lvl (test code = Sodium Lvl) 139 135-145 [facility] HospitalVrrlukcWSSHCIJRNSMV1630-68-01 21:03:00 Test Item Value Reference Range Interpretation Comments Potassium Lvl (test code = Potassium 4.6 3.5-5.1 Lvl) [facility] HospitalJxnpfeeNVPUAQYMJTIF3048-17-54 21:03:00 Test Item Value Reference Range Interpretation Comments Chloride Lvl (test code = Chloride Lvl) 105 95-109 [facility] HospitalKpvpuknQJZNQBCVWQBO6991-38-40 21:03:00 Test Item Value Reference Range Interpretation Comments CO2 (test code = CO2) 26 24-32 [facility] HospitalVlugsawFQIOEUSJOZSG8861-94-74 21:03:00 Test Item Value Reference Range Interpretation Comments Calcium Lvl (test code = Calcium Lvl) 9.5 8.5-10.5 [facility] HospitalKahjbckJZFDHMQSYCQI3988-55-62 21:03:00 Test Item Value Reference Range Interpretation Comments Total Protein (test code = Total 7.2 6.4-8.4 Protein) [facility] HospitalTdqqzisOGONDPNCMXAI8993-96-64 21:03:00 Test Item Value Reference Range Interpretation Comments Albumin Lvl (test code = Albumin Lvl) 3.4 3.5-5.0 [facility] HospitalRovlfmmZKTBJTJZWYZI0378-55-96 21:03:00 Test Item Value Reference Range Interpretation Comments ALT (test code = ALT) 28 See_Comment [Auto mated message] The system which ge nerated this result transmit todd reference range : <=65. The reference range was not used to interpr et this result as kimberli l/abnormal. [facility] HospitalEnktnnuWGSNXJVUWSAE9428-08-65 21:03:00 Test Item Value Reference Range Interpretation Comments AST (test code = AST) 22 See_Comment [Auto mated message] The system which ge nerated this result transmit todd reference range : <=37. The reference range was not used to interpr et this result as kimberli l/abnormal. [facility] HospitalNokhbilBGEGCWEBAYKQ0420-76-54 21:03:00 Test Item Value Reference Range Interpretation Comments Alk Phos (test code = Alk Phos) 82 39-136 [facility] HospitalRjmjqlfXLUAVCCVXHNP5965-66-08 21:03:00 Test Item Value Reference Range Interpretation Comments Bili Total (test code = Bili Total) 0.4 0.2-1.3 [facility] HospitalWbnyndhVXGQOANPOMSC9109-45-22 21:03:00 Test Item Value Reference Range Interpretation Comments eGFR (test code = eGFR) 29 [facility] SystemWftdzggSUWCBTYPXH3796-42-17 21:03:00 Test Item Value Reference Range Interpretation Comments WBC (test code = WBC) 11.0 3.7-10.4 [facility] SystemUadktpjIXUKBDRPIQ7180-03-16 21:03:00 Test Item Value Reference Range Interpretation Comments RBC (test code = RBC) 4.22 4.70-6.10 [facility] SystemHvqjjqtLTALNBKFQX2969-06-55 21:03:00 Test Item Value Reference Range Interpretation Comments Hgb (test code = Hgb) 13.4 14.0-18.0 [facility] SystemEebjpfvLUGAKWQRHK8329-31-14 21:03:00 Test Item Value Reference Range Interpretation Comments Hct (test code = Hct) 40.2 42.0-54.0 [facility] SystemBcteyksESHYMEHMBA4075-82-50 21:03:00 Test Item Value Reference Range Interpretation Comments MCV (test code = MCV) 95.2 80.0-94.0 [facility] SystemXcpcdrkUIHKEJRSYV0928-33-21 21:03:00 Test Item Value Reference Range Interpretation Comments MCH (test code = MCH) 31.7 pg 27.0-31.0 [facility] SystemDsstbitDRWXDZMHQQ0960-86-31 21:03:00 Test Item Value Reference Range Interpretation Comments MCHC (test code = MCHC) 33.3 32.0-36.0 [facility] SystemRtoohpbFSXACEYZXO8688-18-09 21:03:00 Test Item Value Reference Range Interpretation Comments RDW (test code = RDW) 14.3 11.5-14.5 [facility] SystemQymslwmBFAYHJIXFJ0089-89-92 21:03:00 Test Item Value Reference Range Interpretation Comments Platelet (test code = Platelet) 286 133-450 [facility] SystemEpuirvcOVSXQAHOMO0644-35-15 21:03:00 Test Item Value Reference Range Interpretation Comments MPV (test code = MPV) 8.5 7.4-10.4 [facility] SystemKazmcreVNXORLPGUG0596-83-34 21:03:00 Test Item Value Reference Range Interpretation Comments Segs (test code = Segs) 91.9 45.0-75.0 [facility] SystemAewlpmqQTVDGIALSE6260-41-24 21:03:00 Test Item Value Reference Range Interpretation Comments Lymphocytes (test code = Lymphocytes) 5.0 20.0-40.0 [facility] SystemIguywtvZVKPMGEHNS2296-62-60 21:03:00 Test Item Value Reference Range Interpretation Comments Monocytes (test code = Monocytes) 2.4 2.0-12.0 [facility] SystemYcemkrrPMTQBDIVOK7772-84-84 21:03:00 Test Item Value Reference Range Interpretation Comments Basophils (test code = 0.7 See_Comment [Aut omated message] The Basophils) system which ge nerated this result tra nsmitted reference range : <=1.0. The reference r carolynn was not used to int erpret this result as normal/abnormal . [facility] SaultYtbtyjnKQKOVJYMSO9115-69-21 21:03:00 Test Item Value Reference Range Interpretation Comments Neutrophils # (test code = Neutrophils 10.1 1.5-8.1 #) [facility] SaultLvcoyrxQKZACHORUE3465-25-47 21:03:00 Test Item Value Reference Range Interpretation Comments Lymphocytes # (test code = Lymphocytes 0.5 1.0-5.5 #) [facility] SaultXwdsvujEMMXAVCGGJ9768-39-71 21:03:00 Test Item Value Reference Range Interpretation Comments Monocytes # (test code 0.3 See_Comment [Aut omated message] The = Monocytes #) system which generated this result tra nsmitted reference range : <=0.8. The reference r carolynn was not used to int erpret this result as normal/abnormal . [facility] SaultHlkaggnFETJNHCMLV2164-69-25 21:03:00 Test Item Value Reference Range Interpretation Comments Basophils # (test code 0.1 See_Comment [Aut omated message] The = Basophils #) system which generated this result tra nsmitted reference range : <=0.2. The reference r carolynn was not used to int erpret this result as normal/abnormal . [facility] DallasThe [facility]NEW [facility] SAXXPOV4908-84-02 21:03:00 Test Item Value Reference Range Interpretation Comments Troponin-I (test code no gt See_Comment [Auto mated message] The = Troponin-I) system which g enerated this result transmit todd reference range : <=0.40. The reference r carolynn was not used to interpr et this result as kimberli l/abnormal. [facility] DallasCARDIAC MZQVNNL1941-41-90 21:03:00 Test Item Value Reference Range Interpretation Comments BNP (test code = BNP) 75 [facility] DallasCHEM FAQCL4142-62-35 21:03:00 Test Item Value Reference Range Interpretation Comments Lipase Lvl (test code = Lipase Lvl) 130 73-393 [facility] [place]XdnejriNVWVVVACUILG5252-36-88 21:03:00 Test Item Value Reference Range Interpretation Comments AGAP (test code = AGAP) 12.6 10.0-20.0 [facility]NsvihwgOHGZREPGPSRP6169-46-09 21:03:00 Test Item Value Reference Range Interpretation Comments B/C Ratio (test code = B/C Ratio) 16 1 6-25 [facility] HospitalLxvpgxdRBUUDVRBDXVD1264-70-86 21:03:00 Test Item Value Reference Range Interpretation Comments Globulin (test code = Globulin) 3.8 2.7-4.2 [facility] HospitalSjydtrhLGDQNRKCRPWN9929-06-65 21:03:00 Test Item Value Reference Range Interpretation Comments A/G Ratio (test code = A/G Ratio) 0.9 1 0.7-1.6 [facility] HospitalYsrtsmrZAIRLSUDPWNV9630-14-00 21:03:00 Test Item Value Reference Range Interpretation Comments Glucose Lvl (test code = Glucose Lvl) 177 70-99 [facility] HospitalPcpjjjhHMQPRBHRPPZQ7856-36-24 21:03:00 Test Item Value Reference Range Interpretation Comments BUN (test code = BUN) 35 7-22 [facility] HospitalBampdziQXAFTQBPZNRI6211-77-32 21:03:00 Test Item Value Reference Range Interpretation Comments Creatinine Lvl (test code = Creatinine 2.24 0.50-1.40 Lvl) [facility] HospitalNuorakpEQNKMPMRVEWV3397-42-06 21:03:00 Test Item Value Reference Range Interpretation Comments Sodium Lvl (test code = Sodium Lvl) 139 135-145 [facility] HospitalDexhbfkLYMKARIJJGNR4657-94-26 21:03:00 Test Item Value Reference Range Interpretation Comments Potassium Lvl (test code = Potassium 4.6 3.5-5.1 Lvl) [facility] HospitalEabtrtmAREBLLSEXZOJ3544-51-49 21:03:00 Test Item Value Reference Range Interpretation Comments Chloride Lvl (test code = Chloride Lvl) 105 95-109 [facility] HospitalPlijkctSVCCUHSWLTJX5416-21-63 21:03:00 Test Item Value Reference Range Interpretation Comments CO2 (test code = CO2) 26 24-32 [facility] HospitalHaawdjlZFHIBZFLHSNV3299-21-00 21:03:00 Test Item Value Reference Range Interpretation Comments Calcium Lvl (test code = Calcium Lvl) 9.5 8.5-10.5 [facility] HospitalUddothvSKSIHROEQHVM3801-86-25 21:03:00 Test Item Value Reference Range Interpretation Comments Total Protein (test code = Total 7.2 6.4-8.4 Protein) [facility] HospitalDbhembsCLJZVBMNEHOP2967-93-17 21:03:00 Test Item Value Reference Range Interpretation Comments Albumin Lvl (test code = Albumin Lvl) 3.4 3.5-5.0 [facility] HospitalSrnfzymDXGRDCCRYDON3022-39-62 21:03:00 Test Item Value Reference Range Interpretation Comments ALT (test code = ALT) 28 See_Comment [Auto mated message] The system which ge nerated this result transmit todd reference range : <=65. The reference range was not used to interpr et this result as kimberli l/abnormal. [facility] HospitalPjegbafKPIKCXRWDCZT6070-86-80 21:03:00 Test Item Value Reference Range Interpretation Comments AST (test code = AST) 22 See_Comment [Auto mated message] The system which ge nerated this result transmit todd reference range : <=37. The reference range was not used to interpr et this result as kimberli l/abnormal. [facility] HospitalJhociztKBYUEZGSCKZY1562-09-29 21:03:00 Test Item Value Reference Range Interpretation Comments Alk Phos (test code = Alk Phos) 82 39-136 [facility] HospitalPixmcxvLKLBOOTCNSAC2000-30-70 21:03:00 Test Item Value Reference Range Interpretation Comments Bili Total (test code = Bili Total) 0.4 0.2-1.3 [facility] HospitalEpajwsvUSHPUTUZAVYR5062-47-21 21:03:00 Test Item Value Reference Range Interpretation Comments eGFR (test code = eGFR) 29 [facility] SystemRgxehgsJDXRETOKKP6744-91-71 21:03:00 Test Item Value Reference Range Interpretation Comments WBC (test code = WBC) 11.0 3.7-10.4 [facility] SystemIqzgjvmYJNQIEAENF8921-00-83 21:03:00 Test Item Value Reference Range Interpretation Comments RBC (test code = RBC) 4.22 4.70-6.10 [facility] SystemPetzescQDJHEBMWFN3038-39-09 21:03:00 Test Item Value Reference Range Interpretation Comments Hgb (test code = Hgb) 13.4 14.0-18.0 [facility] SystemKfxmiukETYPBLWYDN3625-70-18 21:03:00 Test Item Value Reference Range Interpretation Comments Hct (test code = Hct) 40.2 42.0-54.0 [facility] SystemMnhfwgsCXQMSAMFTM6848-86-33 21:03:00 Test Item Value Reference Range Interpretation Comments MCV (test code = MCV) 95.2 80.0-94.0 [facility] SystemEogqvbpWHFSOLYVDJ8402-11-38 21:03:00 Test Item Value Reference Range Interpretation Comments MCH (test code = MCH) 31.7 pg 27.0-31.0 [facility] SystemBjtlxonKQUBVIVFPQ3996-04-75 21:03:00 Test Item Value Reference Range Interpretation Comments MCHC (test code = MCHC) 33.3 32.0-36.0 [facility] SystemNwadrdvIHSGWPEAQC7255-15-33 21:03:00 Test Item Value Reference Range Interpretation Comments RDW (test code = RDW) 14.3 11.5-14.5 [facility] SystemNceqyboOEHGLFPAJC7359-85-40 21:03:00 Test Item Value Reference Range Interpretation Comments Platelet (test code = Platelet) 286 133-450 [facility] SystemXfrnycrKFILNTNTNX4889-42-29 21:03:00 Test Item Value Reference Range Interpretation Comments MPV (test code = MPV) 8.5 7.4-10.4 [facility] SystemClzaocgZQHUOAKWIB8695-62-96 21:03:00 Test Item Value Reference Range Interpretation Comments Segs (test code = Segs) 91.9 45.0-75.0 [facility] SystemMhybsigYAMYCQKWNN3408-85-03 21:03:00 Test Item Value Reference Range Interpretation Comments Lymphocytes (test code = Lymphocytes) 5.0 20.0-40.0 [facility] SystemMfdnufuYUUGMFHHOL7414-39-07 21:03:00 Test Item Value Reference Range Interpretation Comments Monocytes (test code = Monocytes) 2.4 2.0-12.0 [facility] SystemSfbefzfENSHXHFYSO0048-74-85 21:03:00 Test Item Value Reference Range Interpretation Comments Basophils (test code = 0.7 See_Comment [Aut omated message] The Basophils) system which ge nerated this result tra nsmitted reference range : <=1.0. The reference r carolynn was not used to int erpret this result as normal/abnormal . [facility] SystemKxeuyctWYQINSDGJN7022-82-49 21:03:00 Test Item Value Reference Range Interpretation Comments Neutrophils # (test code = Neutrophils 10.1 1.5-8.1 #) [facility] SystemOammdzkVOPIOKAMDG4965-98-54 21:03:00 Test Item Value Reference Range Interpretation Comments Lymphocytes # (test code = Lymphocytes 0.5 1.0-5.5 #) [facility] SystemHdgpjxfEKMVYOKZOM4060-99-89 21:03:00 Test Item Value Reference Range Interpretation Comments Monocytes # (test code 0.3 See_Comment [Aut omated message] The = Monocytes #) system which generated this result tra nsmitted reference range : <=0.8. The reference r carolynn was not used to int erpret this result as normal/abnormal . [facility] DallasUzwyeozFNPZVRJEKA2099-44-22 21:03:00 Test Item Value Reference Range Interpretation Comments Basophils # (test code 0.1 See_Comment [Aut omated message] The = Basophils #) system which generated this result tra nsmitted reference range : <=0.2. The reference r carolynn was not used to int erpret this result as normal/abnormal . [facility] DallasIDES Technologies BXPHHZO1924-09-33 21:03:00 Test Item Value Reference Range Interpretation Comments Troponin-I (test code no gt See_Comment [Auto mated message] The = Troponin-I) system which g enerated this result transmit todd reference range : <=0.40. The reference r carolynn was not used to interpr et this result as kimberli l/abnormal. [facility]Digiscend RITEZML4800-36-26 21:03:00 Test Item Value Reference Range Interpretation Comments BNP (test code = BNP) 75 [facility] ZLSLF3304-99-60 21:03:00 Test Item Value Reference Range Interpretation Comments Lipase Lvl (test code = Lipase Lvl) 130 73-393 [facility]AunguxbSWDCGAVWGDKF5302-27-75 21:03:00 Test Item Value Reference Range Interpretation Comments AGAP (test code = AGAP) 12.6 10.0-20.0 [facility] [place]landDtpwrbfJDCYGZKNBBIG6921-17-43 21:03:00 Test Item Value Reference Range Interpretation Comments B/C Ratio (test code = B/C Ratio) 16 1 6-25 [facility] PearlandRvnalgjTOVFWAGSZIAS6611-58-29 21:03:00 Test Item Value Reference Range Interpretation Comments Globulin (test code = Globulin) 3.8 2.7-4.2 [facility] PearlandTanwoqmPWZXCAWWGJTS0696-84-60 21:03:00 Test Item Value Reference Range Interpretation Comments A/G Ratio (test code = A/G Ratio) 0.9 1 0.7-1.6 [facility] PearlandObqssvmCAIWGVAJULLT1494-60-37 21:03:00 Test Item Value Reference Range Interpretation Comments Glucose Lvl (test code = Glucose Lvl) 177 70-99 [facility]PpvhxniKRJDKXLGQLCZ8335-65-12 21:03:00 Test Item Value Reference Range Interpretation Comments BUN (test code = BUN) 35 7-22 [facility] HospitalWgmbsynKXRQQHCZJJIR4518-87-98 21:03:00 Test Item Value Reference Range Interpretation Comments Creatinine Lvl (test code = Creatinine 2.24 0.50-1.40 Lvl) [facility] HospitalUhmhbpyMQXCRBETPIIP7771-83-96 21:03:00 Test Item Value Reference Range Interpretation Comments Sodium Lvl (test code = Sodium Lvl) 139 135-145 [facility] HospitalUzptxfeRMOEHOUZNOZV4621-73-97 21:03:00 Test Item Value Reference Range Interpretation Comments Potassium Lvl (test code = Potassium 4.6 3.5-5.1 Lvl) [facility] HospitalWdqjgufSTLYVLGHQYGE2898-09-45 21:03:00 Test Item Value Reference Range Interpretation Comments Chloride Lvl (test code = Chloride Lvl) 105 95-109 [facility] HospitalNyentvrHASACPMVADQB7376-68-96 21:03:00 Test Item Value Reference Range Interpretation Comments CO2 (test code = CO2) 26 24-32 [facility] HospitalTgldrbsWFQSQYJYBHBB0365-61-54 21:03:00 Test Item Value Reference Range Interpretation Comments Calcium Lvl (test code = Calcium Lvl) 9.5 8.5-10.5 [facility] HospitalOkqqjkfIEAXEZIIVMWD4415-52-09 21:03:00 Test Item Value Reference Range Interpretation Comments Total Protein (test code = Total 7.2 6.4-8.4 Protein) [facility] HospitalLjywnmuVLZPQLSSJQQI2956-21-67 21:03:00 Test Item Value Reference Range Interpretation Comments Albumin Lvl (test code = Albumin Lvl) 3.4 3.5-5.0 [facility] HospitalAcqsfbnIQCPYTOWIFYR5643-25-58 21:03:00 Test Item Value Reference Range Interpretation Comments ALT (test code = ALT) 28 See_Comment [Auto mated message] The system which ge nerated this result transmit todd reference range : <=65. The reference range was not used to interpr et this result as kimberli l/abnormal. [facility] HospitalYrgbtxcFQDWLRHAAWZL2702-13-89 21:03:00 Test Item Value Reference Range Interpretation Comments AST (test code = AST) 22 See_Comment [Auto mated message] The system which ge nerated this result transmit todd reference range : <=37. The reference range was not used to interpr et this result as kimberli l/abnormal. [facility] HospitalAlhnykjTBYVURHIACTP4958-91-66 21:03:00 Test Item Value Reference Range Interpretation Comments Alk Phos (test code = Alk Phos) 82 39-136 [facility] HospitalJstxchhMBTRPETAZPWF8171-65-96 21:03:00 Test Item Value Reference Range Interpretation Comments Bili Total (test code = Bili Total) 0.4 0.2-1.3 [facility] HospitalFmvrdaiLCNZOIWMXBCM6890-02-31 21:03:00 Test Item Value Reference Range Interpretation Comments eGFR (test code = eGFR) 29 [facility] SystemFyuetsiAWYGCTZYFH4696-26-14 21:03:00 Test Item Value Reference Range Interpretation Comments WBC (test code = WBC) 11.0 3.7-10.4 [facility] SystemJfzmqfkCXMATZNALS3360-81-21 21:03:00 Test Item Value Reference Range Interpretation Comments RBC (test code = RBC) 4.22 4.70-6.10 [facility] SystemAnfmlauMJJVEFALFI4277-80-09 21:03:00 Test Item Value Reference Range Interpretation Comments Hgb (test code = Hgb) 13.4 14.0-18.0 [facility] SystemHvqlatgZJSAVSGTQE0908-52-95 21:03:00 Test Item Value Reference Range Interpretation Comments Hct (test code = Hct) 40.2 42.0-54.0 [facility] SystemArsybchXWKFUCFASB8971-97-26 21:03:00 Test Item Value Reference Range Interpretation Comments MCV (test code = MCV) 95.2 80.0-94.0 [facility] SystemOcgvukwJNPEMIZAZC3842-53-87 21:03:00 Test Item Value Reference Range Interpretation Comments MCH (test code = MCH) 31.7 pg 27.0-31.0 [facility] SystemMxyxlinETYAIENZBC8588-36-14 21:03:00 Test Item Value Reference Range Interpretation Comments MCHC (test code = MCHC) 33.3 32.0-36.0 [facility] SystemSmynsfeCUGLZDILGG5064-82-76 21:03:00 Test Item Value Reference Range Interpretation Comments RDW (test code = RDW) 14.3 11.5-14.5 [facility] SystemFepijidSCMYRFQUPU2052-95-06 21:03:00 Test Item Value Reference Range Interpretation Comments Platelet (test code = Platelet) 286 133-450 [facility] SystemZhcwquaNVSKCQVSIB4659-38-49 21:03:00 Test Item Value Reference Range Interpretation Comments MPV (test code = MPV) 8.5 7.4-10.4 [facility] SystemQnxuqcnSMDEGFLQFM6620-25-75 21:03:00 Test Item Value Reference Range Interpretation Comments Segs (test code = Segs) 91.9 45.0-75.0 [facility] SystemYhbsyrbUULUCFYJHJ8770-18-97 21:03:00 Test Item Value Reference Range Interpretation Comments Lymphocytes (test code = Lymphocytes) 5.0 20.0-40.0 [facility] SystemFwmnmsxYVQOOMLDRD3371-57-46 21:03:00 Test Item Value Reference Range Interpretation Comments Monocytes (test code = Monocytes) 2.4 2.0-12.0 [facility] SystemUyuxzwuVGLBAVUQSL9930-61-38 21:03:00 Test Item Value Reference Range Interpretation Comments Basophils (test code = 0.7 See_Comment [Aut omated message] The Basophils) system which ge nerated this result tra nsmitted reference range : <=1.0. The reference r carolynn was not used to int erpret this result as normal/abnormal . [facility] SystemHwgnuolCMRXJNMPQR1483-82-21 21:03:00 Test Item Value Reference Range Interpretation Comments Neutrophils # (test code = Neutrophils 10.1 1.5-8.1 #) [facility] SystemRwodmkiOCUVIZPBKB6757-17-17 21:03:00 Test Item Value Reference Range Interpretation Comments Lymphocytes # (test code = Lymphocytes 0.5 1.0-5.5 #) [facility] SystemKzruffeRCSMHJAEPQ3399-88-26 21:03:00 Test Item Value Reference Range Interpretation Comments Monocytes # (test code 0.3 See_Comment [Aut omated message] The = Monocytes #) system which generated this result tra nsmitted reference range : <=0.8. The reference r carolynn was not used to int erpret this result as normal/abnormal . [facility] SystemVyckjbiBWNBFUAOJF3342-48-93 21:03:00 Test Item Value Reference Range Interpretation Comments Basophils # (test code 0.1 See_Comment [Aut omated message] The = Basophils #) system which generated this result tra nsmitted reference range : <=0.2. The reference r carolynn was not used to int erpret this result as normal/abnormal . [facility] PearlandBreadcrumbtrackingCARCubeit.fmAC YWUXBIH6059-51-91 21:03:00 Test Item Value Reference Range Interpretation Comments Troponin-I (test code no gt See_Comment [Auto mated message] The = Troponin-I) system which g enerated this result transmit todd reference range : <=0.40. The reference r carolynn was not used to interpr et this result as kimberli l/abnormal. [facility] DallasCARCubeit.fmAC FGXRWMQ4352-09-35 21:03:00 Test Item Value Reference Range Interpretation Comments BNP (test code = BNP) 75 [facility] DallasCHEM HHEAG3520-77-64 21:03:00 Test Item Value Reference Range Interpretation Comments Lipase Lvl (test code = Lipase Lvl) 130 73-393 [facility] HospitalEkxduvdCVMRVDSAZXFS0219-21-71 21:03:00 Test Item Value Reference Range Interpretation Comments AGAP (test code = AGAP) 12.6 10.0-20.0 [facility] HospitalMjhxcqxZCTWYSIJUWQJ9038-38-66 21:03:00 Test Item Value Reference Range Interpretation Comments B/C Ratio (test code = B/C Ratio) 16 1 6-25 [facility] HospitalOfiwwasRLLVRBARJSQR0685-09-49 21:03:00 Test Item Value Reference Range Interpretation Comments Globulin (test code = Globulin) 3.8 2.7-4.2 [facility] HospitalPynbbeaIIEEHXOFCJFW5410-32-00 21:03:00 Test Item Value Reference Range Interpretation Comments A/G Ratio (test code = A/G Ratio) 0.9 1 0.7-1.6 [facility] HospitalUrrbysbGKJMSRADSFBK6753-60-59 21:03:00 Test Item Value Reference Range Interpretation Comments Glucose Lvl (test code = Glucose Lvl) 177 70-99 [facility] HospitalOflwnqiXKCDWFPXCXLT4846-59-83 21:03:00 Test Item Value Reference Range Interpretation Comments BUN (test code = BUN) 35 7-22 [facility] HospitalYemdvenEGPBIDNGMLAR6432-86-44 21:03:00 Test Item Value Reference Range Interpretation Comments Creatinine Lvl (test code = Creatinine 2.24 0.50-1.40 Lvl) [facility] HospitalHbmwbmoDLKKZKXIWNQZ2750-44-12 21:03:00 Test Item Value Reference Range Interpretation Comments Sodium Lvl (test code = Sodium Lvl) 139 135-145 [facility] HospitalOdjilxeRQNCISMHZABK2177-51-14 21:03:00 Test Item Value Reference Range Interpretation Comments Potassium Lvl (test code = Potassium 4.6 3.5-5.1 Lvl) [facility] HospitalWjefgkoEVSWTQKCSTJG3536-85-79 21:03:00 Test Item Value Reference Range Interpretation Comments Chloride Lvl (test code = Chloride Lvl) 105 95-109 [facility] HospitalVrfenwlTSSARBWDLFPZ2497-80-67 21:03:00 Test Item Value Reference Range Interpretation Comments CO2 (test code = CO2) 26 24-32 [facility] HospitalLwgitdyMEFOFUZXZAZI9952-04-12 21:03:00 Test Item Value Reference Range Interpretation Comments Calcium Lvl (test code = Calcium Lvl) 9.5 8.5-10.5 [facility] HospitalNwhdszgLVGJHQBSBEJH4515-77-02 21:03:00 Test Item Value Reference Range Interpretation Comments Total Protein (test code = Total 7.2 6.4-8.4 Protein) [facility] HospitalXdsgppeOBNVGRKIHPGF1224-70-77 21:03:00 Test Item Value Reference Range Interpretation Comments Albumin Lvl (test code = Albumin Lvl) 3.4 3.5-5.0 [facility] HospitalQotncheFQTTRPWXCYIX5838-13-87 21:03:00 Test Item Value Reference Range Interpretation Comments ALT (test code = ALT) 28 See_Comment [Auto mated message] The system which ge nerated this result transmit todd reference range : <=65. The reference range was not used to interpr et this result as kimberli l/abnormal. [facility] HospitalPtjuqwgYIHJZEEMENYR0746-82-90 21:03:00 Test Item Value Reference Range Interpretation Comments AST (test code = AST) 22 See_Comment [Auto mated message] The system which ge nerated this result transmit todd reference range : <=37. The reference range was not used to interpr et this result as kimberli l/abnormal. [facility] HospitalTzbtdpyEAYJENIUUEWP0627-65-34 21:03:00 Test Item Value Reference Range Interpretation Comments Alk Phos (test code = Alk Phos) 82 39-136 [facility] HospitalTetfowkFAAXEMKHSIYG4424-33-25 21:03:00 Test Item Value Reference Range Interpretation Comments Bili Total (test code = Bili Total) 0.4 0.2-1.3 [facility] HospitalVgjlsieXTIBAWFHOBEL0516-07-71 21:03:00 Test Item Value Reference Range Interpretation Comments eGFR (test code = eGFR) 29 [facility]aultYsfagkqBLTRGMYXNF1582-41-35 21:03:00 Test Item Value Reference Range Interpretation Comments WBC (test code = WBC) 11.0 3.7-10.4 [facility] SaultSpwovgfEKATFTLHOZ8030-70-35 21:03:00 Test Item Value Reference Range Interpretation Comments RBC (test code = RBC) 4.22 4.70-6.10 [facility] SaultMyncpsyDKTFDITJUV7754-52-51 21:03:00 Test Item Value Reference Range Interpretation Comments Hgb (test code = Hgb) 13.4 14.0-18.0 [facility] SaultNatqfjxUYKWBLZJBA2192-02-95 21:03:00 Test Item Value Reference Range Interpretation Comments Hct (test code = Hct) 40.2 42.0-54.0 [facility] SystemVgbwlkoSJGJPGHMHI5962-60-98 21:03:00 Test Item Value Reference Range Interpretation Comments MCV (test code = MCV) 95.2 80.0-94.0 [facility] SaultCiygvrsRLVFHYHESS7955-32-52 21:03:00 Test Item Value Reference Range Interpretation Comments MCH (test code = MCH) 31.7 pg 27.0-31.0 [facility] SaultXobixgfQGTOZDAXRP2681-07-38 21:03:00 Test Item Value Reference Range Interpretation Comments MCHC (test code = MCHC) 33.3 32.0-36.0 [facility] SystemIstbbqyIHTMUYKXMZ8799-62-68 21:03:00 Test Item Value Reference Range Interpretation Comments RDW (test code = RDW) 14.3 11.5-14.5 [facility] SystemUojnqzoUJBDSDKMJT9430-56-28 21:03:00 Test Item Value Reference Range Interpretation Comments Platelet (test code = Platelet) 286 133-450 [facility] SaultPdotfwbBTNYILLYMW1001-11-74 21:03:00 Test Item Value Reference Range Interpretation Comments MPV (test code = MPV) 8.5 7.4-10.4 [facility] SystemJzhgwxgAZCDBAHEGU7248-49-52 21:03:00 Test Item Value Reference Range Interpretation Comments Segs (test code = Segs) 91.9 45.0-75.0 [facility] SaultHawiuffRLGAZBQKLS7954-33-85 21:03:00 Test Item Value Reference Range Interpretation Comments Lymphocytes (test code = Lymphocytes) 5.0 20.0-40.0 [facility] SaultEbdfcokKAWWUZKYTL3086-12-45 21:03:00 Test Item Value Reference Range Interpretation Comments Monocytes (test code = Monocytes) 2.4 2.0-12.0 [facility] SaultKtogibjPWKVRSLEAT7976-59-19 21:03:00 Test Item Value Reference Range Interpretation Comments Basophils (test code = 0.7 See_Comment [Aut omated message] The Basophils) system which ge nerated this result tra nsmitted reference range : <=1.0. The reference r carolynn was not used to int erpret this result as normal/abnormal . [facility] SystemNtzkahvWWHSUWFXCJ2802-53-45 21:03:00 Test Item Value Reference Range Interpretation Comments Neutrophils # (test code = Neutrophils 10.1 1.5-8.1 #) [facility] SaultQyaglhpOPPELWHDZM0617-53-95 21:03:00 Test Item Value Reference Range Interpretation Comments Lymphocytes # (test code = Lymphocytes 0.5 1.0-5.5 #) [facility] SaultIvvpowzIBZEHDMLSZ2779-72-03 21:03:00 Test Item Value Reference Range Interpretation Comments Monocytes # (test code 0.3 See_Comment [Aut omated message] The = Monocytes #) system which generated this result tra nsmitted reference range : <=0.8. The reference r carolynn was not used to int erpret this result as normal/abnormal . [facility] SaultHujfstyPMVAOZHUQZ9264-63-47 21:03:00 Test Item Value Reference Range Interpretation Comments Basophils # (test code 0.1 See_Comment [Aut omated message] The = Basophils #) system which generated this result tra nsmitted reference range : <=0.2. The reference r carolynn was not used to int erpret this result as normal/abnormal . [facility] DallasCARDIAC MOSHSSK6334-97-66 21:03:00 Test Item Value Reference Range Interpretation Comments Troponin-I (test code = Troponin-I) no gt <=0.40 [facility] DallasCARDIAC FCOATGL3468-88-99 21:03:00 Test Item Value Reference Range Interpretation Comments BNP (test code = BNP) 75 [facility] DallasCHEM ZFUED4108-03-41 21:03:00 Test Item Value Reference Range Interpretation Comments Lipase Lvl (test code = Lipase Lvl) 130 73-393 [facility] HospitalZjqwbhyIYBCZFEZILPX8001-03-99 21:03:00 Test Item Value Reference Range Interpretation Comments AGAP (test code = AGAP) 12.6 10.0-20.0 [facility] HospitalWjrxlfsCGVZYIJXLENG9557-58-20 21:03:00 Test Item Value Reference Range Interpretation Comments B/C Ratio (test code = B/C Ratio) 16 1 6-25 [facility] HospitalPsdilnxPFGYZSITLJSH1668-79-48 21:03:00 Test Item Value Reference Range Interpretation Comments Globulin (test code = Globulin) 3.8 2.7-4.2 [facility] HospitalPceepzvSLLAZOBJVVMJ0295-12-87 21:03:00 Test Item Value Reference Range Interpretation Comments A/G Ratio (test code = A/G Ratio) 0.9 1 0.7-1.6 [facility] HospitalHthhrtaHEPOOUODLAEJ3735-38-77 21:03:00 Test Item Value Reference Range Interpretation Comments Glucose Lvl (test code = Glucose Lvl) 177 70-99 [facility] [facility]LowqjfkQLQIAWHQTYVT7717-43-06 21:03:00 Test Item Value Reference Range Interpretation Comments BUN (test code = BUN) 35 7-22 [facility]LbukeluMLWBPIAMVLAT7868-37-41 21:03:00 Test Item Value Reference Range Interpretation Comments Creatinine Lvl (test code = Creatinine 2.24 0.50-1.40 Lvl) [facility] HospitalBrcyonmTPWIVNGWQXTY0870-83-08 21:03:00 Test Item Value Reference Range Interpretation Comments Sodium Lvl (test code = Sodium Lvl) 139 135-145 [facility] HospitalPsdvynqSVEOPFOWHDCQ3871-39-58 21:03:00 Test Item Value Reference Range Interpretation Comments Potassium Lvl (test code = Potassium 4.6 3.5-5.1 Lvl) [facility] HospitalRqoialdOGYVLFGUKJHA1110-91-87 21:03:00 Test Item Value Reference Range Interpretation Comments Chloride Lvl (test code = Chloride Lvl) 105 95-109 [facility] HospitalFjuosfoLUFPGOYYKOKF1481-99-44 21:03:00 Test Item Value Reference Range Interpretation Comments CO2 (test code = CO2) 26 24-32 [facility] HospitalGgttgveLNDMDHKEITWK8925-77-50 21:03:00 Test Item Value Reference Range Interpretation Comments Calcium Lvl (test code = Calcium Lvl) 9.5 8.5-10.5 [facility] HospitalTgdzjkfZLXMOSBBKCJQ8606-68-88 21:03:00 Test Item Value Reference Range Interpretation Comments Total Protein (test code = Total 7.2 6.4-8.4 Protein) [facility] HospitalJvauusiCTZAKFFQWKFL9304-69-18 21:03:00 Test Item Value Reference Range Interpretation Comments Albumin Lvl (test code = Albumin Lvl) 3.4 3.5-5.0 [facility] HospitalXmwfrdxINULNORDXUNW6952-66-89 21:03:00 Test Item Value Reference Range Interpretation Comments ALT (test code = ALT) 28 <=65 [facility] HospitalFegtdmxZMYBNLDHFZEE2943-56-23 21:03:00 Test Item Value Reference Range Interpretation Comments AST (test code = AST) 22 <=37 [facility] HospitalVjtqmekFLKHFOFHXFVJ7522-52-91 21:03:00 Test Item Value Reference Range Interpretation Comments Alk Phos (test code = Alk Phos) 82 39-136 [facility] HospitalMonjlsxKZPIFNOKAJEV0166-79-39 21:03:00 Test Item Value Reference Range Interpretation Comments Bili Total (test code = Bili Total) 0.4 0.2-1.3 [facility] HospitalLbbwzmrBAOXQFQSJTJP2711-79-46 21:03:00 Test Item Value Reference Range Interpretation Comments eGFR (test code = eGFR) 29 [facility] SystemNolnkymMKPNAZJYQD6596-75-84 21:03:00 Test Item Value Reference Range Interpretation Comments WBC (test code = WBC) 11.0 3.7-10.4 [facility] SystemWvuybzpTITEQGUWZY7189-67-27 21:03:00 Test Item Value Reference Range Interpretation Comments RBC (test code = RBC) 4.22 4.70-6.10 [facility] SystemWeseegsBRXPXSPWWM7657-98-92 21:03:00 Test Item Value Reference Range Interpretation Comments Hgb (test code = Hgb) 13.4 14.0-18.0 [facility] SystemKcxwrvxWPRJFYTSBF2491-35-97 21:03:00 Test Item Value Reference Range Interpretation Comments Hct (test code = Hct) 40.2 42.0-54.0 [facility] SystemSbkuljaTKITUIACST1555-12-72 21:03:00 Test Item Value Reference Range Interpretation Comments MCV (test code = MCV) 95.2 80.0-94.0 [facility] SystemZdxoycwQXYLFWYIPV7467-94-55 21:03:00 Test Item Value Reference Range Interpretation Comments MCH (test code = MCH) 31.7 pg 27.0-31.0 [facility]UghpqqzFBNDULVNDZ2361-11-89 21:03:00 Test Item Value Reference Range Interpretation Comments MCHC (test code = MCHC) 33.3 32.0-36.0 [facility]aultTnkcowuFTCTRBQNGY0732-45-56 21:03:00 Test Item Value Reference Range Interpretation Comments RDW (test code = RDW) 14.3 11.5-14.5 [facility] SaultMglooohNWTSJRHRFI9023-09-11 21:03:00 Test Item Value Reference Range Interpretation Comments Platelet (test code = Platelet) 286 133-450 [facility] SaultFuvklipXQMITDPXNV5914-79-99 21:03:00 Test Item Value Reference Range Interpretation Comments MPV (test code = MPV) 8.5 7.4-10.4 [facility] SystemJqccpkvYARULNOQJQ9478-03-60 21:03:00 Test Item Value Reference Range Interpretation Comments Segs (test code = Segs) 91.9 45.0-75.0 [facility] SystemKaficqgSTLDDZITXN7386-96-27 21:03:00 Test Item Value Reference Range Interpretation Comments Lymphocytes (test code = Lymphocytes) 5.0 20.0-40.0 [facility] SystemNmruaqiYFLLHXSRLM8418-82-22 21:03:00 Test Item Value Reference Range Interpretation Comments Monocytes (test code = Monocytes) 2.4 2.0-12.0 [facility] SystemJgbmefwEGPPWKWKGV3450-69-10 21:03:00 Test Item Value Reference Range Interpretation Comments Basophils (test code = Basophils) 0.7 <=1.0 [facility] SystemIambrsfILXQDYOPIF2741-07-20 21:03:00 Test Item Value Reference Range Interpretation Comments Neutrophils # (test code = Neutrophils 10.1 1.5-8.1 #) [facility] SystemNnxcyxyAXJHUAOFOG0790-54-44 21:03:00 Test Item Value Reference Range Interpretation Comments Lymphocytes # (test code = Lymphocytes 0.5 1.0-5.5 #) [facility] SystemYaufqlkDTYKLOMVCW7670-07-52 21:03:00 Test Item Value Reference Range Interpretation Comments Monocytes # (test code = Monocytes #) 0.3 <=0.8 [facility] DallasBkcllqvKXBQJWJRKU2653-92-40 21:03:00 Test Item Value Reference Range Interpretation Comments Basophils # (test code = Basophils #) 0.1 <=0.2 [facility]DIM[facility]ITALMPMGXBL4638-09-29 21:03:00 Test Item Value Reference Range Interpretation Comments Troponin-I (test code = Troponin-I) no gt <=0.40 [facility] DallasCARDIAC AYMTYBF4862-80-97 21:03:00 Test Item Value Reference Range Interpretation Comments BNP (test code = BNP) 75 [facility] DallasCHEM XUHAD3357-85-39 21:03:00 Test Item Value Reference Range Interpretation Comments Lipase Lvl (test code = Lipase Lvl) 130 73-393 [facility]KppqlmsXXSLAONQHCQK9487-46-15 21:03:00 Test Item Value Reference Range Interpretation Comments AGAP (test code = AGAP) 12.6 10.0-20.0 [facility] HospitalSqazubtNZWCJMECDSJE0407-56-21 21:03:00 Test Item Value Reference Range Interpretation Comments B/C Ratio (test code = B/C Ratio) 16 1 6-25 [facility] HospitalIrhbgzkJYUWJKUAETMM0676-71-61 21:03:00 Test Item Value Reference Range Interpretation Comments Globulin (test code = Globulin) 3.8 2.7-4.2 [facility] HospitalYpcdrpkKFOWEZHXOTQD8927-04-60 21:03:00 Test Item Value Reference Range Interpretation Comments A/G Ratio (test code = A/G Ratio) 0.9 1 0.7-1.6 [facility] HospitalWnsuvkyQUFFHWUQZSPV5485-11-56 21:03:00 Test Item Value Reference Range Interpretation Comments Glucose Lvl (test code = Glucose Lvl) 177 70-99 [facility] HospitalAspxchzQWQIRDPGTWVP2276-72-41 21:03:00 Test Item Value Reference Range Interpretation Comments BUN (test code = BUN) 35 7-22 [facility] HospitalWegfbvgSNSKGFTAZMRU1239-57-18 21:03:00 Test Item Value Reference Range Interpretation Comments Creatinine Lvl (test code = Creatinine 2.24 0.50-1.40 Lvl) [facility] HospitalWfivpzjOBLLIMSXTEIS5337-26-46 21:03:00 Test Item Value Reference Range Interpretation Comments Sodium Lvl (test code = Sodium Lvl) 139 135-145 [facility] HospitalClcekpuRRETBPIQTPON3025-56-26 21:03:00 Test Item Value Reference Range Interpretation Comments Potassium Lvl (test code = Potassium 4.6 3.5-5.1 Lvl) [facility] HospitalMxkvxqbDEDPSEIJIQIH2321-34-14 21:03:00 Test Item Value Reference Range Interpretation Comments Chloride Lvl (test code = Chloride Lvl) 105 95-109 [facility] HospitalRwqgtmcFXTWQPUDFZIM3768-66-61 21:03:00 Test Item Value Reference Range Interpretation Comments CO2 (test code = CO2) 26 24-32 [facility] HospitalYktjwdmJUAWJJFWDBCZ4971-75-43 21:03:00 Test Item Value Reference Range Interpretation Comments Calcium Lvl (test code = Calcium Lvl) 9.5 8.5-10.5 [facility] HospitalIfjjomjIDTHTGTEZEWL4342-31-80 21:03:00 Test Item Value Reference Range Interpretation Comments Total Protein (test code = Total 7.2 6.4-8.4 Protein) [facility] HospitalXgjxxlfJSFDBQOYVETC7033-88-90 21:03:00 Test Item Value Reference Range Interpretation Comments Albumin Lvl (test code = Albumin Lvl) 3.4 3.5-5.0 [facility] HospitalCykclmmYFIRVLCJUHZY5903-27-20 21:03:00 Test Item Value Reference Range Interpretation Comments ALT (test code = ALT) 28 <=65 [facility] HospitalNgynqwiHIVJETDDXWND4363-72-88 21:03:00 Test Item Value Reference Range Interpretation Comments AST (test code = AST) 22 <=37 [facility] HospitalSurjxlnPADAWZVPNZZH1861-16-46 21:03:00 Test Item Value Reference Range Interpretation Comments Alk Phos (test code = Alk Phos) 82 39-136 [facility] HospitalOftjaciBHZOSHVWTMYI6749-30-83 21:03:00 Test Item Value Reference Range Interpretation Comments Bili Total (test code = Bili Total) 0.4 0.2-1.3 [facility] HospitalYlliivjSNPMWDBNQXIK9121-76-18 21:03:00 Test Item Value Reference Range Interpretation Comments eGFR (test code = eGFR) 29 [facility] SystemNxrxclwTWVNPFGFLJ9559-14-23 21:03:00 Test Item Value Reference Range Interpretation Comments WBC (test code = WBC) 11.0 3.7-10.4 [facility] SystemAtsmihqQVKIBSOASM4148-86-70 21:03:00 Test Item Value Reference Range Interpretation Comments RBC (test code = RBC) 4.22 4.70-6.10 [facility] SystemLutwxzoDUNTLULDDF7383-59-80 21:03:00 Test Item Value Reference Range Interpretation Comments Hgb (test code = Hgb) 13.4 14.0-18.0 [facility] SystemZnqhguuWPGIIYSRTW0276-05-20 21:03:00 Test Item Value Reference Range Interpretation Comments Hct (test code = Hct) 40.2 42.0-54.0 [facility] SystemXxleittDFKAWCCWLC1239-74-68 21:03:00 Test Item Value Reference Range Interpretation Comments MCV (test code = MCV) 95.2 80.0-94.0 [facility] SystemJtorvjxTKFOCXHVIX2484-61-08 21:03:00 Test Item Value Reference Range Interpretation Comments MCH (test code = MCH) 31.7 pg 27.0-31.0 [facility] SystemRvbbxmrZAYAXWDGRP8777-15-88 21:03:00 Test Item Value Reference Range Interpretation Comments MCHC (test code = MCHC) 33.3 32.0-36.0 [facility] SystemSnjavsmMIQXMLDWKU8896-68-18 21:03:00 Test Item Value Reference Range Interpretation Comments RDW (test code = RDW) 14.3 11.5-14.5 [facility] SystemJbittfqBJYTTAPPTM0578-91-16 21:03:00 Test Item Value Reference Range Interpretation Comments Platelet (test code = Platelet) 286 133-450 [facility] SystemLdbeobaCJOSYZGNRS0033-97-82 21:03:00 Test Item Value Reference Range Interpretation Comments MPV (test code = MPV) 8.5 7.4-10.4 [facility] SystemVsisqisXLOZCBHVRA4222-74-37 21:03:00 Test Item Value Reference Range Interpretation Comments Segs (test code = Segs) 91.9 45.0-75.0 [facility] SystemQfzvvhiCLAZWARPFX5363-02-99 21:03:00 Test Item Value Reference Range Interpretation Comments Lymphocytes (test code = Lymphocytes) 5.0 20.0-40.0 [facility] SystemJoxuijhCDXMABQOQX4376-59-55 21:03:00 Test Item Value Reference Range Interpretation Comments Monocytes (test code = Monocytes) 2.4 2.0-12.0 [facility] SystemBanrqnwRWNVXFHTIQ6024-34-33 21:03:00 Test Item Value Reference Range Interpretation Comments Basophils (test code = Basophils) 0.7 <=1.0 [facility] SystemWtzcmmlXKZKULXTVZ6880-40-33 21:03:00 Test Item Value Reference Range Interpretation Comments Neutrophils # (test code = Neutrophils 10.1 1.5-8.1 #) [facility] SystemAhqknzaCZZEGTTGHD2779-75-50 21:03:00 Test Item Value Reference Range Interpretation Comments Lymphocytes # (test code = Lymphocytes 0.5 1.0-5.5 #) [facility]KsszkaeINFJPMYKVP5263-80-09 21:03:00 Test Item Value Reference Range Interpretation Comments Monocytes # (test code = Monocytes #) 0.3 <=0.8 [facility] SzbqkvnMDPADLRPVI8528-23-73 21:03:00 Test Item Value Reference Range Interpretation Comments Basophils # (test code = Basophils #) 0.1 <=0.2 [facility] YLUOF1529-70-45 23:00:00 Test Item Value Reference Range Interpretation Comments Occult Bld Stl (test Negative (09/29/15 6:00 code = Occult Bld Stl) PM) [facility] RUETP4566-56-82 23:00:00 Test Item Value Reference Range Interpretation Comments Occult Bld Stl (test Negative (09/29/15 6:00 code = Occult Bld Stl) PM) [facility] KWYTN2056-17-43 23:00:00 Test Item Value Reference Range Interpretation Comments Occult Bld Stl (test Negative (09/29/15 6:00 code = Occult Bld Stl) PM) [facility] VRVZG9149-71-04 23:00:00 Test Item Value Reference Range Interpretation Comments Occult Bld Stl (test Negative (09/29/15 6:00 code = Occult Bld Stl) PM) [facility] BFYGG1200-24-53 23:00:00 Test Item Value Reference Range Interpretation Comments Occult Bld Stl (test Negative (09/29/15 6:00 code = Occult Bld Stl) PM) [facility] HQPKN3048-10-65 23:00:00 Test Item Value Reference Range Interpretation Comments Occult Bld Stl (test Negative (09/29/15 6:00 code = Occult Bld Stl) PM) [facility] EOKVM2201-80-75 23:00:00 Test Item Value Reference Range Interpretation Comments Occult Bld Stl (test Negative (09/29/15 6:00 code = Occult Bld Stl) PM) [facility] RWYDV2990-03-26 13:12:00 Test Item Value Reference Range Interpretation Comments Uric Acid (test code = Uric Acid) 7.9 3.8-8.0 [facility] HospitalZwgibciHZSSPUFWQDNW0144-73-38 13:12:00 Test Item Value Reference Range Interpretation Comments AGAP (test code = AGAP) 11.5 10.0-20.0 [facility] HospitalNnhmmmgPUHQQOMNIQCH0227-77-73 13:12:00 Test Item Value Reference Range Interpretation Comments B/C Ratio (test code = B/C Ratio) 20 6-25 [facility] HospitalHrryrinBBIKJSYEREIT2375-02-78 13:12:00 Test Item Value Reference Range Interpretation Comments Globulin (test code = Globulin) 3.2 2.0-4.0 [facility] HospitalNafqtiqDHGUOAKJSXZU4985-71-33 13:12:00 Test Item Value Reference Range Interpretation Comments A/G Ratio (test code = A/G Ratio) 1.4 0.7-1.6 [facility] HospitalPetkdakRBZSGSFIHIFZ1324-43-01 13:12:00 Test Item Value Reference Range Interpretation Comments eGFR (test code = eGFR) 49 [facility] HospitalHmdvghnBIDYUCBJLLVG4599-30-48 13:12:00 Test Item Value Reference Range Interpretation Comments Bili Total (test code = Bili Total) 0.5 0.2-1.3 [facility] HospitalDpsokyaDFRRPVRRIXZN9813-68-32 13:12:00 Test Item Value Reference Range Interpretation Comments Sodium Lvl (test code = Sodium Lvl) 140 135-145 [facility] HospitalLtoppzsSUQIFZBOKMTK1362-09-61 13:12:00 Test Item Value Reference Range Interpretation Comments Creatinine Lvl (test code = Creatinine 1.48 0.50-1.40 Lvl) [facility] HospitalWpokntzUGWENNQUUQPM4529-21-18 13:12:00 Test Item Value Reference Range Interpretation Comments BUN (test code = BUN) 29 7-22 [facility] HospitalYguwhpdVZIFMEDZGLZC6659-73-28 13:12:00 Test Item Value Reference Range Interpretation Comments Glucose Lvl (test code = Glucose Lvl) 123 70-99 [facility] HospitalMmiswvpDBWDAMMCWZUY7464-10-09 13:12:00 Test Item Value Reference Range Interpretation Comments ALT (test code = ALT) 20 See_Comment [Auto mated message] The system which ge nerated this result transmit todd reference range : <=65. The reference range was not used to interpr et this result as kimberli l/abnormal. [facility] HospitalMptomjxSARZIUKYDZXW4851-21-94 13:12:00 Test Item Value Reference Range Interpretation Comments AST (test code = AST) 9 See_Comment [Auto mated message] The system which ge nerated this result transmit todd reference range : <=37. The reference range was not used to interpr et this result as kimberli l/abnormal. [facility] HospitalRkxqzagNZKIQEGRFAGZ2314-94-04 13:12:00 Test Item Value Reference Range Interpretation Comments Alk Phos (test code = Alk Phos) 76 39-136 [facility] HospitalAbncbcbYSQULCPKSIVV9767-00-36 13:12:00 Test Item Value Reference Range Interpretation Comments Calcium Lvl (test code = Calcium Lvl) 9.2 8.5-10.5 [facility] HospitalTidbqniDFQNWGEYJCXL5108-53-87 13:12:00 Test Item Value Reference Range Interpretation Comments Albumin Lvl (test code = Albumin Lvl) 4.4 3.5-5.0 [facility] HospitalFkqwjjnVZAZDNTMLMPB9590-84-54 13:12:00 Test Item Value Reference Range Interpretation Comments Potassium Lvl (test code = Potassium 4.5 3.5-5.1 Lvl) [facility] HospitalYyavforSXMFJXQROSCD6378-60-49 13:12:00 Test Item Value Reference Range Interpretation Comments Total Protein (test code = Total 7.6 6.4-8.4 Protein) [facility] HospitalRvblwpsLJMINVFTVTUW3690-59-84 13:12:00 Test Item Value Reference Range Interpretation Comments CO2 (test code = CO2) 28 24-32 [facility] HospitalEulwtamDSTTYVYAITZR8572-93-03 13:12:00 Test Item Value Reference Range Interpretation Comments Chloride Lvl (test code = Chloride Lvl) 105 95-109 [facility] SystemLvzcvcgMAXADWQXPT3362-20-01 13:12:00 Test Item Value Reference Range Interpretation Comments Segs (test code = Segs) 60.0 45.0-75.0 [facility] SystemCzvrikhVIASDMSEWR2162-13-94 13:12:00 Test Item Value Reference Range Interpretation Comments Eosinophils (test code = 3.3 See_Comment [A utomated message] The Eosinophils) system which ge nerated this result tra nsmitted reference range : <=4.0. The reference r carolynn was not used to int erpret this result as normal/abnormal . [facility] SystemZjujwrzGMPNULUBII1223-78-12 13:12:00 Test Item Value Reference Range Interpretation Comments Monocytes (test code = Monocytes) 8.1 2.0-12.0 [facility] SystemUxnjymdOWRWWOYUJI1438-52-59 13:12:00 Test Item Value Reference Range Interpretation Comments Lymphocytes (test code = Lymphocytes) 27.4 20.0-40.0 [facility] SystemBzyqokrHBPBCMRIVE0156-92-01 13:12:00 Test Item Value Reference Range Interpretation Comments Monocytes # (test code 0.5 See_Comment [Aut omated message] The = Monocytes #) system which generated this result tra nsmitted reference range : <=0.8. The reference r carolynn was not used to int erpret this result as normal/abnormal . [facility] SystemLbaisnzNYCXZBBQFY3029-73-32 13:12:00 Test Item Value Reference Range Interpretation Comments Basophils (test code = 1.2 See_Comment [Aut omated message] The Basophils) system which ge nerated this result tra nsmitted reference range : <=1.0. The reference r carolynn was not used to int erpret this result as normal/abnormal . [facility] SystemZnoiwdcCEUWDTBNND9135-44-21 13:12:00 Test Item Value Reference Range Interpretation Comments Lymphocytes # (test code = Lymphocytes 1.7 1.0-5.5 #) [facility] SystemNmwsraxFQNXNNIBAP8236-13-57 13:12:00 Test Item Value Reference Range Interpretation Comments Segs-Bands # (test code = Segs-Bands #) 3.6 1.5-8.1 [facility] SystemFjysjliYXNAPRFHMW0481-50-58 13:12:00 Test Item Value Reference Range Interpretation Comments Eosinophils # (test code 0.2 See_Comment [A utomated message] The = Eosinophils #) system whic h generated this result tra nsmitted reference range : <=0.5. The reference r carolynn was not used to int erpret this result as normal/abnormal . [facility] SystemIalncwmHOHDLJDUXR3354-00-90 13:12:00 Test Item Value Reference Range Interpretation Comments Basophils # (test code 0.1 See_Comment [Aut omated message] The = Basophils #) system which generated this result tra nsmitted reference range : <=0.2. The reference r carolynn was not used to int erpret this result as normal/abnormal . [facility] SystemPntpyrpDZRULNCHVJ5607-59-08 13:12:00 Test Item Value Reference Range Interpretation Comments Hgb (test code = Hgb) 13.9 14.0-18.0 [facility] SystemDilikvvKBIGRHLBMX3121-03-07 13:12:00 Test Item Value Reference Range Interpretation Comments RBC (test code = RBC) 4.57 4.70-6.10 [facility] SystemWwbbfwhAQPHYICLOP8282-83-88 13:12:00 Test Item Value Reference Range Interpretation Comments WBC (test code = WBC) 6.1 3.7-10.4 [facility] SystemRamdqgzQJXTDTWFEL1538-83-78 13:12:00 Test Item Value Reference Range Interpretation Comments Hct (test code = Hct) 40.6 42.0-54.0 [facility] SystemUzdssebIJHWMYSXCG2920-51-99 13:12:00 Test Item Value Reference Range Interpretation Comments MCH (test code = MCH) 30.4 pg 27.0-31.0 [facility] SystemExqpgafHOIMCPQGTJ5068-94-96 13:12:00 Test Item Value Reference Range Interpretation Comments MCV (test code = MCV) 88.9 80.0-94.0 [facility] SystemKuyxoqkJIFMNNIQND1074-41-64 13:12:00 Test Item Value Reference Range Interpretation Comments MCHC (test code = MCHC) 34.2 32.0-36.0 [facility] SystemZdpfvdnEBNZUFVKIE6959-64-76 13:12:00 Test Item Value Reference Range Interpretation Comments Platelet (test code = Platelet) 196 133-450 [facility] SystemMnjuktkYCFNLHBCEX4879-66-56 13:12:00 Test Item Value Reference Range Interpretation Comments RDW (test code = RDW) 13.7 11.5-14.5 [facility] SystemAeaubtkWBEJJQWZVM0380-20-75 13:12:00 Test Item Value Reference Range Interpretation Comments MPV (test code = MPV) 8.5 7.4-10.4 [facility]MkxzufhSEPZLF8343-66-80 13:12:00 Test Item Value Reference Range Interpretation Comments HDL (test code = HDL) 75 [facility] HospitalFtllwevIVSAAI4427-73-87 13:12:00 Test Item Value Reference Range Interpretation Comments Chol (test code = Chol) 143 [facility] HospitalFlenuqsDXATFN6593-17-32 13:12:00 Test Item Value Reference Range Interpretation Comments VLDL (test code = VLDL) 19 [facility] HospitalRqlpoaeJFTPOK8604-38-42 13:12:00 Test Item Value Reference Range Interpretation Comments Trig (test code = Trig) 94 [facility]KhejmemQZOYIJ1157-53-01 13:12:00 Test Item Value Reference Range Interpretation Comments LDL (Calculated) (test code = LDL 49 (Calculated)) [facility] DallasXiclecqPEEREI6919-14-62 13:12:00 Test Item Value Reference Range Interpretation Comments CHD Risk (test code = CHD Risk) 1.91 4.00-7.30 [facility] DallasSPECIAL MULGVJZCL7294-71-40 13:12:00 Test Item Value Reference Range Interpretation Comments Hgb A1C (test code = Hgb A1C) 6.9 [facility] AND [id number] 13:12:00 Test Item Value Reference Range Interpretation Comments UA Color (test code = UA Color) Ltyellow [facility] AND [id number] 13:12:00 Test Item Value Reference Range Interpretation Comments UA Urobilinogen (test code = UA <=1.0 mg/dL 0.1-1.0 Urobilinogen) [facility] AND [id number] 13:12:00 Test Item Value Reference Range Interpretation Comments UA Ketones (test code = UA Negative mg/dL Ketones) [facility] AND [id number] 13:12:00 Test Item Value Reference Range Interpretation Comments UA Glucose (test code = UA Negative mg/dL Glucose) [facility] AND [id number] 13:12:00 Test Item Value Reference Range Interpretation Comments UA Protein (test code = UA Protein) 100 mg/dL [facility] AND [id number] 13:12:00 Test Item Value Reference Range Interpretation Comments UA Leuk Est (test Negative (09/28/15 8:12 code = UA Leuk Est) AM) [facility] AND [id number] 13:12:00 Test Item Value Reference Range Interpretation Comments UA Nitrite (test code Negative (09/28/15 8:12 = UA Nitrite) AM) [facility] AND [id number] 13:12:00 Test Item Value Reference Range Interpretation Comments UA Bili (test code = Negative *NA*(09/28/15 UA Bili) 8:12 AM) [facility] AND [id number] 13:12:00 Test Item Value Reference Range Interpretation Comments UA Sq Epi (test code = UA Sq Epi) None [facility]en [facility] [facility] [id number] 13:12:00 Test Item Value Reference Range Interpretation Comments UA Blood (test code = Negative (09/28/15 8:12 UA Blood) AM) [facility] [id number] 13:12:00 Test Item Value Reference Range Interpretation Comments UA pH (test code = UA pH) 6.0 5.0-8.0 [facility] [id number] 13:12:00 Test Item Value Reference Range Interpretation Comments UA Spec Grav (test code = UA Spec Grav) 1.010 [facility] AND [id number] 13:12:00 Test Item Value Reference Range Interpretation Comments UA Turbidity (test code = Clear (09/28/15 8:12 UA Turbidity) AM) [facility] [id number] 13:12:00 Test Item Value Reference Range Interpretation Comments U Alb/Crea (test code = U Alb/Crea) 712.8 [facility] [id number] 13:12:00 Test Item Value Reference Range Interpretation Comments U Microalb (test code = U Microalb) 345.0 [facility] [id number] 13:12:00 Test Item Value Reference Range Interpretation Comments U Creatinine (test code = U Creatinine) 48.40 [facility] [id number] 13:12:00 Test Item Value Reference Range Interpretation Comments Uric Acid (test code = Uric Acid) 7.9 3.8-8.0 [facility] PasoKygaqmnUMKCMFWQGWPC8611-31-54 13:12:00 Test Item Value Reference Range Interpretation Comments AGAP (test code = AGAP) 11.5 10.0-20.0 [facility] PasoSzpghqeUSIGIMBSVZKY9264-29-49 13:12:00 Test Item Value Reference Range Interpretation Comments B/C Ratio (test code = B/C Ratio) 20 6-25 [facility] PasoGsvauocGSWDNITCVNCN2234-99-06 13:12:00 Test Item Value Reference Range Interpretation Comments Globulin (test code = Globulin) 3.2 2.0-4.0 [facility] PasoVsuekurZPEWHUDSZXMN9605-84-83 13:12:00 Test Item Value Reference Range Interpretation Comments A/G Ratio (test code = A/G Ratio) 1.4 0.7-1.6 [facility]hdjZLAYKDUGCOBB5588-35-07 13:12:00 Test Item Value Reference Range Interpretation Comments eGFR (test code = eGFR) 49 [facility]KwchnjgUJQEQZYGQIAI3662-72-24 13:12:00 Test Item Value Reference Range Interpretation Comments Bili Total (test code = Bili Total) 0.5 0.2-1.3 [facility] HospitalAbbbdtqWPHHVFBDZVMM4127-31-50 13:12:00 Test Item Value Reference Range Interpretation Comments Sodium Lvl (test code = Sodium Lvl) 140 135-145 [facility] HospitalKkunfgoZZAVRXFYMMHM6000-67-89 13:12:00 Test Item Value Reference Range Interpretation Comments Creatinine Lvl (test code = Creatinine 1.48 0.50-1.40 Lvl) [facility] HospitalLmlrlqjWPTLRAHMHTMZ2009-22-13 13:12:00 Test Item Value Reference Range Interpretation Comments BUN (test code = BUN) 29 7-22 [facility] HospitalKzcchssVXPCDICLHSGN3535-34-48 13:12:00 Test Item Value Reference Range Interpretation Comments Glucose Lvl (test code = Glucose Lvl) 123 70-99 [facility] HospitalVvdicufNSCPMNHTJTAW4495-28-68 13:12:00 Test Item Value Reference Range Interpretation Comments ALT (test code = ALT) 20 See_Comment [Auto mated message] The system which ge nerated this result transmit todd reference range : <=65. The reference range was not used to interpr et this result as kimberli l/abnormal. [facility] HospitalUjhgplwKDJBODHPHIAF8767-20-38 13:12:00 Test Item Value Reference Range Interpretation Comments AST (test code = AST) 9 See_Comment [Auto mated message] The system which ge nerated this result transmit todd reference range : <=37. The reference range was not used to interpr et this result as kimberli l/abnormal. [facility] HospitalAidjrukXMYVGKZYKHRW2479-01-31 13:12:00 Test Item Value Reference Range Interpretation Comments Alk Phos (test code = Alk Phos) 76 39-136 [facility] HospitalWsexkswUGBLCEGBMHNL7118-69-45 13:12:00 Test Item Value Reference Range Interpretation Comments Calcium Lvl (test code = Calcium Lvl) 9.2 8.5-10.5 [facility] HospitalHtyjpfmARZYWZCOSMUY1863-53-08 13:12:00 Test Item Value Reference Range Interpretation Comments Albumin Lvl (test code = Albumin Lvl) 4.4 3.5-5.0 [facility] HospitalZmyuqobXPVXZJWFAPWH4671-63-83 13:12:00 Test Item Value Reference Range Interpretation Comments Potassium Lvl (test code = Potassium 4.5 3.5-5.1 Lvl) [facility] HospitalUgxohpsLVMGOFSUKFAP0562-25-73 13:12:00 Test Item Value Reference Range Interpretation Comments Total Protein (test code = Total 7.6 6.4-8.4 Protein) [facility] HospitalJifkzjvTLSBUZPHPDTW2601-20-17 13:12:00 Test Item Value Reference Range Interpretation Comments CO2 (test code = CO2) 28 24-32 [facility] HospitalTdrzavzSVRBBKLFDTHN4190-38-52 13:12:00 Test Item Value Reference Range Interpretation Comments Chloride Lvl (test code = Chloride Lvl) 105 95-109 [facility] SystemIibcdpwECAKQPSXDN6019-99-45 13:12:00 Test Item Value Reference Range Interpretation Comments Segs (test code = Segs) 60.0 45.0-75.0 [facility] SystemOjxxitnQNHOSQMDHI7264-89-09 13:12:00 Test Item Value Reference Range Interpretation Comments Eosinophils (test code = 3.3 See_Comment [A utomated message] The Eosinophils) system which ge nerated this result tra nsmitted reference range : <=4.0. The reference r carolynn was not used to int erpret this result as normal/abnormal . [facility] SystemUxmtsnyDRXMAMWXUP8025-11-13 13:12:00 Test Item Value Reference Range Interpretation Comments Monocytes (test code = Monocytes) 8.1 2.0-12.0 [facility] SystemQftrttwHECJSTNHSB2284-15-81 13:12:00 Test Item Value Reference Range Interpretation Comments Lymphocytes (test code = Lymphocytes) 27.4 20.0-40.0 [facility] SystemGdhkzvhANIQLWTETI4021-58-29 13:12:00 Test Item Value Reference Range Interpretation Comments Monocytes # (test code 0.5 See_Comment [Aut omated message] The = Monocytes #) system which generated this result tra nsmitted reference range : <=0.8. The reference r carolynn was not used to int erpret this result as normal/abnormal . [facility] SystemIeodcidTMQOWKYVIE1828-63-91 13:12:00 Test Item Value Reference Range Interpretation Comments Basophils (test code = 1.2 See_Comment [Aut omated message] The Basophils) system which ge nerated this result tra nsmitted reference range : <=1.0. The reference r carolynn was not used to int erpret this result as normal/abnormal . [facility] SystemXoiwtjnZWLIFWIZBC7230-68-93 13:12:00 Test Item Value Reference Range Interpretation Comments Lymphocytes # (test code = Lymphocytes 1.7 1.0-5.5 #) [facility] SystemUdleuovOOQTYBDUKE5901-52-07 13:12:00 Test Item Value Reference Range Interpretation Comments Segs-Bands # (test code = Segs-Bands #) 3.6 1.5-8.1 [facility] SystemTsrsmuhKHSESEGRZE1538-41-29 13:12:00 Test Item Value Reference Range Interpretation Comments Eosinophils # (test code 0.2 See_Comment [A utomated message] The = Eosinophils #) system whic h generated this result tra nsmitted reference range : <=0.5. The reference r carolynn was not used to int erpret this result as normal/abnormal . [facility] SystemCyjkkcwSCTMYCJUZN8842-86-32 13:12:00 Test Item Value Reference Range Interpretation Comments Basophils # (test code 0.1 See_Comment [Aut omated message] The = Basophils #) system which generated this result tra nsmitted reference range : <=0.2. The reference r carolynn was not used to int erpret this result as normal/abnormal . [facility] SystemDobqgjmHHGDMABPPM4562-56-63 13:12:00 Test Item Value Reference Range Interpretation Comments Hgb (test code = Hgb) 13.9 14.0-18.0 [facility] SystemWavyctfSAMBQPKAQG4721-14-03 13:12:00 Test Item Value Reference Range Interpretation Comments RBC (test code = RBC) 4.57 4.70-6.10 [facility] SystemYenkcnaEWRAJSNUOQ1965-92-73 13:12:00 Test Item Value Reference Range Interpretation Comments WBC (test code = WBC) 6.1 3.7-10.4 [facility] SystemMyapiapKDIVGRYMMO8656-68-53 13:12:00 Test Item Value Reference Range Interpretation Comments Hct (test code = Hct) 40.6 42.0-54.0 [facility] SystemMjqnlwmVAJKPENQMK2519-30-78 13:12:00 Test Item Value Reference Range Interpretation Comments MCH (test code = MCH) 30.4 pg 27.0-31.0 [facility]LvhycfoCEPMTKUCKK1521-59-14 13:12:00 Test Item Value Reference Range Interpretation Comments MCV (test code = MCV) 88.9 80.0-94.0 [facility]aultKuecznpUGENSUYINF6534-05-53 13:12:00 Test Item Value Reference Range Interpretation Comments MCHC (test code = MCHC) 34.2 32.0-36.0 [facility]aultXjpxppkCWWDLKHHOJ7132-61-63 13:12:00 Test Item Value Reference Range Interpretation Comments Platelet (test code = Platelet) 196 133-450 [facility] DallasJrxhrbxQWTUYNOOHF6084-78-09 13:12:00 Test Item Value Reference Range Interpretation Comments RDW (test code = RDW) 13.7 11.5-14.5 [facility]aultYawwlilBBPBOEOOKZ6775-24-34 13:12:00 Test Item Value Reference Range Interpretation Comments MPV (test code = MPV) 8.5 7.4-10.4 [facility] DallasPdepwvqBMILFL8261-53-66 13:12:00 Test Item Value Reference Range Interpretation Comments HDL (test code = HDL) 75 [facility]landGihpemkRTTJUL0888-86-90 13:12:00 Test Item Value Reference Range Interpretation Comments Chol (test code = Chol) 143 [facility] DallasLhtqsrcBAQANQ8226-29-42 13:12:00 Test Item Value Reference Range Interpretation Comments VLDL (test code = VLDL) 19 [facility] DallasOdtbbbxOCAURO3840-28-22 13:12:00 Test Item Value Reference Range Interpretation Comments Trig (test code = Trig) 94 [facility] DallasQrexkysEFZBBL1486-04-33 13:12:00 Test Item Value Reference Range Interpretation Comments LDL (Calculated) (test code = LDL 49 (Calculated)) [facility] DallasSqpyueoKTPCFU3222-80-25 13:12:00 Test Item Value Reference Range Interpretation Comments CHD Risk (test code = CHD Risk) 1.91 4.00-7.30 [facility] KDFKSYNBE0418-20-16 13:12:00 Test Item Value Reference Range Interpretation Comments Hgb A1C (test code = Hgb A1C) 6.9 [facility] AND [id number] 13:12:00 Test Item Value Reference Range Interpretation Comments UA Color (test code = UA Color) Ltyellow [facility] AND [id number] 13:12:00 Test Item Value Reference Range Interpretation Comments UA Urobilinogen (test code = UA <=1.0 mg/dL 0.1-1.0 Urobilinogen) [facility] AND [id number] 13:12:00 Test Item Value Reference Range Interpretation Comments UA Ketones (test code = UA Negative mg/dL Ketones) [facility] AND [id number] 13:12:00 Test Item Value Reference Range Interpretation Comments UA Glucose (test code = UA Negative mg/dL Glucose) [facility] AND [id number] 13:12:00 Test Item Value Reference Range Interpretation Comments UA Protein (test code = UA Protein) 100 mg/dL [facility] AND [id number] 13:12:00 Test Item Value Reference Range Interpretation Comments UA Leuk Est (test Negative (09/28/15 8:12 code = UA Leuk Est) AM) [facility] AND [id number] 13:12:00 Test Item Value Reference Range Interpretation Comments UA Nitrite (test code Negative (09/28/15 8:12 = UA Nitrite) AM) [facility] AND [id number] 13:12:00 Test Item Value Reference Range Interpretation Comments UA Bili (test code = Negative *NA*(09/28/15 UA Bili) 8:12 AM) [facility] AND [id number] 13:12:00 Test Item Value Reference Range Interpretation Comments UA Sq Epi (test code = UA Sq Epi) None Seen [facility] AND [id number] 13:12:00 Test Item Value Reference Range Interpretation Comments UA Blood (test code = Negative (09/28/15 8:12 UA Blood) AM) [facility] AND [id number] 13:12:00 Test Item Value Reference Range Interpretation Comments UA pH (test code = UA pH) 6.0 5.0-8.0 [facility] AND [id number] 13:12:00 Test Item Value Reference Range Interpretation Comments UA Spec Grav (test code = UA Spec Grav) 1.010 [facility] AND [id number] 13:12:00 Test Item Value Reference Range Interpretation Comments UA Turbidity (test code = Clear (09/28/15 8:12 UA Turbidity) AM) [facility] [id number] 13:12:00 Test Item Value Reference Range Interpretation Comments U Alb/Crea (test code = U Alb/Crea) 712.8 [facility]URINE IMIH0070-15-44 13:12:00 Test Item Value Reference Range Interpretation Comments U Microalb (test code = U Microalb) 345.0 [facility] MWTV6140-67-80 13:12:00 Test Item Value Reference Range Interpretation Comments U Creatinine (test code = U Creatinine) 48.40 [facility] [id number] 13:12:00 Test Item Value Reference Range Interpretation Comments Uric Acid (test code = Uric Acid) 7.9 3.8-8.0 [facility]landBararznJPIDCPSCVRSR9048-19-08 13:12:00 Test Item Value Reference Range Interpretation Comments AGAP (test code = AGAP) 11.5 10.0-20.0 [facility]landQdkeuazMIILUTAEJMJO0790-36-50 13:12:00 Test Item Value Reference Range Interpretation Comments B/C Ratio (test code = B/C Ratio) 20 6-25 [facility] PasoNswqgrwOCBUGWPSSKFW7285-96-35 13:12:00 Test Item Value Reference Range Interpretation Comments Globulin (test code = Globulin) 3.2 2.0-4.0 [facility]landHsfrgvjUKZYKZLCIFGO1878-36-50 13:12:00 Test Item Value Reference Range Interpretation Comments A/G Ratio (test code = A/G Ratio) 1.4 0.7-1.6 [facility]landBkntxvwTHUREDLZNJSU5462-30-85 13:12:00 Test Item Value Reference Range Interpretation Comments eGFR (test code = eGFR) 49 [facility] PasoKqtcnbmZIYMLCATMDUN3431-80-11 13:12:00 Test Item Value Reference Range Interpretation Comments Bili Total (test code = Bili Total) 0.5 0.2-1.3 [facility]landFwdaecsTBGCZEMAFSKJ3984-12-13 13:12:00 Test Item Value Reference Range Interpretation Comments Sodium Lvl (test code = Sodium Lvl) 140 135-145 [facility] PearlandMskygvtKSKQWUCHJOHQ6459-51-75 13:12:00 Test Item Value Reference Range Interpretation Comments Creatinine Lvl (test code = Creatinine 1.48 0.50-1.40 Lvl) [facility]QczywrzCUAIKHCPCXNO0296-63-85 13:12:00 Test Item Value Reference Range Interpretation Comments BUN (test code = BUN) 29 7-22 [facility] HospitalRbsfinzXMGZJXHEUVCB4340-00-62 13:12:00 Test Item Value Reference Range Interpretation Comments Glucose Lvl (test code = Glucose Lvl) 123 70-99 [facility] HospitalYjuevjnAHLBOKKUSGYZ7932-76-80 13:12:00 Test Item Value Reference Range Interpretation Comments ALT (test code = ALT) 20 See_Comment [Auto mated message] The system which ge nerated this result transmit todd reference range : <=65. The reference range was not used to interpr et this result as kimberli l/abnormal. [facility] HospitalYltxzotCQBFJMDSXIGZ5705-62-77 13:12:00 Test Item Value Reference Range Interpretation Comments AST (test code = AST) 9 See_Comment [Auto mated message] The system which ge nerated this result transmit todd reference range : <=37. The reference range was not used to interpr et this result as kimberli l/abnormal. [facility] HospitalZyujjnaYFPFWGSYVYKZ2020-41-02 13:12:00 Test Item Value Reference Range Interpretation Comments Alk Phos (test code = Alk Phos) 76 39-136 [facility] HospitalVfzurcqMLGTJWJLIHRQ5436-16-74 13:12:00 Test Item Value Reference Range Interpretation Comments Calcium Lvl (test code = Calcium Lvl) 9.2 8.5-10.5 [facility] HospitalSflfbjeXHNZTRZUTULS0050-23-33 13:12:00 Test Item Value Reference Range Interpretation Comments Albumin Lvl (test code = Albumin Lvl) 4.4 3.5-5.0 [facility] HospitalTdbwmfdKHKNJKRFEWSW2911-61-19 13:12:00 Test Item Value Reference Range Interpretation Comments Potassium Lvl (test code = Potassium 4.5 3.5-5.1 Lvl) [facility] HospitalXikrdrxYKGYEBNKFQVY7251-72-70 13:12:00 Test Item Value Reference Range Interpretation Comments Total Protein (test code = Total 7.6 6.4-8.4 Protein) [facility] HospitalJnhyalhZPUDLFZOLZIE7270-72-54 13:12:00 Test Item Value Reference Range Interpretation Comments CO2 (test code = CO2) 28 24-32 [facility] HospitalKsmgpouYSSLBPPKABXS0143-78-81 13:12:00 Test Item Value Reference Range Interpretation Comments Chloride Lvl (test code = Chloride Lvl) 105 95-109 [facility] SystemHedcvvqVJULXFYMNR9207-65-52 13:12:00 Test Item Value Reference Range Interpretation Comments Segs (test code = Segs) 60.0 45.0-75.0 [facility] SystemHlfhlnlKTGXZNUGYM8787-79-35 13:12:00 Test Item Value Reference Range Interpretation Comments Eosinophils (test code = 3.3 See_Comment [A utomated message] The Eosinophils) system which ge nerated this result tra nsmitted reference range : <=4.0. The reference r carolynn was not used to int erpret this result as normal/abnormal . [facility] SystemHywhyreKRDBQYXUQJ4743-09-41 13:12:00 Test Item Value Reference Range Interpretation Comments Monocytes (test code = Monocytes) 8.1 2.0-12.0 [facility] SystemRunpjuwHYKGJMOUDS8840-91-48 13:12:00 Test Item Value Reference Range Interpretation Comments Lymphocytes (test code = Lymphocytes) 27.4 20.0-40.0 [facility] SystemTdoogeqPEZEZCNLJW4624-47-57 13:12:00 Test Item Value Reference Range Interpretation Comments Monocytes # (test code 0.5 See_Comment [Aut omated message] The = Monocytes #) system which generated this result tra nsmitted reference range : <=0.8. The reference r carolynn was not used to int erpret this result as normal/abnormal . [facility] SystemWefgiwfIIKFDFOWCG5632-13-00 13:12:00 Test Item Value Reference Range Interpretation Comments Basophils (test code = 1.2 See_Comment [Aut omated message] The Basophils) system which ge nerated this result tra nsmitted reference range : <=1.0. The reference r carolynn was not used to int erpret this result as normal/abnormal . [facility] SystemYozjxhdWUGVQBBQJW4860-13-37 13:12:00 Test Item Value Reference Range Interpretation Comments Lymphocytes # (test code = Lymphocytes 1.7 1.0-5.5 #) [facility] SystemJhaywyqTXKWYNZVKN4548-81-26 13:12:00 Test Item Value Reference Range Interpretation Comments Segs-Bands # (test code = Segs-Bands #) 3.6 1.5-8.1 [facility] SystemAiuiwieHDGVMOXGQP2280-49-02 13:12:00 Test Item Value Reference Range Interpretation Comments Eosinophils # (test code 0.2 See_Comment [A utomated message] The = Eosinophils #) system whic h generated this result tra nsmitted reference range : <=0.5. The reference r carolynn was not used to int erpret this result as normal/abnormal . [facility] SystemAibucehFOHUMOACQS3600-44-23 13:12:00 Test Item Value Reference Range Interpretation Comments Basophils # (test code 0.1 See_Comment [Aut omated message] The = Basophils #) system which generated this result tra nsmitted reference range : <=0.2. The reference r carolynn was not used to int erpret this result as normal/abnormal . [facility] SystemPilzrsoUJWTFRPRPZ9847-83-63 13:12:00 Test Item Value Reference Range Interpretation Comments Hgb (test code = Hgb) 13.9 14.0-18.0 [facility] SystemYhxdgdsUGWFEBXIIC7823-05-88 13:12:00 Test Item Value Reference Range Interpretation Comments RBC (test code = RBC) 4.57 4.70-6.10 [facility] SystemElsofdvTZWKVRPRIY0419-21-91 13:12:00 Test Item Value Reference Range Interpretation Comments WBC (test code = WBC) 6.1 3.7-10.4 [facility] SystemCworiukSLVOAIZPPU5970-07-09 13:12:00 Test Item Value Reference Range Interpretation Comments Hct (test code = Hct) 40.6 42.0-54.0 [facility] SystemFwbljmpRQLKBNELIN2190-60-88 13:12:00 Test Item Value Reference Range Interpretation Comments MCH (test code = MCH) 30.4 pg 27.0-31.0 [facility] SystemXycgikaWITBACVGVY7683-04-56 13:12:00 Test Item Value Reference Range Interpretation Comments MCV (test code = MCV) 88.9 80.0-94.0 [facility] SystemJygvxjsNGXPDIIFPK7727-39-21 13:12:00 Test Item Value Reference Range Interpretation Comments MCHC (test code = MCHC) 34.2 32.0-36.0 [facility] SystemAkfhjltYNOHTOLRZT0911-79-10 13:12:00 Test Item Value Reference Range Interpretation Comments Platelet (test code = Platelet) 196 133-450 [facility] SystemNencansFDYPOCFYUC4412-99-92 13:12:00 Test Item Value Reference Range Interpretation Comments RDW (test code = RDW) 13.7 11.5-14.5 [facility] SystemMedxsqjEDMOOYDPZA4736-75-25 13:12:00 Test Item Value Reference Range Interpretation Comments MPV (test code = MPV) 8.5 7.4-10.4 [facility] DallasDqmxbehBDZXFN8714-76-79 13:12:00 Test Item Value Reference Range Interpretation Comments HDL (test code = HDL) 75 [facility] DallasJfwjdbyCLJFYW2524-11-29 13:12:00 Test Item Value Reference Range Interpretation Comments Chol (test code = Chol) 143 [facility] DallasDpyurbxWTOULR8035-68-97 13:12:00 Test Item Value Reference Range Interpretation Comments VLDL (test code = VLDL) 19 [facility] DallasNwfsadhXQYQDZ8807-38-51 13:12:00 Test Item Value Reference Range Interpretation Comments Trig (test code = Trig) 94 [facility] DallasFytihvvANTWVE4375-28-12 13:12:00 Test Item Value Reference Range Interpretation Comments LDL (Calculated) (test code = LDL 49 (Calculated)) [facility] DallasVpjtgawRTVMJX5016-66-31 13:12:00 Test Item Value Reference Range Interpretation Comments CHD Risk (test code = CHD Risk) 1.91 4.00-7.30 [facility] UNIAHLYUQ2454-00-81 13:12:00 Test Item Value Reference Range Interpretation Comments Hgb A1C (test code = Hgb A1C) 6.9 [facility] AND [id number] 13:12:00 Test Item Value Reference Range Interpretation Comments UA Color (test code = UA Color) Ltyellow [facility] AND [id number] 13:12:00 Test Item Value Reference Range Interpretation Comments UA Urobilinogen (test code = UA <=1.0 mg/dL 0.1-1.0 Urobilinogen) [facility] AND [id number] 13:12:00 Test Item Value Reference Range Interpretation Comments UA Ketones (test code = UA Negative mg/dL Ketones) [facility] AND [id number] 13:12:00 Test Item Value Reference Range Interpretation Comments UA Glucose (test code = UA Negative mg/dL Glucose) [facility] AND [id number] 13:12:00 Test Item Value Reference Range Interpretation Comments UA Protein (test code = UA Protein) 100 mg/dL [facility] AND [id number] 13:12:00 Test Item Value Reference Range Interpretation Comments UA Leuk Est (test Negative (7/27/16 8:12 code = UA Leuk Est) AM) [facility] [id number] 13:12:00 Test Item Value Reference Range Interpretation Comments UA Nitrite (test code Negative (09/28/15 8:12 = UA Nitrite) AM) [facility] [id number] 13:12:00 Test Item Value Reference Range Interpretation Comments UA Bili (test code = Negative *NA*(09/28/15 UA Bili) 8:12 AM) [facility] [id number] 13:12:00 Test Item Value Reference Range Interpretation Comments UA Sq Epi (test code = UA Sq Epi) None [facility] [id number] 13:12:00 Test Item Value Reference Range Interpretation Comments UA Blood (test code = Negative (09/28/15 8:12 UA Blood) AM) [facility] [id number] 13:12:00 Test Item Value Reference Range Interpretation Comments UA pH (test code = UA pH) 6.0 5.0-8.0 [facility] AND [id number] 13:12:00 Test Item Value Reference Range Interpretation Comments UA Spec Grav (test code = UA Spec Grav) 1.010 [facility] [id number] 13:12:00 Test Item Value Reference Range Interpretation Comments UA Turbidity (test code = Clear (09/28/15 8:12 UA Turbidity) AM) [facility] [id number] 13:12:00 Test Item Value Reference Range Interpretation Comments U Alb/Crea (test code = U Alb/Crea) 712.8 [facility] [id number] 13:12:00 Test Item Value Reference Range Interpretation Comments U Microalb (test code = U Microalb) 345.0 [facility] [id number] 13:12:00 Test Item Value Reference Range Interpretation Comments U Creatinine (test code = U Creatinine) 48.40 [facility]CHE[facility] [id number] 13:12:00 Test Item Value Reference Range Interpretation Comments Uric Acid (test code = Uric Acid) 7.9 3.8-8.0 [facility] KirixqrJJOHYBMUVOYR2584-05-52 13:12:00 Test Item Value Reference Range Interpretation Comments AGAP (test code = AGAP) 11.5 10.0-20.0 [facility]GMUKDPCBYPS7065-18-64 13:12:00 Test Item Value Reference Range Interpretation Comments B/C Ratio (test code = B/C Ratio) 20 6-25 [facility] HospitalVomzipfLDVKSZBUQJXF6905-62-05 13:12:00 Test Item Value Reference Range Interpretation Comments Globulin (test code = Globulin) 3.2 2.0-4.0 [facility] HospitalHctvllbUQIRLBUUKVMU0723-14-27 13:12:00 Test Item Value Reference Range Interpretation Comments A/G Ratio (test code = A/G Ratio) 1.4 0.7-1.6 [facility] HospitalBlhxttkTXKKFMJPTEZR6173-86-67 13:12:00 Test Item Value Reference Range Interpretation Comments eGFR (test code = eGFR) 49 [facility] HospitalYcqscctAHTDPZGDIVLY6512-95-25 13:12:00 Test Item Value Reference Range Interpretation Comments Bili Total (test code = Bili Total) 0.5 0.2-1.3 [facility] HospitalJngcfukBEEHYSTXCANP9091-61-65 13:12:00 Test Item Value Reference Range Interpretation Comments Sodium Lvl (test code = Sodium Lvl) 140 135-145 [facility] HospitalZcexuhkWGRERZNFADKV5199-96-41 13:12:00 Test Item Value Reference Range Interpretation Comments Creatinine Lvl (test code = Creatinine 1.48 0.50-1.40 Lvl) [facility] HospitalDspifitRQUAUHDHSLUV4311-35-19 13:12:00 Test Item Value Reference Range Interpretation Comments BUN (test code = BUN) 29 7-22 [facility] HospitalZnuboyxYKTUIPUJRSGR6815-62-06 13:12:00 Test Item Value Reference Range Interpretation Comments Glucose Lvl (test code = Glucose Lvl) 123 70-99 [facility] HospitalWqveztuJIELNUBXFNBM9955-61-95 13:12:00 Test Item Value Reference Range Interpretation Comments ALT (test code = ALT) 20 See_Comment [Auto mated message] The system which ge nerated this result transmit todd reference range : <=65. The reference range was not used to interpr et this result as kimberli l/abnormal. [facility] HospitalLqvbanwJOMPBAJHNRDL9492-56-05 13:12:00 Test Item Value Reference Range Interpretation Comments AST (test code = AST) 9 See_Comment [Auto mated message] The system which ge nerated this result transmit todd reference range : <=37. The reference range was not used to interpr et this result as kimberli l/abnormal. [facility] HospitalOvfdujrEHKDKICVKIMZ2027-21-33 13:12:00 Test Item Value Reference Range Interpretation Comments Alk Phos (test code = Alk Phos) 76 39-136 [facility] HospitalXuapbkgHUTWDGUPWVZR8682-24-32 13:12:00 Test Item Value Reference Range Interpretation Comments Calcium Lvl (test code = Calcium Lvl) 9.2 8.5-10.5 [facility] HospitalJdawomzJHLJNZMUPJLL1852-27-02 13:12:00 Test Item Value Reference Range Interpretation Comments Albumin Lvl (test code = Albumin Lvl) 4.4 3.5-5.0 [facility] HospitalMjvtalgGPGTHJCSXEMA6838-13-33 13:12:00 Test Item Value Reference Range Interpretation Comments Potassium Lvl (test code = Potassium 4.5 3.5-5.1 Lvl) [facility] HospitalTdzreqzZTYNRFSWNJVP9308-56-42 13:12:00 Test Item Value Reference Range Interpretation Comments Total Protein (test code = Total 7.6 6.4-8.4 Protein) [facility] HospitalQjoelfiJAPLGWOZYUHO9567-44-58 13:12:00 Test Item Value Reference Range Interpretation Comments CO2 (test code = CO2) 28 24-32 [facility] HospitalBeaimkbDNJOARDKNBEF6003-00-39 13:12:00 Test Item Value Reference Range Interpretation Comments Chloride Lvl (test code = Chloride Lvl) 105 95-109 [facility] SystemZwsqwbzYWMEISYATE8717-64-50 13:12:00 Test Item Value Reference Range Interpretation Comments Segs (test code = Segs) 60.0 45.0-75.0 [facility] SystemQacpnpjPNOTWRYAWR9886-64-00 13:12:00 Test Item Value Reference Range Interpretation Comments Eosinophils (test code = 3.3 See_Comment [A utomated message] The Eosinophils) system which ge nerated this result tra nsmitted reference range : <=4.0. The reference r carolynn was not used to int erpret this result as normal/abnormal . [facility] SystemNjzgwtiBRHQZGUPJP8464-41-18 13:12:00 Test Item Value Reference Range Interpretation Comments Monocytes (test code = Monocytes) 8.1 2.0-12.0 [facility] SystemPsctsdwQCMEDHFEHX0026-06-31 13:12:00 Test Item Value Reference Range Interpretation Comments Lymphocytes (test code = Lymphocytes) 27.4 20.0-40.0 [facility] SystemLiawwlvVWNBREWTWH8629-29-57 13:12:00 Test Item Value Reference Range Interpretation Comments Monocytes # (test code 0.5 See_Comment [Aut omated message] The = Monocytes #) system which generated this result tra nsmitted reference range : <=0.8. The reference r carolynn was not used to int erpret this result as normal/abnormal . [facility] SystemCkfjpyfVRSORWCMVO0562-75-21 13:12:00 Test Item Value Reference Range Interpretation Comments Basophils (test code = 1.2 See_Comment [Aut omated message] The Basophils) system which ge nerated this result tra nsmitted reference range : <=1.0. The reference r carolynn was not used to int erpret this result as normal/abnormal . [facility] SystemTfhsktiDOSMYGWATZ3411-70-34 13:12:00 Test Item Value Reference Range Interpretation Comments Lymphocytes # (test code = Lymphocytes 1.7 1.0-5.5 #) [facility] SystemPrbjqlwPJYUUYNCZG7525-32-83 13:12:00 Test Item Value Reference Range Interpretation Comments Segs-Bands # (test code = Segs-Bands #) 3.6 1.5-8.1 [facility] SystemKozxdplAVPBJMFLOQ7401-46-74 13:12:00 Test Item Value Reference Range Interpretation Comments Eosinophils # (test code 0.2 See_Comment [A utomated message] The = Eosinophils #) system whic h generated this result tra nsmitted reference range : <=0.5. The reference r carolynn was not used to int erpret this result as normal/abnormal . [facility] SystemDbihxthZDRMQCJHJO4748-26-84 13:12:00 Test Item Value Reference Range Interpretation Comments Basophils # (test code 0.1 See_Comment [Aut omated message] The = Basophils #) system which generated this result tra nsmitted reference range : <=0.2. The reference r carolynn was not used to int erpret this result as normal/abnormal . [facility] SystemZawyzrxLTPBRDDOZG2200-43-87 13:12:00 Test Item Value Reference Range Interpretation Comments Hgb (test code = Hgb) 13.9 14.0-18.0 [facility] SystemWfyymthDZGBDRUBFA8726-32-11 13:12:00 Test Item Value Reference Range Interpretation Comments RBC (test code = RBC) 4.57 4.70-6.10 [facility] SystemMfnxodjLKJGLSHFRO9698-95-33 13:12:00 Test Item Value Reference Range Interpretation Comments WBC (test code = WBC) 6.1 3.7-10.4 [facility] SystemEuvtenbJDQYZDJFDS6624-12-07 13:12:00 Test Item Value Reference Range Interpretation Comments Hct (test code = Hct) 40.6 42.0-54.0 [facility] SystemUsdvbftYKQHPKRQXZ4262-33-57 13:12:00 Test Item Value Reference Range Interpretation Comments MCH (test code = MCH) 30.4 pg 27.0-31.0 [facility] SystemGalwhzbXFFEXHKSWW9838-87-87 13:12:00 Test Item Value Reference Range Interpretation Comments MCV (test code = MCV) 88.9 80.0-94.0 [facility] SystemDqxvfqrXJCCZXVUUV5740-30-58 13:12:00 Test Item Value Reference Range Interpretation Comments MCHC (test code = MCHC) 34.2 32.0-36.0 [facility] SystemAdlvzhxSIKKFWIEBP2117-71-88 13:12:00 Test Item Value Reference Range Interpretation Comments Platelet (test code = Platelet) 196 133-450 [facility] SystemIeuuqsyCIHGVAAACA7418-93-20 13:12:00 Test Item Value Reference Range Interpretation Comments RDW (test code = RDW) 13.7 11.5-14.5 [facility] SystemLrkksmdIALIPSSOXB4155-62-05 13:12:00 Test Item Value Reference Range Interpretation Comments MPV (test code = MPV) 8.5 7.4-10.4 [facility] HospitalDbcbxqoQZMPSN8195-50-68 13:12:00 Test Item Value Reference Range Interpretation Comments HDL (test code = HDL) 75 [facility] HospitalLmmtsehMEMTUD7472-98-51 13:12:00 Test Item Value Reference Range Interpretation Comments Chol (test code = Chol) 143 [facility] HospitalEnewkxnRROFQM0218-12-12 13:12:00 Test Item Value Reference Range Interpretation Comments VLDL (test code = VLDL) 19 [facility] HospitalQuqyazcRORCIO3762-76-48 13:12:00 Test Item Value Reference Range Interpretation Comments Trig (test code = Trig) 94 [facility] HospitalOxnauxqWBUGHY9152-57-27 13:12:00 Test Item Value Reference Range Interpretation Comments LDL (Calculated) (test code = LDL 49 (Calculated)) [facility] DallasGxinbewTUSQQF2251-71-02 13:12:00 Test Item Value Reference Range Interpretation Comments CHD Risk (test code = CHD Risk) 1.91 4.00-7.30 [facility] MQNZQDXFO4053-84-96 13:12:00 Test Item Value Reference Range Interpretation Comments Hgb A1C (test code = Hgb A1C) 6.9 [facility] AND [id number] 13:12:00 Test Item Value Reference Range Interpretation Comments UA Color (test code = UA Color) Ltyellow [facility] AND [id number] 13:12:00 Test Item Value Reference Range Interpretation Comments UA Urobilinogen (test code = UA <=1.0 mg/dL 0.1-1.0 Urobilinogen) [facility] AND [id number] 13:12:00 Test Item Value Reference Range Interpretation Comments UA Ketones (test code = UA Negative mg/dL Ketones) [facility] AND QPGHB4633-03-32 13:12:00 Test Item Value Reference Range Interpretation Comments UA Glucose (test code = UA Negative mg/dL Glucose) [facility] AND [id number] 13:12:00 Test Item Value Reference Range Interpretation Comments UA Protein (test code = UA Protein) 100 mg/dL [facility] AND [id number] 13:12:00 Test Item Value Reference Range Interpretation Comments UA Leuk Est (test Negative (09/28/15 8:12 code = UA Leuk Est) AM) [facility] AND [id number] 13:12:00 Test Item Value Reference Range Interpretation Comments UA Nitrite (test code Negative (09/28/15 8:12 = UA Nitrite) AM) [facility] AND [id number] 13:12:00 Test Item Value Reference Range Interpretation Comments UA Bili (test code = Negative *NA*(09/28/15 UA Bili) 8:12 AM) [facility] AND [id number] 13:12:00 Test Item Value Reference Range Interpretation Comments UA Sq Epi (test code = UA Sq Epi) None Seen [facility] AND [id number] 13:12:00 Test Item Value Reference Range Interpretation Comments UA Blood (test code = Negative (09/28/15 8:12 UA Blood) AM) [facility] [id number] 13:12:00 Test Item Value Reference Range Interpretation Comments UA pH (test code = UA pH) 6.0 5.0-8.0 [facility] [id number] 13:12:00 Test Item Value Reference Range Interpretation Comments UA Spec Grav (test code = UA Spec Grav) 1.010 [facility] [id number] 13:12:00 Test Item Value Reference Range Interpretation Comments UA Turbidity (test code = Clear (09/28/15 8:12 UA Turbidity) AM) [facility] [id number] 13:12:00 Test Item Value Reference Range Interpretation Comments U Alb/Crea (test code = U Alb/Crea) 712.8 [facility] [id number] 13:12:00 Test Item Value Reference Range Interpretation Comments U Microalb (test code = U Microalb) 345.0 [facility] [id number] 13:12:00 Test Item Value Reference Range Interpretation Comments U Creatinine (test code = U Creatinine) 48.40 [facility]CHE[facility] [id number] 13:12:00 Test Item Value Reference Range Interpretation Comments Uric Acid (test code = Uric Acid) 7.9 3.8-8.0 [facility] PasoLjksivjFLSVBYEFNSEH3284-68-62 13:12:00 Test Item Value Reference Range Interpretation Comments AGAP (test code = AGAP) 11.5 10.0-20.0 [facility]VdmwxyhOITIOGZPMICU1348-63-03 13:12:00 Test Item Value Reference Range Interpretation Comments B/C Ratio (test code = B/C Ratio) 20 6-25 [facility] PasoKrkjkapXRUOVHUCSHXT2314-27-39 13:12:00 Test Item Value Reference Range Interpretation Comments Globulin (test code = Globulin) 3.2 2.0-4.0 [facility]XssoyjzAUDVYVUYXLPN2553-64-75 13:12:00 Test Item Value Reference Range Interpretation Comments A/G Ratio (test code = A/G Ratio) 1.4 0.7-1.6 [facility] HospitalCcolhrgYOEEEIJDNSZE2498-45-98 13:12:00 Test Item Value Reference Range Interpretation Comments eGFR (test code = eGFR) 49 [facility] HospitalZqezmghLUVOSXUWDNYW3614-66-66 13:12:00 Test Item Value Reference Range Interpretation Comments Bili Total (test code = Bili Total) 0.5 0.2-1.3 [facility] HospitalLcwtqupHPMGGLVEZJUE7482-07-56 13:12:00 Test Item Value Reference Range Interpretation Comments Sodium Lvl (test code = Sodium Lvl) 140 135-145 [facility] HospitalYwcdvgtTPEEPDIMMOKK2401-37-12 13:12:00 Test Item Value Reference Range Interpretation Comments Creatinine Lvl (test code = Creatinine 1.48 0.50-1.40 Lvl) [facility] HospitalEblhygkHVDHPMKCIOQN8981-33-66 13:12:00 Test Item Value Reference Range Interpretation Comments BUN (test code = BUN) 29 7-22 [facility] HospitalReurqpfEQYWBMUMNKDX3594-66-62 13:12:00 Test Item Value Reference Range Interpretation Comments Glucose Lvl (test code = Glucose Lvl) 123 70-99 [facility] HospitalNtqicplFKRAVFIUJAGX0009-36-01 13:12:00 Test Item Value Reference Range Interpretation Comments ALT (test code = ALT) 20 See_Comment [Auto mated message] The system which ge nerated this result transmit todd reference range : <=65. The reference range was not used to interpr et this result as kimberli l/abnormal. [facility] HospitalXbcighzPCHHKOWOTSUN6958-89-97 13:12:00 Test Item Value Reference Range Interpretation Comments AST (test code = AST) 9 See_Comment [Auto mated message] The system which ge nerated this result transmit todd reference range : <=37. The reference range was not used to interpr et this result as kimberli l/abnormal. [facility] HospitalHwdkmtnLNDLYKVQQFGA7889-37-56 13:12:00 Test Item Value Reference Range Interpretation Comments Alk Phos (test code = Alk Phos) 76 39-136 [facility] HospitalJamdcycJSIULOYDGDFO4484-56-49 13:12:00 Test Item Value Reference Range Interpretation Comments Calcium Lvl (test code = Calcium Lvl) 9.2 8.5-10.5 [facility] HospitalKriugkbCNBUIWYRNSDC9685-87-70 13:12:00 Test Item Value Reference Range Interpretation Comments Albumin Lvl (test code = Albumin Lvl) 4.4 3.5-5.0 [facility] HospitalCsfynkaTEZGTQNOEGEB0495-13-53 13:12:00 Test Item Value Reference Range Interpretation Comments Potassium Lvl (test code = Potassium 4.5 3.5-5.1 Lvl) [facility] HospitalQnxdrukTRMYWKRKVHWP4138-96-36 13:12:00 Test Item Value Reference Range Interpretation Comments Total Protein (test code = Total 7.6 6.4-8.4 Protein) [facility] HospitalRfznmnrGFEPYHCARMHY6304-27-58 13:12:00 Test Item Value Reference Range Interpretation Comments CO2 (test code = CO2) 28 24-32 [facility] HospitalZzkdoybVHSEOUOTPUXJ0100-30-73 13:12:00 Test Item Value Reference Range Interpretation Comments Chloride Lvl (test code = Chloride Lvl) 105 95-109 [facility] SystemUzdwvzjTPGWMIYBRS9762-08-93 13:12:00 Test Item Value Reference Range Interpretation Comments Segs (test code = Segs) 60.0 45.0-75.0 [facility] SystemFpgucbcISNCSERBUY2788-53-27 13:12:00 Test Item Value Reference Range Interpretation Comments Eosinophils (test code = 3.3 See_Comment [A utomated message] The Eosinophils) system which ge nerated this result tra nsmitted reference range : <=4.0. The reference r carolynn was not used to int erpret this result as normal/abnormal . [facility] SystemNqgwtpbAUELPCBOAU9599-06-12 13:12:00 Test Item Value Reference Range Interpretation Comments Monocytes (test code = Monocytes) 8.1 2.0-12.0 [facility] SystemQmdxxntCCJFQADFOQ1201-24-44 13:12:00 Test Item Value Reference Range Interpretation Comments Lymphocytes (test code = Lymphocytes) 27.4 20.0-40.0 [facility] SystemOeyyjrbIRNPPORJDK8751-07-72 13:12:00 Test Item Value Reference Range Interpretation Comments Monocytes # (test code 0.5 See_Comment [Aut omated message] The = Monocytes #) system which generated this result tra nsmitted reference range : <=0.8. The reference r carolynn was not used to int erpret this result as normal/abnormal . [facility] SystemIajuaiaWWGQOYBTMM2268-44-74 13:12:00 Test Item Value Reference Range Interpretation Comments Basophils (test code = 1.2 See_Comment [Aut omated message] The Basophils) system which ge nerated this result tra nsmitted reference range : <=1.0. The reference r carolynn was not used to int erpret this result as normal/abnormal . [facility] SystemXhwocngSXVQKYCOMF4742-79-26 13:12:00 Test Item Value Reference Range Interpretation Comments Lymphocytes # (test code = Lymphocytes 1.7 1.0-5.5 #) [facility] SystemNpuwlnwJMBEOIIKDV6042-42-66 13:12:00 Test Item Value Reference Range Interpretation Comments Segs-Bands # (test code = Segs-Bands #) 3.6 1.5-8.1 [facility] SystemVmhyursRSMBIKHKOM6006-54-71 13:12:00 Test Item Value Reference Range Interpretation Comments Eosinophils # (test code 0.2 See_Comment [A utomated message] The = Eosinophils #) system whic h generated this result tra nsmitted reference range : <=0.5. The reference r carolynn was not used to int erpret this result as normal/abnormal . [facility] SystemCrdledoQSUHYMFIRE7452-89-83 13:12:00 Test Item Value Reference Range Interpretation Comments Basophils # (test code 0.1 See_Comment [Aut omated message] The = Basophils #) system which generated this result tra nsmitted reference range : <=0.2. The reference r carolynn was not used to int erpret this result as normal/abnormal . [facility] SystemUfnakrzTXIPGJOHPB4499-10-04 13:12:00 Test Item Value Reference Range Interpretation Comments Hgb (test code = Hgb) 13.9 14.0-18.0 [facility] SystemAzishbzGVDCJAEJSW7138-40-28 13:12:00 Test Item Value Reference Range Interpretation Comments RBC (test code = RBC) 4.57 4.70-6.10 [facility] SystemOktcuzwYTNMAUVSTM9053-34-13 13:12:00 Test Item Value Reference Range Interpretation Comments WBC (test code = WBC) 6.1 3.7-10.4 [facility] SystemIaxedkuKKJFQDAFWI2070-42-63 13:12:00 Test Item Value Reference Range Interpretation Comments Hct (test code = Hct) 40.6 42.0-54.0 [facility] SystemBnbbkivYWYUNCGZCQ4046-34-70 13:12:00 Test Item Value Reference Range Interpretation Comments MCH (test code = MCH) 30.4 pg 27.0-31.0 [facility] SystemUqruiwsFFNGKDOQLE0275-81-75 13:12:00 Test Item Value Reference Range Interpretation Comments MCV (test code = MCV) 88.9 80.0-94.0 [facility]PgctmmsUQJELVQNPN8744-42-30 13:12:00 Test Item Value Reference Range Interpretation Comments MCHC (test code = MCHC) 34.2 32.0-36.0 [facility]aultJvflawyVQIWNYSCOL7397-13-78 13:12:00 Test Item Value Reference Range Interpretation Comments Platelet (test code = Platelet) 196 133-450 [facility]aultSgtrxnhZNEUUZIUKI9934-16-47 13:12:00 Test Item Value Reference Range Interpretation Comments RDW (test code = RDW) 13.7 11.5-14.5 [facility]aultMdfutqaEZDGOUCJOW7278-31-76 13:12:00 Test Item Value Reference Range Interpretation Comments MPV (test code = MPV) 8.5 7.4-10.4 [facility] DallasLqlrkppPSJSWC3934-99-42 13:12:00 Test Item Value Reference Range Interpretation Comments HDL (test code = HDL) 75 [facility]XeqvjvfEWUPXY9088-73-03 13:12:00 Test Item Value Reference Range Interpretation Comments Chol (test code = Chol) 143 [facility] DallasJppyibsYKPRVG4043-91-82 13:12:00 Test Item Value Reference Range Interpretation Comments VLDL (test code = VLDL) 19 [facility] DallasAjfggspEXOIWM3831-30-61 13:12:00 Test Item Value Reference Range Interpretation Comments Trig (test code = Trig) 94 [facility] DallasAhezjusDTUTWF4772-97-82 13:12:00 Test Item Value Reference Range Interpretation Comments LDL (Calculated) (test code = LDL 49 (Calculated)) [facility] DallasSpzulaiOMYMTP3909-53-43 13:12:00 Test Item Value Reference Range Interpretation Comments CHD Risk (test code = CHD Risk) 1.91 4.00-7.30 [facility] FOVWXNQPT5734-41-84 13:12:00 Test Item Value Reference Range Interpretation Comments Hgb A1C (test code = Hgb A1C) 6.9 [facility] AND [id number] 13:12:00 Test Item Value Reference Range Interpretation Comments UA Color (test code = UA Color) Ltyellow [facility] AND [id number] 13:12:00 Test Item Value Reference Range Interpretation Comments UA Urobilinogen (test code = UA <=1.0 mg/dL 0.1-1.0 Urobilinogen) [facility] AND [id number] 13:12:00 Test Item Value Reference Range Interpretation Comments UA Ketones (test code = UA Negative mg/dL Ketones) [facility] AND [id number] 13:12:00 Test Item Value Reference Range Interpretation Comments UA Glucose (test code = UA Negative mg/dL Glucose) [facility] AND EYONK5230-20-80 13:12:00 Test Item Value Reference Range Interpretation Comments UA Protein (test code = UA Protein) 100 mg/dL [facility] AND [id number] 13:12:00 Test Item Value Reference Range Interpretation Comments UA Leuk Est (test Negative (09/28/15 8:12 code = UA Leuk Est) AM) [facility] AND [id number] 13:12:00 Test Item Value Reference Range Interpretation Comments UA Nitrite (test code Negative (09/28/15 8:12 = UA Nitrite) AM) [facility] AND [id number] 13:12:00 Test Item Value Reference Range Interpretation Comments UA Bili (test code = Negative *NA*(09/28/15 UA Bili) 8:12 AM) [facility] AND [id number] 13:12:00 Test Item Value Reference Range Interpretation Comments UA Sq Epi (test code = UA Sq Epi) None Seen [facility] AND [id number] 13:12:00 Test Item Value Reference Range Interpretation Comments UA Blood (test code = Negative (09/28/15 8:12 UA Blood) AM) [facility] AND [id number] 13:12:00 Test Item Value Reference Range Interpretation Comments UA pH (test code = UA pH) 6.0 5.0-8.0 [facility] AND [id number] 13:12:00 Test Item Value Reference Range Interpretation Comments UA Spec Grav (test code = UA Spec Grav) 1.010 [facility] AND [id number] 13:12:00 Test Item Value Reference Range Interpretation Comments UA Turbidity (test code = Clear (09/28/15 8:12 UA Turbidity) AM) [facility] [id number] 13:12:00 Test Item Value Reference Range Interpretation Comments U Alb/Crea (test code = U Alb/Crea) 712.8 [facility] [id number] 13:12:00 Test Item Value Reference Range Interpretation Comments U Microalb (test code = U Microalb) 345.0 [facility] [id number] 13:12:00 Test Item Value Reference Range Interpretation Comments U Creatinine (test code = U Creatinine) 48.40 [facility] [id number] 13:12:00 Test Item Value Reference Range Interpretation Comments Uric Acid (test code = Uric Acid) 7.9 3.8-8.0 [facility]landHapytgrRBHELXAWNOOJ3908-88-12 13:12:00 Test Item Value Reference Range Interpretation Comments AGAP (test code = AGAP) 11.5 10.0-20.0 [facility]landVplcntmXJGBZDEREKYZ2862-62-87 13:12:00 Test Item Value Reference Range Interpretation Comments B/C Ratio (test code = B/C Ratio) 20 6-25 [facility]RorjyjnRCNIIEGUFGMJ5843-03-40 13:12:00 Test Item Value Reference Range Interpretation Comments Globulin (test code = Globulin) 3.2 2.0-4.0 [facility] PasoEchyfctPSVFVQSJZCWT2243-30-53 13:12:00 Test Item Value Reference Range Interpretation Comments A/G Ratio (test code = A/G Ratio) 1.4 0.7-1.6 [facility] PasoKqagbouNBPEOULFWRTQ7351-66-10 13:12:00 Test Item Value Reference Range Interpretation Comments eGFR (test code = eGFR) 49 [facility] PasoCklbhxmVTYGASXWJHRO4482-88-90 13:12:00 Test Item Value Reference Range Interpretation Comments Bili Total (test code = Bili Total) 0.5 0.2-1.3 [facility] PasoZzusodyZIJWCXVTGVRO5738-71-78 13:12:00 Test Item Value Reference Range Interpretation Comments Sodium Lvl (test code = Sodium Lvl) 140 135-145 [facility] PasoWmlqcjeWPRNASUALCUE9361-49-17 13:12:00 Test Item Value Reference Range Interpretation Comments Creatinine Lvl (test code = Creatinine 1.48 0.50-1.40 Lvl) [facility] PasoVrfdfkbUPJLZGUSXOIJ0180-17-83 13:12:00 Test Item Value Reference Range Interpretation Comments BUN (test code = BUN) 29 7-22 [facility]PTRKL[facility]AEGAWR5812-37-63 13:12:00 Test Item Value Reference Range Interpretation Comments Glucose Lvl (test code = Glucose Lvl) 123 70-99 [facility] HospitalZvnqsetOUYGPPPTKXSV8534-51-20 13:12:00 Test Item Value Reference Range Interpretation Comments ALT (test code = ALT) 20 <=65 [facility] HospitalZsdxcqaHQMGBNQRRZLI3745-07-46 13:12:00 Test Item Value Reference Range Interpretation Comments AST (test code = AST) 9 <=37 [facility] HospitalBofdkvlTHLIUIAJQAHE5889-39-69 13:12:00 Test Item Value Reference Range Interpretation Comments Alk Phos (test code = Alk Phos) 76 39-136 [facility] HospitalDtztdomUOXBFSJHCPFD0754-35-19 13:12:00 Test Item Value Reference Range Interpretation Comments Calcium Lvl (test code = Calcium Lvl) 9.2 8.5-10.5 [facility] HospitalWtcwrslOSGXHHJSRRZM1565-80-01 13:12:00 Test Item Value Reference Range Interpretation Comments Albumin Lvl (test code = Albumin Lvl) 4.4 3.5-5.0 [facility] HospitalOxvvfoqBKUUYPVVMOAA0229-37-73 13:12:00 Test Item Value Reference Range Interpretation Comments Potassium Lvl (test code = Potassium 4.5 3.5-5.1 Lvl) [facility] HospitalSvwruptXCYPGOCGLCUJ9587-92-77 13:12:00 Test Item Value Reference Range Interpretation Comments Total Protein (test code = Total 7.6 6.4-8.4 Protein) [facility] HospitalGpdekjwNIZQAILBCRCF7154-30-33 13:12:00 Test Item Value Reference Range Interpretation Comments CO2 (test code = CO2) 28 24-32 [facility] HospitalKynmzhjLVAQYIOYXRYU8952-63-14 13:12:00 Test Item Value Reference Range Interpretation Comments Chloride Lvl (test code = Chloride Lvl) 105 95-109 [facility]OhfbsmjRKUDWPMDNV8322-82-71 13:12:00 Test Item Value Reference Range Interpretation Comments Segs (test code = Segs) 60.0 45.0-75.0 [facility] SystemAsnksxpXCGHULFXYS0564-48-65 13:12:00 Test Item Value Reference Range Interpretation Comments Eosinophils (test code = Eosinophils) 3.3 <=4.0 [facility] SystemFshtrwpOQCHCJIGZD4522-28-81 13:12:00 Test Item Value Reference Range Interpretation Comments Monocytes (test code = Monocytes) 8.1 2.0-12.0 [facility] SystemNyhdhbbRDXROEQPVG9419-50-03 13:12:00 Test Item Value Reference Range Interpretation Comments Lymphocytes (test code = Lymphocytes) 27.4 20.0-40.0 [facility] SystemPwlsdypSMTSRFLNCU6112-39-70 13:12:00 Test Item Value Reference Range Interpretation Comments Monocytes # (test code = Monocytes #) 0.5 <=0.8 [facility] SystemPypyxptTSEMJPLOJL8935-15-16 13:12:00 Test Item Value Reference Range Interpretation Comments Basophils (test code = Basophils) 1.2 <=1.0 [facility] SystemOweodarZWYUEJSJIB1729-92-27 13:12:00 Test Item Value Reference Range Interpretation Comments Lymphocytes # (test code = Lymphocytes 1.7 1.0-5.5 #) [facility] SystemUhsdusxNZYYHXXFMN2490-99-72 13:12:00 Test Item Value Reference Range Interpretation Comments Segs-Bands # (test code = Segs-Bands #) 3.6 1.5-8.1 [facility] SystemKmvurwuHFUJROEJTY6609-51-94 13:12:00 Test Item Value Reference Range Interpretation Comments Eosinophils # (test code = Eosinophils 0.2 <=0.5 #) [facility] SystemEmerczgNTABQVBDRZ2672-74-80 13:12:00 Test Item Value Reference Range Interpretation Comments Basophils # (test code = Basophils #) 0.1 <=0.2 [facility] SystemDnwyabzCKCFDVPELH3851-01-18 13:12:00 Test Item Value Reference Range Interpretation Comments Hgb (test code = Hgb) 13.9 14.0-18.0 [facility] SystemLqngxurMVFUGFBICX2880-68-52 13:12:00 Test Item Value Reference Range Interpretation Comments RBC (test code = RBC) 4.57 4.70-6.10 [facility] SystemXsidpooXNTOVSUEES5361-39-06 13:12:00 Test Item Value Reference Range Interpretation Comments WBC (test code = WBC) 6.1 3.7-10.4 [facility] SystemAvvzuxfWOPDOSBIPS0556-17-64 13:12:00 Test Item Value Reference Range Interpretation Comments Hct (test code = Hct) 40.6 42.0-54.0 [facility] SystemVfpqwvlYXZALMDLYR3689-30-97 13:12:00 Test Item Value Reference Range Interpretation Comments MCH (test code = MCH) 30.4 pg 27.0-31.0 [facility]JocgwzfZMQZOMOCIS1055-31-29 13:12:00 Test Item Value Reference Range Interpretation Comments MCV (test code = MCV) 88.9 80.0-94.0 [facility]aultOkfskwyJJRKRIGSPW7482-28-00 13:12:00 Test Item Value Reference Range Interpretation Comments MCHC (test code = MCHC) 34.2 32.0-36.0 [facility] SaultOydekzeRUDIFVAUUH5028-37-58 13:12:00 Test Item Value Reference Range Interpretation Comments Platelet (test code = Platelet) 196 133-450 [facility] SaultBhnlgzbATCADQAQFD3831-30-35 13:12:00 Test Item Value Reference Range Interpretation Comments RDW (test code = RDW) 13.7 11.5-14.5 [facility] SaultIcrnvlaOUBVNWXUSN9620-12-71 13:12:00 Test Item Value Reference Range Interpretation Comments MPV (test code = MPV) 8.5 7.4-10.4 [facility] DallasWdreabyTTPYLI2486-55-78 13:12:00 Test Item Value Reference Range Interpretation Comments HDL (test code = HDL) 75 [facility]landRwpkhnwVNDECV8485-51-58 13:12:00 Test Item Value Reference Range Interpretation Comments Chol (test code = Chol) 143 [facility] DallasMvzafvgKZPOSW2938-17-17 13:12:00 Test Item Value Reference Range Interpretation Comments VLDL (test code = VLDL) 19 [facility] DallasEdikybcIYQMFT6493-79-64 13:12:00 Test Item Value Reference Range Interpretation Comments Trig (test code = Trig) 94 [facility] DallasSwerjvjOYXMBX0789-46-68 13:12:00 Test Item Value Reference Range Interpretation Comments LDL (Calculated) (test code = LDL 49 (Calculated)) [facility]landPumigjjQDWFDQ3502-40-08 13:12:00 Test Item Value Reference Range Interpretation Comments CHD Risk (test code = CHD Risk) 1.91 4.00-7.30 [facility] XSRSELKGB5769-13-31 13:12:00 Test Item Value Reference Range Interpretation Comments Hgb A1C (test code = Hgb A1C) 6.9 [facility] AND [id number] 13:12:00 Test Item Value Reference Range Interpretation Comments UA Color (test code = UA Color) Ltyellow [facility] AND [id number] 13:12:00 Test Item Value Reference Range Interpretation Comments UA Urobilinogen (test code = UA <=1.0 mg/dL 0.1-1.0 Urobilinogen) [facility] AND [id number] 13:12:00 Test Item Value Reference Range Interpretation Comments UA Ketones (test code = UA Negative mg/dL Ketones) [facility] AND [id number] 13:12:00 Test Item Value Reference Range Interpretation Comments UA Glucose (test code = UA Negative mg/dL Glucose) [facility] AND [id number] 13:12:00 Test Item Value Reference Range Interpretation Comments UA Protein (test code = UA Protein) 100 mg/dL [facility] AND [id number] 13:12:00 Test Item Value Reference Range Interpretation Comments UA Leuk Est (test Negative (09/28/15 8:12 code = UA Leuk Est) AM) [facility] AND [id number] 13:12:00 Test Item Value Reference Range Interpretation Comments UA Nitrite (test code Negative (09/28/15 8:12 = UA Nitrite) AM) [facility] AND [id number] 13:12:00 Test Item Value Reference Range Interpretation Comments UA Bili (test code = Negative *NA*(09/28/15 UA Bili) 8:12 AM) [facility] AND [id number] 13:12:00 Test Item Value Reference Range Interpretation Comments UA Sq Epi (test code = UA Sq Epi) None Seen [facility] AND [id number] 13:12:00 Test Item Value Reference Range Interpretation Comments UA Blood (test code = Negative (09/28/15 8:12 UA Blood) AM) [facility] AND [id number] 13:12:00 Test Item Value Reference Range Interpretation Comments UA pH (test code = UA pH) 6.0 5.0-8.0 [facility] AND [id number] 13:12:00 Test Item Value Reference Range Interpretation Comments UA Spec Grav (test code = UA Spec Grav) 1.010 [facility] AND [id number] 13:12:00 Test Item Value Reference Range Interpretation Comments UA Turbidity (test code = Clear (09/28/15 8:12 UA Turbidity) AM) [facility] [id number] 13:12:00 Test Item Value Reference Range Interpretation Comments U Alb/Crea (test code = U Alb/Crea) 712.8 [facility] LVCD9503-70-84 13:12:00 Test Item Value Reference Range Interpretation Comments U Microalb (test code = U Microalb) 345.0 [facility] HJQJ4350-68-39 13:12:00 Test Item Value Reference Range Interpretation Comments U Creatinine (test code = U Creatinine) 48.40 [facility]CHE[facility] [id number] 13:12:00 Test Item Value Reference Range Interpretation Comments Uric Acid (test code = Uric Acid) 7.9 3.8-8.0 [facility]landVktuqndIZCKKTLETLKD9264-83-18 13:12:00 Test Item Value Reference Range Interpretation Comments AGAP (test code = AGAP) 11.5 10.0-20.0 [facility]landSpvxnwwJABOUKJDAREU2857-63-88 13:12:00 Test Item Value Reference Range Interpretation Comments B/C Ratio (test code = B/C Ratio) 20 6-25 [facility]EyxcqdmKXQMLZPESBQI2427-24-41 13:12:00 Test Item Value Reference Range Interpretation Comments Globulin (test code = Globulin) 3.2 2.0-4.0 [facility]landQjwrnqvJWCMINXTTMSE5228-84-46 13:12:00 Test Item Value Reference Range Interpretation Comments A/G Ratio (test code = A/G Ratio) 1.4 0.7-1.6 [facility]landEucqhntAKFXNOQFEYWO8955-66-28 13:12:00 Test Item Value Reference Range Interpretation Comments eGFR (test code = eGFR) 49 [facility]landKobtntuBYETIUYEFSKN2429-21-98 13:12:00 Test Item Value Reference Range Interpretation Comments Bili Total (test code = Bili Total) 0.5 0.2-1.3 [facility]landPhwxtsjTKBOCDQOUTID6027-92-66 13:12:00 Test Item Value Reference Range Interpretation Comments Sodium Lvl (test code = Sodium Lvl) 140 135-145 [facility] PearlandIwbrkyaADCHVNAJBLRY1632-50-32 13:12:00 Test Item Value Reference Range Interpretation Comments Creatinine Lvl (test code = Creatinine 1.48 0.50-1.40 Lvl) [place] 252926-07-27 13:12:00 Test Item Value Reference Range Interpretation Comments BUN (test code = BUN) 29 7-22 [facility]UcwjgsvZALOTFJMGLLS2453-29-03 13:12:00 Test Item Value Reference Range Interpretation Comments Glucose Lvl (test code = Glucose Lvl) 123 70-99 [facility] HospitalYhlzqrhEUEFBGOXJDIT8785-16-94 13:12:00 Test Item Value Reference Range Interpretation Comments ALT (test code = ALT) 20 <=65 [facility] HospitalJceqzmuFCJLCNOBRUAZ8679-42-23 13:12:00 Test Item Value Reference Range Interpretation Comments AST (test code = AST) 9 <=37 [facility] HospitalWzlgpesIXRXMMWNBNBC9447-53-95 13:12:00 Test Item Value Reference Range Interpretation Comments Alk Phos (test code = Alk Phos) 76 39-136 [facility] HospitalCqrophjALGJGMGRFPDE0522-71-67 13:12:00 Test Item Value Reference Range Interpretation Comments Calcium Lvl (test code = Calcium Lvl) 9.2 8.5-10.5 [facility] HospitalVoeqwniNIZALSKCJJKH4086-77-77 13:12:00 Test Item Value Reference Range Interpretation Comments Albumin Lvl (test code = Albumin Lvl) 4.4 3.5-5.0 [facility] HospitalNmqkdnbSZHGYXLNJKOX9842-80-93 13:12:00 Test Item Value Reference Range Interpretation Comments Potassium Lvl (test code = Potassium 4.5 3.5-5.1 Lvl) [facility] HospitalBvbsiyxGHPYNASTSKNO5562-17-13 13:12:00 Test Item Value Reference Range Interpretation Comments Total Protein (test code = Total 7.6 6.4-8.4 Protein) [facility] HospitalQbagatoBZEQKYBCZWGC4775-93-60 13:12:00 Test Item Value Reference Range Interpretation Comments CO2 (test code = CO2) 28 24-32 [facility] HospitalHudwvsbKRSBHWVQVXWZ2200-66-04 13:12:00 Test Item Value Reference Range Interpretation Comments Chloride Lvl (test code = Chloride Lvl) 105 95-109 [facility] SystemDfhwddbBYFAVUJRSI0086-96-13 13:12:00 Test Item Value Reference Range Interpretation Comments Segs (test code = Segs) 60.0 45.0-75.0 [facility] SystemKaevnqkMNNVZTMXNF1732-08-60 13:12:00 Test Item Value Reference Range Interpretation Comments Eosinophils (test code = Eosinophils) 3.3 <=4.0 [facility] SystemYeikmlxMXXVOHMULC0654-79-52 13:12:00 Test Item Value Reference Range Interpretation Comments Monocytes (test code = Monocytes) 8.1 2.0-12.0 [facility] SystemZvrobfqOMOVNVSTYC5895-24-61 13:12:00 Test Item Value Reference Range Interpretation Comments Lymphocytes (test code = Lymphocytes) 27.4 20.0-40.0 [facility] SystemJwjnwoxNMMSJTWVSS7357-17-74 13:12:00 Test Item Value Reference Range Interpretation Comments Monocytes # (test code = Monocytes #) 0.5 <=0.8 [facility] SystemGeoanrpYEOJBDUHOT3409-47-53 13:12:00 Test Item Value Reference Range Interpretation Comments Basophils (test code = Basophils) 1.2 <=1.0 [facility] SystemSzbxuyqHMOMZDHZDM1182-49-51 13:12:00 Test Item Value Reference Range Interpretation Comments Lymphocytes # (test code = Lymphocytes 1.7 1.0-5.5 #) [facility] SystemUrbapglMMRAHIUPXB3084-16-61 13:12:00 Test Item Value Reference Range Interpretation Comments Segs-Bands # (test code = Segs-Bands #) 3.6 1.5-8.1 [facility] SystemRkksflbVPOLDZTEPP9219-83-53 13:12:00 Test Item Value Reference Range Interpretation Comments Eosinophils # (test code = Eosinophils 0.2 <=0.5 #) [facility] SystemQinewakRZXCRFZMAG8715-81-48 13:12:00 Test Item Value Reference Range Interpretation Comments Basophils # (test code = Basophils #) 0.1 <=0.2 [facility] SystemWkogbriVKBVQCZUBV5344-48-66 13:12:00 Test Item Value Reference Range Interpretation Comments Hgb (test code = Hgb) 13.9 14.0-18.0 [facility] SystemOeyxsrtTCMELPJWVY2083-02-03 13:12:00 Test Item Value Reference Range Interpretation Comments RBC (test code = RBC) 4.57 4.70-6.10 [facility] SystemBfhgwouIVZVWJUWMX8118-59-43 13:12:00 Test Item Value Reference Range Interpretation Comments WBC (test code = WBC) 6.1 3.7-10.4 [facility] SystemEublkktDAQSXZNFLQ1019-10-69 13:12:00 Test Item Value Reference Range Interpretation Comments Hct (test code = Hct) 40.6 42.0-54.0 [facility] DallasKhjfspvOZVGQZLDYH6173-73-95 13:12:00 Test Item Value Reference Range Interpretation Comments MCH (test code = MCH) 30.4 pg 27.0-31.0 [facility]aultLenlmpjNLCMRWOXDB1033-76-25 13:12:00 Test Item Value Reference Range Interpretation Comments MCV (test code = MCV) 88.9 80.0-94.0 [facility]aultPienbniKIVCWXICRV6639-71-33 13:12:00 Test Item Value Reference Range Interpretation Comments MCHC (test code = MCHC) 34.2 32.0-36.0 [facility] SaultAomiwrvXFDLAWOCIZ1268-27-77 13:12:00 Test Item Value Reference Range Interpretation Comments Platelet (test code = Platelet) 196 133-450 [facility] SaultWkxwawkGZINPWMXGA4386-60-67 13:12:00 Test Item Value Reference Range Interpretation Comments RDW (test code = RDW) 13.7 11.5-14.5 [facility]aultWffdvurVAYKBAGLKF9684-94-90 13:12:00 Test Item Value Reference Range Interpretation Comments MPV (test code = MPV) 8.5 7.4-10.4 [facility] DallasKqwvyumPEPAAL1726-83-86 13:12:00 Test Item Value Reference Range Interpretation Comments HDL (test code = HDL) 75 [facility] DallasXenhjsgJXCXNT5488-07-99 13:12:00 Test Item Value Reference Range Interpretation Comments Chol (test code = Chol) 143 [facility] DallasLtrgivtNCEFFA9529-08-86 13:12:00 Test Item Value Reference Range Interpretation Comments VLDL (test code = VLDL) 19 [facility] DallasGqspbubVXIISY7249-35-56 13:12:00 Test Item Value Reference Range Interpretation Comments Trig (test code = Trig) 94 [facility] DallasZxfnfynAPFUGP8825-65-19 13:12:00 Test Item Value Reference Range Interpretation Comments LDL (Calculated) (test code = LDL 49 (Calculated)) [facility] DallasSwwfoyqDYQTXH5669-43-10 13:12:00 Test Item Value Reference Range Interpretation Comments CHD Risk (test code = CHD Risk) 1.91 4.00-7.30 [facility] HQVMRZLWW1964-71-10 13:12:00 Test Item Value Reference Range Interpretation Comments Hgb A1C (test code = Hgb A1C) 6.9 [facility] AND [id number] 13:12:00 Test Item Value Reference Range Interpretation Comments UA Color (test code = UA Color) Ltyellow [facility] AND JHLZY9788-04-52 13:12:00 Test Item Value Reference Range Interpretation Comments UA Urobilinogen (test code = UA <=1.0 mg/dL 0.1-1.0 Urobilinogen) [facility] AND [id number] 13:12:00 Test Item Value Reference Range Interpretation Comments UA Ketones (test code = UA Negative mg/dL Ketones) [facility] AND [id number] 13:12:00 Test Item Value Reference Range Interpretation Comments UA Glucose (test code = UA Negative mg/dL Glucose) [facility] AND [id number] 13:12:00 Test Item Value Reference Range Interpretation Comments UA Protein (test code = UA Protein) 100 mg/dL [facility] AND [id number] 13:12:00 Test Item Value Reference Range Interpretation Comments UA Leuk Est (test Negative (09/28/15 8:12 code = UA Leuk Est) AM) [facility] AND [id number] 13:12:00 Test Item Value Reference Range Interpretation Comments UA Nitrite (test code Negative (09/28/15 8:12 = UA Nitrite) AM) [facility] AND [id number] 13:12:00 Test Item Value Reference Range Interpretation Comments UA Bili (test code = Negative *NA*(09/28/15 UA Bili) 8:12 AM) [facility] AND [id number] 13:12:00 Test Item Value Reference Range Interpretation Comments UA Sq Epi (test code = UA Sq Epi) None Seen [facility] AND [id number] 13:12:00 Test Item Value Reference Range Interpretation Comments UA Blood (test code = Negative (09/28/15 8:12 UA Blood) AM) [facility] AND [id number] 13:12:00 Test Item Value Reference Range Interpretation Comments UA pH (test code = UA pH) 6.0 5.0-8.0 [facility] AND [id number] 13:12:00 Test Item Value Reference Range Interpretation Comments UA Spec Grav (test code = UA Spec Grav) 1.010 [facility] AND [id number] 13:12:00 Test Item Value Reference Range Interpretation Comments UA Turbidity (test code = Clear (09/28/15 8:12 UA Turbidity) AM) Ivana Garcia HACZ6438-02-10 13:12:00 Test Item Value Reference Range Interpretation Comments U Alb/Crea (test code = U Alb/Crea) 712.8 Ivana Garcia XUEZ2208-38-50 13:12:00 Test Item Value Reference Range Interpretation Comments U Microalb (test code = U Microalb) 345.0 [facility] Radha [id number] 13:12:00 Test Item Value Reference Range Interpretation Comments U Creatinine (test code = U Creatinine) 48.40 [facility] Consult Notes Date/Time Note Provider Source 2022-10-22 [id number]:00[facility] 13:[facility] Order(s): CONSULT ADULT PHYSICAL PT THERAPY Patient agreeable to working with physical therapy. Patient met up in chair.Recommend nursing staff utilize supervision to safely assist patient with mobility out of the bed or chair.PHYSICAL THERAPY EVALUATIONConsult received, chart reviewed and evaluation complete this date. Patient is referred to PT for evaluation and treatment. Patient is a 72 year old male who presents to hospital for Acute respiratory failure with hypoxia and hypercapnia [J96.01, J96.02] Acute respiratory failure [J96.00]. Discharge Recommendations: Therapy Needs and Potential:Patient would benefit from continued physical therapy services to address: decline in gait and/or balance decreased endurancePatient appears motivated to improve their functional mobility and return to their previous level of function.Patient exhibits limited activity tolerance.Challenges to Home Transition: increased risk of fallsdecreased caregiver availabilityEquipment recommendations:four wheeled walker with seat for community ambulation to utilized seat for rest breaks as needed.Current Functional Status and/or Treatment: AM-PAC 6 Clicks (Raw Score 0=Dependent, 24=Independent; Low function Raw Score 0= Dependent, 32=Independent): Raw score basic mobility 22Tscale score basic mobility 47.4 Bed Mobility:Sitting balance Good Transfers: sit-stand: IndependentStatic/dynamic standing balance: Fair+Ambulation: Assisted patient with ambulation as follows: 80 feet using no device and Supervision.Patient presenting with Step-through gait pattern. Becomes SOB quickly into gait trial. Only able to tolerate 2 mins of ambulation On 1 LPM at rest with SpO2 96%, with activity desaturates to 89% with increased WOB. Patient requests to increase flow to 2 LPM, able to increase SpO2 to 97% within 2 mins while seated.Therapeutic exercise: patient educated in Compensatory techniques/adaptive strategies, Deep breathing, Energy conservation, Fall prevention, and Relaxation/breathing techniques. and patient/caregiver verbalizes understanding of instructions.Given and educated in continued use of IS, importance of OOBTC and short walks with nursing staff for safetyAfter session, patient up in chair with OT present. Call button provided. Rn notified of patient status and participation with PT at the end of session.\\PLAN OF CARE: While in the hospital, PT will follow patient at least 2 times per week,once or twice a day, per patient's tolerance and needs.See below for complete details. 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 - Both Eyes 01/31/2020 Acute respiratory failure with hypoxia 11/07/2019 Lqylf-gz-pdwzxbm kidney injury 11/05/2019 Adhesive capsulitis of left shoulder 04/22/2019 Anxiety Benign prostatic hyperplasia (BPH) with straining on urination 10/21/2020 Cervical spinal stenosis 10/07/2017 Added automatically from request for surgery [id number] Cervicalgia 07/03/2017 Chronic right shoulder pain 04/01/2017 CKD (chronic kidney disease) CKD (chronic kidney disease) stage 3, GFR 30-59 ml/min 07/30/2016 CKD stage 4 due to type 2 diabetes mellitus 11/08/2020 COPD (chronic obstructive pulmonary disease) COPD with acute exacerbation 11/04/2019 Diabetes mellitus type 2 without retinopathy 11/05/2019 Dyslipidemia 07/27/2016 Essential hypertension 07/30/2016 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/15/2020 Gout Gouty arthritis of left foot 03/29/2017 Granuloma present on biopsy of lung 05/22/2017 Needs yearly imaging, bx negative for malignancy HTN (hypertension) Hypothyroidism Lower extremity edema 11/05/2019 Lung mass fungal per biopsy Muscle cramping 11/08/2020 Nephrotic range proteinuria 04/15/2020 Nuclear senile cataract of both eyes 01/31/2020 Osteoarthritis of spine with radiculopathy, cervical region 10/07/2017 Added automatically from request for surgery [id number] Other insomnia 04/01/2017 Postlaminectomy syndrome 12/30/2017 Added automatically from request for surgery [id number] Range of motion deficit 07/03/2017 Right leg pain 11/05/2019 Right upper limb pain 07/03/2017 Sciatic pain, right Spondylosis 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 12/30/2017 Added automatically from request for surgery [id number] Steroid-induced hyperglycemia 02/12/2019 Type 2 diabetes mellitus with diabetic nephropathy, without long-term current use of insulin 03/29/2017 diet controlled Vitamin D deficiency 11/08/2020 PSH: Past Surgical History: Procedure Laterality Date KNEE ARTHROSCOPY Left MEDIAL BRANCH BLOCK 10/24/2017 MEDIAL BRANCH BLOCK (SHX) Right 10/24/2017 Surgeon: Imtiaz Vázquez MD; Location: [facility] Location OTHER neck surgery RADIOFREQUENCY THERMOCOAGULATION 11/28/2017 RADIOFREQUENCY THERMOCOAGULATION Right 11/28/2017 Surgeon: Imtiaz Vázquez MD; Location: [facility] Location RADIOFREQUENCY THERMOCOAGULATION Left 02/06/2018 Surgeon: Imtiaz Vázquez MD; Location: [facility] Location Prior Living Situation: lives alone and in a apartment, downstairsDME: supplemental O2 1-2 LPM prn, canePrior level of Mobility: community ambulation, house hold ambulation, drives, independent ADLs Suspected ischemic or hemorraghic stroke:NoSubjective: agreeable to working with therapyPatient/Family Goals: to get strongerPatient/Family verbalizes understanding of condition: YesPAIN: -Pain Description: constant and dull-Pain Location: diffuse/generalized-Pain rating before treatment: 5, After treatment: no change-Pain Management: Reports taking pain meds and Nursing NotifiedCOMMUNICATIONPrimary Language: Hungarian Able to Verbalize needs: Yes Vision:reading glasses Hearing: mild [place] ORIENTATION/COGNITION:Oriented to: person, place, date/time, and situation Awake: Yes Alert: Yes Dizzy: No Follows Commands: Yes 1-Step Yes Multi-Step Yes Inconsistent: No NEUROLOGICALLight Touch: B plantar aspect of feet decreasedHeel to siegel: intactTone: WNL BALANCE:Sitting: Static: Good Dynamic: Fair+Standing: Static: Fair+ Dynamic: Fair+RANGE OF MOTION: within functional limits bilateral LE, STRENGTH: 4+/5 (Good), bilateral LE except B quads 5/5 ENDURANCE: Fair-, see above SKIN INTEGRITY: intact PROBLEM LIST: Decline in gait, Decreased strength, and Decreased enduranceASSESSMENT: Patient is a 72 year old male seen secondary to the above listed diagnosis. Patient would benefit from continued PT to address the above listed deficits to maximize independence and safety with functional mobility.Rehabilitation Potential: fair Goals: The following goals are to maximize independence and safety with functional mobility to eventually return to prior living situation and prior functional status. Upon discharge, patient and/or family will demonstrate the followin. Independent with ambulation, Feet: 300 using least assistive device. 2. Demonstrate or verbalize understanding of home exercise program in order to continue with their rehab on their own.3. Full 6 MWT completed within 24 hrs of discharge to determine appropriate supplemental O2 level required.Treatment Plan: Gait training, Therapeutic exercise, Equipment needs assessment, Safety education, patient/caregiver education, and Neuromuscular Re-EducationPATIENT EDUCATION: Patient provided with preferred teaching of verbal information on role of PT, plan of care, safety with mobility, HEP. Shows readiness to learn. Verbal instruction teaching provided. Individual is able to read and verbalizes understanding of teaching provided.Total Time Tx Codes in Minutes: 10 minTotal Treatment Time in Minutes: 19 minErmelinda Lentz PT, DPTLicense Number: [id number] [facility] CenterSports [facility] and Rehabilitation [id number] [id number]:31:22Consult [id number] .[id number] for patient [id number] [id number] J Sabbahi PTUT25 Williams Street[id number] [id number]: 31:[id number]|1.2.84 [id number] 2022-10-22 [id number]:54:00Associated Sarah Lui [facility] 13:54:00 Order(s): CONSULT ADULT OCCUPATIONAL [place] O T THERAPY OT GENERAL EVALUATIONConsult received via [employer], EMR reviewed and evaluation completed 10/22/22. Patient referred to occupational therapy for evaluation and treatment secondary to SOB. Patient agreeable to participate in occupational therapy. Patient seen for co-evaluation with Physical Therapist Ermelinda Norton due to anticipated level of care and patient's ability to tolerate therapy. Discharge Recommendations:Therapy Needs and Potential:- Patient would benefit from continued skilled occupational therapy services to address: Decline in basic activities of daily living, Decline in instrumental activities of daily living, Decreased strength, Decreased endurance, and Caregiver training - Patient demonstrates good potential to improve and meet therapy goals with further skilled occupational therapy services.- Patient appears motivated to improve their B/IADLs and return to their previous level of function.- Patient demonstrates ability to tolerate at least 30-60 minutes of active participation in occupational therapy.- Patient exhibits limited activity tolerance.- Patient able to follow commands: 1-step Yes, Multi-step Yes, Inconsistencies NoChallenges to Home Transition:- Requires physical assistance for IADLS- Requires supervision or verbal cues for BADLS- Limited caregiver availability- Increased risk of fallsEquipment Recommendations:Tub transfer benchPLAN OF CARE: At least 2x/week Precautions: Weight bearing status: NAGeneral: PPE Utilized: Gloves and FallBracing: N/ACurrent Occupational Performance and/or Treatment:AM-PAC 6 Clicks (Raw Score 0=Dependent, 24=Independent; Low function Raw Score 0= Dependent, 32=Independent): Feeding: Independent, Grooming: Supervision, with seated rest breaks as neededUB Dressing: Supervision, LB Dressing: Supervision, with simulated B sock don/doffToilet Transfer: Supervision, without device Toileting Hygiene: Supervision, Functional Mobility: Supervision to stand without device and ambulate to/from bathroomSupervision to ambulate in the room x2 reps from bedside chair to doorwayUpon sitting O2 sats dropped to ~90% on 1L O2, patient requested oxygen to be increased to 2L during recovery period Patient/caregiver educated on:Role of OTPatient left sitting upright in bedside chair with call porras in reach. Vital signs stable . Please, see full evaluation below for more detail. 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 - Both Eyes 01/31/2020 Acute respiratory failure with hypoxia 11/07/2019 Quayl-sr-nemdiru kidney injury 11/05/2019 Adhesive capsulitis of left shoulder 04/22/2019 Anxiety Benign prostatic hyperplasia (BPH) with straining on urination 10/21/2020 Cervical spinal stenosis 10/07/2017 Added automatically from request for surgery [id number] Cervicalgia 07/03/2017 Chronic right shoulder pain 04/01/2017 CKD (chronic kidney disease) CKD (chronic kidney disease) stage 3, GFR 30-59 ml/min 07/30/2016 CKD stage 4 due to type 2 diabetes mellitus 11/08/2020 COPD (chronic obstructive pulmonary disease) COPD with acute exacerbation 11/04/2019 Diabetes mellitus type 2 without retinopathy 11/05/2019 Dyslipidemia 07/27/2016 Essential hypertension 07/30/2016 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/15/2020 Gout Gouty arthritis of left foot 03/29/2017 Granuloma present on biopsy of lung 05/22/2017 Needs yearly imaging, bx negative for malignancy HTN (hypertension) Hypothyroidism Lower extremity edema 11/05/2019 Lung mass fungal per biopsy Muscle cramping 11/08/2020 Nephrotic range proteinuria 04/15/2020 Nuclear senile cataract of both eyes 01/31/2020 Osteoarthritis of spine with radiculopathy, cervical region 10/07/2017 Added automatically from request for surgery [id number] Other insomnia 04/01/2017 Postlaminectomy syndrome 12/30/2017 Added automatically from request for surgery [id number] Range of motion deficit 07/03/2017 Right leg pain 11/05/2019 Right upper limb pain 07/03/2017 Sciatic pain, right Spondylosis 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 12/30/2017 Added automatically from request for surgery [id number] Steroid-induced hyperglycemia 02/12/2019 Type 2 diabetes mellitus with diabetic nephropathy, without long-term current use of insulin 03/29/2017 diet controlled Vitamin D deficiency 11/08/2020 PSH: Past Surgical History: Procedure Laterality Date KNEE ARTHROSCOPY Left MEDIAL BRANCH BLOCK 10/24/2017 MEDIAL BRANCH BLOCK (SHX) Right 10/24/2017 Surgeon: Imtiaz Vázquez MD; Location: [facility] Location OTHER neck surgery RADIOFREQUENCY THERMOCOAGULATION 11/28/2017 RADIOFREQUENCY THERMOCOAGULATION Right 11/28/2017 Surgeon: Imtiaz Vázquez MD; Location: [facility] Location RADIOFREQUENCY THERMOCOAGULATION Left 02/06/2018 Surgeon: Imtiaz Vázquez MD; Location: [facility] Location PAIN: Pain Location: diffuse/generalizedPain rating before treatment: 5, After treatment: no changePain Management: Reports taking pain meds OCCUPATIONAL ROLES/HOME ENVIRONMENT:Home environment: Lives alone and Downstairs apartment. Brother in law is staying with him right now due to recent illness.Bathroom access: YesBathroom setup: ComboOccupation(s): RetiredFunction prior to admission: Household ambulation, Community ambulation, and Independent with BADLs Suspected ischemic or hemorraghic stroke patient: NoEquipment prior to admission: Straight CanePERFORMANCE SKILLS/FACTORS: UE Muscle Tone: bilateral WNLUE ROM: bilateral AROM WFL UE Strength: SUDEEP UE WFLHand dominance: right Dexterity/Coordination: bilateral Gross motor skills Intact Endurance - Sitting: Fair Standing: Poor+Sitting Balance - Static: Fair+ Dynamic: Fair+Standing: Balance - Static Fair+ Dynamic: Fair+Dizziness: NoSkin Integrity: defer full skin assessment to nursingSensation: bilateral ImpairedOral Motor: WFLCommunication: Able to verbalize needs Yes Other: N/AVision: WFL Yes Other: reading glassesHearing: hard of hearingCOGNITION: Orientation: person, place, date/time, and situationFollows Commands: 1-step Yes Multi-step Yes Inconsistencies NoSafety Awareness/Judgment: GoodPROBLEM LIST: Decreased independence with ADL, Impaired postural control, and Decreased strength/endurance for functional activityREHAB POTENTIAL/PROGNOSIS: goodPATIENT/FAMILY GOALS: "to walk around the room without being winded"TREATMENT/INTERVENTION PLAN: Functional motor treatment, Patient/Caregiver Education, Equipment recommendations, Daily living activities, and Therapeutic exercisesGOAL(S): By discharge, patient will increase independence in daily living skills as follows: 1 Patient will perform simulated tub/shower transfer with independence.2 Patient will perform LB dressing with independence. 3 Patient will complete grooming tasks with independence while standing at the sink.4 Patient will complete toileting hygiene, including clothing management, with independence.5 Patient will increase endurance for functional activity as evidenced by ability to sustain 40 minutes of active participation. 6 Patient/caregiver will verbalize/demonstrate understanding/proficiency in the following home programs: Adaptive equipment , Compensatory techniques/adaptive strategies, Energy conservation, Fall prevention, and General strengtheningPATIENT-FAMILY TEACHINGPatient provided with preferred teaching of verbal information on Role of OT. Shows readiness to learn. Verbal instruction teaching provided. Individual is able to read and verbalizes understanding of teaching provided.Sarah Nye OTR, [facility] HospitalDepartment of Rehab ServicesTotal Timed Treatment Codes: 15 MinTotal Treatment Time: 28 MinPatient Complexity Level Moderate - An occupational therapy evaluation of moderate complexity was completed using the above tests and measures. The following information was obtained: An occupational profile and medical and therapy history, including an expanded review of medical and/or therapy records and additional review of physical, cognitive, or psychosocial history related to current functional performance, Various standardized and non-standardized assessments were used to identify at least 3-5 performance deficits related to physical, cognitive, or psychosocial skills that result in activity limitations and/or participation restrictions, and Clinical decision making of moderate analytic complexity, which includes an analysis of the occupational profile, analysis of data from detailed assessment(s), and consideration of several treatment options. Patient may present with comorbidities that affect occupational performance. Minimal to moderate modification of tasks or assistance (e.g., physical or verbal) with assessment(s) is necessary to enable patient to complete evaluation component. [id number] [id number]:32:10Consult [id number] .[id number] for patient [id number] [id number] M. [place] [address][id number] [id number]: 32:101.2.840.708380.1.72.3.15|1.2.84 [id number] 2022-10-22 [id number]:26:28Associated ATHLETIC FIELD CUSTODIAN-ACUTE CARE [facility] 10:26:28 Order(s): CONSULT CARDIOLOGY-HEART MIDLEVEL PROV IDER FAILURE MEDICAL CONSULTSummary: Increase bumex 0.5 mg BID PO. HF will sign off [facility] HEART FAILURE CONSULTReason for consult: CHFChief complaint: SOBHPI: Ricki Mcclain is a 72 year old male with PMH of chronic HFpEF (50-55%), COPD (on home O2), CKD 4, HTN, HLD, DM type 2, who admitted on 10/19/2022 with SOB. Of note, pt recently admitted with LLL pneumonia and COPD exacerbation 10/05/22 on IV ABX and d/c to rehab on 10/09/22. SUBJECTIVE: patient sitting up in the chair, reports feeling better, SOB improved. He was on home O2- now wearing NC O2 1L/min. He denies chest pain or dizziness. 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 - Both Eyes 01/31/2020 Acute respiratory failure with hypoxia 11/07/2019 Vdaca-ck-xwagltd kidney injury 11/05/2019 Adhesive capsulitis of left shoulder 04/22/2019 Anxiety Benign prostatic hyperplasia (BPH) with straining on urination 10/21/2020 Cervical spinal stenosis 10/07/2017 Added automatically from request for surgery [id number] Cervicalgia 07/03/2017 Chronic right shoulder pain 04/01/2017 CKD (chronic kidney disease) CKD (chronic kidney disease) stage 3, GFR 30-59 ml/min 07/30/2016 CKD stage 4 due to type 2 diabetes mellitus 11/08/2020 COPD (chronic obstructive pulmonary disease) COPD with acute exacerbation 11/04/2019 Diabetes mellitus type 2 without retinopathy 11/05/2019 Dyslipidemia 07/27/2016 Essential hypertension 07/30/2016 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/15/2020 Gout Gouty arthritis of left foot 03/29/2017 Granuloma present on biopsy of lung 05/22/2017 Needs yearly imaging, bx negative for malignancy HTN (hypertension) Hypothyroidism Lower extremity edema 11/05/2019 Lung mass fungal per biopsy Muscle cramping 11/08/2020 Nephrotic range proteinuria 04/15/2020 Nuclear senile cataract of both eyes 01/31/2020 Osteoarthritis of spine with radiculopathy, cervical region 10/07/2017 Added automatically from request for surgery [id number] Other insomnia 04/01/2017 Postlaminectomy syndrome 12/30/2017 Added automatically from request for surgery [id number] Range of motion deficit 07/03/2017 Right leg pain 11/05/2019 Right upper limb pain 07/03/2017 Sciatic pain, right Spondylosis 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 12/30/2017 Added automatically from request for surgery [id number] Steroid-induced hyperglycemia 02/12/2019 Type 2 diabetes mellitus with diabetic nephropathy, without long-term current use of insulin 03/29/2017 diet controlled Vitamin D deficiency 11/08/2020 Past Social History: Past Surgical History: Procedure Laterality Date KNEE ARTHROSCOPY Left MEDIAL BRANCH BLOCK 10/24/2017 MEDIAL BRANCH BLOCK (SHX) Right 10/24/2017 Surgeon: Imtiaz Vázquez MD; Location: [facility] OTHER neck surgery RADIOFREQUENCY THERMOCOAGULATION 11/28/2017 RADIOFREQUENCY THERMOCOAGULATION Right 11/28/2017 Surgeon: Imtiaz Vázquez MD; Location: [facility] Location RADIOFREQUENCY THERMOCOAGULATION Left 02/06/2018 Surgeon: Imtiaz Vázquez MD; Location: [facility] Location Past Family History: Family History Problem Relation Age of Onset ID (myocardial infarction) Father age 30s High cholesterol Father Liver failure Father ETOH cirrhosis ID (myocardial infarction) Brother age 69 Cancer Sister unknown type High cholesterol Mother Current Facility-Administered Medications: bumetanide (BUMEX) tablet 0.5 mg, 0.5 mg, Oral, QAM+PM, Radha Vu AGACNP acetaZOLAMIDE (DIAMOX) tablet 250 mg, 250 mg, Oral, DAILY, Jaime Thompson MD, 250 mg at 10/22/22 0847 budesonide-formoteroL (SYMBICORT) 160-4.5 mcg/actuation inhaler 2 Puff, 2 Puff, Inhalation, BID, Joann Vázquez MD, 2 Puff at 10/22/22 0717 cloNIDine (CATAPRES) tablet 0.2 mg, 0.2 mg, Oral, TIDPRN, Delaney Bernstein MD, 0.2 mg at 10/22/22 0634 dextrose 10% (D10W) bolus infusion 250 mL, 250 mL, IV Infusion, PRN - SEE INSTRUCTIONS, Jaime Thompson MD fluticasone propionate 50 mcg/actuation nasal spray 1 Conley, 1 Conley, Nasal, DAILY, Jaime Thompson MD, 1 Conley at 10/22/22 0849 glucagon (GLUCAGEN DIAGNOSTIC KIT) injection 1 mg, 1 mg, Intramuscular, PRN, Jaime Thompson MD levothyroxine (SYNTHROID) tablet 150 mcg, 150 mcg, Oral, QAM-0600, Jaime Thompson MD, 150 mcg at 10/22/22 0634 mirtazapine (REMERON) tablet 7.5 mg, 7.5 mg, Oral, QHS, Jaime Thompson MD, 7.5 mg at 10/21/222031 NIFEdipine ER tablet 30 mg, 30 mg, Oral, DAILY, Delaney Bernstein MD, 30 mg at 10/22/22 0849 pravastatin (PRAVACHOL) tablet 40 mg, 40 mg, Oral, QHS, Jaime Thompson MD, 40 mg at 10/21/22 2032 predniSONE (DELTASONE) tablet 20 mg, 20 mg, Oral, DAILY, Joann Vázquez MD, 20 mg at 10/22/22 0848 Sliding Scale Insulin - Lispro (HumaLOG), , Subcutaneous, TID MEALS+HS, Jaime Thompson MD, 2 Units at 10/22/22 1221 spironolactone (ALDACTONE) tablet 12.5 mg, 12.5 mg, Oral, DAILY, Jaime Thompson MD, 12.5 mg at 10/22/22 0848 tamsulosin (FLOMAX) capsule 0.4 mg, 0.4 mg, Oral, DAILY, Jaime Thompson MD, 0.4 mg at 10/22/22 0848 traZODone (DESYREL) tablet 50 mg, 50 mg, Oral, QHS, Jaime Thompson MD, 50 mg at 10/21/22 2240 HYDROcodone-acetaminophen (NORCO) 10-325 mg tablet 1 tablet, 1 tablet, Oral, Q6HPRN, Fantasma Reaves MD, 1 tablet at 10/22/22 0736 traMADoL (ULTRAM) tablet 50 mg, 50 mg, Oral, Q6HPRN, Gabriel Leblanc MD, 50 mg at 10/20/22 1605 cefTRIAXone (ROCEPHIN) 1,000 mg in NaCl 0.9% (NS) 100 mL MINI-BAG, 1,000 mg, IV Piggyback, Q24H ABXJelly Ali, MD, Stopped at 10/22/22 0051 heparin (porcine) injection 5,000 Units, 5,000 Units, Subcutaneous, Q12H, Gabriel Leblanc MD, 5,000 Units at 10/22/22 0849 ipratropium-albuteroL (DUONEB) 0.5 mg-3 mg(2.5 mg base)/3 mL nebulizer solution 3 mL, 3 mL, Inhalation, QIDPRN, Gabriel Leblanc MD, 3 mL at 10/21/22 0244 REVIEW OF SYSTEMSNegative except HPI.PHYSICAL EXAMINATIONBP 132/74 | Pulse 50 | Temp 36.6 ?C (97.9 ?F) | Resp 16 | Ht 1.829 m (6') | Wt 82.6 kg (182 lb) | SpO2 99% | BMI 24.68 kg/m? General: Well developedHEENT: Normocephalic, atraumatic Neck: No apparent JVDLungs: fine basilar crackles bilaterallyCardio: SB in 50s, No murmurs.Abdomen: Non-distendedGU: tellez cath Rectal: Not examined. Extremities: No edema. Warm to touch Skin: No rashes. Neuro: No grossly focal motor deficit.Echo: 10/21/22Left Ventricle Left ventricle size is normal. Normal wall thickness. Low normal systolic function with a visually estimated EF of 50 - 55%. Unable to assess diastolic function due to arrhythmia. Right Ventricle Right ventricle size is normal. Normal systolic function. Left Atrium Left atrium is mildly dilated. Right Atrium Right atrium size is normal. IVC/SVC IVC diameter is less than or equal to 21 mm and decreases less than 50% during inspiration; therefore the estimated right atrial pressure is intermediate (~8 mmHg). Mitral Valve Mitral valve is normal in structure and function. Trace transvalvular regurgitation. No stenosis. Tricuspid Valve Tricuspid valve is normal size and function. Trace transvalvular regurgitation. No stenosis. Aortic Valve Not well visualized. Trace transvalvular regurgitation. No hemodynamically significant . Pulmonic Valve Not well visualized. Ascending Aorta Normal sized sinus of Valsalva. Pericardium The pericardium is normal. No pericardial effusion. Epicardial fat pad. Coronary angiogram: noneMIBI: 11/01/21IMPRESSIONImpression: No reversible perfusion defect. Borderline reduced ejection fraction andnormal wall thickening.ASSESSMENT AND PLANAcute on chronic diastolic heart failure 50-55%, NYHA IV, Stage C- Exacerbation secondary to current infection - Volume status stable. Elevated NTproBNP 3450 -> increase bumex 0.5 mg BID (was on 0.5 mg QD at home) - MRA: C/w spironolactone 12.5 mg QD - BB: not on, marielena noted tele - Daily BMP + Mag - replete to keep K > 4 and Mag > 2- 2 L fluid restriction, cardiac diet (2 g sodium restriction), accurate I/O- HF will sign off. Please schedule pt to follow up with HF clinic in 1 weeks post discharge. - Remove tellez cath Elevated troponin likely due to demand ischemic - trop trend down - denies chest pain - c/w statin HTN, BP better controlled - c/w nifedipine ER 30 mg QD and meds as above. COPD exacerbation - on home O2 - breathing tx, steroid - managed by pulmonary team Recent pneumonia - on IV ABX - managed by primary team CKD- creatinine trending down 2.0 today -> continue to monitor Discussed A&P with HF faculty Dr. العراقي.Thank you for involving us in patient's care. Please call with questions.Radha Vu NP I spent a total of 30 minutes reviewing the chart and test results, obtaining the history, performing the exam and MDM along with placing orders, coordinating care, charting, and speaking with the patient/family. ssociated attestation - Lucio Dang MD - 10/23/2022 3:47 PM CDT I personally examined the patient and agree with HENRIETTA Orozco's note, assessment and plan as written. I actively participated in the decision-making process. I spent a total time of 50 minutes. The non-overlapping time spent for patient care includes: Pre-Charting, obtaining and/or reviewing separately obtained history (Case Everywhere and our own records), performing a full medically appropriate examination and/or evaluation, counseling and educating patient/family/caregiver, ordering not only medications but tests and/or procedures, independently interpreting prior/current results and communicating them to the patient and/or relative, ordering referrals and/or communicating with other health home care chaplain (when not separately reported), documenting clinical information in the electronic or other health record, and care coordination (not separately reported).- hemodynamically stable- increase bumex to 0.5 mg BID and monitor response- continue current and rest of medications as per primary team- will sign off today. Please contact us if any questionsJOSE Barrington العراقي MD, MSHA, FACC, [facility]PITALAAssistant ProfessorCardiology, Advanced Heart Failure, LVAD & Transplant ServiceDate of service: [id number] [id number]-Ipuvgaqq, Jose [id number] 1Jexsxwghsd-MgvgfqnfLvbvUZB2458-19-2 2T15:47:59Consult [id number] .[id number] for patient vwsu06922-7Xnoperx noteLNNP-ACUTE CARE MIDLEVEL PROVIDERNP-ACUTE CARE MIDLEVEL PROVIDER26 Allen [id number] DEFIA[id number]: 47:[id number]|1.2.84 [id number] 2022-10-19 3610-23-14T12:39:13Formatting of [facility] 09:39:13 this note is different from the original.PULMONARY CC MEDICINE CLS ADMIT H&PPCP: Liborio AlbertongDate of Service: 3CHIEF COMPLAINT: SOBRespiratory failureHISTORY OF PRESENT ORODKXM74 year old male brought to the [facility] ED by EMS for evaluation of SOB. Denies any cough. No chest pain. SOB began this morning. Pt was recently admitted to [facility] 10/05/2022 for management of Pneumonia and just discharged to an LTAC home for further management. He was found to be hypercapnic and was placed on NPPV but did not improve and he was intubated and transferred to our ICU. 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 - Both Eyes 01/31/2020 Acute respiratory failure with hypoxia 11/07/2019 Yvpaj-wa-vxyfblf kidney injury 11/05/2019 Adhesive capsulitis of left shoulder 04/22/2019 Anxiety Benign prostatic hyperplasia (BPH) with straining on urination 10/21/2020 Cervical spinal stenosis 10/07/2017 Added automatically from request for surgery [id number] Cervicalgia 07/03/2017 Chronic right shoulder pain 04/01/2017 CKD (chronic kidney disease) CKD (chronic kidney disease) stage 3, GFR 30-59 ml/min 07/30/2016 CKD stage 4 due to type 2 diabetes mellitus 11/08/2020 COPD (chronic obstructive pulmonary disease) COPD with acute exacerbation 11/04/2019 Diabetes mellitus type 2 without retinopathy 11/05/2019 Dyslipidemia 07/27/2016 Essential hypertension 07/30/2016 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/15/2020 Gout Gouty arthritis of left foot 03/29/2017 Granuloma present on biopsy of lung 05/22/2017 Needs yearly imaging, bx negative for malignancy HTN (hypertension) Hypothyroidism Lower extremity edema 11/05/2019 Lung mass fungal per biopsy Muscle cramping 11/08/2020 Nephrotic range proteinuria 04/15/2020 Nuclear senile cataract of both eyes 01/31/2020 Osteoarthritis of spine with radiculopathy, cervical region 10/07/2017 Added automatically from request for surgery [id number] Other insomnia 04/01/2017 Postlaminectomy syndrome 12/30/2017 Added automatically from request for surgery [id number] Range of motion deficit 07/03/2017 Right leg pain 11/05/2019 Right upper limb pain 07/03/2017 Sciatic pain, right Spondylosis 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 12/30/2017 Added automatically from request for surgery [id number] Steroid-induced hyperglycemia 02/12/2019 Type 2 diabetes mellitus with diabetic nephropathy, without long-term current use of insulin 03/29/2017 diet controlled Vitamin D deficiency 11/08/2020 Past Surgical History: Procedure Laterality Date KNEE ARTHROSCOPY Left MEDIAL BRANCH BLOCK 10/24/2017 MEDIAL BRANCH BLOCK (SHX) Right 10/24/2017 Surgeon: Imtiaz Vázquez MD; Location: [facility] OTHER neck surgery RADIOFREQUENCY THERMOCOAGULATION 11/28/2017 RADIOFREQUENCY THERMOCOAGULATION Right 11/28/2017 Surgeon: Imtiaz Vázquez MD; Location: [facility] RADIOFREQUENCY THERMOCOAGULATION Left 02/06/2018 Surgeon: Imtiaz Vázquez MD; Location: [facility] Family History Problem Relation Age of Onset ID (myocardial infarction) Father age 30s High cholesterol Father Liver failure Father ETOH cirrhosis ID (myocardial infarction) Brother age 69 Cancer Sister unknown type High cholesterol Mother ALLERGIESNo Known AllergiesMEDICATIONSNo current facility-administered medications on file prior to encounter. Current Outpatient Medications on File Prior to Encounter Medication Sig Dispense Refill acetaZOLAMIDE 250 mg tablet Take 1 tablet by mouth in the morning for 30 days. 30 tablet 0 baclofen 5 mg tablet Take 1 tablet by mouth 3 (three) times daily as needed (Muscle spasms). 30 tablet 0 bumetanide 0.5 mg tablet Take 1 tablet by mouth in the morning for 30 days. 30 tablet 0 hydrOXYzine 25 mg tablet Take 1 tablet by mouth every 12 (twelve) hours as needed for Anxiety or Itching. 30 tablet 0 predniSONE 20 mg tablet Take 2 tablets by mouth in the morning. 6 tablet 0 spironolactone 25 mg tablet Take 0.5 tablets by mouth in the morning for 30 days. 15 tablet 0 mirtazapine 7.5 mg tablet Take 1 tablet by mouth at bedtime. 30 tablet 0 NIFEdipine ER 30 mg tablet Take 1 tablet by mouth every morning. albuterol 2.5 mg /3 mL (0.083 %) nebulizer solution Inhale 3 mL every 6 (six) hours as needed for Shortness of Breath or Wheezing. 300 Each 3 ERGOCALCIFEROL, VITAMIN D2, 1,250 mcg (50,000 unit) capsule TAKE 1 CAPSULE BY MOUTH ONCE A WEEK 28 capsule 1 benzonatate (TESSALON PERLES) 100 mg capsule Take 1 capsule by mouth every 8 (eight) hours as needed for Cough. 90 capsule 0 albuterol 90 mcg/actuation inhaler Inhale 2 Puffs every 6 (six) hours as needed for Wheezing or Shortness of Breath. 18 g 4 arformoteroL 15 mcg/2 mL nebulizer solution Use 2 mL as directed in the morning and 2 mL in the evening. 120 mL 2 budesonide 0.5 mg/2 mL nebulizer solution Inhale 2 mL in the morning and 2 mL in the evening. 2 mL 3 cloNIDine 0.2 mg tablet Take 1 tablet by mouth 3 (three) times daily as needed (Uncontrolled Hypertension). Take 1 Tab if BP > 150/90 180 tablet 1 glipiZIDE XL 2.5 mg 24 hr tablet Take 1 tablet by mouth in the morning and 1 tablet in the evening. 180 tablet 1 ipratropium 0.02 % nebulizer solution Inhale 2.5 mL every 4 (four) hours as needed for Wheezing or Shortness of Breath. 100 Each 11 levothyroxine 150 mcg tablet Take 1 tablet by mouth every morning. 90 tablet 1 tamsulosin 0.4 mg 24 hr capsule Take 1 capsule by mouth in the morning. 90 capsule 1 traZODone 50 mg tablet Take 1 tablet by mouth at bedtime. 90 tablet 1 pravastatin 40 mg tablet Take 1 tablet by mouth at bedtime. 90 tablet 1 Magnesium Oxide 420 mg Tab Take 400 mg by mouth daily. 30 tablet 2 fluticasone propionate 50 mcg/actuation nasal spray Use 2 Sprays in each nostril in the morning. 16 g 0 oxymetazoline HCl (AFRIN NASAL) Use 1 Puff in each nostril every other day. Patient takes afrin over the counter, takes every other day Nebulizer Accessories Kit Provide nebulizer kit and appropriate accessories. 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 Social Determinants of Health Financial Resource Strain: Low Risk (10/08/2022) Overall Financial Resource Strain (CARDIA) Difficulty of Paying Living Expenses: Not hard at all Food Insecurity: No Food Insecurity (10/08/2022) Hunger Vital Sign Worried About Running Out of Food in the Last Year: Never true Ran Out of Food in the Last Year: Never true Transportation Needs: No Transportation Needs (10/08/2022) PRAPARE - Transportation Lack of Transportation (Medical): No Lack of Transportation (Non-Medical): No Physical Activity: Inactive (10/08/2022) Exercise Vital Sign Days of Exercise per Week: 0 days Minutes of Exercise per Session: 0 min Social Connections: Unknown (10/08/2022) Social Connection and Isolation Panel [NHANES] Frequency of Communication with Friends and Family: More than three times a week Marital Status: Never Housing Stability: Low Risk (10/08/2022) Housing Stability Vital Sign Unable to Pay for Housing in the Last Year: No Number of Places Lived in the Last Year: 1 Unstable Housing in the Last Year: No REVIEW OF SYSTEMS Not obtainable - intubated and sedated(-)=Negative,(+)=Positive General: (-) fever, (-) chills, (-) weight lossSkin: (-) rash, (-) lesionHEENT: (-) headache, (-) change in vision, (-) sore throatNeck: (-) pain, (-) difficulty swallowing, (-) massHeme: (-) bleeding disorderResp: (-) cough, (-) shortness of breath, (-) wheezingCardio: (-) chest pain, (-) palpitations, (-) syncopeGI: (-) abdominal pain, (-) vomiting, (-) diarrheaGU: (-) dysuria, (-) hematuria, (-) increased frequencyEndo: (-) heat intolerance, (-) diabetes, (-) cold intoleranceNeuro: (-) numbness, (-) weakness, (-) change in speechBack: (-) pain, (-)spasmsMSS: (-) muscle pain, (-) joint pain, (-) claudicationPsych: (-) anxiety, (-) depression, (-) psychiatric disorderPHYSICAL EXAMINATIONVitals: 10/19/22 0745 10/19/22 0755 10/19/22 0800 10/19/22 0805 BP: 118/74 96/64 98/64 97/64 Pulse: 58 55 56 59 Resp: 20 20 20 21 Temp: TempSrc: SpO2: 95% 100% 100% 100% Weight: Height: O2 sat: SpO2 readings for the past 24 hrs: SpO2 10/19/22 0400 97 % 10/19/22 0430 (!) 83 % 10/19/22 0449 97 % 10/19/22 0500 100 % 10/19/22 0530 100 % 10/19/22 0600 99 % 10/19/22 0645 100 % 10/19/22 0700 100 % 10/19/22 0715 100 % 10/19/22 0730 100 % 10/19/22 0745 95 % 10/19/22 0755 100 % 10/19/22 0800 100 % 10/19/22 0805 100 % I & O: Intake/Output Summary (Last 24 hours) at 10/19/2022 0939Last data filed at 10/19/2022 0735Gross per 24 hour Intake 50 ml Output 700 ml Net -650 ml General: intubated and sedatedHEENT: normocephalic atraumatic, pupils equal, round, reactive to light Neck: supple, no lymphadenopathy, no bruits, no JVDLungs: coarse BS to auscultation bilaterally, + rhonchi, no crackles, occ wheezesCardio: regular rate and rhythm, no murmurs, no gallopsAbdomen: soft; non-tender; non-distended; normoactive bowel soundsExtremities: no clubbing, cyanosis, or edemaSkin: no rashesNeuro: sedatedLABS - reviewed pertinent labs as below:Recent Results (from the past 48 hour(s)) TROPONIN I Collection Time: 10/19/22 4:08 AM Result Value Ref Range TROPONIN I 0.108 (H) <=0.034 ng/mL COMP. METABOLIC PANEL (60375) Collection Time: 10/19/22 4:08 AM Result Value Ref Range NA 143 135 - 145 mmol/L K 4.8 3.5 - 5.0 mmol/L CL 108 98 - 108 mmol/L CO2 TOTAL 31 23 - 31 mmol/L AGAP 4 2 - 16 BUN 53 (H) 7 - 23 mg/dL GLUCOSE 206 (H) 70 - 110 mg/dL CREATININE 2.46 (H) 0.60 - 1.25 mg/dL TOTAL BILI 0.4 0.1 - 1.1 mg/dL CALCIUM 8.9 8.6 - 10.6 mg/dL T PROTEIN 6.5 6.3 - 8.2 g/dL ALBUMIN 3.8 3.5 - 5.0 g/dL ALK PHOS 86 34 - 122 U/L ALTv 24 5 - 50 U/L AST(SGOT) 23 13 - 40 U/L eGFR 26.1 mL/min/1.73m2 LIPASE, SERUM Collection Time: 10/19/22 4:08 AM Result Value Ref Range LIPASE 81 0 - 220 U/L CBC WITH DIFF Collection Time: 10/19/22 4:08 AM Result Value Ref Range WBC 10.39 4.20 - 10.70 10*3/?L RBC 3.76 (L) 4.26 - 5.52 10*6/?L HGB 12.5 12.2 - 16.4 g/dL HCT 39.7 38.4 - 49.3 % MCV 105.6 (H) 81.7 - 95.6 fL MCH 33.2 (H) 26.1 - 32.7 pg MCHC 31.5 31.2 - 35.0 g/dL RDW-SD 60.3 (H) 38.5 - 51.6 fL RDW-CV 15.5 (H) 12.1 - 15.4 % PLT 284 150 - 328 10*3/?L MPV 10.4 9.8 - 13.0 fL NRBC/100 WBC 0.0 0.0 - 10.0 /100 WBCs NRBC x10^3 <0.01 10*3/?L GRAN MAT (NEUT) % 62.0 % IMM GRAN % 2.60 % LYMPH % 22.5 % MONO % 8.0 % EOS % 4.3 % BASO % 0.6 % GRAN MAT x10^3(ANC) 6.44 1.99 - 6.95 10*3/uL IMM GRAN x10^3 0.27 (H) 0.00 - 0.06 10*3/uL LYMPH x10^3 2.34 1.09 - 3.23 10*3/uL MONO x10^3 0.83 0.36 - 1.02 10*3/uL EOS x10^3 0.45 0.06 - 0.53 10*3/uL BASO x10^3 0.06 0.01 - 0.09 10*3/uL BLOOD CULTURE SCREEN Collection Time: 10/19/22 4:08 AM Specimen: ARM, LEFT, ABOVE ELBOW; Blood Result Value Ref Range Blood Culture-Aerobic Culture In Progress No growth Blood Culture-Anaerobic Culture In Progress No growth BLOOD CULTURE SCREEN Collection Time: 10/19/22 4:08 AM Specimen: ARM, LEFT, ABOVE ELBOW; Blood Result Value Ref Range Blood Culture-Aerobic Culture In Progress No growth Blood Culture-Anaerobic Culture In Progress No growth N-TERMINAL PRO-BNP Collection Time: 10/19/22 4:08 AM Result Value Ref Range NT-proBNP 1,700 (H) <=125 pg/mL COVID-19 (ID NOW TESTING) Collection Time: 10/19/22 4:13 AM Specimen: NASOPHARYNGEAL SWAB Result Value Ref Range SARS-CoV-2 Rapid ID NOW Not Detected Not Detected AC Panel 20 + Lactic Acid Collection Time: 10/19/22 4:24 AM Result Value Ref Range PH 7.15 (LL) 7.35 - 7.45 PCO2 76 (H) 35 - 45 mmHg PO2 39 (LL) 80 - 100 mmHg HCO3 26 22 - 26 mEq/L BE -4.6 (L) -3.0 - 3.0 mEq/L THB 12.8 (L) 13.5 - 18.0 g/dL %O2HB 70.7 (L) 94.0 - 99.0 % %COHB ART 0.3 0.0 - 1.5 % %METHB ART 0.3 (L) 0.4 - 1.5 % VOL%O2 ART 12.7 (L) 15.0 - 23.0 % NA 143 135 - 145 mmol/L K+ 4.6 3.5 - 5.0 mmol/L AC CA IONZ 5.10 4.50 - 5.30 mg/dL GLUCOSE 192 (H) 70 - 110 mg/dL LACTIC ACID 0.82 0.50 - 2.20 mmol/L Acute Care Arterial Blood Gas. Collection Time: 10/19/22 6:02 AM Result Value Ref Range PH 7.17 (LL) 7.35 - 7.45 PCO2 73 (H) 35 - 45 mmHg PO2 33 (LL) 80 - 100 mmHg HCO3 26 22 - 26 mEq/L BE -3.7 (L) -3.0 - 3.0 mEq/L POCT GLUCOSE (AUTOMATED) Collection Time: 10/19/22 9:32 AM Result Value Ref Range POCT GLU 196 (H) 70 - 110 mg/dL IMAGING - reviewed, pertinent results as below:XR CHEST 1 VWResult Date: 10/19/2022FINDINGS/IMPRESSION: Interval advancement of the endotracheal tube now projecting over the mid trachea, 4.7 cm from the german. Stable chest with unchanged left lower lobe atelectasis, trace left pleural effusion, and ill-defined right lung opacity, improving. Again seen left apical nodule. No focal osseous lesions or acute osseous findings are detected. Preliminary Report Dictated by Resident: Belen Cantu MD., have reviewed this study and agree with the above report.XR CHEST 1 VWResult Date: 10/19/2022Improving right lower lung hazy opacity may be due to resolving pneumonia. Stable left lower lung atelectasis and trace pleural effusion. Preliminary Report Dictated by Resident: Belen Macias MD., have reviewed this study and agree with the above report.XR CHEST 1 VWResult Date: 10/19/2022FINDINGS/IMPRESSION: Interval placement of endotracheal tube projecting over the upper trachea 9.8 cm above the german. Asymmetric lung volumes secondary to elevated left hemidiaphragm. Unchanged left lower lobe atelectasis. Trace left-sided pleural effusion remains. Stable ill-defined right lower lung hazy opacity. Unchanged left apical nodule stable since 2019. The cardiomediastinal silhouette is normal in size accounting for technique. No focal osseous lesions or acute osseous findings are detected. Preliminary Report Dictated by Resident: Belen Cantu MD., have reviewed this study and agree with the above report. EKG: Hospital Encounter 10/19/22 EKG-12 Lead ROUTINE ONCE EKG-12 Lead ROUTINE ONCE Hospital Encounter 10/05/22 EKG-12 Lead ROUTINE ONCE EKG-12 Lead ROUTINE ONCE Hospital Encounter 09/17/22 EKG-12 Lead ROUTINE ONCE EKG-12 Lead ROUTINE ONCE ASSESSMENT/Alisa Sarahi is a 72 year old male with PMH as listed above, admitted to the hospital with:Acute hypoxic and hypercapnic respiratory failure due to volume overload/CHFAcute on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
[2022-12-14] MEDS ORDERED: CEFTRIAXONE 2000 MG/VIAL ONE (17:21)
[2022-12-14] MEDS ORDERED: NA CHLORIDE 0.9% 100 ML ONE (17:21)
--- NOTE | 2022-12-14 17:23 | RAD REPORT ---
EXAM DESCRIPTION: Luz Single View12/14/2022 4:53 pm CLINICAL HISTORY: sob COMPARISON: July 2022 chest x-ray and May [address]22 CT FINDINGS: Mild bilateral pulmonary opacities Stable left upper lobe nodule. Refer to the CT chest report for recommendation Heart is moderately enlarged. There may be a small left pleural effusion IMPRESSION: These findings may indicate mild CHF
[2022-12-14 17:25] LABS: Urine Bacteria None Seen /HPF (<20); Urine Bilirubin NEGATIVE (Negative); Urine Blood Trace (Negative); Urine Clarity Clear (Clear); Urine Color Light-Yellow (Yellow); Urine Glucose 1+ (Negative); Urine Mucus Slight /HPF (None Seen); Urine Protein 4+ (Over) (Negative); Urine RBC <5 /HPF (None Seen); Urine Urobilinogen Normal (Normal); Urine pH 6.5 (5.0-7.0)
--- NOTE | 2022-12-14 17:39 | RAD REPORT ---
EXAM DESCRIPTION: CT - Head Brain Wo Cont - 12/14/2022 5:26 pm CLINICAL HISTORY: Alteration of awareness/confusion COMPARISON: July 2022 TECHNIQUE: Computed axial tomography of the head was obtained. IV contrast was not requested. All CT scans are performed using dose optimization technique as appropriate and may include automated exposure control or mA/KV adjustment according to patient size. FINDINGS: An intracranial bleed is not seen The ventricles are normal in caliber No extra-axial fluid collection is noted. No significant hyperdensity within the brain Fluid within the sinuses/ mastoids is not seen. IMPRESSION: No acute intracranial abnormality is seen If patient's symptoms persist MRI of the brain would be recommended
[2022-12-14 18:35] LABS: Arterial Blood Carboxyhemoglob 1.6 % (0-1.5); Blood Gas Oxyhemoglobin 74.7 % (94-97); Blood O2 Saturation 77.2 % (92-98.5)
[2022-12-14] MEDS ORDERED: ALBUTEROL 2.5 MG/3 ML NEB SOL ONE (18:36)
[2022-12-14] MEDS ORDERED: IPRATROPIUM BROM 0.5MG/2.5ML ONE (18:37)
[2022-12-14] MEDS ORDERED: FUROSEMIDE 40 MG/4 ML VIAL ONE (18:37)
[2022-12-14] MEDS ORDERED: METHYLPREDNISOLONE 125 MG INJ ONE (19:02)
--- NOTE | 2022-12-14 19:18 | P.HP ---
Certification for Inpatient Patient admitted to: Inpatient With expected LOS: >2 Midnights Patient will require the following post-hospital care: None Practitioner: I am a practitioner with admitting privileges, knowledge of patient current condition, hospital course, and medical plan of care. Services: Services provided to patient in accordance with Admission requirements found in Title 42 Section 412.3 of the Code of Federal Regulations Patient History Date of Service: 12/14/22 Reason for admission: Respiratory failure History of Present Illness: 72-year-old male with history of atrial fibrillation, COPD on chronic home O2, chronic diastolic CHF, CKD 4 presents to the emergency department with shortness of breath, lethargy/weakness. At this time he is a poor historian, appears mildly confused, does report a recent hospitalization/rehab placement states he was discharged from that facility on yesterday at 12. He was evaluated here in the emergency department his labs were significant for hemoglobin 10 hematocrit 30.3 creatinine 2.57 GFR 26 BUN 36 glucose 162 lactic acid 0.7 troponin 6.5 BNP 1981 bicarb is 37 after evaluation I ordered an ABG the results are as follows pH 7.25 PCO2 85.1 PO2 43.5 HCO3 35.6. For this reason patient was placed on BiPAP for acute on chronic hypercapnic/hypoxic respiratory failure, chest x-ray showed mild CHF he does have pitting edema of the lower extremities. Likely mixed CHF/COPD exacerbation. Will to be admitted for further management. Allergies No Known Allergies Allergy (Verified 07/25/22 01:57) Home Medications: ALPRAZolam [Xanax*] 1 mg PO BEDTIME PRN PRN 08/02/22 Acetaminophen [Tylenol*] 650 mg PO Q6H PRN 08/02/22 Albuterol Sulfate [Proair Respiclick] 2 inh PO Q6HP PRN 08/02/22 Arformoterol Tartrate [Brovana] 1 amp NEB BID 08/02/22 Baclofen 10 mg PO TID 08/02/22 Benzonatate [Tessalon Perle*] 100 mg PO Q8HP PRN 08/02/22 Budesonide [Pulmicort Flexhaler] 1 puff IH BID 08/02/22 Bumetanide [Bumex*] 1 mg PO BID 08/02/22 Clobetasol Propionate [Clobex] 1 olga TOP BID 08/02/22 Clonidine HCl [Catapres*] 0.2 mg PO Q8HP PRN 08/02/22 Ergocalciferol (Vitamin D2) [Vitamin D 50,000 Unit Cap] 50,000 unit PO Q7D 08/02/22 Fluticasone [Flonase 50MCG Nasal [place]*] 2 spray BELKIS DAILY 08/02/22 Furosemide [Lasix*] 40 mg PO DAILY 08/02/22 Gabapentin 300 mg PO TID 08/02/22 Glipizide [Glipizide Xl] 2.5 mg PO BID 08/02/22 Haloperidol Lac [Haldol] 2 mg IM Q8HP PRN 08/02/22 Levothyroxine Sodium 150 mcg PO DAILY 08/02/22 Magnesium Oxide [Magnesium] 500 mg PO DAILY 08/02/22 NIFEdipine [Nifedipine ER] 30 mg PO DAILY 08/02/22 Pravastatin Sodium 40 mg PO DAILY 08/02/22 Tamsulosin [Flomax*] 0.4 mg PO BEDTIME 08/02/22 Tiotropium [Spiriva Handihaler*] 1 puff IH DAILY 08/02/22 Trazodone [Desyrel*] 50 mg PO BEDTIME 08/02/22 hydrOXYzine HCL [Atarax*] 25 mg PO Q8HP PRN 08/02/22 predniSONE [Prednisone*] 5 mg PO DAILY 08/02/22 Smz./Tmp. [Bactrim Ds 800 MG/160 MG] 1 tab PO BID 5 Days #10 tab 08/04/22 - Past Medical/Surgical History Diabetic: Yes -: CHF -: Diabetes Type 2 -: CKD -: Afib -: appendectomy -: Neck surgery 2013 -: Left knee surgery Psychosocial/ Personal History: Lives at home with family - Family History Father -: Heart disease, Liver disease Notes: Alcoholic Mother -: Heart disease, Hypertension, Diabetes Sister -: Heart disease Notes: [place] Brother -: Heart disease Notes: [place], CHF older sister -: Heart disease, Kidney disease - Social History Smoking Status: Never smoker Alcohol use: No CD- Drugs: No Caffeine use: Yes Place of Residence: Home Review of Systems 10-point ROS is otherwise unremarkable Respiratory: Shortness of Breath, SOB with Excertion Cardiovascular: Edema Physical Examination - Vital Signs Pulse: 85 Pulse Ox (%): 95 - Physical Exam General: Alert, In no apparent distress, Oriented x3 HEENT: Atraumatic, PERRLA, Mucous membr. moist/pink, EOMI, Sclerae nonicteric Neck: Supple, 2+ carotid pulse no bruit, No LAD, Without JVD or thyroid abnormality Respiratory: Clear to auscultation bilaterally, Normal air movement Cardiovascular: Regular rate/rhythm, Normal S1 S2 Capillary refill: <2 Seconds Gastrointestinal: Normal bowel sounds, No tenderness Musculoskeletal: No tenderness Integumentary: No rashes Neurological: Normal speech, Normal strength at 5/5 x4 extr, Normal tone, Normal affect - Studies Laboratory Data (last 24 hrs) 12/14/22 12/14/22 12/14/22 16:18 16:18 16:18 WBC 7.90 Hgb 10.0 L Hct 30.3 L Plt Count 214 PT 10.2 INR 0.93 APTT 38.8 H Sodium 139 Potassium 4.8 BUN 36 H Creatinine 2.57 H Glucose 162 H Total Bilirubin 0.3 AST 23 ALT 24 Alkaline Phosphatase 69 Assessment and Plan - Plan Assessment: Acute on chronic hypoxic/hypercapnic respiratory failure Acute on chronic diastolic CHF COPD CKD 4 Diabetes mellitus type 2insulin-dependent Atrial fibrillation Plan: Acute on chronic hypoxic/hypercapnic respiratory failure Continue BiPAP, repeat ABG. Continue treatment for underlying cause likely mixed CHF/COPD exacerbation. Continue gentle diuresis, nephrology/cardiology consult. Echocardiogram performed in June showed normal ejection fraction. Appreciate further per from cardiology/nephrology. Acute on chronic diastolic CHF Continue as above COPD Steroids, as needed nebulizer treatments. Continue BiPAP. CKD 4 Similar to baseline, nephrology consult given volume overload, CKD 4. Diabetes mellitus type 2insulin-dependent ACHS Accu-Chek, sliding scale insulin, A1c in morning. Atrial fibrillation Currently in sinus rhythm, patient unclear if he is on anticoagulation will review home medications, restart as appropriate. DVT PPX: Heparin subcu Code status: Full code Discharge Plan: Home Plan to discharge in: 72 Hours - Advance Directives Does patient have a Living Will: No Does patient have a Durable POA for Healthcare: Yes - Code Status/Comfort Care Code Status Assessed: Yes (Full code) Critical Care: No Time Spent Managing Pts Care (In Minutes): 70
--- NOTE | 2022-12-14 20:51 | ER ---
Nurse's Notes [facility] Name: Joe Singh Age: 72 yrs Sex: Male : 1950 Arrival Date: 12/14/2022 Time: 15:57 Bed 19 Private MD: Diagnosis: Shortness of breath;Acute respiratory failure with hypoxia-77% RA;Heart failure, unspecified Presentation: 12/14 16:08 Chief complaint: EMS states: they were toned out for SOB. pt was 51% on RA at home when kc6 family was adjusting his home O2. pt was reportedly d/c from yesterday. BGL en route 225. Coronavirus screen: At this time, the client does not indicate any symptoms associated with coronavirus-19. Ebola Screen: No symptoms or risks identified at this time. Initial Sepsis Screen: Does the patient meet any 2 criteria? No. Patient's initial sepsis screen is negative. Does the patient have a suspected source of infection? No. Patient's initial sepsis screen is negative. Risk Assessment: Do you want to hurt yourself or someone else? Patient reports no desire to harm self or others. Onset of symptoms was December 14, 2022. 16:08 Method Of Arrival: EMS: [facility] 6 16:08 Acuity: JENNY 2 kc6 Triage Assessment: 16:10 General: Appears in no apparent distress. comfortable, ill, Behavior is calm, kc6 cooperative, appropriate for age. Pain: Denies pain. EENT: No signs and/or symptoms were reported regarding the EENT system. Neuro: Level of Consciousness is obeys commands, lethargic, Oriented to person, place, time, situation, Appropriate for age. Cardiovascular: Heart tones S1 S2 present Capillary refill < 3 seconds Edema is 4+ to left midcalf, left ankle, right midcalf and right ankle pitting to left midcalf, left ankle, right midcalf and right ankle. Respiratory: Reports shortness of breath Airway is patent Trachea midline Respiratory effort is even, unlabored, Respiratory pattern is regular, symmetrical, Onset: The symptoms/episode began/occurred today, the patient has moderate shortness of breath. GI: No signs and/or symptoms were reported involving the gastrointestinal system. : No signs and/or symptoms were reported regarding the genitourinary system. Derm: No signs and/or symptoms reported regarding the dermatologic system. Skin is fragile, has skin tears on left arm Skin is pink, warm \T\ dry. Rash noted that is red, on left foot Decubitus located on sacrum covered in a dressing that is clean, dry, and intact without redness, swelling or drainage. Musculoskeletal: No signs and/or symptoms reported regarding the musculoskeletal system. Circulation, motion, and sensation intact. Capillary refill < 3 seconds, Range of motion: intact in all extremities. Historical: - Allergies: 16:10 No Known Allergies; kc6 - PMHx: 16:10 Atrial fibrillation; Chronic obstructive lung disease; Congestive heart failure; kc6 neuropathy; - PSHx: 16:10 None; kc6 - Immunization history:: Adult Immunizations unknown. - Social history:: Smoking status: unknown. Screenin:14 [facility] ED Fall Risk Assessment (Adult) History of falling in the last 3 months, kc6 including since admission Yes- single mechanical fall (1 pt) Confusion or Disorientation No (0 pts) Intoxicated or Sedated No (0 pts) Impaired Gait Yes (1 pt) Mobility Assist Device Used No (0 pt) Altered Elimination No (0 pt) Score/Fall Risk Level 3 or more points = High Risk. Abuse screen: Denies threats or abuse. Denies injuries from another. Nutritional screening: No deficits noted. Tuberculosis screening: No symptoms or risk factors identified. Assessment: 16:15 Reassessment: please see triage assessment. [facility] 17:15 Reassessment: Patient appears in no apparent distress at this time. No changes from [facility] previously documented assessment. Patient and/or family updated on plan of care and expected duration. Pain level reassessed. Patient is alert, oriented x 3, equal unlabored respirations, skin warm/dry/pink. 18:15 Reassessment: Patient appears in no apparent distress at this time. No changes from 6 previously documented assessment. Patient and/or family updated on plan of care and expected duration. Pain level reassessed. Patient is alert, oriented x 3, equal unlabored respirations, skin warm/dry/pink. 18:20 Reassessment: pt appears to be 77% on RA prior to admin of breathing treatment. pt kc6 placed back on 4L via NC, SPO2 96%. Dr. Ring notified. 18:45 Reassessment: pt placed on bipap at this time. kc6 18:54 Reassessment: pt voided approximately 600 mL of clear, yellow urine to tellez catheter kc6 at bedside. 19:12 General: Appears uncomfortable, Behavior is anxious, uncooperative. Pain: Unable to use ha1 pain scale. FLACC scale score is 0 out of 10. Neuro: Level of Consciousness is awake, alert, Oriented to person. Cardiovascular: Reports shortness of breath, Heart tones S1 S2 present Capillary refill < 3 seconds Rhythm is. Respiratory: Airway is patent Respiratory effort is with retractions, Respiratory pattern is tachypnea Patient placed on BiPAP: Breath sounds are coarse bilaterally. : Tellez in place. Musculoskeletal: Circulation, motion, and sensation intact. 20:35 General: Behavior is anxious. Respiratory: Airway is patent Respiratory effort is with ha1 retractions, Respiratory pattern is tachypnea pt. trying to get out of bed, trying to removed BiPad. Notified Chan care provider. 20:55 Reassessment: attempted to give report. ha1 21:00 Reassessment: pt. disconnected BiPad.called. BiPad reattached respiratory therapist. ha1 21:05 Reassessment: respiratory therapist in room. ha1 21:15 Reassessment: Pt. transported by [employer]. ha1 21:15 General: Appears comfortable, Behavior is cooperative. Respiratory: Airway is patent ha1 Respiratory effort is even, relaxed, Respiratory pattern is regular. 21:50 Reassessment: report given to YOLANDA Acosta. ha1 Vital Signs: 16:08 BP 112 / 61; Pulse 87; Resp 19 S; Temp 97.9; Weight 88.45 kg (R); Height 6 ft. 0 in. kc6 (R); 17:34 BP 148 / 96; Pulse 89; Resp 20 S; Temp 98.3(O); Pulse Ox 96% on 4 lpm NC; kc6 18:46 BP 151 / 61; Pulse 86; Resp 21 S; Pulse Ox 100% on BiPAP; kc6 19:40 BP 160 / 72; Pulse 85; Resp 21 S; Pulse Ox 98% on BiPAP; ha1 20:45 BP 150 / 99; Pulse 81; Resp 21 S; Pulse Ox 98% on BiPAP; ha1 16:08 Body Mass Index 26.45 (88.45 kg, 182.88 cm) 6 ED Course: 16:07 Patient arrived in ED. eb 16:08 Olivia Beaver, YOLANDA is Primary Nurse. kc6 16:10 Triage completed. kc6 16:10 Arm band placed on. kc6 16:12 Maintain EMS IV. Dressing intact. Good blood return noted. Site clean \T\ dry. Gauge \T\ lillian 6 site: 20G L Hand. 16:13 Robbie Ring MD is Attending Physician. kdr 16:14 Patient has correct armband on for positive identification. Placed in gown. Bed in low kc6 position. Call light in reach. Side rails up X2. Client placed on continuous cardiac and pulse oximetry monitoring. NIBP monitoring applied. school lunch monitor on. 16:14 Inserted saline lock: 18 gauge in right forearm, using aseptic technique. Blood kc6 collected. Oxygen administration via nasal cannula \T\ 4L/min. 16:18 Initial lab(s) drawn, by me, sent to lab. First set of blood cultures drawn by me. cm10 16:22 CBC with Diff Sent. cm10 16:22 CMP Sent. cm10 16:22 Lactate w/ 2H reflex if indic. Sent. cm10 16:22 Protime (+inr) Sent. cm10 16:22 Ptt, Activated Sent. cm10 16:45 Inserted saline lock: 20 gauge in right antecubital area, using aseptic technique. kc6 Blood collected. 16:55 Chest Single View XRAY In Process Unspecified. EDMS 17:05 Urinalysis w/ reflexes Sent. kc6 17:05 Tellez cath inserted, using sterile technique, 16 Fr., by mi, balloon inflated, to kc6 gravity drainage, clamped. urine specimen collected. returned clear yellow urine. Patient tolerated well. 17:26 CT Head Brain wo Cont In Process Unspecified. EDMS 20:30 Provided Education on: need for admit . ha1 20:49 Davon Carlton MD is Hospitalizing Provider. kdr 21:12 No provider procedures requiring assistance completed. Patient admitted, IV remains in ha1 place. Administered Medications: 17:34 Drug: Rocephin - Rocephin (cefTRIAXone) IVPB 2 grams IVPB once over 30 mins; (mix in kc6 100 mL NS) Route: IVPB; Infused Over: 30 mins; Site: right forearm; 18:22 Follow up: Response: No adverse reaction; IV Status: Completed infusion; IV Intake: kc6 100ml 18:32 Drug: Albuterol Inhalation 2.5 mg Inhalation once Route: Inhalation; kc6 18:48 Follow up: Response: No adverse reaction kc6 18:32 Drug: Ipratropium Inhalation Aerosol 0.5 mg Inhalation once Route: Inhalation; kc6 18:48 Follow up: Response: No adverse reaction kc6 18:32 Drug: Furosemide IVP 40 mg IVP once; give over 2 minutes Route: IVP; Site: left wrist; kc6 18:53 Follow up: Response: No adverse reaction kc6 18:52 Drug: MethylPrednisoLONE IVP 125 mg IVP once Route: IVP; Site: right forearm; kc6 Medication: 21:13 VIS not applicable for this client. ha1 Intake: 18:22 IV: 100ml; Total: 100ml. kc6 Outcome: 20:50 Decision to Hospitalize by Provider. kdr 21:12 Admitted to Med/surg accompanied by nurse, room 220, with chart, ha1 21:12 Condition: stable 21:12 Discharge instructions given to patient, Instructed on the need for admit, Demonstrated understanding of instructions, 21:15 Patient left the ED. ha1 Signatures: Dispatcher [employer] EDMS Robbie Ring MD MD kdr Botello, Elizabeth eb Ayala, Heidy, RN RN ha1 Olivia Beaver RN RN kc6 Vaishnavi Briones RN RN cm10 Corrections: (The following items were deleted from the chart) 17:38 16:10 Derm: No signs and/or symptoms reported regarding the dermatologic system. Skin kc6 is fragile, has skin tears on left arm Skin is pink, warm \T\ dry. kc6 18:46 18:20 Reassessment: pt appears to be 77% on RA prior to admin of breathing treatment. kc6 Dr. Ring notified kc6 12/15 06:17 12/14 21:12 Discharge instructions given to patient, Instructed on the need for admit, ha1 Demonstrated understanding of instructions, ha1
--- NOTE | 2022-12-14 20:51 | EDPHYS ---
Physician Documentation [facility] Name: Joe Singh Age: 72 yrs Sex: Male : 1950 Arrival Date: 12/14/2022 Time: 15:57 Bed 19 Private MD: ED Physician Robbie Ring HPI: 12/14 16:20 This 72 yrs old Male presents to ER via EMS with complaints of Shortness Of Breath, kdr General Weakness. 16:20 The patient has shortness of breath at rest. kdr 16:20 Patient was brought to the ED via EMS. Family had called because of altered mental kdr status and shortness of breath. Patient is a somewhat reasonable historian and states that he has been short of breath today. The patient was seen when the last few days at [facility] possibly in the [place] area. He was discharged from the hospital. It is unknown if he was actually admitted or just an emergency department visit at that time. In any case patient presents tremulous and responsive but somewhat somnolent. Patient has no focal complaint other than his shortness of breath. Patient appears mildly toxic and possibly septic on arrival.. Onset: The symptoms/episode began/occurred today, at an unknown time. Severity of symptoms: At their worst the symptoms were moderate severe just prior to arrival, in the emergency department the symptoms are unchanged. It is unknown whether or not the patient has had similar symptoms in the past. The patient has been recently seen by a physician: Patient was admitted to a facility in the [facility] recently. Historical: - Allergies: 16:10 No Known Allergies; kc6 - PMHx: 16:10 Atrial fibrillation; Chronic obstructive lung disease; Congestive heart failure; kc6 neuropathy; - PSHx: 16:10 None; kc6 - Immunization history:: Adult Immunizations unknown. - Social history:: Smoking status: unknown. ROS: 16:20 Constitutional: Negative for fever, chills, and weight loss, Eyes: Negative for injury, kdr pain, redness, and discharge, Neck: Negative for injury, pain, and swelling, Cardiovascular: Negative for chest pain, palpitations, and edema, Abdomen/GI: Negative for abdominal pain, nausea, vomiting, diarrhea, and constipation, Back: Negative for injury and pain, : Negative for injury, bleeding, discharge, and swelling, MS/Extremity: Negative for injury and deformity, Skin: Negative for injury, rash, and discoloration, Neuro: Negative for headache, weakness, numbness, tingling, and seizure activity. Psych: Negative for depression, anxiety, suicide ideation, homicidal ideation, and hallucinations, Allergy/Immunology: Negative for hives, rash, and allergies, Endocrine: Negative for neck swelling, polydipsia, polyuria, polyphagia, and marked weight changes, Hematologic/Lymphatic: Negative for swollen nodes, abnormal bleeding, and unusual bruising, 16:20 Respiratory: Positive for cough, dyspnea on exertion, shortness of breath, at rest. 16:20 MS/extremity: Positive for swelling, Patient has 2+ edema to his lower extremities up to the knee. Acute, Exam: 16:20 Constitutional: This is a well developed, well nourished patient who is awake, alert, kdr and in mild to moderate distress. Head/Face: Normocephalic, atraumatic. Eyes: Pupils equal round and reactive to light, extra-ocular motions intact. Lids and lashes normal. Conjunctiva and sclera are non-icteric and not injected. Cornea within normal limits. Periorbital areas with no swelling, redness, or edema. Neck: Trachea midline, no thyromegaly or masses palpated, and no cervical lymphadenopathy. Supple, full range of motion without nuchal rigidity, or vertebral point tenderness. No Meningismus. Chest/axilla: Normal chest wall appearance and motion. Nontender with no deformity. No lesions are appreciated. Cardiovascular: Regular rate and rhythm with a normal S1 and S2. No gallops, murmurs, or rubs. Normal PMI, no JVD. No pulse deficits. Abdomen/GI: Soft, non-tender, with normal bowel sounds. No distension or tympany. No guarding or rebound. No evidence of tenderness throughout. Back: No spinal tenderness. No costovertebral tenderness. Full range of motion. Skin: Warm, dry with normal turgor. Normal color with no rashes, no lesions, and no evidence of cellulitis. 16:20 Respiratory: the patient does not display signs of respiratory distress, Respirations: normal, Breath sounds: rales, that are moderate, bronchial sounds, that are mild, rhonchi, that are mild, are scattered, are located in both bases, stridor, is not appreciated, wheezing: expiratory that is mild, is heard diffusely, Vital Signs: 16:08 BP 112 / 61; Pulse 87; Resp 19 S; Temp 97.9; Weight 88.45 kg (R); Height 6 ft. 0 in. kc6 (R); 17:34 BP 148 / 96; Pulse 89; Resp 20 S; Temp 98.3(O); Pulse Ox 96% on 4 lpm NC; kc6 18:46 BP 151 / 61; Pulse 86; Resp 21 S; Pulse Ox 100% on BiPAP; kc6 19:40 BP 160 / 72; Pulse 85; Resp 21 S; Pulse Ox 98% on BiPAP; ha1 20:45 BP 150 / 99; Pulse 81; Resp 21 S; Pulse Ox 98% on BiPAP; ha1 16:08 Body Mass Index 26.45 (88.45 kg, 182.88 cm) kc6 MDM: 16:20 Data reviewed: vital signs, nurses notes, lab test result(s), radiologic studies. kdr 20:50 Patient medically screened. [facility] 12/14 16:14 Order name: Blood Culture Adult (2) kdr 12/14 16:14 Order name: CBC with Diff; Complete Time: 17:05 kdr 12/14 16:14 Order name: CMP; Complete Time: 17:05 [facility] 12/14 16:14 Order name: Lactate w/ 2H reflex if indic.; Complete Time: 17:05 [facility] 12/14 16:14 Order name: Protime (+inr); Complete Time: 17:05 [facility] 12/14 16:14 Order name: Ptt, Activated; Complete Time: 17:05 [facility] 12/14 16:14 Order name: Urinalysis w/ reflexes; Complete Time: 17:50 kdr 12/14 18:08 Order name: NT PRO-BNP; Complete Time: 19:09 kdr 12/14 18:08 Order name: ABG; Complete Time: 19:09 kdr 12/14 18:19 Order name: Troponin High Sensitivity; Complete Time: 19:09 la1 12/14 16:14 Order name: Chest Single View XRAY; Complete Time: 17:50 kdr 12/14 17:06 Order name: CT Head Brain wo Cont; Complete Time: 17:50 kdr 12/14 18:37 Order name: BIPAP la1 12/14 16:14 Order name: EKG; Complete Time: 16:15 kdr 12/14 16:14 Order name: Accucheck; Complete Time: 16:23 kdr 12/14 16:14 Order name: Cardiac monitoring; Complete Time: 16:23 kdr 12/14 16:14 Order name: EKG - Nurse/Tech; Complete Time: 16:23 kdr 12/14 16:14 Order name: IV Saline Lock - Large Bore; Complete Time: 16:22 kdr 12/14 16:14 Order name: Labs collected and sent; Complete Time: 16:22 kdr 12/14 16:14 Order name: O2 Per Protocol; Complete Time: 16:15 kdr 12/14 16:14 Order name: O2 Sat Monitoring; Complete Time: 16:15 kdr 12/14 16:14 Order name: Vital Signs; Complete Time: 16:15 kdr Administered Medications: 17:34 Drug: Rocephin - Rocephin (cefTRIAXone) IVPB 2 grams IVPB once over 30 mins; (mix in kc6 100 mL NS) Route: IVPB; Infused Over: 30 mins; Site: right forearm; 18:22 Follow up: Response: No adverse reaction; IV Status: Completed infusion; IV Intake: kc6 100ml 18:32 Drug: Albuterol Inhalation 2.5 mg Inhalation once Route: Inhalation; kc6 18:48 Follow up: Response: No adverse reaction kc6 18:32 Drug: Ipratropium Inhalation Aerosol 0.5 mg Inhalation once Route: Inhalation; kc6 18:48 Follow up: Response: No adverse reaction kc6 18:32 Drug: Furosemide IVP 40 mg IVP once; give over 2 minutes Route: IVP; Site: left wrist; kc6 18:53 Follow up: Response: No adverse reaction kc6 18:52 Drug: MethylPrednisoLONE IVP 125 mg IVP once Route: IVP; Site: right forearm; kc6 Disposition Summary: 12/14/22 20:50 Hospitalization Ordered Notes: Hospitalization Status: Inpatient Admission kdr Provider: Davon Carlton Location: Telemetry/MedSurg (Inpatient) kdr Condition: Fair kdr Problem: new kdr Symptoms: are unchanged kdr Bed/Room Type: Standard kdr Room Assignment: 220(12/14/22 20:50) cg Diagnosis - Shortness of breath kdr - Acute respiratory failure with hypoxia - 77% RA kdr - Heart failure, unspecified kdr Forms: - Medication Reconciliation Form kdr - SBAR form kdr - Leadership Thank You Letter kdr Signatures: Dispatcher [employer] Robbie Wilson MD MD kdr Chan Echevarria, GORDON-C ONLINE ACTIVIST-[email or web address] Regina Raygoza RN RN cg Olivia Beaver RN RN kc6 Corrections: (The following items were deleted from the chart) 20:50 20:50 kdr cg
[2022-12-14] MEDS ORDERED: ALBUTEROL 2.5 MG/3 ML NEB SOL NEB PRN (21:45)
[2022-12-14] MEDS: INSULIN REGULAR (HUMAN) 100 UNIT/ML SQ SCH (21:45)
[2022-12-14] MEDS ORDERED: ONDANSETRON 4 MG/2 ML VIAL IV PRN (21:45)
[2022-12-14] MEDS ORDERED: IPRATROPIUM BROM 0.5MG/2.5ML NEB PRN (21:45)
[2022-12-14 21:48] VITALS: BMI 26.4
[2022-12-14 22:56] LABS: Arterial Blood Carboxyhemoglob 1.6 % (0-1.5); Blood Gas Oxyhemoglobin 88.7 % (94-97); Blood O2 Saturation 91.7 % (92-98.5)
[2022-12-15] MEDS: METHYLPREDNISOLONE 40 MG INJ IV SCH ×3 (01:06→21:03)
[2022-12-15] MEDS: MELATONIN 5 MG TABLET PO PRN (01:10)
[2022-12-15 03:06] LABS: Absolute Lymphocytes (CBC) 0.3 K/uL (0.7-4.9); Hematocrit 26.6 % (39.6-49.0); Lymphocytes % 5.3 % (15.3-44.8); MCV 95.9 fL (80-100); MPV 8.4 fL (7.6-11.3); Platelets 192 thou/uL (152-406); RBC Red Blood Cell Count 2.78 M/uL (4.33-5.43)
[2022-12-15 03:50] LABS: Potassium 4.6 mEq/L (3.5-5.1); Thyroid Stimulating Hormone 3.55 uIU/mL (0.358-3.740)
[2022-12-15 05:36] LABS: Arterial Blood Carboxyhemoglob 1.6 % (0-1.5); Blood Gas Oxyhemoglobin 93.3 % (94-97); Blood O2 Saturation 96.1 % (92-98.5)
[2022-12-15] MEDS: HYDROCODONE/APAP 5/325 MG TAB PO PRN ×4 (05:59→22:36)
[2022-12-15] MEDS: INSULIN REGULAR (HUMAN) 100 UNIT/ML SQ SCH ×4 (07:30→21:00)
[2022-12-15] MEDS: FUROSEMIDE 40 MG/4 ML VIAL IV SCH ×2 (08:21→17:00)
[2022-12-15] MEDS: HEPARIN 5000 UNIT/ML 1 ML VIAL SQ SCH ×2 (09:00→21:01)
[2022-12-15] MEDS: ALBUTEROL 2.5 MG/3 ML NEB SOL NEB SCH ×3 (10:46→18:55)
[2022-12-15] MEDS ORDERED: ALBUTEROL 2.5 MG/3 ML NEB SOL NEB SCH (11:00)
[2022-12-15] MEDS: DULERA 200/5 (MOMETASONE/FORMOTEROL) INHALER IH SCH ×2 (12:06→21:02)
--- NOTE | 2022-12-15 12:08 | P.PN ---
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 [place] Review of Systems General: Weakness Respiratory: Shortness of Breath Physical Examination - Vital Signs Temperature: 98.6 F Blood Pressure: 164/78 Pulse: 75 Respirations: 16 Pulse Ox (%): 94 - Physical Exam General: Alert, Oriented x3 Respiratory: Clear to auscultation bilaterally, Diminished Cardiovascular: No edema, Normal pulses, Regular rate/rhythm Gastrointestinal: Normal bowel sounds, Soft and benign - Studies Laboratory Data (last 24 hrs) 12/14/22 12/14/22 12/14/22 16:18 16:18 16:18 WBC 7.90 Hgb 10.0 L Hct 30.3 L Plt Count 214 PT 10.2 INR 0.93 APTT 38.8 H Sodium 139 Potassium 4.8 BUN 36 H Creatinine 2.57 H Glucose 162 H Total Bilirubin 0.3 AST 23 ALT 24 Alkaline Phosphatase 69 Assessment And Plan - Current Problems (Diagnosis) (1) Acute on chronic respiratory failure with hypoxia and hypercapnia Current Visit: Yes Status: Acute Plan: Patient is 72 years of age admitted with for maryam failure presumed acute on chronic he has I suspect severe COPD uses nebulizers at home does not use any long-acting bronchodilators patient has chronic renal failure bicarb is also elevated mildly anemic vital signs reviewed stable patient does not tolerate BiPAP patient has cardiomegaly may have some element of volume overload or heart failure last echocardiogram in June showed normal ejection fraction titrate sat to 90% optimize bronchodilator therapy renal ultrasound was done in July no evidence of hydronephrosis
[2022-12-15] MEDS: IPRATROPIUM BROM 0.5MG/2.5ML NEB SCH ×2 (14:36→18:55)
[2022-12-15] MEDS ORDERED: INFLUENZA VACCINE (for 6+ mo) 0.5 ML DOSE IMVAC ONE (15:00)
[2022-12-15] MEDS ORDERED: PNEUMOCOCCAL VACCINE 0.5 ML IMVAC ONE (15:00)
--- NOTE | 2022-12-15 15:38 | CON ---
Date of Consultation: 12/15/2022 Reason For Consultation: Acute on chronic renal insufficiency. History Of Present Illness: Mr. Singh is a 72-year-old male who is well known to us from past sever al years. 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 The patie nt was admitted yesterday with the ongoing shortness of breath. He had a chest x-ray done in the [facility] room, which showed some pulmonary edema. He has been admitted for treatment of COPD/CHF exace rbation. Started on diuretics with Lasix and also started on Solu-Medrol to treat his COPD. Patient is confused and he reports recent hospitalization at [place]. He lives alone and he does not have any power of ballet teacher and he seems very confused and has had recurrent admissions. He currently seem s slightly short of breath, currently on nasal cannula oxygen. He is wanting pain medications. Past Medical History: Significant for multiple admissions for COPD and CHF, history of chronic diast olic heart failure, history of diabetes but currently not on any medications, severe anxiety, history of chronic pain, history of insomnia, polypharmacy. Past Surgical History: Significant for history of appendectomy, neck surgery, and left knee surgery. Social History: He lives at home by himself. No history of smoking or alcohol use at the current ti me reported. Family History: Noncontributory. Physical Examination: Vital Signs: Showing temperatures of 98.6, pulse rate of 75, respiratory rate of 16, and blood press ure 164/78. General: He appears in [id number] respiratory distress. He is not able to talk in full senten enedelia. HEENT: Shows atraumatic head. No JVD was noted. Lungs: Auscultation of the lungs revealed bibasilar crackles. Heart: Auscultation of the heart revealed irregular rate and rhythm. Extremities: Showed trace amount of edema. Abdomen: Obese and nontender. Neurological: He is alert and awake, but he is not oriented to time and place. Laboratory Data: At this time are showing sodium of 141, potassium of 4.6, chloride of 102, bicarb o f 37, BUN of 36, and creatinine of 2.42. CBC showing WBC count of 5.6, hemoglobin of 8.9, hematocrit of 26.6, and platelet count of 192. His urinalysis showed glycosuria and trace amount of blood with some proteinuria, but no other changes. Chest x-ray showed bilateral infiltrates consistent with pu lmonary edema. He has had a CT scan of his head which showed no acute abnormalities. Current Medications: Have been reviewed in detail. Impression: 1.Acute on chronic renal insufficiency secondary to underlying cardiorenal syndrome. Patient is cur rently getting diuresis with Lasix 40 mg IV b.i.d., but he does have some metabolic alkalosis already , possibly a combination of respiratory and metabolic alkalosis. I will go ahead and add gentle acet azolamide and monitor his labs closely to assist diuresis. 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 Patient seems very confused and he has had progressive decline in his mental condition and is unable to remember much and he has been admitted to multiple hospitals. 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 3.Acute congestive heart failure exacerbation. Continue diuresis and acetazolamide. 4.Chronic obstructive pulmonary disease. Continue pulmonary toilet, neb treatments, and steroids an d wean down steroids as tolerated. 5.Severe debility and weakness. 6.Type 2 diabetes. Continue insulin per protocol. Plan: Overall, patient is admitted recurrently for congestive heart failure/COPD exacerbation. Cont inue diuresis. Monitor labs closely and consider Lead Sustainability Specialist involvement for placement options. VV/MODL Voice ID: [id number] Report ID: [id number]
[2022-12-15] MEDS ORDERED: FUROSEMIDE 40 MG/4 ML VIAL IV SCH (17:00)
[2022-12-15] MEDS: ACETAZOLAMIDE 500 MG IV IV SCH (21:01)
[2022-12-15] MEDS ORDERED: WATER FOR INJ,STERILE 10 ML ONE (21:33)
[2022-12-16] MEDS: ALBUTEROL 2.5 MG/3 ML NEB SOL NEB SCH ×4 (01:10→19:00)
[2022-12-16] MEDS: IPRATROPIUM BROM 0.5MG/2.5ML NEB SCH ×4 (01:10→19:00)
[2022-12-16] MEDS: HYDROCODONE/APAP 5/325 MG TAB PO PRN ×4 (04:34→22:44)
[2022-12-16 07:08] LABS: Absolute Lymphocytes (CBC) 1.2 K/uL (0.7-4.9); Hematocrit 26.8 % (39.6-49.0); Platelets 197 thou/uL (152-406); RBC Red Blood Cell Count 2.79 M/uL (4.33-5.43)
[2022-12-16 07:20] LABS: Potassium 3.6 mEq/L (3.5-5.1)
[2022-12-16] MEDS: INSULIN REGULAR (HUMAN) 100 UNIT/ML SQ SCH ×4 (07:30→21:00)
[2022-12-16] MEDS: DULERA 200/5 (MOMETASONE/FORMOTEROL) INHALER IH SCH ×2 (08:54→21:00)
[2022-12-16] MEDS: FUROSEMIDE 40 MG/4 ML VIAL IV SCH ×2 (08:55→17:00)
[2022-12-16] MEDS: HEPARIN 5000 UNIT/ML 1 ML VIAL SQ SCH ×2 (08:56→21:00)
[2022-12-16] MEDS: METHYLPREDNISOLONE 40 MG INJ IV SCH (08:56)
[2022-12-16] MEDS: ACETAZOLAMIDE 500 MG IV IV SCH ×2 (09:15→21:00)
--- NOTE | 2022-12-16 10:30 | P.PN ---
Subjective Date of Service: 12/16/22 Chief Complaint: Respiratory failure Patient is doing much better shortness of breath has improved on 1 L of nasal cannula oxygen Review of Systems Unremarkable Physical Examination - Vital Signs Temperature: 98.9 F Blood Pressure: 168/89 Pulse: 86 Respirations: 18 Pulse Ox (%): 98 - Physical Exam General: Alert, In no apparent distress, Oriented x3 Respiratory: Clear to auscultation bilaterally, Diminished Cardiovascular: No edema, Normal pulses, Regular rate/rhythm Assessment And Plan - Current Problems (Diagnosis) (1) Acute on chronic respiratory failure with hypoxia and hypercapnia Current Visit: Yes Status: Acute Plan: Patient is 72 years of age admitted with COPD exacerbation and hypercapnic respiratory failure is doing much better renal function is stable he is mildly anemic cultures are negative possible discharge tomorrow on Dulera and low-dose prednisone 10 mg twice a day for 10 days continue with Diamox Lasix as per renal patient has a excellence specialist Dr. Bairon avitia up in [place] patient has home oxygen
[2022-12-16] MEDS: predniSONE 20 MG TAB PO SCH (21:00)
[2022-12-16] MEDS ORDERED: WATER FOR INJ,STERILE 10 ML ONE (21:11)
[2022-12-16] MEDS: MELATONIN 5 MG TABLET PO PRN (22:38)
[2022-12-17] MEDS: ALBUTEROL 2.5 MG/3 ML NEB SOL NEB SCH ×4 (01:10→19:05)
[2022-12-17] MEDS: IPRATROPIUM BROM 0.5MG/2.5ML NEB SCH ×4 (01:10→19:05)
[2022-12-17] MEDS ORDERED: METHYL SALICYLATE/MENTHOL 3 OZ TUBE TOP PRN (03:42)
[2022-12-17] MEDS ORDERED: LIDOCAINE 4% PATCH TOP PRN (04:01)
[2022-12-17] MEDS: HYDROCODONE/APAP 5/325 MG TAB PO PRN ×4 (04:17→22:28)
--- NOTE | 2022-12-17 05:12 | P.PN ---
Date of Service: 12/17/22 Subjective: Physical Exam: Vitals: reviewed GEN: Alert, oriented, NAD HEENT: Normal conjunctiva, sclera anicteric CV: Regular rate & rhythm, no edema Pulm: Nonlabored respiraitons, diminished ABD: Soft, nontender, nondistended MSK: No joint tenderness Integumentary: No rashes Neuro: Normal speech, normal affect Problem List: Acute on chronic hypoxic/hypercapnic respiratory failure Acute on chronic diastolic CHF COPD CKD 4 Diabetes mellitus type 2insulin-dependent Atrial fibrillation PLAN Continue diamox, RYAN nebs, prednisone on 1.5 L NC; wean as tolerated BiPAP/CPAP as needed Continue lasix nephrology consulted. Echo in June showed normal EF. renal function ~ baseline continue to monitor ACHS Accu-Chek, sliding scale insulin confirm home medications, restart as appropriate continue heparin sq
[2022-12-17] MEDS: INSULIN REGULAR (HUMAN) 100 UNIT/ML SQ SCH ×4 (07:30→21:00)
[2022-12-17] MEDS: ACETAZOLAMIDE 500 MG IV IV SCH ×2 (09:00→20:37)
[2022-12-17] MEDS: DULERA 200/5 (MOMETASONE/FORMOTEROL) INHALER IH SCH ×2 (09:00→20:38)
[2022-12-17] MEDS: predniSONE 20 MG TAB PO SCH ×2 (09:08→20:37)
[2022-12-17] MEDS: HEPARIN 5000 UNIT/ML 1 ML VIAL SQ SCH ×2 (09:09→20:37)
[2022-12-17] MEDS: FUROSEMIDE 40 MG/4 ML VIAL IV SCH ×2 (09:10→16:30)
[2022-12-17] MEDS ORDERED: EPOETIN ALFA-EPBX 10,000 UNIT/ML VIAL SQ ONE (10:45)
--- NOTE | 2022-12-17 12:08 | P.PN ---
Subjective Date of Service: 12/17/22 Chief Complaint: Respiratory failure Patient is improving doing much better Review of Systems General: Weakness Respiratory: Shortness of Breath Physical Examination - Vital Signs Temperature: 98.5 F Blood Pressure: 158/58 Pulse: 72 Respirations: 16 Pulse Ox (%): 95 - Physical Exam General: Alert, Oriented x3 Respiratory: Clear to auscultation bilaterally, Diminished Cardiovascular: No edema, Regular rate/rhythm Assessment And Plan - Current Problems (Diagnosis) (1) Acute on chronic respiratory failure with hypoxia and hypercapnia Current Visit: Yes Status: Acute Plan: Patient is improving doing much better stable for discharge can resume Bhumika and I will also order trilogy discussed with his diamond powder technician regarding a noninvasive ventilator patient is on Brovana and and nebulized Pulmicort at home
--- NOTE | 2022-12-17 17:10 | EKG ---
Test Date: 2022-12-14 Test Time: 16:19:51 Technical Training Instructor: REBECA MEASUREMENT RESULTS: Intervals: Rate: 84 NM: 174 QRSD: 102 QT: 390 QTc: 460 [place]: P: 77 NM: 174 QRS: 83 T: 78 INTERPRETIVE STATEMENTS: Sinus rhythm with premature atrial complexes Incomplete right bundle branch block Borderline ECG Compared to ECG 08/01/2022 09:11:54 Incomplete right bundle-branch block now present Sinus bradycardia no longer present ST (T wave) deviation no longer present Possible ischemia no longer present Prolonged QT interval no longer present Electronically Signed On 12-17-22 17:05:52 CDT by Khang Guerrier
--- NOTE | 2022-12-17 21:07 | P.PN ---
Date of Service: 12/17/22 Vital Signs Temp Pulse Resp BP Pulse Ox 98.1 F 72 14 158/70 H 99 12/17/22 16:00 12/17/22 16:30 12/17/22 16:00 12/17/22 16:30 12/17/22 16:00 Medications Hydrocodone Bitart/Acetaminophen (Hydrocodone/Apap 5/325 Mg Tab) 1 tab PO Q6H PRN PRN Reason: Pain scale 5-7 (Moderate) Last Admin: 12/17/22 16:30 Dose: 1 tab Acetazolamide Sodium (Acetazolamide 500 Mg Iv) 250 mg IV BID [facility] Last Admin: 12/17/22 20:37 Dose: 250 mg Albuterol Sulfate (Albuterol 2.5 Mg/3 Ml Neb Lizabeth) 2.5 mg NEB [id number] [facility] Last Admin: 12/17/22 19:05 Dose: 2.5 mg Furosemide (Furosemide 40 Mg/4 Ml Vial) 40 mg IV BIDL [facility] Last Admin: 12/17/22 16:30 Dose: 40 mg Heparin Sodium (Porcine) (Heparin 5000 Unit/Ml 1 Ml Vial) 5,000 unit SQ Q12HR [facility] Last Admin: 12/17/22 20:37 Dose: 5,000 unit Insulin Human Regular (Insulin Regular (Human) 100 Unit/Ml) 0 unit SQ [facility]; Protocol Last Admin: 12/17/22 15:54 Dose: 4 unit Ipratropium [place] (Ipratropium Brom 0.5mg/2.5ml) 0.5 mg NEB [id number] [facility] Last Admin: 12/17/22 19:05 Dose: 0.5 mg Lidocaine (Lidocaine 4% Patch) 1 patch TOP DAILY PRN PRN Reason: Pain scale 2-4 (Mild) Last Admin: 12/17/22 04:12 Dose: 1 patch Melatonin (Melatonin 5 Mg Tablet) 5 mg PO BEDTIME PRN PRN PRN Reason: INSOMNIA Last Admin: 12/16/22 22:38 Dose: 5 mg Methyl Salicylate (Methyl Salicylate/Menthol 3 Oz Tube) 1 appl TOP BID PRN PRN Reason: Pain scale 2-4 (Mild) Ondansetron HCl (Ondansetron 4 Mg/2 Ml Vial) 4 mg IV Q6HP PRN PRN Reason: NAUSEA / VOMITING Prednisone (Prednisone 20 Mg Tab) 20 mg PO BID [facility] Last Admin: 12/17/22 20:37 Dose: 20 mg Microbiology Results 12/14/22 16:41 Blood - Blood Aerobic Blood Culture - Preliminary No growth in 24 hours. 12/14/22 16:41 Blood - Blood Anaerobic Blood Culture - Preliminary No growth in 24 hours. 12/14/22 16:18 Blood - Blood Aerobic Blood Culture - Preliminary No growth in 24 hours. 12/14/22 16:18 Blood - Blood Anaerobic Blood Culture - Preliminary No growth in 24 hours. Assessment/ Plan: Nephrology Dyspnea improving No chest pain No acute events overnight Vitals, medications, blood work and imaging reviewed in the chart. NAD. NCAT. MMM. Neck supple. Normal respiratory effort. RRR. Abd ND. No C/C. LE Edema none. No rash. AAO. Normal speech. EXAM DESCRIPTION: [facility] Single View12/14/2022 4:53 pm CLINICAL HISTORY: sob COMPARISON: July 2022 chest x-ray and May [address]22 CT FINDINGS: Mild bilateral pulmonary opacities Stable left upper lobe nodule. Refer to the CT chest report for recommendation Heart is moderately enlarged. There may be a small left pleural effusion IMPRESSION: These findings may indicate mild CHF CKD IV with Proteinuria -No NSAIDs HTN with CKD/ CHF -Hold antihypertensives at this time Diastolic CHF, A/C -Continue Lasix & Diamox DM II with CKD -RISS Anemia in CKD -Retacrit X1 Hospitalist note reviewed
[2022-12-17] MEDS ORDERED: METOPROLOL TARTRATE 5 MG/5 ML INJ IV PRN (22:01)
[2022-12-18] MEDS: ALBUTEROL 2.5 MG/3 ML NEB SOL NEB SCH ×2 (02:00→07:30)
[2022-12-18] MEDS: IPRATROPIUM BROM 0.5MG/2.5ML NEB SCH ×2 (02:00→07:30)
[2022-12-18] MEDS: HYDROCODONE/APAP 5/325 MG TAB PO PRN ×2 (04:34→10:44)
[2022-12-18 06:52] LABS: Absolute Lymphocytes (CBC) 0.8 K/uL (0.7-4.9); Hematocrit 30.8 % (39.6-49.0); Lymphocytes % 10.3 % (15.3-44.8); MCV 95.4 fL (80-100); MPV 7.9 fL (7.6-11.3); Platelets 193 thou/uL (152-406); RBC Red Blood Cell Count 3.23 M/uL (4.33-5.43)
[2022-12-18 07:13] LABS: Albumin 2.5 g/dL (3.4-5.0); Bilirubin Total 0.3 mg/dL (0.2-1.0); Phosphorus 3.5 mg/dL (2.5-4.9); Potassium 3.4 mEq/L (3.5-5.1); Protein, Total 5.5 g/dL (6.4-8.2)
[2022-12-18] MEDS: INSULIN REGULAR (HUMAN) 100 UNIT/ML SQ SCH (07:30)
--- NOTE | 2022-12-18 07:53 | RAD REPORT ---
EXAM DESCRIPTION: RAD - Chest Single View - 12/18/2022 6:54 am CLINICAL HISTORY: pneumonia Chest pain. COMPARISON: Chest Single View dated 12/14/2022; Chest Single View dated 08/01/2022; Chest Single View dated 07/03/2022; Chest Single View dated 06/27/2022; Lung Cancer Screening CT W/O dated 05/28/2022 FINDINGS: Portable technique limits examination quality. Mild interstitial prominence with hazy opacification of the left lung base, unchanged. Spiculated nod ule again noted in the left apex, stable. The heart is mildly enlarged in size. Cervical spine hardwa re plate noted. IMPRESSION: Stable chest since 12/14/2022 prior study.
[2022-12-18] MEDS: DULERA 200/5 (MOMETASONE/FORMOTEROL) INHALER IH SCH (09:27)
[2022-12-18] MEDS: HEPARIN 5000 UNIT/ML 1 ML VIAL SQ SCH (09:27)
[2022-12-18] MEDS: predniSONE 20 MG TAB PO SCH (09:27)
[2022-12-18] MEDS: FUROSEMIDE 40 MG/4 ML VIAL IV SCH (09:27)
[2022-12-18] MEDS: ACETAZOLAMIDE 500 MG IV IV SCH (09:57)
[2022-12-18 11:24] VITALS: BP 158/77; TEMP 98.1
[2022-12-18 13:37] VITALS: O2SAT 96
== END 2022-12-18 11:30 | disposition home or self-care (01) | DRG 291 ==
LOC: ER 15:57 → ERHOLD 18:54 → 2ND 20:52
PROVIDERS: ADMIT Internal Medicine Sleep Medicine; ATTEND Hospitalist
PROC: 5A09457 Assistance with Respiratory Ventilation, 24-96 Consecutive Hours, Continuous Positive Airway Pressure (ICD-10-PCS; principal; 2022-12-14)
DX: I13.0 Hypertensive heart and chronic kidney disease with heart failure and stage 1 through stage 4 chronic kidney disease, or unspecified chronic kidney disease (principal); I50.33 Acute on chronic diastolic (congestive) heart failure; J96.21 Acute and chronic respiratory failure with hypoxia; J96.22 Acute and chronic respiratory failure with hypercapnia; J44.1 Chronic obstructive pulmonary disease with (acute) exacerbation; N18.4 Chronic kidney disease, stage 4 (severe); E87.3 Alkalosis; E11.22 Type 2 diabetes mellitus with diabetic chronic kidney disease; E11.40 Type 2 diabetes mellitus with diabetic neuropathy, unspecified; D63.1 Anemia in chronic kidney disease; I48.91 Unspecified atrial fibrillation; N28.9 Disorder of kidney and ureter, unspecified; F03.90 Unspecified dementia, unspecified severity, without behavioral disturbance, psychotic disturbance, mood disturbance, and anxiety; Z23 Encounter for immunization; Z79.4 Long term (current) use of insulin; Z60.2 Problems related to living alone; Z79.52 Long term (current) use of systemic steroids; Z99.81 Dependence on supplemental oxygen; Z90.49 Acquired absence of other specified parts of digestive tract; Z79.899 Other long term (current) drug therapy
CPT/HCPCS: 36415; 36600; 51702; 70450; 71045; 80048; 80053; 81001; 82805; 82947; 83036; 83605; 83735; 83880; 84100; 84439; 84443; 84484; 85025; 85610; 85730; 87040; 87070; 87205; 90471; 90732; 93005; 94640; 94660; 94760; 97116; 97161; 99285; J0696; J1120; J1644; J1815; J1940; J2001; J2920; J2930; J3535; J7512; J7613; J7644; Q2035; Q5106

== ENCOUNTER 2022-12-29 12:27 | Inpatient (IN) | payer OTHER ==
--- OUTSIDE RECORDS SUMMARY | 2022-12-29 13:17 | XMS REPORT | Continuity of Care Document ---
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 Breath. albuterol Yes [id number] 2{puff} Inhale 2 [facility] 90 9-08 Puffs ity of mcg/actuati 00:00: every 6 [place] on inhaler 00 (six) Medical hours as Branch needed for Wheezing or Shortness of Breath. albuterol Yes [id number] 2{puff} Inhale 2 [facility] 90 9-08 Puffs ity of mcg/actuati 00:00: every 6 [place] on inhaler 00 (six) Medical hours as Branch needed for Wheezing or Shortness of Breath. albuterol Yes [id number] 2{puff} Inhale 2 [facility] 90 9-08 Puffs ity of mcg/actuati 00:00: every 6 [place] on inhaler 00 (six) Medical hours as Branch needed for Wheezing or Shortness of Breath. albuterol Yes [id number] 2{puff} Inhale 2 [facility] 90 9-08 Puffs ity of mcg/actuati 00:00: every 6 [place] on inhaler 00 (six) Medical hours as Branch needed for Wheezing or Shortness of Breath. albuterol Yes [id number] 2{puff} Inhale 2 [facility] 90 9-08 Puffs ity of mcg/actuati 00:00: every 6 [place] on inhaler 00 (six) Medical hours as Branch needed for Wheezing or Shortness of Breath. albuterol Yes [id number] 2{puff} Inhale 2 [facility] 90 9-08 Puffs ity of mcg/actuati 00:00: every 6 [place] on inhaler 00 (six) Medical hours as Branch needed for Wheezing or Shortness of Breath. albuterol Yes [id number] 2{puff} Inhale 2 [facility] 90 9-08 Puffs ity of mcg/actuati 00:00: every 6 [place] on inhaler 00 (six) Medical hours as Branch needed for Wheezing or Shortness of Breath. albuterol Yes [id number] 2{puff} Inhale 2 [facility] 90 9-08 Puffs ity of mcg/actuati 00:00: every 6 [place] on inhaler 00 (six) Medical hours as Branch needed for Wheezing or Shortness of Breath. albuterol Yes [id number] 2{puff} Inhale 2 [facility] 90 9-08 Puffs ity of mcg/actuati 00:00: every 6 [place] on inhaler 00 (six) Medical hours as Branch needed for Wheezing or Shortness of Breath. albuterol Yes [id number] 2{puff} Inhale 2 [facility] 90 9-08 Puffs ity of mcg/actuati 00:00: every 6 [place] on inhaler 00 (six) Medical hours as Branch needed for Wheezing or Shortness of Breath. albuterol Yes [id number] 2{puff} Inhale 2 [facility] 90 9-08 Puffs ity of mcg/actuati 00:00: every 6 [place] on inhaler 00 (six) Medical hours as Branch needed for Wheezing or Shortness of Breath. albuterol Yes [id number] 2{puff} Inhale 2 [facility] 90 9-08 Puffs ity of mcg/actuati 00:00: every 6 [place] on inhaler 00 (six) Medical hours as Branch needed for Wheezing or Shortness of Breath. albuterol Yes [id number] 2{puff} Inhale 2 [facility] 90 9-08 Puffs ity of mcg/actuati 00:00: every 6 [place] on inhaler 00 (six) Medical hours as Branch needed for Wheezing or Shortness of Breath. albuterol Yes [id number] 2{puff} Inhale 2 [facility] 90 9-08 Puffs ity of mcg/actuati 00:00: every 6 [place] on inhaler 00 (six) Medical hours as Branch needed for Wheezing or Shortness of Breath. albuterol Yes [id number] 2{puff} Inhale 2 [facility] 90 9-08 Puffs ity of mcg/actuati 00:00: every 6 [place] on inhaler 00 (six) Medical hours as Branch needed for Wheezing or Shortness of Breath. albuterol Yes [id number] 2{puff} Inhale 2 [facility] 90 9-08 Puffs ity of mcg/actuati 00:00: every 6 [place] on inhaler 00 (six) Medical hours as Branch needed for Wheezing or Shortness of Breath. albuterol Yes [id number] 2{puff} Inhale 2 [facility] 90 9-08 Puffs ity of mcg/actuati 00:00: every 6 [place] on inhaler 00 (six) Medical hours as Branch needed for Wheezing or Shortness of Breath. albuterol Yes [id number] 2{puff} Inhale 2 [facility] 90 9-08 Puffs ity of mcg/actuati 00:00: every 6 [place] on inhaler 00 (six) Medical hours as Branch needed for Wheezing or Shortness of Breath. albuterol Yes [id number] 2{puff} Inhale 2 [facility] 90 9-08 Puffs ity of mcg/actuati 00:00: every 6 [place] on inhaler 00 (six) Medical hours as Branch needed for Wheezing or Shortness of Breath. albuterol Yes [id number] 2{puff} Inhale 2 [facility] 90 9-08 Puffs ity of mcg/actuati 00:00: every 6 [place] on inhaler 00 (six) Medical hours as Branch needed for Wheezing or Shortness of Breath. albuterol Yes [id number] 2{puff} Inhale 2 [facility] 90 9-08 Puffs ity of mcg/actuati 00:00: every 6 [place] on inhaler 00 (six) Medical hours as Branch needed for Wheezing or Shortness of Breath. albuterol Yes [id number] 2{puff} Inhale 2 [facility] 90 9-08 Puffs ity of mcg/actuati 00:00: every 6 [place] on inhaler 00 (six) Medical hours as Branch needed for Wheezing or Shortness of Breath. albuterol Yes [id number] 2{puff} Inhale 2 [facility] 90 9-08 Puffs ity of mcg/actuati 00:00: every 6 [place] on inhaler 00 (six) Medical hours as Branch needed for Wheezing or Shortness of Breath. albuterol Yes [id number] 2{puff} Inhale 2 [facility] 90 9-08 Puffs ity of mcg/actuati 00:00: every 6 [place] on inhaler 00 (six) Medical hours as Branch needed for Wheezing or Shortness of Breath. albuterol Yes [id number] 2{puff} Inhale 2 [facility] 90 9-08 Puffs ity of mcg/actuati 00:00: every 6 [place] on inhaler 00 (six) Medical hours as Branch needed for Wheezing or Shortness of Breath. albuterol Yes [id number] 2{puff} Inhale 2 [facility] 90 9-08 Puffs ity of mcg/actuati 00:00: every 6 [place] on inhaler 00 (six) Medical hours as Branch needed for Wheezing or Shortness of Breath. albuterol Yes [id number] 2{puff} Inhale 2 [facility] 90 9-08 Puffs ity of mcg/actuati 00:00: every 6 [place] on inhaler 00 (six) Medical hours as Branch needed for Wheezing or Shortness of Breath. albuterol Yes [id number] 2{puff} Inhale 2 [facility] 90 9-08 Puffs ity of mcg/actuati 00:00: every 6 [place] on inhaler 00 (six) Medical hours as Branch needed for Wheezing or Shortness of Breath. albuterol Yes [id number] 2{puff} Inhale 2 [facility] 90 9-08 Puffs ity of mcg/actuati 00:00: every 6 [place] on inhaler 00 (six) Medical hours as Branch needed for Wheezing or Shortness of Breath. albuterol Yes [id number] 2{puff} Inhale 2 [facility] 90 9-08 Puffs ity of mcg/actuati 00:00: every 6 [place] on inhaler 00 (six) Medical hours as Branch needed for Wheezing or Shortness of Breath. albuterol Yes [id number] 2{puff} Inhale 2 [facility] 90 9-08 Puffs ity of mcg/actuati 00:00: every 6 [place] on inhaler 00 (six) Medical hours as Branch needed for Wheezing or Shortness of Breath. albuterol Yes [id number] 2{puff} Inhale 2 [facility] 90 9-08 Puffs ity of mcg/actuati 00:00: every 6 [place] on inhaler 00 (six) Medical hours as Branch needed for Wheezing or Shortness of Breath. albuterol Yes [id number] 2{puff} Inhale 2 [facility] 90 9-08 Puffs ity of mcg/actuati 00:00: every 6 [place] on inhaler 00 (six) Medical hours as Branch needed for Wheezing or Shortness of Breath. albuterol Yes [id number] 2{puff} Inhale 2 [facility] 90 9-08 Puffs [...] the counter, takes every other day HYDROcodone 2022-0 Yes [id number] 1{tbl} Take 1 Un renetta -acetaminop 8-22 tablet by ity of hen 10-325 00:00: mouth [place] mg tablet 00 every 6 Medical (six) Branch hours as needed for Pain (scale 7-10). Indication s: acute pain HYDROcodone 2022-0 Yes 4647 1{tbl} Take 1 Un renetta -acetaminop 8-22 tablet by ity of hen 10-325 00:00: mouth [place] mg tablet 00 every 6 Medical (six) Branch hours as needed for Pain (scale 7-10). Indication s: acute pain HYDROcodone 2022-0 Yes 4647 1{tbl} Take 1 Un renetta -acetaminop 8-22 tablet by ity of hen 10-325 00:00: mouth [place] mg tablet 00 every 6 Medical (six) Branch hours as needed for Pain (scale 7-10). Indication s: acute pain HYDROcodone 2022-0 Yes 4647 1{tbl} Take 1 Un renetta -acetaminop 8-22 tablet by ity of hen 10-325 00:00: mouth [place] mg tablet 00 every 6 Medical (six) Branch hours as needed for Pain (scale 7-10). Indication s: acute pain HYDROcodone 2022-0 Yes 4647 1{tbl} Take 1 Un renetta [...] (scale 7-10). Indication s: acute pain HYDROcodone 2022-0 Yes 4647 1{tbl} Take 1 Un renetta -acetaminop 8-22 tablet by ity of hen 10-325 00:00: mouth [place] mg tablet 00 every 6 Medical (six) Branch hours as needed for Pain (scale 7-10). Indication s: acute pain HYDROcodone 2022-0 Yes 4647 1{tbl} Take 1 Un renetta -acetaminop 8-22 tablet by ity of hen 10-325 00:00: mouth [place] mg tablet 00 every 6 Medical (six) Branch hours as needed for Pain (scale 7-10). Indication s: acute pain HYDROcodone 2022-0 Yes 4647 1{tbl} Take 1 Un renetta -acetaminop 8-22 tablet by ity of hen 10-325 00:00: mouth [place] mg tablet 00 every 6 Medical (six) Branch hours as needed for Pain (scale 7-10). Indication s: acute pain predniSONE 2022-0 2022- Yes [id number] 20mg Take 1 [facility] 20 mg 8-23 10-28 tablet by ity of tablet 00:00: 04:59 mouth in [place] 00 :00 the Medical morning Branch for 5 days. predniSONE 2022-0 2022- Yes [id number] 20mg Take 1 [facility] 20 mg 8-22 -28 tablet by ity of tablet 00:00: 04:59 mouth in [place] 00 :00 the Medical morning Branch for 5 days. bumetanide 0 Yes .5mg 0.5 mg, Univ ers (BUMEX) 10-22 Oral, ity of tablet 0.5 22:00: QAM+PM, [place] 00 First dose Medical (after Branch last modificati on) on Sat10/22/22 at 1700, Until Discontinu ed, Routine fluticasone 2022-0 Yes 1{spray 1 [place], [facility] propionate 10-22 } Nasal, ity of 50 14:00: DAILY, [place] mcg/actuati 00 First dose Me dical on nasal on Sat Branch spray 1 10/22/22 at [place] 0900, Until Discontinu ed, Routine tamsulosin 2023-0 Yes .4mg 0.4 mg, Univ ers (FLOMAX) 10-22 Oral, ity of capsule 0.4 14:00: DAILY, [place] mg 00 First dose Medical on [facility] 10/22/22 at 0900, Until Discontinu ed, Routine spironolact 2022-0 Yes 12.5mg 12.5 mg, Univers one 10-22 Oral, ity of (ALDACTONE) 14:00: DAILY, [place] tablet 12.5 00 First dose Me dical mg on [facility] 10/22/22 at 0900, Until Discontinu ed, Routine acetaZOLAMI 2022-0 Yes 250mg 250 mg, Un renetta DE (DIAMOX) 10-22 Oral, ity of tablet 250 14:00: DAILY, [place] mg 00 First dose Medical on [facility] 10/22/22 at 0900, Until Discontinu ed, Routine bumetanide 2022-0 2023- No .5mg 0.5 mg, Uni vers (BUMEX) 10-22 Oral, ity of tablet 0.5 14:00: 18:00 DAILY, [place] mg 00 :48 First dose Medical on [facility] 10/22/22 at 0900, Until Discontinu ed, Routine levothyroxi 0 Yes 150ug 150 mcg, U nivers ne 10-22 Oral, ity of (SYNTHROID) 11:00: QAM-0600, [place] tablet 150 00 First dose Med ical mcg on [facility] 10/22/22 at 0600, Until Discontinu ed, Routine pravastatin 2022-0 Yes 40mg 40 mg, Univ ers (PRAVACHOL) 10-22 Oral, QHS, it y of tablet 40 02:00: First dose [place] mg 00 on [facility] 10/21/22 at Branch 2100, Until Discontinu ed, Routine traZODone 2022-0 Yes 50mg 50 mg, Univer s (DESYREL) 10-22 Oral, QHS, ity of tablet 50 02:00: First dose [place] mg 00 on [facility] 10/21/22 at Branch 2100, Until Discontinu ed, Routine mirtazapine 2022-0 Yes 7.5mg 7.5 mg, Un renetta (REMERON) 10-22 Oral, QHS, ity of tablet 7.5 02:00: First dose [place] mg 00 on [facility] 10/21/22 at Branch 2100, Until Discontinu ed, Routine NIFEdipine 2022-0 Yes 30mg 30 mg, Unive rs ER tablet 10-22 Oral, ity of 30 mg 01:00: DAILY, [place] 00 First dose Medical on [facility] 10/21/22 at 2000, Until Discontinu ed, Routine budesonide- 2022-0 Yes 2{puff} 2 Puff, Univers formoteroL 10-22 Inhalation ity of (SYMBICORT) 01:00: , BID, [place] 160-4.5 00 First dose Medica l mcg/actuati on [facility] on inhaler 10/21/22 at 2 Puff 1999, Until Discontinu ed, Routine cloNIDine 0 Yes .2mg 0.2 mg, Unive rs (CATAPRES) 10-22 Oral, ity of tablet 0.2 00:58: TIDPRN, [place] mg 42 Starting Medical on [facility] 10/21/22 at 1958, Until Discontinu ed, Routine, IF bp IS >150/90 predniSONE 2022-0 2022- No 20mg 20 mg, Univ ers (DELTASONE) 10-21-22 Oral, ity of tablet 20 19:30: 13:53 DAILY, 3 [place] mg 00 :00 doses, Medical First dose Branch on [place] 10/21/22 at 1430, Last dose on Sat10/23/22 at 0900, Routine Sliding 2022-0 Yes Subcutaneo Univ ers Scale 8- us, TID ity of Insulin - 17:00: MEALS+HS, [place] Lispro 00 First dose Medical (HumaLOG) on [facility] 10/21/22 at 1200, Until Discontinu ed, Routine dextrose 2022-0 Yes 250mL 250 mL, IV Un renetta 10% (D10W) 10-21 Infusion, ity of bolus 16:31: PRN - SEE [place] infusion 25 INSTRUCTIO Medic al 250 mL , Branch Administer over 60 Minutes, Other, If blood glucose is < or = 70 mg/dL and patient is unable to swallow or has mental status changes, Starting on [place] 10/21/22 at 1131
If blood glucose is [...] glucose is < 80 mg/dL, repeat.
glucagon Yes 1mg 1 mg, Univers (GLUCAGEN 8 Intramuscu ity of DIAGNOSTIC 16:31: lar, PRN, [place] KIT) 23 Starting Medical injection 1 on Sun Branch mg 10/21/22 at 1131, Until Discontinu ed, MARTHA, Blood Glucose < or = 70 mg/dL and patient is NPO, unable to swallow or has mental changes. HYDROcodone Yes 1{tbl} 1 tablet, Univers -acetaminop 10-21 Oral, ity of hen (NORCO) 00:45: Q6HPRN, [place] as 10-325 mg 10 Starting Medica l tablet 1 on [facility] Branch tablet 10/20/22 at 1945, Until Discontinu ed, Routine, Pain (scale 7-10) traMADoL Yes 50mg 50 mg, Univers (ULTRAM) 10-20 Oral, ity of tablet 50 20:55: Q6HPRN, [place] mg 29 Starting Medical on Sat Branch 10/20/22 at 1555, Until Discontinu ed, Routine, Pain (scale 4-6) NaCl 0.9% 2022- No 500mL at 999 Univ ers (NS) bolus 10-20 mL/hr, 500 it y of infusion 20:15: 20:45 mL, IV [place] 500 mL 00 :00 Piggyback, Medical ONCE, 1 Branch dose, On 10/20/22 at 1515, STAT cefTRIAXone 0 2022- Yes 1000mg 1,000 mg, Univers (ROCEPHIN) 10-2026 IV ity of 1,000 mg in 05:30: 05:29 Piggyback, [place] NaCl 0.9% 00 :00 Q24H ABX, Medic al (NS) 100 mL 7 doses, Bran ch MINI-BAG First dose on Sat10/20/22 at 0030, Last dose on Sat10/26/22 at 0030, Administer over 30 Minutes, 100 mL
Reas on for Anti-Infec tive: Documented Infection< br>Documen todd Infection Site: Respirator y
Durat ion of Therapy: 7 days heparin 2022- Yes 5000U 5,000 [facility] (porcine) 8- Units, ity of injection 01:00: Subcutaneo [place] 5,000 Units 00 us, Q12H, Med ical First dose Branch on Sat10/19/22 at 2000, Until Discontinu ed, Routine Sliding No Subcutaneo Uni vers Scale 10-19 us, Q6H, ity of Insulin - 17:00: 16:33 First dose [place] Lispro 00 :06 on Sat Medical (HumaLOG) 10/19/22 at [facility] 1200, Until Discontinu ed, Routine fentaNYL PF No 25ug/h 25-200 U nivers (SUBLIMAZE) 10-19 [...] 1,000 mcg 00 :00 1 dose, On Medi christa Fri Branch 10/19/22 at 1045, Routine budesonide 2022- No .5mg 0.5 mg, Uni vers (PULMICORT 8-18 08-20 Inhalation it y of RESPULE) 15:00: 19:21 , BID, [place] nebulizer 00 :17 First dose Medi christa solution on Sat Branch 0.5 mg 10/19/22 at 1000, Until Discontinu ed, Routine ipratropium Yes 3mL 3 mL, Unive rs -albuteroL 10-19 Inhalation ity of (DUONEB) 14:56: , QIDPRN, [place] 0.5 mg-3 39 Starting Medical mg(2.5 mg on Sat Branch base)/3 mL 10/19/22 at nebulizer 0956, solution 3 Until mL Discontinu ed, Routine, Wheezing rocuronium 2022- No 50mg 50 mg, IV U nivers (ZEMURON) 10-19 Push, ity of injection 14:00: 13:06 ONCE, 1 [place] 50 mg 00 :00 dose, On Medical Fri Branch 10/19/22 at 0900, Routine
food service team member approving Restricted medication : ELSY SLATER rocuronium 2022- No 50mg 50 mg, IV U nivers (ZEMURON) 10-19 Push, ity of injection 13:00: 12:07 ONCE, 1 [place] 50 mg 00 :00 dose, On Medical Fri Branch 10/19/22 at 0800, Routine
food service team member approving Restricted medication : ANNA MARIE BETHEA propofoL IV 2022- No 5ug/kg/ 5-50 Un renetta infusion 10-19 min mcg/kg/min ity of 12:40: 00:50 ?82.6 kg [place] 36 :02 (2.478-24. Medical 78 mL/hr, Branch [...] should be discarded after 12 hours.
succinylcho 2022- No 120mg 120 mg, IV Univers line 10-19 Push, ity of (QUELICIN) 12:00: 11:45 ONCE, 1 [place] injection 00 :00 dose, On Medica l 120 mg Sat10/19/22 at 0700, STAT etomidate 2022- No 24mg 24 mg, Unive rs (AMIDATE) 10-19 Slow IV ity of injection 11:45: 11:45 Push, [place] 24 mg 00 :00 ONCE, 1 Medical dose, On Branch Sat10/19/22 at 0645, STAT magnesium 2022-2022- No 2g 2 g, IV Univ ers sulfate in 10-19 Piggyback, it y of water 2 10:00: 09:39 Administer [place] gram/50 mL 00 :00 over 60 Medica l (4 %) Minutes, Branch infusion 2 ONCE, 1 g dose, On Sat10/19/22 at 0500, Routine bumetanide 2022- No 1.25mg 1.25 mg, Univers (BUMEX) 10-19 Slow IV ity of injection 09:30: 09:26 Push, [place] 1.25 mg 00 :00 ONCE, 1 Medical dose, On Branch Sat10/19/22 at 0430, STAT predniSONE 2022-0 Yes 40mg Take 2 Unive rs 20 mg 10-10 tablets by ity of tablet 00:00: mouth in [place] 00 the Medical morning. Branch predniSONE 2022-0 Yes 40mg Take 2 Unive rs 20 mg 8- tablets by ity of tablet 00:00: mouth in [place] 00 the Medical morning. Branch predniSONE 2022-0 Yes 40mg Take 2 Unive rs 20 mg 8- tablets by ity of tablet 00:00: mouth in [place] 00 the Medical morning. Branch acetaZOLAMI 2022- Yes [id number] 250mg Take 1 Univers DE 250 mg 10-10 tablet by ity of tablet 00:00: 04:59 mouth in [place] 00 :00 the Medical morning Branch for 30 days. spironolact 2022- Yes [id number] 12.5mg Take 0.5 Univers one 25 mg 10-10 tablets by ity of tablet 00:00: 04:59 mouth in [place] 00 :00 the Medical morning Branch for 30 days. acetaZOLAMI 2022- Yes [id number] 250mg Take 1 [facility] DE 250 mg 10-10 tablet by ity of tablet 00:00: 04:59 mouth in [place] 00 :00 the Medical morning Branch for 30 days. spironolact 2022- Yes [id number] 12.5mg Take 0.5 Univers one 25 mg 10-10 tablets by ity of tablet 00:00: 04:59 mouth in [place] 00 :00 the [facility] morning [place] for 30 days. acetaZOLAMI 2022- Yes [id number] 250mg Take 1 Univers DE 250 mg 10-10 tablet by ity of tablet 00:00: 04:59 mouth in [place] 00 :00 the [facility] morning [place] for 30 days. spironolact 2022- Yes [id number] 12.5mg Take 0.5 Univers one 25 mg 10-10 tablets by ity of tablet 00:00: 04:59 mouth in [place] 00 :00 the [facility] morning [place] for 30 days. acetaZOLAMI 2022- Yes [id number] 250mg Take 1 Univers DE 250 mg 10-10 tablet by ity of tablet 00:00: 04:59 mouth in [place] 00 :00 the [facility] morning [place] for 30 days. spironolact 2022- Yes [id number] 12.5mg Take 0.5 Univers one 25 mg 10-10 tablets by ity of tablet 00:00: 04:59 mouth in [place] 00 :00 the [facility] for 30 days. acetaZOLAMI 2022- Yes [id number] 250mg Take 1 Univers DE 250 mg 10-10 tablet by ity of tablet 00:00: 04:59 mouth in [place] 00 :00 the [facility] morning [place] for 30 days. spironolact 2022- Yes [id number] 12.5mg Take 0.5 Univers one 25 mg 10-10 tablets by ity of tablet 00:00: 04:59 mouth in [place] 00 :00 the [facility] morning [place] for 30 days. acetaZOLAMI 2022- Yes [id number] 250mg Take 1 Univers DE 250 mg 10-10 tablet by ity of tablet 00:00: 04:59 mouth in [place] 00 :00 the [facility] morning Branch for 30 days. spironolact 2022- Yes [id number] 12.5mg Take 0.5 Univers one 25 mg 10-10 tablets by ity of tablet 00:00: 04:59 mouth in [place] 00 :00 the [facility] morning Branch for 30 days. acetaZOLAMI 2022- Yes [id number] 250mg Take 1 Univers [place] 250 mg 10-10 tablet by ity of tablet 00:00: 04:59 mouth in [place] 00 :00 the [facility] for 30 days. spironolact 2022- Yes [id number] 12.5mg Take 0.5 Univers one 25 mg 10-10 tablets by ity of tablet 00:00: 04:59 mouth in [place] 00 :00 the [facility] for 30 days. acetaZOLAMI 2022- Yes [id number] 250mg Take 1 [facility] DE 250 mg 10-10 tablet by ity of tablet 00:00: 04:59 mouth in [place] 00 :00 the [facility] morning [place] for 30 days. spironolact 2022- Yes [id number] 12.5mg Take 0.5 Univers one 25 mg 10-10 tablets by ity of tablet 00:00: 04:59 mouth in [place] 00 :00 the [facility] for 30 days. acetaZOLAMI 2022- Yes [id number] 250mg Take 1 [facility] [place] 250 mg 10-10 tablet by ity of tablet 00:00: 04:59 mouth in [place] 00 :00 the [facility] morning [place] for 30 days. spironolact 2022- Yes [id number] 12.5mg Take 0.5 Univers one 25 mg 10-10 tablets by ity of tablet 00:00: 04:59 mouth in [place] 00 :00 the [facility] for 30 days. acetaZOLAMI 2022- Yes [id number] 250mg Take 1 [facility] [place] 250 mg 10-10 tablet by ity of tablet 00:00: 04:59 mouth in [place] 00 :00 the [facility] for 30 days. spironolact 2022- Yes [id number] 12.5mg Take 0.5 Univers one 25 mg 10-10 tablets by ity of tablet 00:00: 04:59 mouth in [place] 00 :00 the [facility] for 30 days. acetaZOLAMI 2022- Yes [id number] 250mg Take 1 [facility] [place] 250 mg 10-10 tablet by ity of tablet 00:00: 04:59 mouth in [place] 00 :00 the [facility] for 30 days. spironolact 2022- Yes [id number] 12.5mg Take 0.5 Univers one 25 mg 10-10 tablets by ity of tablet 00:00: 04:59 mouth in [place] 00 :00 the [facility] for 30 days. acetaZOLAMI 2022- Yes [id number] 250mg Take 1 [facility] [place] 250 mg 10-10 tablet by ity of tablet 00:00: 04:59 mouth in [place] 00 :00 the [facility] for 30 days. spironolact 2022- Yes [id number] 12.5mg Take 0.5 Univers one 25 mg 10-10 tablets by ity of tablet 00:00: 04:59 mouth in [place] 00 :00 the [facility] for 30 days. acetaZOLAMI 2022- Yes [id number] 250mg Take 1 [facility] [place] 250 mg 10-10 tablet by ity of tablet 00:00: 04:59 mouth in [place] 00 :00 the [facility] for 30 days. spironolact 2022- Yes [id number] 12.5mg Take 0.5 Univers one 25 mg 10-10 tablets by ity of tablet 00:00: 04:59 mouth in [place] 00 :00 the [facility] for 30 days. acetaZOLAMI 2022- Yes [id number] 250mg Take 1 [facility] [place] 250 mg 10-10 tablet by ity of tablet 00:00: 04:59 mouth in [place] 00 :00 the [facility] for 30 days. spironolact 2022- Yes [id number] 12.5mg Take 0.5 Univers one 25 mg 8-09 09-09 tablets by ity of tablet 00:00: 04:59 mouth in [place] 00 :00 the Medical morning Branch for 30 days. predniSONE 2023-0 2023- No 40mg Take 2 Univ ers 20 mg 10-10 08-22 tablets by ity of tablet 00:00: 00:00 mouth in [place] 00 :00 the Medical morning. Branch oxymetazoli 2022-0 Yes 1{puff} Use 1 Puff [facility] ne HCl 8-08 in each ity of (AFRIN 18:56: nostril [place] NASAL) 27 every Medical other day. Branch Patient takes afrin over the counter, takes every other day oxymetazoli 2022-0 Yes 1{puff} Use 1 Puff [facility] ne HCl 8-08 in each ity of (AFRIN 18:56: nostril [place] NASAL) 27 every Medical other day. Branch Patient takes afrin over the counter, takes every other day oxymetazoli 2022-0 Yes 1{puff} Use 1 Puff [facility] ne HCl 8-08 in each ity of (AFRIN 18:56: nostril [place] NASAL) 27 every Medical other day. Branch Patient takes afrin over the counter, takes every other day tamsulosin 2022-0 Yes .4mg 0.4 mg, Univ ers (FLOMAX) 8-08 Oral, QHS, ity o f capsule 0.4 02:00: First dose [place] mg 00 (after Medical last Branch modificati on) on Sat10/08/22 at 2100, Until Discontinu ed, Routine hydrOXYzine 2022-0 Yes [id number] 25mg Take 1 [facility] 25 mg 8-08 tablet by ity of tablet 00:00: mouth [place] 00 every 12 Medical (twelve) Branch hours as needed for Anxiety or Itching. baclofen 5 2022-0 Yes [id number] 5mg Take 1 U nivers mg tablet 8-08 tablet by ity o f 00:00: mouth 3 [place] 00 (three) Medical times Branch daily as needed (Muscle spasms). hydrOXYzine 3-0 Yes [id number] 25mg Take 1 [facility] 25 mg 8-08 tablet by ity of tablet 00:00: mouth [place] 00 every 12 Medical (twelve) Branch hours as needed for Anxiety or Itching. baclofen 5 2022-0 Yes [id number] 5mg Take 1 U nivers mg tablet 8-08 tablet by ity o f 00:00: mouth 3 [place] 00 (three) Medical times Branch daily as needed (Muscle spasms). hydrOXYzine 2022-0 Yes [id number] 25mg Take 1 [facility] 25 mg 8-08 tablet by ity of tablet 00:00: mouth [place] 00 every 12 Medical (twelve) Branch hours as needed for Anxiety or Itching. baclofen 5 2022-0 Yes [id number] 5mg Take 1 U nivers mg tablet 8-08 tablet by ity o f 00:00: mouth 3 [place] 00 (three) Medical times Branch daily as needed (Muscle spasms). hydrOXYzine 2022-0 Yes [id number] 25mg Take 1 [facility] 25 mg 8-08 tablet by ity of tablet 00:00: mouth [place] 00 every 12 Medical (twelve) Branch hours as needed for Anxiety or Itching. baclofen 5 2022-0 Yes [id number] 5mg Take 1 U nivers mg tablet 8-08 tablet by ity o f 00:00: mouth 3 [place] 00 (three) Medical times Branch daily as needed (Muscle spasms). hydrOXYzine 2022-0 Yes [id number] 25mg Take 1 [facility] 25 mg 8-08 tablet by ity of tablet 00:00: mouth [place] 00 every 12 Medical (twelve) Branch hours as needed for Anxiety or Itching. baclofen 5 2022-0 Yes [id number] 5mg Take 1 U nivers mg tablet 8-08 tablet by ity o f 00:00: mouth 3 [place] 00 (three) Medical times Branch daily as needed (Muscle spasms). hydrOXYzine 2022-0 Yes [id number] 25mg Take 1 [facility] 25 mg 8-08 tablet by ity of tablet 00:00: mouth [place] 00 every 12 Medical (twelve) Branch hours as needed for Anxiety or Itching. baclofen 5 2022-0 Yes [id number] 5mg Take 1 U nivers mg tablet 8-08 tablet by ity o f 00:00: mouth 3 [place] 00 (three) Medical times Branch daily as needed (Muscle spasms). hydrOXYzine 3-0 Yes [id number] 25mg Take 1 [facility] 25 mg 8-08 tablet by ity of tablet 00:00: mouth [place] 00 every 12 Medical (twelve) Branch hours as needed for Anxiety or Itching. baclofen 5 2023-0 Yes [id number] 5mg Take 1 U n[facility] mg tablet 8-08 tablet by ity o f 00:00: mouth 3 [place] 00 (three) Medical times Branch daily as needed (Muscle spasms). hydrOXYzine 2023-0 Yes [id number] 25mg Take 1 [facility] 25 mg 8-08 tablet by ity of tablet 00:00: mouth [place] 00 every 12 Medical (twelve) Branch hours as needed for Anxiety or Itching. baclofen 5 3-0 Yes [id number] 5mg Take 1 U n[facility] mg tablet 8-08 tablet by ity o f 00:00: mouth 3 [place] 00 (three) Medical times Branch daily as needed (Muscle spasms). hydrOXYzine 3-0 Yes [id number] 25mg Take 1 [facility] 25 mg 8-08 tablet by ity of tablet 00:00: mouth [place] 00 every 12 Medical (twelve) Branch hours as needed for Anxiety or Itching. baclofen 5 3-0 Yes [id number] 5mg Take 1 U nivers mg tablet 8-08 tablet by ity o f 00:00: mouth 3 [place] 00 (three) Medical times Branch daily as needed (Muscle spasms). hydrOXYzine 3-0 Yes [id number] 25mg Take 1 [facility] 25 mg 8-08 tablet by ity of tablet 00:00: mouth [place] 00 every 12 Medical (twelve) Branch hours as needed for Anxiety or Itching. baclofen 5 3-0 Yes [id number] 5mg Take 1 U nivers mg tablet 8-08 tablet by ity o f 00:00: mouth 3 [place] 00 (three) Medical times Branch daily as needed (Muscle spasms). hydrOXYzine 2023-0 Yes [id number] 25mg Take 1 [facility] 25 mg 8-08 tablet by ity of tablet 00:00: mouth [place] 00 every 12 Medical (twelve) Branch hours as needed for Anxiety or Itching. baclofen 5 3-0 Yes [id number] 5mg Take 1 [facility] n[facility] mg tablet 8-08 tablet by ity o f 00:00: mouth 3 [place] 00 (three) Medical times Branch daily as needed (Muscle spasms). hydrOXYzine 2023-0 Yes [id number] 25mg Take 1 [facility] 25 mg 8-08 tablet by ity of tablet 00:00: mouth [place] 00 every 12 Medical (twelve) Branch hours as needed for Anxiety or Itching. baclofen 5 3-0 Yes [id number] 5mg Take 1 [facility] nivers mg tablet 8-08 tablet by ity o f 00:00: mouth 3 [place] 00 (three) Medical times Branch daily as needed (Muscle spasms). hydrOXYzine 2023-0 Yes [id number] 25mg Take 1 [facility] 25 mg 8-08 tablet by ity of tablet 00:00: mouth [place] 00 every 12 Medical (twelve) Branch hours as needed for Anxiety or Itching. baclofen 5 2022-0 Yes [id number] 5mg Take 1 U n[facility] mg tablet 8-08 tablet by ity o f 00:00: mouth 3 [place] 00 (three) Medical times Branch daily as needed (Muscle spasms). hydrOXYzine 3-0 Yes [id number] 25mg Take 1 [facility] 25 mg 8-08 tablet by ity of tablet 00:00: mouth [place] 00 every 12 Medical (twelve) Branch hours as needed for Anxiety or Itching. baclofen 5 2022-0 Yes [id number] 5mg Take 1 U nivers mg tablet 8-08 tablet by ity o f 00:00: mouth 3 [place] 00 (three) Medical times Branch daily as needed (Muscle spasms). hydrOXYzine 3-0 Yes [id number] 25mg Take 1 [facility] 25 mg 8-08 tablet by ity of tablet 00:00: mouth [place] 00 every 12 Medical (twelve) Branch hours as needed for Anxiety or Itching. baclofen 5 3-0 Yes [id number] 5mg Take 1 [facility] nivers mg tablet 8-08 tablet by ity o f 00:00: mouth 3 [place] 00 (three) Medical times Branch daily as needed (Muscle spasms). hydrOXYzine 2023-0 Yes [id number] 25mg Take 1 [facility] 25 mg 8-08 tablet by ity of tablet 00:00: mouth [place] 00 every 12 Medical (twelve) Branch hours as needed for Anxiety or Itching. baclofen 5 3-0 Yes [id number] 5mg Take 1 [facility] nivers mg tablet 8-08 tablet by ity o f 00:00: mouth 3 [place] 00 (three) Medical times Branch daily as needed (Muscle spasms). hydrOXYzine 2023-0 Yes [id number] 25mg Take 1 [facility] 25 mg 8-08 tablet by ity of tablet 00:00: mouth [place] 00 every 12 Medical (twelve) Branch hours as needed for Anxiety or Itching. baclofen 5 3-0 Yes [id number] 5mg Take 1 U nivers mg tablet 8-08 tablet by ity o f 00:00: mouth 3 [place] 00 (three) Medical times Branch daily as needed (Muscle spasms). hydrOXYzine 3-0 Yes [id number] 25mg Take 1 [facility] 25 mg 8-08 tablet by ity of tablet 00:00: mouth [place] 00 every 12 Medical (twelve) Branch hours as needed for Anxiety or Itching. baclofen 5 2022-0 Yes [id number] 5mg Take 1 U nivers mg tablet 8-08 tablet by ity o f 00:00: mouth 3 [place] 00 (three) Medical times Branch daily as needed (Muscle spasms). hydrOXYzine 3-0 Yes [id number] 25mg Take 1 [facility] 25 mg 8-08 tablet by ity of tablet 00:00: mouth [place] 00 every 12 Medical (twelve) Branch hours as needed for Anxiety or Itching. baclofen 5 2022-0 Yes [id number] 5mg Take 1 [facility] nivers mg tablet 8-08 tablet by ity o f 00:00: mouth 3 [place] 00 (three) Medical times Branch daily as needed (Muscle spasms). hydrOXYzine 3-0 Yes [id number] 25mg Take 1 [facility] 25 mg 8-08 tablet by ity of tablet 00:00: mouth [place] 00 every 12 Medical (twelve) Branch hours as needed for Anxiety or Itching. baclofen 5 3-0 Yes [id number] 5mg Take 1 [facility] nivers mg tablet 8-08 tablet by ity o f 00:00: mouth 3 [place] 00 (three) Medical times Branch daily as needed (Muscle spasms). hydrOXYzine 2023-0 Yes [id number] 25mg Take 1 [facility] 25 mg 8-08 tablet by ity of tablet 00:00: mouth [place] 00 every 12 Medical (twelve) Branch hours as needed for Anxiety or Itching. baclofen 5 3-0 Yes [id number] 5mg Take 1 [facility] nivers mg tablet 8-08 tablet by ity o f 00:00: mouth 3 [place] 00 (three) Medical times Branch daily as needed (Muscle spasms). hydrOXYzine 3-0 Yes [id number] 25mg Take 1 [facility] 25 mg 8-08 tablet by ity of tablet 00:00: mouth [place] 00 every 12 Medical (twelve) Branch hours as needed for Anxiety or Itching. baclofen 5 2022-0 Yes [id number] 5mg Take 1 [facility] nivers mg tablet 8-08 tablet by ity o f 00:00: mouth 3 [place] 00 (three) Medical times Branch daily as needed (Muscle spasms). hydrOXYzine 2022-0 Yes [id number] 25mg Take 1 [facility] 25 mg 8-08 tablet by ity of tablet 00:00: mouth [place] 00 every 12 Medical (twelve) Branch hours as needed for Anxiety or Itching. baclofen 5 2022-0 Yes [id number] 5mg Take 1 [facility] n[facility] mg tablet 8-08 tablet by ity o f 00:00: mouth 3 [place] 00 (three) Medical times Branch daily as needed (Muscle spasms). hydrOXYzine 2022-0 Yes [id number] 25mg Take 1 [facility] 25 mg 8-08 tablet by ity of tablet 00:00: mouth [place] 00 every 12 Medical (twelve) Branch hours as needed for Anxiety or Itching. baclofen 5 2022-0 Yes [id number] 5mg Take 1 [facility] nivers mg tablet 8-08 tablet by ity o f 00:00: mouth 3 [place] 00 (three) Medical times Branch daily as needed (Muscle spasms). hydrOXYzine 3-0 Yes [id number] 25mg Take 1 [facility] 25 mg 8-08 tablet by ity of tablet 00:00: mouth [place] 00 every 12 Medical (twelve) Branch hours as needed for Anxiety or Itching. baclofen 5 2022-0 Yes [id number] 5mg Take 1 [facility] nivers mg tablet 8-08 tablet by ity o f 00:00: mouth 3 [place] 00 (three) Medical times Branch daily as needed (Muscle spasms). hydrOXYzine 2023-0 Yes [id number] 25mg Take 1 [facility] 25 mg 8-08 tablet by ity of tablet 00:00: mouth [place] 00 every 12 Medical (twelve) Branch hours as needed for Anxiety or Itching. baclofen 5 3-0 Yes [id number] 5mg Take 1 [facility] nivers mg tablet 8-08 tablet by ity o f 00:00: mouth 3 [place] 00 (three) Medical times Branch daily as needed (Muscle spasms). hydrOXYzine 2023-0 Yes [id number] 25mg Take 1 [facility] 25 mg 8-08 tablet by ity of tablet 00:00: mouth [place] 00 every 12 Medical (twelve) Branch hours as needed for Anxiety or Itching. baclofen 5 3-0 Yes [id number] 5mg Take 1 U nivers mg tablet 8-08 tablet by ity o f 00:00: mouth 3 [place] 00 (three) Medical times Branch daily as needed (Muscle spasms). hydrOXYzine 2023-0 Yes [id number] 25mg Take 1 [facility] 25 mg 8-08 tablet by ity of tablet 00:00: mouth [place] 00 every 12 Medical (twelve) Branch hours as needed for Anxiety or Itching. baclofen 5 3-0 Yes [id number] 5mg Take 1 U nivers mg tablet 8-08 tablet by ity o f 00:00: mouth 3 [place] 00 (three) Medical times Branch daily as needed (Muscle spasms). hydrOXYzine 2023-0 Yes [id number] 25mg Take 1 [facility] 25 mg 8-08 tablet by ity of tablet 00:00: mouth [place] 00 every 12 Medical (twelve) Branch hours as needed for Anxiety or Itching. baclofen 5 3-0 Yes [id number] 5mg Take 1 U nivers mg tablet 8-08 tablet by ity o f 00:00: mouth 3 [place] 00 (three) Medical times Branch daily as needed (Muscle spasms). hydrOXYzine 2023-0 Yes [id number] 25mg Take 1 [facility] 25 mg 8-08 tablet by ity of tablet 00:00: mouth [place] 00 every 12 Medical (twelve) Branch hours as needed for Anxiety or Itching. baclofen 5 3-0 Yes [id number] 5mg Take 1 [facility] nivers mg tablet 8-08 tablet by ity o f 00:00: mouth 3 [place] 00 (three) Medical times Branch daily as needed (Muscle spasms). hydrOXYzine 2023-0 Yes [id number] 25mg Take 1 [facility] 25 mg 8-08 tablet by ity of tablet 00:00: mouth [place] 00 every 12 Medical (twelve) Branch hours as needed for Anxiety or Itching. baclofen 5 2023-0 Yes [id number] 5mg Take 1 [facility] nivers mg tablet 8-08 tablet by ity o f 00:00: mouth 3 [place] 00 (three) Medical times Branch daily as needed (Muscle spasms). hydrOXYzine 3-0 Yes [id number] 25mg Take 1 [facility] 25 mg 8-08 tablet by ity of tablet 00:00: mouth [place] 00 every 12 Medical (twelve) Branch hours as needed for Anxiety or Itching. baclofen 5 3-0 Yes [id number] 5mg Take 1 [facility] nivers mg tablet 8-08 tablet by ity o f 00:00: mouth 3 [place] 00 (three) Medical times Branch daily as needed (Muscle spasms). hydrOXYzine 2022-0 Yes [id number] 25mg Take 1 [facility] 25 mg 8-08 tablet by ity of tablet 00:00: mouth [place] 00 every 12 Medical (twelve) Branch hours as needed for Anxiety or Itching. baclofen 5 2022-0 Yes [id number] 5mg Take 1 [facility] nivers mg tablet 8-08 tablet by ity o f 00:00: mouth 3 [place] 00 (three) Medical times Branch daily as needed (Muscle spasms). hydrOXYzine 3-0 Yes [id number] 25mg Take 1 [facility] 25 mg 8-08 tablet by ity of tablet 00:00: mouth [place] 00 every 12 Medical (twelve) Branch hours as needed for Anxiety or Itching. baclofen 5 3-0 Yes [id number] 5mg Take 1 U nivers mg tablet 8-08 tablet by ity o f 00:00: mouth 3 [place] 00 (three) Medical times Branch daily as needed (Muscle spasms). hydrOXYzine 3-0 Yes [id number] 25mg Take 1 [facility] 25 mg 8-08 tablet by ity of tablet 00:00: mouth [place] 00 every 12 Medical (twelve) Branch hours as needed for Anxiety or Itching. baclofen 5 3-0 Yes [id number] 5mg Take 1 U nivers mg tablet 8-08 tablet by ity o f 00:00: mouth 3 [place] 00 (three) Medical times Branch daily as needed (Muscle spasms). hydrOXYzine 2023-0 Yes [id number] 25mg Take 1 [facility] 25 mg 8-08 tablet by ity of tablet 00:00: mouth [place] 00 every 12 Medical (twelve) Branch hours as needed for Anxiety or Itching. baclofen 5 3-0 Yes [id number] 5mg Take 1 U nivers mg tablet 8-08 tablet by ity o f 00:00: mouth 3 [place] 00 (three) Medical times Branch daily as needed (Muscle spasms). hydrOXYzine 2023-0 Yes [id number] 25mg Take 1 [facility] 25 mg 8-08 tablet by ity of tablet 00:00: mouth [place] 00 every 12 Medical (twelve) Branch hours as needed for Anxiety or Itching. baclofen 5 3-0 Yes [id number] 5mg Take 1 U nivers mg tablet 8-08 tablet by ity o f 00:00: mouth 3 [place] 00 (three) Medical times Branch daily as needed (Muscle spasms). hydrOXYzine 3-0 Yes [id number] 25mg Take 1 [facility] 25 mg 8-08 tablet by ity of tablet 00:00: mouth [place] 00 every 12 Medical (twelve) Branch hours as needed for Anxiety or Itching. baclofen 5 3-0 Yes [id number] 5mg Take 1 U nivers mg tablet 8-08 tablet by ity o f 00:00: mouth 3 [place] 00 (three) Medical times Branch daily as needed (Muscle spasms). hydrOXYzine 3-0 Yes [id number] 25mg Take 1 [facility] 25 mg 8-08 tablet by ity of tablet 00:00: mouth [place] 00 every 12 Medical (twelve) Branch hours as needed for Anxiety or Itching. baclofen 5 3-0 Yes [id number] 5mg Take 1 U nivers mg tablet 8-08 tablet by ity o f 00:00: mouth 3 [place] 00 (three) Medical times Branch daily as needed (Muscle spasms). hydrOXYzine 2023-0 Yes [id number] 25mg Take 1 [facility] 25 mg 8-08 tablet by ity of tablet 00:00: mouth [place] 00 every 12 Medical (twelve) Branch hours as needed for Anxiety or Itching. baclofen 5 3-0 Yes [id number] 5mg Take 1 U nivers mg tablet 8-08 tablet by ity o f 00:00: mouth 3 [place] 00 (three) Medical times Branch daily as needed (Muscle spasms). hydrOXYzine 2023-0 Yes [id number] 25mg Take 1 [facility] 25 mg 8-08 tablet by ity of tablet 00:00: mouth [place] 00 every 12 Medical (twelve) Branch hours as needed for Anxiety or Itching. baclofen 5 3-0 Yes [id number] 5mg Take 1 U nivers mg tablet 8-08 tablet by ity o f 00:00: mouth 3 [place] 00 (three) Medical times Branch daily as needed (Muscle spasms). hydrOXYzine 2023-0 Yes [id number] 25mg Take 1 [facility] 25 mg 8-08 tablet by ity of tablet 00:00: mouth [place] 00 every 12 Medical (twelve) Branch hours as needed for Anxiety or Itching. baclofen 5 2022-0 Yes [id number] 5mg Take 1 U nivers mg tablet 8-08 tablet by ity o f 00:00: mouth 3 [place] 00 (three) Medical times Branch daily as needed (Muscle spasms). hydrOXYzine 2023-0 Yes [id number] 25mg Take 1 [facility] 25 mg 8-08 tablet by ity of tablet 00:00: mouth [place] 00 every 12 Medical (twelve) Branch hours as needed for Anxiety or Itching. baclofen 5 2022-0 Yes [id number] 5mg Take 1 U nivers mg tablet 8-08 tablet by ity o f 00:00: mouth 3 [place] 00 (three) Medical times Branch daily as needed (Muscle spasms). hydrOXYzine 3-0 Yes [id number] 25mg Take 1 [facility] 25 mg 8-08 tablet by ity of tablet 00:00: mouth [place] 00 every 12 Medical (twelve) Branch hours as needed for Anxiety or Itching. baclofen 5 3-0 Yes [id number] 5mg Take 1 U nivers mg tablet 8-08 tablet by ity o f 00:00: mouth 3 [place] 00 (three) Medical times Branch daily as needed (Muscle spasms). hydrOXYzine 2023-0 Yes [id number] 25mg Take 1 [facility] 25 mg 8-08 tablet by ity of tablet 00:00: mouth [place] 00 every 12 Medical (twelve) Branch hours as needed for Anxiety or Itching. baclofen 5 3-0 Yes [id number] 5mg Take 1 U nivers mg tablet 8-08 tablet by ity o f 00:00: mouth 3 [place] 00 (three) Medical times Branch daily as needed (Muscle spasms). hydrOXYzine 2023-0 Yes [id number] 25mg Take 1 [facility] 25 mg 8-08 tablet by ity of tablet 00:00: mouth [place] 00 every 12 Medical (twelve) Branch hours as needed for Anxiety or Itching. baclofen 5 2022-0 Yes [id number] 5mg Take 1 U nivers mg tablet 8-08 tablet by ity o f 00:00: mouth 3 [place] 00 (three) Medical times Branch daily as needed (Muscle spasms). hydrOXYzine 3-0 Yes [id number] 25mg Take 1 [facility] 25 mg 8-08 tablet by ity of tablet 00:00: mouth [place] 00 every 12 Medical (twelve) Branch hours as needed for Anxiety or Itching. baclofen 5 2022-0 Yes [id number] 5mg Take 1 U nivers mg tablet 8-08 tablet by ity o f 00:00: mouth 3 [place] 00 (three) Medical times Branch daily as needed (Muscle spasms). hydrOXYzine 2022-0 Yes [id number] 25mg Take 1 [facility] 25 mg 8-08 tablet by ity of tablet 00:00: mouth [place] 00 every 12 Medical (twelve) Branch hours as needed for Anxiety or Itching. baclofen 5 2022-0 Yes [id number] 5mg Take 1 U nivers mg tablet 8-08 tablet by ity o f 00:00: mouth 3 [place] 00 (three) Medical times Branch daily as needed (Muscle spasms). hydrOXYzine 3-0 Yes [id number] 25mg Take 1 [facility] 25 mg 8-08 tablet by ity of tablet 00:00: mouth [place] 00 every 12 Medical (twelve) Branch hours as needed for Anxiety or Itching. baclofen 5 2022-0 Yes [id number] 5mg Take 1 U nivers mg tablet 8-08 tablet by ity o f 00:00: mouth 3 [place] 00 (three) Medical times Branch daily as needed (Muscle spasms). bumetanide 3-0 2022- Yes [id number] .5mg Take 1 [facility] 0.5 mg 8-08 09-08 tablet by ity of tablet 00:00: 04:59 mouth in [place] 00 :00 the Medical morning Branch for 30 days. bumetanide 3-0 2022- Yes [id number] .5mg Take 1 [facility] 0.5 mg 8-08 09-08 tablet by ity of tablet 00:00: 04:59 mouth in [place] 00 :00 the Medical morning Branch for 30 days. bumetanide 2022- Yes [id number] .5mg Take 1 [facility] 0.5 mg 10-09 tablet by ity of tablet 00:00: 04:59 mouth in [place] 00 :00 the [facility] for 30 days. bumetanide 2022-0 2022- Yes [id number] .5mg Take 1 [facility] 0.5 mg 10-09 tablet by ity of tablet 00:00: 04:59 mouth in [place] 00 :00 [facility] for 30 days. bumetanide 2022-0 2022- Yes [id number] .5mg Take 1 [facility] 0.5 mg 10-09 tablet by ity of tablet 00:00: 04:59 mouth in [place] 00 :00 the [facility] for 30 days. bumetanide 0 2022- Yes [id number] .5mg Take 1 [facility] 0.5 mg 10-09 tablet by ity of tablet 00:00: 04:59 mouth in [place] 00 :00 [facility] for 30 days. bumetanide 2022- Yes [id number] .5mg Take 1 [facility] 0.5 mg 10-09 tablet by ity of tablet 00:00: 04:59 mouth in [place] 00 :00 [facility] for 30 days. hydrOXYzine Yes 25mg 25 mg, Univ ers (ATARAX) 10-08 Oral, ity of tablet 25 23:15: [id number], [place] mg 00 Starting Medical on Sat [place] 10/08/22 at 1815, Until Discontinu ed, Anxiety, Itching baclofen 0 Yes 5mg 5 mg, Univers (LIORESAL) 10-08 Oral, ity of tablet 5 mg 23:15: TIDPRN, [place] 00 Starting Medical on Sat [place] 10/08/22 at 1815, Until Discontinu ed, Routine, Muscle spasms ipratropium 0 Yes 3mL 3 mL, Unive rs -albuteroL 10-08 Inhalation ity of (DUONEB) 23:00: , Q6H, [place] 0.5 mg-3 00 First dose Medic al mg(2.5 mg on Sat [place] base)/3 mL 10/08/22 at nebulizer 1800, solution 3 Until mL Discontinu ed, Routine predniSONE 2022- Yes 40mg 40 mg, Univ ers (DELTASONE) 10-0812 Oral, ity of tablet 40 22:45: 13:59 DAILY, 5 [place] mg 00 :00 doses, Medical First dose Branch on Sat10/08/22 at 1745, Last dose on Sat10/12/22 at 0900, Routine Sliding Yes Subcutaneo Univ ers Scale 10-08 us, TID ity of Insulin - 22:00: MEALS+HS, [place] Lispro 00 First dose Medical (HumaLOG) on Sat Branch 10/08/22 at 1700, Until Discontinu ed, Routine glucagon Yes 1mg 1 mg, Univers (GLUCAGEN 10-08 Intramuscu ity of DIAGNOSTIC 19:58: lar, PRN, [place] KIT) 40 Starting Medical injection 1 on Sat Branch 10/08/22 at 1458, Until Discontinu ed, MARTHA, Blood Glucose < or = 70 mg/dL and patient is NPO, unable to swallow or has mental changes. dextrose 50 Yes 25mL 25 mL, Univ ers % in water 10-08 Slow IV ity of (D50W) 19:58: Push, PRN, [place] injection 40 Starting Medica l 25 mL on Sat Branch 10/08/22 at 1458, Until Discontinu ed, MARTHA, [...] 500mg 500 mg, U nivers n 10-07 Oral, ity of (ZITHROMAX) 23:00: 22:27 DAILY, 1 [place] tablet 500 00 :00 dose, Medical mg First dose Branch on Sat10/07/22 at 1800, MARTHA
Re ason for Anti-Infec tive: Empiric Therapy for Suspected Infection< br>Empiric Therapy Site: Respirator y
Durat ion of therapy: 72 hours pravastatin Yes 40mg 40 mg, Univ ers (PRAVACHOL) 10-07 Oral, QHS, it y of tablet 40 02:00: First dose [place] mg 00 on [facility] Medical 10/06/22 at Branch 2100, Until Discontinu ed, Routine mirtazapine Yes 7.5mg 7.5 mg, Un renetta (REMERON) 10-07 Oral, QHS, ity of tablet 7.5 02:00: First dose [place] mg 00 on [facility] 10/06/22 at Branch 2100, Until Discontinu ed, Routine traZODone 2022- No 50mg 50 mg, Unive rs (DESYREL) 10-07 08-07 Oral, QHS, ity of tablet 50 02:00: 22:41 First dose [place] mg 00 :01 on [facility] 10/06/22 at Branch 2100, Until Discontinu ed, Routine furosemide 2022- No 20mg 20 mg, IV U nivers (LASIX) 10-07 08-06 Push, ity of injection 01:00: 14:08 Q12H, [place] 20 mg 00 :19 First dose Medical (after Branch last modificati on) on [facility] 10/06/22 at 2000, Until Discontinu ed, Routine cefTRIAXone 2022- Yes 1000mg 1,000 mg, Univers (ROCEPHIN) 10-06 08-10 IV ity of 1,000 mg in 22:00: 21:59 [facility], [place] NaCl 0.9% 00 :00 Q24H ABX, Medic al (NS) 100 mL 5 doses, Bran ch MINI-BAG First dose on Sat10/06/22 at 1700, Last dose on Sat10/10/22 at 1700, Administer over 30 Minutes, 100 mL
Reas on for Anti-Infec tive: Empiric Therapy for Suspected Infection< br>Empiric Therapy Site: Respirator y
Durat ion of therapy: 5 days spironolact Yes 12.5mg 12.5 mg, Univers one 10-06 Oral, ity of (ALDACTONE) 17:45: DAILY, [place] tablet 12.5 00 First dose Me dical mg on [facility] Branch 10/06/22 at 1245, Until Discontinu ed, Routine acetaZOLAMI 2022-0 Yes 250mg 250 mg, Un renetta DE (DIAMOX) 10-06 Oral, ity of tablet 250 17:45: DAILY, [place] mg 00 First dose Medical on [facility] Branch 10/06/22 at 1245, Until Discontinu ed, Routine NIFEdipine 2022-0 Yes 30mg 30 mg, Unive rs ER tablet 10-06 Oral, QAM, ity of 30 mg 14:00: First dose [place] 00 on [facility] Medical 10/06/22 at Branch 0900, Until Discontinu ed, Routine magnesium 2022-0 Yes 400mg 400 mg, Univ ers oxide 10-06 Oral, ity of (MAG-OX 14:00: DAILY, [place] 400) tablet 00 First dose Me dical 400 mg on [facility] 10/06/22 at 0900, Until Discontinu ed ergocalcife 2022-0 Yes [id number] 50,000 Un renetta rol 10-06 Units, ity of (vitamin 14:00: Oral, [place] d2) 00 QWEEKLY, Medical (CALCIFEROL First dose Br anch ) capsule on [facility] 50,000 10/06/22 at Units 0900, Until Discontinu ed, Routine tamsulosin 2022-0 2023- No .4mg 0.4 mg, Uni vers (FLOMAX) 10-06 08-07 Oral, ity of capsule 0.4 14:00: 12:54 DAILY, [place] mg 00 :51 First dose Medical on [facility] Branch 10/06/22 at 0900, Until Discontinu ed, Routine glipiZIDE 2022-0 Yes 2.5mg 2.5 mg, Univ ers XL 05 Oral, BID, ity of (GLUCOTROL 13:00: First dose [place] XL) tablet 00 on [facility] Medical 2.5 mg 10/06/22 at Branch 0800, Until Discontinu ed, Routine budesonide 2022-0 Yes .5mg 0.5 mg, Univ ers (PULMICORT 10-06 Inhalation ity of RESPULE) 13:00: , BID, [place] nebulizer 00 First dose Medi christa solution on [facility] Branch 0.5 mg 8/5/23 at 0800, Until Discontinu ed, Routine baclofen 2022-0 2022- No 10mg 10 mg, Univer s (LIORESAL) 10-06 Oral, TID, it y of tablet 10 13:00: 23:13 First dose [place] mg 00 :56 on Sat Medical 10/06/22 at Branch 0800, Until Discontinu ed, Routine levothyroxi Yes 150ug 150 mcg, U nivers ne 10-06 Oral, ity of (SYNTHROID) 11:00: QAM-0600, [place] tablet 150 00 First dose Med ical mcg on Sat Branch 10/06/22 at 0600, Until Discontinu ed, Routine baclofen 2022- No 10mg 10 mg, Univer s (LIORESAL) 10-06 Oral, ity of tablet 10 04:30: 04:06 ONCE, 1 [place] mg 00 :00 dose, On Medical 10/05/22 Branch at 2330, MARTHA melatonin 2022-0 Yes 6mg 6 mg, Univers (MELATIN) 10-06 Oral, QHS, ity of tablet 6 mg 04:15: First dose [place] 00 (after Medical last Branch modificati on) on Sat10/05/22 at 2315, Until Discontinu ed, Routine HYDROcodone 0 Yes 1{tbl} 1 tablet, Univers -acetaminop 10-06 Oral, ity of hen (NORCO) 03:33: Q6HPRN, [place] as 10-325 mg 26 Starting Medica l tablet 1 on Fri Branch tablet 10/05/22 at 2233, Until Discontinu ed, Routine, Pain (scale 4-6), Pain (scale 7-10) heparin 2022-0 Yes 5000U 5,000 Univers (porcine) 805 Units, ity of injection 03:00: Subcutaneo [place] 5,000 Units 00 us, Q8H, Medi christa First dose Branch on Sat10/05/22 at 2200, Until Discontinu ed, Routine hydrOXYzine 2022-0 2022- No 25mg 25 mg, Uni vers (ATARAX) 10-06- Oral, Q8H, ity of tablet 25 03:00: 23:13 First dose [place] mg 00 :56 on Sat Medical 10/05/22 at Branch 2200, Until Discontinu ed ipratropium 0 Yes .5mg 0.5 mg, Uni vers (ATROVENT) 10-06 Inhalation ity of 0.02 % 02:45: , Q4HPRN, [place] nebulizer 34 Starting Medica l solution on Sat Branch 0.5 mg 10/05/22 at 2145, Until Discontinu ed, Routine, Wheezing, Shortness of Breath cloNIDine 2022-0 Yes .2mg 0.2 mg, Unive rs (CATAPRES) 10-06 Oral, ity of tablet 0.2 02:45: TIDPRN, [place] mg 03 Starting Medical on Sat Branch 10/05/22 at 2145, Until Discontinu ed, Routine, Uncontroll ed Hypertensi on benzonatate 0 Yes 100mg 100 mg, Un renetta (TESSALON 10-06 Oral, ity of PERLES) 02:44: Q8HPRN, [place] capsule 100 58 Starting Medi christa mg on Sat Branch 10/05/22 at 2144, Until Discontinu ed, Routine, Cough albuterol 0 Yes 2.5mg 2.5 mg, Univ ers (PROVENTIL) 10-06 Inhalation it y of 2.5 mg /3 02:44: , Q6HPRN, [place] mL (0.083 32 Starting Medica l %) on Sat [place] nebulizer 10/05/22 at solution 2144, 2.5 mg Until Discontinu ed, Routine, Shortness of Breath, Wheezing furosemide 2022-2022- No 40mg 40 mg, IV U nivers (LASIX) 10-06 0805 Push, ity of injection 01:00: 17:35 Q12H, [place] 40 mg 00 :46 First dose Medical on Sat Branch 10/05/22 at 2000, Until Discontinu ed, Routine azithromyci 0 2022- No 500mg 500 mg, IV Univers n 10-05 0806 Piggyback, ity of (ZITHROMAX) 23:00: 21:14 Q24H [...]
Durat ion of therapy: 72 hours methylpredn 0 2022- No 125mg 125 mg, U nivers isolone sod 10-05 Slow IV ity of succ 22:00: 21:18 Push, [place] (SOLU-MEDRO 00 :00 ONCE, 1 Medic al L) dose, On Branch injection Sat10/05/22 125 mg at 1700, MARTHA acetaminoph Yes 650mg 650 mg, Un renetta en 10-05 Oral, ity of (TYLENOL) 21:48: Q6HPRN, [place] tablet 650 27 Starting Medic al mg on Sat Branch 10/05/22 at 1648, Until Discontinu ed, Routine, Pain (scale 1-3) oxymetazoli Yes 1{puff} Use 1 Puff Univers ne HCl 10-05 in each ity of (AFRIN 21:46: nostril [place] NASAL) 20 every Medical other day. [place] Patient takes afrin over the counter, takes every other day cefTRIAXone 2022- No 1000mg 1,000 mg, Univers (ROCEPHIN) 10-05 IV ity of 1,000 mg in 21:45: 22:58 [place], [place] NaCl 0.9% 00 :00 ONCE, 1 Medical [...] 40 mg 00 :00 dose, On Medical 10/05/22 Branch at 1445, MARTHA mirtazapine 0 Yes [id number] 7.5mg Take 1 Univers 7.5 mg 7-31 tablet by ity of tablet 00:00: mouth at [place] [address] bedtime. Medical Branch mirtazapine 2022-0 Yes [id number] 7.5mg Take 1 Univers 7.5 mg 7-31 tablet by ity of tablet 00:00: mouth at [place] [address] bedtime. Medical Branch mirtazapine 0 Yes [id number] 7.5mg Take 1 Univers 7.5 mg 7-31 tablet by ity of tablet 00:00: mouth at [place] [address] bedtime. Medical Branch mirtazapine 0 Yes [id number] 7.5mg Take 1 Univers 7.5 mg 7-31 tablet by ity of tablet 00:00: mouth at [place] [address] bedtime. Medical Branch mirtazapine 2022-0 Yes [id number] 7.5mg Take 1 Univers 7.5 mg 7-31 tablet by ity of tablet 00:00: mouth at [place] [address] bedtime. Medical Branch mirtazapine 2022-0 Yes [id number] 7.5mg Take 1 Univers 7.5 mg 7-31 tablet by ity of tablet 00:00: mouth at [place] 00 bedtime. Medical Branch mirtazapine 2022-0 Yes [id number] 7.5mg Take 1 Univers 7.5 mg 7-31 tablet by ity of tablet 00:00: mouth at [place] 00 bedtime. Medical Branch mirtazapine 2022-0 Yes [id number] 7.5mg Take 1 Univers 7.5 mg 7-31 tablet by ity of tablet 00:00: mouth at [place] 00 bedtime. Medical Branch mirtazapine 2022-0 Yes [id number] 7.5mg Take 1 Univers 7.5 mg 7-31 tablet by ity of tablet 00:00: mouth at [place] [address] bedtime. Medical Branch mirtazapine 2022-0 Yes [id number] 7.5mg Take 1 Univers 7.5 mg 7-31 tablet by ity of tablet 00:00: mouth at [place] [address] bedtime. Medical Branch mirtazapine 2022-0 Yes [id number] 7.5mg Take 1 Univers 7.5 mg 7-31 tablet by ity of tablet 00:00: mouth at [place] [address] bedtime. Medical Branch mirtazapine 2022-0 Yes [id number] 7.5mg Take 1 Univers 7.5 mg 7-31 tablet by ity of tablet 00:00: mouth at [place] [address] bedtime. Medical Branch mirtazapine 2022-0 Yes [id number] 7.5mg Take 1 Univers 7.5 mg 7-31 tablet by ity of tablet 00:00: mouth at [place] [address] bedtime. Medical Branch mirtazapine 2022-0 Yes [id number] 7.5mg Take 1 Univers 7.5 mg 7-31 tablet by ity of tablet 00:00: mouth at [place] [address] bedtime. Medical Branch mirtazapine 2022-0 Yes [id number] 7.5mg Take 1 Univers 7.5 mg 7-31 tablet by ity of tablet 00:00: mouth at [place] [address] bedtime. Medical Branch mirtazapine 2022-0 Yes [id number] 7.5mg Take 1 Univers 7.5 mg 7-31 tablet by ity of tablet 00:00: mouth at [place] [address] bedtime. Medical Branch mirtazapine 2022-0 Yes [id number] 7.5mg Take 1 Univers 7.5 mg 7-31 tablet by ity of tablet 00:00: mouth at [place] [address] bedtime. Medical Branch mirtazapine 2022-0 Yes [id number] 7.5mg Take 1 Univers 7.5 mg 7-31 tablet by ity of tablet 00:00: mouth at [place] [address] bedtime. Medical Branch mirtazapine 2022-0 Yes [id number] 7.5mg Take 1 Univers 7.5 mg 7-31 tablet by ity of tablet 00:00: mouth at [place] [address] bedtime. Medical Branch mirtazapine 2022-0 Yes [id number] 7.5mg Take 1 Univers 7.5 mg 7-31 tablet by ity of tablet 00:00: mouth at [place] [address] bedtime. Medical Branch mirtazapine 2022-0 Yes [id number] 7.5mg Take 1 Univers 7.5 mg 7-31 tablet by ity of tablet 00:00: mouth at [place] [address] bedtime. Medical Branch mirtazapine 2022-0 Yes [id number] 7.5mg Take 1 Univers 7.5 mg 7-31 tablet by ity of tablet 00:00: mouth at [place] [address] bedtime. Medical Branch mirtazapine 2022-0 Yes [id number] 7.5mg Take 1 Univers 7.5 mg 7-31 tablet by ity of tablet 00:00: mouth at [place] [address] bedtime. Medical Branch mirtazapine 2022-0 Yes [id number] 7.5mg Take 1 Univers 7.5 mg 7-31 tablet by ity of tablet 00:00: mouth at [place] [address] bedtime. Medical Branch mirtazapine 2022-0 Yes [id number] 7.5mg Take 1 Univers 7.5 mg 7-31 tablet by ity of tablet 00:00: mouth at [place] [address] bedtime. Medical Branch mirtazapine 2022-0 Yes [id number] 7.5mg Take 1 Univers 7.5 mg 7-31 tablet by ity of tablet 00:00: mouth at [place] [address] bedtime. Medical Branch mirtazapine 2022-0 Yes [id number] 7.5mg Take 1 Univers 7.5 mg 7-31 tablet by ity of tablet 00:00: mouth at [place] [address] bedtime. Medical Branch mirtazapine 2022-0 Yes [id number] 7.5mg Take 1 Univers 7.5 mg 7-31 tablet by ity of tablet 00:00: mouth at [place] [address] bedtime. Medical Branch mirtazapine 2022-0 Yes [id number] 7.5mg Take 1 Univers 7.5 mg 7-31 tablet by ity of tablet 00:00: mouth at [place] [address] bedtime. Medical Branch mirtazapine 2022-0 Yes [id number] 7.5mg Take 1 Univers 7.5 mg 7-31 tablet by ity of tablet 00:00: mouth at [place] [address] bedtime. Medical Branch mirtazapine 2022-0 Yes [id number] 7.5mg Take 1 Univers 7.5 mg 7-31 tablet by ity of tablet 00:00: mouth at [place] [address] bedtime. Medical Branch mirtazapine 2022-0 Yes [id number] 7.5mg Take 1 Univers 7.5 mg 7-31 tablet by ity of tablet 00:00: mouth at [place] [address] bedtime. Medical Branch mirtazapine 2022-0 Yes [id number] 7.5mg Take 1 Univers 7.5 mg 7-31 tablet by ity of tablet 00:00: mouth at [place] [address] bedtime. Medical Branch mirtazapine 2022-0 Yes [id number] 7.5mg Take 1 Univers 7.5 mg 7-31 tablet by ity of tablet 00:00: mouth at [place] [address] bedtime. Medical Branch mirtazapine 2022-0 Yes [id number] 7.5mg Take 1 Univers 7.5 mg 7-31 tablet by ity of tablet 00:00: mouth at [place] [address] bedtime. Medical Branch mirtazapine 2022-0 Yes [id number] 7.5mg Take 1 Univers 7.5 mg 7-31 tablet by ity of tablet 00:00: mouth at [place] [address] bedtime. Medical Branch mirtazapine 2022-0 Yes [id number] 7.5mg Take 1 Univers 7.5 mg 7-31 tablet by ity of tablet 00:00: mouth at [place] [address] bedtime. Medical Branch mirtazapine 2022-0 Yes [id number] 7.5mg Take 1 Univers 7.5 mg 7-31 tablet by ity of tablet 00:00: mouth at [place] [address] bedtime. Medical Branch mirtazapine 2022-0 Yes [id number] 7.5mg Take 1 Univers 7.5 mg 7-31 tablet by ity of tablet 00:00: mouth at [place] [address] bedtime. Medical Branch mirtazapine 2022-0 Yes [id number] 7.5mg Take 1 Univers 7.5 mg 7-31 tablet by ity of tablet 00:00: mouth at [place] [address] bedtime. Medical Branch mirtazapine 2022-0 Yes [id number] 7.5mg Take 1 Univers 7.5 mg 7-31 tablet by ity of tablet 00:00: mouth at [place] [address] bedtime. Medical Branch mirtazapine 2022-0 Yes [id number] 7.5mg Take 1 Univers 7.5 mg 7-31 tablet by ity of tablet 00:00: mouth at [place] [address] bedtime. Medical Branch mirtazapine 2022-0 Yes [id number] 7.5mg Take 1 Univers 7.5 mg 7-31 tablet by ity of tablet 00:00: mouth at [place] [address] bedtime. Medical Branch mirtazapine 2022-0 Yes [id number] 7.5mg Take 1 Univers 7.5 mg 7-31 tablet by ity of tablet 00:00: mouth at [place] [address] bedtime. Medical Branch mirtazapine 2022-0 Yes [id number] 7.5mg Take 1 Univers 7.5 mg 7-31 tablet by ity of tablet 00:00: mouth at [place] [address] bedtime. Medical Branch mirtazapine 2022-0 Yes [id number] 7.5mg Take 1 Univers 7.5 mg 7-31 tablet by ity of tablet 00:00: mouth at [place] [address] bedtime. Medical Branch mirtazapine 2022-0 Yes [id number] 7.5mg Take 1 Univers 7.5 mg 7-31 tablet by ity of tablet 00:00: mouth at [place] [address] bedtime. Medical Branch mirtazapine 2022-0 Yes [id number] 7.5mg Take 1 Univers 7.5 mg 7-31 tablet by ity of tablet 00:00: mouth at [place] [address] bedtime. Medical Branch mirtazapine 2022-0 Yes [id number] 7.5mg Take 1 Univers 7.5 mg 7-31 tablet by ity of tablet 00:00: mouth at [place] [address] bedtime. Medical Branch mirtazapine 2022-0 Yes [id number] 7.5mg Take 1 Univers 7.5 mg 7-31 tablet by ity of tablet 00:00: mouth at [place] [address] bedtime. Medical Branch mirtazapine 2022-0 Yes [id number] 7.5mg Take 1 Univers 7.5 mg 7-31 tablet by ity of tablet 00:00: mouth at [place] [address] bedtime. Medical Branch mirtazapine 2022-0 Yes [id number] 7.5mg Take 1 Univers 7.5 mg 7-31 tablet by ity of tablet 00:00: mouth at [place] [address] bedtime. Medical Branch mirtazapine 2022-0 Yes [id number] 7.5mg Take 1 Univers 7.5 mg 7-31 tablet by ity of tablet 00:00: mouth at [place] 00 bedtime. Medical Branch mirtazapine 0 Yes [id number] 7.5mg Take 1 Univers 7.5 mg 7-31 tablet by ity of tablet 00:00: mouth at [place] 00 bedtime. Medical Branch mirtazapine 2022-0 Yes [id number] 7.5mg Take 1 Univers 7.5 mg 7-31 tablet by ity of tablet 00:00: mouth at [place] 00 bedtime. Medical Branch mirtazapine 0 Yes [id number] 7.5mg Take 1 Univers 7.5 mg 7-31 tablet by ity of tablet 00:00: mouth at [place] 00 bedtime. Medical Branch mirtazapine Yes [id number] 7.5mg Take 1 Univers 7.5 mg 7-31 tablet by ity of tablet 00:00: mouth at [place] 00 bedtime. Medical Branch mirtazapine Yes [id number] 7.5mg Take 1 Univers 7.5 mg 7-31 tablet by ity of tablet 00:00: mouth at [place] 00 bedtime. Medical Branch mirtazapine Yes [id number] 7.5mg Take 1 Univers 7.5 mg 7-31 tablet by ity of tablet 00:00: mouth at [place] 00 bedtime. Medical Branch predniSONE Yes 40mg 40 mg, Unive rs (DELTASONE) 7-19 Oral, ity of tablet 40 14:00: DAILY, [place] mg 00 First dose Medical on Sat [place] 09/19/22 at 0900, Until Discontinu ed, Routine pravastatin Yes 40mg 40 mg, Univ ers (PRAVACHOL) 7-19 Oral, QHS, it y of tablet 40 02:00: First dose [place] mg 00 on Sat [facility] 09/18/22 at Branch 2100, Until Discontinu ed, Routine predniSONE 2022- No [id number] 40mg Take 2 Univers 20 mg 7-19 09-24 tablets by ity of tablet 00:00: 04:59 mouth in [place] 00 :00 the Medical [facility] Branch for 4 days. predniSONE 2022- No [id number] 40mg Take 2 Univers 20 mg 7-19 09-24 tablets by ity of tablet 00:00: 04:59 mouth in [place] 00 :00 the Medical morning Branch for 4 days. azithromyci 2022- No 250mg 250 mg, IV Univers n 09-18 Piggyback, ity of (ZITHROMAX) 23:30: 23:29 Q24H ABX, [place] 250 mg in 00 :00 4 doses, Medica l NaCl 0.9% First dose Bran ch (NS) 250 mL on Sat piggy09/18/22 at 1830, Last dose on Sat09/21/22 at 1830, Administer over 60 Minutes, 250 mL
Reas on for Anti-Infec tive: Empiric Therapy for Suspected Infection< br>Empiric Therapy Site: Respirator y
Durat ion of therapy: 7 days oxymetazoli 0 Yes 1{puff} Use 1 Puff [...] other day fluticasone 2022-0 Yes 2{spray 2 [place], Univers propionate 7-18 } Nasal, ity of 50 14:00: DAILY, [place] mcg/actuati 00 First dose Me dical on nasal on Sat [place] spray 2 09/18/22 at [place] 0900, Until Discontinu ed, Routine vitamin b 2022-0 Yes 1{tbl} 1 tablet, U nivers complex-vit 09-18 Oral, ity of junior 14:00: DAILY, [place] c-folic 00 First dose Medica l acid on Sat [place] (NEPHRO-VIT 09/18/22 at E) 0.8 mg 0900, tablet 1 Until tablet Discontinu ed, Routine ergocalcife 2022-0 Yes [id number] 50,000 Un renetta rol 18 Units, ity of (vitamin 14:00: Oral, [place] d2) 00 QWEEKLY, Medical (CALCIFEROL First dose Br anch ) capsule on Sat 50,000 09/18/22 at Units 0900, Until Discontinu ed, Routine budesonide 2022-0 Yes .5mg 0.5 mg, [facility] ers (PULMICORT 09-18 Inhalation ity of RESPULE) 13:00: , BID, [place] nebulizer 00 First dose Medi christa solution on Sat [place] 0.5 mg 09/18/22 at 0800, Until Discontinu ed, Routine tamsulosin 2022-0 Yes .4mg 0.4 mg, [facility] ers (FLOMAX) 09-18 Oral, BID, ity o f capsule 0.4 13:00: First dose [place] mg 00 on [facility] Medical 09/18/22 at Branch 0800, Until Discontinu ed, Routine acetaminoph 2022-0 Yes 650mg 650 mg, Un renetta en 09-18 Oral, ity of (TYLENOL) 12:39: Q8HPRN, [place] tablet 650 55 Starting Medic al mg on Sat [place] 09/18/22 at 0739, Until Discontinu ed, Routine, Pain (scale 4-6), Pain (scale 1-3) levothyroxi 2022-0 Yes 150ug 150 mcg, U nivers ne 18 Oral, ity of (SYNTHROID) 11:00: QAM-0600, [place] tablet 150 00 First dose Med ical mcg on [facility] 09/18/22 at 0600, Until Discontinu ed, Routine methylpredn 2023-0 2023- No 60mg 60 mg, Uni vers isolone sod 09-1818 Intravenou i ty of succ 11:00: 19:18 s, Q8H, 6 [place] (SOLU-MEDRO 00 :59 doses, Medica l L) First dose Branch injection on Tue 60 mg 09/18/22 at 0600, Last dose on Sat09/19/22 at 2200, 2 mL benzonatate 0 Yes 100mg 100 mg, Un renetta (TESSALON 09-18 Oral, ity of PERLES) 10:03: Q8HPRN, [place] capsule 100 10 Starting Medi christa mg on Sat Branch 09/18/22 at 0503, Until Discontinu ed, Routine, Cough heparin 2022-0 Yes 5000U 5,000 Univers (porcine) 09-18 Units, ity of injection 03:00: Subcutaneo [place] 5,000 Units 00 us, Q8H, Medi christa First dose Branch on 09/17/22 at 2200, Until Discontinu ed, Routine Sliding 0 Yes Subcutaneo Univ ers Scale 18 us, TID ity of Insulin - 02:00: MEALS+HS, [place] Lispro 00 First dose Medical (HumaLOG) on Sat Branch 09/17/22 at 2100, Until Discontinu ed, Routine ipratropium 0 Yes 3mL 3 mL, Unive rs -albuteroL 09-18 Inhalation ity of (DUONEB) 01:00: , Q4H, [place] 0.5 mg-3 00 First dose Medic al mg(2.5 mg on Sat base)/3 mL 09/17/22 at nebulizer 2000, solution 3 Until mL Discontinu ed, Routine azithromyci 2022-0 2022- No [id number] 500mg Take 1 Univers n 500 mg 09-18 tablet by ity o f tablet 00:00: 04:59 mouth in [place] 00 :00 the morning Branch for 2 days. azithromyci 2022-0 2022- No [id number] 500mg Take 1 Univers n 500 mg 09-18 tablet by ity o f tablet 00:00: 04:59 mouth in [place] 00 :00 the Branch for 2 days. azithromyci 2022- No 500mg 500 mg, IV Univers n 09-17 Piggyback, ity of (ZITHROMAX) 23:30: 03:15 ONCE, 1 [place] 500 mg in 00 :00 dose, On Medica l NaCl 0.9% Mon Branch (NS) 250 mL 09/17/22 at VIAL-MATE 1830, IV Administer piggyback over 60 Minutes, 250 mL
R clarissa for Anti-Infec tive: Empiric Therapy for Suspected Infection< br>Empiric Therapy Site: Respirator y
Durat ion of therapy: 7 days cefTRIAXone 2022- No 1000mg 1,000 mg, Univers (ROCEPHIN) 09-17 IV ity of 1,000 mg in 22:45: 22:44 Piggyback, [place] NaCl 0.9% 00 :00 Q24H ABX, Medic al (NS) 100 mL 5 doses, Bran ch MINI-BAG First dose on Sat09/17/22 at 1745, Last dose on Sat09/21/22 at 1745, Administer over 30 Minutes, 100 mL
Reas on for Anti-Infec tive: Empiric Therapy for Suspected Infection< br>Empiric Therapy Site: Respirator y
Durat ion of therapy: 7 days predniSONE No 40mg 40 mg, Univ ers (DELTASONE) 09-17 Oral, ity of tablet 40 22:45: 10:06 DAILY, 5 [place] mg 00 :56 doses, Medical First dose Branch on Sat09/17/22 at 1745, Last dose on Sat09/21/22 at 0900, Routine glucagon Yes 1mg 1 mg, Univers (GLUCAGEN 09-17 Intramuscu ity of DIAGNOSTIC 22:33: lar, PRN, [place] KIT) 40 Starting Medical injection 1 on Sat Branch mg 09/17/22 at 1733, Until Discontinu ed, MARTHA, Blood Glucose < or = 70 mg/dL and patient is NPO, unable to swallow or has mental changes. dextrose 50 Yes 25mL 25 mL, Univ ers % in water 09-17 Slow IV ity of (D50W) 22:33: Push, PRN, [place] injection 40 Starting Medica l 25 mL on [facility] Branch 09/17/22 at 1733, Until Discontinu ed, MARTHA, Blood Glucose < or = 70 mg/dL and patient is NPO, unable to swallow or has mental status changes. aspirin 2022- No 324mg 324 mg, Unive rs chewable 09-17 Oral, ity of tablet 324 22:00: 23:46 ONCE, 1 [place] mg 00 :00 dose, On Medical [facility] Branch 09/17/22 at 1700, Routine ipratropium Yes [id number] 1{spray Use 1 Univers 42 mcg 7-11 1 } [place] in ity of (0.06 %) 00:00: each [place] nasal spray 00 nostril in [facility] the [place] morning and 1 [place] in the evening. ipratropium 2022- No [id number] 1{spray Use 1 Univers 42 mcg 7-11 07-18 1 } [place] in ity of (0.06 %) 00:00: 00:00 each [place] nasal spray 00 :00 nostril in [facility] the [place] morning and 1 [place] in the evening. albuterol Yes [id number] 2.5mg Inhale 3 Univers 2.5 mg /3 6-19 mL every 6 ity of mL (0.083 00:00: (six) [place] %) 00 hours as Medical nebulizer needed for Bran ch solution Shortness of Breath or Wheezing. albuterol Yes [id number] 2.5mg Inhale 3 Univers 2.5 mg /3 6-19 mL every 6 ity of mL (0.083 00:00: (six) [place] %) 00 hours as Medical nebulizer needed for Bran ch solution Shortness of Breath or Wheezing. albuterol Yes [id number] 2.5mg Inhale 3 Univers 2.5 mg /3 6-19 mL every 6 ity of mL (0.083 00:00: (six) [place] %) 00 hours as Medical nebulizer needed for Bran ch solution Shortness of Breath or Wheezing. albuterol Yes [id number] 2.5mg Inhale 3 Univers 2.5 mg /3 6-19 mL every 6 ity of mL (0.083 00:00: (six) [place] %) 00 hours as Medical nebulizer needed for Bran ch solution Shortness of Breath or Wheezing. albuterol 2023-0 Yes [id number] 2.5mg Inhale 3 Univers 2.5 mg /3 6-19 mL every 6 ity of mL (0.083 00:00: (six) [place] %) 00 hours as Medical nebulizer needed for Bran ch solution Shortness of Breath or Wheezing. albuterol 2023-0 Yes [id number] 2.5mg Inhale 3 Univers 2.5 mg /3 6-19 mL every 6 ity of mL (0.083 00:00: (six) [place] %) 00 hours as Medical nebulizer needed for Bran ch solution Shortness of Breath or Wheezing. albuterol 3-0 Yes [id number] 2.5mg Inhale 3 Univers 2.5 mg /3 6-19 mL every 6 ity of mL (0.083 00:00: ([facility]) [place] %) 00 hours as Medical nebulizer needed for Bran ch solution Shortness of Breath or Wheezing. albuterol 3-0 Yes [id number] 2.5mg Inhale 3 Univers 2.5 mg /3 6-19 mL every 6 ity of mL (0.083 00:00: ([facility]) [place] %) 00 hours as Medical nebulizer needed for Bran ch solution Shortness of Breath or Wheezing. albuterol 2023-0 Yes [id number] 2.5mg Inhale 3 Univers 2.5 mg /3 6-19 mL every 6 ity of mL (0.083 00:00: (six) [place] %) 00 hours as Medical nebulizer needed for Bran ch solution Shortness of Breath or Wheezing. albuterol 2023-0 Yes [id number] 2.5mg Inhale 3 Univers 2.5 mg /3 6-19 mL every 6 ity of mL (0.083 00:00: (six) [place] %) 00 hours as Medical nebulizer needed for Bran ch solution Shortness of Breath or Wheezing. albuterol 2023-0 Yes [id number] 2.5mg Inhale 3 Univers 2.5 mg /3 6-19 mL every 6 ity of mL (0.083 00:00: (six) [place] %) 00 hours as Medical nebulizer needed for Bran ch solution Shortness of Breath or Wheezing. albuterol 2023-0 Yes [id number] 2.5mg Inhale 3 Univers 2.5 mg /3 6-19 mL every 6 ity of mL (0.083 00:00: (six) [place] %) 00 hours as Medical nebulizer needed for Bran ch solution Shortness of Breath or Wheezing. albuterol 2023-0 Yes [id number] 2.5mg Inhale 3 Univers 2.5 mg /3 6-19 mL every 6 ity of mL (0.083 00:00: (six) [place] %) 00 hours as Medical nebulizer needed for Bran ch solution Shortness of Breath or Wheezing. albuterol 2023-0 Yes [id number] 2.5mg Inhale 3 Univers 2.5 mg /3 6-19 mL every 6 ity of mL (0.083 00:00: (six) [place] %) 00 hours as Medical nebulizer needed for Bran ch solution Shortness of Breath or Wheezing. albuterol 2023-0 Yes [id number] 2.5mg Inhale 3 Univers 2.5 mg /3 6-19 mL every 6 ity of mL (0.083 00:00: (six) [place] %) 00 hours as Medical nebulizer needed for Bran ch solution Shortness of Breath or Wheezing. albuterol 2023-0 Yes [id number] 2.5mg Inhale 3 Univers 2.5 mg /3 6-19 mL every 6 ity of mL (0.083 00:00: (six) [place] %) 00 hours as Medical nebulizer needed for Bran ch solution Shortness of Breath or Wheezing. albuterol 2023-0 Yes [id number] 2.5mg Inhale 3 Univers 2.5 mg /3 6-19 mL every 6 ity of mL (0.083 00:00: (six) [place] %) 00 hours as Medical nebulizer needed for Bran ch solution Shortness of Breath or Wheezing. albuterol 2023-0 Yes [id number] 2.5mg Inhale 3 Univers 2.5 mg /3 6-19 mL every 6 ity of mL (0.083 00:00: (six) [place] %) 00 hours as Medical nebulizer needed for Bran ch solution Shortness of Breath or Wheezing. albuterol 3-0 Yes [id number] 2.5mg Inhale 3 Univers 2.5 mg /3 6-19 mL every 6 ity of mL (0.083 00:00: (six) [place] %) 00 hours as Medical nebulizer needed for Bran ch solution Shortness of Breath or Wheezing. albuterol 3-0 Yes [id number] 2.5mg Inhale 3 Univers 2.5 mg /3 6-19 mL every 6 ity of mL (0.083 00:00: (six) [place] %) 00 hours as Medical nebulizer needed for Bran ch solution Shortness of Breath or Wheezing. albuterol 2022-0 Yes [id number] 2.5mg Inhale 3 Univers 2.5 mg /3 6-19 mL every 6 ity of mL (0.083 00:00: (six) [place] %) 00 hours as Medical nebulizer needed for Bran ch solution Shortness of Breath or Wheezing. albuterol 2022-0 Yes [id number] 2.5mg Inhale 3 Univers 2.5 mg /3 6-19 mL every 6 ity of mL (0.083 00:00: (six) [place] %) 00 hours as Medical nebulizer needed for Bran ch solution Shortness of Breath or Wheezing. albuterol 2022-0 Yes [id number] 2.5mg Inhale 3 Univers 2.5 mg /3 6-19 mL every 6 ity of mL (0.083 00:00: (six) [place] %) 00 hours as Medical nebulizer needed for Bran ch solution Shortness of Breath or Wheezing. albuterol 3-0 Yes [id number] 2.5mg Inhale 3 Univers 2.5 mg /3 6-19 mL every 6 ity of mL (0.083 00:00: (six) [place] %) 00 hours as Medical nebulizer needed for Bran ch solution Shortness of Breath or Wheezing. albuterol 3-0 Yes [id number] 2.5mg Inhale 3 [facility] 2.5 mg /3 6-19 mL every 6 ity of mL (0.083 00:00: (six) [place] %) 00 hours as Medical nebulizer needed for Bran ch solution Shortness of Breath or Wheezing. albuterol 3-0 Yes [id number] 2.5mg Inhale 3 [facility] 2.5 mg /3 6-19 mL every 6 ity of mL (0.083 00:00: ([facility]) [place] %) 00 hours as Medical nebulizer needed for Bran ch solution Shortness of Breath or Wheezing. albuterol 3-0 Yes [id number] 2.5mg Inhale 3 [facility] 2.5 mg /3 6-19 mL every 6 ity of mL (0.083 00:00: ([facility]) [place] %) 00 hours as Medical nebulizer needed for Bran ch solution Shortness of Breath or Wheezing. albuterol 3-0 Yes [id number] 2.5mg Inhale 3 [facility] 2.5 mg /3 6-19 mL every 6 ity of mL (0.083 00:00: ([facility]) [place] %) 00 hours as Medical nebulizer needed for Bran ch solution Shortness of Breath or Wheezing. albuterol 2022-0 Yes [id number] 2.5mg Inhale 3 [facility] 2.5 mg /3 6-19 mL every 6 ity of mL (0.083 00:00: ([facility]) [place] %) 00 hours as Medical nebulizer needed for Bran ch solution Shortness of Breath or Wheezing. albuterol 2022-0 Yes [id number] 2.5mg Inhale 3 [facility] 2.5 mg /3 6-19 mL every 6 ity of mL (0.083 00:00: (six) [place] %) 00 hours as Medical nebulizer needed for Bran ch solution Shortness of Breath or Wheezing. albuterol 2022-0 Yes [id number] 2.5mg Inhale 3 [facility] 2.5 mg /3 6-19 mL every 6 ity of mL (0.083 00:00: (six) [place] %) 00 hours as Medical nebulizer needed for Bran ch solution Shortness of Breath or Wheezing. albuterol 3-0 Yes [id number] 2.5mg Inhale 3 [facility] 2.5 mg /3 6-19 mL every 6 ity of mL (0.083 00:00: (six) [place] %) 00 hours as Medical nebulizer needed for Bran ch solution Shortness of Breath or Wheezing. albuterol 3-0 Yes [id number] 2.5mg Inhale 3 [facility] 2.5 mg /3 6-19 mL every 6 ity of mL (0.083 00:00: (six) [place] %) 00 hours as Medical nebulizer needed for Bran ch solution Shortness of Breath or Wheezing. albuterol 2023-0 Yes [id number] 2.5mg Inhale 3 [facility] 2.5 mg /3 6-19 mL every 6 ity of mL (0.083 00:00: (six) [place] %) 00 hours as Medical nebulizer needed for Bran ch solution Shortness of Breath or Wheezing. albuterol 2023-0 Yes [id number] 2.5mg Inhale 3 [facility] 2.5 mg /3 6-19 mL every 6 ity of mL (0.083 00:00: (six) [place] %) 00 hours as Medical nebulizer needed for Bran ch solution Shortness of Breath or Wheezing. albuterol 3-0 Yes [id number] 2.5mg Inhale 3 [facility] 2.5 mg /3 6-19 mL every 6 ity of mL (0.083 00:00: ([facility]) [place] %) 00 hours as Medical nebulizer needed for Bran ch solution Shortness of Breath or Wheezing. albuterol 3-0 Yes [id number] 2.5mg Inhale 3 [facility] 2.5 mg /3 6-19 mL every 6 ity of mL (0.083 00:00: (six) [place] %) 00 hours as Medical nebulizer needed for Bran ch solution Shortness of Breath or Wheezing. albuterol 2023-0 Yes [id number] 2.5mg Inhale 3 [facility] 2.5 mg /3 6-19 mL every 6 ity of mL (0.083 00:00: (six) [place] %) 00 hours as Medical nebulizer needed for Bran ch solution Shortness of Breath or Wheezing. albuterol 2023-0 Yes [id number] 2.5mg Inhale 3 [facility] 2.5 mg /3 6-19 mL every 6 ity of mL (0.083 00:00: (six) [place] %) 00 hours as Medical nebulizer needed for Bran ch solution Shortness of Breath or Wheezing. albuterol 2023-0 Yes [id number] 2.5mg Inhale 3 [facility] 2.5 mg /3 6-19 mL every 6 ity of mL (0.083 00:00: (six) [place] %) 00 hours as Medical nebulizer needed for Bran ch solution Shortness of Breath or Wheezing. albuterol 2023-0 Yes [id number] 2.5mg Inhale 3 [facility] 2.5 mg /3 6-19 mL every 6 ity of mL (0.083 00:00: (six) [place] %) 00 hours as Medical nebulizer needed for Bran ch solution Shortness of Breath or Wheezing. albuterol 2023-0 Yes [id number] 2.5mg Inhale 3 [facility] 2.5 mg /3 6-19 mL every 6 ity of mL (0.083 00:00: (six) [place] %) 00 hours as Medical nebulizer needed for Bran ch solution Shortness of Breath or Wheezing. albuterol 2023-0 Yes [id number] 2.5mg Inhale 3 [facility] 2.5 mg /3 6-19 mL every 6 ity of mL (0.083 00:00: ([facility]) [place] %) 00 hours as Medical nebulizer needed for Bran ch solution Shortness of Breath or Wheezing. albuterol 2023-0 Yes [id number] 2.5mg Inhale 3 [facility] 2.5 mg /3 6-19 mL every 6 ity of mL (0.083 00:00: (six) [place] %) 00 hours as Medical nebulizer needed for Bran ch solution Shortness of Breath or Wheezing. albuterol 2023-0 Yes [id number] 2.5mg Inhale 3 [facility] 2.5 mg /3 6-19 mL every 6 ity of mL (0.083 00:00: (six) [place] %) 00 hours as Medical nebulizer needed for Bran ch solution Shortness of Breath or Wheezing. albuterol 2023-0 Yes [id number] 2.5mg Inhale 3 [facility] 2.5 mg /3 6-19 mL every 6 ity of mL (0.083 00:00: (six) [place] %) 00 hours as Medical nebulizer needed for Bran ch solution Shortness of Breath or Wheezing. albuterol 2023-0 Yes [id number] 2.5mg Inhale 3 [facility] 2.5 mg /3 6-19 mL every 6 ity of mL (0.083 00:00: (six) [place] %) 00 hours as Medical nebulizer needed for Bran ch solution Shortness of Breath or Wheezing. albuterol 3-0 Yes [id number] 2.5mg Inhale 3 [facility] 2.5 mg /3 6-19 mL every 6 ity of mL (0.083 00:00: (six) [place] %) 00 hours as Medical nebulizer needed for Bran ch solution Shortness of Breath or Wheezing. albuterol 3-0 Yes [id number] 2.5mg Inhale 3 [facility] 2.5 mg /3 6-19 mL every 6 ity of mL (0.083 00:00: (six) [place] %) 00 hours as Medical nebulizer needed for Bran ch solution Shortness of Breath or Wheezing. albuterol 3-0 Yes [id number] 2.5mg Inhale 3 [facility] 2.5 mg /3 6-19 mL every 6 ity of mL (0.083 00:00: (six) [place] %) 00 hours as Medical nebulizer needed for Bran ch solution Shortness of Breath or Wheezing. albuterol 2022-0 Yes [id number] 2.5mg Inhale 3 [facility] 2.5 mg /3 6-19 mL every 6 ity of mL (0.083 00:00: (six) [place] %) 00 hours as Medical nebulizer needed for Bran ch solution Shortness of Breath or Wheezing. albuterol 2022-0 Yes [id number] 2.5mg Inhale 3 [facility] 2.5 mg /3 6-19 mL every 6 ity of mL (0.083 00:00: (six) [place] %) 00 hours as Medical nebulizer needed for Bran ch solution Shortness of Breath or Wheezing. albuterol 3-0 Yes [id number] 2.5mg Inhale 3 [facility] 2.5 mg /3 6-19 mL every 6 ity of mL (0.083 00:00: (six) [place] %) 00 hours as Medical nebulizer needed for Bran ch solution Shortness of Breath or Wheezing. albuterol 3-0 Yes [id number] 2.5mg Inhale 3 [facility] 2.5 mg /3 6-19 mL every 6 ity of mL (0.083 00:00: (six) [place] %) 00 hours as Medical nebulizer needed for Bran ch solution Shortness of Breath or Wheezing. albuterol 3-0 Yes [id number] 2.5mg Inhale 3 [facility] 2.5 mg /3 6-19 mL every 6 ity of mL (0.083 00:00: ([facility]) [place] %) 00 hours as Medical nebulizer needed for Bran ch solution Shortness of Breath or Wheezing. albuterol 3-0 Yes [id number] 2.5mg Inhale 3 [facility] 2.5 mg /3 6-19 mL every 6 ity of mL (0.083 00:00: ([facility]) [place] %) 00 hours as Medical nebulizer needed for Bran ch solution Shortness of Breath or Wheezing. albuterol 3-0 Yes [id number] 2.5mg Inhale 3 [facility] 2.5 mg /3 6-19 mL every 6 ity of mL (0.083 00:00: ([facility]) [place] %) 00 hours as Medical nebulizer needed for Bran ch solution Shortness of Breath or Wheezing. albuterol 2022-0 Yes [id number] 2.5mg Inhale 3 [facility] 2.5 mg /3 6-19 mL every 6 ity of mL (0.083 00:00: ([facility]) [place] %) 00 hours as Medical nebulizer needed for Bran ch solution Shortness of Breath or Wheezing. albuterol 2022-0 Yes [id number] 2.5mg Inhale 3 [facility] 2.5 mg /3 6-19 mL every 6 ity of mL (0.083 00:00: (six) [place] %) 00 hours as Medical nebulizer needed for Bran ch solution Shortness of Breath or Wheezing. albuterol 3-0 Yes [id number] 2.5mg Inhale 3 [facility] 2.5 mg /3 6-19 mL every 6 ity of mL (0.083 00:00: (six) [place] %) 00 hours as Medical nebulizer needed for Bran ch solution Shortness of Breath or Wheezing. albuterol 3-0 Yes [id number] 2.5mg Inhale 3 [facility] 2.5 mg /3 6-19 mL every 6 ity of mL (0.083 00:00: (six) [place] %) 00 hours as Medical nebulizer needed for Bran ch solution Shortness of Breath or Wheezing. albuterol 3-0 Yes [id number] 2.5mg Inhale 3 [facility] 2.5 mg /3 6-19 mL every 6 ity of mL (0.083 00:00: (six) [place] %) 00 hours as Medical nebulizer needed for Bran ch solution Shortness of Breath or Wheezing. albuterol 3-0 Yes [id number] 2.5mg Inhale 3 [facility] 2.5 mg /3 6-19 mL every 6 ity of mL (0.083 00:00: (six) [place] %) 00 hours as Medical nebulizer needed for Bran ch solution Shortness of Breath or Wheezing. albuterol 3-0 Yes [id number] 2.5mg Inhale 3 [facility] 2.5 mg /3 6-19 mL every 6 ity of mL (0.083 00:00: (six) [place] %) 00 hours as Medical nebulizer needed for Bran ch solution Shortness of Breath or Wheezing. albuterol 2022-0 Yes [id number] 2.5mg Inhale 3 [facility] 2.5 mg /3 6-19 mL every 6 ity of mL (0.083 00:00: (six) [place] %) 00 hours as Medical nebulizer needed for Bran ch solution Shortness of Breath or Wheezing. albuterol 2022-0 Yes [id number] 2.5mg Inhale 3 [facility] 2.5 mg /3 6-19 mL every 6 ity of mL (0.083 00:00: (six) [place] %) 00 hours as Medical nebulizer needed for Bran ch solution Shortness of Breath or Wheezing. albuterol 2022-0 3- No [id number] 2.5mg Inhale 3 [facility] 2.5 mg /3 6-19 06-19 mL every 6 ity of mL (0.083 00:00: 00:00 (six) [place] %) 00 :00 hours as Medical nebulizer needed for Bran ch solution Shortness of Breath or Wheezing. BACLOFEN 10 2022-0 Yes [id number] TAKE ONE [facility] mg tablet 4-19 TABLET BY ity o f 00:00: MOUTH THREE Medical TIMES A Branch DAY NEEDED FOR PAIN BACLOFEN 10 2022-0 Yes [id number] TAKE ONE [facility] mg tablet 4-19 TABLET BY ity o f 00:00: MOUTH THREE Medical TIMES A Branch DAY NEEDED FOR PAIN BACLOFEN 10 2022-0 Yes [id number] TAKE ONE [facility] mg tablet 4-19 TABLET BY ity o f 00:00: MOUTH [place] 00 THREE Medical TIMES A Branch DAY NEEDED FOR PAIN BACLOFEN 10 3-0 Yes [id number] TAKE ONE [facility] mg tablet 4-19 TABLET BY ity o f 00:00: MOUTH [place] 00 THREE Medical TIMES A Branch DAY NEEDED FOR PAIN BACLOFEN 10 3-0 Yes [id number] TAKE ONE [facility] mg tablet 4-19 TABLET BY ity o f 00:00: MOUTH [place] 00 THREE Medical TIMES A Branch DAY NEEDED FOR PAIN BACLOFEN 10 2022-0 Yes [id number] TAKE ONE [facility] mg tablet 4-19 TABLET BY ity o f 00:00: MOUTH [place] 00 THREE Medical TIMES A Branch DAY NEEDED FOR PAIN BACLOFEN 10 2022-0 Yes [id number] TAKE ONE [facility] mg tablet 4-19 TABLET BY ity o f 00:00: MOUTH [place] 00 THREE Medical TIMES A Branch DAY NEEDED FOR PAIN BACLOFEN 10 3-0 Yes [id number] TAKE ONE [facility] mg tablet 4-19 TABLET BY ity o f 00:00: MOUTH [place] 00 THREE Medical TIMES A Branch DAY NEEDED FOR PAIN BACLOFEN 10 2022-0 Yes [id number] TAKE ONE [facility] mg tablet 4-19 TABLET BY ity o f 00:00: MOUTH [place] 00 THREE Medical TIMES A Branch DAY NEEDED FOR PAIN BACLOFEN 10 2022-0 Yes [id number] TAKE ONE [facility] mg tablet 4-19 TABLET BY ity o f 00:00: MOUTH [place] 00 THREE Medical TIMES A Branch DAY NEEDED FOR PAIN BACLOFEN 10 3-0 Yes [id number] TAKE ONE [facility] mg tablet 4-19 TABLET BY ity o f 00:00: MOUTH [place] 00 THREE Medical TIMES A Branch DAY NEEDED FOR PAIN BACLOFEN 10 3-0 Yes [id number] TAKE ONE [facility] mg tablet 4-19 TABLET BY ity o f 00:00: MOUTH [place] 00 THREE Medical TIMES A Branch DAY NEEDED FOR PAIN BACLOFEN 10 3-0 Yes [id number] TAKE ONE [facility] mg tablet 4-19 TABLET BY ity o f 00:00: MOUTH [place] 00 THREE Medical TIMES A Branch DAY NEEDED FOR PAIN BACLOFEN 10 2023-0 Yes [id number] TAKE ONE [facility] mg tablet 4-19 TABLET BY ity o f 00:00: MOUTH [place] 00 THREE Medical TIMES A Branch DAY NEEDED FOR PAIN BACLOFEN 10 3-0 Yes [id number] TAKE ONE [facility] mg tablet 4-19 TABLET BY ity o f 00:00: MOUTH [place] 00 THREE Medical TIMES A Branch DAY NEEDED FOR PAIN BACLOFEN 10 2022-0 Yes [id number] TAKE ONE [facility] mg tablet 4-19 TABLET BY ity o f 00:00: MOUTH [place] 00 THREE Medical TIMES A Branch DAY NEEDED FOR PAIN BACLOFEN 10 2022-0 Yes [id number] TAKE ONE [facility] mg tablet 4-19 TABLET BY ity o f 00:00: MOUTH [place] 00 THREE Medical TIMES A Branch DAY NEEDED FOR PAIN BACLOFEN 10 2022-0 2023- No [id number] TAKE ONE [facility] mg tablet 4-19 08-08 TABLET BY ity of 00:00: 00:00 MOUTH [place] 00 :00 THREE Medical TIMES A Branch DAY NEEDED FOR PAIN ERGOCALCIFE 2023-0 Yes [id number] TAKE 1 [facility] ROL, 4-03 CAPSULE BY ity of VITAMIN D2, 00:00: MOUTH ONCE [place] 1,250 mcg 00 A WEEK Medical (50,000 Branch unit) capsule ERGOCALCIFE 2023-0 Yes [id number] TAKE 1 [facility] ROL, 4-03 CAPSULE BY ity of VITAMIN D2, 00:00: MOUTH ONCE [place] 1,250 mcg 00 A WEEK Medical (50,000 Branch unit) capsule ERGOCALCIFE 2023-0 Yes [id number] TAKE 1 [facility] ROL, 4-03 CAPSULE BY ity of VITAMIN D2, 00:00: MOUTH ONCE [place] 1,250 mcg 00 A WEEK Medical (50,000 Branch unit) capsule ERGOCALCIFE 2023-0 Yes [id number] TAKE 1 [facility] ROL, 4-03 CAPSULE BY ity of VITAMIN D2, 00:00: MOUTH ONCE [place] 1,250 mcg 00 A WEEK Medical (50,000 Branch unit) capsule ERGOCALCIFE 2023-0 Yes [id number] TAKE 1 [facility] ROL, 4-03 CAPSULE BY ity of VITAMIN D2, 00:00: MOUTH ONCE [place] 1,250 mcg 00 A WEEK Medical (50,000 Branch unit) capsule ERGOCALCIFE 2023-0 Yes [id number] TAKE 1 [facility] ROL, 4-03 CAPSULE BY ity of VITAMIN D2, 00:00: MOUTH ONCE [place] 1,250 mcg 00 A WEEK Medical (50,000 Branch unit) capsule ERGOCALCIFE 2023-0 Yes [id number] TAKE 1 [facility] ROL, 4-03 CAPSULE BY ity of VITAMIN D2, 00:00: MOUTH ONCE [place] 1,250 mcg 00 A WEEK Medical (50,000 Branch unit) capsule ERGOCALCIFE 2023-0 Yes [id number] TAKE 1 [facility] ROL, 4-03 CAPSULE BY ity of VITAMIN D2, 00:00: MOUTH ONCE [place] 1,250 mcg 00 A WEEK Medical (50,000 Branch unit) capsule ERGOCALCIFE 2023-0 Yes [id number] TAKE 1 [facility] ROL, 4-03 CAPSULE BY ity of VITAMIN D2, 00:00: MOUTH ONCE [place] 1,250 mcg 00 A WEEK Medical (50,000 Branch unit) capsule ERGOCALCIFE 2023-0 Yes [id number] TAKE 1 [facility] ROL, 4-03 CAPSULE BY ity of VITAMIN D2, 00:00: MOUTH ONCE [place] 1,250 mcg 00 A WEEK Medical (50,000 Branch unit) capsule ERGOCALCIFE 2023-0 Yes [id number] TAKE 1 [facility] ROL, 4-03 CAPSULE BY ity of VITAMIN D2, 00:00: MOUTH ONCE [place] 1,250 mcg 00 A WEEK Medical (50,000 Branch unit) capsule ERGOCALCIFE 2023-0 Yes [id number] TAKE 1 [facility] ROL, 4-03 CAPSULE BY ity of VITAMIN D2, 00:00: MOUTH ONCE [place] 1,250 mcg 00 A WEEK Medical (50,000 Branch unit) capsule ERGOCALCIFE 2023-0 Yes [id number] TAKE 1 [facility] ROL, 4-03 CAPSULE BY ity of VITAMIN D2, 00:00: MOUTH ONCE [place] 1,250 mcg 00 A WEEK Medical (50,000 Branch unit) capsule ERGOCALCIFE 2023-0 Yes [id number] TAKE 1 [facility] ROL, 4-03 CAPSULE BY ity of VITAMIN D2, 00:00: MOUTH ONCE [place] 1,250 mcg 00 A WEEK Medical (50,000 Branch unit) capsule ERGOCALCIFE 2023-0 Yes [id number] TAKE 1 [facility] ROL, 4-03 CAPSULE BY ity of VITAMIN D2, 00:00: MOUTH ONCE [place] 1,250 mcg 00 A WEEK Medical (50,000 Branch unit) capsule ERGOCALCIFE 2023-0 Yes [id number] TAKE 1 [facility] ROL, 4-03 CAPSULE BY ity of VITAMIN D2, 00:00: MOUTH ONCE [place] 1,250 mcg 00 A WEEK Medical (50,000 Branch unit) capsule ERGOCALCIFE 2023-0 Yes [id number] TAKE 1 [facility] ROL, 4-03 CAPSULE BY ity of VITAMIN D2, 00:00: MOUTH ONCE [place] 1,250 mcg 00 A WEEK Medical (50,000 Branch unit) capsule ERGOCALCIFE 2023-0 Yes [id number] TAKE 1 [facility] ROL, 4-03 CAPSULE BY ity of VITAMIN D2, 00:00: MOUTH ONCE [place] 1,250 mcg 00 A WEEK Medical (50,000 Branch unit) capsule ERGOCALCIFE 2023-0 Yes [id number] TAKE 1 [facility] ROL, 4-03 CAPSULE BY ity of VITAMIN D2, 00:00: MOUTH ONCE [place] 1,250 mcg 00 A WEEK Medical (50,000 Branch unit) capsule ERGOCALCIFE 2023-0 Yes [id number] TAKE 1 [facility] ROL, 4-03 CAPSULE BY ity of VITAMIN D2, 00:00: MOUTH ONCE [place] 1,250 mcg 00 A WEEK Medical (50,000 Branch unit) capsule ERGOCALCIFE 2023-0 Yes [id number] TAKE 1 [facility] ROL, 4-03 CAPSULE BY ity of VITAMIN D2, 00:00: MOUTH ONCE [place] 1,250 mcg 00 A WEEK Medical (50,000 Branch unit) capsule ERGOCALCIFE 2023-0 Yes [id number] TAKE 1 [facility] ROL, 4-03 CAPSULE BY ity of VITAMIN D2, 00:00: MOUTH ONCE [place] 1,250 mcg 00 A WEEK Medical (50,000 Branch unit) capsule ERGOCALCIFE 2023-0 Yes [id number] TAKE 1 [facility] ROL, 4-03 CAPSULE BY ity of VITAMIN D2, 00:00: MOUTH ONCE [place] 1,250 mcg 00 A WEEK Medical (50,000 Branch unit) capsule ERGOCALCIFE 2023-0 Yes [id number] TAKE 1 [facility] ROL, 4-03 CAPSULE BY ity of VITAMIN D2, 00:00: MOUTH ONCE [place] 1,250 mcg 00 A WEEK Medical (50,000 Branch unit) capsule ERGOCALCIFE 2023-0 Yes [id number] TAKE 1 [facility] ROL, 4-03 CAPSULE BY ity of VITAMIN D2, 00:00: MOUTH ONCE [place] 1,250 mcg 00 A WEEK Medical (50,000 Branch unit) capsule ERGOCALCIFE 2023-0 Yes [id number] TAKE 1 [facility] ROL, 4-03 CAPSULE BY ity of VITAMIN D2, 00:00: MOUTH ONCE [place] 1,250 mcg 00 A WEEK Medical (50,000 Branch unit) capsule ERGOCALCIFE 2023-0 Yes [id number] TAKE 1 [facility] ROL, 4-03 CAPSULE BY ity of VITAMIN D2, 00:00: MOUTH ONCE [place] 1,250 mcg 00 A WEEK Medical (50,000 Branch unit) capsule ERGOCALCIFE 2023-0 Yes [id number] TAKE 1 [facility] ROL, 4-03 CAPSULE BY ity of VITAMIN D2, 00:00: MOUTH ONCE [place] 1,250 mcg 00 A WEEK Medical (50,000 Branch unit) capsule ERGOCALCIFE 2023-0 Yes [id number] TAKE 1 [facility] ROL, 4-03 CAPSULE BY ity of VITAMIN D2, 00:00: MOUTH ONCE [place] 1,250 mcg 00 A WEEK Medical (50,000 Branch unit) capsule ERGOCALCIFE 2023-0 Yes [id number] TAKE 1 [facility] ROL, 4-03 CAPSULE BY ity of VITAMIN D2, 00:00: MOUTH ONCE [place] 1,250 mcg 00 A WEEK Medical (50,000 Branch unit) capsule ERGOCALCIFE 2023-0 Yes [id number] TAKE 1 [facility] ROL, 4-03 CAPSULE BY ity of VITAMIN D2, 00:00: MOUTH ONCE [place] 1,250 mcg 00 A WEEK Medical (50,000 Branch unit) capsule ERGOCALCIFE 2023-0 Yes [id number] TAKE 1 [facility] ROL, 4-03 CAPSULE BY ity of VITAMIN D2, 00:00: MOUTH ONCE [place] 1,250 mcg 00 A WEEK Medical (50,000 Branch unit) capsule ERGOCALCIFE 2023-0 Yes [id number] TAKE 1 [facility] ROL, 4-03 CAPSULE BY ity of VITAMIN D2, 00:00: MOUTH ONCE [place] 1,250 mcg 00 A WEEK Medical (50,000 Branch unit) capsule ERGOCALCIFE 2023-0 Yes [id number] TAKE 1 [facility] ROL, 4-03 CAPSULE BY ity of VITAMIN D2, 00:00: MOUTH ONCE [place] 1,250 mcg 00 A WEEK Medical (50,000 Branch unit) capsule ERGOCALCIFE 2023-0 Yes [id number] TAKE 1 [facility] ROL, 4-03 CAPSULE BY ity of VITAMIN D2, 00:00: MOUTH ONCE [place] 1,250 mcg 00 A WEEK Medical (50,000 Branch unit) capsule ERGOCALCIFE 2023-0 Yes [id number] TAKE 1 [facility] ROL, 4-03 CAPSULE BY ity of VITAMIN D2, 00:00: MOUTH ONCE [place] 1,250 mcg 00 A WEEK Medical (50,000 Branch unit) capsule ERGOCALCIFE 2023-0 Yes [id number] TAKE 1 [facility] ROL, 4-03 CAPSULE BY ity of VITAMIN D2, 00:00: MOUTH ONCE [place] 1,250 mcg 00 A WEEK Medical (50,000 Branch unit) capsule ERGOCALCIFE 2023-0 Yes [id number] TAKE 1 [facility] ROL, 4-03 CAPSULE BY ity of VITAMIN D2, 00:00: MOUTH ONCE [place] 1,250 mcg 00 A WEEK Medical (50,000 Branch unit) capsule ERGOCALCIFE 2023-0 Yes [id number] TAKE 1 [facility] ROL, 4-03 CAPSULE BY ity of VITAMIN D2, 00:00: MOUTH ONCE [place] 1,250 mcg 00 A WEEK Medical (50,000 Branch unit) capsule ERGOCALCIFE 2023-0 Yes [id number] TAKE 1 [facility] ROL, 4-03 CAPSULE BY ity of VITAMIN D2, 00:00: MOUTH ONCE [place] 1,250 mcg 00 A WEEK Medical (50,000 Branch unit) capsule ERGOCALCIFE 2023-0 Yes [id number] TAKE 1 [facility] ROL, 4-03 CAPSULE BY ity of VITAMIN D2, 00:00: MOUTH ONCE [place] 1,250 mcg 00 A WEEK Medical (50,000 Branch unit) capsule ERGOCALCIFE 2023-0 Yes [id number] TAKE 1 [facility] ROL, 4-03 CAPSULE BY ity of VITAMIN D2, 00:00: MOUTH ONCE [place] 1,250 mcg 00 A WEEK Medical (50,000 Branch unit) capsule ERGOCALCIFE 2023-0 Yes [id number] TAKE 1 [facility] ROL, 4-03 CAPSULE BY ity of VITAMIN D2, 00:00: MOUTH ONCE [place] 1,250 mcg 00 A WEEK Medical (50,000 Branch unit) capsule ERGOCALCIFE 2023-0 Yes [id number] TAKE 1 [facility] ROL, 4-03 CAPSULE BY ity of VITAMIN D2, 00:00: MOUTH ONCE [place] 1,250 mcg 00 A WEEK Medical (50,000 Branch unit) capsule ERGOCALCIFE 2023-0 Yes [id number] TAKE 1 [facility] ROL, 4-03 CAPSULE BY ity of VITAMIN D2, 00:00: MOUTH ONCE [place] 1,250 mcg 00 A WEEK Medical (50,000 Branch unit) capsule ERGOCALCIFE 2023-0 Yes [id number] TAKE 1 [facility] ROL, 4-03 CAPSULE BY ity of VITAMIN D2, 00:00: MOUTH ONCE [place] 1,250 mcg 00 A WEEK Medical (50,000 Branch unit) capsule ERGOCALCIFE 2023-0 Yes [id number] TAKE 1 [facility] ROL, 4-03 CAPSULE BY ity of VITAMIN D2, 00:00: MOUTH ONCE [place] 1,250 mcg 00 A WEEK Medical (50,000 Branch unit) capsule ERGOCALCIFE 2023-0 Yes [id number] TAKE 1 [facility] ROL, 4-03 CAPSULE BY ity of VITAMIN D2, 00:00: MOUTH ONCE [place] 1,250 mcg 00 A WEEK Medical (50,000 Branch unit) capsule ERGOCALCIFE 2023-0 Yes [id number] TAKE 1 [facility] ROL, 4-03 CAPSULE BY ity of VITAMIN D2, 00:00: MOUTH ONCE [place] 1,250 mcg 00 A WEEK Medical (50,000 Branch unit) capsule ERGOCALCIFE 2023-0 Yes [id number] TAKE 1 [facility] ROL, 4-03 CAPSULE BY ity of VITAMIN D2, 00:00: MOUTH ONCE [place] 1,250 mcg 00 A WEEK Medical (50,000 Branch unit) capsule ERGOCALCIFE 2023-0 Yes [id number] TAKE 1 [facility] ROL, 4-03 CAPSULE BY ity of VITAMIN D2, 00:00: MOUTH ONCE [place] 1,250 mcg 00 A WEEK Medical (50,000 Branch unit) capsule ERGOCALCIFE 2023-0 Yes [id number] TAKE 1 [facility] ROL, 4-03 CAPSULE BY ity of VITAMIN D2, 00:00: MOUTH ONCE [place] 1,250 mcg 00 A WEEK Medical (50,000 Branch unit) capsule ERGOCALCIFE 2023-0 Yes [id number] TAKE 1 [facility] ROL, 4-03 CAPSULE BY ity of VITAMIN D2, 00:00: MOUTH ONCE [place] 1,250 mcg 00 A WEEK Medical (50,000 Branch unit) capsule ERGOCALCIFE 2023-0 Yes [id number] TAKE 1 [facility] ROL, 4-03 CAPSULE BY ity of VITAMIN D2, 00:00: MOUTH ONCE [place] 1,250 mcg 00 A WEEK Medical (50,000 Branch unit) capsule ERGOCALCIFE 2023-0 Yes [id number] TAKE 1 [facility] ROL, 4-03 CAPSULE BY ity of VITAMIN D2, 00:00: MOUTH ONCE [place] 1,250 mcg 00 A WEEK Medical (50,000 Branch unit) capsule ERGOCALCIFE 2023-0 Yes [id number] TAKE 1 [facility] ROL, 4-03 CAPSULE BY ity of VITAMIN D2, 00:00: MOUTH ONCE [place] 1,250 mcg 00 A WEEK Medical (50,000 Branch unit) capsule ERGOCALCIFE 2023-0 Yes [id number] TAKE 1 [facility] ROL, 4-03 CAPSULE BY ity of VITAMIN D2, 00:00: MOUTH ONCE [place] 1,250 mcg 00 A WEEK Medical (50,000 Branch unit) capsule ERGOCALCIFE 2023-0 Yes [id number] TAKE 1 [facility] ROL, 4-03 CAPSULE BY ity of VITAMIN D2, 00:00: MOUTH ONCE [place] 1,250 mcg 00 A WEEK Medical (50,000 Branch unit) capsule ERGOCALCIFE 2023-0 Yes [id number] TAKE 1 [facility] ROL, 4-03 CAPSULE BY ity of VITAMIN D2, 00:00: MOUTH ONCE [place] 1,250 mcg 00 A WEEK Medical (50,000 Branch unit) capsule ERGOCALCIFE 2023-0 Yes [id number] TAKE 1 [facility] ROL, 4-03 CAPSULE BY ity of VITAMIN D2, 00:00: MOUTH ONCE [place] 1,250 mcg 00 A WEEK Medical (50,000 Branch unit) capsule ERGOCALCIFE 2023-0 Yes [id number] TAKE 1 [facility] ROL, 4-03 CAPSULE BY ity of VITAMIN D2, 00:00: MOUTH ONCE [place] 1,250 mcg 00 A WEEK Medical (50,000 Branch unit) capsule ERGOCALCIFE 2023-0 Yes [id number] TAKE 1 [facility] ROL, 4-03 CAPSULE BY ity of VITAMIN D2, 00:00: MOUTH ONCE [place] 1,250 mcg 00 A WEEK Medical (50,000 Branch unit) capsule ERGOCALCIFE 2023-0 Yes [id number] TAKE 1 [facility] ROL, 4-03 CAPSULE BY ity of VITAMIN D2, 00:00: MOUTH ONCE [place] 1,250 mcg 00 A WEEK Medical (50,000 Branch unit) capsule ERGOCALCIFE 2023-0 Yes [id number] TAKE 1 [facility] ROL, 4-03 CAPSULE BY ity of VITAMIN D2, 00:00: MOUTH ONCE [place] 1,250 mcg 00 A WEEK Medical (50,000 Branch unit) capsule ERGOCALCIFE 2023-0 Yes [id number] TAKE 1 [facility] ROL, 4-03 CAPSULE BY ity of VITAMIN D2, 00:00: MOUTH ONCE [place] 1,250 mcg 00 A WEEK Medical (50,000 Branch unit) capsule ERGOCALCIFE 2023-0 Yes [id number] TAKE 1 [facility] ROL, 4-03 CAPSULE BY ity of VITAMIN D2, 00:00: MOUTH ONCE [place] 1,250 mcg 00 A WEEK Medical (50,000 Branch unit) capsule ERGOCALCIFE 2023-0 Yes [id number] TAKE 1 [facility] ROL, 4-03 CAPSULE BY ity of VITAMIN D2, 00:00: MOUTH ONCE [place] 1,250 mcg 00 A WEEK Medical (50,000 Branch unit) capsule ERGOCALCIFE 2023-0 Yes [id number] TAKE 1 [facility] ROL, 4-03 CAPSULE BY ity of VITAMIN D2, 00:00: MOUTH ONCE [place] 1,250 mcg 00 A WEEK Medical (50,000 Branch unit) capsule predniSONE 2023-0 Yes [id number] 5mg Take 1 [facility] 5 mg tablet 2-09 tablet by ity of 00:00: mouth in [place] 00 the Medical morning. Branch predniSONE 2023-0 Yes [id number] 5mg Take 1 [facility] 5 mg tablet 2-09 tablet by ity of 00:00: mouth in [place] 00 the Medical morning. Branch predniSONE 2023-0 Yes [id number] 5mg Take 1 [facility] 5 mg tablet 2-09 tablet by ity of 00:00: mouth in [place] 00 the Medical morning. Branch predniSONE 2023-0 Yes [id number] 5mg Take 1 [facility] 5 mg tablet 2-09 tablet by ity of 00:00: mouth in [place] 00 the Medical morning. Branch predniSONE 2023-0 Yes [id number] 5mg Take 1 [facility] 5 mg tablet 2-09 tablet by ity of 00:00: mouth in [place] 00 the Medical morning. Branch predniSONE 2023-0 Yes [id number] 5mg Take 1 [facility] 5 mg tablet 2-09 tablet by [facility]y of 00:00: mouth in [place] 00 the Medical morning. Branch predniSONE 2023-0 Yes [id number] 5mg Take 1 [facility] 5 mg tablet 2-09 tablet by ity of 00:00: mouth in [place] 00 the Medical morning. Branch predniSONE 2023-0 Yes [id number] 5mg Take 1 [facility] 5 mg tablet 2-09 tablet by ity of 00:00: mouth in [place] 00 the Medical morning. Branch predniSONE 2023-0 Yes [id number] 5mg Take 1 [facility] 5 mg tablet 2-09 tablet by ity of 00:00: mouth in [place] 00 the Medical morning. Branch predniSONE 2023-0 Yes [id number] 5mg Take 1 [facility] 5 mg tablet 2-09 tablet by ity of 00:00: mouth in [place] 00 the Medical morning. Branch predniSONE 2023-0 Yes [id number] 5mg Take 1 [facility] 5 mg tablet 2-09 tablet by ity of 00:00: mouth in [place] 00 the Medical morning. Branch predniSONE 2023-0 Yes [id number] 5mg Take 1 [facility] 5 mg tablet 2-09 tablet by ity of 00:00: mouth in [place] 00 the Medical morning. Branch predniSONE 2023-0 Yes [id number] 5mg Take 1 [facility] 5 mg tablet 2-09 tablet by ity of 00:00: mouth in [place] 00 the Medical morning. Branch predniSONE 2023-0 Yes [id number] 5mg Take 1 [facility] 5 mg tablet 2-09 tablet by ity of 00:00: mouth in [place] 00 the Medical morning. Branch predniSONE 2023-0 Yes [id number] 5mg Take 1 [facility] 5 mg tablet 2-09 tablet by ity of 00:00: mouth in [place] 00 the Medical morning. Branch predniSONE 3-0 2023- No [id number] 5mg Take 1 [facility] 5 mg tablet 2-09 07-18 tablet by it y of 00:00: 00:00 mouth in [place] 00 :00 the Medical morning. Branch benzonatate 3-0 Yes [id number] 100mg Take 1 [facility] (TESSALON 1-09 capsule by ity of PERLES) 100 00:00: mouth [place] mg capsule 00 every 8 Medica l (eight) Branch hours as needed for Cough. benzonatate 3-0 Yes [id number] 100mg Take 1 [facility] (TESSALON 1-09 capsule by ity of PERLES) 100 00:00: mouth [place] mg capsule 00 every 8 Medica l (eight) Branch hours as needed for Cough. benzonatate 3-0 Yes [id number] 100mg Take 1 [facility] (TESSALON 1-09 capsule by ity of PERLES) 100 00:00: mouth [place] mg capsule 00 every 8 Medica l (eight) Branch hours as needed for Cough. benzonatate 2023-0 Yes [id number] 100mg Take 1 [facility] (TESSALON 1-09 capsule by ity of PERLES) 100 00:00: mouth [place] mg capsule 00 every 8 Medica l (eight) Branch hours as needed for Cough. benzonatate 3-0 Yes [id number] 100mg Take 1 [facility] (TESSALON 1-09 capsule by ity of PERLES) 100 00:00: mouth [place] mg capsule 00 every 8 Medica l (eight) Branch hours as needed for Cough. benzonatate 2022-0 Yes [id number] 100mg Take 1 [facility] (TESSALON 1-09 capsule by ity of PERLES) 100 00:00: mouth [place] mg capsule 00 every 8 Medica l (eight) Branch hours as needed for Cough. benzonatate 2022-0 Yes [id number] 100mg Take 1 [facility] (TESSALON 1-09 capsule by ity of PERLES) 100 00:00: mouth [place] mg capsule 00 every 8 Medica l (eight) Branch hours as needed for Cough. benzonatate 2022-0 Yes [id number] 100mg Take 1 [facility] (TESSALON 1-09 capsule by ity of PERLES) 100 00:00: mouth [place] mg capsule 00 every 8 Medica l (eight) Branch hours as needed for Cough. benzonatate 2022-0 Yes [id number] 100mg Take 1 [facility] (TESSALON 1-09 capsule by ity of PERLES) 100 00:00: mouth [place] mg capsule 00 every 8 Medica l (eight) Branch hours as needed for Cough. benzonatate 2022-0 Yes [id number] 100mg Take 1 [facility] (TESSALON 1-09 capsule by ity of PERLES) 100 00:00: mouth [place] mg capsule 00 every 8 Medica l (eight) Branch hours as needed for Cough. benzonatate 2022-0 Yes [id number] 100mg Take 1 [facility] (TESSALON 1-09 capsule by ity of PERLES) 100 00:00: mouth [place] mg capsule 00 every 8 Medica l (eight) Branch hours as needed for Cough. benzonatate 2022-0 Yes [id number] 100mg Take 1 [facility] (TESSALON 1-09 capsule by ity of PERLES) 100 00:00: mouth [place] mg capsule 00 every 8 Medica l (eight) Branch hours as needed for Cough. benzonatate 2022-0 Yes [id number] 100mg Take 1 [facility] (TESSALON 1-09 capsule by ity of PERLES) 100 00:00: mouth [place] mg capsule 00 every 8 Medica l (eight) Branch hours as needed for Cough. benzonatate 2022-0 Yes [id number] 100mg Take 1 [facility] (TESSALON 1-09 capsule by ity of PERLES) 100 00:00: mouth [place] mg capsule 00 every 8 Medica l (eight) Branch hours as needed for Cough. benzonatate 2022-0 Yes [id number] 100mg Take 1 [facility] (TESSALON 1-09 capsule by ity of PERLES) 100 00:00: mouth [place] mg capsule 00 every 8 Medica l (eight) Branch hours as needed for Cough. benzonatate 2022-0 Yes [id number] 100mg Take 1 [facility] (TESSALON 1-09 capsule by ity of PERLES) 100 00:00: mouth [place] mg capsule 00 every 8 Medica l (eight) Branch hours as needed for Cough. benzonatate 2022-0 Yes [id number] 100mg Take 1 [facility] (TESSALON 1-09 capsule by ity of PERLES) 100 00:00: mouth [place] mg capsule 00 every 8 Medica l (eight) Branch hours as needed for Cough. benzonatate 2022-0 Yes [id number] 100mg Take 1 [facility] (TESSALON 1-09 capsule by ity of PERLES) 100 00:00: mouth [place] mg capsule 00 every 8 Medica l (eight) Branch hours as needed for Cough. benzonatate 2022-0 Yes [id number] 100mg Take 1 [facility] (TESSALON 1-09 capsule by ity of PERLES) 100 00:00: mouth [place] mg capsule 00 every 8 Medica l (eight) Branch hours as needed for Cough. benzonatate 2022-0 Yes [id number] 100mg Take 1 [facility] (TESSALON 1-09 capsule by ity of PERLES) 100 00:00: mouth [place] mg capsule 00 every 8 Medica l (eight) Branch hours as needed for Cough. benzonatate 2022-0 Yes [id number] 100mg Take 1 [facility] (TESSALON 1-09 capsule by ity of PERLES) 100 00:00: mouth [place] mg capsule 00 every 8 Medica l (eight) Branch hours as needed for Cough. benzonatate 2022-0 Yes [id number] 100mg Take 1 [facility] (TESSALON 1-09 capsule by ity of PERLES) 100 00:00: mouth [place] mg capsule 00 every 8 Medica l (eight) Branch hours as needed for Cough. benzonatate 2023-0 Yes [id number] 100mg Take 1 [facility] (TESSALON 1-09 capsule by ity of PERLES) 100 00:00: mouth [place] mg capsule 00 every 8 Medica l (eight) Branch hours as needed for Cough. benzonatate 2022-0 Yes [id number] 100mg Take 1 [facility] (TESSALON 1-09 capsule by ity of PERLES) 100 00:00: mouth [place] mg capsule 00 every 8 Medica l (eight) Branch hours as needed for Cough. benzonatate 2022-0 Yes [id number] 100mg Take 1 [facility] (TESSALON 1-09 capsule by ity of PERLES) 100 00:00: mouth [place] mg capsule 00 every 8 Medica l (eight) Branch hours as needed for Cough. benzonatate 2022-0 Yes [id number] 100mg Take 1 [facility] (TESSALON 1-09 capsule by ity of PERLES) 100 00:00: mouth [place] mg capsule 00 every 8 Medica l (eight) Branch hours as needed for Cough. benzonatate 2022-0 Yes [id number] 100mg Take 1 [facility] (TESSALON 1-09 capsule by ity of PERLES) 100 00:00: mouth [place] mg capsule 00 every 8 Medica l (eight) Branch hours as needed for Cough. benzonatate 2022-0 Yes [id number] 100mg Take 1 [facility] (TESSALON 1-09 capsule by ity of PERLES) 100 00:00: mouth [place] mg capsule 00 every 8 Medica l (eight) Branch hours as needed for Cough. benzonatate 2022-0 Yes [id number] 100mg Take 1 [facility] (TESSALON 1-09 capsule by ity of PERLES) 100 00:00: mouth [place] mg capsule 00 every 8 Medica l (eight) Branch hours as needed for Cough. benzonatate 2022-0 Yes [id number] 100mg Take 1 [facility] (TESSALON 1-09 capsule by ity of PERLES) 100 00:00: mouth [place] mg capsule 00 every 8 Medica l (eight) Branch hours as needed for Cough. benzonatate 2022-0 Yes [id number] 100mg Take 1 [facility] (TESSALON 1-09 capsule by ity of PERLES) 100 00:00: mouth [place] mg capsule 00 every 8 Medica l (eight) Branch hours as needed for Cough. benzonatate 2022-0 Yes [id number] 100mg Take 1 [facility] (TESSALON 1-09 capsule by ity of PERLES) 100 00:00: mouth [place] mg capsule 00 every 8 Medica l (eight) Branch hours as needed for Cough. benzonatate 2022-0 Yes [id number] 100mg Take 1 [facility] (TESSALON 1-09 capsule by ity of PERLES) 100 00:00: mouth [place] mg capsule 00 every 8 Medica l (eight) Branch hours as needed for Cough. benzonatate 2022-0 Yes [id number] 100mg Take 1 [facility] (TESSALON 1-09 capsule by ity of PERLES) 100 00:00: mouth [place] mg capsule 00 every 8 Medica l (eight) Branch hours as needed for Cough. benzonatate 2022-0 Yes [id number] 100mg Take 1 [facility] (TESSALON 1-09 capsule by ity of PERLES) 100 00:00: mouth [place] mg capsule 00 every 8 Medica l (eight) Branch hours as needed for Cough. benzonatate 2022-0 Yes [id number] 100mg Take 1 [facility] (TESSALON 1-09 capsule by ity of PERLES) 100 00:00: mouth [place] mg capsule 00 every 8 Medica l (eight) Branch hours as needed for Cough. benzonatate 2022-0 Yes [id number] 100mg Take 1 [facility] (TESSALON 1-09 capsule by ity of PERLES) 100 00:00: mouth [place] mg capsule 00 every 8 Medica l (eight) Branch hours as needed for Cough. benzonatate 2022-0 Yes [id number] 100mg Take 1 [facility] (TESSALON 1-09 capsule by ity of PERLES) 100 00:00: mouth [place] mg capsule 00 every 8 Medica l (eight) Branch hours as needed for Cough. benzonatate 2022-0 Yes [id number] 100mg Take 1 [facility] (TESSALON 1-09 capsule by ity of PERLES) 100 00:00: mouth [place] mg capsule 00 every 8 Medica l (eight) Branch hours as needed for Cough. benzonatate 2022-0 Yes [id number] 100mg Take 1 [facility] (TESSALON 1-09 capsule by ity of PERLES) 100 00:00: mouth [place] mg capsule 00 every 8 Medica l (eight) Branch hours as needed for Cough. benzonatate 2022-0 Yes [id number] 100mg Take 1 [facility] (TESSALON 1-09 capsule by ity of PERLES) 100 00:00: mouth [place] mg capsule 00 every 8 Medica l (eight) Branch hours as needed for Cough. benzonatate 2022-0 Yes [id number] 100mg Take 1 [facility] (TESSALON 1-09 capsule by ity of PERLES) 100 00:00: mouth [place] mg capsule 00 every 8 Medica l (eight) Branch hours as needed for Cough. benzonatate 2022-0 Yes [id number] 100mg Take 1 [facility] (TESSALON 1-09 capsule by ity of PERLES) 100 00:00: mouth [place] mg capsule 00 every 8 Medica l (eight) Branch hours as needed for Cough. benzonatate 2022-0 Yes [id number] 100mg Take 1 [facility] (TESSALON 1-09 capsule by ity of PERLES) 100 00:00: mouth [place] mg capsule 00 every 8 Medica l (eight) Branch hours as needed for Cough. benzonatate 2022-0 Yes [id number] 100mg Take 1 [facility] (TESSALON 1-09 capsule by ity of PERLES) 100 00:00: mouth [place] mg capsule 00 every 8 Medica l (eight) Branch hours as needed for Cough. benzonatate 2022-0 Yes [id number] 100mg Take 1 [facility] (TESSALON 1-09 capsule by ity of PERLES) 100 00:00: mouth [place] mg capsule 00 every 8 Medica l (eight) Branch hours as needed for Cough. benzonatate 2022-0 Yes [id number] 100mg Take 1 [facility] (TESSALON 1-09 capsule by ity of PERLES) 100 00:00: mouth [place] mg capsule 00 every 8 Medica l (eight) Branch hours as needed for Cough. benzonatate 2022-0 Yes [id number] 100mg Take 1 [facility] (TESSALON 1-09 capsule by ity of PERLES) 100 00:00: mouth [place] mg capsule 00 every 8 Medica l (eight) Branch hours as needed for Cough. benzonatate 2022-0 Yes [id number] 100mg Take 1 [facility] (TESSALON 1-09 capsule by ity of PERLES) 100 00:00: mouth [place] mg capsule 00 every 8 Medica l (eight) Branch hours as needed for Cough. benzonatate 2022-0 Yes [id number] 100mg Take 1 [facility] (TESSALON 1-09 capsule by ity of PERLES) 100 00:00: mouth [place] mg capsule 00 every 8 Medica l (eight) Branch hours as needed for Cough. benzonatate 2022-0 Yes [id number] 100mg Take 1 [facility] (TESSALON 1-09 capsule by ity of PERLES) 100 00:00: mouth [place] mg capsule 00 every 8 Medica l (eight) Branch hours as needed for Cough. benzonatate 2022-0 Yes [id number] 100mg Take 1 [facility] (TESSALON 1-09 capsule by ity of PERLES) 100 00:00: mouth [place] mg capsule 00 every 8 Medica l (eight) Branch hours as needed for Cough. benzonatate 2022-0 Yes [id number] 100mg Take 1 [facility] (TESSALON 1-09 capsule by ity of PERLES) 100 00:00: mouth [place] mg capsule 00 every 8 Medica l (eight) Branch hours as needed for Cough. benzonatate 2022-0 Yes [id number] 100mg Take 1 [facility] (TESSALON 1-09 capsule by ity of PERLES) 100 00:00: mouth [place] mg capsule 00 every 8 Medica l (eight) Branch hours as needed for Cough. benzonatate 2022-0 Yes [id number] 100mg Take 1 [facility] (TESSALON 1-09 capsule by ity of PERLES) 100 00:00: mouth [place] mg capsule 00 every 8 Medica l (eight) Branch hours as needed for Cough. benzonatate 2022-0 Yes [id number] 100mg Take 1 [facility] (TESSALON 1-09 capsule by ity of PERLES) 100 00:00: mouth [place] mg capsule 00 every 8 Medica l (eight) Branch hours as needed for Cough. benzonatate 2022-0 Yes [id number] 100mg Take 1 [facility] (TESSALON 1-09 capsule by ity of PERLES) 100 00:00: mouth [place] mg capsule 00 every 8 Medica l (eight) Branch hours as needed for Cough. benzonatate 2022-0 Yes [id number] 100mg Take 1 [facility] (TESSALON 1-09 capsule by ity of PERLES) 100 00:00: mouth [place] mg capsule 00 every 8 Medica l (eight) Branch hours as needed for Cough. benzonatate 2022-0 Yes [id number] 100mg Take 1 [facility] (TESSALON 1-09 capsule by ity of PERLES) 100 00:00: mouth [place] mg capsule 00 every 8 Medica l (eight) Branch hours as needed for Cough. benzonatate 2022-0 Yes [id number] 100mg Take 1 [facility] (TESSALON 1-09 capsule by ity of PERLES) 100 00:00: mouth [place] mg capsule 00 every 8 Medica l (eight) Branch hours as needed for Cough. benzonatate 2022-0 Yes [id number] 100mg Take 1 [facility] (TESSALON 1-09 capsule by ity of PERLES) 100 00:00: mouth [place] mg capsule 00 every 8 Medica l (eight) Branch hours as needed for Cough. benzonatate 2022-0 Yes [id number] 100mg Take 1 [facility] (TESSALON 1-09 capsule by ity of PERLES) 100 00:00: mouth [place] mg capsule 00 every 8 Medica l (eight) Branch hours as needed for Cough. benzonatate 2022-0 Yes [id number] 100mg Take 1 [facility] (TESSALON 1-09 capsule by ity of PERLES) 100 00:00: mouth [place] mg capsule 00 every 8 Medica l (eight) Branch hours as needed for Cough. benzonatate 2022-0 Yes [id number] 100mg Take 1 [facility] (TESSALON 1-09 capsule by ity of PERLES) 100 00:00: mouth [place] mg capsule 00 every 8 Medica l (eight) Branch hours as needed for Cough. benzonatate 2022-0 Yes [id number] 100mg Take 1 [facility] (TESSALON 1-09 capsule by ity of PERLES) 100 00:00: mouth [place] mg capsule 00 every 8 Medica l (eight) Branch hours as needed for Cough. benzonatate 2022-0 Yes [id number] 100mg Take 1 [facility] (TESSALON 1-09 capsule by ity of PERLES) 100 00:00: mouth [place] mg capsule 00 every 8 Medica l (eight) Branch hours as needed for Cough. benzonatate 3-0 Yes [id number] 100mg Take 1 [facility] (TESSALON 1-09 capsule by ity of PERLES) 100 00:00: mouth [place] mg capsule 00 every 8 Medica l (eight) Branch hours as needed for Cough. benzonatate 2022-0 Yes [id number] 100mg Take 1 [facility] (TESSALON 1-09 capsule by ity of PERLES) 100 00:00: mouth [place] mg capsule 00 every 8 Medica l (eight) Branch hours as needed for Cough. benzonatate 2022-0 Yes [id number] 100mg Take 1 [facility] (TESSALON 1-09 capsule by ity of PERLES) 100 00:00: mouth [place] mg capsule 00 every 8 Medica l (eight) Branch hours as needed for Cough. benzonatate 2022-0 Yes [id number] 100mg Take 1 [facility] (TESSALON 1-09 capsule by ity of PERLES) 100 00:00: mouth [place] mg capsule 00 every 8 Medica l (eight) Branch hours as needed for Cough. benzonatate 2022-0 Yes [id number] 100mg Take 1 [facility] (TESSALON 1-09 capsule by ity of PERLES) 100 00:00: mouth [place] mg capsule 00 every 8 Medica l (eight) Branch hours as needed for Cough. benzonatate 2022-0 Yes [id number] 100mg Take 1 [facility] (TESSALON 1-09 capsule by ity of PERLES) 100 00:00: mouth [place] mg capsule 00 every 8 Medica l (eight) Branch hours as needed for Cough. benzonatate 2022-0 Yes [id number] 100mg Take 1 [facility] (TESSALON 1-09 capsule by ity of PERLES) 100 00:00: mouth [place] mg capsule 00 every 8 Medica l (eight) Branch hours as needed for Cough. benzonatate 2022-0 Yes [id number] 100mg Take 1 [facility] (TESSALON 1-09 capsule by ity of PERLES) 100 00:00: mouth [place] mg capsule 00 every 8 Medica l (eight) Branch hours as needed for Cough. benzonatate 2022-0 Yes [id number] 100mg Take 1 [facility] (TESSALON 1-09 capsule by ity of PERLES) 100 00:00: mouth [place] mg capsule 00 every 8 Medica l (eight) Branch hours as needed for Cough. benzonatate 3-0 Yes [id number] 100mg Take 1 [facility] (TESSALON 1-09 capsule by ity of PERLES) 100 00:00: mouth [place] mg capsule 00 every 8 Medica l (eight) Branch hours as needed for Cough. benzonatate 2022-0 Yes [id number] 100mg Take 1 [facility] (TESSALON 1-09 capsule by ity of PERLES) 100 00:00: mouth [place] mg capsule 00 every 8 Medica l (eight) Branch hours as needed for Cough. benzonatate 2022-0 Yes [id number] 100mg Take 1 [facility] (TESSALON 1-09 capsule by ity of PERLES) 100 00:00: mouth [place] mg capsule 00 every 8 Medica l (eight) Branch hours as needed for Cough. benzonatate 2022-0 Yes [id number] 100mg Take 1 [facility] (TESSALON 1-09 capsule by ity of PERLES) 100 00:00: mouth [place] mg capsule 00 every 8 Medica l (eight) Branch hours as needed for Cough. benzonatate 2022-0 Yes [id number] 100mg Take 1 [facility] (TESSALON 1-09 capsule by ity of PERLES) 100 00:00: mouth [place] mg capsule 00 every 8 Medica l (eight) Branch hours as needed for Cough. benzonatate 2022-0 Yes [id number] 100mg Take 1 [facility] (TESSALON 1-09 capsule by ity of PERLES) 100 00:00: mouth [place] mg capsule 00 every 8 Medica l (eight) Branch hours as needed for Cough. benzonatate 2022-0 Yes [id number] 100mg Take 1 [facility] (TESSALON 1-09 capsule by ity of PERLES) 100 00:00: mouth [place] mg capsule 00 every 8 Medica l (eight) Branch hours as needed for Cough. benzonatate 2022-0 Yes [id number] 100mg Take 1 [facility] (TESSALON 1-09 capsule by ity of PERLES) 100 00:00: mouth [place] mg capsule 00 every 8 Medica l (eight) Branch hours as needed for Cough. benzonatate 2022-0 Yes [id number] 100mg Take 1 [facility] (TESSALON 1-09 capsule by ity of PERLES) 100 00:00: mouth [place] mg capsule 00 every 8 Medica l (eight) Branch hours as needed for Cough. benzonatate 0 Yes [id number] 100mg Take 1 [facility] (TESSALON 1-09 capsule by ity of PERLES) 100 00:00: mouth [place] mg capsule 00 every 8 Medica l (eight) Branch hours as needed for Cough. benzonatate Yes [id number] 100mg Take 1 [facility] (TESSALON 1-09 capsule by ity of PERLES) 100 00:00: mouth [place] mg capsule 00 every 8 Medica l (eight) Branch hours as needed for Cough. benzonatate Yes [id number] 100mg Take 1 [facility] (TESSALON 1-09 capsule by ity of PERLES) 100 00:00: mouth [place] mg capsule 00 every 8 Medica l (eight) Branch hours as needed for Cough. benzonatate Yes [id number] 100mg Take 1 [facility] (TESSALON 1-09 capsule by ity of PERLES) 100 00:00: mouth [place] mg capsule 00 every 8 Medica l (eight) Branch hours as needed for Cough. benzonatate Yes [id number] 100mg Take 1 [facility] (TESSALON 1-09 capsule by ity of PERLES) 100 00:00: mouth [place] mg capsule 00 every 8 Medica l (eight) Branch hours as needed for Cough. benzonatate Yes [id number] 100mg Take 1 [facility] (TESSALON 1-09 capsule by ity of PERLES) 100 00:00: mouth [place] mg capsule 00 every 8 Medica l (eight) Branch hours as needed for Cough. benzonatate Yes [id number] 100mg Take 1 [facility] (TESSALON 1-09 capsule by ity of PERLES) 100 00:00: mouth [place] mg capsule 00 every 8 Medica l (eight) Branch hours as needed for Cough. benzonatate 0 Yes [id number] 100mg Take 1 [facility] (TESSALON 1-09 capsule by ity of PERLES) 100 00:00: mouth [place] mg capsule 00 every 8 Medica l (eight) Branch hours as needed for Cough. cloNIDine 2022- No [id number] .2mg Un renetta (CATAPRES) 03-08 ity of tablet 0.2 22:00: 21:21 [place] mg 00 :00 Medical Branch cloNIDine 2022-0 2022- No [id number] .2mg 0.2 mg, Univers (CATAPRES) 03-08 Oral, ity of tablet 0.2 22:00: 21:21 ONCE, 1 [place] mg 00 :00 dose, On [facility] 03/08/22 Branch at 1600, Routine cloNIDine 2022-0 2022- No [id number] .2mg Un renetta (CATAPRES) 03-08 ity of tablet 0.2 22:00: 21:21 [place] mg 00 :00 Medical Branch cloNIDine 2022-0 2022- No [id number] .2mg 0.2 mg, Univers (CATAPRES) 03-08 Oral, ity of tablet 0.2 22:00: 21:21 ONCE, 1 [place] as mg 00 :00 dose, On [facility] 03/08/22 Branch at 1600, Routine bumetanide 2022- No 1mg Take 1 mg U nivers 1 mg tablet 03-08 by mouth ity of 15:30: 00:00 in the [place] 31 :00 morning. Medical Indication Branch s: reports kidney Dr Rx, ~2 mths ago bumetanide 2022-2022- No 1mg Take 1 mg U nivers 1 mg tablet 03-08 by mouth ity of 15:30: 00:00 in the [place] 31 :00 morning. Medical Indication Branch s: reports kidney Dr Rx, ~2 mths ago bumetanide 2022-0 2022- No 1mg Take 1 mg U nivers 1 mg tablet 03-08 by mouth ity of 15:30: 00:00 in the [place] 31 :00 morning. Medical Indication Branch s: reports kidney Dr Rx, ~2 mths ago bumetanide 2022-0 2022- No 1mg Take 1 mg U nivers 1 mg tablet 03-08 by mouth ity of 15:30: 00:00 in the [place] 31 :00 morning. Medical Indication Branch s: reports kidney Dr Rx, ~2 mths ago levothyroxi 2022-0 Yes [id number] 150ug Take 1 [facility] ne 150 mcg 1-05 tablet by ity of tablet 00:00: mouth [place] 00 every Medical morning. Branch tamsulosin Yes [id number] .4mg Take 1 [facility] 0.4 mg 24 1-05 9102 capsule by ity of hr capsule 00:00: mouth in [place] as 00 the Medical morning. Branch budesonide 0 Yes [id number] .5mg Inhale 2 [facility] 0.5 mg/2 mL 1-05 mL in the ity of nebulizer 00:00: morning [place] solution 00 and 2 mL Medical in the Branch evening. traZODone Yes [id number] 50mg Take 1 U nivers 50 mg 1-05 tablet by ity of tablet 00:00: mouth at [place] 00 bedtime. Medical Branch doxepin 25 0 Yes [id number] 25mg Take 1 [facility] mg capsule 1-05 capsule by ity of 00:00: mouth at [place] 00 bedtime. Medical Branch glipiZIDE Yes [id number] 2.5mg Take 1 U nivers XL 2.5 [...] Rx, ~2 mths ago arformotero 2022-0 Yes [id number] 15ug Use 2 mL [facility] L 15 mcg/2 1-05 as ity of mL 00:00: directed [place] nebulizer 00 in the Medical solution morning Branch and 2 mL in the evening. ipratropium 0 Yes [id number] .5mg Inhale 2.5 [facility] 0.02 % 1-05 mL every 4 ity of nebulizer 00:00: (four) [place] solution 00 hours as Medical needed for Branch Wheezing or Shortness of Breath. albuterol 0 Yes [id number] 2{puff} Inhale 2 [facility] 90 1-05 Puffs ity of mcg/actuati 00:00: every 6 [place] as on inhaler 00 (six) Medical hours as Branch needed for Wheezing or Shortness of Breath. albuterol Yes [id number] 2.5mg Inhale 3 [facility] 2.5 mg /3 1-05 mL every 2 ity of mL (0.083 00:00: (two) [place] %) 00 hours as Medical nebulizer needed for Bran ch solution Shortness of Breath or Wheezing. cloNIDine Yes [id number] .2mg Take 1 U nivers 0.2 mg 1-05 tablet by ity of tablet 00:00: mouth 3 [place] 00 (three) Medical times Branch daily as needed (Uncontrol led Hypertensi on). Take 1 Tab if BP > 150/90 NIFEdipine 0 Yes [id number] 30mg Take 1 U nivers ER 30 mg 1-05 tablet by ity of tablet 00:00: mouth in [place] 00 the Medical morning. Branch levothyroxi Yes [id number] 150ug Take 1 [facility] ne 150 mcg 1-05 tablet by ity of tablet 00:00: mouth [place] 00 every Medical morning. Branch tamsulosin Yes [id number] .4mg Take 1 [facility] 0.4 mg 24 1-05 9102 capsule by ity of hr capsule 00:00: mouth in [place] as 00 the Medical morning. Branch budesonide Yes [id number] .5mg Inhale 2 [facility] 0.5 mg/2 mL 1-05 mL in the ity of nebulizer 00:00: morning [place] solution 00 and 2 mL Medical in the Branch evening. traZODone 0 Yes [id number] 50mg Take 1 U nivers 50 mg 1-05 tablet by ity of tablet 00:00: mouth at [place] 00 bedtime. Medical Branch doxepin 25 0 Yes [id number] 25mg Take 1 [facility] mg capsule 1-05 capsule by ity of 00:00: mouth at [place] 00 bedtime. Medical Branch glipiZIDE 0 Yes [id number] 2.5mg Take 1 U nivers XL 2.5 [...] Dr Rx, ~2 mths ago arformotero Yes [id number] 15ug Use 2 mL [facility] L 15 mcg/2 1-05 as ity of mL 00:00: directed [place] nebulizer 00 in the Medical solution morning Branch and 2 mL in the evening. ipratropium Yes [id number] .5mg Inhale 2.5 [facility] 0.02 % 1-05 mL every 4 ity of nebulizer 00:00: (four) [place] solution 00 hours as Medical needed for Branch Wheezing or Shortness of Breath. albuterol Yes [id number] 2{puff} Inhale 2 [facility] 90 1-05 Puffs ity of mcg/actuati 00:00: every 6 [place] as on inhaler 00 (six) Medical hours as Branch needed for Wheezing or Shortness of Breath. albuterol Yes [id number] 2.5mg Inhale 3 [facility] 2.5 mg /3 1-05 mL every 2 ity of mL (0.083 00:00: (two) [place] %) 00 hours as Medical nebulizer needed for Bran ch solution Shortness of Breath or Wheezing. cloNIDine Yes [id number] .2mg Take 1 [facility] nivers 0.2 mg 1-05 tablet by ity of tablet 00:00: mouth 3 [place] 00 (three) Medical times Branch daily as needed (Uncontrol led Hypertensi on). Take 1 Tab if BP > 150/90 NIFEdipine Yes [id number] 30mg Take 1 [facility] nivers ER 30 mg 1-05 tablet by ity of tablet 00:00: mouth in [place] 00 the Medical morning. Branch levothyroxi Yes [id number] 150ug Take 1 [facility] ne 150 mcg 1-05 tablet by ity of tablet 00:00: mouth [place] 00 every Medical morning. Branch tamsulosin Yes [id number] .4mg Take 1 [facility] 0.4 mg 24 1-05 9102 capsule by ity of hr capsule 00:00: mouth in [place] as 00 the Medical morning. Branch budesonide Yes [id number] .5mg Inhale 2 [facility] 0.5 mg/2 mL 1-05 mL in the ity of nebulizer 00:00: morning [place] solution 00 and 2 mL Medical in the Branch evening. traZODone 0 Yes [id number] 50mg Take 1 [facility] nivers 50 mg 1-05 tablet by ity of tablet 00:00: mouth at [place] 00 bedtime. Medical Branch doxepin 25 2022-0 Yes [id number] 25mg Take 1 [facility] mg capsule 1-05 capsule by ity of 00:00: mouth at [place] 00 bedtime. Medical Branch glipiZIDE Yes [id number] 2.5mg Take 1 [facility] nivers XL 2.5 [...] Dr Rx, ~2 mths ago arformotero Yes [id number] 15ug Use 2 mL [facility] L 15 mcg/2 1-05 as ity of mL 00:00: directed [place] nebulizer 00 in the Medical solution morning Branch and 2 mL in the evening. ipratropium Yes [id number] .5mg Inhale 2.5 [facility] 0.02 % 1-05 mL every 4 ity of nebulizer 00:00: (four) [place] solution 00 hours as Medical needed for Branch Wheezing or Shortness of Breath. albuterol Yes [id number] 2{puff} Inhale 2 [facility] 90 1-05 Puffs ity of mcg/actuati 00:00: every 6 [place] as on inhaler 00 (six) Medical hours as Branch needed for Wheezing or Shortness of Breath. albuterol 0 Yes [id number] 2.5mg Inhale 3 [facility] 2.5 mg /3 1-05 mL every 2 ity of mL (0.083 00:00: (two) [place] %) 00 hours as Medical nebulizer needed for Bran ch solution Shortness of Breath or Wheezing. cloNIDine Yes [id number] .2mg Take 1 [facility] n[facility] 0.2 mg 1-05 tablet by ity of tablet 00:00: mouth 3 [place] 00 (three) Medical times Branch daily as needed (Uncontrol led Hypertensi on). Take 1 Tab if BP > 150/90 NIFEdipine 2022-0 Yes [id number] 30mg Take 1 [facility] n[facility] ER 30 mg 1-05 tablet by ity of tablet 00:00: mouth in [place] 00 the Medical morning. Branch levothyroxi 2022-0 Yes [id number] 150ug Take 1 [facility] ne 150 mcg 1-05 tablet by ity of tablet 00:00: mouth [place] 00 every Medical morning. Branch tamsulosin Yes [id number] .4mg Take 1 [facility] 0.4 mg 24 1-05 9102 capsule by ity of hr capsule 00:00: mouth in [place] as 00 the Medical morning. Branch budesonide Yes [id number] .5mg Inhale 2 [facility] 0.5 mg/2 mL 1-05 mL in the ity of nebulizer 00:00: morning [place] solution 00 and 2 mL Medical in the Branch evening. traZODone 0 Yes [id number] 50mg Take 1 [facility] nivers 50 mg 1-05 tablet by ity of tablet 00:00: mouth at [place] 00 bedtime. Medical Branch doxepin 25 0 Yes [id number] 25mg Take 1 [facility] mg capsule 1-05 capsule by ity of 00:00: mouth at [place] 00 bedtime. Medical Branch glipiZIDE 0 Yes [id number] 2.5mg Take 1 [facility] n[facility] XL 2.5 mg 1-05 tablet by ity o f 24 hr 00:00: mouth in [place] tablet 00 the Medical morning Branch and 1 tablet in the evening. bumetanide 0 Yes 1mg Take 1 [facility] rs 1 mg tablet 1-05 tablet by ity of 00:00: mouth [place] 00 every Medical morning Branch and evening. Indication s: reports kidney Dr Rx, ~2 mths ago arformotero 2022-0 Yes [id number] 15ug Use 2 mL [facility] L 15 mcg/2 1-05 as ity of mL 00:00: directed [place] nebulizer 00 in the Medical solution morning Branch and 2 mL in the evening. ipratropium 2022-0 Yes [id number] .5mg Inhale 2.5 [facility] 0.02 % 1-05 mL every 4 ity of nebulizer 00:00: (four) [place] solution 00 hours as Medical needed for Branch Wheezing or Shortness of Breath. albuterol Yes [id number] 2{puff} Inhale 2 [facility] 90 1-05 Puffs ity of mcg/actuati 00:00: every 6 [place] as on inhaler 00 (six) Medical hours as Branch needed for Wheezing or Shortness of Breath. albuterol Yes [id number] 2.5mg Inhale 3 [facility] 2.5 mg /3 1-05 mL every 2 ity of mL (0.083 00:00: (two) [place] %) 00 hours as Medical nebulizer needed for Bran ch solution Shortness of Breath or Wheezing. cloNIDine Yes [id number] .2mg Take 1 [facility] n[facility] 0.2 mg 1-05 tablet by ity of tablet 00:00: mouth 3 [place] 00 (three) Medical times Branch daily as needed (Uncontrol led Hypertensi on). Take 1 Tab if BP > 150/90 NIFEdipine Yes [id number] 30mg Take 1 [facility] nivers ER 30 mg 1-05 tablet by ity of tablet 00:00: mouth in [place] 00 the Medical morning. Branch levothyroxi Yes [id number] 150ug Take 1 [facility] ne 150 mcg 1-05 tablet by ity of tablet 00:00: mouth [place] 00 every Medical morning. Branch tamsulosin Yes [id number] .4mg Take 1 [facility] 0.4 mg 24 1-05 9102 capsule by ity of hr capsule 00:00: mouth in [place] as 00 the Medical morning. Branch budesonide Yes [id number] .5mg Inhale 2 [facility] 0.5 mg/2 mL 1-05 mL in the ity of nebulizer 00:00: morning [place] solution 00 and 2 mL Medical in the Branch evening. traZODone 0 Yes [id number] 50mg Take 1 [facility] nivers 50 mg 1-05 tablet by ity of tablet 00:00: mouth at [place] 00 bedtime. Medical Branch doxepin 25 2022-0 Yes [id number] 25mg Take 1 [facility] mg capsule 1-05 capsule by ity of 00:00: mouth at [place] 00 bedtime. Medical Branch glipiZIDE Yes [id number] 2.5mg Take 1 [facility] nivers XL 2.5 [...] Dr Rx, ~2 mths ago arformotero Yes [id number] 15ug Use 2 mL [facility] L 15 mcg/2 1-05 as ity of mL 00:00: directed [place] nebulizer 00 in the Medical solution morning Branch and 2 mL in the evening. ipratropium Yes [id number] .5mg Inhale 2.5 [facility] 0.02 % 1-05 mL every 4 ity of nebulizer 00:00: (four) [place] solution 00 hours as Medical needed for Branch Wheezing or Shortness of Breath. albuterol Yes [id number] 2{puff} Inhale 2 [facility] 90 1-05 Puffs ity of mcg/actuati 00:00: every 6 [place] as on inhaler 00 (six) Medical hours as Branch needed for Wheezing or Shortness of Breath. albuterol Yes [id number] 2.5mg Inhale 3 [facility] 2.5 mg /3 1-05 mL every 2 ity of mL (0.083 00:00: (two) [place] %) 00 hours as Medical nebulizer needed for Bran ch solution Shortness of Breath or Wheezing. cloNIDine Yes [id number] .2mg Take 1 [facility] nivers 0.2 mg 1-05 tablet by ity of tablet 00:00: mouth 3 [place] 00 (three) Medical times Branch daily as needed (Uncontrol led Hypertensi on). Take 1 Tab if BP > 150/90 NIFEdipine Yes [id number] 30mg Take 1 [facility] nivers ER 30 mg 1-05 tablet by ity of tablet 00:00: mouth in [place] 00 the Medical morning. Branch levothyroxi Yes [id number] 150ug Take 1 [facility] ne 150 mcg 1-05 tablet by ity of tablet 00:00: mouth [place] 00 every Medical morning. Branch tamsulosin 0 Yes [id number] .4mg Take 1 [facility] 0.4 mg 24 1-05 9102 capsule by ity of hr capsule 00:00: mouth in [place] as 00 the Medical morning. Branch budesonide 0 Yes [id number] .5mg Inhale 2 [facility] 0.5 mg/2 mL 1-05 mL in the ity of nebulizer 00:00: morning [place] solution 00 and 2 mL Medical in the Branch evening. traZODone 0 Yes [id number] 50mg Take 1 [facility] nivers 50 mg 1-05 tablet by ity of tablet 00:00: mouth at [place] 00 bedtime. Medical Branch doxepin 25 0 Yes [id number] 25mg Take 1 [facility] mg capsule 1-05 capsule by ity of 00:00: mouth at [place] 00 bedtime. Medical Branch glipiZIDE 0 Yes [id number] 2.5mg Take 1 [facility] nivers XL 2.5 [...] Rx, ~2 mths ago arformotero 0 Yes [id number] 15ug Use 2 mL [facility] L 15 mcg/2 1-05 as ity of mL 00:00: directed [place] nebulizer 00 in the Medical solution morning Branch and 2 mL in the evening. ipratropium 0 Yes [id number] .5mg Inhale 2.5 [facility] 0.02 % 1-05 mL every 4 ity of nebulizer 00:00: (four) [place] solution 00 hours as Medical needed for Branch Wheezing or Shortness of Breath. albuterol 2022-0 Yes [id number] 2{puff} Inhale 2 [facility] 90 1-05 Puffs ity of mcg/actuati 00:00: every 6 [place] as on inhaler 00 (six) Medical hours as Branch needed for Wheezing or Shortness of Breath. albuterol 2022-0 Yes [id number] 2.5mg Inhale 3 [facility] 2.5 mg /3 1-05 mL every 2 ity of mL (0.083 00:00: (two) [place] %) 00 hours as Medical nebulizer needed for Bran ch solution Shortness of Breath or Wheezing. cloNIDine Yes [id number] .2mg Take 1 [facility] nivers 0.2 mg 1-05 tablet by ity of tablet 00:00: mouth 3 [place] 00 (three) Medical times Branch daily as needed (Uncontrol led Hypertensi on). Take 1 Tab if BP > 150/90 NIFEdipine 0 Yes [id number] 30mg Take 1 [facility] nivers ER 30 mg 1-05 tablet by ity of tablet 00:00: mouth in [place] 00 the Medical morning. Branch levothyroxi Yes [id number] 150ug Take 1 [facility] ne 150 mcg 1-05 tablet by ity of tablet 00:00: mouth [place] 00 every Medical morning. Branch tamsulosin Yes [id number] .4mg Take 1 [facility] 0.4 mg 24 1-05 9102 capsule by ity of hr capsule 00:00: mouth in [place] as 00 the Medical morning. Branch budesonide Yes [id number] .5mg Inhale 2 [facility] 0.5 mg/2 mL 1-05 mL in the ity of nebulizer 00:00: morning [place] solution 00 and 2 mL Medical in the Branch evening. traZODone Yes [id number] 50mg Take 1 [facility] nivers 50 mg 1-05 tablet by ity of tablet 00:00: mouth at [place] 00 bedtime. Medical Branch doxepin 25 0 Yes [id number] 25mg Take 1 [facility] mg capsule 1-05 capsule by ity of 00:00: mouth at [place] 00 bedtime. Medical Branch glipiZIDE Yes [id number] 2.5mg Take 1 [facility] nivers XL 2.5 [...] Dr Rx, ~2 mths ago arformotero Yes [id number] 15ug Use 2 mL [facility] L 15 mcg/2 1-05 as ity of mL 00:00: directed [place] nebulizer 00 in the Medical solution morning Branch and 2 mL in the evening. ipratropium Yes [id number] .5mg Inhale 2.5 [facility] 0.02 % 1-05 mL every 4 ity of nebulizer 00:00: (four) [place] solution 00 hours as Medical needed for Branch Wheezing or Shortness of Breath. albuterol Yes [id number] 2{puff} Inhale 2 [facility] 90 1-05 Puffs ity of mcg/actuati 00:00: every 6 [place] as on inhaler 00 (six) Medical hours as Branch needed for Wheezing or Shortness of Breath. albuterol Yes [id number] 2.5mg Inhale 3 [facility] 2.5 mg /3 1-05 mL every 2 ity of mL (0.083 00:00: (two) [place] ) 00 hours as Medical nebulizer needed for Bran ch solution Shortness of Breath or Wheezing. cloNIDine Yes [id number] .2mg Take 1 [facility] nivers 0.2 mg 1-05 tablet by ity of tablet 00:00: mouth 3 [place] 00 (three) Medical times Branch daily as needed (Uncontrol led Hypertensi on). Take 1 Tab if BP > 150/90 NIFEdipine Yes [id number] 30mg Take 1 [facility] nivers ER 30 mg 1-05 tablet by ity of tablet 00:00: mouth in [place] 00 the Medical morning. Branch levothyroxi Yes [id number] 150ug Take 1 [facility] ne 150 mcg 1-05 tablet by ity of tablet 00:00: mouth [place] 00 every Medical morning. Branch tamsulosin Yes [id number] .4mg Take 1 [facility] 0.4 mg 24 1-05 9102 capsule by ity of hr capsule 00:00: mouth in [place] as 00 the Medical morning. Branch budesonide Yes [id number] .5mg Inhale 2 [facility] 0.5 mg/2 mL 1-05 mL in the ity of nebulizer 00:00: morning [place] solution 00 and 2 mL Medical in the Branch evening. traZODone Yes [id number] 50mg Take 1 [facility] nivers 50 mg 1-05 tablet by ity of tablet 00:00: mouth at [place] 00 bedtime. Medical Branch doxepin 25 Yes [id number] 25mg Take 1 [facility] mg capsule 1-05 capsule by ity of 00:00: mouth at [place] 00 bedtime. Medical Branch glipiZIDE Yes [id number] 2.5mg Take 1 [facility] nivers XL 2.5 [...] Dr Rx, ~2 mths ago arformotero Yes [id number] 15ug Use 2 mL [facility] L 15 mcg/2 1-05 as ity of mL 00:00: directed [place] nebulizer 00 in the Medical solution morning Branch and 2 mL in the evening. ipratropium Yes [id number] .5mg Inhale 2.5 [facility] 0.02 % 1-05 mL every 4 ity of nebulizer 00:00: (four) [place] solution 00 hours as Medical needed for Branch Wheezing or Shortness of Breath. albuterol Yes [id number] 2{puff} Inhale 2 [facility] 90 1-05 Puffs ity of mcg/actuati 00:00: every 6 [place] as on inhaler 00 (six) Medical hours as Branch needed for Wheezing or Shortness of Breath. albuterol Yes [id number] 2.5mg Inhale 3 [facility] 2.5 mg /3 1-05 mL every 2 ity of mL (0.083 00:00: (two) [place] %) 00 hours as Medical nebulizer needed for Bran ch solution Shortness of Breath or Wheezing. cloNIDine Yes [id number] .2mg Take 1 [facility] nivers 0.2 mg 1-05 tablet by ity of tablet 00:00: mouth 3 [place] 00 (three) Medical times Branch daily as needed (Uncontrol led Hypertensi on). Take 1 Tab if BP > 150/90 NIFEdipine 0 Yes [id number] 30mg Take 1 [facility] nivers ER 30 mg 1-05 tablet by ity of tablet 00:00: mouth in [place] 00 the Medical morning. Branch levothyroxi 0 Yes [id number] 150ug Take 1 [facility] ne 150 mcg 1-05 tablet by ity of tablet 00:00: mouth [place] 00 every Medical morning. Branch tamsulosin 0 Yes [id number] .4mg Take 1 [facility] 0.4 mg 24 1-05 9102 capsule by ity of hr capsule 00:00: mouth in [place] as 00 the Medical morning. Branch budesonide 0 Yes [id number] .5mg Inhale 2 [facility] 0.5 mg/2 mL 1-05 mL in the ity of nebulizer 00:00: morning [place] solution 00 and 2 mL Medical in the Branch evening. traZODone 0 Yes [id number] 50mg Take 1 [facility] nivers 50 mg 1-05 tablet by ity of tablet 00:00: mouth at [place] [address] bedtime. Medical Branch doxepin 25 0 Yes [id number] 25mg Take 1 [facility] mg capsule 1-05 capsule by ity of 00:00: mouth at [place] [address] bedtime. Medical Branch glipiZIDE 0 Yes [id number] 2.5mg Take 1 [facility] nivers XL 2.5 mg 1-05 tablet by ity o f 24 hr 00:00: mouth in [place] tablet 00 the Medical morning Branch and 1 tablet in the evening. bumetanide Yes 1mg Take 1 [facility] rs 1 mg tablet 1-05 tablet by ity of 00:00: mouth [place] 00 every Medical morning Branch and evening. Indication s: reports kidney Dr Rx, ~2 mths ago arformotero 2022-0 Yes [id number] 15ug Use 2 mL [facility] L 15 mcg/2 1-05 as ity of mL 00:00: directed [place] nebulizer 00 in the Medical solution morning Branch and 2 mL in the evening. ipratropium 2022-0 Yes [id number] .5mg Inhale 2.5 [facility] 0.02 % 1-05 mL every 4 ity of nebulizer 00:00: (four) [place] solution 00 hours as Medical needed for Branch Wheezing or Shortness of Breath. albuterol 0 Yes [id number] 2{puff} Inhale 2 [facility] 90 1-05 Puffs ity of mcg/actuati 00:00: every 6 [place] as on inhaler 00 (six) Medical hours as Branch needed for Wheezing or Shortness of Breath. albuterol 0 Yes [id number] 2.5mg Inhale 3 [facility] 2.5 mg /3 1-05 mL every 2 ity of mL (0.083 00:00: (two) [place] %) 00 hours as Medical nebulizer needed for Bran ch solution Shortness of Breath or Wheezing. cloNIDine Yes [id number] .2mg Take 1 [facility] nivers 0.2 mg 1-05 tablet by ity of tablet 00:00: mouth 3 [place] 00 (three) Medical times Branch daily as needed (Uncontrol led Hypertensi on). Take 1 Tab if BP > 150/90 NIFEdipine 2022-0 Yes [id number] 30mg Take 1 [facility] nivers ER 30 mg 1-05 tablet by ity of tablet 00:00: mouth in [place] 00 the Medical morning. Branch levothyroxi Yes [id number] 150ug Take 1 [facility] ne 150 mcg 1-05 tablet by ity of tablet 00:00: mouth [place] 00 every Medical morning. Branch tamsulosin Yes [id number] .4mg Take 1 [facility] 0.4 mg 24 1-05 9102 capsule by ity of hr capsule 00:00: mouth in [place] as 00 the Medical morning. Branch budesonide Yes [id number] .5mg Inhale 2 [facility] 0.5 mg/2 mL 1-05 mL in the ity of nebulizer 00:00: morning [place] solution 00 and 2 mL Medical in the Branch evening. traZODone 0 Yes [id number] 50mg Take 1 [facility] nivers 50 mg 1-05 tablet by ity of tablet 00:00: mouth at [place] 00 bedtime. Medical Branch doxepin 25 0 Yes [id number] 25mg Take 1 [facility] mg capsule 1-05 capsule by ity of 00:00: mouth at [place] 00 bedtime. Medical Branch glipiZIDE 2022-0 Yes [id number] 2.5mg Take 1 [facility] nivers XL 2.5 [...] Dr Rx, ~2 mths ago arformotero Yes [id number] 15ug Use 2 mL [facility] L 15 mcg/2 1-05 as ity of mL 00:00: directed [place] nebulizer 00 in the Medical solution morning Branch and 2 mL in the evening. ipratropium Yes [id number] .5mg Inhale 2.5 [facility] 0.02 % 1-05 mL every 4 ity of nebulizer 00:00: (four) [place] solution 00 hours as Medical needed for Branch Wheezing or Shortness of Breath. albuterol Yes [id number] 2{puff} Inhale 2 [facility] 90 1-05 Puffs ity of mcg/actuati 00:00: every 6 [place] as on inhaler 00 (six) Medical hours as Branch needed for Wheezing or Shortness of Breath. albuterol Yes [id number] 2.5mg Inhale 3 [facility] 2.5 mg /3 1-05 mL every 2 ity of mL (0.083 00:00: (two) [place] %) 00 hours as Medical nebulizer needed for Bran ch solution Shortness of Breath or Wheezing. cloNIDine Yes [id number] .2mg Take 1 [facility] nivers 0.2 mg 1-05 tablet by ity of tablet 00:00: mouth 3 [place] 00 (three) Medical times Branch daily as needed (Uncontrol led Hypertensi on). Take 1 Tab if BP > 150/90 NIFEdipine Yes [id number] 30mg Take 1 [facility] nivers ER 30 mg 1-05 tablet by ity of tablet 00:00: mouth in [place] 00 the Medical morning. Branch levothyroxi Yes [id number] 150ug Take 1 [facility] ne 150 mcg 1-05 tablet by ity of tablet 00:00: mouth [place] 00 every Medical morning. Branch tamsulosin Yes [id number] .4mg Take 1 [facility] 0.4 mg 24 1-05 9102 capsule by ity of hr capsule 00:00: mouth in [place] as 00 the Medical morning. Branch budesonide 2022-0 Yes [id number] .5mg Inhale 2 [facility] 0.5 mg/2 mL 1-05 mL in the ity of nebulizer 00:00: morning [place] solution 00 and 2 mL Medical in the Branch evening. traZODone 2022-0 Yes [id number] 50mg Take 1 [facility] nivers 50 mg 1-05 tablet by ity of tablet 00:00: mouth at [place] 00 bedtime. Medical Branch doxepin 25 2022-0 Yes [id number] 25mg Take 1 [facility] mg capsule 1-05 capsule by ity of 00:00: mouth at [place] 00 bedtime. Medical Branch glipiZIDE 2022-0 Yes [id number] 2.5mg Take 1 [facility] nivers XL 2.5 [...] Rx, ~2 mths ago arformotero 2022-0 Yes [id number] 15ug Use 2 mL [facility] L 15 mcg/2 1-05 as ity of mL 00:00: directed [place] nebulizer 00 in the Medical solution morning Branch and 2 mL in the evening. ipratropium 2022-0 Yes [id number] .5mg Inhale 2.5 [facility] 0.02 % 1-05 mL every 4 ity of nebulizer 00:00: (four) [place] solution 00 hours as Medical needed for Branch Wheezing or Shortness of Breath. albuterol 2022-0 Yes [id number] 2{puff} Inhale 2 [facility] 90 1-05 Puffs ity of mcg/actuati 00:00: every 6 [place] as on inhaler 00 (six) Medical hours as Branch needed for Wheezing or Shortness of Breath. albuterol 2022-0 Yes [id number] 2.5mg Inhale 3 [facility] 2.5 mg /3 1-05 mL every 2 ity of mL (0.083 00:00: (two) [place] %) 00 hours as Medical nebulizer needed for Bran ch solution Shortness of Breath or Wheezing. cloNIDine Yes [id number] .2mg Take 1 [facility] nivers 0.2 mg 1-05 tablet by ity of tablet 00:00: mouth 3 [place] 00 (three) Medical times Branch daily as needed (Uncontrol led Hypertensi on). Take 1 Tab if BP > 150/90 NIFEdipine Yes [id number] 30mg Take 1 [facility] nivers ER 30 mg 1-05 tablet by ity of tablet 00:00: mouth in [place] 00 the Medical morning. Branch levothyroxi Yes [id number] 150ug Take 1 [facility] ne 150 mcg 1-05 tablet by ity of tablet 00:00: mouth [place] 00 every Medical morning. Branch tamsulosin Yes [id number] .4mg Take 1 [facility] 0.4 mg 24 1-05 9102 capsule by ity of hr capsule 00:00: mouth in [place] as 00 the Medical morning. Branch budesonide Yes [id number] .5mg Inhale 2 [facility] 0.5 mg/2 mL 1-05 mL in the ity of nebulizer 00:00: morning [place] solution 00 and 2 mL Medical in the Branch evening. traZODone Yes [id number] 50mg Take 1 [facility] nivers 50 mg 1-05 tablet by ity of tablet 00:00: mouth at [place] 00 bedtime. [facility] Branch doxepin 25 Yes [id number] 25mg Take 1 [facility] mg capsule 1-05 capsule by ity of 00:00: mouth at [place] 00 bedtime. Medical Branch glipiZIDE Yes [id number] 2.5mg Take 1 U nivers XL 2.5 [...] Dr Rx, ~2 mths ago arformotero Yes [id number] 15ug Use 2 mL [facility] L 15 mcg/2 1-05 as ity of mL 00:00: directed [place] nebulizer 00 in the Medical solution morning Branch and 2 mL in the evening. ipratropium Yes [id number] .5mg Inhale 2.5 [facility] 0.02 % 1-05 mL every 4 ity of nebulizer 00:00: (four) [place] solution 00 hours as Medical needed for Branch Wheezing or Shortness of Breath. albuterol 0 Yes [id number] 2{puff} Inhale 2 [facility] 90 1-05 Puffs ity of mcg/actuati 00:00: every 6 [place] as on inhaler 00 (six) Medical hours as Branch needed for Wheezing or Shortness of Breath. albuterol Yes [id number] 2.5mg Inhale 3 [facility] 2.5 mg /3 1-05 mL every 2 ity of mL (0.083 00:00: (two) [place] ) 00 hours as Medical nebulizer needed for Bran ch solution Shortness of Breath or Wheezing. cloNIDine Yes [id number] .2mg Take 1 [facility] nivers 0.2 mg 1-05 tablet by ity of tablet 00:00: mouth 3 [place] 00 (three) Medical times Branch daily as needed (Uncontrol led Hypertensi on). Take 1 Tab if BP > 150/90 NIFEdipine Yes [id number] 30mg Take 1 [facility] nivers ER 30 mg 1-05 tablet by ity of tablet 00:00: mouth in [place] 00 the Medical morning. Branch levothyroxi 0 Yes [id number] 150ug Take 1 [facility] ne 150 mcg 1-05 tablet by ity of tablet 00:00: mouth [place] 00 every Medical morning. Branch tamsulosin 0 Yes [id number] .4mg Take 1 [facility] 0.4 mg 24 1-05 9102 capsule by ity of hr capsule 00:00: mouth in [place] as 00 the Medical morning. Branch budesonide 0 Yes [id number] .5mg Inhale 2 [facility] 0.5 mg/2 mL 1-05 mL in the ity of nebulizer 00:00: morning [place] solution 00 and 2 mL Medical in the Branch evening. traZODone 0 Yes [id number] 50mg Take 1 [facility] nivers 50 mg 1-05 tablet by ity of tablet 00:00: mouth at [place] 00 bedtime. Medical Branch doxepin 25 Yes [id number] 25mg Take 1 [facility] mg capsule 1-05 capsule by ity of 00:00: mouth at [place] 00 bedtime. Medical Branch glipiZIDE Yes [id number] 2.5mg Take 1 U nivers XL 2.5 [...] Dr Rx, ~2 mths ago arformotero Yes [id number] 15ug Use 2 mL [facility] L 15 mcg/2 1-05 as ity of mL 00:00: directed [place] nebulizer 00 in the Medical solution morning Branch and 2 mL in the evening. ipratropium Yes [id number] .5mg Inhale 2.5 [facility] 0.02 % 1-05 mL every 4 ity of nebulizer 00:00: (four) [place] solution 00 hours as Medical needed for Branch Wheezing or Shortness of Breath. albuterol Yes [id number] 2{puff} Inhale 2 [facility] 90 1-05 Puffs ity of mcg/actuati 00:00: every 6 [place] as on inhaler 00 (six) Medical hours as Branch needed for Wheezing or Shortness of Breath. albuterol Yes [id number] 2.5mg Inhale 3 [facility] 2.5 mg /3 1-05 mL every 2 ity of mL (0.083 00:00: (two) [place] %) 00 hours as Medical nebulizer needed for Bran ch solution Shortness of Breath or Wheezing. cloNIDine Yes [id number] .2mg Take 1 [facility] nivers 0.2 mg 1-05 tablet by ity of tablet 00:00: mouth 3 [place] 00 (three) Medical times Branch daily as needed (Uncontrol led Hypertensi on). Take 1 Tab if BP > 150/90 NIFEdipine Yes [id number] 30mg Take 1 U nivers ER 30 mg 1-05 tablet by ity of tablet 00:00: mouth in [place] 00 the Medical morning. Branch levothyroxi Yes [id number] 150ug Take 1 [facility] ne 150 mcg 1-05 tablet by ity of tablet 00:00: mouth [place] 00 every Medical morning. Branch tamsulosin Yes [id number] .4mg Take 1 [facility] 0.4 mg 24 1-05 9102 capsule by ity of hr capsule 00:00: mouth in [place] as 00 the Medical morning. Branch budesonide 0 Yes [id number] .5mg Inhale 2 [facility] 0.5 mg/2 mL 1-05 mL in the ity of nebulizer 00:00: morning [place] solution 00 and 2 mL Medical in the Branch evening. traZODone 0 Yes [id number] 50mg Take 1 U nivers 50 mg 1-05 tablet by ity of tablet 00:00: mouth at [place] 00 bedtime. Medical Branch doxepin 25 Yes [id number] 25mg Take 1 [facility] mg capsule 1-05 capsule by ity of 00:00: mouth at [place] 00 bedtime. Medical Branch glipiZIDE Yes [id number] 2.5mg Take 1 U nivers XL 2.5 mg 1-05 tablet by ity o f 24 hr 00:00: mouth in [place] tablet 00 the Medical morning Branch and 1 tablet in the evening. bumetanide Yes 1mg Take 1 [facility] rs 1 mg tablet 1-05 tablet by ity of 00:00: mouth [place] 00 every Medical morning Branch and evening. Indication s: reports kidney Dr Rx, ~2 mths ago arformotero 0 Yes [id number] 15ug Use 2 mL [facility] L 15 mcg/2 1-05 as ity of mL 00:00: directed [place] nebulizer 00 in the Medical solution morning Branch and 2 mL in the evening. ipratropium 0 Yes [id number] .5mg Inhale 2.5 [facility] 0.02 % 1-05 mL every 4 ity of nebulizer 00:00: (four) [place] solution 00 hours as Medical needed for Branch Wheezing or Shortness of Breath. albuterol 2022-0 Yes [id number] 2{puff} Inhale 2 [facility] 90 1-05 Puffs ity of mcg/actuati 00:00: every 6 [place] as on inhaler 00 (six) Medical hours as Branch needed for Wheezing or Shortness of Breath. albuterol Yes [id number] 2.5mg Inhale 3 [facility] 2.5 mg /3 1-05 mL every 2 ity of mL (0.083 00:00: (two) [place] %) 00 hours as Medical nebulizer needed for Bran ch solution Shortness of Breath or Wheezing. cloNIDine 0 Yes [id number] .2mg Take 1 U nivers 0.2 mg 1-05 tablet by ity of tablet 00:00: mouth 3 [place] 00 (three) Medical times Branch daily as needed (Uncontrol led Hypertensi on). Take 1 Tab if BP > 150/90 NIFEdipine 2022-0 Yes [id number] 30mg Take 1 U nivers ER 30 mg 1-05 tablet by it[facility] of tablet 00:00: mouth in [place] 00 the Medical morning. Branch levothyroxi Yes [id number] 150ug Take 1 [facility] ne 150 mcg 1-05 tablet by ity of tablet 00:00: mouth [place] 00 every Medical morning. Branch tamsulosin Yes [id number] .4mg Take 1 [facility] 0.4 mg 24 1-05 9102 capsule by ity of hr capsule 00:00: mouth in [place] as 00 the Medical morning. Branch budesonide Yes [id number] .5mg Inhale 2 [facility] 0.5 mg/2 mL 1-05 mL in the ity of nebulizer 00:00: morning [place] solution 00 and 2 mL Medical in the Branch evening. traZODone 2022-0 Yes [id number] 50mg Take 1 [facility] nivers 50 mg 1-05 tablet by it[facility] of tablet 00:00: mouth at [place] 00 bedtime. Medical Branch doxepin 25 2022-0 Yes [id number] 25mg Take 1 [facility] mg capsule 1-05 capsule by ity of 00:00: mouth at [place] 00 bedtime. Medical Branch glipiZIDE 2022-0 Yes [id number] 2.5mg Take 1 [facility] nivers XL 2.5 [...] Dr Rx, ~2 mths ago arformotero Yes [id number] 15ug Use 2 mL [facility] L 15 mcg/2 1-05 as ity of mL 00:00: directed [place] nebulizer 00 in the Medical solution morning Branch and 2 mL in the evening. ipratropium Yes [id number] .5mg Inhale 2.5 [facility] 0.02 % 1-05 mL every 4 ity of nebulizer 00:00: (four) [place] solution 00 hours as Medical needed for Branch Wheezing or Shortness of Breath. albuterol Yes [id number] 2{puff} Inhale 2 [facility] 90 1-05 Puffs ity of mcg/actuati 00:00: every 6 [place] as on inhaler 00 (six) Medical hours as Branch needed for Wheezing or Shortness of Breath. albuterol Yes [id number] 2.5mg Inhale 3 [facility] 2.5 mg /3 1-05 mL every 2 ity of mL (0.083 00:00: (two) [place] %) 00 hours as Medical nebulizer needed for Bran ch solution Shortness of Breath or Wheezing. cloNIDine Yes [id number] .2mg Take 1 [facility] nivers 0.2 mg 1-05 tablet by ity of tablet 00:00: mouth 3 [place] 00 (three) Medical times Branch daily as needed (Uncontrol led Hypertensi on). Take 1 Tab if BP > 150/90 NIFEdipine Yes [id number] 30mg Take 1 [facility] nivers ER 30 mg 1-05 tablet by ity of tablet 00:00: mouth in [place] 00 the Medical morning. Branch levothyroxi Yes [id number] 150ug Take 1 [facility] ne 150 mcg 1-05 tablet by ity of tablet 00:00: mouth [place] 00 every Medical morning. Branch tamsulosin Yes [id number] .4mg Take 1 [facility] 0.4 mg 24 1-05 9102 capsule by ity of hr capsule 00:00: mouth in [place] as 00 the Medical morning. Branch budesonide Yes [id number] .5mg Inhale 2 [facility] 0.5 mg/2 mL 1-05 mL in the ity of nebulizer 00:00: morning [place] solution 00 and 2 mL Medical in the Branch evening. traZODone 0 Yes [id number] 50mg Take 1 [facility] nivers 50 mg 1-05 tablet by ity of tablet 00:00: mouth at [place] 00 bedtime. Medical Branch doxepin 25 0 Yes [id number] 25mg Take 1 [facility] mg capsule 1-05 capsule by ity of 00:00: mouth at [place] 00 bedtime. Medical Branch glipiZIDE Yes [id number] 2.5mg Take 1 [facility] nivers XL 2.5 [...] Dr Rx, ~2 mths ago arformotero Yes [id number] 15ug Use 2 mL [facility] L 15 mcg/2 1-05 as ity of mL 00:00: directed [place] nebulizer 00 in the Medical solution morning Branch and 2 mL in the evening. ipratropium Yes [id number] .5mg Inhale 2.5 [facility] 0.02 % 1-05 mL every 4 ity of nebulizer 00:00: (four) [place] solution 00 hours as Medical needed for Branch Wheezing or Shortness of Breath. albuterol Yes [id number] 2{puff} Inhale 2 [facility] 90 1-05 Puffs ity of mcg/actuati 00:00: every 6 [place] as on inhaler 00 (six) Medical hours as Branch needed for Wheezing or Shortness of Breath. albuterol 0 Yes [id number] 2.5mg Inhale 3 [facility] 2.5 mg /3 1-05 mL every 2 ity of mL (0.083 00:00: (two) [place] %) 00 hours as Medical nebulizer needed for Bran ch solution Shortness of Breath or Wheezing. cloNIDine Yes [id number] .2mg Take 1 [facility] nivers 0.2 mg 1-05 tablet by ity of tablet 00:00: mouth 3 [place] 00 (three) Medical times Branch daily as needed (Uncontrol led Hypertensi on). Take 1 Tab if BP > 150/90 NIFEdipine 0 Yes [id number] 30mg Take 1 [facility] nivers ER 30 mg 1-05 tablet by ity of tablet 00:00: mouth in [place] 00 the Medical morning. Branch levothyroxi Yes [id number] 150ug Take 1 [facility] ne 150 mcg 1-05 tablet by ity of tablet 00:00: mouth [place] 00 every Medical morning. Branch tamsulosin Yes [id number] .4mg Take 1 [facility] 0.4 mg 24 1-05 9102 capsule by ity of hr capsule 00:00: mouth in [place] as 00 the Medical morning. Branch budesonide Yes [id number] .5mg Inhale 2 [facility] 0.5 mg/2 mL 1-05 mL in the ity of nebulizer 00:00: morning [place] solution 00 and 2 mL Medical in the Branch evening. traZODone 0 Yes [id number] 50mg Take 1 [facility] nivers 50 mg 1-05 tablet by ity of tablet 00:00: mouth at [place] 00 bedtime. Medical Branch doxepin 25 0 Yes [id number] 25mg Take 1 [facility] mg capsule 1-05 capsule by ity of 00:00: mouth at [place] 00 bedtime. Medical Branch glipiZIDE 0 Yes [id number] 2.5mg Take 1 [facility] nivers XL 2.5 [...] Rx, ~2 mths ago arformotero 0 Yes [id number] 15ug Use 2 mL [facility] L 15 mcg/2 1-05 as ity of mL 00:00: directed [place] nebulizer 00 in the Medical solution morning Branch and 2 mL in the evening. ipratropium 0 Yes [id number] .5mg Inhale 2.5 [facility] 0.02 % 1-05 mL every 4 ity of nebulizer 00:00: (four) [place] solution 00 hours as Medical needed for Branch Wheezing or Shortness of Breath. albuterol Yes [id number] 2{puff} Inhale 2 [facility] 90 1-05 Puffs ity of mcg/actuati 00:00: every 6 [place] as on inhaler 00 (six) Medical hours as Branch needed for Wheezing or Shortness of Breath. albuterol Yes [id number] 2.5mg Inhale 3 [facility] 2.5 mg /3 1-05 mL every 2 ity of mL (0.083 00:00: (two) [place] %) 00 hours as Medical nebulizer needed for Bran ch solution Shortness of Breath or Wheezing. cloNIDine Yes [id number] .2mg Take 1 [facility] nivers 0.2 mg 1-05 tablet by ity of tablet 00:00: mouth 3 [place] 00 (three) Medical times Branch daily as needed (Uncontrol led Hypertensi on). Take 1 Tab if BP > 150/90 NIFEdipine Yes [id number] 30mg Take 1 [facility] nivers ER 30 mg 1-05 tablet by ity of tablet 00:00: mouth in [place] 00 the Medical morning. Branch levothyroxi Yes [id number] 150ug Take 1 [facility] ne 150 mcg 1-05 tablet by ity of tablet 00:00: mouth [place] 00 every Medical morning. Branch tamsulosin Yes [id number] .4mg Take 1 [facility] 0.4 mg 24 1-05 9102 capsule by ity of hr capsule 00:00: mouth in [place] as 00 the Medical morning. Branch budesonide Yes [id number] .5mg Inhale 2 [facility] 0.5 mg/2 mL 1-05 mL in the ity of nebulizer 00:00: morning [place] solution 00 and 2 mL Medical in the Branch evening. traZODone 0 Yes [id number] 50mg Take 1 [facility] nivers 50 mg 1-05 tablet by ity of tablet 00:00: mouth at [place] 00 bedtime. Medical Branch doxepin 25 0 Yes [id number] 25mg Take 1 [facility] mg capsule 1-05 capsule by ity of 00:00: mouth at [place] 00 bedtime. Medical Branch glipiZIDE Yes [id number] 2.5mg Take 1 [facility] nivers XL 2.5 [...] Dr Rx, ~2 mths ago arformotero Yes [id number] 15ug Use 2 mL [facility] L 15 mcg/2 1-05 as ity of mL 00:00: directed [place] nebulizer 00 in the Medical solution morning Branch and 2 mL in the evening. ipratropium Yes [id number] .5mg Inhale 2.5 [facility] 0.02 % 1-05 mL every 4 ity of nebulizer 00:00: (four) [place] solution 00 hours as Medical needed for Branch Wheezing or Shortness of Breath. albuterol Yes [id number] 2{puff} Inhale 2 [facility] 90 1-05 Puffs ity of mcg/actuati 00:00: every 6 [place] as on inhaler 00 (six) Medical hours as Branch needed for Wheezing or Shortness of Breath. albuterol Yes [id number] 2.5mg Inhale 3 [facility] 2.5 mg /3 1-05 mL every 2 ity of mL (0.083 00:00: (two) [place] %) 00 hours as Medical nebulizer needed for Bran ch solution Shortness of Breath or Wheezing. cloNIDine Yes [id number] .2mg Take 1 [facility] nivers 0.2 mg 1-05 tablet by ity of tablet 00:00: mouth 3 [place] 00 (three) Medical times Branch daily as needed (Uncontrol led Hypertensi on). Take 1 Tab if BP > 150/90 NIFEdipine Yes [id number] 30mg Take 1 [facility] nivers ER 30 mg 1-05 tablet by ity of tablet 00:00: mouth in [place] 00 the Medical morning. Branch levothyroxi Yes [id number] 150ug Take 1 [facility] ne 150 mcg 1-05 tablet by ity of tablet 00:00: mouth [place] 00 every Medical morning. Branch tamsulosin 0 Yes [id number] .4mg Take 1 [facility] 0.4 mg 24 1-05 9102 capsule by ity of hr capsule 00:00: mouth in [place] as 00 the Medical morning. Branch budesonide 0 Yes [id number] .5mg Inhale 2 [facility] 0.5 mg/2 mL 1-05 mL in the ity of nebulizer 00:00: morning [place] solution 00 and 2 mL Medical in the Branch evening. traZODone 0 Yes [id number] 50mg Take 1 [facility] nivers 50 mg 1-05 tablet by ity of tablet 00:00: mouth at [place] 00 bedtime. Medical Branch doxepin 25 0 Yes [id number] 25mg Take 1 [facility] mg capsule 1-05 capsule by ity of 00:00: mouth at [place] 00 bedtime. Medical Branch glipiZIDE Yes [id number] 2.5mg Take 1 [facility] nivers XL 2.5 [...] Rx, ~2 mths ago arformotero 2022-0 Yes [id number] 15ug Use 2 mL [facility] L 15 mcg/2 1-05 as ity of mL 00:00: directed [place] nebulizer 00 in the Medical solution morning Branch and 2 mL in the evening. ipratropium 0 Yes [id number] .5mg Inhale 2.5 [facility] 0.02 % 1-05 mL every 4 ity of nebulizer 00:00: (four) [place] solution 00 hours as Medical needed for Branch Wheezing or Shortness of Breath. albuterol 2022-0 Yes [id number] 2{puff} Inhale 2 [facility] 90 1-05 Puffs ity of mcg/actuati 00:00: every 6 [place] as on inhaler 00 (six) Medical hours as Branch needed for Wheezing or Shortness of Breath. albuterol 2022-0 Yes [id number] 2.5mg Inhale 3 [facility] 2.5 mg /3 1-05 mL every 2 ity of mL (0.083 00:00: (two) [place] %) 00 hours as Medical nebulizer needed for Bran ch solution Shortness of Breath or Wheezing. cloNIDine 0 Yes [id number] .2mg Take 1 [facility] nivers 0.2 mg 1-05 tablet by ity of tablet 00:00: mouth 3 [place] 00 (three) Medical times Branch daily as needed (Uncontrol led Hypertensi on). Take 1 Tab if BP > 150/90 NIFEdipine 0 Yes [id number] 30mg Take 1 [facility] nivers ER 30 mg 1-05 tablet by ity of tablet 00:00: mouth in [place] 00 the Medical morning. Branch levothyroxi Yes [id number] 150ug Take 1 [facility] ne 150 mcg 1-05 tablet by ity of tablet 00:00: mouth [place] 00 every Medical morning. Branch tamsulosin Yes [id number] .4mg Take 1 [facility] 0.4 mg 24 1-05 9102 capsule by ity of hr capsule 00:00: mouth in [place] as 00 the Medical morning. Branch budesonide Yes [id number] .5mg Inhale 2 [facility] 0.5 mg/2 mL 1-05 mL in the ity of nebulizer 00:00: morning [place] solution 00 and 2 mL Medical in the Branch evening. traZODone 0 Yes [id number] 50mg Take 1 [facility] nivers 50 mg 1-05 tablet by ity of tablet 00:00: mouth at [place] 00 bedtime. Medical Branch doxepin 25 2022-0 Yes [id number] 25mg Take 1 [facility] mg capsule 1-05 capsule by ity of 00:00: mouth at [place] 00 bedtime. Medical Branch glipiZIDE 2022-0 Yes [id number] 2.5mg Take 1 [facility] nivers XL 2.5 [...] Dr Rx, ~2 mths ago arformotero Yes [id number] 15ug Use 2 mL [facility] L 15 mcg/2 1-05 as ity of mL 00:00: directed [place] nebulizer 00 in the Medical solution morning Branch and 2 mL in the evening. ipratropium Yes [id number] .5mg Inhale 2.5 [facility] 0.02 % 1-05 mL every 4 ity of nebulizer 00:00: (four) [place] solution 00 hours as Medical needed for Branch Wheezing or Shortness of Breath. albuterol Yes [id number] 2{puff} Inhale 2 [facility] 90 1-05 Puffs ity of mcg/actuati 00:00: every 6 [place] as on inhaler 00 (six) Medical hours as Branch needed for Wheezing or Shortness of Breath. albuterol Yes [id number] 2.5mg Inhale 3 [facility] 2.5 mg /3 1-05 mL every 2 ity of mL (0.083 00:00: (two) [place] %) 00 hours as Medical nebulizer needed for Bran ch solution Shortness of Breath or Wheezing. cloNIDine Yes [id number] .2mg Take 1 [facility] nivers 0.2 mg 1-05 tablet by ity of tablet 00:00: mouth 3 [place] 00 (three) Medical times Branch daily as needed (Uncontrol led Hypertensi on). Take 1 Tab if BP > 150/90 NIFEdipine Yes [id number] 30mg Take 1 [facility] nivers ER 30 mg 1-05 tablet by ity of tablet 00:00: mouth in [place] 00 the Medical morning. Branch levothyroxi Yes [id number] 150ug Take 1 [facility] ne 150 mcg 1-05 tablet by ity of tablet 00:00: mouth [place] 00 every Medical morning. Branch tamsulosin Yes [id number] .4mg Take 1 [facility] 0.4 mg 24 1-05 9102 capsule by ity of hr capsule 00:00: mouth in [place] as 00 the Medical morning. Branch budesonide Yes [id number] .5mg Inhale 2 [facility] 0.5 mg/2 mL 1-05 mL in the ity of nebulizer 00:00: morning [place] solution 00 and 2 mL Medical in the Branch evening. traZODone Yes [id number] 50mg Take 1 [facility] nivers 50 mg 1-05 tablet by ity of tablet 00:00: mouth at [place] 00 bedtime. Medical Branch doxepin 25 Yes [id number] 25mg Take 1 [facility] mg capsule 1-05 capsule by ity of 00:00: mouth at [place] 00 bedtime. Medical Branch glipiZIDE Yes [id number] 2.5mg Take 1 [facility] nivers XL 2.5 [...] Dr Rx, ~2 mths ago arformotero Yes [id number] 15ug Use 2 mL [facility] L 15 mcg/2 1-05 as ity of mL 00:00: directed [place] nebulizer 00 in the Medical solution morning Branch and 2 mL in the evening. ipratropium Yes [id number] .5mg Inhale 2.5 [facility] 0.02 % 1-05 mL every 4 ity of nebulizer 00:00: (four) [place] solution 00 hours as Medical needed for Branch Wheezing or Shortness of Breath. albuterol Yes [id number] 2{puff} Inhale 2 [facility] 90 1-05 Puffs ity of mcg/actuati 00:00: every 6 [place] as on inhaler 00 (six) Medical hours as Branch needed for Wheezing or Shortness of Breath. albuterol Yes [id number] 2.5mg Inhale 3 [facility] 2.5 mg /3 1-05 mL every 2 ity of mL (0.083 00:00: (two) [place] %) 00 hours as Medical nebulizer needed for Bran ch solution Shortness of Breath or Wheezing. cloNIDine Yes [id number] .2mg Take 1 [facility] nivers 0.2 mg 1-05 tablet by ity of tablet 00:00: mouth 3 [place] 00 (three) Medical times Branch daily as needed (Uncontrol led Hypertensi on). Take 1 Tab if BP > 150/90 NIFEdipine 2022-0 Yes [id number] 30mg Take 1 [facility] nivers ER 30 mg 1-05 tablet by ity of tablet 00:00: mouth in [place] 00 the Medical morning. Branch levothyroxi 2022-0 Yes [id number] 150ug Take 1 [facility] ne 150 mcg 1-05 tablet by ity of tablet 00:00: mouth [place] 00 every Medical morning. Branch tamsulosin 0 Yes [id number] .4mg Take 1 [facility] 0.4 mg 24 1-05 9102 capsule by ity of hr capsule 00:00: mouth in [place] as 00 the Medical morning. Branch budesonide 2022- Yes [id number] .5mg Inhale 2 [facility] 0.5 mg/2 mL 1-05 mL in the ity of nebulizer 00:00: morning [place] solution 00 and 2 mL Medical in the Branch evening. traZODone 0 Yes [id number] 50mg Take 1 [facility] nivers 50 mg 1-05 tablet by ity of tablet 00:00: mouth at [place] [address] bedtime. Medical Branch doxepin 25 2022-0 Yes [id number] 25mg Take 1 [facility] mg capsule 1-05 capsule by ity of 00:00: mouth at [place] [address] bedtime. Medical Branch glipiZIDE 0 Yes [id number] 2.5mg Take 1 [facility] nivers XL 2.5 mg 1-05 tablet by ity o f 24 hr 00:00: mouth in [place] tablet 00 the Medical morning Branch and 1 tablet in the evening. bumetanide 0 Yes 1mg Take 1 [facility] rs 1 mg tablet 1-05 tablet by ity of 00:00: mouth [place] 00 every Medical morning Branch and evening. Indication s: reports kidney Dr Rx, ~2 mths ago arformotero 2022-0 Yes [id number] 15ug Use 2 mL [facility] L 15 mcg/2 1-05 as ity of mL 00:00: directed [place] nebulizer 00 in the Medical solution morning Branch and 2 mL in the evening. ipratropium 2022-0 Yes [id number] .5mg Inhale 2.5 [facility] 0.02 % 1-05 mL every 4 ity of nebulizer 00:00: (four) [place] solution 00 hours as Medical needed for Branch Wheezing or Shortness of Breath. albuterol 0 Yes [id number] 2{puff} Inhale 2 [facility] 90 1-05 Puffs ity of mcg/actuati 00:00: every 6 [place] as on inhaler 00 (six) Medical hours as Branch needed for Wheezing or Shortness of Breath. albuterol 0 Yes [id number] 2.5mg Inhale 3 [facility] 2.5 mg /3 1-05 mL every 2 ity of mL (0.083 00:00: (two) [place] %) 00 hours as Medical nebulizer needed for Bran ch solution Shortness of Breath or Wheezing. cloNIDine Yes [id number] .2mg Take 1 [facility] nivers 0.2 mg 1-05 tablet by ity of tablet 00:00: mouth 3 [place] 00 (three) Medical times Branch daily as needed (Uncontrol led Hypertensi on). Take 1 Tab if BP > 150/90 NIFEdipine 2022-0 Yes [id number] 30mg Take 1 [facility] nivers ER 30 mg 1-05 tablet by ity of tablet 00:00: mouth in [place] 00 the Medical morning. Branch levothyroxi Yes [id number] 150ug Take 1 [facility] ne 150 mcg 1-05 tablet by ity of tablet 00:00: mouth [place] 00 every Medical morning. Branch tamsulosin Yes [id number] .4mg Take 1 [facility] 0.4 mg 24 1-05 9102 capsule by ity of hr capsule 00:00: mouth in [place] as 00 the Medical morning. Branch budesonide Yes [id number] .5mg Inhale 2 [facility] 0.5 mg/2 mL 1-05 mL in the ity of nebulizer 00:00: morning [place] solution 00 and 2 mL Medical in the Branch evening. traZODone 2022-0 Yes [id number] 50mg Take 1 [facility] nivers 50 mg 1-05 tablet by ity of tablet 00:00: mouth at [place] 00 bedtime. Medical Branch doxepin 25 2022-0 Yes [id number] 25mg Take 1 [facility] mg capsule 1-05 capsule by ity of 00:00: mouth at [place] 00 bedtime. Medical Branch glipiZIDE 2022-0 Yes [id number] 2.5mg Take 1 [facility] nivers XL 2.5 [...] Dr Rx, ~2 mths ago arformotero Yes [id number] 15ug Use 2 mL [facility] L 15 mcg/2 1-05 as ity of mL 00:00: directed [place] nebulizer 00 in the Medical solution morning Branch and 2 mL in the evening. ipratropium Yes [id number] .5mg Inhale 2.5 [facility] 0.02 % 1-05 mL every 4 ity of nebulizer 00:00: (four) [place] solution 00 hours as Medical needed for Branch Wheezing or Shortness of Breath. albuterol Yes [id number] 2{puff} Inhale 2 [facility] 90 1-05 Puffs ity of mcg/actuati 00:00: every 6 [place] as on inhaler 00 (six) Medical hours as Branch needed for Wheezing or Shortness of Breath. albuterol Yes [id number] 2.5mg Inhale 3 [facility] 2.5 mg /3 1-05 mL every 2 ity of mL (0.083 00:00: (two) [place] %) 00 hours as Medical nebulizer needed for Bran ch solution Shortness of Breath or Wheezing. cloNIDine Yes [id number] .2mg Take 1 [facility] nivers 0.2 mg 1-05 tablet by ity of tablet 00:00: mouth 3 [place] 00 (three) Medical times Branch daily as needed (Uncontrol led Hypertensi on). Take 1 Tab if BP > 150/90 NIFEdipine Yes [id number] 30mg Take 1 [facility] nivers ER 30 mg 1-05 tablet by ity of tablet 00:00: mouth in [place] 00 the Medical morning. Branch levothyroxi Yes [id number] 150ug Take 1 [facility] ne 150 mcg 1-05 tablet by ity of tablet 00:00: mouth [place] 00 every Medical morning. Branch tamsulosin Yes [id number] .4mg Take 1 [facility] 0.4 mg 24 1-05 9102 capsule by ity of hr capsule 00:00: mouth in [place] as 00 the Medical morning. Branch budesonide Yes [id number] .5mg Inhale 2 [facility] 0.5 mg/2 mL 1-05 mL in the ity of nebulizer 00:00: morning [place] solution 00 and 2 mL Medical in the Branch evening. traZODone 0 Yes [id number] 50mg Take 1 [facility] nivers 50 mg 1-05 tablet by ity of tablet 00:00: mouth at [place] 00 bedtime. Medical Branch doxepin 25 0 Yes [id number] 25mg Take 1 [facility] mg capsule 1-05 capsule by ity of 00:00: mouth at [place] 00 bedtime. Medical Branch glipiZIDE Yes [id number] 2.5mg Take 1 [facility] nivers XL 2.5 [...] Rx, ~2 mths ago arformotero 0 Yes [id number] 15ug Use 2 mL [facility] L 15 mcg/2 1-05 as ity of mL 00:00: directed [place] nebulizer 00 in the Medical solution morning Branch and 2 mL in the evening. ipratropium 0 Yes [id number] .5mg Inhale 2.5 [facility] 0.02 % 1-05 mL every 4 ity of nebulizer 00:00: (four) [place] solution 00 hours as Medical needed for Branch Wheezing or Shortness of Breath. albuterol 2022-0 Yes [id number] 2{puff} Inhale 2 [facility] 90 1-05 Puffs ity of mcg/actuati 00:00: every 6 [place] as on inhaler 00 (six) Medical hours as Branch needed for Wheezing or Shortness of Breath. albuterol 2022-0 Yes [id number] 2.5mg Inhale 3 [facility] 2.5 mg /3 1-05 mL every 2 ity of mL (0.083 00:00: (two) [place] %) 00 hours as Medical nebulizer needed for Bran ch solution Shortness of Breath or Wheezing. cloNIDine Yes [id number] .2mg Take 1 [facility] nivers 0.2 mg 1-05 tablet by ity of tablet 00:00: mouth 3 [place] 00 (three) Medical times Branch daily as needed (Uncontrol led Hypertensi on). Take 1 Tab if BP > 150/90 NIFEdipine Yes [id number] 30mg Take 1 [facility] nivers ER 30 mg 1-05 tablet by ity of tablet 00:00: mouth in [place] 00 the Medical morning. Branch levothyroxi Yes [id number] 150ug Take 1 [facility] ne 150 mcg 1-05 tablet by ity of tablet 00:00: mouth [place] 00 every Medical morning. Branch tamsulosin Yes [id number] .4mg Take 1 [facility] 0.4 mg 24 1-05 9102 capsule by ity of hr capsule 00:00: mouth in [place] as 00 the Medical morning. Branch budesonide Yes [id number] .5mg Inhale 2 [facility] 0.5 mg/2 mL 1-05 mL in the ity of nebulizer 00:00: morning [place] solution 00 and 2 mL Medical in the Branch evening. traZODone Yes [id number] 50mg Take 1 [facility] nivers 50 mg 1-05 tablet by ity of tablet 00:00: mouth at [place] 00 bedtime. Medical Branch doxepin 25 Yes [id number] 25mg Take 1 [facility] mg capsule 1-05 capsule by ity of 00:00: mouth at [place] 00 bedtime. Medical Branch glipiZIDE Yes [id number] 2.5mg Take 1 [facility] nivers XL 2.5 [...] Dr Rx, ~2 mths ago arformotero Yes [id number] 15ug Use 2 mL [facility] L 15 mcg/2 1-05 as ity of mL 00:00: directed [place] nebulizer 00 in the Medical solution morning Branch and 2 mL in the evening. ipratropium Yes [id number] .5mg Inhale 2.5 [facility] 0.02 % 1-05 mL every 4 ity of nebulizer 00:00: (four) [place] solution 00 hours as Medical needed for Branch Wheezing or Shortness of Breath. albuterol Yes [id number] 2{puff} Inhale 2 [facility] 90 1-05 Puffs ity of mcg/actuati 00:00: every 6 [place] as on inhaler 00 (six) Medical hours as Branch needed for Wheezing or Shortness of Breath. albuterol Yes [id number] 2.5mg Inhale 3 [facility] 2.5 mg /3 1-05 mL every 2 ity of mL (0.083 00:00: (two) [place] %) 00 hours as Medical nebulizer needed for Bran ch solution Shortness of Breath or Wheezing. cloNIDine Yes [id number] .2mg Take 1 [facility] nivers 0.2 mg 1-05 tablet by ity of tablet 00:00: mouth 3 [place] 00 (three) Medical times Branch daily as needed (Uncontrol led Hypertensi on). Take 1 Tab if BP > 150/90 NIFEdipine Yes [id number] 30mg Take 1 [facility] nivers ER 30 mg 1-05 tablet by ity of tablet 00:00: mouth in [place] 00 the Medical morning. Branch levothyroxi Yes [id number] 150ug Take 1 [facility] ne 150 mcg 1-05 tablet by ity of tablet 00:00: mouth [place] 00 every Medical morning. Branch tamsulosin Yes [id number] .4mg Take 1 [facility] 0.4 mg 24 1-05 9102 capsule by ity of hr capsule 00:00: mouth in [place] as 00 the Medical morning. Branch budesonide Yes [id number] .5mg Inhale 2 [facility] 0.5 mg/2 mL 1-05 mL in the ity of nebulizer 00:00: morning [place] solution 00 and 2 mL Medical in the Branch evening. traZODone Yes [id number] 50mg Take 1 [facility] nivers 50 mg 1-05 tablet by ity of tablet 00:00: mouth at [place] 00 bedtime. Medical Branch doxepin 25 Yes [id number] 25mg Take 1 [facility] mg capsule 1-05 capsule by ity of 00:00: mouth at [place] 00 bedtime. Medical Branch glipiZIDE Yes [id number] 2.5mg Take 1 [facility] nivers XL 2.5 [...] Dr Rx, ~2 mths ago arformotero Yes [id number] 15ug Use 2 mL [facility] L 15 mcg/2 1-05 as ity of mL 00:00: directed [place] nebulizer 00 in the Medical solution morning Branch and 2 mL in the evening. ipratropium Yes [id number] .5mg Inhale 2.5 [facility] 0.02 % 1-05 mL every 4 ity of nebulizer 00:00: (four) [place] solution 00 hours as Medical needed for Branch Wheezing or Shortness of Breath. albuterol Yes [id number] 2{puff} Inhale 2 [facility] 90 1-05 Puffs ity of mcg/actuati 00:00: every 6 [place] as on inhaler 00 (six) Medical hours as Branch needed for Wheezing or Shortness of Breath. albuterol Yes [id number] 2.5mg Inhale 3 [facility] 2.5 mg /3 1-05 mL every 2 ity of mL (0.083 00:00: (two) [place] %) 00 hours as Medical nebulizer needed for Bran ch solution Shortness of Breath or Wheezing. cloNIDine Yes [id number] .2mg Take 1 [facility] nivers 0.2 mg 1-05 tablet by ity of tablet 00:00: mouth 3 [place] 00 (three) Medical times Branch daily as needed (Uncontrol led Hypertensi on). Take 1 Tab if BP > 150/90 NIFEdipine Yes [id number] 30mg Take 1 [facility] nivers ER 30 mg 1-05 tablet by ity of tablet 00:00: mouth in [place] 00 the Medical morning. Branch levothyroxi Yes [id number] 150ug Take 1 [facility] ne 150 mcg 1-05 tablet by ity of tablet 00:00: mouth [place] 00 every Medical morning. Branch tamsulosin Yes [id number] .4mg Take 1 [facility] 0.4 mg 24 1-05 9102 capsule by ity of hr capsule 00:00: mouth in [place] as 00 the Medical morning. Branch budesonide Yes [id number] .5mg Inhale 2 [facility] 0.5 mg/2 mL 1-05 mL in the ity of nebulizer 00:00: morning [place] solution 00 and 2 mL Medical in the Branch evening. traZODone Yes [id number] 50mg Take 1 [facility] nivers 50 mg 1-05 tablet by [facility] of tablet 00:00: mouth at [place] 00 bedtime. Medical Branch doxepin 25 Yes [id number] 25mg Take 1 [facility] mg capsule 1-05 capsule by [facility] of 00:00: mouth at [place] 00 bedtime. Medical Branch glipiZIDE Yes [id number] 2.5mg Take 1 [facility] n[facility] XL 2.5 mg 1-05 tablet by ity o f 24 hr 00:00: mouth in [place] tablet 00 the Medical morning Branch and 1 tablet in the evening. bumetanide Yes 1mg Take 1 [facility] rs 1 mg tablet 1-05 tablet by [facility] of 00:00: mouth [place] 00 every Medical morning Branch and evening. Indication s: reports kidney Dr Rx, ~2 mths ago arformotero Yes [id number] 15ug Use 2 mL [facility] L 15 mcg/2 1-05 as ity of mL 00:00: directed [place] nebulizer 00 in the Medical solution morning Branch and 2 mL in the evening. ipratropium 0 Yes [id number] .5mg Inhale 2.5 [facility] 0.02 % 1-05 mL every 4 ity of nebulizer 00:00: (four) [place] solution 00 hours as Medical needed for Branch Wheezing or Shortness of Breath. albuterol Yes [id number] 2{puff} Inhale 2 [facility] 90 1-05 Puffs ity of mcg/actuati 00:00: every 6 [place] as on inhaler 00 (six) Medical hours as Branch needed for Wheezing or Shortness of Breath. albuterol Yes [id number] 2.5mg Inhale 3 [facility] 2.5 mg /3 1-05 mL every 2 ity of mL (0.083 00:00: (two) [place] %) 00 hours as Medical nebulizer needed for Bran ch solution Shortness of Breath or Wheezing. cloNIDine Yes [id number] .2mg Take 1 [facility] nivers 0.2 mg 1-05 tablet by ity of tablet 00:00: mouth 3 [place] 00 (three) Medical times Branch daily as needed (Uncontrol led Hypertensi on). Take 1 Tab if BP > 150/90 NIFEdipine Yes [id number] 30mg Take 1 [facility] n[facility] ER 30 mg 1-05 tablet by ity of tablet 00:00: mouth in [place] 00 the Medical morning. Branch levothyroxi Yes [id number] 150ug Take 1 [facility] ne 150 mcg 1-05 tablet by ity of tablet 00:00: mouth [place] 00 every Medical morning. Branch tamsulosin Yes [id number] .4mg Take 1 [facility] 0.4 mg 24 1-05 9102 capsule by ity of hr capsule 00:00: mouth in [place] as 00 the Medical morning. Branch budesonide Yes [id number] .5mg Inhale 2 [facility] 0.5 mg/2 mL 1-05 mL in the ity of nebulizer 00:00: morning [place] solution 00 and 2 mL Medical in the Branch evening. traZODone 0 Yes [id number] 50mg Take 1 [facility] n[facility] 50 mg 1-05 tablet by [facility] of tablet 00:00: mouth at [place] 00 bedtime. Medical Branch doxepin 25 0 Yes [id number] 25mg Take 1 [facility] mg capsule 1-05 capsule by [facility] of 00:00: mouth at [place] 00 bedtime. Medical Branch glipiZIDE 0 Yes [id number] 2.5mg Take 1 [facility] nivers XL 2.5 [...] Dr Rx, ~2 mths ago arformotero Yes [id number] 15ug Use 2 mL [facility] L 15 mcg/2 1-05 as ity of mL 00:00: directed [place] nebulizer 00 in the Medical solution morning Branch and 2 mL in the evening. ipratropium Yes [id number] .5mg Inhale 2.5 [facility] 0.02 % 1-05 mL every 4 ity of nebulizer 00:00: (four) [place] solution 00 hours as Medical needed for Branch Wheezing or Shortness of Breath. albuterol Yes [id number] 2{puff} Inhale 2 [facility] 90 1-05 Puffs ity of mcg/actuati 00:00: every 6 [place] as on inhaler 00 (six) Medical hours as Branch needed for Wheezing or Shortness of Breath. albuterol Yes [id number] 2.5mg Inhale 3 [facility] 2.5 mg /3 1-05 mL every 2 it[facility] of mL (0.083 00:00: (two) [place] %) 00 hours as Medical nebulizer needed for Bran ch solution Shortness of Breath or Wheezing. cloNIDine Yes [id number] .2mg Take 1 [facility] n[facility] 0.2 mg 1-05 tablet by it[facility] of tablet 00:00: mouth 3 [place] 00 (three) Medical times Branch daily as needed (Uncontrol led Hypertensi on). Take 1 Tab if BP > 150/90 NIFEdipine Yes [id number] 30mg Take 1 [facility] ER 30 mg 1-05 tablet by [facility] of tablet 00:00: mouth in [place] 00 the Medical morning. Branch levothyroxi Yes [id number] 150ug Take 1 [facility] ne 150 mcg 1-05 tablet by [facility] of tablet 00:00: mouth [place] 00 every Medical morning. Branch tamsulosin Yes [id number] .4mg Take 1 [facility] 0.4 mg 24 1-05 9102 capsule by [facility] of hr capsule 00:00: mouth in [place] as 00 the Medical morning. Branch budesonide Yes [id number] .5mg Inhale 2 [facility] 0.5 mg/2 mL 1-05 mL in the ity of nebulizer 00:00: morning [place] solution 00 and 2 mL Medical in the Branch evening. traZODone Yes [id number] 50mg Take 1 [facility] 50 mg 1-05 tablet by [facility] of tablet 00:00: mouth at [place] 00 bedtime. Medical Branch doxepin 25 Yes [id number] 25mg Take 1 [facility] mg capsule 1-05 capsule by [facility] of 00:00: mouth at [place] 00 bedtime. Medical Branch glipiZIDE Yes [id number] 2.5mg Take 1 [facility] nivers XL 2.5 [...] Dr Rx, ~2 mths ago arformotero Yes [id number] 15ug Use 2 mL [facility] L 15 mcg/2 1-05 as ity of mL 00:00: directed [place] nebulizer 00 in the Medical solution morning Branch and 2 mL in the evening. ipratropium Yes [id number] .5mg Inhale 2.5 [facility] 0.02 % 1-05 mL every 4 ity of nebulizer 00:00: (four) [place] solution 00 hours as Medical needed for Branch Wheezing or Shortness of Breath. albuterol Yes [id number] 2{puff} Inhale 2 [facility] 90 1-05 Puffs ity of mcg/actuati 00:00: every 6 [place] as on inhaler 00 (six) Medical hours as Branch needed for Wheezing or Shortness of Breath. cloNIDine Yes [id number] .2mg Take 1 [facility] 0.2 mg 1-05 tablet by it[facility] of tablet 00:00: mouth 3 [place] 00 (three) Medical times Branch daily as needed (Uncontrol led Hypertensi on). Take 1 Tab if BP > 150/90 NIFEdipine Yes [id number] 30mg Take 1 [facility] n[facility] ER 30 mg 1-05 tablet by [facility] of tablet 00:00: mouth in [place] 00 the Medical morning. Branch levothyroxi Yes [id number] 150ug Take 1 [facility] ne 150 mcg 1-05 tablet by [facility] of tablet 00:00: mouth [place] 00 every Medical morning. Branch tamsulosin Yes [id number] .4mg Take 1 [facility] 0.4 mg 24 1-05 9102 capsule by [facility] of hr capsule 00:00: mouth in [place] as 00 the Medical morning. Branch budesonide Yes [id number] .5mg Inhale 2 [facility] 0.5 mg/2 mL 1-05 mL in the ity of nebulizer 00:00: morning [place] solution 00 and 2 mL Medical in the Branch evening. traZODone Yes [id number] 50mg Take 1 [facility] 50 mg 1-05 tablet by [facility] of tablet 00:00: mouth at [place] 00 bedtime. Medical Branch doxepin 25 Yes [id number] 25mg Take 1 [facility] mg capsule 1-05 capsule by [facility] of 00:00: mouth at [place] 00 bedtime. Medical Branch glipiZIDE Yes [id number] 2.5mg Take 1 [facility] n[facility] XL 2.5 [...] Rx, ~2 mths ago arformotero 0 Yes [id number] 15ug Use 2 mL [facility] L 15 mcg/2 1-05 as ity of mL 00:00: directed [place] nebulizer 00 in the Medical solution morning Branch and 2 mL in the evening. ipratropium 0 Yes [id number] .5mg Inhale 2.5 [facility] 0.02 % 1-05 mL every 4 ity of nebulizer 00:00: (four) [place] solution 00 hours as Medical needed for Branch Wheezing or Shortness of Breath. albuterol 0 Yes [id number] 2{puff} Inhale 2 [facility] 90 1-05 Puffs ity of mcg/actuati 00:00: every 6 [place] as on inhaler 00 (six) Medical hours as Branch needed for Wheezing or Shortness of Breath. cloNIDine 0 Yes [id number] .2mg Take 1 [facility] n[facility] 0.2 mg 1-05 tablet by it[facility] of tablet 00:00: mouth 3 [place] 00 (three) Medical times Branch daily as needed (Uncontrol led Hypertensi on). Take 1 Tab if BP > 150/90 NIFEdipine 2022-0 Yes [id number] 30mg Take 1 [facility] n[facility] ER 30 mg 1-05 tablet by [facility] of tablet 00:00: mouth in [place] 00 the Medical morning. Branch levothyroxi 0 Yes [id number] 150ug Take 1 [facility] ne 150 mcg 1-05 tablet by [facility] of tablet 00:00: mouth [place] 00 every Medical morning. Branch tamsulosin 0 Yes [id number] .4mg Take 1 [facility] 0.4 mg 24 1-05 9102 capsule by [facility] of hr capsule 00:00: mouth in [place] as 00 the Medical morning. Branch budesonide 0 Yes [id number] .5mg Inhale 2 [facility] 0.5 mg/2 mL 1-05 mL in the ity of nebulizer 00:00: morning [place] solution 00 and 2 mL Medical in the Branch evening. traZODone 0 Yes [id number] 50mg Take 1 [facility] 50 mg 1-05 tablet by [facility] of tablet 00:00: mouth at [place] 00 bedtime. Medical Branch glipiZIDE 2022-0 Yes [id number] 2.5mg Take 1 [facility] XL 2.5 mg 1-05 tablet by ity o f 24 hr 00:00: mouth in [place] tablet 00 the Medical morning Branch and 1 tablet in the evening. arformotero 2022-0 Yes [id number] 15ug Use 2 mL [facility] L 15 mcg/2 1-05 as ity of mL 00:00: directed [place] nebulizer 00 in the Medical solution morning Branch and 2 mL in the evening. ipratropium 2022-0 Yes [id number] .5mg Inhale 2.5 [facility] 0.02 % 1-05 mL every 4 ity of nebulizer 00:00: (four) [place] solution 00 hours as Medical needed for Branch Wheezing or Shortness of Breath. albuterol 0 Yes [id number] 2{puff} Inhale 2 [facility] 90 1-05 Puffs ity of mcg/actuati 00:00: every 6 [place] as on inhaler 00 (six) Medical hours as Branch needed for Wheezing or Shortness of Breath. cloNIDine 2022-0 Yes [id number] .2mg Take 1 [facility] n[facility] 0.2 mg 1-05 tablet by ity of tablet 00:00: mouth 3 [place] 00 (three) Medical times Branch daily as needed (Uncontrol led Hypertensi on). Take 1 Tab if BP > 150/90 levothyroxi 2022-0 Yes [id number] 150ug Take 1 [facility] ne 150 mcg 1-05 tablet by ity of tablet 00:00: mouth [place] 00 every Medical morning. Branch tamsulosin 0 Yes [id number] .4mg Take 1 [facility] 0.4 mg 24 1-05 9102 capsule by ity of hr capsule 00:00: mouth in [place] as 00 the Medical morning. Branch budesonide 0 Yes [id number] .5mg Inhale 2 [facility] 0.5 mg/2 mL 1-05 mL in the ity of nebulizer 00:00: morning [place] solution 00 and 2 mL Medical in the Branch evening. traZODone 0 Yes [id number] 50mg Take 1 [facility] nivers 50 mg 1-05 tablet by it[facility] of tablet 00:00: mouth at [place] 00 bedtime. Medical Branch glipiZIDE 0 Yes [id number] 2.5mg Take 1 [facility] n[facility] XL 2.5 mg 1-05 tablet by ity o f 24 hr 00:00: mouth in [place] tablet 00 the Medical morning Branch and 1 tablet in the evening. arformotero 2022-0 Yes [id number] 15ug Use 2 mL [facility] L 15 mcg/2 1-05 as ity of mL 00:00: directed [place] nebulizer 00 in the Medical solution morning Branch and 2 mL in the evening. ipratropium 2022-0 Yes [id number] .5mg Inhale 2.5 [facility] 0.02 % 1-05 mL every 4 ity of nebulizer 00:00: (four) [place] solution 00 hours as Medical needed for Branch Wheezing or Shortness of Breath. albuterol Yes [id number] 2{puff} Inhale 2 [facility] 90 1-05 Puffs ity of mcg/actuati 00:00: every 6 [place] as on inhaler 00 (six) Medical hours as Branch needed for Wheezing or Shortness of Breath. cloNIDine 0 Yes [id number] .2mg Take 1 [facility] n[facility] 0.2 mg 1-05 tablet by it[facility] of tablet 00:00: mouth 3 [place] 00 (three) Medical times Branch daily as needed (Uncontrol led Hypertensi on). Take 1 Tab if BP > 150/90 levothyroxi Yes [id number] 150ug Take 1 [facility] ne 150 mcg 1-05 tablet by ity of tablet 00:00: mouth [place] 00 every Medical morning. Branch tamsulosin Yes [id number] .4mg Take 1 [facility] 0.4 mg 24 1-05 9102 capsule by ity of hr capsule 00:00: mouth in [place] as 00 the Medical morning. Branch budesonide Yes [id number] .5mg Inhale 2 [facility] 0.5 mg/2 mL 1-05 mL in the ity of nebulizer 00:00: morning [place] solution 00 and 2 mL Medical in the Branch evening. traZODone Yes [id number] 50mg Take 1 [facility] n[facility] 50 mg 1-05 tablet by [facility] of tablet 00:00: mouth at [place] 00 bedtime. Medical Branch glipiZIDE 0 Yes [id number] 2.5mg Take 1 [facility] n[facility] XL 2.5 mg 1-05 tablet by ity o f 24 hr 00:00: mouth in [place] tablet 00 the Medical morning Branch and 1 tablet in the evening. arformotero Yes [id number] 15ug Use 2 mL [facility] L 15 mcg/2 1-05 as ity of mL 00:00: directed [place] nebulizer 00 in the Medical solution morning Branch and 2 mL in the evening. ipratropium 0 Yes [id number] .5mg Inhale 2.5 [facility] 0.02 % 1-05 mL every 4 ity of nebulizer 00:00: (four) [place] solution 00 hours as Medical needed for Branch Wheezing or Shortness of Breath. albuterol Yes [id number] 2{puff} Inhale 2 [facility] 90 1-05 Puffs ity of mcg/actuati 00:00: every 6 [place] as on inhaler 00 (six) Medical hours as Branch needed for Wheezing or Shortness of Breath. cloNIDine Yes [id number] .2mg Take 1 [facility] nivers 0.2 mg 1-05 tablet by ity of tablet 00:00: mouth 3 [place] 00 (three) Medical times Branch daily as needed (Uncontrol led Hypertensi on). Take 1 Tab if BP > 150/90 levothyroxi 0 Yes [id number] 150ug Take 1 [facility] ne 150 mcg 1-05 tablet by ity of tablet 00:00: mouth [place] 00 every Medical morning. Branch tamsulosin Yes [id number] .4mg Take 1 [facility] 0.4 mg 24 1-05 9102 capsule by ity of hr capsule 00:00: mouth in [place] as 00 the Medical morning. Branch budesonide Yes [id number] .5mg Inhale 2 [facility] 0.5 mg/2 mL 1-05 mL in the ity of nebulizer 00:00: morning [place] solution 00 and 2 mL Medical in the Branch evening. traZODone Yes [id number] 50mg Take 1 [facility] nivers 50 mg 1-05 tablet by ity of tablet 00:00: mouth at [place] 00 bedtime. Medical Branch glipiZIDE Yes [id number] 2.5mg Take 1 [facility] n[facility] XL 2.5 mg 1-05 tablet by ity o f 24 hr 00:00: mouth in [place] tablet 00 the Medical morning Branch and 1 tablet in the evening. arformotero Yes [id number] 15ug Use 2 mL [facility] L 15 mcg/2 1-05 as ity of mL 00:00: directed [place] nebulizer 00 in the Medical solution morning Branch and 2 mL in the evening. ipratropium 0 Yes [id number] .5mg Inhale 2.5 [facility] 0.02 % 1-05 mL every 4 ity of nebulizer 00:00: (four) [place] solution 00 hours as Medical needed for Branch Wheezing or Shortness of Breath. albuterol Yes [id number] 2{puff} Inhale 2 [facility] 90 1-05 Puffs ity of mcg/actuati 00:00: every 6 [place] as on inhaler 00 (six) Medical hours as Branch needed for Wheezing or Shortness of Breath. cloNIDine 2022-0 Yes [id number] .2mg Take 1 [facility] nivers 0.2 mg [...] every Medical morning. Branch levothyroxi 0 Yes [id number] 150ug Take 1 [facility] ne 150 mcg 1-05 tablet by ity of tablet 00:00: mouth [place] 00 every Medical morning. Branch tamsulosin 0 Yes [id number] .4mg Take 1 [facility] 0.4 mg 24 1-05 9102 capsule by ity of hr capsule 00:00: mouth in [place] as 00 the Medical morning. Branch budesonide 0 Yes [id number] .5mg Inhale 2 [facility] 0.5 mg/2 mL 1-05 mL in the ity of nebulizer 00:00: morning [place] solution 00 and 2 mL Medical in the Branch evening. traZODone 0 Yes [id number] 50mg Take 1 [facility] nivers 50 mg 1-05 tablet by [facility] of tablet 00:00: mouth at [place] 00 bedtime. Medical Branch glipiZIDE 2022-0 Yes [id number] 2.5mg Take 1 [facility] n[facility] XL 2.5 mg 1-05 tablet by ity o f 24 hr 00:00: mouth in [place] tablet 00 the Medical morning Branch and 1 tablet in the evening. arformotero 2022-0 Yes [id number] 15ug Use 2 mL [facility] L 15 mcg/2 1-05 as ity of mL 00:00: directed [place] nebulizer 00 in the Medical solution morning Branch and 2 mL in the evening. ipratropium 2022-0 Yes [id number] .5mg Inhale 2.5 [facility] 0.02 % 1-05 mL every 4 ity of nebulizer 00:00: (four) [place] solution 00 hours as Medical needed for Branch Wheezing or Shortness of Breath. albuterol 0 Yes [id number] 2{puff} Inhale 2 [facility] 90 1-05 Puffs ity of mcg/actuati 00:00: every 6 [place] as on inhaler 00 (six) Medical hours as Branch needed for Wheezing or Shortness of Breath. cloNIDine 0 Yes [id number] .2mg Take 1 [facility] nivers 0.2 mg 1-05 tablet by ity of tablet 00:00: mouth 3 [place] 00 (three) Medical times Branch daily as needed (Uncontrol led Hypertensi on). Take 1 Tab if BP > 150/90 NIFEdipine 0 Yes 30mg Take 1 [facility] rs ER 30 mg 1-05 tablet by [facility] of tablet 00:00: mouth [place] 00 every Medical morning. Branch levothyroxi Yes [id number] 150ug Take 1 [facility] ne 150 mcg 1-05 tablet by ity of tablet 00:00: mouth [place] 00 every Medical morning. Branch tamsulosin Yes [id number] .4mg Take 1 [facility] 0.4 mg 24 1-05 9102 capsule by ity of hr capsule 00:00: mouth in [place] as 00 the Medical morning. Branch budesonide Yes [id number] .5mg Inhale 2 [facility] 0.5 mg/2 mL 1-05 mL in the ity of nebulizer 00:00: morning [place] solution 00 and 2 mL Medical in the Branch evening. traZODone 0 Yes [id number] 50mg Take 1 [facility] nivers 50 mg 1-05 tablet by ity of tablet 00:00: mouth at [place] 00 bedtime. Medical Branch glipiZIDE 0 Yes [id number] 2.5mg Take 1 [facility] n[facility] XL 2.5 mg 1-05 tablet by ity o f 24 hr 00:00: mouth in [place] tablet 00 the Medical morning Branch and 1 tablet in the evening. arformotero 0 Yes [id number] 15ug Use 2 mL [facility] L 15 mcg/2 1-05 as ity of mL 00:00: directed [place] nebulizer 00 in the Medical solution morning Branch and 2 mL in the evening. ipratropium 0 Yes [id number] .5mg Inhale 2.5 [facility] 0.02 % 1-05 mL every 4 ity of nebulizer 00:00: (four) [place] solution 00 hours as Medical needed for Branch Wheezing or Shortness of Breath. albuterol Yes [id number] 2{puff} Inhale 2 [facility] 90 1-05 Puffs ity of mcg/actuati 00:00: every 6 [place] as on inhaler 00 (six) Medical hours as Branch needed for Wheezing or Shortness of Breath. cloNIDine Yes [id number] .2mg Take 1 [facility] nivers 0.2 mg 1-05 tablet by ity of tablet 00:00: mouth 3 [place] 00 (three) Medical times Branch daily as needed (Uncontrol led Hypertensi on). Take 1 Tab if BP > 150/90 NIFEdipine 0 Yes 30mg Take 1 [facility] rs ER 30 mg 1-05 tablet by ity of tablet 00:00: mouth [place] 00 every Medical morning. Branch levothyroxi Yes [id number] 150ug Take 1 [facility] ne 150 mcg 1-05 tablet by ity of tablet 00:00: mouth [place] 00 every Medical morning. Branch tamsulosin Yes [id number] .4mg Take 1 [facility] 0.4 mg 24 1-05 9102 capsule by ity of hr capsule 00:00: mouth in [place] as 00 the Medical morning. Branch budesonide Yes [id number] .5mg Inhale 2 [facility] 0.5 mg/2 mL 1-05 mL in the ity of nebulizer 00:00: morning [place] solution 00 and 2 mL Medical in the Branch evening. traZODone 0 Yes [id number] 50mg Take 1 [facility] nivers 50 mg 1-05 tablet by ity of tablet 00:00: mouth at [place] 00 bedtime. Medical Branch glipiZIDE Yes [id number] 2.5mg Take 1 [facility] n[facility] XL 2.5 mg 1-05 tablet by ity o f 24 hr 00:00: mouth in [place] tablet 00 the Medical morning Branch and 1 tablet in the evening. arformotero 0 Yes [id number] 15ug Use 2 mL [facility] L 15 mcg/2 1-05 as ity of mL 00:00: directed [place] nebulizer 00 in the Medical solution morning Branch and 2 mL in the evening. ipratropium 2023-0 Yes [id number] .5mg Inhale 2.5 [facility] 0.02 % 1-05 mL every 4 ity of nebulizer 00:00: (four) [place] solution 00 hours as Medical needed for Branch Wheezing or Shortness of Breath. albuterol Yes [id number] 2{puff} Inhale 2 [facility] 90 1-05 Puffs ity of mcg/actuati 00:00: every 6 [place] as on inhaler 00 (six) Medical hours as Branch needed for Wheezing or Shortness of Breath. cloNIDine Yes [id number] .2mg Take 1 [facility] nivers 0.2 mg 1-05 tablet by ity of tablet 00:00: mouth 3 [place] 00 (three) Medical times Branch daily as needed (Uncontrol led Hypertensi on). Take 1 Tab if BP > 150/90 NIFEdipine 0 Yes 30mg Take 1 [facility] rs ER 30 mg 1-05 tablet by [facility]y of tablet 00:00: mouth [place] 00 every Medical morning. Branch levothyroxi Yes [id number] 150ug Take 1 [facility] ne 150 mcg 1-05 tablet by ity of tablet 00:00: mouth [place] 00 every Medical morning. Branch tamsulosin Yes [id number] .4mg Take 1 [facility] 0.4 mg 24 1-05 9102 capsule by ity of hr capsule 00:00: mouth in [place] as 00 the Medical morning. Branch budesonide Yes [id number] .5mg Inhale 2 [facility] 0.5 mg/2 mL 1-05 mL in the ity of nebulizer 00:00: morning [place] solution 00 and 2 mL Medical in the Branch evening. traZODone 0 Yes [id number] 50mg Take 1 [facility] nivers 50 mg 1-05 tablet by [facility] of tablet 00:00: mouth at [place] 00 bedtime. Medical Branch glipiZIDE 0 Yes [id number] 2.5mg Take 1 [facility] n[facility] XL 2.5 mg 1-05 tablet by ity o f 24 hr 00:00: mouth in [place] tablet 00 the Medical morning Branch and 1 tablet in the evening. arformotero 0 Yes [id number] 15ug Use 2 mL [facility] L 15 mcg/2 1-05 as ity of mL 00:00: directed [place] nebulizer 00 in the Medical solution morning Branch and 2 mL in the evening. ipratropium 2022-0 Yes [id number] .5mg Inhale 2.5 [facility] 0.02 % 1-05 mL every 4 ity of nebulizer 00:00: (four) [place] solution 00 hours as Medical needed for Branch Wheezing or Shortness of Breath. albuterol 2022-0 Yes [id number] 2{puff} Inhale 2 [facility] 90 1-05 Puffs ity of mcg/actuati 00:00: every 6 [place] as on inhaler 00 (six) Medical hours as Branch needed for Wheezing or Shortness of Breath. cloNIDine 2022-0 Yes [id number] .2mg Take 1 [facility] nivers 0.2 mg [...] every Medical morning. Branch levothyroxi 0 Yes [id number] 150ug Take 1 [facility] ne 150 mcg 1-05 tablet by ity of tablet 00:00: mouth [place] 00 every Medical morning. Branch tamsulosin 0 Yes [id number] .4mg Take 1 [facility] 0.4 mg 24 1-05 9102 capsule by ity of hr capsule 00:00: mouth in [place] as 00 the Medical morning. Branch budesonide 2022-0 Yes [id number] .5mg Inhale 2 [facility] 0.5 mg/2 mL 1-05 mL in the ity of nebulizer 00:00: morning [place] solution 00 and 2 mL Medical in the Branch evening. traZODone 2022-0 Yes [id number] 50mg Take 1 [facility] nivers 50 mg 1-05 tablet by ity of tablet 00:00: mouth at [place] 00 bedtime. Medical Branch glipiZIDE 2022-0 Yes [id number] 2.5mg Take 1 [facility] n[facility] XL 2.5 mg 1-05 tablet by ity o f 24 hr 00:00: mouth in [place] tablet 00 the Medical morning Branch and 1 tablet in the evening. arformotero 2022-0 Yes [id number] 15ug Use 2 mL [facility] L 15 mcg/2 1-05 as ity of mL 00:00: directed [place] nebulizer 00 in the Medical solution morning Branch and 2 mL in the evening. ipratropium 0 Yes [id number] .5mg Inhale 2.5 [facility] 0.02 % 1-05 mL every 4 ity of nebulizer 00:00: (four) [place] solution 00 hours as Medical needed for Branch Wheezing or Shortness of Breath. albuterol 0 Yes [id number] 2{puff} Inhale 2 [facility] 90 1-05 Puffs ity of mcg/actuati 00:00: every 6 [place] as on inhaler 00 (six) Medical hours as Branch needed for Wheezing or Shortness of Breath. cloNIDine 0 Yes [id number] .2mg Take 1 [facility] nivers 0.2 mg [...] every Medical morning. Branch levothyroxi 0 Yes [id number] 150ug Take 1 [facility] ne 150 mcg 1-05 tablet by ity of tablet 00:00: mouth [place] 00 every Medical morning. Branch tamsulosin 0 Yes [id number] .4mg Take 1 [facility] 0.4 mg 24 1-05 9102 capsule by ity of hr capsule 00:00: mouth in [place] as 00 the Medical morning. Branch budesonide 0 Yes [id number] .5mg Inhale 2 [facility] 0.5 mg/2 mL 1-05 mL in the ity of nebulizer 00:00: morning [place] solution 00 and 2 mL Medical in the Branch evening. traZODone 2022-0 Yes [id number] 50mg Take 1 [facility] nivers 50 mg 1-05 tablet by ity of tablet 00:00: mouth at [place] 00 bedtime. Medical Branch glipiZIDE 2022-0 Yes [id number] 2.5mg Take 1 [facility] n[facility] XL 2.5 mg 1-05 tablet by ity o f 24 hr 00:00: mouth in [place] tablet 00 the Medical morning Branch and 1 tablet in the evening. arformotero 0 Yes [id number] 15ug Use 2 mL [facility] L 15 mcg/2 1-05 as ity of mL 00:00: directed [place] nebulizer 00 in the Medical solution morning Branch and 2 mL in the evening. ipratropium 0 Yes [id number] .5mg Inhale 2.5 [facility] 0.02 % 1-05 mL every 4 ity of nebulizer 00:00: (four) [place] solution 00 hours as Medical needed for Branch Wheezing or Shortness of Breath. albuterol 0 Yes [id number] 2{puff} Inhale 2 [facility] 90 1-05 Puffs ity of mcg/actuati 00:00: every 6 [place] as on inhaler 00 (six) Medical hours as Branch needed for Wheezing or Shortness of Breath. cloNIDine Yes [id number] .2mg Take 1 [facility] n[facility] 0.2 mg 1-05 tablet by ity of tablet 00:00: mouth 3 [place] 00 (three) Medical times Branch daily as needed (Uncontrol led Hypertensi on). Take 1 Tab if BP > 150/90 NIFEdipine 0 Yes 30mg Take 1 [facility] rs ER 30 mg 1-05 tablet by ity of tablet 00:00: mouth [place] 00 every Medical morning. Branch levothyroxi Yes [id number] 150ug Take 1 [facility] ne 150 mcg 1-05 tablet by ity of tablet 00:00: mouth [place] 00 every Medical morning. Branch tamsulosin 0 Yes [id number] .4mg Take 1 [facility] 0.4 mg 24 1-05 9102 capsule by ity of hr capsule 00:00: mouth in [place] as 00 the Medical morning. Branch budesonide Yes [id number] .5mg Inhale 2 [facility] 0.5 mg/2 mL 1-05 mL in the ity of nebulizer 00:00: morning [place] solution 00 and 2 mL Medical in the Branch evening. traZODone 0 Yes [id number] 50mg Take 1 [facility] nivers 50 mg 1-05 tablet by [facility]y of tablet 00:00: mouth at [place] 00 bedtime. Medical Branch glipiZIDE 0 Yes [id number] 2.5mg Take 1 [facility] nivers XL 2.5 mg 1-05 tablet by ity o f 24 hr 00:00: mouth in [place] tablet 00 the Medical morning Branch and 1 tablet in the evening. arformotero 0 Yes [id number] 15ug Use 2 mL [facility] L 15 mcg/2 1-05 as ity of mL 00:00: directed [place] nebulizer 00 in the Medical solution morning Branch and 2 mL in the evening. ipratropium 0 Yes [id number] .5mg Inhale 2.5 [facility] 0.02 % 1-05 mL every 4 ity of nebulizer 00:00: (four) [place] solution 00 hours as Medical needed for Branch Wheezing or Shortness of Breath. albuterol 0 Yes [id number] 2{puff} Inhale 2 [facility] 90 1-05 Puffs ity of mcg/actuati 00:00: every 6 [place] as on inhaler 00 (six) Medical hours as Branch needed for Wheezing or Shortness of Breath. cloNIDine Yes [id number] .2mg Take 1 [facility] nivers 0.2 mg [...] every Medical morning. Branch levothyroxi 0 Yes [id number] 150ug Take 1 [facility] ne 150 mcg 1-05 tablet by it[facility] of tablet 00:00: mouth [place] 00 every Medical morning. Branch tamsulosin 0 Yes [id number] .4mg Take 1 [facility] 0.4 mg 24 1-05 9102 capsule by ity of hr capsule 00:00: mouth in [place] as 00 the Medical morning. Branch budesonide 0 Yes [id number] .5mg Inhale 2 [facility] 0.5 mg/2 mL 1-05 mL in the ity of nebulizer 00:00: morning [place] solution 00 and 2 mL Medical in the Branch evening. traZODone 2022-0 Yes [id number] 50mg Take 1 [facility] nivers 50 mg 1-05 tablet by [facility] of tablet 00:00: mouth at [place] 00 bedtime. Medical Branch glipiZIDE Yes [id number] 2.5mg Take 1 [facility] n[facility] XL 2.5 mg 1-05 tablet by ity o f 24 hr 00:00: mouth in [place] tablet 00 the Medical morning Branch and 1 tablet in the evening. arformotero Yes [id number] 15ug Use 2 mL [facility] L 15 mcg/2 1-05 as ity of mL 00:00: directed [place] nebulizer 00 in the Medical solution morning Branch and 2 mL in the evening. ipratropium Yes [id number] .5mg Inhale 2.5 [facility] 0.02 % 1-05 mL every 4 ity of nebulizer 00:00: (four) [place] solution 00 hours as Medical needed for Branch Wheezing or Shortness of Breath. albuterol Yes [id number] 2{puff} Inhale 2 [facility] 90 1-05 Puffs ity of mcg/actuati 00:00: every 6 [place] as on inhaler 00 (six) Medical hours as Branch needed for Wheezing or Shortness of Breath. cloNIDine Yes [id number] .2mg Take 1 [facility] nivers 0.2 mg 1-05 tablet by ity of tablet 00:00: mouth 3 [place] 00 (three) Medical times Branch daily as needed (Uncontrol led Hypertensi on). Take 1 Tab if BP > 150/90 NIFEdipine 0 Yes 30mg Take 1 [facility] rs ER 30 mg 1-05 tablet by it[facility] of tablet 00:00: mouth [place] 00 every Medical morning. Branch levothyroxi Yes [id number] 150ug Take 1 [facility] ne 150 mcg 1-05 tablet by ity of tablet 00:00: mouth [place] 00 every Medical morning. Branch tamsulosin Yes [id number] .4mg Take 1 [facility] 0.4 mg 24 1-05 9102 capsule by ity of hr capsule 00:00: mouth in [place] as 00 the Medical morning. Branch budesonide Yes [id number] .5mg Inhale 2 [facility] 0.5 mg/2 mL 1-05 mL in the ity of nebulizer 00:00: morning [place] solution 00 and 2 mL Medical in the Branch evening. traZODone 0 Yes [id number] 50mg Take 1 [facility] n[facility] 50 mg 1-05 tablet by [facility] of tablet 00:00: mouth at [place] 00 bedtime. Medical Branch glipiZIDE 2022-0 Yes [id number] 2.5mg Take 1 [facility] n[facility] XL 2.5 mg 1-05 tablet by ity o f 24 hr 00:00: mouth in [place] tablet 00 the Medical morning Branch and 1 tablet in the evening. arformotero 2022-0 Yes [id number] 15ug Use 2 mL [facility] L 15 mcg/2 1-05 as ity of mL 00:00: directed [place] nebulizer 00 in the Medical solution morning Branch and 2 mL in the evening. ipratropium 2022-0 Yes [id number] .5mg Inhale 2.5 [facility] 0.02 % 1-05 mL every 4 [facility]y of nebulizer 00:00: (four) [place] solution 00 hours as Medical needed for Branch Wheezing or Shortness of Breath. albuterol Yes [id number] 2{puff} Inhale 2 [facility] 90 1-05 Puffs ity of mcg/actuati 00:00: every 6 [place] as on inhaler 00 (six) Medical hours as Branch needed for Wheezing or Shortness of Breath. cloNIDine 2022-0 Yes [id number] .2mg Take 1 [facility] n[facility] 0.2 mg [...] every Medical morning. Branch levothyroxi 2022-0 Yes [id number] 150ug Take 1 [facility] ne 150 mcg 1-05 tablet by ity of tablet 00:00: mouth [place] 00 every Medical morning. Branch tamsulosin 2022-0 Yes [id number] .4mg Take 1 [facility] 0.4 mg 24 1-05 9102 capsule by ity of hr capsule 00:00: mouth in [place] as 00 the Medical morning. Branch budesonide 2022-0 Yes [id number] .5mg Inhale 2 [facility] 0.5 mg/2 mL 1-05 mL in the ity of nebulizer 00:00: morning [place] solution 00 and 2 mL Medical in the Branch evening. traZODone Yes [id number] 50mg Take 1 [facility] 50 mg 1-05 tablet by [facility] of tablet 00:00: mouth at [place] 00 bedtime. Medical Branch glipiZIDE Yes [id number] 2.5mg Take 1 [facility] n[facility] XL 2.5 mg 1-05 tablet by ity o f 24 hr 00:00: mouth in [place] tablet 00 the Medical morning Branch and 1 tablet in the evening. arformotero Yes [id number] 15ug Use 2 mL [facility] L 15 mcg/2 1-05 as ity of mL 00:00: directed [place] nebulizer 00 in the Medical solution morning Branch and 2 mL in the evening. ipratropium Yes [id number] .5mg Inhale 2.5 [facility] 0.02 % 1-05 mL every 4 ity of nebulizer 00:00: (four) [place] solution 00 hours as Medical needed for Branch Wheezing or Shortness of Breath. albuterol Yes [id number] 2{puff} Inhale 2 [facility] 90 1-05 Puffs ity of mcg/actuati 00:00: every 6 [place] as on inhaler 00 (six) Medical hours as Branch needed for Wheezing or Shortness of Breath. cloNIDine Yes [id number] .2mg Take 1 [facility] n[facility] 0.2 mg 1-05 tablet by ity of tablet 00:00: mouth 3 [place] 00 (three) Medical times Branch daily as needed (Uncontrol led Hypertensi on). Take 1 Tab if BP > 150/90 levothyroxi Yes [id number] 150ug Take 1 [facility] ne 150 mcg 1-05 tablet by ity of tablet 00:00: mouth [place] 00 every Medical morning. Branch tamsulosin Yes [id number] .4mg Take 1 [facility] 0.4 mg 24 1-05 9102 capsule by ity of hr capsule 00:00: mouth in [place] as 00 the Medical morning. Branch budesonide Yes [id number] .5mg Inhale 2 [facility] 0.5 mg/2 mL 1-05 mL in the ity of nebulizer 00:00: morning [place] solution 00 and 2 mL Medical in the Branch evening. traZODone Yes [id number] 50mg Take 1 [facility] n[facility] 50 mg 1-05 tablet by [facility] of tablet 00:00: mouth at [place] 00 bedtime. Medical Branch glipiZIDE Yes [id number] 2.5mg Take 1 [facility] n[facility] XL 2.5 mg 1-05 tablet by ity o f 24 hr 00:00: mouth in [place] tablet 00 the Medical morning Branch and 1 tablet in the evening. arformotero Yes [id number] 15ug Use 2 mL [facility] L 15 mcg/2 1-05 as ity of mL 00:00: directed [place] nebulizer 00 in the Medical solution morning Branch and 2 mL in the evening. ipratropium Yes [id number] .5mg Inhale 2.5 [facility] 0.02 % 1-05 mL every 4 ity of nebulizer 00:00: (four) [place] solution 00 hours as Medical needed for Branch Wheezing or Shortness of Breath. albuterol Yes [id number] 2{puff} Inhale 2 [facility] 90 1-05 Puffs ity of mcg/actuati 00:00: every 6 [place] as on inhaler 00 (six) Medical hours as Branch needed for Wheezing or Shortness of Breath. cloNIDine Yes [id number] .2mg Take 1 [facility] n[facility] 0.2 mg 1-05 tablet by [facility] of tablet 00:00: mouth 3 [place] 00 (three) Medical times Branch daily as needed (Uncontrol led Hypertensi on). Take 1 Tab if BP > 150/90 NIFEdipine Yes 30mg Take 1 [facility] rs ER 30 mg 1-05 tablet by [facility] of tablet 00:00: mouth [place] 00 every Medical morning. Branch levothyroxi Yes [id number] 150ug Take 1 [facility] ne 150 mcg 1-05 tablet by ity of tablet 00:00: mouth [place] 00 every Medical morning. Branch tamsulosin Yes [id number] .4mg Take 1 [facility] 0.4 mg 24 1-05 9102 capsule by ity of hr capsule 00:00: mouth in [place] as 00 the Medical morning. Branch budesonide 0 Yes [id number] .5mg Inhale 2 [facility] 0.5 mg/2 mL 1-05 mL in the ity of nebulizer 00:00: morning [place] solution 00 and 2 mL Medical in the Branch evening. traZODone Yes [id number] 50mg Take 1 [facility] n[facility] 50 mg 1-05 tablet by [facility] of tablet 00:00: mouth at [place] 00 bedtime. Medical Branch glipiZIDE Yes [id number] 2.5mg Take 1 [facility] n[facility] XL 2.5 mg 1-05 tablet by ity o f 24 hr 00:00: mouth in [place] tablet 00 the Medical morning Branch and 1 tablet in the evening. arformotero Yes [id number] 15ug Use 2 mL [facility] L 15 mcg/2 1-05 as ity of mL 00:00: directed [place] nebulizer 00 in the Medical solution morning Branch and 2 mL in the evening. ipratropium Yes [id number] .5mg Inhale 2.5 [facility] 0.02 % 1-05 mL every 4 ity of nebulizer 00:00: (four) [place] solution 00 hours as Medical needed for Branch Wheezing or Shortness of Breath. albuterol Yes [id number] 2{puff} Inhale 2 [facility] 90 1-05 Puffs ity of mcg/actuati 00:00: every 6 [place] as on inhaler 00 (six) Medical hours as Branch needed for Wheezing or Shortness of Breath. cloNIDine Yes [id number] .2mg Take 1 [facility] n[facility] 0.2 mg 1-05 tablet by ity of tablet 00:00: mouth 3 [place] 00 (three) Medical times Branch daily as needed (Uncontrol led Hypertensi on). Take 1 Tab if BP > 150/90 NIFEdipine Yes 30mg Take 1 [facility] rs ER 30 mg 1-05 tablet by [facility] of tablet 00:00: mouth [place] 00 every Medical morning. Branch levothyroxi Yes [id number] 150ug Take 1 [facility] ne 150 mcg 1-05 tablet by [facility] of tablet 00:00: mouth [place] 00 every Medical morning. Branch tamsulosin Yes [id number] .4mg Take 1 [facility] 0.4 mg 24 1-05 9102 capsule by ity of hr capsule 00:00: mouth in [place] as 00 the Medical morning. Branch budesonide Yes [id number] .5mg Inhale 2 [facility] 0.5 mg/2 mL 1-05 mL in the ity of nebulizer 00:00: morning [place] solution 00 and 2 mL Medical in the Branch evening. traZODone Yes [id number] 50mg Take 1 [facility] nivers 50 mg 1-05 tablet by [facility] of tablet 00:00: mouth at [place] 00 bedtime. Medical Branch glipiZIDE Yes [id number] 2.5mg Take 1 [facility] n[facility] XL 2.5 mg 1-05 tablet by ity o f 24 hr 00:00: mouth in [place] tablet 00 the Medical morning Branch and 1 tablet in the evening. arformotero Yes [id number] 15ug Use 2 mL [facility] L 15 mcg/2 1-05 as ity of mL 00:00: directed [place] nebulizer 00 in the Medical solution morning Branch and 2 mL in the evening. ipratropium Yes [id number] .5mg Inhale 2.5 [facility] 0.02 % 1-05 mL every 4 ity of nebulizer 00:00: (four) [place] solution 00 hours as Medical needed for Branch Wheezing or Shortness of Breath. albuterol Yes [id number] 2{puff} Inhale 2 [facility] 90 1-05 Puffs ity of mcg/actuati 00:00: every 6 [place] as on inhaler 00 (six) Medical hours as Branch needed for Wheezing or Shortness of Breath. cloNIDine Yes [id number] .2mg Take 1 [facility] nivers 0.2 mg 1-05 tablet by ity of tablet 00:00: mouth 3 [place] 00 (three) Medical times Branch daily as needed (Uncontrol led Hypertensi on). Take 1 Tab if BP > 150/90 NIFEdipine Yes 30mg Take 1 [facility] rs ER 30 mg 1-05 tablet by ity of tablet 00:00: mouth [place] 00 every Medical morning. Branch levothyroxi Yes [id number] 150ug Take 1 [facility] ne 150 mcg 1-05 tablet by ity of tablet 00:00: mouth [place] 00 every Medical morning. Branch tamsulosin Yes [id number] .4mg Take 1 [facility] 0.4 mg 24 1-05 9102 capsule by ity of hr capsule 00:00: mouth in [place] as 00 the Medical morning. Branch budesonide Yes [id number] .5mg Inhale 2 [facility] 0.5 mg/2 mL 1-05 mL in the ity of nebulizer 00:00: morning [place] solution 00 and 2 mL Medical in the Branch evening. traZODone Yes [id number] 50mg Take 1 [facility] nivers 50 mg 1-05 tablet by ity of tablet 00:00: mouth at [place] 00 bedtime. Medical Branch glipiZIDE Yes [id number] 2.5mg Take 1 [facility] n[facility] XL 2.5 mg 1-05 tablet by ity o f 24 hr 00:00: mouth in [place] tablet 00 the Medical morning Branch and 1 tablet in the evening. arformotero Yes [id number] 15ug Use 2 mL [facility] L 15 mcg/2 1-05 as ity of mL 00:00: directed [place] nebulizer 00 in the Medical solution morning Branch and 2 mL in the evening. ipratropium Yes [id number] .5mg Inhale 2.5 [facility] 0.02 % 1-05 mL every 4 ity of nebulizer 00:00: (four) [place] solution 00 hours as Medical needed for Branch Wheezing or Shortness of Breath. albuterol Yes [id number] 2{puff} Inhale 2 [facility] 90 1-05 Puffs ity of mcg/actuati 00:00: every 6 [place] as on inhaler 00 (six) Medical hours as Branch needed for Wheezing or Shortness of Breath. cloNIDine Yes [id number] .2mg Take 1 [facility] nivers 0.2 mg 1-05 tablet by ity of tablet 00:00: mouth 3 [place] 00 (three) Medical times Branch daily as needed (Uncontrol led Hypertensi on). Take 1 Tab if BP > 150/90 NIFEdipine Yes 30mg Take 1 [facility] rs ER 30 mg 1-05 tablet by ity of tablet 00:00: mouth [place] 00 every Medical morning. Branch levothyroxi Yes [id number] 150ug Take 1 [facility] ne 150 mcg 1-05 tablet by ity of tablet 00:00: mouth [place] 00 every Medical morning. Branch tamsulosin Yes [id number] .4mg Take 1 [facility] 0.4 mg 24 1-05 9102 capsule by ity of hr capsule 00:00: mouth in [place] as 00 the Medical morning. Branch budesonide Yes [id number] .5mg Inhale 2 [facility] 0.5 mg/2 mL 1-05 mL in the ity of nebulizer 00:00: morning [place] solution 00 and 2 mL Medical in the Branch evening. traZODone Yes [id number] 50mg Take 1 [facility] nivers 50 mg 1-05 tablet by ity of tablet 00:00: mouth at [place] 00 bedtime. Medical Branch glipiZIDE Yes [id number] 2.5mg Take 1 [facility] n[facility] XL 2.5 mg 1-05 tablet by ity o f 24 hr 00:00: mouth in [place] tablet 00 the Medical morning Branch and 1 tablet in the evening. arformotero Yes [id number] 15ug Use 2 mL [facility] L 15 mcg/2 1-05 as ity of mL 00:00: directed [place] nebulizer 00 in the Medical solution morning Branch and 2 mL in the evening. ipratropium Yes [id number] .5mg Inhale 2.5 [facility] 0.02 % 1-05 mL every 4 ity of nebulizer 00:00: (four) [place] solution 00 hours as Medical needed for Branch Wheezing or Shortness of Breath. albuterol Yes [id number] 2{puff} Inhale 2 [facility] 90 1-05 Puffs ity of mcg/actuati 00:00: every 6 [place] as on inhaler 00 (six) Medical hours as Branch needed for Wheezing or Shortness of Breath. cloNIDine Yes [id number] .2mg Take 1 [facility] nivers 0.2 mg 1-05 tablet by ity of tablet 00:00: mouth 3 [place] 00 (three) Medical times Branch daily as needed (Uncontrol led Hypertensi on). Take 1 Tab if BP > 150/90 NIFEdipine 0 Yes 30mg Take 1 [facility] rs ER 30 mg 1-05 tablet by ity of tablet 00:00: mouth [place] 00 every Medical morning. Branch levothyroxi Yes [id number] 150ug Take 1 [facility] ne 150 mcg 1-05 tablet by ity of tablet 00:00: mouth [place] 00 every Medical morning. Branch tamsulosin Yes [id number] .4mg Take 1 [facility] 0.4 mg 24 1-05 9102 capsule by ity of hr capsule 00:00: mouth in [place] as 00 the Medical morning. Branch budesonide Yes [id number] .5mg Inhale 2 [facility] 0.5 mg/2 mL 1-05 mL in the ity of nebulizer 00:00: morning [place] solution 00 and 2 mL Medical in the Branch evening. traZODone Yes [id number] 50mg Take 1 [facility] nivers 50 mg 1-05 tablet by ity of tablet 00:00: mouth at [place] 00 bedtime. Medical Branch glipiZIDE Yes [id number] 2.5mg Take 1 [facility] n[facility] XL 2.5 mg 1-05 tablet by ity o f 24 hr 00:00: mouth in [place] tablet 00 the Medical morning Branch and 1 tablet in the evening. arformotero Yes [id number] 15ug Use 2 mL [facility] L 15 mcg/2 1-05 as ity of mL 00:00: directed [place] nebulizer 00 in the Medical solution morning Branch and 2 mL in the evening. ipratropium Yes [id number] .5mg Inhale 2.5 [facility] 0.02 % 1-05 mL every 4 ity of nebulizer 00:00: (four) [place] solution 00 hours as Medical needed for Branch Wheezing or Shortness of Breath. albuterol Yes [id number] 2{puff} Inhale 2 [facility] 90 1-05 Puffs ity of mcg/actuati 00:00: every 6 [place] as on inhaler 00 (six) Medical hours as Branch needed for Wheezing or Shortness of Breath. cloNIDine Yes [id number] .2mg Take 1 [facility] nivers 0.2 mg 1-05 tablet by ity of tablet 00:00: mouth 3 [place] 00 (three) Medical times Branch daily as needed (Uncontrol led Hypertensi on). Take 1 Tab if BP > 150/90 NIFEdipine Yes 30mg Take 1 [facility] rs ER 30 mg 1-05 tablet by ity of tablet 00:00: mouth [place] 00 every Medical morning. Branch levothyroxi Yes [id number] 150ug Take 1 [facility] ne 150 mcg 1-05 tablet by ity of tablet 00:00: mouth [place] 00 every Medical morning. Branch tamsulosin Yes [id number] .4mg Take 1 [facility] 0.4 mg 24 1-05 9102 capsule by ity of hr capsule 00:00: mouth in [place] as 00 the Medical morning. Branch budesonide Yes [id number] .5mg Inhale 2 [facility] 0.5 mg/2 mL 1-05 mL in the ity of nebulizer 00:00: morning [place] solution 00 and 2 mL Medical in the Branch evening. traZODone Yes [id number] 50mg Take 1 [facility] nivers 50 mg 1-05 tablet by ity of tablet 00:00: mouth at [place] 00 bedtime. Medical Branch glipiZIDE Yes [id number] 2.5mg Take 1 [facility] n[facility] XL 2.5 mg 1-05 tablet by ity o f 24 hr 00:00: mouth in [place] tablet 00 the Medical morning Branch and 1 tablet in the evening. arformotero Yes [id number] 15ug Use 2 mL [facility] L 15 mcg/2 1-05 as ity of mL 00:00: directed [place] nebulizer 00 in the Medical solution morning Branch and 2 mL in the evening. ipratropium Yes [id number] .5mg Inhale 2.5 [facility] 0.02 % 1-05 mL every 4 ity of nebulizer 00:00: (four) [place] solution 00 hours as Medical needed for Branch Wheezing or Shortness of Breath. albuterol Yes [id number] 2{puff} Inhale 2 [facility] 90 1-05 Puffs ity of mcg/actuati 00:00: every 6 [place] as on inhaler 00 (six) Medical hours as Branch needed for Wheezing or Shortness of Breath. cloNIDine Yes [id number] .2mg Take 1 [facility] nivers 0.2 mg 1-05 tablet by ity of tablet 00:00: mouth 3 [place] 00 (three) Medical times Branch daily as needed (Uncontrol led Hypertensi on). Take 1 Tab if BP > 150/90 NIFEdipine Yes 30mg Take 1 [facility] rs ER 30 mg 1-05 tablet by ity of tablet 00:00: mouth [place] 00 every Medical morning. Branch levothyroxi 2022-0 Yes [id number] 150ug Take 1 [facility] ne 150 mcg 1-05 tablet by ity of tablet 00:00: mouth [place] 00 every Medical morning. Branch tamsulosin 2022-0 Yes [id number] .4mg Take 1 [facility] 0.4 mg 24 1-05 9102 capsule by ity of hr capsule 00:00: mouth in [place] as 00 the Medical morning. Branch budesonide 2022-0 Yes [id number] .5mg Inhale 2 [facility] 0.5 mg/2 mL 1-05 mL in the ity of nebulizer 00:00: morning [place] solution 00 and 2 mL Medical in the Branch evening. traZODone 2022-0 Yes [id number] 50mg Take 1 [facility] nivers 50 mg 1-05 tablet by ity of tablet 00:00: mouth at [place] 00 bedtime. Medical Branch glipiZIDE 2022-0 Yes [id number] 2.5mg Take 1 [facility] n[facility] XL 2.5 mg 1-05 tablet by ity o f 24 hr 00:00: mouth in [place] tablet 00 the Medical morning Branch and 1 tablet in the evening. arformotero 2022-0 Yes [id number] 15ug Use 2 mL [facility] L 15 mcg/2 1-05 as ity of mL 00:00: directed [place] nebulizer 00 in the Medical solution morning Branch and 2 mL in the evening. ipratropium 2022-0 Yes [id number] .5mg Inhale 2.5 [facility] 0.02 % 1-05 mL every 4 ity of nebulizer 00:00: (four) [place] solution 00 hours as Medical needed for Branch Wheezing or Shortness of Breath. cloNIDine 2022-0 Yes [id number] .2mg Take 1 [facility] nivers 0.2 mg 1-05 tablet by ity of tablet 00:00: mouth 3 [place] 00 (three) Medical times Branch daily as needed (Uncontrol led Hypertensi on). Take 1 Tab if BP > 150/90 NIFEdipine 2022-0 Yes 30mg Take 1 [facility] rs ER 30 mg 1-05 tablet by ity of tablet 00:00: mouth [place] 00 every Medical morning. Branch levothyroxi 2023-0 Yes [id number] 150ug Take 1 [facility] ne 150 mcg 1-05 tablet by ity of tablet 00:00: mouth [place] 00 every Medical morning. Branch tamsulosin 0 Yes [id number] .4mg Take 1 [facility] 0.4 mg 24 1-05 9102 capsule by ity of hr capsule 00:00: mouth in [place] as 00 the Medical morning. Branch budesonide 0 Yes [id number] .5mg Inhale 2 [facility] 0.5 mg/2 mL 1-05 mL in the ity of nebulizer 00:00: morning [place] solution 00 and 2 mL Medical in the Branch evening. traZODone 2022-0 Yes [id number] 50mg Take 1 [facility] nivers 50 mg 1-05 tablet by ity of tablet 00:00: mouth at [place] 00 bedtime. Medical Branch glipiZIDE 0 Yes [id number] 2.5mg Take 1 [facility] n[facility] XL 2.5 mg 1-05 tablet by ity o f 24 hr 00:00: mouth in [place] tablet 00 the Medical morning Branch and 1 tablet in the evening. arformotero Yes [id number] 15ug Use 2 mL [facility] L 15 mcg/2 1-05 as ity of mL 00:00: directed [place] nebulizer 00 in the Medical solution morning Branch and 2 mL in the evening. ipratropium 0 Yes [id number] .5mg Inhale 2.5 [facility] 0.02 % 1-05 mL every 4 ity of nebulizer 00:00: (four) [place] solution 00 hours as Medical needed for Branch Wheezing or Shortness of Breath. cloNIDine 0 Yes [id number] .2mg Take 1 [facility] nivers 0.2 mg [...] every Medical morning. Branch levothyroxi 2022-0 Yes [id number] 150ug Take 1 [facility] ne 150 mcg 1-05 tablet by ity of tablet 00:00: mouth [place] 00 every Medical morning. Branch tamsulosin 2022-0 Yes [id number] .4mg Take 1 [facility] 0.4 mg 24 03-08 9102 capsule by ity of hr capsule 00:00: mouth in [place] as 00 the Medical morning. Branch budesonide 2022-0 Yes [id number] .5mg Inhale 2 [facility] 0.5 mg/2 mL 1-05 mL in the ity of nebulizer 00:00: morning [place] solution 00 and 2 mL Medical in the Branch evening. traZODone 2022-0 Yes [id number] 50mg Take 1 [facility] nivers 50 mg 1-05 tablet by ity of tablet 00:00: mouth at [place] 00 bedtime. Medical Branch glipiZIDE 2022-0 Yes [id number] 2.5mg Take 1 [facility] n[facility] XL 2.5 mg 1-05 tablet by ity o f 24 hr 00:00: mouth in [place] tablet 00 the Medical morning Branch and 1 tablet in the evening. arformotero 2022-0 Yes [id number] 15ug Use 2 mL [facility] L 15 mcg/2 1-05 as ity of mL 00:00: directed [place] nebulizer 00 in the Medical solution morning Branch and 2 mL in the evening. ipratropium 2022-0 Yes [id number] .5mg Inhale 2.5 [facility] 0.02 % 1-05 mL every 4 ity of nebulizer 00:00: (four) [place] solution 00 hours as Medical needed for Branch Wheezing or Shortness of Breath. cloNIDine 2022-0 Yes [id number] .2mg Take 1 [facility] nivers 0.2 mg [...] every Medical morning. Branch levothyroxi 2022-0 Yes [id number] 150ug Take 1 [facility] ne 150 mcg 1-05 tablet by ity of tablet 00:00: mouth [place] 00 every Medical morning. Branch tamsulosin 2022-0 Yes [id number] .4mg Take 1 [facility] 0.4 mg 24 03-08 9102 capsule by ity of hr capsule 00:00: mouth in [place] as 00 the Medical morning. Branch budesonide 2022-0 Yes [id number] .5mg Inhale 2 [facility] 0.5 mg/2 mL 1-05 mL in the ity of nebulizer 00:00: morning [place] solution 00 and 2 mL Medical in the Branch evening. traZODone 2022-0 Yes [id number] 50mg Take 1 [facility] nivers 50 mg 1-05 tablet by ity of tablet 00:00: mouth at [place] 00 bedtime. Medical Branch glipiZIDE 2022-0 Yes [id number] 2.5mg Take 1 [facility] n[facility] XL 2.5 mg 1-05 tablet by ity o f 24 hr 00:00: mouth in [place] tablet 00 the Medical morning Branch and 1 tablet in the evening. arformotero 0 Yes [id number] 15ug Use 2 mL [facility] L 15 mcg/2 1-05 as ity of mL 00:00: directed [place] nebulizer 00 in the Medical solution morning Branch and 2 mL in the evening. ipratropium 0 Yes [id number] .5mg Inhale 2.5 [facility] 0.02 % 1-05 mL every 4 ity of nebulizer 00:00: (four) [place] solution 00 hours as Medical needed for Branch Wheezing or Shortness of Breath. cloNIDine 2022-0 Yes [id number] .2mg Take 1 [facility] nivers 0.2 mg [...] every Medical morning. Branch levothyroxi 2022-0 Yes [id number] 150ug Take 1 [facility] ne 150 mcg 1-05 tablet by ity of tablet 00:00: mouth [place] 00 every Medical morning. Branch tamsulosin 0 Yes [id number] .4mg Take 1 [facility] 0.4 mg 24 1-05 9102 capsule by ity of hr capsule 00:00: mouth in [place] as 00 the Medical morning. Branch budesonide 2022-0 Yes [id number] .5mg Inhale 2 [facility] 0.5 mg/2 mL 1-05 mL in the ity of nebulizer 00:00: morning [place] solution 00 and 2 mL Medical in the Branch evening. traZODone 2022-0 Yes [id number] 50mg Take 1 [facility] nivers 50 mg 1-05 tablet by ity of tablet 00:00: mouth at [place] 00 bedtime. Medical Branch glipiZIDE 0 Yes [id number] 2.5mg Take 1 [facility] n[facility] XL 2.5 mg 1-05 tablet by ity o f 24 hr 00:00: mouth in [place] tablet 00 the Medical morning Branch and 1 tablet in the evening. arformotero Yes [id number] 15ug Use 2 mL [facility] L 15 mcg/2 1-05 as ity of mL 00:00: directed [place] nebulizer 00 in the Medical solution morning Branch and 2 mL in the evening. ipratropium Yes [id number] .5mg Inhale 2.5 [facility] 0.02 % 1-05 mL every 4 ity of nebulizer 00:00: (four) [place] solution 00 hours as Medical needed for Branch Wheezing or Shortness of Breath. cloNIDine Yes [id number] .2mg Take 1 [facility] n[facility] 0.2 mg 1-05 tablet by ity of tablet 00:00: mouth 3 [place] 00 (three) Medical times Branch daily as needed (Uncontrol led Hypertensi on). Take 1 Tab if BP > 150/90 NIFEdipine Yes 30mg Take 1 [facility] rs ER 30 mg 1-05 tablet by ity of tablet 00:00: mouth [place] 00 every Medical morning. Branch levothyroxi 0 Yes [id number] 150ug Take 1 [facility] ne 150 mcg 1-05 tablet by ity of tablet 00:00: mouth [place] 00 every Medical morning. Branch tamsulosin 0 Yes [id number] .4mg Take 1 [facility] 0.4 mg 24 1-05 9102 capsule by ity of hr capsule 00:00: mouth in [place] as 00 the Medical morning. Branch budesonide 0 Yes [id number] .5mg Inhale 2 [facility] 0.5 mg/2 mL 1-05 mL in the ity of nebulizer 00:00: morning [place] solution 00 and 2 mL Medical in the Branch evening. traZODone 2022-0 Yes [id number] 50mg Take 1 [facility] nivers 50 mg 1-05 tablet by [facility]y of tablet 00:00: mouth at [place] 00 bedtime. Medical Branch glipiZIDE 0 Yes [id number] 2.5mg Take 1 [facility] n[facility] XL 2.5 mg 1-05 tablet by ity o f 24 hr 00:00: mouth in [place] tablet 00 the Medical morning Branch and 1 tablet in the evening. arformotero Yes [id number] 15ug Use 2 mL [facility] L 15 mcg/2 1-05 as ity of mL 00:00: directed [place] nebulizer 00 in the Medical solution morning Branch and 2 mL in the evening. ipratropium Yes [id number] .5mg Inhale 2.5 [facility] 0.02 % 1-05 mL every 4 ity of nebulizer 00:00: (four) [place] solution 00 hours as Medical needed for Branch Wheezing or Shortness of Breath. cloNIDine Yes [id number] .2mg Take 1 U nivers 0.2 mg 1-05 tablet by ity of tablet 00:00: mouth 3 [place] 00 (three) Medical times Branch daily as needed (Uncontrol led Hypertensi on). Take 1 Tab if BP > 150/90 NIFEdipine Yes 30mg Take 1 [facility] rs ER 30 mg 1-05 tablet by ity of tablet 00:00: mouth [place] 00 every Medical morning. Branch levothyroxi Yes [id number] 150ug Take 1 [facility] ne 150 mcg 1-05 tablet by ity of tablet 00:00: mouth [place] 00 every Medical morning. Branch tamsulosin Yes [id number] .4mg Take 1 [facility] 0.4 mg 24 1-05 9102 capsule by ity of hr capsule 00:00: mouth in [place] as 00 the Medical morning. Branch budesonide 0 Yes [id number] .5mg Inhale 2 [facility] 0.5 mg/2 mL 1-05 mL in the ity of nebulizer 00:00: morning [place] solution 00 and 2 mL Medical in the Branch evening. traZODone 2022-0 Yes [id number] 50mg Take 1 [facility] nivers 50 mg 1-05 tablet by ity of tablet 00:00: mouth at [place] 00 bedtime. Medical Branch glipiZIDE 2022-0 Yes [id number] 2.5mg Take 1 [facility] nivers XL 2.5 mg 1-05 tablet by ity o f 24 hr 00:00: mouth in [place] tablet 00 the Medical morning Branch and 1 tablet in the evening. arformotero 0 Yes [id number] 15ug Use 2 mL [facility] L 15 mcg/2 1-05 as ity of mL 00:00: directed [place] nebulizer 00 in the Medical solution morning Branch and 2 mL in the evening. ipratropium 0 Yes [id number] .5mg Inhale 2.5 [facility] 0.02 % 1-05 mL every 4 ity of nebulizer 00:00: (four) [place] solution 00 hours as Medical needed for Branch Wheezing or Shortness of Breath. cloNIDine 0 Yes [id number] .2mg Take 1 [facility] nivers 0.2 mg [...] every Medical morning. Branch levothyroxi 0 Yes [id number] 150ug Take 1 [facility] ne 150 mcg 1-05 tablet by ity of tablet 00:00: mouth [place] 00 every Medical morning. Branch tamsulosin 0 Yes [id number] .4mg Take 1 [facility] 0.4 mg 24 1-05 9102 capsule by ity of hr capsule 00:00: mouth in [place] as 00 the Medical morning. Branch budesonide 0 Yes [id number] .5mg Inhale 2 [facility] 0.5 mg/2 mL 1-05 mL in the ity of nebulizer 00:00: morning [place] solution 00 and 2 mL Medical in the Branch evening. traZODone 2022-0 Yes [id number] 50mg Take 1 [facility] nivers 50 mg 1-05 tablet by ity of tablet 00:00: mouth at [place] 00 bedtime. Medical Branch glipiZIDE 2022-0 Yes [id number] 2.5mg Take 1 [facility] nivers XL 2.5 mg 1-05 tablet by ity o f 24 hr 00:00: mouth in [place] tablet 00 the Medical morning Branch and 1 tablet in the evening. arformotero 2022-0 Yes [id number] 15ug Use 2 mL [facility] L 15 mcg/2 1-05 as ity of mL 00:00: directed [place] nebulizer 00 in the Medical solution morning Branch and 2 mL in the evening. ipratropium 2022-0 Yes [id number] .5mg Inhale 2.5 [facility] 0.02 % 1-05 mL every 4 ity of nebulizer 00:00: (four) [place] solution 00 hours as Medical needed for Branch Wheezing or Shortness of Breath. cloNIDine 2022-0 Yes [id number] .2mg Take 1 [facility] nivers 0.2 mg 1-05 tablet by ity of tablet 00:00: mouth 3 [place] 00 (three) Medical times Branch daily as needed (Uncontrol led Hypertensi on). Take 1 Tab if BP > 150/90 NIFEdipine 2022-0 Yes 30mg Take 1 [facility] rs ER 30 mg 1-05 tablet by ity of tablet 00:00: mouth [place] 00 every Medical morning. Branch levothyroxi 0 Yes [id number] 150ug Take 1 [facility] ne 150 mcg 1-05 tablet by ity of tablet 00:00: mouth [place] 00 every Medical morning. Branch tamsulosin 0 Yes [id number] .4mg Take 1 [facility] 0.4 mg 24 1-05 9102 capsule by ity of hr capsule 00:00: mouth in [place] as 00 the Medical morning. Branch budesonide 2022-0 Yes [id number] .5mg Inhale 2 [facility] 0.5 mg/2 mL 1-05 mL in the ity of nebulizer 00:00: morning [place] solution 00 and 2 mL Medical in the Branch evening. traZODone 2022-0 Yes [id number] 50mg Take 1 [facility] nivers 50 mg 1-05 tablet by ity of tablet 00:00: mouth at [place] 00 bedtime. Medical Branch glipiZIDE 2022-0 Yes [id number] 2.5mg Take 1 [facility] nivers XL 2.5 mg 1-05 tablet by ity o f 24 hr 00:00: mouth in [place] tablet 00 the Medical morning Branch and 1 tablet in the evening. arformotero 2022-0 Yes [id number] 15ug Use 2 mL [facility] L 15 mcg/2 1-05 as ity of mL 00:00: directed [place] nebulizer 00 in the Medical solution morning Branch and 2 mL in the evening. ipratropium 2022-0 Yes [id number] .5mg Inhale 2.5 [facility] 0.02 % 1-05 mL every 4 ity of nebulizer 00:00: (four) [place] solution 00 hours as Medical needed for Branch Wheezing or Shortness of Breath. cloNIDine 2022-0 Yes [id number] .2mg Take 1 [facility] nivers 0.2 mg [...] every Medical morning. Branch levothyroxi 2022-0 Yes [id number] 150ug Take 1 [facility] ne 150 mcg 1-05 tablet by ity of tablet 00:00: mouth [place] 00 every Medical morning. Branch tamsulosin 0 Yes [id number] .4mg Take 1 [facility] 0.4 mg 24 1-05 9102 capsule by ity of hr capsule 00:00: mouth in [place] as 00 the Medical morning. Branch budesonide 2022-0 Yes [id number] .5mg Inhale 2 [facility] 0.5 mg/2 mL 1-05 mL in the ity of nebulizer 00:00: morning [place] solution 00 and 2 mL Medical in the Branch evening. traZODone 2022-0 Yes [id number] 50mg Take 1 [facility] nivers 50 mg 1-05 tablet by ity of tablet 00:00: mouth at [place] 00 bedtime. Medical Branch glipiZIDE 2022-0 Yes [id number] 2.5mg Take 1 [facility] nivers XL 2.5 mg 1-05 tablet by ity o f 24 hr 00:00: mouth in [place] tablet 00 the Medical morning Branch and 1 tablet in the evening. arformotero 2022-0 Yes [id number] 15ug Use 2 mL [facility] L 15 mcg/2 1-05 as ity of mL 00:00: directed [place] nebulizer 00 in the Medical solution morning Branch and 2 mL in the evening. ipratropium 2022-0 Yes [id number] .5mg Inhale 2.5 [facility] 0.02 % 1-05 mL every 4 ity of nebulizer 00:00: (four) [place] solution 00 hours as Medical needed for Branch Wheezing or Shortness of Breath. cloNIDine 2022-0 Yes [id number] .2mg Take 1 [facility] nivers 0.2 mg [...] every Medical morning. Branch levothyroxi 2022-0 Yes [id number] 150ug Take 1 [facility] ne 150 mcg 1-05 tablet by ity of tablet 00:00: mouth [place] 00 every Medical morning. Branch tamsulosin 2022-0 Yes [id number] .4mg Take 1 [facility] 0.4 mg 24 1-05 9102 capsule by ity of hr capsule 00:00: mouth in [place] as 00 the Medical morning. Branch budesonide 2022-0 Yes [id number] .5mg Inhale 2 [facility] 0.5 mg/2 mL 1-05 mL in the ity of nebulizer 00:00: morning [place] solution 00 and 2 mL Medical in the Branch evening. traZODone 2022-0 Yes [id number] 50mg Take 1 [facility] nivers 50 mg 1-05 tablet by ity of tablet 00:00: mouth at [place] 00 bedtime. Medical Branch glipiZIDE 2022-0 Yes [id number] 2.5mg Take 1 [facility] nivers XL 2.5 mg 1-05 tablet by ity o f 24 hr 00:00: mouth in [place] tablet 00 the Medical morning Branch and 1 tablet in the evening. arformotero 2022-0 Yes [id number] 15ug Use 2 mL [facility] L 15 mcg/2 1-05 as ity of mL 00:00: directed [place] nebulizer 00 in the Medical solution morning Branch and 2 mL in the evening. ipratropium 2022-0 Yes [id number] .5mg Inhale 2.5 [facility] 0.02 % 1-05 mL every 4 ity of nebulizer 00:00: (four) [place] solution 00 hours as Medical needed for Branch Wheezing or Shortness of Breath. cloNIDine 2022-0 Yes [id number] .2mg Take 1 [facility] nivers 0.2 mg [...] every Medical morning. Branch levothyroxi 2022-0 Yes [id number] 150ug Take 1 [facility] ne 150 mcg 1-05 tablet by ity of tablet 00:00: mouth [place] 00 every Medical morning. Branch tamsulosin 0 Yes [id number] .4mg Take 1 [facility] 0.4 mg 24 1-05 9102 capsule by ity of hr capsule 00:00: mouth in [place] as 00 the Medical morning. Branch budesonide 2022-0 Yes [id number] .5mg Inhale 2 [facility] 0.5 mg/2 mL 1-05 mL in the ity of nebulizer 00:00: morning [place] solution 00 and 2 mL Medical in the Branch evening. traZODone 2022-0 Yes [id number] 50mg Take 1 [facility] nivers 50 mg 1-05 tablet by ity of tablet 00:00: mouth at [place] 00 bedtime. Medical Branch glipiZIDE 2022-0 Yes [id number] 2.5mg Take 1 [facility] n[facility] XL 2.5 mg 1-05 tablet by ity o f 24 hr 00:00: mouth in [place] tablet 00 the Medical morning Branch and 1 tablet in the evening. arformotero 2022-0 Yes [id number] 15ug Use 2 mL [facility] L 15 mcg/2 1-05 as ity of mL 00:00: directed [place] nebulizer 00 in the Medical solution morning Branch and 2 mL in the evening. ipratropium 2022-0 Yes [id number] .5mg Inhale 2.5 [facility] 0.02 % 1-05 mL every 4 ity of nebulizer 00:00: (four) [place] solution 00 hours as Medical needed for Branch Wheezing or Shortness of Breath. cloNIDine 2022-0 Yes [id number] .2mg Take 1 [facility] nivers 0.2 mg 1-05 tablet by ity of tablet 00:00: mouth 3 [place] 00 (three) Medical times Branch daily as needed (Uncontrol led Hypertensi on). Take 1 Tab if BP > 150/90 NIFEdipine 0 Yes 30mg Take 1 [facility] rs ER 30 mg 1-05 tablet by ity of tablet 00:00: mouth [place] 00 every Medical morning. Branch levothyroxi 0 Yes [id number] 150ug Take 1 [facility] ne 150 mcg 1-05 tablet by ity of tablet 00:00: mouth [place] 00 every Medical morning. Branch tamsulosin Yes [id number] .4mg Take 1 [facility] 0.4 mg 24 1-05 9102 capsule by ity of hr capsule 00:00: mouth in [place] as 00 the Medical morning. Branch budesonide Yes [id number] .5mg Inhale 2 [facility] 0.5 mg/2 mL 1-05 mL in the ity of nebulizer 00:00: morning [place] solution 00 and 2 mL Medical in the Branch evening. traZODone 0 Yes [id number] 50mg Take 1 [facility] nivers 50 mg 1-05 tablet by ity of tablet 00:00: mouth at [place] 00 bedtime. Medical Branch glipiZIDE 0 Yes [id number] 2.5mg Take 1 [facility] nivers XL 2.5 mg 1-05 tablet by ity o f 24 hr 00:00: mouth in [place] tablet 00 the Medical morning Branch and 1 tablet in the evening. arformotero 2022-0 Yes [id number] 15ug Use 2 mL [facility] L 15 mcg/2 1-05 as ity of mL 00:00: directed [place] nebulizer 00 in the Medical solution morning Branch and 2 mL in the evening. ipratropium 2022-0 Yes [id number] .5mg Inhale 2.5 [facility] 0.02 % 1-05 mL every 4 ity of nebulizer 00:00: (four) [place] solution 00 hours as Medical needed for Branch Wheezing or Shortness of Breath. cloNIDine 2022-0 Yes [id number] .2mg Take 1 [facility] nivers 0.2 mg 1-05 tablet by ity of tablet 00:00: mouth 3 [place] 00 (three) Medical times Branch daily as needed (Uncontrol led Hypertensi on). Take 1 Tab if BP > 150/90 NIFEdipine 2022-0 Yes 30mg Take 1 [facility] rs ER 30 mg 1-05 tablet by ity of tablet 00:00: mouth [place] 00 every Medical morning. Branch levothyroxi 2022-0 Yes [id number] 150ug Take 1 [facility] ne 150 mcg 1-05 tablet by ity of tablet 00:00: mouth [place] 00 every Medical morning. Branch tamsulosin 2022-0 Yes [id number] .4mg Take 1 [facility] 0.4 mg 24 1-05 9102 capsule by ity of hr capsule 00:00: mouth in [place] as 00 the Medical morning. Branch budesonide 2022-0 Yes [id number] .5mg Inhale 2 [facility] 0.5 mg/2 mL 1-05 mL in the ity of nebulizer 00:00: morning [place] solution 00 and 2 mL Medical in the Branch evening. traZODone 2022-0 Yes [id number] 50mg Take 1 [facility] nivers 50 mg 1-05 tablet by ity of tablet 00:00: mouth at [place] 00 bedtime. Medical Branch glipiZIDE 2022-0 Yes [id number] 2.5mg Take 1 [facility] nivers XL 2.5 mg 1-05 tablet by ity o f 24 hr 00:00: mouth in [place] tablet 00 the Medical morning Branch and 1 tablet in the evening. arformotero 2022-0 Yes [id number] 15ug Use 2 mL [facility] L 15 mcg/2 1-05 as ity of mL 00:00: directed [place] nebulizer 00 in the Medical solution morning Branch and 2 mL in the evening. ipratropium 2022-0 Yes [id number] .5mg Inhale 2.5 [facility] 0.02 % 1-05 mL every 4 ity of nebulizer 00:00: (four) [place] solution 00 hours as Medical needed for Branch Wheezing or Shortness of Breath. cloNIDine 2022-0 Yes [id number] .2mg Take 1 [facility] nivers 0.2 mg 1-05 tablet by ity of tablet 00:00: mouth 3 [place] 00 (three) Medical times Branch daily as needed (Uncontrol led Hypertensi on). Take 1 Tab if BP > 150/90 NIFEdipine 2022-0 Yes 30mg Take 1 [facility] rs ER 30 mg 1-05 tablet by ity of tablet 00:00: mouth [place] 00 every Medical morning. Branch levothyroxi 2022- Yes [id number] 150ug Take 1 [facility] ne 150 mcg 1-05 tablet by ity of tablet 00:00: mouth [place] 00 every Medical morning. Branch tamsulosin 0 Yes [id number] .4mg Take 1 [facility] 0.4 mg 24 1-05 9102 capsule by ity of hr capsule 00:00: mouth in [place] as 00 the Medical morning. Branch budesonide 2022-0 Yes [id number] .5mg Inhale 2 [facility] 0.5 mg/2 mL 1-05 mL in the ity of nebulizer 00:00: morning [place] solution 00 and 2 mL Medical in the Branch evening. traZODone 2022-0 Yes [id number] 50mg Take 1 [facility] nivers 50 mg 1-05 tablet by ity of tablet 00:00: mouth at [place] 00 bedtime. Medical Branch glipiZIDE 0 Yes [id number] 2.5mg Take 1 [facility] nivers XL 2.5 mg 1-05 tablet by ity o f 24 hr 00:00: mouth in [place] tablet 00 the Medical morning Branch and 1 tablet in the evening. arformotero 2022-0 Yes [id number] 15ug Use 2 mL [facility] L 15 mcg/2 1-05 as ity of mL 00:00: directed [place] nebulizer 00 in the Medical solution morning Branch and 2 mL in the evening. ipratropium 2022-0 Yes [id number] .5mg Inhale 2.5 [facility] 0.02 % 1-05 mL every 4 ity of nebulizer 00:00: (four) [place] solution 00 hours as Medical needed for Branch Wheezing or Shortness of Breath. cloNIDine 2022-0 Yes [id number] .2mg Take 1 [facility] nivers 0.2 mg [...] every Medical morning. Branch levothyroxi 2022-0 Yes [id number] 150ug Take 1 [facility] ne 150 mcg 1-05 tablet by ity of tablet 00:00: mouth [place] 00 every Medical morning. Branch tamsulosin 2022-0 Yes [id number] .4mg Take 1 [facility] 0.4 mg 24 03-08 9102 capsule by ity of hr capsule 00:00: mouth in [place] as 00 the Medical morning. Branch budesonide 2022-0 Yes [id number] .5mg Inhale 2 [facility] 0.5 mg/2 mL 1-05 mL in the ity of nebulizer 00:00: morning [place] solution 00 and 2 mL Medical in the Branch evening. traZODone 2022-0 Yes [id number] 50mg Take 1 [facility] nivers 50 mg 1-05 tablet by ity of tablet 00:00: mouth at [place] 00 bedtime. Medical Branch glipiZIDE 2022-0 Yes [id number] 2.5mg Take 1 [facility] nivers XL 2.5 mg 1-05 tablet by ity o f 24 hr 00:00: mouth in [place] tablet 00 the Medical morning Branch and 1 tablet in the evening. arformotero 2022-0 Yes [id number] 15ug Use 2 mL [facility] L 15 mcg/2 1-05 as ity of mL 00:00: directed [place] nebulizer 00 in the Medical solution morning Branch and 2 mL in the evening. ipratropium 2022-0 Yes [id number] .5mg Inhale 2.5 [facility] 0.02 % 1-05 mL every 4 ity of nebulizer 00:00: (four) [place] solution 00 hours as Medical needed for Branch Wheezing or Shortness of Breath. cloNIDine 2022-0 Yes [id number] .2mg Take 1 [facility] nivers 0.2 mg [...] every Medical morning. Branch levothyroxi 2022-0 Yes [id number] 150ug Take 1 [facility] ne 150 mcg 1-05 tablet by ity of tablet 00:00: mouth [place] 00 every Medical morning. Branch tamsulosin 2022-0 Yes [id number] .4mg Take 1 [facility] 0.4 mg 24 1-05 9102 capsule by ity of hr capsule 00:00: mouth in [place] as 00 the Medical morning. Branch budesonide Yes [id number] .5mg Inhale 2 [facility] 0.5 mg/2 mL 1-05 mL in the ity of nebulizer 00:00: morning [place] solution 00 and 2 mL Medical in the Branch evening. traZODone 0 Yes [id number] 50mg Take 1 [facility] nivers 50 mg 1-05 tablet by ity of tablet 00:00: mouth at [place] 00 bedtime. Medical Branch glipiZIDE 0 Yes [id number] 2.5mg Take 1 [facility] nivers XL 2.5 mg 1-05 tablet by ity o f 24 hr 00:00: mouth in [place] tablet 00 the Medical morning Branch and 1 tablet in the evening. arformotero Yes [id number] 15ug Use 2 mL [facility] L 15 mcg/2 1-05 as ity of mL 00:00: directed [place] nebulizer 00 in the Medical solution morning Branch and 2 mL in the evening. ipratropium Yes [id number] .5mg Inhale 2.5 [facility] 0.02 % 1-05 mL every 4 ity of nebulizer 00:00: (four) [place] solution 00 hours as Medical needed for Branch Wheezing or Shortness of Breath. cloNIDine 0 Yes [id number] .2mg Take 1 [facility] nivers 0.2 mg [...] every Medical morning. Branch levothyroxi 0 Yes [id number] 150ug Take 1 [facility] ne 150 mcg 1-05 tablet by ity of tablet 00:00: mouth [place] 00 every Medical morning. Branch tamsulosin Yes [id number] .4mg Take 1 [facility] 0.4 mg 24 1-05 9102 capsule by ity of hr capsule 00:00: mouth in [place] as 00 the Medical morning. Branch budesonide Yes [id number] .5mg Inhale 2 [facility] 0.5 mg/2 mL 1-05 mL in the ity of nebulizer 00:00: morning [place] solution 00 and 2 mL Medical in the Branch evening. traZODone 2022-0 Yes [id number] 50mg Take 1 [facility] nivers 50 mg 1-05 tablet by ity of tablet 00:00: mouth at [place] 00 bedtime. Medical Branch glipiZIDE 2022-0 Yes [id number] 2.5mg Take 1 [facility] nivers XL 2.5 mg 1-05 tablet by ity o f 24 hr 00:00: mouth in [place] tablet 00 the Medical morning Branch and 1 tablet in the evening. arformotero 2022-0 Yes [id number] 15ug Use 2 mL [facility] L 15 mcg/2 1-05 as ity of mL 00:00: directed [place] nebulizer 00 in the Medical solution morning Branch and 2 mL in the evening. ipratropium 2022-0 Yes [id number] .5mg Inhale 2.5 [facility] 0.02 % 1-05 mL every 4 ity of nebulizer 00:00: (four) [place] solution 00 hours as Medical needed for Branch Wheezing or Shortness of Breath. cloNIDine 2022-0 Yes [id number] .2mg Take 1 [facility] nivers 0.2 mg 1-05 tablet by ity of tablet 00:00: mouth 3 [place] 00 (three) Medical times Branch daily as needed (Uncontrol led Hypertensi on). Take 1 Tab if BP > 150/90 NIFEdipine 2022-0 Yes 30mg Take 1 [facility] rs ER 30 mg 1-05 tablet by ity of tablet 00:00: mouth [place] 00 every Medical morning. Branch levothyroxi 2022-0 Yes [id number] 150ug Take 1 [facility] ne 150 mcg 1-05 tablet by ity of tablet 00:00: mouth [place] 00 every Medical morning. Branch tamsulosin 2022-0 Yes [id number] .4mg Take 1 [facility] 0.4 mg 24 1-05 9102 capsule by ity of hr capsule 00:00: mouth in [place] as 00 the Medical morning. Branch budesonide 2022-0 Yes [id number] .5mg Inhale 2 [facility] 0.5 mg/2 mL 1-05 mL in the ity of nebulizer 00:00: morning [place] solution 00 and 2 mL Medical in the Branch evening. traZODone 2022-0 Yes [id number] 50mg Take 1 [facility] nivers 50 mg 1-05 tablet by ity of tablet 00:00: mouth at [place] 00 bedtime. Medical Branch glipiZIDE 0 Yes [id number] 2.5mg Take 1 [facility] nivers XL 2.5 mg 1-05 tablet by ity o f 24 hr 00:00: mouth in [place] tablet 00 the Medical morning Branch and 1 tablet in the evening. arformotero Yes [id number] 15ug Use 2 mL [facility] L 15 mcg/2 1-05 as ity of mL 00:00: directed [place] nebulizer 00 in the Medical solution morning Branch and 2 mL in the evening. ipratropium 0 Yes [id number] .5mg Inhale 2.5 [facility] 0.02 % 1-05 mL every 4 ity of nebulizer 00:00: (four) [place] solution 00 hours as Medical needed for Branch Wheezing or Shortness of Breath. cloNIDine Yes [id number] .2mg Take 1 [facility] nivers 0.2 mg 1-05 tablet by ity of tablet 00:00: mouth 3 [place] 00 (three) Medical times Branch daily as needed (Uncontrol led Hypertensi on). Take 1 Tab if BP > 150/90 NIFEdipine Yes 30mg Take 1 [facility] rs ER 30 mg 1-05 tablet by ity of tablet 00:00: mouth [place] 00 every Medical morning. Branch levothyroxi 0 Yes [id number] 150ug Take 1 [facility] ne 150 mcg 1-05 tablet by ity of tablet 00:00: mouth [place] 00 every Medical morning. Branch tamsulosin 0 Yes [id number] .4mg Take 1 [facility] 0.4 mg 24 1-05 9102 capsule by ity of hr capsule 00:00: mouth in [place] as 00 the Medical morning. Branch budesonide 0 Yes [id number] .5mg Inhale 2 [facility] 0.5 mg/2 mL 1-05 mL in the ity of nebulizer 00:00: morning [place] solution 00 and 2 mL Medical in the Branch evening. traZODone 2022-0 Yes [id number] 50mg Take 1 [facility] nivers 50 mg 1-05 tablet by ity of tablet 00:00: mouth at [place] [address] bedtime. Medical Branch glipiZIDE 2022-0 Yes [id number] 2.5mg Take 1 [facility] nivers XL 2.5 mg 1-05 tablet by ity o f 24 hr 00:00: mouth in [place] tablet 00 the Medical morning Branch and 1 tablet in the evening. arformotero 2022-0 Yes [id number] 15ug Use 2 mL [facility] L 15 mcg/2 1-05 as ity of mL 00:00: directed [place] nebulizer 00 in the Medical solution morning Branch and 2 mL in the evening. ipratropium 2022-0 Yes [id number] .5mg Inhale 2.5 [facility] 0.02 % 1-05 mL every 4 ity of nebulizer 00:00: (four) [place] solution 00 hours as Medical needed for Branch Wheezing or Shortness of Breath. cloNIDine 0 Yes [id number] .2mg Take 1 [facility] nivers 0.2 mg 1-05 tablet by ity of tablet 00:00: mouth 3 [place] 00 (three) Medical times Branch daily as needed (Uncontrol led Hypertensi on). Take 1 Tab if BP > 150/90 NIFEdipine 0 Yes 30mg Take 1 [facility] rs ER 30 mg 1-05 tablet by ity of tablet 00:00: mouth [place] 00 every Medical morning. Branch levothyroxi 0 Yes [id number] 150ug Take 1 [facility] ne 150 mcg 1-05 tablet by ity of tablet 00:00: mouth [place] 00 every Medical morning. Branch tamsulosin 0 Yes [id number] .4mg Take 1 [facility] 0.4 mg 24 1-05 9102 capsule by ity of hr capsule 00:00: mouth in [place] as 00 the Medical morning. Branch budesonide 2022-0 Yes [id number] .5mg Inhale 2 [facility] 0.5 mg/2 mL 1-05 mL in the ity of nebulizer 00:00: morning [place] solution 00 and 2 mL Medical in the Branch evening. traZODone 2022-0 Yes [id number] 50mg Take 1 [facility] nivers 50 mg 1-05 tablet by ity of tablet 00:00: mouth at [place] [address] bedtime. Medical Branch glipiZIDE 2022-0 Yes [id number] 2.5mg Take 1 [facility] nivers XL 2.5 mg 1-05 tablet by ity o f 24 hr 00:00: mouth in [place] tablet 00 the Medical morning Branch and 1 tablet in the evening. arformotero 0 Yes [id number] 15ug Use 2 mL [facility] L 15 mcg/2 1-05 as ity of mL 00:00: directed [place] nebulizer 00 in the Medical solution morning Branch and 2 mL in the evening. ipratropium 2022-0 Yes [id number] .5mg Inhale 2.5 [facility] 0.02 % 1-05 mL every 4 ity of nebulizer 00:00: (four) [place] solution 00 hours as Medical needed for Branch Wheezing or Shortness of Breath. cloNIDine 0 Yes [id number] .2mg Take 1 [facility] nivers 0.2 mg [...] every Medical morning. Branch levothyroxi 0 Yes [id number] 150ug Take 1 [facility] ne 150 mcg 1-05 tablet by ity of tablet 00:00: mouth [place] 00 every Medical morning. Branch tamsulosin 0 Yes [id number] .4mg Take 1 [facility] 0.4 mg 24 1-05 9102 capsule by ity of hr capsule 00:00: mouth in [place] as 00 the Medical morning. Branch budesonide 0 Yes [id number] .5mg Inhale 2 [facility] 0.5 mg/2 mL 1-05 mL in the ity of nebulizer 00:00: morning [place] solution 00 and 2 mL Medical in the Branch evening. traZODone 2022-0 Yes [id number] 50mg Take 1 [facility] nivers 50 mg 1-05 tablet by ity of tablet 00:00: mouth at [place] 00 bedtime. Medical Branch glipiZIDE 2022-0 Yes [id number] 2.5mg Take 1 [facility] nivers XL 2.5 mg 1-05 tablet by ity o f 24 hr 00:00: mouth in [place] tablet 00 the Medical morning Branch and 1 tablet in the evening. arformotero 2022-0 Yes [id number] 15ug Use 2 mL [facility] L 15 mcg/2 1-05 as ity of mL 00:00: directed [place] nebulizer 00 in the Medical solution morning Branch and 2 mL in the evening. ipratropium 2022-0 Yes [id number] .5mg Inhale 2.5 [facility] 0.02 % 1-05 mL every 4 ity of nebulizer 00:00: (four) [place] solution 00 hours as Medical needed for Branch Wheezing or Shortness of Breath. cloNIDine 2022-0 Yes [id number] .2mg Take 1 [facility] nivers 0.2 mg [...] every Medical morning. Branch levothyroxi 0 Yes [id number] 150ug Take 1 [facility] ne 150 mcg 1-05 tablet by ity of tablet 00:00: mouth [place] 00 every Medical morning. Branch tamsulosin 0 Yes [id number] .4mg Take 1 [facility] 0.4 mg 24 1-05 9102 capsule by ity of hr capsule 00:00: mouth in [place] as 00 the Medical morning. Branch budesonide 2022-0 Yes [id number] .5mg Inhale 2 [facility] 0.5 mg/2 mL 1-05 mL in the ity of nebulizer 00:00: morning [place] solution 00 and 2 mL Medical in the Branch evening. traZODone 2022-0 Yes [id number] 50mg Take 1 [facility] nivers 50 mg 1-05 tablet by ity of tablet 00:00: mouth at [place] 00 bedtime. Medical Branch glipiZIDE 2022-0 Yes [id number] 2.5mg Take 1 [facility] nivers XL 2.5 mg 1-05 tablet by ity o f 24 hr 00:00: mouth in [place] tablet 00 the Medical morning Branch and 1 tablet in the evening. arformotero 2022-0 Yes [id number] 15ug Use 2 mL [facility] L 15 mcg/2 1-05 as ity of mL 00:00: directed [place] nebulizer 00 in the Medical solution morning Branch and 2 mL in the evening. ipratropium 2022-0 Yes [id number] .5mg Inhale 2.5 [facility] 0.02 % 1-05 mL every 4 ity of nebulizer 00:00: (four) [place] solution 00 hours as Medical needed for Branch Wheezing or Shortness of Breath. cloNIDine 2022-0 Yes [id number] .2mg Take 1 [facility] nivers 0.2 mg [...] every Medical morning. Branch levothyroxi 2022-0 Yes [id number] 150ug Take 1 [facility] ne 150 mcg 1-05 tablet by ity of tablet 00:00: mouth [place] 00 every Medical morning. Branch tamsulosin 2022-0 Yes [id number] .4mg Take 1 [facility] 0.4 mg 24 1-05 9102 capsule by ity of hr capsule 00:00: mouth in [place] as 00 the Medical morning. Branch budesonide 2022-0 Yes [id number] .5mg Inhale 2 [facility] 0.5 mg/2 mL 1-05 mL in the ity of nebulizer 00:00: morning [place] solution 00 and 2 mL Medical in the Branch evening. traZODone 2022-0 Yes [id number] 50mg Take 1 [facility] nivers 50 mg 1-05 tablet by [facility] of tablet 00:00: mouth at [place] 00 bedtime. Medical Branch glipiZIDE 2022-0 Yes [id number] 2.5mg Take 1 [facility] nivers XL 2.5 mg 1-05 tablet by ity o f 24 hr 00:00: mouth in [place] tablet 00 the Medical morning Branch and 1 tablet in the evening. arformotero 2022-0 Yes [id number] 15ug Use 2 mL [facility] L 15 mcg/2 1-05 as ity of mL 00:00: directed [place] nebulizer 00 in the Medical solution morning Branch and 2 mL in the evening. ipratropium 2022-0 Yes [id number] .5mg Inhale 2.5 [facility] 0.02 % 1-05 mL every 4 ity of nebulizer 00:00: (four) [place] solution 00 hours as Medical needed for Branch Wheezing or Shortness of Breath. cloNIDine 0 Yes [id number] .2mg Take 1 [facility] nivers 0.2 mg [...] every Medical morning. Branch levothyroxi 0 Yes [id number] 150ug Take 1 [facility] ne 150 mcg 1-05 tablet by ity of tablet 00:00: mouth [place] 00 every Medical morning. Branch tamsulosin 0 Yes [id number] .4mg Take 1 [facility] 0.4 mg 24 1-05 9102 capsule by ity of hr capsule 00:00: mouth in [place] as 00 the Medical morning. Branch budesonide 0 Yes [id number] .5mg Inhale 2 [facility] 0.5 mg/2 mL 1-05 mL in the ity of nebulizer 00:00: morning [place] solution 00 and 2 mL Medical in the Branch evening. traZODone 2022-0 Yes [id number] 50mg Take 1 [facility] nivers 50 mg 1-05 tablet by [facility] of tablet 00:00: mouth at [place] 00 bedtime. Medical Branch glipiZIDE 2022-0 Yes [id number] 2.5mg Take 1 [facility] nivers XL 2.5 mg 1-05 tablet by ity o f 24 hr 00:00: mouth in [place] tablet 00 the Medical morning Branch and 1 tablet in the evening. arformotero 2022-0 Yes [id number] 15ug Use 2 mL [facility] L 15 mcg/2 1-05 as ity of mL 00:00: directed [place] nebulizer 00 in the Medical solution morning Branch and 2 mL in the evening. ipratropium 2022-0 Yes [id number] .5mg Inhale 2.5 [facility] 0.02 % 1-05 mL every 4 ity of nebulizer 00:00: (four) [place] solution 00 hours as Medical needed for Branch Wheezing or Shortness of Breath. cloNIDine 2023-0 Yes [id number] .2mg Take 1 [facility] nivers 0.2 mg 1-05 tablet by ity of tablet 00:00: mouth 3 [place] 00 (three) Medical times Branch daily as needed (Uncontrol led Hypertensi on). Take 1 Tab if BP > 150/90 NIFEdipine 0 Yes 30mg Take 1 Un[facility] rs ER 30 mg 1-05 tablet by ity of tablet 00:00: mouth [place] 00 every Medical morning. Branch levothyroxi 0 Yes [id number] 150ug Take 1 [facility] ne 150 mcg 1-05 tablet by ity of tablet 00:00: mouth [place] 00 every Medical morning. Branch tamsulosin Yes [id number] .4mg Take 1 [facility] 0.4 mg 24 1-05 9102 capsule by ity of hr capsule 00:00: mouth in [place] as 00 the Medical morning. Branch budesonide 0 Yes [id number] .5mg Inhale 2 [facility] 0.5 mg/2 mL 1-05 mL in the ity of nebulizer 00:00: morning [place] solution 00 and 2 mL Medical in the Branch evening. traZODone 0 Yes [id number] 50mg Take 1 [facility] nivers 50 mg 1-05 tablet by [facility] of tablet 00:00: mouth at [place] 00 bedtime. Medical Branch glipiZIDE 0 Yes [id number] 2.5mg Take 1 [facility] n[facility] XL 2.5 mg 1-05 tablet by ity o f 24 hr 00:00: mouth in [place] tablet 00 the Medical morning Branch and 1 tablet in the evening. arformotero 0 Yes [id number] 15ug Use 2 mL [facility] L 15 mcg/2 1-05 as ity of mL 00:00: directed [place] nebulizer 00 in the Medical solution morning Branch and 2 mL in the evening. ipratropium 2022-0 Yes [id number] .5mg Inhale 2.5 [facility] 0.02 % 1-05 mL every 4 ity of nebulizer 00:00: (four) [place] solution 00 hours as Medical needed for Branch Wheezing or Shortness of Breath. cloNIDine 0 Yes [id number] .2mg Take 1 [facility] nivers 0.2 mg 1-05 tablet by ity of tablet 00:00: mouth 3 [place] 00 (three) Medical times Branch daily as needed (Uncontrol led Hypertensi on). Take 1 Tab if BP > 150/90 NIFEdipine 2022-0 Yes 30mg Take 1 [facility] rs ER 30 mg 1-05 tablet by it[facility] of tablet 00:00: mouth [place] 00 every Medical morning. Branch levothyroxi 2022-0 Yes [id number] 150ug Take 1 [facility] ne 150 mcg 1-05 tablet by ity of tablet 00:00: mouth [place] 00 every Medical morning. Branch tamsulosin 0 Yes [id number] .4mg Take 1 [facility] 0.4 mg 24 1-05 9102 capsule by ity of hr capsule 00:00: mouth in [place] as 00 the Medical morning. Branch budesonide 0 Yes [id number] .5mg Inhale 2 [facility] 0.5 mg/2 mL 1-05 mL in the ity of nebulizer 00:00: morning [place] solution 00 and 2 mL Medical in the Branch evening. traZODone 2022-0 Yes [id number] 50mg Take 1 [facility] nivers 50 mg 1-05 tablet by [facility] of tablet 00:00: mouth at [place] 00 bedtime. Medical Branch glipiZIDE 0 Yes [id number] 2.5mg Take 1 [facility] nivers XL 2.5 mg 1-05 tablet by ity o f 24 hr 00:00: mouth in [place] tablet 00 the Medical morning Branch and 1 tablet in the evening. arformotero 2022-0 Yes [id number] 15ug Use 2 mL [facility] L 15 mcg/2 1-05 as ity of mL 00:00: directed [place] nebulizer 00 in the Medical solution morning Branch and 2 mL in the evening. ipratropium 2022-0 Yes [id number] .5mg Inhale 2.5 [facility] 0.02 % 1-05 mL every 4 ity of nebulizer 00:00: (four) [place] solution 00 hours as Medical needed for Branch Wheezing or Shortness of Breath. cloNIDine 2022-0 Yes [id number] .2mg Take 1 [facility] nivers 0.2 mg 1-05 tablet by ity of tablet 00:00: mouth 3 [place] 00 (three) Medical times Branch daily as needed (Uncontrol led Hypertensi on). Take 1 Tab if BP > 150/90 NIFEdipine 2022-0 Yes 30mg Take 1 [facility] rs ER 30 mg 1-05 tablet by it[facility] of tablet 00:00: mouth [place] 00 every Medical morning. Branch levothyroxi 2022-0 Yes [id number] 150ug Take 1 [facility] ne 150 mcg 1-05 tablet by ity of tablet 00:00: mouth [place] 00 every Medical morning. Branch tamsulosin 2022-0 Yes [id number] .4mg Take 1 [facility] 0.4 mg 24 1-05 9102 capsule by ity of hr capsule 00:00: mouth in [place] as 00 the Medical morning. Branch budesonide 2022-0 Yes [id number] .5mg Inhale 2 [facility] 0.5 mg/2 mL 1-05 mL in the ity of nebulizer 00:00: morning [place] solution 00 and 2 mL Medical in the Branch evening. traZODone 2022-0 Yes [id number] 50mg Take 1 [facility] nivers 50 mg 1-05 tablet by ity of tablet 00:00: mouth at [place] 00 bedtime. Medical Branch glipiZIDE 2022-0 Yes [id number] 2.5mg Take 1 [facility] n[facility] XL 2.5 mg 1-05 tablet by ity o f 24 hr 00:00: mouth in [place] tablet 00 the Medical morning Branch and 1 tablet in the evening. arformotero 2022-0 Yes [id number] 15ug Use 2 mL [facility] L 15 mcg/2 1-05 as ity of mL 00:00: directed [place] nebulizer 00 in the Medical solution morning Branch and 2 mL in the evening. ipratropium 2022-0 Yes [id number] .5mg Inhale 2.5 [facility] 0.02 % 1-05 mL every 4 ity of nebulizer 00:00: (four) [place] solution 00 hours as Medical needed for Branch Wheezing or Shortness of Breath. cloNIDine 2022-0 Yes [id number] .2mg Take 1 [facility] nivers 0.2 mg 1-05 tablet by ity of tablet 00:00: mouth 3 [place] 00 (three) Medical times Branch daily as needed (Uncontrol led Hypertensi on). Take 1 Tab if BP > 150/90 levothyroxi 2022-0 Yes [id number] 150ug Take 1 [facility] ne 150 mcg 1-05 tablet by ity of tablet 00:00: mouth [place] 00 every Medical morning. Branch tamsulosin 2022-0 Yes [id number] .4mg Take 1 [facility] 0.4 mg 24 - 9102 capsule by ity of hr capsule 00:00: mouth in [place] as 00 the Medical morning. Branch budesonide 2022-0 Yes [id number] .5mg Inhale 2 [facility] 0.5 mg/2 mL 1-05 mL in the ity of nebulizer 00:00: morning [place] solution 00 and 2 mL Medical in the Branch evening. traZODone 2022-0 Yes [id number] 50mg Take 1 [facility] nivers 50 mg 1-05 tablet by [facility]y of tablet 00:00: mouth at [place] 00 bedtime. Medical Branch glipiZIDE 2022-0 Yes [id number] 2.5mg Take 1 [facility] nivers XL 2.5 mg 1-05 tablet by ity o f 24 hr 00:00: mouth in [place] tablet 00 the Medical morning Branch and 1 tablet in the evening. arformotero 2022-0 Yes [id number] 15ug Use 2 mL [facility] L 15 mcg/2 1-05 as ity of mL 00:00: directed [place] nebulizer 00 in the Medical solution morning Branch and 2 mL in the evening. ipratropium 2022-0 Yes [id number] .5mg Inhale 2.5 [facility] 0.02 % 1-05 mL every 4 ity of nebulizer 00:00: (four) [place] solution 00 hours as Medical needed for Branch Wheezing or Shortness of Breath. cloNIDine 2022-0 Yes [id number] .2mg Take 1 [facility] nivers 0.2 mg [...] every Medical morning. Branch levothyroxi 2022-0 Yes [id number] 150ug Take 1 [facility] ne 150 mcg 1-05 tablet by ity of tablet 00:00: mouth [place] 00 every Medical morning. Branch tamsulosin 2022-0 Yes [id number] .4mg Take 1 [facility] 0.4 mg 24 03-08 9102 capsule by ity of hr capsule 00:00: mouth in [place] as 00 the Medical morning. Branch budesonide 2022-0 Yes [id number] .5mg Inhale 2 [facility] 0.5 mg/2 mL 1-05 mL in the ity of nebulizer 00:00: morning [place] solution 00 and 2 mL Medical in the Branch evening. traZODone 2022-0 Yes [id number] 50mg Take 1 [facility] nivers 50 mg 1-05 tablet by ity of tablet 00:00: mouth at [place] 00 bedtime. Medical Branch glipiZIDE 2022-0 Yes [id number] 2.5mg Take 1 [facility] n[facility] XL 2.5 mg 1-05 tablet by ity o f 24 hr 00:00: mouth in [place] tablet 00 the Medical morning Branch and 1 tablet in the evening. arformotero 0 Yes [id number] 15ug Use 2 mL [facility] L 15 mcg/2 1-05 as ity of mL 00:00: directed [place] nebulizer 00 in the Medical solution morning Branch and 2 mL in the evening. ipratropium 2022-0 Yes [id number] .5mg Inhale 2.5 [facility] 0.02 % 1-05 mL every 4 ity of nebulizer 00:00: (four) [place] solution 00 hours as Medical needed for Branch Wheezing or Shortness of Breath. cloNIDine 2022-0 Yes [id number] .2mg Take 1 [facility] nivers 0.2 mg [...] every Medical morning. Branch levothyroxi 2022-0 Yes [id number] 150ug Take 1 [facility] ne 150 mcg 1-05 tablet by ity of tablet 00:00: mouth [place] 00 every Medical morning. Branch tamsulosin 2022-0 Yes [id number] .4mg Take 1 [facility] 0.4 mg 24 1-05 9102 capsule by ity of hr capsule 00:00: mouth in [place] as 00 the Medical morning. Branch budesonide 2022-0 Yes [id number] .5mg Inhale 2 [facility] 0.5 mg/2 mL 1-05 mL in the ity of nebulizer 00:00: morning [place] solution 00 and 2 mL Medical in the Branch evening. traZODone 2022-0 Yes [id number] 50mg Take 1 [facility] nivers 50 mg 1-05 tablet by ity of tablet 00:00: mouth at [place] 00 bedtime. Medical Branch glipiZIDE 2022-0 Yes [id number] 2.5mg Take 1 [facility] n[facility] XL 2.5 mg 1-05 tablet by ity o f 24 hr 00:00: mouth in [place] tablet 00 the Medical morning Branch and 1 tablet in the evening. arformotero Yes [id number] 15ug Use 2 mL [facility] L 15 mcg/2 1-05 as ity of mL 00:00: directed [place] nebulizer 00 in the Medical solution morning Branch and 2 mL in the evening. ipratropium Yes [id number] .5mg Inhale 2.5 [facility] 0.02 % 1-05 mL every 4 ity of nebulizer 00:00: (four) [place] solution 00 hours as Medical needed for Branch Wheezing or Shortness of Breath. cloNIDine Yes [id number] .2mg Take 1 [facility] nivers 0.2 mg [...] every Medical morning. Branch levothyroxi 0 Yes [id number] 150ug Take 1 [facility] ne 150 mcg 1-05 tablet by ity of tablet 00:00: mouth [place] 00 every Medical morning. Branch tamsulosin 0 Yes [id number] .4mg Take 1 [facility] 0.4 mg 24 1-05 9102 capsule by ity of hr capsule 00:00: mouth in [place] as 00 the Medical morning. Branch budesonide 0 Yes [id number] .5mg Inhale 2 [facility] 0.5 mg/2 mL 1-05 mL in the ity of nebulizer 00:00: morning [place] solution 00 and 2 mL Medical in the Branch evening. traZODone 2022-0 Yes [id number] 50mg Take 1 [facility] nivers 50 mg 1-05 tablet by ity of tablet 00:00: mouth at [place] 00 bedtime. Medical Branch glipiZIDE 2022-0 Yes [id number] 2.5mg Take 1 [facility] n[facility] XL 2.5 mg 1-05 tablet by ity o f 24 hr 00:00: mouth in [place] tablet 00 the Medical morning Branch and 1 tablet in the evening. arformotero 2022-0 Yes [id number] 15ug Use 2 mL [facility] L 15 mcg/2 1-05 as ity of mL 00:00: directed [place] nebulizer 00 in the Medical solution morning Branch and 2 mL in the evening. ipratropium 2022-0 Yes [id number] .5mg Inhale 2.5 [facility] 0.02 % 1-05 mL every 4 ity of nebulizer 00:00: (four) [place] solution 00 hours as Medical needed for Branch Wheezing or Shortness of Breath. cloNIDine 0 Yes [id number] .2mg Take 1 [facility] nivers 0.2 mg [...] every Medical morning. Branch levothyroxi 0 Yes [id number] 150ug Take 1 [facility] ne 150 mcg 1-05 tablet by ity of tablet 00:00: mouth [place] 00 every Medical morning. Branch tamsulosin 0 Yes [id number] .4mg Take 1 [facility] 0.4 mg 24 1-05 9102 capsule by ity of hr capsule 00:00: mouth in [place] as 00 the Medical morning. Branch budesonide 2022-0 Yes [id number] .5mg Inhale 2 [facility] 0.5 mg/2 mL 1-05 mL in the ity of nebulizer 00:00: morning [place] solution 00 and 2 mL Medical in the Branch evening. traZODone 2022-0 Yes [id number] 50mg Take 1 [facility] nivers 50 mg 1-05 tablet by ity of tablet 00:00: mouth at [place] 00 bedtime. Medical Branch glipiZIDE 2022-0 Yes [id number] 2.5mg Take 1 [facility] nivers XL 2.5 mg 1-05 tablet by ity o f 24 hr 00:00: mouth in [place] tablet 00 the Medical morning Branch and 1 tablet in the evening. arformotero 0 Yes [id number] 15ug Use 2 mL [facility] L 15 mcg/2 1-05 as ity of mL 00:00: directed [place] nebulizer 00 in the Medical solution morning Branch and 2 mL in the evening. ipratropium 0 Yes [id number] .5mg Inhale 2.5 [facility] 0.02 % 1-05 mL every 4 ity of nebulizer 00:00: (four) [place] solution 00 hours as Medical needed for Branch Wheezing or Shortness of Breath. cloNIDine 0 Yes [id number] .2mg Take 1 [facility] nivers 0.2 mg [...] every Medical morning. Branch levothyroxi 0 Yes [id number] 150ug Take 1 [facility] ne 150 mcg 1-05 tablet by ity of tablet 00:00: mouth [place] 00 every Medical morning. Branch tamsulosin 0 Yes [id number] .4mg Take 1 [facility] 0.4 mg 24 1-05 9102 capsule by ity of hr capsule 00:00: mouth in [place] as 00 the Medical morning. Branch budesonide 0 Yes [id number] .5mg Inhale 2 [facility] 0.5 mg/2 mL 1-05 mL in the ity of nebulizer 00:00: morning [place] solution 00 and 2 mL Medical in the Branch evening. traZODone 0 Yes [id number] 50mg Take 1 [facility] nivers 50 mg 1-05 tablet by ity of tablet 00:00: mouth at [place] 00 bedtime. Medical Branch glipiZIDE 2022-0 Yes [id number] 2.5mg Take 1 [facility] nivers XL 2.5 mg 1-05 tablet by ity o f 24 hr 00:00: mouth in [place] tablet 00 the Medical morning Branch and 1 tablet in the evening. arformotero 2022-0 Yes [id number] 15ug Use 2 mL [facility] L 15 mcg/2 1-05 as ity of mL 00:00: directed [place] nebulizer 00 in the Medical solution morning Branch and 2 mL in the evening. ipratropium 2022-0 Yes [id number] .5mg Inhale 2.5 [facility] 0.02 % 1-05 mL every 4 ity of nebulizer 00:00: (four) [place] solution 00 hours as Medical needed for Branch Wheezing or Shortness of Breath. cloNIDine 2022-0 Yes [id number] .2mg Take 1 [facility] nivers 0.2 mg 1-05 tablet by ity of tablet 00:00: mouth 3 [place] 00 (three) Medical times Branch daily as needed (Uncontrol led Hypertensi on). Take 1 Tab if BP > 150/90 NIFEdipine 2022-0 Yes 30mg Take 1 [facility] rs ER 30 mg 1-05 tablet by ity of tablet 00:00: mouth [place] 00 every Medical morning. Branch levothyroxi 2022-0 Yes [id number] 150ug Take 1 [facility] ne 150 mcg 1-05 tablet by ity of tablet 00:00: mouth [place] 00 every Medical morning. Branch tamsulosin 2022-0 Yes [id number] .4mg Take 1 [facility] 0.4 mg 24 1-05 9102 capsule by ity of hr capsule 00:00: mouth in [place] as 00 the Medical morning. Branch budesonide 2022-0 Yes [id number] .5mg Inhale 2 [facility] 0.5 mg/2 mL 1-05 mL in the ity of nebulizer 00:00: morning [place] solution 00 and 2 mL Medical in the Branch evening. traZODone 2022-0 Yes [id number] 50mg Take 1 [facility] nivers 50 mg 1-05 tablet by ity of tablet 00:00: mouth at [place] 00 bedtime. Medical Branch glipiZIDE 2022-0 Yes [id number] 2.5mg Take 1 [facility] nivers XL 2.5 mg 1-05 tablet by ity o f 24 hr 00:00: mouth in [place] tablet 00 the Medical morning Branch and 1 tablet in the evening. arformotero 2022-0 Yes [id number] 15ug Use 2 mL [facility] L 15 mcg/2 1-05 as ity of mL 00:00: directed [place] nebulizer 00 in the Medical solution morning Branch and 2 mL in the evening. ipratropium 2022-0 Yes [id number] .5mg Inhale 2.5 [facility] 0.02 % 1-05 mL every 4 ity of nebulizer 00:00: (four) [place] solution 00 hours as Medical needed for Branch Wheezing or Shortness of Breath. cloNIDine 2022-0 Yes [id number] .2mg Take 1 [facility] nivers 0.2 mg [...] every Medical morning. Branch levothyroxi 2022-0 Yes [id number] 150ug Take 1 [facility] ne 150 mcg 1-05 tablet by ity of tablet 00:00: mouth [place] 00 every Medical morning. Branch tamsulosin 2022-0 Yes [id number] .4mg Take 1 [facility] 0.4 mg 24 1-05 9102 capsule by ity of hr capsule 00:00: mouth in [place] as 00 the Medical morning. Branch budesonide 2022-0 Yes [id number] .5mg Inhale 2 [facility] 0.5 mg/2 mL 1-05 mL in the ity of nebulizer 00:00: morning [place] solution 00 and 2 mL Medical in the Branch evening. traZODone 2022-0 Yes [id number] 50mg Take 1 [facility] nivers 50 mg 1-05 tablet by ity of tablet 00:00: mouth at [place] 00 bedtime. Medical Branch glipiZIDE 2022-0 Yes [id number] 2.5mg Take 1 [facility] nivers XL 2.5 mg 1-05 tablet by ity o f 24 hr 00:00: mouth in [place] tablet 00 the Medical morning Branch and 1 tablet in the evening. arformotero 2022-0 Yes [id number] 15ug Use 2 mL [facility] L 15 mcg/2 1-05 as ity of mL 00:00: directed [place] nebulizer 00 in the Medical solution morning Branch and 2 mL in the evening. ipratropium 2022-0 Yes [id number] .5mg Inhale 2.5 [facility] 0.02 % 1-05 mL every 4 ity of nebulizer 00:00: (four) [place] solution 00 hours as Medical needed for Branch Wheezing or Shortness of Breath. cloNIDine 2022-0 Yes [id number] .2mg Take 1 [facility] nivers 0.2 mg [...] every Medical morning. Branch levothyroxi 2022-0 Yes [id number] 150ug Take 1 [facility] ne 150 mcg 1-05 tablet by ity of tablet 00:00: mouth [place] 00 every Medical morning. Branch tamsulosin 2022-0 Yes [id number] .4mg Take 1 [facility] 0.4 mg 24 1-05 9102 capsule by ity of hr capsule 00:00: mouth in [place] as 00 the Medical morning. Branch budesonide 2022-0 Yes [id number] .5mg Inhale 2 [facility] 0.5 mg/2 mL 1-05 mL in the ity of nebulizer 00:00: morning [place] solution 00 and 2 mL Medical in the Branch evening. traZODone 2022-0 Yes [id number] 50mg Take 1 [facility] nivers 50 mg 1-05 tablet by [facility]y of tablet 00:00: mouth at [place] 00 bedtime. Medical Branch glipiZIDE 2022-0 Yes [id number] 2.5mg Take 1 [facility] nivers XL 2.5 mg 1-05 tablet by ity o f 24 hr 00:00: mouth in [place] tablet 00 the Medical morning Branch and 1 tablet in the evening. arformotero 2022-0 Yes [id number] 15ug Use 2 mL [facility] L 15 mcg/2 1-05 as ity of mL 00:00: directed [place] nebulizer 00 in the Medical solution morning Branch and 2 mL in the evening. ipratropium 2022-0 Yes [id number] .5mg Inhale 2.5 [facility] 0.02 % 1-05 mL every 4 ity of nebulizer 00:00: (four) [place] solution 00 hours as Medical needed for Branch Wheezing or Shortness of Breath. cloNIDine 2022-0 Yes [id number] .2mg Take 1 [facility] nivers 0.2 mg [...] every Medical morning. Branch levothyroxi 0 Yes [id number] 150ug Take 1 [facility] ne 150 mcg 1-05 tablet by ity of tablet 00:00: mouth [place] 00 every Medical morning. Branch tamsulosin 0 Yes [id number] .4mg Take 1 [facility] 0.4 mg 24 1-05 9102 capsule by ity of hr capsule 00:00: mouth in [place] as 00 the Medical morning. Branch budesonide 2022-0 Yes [id number] .5mg Inhale 2 [facility] 0.5 mg/2 mL 1-05 mL in the ity of nebulizer 00:00: morning [place] solution 00 and 2 mL Medical in the Branch evening. traZODone 2022-0 Yes [id number] 50mg Take 1 [facility] nivers 50 mg 1-05 tablet by ity of tablet 00:00: mouth at [place] 00 bedtime. Medical Branch glipiZIDE 2022-0 Yes [id number] 2.5mg Take 1 [facility] nivers XL 2.5 mg 1-05 tablet by ity o f 24 hr 00:00: mouth in [place] tablet 00 the Medical morning Branch and 1 tablet in the evening. arformotero 2022-0 Yes [id number] 15ug Use 2 mL [facility] L 15 mcg/2 1-05 as ity of mL 00:00: directed [place] nebulizer 00 in the Medical solution morning Branch and 2 mL in the evening. ipratropium 2022-0 Yes [id number] .5mg Inhale 2.5 [facility] 0.02 % 1-05 mL every 4 ity of nebulizer 00:00: (four) [place] solution 00 hours as Medical needed for Branch Wheezing or Shortness of Breath. cloNIDine 2022-0 Yes [id number] .2mg Take 1 [facility] nivers 0.2 mg 1-05 tablet by ity of tablet 00:00: mouth 3 [place] 00 (three) Medical times Branch daily as needed (Uncontrol led Hypertensi on). Take 1 Tab if BP > 150/90 NIFEdipine 2022-0 Yes 30mg Take 1 [facility] rs ER 30 mg 1-05 tablet by [facility]y of tablet 00:00: mouth [place] 00 every Medical morning. Branch levothyroxi 0 Yes [id number] 150ug Take 1 [facility] ne 150 mcg 1-05 tablet by ity of tablet 00:00: mouth [place] 00 every Medical morning. Branch tamsulosin Yes [id number] .4mg Take 1 [facility] 0.4 mg 24 1-05 9102 capsule by ity of hr capsule 00:00: mouth in [place] as 00 the Medical morning. Branch budesonide 0 Yes [id number] .5mg Inhale 2 [facility] 0.5 mg/2 mL 1-05 mL in the ity of nebulizer 00:00: morning [place] solution 00 and 2 mL Medical in the Branch evening. traZODone 0 Yes [id number] 50mg Take 1 [facility] nivers 50 mg 1-05 tablet by [facility]y of tablet 00:00: mouth at [place] 00 bedtime. Medical Branch glipiZIDE 0 Yes [id number] 2.5mg Take 1 [facility] nivers XL 2.5 mg 1-05 tablet by ity o f 24 hr 00:00: mouth in [place] tablet 00 the Medical morning Branch and 1 tablet in the evening. arformotero 2022-0 Yes [id number] 15ug Use 2 mL [facility] L 15 mcg/2 1-05 as ity of mL 00:00: directed [place] nebulizer 00 in the Medical solution morning Branch and 2 mL in the evening. ipratropium 2022-0 Yes [id number] .5mg Inhale 2.5 [facility] 0.02 % 1-05 mL every 4 ity of nebulizer 00:00: (four) [place] solution 00 hours as Medical needed for Branch Wheezing or Shortness of Breath. cloNIDine 2022-0 Yes [id number] .2mg Take 1 [facility] nivers 0.2 mg 1-05 tablet by [facility]y of tablet 00:00: mouth 3 [place] 00 (three) Medical times Branch daily as needed (Uncontrol led Hypertensi on). Take 1 Tab if BP > 150/90 NIFEdipine 2022-0 Yes 30mg Take 1 [facility] rs ER 30 mg 1-05 tablet by [facility] of tablet 00:00: mouth [place] 00 every Medical morning. Branch levothyroxi 2022-0 Yes [id number] 150ug Take 1 [facility] ne 150 mcg 1-05 tablet by ity of tablet 00:00: mouth [place] 00 every Medical morning. Branch tamsulosin 2022-0 Yes [id number] .4mg Take 1 [facility] 0.4 mg 24 1-05 9102 capsule by ity of hr capsule 00:00: mouth in [place] as 00 the Medical morning. Branch budesonide 2022-0 Yes [id number] .5mg Inhale 2 [facility] 0.5 mg/2 mL 1-05 mL in the ity of nebulizer 00:00: morning [place] solution 00 and 2 mL Medical in the Branch evening. traZODone 2022-0 Yes [id number] 50mg Take 1 [facility] nivers 50 mg 1-05 tablet by [facility]y of tablet 00:00: mouth at [place] 00 bedtime. Medical Branch glipiZIDE 2022-0 Yes [id number] 2.5mg Take 1 [facility] nivers XL 2.5 mg 1-05 tablet by ity o f 24 hr 00:00: mouth in [place] tablet 00 the Medical morning Branch and 1 tablet in the evening. arformotero 2022-0 Yes [id number] 15ug Use 2 mL [facility] L 15 mcg/2 1-05 as ity of mL 00:00: directed [place] nebulizer 00 in the Medical solution morning Branch and 2 mL in the evening. ipratropium 2022-0 Yes [id number] .5mg Inhale 2.5 [facility] 0.02 % 1-05 mL every 4 ity of nebulizer 00:00: (four) [place] solution 00 hours as Medical needed for Branch Wheezing or Shortness of Breath. cloNIDine 2022-0 Yes [id number] .2mg Take 1 [facility] nivers 0.2 mg 1-05 tablet by ity of tablet 00:00: mouth 3 [place] 00 (three) Medical times Branch daily as needed (Uncontrol led Hypertensi on). Take 1 Tab if BP > 150/90 NIFEdipine 2022-0 Yes 30mg Take 1 Un[facility] rs ER 30 mg 1-05 tablet by [facility]y of tablet 00:00: mouth [place] 00 every Medical morning. Branch levothyroxi 2022- Yes [id number] 150ug Take 1 [facility] ne 150 mcg 1-05 tablet by ity of tablet 00:00: mouth [place] 00 every Medical morning. Branch tamsulosin 0 Yes [id number] .4mg Take 1 [facility] 0.4 mg 24 1-05 9102 capsule by ity of hr capsule 00:00: mouth in [place] as 00 the Medical morning. Branch budesonide 0 Yes [id number] .5mg Inhale 2 [facility] 0.5 mg/2 mL 1-05 mL in the ity of nebulizer 00:00: morning [place] solution 00 and 2 mL Medical in the Branch evening. traZODone 2022-0 Yes [id number] 50mg Take 1 [facility] nivers 50 mg 1-05 tablet by [facility] of tablet 00:00: mouth at [place] 00 bedtime. Medical Branch glipiZIDE 0 Yes [id number] 2.5mg Take 1 U nivers XL 2.5 mg 1-05 tablet by ity o f 24 hr 00:00: mouth in [place] tablet 00 the Medical morning Branch and 1 tablet in the evening. arformotero 2022-0 Yes [id number] 15ug Use 2 mL [facility] L 15 mcg/2 1-05 as ity of mL 00:00: directed [place] nebulizer 00 in the Medical solution morning Branch and 2 mL in the evening. ipratropium 2022-0 Yes [id number] .5mg Inhale 2.5 [facility] 0.02 % 1-05 mL every 4 ity of nebulizer 00:00: (four) [place] solution 00 hours as Medical needed for Branch Wheezing or Shortness of Breath. cloNIDine 2022-0 Yes [id number] .2mg Take 1 U nivers 0.2 mg [...] every Medical morning. Branch levothyroxi 2022-0 Yes [id number] 150ug Take 1 [facility] ne 150 mcg 1-05 tablet by ity of tablet 00:00: mouth [place] 00 every Medical morning. Branch tamsulosin 2022-0 Yes [id number] .4mg Take 1 [facility] 0.4 mg 24 03-08 9102 capsule by ity of hr capsule 00:00: mouth in [place] as 00 the Medical morning. Branch budesonide 2022-0 Yes [id number] .5mg Inhale 2 [facility] 0.5 mg/2 mL 1-05 mL in the ity of nebulizer 00:00: morning [place] solution 00 and 2 mL Medical in the Branch evening. traZODone 2022-0 Yes [id number] 50mg Take 1 U nivers 50 mg 1-05 tablet by ity of tablet 00:00: mouth at [place] 00 bedtime. Medical Branch glipiZIDE 2022-0 Yes [id number] 2.5mg Take 1 U nivers XL 2.5 mg 1-05 tablet by ity o f 24 hr 00:00: mouth in [place] tablet 00 the Medical morning Branch and 1 tablet in the evening. arformotero 2022-0 Yes [id number] 15ug Use 2 mL [facility] L 15 mcg/2 1-05 as ity of mL 00:00: directed [place] nebulizer 00 in the Medical solution morning Branch and 2 mL in the evening. ipratropium 2022-0 Yes [id number] .5mg Inhale 2.5 [facility] 0.02 % 1-05 mL every 4 ity of nebulizer 00:00: (four) [place] solution 00 hours as Medical needed for Branch Wheezing or Shortness of Breath. cloNIDine 2022-0 Yes [id number] .2mg Take 1 U nivers 0.2 mg [...] every Medical morning. Branch levothyroxi 2022-0 Yes [id number] 150ug Take 1 [facility] ne 150 mcg 1-05 tablet by ity of tablet 00:00: mouth [place] 00 every Medical morning. Branch tamsulosin 2022-0 Yes [id number] .4mg Take 1 [facility] 0.4 mg 24 1-05 9102 capsule by ity of hr capsule 00:00: mouth in [place] as 00 the Medical morning. Branch budesonide Yes [id number] .5mg Inhale 2 [facility] 0.5 mg/2 mL 1-05 mL in the ity of nebulizer 00:00: morning [place] solution 00 and 2 mL Medical in the Branch evening. traZODone Yes [id number] 50mg Take 1 U nivers 50 mg 1-05 tablet by ity of tablet 00:00: mouth at [place] 00 bedtime. Medical Branch glipiZIDE Yes [id number] 2.5mg Take 1 U nivers XL 2.5 mg 1-05 tablet by ity o f 24 hr 00:00: mouth in [place] tablet 00 the Medical morning Branch and 1 tablet in the evening. arformotero Yes [id number] 15ug Use 2 mL [facility] L 15 mcg/2 1-05 as ity of mL 00:00: directed [place] nebulizer 00 in the Medical solution morning Branch and 2 mL in the evening. ipratropium Yes [id number] .5mg Inhale 2.5 [facility] 0.02 % 1-05 mL every 4 ity of nebulizer 00:00: (four) [place] solution 00 hours as Medical needed for Branch Wheezing or Shortness of Breath. cloNIDine Yes [id number] .2mg Take 1 U nivers 0.2 mg 1-05 tablet by ity of tablet 00:00: mouth 3 [place] 00 (three) Medical times Branch daily as needed (Uncontrol led Hypertensi on). Take 1 Tab if BP > 150/90 NIFEdipine 0 Yes 30mg Take 1 [facility] rs ER 30 mg 1-05 tablet by ity of tablet 00:00: mouth [place] 00 every Medical morning. Branch albuterol 2022- No [id number] 2{puff} Inhale 2 [facility] 90 1-05 09-08 Puffs ity of mcg/actuati 00:00: 00:00 every 6 [place] on inhaler 00 :00 (six) Medical hours as Branch needed for Wheezing or Shortness of Breath. albuterol 2022- No [id number] 2{puff} Inhale 2 [facility] 90 1-05 09-08 Puffs ity of mcg/actuati 00:00: 00:00 every 6 [place] on inhaler 00 :00 (six) Medical hours as Branch needed for Wheezing or Shortness of Breath. doxepin 25 2022- No [id number] 25mg Take 1 [facility] mg capsule 03-0818 capsule by it y of 00:00: 00:00 mouth at [place] 00 :00 bedtime. Medical Branch bumetanide 2022- No 1mg Take 1 [facility] ers 1 mg tablet 03-08 tablet by it y of 00:00: 00:00 mouth [place] 00 :00 every Medical morning Branch and evening. Indication s: reports kidney Dr Rx, ~2 mths ago NIFEdipine 2022- No [id number] 30mg Take 1 [facility] ER 30 mg 03-08 tablet by ity o f tablet 00:00: 00:00 mouth in [place] 00 :00 the Medical morning. Branch albuterol 2022- No [id number] 2.5mg Inhale 3 [facility] 2.5 mg /3 03-08-19 mL every 2 ity of mL (0.083 00:00: 00:00 (two) [place] %) 00 :00 hours as Medical nebulizer needed for Bran ch solution Shortness of Breath or Wheezing. ergocalcife 2021-03 Yes [id number] Take 1 [facility] rol, 2-14 capsule by ity of vitamin d2, 00:00: mouth [place] 1,250 mcg 00 weekly. Medical (50,000 Branch unit) capsule doxepin 25 2021-03 Yes [id number] 25mg Take 1 [facility] mg capsule 2-14 capsule by ity of 00:00: mouth at [place] 00 bedtime. Medical Branch hydrOXYzine 2021-03 Yes [id number] 25mg Take 1 [facility] 25 mg 2-14 capsule by ity of capsule 00:00: mouth 3 [place] 00 (three) Medical times Branch daily as needed for Itching. ergocalcife 2021-03 Yes [id number] Take 1 [facility] rol, 2-14 capsule by ity of vitamin d2, 00:00: mouth [place] 1,250 mcg 00 weekly. Medical (50,000 Branch unit) capsule doxepin 25 2021-03 Yes [id number] 25mg Take 1 [facility] mg capsule 2-14 capsule by ity of 00:00: mouth at [place] 00 bedtime. Medical Branch hydrOXYzine 2021-03 Yes [id number] 25mg Take 1 [facility] 25 mg 2-14 capsule by ity of capsule 00:00: mouth 3 [place] 00 (three) Medical times Branch daily as needed for Itching. ergocalcife 2021-03 Yes [id number] Take 1 [facility] rol, 2-14 capsule by ity of vitamin d2, 00:00: mouth [place] 1,250 mcg 00 weekly. Medical (50,000 Branch unit) capsule doxepin 25 2021-03 Yes [id number] 25mg Take 1 [facility] mg capsule 2-14 capsule by ity of 00:00: mouth at [place] 00 bedtime. Medical Branch hydrOXYzine 2021-03 Yes [id number] 25mg Take 1 [facility] 25 mg 2-14 capsule by ity of capsule 00:00: mouth 3 [place] 00 (three) Medical times Branch daily as needed for Itching. ergocalcife 2021-03 Yes [id number] Take 1 [facility] rol, 2-14 capsule by ity of vitamin d2, 00:00: mouth [place] 1,250 mcg 00 weekly. Medical (50,000 Branch unit) capsule doxepin 25 2021-03 Yes [id number] 25mg Take 1 [facility] mg capsule 2-14 capsule by ity of 00:00: mouth at [place] 00 bedtime. Medical Branch hydrOXYzine 2021-03 Yes [id number] 25mg Take 1 [facility] 25 mg 2-14 capsule by ity of capsule 00:00: mouth 3 [place] 00 (three) Medical times Branch daily as needed for Itching. ergocalcife 2021-03 Yes [id number] Take 1 [facility] rol, 2-14 capsule by ity of vitamin d2, 00:00: mouth [place] 1,250 mcg 00 weekly. Medical (50,000 Branch unit) capsule hydrOXYzine 2021-03 Yes [id number] 25mg Take 1 [facility] 25 mg 2-14 capsule by ity of capsule 00:00: mouth 3 [place] 00 (three) Medical times Branch daily as needed for Itching. ergocalcife 2021-03 Yes [id number] Take 1 [facility] rol, 2-14 capsule by ity of vitamin d2, 00:00: mouth [place] 1,250 mcg 00 weekly. Medical (50,000 Branch unit) capsule hydrOXYzine 2021-03 Yes [id number] 25mg Take 1 [facility] 25 mg 2-14 capsule by ity of capsule 00:00: mouth 3 [place] 00 (three) Medical times Branch daily as needed for Itching. ergocalcife 2021-03 Yes [id number] Take 1 [facility] rol, 2-14 capsule by ity of vitamin d2, 00:00: mouth [place] 1,250 mcg 00 weekly. Medical (50,000 Branch unit) capsule hydrOXYzine 2021-03 Yes [id number] 25mg Take 1 [facility] 25 mg 2-14 capsule by ity of capsule 00:00: mouth 3 [place] 00 (three) Medical times Branch daily as needed for Itching. ergocalcife 2021-03 Yes [id number] Take 1 [facility] rol, 2-14 capsule by ity of vitamin d2, 00:00: mouth [place] 1,250 mcg 00 weekly. Medical (50,000 Branch unit) capsule hydrOXYzine 2021-03 Yes [id number] 25mg Take 1 [facility] 25 mg 2-14 capsule by ity of capsule 00:00: mouth 3 [place] 00 (three) Medical times Branch daily as needed for Itching. ergocalcife 2021-03 Yes [id number] Take 1 [facility] rol, 2-14 capsule by ity of vitamin d2, 00:00: mouth [place] 1,250 mcg 00 weekly. Medical (50,000 Branch unit) capsule hydrOXYzine 2021-03 Yes [id number] 25mg Take 1 [facility] 25 mg 2-14 capsule by ity of capsule 00:00: mouth 3 [place] 00 (three) Medical times Branch daily as needed for Itching. ergocalcife 2021-03 Yes [id number] Take 1 [facility] rol, 2-14 capsule by ity of vitamin d2, 00:00: mouth [place] 1,250 mcg 00 weekly. Medical (50,000 Branch unit) capsule hydrOXYzine 2021-03 Yes [id number] 25mg Take 1 [facility] 25 mg 2-14 capsule by ity of capsule 00:00: mouth 3 [place] 00 (three) Medical times Branch daily as needed for Itching. ergocalcife 2021-03 Yes [id number] Take 1 [facility] rol, 2-14 capsule by ity of vitamin d2, 00:00: mouth [place] 1,250 mcg 00 weekly. Medical (50,000 Branch unit) capsule hydrOXYzine 2021-03 Yes [id number] 25mg Take 1 [facility] 25 mg 2-14 capsule by ity of capsule 00:00: mouth 3 [place] 00 (three) Medical times Branch daily as needed for Itching. ergocalcife 2021-03 Yes [id number] Take 1 [facility] rol, 2-14 capsule by ity of vitamin d2, 00:00: mouth [place] 1,250 mcg 00 weekly. Medical (50,000 Branch unit) capsule hydrOXYzine 2021-03 Yes [id number] 25mg Take 1 [facility] 25 mg 2-14 capsule by ity of capsule 00:00: mouth 3 [place] 00 (three) Medical times Branch daily as needed for Itching. ergocalcife 2021-03 Yes [id number] Take 1 [facility] rol, 2-14 capsule by ity of vitamin d2, 00:00: mouth [place] 1,250 mcg 00 weekly. Medical (50,000 Branch unit) capsule hydrOXYzine 2021-03 Yes [id number] 25mg Take 1 [facility] 25 mg 2-14 capsule by ity of capsule 00:00: mouth 3 [place] 00 (three) Medical times Branch daily as needed for Itching. ergocalcife 2021-03 Yes [id number] Take 1 [facility] rol, 2-14 capsule by ity of vitamin d2, 00:00: mouth [place] 1,250 mcg 00 weekly. Medical (50,000 Branch unit) capsule hydrOXYzine 2021-03 Yes [id number] 25mg Take 1 [facility] 25 mg 2-14 capsule by ity of capsule 00:00: mouth 3 [place] 00 (three) Medical times Branch daily as needed for Itching. ergocalcife 2021-03 Yes [id number] Take 1 [facility] rol, 2-14 capsule by ity of vitamin d2, 00:00: mouth [place] 1,250 mcg 00 weekly. Medical (50,000 Branch unit) capsule hydrOXYzine 2021-03 Yes [id number] 25mg Take 1 [facility] 25 mg 2-14 capsule by ity of capsule 00:00: mouth 3 [place] 00 (three) Medical times Branch daily as needed for Itching. ergocalcife 2021-03 Yes [id number] Take 1 [facility] rol, 2-14 capsule by ity of vitamin d2, 00:00: mouth [place] 1,250 mcg 00 weekly. Medical (50,000 Branch unit) capsule hydrOXYzine 2021-03 Yes [id number] 25mg Take 1 [facility] 25 mg 2-14 capsule by ity of capsule 00:00: mouth 3 [place] 00 (three) Medical times Branch daily as needed for Itching. ergocalcife 2021-03 Yes [id number] Take 1 [facility] rol, 2-14 capsule by ity of vitamin d2, 00:00: mouth [place] 1,250 mcg 00 weekly. Medical (50,000 Branch unit) capsule hydrOXYzine 2021-03 Yes [id number] 25mg Take 1 [facility] 25 mg 2-14 capsule by ity of capsule 00:00: mouth 3 [place] 00 (three) Medical times Branch daily as needed for Itching. ergocalcife 2021-03 Yes [id number] Take 1 [facility] rol, 2-14 capsule by ity of vitamin d2, 00:00: mouth [place] 1,250 mcg 00 weekly. Medical (50,000 Branch unit) capsule hydrOXYzine 2021-03 Yes [id number] 25mg Take 1 [facility] 25 mg 2-14 capsule by ity of capsule 00:00: mouth 3 [place] 00 (three) Medical times Branch daily as needed for Itching. ergocalcife 2021-03 Yes [id number] Take 1 [facility] rol, 2-14 capsule by ity of vitamin d2, 00:00: mouth [place] 1,250 mcg 00 weekly. Medical (50,000 Branch unit) capsule hydrOXYzine 2021-03 Yes [id number] 25mg Take 1 [facility] 25 mg 2-14 capsule by ity of capsule 00:00: mouth 3 [place] 00 (three) Medical times Branch daily as needed for Itching. ergocalcife 2021-03 Yes [id number] Take 1 [facility] rol, 2-14 capsule by ity of vitamin d2, 00:00: mouth [place] 1,250 mcg 00 weekly. Medical (50,000 Branch unit) capsule hydrOXYzine 2021-03 Yes [id number] 25mg Take 1 [facility] 25 mg 2-14 capsule by ity of capsule 00:00: mouth 3 [place] 00 (three) Medical times Branch daily as needed for Itching. ergocalcife 2021-03 Yes [id number] Take 1 [facility] rol, 2-14 capsule by ity of vitamin d2, 00:00: mouth [place] 1,250 mcg 00 weekly. Medical (50,000 Branch unit) capsule hydrOXYzine 2021-03 Yes [id number] 25mg Take 1 [facility] 25 mg 2-14 capsule by ity of capsule 00:00: mouth 3 [place] 00 (three) Medical times Branch daily as needed for Itching. ergocalcife 2021-03 Yes [id number] Take 1 [facility] rol, 2-14 capsule by ity of vitamin d2, 00:00: mouth [place] 1,250 mcg 00 weekly. Medical (50,000 Branch unit) capsule hydrOXYzine 2021-03 Yes [id number] 25mg Take 1 [facility] 25 mg 2-14 capsule by ity of capsule 00:00: mouth 3 [place] 00 (three) Medical times Branch daily as needed for Itching. ergocalcife 2021-03 Yes [id number] Take 1 [facility] rol, 2-14 capsule by ity of vitamin d2, 00:00: mouth [place] 1,250 mcg 00 weekly. Medical (50,000 Branch unit) capsule hydrOXYzine 2021-03 Yes [id number] 25mg Take 1 [facility] 25 mg 2-14 capsule by ity of capsule 00:00: mouth 3 [place] 00 (three) Medical times Branch daily as needed for Itching. ergocalcife 2021-03 Yes [id number] Take 1 [facility] rol, 2-14 capsule by ity of vitamin d2, 00:00: mouth [place] 1,250 mcg 00 weekly. Medical (50,000 Branch unit) capsule hydrOXYzine 2021-03 Yes [id number] 25mg Take 1 [facility] 25 mg 2-14 capsule by ity of capsule 00:00: mouth 3 [place] 00 (three) Medical times Branch daily as needed for Itching. ergocalcife 2021-03 Yes [id number] Take 1 [facility] rol, 2-14 capsule by ity of vitamin d2, 00:00: mouth [place] 1,250 mcg 00 weekly. Medical (50,000 Branch unit) capsule hydrOXYzine 2021-03 Yes [id number] 25mg Take 1 [facility] 25 mg 2-14 capsule by ity of capsule 00:00: mouth 3 [place] 00 (three) Medical times Branch daily as needed for Itching. ergocalcife 2021-03 Yes [id number] Take 1 [facility] rol, 2-14 capsule by ity of vitamin d2, 00:00: mouth [place] 1,250 mcg 00 weekly. Medical (50,000 Branch unit) capsule hydrOXYzine 2021-03 Yes [id number] 25mg Take 1 [facility] 25 mg 2-14 capsule by ity of capsule 00:00: mouth 3 [place] 00 (three) Medical times Branch daily as needed for Itching. ergocalcife 2021-03 Yes [id number] Take 1 [facility] rol, 2-14 capsule by ity of vitamin d2, 00:00: mouth [place] 1,250 mcg 00 weekly. Medical (50,000 Branch unit) capsule hydrOXYzine 2021-03 Yes [id number] 25mg Take 1 [facility] 25 mg 2-14 capsule by ity of capsule 00:00: mouth 3 [place] 00 (three) Medical times Branch daily as needed for Itching. ergocalcife 2021-03 Yes [id number] Take 1 [facility] rol, 2-14 capsule by ity of vitamin d2, 00:00: mouth [place] 1,250 mcg 00 weekly. Medical (50,000 Branch unit) capsule hydrOXYzine 2021-03 Yes [id number] 25mg Take 1 [facility] 25 mg 2-14 capsule by ity of capsule 00:00: mouth 3 [place] 00 (three) Medical times Branch daily as needed for Itching. ergocalcife 2021-03 Yes [id number] Take 1 [facility] rol, 2-14 capsule by ity of vitamin d2, 00:00: mouth [place] 1,250 mcg 00 weekly. Medical (50,000 Branch unit) capsule hydrOXYzine 2021-03 Yes [id number] 25mg Take 1 [facility] 25 mg 2-14 capsule by ity of capsule 00:00: mouth 3 [place] 00 (three) Medical times Branch daily as needed for Itching. ergocalcife 2021-03 Yes [id number] Take 1 [facility] rol, 2-14 capsule by ity of vitamin d2, 00:00: mouth [place] 1,250 mcg 00 weekly. Medical (50,000 Branch unit) capsule hydrOXYzine 2021-03 Yes [id number] 25mg Take 1 [facility] 25 mg 2-14 capsule by ity of capsule 00:00: mouth 3 [place] 00 (three) Medical times Branch daily as needed for Itching. hydrOXYzine 2021-03 Yes [id number] 25mg Take 1 [facility] 25 mg 2-14 capsule by ity of capsule 00:00: mouth 3 (three) Medical times Branch daily as needed for Itching. hydrOXYzine 2021-03 Yes [id number] 25mg Take 1 [facility] 25 mg 2-14 capsule by ity of capsule 00:00: mouth 3 (three) Medical times Branch daily as needed for Itching. hydrOXYzine 2021-03 Yes [id number] 25mg Take 1 [facility] 25 mg 2-14 capsule by ity of capsule 00:00: mouth (three) Medical times Branch daily as needed for Itching. hydrOXYzine 2021-03 Yes [id number] 25mg Take 1 [facility] 25 mg 2-14 capsule by ity of capsule 00:00: mouth (three) Medical times Branch daily as needed for Itching. hydrOXYzine 2021-03 Yes [id number] 25mg Take 1 [facility] 25 mg 2-14 capsule by ity of capsule 00:00: mouth (three) Medical times Branch daily as needed for Itching. hydrOXYzine 2021-03 Yes [id number] 25mg Take 1 [facility] 25 mg 2-14 capsule by ity of capsule 00:00: mouth (three) Medical times Branch daily as needed for Itching. hydrOXYzine 2021-03 Yes [id number] 25mg Take 1 [facility] 25 mg 2-14 capsule by ity of capsule 00:00: mouth (three) Medical times Branch daily as needed for Itching. hydrOXYzine 2021-03 Yes [id number] 25mg Take 1 [facility] 25 mg 2-14 capsule by ity of capsule 00:00: mouth (three) Medical times Branch daily as needed for Itching. hydrOXYzine 2021-03 Yes [id number] 25mg Take 1 [facility] 25 mg 2-14 capsule by ity of capsule 00:00: mouth (three) Medical times Branch daily as needed for Itching. hydrOXYzine 2021-03 Yes [id number] 25mg Take 1 [facility] 25 mg 2-14 capsule by ity of capsule 00:00: mouth 3 (three) Medical times Branch daily as needed for Itching. hydrOXYzine 2021-03 Yes [id number] 25mg Take 1 [facility] 25 mg 2-14 capsule by ity of capsule 00:00: mouth (three) Medical times Branch daily as needed for Itching. hydrOXYzine 2021-03 Yes [id number] 25mg Take 1 [facility] 25 mg 2-14 capsule by ity of capsule 00:00: mouth 3 [place] (three) Medical times Branch daily as needed for Itching. hydrOXYzine 2021- Yes [id number] 25mg Take 1 [facility] 25 mg 2-14 capsule by ity of capsule 00:00: mouth 3 [place] (three) Medical times Branch daily as needed for Itching. hydrOXYzine 2021-03 Yes [id number] 25mg Take 1 [facility] 25 mg 2-14 capsule by ity of capsule 00:00: mouth 3 [place] (three) Medical times Branch daily as needed for Itching. hydrOXYzine 2021-03 Yes [id number] 25mg Take 1 [facility] 25 mg 2-14 capsule by ity of capsule 00:00: mouth 3 [place] (three) Medical times Branch daily as needed for Itching. hydrOXYzine 2021-03 Yes [id number] 25mg Take 1 [facility] 25 mg 2-14 capsule by ity of capsule 00:00: mouth [place] (three) Medical times Branch daily as needed for Itching. hydrOXYzine 2021-03 Yes [id number] 25mg Take 1 [facility] 25 mg 2-14 capsule by ity of capsule 00:00: mouth 3 [place] (three) Medical times Branch daily as needed for Itching. hydrOXYzine 2021-03 Yes [id number] 25mg Take 1 [facility] 25 mg 2-14 capsule by ity of capsule 00:00: mouth 3 [place] (three) Medical times Branch daily as needed for Itching. hydrOXYzine 2021- Yes [id number] 25mg Take 1 [facility] 25 mg 2-14 capsule by ity of capsule 00:00: mouth 3 [place] (three) Medical times Branch daily as needed for Itching. hydrOXYzine 2021- Yes [id number] 25mg Take 1 [facility] 25 mg 2-14 capsule by ity of capsule 00:00: mouth 3 [place] (three) Medical times Branch daily as needed for Itching. hydrOXYzine 2021- 2023- No [id number] 25mg Take 1 [facility] 25 mg 2-14 08-08 capsule by ity of capsule 00:00: 00:00 mouth 3 [place] 00 :00 (three) Medical times Branch daily as needed for Itching. hydrOXYzine 2021-03- No [id number] 25mg Take 1 [facility] 25 mg -15 10- capsule by ity of capsule 00:00: 00:00 mouth 3 [place] 00 :00 (three) Medical times Branch daily as needed for Itching. ergocalcife 2021-03- No [id number] Take 1 [facility] rol, 2-15 06- capsule by ity of vitamin d2, 00:00: 00:00 mouth [place] 1,250 mcg 00 :00 weekly. Medical (50,000 Branch unit) capsule ergocalcife 2021-03- No [id number] Take 1 [facility] rol, 2-15 06- capsule by ity of vitamin d2, 00:00: 00:00 mouth [place] 1,250 mcg 00 :00 weekly. Medical (50,000 Branch unit) capsule doxepin 25 2021-03- No [id number] 25mg Take 1 [facility] mg capsule 04-17- capsule by it y of 00:00: 00:00 mouth at [place] 00 :00 bedtime. Medical Branch doxepin 25 2021-03- No [id number] 25mg Take 1 [facility] mg capsule -17 03- capsule by it y of 00:00: 00:00 mouth at [place] 00 :00 bedtime. Medical Branch doxepin 25 2021-03- No [id number] 25mg Take 1 [facility] mg capsule -17 03- capsule by it y of 00:00: 00:00 mouth at [place] 00 :00 bedtime. Medical Branch doxepin 25 2021-03- No [id number] 25mg Take 1 [facility] mg capsule 2-14 - capsule by it y of 00:00: 00:00 mouth at [place] 00 :00 bedtime. Medical Branch benzonatate 2021-03 Yes [id number] 100mg Take 1 [facility] (TESSALON 2-13 capsule by itJerel) 100 00:00: mouth [place] mg capsule 00 every 8 Medica l (eight) Branch hours as needed for Cough. benzonatate 2021-03 Yes [id number] 100mg Take 1 [facility] (TESSALON 2-13 capsule by itrohan of BRAD) 100 00:00: mouth [place] mg capsule 00 every 8 Medica l (eight) Branch hours as needed for Cough. benzonatate 2021-03 Yes [id number] 100mg Take 1 [facility] (TESSALON 2-13 capsule by ity of PERLES) 100 00:00: mouth [place] mg capsule 00 every 8 Medica l (eight) Branch hours as needed for Cough. benzonatate 2021-03 Yes [id number] 100mg Take 1 [facility] (TESSALON 2-13 capsule by ity of PERLES) 100 00:00: mouth [place] mg capsule 00 every 8 Medica l (eight) Branch hours as needed for Cough. benzonatate 2021-03 Yes [id number] 100mg Take 1 [facility] (TESSALON 2-13 capsule by ity of PERLES) 100 00:00: mouth [place] mg capsule 00 every 8 Medica l (eight) Branch hours as needed for Cough. benzonatate 2021-03 Yes [id number] 100mg Take 1 [facility] (TESSALON 2-13 capsule by ity of PERLES) 100 00:00: mouth [place] mg capsule 00 every 8 Medica l (eight) Branch hours as needed for Cough. benzonatate 2021-03 Yes [id number] 100mg Take 1 [facility] (TESSALON 2-13 capsule by ity of PERLES) 100 00:00: mouth [place] mg capsule 00 every 8 Medica l (eight) Branch hours as needed for Cough. benzonatate 2021-03 Yes [id number] 100mg Take 1 [facility] (TESSALON 2-13 capsule by ity of PERLES) 100 00:00: mouth [place] mg capsule 00 every 8 Medica l (eight) Branch hours as needed for Cough. benzonatate 2021-03- No [id number] 100mg Take 1 [facility] (TESSALON 2-13 01-08 capsule by ity of PERLES) 100 00:00: 00:00 mouth [place] mg capsule 00 :00 every 8 Medica l (eight) Branch hours as needed for Cough. benzonatate 2021-03- No [id number] 100mg Take 1 [facility] (TESSALON 2-13 01-08 capsule by ity of PERLES) 100 00:00: 00:00 mouth [place] mg capsule 00 :00 every 8 Medica l (eight) Branch hours as needed for Cough. benzonatate 2021-03- No [id number] 100mg Take 1 [facility] (TESSALON 2-13 -08 capsule by ity of BRAD) 100 00:00: [...] 2745 1{tbl} Take 1 U nivers en-codeine 1-27 -31 tablet by ity of (TYLENOL-CO 00:00: 00:00 mouth [place] DEINE #3) 00 :00 every 6 Medical 300-30 mg (six) Branch tablet hours as needed for Pain (scale 7-10). Indication s: acute pain, chronic pain acetaminoph 2021-2022- No 2745 1{tbl} Take 1 U nivers en-codeine 1-27 -31 tablet by ity of (TYLENOL-CO 00:00: 00:00 mouth [place] DEINE #3) 00 :00 every 6 Medical 300-30 mg (six) Branch tablet hours as needed for Pain (scale 7-10). Indication s: acute pain, chronic pain acetaminoph 2021-2022- No 2745 1{tbl} Take 1 U nivers en-codeine 03-30 tablet by ity of (TYLENOL-CO 00:00: 00:00 mouth [place] DEINE #3) 00 :00 every 6 Medical 300-30 mg (six) Branch tablet hours as needed for Pain (scale 7-10). Indication s: acute pain, chronic pain acetaminoph 2021-03 No 2745 1{tbl} Take 1 U nivers en-codeine 03-30 tablet by ity of (TYLENOL-CO 00:00: 00:00 mouth [place] DEINE #3) 00 :00 every 6 Medical 300-30 mg (six) Branch tablet hours as needed for Pain (scale 7-10). Indication s: acute pain, chronic pain acetaminoph 2021-03 No 2745 1{tbl} Take 1 U nivers en-codeine 03-30 tablet by ity of (TYLENOL-CO 00:00: 00:00 mouth [place] DEINE #3) 00 :00 every 6 Medical 300-30 mg (six) Branch tablet hours as needed for Pain (scale 7-10). Indication s: acute pain, chronic pain acetaminoph 2021-03 No 2745 1{tbl} Take 1 U nivers en-codeine 03-30 [...] acute pain, chronic pain benzonatate 2021-03 Yes [id number] 100mg Take 1 [facility] (TESSALON 1-25 capsule by ity of BRAD) 100 00:00: mouth [place] mg capsule 00 every 8 Medica l (eight) Branch hours as needed for Cough. benzonatate 2021-03 Yes [id number] 100mg Take 1 [facility] (TESSALON 1-25 capsule by ity of PERLES) 100 00:00: mouth [place] mg capsule 00 every 8 Medica l (eight) Branch hours as needed for Cough. benzonatate 2021-03 Yes [id number] 100mg Take 1 [facility] (TESSALON 1-25 capsule by ity of PERLES) 100 00:00: mouth [place] mg capsule 00 every 8 Medica l (eight) Branch hours as needed for Cough. benzonatate 2021-03 Yes [id number] 100mg Take 1 [facility] (TESSALON 1-25 capsule by ity of PERLES) 100 00:00: mouth [place] mg capsule 00 every 8 [facility] ([facility]) Branch hours as needed for Cough. benzonatate 2021-03 Yes [id number] 100mg Take 1 [facility] ([facility]ESS[facility] 1-25 capsule by [facility]) 100 00:00: mouth [place] mg capsule 00 every 8 [facility] (eight) Branch hours as needed for Cough. benzonatate 2021-03- No [id number] 100mg Take 1 [facility] (TESSALON 1-25 12-12 capsule by [facility] [place]) 100 00:00: 00:[place] capsule 00 :00 every 8 [facility] (eight) Branch hours as needed for Cough. hydrOXYzine 2021-03 Yes [id number] 25mg Take 1 [facility] 25 mg 1-17 capsule by [facility] capsule 00:00: mouth 3 [place] 00 (three) Medical times Branch daily as needed for Itching. hydrOXYzine 2021-03 Yes [id number] 25mg Take 1 [facility] 25 mg 1-17 capsule by [facility] of capsule 00:00: mouth 3 [place] 00 (three) Medical times Branch daily as needed for Itching. hydrOXYzine 2021-03 Yes [id number] 25mg Take 1 [facility] 25 mg 1-17 capsule by [facility] of capsule 00:00: mouth 3 [place] 00 (three) Medical times Branch daily as needed for Itching. hydrOXYzine 2021-03 Yes [id number] 25mg Take 1 [facility] 25 mg 1-17 capsule by [facility] of capsule 00:00: mouth 3 [place] 00 (three) Medical times Branch daily as needed for Itching. hydrOXYzine 2021-03 Yes [id number] 25mg Take 1 [facility] 25 mg 1-17 capsule by [facility] of capsule 00:00: mouth 3 [place] 00 (three) Medical times Branch daily as needed for Itching. hydrOXYzine 2021-03 Yes [id number] 25mg Take 1 [facility] 25 mg 1-17 capsule by [facility] of capsule 00:00: mouth 3 [place] 00 (three) Medical times Branch daily as needed for Itching. hydrOXYzine 2021-03 Yes [id number] 25mg Take 1 [facility] 25 mg 1-17 capsule by [facility] of capsule 00:00: mouth 3 [place] 00 (three) Medical times Branch daily as needed for Itching. hydrOXYzine 2021-03 Yes [id number] 25mg Take 1 [facility] 25 mg 1-17 capsule by [facility] of capsule 00:00: mouth 3 [place] 00 (three) Medical times Branch daily as needed for Itching. hydrOXYzine 2021-03- No [id number] 25mg Take 1 [facility] 25 mg 1-17 12-12 capsule by [facility] of capsule 00:00: 00:00 mouth 3 [place] 00 :00 (three) Medical times Branch daily as needed for Itching. pravastatin 2021-03 Yes [id number] 40mg Take 1 [facility] 40 mg 1-11 tablet by [facility] of tablet 00:00: mouth at [place] [address] bedtime. Medical Branch pravastatin 2021-03 Yes [id number] 40mg Take 1 [facility] 40 mg 1-11 tablet by [facility] of tablet 00:00: mouth at [place] [address] bedtime. Medical Branch pravastatin 2021-03 Yes [id number] 40mg Take 1 [facility] 40 mg 1-11 tablet by [facility] of tablet 00:00: mouth at [place] [address] bedtime. Medical Branch pravastatin 2021-03 Yes [id number] 40mg Take 1 [facility] 40 mg 1-11 tablet by [facility] of tablet 00:00: mouth at [place] [address] bedtime. Medical Branch pravastatin 2021-03 Yes [id number] 40mg Take 1 [facility] 40 mg 1-11 tablet by [facility] of tablet 00:00: mouth at [place] [address] bedtime. [facility] pravastatin 2021-03 Yes [id number] 40mg Take 1 [facility] 40 mg 1-11 tablet by ity of tablet 00:00: mouth at [place] [address] bedtime. Medical Branch pravastatin 2021-03 Yes [id number] 40mg Take 1 [facility] 40 mg 1-11 tablet by ity of tablet 00:00: mouth at [place] [address] bedtime. Medical Branch pravastatin 2021-03 Yes [id number] 40mg Take 1 [facility] 40 mg 1-11 tablet by ity of tablet 00:00: mouth at [place] [address] bedtime. Medical Branch pravastatin 2021-03 Yes [id number] 40mg Take 1 [facility] 40 mg 1-11 tablet by ity of tablet 00:00: mouth at [place] [address] bedtime. Medical Branch pravastatin 2021-03 Yes [id number] 40mg Take 1 [facility] 40 mg 1-11 tablet by it[facility] of tablet 00:00: mouth at [place] [address] bedtime. Medical Branch pravastatin 2021-03 Yes [id number] 40mg Take 1 [facility] 40 mg 1-11 tablet by it[facility] of tablet 00:00: mouth at [place] [address] bedtime. Medical Branch pravastatin 2021-03 Yes [id number] 40mg Take 1 [facility] 40 mg 1-11 tablet by it[facility] of tablet 00:00: mouth at [place] [address] bedtime. Medical Branch pravastatin 2021-03 Yes [id number] 40mg Take 1 [facility] 40 mg 1-11 tablet by [facility] of tablet 00:00: mouth at [place] [address] bedtime. Medical Branch pravastatin 2021-03 Yes [id number] 40mg Take 1 [facility] 40 mg 1-11 tablet by [facility] of tablet 00:00: mouth at [place] [address] bedtime. Medical Branch pravastatin 2021-03 Yes [id number] 40mg Take 1 [facility] 40 mg 1-11 tablet by it[facility] of tablet 00:00: mouth at [place] [address] bedtime. Medical Branch pravastatin 2021-03 Yes [id number] 40mg Take 1 [facility] 40 mg 1-11 tablet by it[facility] of tablet 00:00: mouth at [place] [address] bedtime. Medical Branch pravastatin 2021-03 Yes [id number] 40mg Take 1 [facility] 40 mg 1-11 tablet by it[facility] of tablet 00:00: mouth at [place] [address] bedtime. Medical Branch pravastatin 2021-03 Yes [id number] 40mg Take 1 [facility] 40 mg 1-11 tablet by it[facility] of tablet 00:00: mouth at [place] [address] bedtime. Medical Branch pravastatin 2021-03 Yes [id number] 40mg Take 1 [facility] 40 mg 1-11 tablet by it[facility] of tablet 00:00: mouth at [place] [address] bedtime. Medical Branch pravastatin 2021-03 Yes [id number] 40mg Take 1 [facility] 40 mg 1-11 tablet by it[facility] of tablet 00:00: mouth at [place] [address] bedtime. Medical Branch pravastatin 2021-03 Yes [id number] 40mg Take 1 [facility] 40 mg 1-11 tablet by it[facility] of tablet 00:00: mouth at [place] [address] bedtime. Medical Branch pravastatin 2021-03 Yes [id number] 40mg Take 1 [facility] 40 mg 1-11 tablet by it[facility] of tablet 00:00: mouth at [place] [address] bedtime. Medical Branch pravastatin 2021-03 Yes [id number] 40mg Take 1 [facility] 40 mg 1-11 tablet by ity of tablet 00:00: mouth at [place] [address] bedtime. Medical Branch pravastatin 2021-03 Yes [id number] 40mg Take 1 [facility] 40 mg 1-11 tablet by ity of tablet 00:00: mouth at [place] [address] bedtime. Medical Branch pravastatin 2021-03 Yes [id number] 40mg Take 1 [facility] 40 mg 1-11 tablet by it[facility] of tablet 00:00: mouth at [place] [address] bedtime. Medical Branch pravastatin 2021-03 Yes [id number] 40mg Take 1 [facility] 40 mg 1-11 tablet by it[facility] of tablet 00:00: mouth at [place] [address] bedtime. Medical Branch pravastatin 2021-03 Yes [id number] 40mg Take 1 [facility] 40 mg 1-11 tablet by ity of tablet 00:00: mouth at [place] [address] bedtime. Medical Branch pravastatin 2021-03 Yes [id number] 40mg Take 1 [facility] 40 mg 1-11 tablet by ity of tablet 00:00: mouth at [place] [address] bedtime. Medical Branch pravastatin 2021-03 Yes [id number] 40mg Take 1 [facility] 40 mg 1-11 tablet by ity of tablet 00:00: mouth at [place] [address] bedtime. Medical Branch pravastatin 2021-03 Yes [id number] 40mg Take 1 [facility] 40 mg 1-11 tablet by ity of tablet 00:00: mouth at [place] [address] bedtime. Medical Branch pravastatin 2021-03 Yes [id number] 40mg Take 1 [facility] 40 mg 1-11 tablet by ity of tablet 00:00: mouth at [place] [address] bedtime. Medical Branch pravastatin 2021-03 Yes [id number] 40mg Take 1 [facility] 40 mg 1-11 tablet by ity of tablet 00:00: mouth at [place] [address] bedtime. Medical Branch pravastatin 2021-03 Yes [id number] 40mg Take 1 [facility] 40 mg 1-11 tablet by ity of tablet 00:00: mouth at [place] [address] bedtime. Medical Branch pravastatin 2021-03 Yes [id number] 40mg Take 1 [facility] 40 mg 1-11 tablet by ity of tablet 00:00: mouth at [place] [address] bedtime. Medical Branch pravastatin 2021-03 Yes [id number] 40mg Take 1 [facility] 40 mg 1-11 tablet by ity of tablet 00:00: mouth at [place] [address] bedtime. Medical Branch pravastatin 2021-03 Yes [id number] 40mg Take 1 [facility] 40 mg 1-11 tablet by ity of tablet 00:00: mouth at [place] [address] bedtime. Medical Branch pravastatin 2021-03 Yes [id number] 40mg Take 1 [facility] 40 mg 1-11 tablet by ity of tablet 00:00: mouth at [place] [address] bedtime. Medical Branch pravastatin 2021-03 Yes [id number] 40mg Take 1 [facility] 40 mg 1-11 tablet by it[facility] of tablet 00:00: mouth at [place] [address] bedtime. Medical Branch pravastatin 2021-03 Yes [id number] 40mg Take 1 [facility] 40 mg 1-11 tablet by it[facility] of tablet 00:00: mouth at [place] [address] bedtime. Medical Branch pravastatin 2021-03 Yes [id number] 40mg Take 1 [facility] 40 mg 1-11 tablet by it[facility] of tablet 00:00: mouth at [place] [address] bedtime. Medical Branch pravastatin 2021-03 Yes [id number] 40mg Take 1 [facility] 40 mg 1-11 tablet by ity of tablet 00:00: mouth at [place] [address] bedtime. Medical Branch pravastatin 2021-03 Yes [id number] 40mg Take 1 [facility] 40 mg 1-11 tablet by ity of tablet 00:00: mouth at [place] [address] bedtime. Medical Branch pravastatin 2021-03 Yes [id number] 40mg Take 1 [facility] 40 mg 1-11 tablet by ity of tablet 00:00: mouth at [place] [address] bedtime. Medical Branch pravastatin 2021-03 Yes [id number] 40mg Take 1 [facility] 40 mg 1-11 tablet by ity of tablet 00:00: mouth at [place] [address] bedtime. Medical Branch pravastatin 2021-03 Yes [id number] 40mg Take 1 [facility] 40 mg 1-11 tablet by ity of tablet 00:00: mouth at [place] [address] bedtime. Medical Branch pravastatin 2021-03 Yes [id number] 40mg Take 1 [facility] 40 mg 1-11 tablet by ity of tablet 00:00: mouth at [place] [address] bedtime. Medical Branch pravastatin 2021-03 Yes [id number] 40mg Take 1 [facility] 40 mg 1-11 tablet by ity of tablet 00:00: mouth at [place] [address] bedtime. Medical Branch pravastatin 2021-03 Yes [id number] 40mg Take 1 [facility] 40 mg 1-11 tablet by ity of tablet 00:00: mouth at [place] [address] bedtime. Medical Branch pravastatin 2021-03 Yes [id number] 40mg Take 1 [facility] 40 mg 1-11 tablet by ity of tablet 00:00: mouth at [place] [address] bedtime. Medical Branch pravastatin 2021-03 Yes [id number] 40mg Take 1 [facility] 40 mg 1-11 tablet by ity of tablet 00:00: mouth at [place] [address] bedtime. Medical Branch pravastatin 2021-03 Yes [id number] 40mg Take 1 [facility] 40 mg 1-11 tablet by ity of tablet 00:00: mouth at [place] [address] bedtime. Medical Branch pravastatin 2021-03 Yes [id number] 40mg Take 1 [facility] 40 mg 1-11 tablet by ity of tablet 00:00: mouth at [place] [address] bedtime. Medical Branch pravastatin 2021-03 Yes [id number] 40mg Take 1 [facility] 40 mg 1-11 tablet by ity of tablet 00:00: mouth at [place] [address] bedtime. Medical Branch pravastatin 2021-03 Yes [id number] 40mg Take 1 [facility] 40 mg 1-11 tablet by ity of tablet 00:00: mouth at [place] [address] bedtime. Medical Branch pravastatin 2021-03 Yes [id number] 40mg Take 1 [facility] 40 mg 1-11 tablet by ity of tablet 00:00: mouth at [place] [address] bedtime. Medical Branch pravastatin 2021-03 Yes [id number] 40mg Take 1 [facility] 40 mg 1-11 tablet by ity of tablet 00:00: mouth at [place] [address] bedtime. Medical Branch pravastatin 2021-03 Yes [id number] 40mg Take 1 [facility] 40 mg 1-11 tablet by ity of tablet 00:00: mouth at [place] [address] bedtime. Medical Branch pravastatin 2021-03 Yes [id number] 40mg Take 1 [facility] 40 mg 1-11 tablet by ity of tablet 00:00: mouth at [place] [address] bedtime. Medical Branch pravastatin 2021-03 Yes [id number] 40mg Take 1 [facility] 40 mg 1-11 tablet by ity of tablet 00:00: mouth at [place] [address] bedtime. Medical Branch pravastatin 2021-03 Yes [id number] 40mg Take 1 [facility] 40 mg 1-11 tablet by ity of tablet 00:00: mouth at [place] [address] bedtime. Medical Branch pravastatin 2021-03 Yes [id number] 40mg Take 1 [facility] 40 mg 1-11 tablet by ity of tablet 00:00: mouth at [place] [address] bedtime. Medical Branch pravastatin 2021-03 Yes [id number] 40mg Take 1 [facility] 40 mg 1-11 tablet by ity of tablet 00:00: mouth at [place] [address] bedtime. Medical Branch pravastatin 2021-03 Yes [id number] 40mg Take 1 [facility] 40 mg 1-11 tablet by ity of tablet 00:00: mouth at [place] [address] bedtime. Medical Branch pravastatin 2021-03 Yes [id number] 40mg Take 1 [facility] 40 mg 1-11 tablet by ity of tablet 00:00: mouth at [place] [address] bedtime. Medical Branch pravastatin 2021-03 Yes [id number] 40mg Take 1 [facility] 40 mg 1-11 tablet by ity of tablet 00:00: mouth at [place] [address] bedtime. Medical Branch pravastatin 2021-03 Yes [id number] 40mg Take 1 [facility] 40 mg 1-11 tablet by ity of tablet 00:00: mouth at [place] [address] bedtime. Medical Branch pravastatin 2021-03 Yes [id number] 40mg Take 1 [facility] 40 mg 1-11 tablet by ity of tablet 00:00: mouth at [place] [address] bedtime. Medical Branch pravastatin 2021-03 Yes [id number] 40mg Take 1 [facility] 40 mg 1-11 tablet by ity of tablet 00:00: mouth at [place] [address] bedtime. Medical Branch pravastatin 2021-03 Yes [id number] 40mg Take 1 [facility] 40 mg 1-11 tablet by ity of tablet 00:00: mouth at [place] [address] bedtime. Medical Branch pravastatin 2021-03 Yes [id number] 40mg Take 1 [facility] 40 mg 1-11 tablet by ity of tablet 00:00: mouth at [place] [address] bedtime. Medical Branch pravastatin 2021-03 Yes [id number] 40mg Take 1 [facility] 40 mg 1-11 tablet by ity of tablet 00:00: mouth at [place] [address] bedtime. Medical Branch pravastatin 2021-03 Yes [id number] 40mg Take 1 [facility] 40 mg 1-11 tablet by ity of tablet 00:00: mouth at [place] [address] bedtime. Medical Branch pravastatin 2021-03 Yes [id number] 40mg Take 1 [facility] 40 mg 1-11 tablet by ity of tablet 00:00: mouth at [place] [address] bedtime. Medical Branch pravastatin 2021-03 Yes [id number] 40mg Take 1 [facility] 40 mg 1-11 tablet by ity of tablet 00:00: mouth at [place] [address] bedtime. Medical Branch pravastatin 2021-03 Yes [id number] 40mg Take 1 [facility] 40 mg 1-11 tablet by ity of tablet 00:00: mouth at [place] [address] bedtime. Medical Branch pravastatin 2021-03 Yes [id number] 40mg Take 1 [facility] 40 mg 1-11 tablet by ity of tablet 00:00: mouth at [place] [address] bedtime. Medical Branch pravastatin 2021-03 Yes [id number] 40mg Take 1 [facility] 40 mg 1-11 tablet by ity of tablet 00:00: mouth at [place] [address] bedtime. Medical Branch pravastatin 2021-03 Yes [id number] 40mg Take 1 [facility] 40 mg 1-11 tablet by ity of tablet 00:00: mouth at [place] [address] bedtime. Medical Branch pravastatin 2021-03 Yes [id number] 40mg Take 1 [facility] 40 mg 1-11 tablet by ity of tablet 00:00: mouth at [place] [address] bedtime. Medical Branch pravastatin 2021-03 Yes [id number] 40mg Take 1 [facility] 40 mg 1-11 tablet by ity of tablet 00:00: mouth at [place] [address] bedtime. Medical Branch pravastatin 2021-03 Yes [id number] 40mg Take 1 [facility] 40 mg 1-11 tablet by ity of tablet 00:00: mouth at [place] [address] bedtime. Medical Branch pravastatin 2021-03 Yes [id number] 40mg Take 1 [facility] 40 mg 1-11 tablet by ity of tablet 00:00: mouth at [place] [address] bedtime. Medical Branch pravastatin 2021-03 Yes [id number] 40mg Take 1 [facility] 40 mg 1-11 tablet by ity of tablet 00:00: mouth at [place] [address] bedtime. Medical Branch pravastatin 2021-03 Yes [id number] 40mg Take 1 [facility] 40 mg 1-11 tablet by ity of tablet 00:00: mouth at [place] [address] bedtime. Medical Branch pravastatin 2021-03 Yes [id number] 40mg Take 1 [facility] 40 mg 1-11 tablet by ity of tablet 00:00: mouth at [place] [address] bedtime. Medical Branch pravastatin 2021-03 Yes [id number] 40mg Take 1 [facility] 40 mg 1-11 tablet by ity of tablet 00:00: mouth at [place] [address] bedtime. Medical Branch pravastatin 2021-03 Yes [id number] 40mg Take 1 [facility] 40 mg 1-11 tablet by ity of tablet 00:00: mouth at [place] [address] bedtime. Medical Branch pravastatin 2021-03 Yes [id number] 40mg Take 1 [facility] 40 mg 1-11 tablet by ity of tablet 00:00: mouth at [place] [address] bedtime. Medical Branch pravastatin 2021-03 Yes [id number] 40mg Take 1 [facility] 40 mg 1-11 tablet by ity of tablet 00:00: mouth at [place] [address] bedtime. Medical Branch pravastatin 2021-03 Yes [id number] 40mg Take 1 [facility] 40 mg 1-11 tablet by ity of tablet 00:00: mouth at [place] [address] bedtime. Medical Branch pravastatin 2021-03 Yes [id number] 40mg Take 1 [facility] 40 mg 1-11 tablet by ity of tablet 00:00: mouth at [place] [address] bedtime. Medical Branch pravastatin 2021-03 Yes [id number] 40mg Take 1 [facility] 40 mg 1-11 tablet by ity of tablet 00:00: mouth at [place] [address] bedtime. Medical Branch pravastatin 2021-03 Yes [id number] 40mg Take 1 [facility] 40 mg 1-11 tablet by ity of tablet 00:00: mouth at [place] [address] bedtime. Medical Branch pravastatin 2021-03 Yes [id number] 40mg Take 1 [facility] 40 mg 1-11 tablet by ity of tablet 00:00: mouth at [place] [address] bedtime. Medical Branch pravastatin 2021-03 Yes [id number] 40mg Take 1 [facility] 40 mg 1-11 tablet by ity of tablet 00:00: mouth at [place] [address] bedtime. Medical Branch pravastatin 2021-03 Yes [id number] 40mg Take 1 [facility] 40 mg 1-11 tablet by ity of tablet 00:00: mouth at [place] [address] bedtime. Medical Branch pravastatin 2021-03 Yes [id number] 40mg Take 1 [facility] 40 mg 1-11 tablet by ity of tablet 00:00: mouth at [place] [address] bedtime. Medical Branch pravastatin 2021-03 Yes [id number] 40mg Take 1 [facility] 40 mg 1-11 tablet by ity of tablet 00:00: mouth at [place] [address] bedtime. Medical Branch pravastatin 2021-03 Yes [id number] 40mg Take 1 [facility] 40 mg 1-11 tablet by ity of tablet 00:00: mouth at [place] [address] bedtime. Medical Branch pravastatin 2021-03 Yes [id number] 40mg Take 1 [facility] 40 mg 1-11 tablet by ity of tablet 00:00: mouth at [place] [address] bedtime. Medical Branch pravastatin 2021-03 Yes [id number] 40mg Take 1 [facility] 40 mg 1-11 tablet by ity of tablet 00:00: mouth at [place] [address] bedtime. Medical Branch pravastatin 2021-03 Yes [id number] 40mg Take 1 [facility] 40 mg 1-11 tablet by ity of tablet 00:00: mouth at [place] [address] bedtime. Medical Branch pravastatin 2021-03 Yes [id number] 40mg Take 1 [facility] 40 mg 1-11 tablet by ity of tablet 00:00: mouth at [place] [address] bedtime. Medical Branch pravastatin 2021-03 Yes [id number] 40mg Take 1 [facility] 40 mg 1-11 tablet by ity of tablet 00:00: mouth at [place] [address] bedtime. [facility] Branch pravastatin 2021-03 Yes [id number] 40mg Take 1 [facility] 40 mg 1-11 tablet by ity of tablet 00:00: mouth at [place] [address] bedtime. [facility] Branch pravastatin 2021-03 Yes [id number] 40mg Take 1 [facility] 40 mg 1-11 tablet by ity of tablet 00:00: mouth at [place] [address] bedtime. [facility] Branch pravastatin 2021-03 Yes [id number] 40mg Take 1 [facility] 40 mg 1-11 tablet by ity of tablet 00:00: mouth at [place] 00 bedtime. [facility] Branch pravastatin 2021-03 Yes [id number] 40mg Take 1 [facility] 40 mg 1-11 tablet by ity of tablet 00:00: mouth at [place] 00 bedtime. [facility] Branch pravastatin 2021-03 Yes [id number] 40mg Take 1 [facility] 40 mg 1-11 tablet by ity of tablet 00:00: mouth at [place] 00 bedtime. [facility] Branch pravastatin 2021-03 Yes [id number] 40mg Take 1 [facility] 40 mg 1-11 tablet by ity of tablet 00:00: mouth at [place] 00 bedtime. [facility] Branch pravastatin 2021-03 Yes [id number] 40mg Take 1 [facility] 40 mg 1-11 tablet by ity of tablet 00:00: mouth at [place] [address] bedtime. [facility] Branch doxepin 25 2021-03 Yes [id number] 25mg Take 1 [facility] mg capsule 1-09 capsule by ity of 00:00: mouth at [place] [address] bedtime. [facility] Branch doxepin 2021-03 Yes [id number] 25mg Take 1 [facility] mg capsule 1-09 capsule by ity of 00:00: mouth at [place] [address] bedtime. [facility] Branch doxepin 2021-03 Yes [id number] 25mg Take 1 [facility] mg capsule 1-09 capsule by ity of 00:00: mouth at [place] [address] bedtime. [facility] Branch doxepin 25 2021-03 Yes [id number] 25mg Take 1 [facility] mg capsule 1-09 capsule by ity of 00:00: mouth at [place] [address] bedtime. [facility] Branch doxepin 25 2021-03 Yes [id number] 25mg Take 1 [facility] mg capsule 1-09 capsule by ity of 00:00: mouth at [place] [address] bedtime. [facility] Branch doxepin 25 2021-03 Yes [id number] 25mg Take 1 [facility] mg capsule 1-09 capsule by ity of 00:00: mouth at [place] 00 bedtime. [facility] Branch doxepin 25 2021-03 Yes [id number] 25mg Take 1 [facility] mg capsule 1-09 capsule by ity of 00:00: mouth at [place] 00 bedtime. [facility] Branch doxepin 25 2021-03 Yes [id number] 25mg Take 1 [facility] mg capsule 1-09 capsule by ity of 00:00: mouth at [place] 00 bedtime. [facility] Branch doxepin 25 2021-03 Yes [id number] 25mg Take 1 [facility] mg capsule 1-09 capsule by ity of 00:00: mouth at [place] 00 bedtime. [facility] Branch doxepin 25 2021-03 Yes [id number] 25mg Take 1 [facility] mg capsule 1-09 capsule by ity of 00:00: mouth at [place] 00 bedtime. [facility] Branch doxepin 25 2021-03 Yes [id number] 25mg Take 1 [facility] mg capsule 1-09 capsule by ity of 00:00: mouth at [place] 00 bedtime. [facility] Branch doxepin 25 2021-03- No [id number] 25mg Take 1 [facility] mg capsule -09 -12 capsule by it y of 00:00: 00:00 mouth at [place] 00 :00 bedtime. Medical Branch bumetanide 2021-03 Yes 1mg Take 1 mg Un renetta 1 mg tablet 1-07 by mouth ity of 09:58: in the [place] [address] morning. Medical Indication Branch s: reports kidney Dr Rx, ~2 mths ago bumetanide 2021-03 Yes 1mg Take 1 mg Un renetta 1 mg tablet 1-07 by mouth ity of 09:58: in the [place] [address] morning. Medical Indication Branch s: reports kidney Dr Rx, ~2 mths ago bumetanide 2021-03 Yes 1mg Take 1 mg Un renetta 1 mg tablet 1-07 by mouth ity of 09:58: in the [place] [address] morning. Medical Indication Branch s: reports kidney Dr Rx, ~2 mths ago bumetanide 2021-03 Yes 1mg Take 1 mg Un renetta 1 mg tablet 1-07 by mouth ity of 09:58: in the [place] [address] morning. Medical Indication Branch s: reports kidney Dr Rx, ~2 mths ago bumetanide 2021-03 Yes 1mg Take 1 mg Un renetta 1 mg tablet 1-07 by mouth ity of 09:58: in the [place] [address] morning. Medical Indication Branch s: reports kidney Dr Rx, ~2 mths ago bumetanide 2021-03 Yes 1mg Take 1 mg Un renetta 1 mg tablet 1-07 by mouth ity of 09:58: in the [place] [address] morning. Medical Indication Branch s: reports kidney Dr Rx, ~2 mths ago bumetanide 2021-03 Yes 1mg Take 1 mg Un renetta 1 mg tablet 1-07 by mouth ity of 09:58: in the [place] [address] morning. Medical Indication Branch s: reports kidney Dr Rx, ~2 mths ago bumetanide 2021-03 Yes 1mg Take 1 mg Un renetta 1 mg tablet 1-07 by mouth ity of 09:58: in the [place] [address] morning. Medical Indication Branch s: reports kidney Dr Rx, ~2 mths ago bumetanide 2021-03 Yes 1mg Take 1 mg Un renetta 1 mg tablet 1-07 by mouth ity of 09:58: in the [place] [address] morning. Medical Indication Branch s: reports kidney Dr Rx, ~2 mths ago bumetanide 2021-03 Yes 1mg Take 1 mg Un renetta 1 mg tablet 1-07 by mouth ity of 09:58: in the [place] [address] morning. Medical Indication Branch s: reports kidney Dr Rx, ~2 mths ago bumetanide 2021-03 Yes 1mg Take 1 mg Un renetta 1 mg tablet 1-07 by mouth ity of 09:58: in the [place] [address] morning. Medical Indication Branch s: reports kidney Dr Rx, ~2 mths ago bumetanide 2021-03 Yes 1mg Take 1 mg Un renetta 1 mg tablet 1-07 by mouth ity of 09:58: in the [place] [address] morning. Medical Indication Branch s: reports kidney Dr Rx, ~2 mths ago bumetanide 2021-03 Yes 1mg Take 1 mg Un renetta 1 mg tablet 1-07 by mouth ity of 09:58: in the [place] [address] morning. Medical Indication Branch s: reports kidney Dr Rx, ~2 mths ago bumetanide 2021-03 Yes 1mg Take 1 mg Un renetta 1 mg tablet 1-07 by mouth ity of 09:58: in the [place] [address] morning. Medical Indication Branch s: reports kidney Dr Rx, ~2 mths ago bumetanide 2021-03 Yes 1mg Take 1 mg Un renetta 1 mg tablet 1-07 by mouth ity of 09:58: in the [place] [address] morning. Medical Indication Branch s: reports kidney Dr Rx, ~2 mths ago bumetanide 2021-03 Yes 1mg Take 1 mg Un renetta 1 mg tablet 1-07 by mouth ity of 09:58: in the [place] 16 morning. Medical Indication Branch s: reports kidney Dr Rx, ~2 mths ago bumetanide 2021-03 Yes 1mg Take 1 mg Un renetta 1 mg tablet 1-07 by mouth ity of 09:58: in the [place] 16 morning. Medical Indication Branch s: reports kidney Dr Rx, ~2 mths ago bumetanide 2021-03 Yes 1mg Take 1 mg Un renetta 1 mg tablet 1-07 by mouth ity of 09:58: in the [place] 16 morning. Medical Indication Branch s: reports kidney Dr Rx, ~2 mths ago bumetanide 2021-03 Yes 1mg Take 1 mg Un renetta 1 mg tablet 1-07 by mouth ity of 09:58: in the [place] 16 morning. Medical Indication Branch s: reports kidney Dr Rx, ~2 mths ago baclofen 2021-03 Yes [id number] 10mg Take 1 [facility] mg tablet 1-02 tablet by ity o f 00:00: mouth 3 [place] 00 (three) Medical times Branch daily as needed for Pain (scale 7-10). baclofen 2021-03 Yes [id number] 10mg Take 1 [facility] mg tablet 1-02 tablet by ity o f 00:00: mouth 3 [place] 00 (three) Medical times Branch daily as needed for Pain (scale 7-10). benzonatate 2021-03 Yes [id number] 100mg Take 1 [facility] (TESSALON 1-02 capsule by [facility] of [facility]LES) 100 00:00: mouth [place] mg capsule 00 every 8 Medica l (eight) Branch hours as needed for Cough. baclofen 2021-03 Yes [id number] 10mg Take 1 [facility] mg tablet 1-02 tablet by ity o f 00:00: mouth 3 [place] 00 (three) Medical times Branch daily as needed for Pain (scale 7-10). benzonatate 2021-03 Yes [id number] 100mg Take 1 [facility] (TESSALON 1-02 capsule by [facility] of [facility]) 100 00:00: mouth [place] mg capsule 00 every 8 Medica l (eight) Branch hours as needed for Cough. baclofen 2021-03 Yes [id number] 10mg Take 1 [facility] mg tablet 1-02 tablet by ity o f 00:00: mouth 3 [place] 00 (three) Medical times Branch daily as needed for Pain (scale 7-10). benzonatate 2021-03 Yes [id number] 100mg Take 1 [facility] (TESSALON 1-02 capsule by [facility] of PERLES) 100 00:00: mouth [place] mg capsule 00 every 8 Medica l (eight) Branch hours as needed for Cough. baclofen 2021-03 Yes [id number] 10mg Take 1 [facility] mg tablet 1-02 tablet by ity o f 00:00: mouth 3 [place] 00 (three) Medical times Branch daily as needed for Pain (scale 7-10). benzonatate 2021-03 Yes [id number] 100mg Take 1 [facility] (TESSALON 1-02 capsule by [facility] of PERLES) 100 00:00: mouth [place] mg capsule 00 every 8 Medica l (eight) Branch hours as needed for Cough. baclofen 2021-03 Yes [id number] 10mg Take 1 [facility] mg tablet 1-02 tablet by ity o f 00:00: mouth 3 [place] 00 (three) Medical times Branch daily as needed for Pain (scale 7-10). benzonatate 2021-03 Yes [id number] 100mg Take 1 [facility] (TESSALON 1-02 capsule by [facility] of [facility]) 100 00:00: mouth [place] mg capsule 00 every 8 Medica l (eight) Branch hours as needed for Cough. baclofen 2021-03 Yes [id number] 10mg Take 1 [facility] mg tablet 1-02 tablet by ity o f 00:00: mouth 3 [place] 00 (three) Medical times Branch daily as needed for Pain (scale 7-10). benzonatate 2021-03 Yes [id number] 100mg Take 1 [facility] (TESSALON 1-02 capsule by [facility] of [facility]) 100 00:00: mouth [place] mg capsule 00 every 8 Medica l (eight) Branch hours as needed for Cough. baclofen 2021-03 Yes [id number] 10mg Take 1 [facility] mg tablet 1-02 tablet by ity o f 00:00: mouth 3 [place] 00 (three) Medical times Branch daily as needed for Pain (scale 7-10). benzonatate 2021-03 Yes [id number] 100mg Take 1 [facility] (TESSALON 1-02 capsule by [facility] of [facility]) 100 00:00: mouth [place] mg capsule 00 every 8 Medica l (eight) Branch hours as needed for Cough. baclofen 2021-03 Yes [id number] 10mg Take 1 [facility] mg tablet 1-02 tablet by ity o f 00:00: mouth 3 [place] 00 (three) Medical times Branch daily as needed for Pain (scale 7-10). baclofen 2021-03 Yes [id number] 10mg Take 1 [facility] mg tablet 1-02 tablet by ity o f 00:00: mouth 3 [place] 00 (three) Medical times Branch daily as needed for Pain (scale 7-10). baclofen 2021-03 Yes [id number] 10mg Take 1 [facility] mg tablet 1-02 tablet by ity o f 00:00: mouth 3 [place] 00 (three) Medical times Branch daily as needed for Pain (scale 7-10). baclofen 2021-03 Yes [id number] 10mg Take 1 [facility] mg tablet 1-02 tablet by it[facility] o f 00:00: mouth 3 [place] 00 (three) Medical times Branch daily as needed for Pain (scale 7-10). baclofen 2021-03 Yes [id number] 10mg Take 1 [facility] mg tablet 1-02 tablet by ity o f 00:00: mouth 3 [place] 00 (three) Medical times Branch daily as needed for Pain (scale 7-10). baclofen 2021-03 Yes [id number] 10mg Take 1 [facility] mg tablet 1-02 tablet by ity o f 00:00: mouth 3 [place] 00 (three) Medical times Branch daily as needed for Pain (scale 7-10). baclofen 2021-03 Yes [id number] 10mg Take 1 [facility] mg tablet 1-02 tablet by ity o f 00:00: mouth 3 [place] 00 (three) Medical times Branch daily as needed for Pain (scale 7-10). baclofen 2021-03 Yes [id number] 10mg Take 1 [facility] mg tablet 1-02 tablet by ity o f 00:00: mouth 3 [place] 00 (three) Medical times Branch daily as needed for Pain (scale 7-10). baclofen 2021-03 Yes [id number] 10mg Take 1 [facility] mg tablet 1-02 tablet by ity o f 00:00: mouth 3 [place] 00 (three) Medical times Branch daily as needed for Pain (scale 7-10). baclofen 2021-03 Yes [id number] 10mg Take 1 [facility] mg tablet 1-02 tablet by ity o f 00:00: mouth 3 [place] 00 (three) Medical times Branch daily as needed for Pain (scale 7-10). baclofen 2021-03 Yes [id number] 10mg Take 1 [facility] mg tablet 1-02 tablet by ity o f 00:00: mouth 3 [place] 00 (three) Medical times Branch daily as needed for Pain (scale 7-10). baclofen 2021-03 Yes [id number] 10mg Take 1 [facility] mg tablet 1-02 tablet by [facility]y o f 00:00: mouth 3 [place] 00 (three) Medical times Branch daily as needed for Pain (scale 7-10). baclofen 2021-03 Yes [id number] 10mg Take 1 [facility] mg tablet 1-02 tablet by ity o f 00:00: mouth 3 [place] 00 (three) Medical times Branch daily as needed for Pain (scale 7-10). baclofen 2021-03 Yes [id number] 10mg Take 1 [facility] mg tablet 1-02 tablet by ity o f 00:00: mouth 3 00 (three) Medical times Branch daily as needed for Pain (scale 7-10). baclofen 2021-03 Yes [id number] 10mg Take 1 [facility] mg tablet 1-02 tablet by [facility]y o f 00:00: mouth 3 00 (three) Medical times Branch daily as needed for Pain (scale 7-10). baclofen 2021-03 Yes [id number] 10mg Take 1 [facility] mg tablet 1-02 tablet by [facility]y o f 00:00: mouth 3 00 (three) Medical times Branch daily as needed for Pain (scale 7-10). baclofen 2021-03 Yes [id number] 10mg Take 1 [facility] mg tablet 1-02 tablet by ity o f 00:00: mouth 3 [place] 00 (three) Medical times Branch daily as needed for Pain (scale 7-10). baclofen 2021-03 Yes [id number] 10mg Take 1 [facility] mg tablet 1-02 tablet by it[facility] o f 00:00: mouth 3 [place] 00 (three) Medical times Branch daily as needed for Pain (scale 7-10). baclofen 2021-03 Yes [id number] 10mg Take 1 [facility] mg tablet 1-02 tablet by [facility]y o f 00:00: mouth 3 00 (three) Medical times Branch daily as needed for Pain (scale 7-10). baclofen 2021-03 Yes [id number] 10mg Take 1 [facility] mg tablet 1-02 tablet by [facility] o f 00:00: mouth 3 00 (three) Medical times Branch daily as needed for Pain (scale 7-10). baclofen 2021-03 Yes [id number] 10mg Take 1 [facility] mg tablet 1-02 tablet by [facility]y o f 00:00: mouth 3 (three) Medical times Branch daily as needed for Pain (scale 7-10). baclofen 2021-03 Yes [id number] 10mg Take 1 [facility] mg tablet 1-02 tablet by [facility] o f 00:00: mouth 3 (three) Medical times Branch daily as needed for Pain (scale 7-10). baclofen 2021-03 Yes [id number] 10mg Take 1 [facility] mg tablet 1-02 tablet by [facility]y o f 00:00: mouth (three) Medical times Branch daily as needed for Pain (scale 7-10). baclofen 2021-03 Yes [id number] 10mg Take 1 [facility] mg tablet 1-02 tablet by [facility]y o f 00:00: mouth 3 (three) Medical times Branch daily as needed for Pain (scale 7-10). baclofen 2021-03 Yes [id number] 10mg Take 1 [facility] mg tablet 1-02 tablet by [facility] o f 00:00: mouth 3 (three) Medical times Branch daily as needed for Pain (scale 7-10). baclofen 2021-03 Yes [id number] 10mg Take 1 [facility] mg tablet 1-02 tablet by [facility] o f 00:00: mouth 3 (three) Medical times Branch daily as needed for Pain (scale 7-10). baclofen 2021-03 Yes [id number] 10mg Take 1 [facility] mg tablet 1-02 tablet by [facility]y o f 00:00: mouth 3 (three) Medical times Branch daily as needed for Pain (scale 7-10). baclofen 2021-03 Yes [id number] 10mg Take 1 [facility] mg tablet 1-02 tablet by [facility]y o f 00:00: mouth 3 (three) Medical times Branch daily as needed for Pain (scale 7-10). baclofen 2021-03 Yes [id number] 10mg Take 1 [facility] mg tablet 1-02 tablet by [facility] o f 00:00: mouth 3 [place] 00 (three) Medical times Branch daily as needed for Pain (scale 7-10). baclofen 2021-03 Yes [id number] 10mg Take 1 [facility] mg tablet 1-02 tablet by [facility]y o f 00:00: mouth 3 00 (three) Medical times Branch daily as needed for Pain (scale 7-10). baclofen 2021-03 Yes [id number] 10mg Take 1 [facility] mg tablet 1-02 tablet by [facility]y o f 00:00: mouth 3 00 (three) Medical times Branch daily as needed for Pain (scale 7-10). baclofen 2021-03 Yes [id number] 10mg Take 1 [facility] mg tablet 1-02 tablet by [facility]y o f 00:00: mouth 3 (three) Medical times Branch daily as needed for Pain (scale 7-10). baclofen 2021-03 Yes [id number] 10mg Take 1 [facility] mg tablet 1-02 tablet by [facility] o f 00:00: mouth 3 00 (three) Medical times Branch daily as needed for Pain (scale 7-10). baclofen 2021-03 Yes [id number] 10mg Take 1 [facility] mg tablet 1-02 tablet by [facility] o f 00:00: mouth 3 00 (three) Medical times Branch daily as needed for Pain (scale 7-10). baclofen 2021-03 Yes [id number] 10mg Take 1 [facility] mg tablet 1-02 tablet by [facility] o f 00:00: mouth 3 (three) Medical times Branch daily as needed for Pain (scale 7-10). baclofen 2021-03 Yes [id number] 10mg Take 1 [facility] mg tablet 1-02 tablet by [facility] o f 00:00: mouth 3 00 (three) Medical times Branch daily as needed for Pain (scale 7-10). baclofen 2021-03 Yes [id number] 10mg Take 1 [facility] mg tablet 1-02 tablet by [facility] o f 00:00: mouth 3 00 (three) Medical times Branch daily as needed for Pain (scale 7-10). baclofen 2021-03 Yes [id number] 10mg Take 1 [facility] mg tablet 1-02 tablet by [facility]y o f 00:00: mouth 3 00 (three) Medical times Branch daily as needed for Pain (scale 7-10). baclofen 2021-03 Yes [id number] 10mg Take 1 [facility] mg tablet 1-02 tablet by [facility]y o f 00:00: mouth 3 00 (three) Medical times Branch daily as needed for Pain (scale 7-10). baclofen 2021-03 Yes [id number] 10mg Take 1 [facility] mg tablet 1-02 tablet by ity o f 00:00: mouth 3 [place] 00 (three) Medical times Branch daily as needed for Pain (scale 7-10). baclofen 2021-03 Yes [id number] 10mg Take 1 [facility] mg tablet 1-02 tablet by ity o f 00:00: mouth 3 00 (three) Medical times Branch daily as needed for Pain (scale 7-10). baclofen 2021-03- No [id number] 10mg Take 1 [facility] mg tablet -04 07- tablet by [facility]y of 00:00: 00:00 mouth 3 [place] 00 :00 (three) Medical times Branch daily as needed for Pain (scale 7-10). baclofen 2021-03- No [id number] 10mg Take 1 [facility] mg tablet -04 07- tablet by [facility] of 00:00: 00:00 mouth 3 [place] 00 :00 (three) Medical times Branch daily as needed for Pain (scale 7-10). benzonatate 2021-03- No [id number] 100mg Take 1 [facility] (TESSALON 03-05-23 capsule by [facility] of BRAD) 100 00:00: [...] 2-1 Yes [id number] 1{tbl} Take 1 [facility] en-codeine 0-24 tablet by ity of (TYLENOL-CO [...] s: acute pain, chronic pain albuterol Yes [id number] 2.5mg Inhale 3 [facility] 2.5 mg /3 9-29 mL every 2 ity of mL (0.083 00:00: (two) [place] %) 00 hours as Medical nebulizer needed for Bran ch solution Shortness of Breath or Wheezing. ipratropium 2-0 Yes [id number] .5mg Inhale 2.5 [facility] 0.02 % 9-29 [...] in the Branch evening. albuterol 2022-0 Yes [id number] 2.5mg Inhale 3 [facility] 2.5 mg /3 9-29 mL every 2 ity of mL (0.083 00:00: (two) [place] %) 00 hours as Medical nebulizer needed for Bran ch solution Shortness of Breath or Wheezing. ipratropium 2-0 Yes [id number] .5mg Inhale 2.5 [facility] 0.02 % 9-29 [...] in the Branch evening. albuterol 2022-0 Yes [id number] 2.5mg Inhale 3 [facility] 2.5 mg /3 9-29 mL every 2 ity of mL (0.083 00:00: (two) [place] %) 00 hours as Medical nebulizer needed for Bran ch solution Shortness of Breath or Wheezing. ipratropium 2022-0 Yes [id number] .5mg Inhale 2.5 [facility] 0.02 % 9-29 [...] in the Branch evening. albuterol 2-0 Yes [id number] 2.5mg Inhale 3 [facility] 2.5 mg /3 9-29 mL every 2 ity of mL (0.083 00:00: (two) [place] %) 00 hours as Medical nebulizer needed for Bran ch solution Shortness of Breath or Wheezing. ipratropium 2-0 Yes [id number] .5mg Inhale 2.5 [facility] 0.02 % 9-29 [...] in the Branch evening. albuterol 2022-0 Yes [id number] 2.5mg Inhale 3 [facility] 2.5 mg /3 9-29 mL every 2 ity of mL (0.083 00:00: (two) [place] %) 00 hours as Medical nebulizer needed for Bran ch solution Shortness of Breath or Wheezing. ipratropium 2022-0 Yes [id number] .5mg Inhale 2.5 [facility] 0.02 % 9-29 [...] in the Branch evening. albuterol 2-0 Yes [id number] 2.5mg Inhale 3 [facility] 2.5 mg /3 9-29 mL every 2 ity of mL (0.083 00:00: (two) [place] %) 00 hours as Medical nebulizer needed for Bran ch solution Shortness of Breath or Wheezing. ipratropium 2021-0 Yes [id number] .5mg Inhale 2.5 [facility] 0.02 % 9-29 [...] in the Branch evening. albuterol 2-0 Yes [id number] 2.5mg Inhale 3 [facility] 2.5 mg /3 9-29 mL every 2 ity of mL (0.083 00:00: (two) [place] %) 00 hours as Medical nebulizer needed for Bran ch solution Shortness of Breath or Wheezing. ipratropium 2-0 Yes [id number] .5mg Inhale 2.5 [facility] 0.02 % 9-29 [...] in the Branch evening. albuterol 2021-0 Yes [id number] 2.5mg Inhale 3 [facility] 2.5 mg /3 9-29 mL every 2 ity of mL (0.083 00:00: (two) [place] %) 00 hours as Medical nebulizer needed for Bran ch solution Shortness of Breath or Wheezing. ipratropium 2021-0 Yes [id number] .5mg Inhale 2.5 [facility] 0.02 % 9-29 [...] in the Branch evening. albuterol 2021-0 Yes [id number] 2.5mg Inhale 3 [facility] 2.5 mg /3 9-29 mL every 2 ity of mL (0.083 00:00: (two) [place] %) 00 hours as Medical nebulizer needed for Bran ch solution Shortness of Breath or Wheezing. ipratropium 2-0 Yes [id number] .5mg Inhale 2.5 [facility] 0.02 % 9-29 [...] in the Branch evening. albuterol 2-0 Yes [id number] 2.5mg Inhale 3 [facility] 2.5 mg /3 9-29 mL every 2 ity of mL (0.083 00:00: (two) [place] %) 00 hours as Medical nebulizer needed for Bran ch solution Shortness of Breath or Wheezing. ipratropium 2022-0 Yes [id number] .5mg Inhale 2.5 [facility] 0.02 % 9-29 [...] in the Branch evening. albuterol 2-0 Yes [id number] 2.5mg Inhale 3 [facility] 2.5 mg /3 9-29 mL every 2 ity of mL (0.083 00:00: (two) [place] %) 00 hours as Medical nebulizer needed for Bran ch solution Shortness of Breath or Wheezing. ipratropium 2022-0 Yes [id number] .5mg Inhale 2.5 [facility] 0.02 % 9-29 [...] in the Branch evening. albuterol 2022-0 Yes [id number] 2.5mg Inhale 3 [facility] 2.5 mg /3 9-29 mL every 2 ity of mL (0.083 00:00: (two) [place] %) 00 hours as Medical nebulizer needed for Bran ch solution Shortness of Breath or Wheezing. ipratropium 2022-0 Yes [id number] .5mg Inhale 2.5 [facility] 0.02 % 9-29 [...] in the Branch evening. albuterol 2021-0 Yes [id number] 2.5mg Inhale 3 [facility] 2.5 mg /3 9-29 mL every 2 ity of mL (0.083 00:00: (two) [place] %) 00 hours as Medical nebulizer needed for Bran ch solution Shortness of Breath or Wheezing. ipratropium 2-0 Yes [id number] .5mg Inhale 2.5 [facility] 0.02 % 9-29 [...] in the Branch evening. albuterol 2022-0 Yes [id number] 2.5mg Inhale 3 [facility] 2.5 mg /3 9-29 mL every 2 ity of mL (0.083 00:00: (two) [place] %) 00 hours as Medical nebulizer needed for Bran ch solution Shortness of Breath or Wheezing. ipratropium 2022-0 Yes [id number] .5mg Inhale 2.5 [facility] 0.02 % 9-29 [...] in the Branch evening. albuterol 2021-0 Yes [id number] 2.5mg Inhale 3 [facility] 2.5 mg /3 9-29 mL every 2 ity of mL (0.083 00:00: (two) [place] %) 00 hours as Medical nebulizer needed for Bran ch solution Shortness of Breath or Wheezing. ipratropium 2-0 Yes [id number] .5mg Inhale 2.5 [facility] 0.02 % 9-29 [...] in the Branch evening. albuterol 2022-0 Yes [id number] 2.5mg Inhale 3 [facility] 2.5 mg /3 9-29 mL every 2 ity of mL (0.083 00:00: (two) [place] %) 00 hours as Medical nebulizer needed for Bran ch solution Shortness of Breath or Wheezing. ipratropium 2022-0 Yes [id number] .5mg Inhale 2.5 [facility] 0.02 % 9-29 [...] in the Branch evening. albuterol 2022-0 Yes [id number] 2.5mg Inhale 3 [facility] 2.5 mg /3 9-29 mL every 2 ity of mL (0.083 00:00: (two) [place] %) 00 hours as Medical nebulizer needed for Bran ch solution Shortness of Breath or Wheezing. ipratropium 2-0 Yes [id number] .5mg Inhale 2.5 [facility] 0.02 % 9-29 [...] in the Branch evening. albuterol 2022-0 Yes [id number] 2.5mg Inhale 3 [facility] 2.5 mg /3 9-29 mL every 2 ity of mL (0.083 00:00: (two) [place] %) 00 hours as Medical nebulizer needed for Bran ch solution Shortness of Breath or Wheezing. ipratropium 2022-0 Yes [id number] .5mg Inhale 2.5 [facility] 0.02 % 9-29 [...] in the Branch evening. albuterol 2022-0 Yes [id number] 2.5mg Inhale 3 [facility] 2.5 mg /3 9-29 mL every 2 ity of mL (0.083 00:00: (two) [place] %) 00 hours as Medical nebulizer needed for Bran ch solution Shortness of Breath or Wheezing. ipratropium 2-0 Yes [id number] .5mg Inhale 2.5 [facility] 0.02 % 9-29 [...] in the Branch evening. albuterol 2022-0 Yes [id number] 2.5mg Inhale 3 [facility] 2.5 mg /3 9-29 mL every 2 ity of mL (0.083 00:00: (two) [place] %) 00 hours as Medical nebulizer needed for Bran ch solution Shortness of Breath or Wheezing. ipratropium 2022-0 Yes [id number] .5mg Inhale 2.5 [facility] 0.02 % 9-29 [...] in the Branch evening. albuterol 2-0 Yes [id number] 2.5mg Inhale 3 [facility] 2.5 mg /3 9-29 mL every 2 ity of mL (0.083 00:00: (two) [place] %) 00 hours as Medical nebulizer needed for Bran ch solution Shortness of Breath or Wheezing. ipratropium 2021-0 Yes [id number] .5mg Inhale 2.5 [facility] 0.02 % 9-29 [...] in the Branch evening. albuterol 2-0 Yes [id number] 2.5mg Inhale 3 [facility] 2.5 mg /3 9-29 mL every 2 ity of mL (0.083 00:00: (two) [place] %) 00 hours as Medical nebulizer needed for Bran ch solution Shortness of Breath or Wheezing. ipratropium 2-0 Yes [id number] .5mg Inhale 2.5 [facility] 0.02 % 9-29 [...] in the Branch evening. albuterol 2021-0 Yes [id number] 2.5mg Inhale 3 [facility] 2.5 mg /3 9-29 mL every 2 ity of mL (0.083 00:00: (two) [place] %) 00 hours as Medical nebulizer needed for Bran ch solution Shortness of Breath or Wheezing. ipratropium 2021-0 Yes [id number] .5mg Inhale 2.5 [facility] 0.02 % 9-29 [...] in the Branch evening. albuterol 2-0 Yes [id number] 2.5mg Inhale 3 [facility] 2.5 mg /3 9-29 mL every 2 ity of mL (0.083 00:00: (two) [place] %) 00 hours as Medical nebulizer needed for Bran ch solution Shortness of Breath or Wheezing. ipratropium 2-0 Yes [id number] .5mg Inhale 2.5 [facility] 0.02 % 9-29 [...] in the Branch evening. albuterol 2-0 Yes [id number] 2.5mg Inhale 3 [facility] 2.5 mg /3 9-29 mL every 2 ity of mL (0.083 00:00: (two) [place] %) 00 hours as Medical nebulizer needed for Bran ch solution Shortness of Breath or Wheezing. ipratropium 2-0 Yes [id number] .5mg Inhale 2.5 [facility] 0.02 % 9-29 [...] in the Branch evening. albuterol 2-0 Yes [id number] 2.5mg Inhale 3 [facility] 2.5 mg /3 9-29 mL every 2 ity of mL (0.083 00:00: (two) [place] %) 00 hours as Medical nebulizer needed for Bran ch solution Shortness of Breath or Wheezing. ipratropium 2022-0 Yes [id number] .5mg Inhale 2.5 [facility] 0.02 % 9-29 [...] in the Branch evening. albuterol 2021-0 Yes [id number] 2.5mg Inhale 3 [facility] 2.5 mg /3 9-29 mL every 2 ity of mL (0.083 00:00: (two) [place] %) 00 hours as Medical nebulizer needed for Bran ch solution Shortness of Breath or Wheezing. ipratropium 2-0 Yes [id number] .5mg Inhale 2.5 [facility] 0.02 % 9-29 [...] in the Branch evening. albuterol 2021-0 Yes [id number] 2.5mg Inhale 3 [facility] 2.5 mg /3 9-29 mL every 2 ity of mL (0.083 00:00: (two) [place] %) 00 hours as Medical nebulizer needed for Bran ch solution Shortness of Breath or Wheezing. ipratropium 2-0 Yes [id number] .5mg Inhale 2.5 [facility] 0.02 % 9-29 [...] in the Branch evening. albuterol 2021-0 Yes [id number] 2.5mg Inhale 3 [facility] 2.5 mg /3 9-29 mL every 2 ity of mL (0.083 00:00: (two) [place] %) 00 hours as Medical nebulizer needed for Bran ch solution Shortness of Breath or Wheezing. ipratropium 2021-0 Yes [id number] .5mg Inhale 2.5 [facility] 0.02 % 9-29 [...] in the Branch evening. albuterol 2021-0 Yes [id number] 2.5mg Inhale 3 [facility] 2.5 mg /3 9-29 mL every 2 ity of mL (0.083 00:00: (two) [place] %) 00 hours as Medical nebulizer needed for Bran ch solution Shortness of Breath or Wheezing. ipratropium 2021-0 Yes [id number] .5mg Inhale 2.5 [facility] 0.02 % 9-29 [...] the Branch evening. albuterol 2021-0 3- No [id number] 2.5mg Inhale 3 [facility] 2.5 mg /3 11-30-05 mL every 2 ity of mL (0.083 00:00: 00:00 (two) [place] %) 00 :00 hours as Medical nebulizer needed for Bran ch solution Shortness of Breath or Wheezing. ipratropium 2021-0 2022- No [id number] .5mg Inhale 2.5 [facility] 0.02 % 11-30-05 [...] in the Branch evening. albuterol 2021-2022- No [id number] 2.5mg Inhale 3 [facility] 2.5 mg /3 11-30-05 mL every 2 ity of mL (0.083 00:00: 00:00 (two) [place] %) 00 :00 hours as Medical nebulizer needed for Bran ch solution Shortness of Breath or Wheezing. ipratropium 2021-0 2022- No [id number] .5mg Inhale 2.5 [facility] 0.02 % 11-30-05 [...] the Branch evening. albuterol 2021-0 2022- No [id number] 2.5mg Inhale 3 [facility] 2.5 mg /3 11-30-05 mL every 2 ity of mL (0.083 00:00: 00:00 (two) [place] %) 00 :00 hours as Medical nebulizer needed for Bran ch solution Shortness of Breath or Wheezing. ipratropium 2021-0 2022- No [id number] .5mg Inhale 2.5 [facility] 0.02 % 11-30-05 [...] the Branch evening. albuterol 2021-0 2022- No [id number] 2.5mg Inhale 3 [facility] 2.5 mg /3 11-30-05 mL every 2 ity of mL (0.083 00:00: 00:00 (two) [place] %) 00 :00 hours as Medical nebulizer needed for Bran ch solution Shortness of Breath or Wheezing. ipratropium 2021-0 3- No [id number] .5mg Inhale 2.5 [facility] 0.02 % 11-30-05 mL every 4 ity of nebulizer 00:00: 00:00 (four) [place] solution 00 :00 hours as Medical needed for Branch Wheezing or Shortness of Breath. arformotero 202-0 3- No 15ug Use 2 mL U nivers L 15 mcg/2 11-30-05 as ity of mL 00:00: 00:00 directed [place] nebulizer 00 :00 in the Medical solution morning Branch and 2 mL in the evening. budesonide 2021-0 2023- No .25mg Inhale 2 U nivers 0.25 mg/2 11-30 01-05 mL in the ity of mL 00:00: 00:00 morning [place] nebulizer 00 :00 and 2 mL Medica l solution in the Branch evening. Desoximetas 2021-0 Yes [id number] Apply to [facility] one 0.25 % 9-27 area(s) 2 ity of ointment 00:00: (two) [place] 00 times Medical daily. Branch Desoximetas 2021-0 Yes [id number] Apply to [facility] one 0.25 % 9-27 area(s) 2 ity of ointment 00:00: (two) [place] 00 times Medical daily. Branch Desoximetas 2021-0 Yes [id number] Apply to [facility] one 0.25 % 9-27 area(s) 2 ity of ointment 00:00: (two) [place] 00 times Medical daily. Branch Desoximetas 2021-0 Yes [id number] Apply to [facility] one 0.25 % 9-27 area(s) 2 ity of ointment 00:00: (two) [place] 00 times Medical daily. Branch Desoximetas 2021-0 Yes [id number] Apply to [facility] one 0.25 % 9-27 area(s) 2 ity of ointment 00:00: (two) [place] 00 times Medical daily. Branch Desoximetas 2021-0 Yes [id number] Apply to [facility] one 0.25 % 9-27 area(s) 2 ity of ointment 00:00: (two) [place] 00 times Medical daily. Branch Desoximetas 2021-0 Yes [id number] Apply to [facility] one 0.25 % 9-27 area(s) 2 ity of ointment 00:00: (two) [place] 00 times Medical daily. Branch Desoximetas 2021-0 Yes [id number] Apply to [facility] one 0.25 % 9-27 area(s) 2 ity of ointment 00:00: (two) [place] 00 times Medical daily. Branch Desoximetas 2022-0 Yes [id number] Apply to [facility] one 0.25 % 9-27 area(s) 2 ity of ointment 00:00: (two) [place] 00 times Medical daily. Branch Desoximetas 2-0 Yes [id number] Apply to [facility] one 0.25 % 9-27 area(s) 2 ity of ointment 00:00: (two) [place] 00 times Medical daily. Branch Desoximetas 2-0 Yes [id number] Apply to [facility] one 0.25 % 9-27 area(s) 2 ity of ointment 00:00: (two) [place] 00 times Medical daily. Branch Desoximetas 2-0 Yes [id number] Apply to [facility] one 0.25 % 9-27 area(s) 2 ity of ointment 00:00: (two) [place] 00 times Medical daily. Branch Desoximetas 2-0 Yes [id number] Apply to [facility] one 0.25 % 9-27 area(s) 2 ity of ointment 00:00: (two) [place] 00 times Medical daily. Branch Desoximetas 2-0 Yes [id number] Apply to [facility] one 0.25 % 9-27 area(s) 2 ity of ointment 00:00: (two) [place] 00 times Medical daily. Branch Desoximetas 2-0 Yes [id number] Apply to [facility] one 0.25 % 9-27 area(s) 2 ity of ointment 00:00: (two) [place] 00 times Medical daily. Branch Desoximetas 2-0 Yes [id number] Apply to [facility] one 0.25 % 9-27 area(s) 2 ity of ointment 00:00: (two) [place] 00 times Medical daily. Branch Desoximetas 2022-0 Yes [id number] Apply to [facility] one 0.25 % 9-27 area(s) 2 ity of ointment 00:00: (two) [place] 00 times Medical daily. Branch Desoximetas 2022-0 Yes [id number] Apply to [facility] one 0.25 % 9-27 area(s) 2 ity of ointment 00:00: (two) [place] 00 times Medical daily. Branch Desoximetas 2-0 Yes [id number] Apply to [facility] one 0.25 % 9-27 area(s) 2 ity of ointment 00:00: (two) [place] 00 times Medical daily. Branch Desoximetas 2-0 Yes [id number] Apply to [facility] one 0.25 % 9-27 area(s) 2 ity of ointment 00:00: (two) [place] 00 times Medical daily. Branch Desoximetas 2-0 Yes [id number] Apply to [facility] one 0.25 % 9-27 area(s) 2 ity of ointment 00:00: (two) [place] 00 times Medical daily. Branch Desoximetas 2-0 Yes [id number] Apply to [facility] one 0.25 % 9-27 area(s) 2 ity of ointment 00:00: (two) [place] 00 times Medical daily. Branch Desoximetas 2-0 Yes [id number] Apply to [facility] 0.25 % 9-27 area(s) 2 ity of ointment 00:00: (two) [place] 00 times Medical daily. Branch Desoximetas 2-0 Yes [id number] Apply to [facility] 0.25 % 9-27 area(s) 2 ity of ointment 00:00: (two) [place] 00 times Medical daily. Branch Desoximetas 2-0 Yes [id number] Apply to [facility] 0.25 % 9-27 area(s) 2 ity of ointment 00:00: (two) [place] 00 times Medical daily. Branch Desoximetas 2-0 Yes [id number] Apply to [facility] one 0.25 % 9-27 area(s) 2 ity of ointment 00:00: (two) [place] 00 times Medical daily. Branch Desoximetas 2022-0 Yes [id number] Apply to [facility] one 0.25 % 9-27 area(s) 2 ity of ointment 00:00: (two) [place] 00 times Medical daily. Branch Desoximetas 2022-0 Yes [id number] Apply to [facility] one 0.25 % 9-27 area(s) 2 ity of ointment 00:00: (two) [place] 00 times Medical daily. Branch Desoximetas 2-0 Yes [id number] Apply to [facility] 0.25 % 9-27 area(s) 2 ity of ointment 00:00: (two) [place] 00 times Medical daily. Branch Desoximetas 2-0 Yes [id number] Apply to [facility] one 0.25 % 9-27 area(s) 2 ity of ointment 00:00: (two) [place] 00 times Medical daily. Branch Desoximetas 2-0 Yes [id number] Apply to [facility] one 0.25 % 9-27 area(s) 2 ity of ointment 00:00: (two) [place] 00 times Medical daily. Branch Desoximetas 2-0 Yes [id number] Apply to [facility] one 0.25 % 9-27 area(s) 2 ity of ointment 00:00: (two) [place] 00 times Medical daily. Branch Desoximetas 2-0 Yes [id number] Apply to [facility] one 0.25 % 9-27 area(s) 2 ity of ointment 00:00: (two) [place] 00 times Medical daily. Branch Desoximetas 2-0 Yes [id number] Apply to [facility] 0.25 % 9-27 area(s) 2 ity of ointment 00:00: (two) [place] 00 times Medical daily. Branch Desoximetas 2-0 Yes [id number] Apply to [facility] 0.25 % 9-27 area(s) 2 ity of ointment 00:00: (two) [place] 00 times Medical daily. Branch Desoximetas 2-0 Yes [id number] Apply to [facility] one 0.25 % 9-27 area(s) 2 ity of ointment 00:00: (two) [place] 00 times Medical daily. Branch Desoximetas 2022-0 Yes [id number] Apply to [facility] 0.25 % 9-27 area(s) 2 ity of ointment 00:00: (two) [place] 00 times Medical daily. Branch Desoximetas 2022-0 Yes [id number] Apply to [facility] 0.25 % 9-27 area(s) 2 ity of ointment 00:00: (two) [place] 00 times Medical daily. Branch Desoximetas 2-0 Yes [id number] Apply to [facility] 0.25 % 9-27 area(s) 2 ity of ointment 00:00: (two) [place] 00 times Medical daily. Branch Desoximetas 2-0 Yes [id number] Apply to [facility] 0.25 % 9-27 area(s) 2 ity of ointment 00:00: (two) [place] 00 times Medical daily. Branch Desoximetas 2-0 Yes [id number] Apply to [facility] 0.25 % 9-27 area(s) 2 ity of ointment 00:00: (two) [place] 00 times Medical daily. Branch Desoximetas 2-0 Yes [id number] Apply to [facility] 0.25 % 9-27 area(s) 2 ity of ointment 00:00: (two) [place] 00 times Medical daily. Branch Desoximetas 2-0 Yes [id number] Apply to [facility] 0.25 % 9-27 area(s) 2 ity of ointment 00:00: (two) [place] 00 times Medical daily. Branch Desoximetas 2-0 Yes [id number] Apply to [facility] 0.25 % 9-27 area(s) 2 ity of ointment 00:00: (two) [place] 00 times Medical daily. Branch Desoximetas 2-0 Yes [id number] Apply to [facility] 0.25 % 9-27 area(s) 2 ity of ointment 00:00: (two) [place] 00 times Medical daily. Branch Desoximetas 2-0 Yes [id number] Apply to [facility] 0.25 % 9-27 area(s) 2 ity of ointment 00:00: (two) [place] 00 times Medical daily. Branch Desoximetas 2022-0 Yes [id number] Apply to [facility] one 0.25 % 9-27 area(s) 2 ity of ointment 00:00: (two) [place] 00 times Medical daily. Branch Desoximetas 2022-0 Yes [id number] Apply to [facility] 0.25 % 9-27 area(s) 2 ity of ointment 00:00: (two) [place] 00 times Medical daily. Branch Desoximetas 2-0 Yes [id number] Apply to [facility] 0.25 % 9-27 area(s) 2 ity of ointment 00:00: (two) [place] 00 times Medical daily. Branch Desoximetas 2-0 Yes [id number] Apply to [facility] 0.25 % 9-27 area(s) 2 ity of ointment 00:00: (two) [place] 00 times Medical daily. Branch Desoximetas 2-0 Yes [id number] Apply to [facility] 0.25 % 9-27 area(s) 2 ity of ointment 00:00: (two) [place] 00 times Medical daily. Branch Desoximetas 2-0 Yes [id number] Apply to [facility] 0.25 % 9-27 area(s) 2 ity of ointment 00:00: (two) [place] 00 times Medical daily. Branch Desoximetas 2-0 Yes [id number] Apply to [facility] 0.25 % 9-27 area(s) 2 ity of ointment 00:00: (two) [place] 00 times Medical daily. Branch Desoximetas 2-0 Yes [id number] Apply to [facility] one 0.25 % 9-27 area(s) 2 ity of ointment 00:00: (two) [place] 00 times Medical daily. Branch Desoximetas 2-0 Yes [id number] Apply to [facility] 0.25 % 9-27 area(s) 2 ity of ointment 00:00: (two) [place] 00 times Medical daily. Branch Desoximetas 2-0 Yes [id number] Apply to [facility] 0.25 % 9-27 area(s) 2 ity of ointment 00:00: (two) [place] 00 times Medical daily. Branch Desoximetas 2022-0 Yes [id number] Apply to [facility] 0.25 % 9-27 area(s) 2 ity of ointment 00:00: (two) [place] 00 times Medical daily. Branch Desoximetas 2022-0 Yes [id number] Apply to [facility] one 0.25 % 9-27 area(s) 2 ity of ointment 00:00: (two) [place] 00 times Medical daily. Branch Desoximetas 2-0 Yes [id number] Apply to [facility] 0.25 % 9-27 area(s) 2 ity of ointment 00:00: (two) [place] 00 times Medical daily. Branch Desoximetas 2-0 Yes [id number] Apply to [facility] 0.25 % 9-27 area(s) 2 ity of ointment 00:00: (two) [place] 00 times Medical daily. Branch Desoximetas 2-0 Yes [id number] Apply to [facility] 0.25 % 9-27 area(s) 2 ity of ointment 00:00: (two) [place] 00 times Medical daily. Branch Desoximetas 2-0 Yes [id number] Apply to [facility] 0.25 % 9-27 area(s) 2 ity of ointment 00:00: (two) [place] 00 times Medical daily. Branch Desoximetas 2-0 Yes [id number] Apply to [facility] 0.25 % 9-27 area(s) 2 ity of ointment 00:00: (two) [place] 00 times Medical daily. Branch Desoximetas 2-0 Yes [id number] Apply to [facility] one 0.25 % 9-27 area(s) 2 ity of ointment 00:00: (two) [place] 00 times Medical daily. Branch Desoximetas 2-0 Yes [id number] Apply to [facility] one 0.25 % 9-27 area(s) 2 ity of ointment 00:00: (two) [place] 00 times Medical daily. Branch Desoximetas 2-0 Yes [id number] Apply to [facility] 0.25 % 9-27 area(s) 2 ity of ointment 00:00: (two) [place] 00 times Medical daily. Branch Desoximetas 2022-0 Yes [id number] Apply to [facility] one 0.25 % 9-27 area(s) 2 ity of ointment 00:00: (two) [place] 00 times Medical daily. Branch Desoximetas 2022-0 2023- No [id number] Apply to [facility] one 0.25 % 9-27 07-18 area(s) 2 ity of ointment 00:00: 00:00 (two) [place] 00 :00 times Medical daily. Branch Desoximetas 2023- No [id number] Apply to [facility] one 0.25 % 11-2818 area(s) 2 ity of ointment 00:00: 00:00 (two) [place] 00 :00 times Medical daily. Branch hydrOXYzine 0 Yes [id number] 25mg Take 1 [facility] 25 mg 9-12 capsule by ity of capsule 00:00: mouth 3 [place] (three) Medical times Branch daily as needed for Itching. allopurinoL 0 Yes [id number] 50mg Take 0.5 [facility] 100 mg 9-12 tablets by ity of tablet 00:00: mouth [place] 00 every Medical other day. Branch hydrOXYzine 2021-0 Yes [id number] 25mg Take 1 [facility] 25 mg 9-12 capsule by ity of capsule 00:00: mouth [address] [place] [address] (three) Medical times Branch daily as needed for Itching. allopurinoL 2021-0 Yes [id number] 50mg Take 0.5 [facility] 100 mg 9-12 tablets by ity of tablet 00:00: mouth [place] every Medical other day. Branch hydrOXYzine 0 Yes [id number] 25mg Take 1 [facility] 25 mg 9-12 capsule by ity of capsule 00:00: mouth [address] [place] [address] (three) Medical times Branch daily as needed for Itching. allopurinoL 0 Yes [id number] 50mg Take 0.5 [facility] 100 mg 9-12 tablets by ity of tablet 00:00: mouth [place] 00 every Medical other day. Branch hydrOXYzine 2021-0 Yes [id number] 25mg Take 1 [facility] 25 mg 9-12 capsule by ity of capsule 00:00: mouth [address] [place] [address] (three) Medical times Branch daily as needed for Itching. allopurinoL 2021-0 Yes [id number] 50mg Take 0.5 [facility] 100 mg 9-12 tablets by ity of tablet 00:00: mouth [place] 00 every Medical other day. Branch hydrOXYzine 2021-0 Yes [id number] 25mg Take 1 [facility] 25 mg 9-12 capsule by ity of capsule 00:00: mouth 3 [place] (three) Medical times Branch daily as needed for Itching. allopurinoL 2021-0 Yes [id number] 50mg Take 0.5 [facility] 100 mg 9-12 tablets by ity of tablet 00:00: mouth [place] 00 every Medical other day. Branch hydrOXYzine 2-0 Yes [id number] 25mg Take 1 [facility] 25 mg 9-12 capsule by ity of capsule 00:00: mouth (three) Medical times Branch daily as needed for Itching. allopurinoL 2-0 Yes [id number] 50mg Take 0.5 [facility] 100 mg 9-12 tablets by ity of tablet 00:00: mouth [place] 00 every Medical other day. Branch hydrOXYzine 2021-0 Yes [id number] 25mg Take 1 [facility] 25 mg 9-12 capsule by ity of capsule 00:00: mouth 3 (three) Medical times Branch daily as needed for Itching. allopurinoL 2021-0 Yes [id number] 50mg Take 0.5 [facility] 100 mg 9-12 tablets by ity of tablet 00:00: mouth [place] 00 every Medical other day. Branch hydrOXYzine 2021-0 Yes [id number] 25mg Take 1 [facility] 25 mg 9-12 capsule by ity of capsule 00:00: mouth (three) Medical times Branch daily as needed for Itching. allopurinoL 2021-0 Yes [id number] 50mg Take 0.5 [facility] 100 mg 9-12 tablets by ity of tablet 00:00: mouth 00 every Medical other day. Branch hydrOXYzine 2021-0 Yes [id number] 25mg Take 1 [facility] 25 mg 9-12 capsule by ity of capsule 00:00: mouth (three) Medical times Branch daily as needed for Itching. allopurinoL 2-0 Yes [id number] 50mg Take 0.5 [facility] 100 mg 9-12 tablets by ity of tablet 00:00: mouth [place] 00 every Medical other day. Branch hydrOXYzine 2-0 Yes [id number] 25mg Take 1 [facility] 25 mg 9-12 capsule by ity of capsule 00:00: mouth (three) Medical times Branch daily as needed for Itching. allopurinoL 2022-0 Yes [id number] 50mg Take 0.5 [facility] 100 mg 9-12 tablets by ity of tablet 00:00: mouth [place] 00 every Medical other day. Branch hydrOXYzine 2-0 Yes [id number] 25mg Take 1 [facility] 25 mg 9-12 capsule by ity of capsule 00:00: mouth (three) Medical times Branch daily as needed for Itching. allopurinoL 2022-0 Yes [id number] 50mg Take 0.5 [facility] 100 mg 9-12 tablets by ity of tablet 00:00: mouth [place] 00 every Medical other day. Branch hydrOXYzine 2-0 Yes [id number] 25mg Take 1 [facility] 25 mg 9-12 capsule by ity of capsule 00:00: mouth (three) Medical times Branch daily as needed for Itching. allopurinoL 2022-0 Yes [id number] 50mg Take 0.5 [facility] 100 mg 9-12 tablets by ity of tablet 00:00: mouth 00 every Medical other day. Branch hydrOXYzine 2-0 Yes [id number] 25mg Take 1 [facility] 25 mg 9-12 capsule by ity of capsule 00:00: mouth (three) Medical times Branch daily as needed for Itching. allopurinoL 2022-0 Yes [id number] 50mg Take 0.5 [facility] 100 mg 9-12 tablets by ity of tablet 00:00: mouth every Medical other day. Branch hydrOXYzine 2-0 Yes [id number] 25mg Take 1 [facility] 25 mg 9-12 capsule by ity of capsule 00:00: mouth (three) Medical times Branch daily as needed for Itching. allopurinoL 2-0 Yes [id number] 50mg Take 0.5 [facility] 100 mg 9-12 tablets by ity of tablet 00:00: mouth 00 every Medical other day. Branch hydrOXYzine 2-0 Yes [id number] 25mg Take 1 [facility] 25 mg 9-12 capsule by ity of capsule 00:00: mouth (three) Medical times Branch daily as needed for Itching. allopurinoL 2022-0 Yes [id number] 50mg Take 0.5 [facility] 100 mg 9-12 tablets by ity of tablet 00:00: mouth 00 every Medical other day. Branch hydrOXYzine 2022-0 Yes [id number] 25mg Take 1 [facility] 25 mg 9-12 capsule by ity of capsule 00:00: mouth (three) Medical times Branch daily as needed for Itching. allopurinoL 2022-0 Yes [id number] 50mg Take 0.5 [facility] 100 mg 9-12 tablets by ity of tablet 00:00: mouth [place] 00 every Medical other day. Branch hydrOXYzine 2021-0 Yes [id number] 25mg Take 1 [facility] 25 mg 9-12 capsule by ity of capsule 00:00: mouth (three) Medical times Branch daily as needed for Itching. allopurinoL 2021-0 Yes [id number] 50mg Take 0.5 [facility] 100 mg 9-12 tablets by ity of tablet 00:00: mouth [place] 00 every Medical other day. Branch hydrOXYzine 2021-0 Yes [id number] 25mg Take 1 [facility] 25 mg 9-12 capsule by ity of capsule 00:00: mouth (three) Medical times Branch daily as needed for Itching. allopurinoL 2021-0 Yes [id number] 50mg Take 0.5 [facility] 100 mg 9-12 tablets by ity of tablet 00:00: mouth every Medical other day. Branch hydrOXYzine 2021-0 Yes [id number] 25mg Take 1 [facility] 25 mg 9-12 capsule by ity of capsule 00:00: mouth (three) Medical times Branch daily as needed for Itching. allopurinoL 2021-0 Yes [id number] 50mg Take 0.5 [facility] 100 mg 9-12 tablets by ity of tablet 00:00: mouth 00 every Medical other day. Branch hydrOXYzine 2021-0 Yes [id number] 25mg Take 1 [facility] 25 mg 9-12 capsule by ity of capsule 00:00: mouth (three) Medical times Branch daily as needed for Itching. allopurinoL 2021-0 Yes [id number] 50mg Take 0.5 [facility] 100 mg 9-12 tablets by ity of tablet 00:00: mouth 00 every Medical other day. Branch hydrOXYzine 2021-0 Yes [id number] 25mg Take 1 [facility] 25 mg 9-12 capsule by ity of capsule 00:00: mouth (three) Medical times Branch daily as needed for Itching. allopurinoL 2021-0 Yes [id number] 50mg Take 0.5 [facility] 100 mg 9-12 tablets by ity of tablet 00:00: mouth [place] 00 every Medical other day. Branch hydrOXYzine 2021-0 Yes [id number] 25mg Take 1 [facility] 25 mg 9-12 capsule by ity of capsule 00:00: mouth (three) Medical times Branch daily as needed for Itching. allopurinoL 2022-0 Yes [id number] 50mg Take 0.5 [facility] 100 mg 9-12 tablets by ity of tablet 00:00: mouth [place] 00 every Medical other day. Branch hydrOXYzine 2021-0 Yes [id number] 25mg Take 1 [facility] 25 mg 9-12 capsule by ity of capsule 00:00: mouth 3 (three) Medical times Branch daily as needed for Itching. allopurinoL 202-0 Yes [id number] 50mg Take 0.5 [facility] 100 mg 9-12 tablets by ity of tablet 00:00: mouth [place] 00 every Medical other day. Branch hydrOXYzine 2021-0 Yes [id number] 25mg Take 1 [facility] 25 mg 9-12 capsule by ity of capsule 00:00: mouth (three) Medical times Branch daily as needed for Itching. allopurinoL 2021-0 Yes [id number] 50mg Take 0.5 [facility] 100 mg 9-12 tablets by ity of tablet 00:00: mouth [place] 00 every Medical other day. Branch hydrOXYzine 2021-0 Yes [id number] 25mg Take 1 [facility] 25 mg 9-12 capsule by ity of capsule 00:00: mouth (three) Medical times Branch daily as needed for Itching. allopurinoL 2021-0 Yes [id number] 50mg Take 0.5 [facility] 100 mg 9-12 tablets by ity of tablet 00:00: mouth [place] 00 every Medical other day. Branch hydrOXYzine 2021-0 Yes [id number] 25mg Take 1 [facility] 25 mg 9-12 capsule by ity of capsule 00:00: mouth (three) Medical times Branch daily as needed for Itching. allopurinoL 2021-0 Yes [id number] 50mg Take 0.5 [facility] 100 mg 9-12 tablets by ity of tablet 00:00: mouth [place] 00 every Medical other day. Branch hydrOXYzine 2021-0 Yes [id number] 25mg Take 1 [facility] 25 mg 9-12 capsule by ity of capsule 00:00: mouth 3 (three) Medical times Branch daily as needed for Itching. allopurinoL 2022-0 Yes [id number] 50mg Take 0.5 [facility] 100 mg 9-12 tablets by ity of tablet 00:00: mouth [place] 00 every Medical other day. Branch hydrOXYzine 2022-0 Yes [id number] 25mg Take 1 [facility] 25 mg 9-12 capsule by ity of capsule 00:00: mouth 3 (three) Medical times Branch daily as needed for Itching. allopurinoL 2021-0 Yes [id number] 50mg Take 0.5 [facility] 100 mg 9-12 tablets by ity of tablet 00:00: mouth [place] 00 every Medical other day. Branch hydrOXYzine 2021-0 Yes [id number] 25mg Take 1 [facility] 25 mg 9-12 capsule by ity of capsule 00:00: mouth 3 (three) Medical times Branch daily as needed for Itching. allopurinoL 2021-0 Yes [id number] 50mg Take 0.5 [facility] 100 mg 9-12 tablets by ity of tablet 00:00: mouth [place] 00 every Medical other day. Branch hydrOXYzine 2021-0 Yes [id number] 25mg Take 1 [facility] 25 mg 9-12 capsule by ity of capsule 00:00: mouth (three) Medical times Branch daily as needed for Itching. allopurinoL 2021-0 Yes [id number] 50mg Take 0.5 [facility] 100 mg 9-12 tablets by ity of tablet 00:00: mouth [place] 00 every Medical other day. Branch hydrOXYzine 2021-0 Yes [id number] 25mg Take 1 [facility] 25 mg 9-12 capsule by ity of capsule 00:00: mouth (three) Medical times Branch daily as needed for Itching. allopurinoL 2021-0 Yes [id number] 50mg Take 0.5 [facility] 100 mg 9-12 tablets by ity of tablet 00:00: mouth [place] 00 every Medical other day. Branch hydrOXYzine 2021-0 Yes [id number] 25mg Take 1 [facility] 25 mg 9-12 capsule by ity of capsule 00:00: mouth 3 (three) Medical times Branch daily as needed for Itching. allopurinoL 2021-0 Yes [id number] 50mg Take 0.5 [facility] 100 mg 9-12 tablets by ity of tablet 00:00: mouth [place] 00 every Medical other day. Branch hydrOXYzine 2021-0 Yes [id number] 25mg Take 1 [facility] 25 mg 9-12 capsule by ity of capsule 00:00: mouth 3 (three) Medical times Branch daily as needed for Itching. allopurinoL 2021-0 Yes [id number] 50mg Take 0.5 [facility] 100 mg 9-12 tablets by ity of tablet 00:00: mouth [place] 00 every Medical other day. Branch allopurinoL 2021-0 Yes [id number] 50mg Take 0.5 [facility] 100 mg 9-12 tablets by ity of tablet 00:00: mouth [place] 00 every Medical other day. Branch allopurinoL 2021-0 Yes [id number] 50mg Take 0.5 [facility] 100 mg 9-12 tablets by ity of tablet 00:00: mouth [place] 00 every Medical other day. Branch allopurinoL 2021-0 Yes [id number] 50mg Take 0.5 [facility] 100 mg 9-12 tablets by ity of tablet 00:00: mouth [place] 00 every Medical other day. Branch allopurinoL 2021-0 Yes [id number] 50mg Take 0.5 [facility] 100 mg 9-12 tablets by ity of tablet 00:00: mouth [place] 00 every Medical other day. Branch allopurinoL 2021-0 Yes [id number] 50mg Take 0.5 [facility] 100 mg 9-12 tablets by ity of tablet 00:00: mouth [place] 00 every Medical other day. Branch allopurinoL 2021-0 Yes [id number] 50mg Take 0.5 [facility] 100 mg 9-12 tablets by ity of tablet 00:00: mouth [place] 00 every Medical other day. Branch allopurinoL 2021-0 Yes [id number] 50mg Take 0.5 [facility] 100 mg 9-12 tablets by ity of tablet 00:00: mouth [place] 00 every Medical other day. Branch allopurinoL 2021-0 Yes [id number] 50mg Take 0.5 [facility] 100 mg 9-12 tablets by ity of tablet 00:00: mouth [place] 00 every Medical other day. Branch allopurinoL 2021-0 Yes [id number] 50mg Take 0.5 [facility] 100 mg 9-12 tablets by ity of tablet 00:00: mouth [place] 00 every Medical other day. Branch allopurinoL 2021-0 Yes [id number] 50mg Take 0.5 [facility] 100 mg 9-12 tablets by ity of tablet 00:00: mouth [place] 00 every Medical other day. Branch allopurinoL 2021-0 Yes [id number] 50mg Take 0.5 [facility] 100 mg 9-12 tablets by ity of tablet 00:00: mouth [place] 00 every Medical other day. Branch allopurinoL 2022-0 Yes [id number] 50mg Take 0.5 [facility] 100 mg 9-12 tablets by ity of tablet 00:00: mouth [place] 00 every Medical other day. [place] allopurinoL Yes [id number] 50mg Take 0.5 [facility] 100 mg 9-12 tablets by ity of tablet 00:00: mouth [place] 00 every Medical other day. [place] allopurinoL 2022- No [id number] 50mg Take 0.5 [facility] 100 mg 9-12 -05 tablets by ity of tablet 00:00: 00:00 mouth [place] 00 :00 every Medical other day. [place] allopurinoL 2021-3- No [id number] 50mg Take 0.5 [facility] 100 mg 9-12 -05 tablets by ity of tablet 00:00: 00:00 mouth [place] 00 :00 every Medical other day. [place] allopurinoL 2021-2022- No [id number] 50mg Take 0.5 [facility] 100 mg 9-12 -05 tablets by ity of tablet 00:00: 00:00 mouth [place] 00 :00 every Medical other day. [place] allopurinoL 2022- No [id number] 50mg Take 0.5 [facility] 100 mg 9-12 -05 tablets by ity of tablet 00:00: 00:00 mouth [place] 00 :00 every Medical other day. [place] hydrOXYzine 2021- No [id number] 25mg Take 1 [facility] 25 mg 11-13-17 capsule by ity of capsule 00:00: 00:00 mouth 3 [place] 00 :00 (three) Medical times [place] daily as needed for Itching. hydrOXYzine 2021-2021- No 25mg Take 25 mg [facility] 25 mg 11-13- by mouth. ity of tablet 00:00: 00:00 [place] 00 :00 Medical Branch hydrOXYzine 2021-0 2021- No 25mg Take 25 mg [facility] 25 mg 11-13- by mouth. ity of tablet 00:00: 00:00 [place] 00 :00 Medical Branch oxymetazoli Yes 1{puff} Use 1 Puff [facility] [...] by mouth ity of 09:34: in the [place] [address] morning. Medical Indication Branch s: reports kidney Dr Rx, ~2 mths ago bumetanide 2022-0 Yes 1mg Take 1 mg Un renetta 1 mg tablet 9-01 by mouth ity of 09:34: in the [place] [address] morning. Medical Indication Branch s: reports kidney Dr Rx, ~2 mths ago bumetanide 2022-0 Yes 1mg Take 1 mg Un renetta 1 mg tablet 9-01 by mouth ity of 09:34: in the [place] morning. Medical Indication Branch s: reports kidney Dr Rx, ~2 mths ago bumetanide 2022-0 Yes 1mg Take 1 mg Un renetta 1 mg tablet 9-01 by mouth ity of 09:34: in the [place] morning. Medical Indication Branch s: reports kidney Dr Rx, ~2 mths ago bumetanide 2022-0 Yes 1mg Take 1 mg Un renetta 1 mg tablet 9-01 by mouth ity of 09:34: in the [place] [address] morning. Medical Indication Branch s: reports kidney Dr Rx, ~2 mths ago bumetanide 2022-0 Yes 1mg Take 1 mg Un renetta 1 mg tablet 9-01 by mouth ity of 09:34: in the [place] morning. Medical Indication Branch s: reports kidney Dr Rx, ~2 mths ago bumetanide 2022-0 Yes 1mg Take 1 mg Un renetta 1 mg tablet 9-01 by mouth ity of 09:34: in the [place] [address] morning. Medical Indication Branch s: reports kidney Dr Rx, ~2 mths ago bumetanide 2022-0 Yes 1mg Take 1 mg Un renetta 1 mg tablet 9-01 by mouth ity of 09:34: in the [place] [address] morning. Medical Indication Branch s: reports kidney Dr Rx, ~2 mths ago bumetanide 2022-0 Yes 1mg Take 1 mg Un renetta 1 mg tablet 9-01 by mouth ity of 09:34: in the [place] [address] morning. Medical Indication Branch s: reports kidney Dr Rx, ~2 mths ago bumetanide 2022-0 Yes 1mg Take 1 mg Un renetta 1 mg tablet 9-01 by mouth ity of 09:34: in the [place] [address] morning. Medical Indication Branch s: reports kidney Dr Rx, ~2 mths ago bumetanide 2022-0 Yes 1mg Take 1 mg Un renetta 1 mg tablet 9-01 by mouth ity of 09:34: in the [place] [address] morning. Medical Indication Branch s: reports kidney Dr Rx, ~2 mths ago bumetanide 2022-0 Yes 1mg Take 1 mg Un renetta 1 mg tablet 9-01 by mouth ity of 09:34: in the [place] [address] morning. Medical Indication Branch s: reports kidney Dr Rx, ~2 mths ago bumetanide 2022-0 Yes 1mg Take 1 mg Un renetta 1 mg tablet 9-01 by mouth ity of 09:34: in the [place] morning. Medical Indication Branch s: reports kidney Dr Rx, ~2 mths ago bumetanide 2022-0 Yes 1mg Take 1 mg Un renetta 1 mg tablet 9-01 by mouth ity of 09:34: in the [place] morning. Medical Indication Branch s: reports kidney Dr Rx, ~2 mths ago bumetanide 2022-0 Yes 1mg Take 1 mg Un renetta 1 mg tablet 9-01 by mouth ity of 09:34: in the [place] [address] morning. Medical Indication Branch s: reports kidney Dr Rx, ~2 mths ago bumetanide 2022-0 Yes 1mg Take 1 mg Un renetta 1 mg tablet 9-01 by mouth ity of 09:34: in the [place] morning. Medical Indication Branch s: reports kidney Dr Rx, ~2 mths ago bumetanide 2022-0 Yes 1mg Take 1 mg Un renetta 1 mg tablet 9-01 by mouth ity of 09:34: in the [place] morning. Medical Indication Branch s: reports kidney Dr Rx, ~2 mths ago bumetanide 2022-0 Yes 1mg Take 1 mg Un renetta 1 mg tablet 9-01 by mouth ity of 09:34: in the [place] morning. Medical Indication Branch s: reports kidney Dr Rx, ~2 mths ago bumetanide 2022-0 Yes 1mg Take 1 mg Un renetta 1 mg tablet 9-01 by mouth ity of 09:34: in the [place] [address] morning. Medical Indication Branch s: reports kidney Dr Rx, ~2 mths ago bumetanide 2022-0 Yes 1mg Take 1 mg Un renetta 1 mg tablet 9-01 by mouth ity of 09:34: in the [place] morning. Medical Indication Branch s: reports kidney Dr Rx, ~2 mths ago bumetanide 2022-0 Yes 1mg Take 1 mg Un renetta 1 mg tablet 9-01 by mouth ity of 09:34: in the [place] [address] morning. Medical Indication Branch s: reports kidney Dr Rx, ~2 mths ago bumetanide 2022-0 Yes 1mg Take 1 mg Un renetta 1 mg tablet 9-01 by mouth ity of 09:34: in the [place] morning. Medical Indication Branch s: reports kidney Dr Rx, ~2 mths ago bumetanide 2022-0 Yes 1mg Take 1 mg Un renetta 1 mg tablet 9-01 by mouth ity of 09:34: in the [place] 48 morning. Medical Indication Branch s: reports kidney Dr Rx, ~2 mths ago bumetanide 2022-0 Yes 1mg Take 1 mg Un renetta 1 mg tablet 9-01 by mouth ity of 09:34: in the [place] [place] [address] morning. Medical Indication Branch s: reports kidney Dr Rx, ~2 mths ago bumetanide 2021-0 Yes 1mg Take 1 mg Un renetta 1 mg tablet - by mouth ity of 09:34: in the [place] morning. Medical Indication Branch s: reports kidney Dr Rx, ~2 mths ago bumetanide 2021-0 Yes 1mg Take 1 mg [place] renetta 1 mg tablet - by mouth ity of 09:34: in the [place] [address] morning. Medical Indication Branch s: reports kidney Dr Rx, ~2 mths ago bumetanide 2021-0 Yes 1mg Take 1 mg Un renetta 1 mg tablet - by mouth ity of 09:34: in the [place] morning. Medical Indication Branch s: reports kidney Dr Rx, ~2 mths ago bumetanide 2021-0 Yes 1mg Take 1 mg Un renetta 1 mg tablet - by mouth ity of 09:34: in the [place] [address] morning. Medical Indication Branch s: reports kidney Dr Rx, ~2 mths ago Magnesium 2021-0 Yes [id number] 400mg Take 400 [facility] Ox[facility] 420 8-24 [...] acute pain, chronic pain Magnesium 2021-0 Yes [id number] 400mg Take 400 [facility] Oxide 420 8-24 [...] acute pain, chronic pain Magnesium 2021-0 Yes [id number] 400mg Take 400 [facility] Ox[facility] 420 8-24 [...] acute pain, chronic pain Magnesium 2021-0 Yes [id number] 400mg Take 400 [facility] Ox[facility] 420 8-24 [...] acute pain, chronic pain Magnesium 2021-0 Yes [id number] 400mg Take 400 [facility] Ox[facility] 420 8-24 [...] acute pain, chronic pain Magnesium 2021-0 Yes [id number] 400mg Take 400 [facility] Ox[facility] 420 8-24 [...] acute pain, chronic pain Magnesium 2-0 Yes [id number] 400mg Take 400 [facility] Ox[facility] 420 8-24 [...] acute pain, chronic pain Magnesium 2-0 Yes [id number] 400mg Take 400 [facility] Ox[facility] 420 8-24 [...] acute pain, chronic pain Magnesium 2021-0 Yes [id number] 400mg Take 400 [facility] Ox[facility] 420 8-24 [...] acute pain, chronic pain Magnesium 2021-0 Yes [id number] 400mg Take 400 [facility] Ox[facility] 420 8-24 [...] acute pain, chronic pain Magnesium 2021-0 Yes [id number] 400mg Take 400 [facility] Ox[facility] 420 8-24 [...] acute pain, chronic pain Magnesium 2-0 Yes [id number] 400mg Take 400 [facility] Ox[facility] 420 8-24 [...] acute pain, chronic pain Magnesium 2-0 Yes [id number] 400mg Take 400 [facility] Oxide 420 8-24 [...] acute pain, chronic pain Magnesium 2-0 Yes [id number] 400mg Take 400 [facility] Ox[facility] 420 8-24 [...] acute pain, chronic pain Magnesium 2-0 Yes [id number] 400mg Take 400 [facility] Oxide 420 8-24 [...] acute pain, chronic pain Magnesium 2-0 Yes [id number] 400mg Take 400 [facility] Oxide 420 8-24 [...] acute pain, chronic pain Magnesium 2022-0 Yes [id number] 400mg Take 400 [facility] Ox[facility] 420 8-24 [...] acute pain, chronic pain Magnesium 2021-0 Yes [id number] 400mg Take 400 [facility] Ox[facility] 420 8-24 [...] acute pain, chronic pain Magnesium 2022-0 Yes [id number] 400mg Take 400 [facility] Oxide 420 8-24 [...] acute pain, chronic pain Magnesium 2022-0 Yes [id number] 400mg Take 400 [facility] Oxide 420 8-24 [...] acute pain, chronic pain Magnesium 2021-0 Yes [id number] 400mg Take 400 [facility] Ox[facility] 420 8-24 [...] acute pain, chronic pain Magnesium 2021-0 Yes [id number] 400mg Take 400 [facility] Oxide 420 8-24 [...] acute pain, chronic pain Magnesium 2021-0 Yes [id number] 400mg Take 400 [facility] Oxide 420 8-24 [...] acute pain, chronic pain Magnesium 2-0 Yes [id number] 400mg Take 400 [facility] Oxide 420 8-24 mg by ity of mg Tab 00:00: mouth [place] 00 daily. Medical Branch Magnesium 2022-0 Yes [id number] 400mg Take 400 [facility] Oxide 420 8-24 mg by ity of mg Tab 00:00: mouth [place] 00 daily. Medical Branch Magnesium 2-0 Yes [id number] 400mg Take 400 [facility] Oxide 420 8-24 mg by ity of mg Tab 00:00: mouth [place] 00 daily. Medical Branch Magnesium 2-0 Yes [id number] 400mg Take 400 [facility] Oxide 420 8-24 mg by ity of mg Tab 00:00: mouth [place] 00 daily. Medical Branch Magnesium 2021-0 Yes [id number] 400mg Take 400 [facility] Oxide 420 8-24 mg by ity of mg Tab 00:00: mouth [place] 00 daily. Medical Branch Magnesium 2021-0 Yes [id number] 400mg Take 400 [facility] Oxide 420 8-24 mg by ity of mg Tab 00:00: mouth [place] 00 daily. Medical Branch Magnesium 2021-0 Yes [id number] 400mg Take 400 [facility] Oxide 420 8-24 mg by ity of mg Tab 00:00: mouth [place] 00 daily. Medical Branch Magnesium 2021-0 Yes [id number] 400mg Take 400 [facility] Oxide 420 8-24 mg by ity of mg Tab 00:00: mouth [place] 00 daily. Medical Branch Magnesium 2021-0 Yes [id number] 400mg Take 400 [facility] Oxide 420 8-24 mg by ity of mg Tab 00:00: mouth [place] 00 daily. Medical Branch Magnesium 2021-0 Yes [id number] 400mg Take 400 [facility] Oxide 420 8-24 mg by ity of mg Tab 00:00: mouth [place] 00 daily. Medical Branch Magnesium 2-0 Yes [id number] 400mg Take 400 [facility] Oxide 420 8-24 mg by ity of mg Tab 00:00: mouth [place] 00 daily. Medical Branch Magnesium 2-0 Yes [id number] 400mg Take 400 [facility] Oxide 420 8-24 mg by ity of mg Tab 00:00: mouth [place] 00 daily. Medical Branch Magnesium 2-0 Yes [id number] 400mg Take 400 [facility] Oxide 420 8-24 mg by ity of mg Tab 00:00: mouth [place] 00 daily. Medical Branch Magnesium 2-0 Yes [id number] 400mg Take 400 [facility] Oxide 420 8-24 mg by ity of mg Tab 00:00: mouth [place] 00 daily. Medical Branch Magnesium 2-0 Yes [id number] 400mg Take 400 [facility] Oxide 420 8-24 mg by ity of mg Tab 00:00: mouth [place] 00 daily. Medical Branch Magnesium 2-0 Yes [id number] 400mg Take 400 [facility] Oxide 420 8-24 mg by ity of mg Tab 00:00: mouth [place] 00 daily. Medical Branch Magnesium 2-0 Yes [id number] 400mg Take 400 [facility] Oxide 420 8-24 mg by ity of mg Tab 00:00: mouth [place] 00 daily. Medical Branch Magnesium 2-0 Yes [id number] 400mg Take 400 [facility] Oxide 420 8-24 mg by ity of mg Tab 00:00: mouth [place] 00 daily. Medical Branch Magnesium 2021-0 Yes [id number] 400mg Take 400 [facility] Oxide 420 8-24 mg by ity of mg Tab 00:00: mouth [place] 00 daily. Medical Branch Magnesium 2021-0 Yes [id number] 400mg Take 400 [facility] Oxide 420 8-24 mg by ity of mg Tab 00:00: mouth [place] 00 daily. Medical Branch Magnesium 2-0 Yes [id number] 400mg Take 400 [facility] Oxide 420 8-24 mg by ity of mg Tab 00:00: mouth [place] 00 daily. Medical Branch Magnesium 2021-0 Yes [id number] 400mg Take 400 [facility] Oxide 420 8-24 mg by ity of mg Tab 00:00: mouth [place] 00 daily. Medical Branch Magnesium 2-0 Yes [id number] 400mg Take 400 [facility] Oxide 420 8-24 mg by ity of mg Tab 00:00: mouth [place] 00 daily. Medical Branch Magnesium 2-0 Yes [id number] 400mg Take 400 [facility] Oxide 420 8-24 mg by ity of mg Tab 00:00: mouth [place] 00 daily. Medical Branch Magnesium 2-0 Yes [id number] 400mg Take 400 [facility] Oxide 420 8-24 mg by ity of mg Tab 00:00: mouth [place] 00 daily. Medical Branch Magnesium 2-0 Yes [id number] 400mg Take 400 [facility] Oxide 420 8-24 mg by ity of mg Tab 00:00: mouth [place] 00 daily. Medical Branch Magnesium 2-0 Yes [id number] 400mg Take 400 [facility] Oxide 420 8-24 mg by ity of mg Tab 00:00: mouth [place] 00 daily. Medical Branch Magnesium 2-0 Yes [id number] 400mg Take 400 [facility] Oxide 420 8-24 mg by ity of mg Tab 00:00: mouth [place] 00 daily. Medical Branch Magnesium 2-0 Yes [id number] 400mg Take 400 [facility] Oxide 420 8-24 mg by ity of mg Tab 00:00: mouth [place] 00 daily. Medical Branch Magnesium 2-0 Yes [id number] 400mg Take 400 [facility] Oxide 420 8-24 mg by ity of mg Tab 00:00: mouth [place] 00 daily. Medical Branch Magnesium 2-0 Yes [id number] 400mg Take 400 [facility] Oxide 420 8-24 mg by ity of mg Tab 00:00: mouth [place] 00 daily. Medical Branch Magnesium 2-0 Yes [id number] 400mg Take 400 [facility] Oxide 420 8-24 mg by ity of mg Tab 00:00: mouth [place] 00 daily. Medical Branch Magnesium 2-0 Yes [id number] 400mg Take 400 [facility] Oxide 420 8-24 mg by ity of mg Tab 00:00: mouth 00 daily. Medical Branch Magnesium 2021-0 Yes [id number] 400mg Take 400 [facility] Oxide 420 8-24 mg by ity of mg Tab 00:00: mouth 00 daily. Medical Branch Magnesium 2-0 Yes [id number] 400mg Take 400 [facility] Oxide 420 8-24 mg by ity of mg Tab 00:00: mouth [place] 00 daily. Medical Branch Magnesium 2-0 Yes [id number] 400mg Take 400 [facility] Oxide 420 8-24 mg by ity of mg Tab 00:00: mouth [place] 00 daily. [facility] Branch Magnesium 2-0 Yes [id number] 400mg Take 400 [facility] Oxide 420 8-24 mg by ity of mg Tab 00:00: mouth [place] 00 daily. [facility] Branch Magnesium 2-0 Yes [id number] 400mg Take 400 [facility] Oxide 420 8-24 mg by ity of mg Tab 00:00: mouth [place] 00 daily. [facility] Branch Magnesium 2-0 Yes [id number] 400mg Take 400 [facility] Oxide 420 8-24 mg by ity of mg Tab 00:00: mouth [place] 00 daily. [facility] Branch Magnesium 2-0 Yes [id number] 400mg Take 400 [facility] Oxide 420 8-24 mg by ity of mg Tab 00:00: mouth [place] 00 daily. Medical Branch Magnesium 2-0 Yes [id number] 400mg Take 400 [facility] Oxide 420 8-24 mg by ity of mg Tab 00:00: mouth [place] 00 daily. Medical Branch Magnesium 2-0 Yes [id number] 400mg Take 400 [facility] Oxide 420 8-24 mg by ity of mg Tab 00:00: mouth [place] 00 daily. Medical Branch Magnesium 2-0 Yes [id number] 400mg Take 400 [facility] Oxide 420 8-24 mg by ity of mg Tab 00:00: mouth [place] 00 daily. Medical Branch Magnesium 2-0 Yes [id number] 400mg Take 400 [facility] Oxide 420 8-24 mg by ity of mg Tab 00:00: mouth [place] 00 daily. Medical Branch Magnesium 2-0 Yes [id number] 400mg Take 400 [facility] Oxide 420 8-24 mg by ity of mg Tab 00:00: mouth [place] 00 daily. [facility] Branch Magnesium 2021-0 Yes [id number] 400mg Take 400 [facility] Oxide 420 8-24 mg by ity of mg Tab 00:00: mouth [place] 00 daily. [facility] Branch Magnesium 2021-0 Yes [id number] 400mg Take 400 [facility] Oxide 420 8-24 mg by ity of mg Tab 00:00: mouth [place] 00 daily. Medical Branch Magnesium 2021-0 Yes [id number] 400mg Take 400 [facility] Oxide 420 8-24 mg by ity of mg Tab 00:00: mouth [place] 00 daily. Medical Branch Magnesium 2021-0 Yes [id number] 400mg Take 400 [facility] Oxide 420 8-24 mg by ity of mg Tab 00:00: mouth [place] 00 daily. Medical Branch Magnesium 2-0 Yes [id number] 400mg Take 400 [facility] Oxide 420 8-24 mg by ity of mg Tab 00:00: mouth [place] 00 daily. [facility] Branch Magnesium 2-0 Yes [id number] 400mg Take 400 [facility] Oxide 420 8-24 mg by ity of mg Tab 00:00: mouth [place] 00 daily. [facility] Branch Magnesium 2-0 Yes [id number] 400mg Take 400 [facility] Oxide 420 8-24 mg by ity of mg Tab 00:00: mouth [place] 00 daily. [facility] Branch Magnesium 2-0 Yes [id number] 400mg Take 400 [facility] Oxide 420 8-24 mg by ity of mg Tab 00:00: mouth [place] 00 daily. [facility] Branch Magnesium 2-0 Yes [id number] 400mg Take 400 [facility] Oxide 420 8-24 mg by ity of mg Tab 00:00: mouth [place] 00 daily. [facility] Branch Magnesium 2-0 Yes [id number] 400mg Take 400 [facility] Oxide 420 8-24 mg by ity of mg Tab 00:00: mouth [place] 00 daily. [facility] Branch Magnesium 2-0 Yes [id number] 400mg Take 400 [facility] Ox[facility] 420 8-24 mg by ity of mg Tab 00:00: mouth [place] 00 daily. [facility] Branch Magnesium 2-0 Yes [id number] 400mg Take 400 [facility] Oxide 420 8-24 mg by ity of mg Tab 00:00: mouth [place] 00 daily. [facility] Branch Magnesium 2-0 Yes [id number] 400mg Take 400 [facility] Oxide 420 8-24 mg by ity of mg Tab 00:00: mouth [place] 00 daily. [facility] Branch Magnesium 2-0 Yes [id number] 400mg Take 400 [facility] Oxide 420 8-24 mg by ity of mg Tab 00:00: mouth [place] 00 daily. [facility] Branch Magnesium 2-0 Yes [id number] 400mg Take 400 [facility] Oxide 420 8-24 mg by ity of mg Tab 00:00: mouth [place] 00 daily. [facility] Branch Magnesium 2021-0 Yes [id number] 400mg Take 400 [facility] Oxide 420 8-24 mg by ity of mg Tab 00:00: mouth [place] 00 daily. [facility] Branch Magnesium 2-0 Yes [id number] 400mg Take 400 [facility] Oxide 420 8-24 mg by ity of mg Tab 00:00: mouth [place] 00 daily. [facility] Branch Magnesium 2021-0 Yes [id number] 400mg Take 400 [facility] Oxide 420 8-24 mg by ity of mg Tab 00:00: mouth [place] 00 daily. [facility] Branch Magnesium 2-0 Yes [id number] 400mg Take 400 [facility] Oxide 420 8-24 mg by ity of mg Tab 00:00: mouth [place] 00 daily. [facility] Branch Magnesium 2-0 Yes [id number] 400mg Take 400 [facility] Oxide 420 8-24 mg by ity of mg Tab 00:00: mouth [place] 00 daily. [facility] Branch Magnesium 2-0 Yes [id number] 400mg Take 400 [facility] Oxide 420 8-24 mg by ity of mg Tab 00:00: mouth [place] 00 daily. [facility] Branch Magnesium 2-0 Yes [id number] 400mg Take 400 [facility] Oxide 420 8-24 mg by ity of mg Tab 00:00: mouth [place] 00 daily. [facility] Branch Magnesium 2-0 Yes [id number] 400mg Take 400 [facility] Ox[facility] 420 8-24 mg by ity of mg Tab 00:00: mouth [place] 00 daily. [facility] Branch Magnesium 2-0 Yes [id number] 400mg Take 400 [facility] Ox[facility] 420 8-24 mg by ity of mg Tab 00:00: mouth [place] 00 daily. [facility] Branch Magnesium 2-0 Yes [id number] 400mg Take 400 [facility] Ox[facility] 420 8-24 mg by ity of mg Tab 00:00: mouth [place] 00 daily. [facility] Branch Magnesium 2-0 Yes [id number] 400mg Take 400 [facility] Ox[facility] 420 8-24 mg by ity of mg Tab 00:00: mouth [place] 00 daily. [facility] Branch Magnesium 2-0 Yes [id number] 400mg Take 400 [facility] Ox[facility] 420 8-24 mg by ity of mg Tab 00:00: mouth [place] 00 daily. [facility] Branch Magnesium 2021-0 Yes [id number] 400mg Take 400 [facility] Ox[facility] 420 8-24 mg by ity of mg Tab 00:00: mouth 00 daily. Medical Branch Magnesium 2021-0 Yes [id number] 400mg Take 400 [facility] Ox[facility] 420 8-24 mg by ity of mg Tab 00:00: mouth 00 daily. Medical Branch Magnesium 2021-0 Yes [id number] 400mg Take 400 [facility] Ox[facility] 420 8-24 mg by ity of mg Tab 00:00: mouth 00 daily. Medical Branch Magnesium 2021-0 Yes [id number] 400mg Take 400 [facility] Ox[facility] 420 8-24 mg by ity of mg Tab 00:00: mouth 00 daily. Medical Branch Magnesium 2-0 Yes [id number] 400mg Take 400 [facility] Ox[facility] 420 8-24 mg by ity of mg Tab 00:00: mouth [place] 00 daily. [facility] Branch Magnesium 2-0 Yes [id number] 400mg Take 400 [facility] Ox[facility] 420 8-24 mg by ity of mg Tab 00:00: mouth 00 daily. Medical Branch Magnesium 2-0 Yes [id number] 400mg Take 400 [facility] Ox[facility] 420 8-24 mg by ity of mg Tab 00:00: mouth [place] 00 daily. [facility] Branch Magnesium 2-0 Yes [id number] 400mg Take 400 [facility] Ox[facility] 420 8-24 mg by ity of mg Tab 00:00: mouth [place] 00 daily. [facility] Branch Magnesium 2-0 Yes [id number] 400mg Take 400 [facility] Ox[facility] 420 8-24 mg by ity of mg Tab 00:00: mouth [place] 00 daily. [facility] Branch Magnesium 2-0 Yes [id number] 400mg Take 400 [facility] Ox[facility] 420 8-24 mg by ity of mg Tab 00:00: mouth [place] 00 daily. [facility] Branch Magnesium 2-0 Yes [id number] 400mg Take 400 [facility] Ox[facility] 420 8-24 mg by ity of mg Tab 00:00: mouth [place] 00 daily. [facility] Branch Magnesium 2-0 Yes [id number] 400mg Take 400 [facility] Ox[facility] 420 8-24 mg by ity of mg Tab 00:00: mouth [place] 00 daily. [facility] Branch Magnesium 2-0 Yes [id number] 400mg Take 400 [facility] Ox[facility] 420 8-24 mg by ity of mg Tab 00:00: mouth [place] 00 daily. [facility] Branch Magnesium 2-0 Yes [id number] 400mg Take 400 [facility] Ox[facility] 420 8-24 mg by ity of mg Tab 00:00: mouth [place] 00 daily. [facility] Branch Magnesium 2021-0 Yes [id number] 400mg Take 400 [facility] Ox[facility] 420 8-24 mg by ity of mg Tab 00:00: mouth [place] 00 daily. [facility] Branch Magnesium 2021-0 Yes [id number] 400mg Take 400 [facility] Ox[facility] 420 8-24 mg by ity of mg Tab 00:00: mouth [place] 00 daily. [facility] Branch Magnesium 2021-0 Yes [id number] 400mg Take 400 [facility] Ox[facility] 420 8-24 mg by ity of mg Tab 00:00: mouth [place] 00 daily. [facility] Branch Magnesium 2021-0 Yes [id number] 400mg Take 400 [facility] Ox[facility] 420 8-24 mg by ity of mg Tab 00:00: mouth [place] 00 daily. [facility] Branch Magnesium 2-0 Yes [id number] 400mg Take 400 [facility] Ox[facility] 420 8-24 mg by ity of mg Tab 00:00: mouth [place] 00 daily. [facility] Branch Magnesium 2-0 Yes [id number] 400mg Take 400 [facility] Ox[facility] 420 8-24 mg by ity of mg Tab 00:00: mouth [place] 00 daily. [facility] Branch Magnesium 2-0 Yes [id number] 400mg Take 400 [facility] Ox[facility] 420 8-24 mg by ity of mg Tab 00:00: mouth [place] 00 daily. [facility] Magnesium 2-0 Yes [id number] 400mg Take 400 [facility] Ox[facility] 420 8-24 mg by ity of mg Tab 00:00: mouth [place] 00 daily. [facility] Magnesium 2-0 Yes [id number] 400mg Take 400 [facility] Ox[facility] 420 8-24 mg by ity of mg Tab 00:00: mouth [place] 00 daily. [facility] Magnesium 2-0 Yes [id number] 400mg Take 400 [facility] Ox[facility] 420 8-24 mg by ity of mg Tab 00:00: mouth [place] 00 daily. [facility] Magnesium 2-0 Yes [id number] 400mg Take 400 [facility] Ox[facility] 420 8-24 mg by ity of mg Tab 00:00: mouth [place] 00 daily. [facility] Magnesium 2-0 Yes [id number] 400mg Take 400 [facility] Ox[facility] 420 8-24 mg by ity of mg Tab 00:00: mouth [place] 00 daily. [facility] Branch Magnesium 2-0 Yes [id number] 400mg Take 400 [facility] Ox[facility] 420 8-24 mg by ity of mg Tab 00:00: mouth 00 daily. [facility] Branch Magnesium 2-0 Yes [id number] 400mg Take 400 [facility] 420 8-24 mg by ity of mg Tab 00:00: mouth 00 daily. [facility] Branch Magnesium 2021-0 Yes [id number] 400mg Take 400 [facility] Ox[facility] 420 8-24 mg by ity of mg Tab 00:00: mouth [place] 00 daily. [facility] Magnesium 2-0 Yes [id number] 400mg Take 400 [facility] Ox[facility] 420 8-24 mg by ity of mg Tab 00:00: mouth 00 daily. [facility] Branch Magnesium 2-0 Yes [id number] 400mg Take 400 [facility] Oxide 420 8-24 mg by ity of mg Tab 00:00: mouth 00 daily. [facility] Branch Magnesium 2-0 Yes [id number] 400mg Take 400 [facility] Ox[facility] 420 8-24 mg by ity of mg Tab 00:00: mouth 00 daily. [facility] Branch Magnesium 2-0 Yes [id number] 400mg Take 400 [facility] Oxide 420 8-24 mg by ity of mg Tab 00:00: mouth 00 daily. [facility] Branch Magnesium 2-0 Yes [id number] 400mg Take 400 [facility] Ox[facility] 420 8-24 mg by ity of mg Tab 00:00: mouth [place] 00 daily. [facility] Magnesium 2-0 Yes [id number] 400mg Take 400 [facility] Oxide 420 8-24 mg by ity of mg Tab 00:00: mouth [place] 00 daily. [facility] Magnesium 2022-0 Yes [id number] 400mg Take 400 [facility] Ox[facility] 420 8-24 mg by ity of mg Tab 00:00: mouth [place] 00 daily. [facility] Magnesium 2-0 Yes [id number] 400mg Take 400 [facility] Ox[facility] 420 8-24 mg by ity of mg Tab 00:00: mouth [place] 00 daily. [facility] Magnesium 2022-0 Yes [id number] 400mg Take 400 [facility] Ox[facility] 420 8-24 mg by ity of mg Tab 00:00: mouth [place] 00 daily. [facility] Magnesium 2021-0 Yes [id number] 400mg Take 400 [facility] Ox[facility] 420 8-24 mg by ity of mg Tab 00:00: mouth [place] 00 daily. [facility] Magnesium 2021-0 Yes [id number] 400mg Take 400 [facility] Ox[facility] 420 8-24 mg by ity of mg Tab 00:00: mouth [place] 00 daily. [facility] Magnesium 2021-0 Yes [id number] 400mg Take 400 [facility] Ox[facility] 420 8-24 mg by ity of mg Tab 00:00: mouth [place] 00 daily. [facility] Magnesium 2021-0 Yes [id number] 400mg Take 400 [facility] Ox[facility] 420 8-24 mg by ity of mg Tab 00:00: mouth [place] 00 daily. [facility] Branch Magnesium 0 Yes [id number] 400mg Take 400 [facility] Ox[facility] 420 8-24 mg by ity of mg Tab 00:00: mouth [place] 00 daily. [facility] Magnesium 2021-0 Yes [id number] 400mg Take 400 [facility] Ox[facility] 420 8-24 mg by ity of mg Tab 00:00: mouth [place] 00 daily. [facility] Branch Magnesium 0 Yes [id number] 400mg Take 400 [facility] Oxide 420 8-24 mg by ity of mg Tab 00:00: mouth [place] 00 daily. [facility] Magnesium 0 Yes [id number] 400mg Take 400 [facility] Oxide 420 8-24 mg by ity of mg Tab 00:00: mouth [place] 00 daily. [facility] Magnesium 2021-0 Yes [id number] 400mg Take 400 [facility] Ox[facility] 420 8-24 mg by ity of mg Tab 00:00: mouth [place] 00 daily. [facility] Magnesium 2021-0 Yes [id number] 400mg Take 400 [facility] Ox[facility] 420 8-24 mg by ity of mg Tab 00:00: mouth [place] 00 daily. [facility] Magnesium 2021-0 Yes [id number] 400mg Take 400 [facility] Oxide 420 8-24 mg by ity of mg Tab 00:00: mouth [place] 00 daily. [facility] Magnesium 2021-0 Yes [id number] 400mg Take 400 [facility] Oxide 420 8-24 mg by ity of mg Tab 00:00: mouth [place] 00 daily. [facility] Branch acetaminoph 2021-0 2022- No 2745 1{tbl} Take 1 [facility] n[facility] en-codeine 8-24 10-21 tablet by ity of (TYLENOL-CO 00:00: 00:00 mouth [place] CAMPBELLINE #3) 00 :00 every 6 Medical 300-30 mg (six) Branch tablet hours as needed for Pain (scale 7-10). Indication s: acute pain, chronic pain triamcinolo 2022-0 Yes [id number] Apply to [facility] ne 8-10 area(s) 2 ity of acetonide 00:00: (two) [place] 0.1 % cream 00 times Medical daily. Branch Clobetasol 2022-0 Yes [id number] Apply to [facility] Propionate 8-10 area(s) 2 ity of 0.05 % 00:00: (two) [place] lotion 00 times Medical daily as Branch needed for Rash or Itching. triamcinolo 2022-0 Yes [id number] Apply to [facility] ne 8-10 area(s) 2 ity of acetonide 00:00: (two) [place] 0.1 % cream 00 times Medical daily. Branch Clobetasol 2022-0 Yes [id number] Apply to [facility] Propionate 8-10 area(s) 2 ity of 0.05 % 00:00: (two) [place] lotion 00 times Medical daily as Branch needed for Rash or Itching. triamcinolo 2022-0 Yes [id number] Apply to [facility] ne 8-10 area(s) 2 ity of acetonide 00:00: (two) [place] 0.1 % cream 00 times Medical daily. Branch Clobetasol 2022-0 Yes [id number] Apply to [facility] Propionate 8-10 area(s) 2 ity of 0.05 % 00:00: (two) [place] lotion 00 times Medical daily as Branch needed for Rash or Itching. triamcinolo 2022-0 Yes [id number] Apply to [facility] ne 8-10 area(s) 2 ity of acetonide 00:00: (two) [place] 0.1 % cream 00 times Medical daily. Branch Clobetasol 2022-0 Yes [id number] Apply to [facility] Propionate 8-10 area(s) 2 ity of 0.05 % 00:00: (two) [place] lotion 00 times Medical daily as Branch needed for Rash or Itching. triamcinolo 2022-0 Yes [id number] Apply to [facility] ne 8-10 area(s) 2 ity of acetonide 00:00: (two) [place] 0.1 % cream 00 times Medical daily. Branch Clobetasol 2022-0 Yes [id number] Apply to [facility] Propionate 8-10 area(s) 2 ity of 0.05 % 00:00: (two) [place] lotion 00 times Medical daily as Branch needed for Rash or Itching. triamcinolo 2022-0 Yes [id number] Apply to [facility] ne 8-10 area(s) 2 ity of acetonide 00:00: (two) [place] 0.1 % cream 00 times Medical daily. Branch Clobetasol 2022-0 Yes [id number] Apply to [facility] Propionate 8-10 area(s) 2 ity of 0.05 % 00:00: (two) [place] lotion 00 times Medical daily as Branch needed for Rash or Itching. triamcinolo 2022-0 Yes [id number] Apply to [facility] ne 8-10 area(s) 2 ity of acetonide 00:00: (two) [place] 0.1 % cream 00 times Medical daily. Branch Clobetasol 2022-0 Yes [id number] Apply to [facility] Propionate 8-10 area(s) 2 ity of 0.05 % 00:00: (two) [place] lotion 00 times Medical daily as Branch needed for Rash or Itching. triamcinolo 2022-0 Yes [id number] Apply to [facility] ne 8-10 area(s) 2 ity of acetonide 00:00: (two) [place] 0.1 % cream 00 times Medical daily. Branch Clobetasol 2022-0 Yes [id number] Apply to [facility] Propionate 8-10 area(s) 2 ity of 0.05 % 00:00: (two) [place] lotion 00 times Medical daily as Branch needed for Rash or Itching. triamcinolo 2022-0 Yes [id number] Apply to [facility] ne 8-10 area(s) 2 ity of acetonide 00:00: (two) [place] 0.1 % cream 00 times Medical daily. Branch Clobetasol 2022-0 Yes [id number] Apply to [facility] Propionate 8-10 area(s) 2 ity of 0.05 % 00:00: (two) [place] lotion 00 times Medical daily as Branch needed for Rash or Itching. triamcinolo 2022-0 Yes [id number] Apply to [facility] ne 8-10 area(s) 2 ity of acetonide 00:00: (two) [place] 0.1 % cream 00 times Medical daily. Branch Clobetasol 2022-0 Yes [id number] Apply to [facility] Propionate 8-10 area(s) 2 ity of 0.05 % 00:00: (two) [place] lotion 00 times Medical daily as Branch needed for Rash or Itching. triamcinolo 2022-0 Yes [id number] Apply to [facility] ne 8-10 area(s) 2 ity of acetonide 00:00: (two) [place] 0.1 % cream 00 times Medical daily. Branch Clobetasol 2022-0 Yes [id number] Apply to [facility] Propionate 8-10 area(s) 2 ity of 0.05 % 00:00: (two) [place] lotion 00 times Medical daily as Branch needed for Rash or Itching. triamcinolo 2022-0 Yes [id number] Apply to [facility] ne 8-10 area(s) 2 ity of acetonide 00:00: (two) [place] 0.1 % cream 00 times Medical daily. Branch Clobetasol 2022-0 Yes [id number] Apply to [facility] Propionate 8-10 area(s) 2 ity of 0.05 % 00:00: (two) [place] lotion 00 times Medical daily as Branch needed for Rash or Itching. triamcinolo 2022-0 Yes [id number] Apply to [facility] ne 8-10 area(s) 2 ity of acetonide 00:00: (two) [place] 0.1 % cream 00 times Medical daily. Branch Clobetasol 2022-0 Yes [id number] Apply to [facility] Propionate 8-10 area(s) 2 ity of 0.05 % 00:00: (two) [place] lotion 00 times Medical daily as Branch needed for Rash or Itching. triamcinolo 2022-0 Yes [id number] Apply to [facility] ne 8-10 area(s) 2 ity of acetonide 00:00: (two) [place] 0.1 % cream 00 times Medical daily. Branch Clobetasol 2022-0 Yes [id number] Apply to [facility] Propionate 8-10 area(s) 2 ity of 0.05 % 00:00: (two) [place] lotion 00 times Medical daily as Branch needed for Rash or Itching. triamcinolo 2022-0 Yes [id number] Apply to [facility] ne 8-10 area(s) 2 ity of acetonide 00:00: (two) [place] 0.1 % cream 00 times Medical daily. Branch Clobetasol 2022-0 Yes [id number] Apply to [facility] Propionate 8-10 area(s) 2 ity of 0.05 % 00:00: (two) [place] lotion 00 times Medical daily as Branch needed for Rash or Itching. triamcinolo 2022-0 Yes [id number] Apply to Univers ne 8-10 area(s) 2 ity of acetonide 00:00: (two) [place] 0.1 % cream 00 times Medical daily. [facility] Clobetasol 2022-0 Yes [id number] Apply to [facility] Propionate 8-10 area(s) 2 ity of 0.05 % 00:00: (two) [place] lotion 00 times Medical daily as Branch needed for Rash or Itching. triamcinolo 2022-0 Yes [id number] Apply to [facility] ne 8-10 area(s) 2 ity of acetonide 00:00: (two) [place] 0.1 % cream 00 times Medical daily. [facility] Clobetasol 2022-0 Yes [id number] Apply to [facility] Propionate 8-10 area(s) 2 ity of 0.05 % 00:00: (two) [place] lotion 00 times Medical daily as Branch needed for Rash or Itching. triamcinolo 2022-0 Yes [id number] Apply to [facility] ne 8-10 area(s) 2 ity of acetonide 00:00: (two) [place] 0.1 % cream 00 times Medical daily. Branch Clobetasol 2022-0 Yes [id number] Apply to [facility] Propionate 8-10 area(s) 2 ity of 0.05 % 00:00: (two) [place] lotion 00 times Medical daily as Branch needed for Rash or Itching. triamcinolo 2022-0 Yes [id number] Apply to [facility] ne 8-10 area(s) 2 ity of acetonide 00:00: (two) [place] 0.1 % cream 00 times Medical daily. [facility] Clobetasol 2022-0 Yes [id number] Apply to [facility] Propionate 8-10 area(s) 2 ity of 0.05 % 00:00: (two) [place] lotion 00 times Medical daily as Branch needed for Rash or Itching. triamcinolo 2022-0 Yes [id number] Apply to [facility] ne 8-10 area(s) 2 ity of acetonide 00:00: (two) [place] 0.1 % cream 00 times Medical daily. Branch Clobetasol 2022-0 Yes [id number] Apply to [facility] Propionate 8-10 area(s) 2 ity of 0.05 % 00:00: (two) [place] lotion 00 times Medical daily as Branch needed for Rash or Itching. triamcinolo 2022-0 Yes [id number] Apply to [facility] ne 8-10 area(s) 2 ity of acetonide 00:00: (two) [place] 0.1 % cream 00 times Medical daily. [facility] Clobetasol 2022-0 Yes [id number] Apply to [facility] Propionate 8-10 area(s) 2 ity of 0.05 % 00:00: (two) [place] lotion 00 times Medical daily as Branch needed for Rash or Itching. triamcinolo 2022-0 Yes [id number] Apply to [facility] ne 8-10 area(s) 2 ity of acetonide 00:00: (two) [place] 0.1 % cream 00 times Medical daily. Branch Clobetasol 2022-0 Yes [id number] Apply to [facility] Propionate 8-10 area(s) 2 ity of 0.05 % 00:00: (two) [place] lotion 00 times Medical daily as Branch needed for Rash or Itching. triamcinolo 2022-0 Yes [id number] Apply to [facility] ne 8-10 area(s) 2 ity of acetonide 00:00: (two) [place] 0.1 % cream 00 times Medical daily. Branch Clobetasol 2022-0 Yes [id number] Apply to [facility] Propionate 8-10 area(s) 2 ity of 0.05 % 00:00: (two) [place] lotion 00 times Medical daily as Branch needed for Rash or Itching. triamcinolo 2022-0 Yes [id number] Apply to [facility] ne 8-10 area(s) 2 ity of acetonide 00:00: (two) [place] 0.1 % cream 00 times Medical daily. [facility] Clobetasol 2022-0 Yes [id number] Apply to [facility] Propionate 8-10 area(s) 2 ity of 0.05 % 00:00: (two) [place] lotion 00 times Medical daily as Branch needed for Rash or Itching. triamcinolo 2022-0 Yes [id number] Apply to [facility] ne 8-10 area(s) 2 ity of acetonide 00:00: (two) [place] 0.1 % cream 00 times Medical daily. Branch Clobetasol 2022-0 Yes [id number] Apply to [facility] Propionate 8-10 area(s) 2 ity of 0.05 % 00:00: (two) [place] lotion 00 times Medical daily as Branch needed for Rash or Itching. triamcinolo 2022-0 Yes [id number] Apply to [facility] ne 8-10 area(s) 2 ity of acetonide 00:00: (two) [place] 0.1 % cream 00 times Medical daily. Branch Clobetasol 2022-0 Yes [id number] Apply to [facility] Propionate 8-10 area(s) 2 ity of 0.05 % 00:00: (two) [place] lotion 00 times Medical daily as Branch needed for Rash or Itching. triamcinolo 2022-0 Yes [id number] Apply to [facility] ne 8-10 area(s) 2 ity of acetonide 00:00: (two) [place] 0.1 % cream 00 times Medical daily. Branch Clobetasol 2022-0 Yes [id number] Apply to [facility] Propionate 8-10 area(s) 2 ity of 0.05 % 00:00: (two) [place] lotion 00 times Medical daily as Branch needed for Rash or Itching. triamcinolo 2022-0 Yes [id number] Apply to [facility] ne 8-10 area(s) 2 ity of acetonide 00:00: (two) [place] 0.1 % cream 00 times Medical daily. [facility] Clobetasol 2022-0 Yes [id number] Apply to [facility] Propionate 8-10 area(s) 2 ity of 0.05 % 00:00: (two) [place] lotion 00 times Medical daily as Branch needed for Rash or Itching. triamcinolo 2022-0 Yes [id number] Apply to [facility] ne 8-10 area(s) 2 ity of acetonide 00:00: (two) [place] 0.1 % cream 00 times Medical daily. [facility] Clobetasol 2022-0 Yes [id number] Apply to [facility] Propionate 8-10 area(s) 2 ity of 0.05 % 00:00: (two) [place] lotion 00 times Medical daily as Branch needed for Rash or Itching. triamcinolo 2022-0 Yes [id number] Apply to [facility] ne 8-10 area(s) 2 ity of acetonide 00:00: (two) [place] 0.1 % cream 00 times Medical daily. Branch Clobetasol 2022-0 Yes [id number] Apply to [facility] Propionate 8-10 area(s) 2 ity of 0.05 % 00:00: (two) [place] lotion 00 times Medical daily as Branch needed for Rash or Itching. triamcinolo 2022-0 Yes [id number] Apply to [facility] ne 8-10 area(s) 2 ity of acetonide 00:00: (two) [place] 0.1 % cream 00 times Medical daily. Branch Clobetasol 2022-0 Yes [id number] Apply to [facility] Propionate 8-10 area(s) 2 ity of 0.05 % 00:00: (two) [place] lotion 00 times Medical daily as Branch needed for Rash or Itching. triamcinolo 2022-0 Yes [id number] Apply to [facility] ne 8-10 area(s) 2 ity of acetonide 00:00: (two) [place] 0.1 % cream 00 times Medical daily. Branch Clobetasol 2022-0 Yes [id number] Apply to [facility] Propionate 8-10 area(s) 2 ity of 0.05 % 00:00: (two) [place] lotion 00 times Medical daily as Branch needed for Rash or Itching. triamcinolo 2022-0 Yes [id number] Apply to [facility] ne 8-10 area(s) 2 ity of acetonide 00:00: (two) [place] 0.1 % cream 00 times Medical daily. [facility] Clobetasol 2022-0 Yes [id number] Apply to [facility] Propionate 8-10 area(s) 2 ity of 0.05 % 00:00: (two) [place] lotion 00 times Medical daily as Branch needed for Rash or Itching. triamcinolo 2022-0 Yes [id number] Apply to [facility] ne 8-10 area(s) 2 ity of acetonide 00:00: (two) [place] 0.1 % cream 00 times Medical daily. [facility] Clobetasol 2022-0 Yes [id number] Apply to [facility] Propionate 8-10 area(s) 2 ity of 0.05 % 00:00: (two) [place] lotion 00 times Medical daily as Branch needed for Rash or Itching. triamcinolo 2022-0 Yes [id number] Apply to [facility] ne 8-10 area(s) 2 ity of acetonide 00:00: (two) [place] 0.1 % cream 00 times Medical daily. Branch Clobetasol 2022-0 Yes [id number] Apply to [facility] Propionate 8-10 area(s) 2 ity of 0.05 % 00:00: (two) [place] lotion 00 times Medical daily as Branch needed for Rash or Itching. triamcinolo 2022-0 Yes [id number] Apply to [facility] ne 8-10 area(s) 2 ity of acetonide 00:00: (two) [place] 0.1 % cream 00 times Medical daily. Branch Clobetasol 2022-0 Yes [id number] Apply to [facility] Propionate 8-10 area(s) 2 ity of 0.05 % 00:00: (two) [place] lotion 00 times Medical daily as Branch needed for Rash or Itching. triamcinolo 2022-0 Yes [id number] Apply to [facility] ne 8-10 area(s) 2 ity of acetonide 00:00: (two) [place] 0.1 % cream 00 times Medical daily. Branch Clobetasol 2022-0 Yes [id number] Apply to [facility] Propionate 8-10 area(s) 2 ity of 0.05 % 00:00: (two) [place] lotion 00 times Medical daily as Branch needed for Rash or Itching. triamcinolo 2022-0 Yes [id number] Apply to [facility] ne 8-10 area(s) 2 ity of acetonide 00:00: (two) [place] 0.1 % cream 00 times Medical daily. Branch Clobetasol 2022-0 Yes [id number] Apply to [facility] Propionate 8-10 area(s) 2 ity of 0.05 % 00:00: (two) [place] lotion 00 times Medical daily as Branch needed for Rash or Itching. triamcinolo 2022-0 Yes [id number] Apply to [facility] ne 8-10 area(s) 2 ity of acetonide 00:00: (two) [place] 0.1 % cream 00 times Medical daily. Branch Clobetasol 2022-0 Yes [id number] Apply to [facility] Propionate 8-10 area(s) 2 ity of 0.05 % 00:00: (two) [place] lotion 00 times Medical daily as Branch needed for Rash or Itching. triamcinolo 2022-0 Yes [id number] Apply to [facility] ne 8-10 area(s) 2 ity of acetonide 00:00: (two) [place] 0.1 % cream 00 times Medical daily. Branch Clobetasol 2022-0 Yes [id number] Apply to [facility] Propionate 8-10 area(s) 2 ity of 0.05 % 00:00: (two) [place] lotion 00 times Medical daily as Branch needed for Rash or Itching. triamcinolo 2022-0 Yes [id number] Apply to [facility] ne 8-10 area(s) 2 ity of acetonide 00:00: (two) [place] 0.1 % cream 00 times Medical daily. Branch Clobetasol 2022-0 Yes [id number] Apply to [facility] Propionate 8-10 area(s) 2 ity of 0.05 % 00:00: (two) [place] lotion 00 times Medical daily as Branch needed for Rash or Itching. triamcinolo 2022-0 Yes [id number] Apply to [facility] ne 8-10 area(s) 2 ity of acetonide 00:00: (two) [place] 0.1 % cream 00 times Medical daily. Branch Clobetasol 2022-0 Yes [id number] Apply to [facility] Propionate 8-10 area(s) 2 ity of 0.05 % 00:00: (two) [place] lotion 00 times Medical daily as Branch needed for Rash or Itching. triamcinolo 2022-0 Yes [id number] Apply to [facility] ne 8-10 area(s) 2 ity of acetonide 00:00: (two) [place] 0.1 % cream 00 times Medical daily. Branch Clobetasol 2022-0 Yes [id number] Apply to [facility] Propionate 8-10 area(s) 2 ity of 0.05 % 00:00: (two) [place] lotion 00 times Medical daily as Branch needed for Rash or Itching. triamcinolo 2022-0 Yes [id number] Apply to [facility] ne 8-10 area(s) 2 ity of acetonide 00:00: (two) [place] 0.1 % cream 00 times Medical daily. Branch Clobetasol 2022-0 Yes [id number] Apply to [facility] Propionate 8-10 area(s) 2 ity of 0.05 % 00:00: (two) [place] lotion 00 times Medical daily as Branch needed for Rash or Itching. triamcinolo 2022-0 Yes [id number] Apply to [facility] ne 8-10 area(s) 2 ity of acetonide 00:00: (two) [place] 0.1 % cream 00 times Medical daily. Branch Clobetasol 2022-0 Yes [id number] Apply to [facility] Propionate 8-10 area(s) 2 ity of 0.05 % 00:00: (two) [place] lotion 00 times Medical daily as Branch needed for Rash or Itching. triamcinolo 2022-0 Yes [id number] Apply to [facility] ne 8-10 area(s) 2 ity of acetonide 00:00: (two) [place] 0.1 % cream 00 times Medical daily. Branch Clobetasol 2022-0 Yes [id number] Apply to [facility] Propionate 8-10 area(s) 2 ity of 0.05 % 00:00: (two) [place] lotion 00 times Medical daily as Branch needed for Rash or Itching. triamcinolo 2022-0 Yes [id number] Apply to [facility] ne 8-10 area(s) 2 ity of acetonide 00:00: (two) [place] 0.1 % cream 00 times Medical daily. Branch Clobetasol 2022-0 Yes [id number] Apply to [facility] Propionate 8-10 area(s) 2 ity of 0.05 % 00:00: (two) [place] lotion 00 times Medical daily as Branch needed for Rash or Itching. triamcinolo 2022-0 Yes [id number] Apply to [facility] ne 8-10 area(s) 2 ity of acetonide 00:00: (two) [place] 0.1 % cream 00 times Medical daily. Branch Clobetasol 2022-0 Yes [id number] Apply to [facility] Propionate 8-10 area(s) 2 ity of 0.05 % 00:00: (two) [place] lotion 00 times Medical daily as Branch needed for Rash or Itching. triamcinolo 2022-0 Yes [id number] Apply to [facility] ne 8-10 area(s) 2 ity of acetonide 00:00: (two) [place] 0.1 % cream 00 times Medical daily. Branch Clobetasol 2022-0 Yes [id number] Apply to [facility] Propionate 8-10 area(s) 2 ity of 0.05 % 00:00: (two) [place] lotion 00 times Medical daily as Branch needed for Rash or Itching. triamcinolo 2022-0 Yes [id number] Apply to [facility] ne 8-10 area(s) 2 ity of acetonide 00:00: (two) [place] 0.1 % cream 00 times Medical daily. Branch Clobetasol 2022-0 Yes [id number] Apply to [facility] Propionate 8-10 area(s) 2 ity of 0.05 % 00:00: (two) [place] lotion 00 times Medical daily as Branch needed for Rash or Itching. triamcinolo 2022-0 Yes [id number] Apply to [facility] ne 8-10 area(s) 2 ity of acetonide 00:00: (two) [place] 0.1 % cream 00 times Medical daily. Branch Clobetasol 2022-0 Yes [id number] Apply to [facility] Propionate 8-10 area(s) 2 ity of 0.05 % 00:00: (two) [place] lotion 00 times Medical daily as Branch needed for Rash or Itching. triamcinolo 2022-0 Yes [id number] Apply to [facility] ne 8-10 area(s) 2 ity of acetonide 00:00: (two) [place] 0.1 % cream 00 times Medical daily. Branch Clobetasol 2022-0 Yes [id number] Apply to [facility] Propionate 8-10 area(s) 2 ity of 0.05 % 00:00: (two) [place] lotion 00 times Medical daily as Branch needed for Rash or Itching. triamcinolo 2022-0 Yes [id number] Apply to [facility] ne 8-10 area(s) 2 ity of acetonide 00:00: (two) [place] 0.1 % cream 00 times Medical daily. Branch Clobetasol 2022-0 Yes [id number] Apply to [facility] Propionate 8-10 area(s) 2 ity of 0.05 % 00:00: (two) [place] lotion 00 times Medical daily as Branch needed for Rash or Itching. triamcinolo 2022-0 Yes [id number] Apply to [facility] ne 8-10 area(s) 2 ity of acetonide 00:00: (two) [place] 0.1 % cream 00 times Medical daily. Branch Clobetasol 2022-0 Yes [id number] Apply to [facility] Propionate 8-10 area(s) 2 ity of 0.05 % 00:00: (two) [place] lotion 00 times Medical daily as Branch needed for Rash or Itching. triamcinolo 2022-0 Yes [id number] Apply to [facility] ne 8-10 area(s) 2 ity of acetonide 00:00: (two) [place] 0.1 % cream 00 times Medical daily. Branch Clobetasol 2022-0 Yes [id number] Apply to [facility] Propionate 8-10 area(s) 2 ity of 0.05 % 00:00: (two) [place] lotion 00 times Medical daily as Branch needed for Rash or Itching. triamcinolo 2022-0 Yes [id number] Apply to [facility] ne 8-10 area(s) 2 ity of acetonide 00:00: (two) [place] 0.1 % cream 00 times Medical daily. Branch Clobetasol 2022-0 Yes [id number] Apply to [facility] Propionate 8-10 area(s) 2 ity of 0.05 % 00:00: (two) [place] lotion 00 times Medical daily as Branch needed for Rash or Itching. triamcinolo 2022-0 Yes [id number] Apply to [facility] ne 8-10 area(s) 2 ity of acetonide 00:00: (two) [place] 0.1 % cream 00 times Medical daily. Branch Clobetasol 2022-0 Yes [id number] Apply to [facility] Propionate 8-10 area(s) 2 ity of 0.05 % 00:00: (two) [place] lotion 00 times Medical daily as Branch needed for Rash or Itching. triamcinolo 2022-0 Yes [id number] Apply to [facility] ne 8-10 area(s) 2 ity of acetonide 00:00: (two) [place] 0.1 % cream 00 times Medical daily. Branch Clobetasol 2022-0 Yes [id number] Apply to [facility] Propionate 8-10 area(s) 2 ity of 0.05 % 00:00: (two) [place] lotion 00 times Medical daily as Branch needed for Rash or Itching. triamcinolo 2022-0 Yes [id number] Apply to [facility] ne 8-10 area(s) 2 ity of acetonide 00:00: (two) [place] 0.1 % cream 00 times Medical daily. Branch Clobetasol 2022-0 Yes [id number] Apply to [facility] Propionate 8-10 area(s) 2 ity of 0.05 % 00:00: (two) [place] lotion 00 times Medical daily as Branch needed for Rash or Itching. triamcinolo 2022-0 Yes [id number] Apply to [facility] ne 8-10 area(s) 2 ity of acetonide 00:00: (two) [place] 0.1 % cream 00 times Medical daily. Branch Clobetasol 2022-0 Yes [id number] Apply to [facility] Propionate 8-10 area(s) 2 ity of 0.05 % 00:00: (two) [place] lotion 00 times Medical daily as Branch needed for Rash or Itching. triamcinolo 2022-0 Yes [id number] Apply to [facility] ne 8-10 area(s) 2 ity of acetonide 00:00: (two) [place] 0.1 % cream 00 times Medical daily. Branch Clobetasol 2022-0 Yes [id number] Apply to [facility] Propionate 8-10 area(s) 2 ity of 0.05 % 00:00: (two) [place] lotion 00 times Medical daily as Branch needed for Rash or Itching. triamcinolo 2022-0 Yes [id number] Apply to [facility] ne 8-10 area(s) 2 ity of acetonide 00:00: (two) [place] 0.1 % cream 00 times Medical daily. Branch Clobetasol 2022-0 Yes [id number] Apply to [facility] Propionate 8-10 area(s) 2 ity of 0.05 % 00:00: (two) [place] lotion 00 times Medical daily as Branch needed for Rash or Itching. triamcinolo 2022-0 Yes [id number] Apply to [facility] ne 8-10 area(s) 2 ity of acetonide 00:00: (two) [place] 0.1 % cream 00 times Medical daily. Branch Clobetasol 2022-0 Yes [id number] Apply to [facility] Propionate 8-10 area(s) 2 ity of 0.05 % 00:00: (two) [place] lotion 00 times Medical daily as Branch needed for Rash or Itching. triamcinolo 2022-0 Yes [id number] Apply to [facility] ne 8-10 area(s) 2 ity of acetonide 00:00: (two) [place] 0.1 % cream 00 times Medical daily. Branch Clobetasol 2022-0 Yes [id number] Apply to [facility] Propionate 8-10 area(s) 2 ity of 0.05 % 00:00: (two) [place] lotion 00 times Medical daily as Branch needed for Rash or Itching. triamcinolo 2022-0 Yes [id number] Apply to [facility] ne 8-10 area(s) 2 ity of acetonide 00:00: (two) [place] 0.1 % cream 00 times Medical daily. Branch Clobetasol 2022-0 Yes [id number] Apply to [facility] Propionate 8-10 area(s) 2 ity of 0.05 % 00:00: (two) [place] lotion 00 times Medical daily as Branch needed for Rash or Itching. triamcinolo 2022-0 Yes [id number] Apply to [facility] ne 8-10 area(s) 2 ity of acetonide 00:00: (two) [place] 0.1 % cream 00 times Medical daily. Branch Clobetasol 2022-0 Yes [id number] Apply to [facility] Propionate 8-10 area(s) 2 ity of 0.05 % 00:00: (two) [place] lotion 00 times Medical daily as Branch needed for Rash or Itching. triamcinolo 2022-0 Yes [id number] Apply to [facility] ne 8-10 area(s) 2 ity of acetonide 00:00: (two) [place] 0.1 % cream 00 times Medical daily. Branch Clobetasol 2022-0 Yes [id number] Apply to [facility] Propionate 8-10 area(s) 2 ity of 0.05 % 00:00: (two) [place] lotion 00 times Medical daily as Branch needed for Rash or Itching. triamcinolo 2022-0 Yes [id number] Apply to [facility] ne 8-10 area(s) 2 ity of acetonide 00:00: (two) [place] 0.1 % cream 00 times Medical daily. Branch Clobetasol 2022-0 Yes [id number] Apply to [facility] Propionate 8-10 area(s) 2 ity of 0.05 % 00:00: (two) [place] lotion 00 times Medical daily as Branch needed for Rash or Itching. triamcinolo 2022-0 Yes [id number] Apply to [facility] ne 8-10 area(s) 2 ity of acetonide 00:00: (two) [place] 0.1 % cream 00 times Medical daily. Branch Clobetasol 2022-0 Yes [id number] Apply to [facility] Propionate 8-10 area(s) 2 ity of 0.05 % 00:00: (two) [place] lotion 00 times Medical daily as Branch needed for Rash or Itching. triamcinolo 2022-0 Yes [id number] Apply to [facility] ne 8-10 area(s) 2 ity of acetonide 00:00: (two) [place] 0.1 % cream 00 times Medical daily. Branch Clobetasol 2022-0 Yes [id number] Apply to [facility] Propionate 8-10 area(s) 2 ity of 0.05 % 00:00: (two) [place] lotion 00 times Medical daily as Branch needed for Rash or Itching. triamcinolo 2022-0 Yes [id number] Apply to [facility] ne 8-10 area(s) 2 ity of acetonide 00:00: (two) [place] 0.1 % cream 00 times Medical daily. Branch Clobetasol 2022-0 Yes [id number] Apply to [facility] Propionate 8-10 area(s) 2 ity of 0.05 % 00:00: (two) [place] lotion 00 times Medical daily as Branch needed for Rash or Itching. triamcinolo 2022-0 Yes [id number] Apply to [facility] ne 8-10 area(s) 2 ity of acetonide 00:00: (two) [place] 0.1 % cream 00 times Medical daily. Branch Clobetasol 2022-0 Yes [id number] Apply to [facility] Propionate 8-10 area(s) 2 ity of 0.05 % 00:00: (two) [place] lotion 00 times Medical daily as Branch needed for Rash or Itching. triamcinolo 2022-0 Yes [id number] Apply to [facility] ne 8-10 area(s) 2 ity of acetonide 00:00: (two) [place] 0.1 % cream 00 times Medical daily. Branch Clobetasol 2022-0 Yes [id number] Apply to [facility] Propionate 8-10 area(s) 2 ity of 0.05 % 00:00: (two) [place] lotion 00 times Medical daily as Branch needed for Rash or Itching. triamcinolo 2022-0 Yes [id number] Apply to [facility] ne 8-10 area(s) 2 ity of acetonide 00:00: (two) [place] 0.1 % cream 00 times Medical daily. Branch Clobetasol 2022-0 Yes [id number] Apply to [facility] Propionate 8-10 area(s) 2 ity of 0.05 % 00:00: (two) [place] lotion 00 times Medical daily as Branch needed for Rash or Itching. triamcinolo 2022-0 Yes [id number] Apply to [facility] ne 8-10 area(s) 2 ity of acetonide 00:00: (two) [place] 0.1 % cream 00 times Medical daily. Branch Clobetasol 2022-0 Yes [id number] Apply to [facility] Propionate 8-10 area(s) 2 ity of 0.05 % 00:00: (two) [place] lotion 00 times Medical daily as Branch needed for Rash or Itching. triamcinolo 2022-0 Yes [id number] Apply to [facility] ne 8-10 area(s) 2 ity of acetonide 00:00: (two) [place] 0.1 % cream 00 times Medical daily. Branch Clobetasol 2022-0 Yes [id number] Apply to [facility] Propionate 8-10 area(s) 2 ity of 0.05 % 00:00: (two) [place] lotion 00 times Medical daily as Branch needed for Rash or Itching. triamcinolo 2022-0 Yes [id number] Apply to [facility] ne 8-10 area(s) 2 ity of acetonide 00:00: (two) [place] 0.1 % cream 00 times Medical daily. Branch Clobetasol 2022-0 Yes [id number] Apply to [facility] Propionate 8-10 area(s) 2 ity of 0.05 % 00:00: (two) [place] lotion 00 times Medical daily as Branch needed for Rash or Itching. triamcinolo 2022-0 Yes [id number] Apply to [facility] ne 8-10 area(s) 2 ity of acetonide 00:00: (two) [place] 0.1 % cream 00 times Medical daily. Branch Clobetasol 2021-0 Yes [id number] Apply to [facility] Propionate 8-10 area(s) 2 ity of 0.05 % 00:00: (two) [place] lotion 00 times Medical daily as Branch needed for Rash or Itching. triamcinolo 2021-0 Yes [id number] Apply to [facility] ne 8-10 area(s) 2 ity of acetonide 00:00: (two) [place] 0.1 % cream 00 times Medical daily. Branch Clobetasol 2021-0 Yes [id number] Apply to [facility] Propionate 8-10 area(s) 2 ity of 0.05 % 00:00: (two) [place] lotion 00 times Medical daily as Branch needed for Rash or Itching. triamcinolo 2021-0 3- No [id number] Apply to [facility] ne 8-10 07-18 area(s) 2 ity of acetonide 00:00: 00:00 (two) [place] 0.1 % cream 00 :00 times Medical daily. Branch Clobetasol 2021-0 2023- No [id number] Apply to [facility] Propionate 8-10 07-18 area(s) 2 ity of 0.05 % 00:00: 00:00 (two) [place] lotion 00 :00 times Medical daily as Branch needed for Rash or Itching. triamcinolo 2021-0 2023- No [id number] Apply to [facility] ne 8-10 07-18 area(s) 2 ity of acetonide 00:00: 00:00 (two) [place] 0.1 % cream 00 :00 times Medical daily. [facility] Clobetasol 2021-0 2023- No [id number] Apply to [facility] Propionate 8-10 07-18 area(s) 2 ity of 0.05 % 00:00: 00:00 (two) [place] lotion 00 :00 times Medical daily as Branch needed for Rash or Itching. fluticasone 2021-0 Yes [id number] 2{spray Use 2 [facility] propionate 8-05 } Sprays in ity of 50 00:00: each [place] mcg/actuati 00 nostril in Ar dical on nasal the Branch spray morning. fluticasone 2021-0 Yes [id number] 2{spray Use 2 [facility] propionate 8-05 } Sprays in ity of 50 00:00: each [place] mcg/actuati 00 nostril in Me dical on nasal the Branch spray morning. fluticasone 2021-0 Yes [id number] 2{spray Use 2 [facility] propionate 8-05 } Sprays in ity of 50 00:00: each [place] mcg/actuati 00 nostril in Me dical on nasal the Branch spray morning. fluticasone 2021-0 Yes [id number] 2{spray Use 2 [facility] propionate 8-05 } Sprays in ity of 50 00:00: each [place] mcg/actuati 00 nostril in Me dical on nasal the Branch spray morning. fluticasone 2021-0 Yes [id number] 2{spray Use 2 [facility] propionate 8-05 } Sprays in ity of 50 00:00: each [place] mcg/actuati 00 nostril in Me dical on nasal the Branch spray morning. fluticasone 2021-0 Yes [id number] 2{spray Use 2 [facility] propionate 8-05 } Sprays in ity of 50 00:00: each [place] mcg/actuati 00 nostril in Me dical on nasal the Branch spray morning. fluticasone 2021-0 Yes [id number] 2{spray Use 2 [facility] propionate 8-05 } Sprays in ity of 50 00:00: each [place] mcg/actuati 00 nostril in Me dical on nasal the Branch spray morning. fluticasone 2021-0 Yes [id number] 2{spray Use 2 [facility] propionate 8-05 } Sprays in ity of 50 00:00: each [place] mcg/actuati 00 nostril in Me dical on nasal the Branch spray morning. fluticasone 2021-0 Yes [id number] 2{spray Use 2 [facility] propionate 8-05 } Sprays in ity of 50 00:00: each [place] mcg/actuati 00 nostril in Me dical on nasal the Branch spray morning. fluticasone 2021-0 Yes [id number] 2{spray Use 2 [facility] propionate 8-05 } Sprays in ity of 50 00:00: each [place] mcg/actuati 00 nostril in Me dical on nasal the Branch spray morning. fluticasone 2021-0 Yes [id number] 2{spray Use 2 [facility] propionate 8-05 } Sprays in ity of 50 00:00: each [place] mcg/actuati 00 nostril in Me dical on nasal the Branch spray morning. fluticasone 2021-0 Yes [id number] 2{spray Use 2 [facility] propionate 8-05 } Sprays in ity of 50 00:00: each [place] mcg/actuati 00 nostril in Me dical on nasal the Branch spray morning. fluticasone 2021-0 Yes [id number] 2{spray Use 2 [facility] propionate 8-05 } Sprays in ity of 50 00:00: each [place] mcg/actuati 00 nostril in Me dical on nasal the Branch spray morning. fluticasone 2021-0 Yes [id number] 2{spray Use 2 [facility] propionate 8-05 } Sprays in ity of 50 00:00: each [place] mcg/actuati 00 nostril in Me dical on nasal the Branch spray morning. fluticasone 2021-0 Yes [id number] 2{spray Use 2 [facility] propionate 8-05 } Sprays in ity of 50 00:00: each [place] mcg/actuati 00 nostril in Me dical on nasal the [facility] spray morning. fluticasone 2021-0 Yes [id number] 2{spray Use 2 [facility] prop[facility] 8-05 } Sprays in ity of 50 00:00: each [place] mcg/actuati 00 nostril in Me dical on nasal the [facility] spray morning. fluticasone 2021-0 Yes [id number] 2{spray Use 2 [facility] propionate 8-05 } Sprays in ity of 50 00:00: each [place] mcg/actuati 00 nostril in Me dical on nasal the [facility] spray morning. fluticasone 2021-0 Yes [id number] 2{spray Use 2 [facility] propionate 8-05 } Sprays in ity of 50 00:00: each [place] mcg/actuati 00 nostril in Me dical on nasal the [facility] spray morning. fluticasone 2021-0 Yes [id number] 2{spray Use 2 [facility] propionate 8-05 } Sprays in ity of 50 00:00: each [place] mcg/actuati 00 nostril in Me dical on nasal the [facility] spray morning. fluticasone 2022-0 Yes [id number] 2{spray Use 2 [facility] propionate 8-05 } Sprays in ity of 50 00:00: each [place] mcg/actuati 00 nostril in Me dical on nasal the [facility] spray morning. fluticasone 0 Yes [id number] 2{spray Use 2 [facility] propionate 8-05 } Sprays in ity of 50 00:00: each [place] mcg/actuati 00 nostril in Me dical on nasal the [facility] spray morning. fluticasone 0 Yes [id number] 2{spray Use 2 [facility] propionate 8-05 } Sprays in ity of 50 00:00: each [place] mcg/actuati 00 nostril in Me dical on nasal the [facility] spray morning. fluticasone 0 Yes [id number] 2{spray Use 2 [facility] propionate 8-05 } Sprays in ity of 50 00:00: each [place] mcg/actuati 00 nostril in Me dical on nasal the [facility] spray morning. fluticasone Yes [id number] 2{spray Use 2 [facility] propionate 8-05 } Sprays in ity of 50 00:00: each [place] mcg/actuati 00 nostril in Me dical on nasal the [facility] spray morning. fluticasone 0 Yes [id number] 2{spray Use 2 [facility] propionate 8-05 } Sprays in ity of 50 00:00: each [place] mcg/actuati 00 nostril in Me dical on nasal the [facility] spray morning. fluticasone 0 Yes [id number] 2{spray Use 2 [facility] propionate 8-05 } Sprays in ity of 50 00:00: each [place] mcg/actuati 00 nostril in Me dical on nasal the [facility] spray morning. fluticasone 0 Yes [id number] 2{spray Use 2 [facility] propionate 8-05 } Sprays in ity of 50 00:00: each [place] mcg/actuati 00 nostril in Me dical on nasal the [facility] spray morning. fluticasone 0 Yes [id number] 2{spray Use 2 [facility] propionate 8-05 } Sprays in ity of 50 00:00: each [place] mcg/actuati 00 nostril in Me dical on nasal the [facility] spray morning. fluticasone 0 Yes [id number] 2{spray Use 2 [facility] propionate 8-05 } Sprays in ity of 50 00:00: each [place] mcg/actuati 00 nostril in Me dical on nasal the [facility] spray morning. fluticasone 0 Yes [id number] 2{spray Use 2 [facility] propionate 8-05 } Sprays in ity of 50 00:00: each [place] mcg/actuati 00 nostril in Me dical on nasal the [facility] spray morning. fluticasone Yes [id number] 2{spray Use 2 [facility] propionate 8-05 } Sprays in ity of 50 00:00: each [place] mcg/actuati 00 nostril in Me dical on nasal the [facility] spray morning. fluticasone Yes [id number] 2{spray Use 2 [facility] propionate 8-05 } Sprays in ity of 50 00:00: each [place] mcg/actuati 00 nostril in Me dical on nasal the [facility] spray morning. fluticasone Yes [id number] 2{spray Use 2 [facility] propionate 8-05 } Sprays in ity of 50 00:00: each [place] mcg/actuati 00 nostril in Me dical on nasal the [facility] spray morning. fluticasone 0 Yes [id number] 2{spray Use 2 [facility] propionate 8-05 } Sprays in ity of 50 00:00: each [place] mcg/actuati 00 nostril in Me dical on nasal the [facility] spray morning. fluticasone 0 Yes [id number] 2{spray Use 2 [facility] propionate 8-05 } Sprays in ity of 50 00:00: each [place] mcg/actuati 00 nostril in Me dical on nasal the [facility] spray morning. fluticasone 0 Yes [id number] 2{spray Use 2 [facility] propionate 8-05 } Sprays in ity of 50 00:00: each [place] mcg/actuati 00 nostril in Me dical on nasal the [facility] spray morning. fluticasone 0 Yes [id number] 2{spray Use 2 [facility] propionate 8-05 } Sprays in ity of 50 00:00: each [place] mcg/actuati 00 nostril in Me dical on nasal the [facility] spray morning. fluticasone Yes [id number] 2{spray Use 2 [facility] propionate 8-05 } Sprays in ity of 50 00:00: each [place] mcg/actuati 00 nostril in Me dical on nasal the [facility] spray morning. fluticasone 2021-0 Yes [id number] 2{spray Use 2 [facility] propionate 8-05 } Sprays in ity of 50 00:00: each [place] mcg/actuati 00 nostril in Me dical on nasal the [facility] spray morning. fluticasone 2021-0 Yes [id number] 2{spray Use 2 [facility] propionate 8-05 } Sprays in ity of 50 00:00: each [place] mcg/actuati 00 nostril in Me dical on nasal the [facility] spray morning. fluticasone 2021-0 Yes [id number] 2{spray Use 2 [facility] propionate 8-05 } Sprays in ity of 50 00:00: each [place] mcg/actuati 00 nostril in Me dical on nasal the [facility] spray morning. fluticasone 2021-0 Yes [id number] 2{spray Use 2 [facility] propionate 8-05 } Sprays in ity of 50 00:00: each [place] mcg/actuati 00 nostril in Me dical on nasal the [facility] spray morning. fluticasone 2021-0 Yes [id number] 2{spray Use 2 [facility] propionate 8-05 } Sprays in ity of 50 00:00: each [place] mcg/actuati 00 nostril in Me dical on nasal the [facility] spray morning. fluticasone 2021-0 Yes [id number] 2{spray Use 2 [facility] propionate 8-05 } Sprays in ity of 50 00:00: each [place] mcg/actuati 00 nostril in Me dical on nasal the [facility] spray morning. fluticasone 2021-0 Yes [id number] 2{spray Use 2 [facility] propionate 8-05 } Sprays in ity of 50 00:00: each [place] mcg/actuati 00 nostril in Me dical on nasal the [facility] spray morning. fluticasone 2021-0 Yes [id number] 2{spray Use 2 [facility] propionate 8-05 } Sprays in ity of 50 00:00: each [place] mcg/actuati 00 nostril in Me dical on nasal the [facility] spray morning. fluticasone 2021-0 Yes [id number] 2{spray Use 2 [facility] propionate 8-05 } Sprays in ity of 50 00:00: each [place] mcg/actuati 00 nostril in Me dical on nasal the [facility] spray morning. fluticasone 2021-0 Yes [id number] 2{spray Use 2 [facility] propionate 8-05 } Sprays in ity of 50 00:00: each [place] mcg/actuati 00 nostril in Me dical on nasal the [facility] spray morning. fluticasone 2021-0 Yes [id number] 2{spray Use 2 [facility] propionate 8-05 } Sprays in ity of 50 00:00: each [place] mcg/actuati 00 nostril in Me dical on nasal the [facility] spray morning. fluticasone 2021-0 Yes [id number] 2{spray Use 2 [facility] propionate 8-05 } Sprays in ity of 50 00:00: each [place] mcg/actuati 00 nostril in Me dical on nasal the [facility] spray morning. fluticasone 2021-0 Yes [id number] 2{spray Use 2 [facility] propionate 8-05 } Sprays in ity of 50 00:00: each [place] mcg/actuati 00 nostril in Me dical on nasal the [facility] spray morning. fluticasone 2021-0 Yes [id number] 2{spray Use 2 [facility] propionate 8-05 } Sprays in ity of 50 00:00: each [place] mcg/actuati 00 nostril in Me dical on nasal the [facility] spray morning. fluticasone 2021-0 Yes [id number] 2{spray Use 2 [facility] propionate 8-05 } Sprays in ity of 50 00:00: each [place] mcg/actuati 00 nostril in Me dical on nasal the [facility] spray morning. fluticasone 2021-0 Yes [id number] 2{spray Use 2 [facility] propionate 8-05 } Sprays in ity of 50 00:00: each [place] mcg/actuati 00 nostril in Me dical on nasal the [facility] spray morning. fluticasone 2021-0 Yes [id number] 2{spray Use 2 [facility] propionate 8-05 } Sprays in ity of 50 00:00: each [place] mcg/actuati 00 nostril in Me dical on nasal the [facility] spray morning. fluticasone 2021-0 Yes [id number] 2{spray Use 2 [facility] propionate 8-05 } Sprays in ity of 50 00:00: each [place] mcg/actuati 00 nostril in Me dical on nasal the [facility] spray morning. fluticasone 2021-0 Yes [id number] 2{spray Use 2 [facility] propionate 8-05 } Sprays in ity of 50 00:00: each [place] mcg/actuati 00 nostril in Me dical on nasal the [facility] spray morning. fluticasone 2021-0 Yes [id number] 2{spray Use 2 [facility] propionate 8-05 } Sprays in ity of 50 00:00: each [place] mcg/actuati 00 nostril in Me dical on nasal the [facility] spray morning. fluticasone 2021-0 Yes [id number] 2{spray Use 2 [facility] prop[facility] 8-05 } Sprays in ity of 50 00:00: each [place] mcg/actuati 00 nostril in Me dical on nasal the [facility] spray morning. fluticasone 2021-0 Yes [id number] 2{spray Use 2 [facility] prop[facility] 8-05 } Sprays in ity of 50 00:00: each [place] mcg/actuati 00 nostril in Me dical on nasal the [facility] spray morning. fluticasone 2021-0 Yes [id number] 2{spray Use 2 [facility] propionate 8-05 } Sprays in ity of 50 00:00: each [place] mcg/actuati 00 nostril in Me dical on nasal the [facility] spray morning. fluticasone 2021-0 Yes [id number] 2{spray Use 2 [facility] propionate 8-05 } Sprays in ity of 50 00:00: each [place] mcg/actuati 00 nostril in Me dical on nasal the [facility] spray morning. fluticasone 2021-0 Yes [id number] 2{spray Use 2 [facility] propionate 8-05 } Sprays in ity of 50 00:00: each [place] mcg/actuati 00 nostril in Me dical on nasal the [facility] spray morning. fluticasone 2021-0 Yes [id number] 2{spray Use 2 [facility] propionate 8-05 } Sprays in ity of 50 00:00: each [place] mcg/actuati 00 nostril in Me dical on nasal the [facility] spray morning. fluticasone 2021-0 Yes [id number] 2{spray Use 2 [facility] propionate 8-05 } Sprays in ity of 50 00:00: each [place] mcg/actuati 00 nostril in Me dical on nasal the [facility] spray morning. fluticasone 2021-0 Yes [id number] 2{spray Use 2 [facility] propionate 8-05 } Sprays in ity of 50 00:00: each [place] mcg/actuati 00 nostril in Me dical on nasal the [facility] spray morning. fluticasone 2021-0 Yes [id number] 2{spray Use 2 [facility] prop[facility] 8-05 } Sprays in ity of 50 00:00: each [place] mcg/actuati 00 nostril in Me dical on nasal the [facility] spray morning. fluticasone 2021-0 Yes [id number] 2{spray Use 2 [facility] propionate 8-05 } Sprays in ity of 50 00:00: each [place] mcg/actuati 00 nostril in Me dical on nasal the [facility] spray morning. fluticasone 2021-0 Yes [id number] 2{spray Use 2 [facility] propionate 8-05 } Sprays in ity of 50 00:00: each [place] mcg/actuati 00 nostril in Me dical on nasal the [facility] spray morning. fluticasone 2021-0 Yes [id number] 2{spray Use 2 [facility] propionate 8-05 } Sprays in ity of 50 00:00: each [place] mcg/actuati 00 nostril in Me dical on nasal the [facility] spray morning. fluticasone 2021-0 Yes [id number] 2{spray Use 2 [facility] propionate 8-05 } Sprays in ity of 50 00:00: each [place] mcg/actuati 00 nostril in Me dical on nasal the [facility] spray morning. fluticasone 2021-0 Yes [id number] 2{spray Use 2 [facility] propionate 8-05 } Sprays in ity of 50 00:00: each [place] mcg/actuati 00 nostril in Me dical on nasal the [facility] spray morning. fluticasone 2021-0 Yes [id number] 2{spray Use 2 [facility] prop[facility] 8-05 } Sprays in ity of 50 00:00: each [place] mcg/actuati 00 nostril in Me dical on nasal the [facility] spray morning. fluticasone 2021-0 Yes [id number] 2{spray Use 2 [facility] propionate 8-05 } Sprays in ity of 50 00:00: each [place] mcg/actuati 00 nostril in Me dical on nasal the [facility] spray morning. fluticasone 2021-0 Yes [id number] 2{spray Use 2 [facility] propionate 8-05 } Sprays in ity of 50 00:00: each [place] mcg/actuati 00 nostril in Me dical on nasal the [facility] spray morning. fluticasone 2021-0 Yes [id number] 2{spray Use 2 [facility] propionate 8-05 } Sprays in ity of 50 00:00: each [place] mcg/actuati 00 nostril in Me dical on nasal the [facility] spray morning. fluticasone 2021-0 Yes [id number] 2{spray Use 2 [facility] propionate 8-05 } Sprays in ity of 50 00:00: each [place] mcg/actuati 00 nostril in Me dical on nasal the [facility] spray morning. fluticasone 2021-0 Yes [id number] 2{spray Use 2 [facility] propionate 8-05 } Sprays in ity of 50 00:00: each [place] mcg/actuati 00 nostril in Me dical on nasal the [facility] spray morning. fluticasone 2021-0 Yes [id number] 2{spray Use 2 [facility] propionate 8-05 } Sprays in ity of 50 00:00: each [place] mcg/actuati 00 nostril in Me dical on nasal the [facility] spray morning. fluticasone 2021-0 Yes [id number] 2{spray Use 2 [facility] propionate 8-05 } Sprays in ity of 50 00:00: each [place] mcg/actuati 00 nostril in Me dical on nasal the [facility] spray morning. fluticasone 2021-0 Yes [id number] 2{spray Use 2 [facility] propionate 8-05 } Sprays in ity of 50 00:00: each [place] mcg/actuati 00 nostril in Me dical on nasal the [facility] spray morning. fluticasone 2021-0 Yes [id number] 2{spray Use 2 [facility] propionate 8-05 } Sprays in ity of 50 00:00: each [place] mcg/actuati 00 nostril in Me dical on nasal the [facility] spray morning. fluticasone 2021-0 Yes [id number] 2{spray Use 2 [facility] propionate 8-05 } Sprays in ity of 50 00:00: each [place] mcg/actuati 00 nostril in Me dical on nasal the [facility] spray morning. fluticasone 0 Yes [id number] 2{spray Use 2 [facility] propionate 8-05 } Sprays in ity of 50 00:00: each [place] mcg/actuati 00 nostril in Me dical on nasal the [facility] spray morning. fluticasone 2021-0 Yes [id number] 2{spray Use 2 [facility] propionate 8-05 } Sprays in ity of 50 00:00: each [place] mcg/actuati 00 nostril in Me dical on nasal the [facility] spray morning. fluticasone 0 Yes [id number] 2{spray Use 2 [facility] propionate 8-05 } Sprays in ity of 50 00:00: each [place] mcg/actuati 00 nostril in Me dical on nasal the [facility] spray morning. fluticasone 0 Yes [id number] 2{spray Use 2 [facility] propionate 8-05 } Sprays in ity of 50 00:00: each [place] mcg/actuati 00 nostril in Me dical on nasal the [facility] spray morning. fluticasone 2021-0 Yes [id number] 2{spray Use 2 [facility] propionate 8-05 } Sprays in ity of 50 00:00: each [place] mcg/actuati 00 nostril in Me dical on nasal the [facility] spray morning. fluticasone 2021-0 Yes [id number] 2{spray Use 2 [facility] propionate 8-05 } Sprays in ity of 50 00:00: each [place] mcg/actuati 00 nostril in Me dical on nasal the [facility] spray morning. fluticasone 2021-0 Yes [id number] 2{spray Use 2 [facility] propionate 8-05 } Sprays in ity of 50 00:00: each [place] mcg/actuati 00 nostril in Me dical on nasal the [facility] spray morning. fluticasone 2021-0 Yes [id number] 2{spray Use 2 [facility] propionate 8-05 } Sprays in ity of 50 00:00: each [place] mcg/actuati 00 nostril in Me dical on nasal the [facility] spray morning. fluticasone 2021-0 Yes [id number] 2{spray Use 2 [facility] propionate 8-05 } Sprays in ity of 50 00:00: each [place] mcg/actuati 00 nostril in Me dical on nasal the [facility] spray morning. fluticasone 0 Yes [id number] 2{spray Use 2 [facility] propionate 8-05 } Sprays in ity of 50 00:00: each [place] mcg/actuati 00 nostril in Me dical on nasal the [facility] spray morning. fluticasone 0 Yes [id number] 2{spray Use 2 [facility] propionate 8-05 } Sprays in ity of 50 00:00: each [place] mcg/actuati 00 nostril in Me dical on nasal the [facility] spray morning. fluticasone 0 Yes [id number] 2{spray Use 2 [facility] propionate 8-05 } Sprays in ity of 50 00:00: each [place] mcg/actuati 00 nostril in Me dical on nasal the [facility] spray morning. fluticasone 0 Yes [id number] 2{spray Use 2 [facility] propionate 8-05 } Sprays in ity of 50 00:00: each [place] mcg/actuati 00 nostril in Me dical on nasal the [facility] spray morning. fluticasone 2021-0 Yes [id number] 2{spray Use 2 [facility] propionate 8-05 } Sprays in ity of 50 00:00: each [place] mcg/actuati 00 nostril in Me dical on nasal the [facility] spray morning. fluticasone 2021-0 Yes [id number] 2{spray Use 2 [facility] propionate 8-05 } Sprays in ity of 50 00:00: each [place] mcg/actuati 00 nostril in Me dical on nasal the [facility] spray morning. fluticasone 2021-0 Yes [id number] 2{spray Use 2 [facility] propionate 8-05 } Sprays in ity of 50 00:00: each [place] mcg/actuati 00 nostril in Me dical on nasal the [facility] spray morning. fluticasone 2021-0 Yes [id number] 2{spray Use 2 [facility] propionate 8-05 } Sprays in ity of 50 00:00: each [place] mcg/actuati 00 nostril in Me dical on nasal the [facility] spray morning. fluticasone 2021-0 Yes [id number] 2{spray Use 2 [facility] propionate 8-05 } Sprays in ity of 50 00:00: each [place] mcg/actuati 00 nostril in Me dical on nasal the [facility] spray morning. fluticasone 2021-0 Yes [id number] 2{spray Use 2 [facility] propionate 8-05 } Sprays in ity of 50 00:00: each [place] mcg/actuati 00 nostril in Me dical on nasal the [facility] spray morning. fluticasone 2021-0 Yes [id number] 2{spray Use 2 [facility] propionate 8-05 } Sprays in ity of 50 00:00: each [place] mcg/actuati 00 nostril in Me dical on nasal the [facility] spray morning. fluticasone 2021-0 Yes [id number] 2{spray Use 2 [facility] propionate 8-05 } Sprays in ity of 50 00:00: each [place] mcg/actuati 00 nostril in Me dical on nasal the [facility] spray morning. fluticasone 2021-0 Yes [id number] 2{spray Use 2 [facility] propionate 8-05 } Sprays in ity of 50 00:00: each [place] mcg/actuati 00 nostril in Me dical on nasal the [facility] spray morning. fluticasone 2021-0 Yes [id number] 2{spray Use 2 [facility] propionate 8-05 } Sprays in ity of 50 00:00: each [place] mcg/actuati 00 nostril in Me dical on nasal the [facility] spray morning. fluticasone 2021-0 Yes [id number] 2{spray Use 2 [facility] propionate 8-05 } Sprays in ity of 50 00:00: each [place] mcg/actuati 00 nostril in Me dical on nasal the [facility] spray morning. fluticasone 2021-0 Yes [id number] 2{spray Use 2 [facility] propionate 8-05 } Sprays in ity of 50 00:00: each [place] mcg/actuati 00 nostril in Me dical on nasal the [facility] spray morning. fluticasone 2021-0 Yes [id number] 2{spray Use 2 [facility] propionate 8-05 } Sprays in ity of 50 00:00: each [place] mcg/actuati 00 nostril in Me dical on nasal the [facility] spray morning. fluticasone 2021-0 Yes [id number] 2{spray Use 2 [facility] propionate 8-05 } Sprays in ity of 50 00:00: each [place] mcg/actuati 00 nostril in Me dical on nasal the [facility] spray morning. fluticasone 2021-0 Yes [id number] 2{spray Use 2 [facility] propionate 8-05 } Sprays in ity of 50 00:00: each [place] mcg/actuati 00 nostril in Me dical on nasal the [facility] spray morning. fluticasone 2021-0 Yes [id number] 2{spray Use 2 [facility] propionate 8-05 } Sprays in ity of 50 00:00: each [place] mcg/actuati 00 nostril in Me dical on nasal the [facility] spray morning. fluticasone 2021-0 Yes [id number] 2{spray Use 2 [facility] propionate 8-05 } Sprays in ity of 50 00:00: each [place] mcg/actuati 00 nostril in Me dical on nasal the [facility] spray morning. fluticasone 2021-0 Yes [id number] 2{spray Use 2 [facility] propionate 8-05 } Sprays in ity of 50 00:00: each [place] mcg/actuati 00 nostril in Me dical on nasal the [facility] spray morning. fluticasone 2021-0 Yes [id number] 2{spray Use 2 [facility] propionate 8-05 } Sprays in ity of 50 00:00: each [place] mcg/actuati 00 nostril in Me dical on nasal the [facility] spray morning. fluticasone 2021-0 Yes [id number] 2{spray Use 2 [facility] propionate 8-05 } Sprays in ity of 50 00:00: each [place] mcg/actuati 00 nostril in Me dical on nasal the [facility] spray morning. fluticasone 2021-0 Yes [id number] 2{spray Use 2 [facility] propionate 8-05 } Sprays in ity of 50 00:00: each [place] mcg/actuati 00 nostril in Me dical on nasal the [facility] spray morning. fluticasone 2021-0 Yes [id number] 2{spray Use 2 [facility] propionate 8-05 } Sprays in ity of 50 00:00: each [place] mcg/actuati 00 nostril in Me dical on nasal the [facility] spray morning. fluticasone 2021-0 Yes [id number] 2{spray Use 2 [facility] propionate 8-05 } Sprays in ity of 50 00:00: each [place] mcg/actuati 00 nostril in Me dical on nasal the [facility] spray morning. fluticasone 2022-0 Yes [id number] 2{spray Use 2 [facility] propionate 8-05 } Sprays in ity of 50 00:00: each [place] mcg/actuati 00 nostril in Me dical on nasal the [facility] spray morning. fluticasone 0 Yes [id number] 2{spray Use 2 [facility] propionate 8-05 } Sprays in ity of 50 00:00: each [place] mcg/actuati 00 nostril in Me dical on nasal the [facility] spray morning. fluticasone 0 Yes [id number] 2{spray Use 2 [facility] propionate 8-05 } Sprays in ity of 50 00:00: each [place] mcg/actuati 00 nostril in Me dical on nasal the [facility] spray morning. fluticasone 0 Yes [id number] 2{spray Use 2 [facility] propionate 8-05 } Sprays in ity of 50 00:00: each [place] mcg/actuati 00 nostril in Me dical on nasal the [facility] spray morning. fluticasone Yes [id number] 2{spray Use 2 [facility] propionate 8-05 } Sprays in ity of 50 00:00: each [place] mcg/actuati 00 nostril in Me dical on nasal the [facility] spray morning. fluticasone 0 Yes [id number] 2{spray Use 2 [facility] propionate 8-05 } Sprays in ity of 50 00:00: each [place] mcg/actuati 00 nostril in Me dical on nasal the [facility] spray morning. fluticasone 0 Yes [id number] 2{spray Use 2 [facility] propionate 8-05 } Sprays in ity of 50 00:00: each [place] mcg/actuati 00 nostril in Me dical on nasal the [facility] spray morning. fluticasone 0 Yes [id number] 2{spray Use 2 [facility] propionate 8-05 } Sprays in ity of 50 00:00: each [place] mcg/actuati 00 nostril in Me dical on nasal the [facility] spray morning. fluticasone 0 Yes [id number] 2{spray Use 2 [facility] propionate 8-05 } Sprays in ity of 50 00:00: each [place] mcg/actuati 00 nostril in Me dical on nasal the [facility] spray morning. fluticasone 0 Yes [id number] 2{spray Use 2 [facility] propionate 8-05 } Sprays in ity of 50 00:00: each [place] mcg/actuati 00 nostril in Me dical on nasal the [facility] spray morning. fluticasone 0 Yes [id number] 2{spray Use 2 [facility] propionate 8-05 } Sprays in ity of 50 00:00: each [place] mcg/actuati 00 nostril in Me dical on nasal the [facility] spray morning. fluticasone Yes [id number] 2{spray Use 2 [facility] propionate 8-05 } Sprays in ity of 50 00:00: each [place] mcg/actuati 00 nostril in Me dical on nasal the [facility] spray morning. fluticasone Yes [id number] 2{spray Use 2 [facility] propionate 8-05 } Sprays in ity of 50 00:00: each [place] mcg/actuati 00 nostril in Me dical on nasal the [facility] spray morning. fluticasone Yes [id number] 2{spray Use 2 [facility] propionate 8-05 } Sprays in ity of 50 00:00: each [place] mcg/actuati 00 nostril in Me dical on nasal the [facility] spray morning. fluticasone 0 Yes [id number] 2{spray Use 2 [facility] propionate 8-05 } Sprays in ity of 50 00:00: each [place] mcg/actuati 00 nostril in Me dical on nasal the [facility] spray morning. fluticasone 0 Yes [id number] 2{spray Use 2 [facility] propionate 8-05 } Sprays in ity of 50 00:00: each [place] mcg/actuati 00 nostril in Me dical on nasal the [facility] spray morning. fluticasone 0 Yes [id number] 2{spray Use 2 [facility] propionate 8-05 } Sprays in ity of 50 00:00: each [place] mcg/actuati 00 nostril in Me dical on nasal the [facility] spray morning. fluticasone 0 Yes [id number] 2{spray Use 2 [facility] propionate 8-05 } Sprays in ity of 50 00:00: each [place] mcg/actuati 00 nostril in Me dical on nasal the [facility] spray morning. fluticasone Yes [id number] 2{spray Use 2 [facility] propionate 8-05 } Sprays in ity of 50 00:00: each [place] mcg/actuati 00 nostril in Me dical on nasal the [facility] spray morning. fluticasone 0 Yes [id number] 2{spray Use 2 [facility] propionate 8-05 } Sprays in ity of 50 00:00: each [place] mcg/actuati 00 nostril in Me dical on nasal the [facility] spray morning. fluticasone 0 Yes [id number] 2{spray Use 2 [facility] propionate 8-05 } Sprays in ity of 50 00:00: each [place] mcg/actuati 00 nostril in Me dical on nasal the [facility] spray morning. fluticasone 0 Yes [id number] 2{spray Use 2 [facility] propionate 8-05 } Sprays in ity of 50 00:00: each [place] mcg/actuati 00 nostril in Me dical on nasal the [facility] spray morning. fluticasone Yes [id number] 2{spray Use 2 [facility] propionate 8-05 } Sprays in ity of 50 00:00: each [place] mcg/actuati 00 nostril in Me dical on nasal the [facility] spray morning. fluticasone 0 Yes [id number] 2{spray Use 2 [facility] propionate 8-05 } Sprays in ity of 50 00:00: each [place] mcg/actuati 00 nostril in Me dical on nasal the [facility] spray morning. fluticasone 0 Yes [id number] 2{spray Use 2 [facility] propionate 8-05 } Sprays in ity of 50 00:00: each [place] mcg/actuati 00 nostril in Me dical on nasal the [facility] spray morning. fluticasone 0 Yes [id number] 2{spray Use 2 [facility] propionate 8-05 } Sprays in ity of 50 00:00: each [place] mcg/actuati 00 nostril in Me dical on nasal the [facility] spray morning. fluticasone 0 Yes [id number] 2{spray Use 2 [facility] propionate 8-05 } Sprays in ity of 50 00:00: each [place] mcg/actuati 00 nostril in Me dical on nasal the [facility] spray morning. doxepin 25 2021-0 Yes [id number] 25mg Take 1 [facility] 8-03 capsule by [facility] of 00:00: mouth at [place] [address] bedtime. [facility] doxepin Yes [id number] 25mg Take 1 [facility] capsule 8-03 capsule by [facility] of 00:00: mouth at [place] [address] bedtime. [facility] doxepin Yes [id number] 25mg Take 1 [facility] capsule 8-03 capsule by [facility] of 00:00: mouth at [place] [address] bedtime. [facility] doxepin Yes [id number] 25mg Take 1 [facility] capsule 8-03 capsule by [facility] of 00:00: mouth at [place] [address] bedtime. [facility] doxepin Yes [id number] 25mg Take 1 [facility] capsule 8-03 capsule by [facility] of 00:00: mouth at [place] [address] bedtime. Medical Branch doxepin Yes [id number] 25mg Take 1 [facility] mg capsule 8-03 capsule by ity of 00:00: mouth at [place] [address] bedtime. Medical Branch doxepin Yes [id number] 25mg Take 1 [facility] mg capsule 8-03 capsule by ity of 00:00: mouth at [place] [address] bedtime. Medical Branch doxepin Yes [id number] 25mg Take 1 [facility] mg capsule 8-03 capsule by ity of 00:00: mouth at [place] [address] bedtime. Medical Branch doxepin Yes [id number] 25mg Take 1 [facility] mg capsule 8-03 capsule by ity of 00:00: mouth at [place] [address] bedtime. Medical Branch doxepin Yes [id number] 25mg Take 1 [facility] mg capsule 8-03 capsule by ity of 00:00: mouth at [place] [address] bedtime. Medical Branch doxepin Yes [id number] 25mg Take 1 [facility] mg capsule 8-03 capsule by ity of 00:00: mouth at [place] [address] bedtime. Medical Branch doxepin Yes [id number] 25mg Take 1 [facility] mg capsule 8-03 capsule by ity of 00:00: mouth at [place] [address] bedtime. Medical Branch doxepin Yes [id number] 25mg Take 1 [facility] mg capsule 8-03 capsule by ity of 00:00: mouth at [place] [address] bedtime. Medical Branch doxepin Yes [id number] 25mg Take 1 [facility] mg capsule 8-03 capsule by ity of 00:00: mouth at [place] [address] bedtime. Medical Branch doxepin Yes [id number] 25mg Take 1 [facility] mg capsule 8-03 capsule by ity of 00:00: mouth at [place] [address] bedtime. Medical Branch doxepin Yes [id number] 25mg Take 1 [facility] mg capsule 8-03 capsule by ity of 00:00: mouth at [place] [address] bedtime. Medical Branch doxepin Yes [id number] 25mg Take 1 [facility] mg capsule 8-03 capsule by ity of 00:00: mouth at [place] [address] bedtime. Medical Branch doxepin Yes [id number] 25mg Take 1 [facility] mg capsule 8-03 capsule by ity of 00:00: mouth at [place] [address] bedtime. Medical Branch doxepin Yes [id number] 25mg Take 1 [facility] mg capsule 8-03 capsule by ity of 00:00: mouth at [place] [address] bedtime. Medical Branch doxepin Yes [id number] 25mg Take 1 [facility] mg capsule 8-03 capsule by ity of 00:00: mouth at [place] [address] bedtime. Medical Branch doxepin Yes [id number] 25mg Take 1 [facility] mg capsule 8-03 capsule by ity of 00:00: mouth at [place] [address] bedtime. Medical Branch doxepin Yes [id number] 25mg Take 1 [facility] mg capsule 8-03 capsule by ity of 00:00: mouth at [place] [address] bedtime. Medical Branch doxepin Yes [id number] 25mg Take 1 [facility] mg capsule 8-03 capsule by ity of 00:00: mouth at [place] [address] bedtime. Medical Branch doxepin Yes [id number] 25mg Take 1 [facility] mg capsule 8-03 capsule by ity of 00:00: mouth at [place] [address] bedtime. Medical Branch doxepin Yes [id number] 25mg Take 1 [facility] mg capsule 8-03 capsule by ity of 00:00: mouth at [place] 00 bedtime. Medical Branch doxepin 25 0 Yes [id number] 25mg Take 1 [facility] mg capsule 8-03 capsule by ity of 00:00: mouth at [place] 00 bedtime. Medical Branch doxepin 25 0 Yes [id number] 25mg Take 1 [facility] mg capsule 8-03 capsule by ity of 00:00: mouth at [place] 00 bedtime. Medical Branch doxepin 25 0 Yes [id number] 25mg Take 1 [facility] mg capsule 8-03 capsule by ity of 00:00: mouth at [place] [address] bedtime. Medical Branch doxepin 25 0 Yes [id number] 25mg Take 1 [facility] mg capsule 8-03 capsule by ity of 00:00: mouth at [place] [address] bedtime. Medical Branch doxepin 25 0 Yes [id number] 25mg Take 1 [facility] mg capsule 8-03 capsule by ity of 00:00: mouth at [place] [address] bedtime. Medical Branch doxepin 25 2021- No [id number] 25mg Take 1 [facility] mg capsule 8-03 11-08 capsule by it y of 00:00: 00:00 mouth at [place] 00 :00 bedtime. Medical Branch benzonatate Yes [id number] 100mg Take 1 [facility] (TESSALON 7-29 capsule by itJerel) 100 00:00: mouth [place] mg capsule 00 every 8 Medica l (eight) Branch hours as needed for Cough. arformotero Yes 15ug Use 2 mL Un renetta L 15 mcg/2 7-29 as ity of mL 00:00: directed [place] nebulizer 00 in the Medical solution morning Branch and 2 mL in the evening. budesonide Yes .25mg Inhale 2 Un renetta 0.25 mg/2 7-29 mL in the ity o f mL 00:00: morning [place] nebulizer 00 and 2 mL Medica l solution in the Branch evening. benzonatate Yes [id number] 100mg Take 1 [facility] (TESSALON 7-29 capsule by itJerel) 100 00:00: mouth [place] mg capsule 00 every 8 Medica l (eight) Branch hours as needed for Cough. arformotero Yes 15ug Use 2 mL Un renetta [...] in the Branch evening. benzonatate 2022-0 Yes [id number] 100mg Take 1 [facility] (TESSALON 7-29 capsule [...] in the Branch evening. benzonatate 2022-0 Yes [id number] 100mg Take 1 [facility] (TESSALON 7-29 capsule [...] in the Branch evening. benzonatate 2022-0 Yes [id number] 100mg Take 1 [facility] (TESSALON 7-29 capsule [...] in the Branch evening. benzonatate 2022-0 Yes [id number] 100mg Take 1 [facility] (TESSALON 7-29 capsule [...] l solution in the Branch evening. benzonatate 2-0 Yes [id number] 100mg Take 1 [facility] (TESSALON 7-29 capsule [...] in the Branch evening. benzonatate 2022-0 Yes [id number] 100mg Take 1 [facility] (TESSALON 7-29 capsule [...] in the Branch evening. benzonatate 2022-0 Yes [id number] 100mg Take 1 [facility] (TESSALON 7-29 capsule [...] in the Branch evening. benzonatate 2022-0 Yes [id number] 100mg Take 1 [facility] (TESSALON 7-29 capsule by ity of [employer]) 100 00:00: mouth [place] mg capsule 00 [...] in the Branch evening. benzonatate 2022-0 Yes [id number] 100mg Take 1 [facility] (TESSALON 7-29 capsule by ity of [employer]) 100 00:00: mouth [place] mg capsule 00 [...] in the Branch evening. benzonatate 2022-0 Yes [id number] 100mg Take 1 [facility] (TESSALON 7-29 capsule [...] in the Branch evening. benzonatate 2022-0 Yes [id number] 100mg Take 1 [facility] (TESSALON 7-29 capsule by ity of [employer]) 100 00:00: mouth [place] mg capsule 00 [...] in the Branch evening. benzonatate 2022-0 Yes [id number] 100mg Take 1 [facility] (TESSALON 7-29 capsule [...] in the Branch evening. benzonatate 2021-0 Yes [id number] 100mg Take 1 [facility] (TESSALON 7-29 capsule by ity of PERLES) 100 00:00: mouth [place] mg capsule 00 every 8 Medica l (eight) Branch hours as needed for Cough. benzonatate 2021-0 Yes [id number] 100mg Take 1 [facility] (TESSALON 7-29 capsule by ity of PERLES) 100 00:00: mouth [place] mg capsule 00 every 8 Medica l (eight) Branch hours as needed for Cough. benzonatate 2021-0 Yes [id number] 100mg Take 1 [facility] (TESSALON 7-29 capsule by ity of PERLES) 100 00:00: mouth [place] mg capsule 00 every 8 Medica l (eight) Branch hours as needed for Cough. benzonatate 2021-0 Yes [id number] 100mg Take 1 [facility] (TESSALON 7-29 capsule by ity of PERLES) 100 00:00: mouth [place] mg capsule 00 every 8 Medica l (eight) Branch hours as needed for Cough. benzonatate 2021-0 Yes [id number] 100mg Take 1 [facility] (TESSALON 7-29 capsule by ity of PERLES) 100 00:00: mouth [place] mg capsule 00 every 8 Medica l (eight) Branch hours as needed for Cough. benzonatate 2021-0 Yes [id number] 100mg Take 1 [facility] (TESSALON 7-29 capsule by ity of PERLES) 100 00:00: mouth [place] mg capsule 00 every 8 Medica l (eight) Branch hours as needed for Cough. benzonatate 2021-0 Yes [id number] 100mg Take 1 [facility] (TESSALON 7-29 capsule by ity of PERLES) 100 00:00: mouth [place] mg capsule 00 every 8 Medica l (eight) Branch hours as needed for Cough. benzonatate 2021-0 Yes [id number] 100mg Take 1 [facility] (TESSALON 7-29 capsule by ity of PERLES) 100 00:00: mouth [place] mg capsule 00 every 8 Medica l (eight) Branch hours as needed for Cough. benzonatate 0 Yes [id number] 100mg Take 1 [facility] (TESSALON 7-29 capsule by ity of PERLES) 100 00:00: mouth [place] mg capsule 00 every 8 Medica l (eight) Branch hours as needed for Cough. benzonatate 0 Yes [id number] 100mg Take 1 [facility] (TESSALON 7-29 capsule by ity of PERLES) 100 00:00: mouth [place] mg capsule 00 every 8 Medica l (eight) Branch hours as needed for Cough. benzonatate Yes [id number] 100mg Take 1 [facility] (TESSALON 7-29 capsule by ity of PERLES) 100 00:00: mouth [place] mg capsule 00 every 8 Medica l (eight) Branch hours as needed for Cough. benzonatate Yes [id number] 100mg Take 1 [facility] (TESSALON 7-29 capsule by ity of PERLES) 100 00:00: mouth [place] mg capsule 00 every 8 Medica l (eight) Branch hours as needed for Cough. benzonatate Yes [id number] 100mg Take 1 [facility] (TESSALON 7-29 capsule by ity of PERLES) 100 00:00: mouth [place] mg capsule 00 every 8 Medica l (eight) Branch hours as needed for Cough. benzonatate 2021- No [id number] 100mg Take 1 [facility] (TESSALON 7-29 11-01 capsule by ity of [employer]) 100 00:00: 00:00 mouth [place] mg [...] l solution in the Branch evening. arformotero 0 2021- No 15ug Use 2 mL U nivers L 15 mcg/2 09-29 as ity of mL 00:00: 00:00 directed [place] nebulizer 00 :00 in the Medical solution morning Branch and 2 mL in the evening. budesonide 0 2- No .25mg Inhale 2 U nivers 0.25 [...] solution in the Branch evening. albuterol Yes [id number] 2{puff} Inhale 2 [facility] 90 7-27 Puffs ity of mcg/actuati 00:00: every 6 [place] on inhaler 00 (six) Medical hours as Branch needed for Wheezing or Shortness of Breath. albuterol Yes [id number] 2{puff} Inhale 2 [facility] 90 7-27 Puffs ity of mcg/actuati 00:00: every 6 [place] on inhaler 00 (six) Medical hours as Branch needed for Wheezing or Shortness of Breath. albuterol Yes [id number] 2{puff} Inhale 2 [facility] 90 7-27 Puffs ity of mcg/actuati 00:00: every 6 [place] inhaler 00 (six) Medical hours as Branch needed for Wheezing or Shortness of Breath. albuterol Yes [id number] 2{puff} Inhale 2 [facility] 90 7-27 Puffs ity of mcg/actuati 00:00: every 6 [place] on inhaler 00 (six) Medical hours as Branch needed for Wheezing or Shortness of Breath. albuterol Yes [id number] 2{puff} Inhale 2 [facility] 90 7-27 Puffs ity of mcg/actuati 00:00: every 6 [place] on inhaler 00 (six) Medical hours as Branch needed for Wheezing or Shortness of Breath. albuterol Yes [id number] 2{puff} Inhale 2 [facility] 90 7-27 Puffs ity of mcg/actuati 00:00: every 6 [place] on inhaler 00 (six) Medical hours as Branch needed for Wheezing or Shortness of Breath. albuterol Yes [id number] 2{puff} Inhale 2 [facility] 90 7-27 Puffs ity of mcg/actuati 00:00: every 6 [place] on inhaler 00 (six) Medical hours as Branch needed for Wheezing or Shortness of Breath. albuterol Yes [id number] 2{puff} Inhale 2 [facility] 90 7-27 Puffs ity of mcg/actuati 00:00: every 6 [place] on inhaler 00 (six) Medical hours as Branch needed for Wheezing or Shortness of Breath. albuterol Yes [id number] 2{puff} Inhale 2 [facility] 90 7-27 Puffs ity of mcg/actuati 00:00: every 6 [place] on inhaler 00 (six) Medical hours as Branch needed for Wheezing or Shortness of Breath. albuterol Yes [id number] 2{puff} Inhale 2 [facility] 90 7-27 Puffs ity of mcg/actuati 00:00: every 6 [place] as on inhaler 00 (six) Medical hours as Branch needed for Wheezing or Shortness of Breath. albuterol Yes [id number] 2{puff} Inhale 2 [facility] 90 7-27 Puffs ity of mcg/actuati 00:00: every 6 [place] on inhaler 00 (six) Medical hours as Branch needed for Wheezing or Shortness of Breath. albuterol Yes [id number] 2{puff} Inhale 2 [facility] 90 7-27 Puffs ity of mcg/actuati 00:00: every 6 [place] on inhaler 00 (six) Medical hours as Branch needed for Wheezing or Shortness of Breath. albuterol Yes [id number] 2{puff} Inhale 2 [facility] 90 7-27 Puffs ity of mcg/actuati 00:00: every 6 [place] as on inhaler 00 (six) Medical hours as Branch needed for Wheezing or Shortness of Breath. albuterol Yes [id number] 2{puff} Inhale 2 [facility] 90 7-27 Puffs ity of mcg/actuati 00:00: every 6 [place] as on inhaler 00 (six) Medical hours as Branch needed for Wheezing or Shortness of Breath. albuterol Yes [id number] 2{puff} Inhale 2 [facility] 90 7-27 Puffs ity of mcg/actuati 00:00: every 6 [place] as on inhaler 00 (six) Medical hours as Branch needed for Wheezing or Shortness of Breath. albuterol Yes [id number] 2{puff} Inhale 2 [facility] 90 7-27 Puffs ity of mcg/actuati 00:00: every 6 [place] as on inhaler 00 (six) Medical hours as Branch needed for Wheezing or Shortness of Breath. albuterol Yes [id number] 2{puff} Inhale 2 [facility] 90 7-27 Puffs ity of mcg/actuati 00:00: every 6 [place] as on inhaler 00 (six) Medical hours as Branch needed for Wheezing or Shortness of Breath. albuterol Yes [id number] 2{puff} Inhale 2 [facility] 90 7-27 Puffs ity of mcg/actuati 00:00: every 6 [place] on inhaler 00 (six) Medical hours as Branch needed for Wheezing or Shortness of Breath. albuterol Yes [id number] 2{puff} Inhale 2 [facility] 90 7-27 Puffs ity of mcg/actuati 00:00: every 6 [place] as on inhaler 00 (six) Medical hours as Branch needed for Wheezing or Shortness of Breath. albuterol Yes [id number] 2{puff} Inhale 2 [facility] 90 7-27 Puffs ity of mcg/actuati 00:00: every 6 [place] on inhaler 00 (six) Medical hours as Branch needed for Wheezing or Shortness of Breath. albuterol Yes [id number] 2{puff} Inhale 2 [facility] 90 7-27 Puffs ity of mcg/actuati 00:00: every 6 [place] on inhaler 00 (six) Medical hours as Branch needed for Wheezing or Shortness of Breath. albuterol Yes [id number] 2{puff} Inhale 2 [facility] 90 7-27 Puffs ity of mcg/actuati 00:00: every 6 [place] on inhaler 00 (six) Medical hours as Branch needed for Wheezing or Shortness of Breath. albuterol Yes [id number] 2{puff} Inhale 2 [facility] 90 7-27 Puffs ity of mcg/actuati 00:00: every 6 [place] on inhaler 00 (six) Medical hours as Branch needed for Wheezing or Shortness of Breath. albuterol Yes [id number] 2{puff} Inhale 2 [facility] 90 7-27 Puffs ity of mcg/actuati 00:00: every 6 [place] on inhaler 00 (six) Medical hours as Branch needed for Wheezing or Shortness of Breath. albuterol Yes [id number] 2{puff} Inhale 2 [facility] 90 7-27 Puffs ity of mcg/actuati 00:00: every 6 [place] on inhaler 00 (six) Medical hours as Branch needed for Wheezing or Shortness of Breath. albuterol Yes [id number] 2{puff} Inhale 2 [facility] 90 7-27 Puffs ity of mcg/actuati 00:00: every 6 [place] on inhaler 00 (six) Medical hours as Branch needed for Wheezing or Shortness of Breath. albuterol Yes [id number] 2{puff} Inhale 2 [facility] 90 7-27 Puffs ity of mcg/actuati 00:00: every 6 [place] on inhaler 00 (six) Medical hours as Branch needed for Wheezing or Shortness of Breath. albuterol Yes [id number] 2{puff} Inhale 2 [facility] 90 7-27 Puffs ity of mcg/actuati 00:00: every 6 [place] on inhaler 00 (six) Medical hours as Branch needed for Wheezing or Shortness of Breath. albuterol Yes [id number] 2{puff} Inhale 2 [facility] 90 7-27 Puffs ity of mcg/actuati 00:00: every 6 [place] on inhaler 00 (six) Medical hours as Branch needed for Wheezing or Shortness of Breath. albuterol Yes [id number] 2{puff} Inhale 2 [facility] 90 7-27 Puffs ity of mcg/actuati 00:00: every 6 [place] on inhaler 00 (six) Medical hours as Branch needed for Wheezing or Shortness of Breath. albuterol Yes [id number] 2{puff} Inhale 2 [facility] 90 7-27 Puffs ity of mcg/actuati 00:00: every 6 [place] on inhaler 00 (six) Medical hours as Branch needed for Wheezing or Shortness of Breath. albuterol Yes [id number] 2{puff} Inhale 2 [facility] 90 7-27 Puffs ity of mcg/actuati 00:00: every 6 [place] on inhaler 00 (six) Medical hours as Branch needed for Wheezing or Shortness of Breath. albuterol Yes [id number] 2{puff} Inhale 2 [facility] 90 7-27 Puffs ity of mcg/actuati 00:00: every 6 [place] on inhaler 00 (six) Medical hours as Branch needed for Wheezing or Shortness of Breath. albuterol Yes [id number] 2{puff} Inhale 2 [facility] 90 7-27 Puffs ity of mcg/actuati 00:00: every 6 [place] as on inhaler 00 (six) Medical hours as Branch needed for Wheezing or Shortness of Breath. albuterol Yes [id number] 2{puff} Inhale 2 [facility] 90 7-27 Puffs ity of mcg/actuati 00:00: every 6 [place] on inhaler 00 (six) Medical hours as Branch needed for Wheezing or Shortness of Breath. albuterol Yes [id number] 2{puff} Inhale 2 [facility] 90 7-27 Puffs ity of mcg/actuati 00:00: every 6 [place] on inhaler 00 (six) Medical hours as Branch needed for Wheezing or Shortness of Breath. albuterol Yes [id number] 2{puff} Inhale 2 [facility] 90 7-27 Puffs ity of mcg/actuati 00:00: every 6 [place] on inhaler 00 (six) Medical hours as Branch needed for Wheezing or Shortness of Breath. albuterol Yes [id number] 2{puff} Inhale 2 [facility] 90 7-27 Puffs ity of mcg/actuati 00:00: every 6 [place] on inhaler 00 (six) Medical hours as Branch needed for Wheezing or Shortness of Breath. albuterol Yes [id number] 2{puff} Inhale 2 [facility] 90 7-27 Puffs ity of mcg/actuati 00:00: every 6 [place] on inhaler 00 (six) Medical hours as Branch needed for Wheezing or Shortness of Breath. albuterol Yes [id number] 2{puff} Inhale 2 [facility] 90 7-27 Puffs ity of mcg/actuati 00:00: every 6 [place] on inhaler 00 (six) Medical hours as Branch needed for Wheezing or Shortness of Breath. albuterol Yes [id number] 2{puff} Inhale 2 [facility] 90 7-27 Puffs ity of mcg/actuati 00:00: every 6 [place] on inhaler 00 (six) Medical hours as Branch needed for Wheezing or Shortness of Breath. albuterol Yes [id number] 2{puff} Inhale 2 [facility] 90 7-27 Puffs ity of mcg/actuati 00:00: every 6 [place] on inhaler 00 (six) Medical hours as Branch needed for Wheezing or Shortness of Breath. albuterol Yes [id number] 2{puff} Inhale 2 [facility] 90 7-27 Puffs ity of mcg/actuati 00:00: every 6 [place] on inhaler 00 (six) Medical hours as Branch needed for Wheezing or Shortness of Breath. albuterol Yes [id number] 2{puff} Inhale 2 [facility] 90 7-27 Puffs ity of mcg/actuati 00:00: every 6 [place] on inhaler 00 (six) Medical hours as Branch needed for Wheezing or Shortness of Breath. albuterol Yes [id number] 2{puff} Inhale 2 [facility] 90 7-27 Puffs ity of mcg/actuati 00:00: every 6 [place] on inhaler 00 (six) Medical hours as Branch needed for Wheezing or Shortness of Breath. albuterol Yes [id number] 2{puff} Inhale 2 [facility] 90 7-27 Puffs ity of mcg/actuati 00:00: every 6 [place] on inhaler 00 (six) Medical hours as Branch needed for Wheezing or Shortness of Breath. albuterol Yes [id number] 2{puff} Inhale 2 [facility] 90 7-27 Puffs ity of mcg/actuati 00:00: every 6 [place] on inhaler 00 (six) Medical hours as Branch needed for Wheezing or Shortness of Breath. albuterol 2022- No [id number] 2{puff} Inhale 2 [facility] 90 7-27 01-05 Puffs ity of mcg/actuati 00:00: 00:00 every 6 [place] on inhaler 00 :00 (six) Medical hours as Branch needed for Wheezing or Shortness of Breath. albuterol 2022- No [id number] 2{puff} Inhale 2 [facility] 90 7-27 01-05 Puffs ity of mcg/actuati 00:00: 00:00 every 6 [place] on inhaler 00 :00 (six) Medical hours as Branch needed for Wheezing or Shortness of Breath. albuterol 2022- No [id number] 2{puff} Inhale 2 [facility] 90 7-27 01-05 Puffs ity of mcg/actuati 00:00: 00:00 every 6 [place] on inhaler 00 :00 (six) Medical hours as Branch needed for Wheezing or Shortness of Breath. albuterol 2022- No [id number] 2{puff} Inhale 2 [facility] 90 7-27 01-05 Puffs ity of mcg/actuati 00:00: 00:00 every 6 [place] on inhaler 00 :00 (six) Medical hours as Branch needed for Wheezing or Shortness of Breath. levothyroxi Yes [id number] 150ug Take 1 [facility] ne 150 mcg 7-05 tablet by ity of tablet 00:00: mouth [place] 00 every Medical morning. Branch Diclofenac Yes [id number] Apply to [facility] Sodium 7-05 area(s) 4 ity of (VOLTAREN) 00:00: (four) [place] 1 % gel 00 times Medical daily. Branch Apply 4 g qid baclofen 10 0 Yes [id number] 10mg Take 1 [facility] mg tablet 7-05 tablet by ity o f 00:00: mouth 3 (three) Medical times Branch daily as needed for Pain (scale 7-10). docusate 2021-0 Yes [id number] 100mg Take 1 Un renetta 100 mg 7-05 capsule by ity of capsule 00:00: mouth 2 00 (two) Medical times Branch daily. glipiZIDE 2021-0 Yes [id number] 2.5mg Take 1 U nivers XL 2.5 mg 7-05 tablet by ity o f 24 hr 00:00: mouth 2 [place] tablet 00 (two) Medical times Branch daily. Lidocaine 5 2021-0 Yes [id number] Apply to [facility] % cream 7-05 area(s) 2 ity of 00:00: (two) [place] 00 times Medical daily as Branch needed for Pain (scale 4-6). Apply 5g to affected areas BID PRN levothyroxi 2021-0 Yes [id number] 150ug Take 1 [facility] ne 150 mcg 7-05 tablet by ity of tablet 00:00: mouth [place] 00 every Medical morning. Branch Diclofenac 2021-0 Yes [id number] Apply to [facility] Sodium 7-05 area(s) 4 ity of (VOLTAREN) 00:00: (four) [place] 1 % gel 00 times Medical daily. Branch Apply 4 g qid baclofen 10 Yes [id number] 10mg Take 1 [facility] mg tablet 7-05 tablet by ity o f 00:00: mouth 3 00 (three) Medical times Branch daily as needed for Pain (scale 7-10). docusate 2021-0 Yes [id number] 100mg Take 1 Un renetta 100 mg 7-05 capsule by ity of capsule 00:00: mouth 2 [place] 00 (two) Medical times Branch daily. glipiZIDE 2021-0 Yes [id number] 2.5mg Take 1 U nivers XL 2.5 mg 7-05 tablet by ity o f 24 hr 00:00: mouth 2 [place] tablet 00 (two) Medical times Branch daily. Lidocaine 5 2021-0 Yes [id number] Apply to [facility] % cream 7-05 area(s) 2 ity of 00:00: (two) [place] 00 times Medical daily as Branch needed for Pain (scale 4-6). Apply 5g to affected areas BID PRN levothyroxi 2021-0 Yes [id number] 150ug Take 1 [facility] ne 150 mcg 7-05 tablet by ity of tablet 00:00: mouth [place] 00 every Medical morning. Branch Diclofenac 2021-0 Yes [id number] Apply to [facility] Sodium 7-05 area(s) 4 ity of (VOLTAREN) 00:00: (four) [place] 1 % gel 00 times Medical daily. Branch Apply 4 g qid baclofen 10 0 Yes [id number] 10mg Take 1 [facility] mg tablet 7-05 tablet by ity o f 00:00: mouth 3 [place] 00 (three) Medical times Branch daily as needed for Pain (scale 7-10). docusate 2021-0 Yes [id number] 100mg Take 1 Un renetta 100 mg 7-05 capsule by ity of capsule 00:00: mouth 2 [place] 00 (two) Medical times Branch daily. glipiZIDE Yes [id number] 2.5mg Take 1 U nivers XL 2.5 mg 7-05 tablet by ity o f 24 hr 00:00: mouth 2 [place] tablet 00 (two) Medical times Branch daily. Lidocaine 5 0 Yes [id number] Apply to [facility] % cream 7-05 area(s) 2 ity of 00:00: (two) [place] 00 times Medical daily as Branch needed for Pain (scale 4-6). Apply 5g to affected areas BID PRN levothyroxi 2021-0 Yes [id number] 150ug Take 1 [facility] ne 150 mcg 7-05 tablet by ity of tablet 00:00: mouth [place] 00 every Medical morning. Branch Diclofenac 2021-0 Yes [id number] Apply to [facility] Sodium 7-05 area(s) 4 ity of (VOLTAREN) 00:00: (four) [place] 1 % gel 00 times Medical daily. Branch Apply 4 g qid baclofen 10 2021-0 Yes [id number] 10mg Take 1 [facility] mg tablet 7-05 tablet by ity o f 00:00: mouth 3 [place] 00 (three) Medical times Branch daily as needed for Pain (scale 7-10). docusate 2021-0 Yes [id number] 100mg Take 1 Un renetta 100 mg 7-05 capsule by ity of capsule 00:00: mouth 2 [place] 00 (two) Medical times Branch daily. glipiZIDE 2021- Yes [id number] 2.5mg Take 1 U nivers XL 2.5 mg 7-05 tablet by ity o f 24 hr 00:00: mouth 2 [place] tablet 00 (two) Medical times Branch daily. Lidocaine 5 2021-0 Yes [id number] Apply to [facility] % cream 7-05 area(s) 2 ity of 00:00: (two) [place] 00 times Medical daily as Branch needed for Pain (scale 4-6). Apply 5g to affected areas BID PRN levothyroxi 2021-0 Yes [id number] 150ug Take 1 [facility] ne 150 mcg 7-05 tablet by ity of tablet 00:00: mouth [place] 00 every Medical morning. Branch Diclofenac Yes [id number] Apply to [facility] Sodium 7-05 area(s) 4 ity of (VOLTAREN) 00:00: (four) [place] 1 % gel 00 times Medical daily. Branch Apply 4 g qid baclofen 10 Yes [id number] 10mg Take 1 [facility] mg tablet 7-05 tablet by ity o f 00:00: mouth 3 [place] 00 (three) Medical times Branch daily as needed for Pain (scale 7-10). docusate 0 Yes [id number] 100mg Take 1 Un renetta 100 mg 7-05 capsule by ity of capsule 00:00: mouth 2 [place] 00 (two) Medical times Branch daily. glipiZIDE Yes [id number] 2.5mg Take 1 U nivers XL 2.5 mg 7-05 tablet by ity o f 24 hr 00:00: mouth 2 [place] tablet 00 (two) Medical times Branch daily. Lidocaine 5 2021-0 Yes [id number] Apply to [facility] % cream 7-05 area(s) 2 ity of 00:00: (two) [place] 00 times Medical daily as Branch needed for Pain (scale 4-6). Apply 5g to affected areas BID PRN levothyroxi 2021-0 Yes [id number] 150ug Take 1 [facility] ne 150 mcg 7-05 tablet by ity of tablet 00:00: mouth [place] 00 every Medical morning. Branch Diclofenac 2021-0 Yes [id number] Apply to [facility] Sodium 7-05 area(s) 4 ity of (VOLTAREN) 00:00: (four) [place] 1 % gel 00 times Medical daily. Branch Apply 4 g qid baclofen 10 2021-0 Yes [id number] 10mg Take 1 [facility] mg tablet 7-05 tablet by ity o f 00:00: mouth 3 [place] 00 (three) Medical times Branch daily as needed for Pain (scale 7-10). docusate 2021-0 Yes [id number] 100mg Take 1 Un renetta 100 mg 7-05 capsule by [facility] capsule 00:00: mouth 2 [place] 00 (two) Medical times Branch daily. glipiZIDE 2021-0 Yes [id number] 2.5mg Take 1 [facility] XL 2.5 mg 7-05 tablet by [facility] f 24 hr 00:00: mouth 2 [place] tablet 00 (two) Medical times Branch daily. Lidocaine 5 2021-0 Yes [id number] Apply to [facility] % cream 7-05 area(s) 2 [facility] 00:00: (two) [place] 00 times Medical daily as Branch needed for Pain (scale 4-6). Apply 5g to affected areas BID PRN levothyroxi 2021-0 Yes [id number] 150ug Take 1 [facility] ne 150 mcg 7-05 tablet by [facility] tablet 00:00: mouth [place] 00 every Medical morning. Branch Diclofenac 2021-0 Yes [id number] Apply to [facility] Sodium 7-05 area(s) 4 [facility] (VOLTAREN) 00:00: (four) [place] 1 % gel 00 times Medical daily. Branch Apply 4 g qid baclofen 10 2021-0 Yes [id number] 10mg Take 1 [facility] mg tablet 7-05 tablet by [facility] o f 00:00: mouth 3 [place] 00 (three) Medical times Branch daily as needed for Pain (scale 7-10). docusate 2021-0 Yes [id number] 100mg Take 1 Un renetta 100 mg 7-05 capsule by [facility] capsule 00:00: mouth 2 [place] 00 (two) Medical times Branch daily. glipiZIDE 2021-0 Yes [id number] 2.5mg Take 1 [facility] XL 2.5 mg 7-05 tablet by [facility] f 24 hr 00:00: mouth 2 [place] tablet 00 (two) Medical times Branch daily. Lidocaine 5 2021-0 Yes [id number] Apply to [facility] % cream 7-05 area(s) 2 [facility] 00:00: (two) [place] 00 times Medical daily as Branch needed for Pain (scale 4-6). Apply 5g to affected areas BID PRN levothyroxi Yes [id number] 150ug Take 1 [facility] ne 150 mcg 7-05 tablet by [facility] tablet 00:00: mouth [place] 00 every Medical morning. Branch Diclofenac Yes [id number] Apply to [facility] Sodium 7-05 area(s) 4 [facility] of (VOLTAREN) 00:00: (four) [place] 1 % gel 00 times Medical daily. Branch Apply 4 g qid baclofen 10 Yes [id number] 10mg Take 1 [facility] mg tablet 7-05 tablet by [facility] o f 00:00: mouth 3 [place] 00 (three) Medical times Branch daily as needed for Pain (scale 7-10). docusate Yes [id number] 100mg Take 1 Un renetta 100 mg 7-05 capsule by [facility] capsule 00:00: mouth 2 [place] 00 (two) Medical times Branch daily. glipiZIDE Yes [id number] 2.5mg Take 1 [facility] XL 2.5 mg 7-05 tablet by [facility] f 24 hr 00:00: mouth 2 [place] tablet 00 (two) Medical times Branch daily. Lidocaine 5 Yes [id number] Apply to [facility] % cream 7-05 area(s) 2 [facility] 00:00: (two) [place] 00 times Medical daily as Branch needed for Pain (scale 4-6). Apply 5g to affected areas BID PRN levothyroxi Yes [id number] 150ug Take 1 [facility] ne 150 mcg 7-05 tablet by [facility] tablet 00:00: mouth [place] 00 every Medical morning. Branch Diclofenac 2021-0 Yes [id number] Apply to [facility] Sodium 7-05 area(s) 4 [facility] of (VOLTAREN) 00:00: (four) [place] 1 % gel 00 times Medical daily. Branch Apply 4 g qid baclofen 10 Yes [id number] 10mg Take 1 [facility] mg tablet 7-05 tablet by [facility] o f 00:00: mouth 3 [place] 00 (three) Medical times Branch daily as needed for Pain (scale 7-10). docusate 2022-0 Yes [id number] 100mg Take 1 Un renetta 100 mg 7-05 capsule by [facility] capsule 00:00: mouth 2 [place] 00 (two) Medical times Branch daily. glipiZIDE Yes [id number] 2.5mg Take 1 [facility] XL 2.5 mg 7-05 tablet by [facility] f 24 hr 00:00: mouth 2 [place] tablet 00 (two) Medical times Branch daily. Lidocaine 5 Yes [id number] Apply to [facility] % cream 7-05 area(s) 2 [facility] 00:00: (two) [place] 00 times Medical daily as Branch needed for Pain (scale 4-6). Apply 5g to affected areas BID PRN levothyroxi Yes [id number] 150ug Take 1 [facility] ne 150 mcg 7-05 tablet by [facility] tablet 00:00: mouth [place] 00 every Medical morning. Branch Diclofenac Yes [id number] Apply to [facility] Sodium 7-05 area(s) 4 [facility] of (VOLTAREN) 00:00: (four) [place] 1 % gel 00 times Medical daily. Branch Apply 4 g qid baclofen 10 Yes [id number] 10mg Take 1 [facility] mg tablet 7-05 tablet by [facility] o f 00:00: mouth 3 [place] 00 (three) Medical times Branch daily as needed for Pain (scale 7-10). docusate Yes [id number] 100mg Take 1 Un renetta 100 mg 7-05 capsule by [facility] capsule 00:00: mouth 2 [place] 00 (two) Medical times Branch daily. glipiZIDE Yes [id number] 2.5mg Take 1 [facility] XL 2.5 mg 7-05 tablet by [facility] o f 24 hr 00:00: mouth 2 [place] tablet 00 (two) Medical times Branch daily. Lidocaine 5 2021- Yes [id number] Apply to [facility] % cream 7-05 area(s) 2 [facility] 00:00: (two) [place] 00 times Medical daily as Branch needed for Pain (scale 4-6). Apply 5g to affected areas BID PRN levothyroxi 2021-0 Yes [id number] 150ug Take 1 [facility] ne 150 mcg 7-05 tablet by [facility] tablet 00:00: mouth [place] 00 every Medical morning. Branch Diclofenac Yes [id number] Apply to [facility] Sodium 7-05 area(s) 4 [facility] of (VOLTAREN) 00:00: (four) [place] 1 % gel 00 times Medical daily. Branch Apply 4 g qid baclofen 10 0 Yes [id number] 10mg Take 1 [facility] mg tablet 7-05 tablet by [facility] o f 00:00: mouth 3 00 (three) Medical times Branch daily as needed for Pain (scale 7-10). docusate 2021-0 Yes [id number] 100mg Take 1 Un renetta 100 mg 7-05 capsule by [facility] capsule 00:00: mouth 2 00 (two) Medical times Branch daily. glipiZIDE 2021-0 Yes [id number] 2.5mg Take 1 [facility] XL 2.5 mg 7-05 tablet by [facility] o f 24 hr 00:00: mouth 2 [place] tablet 00 (two) Medical times Branch daily. Lidocaine 5 2021-0 Yes [id number] Apply to [facility] % cream 7-05 area(s) 2 [facility] 00:00: (two) [place] 00 times Medical daily as Branch needed for Pain (scale 4-6). Apply 5g to affected areas BID PRN levothyroxi 0 Yes [id number] 150ug Take 1 [facility] ne 150 mcg 7-05 tablet by [facility] tablet 00:00: mouth [place] 00 every Medical morning. Branch Diclofenac Yes [id number] Apply to [facility] Sodium 7-05 area(s) 4 [facility] (VOLTAREN) 00:00: (four) [place] 1 % gel 00 times Medical daily. Branch Apply 4 g qid baclofen 10 Yes [id number] 10mg Take 1 [facility] mg tablet 7-05 tablet by [facility] o f 00:00: mouth 3 [place] 00 (three) Medical times Branch daily as needed for Pain (scale 7-10). docusate 2021-0 Yes [id number] 100mg Take 1 Un renetta 100 mg 7-05 capsule by [facility] capsule 00:00: mouth 2 [place] 00 (two) Medical times Branch daily. glipiZIDE 2021-0 Yes [id number] 2.5mg Take 1 [facility] XL 2.5 mg 7-05 tablet by [facility] o f 24 hr 00:00: mouth 2 [place] tablet 00 (two) Medical times Branch daily. Lidocaine 5 2021-0 Yes [id number] Apply to [facility] % cream 7-05 area(s) 2 [facility] 00:00: (two) [place] 00 times Medical daily as Branch needed for Pain (scale 4-6). Apply 5g to affected areas BID PRN levothyroxi 2021-0 Yes [id number] 150ug Take 1 [facility] ne 150 mcg 7-05 tablet by [facility] tablet 00:00: mouth [place] 00 every Medical morning. Branch Diclofenac 2021-0 Yes [id number] Apply to [facility] Sodium 7-05 area(s) 4 [facility] of (VOLTAREN) 00:00: (four) [place] 1 % gel 00 times Medical daily. Branch Apply 4 g qid baclofen 10 0 Yes [id number] 10mg Take 1 [facility] mg tablet 7-05 tablet by [facility] o f 00:00: mouth 3 [place] 00 (three) Medical times Branch daily as needed for Pain (scale 7-10). docusate Yes [id number] 100mg Take 1 Un renetta 100 mg 7-05 capsule by [facility] capsule 00:00: mouth 2 [place] 00 (two) Medical times Branch daily. glipiZIDE Yes [id number] 2.5mg Take 1 [facility] XL 2.5 mg 7-05 tablet by [facility] o f 24 hr 00:00: mouth 2 [place] tablet 00 (two) Medical times Branch daily. Lidocaine 5 0 Yes [id number] Apply to [facility] % cream 7-05 area(s) 2 [facility] 00:00: (two) [place] 00 times Medical daily as Branch needed for Pain (scale 4-6). Apply 5g to affected areas BID PRN levothyroxi 2021-0 Yes [id number] 150ug Take 1 [facility] ne 150 mcg 7-05 tablet by [facility] tablet 00:00: mouth [place] 00 every Medical morning. Branch Diclofenac 2021-0 Yes [id number] Apply to [facility] Sodium 7-05 area(s) 4 [facility] (VOLTAREN) 00:00: (four) [place] 1 % gel 00 times Medical daily. Branch Apply 4 g qid baclofen 10 2021-0 Yes [id number] 10mg Take 1 [facility] mg tablet 7-05 tablet by [facility] o f 00:00: mouth 3 [place] 00 (three) Medical times Branch daily as needed for Pain (scale 7-10). docusate 2021-0 Yes [id number] 100mg Take 1 Un renetta 100 mg 7-05 capsule by [facility] capsule 00:00: mouth 2 [place] 00 (two) Medical times Branch daily. glipiZIDE 0 Yes [id number] 2.5mg Take 1 [facility] XL 2.5 mg 7-05 tablet by [facility] o f 24 hr 00:00: mouth 2 [place] tablet 00 (two) Medical times Branch daily. Lidocaine 5 2021- Yes [id number] Apply to [facility] % cream 7-05 area(s) 2 [facility] 00:00: (two) [place] 00 times Medical daily as Branch needed for Pain (scale 4-6). Apply 5g to affected areas BID PRN levothyroxi Yes [id number] 150ug Take 1 [facility] ne 150 mcg 7-05 tablet by [facility] tablet 00:00: mouth [place] 00 every Medical morning. Branch Diclofenac Yes [id number] Apply to [facility] Sodium 7-05 area(s) 4 [facility] of (VOLTAREN) 00:00: (four) [place] 1 % gel 00 times Medical daily. Branch Apply 4 g qid baclofen 10 Yes [id number] 10mg Take 1 [facility] mg tablet 7-05 tablet by [facility] o f 00:00: mouth 3 [place] 00 (three) Medical times Branch daily as needed for Pain (scale 7-10). docusate 0 Yes [id number] 100mg Take 1 Un renetta 100 mg 7-05 capsule by [facility] capsule 00:00: mouth 2 [place] 00 (two) Medical times Branch daily. glipiZIDE 2021- Yes [id number] 2.5mg Take 1 [facility] n[facility] XL 2.5 mg 7-05 tablet by [facility] o f 24 hr 00:00: mouth 2 [place] tablet 00 (two) Medical times Branch daily. Lidocaine 5 2021- Yes [id number] Apply to [facility] % cream 7-05 area(s) 2 [facility] 00:00: (two) [place] 00 times Medical daily as Branch needed for Pain (scale 4-6). Apply 5g to affected areas BID PRN levothyroxi 2021-0 Yes [id number] 150ug Take 1 [facility] ne 150 mcg 7-05 tablet by [facility] tablet 00:00: mouth [place] 00 every Medical morning. Branch Diclofenac 2021- Yes [id number] Apply to [facility] Sodium 7-05 area(s) 4 [facility] of (VOLTAREN) 00:00: (four) [place] 1 % gel 00 times Medical daily. Branch Apply 4 g qid baclofen 10 0 Yes [id number] 10mg Take 1 [facility] mg tablet 7-05 tablet by [facility] o f 00:00: mouth 3 [place] 00 (three) Medical times Branch daily as needed for Pain (scale 7-10). docusate 2021-0 Yes [id number] 100mg Take 1 Un renetta 100 mg 7-05 capsule by [facility] capsule 00:00: mouth 2 [place] 00 (two) Medical times Branch daily. glipiZIDE 2021-0 Yes [id number] 2.5mg Take 1 [facility] n[facility] XL 2.5 mg 7-05 tablet by [facility] o f 24 hr 00:00: mouth 2 [place] tablet 00 (two) Medical times Branch daily. Lidocaine 5 0 Yes [id number] Apply to [facility] % cream 7-05 area(s) 2 [facility] 00:00: (two) [place] 00 times Medical daily as Branch needed for Pain (scale 4-6). Apply 5g to affected areas BID PRN levothyroxi 0 Yes [id number] 150ug Take 1 [facility] ne 150 mcg 7-05 tablet by [facility] of tablet 00:00: mouth [place] 00 every Medical morning. Branch Diclofenac Yes [id number] Apply to [facility] Sodium 7-05 area(s) 4 [facility] of (VOLTAREN) 00:00: (four) [place] 1 % gel 00 times Medical daily. Branch Apply 4 g qid baclofen 10 Yes [id number] 10mg Take 1 [facility] mg tablet 7-05 tablet by [facility] o f 00:00: mouth 3 [place] 00 (three) Medical times Branch daily as needed for Pain (scale 7-10). docusate 2021-0 Yes [id number] 100mg Take 1 Un renetta 100 mg 7-05 capsule by [facility] capsule 00:00: mouth 2 [place] 00 (two) Medical times Branch daily. glipiZIDE 2021-0 Yes [id number] 2.5mg Take 1 [facility] n[facility] XL 2.5 mg 7-05 tablet by [facility] o f 24 hr 00:00: mouth 2 [place] tablet 00 (two) Medical times Branch daily. Lidocaine 5 2021-0 Yes [id number] Apply to [facility] % cream 7-05 area(s) 2 [facility] 00:00: (two) [place] 00 times Medical daily as Branch needed for Pain (scale 4-6). Apply 5g to affected areas BID PRN levothyroxi 2021-0 Yes [id number] 150ug Take 1 [facility] ne 150 mcg 7-05 tablet by [facility] tablet 00:00: mouth [place] 00 every Medical morning. Branch Diclofenac 2021-0 Yes [id number] Apply to [facility] Sodium 7-05 area(s) 4 [facility] of (VOLTAREN) 00:00: (four) [place] 1 % gel 00 times Medical daily. Branch Apply 4 g qid baclofen 10 2021-0 Yes [id number] 10mg Take 1 [facility] mg tablet 7-05 tablet by [facility] o f 00:00: mouth 3 [place] 00 (three) Medical times Branch daily as needed for Pain (scale 7-10). docusate 0 Yes [id number] 100mg Take 1 Un renetta 100 mg 7-05 capsule by [facility] capsule 00:00: mouth 2 [place] 00 (two) Medical times Branch daily. glipiZIDE 2021-0 Yes [id number] 2.5mg Take 1 [facility] nivers XL 2.5 mg 7-05 tablet by [facility] o f 24 hr 00:00: mouth 2 [place] tablet 00 (two) Medical times Branch daily. Lidocaine 5 2021-0 Yes [id number] Apply to [facility] % cream 7-05 area(s) 2 [facility] 00:00: (two) [place] 00 times Medical daily as Branch needed for Pain (scale 4-6). Apply 5g to affected areas BID PRN levothyroxi 2021-0 Yes [id number] 150ug Take 1 [facility] ne 150 mcg 7-05 tablet by [facility] tablet 00:00: mouth [place] 00 every Medical morning. Branch Diclofenac 2021-0 Yes [id number] Apply to [facility] Sodium 7-05 area(s) 4 [facility] of (VOLTAREN) 00:00: (four) [place] 1 % gel 00 times Medical daily. Branch Apply 4 g qid baclofen 10 2021-0 Yes [id number] 10mg Take 1 [facility] mg tablet 7-05 tablet by [facility] o f 00:00: mouth 3 (three) Medical times Branch daily as needed for Pain (scale 7-10). docusate Yes [id number] 100mg Take 1 Un renetta 100 mg 7-05 capsule by [facility] capsule 00:00: mouth 2 [place] 00 (two) Medical times Branch daily. glipiZIDE Yes [id number] 2.5mg Take 1 [facility] nivers XL 2.5 mg 7-05 tablet by [facility] o f 24 hr 00:00: mouth 2 [place] tablet 00 (two) Medical times Branch daily. Lidocaine 5 2021-0 Yes [id number] Apply to [facility] % cream 7-05 area(s) 2 [facility] 00:00: (two) [place] 00 times Medical daily as Branch needed for Pain (scale 4-6). Apply 5g to affected areas BID PRN levothyroxi Yes [id number] 150ug Take 1 [facility] ne 150 mcg 7-05 tablet by [facility] tablet 00:00: mouth 00 every Medical morning. Branch Diclofenac Yes [id number] Apply to [facility] Sodium 7-05 area(s) 4 [facility] of (VOLTAREN) 00:00: (four) [place] 1 % gel 00 times Medical daily. Branch Apply 4 g qid baclofen 10 Yes [id number] 10mg Take 1 [facility] mg tablet 7-05 tablet by [facility] o f 00:00: mouth 3 00 (three) Medical times Branch daily as needed for Pain (scale 7-10). docusate Yes [id number] 100mg Take 1 Un renetta 100 mg 7-05 capsule by [facility] capsule 00:00: mouth 2 (two) Medical times Branch daily. glipiZIDE 2021- Yes [id number] 2.5mg Take 1 [facility] n[facility] XL 2.5 mg 7-05 tablet by [facility] o f 24 hr 00:00: mouth 2 [place] tablet 00 (two) Medical times Branch daily. Lidocaine 5 2021- Yes [id number] Apply to [facility] % cream 7-05 area(s) 2 [facility] 00:00: (two) [place] 00 times Medical daily as Branch needed for Pain (scale 4-6). Apply 5g to affected areas BID PRN levothyroxi Yes [id number] 150ug Take 1 [facility] ne 150 mcg 7-05 tablet by [facility] of tablet 00:00: mouth [place] 00 every Medical morning. Branch Diclofenac Yes [id number] Apply to [facility] Sodium 7-05 area(s) 4 [facility] of (VOLTAREN) 00:00: (four) [place] 1 % gel 00 times Medical daily. Branch Apply 4 g qid baclofen 10 Yes [id number] 10mg Take 1 [facility] mg tablet 7-05 tablet by [facility] o f 00:00: mouth 3 [place] 00 (three) Medical times Branch daily as needed for Pain (scale 7-10). glipiZIDE Yes [id number] 2.5mg Take 1 [facility] nivers XL 2.5 mg 7-05 tablet by [facility] o f 24 hr 00:00: mouth 2 [place] tablet 00 (two) Medical times Branch daily. Lidocaine 5 0 Yes [id number] Apply to [facility] % cream 7-05 area(s) 2 [facility] 00:00: (two) [place] 00 times Medical daily as Branch needed for Pain (scale 4-6). Apply 5g to affected areas BID PRN levothyroxi Yes [id number] 150ug Take 1 [facility] ne 150 mcg 7-05 tablet by [facility] tablet 00:00: mouth [place] 00 every Medical morning. Branch Diclofenac Yes [id number] Apply to [facility] Sodium 7-05 area(s) 4 [facility] of (VOLTAREN) 00:00: (four) [place] 1 % gel 00 times Medical daily. Branch Apply 4 g qid baclofen 10 Yes [id number] 10mg Take 1 [facility] mg tablet 7-05 tablet by [facility] o f 00:00: mouth 3 [place] 00 (three) Medical times Branch daily as needed for Pain (scale 7-10). glipiZIDE Yes [id number] 2.5mg Take 1 [facility] n[facility] XL 2.5 mg 7-05 tablet by [facility] o f 24 hr 00:00: mouth 2 [place] tablet 00 (two) Medical times Branch daily. Lidocaine 5 0 Yes [id number] Apply to [facility] % cream 7-05 area(s) 2 [facility] 00:00: (two) [place] 00 times Medical daily as Branch needed for Pain (scale 4-6). Apply 5g to affected areas BID PRN levothyroxi 2021-0 Yes [id number] 150ug Take 1 [facility] ne 150 mcg 7-05 tablet by [facility] of tablet 00:00: mouth [place] 00 every Medical morning. Branch Diclofenac 2021- Yes [id number] Apply to [facility] Sodium 7-05 area(s) 4 [facility] of (VOLTAREN) 00:00: (four) [place] 1 % gel 00 times Medical daily. Branch Apply 4 g qid baclofen 10 Yes [id number] 10mg Take 1 [facility] mg tablet 7-05 tablet by [facility] o f 00:00: mouth 3 [place] 00 (three) Medical times Branch daily as needed for Pain (scale 7-10). glipiZIDE Yes [id number] 2.5mg Take 1 [facility] n[facility] XL 2.5 mg 7-05 tablet by [facility] o f 24 hr 00:00: mouth 2 [place] tablet 00 (two) Medical times Branch daily. Lidocaine 5 Yes [id number] Apply to [facility] % cream 7-05 area(s) 2 [facility] 00:00: (two) [place] 00 times Medical daily as Branch needed for Pain (scale 4-6). Apply 5g to affected areas BID PRN levothyroxi 2021-0 Yes [id number] 150ug Take 1 [facility] ne 150 mcg 7-05 tablet by [facility] of tablet 00:00: mouth [place] 00 every Medical morning. Branch Diclofenac Yes [id number] Apply to [facility] Sodium 7-05 area(s) 4 [facility] of (VOLTAREN) 00:00: (four) [place] 1 % gel 00 times Medical daily. Branch Apply 4 g qid baclofen 10 Yes [id number] 10mg Take 1 [facility] mg tablet 7-05 tablet by [facility] o f 00:00: mouth 3 [place] 00 (three) Medical times Branch daily as needed for Pain (scale 7-10). glipiZIDE Yes [id number] 2.5mg Take 1 [facility] n[facility] XL 2.5 mg 7-05 tablet by [facility] o f 24 hr 00:00: mouth 2 [place] tablet 00 (two) Medical times Branch daily. Lidocaine 5 Yes [id number] Apply to [facility] % cream 7-05 area(s) 2 [facility] 00:00: (two) [place] 00 times Medical daily as Branch needed for Pain (scale 4-6). Apply 5g to affected areas BID PRN levothyroxi 2021-0 Yes [id number] 150ug Take 1 [facility] ne 150 mcg 7-05 tablet by [facility] of tablet 00:00: mouth [place] 00 every Medical morning. Branch Diclofenac 2021- Yes [id number] Apply to [facility] Sodium 7-05 area(s) 4 [facility] of (VOLTAREN) 00:00: (four) [place] 1 % gel 00 times Medical daily. Branch Apply 4 g qid baclofen 10 Yes [id number] 10mg Take 1 [facility] mg tablet 7-05 tablet by [facility] o f 00:00: mouth 3 [place] 00 (three) Medical times Branch daily as needed for Pain (scale 7-10). glipiZIDE Yes [id number] 2.5mg Take 1 [facility] XL 2.5 mg 7-05 tablet by [facility] o f 24 hr 00:00: mouth 2 [place] tablet 00 (two) Medical times Branch daily. Lidocaine 5 Yes [id number] Apply to [facility] % cream 7-05 area(s) 2 [facility] 00:00: (two) [place] 00 times Medical daily as Branch needed for Pain (scale 4-6). Apply 5g to affected areas BID PRN levothyroxi 2021-0 Yes [id number] 150ug Take 1 [facility] ne 150 mcg 7-05 tablet by [facility] of tablet 00:00: mouth [place] 00 every Medical morning. Branch Diclofenac Yes [id number] Apply to [facility] Sodium 7-05 area(s) 4 [facility] of (VOLTAREN) 00:00: (four) [place] 1 % gel 00 times Medical daily. Branch Apply 4 g qid baclofen 10 Yes [id number] 10mg Take 1 [facility] mg tablet 7-05 tablet by [facility] o f 00:00: mouth 3 [place] 00 (three) Medical times Branch daily as needed for Pain (scale 7-10). glipiZIDE Yes [id number] 2.5mg Take 1 [facility] XL 2.5 mg 7-05 tablet by [facility] o f 24 hr 00:00: mouth 2 [place] tablet 00 (two) Medical times Branch daily. Lidocaine 5 Yes [id number] Apply to [facility] % cream 7-05 area(s) 2 [facility] 00:00: (two) [place] 00 times Medical daily as Branch needed for Pain (scale 4-6). Apply 5g to affected areas BID PRN levothyroxi 2-0 Yes [id number] 150ug Take 1 [facility] ne 150 mcg 7-05 tablet by [facility] of tablet 00:00: mouth [place] 00 every Medical morning. Branch Diclofenac 2021-0 Yes [id number] Apply to [facility] Sodium 7-05 area(s) 4 [facility] of (VOLTAREN) 00:00: (four) [place] 1 % gel 00 times Medical daily. Branch Apply 4 g qid glipiZIDE 2021-0 Yes [id number] 2.5mg Take 1 [facility] XL 2.5 mg 7-05 tablet by [facility] o f 24 hr 00:00: mouth 2 [place] tablet 00 (two) Medical times Branch daily. Lidocaine 5 2021-0 Yes [id number] Apply to [facility] % cream 7-05 area(s) 2 [facility] of 00:00: (two) [place] 00 times Medical daily as Branch needed for Pain (scale 4-6). Apply 5g to affected areas BID PRN levothyroxi 2021-0 Yes [id number] 150ug Take 1 [facility] ne 150 mcg 7-05 tablet by [facility] of tablet 00:00: mouth [place] 00 every Medical morning. Branch Diclofenac Yes [id number] Apply to [facility] Sodium 7-05 area(s) 4 [facility] of (VOLTAREN) 00:00: (four) [place] 1 % gel 00 times Medical daily. Branch Apply 4 g qid glipiZIDE 2021-0 Yes [id number] 2.5mg Take 1 [facility] XL 2.5 mg 7-05 tablet by [facility] o f 24 hr 00:00: mouth 2 [place] tablet 00 (two) Medical times Branch daily. Lidocaine 5 2021-0 Yes [id number] Apply to [facility] % cream 7-05 area(s) 2 [facility] of 00:00: (two) [place] 00 times Medical daily as Branch needed for Pain (scale 4-6). Apply 5g to affected areas BID PRN levothyroxi 2-0 Yes [id number] 150ug Take 1 [facility] ne 150 mcg 7-05 tablet by [facility] of tablet 00:00: mouth [place] 00 every Medical morning. Branch Diclofenac 2021-0 Yes [id number] Apply to [facility] Sodium 7-05 area(s) 4 [facility] of (VOLTAREN) 00:00: (four) [place] 1 % gel 00 times Medical daily. Branch Apply 4 g qid glipiZIDE 2021-0 Yes [id number] 2.5mg Take 1 [facility] XL 2.5 mg 7-05 tablet by [facility] o f 24 hr 00:00: mouth 2 [place] tablet 00 (two) Medical times Branch daily. Lidocaine 5 2021-0 Yes [id number] Apply to [facility] % cream 7-05 area(s) 2 [facility] of 00:00: (two) [place] 00 times Medical daily as Branch needed for Pain (scale 4-6). Apply 5g to affected areas BID PRN levothyroxi 2021-0 Yes [id number] 150ug Take 1 [facility] ne 150 mcg 7-05 tablet by [facility] of tablet 00:00: mouth [place] 00 every Medical morning. Branch Diclofenac 2021-0 Yes [id number] Apply to [facility] Sodium 7-05 area(s) 4 [facility]y of (VOLTAREN) 00:00: (four) [place] 1 % gel 00 times Medical daily. Branch Apply 4 g qid glipiZIDE 2021-0 Yes [id number] 2.5mg Take 1 [facility] XL 2.5 mg 7-05 tablet by [facility] o f 24 hr 00:00: mouth 2 [place] tablet 00 (two) Medical times Branch daily. Lidocaine 5 2021-0 Yes [id number] Apply to [facility] % cream 7-05 area(s) 2 [facility] of 00:00: (two) [place] 00 times Medical daily as Branch needed for Pain (scale 4-6). Apply 5g to affected areas BID PRN levothyroxi 2-0 Yes [id number] 150ug Take 1 [facility] ne 150 mcg 7-05 tablet by [facility] of tablet 00:00: mouth [place] 00 every Medical morning. Branch Diclofenac 2-0 Yes [id number] Apply to [facility] Sodium 7-05 area(s) 4 [facility]y of (VOLTAREN) 00:00: (four) [place] 1 % gel 00 times Medical daily. Branch Apply 4 g qid glipiZIDE 2-0 Yes [id number] 2.5mg Take 1 [facility] XL 2.5 mg 7-05 tablet by [facility] o f 24 hr 00:00: mouth 2 [place] tablet 00 (two) Medical times Branch daily. Lidocaine 5 2021-0 Yes [id number] Apply to [facility] % cream 7-05 area(s) 2 [facility] of 00:00: (two) [place] 00 times Medical daily as Branch needed for Pain (scale 4-6). Apply 5g to affected areas BID PRN levothyroxi 2022-0 Yes [id number] 150ug Take 1 [facility] ne 150 mcg 7-05 tablet by [facility] of tablet 00:00: mouth [place] 00 every Medical morning. Branch Diclofenac 2021-0 Yes [id number] Apply to [facility] Sodium 7-05 area(s) 4 ity of (VOLTAREN) 00:00: (four) [place] 1 % gel 00 times Medical daily. Branch Apply 4 g qid glipiZIDE 2021-0 Yes [id number] 2.5mg Take 1 [facility] XL 2.5 mg 7-05 tablet by [facility] o f 24 hr 00:00: mouth 2 [place] tablet 00 (two) Medical times Branch daily. Lidocaine 5 2021-0 Yes [id number] Apply to [facility] % cream 7-05 area(s) 2 [facility] of 00:00: (two) [place] 00 times Medical daily as Branch needed for Pain (scale 4-6). Apply 5g to affected areas BID PRN levothyroxi 2-0 Yes [id number] 150ug Take 1 [facility] ne 150 mcg 7-05 tablet by [facility] of tablet 00:00: mouth [place] 00 every Medical morning. Branch Diclofenac 2021-0 Yes [id number] Apply to [facility] Sodium 7-05 area(s) 4 [facility]y of (VOLTAREN) 00:00: (four) [place] 1 % gel 00 times Medical daily. Branch Apply 4 g qid glipiZIDE 2021-0 Yes [id number] 2.5mg Take 1 [facility] XL 2.5 mg 7-05 tablet by [facility] o f 24 hr 00:00: mouth 2 [place] tablet 00 (two) Medical times Branch daily. Lidocaine 5 2021-0 Yes [id number] Apply to [facility] % cream 7-05 area(s) 2 [facility] of 00:00: (two) [place] 00 times Medical daily as Branch needed for Pain (scale 4-6). Apply 5g to affected areas BID PRN levothyroxi 2022-0 Yes [id number] 150ug Take 1 [facility] ne 150 mcg 7-05 tablet by [facility] of tablet 00:00: mouth [place] 00 every Medical morning. Branch Diclofenac 2021-0 Yes [id number] Apply to [facility] Sodium 7-05 area(s) 4 [facility]y of (VOLTAREN) 00:00: (four) [place] 1 % gel 00 times Medical daily. Branch Apply 4 g qid glipiZIDE 2021-0 Yes [id number] 2.5mg Take 1 [facility] XL 2.5 mg 7-05 tablet by [facility] o f 24 hr 00:00: mouth 2 [place] tablet 00 (two) Medical times Branch daily. Lidocaine 5 2021-0 Yes [id number] Apply to [facility] % cream 7-05 area(s) 2 [facility] of 00:00: (two) [place] 00 times Medical daily as Branch needed for Pain (scale 4-6). Apply 5g to affected areas BID PRN levothyroxi 2-0 Yes [id number] 150ug Take 1 [facility] ne 150 mcg 7-05 tablet by [facility] of tablet 00:00: mouth [place] 00 every Medical morning. Branch Diclofenac 2021-0 Yes [id number] Apply to [facility] Sodium 7-05 area(s) 4 ity of (VOLTAREN) 00:00: (four) [place] 1 % gel 00 times Medical daily. Branch Apply 4 g qid glipiZIDE 2021-0 Yes [id number] 2.5mg Take 1 [facility] n[facility] XL 2.5 mg 7-05 tablet by ity o f 24 hr 00:00: mouth 2 [place] tablet 00 (two) Medical times Branch daily. Lidocaine 5 2021-0 Yes [id number] Apply to [facility] % cream 7-05 area(s) 2 it[facility] of 00:00: (two) [place] 00 times Medical daily as Branch needed for Pain (scale 4-6). Apply 5g to affected areas BID PRN levothyroxi 2-0 Yes [id number] 150ug Take 1 [facility] ne 150 mcg 7-05 tablet by ity of tablet 00:00: mouth [place] 00 every Medical morning. Branch Diclofenac 2-0 Yes [id number] Apply to [facility] Sodium 7-05 area(s) 4 ity of (VOLTAREN) 00:00: (four) [place] 1 % gel 00 times Medical daily. Branch Apply 4 g qid glipiZIDE 2021-0 Yes [id number] 2.5mg Take 1 [facility] n[facility] XL 2.5 mg 7-05 tablet by ity o f 24 hr 00:00: mouth 2 [place] tablet 00 (two) Medical times Branch daily. Lidocaine 5 2021-0 Yes [id number] Apply to [facility] % cream 7-05 area(s) 2 ity of 00:00: (two) [place] 00 times Medical daily as Branch needed for Pain (scale 4-6). Apply 5g to affected areas BID PRN levothyroxi 2021-0 Yes [id number] 150ug Take 1 [facility] ne 150 mcg 7-05 tablet by it[facility] of tablet 00:00: mouth [place] 00 every Medical morning. Branch Diclofenac 2021-0 Yes [id number] Apply to [facility] Sodium 7-05 area(s) 4 ity of (VOLTAREN) 00:00: (four) [place] 1 % gel 00 times Medical daily. Branch Apply 4 g qid glipiZIDE 2021-0 Yes [id number] 2.5mg Take 1 [facility] XL 2.5 mg 7-05 tablet by ity o f 24 hr 00:00: mouth 2 [place] tablet 00 (two) Medical times Branch daily. Lidocaine 5 2021-0 Yes [id number] Apply to [facility] % cream 7-05 area(s) 2 it[facility] of 00:00: (two) [place] 00 times Medical daily as Branch needed for Pain (scale 4-6). Apply 5g to affected areas BID PRN levothyroxi 2021-0 Yes [id number] 150ug Take 1 [facility] ne 150 mcg 7-05 tablet by [facility] of tablet 00:00: mouth [place] 00 every Medical morning. Branch Diclofenac 2021-0 Yes [id number] Apply to [facility] Sodium 7-05 area(s) 4 ity of (VOLTAREN) 00:00: (four) [place] 1 % gel 00 times Medical daily. Branch Apply 4 g qid glipiZIDE 2021-0 Yes [id number] 2.5mg Take 1 [facility] XL 2.5 mg 7-05 tablet by ity o f 24 hr 00:00: mouth 2 [place] tablet 00 (two) Medical times Branch daily. Lidocaine 5 2021-0 Yes [id number] Apply to [facility] % cream 7-05 area(s) 2 ity of 00:00: (two) [place] 00 times Medical daily as Branch needed for Pain (scale 4-6). Apply 5g to affected areas BID PRN levothyroxi 202-0 Yes [id number] 150ug Take 1 [facility] ne 150 mcg 7-05 tablet by it[facility] of tablet 00:00: mouth [place] 00 every Medical morning. Branch Diclofenac 2021-0 Yes [id number] Apply to [facility] Sodium 7-05 area(s) 4 ity of (VOLTAREN) 00:00: (four) [place] 1 % gel 00 times Medical daily. Branch Apply 4 g qid glipiZIDE 2021-0 Yes [id number] 2.5mg Take 1 [facility] XL 2.5 mg 7-05 tablet by ity o f 24 hr 00:00: mouth 2 [place] tablet 00 (two) Medical times Branch daily. Lidocaine 5 2021-0 Yes [id number] Apply to [facility] % cream 7-05 area(s) 2 ity of 00:00: (two) [place] 00 times Medical daily as Branch needed for Pain (scale 4-6). Apply 5g to affected areas BID PRN levothyroxi 2021-0 Yes [id number] 150ug Take 1 [facility] ne 150 mcg 7-05 tablet by it[facility] of tablet 00:00: mouth [place] 00 every Medical morning. Branch Diclofenac 2021-0 Yes [id number] Apply to [facility] Sodium 7-05 area(s) 4 ity of (VOLTAREN) 00:00: (four) [place] 1 % gel 00 times Medical daily. Branch Apply 4 g qid glipiZIDE 2021-0 Yes [id number] 2.5mg Take 1 [facility] XL 2.5 mg 7-05 tablet by ity o f 24 hr 00:00: mouth 2 [place] tablet 00 (two) Medical times Branch daily. Lidocaine 5 2021-0 Yes [id number] Apply to [facility] % cream 7-05 area(s) 2 it[facility] of 00:00: (two) [place] 00 times Medical daily as Branch needed for Pain (scale 4-6). Apply 5g to affected areas BID PRN levothyroxi 2-0 Yes [id number] 150ug Take 1 [facility] ne 150 mcg 7-05 tablet by it[facility] of tablet 00:00: mouth [place] 00 every Medical morning. Branch Diclofenac 2021-0 Yes [id number] Apply to [facility] Sodium 7-05 area(s) 4 ity of (VOLTAREN) 00:00: (four) [place] 1 % gel 00 times Medical daily. Branch Apply 4 g qid glipiZIDE 2021-0 Yes [id number] 2.5mg Take 1 [facility] n[facility] XL 2.5 mg 7-05 tablet by ity o f 24 hr 00:00: mouth 2 [place] tablet 00 (two) Medical times Branch daily. Lidocaine 5 2021-0 Yes [id number] Apply to [facility] % cream 7-05 area(s) 2 ity of 00:00: (two) [place] 00 times Medical daily as Branch needed for Pain (scale 4-6). Apply 5g to affected areas BID PRN levothyroxi 2021-0 Yes [id number] 150ug Take 1 [facility] ne 150 mcg 7-05 tablet by ity of tablet 00:00: mouth [place] 00 every Medical morning. Branch Diclofenac 2021-0 Yes [id number] Apply to [facility] Sodium 7-05 area(s) 4 ity of (VOLTAREN) 00:00: (four) [place] 1 % gel 00 times Medical daily. Branch Apply 4 g qid glipiZIDE 2021-0 Yes [id number] 2.5mg Take 1 [facility] XL 2.5 mg 7-05 tablet by ity o f 24 hr 00:00: mouth 2 [place] tablet 00 (two) Medical times Branch daily. Lidocaine 5 2021-0 Yes [id number] Apply to [facility] % cream 7-05 area(s) 2 it[facility] of 00:00: (two) [place] 00 times Medical daily as Branch needed for Pain (scale 4-6). Apply 5g to affected areas BID PRN levothyroxi 2021-0 Yes [id number] 150ug Take 1 [facility] ne 150 mcg 7-05 tablet by ity of tablet 00:00: mouth [place] 00 every Medical morning. Branch Diclofenac 2021-0 Yes [id number] Apply to [facility] Sodium 7-05 area(s) 4 ity of (VOLTAREN) 00:00: (four) [place] 1 % gel 00 times Medical daily. Branch Apply 4 g qid glipiZIDE 2021-0 Yes [id number] 2.5mg Take 1 [facility] XL 2.5 mg 7-05 tablet by ity o f 24 hr 00:00: mouth 2 [place] tablet 00 (two) Medical times Branch daily. Lidocaine 5 2021-0 Yes [id number] Apply to [facility] % cream 7-05 area(s) 2 it[facility] of 00:00: (two) [place] 00 times Medical daily as Branch needed for Pain (scale 4-6). Apply 5g to affected areas BID PRN levothyroxi 2021-0 Yes [id number] 150ug Take 1 [facility] ne 150 mcg 7-05 tablet by ity of tablet 00:00: mouth [place] 00 every Medical morning. Branch Diclofenac 2021-0 Yes [id number] Apply to [facility] Sodium 7-05 area(s) 4 ity of (VOLTAREN) 00:00: (four) [place] 1 % gel 00 times Medical daily. Branch Apply 4 g qid glipiZIDE 2021-0 Yes [id number] 2.5mg Take 1 [facility] XL 2.5 mg 7-05 tablet by ity o f 24 hr 00:00: mouth 2 [place] tablet 00 (two) Medical times Branch daily. Lidocaine 5 2021-0 Yes [id number] Apply to [facility] % cream 7-05 area(s) 2 it[facility] of 00:00: (two) [place] 00 times Medical daily as Branch needed for Pain (scale 4-6). Apply 5g to affected areas BID PRN levothyroxi 2021-0 Yes [id number] 150ug Take 1 [facility] ne 150 mcg 7-05 tablet by [facility]y of tablet 00:00: mouth [place] 00 every Medical morning. Branch Diclofenac 2021-0 Yes [id number] Apply to [facility] Sodium 7-05 area(s) 4 ity of (VOLTAREN) 00:00: (four) [place] 1 % gel 00 times Medical daily. Branch Apply 4 g qid glipiZIDE 2021-0 Yes [id number] 2.5mg Take 1 [facility] XL 2.5 mg 7-05 tablet by ity o f 24 hr 00:00: mouth 2 [place] tablet 00 (two) Medical times Branch daily. Lidocaine 5 2021-0 Yes [id number] Apply to [facility] % cream 7-05 area(s) 2 it[facility] of 00:00: (two) [place] 00 times Medical daily as Branch needed for Pain (scale 4-6). Apply 5g to affected areas BID PRN levothyroxi 2-0 Yes [id number] 150ug Take 1 [facility] ne 150 mcg 7-05 tablet by [facility] of tablet 00:00: mouth [place] 00 every Medical morning. Branch Diclofenac 2022-0 Yes [id number] Apply to [facility] Sodium 7-05 area(s) 4 ity of (VOLTAREN) 00:00: (four) [place] 1 % gel 00 times Medical daily. Branch Apply 4 g qid glipiZIDE Yes [id number] 2.5mg Take 1 [facility] n[facility] XL 2.5 mg 7-05 tablet by ity o f 24 hr 00:00: mouth 2 [place] tablet 00 (two) Medical times Branch daily. Lidocaine 5 0 Yes [id number] Apply to [facility] % cream 7-05 area(s) 2 ity of 00:00: (two) [place] 00 times Medical daily as Branch needed for Pain (scale 4-6). Apply 5g to affected areas BID PRN levothyroxi Yes [id number] 150ug Take 1 [facility] ne 150 mcg 7-05 tablet by ity of tablet 00:00: mouth [place] 00 every Medical morning. Branch Diclofenac Yes [id number] Apply to [facility] Sodium 7-05 area(s) 4 ity of (VOLTAREN) 00:00: (four) [place] 1 % gel 00 times Medical daily. Branch Apply 4 g qid glipiZIDE Yes [id number] 2.5mg Take 1 [facility] n[facility] XL 2.5 mg 7-05 tablet by ity o f 24 hr 00:00: mouth 2 [place] tablet 00 (two) Medical times Branch daily. Lidocaine 5 Yes [id number] Apply to [facility] % cream 7-05 area(s) 2 it[facility] of 00:00: (two) [place] 00 times Medical daily as Branch needed for Pain (scale 4-6). Apply 5g to affected areas BID PRN levothyroxi 2021-0 2022- No [id number] 150ug Take 1 [facility] ne 150 mcg 7-05 01-05 tablet by ity of tablet 00:00: 00:00 mouth [place] 00 :00 every Medical morning. Branch Diclofenac 2022- No [id number] Apply to [facility] Sodium 7-05 01-05 area(s) 4 ity of (VOLTAREN) 00:00: 00:00 (four) [place] 1 % gel 00 :00 times Medical daily. Branch Apply 4 g qid glipiZIDE 2022- No [id number] 2.5mg Take 1 [facility] XL 2.5 mg 09-05 tablet by ity of 24 hr 00:00: 00:00 mouth 2 [place] tablet 00 :00 (two) Medical times Branch daily. Lidocaine 5 2022- No [id number] Apply to [facility] % cream 09-05 area(s) 2 ity of 00:00: 00:00 (two) [place] 00 :00 times Medical daily as Branch needed for Pain (scale 4-6). Apply 5g to affected areas BID PRN levothyroxi 2022- No [id number] 150ug Take 1 [facility] ne 150 mcg 09-05 tablet by ity of tablet 00:00: 00:00 mouth [place] 00 :00 every Medical morning. Branch Diclofenac 2022- No [id number] Apply to [facility] Sodium 09-05 area(s) 4 ity of (VOLTAREN) 00:00: 00:00 (four) [place] 1 % gel 00 :00 times Medical daily. Branch Apply 4 g qid glipiZIDE No [id number] 2.5mg Take 1 [facility] XL 2.5 mg 09-05 tablet by ity of 24 hr 00:00: 00:00 mouth 2 [place] tablet 00 :00 (two) Medical times Branch daily. Lidocaine 5 No [id number] Apply to [facility] % cream 09-05 area(s) 2 ity of 00:00: 00:00 (two) [place] 00 :00 times Medical daily as Branch needed for Pain (scale 4-6). Apply 5g to affected areas BID PRN levothyroxi No [id number] 150ug Take 1 [facility] ne 150 mcg 09-05 tablet by ity of tablet 00:00: 00:00 mouth [place] 00 :00 every Medical morning. Branch Diclofenac 2022- No [id number] Apply to [facility] Sodium 09-05 area(s) 4 ity of (VOLTAREN) 00:00: 00:00 (four) [place] 1 % gel 00 :00 times Medical daily. Branch Apply 4 g qid glipiZIDE 2022- No [id number] 2.5mg Take 1 [facility] XL 2.5 mg 09-05 tablet by ity of 24 hr 00:00: 00:00 mouth 2 [place] tablet 00 :00 (two) Medical times Branch daily. Lidocaine 5 2022- No [id number] Apply to [facility] % cream 09-05 area(s) 2 ity of 00:00: 00:00 (two) [place] 00 :00 times Medical daily as Branch needed for Pain (scale 4-6). Apply 5g to affected areas BID PRN levothyroxi 2022- No [id number] 150ug Take 1 [facility] ne 150 mcg 09-05 tablet by ity of tablet 00:00: 00:00 mouth [place] 00 :00 every Medical morning. Branch Diclofenac 2022- No [id number] Apply to [facility] Sodium 09-05 area(s) 4 ity of (VOLTAREN) 00:00: 00:00 (four) [place] 1 % gel 00 :00 times Medical daily. Branch Apply 4 g qid glipiZIDE 2022- No [id number] 2.5mg Take 1 [facility] XL 2.5 mg 09-05 tablet by ity of 24 hr 00:00: 00:00 mouth 2 [place] tablet 00 :00 (two) Medical times Branch daily. Lidocaine 5 2022- No [id number] Apply to [facility] % cream 09-05 area(s) 2 ity of 00:00: 00:00 (two) [place] 00 :00 times Medical daily as Branch needed for Pain (scale 4-6). Apply 5g to affected areas BID PRN baclofen 10 2021- No [id number] 10mg Take 1 [facility] mg tablet 09-05 tablet by ity of 00:00: 00:00 mouth 3 [place] 00 :00 (three) Medical times Branch daily as needed for Pain (scale 7-10). docusate No [id number] 100mg Take 1 [facility] nivers 100 mg 09-05 capsule by ity of capsule 00:00: 00:00 mouth 2 [place] 00 :00 (two) Medical times Branch daily. docusate 2021- No [id number] 100mg Take 1 [facility] nivers 100 mg 7-05 10-05 capsule by ity of capsule 00:00: 00:00 mouth 2 [place] 00 :00 (two) Medical times Branch daily. docusate 2021- No [id number] 100mg Take 1 [facility] nivers 100 mg 7-05 10-05 capsule by ity of capsule 00:00: 00:00 mouth 2 [place] 00 :00 (two) Medical times Branch daily. pravastatin Yes [id number] 40mg Take 1 [facility] 40 mg 3-30 tablet by [facility] of tablet 00:00: mouth at [place] 00 bedtime. Medical Branch tamsulosin Yes [id number] .4mg Take 1 [facility] 0.4 mg 24 3-30 9102 capsule by ity of hr capsule 00:00: mouth [place] 00 daily. Medical Branch ergocalcife Yes [id number] Take 1 [facility] rol, 3-30 capsule by ity of vitamin d2, 00:00: mouth [place] 1,250 mcg 00 weekly. Medical (50,000 Branch unit) capsule traZODone 0 Yes [id number] 50mg Take 1 [facility] nivers 50 mg 3-30 tablet by ity of tablet 00:00: mouth at [place] 00 bedtime. Medical Branch pravastatin 0 Yes [id number] 40mg Take 1 [facility] 40 mg 3-30 tablet by ity of tablet 00:00: mouth at [place] 00 bedtime. Medical Branch tamsulosin Yes [id number] .4mg Take 1 [facility] 0.4 mg 24 3-30 9102 capsule by ity of hr capsule 00:00: mouth [place] 00 daily. Medical Branch ergocalcife 0 Yes [id number] Take 1 [facility] rol, 3-30 capsule by ity of vitamin d2, 00:00: mouth [place] 1,250 mcg 00 weekly. Medical (50,000 Branch unit) capsule traZODone 0 Yes [id number] 50mg Take 1 [facility] nivers 50 mg 3-30 tablet by ity of tablet 00:00: mouth at [place] 00 bedtime. Medical Branch pravastatin 0 Yes [id number] 40mg Take 1 [facility] 40 mg 3-30 tablet by ity of tablet 00:00: mouth at [place] 00 bedtime. Medical Branch tamsulosin 2021-0 Yes [id number] .4mg Take 1 [facility] 0.4 mg 24 3-30 9102 capsule by ity of hr capsule 00:00: mouth [place] 00 daily. Medical Branch ergocalcife 2021-0 Yes [id number] Take 1 [facility] rol, 3-30 capsule by ity of vitamin d2, 00:00: mouth [place] 1,250 mcg 00 weekly. Medical (50,000 Branch unit) capsule traZODone 2021-0 Yes [id number] 50mg Take 1 [facility] nivers 50 mg 3-30 tablet by ity of tablet 00:00: mouth at [place] 00 bedtime. Medical Branch pravastatin 2021-0 Yes [id number] 40mg Take 1 [facility] 40 mg 3-30 tablet by ity of tablet 00:00: mouth at [place] 00 bedtime. Medical Branch tamsulosin 0 Yes [id number] .4mg Take 1 [facility] 0.4 mg 24 3-30 9102 capsule by ity of hr capsule 00:00: mouth [place] 00 daily. Medical Branch ergocalcife 2021-0 Yes [id number] Take 1 [facility] rol, 3-30 capsule by ity of vitamin d2, 00:00: mouth [place] 1,250 mcg 00 weekly. Medical (50,000 Branch unit) capsule traZODone 2021-0 Yes [id number] 50mg Take 1 [facility] nivers 50 mg 3-30 tablet by ity of tablet 00:00: mouth at [place] 00 bedtime. Medical Branch pravastatin 2021-0 Yes [id number] 40mg Take 1 [facility] 40 mg 3-30 tablet by ity of tablet 00:00: mouth at [place] 00 bedtime. Medical Branch tamsulosin 2021-0 Yes [id number] .4mg Take 1 [facility] 0.4 mg 24 3-30 9102 capsule by ity of hr capsule 00:00: mouth [place] 00 daily. Medical Branch ergocalcife 2021-0 Yes [id number] Take 1 [facility] rol, 3-30 capsule by ity of vitamin d2, 00:00: mouth [place] 1,250 mcg 00 weekly. Medical (50,000 Branch unit) capsule traZODone 2021-0 Yes [id number] 50mg Take 1 [facility] nivers 50 mg 3-30 tablet by ity of tablet 00:00: mouth at [place] 00 bedtime. Medical Branch pravastatin 2021-0 Yes [id number] 40mg Take 1 [facility] 40 mg 3-30 tablet by ity of tablet 00:00: mouth at [place] 00 bedtime. Medical Branch tamsulosin 2021-0 Yes [id number] .4mg Take 1 [facility] 0.4 mg 24 3-30 9102 capsule by ity of hr capsule 00:00: mouth [place] 00 daily. Medical Branch ergocalcife 2021-0 Yes [id number] Take 1 [facility] rol, 3-30 capsule by ity of vitamin d2, 00:00: mouth [place] 1,250 mcg 00 weekly. Medical (50,000 Branch unit) capsule traZODone 2021-0 Yes [id number] 50mg Take 1 [facility] nivers 50 mg 3-30 tablet by ity of tablet 00:00: mouth at [place] 00 bedtime. Medical Branch pravastatin 2021-0 Yes [id number] 40mg Take 1 [facility] 40 mg 3-30 tablet by ity of tablet 00:00: mouth at [place] 00 bedtime. Medical Branch tamsulosin 2021-0 Yes [id number] .4mg Take 1 [facility] 0.4 mg 24 3-30 9102 capsule by ity of hr capsule 00:00: mouth [place] 00 daily. Medical Branch ergocalcife 2021-0 Yes [id number] Take 1 [facility] rol, 3-30 capsule by ity of vitamin d2, 00:00: mouth [place] 1,250 mcg 00 weekly. Medical (50,000 Branch unit) capsule traZODone 2021-0 Yes [id number] 50mg Take 1 [facility] nivers 50 mg 3-30 tablet by ity of tablet 00:00: mouth at [place] 00 bedtime. Medical Branch pravastatin 2021-0 Yes [id number] 40mg Take 1 [facility] 40 mg 3-30 tablet by ity of tablet 00:00: mouth at [place] 00 bedtime. Medical Branch tamsulosin 2021-0 Yes [id number] .4mg Take 1 [facility] 0.4 mg 24 3-30 9102 capsule by ity of hr capsule 00:00: mouth [place] 00 daily. Medical Branch ergocalcife 2021-0 Yes [id number] Take 1 [facility] rol, 3-30 capsule by ity of vitamin d2, 00:00: mouth [place] 1,250 mcg 00 weekly. Medical (50,000 Branch unit) capsule traZODone 2021-0 Yes [id number] 50mg Take 1 [facility] nivers 50 mg 3-30 tablet by ity of tablet 00:00: mouth at [place] 00 bedtime. Medical Branch pravastatin 0 Yes [id number] 40mg Take 1 [facility] 40 mg 3-30 tablet by ity of tablet 00:00: mouth at [place] 00 bedtime. Medical Branch tamsulosin 0 Yes [id number] .4mg Take 1 [facility] 0.4 mg 24 3-30 9102 capsule by ity of hr capsule 00:00: mouth [place] 00 daily. Medical Branch ergocalcife 0 Yes [id number] Take 1 [facility] rol, 3-30 capsule by ity of vitamin d2, 00:00: mouth [place] 1,250 mcg 00 weekly. Medical (50,000 Branch unit) capsule traZODone 0 Yes [id number] 50mg Take 1 [facility] nivers 50 mg 3-30 tablet by ity of tablet 00:00: mouth at [place] 00 bedtime. Medical Branch pravastatin 0 Yes [id number] 40mg Take 1 [facility] 40 mg 3-30 tablet by ity of tablet 00:00: mouth at [place] 00 bedtime. Medical Branch tamsulosin 0 Yes [id number] .4mg Take 1 [facility] 0.4 mg 24 3-30 9102 capsule by ity of hr capsule 00:00: mouth [place] 00 daily. Medical Branch ergocalcife 2021-0 Yes [id number] Take 1 [facility] rol, 3-30 capsule by ity of vitamin d2, 00:00: mouth [place] 1,250 mcg 00 weekly. Medical (50,000 Branch unit) capsule traZODone 2021-0 Yes [id number] 50mg Take 1 [facility] nivers 50 mg 3-30 tablet by ity of tablet 00:00: mouth at [place] 00 bedtime. Medical Branch pravastatin 0 Yes [id number] 40mg Take 1 [facility] 40 mg 3-30 tablet by ity of tablet 00:00: mouth at [place] 00 bedtime. Medical Branch tamsulosin 2021-0 Yes [id number] .4mg Take 1 [facility] 0.4 mg 24 3-30 9102 capsule by ity of hr capsule 00:00: mouth [place] 00 daily. Medical Branch ergocalcife 2021-0 Yes [id number] Take 1 [facility] rol, 3-30 capsule by ity of vitamin d2, 00:00: mouth [place] 1,250 mcg 00 weekly. Medical (50,000 Branch unit) capsule traZODone 2021-0 Yes [id number] 50mg Take 1 [facility] nivers 50 mg 3-30 tablet by ity of tablet 00:00: mouth at [place] 00 bedtime. Medical Branch pravastatin 2021-0 Yes [id number] 40mg Take 1 [facility] 40 mg 3-30 tablet by ity of tablet 00:00: mouth at [place] 00 bedtime. Medical Branch tamsulosin 0 Yes [id number] .4mg Take 1 [facility] 0.4 mg 24 3-30 9102 capsule by ity of hr capsule 00:00: mouth [place] 00 daily. Medical Branch ergocalcife 0 Yes [id number] Take 1 [facility] rol, 3-30 capsule by ity of vitamin d2, 00:00: mouth [place] 1,250 mcg 00 weekly. Medical (50,000 Branch unit) capsule traZODone 2021-0 Yes [id number] 50mg Take 1 [facility] nivers 50 mg 3-30 tablet by ity of tablet 00:00: mouth at [place] 00 bedtime. Medical Branch pravastatin 2021-0 Yes [id number] 40mg Take 1 [facility] 40 mg 3-30 tablet by ity of tablet 00:00: mouth at [place] 00 bedtime. Medical Branch tamsulosin 2021-0 Yes [id number] .4mg Take 1 [facility] 0.4 mg 24 3-30 9102 capsule by ity of hr capsule 00:00: mouth [place] 00 daily. Medical Branch ergocalcife 0 Yes [id number] Take 1 [facility] rol, 3-30 capsule by ity of vitamin d2, 00:00: mouth [place] 1,250 mcg 00 weekly. Medical (50,000 Branch unit) capsule traZODone 2021-0 Yes [id number] 50mg Take 1 [facility] nivers 50 mg 3-30 tablet by ity of tablet 00:00: mouth at [place] 00 bedtime. Medical Branch pravastatin 2021-0 Yes [id number] 40mg Take 1 [facility] 40 mg 3-30 tablet by ity of tablet 00:00: mouth at [place] 00 bedtime. Medical Branch tamsulosin 0 Yes [id number] .4mg Take 1 [facility] 0.4 mg 24 3-30 9102 capsule by ity of hr capsule 00:00: mouth [place] 00 daily. Medical Branch ergocalcife 0 Yes [id number] Take 1 [facility] rol, 3-30 capsule by ity of vitamin d2, 00:00: mouth [place] 1,250 mcg 00 weekly. Medical (50,000 Branch unit) capsule traZODone 2021-0 Yes [id number] 50mg Take 1 [facility] nivers 50 mg 3-30 tablet by ity of tablet 00:00: mouth at [place] 00 bedtime. Medical Branch pravastatin 0 Yes [id number] 40mg Take 1 [facility] 40 mg 3-30 tablet by ity of tablet 00:00: mouth at [place] 00 bedtime. Medical Branch tamsulosin Yes [id number] .4mg Take 1 [facility] 0.4 mg 24 3-30 9102 capsule by ity of hr capsule 00:00: mouth [place] 00 daily. Medical Branch ergocalcife 0 Yes [id number] Take 1 [facility] rol, 3-30 capsule by ity of vitamin d2, 00:00: mouth [place] 1,250 mcg 00 weekly. Medical (50,000 Branch unit) capsule traZODone 0 Yes [id number] 50mg Take 1 [facility] nivers 50 mg 3-30 tablet by ity of tablet 00:00: mouth at [place] 00 bedtime. Medical Branch pravastatin 0 Yes [id number] 40mg Take 1 [facility] 40 mg 3-30 tablet by ity of tablet 00:00: mouth at [place] 00 bedtime. Medical Branch tamsulosin 0 Yes [id number] .4mg Take 1 [facility] 0.4 mg 24 3-30 9102 capsule by ity of hr capsule 00:00: mouth [place] 00 daily. Medical Branch ergocalcife 0 Yes [id number] Take 1 [facility] rol, 3-30 capsule by ity of vitamin d2, 00:00: mouth [place] 1,250 mcg 00 weekly. Medical (50,000 Branch unit) capsule traZODone 2021-0 Yes [id number] 50mg Take 1 [facility] nivers 50 mg 3-30 tablet by ity of tablet 00:00: mouth at [place] 00 bedtime. Medical Branch pravastatin 2021-0 Yes [id number] 40mg Take 1 [facility] 40 mg 3-30 tablet by ity of tablet 00:00: mouth at [place] 00 bedtime. Medical Branch tamsulosin 0 Yes [id number] .4mg Take 1 [facility] 0.4 mg 24 3-30 9102 capsule by ity of hr capsule 00:00: mouth [place] 00 daily. Medical Branch ergocalcife 0 Yes [id number] Take 1 [facility] rol, 3-30 capsule by ity of vitamin d2, 00:00: mouth [place] 1,250 mcg 00 weekly. Medical (50,000 Branch unit) capsule traZODone Yes [id number] 50mg Take 1 [facility] nivers 50 mg 3-30 tablet by ity of tablet 00:00: mouth at [place] 00 bedtime. Medical Branch pravastatin 0 Yes [id number] 40mg Take 1 [facility] 40 mg 3-30 tablet by ity of tablet 00:00: mouth at [place] 00 bedtime. Medical Branch tamsulosin Yes [id number] .4mg Take 1 [facility] 0.4 mg 24 3-30 9102 capsule by ity of hr capsule 00:00: mouth [place] 00 daily. Medical Branch ergocalcife 0 Yes [id number] Take 1 [facility] rol, 3-30 capsule by ity of vitamin d2, 00:00: mouth [place] 1,250 mcg 00 weekly. Medical (50,000 Branch unit) capsule traZODone 2021-0 Yes [id number] 50mg Take 1 [facility] nivers 50 mg 3-30 tablet by ity of tablet 00:00: mouth at [place] 00 bedtime. Medical Branch pravastatin 0 Yes [id number] 40mg Take 1 [facility] 40 mg 3-30 tablet by ity of tablet 00:00: mouth at [place] 00 bedtime. Medical Branch tamsulosin 0 Yes [id number] .4mg Take 1 [facility] 0.4 mg 24 3-30 9102 capsule by ity of hr capsule 00:00: mouth [place] 00 daily. Medical Branch ergocalcife 0 Yes [id number] Take 1 [facility] rol, 3-30 capsule by ity of vitamin d2, 00:00: mouth [place] 1,250 mcg 00 weekly. Medical (50,000 Branch unit) capsule traZODone 2021-0 Yes [id number] 50mg Take 1 [facility] nivers 50 mg 3-30 tablet by ity of tablet 00:00: mouth at [place] 00 bedtime. Medical Branch pravastatin 2021-0 Yes [id number] 40mg Take 1 [facility] 40 mg 3-30 tablet by ity of tablet 00:00: mouth at [place] 00 bedtime. Medical Branch tamsulosin 0 Yes [id number] .4mg Take 1 [facility] 0.4 mg 24 3-30 9102 capsule by ity of hr capsule 00:00: mouth [place] 00 daily. Medical Branch ergocalcife 0 Yes [id number] Take 1 [facility] rol, 3-30 capsule by ity of vitamin d2, 00:00: mouth [place] 1,250 mcg 00 weekly. Medical (50,000 Branch unit) capsule traZODone 2021-0 Yes [id number] 50mg Take 1 [facility] nivers 50 mg 3-30 tablet by ity of tablet 00:00: mouth at [place] 00 bedtime. Medical Branch pravastatin 0 Yes [id number] 40mg Take 1 [facility] 40 mg 3-30 tablet by ity of tablet 00:00: mouth at [place] 00 bedtime. Medical Branch tamsulosin 0 Yes [id number] .4mg Take 1 [facility] 0.4 mg 24 3-30 9102 capsule by ity of hr capsule 00:00: mouth [place] 00 daily. [facility] ergocalcife 0 Yes [id number] Take 1 [facility] rol, 3-30 capsule by [facility] of vitamin d2, 00:00: mouth [place] 1,250 mcg 00 weekly. [facility] (50,000 Branch unit) capsule traZODone 2021-0 Yes [id number] 50mg Take 1 [facility] 50 mg 3-30 tablet by [facility] of tablet 00:00: mouth at [place] 00 bedtime. [facility] pravastatin 2021-0 Yes [id number] 40mg Take 1 [facility] 40 mg 3-30 tablet by [facility] of tablet 00:00: mouth at [place] 00 bedtime. [facility] tamsulosin 2021-0 Yes [id number] .4mg Take 1 [facility] 0.4 mg 24 3-30 9102 capsule by ity of hr capsule 00:00: mouth [place] 00 daily. [facility] ergocalcife 0 Yes [id number] Take 1 [facility] rol, 3-30 capsule by ity of vitamin d2, 00:00: mouth [place] 1,250 mcg 00 weekly. [facility] (50,000 Branch unit) capsule traZODone 0 Yes [id number] 50mg Take 1 [facility] 50 mg 3-30 tablet by [facility] of tablet 00:00: mouth at [place] 00 bedtime. [facility] pravastatin 0 Yes [id number] 40mg Take 1 [facility] 40 mg 3-30 tablet by [facility]y of tablet 00:00: mouth at [place] 00 bedtime. [facility] tamsulosin Yes [id number] .4mg Take 1 [facility] 0.4 mg 24 3-30 9102 capsule by ity of hr capsule 00:00: mouth [place] 00 daily. [facility] ergocalcife 0 Yes [id number] Take 1 [facility] rol, 3-30 capsule by ity of vitamin d2, 00:00: mouth [place] 1,250 mcg 00 weekly. [facility] (50,000 Branch unit) capsule traZODone 0 Yes [id number] 50mg Take 1 [facility] 50 mg 3-30 tablet by ity of tablet 00:00: mouth at [place] 00 bedtime. [facility] pravastatin 0 Yes [id number] 40mg Take 1 [facility] 40 mg 3-30 tablet by ity of tablet 00:00: mouth at [place] 00 bedtime. [facility] tamsulosin 0 Yes [id number] .4mg Take 1 [facility] 0.4 mg 24 3-30 9102 capsule by ity of hr capsule 00:00: mouth [place] 00 daily. [facility] ergocalcife 0 Yes [id number] Take 1 [facility] rol, 3-30 capsule by ity of vitamin d2, 00:00: mouth [place] 1,250 mcg 00 weekly. Medical (50,000 Branch unit) capsule traZODone 2021-0 Yes [id number] 50mg Take 1 [facility] 50 mg 3-30 tablet by ity of tablet 00:00: mouth at [place] 00 bedtime. [facility] pravastatin 2021-0 Yes [id number] 40mg Take 1 [facility] 40 mg 3-30 tablet by ity of tablet 00:00: mouth at [place] 00 bedtime. [facility] tamsulosin 2021-0 Yes [id number] .4mg Take 1 [facility] 0.4 mg 24 3-30 9102 capsule by ity of hr capsule 00:00: mouth [place] 00 daily. [facility] ergocalcife 2021-0 Yes [id number] Take 1 [facility] rol, 3-30 capsule by ity of vitamin d2, 00:00: mouth [place] 1,250 mcg 00 weekly. [facility] (50,000 Branch unit) capsule traZODone 2021-0 Yes [id number] 50mg Take 1 [facility] 50 mg 3-30 tablet by [facility]y of tablet 00:00: mouth at [place] 00 bedtime. [facility] pravastatin 0 Yes [id number] 40mg Take 1 [facility] 40 mg 3-30 tablet by ity of tablet 00:00: mouth at [place] 00 bedtime. [facility] tamsulosin 0 Yes [id number] .4mg Take 1 [facility] 0.4 mg 24 3-30 9102 capsule by ity of hr capsule 00:00: mouth [place] 00 daily. [facility] ergocalcife 0 Yes [id number] Take 1 [facility] rol, 3-30 capsule by ity of vitamin d2, 00:00: mouth [place] 1,250 mcg 00 weekly. Medical (50,000 Branch unit) capsule traZODone 2021-0 Yes [id number] 50mg Take 1 [facility] 50 mg 3-30 tablet by ity of tablet 00:00: mouth at [place] 00 bedtime. [facility] pravastatin 2021-0 Yes [id number] 40mg Take 1 [facility] 40 mg 3-30 tablet by ity of tablet 00:00: mouth at [place] 00 bedtime. [facility] tamsulosin 2021-0 Yes [id number] .4mg Take 1 [facility] 0.4 mg 24 3-30 9102 capsule by ity of hr capsule 00:00: mouth [place] 00 daily. [facility] ergocalcife 2021-0 Yes [id number] Take 1 [facility] rol, 3-30 capsule by ity of vitamin d2, 00:00: mouth [place] 1,250 mcg 00 weekly. [facility] (50,000 Branch unit) capsule traZODone 0 Yes [id number] 50mg Take 1 [facility] 50 mg 3-30 tablet by ity of tablet 00:00: mouth at [place] 00 bedtime. [facility] pravastatin 0 Yes [id number] 40mg Take 1 [facility] 40 mg 3-30 tablet by ity of tablet 00:00: mouth at [place] 00 bedtime. [facility] tamsulosin 0 Yes [id number] .4mg Take 1 [facility] 0.4 mg 24 3-30 9102 capsule by ity of hr capsule 00:00: mouth [place] 00 daily. [facility] ergocalcife 0 Yes [id number] Take 1 [facility] rol, 3-30 capsule by ity of vitamin d2, 00:00: mouth [place] 1,250 mcg 00 weekly. Medical (50,000 Branch unit) capsule traZODone 0 Yes [id number] 50mg Take 1 [facility] 50 mg 3-30 tablet by ity of tablet 00:00: mouth at [place] 00 bedtime. [facility] pravastatin 0 Yes [id number] 40mg Take 1 [facility] 40 mg 3-30 tablet by ity of tablet 00:00: mouth at [place] 00 bedtime. [facility] tamsulosin 0 Yes [id number] .4mg Take 1 [facility] 0.4 mg 24 3-30 9102 capsule by ity of hr capsule 00:00: mouth [place] 00 daily. [facility] ergocalcife 0 Yes [id number] Take 1 [facility] rol, 3-30 capsule by ity of vitamin d2, 00:00: mouth [place] 1,250 mcg 00 weekly. Medical (50,000 Branch unit) capsule traZODone 2021-0 Yes [id number] 50mg Take 1 [facility] 50 mg 3-30 tablet by ity of tablet 00:00: mouth at [place] 00 bedtime. [facility] pravastatin 0 Yes [id number] 40mg Take 1 [facility] 40 mg 3-30 tablet by ity of tablet 00:00: mouth at [place] 00 bedtime. [facility] tamsulosin 0 Yes [id number] .4mg Take 1 [facility] 0.4 mg 24 3-30 9102 capsule by ity of hr capsule 00:00: mouth [place] 00 daily. [facility] ergocalcife 2022-0 Yes [id number] Take 1 [facility] rol, 3-30 capsule by ity of vitamin d2, 00:00: mouth [place] 1,250 mcg 00 weekly. Medical (50,000 Branch unit) capsule traZODone 2021-0 Yes [id number] 50mg Take 1 [facility] 50 mg 3-30 tablet by ity of tablet 00:00: mouth at [place] 00 bedtime. [facility] pravastatin 2021-0 Yes [id number] 40mg Take 1 [facility] 40 mg 3-30 tablet by ity of tablet 00:00: mouth at [place] 00 bedtime. [facility] tamsulosin 0 Yes [id number] .4mg Take 1 [facility] 0.4 mg 24 3-30 9102 capsule by ity of hr capsule 00:00: mouth [place] 00 daily. [facility] ergocalcife 0 Yes [id number] Take 1 [facility] rol, 3-30 capsule by ity of vitamin d2, 00:00: mouth [place] 1,250 mcg 00 weekly. [facility] (50,000 Branch unit) capsule traZODone 0 Yes [id number] 50mg Take 1 [facility] 50 mg 3-30 tablet by ity of tablet 00:00: mouth at [place] 00 bedtime. [facility] pravastatin 0 Yes [id number] 40mg Take 1 [facility] 40 mg 3-30 tablet by ity of tablet 00:00: mouth at [place] 00 bedtime. [facility] tamsulosin 0 Yes [id number] .4mg Take 1 [facility] 0.4 mg 24 3-30 9102 capsule by ity of hr capsule 00:00: mouth [place] 00 daily. [facility] ergocalcife 0 Yes [id number] Take 1 [facility] rol, 3-30 capsule by ity of vitamin d2, 00:00: mouth [place] 1,250 mcg 00 weekly. [facility] (50,000 Branch unit) capsule traZODone 0 Yes [id number] 50mg Take 1 [facility] n[facility] 50 mg 3-30 tablet by ity of tablet 00:00: mouth at [place] 00 bedtime. [facility] tamsulosin Yes [id number] .4mg Take 1 [facility] 0.4 mg 24 3-30 9102 capsule by ity of hr capsule 00:00: mouth [place] 00 daily. [facility] ergocalcife 2021-0 Yes [id number] Take 1 [facility] rol, 3-30 capsule by ity of vitamin d2, 00:00: mouth [place] 1,250 mcg 00 weekly. [facility] (50,000 Branch unit) capsule traZODone 2021-0 Yes [id number] 50mg Take 1 [facility] 50 mg 3-30 tablet by ity of tablet 00:00: mouth at [place] 00 bedtime. [facility] tamsulosin 2021-0 Yes [id number] .4mg Take 1 [facility] 0.4 mg 24 3-30 9102 capsule by ity of hr capsule 00:00: mouth [place] 00 daily. [facility] ergocalcife 0 Yes [id number] Take 1 [facility] rol, 3-30 capsule by ity of vitamin d2, 00:00: mouth [place] 1,250 mcg 00 weekly. Medical (50,000 Branch unit) capsule traZODone 2021-0 Yes [id number] 50mg Take 1 [facility] 50 mg 3-30 tablet by ity of tablet 00:00: mouth at [place] 00 bedtime. [facility] tamsulosin 0 Yes [id number] .4mg Take 1 [facility] 0.4 mg 24 3-30 9102 capsule by ity of hr capsule 00:00: mouth [place] 00 daily. [facility] ergocalcife 0 Yes [id number] Take 1 [facility] rol, 3-30 capsule by ity of vitamin d2, 00:00: mouth [place] 1,250 mcg 00 weekly. Medical (50,000 Branch unit) capsule traZODone 2021-0 Yes [id number] 50mg Take 1 [facility] 50 mg 3-30 tablet by ity of tablet 00:00: mouth at [place] 00 bedtime. [facility] tamsulosin 0 Yes [id number] .4mg Take 1 [facility] 0.4 mg 24 3-30 9102 capsule by ity of hr capsule 00:00: mouth [place] 00 daily. [facility] ergocalcife 2021-0 Yes [id number] Take 1 [facility] rol, 3-30 capsule by ity of vitamin d2, 00:00: mouth [place] 1,250 mcg 00 weekly. [facility] (50,000 Branch unit) capsule traZODone 2021-0 Yes [id number] 50mg Take 1 [facility] 50 mg 3-30 tablet by ity of tablet 00:00: mouth at [place] 00 bedtime. [facility] tamsulosin 2021-0 Yes [id number] .4mg Take 1 [facility] 0.4 mg 24 3-30 9102 capsule by ity of hr capsule 00:00: mouth [place] 00 daily. [facility] ergocalcife 2021-0 Yes [id number] Take 1 [facility] rol, 3-30 capsule by ity of vitamin d2, 00:00: mouth [place] 1,250 mcg 00 weekly. Medical (50,000 Branch unit) capsule traZODone 2021-0 Yes [id number] 50mg Take 1 [facility] n[facility] 50 mg 3-30 tablet by ity of tablet 00:00: mouth at [place] 00 bedtime. [facility] tamsulosin 2021-0 Yes [id number] .4mg Take 1 [facility] 0.4 mg 24 3-30 9102 capsule by ity of hr capsule 00:00: mouth [place] 00 daily. [facility] ergocalcife 2021-0 Yes [id number] Take 1 [facility] rol, 3-30 capsule by ity of vitamin d2, 00:00: mouth [place] 1,250 mcg 00 weekly. [facility] (50,000 Branch unit) capsule traZODone 2021-0 Yes [id number] 50mg Take 1 [facility] n[facility] 50 mg 3-30 tablet by ity of tablet 00:00: mouth at [place] 00 bedtime. [facility] tamsulosin 2021-0 Yes [id number] .4mg Take 1 [facility] 0.4 mg 24 3-30 9102 capsule by ity of hr capsule 00:00: mouth [place] 00 daily. [facility] ergocalcife 2021-0 Yes [id number] Take 1 [facility] rol, 3-30 capsule by ity of vitamin d2, 00:00: mouth [place] 1,250 mcg 00 weekly. Medical (50,000 Branch unit) capsule traZODone 2021-0 Yes [id number] 50mg Take 1 [facility] n[facility] 50 mg 3-30 tablet by ity of tablet 00:00: mouth at [place] 00 bedtime. [facility] tamsulosin 2021-0 Yes [id number] .4mg Take 1 [facility] 0.4 mg 24 3-30 9102 capsule by ity of hr capsule 00:00: mouth [place] 00 daily. [facility] ergocalcife 2021-0 Yes [id number] Take 1 [facility] rol, 3-30 capsule by ity of vitamin d2, 00:00: mouth [place] 1,250 mcg 00 weekly. Medical (50,000 Branch unit) capsule traZODone 2021-0 Yes [id number] 50mg Take 1 [facility] n[facility] 50 mg 3-30 tablet by ity of tablet 00:00: mouth at [place] 00 bedtime. [facility] tamsulosin 2021-0 Yes [id number] .4mg Take 1 [facility] 0.4 mg 24 3-30 9102 capsule by ity of hr capsule 00:00: mouth [place] 00 daily. [facility] ergocalcife 2021-0 Yes [id number] Take 1 [facility] rol, 3-30 capsule by ity of vitamin d2, 00:00: mouth [place] 1,250 mcg 00 weekly. Medical (50,000 Branch unit) capsule traZODone 2021-0 Yes [id number] 50mg Take 1 [facility] n[facility] 50 mg 3-30 tablet by ity of tablet 00:00: mouth at [place] 00 bedtime. [facility] tamsulosin 0 Yes [id number] .4mg Take 1 [facility] 0.4 mg 24 3-30 9102 capsule by ity of hr capsule 00:00: mouth [place] 00 daily. [facility] ergocalcife 2021-0 Yes [id number] Take 1 [facility] rol, 3-30 capsule by ity of vitamin d2, 00:00: mouth [place] 1,250 mcg 00 weekly. Medical (50,000 Branch unit) capsule traZODone 2021-0 Yes [id number] 50mg Take 1 [facility] n[facility] 50 mg 3-30 tablet by ity of tablet 00:00: mouth at [place] 00 bedtime. [facility] tamsulosin 2021-0 Yes [id number] .4mg Take 1 [facility] 0.4 mg 24 3-30 9102 capsule by ity of hr capsule 00:00: mouth [place] 00 daily. [facility] traZODone 2021-0 Yes [id number] 50mg Take 1 [facility] n[facility] 50 mg 3-30 tablet by ity of tablet 00:00: mouth at [place] 00 bedtime. [facility] tamsulosin 2021-0 Yes [id number] .4mg Take 1 [facility] 0.4 mg 24 3-30 9102 capsule by ity of hr capsule 00:00: mouth [place] 00 daily. [facility] traZODone 2021-0 Yes [id number] 50mg Take 1 [facility] n[facility] 50 mg 3-30 tablet by ity of tablet 00:00: mouth at [place] 00 bedtime. [facility] tamsulosin 0 Yes [id number] .4mg Take 1 [facility] 0.4 mg 24 3-30 9102 capsule by ity of hr capsule 00:00: mouth [place] 00 daily. [facility] traZODone 0 Yes [id number] 50mg Take 1 [facility] n[facility] 50 mg 3-30 tablet by ity of tablet 00:00: mouth at [place] 00 bedtime. [facility] tamsulosin 0 Yes [id number] .4mg Take 1 [facility] 0.4 mg 24 3-30 9102 capsule by ity of hr capsule 00:00: mouth [place] 00 daily. [facility] traZODone 0 Yes [id number] 50mg Take 1 [facility] n[facility] 50 mg 3-30 tablet by ity of tablet 00:00: mouth at [place] 00 bedtime. [facility] tamsulosin 0 Yes [id number] .4mg Take 1 [facility] 0.4 mg 24 3-30 9102 capsule by ity of hr capsule 00:00: mouth [place] 00 daily. [facility] traZODone 0 Yes [id number] 50mg Take 1 [facility] n[facility] 50 mg 3-30 tablet by ity of tablet 00:00: mouth at [place] 00 bedtime. [facility] tamsulosin 0 2022- No [id number] .4mg Take 1 [facility] 0.4 mg 24 3-30 -05 9102 capsule by ity of hr capsule 00:00: 00:00 mouth [place] 00 :00 daily. [facility] traZODone 2021-0 3- No [id number] 50mg Take 1 [facility] 50 mg 3-30 -05 tablet by ity of tablet 00:00: 00:00 mouth at [place] 00 :00 bedtime. [facility] tamsulosin 0 2022- No [id number] .4mg Take 1 [facility] 0.4 mg 24 3-30 -05 9102 capsule by ity of hr capsule 00:00: 00:00 mouth [place] 00 :00 daily. [facility] traZODone 2022- No [id number] 50mg Take 1 [facility] 50 mg 3-30 -05 tablet by ity of tablet 00:00: 00:00 mouth at [place] 00 :00 bedtime. [facility] tamsulosin 2022- No [id number] .4mg Take 1 [facility] 0.4 mg 24 3-30 -05 9102 capsule by ity of hr capsule 00:00: 00:00 mouth [place] 00 :00 daily. [facility] traZODone 2022- No [id number] 50mg Take 1 [facility] 50 mg 3-30 -05 tablet by ity of tablet 00:00: 00:00 mouth at [place] 00 :00 bedtime. [facility] tamsulosin 2022- No [id number] .4mg Take 1 [facility] 0.4 mg 24 3-30 -05 9102 capsule by ity of hr capsule 00:00: 00:00 mouth [place] 00 :00 daily. [facility] traZODone 2022- No [id number] 50mg Take 1 [facility] 50 mg 3-30 -05 tablet by ity of tablet 00:00: 00:00 mouth at [place] 00 :00 bedtime. [facility] ergocalcife 2021- No [id number] Take 1 [facility] rol, 3-30 12-12 capsule by ity of vitamin d2, 00:00: 00:00 mouth [place] 1,250 mcg 00 :00 weekly. [facility] (50,000 Branch unit) capsule pravastatin 2021- No [id number] 40mg Take 1 [facility] 40 mg 3-30 11-11 tablet by ity of tablet 00:00: 00:00 mouth at [place] 00 :00 bedtime. [facility] triamcinolo Yes [id number] 1{spray Use 1 [facility] ne 55 mcg 3-15 } [place] in [facility]y of nasal 00:00: each [place] inhaler 00 nostril 2 Medical (two) Branch times daily. ipratropium Yes [id number] 1{spray Use 1 [facility] 42 mcg 3-15 1 } [place] in ity of (0.06 %) 00:00: each [place] nasal spray 00 nostril 2 Med ical (two) Branch times daily. triamcinolo 2021-0 Yes [id number] 1{spray Use 1 [facility] ne 55 mcg 3-15 } [place] in ity of nasal 00:00: each [place] inhaler 00 nostril 2 Medical (two) Branch times daily. ipratropium 2021-0 Yes [id number] 1{spray Use 1 [facility] 42 mcg 3-15 1 } [place] in ity of (0.06 %) 00:00: each [place] nasal spray 00 nostril 2 Med ical (two) Branch times daily. triamcinolo 2021-0 Yes [id number] 1{spray Use 1 [facility] ne 55 mcg 3-15 } [place] in [facility]y of nasal 00:00: each [place] inhaler 00 nostril 2 Medical (two) Branch times daily. ipratropium 2021-0 Yes [id number] 1{spray Use 1 [facility] 42 mcg 3-15 1 } [place] in ity of (0.06 %) 00:00: each [place] nasal spray 00 nostril 2 Med ical (two) Branch times daily. triamcinolo 2021-0 Yes [id number] 1{spray Use 1 [facility] ne 55 mcg 3-15 } [place] in [facility]y of nasal 00:00: each [place] inhaler 00 nostril 2 Medical (two) Branch times daily. ipratropium 2021-0 Yes [id number] 1{spray Use 1 [facility] 42 mcg 3-15 1 } [place] in [facility]y of (0.06 %) 00:00: each [place] nasal spray 00 nostril 2 Med ical (two) Branch times daily. triamcinolo 2021-0 Yes [id number] 1{spray Use 1 [facility] ne 55 mcg 3-15 } [place] in [facility] of nasal 00:00: each [place] inhaler 00 nostril 2 Medical (two) Branch times daily. ipratropium 2021-0 Yes [id number] 1{spray Use 1 [facility] 42 mcg 3-15 1 } [place] in [facility]y of (0.06 %) 00:00: each [place] nasal spray 00 nostril 2 Med ical (two) Branch times daily. triamcinolo 2021-0 Yes [id number] 1{spray Use 1 [facility] ne 55 mcg 3-15 } [place] in [facility]y of nasal 00:00: each [place] inhaler 00 nostril 2 Medical (two) Branch times daily. ipratropium 2-0 Yes [id number] 1{spray Use 1 [facility] 42 mcg 3-15 1 } [place] in [facility]y of (0.06 %) 00:00: each [place] nasal spray 00 nostril 2 Med ical (two) Branch times daily. triamcinolo 2021-0 Yes [id number] 1{spray Use 1 [facility] ne 55 mcg 3-15 } [place] in [facility] of nasal 00:00: each [place] inhaler 00 nostril 2 Medical (two) Branch times daily. ipratropium 2021-0 Yes [id number] 1{spray Use 1 [facility] 42 mcg 3-15 1 } [place] in [facility]y of (0.06 %) 00:00: each [place] nasal spray 00 nostril 2 Med ical (two) Branch times daily. triamcinolo 2021-0 Yes [id number] 1{spray Use 1 [facility] ne 55 mcg 3-15 } [place] in [facility] of nasal 00:00: each [place] inhaler 00 nostril 2 Medical (two) Branch times daily. ipratropium 2021-0 Yes [id number] 1{spray Use 1 [facility] 42 mcg 3-15 1 } [place] in [facility]y of (0.06 %) 00:00: each [place] nasal spray 00 nostril 2 Med ical (two) Branch times daily. triamcinolo 2021-0 Yes [id number] 1{spray Use 1 [facility] ne 55 mcg 3-15 } [place] in [facility] of nasal 00:00: each [place] inhaler 00 nostril 2 Medical (two) Branch times daily. ipratropium 2-0 Yes [id number] 1{spray Use 1 [facility] 42 mcg 3-15 1 } [place] in [facility]y of (0.06 %) 00:00: each [place] nasal spray 00 nostril 2 Med ical (two) Branch times daily. triamcinolo 2021-0 Yes [id number] 1{spray Use 1 [facility] ne 55 mcg 3-15 } [place] in [facility] of nasal 00:00: each [place] inhaler 00 nostril 2 Medical (two) Branch times daily. ipratropium 2-0 Yes [id number] 1{spray Use 1 [facility] 42 mcg 3-15 1 } [place] in [facility]y of (0.06 %) 00:00: each [place] nasal spray 00 nostril 2 Med ical (two) Branch times daily. triamcinolo 2021-0 Yes [id number] 1{spray Use 1 [facility] ne 55 mcg 3-15 } [place] in [facility] of nasal 00:00: each [place] inhaler 00 nostril 2 Medical (two) Branch times daily. ipratropium 2021-0 Yes [id number] 1{spray Use 1 [facility] 42 mcg 3-15 1 } [place] in [facility]y of (0.06 %) 00:00: each [place] nasal spray 00 nostril 2 Med ical (two) Branch times daily. triamcinolo 2021-0 Yes [id number] 1{spray Use 1 [facility] ne 55 mcg 3-15 } [place] in [facility] of nasal 00:00: each [place] inhaler 00 nostril 2 Medical (two) Branch times daily. ipratropium 2021-0 Yes [id number] 1{spray Use 1 [facility] 42 mcg 3-15 1 } [place] in [facility] of (0.06 %) 00:00: each [place] nasal spray 00 nostril 2 Med ical (two) Branch times daily. triamcinolo 2021-0 Yes [id number] 1{spray Use 1 [facility] ne 55 mcg 3-15 } [place] in [facility] of nasal 00:00: each [place] inhaler 00 nostril 2 Medical (two) Branch times daily. ipratropium 2021-0 Yes [id number] 1{spray Use 1 [facility] 42 mcg 3-15 1 } [place] in [facility] of (0.06 %) 00:00: each [place] nasal spray 00 nostril 2 Med ical (two) Branch times daily. triamcinolo 2021-0 Yes [id number] 1{spray Use 1 [facility] ne 55 mcg 3-15 } [place] in [facility] of nasal 00:00: each [place] inhaler 00 nostril 2 Medical (two) Branch times daily. ipratropium 2021-0 Yes [id number] 1{spray Use 1 [facility] 42 mcg 3-15 1 } [place] in [facility] of (0.06 %) 00:00: each [place] nasal spray 00 nostril 2 Med ical (two) Branch times daily. triamcinolo 2021-0 Yes [id number] 1{spray Use 1 [facility] ne 55 mcg 3-15 } [place] in [facility] of nasal 00:00: each [place] inhaler 00 nostril 2 Medical (two) Branch times daily. ipratropium 2-0 Yes [id number] 1{spray Use 1 [facility] 42 mcg 3-15 1 } [place] in [facility]y of (0.06 %) 00:00: each [place] nasal spray 00 nostril 2 Med ical (two) Branch times daily. triamcinolo 2021-0 Yes [id number] 1{spray Use 1 [facility] ne 55 mcg 3-15 } [place] in [facility] of nasal 00:00: each [place] inhaler 00 nostril 2 Medical (two) Branch times daily. ipratropium 2-0 Yes [id number] 1{spray Use 1 [facility] 42 mcg 3-15 1 } [place] in [facility]y of (0.06 %) 00:00: each [place] nasal spray 00 nostril 2 Med ical (two) Branch times daily. triamcinolo 2021-0 Yes [id number] 1{spray Use 1 [facility] ne 55 mcg 3-15 } [place] in [facility] of nasal 00:00: each [place] inhaler 00 nostril 2 Medical (two) Branch times daily. ipratropium 2021-0 Yes [id number] 1{spray Use 1 [facility] 42 mcg 3-15 1 } [place] in [facility]y of (0.06 %) 00:00: each [place] nasal spray 00 nostril 2 Med ical (two) Branch times daily. triamcinolo 2021-0 Yes [id number] 1{spray Use 1 [facility] ne 55 mcg 3-15 } [place] in [facility] of nasal 00:00: each [place] inhaler 00 nostril 2 Medical (two) Branch times daily. ipratropium 2-0 Yes [id number] 1{spray Use 1 [facility] 42 mcg 3-15 1 } [place] in [facility] of (0.06 %) 00:00: each [place] nasal spray 00 nostril 2 Med ical (two) Branch times daily. triamcinolo 2021-0 Yes [id number] 1{spray Use 1 [facility] ne 55 mcg 3-15 } [place] in [facility] of nasal 00:00: each [place] inhaler 00 nostril 2 Medical (two) Branch times daily. ipratropium 2-0 Yes [id number] 1{spray Use 1 [facility] 42 mcg 3-15 1 } [place] in [facility]y of (0.06 %) 00:00: each [place] nasal spray 00 nostril 2 Med ical (two) Branch times daily. triamcinolo 2021-0 Yes [id number] 1{spray Use 1 [facility] ne 55 mcg 3-15 } [place] in [facility] of nasal 00:00: each [place] inhaler 00 nostril 2 Medical (two) Branch times daily. ipratropium 2021-0 Yes [id number] 1{spray Use 1 [facility] 42 mcg 3-15 1 } [place] in [facility]y of (0.06 %) 00:00: each [place] nasal spray 00 nostril 2 Med ical (two) Branch times daily. triamcinolo 2021-0 Yes [id number] 1{spray Use 1 [facility] ne 55 mcg 3-15 } [place] in [facility] of nasal 00:00: each [place] inhaler 00 nostril 2 Medical (two) Branch times daily. ipratropium 2021-0 Yes [id number] 1{spray Use 1 [facility] 42 mcg 3-15 1 } [place] in [facility]y of (0.06 %) 00:00: each [place] nasal spray 00 nostril 2 Med ical (two) Branch times daily. triamcinolo 2021-0 Yes [id number] 1{spray Use 1 [facility] ne 55 mcg 3-15 } [place] in [facility] of nasal 00:00: each [place] inhaler 00 nostril 2 Medical (two) Branch times daily. ipratropium 2021-0 Yes [id number] 1{spray Use 1 [facility] 42 mcg 3-15 1 } [place] in [facility]y of (0.06 %) 00:00: each [place] nasal spray 00 nostril 2 Med ical (two) Branch times daily. triamcinolo 2021-0 Yes [id number] 1{spray Use 1 [facility] ne 55 mcg 3-15 } [place] in [facility]y of nasal 00:00: each [place] inhaler 00 nostril 2 Medical (two) Branch times daily. ipratropium 2-0 Yes [id number] 1{spray Use 1 [facility] 42 mcg 3-15 1 } [place] in ity of (0.06 %) 00:00: each [place] nasal spray 00 nostril 2 Med ical (two) Branch times daily. triamcinolo 2021-0 Yes [id number] 1{spray Use 1 [facility] ne 55 mcg 3-15 } [place] in [facility]y of nasal 00:00: each [place] inhaler 00 nostril 2 Medical (two) Branch times daily. ipratropium 2021-0 Yes [id number] 1{spray Use 1 [facility] 42 mcg 3-15 1 } [place] in ity of (0.06 %) 00:00: each [place] nasal spray 00 nostril 2 Med ical (two) Branch times daily. triamcinolo 2021-0 Yes [id number] 1{spray Use 1 [facility] ne 55 mcg 3-15 } [place] in [facility]y of nasal 00:00: each [place] inhaler 00 nostril 2 Medical (two) Branch times daily. ipratropium 2021-0 Yes [id number] 1{spray Use 1 [facility] 42 mcg 3-15 1 } [facility] in ity of (0.06 %) 00:00: each [place] nasal spray 00 nostril 2 Med ical (two) Branch times daily. triamcinolo 2021-0 Yes [id number] 1{spray Use 1 [facility] ne 55 mcg 3-15 } [place] in ity of nasal 00:00: each [place] inhaler 00 nostril 2 Medical (two) Branch times daily. ipratropium 2021-0 Yes [id number] 1{spray Use 1 [facility] 42 mcg 3-15 1 } [place] in ity of (0.06 %) 00:00: each [place] nasal spray 00 nostril 2 Med ical (two) Branch times daily. triamcinolo 2021-0 Yes [id number] 1{spray Use 1 [facility] ne 55 mcg 3-15 } [place] in ity of nasal 00:00: each [place] inhaler 00 nostril 2 Medical (two) Branch times daily. ipratropium 2021-0 Yes [id number] 1{spray Use 1 [facility] 42 mcg 3-15 1 } [facility] in ity of (0.06 %) 00:00: each [place] nasal spray 00 nostril 2 Med ical (two) Branch times daily. triamcinolo 2021-0 Yes [id number] 1{spray Use 1 [facility] ne 55 mcg 3-15 } [facility] in ity of nasal 00:00: each [place] inhaler 00 nostril 2 Medical (two) Branch times daily. ipratropium 2021-0 Yes [id number] 1{spray Use 1 [facility] 42 mcg 3-15 1 } [place] in ity of (0.06 %) 00:00: each [place] nasal spray 00 nostril 2 Med ical (two) Branch times daily. triamcinolo 2021-0 Yes [id number] 1{spray Use 1 [facility] ne 55 mcg 3-15 } [place] in [facility]y of nasal 00:00: each [place] inhaler 00 nostril 2 Medical (two) Branch times daily. ipratropium 2021-0 Yes [id number] 1{spray Use 1 [facility] 42 mcg 3-15 1 } [facility] (0.06 %) 00:00: each [place] nasal spray 00 nostril 2 Med ical (two) Branch times daily. triamcinolo 2021-0 Yes [id number] 1{spray Use 1 [facility] 55 mcg 3-15 } [place] [facility] nasal 00:00: each [place] inhaler 00 nostril 2 [facility] (two) Branch times daily. ipratropium 2021-0 Yes [id number] 1{spray Use 1 [facility] 42 mcg 3-15 1 } [place] [facility] (0.06 %) 00:00: each [place] nasal spray 00 nostril 2 Med ical (two) Branch times daily. triamcinolo 2021-0 Yes [id number] 1{spray Use 1 [facility] 55 mcg 3-15 } [place] [facility] nasal 00:00: each [place] inhaler 00 nostril 2 Medical (two) Branch times daily. ipratropium 2021-0 Yes [id number] 1{spray Use 1 [facility] 42 mcg 3-15 1 } [place] [facility] (0.06 %) 00:00: each [place] nasal spray 00 nostril 2 Med ical (two) Branch times daily. triamcinolo 2021-0 Yes [id number] 1{spray Use 1 [facility] 55 mcg 3-15 } [place] [facility] nasal 00:00: each [place] inhaler 00 nostril 2 Medical (two) Branch times daily. ipratropium 2021-0 Yes [id number] 1{spray Use 1 [facility] 42 mcg 3-15 1 } [place] [facility] (0.06 %) 00:00: each [place] nasal spray 00 nostril 2 Med ical (two) Branch times daily. triamcinolo 2021-0 Yes [id number] 1{spray Use 1 [facility] 55 mcg 3-15 } [place] [facility] nasal 00:00: each [place] inhaler 00 nostril 2 [facility] (two) Branch times daily. ipratropium 2021-0 Yes [id number] 1{spray Use 1 [facility] 42 mcg 3-15 1 } [place] [facility] (0.06 %) 00:00: each [place] nasal spray 00 nostril 2 Med ical (two) Branch times daily. triamcinolo 2021-0 Yes [id number] 1{spray Use 1 [facility] 55 mcg 3-15 } [place] [facility] nasal 00:00: each [place] inhaler 00 nostril 2 [facility] (two) Branch times daily. ipratropium 2021-0 Yes [id number] 1{spray Use 1 [facility] 42 mcg 3-15 1 } [place] [facility] (0.06 %) 00:00: each [place] nasal spray 00 nostril 2 Med ical (two) Branch times daily. triamcinolo 2021-0 Yes [id number] 1{spray Use 1 [facility] 55 mcg 3-15 } [place] [facility] nasal 00:00: each [place] inhaler 00 nostril 2 [facility] (two) Branch times daily. ipratropium 2021-0 Yes [id number] 1{spray Use 1 [facility] 42 mcg 3-15 1 } [place] [facility] (0.06 %) 00:00: each [place] nasal spray 00 nostril 2 Med ical (two) Branch times daily. triamcinolo 2021-0 Yes [id number] 1{spray Use 1 [facility] 55 mcg 3-15 } [place] [facility] nasal 00:00: each [place] inhaler 00 nostril 2 [facility] (two) Branch times daily. ipratropium 2021-0 Yes [id number] 1{spray Use 1 [facility] 42 mcg 3-15 1 } [place] [facility] (0.06 %) 00:00: each [place] nasal spray 00 nostril 2 Med ical (two) Branch times daily. triamcinolo 2021-0 Yes [id number] 1{spray Use 1 [facility] 55 mcg 3-15 } [place] [facility] nasal 00:00: each [place] inhaler 00 nostril 2 [facility] (two) Branch times daily. ipratropium 2021-0 Yes [id number] 1{spray Use 1 [facility] 42 mcg 3-15 1 } [place] [facility] (0.06 %) 00:00: each [place] nasal spray 00 nostril 2 Med ical (two) Branch times daily. triamcinolo 2021-0 Yes [id number] 1{spray Use 1 [facility] 55 mcg 3-15 } [place] [facility] nasal 00:00: each [place] inhaler 00 nostril 2 [facility] (two) Branch times daily. ipratropium 2021-0 Yes [id number] 1{spray Use 1 [facility] 42 mcg 3-15 1 } [place] [facility] (0.06 %) 00:00: each [place] nasal spray 00 nostril 2 Med ical (two) Branch times daily. triamcinolo 2021-0 Yes [id number] 1{spray Use 1 [facility] 55 mcg 3-15 } [place] [facility] nasal 00:00: each [place] inhaler 00 nostril 2 [facility] (two) Branch times daily. ipratropium 2021-0 Yes [id number] 1{spray Use 1 [facility] 42 mcg 3-15 1 } [place] [facility] (0.06 %) 00:00: each [place] nasal spray 00 nostril 2 Med ical (two) Branch times daily. triamcinolo 2021-0 Yes [id number] 1{spray Use 1 [facility] 55 mcg 3-15 } [place] [facility] nasal 00:00: each [place] inhaler 00 nostril 2 [facility] (two) Branch times daily. ipratropium 2021-0 Yes [id number] 1{spray Use 1 [facility] 42 mcg 3-15 1 } [place] [facility] (0.06 %) 00:00: each [place] nasal spray 00 nostril 2 Med ical (two) Branch times daily. triamcinolo 2021-0 Yes [id number] 1{spray Use 1 [facility] 55 mcg 3-15 } [place] [facility] nasal 00:00: each [place] inhaler 00 nostril 2 Medical (two) Branch times daily. ipratropium 2021-0 Yes [id number] 1{spray Use 1 [facility] 42 mcg 3-15 1 } [place] [facility] (0.06 %) 00:00: each [place] nasal spray 00 nostril 2 Med ical (two) Branch times daily. triamcinolo 2021-0 Yes [id number] 1{spray Use 1 [facility] 55 mcg 3-15 } [place] [facility] nasal 00:00: each [place] inhaler 00 nostril 2 [facility] (two) Branch times daily. ipratropium 2021-0 Yes [id number] 1{spray Use 1 [facility] 42 mcg 3-15 1 } [place] [facility] (0.06 %) 00:00: each [place] nasal spray 00 nostril 2 Med ical (two) Branch times daily. triamcinolo 2021-0 Yes [id number] 1{spray Use 1 [facility] 55 mcg 3-15 } [place] [facility] nasal 00:00: each [place] inhaler 00 nostril 2 [facility] (two) Branch times daily. ipratropium 2021-0 Yes [id number] 1{spray Use 1 [facility] 42 mcg 3-15 1 } [place] [facility] (0.06 %) 00:00: each [place] nasal spray 00 nostril 2 Med ical (two) Branch times daily. triamcinolo 2021-0 Yes [id number] 1{spray Use 1 [facility] 55 mcg 3-15 } [place] [facility] nasal 00:00: each [place] inhaler 00 nostril 2 [facility] (two) Branch times daily. ipratropium 2021-0 Yes [id number] 1{spray Use 1 [facility] 42 mcg 3-15 1 } [place] [facility] (0.06 %) 00:00: each [place] nasal spray 00 nostril 2 Med ical (two) Branch times daily. triamcinolo 2021-0 Yes [id number] 1{spray Use 1 [facility] 55 mcg 3-15 } [place] [facility] nasal 00:00: each [place] inhaler 00 nostril 2 [facility] (two) Branch times daily. ipratropium 2021-0 Yes [id number] 1{spray Use 1 [facility] 42 mcg 3-15 1 } [place] [facility] (0.06 %) 00:00: each [place] nasal spray 00 nostril 2 Med ical (two) Branch times daily. triamcinolo 2021-0 Yes [id number] 1{spray Use 1 [facility] 55 mcg 3-15 } [place] [facility] nasal 00:00: each [place] inhaler 00 nostril 2 [facility] (two) Branch times daily. ipratropium 2021-0 Yes [id number] 1{spray Use 1 [facility] 42 mcg 3-15 1 } [place] [facility] (0.06 %) 00:00: each [place] nasal spray 00 nostril 2 Med ical (two) Branch times daily. triamcinolo 2021-0 Yes [id number] 1{spray Use 1 [facility] 55 mcg 3-15 } [place] [facility] nasal 00:00: each [place] inhaler 00 nostril 2 [facility] (two) Branch times daily. ipratropium 2021-0 Yes [id number] 1{spray Use 1 [facility] 42 mcg 3-15 1 } [place] [facility] (0.06 %) 00:00: each [place] nasal spray 00 nostril 2 Med ical (two) Branch times daily. triamcinolo 2021-0 Yes [id number] 1{spray Use 1 [facility] 55 mcg 3-15 } [place] [facility] nasal 00:00: each [place] inhaler 00 nostril 2 [facility] (two) Branch times daily. ipratropium 2021-0 Yes [id number] 1{spray Use 1 [facility] 42 mcg 3-15 1 } [place] [facility] (0.06 %) 00:00: each [place] nasal spray 00 nostril 2 Med ical (two) Branch times daily. triamcinolo 2021-0 Yes [id number] 1{spray Use 1 [facility] 55 mcg 3-15 } [place] [facility] nasal 00:00: each [place] inhaler 00 nostril 2 [facility] (two) Branch times daily. ipratropium 2021-0 Yes [id number] 1{spray Use 1 [facility] 42 mcg 3-15 1 } [place] [facility] (0.06 %) 00:00: each [place] nasal spray 00 nostril 2 Med ical (two) Branch times daily. triamcinolo 2021-0 Yes [id number] 1{spray Use 1 [facility] 55 mcg 3-15 } [place] [facility] nasal 00:00: each [place] inhaler 00 nostril 2 [facility] (two) Branch times daily. ipratropium 2-0 Yes [id number] 1{spray Use 1 [facility] 42 mcg 3-15 1 } [place] [facility] (0.06 %) 00:00: each [place] nasal spray 00 nostril 2 Med ical (two) Branch times daily. triamcinolo 2021-0 Yes [id number] 1{spray Use 1 [facility] 55 mcg 3-15 } [place] [facility] nasal 00:00: each [place] inhaler 00 nostril 2 [facility] (two) Branch times daily. ipratropium 2021-0 Yes [id number] 1{spray Use 1 [facility] 42 mcg 3-15 1 } [place] [facility] (0.06 %) 00:00: each [place] nasal spray 00 nostril 2 Med ical (two) Branch times daily. triamcinolo 2021-0 Yes [id number] 1{spray Use 1 [facility] 55 mcg 3-15 } [place] [facility] nasal 00:00: each [place] inhaler 00 nostril 2 [facility] (two) Branch times daily. ipratropium 2021-0 Yes [id number] 1{spray Use 1 [facility] 42 mcg 3-15 1 } [place] [facility] (0.06 %) 00:00: each [place] nasal spray 00 nostril 2 Med ical (two) Branch times daily. triamcinolo 2021-0 Yes [id number] 1{spray Use 1 [facility] 55 mcg 3-15 } [place] [facility] nasal 00:00: each [place] inhaler 00 nostril 2 [facility] (two) Branch times daily. ipratropium 2021-0 Yes [id number] 1{spray Use 1 [facility] 42 mcg 3-15 1 } [place] [facility] (0.06 %) 00:00: each [place] nasal spray 00 nostril 2 Med ical (two) Branch times daily. triamcinolo 2021-0 Yes [id number] 1{spray Use 1 [facility] 55 mcg 3-15 } [place] [facility] nasal 00:00: each [place] inhaler 00 nostril 2 [facility] (two) Branch times daily. ipratropium 2021-0 Yes [id number] 1{spray Use 1 [facility] 42 mcg 3-15 1 } [place] [facility] (0.06 %) 00:00: each [place] nasal spray 00 nostril 2 Med ical (two) Branch times daily. triamcinolo 2021-0 Yes [id number] 1{spray Use 1 [facility] 55 mcg 3-15 } [place] [facility] nasal 00:00: each [place] inhaler 00 nostril 2 [facility] (two) Branch times daily. ipratropium 2021-0 Yes [id number] 1{spray Use 1 [facility] 42 mcg 3-15 1 } [place] [facility] (0.06 %) 00:00: each [place] nasal spray 00 nostril 2 Med ical (two) Branch times daily. triamcinolo 2021-0 Yes [id number] 1{spray Use 1 [facility] 55 mcg 3-15 } [place] [facility] nasal 00:00: each [place] inhaler 00 nostril 2 [facility] (two) Branch times daily. ipratropium 2021-0 Yes [id number] 1{spray Use 1 [facility] 42 mcg 3-15 1 } [place] [facility] (0.06 %) 00:00: each [place] nasal spray 00 nostril 2 Med ical (two) Branch times daily. triamcinolo 2021-0 Yes [id number] 1{spray Use 1 [facility] 55 mcg 3-15 } [place] [facility] nasal 00:00: each [place] inhaler 00 nostril 2 [facility] (two) Branch times daily. ipratropium 2021-0 Yes [id number] 1{spray Use 1 [facility] 42 mcg 3-15 1 } [place] [facility] (0.06 %) 00:00: each [place] nasal spray 00 nostril 2 Med ical (two) Branch times daily. triamcinolo 2021-0 Yes [id number] 1{spray Use 1 [facility] 55 mcg 3-15 } [place] [facility] nasal 00:00: each [place] inhaler 00 nostril 2 [facility] (two) Branch times daily. ipratropium 2021-0 Yes [id number] 1{spray Use 1 [facility] 42 mcg 3-15 1 } [place] [facility] (0.06 %) 00:00: each [place] nasal spray 00 nostril 2 Med ical (two) Branch times daily. triamcinolo 2021-0 Yes [id number] 1{spray Use 1 [facility] 55 mcg 3-15 } [place] [facility] nasal 00:00: each [place] inhaler 00 nostril 2 Medical (two) Branch times daily. ipratropium 2021-0 Yes [id number] 1{spray Use 1 [facility] 42 mcg 3-15 1 } [place] [facility] (0.06 %) 00:00: each [place] nasal spray 00 nostril 2 Med ical (two) Branch times daily. triamcinolo 2021-0 Yes [id number] 1{spray Use 1 [facility] 55 mcg 3-15 } [place] [facility] nasal 00:00: each [place] inhaler 00 nostril 2 [facility] (two) Branch times daily. ipratropium 2021-0 Yes [id number] 1{spray Use 1 [facility] 42 mcg 3-15 1 } [place] [facility] (0.06 %) 00:00: each [place] nasal spray 00 nostril 2 Med ical (two) Branch times daily. triamcinolo 2021-0 Yes [id number] 1{spray Use 1 [facility] 55 mcg 3-15 } [place] [facility] nasal 00:00: each [place] inhaler 00 nostril 2 Medical (two) Branch times daily. ipratropium 2021-0 Yes [id number] 1{spray Use 1 [facility] 42 mcg 3-15 1 } [place] [facility] (0.06 %) 00:00: each [place] nasal spray 00 nostril 2 Med ical (two) Branch times daily. triamcinolo 2021-0 Yes [id number] 1{spray Use 1 [facility] 55 mcg 3-15 } [place] [facility] nasal 00:00: each [place] inhaler 00 nostril 2 [facility] (two) Branch times daily. ipratropium 2021-0 Yes [id number] 1{spray Use 1 [facility] 42 mcg 3-15 1 } [place] [facility] (0.06 %) 00:00: each [place] nasal spray 00 nostril 2 Med ical (two) Branch times daily. triamcinolo 2021-0 Yes [id number] 1{spray Use 1 [facility] 55 mcg 3-15 } [place] [facility] nasal 00:00: each [place] inhaler 00 nostril 2 Medical (two) Branch times daily. ipratropium 2021-0 Yes [id number] 1{spray Use 1 [facility] 42 mcg 3-15 1 } [place] [facility] (0.06 %) 00:00: each [place] nasal spray 00 nostril 2 Med ical (two) Branch times daily. triamcinolo 2021-0 Yes [id number] 1{spray Use 1 [facility] 55 mcg 3-15 } [place] [facility] nasal 00:00: each [place] inhaler 00 nostril 2 [facility] (two) Branch times daily. ipratropium 2021-0 Yes [id number] 1{spray Use 1 [facility] 42 mcg 3-15 1 } [place] [facility] (0.06 %) 00:00: each [place] nasal spray 00 nostril 2 Med ical (two) Branch times daily. triamcinolo 2021-0 Yes [id number] 1{spray Use 1 [facility] 55 mcg 3-15 } [place] [facility] nasal 00:00: each [place] inhaler 00 nostril 2 [facility] (two) Branch times daily. ipratropium 2021-0 Yes [id number] 1{spray Use 1 [facility] 42 mcg 3-15 1 } [place] [facility] (0.06 %) 00:00: each [place] nasal spray 00 nostril 2 Med ical (two) Branch times daily. triamcinolo 2021-0 Yes [id number] 1{spray Use 1 [facility] 55 mcg 3-15 } [place] [facility] nasal 00:00: each [place] inhaler 00 nostril 2 Medical (two) Branch times daily. ipratropium 2021-0 Yes [id number] 1{spray Use 1 [facility] 42 mcg 3-15 1 } [place] [facility] (0.06 %) 00:00: each [place] nasal spray 00 nostril 2 Med ical (two) Branch times daily. triamcinolo 2021-0 Yes [id number] 1{spray Use 1 [facility] 55 mcg 3-15 } [place] [facility] nasal 00:00: each [place] inhaler 00 nostril 2 Medical (two) Branch times daily. ipratropium 2021-0 Yes [id number] 1{spray Use 1 [facility] 42 mcg 3-15 1 } [place] [facility] (0.06 %) 00:00: each [place] nasal spray 00 nostril 2 Med ical (two) Branch times daily. triamcinolo 2021-0 Yes [id number] 1{spray Use 1 [facility] 55 mcg 3-15 } [place] [facility] nasal 00:00: each [place] inhaler 00 nostril 2 Medical (two) Branch times daily. ipratropium 2021-0 Yes [id number] 1{spray Use 1 [facility] 42 mcg 3-15 1 } [place] [facility] (0.06 %) 00:00: each [place] nasal spray 00 nostril 2 Med ical (two) Branch times daily. triamcinolo 2021-0 Yes [id number] 1{spray Use 1 [facility] 55 mcg 3-15 } [place] [facility] nasal 00:00: each [place] inhaler 00 nostril 2 Medical (two) Branch times daily. ipratropium 2021-0 Yes [id number] 1{spray Use 1 [facility] 42 mcg 3-15 1 } [place] [facility] (0.06 %) 00:00: each [place] nasal spray 00 nostril 2 Med ical (two) Branch times daily. triamcinolo 2021-0 Yes [id number] 1{spray Use 1 [facility] 55 mcg 3-15 } [place] [facility] nasal 00:00: each [place] inhaler 00 nostril 2 Medical (two) Branch times daily. ipratropium 2021-0 Yes [id number] 1{spray Use 1 [facility] 42 mcg 3-15 1 } [place] [facility] (0.06 %) 00:00: each [place] nasal spray 00 nostril 2 Med ical (two) Branch times daily. triamcinolo 2021-0 Yes [id number] 1{spray Use 1 [facility] 55 mcg 3-15 } [place] [facility] nasal 00:00: each [place] inhaler 00 nostril 2 Medical (two) Branch times daily. ipratropium 2021-0 Yes [id number] 1{spray Use 1 [facility] 42 mcg 3-15 1 } [place] [facility] (0.06 %) 00:00: each [place] nasal spray 00 nostril 2 Med ical (two) Branch times daily. triamcinolo 2021-0 Yes [id number] 1{spray Use 1 [facility] 55 mcg 3-15 } [place] [facility] nasal 00:00: each [place] inhaler 00 nostril 2 Medical (two) Branch times daily. ipratropium 2-0 Yes [id number] 1{spray Use 1 [facility] 42 mcg 3-15 1 } [place] [facility] (0.06 %) 00:00: each [place] nasal spray 00 nostril 2 Med ical (two) Branch times daily. triamcinolo 2021-0 Yes [id number] 1{spray Use 1 [facility] 55 mcg 3-15 } [place] [facility] nasal 00:00: each [place] inhaler 00 nostril 2 Medical (two) Branch times daily. ipratropium 2-0 Yes [id number] 1{spray Use 1 [facility] 42 mcg 3-15 1 } [place] [facility] (0.06 %) 00:00: each [place] nasal spray 00 nostril 2 Med ical (two) Branch times daily. triamcinolo 2021-0 Yes [id number] 1{spray Use 1 [facility] 55 mcg 3-15 } [place] [facility] nasal 00:00: each [place] inhaler 00 nostril 2 Medical (two) Branch times daily. ipratropium 2021-0 Yes [id number] 1{spray Use 1 [facility] 42 mcg 3-15 1 } [place] [facility] (0.06 %) 00:00: each [place] nasal spray 00 nostril 2 Med ical (two) Branch times daily. triamcinolo 2021-0 Yes [id number] 1{spray Use 1 [facility] 55 mcg 3-15 } [place] [facility] nasal 00:00: each [place] inhaler 00 nostril 2 Medical (two) Branch times daily. ipratropium 2021-0 Yes [id number] 1{spray Use 1 [facility] 42 mcg 3-15 1 } [place] [facility] (0.06 %) 00:00: each [place] nasal spray 00 nostril 2 Med ical (two) Branch times daily. triamcinolo 2021-0 Yes [id number] 1{spray Use 1 [facility] 55 mcg 3-15 } [place] [facility] nasal 00:00: each [place] inhaler 00 nostril 2 Medical (two) Branch times daily. ipratropium 2-0 Yes [id number] 1{spray Use 1 [facility] 42 mcg 3-15 1 } [place] [facility] (0.06 %) 00:00: each [place] nasal spray 00 nostril 2 Med ical (two) Branch times daily. triamcinolo 2021-0 Yes [id number] 1{spray Use 1 [facility] 55 mcg 3-15 } [facility] nasal 00:00: each [place] inhaler 00 nostril 2 Medical (two) Branch times daily. ipratropium 2-0 Yes [id number] 1{spray Use 1 [facility] 42 mcg 3-15 1 } [place] [facility] (0.06 %) 00:00: each [place] nasal spray 00 nostril 2 Med ical (two) Branch times daily. triamcinolo Yes [id number] 1{spray Use 1 [facility] 55 mcg 3-15 } [place] [facility] nasal 00:00: each [place] inhaler 00 nostril 2 Medical (two) Branch times daily. ipratropium Yes [id number] 1{spray Use 1 [facility] 42 mcg 3-15 1 } [facility] (0.06 %) 00:00: each [place] nasal spray 00 nostril 2 Med ical (two) Branch times daily. triamcinolo Yes [id number] 1{spray Use 1 [facility] 55 mcg 3-15 } [place] [facility] nasal 00:00: each [place] inhaler 00 nostril 2 Medical (two) Branch times daily. triamcinolo 2022- No [id number] 1{spray Use 1 [facility] 55 mcg 3-15 07-18 } [place] [facility] o f nasal 00:00: 00:00 each [place] inhaler 00 :00 nostril 2 Medical (two) Branch times daily. triamcinolo 2022- No [id number] 1{spray Use 1 [facility] 55 mcg 3-15 07-18 } [place] [facility] f nasal 00:00: 00:00 each [place] inhaler 00 :00 nostril 2 Medical (two) Branch times daily. ipratropium 2022- No [id number] 1{spray Use 1 [facility] 42 mcg 3-15 07-11 1 } [place] [facility] (0.06 %) 00:00: 00:00 each [place] nasal spray 00 :00 nostril 2 Med ical (two) Branch times daily. ipratropium 2022- No [id number] 1{spray Use 1 [facility] 42 mcg 3-15 07-11 1 } [place] [facility] (0.06 %) 00:00: 00:00 each [place] nasal spray 00 :00 nostril 2 Med ical (two) Branch times daily. albuterol Yes [id number] 2.5mg Inhale 3 [facility] 2.5 mg /3 3-10 mL every 2 ity of mL (0.083 00:00: (two) [place] %) 00 hours as Medical nebulizer needed for Bran ch solution Shortness of Breath or Wheezing. budesonide 2-0 Yes [id number] .5mg Inhale 2 [facility] 0.5 mg/2 mL 3-10 mL 2 (two) it y of nebulizer 00:00: times [place] solution 00 daily. [facility] albuterol 2-0 Yes [id number] 2.5mg Inhale 3 [facility] 2.5 mg /3 3-10 mL every 2 ity of mL (0.083 00:00: (two) [place] %) 00 hours as Medical nebulizer needed for Bran ch solution Shortness of Breath or Wheezing. budesonide 2-0 Yes [id number] .5mg Inhale 2 [facility] 0.5 mg/2 mL 3-10 mL 2 (two) it y of nebulizer 00:00: times [place] solution 00 daily. [facility] albuterol 2021-0 Yes [id number] 2.5mg Inhale 3 [facility] 2.5 mg /3 3-10 mL every 2 ity of mL (0.083 00:00: (two) [place] %) 00 hours as Medical nebulizer needed for Bran ch solution Shortness of Breath or Wheezing. budesonide 2021-0 Yes [id number] .5mg Inhale 2 [facility] 0.5 mg/2 mL 3-10 mL 2 (two) it y of nebulizer 00:00: times [place] solution 00 daily. [facility] albuterol 2-0 Yes [id number] 2.5mg Inhale 3 [facility] 2.5 mg /3 3-10 mL every 2 ity of mL (0.083 00:00: (two) [place] %) 00 hours as Medical nebulizer needed for Bran ch solution Shortness of Breath or Wheezing. budesonide 2-0 Yes [id number] .5mg Inhale 2 [facility] 0.5 mg/2 mL 3-10 mL 2 (two) it y of nebulizer 00:00: times [place] solution 00 daily. [facility] albuterol 2022-0 Yes [id number] 2.5mg Inhale 3 [facility] 2.5 mg /3 3-10 mL every 2 ity of mL (0.083 00:00: (two) [place] %) 00 hours as Medical nebulizer needed for Bran ch solution Shortness of Breath or Wheezing. budesonide 2-0 Yes [id number] .5mg Inhale 2 [facility] 0.5 mg/2 mL 3-10 mL 2 (two) it y of nebulizer 00:00: times [place] solution 00 daily. [facility] albuterol 2021-0 Yes [id number] 2.5mg Inhale 3 [facility] 2.5 mg /3 3-10 mL every 2 ity of mL (0.083 00:00: (two) [place] %) 00 hours as Medical nebulizer needed for Bran ch solution Shortness of Breath or Wheezing. budesonide 2021-0 Yes [id number] .5mg Inhale 2 [facility] 0.5 mg/2 mL 3-10 mL 2 (two) it y of nebulizer 00:00: times [place] solution 00 daily. [facility] albuterol 2021-0 Yes [id number] 2.5mg Inhale 3 [facility] 2.5 mg /3 3-10 mL every 2 ity of mL (0.083 00:00: (two) [place] %) 00 hours as Medical nebulizer needed for Bran ch solution Shortness of Breath or Wheezing. budesonide 2021-0 Yes [id number] .5mg Inhale 2 [facility] 0.5 mg/2 mL 3-10 mL 2 (two) it y of nebulizer 00:00: times [place] solution 00 daily. [facility] albuterol 2021-0 Yes [id number] 2.5mg Inhale 3 [facility] 2.5 mg /3 3-10 mL every 2 ity of mL (0.083 00:00: (two) [place] %) 00 hours as Medical nebulizer needed for Bran ch solution Shortness of Breath or Wheezing. budesonide 2021-0 Yes [id number] .5mg Inhale 2 [facility] 0.5 mg/2 mL 3-10 mL 2 (two) it y of nebulizer 00:00: times [place] solution 00 daily. [facility] albuterol 2021-0 Yes [id number] 2.5mg Inhale 3 [facility] 2.5 mg /3 3-10 mL every 2 ity of mL (0.083 00:00: (two) [place] %) 00 hours as Medical nebulizer needed for Bran ch solution Shortness of Breath or Wheezing. budesonide 2021-0 Yes [id number] .5mg Inhale 2 [facility] 0.5 mg/2 mL 3-10 mL 2 (two) it y of nebulizer 00:00: times [place] solution 00 daily. [facility] albuterol 2021-0 Yes [id number] 2.5mg Inhale 3 [facility] 2.5 mg /3 3-10 mL every 2 ity of mL (0.083 00:00: (two) [place] %) 00 hours as Medical nebulizer needed for Bran ch solution Shortness of Breath or Wheezing. budesonide 2021-0 Yes [id number] .5mg Inhale 2 [facility] 0.5 mg/2 mL 3-10 mL 2 (two) it y of nebulizer 00:00: times [place] solution 00 daily. [facility] albuterol 2021-0 Yes [id number] 2.5mg Inhale 3 [facility] 2.5 mg /3 3-10 mL every 2 ity of mL (0.083 00:00: (two) [place] %) 00 hours as Medical nebulizer needed for Bran ch solution Shortness of Breath or Wheezing. budesonide 2021-0 Yes [id number] .5mg Inhale 2 [facility] 0.5 mg/2 mL 3-10 mL 2 (two) it y of nebulizer 00:00: times [place] solution 00 daily. [facility] albuterol 2021-0 Yes [id number] 2.5mg Inhale 3 [facility] 2.5 mg /3 3-10 mL every 2 ity of mL (0.083 00:00: (two) [place] %) 00 hours as Medical nebulizer needed for Bran ch solution Shortness of Breath or Wheezing. budesonide 2021-0 Yes [id number] .5mg Inhale 2 [facility] 0.5 mg/2 mL 3-10 mL 2 (two) it y of nebulizer 00:00: times [place] solution 00 daily. [facility] albuterol 2021-0 Yes [id number] 2.5mg Inhale 3 [facility] 2.5 mg /3 3-10 mL every 2 ity of mL (0.083 00:00: (two) [place] %) 00 hours as Medical nebulizer needed for Bran ch solution Shortness of Breath or Wheezing. budesonide 2021-0 Yes [id number] .5mg Inhale 2 [facility] 0.5 mg/2 mL 3-10 mL 2 (two) it y of nebulizer 00:00: times [place] solution 00 daily. [facility] albuterol 2021-0 Yes [id number] 2.5mg Inhale 3 [facility] 2.5 mg /3 3-10 mL every 2 ity of mL (0.083 00:00: (two) [place] %) 00 hours as Medical nebulizer needed for Bran ch solution Shortness of Breath or Wheezing. budesonide 2-0 Yes [id number] .5mg Inhale 2 [facility] 0.5 mg/2 mL 3-10 mL 2 (two) it y of nebulizer 00:00: times [place] solution 00 daily. [facility] budesonide 2-0 Yes [id number] .5mg Inhale 2 [facility] 0.5 mg/2 mL 3-10 mL 2 (two) it y of nebulizer 00:00: times [place] solution 00 daily. [facility] budesonide 2-0 Yes [id number] .5mg Inhale 2 [facility] 0.5 mg/2 mL 3-10 mL 2 (two) it y of nebulizer 00:00: times [place] solution 00 daily. [facility] budesonide 2-0 Yes [id number] .5mg Inhale 2 [facility] 0.5 mg/2 mL 3-10 mL 2 (two) it y of nebulizer 00:00: times [place] solution 00 daily. [facility] budesonide 2-0 Yes [id number] .5mg Inhale 2 [facility] 0.5 mg/2 mL 3-10 mL 2 (two) it y of nebulizer 00:00: times [place] solution 00 daily. [facility] budesonide 2-0 Yes [id number] .5mg Inhale 2 [facility] 0.5 mg/2 mL 3-10 mL 2 (two) it y of nebulizer 00:00: times [place] solution 00 daily. [facility] budesonide 2-0 Yes [id number] .5mg Inhale 2 [facility] 0.5 mg/2 mL 3-10 mL 2 (two) it y of nebulizer 00:00: times [place] solution 00 daily. [facility] budesonide 2-0 Yes [id number] .5mg Inhale 2 [facility] 0.5 mg/2 mL 3-10 mL 2 (two) it y of nebulizer 00:00: times [place] solution 00 daily. [facility] budesonide 2-0 Yes [id number] .5mg Inhale 2 [facility] 0.5 mg/2 mL 3-10 mL 2 (two) it y of nebulizer 00:00: times [place] solution 00 daily. [facility] budesonide 2022-0 Yes [id number] .5mg Inhale 2 [facility] 0.5 mg/2 mL 3-10 mL 2 (two) it y of nebulizer 00:00: times [place] solution 00 daily. [facility] budesonide 2022-0 Yes [id number] .5mg Inhale 2 [facility] 0.5 mg/2 mL 3-10 mL 2 (two) it y of nebulizer 00:00: times [place] solution 00 daily. [facility] budesonide 2022-0 Yes [id number] .5mg Inhale 2 [facility] 0.5 mg/2 mL 3-10 mL 2 (two) it y of nebulizer 00:00: times [place] solution 00 daily. [facility] budesonide 2022-0 Yes [id number] .5mg Inhale 2 [facility] 0.5 mg/2 mL 3-10 mL 2 (two) it y of nebulizer 00:00: times [place] solution 00 daily. [facility] budesonide 2022-0 Yes [id number] .5mg Inhale 2 [facility] 0.5 mg/2 mL 3-10 mL 2 (two) it y of nebulizer 00:00: times [place] solution 00 daily. [facility] budesonide 2022-0 Yes [id number] .5mg Inhale 2 [facility] 0.5 mg/2 mL 3-10 mL 2 (two) it y of nebulizer 00:00: times [place] solution 00 daily. [facility] budesonide 2022-0 Yes [id number] .5mg Inhale 2 [facility] 0.5 mg/2 mL 3-10 mL 2 (two) it y of nebulizer 00:00: times [place] solution 00 daily. [facility] budesonide 2022-0 Yes [id number] .5mg Inhale 2 [facility] 0.5 mg/2 mL 3-10 mL 2 (two) it y of nebulizer 00:00: times [place] solution 00 daily. [facility] budesonide 2022-0 Yes [id number] .5mg Inhale 2 [facility] 0.5 mg/2 mL 3-10 mL 2 (two) it y of nebulizer 00:00: times [place] solution 00 daily. [facility] budesonide 2022-0 Yes [id number] .5mg Inhale 2 [facility] 0.5 mg/2 mL 3-10 mL 2 (two) it y of nebulizer 00:00: times [place] solution 00 daily. [facility] budesonide 2022-0 Yes [id number] .5mg Inhale 2 [facility] 0.5 mg/2 mL 3-10 mL 2 (two) it y of nebulizer 00:00: times [place] solution 00 daily. [facility] budesonide 2022-0 Yes [id number] .5mg Inhale 2 [facility] 0.5 mg/2 mL 3-10 mL 2 (two) it y of nebulizer 00:00: times [place] solution 00 daily. [facility] budesonide 2022-0 Yes [id number] .5mg Inhale 2 [facility] 0.5 mg/2 mL 3-10 mL 2 (two) it y of nebulizer 00:00: times [place] solution 00 daily. [facility] budesonide 2022-0 Yes [id number] .5mg Inhale 2 [facility] 0.5 mg/2 mL 3-10 mL 2 (two) it y of nebulizer 00:00: times [place] solution 00 daily. [facility] budesonide 2022-0 Yes [id number] .5mg Inhale 2 [facility] 0.5 mg/2 mL 3-10 mL 2 (two) it y of nebulizer 00:00: times [place] solution 00 daily. [facility] budesonide 2022-0 Yes [id number] .5mg Inhale 2 [facility] 0.5 mg/2 mL 3-10 mL 2 (two) it y of nebulizer 00:00: times [place] solution 00 daily. [facility] budesonide 2022-0 Yes [id number] .5mg Inhale 2 [facility] 0.5 mg/2 mL 3-10 mL 2 (two) it y of nebulizer 00:00: times [place] solution 00 daily. [facility] budesonide 2022-0 Yes [id number] .5mg Inhale 2 [facility] 0.5 mg/2 mL 3-10 mL 2 (two) it y of nebulizer 00:00: times [place] solution 00 daily. [facility] budesonide 2022-0 Yes [id number] .5mg Inhale 2 [facility] 0.5 mg/2 mL 3-10 mL 2 (two) it y of nebulizer 00:00: times [place] solution 00 daily. [facility] budesonide 2022-0 Yes [id number] .5mg Inhale 2 [facility] 0.5 mg/2 mL 3-10 mL 2 (two) it y of nebulizer 00:00: times [place] solution 00 daily. [facility] budesonide 2-0 Yes [id number] .5mg Inhale 2 [facility] 0.5 mg/2 mL 3-10 mL 2 (two) it y of nebulizer 00:00: times [place] solution 00 daily. [facility] budesonide 2-0 Yes [id number] .5mg Inhale 2 [facility] 0.5 mg/2 mL 3-10 mL 2 (two) it y of nebulizer 00:00: times [place] solution 00 daily. [facility] budesonide 2-0 Yes [id number] .5mg Inhale 2 [facility] 0.5 mg/2 mL 3-10 mL 2 (two) it y of nebulizer 00:00: times [place] solution 00 daily. [facility] budesonide 2021-0 Yes [id number] .5mg Inhale 2 [facility] 0.5 mg/2 mL 3-10 mL 2 (two) it y of nebulizer 00:00: times [place] solution 00 daily. [facility] budesonide 2021-0 Yes [id number] .5mg Inhale 2 [facility] 0.5 mg/2 mL 3-10 mL 2 (two) it y of nebulizer 00:00: times [place] solution 00 daily. [facility] budesonide 2021-0 3- No [id number] .5mg Inhale 2 [facility] 0.5 mg/2 mL 3-10 01-05 mL 2 (two) i ty of nebulizer 00:00: 00:00 times [place] solution 00 :00 daily. [facility] budesonide 2021-0 2023- No [id number] .5mg Inhale 2 [facility] 0.5 mg/2 mL 3-10 01-05 mL 2 (two) i ty of nebulizer 00:00: 00:00 times [place] solution 00 :00 daily. [facility] budesonide 2-0 3- No [id number] .5mg Inhale 2 [facility] 0.5 mg/2 mL 3-10 01-05 mL 2 (two) i ty of nebulizer 00:00: 00:00 times [place] solution 00 :00 daily. [facility] budesonide 2-0 3- No [id number] .5mg Inhale 2 [facility] 0.5 mg/2 mL 3-10 01-05 mL 2 (two) i ty of nebulizer 00:00: 00:00 times [place] solution 00 :00 daily. [facility] albuterol 2- No [id number] 2.5mg Inhale 3 [facility] 2.5 mg /3 3-10 09-29 mL every 2 ity of mL (0.083 00:00: 00:00 (two) [place] %) 00 :00 hours as Medical nebulizer needed for [facility] solution Shortness of Breath or Wheezing. albuterol 2021- No [id number] 2.5mg Inhale 3 [facility] 2.5 mg /3 3-10 09-29 mL every 2 ity of mL (0.083 00:00: 00:00 (two) [place] %) 00 :00 hours as Medical nebulizer needed for [facility] solution Shortness of Breath or Wheezing. albuterol 2021- No [id number] 2.5mg Inhale 3 [facility] 2.5 mg /3 3-10 09-29 mL every 2 ity of mL (0.083 00:00: 00:00 (two) [place] %) 00 :00 hours as Medical nebulizer needed for [facility] solution Shortness of Breath or Wheezing. Nebulizer Yes [id number] Provide [facility] Accessories 3-04 nebulizer ity of Kit 00:00: kit and [place] 00 appropriat [facility] accessorie s. Nebulizer Yes [id number] Provide [facility] Accessories 3-04 nebulizer ity of Kit 00:00: kit and [place] 00 appropriat [facility] accessorie s. Nebulizer 0 Yes [id number] Provide [facility] Accessories 3-04 nebulizer ity of Kit 00:00: kit and appropriat [facility] accessorie s. Nebulizer 0 Yes [id number] Provide [facility] Accessories 3-04 nebulizer ity of Kit 00:00: kit and [place] appropriat [facility] accessorie s. Nebulizer 0 Yes [id number] Provide [facility] Accessories 3-04 nebulizer ity of Kit 00:00: kit and [place] 00 appropriat [facility] accessorie s. Nebulizer 0 Yes [id number] Provide [facility] Accessories 3-04 nebulizer ity of Kit 00:00: kit and [place] appropriat [facility] accessorie s. Nebulizer 0 Yes [id number] Provide [facility] Accessories 3-04 nebulizer ity of Kit 00:00: kit and [place] 00 appropriat [facility] accessorie s. Nebulizer 2021-0 Yes [id number] Provide [facility] Accessories 3-04 nebulizer ity of Kit 00:00: kit and [place] 00 appropriat [facility] accessorie s. Nebulizer 2021-0 Yes [id number] Provide [facility] Accessories 3-04 nebulizer ity of Kit 00:00: kit and [place] 00 appropriat [facility] accessorie s. Nebulizer 2021-0 Yes [id number] Provide [facility] Accessories 3-04 nebulizer ity of Kit 00:00: kit and [place] 00 appropriat [facility] accessorie s. Nebulizer 2021-0 Yes [id number] Provide [facility] Accessories 3-04 nebulizer ity of Kit 00:00: kit and [place] 00 appropriat [facility] accessorie s. Nebulizer 2021-0 Yes [id number] Provide [facility] Accessories 3-04 nebulizer ity of Kit 00:00: kit and [place] 00 appropriat [facility] accessorie s. Nebulizer 2021-0 Yes [id number] Provide [facility] Accessories 3-04 nebulizer ity of Kit 00:00: kit and [place] 00 appropriat [facility] accessorie s. Nebulizer 2021-0 Yes [id number] Provide [facility] Accessories 3-04 nebulizer ity of Kit 00:00: kit and [place] 00 appropriat [facility] accessorie s. Nebulizer 2021-0 Yes [id number] Provide [facility] Accessories 3-04 nebulizer ity of Kit 00:00: kit and [place] 00 appropriat [facility] accessorie s. Nebulizer 2021-0 Yes [id number] Provide [facility] Accessories 3-04 nebulizer ity of Kit 00:00: kit and [place] 00 appropriat [facility] accessorie s. Nebulizer 2021-0 Yes [id number] Provide [facility] Accessories 3-04 nebulizer ity of Kit 00:00: kit and [place] 00 appropriat [facility] accessorie s. Nebulizer 2021-0 Yes [id number] Provide [facility] Accessories 3-04 nebulizer ity of Kit 00:00: kit and [place] 00 appropriat [facility] accessorie s. Nebulizer 2021-0 Yes [id number] Provide [facility] Accessories 3-04 nebulizer ity of Kit 00:00: kit and [place] 00 appropriat [facility] accessorie s. Nebulizer 2021-0 Yes [id number] Provide [facility] Accessories 3-04 nebulizer ity of Kit 00:00: kit and 00 appropriat [facility] accessorie s. Nebulizer 2021-0 Yes [id number] Provide [facility] Accessories 3-04 nebulizer ity of Kit 00:00: kit and 00 appropriat [facility] accessorie s. Nebulizer 2021-0 Yes [id number] Provide [facility] Accessories 3-04 nebulizer ity of Kit 00:00: kit and 00 appropriat [facility] accessorie s. Nebulizer 2021-0 Yes [id number] Provide [facility] Accessories 3-04 nebulizer ity of Kit 00:00: kit and appropriat [facility] accessorie s. Nebulizer 2021-0 Yes [id number] Provide [facility] Accessories 3-04 nebulizer ity of Kit 00:00: kit and appropriat [facility] accessorie s. Nebulizer 2021-0 Yes [id number] Provide [facility] Accessories 3-04 nebulizer ity of Kit 00:00: kit and appropriat [facility] accessorie s. Nebulizer 2021-0 Yes [id number] Provide [facility] Accessories 3-04 nebulizer ity of Kit 00:00: kit and appropriat [facility] accessorie s. Nebulizer 2021-0 Yes [id number] Provide [facility] Accessories 3-04 nebulizer ity of Kit 00:00: kit and appropriat [facility] accessorie s. Nebulizer 2021-0 Yes [id number] Provide [facility] Accessories 3-04 nebulizer ity of Kit 00:00: kit and appropriat [facility] accessorie s. Nebulizer 2021-0 Yes [id number] Provide [facility] Accessories 3-04 nebulizer ity of Kit 00:00: kit and appropriat [facility] accessorie s. Nebulizer 2021-0 Yes [id number] Provide [facility] Accessories 3-04 nebulizer ity of Kit 00:00: kit and appropriat [facility] accessorie s. Nebulizer 2021-0 Yes [id number] Provide [facility] Accessories 3-04 nebulizer ity of Kit 00:00: kit and appropriat [facility] accessorie s. Nebulizer 0 Yes [id number] Provide [facility] Accessories 3-04 nebulizer ity of Kit 00:00: kit and [place] 00 appropriat [facility] accessorie s. Nebulizer 2021-0 Yes [id number] Provide [facility] Accessories 3-04 nebulizer ity of Kit 00:00: kit and [place] 00 appropriat [facility] accessorie s. Nebulizer 2021-0 Yes [id number] Provide [facility] Accessories 3-04 nebulizer ity of Kit 00:00: kit and [place] 00 appropriat [facility] accessorie s. Nebulizer 2021-0 Yes [id number] Provide [facility] Accessories 3-04 nebulizer ity of Kit 00:00: kit and [place] 00 appropriat [facility] accessorie s. Nebulizer 2021-0 Yes [id number] Provide [facility] Accessories 3-04 nebulizer ity of Kit 00:00: kit and [place] 00 appropriat [facility] accessorie s. Nebulizer 2021-0 Yes [id number] Provide [facility] Accessories 3-04 nebulizer ity of Kit 00:00: kit and [place] 00 appropriat [facility] accessorie s. Nebulizer 2021-0 Yes [id number] Provide [facility] Accessories 3-04 nebulizer ity of Kit 00:00: kit and [place] 00 appropriat [facility] accessorie s. Nebulizer 2021-0 Yes [id number] Provide [facility] Accessories 3-04 nebulizer ity of Kit 00:00: kit and [place] 00 appropriat [facility] accessorie s. Nebulizer 2021-0 Yes [id number] Provide [facility] Accessories 3-04 nebulizer ity of Kit 00:00: kit and [place] 00 appropriat [facility] accessorie s. Nebulizer 2021-0 Yes [id number] Provide [facility] Accessories 3-04 nebulizer ity of Kit 00:00: kit and [place] 00 appropriat [facility] accessorie s. Nebulizer 2021-0 Yes [id number] Provide [facility] Accessories 3-04 nebulizer ity of Kit 00:00: kit and [place] 00 appropriat [facility] accessorie s. Nebulizer 2021-0 Yes [id number] Provide [facility] Accessories 3-04 nebulizer ity of Kit 00:00: kit and [place] 00 appropriat [facility] accessorie s. Nebulizer 2022-0 Yes [id number] Provide [facility] Accessories 3-04 nebulizer ity of Kit 00:00: kit and [place] 00 appropriat [facility] accessorie s. Nebulizer 0 Yes [id number] Provide [facility] Accessories 3-04 nebulizer ity of Kit 00:00: kit and [place] 00 appropriat [facility] accessorie s. Nebulizer 0 Yes [id number] Provide [facility] Accessories 3-04 nebulizer ity of Kit 00:00: kit and 00 appropriat [facility] accessorie s. Nebulizer 0 Yes [id number] Provide [facility] Accessories 3-04 nebulizer ity of Kit 00:00: kit and 00 appropriat [facility] accessorie s. Nebulizer 0 Yes [id number] Provide [facility] Accessories 3-04 nebulizer ity of Kit 00:00: kit and [place] 00 appropriat [facility] accessorie s. Nebulizer 0 Yes [id number] Provide [facility] Accessories 3-04 nebulizer ity of Kit 00:00: kit and 00 appropriat [facility] accessorie s. Nebulizer 0 Yes [id number] Provide [facility] Accessories 3-04 nebulizer ity of Kit 00:00: kit and 00 appropriat [facility] accessorie s. Nebulizer 0 Yes [id number] Provide [facility] Accessories 3-04 nebulizer ity of Kit 00:00: kit and [place] 00 appropriat [facility] accessorie s. Nebulizer 0 Yes [id number] Provide [facility] Accessories 3-04 nebulizer ity of Kit 00:00: kit and 00 appropriat [facility] accessorie s. Nebulizer 0 Yes [id number] Provide [facility] Accessories 3-04 nebulizer ity of Kit 00:00: kit and 00 appropriat [facility] accessorie s. Nebulizer 0 Yes [id number] Provide [facility] Accessories 3-04 nebulizer ity of Kit 00:00: kit and [place] 00 appropriat [facility] accessorie s. Nebulizer 0 Yes [id number] Provide [facility] Accessories 3-04 nebulizer ity of Kit 00:00: kit and 00 appropriat [facility] accessorie s. Nebulizer 0 Yes [id number] Provide [facility] Accessories 3-04 nebulizer ity of Kit 00:00: kit and [place] 00 appropriat [facility] accessorie s. Nebulizer 2021-0 Yes [id number] Provide [facility] Accessories 3-04 nebulizer ity of Kit 00:00: kit and [place] 00 appropriat [facility] accessorie s. Nebulizer 2021-0 Yes [id number] Provide [facility] Accessories 3-04 nebulizer ity of Kit 00:00: kit and [place] 00 appropriat [facility] accessorie s. Nebulizer 2021-0 Yes [id number] Provide [facility] Accessories 3-04 nebulizer ity of Kit 00:00: kit and [place] 00 appropriat [facility] accessorie s. Nebulizer 2021-0 Yes [id number] Provide [facility] Accessories 3-04 nebulizer ity of Kit 00:00: kit and [place] 00 appropriat [facility] accessorie s. Nebulizer 2021-0 Yes [id number] Provide [facility] Accessories 3-04 nebulizer ity of Kit 00:00: kit and [place] 00 appropriat [facility] accessorie s. Nebulizer 2021-0 Yes [id number] Provide [facility] Accessories 3-04 nebulizer ity of Kit 00:00: kit and [place] 00 appropriat [facility] accessorie s. Nebulizer 2021-0 Yes [id number] Provide [facility] Accessories 3-04 nebulizer ity of Kit 00:00: kit and [place] 00 appropriat [facility] accessorie s. Nebulizer 2021-0 Yes [id number] Provide [facility] Accessories 3-04 nebulizer ity of Kit 00:00: kit and [place] 00 appropriat [facility] accessorie s. Nebulizer 2021-0 Yes [id number] Provide [facility] Accessories 3-04 nebulizer ity of Kit 00:00: kit and [place] 00 appropriat [facility] accessorie s. Nebulizer 2021-0 Yes [id number] Provide [facility] Accessories 3-04 nebulizer ity of Kit 00:00: kit and [place] 00 appropriat [facility] accessorie s. Nebulizer 2021-0 Yes [id number] Provide [facility] Accessories 3-04 nebulizer ity of Kit 00:00: kit and [place] 00 appropriat [facility] accessorie s. Nebulizer 2021-0 Yes [id number] Provide [facility] Accessories 3-04 nebulizer ity of Kit 00:00: kit and [place] 00 appropriat [facility] accessorie s. Nebulizer 2021-0 Yes [id number] Provide [facility] Accessories 3-04 nebulizer ity of Kit 00:00: kit and [place] 00 appropriat [facility] accessorie s. Nebulizer 2021-0 Yes [id number] Provide [facility] Accessories 3-04 nebulizer ity of Kit 00:00: kit and [place] 00 appropriat [facility] accessorie s. Nebulizer 2021-0 Yes [id number] Provide [facility] Accessories 3-04 nebulizer ity of Kit 00:00: kit and [place] 00 appropriat [facility] accessorie s. Nebulizer 2021-0 Yes [id number] Provide [facility] Accessories 3-04 nebulizer ity of Kit 00:00: kit and [place] 00 appropriat [facility] accessorie s. Nebulizer 2021-0 Yes [id number] Provide [facility] Accessories 3-04 nebulizer ity of Kit 00:00: kit and [place] 00 appropriat [facility] accessorie s. Nebulizer 2021-0 Yes [id number] Provide [facility] Accessories 3-04 nebulizer ity of Kit 00:00: kit and [place] 00 appropriat [facility] accessorie s. Nebulizer 2021-0 Yes [id number] Provide [facility] Accessories 3-04 nebulizer ity of Kit 00:00: kit and [place] 00 appropriat [facility] accessorie s. Nebulizer 2021-0 Yes [id number] Provide [facility] Accessories 3-04 nebulizer ity of Kit 00:00: kit and [place] 00 appropriat [facility] accessorie s. Nebulizer 2021-0 Yes [id number] Provide [facility] Accessories 3-04 nebulizer ity of Kit 00:00: kit and [place] 00 appropriat [facility] accessorie s. Nebulizer 2021-0 Yes [id number] Provide [facility] Accessories 3-04 nebulizer ity of Kit 00:00: kit and [place] 00 appropriat [facility] accessorie s. Nebulizer 2021-0 Yes [id number] Provide [facility] Accessories 3-04 nebulizer ity of Kit 00:00: kit and [place] 00 appropriat [facility] accessorie s. Nebulizer 2021-0 Yes [id number] Provide [facility] Accessories 3-04 nebulizer ity of Kit 00:00: kit and [place] 00 appropriat [facility] accessorie s. Nebulizer 2021-0 Yes [id number] Provide [facility] Accessories 3-04 nebulizer ity of Kit 00:00: kit and 00 appropriat [facility] accessorie s. Nebulizer 2021-0 Yes [id number] Provide [facility] Accessories 3-04 nebulizer ity of Kit 00:00: kit and appropriat [facility] accessorie s. Nebulizer 2021-0 Yes [id number] Provide [facility] Accessories 3-04 nebulizer ity of Kit 00:00: kit and 00 appropriat [facility] accessorie s. Nebulizer 2021-0 Yes [id number] Provide [facility] Accessories 3-04 nebulizer ity of Kit 00:00: kit and appropriat [facility] accessorie s. Nebulizer 2021-0 Yes [id number] Provide [facility] Accessories 3-04 nebulizer ity of Kit 00:00: kit and appropriat [facility] accessorie s. Nebulizer 2021-0 Yes [id number] Provide [facility] Accessories 3-04 nebulizer ity of Kit 00:00: kit and appropriat [facility] accessorie s. Nebulizer 2021-0 Yes [id number] Provide [facility] Accessories 3-04 nebulizer ity of Kit 00:00: kit and appropriat [facility] accessorie s. Nebulizer 2021-0 Yes [id number] Provide [facility] Accessories 3-04 nebulizer ity of Kit 00:00: kit and appropriat [facility] accessorie s. Nebulizer 2021-0 Yes [id number] Provide [facility] Accessories 3-04 nebulizer ity of Kit 00:00: kit and appropriat [facility] accessorie s. Nebulizer 2021-0 Yes [id number] Provide [facility] Accessories 3-04 nebulizer ity of Kit 00:00: kit and appropriat [facility] accessorie s. Nebulizer 2021-0 Yes [id number] Provide [facility] Accessories 3-04 nebulizer ity of Kit 00:00: kit and appropriat [facility] accessorie s. Nebulizer 2021-0 Yes [id number] Provide [facility] Accessories 3-04 nebulizer ity of Kit 00:00: kit and [place] 00 appropriat [facility] accessorie s. Nebulizer 0 Yes [id number] Provide [facility] Accessories 3-04 nebulizer ity of Kit 00:00: kit and [place] 00 appropriat [facility] accessorie s. Nebulizer 0 Yes [id number] Provide [facility] Accessories 3-04 nebulizer ity of Kit 00:00: kit and [place] 00 appropriat [facility] accessorie s. Nebulizer 2021-0 Yes [id number] Provide [facility] Accessories 3-04 nebulizer ity of Kit 00:00: kit and [place] 00 appropriat [facility] accessorie s. Nebulizer 0 Yes [id number] Provide [facility] Accessories 3-04 nebulizer ity of Kit 00:00: kit and [place] 00 appropriat [facility] accessorie s. Nebulizer 0 Yes [id number] Provide [facility] Accessories 3-04 nebulizer ity of Kit 00:00: kit and [place] 00 appropriat [facility] accessorie s. Nebulizer 2021-0 Yes [id number] Provide [facility] Accessories 3-04 nebulizer ity of Kit 00:00: kit and [place] 00 appropriat [facility] accessorie s. Nebulizer 2021-0 Yes [id number] Provide [facility] Accessories 3-04 nebulizer ity of Kit 00:00: kit and [place] 00 appropriat [facility] accessorie s. Nebulizer 0 Yes [id number] Provide [facility] Accessories 3-04 nebulizer ity of Kit 00:00: kit and [place] 00 appropriat [facility] accessorie s. Nebulizer 0 Yes [id number] Provide [facility] Accessories 3-04 nebulizer ity of Kit 00:00: kit and [place] 00 appropriat [facility] accessorie s. Nebulizer 2021-0 Yes [id number] Provide [facility] Accessories 3-04 nebulizer ity of Kit 00:00: kit and [place] 00 appropriat [facility] accessorie s. Nebulizer 2021-0 Yes [id number] Provide [facility] Accessories 3-04 nebulizer ity of Kit 00:00: kit and [place] 00 appropriat [facility] accessorie s. Nebulizer 2021-0 Yes [id number] Provide [facility] Accessories 3-04 nebulizer ity of Kit 00:00: kit and [place] 00 appropriat [facility] accessorie s. Nebulizer 2022-0 Yes [id number] Provide [facility] Accessories 3-04 nebulizer ity of Kit 00:00: kit and [place] 00 appropriat [facility] accessorie s. Nebulizer 0 Yes [id number] Provide [facility] Accessories 3-04 nebulizer ity of Kit 00:00: kit and [place] 00 appropriat [facility] accessorie s. Nebulizer 0 Yes [id number] Provide [facility] Accessories 3-04 nebulizer ity of Kit 00:00: kit and [place] 00 appropriat [facility] accessorie s. Nebulizer 0 Yes [id number] Provide [facility] Accessories 3-04 nebulizer ity of Kit 00:00: kit and [place] 00 appropriat [facility] accessorie s. Nebulizer 0 Yes [id number] Provide [facility] Accessories 3-04 nebulizer ity of Kit 00:00: kit and [place] 00 appropriat [facility] accessorie s. Nebulizer 0 Yes [id number] Provide [facility] Accessories 3-04 nebulizer ity of Kit 00:00: kit and [place] 00 appropriat [facility] accessorie s. Nebulizer Yes [id number] Provide [facility] Accessories 3-04 nebulizer ity of Kit 00:00: kit and [place] 00 appropriat [facility] accessorie s. Nebulizer Yes [id number] Provide [facility] Accessories 3-04 nebulizer ity of Kit 00:00: kit and [place] 00 appropriat [facility] accessorie s. Nebulizer 0 Yes [id number] Provide [facility] Accessories 3-04 nebulizer ity of Kit 00:00: kit and 00 appropriat [facility] accessorie s. Nebulizer 0 Yes [id number] Provide [facility] Accessories 3-04 nebulizer ity of Kit 00:00: kit and [place] 00 appropriat [facility] accessorie s. Nebulizer 0 Yes [id number] Provide [facility] Accessories 3-04 nebulizer ity of Kit 00:00: kit and [place] 00 appropriat [facility] accessorie s. Nebulizer 0 Yes [id number] Provide [facility] Accessories 3-04 nebulizer ity of Kit 00:00: kit and 00 appropriat [facility] accessorie s. Nebulizer 0 Yes [id number] Provide [facility] Accessories 3-04 nebulizer ity of Kit 00:00: kit and [place] 00 appropriat [facility] accessorie s. Nebulizer 2021-0 Yes [id number] Provide [facility] Accessories 3-04 nebulizer ity of Kit 00:00: kit and [place] 00 appropriat [facility] accessorie s. Nebulizer 2021-0 Yes [id number] Provide [facility] Accessories 3-04 nebulizer ity of Kit 00:00: kit and [place] 00 appropriat [facility] accessorie s. Nebulizer 2021-0 Yes [id number] Provide [facility] Accessories 3-04 nebulizer ity of Kit 00:00: kit and [place] 00 appropriat [facility] accessorie s. Nebulizer 2021-0 Yes [id number] Provide [facility] Accessories 3-04 nebulizer ity of Kit 00:00: kit and [place] 00 appropriat [facility] accessorie s. Nebulizer 2021-0 Yes [id number] Provide [facility] Accessories 3-04 nebulizer ity of Kit 00:00: kit and [place] 00 appropriat [facility] accessorie s. Nebulizer 2021-0 Yes [id number] Provide [facility] Accessories 3-04 nebulizer ity of Kit 00:00: kit and [place] 00 appropriat [facility] accessorie s. Nebulizer 2021-0 Yes [id number] Provide [facility] Accessories 3-04 nebulizer ity of Kit 00:00: kit and [place] 00 appropriat [facility] accessorie s. Nebulizer 2021-0 Yes [id number] Provide [facility] Accessories 3-04 nebulizer ity of Kit 00:00: kit and [place] 00 appropriat [facility] accessorie s. Nebulizer 2021-0 Yes [id number] Provide [facility] Accessories 3-04 nebulizer ity of Kit 00:00: kit and [place] 00 appropriat [facility] accessorie s. Nebulizer 2021-0 Yes [id number] [facility] Access[facility] 3-04 nebulizer ity of Kit 00:00: kit and [place] 00 appropriat Medical e Branch accessorie s. Nebulizer 2021-0 Yes [id number] [facility] Accessories 3-04 nebulizer ity of Kit 00:00: kit and [place] 00 appropriat Medical e Branch accessorie s. Nebulizer 2021-0 Yes [id number] [facility] Accessories 3-04 nebulizer ity of Kit 00:00: kit and [place] 00 appropriat Medical e Branch accessorie s. Nebulizer 2021-0 Yes [id number] Provide [facility] Accessories 3-04 nebulizer ity of Kit 00:00: kit and [place] 00 appropriat Medical e Branch accessorie s. Nebulizer 2021-0 Yes [id number] Prov[facility] Accessories 3-04 nebulizer ity of Kit 00:00: kit and [place] 00 appropriat Medical e Branch accessorie s. Nebulizer 2021-0 Yes [id number] Provide [facility] Accessories 3-04 nebulizer ity of Kit 00:00: kit and [place] 00 appropriat Medical e Branch accessorie s. Nebulizer 2021-0 Yes [id number] Provide [facility] Accessories 3-04 nebulizer ity of Kit 00:00: kit and [place] 00 appropriat Medical e Branch accessorie s. Nebulizer 2021-0 Yes [id number] Provide [facility] Accessories 3-04 nebulizer ity of Kit 00:00: kit and [place] 00 appropriat Medical e Branch accessorie s. Nebulizer 2021-0 Yes [id number] Provide [facility] Accessories 3-04 nebulizer ity of Kit 00:00: kit and [place] 00 appropriat Medical e Branch accessorie s. Nebulizer 2021-0 Yes [id number] Provide [facility] Accessories 3-04 nebulizer ity of Kit 00:00: kit and [place] 00 appropriat Medical e Branch accessorie s. Nebulizer 2021-0 Yes [id number] Prov[facility] Accessories 3-04 nebulizer ity of Kit 00:00: kit and [place] 00 appropriat Medical e Branch accessorie s. Nebulizer 2021-0 Yes [id number] Provide [facility] Accessories 3-04 nebulizer ity of Kit 00:00: kit and [place] 00 appropriat Medical e Branch accessorie s. Nebulizer 2021-0 Yes [id number] Provide [facility] Accessories 3-04 nebulizer ity of Kit 00:00: kit and [place] 00 appropriat Medical e Branch accessorie s. Nebulizer 2021-0 Yes [id number] Provide [facility] Accessories 3-04 nebulizer ity of Kit 00:00: kit and [place] 00 appropriat Medical e Branch accessorie s. Nebulizer 2021-0 Yes [id number] Prov[facility] Accessories 3-04 nebulizer ity of Kit 00:00: kit and [place] 00 appropriat Medical e Branch accessorie s. Nebulizer 2021-0 Yes [id number] Provide [facility] Accessories 3-04 nebulizer ity of Kit 00:00: kit and appropriat Medical e Branch accessorie s. Nebulizer 2021-0 Yes [id number] Provide [facility] Accessories 3-04 nebulizer ity of Kit 00:00: kit and appropriat Medical e Branch accessorie s. Nebulizer 2021-0 Yes [id number] Provide [facility] Accessories 3-04 nebulizer ity of Kit 00:00: kit and appropriat Medical e Branch accessorie s. Nebulizer 2021-0 Yes [id number] Provide [facility] Accessories 3-04 nebulizer ity of Kit 00:00: kit and appropriat Medical e Branch accessorie s. Nebulizer 2021-0 Yes [id number] Provide [facility] Accessories 3-04 nebulizer ity of Kit 00:00: kit and appropriat Medical e Branch accessorie s. Nebulizer 2021-0 Yes [id number] Provide [facility] Accessories 3-04 nebulizer ity of Kit 00:00: kit and appropriat Medical e Branch accessorie s. Nebulizer 2021-0 Yes [id number] Provide [facility] Accessories 3-04 nebulizer ity of Kit 00:00: kit and appropriat Medical e Branch accessorie s. Nebulizer 2021-0 Yes [id number] Provide [facility] Accessories 3-04 nebulizer ity of Kit 00:00: kit and appropriat Medical e Branch accessorie s. Nebulizer 2021-0 Yes [id number] Provide [facility] Accessories 3-04 nebulizer ity of Kit 00:00: kit and appropriat Medical e Branch accessorie s. ipratropium 2020-1 Yes [id number] .5mg Inhale 2.5 [facility] 0.02 % 2-03 mL every 4 ity of nebulizer 00:00: (four) [place] solution 00 hours as Medical needed for Branch Wheezing or Shortness of Breath. ipratropium 2020-1 Yes [id number] .5mg Inhale 2.5 [facility] 0.02 % 2-03 mL every 4 ity of nebulizer 00:00: (four) [place] solution 00 hours as Medical needed for Branch Wheezing or Shortness of Breath. ipratropium 1-1 Yes [id number] .5mg Inhale 2.5 [facility] 0.02 % 2-03 mL every 4 ity of nebulizer 00:00: (four) [place] solution 00 hours as Medical needed for Branch Wheezing or Shortness of Breath. ipratropium 2020-1 Yes [id number] .5mg Inhale 2.5 [facility] 0.02 % 2-03 mL every 4 ity of nebulizer 00:00: (four) [place] solution 00 hours as Medical needed for Branch Wheezing or Shortness of Breath. ipratropium 2020-1 Yes [id number] .5mg Inhale 2.5 [facility] 0.02 % 2-03 mL every 4 ity of nebulizer 00:00: (four) [place] solution 00 hours as Medical needed for Branch Wheezing or Shortness of Breath. ipratropium 2020-1 Yes [id number] .5mg Inhale 2.5 [facility] 0.02 % 2-03 mL every 4 ity of nebulizer 00:00: (four) [place] solution 00 hours as Medical needed for Branch Wheezing or Shortness of Breath. ipratropium 2020-1 Yes [id number] .5mg Inhale 2.5 [facility] 0.02 % 2-03 mL every 4 ity of nebulizer 00:00: (four) [place] solution 00 hours as Medical needed for Branch Wheezing or Shortness of Breath. ipratropium 2020-1 Yes [id number] .5mg Inhale 2.5 [facility] 0.02 % 2-03 mL every 4 ity of nebulizer 00:00: (four) [place] solution 00 hours as Medical needed for Branch Wheezing or Shortness of Breath. ipratropium 2020-1 Yes [id number] .5mg Inhale 2.5 [facility] 0.02 % 2-03 mL every 4 ity of nebulizer 00:00: (four) [place] solution 00 hours as Medical needed for Branch Wheezing or Shortness of Breath. ipratropium 1-1 Yes [id number] .5mg Inhale 2.5 [facility] 0.02 % 2-03 mL every 4 ity of nebulizer 00:00: (four) [place] solution 00 hours as Medical needed for Branch Wheezing or Shortness of Breath. ipratropium 2020-1 Yes [id number] .5mg Inhale 2.5 [facility] 0.02 % 2-03 mL every 4 ity of nebulizer 00:00: (four) [place] solution 00 hours as Medical needed for Branch Wheezing or Shortness of Breath. ipratropium 2020-03 Yes [id number] .5mg Inhale 2.5 [facility] 0.02 % 2-03 mL every 4 ity of nebulizer 00:00: (four) [place] solution 00 hours as Medical needed for Branch Wheezing or Shortness of Breath. ipratropium 2020-03 Yes [id number] .5mg Inhale 2.5 [facility] 0.02 % 2-03 mL every 4 ity of nebulizer 00:00: (four) [place] solution 00 hours as Medical needed for Branch Wheezing or Shortness of Breath. ipratropium 2020-03 Yes [id number] .5mg Inhale 2.5 [facility] 0.02 % 2-03 mL every 4 ity of nebulizer 00:00: (four) [place] solution 00 hours as Medical needed for Branch Wheezing or Shortness of Breath. ipratropium 2020-03- No [id number] .5mg Inhale 2.5 [facility] 0.02 % 2-03 09-29 mL every 4 ity of nebulizer 00:00: 00:00 (four) [place] solution 00 :00 hours as Medical needed for Branch Wheezing or Shortness of Breath. ipratropium 2020-03- No [id number] .5mg Inhale 2.5 [facility] 0.02 % 2-03 09-29 mL every 4 ity of nebulizer 00:00: 00:00 (four) [place] solution 00 :00 hours as Medical needed for Branch Wheezing or Shortness of Breath. ipratropium 2020-03- No [id number] .5mg Inhale 2.5 [facility] 0.02 % 2-03 [...] bedtime; takes at bedtime levothyroxi 2021- No [id number] 175ug Take 1 [facility] ne 175 mcg -29 03-18 tablet by ity of tablet 00:00: 00:00 mouth [place] 00 :00 every Medical morning. Branch ipratropium 2020- No [id number] 1{spray Use 1 [facility] 42 mcg 7- 10-19 1 } [place] in ity of (0.06 %) 00:00: 00:00 each [place] nasal spray 00 :00 nostril 2 Med ical (two) Branch times daily. benzonatate 2020- No [id number] 100mg Take 1 [facility] 100 mg 7-05 08-20 capsule by ity of capsule 00:00: 00:00 mouth 2 [place] 00 :00 (two) Medical times Branch daily as needed for Cough. pravastatin 2020- No [id number] 80mg Take 1 [facility] 80 mg 6-30 tablet by ity of tablet 00:00: 00:00 mouth at [place] 00 :00 bedtime. Medical Branch allopurinoL 2020- No [id number] 100mg Take 1 [facility] 100 mg 6-15 12-13 tablet by ity of tablet 00:00: 00:00 mouth [place] 00 :00 daily. Medical Branch hydrOXYzine 2020- No [id number] 10mg Take 1 [facility] 10 mg 6- 08-20 tablet by ity of tablet 00:00: 00:00 mouth [place] 00 :00 every 6 Medical (six) Branch hours as needed for Itching or Anxiety (Insomnia) . traZODone 2020- No [id number] 50mg Take 1 [facility] 50 mg 6- 09-07 tablet by ity of tablet 00:00: 00:00 mouth at [place] 00 :00 bedtime. Medical Branch tamsulosin 2020- No [id number] .4mg Take 1 [facility] 0.4 mg 24 6- 08-20 capsule by ity of hr capsule 00:00: 00:00 mouth [place] 00 :00 daily. Medical Branch omeprazole 2020- No [id number] 40mg Take 1 [facility] 40 mg 5-26 -20 capsule by ity of capsule 00:00: 00:00 mouth [place] 00 :00 daily. Medical Branch glipiZIDE 5 2020- No [id number] 2.5mg Take 0.5 [facility] mg tablet 06-2918 tablets by ity of 00:00: 00:00 mouth 2 [place] 00 :00 (two) Medical times Branch daily. May increase to 1 tablet BID gradually if fasting glucose remains >130. fexofenadin 2020- No [id number] 180mg Take 1 [facility] e 180 mg 06-08 tablet by ity o f tablet 00:00: 00:00 mouth [place] 00 :00 daily. Medical Branch azelastine 2020- No [id number] 1{spray Use 1 [facility] 137 mcg 06-08 } [place] in ity of (0.1 %) 00:00: 00:00 each [place] nasal spray 00 :00 nostril 2 Med ical (two) Branch times daily. Use in each nostril as directed fluticasone 2020- No [id number] 1{spray Use 1 [facility] propionate 06-08 } [place] in ity of 50 00:00: 00:00 each [place] mcg/actuati 00 :00 nostril 2 Med ical on nasal (two) Branch spray times daily. azelastine 2020- No [id number] 1{spray Use 1 [facility] 137 mcg 04-28 } [place] in ity of (0.1 %) 00:00: 00:00 each [place] nasal spray 00 :00 nostril 2 Med ical (two) Branch times daily. Use in each nostril as directed allopurinoL 2020- No [id number] 100mg Take 1 [facility] 100 mg 04-25-14 tablet by ity of tablet 00:00: 00:00 mouth [place] 00 :00 daily. Medical Branch hydrOXYzine 2020- No [id number] 10mg Take 1 [facility] 10 mg 04-25-07 tablet by ity of tablet 00:00: 00:00 mouth [place] 00 :00 every 6 Medical (six) Branch hours as needed for Itching or Anxiety (Insomnia) . furosemide 2020- No [id number] 40mg Take 1 [facility] 40 mg 2-17 08-20 tablet by ity of tablet 00:00: 00:00 mouth [place] 00 :00 every Medical morning Branch and evening. furosemide 2020- No [id number] 40mg Take 1 [facility] 40 mg 2-17 08-20 tablet by ity of tablet 00:00: 00:00 mouth [place] 00 :00 every Medical morning Branch and evening. lisinopriL 2020- No [id number] 5mg Take 1 [facility] 5 mg tablet 04-13-12 tablet by it y of 00:00: 04:59 mouth [place] 00 :00 daily for Medical 90 days. Branch levothyroxi 2020- No [id number] 175ug Take 1 [facility] ne 175 mcg [...] or Shortness of Breath. guaiFENesin 2020- No [id number] 200mg Take 1 [facility] 200 mg 1-19 10-19 tablet by ity of tablet 00:00: 00:00 mouth [place] 00 :00 every 4 Medical (four) Branch hours as needed for Cough. guaiFENesin 2020- No [id number] 200mg Take 1 [facility] 200 mg 1-19 10-19 tablet by ity of tablet 00:00: 00:00 mouth [place] 00 :00 every 4 Medical (four) Branch hours as needed for Cough. traZODone 2020- No [id number] 50mg Take 1 [facility] 50 mg -14 - tablet by ity of tablet 00:00: 00:00 mouth at [place] 00 :00 bedtime. Medical Branch tamsulosin 2020- No [id number] .4mg Take 1 [facility] 0.4 mg 24 03-17 04-13 capsule by ity of hr capsule 00:00: 00:00 mouth [place] 00 :00 daily. Medical Branch baclofen 10 2019-03- No [id number] 10mg Take 1 [facility] mg tablet - 08-20 tablet by ity of 00:00: 00:00 mouth 3 [place] 00 :00 (three) Medical times Branch daily as needed for Pain (scale 7-10). baclofen 10 2019-03- No [id number] 10mg Take 1 [facility] mg tablet 03-27 08-20 tablet by ity of 00:00: 00:00 mouth 3 [place] 00 :00 (three) Medical times Branch daily as needed for Pain (scale 7-10). baclofen 10 2019-03- No [id number] 10mg Take 1 [facility] mg tablet 03-27 08-20 tablet by ity of 00:00: 00:00 mouth 3 [place] 00 :00 (three) Medical times Branch daily as needed for Pain (scale 7-10). hydrOXYzine 2019-03 No [id number] 10mg Take 1 [facility] 10 mg 03-27 12-22 tablet by ity of tablet 00:00: 00:00 mouth [place] 00 :00 every 6 Medical (six) Branch hours as needed for Itching or Anxiety (Insomnia) . atorvastati 2019-03- No Unive rs n 20 mg 03-25 12-29 ity of tablet 00:00: 00:00 [place] 00 :00 Medical Branch traZODone 2019-03- No [id number] 50mg Take 1 [facility] 50 mg 1-20 01-14 tablet by ity of tablet 00:00: 00:00 mouth at [place] 00 :00 bedtime. Medical Branch guaiFENesin 2019-03- No [id number] 200mg Take 1 [facility] 200 mg 1-20 12-16 tablet by ity of tablet 00:00: 00:00 mouth [place] 00 :00 every 4 Medical (four) Branch hours as needed for Cough. fluticasone 2019-03- No [id number] 1{spray Use 1 [facility] propionate 03-05 04-07 } [place] in ity of 50 00:00: 00:00 each [place] mcg/actuati 00 :00 nostril 2 Med ical on nasal (two) Branch spray times daily. fluticasone 2019-03- No [id number] 1{spray Use 1 [facility] propionate 03-05 } [place] in ity of 50 00:00: 00:00 each [place] mcg/actuati 00 :00 nostril 2 Med ical on nasal (two) Branch spray times daily. tamsulosin 2019-03- No [id number] .4mg Take 1 [facility] 0.4 mg 24 03-17 capsule by ity of hr capsule 00:00: 00:00 mouth [place] 00 :00 daily. Medical Branch pravastatin 2020- No [id number] 80mg Take 1 [facility] 80 mg 11-30 tablet by ity of tablet 00:00: 00:00 mouth at [place] 00 :00 bedtime. Medical Branch pravastatin 2020- No [id number] 80mg Take 1 [facility] 80 mg 11-30 tablet by ity of tablet 00:00: 00:00 mouth at [place] 00 :00 bedtime. Medical Branch albuterol 2020- No [id number] INHALE 2 [facility] 90 11-23 02-25 PUFFS BY ity of mcg/actuati 00:00: 00:00 MOUTH [place] on inhaler 00 :00 EVERY 6 Medica l HOURS Branch NEEEDED FOR WHEEZING cetirizine 2020- No [id number] 10mg Take 1 [facility] 10 mg 11-12- tablet by ity of tablet 00:00: 00:00 mouth [place] 00 :00 daily. Medical Branch cetirizine 2020- No [id number] 10mg Take 1 [facility] 10 mg 11-12-07 tablet by ity of tablet 00:00: 00:00 mouth [place] 00 :00 daily. Medical Branch furosemide 2020- No [id number] 40mg Take 1 [facility] 40 mg 11-12-15 tablet by ity of tablet 00:00: 00:00 mouth [place] 00 :00 every Medical morning Branch and evening. glipiZIDE 5 2020- No [id number] 2.5mg Take 0.5 [facility] mg tablet 11-01- tablets by ity of 00:00: 00:00 mouth 2 [place] 00 :00 (two) Medical times Branch daily. May increase to 1 tablet BID gradually if fasting glucose remains >130. glipiZIDE 5 2020- No [id number] 2.5mg Take 0.5 [facility] mg tablet 11-01-28 tablets by ity of 00:00: 00:00 mouth 2 [place] 00 :00 (two) Medical times Branch daily. May increase to 1 tablet BID gradually if fasting glucose remains >130. allopurinoL 2020- No [id number] 100mg Take 1 [facility] 100 mg 11-01 02-20 tablet by ity of tablet 00:00: 00:00 mouth [place] 00 :00 daily. Medical Branch ipratropium 2020- No [id number] .5mg Inhale 2.5 [facility] 0.02 % 6-11 12-03 mL every 4 ity of nebulizer 00:00: 00:00 (four) [place] solution 00 :00 hours as Medical needed for Branch Wheezing or Shortness of Breath. ipratropium No [id number] .5mg Inhale 2.5 [facility] 0.02 % 6-11 12-03 mL every 4 ity of nebulizer 00:00: 00:00 (four) [place] solution 00 :00 hours as Medical needed for Branch Wheezing or Shortness of Breath. ipratropium No [id number] .5mg Inhale 2.5 [facility] 0.02 % 6-11 12-03 mL every 4 ity of nebulizer 00:00: 00:00 (four) [place] solution 00 :00 hours as Medical needed for Branch Wheezing or Shortness of Breath. insulin 2018-03- No [id number] TAKE 10 Un renetta detemir 2-27 01-10 UNITS IN ity of U-100 00:00: 00:00 THE [place] (LEVEMIR 00 :00 MORNING Medical U-100 AND THEN Branch INSULIN) TAKE 10 100 unit/mL UNITS AT injection NIGHT fluticasone 2018-03- No [id number] 1{puff} Inhale 1 Univers furoate-fitz 2-20 02-18 Puff ity of anterol 00:00: 00:00 daily. [place] (BREO 00 :00 Medical ELLIPTA) Branch 100-25 mcg/dose DsDv predniSONE 2018-03- No [id number] 10mg Take 0.5 [facility] 20 mg 2-20 -17 tablets by ity of tablet 00:00: 00:00 mouth [place] 00 :00 daily. Medical Branch LEVOTHYROXI 2018-03 2020- No [id number] 137ug TAKE 1 Univers NE 137 mcg -19 -18 TABLET BY ity of tablet 00:00: 00:00 MOUTH [place] 00 :00 EVERY Medical MORNING Branch FUROSEMIDE 2018-03 2020- No [id number] 40mg TAKE 1 [facility] 40 mg -20 05-17 TABLET BY ity of tablet 00:00: 00:00 MOUTH [place] 00 :00 EVERY Medical MORNING Branch Insulin 2018-03 2020- No [id number] 5U inject 5 U nivers Lispro, 2-16 01-10 Units ity of Human, 100 00:00: 00:00 [place] unit/mL 00 :00 skin 3 Medical cartridge (three) Branch times daily with meals for 30 days. Polyethylen 2018-03 2020- No [id number] 17g Take 1 Univers e Glycol 2-15 04-22 Packet by ity o f 3350 17 00:00: 00:00 mouth [place] gram powder 00 :00 daily. Medica l Branch Insulin 2018-03 2020- No [id number] Use as Un renetta [place], 2-14 10-20 directed ity of Disposable, 00:00: 00:00 [place] 32 gauge x 00 :00 Medical 16" [place] Branch sodium 2018-03 Yes [id number] 4mL Inhale 4 Un renetta chloride 7% 1-22 mL 2 (two) it y of nebulizer 00:00: times [place] solution 00 daily. Medical [place] sodium 2018-03 Yes [id number] 4mL Inhale 4 Un renetta chloride 7% 1-22 mL 2 (two) it y of nebulizer 00:00: times [place] solution 00 daily. Medical [place] sodium 2018-03 Yes [id number] 4mL Inhale 4 Un renetta chloride 7% 1-22 mL 2 (two) it y of nebulizer 00:00: times [place] solution 00 daily. [facility] sodium 2018-03 Yes [id number] 4mL Inhale 4 Un renetta chloride 7% 1-22 mL 2 (two) it y of nebulizer 00:00: times [place] solution 00 daily. [facility] sodium 2018-03 Yes [id number] 4mL Inhale 4 Un renetta chloride 7% 1-22 mL 2 (two) it y of nebulizer 00:00: times [place] solution 00 daily. Medical Branch sodium 2019- Yes [id number] 4mL Inhale 4 Un renetta chloride 7% 1-22 mL 2 (two) it y of nebulizer 00:00: times [place] solution 00 daily. Medical Branch sodium 2018- Yes [id number] 4mL Inhale 4 Un renetta chloride 7% 1-22 mL 2 (two) it y of nebulizer 00:00: times [place] solution 00 daily. Medical Branch sodium 2018- Yes [id number] 4mL Inhale 4 Un renetta chloride 7% 1-22 mL 2 (two) it y of nebulizer 00:00: times [place] solution 00 daily. Medical Branch sodium 2018- Yes [id number] 4mL Inhale 4 Un renetta chloride 7% 1-22 mL 2 (two) it y of nebulizer 00:00: times [place] solution 00 daily. Medical Branch sodium 2018- Yes [id number] 4mL Inhale 4 Un renetta chloride 7% 1-22 mL 2 (two) it y of nebulizer 00:00: times [place] solution 00 daily. Medical Branch sodium 2019- Yes [id number] 4mL Inhale 4 Un renetta chloride 7% 1-22 mL 2 (two) it y of nebulizer 00:00: times [place] solution 00 daily. Medical Branch sodium 2018- Yes [id number] 4mL Inhale 4 Un renetta chloride 7% 1-22 mL 2 (two) it y of nebulizer 00:00: times [place] solution 00 daily. Medical Branch sodium 2018- Yes [id number] 4mL Inhale 4 Un renetta chloride 7% 1-22 mL 2 (two) it y of nebulizer 00:00: times [place] solution 00 daily. Medical Branch sodium 2019- Yes [id number] 4mL Inhale 4 Un renetta chloride 7% 1-22 mL 2 (two) it y of nebulizer 00:00: times [place] solution 00 daily. Medical Branch sodium 2019- Yes [id number] 4mL Inhale 4 Un renetta chloride 7% 1-22 mL 2 (two) it y of nebulizer 00:00: times [place] solution 00 daily. Medical Branch sodium 2018- Yes [id number] 4mL Inhale 4 Un renetta chloride 7% 1-22 mL 2 (two) it y of nebulizer 00:00: times [place] solution 00 daily. Medical Branch sodium 2018-03 Yes [id number] 4mL Inhale 4 Un renetta chloride 7% 1-22 mL 2 (two) it y of nebulizer 00:00: times [place] solution 00 daily. Medical Branch sodium 2018-03 Yes [id number] 4mL Inhale 4 Un renetta chloride 7% 1-22 mL 2 (two) it y of nebulizer 00:00: times [place] solution 00 daily. Medical Branch sodium 2018-03 Yes [id number] 4mL Inhale 4 Un renetta chloride 7% 1-22 mL 2 (two) it y of nebulizer 00:00: times [place] solution 00 daily. Medical Branch sodium 2018-03 Yes [id number] 4mL Inhale 4 Un renetta chloride 7% 1-22 mL 2 (two) it y of nebulizer 00:00: times [place] solution 00 daily. Medical Branch sodium 2018-03- No [id number] 4mL Inhale 4 U nivers chloride 7% 1-22 10-05 mL 2 (two) i ty of nebulizer 00:00: 00:00 times [place] solution 00 :00 daily. Medical Branch sodium 2018-03- No [id number] 4mL Inhale 4 U nivers chloride 7% 1-22 10-05 mL 2 (two) i ty of nebulizer 00:00: 00:00 times [place] solution 00 :00 daily. Medical Branch sodium 2018-2021- No [id number] 4mL Inhale 4 U nivers chloride 7% 1-22 10-05 mL 2 (two) i ty of nebulizer 00:00: 00:00 times [place] solution 00 :00 daily. Medical Branch sodium 2018-03- No [id number] 4mL Inhale 4 U nivers chloride 7% 1-22 10-05 mL 2 (two) i ty of nebulizer 00:00: 00:00 times [place] solution 00 :00 daily. Medical Branch sodium 2018-2021- No [id number] 4mL Inhale 4 U nivers chloride 7% 1-22 10-05 mL 2 (two) i ty of nebulizer 00:00: 00:00 times [place] solution 00 :00 daily. Medical Branch sodium 2018-03- No [id number] 4mL Inhale 4 U nivers chloride 7% 03-25 10-05 mL 2 (two) i ty of nebulizer 00:00: 00:00 times [place] solution 00 :00 daily. Medical Branch sodium 2018-03- No [id number] 4mL Inhale 4 U nivers chloride 7% 03-25 10-05 mL 2 (two) i ty of nebulizer 00:00: 00:00 times [place] solution 00 :00 daily. Medical Branch albuterol 2018-03- No [id number] 2.5mg Inhale 3 Univers 2.5 mg /3 03-25 12-03 mL every 4 ity of mL (0.083 00:00: 00:00 (four) [place] %) 00 :00 hours as Medical nebulizer needed for Bran ch solution Wheezing or Shortness of Breath. albuterol 2018-03- No [id number] 2.5mg Inhale 3 Univers 2.5 mg /3 03-25 12-03 mL every 4 ity of mL (0.083 00:00: 00:00 (four) [place] %) 00 :00 hours as Medical nebulizer needed for Bran ch solution Wheezing or Shortness of Breath. albuterol 2018-03- No [id number] 2.5mg Inhale 3 Univers 2.5 mg /3 03-25 12-03 mL every 4 ity of mL (0.083 00:00: 00:00 (four) [place] %) 00 :00 hours as Medical nebulizer needed for Bran ch solution Wheezing or Shortness of Breath. albuterol 2018-03- No [id number] 2.5mg Inhale 3 Univers 2.5 mg /3 03-25 12-03 mL every 4 ity of mL (0.083 00:00: 00:00 (four) [place] %) 00 :00 hours as Medical nebulizer needed for Bran ch solution Wheezing or Shortness of Breath. fluticasone 2018-03- No [id number] 1{spray Use 1 [facility] propionate 03-25 } [place] in ity of 50 00:00: 00:00 each [place] mcg/actuati 00 :00 nostril 2 Med ical on nasal (two) Branch spray times daily. cetirizine 2018-03- No [id number] 10mg Take 1 [facility] 10 mg 03-25 0911 tablet by ity of tablet 00:00: 00:00 mouth [place] 00 :00 daily. Medical Branch ipratropium 2018-03 2020- No [id number] .5mg Inhale 2.5 Univers 0.02 % 03-25 0611 mL every 4 ity of nebulizer 00:00: 00:00 (four) [place] solution 00 :00 hours as Medical needed for Branch Wheezing or Shortness of Breath. Docusate 2018-03 No Notes: [place] 1-16 (Same as: l 15:00: Colace) [place] 00 (Do Not Crush) Docusate 2018-03 No Notes: [place] 1-16 (Same as: l 15:00: Colace) [place] 00 (Do Not Crush) Docusate 2018-03 No Notes: [place] 1-16 (Same as: l 15:00: Colace) [place] 00 (Do Not Crush) Docusate 2018-03 No Notes: [facility] 1-16 (Same as: l 15:00: Colace) [place] 00 (Do Not Crush) Docusate 2018-03 No Notes: [place] 1-16 (Same as: l 15:00: Colace) [place] 00 (Do Not Crush) Docusate 2018-03 No Notes: [facility] 1-16 (Same as: l 15:00: Colace) [place] 00 (Do Not Crush) Docusate 2018-03 No Notes: [facility] 1-16 (Same as: l 15:00: Colace) [place] 00 (Do Not Crush) Docusate 2018-03 No Notes: [facility] 1-16 (Same as: l 15:00: Colace) [place] 00 (Do Not Crush) heparin 2018-03 No [...] sodium, 1-16 porcine l porcine 06:00: heparin [place] 2500 UNT/ML 00 Injectable Solution heparin 2018-03 No Notes: [place] sodium, 1-16 porcine l porcine 06:00: heparin [place] 2500 UNT/ML 00 Injectable Solution heparin 2018-03 [...] d) sennosides, 2018-03 No Notes: [place] dilcia HALF-WAY 1-16 (Same as: l 03:00: Senokot) [place] Azithromyci 2018-03 No Notes: [place] dilcia n 1-16 (Same As: l 03:00: Zithromax [place] 00 IV) methylPREDN 2018-03 No Notes: [place] dilcia ISolone 1-16 (Same l SODium 03:00: as:Solu-ME [place] nn SUCCinate 00 DROL, A-Methapre d) sennosides, 2018-03 No Notes: [place] dilcia HALF-WAY 1-16 (Same as: l 03:00: Senokot) [place] Azithromyci 2018-03 No Notes: [place] dilcia n 1-16 (Same As: l 03:00: Zithromax [place] 00 IV) methylPREDN 2018-03 No Notes: [place] dilcia ISolone 1-16 (Same l SODium 03:00: as:Solu-ME [place] nn SUCCinate 00 DROL, A-Methapre d) sennosides, 2018-03 No Notes: [place] dilcia HALF-WAY 1-16 (Same as: l 03:00: Senokot) [place] 00 Azithromyci 2018-03 No Notes: [place] dilcia n 1-16 (Same As: l 03:00: Zithromax [place] 00 IV) methylPREDN 2018-03 No Notes: [place] dilcia ISolone 1-16 (Same l SODium 03:00: as:Solu-ME [place] nn SUCCinate 00 DROL, A-Methapre d) sennosides, 2018-03 No Notes: Randell dilcia HALF-WAY 1-16 (Same as: l 03:00: Senokot) [place] Azithromyci 2018-03 No Notes: Randell dilcia n 1-16 (Same As: l 03:00: Zithromax [place] 00 IV) methylPREDN 2018-03 No Notes: Randell idlcia ISolone 1-16 (Same l SODium 03:00: as:Solu-ME [place] nn SUCCinate 00 DROL, A-Methapre d) sennosides, 2018-03 No Notes: Randell dilcia HALF-WAY 1-16 (Same as: l 03:00: Senokot) [place] ithromyci 2018-03 No Notes: Randell dilcia n 1-16 (Same As: l 03:00: Zithromax [place] 00 IV) methylPREDN 2018-03 No Notes: Randell dilcia ISolone 1-16 (Same l SODium 03:00: as:Solu-ME [place] nn SUCCinate 00 DROL, A-Methapre d) sennosides, 2018-03 No Notes: Randell dilcia HALF-WAY 1-16 (Same as: l 03:00: Senokot) [place] ithromyci 2018-03 No Notes: Randell dilcia n 1-16 (Same As: l 03:00: Zithromax [place] 00 IV) methylPREDN 2018-03 No Notes: Randell dilcia ISolone 1-16 (Same l SODium 03:00: as:Solu-ME [place] nn SUCCinate 00 DROL, A-Methapre d) sennosides, 2018-03 No Notes: Randell dilcia HALF-WAY 1-16 (Same as: l 03:00: Senokot) [place] ithromyci 2018-03 No Notes: Randell dilcia n 1-16 (Same As: l 03:00: Zithromax [place] 00 IV) methylPREDN 2018-03 No Notes: Randell dilcia ISolone 1-16 (Same l SODium 03:00: as:Solu-ME [place] nn SUCCinate 00 DROL, A-Methapre d) sennosides, 2018-03 No Notes: Randell dilcia HALF-WAY 1-16 (Same as: l 03:00: Senokot) [place] Azithromyci 2018-03 No Notes: Randell dilcia n 1-16 (Same As: l 03:00: Zithromax [place] 00 IV) Budesonide 2018-03 No Notes: Memor ia 1-16 (Same As: l 02:39: Pulmicort) [place] Budesonide 2018-03 No Notes: [facility] ia 1-16 (Same As: l 02:39: Pulmicort) [place] Budesonide 2018-03 No Notes: Memor ia 1-16 (Same As: l 02:39: Pulmicort) [place] Budesonide 2018-03 No Notes: Memor ia 1-16 (Same As: l 02:39: Pulmicort) [place] Budesonide 2018-03 No Notes: Memor ia 1-16 (Same As: l 02:39: Pulmicort) [place] Budesonide 2018-03 No Notes: Memor ia 1-16 (Same As: l 02:39: Pulmicort) [place] Budesonide 2018-03 No Notes: Memor ia 1-16 (Same As: l 02:39: Pulmicort) [place] Budesonide 2018-03 No Notes: Memor ia 1-16 (Same As: l 02:39: Pulmicort) [place] influenza 2018-03 No Notes: Memori a virus [...] tab, PO, l tablet 01:31: Daily, 0 [place] 00 Refill(s) Albuterol 2018-03 Yes 2.5 mg [...] tab, PO, l Tablet 01:31: Daily, 0 [place] [Lasix] 00 Refill(s) amLODIPine 2018-03 Yes 5 [...] tab, PO, l tablet 01:31: Daily, 0 [place] 00 Refill(s) Albuterol 2018-03 Yes 2.5 mg = 3 Me moria 0.83 MG/ML 1-16 mL, NEB, l Inhalant 01:31: Q6H, PRN [place] nn Solution 00 as needed for wheezing, 0 Refill(s) Furosemide 2018-03 Yes 40 mg = 1 Me moria 40 MG Oral 1-16 tab, PO, l Tablet 01:31: Daily, 0 [place] [Lasix] 00 Refill(s) amLODIPine 2018-03 Yes 5 mg = 1 Mem oria 5 mg oral 1-16 tab, PO, l tablet 01:31: Daily, 0 [place] 00 Refill(s) Albuterol 2018-03 Yes 2.5 mg [...] tab, PO, l tablet 01:31: Daily, 0 [place] 00 Refill(s) Albuterol 2018-03 Yes 2.5 mg [...] Blood Glucose Results, Start date: 01/16/19 19:03:00 PHOTO MACHINE OPERATOR, Duration: 30 day, Stop date: 02/15/19 19:02:00 PHOTO MACHINE OPERATOR, 0 Glucagon 2018-03 No 1 mg, Memoria 1-16 Route: IM, l 01:03: Drug form: [place] 00 PDR/INJ, PRN, Dosing Weight 93.636, kg, PRN Blood Glucose Results, Start date: 01/16/19 19:03:00 PHOTO MACHINE OPERATOR, Duration: 30 day, Stop date: 02/15/19 19:02:00 PHOTO MACHINE OPERATOR, 0 Insulin 2018-03 No Notes: [facility] Lispro 1-16 (Same as: l 01:03: Humalog) [place] 00 Roll in palms of hands gently; Do not shake vigorously . WASTE: F/P - Black; E - Municipal Trash Bin Stable for 28 days at room temperatur e. Expires in days from ____Date Dextrose 2018-03 No 12.5 gm, [facility] 50% Syringe 1-16 25 mL, l 01:03: Route: [place] 00 IVP, Drug Form: INJ, Dosing Weight 93.636, kg, PRN, PRN Blood Glucose Results, Start date: 01/16/19 19:03:00 PHOTO MACHINE OPERATOR, Duration: 30 day, Stop date: 02/15/19 19:02:00 PHOTO MACHINE OPERATOR, 0 Glucagon 2018-03 No 1 mg, [facility] 1-16 Route: IM, l 01:03: Drug form: [place] 00 PDR/INJ, PRN, Dosing Weight 93.636, kg, PRN Blood Glucose Results, Start date: 01/16/19 19:03:00 PHOTO MACHINE OPERATOR, Duration: 30 day, Stop date: 02/15/19 19:02:00 PHOTO MACHINE OPERATOR, 0 Insulin 2018-03 No Notes: [facility] Lispro 1-16 (Same as: l 01:03: Humalog) [place] 00 Roll in palms of hands gently; [...] Blood Glucose Results, Start date: 01/16/19 19:03:00 PHOTO MACHINE OPERATOR, Duration: 30 day, Stop date: 02/15/19 19:02:00 PHOTO MACHINE OPERATOR, 0 Glucagon 2018- No 1 mg, [facility] 1-16 Route: IM, l 01:03: Drug form: [place] 00 PDR/INJ, PRN, Dosing Weight 93.636, kg, PRN Blood Glucose Results, Start date: 01/16/19 19:03:00 PHOTO MACHINE OPERATOR, Duration: 30 day, Stop date: 02/15/19 19:02:00 PHOTO MACHINE OPERATOR, 0 Insulin 2018- No Notes: [facility] Lispro 1-16 (Same as: l 01:03: Humalog) [place] 00 Roll in palms of hands gently; Do not shake vigorously . WASTE: F/P - Black; E - Municipal Trash Bin Stable for 28 days at room temperatur e. Expires in days from ____Date Dextrose 2018-03 No 12.5 gm, [facility] 50% Syringe 1-16 25 mL, l 01:03: Route: [place] 00 IVP, Drug Form: INJ, Dosing Weight 93.636, kg, PRN, PRN Blood Glucose Results, Start date: 01/16/19 19:03:00 PHOTO MACHINE OPERATOR, Duration: 30 day, Stop date: 02/15/19 19:02:00 PHOTO MACHINE OPERATOR, 0 Glucagon 2018- No 1 mg, [facility] 1-16 Route: IM, l 01:03: Drug form: [place] 00 PDR/INJ, PRN, Dosing Weight 93.636, kg, PRN Blood Glucose Results, Start date: 01/16/19 19:03:00 PHOTO MACHINE OPERATOR, Duration: 30 day, Stop date: 02/15/19 19:02:00 PHOTO MACHINE OPERATOR, 0 Insulin 2019- No Notes: [facility] Lispro [...] Blood Glucose Results, Start date: 01/16/19 19:03:00 PHOTO MACHINE OPERATOR, Duration: 30 day, Stop date: 02/15/19 19:02:00 PHOTO MACHINE OPERATOR, 0 Glucagon 2018-03 No 1 mg, [facility] 1-16 Route: IM, l 01:03: Drug form: [place] 00 PDR/INJ, PRN, Dosing Weight 93.636, kg, PRN Blood Glucose Results, Start date: 01/16/19 19:03:00 PHOTO MACHINE OPERATOR, Duration: 30 day, Stop date: 02/15/19 19:02:00 PHOTO MACHINE OPERATOR, 0 Insulin 2018- No Notes: [facility] Lispro [...] Blood Glucose Results, Start date: 01/16/19 19:03:00 PHOTO MACHINE OPERATOR, Duration: 30 day, Stop date: 02/15/19 19:02:00 PHOTO MACHINE OPERATOR, 0 Glucagon 2018-03 No 1 mg, [facility] 1-16 Route: IM, l 01:03: Drug form: [place] 00 PDR/INJ, PRN, Dosing Weight 93.636, kg, PRN Blood Glucose Results, Start date: 01/16/19 19:03:00 PHOTO MACHINE OPERATOR, Duration: 30 day, Stop date: 02/15/19 19:02:00 PHOTO MACHINE OPERATOR, 0 Insulin 2018- No Notes: [facility] Lispro 1-16 (Same as: l 01:03: Humalog) [place] 00 Roll in palms of hands gently; Do not shake vigorously . WASTE: F/P - Black; E - Municipal Trash Bin Stable for 28 days at room temperatur e. 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 WASTE: F/P - Black; E - Municipal Trash Bin Stable for 28 days at room temperatur e. Expires in days from ____Date Dextrose 2018-03 No 12.5 gm, [facility] 50% Syringe 1-16 25 mL, l 01:03: Route: [place] 00 IVP, Drug Form: INJ, Dosing Weight 93.636, kg, PRN, PRN Blood Glucose Results, Start date: 01/16/19 19:03:00 PHOTO MACHINE OPERATOR, Duration: 30 day, Stop date: 02/15/19 19:02:00 PHOTO MACHINE OPERATOR, 0 Glucagon 2018-03 No 1 mg, [facility] 1-16 Route: IM, l 01:03: Drug form: [place] 00 PDR/INJ, PRN, Dosing Weight 93.636, kg, PRN Blood Glucose Results, Start date: 01/16/19 19:03:00 PHOTO MACHINE OPERATOR, Duration: 30 day, Stop date: 02/15/19 19:02:00 PHOTO MACHINE OPERATOR, 0 Insulin 2018-03 No Notes: [facility] Lispro 1-16 (Same as: l 01:03: Humalog) [place] 00 Roll in palms of hands gently; Do not shake vigorously . WASTE: F/P - Black; E - Municipal Trash Bin Stable for 28 days at room temperatur e. Expires in days from ____Date Hydralazine 2018-03 No Notes: Randell dilcia 1-16 (Same as: l 01:01: Apresoline [place] 00 ) Push over 5 minutes Hydralazine [...] dilcia 1-16 (Same as: l 01:01: Apresoline [place] 00 ) Push over 5 minutes Hydralazine 2018-03 No Notes: [facility] dilcia 1-16 (Same as: l 01:01: Apresoline [place] 00 ) Push over 5 minutes Hydralazine 2018-03 No Notes: [facility] dilcia 1-16 (Same as: l 01:01: Apresoline [place] 00 ) Push over 5 minutes Hydralazine 2018-03 No Notes: [facility] dilcia 1-16 (Same as: l 01:01: Apresoline [place] 00 ) Push over 5 minutes Albuterol 2018-03 No Notes: Memori a 0.833 MG/ML 1-16 (Same as: :: Duoneb) [place] Ipratropium 00 [place] 0.167 MG/ML Inhalant Solution Albuterol 2018-03 No Notes: Memori a 0.833 MG/ML 1-16 (Same as: :: Duone) [place] Ipratropium 00 [place] 0.167 MG/ML Inhalant Solution Albuterol 2018-03 No Notes: Memori a 0.833 MG/ML 1-16 (Same as: :: Duone) [place] Ipratropium 00 [place] 0.167 MG/ML Inhalant Solution Albuterol 2018-03 No Notes: Memori a 0.833 MG/ML 1-16 (Same as: :: one) [place] Ipratropium 00 [place] 0.167 MG/ML Inhalant Solution Albuterol 2018-03 No Notes: Memori a 0.833 MG/ML 1-16 (Same as: :: Duone) [place] Ipratropium 00 [place] 0.167 MG/ML Inhalant Solution Albuterol 2018-03 No Notes: Memori a 0.833 MG/ML 1-16 (Same as: :: Duone) [place] Ipratropium 00 [place] 0.167 MG/ML Inhalant Solution Albuterol 2018-03 No Notes: Memori a 0.833 MG/ML 1-16 (Same as: :: Duone) [place] Ipratropium 00 [place] 0.167 MG/ML Inhalant Solution Albuterol 2018-03 No Notes: Memori a 0.833 MG/ML 1-16 (Same as: :: Duone) [place] Ipratropium 00 [place] 0.167 MG/ML Inhalant Solution Dextrose 2018-03 No 12.5 gm, [facility] 50% Syringe 1-16 25 mL, l 00:56: Route: [place] 00 IVP, Drug Form: INJ, Dosing Weight 93.636, kg, PRN, PRN Blood Glucose Results, Start date: 01/16/19 18:56:00 PHOTO MACHINE OPERATOR, Duration: 30 day, Stop date: 02/15/19 18:55:00 PHOTO MACHINE OPERATOR, 0 Glucagon 2018-03 No 1 mg, [facility] 1-16 Route: IM, l 00:56: Drug form: [place] 00 PDR/INJ, PRN, Dosing Weight 93.636, kg, PRN Blood Glucose Results, Start date: 01/16/19 18:56:00 PHOTO MACHINE OPERATOR, Duration: 30 day, Stop date: 02/15/19 18:55:00 PHOTO MACHINE OPERATOR, 0 Acetaminoph 2018-03 No Notes: Do Annika emoria en 03-19 not exceed l 00:56: 4 gm/day. [place] (Same as: Tylenol) Dextrose 2018-03 No 12.5 gm, [facility] 50% Syringe 1-16 25 mL, l 00:56: Route: [place] 00 IVP, Drug Form: INJ, Dosing Weight 93.636, kg, PRN, PRN Blood Glucose Results, Start date: 01/16/19 18:56:00 PHOTO MACHINE OPERATOR, Duration: 30 day, Stop date: 02/15/19 18:55:00 PHOTO MACHINE OPERATOR, 0 Glucagon 2018-03 No 1 mg, [facility] 1-16 Route: IM, l 00:56: Drug form: [place] 00 PDR/INJ, PRN, Dosing Weight 93.636, kg, PRN Blood Glucose Results, Start date: 01/16/19 18:56:00 PHOTO MACHINE OPERATOR, Duration: 30 day, Stop date: 02/15/19 18:55:00 PHOTO MACHINE OPERATOR, 0 Acetaminoph 2018-03 No Notes: Do Annika restreporia en 03-19 not exceed l 00:56: 4 gm/day. [place] (Same as: Tylenol) Dextrose 2018-03 No 12.5 gm, [facility] 50% Syringe 1-16 25 mL, l 00:56: Route: [place] 00 IVP, Drug Form: INJ, Dosing Weight 93.636, kg, PRN, PRN Blood Glucose Results, Start date: 01/16/19 18:56:00 PHOTO MACHINE OPERATOR, Duration: 30 day, Stop date: 02/15/19 18:55:00 PHOTO MACHINE OPERATOR, 0 Glucagon 2018-03 No 1 mg, [facility] 1-16 Route: IM, l 00:56: Drug form: [place] 00 PDR/INJ, PRN, Dosing Weight 93.636, kg, PRN Blood Glucose Results, Start date: 01/16/19 18:56:00 PHOTO MACHINE OPERATOR, Duration: 30 day, Stop date: 02/15/19 18:55:00 PHOTO MACHINE OPERATOR, 0 Acetaminoph 2018-03 No Notes: Do M emoria en -16 not exceed l 00:56: 4 gm/day. [place] (Same as: Tylenol) Dextrose 2018-03 No 12.5 gm, [facility] 50% Syringe 1-16 25 mL, l 00:56: Route: [place] 00 IVP, Drug Form: INJ, Dosing Weight 93.636, kg, PRN, PRN Blood Glucose Results, Start date: 01/16/19 18:56:00 PHOTO MACHINE OPERATOR, Duration: 30 day, Stop date: 02/15/19 18:55:00 PHOTO MACHINE OPERATOR, 0 Glucagon 2018- No 1 mg, [facility] 1-16 Route: IM, l 00:56: Drug form: [place] 00 PDR/INJ, PRN, Dosing Weight 93.636, kg, PRN Blood Glucose Results, Start date: 01/16/19 18:56:00 PHOTO MACHINE OPERATOR, Duration: 30 day, Stop date: 02/15/19 18:55:00 PHOTO MACHINE OPERATOR, 0 Acetaminoph 2018-03 No Notes: Do Annika emoria en 16 not exceed l 00:56: 4 gm/day. [place] (Same as: Tylenol) Dextrose 2018-03 No 12.5 gm, [facility] 50% Syringe 1-16 25 mL, l 00:56: Route: [place] 00 IVP, Drug Form: INJ, Dosing Weight 93.636, kg, PRN, PRN Blood Glucose Results, Start date: 01/16/19 18:56:00 PHOTO MACHINE OPERATOR, Duration: 30 day, Stop date: 02/15/19 18:55:00 PHOTO MACHINE OPERATOR, 0 Glucagon 2018-03 No 1 mg, [facility] 1-16 Route: IM, l 00:56: Drug form: [place] 00 PDR/INJ, PRN, Dosing Weight 93.636, kg, PRN Blood Glucose Results, Start date: 01/16/19 18:56:00 PHOTO MACHINE OPERATOR, Duration: 30 day, Stop date: 02/15/19 18:55:00 PHOTO MACHINE OPERATOR, 0 Acetaminoph 2018-03 No Notes: Do M emoria en -16 not exceed l 00:56: 4 gm/day. [place] 00 (Same as: Tylenol) Dextrose 2018-03 No 12.5 gm, [facility] 50% Syringe 1-16 25 mL, l 00:56: Route: [place] 00 IVP, Drug Form: INJ, Dosing Weight 93.636, kg, PRN, PRN Blood Glucose Results, Start date: 01/16/19 18:56:00 PHOTO MACHINE OPERATOR, Duration: 30 day, Stop date: 02/15/19 18:55:00 PHOTO MACHINE OPERATOR, 0 Glucagon 2018-03 No 1 mg, [facility] 1-16 Route: IM, l 00:56: Drug form: [place] 00 PDR/INJ, PRN, Dosing Weight 93.636, kg, PRN Blood Glucose Results, Start date: 01/16/19 18:56:00 PHOTO MACHINE OPERATOR, Duration: 30 day, Stop date: 02/15/19 18:55:00 PHOTO MACHINE OPERATOR, 0 Acetaminoph 2018-03 No Notes: Do M emoria en 03-19 not exceed l 00:56: 4 gm/day. [place] 00 (Same as: Tylenol) Dextrose 2018-03 No 12.5 gm, [facility] 50% Syringe 1-16 25 mL, l 00:56: Route: [place] IVP, Drug Form: INJ, Dosing Weight 93.636, kg, PRN, PRN Blood Glucose Results, Start date: 01/16/19 18:56:00 PHOTO MACHINE OPERATOR, Duration: 30 day, Stop date: 02/15/19 18:55:00 PHOTO MACHINE OPERATOR, 0 Glucagon 2018-03 No 1 mg, [facility] 1-16 Route: IM, l 00:56: Drug form: [place] 00 PDR/INJ, PRN, Dosing Weight 93.636, kg, PRN Blood Glucose Results, Start date: 01/16/19 18:56:00 PHOTO MACHINE OPERATOR, Duration: 30 day, Stop date: 02/15/19 18:55:00 PHOTO MACHINE OPERATOR, 0 Acetaminoph 2018-03 No Notes: Do M emoria en 03-19 not exceed l 00:56: 4 gm/day. [place] (Same as: Tylenol) Dextrose 2018-03 No 12.5 gm, [facility] 50% Syringe 1-16 25 mL, l 00:56: Route: [place] 00 IVP, Drug Form: INJ, Dosing Weight 93.636, kg, PRN, PRN Blood Glucose Results, Start date: 01/16/19 18:56:00 PHOTO MACHINE OPERATOR, Duration: 30 day, Stop date: 02/15/19 18:55:00 PHOTO MACHINE OPERATOR, 0 Glucagon 2018-03 No 1 mg, [facility] 1-16 Route: IM, l 00:56: Drug form: [place] 00 PDR/INJ, PRN, Dosing Weight 93.636, kg, PRN Blood Glucose Results, Start date: 01/16/19 18:56:00 PHOTO MACHINE OPERATOR, Duration: 30 day, Stop date: 02/15/19 18:55:00 PHOTO MACHINE OPERATOR, 0 Acetaminoph 2018-03 No Notes: Do M emoria en 1-16 not exceed l 00:56: 4 gm/day. [place] 00 (Same as: Tylenol) Tramadol 2018-03 No Notes: Not Mem oria 1-16 to exceed l 00:03: 400mg/day. [place] 00 (Same As: Ultram) Tramadol 2018-03 No Notes: Not Mem oria 1-16 to exceed l 00:03: 400mg/day. [place] 00 (Same As: Ultram) Tramadol 2018-03 No Notes: Not Mem oria 1-16 to exceed l 00:03: 400mg/day. [place] 00 (Same As: Ultram) Tramadol 2018-03 No Notes: Not Mem oria 1-16 to exceed l 00:03: 400mg/day. [place] 00 (Same As: Ultram) Tramadol 2018-03 No Notes: Not Mem oria 1-16 to exceed l 00:03: 400mg/day. [place] 00 (Same As: Ultram) Tramadol 2018-03 No Notes: Not Mem oria 1-16 to exceed l 00:03: 400mg/day. [place] 00 (Same As: Ultram) Tramadol 2018-03 No Notes: Not Mem oria 1-16 to exceed l 00:03: 400mg/day. [place] 00 (Same As: Ultram) Tramadol 2018-03 No Notes: Not Mem oria 1-16 to exceed l 00:03: 400mg/day. [place] 00 (Same As: Ultram) Acetaminoph 2018-03 No Notes: Max Memoria en 1-15 acetaminop l 22:54: hen 4000 [place] 00 mg/day (4 gm/day). (Same as: Tylenol Extra Strength) Acetaminoph 2018-03 No Notes: Max Memoria en 1-15 acetaminop l 22:54: hen 4000 [place] 00 mg/day (4 gm/day). (Same as: Tylenol Extra Strength) Acetaminoph 2018-03 No Notes: Max Memoria en 1-15 acetaminop l 22:54: hen 4000 [place] 00 mg/day (4 gm/day). (Same as: Tylenol Extra Strength) Acetaminoph 2018-03 No Notes: Max Memoria en 1-15 acetaminop l 22:54: hen 4000 [place] 00 mg/day (4 gm/day). (Same as: Tylenol [...] en 1-15 acetaminop l 22:54: hen 4000 [place] 00 mg/day (4 gm/day). (Same as: Tylenol Extra Strength) Albuterol 2018-03 No Notes: Memori a 0.833 MG/ML 1-15 (Same as: l / 21:21: Duoneb) [place] Ipratropium 00 [place] 0.167 MG/ML Inhalant Solution Prednisone 2018-03 No Notes: Memor ia 1-15 Take with l 21:21: food. [place] 00 Albuterol 2018-03 No Notes: Memori a 0.833 MG/ML 1-15 (Same as: l / 21:21: Duoneb) [place] Ipratropium 00 [place] 0.167 MG/ML Inhalant Solution Prednisone 2018-03 No Notes: Memor ia 1-15 Take with l 21:21: food. [place] 00 Albuterol 2018-03 No Notes: Memori a 0.833 MG/ML 1-15 (Same as: l / 21:21: Duoneb) [place] Ipratropium 00 [place] 0.167 MG/ML Inhalant Solution Prednisone 2018-03 No Notes: Memor ia 1-15 Take with l 21:21: food. Albuterol 2018-03 No Notes: Memori a 0.833 MG/ML 1-15 (Same as: l / 21:21: Duoneb) [place] Ipratropium 00 [place] 0.167 MG/ML Inhalant Solution Prednisone 2018-03 No Notes: Memor ia 1-15 Take with l 21:21: food. Albuterol 2018-03 No Notes: Memori a 0.833 MG/ML 1-15 (Same as: l / 21:21: Duoneb) [place] Ipratropium 00 [place] 0.167 MG/ML Inhalant Solution Prednisone 2018-03 No Notes: Memor ia 1-15 Take with l 21:21: food. Albuterol 2018-03 No Notes: Memori a 0.833 MG/ML 1-15 (Same as: l / 21:21: Duoneb) [place] Ipratropium 00 [place] 0.167 MG/ML Inhalant Solution Prednisone 2018-03 No Notes: Memor ia 1-15 Take with l 21:21: food. Albuterol 2018-03 No Notes: Memori a 0.833 MG/ML 1-15 (Same as: l / 21:21: Duoneb) [place] Ipratropium 00 [place] 0.167 MG/ML Inhalant Solution Prednisone 2018-03 No Notes: Memor ia 1-15 Take with l 21:21: food. Albuterol 2018-03 No Notes: Memori a 0.833 MG/ML 1-15 (Same as: l / 21:21: Duoneb) [place] Ipratropium 00 [place] 0.167 MG/ML Inhalant Solution Prednisone 2018-03 No Notes: Memor ia 1-15 Take with l 21:21: food. Saline 2018-03 No Notes: Memoria Flush 0.9% 1-15 (Same as: l 20:25: BD [place] 00 Posiflush) Saline 2018-03 No Notes: [facility] Flush 0.9% 1-15 (Same as: l 20:25: BD [place] 00 Posiflush) Saline 2018-03 No Notes: [facility] Flush 0.9% 1-15 (Same as: l 20:25: BD [place] 00 Posiflush) Saline 2018-03 No Notes: [facility] Flush 0.9% 1-15 (Same as: l 20:25: BD [place] 00 Posiflush) Saline 2018-03 No Notes: [facility] Flush 0.9% 1-15 (Same as: l 20:25: BD [place] 00 Posiflush) Saline 2018-03 No Notes: [facility] Flush 0.9% 1-15 (Same as: l 20:25: BD [place] 00 Posiflush) Saline 2018-03 No Notes: [facility] Flush 0.9% 1-15 (Same as: l 20:25: BD [place] 00 Posiflush) Saline 2018-03 No Notes: [facility] Flush 0.9% 1-15 (Same as: l 20:25: BD [place] 00 Posiflush) baclofen 10 2018-03 2020- No [id number] 10mg Take 1 [facility] mg tablet 03-15 tablet by ity of 00:00: 00:00 mouth 3 [place] 00 :00 (three) [facility] times [facility] daily. lisinopril 2018-03 2020- No [id number] 5mg Take 1 [facility] 5 mg tablet 03-30 tablet by it y of 00:00: 00:00 mouth [place] 00 :00 daily. [facility] allopurinol 2020- No [id number] 100mg Take 1 [facility] 100 mg 11-1918 tablet by ity of tablet 00:00: 00:00 mouth [place] 00 :00 daily. [facility] atorvastati 2020- No [id number] 20mg Take 1 [facility] n 20 mg 08-01- tablet by ity of tablet 00:00: 00:00 mouth at [place] 00 :00 bedtime. [facility] amLODIPine 2020- No [id number] 5mg Take 1 [facility] (NORVASC) 5 08-01-05 tablet by it y of mg tablet 00:00: 00:00 mouth [place] 00 :00 daily. [facility] methocarbam 2020- No [id number] 500mg Take 1 [facility] ol 500 mg 07-07 tablet by ity of tablet 00:00: 00:00 mouth 3 [place] 00 :00 (three) [facility] times [facility] daily as needed (muscle spasm/pain ). Lancets 2017- Yes [id number] Use as [facility] vers Misc 0-04 directed ity of 00:00: [place] 00 [facility] Lancets 2017- Yes [id number] Use as [facility] vers Misc 0-04 directed ity of 00:00: [place] [facility] Lancets 2017- Yes [id number] Use as Uni vers Misc 0-04 directed ity of 00:00: [place] [facility] Lancets 2017- Yes [id number] Use as Uni vers Misc 0-04 directed ity of 00:00: [place] [facility] Lancets 2017- Yes [id number] Use as Uni vers Misc 0-04 directed ity of 00:00: [place] [facility] Lancets 2017- Yes [id number] Use as Uni vers Misc 0-04 directed ity of 00:00: [place] [facility] Lancets 2017- Yes [id number] Use as Uni vers Misc 0-04 directed ity of 00:00: [place] 00 [facility] Lancets 2017- Yes [id number] Use as Uni vers Misc 0-04 directed ity of 00:00: [place] [facility] Lancets 2017- Yes [id number] Use as Uni vers Misc 0-04 directed ity of 00:00: [place] [facility] Lancets 2017- Yes [id number] Use as Uni vers Misc 0-04 directed ity of 00:00: [place] [facility] Lancets 2017- Yes [id number] Use as Uni vers Misc 0-04 directed ity of 00:00: [place] 00 [facility] Lancets 2017- Yes [id number] Use as Uni vers Misc 0-04 directed ity of 00:00: [place] 00 [facility] Lancets 2017- Yes [id number] Use as Uni vers Misc 0-04 directed ity of 00:00: [place] 00 [facility] Lancets 2017- Yes [id number] Use as Uni vers Misc 0-04 directed ity of 00:00: [place] 00 [facility] Lancets 2017- Yes [id number] Use as Uni vers Misc 0-04 directed ity of 00:00: [place] 00 [facility] Lancets 2017- Yes [id number] Use as Uni vers Misc 0-04 directed ity of 00:00: [place] [facility] Lancets 2017- Yes [id number] Use as [facility] Misc 0-04 directed ity of 00:00: [place] [facility] Lancets 2017- Yes [id number] Use as [facility] Misc 0-04 directed ity of 00:00: [place] [facility] Lancets 2017- Yes [id number] Use as [facility] Misc 0-04 directed ity of 00:00: [place] [facility] Lancets 2017- Yes [id number] Use as [facility] Misc 0-04 directed ity of 00:00: [place] [facility] Lancets 2017- Yes [id number] Use as [facility] Misc 0-04 directed ity of 00:00: [place] [facility] Lancets 2017- Yes [id number] Use as [facility] Misc 0-04 directed ity of 00:00: [place] [facility] Lancets 2017- Yes [id number] Use as [facility] Misc 0-04 directed ity of 00:00: [place] [facility] Lancets 2017- Yes [id number] Use as [facility] Misc 0-04 directed ity of 00:00: [place] [facility] Lancets 2017- Yes [id number] Use as [facility] Misc 0-04 directed ity of 00:00: [place] [facility] Lancets 2017- Yes [id number] Use as [facility] Misc 0-04 directed ity of 00:00: [place] [facility] Lancets 2017- Yes [id number] Use as [facility] Misc 0-04 directed ity of 00:00: [place] [facility] Lancets 2017- Yes [id number] Use as [facility] Misc 0-04 directed ity of 00:00: [place] [facility] Lancets 2017- Yes [id number] Use as [facility] Misc 0-04 directed ity of 00:00: [place] [facility] Lancets 2017- Yes [id number] Use as [facility] Misc 0-04 directed ity of 00:00: [place] [facility] Lancets 2017-1 Yes [id number] Use as [facility] Misc 0-04 directed ity of 00:00: [place] 00 [facility] Lancets 2017-1 Yes [id number] Use as [facility] Misc 0-04 directed ity of 00:00: [place] [facility] Lancets 2017-1 Yes [id number] Use as [facility] Misc 0-04 directed ity of 00:00: [place] [facility] Lancets 2017-1 Yes [id number] Use as [facility] Misc 0-04 directed ity of 00:00: [facility] Lancets 2017-1 Yes [id number] Use as Uni vers Misc 0-04 directed ity of 00:00: [facility] 2017-1 Yes [id number] Use as [facility] vers Misc 0-04 directed ity of 00:00: [facility] 2017-1 Yes [id number] Use as Uni vers Misc 0-04 directed ity of 00:00: [facility] 2017-1 Yes [id number] Use as Uni vers Misc 0-04 directed ity of 00:00: [facility] 2017-1 Yes [id number] Use as [facility] vers Misc 0-04 directed ity of 00:00: [facility] 2017-1 Yes [id number] Use as [facility] vers Misc 0-04 directed ity of 00:00: [facility] 2017-1 Yes [id number] Use as [facility] vers Misc 0-04 directed ity of 00:00: [facility] 2017-1 Yes [id number] Use as [facility] vers Misc 0-04 directed ity of 00:00: [facility] 2017-1 Yes [id number] Use as [facility] vers Misc 0-04 directed ity of 00:00: [facility] 2017-1 Yes [id number] Use as [facility] vers Misc 0-04 directed ity of 00:00: [facility] 2017-1 Yes [id number] Use as Uni vers Misc 0-04 directed ity of 00:00: [facility] 2017-1 Yes [id number] Use as [facility] vers Misc 0-04 directed ity of 00:00: [facility] Lanc[facility] 2017-1 Yes [id number] Use as Uni vers Misc 0-04 directed ity of 00:00: [facility] Lancets 2017-1 Yes [id number] Use as Uni vers Misc 0-04 directed ity of 00:00: [facility] Lancets 2017-1 Yes [id number] Use as Uni vers Misc 0-04 directed ity of 00:00: [facility] Lancets 2017-1 Yes [id number] Use as [facility] vers Misc 0-04 directed ity of 00:00: [facility] Lancets 2017-1 Yes [id number] Use as [facility] vers Misc 0-04 directed ity of 00:00: [facility] 2017-1 Yes [id number] Use as [facility] vers Misc 0-04 directed ity of 00:00: [facility] 2017-1 Yes [id number] Use as Uni vers Misc 0-04 directed ity of 00:00: [facility] 2017-1 Yes [id number] Use as Uni vers Misc 0-04 directed ity of 00:00: [facility] 2017-1 Yes [id number] Use as Uni vers Misc 0-04 directed ity of 00:00: [facility] 2017-1 Yes [id number] Use as [facility] vers Misc 0-04 directed ity of 00:00: [facility] 2017-1 Yes [id number] Use as Uni vers Misc 0-04 directed ity of 00:00: [facility] 2017-1 Yes [id number] Use as [facility] vers Misc 0-04 directed ity of 00:00: [facility] 2017-1 Yes [id number] Use as [facility] vers Misc 0-04 directed ity of 00:00: [facility] 2017-1 Yes [id number] Use as [facility] vers Misc 0-04 directed ity of 00:00: [facility] Lanc[facility] 2017-1 Yes [id number] Use as Uni vers Misc 0-04 directed ity of 00:00: [facility] Lancets 2017-1 Yes [id number] Use as [facility] vers Misc 0-04 directed ity of 00:00: [facility] Lancets 2017-1 Yes [id number] Use as Uni vers Misc 0-04 directed ity of 00:00: [facility] Lancets 2017-1 Yes [id number] Use as Uni vers Misc 0-04 directed ity of 00:00: [facility] Lancets 2017-1 Yes [id number] Use as Uni vers Misc 0-04 directed ity of 00:00: [facility] 2017-1 Yes [id number] Use as [facility] vers Misc 0-04 directed ity of 00:00: [facility] Lancets 2017-1 Yes [id number] Use as [facility] vers Misc 0-04 directed ity of 00:00: [facility] 2017-1 Yes [id number] Use as [facility] vers Misc 0-04 directed ity of 00:00: [facility] 2017-1 Yes [id number] Use as [facility] vers Misc 0-04 directed ity of 00:00: [facility] 2017-1 Yes [id number] Use as [facility] vers Misc 0-04 directed ity of 00:00: [facility] 2017-1 Yes [id number] Use as [facility] vers Misc 0-04 directed ity of 00:00: [facility] 2017-1 Yes [id number] Use as Uni vers Misc 0-04 directed ity of 00:00: [facility] 2017-1 Yes [id number] Use as Uni vers Misc 0-04 directed ity of 00:00: [facility] 2017-1 Yes [id number] Use as [facility] vers Misc 0-04 directed ity of 00:00: [facility] 2017-1 Yes [id number] Use as [facility] vers Misc 0-04 directed ity of 00:00: [facility] 2017-1 Yes [id number] Use as [facility] vers Misc 0-04 directed ity of 00:00: [facility] Lanc[facility] 2017-1 Yes [id number] Use as [facility] vers Misc 0-04 directed ity of 00:00: [facility] Lanc[facility] 2017-1 Yes [id number] Use as [facility] vers Misc 0-04 directed ity of 00:00: [facility] Lancets 2017-1 Yes [id number] Use as Uni vers Misc 0-04 directed ity of 00:00: [facility] Lanc[facility] 2017-1 Yes [id number] Use as [facility] vers Misc 0-04 directed ity of 00:00: [facility] Lancets 2017-1 Yes [id number] Use as Uni vers Misc 0-04 directed ity of 00:00: [facility] Lanc[facility] 2017-1 Yes [id number] Use as Uni vers Misc 0-04 directed ity of 00:00: [facility] Lanc[facility] 2017-1 Yes [id number] Use as Uni vers Misc 0-04 directed ity of 00:00: [facility] 2017-1 Yes [id number] Use as Uni vers Misc 0-04 directed ity of 00:00: [facility] 2017-1 Yes [id number] Use as Uni vers Misc 0-04 directed ity of 00:00: [facility] 2017-1 Yes [id number] Use as Uni vers Misc 0-04 directed ity of 00:00: [facility] Lanc[facility] 2017-1 Yes [id number] Use as Uni vers Misc 0-04 directed ity of 00:00: [facility] 2017-1 Yes [id number] Use as Uni vers Misc 0-04 directed ity of 00:00: [facility] 2017-1 Yes [id number] Use as Uni vers Misc 0-04 directed ity of 00:00: [facility] 2017-1 Yes [id number] Use as Uni vers Misc 0-04 directed ity of 00:00: [facility] Lanc[facility] 2017-1 Yes [id number] Use as Uni vers Misc 0-04 directed ity of 00:00: [facility] 2017-1 Yes [id number] Use as Uni vers Misc 0-04 directed ity of 00:00: [facility] 2017-1 Yes [id number] Use as [facility] vers Misc 0-04 directed ity of 00:00: [facility] 2017-1 Yes [id number] Use as [facility] vers Misc 0-04 directed ity of 00:00: [facility] 2017-1 Yes [id number] Use as [facility] vers Misc 0-04 directed ity of 00:00: [facility] Lanc[facility] 2017-1 Yes [id number] Use as Uni vers Misc 0-04 directed ity of 00:00: [facility] 2017-1 Yes [id number] Use as Uni vers Misc 0-04 directed ity of 00:00: [facility] 2017-1 Yes [id number] Use as Uni vers Misc 0-04 directed ity of 00:00: [facility] 2017-1 Yes [id number] Use as Uni vers Misc 0-04 directed ity of 00:00: [facility] 2017-1 Yes [id number] Use as Uni vers Misc 0-04 directed ity of 00:00: [facility] 2017-1 Yes [id number] Use as Uni vers Misc 0-04 directed ity of 00:00: [facility] 2017-1 Yes [id number] Use as Uni vers Misc 0-04 directed ity of 00:00: [facility] 2017-1 Yes [id number] Use as [facility] vers Misc 0-04 directed ity of 00:00: [facility] 2017-1 Yes [id number] Use as Uni vers Misc 0-04 directed ity of 00:00: [facility] 2017-1 Yes [id number] Use as Uni vers Misc 0-04 directed ity of 00:00: [facility] Lanc[facility] 2017-1 Yes [id number] Use as Uni vers Misc 0-04 directed ity of 00:00: [facility] 2017-1 Yes [id number] Use as Uni vers Misc 0-04 directed ity of 00:00: [facility] 2017-1 Yes [id number] Use as Uni vers Misc 0-04 directed ity of 00:00: [facility] 2017-1 Yes [id number] Use as Uni vers Misc 0-04 directed ity of 00:00: [facility] 2017-1 Yes [id number] Use as Uni vers Misc 0-04 directed ity of 00:00: [facility] 2017-1 Yes [id number] Use as Uni vers Misc 0-04 directed ity of 00:00: [facility] 2017-1 Yes [id number] Use as Uni vers Misc 0-04 directed ity of 00:00: [facility] 2017-1 Yes [id number] Use as Uni vers Misc 0-04 directed ity of 00:00: [facility] 2017-1 Yes [id number] Use as Uni vers Misc 0-04 directed ity of 00:00: [facility] 2017-1 Yes [id number] Use as Uni vers Misc 0-04 directed ity of 00:00: [facility] 2017- Yes [id number] Use as Uni vers Misc 0-04 directed ity of 00:00: [facility] 2017-1 Yes [id number] Use as Uni vers Misc 0-04 directed ity of 00:00: [facility] Lancets 2017- Yes [id number] Use as Uni vers Misc 0-04 directed ity of 00:00: [facility] 2017-1 Yes [id number] Use as Uni vers Misc 0-04 directed ity of 00:00: [facility] 2017- Yes [id number] Use as Uni vers Misc 0-04 directed ity of 00:00: [facility] 2017-1 Yes [id number] Use as Uni vers Misc 0-04 directed ity of 00:00: [facility] 2017-1 Yes [id number] Use as Uni vers Misc 0-04 directed ity of 00:00: [facility] 2017-1 Yes [id number] Use as Uni vers Misc 0-04 directed ity of 00:00: [facility] 2017-1 Yes [id number] Use as Uni vers Misc 0-04 directed ity of 00:00: [facility] 2017-1 Yes [id number] Use as Uni vers Misc 0-04 directed ity of 00:00: [facility] 2017-1 Yes [id number] Use as Uni vers Misc 0-04 directed ity of 00:00: [facility] 2017-1 Yes [id number] Use as Uni vers Misc 0-04 directed ity of 00:00: [facility] Lanc[facility] 2017-1 Yes [id number] Use as Uni vers Misc 0-04 directed ity of 00:00: [facility] 2017-1 Yes [id number] Use as Uni vers Misc 0-04 directed ity of 00:00: [facility] 2017-1 Yes [id number] Use as Uni vers Misc 0-04 directed ity of 00:00: [facility] 2017-1 Yes [id number] Use as Uni vers Misc 0-04 directed ity of 00:00: [facility] Lanc[facility] 2017-1 Yes [id number] Use as Uni vers Misc 0-04 directed ity of 00:00: [facility] Lanc[facility] 2017-1 Yes [id number] Use as Uni vers Misc 0-04 directed ity of 00:00: [facility] Lancets 2017- Yes [id number] Use as Uni vers Misc 0-04 directed ity of 00:00: [facility] Lanc[facility] 2017-1 Yes [id number] Use as Uni vers Misc 0-04 directed ity of 00:00: [facility] Lanc[facility] 2017-1 Yes [id number] Use as Uni vers Misc 0-04 directed ity of 00:00: [facility] Lanc[facility] 2017-1 Yes [id number] Use as Uni vers Misc 0-04 directed ity of 00:00: [facility] Lanc[facility] 2017-1 Yes [id number] Use as Uni vers Misc 0-04 directed ity of 00:00: [facility] 2017-1 Yes [id number] Use as Uni vers Misc 0-04 directed ity of 00:00: [facility] 2017-1 Yes [id number] Use as Uni vers Misc 0-04 directed ity of 00:00: [facility] 2017-1 Yes [id number] Use as Uni vers Misc 0-04 directed ity of 00:00: [facility] 2017-1 Yes [id number] Use as Uni vers Misc 0-04 directed ity of 00:00: [facility] 2017-1 Yes [id number] Use as Uni vers Misc 0-04 directed ity of 00:00: [facility] Lancets 2017-1 Yes [id number] Use as Uni vers Misc 0-04 directed ity of 00:00: [facility] Lancets 2017-1 Yes [id number] Use as Uni vers Misc 0-04 directed ity of 00:00: [facility] Lancets 2017-1 Yes [id number] Use as Uni vers Misc 0-04 directed ity of 00:00: [facility] Lanc[facility] 2017-1 Yes [id number] Use as Uni vers Misc 0-04 directed ity of 00:00: [facility] Lancets 2017-1 Yes [id number] Use as Uni vers Misc 0-04 directed ity of 00:00: [facility] Lancets 2017- Yes [id number] Use as Uni vers Misc 0-04 directed ity of 00:00: [facility] Lancets 2017-1 Yes [id number] Use as Uni vers Misc 0-04 directed ity of 00:00: [facility] Lancets 2017-1 Yes [id number] Use as Uni vers Misc 0-04 directed ity of 00:00: [facility] Lancets 2017-1 Yes [id number] Use as Uni vers Misc 0-04 directed ity of 00:00: [facility] Lancets 2017-1 Yes [id number] Use as Uni vers Misc 0-04 directed ity of 00:00: [facility] Lanc[facility] 2017-1 Yes [id number] Use as Uni vers Misc 0-04 directed ity of 00:00: [facility] Lancets 2017-1 Yes [id number] Use as Uni vers Misc 0-04 directed ity of 00:00: [facility] Lancets 2017-1 Yes [id number] Use as Uni vers Misc 0-04 directed ity of 00:00: [facility] Lancets 2017-1 Yes [id number] Use as Uni vers Misc 0-04 directed ity of 00:00: [facility] Lancets 2017-1 Yes [id number] Use as Uni vers Misc 0-04 directed ity of 00:00: [facility] Lancets 2017-1 Yes [id number] Use as Uni vers Misc 0-04 directed ity of 00:00: [facility] Sodium 2016-0 No 1,000 mL, Memori a Chloride 7-20 Rate: 25 l 0.154 13:42: ml/hr, [place] MEQ/ML 00 Infuse Injectable over: 40 Solution hr, Route: IV, Dosing Weight 89.205 kg, Total Volume: 1,000, Start date: 09/21/15 8:42:00 CDT, Duration: 1 day, Stop date: 09/22/15 8:41:00 CDT Sodium 2016-0 No 1,000 mL, Mem[facility] a Chloride 7-20 Rate: 25 l 0.154 13:42: ml/hr, [place] MEQ/ML 00 Infuse Injectable over: 40 Solution [...] 7-20 Rate: 25 l 0.154 13:42: ml/hr, [place] MEQ/ML 00 Infuse Injectable over: 40 Solution hr, Route: IV, Dosing Weight 89.205 kg, Total Volume: 1,000, Start date: 09/21/15 8:42:00 CDT, Duration: 1 day, Stop date: 09/22/15 8:41:00 CDT Sodium 2016-0 No 1,000 mL, Mem[facility] a Chloride 7-20 Rate: 25 l 0.154 13:42: ml/hr, [place] MEQ/ML 00 Infuse Injectable over: 40 Solution [...] 7-20 Rate: 25 l 0.154 13:42: ml/hr, [place] MEQ/ML 00 Infuse Injectable over: 40 Solution [...] tab, PO, l tablet 13:07: Daily, # [place] 00 30 tab, 0 Refill(s) lisinopril 2016-0 Yes 20 mg = 1 [facility] [place] 20 mg oral 5-18 tab, PO, l tablet 13:07: Daily, # [place] 00 30 tab, 0 Refill(s) lisinopril 2016-0 Yes 20 mg = 1 [facility] [place] 20 mg oral 5-18 tab, PO, l tablet 13:07: Daily, # [place] 00 30 tab, 0 Refill(s) lisinopril 2016-0 Yes 20 mg = 1 [facility] [place] 20 mg oral 5-18 tab, PO, l tablet 13:07: Daily, # [place] 00 30 tab, 0 Refill(s) lisinopril 2016-0 Yes 20 mg = 1 [facility] [place] 20 mg oral 5-18 tab, PO, l tablet 13:07: Daily, # [place] 00 30 tab, 0 Refill(s) lisinopril 2016-0 Yes 20 mg = 1 [facility] [place] 20 mg oral 5-18 tab, PO, l tablet 13:07: Daily, # [place] 00 30 tab, 0 Refill(s) lisinopril 2016-0 Yes 20 mg = 1 [facility] [place] 20 mg oral 5-18 tab, PO, l tablet 13:07: Daily, # [place] 00 30 tab, 0 Refill(s) lisinopril 2016-0 Yes 20 mg = 1 [facility] [place] 20 mg oral 5-18 tab, PO, l tablet 13:07: Daily, # [place] 00 30 tab, 0 Refill(s) Immunizations Ordered [...] Completed Unive [facility] of PFIZER VACCINE 00:00:00 [facility] SARS-COV-2 COVID-19 2020-04-28 Completed Un[facility] of PFIZER VACCINE 00:00:00 [facility] SARS-COV-2 COVID-19 2020-04-28 Completed [facility] of PFIZER VACCINE 00:00:00 [facility] SARS-COV-2 COVID-19 2020-04-28 Completed [facility] of PFIZER VACCINE 00:00:00 [facility] SARS-COV-2 COVID-19 2020-04-28 Completed [facility] of PFIZER VACCINE 00:00:00 [facility] SARS-COV-2 COVID-19 2020-04-28 Completed [facility] of PFIZER VACCINE 00:00:00 [facility] SARS-COV-2 COVID-19 2020-04-28 Completed [facility] of PFIZER VACCINE 00:00:00 [facility] SARS-COV-2 COVID-19 2020-04-28 Completed [facility] of PFIZER VACCINE 00:00:00 [facility] SARS-COV-2 COVID-19 2020-04-28 Completed [facility] of PFIZER VACCINE 00:00:00 [facility] SARS-COV-2 COVID-19 2020-04-28 Completed [facility] of PFIZER VACCINE 00:00:00 [facility] SARS-COV-2 COVID-19 2020-04-28 Completed [facility] of PFIZER VACCINE 00:00:00 [facility] SARS-COV-2 COVID-19 2020-04-28 Completed [facility] of PFIZER VACCINE 00:00:00 [facility] SARS-COV-2 COVID-19 2020-04-28 Completed [facility] of PFIZER VACCINE 00:00:00 [facility] SARS-COV-2 COVID-19 2020-04-28 Completed [facility] of PFIZER VACCINE 00:00:00 [facility] SARS-COV-2 COVID-19 2020-04-28 Completed [facility] of PFIZER VACCINE 00:00:00 [facility] SARS-COV-2 COVID-19 2020-04-28 Completed [facility] of PFIZER VACCINE 00:00:00 [facility] SARS-COV-2 COVID-19 2020-04-28 Completed [facility] of PFIZER VACCINE 00:00:00 [facility] SARS-COV-2 COVID-19 2020-04-28 Completed [facility] of PFIZER VACCINE 00:00:00 [facility] SARS-COV-2 COVID-19 2020-04-28 Completed [facility] of PFIZER VACCINE 00:00:00 [facility] SARS-COV-2 COVID-19 2020-04-28 Completed [facility] of PFIZER VACCINE 00:00:00 [facility] SARS-COV-2 COVID-19 2020-04-28 Completed [facility] of PFIZER VACCINE 00:00:00 [facility] SARS-COV-2 COVID-19 2020-04-28 Completed [facility] of PFIZER VACCINE 00:00:00 [facility] SARS-COV-2 COVID-19 2020-04-28 Completed [facility] of PFIZER VACCINE 00:00:00 [facility] SARS-COV-2 COVID-19 2020-04-28 Completed [facility] of PFIZER VACCINE 00:00:00 [facility] SARS-COV-2 COVID-19 2020-04-28 Completed [facility] of PFIZER VACCINE 00:00:00 [facility] SARS-COV-2 COVID-19 2020-04-28 Completed [facility] of PFIZER VACCINE 00:00:00 [facility] SARS-COV-2 COVID-19 2020-04-28 Completed [facility] of PFIZER VACCINE 00:00:00 [facility] SARS-COV-2 COVID-19 2020-04-28 Completed [facility] of PFIZER VACCINE 00:00:00 [facility] SARS-COV-2 COVID-19 2020-04-28 Completed [facility] of PFIZER VACCINE 00:00:00 [facility] SARS-COV-2 COVID-19 2020-04-28 Completed [facility] of PFIZER VACCINE 00:00:00 [facility] SARS-COV-2 COVID-19 2020-04-28 Completed [facility] of PFIZER VACCINE 00:00:00 [facility] SARS-COV-2 COVID-19 2020-04-28 Completed [facility] of PFIZER VACCINE 00:00:00 [facility] SARS-COV-2 COVID-19 2020-04-28 Completed [facility] of PFIZER VACCINE 00:00:00 [facility] SARS-COV-2 COVID-19 2020-04-28 Completed [facility] of PFIZER VACCINE 00:00:00 [facility] SARS-COV-2 COVID-19 2020-04-28 Completed [facility] of PFIZER VACCINE 00:00:00 [facility] SARS-COV-2 COVID-19 2020-04-28 Completed [facility] of PFIZER VACCINE 00:00:00 [facility] SARS-COV-2 COVID-19 2020-04-28 Completed [facility] of PFIZER VACCINE 00:00:00 [facility] SARS-COV-2 COVID-19 2020-04-28 Completed [facility] of PFIZER VACCINE 00:00:00 [facility] SARS-COV-2 COVID-19 2020-04-28 Completed [facility] of PFIZER VACCINE 00:00:00 [facility] SARS-COV-2 COVID-19 2020-04-28 Completed [facility] of PFIZER VACCINE 00:00:00 [facility] SARS-COV-2 COVID-19 2020-04-28 Completed [facility] of PFIZER VACCINE 00:00:00 [facility] SARS-COV-2 COVID-19 2020-04-28 Completed [facility] of PFIZER VACCINE 00:00:00 [facility] SARS-COV-2 COVID-19 2020-04-28 Completed [facility] of PFIZER VACCINE 00:00:00 [facility] SARS-COV-2 COVID-19 2020-04-28 Completed [facility] of PFIZER VACCINE 00:00:00 [facility] SARS-COV-2 COVID-19 2020-04-28 Completed [facility] of PFIZER VACCINE 00:00:00 [facility] SARS-COV-2 COVID-19 2020-04-28 Completed [facility] of PFIZER VACCINE 00:00:00 [facility] SARS-COV-2 COVID-19 2020-04-28 Completed [facility] of PFIZER VACCINE 00:00:00 [facility] SARS-COV-2 COVID-19 2020-04-28 Completed [facility] of PFIZER VACCINE 00:00:00 [facility] SARS-COV-2 COVID-19 2020-04-28 Completed [facility] of PFIZER VACCINE 00:00:00 [facility] SARS-COV-2 COVID-19 2020-04-28 Completed [facility] of PFIZER VACCINE 00:00:00 [facility] SARS-COV-2 COVID-19 2020-04-28 Completed [facility] of PFIZER VACCINE 00:00:00 [facility] SARS-COV-2 COVID-19 2020-04-28 Completed [facility] of PFIZER VACCINE 00:00:00 [facility] SARS-COV-2 COVID-19 2020-04-28 Completed [facility] of PFIZER VACCINE 00:00:00 [facility] SARS-COV-2 COVID-19 2020-04-28 Completed [facility] of PFIZER VACCINE 00:00:00 [facility] SARS-COV-2 COVID-19 2020-04-28 Completed [facility] of PFIZER VACCINE 00:00:00 [facility] SARS-COV-2 COVID-19 2020-04-28 Completed [facility] of PFIZER VACCINE 00:00:00 [facility] SARS-COV-2 COVID-19 2020-04-28 Completed [facility] of PFIZER VACCINE 00:00:00 [facility] SARS-COV-2 COVID-19 2020-04-28 Completed [facility] of PFIZER VACCINE 00:00:00 [facility] SARS-COV-2 COVID-19 2020-04-28 Completed [facility] of PFIZER VACCINE 00:00:00 [facility] SARS-COV-2 COVID-19 2020-04-28 Completed [facility] of PFIZER VACCINE 00:00:00 [facility] SARS-COV-2 COVID-19 2020-04-28 Completed [facility] of PFIZER VACCINE 00:00:00 [facility] SARS-COV-2 COVID-19 2020-04-28 Completed [facility] of PFIZER VACCINE 00:00:00 [facility] SARS-COV-2 COVID-19 2020-04-28 Completed [facility] of PFIZER VACCINE 00:00:00 [facility] SARS-COV-2 COVID-19 2020-04-28 Completed [facility] of PFIZER VACCINE 00:00:00 [facility] SARS-COV-2 COVID-19 2020-04-28 Completed [facility] of PFIZER VACCINE 00:00:00 [facility] SARS-COV-2 COVID-19 2020-04-28 Completed [facility] of PFIZER VACCINE 00:00:00 [facility] SARS-COV-2 COVID-19 2020-04-28 Completed [facility] of PFIZER VACCINE 00:00:00 [facility] SARS-COV-2 COVID-19 2020-04-28 Completed [facility] of PFIZER VACCINE 00:00:00 [facility] SARS-COV-2 COVID-19 2020-04-28 Completed [facility] of PFIZER VACCINE 00:00:00 [facility] SARS-COV-2 COVID-19 2020-04-28 Completed [facility] of PFIZER VACCINE 00:00:00 [facility] SARS-COV-2 COVID-19 2020-04-28 Completed [facility] of PFIZER VACCINE 00:00:00 [facility] SARS-COV-2 COVID-19 2020-04-28 Completed [facility] of PFIZER VACCINE 00:00:00 [facility] SARS-COV-2 COVID-19 2020-04-28 Completed [facility] of PFIZER VACCINE 00:00:00 [facility] SARS-COV-2 COVID-19 2020-04-28 Completed [facility] of PFIZER VACCINE 00:00:00 [facility] SARS-COV-2 COVID-19 2020-04-28 Completed [facility] of PFIZER VACCINE 00:00:00 [facility] SARS-COV-2 COVID-19 2020-04-28 Completed [facility] of PFIZER VACCINE 00:00:00 [facility] SARS-COV-2 COVID-19 2020-04-28 Completed [facility] of PFIZER VACCINE 00:00:00 [facility] SARS-COV-2 COVID-19 2020-04-28 Completed [facility] of PFIZER VACCINE 00:00:00 [facility] SARS-COV-2 COVID-19 2020-04-28 Completed [facility] of PFIZER VACCINE 00:00:00 [facility] SARS-COV-2 COVID-19 2020-04-28 Completed [facility] of PFIZER VACCINE 00:00:00 [facility] SARS-COV-2 COVID-19 2020-04-28 Completed [facility] of PFIZER VACCINE 00:00:00 [facility] SARS-COV-2 COVID-19 2020-04-28 Completed [facility] of PFIZER VACCINE 00:00:00 [facility] SARS-COV-2 COVID-19 2020-04-28 Completed [facility] of PFIZER VACCINE 00:00:00 [facility] SARS-COV-2 COVID-19 2020-04-28 Completed [facility] of PFIZER VACCINE 00:00:00 [facility] SARS-COV-2 COVID-19 2020-04-28 Completed [facility] of PFIZER VACCINE 00:00:00 [facility] SARS-COV-2 COVID-19 2020-04-28 Completed [facility] of PFIZER VACCINE 00:00:00 [facility] SARS-COV-2 COVID-19 2020-04-28 Completed [facility] PFIZER VACCINE 00:00:00 [facility] SARS-COV-2 COVID-19 2020-04-28 Completed [facility] PFIZER VACCINE 00:00:00 [facility] SARS-COV-2 COVID-19 2020-04-28 Completed [facility] PFIZER VACCINE 00:00:00 [facility] SARS-COV-2 COVID-19 2020-04-28 Completed [facility] PFIZER VACCINE 00:00:00 [facility] SARS-COV-2 COVID-19 2020-04-28 Completed [facility] PFIZER VACCINE 00:00:00 [facility] SARS-COV-2 COVID-19 2020-04-28 Completed [facility] PFIZER VACCINE 00:00:00 [facility] SARS-COV-2 COVID-19 2020-04-28 Completed [facility] PFIZER VACCINE 00:00:00 [facility] SARS-COV-2 COVID-19 2020-04-28 Completed [facility] PFIZER VACCINE 00:00:00 [facility] SARS-COV-2 COVID-19 2020-04-28 Completed [facility] PFIZER VACCINE 00:00:00 [facility] SARS-COV-2 COVID-19 2020-04-28 Completed [facility] PFIZER VACCINE 00:00:00 [facility] SARS-COV-2 COVID-19 2020-04-28 Completed [facility] PFIZER VACCINE 00:00:00 [facility] SARS-COV-2 COVID-19 2020-04-28 Completed [facility] PFIZER VACCINE 00:00:00 [facility] SARS-COV-2 COVID-19 2020-04-28 Completed [facility] PFIZER VACCINE 00:00:00 [facility] SARS-COV-2 COVID-19 2020-04-28 Completed [facility] PFIZER VACCINE 00:00:00 [facility] SARS-COV-2 COVID-19 2020-04-28 Completed [facility] PFIZER VACCINE 00:00:00 [facility] SARS-COV-2 COVID-19 2020-04-28 Completed [facility] PFIZER VACCINE 00:00:00 [facility] SARS-COV-2 COVID-19 2020-04-28 Completed [facility] PFIZER VACCINE 00:00:00 [facility] SARS-COV-2 COVID-19 2020-04-28 Completed [facility] PFIZER VACCINE 00:00:00 [facility] SARS-COV-2 COVID-19 2020-04-28 Completed [facility] PFIZER VACCINE 00:00:00 [facility] SARS-COV-2 COVID-19 2020-04-28 Completed [facility] PFIZER VACCINE 00:00:00 [facility] SARS-COV-2 COVID-19 2020-04-28 Completed [facility] PFIZER VACCINE 00:00:00 [facility] SARS-COV-2 COVID-19 2020-04-28 Completed [facility] PFIZER VACCINE 00:00:00 [facility] SARS-COV-2 COVID-19 2020-04-28 Completed [facility] PFIZER VACCINE 00:00:00 [facility] SARS-COV-2 COVID-19 2020-04-28 Completed [facility] PFIZER VACCINE 00:00:00 [facility] SARS-COV-2 COVID-19 2020-04-28 Completed [facility] PFIZER VACCINE 00:00:00 [facility] SARS-COV-2 COVID-19 2020-04-28 Completed [facility] PFIZER VACCINE 00:00:00 [facility] SARS-COV-2 COVID-19 2020-04-28 Completed [facility] PFIZER VACCINE 00:00:00 [facility] SARS-COV-2 COVID-19 2020-04-28 Completed [facility] PFIZER VACCINE 00:00:00 [facility] SARS-COV-2 COVID-19 2020-04-28 Completed [facility] PFIZER VACCINE 00:00:00 [facility] SARS-COV-2 COVID-19 2020-04-28 Completed [facility] PFIZER VACCINE 00:00:00 [facility] SARS-COV-2 COVID-19 2020-04-28 Completed [facility] PFIZER VACCINE 00:00:00 [facility] SARS-COV-2 COVID-19 2020-04-28 Completed [facility] PFIZER VACCINE 00:00:00 [facility] SARS-COV-2 COVID-19 2020-04-03 Completed [facility] PFIZER VACCINE 00:00:00 [facility] SARS-COV-2 COVID-19 2020-04-03 Completed [facility] PFIZER VACCINE 00:00:00 [facility] SARS-COV-2 COVID-19 2020-04-03 Completed [facility] PFIZER VACCINE 00:00:00 [facility] SARS-COV-2 COVID-19 2020-04-03 Completed [facility] PFIZER VACCINE 00:00:00 [facility] SARS-COV-2 COVID-19 2020-04-03 Completed [facility] PFIZER VACCINE 00:00:00 [facility] SARS-COV-2 COVID-19 2020-04-03 Completed [facility] PFIZER VACCINE 00:00:00 [facility] SARS-COV-2 COVID-19 2020-04-03 Completed [facility] PFIZER VACCINE 00:00:00 [facility] SARS-COV-2 COVID-19 2020-04-03 Completed [facility] PFIZER VACCINE 00:00:00 [facility] SARS-COV-2 COVID-19 2020-04-03 Completed [facility] PFIZER VACCINE 00:00:00 [facility] SARS-COV-2 COVID-19 2020-04-03 Completed [facility] PFIZER VACCINE 00:00:00 [facility] SARS-COV-2 COVID-19 2020-04-03 Completed [facility] PFIZER VACCINE 00:00:00 [facility] SARS-COV-2 COVID-19 2020-04-03 Completed [facility] PFIZER VACCINE 00:00:00 [facility] SARS-COV-2 COVID-19 2020-04-03 Completed [facility] PFIZER VACCINE 00:00:00 [facility] SARS-COV-2 COVID-19 2020-04-03 Completed [facility] PFIZER VACCINE 00:00:00 [facility] SARS-COV-2 COVID-19 2020-04-03 Completed [facility] PFIZER VACCINE 00:00:00 [facility] SARS-COV-2 COVID-19 2020-04-03 Completed [facility] PFIZER VACCINE 00:00:00 [facility] SARS-COV-2 COVID-19 2020-04-03 Completed [facility] PFIZER VACCINE 00:00:00 [facility] SARS-COV-2 COVID-19 2020-04-03 Completed [facility] PFIZER VACCINE 00:00:00 [facility] SARS-COV-2 COVID-19 2020-04-03 Completed [facility] PFIZER VACCINE 00:00:00 [facility] SARS-COV-2 COVID-19 2020-04-03 Completed [facility] PFIZER VACCINE 00:00:00 [facility] SARS-COV-2 COVID-19 2020-04-03 Completed [facility] PFIZER VACCINE 00:00:00 [facility] SARS-COV-2 COVID-19 2020-04-03 Completed [facility] PFIZER VACCINE 00:00:00 [facility] SARS-COV-2 COVID-19 2020-04-03 Completed [facility] PFIZER VACCINE 00:00:00 [facility] SARS-COV-2 COVID-19 2020-04-03 Completed [facility] PFIZER VACCINE 00:00:00 [facility] SARS-COV-2 COVID-19 2020-04-03 Completed [facility] PFIZER VACCINE 00:00:00 [facility] SARS-COV-2 COVID-19 2020-04-03 Completed [facility] PFIZER VACCINE 00:00:00 [facility] SARS-COV-2 COVID-19 2020-04-03 Completed [facility] PFIZER VACCINE 00:00:00 [facility] SARS-COV-2 COVID-19 2020-04-03 Completed [facility] PFIZER VACCINE 00:00:00 [facility] SARS-COV-2 COVID-19 2020-04-03 Completed [facility] PFIZER VACCINE 00:00:00 [facility] SARS-COV-2 COVID-19 2020-04-03 Completed [facility] PFIZER VACCINE 00:00:00 [facility] SARS-COV-2 COVID-19 2020-04-03 Completed [facility] PFIZER VACCINE 00:00:00 [facility] SARS-COV-2 COVID-19 2020-04-03 Completed [facility] PFIZER VACCINE 00:00:00 [facility] SARS-COV-2 COVID-19 2020-04-03 Completed [facility] PFIZER VACCINE 00:00:00 [facility] SARS-COV-2 COVID-19 2020-04-03 Completed [facility] PFIZER VACCINE 00:00:00 [facility] SARS-COV-2 COVID-19 2020-04-03 Completed [facility] PFIZER VACCINE 00:00:00 [facility] SARS-COV-2 COVID-19 2020-04-03 Completed [facility] PFIZER VACCINE 00:00:00 [facility] SARS-COV-2 COVID-19 2020-04-03 Completed [facility] PFIZER VACCINE 00:00:00 [facility] SARS-COV-2 COVID-19 2020-04-03 Completed [facility] PFIZER VACCINE 00:00:00 [facility] SARS-COV-2 COVID-19 2020-04-03 Completed [facility] PFIZER VACCINE 00:00:00 [facility] SARS-COV-2 COVID-19 2020-04-03 Completed [facility] PFIZER VACCINE 00:00:00 [facility] SARS-COV-2 COVID-19 2020-04-03 Completed [facility] PFIZER VACCINE 00:00:00 [facility] SARS-COV-2 COVID-19 2020-04-03 Completed [facility] PFIZER VACCINE 00:00:00 [facility] SARS-COV-2 COVID-19 2020-04-03 Completed [facility] PFIZER VACCINE 00:00:00 [facility] SARS-COV-2 COVID-19 2020-04-03 Completed [facility] PFIZER VACCINE 00:00:00 [facility] SARS-COV-2 COVID-19 2020-04-03 Completed [facility] PFIZER VACCINE 00:00:00 [facility] SARS-COV-2 COVID-19 2020-04-03 Completed [facility] PFIZER VACCINE 00:00:00 [facility] SARS-COV-2 COVID-19 2020-04-03 Completed [facility] PFIZER VACCINE 00:00:00 [facility] SARS-COV-2 COVID-19 2020-04-03 Completed [facility] PFIZER VACCINE 00:00:00 [facility] SARS-COV-2 COVID-19 2020-04-03 Completed [facility] PFIZER VACCINE 00:00:00 [facility] SARS-COV-2 COVID-19 2020-04-03 Completed [facility] PFIZER VACCINE 00:00:00 [facility] SARS-COV-2 COVID-19 2020-04-03 Completed [facility] PFIZER VACCINE 00:00:00 [facility] SARS-COV-2 COVID-19 2020-04-03 Completed [facility] PFIZER VACCINE 00:00:00 [facility] SARS-COV-2 COVID-19 2020-04-03 Completed [facility] PFIZER VACCINE 00:00:00 [facility] SARS-COV-2 COVID-19 2020-04-03 Completed [facility] PFIZER VACCINE 00:00:00 [facility] SARS-COV-2 COVID-19 2020-04-03 Completed [facility] PFIZER VACCINE 00:00:00 [facility] SARS-COV-2 COVID-19 2020-04-03 Completed [facility] PFIZER VACCINE 00:00:00 [facility] SARS-COV-2 COVID-19 2020-04-03 Completed [facility] PFIZER VACCINE 00:00:00 [facility] SARS-COV-2 COVID-19 2020-04-03 Completed [facility] PFIZER VACCINE 00:00:00 [facility] SARS-COV-2 COVID-19 2020-04-03 Completed [facility] PFIZER VACCINE 00:00:00 [facility] SARS-COV-2 COVID-19 2020-04-03 Completed [facility] PFIZER VACCINE 00:00:00 [facility] SARS-COV-2 COVID-19 2020-04-03 Completed [facility] PFIZER VACCINE 00:00:00 [facility] SARS-COV-2 COVID-19 2020-04-03 Completed [facility] PFIZER VACCINE 00:00:00 [facility] SARS-COV-2 COVID-19 2020-04-03 Completed [facility] PFIZER VACCINE 00:00:00 [facility] SARS-COV-2 COVID-19 2020-04-03 Completed [facility] PFIZER VACCINE 00:00:00 [facility] SARS-COV-2 COVID-19 2020-04-03 Completed [facility] PFIZER VACCINE 00:00:00 [facility] SARS-COV-2 COVID-19 2020-04-03 Completed [facility] PFIZER VACCINE 00:00:00 [facility] SARS-COV-2 COVID-19 2020-04-03 Completed [facility] PFIZER VACCINE 00:00:00 [facility] SARS-COV-2 COVID-19 2020-04-03 Completed [facility] PFIZER VACCINE 00:00:00 [facility] SARS-COV-2 COVID-19 2020-04-03 Completed [facility] PFIZER VACCINE 00:00:00 [facility] SARS-COV-2 COVID-19 2020-04-03 Completed [facility] PFIZER VACCINE 00:00:00 [facility] SARS-COV-2 COVID-19 2020-04-03 Completed [facility] PFIZER VACCINE 00:00:00 [facility] SARS-COV-2 COVID-19 2020-04-03 Completed [facility] PFIZER VACCINE 00:00:00 [facility] SARS-COV-2 COVID-19 2020-04-03 Completed [facility] PFIZER VACCINE 00:00:00 [facility] SARS-COV-2 COVID-19 2020-04-03 Completed [facility] PFIZER VACCINE 00:00:00 [facility] SARS-COV-2 COVID-19 2020-04-03 Completed [facility] PFIZER VACCINE 00:00:00 [facility] SARS-COV-2 COVID-19 2020-04-03 Completed [facility] PFIZER VACCINE 00:00:00 [facility] SARS-COV-2 COVID-19 2020-04-03 Completed [facility] PFIZER VACCINE 00:00:00 [facility] SARS-COV-2 COVID-19 2020-04-03 Completed [facility] PFIZER VACCINE 00:00:00 [facility] SARS-COV-2 COVID-19 2020-04-03 Completed [facility] PFIZER VACCINE 00:00:00 [facility] SARS-COV-2 COVID-19 2020-04-03 Completed [facility] PFIZER VACCINE 00:00:00 [facility] SARS-COV-2 COVID-19 2020-04-03 Completed [facility] PFIZER VACCINE 00:00:00 [facility] SARS-COV-2 COVID-19 2020-04-03 Completed [facility] PFIZER VACCINE 00:00:00 [facility] SARS-COV-2 COVID-19 2020-04-03 Completed [facility] PFIZER VACCINE 00:00:00 [facility] SARS-COV-2 COVID-19 2020-04-03 Completed [facility] PFIZER VACCINE 00:00:00 [facility] SARS-COV-2 COVID-19 2020-04-03 Completed [facility] PFIZER VACCINE 00:00:00 [facility] SARS-COV-2 COVID-19 2020-04-03 Completed [facility] PFIZER VACCINE 00:00:00 [facility] SARS-COV-2 COVID-19 2020-04-03 Completed [facility] PFIZER VACCINE 00:00:00 [facility] SARS-COV-2 COVID-19 2020-04-03 Completed [facility] PFIZER VACCINE 00:00:00 [facility] SARS-COV-2 COVID-19 2020-04-03 Completed [facility] PFIZER VACCINE 00:00:00 [facility] SARS-COV-2 COVID-19 2020-04-03 Completed [facility] PFIZER VACCINE 00:00:00 [facility] SARS-COV-2 COVID-19 2020-04-03 Completed [facility] PFIZER VACCINE 00:00:00 [facility] SARS-COV-2 COVID-19 2020-04-03 Completed [facility] PFIZER VACCINE 00:00:00 [facility] SARS-COV-2 COVID-19 2020-04-03 Completed [facility] PFIZER VACCINE 00:00:00 [facility] SARS-COV-2 COVID-19 2020-04-03 Completed [facility] PFIZER VACCINE 00:00:00 [facility] SARS-COV-2 COVID-19 2020-04-03 Completed [facility] PFIZER VACCINE 00:00:00 [facility] SARS-COV-2 COVID-19 2020-04-03 Completed [facility] PFIZER VACCINE 00:00:00 [facility] SARS-COV-2 COVID-19 2020-04-03 Completed [facility] PFIZER VACCINE 00:00:00 [facility] SARS-COV-2 COVID-19 2020-04-03 Completed [facility] PFIZER VACCINE 00:00:00 [facility] SARS-COV-2 COVID-19 2020-04-03 Completed [facility] PFIZER VACCINE 00:00:00 [facility] SARS-COV-2 COVID-19 2020-04-03 Completed [facility] PFIZER VACCINE 00:00:00 [facility] SARS-COV-2 COVID-19 2020-04-03 Completed [facility] PFIZER VACCINE 00:00:00 [facility] SARS-COV-2 COVID-19 2020-04-03 Completed [facility] PFIZER VACCINE 00:00:00 [facility] SARS-COV-2 COVID-19 2020-04-03 Completed [facility] PFIZER VACCINE 00:00:00 [facility] SARS-COV-2 COVID-19 2020-04-03 Completed [facility] PFIZER VACCINE 00:00:00 [facility] SARS-COV-2 COVID-19 2020-04-03 Completed [facility] PFIZER VACCINE 00:00:00 [facility] SARS-COV-2 COVID-19 2020-04-03 Completed [facility] PFIZER VACCINE 00:00:00 [facility] SARS-COV-2 COVID-19 2020-04-03 Completed [facility] PFIZER VACCINE 00:00:00 [facility] SARS-COV-2 COVID-19 2020-04-03 Completed [facility] PFIZER VACCINE 00:00:00 [facility] SARS-COV-2 COVID-19 2020-04-03 Completed [facility] PFIZER VACCINE 00:00:00 [facility] SARS-COV-2 COVID-19 2020-04-03 Completed [facility] PFIZER VACCINE 00:00:00 [facility] SARS-COV-2 COVID-19 2020-04-03 Completed [facility] PFIZER VACCINE 00:00:00 [facility] SARS-COV-2 COVID-19 2020-04-03 Completed [facility] PFIZER VACCINE 00:00:00 [facility] SARS-COV-2 COVID-19 2020-04-03 Completed [facility] PFIZER VACCINE 00:00:00 [facility] SARS-COV-2 COVID-19 2020-04-03 Completed [facility] PFIZER VACCINE 00:00:00 [facility] SARS-COV-2 COVID-19 2020-04-03 Completed [facility] PFIZER VACCINE 00:00:00 [facility] SARS-COV-2 COVID-19 2020-04-03 Completed [facility] PFIZER VACCINE 00:00:00 [facility] SARS-COV-2 COVID-19 2020-04-03 Completed [facility] PFIZER VACCINE 00:00:00 [facility] SARS-COV-2 COVID-19 2020-04-03 Completed [facility] PFIZER VACCINE 00:00:00 [facility] Influenza High Dose 2019-11-24 Completed [facility] 00:00:00 [facility] Influenza Virus 2019-11-24 Completed [facility] Vaccine 00:00:00 [facility] Influenza High Dose 2019-11-24 Completed [facility] 00:00:00 [facility] Influenza Virus 2019-11-24 Completed [facility] Vaccine 00:00:00 [facility] Influenza High Dose 2019-11-24 Completed [facility] 00:00:00 [facility] Influenza Virus 2019-11-24 Completed [facility] Vaccine 00:00:00 [facility] Influenza High Dose 2019-11-24 Completed [facility] 00:00:00 [facility] Influenza Virus 2019-11-24 Completed [facility] Vaccine 00:00:00 [facility] Influenza High Dose 2019-11-24 Completed [facility] 00:00:00 [facility] Influenza Virus 2019-11-24 Completed [facility] Vaccine 00:00:00 [facility] Influenza High Dose 2019-11-24 Completed [facility] 00:00:00 [facility] Influenza Virus 2019-11-24 Completed [facility] Vaccine 00:00:00 [facility] Influenza High Dose 2019-11-24 Completed [facility] 00:00:00 [facility] Influenza Virus 2019-11-24 Completed [facility] Vaccine 00:00:00 [facility] Influenza High Dose 2019-11-24 Completed [facility] 00:00:00 [facility] Influenza Virus 2019-11-24 Completed [facility] Vaccine 00:00:00 [facility] Influenza High Dose 2019-11-24 Completed [facility] 00:00:00 [facility] Influenza Virus 2019-11-24 Completed [facility] Vaccine 00:00:00 [facility] Influenza High Dose 2019-11-24 Completed [facility] 00:00:00 [facility] Influenza Virus 2019-11-24 Completed [facility] Vaccine 00:00:00 [facility] Influenza High Dose 2019-11-24 Completed [facility] 00:00:00 [facility] Influenza Virus 2019-11-24 Completed [facility] Vaccine 00:00:00 [facility] Influenza High Dose 2019-11-24 Completed [facility] 00:00:00 [facility] Influenza Virus 2019-11-24 Completed [facility] Vaccine 00:00:00 [facility] Influenza High Dose 2019-11-24 Completed [facility] 00:00:00 [facility] Influenza Virus 2019-11-24 Completed [facility] Vaccine 00:00:00 [facility] Influenza High Dose 2019-11-24 Completed [facility] 00:00:00 [facility] Influenza Virus 2019-11-24 Completed [facility] Vaccine 00:00:00 [facility] Influenza High Dose 2019-11-24 Completed [facility] 00:00:00 [facility] Influenza Virus 2019-11-24 Completed [facility] Vaccine 00:00:00 [facility] Influenza High Dose 2019-11-24 Completed [facility] 00:00:00 [facility] Influenza Virus 2019-11-24 Completed [facility] Vaccine 00:00:00 [facility] Influenza High Dose 2019-11-24 Completed [facility] 00:00:00 [facility] Influenza Virus 2019-11-24 Completed [facility] Vaccine 00:00:00 [facility] Influenza High Dose 2019-11-24 Completed [facility] 00:00:00 [facility] Influenza Virus 2019-11-24 Completed [facility] Vaccine 00:00:00 [facility] Influenza High Dose 2019-11-24 Completed [facility] 00:00:00 [facility] Influenza Virus 2019-11-24 Completed [facility] Vaccine 00:00:00 [facility] Influenza High Dose 2019-11-24 Completed [facility] 00:00:00 [facility] Influenza Virus 2019-11-24 Completed [facility] Vaccine 00:00:00 [facility] Influenza High Dose 2019-11-24 Completed [facility] 00:00:00 [facility] Influenza Virus 2019-11-24 Completed [facility] Vaccine 00:00:00 [facility] Influenza High Dose 2019-11-24 Completed [facility] 00:00:00 [facility] Influenza Virus 2019-11-24 Completed [facility] Vaccine 00:00:00 [facility] Influenza High Dose 2019-11-24 Completed [facility] 00:00:00 [facility] Influenza Virus 2019-11-24 Completed [facility] Vaccine 00:00:00 [facility] Influenza High Dose 2019-11-24 Completed [facility] 00:00:00 [facility] Influenza Virus 2019-11-24 Completed [facility] Vaccine 00:00:00 [facility] Influenza High Dose 2019-11-24 Completed [facility] 00:00:00 [facility] Influenza Virus 2019-11-24 Completed [facility] Vaccine 00:00:00 [facility] Influenza High Dose 2019-11-24 Completed [facility] 00:00:00 [facility] Influenza Virus 2019-11-24 Completed [facility] Vaccine 00:00:00 [facility] Influenza High Dose 2019-11-24 Completed [facility] 00:00:00 [facility] Influenza Virus 2019-11-24 Completed [facility] Vaccine 00:00:00 [facility] Influenza High Dose 2019-11-24 Completed [facility] 00:00:00 [facility] Influenza Virus 2019-11-24 Completed [facility] Vaccine 00:00:00 [facility] Influenza High Dose 2019-11-24 Completed [facility] 00:00:00 [facility] Influenza Virus 2019-11-24 Completed [facility] Vaccine 00:00:00 [facility] Influenza High Dose 2019-11-24 Completed [facility] 00:00:00 [facility] Influenza Virus 2019-11-24 Completed [facility]ine 00:00:00 [facility] [facility] Influenza High Dose 2019-11-24 Completed [facility]00 [facility] Influenza Virus 2019-11-24 Completed [facility]00 [facility] Influenza High Dose 2019-11-24 Completed [facility] 00:00:00 [facility] Influenza Virus 2019-11-24 Completed [facility] Vaccine 00:00:00 [facility] Influenza High Dose 2019-11-24 Completed [facility] 00:00:00 [facility] Influenza Virus 2019-11-24 Completed [facility] Vaccine 00:00:00 [facility] Influenza High Dose 2019-11-24 Completed [facility] 00:00:00 [facility] Influenza Virus 2019-11-24 Completed [facility] Vaccine 00:00:00 [facility] Influenza High Dose 2019-11-24 Completed [facility] 00:00:00 [facility] Influenza Virus 2019-11-24 Completed [facility] Vaccine 00:00:00 [facility] Influenza High Dose 2019-11-24 Completed [facility] 00:00:00 [facility] Influenza Virus 2019-11-24 Completed [facility] Vaccine 00:00:00 [facility] Influenza High Dose 2019-11-24 Completed [facility] 00:00:00 [facility] Influenza Virus 2019-11-24 Completed [facility] Vaccine 00:00:00 [facility] Influenza High Dose 2019-11-24 Completed [facility] 00:00:00 [facility] Influenza Virus 2019-11-24 Completed [facility] Vaccine 00:00:00 [facility] Influenza High Dose 2019-11-24 Completed [facility] 00:00:00 [facility] Influenza Virus 2019-11-24 Completed [facility] Vaccine 00:00:00 [facility] Influenza High Dose 2019-11-24 Completed [facility] 00:00:00 [facility] Influenza Virus 2019-11-24 Completed [facility] Vaccine 00:00:00 [facility] Influenza High Dose 2019-11-24 Completed [facility] 00:00:00 [facility] Influenza Virus 2019-11-24 Completed [facility] Vaccine 00:00:00 [facility] Influenza High Dose 2019-11-24 Completed [facility] 00:00:00 [facility] Influenza Virus 2019-11-24 Completed [facility] Vaccine 00:00:00 [facility] Influenza High Dose 2019-11-24 Completed [facility] 00:00:00 [facility] Influenza Virus 2019-11-24 Completed [facility] Vaccine 00:00:00 [facility] Influenza High Dose 2019-11-24 Completed [facility] 00:00:00 [facility] Influenza Virus 2019-11-24 Completed [facility] Vaccine 00:00:00 [facility] Influenza High Dose 2019-11-24 Completed [facility] 00:00:00 [facility] Influenza Virus 2019-11-24 Completed [facility] Vaccine 00:00:00 [facility] Influenza High Dose 2019-11-24 Completed [facility] 00:00:00 [facility] Influenza Virus 2019-11-24 Completed [facility] Vaccine 00:00:00 [facility] Influenza High Dose 2019-11-24 Completed [facility] 00:00:00 [facility] Influenza Virus 2019-11-24 Completed [facility] Vaccine 00:00:00 [facility] Influenza High Dose 2019-11-24 Completed [facility] 00:00:00 [facility] Influenza Virus 2019-11-24 Completed [facility] Vaccine 00:00:00 [facility] Influenza High Dose 2019-11-24 Completed [facility] 00:00:00 [facility] Influenza Virus 2019-11-24 Completed [facility] Vaccine 00:00:00 [facility] Influenza High Dose 2019-11-24 Completed [facility] 00:00:00 [facility] Influenza Virus 2019-11-24 Completed [facility] Vaccine 00:00:00 [facility] Influenza High Dose 2019-11-24 Completed [facility] 00:00:00 [facility] Influenza Virus 2019-11-24 Completed [facility] Vaccine 00:00:00 [facility] Influenza High Dose 2019-11-24 Completed [facility] 00:00:00 [facility] Influenza Virus 2019-11-24 Completed [facility] Vaccine 00:00:00 [facility] Influenza High Dose 2019-11-24 Completed [facility] 00:00:00 [facility] Influenza Virus 2019-11-24 Completed [facility] Vaccine 00:00:00 [facility] Influenza High Dose 2019-11-24 Completed [facility] 00:00:00 [facility] Influenza Virus 2019-11-24 Completed [facility] Vaccine 00:00:00 [facility] Influenza High Dose 2019-11-24 Completed [facility] 00:00:00 [facility] Influenza Virus 2019-11-24 Completed [facility] Vaccine 00:00:00 [facility] Influenza High Dose 2019-11-24 Completed [facility] 00:00:00 [facility] Influenza Virus 2019-11-24 Completed [facility] Vaccine 00:00:00 [facility] Influenza High Dose 2019-11-24 Completed [facility] 00:00:00 [facility] Influenza Virus 2019-11-24 Completed [facility] Vaccine 00:00:00 [facility] Influenza High Dose 2019-11-24 Completed [facility] 00:00:00 [facility] Influenza Virus 2019-11-24 Completed [facility] Vaccine 00:00:00 [facility] Influenza High Dose 2019-11-24 Completed [facility] 00:00:00 [facility] Influenza Virus 2019-11-24 Completed [facility] Vaccine 00:00:00 [facility] Influenza High Dose 2019-11-24 Completed [facility] 00:00:00 [facility] Influenza Virus 2019-11-24 Completed [facility] Vaccine 00:00:00 [facility] Influenza High Dose 2019-11-24 Completed [facility] 00:00:00 [facility] Influenza Virus 2019-11-24 Completed [facility] Vaccine 00:00:00 [facility] Influenza High Dose 2019-11-24 Completed [facility] 00:00:00 [facility] Influenza Virus 2019-11-24 Completed [facility] Vaccine 00:00:00 [facility] Influenza High Dose 2019-11-24 Completed [facility] 00:00:00 [facility] Influenza Virus 2019-11-24 Completed [facility] Vaccine 00:00:00 [facility] Influenza High Dose 2019-11-24 Completed [facility] 00:00:00 [facility] Influenza Virus 2019-11-24 Completed [facility] Vaccine 00:00:00 [facility] Influenza High Dose 2019-11-24 Completed [facility] 00:00:00 [facility] Influenza Virus 2019-11-24 Completed [facility] Vaccine 00:00:00 [facility] Influenza High Dose 2019-11-24 Completed [facility] 00:00:00 [facility] Influenza Virus 2019-11-24 Completed [facility] Vaccine 00:00:00 [facility] Influenza High Dose 2019-11-24 Completed [facility] 00:00:00 [facility] Influenza Virus 2019-11-24 Completed [facility] Vaccine 00:00:00 [facility] Influenza High Dose 2019-11-24 Completed [facility] 00:00:00 [facility] Influenza Virus 2019-11-24 Completed [facility] Vaccine 00:00:00 [facility] Influenza High Dose 2019-11-24 Completed [facility] 00:00:00 [facility] Influenza Virus 2019-11-24 Completed [facility] Vaccine 00:00:00 [facility] Influenza High Dose 2019-11-24 Completed [facility] 00:00:00 [facility] Influenza Virus 2019-11-24 Completed [facility] Vaccine 00:00:00 [facility] Influenza High Dose 2019-11-24 Completed [facility] 00:00:00 [facility] Influenza Virus 2019-11-24 Completed [facility] Vaccine 00:00:00 [facility] Influenza High Dose 2019-11-24 Completed [facility] 00:00:00 [facility] Influenza Virus 2019-11-24 Completed [facility] Vaccine 00:00:00 [facility] Influenza High Dose 2019-11-24 Completed [facility] 00:00:00 [facility] Influenza Virus 2019-11-24 Completed [facility] Vaccine 00:00:00 [facility] Influenza High Dose 2019-11-24 Completed [facility] 00:00:00 [facility] Influenza Virus 2019-11-24 Completed [facility] Vaccine 00:00:00 [facility] Influenza High Dose 2019-11-24 Completed [facility] 00:00:00 [facility] Influenza Virus 2019-11-24 Completed [facility] Vaccine 00:00:00 [facility] Influenza High Dose 2019-11-24 Completed [facility] 00:00:00 [facility] Influenza Virus 2019-11-24 Completed [facility] Vaccine 00:00:00 [facility] Influenza High Dose 2019-11-24 Completed [facility] 00:00:00 [facility] Influenza Virus 2019-11-24 Completed [facility] Vaccine 00:00:00 [facility] Influenza High Dose 2019-11-24 Completed [facility] 00:00:00 [facility] Influenza Virus 2019-11-24 Completed [facility] Vaccine 00:00:00 [facility] Influenza High Dose 2019-11-24 Completed [facility] 00:00:00 [facility] Influenza Virus 2019-11-24 Completed [facility] Vaccine 00:00:00 [facility] Influenza High Dose 2019-11-24 Completed [facility] 00:00:00 [facility] Influenza Virus 2019-11-24 Completed [facility] Vaccine 00:00:00 [facility] Influenza High Dose 2019-11-24 Completed [facility] 00:00:00 [facility] Influenza Virus 2019-11-24 Completed [facility] Vaccine 00:00:00 [facility] Influenza High Dose 2019-11-24 Completed [facility] 00:00:00 [facility] Influenza Virus 2019-11-24 Completed [facility] Vaccine 00:00:00 [facility] Influenza High Dose 2019-11-24 Completed [facility] 00:00:00 [facility] Influenza Virus 2019-11-24 Completed [facility] Vaccine 00:00:00 [facility] Influenza High Dose 2019-11-24 Completed [facility] 00:00:00 [facility] Influenza Virus 2019-11-24 Completed [facility] Vaccine 00:00:00 [facility] Influenza High Dose 2019-11-24 Completed [facility] 00:00:00 [facility] Influenza Virus 2019-11-24 Completed [facility] Vaccine 00:00:00 [facility] Influenza High Dose 2019-11-24 Completed [facility] 00:00:00 [facility] Influenza Virus 2019-11-24 Completed [facility] Vaccine 00:00:00 [facility] Influenza High Dose 2019-11-24 Completed [facility] 00:00:00 [facility] Influenza Virus 2019-11-24 Completed [facility] Vaccine 00:00:00 [facility] Influenza High Dose 2019-11-24 Completed [facility] 00:00:00 [facility] Influenza Virus 2019-11-24 Completed [facility] Vaccine 00:00:00 [facility] Influenza High Dose 2019-11-24 Completed [facility] 00:00:00 [facility] Influenza Virus 2019-11-24 Completed [facility] Vaccine 00:00:00 [facility] Influenza High Dose 2019-11-24 Completed [facility] 00:00:00 [facility] Influenza Virus 2019-11-24 Completed [facility] Vaccine 00:00:00 [facility] Influenza High Dose 2019-11-24 Completed [facility] 00:00:00 [facility] Influenza Virus 2019-11-24 Completed [facility] Vaccine 00:00:00 [facility] Influenza High Dose 2019-11-24 Completed [facility] 00:00:00 [facility] Influenza Virus 2019-11-24 Completed [facility] Vaccine 00:00:00 [facility] Influenza High Dose 2019-11-24 Completed [facility] 00:00:00 [facility] Influenza Virus 2019-11-24 Completed [facility] Vaccine 00:00:00 [facility] Influenza High Dose 2019-11-24 Completed [facility] 00:00:00 [facility] Influenza Virus 2019-11-24 Completed [facility] Vaccine 00:00:00 [facility] Influenza High Dose 2019-11-24 Completed [facility] 00:00:00 [facility] Influenza Virus 2019-11-24 Completed [facility] Vaccine 00:00:00 [facility] Influenza High Dose 2019-11-24 Completed [facility] 00:00:00 [facility] Influenza Virus 2019-11-24 Completed [facility] Vaccine 00:00:00 [facility] Influenza High Dose 2019-11-24 Completed [facility] 00:00:00 [facility] Influenza Virus 2019-11-24 Completed [facility] Vaccine 00:00:00 [facility] Influenza High Dose 2019-11-24 Completed [facility] 00:00:00 [facility] Influenza Virus 2019-11-24 Completed [facility] Vaccine 00:00:00 [facility] Influenza High Dose 2019-11-24 Completed [facility] 00:00:00 [facility] Influenza Virus 2019-11-24 Completed [facility] Vaccine 00:00:00 [facility] Influenza High Dose 2019-11-24 Completed [facility] 00:00:00 [facility] Influenza Virus 2019-11-24 Completed [facility] Vaccine 00:00:00 [facility] Influenza High Dose 2019-11-24 Completed [facility] 00:00:00 [facility] Influenza Virus 2019-11-24 Completed [facility] Vaccine 00:00:00 [facility] Influenza High Dose 2019-11-24 Completed [facility] 00:00:00 [facility] Influenza Virus 2019-11-24 Completed [facility] Vaccine 00:00:00 [facility] Influenza High Dose 2019-11-24 Completed [facility] 00:00:00 [facility] Influenza Virus 2019-11-24 Completed [facility] Vaccine 00:00:00 [facility] Influenza High Dose 2019-11-24 Completed [facility] 00:00:00 [facility] Influenza Virus 2019-11-24 Completed [facility] Vaccine 00:00:00 [facility] Influenza High Dose 2019-11-24 Completed [facility] 00:00:00 [facility] Influenza Virus 2019-11-24 Completed [facility] Vaccine 00:00:00 [facility] Influenza High Dose 2019-11-24 Completed [facility] 00:00:00 [facility] Influenza Virus 2019-11-24 Completed [facility] Vaccine 00:00:00 [facility] Influenza High Dose 2019-11-24 Completed [facility] 00:00:00 [facility] Influenza Virus 2019-11-24 Completed [facility] Vaccine 00:00:00 [facility] Influenza High Dose 2019-11-24 Completed [facility] 00[facility]00:00 [facility] Influenza Virus 2019-11-24 Completed [facility] Vaccine 00:00:00 [facility] Influenza High Dose 2019-11-24 Completed [facility] 00:00:00 [facility] Influenza Virus 2019-11-24 Completed [facility] Vaccine 00:00:00 [facility] Influenza High Dose 2019-11-24 Completed [facility] 00:00:00 [facility] Influenza Virus 2019-11-24 Completed [facility] Vaccine 00:00:00 [facility] Influenza High Dose 2019-11-24 Completed [facility] 00:00:00 [facility] Influenza Virus 2019-11-24 Completed [facility] Vaccine 00:00:00 [facility] Influenza High Dose 2019-11-24 Completed [facility] 00:00:00 [facility] Influenza Virus 2019-11-24 Completed [facility] Vaccine 00:00:00 [facility] Influenza High Dose 2019-11-24 Completed [facility] 00:00:00 [facility] Influenza Virus 2019-11-24 Completed [facility] Vaccine 00:00:00 [facility] Influenza High Dose 2019-11-24 Completed [facility] 00:00:00 [facility] Influenza Virus 2019-11-24 Completed [facility] Vaccine 00:00:00 [facility] Influenza High Dose 2019-11-24 Completed [facility] 00:00:00 [facility] Influenza Virus 2019-11-24 Completed [facility] Vaccine 00:00:00 [facility] Influenza High Dose 2019-11-24 Completed [facility] 00:00:00 [facility] Influenza Virus 2019-11-24 Completed [facility] Vaccine 00:00:00 [facility] Influenza High Dose 2019-11-24 Completed [facility] 00:00:00 [facility] Influenza Virus 2019-11-24 Completed [facility] Vaccine 00:00:00 [facility] Influenza High Dose 2019-11-24 Completed [facility] 00:00:00 [facility] Influenza Virus 2019-11-24 Completed [facility] Vaccine 00:00:00 [facility] Influenza High Dose 2019-01-20 Completed [facility] 00:00:00 [facility] Influenza High Dose 2019-01-20 Completed [facility] 00:00:00 [facility] Influenza High Dose 2019-01-20 Completed [facility] 00:00:00 [facility] Influenza High Dose 2019-01-20 Completed [facility] 00:00:00 [facility] Influenza High Dose 2019-01-20 Completed [facility] 00:00:00 [facility] Influenza High Dose 2019-01-20 Completed [facility] 00:00:00 [facility] Influenza High Dose 2019-01-20 Completed [facility] 00:00:00 [facility] Influenza High Dose 2019-01-20 Completed [facility] 00:00:00 [facility] Influenza High Dose 2019-01-20 Completed [facility] 00:00:00 [facility] Influenza High Dose 2019-01-20 Completed [facility] 00:00:00 [facility] Influenza High Dose 2019-01-20 Completed [facility] 00:00:00 [facility] Influenza High Dose 2019-01-20 Completed [facility] 00:00:00 [facility] Influenza High Dose 2019-01-20 Completed [facility] 00:00:00 [facility] Influenza High Dose 2019-01-20 Completed [facility] 00:00:00 [facility] Influenza High Dose 2019-01-20 Completed [facility] 00:00:00 [facility] Influenza High Dose 2019-01-20 Completed [facility] 00:00:00 [facility] Influenza High Dose 2019-01-20 Completed [facility] 00:00:00 [facility] Influenza High Dose 2019-01-20 Completed [facility] 00:00:00 [facility] Influenza High Dose 2019-01-20 Completed [facility] 00:00:00 [facility] Influenza High Dose 2019-01-20 Completed [facility] 00:00:00 [facility] Influenza High Dose 2019-01-20 Completed [facility] 00:00:00 [facility] Influenza High Dose 2019-01-20 Completed [facility] 00:00:00 [facility] Influenza High Dose 2019-01-20 Completed [facility] 00:00:00 [facility] Influenza High Dose 2019-01-20 Completed [facility] 00:00:00 [facility] Influenza High Dose 2019-01-20 Completed [facility] 00:00:00 [facility] Influenza High Dose 2019-01-20 Completed [facility] 00:00:00 [facility] Influenza High Dose 2019-01-20 Completed [facility] 00:00:00 [facility] Influenza High Dose 2019-01-20 Completed [facility] 00[facility]00:00 [facility] Influenza High Dose 2019-01-20 Completed [facility] 00:00:00 [facility] Influenza High Dose 2019-01-20 Completed [facility] 00:00:00 [facility] Influenza High Dose 2019-01-20 Completed [facility] 00:00:00 [facility] Influenza High Dose 2019-01-20 Completed [facility] 00:00:00 [facility] Influenza High Dose 2019-01-20 Completed [facility] 00:00:00 [facility] Influenza High Dose 2019-01-20 Completed [facility] 00:00:00 [facility] Influenza High Dose 2019-01-20 Completed [facility] 00:00:00 [facility] Influenza High Dose 2019-01-20 Completed [facility] 00:00:00 [facility] Influenza High Dose 2019-01-20 Completed [facility] 00:00:00 [facility] Influenza High Dose 2019-01-20 Completed [facility] 00:00:00 [facility] Influenza High Dose 2019-01-20 Completed [facility] 00:00:00 [facility] Influenza High Dose 2019-01-20 Completed [facility] 00:00:00 [facility] Influenza High Dose 2019-01-20 Completed [facility] 00:00:00 [facility] Influenza High Dose 2019-01-20 Completed [facility] 00:00:00 [facility] Influenza High Dose 2019-01-20 Completed [facility] 00:00:00 [facility] Influenza High Dose 2019-01-20 Completed [facility] 00:00:00 [facility] Influenza High Dose 2019-01-20 Completed [facility] 00:00:00 [facility] Influenza High Dose 2019-01-20 Completed [facility] 00:00:00 [facility] Influenza High Dose 2019-01-20 Completed [facility] 00:00:00 [facility] Influenza High Dose 2019-01-20 Completed [facility] 00:00:00 [facility] Influenza High Dose 2019-01-20 Completed [facility] 00:00:00 [facility] Influenza High Dose 2019-01-20 Completed [facility] 00:00:00 [facility] Influenza High Dose 2019-01-20 Completed [facility] 00:00:00 [facility] Influenza High Dose 2019-01-20 Completed [facility] 00:00:00 [facility] Influenza High Dose 2019-01-20 Completed [facility] 00:00:00 [facility] Influenza High Dose 2019-01-20 Completed [facility] 00:00:00 [facility] Influenza High Dose 2019-01-20 Completed [facility] 00:00:00 [facility] Influenza High Dose 2019-01-20 Completed [facility] 00:00:00 [facility] Influenza High Dose 2019-01-20 Completed [facility] 00:00:00 [facility] Influenza High Dose 2019-01-20 Completed [facility] 00:00:00 [facility] Influenza High Dose 2019-01-20 Completed [facility] 00:00:00 [facility] Influenza High Dose 2019-01-20 Completed [facility] 00:00:00 [facility] Influenza High Dose 2019-01-20 Completed [facility] 00:00:00 [facility] Influenza High Dose 2019-01-20 Completed [facility] 00:00:00 [facility] Influenza High Dose 2019-01-20 Completed [facility] 00:00:00 [facility] Influenza High Dose 2019-01-20 Completed [facility] 00:00:00 [facility] Influenza High Dose 2019-01-20 Completed [facility] 00:00:00 [facility] Influenza High Dose 2019-01-20 Completed [facility] 00:00:00 [facility] Influenza High Dose 2019-01-20 Completed [facility] 00:00:00 [facility] Influenza High Dose 2019-01-20 Completed [facility] 00:00:00 [facility] Influenza High Dose 2019-01-20 Completed [facility] 00:00:00 [facility] Influenza High Dose 2019-01-20 Completed [facility] 00:00:00 [facility] Influenza High Dose 2019-01-20 Completed [facility] 00:00:00 [facility] Influenza High Dose 2019-01-20 Completed [facility] 00:00:00 [facility] Influenza High Dose 2019-01-20 Completed [facility] 00:00:00 [facility] Influenza High Dose 2019-01-20 Completed [facility] 00:00:00 [facility] Influenza High Dose 2019-01-20 Completed [facility] 00:00:00 [facility] Influenza High Dose 2019-01-20 Completed [facility] 00:00:00 [facility] Influenza High Dose 2019-01-20 Completed [facility] 00:00:00 [facility] Influenza High Dose 2019-01-20 Completed [facility] 00:00:00 [facility] Influenza High Dose 2019-01-20 Completed [facility] 00:00:00 [facility] Influenza High Dose 2019-01-20 Completed [facility] 00:00:00 [facility] Influenza High Dose 2019-01-20 Completed [facility] 00:00:00 [facility] Influenza High Dose 2019-01-20 Completed [facility] 00:00:00 [facility] Influenza High Dose 2019-01-20 Completed [facility] 00:00:00 [facility] Influenza High Dose 2019-01-20 Completed [facility] 00:00:00 [facility] Influenza High Dose 2019-01-20 Completed [facility] 00:00:00 [facility] Influenza High Dose 2019-01-20 Completed [facility] 00:00:00 [facility] Influenza High Dose 2019-01-20 Completed [facility] 00:00:00 [facility] Influenza High Dose 2019-01-20 Completed [facility] 00:00:00 [facility] Influenza High Dose 2019-01-20 Completed [facility] 00:00:00 [facility] Influenza High Dose 2019-01-20 Completed [facility] 00:00:00 [facility] Influenza High Dose 2019-01-20 Completed [facility] 00:00:00 [facility] Influenza High Dose 2019-01-20 Completed [facility] 00:00:00 [facility] Influenza High Dose 2019-01-20 Completed [facility] 00:00:00 [facility] Influenza High Dose 2019-01-20 Completed [facility] 00:00:00 [facility] Influenza High Dose 2019-01-20 Completed [facility] 00:00:00 [facility] Influenza High Dose 2019-01-20 Completed [facility] 00:00:00 [facility] Influenza High Dose 2019-01-20 Completed [facility] 00:00:00 [facility] Influenza High Dose 2019-01-20 Completed [facility] 00:00:00 [facility] Influenza High Dose 2019-01-20 Completed [facility] 00:00:00 [facility] Influenza High Dose 2019-01-20 Completed [facility] 00:00:00 [facility] Influenza High Dose 2019-01-20 Completed [facility] 00:00:00 [facility] Influenza High Dose 2019-01-20 Completed [facility] 00:00:00 [facility] Influenza High Dose 2019-01-20 Completed [facility] 00:00:00 [facility] Influenza High Dose 2019-01-20 Completed [facility] 00:00:00 [facility] Influenza High Dose 2019-01-20 Completed [facility] 00:00:00 [facility] Influenza High Dose 2019-01-20 Completed [facility] 00:00:00 [facility] Influenza High Dose 2019-01-20 Completed [facility] 00:00:00 [facility] Influenza High Dose 2019-01-20 Completed [facility] 00:00:00 [facility] Influenza High Dose 2019-01-20 Completed [facility] 00:00:00 [facility] Influenza High Dose 2019-01-20 Completed [facility] 00:00:00 [facility] Influenza High Dose 2019-01-20 Completed [facility] 00:00:00 [facility] Influenza High Dose 2019-01-20 Completed [facility] 00:00:00 [facility] Influenza High Dose 2019-01-20 Completed [facility] 00:00:00 [facility] Influenza High Dose 2019-01-20 Completed [facility] 00:00:00 [facility] Influenza High Dose 2019-01-20 Completed [facility] 00:00:00 [facility] Influenza High Dose 2019-01-20 Completed [facility] 00:00:00 [facility] Influenza High Dose 2019-01-20 Completed [facility] 00:00:00 [facility] Influenza High Dose 2019-01-20 Completed [facility] 00:00:00 [facility] Influenza High Dose 2019-01-20 Completed [facility] 00:00:00 [facility] Influenza High Dose 2018-05-08 Completed [facility] 00:00:00 [facility] Pneumococcal 2018-05-08 Completed [facility] Polysaccharide, 00:00:00 [place] [facility] PPSV23 (PNEUMOVAX) [facility] Influenza High Dose 2018-05-08 Completed [facility] 00:00:00 [facility] Pneumococcal 2018-05-08 Completed [facility] Polysaccharide, 00:00:00 [place] [facility] PPSV23 (PNEUMOVAX) [facility] Influenza High Dose 2018-05-08 Completed [facility] 00:00:00 [facility] Pneumococcal 2018-05-08 Completed [facility] Polysaccharide, 00:00:00 [place] [facility] PPSV23 (PNEUMOVAX) [facility] Influenza High Dose 2018-05-08 Completed [facility] 00:00:00 [facility] Pneumococcal 2018-05-08 Completed [facility] Polysaccharide, 00:00:00 [place] [facility] PPSV23 (PNEUMOVAX) [facility] Influenza High Dose 2018-05-08 Completed [facility] 00:00:00 [facility] Pneumococcal 2018-05-08 Completed [facility] Polysaccharide, 00:00:00 [place] [facility] PPSV23 (PNEUMOVAX) [facility] Influenza High Dose 2018-05-08 Completed [facility] 00:00:00 [facility] Pneumococcal 2018-05-08 Completed [facility] Polysaccharide, 00:00:00 [place] [facility] PPSV23 (PNEUMOVAX) [facility] Influenza High Dose 2018-05-08 Completed [facility] 00:00:00 [facility] Pneumococcal 2018-05-08 Completed [facility] Polysaccharide, 00:00:00 [place] [facility] PPSV23 (PNEUMOVAX) [facility] Influenza High Dose 2018-05-08 Completed [facility] 00:00:00 [facility] Pneumococcal 2018-05-08 Completed [facility] Polysaccharide, 00:00:00 [place] [facility] PPSV23 (PNEUMOVAX) [facility] Influenza High Dose 2018-05-08 Completed [facility] 00:00:00 [facility] Pneumococcal 2018-05-08 Completed [facility] Polysaccharide, 00:00:00 [place] [facility] PPSV23 (PNEUMOVAX) [facility] Influenza High Dose 2018-05-08 Completed [facility] 00:00:00 [facility] Pneumococcal 2018-05-08 Completed [facility] Polysaccharide, 00:00:00 [place] [facility] PPSV23 (PNEUMOVAX) [facility] Influenza High Dose 2018-05-08 Completed [facility] 00:00:00 [facility] Pneumococcal 2018-05-08 Completed [facility] Polysaccharide, 00:00:00 [place] [facility] PPSV23 (PNEUMOVAX) [facility] Influenza High Dose 2018-05-08 Completed [facility] 00:00:00 [facility] Pneumococcal 2018-05-08 Completed [facility] Polysaccharide, 00:00:00 [place] [facility] PPSV23 (PNEUMOVAX) [facility] Influenza High Dose 2018-05-08 Completed [facility] 00:00:00 [facility] Pneumococcal 2018-05-08 Completed [facility] Polysaccharide, 00:00:00 [place] [facility] PPSV23 (PNEUMOVAX) [facility] Influenza High Dose 2018-05-08 Completed [facility] 00:00:00 [facility] Pneumococcal 2018-05-08 Completed [facility] Polysaccharide, 00:00:00 [place] [facility] PPSV23 (PNEUMOVAX) [facility] Influenza High Dose 2018-05-08 Completed [facility] 00:00:00 [facility] Pneumococcal 2018-05-08 Completed [facility] Polysaccharide, 00:00:00 [place] [facility] PPSV23 (PNEUMOVAX) [facility] Influenza High Dose 2018-05-08 Completed [facility] 00:00:00 [facility] Pneumococcal 2018-05-08 Completed [facility] Polysaccharide, 00:00:00 [place] [facility] PPSV23 (PNEUMOVAX) [facility] Influenza High Dose 2018-05-08 Completed [facility] 00:00:00 [facility] Pneumococcal 2018-05-08 Completed [facility] Polysaccharide, 00:00:00 [place] [facility] PPSV23 (PNEUMOVAX) [facility] Influenza High Dose 2018-05-08 Completed [facility] 00:00:00 [facility] Pneumococcal 2018-05-08 Completed [facility] Polysaccharide, 00:00:00 [place] [facility] PPSV23 (PNEUMOVAX) [facility] Influenza High Dose 2018-05-08 Completed [facility] 00:00:00 [facility] Pneumococcal 2018-05-08 Completed [facility] Polysaccharide, 00:00:00 [place] [facility] PPSV23 (PNEUMOVAX) [facility] Influenza High Dose 2018-05-08 Completed [facility] 00:00:00 [facility] Pneumococcal 2018-05-08 Completed [facility] Polysaccharide, 00:00:00 [place] [facility] PPSV23 (PNEUMOVAX) [facility] Influenza High Dose 2018-05-08 Completed [facility] 00:00:00 [facility] Pneumococcal 2018-05-08 Completed [facility] Polysaccharide, 00:00:00 [place] [facility] PPSV23 (PNEUMOVAX) [facility] Influenza High Dose 2018-05-08 Completed [facility] 00:00:00 [facility] Pneumococcal 2018-05-08 Completed [facility] Polysaccharide, 00:00:00 [place] [facility] PPSV23 (PNEUMOVAX) [facility] Influenza High Dose 2018-05-08 Completed [facility] 00:00:00 [facility] Pneumococcal 2018-05-08 Completed [facility] Polysaccharide, 00:00:00 [place] [facility] PPSV23 (PNEUMOVAX) [facility] Influenza High Dose 2018-05-08 Completed [facility] 00:00:00 [facility] Pneumococcal 2018-05-08 Completed [facility] Polysaccharide, 00:00:00 [place] [facility] PPSV23 (PNEUMOVAX) [facility] Influenza High Dose 2018-05-08 Completed [facility] 00:00:00 [facility] Pneumococcal 2018-05-08 Completed [facility] Polysaccharide, 00:00:00 [place] [facility] PPSV23 (PNEUMOVAX) [facility] Influenza High Dose 2018-05-08 Completed [facility] 00:00:00 [facility] Pneumococcal 2018-05-08 Completed [facility] Polysaccharide, 00:00:00 [place] [facility] PPSV23 (PNEUMOVAX) [facility] Influenza High Dose 2018-05-08 Completed [facility] 00:00:00 [facility] Pneumococcal 2018-05-08 Completed [facility] Polysaccharide, 00:00:00 [place] [facility] PPSV23 (PNEUMOVAX) [facility] Influenza High Dose 2018-05-08 Completed [facility] 00:00:00 [facility] Pneumococcal 2018-05-08 Completed [facility] Polysaccharide, 00:00:00 [place] [facility] PPSV23 (PNEUMOVAX) [facility] Influenza High Dose 2018-05-08 Completed [facility] 00:00:00 [facility] Pneumococcal 2018-05-08 Completed [facility] f Polysaccharide, 00:00:00 [place] [facility] PPSV23 (PNEUMOVAX) [facility] Influenza High Dose 2018-05-08 Completed [facility] 00:00:00 [facility] Pneumococcal 2018-05-08 Completed [facility] f Polysaccharide, 00:00:00 [place] [facility] PPSV23 (PNEUMOVAX) [facility] Influenza High Dose 2018-05-08 Completed [facility] 00:00:00 [facility] Pneumococcal 2018-05-08 Completed [facility] f Polysaccharide, 00:00:00 [place] [facility] PPSV23 (PNEUMOVAX) [facility] Influenza High Dose 2018-05-08 Completed [facility] 00:00:00 [facility] Pneumococcal 2018-05-08 Completed [facility] Polysaccharide, 00:00:00 [place] [facility] PPSV23 (PNEUMOVAX) [facility] Influenza High Dose 2018-05-08 Completed [facility] 00:00:00 [facility] Pneumococcal 2018-05-08 Completed [facility] Polysaccharide, 00:00:00 [place] [facility] PPSV23 (PNEUMOVAX) [facility] Influenza High Dose 2018-05-08 Completed [facility] 00:00:00 [facility] Pneumococcal 2018-05-08 Completed [facility] f Polysaccharide, 00:00:00 [place] [facility] PPSV23 (PNEUMOVAX) [facility] Influenza High Dose 2018-05-08 Completed [facility] 00:00:00 [facility] Pneumococcal 2018-05-08 Completed [facility] f Polysaccharide, 00:00:00 [place] [facility] PPSV23 (PNEUMOVAX) [facility] Influenza High Dose 2018-05-08 Completed [facility] 00:00:00 [facility] Pneumococcal 2018-05-08 Completed [facility] f Polysaccharide, 00:00:00 [place] [facility] PPSV23 (PNEUMOVAX) [facility] Influenza High Dose 2018-05-08 Completed [facility] 00:00:00 [facility] Pneumococcal 2018-05-08 Completed [facility] f Polysaccharide, 00:00:00 [place] [facility] PPSV23 (PNEUMOVAX) [facility] Influenza High Dose 2018-05-08 Completed [facility] 00:00:00 [facility] Pneumococcal 2018-05-08 Completed [facility] f Polysaccharide, 00:00:00 [place] [facility] PPSV23 (PNEUMOVAX) [facility] Influenza High Dose 2018-05-08 Completed [facility] 00:00:00 [facility] Pneumococcal 2018-05-08 Completed [facility] f Polysaccharide, 00:00:00 [place] [facility] PPSV23 (PNEUMOVAX) [facility] Influenza High Dose 2018-05-08 Completed [facility] 00:00:00 [facility] Pneumococcal 2018-05-08 Completed [facility] f Polysaccharide, 00:00:00 [place] [facility] PPSV23 (PNEUMOVAX) [facility] Influenza High Dose 2018-05-08 Completed [facility] 00:00:00 [facility] Pneumococcal 2018-05-08 Completed [facility] Polysaccharide, 00:00:00 [place] [facility] PPSV23 (PNEUMOVAX) [facility] Influenza High Dose 2018-05-08 Completed [facility] 00:00:00 [facility] Pneumococcal 2018-05-08 Completed [facility] f Polysaccharide, 00:00:00 [place] [facility] PPSV23 (PNEUMOVAX) [facility] Influenza High Dose 2018-05-08 Completed [facility] 00:00:00 [facility] Pneumococcal 2018-05-08 Completed [facility] f Polysaccharide, 00:00:00 [place] [facility] PPSV23 (PNEUMOVAX) [facility] Influenza High Dose 2018-05-08 Completed [facility] 00:00:00 [facility] Pneumococcal 2018-05-08 Completed [facility] f Polysaccharide, 00:00:00 [place] [facility] PPSV23 (PNEUMOVAX) [facility] Influenza High Dose 2018-05-08 Completed [facility] 00:00:00 [facility] Pneumococcal 2018-05-08 Completed [facility] f Polysaccharide, 00:00:00 [place] [facility] PPSV23 (PNEUMOVAX) [facility] Influenza High Dose 2018-05-08 Completed [facility] 00:00:00 [facility] Pneumococcal 2018-05-08 Completed [facility] f Polysaccharide, 00:00:00 [place] [facility] PPSV23 (PNEUMOVAX) [facility] Influenza High Dose 2018-05-08 Completed [facility] 00:00:00 [facility] Pneumococcal 2018-05-08 Completed [facility] o f Polysaccharide, 00:00:00 [place] [facility] PPSV23 (PNEUMOVAX) [facility] Influenza High Dose 2018-05-08 Completed [facility] 00:00:00 [facility] Pneumococcal 2018-05-08 Completed [facility] o f Polysaccharide, 00:00:00 [place] [facility] PPSV23 (PNEUMOVAX) [facility] Influenza High Dose 2018-05-08 Completed [facility] 00:00:00 [facility] Pneumococcal 2018-05-08 Completed [facility] o f Polysaccharide, 00:00:00 [place] [facility] PPSV23 (PNEUMOVAX) Branch Influenza High Dose 2018-05-08 Completed [facility] 00:00:00 [facility] Pneumococcal 2018-05-08 Completed [facility] o f Polysaccharide, 00:00:00 [place] [facility] PPSV23 (PNEUMOVAX) [facility] Influenza High Dose 2018-05-08 Completed [facility] 00:00:00 [facility] Pneumococcal 2018-05-08 Completed [facility] o f Polysaccharide, 00:00:00 [place] [facility] PPSV23 (PNEUMOVAX) [facility] Influenza High Dose 2018-05-08 Completed [facility] 00:00:00 [facility] Pneumococcal 2018-05-08 Completed [facility] o f Polysaccharide, 00:00:00 [place] [facility] PPSV23 (PNEUMOVAX) Branch Influenza High Dose 2018-05-08 Completed [facility] 00:00:00 [facility] Pneumococcal 2018-05-08 Completed [facility] f Polysaccharide, 00:00:00 [place] [facility] PPSV23 (PNEUMOVAX) [facility] Influenza High Dose 2018-05-08 Completed [facility] 00:00:00 [facility] Pneumococcal 2018-05-08 Completed [facility] o f Polysaccharide, 00:00:00 [place] [facility] PPSV23 (PNEUMOVAX) Branch Influenza High Dose 2018-05-08 Completed [facility] 00:00:00 [facility] Pneumococcal 2018-05-08 Completed [facility] o f Polysaccharide, 00:00:00 [place] [facility] PPSV23 (PNEUMOVAX) Branch Influenza High Dose 2018-05-08 Completed [facility] 00:00:00 [facility] Pneumococcal 2018-05-08 Completed [facility] o f Polysaccharide, 00:00:00 [place] [facility] PPSV23 (PNEUMOVAX) Branch Influenza High Dose 2018-05-08 Completed [facility] 00:00:00 [facility] Pneumococcal 2018-05-08 Completed [facility] o f Polysaccharide, 00:00:00 [place] [facility] PPSV23 (PNEUMOVAX) Branch Influenza High Dose 2018-05-08 Completed [facility] 00:00:00 [facility] Pneumococcal 2018-05-08 Completed [facility] o f Polysaccharide, 00:00:00 [place] [facility] PPSV23 (PNEUMOVAX) Branch Influenza High Dose 2018-05-08 Completed [facility] 00:00:00 [facility] Pneumococcal 2018-05-08 Completed [facility] Polysaccharide, 00:00:00 [place] [facility] PPSV23 (PNEUMOVAX) Branch Influenza High Dose 2018-05-08 Completed [facility] 00:00:00 [facility] Pneumococcal 2018-05-08 Completed [facility] Polysaccharide, 00:00:00 [place] [facility] PPSV23 (PNEUMOVAX) Branch Influenza High Dose 2018-05-08 Completed [facility] 00:00:00 [facility] Pneumococcal 2018-05-08 Completed [facility] Polysaccharide, 00:00:00 [place] [facility] PPSV23 (PNEUMOVAX) Branch Influenza High Dose 2018-05-08 Completed [facility] 00:00:00 [facility] Pneumococcal 2018-05-08 Completed [facility] Polysaccharide, 00:00:00 [place] [facility] PPSV23 (PNEUMOVAX) Branch Influenza High Dose 2018-05-08 Completed [facility] 00:00:00 [facility] Pneumococcal 2018-05-08 Completed [facility] f Polysaccharide, 00:00:00 [place] [facility] PPSV23 (PNEUMOVAX) Branch Influenza High Dose 2018-05-08 Completed [facility] 00:00:00 [facility] Pneumococcal 2018-05-08 Completed [facility] f Polysaccharide, 00:00:00 [place] [facility] PPSV23 (PNEUMOVAX) Branch Influenza High Dose 2018-05-08 Completed [facility] 00:00:00 [facility] Pneumococcal 2018-05-08 Completed [facility] f Polysaccharide, 00:00:00 [place] [facility] PPSV23 (PNEUMOVAX) Branch Influenza High Dose 2018-05-08 Completed [facility] 00:00:00 [facility] Pneumococcal 2018-05-08 Completed [facility] Polysaccharide, 00:00:00 [place] [facility] PPSV23 (PNEUMOVAX) Branch Influenza High Dose 2018-05-08 Completed [facility] 00:00:00 [facility] Pneumococcal 2018-05-08 Completed [facility] Polysaccharide, 00:00:00 [place] [facility] PPSV23 (PNEUMOVAX) Branch Influenza High Dose 2018-05-08 Completed [facility] 00:00:00 [facility] Pneumococcal 2018-05-08 Completed [facility] f Polysaccharide, 00:00:00 [place] [facility] PPSV23 (PNEUMOVAX) Branch Influenza High Dose 2018-05-08 Completed [facility] 00:00:00 [facility] Pneumococcal 2018-05-08 Completed [facility] f Polysaccharide, 00:00:00 [place] [facility] PPSV23 (PNEUMOVAX) Branch Influenza High Dose 2018-05-08 Completed [facility] 00:00:00 [facility] Pneumococcal 2018-05-08 Completed [facility] f Polysaccharide, 00:00:00 [place] [facility] PPSV23 (PNEUMOVAX) Branch Influenza High Dose 2018-05-08 Completed [facility] 00:00:00 [facility] Pneumococcal 2018-05-08 Completed [facility] f Polysaccharide, 00:00:00 [place] [facility] PPSV23 (PNEUMOVAX) Branch Influenza High Dose 2018-05-08 Completed [facility] 00:00:00 [facility] Pneumococcal 2018-05-08 Completed [facility] o f Polysaccharide, 00:00:00 [place] [facility] PPSV23 (PNEUMOVAX) Branch Influenza High Dose 2018-05-08 Completed [facility] 00:00:00 [facility] Pneumococcal 2018-05-08 Completed [facility] o f Polysaccharide, 00:00:00 [place] [facility] PPSV23 (PNEUMOVAX) Branch Influenza High Dose 2018-05-08 Completed [facility] 00:00:00 [facility] Pneumococcal 2018-05-08 Completed [facility] f Polysaccharide, 00:00:00 [place] [facility] PPSV23 (PNEUMOVAX) Branch Influenza High Dose 2018-05-08 Completed [facility] 00:00:00 [facility] Pneumococcal 2018-05-08 Completed [facility] f Polysaccharide, 00:00:00 [place] [facility] PPSV23 (PNEUMOVAX) Branch Influenza High Dose 2018-05-08 Completed [facility] 00:00:00 [facility] Pneumococcal 2018-05-08 Completed [facility] f Polysaccharide, 00:00:00 [place] [facility] PPSV23 (PNEUMOVAX) Branch Influenza High Dose 2018-05-08 Completed [facility] 00:00:00 [facility] Pneumococcal 2018-05-08 Completed [facility] o f Polysaccharide, 00:00:00 [place] [facility] PPSV23 (PNEUMOVAX) Branch Influenza High Dose 2018-05-08 Completed [facility] 00:00:00 [facility] Pneumococcal 2018-05-08 Completed [facility] o f Polysaccharide, 00:00:00 [place] [facility] PPSV23 (PNEUMOVAX) Branch Influenza High Dose 2018-05-08 Completed [facility] 00:00:00 [facility] Pneumococcal 2018-05-08 Completed [facility] o f Polysaccharide, 00:00:00 [place] [facility] PPSV23 (PNEUMOVAX) Branch Influenza High Dose 2018-05-08 Completed [facility] 00:00:00 [facility] Pneumococcal 2018-05-08 Completed [facility] o f Polysaccharide, 00:00:00 [place] [facility] PPSV23 (PNEUMOVAX) Branch Influenza High Dose 2018-05-08 Completed [facility] 00:00:00 [facility] Pneumococcal 2018-05-08 Completed [facility] o f Polysaccharide, 00:00:00 [place] [facility] PPSV23 (PNEUMOVAX) Branch Influenza High Dose 2018-05-08 Completed [facility] 00:00:00 [facility] Pneumococcal 2018-05-08 Completed [facility] o f Polysaccharide, 00:00:00 [place] [facility] PPSV23 (PNEUMOVAX) Branch Influenza High Dose 2018-05-08 Completed [facility] 00:00:00 [facility] Pneumococcal 2018-05-08 Completed [facility] o f Polysaccharide, 00:00:00 [place] [facility] PPSV23 (PNEUMOVAX) Branch Influenza High Dose 2018-05-08 Completed [facility] 00:00:00 [facility] Pneumococcal 2018-05-08 Completed [facility] o f Polysaccharide, 00:00:00 [place] [facility] PPSV23 (PNEUMOVAX) Branch Influenza High Dose 2018-05-08 Completed [facility] 00:00:00 [facility] Pneumococcal 2018-05-08 Completed [facility] o f Polysaccharide, 00:00:00 [place] [facility] PPSV23 (PNEUMOVAX) Branch Influenza High Dose 2018-05-08 Completed [facility] 00:00:00 [facility] Pneumococcal 2018-05-08 Completed [facility] o f Polysaccharide, 00:00:00 [place] [facility] PPSV23 (PNEUMOVAX) Branch Influenza High Dose 2018-05-08 Completed [facility] 00:00:00 [facility] Pneumococcal 2018-05-08 Completed [facility] o f Polysaccharide, 00:00:00 [place] [facility] PPSV23 (PNEUMOVAX) Branch Influenza High Dose 2018-05-08 Completed [facility] 00:00:00 [facility] Pneumococcal 2018-05-08 Completed [facility] o f Polysaccharide, 00:00:00 [place] [facility] PPSV23 (PNEUMOVAX) Branch Influenza High Dose 2018-05-08 Completed [facility] 00:00:00 [facility] Pneumococcal 2018-05-08 Completed [facility] o f Polysaccharide, 00:00:00 [place] [facility] PPSV23 (PNEUMOVAX) Branch Influenza High Dose 2018-05-08 Completed [facility] 00:00:00 [facility] Pneumococcal 2018-05-08 Completed [facility] o f Polysaccharide, 00:00:00 [place] [facility] PPSV23 (PNEUMOVAX) Branch Influenza High Dose 2018-05-08 Completed [facility] 00:00:00 [facility] Pneumococcal 2018-05-08 Completed [facility] o f Polysaccharide, 00:00:00 [place] [facility] PPSV23 (PNEUMOVAX) Branch Influenza High Dose 2018-05-08 Completed [facility] 00:00:00 [facility] Pneumococcal 2018-05-08 Completed [facility] o f Polysaccharide, 00:00:00 [place] [facility] PPSV23 (PNEUMOVAX) Branch Influenza High Dose 2018-05-08 Completed [facility] 00:00:00 [facility] Pneumococcal 2018-05-08 Completed [facility] o f Polysaccharide, 00:00:00 [place] [facility] PPSV23 (PNEUMOVAX) Branch Influenza High Dose 2018-05-08 Completed [facility] 00:00:00 [facility] Pneumococcal 2018-05-08 Completed [facility] o f Polysaccharide, 00:00:00 [place] [facility] PPSV23 (PNEUMOVAX) Branch Influenza High Dose 2018-05-08 Completed [facility] 00:00:00 [facility] Pneumococcal 2018-05-08 Completed [facility] o f Polysaccharide, 00:00:00 [place] [facility] PPSV23 (PNEUMOVAX) Branch Influenza High Dose 2018-05-08 Completed [facility] 00:00:00 [facility] Pneumococcal 2018-05-08 Completed [facility] o f Polysaccharide, 00:00:00 [place] [facility] PPSV23 (PNEUMOVAX) Branch Influenza High Dose 2018-05-08 Completed [facility] 00:00:00 [facility] Pneumococcal 2018-05-08 Completed [facility] o f Polysaccharide, 00:00:00 [place] [facility] PPSV23 (PNEUMOVAX) Branch Influenza High Dose 2018-05-08 Completed [facility] 00:00:00 [facility] Pneumococcal 2018-05-08 Completed [facility] o f Polysaccharide, 00:00:00 [place] [facility] PPSV23 (PNEUMOVAX) Branch Influenza High Dose 2018-05-08 Completed [facility] 00:00:00 [facility] Pneumococcal 2018-05-08 Completed [facility] o f Polysaccharide, 00:00:00 [place] [facility] PPSV23 (PNEUMOVAX) Branch Influenza High Dose 2018-05-08 Completed [facility] 00:00:00 [facility] Pneumococcal 2018-05-08 Completed [facility] o f Polysaccharide, 00:00:00 [place] [facility] PPSV23 (PNEUMOVAX) Branch Influenza High Dose 2018-05-08 Completed [facility] 00:00:00 [facility] Pneumococcal 2018-05-08 Completed [facility] o f Polysaccharide, 00:00:00 [place] [facility] PPSV23 (PNEUMOVAX) Branch Influenza High Dose 2018-05-08 Completed [facility] 00:00:00 [facility] Pneumococcal 2018-05-08 Completed [facility] o f Polysaccharide, 00:00:00 [place] [facility] PPSV23 (PNEUMOVAX) Branch Influenza High Dose 2018-05-08 Completed [facility] 00:00:00 [facility] Pneumococcal 2018-05-08 Completed [facility] o f Polysaccharide, 00:00:00 [place] [facility] PPSV23 (PNEUMOVAX) Branch Influenza High Dose 2018-05-08 Completed [facility] 00:00:00 [facility] Pneumococcal 2018-05-08 Completed [facility] o f Polysaccharide, 00:00:00 [place] [facility] PPSV23 (PNEUMOVAX) Branch Influenza High Dose 2018-05-08 Completed [facility] 00:00:00 [facility] Pneumococcal 2018-05-08 Completed [facility] o f Polysaccharide, 00:00:00 [place] [facility] PPSV23 (PNEUMOVAX) Branch Influenza High Dose 2018-05-08 Completed [facility] 00:00:00 [facility] Pneumococcal 2018-05-08 Completed [facility] o f Polysaccharide, 00:00:00 [place] [facility] PPSV23 (PNEUMOVAX) Branch Influenza High Dose 2018-05-08 Completed [facility] 00:00:00 [facility] Pneumococcal 2018-05-08 Completed [facility] o f Polysaccharide, 00:00:00 [place] [facility] PPSV23 (PNEUMOVAX) Branch Influenza High Dose 2018-05-08 Completed [facility] 00:00:00 [facility] Pneumococcal 2018-05-08 Completed [facility] o f Polysaccharide, 00:00:00 [place] [facility] PPSV23 (PNEUMOVAX) Branch Influenza High Dose 2018-05-08 Completed [facility] 00:00:00 [facility] Pneumococcal 2018-05-08 Completed [facility] o f Polysaccharide, 00:00:00 [place] [facility] PPSV23 (PNEUMOVAX) Branch Influenza High Dose 2018-05-08 Completed [facility] 00:00:00 [facility] Pneumococcal 2018-05-08 Completed [facility] o f Polysaccharide, 00:00:00 [place] [facility] PPSV23 (PNEUMOVAX) Branch Influenza High Dose 2018-05-08 Completed [facility] 00:00:00 [facility] Pneumococcal 2018-05-08 Completed [facility] o f Polysaccharide, 00:00:00 [place] [facility] PPSV23 (PNEUMOVAX) Branch Influenza High Dose 2018-05-08 Completed [facility] 00:00:00 [facility] Pneumococcal 2018-05-08 Completed [facility] o f Polysaccharide, 00:00:00 [place] [facility] PPSV23 (PNEUMOVAX) Branch Influenza High Dose 2018-05-08 Completed [facility] 00:00:00 [facility] Pneumococcal 2018-05-08 Completed [facility] o f Polysaccharide, 00:00:00 [place] [facility] PPSV23 (PNEUMOVAX) Branch Influenza High Dose 2018-05-08 Completed [facility] 00:00:00 [facility] Pneumococcal 2018-05-08 Completed [facility] o f Polysaccharide, 00:00:00 [place] [facility] PPSV23 (PNEUMOVAX) Branch Influenza High Dose 2018-05-08 Completed [facility] 00:00:00 [facility] Pneumococcal 2018-05-08 Completed [facility] o f Polysaccharide, 00:00:00 [place] [facility] PPSV23 (PNEUMOVAX) Branch Influenza High Dose 2018-05-08 Completed [facility] 00:00:00 [facility] Pneumococcal 2018-05-08 Completed [facility] o f Polysaccharide, 00:00:00 [place] [facility] PPSV23 (PNEUMOVAX) Branch Influenza High Dose 2018-05-08 Completed [facility] 00:00:00 [facility] Pneumococcal 2018-05-08 Completed [facility] o f Polysaccharide, 00:00:00 [place] [facility] PPSV23 (PNEUMOVAX) Branch Influenza High Dose 2018-05-08 Completed [facility] 00:00:00 [facility] Pneumococcal 2018-05-08 Completed [facility] o f Polysaccharide, 00:00:00 [place] [facility] PPSV23 (PNEUMOVAX) Branch Influenza High Dose 2018-05-08 Completed [facility] 00:00:00 [facility] Pneumococcal 2018-05-08 Completed [facility] o f Polysaccharide, 00:00:00 [place] [facility] PPSV23 (PNEUMOVAX) Branch Pneumococcal 13 2016-12-05 Completed Universit y of Conjugate, PCV13 00:00:00 [place] [facility] (Prevnar 13) Branch Influenza High Dose 2016-12-05 Completed [facility] 00:00:00 [facility] Pneumococcal 13 2016-12-05 Completed [facility]it y of Conjugate, PCV13 00:00:00 [place] [facility] (Prevnar 13) Branch Influenza High Dose 2016-12-05 Completed [facility] 00:00:00 [facility] Pneumococcal 13 2016-12-05 Completed Universit y of Conjugate, PCV13 00:00:00 [place] [facility] (Prevnar 13) Branch Influenza High Dose 2016-12-05 Completed [facility] 00:00:00 [facility] Pneumococcal 13 2016-12-05 Completed [facility]it y of Conjugate, PCV13 00:00:00 [place] [facility] (Prevnar 13) Branch Influenza High Dose 2016-12-05 Completed [facility] 00:00:00 [facility] Pneumococcal 13 2016-12-05 Completed [facility]it y of Conjugate, PCV13 00:00:00 [place] [facility] (Prevnar 13) Branch Influenza High Dose 2016-12-05 Completed [facility] 00:00:00 [facility] Pneumococcal 13 2016-12-05 Completed [facility]it y of Conjugate, PCV13 00:00:00 [place] [facility] (Prevnar 13) Branch Influenza High Dose 2016-12-05 Completed [facility] 00:00:00 [facility] Pneumococcal 13 2016-12-05 Completed [facility] of Conjugate, PCV13 00:00:00 [place] [facility] (Prevnar 13) Branch Influenza High Dose 2016-12-05 Completed [facility] 00:00:00 [facility] Pneumococcal 13 2016-12-05 Completed [facility] y of Conjugate, PCV13 00:00:00 [place] [facility] (Prevnar 13) Branch Influenza High Dose 2016-12-05 Completed [facility] 00:00:00 [facility] Pneumococcal 13 2016-12-05 Completed [facility] of Conjugate, PCV13 00:00:00 [place] [facility] (Prevnar 13) Branch Influenza High Dose 2016-12-05 Completed [facility] 00:00:00 [facility] Pneumococcal 13 2016-12-05 Completed [facility] of Conjugate, PCV13 00:00:00 [place] [facility] (Prevnar 13) Branch Influenza High Dose 2016-12-05 Completed [facility] 00:00:00 [facility] Pneumococcal 13 2016-12-05 Completed [facility] of Conjugate, PCV13 00:00:00 [place] [facility] (Prevnar 13) Branch Influenza High Dose 2016-12-05 Completed [facility] 00:00:00 [facility] Pneumococcal 13 2016-12-05 Completed [facility]it [facility] of Conjugate, PCV13 00:00:00 [place] [facility] (Prevnar 13) Branch Influenza High Dose 2016-12-05 Completed [facility] 00:00:00 [facility] Pneumococcal 13 2016-12-05 Completed [facility] of Conjugate, PCV13 00:00:00 [place] [facility] (Prevnar 13) Branch Influenza High Dose 2016-12-05 Completed [facility] 00:00:00 [facility] Pneumococcal 13 2016-12-05 Completed [facility] of Conjugate, PCV13 00:00:00 [place] [facility] (Prevnar 13) Branch Influenza High Dose 2016-12-05 Completed [facility] 00:00:00 [facility] Pneumococcal 13 2016-12-05 Completed [facility] of Conjugate, PCV13 00:00:00 [place] [facility] (Prevnar 13) Branch Influenza High Dose 2016-12-05 Completed [facility] 00:00:00 [facility] Pneumococcal 13 2016-12-05 Completed [facility] of Conjugate, PCV13 00:00:00 [place] [facility] (Prevnar 13) Branch Influenza High Dose 2016-12-05 Completed [facility] 00:00:00 [facility] Pneumococcal 13 2016-12-05 Completed [facility] of Conjugate, PCV13 00:00:00 [place] [facility] (Prevnar 13) Branch Influenza High Dose 2016-12-05 Completed [facility] 00:00:00 [facility] Pneumococcal 13 2016-12-05 Completed [facility] of Conjugate, PCV13 00:00:00 [place] [facility] (Prevnar 13) Branch Influenza High Dose 2016-12-05 Completed [facility] 00:00:00 [facility] Pneumococcal 13 2016-12-05 Completed [facility] of Conjugate, PCV13 00:00:00 [place] [facility] (Prevnar 13) Branch Influenza High Dose 2016-12-05 Completed [facility] 00:00:00 [facility] Pneumococcal 13 2016-12-05 Completed [facility] of Conjugate, PCV13 00:00:00 [place] [facility] (Prevnar 13) Branch Influenza High Dose 2016-12-05 Completed [facility] 00:00:00 [facility] Pneumococcal 13 2016-12-05 Completed [facility] of Conjugate, PCV13 00:00:00 [place] [facility] (Prevnar 13) Branch Influenza High Dose 2016-12-05 Completed [facility] 00:00:00 [facility] Pneumococcal 13 2016-12-05 Completed [facility] of Conjugate, PCV13 00:00:00 [place] [facility] (Prevnar 13) Branch Influenza High Dose 2016-12-05 Completed [facility] 00:00:00 [facility] Pneumococcal 13 2016-12-05 Completed [facility] of Conjugate, PCV13 00:00:00 [place] [facility] (Prevnar 13) Branch Influenza High Dose 2016-12-05 Completed [facility] 00:00:00 [facility] Pneumococcal 13 2016-12-05 Completed [facility] of Conjugate, PCV13 00:00:00 [place] [facility] (Prevnar 13) Branch Influenza High Dose 2016-12-05 Completed [facility] 00:00:00 [facility] Pneumococcal 13 2016-12-05 Completed [facility] of Conjugate, PCV13 00:00:00 [place] [facility] (Prevnar 13) Branch Influenza High Dose 2016-12-05 Completed [facility] 00:00:00 [facility] Pneumococcal 13 2016-12-05 Completed [facility] of Conjugate, PCV13 00:00:00 [place] [facility] (Prevnar 13) Branch Influenza High Dose 2016-12-05 Completed [facility] of 00:00:00 [facility] Pneumococcal 13 2016-12-05 Completed [facility] of Conjugate, PCV13 00:00:00 [place] [facility] (Prevnar 13) Branch Influenza High Dose 2016-12-05 Completed [facility] of 00:00:00 [facility] Pneumococcal 13 2016-12-05 Completed [facility] of Conjugate, PCV13 00:00:00 [place] [facility] (Prevnar 13) Branch Influenza High Dose 2016-12-05 Completed [facility] 00:00:00 [facility] Pneumococcal 13 2016-12-05 Completed [facility] of Conjugate, PCV13 00:00:00 [place] [facility] (Prevnar 13) Branch Influenza High Dose 2016-12-05 Completed [facility] 00:00:00 [facility] Pneumococcal 13 2016-12-05 Completed [facility] of Conjugate, PCV13 00:00:00 [place] [facility] (Prevnar 13) Branch Influenza High Dose 2016-12-05 Completed [facility] 00:00:00 [place] [facility] Pneumococcal 13 2016-12-05 Completed [facility] of Conjugate, PCV13 00:00:00 [place] [facility] (Prevnar 13) Branch Influenza High Dose 2016-12-05 Completed [facility] 00:00:00 [facility] Pneumococcal 13 2016-12-05 Completed [facility] of Conjugate, PCV13 00:00:00 [place] [facility] (Prevnar 13) Branch Influenza High Dose 2016-12-05 Completed [facility] 00:00:00 [facility] Pneumococcal 13 2016-12-05 Completed [facility] of Conjugate, PCV13 00:00:00 [place] [facility] (Prevnar 13) Branch Influenza High Dose 2016-12-05 Completed [facility] 00:00:00 [facility] Pneumococcal 13 2016-12-05 Completed [facility] of Conjugate, PCV13 00:00:00 [place] [facility] (Prevnar 13) Branch Influenza High Dose 2016-12-05 Completed [facility] 00:00:00 [facility] Pneumococcal 13 2016-12-05 Completed [facility] of Conjugate, PCV13 00:00:00 [place] [facility] (Prevnar 13) Branch Influenza High Dose 2016-12-05 Completed [facility] 00:00:00 [facility] Pneumococcal 13 2016-12-05 Completed [facility] of Conjugate, PCV13 00:00:00 [place] [facility] (Prevnar 13) Branch Influenza High Dose 2016-12-05 Completed [facility] 00:00:00 [facility] Pneumococcal 13 2016-12-05 Completed [facility] of Conjugate, PCV13 00:00:00 [place] [facility] (Prevnar 13) Branch Influenza High Dose 2016-12-05 Completed [facility] 00:00:00 [facility] Pneumococcal 13 2016-12-05 Completed [facility] of Conjugate, PCV13 00:00:00 [place] [facility] (Prevnar 13) Branch Influenza High Dose 2016-12-05 Completed [facility] 00:00:00 [facility] Pneumococcal 13 2016-12-05 Completed [facility] of Conjugate, PCV13 00:00:00 [place] [facility] (Prevnar 13) Branch Influenza High Dose 2016-12-05 Completed [facility] 00:00:00 [facility] Pneumococcal 13 2016-12-05 Completed [facility] of Conjugate, PCV13 00:00:00 [place] [facility] (Prevnar 13) Branch Influenza High Dose 2016-12-05 Completed [facility] 00:00:00 [facility] Pneumococcal 13 2016-12-05 Completed [facility] of Conjugate, PCV13 00:00:00 [place] [facility] (Prevnar 13) Branch Influenza High Dose 2016-12-05 Completed [facility] 00:00:00 [facility] Pneumococcal 13 2016-12-05 Completed [facility] of Conjugate, PCV13 00:00:00 [place] [facility] (Prevnar 13) Branch Influenza High Dose 2016-12-05 Completed [facility] 00:00:00 [facility] Pneumococcal 13 2016-12-05 Completed [facility] of Conjugate, PCV13 00:00:00 [place] [facility] (Prevnar 13) Branch Influenza High Dose 2016-12-05 Completed [facility] 00:00:00 [facility] Pneumococcal 13 2016-12-05 Completed [facility] of Conjugate, PCV13 00:00:00 [place] [facility] (Prevnar 13) Branch Influenza High Dose 2016-12-05 Completed [facility] 00:00:00 [facility] Pneumococcal 13 2016-12-05 Completed [facility] y of Conjugate, PCV13 00:00:00 [place] [facility] (Prevnar 13) Branch Influenza High Dose 2016-12-05 Completed Unive rsity of 00:00:00 [facility] Pneumococcal 13 2016-12-05 Completed Universit y of Conjugate, PCV13 00:00:00 [place] [facility] (Prevnar 13) Branch Influenza High Dose 2016-12-05 Completed Unive rsity of 00:00:00 [facility] Pneumococcal 13 2016-12-05 Completed Universit y of Conjugate, PCV13 00:00:00 [place] [facility] (Prevnar 13) Branch Influenza High Dose 2016-12-05 Completed Unive rsity of 00:00:00 [facility] Pneumococcal 13 2016-12-05 Completed Universit y of Conjugate, PCV13 00:00:00 [place] [facility] (Prevnar 13) Branch Influenza High Dose 2016-12-05 Completed Unive rsity of 00:00:00 [facility] Pneumococcal 13 2016-12-05 Completed Universit y of Conjugate, PCV13 00:00:00 [place] [facility] (Prevnar 13) Branch Influenza High Dose 2016-12-05 Completed Unive rsity of 00:00:00 [facility] Pneumococcal 13 2016-12-05 Completed Universit y of Conjugate, PCV13 00:00:00 [place] [facility] (Prevnar 13) Branch Influenza High Dose 2016-12-05 Completed [facility]ive rsity of 00:00:00 [facility] Pneumococcal 13 2016-12-05 Completed Universit y of Conjugate, PCV13 00:00:00 [place] [facility] (Prevnar 13) Branch Influenza High Dose 2016-12-05 Completed [facility]ive rsity of 00:00:00 [facility] Pneumococcal 13 2016-12-05 Completed Universit y of Conjugate, PCV13 00:00:00 [place] [facility] (Prevnar 13) Branch Influenza High Dose 2016-12-05 Completed [facility]ive rsity of 00:00:00 [facility] Pneumococcal 13 2016-12-05 Completed Universit y of Conjugate, PCV13 00:00:00 [place] [facility] (Prevnar 13) Branch Influenza High Dose 2016-12-05 Completed [facility]ive rs[facility] of 00:00:00 [facility] Pneumococcal 13 2016-12-05 Completed Universit y of Conjugate, PCV13 00:00:00 [place] [facility] (Prevnar 13) Branch Influenza High Dose 2016-12-05 Completed [facility]ive rs[facility] of 00:00:00 [facility] Pneumococcal 13 2016-12-05 Completed Universit y of Conjugate, PCV13 00:00:00 [place] [facility] (Prevnar 13) Branch Influenza High Dose 2016-12-05 Completed [facility]ive rsity of 00:00:00 [facility] Pneumococcal 13 2016-12-05 Completed Universit y of Conjugate, PCV13 00:00:00 [place] [facility] (Prevnar 13) Branch Influenza High Dose 2016-12-05 Completed [facility] rs[facility] of 00:00:00 [facility] Pneumococcal 13 2016-12-05 Completed [facility]it y of Conjugate, PCV13 00:00:00 [place] [facility] (Prevnar 13) Branch Influenza High Dose 2016-12-05 Completed [facility]ive rsity of 00:00:00 [facility] Pneumococcal 13 2016-12-05 Completed [facility]it y of Conjugate, PCV13 00:00:00 [place] [facility] (Prevnar 13) Branch Influenza High Dose 2016-12-05 Completed [facility]ive rsity of 00:00:00 [facility] Pneumococcal 13 2016-12-05 Completed [facility]it y of Conjugate, PCV13 00:00:00 [place] [facility] (Prevnar 13) Branch Influenza High Dose 2016-12-05 Completed [facility] rsity of 00:00:00 [facility] Pneumococcal 13 2016-12-05 Completed [facility]it y of Conjugate, PCV13 00:00:00 [place] [facility] (Prevnar 13) Branch Influenza High Dose 2016-12-05 Completed [facility]ive rsity of 00:00:00 [facility] Pneumococcal 13 2016-12-05 Completed Universit y of Conjugate, PCV13 00:00:00 [place] [facility] (Prevnar 13) Branch Influenza High Dose 2016-12-05 Completed [facility] rs[facility] of 00:00:00 [facility] Pneumococcal 13 2016-12-05 Completed [facility]it y of Conjugate, PCV13 00:00:00 [place] [facility] (Prevnar 13) Branch Influenza High Dose 2016-12-05 Completed [facility] rs[facility] of 00:00:00 [facility] Pneumococcal 13 2016-12-05 Completed [facility]it y of Conjugate, PCV13 00:00:00 [place] [facility] (Prevnar 13) Branch Influenza High Dose 2016-12-05 Completed [facility]ive rs[facility] of 00:00:00 [facility] Pneumococcal 13 2016-12-05 Completed [facility]it y of Conjugate, PCV13 00:00:00 [place] [facility] (Prevnar 13) Branch Influenza High Dose 2016-12-05 Completed [facility]ive rs[facility] of 00:00:00 [facility] Pneumococcal 13 2016-12-05 Completed [facility]it y of Conjugate, PCV13 00:00:00 [place] [facility] (Prevnar 13) Branch Influenza High Dose 2016-12-05 Completed [facility]ive rsity of 00:00:00 [facility] Pneumococcal 13 2016-12-05 Completed Universit y of Conjugate, PCV13 00:00:00 [place] [facility] (Prevnar 13) Branch Influenza High Dose 2016-12-05 Completed [facility]ive rsity of 00:00:00 [facility] Pneumococcal 13 2016-12-05 Completed [facility]it y of Conjugate, PCV13 00:00:00 [place] [facility] (Prevnar 13) Branch Influenza High Dose 2016-12-05 Completed [facility]ive rsity of 00:00:00 [facility] Pneumococcal 13 2016-12-05 Completed [facility]it y of Conjugate, PCV13 00:00:00 [place] [facility] (Prevnar 13) Branch Influenza High Dose 2016-12-05 Completed [facility]ive rsity of 00:00:00 [facility] Pneumococcal 13 2016-12-05 Completed Universit y of Conjugate, PCV13 00:00:00 [place] [facility] (Prevnar 13) Branch Influenza High Dose 2016-12-05 Completed [facility]ive rsity of 00:00:00 [facility] Pneumococcal 13 2016-12-05 Completed Universit y of Conjugate, PCV13 00:00:00 [place] [facility] (Prevnar 13) Branch Influenza High Dose 2016-12-05 Completed [facility]ive rsity of 00:00:00 [facility] Pneumococcal 13 2016-12-05 Completed Universit y of Conjugate, PCV13 00:00:00 [place] [facility] (Prevnar 13) Branch Influenza High Dose 2016-12-05 Completed [facility]ive rsity of 00:00:00 [facility] Pneumococcal 13 2016-12-05 Completed Universit y of Conjugate, PCV13 00:00:00 [place] [facility] (Prevnar 13) Branch Influenza High Dose 2016-12-05 Completed [facility]ive rsity of 00:00:00 [facility] Pneumococcal 13 2016-12-05 Completed [facility]it y of Conjugate, PCV13 00:00:00 [place] [facility] (Prevnar 13) Branch Influenza High Dose 2016-12-05 Completed [facility]ive rsity of 00:00:00 [facility] Pneumococcal 13 2016-12-05 Completed [facility]it y of Conjugate, PCV13 00:00:00 [place] [facility] (Prevnar 13) Branch Influenza High Dose 2016-12-05 Completed [facility]ive rsity of 00:00:00 [facility] Pneumococcal 13 2016-12-05 Completed [facility]it y of Conjugate, PCV13 00:00:00 [place] [facility] (Prevnar 13) Branch Influenza High Dose 2016-12-05 Completed [facility]ive rsity of 00:00:00 [facility] Pneumococcal 13 2016-12-05 Completed [facility]it y of Conjugate, PCV13 00:00:00 [place] [facility] (Prevnar 13) Branch Influenza High Dose 2016-12-05 Completed [facility]ive rsity of 00:00:00 [facility] Pneumococcal 13 2016-12-05 Completed [facility]it y of Conjugate, PCV13 00:00:00 [place] [facility] (Prevnar 13) Branch Influenza High Dose 2016-12-05 Completed [facility]ive rsity of 00:00:00 [facility] Pneumococcal 13 2016-12-05 Completed Universit y of Conjugate, PCV13 00:00:00 [place] [facility] (Prevnar 13) Branch Influenza High Dose 2016-12-05 Completed [facility]ive [facility]ity of 00:00:00 [facility] Pneumococcal 13 2016-12-05 Completed Universit y of Conjugate, PCV13 00:00:00 [place] [facility] (Prevnar 13) Branch Influenza High Dose 2016-12-05 Completed [facility]ive rsity of 00:00:00 [facility] Pneumococcal 13 2016-12-05 Completed Universit y of Conjugate, PCV13 00:00:00 [place] [facility] (Prevnar 13) Branch Influenza High Dose 2016-12-05 Completed [facility]ive rsity of 00:00:00 [facility] Pneumococcal 13 2016-12-05 Completed [facility]it y of Conjugate, PCV13 00:00:00 [place] [facility] (Prevnar 13) Branch Influenza High Dose 2016-12-05 Completed [facility]ive rsity of 00:00:00 [facility] Pneumococcal 13 2016-12-05 Completed Universit y of Conjugate, PCV13 00:00:00 [place] [facility] (Prevnar 13) Branch Influenza High Dose 2016-12-05 Completed [facility]ive rsity of 00:00:00 [facility] Pneumococcal 13 2016-12-05 Completed Universit y of Conjugate, PCV13 00:00:00 [place] [facility] (Prevnar 13) Branch Influenza High Dose 2016-12-05 Completed [facility]ive rsity of 00:00:00 [facility] Pneumococcal 13 2016-12-05 Completed Universit y of Conjugate, PCV13 00:00:00 [place] [facility] (Prevnar 13) Branch Influenza High Dose 2016-12-05 Completed [facility]ive rsity of 00:00:00 [facility] Pneumococcal 13 2016-12-05 Completed [facility]it y of Conjugate, PCV13 00:00:00 [place] [facility] (Prevnar 13) Branch Influenza High Dose 2016-12-05 Completed [facility]ive rsity of 00:00:00 [facility] Pneumococcal 13 2016-12-05 Completed [facility]it y of Conjugate, PCV13 00:00:00 [place] [facility] (Prevnar 13) Branch Influenza High Dose 2016-12-05 Completed [facility]ive rsity of 00:00:00 [facility] Pneumococcal 13 2016-12-05 Completed [facility]it y of Conjugate, PCV13 00:00:00 [place] [facility] (Prevnar 13) Branch Influenza High Dose 2016-12-05 Completed [facility]ive rsity of 00:00:00 [facility] Pneumococcal 13 2016-12-05 Completed [facility]it y of Conjugate, PCV13 00:00:00 [place] [facility] (Prevnar 13) Branch Influenza High Dose 2016-12-05 Completed [facility]ive [facility]ity of 00:00:00 [facility] Pneumococcal 13 2016-12-05 Completed [facility]it y of Conjugate, PCV13 00:00:00 [place] [facility] (Prevnar 13) Branch Influenza High Dose 2016-12-05 Completed [facility]ive rsity of 00:00:00 [facility] Pneumococcal 13 2016-12-05 Completed [facility]it y of Conjugate, PCV13 00:00:00 [place] [facility] (Prevnar 13) Branch Influenza High Dose 2016-12-05 Completed [facility] rsity of 00:00:00 [facility] Pneumococcal 13 2016-12-05 Completed [facility]it y of Conjugate, PCV13 00:00:00 [place] [facility] (Prevnar 13) Branch Influenza High Dose 2016-12-05 Completed [facility] rs[facility] of 00:00:00 [facility] Pneumococcal 13 2016-12-05 Completed [facility]it y of Conjugate, PCV13 00:00:00 [place] [facility] (Prevnar 13) Branch Influenza High Dose 2016-12-05 Completed [facility]ive rsity of 00:00:00 [facility] Pneumococcal 13 2016-12-05 Completed [facility]it y of Conjugate, PCV13 00:00:00 [place] [facility] (Prevnar 13) Branch Influenza High Dose 2016-12-05 Completed [facility]ive [facility]ity of 00:00:00 [facility] Pneumococcal 13 2016-12-05 Completed [facility]it y of Conjugate, PCV13 00:00:00 [place] [facility] (Prevnar 13) Branch Influenza High Dose 2016-12-05 Completed [facility]ive [facility]ity of 00:00:00 [facility] Pneumococcal 13 2016-12-05 Completed [facility]it y of Conjugate, PCV13 00:00:00 [place] [facility] (Prevnar 13) Branch Influenza High Dose 2016-12-05 Completed [facility]ive rsity of 00:00:00 [facility] Pneumococcal 13 2016-12-05 Completed Universit y of Conjugate, PCV13 00:00:00 [place] [facility] (Prevnar 13) Branch Influenza High Dose 2016-12-05 Completed [facility] 00:00:00 [place] [facility] Pneumococcal 13 2016-12-05 Completed Universit y of Conjugate, PCV13 00:00:00 [place] [facility] (Prevnar 13) Branch Influenza High Dose 2016-12-05 Completed [facility] of 00:00:00 [facility] Pneumococcal 13 2016-12-05 Completed Universit y of Conjugate, PCV13 00:00:00 [place] [facility] (Prevnar 13) Branch Influenza High Dose 2016-12-05 Completed [facility]ive rsity of 00:00:00 [facility] Pneumococcal 13 2016-12-05 Completed Universit y of Conjugate, PCV13 00:00:00 [place] [facility] (Prevnar 13) Branch Influenza High Dose 2016-12-05 Completed [facility] of 00:00:00 [facility] Pneumococcal 13 2016-12-05 Completed Universit y of Conjugate, PCV13 00:00:00 [place] [facility] (Prevnar 13) Branch Influenza High Dose 2016-12-05 Completed [facility]ive rsity of 00:00:00 [facility] Pneumococcal 13 2016-12-05 Completed [facility]it y of Conjugate, PCV13 00:00:00 [place] [facility] (Prevnar 13) Branch Influenza High Dose 2016-12-05 Completed [facility]ive rsity of 00:00:00 [facility] Pneumococcal 13 2016-12-05 Completed [facility]it y of Conjugate, PCV13 00:00:00 [place] [facility] (Prevnar 13) Branch Influenza High Dose 2016-12-05 Completed [facility]ive rsity of 00:00:00 [facility] Pneumococcal 13 2016-12-05 Completed [facility]it y of Conjugate, PCV13 00:00:00 [place] [facility] (Prevnar 13) Branch Influenza High Dose 2016-12-05 Completed [facility]ive rsity of 00:00:00 [facility] Pneumococcal 13 2016-12-05 Completed Universit y of Conjugate, PCV13 00:00:00 [place] [facility] (Prevnar 13) Branch Influenza High Dose 2016-12-05 Completed [facility]ive rsity of 00:00:00 [facility] Pneumococcal 13 2016-12-05 Completed [facility]it y of Conjugate, PCV13 00:00:00 [place] [facility] (Prevnar 13) Branch Influenza High Dose 2016-12-05 Completed [facility]ive rsity of 00:00:00 [facility] Pneumococcal 13 2016-12-05 Completed Universit y of Conjugate, PCV13 00:00:00 [place] [facility] (Prevnar 13) Branch Influenza High Dose 2016-12-05 Completed [facility]ive rsity of 00:00:00 [facility] Pneumococcal 13 2016-12-05 Completed [facility]it y of Conjugate, PCV13 00:00:00 [place] [facility] (Prevnar 13) Branch Influenza High Dose 2016-12-05 Completed [facility]ive rsity of 00:00:00 [facility] Pneumococcal 13 2016-12-05 Completed [facility] y of Conjugate, PCV13 00:00:00 [place] [facility] (Prevnar 13) Branch Influenza High Dose 2016-12-05 Completed [facility]ity of 00:00:00 [facility] Pneumococcal 13 2016-12-05 Completed [facility]it y of Conjugate, PCV13 00:00:00 [place] [facility] (Prevnar 13) Branch Influenza High Dose 2016-12-05 Completed [facility]ive rsity of 00:00:00 [facility] Pneumococcal 13 2016-12-05 Completed [facility] y of Conjugate, PCV13 00:00:00 [place] [facility] (Prevnar 13) Branch Influenza High Dose 2016-12-05 Completed [facility] rsity of 00:00:00 [facility] Pneumococcal 13 2016-12-05 Completed [facility] y of Conjugate, PCV13 00:00:00 [place] [facility] (Prevnar 13) Branch Influenza High Dose 2016-12-05 Completed [facility]ive rsity of 00:00:00 [facility] Pneumococcal 13 2016-12-05 Completed [facility] y of Conjugate, PCV13 00:00:00 [place] [facility] (Prevnar 13) Branch Influenza High Dose 2016-12-05 Completed [facility] rsity of 00:00:00 [facility] Pneumococcal 13 2016-12-05 Completed [facility] y of Conjugate, PCV13 00:00:00 [place] [facility] (Prevnar 13) Branch Influenza High Dose 2016-12-05 Completed [facility] rsity of 00:00:00 [facility] Pneumococcal 13 2016-12-05 Completed [facility] y of Conjugate, PCV13 00:00:00 [place] [facility] (Prevnar 13) Branch Influenza High Dose 2016-12-05 Completed [facility]ive rsity of 00:00:00 [facility] Pneumococcal 13 2016-12-05 Completed [facility]it y of Conjugate, PCV13 00:00:00 [place] [facility] (Prevnar 13) Branch Influenza High Dose 2016-12-05 Completed [facility]ive rsity of 00:00:00 [facility] Pneumococcal 13 2016-12-05 Completed [facility] y of Conjugate, PCV13 00:00:00 [place] [facility] (Prevnar 13) Branch Influenza High Dose 2016-12-05 Completed [facility]ive rsity of 00:00:00 [facility] Pneumococcal 13 2016-12-05 Completed [facility]it y of Conjugate, PCV13 00:00:00 [place] [facility] (Prevnar 13) Branch Influenza High Dose 2016-12-05 Completed [facility]ive rsity of 00:00:00 [facility] Pneumococcal 13 2016-12-05 Completed [facility]it y of Conjugate, PCV13 00:00:00 [place] [facility] (Prevnar 13) Branch Influenza High Dose 2016-12-05 Completed [facility]ive rsity of 00:00:00 [facility] Pneumococcal 13 2016-12-05 Completed [facility] y of Conjugate, PCV13 00:00:00 [place] [facility] (Prevnar 13) Branch Influenza High Dose 2016-12-05 Completed [facility]ive rsity of 00:00:00 [facility] influenza virus 2015-01-20 Completed [facility] vaccine, 21:59:00 inactivated influenza virus 2015-01-20 Completed [facility] vaccine, 21:59:00 inactivated influenza virus 2015-01-20 Completed [facility], 21:59:00 inactivated influenza virus 2015-01-20 Completed [facility] vaccine, 21:59:00 inactivated influenza virus 2015-01-20 Completed [facility] vaccine, 21:59:00 inactivated Hx influenza 2012-12-29 Completed [facility] vaccine-unspecified 14:50:54 <sup>1</sup> Hx influenza 2012-12-29 Completed [facility] vaccine-unspecified 14:50:54 <sup>2</sup> Hx influenza 2012-12-29 Completed [...] 14:50:54 <sup>2</sup> influenza virus 2012-12-29 Completed [facility] vaccine, 05:00:00 inactivated<sup>2</ sup> influenza virus 2012-12-29 Completed [facility] vaccine, 05:00:00 inactivated<sup>1</ sup> influenza virus 2012-12-29 Completed [facility] vaccine, 05:00:00 inactivated<sup>1</ sup> influenza virus 2012-12-29 Completed [facility] vaccine, 05:00:00 inactivated<sup>2</ sup> influenza virus 2012-12-29 Completed [facility] vaccine, 05:00:00 inactivated<sup>1</ sup> influenza virus 2012-12-29 Completed [facility] vaccine, 05:00:00 inactivated<sup>2</ sup> influenza virus 2012-12-29 Completed [facility] vaccine, 05:00:00 inactivated<sup>1</ sup> influenza virus 2012-12-29 Completed [facility] vaccine, 05:00:00 inactivated<sup>2</ sup> influenza virus 2012-12-29 Completed [facility] vaccine, 05:00:00 inactivated<sup>2</ sup> influenza virus 2012-12-29 Completed [facility] vaccine, 05:00:00 inactivated<sup>1</ sup> pneumococcal 2011-11-23 Completed [facility] 23-valent 14:50:54 vaccine<sup>3</sup> pneumococcal 2011-11-23 Completed [facility] 23-valent 14:50:54 vaccine<sup>3</sup> pneumococcal 2011-11-23 Completed [facility] 23-valent 14:50:54 vaccine<sup>3</sup> pneumococcal 2011-11-23 Completed [facility] 23-valent 14:50:54 vaccine<sup>3</sup> pneumococcal 2011-11-23 Completed [facility] 23-valent 14:50:54 vaccine<sup>3</sup> influenza virus Unknown Completed [facility] vaccine, inactivated Hx influenza Unknown Completed [facility] vaccine-unspecified <sup>1</sup> Hx influenza Unknown Completed [facility] vaccine-unspecified <sup>2</sup> influenza virus Unknown Completed [facility] vaccine, inactivated<sup>2</ sup> influenza virus Unknown Completed [facility] vaccine, inactivated<sup>1</ sup> pneumococcal Unknown Completed [facility] 23-valent vaccine<sup>3</sup> influenza virus Unknown Completed [facility] vaccine, inactivated Hx influenza Unknown Completed [facility] vaccine-unspecified <sup>1</sup> Hx influenza Unknown Completed [facility] vaccine-unspecified <sup>2</sup> influenza virus Unknown Completed [facility] vaccine, inactivated<sup>2</ sup> influenza virus Unknown Completed [facility] vaccine, inactivated<sup>1</ sup> pneumococcal Unknown Completed [facility] 23-valent vaccine<sup>3</sup> Pneumococcal 13 Unknown Completed Universit y of Conjugate, PCV13 [facility] dical (Prevnar 13) Branch Influenza High Dose Unknown Completed Unive rsity of [facility] Influenza High Dose Unknown Completed [facility]ive rsity of [facility] Pneumococcal Unknown Completed University o f Polysaccharide, [place] [facility] PPSV23 (PNEUMOVAX) Branch Influenza High Dose Unknown Completed [facility]ive rsity of [facility] Influenza High Dose Unknown Completed Unive rsity of [facility] SARS-COV-2 COVID-19 Unknown Completed Unive rsity of PFIZER VACCINE [facility] SARS-COV-2 COVID-19 Unknown Completed Unive rsity of PFIZER VACCINE [facility] Influenza Virus Unknown Completed Universit y of Vaccine [facility] Influenza Virus Unknown Com[facility] 65+ (FLUAD) Pneumococcal 13 Unknown Completed [facility] of Conjugate, PCV13 [place] [facility] (Prevnar 13) Branch Influenza High Dose Unknown Completed [facility]ive rsity of [facility] Influenza High Dose Unknown Completed [facility]ive rsity of [facility] Pneumococcal Unknown Completed [facility] o f Polysaccharide, [place] [facility] PPSV23 (PNEUMOVAX) Branch Influenza High Dose Unknown Completed Unive rsity of [facility] Influenza High Dose Unknown Completed [facility]ive rsity of [facility] SARS-COV-2 COVID-19 Unknown Completed Unive rsity of PFIZER VACCINE [facility] SARS-COV-2 COVID-19 Unknown Completed Unive rsity of PFIZER VACCINE [facility] Influenza Virus Unknown Completed [facility] Vaccine [facility] Influenza Virus Unknown Completed [facility] Vaccine,[facility] [place] [facility],preserve Free [facility] 65+ (FLUAD) Pneumococcal 13 Unknown Completed [facility] of Conjugate, PCV13 [place] [facility] (Prevnar 13) Branch Influenza High Dose Unknown Completed [facility]ive rsity of [facility] Influenza High Dose Unknown Completed [facility]ive rsity of [facility] Pneumococcal Unknown Completed University o f Polysaccharide, [place] [facility] PPSV23 (PNEUMOVAX) Branch Influenza High Dose Unknown Completed [facility]ive rsity of [facility] Branch Influenza High Dose Unknown Completed Unive rsity of [facility] SARS-COV-2 COVID-19 Unknown Completed Unive rsity of PFIZER VACCINE [facility] SARS-COV-2 COVID-19 Unknown Completed Unive rsity of PFIZER VACCINE [facility] Influenza Virus Unknown Completed Universit y of Vaccine [facility] Influenza Virus Unknown Completed [facility] Vaccine,quad [place] [facility],preserve Free [facility] 65+ (FLUAD) Pneumococcal 13 Unknown Completed [facility] of Conjugate, PCV13 [place] [facility] (Prevnar 13) Branch Influenza High Dose Unknown Completed Unive rsity of [facility] Influenza High Dose Unknown Completed Unive rsity of [facility] Pneumococcal Unknown Completed University o f Polysaccharide, [place] [facility] PPSV23 (PNEUMOVAX) Branch Influenza High Dose Unknown Completed [facility] Influenza High Dose Unknown Completed Unive rsity of [facility] SARS-COV-2 COVID-19 Unknown Completed [facility] of PFIZER VACCINE [facility] SARS-COV-2 COVID-19 Unknown Completed [facility] of PFIZER VACCINE [facility] Influenza Virus Unknown Completed [facility]it y of Vaccine [facility] Influenza Virus Unknown Completed [facility] Vaccine,quad [place] [facility]preserve Free [facility] 65+ (FLUAD) Pneumococcal 13 Unknown Completed [facility]it [facility] of Conjugate, PCV13 [place] [facility] (Prevnar 13) Branch Influenza High Dose Unknown Completed [facility] of [facility] Influenza High Dose Unknown Completed [facility] Pneumococcal Unknown Completed University o f Polysaccharide, [place] [facility] PPSV23 (PNEUMOVAX) Branch Influenza High Dose Unknown Completed [facility] [place] [facility] Influenza High Dose Unknown Completed [facility] of [facility] SARS-COV-2 COVID-19 Unknown Completed [facility] PFIZER VACCINE [facility] SARS-COV-2 COVID-19 Unknown Completed [facility] PFIZER VACCINE [facility] Influenza Virus Unknown Completed [facility] Vaccine [facility] Influenza Virus Unknown Completed [facility] Vaccine,quad [place] [facility] 65+ (FLUAD) Pneumococcal 13 Unknown Completed [facility] Conjugate, PCV13 [place] [facility] (Prevnar 13) Branch Influenza High Dose Unknown Completed [facility] Influenza High Dose Unknown Completed [facility] Pneumococcal Unknown Completed University o f Polysaccharide, [place] [facility] PPSV23 (PNEUMOVAX) Branch Influenza High Dose Unknown Completed [facility] of [facility] Influenza High Dose Unknown Completed [facility] of [facility] SARS-COV-2 COVID-19 Unknown Completed [facility] of PFIZER VACCINE [facility] SARS-COV-2 COVID-19 Unknown Completed [facility] rs[facility] of PFIZER VACCINE [facility] Influenza Virus Unknown Completed [facility] Vaccine [facility] Influenza Virus Unknown Completed [facility] Vaccine,quad [place] [facility] 65+ (FLUAD) Pneumococcal 13 Unknown Completed [facility] Conjugate, PCV13 [place] [facility] (Prevnar 13) Branch Influenza High Dose Unknown Completed [facility] of [facility] Influenza High Dose Unknown Completed [facility] of [facility] Pneumococcal Unknown Completed University o f Polysaccharide, [place] [facility] PPSV23 (PNEUMOVAX) Branch Influenza High Dose Unknown Completed [facility] Influenza High Dose Unknown Completed [facility] of [facility] [place] [facility] SARS-COV-2 COVID-19 Unknown Completed [facility] of PFIZER VACCINE [facility] SARS-COV-2 COVID-19 Unknown Completed [facility] of PFIZER VACCINE [facility] Influenza Virus Unknown Completed [facility] Vaccine [facility] Influenza Virus Unknown Completed [facility] Vaccine,quad [place] [facility] 65+ (FLUAD) Pneumococcal 13 Unknown Completed [facility] Conjugate, PCV13 [place] [facility] (Prevnar 13) Branch Influenza High Dose Unknown Completed [facility] Influenza High Dose Unknown Completed [facility] [place] [facility] Pneumococcal Unknown Completed [facility] o f Polysaccharide, [place] [facility] PPSV23 (PNEUMOVAX) Branch Influenza High Dose Unknown Completed [facility] Influenza High Dose Unknown Completed [facility] of [facility] [place] [facility] SARS-COV-2 COVID-19 Unknown Completed [facility] of PFIZER VACCINE [facility] SARS-COV-2 COVID-19 Unknown Completed [facility] of PFIZER VACCINE [facility] Influenza Virus Unknown Completed [facility] Vaccine [place] [facility] Influenza Virus Unknown Completed [facility] Vaccine,quad [place] [facility] 65+ (FLUAD) Pneumococcal 13 Unknown Completed [facility] of Conjugate, PCV13 [place] [facility] (Prevnar 13) Branch Influenza High Dose Unknown Completed [facility] Influenza High Dose Unknown Completed [facility] Pneumococcal Unknown Completed University o f Polysaccharide, [place] [facility] PPSV23 (PNEUMOVAX) Branch Influenza High Dose Unknown Completed [facility] Influenza High Dose Unknown Completed [facility] of [facility] [place] [facility] SARS-COV-2 COVID-19 Unknown Completed [facility] of PFIZER VACCINE [facility] SARS-COV-2 COVID-19 Unknown Completed [facility] rs[facility] of PFIZER VACCINE [facility] Influenza Virus Unknown Completed [facility] Vaccine [facility] Influenza Virus Unknown Completed [facility] Vaccine,quad [place] [facility] 65+ (FLUAD) Pneumococcal 13 Unknown Completed [facility] of Conjugate, PCV13 [place] [facility] (Prevnar 13) Branch Influenza High Dose Unknown Completed [facility] Influenza High Dose Unknown Completed [facility] Pneumococcal Unknown Completed University o f Polysaccharide, [place] [facility] PPSV23 (PNEUMOVAX) Branch Influenza High Dose Unknown Completed [facility] Influenza High Dose Unknown Completed [facility] of [facility] [place] [facility] SARS-COV-2 COVID-19 Unknown Completed [facility]ive rsity of PFIZER VACCINE [facility] SARS-COV-2 COVID-19 Unknown Completed [facility] of PFIZER VACCINE [facility] Influenza Virus Unknown Completed [facility] Vaccine [place] [facility] Influenza Virus Unknown Completed [facility] Vaccine,quad [place] [facility] 65+ (FLUAD) Pneumococcal 13 Unknown Completed [facility] of Conjugate, PCV13 [place] [facility] (Prevnar 13) Branch Influenza High Dose Unknown Completed [facility] Influenza High Dose Unknown Completed [facility] Pneumococcal Unknown Completed University o f Polysaccharide, [place] [facility] PPSV23 (PNEUMOVAX) Branch Influenza High Dose Unknown Completed [facility] of [facility] Influenza High Dose Unknown Completed [facility] of [facility] [place] [facility] SARS-COV-2 COVID-19 Unknown Completed [facility]ive rsity of PFIZER VACCINE [facility] SARS-COV-2 COVID-19 Unknown Completed [facility]ive rsity of PFIZER VACCINE [facility] Influenza Virus Unknown Completed [facility] Vaccine [facility] Influenza Virus Unknown [facility] 65+ (FLUAD) Pneumococcal 13 Unknown Completed [facility] of Conjugate, PCV13 [place] [facility] (Prevnar 13) Branch Influenza High Dose Unknown Completed [facility] of [facility] Influenza High Dose Unknown Completed [facility] of [facility] Pneumococcal Unknown Completed University o f Polysaccharide, [place] [facility] PPSV23 (PNEUMOVAX) Branch Influenza High Dose Unknown Completed [facility] of [facility] Influenza High Dose Unknown Completed [facility]ive [facility]ity of [facility] SARS-COV-2 COVID-19 Unknown Completed [facility]ive rsity of PFIZER VACCINE [facility] SARS-COV-2 COVID-19 Unknown Completed [facility] rs[facility] of PFIZER VACCINE [facility] Influenza Virus Unknown Completed [facility] Vaccine [facility] Pneumococcal 13 Unknown Completed [facility] of Conjugate, PCV13 [place] [facility] (Prevnar 13) Branch Influenza High Dose Unknown Completed [facility] Influenza High Dose Unknown Completed [facility] Pneumococcal Unknown Completed University o f Polysaccharide, [place] [facility] PPSV23 (PNEUMOVAX) Branch Influenza High Dose Unknown Completed [facility] Influenza High Dose Unknown Completed [facility] of [facility] [place] [facility] SARS-COV-2 COVID-19 Unknown Completed [facility]ive rsity of PFIZER VACCINE [facility] SARS-COV-2 COVID-19 Unknown Completed [facility]ive rsity of PFIZER VACCINE [facility] Influenza Virus Unknown Completed [facility] Vaccine [facility] Pneumococcal 13 Unknown Completed [facility] y of Conjugate, PCV13 [place] [facility] (Prevnar 13) Branch Influenza High Dose Unknown Completed [facility] Influenza High Dose Unknown Completed [facility] Pneumococcal Unknown Completed University o f Polysaccharide, [place] [facility] PPSV23 (PNEUMOVAX) Branch Influenza High Dose Unknown Completed [facility] Influenza High Dose Unknown Completed [facility] of [facility] [place] [facility] SARS-COV-2 COVID-19 Unknown Completed [facility]ive rsity of PFIZER VACCINE [facility] SARS-COV-2 COVID-19 Unknown Completed [facility]ive rsity of PFIZER VACCINE [facility] Influenza Virus Unknown Completed [facility] Vaccine [facility] Pneumococcal 13 Unknown Completed [facility]it y of Conjugate, PCV13 [place] [facility] (Prevnar 13) Branch Influenza High Dose Unknown Completed [facility] of [facility] Influenza High Dose Unknown Completed [facility] of [facility] Pneumococcal Unknown Completed University o f Polysaccharide, [place] [facility] PPSV23 (PNEUMOVAX) Branch Influenza High Dose Unknown Completed [facility] of [facility] Influenza High Dose Unknown Completed [facility] of [facility] [place] [facility] SARS-COV-2 COVID-19 Unknown Completed [facility]ive rsity of PFIZER VACCINE [facility] SARS-COV-2 COVID-19 Unknown Completed [facility]ive rsity of PFIZER VACCINE [facility] Influenza Virus Unknown Completed [facility] Vaccine [facility] Pneumococcal 13 Unknown Completed [facility]it y of Conjugate, PCV13 [place] [facility] (Prevnar 13) Branch Influenza High Dose Unknown Completed [facility] of [facility] Influenza High Dose Unknown Completed [facility] Pneumococcal Unknown Completed University o f Polysaccharide, [place] [facility] PPSV23 (PNEUMOVAX) Branch Influenza High Dose Unknown Completed [facility] Influenza High Dose Unknown Completed [facility] of [facility] [place] [facility] SARS-COV-2 COVID-19 Unknown Completed [facility]ive rsity of PFIZER VACCINE [facility] SARS-COV-2 COVID-19 Unknown Completed [facility]ive rsity of PFIZER VACCINE [facility] Influenza Virus Unknown Completed [facility] Vaccine [facility] Pneumococcal 13 Unknown Completed [facility] y of Conjugate, PCV13 [place] [facility] (Prevnar 13) Branch Influenza High Dose Unknown Completed [facility] Influenza High Dose Unknown Completed [facility] Pneumococcal Unknown Completed University o f Polysaccharide, [place] [facility] PPSV23 (PNEUMOVAX) Branch Influenza High Dose Unknown Completed [facility] Influenza High Dose Unknown Completed [facility] of [facility] [place] [facility] SARS-COV-2 COVID-19 Unknown Completed [facility]ive rsity of PFIZER VACCINE [facility] SARS-COV-2 COVID-19 Unknown Completed [facility]ive [facility]ity of PFIZER VACCINE [facility] Influenza Virus Unknown Completed [facility] Vaccine [facility] Pneumococcal 13 Unknown Completed [facility] y of Conjugate, PCV13 [place] [facility] (Prevnar 13) Branch Influenza High Dose Unknown Completed [facility] Influenza High Dose Unknown Completed [facility] Pneumococcal Unknown Completed University o f Polysaccharide, [place] [facility] PPSV23 (PNEUMOVAX) Branch Influenza High Dose Unknown Completed [facility] of [facility] Influenza High Dose Unknown Completed [facility] of [facility] SARS-COV-2 COVID-19 Unknown Completed [facility]ive rsity of PFIZER VACCINE [facility] SARS-COV-2 COVID-19 Unknown Completed [facility]ive rsity of PFIZER VACCINE [facility] Influenza Virus Unknown Completed [facility] Vaccine [facility] Pneumococcal 13 Unknown Completed [facility]it y of Conjugate, PCV13 [place] [facility] (Prevnar 13) Branch Influenza High Dose Unknown Completed [facility] Influenza High Dose Unknown Completed [facility] Pneumococcal Unknown Completed [facility] o f Polysaccharide, [place] [facility] PPSV23 (PNEUMOVAX) Branch Influenza High Dose Unknown Completed [facility] Influenza High Dose Unknown Completed [facility] of [facility] [place] [facility] SARS-COV-2 COVID-19 Unknown Completed Unive rsity of PFIZER VACCINE [facility] SARS-COV-2 COVID-19 Unknown Completed [facility]ive rsity of PFIZER VACCINE [facility] Influenza Virus Unknown Completed [facility] Vaccine [facility] Pneumococcal 13 Unknown Completed [facility] y of Conjugate, PCV13 [place] [facility] (Prevnar 13) Branch Influenza High Dose Unknown Completed [facility] of [facility] Influenza High Dose Unknown Completed [facility] Pneumococcal Unknown Completed [facility] o f Polysaccharide, [place] [facility] PPSV23 (PNEUMOVAX) Branch Influenza High Dose Unknown Completed [facility] of [facility] Influenza High Dose Unknown Completed [facility] of [facility] [place] [facility] SARS-COV-2 COVID-19 Unknown Completed [facility]ive rsity of PFIZER VACCINE [facility] Influenza Virus Unknown Completed [facility] y of Vaccine [facility] Pneumococcal 13 Unknown Completed [facility]it y of Conjugate, PCV13 [place] [facility] (Prevnar 13) Branch Influenza High Dose Unknown Completed [facility] of [facility] Influenza High Dose Unknown Completed [facility] of [facility] Pneumococcal Unknown Completed University o f Polysaccharide, [place] [facility] PPSV23 (PNEUMOVAX) Branch Influenza High Dose Unknown Completed [facility] of [facility] Influenza High Dose Unknown Completed [facility] of [facility] Influenza Virus Unknown Completed [facility] y of Vaccine [facility] Pneumococcal 13 Unknown Completed [facility]it y of Conjugate, PCV13 [place] [facility] (Prevnar 13) Branch Influenza High Dose Unknown Completed [facility] of [facility] Influenza High Dose Unknown Completed [facility] of [facility] Pneumococcal Unknown Completed University o f Polysaccharide, [place] [facility] PPSV23 (PNEUMOVAX) Branch Influenza High Dose Unknown Completed [facility] of [facility] Influenza High Dose Unknown Completed [facility] of [facility] Influenza Virus Unknown Completed [facility]it y of Vaccine [facility] Pneumococcal 13 Unknown Completed Universit y of Conjugate, PCV13 [facility] dical (Prevnar 13) Branch Influenza High Dose Unknown Completed [facility] of [facility] Influenza High Dose Unknown Completed [facility] of [facility] Pneumococcal Unknown Completed University o f Polysaccharide, [place] [facility] PPSV23 (PNEUMOVAX) Branch Influenza High Dose Unknown Completed [facility] of [facility] Influenza High Dose Unknown Completed [facility] of [facility] Influenza Virus Unknown Completed [facility] y of Vaccine [facility] Pneumococcal 13 Unknown Completed Universit y of Conjugate, PCV13 [facility] dical (Prevnar 13) Branch Influenza High Dose Unknown Completed [facility] rsity of [facility] Influenza High Dose Unknown Completed [facility] of [facility] Pneumococcal Unknown Completed University o f Polysaccharide, [place] [facility] PPSV23 (PNEUMOVAX) Branch Influenza High Dose Unknown Completed [facility] of [facility] Influenza High Dose Unknown Completed [facility] of [facility] Influenza Virus Unknown Completed [facility] of Vaccine [facility] Pneumococcal 13 Unknown Completed [facility] y of Conjugate, PCV13 [place] [facility] (Prevnar 13) Branch Influenza High Dose Unknown Completed [facility] of [facility] Influenza High Dose Unknown Completed [facility] of [facility] Pneumococcal Unknown Completed [facility] o f Polysaccharide, [place] [facility] PPSV23 (PNEUMOVAX) Branch Influenza High Dose Unknown Completed [facility] Pneumococcal 13 Unknown Completed [facility] y of Conjugate, PCV13 [place] [facility] (Prevnar 13) Branch Influenza High Dose Unknown Completed [facility] [place] [facility] Influenza High Dose Unknown Completed [facility] Pneumococcal Unknown Completed [facility] o f Polysaccharide, [place] [facility] PPSV23 (PNEUMOVAX) Branch Influenza High Dose Unknown Completed [facility] of [facility] Influenza High Dose Unknown Completed [facility] of [facility] [place] [facility] SARS-COV-2 COVID-19 Unknown Completed [facility]ive rsity of PFIZER VACCINE [facility] SARS-COV-2 COVID-19 Unknown Completed [facility] rsity of PFIZER VACCINE [facility] Influenza Virus Unknown Completed [facility] Vaccine [facility] Influenza Virus Unknown Completed [facility] Vaccine,quad [place] [facility],preserve Free [facility] 65+ (FLUAD) Pneumococcal 13 Unknown Completed [facility] of Conjugate, PCV13 [place] [facility] (Prevnar 13) Branch Influenza High Dose Unknown Completed [facility] of [facility] Influenza High Dose Unknown Completed [facility] of [facility] Pneumococcal Unknown Completed University o f Polysaccharide, [place] [facility] PPSV23 (PNEUMOVAX) Branch Influenza High Dose Unknown Completed [facility] of [facility] Influenza High Dose Unknown Completed [facility]ity of [facility] [place] [facility] SARS-COV-2 COVID-19 Unknown Completed [facility]ive rsity of PFIZER VACCINE [facility] SARS-COV-2 COVID-19 Unknown Completed [facility]ive rsity of PFIZER VACCINE [facility] Influenza Virus Unknown Completed [facility] Vaccine [facility] Influenza Virus Unknown Completed [facility] Vaccine,quad [place] [facility] Free [facility] 65+ (FLUAD) Pneumococcal 13 Unknown Completed [facility] of Conjugate, PCV13 [place] [facility] (Prevnar 13) Branch Influenza High Dose Unknown Completed [facility] of [facility] Influenza High Dose Unknown Completed [facility] Pneumococcal Unknown Completed [facility] o f Polysaccharide, [place] [facility] PPSV23 (PNEUMOVAX) Branch Influenza High Dose Unknown Completed [facility] of [facility] Influenza High Dose Unknown Completed [facility] of [facility] [place] [facility] SARS-COV-2 COVID-19 Unknown Completed [facility]ive rsity of PFIZER VACCINE [facility] SARS-COV-2 COVID-19 Unknown Completed [facility] rs[facility] of PFIZER VACCINE [facility] Influenza Virus Unknown Completed [facility] Vaccine [place] [facility] Influenza Virus Unknown Completed [facility] Vaccine,quad [place] [facility],preserve Free [facility] 65+ (FLUAD) Pneumococcal 13 Unknown Completed [facility] of Conjugate, PCV13 [place] [facility] (Prevnar 13) Branch Influenza High Dose Unknown Completed [facility] Influenza High Dose Unknown Completed [facility] Pneumococcal Unknown Completed [facility] o f Polysaccharide, [place] [facility] PPSV23 (PNEUMOVAX) Branch Influenza High Dose Unknown Completed [facility] of [facility] Influenza High Dose Unknown Completed [facility] of [facility] SARS-COV-2 COVID-19 Unknown Completed [facility]ive rsity of PFIZER VACCINE [facility] SARS-COV-2 COVID-19 Unknown Completed [facility]ive rsity of PFIZER VACCINE [facility] Influenza Virus Unknown Completed [facility] of Vaccine [facility] Influenza Virus Unknown Completed [facility]it y of Vaccine,quad [place] [facility] 65+ (FLUAD) Pneumococcal 13 Unknown Completed [facility] of Conjugate, PCV13 [place] [facility] (Prevnar 13) Branch Influenza High Dose Unknown Completed [facility]ive [facility]ity of [facility] Influenza High Dose Unknown Completed [facility]ity of [facility] Pneumococcal Unknown Completed University o f Polysaccharide, [place] [facility] PPSV23 (PNEUMOVAX) Branch Influenza High Dose Unknown Completed [facility]ity of [facility] Influenza High Dose Unknown Completed Unive rsity of [facility] SARS-COV-2 COVID-19 Unknown Completed Unive rsity of PFIZER VACCINE [facility] SARS-COV-2 COVID-19 Unknown Completed Unive rsity of PFIZER VACCINE [facility] Influenza Virus Unknown Completed Universit y of Vaccine [facility] Influenza Virus Unknown Completed [facility] Vaccine,quad [place] [facility] 65+ (FLUAD) Pneumococcal 13 Unknown Completed [facility]it [facility] of Conjugate, PCV13 [place] [facility] (Prevnar 13) Branch Influenza High Dose Unknown Completed [facility]ity of [facility] Influenza High Dose Unknown Completed [facility] of [facility] Pneumococcal Unknown Completed University o f Polysaccharide, [place] [facility] PPSV23 (PNEUMOVAX) Branch Influenza High Dose Unknown Completed [facility] [place] [facility] Influenza High Dose Unknown Completed [facility]ive [facility]ity of [facility] Branch SARS-COV-2 COVID-19 Unknown Completed Unive [facility]ity of PFIZER VACCINE [facility] SARS-COV-2 COVID-19 Unknown Completed [facility]ive [facility] of PFIZER VACCINE [facility] Influenza Virus Unknown Completed [facility] Vaccine [facility] Influenza Virus Unknown Completed [facility] Vaccine,quad [place] [facility] 65+ (FLUAD) Pneumococcal 13 Unknown Completed [facility] of Conjugate, PCV13 [place] [facility] (Prevnar 13) Branch Influenza High Dose Unknown Completed [facility]ive [facility]ity of [facility] Branch Influenza High Dose Unknown Completed [facility] of [facility] Pneumococcal Unknown Completed University o f Polysaccharide, [place] [facility] PPSV23 (PNEUMOVAX) Branch Influenza High Dose Unknown Completed [facility]ity of [facility] Branch Influenza High Dose Unknown Completed [facility]ity of [facility] [place] [facility] SARS-COV-2 COVID-19 Unknown Completed Unive rsity of PFIZER VACCINE [facility] SARS-COV-2 COVID-19 Unknown Completed Unive rsity of PFIZER VACCINE [facility] Influenza Virus Unknown Completed [facility] Vaccine [facility] Influenza Virus Unknown Completed [facility] Vaccine,quad [place] [facility] 65+ (FLUAD) Pneumococcal 13 Unknown Completed [facility]it [facility] of Conjugate, PCV13 [place] [facility] (Prevnar 13) Branch Influenza High Dose Unknown Completed [facility] of [facility] Branch Influenza High Dose Unknown Completed [facility] of [facility] Pneumococcal Unknown Completed University o f Polysaccharide, [place] [facility] PPSV23 (PNEUMOVAX) Branch Influenza High Dose Unknown Completed [facility] of [facility] Branch Influenza High Dose Unknown Completed [facility] of [facility] [place] [facility] Branch SARS-COV-2 COVID-19 Unknown Completed Unive rsity of PFIZER VACCINE [facility] SARS-COV-2 COVID-19 Unknown Completed [facility]ive rsity of PFIZER VACCINE [facility] Influenza Virus Unknown Completed [facility]it [facility] of Vaccine [facility] Branch Influenza Virus Unknown Completed [facility] Vaccine,quad [place] [facility] 65+ (FLUAD) Pneumococcal 13 Unknown Completed [facility]it [facility] of Conjugate, PCV13 [place] [facility] (Prevnar 13) Branch Influenza High Dose Unknown Completed [facility] of [facility] Branch Influenza High Dose Unknown Completed [facility] of [facility] Pneumococcal Unknown Completed [facility] o f Polysaccharide, [place] [facility] PPSV23 (PNEUMOVAX) Branch Influenza High Dose Unknown Completed [facility] of [facility] Branch Influenza High Dose Unknown Completed [facility]ity of [facility] [place] [facility] SARS-COV-2 COVID-19 Unknown Completed Unive rsity of PFIZER VACCINE [facility] SARS-COV-2 COVID-19 Unknown Completed Unive rsity of PFIZER VACCINE [facility] Influenza Virus Unknown Completed [facility] Vaccine [facility] Influenza Virus Unknown Completed [facility] Vaccine,quad [place] [facility] 65+ (FLUAD) Pneumococcal 13 Unknown Completed [facility]it [facility] of Conjugate, PCV13 [place] [facility] (Prevnar 13) Branch Influenza High Dose Unknown Completed [facility] of [facility] Branch Influenza High Dose Unknown Completed [facility] of [facility] Pneumococcal Unknown Completed University o f Polysaccharide, [place] [facility] PPSV23 (PNEUMOVAX) Branch Influenza High Dose Unknown Completed [facility] of [facility] Branch Influenza High Dose Unknown Completed [facility]ive [facility]ity of [facility] [place] [facility] SARS-COV-2 COVID-19 Unknown Completed Unive rsity of PFIZER VACCINE [facility] SARS-COV-2 COVID-19 Unknown Completed Unive rsity of PFIZER VACCINE [facility] Influenza Virus Unknown Completed [facility]it [facility] of Vaccine [facility] Influenza Virus Unknown Completed [facility] Vaccine,quad [place] [facility] 65+ (FLUAD) Pneumococcal 13 Unknown Completed [facility]it [facility] of Conjugate, PCV13 [place] [facility] (Prevnar 13) Branch Influenza High Dose Unknown Completed [facility] of [facility] Branch Influenza High Dose Unknown Completed [facility] of [facility] Pneumococcal Unknown Completed University o f Polysaccharide, [place] [facility] PPSV23 (PNEUMOVAX) Branch Influenza High Dose Unknown Completed [facility] of [facility] Branch Influenza High Dose Unknown Completed [facility]ive [facility]ity of [facility] [place] [facility] SARS-COV-2 COVID-19 Unknown Completed Unive rsity of PFIZER VACCINE [facility] SARS-COV-2 COVID-19 Unknown Completed Unive rsity of PFIZER VACCINE [facility] Influenza Virus Unknown Completed [facility] of Vaccine [facility] Influenza Virus Unknown Completed [facility] Vaccine,quad [place] [facility] 65+ (FLUAD) Pneumococcal 13 Unknown Completed [facility]it [facility] of Conjugate, PCV13 [place] [facility] (Prevnar 13) Branch Influenza High Dose Unknown Completed [facility] Influenza High Dose Unknown Completed [facility] Pneumococcal Unknown Completed University o f Polysaccharide, [place] [facility] PPSV23 (PNEUMOVAX) Branch Influenza High Dose Unknown Completed [facility] [place] [facility] Influenza High Dose Unknown Completed [facility]ity of [facility] [place] [facility] SARS-COV-2 COVID-19 Unknown Completed Unive rsity of PFIZER VACCINE [facility] SARS-COV-2 COVID-19 Unknown Completed Unive rsity of PFIZER VACCINE [facility] Influenza Virus Unknown Completed [facility] Vaccine [facility] Influenza Virus Unknown Completed [facility] Vaccine,quad [place] [facility] 65+ (FLUAD) Pneumococcal 13 Unknown Completed [facility]it [facility] of Conjugate, PCV13 [place] [facility] (Prevnar 13) Branch Influenza High Dose Unknown Completed [facility] of [facility] Branch Influenza High Dose Unknown Completed [facility] of [facility] Pneumococcal Unknown Completed University o f Polysaccharide, [place] [facility] PPSV23 (PNEUMOVAX) Branch Influenza High Dose Unknown Completed [facility] of [facility] Branch Influenza High Dose Unknown Completed [facility]ity of [facility] [place] [facility] SARS-COV-2 COVID-19 Unknown Completed Unive rsity of PFIZER VACCINE [facility] SARS-COV-2 COVID-19 Unknown Completed Unive rsity of PFIZER VACCINE [facility] Influenza Virus Unknown Completed [facility]it [facility] of Vaccine [facility] Influenza Virus Unknown Completed [facility] Vaccine,quad [place] [facility] 65+ (FLUAD) Pneumococcal 13 Unknown Completed [facility]it y of Conjugate, PCV13 [place] [facility] (Prevnar 13) Branch Influenza High Dose Unknown Completed [facility] of [facility] Branch Influenza High Dose Unknown Completed [facility] of [facility] Pneumococcal Unknown Completed University o f Polysaccharide, [place] [facility] PPSV23 (PNEUMOVAX) Branch Influenza High Dose Unknown Completed [facility] of [facility] Branch Influenza High Dose Unknown Completed [facility]ity of [facility] [place] [facility] SARS-COV-2 COVID-19 Unknown Completed Unive rsity of PFIZER VACCINE [facility] SARS-COV-2 COVID-19 Unknown Completed Unive rsity of PFIZER VACCINE [facility] Influenza Virus Unknown Completed [facility] y of Vaccine [facility] Influenza Virus Unknown Completed [facility] Vaccine,quad [place] [facility] 65+ (FLUAD) Pneumococcal 13 Unknown Completed Universit y of Conjugate, PCV13 [facility] dical (Prevnar 13) Branch Influenza High Dose Unknown Completed [facility]ity of [facility] Influenza High Dose Unknown Completed [facility] of [facility] Pneumococcal Unknown Completed [place] o f Polysaccharide, [facility] ica PPSV23 (PNEUMOVAX) Branch Influenza High Dose Unknown Completed [facility]ive rsity of [facility] Influenza High Dose Unknown Completed [facility]ity of [place] [facility] SARS-COV-2 COVID-19 Unknown Completed Unive rsity of PFIZER VACCINE [facility] Branch SARS-COV-2 COVID-19 Unknown Completed Unive rsity of PFIZER VACCINE [facility] Influenza Virus Unknown Completed Universit y of Vaccine [facility] Influenza Virus Unknown Completed [facility]it y of Vaccine,quad [place] [facility] 65+ (FLUAD) influenza virus Unknown Completed [facility] vaccine, inactivated Hx influenza Unknown Completed [facility] vaccine-unspecified <sup>1</sup> Hx influenza Unknown Completed [facility] vaccine-unspecified <sup>2</sup> influenza virus Unknown Completed [facility] vaccine, inactivated<sup>2</ sup> influenza virus Unknown Completed [facility] vaccine, inactivated<sup>1</ sup> pneumococcal Unknown Completed [facility] 23-valent vaccine<sup>3</sup> Vital Signs Vital Name Observation Time Observation Value Comments Source Systolic blood 2022-12-26 148 mm[Hg] manual; taken [facility] pressure 18:00:00 twice; [facility] asymptomatic Branch Diastolic blood 2022-12-26 64 mm[Hg] manual; taken [facility] pressure 18:00:00 twice; [facility] asymptomatic [place] [facility] rate 2022-12-26 76 /min [facility] 18:00:00 [facility] Respiratory rate 2022-12-26 22 /min [facility] 18:00:00 [facility] Body weight 2022-12-[address] [facility] 18:00:00 [facility] BMI 2022-12-26 25.85 kg/m2 [facility] 18:00:00 [facility] Oxygen saturation 2022-12-26 93 /min walked into [facility] in Arterial blood 18:00:00 building RA, SpO2 [facility] by Pulse oximetry 89%, put 2l/m Branch pulsed [place] on with SpO2>90% within 1-2 mins; exercised on 1 l/m con't [place] Systolic blood 2022-12-25 136 mm[Hg] manual University of pressure 18:00:00 [facility] Branch Diastolic blood 2022-12-25 56 mm[Hg] manual University o f pressure 18:00:00 [facility] Heart rate 2022-12-25 71 /min University of 18:00:00 [facility] Respiratory rate 2022-12-25 22 /min University of 18:00:00 [facility] Body weight 2022-12-25 86.183 kg University of 18:00:00 [facility] BMI 2022-12-25 25.77 kg/m2 University of 18:00:00 [facility] Oxygen saturation 2022-12-25 94 /min arrived on RA; Universi ty of in Arterial blood 18:00:00 [place] 1 l/m [place] [facility] [place] Branch Systolic blood 2022-12-20 110 mm[Hg] manual University of pressure 18:15: [facility] Diastolic blood 2022-12-20 46 mm[Hg] manual University o f pressure 18:15:00 [facility] Heart rate 2022-12-20 81 /min University of 18:15:00 [facility] Respiratory rate 2022-12-20 22 /min University of 18:15:00 [facility] Body weight 2022-12-20 81.647 kg University of 18:15:00 [facility] BMI 2022-12-20 24.41 kg/m2 University of 18:15:00 [facility] Oxygen saturation 2022-12-20 98 /min arrived on pulsed Unive rsity of in Arterial blood 18:15:00 2 l/m NC; [place] [facility] by Pulse oximetry exercised on 2 l/m Bran ch con't [place] Systolic blood 2022-11-28 134 mm[Hg] manual; slightly Universit y of pressure 18:00:00 higher, checked [place] [facility] x2; slight H/A Branch reported Diastolic blood 2022-11-28 76 mm[Hg] manual; slightly Universi ty of pressure 18:00:00 higher, checked [place] [facility] x2; slight H/A Branch reported Heart rate 2022-11-28 78 /min University of 18:00:00 [facility] Respiratory rate 2022-11-28 22 /min University of 18:00:00 [facility] Body weight 2022-11-28 79.47 kg University of 18:00:00 [facility] BMI 2022-11-28 23.76 kg/m2 University of 18:00:00 [facility] Oxygen saturation 2022-11-28 95 /min arrived on pulsed Unive rsity of in Arterial blood 18:00:00 2 l/m NC; [place] [facility] by Pulse oximetry exercised on con't Bran ch 2 l/m [place] Systolic blood 2022-11-26 147 mm[Hg] University of pressure 19:00:00 [facility] Diastolic blood 2022-11-26 86 mm[Hg] University o f pressure 19:00:00 [facility] Heart rate 2022-11-26 77 /min University of 19:00:00 [facility] Body temperature 2022-11-26 36.89 Erna University of 19:00:00 [facility] Respiratory rate 2022-11-26 18 /min University of 19:00:00 [facility] Body height 2022-11-26 182.9 cm University of 19:00:00 [facility] Body weight 2022-11-26 78.472 kg University of 19:00:00 [facility] BMI 2022-11-26 23.46 kg/m2 University of 19:00:00 [facility] Oxygen saturation 2022-11-26 100 /min University of in Arterial blood 19:00:00 [place] [facility] Pulse oximetry Branch Systolic blood 2022-11-19 120 mm[Hg] manual University of pressure 18:00:00 [facility] Diastolic blood 2022-11-19 60 mm[Hg] manual University o f pressure 18:00:00 [facility] Heart rate 2022-11-19 82 /min University of 18:00:00 [facility] Respiratory rate 2022-11-19 22 /min University of 18:00:00 [facility] Body weight 2022-11-19 81.103 kg University of 18:00:00 [facility] BMI 2022-11-19 24.25 kg/m2 University of 18:00:00 [facility] Oxygen saturation 2022-11-19 96 /min arrived on 2 l/m Univer sity of in Arterial blood 18:00:00 [place] con't; [place] [facility] by Pulse oximetry exercised on 2 l/m Bran ch [place] con't Systolic blood 2022-11-14 122 mm[Hg] manual University of pressure 18:00:00 [facility] Diastolic blood 2022-11-14 58 mm[Hg] manual University o f pressure 18:00:00 [facility] Heart rate 2022-11-14 78 /min University of 18:00:00 [facility] Respiratory rate 2022-11-14 22 /min University of 18:00:00 [facility] Body weight 2022-11-14 79.017 kg University of 18:00:00 [facility] BMI 2022-11-14 23.63 kg/m2 University of 18:00:00 [facility] Branch Oxygen saturation 2022-11-14 98 /min arrived on 2 l/m Univer sity of in Arterial blood 18:00:00 con't NC; [place] [facility] by Pulse oximetry exercised on RA & Branc h 2 l/m con't [place] Systolic blood 2022-11-12 126 mm[Hg] manual University of pressure 18:00:00 [facility] Diastolic blood 2022-11-12 66 mm[Hg] manual University o f pressure 18:00:00 [facility] Heart rate 2022-11-12 74 /min University of 18:00:00 [facility] Respiratory rate 2022-11-12 20 /min University of 18:00:00 [facility] Body weight 2022-11-12 81.557 kg University of 18:00:00 [facility] BMI 2022-11-12 24.39 kg/m2 University of 18:00:00 [facility] Branch Oxygen saturation 2022-11-12 95 /min arrived on 2 l/m Univer sity of in Arterial blood 18:00:00 NC; exercised [place] [facility] by Pulse oximetry mainly on RA Branch Systolic blood 2022-11-09 122 mm[Hg] manual; right arm Universi ty of pressure 18:30:00 [id number] manual [facility] Diastolic blood 2022-11-09 64 mm[Hg] manual; right arm Univers ity of pressure 18:30:00 [id number] manual [place] [facility] Heart rate 2022-11-09 70 /min University of 18:30:00 [facility] Respiratory rate 2022-11-09 22 /min University of 18:30:00 [facility] Body weight 2022-11-09 82.101 kg University of 18:30:00 [facility] BMI 2022-11-09 24.55 kg/m2 University of 18:30:00 [facility] Oxygen saturation 2022-11-09 99 /min arrived on 2 l/m Univer sity of in Arterial blood 18:30:00 con't NC; [place] [facility] by Pulse oximetry exercised on Branch Systolic blood 2022-11-09 131 mm[Hg] University of pressure 15:22:00 [facility] Diastolic blood 2022-11-09 77 mm[Hg] University o f pressure 15:22:00 [facility] Heart rate 2022-11-09 86 /min University of 15:22:00 [facility] Respiratory rate 2022-11-09 18 /min University of 15:22:00 [facility] Body height 2022-11-09 182.9 cm University of 15:22:00 [facility] Body weight 2022-11-09 81.557 kg University of 15:22:00 [facility] BMI 2022-11-09 24.39 kg/m2 University of 15:22:00 [facility] Oxygen saturation 2022-11-09 97 /min University of in Arterial blood 15:22:00 [place] [facility] by Pulse oximetry Branch Systolic blood 2022-10-23 137 mm[Hg] University of pressure 20:32:00 [facility] Diastolic blood 2022-10-23 73 mm[Hg] University o f pressure 20:32:00 [facility] Heart rate 2022-10-23 60 /min University of 20:32:00 [facility] Body temperature 2022-10-23 37.22 Erna University of 20:32:00 [facility] Respiratory rate 2022-10-23 17 /min University of 20:32:00 [facility] Oxygen saturation 2022-10-23 98 /min University of in Arterial blood 20:32:00 [place] [facility] by Pulse oximetry Branch Body height 2022-10-19 182.9 cm University of 09:00:00 [facility] Body weight 2022-10-19 82.555 kg University of 09:00:00 [facility] BMI 2022-10-19 24.68 kg/m2 University of 09:00:00 [facility] Systolic blood 2022-10-09 136 mm[Hg] University of pressure 20:35:00 [facility] Branch Diastolic blood 2022-10-09 76 mm[Hg] University o f pressure 20:35:00 [facility] Branch Heart rate 2022-10-09 68 /min University of 20:35:00 [facility] Branch Body temperature 2022-10-09 36.67 Erna University of 20:35:00 [facility] Branch Respiratory rate 2022-10-09 19 /min University of 20:35:00 [facility] Branch Oxygen saturation 2022-10-09 99 /min University of in Arterial blood 20:35:00 [place] [facility] by Pulse oximetry Branch Body weight 2022-10-09 82.827 kg University of 09:00:00 [facility] BMI 2022-10-09 24.77 kg/m2 University of 09:00:00 [facility] Body height 2022-10-05 182.9 cm University of 23:31:00 [facility] Systolic blood 2022-10-01 143 mm[Hg] University of pressure 15:44:00 [facility] Diastolic blood 2022-10-01 67 mm[Hg] University o f pressure 15:44:00 [facility] Heart rate 2022-10-01 52 /min University of 15:43:00 [facility] Body temperature 2022-10-01 36.5 Erna University of 15:43:00 [facility] Respiratory rate 2022-10-01 18 /min University of 15:43:00 [facility] Body height 2022-10-01 182.9 cm University of 15:43:00 [facility] Body weight 2022-10-01 87.317 kg University of 15:43:00 [facility] BMI 2022-10-01 26.11 kg/m2 University of 15:43:00 [facility] Branch Oxygen saturation 2022-10-01 96 /min University of in Arterial blood 15:43:00 [place] [facility] by Pulse oximetry Branch Heart rate 2022-09-18 70 /min University of 23:00:00 [facility] Respiratory rate 2022-09-18 13 /min University of 23:00:00 [facility] Oxygen saturation 2022-09-18 96 /min University of in Arterial blood 23:00:00 [place] [facility] Pulse oximetry Branch Systolic blood 2022-09-18 141 mm[Hg] University of pressure 22:01:00 [facility] Diastolic blood 2022-09-18 80 mm[Hg] University o f pressure 22:01:00 [facility] Body temperature 2022-09-18 36.72 Erna University of 20:09:00 [facility] Body weight 2022-09-18 85.957 kg University of 09:00:00 [facility] BMI 2022-09-18 25.70 kg/m2 University of 09:00:00 [facility] Body height 2022-09-17 182.9 cm University of 19:54:00 [facility] Systolic blood 2022-04-16 135 mm[Hg] University of pressure 16:11:00 [facility] Diastolic blood 2022-04-16 70 mm[Hg] University o f pressure 16:11:00 [facility] Heart rate 2022-04-16 53 /min University of 16:11:00 [facility] Body temperature 2022-04-16 36.17 Erna University of 16:11:00 [facility] Body height 2022-04-16 182.9 cm University of 16:11:00 [facility] Body weight 2022-04-16 88.179 kg University of 16:11:00 [facility] BMI 2022-04-16 26.37 kg/m2 University of 16:11:00 [facility] Oxygen saturation 2022-04-16 96 /min [facility] in Arterial blood 16:11:00 [facility] Pulse oximetry [place] Systolic blood 2022-04-12 137 mm[Hg] University of pressure 19:48:00 [facility] Diastolic blood 2022-04-12 78 mm[Hg] University o f pressure 19:48:00 [facility] Heart rate 2022-04-12 72 /min University of 19:48:00 [facility] Body temperature 2022-04-12 36 Erna University of 19:48:00 [facility] Respiratory rate 2022-04-12 18 /min University of 19:48:00 [facility] Body height 2022-04-12 182.9 cm University of 19:48:00 [facility] Body weight 2022-04-12 90.13 kg University of 19:48:00 [facility] BMI 2022-04-12 26.95 kg/m2 University of 19:48:00 [facility] Oxygen saturation 2022-04-12 95 /min University of in Arterial blood 19:48:00 [place] [facility] Pulse oximetry Branch Systolic blood 2022-03-08 182 mm[Hg] University of pressure 22:07:00 [facility] Diastolic blood 2022-03-08 78 mm[Hg] University o f pressure 22:07:00 [facility] Heart rate 2022-03-08 67 /min University of 22:05:00 [facility] Body temperature 2022-03-08 36.28 Erna University of 20:08:00 [facility] Respiratory rate 2022-03-08 18 /min University of 20:08:00 [facility] Body height 2022-03-08 182.9 cm University of 20:08:00 [facility] Body weight 2022-03-08 86.818 kg University of 20:08:00 [facility] BMI 2022-03-08 25.96 kg/m2 University of 20:08:00 [facility] Oxygen saturation 2022-03-08 97 /min University of in Arterial blood 20:08:00 [place] [facility] Pulse oximetry Branch Systolic blood 2022-01-08 188 mm[Hg] University of pressure 16:01:00 [facility] Diastolic blood 2022-01-08 66 mm[Hg] University o f pressure 16:01:00 [facility] Heart rate 2022-01-08 54 /min University of 16:01:00 [facility] Respiratory rate 2022-01-08 19 /min University of 16:01:00 [facility] Body height 2022-01-08 182.9 cm University of 16:01:00 [facility] Body weight 2022-01-08 89.858 kg University of 16:01:00 [facility] BMI 2022-01-08 26.87 kg/m2 University of 16:01:00 [facility] Oxygen saturation 2022-01-08 96 /min University of in Arterial blood 16:01:00 [place] [facility] Pulse oximetry Branch Systolic blood 2021-12-06 118 mm[Hg] University of pressure 18:30:00 [facility] Diastolic blood 2021-12-06 76 mm[Hg] University o f pressure 18:30:00 [facility] Heart rate 2021-12-06 66 /min University of 18:26:00 [facility] Body temperature 2021-12-06 36.33 Erna University of 18:26:00 [facility] Respiratory rate 2021-12-06 18 /min University of 18:26:00 [facility] Body height 2021-12-06 182.9 cm University of 18::00 [facility] Body weight 2021-12-06 88.179 kg University of 18:26:00 [facility] BMI 2021-12-06 26.37 kg/m2 University of 18::00 [facility] Oxygen saturation 2021-12-06 96 /min University of in Arterial blood 18:26:00 [facility] by Pulse oximetry Branch Systolic blood 2021-12-05 138 mm[Hg] manual University of pressure 15:00:00 [facility] Diastolic blood 2021-12-05 68 mm[Hg] manual University o f pressure 15:00:00 [facility] Heart rate 2021-12-05 58 /min University of 15:00:00 [facility] Respiratory rate 2021-12-05 22 /min University of 15:00:00 [facility] Body weight 2021-12-05 88.633 kg University of 15:00:00 [facility] BMI 2021-12-05 26.50 kg/m2 University of 15:00:00 [facility] Oxygen saturation 2021-12-05 97 /min arrived on 2l/m Univers ity of in Arterial blood 15:00:00 [place], took off; 6MW [facility] by Pulse oximetry done RA Branch Systolic blood 2021-11-30 120 mm[Hg] manual University of pressure 14:00:00 [facility] Diastolic blood 2021-11-30 66 mm[Hg] manual University o f pressure 14:00:00 [facility] Heart rate 2021-11-30 68 /min University of 14:00:00 [facility] Respiratory rate 2021-11-30 22 /min University of 14:00:00 [facility] Body weight 2021-11-30 90.311 kg University of 14:00:00 [facility] BMI 2021-11-30 27.00 kg/m2 University of 14:00:00 [facility] Oxygen saturation 2021-11-30 94 /min arrived on RA; Universi ty of in Arterial blood 14:00:00 exercised on RA [place] [facility] by Pulse oximetry Branch Systolic blood 2021-11-28 118 mm[Hg] manual University of pressure 15:00:00 [facility] Diastolic blood 2021-11-28 60 mm[Hg] manual University o f pressure 15:00:00 [facility] Heart rate 2021-11-28 63 /min University of 15:00:00 [facility] Respiratory rate 2021-11-28 22 /min University of 15:00:00 [facility] Body weight 2021-11-28 90.084 kg University of 15:00:00 [facility] BMI 2021-11-28 26.94 kg/m2 University of 15:00:00 [facility] Oxygen saturation 2021-11-28 97 /min RA University of in Arterial blood 15:00:00 [place] [facility] Pulse oximetry Branch Systolic blood 2021-11-24 130 mm[Hg] manual University of pressure 16:00:00 [facility] Diastolic blood 2021-11-24 58 mm[Hg] manual University o f pressure 16:00:00 [facility] Heart rate 2021-11-24 55 /min University of 16:00:00 [facility] Respiratory rate 2021-11-24 20 /min University of 16:00:00 [facility] Body weight 2021-11-24 92.897 kg University of 16:00:00 [facility] BMI 2021-11-24 27.78 kg/m2 University of 16:00:00 [facility] Oxygen saturation 2021-11-24 95 /min RA University of in Arterial blood 16:00:00 [facility] by Pulse oximetry Branch Systolic blood 2021-11-21 122 mm[Hg] manual University of pressure 15:00:00 [facility] Diastolic blood 2021-11-21 54 mm[Hg] manual University o f pressure 15:00:00 [facility] Heart rate 2021-11-21 52 /min University of 15:00:00 [facility] Respiratory rate 2021-11-21 20 /min University of 15:00:00 [facility] Body weight 2021-11-21 92.897 kg University of 15:00:00 [facility] BMI 2021-11-21 27.78 kg/m2 University of 15:00:00 [facility] Oxygen saturation 2021-11-21 94 /min due to walk into [facility] of in Arterial blood 15:00:00 [place], wore 2 l/m [place] [facility] by Pulse oximetry pulsed [place]; Branch exercised on RA Systolic blood 2021-11-16 120 mm[Hg] manual; frequent Universit y of pressure 15:00:00 missed beats; [place] [facility] asymptomatic [facility] Diastolic blood 2021-11-16 58 mm[Hg] manual; frequent Universi ty of pressure 15:00:00 missed beats; [facility] asymptomatic Branch Heart rate 2021-11-16 58 /min [facility] 15:00:00 [facility] Respiratory rate 2021-11-16 20 /min [facility] 15:00:00 [facility] Body weight 2021-11-[address] [facility] 15:00:00 [facility] BMI 2021-11-16 28.07 kg/m2 [facility] 15:00:00 [facility] Oxygen saturation 2021-11-16 89 /min arrived on 2l/m Univers ity of in Arterial blood 15:00:00 pulsed [place]; con't [facility] by Pulse oximetry want to exercise Branch on RA; encouraged PLB Temperature Oral 2019-01-17 97.9 F [facility] rmann (F) 01:21:00 Systolic (mm Hg) 2019-01-17 [facility] rmann 01:21:00 Diastolic (mm Hg) 2019-01-[address] [facility] ermann 01:21:00 Height 2019-01-17 182.88 cm [facility] Elliott n 01:18:00 [facility] BMI Calculated 2019-01-17 [facility] Herm aby 01:18:00 Respitory [facility] 2019-[facility]-17 [facility] 01:14:00 Respitory Rate 2019-01-17 [facility] 00:10:00 Respitory Rate 2019-01-17 [facility] Herm aby 00:05:00 Systolic (mm Hg) 2019-01-17 [facility] rmann 00:05:00 Diastolic (mm Hg) 2019-01-[address] [facility] ermann 00:05:00 Temperature Oral 2019-01-17 98 F [facility] rmann (F) 00:05:00 Systolic (mm Hg) 2019-01-16 [facility] rmann 21:00:00 Diastolic (mm Hg) 2019-01-[address] [facility] ermann 21:00:00 Heart Rate 2019-01-16 [facility] Elliott n 20:16:00 Temperature Oral 2019-01-16 98.0 F [facility] rmann (F) 20:16:00 Height 2019-01-16 182.88 cm Ivana Hannahan n 20:16:00 BMI Calculated 2019-01-16 [facility] 16:00:00 Systolic (mm Hg) 2015-09-21 [facility] rmann 15:45:00 Diastolic (mm Hg) 2015-09-21 [facility] ermann 15:45:00 Respitory Rate 2015-09-21 [facility] 15:45:00 Heart Rate 2015-09-19 Ivana Hannahan n 18:16:00 Temperature Oral 2015-09-19 98.1 F [facility] Denny rmann (F) 18:16:00 Weight 2015-09-19 [facility] Elliott n 18:16:00 Height 2015-09-19 182.88 cm Ivana Gallagher n 18:16:00 BMI Calculated 2015-09-19 [facility] 18:16:00 Weight 2015-07-20 [facility] n 13:06:00 BMI Calculated 2015-07-20 [facility] 13:06:00 Height 2015-07-20 185.42 cm Ivana Hannahan n 13:06:00 Procedures Procedure Date / Time Performing Clinician Source Performed PULMONARY REHAB SESSION 2022-12-20 05:00:00 Doctor Unassigned, [facility] REPORT [place] [facility] CONSENT/REFUSAL FOR 2022-11-26 18:42:02 Doctor Unassigned, [facility] DIAGNOSIS AND TREATMENT [facility] [facility] PULMONARY REHAB SESSION 2022-11-12 05:00:00 Doctor Unassigned, [facility] REPORT [facility] [facility] POCT GLUCOSE (AUTOMATED) 2022-10-23 21:58:00 Gabriel Leblanc U [facility] POCT GLUCOSE (AUTOMATED) 2022-10-23 17:18:00 Dennys Leblanci U [facility] CBC WITH DIFF 2022-10-23 15:41:00 Donna [facility] POCT GLUCOSE (AUTOMATED) 2022-10-23 12:58:00 TerminDennys caglei U [facility] PHOSPHORUS 2022-10-23 10:52:00 [facility] 2022-10-23 10:52:00 Donna [facility] TROPONIN I 2022-10-23 10:52:00 Donna [facility] BASIC METABOLIC PANEL (NA, 2022-10-23 10:52:00 Jaime Thompson [facility] K, CL, CO2, GLUCOSE, BUN, Medica l Branch CREATININE, CA) POCT GLUCOSE (AUTOMATED) 2022-10-23 02:25:00 TerminRena cagleigi [facility] POCT GLUCOSE (AUTOMATED) 2022-10-22 21:44:00 Terminella, Gabriel U [facility] POCT GLUCOSE (AUTOMATED) 2022-10-22 17:19:00 Terminella, Gabriel U [facility] POCT GLUCOSE (AUTOMATED) 2022-10-22 13:56:00 Rena Leblancigi U [facility] PHOSPHORUS 2022-10-22 10:50:00 Donna [facility] MAGNESIUM 2022-10-22 10:50:00 Donna [facility] TROPONIN I 2022-10-22 10:50:00 Jaime Thompson [facility] THYROID STIMULATING 2022-10-22 10:50:00 Jaime Thompson [facility] HORMONE [facility] BASIC METABOLIC PANEL (NA, 2022-10-22 10:50:00 Jaime Thompson [facility] K, CL, CO2, GLUCOSE, BUN, Medica l Branch CREATININE, CA) LIPID PANEL ([id number])(TOTAL 2022-10-22 10:50:00 [facility] Branch TRIGLYCERIDES, HDL) CBC WITH DIFF 2022-10-22 10:50:00 Jaime Thompson [place] o f [facility] N-TERMINAL PRO-BNP 2022-10-22 10:50:00 Jaime Thompson [facility] POCT GLUCOSE (AUTOMATED) 2022-10-22 01:30:00 Terminella, Gabriel U [facility] POCT GLUCOSE (AUTOMATED) 2022-10-21 22:12:00 Terminella, Gabriel U [facility] POCT GLUCOSE (AUTOMATED) 2022-10-21 17:57:00 Terminella, Gabriel [facility] TRANSTHORACIC ECHO (TTE) 2022-10-21 16:48:34 Jaime Thompson [facility] POCT GLUCOSE (AUTOMATED) 2022-10-21 10:56:00 Terminella, Gabriel U [facility] POCT GLUCOSE (AUTOMATED) 2022-10-21 10:35:00 Terminella, Gabriel U [facility] PHOSPHORUS 2022-10-21 07:52:00 Termingurjit, [facility] MAGNESIUM 2022-10-21 07:52:00 [facility] BASIC METABOLIC PANEL (NA, 2022-10-21 07:52:00 [facility], CL, CO2, GLUCOSE, BUN, Medica l Branch CREATININE, CA) CBC WITH DIFF 2022-10-21 07:52:[facility] POCT GLUCOSE (AUTOMATED) 2022-10-21 04:32:00 Terminella, Gabriel U [facility] POCT GLUCOSE (AUTOMATED) 2022-10-20 22:14:00 Terminella, Gabriel [facility] LACTIC ACID WHOLE BLOOD 2022-10-20 21:40:00 TerminGabriel cagle [facility] AC ABG + LACTIC ACID 2022-10-20 18:22:00 TerminGabriel cagle [facility] POCT GLUCOSE (AUTOMATED) 2022-10-20 16:59:00 Gabriel Leblanc [facility] POCT GLUCOSE (AUTOMATED) 2022-10-20 11:10:00 Gabriel Leblanc [facility] AC PANEL 20 + LACTIC ACID 2022-10-20 09:40:00 Fantasma Reaves [facility] MAGNESIUM 2022-10-20 08:27:00 Jelly [facility] BASIC METABOLIC PANEL (NA, 2022-10-20 08:27:00 Fantasma Reaves [facility] K, CL, CO2, GLUCOSE, BUN, Medica l Branch CREATININE, CA) CBC WITH DIFF 2022-10-20 08:27:00 Jelly [facility] POCT GLUCOSE (AUTOMATED) 2022-10-20 04:54:00 Gabriel Leblanc [facility] POCT GLUCOSE (AUTOMATED) 2022-10-19 23:08:00 Gabriel Leblanc [facility] TROPONIN I 2022-10-19 21:17:[address] [facility] CT THORAX WO CONTRAST 2022-10-19 19:10:35 Gabriel Leblanc [facility] POCT GLUCOSE (AUTOMATED) 2022-10-19 18:02:00 Gabriel Leblanc [facility] AC PANEL 20 + LACTIC ACID 2022-10-19 16:11:00 Deana [facility] PROTHROMBIN TIME / INR 2022-10-19 15:47:00 Gabriel Leblanc [facility] PHOSPHORUS 2022-10-19 15:16:00 Deana [facility] MAGNESIUM 2022-10-19 15:16:00 Deana [facility] TROPONIN I 2022-10-19 15:16:00 [facility] MRSA / MSSA SCREEN BY PCR, 2022-10-19 15:16:00 [facility] POCT GLUCOSE (AUTOMATED) 2022-10-19 14:32:00 Doctor Unassigned, [facility] [facility] XR CHEST 1 2022-10-19 13:04:33 Elsy Slater [facility] XR CHEST 1 2022-10-19 12:06:54 Anna Marie Bethea [facility] AL INTUBATION ENDOTRACHEAL 2022-10-19 11:53:39 Anna Marie Bethea [facility] EMERGENCY PROCEDURE Medical Bran ch ACUTE CARE ARTERIAL BLOOD 2022-10-19 11:02:00 Anna Marie Bethea [facility] GAS [facility] XR CHEST 1 2022-10-19 09:32:49 Anna Marie Bethea [facility] AC PANEL 20 + LACTIC ACID 2022-10-19 09:24:00 Anna Marie Bethea [facility] COVID-19 (ID NOW RAPID 2022-10-19 09:13:00 Anna Marie Bethea [facility] TESTING) Medical Branch LAB ONLY COVID 2022-10-19 09:13:00 Anna Marie Bethea [facility] INTERPRETATION [facility] BLOOD CULTURE SCREEN 2022-10-19 09:08:00 Anna Marie [facility]hea [facility] 2022-10-19 09:08:00 Anna Marie Bethea [facility] TROPONIN I 2022-10-19 09:08:00 Anna Marie Bethea [facility] COMP. METABOLIC PANEL 2022-10-19 09:08:00 Anna Marie Bethea [facility] ([id number]) [facility] CBC WITH DIFF 2022-10-19 09:08:00 Anna Marie Bethea [facility] N-TERMINAL PRO-BNP 2022-10-19 09:08:00 Anna Marie Bethea [facility] HB ECG ROUTINE & RHYTHM 2022-10-19 08:56:23 Anna Marie Bethea [facility] CRITICAL CARE 2022-10-19 08:47:00 Anna Marie Bethea [facility] POCT GLUCOSE (AUTOMATED) 2022-10-09 22:29:00 Fredo Trinidad [facility] POCT GLUCOSE (AUTOMATED) 2022-10-09 21:48:00 Fredo Trinidad [facility] POCT GLUCOSE (AUTOMATED) 2022-10-09 16:38:00 Fredo Trinidad [facility] POCT GLUCOSE (AUTOMATED) 2022-10-09 13:08:00 Fredo Trinidad [facility] MAGNESIUM 2022-10-09 10:17:00 Andres [facility] BASIC METABOLIC PANEL (NA, 2022-10-09 10:17:00 [facility], CL, CO2, GLUCOSE, BUN, Medica l Branch CREATININE, CA) N-TERMINAL PRO-BNP 2022-10-09 10:17:00 Andres [facility] POCT GLUCOSE (AUTOMATED) 2022-10-09 02:03:00 Fredo Trinidad [facility] POCT GLUCOSE (AUTOMATED) 2022-10-08 21:54:00 Fredo Trinidad [facility] POCT GLUCOSE (AUTOMATED) 2022-10-08 20:03:00 Fredo Trinidad [facility] MAGNESIUM 2022-10-08 10:02:00 Fredo Trinidad [facility] BASIC METABOLIC PANEL (NA, 2022-10-08 10:02:00 Fredo Trinidad [facility] K, CL, CO2, GLUCOSE, BUN, Medica l Branch CREATININE, CA) CBC WITH DIFF 2022-10-08 10:02:00 Fredo Trinidad [facility] GLYCOSYLATED HEMOGLOBIN 2022-10-08 10:02:00 Andres [facility] (A1C) [facility] N-TERMINAL PRO-BNP 2022-10-08 10:02:00 Dariana Giron [facility] MAGNESIUM 2022-10-07 09:45:00 Fredo Trinidad [facility] BASIC METABOLIC PANEL (NA, 2022-10-07 09:45:00 Fredo Trinidad [facility] K, CL, CO2, GLUCOSE, BUN, Medica l Branch CREATININE, CA) VITAMIN B12, LEVEL 2022-10-06 10:13:00 Fredo Trinidad [facility] FOLATE 2022-10-06 10:13:00 Fredo Trinidad [facility] COMP. METABOLIC PANEL 2022-10-06 10:13:00 Faina Badillo [facility] ([id number]) [facility] CBC WITH DIFF 2022-10-06 10:13:00 Faina Badillo [facility] N-TERMINAL PRO-BNP 2022-10-06 10:13:00 Faina Badillo [facility] PROCALCITONIN 2022-10-06 10:13:00 Faina Badillo [facility] EKG-12 LEAD 2022-10-05 21:55:22 Jo-Ann Whitehead Dianna [facility] COVID-19 (ID NOW RAPID 2022-10-05 21:14:00 Jo-Ann Whitehead [facility] TESTING) Medical Branch LAB ONLY COVID 2022-10-05 21:14:00 Jo-Ann Whitehead [facility] URINALYSIS 2022-10-05 20:48:00 Jo-Ann Whitehead Dianna [facility] XR CHEST 1 VW 2022-10-05 20:03:53 Jo-Ann Whitehead Dianna [facility] MAGNESIUM 2022-10-05 19:43:00 Jo-Ann Whitehead [facility] TROPONIN I 2022-10-05 19:43:00 Jo-Ann Whitehead [facility] COMP. METABOLIC PANEL 2022-10-05 19:43:00 Jo-Ann Whitehead [facility] ([id number]) [facility] CBC WITH DIFF 2022-10-05 19:43:00 Jo-Ann Whitehead [facility] N-TERMINAL PRO-BNP 2022-10-05 19:43:00 Jo-Ann Whiteehad [facility] HOSPITAL ADMISSION 2022-10-05 05:01:00 Doctor Unassigned, [facility] [place] [facility] POCT HEMOGLOBIN A1C TEST 2022-10-01 16:30:00 Dwight Can [facility] PATIENT FINANCIAL 2022-10-01 15:29:54 Doctor Unassigned, Un [facility] POLICY [place] [facility] Branch POCT GLUCOSE (AUTOMATED) 2022-09-18 21:53:00 Fredo Trinidad [facility] POCT GLUCOSE (AUTOMATED) 2022-09-18 17:19:00 Fredo Trinidad [facility] URINALYSIS 2022-09-18 16:20:00 Darius Hoffman [facility] POTASSIUM, URINE RANDOM 2022-09-18 16:20:00 Darius Hoffman [facility] SODIUM, URINE RANDOM 2022-09-18 16:20:00 Darius Hoffman [facility] CHLORIDE, URINE RANDOM 2022-09-18 16:20:00 Darius Hoffman [facility] PROTEIN CREAT RATIO URINE 2022-09-18 16:20:00 Darius Hoffman [facility] CT HEAD WO CONTRAST 2022-09-18 15:02:14 Faina Badillo [facility] POCT GLUCOSE (AUTOMATED) 2022-09-18 13:06:00 Fredo Trinidad [facility] AMMONIA, PLASMA 2022-09-18 10:29:00 Faina Badillo [facility] PHOSPHORUS 2022-09-18 10:28:00 Darius Hoffman [facility] URIC ACID 2022-09-18 10:28:00 Darius Hoffman [facility] CORTISOL AM 2022-09-18 10:28:00 Faina Badillo [facility] VITAMIN B12, LEVEL 2022-09-18 10:28:00 Faina Badillo [facility] FOLATE 2022-09-18 10:28:00 Faina Badillo [facility] TROPONIN I 2022-09-18 10:28:00 Fredo Trinidad o f [facility] FREE T4 2022-09-18 10:28:00 Faina Badillo [facility] THYROID STIMULATING 2022-09-18 10:28:00 Faina Badillo [facility] HORMONE [facility] COMP. METABOLIC PANEL 2022-09-18 10:28:00 Darius Hoffman [facility] ([id number]) [facility] CBC WITH DIFF 2022-09-18 10:28:00 Darius Hoffman [facility] POCT GLUCOSE (AUTOMATED) 2022-09-18 01:46:00 Fredo Trinidad [facility] EKG-12 LEAD 2022-09-17 23:08:07 Elsy Slater [facility] URINALYSIS 2022-09-17 23:05:00 Elsy Slater [facility] URINE DRUG (IMMUNOASSAY) - 2022-09-17 23:05:00 Elsy Slater [facility] COMPREHENSIVE DRUG SCREEN [facility] W/O REFLEX AC PANEL 21 + LACTIC ACID 2022-09-17 22:10:00 Elsy Slater [facility] XR CHEST 1 VW 2022-09-17 21:35:55 Elsy Slater [facility] AC PANEL 21 + LACTIC ACID 2022-09-17 21:17:00 Elsy Slater [facility] LIPASE 2022-09-17 20:08:00 Elsy Slater [facility] MAGNESIUM 2022-09-17 20:08:00 Elsy Slater [facility] TROPONIN I 2022-09-17 20:08:00 Elsy Slater [facility] COMP. METABOLIC PANEL 2022-09-17 20:08:00 Elsy Slater [facility] ([id number]) [facility] CBC WITH DIFF 2022-09-17 20:08:00 Elsy Slater [facility] POCT GLUCOSE(AGE >30DAYS) 2022-09-17 20:08:00 Elsy Slater [facility] N-TERMINAL PRO-BNP 2022-09-17 20:08:00 Elsy Slater [facility] AC PANEL 21 + LACTIC ACID 2022-09-17 20:08:00 Elsy Slater [facility] POCT GLUCOSE (AUTOMATED) 2022-09-17 20:07:00 Elsy Slater [facility] [id number] 2022-08-25 00:00:00 [facility] [id number] 2022-08-25 00:00:00 [facility] [id number] 2022-08-25 00:00:00 [facility] MEDICATION CORRESPONDENCE 2022-08-24 05:01:00 Doctor Eliza, [facility] AUTHORIZATION FOR RELEASE 2022-05-30 05:01:00 Doctor Kemisscatalina, [facility] [place] [facility] [place] AUTHORIZATION FOR RELEASE 2022 06:01:00 Doctor Eliza, [facility] Name Medical Branch PHYSICIAN ORDERS 2022-04-16 06:01:00 Doctor Eliza, [facility] DME/SUPPLY JUSTIFICATION 2022-04-06 06:01:00 Doctor Eliza, [facility] ASSIGNMENT OF BENEFITS 2022-03-08 19:44:47 Doctor Eliza, [facility] PHYSICIAN ORDERS 2022-02-12 06:01:00 Doctor Eliza, [facility] MEDICATION CORRESPONDENCE 2022-02-05 06:01:00 Doctor Eliza, [facility] MEDICATION CORRESPONDENCE 2021-12-22 05:01:00 Doctor Eliza, [facility] FLU 2021-12-06 19:32:57 Liborio Hall [facility] VACC(),65+YR,0.5 Medica l Branch ML,IM,ADJUVANTED,QUAD(FLUA D) PULMONARY REHAB ITP REPORT 2021-12-05 20:50:00 Doctor Eliza [facility] FUNGUS (ROUTINE) CULTURE 2021-11-28 19:49:00 Neeta Del Toro [facility] PULMONARY REHAB SESSION 2021-11-24 05:00:00 [facility] NO SHOW OR MISSED 2021-11-02 05:01:00 Doctor Unassigned, [facility] APPOINTMENT POLICY [place] [facility] h ACKNOWLEDGEMENT Colonoscopy<sup>1, 2</sup> 2015-09-21 05:00:00 M anne [place] Diabetic foot examination 2014-09-17 05:00:00 Me morijennifer [place] Operation<sup>4</sup> 2014-07-02 05:00:00 Pretty al Rolando [facility] Cervical laminoplasty with [facility] decompression of spinal cord Encounters Start End Encounter Admission Attending Care Care Encounter Source Date/Time Date/Time Type Type Clinicians Facility Department ID 2020-12-31 Emergency [facility] [id number] Univers 13:27:36 ity [facility] 2020-12-30 Emergency [facility] [id number] Univers 15:37:20 [facility] 2022-12-26 2022-12-26 Outpatient R YA QUINTANA [facility] 10 [id number] Univers 13:00:00 15:16:23 YA QUINTANA i ty [facility] 2022-12-26 2022-12-26 Ancillary Therapist, Adc Pulmonary [facility] 1.2.840.114 [id number] Univers 13:00:00 15:16:23 Visit Ya Quintana 350.1.13.10 it[place] of [place] [phone] Ar dical NAL 296 [facility] 2022-12-26 2022-12-26 Telephone Tess, [facility] 1.2.556.909 [id number] Univers 00:00:00 00:00:00 Dariana RODRIGUEZ 350.1.13.10 ity of [place] [phone] Ar dical NAL 059 [facility] 2022-12-25 2022-12-25 Ancillary Therapist, Adc Pulmonary [facility] 1.2.840.114 [id number] Univers 13:15:00 16:05:56 Visit Ya Quintana 350.1.13.10 ity of [place] [phone] Ar dical NAL 296 [facility] 2022-12-20 2022-12-20 Ancillary Therapist, Adc Pulmonary [facility] 1.2.840.114 [id number] Univers 13:15:00 15:41:36 Visit Ya Quintana 350.1.13.10 ity of [place] [phone] [address] 2022-12-20 2022-12-20 Orders Doctor REYES 1.2.840.114 [id number] Univers 00:00:00 00:00:00 Only Unassigned, TOYA 350.1.13.10 ity of [place] [facility] 4.2.7.2.686 Adelso as [phone] [address] 2022-12-17 2022-12-17 Telephone Cooper [facility] 1.2.955.026 [id number] Univers 00:00:00 00:00:00 Summer C [place] 350.1.13.10 i ty of [place] [phone] [facility] 296 [facility] 2022-12-11 2022-12-11 Telephone Bairon [facility] 1.2.856.494 [id number] Univers 00:00:00 00:00:00 Ya RODRIGUEZ 350.1.13.10 i ty of [place] [phone] Ar dicwv NAL 085 [facility] 2022-12-11 2022-12-11 Telephone Kenneth [facility] 1.2.667.478 [id number] Univers 00:00:00 00:00:00 Summer C [place] 350.1.13.10 i ty of [place] [id number] Ar dical NAL [address] [place] [address] 2022-12-05 2022-12-05 Telephone Kenneth [facility] 1.2.000.457 [id number] Univers 00:00:00 00:00:00 Summer C [place] 350.1.13.10 i ty [place] [phone] Ar dical NAL 296 [facility] 2022-12-03 2022-12-03 Telephone Kenneth [facility] 1.2.263.603 [id number] Univers 00:00:00 00:00:00 Summer C [place] 350.1.13.10 i ty of [place] [phone] Ar dical NAL 296 [facility] 2022-11-29 2022-11-29 Telephone Isabel [facility] 1.2.840.114 1 [id number] Univers 00:00:00 00:00:00 Liborio RODRIGUEZ 350.1.13.10 i ty of [place].7.2.[place] [id number] Ar dical [facility] 044 [facility] 2022-11-28 2022-11-28 Outpatient R YA QUINTANA [facility] 10 [id number] Univers 13:00:00 14:28:55 YA QUINTANA i ty of [facility] 2022-11-28 2022-11-28 Ancillary Therapist, Adc Pulmonary [facility] 1.2.840.114 [id number] Univers 13:00:00 14:28:55 Visit Ya Quintana 350.1.13.10 ity of [place] [phone] Ar dic[address] 2022-11-26 2022-11-26 Emergency X Jo-Ann WHITEHEAD [facility] ERT [id number] Univers 14:01:00 15:16:00 ity of [facility] 2022-11-26 2022-11-26 Emergency Jo-Ann Whitehead [facility] 1.2.840.114 10 [id number] Univers 14:01:00 15:16:00 Dianna RODRIGUEZ 350.1.13.10 i ty of [place].7.[place] [phone] [address] 2022-11-21 2022-11-21 Telephone Kenneth [facility] 1.2.931.857 [id number] Univers 00:00:00 00:00:00 Summer C [place] 350.1.13.10 i ty of [place] [phone] Ar dical NAL 296 [facility] 2022-11-20 2022-11-20 Ancillary Debbie Levy Rudolph [facility] 1.2.840. 114 [id number] Univers 17:00:00 18:00:00 Visit Hasmukh Etienne 350.1.13.10 ity of [place] [id number] Ar dical NAL 179 [facility] 2022-11-20 2022-11-20 Outpatient R HASMUKH ETIENNE [facility] [id number] [facility] 17:00:00 17:00:00 [facility]22-11-19 2022-11-19 Ancillary Therapist, Adc Pulmonary [facility] 1.2.840.114 [id number] Univers 13:00:00 13:47:57 Visit Dwight Can 350.1.13.1 0 [facility] [place] [id number] Ar dical NAL 296 [facility] 2022-11-15 2022-11-15 Ancillary Pauline Henry [facility] 1.2.840.1 14 [id number] Univers 14:30:00 15:06:03 Visit Hasmukh Etienne 350.1.13.10 [facility] [place] [id number] Ar dical NAL 179 [facility] 2022-11-14 2022-11-14 Ancillary Therapist, Adc Pulmonary [facility] 1.2.840.114 [id number] Univers 13:00:00 14:14:24 Visit Ya Quintana 350.1.13.10 [facility] [facility] [place] [id number] Ar dical NAL 296 [facility] 2022-11-13 2022-11-13 Ancillary Pauline Henry [facility] 1.2.840.1 14 [id number] Univers 11:00:00 11:55:53 Visit Hasmukh Etienne JENNIFER 350.1.13.10 [facility] [facility] 4[place] [id number] Ar dical NAL 179 [facility] 2022-11-12 2022-11-12 Ancillary Therapist, [facility] Pulmonary [facility] 1.2.840.114 [id number] Univers 13:00:00 13:59:26 Visit Ya Quintana 350.1.13.10 ity of [place] [id number] Ar dical NAL 296 [facility] 2022-11-12 2022-11-12 Orders Doctor REYES 1.2.840.114 [id number] Univers 00:00:00 00:00:00 Only Unassigned, TOYA 350.1.13.10 ity of [place] [facility] 4.2.7.2.686 Adelso as [id number] [address] 2022-11-12 2022-11-12 Telephone Bairon [facility] 1.2.335.111 [id number] Univers 00:00:00 00:00:00 Ya RODRIGUEZ 350.1.13.10 i ty of [place] 4[place] [phone] Ar dical NAL 085 [facility] 2022-11-09 2022-11-09 Ancillary Therapist, [facility] Pulmonary [facility] 1.2.840.114 [id number] Univers 13:30:00 16:20:03 Visit Ya Quintana 350.1.13.10 [facility] [facility] 4.[place] [phone] Ar dical NAL 296 [facility] 2022-11-09 2022-11-09 Outpatient R YA QUINTANA [facility] 10 [id number] Univers 10:30:00 11:02:41 YA QUINTANA i ty of [facility] 2022-11-09 2022-11-09 Office Bairon [facility] 1.2.840.114 [id number] Univers 10:30:00 11:02:41 Visit Ya RODRIGUEZ 350.1.13.10 i ty of [place] [phone] [facility] 085 [facility] 2022-11-09 2022-11-09 Telephone [facility] 1.2.463.409 [id number] Univers 00:00:00 00:00:00 Summer C [place] 350.1.13.10 i ty [place] [phone] [facility] 296 [facility] 2022-11-06 2022-11-06 Ancillary Mynor Henrya [facility] 1.2.840.1 14 [id number] Univers 13:00:00 14:04:12 Visit Dwight Can 350.1.13.1 0 ity of [place] [phone] [facility] 179 [facility] 2022-10-31 2022-10-31 [facility] [id number] Univers 14:00:00 14:00:00 LIBORIO rohan [facility] 2022-10-31 2022-10-31 Telephone [facility] 1.2.508.099 [id number] Univers 00:00:00 00:00:00 Summer C MANOJTON 350.1.13.10 i ty [place] [phone] [facility] 296 [facility] 2022-10-24 2022-10-24 Transition MELANIE Mejia 1.2.840.114 105 [id number] Univers 00:00:00 00:00:00 of Care Jared VICKERS 350.1.13.10 [place] [id number] [address] 2022-10-19 2022-10-23 Inpatient X DYANAHELEN [facility] [id number] Univers 03:50:00 17:17:00 GIORGI aranda [facility] 2022-10-19 2022-10-23 [facility] Anna Marie Bethea [facility] 1.2.840. 114 [id number] Univers 03:50:00 17:17:00 Encounter Elsy Slater [facility] 350.1.13. 10 ity of [place] 4.2.7.2.686 [facility] [phone] [address] ([facility]) 2022-10-17 2022-10-17 Telephone Kenneth [facility] 1.2.193.692 [id number] Univers 00:00:00 00:00:00 Summer RODRIGUEZ 350.1.13.10 i ty of [place] [id number] Ar dical [facility] 296 [facility] 2022-10-15 2022-10-15 Outpatient R TESS [facility] [id number] Univers 11:00:00 11:00:00 DARIANA aranda o f [facility] 2022-10-10 2022-10-10 Transition MELANIE Ty 1.2.840.114 [id number] Univers 00:00:00 00:00:00 of Care Nydia VICKERS 350.1.13.10 it y of [place] [place] [id number] [facility] [address] 2022-10-10 2022-10-10 Patient Doctor REYES 1.2.840.114 [id number] Univers 00:00:00 00:00:00 Secure Msg Unassigned, TOYA 350.1.13.10 ity of [place] [facility] 4.2.7.2.[id number] [facility] 0[address] 2022-10-05 2022-10-09 Inpatient X AMOS [facility] TATE [id number] Univers 14:24:00 18:50:00 FREDO aranda of [facility] 2022-10-05 2022-10-09 Hospital Jo-Ann Whitehead [facility] 1.2.840.1 14 [id number] Univers 14:24:00 18:50:00 Encounter Fredo Trinidad 350.1.13.10 ity [place] [id number] [facility] 0[address] 2022-10-02 2022-10-02 Patient Gurpreet [facility] 1.2.840.114 [id number] Univers 00:00:00 00:00:00 Outreach Lu Mcqueen JENNIFER 350.1.13.10 ity of [place] [id number] [address] 2022-10-01 2022-10-01 Outpatient R OBI-DWIGHT KAUR [facility] [id number] Univers 10:40:00 11:48:31 OBI-NATASHA [facility] ity of [facility] 2022-10-01 2022-10-01 Office Obi-Natasha [facility] 1.2.840.114 10 [id number] Univers 10:40:00 11:48:31 Visit , Dwight RODRIGUEZ 350.1.13.10 i ty of [place] [phone] [address] 2022-10-01 2022-10-01 Orders Doctor REYES 1.2.840.114 [id number] Univers 00:00:00 00:00:00 Only Unassigned, TOYA 350.1.13.10 ity of [place] [facility] 4.2.7.2.[id number] [facility] [address] 2022-10-01 2022-10-01 Telephone Obi-[facility] 1.2.840.114 [id number] Univers 00:00:00 00:00:00 , Dwight RODRIGUEZ 350.1.13.10 i ty of [place] [id number] [address] 2022-09-19 2022-09-19 Transition MELANIE Ty 1.2.840.114 104 [id number] Univers 00:00:00 00:00:00 of Care Nydia VICKERS 350.1.13.10 it y of [place].[address] [place] [id number] [facility] [address] 2022-09-19 2022-09-19 Patient Doctor REYES 1.2.840.114 [id number] Univers 00:00:00 00:00:00 Secure Msg Unassigned, TOYA 350.1.13.10 ity of [place] [facility] 4.2.7.2.[id number] [facility] 0[address] 2022-09-17 2022-09-18 Inpatient X AMOS [facility] TATE [id number] Univers 14:51:00 19:08:00 FREDO itrohan [facility] 2022-09-17 2022-09-18 Hospital Elsy Slater [facility] 1.2.84 0.114 [id number] Univers 14:51:00 19:08:00 Encounter Fredo Trinidad 350.1.13.10 ity of [place] [id number] [facility] [address] [place] 2022-09-10 2022-09-10 Reggie Hall [facility] 1.2.840.114 [id number] Univers 00:00:00 00:00:00 Liborio RODRIGUEZ 350.1.13.10 i ty of [place] [id number] Ar dical NAL 044 [facility] 2022-08-21 2022-08-26 Inpatient EM Moses BILL TELE [id number] [facility] 16:50:00 20:12:00 Caren 57 [facility] 2022-08-24 2022-08-24 Orders Doctor REYES 1.2.840.114 [id number] Univers 00:00:00 00:00:00 Only Unassigned, TOYA 350.1.13.10 ity of [place] [facility] 4.2.7.2.[id number] [facility] [address] 2022-08-21 2022-08-21 Outpatient ROXANE Lopes LABO [id number] [facility] 23:54:00 23:54:00 Caren 25 [facility] 2022-08-15 2022-08-15 Telephone Bairon [facility] 1.2.857.094 [id number] Univers 00:00:00 00:00:00 Ya RODRIGUEZ 350.1.13.10 i ty of [place] [id number] Ar dical NAL 085 [facility] 2022-08-10 2022-08-10 Outpatient R ISABEL [facility] [id number] Univers 13:20:00 13:20:00 PETER ity of [facility] 2022-07-09 2022-07-09 Outpatient R YA QUINTANA [facility] 10 [id number] Univers 10:00:00 10:00:00 YA QUINTANA i ty of [facility] 2022-06-20 2022-06-20 [facility] 1.2.840.114 [id number] Univers 00:00:00 00:00:00 Liborio RODRIGUEZ 350.1.13.10 i ty of [place] [id number] Ar dicwv NAL 044 [facility] 2022-06-03 2022-06-03 [facility] 1.2.840.114 [id number] Univers 00:00:00 00:00:00 Libroio RODRIGUEZ 350.1.13.10 i ty of [place] 791.8740526 Ar dicwv NAL 044 [facility] 2022-06-02 2022-06-02 [facility] 1.2.840.114 [id number] Univers 00:00:00 00:00:00 Jaxon TREJO 350.1.13.10 i ty of [facility] 4.[place].7.2.[id number] [facility] [address] 2022-05-30 2022-05-30 Orders Doctor PULLIAM 1.2.840.114 [id number] Univers 00:00:00 00:00:00 Only Unassigned, TOYA 350.1.13.10 ity of [place] [facility] 4.2.7.2.[address] [facility] [address] 2022 2022 Orders Doctor REYES 1.2.840.114 [id number] Univers 00:00:00 00:00:00 Only Unassigned, TOYA 350.1.13.10 ity of [place] [facility] 4.2.7.2.686 [place] as [id number] [address] 2022-04-27 2022-04-27 [facility]phone [facility] 1.2.840.114 1 [id number] Univers 00:00:00 00:00:00 Liborio RODRIGUEZ 350.1.13.10 i ty [facility] [place] 351.2168555 Ar dical NAL 044 [facility] 2022-04-16 2022-04-16 Literacy Specialist 2, Adc Lab [facility] 1.2.840.114 [id number] Univers 10:45:00 11:00:00 Visit Dariana Giron 350.1.13.10 ity of [place] 4.2.7.2.[address] [facility] [id number] Ar dical NAL 353 [facility] 2022-04-16 2022-04-16 Outpatient R SUN [facility] [id number] Univers 10:45:00 10:45:00 MARAL aranda of [facility] 2022-04-16 2022-04-16 Office [facility] 1.2.840.114 [id number] Univers 10:20:00 10:40:00 Visit Dariana RODRIGUEZ 350.1.13.10 it[place] [facility] 4[place] 533.6685477 Ar dical NAL 059 [facility] 2022-04-16 2022-04-16 Orders Doctor PULLIAM 1.2.840.114 [id number] Univers 00:00:00 00:00:00 Only Unassigned, TOYA 350.1.13.10 ity of [place] [facility] 4.2.7.2.686 [place] as [id number] [address] 2022-04-13 2022-04-13 Nurse Annette PULLIAM 1.2.840.114 [id number] Univers 00:00:00 00:00:00 Triage Jim, TOYA 350.1.13.10 ity [facility] 4.2.7.2.686 [place] [id number] [address] 2022-04-12 2022-04-12 Office [facility] 1.2.840.114 [id number] Univers 13:00:00 13:40:00 Visit Liborio RODRIGUEZ 350.1.13.10 i ty of [place] 047.8593550 Ar dical [address] 2022-04-12 2022-04-12 Outpatient R [facility] 1043 [id number] Univers 13:00:00 13:00:00 [facility] 2022-04-11 2022-04-11 Nurse REYES Núñez 1.2.840.114 [id number] Univers 00:00:00 00:00:00 Triage Selene PITTMAN 350.1.13.[address] [facility] 4.2.7.2.686 [place] 604.0075291 [address] 2022-04-10 2022-04-10 Literacy Specialist 2, Adc Lab [facility] 1.2.840.114 [id number] Univers 14:30:00 14:45:00 Visit Liborio Hall 350.1.13.10 ity of [place] [id number] [facility] 353 [facility] 2022-04-10 2022-04-10 Outpatient [facility] [id number] [id number] Univers 14:30:00 14:30:00 LIBORIO [facility] 2022-04-10 2022-04-10 Telephone [facility] 1.2.840.114 1 [id number] Univers 00:00:00 00:00:00 Liborio RODRIGUEZ 350.1.13.10 i ty of [place] [phone] Ar dical [address] 2022-04-06 2022-04-06 Telephone [facility] 1.2.840.114 1 [id number] Univers 00:00:00 00:00:00 Liborio RODRIGUEZ 350.1.13.10 i ty of [place] [phone] Ar dical NAL 044 [facility] 2022-04-06 2022-04-06 Orders Doctor REYES 1.2.840.114 [id number] Univers 00:00:00 00:00:00 Only Unassigned, TOYA 350.1.13.10 ity of [place] [facility] 4.2.7.2.686 [place] as [phone] [address] 2022-04-05 2022-04-[address] [facility] 1.2.177.122 [id number] Univers 00:00:00 00:00:00 Ya RODRIGUEZ 350.1.13.10 i ty of [place] [id number] Ar dical NAL 085 [facility] 2022-03-27 2022-03-27 [facility] 1.2.840.114 [id number] Univers 00:00:00 00:00:00 Liborio RODRIGUEZ 350.1.13.10 i ty of [place] [id number] Ar dical NAL 044 [facility] 2022-03-26 2022-03-26 Telephone [facility] 1.2.840.114 1 [id number] Univers 00:00:00 00:00:00 Liborio RODRIGUEZ 350.1.13.10 i ty of [place] [phone] Ar dical NAL 044 [facility] 2022-03-19 2022-03-19 [facility] 1.2.840.114 [id number] Univers 00:00:00 00:00:00 Liborio RODRIGUEZ 350.1.13.10 i ty of [place] [phone] Ar dical NAL 044 [facility] 2022-03-112022-03-11 Reg[facility] 1.2.840.114 [id number] Univers 00:00:00 00:00:00 Kierraclaudia JENNIFER 350.1.13.10 i ty [facility] [place] [id number] Ar dical NAL 085 [facility] 2022-03-08 2022-03-08 Outpatient R [facility] [id number] Univers 14:40:00 16:00:29 LIBORIO ity of [facility] 2022-03-08 2022-03-08 Office [facility] 1.2.840.114 [id number] Univers 14:40:00 16:00:29 Visit Liborio RODRIGUEZ 350.1.13.10 i ty of [place] [phone] Ar dical NAL 044 [facility] 2022-03-08 2022-03-08 Office [facility] 1.2.840.114 [id number] [id number] Univers 14:00:00 14:20:00 Visit Liborio RODRIGUEZ 350.1.13.10 i ty of [place] [phone] Ar dical NAL 044 [facility] 2022-03-08 2022-03-08 Orders Doctor REYES 1.2.840.114 [id number] Univers 00:00:00 00:00:00 Only Unassigned, TOYA 350.1.13.10 ity of [place] [facility] 4.2.7.2.686 Adelso as [phone] [address] 2022-03-05 2022-03-05 Literacy Specialist 2, Adc Lab [facility] 1.2.840.114 [id number] Univers 13:00:00 13:15:00 Visit Liborio Hall 350.1.13.10 [facility]y [facility] [place] [phone] Ar dical NAL 353 [facility] 2022-03-05 2022-03-05 Outpatient R ISABEL [facility] [id number] Univers 13:00:00 13:00:00 LIBORIO ity of [facility] 2022-03-05 2022-03-05 Patient Doctor REEYS 1.2.840.114 [id number] Univers 00:00:00 00:00:00 Secure Msg Unassigned, TOYA 350.1.13.10 ity of [place] [facility] 4.2.7.2.[phone] [facility] [address] 2022-02-20 2022-02-20 Refindy Hall [facility] 1.2.840.114 [id number] Univers 00:00:00 00:00:00 Liborio RODRIGUEZ 350.1.13.10 i ty [facility] [place] [phone] Ar dical NAL 044 [facility] 2022-02-12 2022-02-12 Literacy Specialist 2, Adc Lab [facility] 1.2.840.114 [id number] Univers 14:30:00 14:45:00 Visit Maral Garsia 350.1.13.10 ity [facility] [place] [phone] Ar dical NAL 353 [facility] 2022-02-12 2022-02-12 Outpatient R SUN [facility] [id number] Univers 14:30:00 14:30:00 FELIPARUTHIEA ity of [facility] 2022-02-12 2022-02-12 Refindy [facility] 1.2.840.114 [id number] Univers 00:00:00 00:00:00 Ya RODRIGUEZ 350.1.13.10 i ty [facility] [place] [phone] Ar dical NAL 085 [facility] 2022-02-12 2022-02-12 Orders Doctor REYES 1.2.840.114 [id number] Univers 00:00:00 00:00:00 Only Unassigned, TOYA 350.1.13.10 ity of [place] [facility] 4.2.7.2.[phone] [facility] [address] 2022-02-12 2022-02-12 Refill [facility] 1.2.840.114 [id number] [id number] Univers 00:00:00 00:00:00 Liborio RODRIGUEZ 350.1.13.10 i ty of [place] [phone] Ar dical NAL 044 [facility] 2022-02-07 2022-02-07 Telephone [facility] 1.2.840.114 [id number] Univers 00:00:00 00:00:00 Liborio RODRIGUEZ 350.1.13.10 i ty of [place] [phone] Ar dical NAL 044 [facility] 2022-02-05 2022-02-05 Orders Doctor REYES 1.2.840.114 [id number] Univers 00:00:00 00:00:00 Only Unassigned, TOYA 350.1.13.10 ity of [place] [facility] 4.2.7.2.686 [place] as [phone] [address] 2022-01-24 2022-01-24 Refill [facility] 1.2.840.114 [id number] Univers 00:00:00 00:00:00 Ya RODRIGUEZ 350.1.13.10 i ty of [place] [phone] Ar dical NAL 085 [facility] 2022-01-24 2022-01-24 Refill [facility]NEW [facility] 1.2.840.114 [id number] [id number] Univers 00:00:00 00:00:00 Liborio RODRIGUEZ 350.1.13.10 i ty of [place] [phone] Ar dical NAL 044 [facility] 2022-01-18 2022-01-18 Refindy HallNEW [facility] 1.2.840.114 [id number] [id number] Univers 00:00:00 00:00:00 Liborio RODRIGUEZ 350.1.13.10 i ty of [place] [phone] Ar dical NAL 044 [facility] 2022-01-12 2022[facility]01-12 [facility] 1.2.840.114 [id number] [id number] Univers 00:00:00 00:00:00 Liborio RODRIGUEZ 350.1.13.10 i ty [facility] 4[place] [phone] Ar dical NAL [address] [place] [address] 2022-01-12 2022-01-12 [facility] 1.2.840.114 [id number] [id number] Univers 00:00:00 00:00:00 Liborio RODRIGUEZ 350.1.13.10 i ty of [place] 4[place] [phone] Ar dical NAL [address] [place] [address] 2022-01-09 2022-01-09 [facility] 1.2.840.114 [id number] [id number] Univers 00:00:00 00:00:00 Liborio RODRIGUEZ 350.1.13.10 i ty of [place] [phone] Ar dical NAL [address] [place] [address] 2022-01-08 2022-01-08 Outpatient R YA QUINTANA [facility] 10 [id number] Univers 10:00:00 10:23:18 YA QUINTANA i ty of [facility] 2022-01-08 2022-01-08 Office Bairon [facility] 1.2.840.114 [id number] Univers 10:00:00 10:23:18 Visit Ya RODRIGUEZ 350.1.13.10 i ty of [place] [phone] Ar dicwv NAL 085 [facility] 2022-01-02 2022-01-02 [facility] 1.2.840.114 [id number] Univers 00:00:00 00:00:00 Liborio RODRIGUEZ 350.1.13.10 i ty [facility] 4[place] [phone] Ar dical NAL 044 [facility] 2022-01-02 2022-01-02 Refill Bairon [facility] 1.2.840.114 [id number] Univers 00:00:00 00:00:00 Ya RODRIGUEZ 350.1.13.10 i ty of [place] [phone] Ar dical NAL 085 [facility] 2021-12-29 2021-12-29 Telephone [facility] 1.2.145.177 [id number] [id number] Univers 00:00:00 00:00:00 Ya RODRIGUEZ 350.1.13.10 i ty of [place] [phone] Ar dical NAL 085 [facility] 2021-12-28 2021-12-28 Telephone [facility]NEW [facility] 1.2.840.114 [id number] Univers 00:00:00 00:00:00 Liborio RODRIGUEZ 350.1.13.10 i ty of [place] [phone] Ar dical NAL 044 [facility] 2021-12-22 2021-12-22 Orders Doctor REYES 1.2.840.114 [id number] Univers 00:00:00 00:00:00 Only Unassigned, TOYA 350.1.13.10 ity of [place] [facility] 4.2.7.2.686 [place] as [phone] [address] 2021-12-19 2021-12-19 Letter Kenneth [facility] 1.2.840.114 [id number] Univers 00:00:00 00:00:00 (Out) Summer RODRIGUEZ 350.1.13.10 i ty of [place] [phone] Ar dical NAL 296 [facility] 2021-12-06 2021-12-06 Outpatient R ISABEL [facility] [id number] [id number] Univers 13:20:00 14:20:30 LIBORIO aranda of [facility] 2021-12-06 2021-12-06 Office [facility]NEW [facility] 1.2.840.114 [id number] Univers 13:20:00 14:20:30 Visit Liborio RODRIGUEZ 350.1.13.10 i ty [facility] [place] [phone] Ar dical NAL 044 [facility] 2021-12-05 2021-12-05 Outpatient R MIKEY [facility] [id number] Univers 10:00:00 16:37:56 LEXI aranda [facility] 2021-12-05 2021-12-05 Ancillary Therapist, [facility] Pulmonary [facility] 1.2.840.114 [id number] Univers 10:00:00 16:37:56 Visit Lexi Vaca 350.1.13. 10 [place] [facility] [place] [phone] Ar dical NAL 296 [facility] 2021-12-05 2021-12-05 Orders Doctor REYES 1.2.840.114 [id number] Univers 00:00:00 00:00:00 Only Unassigned, TOYA 350.1.13.10 ity of [place] [facility] 4.2.7.2.686 [place] as [phone] [address] 2021-11-30 2021-11-30 Outpatient Ab VACA [facility] [id number] Univers 09:00:00 14:00:05 LEXI aranda [facility] 2021-11-30 2021-11-30 Ancillary Therapist, [facility] Pulmonary [facility] 1.2.840.114 [id number] Univers 09:00:00 14:00:05 Visit Lexi Vaca 350.1.13. 10 [place] [place] 489.2961651 Ar dical NAL 296 [facility] 2021-11-30 2021-11-30 Patient Doctor [facility] 1.2.840.114 [id number] Univers 00:00:00 00:00:00 Secure Msg Unassigned, JENNIFER 350.1.13.10 ity of [place] [phone] Ar dical NAL 059 [facility] 2021-11-28 2021-11-28 Outpatient R KATEY [facility] [id number] Univers 14:00:00 14:18:18 ROLA aranda [facility] 2021-11-28 2021-11-28 Office Katey [facility] 1.2.840.114 [id number] Univers 14:00:00 14:18:18 Visit Rola ROOT 350.1.13.10 [place] [facility] [phone] [facility] AND [address] [facility] 2021-11-28 2021-11-28 Ancillary Therapist, [facility] Pulmonary [facility] 1.2.840.114 [id number] Univers 10:00:00 11:30:45 Visit Lexi Vaca 350.1.13. 10 ity of [place] [id number] Ar dical NAL 296 [facility] 2021-11-28 2021-11-28 Literacy Specialist 2, Adc Lab [facility] 1.2.840.114 [id number] Univers 11:00:00 11:15:00 Visit Maral Garsia 350.1.13.10 ity of [place] [id number] Ar dical NAL 353 [facility] 2021-11-28 2021-11-28 Outpatient R MIKEY [facility] [id number] Univers 10:00:00 10:00:00 LEXI aranda [facility] 2021-11-24 2021-11-24 Ancillary Therapist, [facility] Pulmonary [facility] 1.2.840.114 [id number] Univers 11:00:00 13:01:57 Visit Lexi [place]aca 350.1.13. 10 ity of [place] [phone] Ar dical NAL 296 [facility] 2021-11-24 2021-11-24 Orders Doctor PULLIAM 1..840.114 [id number] Univers 00:00:00 00:00:00 Only Unassigned, TOYA 350.1.13.10 ity of [place] [facility] 4.2.7.2.686 [place] as [phone] [address] 2021-11-22 2021-11-22 Refindy Quintana [facility] 1.2.840.114 [id number] Univers 00:00:00 00:00:00 Ya RODRIGUEZ 350.1.13.10 i ty [facility] [place] [id number] Ar dical NAL 085 [facility] 2021-11-21 2021-11-21 Ancillary Therapist, [facility] Pulmonary [facility] 1.2.840.114 [id number] Univers 10:00:00 11:38:20 Visit Lexi Vaca 350.1.13. 10 [facility] [facility] [place] [phone] Ar dical NAL 296 [facility] 2021-11-19 2021-11-19 Refindy Hall [facility] 1.2.840.114 [id number] Univers 00:00:00 00:00:00 Liborio RODRIGUEZ 350.1.13.10 i ty of [place] [phone] Ar dical NAL 044 [facility] 2021-11-16 2021-11-16 Outpatient R MIKEY [facility] [id number] Univers 10:00:00 11:59:47 LEXI itrohan [facility] 2021-11-16 2021-11-16 Ancillary Therapist, [facility] Pulmonary [facility] 1.2.840.114 [id number] Univers 10:00:00 11:59:47 Visit Lexi Vaca 350.1.13. 10 [facility] [facility] [place] [phone] Ar dical NAL 296 [facility] 2021-11-16 2021-11-16 Orders Doctor PULLIAM 1.2.840.114 [id number] Univers 00:00:00 00:00:00 Only Unassigned, TOYA 350.1.13.10 ity of [place] [facility] 4.2.7.2.686 [place] [phone] [address] 2021-11-14 2021-11-14 Ancillary Therapist, [facility] Pulmonary [facility] 1.2.840.114 [id number] Univers 10:00:00 11:49:36 Visit Lexi Vaca 350.1.13. 10 ity of [place] [id number] Ar dical NAL 296 [facility] 2021-11-14 2021-11-14 [facility] [id number] Univers 10:00:00 10:00:00 LEXI [facility] 2021-11-12 2021-11-12 Refindy [facility] 1.2.840.114 [id number] Univers 00:00:00 00:00:00 Liborio RODRIGUEZ 350.1.13.10 i ty of [place] 389.2163180 Ar dical NAL 044 [facility] 2021-11-10 2021-11-10 [facility] [id number] Univers 10:00:00 11:11:06 LEXI aranda [facility] 2021-11-10 2021-11-10 Ancillary Therapist, [facility] Pulmonary [facility] 1.2.840.114 [id number] Univers 10:00:00 11:11:06 Visit Leix [place] 350.1.13. 10 ity [facility] [place]2.[place] [phone] Ar dical NAL [address] [place] [address] 2021-11-07 2021-11-07 Out[facility] [id number] Univers 10:00:00 11:55:14 LEXI aranda [facility] 2021-11-07 2021-11-07 Ancillary Therapist, [facility] Pulmonary [facility] 1.2.840.114 [id number] Univers 10:00:00 11:55:14 Visit Lexi Vaca 350.1.13. 10 ity of [place] [phone] Ar [address] 2021-11-07 2021-11-07 Orders Doctor PULLIAM 1.2.840.114 [id number] Univers 00:00:00 00:00:00 Only Unassigned, TOYA 350.1.13.10 ity of [place] [facility] 4.2.7.2.686 [place] as [phone] [address] 2021-11-03 2021-11-03 Telephone [facility] 1.2.129.470 [id number] Univers 00:00:00 00:00:00 Summer RODRIGUEZ 350.1.13.10 i ty of [place] [phone] [address] 2021-11-02 2021-11-02 Outpatient Ab VACA [facility] [id number] Univers 09:00:00 11:11:30 LEXI aranda [facility] 2021-11-02 2021-11-02 Ancillary Therapist, Adc Pulmonary [facility] 1.2.840.114 [id number] Univers 09:00:00 11:11:30 Visit Lexi Vaca 350.1.13. 10 ity of [place] [phone] [address] 2021-11-02 2021-11-02 Outpatient Ab ETIENNE [facility] [id number] Univers 11:00:00 11:00:00 HASMUKH aranda [facility] 2021-11-02 2021-11-02 Orders Doctor PULLIAM 1.2.840.114 [id number] Univers 00:00:00 00:00:00 Only Unassigned, TOYA 350.1.13.10 ity of [place] [facility] 4.2.7.2.686 [place] as [phone] [address] 2021-11-01 2021-11-01 [facility] 1.2.840.114 [id number] Univers 08:52:21 23:59:00 Encounter Dariana RODRIGUEZ 350.1.13.10 ity of [place] [address] [phone] [facility] [address] 2021-11-01 2021-11-01 [facility] 1.2.840.114 [id number] Univers 08:52:08 23:59:00 Encounter Dariana [place] 350.1.13.10 ity of [place] 4.2.7.2.686 [facility] [phone] [place] [address] 2021-11-01 2021-11-01 [facility] 1.2.840.114 [id number] Univers 08:51:53 08:51:53 Encounter Qiajoni [place] 350.1.13.10 ity of [place] 4.2.7.2.686 [facility] [phone] [address] 2021-11-01 2021-11-01 Outpatient R [facility] [id number] Univers 08:51:26 08:51:26 QIANGJUN ity o f [facility] 2021-11-01 2021-11-01 Outpatient R [facility] [id number] Univers 08:51:26 08:51:26 QIANGJUN ity o f [facility] 2021-11-01 2021-11-01 [facility] 1.2.840.114 [id number] Univers 08:51:26 08:51:26 Encounter Dariana [place] 350.1.13.10 ity of [place] [address] [place] [phone] 2021-11-01 2021-11-01 Outpatient R [facility] [id number] Univers 00:00:00 00:00:00 QIANGJUN ity o f [facility] 2021-11-01 2021-11-01 Patient [facility] 1.2.840.114 [id number] Univers 00:00:00 00:00:00 Secure Msg Dariana [place] 350.1.13.10 ity of [place] 4.2.7.2.686 [facility] PROFESSIO [phone] Ar dical [facility] 059 [facility] 2021-10-31 2021-10-31 [facility] [id number] Univers 11:00:00 11:52:17 HASMUKH ity of [facility] 2021-10-31 2021-10-31 Ancillary Halina Leavitt [facility] 1.2.84 0.114 [id number] Univers 11:00:00 11:52:17 Visit Hasmukh Etienne JENNIFER 350.1.13.10 ity of [place] [phone] Ar dical NAL 179 [facility] 2021-10-26 2021-10-26 Literacy Specialist 2, Adc Lab [facility] 1.2.840.114 [id number] Univers 14:00:00 14:15:00 Visit Unknown, Attending JENNIFER 350.1.13.1 0 ity of [place] [phone] Ar dical NAL 353 [facility] 2021-10-26 2021-10-26 Outpatient R UNKNOWN, [facility] [id number] Univers 14:00:00 14:00:00 ATTENDING ity [facility] 2021-10-26 2021-10-26 Ancillary Aries Florence Jo-Ann [facility] 1.2.840 .114 [id number] Univers 13:00:00 13:59:53 Visit Hasmukh Etienne JENNIFER 350.1.13.10 [facility] [place] [phone] Ar dical NAL 179 [facility] 2021-10-26 2021-10-26 Telephone Kenneth [facility] 1.2.814.967 [id number] Univers 00:00:00 00:00:00 Summer RODRIGUEZ 350.1.13.10 i ty of [place] [phone] Ar dical NAL 296 [facility] 2021-10-26 2021-10-26 Orders Doctor PULLIAM 1.2.840.114 [id number] Univers 00:00:00 00:00:00 Only Unassigned, TOYA 350.1.13.10 ity of [place] [facility] 4.2.7.2.686 [place] [phone] [address] 2021-10-24 2021-10-24 Outpatient R TESS [facility] [id number] Univers 00:00:00 00:00:00 EDUARDOLINDA rosi ashok funez [facility] 2021-10-24 2021-10-24 [facility] 1.2.840.114 [id number] Univers 00:00:00 00:00:00 Liborio RODRIGUEZ 350.1.13.10 i ty [facility] [place] [id number] Ar dical NAL 044 [facility] 2021-10-24 2021-10-24 Refill [facility] 1.2.840.114 [id number] Univers 00:00:00 00:00:00 Liborio RODRIGUEZ 350.1.13.10 i ty [facility] 4[place] 380.4876694 Ar dical NAL 044 [facility] 2021-10-19 2021-10-19 Ancillary Halina Leavitt [facility] 1.2.84 0.114 [id number] Univers 11:00:00 13:23:38 Visit Hasmukh Etienne 350.1.13.10 it[facility] [place] [id number] Ar dical NAL 179 [facility] 2021-10-19 2021-10-19 Outpatient R LOWELL [facility] [id number] Univers 11:00:00 11:00:00 HASMUKH aranda [facility] 2021-10-11 2021-10-11 Outpatient R EVELINE LUCIO [facility] [id number] Univers 13:30:00 14:41:51 EVELINE LUCIO [facility] 2021-10-11 2021-10-11 Office Gayle [facility] 1.2.840.114 [id number] Univers 13:30:00 14:41:51 Visit Eveline RODRIGUEZ 350.1.13.10 ity [facility] [place] [id number] Ar dical NAL 044 [facility] 2021-10-11 2021-10-11 Outpatient R EVELINE LUCIO [facility] [id number] Univers 13:30:00 13:30:00 EVELINE LUCIO ity of [facility] 2021-10-06 2021-10-06 Telephone [facility] 1.2.202.150 [id number] Univers 00:00:00 00:00:00 Dariana RODRIGUEZ 350.1.13.10 ity of [place] [facility] [phone] Ar dical NAL 059 [facility] 2021-10-06 2021-10-06 Transition MELANIE Ty 1.2.840.114 [id number] Univers 00:00:00 00:00:00 of Kortney VICKERS 350.1.13.10 it y of [place].[address] [phone] [facility] [address] 2021-10-04 2021-10-05 Outpatient [facility] T[facility] [id number] Univers 04:33:00 15:10:00 ADNAN ity [facility] 2021-10-04 2021-10-05 Emergency Xavier Tejada [facility] 1.2.840. 114 [id number] Univers 04:33:00 15:10:00 Marisela Quiles 350.1.13.10 ity [facility] [place].2.[place] [phone] [facility] [address] 2021-10-05 2021-10-05 Outpatient R [facility] [id number] Univers 13:00:00 13:00:00 ity of [facility] 2021-10-04 2021-10-04 Nurse REYES Lagunas 1.2.840.114 [id number] Univers 00:00:00 00:00:00 Triage Marylin TOYA 350.1.13.10 it y of [facility] 4.2.7.2.[phone] [facility] [address] 2021-10-04 2021-10-04 Letter Testing, UNIVERSIT 1.2.840.114 [id number] Univers 00:00:00 00:00:00 (Out) [facility] Y HEALTH 350.1.13.10 i ty of [facility] Function [phone] [facility] [address] 2021-10-04 2021-10-04 Patient Doctor UNIVERSIT 1.2.085.689 [id number] Univers 00:00:00 00:00:00 Secure Msg Unassigned, Y HEALTH 350.1.13.10 ity of [place] [place] [phone] [facility] [address] 2021-10-03 2021-10-03 Outpatient R LOWELL [facility] [id number] Univers 13:00:00 14:20:09 [facility] 2021-10-03 Ancillary Chuck Chris [facility] 1.2.840. 114 [id number] Univers 13:00:00 14:20:09 Visit Hasmukh Etienne 350.1.13.10 [facility] [place] [phone] Ar dicjennifer NAL 179 [facility] 2021-10-03 2021-10-03 Outpatient Ab [facility] [id number] Univers 13:00:00 14:20:09 [facility]-10[facility]01 2021-10-01 [facility] 1.2.840.114 [id number] Univers 00:00:00 00:00:00 Eveline RODRIGUEZ 350.1.13.10 [facility] [place] [phone] Ar darshana NAL 044 [facility] 2021-10-01 2021-10-01 Refindy [facility] 1.2.840.114 [id number] Univers 00:00:00 00:00:00 Ogkailyn RODRIGUEZ 350.1.13.10 [facility] [place] [phone] Me dical NAL 044 [facility] 2021-09-30 2021-09-30 Patient Doctor [facility] 1.2.840.114 [id number] Univers 00:00:00 00:00:00 Secure Msg Unassigned, MULTISPEC 350.1.13.10 ity of [place] [facility] [phone] [facility] AND [address] [facility] 2021-09-29 2021-09-29 Outpatient R YA QUINTANA [facility] [id number] Univers 11:00:00 11:42:05 YA QUINTANA i ty of [facility] 2021-09-29 2021-09-29 Office Bairon [facility] 1.2.840.114 [id number] Univers 11:00:00 11:42:05 Visit Ya RODRIGUEZ 350.1.13.10 i [facility] 4[place] [phone] Ar dical NAL 085 [facility] 2021-09-29 2021-09-29 Outpatient R YA QUIN[facility]NA [facility] 10 [id number] Univers 11:00:00 11:00:00 YA QUIN[place]NA i ty of [facility] 2021-09-29 2021-09-29 Telephone Bairon [facility] 1.2.571.385 [id number] Univers 00:00:00 00:00:00 Ya RODRIGUEZ 350.1.13.10 i [facility] [place] [phone] Ar dical NAL 085 [facility] 2021-09-28 2021-09-28 Ancillary Nury Cortez [facility] 1.2. 840.114 [id number] Univers 16:00:00 16:45:00 Visit Hasmukh Etienne 350.1.13.10 ity of [place] [phone] Ar dical NAL 179 [facility] 2021-09-28 2021-09-28 Outpatient R LOWELL [facility] [id number] Univers 16:00:00 16:00:00 HASMUKH ity of [facility] 2021-09-27 2021-09-27 Outpatient R MILDRED [facility] [id number] Univers 15:00:00 15:50:24 KAVON ity [facility] 2021-09-27 2021-09-27 Outpatient R MILDRED [facility] [id number] Univers 15:00:00 15:50:24 KAVON ity [facility] 2021-09-27 2021-09-27 [facility] 1.2.840.114 [id number] Univers 15:00:00 15:50:24 Visit [facility] 350.1.13.10 it y of [place] 4.2.7.2.686 Adelso as NENO?BLEA [phone] Ar dicwv KNEY [address] [facility] 2021-09-26 2021-09-26 Ancillary Nury Cortez [facility] 1.2. 840.114 [id number] Univers 14:30:00 15:15:00 Visit Hasmukh Etienne 350.1.13.10 ity of [place] [phone] Ar dicwv NAL 179 [facility] 2021-09-23 2021-09-23 Refindy Quintana [facility] 1.2.840.114 [id number] Univers 00:00:00 00:00:00 Ya NEWELLPEC 350.1.13.10 ity of [place] [phone] Miguel Reid [address] [facility] 2021-09-23 2021-09-23 Refindy Hall [facility] 1.2.840.114 [id number] Univers 00:00:00 00:00:00 Liborio RODRIGUEZ 350.1.13.10 i ty of [place] [phone] Ar dical NAL [address] [facility] 2021-09-22 2021-09-22 Refindy Levy [facility] 1.2.840.114 [id number] Univers 00:00:00 00:00:00 Kavon ARANDATON 350.1.13.10 i ty of [place] [phone] Ar dical NAL 044 [facility] 2021-09-21 2021-09-21 Outpatient R [facility]LL [facility] [id number] Univers 16:00:00 16:47:06 HASMUKH ity [facility] 2021-09-21 2021-09-21 Ancillary Nury Cortez [facility] 1.2. 840.114 [id number] [facility] 16:00:00 16:47:06 Visit Hasmukh Etienne 350.1.13.10 ity of [place] [phone] [facility] 179 [facility] 2021-09-20 2021-09-20 Outpatient R [facility]DRED [facility] [id number] Univers 13:30:00 14:59:35 KAVON ity [facility] 2021-09-20 2021-09-20 Outpatient R [facility]ED [facility] [id number] Univers 13:30:00 14:59:35 KAVON y [facility] 2021-09-20 2021-09-20 Office Mildred [facility] 1.2.840.114 [id number] Univers 13:30:00 14:59:35 Visit Kavon RODRIGUEZ 350.1.13.10 i ty of [place] 4[place] [phone] Ar dical NAL 044 [facility] 2021-09-19 2021-09-19 Ancillary Nury Cortez [facility] 1.2. 840.114 [id number] Univers 16:00:00 16:45:00 Visit Hasmukh Etienne 350.1.13.10 [facility] [place] [phone] Ar dical NAL 179 [facility] 2021-09-14 2021-09-14 Ancillary Chuck Chris [facility] 1.2.840. 114 [id number] Univers 13:45:00 14:44:46 Visit Hasmukh Etienne 350.1.13.10 ity of [place] [phone] Ar dical NAL 179 [facility] 2021-09-12 2021-09-12 Ancillary AriesFlorence [facility] 1.2.840 .114 [id number] Univers 11:15:00 13:55:27 Visit Hasmukh Etienne 350.1.13.10 ity of [place] [phone] Ar dical NAL 179 [facility] 2021-09-07 2021-09-07 Ancillary Chuck Chris [facility] 1.2.840. 114 [id number] Univers 13:45:00 14:30:00 Visit Hasmukh Etienne 350.1.13.10 ity of [place] [phone] Ar dical NAL 179 [facility] 2021-09-06 2021-09-06 Telephone Isabel [facility] 1.2.840.114 [id number] Univers 00:00:00 00:00:00 Liborio RODRIGUEZ 350.1.13.10 i ty [facility] [place] [phone] Ar dical NAL 044 [facility] 2021-09-05 2021-09-05 Literacy Specialist 2, Adc Lab [facility] 1.2.840.114 [id number] Univers 16:15:00 16:30:00 Visit Liborio Hall 350.1.13.10 [facility] [place] [phone] Ar dical NAL 353 [facility] 2021-09-05 2021-09-05 Outpatient R ISABEL TNANNIKA [facility] [id number] Univers 15:20:00 16:16:29 LIBORIO aranda of [facility] 2021-09-05 2021-09-05 Office Isabel [facility] 1.2.840.114 [id number] Univers 15:20:00 16:16:29 Visit Liborio RODRIGUEZ 350.1.13.10 i ty [facility] [place] [phone] Ar dical NAL 044 [facility] 2021-09-05 2021-09-05 Outpatient R ETIENNE [facility] [id number] Univers 11:00:00 11:55:12 HASMUKH aranda [facility] 2021-09-05 2021-09-05 Ancillary Chuck Chris [facility] 1.2.840. 114 [id number] Univers 11:00:00 11:45:00 Visit Hasmukh Etienne 350.1.13.10 ity of [place] 4[place] [phone] Ar dical NAL 179 [facility] 2021-09-05 2021-09-05 Outpatient R LOWELL [facility] [id number] Univers 11:00:00 11:00:00 [facility] 2021-08-24 2021-08-24 Ancillary Nury Cortez [facility] 1.2. 840.114 [id number] Univers 13:45:00 14:30:00 Visit Hasmukh Etienne 350.1.13.10 ity of [place] 4.[place].2.[place] [phone] Ar dical NAL 179 [facility] 2021-08-22 2021-08-22 Ancillary Chuck Chris [facility] 1.2.840. 114 [id number] Univers 14:30:00 15:15:00 Visit Hasmukh Etienne 350.1.13.10 it[facility] [place] [phone] Ar dical NAL 179 [facility] 2021-08-22 2021-08-22 Outpatient R LOWELL [facility] [id number] Univers 14:30:00 14:30:00 HASMUKH aranda [facility] 2021-08-17 2021-08-17 Ancillary Chuck Chris [facility] 1.2.840. 114 [id number] Univers 09:30:00 10:38:41 Visit Hasmukh Etienne 350.1.13.10 ity of [place] [phone] Ar dical NAL 179 [facility] 2021-08-10 2021-08-10 Ancillary Chuck Chris [facility] 1.2.840. 114 [id number] Univers 09:30:00 10:15:00 Visit Etienne, Hasmukh RODRIGUEZ 350.1.13.10 it[facility] [place] [phone] Ar dical NAL 179 [facility] 2021-08-08 2021-08-08 Literacy Specialist Alejandro, Simi Lab Main [facility] 1.2.8 40.114 [id number] [facility] 14:15:00 14:30:00 Visit Maral Garsia 350.1.13.10 it[place] [facility] [place] [phone] Ar dical NAL 353 [facility] 2021-08-08 2021-08-08 Outpatient R SUN [facility] [id number] [facility] 14:15:00 14:15:00 VINITHA ity of [facility] 2021-08-08 2021-08-08 Ancillary Chuck Chris [facility] 1.2.840. 114 [id number] [facility] 13:00:00 13:45:00 Visit Hasmukh Etienne 350.1.13.10 [facility] [facility] [place] [phone] Ar dical [facility] 179 [facility] 2021-08-08 2021-08-08 Orders Doctor REYES 1.2.840.114 [id number] Univers 00:00:00 00:00:00 Only Unassigned, TOYA 350.1.13.10 ity of [place] [facility] 4.2.7.2.686 Adelso as [phone] [address] 2021-08-06 2021-08-06 Refill Isabel [facility] 1.2.840.114 [id number] Univers 00:00:00 00:00:00 Liborio RODRIGUEZ 350.1.13.10 i ty [facility] [place] [phone] Ar dical NAL 044 [facility] 2021-08-03 2021-08-03 Outpatient R [facility]OWELL [facility] [id number] Univers 11:00:00 11:47:32 HASMUKH itrohan [facility] 2021-08-03 2021-08-03 Outpatient R LOWELL [facility] [id number] Univers 11:00:00 11:47:32 HASMUKH aranda [facility] 2021-08-03 2021-08-03 Ancillary Chuck Chris [facility] 1.2.840. 114 [id number] Univers 11:00:00 11:45:00 Visit Hasmukh Etienne 350.1.13.10 ity of [place] 4[place].2.[place] [phone] Ar dical NAL 179 [facility] 2021-08-03 2021-08-03 Outpatient R [facility]OW[facility]LL [facility] [id number] Univers 11:00:00 11:00:00 HASMUKHJOSE JUAN aranda [facility] 2021-08-01 2021-08-01 Ancillary Halina Leavitt [facility] 1.2.84 0.114 [id number] Univers 11:00:00 11:45:00 Visit Hasmukh Etienne 350.1.13.10 ity of [place] [phone] Ar dical NAL 179 [facility] 2021-08-01 2021-08-01 Outpatient R ETIENNE, [facility] [id number] Univers 11:00:00 11:00:00 HASMUKH [facility] 2021-08-01 2021-08-01 Telephone Isabel [facility] 1..840.114 9 [id number] Univers 00:00:00 00:00:00 Liborio RODRIGUEZ 350.1.13.10 i ty of [place].2.[place] [phone] Ar dical NAL 044 [facility] 2021-07-27 2021-07-27 Ancillary Chuck Chris [facility] 1.2.840. 114 [id number] Univers 11:00:00 11:45:00 Visit Hasmukh Etienne 350.1.13.10 ity of [place] [phone] Ar dical NAL 179 [facility] 2021-07-25 2021-07-25 Ancillary Chuck Chris [facility] 1.2.840. 114 [id number] Univers 11:00:00 12:59:36 Visit Hasmukh Etienne 350.1.13.10 it[place] [facility] 4[place] [phone] Ar dical NAL 179 [facility] 2021-07-24 2021-07-24 Outpatient R JULIANE [facility] [id number] Univers 13:20:00 13:20:00 GAYATHRI ity [facility] 2021-07-17 2021-07-17 Ancillary Halina Leavitt [facility] 1.2.84 0.114 [id number] Univers 15:15:00 17:36:17 Visit Hasmukh Etienne 350.1.13.10 ity of [place] [phone] [facility] 179 [facility] 2021-07-17 2021-07-17 Outpatient R LOWELL [facility] [id number] Univers 15:15:00 17:36:17 HASMUKH aranda [facility] 2021-07-17 2021-07-17 Outpatient R LOWELL [facility] [id number] Univers 15:15:00 17:36:17 HASMUKH aranda [facility] 2021-07-17 2021-07-17 Outpatient R LOWELL [facility] [id number] Univers 15:15:00 15:15:00 HASMUKH rohan [facility] 2021-07-14 2021-07-14 Orders Doctor PULLIAM 1.2.840.114 [id number] Univers 00:00:00 00:00:00 Only Unassigned, TOYA 350.1.13.10 ity of [place] [facility] 4.2.7.2.[phone] [facility] [address] 2021-07-11 2021-07-11 [facility]ill [facility] 1.2.840.114 [id number] Univers 00:00:00 00:00:00 Liborio RODRIGUEZ 350.1.13.10 i ty of [place] [phone] Ar fransiscowv MARY [address] [place] [address] 2021-07-07 2021-07-07 Patient Doctor [facility] 1.2.840.114 [id number] Univers 00:00:00 00:00:00 Secure Msg Unassigned, MULTISPEC 350.1.13.10 ity of [place] [address] [id number] [facility] [place] [address] [facility] 2021-07-05 2021-07-05 Refill [facility] 1.2.840.114 [id number] Univers 00:00:00 00:00:00 Liborio RODRIGUEZ 350.1.13.10 i ty of [place] [phone] Ar fransiscowv MARY [address] [place] [address] 2021-07-05 2021-07-05 [facility] 1.2.840.114 [id number] Univers 00:00:00 00:00:00 Liborio RODRIGUEZ 350.1.13.10 i ty of [place] 4[place].2.[place] [phone] Ar fransisco[address] 2021-07-05 2021-07-05 [facility] 1.2.840.114 [id number] Univers 00:00:00 00:00:00 [facility] 350.1.13.10 ity of [place] 4.2.7.2.686 Adelso as NENO?BLEA [phone] Ar darshana HILARIO [address] [facility] 2021-07-04 2021-07-04 Refindy [facility] 1.2.840.114 [id number] Univers 00:00:00 00:00:00 Liborio RODRIGUEZ 350.1.13.10 i ty of [place] 4[place].2.[place] [phone] Ar dical NAL 044 [facility] 2021-07-03 2021-07-03 Literacy Specialist Alejandro, Simi Lab Main [facility] 1.2.8 40.114 [id number] Univers 14:30:00 14:45:00 Visit Maral Garsia 350.1.13.10 ity of [place] 4[place].2.[place] [id number] Ar dical NAL 353 [facility] 2021-07-03 2021-07-03 Outpatient R SUN [facility] [id number] Univers 14:30:00 14:30:00 MARAL [facility] 2021-07-03 2021-07-03 Orders Doctor REYES 1.2.840.114 [id number] Univers 00:00:00 00:00:00 Only Unassigned, TOYA 350.1.13.10 [facility] 4.2.7.2.686 Ad[place] as [phone] [address] 2021-06-28 2021-06-28 Telephone [facility] 1.2.840.114 9 [id number] Univers 00:00:00 00:00:00 Liborio RODRIGUEZ 350.1.13.10 i ty of [place]2.[place] [phone] Ar dical [facility] 044 [facility] 2021-06-28 2021-06-28 Telephone [facility] 1.2.840.114 [id number] Univers 00:00:00 00:00:00 Liborio RODRIGUEZ 350.1.13.10 i ty of [place].2.[place] [phone] Ar dical NAL 044 [facility] 2021-06-27 2021-06-27 Outpatient R MICHAEL RIZZO [facility] [id number] Univers 16:00:00 17:03:45 MICHAEL RIZZO [facility] 2021-06-27 2021-06-27 Office Yahir [facility] 1.2.840.114 [id number] Univers 16:00:00 17:03:45 Visit [facility] 350.1.13.10 ity of [place] 4.2.7.2.686 Adelso as NENO?BLEA [phone] Ar fransiscojennifer RICH 092 [facility] OFFICE [facility] 2021-06-27 2021-06-27 Outpatient R MICHAEL RIZZO [facility] [id number] Univers 16:00:00 16:00:00 MICHAEL RIZZO ity [facility] 2021-06-26 2021-06-26 [facility] 1.2.840.114 [id number] Univers 00:00:00 00:00:00 Ogkailyn [place] 350.1.13.10 ity of [place] 4[place]7.2.[place] [phone] Ar darshana NAL 044 [facility] 2021-06-26 2021-06-26 Refindy [facility] 1.2.840.114 [id number] Univers 00:00:00 00:00:00 Ogkailyn [place] 350.1.13.10 ity of [place] 4[place].2.[place] [id number] Ar darshana NAL 044 [facility] 2021-06-22 2021-06-22 Out[facility] [id number] Univers 10:06:41 23:59:00 rosi DENNY of [facility] 2021-06-22 2021-06-22 [facility] 1.2.840.114 [id number] Univers 10:06:41 23:59:00 Encounter MARYJANE denny 350.1.13.10 ity of [facility] [place]2.7.2.[place] AT [phone] Ar darshana SEGOVIA 809 [facility] 2021-06-22 2021-06-22 Outpatient R JULIANE [facility] [id number] Univers 10:00:00 10:38:05 GAYATHRIDUSTIN aranda [facility] 2021-06-22 2021-06-22 Office [facility] 1.2.840.114 [id number] Univers 10:00:00 10:38:05 Visit Gayathrikayy [place] 350.1.13.10 ity of [facility] 4.2.7.2.[place] AT [phone] Ar darshana BRIGHTONRohan [address] [place] [address] 2021-06-22 2021-06-22 Outpatient R [facility] [id number] Univers 10:00:00 10:00:00 GAYATHRI [facility] 2021-06-22 2021-06-22 Outpatient R [facility] [id number] Univers 10:00:00 10:00:00 [facility] 2021-06-20 2021-06-20 Telephone [facility] 1..840.114 9 [id number] Univers 00:00:00 00:00:00 Liborio RODRIGUEZ 350.1.13.10 i ty of [facility] 4.[place] [phone] Ar darshana [facility] 231 [facility] 2021-06-19 2021-06-19 Outpatient R EVELINE LUCIO [facility] [id number] Univers 14:00:00 15:06:35 EVELINE LUCIO [facility] 2021-06-19 2021-06-19 Outpatient R EVELINE LUCIO [facility] [id number] Univers 14:00:00 15:06:35 EVELINE LUCIO [facility] 2021-06-19 2021-06-19 Office [facility] 1..840.114 [id number] Univers 14:00:00 15:06:35 Visit Eveline RODRIGUEZ 350.1.13.10 ity [facility] 4.2.7.2.[place] [id number] Ar darshana [address] 2021-06-19 2021-06-19 Telephone [facility] .2.840.114 9 [id number] Univers 00:00:00 00:00:00 Liborio RODRIGUEZ 350.1.13.10 i ty of [place] 632.3594151 Ar dical NAL 044 [facility] 2021-06-18 2021-06-18 Refill D[facility]Peter [facility] 1.2.840.114 [id number] Univers 00:00:00 00:00:00 Liborio RODRIGUEZ 350.1.13.10 i ty [facility] 4.2.[place] [phone] Ar dical NAL 044 [facility] 2021-06-18 2021-06-18 Refill [facility] 1.2.840.114 [id number] Univers 00:00:00 00:00:00 Jaxon TREJO 350.1.13.10 i ty of [facility] 4.[place].7.2.[phone] [facility] [address] 2021-06-16 2021-06-16 [facility] 1.2.840.114 9 [id number] Univers 00:00:00 00:00:00 Liborio RODRIGUEZ 350.1.13.10 i ty of [place] [phone] Ar dicwv NAL 044 [facility] 2021-06-15 2021-06-15 Refindy Quint[facility] 1.2.840.114 [id number] Univers 00:00:00 00:00:00 Ya ROOT 350.1.13.10 it[place] [id number] [facility] AND JORGE [address] [facility] 2021-06-13 2021-06-13 Transition MELANIE Mejia 1.2.840.114 [id number] Univers 00:00:00 00:00:00 of Care Jared VICKERS 350.1.13.10 ity of [place]7.[place].[address] [id number] [facility] [address] 2021-06-09 2021-06-12 Inpatient U DIONIHELEN [facility] [id number] Univers 17:51:00 12:45:00 HOWARD ity of [facility] 2021-06-09 2021-06-12 [facility] 1.2.840.114 [id number] Univers 17:51:00 12:45:00 Encounter Howard RODRIGUEZ 350.1.13.10 ity of [facility] 4[place]2.7.2.[place] [address] [phone] [facility] [address] 2021-06-12 2021-06-12 Patient Doctor REYES 1.2.840.114 [id number] Univers 00:00:00 00:00:00 Secure Msg Unassigned, TOYA 350.1.13.10 ity of [place] [facility] 4.2.7.2.[id number] [facility] [address] 2021-06-07 2021-06-07 Outpatient R [facility] [id number] [id number] Univers 14:50:10 23:59:00 LIBORIO aranda [facility] 2021-06-07 2021-06-07 [facility] 1.2.840.114 [id number] Univers 14:50:10 23:59:00 Encounter Liborio RODRIGUEZ 350.1.13.10 ity of [place].2.[address] [place] [phone] [facility] [address] 2021-06-07 2021-06-07 Literacy Specialist Alejandro, Simi Lab Main [facility] 1.2.8 40.114 [id number] Univers 15:15:00 15:30:00 Visit Liboiro Hall 350.1.13.10 ity of [place] [phone] Ar dical NAL 353 [facility] 2021-06-06 2021-06-06 Office [facility] 1.2.840.114 [id number] Univers 11:00:00 12:16:06 Visit Liborio RODRIGUEZ 350.1.13.10 i ty of [place] [phone] Ar dical NAL 044 [facility] 2021-06-06 2021-06-06 [facility] [id number] Univers 11:00:00 12:16:06 LIBORIO aranda [facility] 2021-06-06 2021-06-06 Outpatient R ISABEL [facility] [id number] Univers 11:00:00 12:16:06 LIBORIO rohan [facility] 2021-06-06 2021-06-06 Outpatient R ISABEL [facility] [id number] Univers 11:00:00 12:16:06 LIBORIO aranda [facility] 2021-06-06 2021-06-06 Outpatient R ISABEL [facility] [id number] Univers 11:00:00 11:00:00 LIBORIO rohan [facility] 2021-06-06 2021-06-06 Outpatient R ISABEL [facility] [id number] Univers 11:00:00 11:00:00 LIBORIO aranda [facility] 2021-06-06 2021-06-06 Outpatient R ISABEL [facility] [id number] Univers 11:00:00 11:00:00 LIBORIO [facility] 2021-06-01 2021-06-01 [facility] 1.2.840.114 [id number] Univers 00:00:00 00:00:00 Secure Msg Liborio RODRIGUEZ 350.1.13.10 ity [facility] [id number] [phone] Ar dical NAL [address] [place] [address] 2021-05-31 2021-05-31 Outpatient R [facility] [id number] Univers 15:00:00 16:12:40 LIBORIO [facility] 2021-05-31 2021-05-31 Office [facility] .2.840.114 [id number] Univers 15:00:00 16:12:40 Visit Liborio RODRIGUEZ 350.1.13.10 i ty [facility] [id number] [phone] Ar dical NAL [address] [place] [address] 2021-05-31 2021-05-31 Outpatient R [facility] [id number] Univers 15:00:00 15:00:00 PETER ity of [facility] 2021-05-18 2021-05-18 [facility] 1.2.840.114 [id number] Univers 00:00:00 00:00:00 Liborio RODRIGUEZ 350.1.13.10 i ty of [place] [phone] Ar dical NAL [address] [place] [address] 2021-05-18 2021-05-18 [facility] 1.2.840.114 [id number] Univers 00:00:00 00:00:00 Liborio RODRIGUEZ 350.1.13.10 i ty [place] [phone] [address] 2021-05-18 2021-05-18 [facility] 1.2.840.114 [id number] Univers 00:00:00 00:00:00 Liborio RODRIGUEZ 350.1.13.10 i ty [place] [id number] [address] 2021-05-18 2021-05-18 Reggie Quint[facility] 1.2.840.114 [id number] Univers 00:00:00 00:00:00 Ya MULTISPEC 350.1.13.10 [id number] [phone] [address] [facility] 2021-05-18 2021-05-18 Reggie Quintana [facility] 1.2.840.114 [id number] Univers 00:00:00 00:00:00 Kierrawan MULTISPEC 350.1.13.10 [place] [phone] [facility] AND [address] [facility] 2021-05-17 2021-05-17 Literacy Specialist Alejandro, Sim[facility] 1.2.8 40.114 [id number] Univers 14:15:00 14:30:00 Visit Maral Garsia 350.1.13.10 ity of [place] [phone] Ar dical [facility] [address] [facility] 2021-05-17 2021-05-17 Outpatient R [facility] [id number] Univers 14:15:00 14:15:00 MARAL ity [facility] 2021-05-17 2021-05-17 Orders Doctor REYES 1.2.840.114 [id number] Univers 00:00:00 00:00:00 Only Unassigned, TOYA 350.1.13.10 ity of [place] [facility] 4.2.7.2.[phone] [facility] [address] 2021-05-16 2021-05-16 Office [facility] 1.2.840.114 [id number] Univers 15:00:00 16:55:16 Visit Jaxon TREJO 350.1.13.10 i ty of [facility] 4.[place].7.2.[address] [place] [address] [phone] [facility] [address] 2021-05-16 2021-05-16 Outpatient R [facility] [id number] Univers 15:00:00 16:55:16 JAXON aranda [facility] 2021-05-16 2021-05-16 Outpatient R [facility] [id number] Univers 15:00:00 15:00:00 JAXON aranda [facility] 2021-05-12 2021-05-12 Transition MELANIE Ty 1.2.840.114 [id number] Univers 00:00:00 00:00:00 of Care Nydia RANCHO 350.1.13.10 it y of [place].2.[address] [place] [phone] [facility] [address] 2021-05-09 2021-05-11 Inpatient X [facility] [id number] Univers 14:54:00 15:04:00 FREDO aranda of [facility] 2021-05-09 2021-05-11 [facility] Domitila Melendrez [facility] 1.2.8 40.114 [id number] Univers 14:54:00 15:04:00 Encounter Amos Fredo RODRIGUEZ 350.1.13.10 ity of [place] [phone] [facility] [address] 2021-05-05 2021-05-05 [facility] 1.2.840.114 [id number] Univers 00:00:00 00:00:00 Secure Msg Liborio RODRIGUEZ 350.1.13.10 ity of [place] [phone] Ar dicwv NAL 044 [facility] 2021-04-13 2021-04-13 Refindy [facility] 1.2.840.114 [id number] 96 Univers 00:00:00 00:00:00 Ya ARANDAFLORENCIO 350.1.13.10 i ty of [place] [phone] [facility] 085 [facility] 2021-04-04 2021-04-04 Refill [facility]hold[facility] holdenvilledharmeshPeter [facility] 1.2.840.114 [id number] [id number] Univers 00:00:00 00:00:00 Liborio RODRIGUEZ 350.1.13.10 i ty of [place] [phone] Ar dicwv NAL 044 [facility] 2021-03-31 2021-03-31 [facility] 1.2.840.114 [id number] Univers 00:00:00 00:00:00 Jaxon TREJO 350.1.13.10 i ty of [facility] 4.[place].7.2.[phone] [facility] [address] 2021-03-21 2021-03-21 Reggie BurtonNEW [facility] 1.2.840.114 [id number] Univers 00:00:00 00:00:00 Shakeel RAMÍREZ 350.1.13.10 it y of MEDICINE 4.2.7.2.686 [place] as CLINIC - [phone] [address] 2021-03-14 2021-03-14 Refill [facility] 1.2.840.114 [id number] Univers 00:00:00 00:00:00 Jaxon TREJO 350.1.13.10 i ty of [facility] 4.[place].7.2.[id number] [facility] [address] 2021-03-07 2021-03-07 [facility] ElidiadeaPeter [facility] 1.2.840.114 [id number] [id number] Univers 00:00:00 00:00:00 Liborio RODRIGUEZ 350.1.13.10 i ty of [place] [phone] Ar dical NAL 044 [facility] 2021-03-02 2021-03-02 Laboratory Only, Adc Pob2 Test [facility] 1.2 .840.114 [id number] Univers 15:45:00 15:45:00 Only Liborio Hall 350.1.13.10 ity of [place] [phone] Me dical NAL 225 [facility] 2021-03-02 2021-03-02 [facility] [id number] Univers 11:00:00 12:15:26 LIBORIO [facility] 2021-03-02 2021-03-02 Outpatient [facility] 1034 [id number] Univers 11:00:00 11:00:00 LIBORIO [facility] 2021-03-02 2021-03-02 Outpatient [facility] 1034 [id number] Univers 11:00:00 11:00:00 LIBORIO [facility] 2021-03-02 2021-03-02 Orders Doctor PULLIAM 1..840.114 [id number] Univers 00:00:00 00:00:00 Only UnassignedTOYA 350.1.13.10 ity of [facility] 4.2.7.2.[phone] [facility] [address] 2021-02-15 2021-02-15 Office [facility] 1.2.840.114 [id number] Univers 13:30:00 13:45:00 Visit Jaxon TREJO 350.1.13.10 i ty of [facility] [place].2.[place] [phone] [address] 2021-02-15 2021-02-15 Outpatient R DANILO [facility] [id number] Univers 13:30:00 13:30:00 JAXON aranda [facility] 2021-02-15 2021-02-15 Outpatient R [facility] [id number] Univers 13:30:00 13:30:00 JAXON aranda [facility] 2021-02-13 2021-02-13 Literacy Specialist Alejandro, Adc Lab Main [facility] 1.2.8 40.114 [id number] Univers 13:40:33 13:55:33 Visit Sun [place] ARANDAFLORENCIO 350.1.13.10 ity [facility] [place] [phone] Ar dical NAL 353 [facility] 2021-02-13 2021-02-13 Outpatient R G[facility]ASHELTERING [facility] [id number] Univers 13:45:00 13:45:00 MARAL aranda [facility] 2021-02-13 2021-02-13 Reggie BurtonNEW [facility] 1.2.840.114 [id number] Univers 00:00:00 00:00:00 Shakeel PRIMARY 350.1.13.10 it y [place] 4[place] [phone] Ar dical [address] 2021-02-03 2021-02-03 Outpatient R YA QUINTANA [facility] 10 [id number] Univers 11:30:00 12:19:04 YA QUINTANA i ty of [facility] 2021-02-03 2021-02-03 Office BaironNEW [facility]RISE [facility] 1.2.840.114 [id number] Univers 11:15:56 12:19:04 Visit Ya RODRIGUEZ 350.1.13.10 i ty of [place] [phone] Ar dical NAL 085 [facility] 2021-02-02 2021-02-02 Literacy Specialist 2, Adc Lab [facility] 1.2.840.114 [id number] Univers 14:19:44 16:42:57 Visit Liborio Hall 350.1.13.10 ity [facility] 4[place] [phone] Ar dical NAL 353 [facility] 2021-02-02 2021-02-02 Literacy Specialist 2, Adc Lab [facility] 1.2.840.114 [id number] Univers 14:19:44 14:34:44 Visit Liborio Hall 350.1.13.10 ity [facility] 4[place] [id number] [facility] 353 [facility] 2021-02-02 2021-02-02 Outpatient [facility] 1036 [id number] Univers 14:30:00 14:30:00 LIBORIO rohan [facility] 2021-02-02 2021-02-02 Outpatient R [facility] [id number] [id number] Univers 13:20:00 14:20:07 [facility] 2021-02-02 2021-02-02 Office [facility] 1.2.840.114 [id number] Univers 13:05:13 14:20:07 Visit Liborio RODRIGUEZ 350.1.13.10 i ty of [place] [phone] [facility] 044 [facility] 2021-02-02 2021-02-02 Telephone Catrett, [facility] 1.2.840.114 [id number] Univers 00:00:00 00:00:00 [facility] 350.1.13.10 i ty of [facility] [place]2.7.2.[place] [phone] [address] 2021-02-01 2021-02-01 Outpatient R [facility] [id number] Univers 09:03:31 23:59:00 AUBRIE [facility] 2021-02-01 2021-02-01 Outpatient R [facility] [id number] Univers 09:03:31 23:59:00 AUBRIE ity of [facility] 2021-02-01 2021-02-01 [facility] Nik, [facility] 1.2.840.114 [id number] Univers 09:00:00 23:59:00 Encounter Aubrie [facility] 350.1.13.10 ity of CLINICS 4[place] [place] [id number] [facility] [address] 2021-01-23 2021-01-23 Outpatient R [facility] [id number] [id number] Univers 15:24:58 23:59:00 LUZMA leandery of [facility] 2021-01-23 2021-01-23 [facility] 1.2.840.114 [id number] Univers 15:15:00 23:59:00 Encounter Luzma RODRIGUEZ 350.1.13.10 ity of [place] [address] [id number] [facility] [address] 2021-01-23 2021-01-23 Outpatient R [facility] 1036 [id number] Univers 14:20:00 16:21:39 LUZMA tabory [facility] 2021-01-23 2021-01-23 Office [facility] 1.2.840.114 [id number] Univers 14:19:39 16:21:39 Visit Luzma RODRIGUEZ 350.1.13.10 ity of [place] [phone] Ar dical [facility] [address] BUILDING 2021-01-23 2021-01-23 Orders Doctor REYES 1.2.840.114 [id number] Univers 00:00:00 00:00:00 Only Unassigned, TOYA 350.1.13.10 ity of [place] [facility] 4.2.7.2.[id number] [facility] [address] 2021-01-15 2021-01-15 Emergency X CHARLEY K [facility] ERT [id number] Univers 15:11:00 19:02:00 ity of [facility] 2021-01-15 2021-01-15 Emergency Charley, Jo-Ann [facility] 1.2.840.114 [id number] Univers 15:11:00 19:02:00 Dianna RODRIGUEZ 350.1.13.10 i ty of [place] [phone] [place] [address] 2021-01-09 2021-01-09 Emergency X [facility]HEMYNEW [facility] ERT [id number] Univers 09:42:00 11:39:00 ELSY ity [facility] 2021-01-09 2021-01-09 Emergency NohemyNEW [facility]RISE [facility] 1.2.840.114 [id number] Univers 09:42:00 11:39:00 Elsy RODRIGUEZ 350.1.13.10 ity of [place] [id number] [facility] [address] 2020-12-20 2020-12-20 Outpatient R [facility] [id number] Univers 11:15:00 11:15:00 JAXON aranda [facility] 2020-12-20 2020-12-20 Office [facility] 1.2.840.114 [id number] Univers 10:07:43 10:22:43 Visit Jaxon TREJO 350.1.13.10 i ty of [facility] 4.2.7.2.[id number] [facility] [address] 2020-12-19 2020-12-19 Literacy Specialist Alejandro, Simi Lab Main [facility] 1.2.8 40.114 [id number] Univers 14:04:03 14:19:03 Visit Maral Garsia 350.1.13.10 ity [facility] [place].2.[place] [phone] Ar dicsaint alphonsus eagle 353 [facility] 2020-12-19 2020-12-19 Outpatient R SUN [facility] [id number] Univers 14:15:00 14:15:00 MARAL aranda [facility] 2020-12-19 2020-12-19 Orders Doctor PULLIAM 1.2.840.114 [id number] Univers 00:00:00 00:00:00 Only Unassigned, TOYA 350.1.13.10 ity of [place] [facility] 4.2.7.2.686 [place] as [phone] [place] [address] 2020-12-18 2020-12-18 Refill Bonilla [facility] 1.2.840.114 [id number] Univers 00:00:00 00:00:00 Art MULTISPEC 350.1.13.10 ity of [place] [phone] [address] DIABETES CLINIC 2020-12-18 2020-12-18 Refill Bonilla [facility] 1.2.840.114 [id number] 41 Univers 00:00:00 00:00:00 Art MULTISPEC 350.1.13.10 ity of [place] [id number] [address] DIABETES CLINIC 2020-12-08 2020-12-08 Ancillary Therapist, Simi Pulmonary [facility] 1.2.840.114 [id number] Univers 10:23:30 11:23:30 Visit Art Crystal [place] 350.1. 13.10 it[place] of [place] [phone] Ar darshana [facility] [address] Building 2020-12-08 2020-12-08 Literacy Specialist Lab, Mao - Remington [facility] 1.2.840.1 14 [id number] Univers 08:46:42 09:01:42 Visit 5211game 350.1.13.10 ity of [place] 4.2.7.2.686 Adelso as Neno?Blea [phone] Ar dical sharadey [address] [facility] Building 2020-12-08 2020-12-08 Outpatient R [facility] [id number] Univers 08:45:00 08:45:00 ity of [facility] 2020-12-06 2020-12-06 Ancillary Therapist, Simi Pulmonary [facility] 1.2.840.114 [id number] Univers 10:31:58 15:48:59 Visit Art Crystal [place] 350.1. 13.10 it[place] [phone] [facility] 296 [facility] 2020-12-06 2020-12-06 Outpatient R SATNAM [facility] [id number] Univers 14:30:00 14:59:05 [facility] 2020-12-06 2020-12-06 Office [facility]NEW [facility] 1.2.840.114 [id number] 09 Univers 14:17:11 14:59:05 Visit [facility] 350.1.13.10 it y of [place] 4.2.7.2.686 Adelso as NENO?BLEA [phone] [facility] 220 [facility] OFFICE [facility] 2020-12-06 2020-12-06 Outpatient R SATNAM [facility] [id number] Univers 14:30:00 14:30:00 [facility] 2020-12-06 2020-12-06 Outpatient R RAMSEYCLARISSE [facility] [id number] Univers 10:00:00 10:00:00 [facility] aranda o f [facility] 2020-12-01 2020-12-01 Ancillary Therapist, [facility] Pulmonary [facility] 1.2.840.114 [id number] Univers 10:32:58 11:17:49 Visit Art Crystaldarrion [place] 350.1. 13.10 ity [facility] [place].2.[place] [phone] [facility] 296 [facility] 2020-12-01 2020-12-01 Refill Inge [facility] 1.2.370.315 [id number] Univers 00:00:00 00:00:00 Ramon S PRIMARY 350.1.13.10 i ty [place] [phone] [address] 2020-11-29 2020-11-29 Ancillary Therapist, [facility] Pulmonary [facility] 1.2.840.114 [id number] Univers 10:28:44 15:02:28 Visit Art Crystal 350.1. 13.10 it[place] of [place] [phone] Ar dical nal 296 [facility] 2020-11-22 2020-11-22 Ancillary Therapist, Simi Gandhi [facility] 1.2.840.114 [id number] [facility] 11:05:11 13:42:42 Visit Art Crystal 350.1. 13.10 it[place] of [place] [phone] Ar dical nal 296 [facility] 2020-11-20 2020-11-20 [facility] 1.2.840.114 [id number] Univers 00:00:00 00:00:00 Jaxon TREJO 350.1.13.10 i ty of [facility] [place].2.[phone] [address] 2020-11-20 2020-11-20 [facility] 1.2.840.114 [id number] 76 Univers 00:00:00 00:00:00 Jaxon SMITHY 350.1.13.10 i ty of [facility] [place].2.[place] 303.8294348 [address] 2020-11-19 2020-11-19 [facility] 1.2.840.114 [id number] Univers 00:00:00 00:00:00 Jaxon SMITHY 350.1.13.10 i ty of [place].2.[id number] [address] 2020-11-19 2020-11-19 Reggie BurtonNEW [facility]RISE [facility] 1.2.840.114 [id number] Univers 00:00:00 00:00:00 Shakeel PRIMARY 350.1.13.10 it y [place] 178.3567762 Ar dical [address] 2020-11-19 2020-11-19 [facility] DaniloRanken [facility] 1.2.840.[id number] [place] [address] 00:00:00 00:00:00 Jaxon NEIL 350.1.13.10 i ty of [place] 4.2.7.2.[id number] [facility] [address] 2020-11-17 2020-11-17 Ancillary Therapist, [facility] Pulmonary [facility] 1.2.840.114 [id number] [facility] 10:21:38 11:21:38 Visit Art Crystal 350.1. 13.10 [place] [phone] Ar dical nal 296 [facility] 2020-11-10 2020-11-10 Ancillary Therapist, [facility] Pulmonary [facility] 1.2.840.114 [id number] [facility] 10:19:13 13:22:42 Visit Art Crystal 350.1. 13.10 it[place] of [place] [phone] Ar dicsaint alphonsus eagle 296 [facility] 2020-11-08 2020-11-08 Office [facility] 1.2.840.114 [id number] [facility] 08:58:37 11:43:57 Visit Liborio Rodriguez 350.1.13.10 i ty [place] [phone] Ar dicsaint alphonsus eagle 044 [facility] 2020-11-08 2020-11-08 Office [facility] 1.2.840.114 [id number] [facility] 08:58:37 11:43:57 Visit Liborio Rodriguez 350.1.13.10 i ty [place] [phone] Ar dicsaint alphonsus eagle 044 [facility] 2020-11-08 2020-11-08 Ancillary Therapist, [facility] Pulmonary [facility] 1.2.840.114 [id number] [facility] 10:29:32 11:43:37 Visit Art Crystal 350.1. 13.10 [place] [phone] Ar dical nal 296 [facility] 2020-11-08 2020-11-08 Office [facility] 1.2.840.114 [id number] Univers 10:08:04 10:08:11 Visit Liborio Rodriguez 350.1.13.10 i ty [place] [phone] Ar dical nal 044 [facility] 2020-11-08 2020-11-08 Office [facility] 1.2.840.114 [id number] Univers 10:08:04 10:08:11 Visit Liborio Rodriguez 350.1.13.10 i ty [place] [phone] Ar fransiscosaint alphonsus eagle 044 [facility] 2020-11-08 2020-11-08 Outpatient R ISABEL [facility] 1034 [id number] Univers 09:00:00 09:00:00 LIBORIO aranda [facility] 2020-11-04 2020-11-04 Outpatient R ELIZABET [facility] [id number] Univers 12:00:00 12:00:00 SAM rohan [facility] 2020-11-04 2020-11-04 Literacy Specialist Simi Allen Lab Main [facility] 1.2.8 40.114 [id number] Univers 11:11:44 11:26:44 Visit Sam Bradley 350.1.13.10 [place] [phone] Ar dicwv nal 353 [facility] 2020-11-04 2020-11-04 Literacy Specialist Simi Allen Lab Main [facility] 1.2.8 40.114 [id number] Univers 11:11:44 11:26:44 Visit Sam Bradley 350.1.13.10 it[place] of [place].2.[place] [phone] Ar dical nal 353 [facility] 2020-11-04 2020-11-04 Ancillary Therapist, [facility] Pulmonary [facility] 1.2.840.114 [id number] Univers 09:52:53 10:52:53 Visit Art Crystal Jayden Rodriguez 350.1. 13.10 [place] [phone] Ar dicsaint alphonsus eagle 296 [facility] 2020-11-04 2020-11-04 Outpatient R BONILLA [facility] [id number] Univers 10:00:00 10:00:00 MAGDALENAAMMED ity o f [facility] 2020-11-04 2020-11-04 Orders Doctor REYES 1.2.840.114 [id number] Univers 00:00:00 00:00:00 Only Unassigned, TOYA 350.1.13.10 ity of [place] [facility] 4.2.7.2.[phone] [facility] [address] 2020-11-04 2020-11-04 Orders Doctor RYEES 1.2.840.114 [id number] Univers 00:00:00 00:00:00 Only Unassigned, TOYA 350.1.13.10 ity of [place] [facility] 4.2.7.2.[phone] [facility] [address] 2020-11-03 2020-11-03 [facility] 1.2.840.114 [id number] Univers 00:00:00 00:00:00 (Out) , [facility] 350.1.13.10 i ty of CLINICS [place].[address] [phone] [facility] [address] 2020-11-01 2020-11-01 Ancillary Therapist, Adc Pulmonary [facility] 1.2.840.114 [id number] Univers 10:07:19 11:07:19 Visit Art Crystal Jayden Rodriguez 350.1. 13.10 [place] [phone] [facility] 296 [facility] 2020-10-28 2020-10-28 Telephone Kenneth [facility] 1.2.801.790 [id number] Univers 00:00:00 00:00:00 Summer Rodriguez 350.1.13.10 [place] [phone] Ar dical nal 296 [facility] 2020-10-25 2020-10-25 Ancillary Therapist, Adc Pulmonary [facility] 1.2.840.114 [id number] [facility] 10:08:08 13:18:39 Visit BonillaSajielidia Rodriguez 350.1. 13.10 [place] [phone] Ar dical nal 296 [facility] 2020-10-21 2020-10-21 Literacy Specialist Alejandro, [facility] Lab Main [facility] 1.2.8 40.114 [id number] Univers 12:38:49 12:53:49 Visit Liborio Hall 350.1.13.10 ity of [place] [phone] Ar dicwv nal 353 [facility] 2020-10-21 2020-10-21 Office [facility] 1.2.840.114 [id number] [facility] 10:31:03 12:29:56 Visit Liborio Rodriguez 350.1.13.10 i ty [place] [phone] [facility] 044 [facility] 2020-10-21 2020-10-21 Outpatient R ISABEL [facility] 1034 [id number] Univers 10:40:00 10:40:00 LIBORIO aranda of [facility] 2020-10-21 2020-10-21 Refill [facility]NEW [facility] 1.2.840.114 [id number] Univers 00:00:00 00:00:00 Shakeel PRIMARY 350.1.13.10 it y [place] [phone] [facility] [address] 2020-10-21 2020-10-21 Refill IsabelNEW [facility] 1.2.840.114 [id number] Univers 00:00:00 00:00:00 Liborio Rodriguez 350.1.13.10 i [place] [phone] Ar dical nal 044 [facility] 2020-10-21 2020-10-21 Refill [facility] 1.2.840.114 [id number] Univers 00:00:00 00:00:00 Shakeel FAMILY 350.1.13.10 it y of MEDICINE 4.2.7.2.686 [place]el[place] as CLINIC - [phone] [address] 2020-10-21 2020-10-21 Refill [facility]NEW [facility] 1.2.840.114 [id number] Univers 00:00:00 00:00:00 Shakeel PRIMARY 350.1.13.10 [place] [phone] Ar dical [address] 2020-10-21 2020-10-21 Refill Isabel [facility] 1.2.840.114 [id number] Univers 00:00:00 00:00:00 Liborio Rodriguez 350.1.13.10 [place] [phone] Ar dical nal 044 [facility] 2020-10-18 2020-10-19 Ancillary Therapist, Adc Pulmonary [facility] 1.2.840.114 [id number] Univers 13:00:21 07:46:33 Visit Art [place] 350.1. 13.10 [place] [phone] Ar dical nal 296 [facility] 2020-10-18 2020-10-18 Outpatient R BONILLA [facility] [id number] Univers 13:00:00 13:00:00 ART funez [facility] 2020-10-18 2020-10-18 Orders Doctor PULLIAM 1.2.840.114 [id number] Univers 00:00:00 00:00:00 Only Unassigned, TOYA 350.1.13.10 ity of [place] [facility] 4.2.7.2.686 [place] as [phone] [address] 2020-10-17 2020-10-17 Pre Visit Tim [facility] 1.2.428.118 [id number] Univers 00:00:00 00:00:00 Outreach Shakeel Rodriguez 350.1.13.10 [place] [phone] Ar dical nal 044 [facility] 2020-10-12 2020-10-12 Outpatient R DADA SANDHU [facility] [id number] Univers 15:00:00 15:00:00 ity of [facility] 2020-10-12 2020-10-12 Telephone [place], UN[facility]ERSIT 1.2.840.114 [id number] Univers 00:00:00 00:00:00 Nephrology Y HEALTH 350.1.13.10 ity of CL[place]ICS 4[place].2.[address] [place] [phone] [facility] [address] 2020-10-10 2020-10-10 Literacy Specialist Alejandro, Simi Lab Main [facility] 1.2.8 40.114 [id number] Univers 10:13:27 10:28:27 Visit Shakeel Burton 350.1.13.10 it[place] of [place] [phone] Ar dicsaint alphonsus eagle 353 [facility] 2020-10-10 2020-10-10 Outpatient R TIM [facility] [id number] Univers 10:00:00 10:00:00 SHAKEEL itrohan [facility] 2020-10-05 2020-10-05 Patient Doctor REYES 1.2.840.114 [id number] Univers 00:00:00 00:00:00 Secure Msg Unassigned, TOYA 350.1.13.10 ity of [place] [facility] 4.2.7.2.[phone] [facility] [address] 2020-10-05 2020-10-05 Telephone Juan, NILDA 1.2.840.114 [id number] Univers 00:00:00 00:00:00 Mac Y HEALTH 350.1.13.10 ity of [place] CLINICS [place]2.7.2.[address] [place] [phone] [facility] [address] 2020-09-29 2020-09-29 Literacy Specialist Draw, Clc-Bls Lab [facility] 1.2.8 40.114 [id number] Univers 16:38:25 16:53:25 Visit Ivelisse Ho 350.1.13.10 ity [facility] 4.2.7.2.686 Textata bowen [place] [phone] [facility] [address] 2020-09-29 2020-09-29 Outpatient Ab HO [facility] [id number] Univers 15:00:00 15:00:00 [facility] 2020-09-29 2020-09-29 [facility] [id number] Univers 15:00:00 15:00:00 [facility] 2020-09-27 2020-09-27 Outpatient Ab HO [facility] [id number] Univers 11:00:00 11:00:00 [facility] 2020-09-27 2020-09-27 Outpatient Ab HO [facility] [id number] Univers 11:00:00 11:00:00 [facility] 2020-09-25 2020-09-25 Telephone Tim [facility] 1.2.748.079 [id number] Univers 00:00:00 00:00:00 Shakeel RAMÍREZ 350.1.13.10 it y of MEDICINE 4.2.7.2.686 [place] CLINIC - [phone] [address] 2020-09-21 2020-09-21 Office [facility] 1.2.840.114 [id number] Univers 10:53:17 11:08:17 Visit Jaxon TREJO 350.1.13.10 i ty of [place] 4[place].7.2.[phone] [facility] [address] 2020-09-21 2020-09-21 Outpatient R DANILO [facility] [id number] Univers 11:00:00 11:00:00 JAXON aranda [facility] 2020-09-02 2020-09-02 [facility] 1.2.840.114 [id number] Univers 00:00:00 00:00:00 Jaxon TREJO 350.1.13.10 i ty of [place] 4[place].7.2.[id number] [facility] [address] 2020-08-29 2020-08-29 Office Chan, [facility] 1.2.919.441 [id number] 8395 Univers 09:06:54 10:22:12 Visit Fady Madrigal 350.1.13.10 ity of [place]ATIONAL 4.2.7.2.686 [place] BANK [phone] [facility]. [address] 2020-08-29 2020-08-29 Office [facility] 1.2.615.983 [id number] [facility] 09:06:54 10:22:12 Visit Fady Madrigal 350.1.13.10 ity of [place]ATIONAL 4.2.7.2.686 [place] BANK [phone] [facility]. [address] 2020-08-29 2020-08-29 Outpatient R CHAN [facility] [id number] Univers 09:00:00 09:00:00 FADY leandery [facility] 2020-08-29 2020-08-29 [facility] 1.2.840.114 [id number] Univers 00:00:00 00:00:00 Jaxon SMITHY 350.1.13.10 i ty of [facility] [place].2.[place] [phone] [address] 2020-08-24 2020-08-24 Literacy Specialist Alejandro, Simi Lab Main [facility] 1.2.8 40.114 [id number] Univers 11:42:16 11:57:16 Visit Shakeel Burton 350.1.13.10 it[place] [phone] Ar dical [facility] 353 [facility] 2020-08-24 2020-08-24 Outpatient R TIM [facility] [id number] Univers 11:45:00 11:45:00 SHAKEEL aranda [facility] 2020-08-20 2020-08-20 [facility] 1.2.840.114 [id number] 81 Univers 00:00:00 00:00:00 Lisandra PRIMARY 350.1.13.10 it y of [place].2.[place] [phone] Ar dical [address] 2020-08-17 2020-08-17 [facility] 1.2.840.114 [id number] Univers 00:00:00 00:00:00 Jaxontessy ROSETANY 350.1.13.10 i ty of [facility] 4.2.7.2.[id number] [facility] [address] 2020-08-15 2020-08-15 Refindy [facility] 1.2.840.114 [id number] 82 Univers 00:00:00 00:00:00 Shakeel PRIMARY 350.1.13.10 it y of [place] 4[place].2.[place] [phone] [facility] [address] 2020-08-15 2020-08-15 [facility] 1.2.840.114 [id number] Univers 00:00:00 00:00:00 Jaxon TREJO 350.1.13.10 i ty of [facility] 4.2.7.2.[phone] [facility] [address] 2020-08-08 2020-08-08 Reggie [facility]NEW [facility] 1.2.840.114 [id number] 61 Univers 00:00:00 00:00:00 Shakeel FAMILY 350.1.13.10 it y of MEDICINE 4.2.7.2.686 [place] CLINIC - [phone] [facility] 311 [facility] 2020-08-06 2020-08-06 Orders Doctor REYES 1.2.840.114 [id number] Univers 00:00:00 00:00:00 Only Unassigned, TOYA 350.1.13.10 ity of [place] [facility] 4.2.7.2.[phone] [facility] [address] 2020-08-05 2020-08-05 Outpatient R VACA [facility] [id number] Univers 09:30:00 09:30:00 LEXI aranda [facility] 2020-08-04 2020-08-04 Office Bairon [facility] 1.2.840.114 [id number] Univers 11:20:54 11:52:00 Visit Ya Rodriguez 350.1.13.10 i ty [place] [phone] Me dical nal 085 [facility] 2020-08-04 2020-08-04 Outpatient R YA QUINTANA [facility] [id number] Univers 11:30:00 11:30:00 YA QUINTANA i ty of [facility] 2020-08-02 2020-08-02 Refindy [facility]NEW [facility] 1.2.840.114 [id number] Univers 00:00:00 00:00:00 Shakeel RAMÍREZ 350.1.13.10 it of [facility] 4.2.7.2.686 [place] CLINIC - [phone] [address] 2020-07-29 2020-07-29 Outpatient [facility] [id number] Univers 12:30:00 12:30:00 JAXON aranda [facility] 2020-07-29 2020-07-29 Literacy Specialist Alejandro, Adc Lab Main [facility] 1.2.8 40.114 [id number] Univers 11:02:03 11:17:03 Visit Jaxon Carrasco 350.1.13.10 it[place] [phone] Me dical nal 353 [facility] 2020-07-29 2020-07-29 Telephone [facility] 1.2.817.691 [id number] Univers 00:00:00 00:00:00 Jaxon TREJO 350.1.13.10 i ty of [facility] 4.2.7.2.[place] [phone] [place] [address] 2020-07-27 2020-07-27 Outpatient R DANILO [facility] [id number] Univers 11:00:00 11:00:00 JAXON ity [facility] 2020-07-27 2020-07-27 Office [facility] 1.2.840.114 [id number] Univers 10:30:35 10:45:35 Visit Jaxontessy ROSETANY 350.1.13.10 i ty of [facility] 4.2.7.2.[phone] [facility] [address] 2020-07-22 2020-07-22 Orders Doctor REYES 1.2.840.114 [id number] Univers 00:00:00 00:00:00 Only Unassigned, TOYA 350.1.13.10 ity of [place] [facility] 4.2.7.2.[phone] [facility] [address] 2020-07-12 2020-07-12 Orders Doctor REYES 1.2.840.114 [id number] Univers 00:00:00 00:00:00 Only Unassigned, TOYA 350.1.13.10 ity of [place] [facility] 4.2.7.2.[id number] [facility] [address] 2020-07-05 2020-07-05 Outpatient R MIKEY [facility] [id number] Univers 09:30:00 09:30:00 LEXI aranda [facility] 2020-07-01 2020-07-01 Orders Doctor REYES 1.2.840.114 [id number] Univers 00:00:00 00:00:00 Only Unassigned, TOYA 350.1.13.10 ity of [place] [facility] 4.2.7.2.[phone] [facility] [address] 2020-06-29 2020-06-29 Reggie Barreto [facility] 1.2.840.114 [id number] Univers 00:00:00 00:00:00 Bartolo PRIMARY 350.1.13.10 it y of CARE 4.2.7.2.686 [place] MENSAH [phone] Ar dical [address] 2020-06-18 2020-06-18 Patient Tim [facility] 1.2.840.114 [id number] Univers 00:00:00 00:00:00 Secure Msg Orlandona FAMILY 350.1.13.10 ity of MEDICINE 4.2.7.2.686 [place] CLINIC - [phone] [address] 2020-06-17 2020-06-17 Orders Doctor REYES 1.2.840.114 [id number] Univers 00:00:00 00:00:00 Only Unassigned, TOYA 350.1.13.10 ity of [place] [facility] 4.2.7.2.[phone] [facility] [address] 2020-06-15 2020-06-15 Literacy Special[address] [facility] 1.2.840.114 [id number] Univers 10:32:30 10:41:36 [facility] 350.1.13.10 ity of CLINICS 4[place]2.[place].[address] [place] [phone] [facility] [address] 2020-06-15 2020-06-15 Office Hattie [facility] 1.2.816.004 [id number] 0282 Univers 09:26:13 09:56:13 Visit [facility] 350.1.13.10 ity of CLINICS 4[place]2.[place].[address] [phone] [facility] [address] 2020-06-15 2020-06-15 Outpatient R HATTIE [facility] [id number] Univers 09:30:00 09:30:00 [facility] 2020-06-15 2020-06-15 Outpatient R HATTIE [facility] [id number] Univers 09:30:00 09:30:00 [facility] 2020-06-14 2020-06-14 Outpatient R MIKEY [facility] [id number] Univers 09:00:00 09:00:00 LEXI [facility] 2020-06-14 2020-06-14 Reggie [facility] 1.2.840.114 [id number] Univers 00:00:00 00:00:00 Shakeel FAMILY 350.1.13.10 it y of MEDICINE 4.2.7.2.686 [place] CLINIC - [phone] [facility] [address] [place] 2020-06-08 2020-06-08 Outpatient R DANILO [facility] [id number] Univers 14:15:00 14:15:00 JAXON ity of [facility] 2020-06-08 2020-06-08 Ancillary Lucía Vegas [facility] 1.2.840. 114 [id number] Univers 13:12:02 13:57:02 Visit Tamiko Aceves 350.1.13.1 0 ity of [facility] 4.2.7.2.[id number] [facility] [address] 2020-06-08 2020-06-08 Office Danilo [facility] 1.2.840.114 [id number] Univers 13:12:26 13:27:26 Visit Jaxon TREJO 350.1.13.10 i ty of [facility] 4.2.7.2.[address] [facility] [address] 2020-06-08 2020-06-08 Orders Doctor REYES 1.2.840.114 [id number] Univers 00:00:00 00:00:00 Only Unassigned, TOYA 350.1.13.10 ity of [place] [facility] 4.2.7.2.[phone] [facility] [address] 2020-05-25 2020-05-25 Office NILDA Palacios 1.2.895.264 [id number] Univers 13:57:31 15:41:39 Visit [facility] 350.1.13.10 i ty of [facility] [address] 4.2.7.2.[place] [phone] [facility] [address] 2020-05-25 2020-05-25 Outpatient Ab PALACIOS [facility] [id number] Univers 14:00:00 14:00:00 MARLEN ity [facility] 2020-05-25 2020-05-25 Patient Doctor REYES 1.2.840.114 [id number] Univers 00:00:00 00:00:00 Secure Msg Unassigned, TOYA 350.1.13.10 ity of [place] [facility] 4.2.7.2.[phone] [facility] [address] 2020-05-24 2020-05-24 Outpatient R LAWRENCE [facility] [id number] Univers 11:45:00 11:45:00 JAYNE ity [facility] 2020-05-24 2020-05-24 Literacy Specialist Alejandro, Adc Lab Main [facility] 1.2.8 40.114 [id number] Univers 10:11:45 10:26:45 Visit Jayne Amos 350.1.13.10 ity of [place] [phone] Ar dical nal 353 [facility] 2020-05-24 2020-05-24 Orders Doctor REYES 1.2.840.114 [id number] Univers 00:00:00 00:00:00 Only Unassigned, TOYA 350.1.13.10 ity of [place] [facility] 4.2.7.2.[id number] [facility] [address] 2020-05-23 2020-05-23 Office CARLOS GilesIT 1.2.269.687 [id number] Univers 09:33:55 10:59:33 Visit Fady Madrigal 350.1.13.10 ity of [place] 4.2.7.2.686 [place] BANK [phone] [facility] [address]G. [address] 2020-05-23 2020-05-23 Outpatient R CHAN [facility] [id number] Univers 09:45:00 09:45:00 SHEBA-DANIELG ity [facility] 2020-05-19 2020-05-19 Telephone CARLOS CarrascoIT 1.2.840.114 [id number] Univers 00:00:00 00:00:00 Jaxon Madrigal 350.1.13.10 it y of [place] 4.2.7.2.686 [place] [address] [phone] [facility] [address]G. [address] 2020-05-18 2020-05-18 Office Lydia [facility] 1.2.840.114 [id number] Univers 08:32:46 09:18:28 Visit Trish Madrigal 350.1.13.10 it y of [facility] 4.2.7.2.686 [place] [address]ANK [phone] [facility] [address]LDG. [address] 2020-05-18 2020-05-18 Outpatient [facility] [id number] Univers 08:45:00 08:45:00 TRISH ity of [facility] 2020-05-13 2020-05-13 Hospital [facility] 1.2.840.114 [id number] Univers 12:40:28 23:59:00 Encounter Jaxon Rodriguez 350.1.13.10 ity [facility] [place].2.7.2.[place] [phone] [facility] [address] 2020-05-13 2020-05-13 Outpatient R [facility] [id number] Univers 00:00:00 00:00:00 JAXON aranda [facility] 2020-05-11 2020-05-11 Telephone NILDA Palacios 1.2.840.114 [id number] Univers 00:00:00 00:00:00 [facility] 350.1.13.10 i ty of [facility] [address] 4.2.7.2.[place] [phone] [facility] [address] 2020-04-28 2020-04-28 Outpatient R FARZAD, [facility] [id number] Univers 14:50:00 14:50:00 OMAR ity of [facility] 2020-04-28 2020-04-28 Office [facility] 1.2.840.114 [id number] Univers 09:55:56 10:25:56 Visit Jaxon NEIL 350.1.13.10 i ty of [facility] 4.2.7.2.[phone] [facility] [address] 2020-04-27 2020-04-27 Literacy Specialist Alejandro, Adc Lab Main [facility] 1.2.8 40.114 [id number] Univers 12:56:14 13:11:14 Visit Kirk Cervantes 350.1.13.10 ity [facility] 4.2.7.2.[place] [phone] Ar dical nal 353 [facility] 2020-04-27 2020-04-27 Outpatient R SAM [facility] [id number] Univers 13:00:00 13:00:00 [facility] 2020-04-23 2020-04-23 Patient Doctor REYES 1.2.840.114 [id number] Univers 00:00:00 00:00:00 Secure Msg Unassigned, TOYA 350.1.13.10 ity of [place] [facility] 4.2.7.2.[phone] [facility] [address] 2020-04-18 2020-04-18 Refill Doctor [facility] 1.2.840.114 [id number] Univers 00:00:00 00:00:00 Unassigned, PRIMARY 350.1.13.10 ity of [place] [facility] 4.2.7.2.[place] [phone] Ar dical [address] 2020-04-13 2020-04-13 Office Philip, [facility] 1.2.645.788 [id number] Univers 13:49:29 15:16:19 Visit [facility] 350.1.13.10 i ty of [facility] [address] 4.2.7.2.[place] [id number] [facility] [address] 2020-04-13 2020-04-13 Outpatient R PHILIP [facility] [id number] Univers 14:00:00 14:00:00 [facility] 2020-04-04 2020-04-04 Telephone Philip, UN[facility]IT 1.2.840.114 [id number] Univers 00:00:00 00:00:00 [facility] 350.1.13.10 i ty of [facility] [address] 4.2.7.2.[place] [phone] [address] 2020-04-03 2020-04-03 Outpatient R FARZAD, [facility] [id number] Univers 14:30:00 14:30:00 OMAR aranda [facility] 2020-03-31 2020-03-31 Patient Doctor REYES 1.2.840.114 [id number] Univers 00:00:00 00:00:00 Secure Msg Unassigned, TOYA 350.1.13.10 ity of [place] [facility] 4.2.7.2.[id number] [facility] [address] 2020-03-30 2020-03-30 Office Tim [facility] 1.2.840.114 [id number] Univers 15:03:41 15:33:41 Visit Shakeel RAMÍREZ 350.1.13.10 it y of MEDICINE 4.2.7.2.686 [place] CLINIC - [phone] [address] 2020-03-30 2020-03-30 Outpatient R BONILLA [facility] [id number] Univers 13:00:00 13:00:00 ART tabory o f [facility] 2020-03-30 2020-03-30 Orders Doctor REYES 1.2.840.114 [id number] Univers 00:00:00 00:00:00 Only Unassigned, TOYA 350.1.13.10 ity of [place] [facility] 4.2.7.2.[phone] [facility] [address] 2020-03-24 2020-03-24 Literacy Specialist Pcp-Lab [facility] 1.2.840.114 [id number] Univers 12:50:48 13:05:48 Visit Shakeel Burton [facility] 350.1.13.10 ity of CARE 4.2.7.2.[place] [phone] Ar dical [address] 2020-03-24 2020-03-24 Telemedici [facility] 1.2.840.114 [id number] Univers 10:44:27 11:14:27 ne Visit Shakeel RAMÍREZ 350.1.13.10 i ty of MEDICINE 4.2.7.2.686 [place] CLINIC - [phone] [address] 2020-03-24 2020-03-24 Outpatient R TIM [facility] [id number] Univers 11:00:00 11:00:00 SHAKEEL aranda [facility] 2020-03-24 2020-03-24 Telephone Bonilla [facility] 1.2.277.518 [id number] Univers 00:00:00 00:00:00 [facility] MULTISPEC 350.1.13.10 ity of [place] 4[place]2.7.2.[place] CENTER [phone] [facility] [address] [facility] 2020-03-23 2020-03-23 Telephone Philip, [facility] 1.2.840.114 [id number] Univers 00:00:00 00:00:00 [facility] 350.1.13.10 i ty of [facility] CLINICS 4.2.7.2.[place] [address] [phone] [facility] [address] 2020-03-23 2020-03-23 Telephone Philip, [facility] 1.2.840.114 [id number] Univers 00:00:00 00:00:00 [facility] 350.1.13.10 i ty of [facility] [address] 4.2.7.2.[place] [address] [phone] [facility] [address] 2020-03-22 2020-03-22 Office Bonilla [facility] 1.2.056.403 [id number] Univers 10:55:03 11:25:32 Visit [facility] 350.1.13.10 ity of [facility] CLINICS 4.2.7.2.[address] [facility] [address] 2020-03-22 2020-03-22 Outpatient R BONILLA [facility] [id number] Univers 11:00:00 11:00:00 ART aranda o f [facility] 2020-03-17 2020-03-17 Office Tim [facility] 1.2.840.114 [id number] Univers 08:07:57 09:27:51 Visit Shakeel [facility] 350.1.13.10 it y of MEDICINE 4.2.7.2.686 [place] CLINIC - [phone] [address] 2020-03-17 2020-03-17 Outpatient R TIM [facility] [id number] Univers 08:00:00 08:00:00 SHAKEEL ity [facility] 2020-03-15 2020-03-15 Telephone Tim [facility] 1.2.089.665 [id number] Univers 00:00:00 00:00:00 Shakeel RAMÍREZ 350.1.13.10 it y of MEDICINE 4.2.7.2.686 [place] CLINIC - [phone] [address] 2020-03-14 2020-03-14 Literacy Specialist Lab, [facility] [address] [facility] 1 .2.840.114 [id number] Univers 08:19:11 08:34:11 Visit Shakeel Burton 350.1.13.10 ity of MEDICINE 4.2.7.2.686 [place] CLINIC - [phone] [address] 2020-03-14 2020-03-14 Outpatient R [facility] [id number] Univers 08:15:00 08:15:00 ity [facility] 2020-03-11 2020-03-11 Telephone Tim [facility] 1.2.729.550 [id number] Univers 00:00:00 00:00:00 Shakeel RAMÍREZ 350.1.13.10 it y of MEDICINE 4.2.7.2.686 [place] CLINIC - [phone] [address] 2020-03-10 2020-03-10 Outpatient R [facility] [id number] Univers 08:00:00 08:00:00 ity [facility] 2020-03-02 2020-03-02 Transition Melanie Mejia 1.2.840.114 [id number] Univers 00:00:00 00:00:00 of Care Jared Vickers 350.1.13.[address] [facility] [place]2.7.2.[place] [id number] [address] 2020-02-29 2020-03-01 [facility] Kenyatta Boss 1 .2.840.114 [id number] Univers 15:42:00 17:30:00 Encounter Brianna Sanchez 350.1.13.10 ity of [facility] 4.2.7.2.[phone] [facility] [address] 2020-02-29 2020-02-29 Literacy Specialist Lab, [facility] [address] [facility] 1 .2.840.114 [id number] Univers 07:56:25 08:11:25 Visit Marlen Palacios FAMILY 3 50.1.13.10 ity of MEDICINE 4.2.7.2.686 [place] CLINIC - [phone] [address] 2020-02-29 2020-02-29 [facility] [id number] Univers 08:00:00 [facility] 2020-02-24 2020-02-24 Refill [facility] 1.2.840.114 [id number] Univers 00:00:00 00:00:00 Shakeel FAMILY 350.1.13.10 it y of MEDICINE 4.2.7.2.686 [place] CLINIC - [phone] [address] 2020-02-22 2020-02-22 Office NILDA Giles 1.2.294.300 [id number] Univers 09:19:01 11:19:16 Visit ShebaCintiarudolph Y 350.1.13.10 ity of NATIONAL 4.2.7.2.686 [place] BANK [phone] [facility] BLDG. [address] 2020-02-22 2020-02-22 Outpatient R [facility]AN [facility] [id number] Univers 09:30:00 09:30:00 [facility] 2020-02-22 Patient Tim [facility] 1.2.840.114 [id number] Univers 00:00:00 00:00:00 Secure Msg Shakeel FAMILY 350.1.13.10 ity of MEDICINE 4.2.7.2.686 [place] [facility] - [id number] [address] 2020-02-18 2020-02-18 Outpatient R CARMEN [facility] [id number] Univers 20:00:00 20:00:00 DAMEON aranda [facility] 2020-02-18 2020-02-18 Literacy Specialist Lab, Sleep JENNIFER 1.2.840.114 [id number] Univers 15:27:33 17:57:33 Visit Dameon Morales 350.1.13.10 ity of [place].2.[address] [place] [id number] [facility] [address] 2020-02-18 2020-02-18 Pre Visit Tim [facility] 1.2.210.536 [id number] Univers 00:00:00 00:00:00 Outreach Shakeel FAMILY 350.1.13.10 i ty of MEDICINE 4.2.7.2.686 [place] - [id number] [address] 2020-02-18 2020-02-18 Orders NILDA Crystal 1.2.273.128 [id number] Univers 00:00:00 00:00:00 Only Art Y HEALTH 350.1.13.10 ity of [place]ICS [place] [place] [phone] [facility] [address] 2020-02-17 2020-02-17 Telephone CARLOS Palacios 1.2.840.114 [id number] Univers 00:00:00 00:00:00 Marlen Y HEALTH 350.1.13.10 i ty of [facility] CLINICS [place] [id number] [facility] [address] 2020-02-17 2020-02-17 Refill Tim [facility] 1.2.840.114 [id number] Univers 00:00:00 00:00:00 Shakeel FAMILY 350.1.13.10 it y of MEDICINE 4.2.7.2.686 [place] - [id number] [address] 2020-02-17 2020-02-17 Telephone Tim TNANNIKA 1.2.057.605 [id number] Univers 00:00:00 00:00:00 Sh[place] FAMILY 350.1.13.10 it y of MEDICINE 4.2.7.2.686 [place] - [id number] [address] 2020-02-15 2020-02-15 Laboratory Only, Pcp Test [facility] 1.2.840. 114 [id number] Univers 09:46:28 10:01:28 Only Art Crystal Fathi PRIMARY 350.1.1 3.10 ity of C[place] 4[place]2.7.2.[place] [id number] Ar dical [address] 2020-02-15 2020-02-15 Office NILDA Momin 1.2.840.114 [id number] Univers 09:04:06 09:36:35 Visit Trish Y 350.1.13.10 it y of NATIONAL 4.2.7.2.686 [place] B[place] [phone] [facility] BLDG. [address] 2020-02-15 2020-02-15 Outpatient R LYDIA [facility] [id number] Univers 09:15:00 09:15:00 TRISH ity of [facility] 2020-02-03 2020-02-03 Office Tim [facility] 1.2.840.114 [id number] Univers 08:01:06 08:59:40 Visit Shakeel RAMÍREZ 350.1.13.10 it y of MEDICINE 4.2.7.2.686 [place] CLINIC - [phone] [address] 2020-02-03 2020-02-03 Outpatient R TIM [facility] [id number] Univers 08:00:00 08:00:00 SHAKEEL ity of [facility] 2020-02-01 2020-02-01 Case VICENTE CalderonJcJ 1.2.840.114 [id number] Univers 00:00:00 00:00:00 Management [facility] 350.1.13.10 it[place] [place] [phone] [facility] [address] 2020-02-01 2020-02-01 Refill Tim [facility] 1.2.840.114 [id number] Univers 00:00:00 00:00:00 Shakeel FAMILY 350.1.13.10 it y of MEDICINE 4.2.7.2.686 [place] - [phone] [address] 2020-01-27 2020-01-27 Patient Doctor [facility] 1.2.840.114 [id number] Univers 00:00:00 00:00:00 Secure Msg Unassigned, FAMILY 350.1.13.10 ity of [place] MEDICINE 4.2.7.2.686 [place] - [phone] [address] 2020-01-26 2020-01-26 Patient Doctor [facility] 1.2.840.114 [id number] Univers 00:00:00 00:00:00 Secure Msg Unassigned, FAMILY 350.1.13.10 ity of [place] MEDICINE 4.2.7.2.686 [place] - [phone] [address] 2020-01-26 2020-01-26 Telephone Tim [facility] 1.2.854.931 2023 1026 Univers 00:00:00 00:00:00 Shakeel FAMILY 350.1.13.10 it y of MEDICINE 4.2.7.2.686 [place] - [id number] [address] 2020-01-25 2020-01-25 [facility] 1.2.840.114 [id number] Univers 09:56:36 23:59:00 Encounter Aubrie Madrigal HEALTH 350.1.13.10 it[place] of [place] [phone] [address] 2020-01-25 2020-01-25 Outpatient [facility] [id number] Univers 00:00:00 00:00:00 AUBRIE ity of [facility] 2020-01-25 2020-01-25 Refill Tim [facility] 1.2.840.114 [id number] Univers 00:00:00 00:00:00 Shakeel FAMILY 350.1.13.10 it y of MEDICINE 4.2.7.2.686 [place] - [phone] [address] 2020-01-22 2020-01-22 Office Tim [facility] 1.2.840.114 [id number] 50 Univers 13:26:28 14:55:22 Visit Shakeel FAMILY 350.1.13.10 it y of MEDICINE 4.2.7.2.686 [place] - [phone] [address] 2020-01-22 2020-01-22 Outpatient R TIM, [facility] [id number] Univers 13:30:00 13:30:00 SHAKEEL ity of [facility] 2020-01-22 2020-01-22 Orders Doctor REYES 1.2.840.114 [id number] Univers 00:00:00 00:00:00 Only Unassigned, TOYA 350.1.13.10 ity of [place] HOSPITAL 4.2.7.2.686 [place] [phone] [address] 2020-01-15 2020-01-15 Refill Doctor [facility] 1.2.840.114 [id number] Univers 00:00:00 00:00:00 Unassigned, PRIMARY 350.1.13.10 it[place] of [place] [phone] [address] 2020-01-03 2020-01-03 Refill Doctor [facility] 1.2.331.768 [id number] Univers 00:00:00 00:00:00 Unassigned, Y HEALTH 350.1.13.10 ity of [place] [id number] [address] 2020-01-01 2020-01-01 Case Bonilla, UN[facility] 1.2.353.358 [id number] Univers 00:00:00 00:00:00 Management Art Y HEALTH 350.1.13.10 ity of [place] [id number] [address] 2019-12-31 2019-12-31 Patient Doctor REYES 1.2.840.114 [id number] Univers 00:00:00 00:00:00 Secure Msg Unassigned, TOYA 350.1.13.10 ity of [place] HOSPITAL 4.2.7.2.686 [place] [id number] [address] 2019-12-30 2019-12-30 Outpatient R [facility] [id number] Univers 20:00:00 20:00:00 ity of [facility] 2019-12-30 2019-12-30 [facility] Lab, Sleep JENNIFER 1.2.840.114 [id number] Univers 12:48:43 15:18:43 Visit Dameon Morales 350.1.13.10 ity of PAVILL[place].2.[address] [place] [address] [id number] [facility] [address] 2019-12-29 2019-12-29 Patient Doctor [facility] 1.2.840.114 [id number] Univers 00:00:00 00:00:00 Secure Msg Unassigned, FAMILY 350.1.13.10 ity of [place] MEDICINE 4.2.7.2.686 [place] - [phone] [address] 2019-12-29 2019-12-29 Refill Tim [facility] 1.2.840.114 [id number] Univers 00:00:00 00:00:00 Shakeel FAMILY 350.1.13.10 it y of MEDICINE 4.2.7.2.686 [place] - [id number] [address] 2019-12-28 2019-12-28 Office NILDA Giles 1.2.670.336 [id number] 3192 Univers 09:08:55 10:39:29 Visit Fady Y 350.1.13.10 ity of NATIONAL 4.2.7.2.686 [place] BANK [phone] [facility] BLDG. [address] 2019-12-28 2019-12-28 Outpatient R CHAN [facility] [id number] Univers 09:15:00 09:15:00 FADY ity of [facility] 2019-12-28 2019-12-28 Orders Doctor REYES 1.2.840.114 [id number] Univers 00:00:00 00:00:00 Only Unassigned, TOYA 350.1.13.10 ity of [place] HOSPITAL 4.2.7.2.[phone] [facility] [address] 2019-12-27 2019-12-27 Refill Doctor TNANNIKA 1.2.840.114 [id number] Univers 00:00:00 00:00:00 Unassigned, FAMILY 350.1.13.10 ity of [place] MEDICINE 4.2.7.2.686 [place] - [phone] [address] 2019-12-27 2019-12-27 Refill Doctor [facility] 1.2.840.114 [id number] Univers 00:00:00 00:00:00 Unassigned, PRIMARY 350.1.13.10 ity of [place] [id number] Ar dicwv [address] 2019-12-26 2019-12-26 Outpatient R [facility] [id number] Univers 14:45:00 14:45:00 ity of [facility] 2019-12-25 2019-12-25 Laboratory Only, Pcp Test [facility] 1.2.840. 114 [id number] Univers 10:09:47 10:24:47 Only Art Crystal PRIMARY 350.1.1 3.10 it[place] of [place] [id number] [facility] [address] 2019-12-25 2019-12-25 Outpatient R BONILLA [facility] [id number] Univers 10:15:00 10:15:00 ART ity o f [facility] 2019-12-22 2019-12-22 Office Tim [facility] 1.2.840.114 [id number] Univers 08:06:23 09:56:50 Visit Shakeel [facility] 350.1.13.10 it y of MEDICINE 4.2.7.2.686 [place] CL[place] - [phone] [address] 2019-12-22 2019-12-22 Outpatient R TIM [facility] [id number] Univers 08:00:00 08:00:00 SHAKEEL ity of [facility] 2019-12-14 2019-12-14 [facility] 1.2.840.114 [id number] Univers 08:56:57 23:59:00 Encounter Benny Rohan [facility] 350.1.13.10 ity of CLINICS 4[place]2.7.[place].[address] [place] [id number] [facility] [address] 2019-12-14 2019-12-14 [facility] [id number] Univers 00:00:00 00:00:00 BENNY ity of [facility] 2019-12-08 2019-12-08 Refill Doctor [facility] 1.2.840.114 [id number] Univers 00:00:00 00:00:00 Unassigned, PRIMARY 350.1.13.10 it[place] of [place] [id number] Ar dical [address] 2019-12-03 2019-12-03 Refill Doctor [facility] 1.2.840.114 [id number] Univers 00:00:00 00:00:00 Unassigned, PRIMARY 350.1.13.10 ity of [place] [id number] Ar dical [address] 2019-11-30 2019-11-30 Refill Santillan, [facility] 1.2.840.114 [id number] Univers 00:00:00 00:00:00 Tremaine PRIMARY 350.1.13.10 it y of [place] [id number] Ar dicwv [address] 2019-11-27 2019-11-27 Outpatient R BARRY HINTON [facility] [id number] Univers 14:00:00 14:00:00 ity of [facility] 2019-11-27 2019-11-27 Telemedici Chacha Reddy [facility] 1.2.840.114 [id number] Univers 09:00:16 09:20:16 ne Visit Barry Hinton S PRIMARY 350.1.13.10 ity of [place] R CARE 4.2.7.2.686 [place] PAVILLION [phone] Ar dical [address] 2019-11-24 2019-11-25 Office Bong MaysIT 1.2.840.114 [id number] Univers 14:52:14 09:11:55 Visit Art Crystal HEALTH 350.1. 13.10 ity of CLINICS 4[place] [place] [id number] [facility] [address] 2019-11-24 2019-11-24 Outpatient R BONILLA [facility] [id number] 086 Univers 15:00:00 15:00:00 MOHAMMED ity o f [facility] 2019-11-21 2019-11-21 Refill Doctor [facility] 1.2.840.114 [id number] Univers 00:00:00 00:00:00 Unassigned, FAMILY 350.1.13.10 ity of [place] MEDICINE 4.2.7.2.686 [place] CL[place]IC - [phone] [address] 2019-11-13 2019-11-14 Office Lisandra Escoto [facility] 1.2.840.114 [id number] Univers 10:58:52 07:52:19 Visit Barry Hinton PRIMARY 350.1.13.10 it[place] [id number] [facility] [address] 2019-11-13 2019-11-13 Hospital Bonilla, [facility] 1.2.840.114 [id number] Univers 15:12:04 23:59:00 Encounter [facility] 350.1.13.10 ity of [place] CLINICS [place] [place] [id number] [facility] [address] 2019-11-13 2019-11-13 Outpatient R BONILLA [facility] [id number] Univers 14:30:00 14:30:00 MOHAMMED ity o f [facility] 2019-11-11 2019-11-11 Office CARLOS MominIT 1.2.840.114 [id number] Univers 09:25:20 10:02:09 Visit Trish Madrigal 350.1.13.10 it y of NATIONAL 4.2.7.2.686 [place] [address] [phone] [facility] BLDG. [address] 2019-11-11 2019-11-11 Outpatient R LYDIA [facility] [id number] Univers 09:30:00 09:30:00 TRISH ity of [facility] 2019-11-10 2019-11-10 Office Fady Giles [facility] 1.2.840. 114 [id number] Univers 09:04:47 10:29:42 Visit Josh Renteria 350.1.13.10 ity of NATIONAL 4.2.7.2.686 [place] [address] [phone] [facility] BLDG. [address] 2019-11-10 2019-11-10 Outpatient R KELTON [facility] [id number] Univers 09:15:00 09:15:00 JOSH ity of [facility] 2019-11-10 2019-11-10 Laboratory Only, Pcp Test [facility] 1.2.840. 114 [id number] Univers 08:39:56 08:54:56 Only SherlynchrystalArt Fatdarrion PRIMARY 350.1.1 3.10 it[place] [phone] [facility] [address] 2019-11-10 2019-11-10 Transition Melanie Mejia 1.2.840.114 [id number] Univers 00:00:00 00:00:00 of Care Jared Lepey 350.1.13.10 ity of [place]2.7.[place].[address] [id number] [facility] [address] 2019-11-04 2019-11-07 Hospital Brett Luciano 1.2.840. 114 [id number] Univers 17:11:00 17:55:00 Encounter Dona Badillo 350.1.13.10 ity of Hospital 4.2.7.2.[id number] [facility] [address] 2019-11-02 2019-11-02 Refill Estevan [facility] 1.2.840.114 [id number] Univers 00:00:00 00:00:00 Bartolo FAMILY 350.1.13.10 it y of MEDICINE 4.2.7.2.686 [place] CL[place]IC - [id number] [facility] 311 [facility] 2019-11-02 2019-11-02 Refill Christian-Nwo [facility] 1.2.840.114 [id number] Univers 00:00:00 00:00:00 , Christian PRIMARY 350.1.13.10 ity of [place] CARE 4.2.7.2.686 [place] PAVILLION [phone] Ar dical [address] 2019-10-31 2019-10-31 Outpatient R UNKNOWN, [facility] [id number] Univers 13:45:00 13:45:00 ATTENDING ity of [facility] 2019-10-28 2019-10-28 Telephone CARLOS CrystalIT 1.2.840.114 [id number] Univers 00:00:00 00:00:00 [facility] HEALTH 350.1.13.10 ity of [place] CL[place] [id number] [address] 2019-10-27 2019-10-27 [facility] [id number] Univers 15:00:00 15:00:00 [facility] o f [facility] 2019-10-27 2019-10-27 Telemedici Bonilla [facility] 1.2.840.114 [id number] Univers 09:04:00 10:55:09 ne Visit [facility] 350.1.13.10 ity of [place] CLINICS 4[place]2.7.[place].[address] [place] [id number] [facility] [address] 2019-10-21 2019-10-21 Office CARLOS Emanuel 1.2.884.686 [id number] Univers 11:27:40 12:15:39 Visit [facility] 350.1.13.10 ity of CLINICS 4[place].[address] [place] [address] [facility] [address] 2019-10-21 2019-10-21 Outpatient R ADELFO [facility] [id number] Univers 11:30:00 11:30:00 SANTHISRI ity of [facility] 2019-10-16 2019-10-16 Ancillary Malena Medina [facility] 1 .2.840.114 [id number] Univers 10:21:55 11:01:55 Visit Angela Levy [facility] 350.1.13.10 ity of C[place] 602.1033304 Ar dical [address] 2019-10-12 2019-10-12 Telephone CARLOS CrystalIT 1.2.840.114 [id number] Univers 00:00:00 00:00:00 [facility] HEALTH 350.1.13.10 ity of [place] CLINICS 4[place]2.7.[place].[address] [place] [id number] [facility] [address] 2019-10-12 2019-10-12 Orders Doctor REYES 1.2.840.114 [id number] Univers 00:00:00 00:00:00 Only Unassigned, TOYA 350.1.13.10 [facility] 4.2.7.2.686 [place] [id number] [address] 2019-10-09 2019-10-09 Telephone Bonilla NILDA 1.2.840.114 [id number] Univers 00:00:00 00:00:00 Art Y HEALTH 350.1.13.10 ity of [place] [id number] [address] 2019-10-08 2019-10-08 Outpatient R [facility] [id number] Univers 10:20:00 10:20:00 ity of [facility] 2019-09-25 2019-09-25 Ancillary Malena Medina [facility] 1 .2.840.114 [id number] Univers 08:30:04 09:10:04 Visit Angela Levy PRIMARY 350.1.13.10 ity of C[place] 708.5988474 Ar dicwv [address] 2019-09-25 2019-09-25 Outpatient R [facility] [id number] Univers 08:40:00 08:40:00 ity of [facility] 2019-09-24 2019-09-24 Refill Negrita [facility] 1.2.746.010 [id number] Univers 00:00:00 00:00:00 [place] FAMILY 350.1.13.10 it y of MEDICINE 4.2.7.2.686 [place] CLINIC - [phone] [address] 2019-09-23 2019-09-23 Orders Doctor REYES 1.2.840.114 [id number] Univers 00:00:00 00:00:00 Only Unassigned, TOYA 350.1.13.10 ity of [place] HOSPITAL 4.2.7.2.[id number] [facility] [address] 2019-09-22 2019-09-22 Office CARLOS CrystalIT 1.2.037.344 [id number] Univers 13:53:29 14:55:31 Visit [facility] 350.1.13.10 ity of [facility] CL[place]ICS [place] 197.0260635 [address] 2019-09-22 2019-09-22 Outpatient [facility] [id number] Univers 14:00:00 14:00:00 [facility] leandery o f [facility] 2019-09-22 2019-09-22 Refill CARLOS Crystal 1.2.949.521 [id number] Univers 00:00:00 00:00:00 [facility] 350.1.13.10 ity of [facility] [place] [id number] [address] 2019-09-11 2019-09-11 Office [facility] 1.2.258.428 [id number] Univers 14:00:48 14:30:48 Visit [facility] 350.1.13.10 it y of MEDICINE 4.2.7.2.686 [place] CL[place]IC - 604.8565921 [address] 2019-09-11 2019-09-11 Outpatient [facility] [id number] Univers 14:00:00 14:00:00 JAMES ity of [facility] 2019-09-11 2019-09-11 Ancillary Malena Medina [facility] 1 .2.840.114 [id number] Univers 11:19:31 13:14:39 Visit Angela Levy [facility] 350.1.13.10 ity of C[place] DIANNAILLION [id number] [facility] [address] 2019-09-07 2019-09-07 Telemedici Aravind [facility] 1.2.840.114 [id number] Univers 09:40:00 10:00:00 ne Visit Maye PRIMARY 350.1.13.10 i ty of [place] 742.9993544 Ar dical [address] 2019-09-07 2019-09-07 Outpatient R ARAVIND, [facility] [id number] Univers 09:40:00 09:40:00 MAYE [facility] 2019-09-01 2019-09-01 Patient Negrita [facility] 1.2.248.335 [id number] Univers 00:00:00 00:00:00 Secure Msrudolph Ramirez PRIMARY 350.1.13.10 ity of [place] 202.2943606 Ar dical [address] 2019-08-27 2019-08-27 Ancillary Malena Medina [facility] 1 .2.840.114 [id number] Univers 10:19:34 10:59:34 Visit Angela Levy PRIMARY 350.1.13.10 ity of [place] 850.6584903 Ar dical [address] 2019-08-13 2019-08-24 Ancillary Malena Medina [facility] 1 .2.840.114 [id number] Univers 10:19:36 11:06:11 Visit Angela Levy PRIMARY 350.1.13.10 ity of [place] 432.9607132 Ar dical [address] 2019-08-19 2019-08-19 Outpatient R CARMEN [facility] [id number] Univers 20:00:00 20:00:00 DAMEON aranda [facility] 2019-08-19 2019-08-19 Literacy Specialist Lab, Sleep JENNIFER 1.2.840.114 [id number] Univers 15:36:33 18:06:33 Visit Dameon Morales 350.1.13.10 it[place] [phone] [facility] christa [address] 2019-08-19 2019-08-19 Orders Barry Hinton [facility] 1.2.840.114 [id number] Univers 00:00:00 00:00:00 Only S HEALTH 350.1.13.10 it y of [place] 051.7333990 Med ical HOANG 044 [facility] 2019-08-17 2019-08-17 Laboratory Only, Pcp Test [facility] 1.2.840. 114 [id number] Univers 10:01:55 10:16:55 Only Barry Hinton S PRIMARY 350.1.13.10 ity [place] 310.5035315 Ar dicwv [address] 2019-08-17 2019-08-17 Outpatient R BARRY HINTON [facility] [id number] Univers 10:00:00 10:00:00 ity of [facility] 2019-07-31 2019-08-14 Office Christian Murillo [facility] 1.2.840.114 [id number] Univers 16:20:55 09:50:47 Visit Barry Hinton PRIMARY 350.1.13.10 ity of [place] 854.1263679 Ar dic[address] 2019-08-13 2019-08-13 Outpatient R NEGRITA [facility] [id number] Univers 15:51:52 23:59:00 JAMES ity of [facility] 2019-08-13 2019-08-13 [facility] 1.2.840.114 [id number] Univers 15:51:00 23:59:00 Encounter James PRIMARY 350.1.13.10 ity of [place] 485.2072074 Ar dical [address] 2019-08-13 2019-08-13 [facility] 1.2.440.613 [id number] [id number] Univers 15:47:02 16:36:56 Visit James PRIMARY 350.1.13.10 it y [place] 205.2714711 Ar dicwv [address] 2019-08-13 2019-08-13 Outpatient [facility] [id number] Univers 10:20:00 10:20:00 ANGELA ity of [facility] 2019-08-13 2019-08-13 [facility] 1.2.840.114 [id number] Univers 00:00:00 00:00:00 Christian santiago PRIMARY 350.1.13.10 ity of [place] CARE 4.2.7.2.686 [place] PAVILLION [id number] Ar dical [address] 2019-08-12 2019-08-12 Outpatient R [facility] [id number] Univers 11:00:00 11:00:00 ity of [facility] 2019-08-10 2019-08-10 Office CARLOS MominIT 1.2.840.114 [id number] Univers 08:55:09 09:32:07 Visit Trish Madrigal 350.1.13.10 it y of [place]ATIONAL 4.2.7.2.[address] [place] [address] [id number] [facility] BLDG. [address] 2019-08-10 2019-08-10 Out[facility] [id number] Univers 09:00:00 09:00:00 TRISH ity of [facility] 2019-08-03 2019-08-03 Outpatient R [facility] [id number] Univers 11:20:00 11:20:00 ity of [facility] 2019-07-31 2019-07-31 Outpatient R BARRY HINTON [facility] [id number] Univers 16:20:00 16:20:00 ity of [facility] 2019-07-30 2019-07-30 Ancillary Malena Medina [facility] 1 .2.840.114 [id number] Univers 13:28:03 14:08:03 Visit Angela Levy PRIMARY 350.1.13.10 ity [place] [id number] Ar dical [address] 2019-07-28 2019-07-28 Telephone [facility] 1.2.722.047 [id number] Univers 00:00:00 00:00:00 Tremaine FAMILY 350.1.13.10 it y of [place] MEDICINE 4.2.7.2.686 [place] CLINIC - [id number] [address] 2019-07-28 2019-07-28 Telephone [facility] 1.2.505.938 [id number] Univers 00:00:00 00:00:00 Tremaine FAMILY 350.1.13.10 it y of [place] MEDICINE 4.2.7.2.686 [place] CLINIC - 709.6000555 [address] 2019-07-22 2019-07-22 Orders Doctor REYES 1.2.840.114 [id number] Univers 00:00:00 00:00:00 Only Unassigned, TYOA 350.1.13.10 ity of [place] [facility] 4.2.7.2.[address] [facility] [address] 2019-07-17 2019-07-17 Ancillary Malena Medina [facility] 1 .2.840.114 [id number] Univers 09:58:57 10:49:36 Visit Angela Levy PRIMARY 350.1.13.10 ity of C[place] [phone] Ar dical [address] 2019-07-17 2019-07-17 Outpatient Ab LEVY [facility] [id number] Univers 10:00:00 10:00:00 ANGELA aranda of [facility] 2019-07-09 2019-07-09 Office Put[place]param UNIVERS 1.2.840.114 [id number] Univers 08:31:06 10:38:28 Visit Rocael sheets 350.1.13.10 ity of [facility] 4.2.7.2.686 [place] [address] BANK [phone] [facility] BLDG. [address] 2019-07-09 2019-07-09 Outpatient R ROLF [facility] [id number] Univers 08:45:00 08:45:00 ROCAEL SHEETS itrohan [facility] 2019-07-09 2019-07-09 Orders Doctor REYES 1.2.840.114 [id number] Univers 00:00:00 00:00:00 Only Unassigned, TOYA 350.1.13.10 ity of [place] [facility] 4.2.7.2.[phone] [facility] [address] 2019-07-08 2019-07-08 Outpatient R [facility] [id number] Univers 16:00:00 16:00:00 ity of [facility] 2019-07-08 2019-07-08 Telemedici Oscar Gibbs UNIVERSIT 1.2.840.1 [id number] Univers 08:25:50 08:55:50 ne Visit Kirk Cervantes Y HEALTH 350.1.13.10 ity [place] [place] [phone] [facility] [address] 2019-07-03 2019-07-03 Literacy Specialist Pcp-Lab [facility] 1.2.840.114 [id number] Univers 10:16:04 10:26:04 Visit Diana Patrick PRIMARY 350.1.13.10 [place] [phone] Ar dical [address] 2019-07-03 2019-07-03 [facility] [id number] Univers 10:20:00 10:20:00 DIANA ity of [facility] 2019-07-03 2019-07-03 Telephone [facility] 1.2.840.114 [id number] Univers 00:00:00 00:00:00 sa, Christian FAMILY 350.1.13.10 ity of [place] MEDICINE 4.2.7.2.686 [facility] - [phone] [facility] [address] [facility] 2019-06-29 2019-06-29 Refill [facility] 1.2.840.114 [id number] Univers 00:00:00 00:00:00 sa, Christian PRIMARY 350.1.13.10 ity of [place] CARE 4.2.7.2.686 [place] PAVILLION [phone] Ar dical [address] 2019-06-08 2019-06-08 Telephone Oscar Gibbs UNIVERSIT 1.2.840.11 [id number] Univers 00:00:00 00:00:00 Y HEALTH 350.1.13.10 i ty [phone] [address] 2019-06-08 2019-06-08 Refill [facility] 1.2.840.114 [id number] Univers 00:00:00 00:00:00 Tremaine FAMILY 350.1.13.10 it y of [place] MEDICINE 4.2.7.2.686 [place] CLINIC - [phone] [address] 2019-06-01 2019-06-01 Outpatient Ab BANSAL [facility] [id number] Univers 08:45:00 08:45:00 ROCAEL SHEETS [facility] 2019-05-26 2019-05-26 Telephone [facility] 1.2.633.954 [id number] Univers 00:00:00 00:00:00 Tremaine FAMILY 350.1.13.10 it y of [place] MEDICINE 4.2.7.2.686 [place] CLINIC - [phone] [address] 2019-05-22 2019-05-22 Ancillary Malena Medina [facility] 1 .2.840.114 [id number] Univers 09:55:49 10:55:49 Visit Angela Levy PRIMARY 350.1.13.10 [place] [phone] [address] 2019-05-22 2019-05-22 Outpatient Ab LEVY [facility] [id number] Univers 10:20:00 10:20:00 ANGELA aranda [facility] 2019-05-20 2019-05-21 Telemedici Oscar Gibbs UNIVERSIT 1.2.840.1 14 [id number] Univers 08:04:11 10:04:03 ne Visit Kirk Cervantes HEALTH 350.1.13.10 [phone] [address] 2019-05-20 2019-05-20 Outpatient Ab CERVANTES [facility] [id number] Univers 15:00:00 15:00:00 [facility] 2019-05-19 2019-05-20 Telemedici Tremaine Santillan [facility] 1. 2.840.114 [id number] Univers 08:48:34 14:43:38 ne Visit Dona Badillo FAMILY 350.1.13.10 ity of MEDICINE 4.2.7.2.686 [place] - [phone] [address] 2019-05-20 2019-05-20 Telephone Tyrell [facility] 1.2.160.978 [id number] Univers 00:00:00 00:00:00 Tremaine FAMILY 350.1.13.10 it y of [facility] MEDICINE 4.2.7.2.686 [place] - [phone] [address] 2019-05-19 2019-05-19 Outpatient R [facility] [id number] Univers 10:10:00 10:10:00 ity [facility] 2019-05-15 2019-05-15 Refill Doctor [facility] 1.2.840.114 [id number] Univers 00:00:00 00:00:00 Unassigned, FAMILY 350.1.13.10 ity of [place] MEDICINE 4.2.7.2.686 [place] - [phone] [address] 2019-04-20 2019-05-09 Office EscotoLisandra [facility] 1.2.840.114 [id number] Univers 08:49:15 16:56:34 Visit Jose Armando Goldstein FAMILY 350.1.13.10 ity of MEDICINE 4.2.7.2.686 [place] - [phone] [address] 2019-05-07 2019-05-07 Orders Doctor REYES 1.2.840.114 [id number] Univers 00:00:00 00:00:00 Only Unassigned, TOYA 350.1.13.10 ity of [place] [facility] 4.2.7.2.686 [place] [phone] [address] 2019-05-07 2019-05-07 Refill Nathalie [facility] 1.2.840.114 [id number] Univers 00:00:00 00:00:00 Dona A FAMILY 350.1.13.10 i ty of MEDICINE 4.2.7.2.686 [place] - [phone] [address] 2019-05-05 2019-05-05 Outpatient Ab VACA [facility] [id number] Univers 09:00:00 09:00:00 LEXI aranda [facility] 2019-05-05 2019-05-05 Refill Jevon [facility] 1.2.840.114 [id number] Univers 00:00:00 00:00:00 Lisandra RAMÍREZ 350.1.13.10 it y of MEDICINE 4.2.7.2.686 [place] - [phone] [address] 2019-05-03 2019-05-03 Refill Doctor [facility] 1.2.840.114 [id number] Univers 00:00:00 00:00:00 Unassigned, FAMILY 350.1.13.10 ity of [place] MEDICINE 4.2.7.2.686 [place] - [phone] [address] 2019-04-28 2019-04-28 Outpatient Ab VACA [facility] [id number] Univers 09:00:00 09:00:00 LEXI [facility] 2019-04-28 2019-04-28 Orders Doctor REYES 1.2.840.114 [id number] Univers 00:00:00 00:00:00 Only Unassigned, TOYA 350.1.13.10 ity of [place] [facility] 4.2.7.2.686 [place] [phone] [address] 2019-04-27 2019-04-27 Orders Doctor REYES 1.2.840.114 [id number] Univers 00:00:00 00:00:00 Only Unassigned, TOYA 350.1.13.10 ity of [place] [facility] 4.2.7.2.686 [place] [phone] [address] 2019-04-22 2019-04-23 Office Lisandra Escoto [facility] 1.2.840.114 [id number] Univers 08:46:25 13:26:04 Visit Ramon Alcazar FAMILY 350.1.13.10 ity of MEDICINE 4.2.7.2.[place] - [phone] [address] 2019-04-22 2019-04-22 Outpatient Ab ALCAZAR [facility] [id number] Univers 08:50:00 14:36:41 RAMON ity [facility] 2019-04-22 2019-04-22 Telephone [facility] 1.840.114 74 [id number] Univers 00:00:00 00:00:00 Pati Jean-Paul RAMÍREZ 350.1.13.10 i ty of MEDICINE 4.2.7.2.686 [place] - [phone] [address] 2019-04-20 2019-04-20 Outpatient Ab GOLDSTEIN [facility] [id number] Univers 10:04:58 23:59:00 JOSE ARMANDO ity [facility] 2019-04-20 2019-04-20 [facility] 1..840.114 [id number] Univers 10:04:00 23:59:00 Encounter [facility] 350.1.13.10 ity of [place] [phone] [facility] [address] [place] [address] 2019-04-20 2019-04-20 Outpatient Ab GOLDSTEIN [facility] [id number] Univers 08:50:00 10:43:29 JOSE ARMANDO ity [facility] 2019-04-20 2019-04-20 [facility] 1..840.114 74 [id number] Univers 00:00:00 00:00:00 sa Christian FAMILY 350.1.13.10 ity of [place] - [phone] [address] 2019-04-15 2019-04-15 Telephone [facility] 1..481.492 7155 [id number] Univers 00:00:00 00:00:00 Tremaine FAMILY 350.1.13.10 it y of [place] MEDICINE 4.2.7.2.686 [place] - [phone] [address] 2019-04-14 2019-04-14 Orders Doctor PULLIAM 1.2.840.114 [id number] Univers 00:00:00 00:00:00 Only Unassigned, TOYA 350.1.13.10 ity of [place] [facility] 4.2.7.2.686 [place] [phone] [address] 2019-04-08 2019-04-08 Office Lydia UNIVERSIT 1.2.840.114 72 [id number] Univers 08:43:26 14:05:14 Visit Trish Y 350.1.13.10 it y of NATIONAL 4.2.7.2.686 [place] B[facility] [phone] [facility] BLDG. [address] 2019-04-06 2019-04-06 Refill [facility] 1.2.840.114 [id number] Univers 00:00:00 00:00:00 Christian santiago FAMILY 350.1.13.10 ity of [place] - [phone] [address] 2019-04-04 2019-04-04 Telephone [facility] 1.2.521.288 [id number] 7108 Univers 00:00:00 00:00:00 Tremaine FAMILY 350.1.13.10 it y of [place] MEDICINE 4.2.7.2.686 [place] - [phone] [address] 2019-04-02 2019-04-02 Office Josashli [facility] 1.2.840.114 [id number] Univers 08:49:20 09:04:20 Visit sudeepRocael Y 350.1.13.10 ity of N[place] 4.2.7.2.686 [place] [address] [phone] [facility] [address]. [address] 2019-04-02 2019-04-02 Orders Doctor PULLIAM 1.2.840.114 [id number] Univers 00:00:00 00:00:00 Only Unassigned, TOYA 350.1.13.10 ity of [place] [facility] 4.2.7.2.686 [place] [phone] [address] 2019-03-30 2019-03-30 Refill Doctor UNIVERS 1.2.538.217 [id number] Univers 00:00:00 00:00:00 Unassigned, Y HEALTH 350.1.13.10 it[phone] [address] 2019-03-30 2019-03-30 Orders Doctor REYES 1.2.840.114 [id number] Univers 00:00:00 00:00:00 Only Unassigned, TOYA 350.1.13.10 ity of [place] [facility] 4.2.7.2.686 [place] [phone] [address] 2019-03-25 2019-03-25 Telephone Kaya Junior UNIVERSIT 1.2.840.11 4 [id number] Univers 00:00:00 00:00:00 Y HEALTH 350.1.13.10 i [place] [phone] [address] 2019-03-24 2019-03-24 Office NILDA Crystal 1.2.377.491 [id number] Univers 15:52:23 16:39:22 Visit Art Y HEALTH 350.1.13.10 ity of [place] CL[place]ICS [place] [place] [phone] [facility] [address] 2019-03-24 2019-03-24 Orders Doctor REYES 1.2.840.114 [id number] Univers 00:00:00 00:00:00 Only Unassigned, TOYA 350.1.13.10 ity of [place] [facility] 4.2.7.2.686 [place] [phone] [address] 2019-03-21 2019-03-21 Telephone Tyrell [facility] 1.2.191.113 [id number] Univers 00:00:00 00:00:00 Tremaine FAMILY 350.1.13.10 it y of [place] MEDICINE 4.2.7.2.686 [place] - [phone] [address] 2019-03-20 2019-03-20 Office Tremaine Santillan [facility] 1.2.8 40.114 [id number] Univers 12:52:23 14:38:10 Visit Perla, Pati J FAMILY 350.1.13.10 ity of MEDICINE 4.2.7.2.[place] - [phone] [address] 2019-03-20 2019-03-20 Orders Doctor REYES 1.2.840.114 [id number] Univers 00:00:00 00:00:00 Only Unassigned, TOYA 350.1.13.10 ity of [place] [facility] 4.2.7.2.686 [place] [phone] [address] 2019-03-18 2019-03-18 Office Petty Gibbsm [facility] 1.2.840.114 [id number] Univers 14:24:32 16:34:40 Visit Lawrence Jayne Madrigal [facility] 350.1.13.10 it[place] of [place] [phone] [address] 2019-03-18 2019-03-18 Orders Doctor REYES 1.2.840.114 [id number] Univers 00:00:00 00:00:00 Only Unassigned, TOYA 350.1.13.10 ity of [place] [facility] 4.2.7.2.686 [place] [phone] [address] 2019-03-17 2019-03-17 Orders Doctor REYES 1.2.840.114 [id number] Univers 00:00:00 00:00:00 Only Unassigned, TOYA 350.1.13.10 ity of [place] [facility] 4.2.7.2.686 [place] [phone] [address] 2019-03-16 2019-03-16 Telephone [facility] 1.2.840.114 [id number] Univers 00:00:00 00:00:00 sa, Christian FAMILY 350.1.13.10 it[place] - [phone] [address] 2019-03-16 2019-03-16 Telephone [facility] 1.2.840.114 [id number] Univers 00:00:00 00:00:00 sa, Christian FAMILY 350.1.13.10 ity [place] - [phone] [address] 2019-03-13 2019-03-13 Orders Doctor REYES 1.2.840.114 [id number] Univers 00:00:00 00:00:00 Only Unassigned, TOYA 350.1.13.10 ity of [place] [facility] 4.2.7.2.[phone] [facility] [address] 2019-03-11 2019-03-11 Abstract Kaya Junior UNIVERSIT 1.2.840.114 [id number] Univers 00:00:00 00:00:00 Y HEALTH 350.1.13.10 i ty [place] [place] [phone] [facility] [address] 2019-02-16 2019-02-16 Emergency X RAMONA [facility] ERT [id number] Univers 18:49:33 22:11:00 MINA [facility] 2019-02-12 2019-02-14 [facility] [id number] Univers 12:45:58 17:35:00 DONA [facility] 2019-02-11 2019-02-11 Office Oscar Gibbs UNIVERSIT 1.2.840.114 [id number] Univers 14:49:27 16:34:54 Visit Lawrence Jayne Busch Y HEALTH 350.1.13.10 ity of CL[place] [place] [id number] [facility] [address] 2019-02-10 2019-02-10 Orders Doctor REYES 1.2.840.114 [id number] Univers 00:00:00 00:00:00 Only Unassigned, TOYA 350.1.13.10 ity of [place] [facility] 4.2.7.2.686 [place] [phone] [address] 2019-01-16 2019-01-17 Observatio nullFlavo [facility] [id number] [id number] Memoria 20:14:12 03:33:00 chrystal Marshall 07 l [facility] 2019-01-16 2019-01-17 Observatio nullFlavo [facility] 4003 [id number] Memoria 20:14:12 03:33:00 n [facility] 07 l [facility] 2019-01-16 2019-01-16 Outpatient Christian MHSE MHSE [id number] 14:14:12 21:33:00 Jake Quintanilla [facility] 2019-01-16 2019-01-16 Outpatient E MHSE MED [id number] 17:45:00 17:45:00 [facility] 2018-11-18 2018-11-18 Reggie Pena [facility] 1.2.840.114 [id number] Univers 00:00:00 00:00:00 Jordi FAMILY 350.1.13.10 it y of [facility] MEDICINE 4.2.7.2.686 [place] - [phone] [address] 2018-11-13 2018-11-13 Literacy Specialist Lab, [facility] [address] [facility] 1 .2.840.114 [id number] Univers 07:50:27 08:05:27 Visit Kirk Cervantes 350.1.13.10 ity of MEDICINE 4.2.7.2.686 [place] - [phone] [address] 2018-11-12 2018-11-12 Literacy Special[address] [facility] UNIVERSIT 1.2.840.114 7 [id number] Univers 14:51:21 14:59:40 Visit Kirk Cervantes HEALTH 350.1.13.10 ity of CL[place]ICS [place] [place] [address] [facility] [address] 2018-11-12 2018-11-12 Office Kaya Junior UNIVERSIT 1.2.840.114 [id number] Univers 13:13:23 14:45:33 Visit Kirk Cervantes HEALTH 350.1.13.10 ity of CL[place] [place] [id number] [facility] [address] 2018-11-11 2018-11-11 Office Lian, UNIVERSIT 1.2.840.114 70 [id number] Univers 14:23:35 14:53:35 Visit Benny Madrigal HEALTH 350.1.13.10 i ty of CL[place] [place] [id number] [facility] [address] 2018-11-06 2018-11-06 Literacy Specialist Lab, [facility] [address] [facility] 1 .2.840.114 [id number] Univers 12:58:42 13:13:42 Visit Jayne Amos 350.1.13.10 ity of MEDICINE 4.2.7.2.[place] - [phone] [address] 2018-11-05 2018-11-05 Refill Ezra, [facility] 1.2.164.978 [id number] Univers 00:00:00 00:00:00 Pulmonary Y HEALTH 350.1.13.10 ity of CL[place]ICS [place] [place] [id number] [facility] [address] 2018-11-05 2018-11-05 Refindy Kaye [facility] 1.2.025.503 [id number] Univers 00:00:00 00:00:00 Conner P Y HEALTH 350.1.13.10 i ty of CL[place] [place] [phone] [facility] [address] 2018-10-30 2018-10-30 Telephone NILDA Amos 1.2.840.114 [id number] Univers 00:00:00 00:00:00 Shancy K Y HEALTH 350.1.13.10 ity of CL[place]ICS [place] [place] [address] [facility] [address] 2018-10-28 2018-10-28 Refindy Badillo [facility] 1.2.840.114 [id number] Univers 00:00:00 00:00:00 Dona Robertson FAMILY 350.1.13.10 i ty of MEDICINE 4.2.7.2.[place] - [phone] [address] 2018-10-22 2018-10-22 Letter NILDA Amos 1.2.259.801 [id number] Univers 00:00:00 00:00:00 (Out) Edwincy K Y HEALTH 350.1.13.10 [place] [id number] [address] 2018-10-22 2018-10-22 Patient NILDA Amos 1.2.563.462 [id number] Univers 00:00:00 00:00:00 [facility] 350.1.13.10 [facility] 4.2.7.2.686 Jose Maria bowen [phone] [address] 2016-02-03 2016-02-03 Outpatient MHIE MHIE [id number] Memoria 15:15:00 15:15:00 10 Rolando 2016-02-03 2016-02-03 Outpatient MHIE MHIE [id number] Memoria 15:15:00 15:15:00 10 [facility] 2015-10-11 2015-10-11 Outpatient MHIE MHIE [id number] Memoria 15:15:00 15:15:00 09 [facility] 2015-10-11 2015-10-11 Outpatient MHIE MHIE [id number] Memoria 15:15:00 15:15:00 09 [facility] 2015-10-07 2015-10-07 Outpatient MHIE MHIE [id number] Memoria 15:30:00 15:30:00 06 soraya [place] 2015-10-07 2015-10-07 Outpatient MHIE MHIE [id number] Memoria 15:30:00 15:30:00 06 [facility] 2015-09-28 2015-09-29 Outpatient nullFlavo [facility] [id number] [id number] Memoria 12:48:00 04:59:00 ab Marshall 09 [facility] 2015-09-28 2015-09-29 Outpatient nullFlavo [facility] [id number] [id number] Memoria 12:48:00 04:59:00 ab Marshall 09 [facility] 2015-09-28 2015-09-28 Outpatient Josh MHSE MHSE [id number] 07:48:00 23:59:00 Pati Carmen Alyx 2015-09-21 2015-09-21 Bedded nullFlavo [facility] [id number] Memoria 13:30:00 16:32:00 Outpatient ab Marshall [address] [place] [address] 2015-09-21 2015-09-21 Bedded nullFlavo [facility] [id number] Memoria 13:30:00 16:32:00 Outpatient ab Marshall [address] [place] [address] 2015-09-21 2015-09-21 Outpatient Lettyya MHSE MHSE [id number] 08:30:00 11:32:00 Jose Angel madrigal 2015-09-13 2015-09-13 Outpatient MHIE MHIE [id number] Memoria 09:00:00 09:00:00 08 soraya Rolando 2015-09-13 2015-09-13 Outpatient MHIE MHIE [id number] Memoria 09:00:00 09:00:00 08 soraya Marshall 2015-08-09 2015-08-09 Outpatient MHIE MHIE [id number] Memoria 10:15:00 10:15:00 07 soraya Marshall 2015-08-09 2015-08-09 Outpatient MHIE MHIE [id number] Memoria 10:15:00 10:15:00 07 soraya [place] 2015-07-20 2015-07-21 Outpatient nullFlavo [facility] [id number] Memoria 12:02:00 04:59:00 r Rolando 03 [facility] 2015-07-20 2015-07-21 Outpatient nullFlavo [facility] [id number] [id number] Memoria 12:02:00 04:59:00 r Rolando 03 [facility] 2015-07-20 2015-07-20 Outpatient Avel, MHSE MHSE [id number] 07:02:00 23:59:00 Gideon E 03 2015-06-06 2015-06-07 Outpatient [facility]Flavo [facility] [id number] [id number] Memoria 21:10:00 04:59:00 r [place] 95 [facility] 2015-06-06 2015-06-07 Outpatient nullFlavo [facility] [id number] [id number] Memoria 21:10:00 04:59:00 r Rol[place] 95 [facility] 2015-06-06 2015-06-06 Outpatient Josh MHSE MHSE [id number] 16:10:00 23:59:00 Pati Wisdom 2015-06-03 2015-06-03 Outpatient MHIE MHIE [id number] Memoria 15:15:00 15:15:00 05 soraya Marshall 2015-06-03 2015-06-03 Outpatient MHIE MHIE [id number] Memoria 15:15:00 15:15:00 05 soraya Marshall 2015-02-15 2015-02-15 Outpatient MHIE MHIE [id number] Memoria 15:15:00 15:15:00 04 soraya Rolando 2015-02-15 2015-02-15 Outpatient MHIE MHIE [id number] Memoria 15:15:00 15:15:00 04 soraya Rolando 2015-01-20 2015-01-20 Outpatient MHIE MHIE [id number] Memoria 14:30:00 14:30:00 01 soraya Rolando 2015-01-20 2015-01-20 Outpatient MHIE MHIE [id number] Memoria 14:30:00 14:30:00 01 soraya Rolando 2014-12-07 2014-12-07 Outpatient MHIE MHIE [id number] Memoria 14:30:00 14:30:00 02 soraya Rolando 2014-12-07 2014-12-07 Outpatient MHIE MHIE [id number] Memoria 14:30:00 14:30:00 02 soraya [place] 2014-10-26 2014-11-25 OP Therapy nullFlavo [facility] [id number] Memoria 20:40:00 04:59:00 Patients r [place] 02 [place] 2014-10-26 2014-11-25 OP Therapy nullFlavo SMR [id number] Memoria 20:40:00 04:59:00 Patients r [facility] 02 soraya Mcnulty Rolandoaby Delaney 2014-10-26 2014-11-24 Outpatient Josh, 2.16.840. 2.16.840.1. [id number] 15:40:00 23:59:00 Pati 1.421497. [id number] 02 Alyx 3.615.52 5.52 2014-11-23 2014-11-24 Outpt Diag nullFlavo [facility] [id number] Memoria 17:39:00 04:59:00 Services r Outpatient 00 l Imaging - [place] chrystal Piña 2014-11-23 2014-11-24 Outpt Diag nullFlavo [facility] [id number] Memoria 17:39:00 04:59:00 Services r Outpatient 00 l [facility] - [place] 2014-11-23 2014-11-23 Outpatient Marcio JOHNNA [facility] [id number] 12:39:00 23:59:00 Brennan 00 2014-11-05 2014-11-05 Outpatient MHIE IE [id number] Memoria 08:00:00 08:00:00 03 soraya Rolando 2014-11-05 2014-11-05 Outpatient MHIE MHIE [id number] Memoria 08:00:00 08:00:00 03 soraya Rolando 2014-09-23 2014-10-23 OP Therapy nullFlavo [facility] [id number] Memoria 19:45:00 04:59:00 Patients r [facility] 01 l [facility] 2014-09-23 2014-10-23 OP Therapy nullFlavo [facility] [id number] Memoria 19:45:00 04:59:00 Patients r [facility] 01 l [facility] 2014-09-23 2014-10-22 Outpatient Josh, 2.16.840. 2.16.840.1. [id number] 14:45:00 23:59:00 Pati 1.369987. 957374.3.61 01 Alyx 3.615.52 5.52 2014-09-17 2014-09-17 Outpatient IE IE [id number] Memoria 09:30:00 09:30:00 00 soraya Marshall 2014-09-17 2014-09-17 Outpatient MHIE MHIE [id number] Memoria 09:30:00 09:30:00 00 soraya Marshall 2013-12-08 2013-12-[address] [facility] [id number] Memoria 17:41:00 04:59:00 r Rol[place] 00 [facility] 2013-12-08 2013-12-[address] [facility] 4003 [id number] Memoria 17:41:00 04:59:00 r Rolando 00 [facility] 2013-12-08 2013-12-08 Outpatient Josh, 2.16.840. 2.16.840.1. [id number] 12:41:00 23:59:00 Pati 1.813873. [id number] Alyx 3.615.0.1 5.0.599 34 9545-10-01 2013-12-03 Outpatient nullFlavo [facility] 4003 [id number] Memoria 18:35:00 04:59:00 r [place] 74 [facility] 2013-12-02 2013-12-03 Outpatient nullFlavo [facility] 4003 [id number] Memoria 18:35:00 04:59:00 r Rolando 74 l [facility] 2013-12-02 2013-12-02 Outpatient Josh 2.16.840. 2.16.840.1. [id number] 13:35:00 23:59:00 Pati 1.622678. [id number] 74 Alyx 3.615.0.1 5.0.121 17 8435-12-29 2012-03-01 Outpatient nullFlavo [id number] Memoria 21:00:00 23:59:00 r [facility] 03 soraya Marshall 2012-03-01 2012-03-01 Outpatient nullFlavo [id number] Memoria 21:00:00 23:59:00 r [facility] 03 soraya Marshall 2011-04-05 2011-04-05 Outpatient nullFlavo [id number] Memoria 17:52:00 23:59:00 r [facility] 02 soraya Marshall 2011-04-05 2011-04-05 Outpatient nullFlavo [id number] Memoria 17:52:00 23:59:00 r [facility] 02 [place] 2011-03-01 2011-03-01 Outpatient nullFlavo [id number] Memoria 15:52:00 15:52:00 r [facility] 63 soraya [place] 2011-03-01 2011-03-01 Outpatient nullFlavo [id number] Memoria 15:52:00 15:52:00 r [facility] Jessica Marshall Results Test Description Test Time Test Comments Results Result Comments Source POCT GLUCOSE (AUTOMATED) 2022-10-23 22:00:03 Test Item Value Reference Range Interpretation Comme nts POCT GLU (test code = 3320915148) 198 mg/dL 70-110 H Lab Interpretation (test code = 27867-2) Abnormal [facility] GLUCOSE (AUTOMATED)2022-10-23 17:23:30 Test Item Value Reference Range Interpretation Comments POCT GLU (test code = 7220975945) 243 mg/dL 70-110 H Lab Interpretation (test code = Abnormal 85159-8) [facility] GLUCOSE (AUTOMATED)2022-10-23 13:09:46 Test Item Value Reference Range Interpretation Comments POCT GLU (test code = 0108028312) 104 mg/dL 70-110 Lab Interpretation (test code = Normal 99012-6) [facility] GLUCOSE (AUTOMATED)2022-10-23 02:27:00 Test Item Value Reference Range Interpretation Comments POCT GLU (test code = [id number]) 206 mg/dL 70-110 H Lab Interpretation (test code = Abnormal 53631-5) [facility] GLUCOSE (AUTOMATED)2022-10-22 21:47:10 Test Item Value Reference Range Interpretation Comments POCT GLU (test code = [id number]) 207 mg/dL 70-110 H Lab Interpretation (test code = Abnormal 59151-2) [facility] GLUCOSE (AUTOMATED)2022-10-22 17:23:03 Test Item Value Reference Range Interpretation Comments POCT GLU (test code = 1052872415) 225 mg/dL 70-110 H Lab Interpretation (test code = Abnormal 58007-2) [facility] GLUCOSE (AUTOMATED)2022-10-22 13:58:00 Test Item Value Reference Range Interpretation Comments POCT GLU (test code = [id number]) 146 mg/dL 70-110 H Lab Interpretation (test code = Abnormal 07854-8) [facility] GLUCOSE (AUTOMATED)2022-10-22 01:31:33 Test Item Value Reference Range Interpretation Comments POCT GLU (test code = 5969766880) 208 mg/dL 70-110 H Lab Interpretation (test code = Abnormal 13205-6) [facility] GLUCOSE (AUTOMATED)2022-10-21 22:13:38 Test Item Value Reference Range Interpretation Comments POCT GLU (test code = [id number]) 109 mg/dL 70-110 Lab Interpretation (test code = Normal 15111-6) [facility] GLUCOSE (AUTOMATED)2022-10-21 17:58:28 Test Item Value Reference Range Interpretation Comments POCT GLU (test code = 6191561020) 170 mg/dL 70-110 H Lab Interpretation (test code = Abnormal 37433-3) [facility] GLUCOSE (AUTOMATED)2022-10-21 11:02:22 Test Item Value Reference Range Interpretation Comments POCT GLU (test code = 1336144992) 103 mg/dL 70-110 Lab Interpretation (test code = Normal 67903-3) [facility] GLUCOSE (AUTOMATED)2022-10-21 10:36:55 Test Item Value Reference Range Interpretation Comments POCT GLU (test code = 4825714376) 106 mg/dL 70-110 Lab Interpretation (test code = Normal 13390-1) [facility] GLUCOSE (AUTOMATED)2022-10-21 04:34:49 Test Item Value Reference Range Interpretation Comments POCT GLU (test code = 2286564565) 114 mg/dL 70-110 H Lab Interpretation (test code = Abnormal 48068-8) [facility] GLUCOSE (AUTOMATED)2022-10-20 22:15:58 Test Item Value Reference Range Interpretation Comments POCT GLU (test code = 3444726795) 160 mg/dL 70-110 H Lab Interpretation (test code = Abnormal 74777-1) [facility] [id number] 21:53:23 Test Item Value Reference Range Interpretation Comments LACTIC ACID (test code = 1.26 mmol/L 0.50-2.20 1146373288) Lab Interpretation (test code = Normal 29147-5) [facility] [id number] 18:35:26 Test Item Value Reference Range Interpretation Comments PH (test code = 2) 7.34 7.35-7.45 L PCO2 (test code = 47 See_Comment H [Automate d 4047747353) message] The sy stem which generated this result transmitted reference range : 35 - 45 mmHg. The reference range was not used to interpret this result as normal/abnormal . PO2 (test code = 64 See_Comment L [Automated 5832556345) message] The sy stem which generated this result transmitted reference range : 80 - 100 mmHg. The reference range was not used to interpret this result as normal/abnormal . HCO3 (test code = 25 See_Comment [Automate d 5834613661) message] The sy stem which generated this result transmitted reference range : 22 - 26 mEq/L. The reference range was not used to interpret this result as normal/abnormal . BE (test code = -1.0 See_Comment [Automated 9571596035) message] The sy stem which generated this result transmitted reference range : -3.0 - 3.0 mEq/ L. The reference r carolynn was not used to interpret this result as normal/abnormal . LACTIC ACID (test code 2.46 mmol/L 0.50-2.20 H = 6467232499) Lab Interpretation Abnormal (test code = 86931-8) [facility] GLUCOSE (AUTOMATED)2022-10-20 17:00:47 Test Item Value Reference Range Interpretation Comments POCT GLU (test code = 1076903357) 102 mg/dL 70-110 Lab Interpretation (test code = Normal 31678-1) [facility] GLUCOSE (AUTOMATED)2022-10-20 11:11:09 Test Item Value Reference Range Interpretation Comments POCT GLU (test code = 9894133077) 105 mg/dL 70-110 Lab Interpretation (test code = Normal 07085-0) [facility] GLUCOSE (AUTOMATED)2022-10-20 04:56:18 Test Item Value Reference Range Interpretation Comments POCT GLU (test code = 6865565718) 143 mg/dL 70-110 H Lab Interpretation (test code = Abnormal 85185-5) [facility] GLUCOSE (AUTOMATED)2022-10-19 23:09:26 Test Item Value Reference Range Interpretation Comments POCT GLU (test code = 0076598246) 153 mg/dL 70-110 H Lab Interpretation (test code = Abnormal 47802-2) [facility] [id number] 21:55:38 Test Item Value Reference Range Interpretation Comments TROPONIN I (test code = 0.073 ng/mL <=0.034 H 8084279865) TOÑA (test code = TOÑA) Reference (Normal) [...] biotin. Lab Interpretation Abnormal (test code = 44115-1) [facility] GLUCOSE (AUTOMATED)2022-10-19 18:04:29 Test Item Value Reference Range Interpretation Comments POCT GLU (test code = 7353548100) 197 mg/dL 70-110 H Lab Interpretation (test code = Abnormal 45919-5) [facility] HospitalProthrom[facility] Time / [id number] 17:42:25 Test Item Value Reference Range Interpretation Comments PROTIME PATIENT (test 9.7 See_Comment L [Auto mated message] code = 5964-2) The system wh ich generated this result transmitted ref erence range: 10.1 - 1 2.6 Seconds. The reference range was not used to int erpret this result as normal/abnormal . INR (test code = 6301-6) 0.9 Nor mal INR <1.1; Warfarin Therap eutic range 2.0 to 3. 0 or 2.5 to 3.5, dep ending upon the indica tions. Lab Interpretation (test Abnormal code = 55588-7) [facility] + Lactic [id number] 16:22:44 Test Item Value Reference Range Interpretation Comments PH (test code = 2) 7.33 7.35-7.45 L PCO2 (test code = 51 See_Comment H [Automate d 1015310748) message] The sy stem which generated this result transmitted reference range : 35 - 45 mmHg. The reference range was not used to interpret this result as normal/abnormal . PO2 (test code = 123 See_Comment H [Automated 4113355253) message] The sy stem which generated this result transmitted reference range : 80 - 100 mmHg. The reference range was not used to interpret this result as normal/abnormal . HCO3 (test code = 27 See_Comment H [Automate d 7223458541) message] The sy stem which generated this result transmitted reference range : 22 - 26 mEq/L. The reference range was not used to interpret this result as normal/abnormal . BE (test code = 0.1 See_Comment [Automated 9445715227) message] The sy stem which generated this result transmitted reference range : -3.0 - 3.0 mEq/ L. The reference r carolynn was not used to interpret this result as normal/abnormal . THB (test code = 11.4 g/dL 13.5-18.0 L 7976070469) %O2HB (test code = 97.2 % 94.0-99.0 0720251034) %COHB ART (test code = 0.3 % 0.0-1.5 9799008669) %METHB ART (test code = 0.5 % 0.4-1.5 6002835367) VOL%O2 ART (test code = 15.8 % 15.0-23.0 3293084999) NA (test code = 141 mmol/L 135-145 1880084279) K+ (test code = 4.5 mmol/L 3.5-5.0 0542572753) AC CA IONZ (test code = 5.00 mg/dL 4.50-5.30 9258359972) GLUCOSE (test code = 192 mg/dL 70-110 H 7756811739) LACTIC ACID (test code 1.01 mmol/L 0.50-2.20 = 5291042684) Lab Interpretation Abnormal (test code = 07050-8) [facility] [id number] 16:05:04 Test Item Value Reference Range Interpretation Comments TROPONIN I (test code = 0.087 ng/mL <=0.034 H 5167735876) TOÑA (test code = TOÑA) Reference (Normal) [...] biotin. Lab Interpretation Abnormal (test code = 40404-5) [facility]20[facility] 15:55:20 Test Item Value Reference Range Interpretation Comments MAGNESIUM (test code = 3921585679) 2.9 mg/dL 1.7-2.4 H Lab Interpretation (test code = Abnormal 44422-7) [facility]20[facility] 15:55:20 Test Item Value Reference Range Interpretation Comments PHOSPHORUS (test code = 6844408779) 3.4 mg/dL 2.5-5.0 Lab Interpretation (test code = Normal 37121-5) [facility] GLUCOSE (AUTOMATED)2022-10-19 14:33:39 Test Item Value Reference Range Interpretation Comments POCT GLU (test code = 8720568939) 196 mg/dL 70-110 H Lab Interpretation (test code = Abnormal 38970-9) [facility] GLUCOSE (AUTOMATED)2022-10-09 22:29:51 Test Item Value Reference Range Interpretation Comments POCT GLU (test code = 2480556694) 265 mg/dL 70-110 H Lab Interpretation (test code = Abnormal 11795-3) [facility] GLUCOSE (AUTOMATED)2022-10-09 21:51:44 Test Item Value Reference Range Interpretation Comments POCT GLU (test code = 1543927819) 241 mg/dL 70-110 H Lab Interpretation (test code = Abnormal 83442-6) [facility] GLUCOSE (AUTOMATED)2022-10-09 16:41:51 Test Item Value Reference Range Interpretation Comments POCT GLU (test code = 0966461049) 212 mg/dL 70-110 H Lab Interpretation (test code = Abnormal 54736-0) [facility] GLUCOSE (AUTOMATED)2022-10-09 13:19:19 Test Item Value Reference Range Interpretation Comments POCT GLU (test code = 7224876523) 153 mg/dL 70-110 H Lab Interpretation (test code = Abnormal 54600-5) [facility] GLUCOSE (AUTOMATED)2022-10-09 02:05:16 Test Item Value Reference Range Interpretation Comments POCT GLU (test code = 2290449749) 165 mg/dL 70-110 H Lab Interpretation (test code = Abnormal 01100-6) [facility] HospitalGlycosylated Hemoglobin (A1C)2022-10-08 22:19:13 Test Item Value Reference Range Interpretation Comments HGB A1C (test code = 6.0 % 4.0-5.7 H 4548-4) TOÑA (test code = TOÑA) Reference RangesNormal: <5.7%Prediabetes: 5.7 - 6.4%Diabetes: > 6.5% Lab Interpretation (test Abnormal code = 53845-8) [facility] GLUCOSE (AUTOMATED)2022-10-08 21:55:20 Test Item Value Reference Range Interpretation Comments POCT GLU (test code = 1805798542) 95 mg/dL 70-110 Lab Interpretation (test code = Normal 66007-6) [facility] GLUCOSE (AUTOMATED)2022-10-08 20:05:51 Test Item Value Reference Range Interpretation Comments POCT GLU (test code = 7261232440) 126 mg/dL 70-110 H Lab Interpretation (test code = Abnormal 86221-1) [facility]N-[facility]MINAL [id number] 13:47:23 Test Item Value Reference Range Interpretation Comments NT-proBNP (test code = 1080 pg/mL <=125 H 59026-1) TOÑA (test code = TOÑA) Positive: Heart Failure Likely Lab Interpretation (test Abnormal code = 73325-6) [facility] 11:34:36 Test Item Value Reference Range Interpretation Comments MAGNESIUM (test code = 3725282476) 2.3 mg/dL 1.7-2.4 Lab Interpretation (test code = Normal 56360-3) [facility] METABOLIC PANEL (NA, K, CL, CO2, GLUCOSE, BUN, CREATININE, CA)2022-10-08 11:34:15 Test Item Value Reference Range Interpretation Comments NA (test code = 138 mmol/L 135-145 3565947483) K (test code = 4.1 mmol/L 3.5-5.0 0517310226) CL (test code = 96 mmol/L 98-108 L 6664314366) CO2 TOTAL (test code = 38 mmol/L 23-31 H 7097485349) AGAP (test code = 4 2-16 7370435405) BUN (test code = 54 mg/dL 7-23 H 8852099859) GLUCOSE (test code = 118 mg/dL 70-110 H 2419331464) CREATININE (test code = 2.96 mg/dL 0.60-1.25 H 3422947562) CALCIUM (test code = 8.9 mg/dL 8.6-10.6 0145980411) eGFR (test code = 21.1 mL/min/1.73m2 9068601213) TOÑA (test code = TOÑA) Association of [...] tests). Lab Interpretation Abnormal (test code = 15540-7) [facility] WITH [id number] 11:32:39 Test Item Value Reference Range Interpretation Comments WBC (test code = 7.26 See_Comment [Automated 9246-2) message] The sy stem which generated this result transmitted reference range : 4.20 - 10.70 10*3/?L. The reference range was not used to interpret this result as normal/abnormal . RBC (test code = 3.39 See_Comment L [Automated 063-8) message] The sy stem which generated this [...] (test code = 55.5 fL 38.5-51.6 H 11328-8) RDW-CV (test code = 14.7 % 12.1-15.4 788-0) PLT (test code = 172 See_Comment [Automated 777-3) message] The sy stem which generated this result transmitted reference range : 150 - 328 10*3/ ?L. The reference r carolynn was not used to interpret this result as normal/abnormal . MPV (test code = 10.7 fL 9.8-13.0 24930-7) NRBC/100 WBC (test 0.0 See_Comment [Automat ed code = 2286767598) message] The system which generated this result transmitted reference range : 0.0 - 10.0 /100 WBCs. The refer ence range was not u sed to interpret th is result as normal/abnormal . NRBC x10^3 (test code See_Comment [Auto mated = 4143369098) message] The s ystem which generated this result transmitted reference range : 10*3/?L. The reference range was not used to interpret this result as normal/abnormal . GRAN MAT (NEUT) % 63.8 % (test code = 770-8) IMM GRAN % (test code 0.40 % = 4072765787) LYMPH % (test code = 25.1 % 736-9) MONO % (test code = 8.5 % 5905-5) EOS % (test code = 1.5 % 713-8) BASO % (test code = 0.7 % 706-2) GRAN MAT x10^3(ANC) 4.63 10*3/uL 1.99-6.95 (test code = 3374898558) IMM GRAN x10^3 (test 0.03 10*3/uL 0.00-0.06 code = 6653878136) LYMPH x10^3 (test code 1.82 10*3/uL 1.09-3.23 = 731-0) MONO x10^3 (test code 0.62 10*3/uL 0.36-1.02 = 742-7) EOS x10^3 (test code = 0.11 10*3/uL 0.06-0.53 711-2) BASO x10^3 (test code 0.05 10*3/uL 0.01-0.09 = 704-7) Lab Interpretation Abnormal (test code = 78003-9) [facility] METABOLIC PANEL (NA, K, CL, CO2, GLUCOSE, BUN, CREATININE, CA)2022-10-07 10:59:58 Test Item Value Reference Range Interpretation Comments NA (test code = 139 mmol/L 135-145 8444095156) K (test code = 4.2 mmol/L 3.5-5.0 3809963296) CL (test code = 97 mmol/L 98-108 L 2815787818) CO2 TOTAL (test code = 38 mmol/L 23-31 H 5011430180) AGAP (test code = 4 2-16 2386675224) BUN (test code = 52 mg/dL 7-23 H 3026453917) GLUCOSE (test code = 72 mg/dL 70-110 5885890548) CREATININE (test code = 2.60 mg/dL 0.60-1.25 H 3269555974) CALCIUM (test code = 9.0 mg/dL 8.6-10.6 6373194251) eGFR (test code = 24.5 mL/min/1.73m2 2032547484) TOÑA (test code = TOÑA) Association of [...] tests). Lab Interpretation Abnormal (test code = 02336-3) [facility] 10:53:00 Test Item Value Reference Range Interpretation Comments MAGNESIUM (test code = 0436068194) 2.2 mg/dL 1.7-2.4 Lab Interpretation (test code = Normal 48836-1) [facility] [id number] 20:27:21 Test Item Value Reference Range Interpretation Comments TROPONIN I (test code = 0.023 ng/mL <=0.034 0089389756) TOÑA (test code = TOÑA) Reference (Normal) [...] biotin. Lab Interpretation Normal (test code = 82258-3) [facility]. METABOLIC PANEL (86937)2022-10-05 20:25:20 Test Item Value Reference Range Interpretation Comments NA (test code = 140 mmol/L 135-145 6383864699) K (test code = 5.0 mmol/L 3.5-5.0 2189387661) CL (test code = 97 mmol/L 98-108 L 2689605248) CO2 TOTAL (test code = 40 mmol/L 23-31 H 8920819738) AGAP (test code = 3 2-16 5634208487) BUN (test code = 37 mg/dL 7-23 H 6802785781) GLUCOSE (test code = 116 mg/dL 70-110 H 9060929045) CREATININE (test code = 2.19 mg/dL 0.60-1.25 H 9958088476) TOTAL BILI (test code = 0.5 mg/dL 0.1-1.0 6222339348) CALCIUM (test code = 8.9 mg/dL 8.6-10.6 9381768508) T PROTEIN (test code = 6.4 g/dL 6.3-8.2 7595582593) ALBUMIN (test code = 3.7 g/dL 3.5-5.0 0501667625) ALK PHOS (test code = 67 U/L 34-122 9613138625) ALTv (test code = 18 U/L 5-50 1742-6) AST(SGOT) (test code = 25 U/L 13-40 0835229850) eGFR (test code = 29.8 mL/min/1.73m2 1260095713) OTÑA (test code = TOÑA) Association of Glomerular [...] tests). Lab Interpretation Abnormal (test code = 91809-8) [facility] [id number] 20:25:00 Test Item Value Reference Range Interpretation Comments NT-proBNP (test code = 1580 pg/mL <=125 H 04642-5) TOÑA (test code = TOÑA) Positive: Heart Failure Likely Lab Interpretation (test Abnormal code = 69661-7) [facility] 20:18:58 Test Item Value Reference Range Interpretation Comments MAGNESIUM (test code = 8282473111) 2.2 mg/dL 1.7-2.4 Lab Interpretation (test code = Normal 06925-4) [facility] WITH [id number] 20:11:21 Test Item Value Reference Range Interpretation [...] (test code = 55.3 fL 38.5-51.6 H 91511-4) RDW-CV (test code = 14.7 % 12.1-15.4 788-0) PLT (test code = 192 See_Comment [Automated 777-3) message] The sy stem which generated this result transmitted reference range : 150 - 328 10*3/ ?L. The reference r carolynn was not used to interpret this result as normal/abnormal . MPV (test code = 9.7 fL 9.8-13.0 L 28559-5) NRBC/100 WBC (test 0.0 See_Comment [Automat ed code = 9278478226) message] The system which generated this result transmitted reference range : 0.0 - 10.0 /100 WBCs. The refer ence range was not u sed to interpret th is result as normal/abnormal . NRBC x10^3 (test code See_Comment [Auto mated = 1344851433) message] The s ystem which generated this result transmitted reference range : 10*3/?L. The reference range was not used to interpret this result as normal/abnormal . GRAN MAT (NEUT) % 67.9 % (test code = 770-8) IMM GRAN % (test code 0.30 % = 3339130839) LYMPH % (test code = 19.1 % 736-9) MONO % (test code = 7.1 % 5905-5) EOS % (test code = 4.6 % 713-8) BASO % (test code = 1.0 % 706-2) GRAN MAT x10^3(ANC) 4.13 10*3/uL 1.99-6.95 (test code = 3504999699) IMM GRAN x10^3 (test 0.00-0.06 code = 8344916587) LYMPH x10^3 (test code 1.16 10*3/uL 1.09-3.23 = 731-0) MONO x10^3 (test code 0.43 10*3/uL 0.36-1.02 = 742-7) EOS x10^3 (test code = 0.28 10*3/uL 0.06-0.53 711-2) BASO x10^3 (test code 0.06 10*3/uL 0.01-0.09 = 704-7) Lab Interpretation Abnormal (test code = 52863-4) [facility] HEMOGLOBIN A1C [id number] 16:38:00 Test Item Value Reference Range Interpretation Comments POCT HBA1C (test code = 4548-4) 6.1 % 4-6 A Lab Interpretation (test code = Abnormal 51762-1) [facility] HEMOGLOBIN A1C [id number] 16:38:00 Test Item Value Reference Range Interpretation Comments POCT HBA1C (test code = 4548-4) 6.1 % 4-6 A Lab Interpretation (test code = Abnormal 91521-7) [facility] HEMOGLOBIN A1C [id number] 16:38:00 Test Item Value Reference Range Interpretation Comments POCT HBA1C (test code = 4548-4) 6.1 % 4-6 A Lab Interpretation (test code = Abnormal 97201-3) [facility] HEMOGLOBIN A1C [id number] 16:38:00 Test Item Value Reference Range Interpretation Comments POCT HBA1C (test code = 4548-4) 6.1 % 4-6 A Lab Interpretation (test code = Abnormal 11177-6) [facility] HEMOGLOBIN A1C [id number] 16:38:00 Test Item Value Reference Range Interpretation Comments POCT HBA1C (test code = 4548-4) 6.1 % 4-6 A Lab Interpretation (test code = Abnormal 76607-5) [facility] HEMOGLOBIN A1C [id number] 16:38:00 Test Item Value Reference Range Interpretation Comments POCT HBA1C (test code = 4548-4) 6.1 % 4-6 A Lab Interpretation (test code = Abnormal 22223-0) [facility] GLUCOSE (AUTOMATED)2022-09-18 21:57:22 Test Item Value Reference Range Interpretation Comments POCT GLU (test code = 0525771981) 326 mg/dL 70-110 H Lab Interpretation (test code = Abnormal 97049-3) [facility] GLUCOSE (AUTOMATED)2022-09-18 17:22:53 Test Item Value Reference Range Interpretation Comments POCT GLU (test code = 6843596702) 288 mg/dL 70-110 H Lab Interpretation (test code = Abnormal 11505-3) [facility] GLUCOSE (AUTOMATED)2022-09-18 13:10:20 Test Item Value Reference Range Interpretation Comments POCT GLU (test code = 0527684129) 179 mg/dL 70-110 H Lab Interpretation (test code = Abnormal 62823-5) [facility] GLUCOSE (AUTOMATED)2022-09-18 01:48:01 Test Item Value Reference Range Interpretation Comments POCT GLU (test code = 5289325076) 202 mg/dL 70-110 H Lab Interpretation (test code = Abnormal 41235-5) [facility] LACTIC [id number] 22:20:50 Test Item Value Reference Range Interpretation Comments PH (test code = 7.34 7.32-7.42 1672045235) PCO2 JOHANNA (test code = 60 See_Comment H [Auto mated 7751753845) message] The sy stem which generated this result transmitted reference range : 41 - 51 mmHg. The reference range was not used to interpret this result as normal/abnormal . PO2 JOHANNA (test code = 59 See_Comment HH [Autom ated 9474126631) message] The sy stem which generated this result transmitted reference range : 25 - 40 mmHg. The reference range was not used to interpret this result as normal/abnormal . HCO3 JOHANNA (test code = 31 See_Comment H [Auto mated 5456626534) message] The sy stem which generated this result transmitted reference range : 24 - 28 mEq/L. The reference range was not used to interpret this result as normal/abnormal . AC VBE(BEAKER) (test 4.3 mEq/L code = 3238598800) THB JOHANNA (test code = 10.3 g/dL 13.5-18.0 L 7775635717) %O2HB JOHANNA (test code = 89.3 % 52.0-63.0 H 0395147714) %COHB JOHANNA (test code = 0.3 % 0.0-1.5 4987633486) %METHB JOHANNA (test code = 0.3 % 0.4-1.5 L 5338825921) VOL%O2 JOHANNA (test code = 13.0 % 6.0-12.0 H 8065370300) NA (test code = 139 mmol/L 135-145 4495510404) K+ (test code = 4.2 mmol/L 3.5-5.0 9574212533) AC CA IONZ (test code = 4.70 mg/dL 4.50-5.30 2657466075) GLUCOSE (test code = 129 mg/dL 70-110 H 9677143509) LACTIC ACID (test code 0.92 mmol/L 0.50-2.20 = 3716339091) Lab Interpretation Abnormal (test code = 85964-9) [facility] [id number] 21:21:10 Test Item Value Reference Range Interpretation Comments PH (test code = 7.32 7.32-7.42 2522488830) PCO2 JOHANNA (test code = 71 See_Comment H [Auto mated 9842162955) message] The sy stem which generated this result transmitted reference range : 41 - 51 mmHg. The reference range was not used to interpret this result as normal/abnormal . PO2 JOHANNA (test code = 49 See_Comment H [Autom ated 1402732109) message] The sy stem which generated this result transmitted reference range : 25 - 40 mmHg. The reference range was not used to interpret this result as normal/abnormal . HCO3 JOHANNA (test code = 36 See_Comment H [Auto mated 5047519208) message] The sy stem which generated this result transmitted reference range : 24 - 28 mEq/L. The reference range was not used to interpret this result as normal/abnormal . AC VBE(BEAKER) (test 7.6 mEq/L code = 4687930500) THB JOHANNA (test code = 10.8 g/dL 13.5-18.0 L 0085610991) %O2HB JOHANNA (test code = 83.3 % 52.0-63.0 H 0311003203) %COHB JOHANNA (test code = 0.6 % 0.0-1.5 6662454871) %METHB JOHANNA (test code = 0.3 % 0.4-1.5 L 3084844564) VOL%O2 JOHANNA (test code = 12.7 % 6.0-12.0 H 8184322903) NA (test code = 139 mmol/L 135-145 2622359795) K+ (test code = 4.2 mmol/L 3.5-5.0 6659039602) AC CA IONZ (test code = 4.60 mg/dL 4.50-5.30 4413835202) GLUCOSE (test code = 153 mg/dL 70-110 H 2910234760) LACTIC ACID (test code 1.04 mmol/L 0.50-2.20 = 7646493699) Lab Interpretation Abnormal (test code = 28914-8) [facility] [id number] 20:51:35 Test Item Value Reference Range Interpretation Comments TROPONIN I (test code = 0.040 ng/mL <=0.034 H 1953836293) TOÑA (test code = TOÑA) Reference (Normal) [...] biotin. Lab Interpretation Abnormal (test code = 23615-0) [facility] [id number] 20:49:11 Test Item Value Reference Range Interpretation Comments NT-proBNP (test code = 4340 pg/mL <=125 H 41427-4) TOÑA (test code = TOÑA) Positive: Heart Failure Likely Lab Interpretation (test Abnormal code = 30939-9) [facility] 20:40:33 Test Item Value Reference Range Interpretation Comments MAGNESIUM (test code = 7058652891) 2.1 mg/dL 1.7-2.4 Lab Interpretation (test code = Normal 08613-1) [facility]OLIC PAN[facility] (28123)2022-09-17 20:40:13 Test Item Value Reference Range Interpretation Comments NA (test code = 139 mmol/L 135-145 4540421415) K (test code = 4.4 mmol/L 3.5-5.0 2531529231) CL (test code = 97 mmol/L 98-108 L 7103816919) CO2 TOTAL (test code = 37 mmol/L 23-31 H 2505079782) AGAP (test code = 5 2-16 5824785925) BUN (test code = 50 mg/dL 7-23 H 3975742289) GLUCOSE (test code = 160 mg/dL 70-110 H 6441927642) CREATININE (test code = 2.99 mg/dL 0.60-1.25 H 0115685067) TOTAL BILI (test code = 0.5 mg/dL 0.1-1.0 3071105175) CALCIUM (test code = 8.4 mg/dL 8.6-10.6 L 9816059025) T PROTEIN (test code = 6.1 g/dL 6.3-8.2 L 7842351049) ALBUMIN (test code = 3.6 g/dL 3.5-5.0 3881719669) ALK PHOS (test code = 89 U/L 34-122 7831510962) ALTv (test code = 18 U/L 5-50 1742-6) AST(SGOT) (test code = 25 U/L 13-40 8010873252) eGFR (test code = 20.8 mL/min/1.73m2 2766684438) TOÑA (test code = TOÑA) Association of [...] tests). Lab Interpretation Abnormal (test code = 82849-0) [facility] 20:40:13 Test Item Value Reference Range Interpretation Comments LIPASE (test code = 4747805523) 97 U/L 0-220 Lab Interpretation (test code = Normal 32377-2) [facility] WITH [id number] 20:29:49 Test Item Value Reference Range Interpretation Comments WBC (test code = 7.51 See_Comment [Automated 6690-2) message] The sy stem [...] (test code = 59.1 fL 38.5-51.6 H 62790-8) RDW-CV (test code = 15.8 % 12.1-15.4 H 788-0) PLT (test code = 178 See_Comment [Automated 777-3) message] The sy stem which generated this result transmitted reference range : 150 - 328 10*3/ ?L. The reference r carolynn was not used to interpret this result as normal/abnormal . MPV (test code = 10.8 fL 9.8-13.0 35800-7) NRBC/100 WBC (test 0.0 See_Comment [Automat ed code = 0866983940) message] The system which generated this result transmitted reference range : 0.0 - 10.0 /100 WBCs. The refer ence range was not u sed to interpret th is result as normal/abnormal . NRBC x10^3 (test code See_Comment [Auto mated = 4154355318) message] The s ystem which generated this result transmitted reference range : 10*3/?L. The reference range was not used to interpret this result as normal/abnormal . GRAN MAT (NEUT) % 61.8 % (test code = 770-8) IMM GRAN % (test code 0.50 % = 0062244521) LYMPH % (test code = 23.4 % 736-9) MONO % (test code = 8.9 % 5905-5) EOS % (test code = 4.5 % 713-8) BASO % (test code = 0.9 % 706-2) GRAN MAT x10^3(ANC) 4.63 10*3/uL 1.99-6.95 (test code = 8131883269) IMM GRAN x10^3 (test 0.04 10*3/uL 0.00-0.06 code = 9914099924) LYMPH x10^3 (test code 1.76 10*3/uL 1.09-3.23 = 731-0) MONO x10^3 (test code 0.67 10*3/uL 0.36-1.02 = 742-7) EOS x10^3 (test code = 0.34 10*3/uL 0.06-0.53 711-2) BASO x10^3 (test code 0.07 10*3/uL 0.01-0.09 = 704-7) Lab Interpretation Abnormal (test code = 24969-8) [facility] GLUCOSE (AUTOMATED)2022-09-17 20:08:02 Test Item Value Reference Range Interpretation Comments POCT GLU (test code = 2865272164) 149 mg/dL 70-110 H Lab Interpretation (test code = Abnormal 14130-5) [facility] >30DAYS[facility]2022-09-17 20:08:00 Test Item Value Reference Range Interpretation Comments POCT Glu (age>30days) (test code = 149 mg/dL 70-110 A 3342) Lab Interpretation (test code = Abnormal 13391-6) [facility]PRE[facility]ABOL[facility] [id number] 06:00:00 Test Item Value Reference Range Interpretation [...] the recommended for christofer for GFRby the [facility] Foundati on for Adults.The GFR will [...] 50.0-136.0 N TOTAL (test code = ALKP) [id number] 06:00:00 Test Item Value Reference Range Interpretation Comments MAGNESIUM (test code = MAG) 1.9 mg/dl 1.8-2.4 N CBC W/AUTO [id number] 05:36:00 Test Item Value Reference Range Interpretation [...] Daily while on Heparin- XR CHEST 1 [id number] 14:31:00 [facility] : 1950 Sex: M FAX: Caren Lopes MD [phone] [place]: St: [facility] FAX: Kellie Nava [phone] Name: RICKI MCCLAIN [facility] : 1950 Age/S: 72/M [address] [facility] Unit #: [id number] Loc: [place], [place] Phys: Kellie Vanegas [address] Acct: [id number] Dis Date: Status: ADM IN PHONE #: [phone] Exam Date: 08/25/2022 [facility] FAX #: [phone] Reason: SOB EXAMS: CPT CODE: [id number] XR CHEST 1 V 35966 HISTORY: Shortness of breath Location: C3 COMPARISON:08/21/2022 FINDINGS: There is cardiomegaly with perihilar and basilar opacities. No pneumothorax. Aortic calcifications are present. No other changes compared to prior study. IMPRESSION: 1. Stable chest with perihilar and basilar opacities compatible with areas of edema and pneumonia. at 1431 Reported and signed by: Chuck Lin M.D. CC: Caren Lopes MD; Kellie TORRES Technologist: Melonie Hirschvasantosh Date/Time/By: 08/25/2022 (1431) : By: [email or web address] PAGE 1 Signed Report FAX: Caren Lopes MD [phone] [place]: St: [facility] FAX: Kellie Nava [phone] Name: RICKI MCCLAIN [facility] : 1950 Age/S: 72/M [address] [facility] Unit #: [id number] Loc: [place], [place] Phys: Kellie Vanegas [address] Acct: [id number] Dis Date: Status: ADM IN PHONE #: [phone] Exam Date: 08/25/2022 1431 FAX #: [phone] Reason: SOB EXAMS: CPT CODE: [id number] XR CHEST 1 V 73323 (Continued) Orig Print D/T: S: 08/25/2022 (1434) PAGE 2 Signed ReportCOVID 19 Asymptomatic IH [id number] 05:47:00 Test Item Value Reference Range Interpretation Comments COVID 19 NEGATIVE NEGATIVE Negative result s should be Asymptomatic IH AG treated a s presumptive and (test code = ifinconsistent with COVNONPUIAG) clinical signs and symptoms, or ne cessaryfor patient managem ent, should be tested with an alternativemole cular assay. Negative results do not preclude WFIY-TyB-2yvcnb tion and should not be u sed as the sole basis forp atient management deci sions. Negative result s should beconsidered in the context of a pa tient's recent exposure s,history, presence of cli nical signs and symptoms consistentwith COVID-19. BASIC METABOLIC [id number] 05:46:00 Test Item Value Reference Range Interpretation [...] the recommended for christofer for GFRby the [facility]ney Foundati on for Adults.The GFR will not calculate if th e sex is unknown or if thepatient's ag e is <18 years. CREATININE (test 2.17 mg/dL 0.60-1.30 H code = CREAT) ESTIMATED CREAT 32 mL/min >30 CLEARANCE (test code = ECRCL) CALCIUM (test code 8.2 mg/dl 8.0-10.5 N = CA) CBC W/AUTO [id number] 05:34:00 Test Item Value Reference Range Interpretation [...] % 15-50 N (test code = FESAT) [id number] 11:08:00 Test Item Value Reference Range Interpretation Comments FERRITIN (test code = PRETTY) 217 ng/mL 23.9-336.2 N BASIC METABOLIC [id number] 10:52:00 Test Item Value Reference Range Interpretation [...] the recommended for christofer for GFRby the [facility] Foundati on for Adults.The GFR will not calculate if th e sex is unknown or if thepatient's ag e is <18 years. CREATININE (test 2.26 mg/dL 0.60-1.30 H code = CREAT) ESTIMATED CREAT 31 mL/min >30 CLEARANCE (test code = ECRCL) CALCIUM (test code 8.3 mg/dl 8.0-10.5 N = CA) THROMBOPLASTIN TIME [id number] 10:49:00 Test Item Value Reference Range Interpretation Comments THROMBOPLASTIN TIME 71.50 SECONDS 25.86-36.07 [facility] PARTIAL (test code = Therape utic Range - PTT) APTT of 48.8-80 .3 secondscorrelat es with plasma heparin concentration o f 0.2-0.4 u/mL CBC W/AUTO [id number] 04:46:00 Test Item Value Reference Range Interpretation [...] Specimen comments: Daily while on HeparinTHROMBOPLASTIN TIME [id number] 04:45:00 Test Item Value Reference Range Interpretation Comments THROMBOPLASTIN TIME 74.80 SECONDS 25.86-36.07 [facility] PARTIAL (test code = Therape utic Range - PTT) APTT of 48.8-80 .3 secondscorrelat es with plasma heparin concentration o f 0.2-0.4 u/mL THROMBOPLASTIN TIME [id number] 23:18:00 Test Item Value Reference Range Interpretation Comments THROMBOPLASTIN TIME 63.80 SECONDS 25.86-36.07 [facility] PARTIAL (test code = Therape utic Range - PTT) APTT of 48.8-80 .3 secondscorrelat es with plasma heparin concentration o f 0.2-0.4 u/mL THROMBOPLASTIN TIME [id number] 16:42:00 Test Item Value Reference Range Interpretation Comments THROMBOPLASTIN TIME 43.40 SECONDS 25.86-36.07 [facility] PARTIAL (test code = Therape utic Range - PTT) APTT of 48.8-80 .3 secondscorrelat es with plasma heparin concentration o f 0.2-0.4 u/mL - US RETRO [id number] 10:12:00 [facility] : 1950 Sex: M FAX: Caren Lopes MD [phone] [place]: St: ADM FAX: Selina Chapa MD [phone] Name: RICKI MCCLAIN [facility] : 1950 Age/S: 72/M [address] [facility] Unit #: [id number] Loc: [address] [place], [place]: [place] [address] Acct: [id number] Dis Date: Status: ADM IN PHONE #: [phone] Exam Date: 08/23/2022 0912 FAX #: [phone] Reason: DIA vs CKD EXAMS: CPT CODE: [id number] RETRO LTD 91996 EXAM: - US RETRO LTD HISTORY: DIA [...] the right kidney as well as 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 or MRI of the kidneys the with and without contrast utilizing renal mass protocol is recommended. at 1012 Reported and signed by: Hesham Puri M.D. CC:Caren Lopes MD; Selina Bedolla MD Technologist: CATARINO PALMA Trnscrd Date/Time/By: 08/23/2022 (1012) : By: [email or web address] PAGE 1 Signed Report FAX: Caren Lopes MD [phone] [place]: St: [facility] FAX: Selina Chapa MD [phone] Name: RICKI MCCLAIN [facility] : 1950 Age/S: 72/M [address] [place] Unit #: [id number] Loc: [address] [place] [address] Phys: [place] [address] Acct: [id number] Dis Date: Status: ADM IN PHONE #: [phone] Exam Date: 08/23/2022911 FAX #: [phone] Reason: DIA vs CKD EXAMS: CPT CODE: [id number] RETRO LTD 81340 (Continued) Orig Print D/T: S: 08/23/2022 (1015) PAGE 2 Signed ReportTHROMBOPLASTIN TIME [id number] 08:50:00 Test Item Value Reference Range Interpretation Comments THROMBOPLASTIN TIME 82.60 SECONDS 25.86-36.07 [facility] PARTIAL (test code = Therape utic Range - PTT) APTT of 48.8-80 .3 secondscorrelat es with plasma heparin concentration o f 0.2-0.4 u/mL CBC W/AUTO [id number] 08:43:00 Test Item Value Reference Range Interpretation [...] Specimen comments: Daily while on HeparinTHROMBOPLASTIN TIME [id number] 22:42:00 Test Item Value Reference Range Interpretation Comments THROMBOPLASTIN TIME 41.20 SECONDS 25.86-36.07 [facility] PARTIAL (test code = Therape uti Range - PTT) APTT of 48.8-80 .3 secondscorrelat es with plasma heparin concentration o f 0.2-0.4 u/mL THROMBOPLASTIN TIME [id number] 15:55:00 Test Item Value Reference Range Interpretation Comments THROMBOPLASTIN TIME 55.90 SECONDS 25.86-36.07 [facility] PARTIAL (test code = Therape [facility] Range - PTT) APTT of 48.8-80 .3 secondscorrelat es with plasma heparin concentration o f 0.2-0.4 u/mL PROTHROMBIN [id number] 15:54:00 Test Item Value Reference Range Interpretation Comments PROTHROMBIN TIME 10.1 SECONDS 9.9-12.8 N PATIENT (test code = PTP) INTERNATIONAL NORMAL 0.9 0.89-1.14 N THE INR IS TO BE USED RATIO (test code = ONLY FOR MONITORING INR) ORAL ANTICOAGULANTTH ERAPY. THE FOLLOWING A RE SUGGESTED RANGE S FROM [facility] LEGE OF CHEST PHYSICIANS:MIGUEL CATION INR VALUEPROPHY [...] ANTIPHOSPHOLIPI D ANTIBODIES 2.5 - 3.5 PROTHROMBIN [id number] 06:35:00 Test Item Value Reference Range Interpretation Comments PROTHROMBIN TIME 9.9 SECONDS 9.9-12.8 N PATIENT (test code = PTP) INTERNATIONAL NORMAL 0.9 0.89-1.14 N THE INR IS TO BE USED RATIO (test code = ONLY FOR MONITORING INR) ORAL ANTICOAGULANTTH ERAPY. THE FOLLOWING A RE SUGGESTED RANGE S FROM [facility] LEGE OF CHEST PHYSICIANS:MIGUEL CATION INR VALUEPROPHY [...] ALREADY DONE WITHIN LAST 24 HOURSTHROMBOPLASTIN TIME [id number] 06:35:00 Test Item Value Reference Range Interpretation Comments THROMBOPLASTIN TIME 42.50 SECONDS 25.86-36.07 [facility] PARTIAL (test code = Therape utic Range - PTT) APTT of 48.8-80 .3 secondscorrelat es with plasma heparin concentration o f 0.2-0.4 u/mL ALREADY DONE FOR TODAY 08/21/2022Specimen comments: IF NOT ALREADY DONE WITHIN LAST 24 HOURSBASIC METABOLIC [id number] 06:33:00 Test Item Value Reference Range Interpretation [...] the recommended for christofer for GFRby the [facility] for Adults.The GFR will not calculate if th e sex is unknown or if thepatient's ag e is <18 years. CREATININE (test 3.00 mg/dL 0.60-1.30 H code = CREAT) ESTIMATED CREAT 23 mL/min >30 CLEARANCE (test code = ECRCL) CALCIUM (test code 8.6 mg/dl 8.0-10.5 N = CA) [id number] 06:33:00 Test Item Value Reference Range Interpretation Comments MAGNESIUM (test code = MAG) 2.6 mg/dl 1.8-2.4 H CBC W/AUTO [id number] 06:11:00 Test Item Value Reference Range Interpretation [...] ALREADY DONE WITHIN LAST 24 HOURSTROP-I HIGH [id number] 21:18:00 Test Item Value Reference Range Interpretation [...] results may margot y bymethod. TROP-I HIGH [id number] 19:05:00 Test Item Value Reference Range Interpretation Comments TROP-I HIGH 8381 ng/L 0-76 HH CAUTION: Units of the SENSITIVITY (test current TR OPI-HS test code = TROPIHS) methodology( ng/L) differ from the prior test methodolog y (ng/mL) by afac tor of 1000. -------- -------- ---99th Percentile: Fem ales: 0 - 51 ng/L Males : 0 - 76 ng/LThese resul ts were obtained using Silent Herdsman TnIHreagent. Re sults from different methodologies s hould not becompared to one another as regino titative results may margot y bymethod. B-TYPE NATRIURETIC [id number] 16:50:00 Test Item Value Reference Range Interpretation Comments B-TYPE NATRIURETIC PEPTIDE (test 4840 PG/ML 5-100 H code = BNP) TROP-I HIGH [id number] 16:50:00 Test Item Value Reference Range Interpretation Comments TROP-I HIGH 8390 ng/L 0-76 HH CAUTION: Units of the SENSITIVITY (test current TR OPI-HS test code = TROPIHS) methodology( ng/L) differ from the prior test methodolog y (ng/mL) by afac tor of 1000. -------- -------- ---99th Percentile: Fem ales: 0 - 51 ng/L Males : 0 - 76 ng/LThese resul ts were obtained using Silent [employer]dsman TnIHreagent. Re sults from different methodologies s hould not becompared to one another as regino titative results may margot y bymethod. LIPOPROTEIN [id number] 16:50:00 Test Item Value Reference Range Interpretation Comments LIPOPROTEIN LDL (test code = LDL) 90 mg/dl 70-130 N BASIC METABOLIC [id number] 16:50:00 Test Item Value Reference Range Interpretation [...] the recommended for christofer for GFRby the [facility] Kidney Foundati on for Adults.The GFR will not calculate if th e sex is unknown or if thepatient's ag e is <18 years. CREATININE (test 3.07 mg/dL 0.60-1.30 H code = CREAT) CALCIUM (test code 9.0 mg/dl 8.0-10.5 N = CA) ESTIMATED CREAT 23 mL/min >30 CLEARANCE (test code = ECRCL) [id number] 16:39:00 Test Item Value Reference Range Interpretation Comments MAGNESIUM (test code = MAG) 2.2 mg/dl 1.8-2.4 N LACTIC [id number] 16:33:00 Test Item Value Reference Range Interpretation Comments LACTIC ACID (test code = LACT) 1.2 mmol/L 0.4-2.0 N PROTHROMBIN [id number] 16:13:00 Test Item Value Reference Range Interpretation Comments PROTHROMBIN TIME 10.6 SECONDS 9.9-12.8 N PATIENT (test code = PTP) INTERNATIONAL NORMAL 1.0 0.89-1.14 N THE INR IS TO BE USED RATIO (test code = ONLY FOR MONITORING INR) ORAL ANTICOAGULANTTH ERAPY. THE FOLLOWING A RE SUGGESTED RANGE S FROM [facility] LEGE OF CHEST PHYSICIANS:MIGUEL CATION INR VALUEPROPHY [...] 2.5 - 3.5 Specimen comments: .THROMBOPLASTIN TIME [id number] 16:13:00 Test Item Value Reference Range Interpretation Comments THROMBOPLASTIN TIME 28.00 SECONDS 25.86-36.07 [facility] PARTIAL (test code = Therape utic Range - PTT) APTT of 48.8-80 .3 secondscorrelat es with plasma heparin concentration o f 0.2-0.4 u/mL Specimen comments: .CBC W/AUTO [id number] 16:05:00 Test Item Value Reference Range Interpretation [...] 0.00 X10 3uL 0.00-0.01 N NRBC#) - CHEST 1 [id number] 15:57:00 [facility] : 1950 Sex: M FAX: GabeabdifatahSara DO [place]: St: REG Name: RICKI MCCLAIN [facility] : 1950 Age/S: 72/M [address] [facility] Unit #: [id number] Loc: [address] [place], [place]: [place] [address] Acct: [id number] Dis Date: Status: REG ER PHONE #: [phone] Exam Date: 08/21/2022 [facility] FAX #: [phone] Reason: Chest Pain EXAMS: CPT CODE: [id number] XR CHEST 1 V 63896 EXAMINATION: - XR CHEST 1 V Location: CLINICAL INDICATION: Male, 72 years year old with [...] congestion with patchy bilateral lower lobe airspace disease and likely small left effusion. Electronically Signed by Loretta Wagoner on08/21/2022 at 1557 Reported and signed by: Boo Wagoner M.D. CC: Sara Santacruz DO Technologist: BRIANNA JENKINS Trnscrd Date/Time/By: 08/21/2022 (8337) : By: [email or web address] PAGE 1 Signed Report FAX: Sara Santacruz DO [place]: St: REG Name: RICKI MCCLAIN [facility] : 1950 Age/S: 72/M [address] [facility] Unit #: [id number] Loc: [address] Phys: [place] [address] Acct: [id number] Dis Date: Status: REG ER PHONE #: [phone] Exam Date: 08/21/2022 1555 FAX #: [phone] Reason: Chest Pain EXAMS: CPT CODE: [id number] XR CHEST 1 V 43422 (Continued) Orig Print D/T: S: 08/21/2022(1600) PAGE 2 Signed ReportCARDIAC [id number] 21:03:00 Test Item Value Reference Range Interpretation Comments Troponin-I (test code no gt See_Comment [Auto mated message] The = Troponin-I) system which g enerated this result transmit todd reference range : <=0.40. The reference r carolynn was not used to interpr et this result as kimberli l/abnormal. [facility] [employer] TechnologiesannCARDIAC [id number] 21:03:00 Test Item Value Reference Range Interpretation Comments BNP (test code = BNP) 75 [facility] [id number] 21:03:00 Test Item Value Reference Range Interpretation Comments Lipase Lvl (test code = Lipase Lvl) 130 73-393 [facility] HospitalYlpohxpFZHJFDJDGDOX7363-92-56 21:03:00 Test Item Value Reference Range Interpretation Comments AGAP (test code = AGAP) 12.6 10.0-20.0 [facility] HospitalWfuhviiAQBTKUQWSIWT6269-73-31 21:03:00 Test Item Value Reference Range Interpretation Comments B/C Ratio (test code = B/C Ratio) 16 1 6-25 [facility] HospitalKrekvwwWVQKLUWOXKYV3492-52-24 21:03:00 Test Item Value Reference Range Interpretation Comments Globulin (test code = Globulin) 3.8 2.7-4.2 [facility] HospitalUwfnkaeHTCMPPNKPJZO0060-83-40 21:03:00 Test Item Value Reference Range Interpretation Comments A/G Ratio (test code = A/G Ratio) 0.9 1 0.7-1.6 [facility] HospitalRxdfyooSAHDJYYIJPWI3152-97-33 21:03:00 Test Item Value Reference Range Interpretation Comments Glucose Lvl (test code = Glucose Lvl) 177 70-99 [facility] HospitalYnmpcawBCWAZAJCWAUH6971-85-62 21:03:00 Test Item Value Reference Range Interpretation Comments BUN (test code = BUN) 35 7-22 [facility] HospitalRsautvaERYCMLLIHOVK7354-88-09 21:03:00 Test Item Value Reference Range Interpretation Comments Creatinine Lvl (test code = Creatinine 2.24 0.50-1.40 Lvl) [facility] HospitalBmmsxtrBMUMXOEZZIJM3031-57-19 21:03:00 Test Item Value Reference Range Interpretation Comments Sodium Lvl (test code = Sodium Lvl) 139 135-145 [facility] HospitalTocmhjcHTRWKSOOSKAC4837-15-34 21:03:00 Test Item Value Reference Range Interpretation Comments Potassium Lvl (test code = Potassium 4.6 3.5-5.1 Lvl) [facility] HospitalVpivgheLTDSDGKIHHKK5573-46-32 21:03:00 Test Item Value Reference Range Interpretation Comments Chloride Lvl (test code = Chloride Lvl) 105 95-109 [facility] HospitalGifydvbZAYHXDINRVTS1606-81-69 21:03:00 Test Item Value Reference Range Interpretation Comments CO2 (test code = CO2) 26 24-32 [facility] HospitalNvbcdguKCWSVRAXHHML4694-32-85 21:03:00 Test Item Value Reference Range Interpretation Comments Calcium Lvl (test code = Calcium Lvl) 9.5 8.5-10.5 [facility] HospitalAyadpudVLTIYUIGJCAZ3346-35-22 21:03:00 Test Item Value Reference Range Interpretation Comments Total Protein (test code = Total 7.2 6.4-8.4 Protein) [facility] HospitalGrmangcZWATMSLVPMHC1528-04-88 21:03:00 Test Item Value Reference Range Interpretation Comments Albumin Lvl (test code = Albumin Lvl) 3.4 3.5-5.0 [facility] HospitalTesqvsqLEWWDOFQIBXY4452-23-43 21:03:00 Test Item Value Reference Range Interpretation Comments ALT (test code = ALT) 28 See_Comment [Auto mated message] The system which ge nerated this result transmit todd reference range : <=65. The reference range was not used to interpr et this result as kimberli l/abnormal. [facility] HospitalXxqacrlEQUOXTMDEBCL8827-99-79 21:03:00 Test Item Value Reference Range Interpretation Comments AST (test code = AST) 22 See_Comment [Auto mated message] The system which ge nerated this result transmit todd reference range : <=37. The reference range was not used to interpr et this result as kimberli l/abnormal. [facility] HospitalGcracwjMKRLIXECIHIR6698-17-22 21:03:00 Test Item Value Reference Range Interpretation Comments Alk Phos (test code = Alk Phos) 82 39-136 [facility] HospitalOzxkwnfYDBGKPJYIVCC7003-96-76 21:03:00 Test Item Value Reference Range Interpretation Comments Bili Total (test code = Bili Total) 0.4 0.2-1.3 [facility] HospitalHvbaprkSLJONKTFGSSK1785-77-07 21:03:00 Test Item Value Reference Range Interpretation Comments eGFR (test code = eGFR) 29 [facility]OhzyqwyHGHFXADPJR4589-76-18 21:03:00 Test Item Value Reference Range Interpretation Comments WBC (test code = WBC) 11.0 3.7-10.4 [facility] CenterCxdwyrsRCXLWUHHAH9034-90-66 21:03:00 Test Item Value Reference Range Interpretation Comments RBC (test code = RBC) 4.22 4.70-6.10 [facility] CenterNycqxkkMDMHVZQDGE2067-57-46 21:03:00 Test Item Value Reference Range Interpretation Comments Hgb (test code = Hgb) 13.4 14.0-18.0 [facility] CenterXfsnmqxAGJFJXIJDW0020-65-50 21:03:00 Test Item Value Reference Range Interpretation Comments Hct (test code = Hct) 40.2 42.0-54.0 [facility] CenterOdkerkcRBGTSPOMCX2120-28-34 21:03:00 Test Item Value Reference Range Interpretation Comments MCV (test code = MCV) 95.2 80.0-94.0 [facility] CenterQjjygxoSCMGUGKOED2475-16-13 21:03:00 Test Item Value Reference Range Interpretation Comments MCH (test code = MCH) 31.7 pg 27.0-31.0 [facility] CenterDagsbrzFLNWHJYHDA8099-22-06 21:03:00 Test Item Value Reference Range Interpretation Comments MCHC (test code = MCHC) 33.3 32.0-36.0 [facility] CenterYhgdhbgGRRRVSJLCG8162-35-89 21:03:00 Test Item Value Reference Range Interpretation Comments RDW (test code = RDW) 14.3 11.5-14.5 [facility] CenterWyjtwgmQFRPOCDDHL2353-22-08 21:03:00 Test Item Value Reference Range Interpretation Comments Platelet (test code = Platelet) 286 133-450 [facility] CenterQprdouhXZGAMFXBAJ9464-78-31 21:03:00 Test Item Value Reference Range Interpretation Comments MPV (test code = MPV) 8.5 7.4-10.4 [facility] CenterTbhykpcKUCPDNGHKH9209-16-89 21:03:00 Test Item Value Reference Range Interpretation Comments Segs (test code = Segs) 91.9 45.0-75.0 [facility] CenterNvrtbzyABBGBFHVLI1670-04-20 21:03:00 Test Item Value Reference Range Interpretation Comments Lymphocytes (test code = Lymphocytes) 5.0 20.0-40.0 [facility] CenterFhzfvwnUZXHXHDFWU4526-08-62 21:03:00 Test Item Value Reference Range Interpretation Comments Monocytes (test code = Monocytes) 2.4 2.0-12.0 [facility] CenterPiplyqcXEKQSRFMBP2086-82-19 21:03:00 Test Item Value Reference Range Interpretation Comments Basophils (test code = 0.7 See_Comment [Aut omated message] The Basophils) system which ge nerated this result tra nsmitted reference range : <=1.0. The reference r carolynn was not used to int erpret this result as normal/abnormal . [facility] CenterVvpeodoAIAUHYPPWL4397-65-95 21:03:00 Test Item Value Reference Range Interpretation Comments Neutrophils # (test code = Neutrophils 10.1 1.5-8.1 #) [facility] CenterMixwfflHLIQDKBCKD4921-17-98 21:03:00 Test Item Value Reference Range Interpretation Comments Lymphocytes # (test code = Lymphocytes 0.5 1.0-5.5 #) [facility]PuunjazWJKYNQSRFE9672-35-22 21:03:00 Test Item Value Reference Range Interpretation Comments Monocytes # (test code 0.3 See_Comment [Aut omated message] The = Monocytes #) system which generated this result tra nsmitted reference range : <=0.8. The reference r carolynn was not used to int erpret this result as normal/abnormal . [facility] HospitalRejuubwGHRFIKWLMN0412-93-04 21:03:00 Test Item Value Reference Range Interpretation Comments Basophils # (test code 0.1 See_Comment [Aut omated message] The = Basophils #) system which generated this result tra nsmitted reference range : <=0.2. The reference r carolynn was not used to int erpret this result as normal/abnormal . [facility] HospitalCriteoAC JLNLRAB5731-69-95 21:03:00 Test Item Value Reference Range Interpretation Comments Troponin-I (test code no gt See_Comment [Auto mated message] The = Troponin-I) system which g enerated this result transmit todd reference range : <=0.40. The reference r carolynn was not used to interpr et this result as kimberli l/abnormal. [facility] HospitalSTWAAC UIGFBEB2647-39-94 21:03:00 Test Item Value Reference Range Interpretation Comments BNP (test code = BNP) 75 [facility] CNSYB2319-99-21 21:03:00 Test Item Value Reference Range Interpretation Comments Lipase Lvl (test code = Lipase Lvl) 130 73-393 [facility] CenterSolkbpzDNNYRHWMJSDZ1152-39-88 21:03:00 Test Item Value Reference Range Interpretation Comments AGAP (test code = AGAP) 12.6 10.0-20.0 [facility]TctgaoyEDLARSDJVLLX3818-40-85 21:03:00 Test Item Value Reference Range Interpretation Comments B/C Ratio (test code = B/C Ratio) 16 1 6-25 [facility]GzqfeweDFBGYGNELDNT8895-02-10 21:03:00 Test Item Value Reference Range Interpretation Comments Globulin (test code = Globulin) 3.8 2.7-4.2 [facility] CenterOkxzuxhSTIYHDCXOZMZ8461-92-20 21:03:00 Test Item Value Reference Range Interpretation Comments A/G Ratio (test code = A/G Ratio) 0.9 1 0.7-1.6 [facility]FdtdwmbHOCAQIXXESKL6870-06-98 21:03:00 Test Item Value Reference Range Interpretation Comments Glucose Lvl (test code = Glucose Lvl) 177 70-99 [facility] HospitalFrqevnqJANUZJSIYBLD2861-54-63 21:03:00 Test Item Value Reference Range Interpretation Comments BUN (test code = BUN) 35 7-22 [facility] HospitalZcczogoEYMMKVHQYTWZ8066-03-71 21:03:00 Test Item Value Reference Range Interpretation Comments Creatinine Lvl (test code = Creatinine 2.24 0.50-1.40 Lvl) [facility] HospitalVstmindEVNVAYEJTJCP4737-54-79 21:03:00 Test Item Value Reference Range Interpretation Comments Sodium Lvl (test code = Sodium Lvl) 139 135-145 [facility] HospitalUrkmiwyJUNVACQMIONE9330-08-70 21:03:00 Test Item Value Reference Range Interpretation Comments Potassium Lvl (test code = Potassium 4.6 3.5-5.1 Lvl) [facility] HospitalNkoylivGBFTNKMNPRIR2492-97-30 21:03:00 Test Item Value Reference Range Interpretation Comments Chloride Lvl (test code = Chloride Lvl) 105 95-109 [facility] HospitalIouxoiwUVOCBQPYTRBJ8033-16-21 21:03:00 Test Item Value Reference Range Interpretation Comments CO2 (test code = CO2) 26 24-32 [facility] HospitalEiogrlwVKZJQGERCYVI3118-46-13 21:03:00 Test Item Value Reference Range Interpretation Comments Calcium Lvl (test code = Calcium Lvl) 9.5 8.5-10.5 [facility] HospitalZypieoiUOXIVDJKFLSV5133-41-59 21:03:00 Test Item Value Reference Range Interpretation Comments Total Protein (test code = Total 7.2 6.4-8.4 Protein) [facility] HospitalKffapmgZZYPOGHKKRJQ6005-31-62 21:03:00 Test Item Value Reference Range Interpretation Comments Albumin Lvl (test code = Albumin Lvl) 3.4 3.5-5.0 [facility] HospitalJaiygqfUTWTUMFZMYSM1188-12-98 21:03:00 Test Item Value Reference Range Interpretation Comments ALT (test code = ALT) 28 See_Comment [Auto mated message] The system which ge nerated this result transmit todd reference range : <=65. The reference range was not used to interpr et this result as kimberli l/abnormal. [facility] HospitalIrqjzpaKJQNJATXDRUX2167-91-72 21:03:00 Test Item Value Reference Range Interpretation Comments AST (test code = AST) 22 See_Comment [Auto mated message] The system which ge nerated this result transmit todd reference range : <=37. The reference range was not used to interpr et this result as kimberli l/abnormal. [facility] HospitalMmbciitZTBUSUGJTLZR7505-47-13 21:03:00 Test Item Value Reference Range Interpretation Comments Alk Phos (test code = Alk Phos) 82 39-136 [facility] HospitalQapcugpQGYFDPTWHDCI3324-97-52 21:03:00 Test Item Value Reference Range Interpretation Comments Bili Total (test code = Bili Total) 0.4 0.2-1.3 [facility] HospitalBxspfrwEGKCEMLWRNFU0761-45-53 21:03:00 Test Item Value Reference Range Interpretation Comments eGFR (test code = eGFR) 29 [facility]JzoajwnXTKFQLGCXZ0487-35-18 21:03:00 Test Item Value Reference Range Interpretation Comments WBC (test code = WBC) 11.0 3.7-10.4 [facility] CenterRjnjjfwZHUJKAAEGH0025-75-48 21:03:00 Test Item Value Reference Range Interpretation Comments RBC (test code = RBC) 4.22 4.70-6.10 [facility] CenterAzgjmvcJHOCNRRKNZ3248-09-33 21:03:00 Test Item Value Reference Range Interpretation Comments Hgb (test code = Hgb) 13.4 14.0-18.0 [facility] CenterYmywsqnULENEIXFEJ4351-66-24 21:03:00 Test Item Value Reference Range Interpretation Comments Hct (test code = Hct) 40.2 42.0-54.0 [facility] CenterCyialvtVMDOAOBUQB4050-65-02 21:03:00 Test Item Value Reference Range Interpretation Comments MCV (test code = MCV) 95.2 80.0-94.0 [facility] CenterShjakqqBSHECYKNQL6849-35-44 21:03:00 Test Item Value Reference Range Interpretation Comments MCH (test code = MCH) 31.7 pg 27.0-31.0 [facility] CenterQqdwjjcDDQRTQZTBD8334-29-83 21:03:00 Test Item Value Reference Range Interpretation Comments MCHC (test code = MCHC) 33.3 32.0-36.0 [facility] CenterMinlwppUNXAZACMXI7694-78-01 21:03:00 Test Item Value Reference Range Interpretation Comments RDW (test code = RDW) 14.3 11.5-14.5 [facility] CenterNimlwmwITPMGOHURS7062-44-76 21:03:00 Test Item Value Reference Range Interpretation Comments Platelet (test code = Platelet) 286 133-450 [facility] CenterYvnpmcbYYQDTUNDQY3396-12-15 21:03:00 Test Item Value Reference Range Interpretation Comments MPV (test code = MPV) 8.5 7.4-10.4 [facility] CenterYymuiraDEBTFIKIYJ4227-63-22 21:03:00 Test Item Value Reference Range Interpretation Comments Segs (test code = Segs) 91.9 45.0-75.0 [facility] CenterTdbwbrnJCGZMRESUH9621-46-82 21:03:00 Test Item Value Reference Range Interpretation Comments Lymphocytes (test code = Lymphocytes) 5.0 20.0-40.0 [facility] CenterJuqqtkuKERASVHPJY3117-73-69 21:03:00 Test Item Value Reference Range Interpretation Comments Monocytes (test code = Monocytes) 2.4 2.0-12.0 [facility] CenterCrvtptoFEROEURGDJ5742-65-01 21:03:00 Test Item Value Reference Range Interpretation Comments Basophils (test code = 0.7 See_Comment [Aut omated message] The Basophils) system which ge nerated this result tra nsmitted reference range : <=1.0. The reference r carolynn was not used to int erpret this result as normal/abnormal . [facility] CenterGxspfptPEWSKDUCXG4275-28-65 21:03:00 Test Item Value Reference Range Interpretation Comments Neutrophils # (test code = Neutrophils 10.1 1.5-8.1 #) [facility] CenterFgjkktqZLEZDMXCVM4336-39-47 21:03:00 Test Item Value Reference Range Interpretation Comments Lymphocytes # (test code = Lymphocytes 0.5 1.0-5.5 #) [facility] CenterJnwvmkwSGFXSMWYMH2535-04-57 21:03:00 Test Item Value Reference Range Interpretation Comments Monocytes # (test code 0.3 See_Comment [Aut omated message] The = Monocytes #) system which generated this result tra nsmitted reference range : <=0.8. The reference r carolynn was not used to int erpret this result as normal/abnormal . [facility] CenterKrkwhauPZHZQNUCRF1371-69-99 21:03:00 Test Item Value Reference Range Interpretation Comments Basophils # (test code 0.1 See_Comment [Aut omated message] The = Basophils #) system which generated this result tra nsmitted reference range : <=0.2. The reference r carolynn was not used to int erpret this result as normal/abnormal . [facility] HospitalFaculteCARDIAC UHJBLXT9823-75-62 21:03:00 Test Item Value Reference Range Interpretation Comments Troponin-I (test code no gt See_Comment [Auto mated message] The = Troponin-I) system which g enerated this result transmit todd reference range : <=0.40. The reference r carolynn was not used to interpr et this result as kimberli l/abnormal. [facility] HospitalFaculteCARMeaningoAC KYQCGGS0373-18-26 21:03:00 Test Item Value Reference Range Interpretation Comments BNP (test code = BNP) 75 [facility] HospitalFaculteCHEM ZJHKY1475-95-36 21:03:00 Test Item Value Reference Range Interpretation Comments Lipase Lvl (test code = Lipase Lvl) 130 73-393 [facility] HospitalQmkftupYXVXYEEQGYSF9387-75-56 21:03:00 Test Item Value Reference Range Interpretation Comments AGAP (test code = AGAP) 12.6 10.0-20.0 [facility] HospitalSbopehhXJCIAGYGYPLB5321-10-67 21:03:00 Test Item Value Reference Range Interpretation Comments B/C Ratio (test code = B/C Ratio) 16 1 6-25 [facility] HospitalIetnzwcUZPHPHGRYCBY3485-67-00 21:03:00 Test Item Value Reference Range Interpretation Comments Globulin (test code = Globulin) 3.8 2.7-4.2 [facility] HospitalZqvauaaXIBZQZCMMEUT5941-14-96 21:03:00 Test Item Value Reference Range Interpretation Comments A/G Ratio (test code = A/G Ratio) 0.9 1 0.7-1.6 [facility] HospitalYxvprgmIWFKISBTNKOY4390-48-21 21:03:00 Test Item Value Reference Range Interpretation Comments Glucose Lvl (test code = Glucose Lvl) 177 70-99 [facility] HospitalUqnxddbKAHJVNGPUXBI6533-06-15 21:03:00 Test Item Value Reference Range Interpretation Comments BUN (test code = BUN) 35 7-22 [facility] HospitalUvqxfwlRUAZMLLHXTQL9448-04-68 21:03:00 Test Item Value Reference Range Interpretation Comments Creatinine Lvl (test code = Creatinine 2.24 0.50-1.40 Lvl) [facility] HospitalGnnziwjMKZUMJPFDMDC9071-25-45 21:03:00 Test Item Value Reference Range Interpretation Comments Sodium Lvl (test code = Sodium Lvl) 139 135-145 [facility] HospitalWyruzenJQWSHDVYFYCP7280-97-81 21:03:00 Test Item Value Reference Range Interpretation Comments Potassium Lvl (test code = Potassium 4.6 3.5-5.1 Lvl) [facility] HospitalZlwfzogKUEDTSAPJFLL8307-85-37 21:03:00 Test Item Value Reference Range Interpretation Comments Chloride Lvl (test code = Chloride Lvl) 105 95-109 [facility] HospitalEozdcwxAASLHXOYWPQX1167-78-43 21:03:00 Test Item Value Reference Range Interpretation Comments CO2 (test code = CO2) 26 24-32 [facility] HospitalKmkkyetLNAECDFZMIUW7217-47-75 21:03:00 Test Item Value Reference Range Interpretation Comments Calcium Lvl (test code = Calcium Lvl) 9.5 8.5-10.5 [facility] HospitalNqxpzqsOABXXNWIQMYE5531-13-97 21:03:00 Test Item Value Reference Range Interpretation Comments Total Protein (test code = Total 7.2 6.4-8.4 Protein) [facility] HospitalXvksrhiRAPHSBBJKYIK2616-83-16 21:03:00 Test Item Value Reference Range Interpretation Comments Albumin Lvl (test code = Albumin Lvl) 3.4 3.5-5.0 [facility] HospitalFzgdvguLYNUIPLDDALN9438-19-79 21:03:00 Test Item Value Reference Range Interpretation Comments ALT (test code = ALT) 28 See_Comment [Auto mated message] The system which ge nerated this result transmit todd reference range : <=65. The reference range was not used to interpr et this result as kimberli l/abnormal. [facility] HospitalMfnwsoaGVNRXZVZYSSO3473-60-16 21:03:00 Test Item Value Reference Range Interpretation Comments AST (test code = AST) 22 See_Comment [Auto mated message] The system which ge nerated this result transmit todd reference range : <=37. The reference range was not used to interpr et this result as kimberli l/abnormal. [facility] HospitalBiutpzbAWMXKPBBFIYQ2424-07-49 21:03:00 Test Item Value Reference Range Interpretation Comments Alk Phos (test code = Alk Phos) 82 39-136 [facility] HospitalDdrpuloSMMBIIOTOHKT3050-28-88 21:03:00 Test Item Value Reference Range Interpretation Comments Bili Total (test code = Bili Total) 0.4 0.2-1.3 [facility] HospitalItwbzakXIVFXYLQOVFZ9388-61-84 21:03:00 Test Item Value Reference Range Interpretation Comments eGFR (test code = eGFR) 29 [facility]RhuifqgQOVCKJODKO6688-97-41 21:03:00 Test Item Value Reference Range Interpretation Comments WBC (test code = WBC) 11.0 3.7-10.4 [facility]QzamctpYZIQYDTWBO7971-18-67 21:03:00 Test Item Value Reference Range Interpretation Comments RBC (test code = RBC) 4.22 4.70-6.10 [facility] HospitalYorafolRCEDKHBDCE9185-16-89 21:03:00 Test Item Value Reference Range Interpretation Comments Hgb (test code = Hgb) 13.4 14.0-18.0 [facility] HospitalZqtsmeoKUNSTUYHPV4809-15-49 21:03:00 Test Item Value Reference Range Interpretation Comments Hct (test code = Hct) 40.2 42.0-54.0 [facility] HospitalWmhflcpADNBNYOSUF5001-36-58 21:03:00 Test Item Value Reference Range Interpretation Comments MCV (test code = MCV) 95.2 80.0-94.0 [facility] HospitalMwqzfugSPKHZWGFDB5916-79-26 21:03:00 Test Item Value Reference Range Interpretation Comments MCH (test code = MCH) 31.7 pg 27.0-31.0 [facility] HospitalFcuirkoNEYYEHNPWK2616-36-70 21:03:00 Test Item Value Reference Range Interpretation Comments MCHC (test code = MCHC) 33.3 32.0-36.0 [facility] HospitalXznylqrMQSLRWPVAM7827-65-58 21:03:00 Test Item Value Reference Range Interpretation Comments RDW (test code = RDW) 14.3 11.5-14.5 [facility] HospitalVwxkyffOYAGHIPSVW6147-73-55 21:03:00 Test Item Value Reference Range Interpretation Comments Platelet (test code = Platelet) 286 133-450 [facility] HospitalIbeqlpzFZPONMDNZA9149-02-77 21:03:00 Test Item Value Reference Range Interpretation Comments MPV (test code = MPV) 8.5 7.4-10.4 [facility] HospitalVplncrpMVFTSUBLPO6934-16-95 21:03:00 Test Item Value Reference Range Interpretation Comments Segs (test code = Segs) 91.9 45.0-75.0 [facility] HospitalMxvwbrmHBENCFIITO5223-95-98 21:03:00 Test Item Value Reference Range Interpretation Comments Lymphocytes (test code = Lymphocytes) 5.0 20.0-40.0 [facility] CenterIfkmtwkSOACTVHJKP2506-46-00 21:03:00 Test Item Value Reference Range Interpretation Comments Monocytes (test code = Monocytes) 2.4 2.0-12.0 [facility] CenterEcwponrQFFVZKZTZX7253-81-79 21:03:00 Test Item Value Reference Range Interpretation Comments Basophils (test code = 0.7 See_Comment [Aut omated message] The Basophils) system which ge nerated this result tra nsmitted reference range : <=1.0. The reference r carolynn was not used to int erpret this result as normal/abnormal . [facility] CenterPxqancdALNPNMAAGQ1787-71-28 21:03:00 Test Item Value Reference Range Interpretation Comments Neutrophils # (test code = Neutrophils 10.1 1.5-8.1 #) [facility] CenterKfcgflbJWEGNVIOYH0617-21-41 21:03:00 Test Item Value Reference Range Interpretation Comments Lymphocytes # (test code = Lymphocytes 0.5 1.0-5.5 #) [facility] CenterRniwplxWXZKCZEJBL9555-28-28 21:03:00 Test Item Value Reference Range Interpretation Comments Monocytes # (test code 0.3 See_Comment [Aut omated message] The = Monocytes #) system which generated this result tra nsmitted reference range : <=0.8. The reference r carolynn was not used to int erpret this result as normal/abnormal . [facility] CenterXkxubujVHNVUGHLGX0257-16-10 21:03:00 Test Item Value Reference Range Interpretation Comments Basophils # (test code 0.1 See_Comment [Aut omated message] The = Basophils #) system which generated this result tra nsmitted reference range : <=0.2. The reference r carolynn was not used to int erpret this result as normal/abnormal . [facility] ZPVWCHR2499-12-01 21:03:00 Test Item Value Reference Range Interpretation Comments Troponin-I (test code no gt See_Comment [Auto mated message] The = Troponin-I) system which g enerated this result transmit todd reference range : <=0.40. The reference r carolynn was not used to interpr et this result as kimberli l/abnormal. [facility] DVOXGYT9700-13-74 21:03:00 Test Item Value Reference Range Interpretation Comments BNP (test code = BNP) 75 [facility]annCHEM DMPRZ9277-57-57 21:03:00 Test Item Value Reference Range Interpretation Comments Lipase Lvl (test code = Lipase Lvl) 130 73-393 [facility] HospitalQdhkpznYCMUAVDOJKFV3832-43-23 21:03:00 Test Item Value Reference Range Interpretation Comments AGAP (test code = AGAP) 12.6 10.0-20.0 [facility]XjdbbotXBVTGMFJATMO0562-69-54 21:03:00 Test Item Value Reference Range Interpretation Comments B/C Ratio (test code = B/C Ratio) 16 1 6-25 [facility] HospitalGgoqmvrRAPYJFXNYBEY9408-69-82 21:03:00 Test Item Value Reference Range Interpretation Comments Globulin (test code = Globulin) 3.8 2.7-4.2 [facility] HospitalXtzpljbJBGVLOWCNHBB7944-38-22 21:03:00 Test Item Value Reference Range Interpretation Comments A/G Ratio (test code = A/G Ratio) 0.9 1 0.7-1.6 [facility] HospitalLsxodjrOXFRPYVNBVYM7952-09-50 21:03:00 Test Item Value Reference Range Interpretation Comments Glucose Lvl (test code = Glucose Lvl) 177 70-99 [facility] HospitalAygolvdJXJWEMZKWLVE0438-83-18 21:03:00 Test Item Value Reference Range Interpretation Comments BUN (test code = BUN) 35 7-22 [facility] HospitalYcyrvdoFAQELFBDUZUK6262-97-78 21:03:00 Test Item Value Reference Range Interpretation Comments Creatinine Lvl (test code = Creatinine 2.24 0.50-1.40 Lvl) [facility] HospitalFjojeitSLHADGWBJXWJ2525-47-70 21:03:00 Test Item Value Reference Range Interpretation Comments Sodium Lvl (test code = Sodium Lvl) 139 135-145 [facility] HospitalKwazndfHCRRXNNFGALX4080-92-81 21:03:00 Test Item Value Reference Range Interpretation Comments Potassium Lvl (test code = Potassium 4.6 3.5-5.1 Lvl) [facility] HospitalKpwarkuXXEGDBPKETHB7583-99-06 21:03:00 Test Item Value Reference Range Interpretation Comments Chloride Lvl (test code = Chloride Lvl) 105 95-109 [facility] HospitalOpuzxkbERPTKJWUZZSA7041-80-77 21:03:00 Test Item Value Reference Range Interpretation Comments CO2 (test code = CO2) 26 24-32 [facility] HospitalWavjbogOGKAOQTKXMTL6198-70-14 21:03:00 Test Item Value Reference Range Interpretation Comments Calcium Lvl (test code = Calcium Lvl) 9.5 8.5-10.5 [facility] HospitalQnpnrurTZYQJHJOKJKZ2985-86-10 21:03:00 Test Item Value Reference Range Interpretation Comments Total Protein (test code = Total 7.2 6.4-8.4 Protein) [facility] HospitalYvebglsKOPMTJFQUUAQ7438-48-53 21:03:00 Test Item Value Reference Range Interpretation Comments Albumin Lvl (test code = Albumin Lvl) 3.4 3.5-5.0 [facility] HospitalTfabhfvXZMFHKSLQFUC0635-88-74 21:03:00 Test Item Value Reference Range Interpretation Comments ALT (test code = ALT) 28 See_Comment [Auto mated message] The system which ge nerated this result transmit todd reference range : <=65. The reference range was not used to interpr et this result as kimberli l/abnormal. [facility] HospitalHpghudvEVLKGCGQJOXT0044-19-29 21:03:00 Test Item Value Reference Range Interpretation Comments AST (test code = AST) 22 See_Comment [Auto mated message] The system which ge nerated this result transmit todd reference range : <=37. The reference range was not used to interpr et this result as kimberli l/abnormal. [facility] HospitalAaxdrzlXXWNCMKCHJIQ7255-76-51 21:03:00 Test Item Value Reference Range Interpretation Comments Alk Phos (test code = Alk Phos) 82 39-136 [facility] HospitalQosvyocIEEYZICMITEM5390-38-33 21:03:00 Test Item Value Reference Range Interpretation Comments Bili Total (test code = Bili Total) 0.4 0.2-1.3 [facility] HospitalEaiulruQKZWHBNYEWGG7560-18-28 21:03:00 Test Item Value Reference Range Interpretation Comments eGFR (test code = eGFR) 29 [facility] CenterOfwocobOZPJLTYPKQ3102-99-76 21:03:00 Test Item Value Reference Range Interpretation Comments WBC (test code = WBC) 11.0 3.7-10.4 [facility] CenterIlvmsyeWDYEVWWFWM9172-33-01 21:03:00 Test Item Value Reference Range Interpretation Comments RBC (test code = RBC) 4.22 4.70-6.10 [facility] CenterBfcndqgZZYPTUFWDE3276-44-22 21:03:00 Test Item Value Reference Range Interpretation Comments Hgb (test code = Hgb) 13.4 14.0-18.0 [facility] CenterDdsrbylWSDGAIEXWS2468-96-29 21:03:00 Test Item Value Reference Range Interpretation Comments Hct (test code = Hct) 40.2 42.0-54.0 [facility] CenterKolkxbbCOQQUPJDZH6384-52-47 21:03:00 Test Item Value Reference Range Interpretation Comments MCV (test code = MCV) 95.2 80.0-94.0 [facility] CenterDmdklkkHXBSKWZGFI9717-72-64 21:03:00 Test Item Value Reference Range Interpretation Comments MCH (test code = MCH) 31.7 pg 27.0-31.0 [facility] CenterAznjoehYOKFJMVJSH9192-80-40 21:03:00 Test Item Value Reference Range Interpretation Comments MCHC (test code = MCHC) 33.3 32.0-36.0 [facility] CenterTbiqfpiKEXLOISENH9199-51-74 21:03:00 Test Item Value Reference Range Interpretation Comments RDW (test code = RDW) 14.3 11.5-14.5 [facility] CenterThtwkraUKRPMBSYUZ7052-76-93 21:03:00 Test Item Value Reference Range Interpretation Comments Platelet (test code = Platelet) 286 133-450 [facility] CenterPcylckuZEXVINNCZF5441-31-61 21:03:00 Test Item Value Reference Range Interpretation Comments MPV (test code = MPV) 8.5 7.4-10.4 [facility] CenterOoetkhqKBTAQGPRIH4813-71-19 21:03:00 Test Item Value Reference Range Interpretation Comments Segs (test code = Segs) 91.9 45.0-75.0 [facility] CenterCcpmezaFSLZCZILIP7383-07-39 21:03:00 Test Item Value Reference Range Interpretation Comments Lymphocytes (test code = Lymphocytes) 5.0 20.0-40.0 [facility] CenterQnnrfxyIZDODAZVVV0247-06-63 21:03:00 Test Item Value Reference Range Interpretation Comments Monocytes (test code = Monocytes) 2.4 2.0-12.0 [facility] CenterQuqghraVKSBUEGQII9020-28-60 21:03:00 Test Item Value Reference Range Interpretation Comments Basophils (test code = 0.7 See_Comment [Aut omated message] The Basophils) system which ge nerated this result tra nsmitted reference range : <=1.0. The reference r carolynn was not used to int erpret this result as normal/abnormal . [facility]SkxrwdqPNJHSBIFIW8755-01-51 21:03:00 Test Item Value Reference Range Interpretation Comments Neutrophils # (test code = Neutrophils 10.1 1.5-8.1 #) [facility] HospitalAlgcxmiPREWEMPWMB0109-16-34 21:03:00 Test Item Value Reference Range Interpretation Comments Lymphocytes # (test code = Lymphocytes 0.5 1.0-5.5 #) [facility] HospitalOskmcbpPQGVVXHPCB6645-97-48 21:03:00 Test Item Value Reference Range Interpretation Comments Monocytes # (test code 0.3 See_Comment [Aut omated message] The = Monocytes #) system which generated this result tra nsmitted reference range : <=0.8. The reference r carolynn was not used to int erpret this result as normal/abnormal . [facility] HospitalRjeyytlYJRQKSGRET7747-27-49 21:03:00 Test Item Value Reference Range Interpretation Comments Basophils # (test code 0.1 See_Comment [Aut omated message] The = Basophils #) system which generated this result tra nsmitted reference range : <=0.2. The reference r carolynn was not used to int erpret this result as normal/abnormal . [facility]CAR[facility]AC DKSJFNR1169-49-31 21:03:00 Test Item Value Reference Range Interpretation Comments Troponin-I (test code no gt See_Comment [Auto mated message] The = Troponin-I) system which g enerated this result transmit todd reference range : <=0.40. The reference r carolynn was not used to interpr et this result as kimberli l/abnormal. [facility]CAR[facility]AC DKXZXWJ0305-50-56 21:03:00 Test Item Value Reference Range Interpretation Comments BNP (test code = BNP) 75 [facility]CHEM IQMGV5562-89-83 21:03:00 Test Item Value Reference Range Interpretation Comments Lipase Lvl (test code = Lipase Lvl) 130 73-393 [facility]VhhgnatBPJDBOBVQRIO9724-42-12 21:03:00 Test Item Value Reference Range Interpretation Comments AGAP (test code = AGAP) 12.6 10.0-20.0 [facility] CenterBvewrijTFIVZDCJVZDR6045-85-61 21:03:00 Test Item Value Reference Range Interpretation Comments B/C Ratio (test code = B/C Ratio) 16 1 6-25 [facility] HospitalYhzjnchIQKLFWAWXYAT4440-33-99 21:03:00 Test Item Value Reference Range Interpretation Comments Globulin (test code = Globulin) 3.8 2.7-4.2 [facility] HospitalZbycklxXUBKAPAYMGOC5816-51-61 21:03:00 Test Item Value Reference Range Interpretation Comments A/G Ratio (test code = A/G Ratio) 0.9 1 0.7-1.6 [facility] HospitalBnbregdMJTKALJVFBAF3565-69-00 21:03:00 Test Item Value Reference Range Interpretation Comments Glucose Lvl (test code = Glucose Lvl) 177 70-99 [facility] HospitalXdrrbspTJIMLVIBFIPX0383-40-67 21:03:00 Test Item Value Reference Range Interpretation Comments BUN (test code = BUN) 35 7-22 [facility] HospitalSdmuatzNISXZYUERQFZ5590-19-94 21:03:00 Test Item Value Reference Range Interpretation Comments Creatinine Lvl (test code = Creatinine 2.24 0.50-1.40 Lvl) [facility] HospitalYpgxtqzJKCJMSQPTMWX4192-55-93 21:03:00 Test Item Value Reference Range Interpretation Comments Sodium Lvl (test code = Sodium Lvl) 139 135-145 [facility] HospitalGameigdIBYFQQWSHIOP7630-76-96 21:03:00 Test Item Value Reference Range Interpretation Comments Potassium Lvl (test code = Potassium 4.6 3.5-5.1 Lvl) [facility] HospitalTbmiveyFNZJQCGYFBBG5681-34-85 21:03:00 Test Item Value Reference Range Interpretation Comments Chloride Lvl (test code = Chloride Lvl) 105 95-109 [facility]QuqcgxjZDPLCCTUAOTD3396-59-09 21:03:00 Test Item Value Reference Range Interpretation Comments CO2 (test code = CO2) 26 24-32 [facility] HospitalZxeqmysMGUHODSSPNDL1068-88-95 21:03:00 Test Item Value Reference Range Interpretation Comments Calcium Lvl (test code = Calcium Lvl) 9.5 8.5-10.5 [facility] HospitalDsumsdfWBJGNBUTXMBA0272-39-73 21:03:00 Test Item Value Reference Range Interpretation Comments Total Protein (test code = Total 7.2 6.4-8.4 Protein) [facility] HospitalXqupyujHWPIMVZLSFCR8233-95-80 21:03:00 Test Item Value Reference Range Interpretation Comments Albumin Lvl (test code = Albumin Lvl) 3.4 3.5-5.0 [facility] HospitalLkfaagkTVMURJWKVNQP3983-77-92 21:03:00 Test Item Value Reference Range Interpretation Comments ALT (test code = ALT) 28 See_Comment [Auto mated message] The system which ge nerated this result transmit todd reference range : <=65. The reference range was not used to interpr et this result as kimberli l/abnormal. [facility] HospitalVukciasMWXXXOBEATHM8014-08-80 21:03:00 Test Item Value Reference Range Interpretation Comments AST (test code = AST) 22 See_Comment [Auto mated message] The system which ge nerated this result transmit todd reference range : <=37. The reference range was not used to interpr et this result as kimberli l/abnormal. [facility] HospitalLcicpiaJLIWFMUWFBAL1813-57-18 21:03:00 Test Item Value Reference Range Interpretation Comments Alk Phos (test code = Alk Phos) 82 39-136 [facility] HospitalVelarnoLRXBLCOHHUVO0390-58-72 21:03:00 Test Item Value Reference Range Interpretation Comments Bili Total (test code = Bili Total) 0.4 0.2-1.3 [facility] HospitalVnicehbWXLFIIBSPWLB3316-99-22 21:03:00 Test Item Value Reference Range Interpretation Comments eGFR (test code = eGFR) 29 [facility]DkaaepiABSEYSMYEK3898-64-29 21:03:00 Test Item Value Reference Range Interpretation Comments WBC (test code = WBC) 11.0 3.7-10.4 [facility] CenterHwklfuwQQBJIWEPIZ6462-53-40 21:03:00 Test Item Value Reference Range Interpretation Comments RBC (test code = RBC) 4.22 4.70-6.10 [facility] CenterJcktzmySERHODEQEP4495-84-35 21:03:00 Test Item Value Reference Range Interpretation Comments Hgb (test code = Hgb) 13.4 14.0-18.0 [facility] CenterWivlnlrEJTQQXSMSO2106-35-62 21:03:00 Test Item Value Reference Range Interpretation Comments Hct (test code = Hct) 40.2 42.0-54.0 [facility] CenterDimxaigGRJMXBROTN9822-69-15 21:03:00 Test Item Value Reference Range Interpretation Comments MCV (test code = MCV) 95.2 80.0-94.0 [facility] CenterTkzsganVPFVRLMXWC7907-40-82 21:03:00 Test Item Value Reference Range Interpretation Comments MCH (test code = MCH) 31.7 pg 27.0-31.0 [facility] CenterUgogiqmUWPBNZNZBE7957-97-07 21:03:00 Test Item Value Reference Range Interpretation Comments MCHC (test code = MCHC) 33.3 32.0-36.0 [facility] CenterHukhciqZDHLAHXFJG7896-46-63 21:03:00 Test Item Value Reference Range Interpretation Comments RDW (test code = RDW) 14.3 11.5-14.5 [facility] CenterWjmmnybHQYSHHMXJK8865-36-25 21:03:00 Test Item Value Reference Range Interpretation Comments Platelet (test code = Platelet) 286 133-450 [facility] CenterQpkyezsHZONLDSRMD5742-09-02 21:03:00 Test Item Value Reference Range Interpretation Comments MPV (test code = MPV) 8.5 7.4-10.4 [facility] CenterPdtleetCFQTBMOTVZ3485-31-83 21:03:00 Test Item Value Reference Range Interpretation Comments Segs (test code = Segs) 91.9 45.0-75.0 [facility] CenterXxkbwldYCRDXFSHSL7687-62-87 21:03:00 Test Item Value Reference Range Interpretation Comments Lymphocytes (test code = Lymphocytes) 5.0 20.0-40.0 [facility] CenterYjoznjfSEKONGGBCR3065-32-46 21:03:00 Test Item Value Reference Range Interpretation Comments Monocytes (test code = Monocytes) 2.4 2.0-12.0 [facility] CenterVwkykgfYHLGRDIZGF9054-36-30 21:03:00 Test Item Value Reference Range Interpretation Comments Basophils (test code = 0.7 See_Comment [Aut omated message] The Basophils) system which ge nerated this result tra nsmitted reference range : <=1.0. The reference r carolynn was not used to int erpret this result as normal/abnormal . [facility] CenterPlyhtemIEHMUIBWAC0577-23-20 21:03:00 Test Item Value Reference Range Interpretation Comments Neutrophils # (test code = Neutrophils 10.1 1.5-8.1 #) [facility] CenterFusxwrrITCGOYNGDC5925-35-54 21:03:00 Test Item Value Reference Range Interpretation Comments Lymphocytes # (test code = Lymphocytes 0.5 1.0-5.5 #) [facility] CenterVjegchaKJJWZACDOL6612-09-76 21:03:00 Test Item Value Reference Range Interpretation Comments Monocytes # (test code 0.3 See_Comment [Aut omated message] The = Monocytes #) system which generated this result tra nsmitted reference range : <=0.8. The reference r carolynn was not used to int erpret this result as normal/abnormal . [facility]JsguwllMASSIBDBPK7624-53-57 21:03:00 Test Item Value Reference Range Interpretation Comments Basophils # (test code 0.1 See_Comment [Aut omated message] The = Basophils #) system which generated this result tra nsmitted reference range : <=0.2. The reference r carolynn was not used to int erpret this result as normal/abnormal . [facility]CARAC KDVHFGM7459-74-80 21:03:00 Test Item Value Reference Range Interpretation Comments Troponin-I (test code = Troponin-I) no gt <=0.40 [facility] OEUOEXT4893-37-00 21:03:00 Test Item Value Reference Range Interpretation Comments BNP (test code = BNP) 75 [facility]CHE[facility] UQTNN1823-97-41 21:03:00 Test Item Value Reference Range Interpretation Comments Lipase Lvl (test code = Lipase Lvl) 130 73-393 [facility] HospitalCqnrtohRZQCYJLFURXC6228-17-73 21:03:00 Test Item Value Reference Range Interpretation Comments AGAP (test code = AGAP) 12.6 10.0-20.0 [facility] HospitalTqvzdvdZAEQAHEVYGRR4123-89-12 21:03:00 Test Item Value Reference Range Interpretation Comments B/C Ratio (test code = B/C Ratio) 16 1 6-25 [facility] HospitalRbmyxsxDBSPKHXXQZVD6278-07-72 21:03:00 Test Item Value Reference Range Interpretation Comments Globulin (test code = Globulin) 3.8 2.7-4.2 [facility] HospitalCptsohpSUVRGFJEYERI9577-63-00 21:03:00 Test Item Value Reference Range Interpretation Comments A/G Ratio (test code = A/G Ratio) 0.9 1 0.7-1.6 [facility] HospitalDxdpbwkUKAFXXZLTQKJ2147-93-88 21:03:00 Test Item Value Reference Range Interpretation Comments Glucose Lvl (test code = Glucose Lvl) 177 70-99 [facility] HospitalDwmdjtkXVFDQULGSNJR9461-80-55 21:03:00 Test Item Value Reference Range Interpretation Comments BUN (test code = BUN) 35 7-22 [facility] HospitalUeyruwcCJSTWOOJGQWW2784-26-79 21:03:00 Test Item Value Reference Range Interpretation Comments Creatinine Lvl (test code = Creatinine 2.24 0.50-1.40 Lvl) [facility] HospitalYhwvjphZARUVHJWDNED6808-30-75 21:03:00 Test Item Value Reference Range Interpretation Comments Sodium Lvl (test code = Sodium Lvl) 139 135-145 [facility] HospitalKhfynogWMSYSSIKSUOD5906-66-64 21:03:00 Test Item Value Reference Range Interpretation Comments Potassium Lvl (test code = Potassium 4.6 3.5-5.1 Lvl) [facility] HospitalFtefkikTUXCSOMBYERP7922-21-18 21:03:00 Test Item Value Reference Range Interpretation Comments Chloride Lvl (test code = Chloride Lvl) 105 95-109 [facility] HospitalWrebgvfZEEPBJNXBACD7685-67-90 21:03:00 Test Item Value Reference Range Interpretation Comments CO2 (test code = CO2) 26 24-32 [facility] HospitalFmntlwsEEJAKTCREYQF2309-84-87 21:03:00 Test Item Value Reference Range Interpretation Comments Calcium Lvl (test code = Calcium Lvl) 9.5 8.5-10.5 [facility] HospitalHfvdlcgXPUCMIVJBJJI9440-14-27 21:03:00 Test Item Value Reference Range Interpretation Comments Total Protein (test code = Total 7.2 6.4-8.4 Protein) [facility] HospitalPthbilrWURPGQSENGII9105-53-08 21:03:00 Test Item Value Reference Range Interpretation Comments Albumin Lvl (test code = Albumin Lvl) 3.4 3.5-5.0 [facility] HospitalNmxetwmFAJMKKTRRYRG4769-41-65 21:03:00 Test Item Value Reference Range Interpretation Comments ALT (test code = ALT) 28 <=65 [facility] HospitalQlgmdtlDJIFWKDERJWX1902-21-99 21:03:00 Test Item Value Reference Range Interpretation Comments AST (test code = AST) 22 <=37 [facility] HospitalVbaiffgUAVEKJWMHCDP5443-18-90 21:03:00 Test Item Value Reference Range Interpretation Comments Alk Phos (test code = Alk Phos) 82 39-136 [facility] HospitalPyorjqkWWJVSZCDTGGO5033-39-52 21:03:00 Test Item Value Reference Range Interpretation Comments Bili Total (test code = Bili Total) 0.4 0.2-1.3 [facility] HospitalWualaseARUDJUMWVPHE0382-71-93 21:03:00 Test Item Value Reference Range Interpretation Comments eGFR (test code = eGFR) 29 [facility] CenterCvjsbqnIVPUTUVJUM4782-34-58 21:03:00 Test Item Value Reference Range Interpretation Comments WBC (test code = WBC) 11.0 3.7-10.4 [facility] CenterSdugkaoHOURVMASWX4724-57-19 21:03:00 Test Item Value Reference Range Interpretation Comments RBC (test code = RBC) 4.22 4.70-6.10 [facility] CenterEmjfuqwASVDBLOZVY6327-01-37 21:03:00 Test Item Value Reference Range Interpretation Comments Hgb (test code = Hgb) 13.4 14.0-18.0 [facility] CenterAdttthiJPPTQZDITP3329-61-58 21:03:00 Test Item Value Reference Range Interpretation Comments Hct (test code = Hct) 40.2 42.0-54.0 [facility] CenterFjpgubkFPDBKYNSDY6017-98-55 21:03:00 Test Item Value Reference Range Interpretation Comments MCV (test code = MCV) 95.2 80.0-94.0 [facility] CenterGaztgwsSNAQBCZRKQ2668-72-05 21:03:00 Test Item Value Reference Range Interpretation Comments MCH (test code = MCH) 31.7 pg 27.0-31.0 [facility] CenterGbsbroxMEVQWFLNHW9069-17-39 21:03:00 Test Item Value Reference Range Interpretation Comments MCHC (test code = MCHC) 33.3 32.0-36.0 [facility] CenterBumzhvoPJLWHFPDAP1804-29-67 21:03:00 Test Item Value Reference Range Interpretation Comments RDW (test code = RDW) 14.3 11.5-14.5 [facility] CenterRgpqieyEDOWAWIMST6728-60-99 21:03:00 Test Item Value Reference Range Interpretation Comments Platelet (test code = Platelet) 286 133-450 [facility] CenterAlshqjdRMOWFDCNET4974-67-63 21:03:00 Test Item Value Reference Range Interpretation Comments MPV (test code = MPV) 8.5 7.4-10.4 [facility] CenterVmgnpvbWBWBPXYBXK8327-61-47 21:03:00 Test Item Value Reference Range Interpretation Comments Segs (test code = Segs) 91.9 45.0-75.0 [facility] CenterOktvvfdSTZQZGLCKL0722-43-96 21:03:00 Test Item Value Reference Range Interpretation Comments Lymphocytes (test code = Lymphocytes) 5.0 20.0-40.0 [facility] CenterYeubshrKNCXORCMKY2718-50-53 21:03:00 Test Item Value Reference Range Interpretation Comments Monocytes (test code = Monocytes) 2.4 2.0-12.0 [facility]GwfopmzSZFSDSBUCE7791-02-36 21:03:00 Test Item Value Reference Range Interpretation Comments Basophils (test code = Basophils) 0.7 <=1.0 [facility] HospitalGzlvrsfPLAHYSYOGU3023-87-41 21:03:00 Test Item Value Reference Range Interpretation Comments Neutrophils # (test code = Neutrophils 10.1 1.5-8.1 #) [facility] HospitalCoavchfYGHRNEBEQC1692-08-30 21:03:00 Test Item Value Reference Range Interpretation Comments Lymphocytes # (test code = Lymphocytes 0.5 1.0-5.5 #) [facility] HospitalFclrktxGBYVRTUEMK6043-36-03 21:03:00 Test Item Value Reference Range Interpretation Comments Monocytes # (test code = Monocytes #) 0.3 <=0.8 [facility] HospitalNikozffJZIAFOYMSS1582-53-26 21:03:00 Test Item Value Reference Range Interpretation Comments Basophils # (test code = Basophils #) 0.1 <=0.2 [facility] ZVLHRAY9956-83-11 21:03:00 Test Item Value Reference Range Interpretation Comments Troponin-I (test code = Troponin-I) no gt <=0.40 [facility] QQAKYYY6370-37-97 21:03:00 Test Item Value Reference Range Interpretation Comments BNP (test code = BNP) 75 [facility]CHE[facility] XLMWS9980-15-93 21:03:00 Test Item Value Reference Range Interpretation Comments Lipase Lvl (test code = Lipase Lvl) 130 73-393 [facility] HospitalOzvfllkIOJKDDIHOBWK2630-45-07 21:03:00 Test Item Value Reference Range Interpretation Comments AGAP (test code = AGAP) 12.6 10.0-20.0 [facility] HospitalDvvsmpkNYPCKPSNOHYT8871-92-71 21:03:00 Test Item Value Reference Range Interpretation Comments B/C Ratio (test code = B/C Ratio) 16 1 6-25 [facility] HospitalOzmzvfaEXAKJGHWXION0097-22-91 21:03:00 Test Item Value Reference Range Interpretation Comments Globulin (test code = Globulin) 3.8 2.7-4.2 [facility] HospitalAmdowwbTIYABRHUTJDD1558-80-82 21:03:00 Test Item Value Reference Range Interpretation Comments A/G Ratio (test code = A/G Ratio) 0.9 1 0.7-1.6 [facility]PlugjppUHUUTFVUMUMT2764-10-44 21:03:00 Test Item Value Reference Range Interpretation Comments Glucose Lvl (test code = Glucose Lvl) 177 70-99 [facility] HospitalFwzbqoyUQRHYUAZTQGB7651-67-16 21:03:00 Test Item Value Reference Range Interpretation Comments BUN (test code = BUN) 35 7-22 [facility] HospitalLcacftqBCUFDOXXPPAS8327-15-34 21:03:00 Test Item Value Reference Range Interpretation Comments Creatinine Lvl (test code = Creatinine 2.24 0.50-1.40 Lvl) [facility] HospitalQzhbrwcRNSAGFPZNCRM2371-81-63 21:03:00 Test Item Value Reference Range Interpretation Comments Sodium Lvl (test code = Sodium Lvl) 139 135-145 [facility] HospitalPovwovlOOOTSXUCUFKE5171-42-53 21:03:00 Test Item Value Reference Range Interpretation Comments Potassium Lvl (test code = Potassium 4.6 3.5-5.1 Lvl) [facility] HospitalZqifetzCKTCDOQZTKYQ5221-28-79 21:03:00 Test Item Value Reference Range Interpretation Comments Chloride Lvl (test code = Chloride Lvl) 105 95-109 [facility] HospitalIxycfepEUUQZMMQLSMN5406-27-29 21:03:00 Test Item Value Reference Range Interpretation Comments CO2 (test code = CO2) 26 24-32 [facility] HospitalLvoxwogYTNBAMBEPDMF5098-68-84 21:03:00 Test Item Value Reference Range Interpretation Comments Calcium Lvl (test code = Calcium Lvl) 9.5 8.5-10.5 [facility] HospitalIywalcmBHTWUIROFXES6384-17-72 21:03:00 Test Item Value Reference Range Interpretation Comments Total Protein (test code = Total 7.2 6.4-8.4 Protein) [facility] HospitalOrvgadbXQQOCENTTBFZ4677-26-32 21:03:00 Test Item Value Reference Range Interpretation Comments Albumin Lvl (test code = Albumin Lvl) 3.4 3.5-5.0 [facility] HospitalDlbxnppOUGLLGYJWWMD3732-14-64 21:03:00 Test Item Value Reference Range Interpretation Comments ALT (test code = ALT) 28 <=65 [facility] HospitalBwfcjjsVRIHSVNPVYEE0739-46-86 21:03:00 Test Item Value Reference Range Interpretation Comments AST (test code = AST) 22 <=37 [facility] HospitalUcyxzndQGCUIQRBGIHU8000-19-57 21:03:00 Test Item Value Reference Range Interpretation Comments Alk Phos (test code = Alk Phos) 82 39-136 [facility] HospitalOgiofnyKDDKCOSYXMAD2426-32-89 21:03:00 Test Item Value Reference Range Interpretation Comments Bili Total (test code = Bili Total) 0.4 0.2-1.3 [facility] HospitalJvbaugdEDITPBHFEWFC8005-11-81 21:03:00 Test Item Value Reference Range Interpretation Comments eGFR (test code = eGFR) 29 [facility] CenterVweayqmUKJLDCRVSE1948-89-58 21:03:00 Test Item Value Reference Range Interpretation Comments WBC (test code = WBC) 11.0 3.7-10.4 [facility] CenterMrfjxvpFGJPDBZXIJ7097-95-71 21:03:00 Test Item Value Reference Range Interpretation Comments RBC (test code = RBC) 4.22 4.70-6.10 [facility] CenterVswdpcnJJRFVUBABA5902-75-91 21:03:00 Test Item Value Reference Range Interpretation Comments Hgb (test code = Hgb) 13.4 14.0-18.0 [facility] CenterOgglqguJRHJSBLOAB9972-13-27 21:03:00 Test Item Value Reference Range Interpretation Comments Hct (test code = Hct) 40.2 42.0-54.0 [facility] CenterEptodyrXPSISXQSMU5676-69-00 21:03:00 Test Item Value Reference Range Interpretation Comments MCV (test code = MCV) 95.2 80.0-94.0 [facility] CenterLmwgasmYZXABRUALX9190-74-97 21:03:00 Test Item Value Reference Range Interpretation Comments MCH (test code = MCH) 31.7 pg 27.0-31.0 [facility] CenterZsitjovMHWNUBPEHP2919-24-16 21:03:00 Test Item Value Reference Range Interpretation Comments MCHC (test code = MCHC) 33.3 32.0-36.0 [facility] CenterYhgdfviUTLLRHTXCC8525-83-61 21:03:00 Test Item Value Reference Range Interpretation Comments RDW (test code = RDW) 14.3 11.5-14.5 [facility] CenterXimlirnJEXAFQGWHN1443-93-91 21:03:00 Test Item Value Reference Range Interpretation Comments Platelet (test code = Platelet) 286 133-450 [facility] CenterSmirjbzXHBXFZRHGH1486-74-88 21:03:00 Test Item Value Reference Range Interpretation Comments MPV (test code = MPV) 8.5 7.4-10.4 [facility] HospitalRxyiccxNSGUPEYMHS9440-06-08 21:03:00 Test Item Value Reference Range Interpretation Comments Segs (test code = Segs) 91.9 45.0-75.0 [facility]EtnhodnODTCBFNFFY6671-89-90 21:03:00 Test Item Value Reference Range Interpretation Comments Lymphocytes (test code = Lymphocytes) 5.0 20.0-40.0 [facility] HospitalJykwgsgGSVEYHGAHJ6648-74-73 21:03:00 Test Item Value Reference Range Interpretation Comments Monocytes (test code = Monocytes) 2.4 2.0-12.0 [facility] HospitalUzvtivyTJXGETJSWE8865-94-42 21:03:00 Test Item Value Reference Range Interpretation Comments Basophils (test code = Basophils) 0.7 <=1.0 [facility]GsdxjpbSORXHFINGE4474-71-88 21:03:00 Test Item Value Reference Range Interpretation Comments Neutrophils # (test code = Neutrophils 10.1 1.5-8.1 #) [facility] HospitalCimmjdvTEJDTKJRUW4412-88-99 21:03:00 Test Item Value Reference Range Interpretation Comments Lymphocytes # (test code = Lymphocytes 0.5 1.0-5.5 #) [facility]YqqmkplTXUDCGZLFO8609-29-58 21:03:00 Test Item Value Reference Range Interpretation Comments Monocytes # (test code = Monocytes #) 0.3 <=0.8 [facility] HospitalZyhhdnhMXRPDAJPFF5297-99-50 21:03:00 Test Item Value Reference Range Interpretation Comments Basophils # (test code = Basophils #) 0.1 <=0.2 [facility] HNFIGBD2847-97-28 21:03:00 Test Item Value Reference Range Interpretation Comments Troponin-I (test code = Troponin-I) no gt <=0.40 [facility] PSYCTEC4808-98-68 21:03:00 Test Item Value Reference Range Interpretation Comments BNP (test code = BNP) 75 [facility]annCHEM ZLZJC9332-01-91 21:03:00 Test Item Value Reference Range Interpretation Comments Lipase Lvl (test code = Lipase Lvl) 130 73-393 [facility] HospitalDsizuebXPBPTGYQVGFS4002-43-81 21:03:00 Test Item Value Reference Range Interpretation Comments AGAP (test code = AGAP) 12.6 10.0-20.0 [facility] HospitalFjovsykNSZMPWXYLUJM1538-66-38 21:03:00 Test Item Value Reference Range Interpretation Comments B/C Ratio (test code = B/C Ratio) 16 1 6-25 [facility] HospitalFkakurbLXCJLYCXJNNB4095-92-55 21:03:00 Test Item Value Reference Range Interpretation Comments Globulin (test code = Globulin) 3.8 2.7-4.2 [facility] HospitalSabogxfGPZJPNGVDLID9784-49-24 21:03:00 Test Item Value Reference Range Interpretation Comments A/G Ratio (test code = A/G Ratio) 0.9 1 0.7-1.6 [facility] HospitalJmoaqzsGMFTTNHSXABU6455-63-06 21:03:00 Test Item Value Reference Range Interpretation Comments Glucose Lvl (test code = Glucose Lvl) 177 70-99 [facility] HospitalWzbjtbwLDCPSNDQVNKE2573-76-08 21:03:00 Test Item Value Reference Range Interpretation Comments BUN (test code = BUN) 35 7-22 [facility] HospitalGwiyzfrJKXFGMYQWCUP7022-66-50 21:03:00 Test Item Value Reference Range Interpretation Comments Creatinine Lvl (test code = Creatinine 2.24 0.50-1.40 Lvl) [facility] HospitalDnyltmlBEUTSIUHHUXT0417-73-58 21:03:00 Test Item Value Reference Range Interpretation Comments Sodium Lvl (test code = Sodium Lvl) 139 135-145 [facility] HospitalKqzhdwwXPDOGRMKVEOD5589-49-01 21:03:00 Test Item Value Reference Range Interpretation Comments Potassium Lvl (test code = Potassium 4.6 3.5-5.1 Lvl) [facility] HospitalWuorqgsOJJWFVPPZMPS8022-94-70 21:03:00 Test Item Value Reference Range Interpretation Comments Chloride Lvl (test code = Chloride Lvl) 105 95-109 [facility] HospitalDrwexuyEPEEJIXHLERE9434-22-13 21:03:00 Test Item Value Reference Range Interpretation Comments CO2 (test code = CO2) 26 24-32 [facility] HospitalQdxudtnYFYUQGSKCOTY1489-71-44 21:03:00 Test Item Value Reference Range Interpretation Comments Calcium Lvl (test code = Calcium Lvl) 9.5 8.5-10.5 [facility] HospitalEhekavyYCVDYZTEMFOI5840-95-49 21:03:00 Test Item Value Reference Range Interpretation Comments Total Protein (test code = Total 7.2 6.4-8.4 Protein) [facility] HospitalRtnturbAQDKQDKGYNMU9305-99-58 21:03:00 Test Item Value Reference Range Interpretation Comments Albumin Lvl (test code = Albumin Lvl) 3.4 3.5-5.0 [facility] HospitalFzlxozuDZCMPZEAOTAZ8051-17-95 21:03:00 Test Item Value Reference Range Interpretation Comments ALT (test code = ALT) 28 <=65 [facility] HospitalIozmtifLQNZLABBZJIT3256-74-84 21:03:00 Test Item Value Reference Range Interpretation Comments AST (test code = AST) 22 <=37 [facility] HospitalQhqezvbSDCBYZCAJWRX6377-26-22 21:03:00 Test Item Value Reference Range Interpretation Comments Alk Phos (test code = Alk Phos) 82 39-136 [facility] HospitalUurklmrFJUTLRJSZWVX1031-91-22 21:03:00 Test Item Value Reference Range Interpretation Comments Bili Total (test code = Bili Total) 0.4 0.2-1.3 [facility] HospitalGeztigsQSFUQAPHRDHE0546-49-83 21:03:00 Test Item Value Reference Range Interpretation Comments eGFR (test code = eGFR) 29 [facility] CenterMzkmxftRKGUGGHCPT7277-88-32 21:03:00 Test Item Value Reference Range Interpretation Comments WBC (test code = WBC) 11.0 3.7-10.4 [facility] CenterJnbrukaEDHWSWSIUU7079-89-52 21:03:00 Test Item Value Reference Range Interpretation Comments RBC (test code = RBC) 4.22 4.70-6.10 [facility] CenterOzlitdmUDFAZMIQXZ1156-42-79 21:03:00 Test Item Value Reference Range Interpretation Comments Hgb (test code = Hgb) 13.4 14.0-18.0 [facility] CenterVjqhharLHCFPHKPRI6333-62-95 21:03:00 Test Item Value Reference Range Interpretation Comments Hct (test code = Hct) 40.2 42.0-54.0 [facility] CenterFsxuxmmDDVKBWSDGL3936-04-83 21:03:00 Test Item Value Reference Range Interpretation Comments MCV (test code = MCV) 95.2 80.0-94.0 [facility] CenterQudlcltGGYCENYUBU4718-69-56 21:03:00 Test Item Value Reference Range Interpretation Comments MCH (test code = MCH) 31.7 pg 27.0-31.0 [facility] CenterOjqaxvsVPNRECVZLS3564-94-63 21:03:00 Test Item Value Reference Range Interpretation Comments MCHC (test code = MCHC) 33.3 32.0-36.0 [facility]FzdrgfgFZIAJANMED4504-83-32 21:03:00 Test Item Value Reference Range Interpretation Comments RDW (test code = RDW) 14.3 11.5-14.5 [facility] HospitalFifaykiENTASFPXXA1481-84-17 21:03:00 Test Item Value Reference Range Interpretation Comments Platelet (test code = Platelet) 286 133-450 [facility] HospitalZhbcmmzHSMJIGTJRU9550-72-88 21:03:00 Test Item Value Reference Range Interpretation Comments MPV (test code = MPV) 8.5 7.4-10.4 [facility] HospitalTiqktddPKFDWMNRJC1815-28-40 21:03:00 Test Item Value Reference Range Interpretation Comments Segs (test code = Segs) 91.9 45.0-75.0 [facility] HospitalBkvgyyjDYSEEYOJTW7416-79-64 21:03:00 Test Item Value Reference Range Interpretation Comments Lymphocytes (test code = Lymphocytes) 5.0 20.0-40.0 [facility] HospitalBflddirMDEORZYRQF8452-31-05 21:03:00 Test Item Value Reference Range Interpretation Comments Monocytes (test code = Monocytes) 2.4 2.0-12.0 [facility] HospitalMglwwjiVLZLPWTIWE0005-73-30 21:03:00 Test Item Value Reference Range Interpretation Comments Basophils (test code = Basophils) 0.7 <=1.0 [facility] HospitalZkqgajxDBQUVCRRGK5325-80-93 21:03:00 Test Item Value Reference Range Interpretation Comments Neutrophils # (test code = Neutrophils 10.1 1.5-8.1 #) [facility] HospitalCkjdgguMUFVXVCBQH2611-10-04 21:03:00 Test Item Value Reference Range Interpretation Comments Lymphocytes # (test code = Lymphocytes 0.5 1.0-5.5 #) [facility] HospitalDovqhqjXEAFVHHOYU7005-23-79 21:03:00 Test Item Value Reference Range Interpretation Comments Monocytes # (test code = Monocytes #) 0.3 <=0.8 [facility]qblAEETGIVOEP0067-30-64 21:03:00 Test Item Value Reference Range Interpretation Comments Basophils # (test code = Basophils #) 0.1 <=0.2 [facility]2016-07-28 23:00:00 Test Item Value Reference Range Interpretation Comments Occult Bld Stl (test Negative (09/29/15 6:00 code = Occult Bld Stl) PM) [facility] [id number] 23:00:00 Test Item Value Reference Range Interpretation Comments Occult Bld Stl (test Negative (09/29/15 6:00 code = Occult Bld Stl) PM) [facility] [id number] 23:00:00 Test Item Value Reference Range Interpretation Comments Occult Bld Stl (test Negative (09/29/15 6:00 code = Occult Bld Stl) PM) [facility] [id number] 23:00:00 Test Item Value Reference Range Interpretation Comments Occult Bld Stl (test Negative (09/29/15 6:00 code = Occult Bld Stl) PM) [facility] [id number] 23:00:00 Test Item Value Reference Range Interpretation Comments Occult Bld Stl (test Negative (09/29/15 6:00 code = Occult Bld Stl) PM) [facility] [id number] 23:00:00 Test Item Value Reference Range Interpretation Comments Occult Bld Stl (test Negative (09/29/15 6:00 code = Occult Bld Stl) PM) [facility] [id number] 23:00:00 Test Item Value Reference Range Interpretation Comments Occult Bld Stl (test Negative (09/29/15 6:00 code = Occult Bld Stl) PM) [facility] [id number] 23:00:00 Test Item Value Reference Range Interpretation Comments Occult Bld Stl (test Negative (09/29/15 6:00 code = Occult Bld Stl) PM) [facility]annCHEM [id number] 13:12:00 Test Item Value Reference Range Interpretation Comments Uric Acid (test code = Uric Acid) 7.9 3.8-8.0 [facility] GcossieWNFJOOGKSEFS7581-30-32 13:12:00 Test Item Value Reference Range Interpretation Comments AGAP (test code = AGAP) 11.5 10.0-20.0 [facility]KksgiquNDLVXGZZIYZA1021-48-88 13:12:00 Test Item Value Reference Range Interpretation Comments B/C Ratio (test code = B/C Ratio) 20 6-25 [facility] HospitalZtpsitlAZIAEQVZEAAT7150-19-65 13:12:00 Test Item Value Reference Range Interpretation Comments Globulin (test code = Globulin) 3.2 2.0-4.0 [facility]RzglywnTMLSQUQZBNIG7057-32-24 13:12:00 Test Item Value Reference Range Interpretation Comments A/G Ratio (test code = A/G Ratio) 1.4 0.7-1.6 [facility] HospitalQbvjmszLZEGCVIMXZTY5223-83-79 13:12:00 Test Item Value Reference Range Interpretation Comments eGFR (test code = eGFR) 49 [facility] HospitalAivyzpnJPUFXWLZBNMM2899-36-83 13:12:00 Test Item Value Reference Range Interpretation Comments Bili Total (test code = Bili Total) 0.5 0.2-1.3 [facility] HospitalAtvzherRWSWHTXPMVZE3879-92-00 13:12:00 Test Item Value Reference Range Interpretation Comments Sodium Lvl (test code = Sodium Lvl) 140 135-145 [facility] HospitalSvsupgaKNIWCEYHSIUM3917-72-98 13:12:00 Test Item Value Reference Range Interpretation Comments Creatinine Lvl (test code = Creatinine 1.48 0.50-1.40 Lvl) [facility] HospitalOjddpltJYTBFSZOXCAH4493-27-01 13:12:00 Test Item Value Reference Range Interpretation Comments BUN (test code = BUN) 29 7-22 [facility] HospitalJpdrcuuPUYKYOSSUHZU0708-61-46 13:12:00 Test Item Value Reference Range Interpretation Comments Glucose Lvl (test code = Glucose Lvl) 123 70-99 [facility] HospitalEjkeayaXGXFVAZYYOJO1234-17-44 13:12:00 Test Item Value Reference Range Interpretation Comments ALT (test code = ALT) 20 See_Comment [Auto mated message] The system which ge nerated this result transmit todd reference range : <=65. The reference range was not used to interpr et this result as kimberli l/abnormal. [facility] HospitalXghlcrkOXLNTVTGXBBG5325-67-54 13:12:00 Test Item Value Reference Range Interpretation Comments AST (test code = AST) 9 See_Comment [Auto mated message] The system which ge nerated this result transmit todd reference range : <=37. The reference range was not used to interpr et this result as kimberli l/abnormal. [facility] HospitalSmznvggKPMFMCGRWVUY9643-67-09 13:12:00 Test Item Value Reference Range Interpretation Comments Alk Phos (test code = Alk Phos) 76 39-136 [facility] HospitalDdzuwqaNOGKLVLYWWLD9800-07-95 13:12:00 Test Item Value Reference Range Interpretation Comments Calcium Lvl (test code = Calcium Lvl) 9.2 8.5-10.5 [facility] HospitalRctiseqDWTPXNQUEUNR6211-85-48 13:12:00 Test Item Value Reference Range Interpretation Comments Albumin Lvl (test code = Albumin Lvl) 4.4 3.5-5.0 [facility] HospitalXutunlqGBQTSWUIHZPI5747-26-13 13:12:00 Test Item Value Reference Range Interpretation Comments Potassium Lvl (test code = Potassium 4.5 3.5-5.1 Lvl) [facility] HospitalCcfurniYGKBSDTWSHWX7253-67-41 13:12:00 Test Item Value Reference Range Interpretation Comments Total Protein (test code = Total 7.6 6.4-8.4 Protein) [facility] HospitalEmjebdqDSMHSIQPRTIB6040-22-41 13:12:00 Test Item Value Reference Range Interpretation Comments CO2 (test code = CO2) 28 24-32 [facility] HospitalXqyihyhFKGEBTDXABPK3111-14-72 13:12:00 Test Item Value Reference Range Interpretation Comments Chloride Lvl (test code = Chloride Lvl) 105 95-109 [facility]GcsorpzEIAZTGWSBI2166-14-08 13:12:00 Test Item Value Reference Range Interpretation Comments Segs (test code = Segs) 60.0 45.0-75.0 [facility] CenterXggjzkdYMFZHFOFUH5679-71-97 13:12:00 Test Item Value Reference Range Interpretation Comments Eosinophils (test code = 3.3 See_Comment [A utomated message] The Eosinophils) system which ge nerated this result tra nsmitted reference range : <=4.0. The reference r carolynn was not used to int erpret this result as normal/abnormal . [facility] CenterQmxkmqmWTHVQMOAWR6310-34-08 13:12:00 Test Item Value Reference Range Interpretation Comments Monocytes (test code = Monocytes) 8.1 2.0-12.0 [facility] CenterSilrjsqIQYPLDOPPV8800-87-69 13:12:00 Test Item Value Reference Range Interpretation Comments Lymphocytes (test code = Lymphocytes) 27.4 20.0-40.0 [facility] CenterXncecqyNAASJXHIDI4754-38-21 13:12:00 Test Item Value Reference Range Interpretation Comments Monocytes # (test code 0.5 See_Comment [Aut omated message] The = Monocytes #) system which generated this result tra nsmitted reference range : <=0.8. The reference r carolynn was not used to int erpret this result as normal/abnormal . [facility] CenterJqbffvlDUNOGUKIDJ6000-66-53 13:12:00 Test Item Value Reference Range Interpretation Comments Basophils (test code = 1.2 See_Comment [Aut omated message] The Basophils) system which ge nerated this result tra nsmitted reference range : <=1.0. The reference r carolynn was not used to int erpret this result as normal/abnormal . [facility] CenterWpiegcxYQJHOKDEKZ2901-10-77 13:12:00 Test Item Value Reference Range Interpretation Comments Lymphocytes # (test code = Lymphocytes 1.7 1.0-5.5 #) [facility] CenterQrjwxwcZHSMSFUXII9288-83-35 13:12:00 Test Item Value Reference Range Interpretation Comments Segs-Bands # (test code = Segs-Bands #) 3.6 1.5-8.1 [facility] CenterFufrxqlCJRRIUEMTO3240-77-58 13:12:00 Test Item Value Reference Range Interpretation Comments Eosinophils # (test code 0.2 See_Comment [A utomated message] The = Eosinophils #) system whic h generated this result tra nsmitted reference range : <=0.5. The reference r carolynn was not used to int erpret this result as normal/abnormal . [facility] CenterBithiarPYFWTABACB9222-36-10 13:12:00 Test Item Value Reference Range Interpretation Comments Basophils # (test code 0.1 See_Comment [Aut omated message] The = Basophils #) system which generated this result tra nsmitted reference range : <=0.2. The reference r carolynn was not used to int erpret this result as normal/abnormal . [facility] CenterJidzgexZJXATMHOCM4301-54-68 13:12:00 Test Item Value Reference Range Interpretation Comments Hgb (test code = Hgb) 13.9 14.0-18.0 [facility] CenterYsppfblHJPAYTWRTV1598-87-19 13:12:00 Test Item Value Reference Range Interpretation Comments RBC (test code = RBC) 4.57 4.70-6.10 [facility] CenterOhoplmsQPDLIYAFIE6278-65-91 13:12:00 Test Item Value Reference Range Interpretation Comments WBC (test code = WBC) 6.1 3.7-10.4 [place] [id number] 13:12:00 Test Item Value Reference Range Interpretation Comments Hct (test code = Hct) 40.6 42.0-54.0 [facility] CenterZnvhzloUVQHARWJJH3821-17-89 13:12:00 Test Item Value Reference Range Interpretation Comments MCH (test code = MCH) 30.4 pg 27.0-31.0 [facility] CenterZplysxwHJOVWJXZNR9825-00-34 13:12:00 Test Item Value Reference Range Interpretation Comments MCV (test code = MCV) 88.9 80.0-94.0 [facility]TtqpvjyOGOQEGBZTK2984-08-99 13:12:00 Test Item Value Reference Range Interpretation Comments MCHC (test code = MCHC) 34.2 32.0-36.0 [facility] CenterJdlbyujWKTGFQRGIE6146-19-09 13:12:00 Test Item Value Reference Range Interpretation Comments Platelet (test code = Platelet) 196 133-450 [facility] CenterDxlmfyoACLPWVOXQM2909-47-14 13:12:00 Test Item Value Reference Range Interpretation Comments RDW (test code = RDW) 13.7 11.5-14.5 [facility] CenterNgyaxurISFSNTUWHN5104-78-64 13:12:00 Test Item Value Reference Range Interpretation Comments MPV (test code = MPV) 8.5 7.4-10.4 [facility]PrwszoxPEZNUG8008-33-94 13:12:00 Test Item Value Reference Range Interpretation Comments HDL (test code = HDL) 75 [facility]PkdixaqLGIHVH7263-02-23 13:12:00 Test Item Value Reference Range Interpretation Comments Chol (test code = Chol) 143 [facility]OnvvrhxNGJOTU2319-16-22 13:12:00 Test Item Value Reference Range Interpretation Comments VLDL (test code = VLDL) 19 [facility] HospitalPavqyfzJOVMAU7943-41-10 13:12:00 Test Item Value Reference Range Interpretation Comments Trig (test code = Trig) 94 [facility] HospitalRjuqouiCAZBOL8338-15-22 13:12:00 Test Item Value Reference Range Interpretation Comments LDL (Calculated) (test code = LDL 49 (Calculated)) [facility]HbcvzglQBBMOM9506-80-40 13:12:00 Test Item Value Reference Range Interpretation Comments CHD Risk (test code = CHD Risk) 1.91 4.00-7.30 [facility] NMPOQAXOI1167[facility]95-53 13:12:00 Test Item Value Reference Range Interpretation Comments Hgb A1C (test code = Hgb A1C) 6.9 [facility] AND [id number] 13:12:00 Test Item Value Reference Range Interpretation Comments UA Color (test code = UA Color) Ltyellow [facility] AND [id number] 13:12:00 Test Item Value Reference Range Interpretation Comments UA Urobilinogen (test code = UA <=1.0 mg/dL 0.1-1.0 Urobilinogen) [facility] AND [id number] 13:12:00 Test Item Value Reference Range Interpretation Comments UA Ketones (test code = UA Negative mg/dL Ketones) [facility] AND [id number] 13:12:00 Test Item Value Reference Range Interpretation Comments UA Glucose (test code = UA Negative mg/dL Glucose) [facility] AND [id number] 13:12:00 Test Item Value Reference Range Interpretation Comments UA Protein (test code = UA Protein) 100 mg/dL [facility] AND [id number] 13:12:00 Test Item Value Reference Range Interpretation Comments UA Leuk Est (test Negative (09/28/15 8:12 code = UA Leuk Est) AM) [facility] AND [id number] 13:12:00 Test Item Value Reference Range Interpretation Comments UA Nitrite (test code Negative (09/28/15 8:12 = UA Nitrite) AM) [facility] AND [id number] 13:12:00 Test Item Value Reference Range Interpretation Comments UA Bili (test code = Negative *NA*(09/28/15 UA Bili) 8:12 AM) [facility] AND [id number] 13:12:00 Test Item Value Reference Range Interpretation Comments UA Sq Epi (test code = UA Sq Epi) None Seen [facility] AND [id number] 13:12:00 Test Item Value Reference Range Interpretation Comments UA Blood (test code = Negative (09/28/15 8:12 UA Blood) AM) [facility] AND [id number] 13:12:00 Test Item Value Reference Range Interpretation Comments UA pH (test code = UA pH) 6.0 5.0-8.0 [facility] AND [id number] 13:12:00 Test Item Value Reference Range Interpretation Comments UA Spec Grav (test code = UA Spec Grav) 1.010 [facility]ann[facility] [id number] 13:12:00 Test Item Value Reference Range Interpretation Comments UA Turbidity (test code = Clear (09/28/15 8:12 UA Turbidity) AM) [facility] [id number] 13:12:00 Test Item Value Reference Range Interpretation Comments U Alb/Crea (test code = U Alb/Crea) 712.8 [facility] [id number] 13:12:00 Test Item Value Reference Range Interpretation Comments U Microalb (test code = U Microalb) 345.0 [facility] [id number] 13:12:00 Test Item Value Reference Range Interpretation Comments U Creatinine (test code = U Creatinine) 48.40 [facility]CHE[facility] [id number] 13:12:00 Test Item Value Reference Range Interpretation Comments Uric Acid (test code = Uric Acid) 7.9 3.8-8.0 [facility]QolyxnrOJKVDIWNEOBC9852-28-95 13:12:00 Test Item Value Reference Range Interpretation Comments AGAP (test code = AGAP) 11.5 10.0-20.0 [facility]TwxjcixZXGKXNNXCDSN8867-22-80 13:12:00 Test Item Value Reference Range Interpretation Comments B/C Ratio (test code = B/C Ratio) 20 6-25 [facility] HospitalSctsqxjSVJHXVVYLSUW1545-45-48 13:12:00 Test Item Value Reference Range Interpretation Comments Globulin (test code = Globulin) 3.2 2.0-4.0 [facility] CenterDwhmcsvFHEKDODZNZMY4921-38-88 13:12:00 Test Item Value Reference Range Interpretation Comments A/G Ratio (test code = A/G Ratio) 1.4 0.7-1.6 [facility] CenterBbxjcivGEOWMCMUDIAF3120-76-73 13:12:00 Test Item Value Reference Range Interpretation Comments eGFR (test code = eGFR) 49 [facility] HospitalNnqvlosNYEKYJBTFYCP7782-15-96 13:12:00 Test Item Value Reference Range Interpretation Comments Bili Total (test code = Bili Total) 0.5 0.2-1.3 [facility] HospitalAqlrepnNCFRCWWQHJIC8311-67-01 13:12:00 Test Item Value Reference Range Interpretation Comments Sodium Lvl (test code = Sodium Lvl) 140 135-145 [facility] HospitalZdmjkpiFZUPBYGPOZZZ8953-07-42 13:12:00 Test Item Value Reference Range Interpretation Comments Creatinine Lvl (test code = Creatinine 1.48 0.50-1.40 Lvl) [facility] HospitalGatlsxbDQWHHJWVDESH5884-41-35 13:12:00 Test Item Value Reference Range Interpretation Comments BUN (test code = BUN) 29 7-22 [facility] HospitalPtqizmiGHAWGPIAQRWJ2577-52-53 13:12:00 Test Item Value Reference Range Interpretation Comments Glucose Lvl (test code = Glucose Lvl) 123 70-99 [facility] HospitalZtiklsaSZPQQOGTXQFE7314-43-04 13:12:00 Test Item Value Reference Range Interpretation Comments ALT (test code = ALT) 20 See_Comment [Auto mated message] The system which ge nerated this result transmit todd reference range : <=65. The reference range was not used to interpr et this result as kimberli l/abnormal. [facility] HospitalGuhixgvLMECXLXHLUXW7308-59-62 13:12:00 Test Item Value Reference Range Interpretation Comments AST (test code = AST) 9 See_Comment [Auto mated message] The system which ge nerated this result transmit todd reference range : <=37. The reference range was not used to interpr et this result as kimberli l/abnormal. [facility] HospitalPzdykwyCHMYZQDGUUMH0539-79-36 13:12:00 Test Item Value Reference Range Interpretation Comments Alk Phos (test code = Alk Phos) 76 39-136 [facility] HospitalZbcbmmcLBMYTCRMRSBE0509-73-36 13:12:00 Test Item Value Reference Range Interpretation Comments Calcium Lvl (test code = Calcium Lvl) 9.2 8.5-10.5 [facility] HospitalUvtxtipGKMKWZBASHZD8529-35-58 13:12:00 Test Item Value Reference Range Interpretation Comments Albumin Lvl (test code = Albumin Lvl) 4.4 3.5-5.0 [facility] HospitalRkoilyjMTPJIMKAVGZB3810-08-22 13:12:00 Test Item Value Reference Range Interpretation Comments Potassium Lvl (test code = Potassium 4.5 3.5-5.1 Lvl) [facility] HospitalDogvzbbYQRZUMFPKQNP8592-16-75 13:12:00 Test Item Value Reference Range Interpretation Comments Total Protein (test code = Total 7.6 6.4-8.4 Protein) [facility] HospitalLmwsdutWNRYEAZDYOMC2961-47-15 13:12:00 Test Item Value Reference Range Interpretation Comments CO2 (test code = CO2) 28 24-32 [facility] HospitalPiqzomqIHVMDGRMNZOJ4333-84-83 13:12:00 Test Item Value Reference Range Interpretation Comments Chloride Lvl (test code = Chloride Lvl) 105 95-109 [facility] CenterJtzdogxAXFAVYWXZV8947-35-59 13:12:00 Test Item Value Reference Range Interpretation Comments Segs (test code = Segs) 60.0 45.0-75.0 [facility] CenterEqqproeFFGOFSSBBD4035-79-79 13:12:00 Test Item Value Reference Range Interpretation Comments Eosinophils (test code = 3.3 See_Comment [A utomated message] The Eosinophils) system which ge nerated this result tra nsmitted reference range : <=4.0. The reference r carolynn was not used to int erpret this result as normal/abnormal . [facility] CenterVgzntbhZJVXKMBNOB7023-79-52 13:12:00 Test Item Value Reference Range Interpretation Comments Monocytes (test code = Monocytes) 8.1 2.0-12.0 [facility] CenterNrcdgnkZAZFRTRAHF9677-68-33 13:12:00 Test Item Value Reference Range Interpretation Comments Lymphocytes (test code = Lymphocytes) 27.4 20.0-40.0 [facility] CenterCcqtpjtDVPGOYCPVK2153-46-06 13:12:00 Test Item Value Reference Range Interpretation Comments Monocytes # (test code 0.5 See_Comment [Aut omated message] The = Monocytes #) system which generated this result tra nsmitted reference range : <=0.8. The reference r carolynn was not used to int erpret this result as normal/abnormal . [facility] CenterDswyntnWVJQMTFLDZ4060-61-42 13:12:00 Test Item Value Reference Range Interpretation Comments Basophils (test code = 1.2 See_Comment [Aut omated message] The Basophils) system which ge nerated this result tra nsmitted reference range : <=1.0. The reference r carolynn was not used to int erpret this result as normal/abnormal . [facility] CenterJgdrznzLPITYIDUOF0100-94-70 13:12:00 Test Item Value Reference Range Interpretation Comments Lymphocytes # (test code = Lymphocytes 1.7 1.0-5.5 #) [facility] CenterToejehqVIJBWDLHYG3268-29-51 13:12:00 Test Item Value Reference Range Interpretation Comments Segs-Bands # (test code = Segs-Bands #) 3.6 1.5-8.1 [facility] CenterKzsyznoQGDLVGZIWC7578-62-56 13:12:00 Test Item Value Reference Range Interpretation Comments Eosinophils # (test code 0.2 See_Comment [A utomated message] The = Eosinophils #) system whic h generated this result tra nsmitted reference range : <=0.5. The reference r carolynn was not used to int erpret this result as normal/abnormal . [facility] CenterTtyvrlbQAVYZPCUUJ4172-82-98 13:12:00 Test Item Value Reference Range Interpretation Comments Basophils # (test code 0.1 See_Comment [Aut omated message] The = Basophils #) system which generated this result tra nsmitted reference range : <=0.2. The reference r carolynn was not used to int erpret this result as normal/abnormal . [facility] CenterAcxqpprAHPMTXMEHK2891-07-95 13:12:00 Test Item Value Reference Range Interpretation Comments Hgb (test code = Hgb) 13.9 14.0-18.0 [facility] CenterZjmtlukRMTGSZMWRW7954-44-71 13:12:00 Test Item Value Reference Range Interpretation Comments RBC (test code = RBC) 4.57 4.70-6.10 [facility] CenterJdzjmdtFVFTOMSMGV0866-39-72 13:12:00 Test Item Value Reference Range Interpretation Comments WBC (test code = WBC) 6.1 3.7-10.4 [facility] CenterFleevtdTRCQCCQBET1936-53-87 13:12:00 Test Item Value Reference Range Interpretation Comments Hct (test code = Hct) 40.6 42.0-54.0 [facility] CenterOqpzatwFCHDOMXAUY9372-02-40 13:12:00 Test Item Value Reference Range Interpretation Comments MCH (test code = MCH) 30.4 pg 27.0-31.0 [facility] CenterBgkponlMHTGNGCYUC1085-65-30 13:12:00 Test Item Value Reference Range Interpretation Comments MCV (test code = MCV) 88.9 80.0-94.0 [facility] CenterBnceklbWUJSTBYCJP4802-66-25 13:12:00 Test Item Value Reference Range Interpretation Comments MCHC (test code = MCHC) 34.2 32.0-36.0 [facility] CenterIxxibdgEYOXGRPOJU1641-90-34 13:12:00 Test Item Value Reference Range Interpretation Comments Platelet (test code = Platelet) 196 133-450 [facility]YsxrpzsALPHJNWHLQ2386-43-31 13:12:00 Test Item Value Reference Range Interpretation Comments RDW (test code = RDW) 13.7 11.5-14.5 [facility]NhldqoxHQXCHKHQFP5384-99-61 13:12:00 Test Item Value Reference Range Interpretation Comments MPV (test code = MPV) 8.5 7.4-10.4 [facility]BeqlnhnXVZBUL5369-23-80 13:12:00 Test Item Value Reference Range Interpretation Comments HDL (test code = HDL) 75 [facility]NdejlvjCHCQHS7056-50-29 13:12:00 Test Item Value Reference Range Interpretation Comments Chol (test code = Chol) 143 [facility] HospitalXxkosasWLPHVE1818-98-56 13:12:00 Test Item Value Reference Range Interpretation Comments VLDL (test code = VLDL) 19 [facility]villeAegmnuwMITWRI1460-87-06 13:12:00 Test Item Value Reference Range Interpretation Comments Trig (test code = Trig) 94 [facility]XjpjvltFZCTNT4723-46-00 13:12:00 Test Item Value Reference Range Interpretation Comments LDL (Calculated) (test code = LDL 49 (Calculated)) [facility]HyjtgwzOXTZAG9757-61-42 13:12:00 Test Item Value Reference Range Interpretation Comments CHD Risk (test code = CHD Risk) 1.91 4.00-7.30 [facility] HUEZNQKVY3577-40-31 13:12:00 Test Item Value Reference Range Interpretation Comments Hgb A1C (test code = Hgb A1C) 6.9 [facility] AND [id number] 13:12:00 Test Item Value Reference Range Interpretation Comments UA Color (test code = UA Color) Ltyellow [facility] AND [id number] 13:12:00 Test Item Value Reference Range Interpretation Comments UA Urobilinogen (test code = UA <=1.0 mg/dL 0.1-1.0 Urobilinogen) [facility] AND [id number] 13:12:00 Test Item Value Reference Range Interpretation Comments UA Ketones (test code = UA Negative mg/dL Ketones) [facility] AND [id number] 13:12:00 Test Item Value Reference Range Interpretation Comments UA Glucose (test code = UA Negative mg/dL Glucose) [facility] AND [id number] 13:12:00 Test Item Value Reference Range Interpretation Comments UA Protein (test code = UA Protein) 100 mg/dL [facility] AND [id number] 13:12:00 Test Item Value Reference Range Interpretation Comments UA Leuk Est (test Negative (09/28/15 8:12 code = UA Leuk Est) AM) [facility] AND [id number] 13:12:00 Test Item Value Reference Range Interpretation Comments UA Nitrite (test code Negative (09/28/15 8:12 = UA Nitrite) AM) [facility] AND [id number] 13:12:00 Test Item Value Reference Range Interpretation Comments UA Bili (test code = Negative *NA*(09/28/15 UA Bili) 8:12 AM) [facility] AND [id number] 13:12:00 Test Item Value Reference Range Interpretation Comments UA Sq Epi (test code = UA Sq Epi) None Seen [facility] AND [id number] 13:12:00 Test Item Value Reference Range Interpretation Comments UA Blood (test code = Negative (09/28/15 8:12 UA Blood) AM) [facility] AND [id number] 13:12:00 Test Item Value Reference Range Interpretation Comments UA pH (test code = UA pH) 6.0 5.0-8.0 [facility] AND [id number] 13:12:00 Test Item Value Reference Range Interpretation Comments UA Spec Grav (test code = UA Spec Grav) 1.010 [facility] AND [id number] 13:12:00 Test Item Value Reference Range Interpretation Comments UA Turbidity (test code = Clear (09/28/15 8:12 UA Turbidity) AM) [facility] [id number] 13:12:00 Test Item Value Reference Range Interpretation Comments U Alb/Crea (test code = U Alb/Crea) 712.8 [facility] [id number] 13:12:00 Test Item Value Reference Range Interpretation Comments U Microalb (test code = U Microalb) 345.0 [facility] [id number] 13:12:00 Test Item Value Reference Range Interpretation Comments U Creatinine (test code = U Creatinine) 48.40 [facility]2016-07-27 13:12:00 Test Item Value Reference Range Interpretation Comments Uric Acid (test code = Uric Acid) 7.9 3.8-8.0 [facility]FhnvlbhOJRWTJNOEIWI3774-32-49 13:12:00 Test Item Value Reference Range Interpretation Comments AGAP (test code = AGAP) 11.5 10.0-20.0 [facility] HospitalUsqdiqlFYEIGVYFMBDT1128-04-95 13:12:00 Test Item Value Reference Range Interpretation Comments B/C Ratio (test code = B/C Ratio) 20 6-25 [facility] HospitalFaaywvlISQSEHQKXFRV2696-08-05 13:12:00 Test Item Value Reference Range Interpretation Comments Globulin (test code = Globulin) 3.2 2.0-4.0 [facility] HospitalBlglnwzKRRHOWXOVIUW8480-20-20 13:12:00 Test Item Value Reference Range Interpretation Comments A/G Ratio (test code = A/G Ratio) 1.4 0.7-1.6 [facility] HospitalWxxioseGZDOTMKCWLZA5809-33-72 13:12:00 Test Item Value Reference Range Interpretation Comments eGFR (test code = eGFR) 49 [facility] HospitalYfplqnfLHQOQEXQKQCV5791-72-56 13:12:00 Test Item Value Reference Range Interpretation Comments Bili Total (test code = Bili Total) 0.5 0.2-1.3 [facility] HospitalGejajnjDSFZYQZGAXGI0773-29-51 13:12:00 Test Item Value Reference Range Interpretation Comments Sodium Lvl (test code = Sodium Lvl) 140 135-145 [facility] HospitalEvptpwjWKSXZKAPOJYO8724-78-18 13:12:00 Test Item Value Reference Range Interpretation Comments Creatinine Lvl (test code = Creatinine 1.48 0.50-1.40 Lvl) [facility] HospitalJfececkPQIIZKDSAZBH8702-85-29 13:12:00 Test Item Value Reference Range Interpretation Comments BUN (test code = BUN) 29 7-22 [facility] HospitalIwlvdjcIHTMLYGMNWCC1415-77-95 13:12:00 Test Item Value Reference Range Interpretation Comments Glucose Lvl (test code = Glucose Lvl) 123 70-99 [facility] HospitalXaghvplGRALZWJDNNKP2787-62-14 13:12:00 Test Item Value Reference Range Interpretation Comments ALT (test code = ALT) 20 See_Comment [Auto mated message] The system which ge nerated this result transmit todd reference range : <=65. The reference range was not used to interpr et this result as kimberli l/abnormal. [facility] HospitalSbxuajgSDEAOMJZBGNR7231-41-73 13:12:00 Test Item Value Reference Range Interpretation Comments AST (test code = AST) 9 See_Comment [Auto mated message] The system which ge nerated this result transmit todd reference range : <=37. The reference range was not used to interpr et this result as kimberli l/abnormal. [facility] HospitalIxdcxvvOSWPSMKLNQFJ3892-09-58 13:12:00 Test Item Value Reference Range Interpretation Comments Alk Phos (test code = Alk Phos) 76 39-136 [facility] HospitalVhlozgyALVFFVVBYVSE2503-55-72 13:12:00 Test Item Value Reference Range Interpretation Comments Calcium Lvl (test code = Calcium Lvl) 9.2 8.5-10.5 [facility] HospitalIrlrzpxQHCNOMNOEKNW1769-12-55 13:12:00 Test Item Value Reference Range Interpretation Comments Albumin Lvl (test code = Albumin Lvl) 4.4 3.5-5.0 [facility] HospitalNzcjooiPTZAMLSHQOVV5705-14-73 13:12:00 Test Item Value Reference Range Interpretation Comments Potassium Lvl (test code = Potassium 4.5 3.5-5.1 Lvl) [facility] HospitalEiqanaeBWBYPUVBRFTM5275-96-38 13:12:00 Test Item Value Reference Range Interpretation Comments Total Protein (test code = Total 7.6 6.4-8.4 Protein) [facility] HospitalEenwsptZPPOIVNRRPPT1394-21-64 13:12:00 Test Item Value Reference Range Interpretation Comments CO2 (test code = CO2) 28 24-32 [facility] HospitalIqonwerVCHUMGXFRMPY5639-71-30 13:12:00 Test Item Value Reference Range Interpretation Comments Chloride Lvl (test code = Chloride Lvl) 105 95-109 [facility]AregkvlJNOEEIOBWJ2937-74-07 13:12:00 Test Item Value Reference Range Interpretation Comments Segs (test code = Segs) 60.0 45.0-75.0 [facility] CenterMueizpbNGOFOYVPLO8963-52-79 13:12:00 Test Item Value Reference Range Interpretation Comments Eosinophils (test code = 3.3 See_Comment [A utomated message] The Eosinophils) system which ge nerated this result tra nsmitted reference range : <=4.0. The reference r carolynn was not used to int erpret this result as normal/abnormal . [facility] CenterEmksxaeWIEZIZQUBH6005-10-67 13:12:00 Test Item Value Reference Range Interpretation Comments Monocytes (test code = Monocytes) 8.1 2.0-12.0 [facility] CenterTpaktqwANMVJNNWBR7210-21-05 13:12:00 Test Item Value Reference Range Interpretation Comments Lymphocytes (test code = Lymphocytes) 27.4 20.0-40.0 [facility] CenterOjzetijCZIXVIBILG5411-01-68 13:12:00 Test Item Value Reference Range Interpretation Comments Monocytes # (test code 0.5 See_Comment [Aut omated message] The = Monocytes #) system which generated this result tra nsmitted reference range : <=0.8. The reference r carolynn was not used to int erpret this result as normal/abnormal . [facility] CenterVcgbqgrBPJEOVIHDK3415-35-48 13:12:00 Test Item Value Reference Range Interpretation Comments Basophils (test code = 1.2 See_Comment [Aut omated message] The Basophils) system which ge nerated this result tra nsmitted reference range : <=1.0. The reference r carolynn was not used to int erpret this result as normal/abnormal . [facility] CenterRwhwnzqYUAWQLZJAG1961-27-77 13:12:00 Test Item Value Reference Range Interpretation Comments Lymphocytes # (test code = Lymphocytes 1.7 1.0-5.5 #) [facility] CenterRowqbjsTMCROKJFNH0529-43-30 13:12:00 Test Item Value Reference Range Interpretation Comments Segs-Bands # (test code = Segs-Bands #) 3.6 1.5-8.1 [facility] CenterJavpxksVHCJUJBFAV9189-95-98 13:12:00 Test Item Value Reference Range Interpretation Comments Eosinophils # (test code 0.2 See_Comment [A utomated message] The = Eosinophils #) system [facility] generated this result tra nsmitted reference range : <=0.5. The reference r carolynn was not used to int erpret this result as normal/abnormal . [facility] CenterThcdtkmAXASDUSVRV1637-35-52 13:12:00 Test Item Value Reference Range Interpretation Comments Basophils # (test code 0.1 See_Comment [Aut omated message] The = Basophils #) system which generated this result tra nsmitted reference range : <=0.2. The reference r carolynn was not used to int erpret this result as normal/abnormal . [facility] CenterVyhdhlvQMOEHKMNPC9154-21-51 13:12:00 Test Item Value Reference Range Interpretation Comments Hgb (test code = Hgb) 13.9 14.0-18.0 [facility] CenterBomenzzCKEOXGDSUJ5585-37-41 13:12:00 Test Item Value Reference Range Interpretation Comments RBC (test code = RBC) 4.57 4.70-6.10 [facility] CenterInrtwiuZBZCXPMOOB1310-06-15 13:12:00 Test Item Value Reference Range Interpretation Comments WBC (test code = WBC) 6.1 3.7-10.4 [facility] CenterZaqdqlhUZMGZEZUFE3121-82-68 13:12:00 Test Item Value Reference Range Interpretation Comments Hct (test code = Hct) 40.6 42.0-54.0 [facility] CenterCnxozyeESWBILYZMP8288-61-46 13:12:00 Test Item Value Reference Range Interpretation Comments MCH (test code = MCH) 30.4 pg 27.0-31.0 [facility] CenterOrmhyxpJFAKKHVWZF8968-52-49 13:12:00 Test Item Value Reference Range Interpretation Comments MCV (test code = MCV) 88.9 80.0-94.0 [facility] CenterLhtipetUXALCSONTA3392-68-47 13:12:00 Test Item Value Reference Range Interpretation Comments MCHC (test code = MCHC) 34.2 32.0-36.0 [facility] CenterZhswppgPVNIUVTVOS9935-49-78 13:12:00 Test Item Value Reference Range Interpretation Comments Platelet (test code = Platelet) 196 133-450 [facility] CenterQzxnnfhMREDJRFYTT7251-44-99 13:12:00 Test Item Value Reference Range Interpretation Comments RDW (test code = RDW) 13.7 11.5-14.5 [facility] CenterKsmpqxlXPXNUAWJUY6008-73-06 13:12:00 Test Item Value Reference Range Interpretation Comments MPV (test code = MPV) 8.5 7.4-10.4 [facility]MpestnfHFGXKV6577-05-14 13:12:00 Test Item Value Reference Range Interpretation Comments HDL (test code = HDL) 75 [facility]villeGvdkoqmILBVOC5789-84-02 13:12:00 Test Item Value Reference Range Interpretation Comments Chol (test code = Chol) 143 [facility]villeZeygngvCMYRNL6238-72-41 13:12:00 Test Item Value Reference Range Interpretation Comments VLDL (test code = VLDL) 19 [facility]onoIYWNIK5417-79-98 13:12:00 Test Item Value Reference Range Interpretation Comments Trig (test code = Trig) 94 [facility]DxnnqagPPYQPQ3653-15-27 13:12:00 Test Item Value Reference Range Interpretation Comments LDL (Calculated) (test code = LDL 49 (Calculated)) [facility]VpxzpugWINIOM1830-78-89 13:12:00 Test Item Value Reference Range Interpretation Comments CHD Risk (test code = CHD Risk) 1.91 4.00-7.30 [facility] EE[facility]AGDXIB7310[facility]37[facility]35 13:12:00 Test Item Value Reference Range Interpretation Comments Hgb A1C (test code = Hgb A1C) 6.9 [facility] AND RBUQG3772-03-04 13:12:00 Test Item Value Reference Range Interpretation Comments UA Color (test code = UA Color) Ltyellow [facility] AND [id number] 13:12:00 Test Item Value Reference Range Interpretation Comments UA Urobilinogen (test code = UA <=1.0 mg/dL 0.1-1.0 Urobilinogen) [facility] AND [id number] 13:12:00 Test Item Value Reference Range Interpretation Comments UA Ketones (test code = UA Negative mg/dL Ketones) [facility] AND [id number] 13:12:00 Test Item Value Reference Range Interpretation Comments UA Glucose (test code = UA Negative mg/dL Glucose) [facility] AND [id number] 13:12:00 Test Item Value Reference Range Interpretation Comments UA Protein (test code = UA Protein) 100 mg/dL [facility] AND IYVDI8723-03-44 13:12:00 Test Item Value Reference Range Interpretation Comments UA Leuk Est (test Negative (09/28/15 8:12 code = UA Leuk Est) AM) [facility] AND [id number] 13:12:00 Test Item Value Reference Range Interpretation Comments UA Nitrite (test code Negative (09/28/15 8:12 = UA Nitrite) AM) [facility] AND [id number] 13:12:00 Test Item Value Reference Range Interpretation Comments UA Bili (test code = Negative *NA*(09/28/15 UA Bili) 8:12 AM) [facility] [id number] 13:12:00 Test Item Value Reference Range Interpretation Comments UA Sq Epi (test code = UA Sq Epi) None [facility]en [facility] [id number] 13:12:00 Test Item Value Reference Range Interpretation Comments UA Blood (test code = Negative (09/28/15 8:12 UA Blood) AM) [facility] [id number] 13:12:00 Test Item Value Reference Range Interpretation Comments UA pH (test code = UA pH) 6.0 5.0-8.0 [facility] [id number] 13:12:00 Test Item Value Reference Range Interpretation Comments UA Spec Grav (test code = UA Spec Grav) 1.010 [facility] [id number] 13:12:00 Test Item Value Reference Range Interpretation Comments UA Turbidity (test code = Clear (09/28/15 8:12 UA Turbidity) AM) [facility] [id number] 13:12:00 Test Item Value Reference Range Interpretation Comments U Alb/Crea (test code = U Alb/Crea) 712.8 [facility] [id number] 13:12:00 Test Item Value Reference Range Interpretation Comments U Microalb (test code = U Microalb) 345.0 [facility] [id number] 13:12:00 Test Item Value Reference Range Interpretation Comments U Creatinine (test code = U Creatinine) 48.40 [facility] VHARX3748-71-20 13:12:00 Test Item Value Reference Range Interpretation Comments Uric Acid (test code = Uric Acid) 7.9 3.8-8.0 [facility] KeoztmbMTBDYUZUECTP0465-09-97 13:12:00 Test Item Value Reference Range Interpretation Comments AGAP (test code = AGAP) 11.5 10.0-20.0 [facility] BcqlmhdGKFQLMIIDALR5262-83-04 13:12:00 Test Item Value Reference Range Interpretation Comments B/C Ratio (test code = B/C Ratio) 20 6-25 [facility] SsoikegKMMXHNBZCBWC1587-42-16 13:12:00 Test Item Value Reference Range Interpretation Comments Globulin (test code = Globulin) 3.2 2.0-4.0 [facility] HospitalYgaskqqICBNOGQWWTKJ6969-26-18 13:12:00 Test Item Value Reference Range Interpretation Comments A/G Ratio (test code = A/G Ratio) 1.4 0.7-1.6 [facility] HospitalHdtxymwQRQXHIKDODPJ7793-17-50 13:12:00 Test Item Value Reference Range Interpretation Comments eGFR (test code = eGFR) 49 [facility] HospitalBeyufiuUDTLBDAYYYBX0685-74-85 13:12:00 Test Item Value Reference Range Interpretation Comments Bili Total (test code = Bili Total) 0.5 0.2-1.3 [facility] HospitalWiscdarXDUCDANUYAJX0437-86-92 13:12:00 Test Item Value Reference Range Interpretation Comments Sodium Lvl (test code = Sodium Lvl) 140 135-145 [facility] HospitalPasxmjxMWKNQNLEKCLR5221-70-29 13:12:00 Test Item Value Reference Range Interpretation Comments Creatinine Lvl (test code = Creatinine 1.48 0.50-1.40 Lvl) [facility] HospitalCjmozhuHRWFNQDEHMTP3287-12-89 13:12:00 Test Item Value Reference Range Interpretation Comments BUN (test code = BUN) 29 7-22 [facility] HospitalExbjgpkIFHPZCGITBDO5027-73-37 13:12:00 Test Item Value Reference Range Interpretation Comments Glucose Lvl (test code = Glucose Lvl) 123 70-99 [facility] HospitalHuthijqNTJDJRKXICSY8706-08-02 13:12:00 Test Item Value Reference Range Interpretation Comments ALT (test code = ALT) 20 See_Comment [Auto mated message] The system which ge nerated this result transmit todd reference range : <=65. The reference range was not used to interpr et this result as kimberli l/abnormal. [facility] HospitalElvvaclHHMRQGALIGWX8047-63-69 13:12:00 Test Item Value Reference Range Interpretation Comments AST (test code = AST) 9 See_Comment [Auto mated message] The system which ge nerated this result transmit todd reference range : <=37. The reference range was not used to interpr et this result as kimberli l/abnormal. [facility] HospitalXeuaecwKTXVOMLUFJIL7530-10-52 13:12:00 Test Item Value Reference Range Interpretation Comments Alk Phos (test code = Alk Phos) 76 39-136 [facility] HospitalFfobgcoFHLCTOXAAHNU9078-23-01 13:12:00 Test Item Value Reference Range Interpretation Comments Calcium Lvl (test code = Calcium Lvl) 9.2 8.5-10.5 [facility] HospitalRyimkatVUFLZFLENIBL1595-21-28 13:12:00 Test Item Value Reference Range Interpretation Comments Albumin Lvl (test code = Albumin Lvl) 4.4 3.5-5.0 [facility] HospitalAqngxokBZREFDWNKSHV1376-06-01 13:12:00 Test Item Value Reference Range Interpretation Comments Potassium Lvl (test code = Potassium 4.5 3.5-5.1 Lvl) [facility] HospitalWylvrwiIRLVWNCIQDBS8293-49-34 13:12:00 Test Item Value Reference Range Interpretation Comments Total Protein (test code = Total 7.6 6.4-8.4 Protein) [facility] HospitalBkuogswYGIVIXUYJBPM9554-96-27 13:12:00 Test Item Value Reference Range Interpretation Comments CO2 (test code = CO2) 28 24-32 [facility] HospitalFvwshyrIOYNYCGZUWZT6487-74-46 13:12:00 Test Item Value Reference Range Interpretation Comments Chloride Lvl (test code = Chloride Lvl) 105 95-109 [facility] CenterFzyifzpLFKVHYBJMA3176-22-80 13:12:00 Test Item Value Reference Range Interpretation Comments Segs (test code = Segs) 60.0 45.0-75.0 [facility] CenterPuwhiiiEPTPOGVZQZ1227-21-43 13:12:00 Test Item Value Reference Range Interpretation Comments Eosinophils (test code = 3.3 See_Comment [A utomated message] The Eosinophils) system which ge nerated this result tra nsmitted reference range : <=4.0. The reference r carolynn was not used to int erpret this result as normal/abnormal . [facility] CenterVkmgtumYLLNXXPDZH7219-58-13 13:12:00 Test Item Value Reference Range Interpretation Comments Monocytes (test code = Monocytes) 8.1 2.0-12.0 [facility] CenterEtnfkfiJOMJAIGDLA8291-59-73 13:12:00 Test Item Value Reference Range Interpretation Comments Lymphocytes (test code = Lymphocytes) 27.4 20.0-40.0 [facility] CenterNrozzkeUATIQDNOXR1501-56-07 13:12:00 Test Item Value Reference Range Interpretation Comments Monocytes # (test code 0.5 See_Comment [Aut omated message] The = Monocytes #) system which generated this result tra nsmitted reference range : <=0.8. The reference r carolynn was not used to int erpret this result as normal/abnormal . [facility] CenterEuhwammKRYPRTKSFG6426-46-19 13:12:00 Test Item Value Reference Range Interpretation Comments Basophils (test code = 1.2 See_Comment [Aut omated message] The Basophils) system which ge nerated this result tra nsmitted reference range : <=1.0. The reference r carolynn was not used to int erpret this result as normal/abnormal . [facility] CenterAjholxzUBUIHZDUZM3933-43-38 13:12:00 Test Item Value Reference Range Interpretation Comments Lymphocytes # (test code = Lymphocytes 1.7 1.0-5.5 #) [facility] CenterYqgbtslLSSEWJYUDC0032-31-19 13:12:00 Test Item Value Reference Range Interpretation Comments Segs-Bands # (test code = Segs-Bands #) 3.6 1.5-8.1 [facility] CenterBwxconhDFWOIQNPAX6088-36-10 13:12:00 Test Item Value Reference Range Interpretation Comments Eosinophils # (test code 0.2 See_Comment [A utomated message] The = Eosinophils #) system wh h generated this result tra nsmitted reference range : <=0.5. The reference r carolynn was not used to int erpret this result as normal/abnormal . [facility] CenterUoojdrsACMAQQKFJX4719-64-41 13:12:00 Test Item Value Reference Range Interpretation Comments Basophils # (test code 0.1 See_Comment [Aut omated message] The = Basophils #) system which generated this result tra nsmitted reference range : <=0.2. The reference r carolynn was not used to int erpret this result as normal/abnormal . [facility] CenterFqsvserRICKJYQUSD6855-92-62 13:12:00 Test Item Value Reference Range Interpretation Comments Hgb (test code = Hgb) 13.9 14.0-18.0 [facility] CenterVnukwohHLYNCYRWWS7452-20-27 13:12:00 Test Item Value Reference Range Interpretation Comments RBC (test code = RBC) 4.57 4.70-6.10 [facility] CenterHhrocgmLCDKXTPLFB8026-42-46 13:12:00 Test Item Value Reference Range Interpretation Comments WBC (test code = WBC) 6.1 3.7-10.4 [facility] CenterMnzphhkEZAWYHXQJI5695-77-64 13:12:00 Test Item Value Reference Range Interpretation Comments Hct (test code = Hct) 40.6 42.0-54.0 [facility]EfyjzyoPYKDHLKAOF3790-76-73 13:12:00 Test Item Value Reference Range Interpretation Comments MCH (test code = MCH) 30.4 pg 27.0-31.0 [facility]KkrmqtvHANBTVJRPK0078-33-62 13:12:00 Test Item Value Reference Range Interpretation Comments MCV (test code = MCV) 88.9 80.0-94.0 [facility]YdjprutIMELDWEYGG2787-61-20 13:12:00 Test Item Value Reference Range Interpretation Comments MCHC (test code = MCHC) 34.2 32.0-36.0 [facility] HospitalHmwxyzyTFQMKNIXXU9986-83-23 13:12:00 Test Item Value Reference Range Interpretation Comments Platelet (test code = Platelet) 196 133-450 [facility]ArzcpoyXBEKPTSANK1984-64-61 13:12:00 Test Item Value Reference Range Interpretation Comments RDW (test code = RDW) 13.7 11.5-14.5 [facility] HospitalNsipbeaJAJTEWAHTY6540-37-79 13:12:00 Test Item Value Reference Range Interpretation Comments MPV (test code = MPV) 8.5 7.4-10.4 [facility] HospitalLpqrkxgWCNJZC1089-18-02 13:12:00 Test Item Value Reference Range Interpretation Comments HDL (test code = HDL) 75 [facility] HospitalMwvhybfHQWMXD7115-74-31 13:12:00 Test Item Value Reference Range Interpretation Comments Chol (test code = Chol) 143 [facility] HospitalRbcxadgCULUNS7236-87-47 13:12:00 Test Item Value Reference Range Interpretation Comments VLDL (test code = VLDL) 19 [facility] HospitalXehuzrzBWJTAR9940-45-65 13:12:00 Test Item Value Reference Range Interpretation Comments Trig (test code = Trig) 94 [facility] HospitalChwvgogJBBPMR0389-27-38 13:12:00 Test Item Value Reference Range Interpretation Comments LDL (Calculated) (test code = LDL 49 (Calculated)) [facility] HospitalSbimctoUWOXKB1171-28-99 13:12:00 Test Item Value Reference Range Interpretation Comments CHD Risk (test code = CHD Risk) 1.91 4.00-7.30 [facility]SPECIAL LRIBXOIXN1835-81-10 13:12:00 Test Item Value Reference Range Interpretation Comments Hgb A1C (test code = Hgb A1C) 6.9 [facility] AND [id number] 13:12:00 Test Item Value Reference Range Interpretation Comments UA Color (test code = UA Color) Ltyellow [facility] AND [id number] 13:12:00 Test Item Value Reference Range Interpretation Comments UA Urobilinogen (test code = UA <=1.0 mg/dL 0.1-1.0 Urobilinogen) [facility] AND [id number] 13:12:00 Test Item Value Reference Range Interpretation Comments UA Ketones (test code = UA Negative mg/dL Ketones) [facility] AND [id number] 13:12:00 Test Item Value Reference Range Interpretation Comments UA Glucose (test code = UA Negative mg/dL Glucose) [facility] AND [id number] 13:12:00 Test Item Value Reference Range Interpretation Comments UA Protein (test code = UA Protein) 100 mg/dL [facility] AND [id number] 13:12:00 Test Item Value Reference Range Interpretation Comments UA Leuk Est (test Negative (09/28/15 8:12 code = UA Leuk Est) AM) [facility] AND [id number] 13:12:00 Test Item Value Reference Range Interpretation Comments UA Nitrite (test code Negative (09/28/15 8:12 = UA Nitrite) AM) [facility] AND [id number] 13:12:00 Test Item Value Reference Range Interpretation Comments UA Bili (test code = Negative *NA*(09/28/15 UA Bili) 8:12 AM) [facility] AND [id number] 13:12:00 Test Item Value Reference Range Interpretation Comments UA Sq Epi (test code = UA Sq Epi) None Seen [facility] AND [id number] 13:12:00 Test Item Value Reference Range Interpretation Comments UA Blood (test code = Negative (09/28/15 8:12 UA Blood) AM) [facility] AND [id number] 13:12:00 Test Item Value Reference Range Interpretation Comments UA pH (test code = UA pH) 6.0 5.0-8.0 [facility] AND [id number] 13:12:00 Test Item Value Reference Range Interpretation Comments UA Spec Grav (test code = UA Spec Grav) 1.010 [facility] AND [id number] 13:12:00 Test Item Value Reference Range Interpretation Comments UA Turbidity (test code = Clear (09/28/15 8:12 UA Turbidity) AM) [facility] [id number] 13:12:00 Test Item Value Reference Range Interpretation Comments U Alb/Crea (test code = U Alb/Crea) 712.8 [facility] [id number] 13:12:00 Test Item Value Reference Range Interpretation Comments U Microalb (test code = U Microalb) 345.0 [facility] [id number] 13:12:00 Test Item Value Reference Range Interpretation Comments U Creatinine (test code = U Creatinine) 48.40 [facility]CHE[facility] [id number] 13:12:00 Test Item Value Reference Range Interpretation Comments Uric Acid (test code = Uric Acid) 7.9 3.8-8.0 [facility]TgqhokvBZWAMWJAHBOU1978-68-81 13:12:00 Test Item Value Reference Range Interpretation Comments AGAP (test code = AGAP) 11.5 10.0-20.0 [facility] HospitalPdqcyozOYGEGYUXCJWF3980-42-41 13:12:00 Test Item Value Reference Range Interpretation Comments B/C Ratio (test code = B/C Ratio) 20 6-25 [facility] HospitalAxvipnsLXZRMCBBRDFW0948-57-53 13:12:00 Test Item Value Reference Range Interpretation Comments Globulin (test code = Globulin) 3.2 2.0-4.0 [facility] HospitalHxihuibRWPSHQEGSMCG6082-95-02 13:12:00 Test Item Value Reference Range Interpretation Comments A/G Ratio (test code = A/G Ratio) 1.4 0.7-1.6 [facility] HospitalWlhpulbFYMYJZIYGNRV9387-03-62 13:12:00 Test Item Value Reference Range Interpretation Comments eGFR (test code = eGFR) 49 [facility] HospitalNugtolqVHKBTQVIULWN2055-01-26 13:12:00 Test Item Value Reference Range Interpretation Comments Bili Total (test code = Bili Total) 0.5 0.2-1.3 [facility] HospitalJwgvdkiXFSRARCTOJLZ5683-74-94 13:12:00 Test Item Value Reference Range Interpretation Comments Sodium Lvl (test code = Sodium Lvl) 140 135-145 [facility]NawalbuQWQFJYBAPDSV8245-36-60 13:12:00 Test Item Value Reference Range Interpretation Comments Creatinine Lvl (test code = Creatinine 1.48 0.50-1.40 Lvl) [facility] HospitalJlpsmahLIBATVZWPKXE6826-78-67 13:12:00 Test Item Value Reference Range Interpretation Comments BUN (test code = BUN) 29 7-22 [facility] HospitalElesxpoERKMBYXCNGJV4202-03-66 13:12:00 Test Item Value Reference Range Interpretation Comments Glucose Lvl (test code = Glucose Lvl) 123 70-99 [facility] HospitalCqzsuqqOEXSFQGKDNJH5635-51-39 13:12:00 Test Item Value Reference Range Interpretation Comments ALT (test code = ALT) 20 See_Comment [Auto mated message] The system which ge nerated this result transmit todd reference range : <=65. The reference range was not used to interpr et this result as kimberli l/abnormal. [facility] HospitalEnfzoqyDPMUMDEKYWZK7125-38-51 13:12:00 Test Item Value Reference Range Interpretation Comments AST (test code = AST) 9 See_Comment [Auto mated message] The system which ge nerated this result transmit todd reference range : <=37. The reference range was not used to interpr et this result as kimberli l/abnormal. [facility] HospitalReqjgipEPKGURNEOOEE0101-65-03 13:12:00 Test Item Value Reference Range Interpretation Comments Alk Phos (test code = Alk Phos) 76 39-136 [facility] HospitalAwfygiiHOFGYZHLKUQO5937-28-40 13:12:00 Test Item Value Reference Range Interpretation Comments Calcium Lvl (test code = Calcium Lvl) 9.2 8.5-10.5 [facility] HospitalLfespykFVWWJLLQHDJN5292-10-52 13:12:00 Test Item Value Reference Range Interpretation Comments Albumin Lvl (test code = Albumin Lvl) 4.4 3.5-5.0 [facility] HospitalZxlhstaNVHYVODHTKKA0401-08-13 13:12:00 Test Item Value Reference Range Interpretation Comments Potassium Lvl (test code = Potassium 4.5 3.5-5.1 Lvl) [facility] HospitalFcxtxreNNOWPZOJHRKE6596-74-78 13:12:00 Test Item Value Reference Range Interpretation Comments Total Protein (test code = Total 7.6 6.4-8.4 Protein) [facility] HospitalEihbovnBVUTVQXBFSFA9818-55-16 13:12:00 Test Item Value Reference Range Interpretation Comments CO2 (test code = CO2) 28 24-32 [facility]KuamfpxRQTRDYQGRGYN9068-90-35 13:12:00 Test Item Value Reference Range Interpretation Comments Chloride Lvl (test code = Chloride Lvl) 105 95-109 [facility]VqavtmtPCDYAQAOWM7126-55-23 13:12:00 Test Item Value Reference Range Interpretation Comments Segs (test code = Segs) 60.0 45.0-75.0 [facility] CenterBefouzkAQVTWEAUOT0792-23-53 13:12:00 Test Item Value Reference Range Interpretation Comments Eosinophils (test code = 3.3 See_Comment [A utomated message] The Eosinophils) system which ge nerated this result tra nsmitted reference range : <=4.0. The reference r carolynn was not used to int erpret this result as normal/abnormal . [facility] CenterJikgonhSPGUGJNEMP9975-84-33 13:12:00 Test Item Value Reference Range Interpretation Comments Monocytes (test code = Monocytes) 8.1 2.0-12.0 [facility] CenterEwrrssjHCLHLJJGEV5538-86-26 13:12:00 Test Item Value Reference Range Interpretation Comments Lymphocytes (test code = Lymphocytes) 27.4 20.0-40.0 [facility] CenterVqkdzqhGUWFJJPTPS7141-53-26 13:12:00 Test Item Value Reference Range Interpretation Comments Monocytes # (test code 0.5 See_Comment [Aut omated message] The = Monocytes #) system which generated this result tra nsmitted reference range : <=0.8. The reference r carolynn was not used to int erpret this result as normal/abnormal . [facility] CenterElcwumsDRKREGQXPD3426-52-85 13:12:00 Test Item Value Reference Range Interpretation Comments Basophils (test code = 1.2 See_Comment [Aut omated message] The Basophils) system which ge nerated this result tra nsmitted reference range : <=1.0. The reference r carolynn was not used to int erpret this result as normal/abnormal . [facility] CenterQjmkjzcDKYFHQFUBB5935-20-39 13:12:00 Test Item Value Reference Range Interpretation Comments Lymphocytes # (test code = Lymphocytes 1.7 1.0-5.5 #) [facility] CenterAultcoiJKWWZARLVF0399-04-41 13:12:00 Test Item Value Reference Range Interpretation Comments Segs-Bands # (test code = Segs-Bands #) 3.6 1.5-8.1 [facility] CenterYfmyvovTULMFTXKVL5257-61-91 13:12:00 Test Item Value Reference Range Interpretation Comments Eosinophils # (test code 0.2 See_Comment [A utomated message] The = Eosinophils #) system whic h generated this result tra nsmitted reference range : <=0.5. The reference r carolynn was not used to int erpret this result as normal/abnormal . [facility] CenterRsikltlESUOEUBARZ8552-19-06 13:12:00 Test Item Value Reference Range Interpretation Comments Basophils # (test code 0.1 See_Comment [Aut omated message] The = Basophils #) system which generated this result tra nsmitted reference range : <=0.2. The reference r carolynn was not used to int erpret this result as normal/abnormal . [facility] CenterApeuhyhENXHCQLPOG2764-25-36 13:12:00 Test Item Value Reference Range Interpretation Comments Hgb (test code = Hgb) 13.9 14.0-18.0 [facility] CenterJtvkecrCTGZZCHYJH3354-41-64 13:12:00 Test Item Value Reference Range Interpretation Comments RBC (test code = RBC) 4.57 4.70-6.10 [facility] CenterJvjqoewYGPTOOLELO0923-65-35 13:12:00 Test Item Value Reference Range Interpretation Comments WBC (test code = WBC) 6.1 3.7-10.4 [facility] CenterRfqviwaOOVOBNTZBR6074-36-35 13:12:00 Test Item Value Reference Range Interpretation Comments Hct (test code = Hct) 40.6 42.0-54.0 [facility] CenterQtgdhelLBJKOXIYRD1312-85-54 13:12:00 Test Item Value Reference Range Interpretation Comments MCH (test code = MCH) 30.4 pg 27.0-31.0 [facility] CenterRffihieLDVDUFRUPH6324-80-49 13:12:00 Test Item Value Reference Range Interpretation Comments MCV (test code = MCV) 88.9 80.0-94.0 [facility] CenterGochemhUZMPFANFVN5572-69-19 13:12:00 Test Item Value Reference Range Interpretation Comments MCHC (test code = MCHC) 34.2 32.0-36.0 [facility] CenterOobpfxzOUDINAREAV9222-60-46 13:12:00 Test Item Value Reference Range Interpretation Comments Platelet (test code = Platelet) 196 133-450 [facility] CenterBszndoaCDKZBZPBOR5063-76-44 13:12:00 Test Item Value Reference Range Interpretation Comments RDW (test code = RDW) 13.7 11.5-14.5 [facility]WzambggUZCHZNSTSC1208-33-78 13:12:00 Test Item Value Reference Range Interpretation Comments MPV (test code = MPV) 8.5 7.4-10.4 [facility]PintitfBHUIXM9148-07-77 13:12:00 Test Item Value Reference Range Interpretation Comments HDL (test code = HDL) 75 [facility] HospitalFrmnwflGXLQMS7956-69-81 13:12:00 Test Item Value Reference Range Interpretation Comments Chol (test code = Chol) 143 [facility]GilfpzfFOVBZD1317-40-41 13:12:00 Test Item Value Reference Range Interpretation Comments VLDL (test code = VLDL) 19 [facility]XokmaldRLFIIJ0587-46-40 13:12:00 Test Item Value Reference Range Interpretation Comments Trig (test code = Trig) 94 [facility]DivadpxNFLQLD9574-60-78 13:12:00 Test Item Value Reference Range Interpretation Comments LDL (Calculated) (test code = LDL 49 (Calculated)) [facility] HospitalVlhqokqYPHZEL8712-90-10 13:12:00 Test Item Value Reference Range Interpretation Comments CHD Risk (test code = CHD Risk) 1.91 4.00-7.30 [facility] SVHKPSXBP1890-78-36 13:12:00 Test Item Value Reference Range Interpretation Comments Hgb A1C (test code = Hgb A1C) 6.9 [facility] AND [id number] 13:12:00 Test Item Value Reference Range Interpretation Comments UA Color (test code = UA Color) Ltyellow [facility] AND [id number] 13:12:00 Test Item Value Reference Range Interpretation Comments UA Urobilinogen (test code = UA <=1.0 mg/dL 0.1-1.0 Urobilinogen) [facility] AND [id number] 13:12:00 Test Item Value Reference Range Interpretation Comments UA Ketones (test code = UA Negative mg/dL Ketones) [facility] AND [id number] 13:12:00 Test Item Value Reference Range Interpretation Comments UA Glucose (test code = UA Negative mg/dL Glucose) [facility] AND [id number] 13:12:00 Test Item Value Reference Range Interpretation Comments UA Protein (test code = UA Protein) 100 [facility] [id number] 13:12:00 Test Item Value Reference Range Interpretation Comments UA Leuk Est (test Negative (09/28/15 8:12 code = UA Leuk Est) AM) [facility] [id number] 13:12:00 Test Item Value Reference Range Interpretation Comments UA Nitrite (test code Negative (09/28/15 8:12 = UA Nitrite) AM) [facility] [id number] 13:12:00 Test Item Value Reference Range Interpretation Comments UA Bili (test code = Negative *NA*(09/28/15 UA Bili) 8:12 AM) [facility] [id number] 13:12:00 Test Item Value Reference Range Interpretation Comments UA Sq Epi (test code = UA Sq Epi) None [facility]en [facility] [id number] 13:12:00 Test Item Value Reference Range Interpretation Comments UA Blood (test code = Negative (09/28/15 8:12 [facility]A Blood) AM) [facility] [id number] 13:12:00 Test Item Value Reference Range Interpretation Comments UA pH (test code = UA pH) 6.0 5.0-8.0 [facility] [id number] 13:12:00 Test Item Value Reference Range Interpretation Comments UA Spec Grav (test code = UA Spec Grav) 1.010 [facility] [id number] 13:12:00 Test Item Value Reference Range Interpretation Comments UA Turbidity (test code = Clear (09/28/15 8:12 [facility] Turbidity) AM) [facility] [id number] 13:12:00 Test Item Value Reference Range Interpretation Comments U Alb/Crea (test code = U Alb/Crea) 712.8 [facility] QCPK8814-18-86 13:12:00 Test Item Value Reference Range Interpretation Comments U Microalb (test code = U Microalb) 345.0 [facility] [id number] 13:12:00 Test Item Value Reference Range Interpretation Comments U Creatinine (test code = U Creatinine) 48.40 [facility] CenterBSEHY8715-89-89 13:12:00 Test Item Value Reference Range Interpretation Comments Uric Acid (test code = Uric Acid) 7.9 3.8-8.0 [facility] HospitalCdvussnXWSHWWXSQLLV1415-44-13 13:12:00 Test Item Value Reference Range Interpretation Comments AGAP (test code = AGAP) 11.5 10.0-20.0 [facility] HospitalCewrdnyGTFJZUUEBSTO0858-81-22 13:12:00 Test Item Value Reference Range Interpretation Comments B/C Ratio (test code = B/C Ratio) 20 6-25 [facility] HospitalJkegdgsBJWUQIKHCWPJ5366-23-95 13:12:00 Test Item Value Reference Range Interpretation Comments Globulin (test code = Globulin) 3.2 2.0-4.0 [facility] HospitalUebwgrcXHCZUTWKLBVJ4457-42-13 13:12:00 Test Item Value Reference Range Interpretation Comments A/G Ratio (test code = A/G Ratio) 1.4 0.7-1.6 [facility] HospitalGbgcdyeDDRJBMYOSKYD1624-15-85 13:12:00 Test Item Value Reference Range Interpretation Comments eGFR (test code = eGFR) 49 [facility] HospitalTggmxxnPZJMJOOVJHMB0813-33-39 13:12:00 Test Item Value Reference Range Interpretation Comments Bili Total (test code = Bili Total) 0.5 0.2-1.3 [facility] HospitalUhdawffRBXHUWYYGERQ4056-69-05 13:12:00 Test Item Value Reference Range Interpretation Comments Sodium Lvl (test code = Sodium Lvl) 140 135-145 [facility] HospitalGswlstoOQYHRLLUAJDC0277-13-23 13:12:00 Test Item Value Reference Range Interpretation Comments Creatinine Lvl (test code = Creatinine 1.48 0.50-1.40 Lvl) [facility] HospitalQzlunnbXXAEUXWLVXPU4426-64-70 13:12:00 Test Item Value Reference Range Interpretation Comments BUN (test code = BUN) 29 7-22 [facility] HospitalPhhfczuUOQCUHDACSOJ2104-59-84 13:12:00 Test Item Value Reference Range Interpretation Comments Glucose Lvl (test code = Glucose Lvl) 123 70-99 [facility] HospitalTnucufnOACZESPQYXIB9686-33-45 13:12:00 Test Item Value Reference Range Interpretation Comments ALT (test code = ALT) 20 <=65 [facility] HospitalDsbtsrrSFDZAKZUTYKJ7837-72-61 13:12:00 Test Item Value Reference Range Interpretation Comments AST (test code = AST) 9 <=37 [facility] HospitalSxhpuvuKTVDGLIQAYYF8425-07-08 13:12:00 Test Item Value Reference Range Interpretation Comments Alk Phos (test code = Alk Phos) 76 39-136 [facility] HospitalMnvuzpfKSNMZOKSEDZH9908-41-66 13:12:00 Test Item Value Reference Range Interpretation Comments Calcium Lvl (test code = Calcium Lvl) 9.2 8.5-10.5 [facility] HospitalZczlmakFVOGIEDAMZRD3267-21-45 13:12:00 Test Item Value Reference Range Interpretation Comments Albumin Lvl (test code = Albumin Lvl) 4.4 3.5-5.0 [facility] HospitalIqmnyoqKPXRCHAZPRNL3048-61-46 13:12:00 Test Item Value Reference Range Interpretation Comments Potassium Lvl (test code = Potassium 4.5 3.5-5.1 Lvl) [facility] HospitalOxvdachVAYJVBZOOYTM0873-41-42 13:12:00 Test Item Value Reference Range Interpretation Comments Total Protein (test code = Total 7.6 6.4-8.4 Protein) [facility] HospitalNwkthkmGQMVUDSPGAKJ7194-09-30 13:12:00 Test Item Value Reference Range Interpretation Comments CO2 (test code = CO2) 28 24-32 [facility] HospitalQwfdhwbEYXIJUDPZQEI5743-45-98 13:12:00 Test Item Value Reference Range Interpretation Comments Chloride Lvl (test code = Chloride Lvl) 105 95-109 [facility] CenterBjnxreoPVTEOPPFKI5579-68-31 13:12:00 Test Item Value Reference Range Interpretation Comments Segs (test code = Segs) 60.0 45.0-75.0 [facility] CenterJwtpxneMUHNVUPEYS7004-25-65 13:12:00 Test Item Value Reference Range Interpretation Comments Eosinophils (test code = Eosinophils) 3.3 <=4.0 [facility] CenterLszkysuQPWFSPLVQA9946-24-32 13:12:00 Test Item Value Reference Range Interpretation Comments Monocytes (test code = Monocytes) 8.1 2.0-12.0 [facility] CenterVblwzqkTIJFCHZNPC1216-62-09 13:12:00 Test Item Value Reference Range Interpretation Comments Lymphocytes (test code = Lymphocytes) 27.4 20.0-40.0 [facility] CenterNwdykedITCHIUBYTK4870-58-88 13:12:00 Test Item Value Reference Range Interpretation Comments Monocytes # (test code = Monocytes #) 0.5 <=0.8 [facility] CenterUvwitkqKGDUVYUXYQ9449-39-49 13:12:00 Test Item Value Reference Range Interpretation Comments Basophils (test code = Basophils) 1.2 <=1.0 [facility] CenterCiuzzxqHZUUZWVHJC7838-50-18 13:12:00 Test Item Value Reference Range Interpretation Comments Lymphocytes # (test code = Lymphocytes 1.7 1.0-5.5 #) [facility] CenterJeyfillOJQSWUIZSJ1494-75-40 13:12:00 Test Item Value Reference Range Interpretation Comments Segs-Bands # (test code = Segs-Bands #) 3.6 1.5-8.1 [facility] CenterHfptjolFJSXNVHVYJ8526-64-07 13:12:00 Test Item Value Reference Range Interpretation Comments Eosinophils # (test code = Eosinophils 0.2 <=0.5 #) [facility] CenterSjigwokYXHWRUTVOX1594-01-26 13:12:00 Test Item Value Reference Range Interpretation Comments Basophils # (test code = Basophils #) 0.1 <=0.2 [facility] CenterBoihchxUTEAAZCFEE5969-04-98 13:12:00 Test Item Value Reference Range Interpretation Comments Hgb (test code = Hgb) 13.9 14.0-18.0 [facility] CenterQrleedlVULHWFJNJZ8217-23-81 13:12:00 Test Item Value Reference Range Interpretation Comments RBC (test code = RBC) 4.57 4.70-6.10 [facility] CenterBcewbotQRAOUIEOZD6859-21-78 13:12:00 Test Item Value Reference Range Interpretation Comments WBC (test code = WBC) 6.1 3.7-10.4 [facility] CenterEgcqwypLNAWOWTEHY0808-44-91 13:12:00 Test Item Value Reference Range Interpretation Comments Hct (test code = Hct) 40.6 42.0-54.0 [facility] CenterTnlsqcdMAIYAWWPDM4366-88-14 13:12:00 Test Item Value Reference Range Interpretation Comments MCH (test code = MCH) 30.4 pg 27.0-31.0 [facility] CenterWefokjgSOLESDUIZH0858-73-19 13:12:00 Test Item Value Reference Range Interpretation Comments MCV (test code = MCV) 88.9 80.0-94.0 [facility] CenterCjvvosnINNARYRXAA4808-96-29 13:12:00 Test Item Value Reference Range Interpretation Comments MCHC (test code = MCHC) 34.2 32.0-36.0 [facility] CenterSookpwgRIMJMNIZUV8421-10-28 13:12:00 Test Item Value Reference Range Interpretation Comments Platelet (test code = Platelet) 196 133-450 [facility]VupupzsIAEESTTPTU3529-42-40 13:12:00 Test Item Value Reference Range Interpretation Comments RDW (test code = RDW) 13.7 11.5-14.5 [facility] HospitalCsgzykmFOYHQBAADM8706-76-81 13:12:00 Test Item Value Reference Range Interpretation Comments MPV (test code = MPV) 8.5 7.4-10.4 [facility]JukmpxdCDBDZQ6950-12-50 13:12:00 Test Item Value Reference Range Interpretation Comments HDL (test code = HDL) 75 [facility] HospitalOlesftyJACRHN4490-76-21 13:12:00 Test Item Value Reference Range Interpretation Comments Chol (test code = Chol) 143 [facility]FoaeluqOOVSMI9932-15-05 13:12:00 Test Item Value Reference Range Interpretation Comments VLDL (test code = VLDL) 19 [facility] HospitalTmxzuewNZNKKH2908-99-20 13:12:00 Test Item Value Reference Range Interpretation Comments Trig (test code = Trig) 94 [facility] HospitalXmwcnyxESNORQ0625-68-69 13:12:00 Test Item Value Reference Range Interpretation Comments LDL (Calculated) (test code = LDL 49 (Calculated)) [facility] HospitalExjupoyTGISAB7797-02-55 13:12:00 Test Item Value Reference Range Interpretation Comments CHD Risk (test code = CHD Risk) 1.91 4.00-7.30 [facility] ZUOWJXWQB4761-38-05 13:12:00 Test Item Value Reference Range Interpretation Comments Hgb A1C (test code = Hgb A1C) 6.9 [facility] AND [id number] 13:12:00 Test Item Value Reference Range Interpretation Comments UA Color (test code = UA Color) Ltyellow [facility] AND [id number] 13:12:00 Test Item Value Reference Range Interpretation Comments UA Urobilinogen (test code = UA <=1.0 mg/dL 0.1-1.0 Urobilinogen) [facility] AND [id number] 13:12:00 Test Item Value Reference Range Interpretation Comments UA Ketones (test code = UA Negative mg/dL Ketones) [facility] AND [id number] 13:12:00 Test Item Value Reference Range Interpretation Comments UA Glucose (test code = UA Negative mg/dL Glucose) [facility] AND [id number] 13:12:00 Test Item Value Reference Range Interpretation Comments UA Protein (test code = UA Protein) 100 mg/dL [facility] AND [id number] 13:12:00 Test Item Value Reference Range Interpretation Comments UA Leuk Est (test Negative (09/28/15 8:12 code = UA Leuk Est) AM) [facility] AND [id number] 13:12:00 Test Item Value Reference Range Interpretation Comments UA Nitrite (test code Negative (09/28/15 8:12 = UA Nitrite) AM) [facility] AND [id number] 13:12:00 Test Item Value Reference Range Interpretation Comments UA Bili (test code = Negative *NA*(09/28/15 UA Bili) 8:12 AM) [facility] AND [id number] 13:12:00 Test Item Value Reference Range Interpretation Comments UA Sq Epi (test code = UA Sq Epi) None Seen [facility] AND [id number] 13:12:00 Test Item Value Reference Range Interpretation Comments UA Blood (test code = Negative (09/28/15 8:12 UA Blood) AM) [facility] AND [id number] 13:12:00 Test Item Value Reference Range Interpretation Comments UA pH (test code = UA pH) 6.0 5.0-8.0 [facility] AND [id number] 13:12:00 Test Item Value Reference Range Interpretation Comments UA Spec Grav (test code = UA Spec Grav) 1.010 [facility] AND SPKSQ5713-15-03 13:12:00 Test Item Value Reference Range Interpretation Comments UA Turbidity (test code = Clear (09/28/15 8:12 UA Turbidity) AM) [facility]2016-07-27 13:12:00 Test Item Value Reference Range Interpretation Comments U Alb/Crea (test code = U Alb/Crea) 712.8 [facility] [id number] 13:12:00 Test Item Value Reference Range Interpretation Comments U Microalb (test code = U Microalb) 345.0 [facility]2016-07-27 13:12:00 Test Item Value Reference Range Interpretation Comments U Creatinine (test code = U Creatinine) 48.40 [facility]2016-07-27 13:12:00 Test Item Value Reference Range Interpretation Comments Uric Acid (test code = Uric Acid) 7.9 3.8-8.0 [facility] HospitalNlfwbpnKDEAFHCQUGFK3927-46-96 13:12:00 Test Item Value Reference Range Interpretation Comments AGAP (test code = AGAP) 11.5 10.0-20.0 [facility] HospitalAfrmapgVYOHDXOMONNN4544-87-84 13:12:00 Test Item Value Reference Range Interpretation Comments B/C Ratio (test code = B/C Ratio) 20 6-25 [facility] HospitalZzhsurkEMMYAKAJZUPQ4826-81-42 13:12:00 Test Item Value Reference Range Interpretation Comments Globulin (test code = Globulin) 3.2 2.0-4.0 [facility] HospitalTwxnwgsGEETMXTTXESF9541-75-86 13:12:00 Test Item Value Reference Range Interpretation Comments A/G Ratio (test code = A/G Ratio) 1.4 0.7-1.6 [facility] HospitalNjfxevhGQHVYZNSYCYO1399-01-15 13:12:00 Test Item Value Reference Range Interpretation Comments eGFR (test code = eGFR) 49 [facility] HospitalZgtbhqmKKZPPETRTYJG4719-40-49 13:12:00 Test Item Value Reference Range Interpretation Comments Bili Total (test code = Bili Total) 0.5 0.2-1.3 [facility] HospitalRliyzhyOTTLHYFGZTNY7567-36-82 13:12:00 Test Item Value Reference Range Interpretation Comments Sodium Lvl (test code = Sodium Lvl) 140 135-145 [facility] HospitalEldbmedNTRCSKJNIRTX3029-03-52 13:12:00 Test Item Value Reference Range Interpretation Comments Creatinine Lvl (test code = Creatinine 1.48 0.50-1.40 Lvl) [facility] HospitalWltghotGFRBNRQNJJHP9522-28-04 13:12:00 Test Item Value Reference Range Interpretation Comments BUN (test code = BUN) 29 7-22 [facility] HospitalTtxlrltUWPPTLPTWRJG9330-10-63 13:12:00 Test Item Value Reference Range Interpretation Comments Glucose Lvl (test code = Glucose Lvl) 123 70-99 [facility] HospitalGnmoforFGQFPAWYGTRU2100-26-03 13:12:00 Test Item Value Reference Range Interpretation Comments ALT (test code = ALT) 20 <=65 [facility] HospitalSqgbouoMHHNDVYGBGSD9751-90-84 13:12:00 Test Item Value Reference Range Interpretation Comments AST (test code = AST) 9 <=37 [facility] HospitalRuhlqrsATDEBMXHWQDP7837-32-43 13:12:00 Test Item Value Reference Range Interpretation Comments Alk Phos (test code = Alk Phos) 76 39-136 [facility] HospitalTjejwlePPYPZFIEURJS7043-96-28 13:12:00 Test Item Value Reference Range Interpretation Comments Calcium Lvl (test code = Calcium Lvl) 9.2 8.5-10.5 [facility] HospitalGifumroMHZBKAWCBGDZ5099-04-18 13:12:00 Test Item Value Reference Range Interpretation Comments Albumin Lvl (test code = Albumin Lvl) 4.4 3.5-5.0 [facility] HospitalZeqmrybYYCEVAXPBPYJ2618-51-84 13:12:00 Test Item Value Reference Range Interpretation Comments Potassium Lvl (test code = Potassium 4.5 3.5-5.1 Lvl) [facility] HospitalXahepgxBRLGUTSQOXEI6043-15-77 13:12:00 Test Item Value Reference Range Interpretation Comments Total Protein (test code = Total 7.6 6.4-8.4 Protein) [facility] HospitalSetcjqnPKOYVOCQHTUS7824-23-25 13:12:00 Test Item Value Reference Range Interpretation Comments CO2 (test code = CO2) 28 24-32 [facility] HospitalCgkwcoaNETGFBUOPNRW1374-57-22 13:12:00 Test Item Value Reference Range Interpretation Comments Chloride Lvl (test code = Chloride Lvl) 105 95-109 [facility] CenterIbqlzhuACBUEAHRHZ3977-37-29 13:12:00 Test Item Value Reference Range Interpretation Comments Segs (test code = Segs) 60.0 45.0-75.0 [facility] CenterHklzsisEJBXBDMHYN8687-81-64 13:12:00 Test Item Value Reference Range Interpretation Comments Eosinophils (test code = Eosinophils) 3.3 <=4.0 [facility] CenterCmubcohJWFLZIYSRV1655-77-78 13:12:00 Test Item Value Reference Range Interpretation Comments Monocytes (test code = Monocytes) 8.1 2.0-12.0 [facility] CenterWnzsmgrRWOXHQQYSQ4169-65-31 13:12:00 Test Item Value Reference Range Interpretation Comments Lymphocytes (test code = Lymphocytes) 27.4 20.0-40.0 [facility] CenterFirusgeCHJCGRBKPH3726-45-46 13:12:00 Test Item Value Reference Range Interpretation Comments Monocytes # (test code = Monocytes #) 0.5 <=0.8 [facility]IkwwxzcNFXPPEZOCS4653-32-48 13:12:00 Test Item Value Reference Range Interpretation Comments Basophils (test code = Basophils) 1.2 <=1.0 [facility] CenterNwrexrqCTLTZXWXFX5271-01-37 13:12:00 Test Item Value Reference Range Interpretation Comments Lymphocytes # (test code = Lymphocytes 1.7 1.0-5.5 #) [facility] CenterWwfgsqgFDXVDNPAIL9715-05-85 13:12:00 Test Item Value Reference Range Interpretation Comments Segs-Bands # (test code = Segs-Bands #) 3.6 1.5-8.1 [facility] CenterMioykscKDZEZWCLVS8336-36-39 13:12:00 Test Item Value Reference Range Interpretation Comments Eosinophils # (test code = Eosinophils 0.2 <=0.5 #) [facility] CenterUfpnsbnVXCSDGHBPF0976-63-20 13:12:00 Test Item Value Reference Range Interpretation Comments Basophils # (test code = Basophils #) 0.1 <=0.2 [facility] CenterKqmgmgwUDYZZWFKAX0007-79-09 13:12:00 Test Item Value Reference Range Interpretation Comments Hgb (test code = Hgb) 13.9 14.0-18.0 [facility] CenterRysfaqxUJVRPUTDMF0240-37-91 13:12:00 Test Item Value Reference Range Interpretation Comments RBC (test code = RBC) 4.57 4.70-6.10 [facility] CenterLjztwdaCUMEQUBRQE1924-85-51 13:12:00 Test Item Value Reference Range Interpretation Comments WBC (test code = WBC) 6.1 3.7-10.4 [facility] CenterYqukundGKZZKEKRER5705-05-61 13:12:00 Test Item Value Reference Range Interpretation Comments Hct (test code = Hct) 40.6 42.0-54.0 [facility] CenterNkoipsrCUTKYHBTYI9124-19-05 13:12:00 Test Item Value Reference Range Interpretation Comments MCH (test code = MCH) 30.4 pg 27.0-31.0 [facility] CenterHidkwvjPNRWOEGIHL9767-97-90 13:12:00 Test Item Value Reference Range Interpretation Comments MCV (test code = MCV) 88.9 80.0-94.0 [facility] CenterAodrsagMZXVYDJEZP0701-97-77 13:12:00 Test Item Value Reference Range Interpretation Comments MCHC (test code = MCHC) 34.2 32.0-36.0 [facility]RxsmopyVFKTNOZVZJ4333-00-53 13:12:00 Test Item Value Reference Range Interpretation Comments Platelet (test code = Platelet) 196 133-450 [facility]OyvqmlbKSWVIRXLOS7994-23-34 13:12:00 Test Item Value Reference Range Interpretation Comments RDW (test code = RDW) 13.7 11.5-14.5 [facility] HospitalVxqftvsADBLVNGIAU1529-29-84 13:12:00 Test Item Value Reference Range Interpretation Comments MPV (test code = MPV) 8.5 7.4-10.4 [facility] HospitalMuthipzKEMOQE4693-07-86 13:12:00 Test Item Value Reference Range Interpretation Comments HDL (test code = HDL) 75 [facility] HospitalEykqdzgALEABF0277-67-46 13:12:00 Test Item Value Reference Range Interpretation Comments Chol (test code = Chol) 143 [facility] HospitalDyknkuwBYIQQP9445-60-99 13:12:00 Test Item Value Reference Range Interpretation Comments VLDL (test code = VLDL) 19 [facility] HospitalTsglogjWMWPZR4921-19-43 13:12:00 Test Item Value Reference Range Interpretation Comments Trig (test code = Trig) 94 [facility] HospitalUgjxvokPMIQWI6132-62-50 13:12:00 Test Item Value Reference Range Interpretation Comments LDL (Calculated) (test code = LDL 49 (Calculated)) [facility] HospitalQwisaqoOLUPUY7002-50-33 13:12:00 Test Item Value Reference Range Interpretation Comments CHD Risk (test code = CHD Risk) 1.91 4.00-7.30 [facility] TTSOOXGXS4254[facility]70-82 13:12:00 Test Item Value Reference Range Interpretation Comments Hgb A1C (test code = Hgb A1C) 6.9 [facility] AND [id number] 13:12:00 Test Item Value Reference Range Interpretation Comments UA Color (test code = UA Color) Ltyellow [facility] AND [id number] 13:12:00 Test Item Value Reference Range Interpretation Comments UA Urobilinogen (test code = UA <=1.0 mg/dL 0.1-1.0 Urobilinogen) [facility] AND [id number] 13:12:00 Test Item Value Reference Range Interpretation Comments UA Ketones (test code = UA Negative mg/dL Ketones) [facility] AND [id number] 13:12:00 Test Item Value Reference Range Interpretation Comments UA Glucose (test code = UA Negative mg/dL Glucose) [facility] AND [id number] 13:12:00 Test Item Value Reference Range Interpretation Comments UA Protein (test code = UA Protein) 100 mg/dL [facility] AND [id number] 13:12:00 Test Item Value Reference Range Interpretation Comments UA Leuk Est (test Negative (09/28/15 8:12 code = UA Leuk Est) AM) [facility] AND [id number] 13:12:00 Test Item Value Reference Range Interpretation Comments UA Nitrite (test code Negative (09/28/15 8:12 = UA Nitrite) AM) [facility] AND [id number] 13:12:00 Test Item Value Reference Range Interpretation Comments UA Bili (test code = Negative *NA*(09/28/15 UA Bili) 8:12 AM) [facility] AND [id number] 13:12:00 Test Item Value Reference Range Interpretation Comments UA Sq Epi (test code = UA Sq Epi) None Seen [facility] AND [id number] 13:12:00 Test Item Value Reference Range Interpretation Comments UA Blood (test code = Negative (09/28/15 8:12 UA Blood) AM) [facility] AND [id number] 13:12:00 Test Item Value Reference Range Interpretation Comments UA pH (test code = UA pH) 6.0 5.0-8.0 [facility] AND [id number] 13:12:00 Test Item Value Reference Range Interpretation Comments UA Spec Grav (test code = UA Spec Grav) 1.010 [facility] AND [id number] 13:12:00 Test Item Value Reference Range Interpretation Comments UA Turbidity (test code = Clear (09/28/15 8:12 UA Turbidity) AM) [facility]2016-07-27 13:12:00 Test Item Value Reference Range Interpretation Comments U Alb/Crea (test code = U Alb/Crea) 712.8 [facility] [id number] 13:12:00 Test Item Value Reference Range Interpretation Comments U Microalb (test code = U Microalb) 345.0 [facility]URINE AEPI1953-06-03 13:12:00 Test Item Value Reference Range Interpretation Comments U Creatinine (test code = U Creatinine) 48.40 [facility]CHEM XWUDI8561-28-58 13:12:00 Test Item Value Reference Range Interpretation Comments Uric Acid (test code = Uric Acid) 7.9 3.8-8.0 [facility]WnqrjswBIUAAZZIEOYK4365-76-45 13:12:00 Test Item Value Reference Range Interpretation Comments AGAP (test code = AGAP) 11.5 10.0-20.0 [facility] HospitalZmjbeddZPVRVWWQFMMA5044-76-22 13:12:00 Test Item Value Reference Range Interpretation Comments B/C Ratio (test code = B/C Ratio) 20 6-25 [facility] HospitalKqewjplAPOGJJSMGOFZ2537-50-03 13:12:00 Test Item Value Reference Range Interpretation Comments Globulin (test code = Globulin) 3.2 2.0-4.0 [facility] HospitalPqwuaaaOTLVYHPEAFED9801-90-87 13:12:00 Test Item Value Reference Range Interpretation Comments A/G Ratio (test code = A/G Ratio) 1.4 0.7-1.6 [facility] HospitalNkxpgpdEYKAZBFXRRKX7915-64-31 13:12:00 Test Item Value Reference Range Interpretation Comments eGFR (test code = eGFR) 49 [facility] HospitalVbghtteYZUPRMMMEMIR1412-68-62 13:12:00 Test Item Value Reference Range Interpretation Comments Bili Total (test code = Bili Total) 0.5 0.2-1.3 [facility] HospitalFsholqdJUTLYZPXOZAZ9291-62-48 13:12:00 Test Item Value Reference Range Interpretation Comments Sodium Lvl (test code = Sodium Lvl) 140 135-145 [facility] HospitalXfbzllfZGADPFWUOCPA0237-55-27 13:12:00 Test Item Value Reference Range Interpretation Comments Creatinine Lvl (test code = Creatinine 1.48 0.50-1.40 Lvl) [facility] HospitalOeiwjadCOBHUVTMUTOI9261-70-07 13:12:00 Test Item Value Reference Range Interpretation Comments BUN (test code = BUN) 29 7-22 [facility] HospitalNjegnivELIMXAIDTYMZ5811-43-89 13:12:00 Test Item Value Reference Range Interpretation Comments Glucose Lvl (test code = Glucose Lvl) 123 70-99 [facility] HospitalGrufcacSSMRSXBXFYEY1813-25-65 13:12:00 Test Item Value Reference Range Interpretation Comments ALT (test code = ALT) 20 <=65 [facility] HospitalGfkrqhgUYDLNCQMVYOV0757-53-99 13:12:00 Test Item Value Reference Range Interpretation Comments AST (test code = AST) 9 <=37 [facility] HospitalInfwxobLSULQYCNCUSV0275-48-68 13:12:00 Test Item Value Reference Range Interpretation Comments Alk Phos (test code = Alk Phos) 76 39-136 [facility] HospitalDwdolxqYIBWGEXGRWAD6042-58-54 13:12:00 Test Item Value Reference Range Interpretation Comments Calcium Lvl (test code = Calcium Lvl) 9.2 8.5-10.5 [facility] HospitalYfgoyniXVJNIUFCILQX7875-45-54 13:12:00 Test Item Value Reference Range Interpretation Comments Albumin Lvl (test code = Albumin Lvl) 4.4 3.5-5.0 [facility] HospitalFpozksqEEZJTRMEXJDP3504-44-23 13:12:00 Test Item Value Reference Range Interpretation Comments Potassium Lvl (test code = Potassium 4.5 3.5-5.1 Lvl) [facility] HospitalEezinznMCQOZHBUCFKL1065-54-17 13:12:00 Test Item Value Reference Range Interpretation Comments Total Protein (test code = Total 7.6 6.4-8.4 Protein) [facility] HospitalMxlamreLOXYWXIQZADI6261-37-16 13:12:00 Test Item Value Reference Range Interpretation Comments CO2 (test code = CO2) 28 24-32 [facility] HospitalMdovxurDNMNHDUYYUQG2527-49-17 13:12:00 Test Item Value Reference Range Interpretation Comments Chloride Lvl (test code = Chloride Lvl) 105 95-109 [facility] CenterGpcuxecKOCVQZWHDQ7367-94-31 13:12:00 Test Item Value Reference Range Interpretation Comments Segs (test code = Segs) 60.0 45.0-75.0 [facility] CenterSwuzfwjQBNBTXDIIF8935-38-68 13:12:00 Test Item Value Reference Range Interpretation Comments Eosinophils (test code = Eosinophils) 3.3 <=4.0 [facility] CenterMtgymlyBWFJHJXTXV4248-90-97 13:12:00 Test Item Value Reference Range Interpretation Comments Monocytes (test code = Monocytes) 8.1 2.0-12.0 [facility] CenterKqrfzypBLCWMDMGYK0922-94-24 13:12:00 Test Item Value Reference Range Interpretation Comments Lymphocytes (test code = Lymphocytes) 27.4 20.0-40.0 [facility] CenterOskwmqoVDZVBBMYER3808-34-83 13:12:00 Test Item Value Reference Range Interpretation Comments Monocytes # (test code = Monocytes #) 0.5 <=0.8 [facility] CenterJhrsvhzQBVVOZGZDL6026-84-93 13:12:00 Test Item Value Reference Range Interpretation Comments Basophils (test code = Basophils) 1.2 <=1.0 [facility] CenterAugdpogGKBSBKAYCS8567-93-51 13:12:00 Test Item Value Reference Range Interpretation Comments Lymphocytes # (test code = Lymphocytes 1.7 1.0-5.5 #) [facility] CenterPmjlgwnPVIKIKSXKA3044-49-53 13:12:00 Test Item Value Reference Range Interpretation Comments Segs-Bands # (test code = Segs-Bands #) 3.6 1.5-8.1 [facility] CenterXcenffbSBBQCTHHGW0005-97-12 13:12:00 Test Item Value Reference Range Interpretation Comments Eosinophils # (test code = Eosinophils 0.2 <=0.5 #) [facility] CenterPriujgmABIHINLUYJ1731-99-66 13:12:00 Test Item Value Reference Range Interpretation Comments Basophils # (test code = Basophils #) 0.1 <=0.2 [facility] CenterXrrghfbRUQBDXCFYK3505-60-37 13:12:00 Test Item Value Reference Range Interpretation Comments Hgb (test code = Hgb) 13.9 14.0-18.0 [facility] CenterZgfmethDDLCNSHZAT0416-18-42 13:12:00 Test Item Value Reference Range Interpretation Comments RBC (test code = RBC) 4.57 4.70-6.10 [facility] CenterTjxooghEHHLODSCEH5457-67-66 13:12:00 Test Item Value Reference Range Interpretation Comments WBC (test code = WBC) 6.1 3.7-10.4 [facility] CenterPmrztriYBWDLZLRRQ5467-23-33 13:12:00 Test Item Value Reference Range Interpretation Comments Hct (test code = Hct) 40.6 42.0-54.0 [facility] CenterCbpahdiZRALHDIPBM6318-75-98 13:12:00 Test Item Value Reference Range Interpretation Comments MCH (test code = MCH) 30.4 pg 27.0-31.0 [facility] CenterMrmtvjvVONKJACWDX4355-14-25 13:12:00 Test Item Value Reference Range Interpretation Comments MCV (test code = MCV) 88.9 80.0-94.0 [facility]YrtqdkvJAOCFHZVVG2496-74-17 13:12:00 Test Item Value Reference Range Interpretation Comments MCHC (test code = MCHC) 34.2 32.0-36.0 [facility]OtwjlzdIMRDXTPIQP2737-18-68 13:12:00 Test Item Value Reference Range Interpretation Comments Platelet (test code = Platelet) 196 133-450 [facility] HospitalKafgbbnSWQYQLULLQ2471-04-57 13:12:00 Test Item Value Reference Range Interpretation Comments RDW (test code = RDW) 13.7 11.5-14.5 [facility]WlccvpjUONNTFVSLM4981-51-35 13:12:00 Test Item Value Reference Range Interpretation Comments MPV (test code = MPV) 8.5 7.4-10.4 [facility]NlfkqmwDOFOQA8115-04-70 13:12:00 Test Item Value Reference Range Interpretation Comments HDL (test code = HDL) 75 [facility]SzqerjoGSDARD5366-71-95 13:12:00 Test Item Value Reference Range Interpretation Comments Chol (test code = Chol) 143 [facility]XtjhnaeVBOWOT4853-71-05 13:12:00 Test Item Value Reference Range Interpretation Comments VLDL (test code = VLDL) 19 [facility] HospitalIjhkjnqJTPUGZ1160-82-73 13:12:00 Test Item Value Reference Range Interpretation Comments Trig (test code = Trig) 94 [facility] HospitalVrsmtqpICLIEL1855-61-99 13:12:00 Test Item Value Reference Range Interpretation Comments LDL (Calculated) (test code = LDL 49 (Calculated)) [facility] HospitalPptevhsZAZPWH0029-16-85 13:12:00 Test Item Value Reference Range Interpretation Comments CHD Risk (test code = CHD Risk) 1.91 4.00-7.30 [facility] EFFSPCHMU9905-26-80 13:12:00 Test Item Value Reference Range Interpretation Comments Hgb A1C (test code = Hgb A1C) 6.9 [facility]ann[facility] AND [id number] 13:12:00 Test Item Value Reference Range Interpretation Comments UA Color (test code = UA Color) Ltyellow [facility]annH[facility] AND [id number] 13:12:00 Test Item Value Reference Range Interpretation Comments UA Urobilinogen (test code = UA <=1.0 mg/dL 0.1-1.0 Urobilinogen) [facility] AND [id number] 13:12:00 Test Item Value Reference Range Interpretation Comments UA Ketones (test code = UA Negative mg/dL Ketones) [facility] AND [id number] 13:12:00 Test Item Value Reference Range Interpretation Comments UA Glucose (test code = UA Negative mg/dL Glucose) [facility] AND WSUUV2629-23-35 13:12:00 Test Item Value Reference Range Interpretation Comments UA Protein (test code = UA Protein) 100 mg/dL [facility] AND [id number] 13:12:00 Test Item Value Reference Range Interpretation Comments UA Leuk Est (test Negative (09/28/15 8:12 code = UA Leuk Est) AM) [facility] AND [id number] 13:12:00 Test Item Value Reference Range Interpretation Comments UA Nitrite (test code Negative (09/28/15 8:12 = UA Nitrite) AM) [facility] AND [id number] 13:12:00 Test Item Value Reference Range Interpretation Comments UA Bili (test code = Negative *NA*(09/28/15 UA Bili) 8:12 AM) [facility] AND [id number] 13:12:00 Test Item Value Reference Range Interpretation Comments UA Sq Epi (test code = UA Sq Epi) None Seen [facility] AND [id number] 13:12:00 Test Item Value Reference Range Interpretation Comments UA Blood (test code = Negative (09/28/15 8:12 UA Blood) AM) [facility] AND [id number] 13:12:00 Test Item Value Reference Range Interpretation Comments UA pH (test code = UA pH) 6.0 5.0-8.0 [facility] AND [id number] 13:12:00 Test Item Value Reference Range Interpretation Comments UA Spec Grav (test code = UA Spec Grav) 1.010 [facility] AND ZNKSY4594-38-19 13:12:00 Test Item Value Reference Range Interpretation Comments UA Turbidity (test code = Clear (09/28/15 8:12 UA Turbidity) AM) [facility] [id number] 13:12:00 Test Item Value Reference Range Interpretation Comments U Alb/Crea (test code = U Alb/Crea) 712.8 Ivana Garcia JBOV1089-12-45 13:12:00 Test Item Value Reference Range Interpretation Comments U Microalb (test code = U Microalb) 345.0 Ivana Garcia HKUY7593-29-08 13:12:00 Test Item Value Reference Range Interpretation Comments U Creatinine (test code = U Creatinine) 48.40 [facility] Consult Notes Date/Time Note Provider Source 2022-10-22 8704-94-75U31:54:00Associated [place] [facility] 13:54:00 Order(s): CONSULT ADULT PHYSICAL PT THERAPY [...] 01/31/2020 Acute respiratory failure with hypoxia 11/07/2019 Wxnsm-fu-tyctdbh kidney injury 11/05/2019 Adhesive capsulitis of left shoulder 04/22/2019 Anxiety Benign prostatic hyperplasia (BPH) with straining on urination 10/21/2020 Cervical spinal stenosis 10/07/2017 Added automatically from request for surgery [id number] Cervicalgia 07/03/2017 Chronic right shoulder pain 04/01/2017 [...] 10/07/2017 Added automatically from request for surgery [id number] Other insomnia 04/01/2017 Postlaminectomy syndrome 12/30/2017 Added automatically from request for surgery [id number] Range of motion deficit 07/03/2017 Right leg pain 11/05/2019 Right upper limb pain 07/03/2017 Sciatic pain, right Spondylosis 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 12/30/2017 Added automatically from request for surgery [id number] Steroid-induced hyperglycemia 02/12/2019 Type 2 diabetes mellitus with diabetic nephropathy, without long-term current use of insulin 03/29/2017 diet controlled Vitamin D deficiency 11/08/2020 PSH: Past Surgical History: Procedure Laterality Date KNEE ARTHROSCOPY Left MEDIAL BRANCH BLOCK 10/24/2017 MEDIAL BRANCH BLOCK (SHX) Right 10/24/2017 Surgeon: Imtiaz Vázquez MD; Location: [facility] Location OTHER neck surgery RADIOFREQUENCY THERMOCOAGULATION 11/28/2017 RADIOFREQUENCY THERMOCOAGULATION Right 11/28/2017 Surgeon: Imtiaz Vázquez MD; Location: [facility] Location RADIOFREQUENCY THERMOCOAGULATION Left 02/06/2018 Surgeon: Imtiaz Vázquez MD; Location: [facility] Location Prior Living Situation: lives alone [...] taking pain meds and Nursing NotifiedCOMMUNICATIONPrimary Language: Kazakh Able to Verbalize needs: Yes Vision:reading glasses Hearing: mild [place] ORIENTATION/COGNITION:Oriented to: person, place, date/time, and situation [...] Minutes: 19 minErmelinda Lentz PT, DPTLicense Number: [id number] [facility] [id number] xywdAD2933-92-96Y93:31:22Consult [id number] .[id number] for patient shzg35924-1Livjjuk [id number] J Sabbahi PT[address] [id number] DUTVECBSCHZINCKZKJUVUB7350-62-16O15: 31:221.2.840.557344.1.72.3.15|1.2.84 0.352479.1.13.104.2.7.2.727879_18793 77813 2022-10-22 2607-72-79M33:54:00Associated Sarah Lui [facility] 13:54:00 Order(s): CONSULT ADULT OCCUPATIONAL [place] O T THERAPY OT GENERAL EVALUATIONConsult received via [employer], EMR reviewed and evaluation completed 10/22/22. Patient [...] 01/31/2020 Acute respiratory failure with hypoxia 11/07/2019 Hoeer-zw-feygrbi kidney injury 11/05/2019 Adhesive capsulitis of left shoulder 04/22/2019 Anxiety Benign prostatic hyperplasia (BPH) with straining on urination 10/21/2020 Cervical spinal stenosis 10/07/2017 Added automatically from request for surgery [id number] Cervicalgia 07/03/2017 Chronic right shoulder pain 04/01/2017 [...] 10/07/2017 Added automatically from request for surgery [id number] Other insomnia 04/01/2017 Postlaminectomy syndrome 12/30/2017 Added automatically from request for surgery [id number] Range of motion deficit 07/03/2017 Right leg pain 11/05/2019 Right upper limb pain 07/03/2017 Sciatic pain, right Spondylosis 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 12/30/2017 Added automatically from request for surgery [id number] Steroid-induced hyperglycemia 02/12/2019 Type 2 diabetes mellitus with diabetic nephropathy, without long-term current use of insulin 03/29/2017 diet controlled Vitamin D deficiency 11/08/2020 PSH: Past Surgical History: Procedure Laterality Date KNEE ARTHROSCOPY Left MEDIAL BRANCH BLOCK 10/24/2017 MEDIAL BRANCH BLOCK (SHX) Right 10/24/2017 Surgeon: Imtiaz Vázquez MD; Location: [facility] Location OTHER neck surgery RADIOFREQUENCY THERMOCOAGULATION 11/28/2017 RADIOFREQUENCY THERMOCOAGULATION Right 11/28/2017 Surgeon: Imtiaz Vázquez MD; Location: [facility] Location RADIOFREQUENCY THERMOCOAGULATION Left 02/06/2018 Surgeon: Imtiaz Vázquez MD; Location: [facility] Location PAIN: Pain Location: diffuse/generalizedPain rating [...] verbalizes understanding of teaching provided.Sarah Nye OTR, [facility] HospitalDepartment of Rehab ServicesTotal Timed Treatment Codes: [...] to enable patient to complete evaluation component. 92143-5Dbemfry ewdxGF4521-31-75V31:32:10Consult [id number] .210903|[id number] for patient ohyo39523-5Ollijzg [id number] M. [place] [id number] ZBFRZRUKMGKECZLUHQKVNK7225-49-90C19: 32:101.2.840.943808.1.72.3.15|1.2.84 0.224350.1.13.104.2.7.2.727879_18793 54961 2022-10-22 9145-90-77V87:26:28Associated QUALITY CONTROL TECHNICIAN-ACUTE CARE [facility] 10:26:28 Order(s): CONSULT CARDIOLOGY-HEART MIDLEVEL PROV IDER FAILURE MEDICAL CONSULTSummary: Increase bumex 0.5 mg BID PO. HF will sign off [facility] HEART FAILURE CONSULTReason for consult: CHFChief complaint: [...] 01/31/2020 Acute respiratory failure with hypoxia 11/07/2019 Ekoik-yk-bpashit kidney injury 11/05/2019 Adhesive capsulitis of left shoulder 04/22/2019 Anxiety Benign prostatic hyperplasia (BPH) with straining on urination 10/21/2020 Cervical spinal stenosis 10/07/2017 Added automatically from request for surgery [id number] Cervicalgia 07/03/2017 Chronic right shoulder pain 04/01/2017 [...] 10/07/2017 Added automatically from request for surgery [id number] Other insomnia 04/01/2017 Postlaminectomy syndrome 12/30/2017 Added automatically from request for surgery [id number] Range of motion deficit 07/03/2017 Right leg pain 11/05/2019 Right upper limb pain 07/03/2017 Sciatic pain, right Spondylosis 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 12/30/2017 Added automatically from request for surgery [id number] Steroid-induced hyperglycemia 02/12/2019 Type 2 diabetes mellitus [...] Vázquez MD; Location: [facility] [place] Past Family History: Family History Problem Relation Age of Onset [place] (myocardial infarction) Father age 30s High cholesterol Father Liver failure Father ETOH cirrhosis [place] (myocardial infarction) Brother age 69 Cancer Sister unknown type High cholesterol Mother Current Facility-Administered Medications: bumetanide (BUMEX) tablet 0.5 mg, 0.5 mg, Oral, QAM+PM, Radha Vu AGACNP acetaZOLAMIDE (DIAMOX) tablet 250 mg, 250 mg, Oral, DAILY, Jaime Thompson MD, 250 mg at 10/22/22 0847 budesonide-formoteroL (SYMBICORT) 160-4.5 mcg/actuation inhaler 2 Puff, 2 Puff, Inhalation, BID, Jaonn Vázquez MD, 2 Puff at 10/22/22 0717 cloNIDine (CATAPRES) tablet 0.2 mg, 0.2 mg, Oral, TIDPRN, Delaney Bernstein MD, 0.2 mg at 10/22/22 0634 dextrose 10% (D10W) bolus infusion 250 mL, 250 mL, IV Infusion, PRN - SEE INSTRUCTIONS, Jaime Thompson MD fluticasone propionate 50 mcg/actuation nasal spray 1 Hunter, 1 Hunter, Nasal, DAILY, Jaime Thompson MD, 1 Hunter at 10/22/22 0849 glucagon (GLUCAGEN DIAGNOSTIC KIT) [...] QHS, Jaime Thompson MD, 40 mg at 10/21/222031 predniSONE (DELTASONE) tablet 20 mg, 20 mg, [...] MINI-BAG, 1,000 mg, IV Piggyback, Q24H ABX, Fantasma Reaves MD, Stopped at 10/22/22 0051 heparin (porcine) [...] ordering referrals and/or communicating with other health interior plant caretaker (when not separately reported), documenting clinical information in the electronic or other health record, and care coordination (not separately reported).- hemodynamically stable- increase bumex to 0.5 mg BID and monitor response- continue current and rest of medications as per primary team- will sign off today. Please contact us if any questionsJOSE Barrington العراقي MD, [facility], [facility], [facility]ARE SYSTEMAAssistant ProfessorCardiology, Advanced Heart Failure, LVAD & Transplant ServiceDate of service: [id number] [id number]-Gjxozabv, Jose C1.2.840.827827.1.13.104.2.7.2.08661 8Mpfnbkhxow-FkqosekhXobhSAK8886-15-2 2T15:47:59Consult noteTXT1.2.840.260800.1.13.104.2.7.2 .699057|[id number] for patient puqe90122-1Udlwncm noteLNNP-ACUTE CARE MIDLEVEL PROVIDERNP-ACUTE CARE MIDLEVEL PROVIDERUT[address] At[id number] SKGECACBFFKKJDDIHKMCVW2351-67-78L65: 47:591.2.840.344565.1.72.3.15|1.2.84 0.483329.1.13.104.2.7.2.727879_18791 80086 2022-10-19 9916-87-90C73:39:13Formatting of [facility] 09:39:13 this note is different from the original.PULMONARY CC MEDICINE CLS ADMIT H&PPCP: Liborio Westbrook of Service: 3CHIEF COMPLAINT: SOBRespiratory failureHISTORY OF PRESENT JOBEJWL15 year old male brought to the [facility] ED by EMS for evaluation of SOB. Denies any cough. No chest pain. SOB began this morning. Pt was recently admitted to [facility] 10/05/2022 for management of Pneumonia and just [...] 01/31/2020 Acute respiratory failure with hypoxia 11/07/2019 Dtoav-ip-oxxsgqp kidney injury 11/05/2019 Adhesive capsulitis of left shoulder 04/22/2019 Anxiety Benign prostatic hyperplasia (BPH) with straining on urination 10/21/2020 Cervical spinal stenosis 10/07/2017 Added automatically from request for surgery [id number] Cervicalgia 07/03/2017 Chronic right shoulder pain 04/01/2017 [...] 10/07/2017 Added automatically from request for surgery [id number] Other insomnia 04/01/2017 Postlaminectomy syndrome 12/30/2017 Added automatically from request for surgery [id number] Range of motion deficit 07/03/2017 Right leg pain 11/05/2019 Right upper limb pain 07/03/2017 Sciatic pain, right Spondylosis 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 12/30/2017 Added automatically from request for surgery [id number] Steroid-induced hyperglycemia 02/12/2019 Type 2 diabetes mellitus [...] Family History Problem Relation Age of Onset [place] (myocardial infarction) Father age 30s High cholesterol Father Liver failure Father ETOH cirrhosis [place] (myocardial infarction) Brother age 69 Cancer Sister [...] Female Social History Narrative [place] to leave [place] - unable to stay in [place] to [place] of living [place]. 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 METABOLIC PANEL ([id number]) Collection Time: 10/19/22 4:08 AM Result Value [...] Lead ROUTINE ONCE EKG-12 Lead ROUTINE ONCE ASSESSMENT/PLANRicki Sarahi is a 72 year old male with PMH as listed above, admitted to the hospital with:Acute hypoxic and hypercapnic respiratory failure due to volume overload/CHFAcute on chronic HFpEFVolume overloadCOPD - severe obstructive ventilatory defect with air trappingDemand ischemia vs NSTEMIAKI on FEAbqoqdgyzislANB81 defAnemia of inflammation and macrocytosis PlanAdmit to ICUSupplemental O2Vent supportSedation protocolCT chestIV lasixFoleyI/OsWts IV antbx empiricABGINRInsulin SSGlycemic controlAA nebsINH pulmicortTrend jvepwldjKxaiCtrPJSLPDQ24 injectionGI and DVT ppxReview home medsLabs and [...] and treating other patients and teaching time. 05658-4Yotpeif znqyIL5949-29-42K20:24:55Consult noteTXT1.2.840.512163.1.13.104.2.7.2 .427387|[id number] for patient tvqt46808-0Tmmwxdo note[address][id number] BBRVDIULEWHOCOVJEETWEI6410-00-25V57: 24:551.2.840.626662.1.72.3.15|1.2.84 0.250141.1.13.104.2.7.2.727879_18777 42213 2022-10-08 0208-09-28Y69:20:54Associated Pauline Henry PT [facility] 11:20:54 Order(s): CONSULT ADULT PHYSICAL [...] 01/31/2020 Acute respiratory failure with hypoxia 11/07/2019 Pubdf-ei-kdwykdj kidney injury 11/05/2019 Adhesive capsulitis of left shoulder 04/22/2019 Anxiety Benign prostatic hyperplasia (BPH) with straining on urination 10/21/2020 Cervical spinal stenosis 10/07/2017 Added automatically from request for surgery [id number] Cervicalgia 07/03/2017 Chronic right shoulder pain 04/01/2017 [...] 10/07/2017 Added automatically from request for surgery [id number] Other insomnia 04/01/2017 Postlaminectomy syndrome 12/30/2017 Added automatically from request for surgery [id number] Range of motion deficit 07/03/2017 Right leg pain 11/05/2019 Right upper limb pain 07/03/2017 Sciatic pain, right Spondylosis 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 12/30/2017 Added automatically from request for surgery [id number] Steroid-induced hyperglycemia 02/12/2019 Type 2 diabetes mellitus [...] Right 11/28/2017 Surgeon: Imtiaz Vázquez MD; Location: [facility] RADIOFREQUENCY THERMOCOAGULATION Left 02/06/2018 Surgeon: Imtiaz Vázquez MD; Location: [facility] Prior Living Situation: lives alone [...] denies pain before and after sessionCOMMUNICATIONPrimary Language: Kazakh Able to Verbalize needs: Yes Vision:good; no [...] 10 minTotal Treatment Time in Minutes: 15 SHUN HayesX PT Ujogzce7850288FQEE Health ADCRehabilitation Services [phone] (phone) (fax) 41368-7Nlfngby edmxGS8459-76-24V40:36:15Consult noteTXT1.2.840.085388.1.13.104.2.7.2 .982481|[id number] for patient jmqn81969-3Hzocipu [id number] Carl [address] PntmPrlv[id number] EWJCRUJVQXSACYDVGRWDKV5557-86-66F70: 36:151.2.840.995399.1.72.3.15|1.2.84 0.554553.1.13.104.2.7.2.727879_18681 47204 2022-10-06 0093-15-50X94:37:50Associated [facility] 12:37:50 Order(s): CONSULT NEPHROLOGY Consultation requested by: [...] Pt reports just completing a stint in [facility].Pt presented to the hospital for shortness of breath, couldn't catch his breath and some increase in peripheral edema.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 - Both Eyes 01/31/2020 Acute respiratory failure with hypoxia 11/07/2019 Mikxe-uv-hxojllt kidney injury 11/05/2019 Adhesive capsulitis of left shoulder 04/22/2019 Anxiety Benign prostatic hyperplasia (BPH) with straining on urination 10/21/2020 Cervical spinal stenosis 10/07/2017 Added automatically from request for surgery [id number] Cervicalgia 07/03/2017 Chronic right shoulder pain 04/01/2017 [...] 10/07/2017 Added automatically from request for surgery [id number] Other insomnia 04/01/2017 Postlaminectomy syndrome 12/30/2017 Added automatically from request for surgery [id number] Range of motion deficit 07/03/2017 Right leg pain 11/05/2019 Right upper limb pain 07/03/2017 Sciatic pain, right Spondylosis 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 12/30/2017 Added automatically from request for surgery [id number] Steroid-induced hyperglycemia 02/12/2019 Type 2 diabetes mellitus [...] Left 02/06/2018 Surgeon: Imtiaz Vázquez MD; Location: [facility] Location Family History Problem Relation Age of Onset [place] (myocardial infarction) Father age 30s High cholesterol Father Liver failure Father ETOH cirrhosis [place] (myocardial infarction) Brother age 69 Cancer Sister [...] mg IV Piggyback Q24H ABX Stopped at 10/05/222158 baclofen (LIORESAL) tablet 10 mg 10 mg [...] focalLABORATORYReviewed in the EMRCHART REVIEW: ASSESSMENT and PLANJames Sarahi is a 72 year old male [...] this time due to GFR < 30 ml/minNaveed MD Chana, FASN 75372-6Aaynmgs trvrWR2068-90-66I38:50:38Consult noteTXT1.2.840.054748.1.13.104.2.7.2 .071608|[id number] for patient aahk58559-5Dchoorc [address] [id number] NOHWKDGUNCBPLKDOVMLNAH8041-22-02P70: 50:381.2.840.526599.1.72.3.15|1.2.84 0.476588.1.13.104.2.7.2.727879_18674 85172 2022-10-06 9388-69-30Z99:19:05Associated [facility] 10:19:05 Order(s): CONSULT CARDIOLOGY [facility] Cardiology Consult NotePatient: Ricki McclainDate of : 1950MRN: [id number] of service: 10/06/2022 Primary Care Physician: Liborio [...] acute COPD exacerbation. Patient was discharged from [facility] ADC to [facility] rehab.Discharged from the rehab 1 [...] 01/31/2020 Acute respiratory failure with hypoxia 11/07/2019 Uricv-cp-vwoyhpo kidney injury 11/05/2019 Adhesive capsulitis of left shoulder 04/22/2019 Anxiety Benign prostatic hyperplasia (BPH) with straining on urination 10/21/2020 Cervical spinal stenosis 10/07/2017 Added automatically from request for surgery [id number] Cervicalgia 07/03/2017 Chronic right shoulder pain 04/01/2017 [...] 10/07/2017 Added automatically from request for surgery [id number] Other insomnia 04/01/2017 Postlaminectomy syndrome 12/30/2017 Added automatically from request for surgery [id number] Range of motion deficit 07/03/2017 Right leg pain 11/05/2019 Right upper limb pain 07/03/2017 Sciatic pain, right Spondylosis 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 12/30/2017 Added automatically from request for surgery [id number] Steroid-induced hyperglycemia 02/12/2019 Type 2 diabetes mellitus [...] Family History Problem Relation Age of Onset [place] (myocardial infarction) Father age 30s High cholesterol Father Liver failure Father ETOH cirrhosis [place] (myocardial infarction) Brother age 69 Cancer Sister [...] Female Social History Narrative [place] - unable to stay [place] due [place] of living [place]. 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 RRT Social Determinants of Health Financial Resource Strain: [...] IV piggyback, 500 mg, IV Piggyback, Q24H ABX, Fredo Trinidad DO, Stopped at 10/05/22 2159 baclofen (LIORESAL) [...] tablet 150 mcg, 150 mcg, Oral, QAM-0600, Faina Badillo MD, 150 mcg at 10/06/22 0620 magnesium oxide (MAG-OX 400) tablet 400 mg, 400 mg, Oral, DAILY, Faina Badillo MD, 400 mg at 10/06/22 0929 melatonin (MELATIN) tablet 6 mg, 6 mg, Oral, Q, Faina Badillo MD, 6 mg at 10/05/22 2306 mirtazapine (REMERON) tablet 7.5 mg, 7.5 mg, Oral, ANJANA, Faina Badillo MD NIFEdipine ER tablet 30 mg, 30 mg, Oral, QAM, Faina Badillo MD, 30 mg at 10/06/22 0930 pravastatin (PRAVACHOL) tablet 40 mg, 40 mg, Oral, ANJANA, Faina Badillo MD tamsulosin (FLOMAX) capsule 0.4 [...] as per primary team.Last Two A1C Results ([facility], POCT, [facility]) Recent Labs 1 10/01/2310 HGBA1C 5.0 5.3 -- DDRKIUA2R -- -- 6.1* CKD 3/4: Rx/work-up as per primary team.My diagnostic impression and treatment plans were discussed at length with the patient. Thank you for allowing us to participate in the care of Ricki Mcclain.If you have any questions or concerns please feel free to call our office at [phone]. I would be happy to be of further assistance for Ricki Mcclain wellbeing. Voice recognition software has been used to create portions of this document. An attempt to proofread has been made to minimize errors. Please do not hesitate to call with any questions. Angel Porter MD Nursing Home Director, [facility] [address]-7Hadmiqa twqlVW4331-68-38K55:45:03Consult noteTXT1.2.840.661158.1.13.104.2.7.2 .405394|[id number] for patient hdxq85108-2Iomlvsr note[address] Xe[id number] JBNYKYCAKMMSWLLKEKKHKC4700-52-96L45: 45:031.2.840.983939.1.72.3.15|1.2.84 0.748093.1.13.104.2.7.2.727879_18674 47944 2022-09-17 9783-72-29H10:23:18Associated [facility] 19:23:18 Order(s): CONSULT NEPHROLOGY Nephrology ConsultAdmit Date: [...] is what caused him to wake up, 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 EMS was then called and [...] labs as ordered. Daily weight recommended.Stage I DIA in the setting of syncopeCKD IV with [...] 01/31/2020 Acute respiratory failure with hypoxia 11/07/2019 Khtxq-xc-mdojmip kidney injury 11/05/2019 Adhesive capsulitis of left shoulder 04/22/2019 Anxiety Benign prostatic hyperplasia (BPH) with straining on urination 10/21/2020 Cervical spinal stenosis 10/07/2017 Added automatically from request for surgery [id number] Cervicalgia 07/03/2017 Chronic right shoulder pain 04/01/2017 [...] 10/07/2017 Added automatically from request for surgery [id number] Other insomnia 04/01/2017 Postlaminectomy syndrome 12/30/2017 Added automatically from request for surgery [id number] Range of motion deficit 07/03/2017 Right leg pain 11/05/2019 Right upper limb pain 07/03/2017 Sciatic pain, right Spondylosis 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 12/30/2017 Added automatically from request for surgery [id number] Steroid-induced hyperglycemia 02/12/2019 Type 2 diabetes mellitus [...] Imtiaz Vázquez MD; Location: [facility] Location ALLERGIESNo Active AllergiesMEDICATIONS reviewed in [...] Female Social History Narrative [place] - [place] to stay [place] due [place] of living [place]. 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, LUCA Social Determinants of Health Financial Resource Strain: [...] HistoryFamily History Problem Relation Age of Onset [place] (myocardial infarction) Father age 30s High cholesterol Father Liver failure Father ETOH cirrhosis [place] (myocardial infarction) Brother age 69 Cancer Sister unknown type High cholesterol Mother 44018-8Eaxlrwf mcmpQA2250-33-95D80:32:18Consult noteTXT1.2.840.286935.1.13.104.2.7.2 .660503|[id number] for patient [address][id number] KOTMBEBTABUXITXKOJYPTA6022-78-41N37: 32:181.2.840.565840.1.72.3.15|1.2.84 0.217462.1.13.104.2.7.2.727879_18520 86422 History and Physical Notes Date/Time Note Provider Source 2022-10-05 0307-15-21Z31:44:11Formatting of IM-INTERNAL [facility] 21:44:11 this note is different from the MEDICINE STAFF original.[facility] Hospitalist Admission H&P Date of Service: 3CHIEF [...] 01/31/2020 Acute respiratory failure with hypoxia 11/07/2019 Nwxyv-xo-ukjtbat kidney injury 11/05/2019 Adhesive capsulitis of left shoulder 04/22/2019 Anxiety Benign prostatic hyperplasia (BPH) with straining on urination 10/21/2020 Cervical spinal stenosis 10/07/2017 Added automatically from request for surgery [id number] Cervicalgia 07/03/2017 Chronic right shoulder pain 04/01/2017 [...] 10/07/2017 Added automatically from request for surgery [id number] Other insomnia 04/01/2017 Postlaminectomy syndrome 12/30/2017 Added automatically from request for surgery [id number] Range of motion deficit 07/03/2017 Right leg pain 11/05/2019 Right upper limb pain 07/03/2017 Sciatic pain, right Spondylosis 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 12/30/2017 Added automatically from request for surgery [id number] Steroid-induced hyperglycemia 02/12/2019 Type 2 diabetes mellitus with diabetic nephropathy, without long-term current use of insulin 03/29/2017 diet controlled Vitamin D deficiency 11/08/2020 PAST SURGICAL HISTORYPast Surgical History: Procedure Laterality Date KNEE ARTHROSCOPY Left MEDIAL BRANCH BLOCK 10/24/2017 MEDIAL BRANCH BLOCK (SHX) Right 10/24/2017 Surgeon: Imtiaz Vázquez MD; Location: [facility] OTHER neck surgery RADIOFREQUENCY THERMOCOAGULATION 11/28/2017 RADIOFREQUENCY THERMOCOAGULATION Right 11/28/2017 Surgeon: Imtiaz Vázquez MD; Location: [facility] RADIOFREQUENCY THERMOCOAGULATION Left 02/06/2018 Surgeon: Imtiaz Vázquez MD; Location: [facility] ALLERGIESNo Known AllergiesMEDICATIONSCurrent home medication list reviewed:Current [...] HISTORYFamily History Problem Relation Age of Onset [place] (myocardial infarction) Father age 30s High cholesterol Father Liver failure Father ETOH cirrhosis [place] (myocardial infarction) Brother age 69 Cancer Sister [...] Female Social History Narrative [place] - unable to stay in [place] due to [place] of living [place]. 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 Questionable pneumonic process-Continue with IV antibiotics-Awaiting sputum and blood culture-Repeat chest x-ray-may repeat CT scan of the chest if pneumonia is not improved to evaluate for postobstructive rlnhanvgp-wnxbquhxdrfwi-Xqnrrctn with nebs as needed-O2 per protocol-Continue with gentle hydration-Repeat labs including CBC, BNP, and renal function in a.m.3. History of congestive heart failure;HFpEF-Echocardiogram reviewed-Cardiology consultation-Aggressive diuresis-Strict I's and O's-Repeat CXR-Daily weights-Education regarding diet and treatment of congestive heart failure4. CKD IV-Monitor renal function-Strict I's and O's-Repeat CXR-May get renal consult5. Qikg-qrqzsjmvdeb-untvaqtrcbgjcf6. Hypothyroidism-continue with SynthroidDVT prophylaxis: enoxaparinStress ulcer prophylaxis: [...] more given high risk of morbidity and mortality.[place] FEEDER was verified [place] [address]-8Wihrdnk and physical yszyGV8624-24-50R03:45:32History and physical noteTXT1.2.840.011593.1.13.104.2.7.2 .700820|[id number] for patient vdsj60216-5Xaspdkp and physical noteLNIM-INTERNAL MEDICINE STAFFIM-INTERNAL MEDICINE STAFFUT[address] La[id number] MRSXZAQFJXNZJSVQGEJILX0199-16-79V15: 45:321.2.840.174305.1.72.3.15|1.2.84 0.492794.1.13.104.2.7.2.727879_18671 92209 2022-09-17 4712-56-63U74:15:10Formatting of [facility] 22:15:10 this note is different from the original.[facility] Hospitalist Admission H&P Date of Service: 3CHIEF [...] 01/31/2020 Acute respiratory failure with hypoxia 11/07/2019 Cqmuc-lg-gpaklap kidney injury 11/05/2019 Adhesive capsulitis of left shoulder 04/22/2019 Anxiety Benign prostatic hyperplasia (BPH) with straining on urination 10/21/2020 Cervical spinal stenosis 10/07/2017 Added automatically from request for surgery [id number] Cervicalgia 07/03/2017 Chronic right shoulder pain 04/01/2017 [...] 10/07/2017 Added automatically from request for surgery [id number] Other insomnia 04/01/2017 Postlaminectomy syndrome 12/30/2017 Added automatically from request for surgery [id number] Range of motion deficit 07/03/2017 Right leg pain 11/05/2019 Right upper limb pain 07/03/2017 Sciatic pain, right Spondylosis 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 12/30/2017 Added automatically from request for surgery [id number] Steroid-induced hyperglycemia 02/12/2019 Type 2 diabetes mellitus [...] MD; Location: [facility] ALLERGIESNo Active AllergiesMEDICATIONSCurrent home medication list reviewed:Current [...] HISTORYFamily History Problem Relation Age of Onset [place] (myocardial infarction) Father age 30s High cholesterol Father Liver failure Father ETOH cirrhosis [place] (myocardial infarction) Brother age 69 Cancer Sister [...] Female Social History Narrative [place] - unable to stay [place] due to [place] of living [place]. 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, MACHINE INKER Social Determinants of Health Financial Resource Strain: [...] Exercise per Session: Not asked REVIEW OF RBPXLNH10 systems negative except per HPIPHYSICAL EXAMINATIONBP (!) [...] and generalized weakness8. Macrocytic anemia9. Compensatory metabolic nnymfpaoa83. Elevated hdsvvula01. History of tuberculosisPLAN:1. Continue with BiPAP support; [...] more given high risk of morbidity and mortality.[place] [facility] [place] [address]-2Xivgfav and physical vtzaRU4337-53-73R20:01:46History and physical noteTXT1.2.840.121750.1.13.104.2.7.2 .865698|[id number] for patient [address] Ci[id number] SITHFYWPOTJQPAYKGCQGPF1007-90-53O91: 01:461.2.840.653356.1.72.3.15|1.2.84 0.155457.1.13.104.2.7.2.727879_18520 79417
[2022-12-29 13:43] LABS: Specific Gravity 1.017 (1.005-1.030); Urine Bacteria None Seen /HPF (<20); Urine Bilirubin NEGATIVE (Negative); Urine Blood 1+ (Negative); Urine Clarity Extremely Turbid (Clear); Urine Color Light-Yellow (Yellow); Urine Glucose TRACE (Negative); Urine Mucus Slight /HPF (None Seen); Urine Protein 3+ (Negative); Urine Urobilinogen Normal (Normal)
[2022-12-29 13:51] LABS: Absolute Lymphocytes (CBC) 0.5 K/uL (0.7-4.9); Hematocrit 36.3 % (39.6-49.0); Lymphocytes % 5.1 % (15.3-44.8); MCV 100.2 fL (80-100); MPV 8.1 fL (7.6-11.3); Platelets 297 thou/uL (152-406); RBC Red Blood Cell Count 3.63 M/uL (4.33-5.43)
[2022-12-29 13:52] LABS: Barbiturates NEGATIVE (NEGATIVE); Benzodiazepines NEGATIVE (NEGATIVE); Cocaine NEGATIVE (NEGATIVE); METHAMPHETAM NEGATIVE (NEGATIVE); Methadone ND (NEGATIVE); Opiates NEGATIVE (NEGATIVE); Phencyclidine NEGATIVE (NEGATIVE); THC Cannibis POSITIVE (NEGATIVE)
--- NOTE | 2022-12-29 13:59 | RAD REPORT ---
EXAM DESCRIPTION: CT - Head Brain Wo Cont - 12/29/2022 1:52 pm CLINICAL HISTORY: CONFUSED COMPARISON: Head Brain Wo Cont dated 12/14/2022; Head Brain Wo Cont dated 08/01/2022 TECHNIQUE: All CT scans are performed using dose optimization technique as appropriate and may inclu de automated exposure control or mA/KV adjustment according to patient size. FINDINGS: No intracranial hemorrhage, hydrocephalus or extra-axial fluid collection.No areas of brai n edema or evidence of midline shift. The paranasal sinuses and mastoids are clear. The calvarium is intact. IMPRESSION: No acute intracranial abnormality.
[2022-12-29] MEDS ORDERED: NA CHLORIDE 0.9% 1,000 ML ONE ×2 (14:00→21:29)
[2022-12-29 14:02] LABS: Protime INR 0.85
[2022-12-29 14:08] LABS: ALT/SGPT 21 U/L (16-61); AST/SGOT 14 U/L (15-37); Albumin 3.2 g/dL (3.4-5.0); Alkaline Phosphatase 74 U/L (45-117); BUN Blood Urea Nitrogen 70 mg/dL (7-18); Bicarbonate 26 mEq/L (21-32); Bilirubin Direct 0.1 mg/dL (0-0.2); Bilirubin Indirect, Calculated 0.1 mg/dL (0.2-0.8); Bilirubin Total 0.2 mg/dL (0.2-1.0); Glomerular Filtration Rate 15 ml/min (=/>90); Glucose Level 155 mg/dL (74-106); Protein, Total 6.8 g/dL (6.4-8.2); Sodium Level 143 mEq/L (136-145)
[2022-12-29] MEDS ORDERED: ALBUTEROL 2.5 MG/3 ML NEB SOL ONE (15:16)
[2022-12-29] MEDS ORDERED: IPRATROPIUM BROM 0.5MG/2.5ML ONE (15:16)
[2022-12-29 16:12] LABS: Blood Morphology Comment NOTED (NOT SEEN); Platelet Estimate ADEQ; Poikilocytosis 2+; White Blood Cell Scan OK (OK)
--- NOTE | 2022-12-29 16:25 | RAD REPORT ---
EXAM DESCRIPTION: RAD - Chest Single View - 12/29/2022 4:12 pm CLINICAL HISTORY: wheezing, hypoxia COMPARISON: Chest Single View dated 12/18/2022; Chest Single View dated 12/14/2022; Chest Single Vie w dated 08/01/2022; Chest Single View dated 07/03/2022 FINDINGS: Lines: None. Lungs: Basilar opacities are present. Pleural: Small left effusion Cardiac: Similar cardiomegaly . Mediastinum: Within normal limits. Bones: No acute fractures. ACDF in the cervical spine . Other: None IMPRESSION: Small left pleural effusion and mild basilar opacities which could reflect atelectasis o r pneumonia.
--- NOTE | 2022-12-29 16:50 | ER ---
Nurse's Notes [facility] Name: Joe Singh Age: 72 yrs Sex: Male : 1950 Arrival Date: 12/29/2022 Time: 12:27 Bed 4 Private MD: Diagnosis: Acute kidney failure, unspecified;Acute respiratory failure with hypoxia Presentation: 12/29 12:40 Chief complaint: EMS states: Altered mental status. Roommate had called EMS because pt njLeonila was trying to get on his trike, pt answers some questions, states he took his medicines earlier today. 12:40 Coronavirus screen: Unable to obtain at this time. Ebola Screen: Unable to complete the [facility] Ebola screening because: The patient does not understand the questions being asked. Initial Sepsis Screen: Does the patient meet any 2 criteria? Altered Mental Status. No. Patient's initial sepsis screen is negative. Does the patient have a suspected source of infection? No. Patient's initial sepsis screen is negative. Risk Assessment: Do you want to hurt yourself or someone else? Unable to obtain. Onset of symptoms was December 29, 2022. 12:40 Method Of Arrival: EMS: [facility] 12:40 Acuity: JENNY 3 nj1 Historical: - Allergies: 12/30 09:41 No Known Allergies; ll1 - PMHx: 12/29 12:49 Atrial fibrillation; Chronic obstructive lung disease; Congestive heart failure; nj1 neuropathy; - Immunization history:: Adult Immunizations unknown. - Social history:: Smoking status: unknown. Screenin:45 [facility] ED Fall Risk Assessment (Adult) Score/Fall Risk Level 0 - 2 = Low Risk nj Oriented to surroundings, Maintained a safe environment, Hourly rounding (assess needs \T\ fall precautionary measures) done. 12:45 Abuse screen: Denies threats or abuse. Denies injuries from another. Nutritional nj1 screening: No deficits noted. Tuberculosis screening: No symptoms or risk factors identified. Assessment: 12:45 General: Appears in no apparent distress. comfortable, Behavior is calm, drowsy. ld1 12:45 Neuro: Level of Consciousness is obeys commands, confused, lethargic, Oriented to ld1 person, Speech is normal, Does not answer all questions. Neuro: Pupils are PERRLA. Cardiovascular: Patient's skin is warm and dry. Respiratory: Airway is patent Respiratory effort is even, unlabored, Respiratory pattern is tachypnea. 15:00 Reassessment: Patient and/or family updated on plan of care and expected duration. Pain ld1 level reassessed. Respiratory: Airway is patent Respiratory effort is Slightly labored Breath sounds are diminished bilaterally. Breath sounds with wheezes in left upper lobe and left lower lobe the patient has moderate shortness of breath. 15:00 Reassessment: Pt appears restless in bed, this RN assist patient with repositioning. ld1 See assessment. 15:13 Pain: Denies pain. ld1 15:30 Respiratory: Airway is patent Respiratory effort is even, unlabored, Breath sounds are nj1 diminished. 15:30 Reassessment: Patient appears in no apparent distress at this time. Repositioned. nj1 17:23 Reassessment: Patient appears in no apparent distress at this time. Pt nj1 resting/sleeping, awakens upon verbal command. 18:30 Reassessment: Patient appears in no apparent distress at this time. Pt resting/sleeping.nj1 19:00 General: Behavior is restless, Trying to get out of bed, requesting help. This RN along nj1 with other 2 assisting patient, pt answers yes when asked if wanted to urinate. Assisted to side of bed by 3 nurses. Pt states he is done but no urine produced. Pt assisted back in bed at this time. Tremors noted. Vital Signs: 12:40 BP 140 / 68; Pulse 78; Resp 20; Temp 98.3(O); Pulse Ox 98% on 2 lpm NC; Weight 99.79 ld1 kg; Height 6 ft. 0 in. ; 13:41 BP 104 / 94; Pulse 87; Resp 20; Pulse Ox 98% on 2 lpm NC; ld1 15:11 BP 119 / 59; Pulse 75; Resp 24; Pulse Ox 100% on Nebulizer tx; ld1 16:10 BP 139 / 74; Pulse 81; Resp 24; Pulse Ox 95% on 2 lpm NC; nj1 17:21 BP 139 / 70; Pulse 73; Resp 17; Pulse Ox 96% on 3 lpm NC; nj1 18:30 BP 123 / 93; Pulse 79; Resp 16; Pulse Ox 97% on 3 lpm NC; nj1 19:35 BP 139 / 68; Pulse 80; Resp 28; Pulse Ox 94% on 3 lpm NC; nj1 12:40 Body Mass Index 29.84 (99.79 kg, 182.88 cm) ld1 ED Course: 12:35 Patient arrived in ED. eb 12:45 Margarita Palomo RN is Primary Nurse. nj1 12:45 Patient has correct armband on for positive identification. Bed in low position. Call nj1 light in reach. Provided Education on:. 12:49 Triage completed. nj1 12:57 Rupinder Chris PA-C [facility]. sb4 12:57 Sherman Chen MD is Attending Physician. sb4 13:30 UAM Sent. ld1 13:30 Urine Drug Screen Sent. ld1 13:41 Inserted saline lock: 22 gauge in right forearm, using aseptic technique. Blood ld1 collected. 13:41 Straight cath inserted, using sterile technique, 16 Fr. Specimen obtained. Returned ld1 clear yellow urine. Patient tolerated well. 13:41 Arm band placed on. ld1 13:54 Head Brain Wo Cont CT In Process Unspecified. EDMS 15:00 Notified Nurse Practitioner and/or Physician Tassel Clipper of See respiratory assessment. nj1 Orders received. 15:30 Notified Nurse Practitioner and/or Physician Tassel Clipper of Response to duoneb treatment. nj1 16:14 Chest Single View XRAY In Process Unspecified. EDMS 16:49 Jb Sterling MD is Hospitalizing Provider. sb4 19:00 Report given to Angela GUERRERO. nj1 12/30 05:34 SARS RAPID Sent. kb3 07:47 No provider procedures requiring assistance completed. Patient admitted, IV remains in ll1 place. Administered Medications: 12/29 13:55 Drug: NS 0.9% IV 1000 ml IV at 1 bolus Per protocol; 1000 mL bolus Route: IV; Rate: 1 ld1 bolus; Site: right forearm; 15:00 Follow up: Response: No adverse reaction; IV Status: Completed infusion; IV Intake: nj1 1000ml 15:07 Drug: DuoNeb Nebulize (3:1) (2.5 mg - 0.5 mg) 3 ml Nebulizer once Route: Nebulizer; ld1 15:40 Follow up: Response: No adverse reaction nj1 12/30 04:54 Drug: Rocuronium IVP 100 mg IVP once Route: IVP; Site: right antecubital; kb3 07:48 Follow up: Response: No adverse reaction ll1 04:54 Drug: Etomidate IVP 20 mg IVP once Route: IVP; Site: right antecubital; kb3 07:48 Follow up: Response: No adverse reaction ll1 06:46 Drug: Propofol IV 5 mcg/kg/min IV at calculated rate See Administration Instructions; lg3 Standard concentration 1000 mg / 100 mL; Recommended max rate 50 mcg/kg/min; Titrate 2 mcg/kg/min every 5 minutes to achieve goal (see titration policy); Goal parameter RASS score 0 to -2 Route: IV; Rate: calculated rate; Site: right forearm; 07:47 Follow up: IV Status: Infusion continued upon admission ll1 Medication: 07:47 VIS not applicable for this client. ll1 Intake: 12/29 15:00 IV: 1000ml; Total: 1000ml. nj1 Outcome: 16:50 Decision to Hospitalize by Provider. sb4 12/30 07:47 Admitted to ER Hold. Please see [facility] for further documentation. ll1 Condition: stable Instructed on the need for admit, 10:26 Patient left the ED. ll1 Signatures: Dispatcher [employer] EDMS Nichole Malone Lacie RN RN lg3 Dominguez Lee RN RN ll1 Sarah Abdi RN RN ld1 Laura Martínez, RN RN kb3 Rupinder Chris PA-C PATao sb4 Margarita Palomo, YOLANDA RN nj1 Corrections: (The following items were deleted from the chart) 12/29 13:41 12:40 BP 140 / 68; Pulse 78bpm; Resp 20bpm; Pulse Ox 98%; Temp 98.3F Oral; 99.79 kg; ld1 Height 6 ft.; BMI: 29.8; nj1 15:11 15:07 Reassessment: ld1 ld1 15:13 15:11 Pulse 75bpm; Resp 24bpm; Pulse Ox 100% Nebulizer tx; ld1 ld1 15:16 15:13 General: Appears in no apparent distress. comfortable, Behavior is calm, drowsy, ld1 ld1 17:23 17:21 BP 139 / 70; Pulse 73bpm; Resp 17bpm; Pulse Ox 96% 3 lpm; nj1 nj1
--- NOTE | 2022-12-29 16:51 | EDPHYS ---
Physician Documentation [facility] Name: Joe Singh Age: 72 yrs Sex: Male : 1950 Arrival Date: 12/29/2022 Time: 12:27 Bed 4 Private MD: ED Physician Sherman Chen HPI: 12/29 18:38 This 72 yrs old Male presents to ER via EMS with complaints of AMS. sb4 18:38 patient's roommate called EMS for AMS. patient follows commands at this time but is sb4 oriented x 0. he states he took his medications as prescribed. he was recently admitted here for respiratory failure and supposedly discharged with home O2 but he states he does not have it. he is requiring 2L NC at this time. Historical: - Allergies: 12/30 09:41 No Known Allergies; ll1 - PMHx: 12/29 12:49 Atrial fibrillation; Chronic obstructive lung disease; Congestive heart failure; nj1 neuropathy; - Immunization history:: Adult Immunizations unknown. - Social history:: Smoking status: unknown. ROS: 12/30 08:10 Constitutional: Negative for fever, chills, and weight loss, sb4 Neuro: Positive for altered mental status, All other systems are negative, Exam: 08:11 Constitutional: This is a well developed, well nourished patient who is awake, alert, sb4 and in no acute distress. Head/Face: Normocephalic, atraumatic. Eyes: Extra-ocular motions intact. Periorbital areas with no swelling, redness, or edema. ENT: Mucous membranes moist. Cardiovascular: Regular rate and rhythm with a normal S1 and S2. Abdomen/GI: Soft, non-tender, no distension. Skin: Warm, dry with normal turgor. Normal color with no rashes, no lesions, and no evidence of cellulitis. MS/ Extremity: Pulses equal, no cyanosis. Neurovascular intact. Full, normal range of motion. 08:11 Respiratory: the patient does not display signs of respiratory distress, Respirations: normal, no acute changes, Breath sounds: decreased breath sounds, that are moderate, are heard in the left lower lobe, 08:11 Neuro: Orientation: Not oriented to person, place, time, Mentation: responsive to voice able to follow commands, Memory: is normal, appropriate for stated age, Vital Signs: 10/28 12:40 BP 140 / 68; Pulse 78; Resp 20; Temp 98.3(O); Pulse Ox 98% on 2 lpm NC; Weight 99.79 ld1 kg; Height 6 ft. 0 in. ; 13:41 BP 104 / 94; Pulse 87; Resp 20; Pulse Ox 98% on 2 lpm NC; ld1 15:11 BP 119 / 59; Pulse 75; Resp 24; Pulse Ox 100% on Nebulizer tx; ld1 16:10 BP 139 / 74; Pulse 81; Resp 24; Pulse Ox 95% on 2 lpm NC; nj1 17:21 BP 139 / 70; Pulse 73; Resp 17; Pulse Ox 96% on 3 lpm NC; nj1 18:30 BP 123 / 93; Pulse 79; Resp 16; Pulse Ox 97% on 3 lpm NC; nj1 19:35 BP 139 / 68; Pulse 80; Resp 28; Pulse Ox 94% on 3 lpm NC; nj1 12:40 Body Mass Index 29.84 (99.79 kg, 182.88 cm) ld1 MDM: 12:57 Patient medically screened. sb4 12/30 08:11 Differential Diagnosis: electrolyte abnormality, alcohol intoxication, hypoglycemia, sb4 overdose, pneumonia, UTI, volume depletion. Data reviewed: vital signs, nurses notes, EMS record, lab test result(s), EKG, radiologic studies, and as a result, I will admit patient. Consideration of Admission/Observation Patient was admitted/placed on observation. Management of patient was discussed with the following: Hospitalist: Dr. Fuentes. Counseling: I had a detailed discussion with the patient and/or guardian regarding the historical points, exam findings, and any diagnostic results supporting the discharge/admit diagnosis, the presence of at least one elevated blood pressure reading (>120/80) during this emergency department visit, lab results, radiology results, the need for further work-up and treatment in the hospital. 12/29 12:59 Order name: Acetaminophen; Complete Time: 14:16 sb4 12/29 12:59 Order name: Basic Metabolic Panel; Complete Time: 14:16 sb4 12/29 12:59 Order name: CBC with Diff; Complete Time: 16:13 sb4 12/29 12:59 Order name: ETOH Level; Complete Time: 14:16 sb4 12/29 12:59 Order name: Hepatic Function; Complete Time: 14:16 sb4 12/29 12:59 Order name: PT-INR; Complete Time: 14:16 sb4 12/29 12:59 Order name: Ptt, Activated; Complete Time: 14:16 sb4 12/29 12:59 Order name: Salicylate; Complete Time: 14:30 sb4 12/29 12:59 Order name: Urine Drug Screen; Complete Time: 13:57 sb4 12/29 12:59 Order name: UAM; Complete Time: 13:44 sb4 12/29 16:12 Order name: CBC Smear Scan; Complete Time: 16:13 EDMS 12/29 19:41 Order name: CBC with Automated Diff EDMS 12/29 19:41 Order name: CBC with Automated Diff; Complete Time: 08:05 EDMS 12/29 19:41 Order name: Comprehensive Metabolic Panel EDMS 12/29 19:41 Order name: Comprehensive Metabolic Panel; Complete Time: 08:05 EDMS 12/29 19:41 Order name: Phosphorus EDMS 12/29 19:41 Order name: Phosphorus; Complete Time: 08:05 EDMS 12/29 19:41 Order name: Troponin High Sensitivity EDMS 12/29 19:41 Order name: Troponin High Sensitivity; Complete Time: 04:11 EDMS 12/29 19:41 Order name: Troponin High Sensitivity; Complete Time: 08:05 EDMS 12/29 19:41 Order name: Troponin High Sensitivity EDMS 12/29 22:05 Order name: Creatine Phosphokinase; Complete Time: 04:11 EDMS 12/30 01:16 Order name: ABG Arterial Blood Gas; Complete Time: 04:11 EDMS 12/30 04:57 Order name: ABG rt 12/30 05:29 Order name: SARS RAPID rv1 12/30 05:33 Order name: ABG Arterial Blood Gas; Complete Time: 08:05 EDMS 12/30 05:36 Order name: ABG Arterial Blood Gas; Complete Time: 08:05 EDMS 12/30 05:41 Order name: Creatine Phosphokinase; Complete Time: 08:05 EDMS 12/30 05:49 Order name: SARS-COV-2 Antigen Rapid; Complete Time: 08:05 EDMS 12/30 07:15 Order name: PTT, Activated Partial Thromb; Complete Time: 08:05 EDMS 12/30 07:42 Order name: Glucose, Ancillary Testing; Complete Time: 08:05 EDMS 12/29 13:00 Order name: Head Brain Wo Cont CT; Complete Time: 14:16 sb4 12/29 14:47 Order name: Chest Single View XRAY; Complete Time: 16:29 sb4 12/30 04:57 Order name: Chest Single View XRAY rt 12/29 12:59 Order name: EKG; Complete Time: 13:00 sb4 12/29 12:59 Order name: EKG - Nurse/Tech; Complete Time: 14:29 sb4 12/29 12:59 Order name: IV Saline Lock; Complete Time: 13:30 sb4 12/29 12:59 Order name: Labs collected and sent; Complete Time: 13:40 sb4 12/29 12:59 Order name: Suicide Screening ([place]); Complete Time: 13:30 sb4 EC/28 18:24 Rate is 81 beats/min. Rhythm is regular, Normal Sinus Rhythm. WI interval is normal at sb4 194 msec. QRS interval is normal at 94 msec. QT interval is normal at [address] changes noted. Clinical impression: No evidence of ischemia. Interpreted by me. Reviewed by me. Administered Medications: 13:55 Drug: NS 0.9% IV 1000 ml IV at 1 bolus Per protocol; 1000 mL bolus Route: IV; Rate: 1 ld1 bolus; Site: right forearm; 15:00 Follow up: Response: No adverse reaction; IV Status: Completed infusion; IV Intake: nj1 1000ml 15:07 Drug: DuoNeb Nebulize (3:1) (2.5 mg - 0.5 mg) 3 ml Nebulizer once Route: Nebulizer; ld1 15:40 Follow up: Response: No adverse reaction nj1 12/30 04:54 Drug: Rocuronium IVP 100 mg IVP once Route: IVP; Site: right antecubital; kb3 07:48 Follow up: Response: No adverse reaction ll1 04:54 Drug: Etomidate IVP 20 mg IVP once Route: IVP; Site: right antecubital; kb3 07:48 Follow up: Response: No adverse reaction ll1 06:46 Drug: Propofol IV 5 mcg/kg/min IV at calculated rate See Administration Instructions; lg3 Standard concentration 1000 mg / 100 mL; Recommended max rate 50 mcg/kg/min; Titrate 2 mcg/kg/min every 5 minutes to achieve goal (see titration policy); Goal parameter RASS score 0 to -2 Route: IV; Rate: calculated rate; Site: right forearm; 07:47 Follow up: IV Status: Infusion continued upon admission ll1 Disposition Summary: 12/29/22 16:50 Hospitalization Ordered Notes: Hospitalization Status: Inpatient Admission sb4 Provider: Jb Sterling sb4 Condition: Fair sb4 Problem: new sb4 Symptoms: are unchanged sb4 Bed/Room Type: Standard sb4 Location: [facility] ER HOLD(12/29/22 20:03) kb3 Room Assignment: ERHOLD-(12/29/22 20:03) kb3 Diagnosis - Acute kidney failure, unspecified sb4 - Acute respiratory failure with hypoxia sb4 Forms: - Medication Reconciliation Form sb4 - SBAR form sb4 - Leadership Thank You Letter sb4 Addendum: 12/31/2022 11:02 I was immediately available for consultation during this patient's visit. I did not e c2 personally see the patient or guide the patient's care. Signatures: Dispatcher [employer] EDMS Kelsie Christianson RN RN lg3 Dominguez Lee RN RN ll1 Sarah Abdi RN RN ld1 Laura Martínez RN RN kb3 Rupinder Chris PA-C PA-C sb4 Boo Santiago MD MD rt Margarita Palomo, YOLANDA RN nj1 Sherman Chen MD MD ec2 Corrections: (The following items were deleted from the chart) 12/29 18:41 18:38 . sb4 sb4 20:03 16:50 Telemetry/MedSurg (Inpatient) sb4 kb3 20:03 16:50 sb4 kb3
[2022-12-29] MEDS ORDERED: ACETAMINOPHEN 325 MG TABLET PO PRN (19:35)
[2022-12-29] MEDS ORDERED: ONDANSETRON 4 MG/2 ML VIAL IV PRN (19:35)
--- NOTE | 2022-12-29 19:49 | P.HP ---
Certification for Inpatient Patient admitted to: Inpatient With expected LOS: >2 Midnights Practitioner: I am a practitioner with admitting privileges, knowledge of patient current condition, hospital course, and medical plan of care. Services: Services provided to patient in accordance with Admission requirements found in Title 42 Section 412.3 of the Code of Federal Regulations Patient History Date of Service: 12/30/22 Reason for admission: Altered mentation, acute kidney injury on chronic kidney disease. History of Present Illness: 72-year-old male patient who has multiple medical issues including chronic atrial fibrillation, hypertension, hypothyroidism, history of diabetes type 2, chronic kidney disease stage IV we will was admitted for episode of altered mentation. Because of concerns for altered mentation and infectious process labs and imaging studies were done with no significant finding on CT of the head. Labs did reveal elevated creatinine of 4, UDS positive for THC, UA concerning for possible infectious process and he was also multiple drug which would have caused other mentation. He was admitted for inpatient care. Allergies No Known Allergies Allergy (Verified 12/14/22 23:09) Home Medications: Amlodipine Besylate 10 mg PO DAILY 12/16/22 Arformoterol Tartrate 15 mcg IH BID 12/16/22 Baclofen 5 mg PO TID 12/16/22 Budesonide [Pulmicort*] 0.5 mg NEB BID 12/16/22 Bumetanide 0.5 mg PO DAILY 12/16/22 Ergocalciferol (Vitamin D2) [Vitamin D2] 50,000 unit PO EVERY 7TH DAY 12/16/22 Glipizide [Glipizide Xl] 2.5 mg PO BID 12/16/22 Hydrocodone 5/APAP 325 [[place] 5/325*] 5 mg PO Q6HR 12/16/22 Ipratropium/Albuterol Sulfate [Iprat-Albut 0.5-3(2.5) mg/3 ml] 3 ml IH Q6HR 12/16/22 Levothyroxine Sodium [Synthroid] 150 mcg PO DAILY 12/16/22 Magnesium Oxide [Mag 0X*] 400 mg PO DAILY 12/16/22 Mirtazapine 7.5 mg PO BEDTIME 12/16/22 Oxymetazoline HCl [Afrin] 15 ml IN QOD QID 12/16/22 Pravastatin [Pravachol*] 40 mg PO BEDTIME 12/16/22 Tamsulosin HCl 0.4 mg PO DAILY 12/16/22 predniSONE [Prednisone] 20 mg PO DAILY 12/16/22 Fluticasone/Umeclidin/Vilanter [Trelegy Ellipta 100-62.5-25] 1 each IH DAILY 30 Days #30 aero 12/17/22 acetaZOLAMIDE [Diamox*] 250 mg PO DAILY #30 tab 12/18/22 - Past Medical/Surgical History Diabetic: Yes -: CHF -: Diabetes Type 2 -: CKD -: Afib -: appendectomy -: Neck surgery 2013 -: Left knee surgery Psychosocial/ Personal History: Lives at home with family - Family History Father -: Heart disease, Liver disease Notes: Alcoholic Mother -: Heart disease, Hypertension, Diabetes Sister -: Heart disease Notes: NM Brother -: Heart disease Notes: NM, CHF older sister -: Heart disease, Kidney disease - Social History Alcohol use: No CD- Drugs: No Caffeine use: Yes Review of Systems is unable to be obtained Physical Examination - Physical Exam General: Delirious HEENT: Atraumatic, Normocephalic Neck: Supple Respiratory: Normal air movement Cardiovascular: Regular rate/rhythm, Normal S1 S2 Gastrointestinal: Soft and benign - Studies Laboratory Data (last 24 hrs) 12/29/22 12/29/22 12/29/22 13:37 13:37 13:37 WBC 9.60 Hgb 11.5 L Hct 36.3 L Plt Count 297 PT 9.4 L INR 0.85 APTT 33.8 Sodium 143 Potassium 5.0 BUN 70 H Creatinine 3.98 H Glucose 155 H Total Bilirubin 0.2 AST 14 L ALT 21 Alkaline Phosphatase 74 Assessment and Plan - Plan Toxic-metabolic encephalopathy: Patient has multiple drugs as confounders. He is on baclofen his UDS is positive for THC. Monitor mentation and continue supportive care. Empiric antibiotic to be started for suspected UTI episode. We will follow cultures taken for adjustment of antibiotic therapy if needed. NSTEMI: Troponin done in the ER is concerning for NSTEMI. EKG was reviewed. we will continue on heparin drip and put on telemetry. Cardiology is consulted for management of NSTEMI UTI: UA is concerning however there is no pyuria. We will obtain urine culture and start empiric antibiotic therapy of Rocephin. Hypothyroidism: We will obtain TSH and continue patient on levothyroxine DIA on CKD stage IV: Serum cr is elevated at 4. We will follow trend and dose medication for estimated glomerular filtration. We will avoid nephrotoxins. Respiratory failure with hypoxia and hypercapnia: we will have on supplemental oxygen and bipap for management. hx of CHF: we will monitor volume status closely. Prophylaxis: heparin drip started for NSTEMI will suffice for DVT prophylaxis. Code status: Full code. DIsposition: we will manage his multiple medical issues and he will be discharged once deemed medically stable. - Advance Directives Does patient have a Living Will: No Does patient have a Durable POA for Healthcare: No
[2022-12-29] MEDS ORDERED: NA CHLORIDE 0.9% 1,000 ML IV SCH ×2 (20:00→23:24)
[2022-12-29] MEDS ORDERED: LORazepam 2 MG/ML VIAL IV ONE (20:22)
[2022-12-29] MEDS ORDERED: LORazepam 2 MG/ML VIAL ONE (20:38)
[2022-12-29 21:23] LABS: Troponin High Sensitivity 903.6 pg/mL (<58.9)
[2022-12-29] MEDS ORDERED: HEPARIN/D5W 25,000 UNIT/500 ML BAG IV SCH (23:45)
[2022-12-30] MEDS ORDERED: FUROSEMIDE 20 MG/ 2ML VIAL IV ONE (00:20)
[2022-12-30] MEDS ORDERED: FUROSEMIDE 20 MG/ 2ML VIAL ONE (00:37)
[2022-12-30 00:55] VITALS: BMI 26.0
[2022-12-30] MEDS ORDERED: LORazepam 2 MG/ML VIAL IV ONE (00:57)
[2022-12-30] MEDS ORDERED: HEPARIN 5000 UNIT/ML 1 ML VIAL SQ SCH (01:00)
[2022-12-30] MEDS ORDERED: LORazepam 2 MG/ML VIAL ONE (01:13)
[2022-12-30 01:15] LABS: Arterial Blood Carboxyhemoglob 1.2 % (0-1.5); Blood Gas Oxyhemoglobin 90.6 % (94-97); Blood O2 Saturation 93.5 % (92-98.5)
[2022-12-30] MEDS ORDERED: HEPARIN/D5W 25,000 UNIT/500 ML BAG IV ONE (01:21)
[2022-12-30 02:34] VITALS: O2SAT 94
[2022-12-30] MEDS ORDERED: ETOMIDATE 20 MG/10 ML VIAL IV ONE (04:46)
[2022-12-30] MEDS ORDERED: ROCURONIUM 50 MG/5 ML VIAL IV ONE (04:47)
[2022-12-30 04:48] LABS: Absolute Lymphocytes (CBC) 1.1 K/uL (0.7-4.9); Hematocrit 33.2 % (39.6-49.0); Lymphocytes % 11.1 % (15.3-44.8); MCV 100.3 fL (80-100); MPV 8.6 fL (7.6-11.3); Platelets 262 thou/uL (152-406); RBC Red Blood Cell Count 3.31 M/uL (4.33-5.43)
[2022-12-30] MEDS ORDERED: propofoL 1,000 MG/100 ML VIAL IV ONE (04:48)
--- NOTE | 2022-12-30 04:50 | P.PN ---
Subjective Date of Service: 12/30/22 Chief Complaint: Altered mentation, acute kidney injury on chronic kidney disease. Patient with continued altered mental status, no significant improvement noted with serial ABGs. Decision made by the admitting physician to intubate the patient for respiratory failure. The room was prepped, patient was sedated and paralyzed with etomidate and rocuronium. [place] scope was used, a 7 5 tube was placed without difficulty on first attempt. No hypoxia during intubation. ET tube was secured at 26 cm at the teeth, good color change. X-ray ordered, sedation medicines to be given. Physical Examination - Vital Signs Blood Pressure: 131/64 Pulse: 78 Respirations: 18 Pulse Ox (%): 100 - Studies Laboratory Data (last 24 hrs) 12/29/22 12/29/22 12/29/22 13:37 13:37 13:37 WBC 9.60 Hgb 11.5 L Hct 36.3 L Plt Count 297 PT 9.4 L INR 0.85 APTT 33.8 Sodium 143 Potassium 5.0 BUN 70 H Creatinine 3.98 H Glucose 155 H Total Bilirubin 0.2 AST 14 L ALT 21 Alkaline Phosphatase 74
[2022-12-30] MEDS ORDERED: propofoL 1,000 MG/100 ML VIAL IV SCH (05:00)
[2022-12-30 05:03] LABS: Bilirubin Total 0.2 mg/dL (0.2-1.0); Phosphorus 7.2 mg/dL (2.5-4.9); Potassium 4.9 mEq/L (3.5-5.1); Protein, Total 6.2 g/dL (6.4-8.2)
[2022-12-30 05:32] LABS: Arterial Blood Carboxyhemoglob 1.1 % (0-1.5); Blood Gas Oxyhemoglobin 92.1 % (94-97)
[2022-12-30 05:34] LABS: Arterial Blood Carboxyhemoglob 1.1 % (0-1.5); Blood Gas Oxyhemoglobin 96.3 % (94-97); Blood O2 Saturation 99.3 % (92-98.5)
[2022-12-30 05:49] LABS: SARS-CoV-2 Antigen Rapid Res Negative (Negative)
[2022-12-30] MEDS ORDERED: FENTANYL CITR 100 MCG/2 ML IV PRN (06:21)
[2022-12-30] MEDS ORDERED: FENTANYL CITR 100 MCG/2 ML ONE (07:09)
[2022-12-30] MEDS ORDERED: FAMOTIDINE 20 MG/2 ML VIAL IV SCH ×2 (09:00)
[2022-12-30] MEDS ORDERED: CEFTRIAXONE 1,000 MG in NA CHLORIDE 0.9% 50 ML IVPB SCH (09:00)
[2022-12-30] MEDS ORDERED: FAMOTIDINE 20 MG/2 ML VIAL IV ONE (09:07)
--- NOTE | 2022-12-30 09:14 | P.DS ---
Admission Date: 12/29/22 Discharge Date: 12/30/22 Disposition: TRANSFER TO [facility] Comment: [facility] Reason for Admission: Altered mentation, acute kidney injury on chronic kidney disease. Consultations: 1. Pulmonology 2. Cardiology 3. Nephrology Procedures: - 12/30/2022 - Endotracheal Intubation Hospital Course: DIAGNOSES: # Acute on Chronic Hypercapnic Respiratory Failure possibly due to Community- Acquired Pneumonia # Possible Severe Sepsis suspect due to Community-Acquired Pneumonia # Acute Toxic Metabolic Encephalopathy likely due to above # Suspect Demand Ischemia (Type II Non-ST Segment Elevation Myocardial Infarction) # KDIGO Stage I Acute Kidney Injury on Chronic Kidney Disease Stage IV # Chronic Diastolic Congestive Heart Failure # Type II Diabetes Mellitus # Hypothyroidism # History of Atrial Fibrillation # Anemia of Chronic Kidney Disease HOSPITAL COURSE: Mr. Joe Singh is a 72 year old male with a past medical history significant for chronic kidney disease stage IV, chronic diastolic congestive heart failure, type 2 diabetes mellitus, atrial fibrillation, and hypothyroidism who was admitted to the [facility] on 12/29/2022 for altered mental status. He was admitted to the Medicine service. Upon further evaluation, he was found to meet SIRS criteria with tachypnea and tachycardia. His EKG was without STEMI criteria. His troponin trend was 903.6 -> 984.1. His chest x-ray revealed, "small left pleural effusion and mild basilar opacities which could reflect atelectasis or pneumonia." His CT head revealed, "no acute intracranial abnormality." He was started on IV antibiotics and a heparin drip. Shortly after admission, his mentation continued to worsen. An ABG was obtained, which revealed a pH of 7.09 and a PCO2 of 76.2. BiPAP was tried initially, but he eventually required endotracheal intubation. Our facility is currently at capacity and we do not have ICU availability. Transfer was initiated for an ICU bed. Doc-to-doc was completed with Dr. Diamond ([facility] [employer]), who has generously accepted him for transfer. On 12/30/2022, he was seen on morning rounds and deemed medically stable for transfer Today, I personally spent 40 minutes on his case, of which greater than 50% of the time was spent in patient education, counseling, and coordination of care as described above. Vital Signs/Physical Exam: Temp Pulse Resp BP Pulse Ox 97.7 F 55 20 161/75 H 100 12/30/22 07:45 12/30/22 07:45 12/30/22 07:45 12/30/22 07:45 12/30/22 07:45 General: In no apparent distress, Other (intubated, sedated) HEENT: Atraumatic, Sclerae nonicteric Neck: JVD not distended Respiratory: Diminished Cardiovascular: Regular rate/rhythm, No murmurs, Edema (trace BLE) Gastrointestinal: Hypoactive, Non-distended, No tenderness Musculoskeletal: No clubbing Integumentary: No rashes Neurological: Other (sedated) Laboratory Data at Discharge: WBC 9.50 thou/uL (4.3-10.9) 12/30/22 03:39 Hgb 10.8 g/dL (13.6-17.9) L 12/30/22 03:39 Hct 33.2 % (39.6-49.0) L 12/30/22 03:39 Plt Count 262 thou/uL (152-406) 12/30/22 03:39 PT 9.4 SECONDS (9.5-12.5) L 12/29/22 13:37 INR 0.85 12/29/22 13:37 APTT 50.0 SECONDS (24.3-36.9) H 12/30/22 06:47 Sodium 145 mEq/L (136-145) 12/30/22 03:39 Potassium 4.9 mEq/L (3.5-5.1) 12/30/22 03:39 BUN 75 mg/dL (7-18) H 12/30/22 03:39 Creatinine 4.10 mg/dL (0.70-1.30) H 12/30/22 03:39 Glucose 138 mg/dL (74-106) H 12/30/22 03:39 Phosphorus 7.2 mg/dL (2.5-4.9) H 12/30/22 03:39 Total Bilirubin 0.2 mg/dL (0.2-1.0) 12/30/22 03:39 AST 15 U/L (15-37) 12/30/22 03:39 ALT 20 U/L (16-61) 12/30/22 03:39 Alkaline Phosphatase 66 U/L (45-117) 12/30/22 03:39 Home Medications: Amlodipine Besylate 10 mg PO DAILY 12/16/22 Arformoterol Tartrate 15 mcg IH BID 12/16/22 Baclofen 5 mg PO TID 12/16/22 Budesonide [Pulmicort*] 0.5 mg NEB BID 12/16/22 Bumetanide 0.5 mg PO DAILY 12/16/22 Ergocalciferol (Vitamin D2) [Vitamin D2] 50,000 unit PO EVERY 7TH DAY 12/16/22 Glipizide [Glipizide Xl] 2.5 mg PO BID 12/16/22 Hydrocodone 5/APAP 325 [Alberta 5/325*] 5 mg PO Q6HR 12/16/22 Ipratropium/Albuterol Sulfate [Iprat-Albut 0.5-3(2.5) mg/3 ml] 3 ml IH Q6HR 12/16/22 Levothyroxine Sodium [Synthroid] 150 mcg PO DAILY 12/16/22 Magnesium Oxide [Mag 0X*] 400 mg PO DAILY 12/16/22 Mirtazapine 7.5 mg PO BEDTIME 12/16/22 Oxymetazoline HCl [Afrin] 15 ml IN QOD QID 12/16/22 Pravastatin [Pravachol*] 40 mg PO BEDTIME 12/16/22 Tamsulosin HCl 0.4 mg PO DAILY 12/16/22 predniSONE [Prednisone] 20 mg PO DAILY 12/16/22 Fluticasone/Umeclidin/Vilanter [Trelegy Ellipta 100-62.5-25] 1 each IH DAILY 30 Days #30 aero 12/17/22 acetaZOLAMIDE [Diamox*] 250 mg PO DAILY #30 tab 12/18/22 Physician Discharge Instructions: - Continue care at [facility] Diet: NPO Activity: Bedrest Followup: NONE,NONE [Primary Care Provider] - Time spent managing pt's care (in minutes): 40
[2022-12-30] MEDS ORDERED: NA CHLORIDE 0.9% 50 ML ONE (09:45)
[2022-12-30] MEDS ORDERED: CEFTRIAXONE 1000 MG/VIAL ONE (09:45)
[2022-12-30 10:23] VITALS: BP 179/90; TEMP 97.8
--- NOTE | 2022-12-31 11:54 | RAD REPORT ---
EXAM DESCRIPTION: RAD - Chest Single View - 12/30/2022 5:03 am CLINICAL HISTORY: The patient is 72 years old and is Male; intubation [facility] MAIN TECHNIQUE: Frontal view of the chest. COMPARISON: No relevant prior studies available. FINDINGS: LUNGS: Prominence of the bilateral hilar vasculature with no discrete focal consolidatio n. PLEURAL SPACE: No appreciable pleural effusion. No pneumothorax. HEART: See below. MEDIASTINUM: Prominence of the cardiomediastinal silhouette, likely exaggerated secondary to portab le technique, lordotic positioning, and patient body habitus. BONES/JOINTS: Unremarkable. VASCULATURE: Calcified atherosclerosis of the thoracic aorta. TUBES, LINES AND DEVICES: The endotracheal tube (ETT) is in satisfactory position with tip 5 cm abo ve the german. IMPRESSION: 1. The endotracheal tube (ETT) is in satisfactory position with tip 5 cm above the car koko. 2. No acute findings in the chest. Electronically signed by: Oleksandr Childers MD 12/30/2022 5:26 AM CDT Due to temporary technical issues with the PACS/Fluency reporting system, reports are being signed by the in house radiologists without review as a courtesy to insure prompt reporting. The interpreting radiologist is fully responsible for the content of the report.
--- NOTE | 2023-01-01 07:59 | EKG ---
Test Date: 2022-12-29 Test Time: 14:07:18 Microfilm Equipment Inspector: JAGJIT MEASUREMENT RESULTS: Intervals: Rate: 81 OR: 194 QRSD: 94 QT: 366 QTc: 425 [place]: P: 78 OR: 194 QRS: 84 T: 73 INTERPRETIVE STATEMENTS: Normal sinus rhythm Anteroseptal infarct, age undetermined Abnormal ECG Compared to ECG 12/14/2022 16:19:51 Myocardial infarct finding now present Atrial premature complex(es) no longer present Incomplete right bundle-branch block no longer present Electronically Signed On 01-01-23 07:52:48 CDT by Khang Guerrier
== END 2022-12-30 10:20 | disposition short-term general hospital (02) | DRG 871 ==
LOC: ER 12:27 → ERHOLD 19:36
PROVIDERS: ADMIT Internal Medicine Nephrology; ATTEND Internal Medicine
PROC: 5A1935Z Respiratory Ventilation, Less than 24 Consecutive Hours (ICD-10-PCS; principal; 2022-12-29)
PROC: 0BH17EZ Insertion of Endotracheal Airway into Trachea, Via Natural or Artificial Opening (ICD-10-PCS; 2022-12-29)
PROC: 5A09357 Assistance with Respiratory Ventilation, Less than 24 Consecutive Hours, Continuous Positive Airway Pressure (ICD-10-PCS; 2022-12-29)
DX: A41.9 Sepsis, unspecified organism (principal); G92.8 Other toxic encephalopathy; J96.01 Acute respiratory failure with hypoxia; J18.9 Pneumonia, unspecified organism; I21.A1 Myocardial infarction type 2; J96.22 Acute and chronic respiratory failure with hypercapnia; N17.9 Acute kidney failure, unspecified; I48.20 Chronic atrial fibrillation, unspecified; N18.4 Chronic kidney disease, stage 4 (severe); J44.0 Chronic obstructive pulmonary disease with (acute) lower respiratory infection; I50.32 Chronic diastolic (congestive) heart failure; I13.0 Hypertensive heart and chronic kidney disease with heart failure and stage 1 through stage 4 chronic kidney disease, or unspecified chronic kidney disease; R65.20 Severe sepsis without septic shock; E11.22 Type 2 diabetes mellitus with diabetic chronic kidney disease; D63.1 Anemia in chronic kidney disease; J44.9 Chronic obstructive pulmonary disease, unspecified; E03.9 Hypothyroidism, unspecified; Z79.84 Long term (current) use of oral hypoglycemic drugs; Z90.49 Acquired absence of other specified parts of digestive tract; Z79.52 Long term (current) use of systemic steroids; Z79.899 Other long term (current) drug therapy; Z79.890 Hormone replacement therapy; Z20.822 Contact with and (suspected) exposure to COVID-19
CPT/HCPCS: 36415; 51702; 70450; 71045; 80048; 80053; 80076; 80143; 80179; 80307; 81001; 82077; 82550; 82805; 82947; 84100; 84484; 85025; 85610; 85730; 87040; 87086; 87088; 87811; 93005; 94002; 94640; 94660; 96361; 96365; 96375; 99285; J0696; J1644; J1940; J2704; J3010; J7030; J7613; J7644

== ENCOUNTER 2023-02-03 14:45 | Inpatient (IN) | payer OTHER ==
[2023-02-03] MEDS ORDERED: NA CHLORIDE 0.9% 1,000 ML ONE (15:30)
[2023-02-03] MEDS ORDERED: CEFTRIAXONE 1000 MG/VIAL ONE (15:30)
--- OUTSIDE RECORDS SUMMARY | 2023-02-03 15:58 | XMS REPORT | Continuity of Care Document ---
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 2{puff} Inhale 2 Univers 90 9-08 Puffs ity of mcg/actuati 00:00: every 6 [place] on inhaler 00 (six) Medical hours as Branch needed for Wheezing or Shortness of Breath. albuterol Yes [id number] 2{puff} Inhale 2 Univers 90 9-08 Puffs ity of mcg/actuati 00:00: every 6 [place] on inhaler 00 (six) Medical hours as Branch needed for Wheezing or Shortness of Breath. albuterol Yes [id number] 2{puff} Inhale 2 Univers 90 9-08 Puffs ity of mcg/actuati 00:00: every 6 [place] on inhaler 00 (six) Medical hours as Branch needed for Wheezing or Shortness of Breath. albuterol Yes [id number] 2{puff} Inhale 2 Univers 90 9-08 Puffs ity of mcg/actuati 00:00: every 6 [place] on inhaler 00 (six) Medical hours as Branch needed for Wheezing or Shortness of Breath. albuterol Yes [id number] 2{puff} Inhale 2 [facility] 90 9-08 Puffs ity of mcg/actuati 00:00: every 6 [place] on inhaler 00 (six) Medical hours as Branch needed for Wheezing or Shortness of Breath. albuterol Yes [id number] 2{puff} Inhale 2 [facility] 90 9-08 Puffs ity of mcg/actuati 00:00: every 6 [place] on inhaler 00 (six) Medical hours as Branch needed for Wheezing or Shortness of Breath. albuterol Yes [id number] 2{puff} Inhale 2 Univers 90 9-08 Puffs ity of mcg/actuati 00:00: every 6 [place] on inhaler 00 (six) Medical hours as Branch needed for Wheezing or Shortness of Breath. albuterol Yes [id number] 2{puff} Inhale 2 Univers 90 9-08 Puffs ity of mcg/actuati 00:00: every 6 [place] on inhaler 00 (six) Medical hours as Branch needed for Wheezing or Shortness of Breath. albuterol Yes [id number] 2{puff} Inhale 2 [facility] 90 9-08 Puffs ity of mcg/actuati 00:00: every 6 [place] on inhaler 00 (six) Medical hours as Branch needed for Wheezing or Shortness of Breath. albuterol Yes [id number] 2{puff} Inhale 2 [facility] 90 9-08 Puffs ity of mcg/actuati 00:00: every 6 [place] on inhaler 00 (six) Medical hours as Branch needed for Wheezing or Shortness of Breath. albuterol Yes [id number] 2{puff} Inhale 2 Univers 90 9-08 Puffs ity of mcg/actuati 00:00: every 6 [place] on inhaler 00 (six) Medical hours as Branch needed for Wheezing or Shortness of Breath. albuterol Yes [id number] 2{puff} Inhale 2 Univers 90 9-08 Puffs ity of mcg/actuati 00:00: every 6 [place] on inhaler 00 (six) Medical hours as Branch needed for Wheezing or Shortness of Breath. albuterol Yes [id number] 2{puff} Inhale 2 Univers 90 9-08 Puffs ity of mcg/actuati 00:00: every 6 [place] on inhaler 00 (six) Medical hours as Branch needed for Wheezing or Shortness of Breath. albuterol Yes [id number] 2{puff} Inhale 2 Univers 90 9-08 Puffs ity of mcg/actuati 00:00: every 6 [place] on inhaler 00 (six) Medical hours as Branch needed for Wheezing or Shortness of Breath. albuterol Yes [id number] 2{puff} Inhale 2 Univers 90 9-08 Puffs ity of mcg/actuati 00:00: every 6 [place] on inhaler 00 (six) Medical hours as Branch needed for Wheezing or Shortness of Breath. albuterol Yes [id number] 2{puff} Inhale 2 Univers 90 9-08 Puffs ity of mcg/actuati 00:00: every 6 [place] on inhaler 00 (six) Medical hours as Branch needed for Wheezing or Shortness of Breath. albuterol Yes [id number] 2{puff} Inhale 2 Univers 90 9-08 Puffs ity of mcg/actuati 00:00: every 6 [place] on inhaler 00 (six) Medical hours as Branch needed for Wheezing or Shortness of Breath. albuterol Yes [id number] 2{puff} Inhale 2 Univers 90 9-08 Puffs ity of mcg/actuati 00:00: every 6 [place] on inhaler 00 (six) Medical hours as Branch needed for Wheezing or Shortness of Breath. albuterol Yes [id number] 2{puff} Inhale 2 Univers 90 9-08 Puffs ity of mcg/actuati 00:00: every 6 [place] on inhaler 00 (six) Medical hours as Branch needed for Wheezing or Shortness of Breath. albuterol Yes [id number] 2{puff} Inhale 2 Univers 90 9-08 Puffs ity of mcg/actuati 00:00: every 6 [place] on inhaler 00 (six) Medical hours as Branch needed for Wheezing or Shortness of Breath. albuterol Yes [id number] 2{puff} Inhale 2 Univers 90 9-08 Puffs ity of mcg/actuati 00:00: every 6 [place] on inhaler 00 (six) Medical hours as Branch needed for Wheezing or Shortness of Breath. albuterol Yes [id number] 2{puff} Inhale 2 Univers 90 9-08 Puffs ity of mcg/actuati 00:00: every 6 [place] on inhaler 00 (six) Medical hours as Branch needed for Wheezing or Shortness of Breath. albuterol Yes [id number] 2{puff} Inhale 2 Univers 90 9-08 Puffs ity of mcg/actuati 00:00: every 6 [place] on inhaler 00 (six) Medical hours as Branch needed for Wheezing or Shortness of Breath. albuterol Yes [id number] 2{puff} Inhale 2 Univers 90 9-08 Puffs ity of mcg/actuati 00:00: every 6 [place] on inhaler 00 (six) Medical hours as Branch needed for Wheezing or Shortness of Breath. albuterol Yes [id number] 2{puff} Inhale 2 Univers 90 9-08 Puffs ity of mcg/actuati 00:00: every 6 [place] on inhaler 00 (six) Medical hours as Branch needed for Wheezing or Shortness of Breath. albuterol Yes [id number] 2{puff} Inhale 2 Univers 90 9-08 Puffs ity of mcg/actuati 00:00: every 6 [place] on inhaler 00 (six) Medical hours as Branch needed for Wheezing or Shortness of Breath. albuterol Yes [id number] 2{puff} Inhale 2 Univers 90 9-08 Puffs ity of mcg/actuati 00:00: every 6 [place] on inhaler 00 (six) Medical hours as Branch needed for Wheezing or Shortness of Breath. albuterol Yes [id number] 2{puff} Inhale 2 Univers 90 9-08 Puffs ity of mcg/actuati 00:00: every 6 [place] on inhaler 00 (six) Medical hours as Branch needed for Wheezing or Shortness of Breath. albuterol Yes [id number] 2{puff} Inhale 2 Univers 90 9-08 Puffs ity of mcg/actuati 00:00: every 6 [place] on inhaler 00 (six) Medical hours as Branch needed for Wheezing or Shortness of Breath. albuterol Yes [id number] 2{puff} Inhale 2 Univers 90 9-08 Puffs ity of mcg/actuati 00:00: every 6 [place] on inhaler 00 (six) Medical hours as Branch needed for Wheezing or Shortness of Breath. albuterol Yes [id number] 2{puff} Inhale 2 Univers 90 9-08 Puffs ity of mcg/actuati 00:00: every 6 [place] on inhaler 00 (six) Medical hours as Branch needed for Wheezing or Shortness of Breath. albuterol Yes [id number] 2{puff} Inhale 2 Univers 90 9-08 Puffs ity of mcg/actuati 00:00: every 6 [place] on inhaler 00 (six) Medical hours as Branch needed for Wheezing or Shortness of Breath. albuterol Yes [id number] 2{puff} Inhale 2 Univers 90 9-08 Puffs ity of mcg/actuati 00:00: every 6 [place] on inhaler 00 (six) Medical hours as Branch needed for Wheezing or Shortness of Breath. albuterol Yes [id number] 2{puff} Inhale 2 Univers 90 9-08 Puffs ity of mcg/actuati 00:00: every 6 [place] on inhaler 00 (six) Medical hours as Branch needed for Wheezing or Shortness of Breath. albuterol Yes [id number] 2{puff} Inhale 2 Univers 90 9-08 Puffs ity of mcg/actuati 00:00: every 6 [place] on inhaler 00 (six) Medical hours as Branch needed for Wheezing or Shortness of Breath. albuterol Yes [id number] 2{puff} Inhale 2 Univers 90 9-08 Puffs ity of mcg/actuati 00:00: every 6 [place] on inhaler 00 (six) Medical hours as Branch needed for Wheezing or Shortness of Breath. albuterol Yes [id number] 2{puff} Inhale 2 Univers 90 9-08 Puffs ity of mcg/actuati 00:00: every 6 [place] on inhaler 00 (six) Medical hours as Branch needed for Wheezing or Shortness of Breath. albuterol Yes [id number] 2{puff} Inhale 2 Univers 90 9-08 Puffs ity of mcg/actuati 00:00: every 6 [place] on inhaler 00 (six) Medical hours as Branch needed for Wheezing or Shortness of Breath. albuterol Yes [id number] 2{puff} Inhale 2 Univers 90 9-08 Puffs ity of mcg/actuati 00:00: every 6 [place] on inhaler 00 (six) Medical hours as Branch needed for Wheezing or Shortness of Breath. albuterol Yes [id number] 2{puff} Inhale 2 Univers 90 9-08 Puffs ity of mcg/actuati 00:00: every 6 [place] on inhaler 00 (six) Medical hours as Branch needed for Wheezing or Shortness of Breath. albuterol Yes [id number] 2{puff} Inhale 2 Univers 90 9-08 Puffs ity of mcg/actuati 00:00: every 6 [place] on inhaler 00 (six) Medical hours as Branch needed for Wheezing or Shortness of Breath. albuterol Yes [id number] 2{puff} Inhale 2 Univers 90 9-08 Puffs ity of mcg/actuati 00:00: every 6 [place] on inhaler 00 (six) Medical hours as Branch needed for Wheezing or Shortness of Breath. albuterol Yes [id number] 2{puff} Inhale 2 Univers 90 9-08 Puffs ity of mcg/actuati 00:00: every 6 [place] on inhaler 00 (six) Medical hours as Branch needed for Wheezing or Shortness of Breath. albuterol Yes [id number] 2{puff} Inhale 2 Univers 90 9-08 Puffs ity of mcg/actuati 00:00: every 6 [place] on inhaler 00 (six) Medical hours as Branch needed for Wheezing or Shortness of Breath. albuterol Yes [id number] 2{puff} Inhale 2 Univers 90 9-08 Puffs ity of mcg/actuati 00:00: every 6 [place] on inhaler 00 (six) Medical hours as Branch needed for Wheezing or Shortness of Breath. albuterol Yes [id number] 2{puff} Inhale 2 Univers 90 9-08 Puffs ity of mcg/actuati 00:00: every 6 [place] on inhaler 00 (six) Medical hours as Branch needed for Wheezing or Shortness of Breath. albuterol Yes [id number] 2{puff} Inhale 2 Univers 90 9-08 Puffs ity of mcg/actuati 00:00: every 6 [place] on inhaler 00 (six) Medical hours as Branch needed for Wheezing or Shortness of Breath. albuterol Yes [id number] 2{puff} Inhale 2 Univers 90 9-08 Puffs ity of mcg/actuati 00:00: every 6 [place] on inhaler 00 (six) Medical hours as Branch needed for Wheezing or Shortness of Breath. albuterol Yes [id number] 2{puff} Inhale 2 Univers 90 9-08 Puffs ity of mcg/actuati 00:00: every 6 [place] on inhaler 00 (six) Medical hours as Branch needed for Wheezing or Shortness of Breath. albuterol Yes [id number] 2{puff} Inhale 2 Univers 90 9-08 Puffs ity of mcg/actuati 00:00: every 6 [place] on inhaler 00 (six) Medical hours as Branch needed for Wheezing or Shortness of Breath. albuterol Yes [id number] 2{puff} Inhale 2 Univers 90 9-08 Puffs ity of mcg/actuati 00:00: every 6 [place] on inhaler 00 (six) Medical hours as Branch needed for Wheezing or Shortness of Breath. albuterol Yes [id number] 2{puff} Inhale 2 Univers 90 9-08 Puffs ity of mcg/actuati 00:00: every 6 [place] on inhaler 00 (six) Medical hours as Branch needed for Wheezing or Shortness of Breath. albuterol Yes [id number] 2{puff} Inhale 2 Univers 90 9-08 Puffs ity of mcg/actuati 00:00: every 6 [place] on inhaler 00 (six) Medical hours as Branch needed for Wheezing or Shortness of Breath. albuterol Yes [id number] 2{puff} Inhale 2 Univers 90 9-08 Puffs ity of mcg/actuati 00:00: every 6 [place] on inhaler 00 (six) Medical hours as Branch needed for Wheezing or Shortness of Breath. oxymetazoli 2022-0 Yes 1{puff} Use 1 Puff [...] Indication s: acute pain predniSONE 2023-0 2023- No [id number] 20mg Take 1 Univers 20 mg 8-23 10-28 tablet by ity of tablet 00:00: 04:59 mouth in [place] 00 :00 the Medical morning Branch for 5 days. predniSONE 2023-0 2023- No [id number] 20mg Take 1 Univers 20 mg 8-22 -28 tablet by ity of tablet 00:00: 04:59 mouth in [place] 00 :00 the Medical morning Branch for 5 days. bumetanide 3-0 Yes .5mg 0.5 mg, Univ ers (BUMEX) 8- Oral, ity of tablet 0.5 22:00: QAM+PM, [place] mg 00 First dose Medical (after Branch last modificati on) on Sat10/22/22 at 1700, Until Discontinu ed, Routine fluticasone 3-0 Yes 1{spray 1 [place], Univers propionate 10-22 } Nasal, ity of 50 14:00: DAILY, [place] mcg/actuati 00 First dose Me dical on nasal on [facility] spray 1 10/22/22 at [place] 0900, Until Discontinu ed, Routine tamsulosin 2022-0 Yes .4mg 0.4 mg, Univ ers (FLOMAX) 10-22 Oral, ity of capsule 0.4 14:00: DAILY, [place] mg 00 First dose Medical on [facility] 10/22/22 at 0900, Until Discontinu ed, Routine spironolact 2022-0 Yes 12.5mg 12.5 mg, Univers one 10-22 Oral, ity of (ALDACTONE) 14:00: DAILY, [place] tablet 12.5 00 First dose Me dical mg on [facility] 10/22/22 at 0900, Until Discontinu ed, Routine acetaZOLAMI 2022-0 Yes 250mg 250 mg, Un renetta DE (DIAMOX) 10-22 Oral, ity of tablet 250 14:00: DAILY, [place] mg 00 First dose Medical on [facility] 10/22/22 at 0900, Until Discontinu ed, Routine bumetanide 2022-0 2023- No .5mg 0.5 mg, Uni vers (BUMEX) 10-22 Oral, ity of tablet 0.5 14:00: 18:00 DAILY, [place] mg 00 :48 First dose Medical on [facility] 10/22/22 at 0900, Until Discontinu ed, Routine levothyroxi 2022-0 Yes 150ug 150 mcg, U nivers ne 10-22 Oral, ity of (SYNTHROID) 11:00: QAM-0600, [place] tablet 150 00 First dose Med ical mcg on [facility] 10/22/22 at 0600, Until Discontinu ed, Routine pravastatin 2022-0 Yes 40mg 40 mg, Univ ers (PRAVACHOL) 10-22 Oral, QHS, it y of tablet 40 02:00: First dose [place] mg 00 on [facility] 10/21/22 at Branch 2100, Until Discontinu ed, Routine traZODone 2022-0 Yes 50mg 50 mg, Univer s (DESYREL) 10-22 Oral, QHS, ity of tablet 50 02:00: First dose [place] mg 00 on [facility] 10/21/22 at Branch 2100, Until Discontinu ed, Routine mirtazapine Yes 7.5mg 7.5 mg, Un renetta (REMERON) 8 Oral, QHS, ity of tablet 7.5 02:00: First dose [place] mg 00 on [facility] 10/21/22 at Branch 2100, Until Discontinu ed, Routine NIFEdipine 0 Yes 30mg 30 mg, Unive rs ER tablet 10-22 Oral, ity of 30 mg 01:00: DAILY, [place] 00 First dose Medical on [facility] 10/21/22 at 2000, Until Discontinu ed, Routine budesonide- 0 Yes 2{puff} 2 Puff, Univers formoteroL 10-22 Inhalation ity of (SYMBICORT) 01:00: , BID, [place] 160-4.5 00 First dose Medica l mcg/actuati on [facility] on inhaler 10/21/22 at 2 Puff 1999, Until Discontinu ed, Routine cloNIDine Yes .2mg 0.2 mg, Unive rs (CATAPRES) 10-22 Oral, ity of tablet 0.2 00:58: TIDPRN, [place] mg 42 Starting Medical on [facility] 10/21/22 at 1958, Until Discontinu ed, Routine, IF bp IS >150/90 predniSONE 2022-0 2022- No 20mg 20 mg, Univ ers (DELTASONE) 10-21 Oral, ity of tablet 20 19:30: 13:53 DAILY, 3 [place] mg 00 :00 doses, Medical First dose Branch on [place] 10/21/22 at 1430, Last dose on Sat10/23/22 at 0900, Routine Sliding 2022-0 Yes Subcutaneo Univ ers Scale - us, TID ity of Insulin - 17:00: MEALS+HS, [place] as Lispro 00 First dose Medical (HumaLOG) on [facility] 10/21/22 at 1200, Until Discontinu ed, Routine dextrose 0 Yes 250mL 250 mL, IV Un renetta 10% (D10W) 10-21 Infusion, ity of bolus 16:31: PRN - SEE [place] infusion 25 INSTRUCTIO Medic al 250 mL NS, Branch Administer over 60 Minutes, Other, If blood glucose is < or = 70 mg/dL and patient is unable to swallow or has mental status changes, Starting on [place] 10/21/22 at 1131
If blood glucose is [...] glucose is < 80 mg/dL, repeat.
glucagon 2022-0 Yes 1mg 1 mg, Univers (GLUCAGEN 8-20 Intramuscu ity of DIAGNOSTIC 16:31: lar, PRN, [place] KIT) 23 Starting Medical injection 1 on [place] Branch mg 10/21/22 at 1131, Until Discontinu ed, MARTHA, Blood Glucose < or = 70 mg/dL and patient is NPO, unable to swallow or has mental changes. HYDROcodone 2022-0 Yes 1{tbl} 1 tablet, Univers -acetaminop 8-20 Oral, ity of hen (NORCO) 00:45: Q6HPRN, [place] as 10-325 mg 10 Starting Medica l tablet [facility] tablet 10/20/22 at 1945, Until Discontinu ed, Routine, Pain (scale 7-10) traMADoL 2022-0 Yes 50mg 50 mg, Univers (ULTRAM) 8- Oral, ity of tablet 50 20:55: Q6HPRN, [place] mg 29 Starting Medical on [facility] 10/20/22 at 1555, Until Discontinu ed, Routine, Pain (scale 4-6) NaCl 0.9% 2022-0 2022- No 500mL at 999 Univ ers (NS) bolus 10-20 08-19 mL/hr, 500 it y of infusion 20:15: 20:45 mL, IV [place] 500 mL 00 :00 [place]gyback, Medical ONCE, 1 Branch dose, On Sat10/20/22 at 1515, STAT cefTRIAXone 2022- No 1000mg 1,000 mg, Univers (ROCEPHIN) 10-20 IV ity of 1,000 mg in 05:30: 05:29 [place], [place] NaCl 0.9% 00 :00 Q24H ABX, Medic al (NS) 100 mL 7 doses, [facility] MINI-BAG First dose on Sat10/20/22 at 0030, Last dose on Sat10/26/22 at 0030, Administer over 30 Minutes, 100 mL
Reas on for Anti-Infec tive: Documented Infection< br>Documen todd Infection Site: Respirator y
Durat ion of Therapy: 7 days heparin Yes 5000U 5,000 Univers (porcine) 10-20 Units, ity of injection 01:00: Subcutaneo [place] 5,000 Units 00 us, Q12H, Med ical First dose Branch on Sat10/19/22 at 2000, Until Discontinu ed, Routine Sliding No Subcutaneo Uni vers Scale 10-19 08-20 us, Q6H, ity of Insulin - 17:00: 16:33 First dose [place] Lispro 00 :06 on Sat Medical (HumaLOG) 10/19/22 at [facility] 1200, Until Discontinu ed, Routine fentaNYL [...] 1,000 mcg 00 :00 1 dose, On [facility] Sat Branch 10/19/22 at 1045, Routine budesonide 2022- No .5mg 0.5 mg, Uni vers (PULMICORT 10-19 Inhalation it y of RESPULE) 15:00: 19:21 , BID, [place] nebulizer 00 :17 First dose Medi christa [...] Medical Fri Branch 10/19/22 at 0900, Routine
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 Medical 78 mL/hr, Branch [...] :00 dose, On Medica l 120 mg [facility] 10/19/22 at 0700, STAT etomidate 2022-2022- No 24mg 24 mg, Unive rs (AMIDATE) 10-19 Slow IV ity of injection 11:45: 11:45 Push, [place] 24 mg 00 :00 ONCE, 1 Medical dose, On [place] Sat10/19/22 at 0645, STAT magnesium 2022-0 2022- [...] 00 :00 ONCE, 1 Medical dose, On [place] Sat10/19/22 at 0430, STAT predniSONE 3-0 Yes 40mg Take 2 Unive rs 20 mg 8-09 tablets by ity of tablet 00:00: mouth in [place] 00 the Medical morning. Branch predniSONE 2023-0 Yes 40mg Take 2 Unive rs 20 mg 8-09 tablets by ity of tablet 00:00: mouth in [place] 00 the Medical morning. Branch predniSONE 2023-0 Yes 40mg Take 2 Unive rs 20 mg 8-09 tablets by ity of tablet 00:00: mouth in [place] 00 the Medical morning. Branch acetaZOLAMI 2022- No [id number] 250mg Take 1 Univers [place] 250 mg 10-10 tablet by ity of tablet 00:00: 04:59 mouth in [place] 00 :00 the [facility] for 30 days. spironolact 2022- No [id number] 12.5mg Take 0.5 Univers one 25 mg 10-10 tablets by ity of tablet 00:00: 04:59 mouth in [place] 00 :00 the [facility] for 30 days. acetaZOLAMI 2022- No [id number] 250mg Take 1 Univers [place] 250 mg 10-10 tablet by ity of tablet 00:00: 04:59 mouth in [place] 00 :00 the [facility] for 30 days. spironolact 2022- No [id number] 12.5mg Take 0.5 Univers one 25 mg 10-10 tablets by ity of tablet 00:00: 04:59 mouth in [place] 00 :00 the [facility] for 30 days. acetaZOLAMI 2022- No [id number] 250mg Take 1 Univers [place] 250 mg 10-10 tablet by ity of tablet 00:00: 04:59 mouth in [place] 00 :00 the [facility] for 30 days. spironolact 2022- No [id number] 12.5mg Take 0.5 Univers one 25 mg 10-10 tablets by ity of tablet 00:00: 04:59 mouth in [place] 00 :00 the [facility] for 30 days. acetaZOLAMI 2022- No [id number] 250mg Take 1 Univers [place] 250 mg 10-10 tablet by ity of tablet 00:00: 04:59 mouth in [place] 00 :00 the [facility] for 30 days. spironolact 2022- No [id number] 12.5mg Take 0.5 Univers one 25 mg 10-10 tablets by ity of tablet 00:00: 04:59 mouth in [place] 00 :00 the [facility] for 30 days. acetaZOLAMI 2022- No [id number] 250mg Take 1 Univers [place] 250 mg 10-10 tablet by ity of tablet 00:00: 04:59 mouth in [place] 00 :00 the [facility] for 30 days. spironolact 2022- No [id number] 12.5mg Take 0.5 Univers one 25 mg 10-10 tablets by ity of tablet 00:00: 04:59 mouth in [place] 00 :00 the [facility] for 30 days. acetaZOLAMI 2022- No [id number] 250mg Take 1 Univers [place] 250 mg 10-10 tablet by ity of tablet 00:00: 04:59 mouth in [place] 00 :00 the [facility] for 30 days. spironolact 2022- No [id number] 12.5mg Take 0.5 Univers one 25 mg 10-10 tablets by ity of tablet 00:00: 04:59 mouth in [place] 00 :00 the [facility] for 30 days. acetaZOLAMI 2022- No [id number] 250mg Take 1 Univers [place] 250 mg 10-10 tablet by ity of tablet 00:00: 04:59 mouth in [place] 00 :00 [facility] for 30 days. spironolact 2022- No [id number] 12.5mg Take 0.5 Univers one 25 mg 10-10 tablets by ity of tablet 00:00: 04:59 mouth in [place] 00 :00 the [facility] for 30 days. acetaZOLAMI 2022- No [id number] 250mg Take 1 Univers [place] 250 mg 10-10 tablet by ity of tablet 00:00: 04:59 mouth in [place] 00 :00 the [facility] for 30 days. spironolact 2022- No [id number] 12.5mg Take 0.5 Univers one 25 mg 10-10 tablets by ity of tablet 00:00: 04:59 mouth in [place] 00 :00 the [facility] for 30 days. acetaZOLAMI 2022-2022- No [id number] 250mg Take 1 Univers [place] 250 mg 10-10 tablet by ity of tablet 00:00: 04:59 mouth in [place] 00 :00 the [facility] for 30 days. spironolact 0 2022- No [id number] 12.5mg Take 0.5 Univers one 25 mg 10-10 tablets by ity of tablet 00:00: 04:59 mouth in [place] 00 :00 the Medical morning Branch for 30 days. acetaZOLAMI 2022- No [id number] 250mg Take 1 Univers [place] 250 mg 10-10 tablet by ity of tablet 00:00: 04:59 mouth in [place] 00 :00 the [facility] morning [place] for 30 days. spironolact 2022- No [id number] 12.5mg Take 0.5 Univers one 25 mg 10-10 tablets by ity of tablet 00:00: 04:59 mouth in [place] 00 :00 the [facility] morning [place] for 30 days. acetaZOLAMI 2022- No [id number] 250mg Take 1 Univers [place] 250 mg 10-10 tablet by ity of tablet 00:00: 04:59 mouth in [place] 00 :00 the [facility] for 30 days. spironolact 2022- No [id number] 12.5mg Take 0.5 Univers one 25 mg 10-10 tablets by ity of tablet 00:00: 04:59 mouth in [place] 00 :00 the [facility] for 30 days. acetaZOLAMI 2022- No [id number] 250mg Take 1 [facility] [place] 250 mg 10-10 tablet by ity of tablet 00:00: 04:59 mouth in [place] 00 :00 the [facility] for 30 days. spironolact 2022- No [id number] 12.5mg Take 0.5 [facility] one 25 mg 10-10 tablets by ity of tablet 00:00: 04:59 mouth in [place] 00 :00 the [facility] for 30 days. acetaZOLAMI 2022- No [id number] 250mg Take 1 [facility] [place] 250 mg 10-10 tablet by ity of tablet 00:00: 04:59 mouth in [place] 00 :00 the [facility] for 30 days. spironolact 2022- No [id number] 12.5mg Take 0.5 [facility] one 25 mg 10-10 tablets by ity of tablet 00:00: 04:59 mouth in [place] 00 :00 the [facility] for 30 days. acetaZOLAMI 2022- No [id number] 250mg Take 1 [facility] [place] 250 mg 10-10 tablet by ity of tablet 00:00: 04:59 mouth in [place] 00 :00 the Medical morning Branch for 30 days. spironolact 2022-0 2022- No [id number] 12.5mg Take 0.5 [facility] one 25 mg 10-10 tablets by ity of tablet 00:00: 04:59 mouth in [place] 00 :00 the Medical morning Branch for 30 days. acetaZOLAMI 0 2022- No [id number] 250mg Take 1 [facility] [place] 250 mg 10-10 tablet by ity of tablet 00:00: 04:59 mouth in [place] 00 :00 the Medical morning Branch for 30 days. spironolact 2022-2022- No [id number] 12.5mg Take 0.5 [facility] one 25 mg 10-10 tablets by ity of tablet 00:00: 04:59 mouth in [place] 00 :00 the Medical morning Branch for 30 days. predniSONE 2022-2022- No 40mg Take 2 [facility] ers 20 mg 10-1022 tablets by ity of tablet 00:00: 00:00 mouth in [place] 00 :00 the Medical morning. [place] oxymetazoli 0 Yes 1{puff} Use 1 Puff [facility] ne HCl 8-08 in each ity of (AFRIN 18:56: nostril [place] NASAL) 27 every Medical other day. Branch Patient takes afrin over the counter, takes every other day oxymetazoli 2022-0 Yes 1{puff} Use 1 Puff [facility] ne HCl 8-08 in each ity of (AFRIN 18:56: nostril [place] NASAL) 27 every Medical other day. Branch Patient takes afrin over the counter, takes every other day oxymetazoli 2022-0 Yes 1{puff} Use 1 Puff [facility] ne HCl 8-08 in each ity of (AFRIN 18:56: nostril [place] NASAL) 27 every Medical other day. Branch Patient takes afrin over the counter, takes every other day tamsulosin 2022-0 Yes .4mg 0.4 mg, Univ ers (FLOMAX) 8-08 Oral, QHS, ity o f capsule 0.4 02:00: First dose [place] mg 00 (after Medical last Branch modificati on) on Sat10/08/22 at 2100, Until Discontinu ed, Routine hydrOXYzine 3-0 Yes [id number] 25mg Take 1 [facility] 25 mg 8-08 tablet by ity of tablet 00:00: mouth [place] 00 every 12 Medical (twelve) Branch hours as needed for Anxiety or Itching. baclofen 5 2022-0 Yes [id number] 5mg Take 1 [facility] nivers mg tablet 8-08 tablet by ity o f 00:00: mouth 3 [place] 00 (three) Medical times Branch daily as needed (Muscle spasms). hydrOXYzine 2022-0 Yes [id number] 25mg Take 1 [facility] 25 mg 8-08 tablet by ity of tablet 00:00: mouth [place] 00 every 12 Medical (twelve) Branch hours as needed for Anxiety or Itching. baclofen 5 2022-0 Yes [id number] 5mg Take 1 [facility] nivers mg tablet 8-08 tablet by ity o f 00:00: mouth 3 [place] 00 (three) Medical times Branch daily as needed (Muscle spasms). hydrOXYzine 2022-0 Yes [id number] 25mg Take 1 [facility] 25 mg 8-08 tablet by ity of tablet 00:00: mouth [place] 00 every 12 Medical (twelve) Branch hours as needed for Anxiety or Itching. baclofen 5 2022-0 Yes [id number] 5mg Take 1 [facility] nivers mg tablet 8-08 tablet by ity o f 00:00: mouth 3 [place] 00 (three) Medical times Branch daily as needed (Muscle spasms). hydrOXYzine 2022-0 Yes [id number] 25mg Take 1 [facility] 25 mg 8-08 tablet by ity of tablet 00:00: mouth [place] 00 every 12 Medical (twelve) Branch hours as needed for Anxiety or Itching. baclofen 5 2022-0 Yes [id number] 5mg Take 1 [facility] nivers mg tablet 8-08 tablet by ity o f 00:00: mouth 3 [place] 00 (three) Medical times Branch daily as needed (Muscle spasms). hydrOXYzine 3-0 Yes [id number] 25mg Take 1 [facility] 25 mg 8-08 tablet by ity of tablet 00:00: mouth [place] 00 every 12 Medical (twelve) Branch hours as needed for Anxiety or Itching. baclofen 5 2022-0 Yes [id number] 5mg Take 1 [facility] nivers mg tablet 8-08 tablet by ity o f 00:00: mouth 3 [place] 00 (three) Medical times Branch daily as needed (Muscle spasms). hydrOXYzine 2023-0 Yes [id number] 25mg Take 1 [facility] 25 mg 8-08 tablet by ity of tablet 00:00: mouth [place] 00 every 12 Medical (twelve) Branch hours as needed for Anxiety or Itching. baclofen 5 3-0 Yes [id number] 5mg Take 1 [facility] nivers mg tablet 8-08 tablet by ity o f 00:00: mouth 3 [place] 00 (three) Medical times Branch daily as needed (Muscle spasms). hydrOXYzine 2023-0 Yes [id number] 25mg Take 1 [facility] 25 mg 8-08 tablet by ity of tablet 00:00: mouth [place] 00 every 12 Medical (twelve) Branch hours as needed for Anxiety or Itching. baclofen 5 3-0 Yes [id number] 5mg Take 1 [facility] nivers mg tablet 8-08 tablet by ity o f 00:00: mouth 3 [place] 00 (three) Medical times Branch daily as needed (Muscle spasms). hydrOXYzine 2023-0 Yes [id number] 25mg Take 1 [facility] 25 mg 8-08 tablet by ity of tablet 00:00: mouth [place] 00 every 12 Medical (twelve) Branch hours as needed for Anxiety or Itching. baclofen 5 3-0 Yes [id number] 5mg Take 1 U nivers mg tablet 8-08 tablet by ity o f 00:00: mouth 3 [place] 00 (three) Medical times Branch daily as needed (Muscle spasms). hydrOXYzine 2023-0 Yes [id number] 25mg Take 1 [facility] 25 mg 8-08 tablet by ity of tablet 00:00: mouth [place] 00 every 12 Medical (twelve) Branch hours as needed for Anxiety or Itching. baclofen 5 2023-0 Yes [id number] 5mg Take 1 U nivers mg tablet 8-08 tablet by ity o f 00:00: mouth 3 [place] 00 (three) Medical times Branch daily as needed (Muscle spasms). hydrOXYzine 2023-0 Yes [id number] 25mg Take 1 [facility] 25 mg 8-08 tablet by ity of tablet 00:00: mouth [place] 00 every 12 Medical (twelve) Branch hours as needed for Anxiety or Itching. baclofen 5 3-0 Yes [id number] 5mg Take 1 [facility] nivers mg tablet 8-08 tablet by ity o f 00:00: mouth 3 [place] 00 (three) Medical times Branch daily as needed (Muscle spasms). hydrOXYzine 3-0 Yes [id number] 25mg Take 1 [facility] 25 mg 8-08 tablet by ity of tablet 00:00: mouth [place] 00 every 12 Medical (twelve) Branch hours as needed for Anxiety or Itching. baclofen 5 2022-0 Yes [id number] 5mg Take 1 [facility] nivers mg tablet 8-08 tablet by ity o f 00:00: mouth 3 [place] 00 (three) Medical times Branch daily as needed (Muscle spasms). hydrOXYzine 3-0 Yes [id number] 25mg Take 1 [facility] 25 mg 8-08 tablet by ity of tablet 00:00: mouth [place] 00 every 12 Medical (twelve) Branch hours as needed for Anxiety or Itching. baclofen 5 2022-0 Yes [id number] 5mg Take 1 [facility] nivers mg tablet 8-08 tablet by ity o f 00:00: mouth 3 [place] 00 (three) Medical times Branch daily as needed (Muscle spasms). hydrOXYzine 3-0 Yes [id number] 25mg Take 1 [facility] 25 mg 8-08 tablet by ity of tablet 00:00: mouth [place] 00 every 12 Medical (twelve) Branch hours as needed for Anxiety or Itching. baclofen 5 3-0 Yes [id number] 5mg Take 1 [facility] nivers mg tablet 8-08 tablet by ity o f 00:00: mouth 3 [place] 00 (three) Medical times Branch daily as needed (Muscle spasms). hydrOXYzine 3-0 Yes [id number] 25mg Take 1 [facility] 25 mg 8-08 tablet by ity of tablet 00:00: mouth [place] 00 every 12 Medical (twelve) Branch hours as needed for Anxiety or Itching. baclofen 5 3-0 Yes [id number] 5mg Take 1 [facility] nivers mg tablet 8-08 tablet by ity o f 00:00: mouth 3 [place] 00 (three) Medical times Branch daily as needed (Muscle spasms). hydrOXYzine 2023-0 Yes [id number] 25mg Take 1 [facility] 25 mg 8-08 tablet by ity of tablet 00:00: mouth [place] 00 every 12 Medical (twelve) Branch hours as needed for Anxiety or Itching. baclofen 5 3-0 Yes [id number] 5mg Take 1 U nivers mg tablet 8-08 tablet by ity o f 00:00: mouth 3 [place] 00 (three) Medical times Branch daily as needed (Muscle spasms). hydrOXYzine 3-0 Yes [id number] 25mg Take 1 [facility] 25 mg 8-08 tablet by ity of tablet 00:00: mouth [place] 00 every 12 Medical (twelve) Branch hours as needed for Anxiety or Itching. baclofen 5 2022-0 Yes [id number] 5mg Take 1 U nivers mg tablet 8-08 tablet by ity o f 00:00: mouth 3 [place] 00 (three) Medical times Branch daily as needed (Muscle spasms). hydrOXYzine 3-0 Yes [id number] 25mg Take 1 [facility] 25 mg 8-08 tablet by ity of tablet 00:00: mouth [place] 00 every 12 Medical (twelve) Branch hours as needed for Anxiety or Itching. baclofen 5 2022-0 Yes [id number] 5mg Take 1 U nivers mg tablet 8-08 tablet by ity o f 00:00: mouth 3 [place] 00 (three) Medical times Branch daily as needed (Muscle spasms). hydrOXYzine 3-0 Yes [id number] 25mg Take 1 [facility] 25 mg 8-08 tablet by ity of tablet 00:00: mouth [place] 00 every 12 Medical (twelve) Branch hours as needed for Anxiety or Itching. baclofen 5 3-0 Yes [id number] 5mg Take 1 [facility] nivers mg tablet 8-08 tablet by ity o f 00:00: mouth 3 [place] 00 (three) Medical times Branch daily as needed (Muscle spasms). hydrOXYzine 2023-0 Yes [id number] 25mg Take 1 [facility] 25 mg 8-08 tablet by ity of tablet 00:00: mouth [place] 00 every 12 Medical (twelve) Branch hours as needed for Anxiety or Itching. baclofen 5 3-0 Yes [id number] 5mg Take 1 [facility] nivers mg tablet 8-08 tablet by ity o f 00:00: mouth 3 [place] 00 (three) Medical times Branch daily as needed (Muscle spasms). hydrOXYzine 2023-0 Yes [id number] 25mg Take 1 [facility] 25 mg 8-08 tablet by ity of tablet 00:00: mouth [place] 00 every 12 Medical (twelve) Branch hours as needed for Anxiety or Itching. baclofen 5 2022-0 Yes [id number] 5mg Take 1 U nivers mg tablet 8-08 tablet by ity o f 00:00: mouth 3 [place] 00 (three) Medical times Branch daily as needed (Muscle spasms). hydrOXYzine 2022-0 Yes [id number] 25mg Take 1 [facility] 25 mg 8-08 tablet by ity of tablet 00:00: mouth [place] 00 every 12 Medical (twelve) Branch hours as needed for Anxiety or Itching. baclofen 5 2022-0 Yes [id number] 5mg Take 1 U nivers mg tablet 8-08 tablet by ity o f 00:00: mouth 3 [place] 00 (three) Medical times Branch daily as needed (Muscle spasms). hydrOXYzine 2022-0 Yes [id number] 25mg Take 1 [facility] 25 mg 8-08 tablet by ity of tablet 00:00: mouth [place] 00 every 12 Medical (twelve) Branch hours as needed for Anxiety or Itching. baclofen 5 2022-0 Yes [id number] 5mg Take 1 U nivers mg tablet 8-08 tablet by ity o f 00:00: mouth 3 [place] 00 (three) Medical times Branch daily as needed (Muscle spasms). hydrOXYzine 2022-0 Yes [id number] 25mg Take 1 [facility] 25 mg 8-08 tablet by ity of tablet 00:00: mouth [place] 00 every 12 Medical (twelve) Branch hours as needed for Anxiety or Itching. baclofen 5 2022-0 Yes [id number] 5mg Take 1 U nivers mg tablet 8-08 tablet by ity o f 00:00: mouth 3 [place] 00 (three) Medical times Branch daily as needed (Muscle spasms). hydrOXYzine 2022-0 Yes [id number] 25mg Take 1 [facility] 25 mg 8-08 tablet by ity of tablet 00:00: mouth [place] 00 every 12 Medical (twelve) Branch hours as needed for Anxiety or Itching. baclofen 5 2022-0 Yes [id number] 5mg Take 1 U nivers mg tablet 8-08 tablet by ity o f 00:00: mouth 3 [place] 00 (three) Medical times Branch daily as needed (Muscle spasms). hydrOXYzine 2022-0 Yes [id number] 25mg Take 1 [facility] 25 mg 8-08 tablet by ity of tablet 00:00: mouth [place] 00 every 12 Medical (twelve) Branch hours as needed for Anxiety or Itching. baclofen 5 3-0 Yes [id number] 5mg Take 1 U nivers mg tablet 8-08 tablet by ity o f 00:00: mouth 3 [place] 00 (three) Medical times Branch daily as needed (Muscle spasms). hydrOXYzine 2023-0 Yes [id number] 25mg Take 1 [facility] 25 mg 8-08 tablet by ity of tablet 00:00: mouth [place] 00 every 12 Medical (twelve) Branch hours as needed for Anxiety or Itching. baclofen 5 3-0 Yes [id number] 5mg Take 1 U nivers mg tablet 8-08 tablet by ity o f 00:00: mouth 3 [place] 00 (three) Medical times Branch daily as needed (Muscle spasms). hydrOXYzine 3-0 Yes [id number] 25mg Take 1 [facility] 25 mg 8-08 tablet by ity of tablet 00:00: mouth [place] 00 every 12 Medical (twelve) Branch hours as needed for Anxiety or Itching. baclofen 5 3-0 Yes [id number] 5mg Take 1 U nivers mg tablet 8-08 tablet by ity o f 00:00: mouth 3 [place] 00 (three) Medical times Branch daily as needed (Muscle spasms). hydrOXYzine 3-0 Yes [id number] 25mg Take 1 [facility] 25 mg 8-08 tablet by ity of tablet 00:00: mouth [place] 00 every 12 Medical (twelve) Branch hours as needed for Anxiety or Itching. baclofen 5 3-0 Yes [id number] 5mg Take 1 U nivers mg tablet 8-08 tablet by ity o f 00:00: mouth 3 [place] 00 (three) Medical times Branch daily as needed (Muscle spasms). hydrOXYzine 2023-0 Yes [id number] 25mg Take 1 [facility] 25 mg 8-08 tablet by ity of tablet 00:00: mouth [place] 00 every 12 Medical (twelve) Branch hours as needed for Anxiety or Itching. baclofen 5 3-0 Yes [id number] 5mg Take 1 U nivers mg tablet 8-08 tablet by ity o f 00:00: mouth 3 [place] 00 (three) Medical times Branch daily as needed (Muscle spasms). hydrOXYzine 2023-0 Yes [id number] 25mg Take 1 [facility] 25 mg 8-08 tablet by ity of tablet 00:00: mouth [place] 00 every 12 Medical (twelve) Branch hours as needed for Anxiety or Itching. baclofen 5 3-0 Yes [id number] 5mg Take 1 U nivers mg tablet 8-08 tablet by ity o f 00:00: mouth 3 [place] 00 (three) Medical times Branch daily as needed (Muscle spasms). hydrOXYzine 3-0 Yes [id number] 25mg Take 1 [facility] 25 mg 8-08 tablet by ity of tablet 00:00: mouth [place] 00 every 12 Medical (twelve) Branch hours as needed for Anxiety or Itching. baclofen 5 3-0 Yes [id number] 5mg Take 1 U nivers mg tablet 8-08 tablet by ity o f 00:00: mouth 3 [place] 00 (three) Medical times Branch daily as needed (Muscle spasms). hydrOXYzine 3-0 Yes [id number] 25mg Take 1 [facility] 25 mg 8-08 tablet by ity of tablet 00:00: mouth [place] 00 every 12 Medical (twelve) Branch hours as needed for Anxiety or Itching. baclofen 5 3-0 Yes [id number] 5mg Take 1 U nivers mg tablet 8-08 tablet by ity o f 00:00: mouth 3 [place] (three) Medical times Branch daily as needed (Muscle spasms). hydrOXYzine 2023-0 Yes [id number] 25mg Take 1 [facility] 25 mg 8-08 tablet by ity of tablet 00:00: mouth [place] 00 every 12 Medical (twelve) Branch hours as needed for Anxiety or Itching. baclofen 5 3-0 Yes [id number] 5mg Take 1 [facility] nivers mg tablet 8-08 tablet by ity o f 00:00: mouth 3 [place] 00 (three) Medical times Branch daily as needed (Muscle spasms). hydrOXYzine 2023-0 Yes [id number] 25mg Take 1 [facility] 25 mg 8-08 tablet by ity of tablet 00:00: mouth [place] 00 every 12 Medical (twelve) Branch hours as needed for Anxiety or Itching. baclofen 5 3-0 Yes [id number] 5mg Take 1 [facility] nivers mg tablet 8-08 tablet by ity o f 00:00: mouth 3 [place] 00 (three) Medical times Branch daily as needed (Muscle spasms). hydrOXYzine 2023-0 Yes [id number] 25mg Take 1 [facility] 25 mg 8-08 tablet by ity of tablet 00:00: mouth [place] 00 every 12 Medical (twelve) Branch hours as needed for Anxiety or Itching. baclofen 5 2022-0 Yes [id number] 5mg Take 1 [facility] nivers mg tablet 8-08 tablet by ity o f 00:00: mouth 3 [place] 00 (three) Medical times Branch daily as needed (Muscle spasms). hydrOXYzine 3-0 Yes [id number] 25mg Take 1 [facility] 25 mg 8-08 tablet by ity of tablet 00:00: mouth [place] 00 every 12 Medical (twelve) Branch hours as needed for Anxiety or Itching. baclofen 5 2022-0 Yes [id number] 5mg Take 1 [facility] nivers mg tablet 8-08 tablet by ity o f 00:00: mouth 3 [place] 00 (three) Medical times Branch daily as needed (Muscle spasms). hydrOXYzine 2022-0 Yes [id number] 25mg Take 1 [facility] 25 mg 8-08 tablet by ity of tablet 00:00: mouth [place] 00 every 12 Medical (twelve) Branch hours as needed for Anxiety or Itching. baclofen 5 3-0 Yes [id number] 5mg Take 1 U nivers mg tablet 8-08 tablet by ity o f 00:00: mouth 3 [place] 00 (three) Medical times Branch daily as needed (Muscle spasms). hydrOXYzine 2023-0 Yes [id number] 25mg Take 1 [facility] 25 mg 8-08 tablet by ity of tablet 00:00: mouth [place] 00 every 12 Medical (twelve) Branch hours as needed for Anxiety or Itching. baclofen 5 3-0 Yes [id number] 5mg Take 1 U nivers mg tablet 8-08 tablet by ity o f 00:00: mouth 3 [place] 00 (three) Medical times Branch daily as needed (Muscle spasms). hydrOXYzine 2023-0 Yes [id number] 25mg Take 1 [facility] 25 mg 8-08 tablet by ity of tablet 00:00: mouth [place] 00 every 12 Medical (twelve) Branch hours as needed for Anxiety or Itching. baclofen 5 3-0 Yes [id number] 5mg Take 1 [facility] nivers mg tablet 8-08 tablet by ity o f 00:00: mouth 3 [place] 00 (three) Medical times Branch daily as needed (Muscle spasms). hydrOXYzine 2023-0 Yes [id number] 25mg Take 1 [facility] 25 mg 8-08 tablet by ity of tablet 00:00: mouth [place] 00 every 12 Medical (twelve) Branch hours as needed for Anxiety or Itching. baclofen 5 3-0 Yes [id number] 5mg Take 1 [facility] nivers mg tablet 8-08 tablet by ity o f 00:00: mouth 3 [place] 00 (three) Medical times Branch daily as needed (Muscle spasms). hydrOXYzine 3-0 Yes [id number] 25mg Take 1 [facility] 25 mg 8-08 tablet by ity of tablet 00:00: mouth [place] 00 every 12 Medical (twelve) Branch hours as needed for Anxiety or Itching. baclofen 5 3-0 Yes [id number] 5mg Take 1 [facility] nivers mg tablet 8-08 tablet by ity o f 00:00: mouth 3 [place] 00 (three) Medical times Branch daily as needed (Muscle spasms). hydrOXYzine 3-0 Yes [id number] 25mg Take 1 [facility] 25 mg 8-08 tablet by ity of tablet 00:00: mouth [place] 00 every 12 Medical (twelve) Branch hours as needed for Anxiety or Itching. baclofen 5 3-0 Yes [id number] 5mg Take 1 [facility] nivers mg tablet 8-08 tablet by ity o f 00:00: mouth 3 [place] 00 (three) Medical times Branch daily as needed (Muscle spasms). hydrOXYzine 3-0 Yes [id number] 25mg Take 1 [facility] 25 mg 8-08 tablet by ity of tablet 00:00: mouth [place] 00 every 12 Medical (twelve) Branch hours as needed for Anxiety or Itching. baclofen 5 3-0 Yes [id number] 5mg Take 1 [facility] nivers mg tablet 8-08 tablet by ity o f 00:00: mouth 3 [place] 00 (three) Medical times Branch daily as needed (Muscle spasms). hydrOXYzine 2023-0 Yes [id number] 25mg Take 1 [facility] 25 mg 8-08 tablet by ity of tablet 00:00: mouth [place] 00 every 12 Medical (twelve) Branch hours as needed for Anxiety or Itching. baclofen 5 3-0 Yes [id number] 5mg Take 1 [facility] nivers mg tablet 8-08 tablet by ity o f 00:00: mouth 3 [place] 00 (three) Medical times Branch daily as needed (Muscle spasms). hydrOXYzine 2023-0 Yes [id number] 25mg Take 1 [facility] 25 mg 8-08 tablet by ity of tablet 00:00: mouth [place] 00 every 12 Medical (twelve) Branch hours as needed for Anxiety or Itching. baclofen 5 3-0 Yes [id number] 5mg Take 1 [facility] nivers mg tablet 8-08 tablet by ity o f 00:00: mouth 3 [place] 00 (three) Medical times Branch daily as needed (Muscle spasms). hydrOXYzine 2023-0 Yes [id number] 25mg Take 1 [facility] 25 mg 8-08 tablet by ity of tablet 00:00: mouth [place] 00 every 12 Medical (twelve) Branch hours as needed for Anxiety or Itching. baclofen 5 3-0 Yes [id number] 5mg Take 1 [facility] nivers mg tablet 8-08 tablet by ity o f 00:00: mouth 3 [place] 00 (three) Medical times Branch daily as needed (Muscle spasms). hydrOXYzine 3-0 Yes [id number] 25mg Take 1 [facility] 25 mg 8-08 tablet by ity of tablet 00:00: mouth [place] 00 every 12 Medical (twelve) Branch hours as needed for Anxiety or Itching. baclofen 5 3-0 Yes [id number] 5mg Take 1 [facility] nivers mg tablet 8-08 tablet by ity o f 00:00: mouth 3 [place] 00 (three) Medical times Branch daily as needed (Muscle spasms). hydrOXYzine 2023-0 Yes [id number] 25mg Take 1 [facility] 25 mg 8-08 tablet by ity of tablet 00:00: mouth [place] 00 every 12 Medical (twelve) Branch hours as needed for Anxiety or Itching. baclofen 5 3-0 Yes [id number] 5mg Take 1 [facility] nivers mg tablet 8-08 tablet by ity o f 00:00: mouth 3 [place] 00 (three) Medical times Branch daily as needed (Muscle spasms). hydrOXYzine 2023-0 Yes [id number] 25mg Take 1 [facility] 25 mg 8-08 tablet by ity of tablet 00:00: mouth [place] 00 every 12 Medical (twelve) Branch hours as needed for Anxiety or Itching. baclofen 5 3-0 Yes [id number] 5mg Take 1 [facility] nivers mg tablet 8-08 tablet by ity o f 00:00: mouth 3 [place] 00 (three) Medical times Branch daily as needed (Muscle spasms). hydrOXYzine 2023-0 Yes [id number] 25mg Take 1 [facility] 25 mg 8-08 tablet by ity of tablet 00:00: mouth [place] 00 every 12 Medical (twelve) Branch hours as needed for Anxiety or Itching. baclofen 5 2022-0 Yes [id number] 5mg Take 1 [facility] n[facility] mg tablet 8-08 tablet by ity o f 00:00: mouth 3 [place] 00 (three) Medical times Branch daily as needed (Muscle spasms). hydrOXYzine 3-0 Yes [id number] 25mg Take 1 [facility] 25 mg 8-08 tablet by ity of tablet 00:00: mouth [place] 00 every 12 Medical (twelve) Branch hours as needed for Anxiety or Itching. baclofen 5 2022-0 Yes [id number] 5mg Take 1 [facility] n[facility] mg tablet 8-08 tablet by ity o f 00:00: mouth 3 [place] 00 (three) Medical times Branch daily as needed (Muscle spasms). hydrOXYzine 3-0 Yes [id number] 25mg Take 1 [facility] 25 mg 8-08 tablet by ity of tablet 00:00: mouth [place] 00 every 12 Medical (twelve) Branch hours as needed for Anxiety or Itching. baclofen 5 3-0 Yes [id number] 5mg Take 1 [facility] n[facility] mg tablet 8-08 tablet by ity o f 00:00: mouth 3 [place] 00 (three) Medical times Branch daily as needed (Muscle spasms). hydrOXYzine 2023-0 Yes [id number] 25mg Take 1 [facility] 25 mg 8-08 tablet by ity of tablet 00:00: mouth [place] 00 every 12 Medical (twelve) Branch hours as needed for Anxiety or Itching. baclofen 5 3-0 Yes [id number] 5mg Take 1 [facility] n[facility] mg tablet 8-08 tablet by ity o f 00:00: mouth 3 [place] 00 (three) Medical times Branch daily as needed (Muscle spasms). hydrOXYzine 2023-0 Yes [id number] 25mg Take 1 [facility] 25 mg 8-08 tablet by ity of tablet 00:00: mouth [place] 00 every 12 Medical (twelve) Branch hours as needed for Anxiety or Itching. baclofen 5 2022-0 Yes [id number] 5mg Take 1 [facility] n[facility] mg tablet 8-08 tablet by ity o f 00:00: mouth 3 [place] 00 (three) Medical times Branch daily as needed (Muscle spasms). hydrOXYzine 2022-0 Yes [id number] 25mg Take 1 [facility] 25 mg 8-08 tablet by ity of tablet 00:00: mouth [place] 00 every 12 Medical (twelve) Branch hours as needed for Anxiety or Itching. baclofen 5 2022-0 Yes [id number] 5mg Take 1 [facility] n[facility] mg tablet 8-08 tablet by ity o f 00:00: mouth 3 [place] 00 (three) Medical times Branch daily as needed (Muscle spasms). hydrOXYzine 2022-0 Yes [id number] 25mg Take 1 [facility] 25 mg 8-08 tablet by ity of tablet 00:00: mouth [place] 00 every 12 Medical (twelve) Branch hours as needed for Anxiety or Itching. baclofen 5 2022-0 Yes [id number] 5mg Take 1 [facility] n[facility] mg tablet 8-08 tablet by ity o f 00:00: mouth 3 [place] 00 (three) Medical times Branch daily as needed (Muscle spasms). hydrOXYzine 2022-0 Yes [id number] 25mg Take 1 [facility] 25 mg 8-08 tablet by ity of tablet 00:00: mouth [place] 00 every 12 Medical (twelve) Branch hours as needed for Anxiety or Itching. baclofen 5 2022-0 Yes [id number] 5mg Take 1 [facility] n[facility] mg tablet 8-08 tablet by ity o f 00:00: mouth 3 [place] 00 (three) Medical times Branch daily as needed (Muscle spasms). hydrOXYzine 3-0 Yes [id number] 25mg Take 1 [facility] 25 mg 8-08 tablet by ity of tablet 00:00: mouth [place] 00 every 12 Medical (twelve) Branch hours as needed for Anxiety or Itching. baclofen 5 3-0 Yes [id number] 5mg Take 1 [facility] n[facility] mg tablet 8-08 tablet by ity o f 00:00: mouth 3 [place] 00 (three) Medical times Branch daily as needed (Muscle spasms). hydrOXYzine 3-0 Yes [id number] 25mg Take 1 [facility] 25 mg 8-08 tablet by ity of tablet 00:00: mouth [place] 00 every 12 Medical (twelve) Branch hours as needed for Anxiety or Itching. baclofen 5 3-0 Yes [id number] 5mg Take 1 [facility] n[facility] mg tablet 8-08 tablet by ity o f 00:00: mouth 3 [place] 00 (three) Medical times Branch daily as needed (Muscle spasms). hydrOXYzine 2023-0 Yes [id number] 25mg Take 1 [facility] 25 mg 8-08 tablet by ity of tablet 00:00: mouth [place] 00 every 12 Medical (twelve) Branch hours as needed for Anxiety or Itching. baclofen 5 3-0 Yes [id number] 5mg Take 1 [facility] n[facility] mg tablet 8-08 tablet by ity o f 00:00: mouth 3 [place] 00 (three) Medical times Branch daily as needed (Muscle spasms). hydrOXYzine 2023-0 Yes [id number] 25mg Take 1 [facility] 25 mg 8-08 tablet by ity of tablet 00:00: mouth [place] 00 every 12 Medical (twelve) Branch hours as needed for Anxiety or Itching. baclofen 5 3-0 Yes [id number] 5mg Take 1 [facility] n[facility] mg tablet 8-08 tablet by ity o f 00:00: mouth 3 [place] 00 (three) Medical times Branch daily as needed (Muscle spasms). hydrOXYzine 2023-0 Yes [id number] 25mg Take 1 [facility] 25 mg 8-08 tablet by ity of tablet 00:00: mouth [place] 00 every 12 Medical (twelve) Branch hours as needed for Anxiety or Itching. baclofen 5 3-0 Yes [id number] 5mg Take 1 U nivers mg tablet 8-08 tablet by ity o f 00:00: mouth 3 [place] 00 (three) Medical times Branch daily as needed (Muscle spasms). hydrOXYzine 2023-0 Yes [id number] 25mg Take 1 [facility] 25 mg 8-08 tablet by ity of tablet 00:00: mouth [place] 00 every 12 Medical (twelve) Branch hours as needed for Anxiety or Itching. baclofen 5 3-0 Yes [id number] 5mg Take 1 U nivers mg tablet 8-08 tablet by ity o f 00:00: mouth 3 [place] 00 (three) Medical times Branch daily as needed (Muscle spasms). hydrOXYzine 2022-0 Yes [id number] 25mg Take 1 [facility] 25 mg 8-08 tablet by ity of tablet 00:00: mouth [place] 00 every 12 Medical (twelve) Branch hours as needed for Anxiety or Itching. baclofen 5 2022-0 Yes [id number] 5mg Take 1 U nivers mg tablet 8-08 tablet by ity o f 00:00: mouth 3 [place] 00 (three) Medical times Branch daily as needed (Muscle spasms). bumetanide 2022-0 2022- No [id number] .5mg Take 1 [facility] 0.5 mg 8-08 09-08 tablet by ity of tablet 00:00: 04:59 mouth in [place] 00 :00 the [facility] morning Branch for 30 days. bumetanide 2022-0 2022- No [id number] .5mg Take 1 [facility] 0.5 mg 8-08 09-08 tablet by ity of tablet 00:00: 04:59 mouth in [place] 00 :00 the [facility] morning Branch for 30 days. bumetanide 2022-0 2022- No [id number] .5mg Take 1 [facility] 0.5 mg 8-08 09-08 tablet by ity of tablet 00:00: 04:59 mouth in [place] 00 :00 the [facility] morning Branch for 30 days. bumetanide 2022-0 2022- No [id number] .5mg Take 1 [facility] 0.5 mg 8-08 09-08 tablet by ity of tablet 00:00: 04:59 mouth in [place] 00 :00 the [facility] morning Branch for 30 days. bumetanide 2022-0 2022- No [id number] .5mg Take 1 [facility] 0.5 mg 8-08 09-08 tablet by ity of tablet 00:00: 04:59 mouth in [place] 00 :00 the [facility] morning Branch for 30 days. bumetanide 2023-0 3- No [id number] .5mg Take 1 [facility] 0.5 mg 8-08 09-08 tablet by ity of tablet 00:00: 04:59 mouth in [place] 00 :00 the [facility] morning Branch for 30 days. bumetanide 2022-0 2022- No [id number] .5mg Take 1 [facility] 0.5 mg 8-08 09-08 tablet by ity of tablet 00:00: 04:59 mouth in [place] 00 :00 the Medical morning Branch for 30 days. hydrOXYzine Yes 25mg 25 mg, Univ ers (ATARAX) 10-08 Oral, ity of tablet 25 23:15: I91QATH, [place] mg 00 Starting Medical on Sat Branch 10/08/22 at 1815, Until Discontinu ed, Anxiety, Itching baclofen 2022-0 Yes 5mg 5 mg, Univers (LIORESAL) 10-08 Oral, ity of tablet 5 mg 23:15: TIDPRN, [place] 00 Starting Medical on Sat Branch 10/08/22 at 1815, Until Discontinu ed, Routine, Muscle spasms ipratropium 2022-0 Yes 3mL 3 mL, Unive rs -albuteroL 10-08 Inhalation ity of (DUONEB) 23:00: , Q6H, [place] 0.5 mg-3 00 First dose Medic al mg(2.5 mg on Sat base)/3 mL 10/08/22 at nebulizer 1800, solution 3 Until mL Discontinu ed, Routine predniSONE 2022-0 2022- No 40mg 40 mg, Univ ers (DELTASONE) 10-08 08-12 Oral, ity of tablet 40 22:45: 13:59 DAILY, 5 [place] mg 00 :00 doses, Medical First dose Branch on Sat10/08/22 at 1745, Last dose on Sat10/12/22 at 0900, Routine Sliding 2022-0 Yes Subcutaneo Univ ers Scale 10-08 us, TID ity of Insulin - 22:00: MEALS+HS, [place] Lispro 00 First dose Medical (HumaLOG) on Sat Branch 10/08/22 at 1700, Until Discontinu ed, Routine glucagon 2022-0 Yes 1mg 1 mg, Univers (GLUCAGEN 10-08 Intramuscu ity of DIAGNOSTIC 19:58: lar, PRN, [place] KIT) 40 Starting Medical injection 1 on Sat Branch mg 10/08/22 at 1458, Until Discontinu ed, MARTHA, Blood Glucose < or = 70 mg/dL and patient is NPO, unable to swallow or has mental changes. dextrose 50 2022-0 Yes 25mL 25 mL, Univ ers % in water 10-08 Slow IV ity of (D50W) 19:58: Push, PRN, [place] injection 40 Starting Medica l 25 mL on Sat [place] 10/08/22 at 1458, Until Discontinu ed, MARTHA, [...] 50mg 50 mg, Unive rs (DESYREL) 10-07 Oral, QHS, ity of tablet 50 02:00: 22:41 First dose [place] mg 00 :01 on [facility] 10/06/22 at Branch 2100, Until Discontinu ed, Routine furosemide 2022- No 20mg 20 mg, IV U nivers (LASIX) 10-07 08-06 Push, ity of injection 01:00: 14:08 Q12H, [place] 20 mg 00 :19 First dose Medical (after Branch last modificati on) [facility] 10[facility]22 at 2000, Until Discontinu ed, Routine cefTRIAXone 2022-0 2022- No 1000mg 1,000 mg, Univers (ROCEPHIN) 10-06 08-10 IV ity of 1,000 mg in 22:00: 21:59 Piggyback, [place] NaCl 0.9% 00 :00 Q24H ABX, Medic al (NS) 100 mL 5 doses, Bran ch MINI-BAG First dose on Sat10/06/22 at 1700, Last dose on Sat10/10/22 at 1700, Administer over 30 Minutes, 100 mL
Reas on for Anti-Infec tive: Empiric Therapy for Suspected Infection< br>Empiric Therapy Site: Respirator y
Durat ion of therapy: 5 days spironolact 0 Yes 12.5mg 12.5 mg, Univers one 10-06 Oral, ity of (ALDACTONE) 17:45: DAILY, [place] tablet 12.5 00 First dose Me dical [facility] 10/06/22 at 1245, Until Discontinu ed, Routine acetaZOLAMI 0 Yes 250mg 250 mg, Un renetta DE (DIAMOX) 10-06 Oral, ity of tablet 250 17:45: DAILY, [place] mg 00 First dose Medical [facility] 10/06/22 at 1245, Until Discontinu ed, Routine NIFEdipine 2022-0 Yes 30mg 30 mg, Unive rs ER tablet 10-06 Oral, QAM, ity of 30 mg 14:00: First dose [place] 00 on [facility] Medical 10/06/22 at Branch 0900, Until Discontinu ed, Routine magnesium 2022-0 Yes 400mg 400 mg, Univ ers oxide 10-06 Oral, ity of (MAG-OX 14:00: DAILY, [place] 400) tablet 00 First dose Me dical 400 [facility] 10/06/22 at 0900, Until Discontinu ed ergocalcife 2022-0 Yes [id number] 50,000 Un renetta rol 10-06 Units, ity of (vitamin 14:00: Oral, [place] d2) 00 QWEEKLY, Medical (CALCIFEROL First dose Br anch ) capsule [facility]000 10/06/22 at Units 0900, Until Discontinu ed, Routine tamsulosin 2022-0 2022- No .4mg 0.4 mg, Uni vers (FLOMAX) 10-06 Oral, ity of capsule 0.4 14:00: 12:54 DAILY, [place] mg 00 :51 First dose Medical on [facility] 10/06/22 at 0900, Until Discontinu ed, Routine glipiZIDE 2022-0 Yes 2.5mg 2.5 mg, Univ ers XL 10-06 Oral, BID, ity of (GLUCOTROL 13:00: First dose [place] XL) tablet 00 on [facility] 2.5 mg 10/06/22 at Branch 0800, Until Discontinu ed, Routine budesonide 2022-0 Yes .5mg 0.5 mg, Univ ers (PULMICORT 10-06 Inhalation ity of RESPULE) 13:00: , BID, [place] nebulizer 00 First dose Medi christa solution on [facility] Branch 0.5 mg 10/06/22 at 0800, Until Discontinu ed, Routine baclofen 2022-0 2022- No 10mg 10 mg, Univer s (LIORESAL) 10-06 Oral, TID, it y of tablet 10 13:00: 23:13 First dose [place] mg 00 :56 on [facility] Medical 10/06/22 at Branch 0800, Until Discontinu ed, Routine levothyroxi 2022-0 Yes 150ug 150 mcg, U nivers ne 10-06 Oral, ity of (SYNTHROID) 11:00: QAM-0600, [place] tablet 150 00 First dose Med ical mcg on [facility] 10/06/22 at 0600, Until Discontinu ed, Routine baclofen 2022-0 2023- [...] at 2315, Until Discontinu ed, Routine HYDROcodone 2022-0 Yes 1{tbl} 1 tablet, Univers -acetaminop 10-06 Oral, ity of hen (NORCO) 03:33: Q6HPRN, [place] as 10-325 mg 26 Starting Medica l tablet 1 on Sat Branch tablet 10/05/22 at 2233, Until Discontinu ed, Routine, Pain (scale 4-6), Pain (scale 7-10) heparin 2022-0 Yes 5000U 5,000 Univers (porcine) 10-06 Units, ity of injection 03:00: Subcutaneo [place] 5,000 Units 00 us, Q8H, Medi christa First dose Branch on Sat10/05/22 at 2200, Until Discontinu ed, Routine hydrOXYzine 0 2022- No 25mg 25 mg, Uni vers (ATARAX) 10-06 08-07 Oral, Q8H, ity of tablet 25 03:00: 23:13 First dose [place] mg 00 :56 on Sat Medical 10/05/22 at Branch 2200, Until Discontinu ed ipratropium 0 Yes .5mg 0.5 mg, Uni vers (ATROVENT) 10-06 Inhalation ity of 0.02 % 02:45: , Q4HPRN, [place] nebulizer 34 Starting Medica l solution on [...] 10-06 Oral, ity of PERLES) 02:44: Q8HPRN, [place] capsule 100 58 Starting Medi christa mg [...] ed, Routine, Shortness of Breath, Wheezing furosemide 2022- No 40mg 40 mg, IV U nivers (LASIX) 10-06 Push, ity of injection 01:00: 17:35 Q12H, [place] 40 mg 00 :46 First dose Medical on Sat Branch 10/05/22 at 2000, Until Discontinu ed, Routine azithromyci 2022- No 500mg 500 mg, IV Univers n 10-05 0806 Piggyback, ity of (ZITHROMAX) 23:00: 21:14 Q24H ABX, [place] 500 mg in 00 :46 3 doses, [...] IV ity of succ 22:00: 21:18 Push, [place] (SOLU-MEDRO 00 :00 ONCE, 1 Medic al L) dose, On Branch injection 10/05/22 125 mg at 1700, MARTHA acetaminoph Yes 650mg 650 mg, Un renetta en 10-05 Oral, ity of (TYLENOL) 21:48: Q6HPRN, [place] tablet 650 27 Starting Medic al mg on Sat Branch 10/05/22 at 1648, Until Discontinu ed, Routine, Pain (scale 1-3) oxymetazoli Yes 1{puff} Use 1 Puff Univers ne HCl 10-05 in each ity of (AFRIN 21:46: nostril [place] NASAL) 20 every Medical other day. Branch Patient takes afrin over the counter, takes every other day cefTRIAXone 2022- No 1000mg 1,000 mg, Univers (ROCEPHIN) 10-05 IV ity of 1,000 mg in 21:45: 22:58 Piggyback, [place] NaCl 0.9% 00 :00 ONCE, 1 Medical [...] Sat10/05/22 Branch at 1445, MARTHA mirtazapine Yes [id number] 7.5mg Take 1 Univers 7.5 mg 7-31 tablet by ity of tablet 00:00: mouth at [place] 00 bedtime. Medical Branch mirtazapine Yes [id number] 7.5mg Take 1 [facility] 7.5 mg 7-31 tablet by ity of tablet 00:00: mouth at [place] 00 bedtime. Medical Branch mirtazapine Yes [id number] 7.5mg Take 1 [facility] 7.5 mg 7-31 tablet by ity of tablet 00:00: mouth at [place] 00 bedtime. Medical Branch mirtazapine Yes [id number] 7.5mg Take 1 [facility] 7.5 mg 7-31 tablet by ity of tablet 00:00: mouth at [place] [address] bedtime. Medical Branch mirtazapine 2022-0 Yes [id number] 7.5mg Take 1 [facility] 7.5 mg 7-31 tablet by ity of tablet 00:00: mouth at [place] [address] bedtime. Medical Branch mirtazapine 2022-0 Yes [id number] 7.5mg Take 1 [facility] 7.5 mg 7-31 tablet by ity of tablet 00:00: mouth at [place] [address] bedtime. Medical Branch mirtazapine 2022-0 Yes [id number] 7.5mg Take 1 [facility] 7.5 mg 7-31 tablet by ity of tablet 00:00: mouth at [place] [address] bedtime. Medical Branch mirtazapine 2022-0 Yes [id number] 7.5mg Take 1 [facility] 7.5 mg 7-31 tablet by ity of tablet 00:00: mouth at [place] [address] bedtime. Medical Branch mirtazapine 2022-0 Yes [id number] 7.5mg Take 1 [facility] 7.5 mg 7-31 tablet by ity of tablet 00:00: mouth at [place] [address] bedtime. Medical Branch mirtazapine 2022-0 Yes [id number] 7.5mg Take 1 [facility] 7.5 mg 7-31 tablet by ity of tablet 00:00: mouth at [place] [address] bedtime. Medical Branch mirtazapine 2022-0 Yes [id number] 7.5mg Take 1 [facility] 7.5 mg 7-31 tablet by ity of tablet 00:00: mouth at [place] [address] bedtime. Medical Branch mirtazapine 2022-0 Yes [id number] 7.5mg Take 1 [facility] 7.5 mg 7-31 tablet by ity of tablet 00:00: mouth at [place] [address] bedtime. Medical Branch mirtazapine 2022-0 Yes [id number] 7.5mg Take 1 Univers 7.5 mg 7-31 tablet by ity of tablet 00:00: mouth at [place] [address] bedtime. Medical Branch mirtazapine 2022-0 Yes [id number] 7.5mg Take 1 Univers 7.5 mg 7-31 tablet by ity of tablet 00:00: mouth at [place] [address] bedtime. Medical Branch mirtazapine 2022-0 Yes [id number] 7.5mg Take 1 [facility] 7.5 mg 7-31 tablet by ity of tablet 00:00: mouth at [place] [address] bedtime. Medical Branch mirtazapine 2022-0 Yes [id number] 7.5mg Take 1 [facility] 7.5 mg 7-31 tablet by ity of tablet 00:00: mouth at [place] [address] bedtime. Medical Branch mirtazapine 2022-0 Yes [id number] 7.5mg Take 1 [facility] 7.5 mg 7-31 tablet by ity of tablet 00:00: mouth at [place] [address] bedtime. Medical Branch mirtazapine 2022-0 Yes [id number] 7.5mg Take 1 Univers 7.5 mg 7-31 tablet by ity of tablet 00:00: mouth at [place] [address] bedtime. Medical Branch mirtazapine 2022-0 Yes [id number] 7.5mg Take 1 Univers 7.5 mg 7-31 tablet by ity of tablet 00:00: mouth at [place] [address] bedtime. Medical Branch mirtazapine 2022-0 Yes [id number] 7.5mg Take 1 Univers 7.5 mg 7-31 tablet by ity of tablet 00:00: mouth at [place] [address] bedtime. Medical Branch mirtazapine 2022-0 Yes [id number] 7.5mg Take 1 Univers 7.5 mg 7-31 tablet by ity of tablet 00:00: mouth at [place] [address] bedtime. Medical Branch mirtazapine 2022-0 Yes [id number] 7.5mg Take 1 Univers 7.5 mg 7-31 tablet by ity of tablet 00:00: mouth at [place] [address] bedtime. Medical Branch mirtazapine 2022-0 Yes [id number] 7.5mg Take 1 Univers 7.5 mg 7-31 tablet by ity of tablet 00:00: mouth at [place] [address] bedtime. Medical Branch mirtazapine 2022-0 Yes [id number] 7.5mg Take 1 Univers 7.5 mg 7-31 tablet by ity of tablet 00:00: mouth at [place] [address] bedtime. Medical Branch mirtazapine 2022-0 Yes [id number] 7.5mg Take 1 Univers 7.5 mg 7-31 tablet by ity of tablet 00:00: mouth at [place] [address] bedtime. Medical Branch mirtazapine 2022-0 Yes [id number] 7.5mg Take 1 [facility] 7.5 mg 7-31 tablet by ity of tablet 00:00: mouth at [place] [address] bedtime. Medical Branch mirtazapine 2022-0 Yes [id number] 7.5mg Take 1 Univers 7.5 mg 7-31 tablet by ity of tablet 00:00: mouth at [place] [address] bedtime. Medical Branch mirtazapine 2022-0 Yes [id number] 7.5mg Take 1 Univers 7.5 mg 7-31 tablet by ity of tablet 00:00: mouth at [place] [address] bedtime. Medical Branch mirtazapine 2022-0 Yes [id number] 7.5mg Take 1 [facility] 7.5 mg 7-31 tablet by ity of tablet 00:00: mouth at [place] [address] bedtime. Medical Branch mirtazapine 2022-0 Yes [id number] 7.5mg Take 1 [facility] 7.5 mg 7-31 tablet by ity of tablet 00:00: mouth at [place] [address] bedtime. Medical Branch mirtazapine 2022-0 Yes [id number] 7.5mg Take 1 [facility] 7.5 mg 7-31 tablet by ity of tablet 00:00: mouth at [place] [address] bedtime. Medical Branch mirtazapine 2022-0 Yes [id number] 7.5mg Take 1 Univers 7.5 mg 7-31 tablet by ity of tablet 00:00: mouth at [place] [address] bedtime. Medical Branch mirtazapine 2022-0 Yes [id number] 7.5mg Take 1 Univers 7.5 mg 7-31 tablet by ity of tablet 00:00: mouth at [place] [address] bedtime. Medical Branch mirtazapine 2022-0 Yes [id number] 7.5mg Take 1 Univers 7.5 mg 7-31 tablet by ity of tablet 00:00: mouth at [place] [address] bedtime. Medical Branch mirtazapine 2022-0 Yes [id number] 7.5mg Take 1 Univers 7.5 mg 7-31 tablet by ity of tablet 00:00: mouth at [place] [address] bedtime. Medical Branch mirtazapine 2022-0 Yes [id number] 7.5mg Take 1 Univers 7.5 mg 7-31 tablet by ity of tablet 00:00: mouth at [place] [address] bedtime. Medical Branch mirtazapine 2022-0 Yes [id number] 7.5mg Take 1 Univers 7.5 mg 7-31 tablet by ity of tablet 00:00: mouth at [place] [address] bedtime. Medical Branch mirtazapine 2022-0 Yes [id number] 7.5mg Take 1 Univers 7.5 mg 7-31 tablet by ity of tablet 00:00: mouth at [place] [address] bedtime. Medical Branch mirtazapine 2022-0 Yes [id number] 7.5mg Take 1 Univers 7.5 mg 7-31 tablet by ity of tablet 00:00: mouth at [place] [address] bedtime. Medical Branch mirtazapine 2022-0 Yes [id number] 7.5mg Take 1 [facility] 7.5 mg 7-31 tablet by ity of tablet 00:00: mouth at [place] [address] bedtime. Medical Branch mirtazapine 2022-0 Yes [id number] 7.5mg Take 1 [facility] 7.5 mg 7-31 tablet by ity of tablet 00:00: mouth at [place] [address] bedtime. Medical Branch mirtazapine 2022-0 Yes [id number] 7.5mg Take 1 Univers 7.5 mg 7-31 tablet by ity of tablet 00:00: mouth at [place] [address] bedtime. Medical Branch mirtazapine 2022-0 Yes [id number] 7.5mg Take 1 Univers 7.5 mg 7-31 tablet by ity of tablet 00:00: mouth at [place] [address] bedtime. Medical Branch mirtazapine 2022-0 Yes [id number] 7.5mg Take 1 Univers 7.5 mg 7-31 tablet by ity of tablet 00:00: mouth at [place] [address] bedtime. Medical Branch mirtazapine 2022-0 Yes [id number] 7.5mg Take 1 Univers 7.5 mg 7-31 tablet by ity of tablet 00:00: mouth at [place] [address] bedtime. Medical Branch mirtazapine 2022-0 Yes [id number] 7.5mg Take 1 Univers 7.5 mg 7-31 tablet by ity of tablet 00:00: mouth at [place] [address] bedtime. Medical Branch mirtazapine 2022-0 Yes [id number] 7.5mg Take 1 Univers 7.5 mg 7-31 tablet by ity of tablet 00:00: mouth at [place] [address] bedtime. Medical Branch mirtazapine 2022-0 Yes [id number] 7.5mg Take 1 Univers 7.5 mg 7-31 tablet by ity of tablet 00:00: mouth at [place] [address] bedtime. Medical Branch mirtazapine 2022-0 Yes [id number] 7.5mg Take 1 Univers 7.5 mg 7-31 tablet by ity of tablet 00:00: mouth at [place] [address] bedtime. Medical Branch mirtazapine 2022-0 Yes [id number] 7.5mg Take 1 Univers 7.5 mg 7-31 tablet by ity of tablet 00:00: mouth at [place] [address] bedtime. Medical Branch mirtazapine 2022-0 Yes [id number] 7.5mg Take 1 Univers 7.5 mg 7-31 tablet by ity of tablet 00:00: mouth at [place] [address] bedtime. Medical Branch mirtazapine 2022-0 Yes [id number] 7.5mg Take 1 Univers 7.5 mg 7-31 tablet by ity of tablet 00:00: mouth at [place] [address] bedtime. Medical Branch mirtazapine 2022-0 Yes [id number] 7.5mg Take 1 Univers 7.5 mg 7-31 tablet by ity of tablet 00:00: mouth at [place] [address] bedtime. Medical Branch mirtazapine 2022-0 Yes [id number] 7.5mg Take 1 Univers 7.5 mg 7-31 tablet by ity of tablet 00:00: mouth at [place] [address] bedtime. Medical Branch mirtazapine 2022-0 Yes [id number] 7.5mg Take 1 Univers 7.5 mg 7-31 tablet by ity of tablet 00:00: mouth at [place] [address] bedtime. Medical Branch mirtazapine 2022-0 Yes [id number] 7.5mg Take 1 Univers 7.5 mg 7-31 tablet by ity of tablet 00:00: mouth at [place] [address] bedtime. Medical Branch mirtazapine 2022-0 Yes [id number] 7.5mg Take 1 Univers 7.5 mg 7-31 tablet by ity of tablet 00:00: mouth at [place] [address] bedtime. Medical Branch mirtazapine 2022-0 Yes [id number] 7.5mg Take 1 Univers 7.5 mg 7-31 tablet by ity of tablet 00:00: mouth at [place] [address] bedtime. Medical Branch mirtazapine 2022-0 Yes [id number] 7.5mg Take 1 Univers 7.5 mg 7-31 tablet by ity of tablet 00:00: mouth at [place] [address] bedtime. Medical Branch mirtazapine 2022-0 Yes [id number] 7.5mg Take 1 Univers 7.5 mg 7-31 tablet by ity of tablet 00:00: mouth at [place] [address] bedtime. Medical Branch mirtazapine 2022-0 Yes [id number] 7.5mg Take 1 Univers 7.5 mg 7-31 tablet by ity of tablet 00:00: mouth at [place] [address] bedtime. Medical Branch mirtazapine 2022-0 Yes [id number] 7.5mg Take 1 Univers 7.5 mg 7-31 tablet by ity of tablet 00:00: mouth at [place] [address] bedtime. Medical Branch mirtazapine 2022-0 Yes [id number] 7.5mg Take 1 Univers 7.5 mg 7-31 tablet by ity of tablet 00:00: mouth at [place] [address] bedtime. Medical Branch mirtazapine 2022-0 Yes [id number] 7.5mg Take 1 Univers 7.5 mg 7-31 tablet by ity of tablet 00:00: mouth at [place] [address] bedtime. Medical Branch mirtazapine 2022-0 Yes [id number] 7.5mg Take 1 Univers 7.5 mg 7-31 tablet by ity of tablet 00:00: mouth at [place] [address] bedtime. Medical Branch mirtazapine 2022-0 Yes [id number] 7.5mg Take 1 Univers 7.5 mg 7-31 tablet by ity of tablet 00:00: mouth at [place] [address] bedtime. Medical Branch mirtazapine 2022-0 Yes [id number] 7.5mg Take 1 Univers 7.5 mg 7-31 tablet by ity of tablet 00:00: mouth at [place] [address] bedtime. Medical Branch mirtazapine 2022-0 Yes [id number] 7.5mg Take 1 Univers 7.5 mg 7-31 tablet by ity of tablet 00:00: mouth at [place] [address] bedtime. Medical Branch mirtazapine 2022-0 Yes [id number] 7.5mg Take 1 Univers 7.5 mg 7-31 tablet by ity of tablet 00:00: mouth at [place] 00 bedtime. Medical Branch mirtazapine 2022-0 Yes [id number] 7.5mg Take 1 Univers 7.5 mg 7-31 tablet by ity of tablet 00:00: mouth at [place] 00 bedtime. [facility] Branch mirtazapine 2022-0 Yes [id number] 7.5mg Take 1 Univers 7.5 mg 7-31 tablet by ity of tablet 00:00: mouth at [place] 00 bedtime. [facility] Branch mirtazapine 2022-0 Yes [id number] 7.5mg Take 1 Univers 7.5 mg 7-31 tablet by ity of tablet 00:00: mouth at [place] 00 bedtime. [facility] Branch mirtazapine 2022-0 Yes [id number] 7.5mg Take 1 Univers 7.5 mg 7-31 tablet by ity of tablet 00:00: mouth at [place] 00 bedtime. [facility] Branch mirtazapine 2022-0 Yes [id number] 7.5mg Take 1 Univers 7.5 mg 7-31 tablet by ity of tablet 00:00: mouth at [place] 00 bedtime. [facility] Branch predniSONE 0 Yes 40mg 40 mg, Unive rs (DELTASONE) 7-19 Oral, ity of tablet 40 14:00: DAILY, [place] mg 00 First dose Medical on Sat [place] 09/19/22 at 0900, Until Discontinu ed, Routine pravastatin 0 Yes 40mg 40 mg, Univ ers (PRAVACHOL) 7-19 Oral, QHS, it y of tablet 40 02:00: First dose [place] mg 00 on Sat [facility] 09/18/22 at Branch 2100, Until Discontinu ed, Routine predniSONE 2022- No [id number] 40mg Take 2 Univers 20 mg 09-19-24 tablets by ity of tablet 00:00: 04:59 mouth in [place] 00 :00 the Medical morning Branch for 4 days. predniSONE 2022-0 2022- No [id number] 40mg Take 2 Univers 20 mg 09-19-24 tablets by ity of tablet 00:00: 04:59 mouth in [place] 00 :00 the Medical morning Branch for [...]
Durat ion of therapy: 7 days oxymetazoli 2022-0 Yes 1{puff} Use 1 Puff [...] other day fluticasone 2022-0 Yes 2{spray 2 [place], Univers propionate 7-18 } Nasal, ity of 50 14:00: DAILY, [place] mcg/actuati 00 First dose Me dical on nasal on Sat Branch spray 2 09/18/22 at [place] 0900, Until Discontinu ed, Routine vitamin b 2022-0 Yes 1{tbl} 1 tablet, U nivers complex-vit 7-18 Oral, ity of rodriguez 14:00: DAILY, [place] c-folic 00 First dose Medica l acid on Sat [place] (NEPHRO-VIT 09/18/22 at E) 0.8 mg 0900, tablet 1 Until tablet Discontinu ed, Routine ergocalcife 2022-0 Yes [id number] 50,000 Un renetta rol 09-18 Units, ity of (vitamin 14:00: Oral, [place] d2) 00 QWEEKLY, Medical (CALCIFEROL First dose Br anch ) capsule on Sat 50,000 09/18/22 at Units 0900, Until Discontinu ed, Routine budesonide 2022-0 Yes .5mg 0.5 mg, [facility] ers (PULMICORT 09-18 Inhalation ity of RESPULE) 13:00: , BID, [place] nebulizer 00 First dose Medi christa solution on Sat 0.5 mg 09/18/22 at 0800, Until Discontinu ed, Routine tamsulosin 2022-0 Yes .4mg 0.4 mg, [facility] ers (FLOMAX) 09-18 Oral, BID, ity o f capsule 0.4 13:00: First dose [place] mg 00 on [facility] 09/18/22 at Branch 0800, Until Discontinu ed, Routine acetaminoph 2022-0 Yes 650mg 650 mg, Un renetta en 09-18 Oral, ity of (TYLENOL) 12:39: Q8HPRN, [place] tablet 650 55 Starting Medic al mg on Sat Branch 09/18/22 at 0739, Until Discontinu ed, Routine, Pain (scale 4-6), Pain (scale 1-3) levothyroxi 2022-0 Yes 150ug 150 mcg, U nivers ne 09-18 Oral, ity of (SYNTHROID) 11:00: QAM-0600, [place] tablet 150 00 First dose Med ical mcg on Branch 09/18/22 at 0600, Until Discontinu ed, Routine methylpredn 2022-0 2022- No 60mg 60 mg, Uni vers isolone sod 09-1818 Intravenou i ty of succ 11:00: 19:18 s, Q8H, 6 [place] (SOLU-MEDRO 00 :59 doses, Medica l L) First dose Branch injection on Tue 60 mg 09/18/22 at 0600, Last dose on Sat09/19/22 at 2200, 2 mL benzonatate 2022-0 Yes 100mg 100 mg, Un reentta (TESSALON 09-18 Oral, ity of PERLES) 10:03: Q8HPRN, [place] capsule 100 10 Starting Medi christa mg on Tue Branch 09/18/22 at 0503, Until Discontinu ed, Routine, Cough heparin 2022-0 Yes 5000U 5,000 Univers (porcine) 09-18 Units, ity of injection 03:00: Subcutaneo [place] 5,000 Units 00 us, Q8H, Medi christa First dose Branch on Sat09/17/22 at 2200, Until Discontinu ed, Routine Sliding 2022-0 Yes Subcutaneo Univ ers Scale 09-18 us, TID ity of Insulin - 02:00: MEALS+HS, [place] Lispro 00 First dose Medical (HumaLOG) on Sat Branch 09/17/22 at 2100, Until Discontinu ed, Routine ipratropium 2022-0 Yes 3mL 3 mL, Unive rs -albuteroL 09-18 Inhalation ity of (DUONEB) 01:00: , Q4H, [place] 0.5 mg-3 00 First dose Medic al mg(2.5 mg on Sat Branch base)/3 mL 09/17/22 at nebulizer 2000, solution 3 Until mL Discontinu ed, Routine azithromyci 2022-0 2022- No [id number] 500mg Take 1 [facility] n 500 mg 09-18 tablet by ity o f tablet 00:00: 04:59 mouth in [place] 00 :00 [facility] [place] for 2 days. azithromyci 2022-0 202- No [id number] 500mg Take 1 [facility] n 500 mg 09-18 tablet by ity o f tablet 00:00: 04:59 mouth in [place] 00 :00 [facility] for 2 days. azithromyci 2022-0 202- No 500mg 500 mg, IV Univers n 09-17 Piggyback, ity of (ZITHROMAX) 23:30: 03:15 [place]CE, 1 [place] 500 mg in 00 :00 dose, On Medica l NaCl 0.9% Sat (NS) 250 mL 09/17/22 at VIAL-MATE 1830, IV Administer piggyback over 60 Minutes, 250 mL
R clarissa for Anti-Infec tive: Empiric Therapy for Suspected Infection< br>Empiric Therapy Site: Respirator y
Durat ion of therapy: 7 days cefTRIAXone 2022- No 1000mg 1,000 mg, Univers (ROCEPHIN) 09-17 IV ity of 1,000 mg in 22:45: 22:44 Piggyback, [place] NaCl 0.9% 00 :00 Q24H [...] 40 Starting Medica l 25 mL on Mon [place] 09/17/22 at 1733, Until Discontinu ed, MARTHA, Blood Glucose < or = 70 mg/dL and patient is NPO, unable to swallow or has mental status changes. aspirin 2022-0 2022- No 324mg 324 mg, Unive rs chewable 09-17-17 Oral, ity of tablet 324 22:00: 23:46 ONCE, 1 [place] as mg 00 :00 dose, On [facility] 09/17/22 at 1700, Routine ipratropium 0 Yes [id number] 1{spray Use 1 [facility] 42 mcg 7-11 1 } [place] in ity of (0.06 %) 00:00: each [place] nasal spray 00 nostril in [facility] [place] morning and 1 [place] in the evening. ipratropium 2022- No [id number] 1{spray Use 1 [facility] 42 mcg 7-11 07-18 1 } [place] in ity of (0.06 %) 00:00: 00:00 each [place] nasal spray 00 :00 nostril in [facility] [place] morning and 1 [place] in the evening. albuterol 0 Yes [id number] 2.5mg Inhale 3 Univers 2.5 mg /3 6-19 mL every 6 ity of mL (0.083 00:00: (six) [place] %) 00 hours as Medical nebulizer needed for Bran ch solution Shortness of Breath or Wheezing. albuterol 0 Yes [id number] 2.5mg Inhale 3 Univers 2.5 mg /3 6-19 mL every 6 ity of mL (0.083 00:00: (six) [place] %) 00 hours as Medical nebulizer needed for Bran ch solution Shortness of Breath or Wheezing. albuterol 0 Yes [id number] 2.5mg Inhale 3 [facility] 2.5 mg /3 6-19 mL every 6 ity of mL (0.083 00:00: (six) [place] %) 00 hours as Medical nebulizer needed for Bran ch solution Shortness of Breath or Wheezing. albuterol 0 Yes [id number] 2.5mg Inhale 3 Univers 2.5 mg /3 6-19 mL every 6 ity of mL (0.083 00:00: (six) [place] %) 00 hours as Medical nebulizer needed for Bran ch solution Shortness of Breath or Wheezing. albuterol 2022-0 Yes [id number] 2.5mg Inhale 3 Univers 2.5 mg /3 6-19 mL every 6 ity of mL (0.083 00:00: (six) [place] %) 00 hours as Medical nebulizer needed for Bran ch solution Shortness of Breath or Wheezing. albuterol 2023-0 Yes [id number] 2.5mg Inhale 3 [facility] 2.5 mg /3 6-19 mL every 6 ity of mL (0.083 00:00: (six) [place] %) 00 hours as Medical nebulizer needed for Bran ch solution Shortness of Breath or Wheezing. albuterol 2023-0 Yes [id number] 2.5mg Inhale 3 Univers 2.5 mg /3 6-19 mL every 6 ity of mL (0.083 00:00: (six) [place] %) 00 hours as Medical nebulizer needed for Bran ch solution Shortness of Breath or Wheezing. albuterol 3-0 Yes [id number] 2.5mg Inhale 3 [facility] 2.5 mg /3 6-19 mL every 6 ity of mL (0.083 00:00: ([facility] [place] %) 00 hours as Medical nebulizer needed for Bran ch solution Shortness of Breath or Wheezing. albuterol 3-0 Yes [id number] 2.5mg Inhale 3 Univers 2.5 mg /3 6-19 mL every 6 ity of mL (0.083 00:00: ([facility] [place] %) 00 hours as Medical nebulizer needed for Bran ch solution Shortness of Breath or Wheezing. albuterol 2023-0 Yes [id number] 2.5mg Inhale 3 Univers 2.5 mg /3 6-19 mL every 6 ity of mL (0.083 00:00: (six) [place] %) 00 hours as Medical nebulizer needed for Bran ch solution Shortness of Breath or Wheezing. albuterol 2023-0 Yes [id number] 2.5mg Inhale 3 Univers 2.5 mg /3 6-19 mL every 6 ity of mL (0.083 00:00: (six) [place] %) 00 hours as Medical nebulizer needed for Bran ch solution Shortness of Breath or Wheezing. albuterol 2023-0 Yes [id number] 2.5mg Inhale 3 Univers 2.5 mg /3 6-19 mL every 6 ity of mL (0.083 00:00: (six) [place] %) 00 hours as Medical nebulizer needed for Bran ch solution Shortness of Breath or Wheezing. albuterol 2023-0 Yes [id number] 2.5mg Inhale 3 Univers 2.5 mg /3 6-19 mL every 6 ity of mL (0.083 00:00: (six) [place] %) 00 hours as Medical nebulizer needed for Bran ch solution Shortness of Breath or Wheezing. albuterol 2023-0 Yes [id number] 2.5mg Inhale 3 Univers 2.5 mg /3 6-19 mL every 6 ity of mL (0.083 00:00: (six) [place] %) 00 hours as Medical nebulizer needed for Bran ch solution Shortness of Breath or Wheezing. albuterol 2023-0 Yes [id number] 2.5mg Inhale 3 Univers 2.5 mg /3 6-19 mL every 6 ity of mL (0.083 00:00: (six) [place] %) 00 hours as Medical nebulizer needed for Bran ch solution Shortness of Breath or Wheezing. albuterol 2023-0 Yes [id number] 2.5mg Inhale 3 Univers 2.5 mg /3 6-19 mL every 6 ity of mL (0.083 00:00: (six) [place] %) 00 hours as Medical nebulizer needed for Bran ch solution Shortness of Breath or Wheezing. albuterol 2023-0 Yes [id number] 2.5mg Inhale 3 Univers 2.5 mg /3 6-19 mL every 6 ity of mL (0.083 00:00: (six) [place] %) 00 hours as Medical nebulizer needed for Bran ch solution Shortness of Breath or Wheezing. albuterol 2023-0 Yes [id number] 2.5mg Inhale 3 Univers 2.5 mg /3 6-19 mL every 6 ity of mL (0.083 00:00: (six) [place] %) 00 hours as Medical nebulizer needed for Bran ch solution Shortness of Breath or Wheezing. albuterol 2023-0 Yes [id number] 2.5mg Inhale 3 Univers 2.5 mg /3 6-19 mL every 6 ity of mL (0.083 00:00: (six) [place] %) 00 hours as Medical nebulizer needed for Bran ch solution Shortness of Breath or Wheezing. albuterol 3-0 Yes [id number] 2.5mg Inhale 3 Univers 2.5 mg /3 6-19 mL every 6 ity of mL (0.083 00:00: (six) [place] %) 00 hours as Medical nebulizer needed for Bran ch solution Shortness of Breath or Wheezing. albuterol 3-0 Yes [id number] 2.5mg Inhale 3 Univers 2.5 mg /3 6-19 mL every 6 ity of mL (0.083 00:00: (six) [place] %) 00 hours as Medical nebulizer needed for Bran ch solution Shortness of Breath or Wheezing. albuterol 2022-0 Yes [id number] 2.5mg Inhale 3 Univers 2.5 mg /3 6-19 mL every 6 ity of mL (0.083 00:00: (six) [place] %) 00 hours as Medical nebulizer needed for Bran ch solution Shortness of Breath or Wheezing. albuterol 2022-0 Yes [id number] 2.5mg Inhale 3 Univers 2.5 mg /3 6-19 mL every 6 ity of mL (0.083 00:00: (six) [place] %) 00 hours as Medical nebulizer needed for Bran ch solution Shortness of Breath or Wheezing. albuterol 2022-0 Yes [id number] 2.5mg Inhale 3 Univers 2.5 mg /3 6-19 mL every 6 ity of mL (0.083 00:00: (six) [place] %) 00 hours as Medical nebulizer needed for Bran ch solution Shortness of Breath or Wheezing. albuterol 3-0 Yes [id number] 2.5mg Inhale 3 Univers 2.5 mg /3 6-19 mL every 6 ity of mL (0.083 00:00: (six) [place] %) 00 hours as Medical nebulizer needed for Bran ch solution Shortness of Breath or Wheezing. albuterol 3-0 Yes [id number] 2.5mg Inhale 3 Univers 2.5 mg /3 6-19 mL every 6 ity of mL (0.083 00:00: (six) [place] %) 00 hours as Medical nebulizer needed for Bran ch solution Shortness of Breath or Wheezing. albuterol 3-0 Yes [id number] 2.5mg Inhale 3 [facility] 2.5 mg /3 6-19 mL every 6 ity of mL (0.083 00:00: ([facility] [place] %) 00 hours as Medical nebulizer needed for Bran ch solution Shortness of Breath or Wheezing. albuterol 3-0 Yes [id number] 2.5mg Inhale 3 Univers 2.5 mg /3 6-19 mL every 6 ity of mL (0.083 00:00: ([facility]) [place] %) 00 hours as Medical nebulizer needed for Bran ch solution Shortness of Breath or Wheezing. albuterol 3-0 Yes [id number] 2.5mg Inhale 3 [facility] 2.5 mg /3 6-19 mL every 6 ity of mL (0.083 00:00: ([facility]) [place] %) 00 hours as Medical nebulizer needed for Bran ch solution Shortness of Breath or Wheezing. albuterol 2022-0 Yes [id number] 2.5mg Inhale 3 [facility] 2.5 mg /3 6-19 mL every 6 ity of mL (0.083 00:00: ([facility]) [place] %) 00 hours as Medical nebulizer needed for Bran ch solution Shortness of Breath or Wheezing. albuterol 2022-0 Yes [id number] 2.5mg Inhale 3 Univers 2.5 mg /3 6-19 mL every 6 ity of mL (0.083 00:00: (six) [place] %) 00 hours as Medical nebulizer needed for Bran ch solution Shortness of Breath or Wheezing. albuterol 2022-0 Yes [id number] 2.5mg Inhale 3 Univers 2.5 mg /3 6-19 mL every 6 ity of mL (0.083 00:00: (six) [place] %) 00 hours as Medical nebulizer needed for Bran ch solution Shortness of Breath or Wheezing. albuterol 3-0 Yes [id number] 2.5mg Inhale 3 Univers 2.5 mg /3 6-19 mL every 6 ity of mL (0.083 00:00: (six) [place] %) 00 hours as Medical nebulizer needed for Bran ch solution Shortness of Breath or Wheezing. albuterol 3-0 Yes [id number] 2.5mg Inhale 3 Univers 2.5 mg /3 6-19 mL every 6 ity of mL (0.083 00:00: (six) [place] %) 00 hours as Medical nebulizer needed for Bran ch solution Shortness of Breath or Wheezing. albuterol 2023-0 Yes [id number] 2.5mg Inhale 3 Univers 2.5 mg /3 6-19 mL every 6 ity of mL (0.083 00:00: (six) [place] %) 00 hours as Medical nebulizer needed for Bran ch solution Shortness of Breath or Wheezing. albuterol 2023-0 Yes [id number] 2.5mg Inhale 3 Univers 2.5 mg /3 6-19 mL every 6 ity of mL (0.083 00:00: (six) [place] %) 00 hours as Medical nebulizer needed for Bran ch solution Shortness of Breath or Wheezing. albuterol 3-0 Yes [id number] 2.5mg Inhale 3 [facility] 2.5 mg /3 6-19 mL every 6 ity of mL (0.083 00:00: ([facility]) [place] %) 00 hours as Medical nebulizer needed for Bran ch solution Shortness of Breath or Wheezing. albuterol 3-0 Yes [id number] 2.5mg Inhale 3 Univers 2.5 mg /3 6-19 mL every 6 ity of mL (0.083 00:00: (six) [place] %) 00 hours as Medical nebulizer needed for Bran ch solution Shortness of Breath or Wheezing. albuterol 2023-0 Yes [id number] 2.5mg Inhale 3 Univers 2.5 mg /3 6-19 mL every 6 ity of mL (0.083 00:00: (six) [place] %) 00 hours as Medical nebulizer needed for Bran ch solution Shortness of Breath or Wheezing. albuterol 2023-0 Yes [id number] 2.5mg Inhale 3 Univers 2.5 mg /3 6-19 mL every 6 ity of mL (0.083 00:00: (six) [place] %) 00 hours as Medical nebulizer needed for Bran ch solution Shortness of Breath or Wheezing. albuterol 2023-0 Yes [id number] 2.5mg Inhale 3 Univers 2.5 mg /3 6-19 mL every 6 ity of mL (0.083 00:00: (six) [place] %) 00 hours as Medical nebulizer needed for Bran ch solution Shortness of Breath or Wheezing. albuterol 2023-0 Yes [id number] 2.5mg Inhale 3 Univers 2.5 mg /3 6-19 mL every 6 ity of mL (0.083 00:00: (six) [place] %) 00 hours as Medical nebulizer needed for Bran ch solution Shortness of Breath or Wheezing. albuterol 2023-0 Yes [id number] 2.5mg Inhale 3 Univers 2.5 mg /3 6-19 mL every 6 ity of mL (0.083 00:00: (six) [place] %) 00 hours as Medical nebulizer needed for Bran ch solution Shortness of Breath or Wheezing. albuterol 2023-0 Yes [id number] 2.5mg Inhale 3 Univers 2.5 mg /3 6-19 mL every 6 ity of mL (0.083 00:00: ([facility]) [place] %) 00 hours as Medical nebulizer needed for Bran ch solution Shortness of Breath or Wheezing. albuterol 2023-0 Yes [id number] 2.5mg Inhale 3 Univers 2.5 mg /3 6-19 mL every 6 ity of mL (0.083 00:00: (six) [place] %) 00 hours as Medical nebulizer needed for Bran ch solution Shortness of Breath or Wheezing. albuterol 2023-0 Yes [id number] 2.5mg Inhale 3 Univers 2.5 mg /3 6-19 mL every 6 ity of mL (0.083 00:00: (six) [place] %) 00 hours as Medical nebulizer needed for Bran ch solution Shortness of Breath or Wheezing. albuterol 2023-0 Yes [id number] 2.5mg Inhale 3 Univers 2.5 mg /3 6-19 mL every 6 ity of mL (0.083 00:00: (six) [place] %) 00 hours as Medical nebulizer needed for Bran ch solution Shortness of Breath or Wheezing. albuterol 2023-0 Yes [id number] 2.5mg Inhale 3 Univers 2.5 mg /3 6-19 mL every 6 ity of mL (0.083 00:00: (six) [place] %) 00 hours as Medical nebulizer needed for Bran ch solution Shortness of Breath or Wheezing. albuterol 3-0 Yes [id number] 2.5mg Inhale 3 Univers 2.5 mg /3 6-19 mL every 6 ity of mL (0.083 00:00: (six) [place] %) 00 hours as Medical nebulizer needed for Bran ch solution Shortness of Breath or Wheezing. albuterol 3-0 Yes [id number] 2.5mg Inhale 3 Univers 2.5 mg /3 6-19 mL every 6 ity of mL (0.083 00:00: (six) [place] %) 00 hours as Medical nebulizer needed for Bran ch solution Shortness of Breath or Wheezing. albuterol 3-0 Yes [id number] 2.5mg Inhale 3 Univers 2.5 mg /3 6-19 mL every 6 ity of mL (0.083 00:00: (six) [place] %) 00 hours as Medical nebulizer needed for Bran ch solution Shortness of Breath or Wheezing. albuterol 2022-0 Yes [id number] 2.5mg Inhale 3 Univers 2.5 mg /3 6-19 mL every 6 ity of mL (0.083 00:00: (six) [place] %) 00 hours as Medical nebulizer needed for Bran ch solution Shortness of Breath or Wheezing. albuterol 2022-0 Yes [id number] 2.5mg Inhale 3 Univers 2.5 mg /3 6-19 mL every 6 ity of mL (0.083 00:00: (six) [place] %) 00 hours as Medical nebulizer needed for Bran ch solution Shortness of Breath or Wheezing. albuterol 3-0 Yes [id number] 2.5mg Inhale 3 Univers 2.5 mg /3 6-19 mL every 6 ity of mL (0.083 00:00: (six) [place] %) 00 hours as Medical nebulizer needed for Bran ch solution Shortness of Breath or Wheezing. albuterol 3-0 Yes [id number] 2.5mg Inhale 3 Univers 2.5 mg /3 6-19 mL every 6 ity of mL (0.083 00:00: (six) [place] %) 00 hours as Medical nebulizer needed for Bran ch solution Shortness of Breath or Wheezing. albuterol 3-0 Yes [id number] 2.5mg Inhale 3 Univers 2.5 mg /3 6-19 mL every 6 ity of mL (0.083 00:00: ([facility]) [place] %) 00 hours as Medical nebulizer needed for Bran ch solution Shortness of Breath or Wheezing. albuterol 3-0 Yes [id number] 2.5mg Inhale 3 Univers 2.5 mg /3 6-19 mL every 6 ity of mL (0.083 00:00: ([facility]) [place] %) 00 hours as Medical nebulizer needed for Bran ch solution Shortness of Breath or Wheezing. albuterol 3-0 Yes [id number] 2.5mg Inhale 3 Univers 2.5 mg /3 6-19 mL every 6 ity of mL (0.083 00:00: ([facility]) [place] %) 00 hours as Medical nebulizer needed for Bran ch solution Shortness of Breath or Wheezing. albuterol 2022-0 Yes [id number] 2.5mg Inhale 3 Univers 2.5 mg /3 6-19 mL every 6 ity of mL (0.083 00:00: ([facility]) [place] %) 00 hours as Medical nebulizer needed for Bran ch solution Shortness of Breath or Wheezing. albuterol 2022-0 Yes [id number] 2.5mg Inhale 3 Univers 2.5 mg /3 6-19 mL every 6 ity of mL (0.083 00:00: (six) [place] %) 00 hours as Medical nebulizer needed for Bran ch solution Shortness of Breath or Wheezing. albuterol 3-0 Yes [id number] 2.5mg Inhale 3 Univers 2.5 mg /3 6-19 mL every 6 ity of mL (0.083 00:00: (six) [place] %) 00 hours as Medical nebulizer needed for Bran ch solution Shortness of Breath or Wheezing. albuterol 3-0 Yes [id number] 2.5mg Inhale 3 Univers 2.5 mg /3 6-19 mL every 6 ity of mL (0.083 00:00: (six) [place] %) 00 hours as Medical nebulizer needed for Bran ch solution Shortness of Breath or Wheezing. albuterol 3-0 Yes [id number] 2.5mg Inhale 3 Univers 2.5 mg /3 6-19 mL every 6 ity of mL (0.083 00:00: (six) [place] %) 00 hours as Medical nebulizer needed for Bran ch solution Shortness of Breath or Wheezing. albuterol 2023-0 Yes [id number] 2.5mg Inhale 3 Univers 2.5 mg /3 6-19 mL every 6 ity of mL (0.083 00:00: (six) [place] %) 00 hours as Medical nebulizer needed for Bran ch solution Shortness of Breath or Wheezing. albuterol 2023-0 Yes [id number] 2.5mg Inhale 3 Univers 2.5 mg /3 6-19 mL every 6 ity of mL (0.083 00:00: (six) [place] %) 00 hours as Medical nebulizer needed for Bran ch solution Shortness of Breath or Wheezing. albuterol 2023-0 Yes [id number] 2.5mg Inhale 3 [facility] 2.5 mg /3 6-19 mL every 6 ity of mL (0.083 00:00: ([facility]) [place] %) 00 hours as Medical nebulizer needed for Bran ch solution Shortness of Breath or Wheezing. albuterol 2023-0 Yes [id number] 2.5mg Inhale 3 Univers 2.5 mg /3 6-19 mL every 6 ity of mL (0.083 00:00: (six) [place] %) 00 hours as Medical nebulizer needed for Bran ch solution Shortness of Breath or Wheezing. albuterol 2023-0 Yes [id number] 2.5mg Inhale 3 Univers 2.5 mg /3 6-19 mL every 6 ity of mL (0.083 00:00: (six) [place] %) 00 hours as Medical nebulizer needed for Bran ch solution Shortness of Breath or Wheezing. albuterol 2023-0 Yes [id number] 2.5mg Inhale 3 [facility] 2.5 mg /3 6-19 mL every 6 ity of mL (0.083 00:00: (six) [place] %) 00 hours as Medical nebulizer needed for Bran ch solution Shortness of Breath or Wheezing. albuterol 2023-0 Yes [id number] 2.5mg Inhale 3 Univers 2.5 mg /3 6-19 mL every 6 ity of mL (0.083 00:00: (six) [place] %) 00 hours as Medical nebulizer needed for Bran ch solution Shortness of Breath or Wheezing. albuterol 2023-0 Yes [id number] 2.5mg Inhale 3 [facility] 2.5 mg /3 6-19 mL every 6 ity of mL (0.083 00:00: (six) [place] %) 00 hours as Medical nebulizer needed for Bran ch solution Shortness of Breath or Wheezing. albuterol 2023-0 Yes [id number] 2.5mg Inhale 3 Univers 2.5 mg /3 6-19 mL every 6 ity of mL (0.083 00:00: (six) [place] %) 00 hours as Medical nebulizer needed for Bran ch solution Shortness of Breath or Wheezing. albuterol 2023-0 Yes [id number] 2.5mg Inhale 3 [facility] 2.5 mg /3 6-19 mL every 6 ity of mL (0.083 00:00: ([facility]) [place] %) 00 hours as Medical nebulizer needed for Bran ch solution Shortness of Breath or Wheezing. albuterol 2023-0 Yes [id number] 2.5mg Inhale 3 [facility] 2.5 mg /3 6-19 mL every 6 ity of mL (0.083 00:00: ([facility]) [place] %) 00 hours as Medical nebulizer needed for Bran ch solution Shortness of Breath or Wheezing. albuterol 2023-0 Yes [id number] 2.5mg Inhale 3 Univers 2.5 mg /3 6-19 mL every 6 ity of mL (0.083 00:00: (six) [place] %) 00 hours as Medical nebulizer needed for Bran ch solution Shortness of Breath or Wheezing. albuterol 2023-0 Yes [id number] 2.5mg Inhale 3 Univers 2.5 mg /3 6-19 mL every 6 ity of mL (0.083 00:00: (six) [place] %) 00 hours as Medical nebulizer needed for Bran ch solution Shortness of Breath or Wheezing. albuterol 2023-0 Yes [id number] 2.5mg Inhale 3 [facility] 2.5 mg /3 6-19 mL every 6 ity of mL (0.083 00:00: ([facility]) [place] %) 00 hours as Medical nebulizer needed for Bran ch solution Shortness of Breath or Wheezing. albuterol 2022-0 Yes [id number] 2.5mg Inhale 3 Univers 2.5 mg /3 6-19 mL every 6 ity of mL (0.083 00:00: (six) [place] %) 00 hours as Medical nebulizer needed for Bran ch solution Shortness of Breath or Wheezing. albuterol 2022-0 Yes [id number] 2.5mg Inhale 3 [facility] 2.5 mg /3 6-19 mL every 6 ity of mL (0.083 00:00: (six) [place] %) 00 hours as Medical nebulizer needed for Bran ch solution Shortness of Breath or Wheezing. albuterol 2022-0 Yes [id number] 2.5mg Inhale 3 [facility] 2.5 mg /3 6-19 mL every 6 ity of mL (0.083 00:00: (six) [place] %) 00 hours as Medical nebulizer needed for Bran ch solution Shortness of Breath or Wheezing. albuterol 2022-0 Yes [id number] 2.5mg Inhale 3 [facility] 2.5 mg /3 6-19 mL every 6 ity of mL (0.083 00:00: (six) [place] %) 00 hours as Medical nebulizer needed for Bran ch solution Shortness of Breath or Wheezing. albuterol 0 3- No [id number] 2.5mg Inhale 3 Univers 2.5 mg /3 6-19 06-19 mL every 6 ity of mL (0.083 00:00: 00:00 (six) [place] %) 00 :00 hours as Medical nebulizer needed for Bran ch solution Shortness of Breath or Wheezing. BACLOFEN 10 2022-0 Yes [id number] TAKE ONE [facility] mg tablet 4-19 TABLET BY ity o f 00:00: MOUTH [place] 00 THREE Medical TIMES A Branch DAY NEEDED FOR PAIN BACLOFEN 10 2022-0 Yes [id number] TAKE ONE [facility] mg tablet 4-19 TABLET BY ity o f 00:00: MOUTH [place] 00 THREE Medical TIMES A Branch DAY NEEDED FOR PAIN BACLOFEN 10 2022-0 Yes [id number] TAKE ONE [facility] mg tablet 4-19 TABLET BY ity o f 00:00: MOUTH [place] 00 THREE Medical TIMES A Branch DAY NEEDED FOR PAIN BACLOFEN 10 2022-0 Yes [id number] TAKE ONE [facility] mg tablet 4-19 TABLET BY ity o f 00:00: MOUTH [place] 00 THREE Medical TIMES A Branch DAY NEEDED FOR PAIN BACLOFEN 10 2023-0 Yes [id number] TAKE ONE [facility] mg tablet 4-19 TABLET BY ity o f 00:00: MOUTH [place] 00 THREE Medical TIMES A Branch DAY NEEDED FOR PAIN BACLOFEN 10 2023-0 Yes [id number] TAKE ONE [facility] mg tablet 4-19 TABLET BY ity o f 00:00: MOUTH [place] 00 THREE Medical TIMES A Branch DAY NEEDED FOR PAIN BACLOFEN 10 3-0 Yes [id number] TAKE ONE [facility] mg tablet 4-19 TABLET BY ity o f 00:00: MOUTH [place] 00 THREE Medical TIMES A Branch DAY NEEDED FOR PAIN BACLOFEN 10 3-0 Yes [id number] TAKE ONE [facility] mg tablet 4-19 TABLET BY ity o f 00:00: MOUTH [place] 00 THREE Medical TIMES A Branch DAY NEEDED FOR PAIN BACLOFEN 10 3-0 Yes [id number] TAKE ONE [facility] mg tablet 4-19 TABLET BY ity o f 00:00: MOUTH [place] 00 THREE Medical TIMES A Branch DAY NEEDED FOR PAIN BACLOFEN 10 3-0 Yes [id number] TAKE ONE [facility] mg tablet 4-19 TABLET BY ity o f 00:00: MOUTH [place] 00 THREE Medical TIMES A Branch DAY NEEDED FOR PAIN BACLOFEN 10 3-0 Yes [id number] TAKE ONE [facility] mg tablet 4-19 TABLET BY ity o f 00:00: MOUTH [place] 00 THREE Medical TIMES A Branch DAY NEEDED FOR PAIN BACLOFEN 10 3-0 Yes [id number] TAKE ONE [facility] mg tablet 4-19 TABLET BY ity o f 00:00: MOUTH [place] 00 THREE Medical TIMES A Branch DAY NEEDED FOR PAIN BACLOFEN 10 2023-0 Yes [id number] TAKE ONE [facility] mg tablet 4-19 TABLET BY ity o f 00:00: MOUTH [place] 00 THREE Medical TIMES A Branch DAY NEEDED FOR PAIN BACLOFEN 10 2023-0 Yes [id number] TAKE ONE [facility] mg tablet 4-19 TABLET BY ity o f 00:00: MOUTH [place] 00 THREE Medical TIMES A Branch DAY NEEDED FOR PAIN BACLOFEN 10 2023-0 Yes [id number] TAKE ONE [facility] mg tablet 4-19 TABLET BY ity o f 00:00: MOUTH [place] 00 THREE Medical TIMES A Branch DAY NEEDED FOR PAIN BACLOFEN 10 2023-0 Yes [id number] TAKE ONE [facility] mg tablet 4-19 TABLET BY ity o f 00:00: MOUTH [place] 00 THREE Medical TIMES A Branch DAY NEEDED FOR PAIN BACLOFEN 10 2022-0 Yes [id number] TAKE ONE [facility] mg tablet 4-19 TABLET BY ity o f 00:00: MOUTH [place] 00 THREE Medical TIMES A Branch DAY NEEDED FOR PAIN BACLOFEN 10 2022-0 2023- No [id number] TAKE ONE [facility] mg tablet 4-19 08-08 TABLET BY ity of 00:00: 00:00 MOUTH [place] 00 :00 THREE Medical TIMES A Branch DAY NEEDED FOR PAIN ERGOCALCIFE 2023-0 Yes [id number] TAKE 1 [facility] ROL, 4-03 CAPSULE BY ity of VITAMIN D2, 00:00: MOUTH ONCE [place] 1,250 mcg 00 A WEEK Medical (50,000 Branch unit) capsule ERGOCALCIFE 2023-0 Yes [id number] TAKE 1 [facility] ROL, 4-03 CAPSULE BY ity of VITAMIN D2, 00:00: MOUTH ONCE [place] 1,250 mcg 00 A WEEK Medical (50,000 Branch unit) capsule ERGOCALCIFE 2023-0 Yes [id number] TAKE 1 [facility] ROL, 4-03 CAPSULE BY ity of VITAMIN D2, 00:00: MOUTH ONCE [place] 1,250 mcg 00 A WEEK Medical (50,000 Branch unit) capsule ERGOCALCIFE 2023-0 Yes [id number] TAKE 1 [facility] ROL, 4-03 CAPSULE BY ity of VITAMIN D2, 00:00: MOUTH ONCE [place] 1,250 mcg 00 A WEEK Medical (50,000 Branch unit) capsule ERGOCALCIFE 2023-0 Yes [id number] TAKE 1 [facility] ROL, 4-03 CAPSULE BY ity of VITAMIN D2, 00:00: MOUTH ONCE [place] 1,250 mcg 00 A WEEK Medical (50,000 Branch unit) capsule ERGOCALCIFE 2023-0 Yes [id number] TAKE 1 [facility] ROL, 4-03 CAPSULE BY ity of VITAMIN D2, 00:00: MOUTH ONCE [place] 1,250 mcg 00 A WEEK Medical (50,000 Branch unit) capsule ERGOCALCIFE 2023-0 Yes [id number] TAKE 1 [facility] ROL, 4-03 CAPSULE BY ity of VITAMIN D2, 00:00: MOUTH ONCE [place] 1,250 mcg 00 A WEEK Medical (50,000 Branch unit) capsule ERGOCALCIFE 2023-0 Yes [id number] TAKE 1 [facility] R[facility], 4-03 CAPSULE BY ity of VITAMIN D2, 00:00: MOUTH ONCE [place] 1,250 mcg 00 A WEEK [facility] (50,000 Branch unit) capsule ERGOCALCIFE 2023-0 Yes [id number] TAKE 1 [facility] R[facility], 4-03 CAPSULE BY [facility] of VITAMIN D2, 00:00: MOUTH ONCE [place] 1,250 mcg 00 A WEEK [facility] (50,000 Branch unit) capsule ERGOCALCIFE 2023-0 Yes [id number] TAKE 1 [facility] R[facility], 4-03 CAPSULE BY ity of VITAMIN D2, 00:00: MOUTH ONCE [place] 1,250 mcg 00 A WEEK Medical (50,000 Branch unit) capsule ERGOCALCIFE 2023-0 Yes [id number] TAKE 1 [facility] ROL, 4-03 CAPSULE BY ity of VITAMIN D2, 00:00: MOUTH ONCE [place] 1,250 mcg 00 A WEEK [facility] (50,000 Branch unit) capsule ERGOCALCIFE 2023-0 Yes [id number] TAKE 1 [facility] ROL, 4-03 CAPSULE BY ity of VITAMIN D2, 00:00: MOUTH ONCE [place] 1,250 mcg 00 A WEEK Medical (50,000 Branch unit) capsule ERGOCALCIFE 2023-0 Yes [id number] TAKE 1 [facility] ROL, 4-03 CAPSULE BY ity of VITAMIN D2, 00:00: MOUTH ONCE [place] 1,250 mcg 00 A WEEK Medical (50,000 Branch unit) capsule ERGOCALCIFE 2023-0 Yes [id number] TAKE 1 [facility] ROL, 4-03 CAPSULE BY ity of VITAMIN D2, 00:00: MOUTH ONCE [place] 1,250 mcg 00 A WEEK Medical (50,000 Branch unit) capsule ERGOCALCIFE 2023-0 Yes [id number] TAKE 1 [facility] ROL, 4-03 CAPSULE BY ity of VITAMIN D2, 00:00: MOUTH ONCE [place] 1,250 mcg 00 A WEEK Medical (50,000 Branch unit) capsule ERGOCALCIFE 2023-0 Yes [id number] TAKE 1 [facility] ROL, 4-03 CAPSULE BY ity of VITAMIN D2, 00:00: MOUTH ONCE [place] 1,250 mcg 00 A WEEK Medical (50,000 Branch unit) capsule ERGOCALCIFE 2023-0 Yes [id number] TAKE 1 [facility] ROL, 4-03 CAPSULE BY ity of VITAMIN D2, 00:00: MOUTH ONCE [place] 1,250 mcg 00 A WEEK Medical (50,000 Branch unit) capsule ERGOCALCIFE 2023-0 Yes [id number] TAKE 1 [facility] ROL, 4-03 CAPSULE BY ity of VITAMIN D2, 00:00: MOUTH ONCE [place] 1,250 mcg 00 A WEEK Medical (50,000 Branch unit) capsule ERGOCALCIFE 2023-0 Yes [id number] TAKE 1 [facility] ROL, 4-03 CAPSULE BY ity of VITAMIN D2, 00:00: MOUTH ONCE [place] 1,250 mcg 00 A WEEK Medical (50,000 Branch unit) capsule ERGOCALCIFE 2023-0 Yes [id number] TAKE 1 [facility] ROL, 4-03 CAPSULE BY ity of VITAMIN D2, 00:00: MOUTH ONCE [place] 1,250 mcg 00 A WEEK Medical (50,000 Branch unit) capsule ERGOCALCIFE 2023-0 Yes [id number] TAKE 1 [facility] ROL, 4-03 CAPSULE BY ity of VITAMIN D2, 00:00: MOUTH ONCE [place] 1,250 mcg 00 A WEEK Medical (50,000 Branch unit) capsule ERGOCALCIFE 2023-0 Yes [id number] TAKE 1 [facility] ROL, 4-03 CAPSULE BY ity of VITAMIN D2, 00:00: MOUTH ONCE [place] 1,250 mcg 00 A WEEK Medical (50,000 Branch unit) capsule ERGOCALCIFE 2023-0 Yes [id number] TAKE 1 [facility] ROL, 4-03 CAPSULE BY ity of VITAMIN D2, 00:00: MOUTH ONCE [place] 1,250 mcg 00 A WEEK Medical (50,000 Branch unit) capsule ERGOCALCIFE 2023-0 Yes [id number] TAKE 1 [facility] ROL, 4-03 CAPSULE BY ity of VITAMIN D2, 00:00: MOUTH ONCE [place] 1,250 mcg 00 A WEEK Medical (50,000 Branch unit) capsule ERGOCALCIFE 2023-0 Yes [id number] TAKE 1 [facility] ROL, 4-03 CAPSULE BY ity of VITAMIN D2, 00:00: MOUTH ONCE [place] 1,250 mcg 00 A WEEK Medical (50,000 Branch unit) capsule ERGOCALCIFE 2023-0 Yes [id number] TAKE 1 [facility] ROL, 4-03 CAPSULE BY ity of VITAMIN D2, 00:00: MOUTH ONCE [place] 1,250 mcg 00 A WEEK Medical (50,000 Branch unit) capsule ERGOCALCIFE 2023-0 Yes [id number] TAKE 1 [facility] ROL, 4-03 CAPSULE BY ity of VITAMIN D2, 00:00: MOUTH ONCE [place] 1,250 mcg 00 A WEEK Medical (50,000 Branch unit) capsule ERGOCALCIFE 2023-0 Yes [id number] TAKE 1 [facility] ROL, 4-03 CAPSULE BY ity of VITAMIN D2, 00:00: MOUTH ONCE [place] 1,250 mcg 00 A WEEK Medical (50,000 Branch unit) capsule ERGOCALCIFE 2023-0 Yes [id number] TAKE 1 [facility] ROL, 4-03 CAPSULE BY ity of VITAMIN D2, 00:00: MOUTH ONCE [place] 1,250 mcg 00 A WEEK Medical (50,000 Branch unit) capsule ERGOCALCIFE 2023-0 Yes [id number] TAKE 1 [facility] ROL, 4-03 CAPSULE BY ity of VITAMIN D2, 00:00: MOUTH ONCE [place] 1,250 mcg 00 A WEEK Medical (50,000 Branch unit) capsule ERGOCALCIFE 2023-0 Yes [id number] TAKE 1 [facility] ROL, 4-03 CAPSULE BY ity of VITAMIN D2, 00:00: MOUTH ONCE [place] 1,250 mcg 00 A WEEK Medical (50,000 Branch unit) capsule ERGOCALCIFE 2023-0 Yes [id number] TAKE 1 [facility] ROL, 4-03 CAPSULE BY ity of VITAMIN D2, 00:00: MOUTH ONCE [place] 1,250 mcg 00 A WEEK Medical (50,000 Branch unit) capsule ERGOCALCIFE 2023-0 Yes [id number] TAKE 1 [facility] ROL, 4-03 CAPSULE BY ity of VITAMIN D2, 00:00: MOUTH ONCE [place] 1,250 mcg 00 A WEEK Medical (50,000 Branch unit) capsule ERGOCALCIFE 2023-0 Yes [id number] TAKE 1 [facility] ROL, 4-03 CAPSULE BY ity of VITAMIN D2, 00:00: MOUTH ONCE [place] 1,250 mcg 00 A WEEK Medical (50,000 Branch unit) capsule ERGOCALCIFE 2023-0 Yes [id number] TAKE 1 [facility] ROL, 4-03 CAPSULE BY ity of VITAMIN D2, 00:00: MOUTH ONCE [place] 1,250 mcg 00 A WEEK Medical (50,000 Branch unit) capsule ERGOCALCIFE 2023-0 Yes [id number] TAKE 1 [facility] ROL, 4-03 CAPSULE BY ity of VITAMIN D2, 00:00: MOUTH ONCE [place] 1,250 mcg 00 A WEEK Medical (50,000 Branch unit) capsule ERGOCALCIFE 2023-0 Yes [id number] TAKE 1 [facility] ROL, 4-03 CAPSULE BY ity of VITAMIN D2, 00:00: MOUTH ONCE [place] 1,250 mcg 00 A WEEK Medical (50,000 Branch unit) capsule ERGOCALCIFE 2023-0 Yes [id number] TAKE 1 [facility] ROL, 4-03 CAPSULE BY ity of VITAMIN D2, 00:00: MOUTH ONCE [place] 1,250 mcg 00 A WEEK Medical (50,000 Branch unit) capsule ERGOCALCIFE 2023-0 Yes [id number] TAKE 1 [facility] ROL, 4-03 CAPSULE BY ity of VITAMIN D2, 00:00: MOUTH ONCE [place] 1,250 mcg 00 A WEEK Medical (50,000 Branch unit) capsule ERGOCALCIFE 2023-0 Yes [id number] TAKE 1 [facility] ROL, 4-03 CAPSULE BY ity of VITAMIN D2, 00:00: MOUTH ONCE [place] 1,250 mcg 00 A WEEK Medical (50,000 Branch unit) capsule ERGOCALCIFE 2023-0 Yes [id number] TAKE 1 [facility] ROL, 4-03 CAPSULE BY ity of VITAMIN D2, 00:00: MOUTH ONCE [place] 1,250 mcg 00 A WEEK Medical (50,000 Branch unit) capsule ERGOCALCIFE 2023-0 Yes [id number] TAKE 1 [facility] ROL, 4-03 CAPSULE BY ity of VITAMIN D2, 00:00: MOUTH ONCE [place] 1,250 mcg 00 A WEEK Medical (50,000 Branch unit) capsule ERGOCALCIFE 2023-0 Yes [id number] TAKE 1 [facility] ROL, 4-03 CAPSULE BY ity of VITAMIN D2, 00:00: MOUTH ONCE [place] 1,250 mcg 00 A WEEK Medical (50,000 Branch unit) capsule ERGOCALCIFE 2023-0 Yes [id number] TAKE 1 [facility] ROL, 4-03 CAPSULE BY ity of VITAMIN D2, 00:00: MOUTH ONCE [place] 1,250 mcg 00 A WEEK Medical (50,000 Branch unit) capsule ERGOCALCIFE 2023-0 Yes [id number] TAKE 1 [facility] ROL, 4-03 CAPSULE BY ity of VITAMIN D2, 00:00: MOUTH ONCE [place] 1,250 mcg 00 A WEEK Medical (50,000 Branch unit) capsule ERGOCALCIFE 2023-0 Yes [id number] TAKE 1 [facility] ROL, 4-03 CAPSULE BY ity of VITAMIN D2, 00:00: MOUTH ONCE [place] 1,250 mcg 00 A WEEK Medical (50,000 Branch unit) capsule ERGOCALCIFE 2023-0 Yes [id number] TAKE 1 [facility] ROL, 4-03 CAPSULE BY ity of VITAMIN D2, 00:00: MOUTH ONCE [place] 1,250 mcg 00 A WEEK Medical (50,000 Branch unit) capsule ERGOCALCIFE 2023-0 Yes [id number] TAKE 1 [facility] ROL, 4-03 CAPSULE BY ity of VITAMIN D2, 00:00: MOUTH ONCE [place] 1,250 mcg 00 A WEEK Medical (50,000 Branch unit) capsule ERGOCALCIFE 2023-0 Yes [id number] TAKE 1 [facility] ROL, 4-03 CAPSULE BY ity of VITAMIN D2, 00:00: MOUTH ONCE [place] 1,250 mcg 00 A WEEK Medical (50,000 Branch unit) capsule ERGOCALCIFE 2023-0 Yes [id number] TAKE 1 [facility] ROL, 4-03 CAPSULE BY ity of VITAMIN D2, 00:00: MOUTH ONCE [place] 1,250 mcg 00 A WEEK Medical (50,000 Branch unit) capsule ERGOCALCIFE 2023-0 Yes [id number] TAKE 1 [facility] ROL, 4-03 CAPSULE BY ity of VITAMIN D2, 00:00: MOUTH ONCE [place] 1,250 mcg 00 A WEEK Medical (50,000 Branch unit) capsule ERGOCALCIFE 2023-0 Yes [id number] TAKE 1 [facility] ROL, 4-03 CAPSULE BY ity of VITAMIN D2, 00:00: MOUTH ONCE [place] 1,250 mcg 00 A WEEK Medical (50,000 Branch unit) capsule ERGOCALCIFE 2023-0 Yes [id number] TAKE 1 [facility] ROL, 4-03 CAPSULE BY ity of VITAMIN D2, 00:00: MOUTH ONCE [place] 1,250 mcg 00 A WEEK Medical (50,000 Branch unit) capsule ERGOCALCIFE 2023-0 Yes [id number] TAKE 1 [facility] ROL, 4-03 CAPSULE BY ity of VITAMIN D2, 00:00: MOUTH ONCE [place] 1,250 mcg 00 A WEEK Medical (50,000 Branch unit) capsule ERGOCALCIFE 2023-0 Yes [id number] TAKE 1 [facility] ROL, 4-03 CAPSULE BY ity of VITAMIN D2, 00:00: MOUTH ONCE [place] 1,250 mcg 00 A WEEK Medical (50,000 Branch unit) capsule ERGOCALCIFE 2023-0 Yes [id number] TAKE 1 [facility] ROL, 4-03 CAPSULE BY ity of VITAMIN D2, 00:00: MOUTH ONCE [place] 1,250 mcg 00 A WEEK Medical (50,000 Branch unit) capsule ERGOCALCIFE 2023-0 Yes [id number] TAKE 1 [facility] ROL, 4-03 CAPSULE BY ity of VITAMIN D2, 00:00: MOUTH ONCE [place] 1,250 mcg 00 A WEEK Medical (50,000 Branch unit) capsule ERGOCALCIFE 2023-0 Yes [id number] TAKE 1 [facility] ROL, 4-03 CAPSULE BY ity of VITAMIN D2, 00:00: MOUTH ONCE [place] 1,250 mcg 00 A WEEK Medical (50,000 Branch unit) capsule ERGOCALCIFE 2023-0 Yes [id number] TAKE 1 [facility] ROL, 4-03 CAPSULE BY ity of VITAMIN D2, 00:00: MOUTH ONCE [place] 1,250 mcg 00 A WEEK Medical (50,000 Branch unit) capsule ERGOCALCIFE 2023-0 Yes [id number] TAKE 1 [facility] ROL, 4-03 CAPSULE BY ity of VITAMIN D2, 00:00: MOUTH ONCE [place] 1,250 mcg 00 A WEEK Medical (50,000 Branch unit) capsule ERGOCALCIFE 2023-0 Yes [id number] TAKE 1 [facility] ROL, 4-03 CAPSULE BY ity of VITAMIN D2, 00:00: MOUTH ONCE [place] 1,250 mcg 00 A WEEK Medical (50,000 Branch unit) capsule ERGOCALCIFE 2023-0 Yes [id number] TAKE 1 [facility] ROL, 4-03 CAPSULE BY ity of VITAMIN D2, 00:00: MOUTH ONCE [place] 1,250 mcg 00 A WEEK Medical (50,000 Branch unit) capsule ERGOCALCIFE 2023-0 Yes [id number] TAKE 1 [facility] ROL, 4-03 CAPSULE BY ity of VITAMIN D2, 00:00: MOUTH ONCE [place] 1,250 mcg 00 A WEEK Medical (50,000 Branch unit) capsule ERGOCALCIFE 2023-0 Yes [id number] TAKE 1 [facility] ROL, 4-03 CAPSULE BY ity of VITAMIN D2, 00:00: MOUTH ONCE [place] 1,250 mcg 00 A WEEK Medical (50,000 Branch unit) capsule ERGOCALCIFE 2023-0 Yes [id number] TAKE 1 [facility] ROL, 4-03 CAPSULE BY ity of VITAMIN D2, 00:00: MOUTH ONCE [place] 1,250 mcg 00 A WEEK Medical (50,000 Branch unit) capsule ERGOCALCIFE 2023-0 Yes [id number] TAKE 1 [facility] ROL, 4-03 CAPSULE BY ity of VITAMIN D2, 00:00: MOUTH ONCE [place] 1,250 mcg 00 A WEEK Medical (50,000 Branch unit) capsule ERGOCALCIFE 2023-0 Yes [id number] TAKE 1 [facility] ROL, 4-03 CAPSULE BY ity of VITAMIN D2, 00:00: MOUTH ONCE [place] 1,250 mcg 00 A WEEK Medical (50,000 Branch unit) capsule ERGOCALCIFE 2023-0 Yes [id number] TAKE 1 [facility] ROL, 4-03 CAPSULE BY ity of VITAMIN D2, 00:00: MOUTH ONCE [place] 1,250 mcg 00 A WEEK Medical (50,000 Branch unit) capsule ERGOCALCIFE 2023-0 Yes [id number] TAKE 1 [facility] ROL, 4-03 CAPSULE BY ity of VITAMIN D2, 00:00: MOUTH ONCE [place] 1,250 mcg 00 A WEEK Medical (50,000 Branch unit) capsule ERGOCALCIFE 2023-0 Yes [id number] TAKE 1 [facility] ROL, 4-03 CAPSULE BY ity of VITAMIN D2, 00:00: MOUTH ONCE [place] 1,250 mcg 00 A WEEK Medical (50,000 Branch unit) capsule ERGOCALCIFE 2023-0 Yes [id number] TAKE 1 [facility] ROL, 4-03 CAPSULE BY ity of VITAMIN D2, 00:00: MOUTH ONCE [place] 1,250 mcg 00 A WEEK Medical (50,000 Branch unit) capsule ERGOCALCIFE 2023-0 Yes [id number] TAKE 1 [facility] ROL, 4-03 CAPSULE BY ity of VITAMIN D2, 00:00: MOUTH ONCE [place] 1,250 mcg 00 A WEEK Medical (50,000 Branch unit) capsule ERGOCALCIFE 2023-0 Yes [id number] TAKE 1 [facility] ROL, 4-03 CAPSULE BY ity of VITAMIN D2, 00:00: MOUTH ONCE [place] 1,250 mcg 00 A WEEK Medical (50,000 Branch unit) capsule ERGOCALCIFE 2023-0 Yes [id number] TAKE 1 [facility] ROL, 4-03 CAPSULE BY ity of VITAMIN D2, 00:00: MOUTH ONCE [place] 1,250 mcg 00 A WEEK Medical (50,000 Branch unit) capsule ERGOCALCIFE 2023-0 Yes [id number] TAKE 1 [facility] ROL, 4-03 CAPSULE BY ity of VITAMIN D2, 00:00: MOUTH ONCE [place] 1,250 mcg 00 A WEEK Medical (50,000 Branch unit) capsule ERGOCALCIFE 2023-0 Yes [id number] TAKE 1 [facility] ROL, 4-03 CAPSULE BY ity of VITAMIN D2, 00:00: MOUTH ONCE [place] 1,250 mcg 00 A WEEK Medical (50,000 Branch unit) capsule ERGOCALCIFE 2023-0 Yes [id number] TAKE 1 [facility] ROL, 4-03 CAPSULE BY ity of VITAMIN D2, 00:00: MOUTH ONCE [place] 1,250 mcg 00 A WEEK Medical (50,000 Branch unit) capsule ERGOCALCIFE 2023-0 Yes [id number] TAKE 1 [facility] ROL, 4-03 CAPSULE BY ity of VITAMIN D2, 00:00: MOUTH ONCE [place] 1,250 mcg 00 A WEEK Medical (50,000 Branch unit) capsule ERGOCALCIFE 2023-0 Yes [id number] TAKE 1 [facility] ROL, 4-03 CAPSULE BY ity of VITAMIN D2, 00:00: MOUTH ONCE [place] 1,250 mcg 00 A WEEK Medical (50,000 Branch unit) capsule ERGOCALCIFE 2023-0 Yes [id number] TAKE 1 [facility] ROL, 4-03 CAPSULE BY ity of VITAMIN D2, 00:00: MOUTH ONCE [place] 1,250 mcg 00 A WEEK Medical (50,000 Branch unit) capsule ERGOCALCIFE 2023-0 Yes [id number] TAKE 1 [facility] ROL, 4-03 CAPSULE BY ity of VITAMIN D2, 00:00: MOUTH ONCE [place] 1,250 mcg 00 A WEEK Medical (50,000 Branch unit) capsule ERGOCALCIFE 2023-0 Yes [id number] TAKE 1 [facility] ROL, 4-03 CAPSULE BY ity of VITAMIN D2, 00:00: MOUTH ONCE [place] 1,250 mcg 00 A WEEK Medical (50,000 Branch unit) capsule ERGOCALCIFE 2023-0 Yes [id number] TAKE 1 [facility] ROL, 4-03 CAPSULE BY ity of VITAMIN D2, 00:00: MOUTH ONCE [place] 1,250 mcg 00 A WEEK Medical (50,000 Branch unit) capsule predniSONE 2023-0 Yes [id number] 5mg Take 1 [facility] 5 mg tablet 2-09 tablet by ity of 00:00: mouth in [place] 00 the Medical morning. Branch predniSONE 2023-0 Yes [id number] 5mg Take 1 [facility] 5 mg tablet 2-09 tablet by ity of 00:00: mouth in [place] 00 the Medical morning. Branch predniSONE 2023-0 Yes [id number] 5mg Take 1 [facility] 5 mg tablet 2-09 tablet by ity of 00:00: mouth in [place] 00 the Medical morning. Branch predniSONE 2023-0 Yes [id number] 5mg Take 1 [facility] 5 mg tablet 2-09 tablet by ity of 00:00: mouth in [place] 00 the Medical morning. Branch predniSONE 2023-0 Yes [id number] 5mg Take 1 [facility] 5 mg tablet 2-09 tablet by ity of 00:00: mouth in [place] 00 the Medical morning. Branch predniSONE 2023-0 Yes [id number] 5mg Take 1 [facility] 5 mg tablet 2-09 tablet by ity of 00:00: mouth in [place] 00 the Medical morning. Branch predniSONE 2023-0 Yes [id number] 5mg Take 1 [facility] 5 mg tablet 2-09 tablet by ity of 00:00: mouth in [place] 00 the Medical morning. Branch predniSONE 2023-0 Yes [id number] 5mg Take 1 [facility] 5 mg tablet 2-09 tablet by ity of 00:00: mouth in [place] 00 the Medical morning. Branch predniSONE 2023-0 Yes [id number] 5mg Take 1 [facility] 5 mg tablet 2-09 tablet by ity of 00:00: mouth in [place] 00 the Medical morning. Branch predniSONE 2023-0 Yes [id number] 5mg Take 1 [facility] 5 mg tablet 2-09 tablet by ity of 00:00: mouth in [place] 00 the Medical morning. Branch predniSONE 2023-0 Yes [id number] 5mg Take 1 [facility] 5 mg tablet 2-09 tablet by ity of 00:00: mouth in [place] 00 the Medical morning. Branch predniSONE 2023-0 Yes [id number] 5mg Take 1 [facility] 5 mg tablet 2-09 tablet by ity of 00:00: mouth in [place] 00 the Medical morning. Branch predniSONE 2023-0 Yes [id number] 5mg Take 1 [facility] 5 mg tablet 2-09 tablet by ity of 00:00: mouth in [place] 00 the Medical morning. Branch predniSONE 2023-0 Yes [id number] 5mg Take 1 [facility] 5 mg tablet 2-09 tablet by ity of 00:00: mouth in [place] 00 the Medical morning. Branch predniSONE 2023-0 Yes [id number] 5mg Take 1 [facility] 5 mg tablet 2-09 tablet by ity of 00:00: mouth in [place] 00 the Medical morning. Branch predniSONE 2023-0 2023- No [id number] 5mg Take 1 [facility] 5 mg tablet 2-09 07-18 tablet by it y of 00:00: 00:00 mouth in [place] 00 :00 the Medical morning. Branch benzonatate 2023-0 Yes [id number] 100mg Take 1 [facility] (TESSALON 1-09 capsule by ity of PERLES) 100 00:00: mouth [place] mg capsule 00 every 8 Medica l (eight) Branch hours as needed for Cough. benzonatate 2022-0 Yes [id number] 100mg Take 1 [facility] (TESSALON 1-09 capsule by ity of PERLES) 100 00:00: mouth [place] mg capsule 00 every 8 Medica l (eight) Branch hours as needed for Cough. benzonatate 2022-0 Yes [id number] 100mg Take 1 [facility] (TESSALON 1-09 capsule by ity of PERLES) 100 00:00: mouth [place] mg capsule 00 every 8 Medica l (eight) Branch hours as needed for Cough. benzonatate 2022-0 Yes [id number] 100mg Take 1 [facility] (TESSALON 1-09 capsule by ity of PERLES) 100 00:00: mouth [place] mg capsule 00 every 8 Medica l (eight) Branch hours as needed for Cough. benzonatate 2022-0 Yes [id number] 100mg Take 1 [facility] (TESSALON 1-09 capsule by ity of PERLES) 100 00:00: mouth [place] mg capsule 00 every 8 Medica l (eight) Branch hours as needed for Cough. benzonatate 2022-0 Yes [id number] 100mg Take 1 [facility] (TESSALON 1-09 capsule by ity of PERLES) 100 00:00: mouth [place] mg capsule 00 every 8 Medica l (eight) Branch hours as needed for Cough. benzonatate 2022-0 Yes [id number] 100mg Take 1 [facility] (TESSALON 1-09 capsule by ity of PERLES) 100 00:00: mouth [place] mg capsule 00 every 8 Medica l (eight) Branch hours as needed for Cough. benzonatate 2022-0 Yes [id number] 100mg Take 1 [facility] (TESS[place]ON 1-09 capsule by ity of PERLES) 100 00:00: mouth [place] mg capsule 00 every 8 Medica l (eight) Branch hours as needed for Cough. benzonatate 2022-0 Yes [id number] 100mg Take 1 [facility] (TESSALON 1-09 capsule by ity of PERLES) 100 00:00: mouth [place] mg capsule 00 every 8 Medica l (eight) Branch hours as needed for Cough. benzonatate 2022-0 Yes [id number] 100mg Take 1 [facility] (TESSALON 1-09 capsule by ity of PERLES) 100 00:00: mouth [place] mg capsule 00 every 8 Medica l (eight) Branch hours as needed for Cough. benzonatate 2022-0 Yes [id number] 100mg Take 1 [facility] (TESSALON 1-09 capsule by ity of PERLES) 100 00:00: mouth [place] mg capsule 00 every 8 Medica l (eight) Branch hours as needed for Cough. benzonatate 2022-0 Yes [id number] 100mg Take 1 [facility] (TESS[place]ON 1-09 capsule by ity of PERLES) 100 00:00: mouth [place] mg capsule 00 every 8 Medica l (eight) Branch hours as needed for Cough. benzonatate 0 Yes [id number] 100mg Take 1 [facility] (TESSALON 1-09 capsule by ity of PERLES) 100 00:00: mouth [place] mg capsule 00 every 8 Medica l (eight) Branch hours as needed for Cough. benzonatate 2022-0 Yes [id number] 100mg Take 1 [facility] (TESS[place]ON 1-09 capsule by ity of PERLES) 100 00:00: mouth [place] mg capsule 00 every 8 Medica l (eight) Branch hours as needed for Cough. benzonatate 2022-0 Yes [id number] 100mg Take 1 [facility] (TESS[place]ON 1-09 capsule by ity of PERLES) 100 00:00: mouth [place] mg capsule 00 every 8 Medica l (eight) Branch hours as needed for Cough. benzonatate 2022-0 Yes [id number] 100mg Take 1 [facility] ([place]ESS[place] 1-09 capsule by ity of PERLES) 100 00:00: mouth [place] mg capsule 00 every 8 Medica l (eight) Branch hours as needed for Cough. benzonatate 2022-0 Yes [id number] 100mg Take 1 [facility] ([place]ESS[place] 1-09 capsule by ity of PERLES) 100 00:00: mouth [place] mg capsule 00 every 8 Medica l (eight) Branch hours as needed for Cough. benzonatate 2022-0 Yes [id number] 100mg Take 1 [facility] ([place]ESS[place] 1-09 capsule by ity of PERLES) 100 00:00: mouth [place] mg capsule 00 every 8 Medica l (eight) Branch hours as needed for Cough. benzonatate 2023-0 Yes [id number] 100mg Take 1 [facility] ([place]ESS[place] 1-09 capsule by ity of PERLES) 100 00:00: mouth [place] mg capsule 00 every 8 Medica l (eight) Branch hours as needed for Cough. benzonatate 2022-0 Yes [id number] 100mg Take 1 [facility] ([place]ESS[place] 1-09 capsule by ity of PERLES) 100 00:00: mouth [place] mg capsule 00 every 8 Medica l (eight) Branch hours as needed for Cough. benzonatate 2022-0 Yes [id number] 100mg Take 1 [facility] ([place]ESS[place] 1-09 capsule by ity of PERLES) 100 00:00: mouth [place] mg capsule 00 every 8 Medica l (eight) Branch hours as needed for Cough. benzonatate 2022-0 Yes [id number] 100mg Take 1 [facility] ([place]ESS[place] 1-09 capsule by ity of PERLES) 100 00:00: mouth [place] mg capsule 00 every 8 Medica l (eight) Branch hours as needed for Cough. benzonatate 2022-0 Yes [id number] 100mg Take 1 [facility] ([place]ESS[place] 1-09 capsule by ity of PERLES) 100 00:00: mouth [place] mg capsule 00 every 8 Medica l (eight) Branch hours as needed for Cough. benzonatate 2022-0 Yes [id number] 100mg Take 1 [facility] (TESS[place] 1-09 capsule by ity of PERLES) 100 00:00: mouth [place] mg capsule 00 every 8 Medica l (eight) Branch hours as needed for Cough. benzonatate 2022-0 Yes [id number] 100mg Take 1 [facility] ([place]ESS[place] 1-09 capsule by ity of PERLES) 100 00:00: mouth [place] mg capsule 00 every 8 Medica l (eight) Branch hours as needed for Cough. benzonatate 3-0 Yes [id number] 100mg Take 1 [facility] ([place]ESS[place] 1-09 capsule by ity of PERLES) 100 00:00: mouth [place] mg capsule 00 every 8 Medica l (eight) Branch hours as needed for Cough. benzonatate 2022-0 Yes [id number] 100mg Take 1 [facility] ([place]ESS[place] 1-09 capsule by ity of PERLES) 100 00:00: mouth [place] mg capsule 00 every 8 Medica l (eight) Branch hours as needed for Cough. benzonatate 2022-0 Yes [id number] 100mg Take 1 [facility] ([place]ESS[place] 1-09 capsule by ity of PERLES) 100 00:00: mouth [place] mg capsule 00 every 8 Medica l (eight) Branch hours as needed for Cough. benzonatate 2022-0 Yes [id number] 100mg Take 1 [facility] ([place]ESS[place] 1-09 capsule by ity of PERLES) 100 00:00: mouth [place] mg capsule 00 every 8 Medica l (eight) Branch hours as needed for Cough. benzonatate 2022-0 Yes [id number] 100mg Take 1 [facility] ([place]ESS[place] 1-09 capsule by ity of PERLES) 100 00:00: mouth [place] mg capsule 00 every 8 Medica l (eight) Branch hours as needed for Cough. benzonatate 2022-0 Yes [id number] 100mg Take 1 [facility] ([place]ESS[place] 1-09 capsule by ity of PERLES) 100 00:00: mouth [place] mg capsule 00 every 8 Medica l (eight) Branch hours as needed for Cough. benzonatate 2022-0 Yes [id number] 100mg Take 1 [facility] ([place]ESS[place] 1-09 capsule by ity of PERLES) 100 00:00: mouth [place] mg capsule 00 every 8 Medica l (eight) Branch hours as needed for Cough. benzonatate 2022-0 Yes [id number] 100mg Take 1 [facility] ([place]ESS[place] 1-09 capsule by ity of PERLES) 100 00:00: mouth [place] mg capsule 00 every 8 Medica l (eight) Branch hours as needed for Cough. benzonatate 2022-0 Yes [id number] 100mg Take 1 [facility] ([place]ESS[place] 1-09 capsule by ity of PERLES) 100 00:00: mouth [place] mg capsule 00 every 8 Medica l (eight) Branch hours as needed for Cough. benzonatate 2022-0 Yes [id number] 100mg Take 1 [facility] ([place] 1-09 capsule by ity of PERLES) 100 00:00: mouth [place] mg capsule 00 every 8 Medica l (eight) Branch hours as needed for Cough. benzonatate 2022-0 Yes [id number] 100mg Take 1 [facility] ([place] 1-09 capsule by ity of PERLES) 100 00:00: mouth [place] mg capsule 00 every 8 Medica l (eight) Branch hours as needed for Cough. benzonatate 3-0 Yes [id number] 100mg Take 1 [facility] ([place]ESS[place] 1-09 capsule by ity of PERLES) 100 00:00: mouth [place] mg capsule 00 every 8 Medica l (eight) Branch hours as needed for Cough. benzonatate 2022-0 Yes [id number] 100mg Take 1 [facility] ([place] 1-09 capsule by ity of PERLES) 100 00:00: mouth [place] mg capsule 00 every 8 Medica l (eight) Branch hours as needed for Cough. benzonatate 2022-0 Yes [id number] 100mg Take 1 [facility] ([place] 1-09 capsule by ity of PERLES) 100 00:00: mouth [place] mg capsule 00 every 8 Medica l (eight) Branch hours as needed for Cough. benzonatate 2022-0 Yes [id number] 100mg Take 1 [facility] ([place] 1-09 capsule by ity of PERLES) 100 00:00: mouth [place] mg capsule 00 every 8 Medica l (eight) Branch hours as needed for Cough. benzonatate 2022-0 Yes [id number] 100mg Take 1 [facility] ([place] 1-09 capsule by ity of PERLES) 100 00:00: mouth [place] mg capsule 00 every 8 Medica l (eight) Branch hours as needed for Cough. benzonatate 2022-0 Yes [id number] 100mg Take 1 [facility] ([place]ESS[place] 1-09 capsule by ity of PERLES) 100 00:00: mouth [place] mg capsule 00 every 8 Medica l (eight) Branch hours as needed for Cough. benzonatate 2022-0 Yes [id number] 100mg Take 1 [facility] ([place]ESS[place] 1-09 capsule by ity of PERLES) 100 00:00: mouth [place] mg capsule 00 every 8 Medica l (eight) Branch hours as needed for Cough. benzonatate 3-0 Yes [id number] 100mg Take 1 [facility] ([facility] 1-09 capsule by [facility]) 100 00:00: mouth [place] mg capsule 00 every 8 [facility] (eight) Branch hours as needed for Cough. benzonatate 2022-0 Yes [id number] 100mg Take 1 [facility] ([facility] 1-09 capsule by [facility]) 100 00:00: mouth [place] mg capsule 00 every 8 [facility] (eight) Branch hours as needed for Cough. benzonatate 2022-0 Yes [id number] 100mg Take 1 [facility] ([facility] 1-09 capsule by [facility]) 100 00:00: mouth [place] mg capsule 00 every 8 [facility] (eight) Branch hours as needed for Cough. benzonatate 2022-0 Yes [id number] 100mg Take 1 [facility] ([facility] 1-09 capsule by [facility]) 100 00:00: mouth [place] mg capsule 00 every 8 [facility] (eight) Branch hours as needed for Cough. benzonatate 2022-0 Yes [id number] 100mg Take 1 [facility] ([facility] 1-09 capsule by [facility] of [facility]) 100 00:00: mouth [place] mg capsule 00 every 8 [facility] (eight) Branch hours as needed for Cough. benzonatate 2022-0 Yes [id number] 100mg Take 1 [facility] ([facility] 1-09 capsule by [facility]) 100 00:00: mouth [place] mg capsule 00 every 8 [facility] (eight) Branch hours as needed for Cough. benzonatate 2022-0 Yes [id number] 100mg Take 1 [facility] ([facility] 1-09 capsule by [facility]) 100 00:00: mouth [place] mg capsule 00 every 8 [facility] (eight) Branch hours as needed for Cough. benzonatate 2022-0 Yes [id number] 100mg Take 1 [facility] (TESSALON 1-09 capsule by ity of PERLES) 100 00:00: mouth [place] mg capsule 00 every 8 Medica l (eight) Branch hours as needed for Cough. benzonatate 2022-0 Yes [id number] 100mg Take 1 [facility] (TESSALON 1-09 capsule by ity of PERLES) 100 00:00: mouth [place] mg capsule 00 every 8 Medica l (eight) Branch hours as needed for Cough. benzonatate 2022-0 Yes [id number] 100mg Take 1 [facility] (TESSALON 1-09 capsule by ity of PERLES) 100 00:00: mouth [place] mg capsule 00 every 8 Medica l (eight) Branch hours as needed for Cough. benzonatate 2022-0 Yes [id number] 100mg Take 1 [facility] (TESSALON 1-09 capsule by ity of PERLES) 100 00:00: mouth [place] mg capsule 00 every 8 Medica l (eight) Branch hours as needed for Cough. benzonatate 2022-0 Yes [id number] 100mg Take 1 [facility] (TESSALON 1-09 capsule by ity of PERLES) 100 00:00: mouth [place] mg capsule 00 every 8 Medica l (eight) Branch hours as needed for Cough. benzonatate 2022-0 Yes [id number] 100mg Take 1 [facility] (TESSALON 1-09 capsule by ity of PERLES) 100 00:00: mouth [place] mg capsule 00 every 8 Medica l (eight) Branch hours as needed for Cough. benzonatate 2022-0 Yes [id number] 100mg Take 1 [facility] (TESSALON 1-09 capsule by ity of PERLES) 100 00:00: mouth [place] mg capsule 00 every 8 Medica l (eight) Branch hours as needed for Cough. benzonatate 2022-0 Yes [id number] 100mg Take 1 [facility] (TESSALON 1-09 capsule by ity of PERLES) 100 00:00: mouth [place] mg capsule 00 every 8 Medica l (eight) Branch hours as needed for Cough. benzonatate 2022-0 Yes [id number] 100mg Take 1 [facility] (TESSALON 1-09 capsule by ity of PERLES) 100 00:00: mouth [place] mg capsule 00 every 8 Medica l (eight) Branch hours as needed for Cough. benzonatate 2022-0 Yes [id number] 100mg Take 1 [facility] (TESSALON 1-09 capsule by ity of PERLES) 100 00:00: mouth [place] mg capsule 00 every 8 Medica l (eight) Branch hours as needed for Cough. benzonatate 2022-0 Yes [id number] 100mg Take 1 [facility] (TESSALON 1-09 capsule by ity of PERLES) 100 00:00: mouth [place] mg capsule 00 every 8 Medica l (eight) Branch hours as needed for Cough. benzonatate 2022-0 Yes [id number] 100mg Take 1 [facility] (TESSALON 1-09 capsule by ity of PERLES) 100 00:00: mouth [place] mg capsule 00 every 8 Medica l (eight) Branch hours as needed for Cough. benzonatate 2022-0 Yes [id number] 100mg Take 1 [facility] (TESSALON 1-09 capsule by ity of PERLES) 100 00:00: mouth [place] mg capsule 00 every 8 Medica l (eight) Branch hours as needed for Cough. benzonatate 2022-0 Yes [id number] 100mg Take 1 [facility] (TESSALON 1-09 capsule by ity of PERLES) 100 00:00: mouth [place] mg capsule 00 every 8 Medica l (eight) Branch hours as needed for Cough. benzonatate 2022-0 Yes [id number] 100mg Take 1 [facility] (TESSALON 1-09 capsule by ity of PERLES) 100 00:00: mouth [place] mg capsule 00 every 8 Medica l (eight) Branch hours as needed for Cough. benzonatate 2022-0 Yes [id number] 100mg Take 1 [facility] (TESSALON 1-09 capsule by ity of PERLES) 100 00:00: mouth [place] mg capsule 00 every 8 Medica l (eight) Branch hours as needed for Cough. benzonatate 2022-0 Yes [id number] 100mg Take 1 [facility] (TESSALON 1-09 capsule by ity of PERLES) 100 00:00: mouth [place] mg capsule 00 every 8 Medica l (eight) Branch hours as needed for Cough. benzonatate 2022-0 Yes [id number] 100mg Take 1 [facility] (TESSALON 1-09 capsule by ity of PERLES) 100 00:00: mouth [place] mg capsule 00 every 8 Medica l (eight) Branch hours as needed for Cough. benzonatate 2022-0 Yes [id number] 100mg Take 1 [facility] (TESSALON 1-09 capsule by ity of PERLES) 100 00:00: mouth [place] mg capsule 00 every 8 Medica l (eight) Branch hours as needed for Cough. benzonatate 2022-0 Yes [id number] 100mg Take 1 [facility] (TESSALON 1-09 capsule by ity of PERLES) 100 00:00: mouth [place] mg capsule 00 every 8 Medica l (eight) Branch hours as needed for Cough. benzonatate 2022-0 Yes [id number] 100mg Take 1 [facility] (TESSALON 1-09 capsule by ity of PERLES) 100 00:00: mouth [place] mg capsule 00 every 8 Medica l (eight) Branch hours as needed for Cough. benzonatate 2022-0 Yes [id number] 100mg Take 1 [facility] (TESSALON 1-09 capsule by ity of PERLES) 100 00:00: mouth [place] mg capsule 00 every 8 Medica l (eight) Branch hours as needed for Cough. benzonatate 2022-0 Yes [id number] 100mg Take 1 [facility] (TESSALON 1-09 capsule by ity of PERLES) 100 00:00: mouth [place] mg capsule 00 every 8 Medica l (eight) Branch hours as needed for Cough. benzonatate 2022-0 Yes [id number] 100mg Take 1 [facility] (TESSALON 1-09 capsule by ity of PERLES) 100 00:00: mouth [place] mg capsule 00 every 8 Medica l (eight) Branch hours as needed for Cough. benzonatate 2022-0 Yes [id number] 100mg Take 1 [facility] (TESSALON 1-09 capsule by ity of PERLES) 100 00:00: mouth [place] mg capsule 00 every 8 Medica l (eight) Branch hours as needed for Cough. benzonatate 2022-0 Yes [id number] 100mg Take 1 [facility] (TESSALON 1-09 capsule by ity of PERLES) 100 00:00: mouth [place] mg capsule 00 every 8 Medica l (eight) Branch hours as needed for Cough. benzonatate 2022-0 Yes [id number] 100mg Take 1 [facility] (TESSALON 1-09 capsule by ity of PERLES) 100 00:00: mouth [place] mg capsule 00 every 8 Medica l (eight) Branch hours as needed for Cough. benzonatate 2022-0 Yes [id number] 100mg Take 1 [facility] (TESSALON 1-09 capsule by ity of PERLES) 100 00:00: mouth [place] mg capsule 00 every 8 Medica l (eight) Branch hours as needed for Cough. benzonatate 2022-0 Yes [id number] 100mg Take 1 [facility] (TESSALON 1-09 capsule by ity of PERLES) 100 00:00: mouth [place] mg capsule 00 every 8 Medica l (eight) Branch hours as needed for Cough. benzonatate 2022-0 Yes [id number] 100mg Take 1 [facility] (TESSALON 1-09 capsule by ity of PERLES) 100 00:00: mouth [place] mg capsule 00 every 8 Medica l (eight) Branch hours as needed for Cough. benzonatate 2022-0 Yes [id number] 100mg Take 1 [facility] (TESSALON 1-09 capsule by ity of PERLES) 100 00:00: mouth [place] mg capsule 00 every 8 Medica l (eight) Branch hours as needed for Cough. benzonatate 2022-0 Yes [id number] 100mg Take 1 [facility] (TESSALON 1-09 capsule by ity of PERLES) 100 00:00: mouth [place] mg capsule 00 every 8 Medica l (eight) Branch hours as needed for Cough. benzonatate 2022-0 Yes [id number] 100mg Take 1 [facility] (TESSALON 1-09 capsule by ity of PERLES) 100 00:00: mouth [place] mg capsule 00 every 8 Medica l (eight) Branch hours as needed for Cough. benzonatate 2022-0 Yes [id number] 100mg Take 1 [facility] (TESSALON 1-09 capsule by ity of PERLES) 100 00:00: mouth [place] mg capsule 00 every 8 Medica l (eight) Branch hours as needed for Cough. benzonatate 2022-0 Yes [id number] 100mg Take 1 [facility] (TESSALON 1-09 capsule by ity of PERLES) 100 00:00: mouth [place] mg capsule 00 every 8 Medica l (eight) Branch hours as needed for Cough. benzonatate 2022-0 Yes [id number] 100mg Take 1 [facility] (TESSALON 1-09 capsule by ity of PERLES) 100 00:00: mouth [place] mg capsule 00 every 8 Medica l (eight) Branch hours as needed for Cough. benzonatate 2022-0 Yes [id number] 100mg Take 1 [facility] (TESSALON 1-09 capsule by ity of PERLES) 100 00:00: mouth [place] mg capsule 00 every 8 Medica l (eight) Branch hours as needed for Cough. benzonatate 2022-0 Yes [id number] 100mg Take 1 [facility] (TESSALON 1-09 capsule by ity of PERLES) 100 00:00: mouth [place] mg capsule 00 every 8 Medica l (eight) Branch hours as needed for Cough. benzonatate 2022-0 Yes [id number] 100mg Take 1 [facility] (TESSALON 1-09 capsule by ity of PERLES) 100 00:00: mouth [place] mg capsule 00 every 8 Medica l (eight) Branch hours as needed for Cough. benzonatate 2022-0 Yes [id number] 100mg Take 1 [facility] (TESSALON 1-09 capsule by ity of PERLES) 100 00:00: mouth [place] mg capsule 00 every 8 Medica l (eight) Branch hours as needed for Cough. benzonatate 2022-0 Yes [id number] 100mg Take 1 [facility] (TESSALON 1-09 capsule by ity of PERLES) 100 00:00: mouth [place] mg capsule 00 every 8 Medica l (eight) Branch hours as needed for Cough. benzonatate 2022-0 Yes [id number] 100mg Take 1 [facility] (TESSALON 1-09 capsule by ity of PERLES) 100 00:00: mouth [place] mg capsule 00 every 8 Medica l (eight) Branch hours as needed for Cough. benzonatate 2022-0 Yes [id number] 100mg Take 1 [facility] (TESSALON 1-09 capsule by ity of PERLES) 100 00:00: mouth [place] mg capsule 00 every 8 Medica l (eight) Branch hours as needed for Cough. benzonatate 2022-0 Yes [id number] 100mg Take 1 [facility] (TESSALON 1-09 capsule by ity of PERLES) 100 00:00: mouth [place] mg capsule 00 every 8 Medica l (eight) Branch hours as needed for Cough. benzonatate 2022-0 Yes [id number] 100mg Take 1 [facility] (TESSALON 1-09 capsule by ity of PERLES) 100 00:00: mouth [place] mg capsule 00 every 8 Medica l (eight) Branch hours as needed for Cough. benzonatate 2022-0 Yes [id number] 100mg Take 1 [facility] (TESSALON 1-09 capsule by ity of PERLES) 100 00:00: mouth [place] mg capsule 00 every 8 Medica l (eight) Branch hours as needed for Cough. benzonatate 2022-0 Yes [id number] 100mg Take 1 [facility] (TESSALON 1-09 capsule by ity of PERLES) 100 00:00: mouth [place] mg capsule 00 every 8 Medica l (eight) Branch hours as needed for Cough. benzonatate 2022-0 Yes [id number] 100mg Take 1 [facility] (TESSALON 1-09 capsule by ity of PERLES) 100 00:00: mouth [place] mg capsule 00 every 8 Medica l (eight) Branch hours as needed for Cough. benzonatate 2022-0 Yes [id number] 100mg Take 1 [facility] (TESSALON 1-09 capsule by ity of PERLES) 100 00:00: mouth [place] mg capsule 00 every 8 Medica l (eight) Branch hours as needed for Cough. benzonatate 2022-0 Yes [id number] 100mg Take 1 [facility] (TESSALON 1-09 capsule by ity of PERLES) 100 00:00: mouth [place] mg capsule 00 every 8 Medica l (eight) Branch hours as needed for Cough. benzonatate 2022-0 Yes [id number] 100mg Take 1 [facility] (TESSALON 1-09 capsule by ity of PERLES) 100 00:00: mouth [place] mg capsule 00 every 8 Medica l (eight) Branch hours as needed for Cough. benzonatate 2022-0 Yes [id number] 100mg Take 1 [facility] (TESSALON 1-09 capsule by ity of PERLES) 100 00:00: mouth [place] mg capsule 00 every 8 Medica l (eight) Branch hours as needed for Cough. benzonatate 2022-0 Yes [id number] 100mg Take 1 [facility] (TESSALON 1-09 capsule by ity of PERLES) 100 00:00: mouth [place] mg capsule 00 every 8 Medica l (eight) Branch hours as needed for Cough. benzonatate 2022-0 Yes [id number] 100mg Take 1 [facility] (TESSALON 1-09 capsule by ity of PERLES) 100 00:00: mouth [place] mg capsule 00 every 8 Medica l (eight) Branch hours as needed for Cough. benzonatate 2022-0 Yes [id number] 100mg Take 1 [facility] (TESSALON 1-09 capsule by ity of PERLES) 100 00:00: mouth [place] mg capsule 00 every 8 Medica l (eight) Branch hours as needed for Cough. benzonatate 2022-0 Yes [id number] 100mg Take 1 [facility] (TESSALON 1-09 capsule by ity of PERLES) 100 00:00: mouth [place] mg capsule 00 every 8 Medica l (eight) Branch hours as needed for Cough. benzonatate Yes [id number] 100mg Take 1 [facility] (TESSALON 1-09 capsule by ity of BRAD) 100 00:00: mouth [place] mg capsule 00 every 8 Medica l (eight) Branch hours as needed for Cough. cloNIDine 0 2022- No [id number] .2mg Un renetta (CATAPRES) 03-08 ity of tablet 0.2 22:00: 21:21 [place] mg 00 :00 Medical Branch cloNIDine 2022-0 2022- No [id number] .2mg 0.2 mg, [facility] (CATAPRES) 03-08 Oral, ity of tablet 0.2 22:00: 21:21 ONCE, 1 [place] as mg 00 :00 dose, On [facility] 03/08/22 Branch at 1600, Routine cloNIDine 2022- No [id number] .2mg Un renetta (CATAPRES) 03-08 ity of tablet 0.2 22:00: 21:21 [place] mg 00 :00 Medical Branch cloNIDine 0 2022- No [id number] .2mg 0.2 mg, [facility] (CATAPRES) 03-08 Oral, ity of tablet 0.2 22:00: 21:21 ONCE, 1 [place] as mg 00 :00 dose, On [facility] 03/08/22 Branch at 1600, Routine bumetanide 2022- No 1mg Take 1 mg U nivers 1 mg tablet 03-08 by mouth ity of 15:30: 00:00 in the [place] 31 :00 morning. Medical Indication Branch s: reports kidney Dr Rx, ~2 mths ago bumetanide 2022-0 2022- No 1mg Take 1 mg U nivers 1 mg tablet 03-08 by mouth ity of 15:30: 00:00 in the [place] 31 :00 morning. Medical Indication Branch s: reports kidney Dr Rx, ~2 mths ago bumetanide 2022-0 2022- No 1mg Take 1 mg U nivers 1 mg tablet 03-08 by mouth ity of 15:30: 00:00 in the [place] 31 :00 morning. Medical Indication Branch s: reports kidney Dr Rx, ~2 mths ago bumetanide 2022-0 3- No 1mg Take 1 mg U nivers 1 mg tablet 1-05 -05 by mouth ity of 15:30: 00:00 in the [place] 31 :00 morning. Medical Indication Branch s: reports kidney Dr Rx, ~2 mths ago levothyroxi 2022-0 Yes [id number] 150ug Take 1 [facility] ne 150 mcg 1-05 tablet by ity of tablet 00:00: mouth [place] 00 every Medical morning. Branch tamsulosin 0 Yes [id number] .4mg Take 1 [facility] 0.4 mg 24 03-08 9102 capsule by ity of hr capsule 00:00: mouth in [place] as 00 the Medical morning. Branch budesonide 0 Yes [id number] .5mg Inhale 2 [facility] 0.5 mg/2 mL 1-05 mL in the ity of nebulizer 00:00: morning [place] solution 00 and 2 mL Medical in the Branch evening. traZODone 0 Yes [id number] 50mg Take 1 U nivers 50 mg 1-05 tablet by ity of tablet 00:00: mouth at [place] 00 bedtime. Medical Branch doxepin 25 2022-0 Yes [id number] 25mg Take 1 [facility] mg capsule 1-05 capsule by ity of 00:00: mouth at [place] 00 bedtime. Medical Branch glipiZIDE 0 Yes [id number] 2.5mg Take 1 U nivers XL 2.5 [...] Rx, ~2 mths ago arformotero 2022-0 Yes [id number] 15ug Use 2 mL [facility] L 15 mcg/2 1-05 as ity of mL 00:00: directed [place] nebulizer 00 in the Medical solution morning Branch and 2 mL in the evening. ipratropium 0 Yes [id number] .5mg Inhale 2.5 [facility] 0.02 % 1-05 mL every 4 ity of nebulizer 00:00: (four) [place] solution 00 hours as Medical needed for Branch Wheezing or Shortness of Breath. albuterol Yes [id number] 2{puff} Inhale 2 [facility] 90 1-05 Puffs ity of mcg/actuati 00:00: every 6 [place] as on inhaler 00 (six) Medical hours as Branch needed for Wheezing or Shortness of Breath. albuterol Yes [id number] 2.5mg Inhale 3 [facility] 2.5 mg /3 1-05 mL every 2 ity of mL (0.083 00:00: (two) [place] %) 00 hours as Medical nebulizer needed for Bran ch solution Shortness of Breath or Wheezing. cloNIDine Yes [id number] .2mg Take 1 U nivers 0.2 mg 1-05 tablet by ity of tablet 00:00: mouth 3 [place] 00 (three) Medical times Branch daily as needed (Uncontrol led Hypertensi on). Take 1 Tab if BP > 150/90 NIFEdipine 0 Yes [id number] 30mg Take 1 U nivers ER 30 mg 1-05 tablet by ity of tablet 00:00: mouth in [place] 00 the Medical morning. Branch levothyroxi Yes [id number] 150ug Take 1 [facility] ne 150 mcg 1-05 tablet by ity of tablet 00:00: mouth [place] 00 every Medical morning. Branch tamsulosin Yes [id number] .4mg Take 1 [facility] 0.4 mg 24 1-05 9102 capsule by ity of hr capsule 00:00: mouth in [place] as 00 the Medical morning. Branch budesonide Yes [id number] .5mg Inhale 2 [facility] 0.5 mg/2 mL 1-05 mL in the ity of nebulizer 00:00: morning [place] solution 00 and 2 mL Medical in the Branch evening. traZODone 0 Yes [id number] 50mg Take 1 U nivers 50 mg 1-05 tablet by ity of tablet 00:00: mouth at [place] 00 bedtime. Medical Branch doxepin 25 0 Yes [id number] 25mg Take 1 [facility] mg capsule 1-05 capsule by ity of 00:00: mouth at [place] 00 bedtime. Medical Branch glipiZIDE Yes [id number] 2.5mg Take 1 U nivers XL 2.5 [...] Dr Rx, ~2 mths ago arformotero Yes [id number] 15ug Use 2 mL [facility] L 15 mcg/2 1-05 as ity of mL 00:00: directed [place] nebulizer 00 in the Medical solution morning Branch and 2 mL in the evening. ipratropium Yes [id number] .5mg Inhale 2.5 [facility] 0.02 % 1-05 mL every 4 ity of nebulizer 00:00: (four) [place] solution 00 hours as Medical needed for Branch Wheezing or Shortness of Breath. albuterol Yes [id number] 2{puff} Inhale 2 [facility] 90 1-05 Puffs ity of mcg/actuati 00:00: every 6 [place] as on inhaler 00 (six) Medical hours as Branch needed for Wheezing or Shortness of Breath. albuterol Yes [id number] 2.5mg Inhale 3 [facility] 2.5 mg /3 1-05 mL every 2 ity of mL (0.083 00:00: (two) [place] %) 00 hours as Medical nebulizer needed for Bran ch solution Shortness of Breath or Wheezing. cloNIDine Yes [id number] .2mg Take 1 U nivers 0.2 mg 1-05 tablet by ity of tablet 00:00: mouth 3 [place] 00 (three) Medical times Branch daily as needed (Uncontrol led Hypertensi on). Take 1 Tab if BP > 150/90 NIFEdipine Yes [id number] 30mg Take 1 U nivers ER 30 mg 1-05 tablet by ity of tablet 00:00: mouth in [place] 00 the Medical morning. Branch levothyroxi Yes [id number] 150ug Take 1 [facility] ne 150 mcg 1-05 tablet by ity of tablet 00:00: mouth [place] 00 every Medical morning. Branch tamsulosin Yes [id number] .4mg Take 1 [facility] 0.4 mg 24 1-05 9102 capsule by ity of hr capsule 00:00: mouth in [place] as 00 the Medical morning. Branch budesonide 0 Yes [id number] .5mg Inhale 2 [facility] 0.5 mg/2 mL 1-05 mL in the ity of nebulizer 00:00: morning [place] solution 00 and 2 mL Medical in the Branch evening. traZODone 0 Yes [id number] 50mg Take 1 U nivers 50 mg 1-05 tablet by ity of tablet 00:00: mouth at [place] 00 bedtime. Medical Branch doxepin 25 0 Yes [id number] 25mg Take 1 [facility] mg capsule 1-05 capsule by ity of 00:00: mouth at [place] 00 bedtime. Medical Branch glipiZIDE Yes [id number] 2.5mg Take 1 U nivers XL 2.5 [...] Rx, ~2 mths ago arformotero 0 Yes [id number] 15ug Use 2 mL [facility] L 15 mcg/2 1-05 as ity of mL 00:00: directed [place] nebulizer 00 in the Medical solution morning Branch and 2 mL in the evening. ipratropium 0 Yes [id number] .5mg Inhale 2.5 [facility] 0.02 % 1-05 mL every 4 ity of nebulizer 00:00: (four) [place] solution 00 hours as Medical needed for Branch Wheezing or Shortness of Breath. albuterol 0 Yes [id number] 2{puff} Inhale 2 [facility] 90 1-05 Puffs ity of mcg/actuati 00:00: every 6 [place] as on inhaler 00 (six) Medical hours as Branch needed for Wheezing or Shortness of Breath. albuterol 0 Yes [id number] 2.5mg Inhale 3 [facility] 2.5 mg /3 1-05 mL every 2 ity of mL (0.083 00:00: (two) [place] %) 00 hours as Medical nebulizer needed for Bran ch solution Shortness of Breath or Wheezing. cloNIDine 0 Yes [id number] .2mg Take 1 U nivers 0.2 mg 1-05 tablet by ity of tablet 00:00: mouth 3 [place] 00 (three) Medical times Branch daily as needed (Uncontrol led Hypertensi on). Take 1 Tab if BP > 150/90 NIFEdipine 0 Yes [id number] 30mg Take 1 U nivers ER 30 mg 1-05 tablet by ity of tablet 00:00: mouth in [place] 00 the Medical morning. Branch levothyroxi Yes [id number] 150ug Take 1 [facility] ne 150 mcg 1-05 tablet by ity of tablet 00:00: mouth [place] 00 every Medical morning. Branch tamsulosin Yes [id number] .4mg Take 1 [facility] 0.4 mg 24 1-05 9102 capsule by ity of hr capsule 00:00: mouth in [place] as 00 the Medical morning. Branch budesonide Yes [id number] .5mg Inhale 2 [facility] 0.5 mg/2 mL 1-05 mL in the ity of nebulizer 00:00: morning [place] solution 00 and 2 mL Medical in the Branch evening. traZODone 0 Yes [id number] 50mg Take 1 U nivers 50 mg 1-05 tablet by ity of tablet 00:00: mouth at [place] 00 bedtime. Medical Branch doxepin 25 0 Yes [id number] 25mg Take 1 [facility] mg capsule 1-05 capsule by ity of 00:00: mouth at [place] 00 bedtime. Medical Branch glipiZIDE 0 Yes [id number] 2.5mg Take 1 U nivers XL 2.5 [...] Rx, ~2 mths ago arformotero 0 Yes [id number] 15ug Use 2 mL [facility] L 15 mcg/2 1-05 as ity of mL 00:00: directed [place] nebulizer 00 in the Medical solution morning Branch and 2 mL in the evening. ipratropium 0 Yes [id number] .5mg Inhale 2.5 [facility] 0.02 % 1-05 mL every 4 ity of nebulizer 00:00: (four) [place] solution 00 hours as Medical needed for Branch Wheezing or Shortness of Breath. albuterol Yes [id number] 2{puff} Inhale 2 [facility] 90 1-05 Puffs ity of mcg/actuati 00:00: every 6 [place] as on inhaler 00 (six) Medical hours as Branch needed for Wheezing or Shortness of Breath. albuterol Yes [id number] 2.5mg Inhale 3 [facility] 2.5 mg /3 1-05 mL every 2 ity of mL (0.083 00:00: (two) [place] ) 00 hours as Medical nebulizer needed for Bran ch solution Shortness of Breath or Wheezing. cloNIDine Yes [id number] .2mg Take 1 U nivers 0.2 mg 1-05 tablet by ity of tablet 00:00: mouth 3 [place] 00 (three) Medical times Branch daily as needed (Uncontrol led Hypertensi on). Take 1 Tab if BP > 150/90 NIFEdipine Yes [id number] 30mg Take 1 U nivers ER 30 mg 1-05 tablet by ity of tablet 00:00: mouth in [place] 00 the Medical morning. Branch levothyroxi Yes [id number] 150ug Take 1 [facility] ne 150 mcg 1-05 tablet by ity of tablet 00:00: mouth [place] 00 every Medical morning. Branch tamsulosin Yes [id number] .4mg Take 1 [facility] 0.4 mg 24 1-05 9102 capsule by ity of hr capsule 00:00: mouth in [place] as 00 the Medical morning. Branch budesonide Yes [id number] .5mg Inhale 2 [facility] 0.5 mg/2 mL 1-05 mL in the ity of nebulizer 00:00: morning [place] solution 00 and 2 mL Medical in the Branch evening. traZODone Yes [id number] 50mg Take 1 U nivers 50 mg 1-05 tablet by ity of tablet 00:00: mouth at [place] 00 bedtime. Medical Branch doxepin 25 Yes [id number] 25mg Take 1 [facility] mg capsule 1-05 capsule by ity of 00:00: mouth at [place] 00 bedtime. Medical Branch glipiZIDE Yes [id number] 2.5mg Take 1 U nivers XL 2.5 [...] Dr Rx, ~2 mths ago arformotero Yes [id number] 15ug Use 2 mL [facility] L 15 mcg/2 1-05 as ity of mL 00:00: directed [place] nebulizer 00 in the Medical solution morning Branch and 2 mL in the evening. ipratropium Yes [id number] .5mg Inhale 2.5 [facility] 0.02 % 1-05 mL every 4 ity of nebulizer 00:00: (four) [place] solution 00 hours as Medical needed for Branch Wheezing or Shortness of Breath. albuterol Yes [id number] 2{puff} Inhale 2 [facility] 90 1-05 Puffs ity of mcg/actuati 00:00: every 6 [place] as on inhaler 00 (six) Medical hours as Branch needed for Wheezing or Shortness of Breath. albuterol Yes [id number] 2.5mg Inhale 3 [facility] 2.5 mg /3 1-05 mL every 2 ity of mL (0.083 00:00: (two) [place] %) 00 hours as Medical nebulizer needed for Bran ch solution Shortness of Breath or Wheezing. cloNIDine Yes [id number] .2mg Take 1 U nivers 0.2 mg 1-05 tablet by ity of tablet 00:00: mouth 3 [place] 00 (three) Medical times Branch daily as needed (Uncontrol led Hypertensi on). Take 1 Tab if BP > 150/90 NIFEdipine 2022-0 Yes [id number] 30mg Take 1 U nivers ER 30 mg 1-05 tablet by ity of tablet 00:00: mouth in [place] 00 the Medical morning. Branch levothyroxi 2022-0 Yes [id number] 150ug Take 1 [facility] ne 150 mcg 1-05 tablet by ity of tablet 00:00: mouth [place] 00 every Medical morning. Branch tamsulosin 2022-0 Yes [id number] .4mg Take 1 [facility] 0.4 mg 24 1-05 9102 capsule by ity of hr capsule 00:00: mouth in [place] as 00 the Medical morning. Branch budesonide 2022-0 Yes [id number] .5mg Inhale 2 [facility] 0.5 mg/2 mL 1-05 mL in the ity of nebulizer 00:00: morning [place] solution 00 and 2 mL Medical in the Branch evening. traZODone 2022-0 Yes [id number] 50mg Take 1 U nivers 50 mg 1-05 tablet by ity of tablet 00:00: mouth at [place] 00 bedtime. Medical Branch doxepin 25 2022-0 Yes [id number] 25mg Take 1 [facility] mg capsule 1-05 capsule by ity of 00:00: mouth at [place] 00 bedtime. Medical Branch glipiZIDE 2022-0 Yes [id number] 2.5mg Take 1 U nivers XL 2.5 mg 1-05 tablet by ity o f 24 hr 00:00: mouth in [place] tablet 00 the Medical morning Branch and 1 tablet in the evening. bumetanide 0 Yes 1mg Take 1 Unive rs 1 mg tablet 1-05 tablet by ity of 00:00: mouth [place] 00 every Medical morning Branch and evening. Indication s: reports kidney Dr Rx, ~2 mths ago arformotero 2022-0 Yes [id number] 15ug Use 2 mL [facility] L 15 mcg/2 1-05 as ity of mL 00:00: directed [place] nebulizer 00 in the Medical solution morning Branch and 2 mL in the evening. ipratropium 2022-0 Yes [id number] .5mg Inhale 2.5 [facility] 0.02 % 1-05 mL every 4 ity of nebulizer 00:00: (four) [place] solution 00 hours as Medical needed for Branch Wheezing or Shortness of Breath. albuterol Yes [id number] 2{puff} Inhale 2 [facility] 90 1-05 Puffs ity of mcg/actuati 00:00: every 6 [place] as on inhaler 00 (six) Medical hours as Branch needed for Wheezing or Shortness of Breath. albuterol 0 Yes [id number] 2.5mg Inhale 3 [facility] 2.5 mg /3 1-05 mL every 2 ity of mL (0.083 00:00: (two) [place] %) 00 hours as Medical nebulizer needed for Bran ch solution Shortness of Breath or Wheezing. cloNIDine Yes [id number] .2mg Take 1 U nivers 0.2 mg 1-05 tablet by ity of tablet 00:00: mouth 3 [place] 00 (three) Medical times Branch daily as needed (Uncontrol led Hypertensi on). Take 1 Tab if BP > 150/90 NIFEdipine 2022-0 Yes [id number] 30mg Take 1 U nivers ER 30 mg 1-05 tablet by it[facility] of tablet 00:00: mouth in [place] 00 the Medical morning. Branch levothyroxi Yes [id number] 150ug Take 1 [facility] ne 150 mcg 1-05 tablet by it[facility] of tablet 00:00: mouth [place] 00 every Medical morning. Branch tamsulosin Yes [id number] .4mg Take 1 [facility] 0.4 mg 24 1-05 9102 capsule by ity of hr capsule 00:00: mouth in [place] as 00 the Medical morning. Branch budesonide Yes [id number] .5mg Inhale 2 [facility] 0.5 mg/2 mL 1-05 mL in the ity of nebulizer 00:00: morning [place] solution 00 and 2 mL Medical in the Branch evening. traZODone 0 Yes [id number] 50mg Take 1 [facility] nivers 50 mg 1-05 tablet by ity of tablet 00:00: mouth at [place] 00 bedtime. Medical Branch doxepin 25 0 Yes [id number] 25mg Take 1 [facility] mg capsule 1-05 capsule by ity of 00:00: mouth at [place] 00 bedtime. Medical Branch glipiZIDE 0 Yes [id number] 2.5mg Take 1 [facility] nivers XL 2.5 [...] Rx, ~2 mths ago arformotero 2022- Yes [id number] 15ug Use 2 mL [facility] L 15 mcg/2 1-05 as ity of mL 00:00: directed [place] nebulizer 00 in the Medical solution morning Branch and 2 mL in the evening. ipratropium Yes [id number] .5mg Inhale 2.5 [facility] 0.02 % 1-05 mL every 4 ity of nebulizer 00:00: (four) [place] solution 00 hours as Medical needed for Branch Wheezing or Shortness of Breath. albuterol Yes [id number] 2{puff} Inhale 2 [facility] 90 1-05 Puffs ity of mcg/actuati 00:00: every 6 [place] as on inhaler 00 (six) Medical hours as Branch needed for Wheezing or Shortness of Breath. albuterol Yes [id number] 2.5mg Inhale 3 [facility] 2.5 mg /3 1-05 mL every 2 ity of mL (0.083 00:00: (two) [place] %) 00 hours as Medical nebulizer needed for Bran ch solution Shortness of Breath or Wheezing. cloNIDine Yes [id number] .2mg Take 1 [facility] nivers 0.2 mg 1-05 tablet by ity of tablet 00:00: mouth 3 [place] 00 (three) Medical times Branch daily as needed (Uncontrol led Hypertensi on). Take 1 Tab if BP > 150/90 NIFEdipine 2022-0 Yes [id number] 30mg Take 1 [facility] nivers ER 30 mg 1-05 tablet by ity of tablet 00:00: mouth in [place] 00 the Medical morning. Branch levothyroxi 2022-0 Yes [id number] 150ug Take 1 [facility] ne 150 mcg 1-05 tablet by ity of tablet 00:00: mouth [place] 00 every Medical morning. Branch tamsulosin 0 Yes [id number] .4mg Take 1 [facility] 0.4 mg 24 1-05 9102 capsule by ity of hr capsule 00:00: mouth in [place] as 00 the Medical morning. Branch budesonide 0 Yes [id number] .5mg Inhale 2 [facility] 0.5 mg/2 mL 1-05 mL in the ity of nebulizer 00:00: morning [place] solution 00 and 2 mL Medical in the Branch evening. traZODone 2022-0 Yes [id number] 50mg Take 1 [facility] nivers 50 mg 1-05 tablet by ity of tablet 00:00: mouth at [place] 00 bedtime. Medical Branch doxepin 25 2022-0 Yes [id number] 25mg Take 1 [facility] mg capsule 1-05 capsule by ity of 00:00: mouth at [place] 00 bedtime. Medical Branch glipiZIDE 0 Yes [id number] 2.5mg Take 1 [facility] nivers XL 2.5 [...] Rx, ~2 mths ago arformotero 2022-0 Yes [id number] 15ug Use 2 mL [facility] L 15 mcg/2 1-05 as ity of mL 00:00: directed [place] nebulizer 00 in the Medical solution morning Branch and 2 mL in the evening. ipratropium 0 Yes [id number] .5mg Inhale 2.5 [facility] 0.02 % 1-05 mL every 4 ity of nebulizer 00:00: (four) [place] solution 00 hours as Medical needed for Branch Wheezing or Shortness of Breath. albuterol 2022-0 Yes [id number] 2{puff} Inhale 2 [facility] 90 1-05 Puffs ity of mcg/actuati 00:00: every 6 [place] as on inhaler 00 (six) Medical hours as Branch needed for Wheezing or Shortness of Breath. albuterol 2022-0 Yes [id number] 2.5mg Inhale 3 [facility] 2.5 mg /3 1-05 mL every 2 ity of mL (0.083 00:00: (two) [place] %) 00 hours as Medical nebulizer needed for Bran ch solution Shortness of Breath or Wheezing. cloNIDine Yes [id number] .2mg Take 1 [facility] nivers 0.2 mg 1-05 tablet by ity of tablet 00:00: mouth 3 [place] 00 (three) Medical times Branch daily as needed (Uncontrol led Hypertensi on). Take 1 Tab if BP > 150/90 NIFEdipine Yes [id number] 30mg Take 1 [facility] nivers ER 30 mg 1-05 tablet by ity of tablet 00:00: mouth in [place] 00 the Medical morning. Branch levothyroxi Yes [id number] 150ug Take 1 [facility] ne 150 mcg 1-05 tablet by ity of tablet 00:00: mouth [place] 00 every Medical morning. Branch tamsulosin Yes [id number] .4mg Take 1 [facility] 0.4 mg 24 1-05 9102 capsule by ity of hr capsule 00:00: mouth in [place] as 00 the Medical morning. Branch budesonide Yes [id number] .5mg Inhale 2 [facility] 0.5 mg/2 mL 1-05 mL in the ity of nebulizer 00:00: morning [place] solution 00 and 2 mL Medical in the Branch evening. traZODone Yes [id number] 50mg Take 1 [facility] nivers 50 mg 1-05 tablet by ity of tablet 00:00: mouth at [place] 00 bedtime. Medical Branch doxepin 25 Yes [id number] 25mg Take 1 [facility] mg capsule 1-05 capsule by ity of 00:00: mouth at [place] 00 bedtime. Medical Branch glipiZIDE Yes [id number] 2.5mg Take 1 [facility] nivers XL 2.5 [...] Dr Rx, ~2 mths ago arformotero Yes [id number] 15ug Use 2 mL [facility] L 15 mcg/2 1-05 as ity of mL 00:00: directed [place] nebulizer 00 in the Medical solution morning Branch and 2 mL in the evening. ipratropium Yes [id number] .5mg Inhale 2.5 [facility] 0.02 % 1-05 mL every 4 ity of nebulizer 00:00: (four) [place] solution 00 hours as Medical needed for Branch Wheezing or Shortness of Breath. albuterol Yes [id number] 2{puff} Inhale 2 [facility] 90 1-05 Puffs ity of mcg/actuati 00:00: every 6 [place] as on inhaler 00 (six) Medical hours as Branch needed for Wheezing or Shortness of Breath. albuterol Yes [id number] 2.5mg Inhale 3 [facility] 2.5 mg /3 1-05 mL every 2 ity of mL (0.083 00:00: (two) [place] %) 00 hours as Medical nebulizer needed for Bran ch solution Shortness of Breath or Wheezing. cloNIDine Yes [id number] .2mg Take 1 [facility] nivers 0.2 mg 1-05 tablet by ity of tablet 00:00: mouth 3 [place] 00 (three) Medical times Branch daily as needed (Uncontrol led Hypertensi on). Take 1 Tab if BP > 150/90 NIFEdipine Yes [id number] 30mg Take 1 [facility] nivers ER 30 mg 1-05 tablet by ity of tablet 00:00: mouth in [place] 00 the Medical morning. Branch levothyroxi Yes [id number] 150ug Take 1 [facility] ne 150 mcg 1-05 tablet by ity of tablet 00:00: mouth [place] 00 every Medical morning. Branch tamsulosin Yes [id number] .4mg Take 1 [facility] 0.4 mg 24 1-05 9102 capsule by ity of hr capsule 00:00: mouth in [place] as 00 the Medical morning. Branch budesonide 0 Yes [id number] .5mg Inhale 2 [facility] 0.5 mg/2 mL 1-05 mL in the ity of nebulizer 00:00: morning [place] solution 00 and 2 mL Medical in the Branch evening. traZODone 0 Yes [id number] 50mg Take 1 [facility] nivers 50 mg 1-05 tablet by ity of tablet 00:00: mouth at [place] 00 bedtime. Medical Branch doxepin 25 Yes [id number] 25mg Take 1 [facility] mg capsule 1-05 capsule by ity of 00:00: mouth at [place] 00 bedtime. Medical Branch glipiZIDE Yes [id number] 2.5mg Take 1 [facility] nivers XL 2.5 [...] Dr Rx, ~2 mths ago arformotero Yes [id number] 15ug Use 2 mL [facility] L 15 mcg/2 1-05 as ity of mL 00:00: directed [place] nebulizer 00 in the Medical solution morning Branch and 2 mL in the evening. ipratropium Yes [id number] .5mg Inhale 2.5 [facility] 0.02 % 1-05 mL every 4 ity of nebulizer 00:00: (four) [place] solution 00 hours as Medical needed for Branch Wheezing or Shortness of Breath. albuterol Yes [id number] 2{puff} Inhale 2 [facility] 90 1-05 Puffs ity of mcg/actuati 00:00: every 6 [place] as on inhaler 00 (six) Medical hours as Branch needed for Wheezing or Shortness of Breath. albuterol Yes [id number] 2.5mg Inhale 3 [facility] 2.5 mg /3 1-05 mL every 2 ity of mL (0.083 00:00: (two) [place] %) 00 hours as Medical nebulizer needed for Bran ch solution Shortness of Breath or Wheezing. cloNIDine Yes [id number] .2mg Take 1 [facility] nivers 0.2 mg 1-05 tablet by ity of tablet 00:00: mouth 3 [place] 00 (three) Medical times Branch daily as needed (Uncontrol led Hypertensi on). Take 1 Tab if BP > 150/90 NIFEdipine Yes [id number] 30mg Take 1 [facility] nivers ER 30 mg 1-05 tablet by ity of tablet 00:00: mouth in [place] 00 the Medical morning. Branch levothyroxi Yes [id number] 150ug Take 1 [facility] ne 150 mcg 1-05 tablet by ity of tablet 00:00: mouth [place] 00 every Medical morning. Branch tamsulosin Yes [id number] .4mg Take 1 [facility] 0.4 mg 24 1-05 9102 capsule by ity of hr capsule 00:00: mouth in [place] as 00 the Medical morning. Branch budesonide Yes [id number] .5mg Inhale 2 [facility] 0.5 mg/2 mL 1-05 mL in the ity of nebulizer 00:00: morning [place] solution 00 and 2 mL Medical in the Branch evening. traZODone Yes [id number] 50mg Take 1 [facility] nivers 50 mg 1-05 tablet by ity of tablet 00:00: mouth at [place] 00 bedtime. Medical Branch doxepin 25 Yes [id number] 25mg Take 1 [facility] mg capsule 1-05 capsule by ity of 00:00: mouth at [place] 00 bedtime. Medical Branch glipiZIDE Yes [id number] 2.5mg Take 1 [facility] nivers XL 2.5 mg 1-05 tablet by ity o f 24 hr 00:00: mouth in [place] tablet 00 the Medical morning Branch and 1 tablet in the evening. bumetanide Yes 1mg Take 1 [facility] rs 1 mg tablet 1-05 tablet by ity of 00:00: mouth [place] 00 every Medical morning Branch and evening. Indication s: reports kidney Dr Rx, ~2 mths ago arformotero 0 Yes [id number] 15ug Use 2 mL [facility] L 15 mcg/2 1-05 as ity of mL 00:00: directed [place] nebulizer 00 in the Medical solution morning Branch and 2 mL in the evening. ipratropium 0 Yes [id number] .5mg Inhale 2.5 [facility] 0.02 % 1-05 mL every 4 ity of nebulizer 00:00: (four) [place] solution 00 hours as Medical needed for Branch Wheezing or Shortness of Breath. albuterol 0 Yes [id number] 2{puff} Inhale 2 [facility] 90 1-05 Puffs ity of mcg/actuati 00:00: every 6 [place] as on inhaler 00 (six) Medical hours as Branch needed for Wheezing or Shortness of Breath. albuterol Yes [id number] 2.5mg Inhale 3 [facility] 2.5 mg /3 1-05 mL every 2 ity of mL (0.083 00:00: (two) [place] %) 00 hours as Medical nebulizer needed for Bran ch solution Shortness of Breath or Wheezing. cloNIDine Yes [id number] .2mg Take 1 [facility] nivers 0.2 mg 1-05 tablet by ity of tablet 00:00: mouth 3 [place] 00 (three) Medical times Branch daily as needed (Uncontrol led Hypertensi on). Take 1 Tab if BP > 150/90 NIFEdipine 0 Yes [id number] 30mg Take 1 [facility] nivers ER 30 mg 1-05 tablet by ity of tablet 00:00: mouth in [place] 00 the Medical morning. Branch levothyroxi Yes [id number] 150ug Take 1 [facility] ne 150 mcg 1-05 tablet by ity of tablet 00:00: mouth [place] 00 every Medical morning. Branch tamsulosin Yes [id number] .4mg Take 1 [facility] 0.4 mg 24 1-05 9102 capsule by ity of hr capsule 00:00: mouth in [place] as 00 the Medical morning. Branch budesonide Yes [id number] .5mg Inhale 2 [facility] 0.5 mg/2 mL 1-05 mL in the ity of nebulizer 00:00: morning [place] solution 00 and 2 mL Medical in the Branch evening. traZODone Yes [id number] 50mg Take 1 [facility] nivers 50 mg 1-05 tablet by ity of tablet 00:00: mouth at [place] 00 bedtime. Medical Branch doxepin 25 0 Yes [id number] 25mg Take 1 [facility] mg capsule 1-05 capsule by ity of 00:00: mouth at [place] 00 bedtime. Medical Branch glipiZIDE 0 Yes [id number] 2.5mg Take 1 [facility] nivers XL 2.5 [...] Dr Rx, ~2 mths ago arformotero Yes [id number] 15ug Use 2 mL [facility] L 15 mcg/2 1-05 as ity of mL 00:00: directed [place] nebulizer 00 in the Medical solution morning Branch and 2 mL in the evening. ipratropium Yes [id number] .5mg Inhale 2.5 [facility] 0.02 % 1-05 mL every 4 ity of nebulizer 00:00: (four) [place] solution 00 hours as Medical needed for Branch Wheezing or Shortness of Breath. albuterol Yes [id number] 2{puff} Inhale 2 [facility] 90 1-05 Puffs ity of mcg/actuati 00:00: every 6 [place] as on inhaler 00 (six) Medical hours as Branch needed for Wheezing or Shortness of Breath. albuterol Yes [id number] 2.5mg Inhale 3 [facility] 2.5 mg /3 1-05 mL every 2 ity of mL (0.083 00:00: (two) [place] %) 00 hours as Medical nebulizer needed for Bran ch solution Shortness of Breath or Wheezing. cloNIDine Yes [id number] .2mg Take 1 [facility] nivers 0.2 mg 1-05 tablet by ity of tablet 00:00: mouth 3 [place] 00 (three) Medical times Branch daily as needed (Uncontrol led Hypertensi on). Take 1 Tab if BP > 150/90 NIFEdipine Yes [id number] 30mg Take 1 [facility] nivers ER 30 mg 1-05 tablet by ity of tablet 00:00: mouth in [place] 00 the Medical morning. Branch levothyroxi Yes [id number] 150ug Take 1 [facility] ne 150 mcg 1-05 tablet by ity of tablet 00:00: mouth [place] 00 every Medical morning. Branch tamsulosin Yes [id number] .4mg Take 1 [facility] 0.4 mg 24 1-05 9102 capsule by ity of hr capsule 00:00: mouth in [place] as 00 the Medical morning. Branch budesonide Yes [id number] .5mg Inhale 2 [facility] 0.5 mg/2 mL 1-05 mL in the ity of nebulizer 00:00: morning [place] solution 00 and 2 mL Medical in the Branch evening. traZODone 0 Yes [id number] 50mg Take 1 [facility] nivers 50 mg 1-05 tablet by ity of tablet 00:00: mouth at [place] 00 bedtime. Medical Branch doxepin 25 Yes [id number] 25mg Take 1 [facility] mg capsule 1-05 capsule by ity of 00:00: mouth at [place] 00 bedtime. Medical Branch glipiZIDE Yes [id number] 2.5mg Take 1 [facility] nivers XL 2.5 [...] Dr Rx, ~2 mths ago arformotero Yes [id number] 15ug Use 2 mL [facility] L 15 mcg/2 1-05 as ity of mL 00:00: directed [place] nebulizer 00 in the Medical solution morning Branch and 2 mL in the evening. ipratropium Yes [id number] .5mg Inhale 2.5 [facility] 0.02 % 1-05 mL every 4 ity of nebulizer 00:00: (four) [place] solution 00 hours as Medical needed for Branch Wheezing or Shortness of Breath. albuterol Yes [id number] 2{puff} Inhale 2 [facility] 90 1-05 Puffs ity of mcg/actuati 00:00: every 6 [place] as on inhaler 00 (six) Medical hours as Branch needed for Wheezing or Shortness of Breath. albuterol Yes [id number] 2.5mg Inhale 3 [facility] 2.5 mg /3 1-05 mL every 2 ity of mL (0.083 00:00: (two) [place] %) 00 hours as Medical nebulizer needed for Bran ch solution Shortness of Breath or Wheezing. cloNIDine Yes [id number] .2mg Take 1 [facility] nivers 0.2 mg 1-05 tablet by ity of tablet 00:00: mouth 3 [place] 00 (three) Medical times Branch daily as needed (Uncontrol led Hypertensi on). Take 1 Tab if BP > 150/90 NIFEdipine 2022-0 Yes [id number] 30mg Take 1 [facility] nivers ER 30 mg 1-05 tablet by ity of tablet 00:00: mouth in [place] 00 the Medical morning. Branch levothyroxi 0 Yes [id number] 150ug Take 1 [facility] ne 150 mcg 1-05 tablet by ity of tablet 00:00: mouth [place] 00 every Medical morning. Branch tamsulosin Yes [id number] .4mg Take 1 [facility] 0.4 mg 24 1-05 9102 capsule by ity of hr capsule 00:00: mouth in [place] as 00 the Medical morning. Branch budesonide Yes [id number] .5mg Inhale 2 [facility] 0.5 mg/2 mL 1-05 mL in the ity of nebulizer 00:00: morning [place] solution 00 and 2 mL Medical in the Branch evening. traZODone 0 Yes [id number] 50mg Take 1 [facility] nivers 50 mg 1-05 tablet by ity of tablet 00:00: mouth at [place] 00 bedtime. Medical Branch doxepin 25 0 Yes [id number] 25mg Take 1 [facility] mg capsule 1-05 capsule by ity of 00:00: mouth at [place] 00 bedtime. Medical Branch glipiZIDE 2022-0 Yes [id number] 2.5mg Take 1 [facility] nivers XL 2.5 [...] Rx, ~2 mths ago arformotero 2022-0 Yes [id number] 15ug Use 2 mL [facility] L 15 mcg/2 1-05 as ity of mL 00:00: directed [place] nebulizer 00 in the Medical solution morning Branch and 2 mL in the evening. ipratropium 2022-0 Yes [id number] .5mg Inhale 2.5 [facility] 0.02 % 1-05 mL every 4 ity of nebulizer 00:00: (four) [place] solution 00 hours as Medical needed for Branch Wheezing or Shortness of Breath. albuterol 0 Yes [id number] 2{puff} Inhale 2 [facility] 90 1-05 Puffs ity of mcg/actuati 00:00: every 6 [place] as on inhaler 00 (six) Medical hours as Branch needed for Wheezing or Shortness of Breath. albuterol 0 Yes [id number] 2.5mg Inhale 3 [facility] 2.5 mg /3 1-05 mL every 2 ity of mL (0.083 00:00: (two) [place] %) 00 hours as Medical nebulizer needed for Bran ch solution Shortness of Breath or Wheezing. cloNIDine Yes [id number] .2mg Take 1 [facility] nivers 0.2 mg 1-05 tablet by ity of tablet 00:00: mouth 3 [place] 00 (three) Medical times Branch daily as needed (Uncontrol led Hypertensi on). Take 1 Tab if BP > 150/90 NIFEdipine Yes [id number] 30mg Take 1 [facility] nivers ER 30 mg 1-05 tablet by ity of tablet 00:00: mouth in [place] 00 the Medical morning. Branch levothyroxi Yes [id number] 150ug Take 1 [facility] ne 150 mcg 1-05 tablet by ity of tablet 00:00: mouth [place] 00 every Medical morning. Branch tamsulosin Yes [id number] .4mg Take 1 [facility] 0.4 mg 24 1-05 9102 capsule by ity of hr capsule 00:00: mouth in [place] as 00 the Medical morning. Branch budesonide 0 Yes [id number] .5mg Inhale 2 [facility] 0.5 mg/2 mL 1-05 mL in the ity of nebulizer 00:00: morning [place] solution 00 and 2 mL Medical in the Branch evening. traZODone 0 Yes [id number] 50mg Take 1 [facility] nivers 50 mg 1-05 tablet by ity of tablet 00:00: mouth at [place] 00 bedtime. Medical Branch doxepin 25 2022-0 Yes [id number] 25mg Take 1 [facility] mg capsule 1-05 capsule by ity of 00:00: mouth at [place] 00 bedtime. Medical Branch glipiZIDE Yes [id number] 2.5mg Take 1 [facility] nivers XL 2.5 [...] Dr Rx, ~2 mths ago arformotero Yes [id number] 15ug Use 2 mL [facility] L 15 mcg/2 1-05 as ity of mL 00:00: directed [place] nebulizer 00 in the Medical solution morning Branch and 2 mL in the evening. ipratropium Yes [id number] .5mg Inhale 2.5 [facility] 0.02 % 1-05 mL every 4 ity of nebulizer 00:00: (four) [place] solution 00 hours as Medical needed for Branch Wheezing or Shortness of Breath. albuterol Yes [id number] 2{puff} Inhale 2 [facility] 90 1-05 Puffs ity of mcg/actuati 00:00: every 6 [place] as on inhaler 00 (six) Medical hours as Branch needed for Wheezing or Shortness of Breath. albuterol Yes [id number] 2.5mg Inhale 3 [facility] 2.5 mg /3 1-05 mL every 2 ity of mL (0.083 00:00: (two) [place] %) 00 hours as Medical nebulizer needed for Bran ch solution Shortness of Breath or Wheezing. cloNIDine Yes [id number] .2mg Take 1 [facility] nivers 0.2 mg 1-05 tablet by ity of tablet 00:00: mouth 3 [place] 00 (three) Medical times Branch daily as needed (Uncontrol led Hypertensi on). Take 1 Tab if BP > 150/90 NIFEdipine Yes [id number] 30mg Take 1 [facility] nivers ER 30 mg 1-05 tablet by ity of tablet 00:00: mouth in [place] 00 the Medical morning. Branch levothyroxi Yes [id number] 150ug Take 1 [facility] ne 150 mcg 1-05 tablet by ity of tablet 00:00: mouth [place] 00 every Medical morning. Branch tamsulosin Yes [id number] .4mg Take 1 [facility] 0.4 mg 24 1-05 9102 capsule by ity of hr capsule 00:00: mouth in [place] as 00 the Medical morning. Branch budesonide Yes [id number] .5mg Inhale 2 [facility] 0.5 mg/2 mL 1-05 mL in the ity of nebulizer 00:00: morning [place] solution 00 and 2 mL Medical in the Branch evening. traZODone 0 Yes [id number] 50mg Take 1 [facility] nivers 50 mg 1-05 tablet by ity of tablet 00:00: mouth at [place] 00 bedtime. Medical Branch doxepin 25 Yes [id number] 25mg Take 1 [facility] mg capsule 1-05 capsule by ity of 00:00: mouth at [place] 00 bedtime. Medical Branch glipiZIDE Yes [id number] 2.5mg Take 1 [facility] nivers XL 2.5 [...] Rx, ~2 mths ago arformotero 0 Yes [id number] 15ug Use 2 mL [facility] L 15 mcg/2 1-05 as ity of mL 00:00: directed [place] nebulizer 00 in the Medical solution morning Branch and 2 mL in the evening. ipratropium 0 Yes [id number] .5mg Inhale 2.5 [facility] 0.02 % 1-05 mL every 4 ity of nebulizer 00:00: (four) [place] solution 00 hours as Medical needed for Branch Wheezing or Shortness of Breath. albuterol 0 Yes [id number] 2{puff} Inhale 2 [facility] 90 1-05 Puffs ity of mcg/actuati 00:00: every 6 [place] as on inhaler 00 (six) Medical hours as Branch needed for Wheezing or Shortness of Breath. albuterol 0 Yes [id number] 2.5mg Inhale 3 [facility] 2.5 mg /3 1-05 mL every 2 ity of mL (0.083 00:00: (two) [place] %) 00 hours as Medical nebulizer needed for Bran ch solution Shortness of Breath or Wheezing. cloNIDine 0 Yes [id number] .2mg Take 1 [facility] nivers 0.2 mg 1-05 tablet by ity of tablet 00:00: mouth 3 [place] 00 (three) Medical times Branch daily as needed (Uncontrol led Hypertensi on). Take 1 Tab if BP > 150/90 NIFEdipine 2022-0 Yes [id number] 30mg Take 1 [facility] nivers ER 30 mg 1-05 tablet by ity of tablet 00:00: mouth in [place] 00 the Medical morning. Branch levothyroxi 0 Yes [id number] 150ug Take 1 [facility] ne 150 mcg 1-05 tablet by ity of tablet 00:00: mouth [place] 00 every Medical morning. Branch tamsulosin 0 Yes [id number] .4mg Take 1 [facility] 0.4 mg 24 1-05 9102 capsule by ity of hr capsule 00:00: mouth in [place] as 00 the Medical morning. Branch budesonide 0 Yes [id number] .5mg Inhale 2 [facility] 0.5 mg/2 mL 1-05 mL in the ity of nebulizer 00:00: morning [place] solution 00 and 2 mL Medical in the Branch evening. traZODone 2022-0 Yes [id number] 50mg Take 1 [facility] nivers 50 mg 1-05 tablet by ity of tablet 00:00: mouth at [place] 00 bedtime. Medical Branch doxepin 25 2022-0 Yes [id number] 25mg Take 1 [facility] mg capsule 1-05 capsule by ity of 00:00: mouth at [place] 00 bedtime. Medical Branch glipiZIDE 2022-0 Yes [id number] 2.5mg Take 1 [facility] nivers XL 2.5 [...] Rx, ~2 mths ago arformotero 0 Yes [id number] 15ug Use 2 mL [facility] L 15 mcg/2 1-05 as ity of mL 00:00: directed [place] nebulizer 00 in the Medical solution morning Branch and 2 mL in the evening. ipratropium 0 Yes [id number] .5mg Inhale 2.5 [facility] 0.02 % 1-05 mL every 4 ity of nebulizer 00:00: (four) [place] solution 00 hours as Medical needed for Branch Wheezing or Shortness of Breath. albuterol Yes [id number] 2{puff} Inhale 2 [facility] 90 1-05 Puffs ity of mcg/actuati 00:00: every 6 [place] as on inhaler 00 (six) Medical hours as Branch needed for Wheezing or Shortness of Breath. albuterol Yes [id number] 2.5mg Inhale 3 [facility] 2.5 mg /3 1-05 mL every 2 ity of mL (0.083 00:00: (two) [place] %) 00 hours as Medical nebulizer needed for Bran ch solution Shortness of Breath or Wheezing. cloNIDine Yes [id number] .2mg Take 1 [facility] nivers 0.2 mg 1-05 tablet by ity of tablet 00:00: mouth 3 [place] 00 (three) Medical times Branch daily as needed (Uncontrol led Hypertensi on). Take 1 Tab if BP > 150/90 NIFEdipine 2022-0 Yes [id number] 30mg Take 1 [facility] nivers ER 30 mg 1-05 tablet by ity of tablet 00:00: mouth in [place] 00 the Medical morning. Branch levothyroxi 2022-0 Yes [id number] 150ug Take 1 [facility] ne 150 mcg 1-05 tablet by ity of tablet 00:00: mouth [place] 00 every Medical morning. Branch tamsulosin 0 Yes [id number] .4mg Take 1 [facility] 0.4 mg 24 1-05 9102 capsule by ity of hr capsule 00:00: mouth in [place] as 00 the Medical morning. Branch budesonide Yes [id number] .5mg Inhale 2 [facility] 0.5 mg/2 mL 1-05 mL in the ity of nebulizer 00:00: morning [place] solution 00 and 2 mL Medical in the Branch evening. traZODone 0 Yes [id number] 50mg Take 1 [facility] nivers 50 mg 1-05 tablet by ity of tablet 00:00: mouth at [place] 00 bedtime. Medical Branch doxepin 25 2022-0 Yes [id number] 25mg Take 1 [facility] mg capsule 1-05 capsule by ity of 00:00: mouth at [place] 00 bedtime. Medical Branch glipiZIDE Yes [id number] 2.5mg Take 1 U nivers XL 2.5 [...] Dr Rx, ~2 mths ago arformotero Yes [id number] 15ug Use 2 mL [facility] L 15 mcg/2 1-05 as ity of mL 00:00: directed [place] nebulizer 00 in the Medical solution morning Branch and 2 mL in the evening. ipratropium Yes [id number] .5mg Inhale 2.5 [facility] 0.02 % 1-05 mL every 4 ity of nebulizer 00:00: (four) [place] solution 00 hours as Medical needed for Branch Wheezing or Shortness of Breath. albuterol Yes [id number] 2{puff} Inhale 2 [facility] 90 1-05 Puffs ity of mcg/actuati 00:00: every 6 [place] as on inhaler 00 (six) Medical hours as Branch needed for Wheezing or Shortness of Breath. albuterol Yes [id number] 2.5mg Inhale 3 [facility] 2.5 mg /3 1-05 mL every 2 ity of mL (0.083 00:00: (two) [place] %) 00 hours as Medical nebulizer needed for Bran ch solution Shortness of Breath or Wheezing. cloNIDine Yes [id number] .2mg Take 1 [facility] nivers 0.2 mg 1-05 tablet by ity of tablet 00:00: mouth 3 [place] 00 (three) Medical times Branch daily as needed (Uncontrol led Hypertensi on). Take 1 Tab if BP > 150/90 NIFEdipine 2022-0 Yes [id number] 30mg Take 1 U nivers ER 30 mg 1-05 tablet by ity of tablet 00:00: mouth in [place] 00 the Medical morning. Branch levothyroxi 0 Yes [id number] 150ug Take 1 [facility] ne 150 mcg 1-05 tablet by ity of tablet 00:00: mouth [place] 00 every Medical morning. Branch tamsulosin 0 Yes [id number] .4mg Take 1 [facility] 0.4 mg 24 1-05 9102 capsule by ity of hr capsule 00:00: mouth in [place] as 00 the Medical morning. Branch budesonide Yes [id number] .5mg Inhale 2 [facility] 0.5 mg/2 mL 1-05 mL in the ity of nebulizer 00:00: morning [place] solution 00 and 2 mL Medical in the Branch evening. traZODone Yes [id number] 50mg Take 1 [facility] nivers 50 mg 1-05 tablet by ity of tablet 00:00: mouth at [place] 00 bedtime. Medical Branch doxepin 25 0 Yes [id number] 25mg Take 1 [facility] mg capsule 1-05 capsule by ity of 00:00: mouth at [place] [address] bedtime. Medical Branch glipiZIDE 0 Yes [id number] 2.5mg Take 1 [facility] nivers XL 2.5 mg 1-05 tablet by ity o f 24 hr 00:00: mouth in [place] tablet 00 the Medical morning Branch and 1 tablet in the evening. bumetanide Yes 1mg Take 1 [facility] rs 1 mg tablet 1-05 tablet by ity of 00:00: mouth [place] 00 every Medical morning Branch and evening. Indication s: reports kidney Dr Rx, ~2 mths ago arformotero 2022-0 Yes [id number] 15ug Use 2 mL [facility] L 15 mcg/2 1-05 as ity of mL 00:00: directed [place] nebulizer 00 in the Medical solution morning Branch and 2 mL in the evening. ipratropium 2022-0 Yes [id number] .5mg Inhale 2.5 [facility] 0.02 % 1-05 mL every 4 ity of nebulizer 00:00: (four) [place] solution 00 hours as Medical needed for Branch Wheezing or Shortness of Breath. albuterol Yes [id number] 2{puff} Inhale 2 [facility] 90 1-05 Puffs ity of mcg/actuati 00:00: every 6 [place] as on inhaler 00 (six) Medical hours as Branch needed for Wheezing or Shortness of Breath. albuterol 0 Yes [id number] 2.5mg Inhale 3 [facility] 2.5 mg /3 1-05 mL every 2 ity of mL (0.083 00:00: (two) [place] %) 00 hours as Medical nebulizer needed for Bran ch solution Shortness of Breath or Wheezing. cloNIDine Yes [id number] .2mg Take 1 [facility] nivers 0.2 mg 1-05 tablet by ity of tablet 00:00: mouth 3 [place] 00 (three) Medical times Branch daily as needed (Uncontrol led Hypertensi on). Take 1 Tab if BP > 150/90 NIFEdipine Yes [id number] 30mg Take 1 [facility] nivers ER 30 mg 1-05 tablet by ity of tablet 00:00: mouth in [place] 00 the Medical morning. Branch levothyroxi Yes [id number] 150ug Take 1 [facility] ne 150 mcg 1-05 tablet by ity of tablet 00:00: mouth [place] 00 every Medical morning. Branch tamsulosin Yes [id number] .4mg Take 1 [facility] 0.4 mg 24 1-05 9102 capsule by ity of hr capsule 00:00: mouth in [place] as 00 the Medical morning. Branch budesonide Yes [id number] .5mg Inhale 2 [facility] 0.5 mg/2 mL 1-05 mL in the ity of nebulizer 00:00: morning [place] solution 00 and 2 mL Medical in the Branch evening. traZODone 0 Yes [id number] 50mg Take 1 [facility] nivers 50 mg 1-05 tablet by ity of tablet 00:00: mouth at [place] 00 bedtime. Medical Branch doxepin 25 0 Yes [id number] 25mg Take 1 [facility] mg capsule 1-05 capsule by ity of 00:00: mouth at [place] 00 bedtime. Medical Branch glipiZIDE 0 Yes [id number] 2.5mg Take 1 [facility] nivers XL 2.5 [...] Dr Rx, ~2 mths ago arformotero Yes [id number] 15ug Use 2 mL [facility] L 15 mcg/2 1-05 as ity of mL 00:00: directed [place] nebulizer 00 in the Medical solution morning Branch and 2 mL in the evening. ipratropium Yes [id number] .5mg Inhale 2.5 [facility] 0.02 % 1-05 mL every 4 ity of nebulizer 00:00: (four) [place] solution 00 hours as Medical needed for Branch Wheezing or Shortness of Breath. albuterol Yes [id number] 2{puff} Inhale 2 [facility] 90 1-05 Puffs ity of mcg/actuati 00:00: every 6 [place] as on inhaler 00 (six) Medical hours as Branch needed for Wheezing or Shortness of Breath. albuterol Yes [id number] 2.5mg Inhale 3 [facility] 2.5 mg /3 1-05 mL every 2 ity of mL (0.083 00:00: (two) [place] %) 00 hours as Medical nebulizer needed for Bran ch solution Shortness of Breath or Wheezing. cloNIDine Yes [id number] .2mg Take 1 [facility] nivers 0.2 mg 1-05 tablet by ity of tablet 00:00: mouth 3 [place] 00 (three) Medical times Branch daily as needed (Uncontrol led Hypertensi on). Take 1 Tab if BP > 150/90 NIFEdipine Yes [id number] 30mg Take 1 [facility] nivers ER 30 mg 1-05 tablet by ity of tablet 00:00: mouth in [place] 00 the Medical morning. Branch levothyroxi Yes [id number] 150ug Take 1 [facility] ne 150 mcg 1-05 tablet by ity of tablet 00:00: mouth [place] 00 every Medical morning. Branch tamsulosin Yes [id number] .4mg Take 1 [facility] 0.4 mg 24 1-05 9102 capsule by ity of hr capsule 00:00: mouth in [place] as 00 the Medical morning. Branch budesonide 0 Yes [id number] .5mg Inhale 2 [facility] 0.5 mg/2 mL 1-05 mL in the ity of nebulizer 00:00: morning [place] solution 00 and 2 mL Medical in the Branch evening. traZODone 0 Yes [id number] 50mg Take 1 [facility] nivers 50 mg 1-05 tablet by ity of tablet 00:00: mouth at [place] 00 bedtime. Medical Branch doxepin 25 2022-0 Yes [id number] 25mg Take 1 [facility] mg capsule 1-05 capsule by ity of 00:00: mouth at [place] 00 bedtime. Medical Branch glipiZIDE Yes [id number] 2.5mg Take 1 [facility] nivers XL 2.5 [...] Rx, ~2 mths ago arformotero 0 Yes [id number] 15ug Use 2 mL [facility] L 15 mcg/2 1-05 as ity of mL 00:00: directed [place] nebulizer 00 in the Medical solution morning Branch and 2 mL in the evening. ipratropium 0 Yes [id number] .5mg Inhale 2.5 [facility] 0.02 % 1-05 mL every 4 ity of nebulizer 00:00: (four) [place] solution 00 hours as Medical needed for Branch Wheezing or Shortness of Breath. albuterol 2022-0 Yes [id number] 2{puff} Inhale 2 [facility] 90 1-05 Puffs ity of mcg/actuati 00:00: every 6 [place] as on inhaler 00 (six) Medical hours as Branch needed for Wheezing or Shortness of Breath. albuterol 2022-0 Yes [id number] 2.5mg Inhale 3 [facility] 2.5 mg /3 1-05 mL every 2 ity of mL (0.083 00:00: (two) [place] %) 00 hours as Medical nebulizer needed for Bran ch solution Shortness of Breath or Wheezing. cloNIDine Yes [id number] .2mg Take 1 [facility] nivers 0.2 mg 1-05 tablet by ity of tablet 00:00: mouth 3 [place] 00 (three) Medical times Branch daily as needed (Uncontrol led Hypertensi on). Take 1 Tab if BP > 150/90 NIFEdipine Yes [id number] 30mg Take 1 [facility] nivers ER 30 mg 1-05 tablet by ity of tablet 00:00: mouth in [place] 00 the Medical morning. Branch levothyroxi Yes [id number] 150ug Take 1 [facility] ne 150 mcg 1-05 tablet by ity of tablet 00:00: mouth [place] 00 every Medical morning. Branch tamsulosin Yes [id number] .4mg Take 1 [facility] 0.4 mg 24 1-05 9102 capsule by ity of hr capsule 00:00: mouth in [place] as 00 the Medical morning. Branch budesonide Yes [id number] .5mg Inhale 2 [facility] 0.5 mg/2 mL 1-05 mL in the ity of nebulizer 00:00: morning [place] solution 00 and 2 mL Medical in the Branch evening. traZODone Yes [id number] 50mg Take 1 [facility] nivers 50 mg 1-05 tablet by ity of tablet 00:00: mouth at [place] 00 bedtime. Medical Branch doxepin 25 Yes [id number] 25mg Take 1 [facility] mg capsule 1-05 capsule by ity of 00:00: mouth at [place] 00 bedtime. Medical Branch glipiZIDE Yes [id number] 2.5mg Take 1 [facility] nivers XL 2.5 [...] Dr Rx, ~2 mths ago arformotero Yes [id number] 15ug Use 2 mL [facility] L 15 mcg/2 1-05 as ity of mL 00:00: directed [place] nebulizer 00 in the Medical solution morning Branch and 2 mL in the evening. ipratropium Yes [id number] .5mg Inhale 2.5 [facility] 0.02 % 1-05 mL every 4 ity of nebulizer 00:00: (four) [place] solution 00 hours as Medical needed for Branch Wheezing or Shortness of Breath. albuterol Yes [id number] 2{puff} Inhale 2 [facility] 90 1-05 Puffs ity of mcg/actuati 00:00: every 6 [place] as on inhaler 00 (six) Medical hours as Branch needed for Wheezing or Shortness of Breath. albuterol Yes [id number] 2.5mg Inhale 3 [facility] 2.5 mg /3 1-05 mL every 2 ity of mL (0.083 00:00: (two) [place] %) 00 hours as Medical nebulizer needed for Bran ch solution Shortness of Breath or Wheezing. cloNIDine Yes [id number] .2mg Take 1 [facility] nivers 0.2 mg 1-05 tablet by ity of tablet 00:00: mouth 3 [place] 00 (three) Medical times Branch daily as needed (Uncontrol led Hypertensi on). Take 1 Tab if BP > 150/90 NIFEdipine Yes [id number] 30mg Take 1 [facility] nivers ER 30 mg 1-05 tablet by ity of tablet 00:00: mouth in [place] 00 the Medical morning. Branch levothyroxi Yes [id number] 150ug Take 1 [facility] ne 150 mcg 1-05 tablet by ity of tablet 00:00: mouth [place] 00 every Medical morning. Branch tamsulosin Yes [id number] .4mg Take 1 [facility] 0.4 mg 24 1-05 9102 capsule by ity of hr capsule 00:00: mouth in [place] as 00 the Medical morning. Branch budesonide Yes [id number] .5mg Inhale 2 [facility] 0.5 mg/2 mL 1-05 mL in the ity of nebulizer 00:00: morning [place] solution 00 and 2 mL Medical in the Branch evening. traZODone Yes [id number] 50mg Take 1 [facility] nivers 50 mg 1-05 tablet by ity of tablet 00:00: mouth at [place] 00 bedtime. Medical Branch doxepin 25 Yes [id number] 25mg Take 1 [facility] mg capsule 1-05 capsule by ity of 00:00: mouth at [place] 00 bedtime. Medical Branch glipiZIDE Yes [id number] 2.5mg Take 1 [facility] nivers XL 2.5 [...] Dr Rx, ~2 mths ago arformotero Yes [id number] 15ug Use 2 mL [facility] L 15 mcg/2 1-05 as ity of mL 00:00: directed [place] nebulizer 00 in the Medical solution morning Branch and 2 mL in the evening. ipratropium Yes [id number] .5mg Inhale 2.5 [facility] 0.02 % 1-05 mL every 4 ity of nebulizer 00:00: (four) [place] solution 00 hours as Medical needed for Branch Wheezing or Shortness of Breath. albuterol Yes [id number] 2{puff} Inhale 2 [facility] 90 1-05 Puffs ity of mcg/actuati 00:00: every 6 [place] as on inhaler 00 (six) Medical hours as Branch needed for Wheezing or Shortness of Breath. albuterol Yes [id number] 2.5mg Inhale 3 [facility] 2.5 mg /3 1-05 mL every 2 ity of mL (0.083 00:00: (two) [place] %) 00 hours as Medical nebulizer needed for Bran ch solution Shortness of Breath or Wheezing. cloNIDine Yes [id number] .2mg Take 1 [facility] nivers 0.2 mg 1-05 tablet by ity of tablet 00:00: mouth 3 [place] 00 (three) Medical times Branch daily as needed (Uncontrol led Hypertensi on). Take 1 Tab if BP > 150/90 NIFEdipine Yes [id number] 30mg Take 1 [facility] nivers ER 30 mg 1-05 tablet by ity of tablet 00:00: mouth in [place] 00 the Medical morning. Branch levothyroxi Yes [id number] 150ug Take 1 [facility] ne 150 mcg 1-05 tablet by ity of tablet 00:00: mouth [place] 00 every Medical morning. Branch tamsulosin Yes [id number] .4mg Take 1 [facility] 0.4 mg 24 1-05 9102 capsule by ity of hr capsule 00:00: mouth in [place] as 00 the Medical morning. Branch budesonide Yes [id number] .5mg Inhale 2 [facility] 0.5 mg/2 mL 1-05 mL in the ity of nebulizer 00:00: morning [place] solution 00 and 2 mL Medical in the Branch evening. traZODone Yes [id number] 50mg Take 1 [facility] nivers 50 mg 1-05 tablet by ity of tablet 00:00: mouth at [place] 00 bedtime. Medical Branch doxepin 25 Yes [id number] 25mg Take 1 [facility] mg capsule 1-05 capsule by ity of 00:00: mouth at [place] 00 bedtime. Medical Branch glipiZIDE Yes [id number] 2.5mg Take 1 [facility] n[facility] XL 2.5 mg 1-05 tablet by ity o f 24 hr 00:00: mouth in [place] tablet 00 the Medical morning Branch and 1 tablet in the evening. bumetanide Yes 1mg Take 1 [facility] rs 1 mg tablet 1-05 tablet by ity of 00:00: mouth [place] 00 every Medical morning Branch and evening. Indication s: reports kidney Dr Rx, ~2 mths ago arformotero 0 Yes [id number] 15ug Use 2 mL [facility] L 15 mcg/2 1-05 as ity of mL 00:00: directed [place] nebulizer 00 in the Medical solution morning Branch and 2 mL in the evening. ipratropium 0 Yes [id number] .5mg Inhale 2.5 [facility] 0.02 % 1-05 mL every 4 ity of nebulizer 00:00: (four) [place] solution 00 hours as Medical needed for Branch Wheezing or Shortness of Breath. albuterol 0 Yes [id number] 2{puff} Inhale 2 [facility] 90 1-05 Puffs ity of mcg/actuati 00:00: every 6 [place] as on inhaler 00 (six) Medical hours as Branch needed for Wheezing or Shortness of Breath. albuterol Yes [id number] 2.5mg Inhale 3 [facility] 2.5 mg /3 1-05 mL every 2 ity of mL (0.083 00:00: (two) [place] %) 00 hours as Medical nebulizer needed for Bran ch solution Shortness of Breath or Wheezing. cloNIDine Yes [id number] .2mg Take 1 [facility] nivers 0.2 mg 1-05 tablet by ity of tablet 00:00: mouth 3 [place] 00 (three) Medical times Branch daily as needed (Uncontrol led Hypertensi on). Take 1 Tab if BP > 150/90 NIFEdipine 0 Yes [id number] 30mg Take 1 [facility] nivers ER 30 mg 1-05 tablet by ity of tablet 00:00: mouth in [place] 00 the Medical morning. Branch levothyroxi Yes [id number] 150ug Take 1 [facility] ne 150 mcg 1-05 tablet by ity of tablet 00:00: mouth [place] 00 every Medical morning. Branch tamsulosin Yes [id number] .4mg Take 1 [facility] 0.4 mg 24 1-05 9102 capsule by ity of hr capsule 00:00: mouth in [place] as 00 the Medical morning. Branch budesonide Yes [id number] .5mg Inhale 2 [facility] 0.5 mg/2 mL 1-05 mL in the ity of nebulizer 00:00: morning [place] solution 00 and 2 mL Medical in the Branch evening. traZODone Yes [id number] 50mg Take 1 [facility] nivers 50 mg 1-05 tablet by ity of tablet 00:00: mouth at [place] 00 bedtime. Medical Branch doxepin 25 Yes [id number] 25mg Take 1 [facility] mg capsule 1-05 capsule by ity of 00:00: mouth at [place] 00 bedtime. Medical Branch glipiZIDE Yes [id number] 2.5mg Take 1 [facility] nivers XL 2.5 [...] Dr Rx, ~2 mths ago arformotero Yes [id number] 15ug Use 2 mL [facility] L 15 mcg/2 1-05 as ity of mL 00:00: directed [place] nebulizer 00 in the Medical solution morning Branch and 2 mL in the evening. ipratropium Yes [id number] .5mg Inhale 2.5 [facility] 0.02 % 1-05 mL every 4 ity of nebulizer 00:00: (four) [place] solution 00 hours as Medical needed for Branch Wheezing or Shortness of Breath. albuterol Yes [id number] 2{puff} Inhale 2 [facility] 90 1-05 Puffs ity of mcg/actuati 00:00: every 6 [place] as on inhaler 00 (six) Medical hours as Branch needed for Wheezing or Shortness of Breath. albuterol Yes [id number] 2.5mg Inhale 3 [facility] 2.5 mg /3 1-05 mL every 2 ity of mL (0.083 00:00: (two) [place] %) 00 hours as Medical nebulizer needed for Bran ch solution Shortness of Breath or Wheezing. cloNIDine Yes [id number] .2mg Take 1 [facility] nivers 0.2 mg 1-05 tablet by ity of tablet 00:00: mouth 3 [place] 00 (three) Medical times Branch daily as needed (Uncontrol led Hypertensi on). Take 1 Tab if BP > 150/90 NIFEdipine Yes [id number] 30mg Take 1 [facility] nivers ER 30 mg 1-05 tablet by ity of tablet 00:00: mouth in [place] 00 the Medical morning. Branch levothyroxi Yes [id number] 150ug Take 1 [facility] ne 150 mcg 1-05 tablet by ity of tablet 00:00: mouth [place] 00 every Medical morning. Branch tamsulosin Yes [id number] .4mg Take 1 [facility] 0.4 mg 24 1-05 9102 capsule by ity of hr capsule 00:00: mouth in [place] as 00 the Medical morning. Branch budesonide 0 Yes [id number] .5mg Inhale 2 [facility] 0.5 mg/2 mL 1-05 mL in the ity of nebulizer 00:00: morning [place] solution 00 and 2 mL Medical in the Branch evening. traZODone 0 Yes [id number] 50mg Take 1 [facility] nivers 50 mg 1-05 tablet by ity of tablet 00:00: mouth at [place] 00 bedtime. Medical Branch doxepin 25 0 Yes [id number] 25mg Take 1 [facility] mg capsule 1-05 capsule by ity of 00:00: mouth at [place] 00 bedtime. Medical Branch glipiZIDE Yes [id number] 2.5mg Take 1 [facility] nivers XL 2.5 [...] Rx, ~2 mths ago arformotero 0 Yes [id number] 15ug Use 2 mL [facility] L 15 mcg/2 1-05 as ity of mL 00:00: directed [place] nebulizer 00 in the Medical solution morning Branch and 2 mL in the evening. ipratropium Yes [id number] .5mg Inhale 2.5 [facility] 0.02 % 1-05 mL every 4 ity of nebulizer 00:00: (four) [place] solution 00 hours as Medical needed for Branch Wheezing or Shortness of Breath. albuterol Yes [id number] 2{puff} Inhale 2 [facility] 90 1-05 Puffs ity of mcg/actuati 00:00: every 6 [place] as on inhaler 00 (six) Medical hours as Branch needed for Wheezing or Shortness of Breath. albuterol 0 Yes [id number] 2.5mg Inhale 3 [facility] 2.5 mg /3 1-05 mL every 2 ity of mL (0.083 00:00: (two) [place] %) 00 hours as Medical nebulizer needed for Bran ch solution Shortness of Breath or Wheezing. cloNIDine Yes [id number] .2mg Take 1 [facility] nivers 0.2 mg 1-05 tablet by ity of tablet 00:00: mouth 3 [place] 00 (three) Medical times Branch daily as needed (Uncontrol led Hypertensi on). Take 1 Tab if BP > 150/90 NIFEdipine 0 Yes [id number] 30mg Take 1 [facility] nivers ER 30 mg 1-05 tablet by ity of tablet 00:00: mouth in [place] 00 the Medical morning. Branch levothyroxi Yes [id number] 150ug Take 1 [facility] ne 150 mcg 1-05 tablet by ity of tablet 00:00: mouth [place] 00 every Medical morning. Branch tamsulosin Yes [id number] .4mg Take 1 [facility] 0.4 mg 24 1-05 9102 capsule by ity of hr capsule 00:00: mouth in [place] as 00 the Medical morning. Branch budesonide Yes [id number] .5mg Inhale 2 [facility] 0.5 mg/2 mL 1-05 mL in the ity of nebulizer 00:00: morning [place] solution 00 and 2 mL Medical in the Branch evening. traZODone Yes [id number] 50mg Take 1 [facility] nivers 50 mg 1-05 tablet by ity of tablet 00:00: mouth at [place] 00 bedtime. Medical Branch doxepin 25 Yes [id number] 25mg Take 1 [facility] mg capsule 1-05 capsule by ity of 00:00: mouth at [place] 00 bedtime. Medical Branch glipiZIDE 0 Yes [id number] 2.5mg Take 1 [facility] nivers XL 2.5 [...] Rx, ~2 mths ago arformotero 0 Yes [id number] 15ug Use 2 mL [facility] L 15 mcg/2 1-05 as ity of mL 00:00: directed [place] nebulizer 00 in the Medical solution morning Branch and 2 mL in the evening. ipratropium Yes [id number] .5mg Inhale 2.5 [facility] 0.02 % 1-05 mL every 4 ity of nebulizer 00:00: (four) [place] solution 00 hours as Medical needed for Branch Wheezing or Shortness of Breath. albuterol Yes [id number] 2{puff} Inhale 2 [facility] 90 1-05 Puffs ity of mcg/actuati 00:00: every 6 [place] as on inhaler 00 (six) Medical hours as Branch needed for Wheezing or Shortness of Breath. albuterol Yes [id number] 2.5mg Inhale 3 [facility] 2.5 mg /3 1-05 mL every 2 ity of mL (0.083 00:00: (two) [place] %) 00 hours as Medical nebulizer needed for Bran ch solution Shortness of Breath or Wheezing. cloNIDine Yes [id number] .2mg Take 1 [facility] nivers 0.2 mg 1-05 tablet by ity of tablet 00:00: mouth 3 [place] 00 (three) Medical times Branch daily as needed (Uncontrol led Hypertensi on). Take 1 Tab if BP > 150/90 NIFEdipine Yes [id number] 30mg Take 1 [facility] nivers ER 30 mg 1-05 tablet by ity of tablet 00:00: mouth in [place] 00 the Medical morning. Branch levothyroxi Yes [id number] 150ug Take 1 [facility] ne 150 mcg 1-05 tablet by ity of tablet 00:00: mouth [place] 00 every Medical morning. Branch tamsulosin Yes [id number] .4mg Take 1 [facility] 0.4 mg 24 1-05 9102 capsule by ity of hr capsule 00:00: mouth in [place] as 00 the Medical morning. Branch budesonide Yes [id number] .5mg Inhale 2 [facility] 0.5 mg/2 mL 1-05 mL in the ity of nebulizer 00:00: morning [place] solution 00 and 2 mL Medical in the Branch evening. traZODone 0 Yes [id number] 50mg Take 1 [facility] nivers 50 mg 1-05 tablet by ity of tablet 00:00: mouth at [place] 00 bedtime. Medical Branch doxepin 25 0 Yes [id number] 25mg Take 1 [facility] mg capsule 1-05 capsule by ity of 00:00: mouth at [place] 00 bedtime. Medical Branch glipiZIDE Yes [id number] 2.5mg Take 1 [facility] n[facility] XL 2.5 mg 1-05 tablet by ity o f 24 hr 00:00: mouth in [place] tablet 00 the Medical morning Branch and 1 tablet in the evening. bumetanide Yes 1mg Take 1 [facility] rs 1 mg tablet 1-05 tablet by ity of 00:00: mouth [place] 00 every Medical morning Branch and evening. Indication s: reports kidney Dr Rx, ~2 mths ago arformotero Yes [id number] 15ug Use 2 mL [facility] L 15 mcg/2 1-05 as ity of mL 00:00: directed [place] nebulizer 00 in the Medical solution morning Branch and 2 mL in the evening. ipratropium Yes [id number] .5mg Inhale 2.5 [facility] 0.02 % 1-05 mL every 4 ity of nebulizer 00:00: (four) [place] solution 00 hours as Medical needed for Branch Wheezing or Shortness of Breath. albuterol Yes [id number] 2{puff} Inhale 2 [facility] 90 1-05 Puffs ity of mcg/actuati 00:00: every 6 [place] as on inhaler 00 (six) Medical hours as Branch needed for Wheezing or Shortness of Breath. albuterol Yes [id number] 2.5mg Inhale 3 [facility] 2.5 mg /3 1-05 mL every 2 ity of mL (0.083 00:00: (two) [place] %) 00 hours as Medical nebulizer needed for Bran ch solution Shortness of Breath or Wheezing. cloNIDine Yes [id number] .2mg Take 1 [facility] nivers 0.2 mg 1-05 tablet by ity of tablet 00:00: mouth 3 [place] 00 (three) Medical times Branch daily as needed (Uncontrol led Hypertensi on). Take 1 Tab if BP > 150/90 NIFEdipine Yes [id number] 30mg Take 1 [facility] nivers ER 30 mg 1-05 tablet by ity of tablet 00:00: mouth in [place] 00 the Medical morning. Branch levothyroxi Yes [id number] 150ug Take 1 [facility] ne 150 mcg 1-05 tablet by ity of tablet 00:00: mouth [place] 00 every Medical morning. Branch tamsulosin 0 Yes [id number] .4mg Take 1 [facility] 0.4 mg 24 1-05 9102 capsule by ity of hr capsule 00:00: mouth in [place] as 00 the Medical morning. Branch budesonide 2022-0 Yes [id number] .5mg Inhale 2 [facility] 0.5 mg/2 mL 1-05 mL in the ity of nebulizer 00:00: morning [place] solution 00 and 2 mL Medical in the Branch evening. traZODone 2022-0 Yes [id number] 50mg Take 1 [facility] nivers 50 mg 1-05 tablet by ity of tablet 00:00: mouth at [place] 00 bedtime. Medical Branch doxepin 25 2022-0 Yes [id number] 25mg Take 1 [facility] mg capsule 1-05 capsule by ity of 00:00: mouth at [place] 00 bedtime. Medical Branch glipiZIDE 2022-0 Yes [id number] 2.5mg Take 1 [facility] nivers XL 2.5 [...] Rx, ~2 mths ago arformotero 2022-0 Yes [id number] 15ug Use 2 mL [facility] L 15 mcg/2 1-05 as ity of mL 00:00: directed [place] nebulizer 00 in the Medical solution morning Branch and 2 mL in the evening. ipratropium 2022-0 Yes [id number] .5mg Inhale 2.5 [facility] 0.02 % 1-05 mL every 4 ity of nebulizer 00:00: (four) [place] solution 00 hours as Medical needed for Branch Wheezing or Shortness of Breath. albuterol 2022-0 Yes [id number] 2{puff} Inhale 2 [facility] 90 1-05 Puffs ity of mcg/actuati 00:00: every 6 [place] as on inhaler 00 (six) Medical hours as Branch needed for Wheezing or Shortness of Breath. cloNIDine Yes [id number] .2mg Take 1 [facility] nivers 0.2 mg 1-05 tablet by ity of tablet 00:00: mouth 3 [place] 00 (three) Medical times Branch daily as needed (Uncontrol led Hypertensi on). Take 1 Tab if BP > 150/90 NIFEdipine 0 Yes [id number] 30mg Take 1 [facility] nivers ER 30 mg 1-05 tablet by ity of tablet 00:00: mouth in [place] 00 the Medical morning. Branch levothyroxi Yes [id number] 150ug Take 1 [facility] ne 150 mcg 1-05 tablet by ity of tablet 00:00: mouth [place] 00 every Medical morning. Branch tamsulosin Yes [id number] .4mg Take 1 [facility] 0.4 mg 24 1-05 9102 capsule by ity of hr capsule 00:00: mouth in [place] as 00 the Medical morning. Branch budesonide Yes [id number] .5mg Inhale 2 [facility] 0.5 mg/2 mL 1-05 mL in the ity of nebulizer 00:00: morning [place] solution 00 and 2 mL Medical in the Branch evening. traZODone Yes [id number] 50mg Take 1 [facility] nivers 50 mg 1-05 tablet by ity of tablet 00:00: mouth at [place] 00 bedtime. Medical Branch doxepin 25 0 Yes [id number] 25mg Take 1 [facility] mg capsule 1-05 capsule by ity of 00:00: mouth at [place] 00 bedtime. Medical Branch glipiZIDE 0 Yes [id number] 2.5mg Take 1 [facility] nivers XL 2.5 mg 1-05 tablet by ity o f 24 hr 00:00: mouth in [place] tablet 00 the Medical morning Branch and 1 tablet in the evening. bumetanide Yes 1mg Take 1 [facility] rs 1 mg tablet 1-05 tablet by ity of 00:00: mouth [place] 00 every Medical morning Branch and evening. Indication s: reports kidney Dr Rx, ~2 mths ago arformotero 0 Yes [id number] 15ug Use 2 mL [facility] L 15 mcg/2 1-05 as ity of mL 00:00: directed [place] nebulizer 00 in the Medical solution morning Branch and 2 mL in the evening. ipratropium 2022-0 Yes [id number] .5mg Inhale 2.5 [facility] 0.02 % 1-05 mL every 4 ity of nebulizer 00:00: (four) [place] solution 00 hours as Medical needed for Branch Wheezing or Shortness of Breath. albuterol 2022-0 Yes [id number] 2{puff} Inhale 2 [facility] 90 1-05 Puffs ity of mcg/actuati 00:00: every 6 [place] as on inhaler 00 (six) Medical hours as Branch needed for Wheezing or Shortness of Breath. cloNIDine 0 Yes [id number] .2mg Take 1 [facility] nivers 0.2 mg 1-05 tablet by ity of tablet 00:00: mouth 3 [place] 00 (three) Medical times Branch daily as needed (Uncontrol led Hypertensi on). Take 1 Tab if BP > 150/90 NIFEdipine 2022-0 Yes [id number] 30mg Take 1 U nivers ER 30 mg 1-05 tablet by ity of tablet 00:00: mouth in [place] 00 the Medical morning. Branch levothyroxi 0 Yes [id number] 150ug Take 1 [facility] ne 150 mcg 1-05 tablet by ity of tablet 00:00: mouth [place] 00 every Medical morning. Branch tamsulosin 0 Yes [id number] .4mg Take 1 [facility] 0.4 mg 24 1-05 9102 capsule by ity of hr capsule 00:00: mouth in [place] as 00 the Medical morning. Branch budesonide 2022-0 Yes [id number] .5mg Inhale 2 [facility] 0.5 mg/2 mL 1-05 mL in the ity of nebulizer 00:00: morning [place] solution 00 and 2 mL Medical in the Branch evening. traZODone 2022-0 Yes [id number] 50mg Take 1 [facility] nivers 50 mg 1-05 tablet by ity of tablet 00:00: mouth at [place] 00 bedtime. Medical Branch glipiZIDE 0 Yes [id number] 2.5mg Take 1 [facility] nivers XL 2.5 mg 1-05 tablet by ity o f 24 hr 00:00: mouth in [place] tablet 00 the Medical morning Branch and 1 tablet in the evening. arformotero 2022-0 Yes [id number] 15ug Use 2 mL [facility] L 15 mcg/2 1-05 as ity of mL 00:00: directed [place] nebulizer 00 in the Medical solution morning Branch and 2 mL in the evening. ipratropium Yes [id number] .5mg Inhale 2.5 [facility] 0.02 % 1-05 mL every 4 it[facility] of nebulizer 00:00: (four) [place] solution 00 hours as Medical needed for Branch Wheezing or Shortness of Breath. albuterol Yes [id number] 2{puff} Inhale 2 [facility] 90 1-05 Puffs ity of mcg/actuati 00:00: every 6 [place] as on inhaler 00 (six) Medical hours as Branch needed for Wheezing or Shortness of Breath. cloNIDine Yes [id number] .2mg Take 1 U nivers 0.2 mg 1-05 tablet by ity of tablet 00:00: mouth 3 [place] 00 (three) Medical times Branch daily as needed (Uncontrol led Hypertensi on). Take 1 Tab if BP > 150/90 levothyroxi Yes [id number] 150ug Take 1 [facility] ne 150 mcg 1-05 tablet by ity of tablet 00:00: mouth [place] 00 every Medical morning. Branch tamsulosin Yes [id number] .4mg Take 1 [facility] 0.4 mg 24 1-05 9102 capsule by ity of hr capsule 00:00: mouth in [place] as 00 the Medical morning. Branch budesonide Yes [id number] .5mg Inhale 2 [facility] 0.5 mg/2 mL 1-05 mL in the ity of nebulizer 00:00: morning [place] solution 00 and 2 mL Medical in the Branch evening. traZODone Yes [id number] 50mg Take 1 [facility] nivers 50 mg 1-05 tablet by ity of tablet 00:00: mouth at [place] 00 bedtime. Medical Branch glipiZIDE Yes [id number] 2.5mg Take 1 U nivers XL 2.5 mg 1-05 tablet by ity o f 24 hr 00:00: mouth in [place] tablet 00 the Medical morning Branch and 1 tablet in the evening. arformotero Yes [id number] 15ug Use 2 mL [facility] L 15 mcg/2 1-05 as ity of mL 00:00: directed [place] nebulizer 00 in the Medical solution morning Branch and 2 mL in the evening. ipratropium 0 Yes [id number] .5mg Inhale 2.5 [facility] 0.02 % 1-05 mL every 4 ity of nebulizer 00:00: (four) [place] solution 00 hours as Medical needed for Branch Wheezing or Shortness of Breath. albuterol 0 Yes [id number] 2{puff} Inhale 2 [facility] 90 1-05 Puffs ity of mcg/actuati 00:00: every 6 [place] as on inhaler 00 (six) Medical hours as Branch needed for Wheezing or Shortness of Breath. cloNIDine 0 Yes [id number] .2mg Take 1 [facility] nivers 0.2 mg 1-05 tablet by ity of tablet 00:00: mouth 3 [place] 00 (three) Medical times Branch daily as needed (Uncontrol led Hypertensi on). Take 1 Tab if BP > 150/90 levothyroxi 0 Yes [id number] 150ug Take 1 [facility] ne 150 mcg 1-05 tablet by ity of tablet 00:00: mouth [place] 00 every Medical morning. Branch tamsulosin Yes [id number] .4mg Take 1 [facility] 0.4 mg 24 1-05 9102 capsule by ity of hr capsule 00:00: mouth in [place] as 00 the Medical morning. Branch budesonide Yes [id number] .5mg Inhale 2 [facility] 0.5 mg/2 mL 1-05 mL in the ity of nebulizer 00:00: morning [place] solution 00 and 2 mL Medical in the Branch evening. traZODone 0 Yes [id number] 50mg Take 1 [facility] nivers 50 mg 1-05 tablet by it[facility] of tablet 00:00: mouth at [place] 00 bedtime. Medical Branch glipiZIDE 0 Yes [id number] 2.5mg Take 1 [facility] nivers XL 2.5 mg 1-05 tablet by ity o f 24 hr 00:00: mouth in [place] tablet 00 the Medical morning Branch and 1 tablet in the evening. arformotero 0 Yes [id number] 15ug Use 2 mL [facility] L 15 mcg/2 1-05 as ity of mL 00:00: directed [place] nebulizer 00 in the Medical solution morning Branch and 2 mL in the evening. ipratropium 0 Yes [id number] .5mg Inhale 2.5 [facility] 0.02 % 1-05 mL every 4 ity of nebulizer 00:00: (four) [place] solution 00 hours as Medical needed for Branch Wheezing or Shortness of Breath. albuterol 0 Yes [id number] 2{puff} Inhale 2 [facility] 90 1-05 Puffs ity of mcg/actuati 00:00: every 6 [place] as on inhaler 00 (six) Medical hours as Branch needed for Wheezing or Shortness of Breath. cloNIDine 0 Yes [id number] .2mg Take 1 [facility] nivers 0.2 mg 1-05 tablet by ity of tablet 00:00: mouth 3 [place] 00 (three) Medical times Branch daily as needed (Uncontrol led Hypertensi on). Take 1 Tab if BP > 150/90 levothyroxi 2022-0 Yes [id number] 150ug Take 1 [facility] ne 150 mcg 1-05 tablet by ity of tablet 00:00: mouth [place] 00 every Medical morning. Branch tamsulosin 0 Yes [id number] .4mg Take 1 [facility] 0.4 mg 24 1-05 9102 capsule by ity of hr capsule 00:00: mouth in [place] as 00 the Medical morning. Branch budesonide 0 Yes [id number] .5mg Inhale 2 [facility] 0.5 mg/2 mL 1-05 mL in the ity of nebulizer 00:00: morning [place] solution 00 and 2 mL Medical in the Branch evening. traZODone 2022-0 Yes [id number] 50mg Take 1 [facility] nivers 50 mg 1-05 tablet by ity of tablet 00:00: mouth at [place] 00 bedtime. Medical Branch glipiZIDE 0 Yes [id number] 2.5mg Take 1 [facility] nivers XL 2.5 mg 1-05 tablet by ity o f 24 hr 00:00: mouth in [place] tablet 00 the Medical morning Branch and 1 tablet in the evening. arformotero 2022-0 Yes [id number] 15ug Use 2 mL [facility] L 15 mcg/2 1-05 as ity of mL 00:00: directed [place] nebulizer 00 in the Medical solution morning Branch and 2 mL in the evening. ipratropium 0 Yes [id number] .5mg Inhale 2.5 [facility] 0.02 % 1-05 mL every 4 ity of nebulizer 00:00: (four) [place] solution 00 hours as Medical needed for Branch Wheezing or Shortness of Breath. albuterol 0 Yes [id number] 2{puff} Inhale 2 [facility] 90 1-05 Puffs ity of mcg/actuati 00:00: every 6 [place] as on inhaler 00 (six) Medical hours as Branch needed for Wheezing or Shortness of Breath. cloNIDine Yes [id number] .2mg Take 1 [facility] nivers 0.2 mg 1-05 tablet by ity of tablet 00:00: mouth 3 [place] 00 (three) Medical times Branch daily as needed (Uncontrol led Hypertensi on). Take 1 Tab if BP > 150/90 NIFEdipine 0 Yes 30mg Take 1 Un[facility] rs ER 30 mg 1-05 tablet by ity of tablet 00:00: mouth [place] 00 every Medical morning. Branch levothyroxi Yes [id number] 150ug Take 1 [facility] ne 150 mcg 1-05 tablet by ity of tablet 00:00: mouth [place] 00 every Medical morning. Branch tamsulosin Yes [id number] .4mg Take 1 [facility] 0.4 mg 24 1-05 9102 capsule by ity of hr capsule 00:00: mouth in [place] as 00 the Medical morning. Branch budesonide 0 Yes [id number] .5mg Inhale 2 [facility] 0.5 mg/2 mL 1-05 mL in the ity of nebulizer 00:00: morning [place] solution 00 and 2 mL Medical in the Branch evening. traZODone 0 Yes [id number] 50mg Take 1 [facility] nivers 50 mg 1-05 tablet by ity of tablet 00:00: mouth at [place] 00 bedtime. Medical Branch glipiZIDE 0 Yes [id number] 2.5mg Take 1 [facility] nivers XL 2.5 mg 1-05 tablet by ity o f 24 hr 00:00: mouth in [place] tablet 00 the Medical morning Branch and 1 tablet in the evening. arformotero 0 Yes [id number] 15ug Use 2 mL [facility] L 15 mcg/2 1-05 as ity of mL 00:00: directed [place] nebulizer 00 in the Medical solution morning Branch and 2 mL in the evening. ipratropium 0 Yes [id number] .5mg Inhale 2.5 [facility] 0.02 % 1-05 mL every 4 ity of nebulizer 00:00: (four) [place] solution 00 hours as Medical needed for Branch Wheezing or Shortness of Breath. albuterol 0 Yes [id number] 2{puff} Inhale 2 [facility] 90 1-05 Puffs ity of mcg/actuati 00:00: every 6 [place] as on inhaler 00 (six) Medical hours as Branch needed for Wheezing or Shortness of Breath. cloNIDine 0 Yes [id number] .2mg Take 1 [facility] nivers 0.2 mg [...] every Medical morning. Branch levothyroxi 0 Yes [id number] 150ug Take 1 [facility] ne 150 mcg 1-05 tablet by ity of tablet 00:00: mouth [place] 00 every Medical morning. Branch tamsulosin 0 Yes [id number] .4mg Take 1 [facility] 0.4 mg 24 1-05 9102 capsule by ity of hr capsule 00:00: mouth in [place] as 00 the Medical morning. Branch budesonide 0 Yes [id number] .5mg Inhale 2 [facility] 0.5 mg/2 mL 1-05 mL in the ity of nebulizer 00:00: morning [place] solution 00 and 2 mL Medical in the Branch evening. traZODone 2022-0 Yes [id number] 50mg Take 1 [facility] nivers 50 mg 1-05 tablet by ity of tablet 00:00: mouth at [place] 00 bedtime. Medical Branch glipiZIDE 0 Yes [id number] 2.5mg Take 1 [facility] nivers XL 2.5 mg 1-05 tablet by ity o f 24 hr 00:00: mouth in [place] tablet 00 the Medical morning Branch and 1 tablet in the evening. arformotero 2023-0 Yes [id number] 15ug Use 2 mL [facility] L 15 mcg/2 1-05 as ity of mL 00:00: directed [place] nebulizer 00 in the Medical solution morning Branch and 2 mL in the evening. ipratropium 0 Yes [id number] .5mg Inhale 2.5 [facility] 0.02 % 1-05 mL every 4 ity of nebulizer 00:00: (four) [place] solution 00 hours as Medical needed for Branch Wheezing or Shortness of Breath. albuterol Yes [id number] 2{puff} Inhale 2 [facility] 90 1-05 Puffs ity of mcg/actuati 00:00: every 6 [place] as on inhaler 00 (six) Medical hours as Branch needed for Wheezing or Shortness of Breath. cloNIDine Yes [id number] .2mg Take 1 [facility] nivers 0.2 mg 1-05 tablet by ity of tablet 00:00: mouth 3 [place] 00 (three) Medical times Branch daily as needed (Uncontrol led Hypertensi on). Take 1 Tab if BP > 150/90 NIFEdipine Yes 30mg Take 1 [facility] rs ER 30 mg 1-05 tablet by ity of tablet 00:00: mouth [place] 00 every Medical morning. Branch levothyroxi Yes [id number] 150ug Take 1 [facility] ne 150 mcg 1-05 tablet by ity of tablet 00:00: mouth [place] 00 every Medical morning. Branch tamsulosin Yes [id number] .4mg Take 1 [facility] 0.4 mg 24 1-05 9102 capsule by ity of hr capsule 00:00: mouth in [place] as 00 the Medical morning. Branch budesonide 0 Yes [id number] .5mg Inhale 2 [facility] 0.5 mg/2 mL 1-05 mL in the ity of nebulizer 00:00: morning [place] solution 00 and 2 mL Medical in the Branch evening. traZODone 0 Yes [id number] 50mg Take 1 [facility] nivers 50 mg 1-05 tablet by ity of tablet 00:00: mouth at [place] 00 bedtime. Medical Branch glipiZIDE 0 Yes [id number] 2.5mg Take 1 [facility] nivers XL 2.5 mg 1-05 tablet by ity o f 24 hr 00:00: mouth in [place] tablet 00 the Medical morning Branch and 1 tablet in the evening. arformotero 0 Yes [id number] 15ug Use 2 mL [facility] L 15 mcg/2 1-05 as ity of mL 00:00: directed [place] nebulizer 00 in the Medical solution morning Branch and 2 mL in the evening. ipratropium 0 Yes [id number] .5mg Inhale 2.5 [facility] 0.02 % 1-05 mL every 4 ity of nebulizer 00:00: (four) [place] solution 00 hours as Medical needed for Branch Wheezing or Shortness of Breath. albuterol Yes [id number] 2{puff} Inhale 2 [facility] 90 1-05 Puffs ity of mcg/actuati 00:00: every 6 [place] as on inhaler 00 (six) Medical hours as Branch needed for Wheezing or Shortness of Breath. cloNIDine 0 Yes [id number] .2mg Take 1 [facility] nivers 0.2 mg 1-05 tablet by ity of tablet 00:00: mouth 3 [place] 00 (three) Medical times Branch daily as needed (Uncontrol led Hypertensi on). Take 1 Tab if BP > 150/90 NIFEdipine 0 Yes 30mg Take 1 [facility] rs ER 30 mg 1-05 tablet by ity of tablet 00:00: mouth [place] 00 every Medical morning. Branch levothyroxi 0 Yes [id number] 150ug Take 1 [facility] ne 150 mcg 1-05 tablet by ity of tablet 00:00: mouth [place] 00 every Medical morning. Branch tamsulosin 0 Yes [id number] .4mg Take 1 [facility] 0.4 mg 24 1-05 9102 capsule by ity of hr capsule 00:00: mouth in [place] as 00 the Medical morning. Branch budesonide 2022-0 Yes [id number] .5mg Inhale 2 [facility] 0.5 mg/2 mL 1-05 mL in the ity of nebulizer 00:00: morning [place] solution 00 and 2 mL Medical in the Branch evening. traZODone 2022-0 Yes [id number] 50mg Take 1 [facility] nivers 50 mg 1-05 tablet by ity of tablet 00:00: mouth at [place] 00 bedtime. Medical Branch glipiZIDE 2022-0 Yes [id number] 2.5mg Take 1 [facility] nivers XL 2.5 mg 1-05 tablet by ity o f 24 hr 00:00: mouth in [place] tablet 00 the Medical morning Branch and 1 tablet in the evening. arformotero Yes [id number] 15ug Use 2 mL [facility] L 15 mcg/2 1-05 as ity of mL 00:00: directed [place] nebulizer 00 in the Medical solution morning Branch and 2 mL in the evening. ipratropium 0 Yes [id number] .5mg Inhale 2.5 [facility] 0.02 % 1-05 mL every 4 ity of nebulizer 00:00: (four) [place] solution 00 hours as Medical needed for Branch Wheezing or Shortness of Breath. albuterol 0 Yes [id number] 2{puff} Inhale 2 [facility] 90 1-05 Puffs ity of mcg/actuati 00:00: every 6 [place] as on inhaler 00 (six) Medical hours as Branch needed for Wheezing or Shortness of Breath. cloNIDine Yes [id number] .2mg Take 1 [facility] nivers 0.2 mg 1-05 tablet by ity of tablet 00:00: mouth 3 [place] 00 (three) Medical times Branch daily as needed (Uncontrol led Hypertensi on). Take 1 Tab if BP > 150/90 NIFEdipine Yes 30mg Take 1 [facility] rs ER 30 mg 1-05 tablet by ity of tablet 00:00: mouth [place] 00 every Medical morning. Branch levothyroxi Yes [id number] 150ug Take 1 [facility] ne 150 mcg 1-05 tablet by ity of tablet 00:00: mouth [place] 00 every Medical morning. Branch tamsulosin 0 Yes [id number] .4mg Take 1 [facility] 0.4 mg 24 1-05 9102 capsule by ity of hr capsule 00:00: mouth in [place] as 00 the Medical morning. Branch budesonide 0 Yes [id number] .5mg Inhale 2 [facility] 0.5 mg/2 mL 1-05 mL in the ity of nebulizer 00:00: morning [place] solution 00 and 2 mL Medical in the Branch evening. traZODone 0 Yes [id number] 50mg Take 1 [facility] nivers 50 mg 1-05 tablet by ity of tablet 00:00: mouth at [place] 00 bedtime. Medical Branch glipiZIDE 0 Yes [id number] 2.5mg Take 1 [facility] nivers XL 2.5 mg 1-05 tablet by ity o f 24 hr 00:00: mouth in [place] tablet 00 the Medical morning Branch and 1 tablet in the evening. arformotero 2022-0 Yes [id number] 15ug Use 2 mL [facility] L 15 mcg/2 1-05 as ity of mL 00:00: directed [place] nebulizer 00 in the Medical solution morning Branch and 2 mL in the evening. ipratropium 0 Yes [id number] .5mg Inhale 2.5 [facility] 0.02 % 1-05 mL every 4 ity of nebulizer 00:00: (four) [place] solution 00 hours as Medical needed for Branch Wheezing or Shortness of Breath. albuterol 0 Yes [id number] 2{puff} Inhale 2 [facility] 90 1-05 Puffs ity of mcg/actuati 00:00: every 6 [place] as on inhaler 00 (six) Medical hours as Branch needed for Wheezing or Shortness of Breath. cloNIDine Yes [id number] .2mg Take 1 [facility] nivers 0.2 mg 1-05 tablet by ity of tablet 00:00: mouth 3 [place] 00 (three) Medical times Branch daily as needed (Uncontrol led Hypertensi on). Take 1 Tab if BP > 150/90 NIFEdipine 0 Yes 30mg Take 1 Un[facility] rs ER 30 mg 1-05 tablet by ity of tablet 00:00: mouth [place] 00 every Medical morning. Branch levothyroxi 0 Yes [id number] 150ug Take 1 [facility] ne 150 mcg 1-05 tablet by ity of tablet 00:00: mouth [place] 00 every Medical morning. Branch tamsulosin 0 Yes [id number] .4mg Take 1 [facility] 0.4 mg 24 1-05 9102 capsule by ity of hr capsule 00:00: mouth in [place] as 00 the Medical morning. Branch budesonide 0 Yes [id number] .5mg Inhale 2 [facility] 0.5 mg/2 mL 1-05 mL in the ity of nebulizer 00:00: morning [place] solution 00 and 2 mL Medical in the Branch evening. traZODone 2023-0 Yes [id number] 50mg Take 1 [facility] nivers 50 mg 1-05 tablet by ity of tablet 00:00: mouth at [place] 00 bedtime. Medical Branch glipiZIDE Yes [id number] 2.5mg Take 1 [facility] nivers XL 2.5 mg 1-05 tablet by ity o f 24 hr 00:00: mouth in [place] tablet 00 the Medical morning Branch and 1 tablet in the evening. arformotero Yes [id number] 15ug Use 2 mL [facility] L 15 mcg/2 1-05 as ity of mL 00:00: directed [place] nebulizer 00 in the Medical solution morning Branch and 2 mL in the evening. ipratropium Yes [id number] .5mg Inhale 2.5 [facility] 0.02 % 1-05 mL every 4 ity of nebulizer 00:00: (four) [place] solution 00 hours as Medical needed for Branch Wheezing or Shortness of Breath. albuterol Yes [id number] 2{puff} Inhale 2 [facility] 90 1-05 Puffs ity of mcg/actuati 00:00: every 6 [place] as on inhaler 00 (six) Medical hours as Branch needed for Wheezing or Shortness of Breath. cloNIDine Yes [id number] .2mg Take 1 [facility] nivers 0.2 mg 1-05 tablet by ity of tablet 00:00: mouth 3 [place] 00 (three) Medical times Branch daily as needed (Uncontrol led Hypertensi on). Take 1 Tab if BP > 150/90 NIFEdipine Yes 30mg Take 1 [facility] rs ER 30 mg 1-05 tablet by ity of tablet 00:00: mouth [place] 00 every Medical morning. Branch levothyroxi Yes [id number] 150ug Take 1 [facility] ne 150 mcg 1-05 tablet by ity of tablet 00:00: mouth [place] 00 every Medical morning. Branch tamsulosin Yes [id number] .4mg Take 1 [facility] 0.4 mg 24 1-05 9102 capsule by ity of hr capsule 00:00: mouth in [place] as 00 the Medical morning. Branch budesonide Yes [id number] .5mg Inhale 2 [facility] 0.5 mg/2 mL 1-05 mL in the ity of nebulizer 00:00: morning [place] solution 00 and 2 mL Medical in the Branch evening. traZODone Yes [id number] 50mg Take 1 [facility] nivers 50 mg 1-05 tablet by ity of tablet 00:00: mouth at [place] 00 bedtime. Medical Branch glipiZIDE Yes [id number] 2.5mg Take 1 [facility] nivers XL 2.5 mg 1-05 tablet by ity o f 24 hr 00:00: mouth in [place] tablet 00 the Medical morning Branch and 1 tablet in the evening. arformotero Yes [id number] 15ug Use 2 mL [facility] L 15 mcg/2 1-05 as ity of mL 00:00: directed [place] nebulizer 00 in the Medical solution morning Branch and 2 mL in the evening. ipratropium Yes [id number] .5mg Inhale 2.5 [facility] 0.02 % 1-05 mL every 4 ity of nebulizer 00:00: (four) [place] solution 00 hours as Medical needed for Branch Wheezing or Shortness of Breath. albuterol Yes [id number] 2{puff} Inhale 2 [facility] 90 1-05 Puffs ity of mcg/actuati 00:00: every 6 [place] as on inhaler 00 (six) Medical hours as Branch needed for Wheezing or Shortness of Breath. cloNIDine Yes [id number] .2mg Take 1 [facility] nivers 0.2 mg 1-05 tablet by ity of tablet 00:00: mouth 3 [place] 00 (three) Medical times Branch daily as needed (Uncontrol led Hypertensi on). Take 1 Tab if BP > 150/90 NIFEdipine Yes 30mg Take 1 [facility] rs ER 30 mg 1-05 tablet by ity of tablet 00:00: mouth [place] 00 every Medical morning. Branch levothyroxi Yes [id number] 150ug Take 1 [facility] ne 150 mcg 1-05 tablet by ity of tablet 00:00: mouth [place] 00 every Medical morning. Branch tamsulosin Yes [id number] .4mg Take 1 [facility] 0.4 mg 24 1-05 9102 capsule by ity of hr capsule 00:00: mouth in [place] as 00 the Medical morning. Branch budesonide 2023-0 Yes [id number] .5mg Inhale 2 [facility] 0.5 mg/2 mL 1-05 mL in the ity of nebulizer 00:00: morning [place] solution 00 and 2 mL Medical in the Branch evening. traZODone Yes [id number] 50mg Take 1 U nivers 50 mg 1-05 tablet by ity of tablet 00:00: mouth at [place] 00 bedtime. Medical Branch glipiZIDE Yes [id number] 2.5mg Take 1 [facility] nivers XL 2.5 mg 1-05 tablet by ity o f 24 hr 00:00: mouth in [place] tablet 00 the Medical morning Branch and 1 tablet in the evening. arformotero Yes [id number] 15ug Use 2 mL [facility] L 15 mcg/2 1-05 as ity of mL 00:00: directed [place] nebulizer 00 in the Medical solution morning Branch and 2 mL in the evening. ipratropium Yes [id number] .5mg Inhale 2.5 [facility] 0.02 % 1-05 mL every 4 ity of nebulizer 00:00: (four) [place] solution 00 hours as Medical needed for Branch Wheezing or Shortness of Breath. albuterol Yes [id number] 2{puff} Inhale 2 [facility] 90 1-05 Puffs ity of mcg/actuati 00:00: every 6 [place] as on inhaler 00 (six) Medical hours as Branch needed for Wheezing or Shortness of Breath. cloNIDine Yes [id number] .2mg Take 1 [facility] nivers 0.2 mg 1-05 tablet by ity of tablet 00:00: mouth 3 [place] 00 (three) Medical times Branch daily as needed (Uncontrol led Hypertensi on). Take 1 Tab if BP > 150/90 NIFEdipine 0 Yes 30mg Take 1 Un[facility] rs ER 30 mg 1-05 tablet by ity of tablet 00:00: mouth [place] 00 every Medical morning. Branch levothyroxi Yes [id number] 150ug Take 1 [facility] ne 150 mcg 1-05 tablet by ity of tablet 00:00: mouth [place] 00 every Medical morning. Branch tamsulosin Yes [id number] .4mg Take 1 [facility] 0.4 mg 24 1-05 9102 capsule by ity of hr capsule 00:00: mouth in [place] as 00 the Medical morning. Branch budesonide Yes [id number] .5mg Inhale 2 [facility] 0.5 mg/2 mL 1-05 mL in the ity of nebulizer 00:00: morning [place] solution 00 and 2 mL Medical in the Branch evening. traZODone Yes [id number] 50mg Take 1 U nivers 50 mg 1-05 tablet by ity of tablet 00:00: mouth at [place] 00 bedtime. Medical Branch glipiZIDE Yes [id number] 2.5mg Take 1 [facility] nivers XL 2.5 mg 1-05 tablet by ity o f 24 hr 00:00: mouth in [place] tablet 00 the Medical morning Branch and 1 tablet in the evening. arformotero Yes [id number] 15ug Use 2 mL [facility] L 15 mcg/2 1-05 as ity of mL 00:00: directed [place] nebulizer 00 in the Medical solution morning Branch and 2 mL in the evening. ipratropium Yes [id number] .5mg Inhale 2.5 [facility] 0.02 % 1-05 mL every 4 ity of nebulizer 00:00: (four) [place] solution 00 hours as Medical needed for Branch Wheezing or Shortness of Breath. albuterol Yes [id number] 2{puff} Inhale 2 [facility] 90 1-05 Puffs ity of mcg/actuati 00:00: every 6 [place] as on inhaler 00 (six) Medical hours as Branch needed for Wheezing or Shortness of Breath. cloNIDine Yes [id number] .2mg Take 1 [facility] nivers 0.2 mg 1-05 tablet by ity of tablet 00:00: mouth 3 [place] 00 (three) Medical times Branch daily as needed (Uncontrol led Hypertensi on). Take 1 Tab if BP > 150/90 NIFEdipine Yes 30mg Take 1 Un[facility] rs ER 30 mg 1-05 tablet by ity of tablet 00:00: mouth [place] 00 every Medical morning. Branch levothyroxi Yes [id number] 150ug Take 1 [facility] ne 150 mcg 1-05 tablet by ity of tablet 00:00: mouth [place] 00 every Medical morning. Branch tamsulosin Yes [id number] .4mg Take 1 [facility] 0.4 mg 24 1-05 9102 capsule by ity of hr capsule 00:00: mouth in [place] as 00 the Medical morning. Branch budesonide Yes [id number] .5mg Inhale 2 [facility] 0.5 mg/2 mL 1-05 mL in the ity of nebulizer 00:00: morning [place] solution 00 and 2 mL Medical in the Branch evening. traZODone Yes [id number] 50mg Take 1 U nivers 50 mg 1-05 tablet by ity of tablet 00:00: mouth at [place] 00 bedtime. Medical Branch glipiZIDE Yes [id number] 2.5mg Take 1 U nivers XL 2.5 mg 1-05 tablet by ity o f 24 hr 00:00: mouth in [place] tablet 00 the Medical morning Branch and 1 tablet in the evening. arformotero Yes [id number] 15ug Use 2 mL [facility] L 15 mcg/2 1-05 as ity of mL 00:00: directed [place] nebulizer 00 in the Medical solution morning Branch and 2 mL in the evening. ipratropium Yes [id number] .5mg Inhale 2.5 [facility] 0.02 % 1-05 mL every 4 ity of nebulizer 00:00: (four) [place] solution 00 hours as Medical needed for Branch Wheezing or Shortness of Breath. albuterol Yes [id number] 2{puff} Inhale 2 [facility] 90 1-05 Puffs ity of mcg/actuati 00:00: every 6 [place] as on inhaler 00 (six) Medical hours as Branch needed for Wheezing or Shortness of Breath. cloNIDine Yes [id number] .2mg Take 1 [facility] nivers 0.2 mg 1-05 tablet by ity of tablet 00:00: mouth 3 [place] 00 (three) Medical times Branch daily as needed (Uncontrol led Hypertensi on). Take 1 Tab if BP > 150/90 levothyroxi Yes [id number] 150ug Take 1 [facility] ne 150 mcg 1-05 tablet by ity of tablet 00:00: mouth [place] 00 every Medical morning. Branch tamsulosin Yes [id number] .4mg Take 1 [facility] 0.4 mg 24 1-05 9102 capsule by ity of hr capsule 00:00: mouth in [place] as 00 the Medical morning. Branch budesonide Yes [id number] .5mg Inhale 2 [facility] 0.5 mg/2 mL 1-05 mL in the ity of nebulizer 00:00: morning [place] solution 00 and 2 mL Medical in the Branch evening. traZODone Yes [id number] 50mg Take 1 U nivers 50 mg 1-05 tablet by ity of tablet 00:00: mouth at [place] 00 bedtime. Medical Branch glipiZIDE Yes [id number] 2.5mg Take 1 [facility] nivers XL 2.5 mg 1-05 tablet by ity o f 24 hr 00:00: mouth in [place] tablet 00 the Medical morning Branch and 1 tablet in the evening. arformotero Yes [id number] 15ug Use 2 mL [facility] L 15 mcg/2 1-05 as ity of mL 00:00: directed [place] nebulizer 00 in the Medical solution morning Branch and 2 mL in the evening. ipratropium Yes [id number] .5mg Inhale 2.5 [facility] 0.02 % 1-05 mL every 4 ity of nebulizer 00:00: (four) [place] solution 00 hours as Medical needed for Branch Wheezing or Shortness of Breath. albuterol Yes [id number] 2{puff} Inhale 2 [facility] 90 1-05 Puffs ity of mcg/actuati 00:00: every 6 [place] as on inhaler 00 (six) Medical hours as Branch needed for Wheezing or Shortness of Breath. cloNIDine Yes [id number] .2mg Take 1 [facility] nivers 0.2 mg 1-05 tablet by ity of tablet 00:00: mouth 3 [place] 00 (three) Medical times Branch daily as needed (Uncontrol led Hypertensi on). Take 1 Tab if BP > 150/90 NIFEdipine Yes 30mg Take 1 Un[facility] rs ER 30 mg 1-05 tablet by ity of tablet 00:00: mouth [place] 00 every Medical morning. Branch levothyroxi Yes [id number] 150ug Take 1 [facility] ne 150 mcg 1-05 tablet by ity of tablet 00:00: mouth [place] 00 every Medical morning. Branch tamsulosin 0 Yes [id number] .4mg Take 1 [facility] 0.4 mg 24 1-05 9102 capsule by ity of hr capsule 00:00: mouth in [place] as 00 the Medical morning. Branch budesonide Yes [id number] .5mg Inhale 2 [facility] 0.5 mg/2 mL 1-05 mL in the ity of nebulizer 00:00: morning [place] solution 00 and 2 mL Medical in the Branch evening. traZODone Yes [id number] 50mg Take 1 [facility] nivers 50 mg 1-05 tablet by ity of tablet 00:00: mouth at [place] 00 bedtime. Medical Branch glipiZIDE Yes [id number] 2.5mg Take 1 U nivers XL 2.5 mg 1-05 tablet by ity o f 24 hr 00:00: mouth in [place] tablet 00 the Medical morning Branch and 1 tablet in the evening. arformotero Yes [id number] 15ug Use 2 mL [facility] L 15 mcg/2 1-05 as ity of mL 00:00: directed [place] nebulizer 00 in the Medical solution morning Branch and 2 mL in the evening. ipratropium Yes [id number] .5mg Inhale 2.5 [facility] 0.02 % 1-05 mL every 4 ity of nebulizer 00:00: (four) [place] solution 00 hours as Medical needed for Branch Wheezing or Shortness of Breath. albuterol Yes [id number] 2{puff} Inhale 2 [facility] 90 1-05 Puffs ity of mcg/actuati 00:00: every 6 [place] as on inhaler 00 (six) Medical hours as Branch needed for Wheezing or Shortness of Breath. cloNIDine Yes [id number] .2mg Take 1 U nivers 0.2 mg 1-05 tablet by ity of tablet 00:00: mouth 3 [place] 00 (three) Medical times Branch daily as needed (Uncontrol led Hypertensi on). Take 1 Tab if BP > 150/90 NIFEdipine 0 Yes 30mg Take 1 [facility] rs ER 30 mg 1-05 tablet by ity of tablet 00:00: mouth [place] 00 every Medical morning. Branch levothyroxi Yes [id number] 150ug Take 1 [facility] ne 150 mcg 1-05 tablet by ity of tablet 00:00: mouth [place] 00 every Medical morning. Branch tamsulosin 0 Yes [id number] .4mg Take 1 [facility] 0.4 mg 24 1-05 9102 capsule by ity of hr capsule 00:00: mouth in [place] as 00 the Medical morning. Branch budesonide 0 Yes [id number] .5mg Inhale 2 [facility] 0.5 mg/2 mL 1-05 mL in the ity of nebulizer 00:00: morning [place] solution 00 and 2 mL Medical in the Branch evening. traZODone 0 Yes [id number] 50mg Take 1 [facility] nivers 50 mg 1-05 tablet by ity of tablet 00:00: mouth at [place] 00 bedtime. Medical Branch glipiZIDE Yes [id number] 2.5mg Take 1 [facility] nivers XL 2.5 mg 1-05 tablet by ity o f 24 hr 00:00: mouth in [place] tablet 00 the Medical morning Branch and 1 tablet in the evening. arformotero Yes [id number] 15ug Use 2 mL [facility] L 15 mcg/2 1-05 as ity of mL 00:00: directed [place] nebulizer 00 in the Medical solution morning Branch and 2 mL in the evening. ipratropium 0 Yes [id number] .5mg Inhale 2.5 [facility] 0.02 % 1-05 mL every 4 ity of nebulizer 00:00: (four) [place] solution 00 hours as Medical needed for Branch Wheezing or Shortness of Breath. albuterol 0 Yes [id number] 2{puff} Inhale 2 [facility] 90 1-05 Puffs ity of mcg/actuati 00:00: every 6 [place] as on inhaler 00 (six) Medical hours as Branch needed for Wheezing or Shortness of Breath. cloNIDine 0 Yes [id number] .2mg Take 1 [facility] nivers 0.2 mg [...] every Medical morning. Branch levothyroxi 0 Yes [id number] 150ug Take 1 [facility] ne 150 mcg 1-05 tablet by ity of tablet 00:00: mouth [place] 00 every Medical morning. Branch tamsulosin 0 Yes [id number] .4mg Take 1 [facility] 0.4 mg 24 1-05 9102 capsule by ity of hr capsule 00:00: mouth in [place] as 00 the Medical morning. Branch budesonide Yes [id number] .5mg Inhale 2 [facility] 0.5 mg/2 mL 1-05 mL in the ity of nebulizer 00:00: morning [place] solution 00 and 2 mL Medical in the Branch evening. traZODone Yes [id number] 50mg Take 1 [facility] nivers 50 mg 1-05 tablet by ity of tablet 00:00: mouth at [place] 00 bedtime. Medical Branch glipiZIDE Yes [id number] 2.5mg Take 1 [facility] nivers XL 2.5 mg 1-05 tablet by ity o f 24 hr 00:00: mouth in [place] tablet 00 the Medical morning Branch and 1 tablet in the evening. arformotero Yes [id number] 15ug Use 2 mL [facility] L 15 mcg/2 1-05 as ity of mL 00:00: directed [place] nebulizer 00 in the Medical solution morning Branch and 2 mL in the evening. ipratropium 0 Yes [id number] .5mg Inhale 2.5 [facility] 0.02 % 1-05 mL every 4 ity of nebulizer 00:00: (four) [place] solution 00 hours as Medical needed for Branch Wheezing or Shortness of Breath. albuterol 0 Yes [id number] 2{puff} Inhale 2 [facility] 90 1-05 Puffs ity of mcg/actuati 00:00: every 6 [place] as on inhaler 00 (six) Medical hours as Branch needed for Wheezing or Shortness of Breath. cloNIDine 0 Yes [id number] .2mg Take 1 [facility] nivers 0.2 mg [...] every Medical morning. Branch levothyroxi 0 Yes [id number] 150ug Take 1 [facility] ne 150 mcg 1-05 tablet by ity of tablet 00:00: mouth [place] 00 every Medical morning. Branch tamsulosin 0 Yes [id number] .4mg Take 1 [facility] 0.4 mg 24 1-05 9102 capsule by ity of hr capsule 00:00: mouth in [place] as 00 the Medical morning. Branch budesonide 0 Yes [id number] .5mg Inhale 2 [facility] 0.5 mg/2 mL 1-05 mL in the ity of nebulizer 00:00: morning [place] solution 00 and 2 mL Medical in the Branch evening. traZODone 0 Yes [id number] 50mg Take 1 [facility] nivers 50 mg 1-05 tablet by ity of tablet 00:00: mouth at [place] 00 bedtime. Medical Branch glipiZIDE 0 Yes [id number] 2.5mg Take 1 [facility] nivers XL 2.5 mg 1-05 tablet by ity o f 24 hr 00:00: mouth in [place] tablet 00 the Medical morning Branch and 1 tablet in the evening. arformotero 0 Yes [id number] 15ug Use 2 mL [facility] L 15 mcg/2 1-05 as ity of mL 00:00: directed [place] nebulizer 00 in the Medical solution morning Branch and 2 mL in the evening. ipratropium 2022-0 Yes [id number] .5mg Inhale 2.5 [facility] 0.02 % 1-05 mL every 4 ity of nebulizer 00:00: (four) [place] solution 00 hours as Medical needed for Branch Wheezing or Shortness of Breath. albuterol 2022-0 Yes [id number] 2{puff} Inhale 2 [facility] 90 1-05 Puffs ity of mcg/actuati 00:00: every 6 [place] as on inhaler 00 (six) Medical hours as Branch needed for Wheezing or Shortness of Breath. cloNIDine 2022-0 Yes [id number] .2mg Take 1 [facility] nivers 0.2 mg [...] every Medical morning. Branch levothyroxi 0 Yes [id number] 150ug Take 1 [facility] ne 150 mcg 1-05 tablet by ity of tablet 00:00: mouth [place] 00 every Medical morning. Branch tamsulosin Yes [id number] .4mg Take 1 [facility] 0.4 mg 24 1-05 9102 capsule by ity of hr capsule 00:00: mouth in [place] as 00 the Medical morning. Branch budesonide Yes [id number] .5mg Inhale 2 [facility] 0.5 mg/2 mL 1-05 mL in the ity of nebulizer 00:00: morning [place] solution 00 and 2 mL Medical in the Branch evening. traZODone Yes [id number] 50mg Take 1 [facility] nivers 50 mg 1-05 tablet by ity of tablet 00:00: mouth at [place] 00 bedtime. Medical Branch glipiZIDE Yes [id number] 2.5mg Take 1 [facility] nivers XL 2.5 mg 1-05 tablet by ity o f 24 hr 00:00: mouth in [place] tablet 00 the Medical morning Branch and 1 tablet in the evening. arformotero 0 Yes [id number] 15ug Use 2 mL [facility] L 15 mcg/2 1-05 as ity of mL 00:00: directed [place] nebulizer 00 in the Medical solution morning Branch and 2 mL in the evening. ipratropium 0 Yes [id number] .5mg Inhale 2.5 [facility] 0.02 % 1-05 mL every 4 ity of nebulizer 00:00: (four) [place] solution 00 hours as Medical needed for Branch Wheezing or Shortness of Breath. albuterol 0 Yes [id number] 2{puff} Inhale 2 [facility] 90 1-05 Puffs ity of mcg/actuati 00:00: every 6 [place] as on inhaler 00 (six) Medical hours as Branch needed for Wheezing or Shortness of Breath. cloNIDine 0 Yes [id number] .2mg Take 1 [facility] nivers 0.2 mg 1-05 tablet by ity of tablet 00:00: mouth 3 [place] 00 (three) Medical times Branch daily as needed (Uncontrol led Hypertensi on). Take 1 Tab if BP > 150/90 NIFEdipine 0 Yes 30mg Take 1 [facility] rs ER 30 mg 1-05 tablet by ity of tablet 00:00: mouth [place] 00 every Medical morning. Branch levothyroxi Yes [id number] 150ug Take 1 [facility] ne 150 mcg 1-05 tablet by ity of tablet 00:00: mouth [place] 00 every Medical morning. Branch tamsulosin Yes [id number] .4mg Take 1 [facility] 0.4 mg 24 1-05 9102 capsule by ity of hr capsule 00:00: mouth in [place] as 00 the Medical morning. Branch budesonide Yes [id number] .5mg Inhale 2 [facility] 0.5 mg/2 mL 1-05 mL in the ity of nebulizer 00:00: morning [place] solution 00 and 2 mL Medical in the Branch evening. traZODone Yes [id number] 50mg Take 1 [facility] nivers 50 mg 1-05 tablet by ity of tablet 00:00: mouth at [place] 00 bedtime. Medical Branch glipiZIDE Yes [id number] 2.5mg Take 1 [facility] nivers XL 2.5 mg 1-05 tablet by ity o f 24 hr 00:00: mouth in [place] tablet 00 the Medical morning Branch and 1 tablet in the evening. arformotero Yes [id number] 15ug Use 2 mL [facility] L 15 mcg/2 1-05 as ity of mL 00:00: directed [place] nebulizer 00 in the Medical solution morning Branch and 2 mL in the evening. ipratropium 0 Yes [id number] .5mg Inhale 2.5 [facility] 0.02 % 1-05 mL every 4 ity of nebulizer 00:00: (four) [place] solution 00 hours as Medical needed for Branch Wheezing or Shortness of Breath. albuterol 0 Yes [id number] 2{puff} Inhale 2 [facility] 90 1-05 Puffs ity of mcg/actuati 00:00: every 6 [place] as on inhaler 00 (six) Medical hours as Branch needed for Wheezing or Shortness of Breath. cloNIDine 2022-0 Yes [id number] .2mg Take 1 [facility] nivers 0.2 mg [...] every Medical morning. Branch levothyroxi 2022-0 Yes [id number] 150ug Take 1 [facility] ne 150 mcg 1-05 tablet by ity of tablet 00:00: mouth [place] 00 every Medical morning. Branch tamsulosin 0 Yes [id number] .4mg Take 1 [facility] 0.4 mg 24 1-05 9102 capsule by ity of hr capsule 00:00: mouth in [place] as 00 the Medical morning. Branch budesonide 0 Yes [id number] .5mg Inhale 2 [facility] 0.5 mg/2 mL 1-05 mL in the ity of nebulizer 00:00: morning [place] solution 00 and 2 mL Medical in the Branch evening. traZODone 2022-0 Yes [id number] 50mg Take 1 [facility] nivers 50 mg 1-05 tablet by ity of tablet 00:00: mouth at [place] 00 bedtime. Medical Branch glipiZIDE 2022-0 Yes [id number] 2.5mg Take 1 [facility] nivers XL 2.5 mg 1-05 tablet by ity o f 24 hr 00:00: mouth in [place] tablet 00 the Medical morning Branch and 1 tablet in the evening. arformotero 2022-0 Yes [id number] 15ug Use 2 mL [facility] L 15 mcg/2 1-05 as ity of mL 00:00: directed [place] nebulizer 00 in the Medical solution morning Branch and 2 mL in the evening. ipratropium 2022-0 Yes [id number] .5mg Inhale 2.5 [facility] 0.02 % 1-05 mL every 4 ity of nebulizer 00:00: (four) [place] solution 00 hours as Medical needed for Branch Wheezing or Shortness of Breath. cloNIDine 2022-0 Yes [id number] .2mg Take 1 [facility] nivers 0.2 mg 1-05 tablet by ity of tablet 00:00: mouth 3 [place] 00 (three) Medical times Branch daily as needed (Uncontrol led Hypertensi on). Take 1 Tab if BP > 150/90 NIFEdipine 2022-0 Yes 30mg Take 1 [facility] rs ER 30 mg 1-05 tablet by ity of tablet 00:00: mouth [place] 00 every Medical morning. Branch levothyroxi 2022-0 Yes [id number] 150ug Take 1 [facility] ne 150 mcg 1-05 tablet by ity of tablet 00:00: mouth [place] 00 every Medical morning. Branch tamsulosin 2022-0 Yes [id number] .4mg Take 1 [facility] 0.4 mg 24 1-05 9102 capsule by ity of hr capsule 00:00: mouth in [place] as 00 the Medical morning. Branch budesonide 2022-0 Yes [id number] .5mg Inhale 2 [facility] 0.5 mg/2 mL 1-05 mL in the ity of nebulizer 00:00: morning [place] solution 00 and 2 mL Medical in the Branch evening. traZODone 2022-0 Yes [id number] 50mg Take 1 [facility] nivers 50 mg 1-05 tablet by ity of tablet 00:00: mouth at [place] 00 bedtime. Medical Branch glipiZIDE 2022-0 Yes [id number] 2.5mg Take 1 [facility] nivers XL 2.5 mg 1-05 tablet by ity o f 24 hr 00:00: mouth in [place] tablet 00 the Medical morning Branch and 1 tablet in the evening. arformotero 2022-0 Yes [id number] 15ug Use 2 mL [facility] L 15 mcg/2 1-05 as ity of mL 00:00: directed [place] nebulizer 00 in the Medical solution morning Branch and 2 mL in the evening. ipratropium 2022-0 Yes [id number] .5mg Inhale 2.5 [facility] 0.02 % 1-05 mL every 4 ity of nebulizer 00:00: (four) [place] solution 00 hours as Medical needed for Branch Wheezing or Shortness of Breath. cloNIDine 2022-0 Yes [id number] .2mg Take 1 [facility] nivers 0.2 mg 1-05 tablet by ity of tablet 00:00: mouth 3 [place] 00 (three) Medical times Branch daily as needed (Uncontrol led Hypertensi on). Take 1 Tab if BP > 150/90 NIFEdipine 2022-0 Yes 30mg Take 1 [facility] rs ER 30 mg 1-05 tablet by ity of tablet 00:00: mouth [place] 00 every Medical morning. Branch levothyroxi 2022-0 Yes [id number] 150ug Take 1 [facility] ne 150 mcg 1-05 tablet by ity of tablet 00:00: mouth [place] 00 every Medical morning. Branch tamsulosin 0 Yes [id number] .4mg Take 1 [facility] 0.4 mg 24 1-05 9102 capsule by ity of hr capsule 00:00: mouth in [place] as 00 the Medical morning. Branch budesonide 0 Yes [id number] .5mg Inhale 2 [facility] 0.5 mg/2 mL 1-05 mL in the ity of nebulizer 00:00: morning [place] solution 00 and 2 mL Medical in the Branch evening. traZODone 0 Yes [id number] 50mg Take 1 [facility] nivers 50 mg 1-05 tablet by ity of tablet 00:00: mouth at [place] 00 bedtime. Medical Branch glipiZIDE 2022-0 Yes [id number] 2.5mg Take 1 [facility] nivers XL 2.5 mg 1-05 tablet by ity o f 24 hr 00:00: mouth in [place] tablet 00 the Medical morning Branch and 1 tablet in the evening. arformotero 0 Yes [id number] 15ug Use 2 mL [facility] L 15 mcg/2 1-05 as ity of mL 00:00: directed [place] nebulizer 00 in the Medical solution morning Branch and 2 mL in the evening. ipratropium 2022-0 Yes [id number] .5mg Inhale 2.5 [facility] 0.02 % 1-05 mL every 4 ity of nebulizer 00:00: (four) [place] solution 00 hours as Medical needed for Branch Wheezing or Shortness of Breath. cloNIDine 2022-0 Yes [id number] .2mg Take 1 [facility] nivers 0.2 mg 1-05 tablet by ity of tablet 00:00: mouth 3 [place] 00 (three) Medical times Branch daily as needed (Uncontrol led Hypertensi on). Take 1 Tab if BP > 150/90 NIFEdipine 2022-0 Yes 30mg Take 1 [facility] rs ER 30 mg 1-05 tablet by ity of tablet 00:00: mouth [place] 00 every Medical morning. Branch levothyroxi Yes [id number] 150ug Take 1 [facility] ne 150 mcg 1-05 tablet by ity of tablet 00:00: mouth [place] 00 every Medical morning. Branch tamsulosin 0 Yes [id number] .4mg Take 1 [facility] 0.4 mg 24 1-05 9102 capsule by ity of hr capsule 00:00: mouth in [place] as 00 the Medical morning. Branch budesonide 0 Yes [id number] .5mg Inhale 2 [facility] 0.5 mg/2 mL 1-05 mL in the ity of nebulizer 00:00: morning [place] solution 00 and 2 mL Medical in the Branch evening. traZODone 0 Yes [id number] 50mg Take 1 [facility] nivers 50 mg 1-05 tablet by ity of tablet 00:00: mouth at [place] 00 bedtime. Medical Branch glipiZIDE 0 Yes [id number] 2.5mg Take 1 [facility] n[facility] XL 2.5 mg 1-05 tablet by ity o f 24 hr 00:00: mouth in [place] tablet 00 the Medical morning Branch and 1 tablet in the evening. arformotero Yes [id number] 15ug Use 2 mL [facility] L 15 mcg/2 1-05 as ity of mL 00:00: directed [place] nebulizer 00 in the Medical solution morning Branch and 2 mL in the evening. ipratropium 0 Yes [id number] .5mg Inhale 2.5 [facility] 0.02 % 1-05 mL every 4 ity of nebulizer 00:00: (four) [place] solution 00 hours as Medical needed for Branch Wheezing or Shortness of Breath. cloNIDine 0 Yes [id number] .2mg Take 1 [facility] nivers 0.2 mg [...] every Medical morning. Branch levothyroxi 0 Yes [id number] 150ug Take 1 [facility] ne 150 mcg 1-05 tablet by ity of tablet 00:00: mouth [place] 00 every Medical morning. Branch tamsulosin 0 Yes [id number] .4mg Take 1 [facility] 0.4 mg 24 1-05 9102 capsule by ity of hr capsule 00:00: mouth in [place] as 00 the Medical morning. Branch budesonide 0 Yes [id number] .5mg Inhale 2 [facility] 0.5 mg/2 mL 1-05 mL in the ity of nebulizer 00:00: morning [place] solution 00 and 2 mL Medical in the Branch evening. traZODone 2022-0 Yes [id number] 50mg Take 1 [facility] nivers 50 mg 1-05 tablet by ity of tablet 00:00: mouth at [place] 00 bedtime. Medical Branch glipiZIDE 0 Yes [id number] 2.5mg Take 1 [facility] n[facility] XL 2.5 mg 1-05 tablet by ity o f 24 hr 00:00: mouth in [place] tablet 00 the Medical morning Branch and 1 tablet in the evening. arformotero Yes [id number] 15ug Use 2 mL [facility] L 15 mcg/2 1-05 as ity of mL 00:00: directed [place] nebulizer 00 in the Medical solution morning Branch and 2 mL in the evening. ipratropium 0 Yes [id number] .5mg Inhale 2.5 [facility] 0.02 % 1-05 mL every 4 ity of nebulizer 00:00: (four) [place] solution 00 hours as Medical needed for Branch Wheezing or Shortness of Breath. cloNIDine 0 Yes [id number] .2mg Take 1 [facility] nivers 0.2 mg [...] every Medical morning. Branch levothyroxi 0 Yes [id number] 150ug Take 1 [facility] ne 150 mcg 1-05 tablet by ity of tablet 00:00: mouth [place] 00 every Medical morning. Branch tamsulosin Yes [id number] .4mg Take 1 [facility] 0.4 mg 24 1-05 9102 capsule by ity of hr capsule 00:00: mouth in [place] as 00 the Medical morning. Branch budesonide 0 Yes [id number] .5mg Inhale 2 [facility] 0.5 mg/2 mL 1-05 mL in the ity of nebulizer 00:00: morning [place] solution 00 and 2 mL Medical in the Branch evening. traZODone 2022-0 Yes [id number] 50mg Take 1 [facility] nivers 50 mg 1-05 tablet by ity of tablet 00:00: mouth at [place] 00 bedtime. Medical Branch glipiZIDE 2022-0 Yes [id number] 2.5mg Take 1 [facility] n[facility] XL 2.5 mg 1-05 tablet by ity o f 24 hr 00:00: mouth in [place] tablet 00 the Medical morning Branch and 1 tablet in the evening. arformotero Yes [id number] 15ug Use 2 mL [facility] L 15 mcg/2 1-05 as ity of mL 00:00: directed [place] nebulizer 00 in the Medical solution morning Branch and 2 mL in the evening. ipratropium 0 Yes [id number] .5mg Inhale 2.5 [facility] 0.02 % 1-05 mL every 4 ity of nebulizer 00:00: (four) [place] solution 00 hours as Medical needed for Branch Wheezing or Shortness of Breath. cloNIDine 0 Yes [id number] .2mg Take 1 [facility] nivers 0.2 mg [...] every Medical morning. Branch levothyroxi 0 Yes [id number] 150ug Take 1 [facility] ne 150 mcg 1-05 tablet by ity of tablet 00:00: mouth [place] 00 every Medical morning. Branch tamsulosin 0 Yes [id number] .4mg Take 1 [facility] 0.4 mg 24 1-05 9102 capsule by ity of hr capsule 00:00: mouth in [place] as 00 the Medical morning. Branch budesonide 0 Yes [id number] .5mg Inhale 2 [facility] 0.5 mg/2 mL 1-05 mL in the ity of nebulizer 00:00: morning [place] solution 00 and 2 mL Medical in the Branch evening. traZODone 2022-0 Yes [id number] 50mg Take 1 [facility] nivers 50 mg 1-05 tablet by ity of tablet 00:00: mouth at [place] 00 bedtime. Medical Branch glipiZIDE 2022-0 Yes [id number] 2.5mg Take 1 [facility] n[facility] XL 2.5 mg 1-05 tablet by ity o f 24 hr 00:00: mouth in [place] tablet 00 the Medical morning Branch and 1 tablet in the evening. arformotero 0 Yes [id number] 15ug Use 2 mL [facility] L 15 mcg/2 1-05 as ity of mL 00:00: directed [place] nebulizer 00 in the Medical solution morning Branch and 2 mL in the evening. ipratropium 0 Yes [id number] .5mg Inhale 2.5 [facility] 0.02 % 1-05 mL every 4 ity of nebulizer 00:00: (four) [place] solution 00 hours as Medical needed for Branch Wheezing or Shortness of Breath. cloNIDine 0 Yes [id number] .2mg Take 1 [facility] nivers 0.2 mg 1-05 tablet by ity of tablet 00:00: mouth 3 [place] 00 (three) Medical times Branch daily as needed (Uncontrol led Hypertensi on). Take 1 Tab if BP > 150/90 NIFEdipine 2022-0 Yes 30mg Take 1 [facility] rs ER 30 mg 1-05 tablet by ity of tablet 00:00: mouth [place] 00 every Medical morning. Branch levothyroxi 0 Yes [id number] 150ug Take 1 [facility] ne 150 mcg 1-05 tablet by ity of tablet 00:00: mouth [place] 00 every Medical morning. Branch tamsulosin 0 Yes [id number] .4mg Take 1 [facility] 0.4 mg 24 1-05 9102 capsule by ity of hr capsule 00:00: mouth in [place] as 00 the Medical morning. Branch budesonide 0 Yes [id number] .5mg Inhale 2 [facility] 0.5 mg/2 mL 1-05 mL in the ity of nebulizer 00:00: morning [place] solution 00 and 2 mL Medical in the Branch evening. traZODone 2022-0 Yes [id number] 50mg Take 1 [facility] nivers 50 mg 1-05 tablet by ity of tablet 00:00: mouth at [place] 00 bedtime. Medical Branch glipiZIDE 0 Yes [id number] 2.5mg Take 1 [facility] n[facility] XL 2.5 mg 1-05 tablet by ity o f 24 hr 00:00: mouth in [place] tablet 00 the Medical morning Branch and 1 tablet in the evening. arformotero 2022-0 Yes [id number] 15ug Use 2 mL [facility] L 15 mcg/2 1-05 as ity of mL 00:00: directed [place] nebulizer 00 in the Medical solution morning Branch and 2 mL in the evening. ipratropium 2022-0 Yes [id number] .5mg Inhale 2.5 [facility] 0.02 % 1-05 mL every 4 ity of nebulizer 00:00: (four) [place] solution 00 hours as Medical needed for Branch Wheezing or Shortness of Breath. cloNIDine 0 Yes [id number] .2mg Take 1 [facility] nivers 0.2 mg [...] every Medical morning. Branch levothyroxi 0 Yes [id number] 150ug Take 1 [facility] ne 150 mcg 1-05 tablet by ity of tablet 00:00: mouth [place] 00 every Medical morning. Branch tamsulosin 0 Yes [id number] .4mg Take 1 [facility] 0.4 mg 24 1-05 9102 capsule by ity of hr capsule 00:00: mouth in [place] as 00 the Medical morning. Branch budesonide 2022-0 Yes [id number] .5mg Inhale 2 [facility] 0.5 mg/2 mL 1-05 mL in the ity of nebulizer 00:00: morning [place] solution 00 and 2 mL Medical in the Branch evening. traZODone 2022-0 Yes [id number] 50mg Take 1 [facility] nivers 50 mg 1-05 tablet by ity of tablet 00:00: mouth at [place] 00 bedtime. Medical Branch glipiZIDE 2022-0 Yes [id number] 2.5mg Take 1 [facility] n[facility] XL 2.5 mg 1-05 tablet by ity o f 24 hr 00:00: mouth in [place] tablet 00 the Medical morning Branch and 1 tablet in the evening. arformotero 0 Yes [id number] 15ug Use 2 mL [facility] L 15 mcg/2 1-05 as ity of mL 00:00: directed [place] nebulizer 00 in the Medical solution morning Branch and 2 mL in the evening. ipratropium 0 Yes [id number] .5mg Inhale 2.5 [facility] 0.02 % 1-05 mL every 4 ity of nebulizer 00:00: (four) [place] solution 00 hours as Medical needed for Branch Wheezing or Shortness of Breath. cloNIDine 0 Yes [id number] .2mg Take 1 [facility] nivers 0.2 mg [...] every Medical morning. Branch levothyroxi 0 Yes [id number] 150ug Take 1 [facility] ne 150 mcg 1-05 tablet by ity of tablet 00:00: mouth [place] 00 every Medical morning. Branch tamsulosin 0 Yes [id number] .4mg Take 1 [facility] 0.4 mg 24 1-05 9102 capsule by ity of hr capsule 00:00: mouth in [place] as 00 the Medical morning. Branch budesonide Yes [id number] .5mg Inhale 2 [facility] 0.5 mg/2 mL 1-05 mL in the ity of nebulizer 00:00: morning [place] solution 00 and 2 mL Medical in the Branch evening. traZODone 2022-0 Yes [id number] 50mg Take 1 [facility] nivers 50 mg 1-05 tablet by [facility]y of tablet 00:00: mouth at [place] 00 bedtime. Medical Branch glipiZIDE 2022-0 Yes [id number] 2.5mg Take 1 [facility] n[facility] XL 2.5 mg 1-05 tablet by ity o f 24 hr 00:00: mouth in [place] tablet 00 the Medical morning Branch and 1 tablet in the evening. arformotero 2022-0 Yes [id number] 15ug Use 2 mL [facility] L 15 mcg/2 1-05 as ity of mL 00:00: directed [place] nebulizer 00 in the Medical solution morning Branch and 2 mL in the evening. ipratropium 2022-0 Yes [id number] .5mg Inhale 2.5 [facility] 0.02 % 1-05 mL every 4 ity of nebulizer 00:00: (four) [place] solution 00 hours as Medical needed for Branch Wheezing or Shortness of Breath. cloNIDine 2022-0 Yes [id number] .2mg Take 1 [facility] nivers 0.2 mg [...] every Medical morning. Branch levothyroxi 0 Yes [id number] 150ug Take 1 [facility] ne 150 mcg 1-05 tablet by ity of tablet 00:00: mouth [place] 00 every Medical morning. Branch tamsulosin 0 Yes [id number] .4mg Take 1 [facility] 0.4 mg 24 1-05 9102 capsule by ity of hr capsule 00:00: mouth in [place] as 00 the Medical morning. Branch budesonide 2022-0 Yes [id number] .5mg Inhale 2 [facility] 0.5 mg/2 mL 1-05 mL in the ity of nebulizer 00:00: morning [place] solution 00 and 2 mL Medical in the Branch evening. traZODone 2022-0 Yes [id number] 50mg Take 1 [facility] nivers 50 mg 1-05 tablet by [facility]y of tablet 00:00: mouth at [place] 00 bedtime. Medical Branch glipiZIDE 2022-0 Yes [id number] 2.5mg Take 1 [facility] n[facility] XL 2.5 mg 1-05 tablet by ity o f 24 hr 00:00: mouth in [place] tablet 00 the Medical morning Branch and 1 tablet in the evening. arformotero 2022-0 Yes [id number] 15ug Use 2 mL [facility] L 15 mcg/2 1-05 as ity of mL 00:00: directed [place] nebulizer 00 in the Medical solution morning Branch and 2 mL in the evening. ipratropium 0 Yes [id number] .5mg Inhale 2.5 [facility] 0.02 % 1-05 mL every 4 ity of nebulizer 00:00: (four) [place] solution 00 hours as Medical needed for Branch Wheezing or Shortness of Breath. cloNIDine 0 Yes [id number] .2mg Take 1 [facility] nivers 0.2 mg [...] every Medical morning. Branch levothyroxi 0 Yes [id number] 150ug Take 1 [facility] ne 150 mcg 1-05 tablet by ity of tablet 00:00: mouth [place] 00 every Medical morning. Branch tamsulosin 0 Yes [id number] .4mg Take 1 [facility] 0.4 mg 24 1-05 9102 capsule by ity of hr capsule 00:00: mouth in [place] as 00 the Medical morning. Branch budesonide 0 Yes [id number] .5mg Inhale 2 [facility] 0.5 mg/2 mL 1-05 mL in the ity of nebulizer 00:00: morning [place] solution 00 and 2 mL Medical in the Branch evening. traZODone 0 Yes [id number] 50mg Take 1 [facility] n[facility] 50 mg 1-05 tablet by [facility] of tablet 00:00: mouth at [place] 00 bedtime. Medical Branch glipiZIDE 0 Yes [id number] 2.5mg Take 1 [facility] n[facility] XL 2.5 mg 1-05 tablet by ity o f 24 hr 00:00: mouth in [place] tablet 00 the Medical morning Branch and 1 tablet in the evening. arformotero 2022-0 Yes [id number] 15ug Use 2 mL [facility] L 15 mcg/2 1-05 as ity of mL 00:00: directed [place] nebulizer 00 in the Medical solution morning Branch and 2 mL in the evening. ipratropium 2022-0 Yes [id number] .5mg Inhale 2.5 [facility] 0.02 % 1-05 mL every 4 [facility] of nebulizer 00:00: (four) [place] solution 00 hours as Medical needed for Branch Wheezing or Shortness of Breath. cloNIDine 0 Yes [id number] .2mg Take 1 [facility] nivers 0.2 mg [...] every Medical morning. Branch levothyroxi 0 Yes [id number] 150ug Take 1 [facility] ne 150 mcg 1-05 tablet by [facility] of tablet 00:00: mouth [place] 00 every Medical morning. Branch tamsulosin 0 Yes [id number] .4mg Take 1 [facility] 0.4 mg 24 1-05 9102 capsule by ity of hr capsule 00:00: mouth in [place] as 00 the Medical morning. Branch budesonide 2022-0 Yes [id number] .5mg Inhale 2 [facility] 0.5 mg/2 mL 1-05 mL in the ity of nebulizer 00:00: morning [place] solution 00 and 2 mL Medical in the Branch evening. traZODone 2022-0 Yes [id number] 50mg Take 1 [facility] nivers 50 mg 1-05 tablet by [facility] of tablet 00:00: mouth at [place] 00 bedtime. Medical Branch glipiZIDE 2022-0 Yes [id number] 2.5mg Take 1 [facility] nivers XL 2.5 mg 1-05 tablet by ity o f 24 hr 00:00: mouth in [place] tablet 00 the Medical morning Branch and 1 tablet in the evening. arformotero 2022-0 Yes [id number] 15ug Use 2 mL [facility] L 15 mcg/2 1-05 as ity of mL 00:00: directed [place] nebulizer 00 in the Medical solution morning Branch and 2 mL in the evening. ipratropium 2022-0 Yes [id number] .5mg Inhale 2.5 [facility] 0.02 % 1-05 mL every 4 ity of nebulizer 00:00: (four) [place] solution 00 hours as Medical needed for Branch Wheezing or Shortness of Breath. cloNIDine 2022-0 Yes [id number] .2mg Take 1 [facility] nivers 0.2 mg [...] every Medical morning. Branch levothyroxi 2022-0 Yes [id number] 150ug Take 1 [facility] ne 150 mcg 1-05 tablet by [facility]y of tablet 00:00: mouth [place] 00 every Medical morning. Branch tamsulosin 2022-0 Yes [id number] .4mg Take 1 [facility] 0.4 mg 24 1-05 9102 capsule by ity of hr capsule 00:00: mouth in [place] as 00 the Medical morning. Branch budesonide 2022-0 Yes [id number] .5mg Inhale 2 [facility] 0.5 mg/2 mL 1-05 mL in the ity of nebulizer 00:00: morning [place] solution 00 and 2 mL Medical in the Branch evening. traZODone 2022-0 Yes [id number] 50mg Take 1 [facility] nivers 50 mg 1-05 tablet by [facility] of tablet 00:00: mouth at [place] 00 bedtime. Medical Branch glipiZIDE 2022-0 Yes [id number] 2.5mg Take 1 [facility] n[facility] XL 2.5 mg 1-05 tablet by ity o f 24 hr 00:00: mouth in [place] tablet 00 the Medical morning Branch and 1 tablet in the evening. arformotero 2022-0 Yes [id number] 15ug Use 2 mL [facility] L 15 mcg/2 1-05 as ity of mL 00:00: directed [place] nebulizer 00 in the Medical solution morning Branch and 2 mL in the evening. ipratropium 2022-0 Yes [id number] .5mg Inhale 2.5 [facility] 0.02 % 1-05 mL every 4 ity of nebulizer 00:00: (four) [place] solution 00 hours as Medical needed for Branch Wheezing or Shortness of Breath. cloNIDine 2022-0 Yes [id number] .2mg Take 1 [facility] nivers 0.2 mg 1-05 tablet by [facility]y of tablet 00:00: mouth 3 [place] 00 (three) Medical times Branch daily as needed (Uncontrol led Hypertensi on). Take 1 Tab if BP > 150/90 NIFEdipine 2022-0 Yes 30mg Take 1 [facility] rs ER 30 mg 1-05 tablet by [facility] of tablet 00:00: mouth [place] 00 every Medical morning. Branch levothyroxi 2022-0 Yes [id number] 150ug Take 1 [facility] ne 150 mcg 1-05 tablet by [facility]y of tablet 00:00: mouth [place] 00 every Medical morning. Branch tamsulosin 2022-0 Yes [id number] .4mg Take 1 [facility] 0.4 mg 24 1-05 9102 capsule by ity of hr capsule 00:00: mouth in [place] as 00 the Medical morning. Branch budesonide 2022-0 Yes [id number] .5mg Inhale 2 [facility] 0.5 mg/2 mL 1-05 mL in the ity of nebulizer 00:00: morning [place] solution 00 and 2 mL Medical in the Branch evening. traZODone 2022-0 Yes [id number] 50mg Take 1 [facility] n[facility] 50 mg 1-05 tablet by [facility] of tablet 00:00: mouth at [place] 00 bedtime. Medical Branch glipiZIDE 2022-0 Yes [id number] 2.5mg Take 1 [facility] n[facility] XL 2.5 mg 1-05 tablet by ity o f 24 hr 00:00: mouth in [place] tablet 00 the Medical morning Branch and 1 tablet in the evening. arformotero 2022-0 Yes [id number] 15ug Use 2 mL [facility] L 15 mcg/2 1-05 as ity of mL 00:00: directed [place] nebulizer 00 in the Medical solution morning Branch and 2 mL in the evening. ipratropium 2022-0 Yes [id number] .5mg Inhale 2.5 [facility] 0.02 % 1-05 mL every 4 ity of nebulizer 00:00: (four) [place] solution 00 hours as Medical needed for Branch Wheezing or Shortness of Breath. cloNIDine 2022-0 Yes [id number] .2mg Take 1 [facility] nivers 0.2 mg 1-05 tablet by [facility]y of tablet 00:00: mouth 3 [place] 00 (three) Medical times Branch daily as needed (Uncontrol led Hypertensi on). Take 1 Tab if BP > 150/90 NIFEdipine 2022-0 Yes 30mg Take 1 [facility] rs ER 30 mg 1-05 tablet by [facility] of tablet 00:00: mouth [place] 00 every Medical morning. Branch levothyroxi 2022-0 Yes [id number] 150ug Take 1 [facility] ne 150 mcg 1-05 tablet by [facility] of tablet 00:00: mouth [place] 00 every Medical morning. Branch tamsulosin 2022-0 Yes [id number] .4mg Take 1 [facility] 0.4 mg 24 1-05 9102 capsule by ity of hr capsule 00:00: mouth in [place] as 00 the Medical morning. Branch budesonide 0 Yes [id number] .5mg Inhale 2 [facility] 0.5 mg/2 mL 1-05 mL in the ity of nebulizer 00:00: morning [place] solution 00 and 2 mL Medical in the Branch evening. traZODone 2022-0 Yes [id number] 50mg Take 1 [facility] n[facility] 50 mg 1-05 tablet by [facility] of tablet 00:00: mouth at [place] 00 bedtime. Medical Branch glipiZIDE 0 Yes [id number] 2.5mg Take 1 [facility] nivers XL 2.5 mg 1-05 tablet by ity o f 24 hr 00:00: mouth in [place] tablet 00 the Medical morning Branch and 1 tablet in the evening. arformotero 2022-0 Yes [id number] 15ug Use 2 mL [facility] L 15 mcg/2 1-05 as ity of mL 00:00: directed [place] nebulizer 00 in the Medical solution morning Branch and 2 mL in the evening. ipratropium 2022-0 Yes [id number] .5mg Inhale 2.5 [facility] 0.02 % 1-05 mL every 4 ity of nebulizer 00:00: (four) [place] solution 00 hours as Medical needed for Branch Wheezing or Shortness of Breath. cloNIDine 2022-0 Yes [id number] .2mg Take 1 [facility] nivers 0.2 mg [...] every Medical morning. Branch levothyroxi 2022-0 Yes [id number] 150ug Take 1 [facility] ne 150 mcg 1-05 tablet by ity of tablet 00:00: mouth [place] 00 every Medical morning. Branch tamsulosin 0 Yes [id number] .4mg Take 1 [facility] 0.4 mg 24 1-05 9102 capsule by ity of hr capsule 00:00: mouth in [place] as 00 the Medical morning. Branch budesonide 2022-0 Yes [id number] .5mg Inhale 2 [facility] 0.5 mg/2 mL 1-05 mL in the ity of nebulizer 00:00: morning [place] solution 00 and 2 mL Medical in the Branch evening. traZODone 2022-0 Yes [id number] 50mg Take 1 [facility] nivers 50 mg 1-05 tablet by ity of tablet 00:00: mouth at [place] 00 bedtime. Medical Branch glipiZIDE 2022-0 Yes [id number] 2.5mg Take 1 [facility] nivers XL 2.5 mg 1-05 tablet by ity o f 24 hr 00:00: mouth in [place] tablet 00 the Medical morning Branch and 1 tablet in the evening. arformotero 0 Yes [id number] 15ug Use 2 mL [facility] L 15 mcg/2 1-05 as ity of mL 00:00: directed [place] nebulizer 00 in the Medical solution morning Branch and 2 mL in the evening. ipratropium 2022-0 Yes [id number] .5mg Inhale 2.5 [facility] 0.02 % 1-05 mL every 4 ity of nebulizer 00:00: (four) [place] solution 00 hours as Medical needed for Branch Wheezing or Shortness of Breath. cloNIDine 2022-0 Yes [id number] .2mg Take 1 [facility] nivers 0.2 mg [...] every Medical morning. Branch levothyroxi 2022-0 Yes [id number] 150ug Take 1 [facility] ne 150 mcg 1-05 tablet by ity of tablet 00:00: mouth [place] 00 every Medical morning. Branch tamsulosin Yes [id number] .4mg Take 1 [facility] 0.4 mg 24 1-05 9102 capsule by ity of hr capsule 00:00: mouth in [place] as 00 the Medical morning. Branch budesonide Yes [id number] .5mg Inhale 2 [facility] 0.5 mg/2 mL 1-05 mL in the ity of nebulizer 00:00: morning [place] solution 00 and 2 mL Medical in the Branch evening. traZODone Yes [id number] 50mg Take 1 [facility] nivers 50 mg 1-05 tablet by [facility]y of tablet 00:00: mouth at [place] 00 bedtime. Medical Branch glipiZIDE Yes [id number] 2.5mg Take 1 [facility] n[facility] XL 2.5 mg 1-05 tablet by ity o f 24 hr 00:00: mouth in [place] tablet 00 the Medical morning Branch and 1 tablet in the evening. arformotero Yes [id number] 15ug Use 2 mL [facility] L 15 mcg/2 1-05 as ity of mL 00:00: directed [place] nebulizer 00 in the Medical solution morning Branch and 2 mL in the evening. ipratropium Yes [id number] .5mg Inhale 2.5 [facility] 0.02 % 1-05 mL every 4 ity of nebulizer 00:00: (four) [place] solution 00 hours as Medical needed for Branch Wheezing or Shortness of Breath. cloNIDine Yes [id number] .2mg Take 1 [facility] nivers 0.2 mg 1-05 tablet by ity of tablet 00:00: mouth 3 [place] 00 (three) Medical times Branch daily as needed (Uncontrol led Hypertensi on). Take 1 Tab if BP > 150/90 NIFEdipine Yes 30mg Take 1 [facility] rs ER 30 mg 1-05 tablet by [facility] of tablet 00:00: mouth [place] 00 every Medical morning. Branch levothyroxi Yes [id number] 150ug Take 1 [facility] ne 150 mcg 1-05 tablet by ity of tablet 00:00: mouth [place] 00 every Medical morning. Branch tamsulosin Yes [id number] .4mg Take 1 [facility] 0.4 mg 24 1-05 9102 capsule by ity of hr capsule 00:00: mouth in [place] as 00 the Medical morning. Branch budesonide 2022-0 Yes [id number] .5mg Inhale 2 [facility] 0.5 mg/2 mL 1-05 mL in the ity of nebulizer 00:00: morning [place] solution 00 and 2 mL Medical in the Branch evening. traZODone 2022-0 Yes [id number] 50mg Take 1 [facility] nivers 50 mg 1-05 tablet by ity of tablet 00:00: mouth at [place] 00 bedtime. Medical Branch glipiZIDE 2022-0 Yes [id number] 2.5mg Take 1 [facility] n[facility] XL 2.5 mg 1-05 tablet by ity o f 24 hr 00:00: mouth in [place] tablet 00 the Medical morning Branch and 1 tablet in the evening. arformotero 2022-0 Yes [id number] 15ug Use 2 mL [facility] L 15 mcg/2 1-05 as ity of mL 00:00: directed [place] nebulizer 00 in the Medical solution morning Branch and 2 mL in the evening. ipratropium 2022-0 Yes [id number] .5mg Inhale 2.5 [facility] 0.02 % 1-05 mL every 4 ity of nebulizer 00:00: (four) [place] solution 00 hours as Medical needed for Branch Wheezing or Shortness of Breath. cloNIDine 2022-0 Yes [id number] .2mg Take 1 [facility] nivers 0.2 mg [...] every Medical morning. Branch levothyroxi 2022-0 Yes [id number] 150ug Take 1 [facility] ne 150 mcg 1-05 tablet by ity of tablet 00:00: mouth [place] 00 every Medical morning. Branch tamsulosin 2022-0 Yes [id number] .4mg Take 1 [facility] 0.4 mg 24 1-05 9102 capsule by ity of hr capsule 00:00: mouth in [place] as 00 the Medical morning. Branch budesonide 0 Yes [id number] .5mg Inhale 2 [facility] 0.5 mg/2 mL 1-05 mL in the ity of nebulizer 00:00: morning [place] solution 00 and 2 mL Medical in the Branch evening. traZODone 2022-0 Yes [id number] 50mg Take 1 [facility] nivers 50 mg 1-05 tablet by ity of tablet 00:00: mouth at [place] 00 bedtime. Medical Branch glipiZIDE 2022-0 Yes [id number] 2.5mg Take 1 [facility] nivers XL 2.5 mg 1-05 tablet by ity o f 24 hr 00:00: mouth in [place] tablet 00 the Medical morning Branch and 1 tablet in the evening. arformotero 0 Yes [id number] 15ug Use 2 mL [facility] L 15 mcg/2 1-05 as ity of mL 00:00: directed [place] nebulizer 00 in the Medical solution morning Branch and 2 mL in the evening. ipratropium 0 Yes [id number] .5mg Inhale 2.5 [facility] 0.02 % 1-05 mL every 4 ity of nebulizer 00:00: (four) [place] solution 00 hours as Medical needed for Branch Wheezing or Shortness of Breath. cloNIDine 0 Yes [id number] .2mg Take 1 [facility] nivers 0.2 mg [...] every Medical morning. Branch levothyroxi 2022-0 Yes [id number] 150ug Take 1 [facility] ne 150 mcg 1-05 tablet by ity of tablet 00:00: mouth [place] 00 every Medical morning. Branch tamsulosin 0 Yes [id number] .4mg Take 1 [facility] 0.4 mg 24 1-05 9102 capsule by ity of hr capsule 00:00: mouth in [place] as 00 the Medical morning. Branch budesonide 0 Yes [id number] .5mg Inhale 2 [facility] 0.5 mg/2 mL 1-05 mL in the ity of nebulizer 00:00: morning [place] solution 00 and 2 mL Medical in the Branch evening. traZODone 2022-0 Yes [id number] 50mg Take 1 [facility] nivers 50 mg 1-05 tablet by ity of tablet 00:00: mouth at [place] 00 bedtime. Medical Branch glipiZIDE 0 Yes [id number] 2.5mg Take 1 [facility] nivers XL 2.5 mg 1-05 tablet by ity o f 24 hr 00:00: mouth in [place] tablet 00 the Medical morning Branch and 1 tablet in the evening. arformotero Yes [id number] 15ug Use 2 mL [facility] L 15 mcg/2 1-05 as ity of mL 00:00: directed [place] nebulizer 00 in the Medical solution morning Branch and 2 mL in the evening. ipratropium 0 Yes [id number] .5mg Inhale 2.5 [facility] 0.02 % 1-05 mL every 4 ity of nebulizer 00:00: (four) [place] solution 00 hours as Medical needed for Branch Wheezing or Shortness of Breath. cloNIDine 0 Yes [id number] .2mg Take 1 [facility] nivers 0.2 mg 1-05 tablet by ity of tablet 00:00: mouth 3 [place] 00 (three) Medical times Branch daily as needed (Uncontrol led Hypertensi on). Take 1 Tab if BP > 150/90 NIFEdipine 0 Yes 30mg Take 1 [facility] rs ER 30 mg 1-05 tablet by ity of tablet 00:00: mouth [place] 00 every Medical morning. Branch levothyroxi 0 Yes [id number] 150ug Take 1 [facility] ne 150 mcg 1-05 tablet by ity of tablet 00:00: mouth [place] 00 every Medical morning. Branch tamsulosin 0 Yes [id number] .4mg Take 1 [facility] 0.4 mg 24 1-05 9102 capsule by ity of hr capsule 00:00: mouth in [place] as 00 the Medical morning. Branch budesonide 0 Yes [id number] .5mg Inhale 2 [facility] 0.5 mg/2 mL 1-05 mL in the ity of nebulizer 00:00: morning [place] solution 00 and 2 mL Medical in the Branch evening. traZODone 2022-0 Yes [id number] 50mg Take 1 [facility] nivers 50 mg 1-05 tablet by ity of tablet 00:00: mouth at [place] 00 bedtime. Medical Branch glipiZIDE 2022-0 Yes [id number] 2.5mg Take 1 [facility] nivers XL 2.5 mg 1-05 tablet by ity o f 24 hr 00:00: mouth in [place] tablet 00 the Medical morning Branch and 1 tablet in the evening. arformotero 2022-0 Yes [id number] 15ug Use 2 mL [facility] L 15 mcg/2 1-05 as ity of mL 00:00: directed [place] nebulizer 00 in the Medical solution morning Branch and 2 mL in the evening. ipratropium 2022-0 Yes [id number] .5mg Inhale 2.5 [facility] 0.02 % 1-05 mL every 4 ity of nebulizer 00:00: (four) [place] solution 00 hours as Medical needed for Branch Wheezing or Shortness of Breath. cloNIDine 2022-0 Yes [id number] .2mg Take 1 [facility] nivers 0.2 mg 1-05 tablet by ity of tablet 00:00: mouth 3 [place] 00 (three) Medical times Branch daily as needed (Uncontrol led Hypertensi on). Take 1 Tab if BP > 150/90 NIFEdipine 2022-0 Yes 30mg Take 1 [facility] rs ER 30 mg 1-05 tablet by ity of tablet 00:00: mouth [place] 00 every Medical morning. Branch levothyroxi 0 Yes [id number] 150ug Take 1 [facility] ne 150 mcg 1-05 tablet by ity of tablet 00:00: mouth [place] 00 every Medical morning. Branch tamsulosin 2022-0 Yes [id number] .4mg Take 1 [facility] 0.4 mg 24 1-05 9102 capsule by ity of hr capsule 00:00: mouth in [place] as 00 the Medical morning. Branch budesonide 2022-0 Yes [id number] .5mg Inhale 2 [facility] 0.5 mg/2 mL 1-05 mL in the ity of nebulizer 00:00: morning [place] solution 00 and 2 mL Medical in the Branch evening. traZODone 2022-0 Yes [id number] 50mg Take 1 [facility] nivers 50 mg 1-05 tablet by ity of tablet 00:00: mouth at [place] 00 bedtime. Medical Branch glipiZIDE 2022-0 Yes [id number] 2.5mg Take 1 [facility] n[facility] XL 2.5 mg 1-05 tablet by ity o f 24 hr 00:00: mouth in [place] tablet 00 the Medical morning Branch and 1 tablet in the evening. arformotero 0 Yes [id number] 15ug Use 2 mL [facility] L 15 mcg/2 1-05 as ity of mL 00:00: directed [place] nebulizer 00 in the Medical solution morning Branch and 2 mL in the evening. ipratropium 2022-0 Yes [id number] .5mg Inhale 2.5 [facility] 0.02 % 1-05 mL every 4 ity of nebulizer 00:00: (four) [place] solution 00 hours as Medical needed for Branch Wheezing or Shortness of Breath. cloNIDine 0 Yes [id number] .2mg Take 1 [facility] nivers 0.2 mg [...] every Medical morning. Branch levothyroxi 0 Yes [id number] 150ug Take 1 [facility] ne 150 mcg 1-05 tablet by ity of tablet 00:00: mouth [place] 00 every Medical morning. Branch tamsulosin 0 Yes [id number] .4mg Take 1 [facility] 0.4 mg 24 1-05 9102 capsule by ity of hr capsule 00:00: mouth in [place] as 00 the Medical morning. Branch budesonide 0 Yes [id number] .5mg Inhale 2 [facility] 0.5 mg/2 mL 1-05 mL in the ity of nebulizer 00:00: morning [place] solution 00 and 2 mL Medical in the Branch evening. traZODone 2022-0 Yes [id number] 50mg Take 1 [facility] nivers 50 mg 1-05 tablet by ity of tablet 00:00: mouth at [place] 00 bedtime. Medical Branch glipiZIDE 2022-0 Yes [id number] 2.5mg Take 1 [facility] n[facility] XL 2.5 mg 1-05 tablet by ity o f 24 hr 00:00: mouth in [place] tablet 00 the Medical morning Branch and 1 tablet in the evening. arformotero 2022-0 Yes [id number] 15ug Use 2 mL [facility] L 15 mcg/2 1-05 as ity of mL 00:00: directed [place] nebulizer 00 in the Medical solution morning Branch and 2 mL in the evening. ipratropium 2022-0 Yes [id number] .5mg Inhale 2.5 [facility] 0.02 % 1-05 mL every 4 ity of nebulizer 00:00: (four) [place] solution 00 hours as Medical needed for Branch Wheezing or Shortness of Breath. cloNIDine 0 Yes [id number] .2mg Take 1 [facility] nivers 0.2 mg [...] every Medical morning. Branch levothyroxi 0 Yes [id number] 150ug Take 1 [facility] ne 150 mcg 1-05 tablet by ity of tablet 00:00: mouth [place] 00 every Medical morning. Branch tamsulosin 0 Yes [id number] .4mg Take 1 [facility] 0.4 mg 24 1-05 9102 capsule by ity of hr capsule 00:00: mouth in [place] as 00 the Medical morning. Branch budesonide 0 Yes [id number] .5mg Inhale 2 [facility] 0.5 mg/2 mL 1-05 mL in the ity of nebulizer 00:00: morning [place] solution 00 and 2 mL Medical in the Branch evening. traZODone 0 Yes [id number] 50mg Take 1 [facility] nivers 50 mg 1-05 tablet by ity of tablet 00:00: mouth at [place] 00 bedtime. Medical Branch glipiZIDE 2022-0 Yes [id number] 2.5mg Take 1 [facility] nivers XL 2.5 mg 1-05 tablet by ity o f 24 hr 00:00: mouth in [place] tablet 00 the Medical morning Branch and 1 tablet in the evening. arformotero 2022-0 Yes [id number] 15ug Use 2 mL [facility] L 15 mcg/2 1-05 as ity of mL 00:00: directed [place] nebulizer 00 in the Medical solution morning Branch and 2 mL in the evening. ipratropium 2022-0 Yes [id number] .5mg Inhale 2.5 [facility] 0.02 % 1-05 mL every 4 ity of nebulizer 00:00: (four) [place] solution 00 hours as Medical needed for Branch Wheezing or Shortness of Breath. cloNIDine 0 Yes [id number] .2mg Take 1 [facility] nivers 0.2 mg [...] every Medical morning. Branch levothyroxi 0 Yes [id number] 150ug Take 1 [facility] ne 150 mcg 1-05 tablet by ity of tablet 00:00: mouth [place] 00 every Medical morning. Branch tamsulosin 0 Yes [id number] .4mg Take 1 [facility] 0.4 mg 24 1-05 9102 capsule by ity of hr capsule 00:00: mouth in [place] as 00 the Medical morning. Branch budesonide 0 Yes [id number] .5mg Inhale 2 [facility] 0.5 mg/2 mL 1-05 mL in the ity of nebulizer 00:00: morning [place] solution 00 and 2 mL Medical in the Branch evening. traZODone 2022-0 Yes [id number] 50mg Take 1 [facility] nivers 50 mg 1-05 tablet by ity of tablet 00:00: mouth at [place] 00 bedtime. Medical Branch glipiZIDE 2022-0 Yes [id number] 2.5mg Take 1 [facility] n[facility] XL 2.5 mg 1-05 tablet by ity o f 24 hr 00:00: mouth in [place] tablet 00 the Medical morning Branch and 1 tablet in the evening. arformotero 2022-0 Yes [id number] 15ug Use 2 mL [facility] L 15 mcg/2 1-05 as ity of mL 00:00: directed [place] nebulizer 00 in the Medical solution morning Branch and 2 mL in the evening. ipratropium 2022-0 Yes [id number] .5mg Inhale 2.5 [facility] 0.02 % 1-05 mL every 4 ity of nebulizer 00:00: (four) [place] solution 00 hours as Medical needed for Branch Wheezing or Shortness of Breath. cloNIDine 2022-0 Yes [id number] .2mg Take 1 [facility] nivers 0.2 mg [...] every Medical morning. Branch levothyroxi 2022-0 Yes [id number] 150ug Take 1 [facility] ne 150 mcg 1-05 tablet by ity of tablet 00:00: mouth [place] 00 every Medical morning. Branch tamsulosin 2022-0 Yes [id number] .4mg Take 1 [facility] 0.4 mg 24 1-05 9102 capsule by ity of hr capsule 00:00: mouth in [place] as 00 the Medical morning. Branch budesonide 2022-0 Yes [id number] .5mg Inhale 2 [facility] 0.5 mg/2 mL 1-05 mL in the ity of nebulizer 00:00: morning [place] solution 00 and 2 mL Medical in the Branch evening. traZODone 2022-0 Yes [id number] 50mg Take 1 [facility] nivers 50 mg 1-05 tablet by ity of tablet 00:00: mouth at [place] 00 bedtime. Medical Branch glipiZIDE 2022-0 Yes [id number] 2.5mg Take 1 [facility] n[facility] XL 2.5 mg 1-05 tablet by ity o f 24 hr 00:00: mouth in [place] tablet 00 the Medical morning Branch and 1 tablet in the evening. arformotero 2022-0 Yes [id number] 15ug Use 2 mL [facility] L 15 mcg/2 1-05 as ity of mL 00:00: directed [place] nebulizer 00 in the Medical solution morning Branch and 2 mL in the evening. ipratropium 2022-0 Yes [id number] .5mg Inhale 2.5 [facility] 0.02 % 1-05 mL every 4 ity of nebulizer 00:00: (four) [place] solution 00 hours as Medical needed for Branch Wheezing or Shortness of Breath. cloNIDine 2022- Yes [id number] .2mg Take 1 [facility] nivers 0.2 mg [...] every Medical morning. Branch levothyroxi 2022-0 Yes [id number] 150ug Take 1 [facility] ne 150 mcg 1-05 tablet by ity of tablet 00:00: mouth [place] 00 every Medical morning. Branch tamsulosin 0 Yes [id number] .4mg Take 1 [facility] 0.4 mg 24 1-05 9102 capsule by ity of hr capsule 00:00: mouth in [place] as 00 the Medical morning. Branch budesonide 0 Yes [id number] .5mg Inhale 2 [facility] 0.5 mg/2 mL 1-05 mL in the ity of nebulizer 00:00: morning [place] solution 00 and 2 mL Medical in the Branch evening. traZODone 2022-0 Yes [id number] 50mg Take 1 [facility] nivers 50 mg 1-05 tablet by ity of tablet 00:00: mouth at [place] 00 bedtime. Medical Branch glipiZIDE 0 Yes [id number] 2.5mg Take 1 [facility] n[facility] XL 2.5 mg 1-05 tablet by ity o f 24 hr 00:00: mouth in [place] tablet 00 the Medical morning Branch and 1 tablet in the evening. arformotero 2022-0 Yes [id number] 15ug Use 2 mL [facility] L 15 mcg/2 1-05 as ity of mL 00:00: directed [place] nebulizer 00 in the Medical solution morning Branch and 2 mL in the evening. ipratropium 2022-0 Yes [id number] .5mg Inhale 2.5 [facility] 0.02 % 1-05 mL every 4 ity of nebulizer 00:00: (four) [place] solution 00 hours as Medical needed for Branch Wheezing or Shortness of Breath. cloNIDine 2022-0 Yes [id number] .2mg Take 1 [facility] nivers 0.2 mg 1-05 tablet by ity of tablet 00:00: mouth 3 [place] 00 (three) Medical times Branch daily as needed (Uncontrol led Hypertensi on). Take 1 Tab if BP > 150/90 levothyroxi 2022-0 Yes [id number] 150ug Take 1 [facility] ne 150 mcg 1-05 tablet by ity of tablet 00:00: mouth [place] 00 every Medical morning. Branch tamsulosin 0 Yes [id number] .4mg Take 1 [facility] 0.4 mg 24 1-05 9102 capsule by ity of hr capsule 00:00: mouth in [place] as 00 the Medical morning. Branch budesonide 2022-0 Yes [id number] .5mg Inhale 2 [facility] 0.5 mg/2 mL 1-05 mL in the ity of nebulizer 00:00: morning [place] solution 00 and 2 mL Medical in the Branch evening. traZODone 2022-0 Yes [id number] 50mg Take 1 [facility] nivers 50 mg 1-05 tablet by ity of tablet 00:00: mouth at [place] 00 bedtime. Medical Branch glipiZIDE 2022-0 Yes [id number] 2.5mg Take 1 [facility] nivers XL 2.5 mg 1-05 tablet by ity o f 24 hr 00:00: mouth in [place] tablet 00 the Medical morning Branch and 1 tablet in the evening. arformotero 0 Yes [id number] 15ug Use 2 mL [facility] L 15 mcg/2 1-05 as ity of mL 00:00: directed [place] nebulizer 00 in the Medical solution morning Branch and 2 mL in the evening. ipratropium 2022-0 Yes [id number] .5mg Inhale 2.5 [facility] 0.02 % 1-05 mL every 4 ity of nebulizer 00:00: (four) [place] solution 00 hours as Medical needed for Branch Wheezing or Shortness of Breath. cloNIDine 2022-0 Yes [id number] .2mg Take 1 [facility] nivers 0.2 mg 1-05 tablet by ity of tablet 00:00: mouth 3 [place] 00 (three) Medical times Branch daily as needed (Uncontrol led Hypertensi on). Take 1 Tab if BP > 150/90 NIFEdipine 2022-0 Yes 30mg Take 1 Un[facility] rs ER 30 mg 1-05 tablet by ity of tablet 00:00: mouth [place] 00 every Medical morning. Branch levothyroxi Yes [id number] 150ug Take 1 [facility] ne 150 mcg 1-05 tablet by ity of tablet 00:00: mouth [place] 00 every Medical morning. Branch tamsulosin 0 Yes [id number] .4mg Take 1 [facility] 0.4 mg 24 1-05 9102 capsule by ity of hr capsule 00:00: mouth in [place] as 00 the Medical morning. Branch budesonide 0 Yes [id number] .5mg Inhale 2 [facility] 0.5 mg/2 mL 1-05 mL in the ity of nebulizer 00:00: morning [place] solution 00 and 2 mL Medical in the Branch evening. traZODone 0 Yes [id number] 50mg Take 1 [facility] nivers 50 mg 1-05 tablet by ity of tablet 00:00: mouth at [place] 00 bedtime. Medical Branch glipiZIDE 0 Yes [id number] 2.5mg Take 1 U nivers XL 2.5 mg 1-05 tablet by ity o f 24 hr 00:00: mouth in [place] tablet 00 the Medical morning Branch and 1 tablet in the evening. arformotero Yes [id number] 15ug Use 2 mL [facility] L 15 mcg/2 1-05 as ity of mL 00:00: directed [place] nebulizer 00 in the Medical solution morning Branch and 2 mL in the evening. ipratropium 0 Yes [id number] .5mg Inhale 2.5 [facility] 0.02 % 1-05 mL every 4 [facility]y of nebulizer 00:00: (four) [place] solution 00 hours as Medical needed for Branch Wheezing or Shortness of Breath. cloNIDine 0 Yes [id number] .2mg Take 1 U nivers 0.2 mg [...] every Medical morning. Branch levothyroxi 0 Yes [id number] 150ug Take 1 [facility] ne 150 mcg 1-05 tablet by it[facility] of tablet 00:00: mouth [place] 00 every Medical morning. Branch tamsulosin 2022-0 Yes [id number] .4mg Take 1 [facility] 0.4 mg 24 1-05 9102 capsule by ity of hr capsule 00:00: mouth in [place] as 00 the Medical morning. Branch budesonide 2022-0 Yes [id number] .5mg Inhale 2 [facility] 0.5 mg/2 mL 1-05 mL in the ity of nebulizer 00:00: morning [place] solution 00 and 2 mL Medical in the Branch evening. traZODone 2022-0 Yes [id number] 50mg Take 1 [facility] nivers 50 mg 1-05 tablet by [facility] of tablet 00:00: mouth at [place] 00 bedtime. Medical Branch glipiZIDE 2022-0 Yes [id number] 2.5mg Take 1 [facility] nivers XL 2.5 mg 1-05 tablet by ity o f 24 hr 00:00: mouth in [place] tablet 00 the Medical morning Branch and 1 tablet in the evening. arformotero 2022-0 Yes [id number] 15ug Use 2 mL [facility] L 15 mcg/2 1-05 as ity of mL 00:00: directed [place] nebulizer 00 in the Medical solution morning Branch and 2 mL in the evening. ipratropium 2022-0 Yes [id number] .5mg Inhale 2.5 [facility] 0.02 % 1-05 mL every 4 ity of nebulizer 00:00: (four) [place] solution 00 hours as Medical needed for Branch Wheezing or Shortness of Breath. cloNIDine 2022-0 Yes [id number] .2mg Take 1 [facility] nivers 0.2 mg [...] every Medical morning. Branch levothyroxi 2022-0 Yes [id number] 150ug Take 1 [facility] ne 150 mcg 1-05 tablet by it[facility] of tablet 00:00: mouth [place] 00 every Medical morning. Branch tamsulosin 2022-0 Yes [id number] .4mg Take 1 [facility] 0.4 mg 24 1-05 9102 capsule by ity of hr capsule 00:00: mouth in [place] as 00 the Medical morning. Branch budesonide Yes [id number] .5mg Inhale 2 [facility] 0.5 mg/2 mL 1-05 mL in the ity of nebulizer 00:00: morning [place] solution 00 and 2 mL Medical in the Branch evening. traZODone 0 Yes [id number] 50mg Take 1 [facility] n[facility] 50 mg 1-05 tablet by [facility] of tablet 00:00: mouth at [place] 00 bedtime. Medical Branch glipiZIDE 0 Yes [id number] 2.5mg Take 1 [facility] n[facility] XL 2.5 mg 1-05 tablet by ity o f 24 hr 00:00: mouth in [place] tablet 00 the Medical morning Branch and 1 tablet in the evening. arformotero Yes [id number] 15ug Use 2 mL [facility] L 15 mcg/2 1-05 as ity of mL 00:00: directed [place] nebulizer 00 in the Medical solution morning Branch and 2 mL in the evening. ipratropium Yes [id number] .5mg Inhale 2.5 [facility] 0.02 % 1-05 mL every 4 ity of nebulizer 00:00: (four) [place] solution 00 hours as Medical needed for Branch Wheezing or Shortness of Breath. cloNIDine Yes [id number] .2mg Take 1 [facility] nivers 0.2 mg 1-05 tablet by it[facility] of tablet 00:00: mouth 3 [place] 00 (three) Medical times Branch daily as needed (Uncontrol led Hypertensi on). Take 1 Tab if BP > 150/90 NIFEdipine Yes 30mg Take 1 [facility] rs ER 30 mg 1-05 tablet by [facility] of tablet 00:00: mouth [place] 00 every Medical morning. Branch levothyroxi 0 Yes [id number] 150ug Take 1 [facility] ne 150 mcg 1-05 tablet by it[facility] of tablet 00:00: mouth [place] 00 every Medical morning. Branch tamsulosin 0 Yes [id number] .4mg Take 1 [facility] 0.4 mg 24 1-05 9102 capsule by ity of hr capsule 00:00: mouth in [place] as 00 the Medical morning. Branch budesonide Yes [id number] .5mg Inhale 2 [facility] 0.5 mg/2 mL 1-05 mL in the ity of nebulizer 00:00: morning [place] solution 00 and 2 mL Medical in the Branch evening. traZODone 2022-0 Yes [id number] 50mg Take 1 [facility] 50 mg 1-05 tablet by it[facility] of tablet 00:00: mouth at [place] 00 bedtime. Medical Branch glipiZIDE 2022-0 Yes [id number] 2.5mg Take 1 [facility] n[facility] XL 2.5 mg 1-05 tablet by ity o f 24 hr 00:00: mouth in [place] tablet 00 the Medical morning Branch and 1 tablet in the evening. arformotero 2022-0 Yes [id number] 15ug Use 2 mL [facility] L 15 mcg/2 1-05 as ity of mL 00:00: directed [place] nebulizer 00 in the Medical solution morning Branch and 2 mL in the evening. ipratropium 2022-0 Yes [id number] .5mg Inhale 2.5 [facility] 0.02 % 1-05 mL every 4 ity of nebulizer 00:00: (four) [place] solution 00 hours as Medical needed for Branch Wheezing or Shortness of Breath. cloNIDine 2022-0 Yes [id number] .2mg Take 1 [facility] 0.2 mg 1-05 tablet by [facility] of tablet 00:00: mouth 3 [place] 00 (three) Medical times Branch daily as needed (Uncontrol led Hypertensi on). Take 1 Tab if BP > 150/90 NIFEdipine 2022-0 Yes 30mg Take 1 [facility] rs ER 30 mg 1-05 tablet by [facility] of tablet 00:00: mouth [place] 00 every Medical morning. Branch levothyroxi 2022-0 Yes [id number] 150ug Take 1 [facility] ne 150 mcg 1-05 tablet by ity of tablet 00:00: mouth [place] 00 every Medical morning. Branch tamsulosin 2022-0 Yes [id number] .4mg Take 1 [facility] 0.4 mg 24 1-05 9102 capsule by ity of hr capsule 00:00: mouth in [place] as 00 the Medical morning. Branch budesonide 2022-0 Yes [id number] .5mg Inhale 2 [facility] 0.5 mg/2 mL 1-05 mL in the ity of nebulizer 00:00: morning [place] solution 00 and 2 mL Medical in the Branch evening. traZODone 2022-0 Yes [id number] 50mg Take 1 [facility] 50 mg 1-05 tablet by [facility] of tablet 00:00: mouth at [place] 00 bedtime. Medical Branch glipiZIDE 0 Yes [id number] 2.5mg Take 1 [facility] n[facility] XL 2.5 mg 1-05 tablet by ity o f 24 hr 00:00: mouth in [place] tablet 00 the Medical morning Branch and 1 tablet in the evening. arformotero Yes [id number] 15ug Use 2 mL [facility] L 15 mcg/2 1-05 as ity of mL 00:00: directed [place] nebulizer 00 in the Medical solution morning Branch and 2 mL in the evening. ipratropium 0 Yes [id number] .5mg Inhale 2.5 [facility] 0.02 % 1-05 mL every 4 ity of nebulizer 00:00: (four) [place] solution 00 hours as Medical needed for Branch Wheezing or Shortness of Breath. cloNIDine Yes [id number] .2mg Take 1 [facility] n[facility] 0.2 mg 1-05 tablet by ity of tablet 00:00: mouth 3 [place] 00 (three) Medical times Branch daily as needed (Uncontrol led Hypertensi on). Take 1 Tab if BP > 150/90 NIFEdipine Yes 30mg Take 1 [facility] rs ER 30 mg 1-05 tablet by [facility]y of tablet 00:00: mouth [place] 00 every Medical morning. Branch levothyroxi Yes [id number] 150ug Take 1 [facility] ne 150 mcg 1-05 tablet by ity of tablet 00:00: mouth [place] 00 every Medical morning. Branch tamsulosin 0 Yes [id number] .4mg Take 1 [facility] 0.4 mg 24 1-05 9102 capsule by ity of hr capsule 00:00: mouth in [place] as 00 the Medical morning. Branch budesonide 0 Yes [id number] .5mg Inhale 2 [facility] 0.5 mg/2 mL 1-05 mL in the ity of nebulizer 00:00: morning [place] solution 00 and 2 mL Medical in the Branch evening. traZODone 2022-0 Yes [id number] 50mg Take 1 [facility] n[facility] 50 mg 1-05 tablet by [facility] of tablet 00:00: mouth at [place] 00 bedtime. Medical Branch glipiZIDE 2022-0 Yes [id number] 2.5mg Take 1 [facility] n[facility] XL 2.5 mg 1-05 tablet by ity o f 24 hr 00:00: mouth in [place] tablet 00 the Medical morning Branch and 1 tablet in the evening. arformotero 0 Yes [id number] 15ug Use 2 mL [facility] L 15 mcg/2 1-05 as ity of mL 00:00: directed [place] nebulizer 00 in the Medical solution morning Branch and 2 mL in the evening. ipratropium 0 Yes [id number] .5mg Inhale 2.5 [facility] 0.02 % 1-05 mL every 4 ity of nebulizer 00:00: (four) [place] solution 00 hours as Medical needed for Branch Wheezing or Shortness of Breath. cloNIDine 0 Yes [id number] .2mg Take 1 [facility] nivers 0.2 mg [...] every Medical morning. Branch levothyroxi 0 Yes [id number] 150ug Take 1 [facility] ne 150 mcg 1-05 tablet by [facility] of tablet 00:00: mouth [place] 00 every Medical morning. Branch tamsulosin 0 Yes [id number] .4mg Take 1 [facility] 0.4 mg 24 1-05 9102 capsule by ity of hr capsule 00:00: mouth in [place] as 00 the Medical morning. Branch budesonide 0 Yes [id number] .5mg Inhale 2 [facility] 0.5 mg/2 mL 1-05 mL in the ity of nebulizer 00:00: morning [place] solution 00 and 2 mL Medical in the Branch evening. traZODone 2022-0 Yes [id number] 50mg Take 1 [facility] 50 mg 1-05 tablet by [facility] of tablet 00:00: mouth at [place] 00 bedtime. Medical Branch glipiZIDE 2022-0 Yes [id number] 2.5mg Take 1 [facility] n[facility] XL 2.5 mg 1-05 tablet by ity o f 24 hr 00:00: mouth in [place] tablet 00 the Medical morning Branch and 1 tablet in the evening. arformotero 2022-0 Yes [id number] 15ug Use 2 mL [facility] L 15 mcg/2 1-05 as ity of mL 00:00: directed [place] nebulizer 00 in the Medical solution morning Branch and 2 mL in the evening. ipratropium 2022-0 Yes [id number] .5mg Inhale 2.5 [facility] 0.02 % 1-05 mL every 4 ity of nebulizer 00:00: (four) [place] solution 00 hours as Medical needed for Branch Wheezing or Shortness of Breath. cloNIDine 2022-0 Yes [id number] .2mg Take 1 [facility] nivers 0.2 mg [...] every Medical morning. Branch levothyroxi 0 Yes [id number] 150ug Take 1 [facility] ne 150 mcg 1-05 tablet by ity of tablet 00:00: mouth [place] 00 every Medical morning. Branch tamsulosin 2022-0 Yes [id number] .4mg Take 1 [facility] 0.4 mg 24 1-05 9102 capsule by ity of hr capsule 00:00: mouth in [place] as 00 the Medical morning. Branch budesonide 2022-0 Yes [id number] .5mg Inhale 2 [facility] 0.5 mg/2 mL 1-05 mL in the ity of nebulizer 00:00: morning [place] solution 00 and 2 mL Medical in the Branch evening. traZODone 2022-0 Yes [id number] 50mg Take 1 [facility] n[facility] 50 mg 1-05 tablet by it[facility] of tablet 00:00: mouth at [place] 00 bedtime. Medical Branch glipiZIDE 2022-0 Yes [id number] 2.5mg Take 1 [facility] n[facility] XL 2.5 mg 1-05 tablet by ity o f 24 hr 00:00: mouth in [place] tablet 00 the Medical morning Branch and 1 tablet in the evening. arformotero 2022-0 Yes [id number] 15ug Use 2 mL [facility] L 15 mcg/2 1-05 as ity of mL 00:00: directed [place] nebulizer 00 in the Medical solution morning Branch and 2 mL in the evening. ipratropium 0 Yes [id number] .5mg Inhale 2.5 [facility] 0.02 % 1-05 mL every 4 ity of nebulizer 00:00: (four) [place] solution 00 hours as Medical needed for Branch Wheezing or Shortness of Breath. cloNIDine 0 Yes [id number] .2mg Take 1 [facility] nivers 0.2 mg [...] every Medical morning. Branch levothyroxi 0 Yes [id number] 150ug Take 1 [facility] ne 150 mcg 1-05 tablet by ity of tablet 00:00: mouth [place] 00 every Medical morning. Branch tamsulosin 0 Yes [id number] .4mg Take 1 [facility] 0.4 mg 24 1-05 9102 capsule by ity of hr capsule 00:00: mouth in [place] as 00 the Medical morning. Branch budesonide Yes [id number] .5mg Inhale 2 [facility] 0.5 mg/2 mL 1-05 mL in the ity of nebulizer 00:00: morning [place] solution 00 and 2 mL Medical in the Branch evening. traZODone 0 Yes [id number] 50mg Take 1 [facility] 50 mg 1-05 tablet by ity of tablet 00:00: mouth at [place] 00 bedtime. Medical Branch glipiZIDE 0 Yes [id number] 2.5mg Take 1 [facility] n[facility] XL 2.5 mg 1-05 tablet by ity o f 24 hr 00:00: mouth in [place] tablet 00 the Medical morning Branch and 1 tablet in the evening. arformotero 0 Yes [id number] 15ug Use 2 mL [facility] L 15 mcg/2 1-05 as ity of mL 00:00: directed [place] nebulizer 00 in the Medical solution morning Branch and 2 mL in the evening. ipratropium 2022-0 Yes [id number] .5mg Inhale 2.5 [facility] 0.02 % 1-05 mL every 4 ity of nebulizer 00:00: (four) [place] solution 00 hours as Medical needed for Branch Wheezing or Shortness of Breath. cloNIDine 2022-0 Yes [id number] .2mg Take 1 [facility] nivers 0.2 mg [...] every Medical morning. Branch levothyroxi 0 Yes [id number] 150ug Take 1 [facility] ne 150 mcg 1-05 tablet by ity of tablet 00:00: mouth [place] 00 every Medical morning. Branch tamsulosin 0 Yes [id number] .4mg Take 1 [facility] 0.4 mg 24 1-05 9102 capsule by ity of hr capsule 00:00: mouth in [place] as 00 the Medical morning. Branch budesonide 2022-0 Yes [id number] .5mg Inhale 2 [facility] 0.5 mg/2 mL 1-05 mL in the ity of nebulizer 00:00: morning [place] solution 00 and 2 mL Medical in the Branch evening. traZODone 2022-0 Yes [id number] 50mg Take 1 [facility] n[facility] 50 mg 1-05 tablet by ity of tablet 00:00: mouth at [place] 00 bedtime. Medical Branch glipiZIDE 2022-0 Yes [id number] 2.5mg Take 1 [facility] n[facility] XL 2.5 mg 1-05 tablet by ity o f 24 hr 00:00: mouth in [place] tablet 00 the Medical morning Branch and 1 tablet in the evening. arformotero 2022-0 Yes [id number] 15ug Use 2 mL [facility] L 15 mcg/2 1-05 as ity of mL 00:00: directed [place] nebulizer 00 in the Medical solution morning Branch and 2 mL in the evening. ipratropium 2022-0 Yes [id number] .5mg Inhale 2.5 [facility] 0.02 % 1-05 mL every 4 ity of nebulizer 00:00: (four) [place] solution 00 hours as Medical needed for Branch Wheezing or Shortness of Breath. cloNIDine 2022-0 Yes [id number] .2mg Take 1 [facility] nivers 0.2 mg [...] every Medical morning. Branch levothyroxi 2022-0 Yes [id number] 150ug Take 1 [facility] ne 150 mcg 1-05 tablet by ity of tablet 00:00: mouth [place] 00 every Medical morning. Branch tamsulosin 0 Yes [id number] .4mg Take 1 [facility] 0.4 mg 24 1-05 9102 capsule by ity of hr capsule 00:00: mouth in [place] as 00 the Medical morning. Branch budesonide 2022-0 Yes [id number] .5mg Inhale 2 [facility] 0.5 mg/2 mL 1-05 mL in the ity of nebulizer 00:00: morning [place] solution 00 and 2 mL Medical in the Branch evening. traZODone 2022-0 Yes [id number] 50mg Take 1 [facility] n[facility] 50 mg 1-05 tablet by ity of tablet 00:00: mouth at [place] 00 bedtime. Medical Branch glipiZIDE 2022-0 Yes [id number] 2.5mg Take 1 [facility] n[facility] XL 2.5 mg 1-05 tablet by ity o f 24 hr 00:00: mouth in [place] tablet 00 the Medical morning Branch and 1 tablet in the evening. arformotero 2022-0 Yes [id number] 15ug Use 2 mL [facility] L 15 mcg/2 1-05 as ity of mL 00:00: directed [place] nebulizer 00 in the Medical solution morning Branch and 2 mL in the evening. ipratropium 2022-0 Yes [id number] .5mg Inhale 2.5 [facility] 0.02 % 1-05 mL every 4 ity of nebulizer 00:00: (four) [place] solution 00 hours as Medical needed for Branch Wheezing or Shortness of Breath. cloNIDine 2023-0 Yes [id number] .2mg Take 1 [facility] 0.2 mg 1-05 tablet by ity of tablet 00:00: mouth 3 [place] 00 (three) Medical times Branch daily as needed (Uncontrol led Hypertensi on). Take 1 Tab if BP > 150/90 NIFEdipine 2022-0 Yes 30mg Take 1 [facility] rs ER 30 mg 1-05 tablet by ity of tablet 00:00: mouth [place] 00 every Medical morning. Branch levothyroxi 2022-0 Yes [id number] 150ug Take 1 [facility] ne 150 mcg 1-05 tablet by ity of tablet 00:00: mouth [place] 00 every Medical morning. Branch tamsulosin 2022-0 Yes [id number] .4mg Take 1 [facility] 0.4 mg 24 1-05 9102 capsule by ity of hr capsule 00:00: mouth in [place] as 00 the Medical morning. Branch budesonide 0 Yes [id number] .5mg Inhale 2 [facility] 0.5 mg/2 mL 1-05 mL in the ity of nebulizer 00:00: morning [place] solution 00 and 2 mL Medical in the Branch evening. traZODone 2022-0 Yes [id number] 50mg Take 1 [facility] nivers 50 mg 1-05 tablet by ity of tablet 00:00: mouth at [place] 00 bedtime. Medical Branch glipiZIDE 2022-0 Yes [id number] 2.5mg Take 1 [facility] n[facility] XL 2.5 mg 1-05 tablet by ity o f 24 hr 00:00: mouth in [place] tablet 00 the Medical morning Branch and 1 tablet in the evening. arformotero 2022-0 Yes [id number] 15ug Use 2 mL [facility] L 15 mcg/2 1-05 as ity of mL 00:00: directed [place] nebulizer 00 in the Medical solution morning Branch and 2 mL in the evening. ipratropium 2022-0 Yes [id number] .5mg Inhale 2.5 [facility] 0.02 % 1-05 mL every 4 ity of nebulizer 00:00: (four) [place] solution 00 hours as Medical needed for Branch Wheezing or Shortness of Breath. cloNIDine 2022-0 Yes [id number] .2mg Take 1 [facility] n[facility] 0.2 mg 1-05 tablet by ity of tablet 00:00: mouth 3 [place] 00 (three) Medical times Branch daily as needed (Uncontrol led Hypertensi on). Take 1 Tab if BP > 150/90 NIFEdipine 2022-0 Yes 30mg Take 1 [facility] rs ER 30 mg 1-05 tablet by [facility]y of tablet 00:00: mouth [place] 00 every Medical morning. Branch levothyroxi 2022-0 Yes [id number] 150ug Take 1 [facility] ne 150 mcg 1-05 tablet by ity of tablet 00:00: mouth [place] 00 every Medical morning. Branch tamsulosin 2022-0 Yes [id number] .4mg Take 1 [facility] 0.4 mg 24 1-05 9102 capsule by ity of hr capsule 00:00: mouth in [place] as 00 the Medical morning. Branch budesonide 2022-0 Yes [id number] .5mg Inhale 2 [facility] 0.5 mg/2 mL 1-05 mL in the ity of nebulizer 00:00: morning [place] solution 00 and 2 mL Medical in the Branch evening. traZODone 2022-0 Yes [id number] 50mg Take 1 [facility] n[facility] 50 mg 1-05 tablet by [facility]y of tablet 00:00: mouth at [place] 00 bedtime. Medical Branch glipiZIDE 0 Yes [id number] 2.5mg Take 1 [facility] n[facility] XL 2.5 mg 1-05 tablet by ity o f 24 hr 00:00: mouth in [place] tablet 00 the Medical morning Branch and 1 tablet in the evening. arformotero 2022-0 Yes [id number] 15ug Use 2 mL [facility] L 15 mcg/2 1-05 as ity of mL 00:00: directed [place] nebulizer 00 in the Medical solution morning Branch and 2 mL in the evening. ipratropium 2022-0 Yes [id number] .5mg Inhale 2.5 [facility] 0.02 % 1-05 mL every 4 ity of nebulizer 00:00: (four) [place] solution 00 hours as Medical needed for Branch Wheezing or Shortness of Breath. cloNIDine 2022-0 Yes [id number] .2mg Take 1 [facility] nivers 0.2 mg [...] every Medical morning. Branch levothyroxi 0 Yes [id number] 150ug Take 1 [facility] ne 150 mcg 1-05 tablet by ity of tablet 00:00: mouth [place] 00 every Medical morning. Branch tamsulosin 0 Yes [id number] .4mg Take 1 [facility] 0.4 mg 24 1-05 9102 capsule by ity of hr capsule 00:00: mouth in [place] as 00 the Medical morning. Branch budesonide 0 Yes [id number] .5mg Inhale 2 [facility] 0.5 mg/2 mL 1-05 mL in the ity of nebulizer 00:00: morning [place] solution 00 and 2 mL Medical in the Branch evening. traZODone 0 Yes [id number] 50mg Take 1 [facility] n[facility] 50 mg 1-05 tablet by [facility]y of tablet 00:00: mouth at [place] 00 bedtime. Medical Branch glipiZIDE 0 Yes [id number] 2.5mg Take 1 [facility] n[facility] XL 2.5 mg 1-05 tablet by ity o f 24 hr 00:00: mouth in [place] tablet 00 the Medical morning Branch and 1 tablet in the evening. arformotero Yes [id number] 15ug Use 2 mL [facility] L 15 mcg/2 1-05 as ity of mL 00:00: directed [place] nebulizer 00 in the Medical solution morning Branch and 2 mL in the evening. ipratropium 0 Yes [id number] .5mg Inhale 2.5 [facility] 0.02 % 1-05 mL every 4 ity of nebulizer 00:00: (four) [place] solution 00 hours as Medical needed for Branch Wheezing or Shortness of Breath. cloNIDine 2022-0 Yes [id number] .2mg Take 1 [facility] nivers 0.2 mg [...] every Medical morning. Branch levothyroxi 0 Yes [id number] 150ug Take 1 [facility] ne 150 mcg 1-05 tablet by [facility]y of tablet 00:00: mouth [place] 00 every Medical morning. Branch tamsulosin Yes [id number] .4mg Take 1 [facility] 0.4 mg 24 1-05 9102 capsule by ity of hr capsule 00:00: mouth in [place] as 00 the Medical morning. Branch budesonide 0 Yes [id number] .5mg Inhale 2 [facility] 0.5 mg/2 mL 1-05 mL in the ity of nebulizer 00:00: morning [place] solution 00 and 2 mL Medical in the Branch evening. traZODone 0 Yes [id number] 50mg Take 1 [facility] n[facility] 50 mg 1-05 tablet by [facility] of tablet 00:00: mouth at [place] 00 bedtime. Medical Branch glipiZIDE Yes [id number] 2.5mg Take 1 [facility] n[facility] XL 2.5 mg 1-05 tablet by ity o f 24 hr 00:00: mouth in [place] tablet 00 the Medical morning Branch and 1 tablet in the evening. arformotero Yes [id number] 15ug Use 2 mL [facility] L 15 mcg/2 1-05 as ity of mL 00:00: directed [place] nebulizer 00 in the Medical solution morning Branch and 2 mL in the evening. ipratropium Yes [id number] .5mg Inhale 2.5 [facility] 0.02 % 1-05 mL every 4 ity of nebulizer 00:00: (four) [place] solution 00 hours as Medical needed for Branch Wheezing or Shortness of Breath. cloNIDine 0 Yes [id number] .2mg Take 1 [facility] nivers 0.2 mg [...] every Medical morning. Branch levothyroxi 0 Yes [id number] 150ug Take 1 [facility] ne 150 mcg 1-05 tablet by ity of tablet 00:00: mouth [place] 00 every Medical morning. Branch tamsulosin 2023-0 Yes [id number] .4mg Take 1 [facility] 0.4 mg 24 1-05 9102 capsule by ity of hr capsule 00:00: mouth in [place] as 00 the Medical morning. Branch budesonide 2022-0 Yes [id number] .5mg Inhale 2 [facility] 0.5 mg/2 mL 1-05 mL in the ity of nebulizer 00:00: morning [place] solution 00 and 2 mL Medical in the Branch evening. traZODone 2022-0 Yes [id number] 50mg Take 1 [facility] n[facility] 50 mg 1-05 tablet by [facility] of tablet 00:00: mouth at [place] 00 bedtime. Medical Branch glipiZIDE 2022-0 Yes [id number] 2.5mg Take 1 [facility] n[facility] XL 2.5 mg 1-05 tablet by ity o f 24 hr 00:00: mouth in [place] tablet 00 the Medical morning Branch and 1 tablet in the evening. arformotero 2022-0 Yes [id number] 15ug Use 2 mL [facility] L 15 mcg/2 1-05 as ity of mL 00:00: directed [place] nebulizer 00 in the Medical solution morning Branch and 2 mL in the evening. ipratropium 2022-0 Yes [id number] .5mg Inhale 2.5 [facility] 0.02 % 1-05 mL every 4 ity of nebulizer 00:00: (four) [place] solution 00 hours as Medical needed for Branch Wheezing or Shortness of Breath. cloNIDine 2022-0 Yes [id number] .2mg Take 1 [facility] nivers 0.2 mg [...] every Medical morning. Branch levothyroxi 2022-0 Yes [id number] 150ug Take 1 [facility] ne 150 mcg 1-05 tablet by [facility]y of tablet 00:00: mouth [place] 00 every Medical morning. Branch tamsulosin 2022-0 Yes [id number] .4mg Take 1 [facility] 0.4 mg 24 1- 9102 capsule by [facility]y of hr capsule 00:00: mouth in [place] as 00 the Medical morning. Branch budesonide 0 Yes [id number] .5mg Inhale 2 [facility] 0.5 mg/2 mL 1-05 mL in the ity of nebulizer 00:00: morning [place] solution 00 and 2 mL Medical in the Branch evening. traZODone 2022-0 Yes [id number] 50mg Take 1 [facility] n[facility] 50 mg 1-05 tablet by [facility] of tablet 00:00: mouth at [place] 00 bedtime. Medical Branch glipiZIDE 2022-0 Yes [id number] 2.5mg Take 1 [facility] n[facility] XL 2.5 mg 1-05 tablet by ity o f 24 hr 00:00: mouth in [place] tablet 00 the Medical morning Branch and 1 tablet in the evening. arformotero 0 Yes [id number] 15ug Use 2 mL [facility] L 15 mcg/2 1-05 as ity of mL 00:00: directed [place] nebulizer 00 in the Medical solution morning Branch and 2 mL in the evening. ipratropium 0 Yes [id number] .5mg Inhale 2.5 [facility] 0.02 % 1-05 mL every 4 ity of nebulizer 00:00: (four) [place] solution 00 hours as Medical needed for Branch Wheezing or Shortness of Breath. cloNIDine 0 Yes [id number] .2mg Take 1 [facility] nivers 0.2 mg [...] every Medical morning. Branch levothyroxi 0 Yes [id number] 150ug Take 1 [facility] ne 150 mcg 1-05 tablet by [facility]y of tablet 00:00: mouth [place] 00 every Medical morning. Branch tamsulosin 0 Yes [id number] .4mg Take 1 [facility] 0.4 mg 24 1-05 9102 capsule by [facility]y of hr capsule 00:00: mouth in [place] as 00 the Medical morning. Branch budesonide 0 Yes [id number] .5mg Inhale 2 [facility] 0.5 mg/2 mL 1-05 mL in the ity of nebulizer 00:00: morning [place] solution 00 and 2 mL Medical in the Branch evening. traZODone 0 Yes [id number] 50mg Take 1 [facility] n[facility] 50 mg 1-05 tablet by [facility] of tablet 00:00: mouth at [place] 00 bedtime. Medical Branch glipiZIDE 0 Yes [id number] 2.5mg Take 1 [facility] n[facility] XL 2.5 mg 1-05 tablet by [facility]y o f 24 hr 00:00: mouth in [place] tablet 00 the Medical morning Branch and 1 tablet in the evening. arformotero Yes [id number] 15ug Use 2 mL [facility] L 15 mcg/2 1-05 as ity of mL 00:00: directed [place] nebulizer 00 in the Medical solution morning Branch and 2 mL in the evening. ipratropium 0 Yes [id number] .5mg Inhale 2.5 [facility] 0.02 % 1-05 mL every 4 ity of nebulizer 00:00: (four) [place] solution 00 hours as Medical needed for Branch Wheezing or Shortness of Breath. cloNIDine 0 Yes [id number] .2mg Take 1 [facility] 0.2 mg 1-05 tablet by [facility] of tablet 00:00: mouth 3 [place] 00 (three) Medical times Branch daily as needed (Uncontrol led Hypertensi on). Take 1 Tab if BP > 150/90 NIFEdipine 0 Yes 30mg Take 1 [facility] rs ER 30 mg 1-05 tablet by [facility] of tablet 00:00: mouth [place] 00 every Medical morning. Branch levothyroxi 0 Yes [id number] 150ug Take 1 [facility] ne 150 mcg 1-05 tablet by [facility] of tablet 00:00: mouth [place] 00 every Medical morning. Branch tamsulosin 0 Yes [id number] .4mg Take 1 [facility] 0.4 mg 24 1-05 9102 capsule by [facility]y of hr capsule 00:00: mouth in [place] as 00 the Medical morning. Branch budesonide 0 Yes [id number] .5mg Inhale 2 [facility] 0.5 mg/2 mL 1-05 mL in the ity of nebulizer 00:00: morning [place] solution 00 and 2 mL Medical in the Branch evening. traZODone 2022-0 Yes [id number] 50mg Take 1 [facility] 50 mg 1-05 tablet by [facility] of tablet 00:00: mouth at [place] 00 bedtime. Medical Branch glipiZIDE 2022-0 Yes [id number] 2.5mg Take 1 [facility] nivers XL 2.5 mg 1-05 tablet by ity o f 24 hr 00:00: mouth in [place] tablet 00 the Medical morning Branch and 1 tablet in the evening. arformotero 2022-0 Yes [id number] 15ug Use 2 mL [facility] L 15 mcg/2 1-05 as ity of mL 00:00: directed [place] nebulizer 00 in the Medical solution morning Branch and 2 mL in the evening. ipratropium 2022-0 Yes [id number] .5mg Inhale 2.5 [facility] 0.02 % 1-05 mL every 4 ity of nebulizer 00:00: (four) [place] solution 00 hours as Medical needed for Branch Wheezing or Shortness of Breath. cloNIDine 2022-0 Yes [id number] .2mg Take 1 U nivers 0.2 mg 1-05 tablet by ity of tablet 00:00: mouth 3 [place] 00 (three) Medical times Branch daily as needed (Uncontrol led Hypertensi on). Take 1 Tab if BP > 150/90 NIFEdipine 2022-0 Yes 30mg Take 1 [facility] rs ER 30 mg 1-05 tablet by ity of tablet 00:00: mouth [place] 00 every Medical morning. Branch levothyroxi 0 Yes [id number] 150ug Take 1 [facility] ne 150 mcg 1-05 tablet by ity of tablet 00:00: mouth [place] 00 every Medical morning. Branch tamsulosin 2022-0 Yes [id number] .4mg Take 1 [facility] 0.4 mg 24 1-05 9102 capsule by ity of hr capsule 00:00: mouth in [place] as 00 the Medical morning. Branch budesonide 2022-0 Yes [id number] .5mg Inhale 2 [facility] 0.5 mg/2 mL 1-05 mL in the ity of nebulizer 00:00: morning [place] solution 00 and 2 mL Medical in the Branch evening. traZODone 2022-0 Yes [id number] 50mg Take 1 U nivers 50 mg 1-05 tablet by ity of tablet 00:00: mouth at [place] 00 bedtime. Medical Branch glipiZIDE 2022-0 Yes [id number] 2.5mg Take 1 U nivers XL 2.5 mg 1-05 tablet by ity o f 24 hr 00:00: mouth in [place] tablet 00 the Medical morning Branch and 1 tablet in the evening. arformotero 2022-0 Yes [id number] 15ug Use 2 mL [facility] L 15 mcg/2 1-05 as ity of mL 00:00: directed [place] nebulizer 00 in the Medical solution morning Branch and 2 mL in the evening. ipratropium 2022-0 Yes [id number] .5mg Inhale 2.5 [facility] 0.02 % 1-05 mL every 4 ity of nebulizer 00:00: (four) [place] solution 00 hours as Medical needed for Branch Wheezing or Shortness of Breath. cloNIDine 2022-0 Yes [id number] .2mg Take 1 U nivers 0.2 mg [...] every Medical morning. Branch levothyroxi 0 Yes [id number] 150ug Take 1 [facility] ne 150 mcg 1-05 tablet by ity of tablet 00:00: mouth [place] 00 every Medical morning. Branch tamsulosin 0 Yes [id number] .4mg Take 1 [facility] 0.4 mg 24 1-05 9102 capsule by ity of hr capsule 00:00: mouth in [place] as 00 the Medical morning. Branch budesonide 2022-0 Yes [id number] .5mg Inhale 2 [facility] 0.5 mg/2 mL 1-05 mL in the ity of nebulizer 00:00: morning [place] solution 00 and 2 mL Medical in the Branch evening. traZODone 2022-0 Yes [id number] 50mg Take 1 U nivers 50 mg 1-05 tablet by ity of tablet 00:00: mouth at [place] 00 bedtime. Medical Branch glipiZIDE 2022-0 Yes [id number] 2.5mg Take 1 U nivers XL 2.5 mg 1-05 tablet by ity o f 24 hr 00:00: mouth in [place] tablet 00 the Medical morning Branch and 1 tablet in the evening. arformotero 2022-0 Yes [id number] 15ug Use 2 mL [facility] L 15 mcg/2 1-05 as ity of mL 00:00: directed [place] nebulizer 00 in the Medical solution morning Branch and 2 mL in the evening. ipratropium 2022-0 Yes [id number] .5mg Inhale 2.5 [facility] 0.02 % 1-05 mL every 4 ity of nebulizer 00:00: (four) [place] solution 00 hours as Medical needed for Branch Wheezing or Shortness of Breath. cloNIDine 0 Yes [id number] .2mg Take 1 U nivers 0.2 mg [...] every Medical morning. Branch levothyroxi 0 Yes [id number] 150ug Take 1 [facility] ne 150 mcg 1-05 tablet by ity of tablet 00:00: mouth [place] 00 every Medical morning. Branch tamsulosin 0 Yes [id number] .4mg Take 1 [facility] 0.4 mg 24 1-05 9102 capsule by ity of hr capsule 00:00: mouth in [place] as 00 the Medical morning. Branch budesonide 2022-0 Yes [id number] .5mg Inhale 2 [facility] 0.5 mg/2 mL 1-05 mL in the ity of nebulizer 00:00: morning [place] solution 00 and 2 mL Medical in the Branch evening. traZODone 2022-0 Yes [id number] 50mg Take 1 U nivers 50 mg 1-05 tablet by ity of tablet 00:00: mouth at [place] 00 bedtime. Medical Branch glipiZIDE 2022-0 Yes [id number] 2.5mg Take 1 U nivers XL 2.5 mg 1-05 tablet by ity o f 24 hr 00:00: mouth in [place] tablet 00 the Medical morning Branch and 1 tablet in the evening. arformotero 2022-0 Yes [id number] 15ug Use 2 mL [facility] L 15 mcg/2 1-05 as ity of mL 00:00: directed [place] nebulizer 00 in the Medical solution morning Branch and 2 mL in the evening. ipratropium 2022-0 Yes [id number] .5mg Inhale 2.5 [facility] 0.02 % 1-05 mL every 4 ity of nebulizer 00:00: (four) [place] solution 00 hours as Medical needed for Branch Wheezing or Shortness of Breath. cloNIDine 0 Yes [id number] .2mg Take 1 U nivers 0.2 mg [...] every Medical morning. Branch levothyroxi 0 Yes [id number] 150ug Take 1 [facility] ne 150 mcg 1-05 tablet by ity of tablet 00:00: mouth [place] 00 every Medical morning. Branch tamsulosin 0 Yes [id number] .4mg Take 1 [facility] 0.4 mg 24 1-05 9102 capsule by ity of hr capsule 00:00: mouth in [place] as 00 the Medical morning. Branch budesonide 0 Yes [id number] .5mg Inhale 2 [facility] 0.5 mg/2 mL 1-05 mL in the ity of nebulizer 00:00: morning [place] solution 00 and 2 mL Medical in the Branch evening. traZODone 2022-0 Yes [id number] 50mg Take 1 U nivers 50 mg 1-05 tablet by ity of tablet 00:00: mouth at [place] 00 bedtime. Medical Branch glipiZIDE 2022-0 Yes [id number] 2.5mg Take 1 U nivers XL 2.5 mg 1-05 tablet by ity o f 24 hr 00:00: mouth in [place] tablet 00 the Medical morning Branch and 1 tablet in the evening. arformotero 2022-0 Yes [id number] 15ug Use 2 mL [facility] L 15 mcg/2 1-05 as ity of mL 00:00: directed [place] nebulizer 00 in the Medical solution morning Branch and 2 mL in the evening. ipratropium 2022-0 Yes [id number] .5mg Inhale 2.5 [facility] 0.02 % 1-05 mL every 4 ity of nebulizer 00:00: (four) [place] solution 00 hours as Medical needed for Branch Wheezing or Shortness of Breath. cloNIDine 2022-0 Yes [id number] .2mg Take 1 U nivers 0.2 mg [...] every Medical morning. Branch levothyroxi 2022-0 Yes [id number] 150ug Take 1 [facility] ne 150 mcg 1-05 tablet by ity of tablet 00:00: mouth [place] 00 every Medical morning. Branch tamsulosin 2022-0 Yes [id number] .4mg Take 1 [facility] 0.4 mg 24 1-05 9102 capsule by ity of hr capsule 00:00: mouth in [place] as 00 the Medical morning. Branch budesonide 2022-0 Yes [id number] .5mg Inhale 2 [facility] 0.5 mg/2 mL 1-05 mL in the ity of nebulizer 00:00: morning [place] solution 00 and 2 mL Medical in the Branch evening. traZODone 2022-0 Yes [id number] 50mg Take 1 [facility] nivers 50 mg 1-05 tablet by ity of tablet 00:00: mouth at [place] 00 bedtime. Medical Branch glipiZIDE 2022-0 Yes [id number] 2.5mg Take 1 U nivers XL 2.5 mg 1-05 tablet by ity o f 24 hr 00:00: mouth in [place] tablet 00 the Medical morning Branch and 1 tablet in the evening. arformotero 2022-0 Yes [id number] 15ug Use 2 mL [facility] L 15 mcg/2 1-05 as ity of mL 00:00: directed [place] nebulizer 00 in the Medical solution morning Branch and 2 mL in the evening. ipratropium 2022-0 Yes [id number] .5mg Inhale 2.5 [facility] 0.02 % 1-05 mL every 4 ity of nebulizer 00:00: (four) [place] solution 00 hours as Medical needed for Branch Wheezing or Shortness of Breath. cloNIDine 2022-0 Yes [id number] .2mg Take 1 U nivers 0.2 mg [...] every Medical morning. Branch levothyroxi 2022-0 Yes [id number] 150ug Take 1 [facility] ne 150 mcg 1-05 tablet by ity of tablet 00:00: mouth [place] 00 every Medical morning. Branch tamsulosin 2022-0 Yes [id number] .4mg Take 1 [facility] 0.4 mg 24 1-05 9102 capsule by ity of hr capsule 00:00: mouth in [place] as 00 the Medical morning. Branch budesonide 2022-0 Yes [id number] .5mg Inhale 2 [facility] 0.5 mg/2 mL 1-05 mL in the ity of nebulizer 00:00: morning [place] solution 00 and 2 mL Medical in the Branch evening. traZODone 2022-0 Yes [id number] 50mg Take 1 [facility] nivers 50 mg 1-05 tablet by ity of tablet 00:00: mouth at [place] 00 bedtime. Medical Branch glipiZIDE 2022-0 Yes [id number] 2.5mg Take 1 [facility] nivers XL 2.5 mg 1-05 tablet by ity o f 24 hr 00:00: mouth in [place] tablet 00 the Medical morning Branch and 1 tablet in the evening. arformotero 2022-0 Yes [id number] 15ug Use 2 mL [facility] L 15 mcg/2 1-05 as ity of mL 00:00: directed [place] nebulizer 00 in the Medical solution morning Branch and 2 mL in the evening. ipratropium 2022-0 Yes [id number] .5mg Inhale 2.5 [facility] 0.02 % 1-05 mL every 4 ity of nebulizer 00:00: (four) [place] solution 00 hours as Medical needed for Branch Wheezing or Shortness of Breath. cloNIDine 2022-0 Yes [id number] .2mg Take 1 [facility] nivers 0.2 mg 1-05 tablet by ity of tablet 00:00: mouth 3 [place] 00 (three) Medical times Branch daily as needed (Uncontrol led Hypertensi on). Take 1 Tab if BP > 150/90 NIFEdipine 2022-0 Yes 30mg Take 1 [facility] rs ER 30 mg 1-05 tablet by ity of tablet 00:00: mouth [place] 00 every Medical morning. Branch levothyroxi 2022-0 Yes [id number] 150ug Take 1 [facility] ne 150 mcg 1-05 tablet by ity of tablet 00:00: mouth [place] 00 every Medical morning. Branch tamsulosin 2022-0 Yes [id number] .4mg Take 1 [facility] 0.4 mg 24 1-05 9102 capsule by ity of hr capsule 00:00: mouth in [place] as 00 the Medical morning. Branch budesonide 0 Yes [id number] .5mg Inhale 2 [facility] 0.5 mg/2 mL 1-05 mL in the ity of nebulizer 00:00: morning [place] solution 00 and 2 mL Medical in the Branch evening. traZODone 2022-0 Yes [id number] 50mg Take 1 [facility] nivers 50 mg 1-05 tablet by ity of tablet 00:00: mouth at [place] 00 bedtime. Medical Branch glipiZIDE 2022-0 Yes [id number] 2.5mg Take 1 U nivers XL 2.5 mg 1-05 tablet by ity o f 24 hr 00:00: mouth in [place] tablet 00 the Medical morning Branch and 1 tablet in the evening. arformotero 2022-0 Yes [id number] 15ug Use 2 mL [facility] L 15 mcg/2 1-05 as ity of mL 00:00: directed [place] nebulizer 00 in the Medical solution morning Branch and 2 mL in the evening. ipratropium 2022-0 Yes [id number] .5mg Inhale 2.5 [facility] 0.02 % 1-05 mL every 4 ity of nebulizer 00:00: (four) [place] solution 00 hours as Medical needed for Branch Wheezing or Shortness of Breath. cloNIDine 2022-0 Yes [id number] .2mg Take 1 [facility] nivers 0.2 mg 1-05 tablet by ity of tablet 00:00: mouth 3 [place] 00 (three) Medical times Branch daily as needed (Uncontrol led Hypertensi on). Take 1 Tab if BP > 150/90 NIFEdipine 2022-0 Yes 30mg Take 1 [facility] rs ER 30 mg 1-05 tablet by ity of tablet 00:00: mouth [place] 00 every Medical morning. Branch levothyroxi 2022-0 Yes [id number] 150ug Take 1 [facility] ne 150 mcg 1-05 tablet by ity of tablet 00:00: mouth [place] 00 every Medical morning. Branch tamsulosin 2022-0 Yes [id number] .4mg Take 1 [facility] 0.4 mg 24 1-05 9102 capsule by ity of hr capsule 00:00: mouth in [place] as 00 the Medical morning. Branch budesonide 2022-0 Yes [id number] .5mg Inhale 2 [facility] 0.5 mg/2 mL 1-05 mL in the ity of nebulizer 00:00: morning [place] solution 00 and 2 mL Medical in the Branch evening. traZODone 2022-0 Yes [id number] 50mg Take 1 [facility] nivers 50 mg 1-05 tablet by ity of tablet 00:00: mouth at [place] 00 bedtime. Medical Branch glipiZIDE 2022-0 Yes [id number] 2.5mg Take 1 [facility] nivers XL 2.5 mg 1-05 tablet by ity o f 24 hr 00:00: mouth in [place] tablet 00 the Medical morning Branch and 1 tablet in the evening. arformotero 0 Yes [id number] 15ug Use 2 mL [facility] L 15 mcg/2 1-05 as ity of mL 00:00: directed [place] nebulizer 00 in the Medical solution morning Branch and 2 mL in the evening. ipratropium 2022-0 Yes [id number] .5mg Inhale 2.5 [facility] 0.02 % 1-05 mL every 4 ity of nebulizer 00:00: (four) [place] solution 00 hours as Medical needed for Branch Wheezing or Shortness of Breath. cloNIDine 2022-0 Yes [id number] .2mg Take 1 [facility] nivers 0.2 mg [...] every Medical morning. Branch levothyroxi 2022-0 Yes [id number] 150ug Take 1 [facility] ne 150 mcg 1-05 tablet by ity of tablet 00:00: mouth [place] 00 every Medical morning. Branch tamsulosin 0 Yes [id number] .4mg Take 1 [facility] 0.4 mg 24 1-05 9102 capsule by ity of hr capsule 00:00: mouth in [place] as 00 the Medical morning. Branch budesonide 2022-0 Yes [id number] .5mg Inhale 2 [facility] 0.5 mg/2 mL 1-05 mL in the ity of nebulizer 00:00: morning [place] solution 00 and 2 mL Medical in the Branch evening. traZODone 2022-0 Yes [id number] 50mg Take 1 [facility] nivers 50 mg 1-05 tablet by ity of tablet 00:00: mouth at [place] 00 bedtime. Medical Branch glipiZIDE 0 Yes [id number] 2.5mg Take 1 U nivers XL 2.5 mg 1-05 tablet by ity o f 24 hr 00:00: mouth in [place] tablet 00 the Medical morning Branch and 1 tablet in the evening. arformotero 0 Yes [id number] 15ug Use 2 mL [facility] L 15 mcg/2 1-05 as ity of mL 00:00: directed [place] nebulizer 00 in the Medical solution morning Branch and 2 mL in the evening. ipratropium 2022-0 Yes [id number] .5mg Inhale 2.5 [facility] 0.02 % 1-05 mL every 4 ity of nebulizer 00:00: (four) [place] solution 00 hours as Medical needed for Branch Wheezing or Shortness of Breath. cloNIDine 2022-0 Yes [id number] .2mg Take 1 U nivers 0.2 mg [...] every Medical morning. Branch levothyroxi 0 Yes [id number] 150ug Take 1 [facility] ne 150 mcg 1-05 tablet by ity of tablet 00:00: mouth [place] 00 every Medical morning. Branch tamsulosin Yes [id number] .4mg Take 1 [facility] 0.4 mg 24 03-08 9102 capsule by ity of hr capsule 00:00: mouth in [place] as 00 the Medical morning. Branch budesonide 0 Yes [id number] .5mg Inhale 2 [facility] 0.5 mg/2 mL 1-05 mL in the ity of nebulizer 00:00: morning [place] solution 00 and 2 mL Medical in the Branch evening. traZODone 0 Yes [id number] 50mg Take 1 [facility] nivers 50 mg 1-05 tablet by ity of tablet 00:00: mouth at [place] 00 bedtime. Medical Branch glipiZIDE 0 Yes [id number] 2.5mg Take 1 [facility] nivers XL 2.5 mg 1-05 tablet by ity o f 24 hr 00:00: mouth in [place] tablet 00 the Medical morning Branch and 1 tablet in the evening. arformotero 0 Yes [id number] 15ug Use 2 mL [facility] L 15 mcg/2 1-05 as ity of mL 00:00: directed [place] nebulizer 00 in the Medical solution morning Branch and 2 mL in the evening. ipratropium 0 Yes [id number] .5mg Inhale 2.5 [facility] 0.02 % 1-05 mL every 4 ity of nebulizer 00:00: (four) [place] solution 00 hours as Medical needed for Branch Wheezing or Shortness of Breath. cloNIDine 0 Yes [id number] .2mg Take 1 U nivers 0.2 mg 1-05 tablet by ity of tablet 00:00: mouth 3 [place] 00 (three) Medical times Branch daily as needed (Uncontrol led Hypertensi on). Take 1 Tab if BP > 150/90 NIFEdipine 0 Yes 30mg Take 1 Un[facility] rs ER 30 mg 1-05 tablet by ity of tablet 00:00: mouth [place] 00 every Medical morning. Branch albuterol 2022-0 202- No [id number] 2{puff} Inhale 2 [facility] 90 1-05 09-08 Puffs ity of mcg/actuati 00:00: 00:00 every 6 [place] on inhaler 00 :00 (six) Medical hours as Branch needed for Wheezing or Shortness of Breath. albuterol 2022- No [id number] 2{puff} Inhale 2 [facility] 90 1-05 09-08 Puffs ity of mcg/actuati 00:00: 00:00 every 6 [place] on inhaler 00 :00 (six) Medical hours as Branch needed for Wheezing or Shortness of Breath. albuterol 2022- No [id number] 2{puff} Inhale 2 [facility] 90 1-05 09-08 Puffs ity of mcg/actuati 00:00: 00:00 every 6 [place] on inhaler 00 :00 (six) Medical hours as Branch needed for Wheezing or Shortness of Breath. doxepin 25 2022- No [id number] 25mg Take 1 [facility] mg capsule 03-0818 capsule by it y of 00:00: 00:00 mouth at [place] 00 :00 bedtime. Medical Branch bumetanide 2022- No 1mg Take 1 [facility] ers 1 mg tablet 03-08 tablet by it y of 00:00: 00:00 mouth [place] 00 :00 every Medical morning Branch and evening. Indication s: reports kidney Dr Rx, ~2 mths ago NIFEdipine 2022- No [id number] 30mg Take 1 [facility] ER 30 mg 03-08 tablet by ity o f tablet 00:00: 00:00 mouth in [place] 00 :00 the Medical morning. Branch albuterol 2022- No [id number] 2.5mg Inhale 3 [facility] 2.5 mg /3 03-08 06-19 mL every 2 ity of mL (0.083 00:00: 00:00 (two) [place] %) 00 :00 hours as Medical nebulizer needed for Bran ch solution Shortness of Breath or Wheezing. ergocalcife 2021-03 Yes [id number] Take 1 [facility] rol, 2-14 capsule by ity of vitamin d2, 00:00: mouth [place] 1,250 mcg 00 weekly. Medical (50,000 Branch unit) capsule doxepin 25 2021-03 Yes [id number] 25mg Take 1 [facility] mg capsule 2-14 capsule by ity of 00:00: mouth at [place] 00 bedtime. Medical Branch hydrOXYzine 2021-03 Yes [id number] 25mg Take 1 [facility] 25 mg 2-14 capsule by ity of capsule 00:00: mouth 3 [place] 00 (three) Medical times Branch daily as needed for Itching. ergocalcife 2021-03 Yes [id number] Take 1 [facility] rol, 2-14 capsule by ity of vitamin d2, 00:00: mouth [place] 1,250 mcg 00 weekly. Medical (50,000 Branch unit) capsule doxepin 25 2021-03 Yes [id number] 25mg Take 1 [facility] mg capsule 2-14 capsule by ity of 00:00: mouth at [place] 00 bedtime. Medical Branch hydrOXYzine 2021-03 Yes [id number] 25mg Take 1 [facility] 25 mg 2-14 capsule by ity of capsule 00:00: mouth 3 [place] 00 (three) Medical times Branch daily as needed for Itching. ergocalcife 2021-03 Yes [id number] Take 1 [facility] rol, 2-14 capsule by ity of vitamin d2, 00:00: mouth [place] 1,250 mcg 00 weekly. Medical (50,000 Branch unit) capsule doxepin 25 2021-03 Yes [id number] 25mg Take 1 [facility] mg capsule 2-14 capsule by ity of 00:00: mouth at [place] 00 bedtime. Medical Branch hydrOXYzine 2021-03 Yes [id number] 25mg Take 1 [facility] 25 mg 2-14 capsule by ity of capsule 00:00: mouth 3 [place] 00 (three) Medical times Branch daily as needed for Itching. ergocalcife 2021-03 Yes [id number] Take 1 [facility] rol, 2-14 capsule by ity of vitamin d2, 00:00: mouth [place] 1,250 mcg 00 weekly. Medical (50,000 Branch unit) capsule doxepin 25 2021-03 Yes [id number] 25mg Take 1 [facility] mg capsule 2-14 capsule by ity of 00:00: mouth at [place] 00 bedtime. Medical Branch hydrOXYzine 2021-03 Yes [id number] 25mg Take 1 [facility] 25 mg 2-14 capsule by ity of capsule 00:00: mouth 3 [place] 00 (three) Medical times Branch daily as needed for Itching. ergocalcife 2021-03 Yes [id number] Take 1 [facility] rol, 2-14 capsule by ity of vitamin d2, 00:00: mouth [place] 1,250 mcg 00 weekly. Medical (50,000 Branch unit) capsule hydrOXYzine 2021-03 Yes [id number] 25mg Take 1 [facility] 25 mg 2-14 capsule by ity of capsule 00:00: mouth 3 [place] 00 (three) Medical times Branch daily as needed for Itching. ergocalcife 2021-03 Yes [id number] Take 1 [facility] rol, 2-14 capsule by ity of vitamin d2, 00:00: mouth [place] 1,250 mcg 00 weekly. Medical (50,000 Branch unit) capsule hydrOXYzine 2021-03 Yes [id number] 25mg Take 1 [facility] 25 mg 2-14 capsule by ity of capsule 00:00: mouth 3 [place] 00 (three) Medical times Branch daily as needed for Itching. ergocalcife 2021-03 Yes [id number] Take 1 [facility] rol, 2-14 capsule by ity of vitamin d2, 00:00: mouth [place] 1,250 mcg 00 weekly. Medical (50,000 Branch unit) capsule hydrOXYzine 2021-03 Yes [id number] 25mg Take 1 [facility] 25 mg 2-14 capsule by ity of capsule 00:00: mouth 3 [place] 00 (three) Medical times Branch daily as needed for Itching. ergocalcife 2021-03 Yes [id number] Take 1 [facility] rol, 2-14 capsule by ity of vitamin d2, 00:00: mouth [place] 1,250 mcg 00 weekly. Medical (50,000 Branch unit) capsule hydrOXYzine 2021-03 Yes [id number] 25mg Take 1 [facility] 25 mg 2-14 capsule by ity of capsule 00:00: mouth 3 [place] 00 (three) Medical times Branch daily as needed for Itching. ergocalcife 2021-03 Yes [id number] Take 1 [facility] rol, 2-14 capsule by ity of vitamin d2, 00:00: mouth [place] 1,250 mcg 00 weekly. Medical (50,000 Branch unit) capsule hydrOXYzine 2021-03 Yes [id number] 25mg Take 1 [facility] 25 mg 2-14 capsule by ity of capsule 00:00: mouth 3 [place] 00 (three) Medical times Branch daily as needed for Itching. ergocalcife 2021-03 Yes [id number] Take 1 [facility] rol, 2-14 capsule by ity of vitamin d2, 00:00: mouth [place] 1,250 mcg 00 weekly. Medical (50,000 Branch unit) capsule hydrOXYzine 2021-03 Yes [id number] 25mg Take 1 [facility] 25 mg 2-14 capsule by ity of capsule 00:00: mouth 3 [place] 00 (three) Medical times Branch daily as needed for Itching. ergocalcife 2021-03 Yes [id number] Take 1 [facility] rol, 2-14 capsule by ity of vitamin d2, 00:00: mouth [place] 1,250 mcg 00 weekly. Medical (50,000 Branch unit) capsule hydrOXYzine 2021-03 Yes [id number] 25mg Take 1 [facility] 25 mg 2-14 capsule by ity of capsule 00:00: mouth 3 [place] 00 (three) Medical times Branch daily as needed for Itching. ergocalcife 2021-03 Yes [id number] Take 1 [facility] rol, 2-14 capsule by ity of vitamin d2, 00:00: mouth [place] 1,250 mcg 00 weekly. Medical (50,000 Branch unit) capsule hydrOXYzine 2021-03 Yes [id number] 25mg Take 1 [facility] 25 mg 2-14 capsule by ity of capsule 00:00: mouth 3 [place] 00 (three) Medical times Branch daily as needed for Itching. ergocalcife 2021-03 Yes [id number] Take 1 [facility] rol, 2-14 capsule by ity of vitamin d2, 00:00: mouth [place] 1,250 mcg 00 weekly. Medical (50,000 Branch unit) capsule hydrOXYzine 2021-03 Yes [id number] 25mg Take 1 [facility] 25 mg 2-14 capsule by ity of capsule 00:00: mouth 3 [place] 00 (three) Medical times Branch daily as needed for Itching. ergocalcife 2021-03 Yes [id number] Take 1 [facility] rol, 2-14 capsule by ity of vitamin d2, 00:00: mouth [place] 1,250 mcg 00 weekly. Medical (50,000 Branch unit) capsule hydrOXYzine 2021-03 Yes [id number] 25mg Take 1 [facility] 25 mg 2-14 capsule by ity of capsule 00:00: mouth 3 [place] 00 (three) Medical times Branch daily as needed for Itching. ergocalcife 2021-03 Yes [id number] Take 1 [facility] rol, 2-14 capsule by ity of vitamin d2, 00:00: mouth [place] 1,250 mcg 00 weekly. Medical (50,000 Branch unit) capsule hydrOXYzine 2021-03 Yes [id number] 25mg Take 1 [facility] 25 mg 2-14 capsule by ity of capsule 00:00: mouth 3 [place] 00 (three) Medical times Branch daily as needed for Itching. ergocalcife 2021-03 Yes [id number] Take 1 [facility] rol, 2-14 capsule by ity of vitamin d2, 00:00: mouth [place] 1,250 mcg 00 weekly. Medical (50,000 Branch unit) capsule hydrOXYzine 2021-03 Yes [id number] 25mg Take 1 [facility] 25 mg 2-14 capsule by ity of capsule 00:00: mouth 3 [place] 00 (three) Medical times Branch daily as needed for Itching. ergocalcife 2021-03 Yes [id number] Take 1 [facility] rol, 2-14 capsule by ity of vitamin d2, 00:00: mouth [place] 1,250 mcg 00 weekly. Medical (50,000 Branch unit) capsule hydrOXYzine 2021-03 Yes [id number] 25mg Take 1 [facility] 25 mg 2-14 capsule by ity of capsule 00:00: mouth 3 [place] 00 (three) Medical times Branch daily as needed for Itching. ergocalcife 2021-03 Yes [id number] Take 1 [facility] rol, 2-14 capsule by ity of vitamin d2, 00:00: mouth [place] 1,250 mcg 00 weekly. Medical (50,000 Branch unit) capsule hydrOXYzine 2021-03 Yes [id number] 25mg Take 1 [facility] 25 mg 2-14 capsule by ity of capsule 00:00: mouth 3 [place] 00 (three) Medical times Branch daily as needed for Itching. ergocalcife 2021-03 Yes [id number] Take 1 [facility] rol, 2-14 capsule by ity of vitamin d2, 00:00: mouth [place] 1,250 mcg 00 weekly. Medical (50,000 Branch unit) capsule hydrOXYzine 2021-03 Yes [id number] 25mg Take 1 [facility] 25 mg 2-14 capsule by ity of capsule 00:00: mouth 3 [place] 00 (three) Medical times Branch daily as needed for Itching. ergocalcife 2021-03 Yes [id number] Take 1 [facility] rol, 2-14 capsule by ity of vitamin d2, 00:00: mouth [place] 1,250 mcg 00 weekly. Medical (50,000 Branch unit) capsule hydrOXYzine 2021-03 Yes [id number] 25mg Take 1 [facility] 25 mg 2-14 capsule by ity of capsule 00:00: mouth 3 [place] 00 (three) Medical times Branch daily as needed for Itching. ergocalcife 2021-03 Yes [id number] Take 1 [facility] rol, 2-14 capsule by ity of vitamin d2, 00:00: mouth [place] 1,250 mcg 00 weekly. Medical (50,000 Branch unit) capsule hydrOXYzine 2021-03 Yes [id number] 25mg Take 1 [facility] 25 mg 2-14 capsule by ity of capsule 00:00: mouth 3 [place] 00 (three) Medical times Branch daily as needed for Itching. ergocalcife 2021-03 Yes [id number] Take 1 [facility] rol, 2-14 capsule by ity of vitamin d2, 00:00: mouth [place] 1,250 mcg 00 weekly. Medical (50,000 Branch unit) capsule hydrOXYzine 2021-03 Yes [id number] 25mg Take 1 [facility] 25 mg 2-14 capsule by ity of capsule 00:00: mouth 3 [place] 00 (three) Medical times Branch daily as needed for Itching. ergocalcife 2021-03 Yes [id number] Take 1 [facility] rol, 2-14 capsule by ity of vitamin d2, 00:00: mouth [place] 1,250 mcg 00 weekly. Medical (50,000 Branch unit) capsule hydrOXYzine 2021-03 Yes [id number] 25mg Take 1 [facility] 25 mg 2-14 capsule by ity of capsule 00:00: mouth 3 [place] 00 (three) Medical times Branch daily as needed for Itching. ergocalcife 2021-03 Yes [id number] Take 1 [facility] rol, 2-14 capsule by [facility] of vitamin d2, 00:00: mouth [place] 1,250 mcg 00 weekly. Medical (50,000 Branch unit) capsule hydrOXYzine 2021-03 Yes [id number] 25mg Take 1 [facility] 25 mg 2-14 capsule by [facility] of capsule 00:00: mouth 3 [place] 00 (three) Medical times Branch daily as needed for Itching. ergocalcife 2021-03 Yes [id number] Take 1 [facility] rol, 2-14 capsule by [facility] of vitamin d2, 00:00: mouth [place] 1,250 mcg 00 weekly. Medical (50,000 Branch unit) capsule hydrOXYzine 2021-03 Yes [id number] 25mg Take 1 [facility] 25 mg 2-14 capsule by [facility] of capsule 00:00: mouth 3 [place] 00 (three) Medical times Branch daily as needed for Itching. ergocalcife 2021-03 Yes [id number] Take 1 [facility] rol, 2-14 capsule by [facility]y of vitamin d2, 00:00: mouth [place] 1,250 mcg 00 weekly. Medical (50,000 Branch unit) capsule hydrOXYzine 2021-03 Yes [id number] 25mg Take 1 [facility] 25 mg 2-14 capsule by [facility] of capsule 00:00: mouth 3 [place] 00 (three) Medical times Branch daily as needed for Itching. ergocalcife 2021-03 Yes [id number] Take 1 [facility] rol, 2-14 capsule by [facility]y of vitamin d2, 00:00: mouth [place] 1,250 mcg 00 weekly. Medical (50,000 Branch unit) capsule hydrOXYzine 2021-03 Yes [id number] 25mg Take 1 [facility] 25 mg 2-14 capsule by [facility] of capsule 00:00: mouth 3 [place] 00 (three) Medical times Branch daily as needed for Itching. ergocalcife 2021-03 Yes [id number] Take 1 [facility] rol, 2-14 capsule by [facility]y of vitamin d2, 00:00: mouth [place] 1,250 mcg 00 weekly. Medical (50,000 Branch unit) capsule hydrOXYzine 2021-03 Yes [id number] 25mg Take 1 [facility] 25 mg 2-14 capsule by [facility] of capsule 00:00: mouth 3 [place] 00 (three) Medical times Branch daily as needed for Itching. ergocalcife 2021-03 Yes [id number] Take 1 [facility] rol, 2-14 capsule by [facility]y of vitamin d2, 00:00: mouth [place] 1,250 mcg 00 weekly. Medical (50,000 Branch unit) capsule hydrOXYzine 2021-03 Yes [id number] 25mg Take 1 [facility] 25 mg 2-14 capsule by [facility] of capsule 00:00: mouth 3 [place] 00 (three) Medical times Branch daily as needed for Itching. ergocalcife 2021-03 Yes [id number] Take 1 [facility] rol, 2-14 capsule by [facility]y of vitamin d2, 00:00: mouth [place] 1,250 mcg 00 weekly. Medical (50,000 Branch unit) capsule hydrOXYzine 2021-03 Yes [id number] 25mg Take 1 [facility] 25 mg 2-14 capsule by [facility] of capsule 00:00: mouth 3 [place] 00 (three) Medical times Branch daily as needed for Itching. hydrOXYzine 2021-03 Yes [id number] 25mg Take 1 [facility] 25 mg 2-14 capsule by [facility] of capsule 00:00: mouth 3 [place] 00 (three) Medical times Branch daily as needed for Itching. hydrOXYzine 2021-03 Yes [id number] 25mg Take 1 [facility] 25 mg 2-14 capsule by [facility] of capsule 00:00: mouth 3 [place] (three) Medical times Branch daily as needed for Itching. hydrOXYzine 2021-03 Yes [id number] 25mg Take 1 [facility] 25 mg 2-14 capsule by [facility] of capsule 00:00: mouth 3 [place] (three) Medical times Branch daily as needed for Itching. hydrOXYzine 2021-03 Yes [id number] 25mg Take 1 [facility] 25 mg 2-14 capsule by [facility] of capsule 00:00: mouth 3 [place] (three) Medical times Branch daily as needed for Itching. hydrOXYzine 2021-03 Yes [id number] 25mg Take 1 [facility] 25 mg 2-14 capsule by [facility] of capsule 00:00: mouth 3 [place] (three) Medical times Branch daily as needed for Itching. hydrOXYzine 2021-03 Yes [id number] 25mg Take 1 [facility] 25 mg 2-14 capsule by [facility] of capsule 00:00: mouth 3 [place] 00 (three) Medical times Branch daily as needed for Itching. hydrOXYzine 2021-03 Yes [id number] 25mg Take 1 [facility] 25 mg 2-14 capsule by [facility] of capsule 00:00: mouth 3 [place] (three) Medical times Branch daily as needed for Itching. hydrOXYzine 2021-03 Yes [id number] 25mg Take 1 [facility] 25 mg 2-14 capsule by [facility] of capsule 00:00: mouth 3 [place] 00 (three) Medical times Branch daily as needed for Itching. hydrOXYzine 2021-03 Yes [id number] 25mg Take 1 [facility] 25 mg 2-14 capsule by [facility] of capsule 00:00: mouth 3 (three) Medical times Branch daily as needed for Itching. hydrOXYzine 2021-03 Yes [id number] 25mg Take 1 [facility] 25 mg 2-14 capsule by [facility] of capsule 00:00: mouth 3 (three) Medical times Branch daily as needed for Itching. hydrOXYzine 2021-03 Yes [id number] 25mg Take 1 [facility] 25 mg 2-14 capsule by [facility] of capsule 00:00: mouth (three) Medical times Branch daily as needed for Itching. hydrOXYzine 2021-03 Yes [id number] 25mg Take 1 [facility] 25 mg 2-14 capsule by [facility] of capsule 00:00: mouth (three) Medical times Branch daily as needed for Itching. hydrOXYzine 2021-03 Yes [id number] 25mg Take 1 [facility] 25 mg 2-14 capsule by [facility] of capsule 00:00: mouth (three) Medical times Branch daily as needed for Itching. hydrOXYzine 2021-03 Yes [id number] 25mg Take 1 [facility] 25 mg 2-14 capsule by [facility] of capsule 00:00: mouth (three) Medical times Branch daily as needed for Itching. hydrOXYzine 2021-03 Yes [id number] 25mg Take 1 [facility] 25 mg 2-14 capsule by [facility] of capsule 00:00: mouth (three) Medical times Branch daily as needed for Itching. hydrOXYzine 2021-03 Yes [id number] 25mg Take 1 [facility] 25 mg 2-14 capsule by [facility] of capsule 00:00: mouth (three) Medical times Branch daily as needed for Itching. hydrOXYzine 2021-03 Yes [id number] 25mg Take 1 [facility] 25 mg 2-14 capsule by [facility] of capsule 00:00: mouth (three) Medical times Branch daily as needed for Itching. hydrOXYzine 2021-1 Yes [id number] 25mg Take 1 [facility] 25 mg 2-14 capsule by [facility] of capsule 00:00: mouth 3 (three) Medical times Branch daily as needed for Itching. hydrOXYzine 2021-03 Yes [id number] 25mg Take 1 [facility] 25 mg 2-14 capsule by [facility] of capsule 00:00: mouth (three) Medical times Branch daily as needed for Itching. hydrOXYzine 2021-03 Yes [id number] 25mg Take 1 [facility] 25 mg 2-14 capsule by [facility] of capsule 00:00: mouth 3 [place] 00 (three) Medical times Branch daily as needed for Itching. hydrOXYzine 2021-03- No [id number] 25mg Take 1 [facility] 25 mg 2-14 08-08 capsule by [facility] of capsule 00:00: 00:00 mouth 3 [place] 00 :00 (three) Medical times Branch daily as needed for Itching. hydrOXYzine 2021-03- No [id number] 25mg Take 1 [facility] 25 mg 2-14 08-08 capsule by [facility]y of capsule 00:00: 00:00 mouth 3 [place] 00 :00 (three) Medical times Branch daily as needed for Itching. ergocalcife 2021-03- No [id number] Take 1 [facility] rol, 2-15 06-03 capsule by [facility] of vitamin d2, 00:00: 00:00 mouth [place] 1,250 mcg 00 :00 weekly. Medical (50,000 Branch unit) capsule ergocalcife 2021-03- No [id number] Take 1 [facility] rol, 2-14 - capsule by [facility] of vitamin d2, 00:00: 00:00 mouth [place] 1,250 mcg 00 :00 weekly. Medical (50,000 Branch unit) capsule doxepin 25 2021-03- No [id number] 25mg Take 1 [facility] mg capsule -17 03- capsule by it y of 00:00: 00:00 mouth at [place] 00 :00 bedtime. Medical Branch doxepin 25 2021-03- No [id number] 25mg Take 1 [facility] mg capsule 2-17 03- capsule by it y of 00:00: 00:00 mouth at [place] 00 :00 bedtime. Medical Branch doxepin 25 2021-03- No [id number] 25mg Take 1 [facility] mg capsule 2-17 03- capsule by it y of 00:00: 00:00 mouth at [place] 00 :00 bedtime. Medical Branch doxepin 25 2021-03- No [id number] 25mg Take 1 [facility] mg capsule 2-17 03- capsule by it y of 00:00: 00:00 mouth at [place] 00 :00 bedtime. Medical Branch benzonatate 2021-03 Yes [id number] 100mg Take 1 [facility] (TESSALON 2-13 capsule by ity of PERLES) 100 00:00: mouth [place] mg capsule 00 every 8 Medica l (eight) Branch hours as needed for Cough. benzonatate 2021-03 Yes [id number] 100mg Take 1 [facility] (TESSALON 2-13 capsule by ity of PERLES) 100 00:00: mouth [place] mg capsule 00 every 8 Medica l (eight) Branch hours as needed for Cough. benzonatate 2021-03 Yes [id number] 100mg Take 1 [facility] (TESSALON 2-13 capsule by ity of PERLES) 100 00:00: mouth [place] mg capsule 00 every 8 Medica l (eight) Branch hours as needed for Cough. benzonatate 2021-03 Yes [id number] 100mg Take 1 [facility] (TESSALON 2-13 capsule by ity of PERLES) 100 00:00: mouth [place] mg capsule 00 every 8 Medica l (eight) Branch hours as needed for Cough. benzonatate 2021-03 Yes [id number] 100mg Take 1 [facility] (TESSALON 2-13 capsule by ity of PERLES) 100 00:00: mouth [place] mg capsule 00 every 8 Medica l (eight) Branch hours as needed for Cough. benzonatate 2021-03 Yes [id number] 100mg Take 1 [facility] (TESSALON 2-13 capsule by ity of PERLES) 100 00:00: mouth [place] mg capsule 00 every 8 Medica l (eight) Branch hours as needed for Cough. benzonatate 2021-03 Yes [id number] 100mg Take 1 [facility] (TESSALON 2-13 capsule by ity of PERLES) 100 00:00: mouth [place] mg capsule 00 every 8 Medica l (eight) Branch hours as needed for Cough. benzonatate 2021-03 Yes [id number] 100mg Take 1 [facility] (TESSALON 2-13 capsule by ity of PERLES) 100 00:00: mouth [place] mg capsule 00 every 8 Medica l (eight) Branch hours as needed for Cough. benzonatate 2021-03- No [id number] 100mg Take 1 [facility] (TESSALON 2-13 01-08 capsule by ity of PERLES) 100 00:00: 00:00 mouth [place] mg capsule 00 :00 every 8 Medica l (eight) Branch hours as needed for Cough. benzonatate 2021-03- No [id number] 100mg Take 1 [facility] (TESSALON 2-08 capsule by [place]) 100 00:00: 00:00 mouth [place] mg capsule 00 :00 every 8 Medica l (eight) Branch hours as needed for Cough. benzonatate 2021-03- No [id number] 100mg Take 1 [facility] (TESSALON 2- capsule by [facility]) 100 00:00: 00:00 mouth [place] [...] 1{tbl} Take 1 [facility] en-codeine 1-27 07-31 tablet by ity of (TYLENOL-CO 00:00: 00:00 mouth [place] DEINE #3) 00 :00 every 6 Medical 300-30 mg (six) Branch tablet hours as needed for Pain (scale 7-10). Indication s: acute pain, chronic pain acetaminoph 2021-03 No 5 1{tbl} Take 1 [facility] en-codeine 03-30- [...] 1{tbl} Take 1 [facility] en-codeine 1-27 07-31 tablet by ity of (TYLENOL-CO 00:00: 00:00 mouth [place] DE[place] #3) 00 :00 every 6 Medical 300-30 mg (six) Branch tablet hours as needed for Pain (scale 7-10). Indication s: acute pain, chronic pain benzonatate 2021-03 Yes [id number] 100mg Take 1 [facility] (TESSALON 1-25 capsule by ity of PERLES) 100 00:00: mouth [place] mg capsule 00 every 8 Medica l (eight) Branch hours as needed for Cough. benzonatate 2021-03 Yes [id number] 100mg Take 1 [facility] (TESSALON 1-25 capsule by ity of PERLES) 100 00:00: mouth [place] mg capsule 00 every 8 Medica l (eight) Branch hours as needed for Cough. benzonatate 2021-03 Yes [id number] 100mg Take 1 [facility] (TESSALON 1-25 capsule by ity of PERLES) 100 00:00: mouth [place] mg capsule 00 every 8 Medica l (eight) Branch hours as needed for Cough. benzonatate 2021-03 Yes [id number] 100mg Take 1 [facility] (TESSALON 1-25 capsule by ity of PERLES) 100 00:00: mouth [place] mg capsule 00 every 8 Medica l (eight) Branch hours as needed for Cough. benzonatate 2021-03 Yes [id number] 100mg Take 1 [facility] (TESSALON 1-25 capsule by ity of PERLES) 100 00:00: mouth [place] mg capsule 00 every 8 Medica l (eight) Branch hours as needed for Cough. benzonatate 2021-03- No [id number] 100mg Take 1 [facility] (TESSALON 1-25 12-12 capsule by ity of PERLES) 100 00:00: 00:00 mouth [place] mg capsule 00 :00 every 8 Medica l (eight) Branch hours as needed for Cough. hydrOXYzine 2021-03 Yes [id number] 25mg Take 1 [facility] 25 mg 1-17 capsule by ity of capsule 00:00: mouth 3 [place] 00 (three) Medical times Branch daily as needed for Itching. hydrOXYzine 2021-03 Yes [id number] 25mg Take 1 [facility] 25 mg 1-17 capsule by ity of capsule 00:00: mouth 3 [place] 00 (three) Medical times Branch daily as needed for Itching. hydrOXYzine 2021-03 Yes [id number] 25mg Take 1 [facility] 25 mg 1-17 capsule by ity of capsule 00:00: mouth 3 (three) Medical times Branch daily as needed for Itching. hydrOXYzine 2021-03 Yes [id number] 25mg Take 1 [facility] 25 mg 1-17 capsule by ity of capsule 00:00: mouth 3 [place] (three) Medical times Branch daily as needed for Itching. hydrOXYzine 2021-03 Yes [id number] 25mg Take 1 [facility] 25 mg 1-17 capsule by ity of capsule 00:00: mouth 3 [place] (three) Medical times Branch daily as needed for Itching. hydrOXYzine 2021-03 Yes [id number] 25mg Take 1 [facility] 25 mg 1-17 capsule by ity of capsule 00:00: mouth 3 [place] (three) Medical times Branch daily as needed for Itching. hydrOXYzine 2021-03 Yes [id number] 25mg Take 1 [facility] 25 mg 1-17 capsule by ity of capsule 00:00: mouth 3 [place] (three) Medical times Branch daily as needed for Itching. hydrOXYzine 2021-03 Yes [id number] 25mg Take 1 [facility] 25 mg 1-17 capsule by ity of capsule 00:00: mouth 3 [place] (three) Medical times Branch daily as needed for Itching. hydrOXYzine 2021-03- No [id number] 25mg Take 1 [facility] 25 mg 1-17 12-12 capsule by ity of capsule 00:00: 00:00 mouth 3 [place] 00 :00 (three) Medical times Branch daily as needed for Itching. pravastatin 2021-03 Yes [id number] 40mg Take 1 [facility] 40 mg 1-11 tablet by ity of tablet 00:00: mouth at [place] [address] bedtime. Medical Branch pravastatin 2021-03 Yes [id number] 40mg Take 1 [facility] 40 mg 1-11 tablet by ity of tablet 00:00: mouth at [place] [address] bedtime. Medical Branch pravastatin 2021-03 Yes [id number] 40mg Take 1 [facility] 40 mg 1-11 tablet by ity of tablet 00:00: mouth at [place] [address] bedtime. Medical Branch pravastatin 2021-03 Yes [id number] 40mg Take 1 [facility] 40 mg 1-11 tablet by ity of tablet 00:00: mouth at [place] [address] bedtime. Medical Branch pravastatin 2021-03 Yes [id number] 40mg Take 1 [facility] 40 mg 1-11 tablet by ity of tablet 00:00: mouth at [place] [address] bedtime. Medical Branch pravastatin 2021-03 Yes [id number] 40mg Take 1 [facility] 40 mg 1-11 tablet by ity of tablet 00:00: mouth at [place] [address] bedtime. Medical Branch pravastatin 2021-03 Yes [id number] 40mg Take 1 [facility] 40 mg 1-11 tablet by ity of tablet 00:00: mouth at [place] [address] bedtime. Medical Branch pravastatin 2021-03 Yes [id number] 40mg Take 1 [facility] 40 mg 1-11 tablet by ity of tablet 00:00: mouth at [place] [address] bedtime. Medical Branch pravastatin 2021-03 Yes [id number] 40mg Take 1 [facility] 40 mg 1-11 tablet by ity of tablet 00:00: mouth at [place] [address] bedtime. Medical Branch pravastatin 2021-03 Yes [id number] 40mg Take 1 [facility] 40 mg 1-11 tablet by ity of tablet 00:00: mouth at [place] [address] bedtime. Medical Branch pravastatin 2021-03 Yes [id number] 40mg Take 1 [facility] 40 mg 1-11 tablet by ity of tablet 00:00: mouth at [place] [address] bedtime. Medical Branch pravastatin 2021-03 Yes [id number] 40mg Take 1 [facility] 40 mg 1-11 tablet by ity of tablet 00:00: mouth at [place] [address] bedtime. Medical Branch pravastatin 2021-03 Yes [id number] 40mg Take 1 [facility] 40 mg 1-11 tablet by ity of tablet 00:00: mouth at [place] [address] bedtime. Medical Branch pravastatin 2021-03 Yes [id number] 40mg Take 1 [facility] 40 mg 1-11 tablet by ity of tablet 00:00: mouth at [place] [address] bedtime. Medical Branch pravastatin 2021-03 Yes [id number] 40mg Take 1 [facility] 40 mg 1-11 tablet by ity of tablet 00:00: mouth at [place] [address] bedtime. Medical Branch pravastatin 2021-03 Yes [id number] 40mg Take 1 [facility] 40 mg 1-11 tablet by ity of tablet 00:00: mouth at [place] [address] bedtime. Medical Branch pravastatin 2021-03 Yes [id number] 40mg Take 1 [facility] 40 mg 1-11 tablet by ity of tablet 00:00: mouth at [place] 00 bedtime. Medical Branch pravastatin 2021-03 Yes [id number] 40mg Take 1 [facility] 40 mg 1-11 tablet by ity of tablet 00:00: mouth at [place] [address] bedtime. Medical Branch pravastatin 2021-03 Yes [id number] 40mg Take 1 [facility] 40 mg 1-11 tablet by ity of tablet 00:00: mouth at [place] 00 bedtime. Medical Branch pravastatin 2021-03 Yes [id number] 40mg Take 1 [facility] 40 mg 1-11 tablet by ity of tablet 00:00: mouth at [place] [address] bedtime. Medical Branch pravastatin 2021-03 Yes [id number] 40mg Take 1 [facility] 40 mg 1-11 tablet by ity of tablet 00:00: mouth at [place] [address] bedtime. Medical Branch pravastatin 2021-03 Yes [id number] 40mg Take 1 [facility] 40 mg 1-11 tablet by ity of tablet 00:00: mouth at [place] [address] bedtime. Medical Branch pravastatin 2021-03 Yes [id number] 40mg Take 1 [facility] 40 mg 1-11 tablet by ity of tablet 00:00: mouth at [place] [address] bedtime. Medical Branch pravastatin 2021-03 Yes [id number] 40mg Take 1 [facility] 40 mg 1-11 tablet by ity of tablet 00:00: mouth at [place] [address] bedtime. Medical Branch pravastatin 2021-03 Yes [id number] 40mg Take 1 [facility] 40 mg 1-11 tablet by ity of tablet 00:00: mouth at [place] [address] bedtime. Medical Branch pravastatin 2021-03 Yes [id number] 40mg Take 1 [facility] 40 mg 1-11 tablet by ity of tablet 00:00: mouth at [place] [address] bedtime. Medical Branch pravastatin 2021-03 Yes [id number] 40mg Take 1 [facility] 40 mg 1-11 tablet by ity of tablet 00:00: mouth at [place] [address] bedtime. Medical Branch pravastatin 2021-03 Yes [id number] 40mg Take 1 [facility] 40 mg 1-11 tablet by ity of tablet 00:00: mouth at [place] [address] bedtime. Medical Branch pravastatin 2021-03 Yes [id number] 40mg Take 1 [facility] 40 mg 1-11 tablet by ity of tablet 00:00: mouth at [place] [address] bedtime. Medical Branch pravastatin 2021-03 Yes [id number] 40mg Take 1 [facility] 40 mg 1-11 tablet by ity of tablet 00:00: mouth at [place] [address] bedtime. Medical Branch pravastatin 2021-03 Yes [id number] 40mg Take 1 [facility] 40 mg 1-11 tablet by ity of tablet 00:00: mouth at [place] [address] bedtime. Medical Branch pravastatin 2021-03 Yes [id number] 40mg Take 1 [facility] 40 mg 1-11 tablet by ity of tablet 00:00: mouth at [place] [address] bedtime. Medical Branch pravastatin 2021-03 Yes [id number] 40mg Take 1 [facility] 40 mg 1-11 tablet by ity of tablet 00:00: mouth at [place] [address] bedtime. Medical Branch pravastatin 2021-03 Yes [id number] 40mg Take 1 [facility] 40 mg 1-11 tablet by ity of tablet 00:00: mouth at [place] [address] bedtime. Medical Branch pravastatin 2021-03 Yes [id number] 40mg Take 1 [facility] 40 mg 1-11 tablet by ity of tablet 00:00: mouth at [place] [address] bedtime. Medical Branch pravastatin 2021-03 Yes [id number] 40mg Take 1 [facility] 40 mg 1-11 tablet by [facility]y of tablet 00:00: mouth at [place] [address] bedtime. Medical Branch pravastatin 2021-03 Yes [id number] 40mg Take 1 [facility] 40 mg 1-11 tablet by ity of tablet 00:00: mouth at [place] [address] bedtime. Medical Branch pravastatin 2021-03 Yes [id number] 40mg Take 1 [facility] 40 mg 1-11 tablet by ity of tablet 00:00: mouth at [place] [address] bedtime. Medical Branch pravastatin 2021-03 Yes [id number] 40mg Take 1 [facility] 40 mg 1-11 tablet by ity of tablet 00:00: mouth at [place] [address] bedtime. Medical Branch pravastatin 2021-03 Yes [id number] 40mg Take 1 [facility] 40 mg 1-11 tablet by ity of tablet 00:00: mouth at [place] [address] bedtime. Medical Branch pravastatin 2021-03 Yes [id number] 40mg Take 1 [facility] 40 mg 1-11 tablet by ity of tablet 00:00: mouth at [place] [address] bedtime. Medical Branch pravastatin 2021-03 Yes [id number] 40mg Take 1 [facility] 40 mg 1-11 tablet by ity of tablet 00:00: mouth at [place] 00 bedtime. Medical Branch pravastatin 2021-03 Yes [id number] 40mg Take 1 [facility] 40 mg 1-11 tablet by ity of tablet 00:00: mouth at [place] [address] bedtime. Medical Branch pravastatin 2021-03 Yes [id number] 40mg Take 1 [facility] 40 mg 1-11 tablet by ity of tablet 00:00: mouth at [place] 00 bedtime. Medical Branch pravastatin 2021-03 Yes [id number] 40mg Take 1 [facility] 40 mg 1-11 tablet by ity of tablet 00:00: mouth at [place] [address] bedtime. Medical Branch pravastatin 2021-03 Yes [id number] 40mg Take 1 [facility] 40 mg 1-11 tablet by ity of tablet 00:00: mouth at [place] [address] bedtime. Medical Branch pravastatin 2021-03 Yes [id number] 40mg Take 1 [facility] 40 mg 1-11 tablet by ity of tablet 00:00: mouth at [place] [address] bedtime. Medical Branch pravastatin 2021-03 Yes [id number] 40mg Take 1 [facility] 40 mg 1-11 tablet by ity of tablet 00:00: mouth at [place] [address] bedtime. Medical Branch pravastatin 2021-03 Yes [id number] 40mg Take 1 [facility] 40 mg 1-11 tablet by ity of tablet 00:00: mouth at [place] [address] bedtime. Medical Branch pravastatin 2021-03 Yes [id number] 40mg Take 1 [facility] 40 mg 1-11 tablet by ity of tablet 00:00: mouth at [place] [address] bedtime. Medical Branch pravastatin 2021-03 Yes [id number] 40mg Take 1 [facility] 40 mg 1-11 tablet by ity of tablet 00:00: mouth at [place] [address] bedtime. Medical Branch pravastatin 2021-03 Yes [id number] 40mg Take 1 [facility] 40 mg 1-11 tablet by ity of tablet 00:00: mouth at [place] [address] bedtime. Medical Branch pravastatin 2021-03 Yes [id number] 40mg Take 1 [facility] 40 mg 1-11 tablet by ity of tablet 00:00: mouth at [place] [address] bedtime. Medical Branch pravastatin 2021-03 Yes [id number] 40mg Take 1 [facility] 40 mg 1-11 tablet by ity of tablet 00:00: mouth at [place] [address] bedtime. Medical Branch pravastatin 2021-03 Yes [id number] 40mg Take 1 [facility] 40 mg 1-11 tablet by ity of tablet 00:00: mouth at [place] [address] bedtime. Medical Branch pravastatin 2021-03 Yes [id number] 40mg Take 1 [facility] 40 mg 1-11 tablet by [facility]y of tablet 00:00: mouth at [place] [address] bedtime. Medical Branch pravastatin 2021-03 Yes [id number] 40mg Take 1 [facility] 40 mg 1-11 tablet by [facility]y of tablet 00:00: mouth at [place] [address] bedtime. Medical Branch pravastatin 2021-03 Yes [id number] 40mg Take 1 [facility] 40 mg 1-11 tablet by ity of tablet 00:00: mouth at [place] [address] bedtime. Medical Branch pravastatin 2021-03 Yes [id number] 40mg Take 1 [facility] 40 mg 1-11 tablet by ity of tablet 00:00: mouth at [place] [address] bedtime. Medical Branch pravastatin 2021-03 Yes [id number] 40mg Take 1 [facility] 40 mg 1-11 tablet by ity of tablet 00:00: mouth at [place] [address] bedtime. Medical Branch pravastatin 2021-03 Yes [id number] 40mg Take 1 [facility] 40 mg 1-11 tablet by ity of tablet 00:00: mouth at [place] [address] bedtime. Medical Branch pravastatin 2021-03 Yes [id number] 40mg Take 1 [facility] 40 mg 1-11 tablet by [facility]y of tablet 00:00: mouth at [place] [address] bedtime. Medical Branch pravastatin 2021-03 Yes [id number] 40mg Take 1 [facility] 40 mg 1-11 tablet by [facility]y of tablet 00:00: mouth at [place] [address] bedtime. Medical Branch pravastatin 2021-03 Yes [id number] 40mg Take 1 [facility] 40 mg 1-11 tablet by [facility]y of tablet 00:00: mouth at [place] [address] bedtime. Medical Branch pravastatin 2021-03 Yes [id number] 40mg Take 1 [facility] 40 mg 1-11 tablet by ity of tablet 00:00: mouth at [place] [address] bedtime. Medical Branch pravastatin 2021-03 Yes [id number] 40mg Take 1 [facility] 40 mg 1-11 tablet by [facility]y of tablet 00:00: mouth at [place] [address] bedtime. Medical Branch pravastatin 2021-03 Yes [id number] 40mg Take 1 [facility] 40 mg 1-11 tablet by [facility]y of tablet 00:00: mouth at [place] 00 bedtime. Medical Branch pravastatin 2021-03 Yes [id number] 40mg Take 1 [facility] 40 mg 1-11 tablet by [facility]y of tablet 00:00: mouth at [place] [address] bedtime. Medical Branch pravastatin 2021-03 Yes [id number] 40mg Take 1 [facility] 40 mg 1-11 tablet by [facility]y of tablet 00:00: mouth at [place] 00 bedtime. Medical Branch pravastatin 2021-03 Yes [id number] 40mg Take 1 [facility] 40 mg 1-11 tablet by [facility]y of tablet 00:00: mouth at [place] [address] bedtime. Medical Branch pravastatin 2021-03 Yes [id number] 40mg Take 1 [facility] 40 mg 1-11 tablet by [facility]y of tablet 00:00: mouth at [place] [address] bedtime. Medical Branch pravastatin 2021-03 Yes [id number] 40mg Take 1 [facility] 40 mg 1-11 tablet by [facility]y of tablet 00:00: mouth at [place] [address] bedtime. Medical Branch pravastatin 2021-03 Yes [id number] 40mg Take 1 [facility] 40 mg 1-11 tablet by [facility]y of tablet 00:00: mouth at [place] [address] bedtime. Medical Branch pravastatin 2021-03 Yes [id number] 40mg Take 1 [facility] 40 mg 1-11 tablet by [facility]y of tablet 00:00: mouth at [place] [address] bedtime. Medical Branch pravastatin 2021-03 Yes [id number] 40mg Take 1 [facility] 40 mg 1-11 tablet by [facility]y of tablet 00:00: mouth at [place] [address] bedtime. Medical Branch pravastatin 2021-03 Yes [id number] 40mg Take 1 [facility] 40 mg 1-11 tablet by [facility]y of tablet 00:00: mouth at [place] [address] bedtime. [facility] Branch pravastatin 2021-03 Yes [id number] 40mg Take 1 [facility] 40 mg 1-11 tablet by [facility] tablet 00:00: mouth at [place] [place] [address] bedtime. [facility] pravastatin 2021-03 Yes [id number] 40mg Take 1 [facility] 40 mg 1-11 tablet by [facility] tablet 00:00: mouth at [place] [address] bedtime. [facility] pravastatin 2021-03 Yes [id number] 40mg Take 1 [facility] 40 mg 1-11 tablet by [facility] of tablet 00:00: mouth at [place] [address] bedtime. [facility] pravastatin 2021-03 Yes [id number] 40mg Take 1 [facility] 40 mg 1-11 tablet by [facility] of tablet 00:00: mouth at [place] [address] bedtime. [facility] pravastatin 2021-03 Yes [id number] 40mg Take 1 [facility] 40 mg 1-11 tablet by [facility] of tablet 00:00: mouth at [place] [address] bedtime. [facility] pravastatin 2021-03 Yes [id number] 40mg Take 1 [facility] 40 mg 1-11 tablet by [facility] of tablet 00:00: mouth at [place] [address] bedtime. [facility] pravastatin 2021-03 Yes [id number] 40mg Take 1 [facility] 40 mg 1-11 tablet by [facility] of tablet 00:00: mouth at [place] [address] bedtime. [facility] pravastatin 2021-03 Yes [id number] 40mg Take 1 [facility] 40 mg 1-11 tablet by [facility] of tablet 00:00: mouth at [place] [address] bedtime. [facility] pravastatin 2021-03 Yes [id number] 40mg Take 1 [facility] 40 mg 1-11 tablet by [facility] of tablet 00:00: mouth at [place] [address] bedtime. [facility] pravastatin 2021-03 Yes [id number] 40mg Take 1 [facility] 40 mg 1-11 tablet by [facility] of tablet 00:00: mouth at [place] [address] bedtime. [facility] pravastatin 2021-03 Yes [id number] 40mg Take 1 [facility] 40 mg 1-11 tablet by [facility] of tablet 00:00: mouth at [place] [address] bedtime. [facility] pravastatin 2021-03 Yes [id number] 40mg Take 1 [facility] 40 mg 1-11 tablet by [facility] of tablet 00:00: mouth at [place] [address] bedtime. [facility] pravastatin 2021-03 Yes [id number] 40mg Take 1 [facility] 40 mg 1-11 tablet by [facility] of tablet 00:00: mouth at [place] [address] bedtime. [facility] pravastatin 2021-03 Yes [id number] 40mg Take 1 [facility] 40 mg 1-11 tablet by [facility] of tablet 00:00: mouth at [place] [address] bedtime. [facility] pravastatin 2021-03 Yes [id number] 40mg Take 1 [facility] 40 mg 1-11 tablet by [facility] of tablet 00:00: mouth at [place] [address] bedtime. [facility] pravastatin 2021-03 Yes [id number] 40mg Take 1 [facility] 40 mg 1-11 tablet by [facility] of tablet 00:00: mouth at [place] 00 bedtime. [facility] pravastatin 2021-03 Yes [id number] 40mg Take 1 [facility] 40 mg 1-11 tablet by [facility] of tablet 00:00: mouth at [place] [address] bedtime. [facility] pravastatin 2021-03 Yes [id number] 40mg Take 1 [facility] 40 mg 1-11 tablet by [facility] of tablet 00:00: mouth at [place] 00 bedtime. [facility] pravastatin 2021-03 Yes [id number] 40mg Take 1 [facility] 40 mg 1-11 tablet by [facility] of tablet 00:00: mouth at [place] [address] bedtime. [facility] pravastatin 2021-03 Yes [id number] 40mg Take 1 [facility] 40 mg 1-11 tablet by [facility] of tablet 00:00: mouth at [place] [address] bedtime. [facility] pravastatin 2021-03 Yes [id number] 40mg Take 1 [facility] 40 mg 1-11 tablet by [facility] of tablet 00:00: mouth at [place] [address] bedtime. [facility] pravastatin 2021-03 Yes [id number] 40mg Take 1 [facility] 40 mg 1-11 tablet by [facility] of tablet 00:00: mouth at [place] [address] bedtime. [facility] pravastatin 2021-03 Yes [id number] 40mg Take 1 [facility] 40 mg 1-11 tablet by [facility] of tablet 00:00: mouth at [place] [address] bedtime. [facility] pravastatin 2021-03 Yes [id number] 40mg Take 1 [facility] 40 mg 1-11 tablet by [facility] of tablet 00:00: mouth at [place] [address] bedtime. [facility] pravastatin 2021-03 Yes [id number] 40mg Take 1 [facility] 40 mg 1-11 tablet by [facility] of tablet 00:00: mouth at [place] [address] bedtime. [facility] pravastatin 2021-03 Yes [id number] 40mg Take 1 [facility] 40 mg 1-11 tablet by [facility] of tablet 00:00: mouth at [place] [address] bedtime. [facility] pravastatin 2021-03 Yes [id number] 40mg Take 1 [facility] 40 mg 1-11 tablet by [facility] of tablet 00:00: mouth at [place] [address] bedtime. [facility] pravastatin 2021-03 Yes [id number] 40mg Take 1 [facility] 40 mg 1-11 tablet by [facility] of tablet 00:00: mouth at [place] [address] bedtime. [facility] pravastatin 2021-03 Yes [id number] 40mg Take 1 [facility] 40 mg 1-11 tablet by [facility] of tablet 00:00: mouth at [place] [address] bedtime. [facility] pravastatin 2021-03 Yes [id number] 40mg Take 1 [facility] 40 mg 1-11 tablet by [facility] of tablet 00:00: mouth at [place] [address] bedtime. [facility] pravastatin 2021-03 Yes [id number] 40mg Take 1 [facility] 40 mg 1-11 tablet by [facility] of tablet 00:00: mouth at [place] [address] bedtime. [facility] pravastatin 2021-03 Yes [id number] 40mg Take 1 [facility] 40 mg 1-11 tablet by [facility] of tablet 00:00: mouth at [place] [address] bedtime. [facility] pravastatin 2021-03 Yes [id number] 40mg Take 1 [facility] 40 mg 1-11 tablet by [facility] of tablet 00:00: mouth at [place] [address] bedtime. [facility] pravastatin 2021-03 Yes [id number] 40mg Take 1 [facility] 40 mg 1-11 tablet by [facility] of tablet 00:00: mouth at [place] [address] bedtime. [facility] pravastatin 2021-03 Yes [id number] 40mg Take 1 [facility] 40 mg 1-11 tablet by [facility] of tablet 00:00: mouth at [place] [address] bedtime. [facility] pravastatin 2021-03 Yes [id number] 40mg Take 1 [facility] 40 mg 1-11 tablet by [facility] of tablet 00:00: mouth at [place] [address] bedtime. [facility] pravastatin 2021-03 Yes [id number] 40mg Take 1 [facility] 40 mg 1-11 tablet by [facility] of tablet 00:00: mouth at [place] [address] bedtime. [facility] pravastatin 2021-03 Yes [id number] 40mg Take 1 [facility] 40 mg 1-11 tablet by [facility] of tablet 00:00: mouth at [place] [address] bedtime. [facility] pravastatin 2021-03 Yes [id number] 40mg Take 1 [facility] 40 mg 1-11 tablet by [facility] of tablet 00:00: mouth at [place] [address] bedtime. [facility] pravastatin 2021-03 Yes [id number] 40mg Take 1 [facility] 40 mg 1-11 tablet by [facility] of tablet 00:00: mouth at [place] [address] bedtime. [facility] pravastatin 2021-03 Yes [id number] 40mg Take 1 [facility] 40 mg 1-11 tablet by [facility] of tablet 00:00: mouth at [place] 00 bedtime. [facility] pravastatin 2021-03 Yes [id number] 40mg Take 1 [facility] 40 mg 1-11 tablet by [facility] of tablet 00:00: mouth at [place] 00 bedtime. [facility] pravastatin 2021-03 Yes [id number] 40mg Take 1 [facility] 40 mg 1-11 tablet by [facility] of tablet 00:00: mouth at [place] 00 bedtime. [facility] pravastatin 2021-03 Yes [id number] 40mg Take 1 [facility] 40 mg 1-11 tablet by [facility] of tablet 00:00: mouth at [place] 00 bedtime. [facility] pravastatin 2021-03 Yes [id number] 40mg Take 1 [facility] 40 mg 1-11 tablet by [facility] of tablet 00:00: mouth at [place] [address] bedtime. [facility] pravastatin 2021-03 Yes [id number] 40mg Take 1 [facility] 40 mg 1-11 tablet by [facility] of tablet 00:00: mouth at [place] [address] bedtime. [facility] pravastatin 2021-03 Yes [id number] 40mg Take 1 [facility] 40 mg 1-11 tablet by [facility] of tablet 00:00: mouth at [place] [address] bedtime. [facility] pravastatin 2021-03 Yes [id number] 40mg Take 1 [facility] 40 mg 1-11 tablet by [facility] of tablet 00:00: mouth at [place] [address] bedtime. [facility] pravastatin 2021-03 Yes [id number] 40mg Take 1 [facility] 40 mg 1-11 tablet by [facility] of tablet 00:00: mouth at [place] [address] bedtime. [facility] pravastatin 2021-03 Yes [id number] 40mg Take 1 [facility] 40 mg 1-11 tablet by [facility] of tablet 00:00: mouth at [place] [address] bedtime. [facility] doxepin 25 2021-03 Yes [id number] 25mg Take 1 [facility] mg capsule 1-09 capsule by [facility] of 00:00: mouth at [place] [address] bedtime. [facility] doxepin 25 2021-03 Yes [id number] 25mg Take 1 [facility] mg capsule 1-09 capsule by [facility] of 00:00: mouth at [place] [address] bedtime. [facility] doxepin 25 2021-03 Yes [id number] 25mg Take 1 [facility] mg capsule 1-09 capsule by [facility] of 00:00: mouth at [place] 00 bedtime. [facility] doxepin 2021-03 Yes [id number] 25mg Take 1 [facility] mg capsule 1-09 capsule by [facility] of 00:00: mouth at [place] 00 bedtime. [facility] doxepin 25 2021-03 Yes [id number] 25mg Take 1 [facility] mg capsule 1-09 capsule by [facility] of 00:00: mouth at [place] 00 bedtime. [facility] doxepin 2021-03 Yes [id number] 25mg Take 1 [facility] mg capsule 1-09 capsule by [facility] of 00:00: mouth at [place] 00 bedtime. [facility] doxepin 2021-03 Yes [id number] 25mg Take 1 [facility] mg capsule 1-09 capsule by [facility] of 00:00: mouth at [place] 00 bedtime. [facility] doxepin 2021-03 Yes [id number] 25mg Take 1 [facility] mg capsule 1-09 capsule by [facility] of 00:00: mouth at [place] 00 bedtime. [facility] doxepin 2021-03 Yes [id number] 25mg Take 1 [facility] mg capsule 1-09 capsule by [facility] of 00:00: mouth at [place] [address] bedtime. [facility] doxepin 2021-03 Yes [id number] 25mg Take 1 [facility] mg capsule 1-09 capsule by [facility] of 00:00: mouth at [place] 00 bedtime. [facility] doxepin 25 2021-03 Yes [id number] 25mg Take 1 [facility] mg capsule 1-09 capsule by [facility] of 00:00: mouth at [place] 00 bedtime. [facility] doxepin 25 [id number] 25mg Take 1 [facility] mg capsule 1-09 -12 capsule by it y of 00:00: 00:00 mouth at [place] 00 :00 bedtime. [facility] bumetanide 2021-03 Yes 1mg Take 1 mg Un renetta 1 mg tablet -07 by mouth ity of 09:58: in the [place] [address] morning. Medical Indication Branch s: reports kidney Dr Rx, ~2 mths ago bumetanide 2021-03 Yes 1mg Take 1 mg Un renetta 1 mg tablet -07 by mouth ity of 09:58: in the [place] [address] morning. Medical Indication Branch s: reports kidney Dr Rx, ~2 mths ago bumetanide 2021-03 Yes 1mg Take 1 mg Un renetta 1 mg tablet 1-07 by mouth ity of 09:58: in the [place] [address] morning. Medical Indication Branch s: reports kidney Dr Rx, ~2 mths ago bumetanide 2021-03 Yes 1mg Take 1 mg Un renetta 1 mg tablet 1-07 by mouth ity of 09:58: in the [place] [address] morning. Medical Indication Branch s: reports kidney Dr Rx, ~2 mths ago bumetanide 2021-03 Yes 1mg Take 1 mg Un renetta 1 mg tablet 1-07 by mouth ity of 09:58: in the [place] [address] morning. Medical Indication Branch s: reports kidney Dr Rx, ~2 mths ago bumetanide 2021-03 Yes 1mg Take 1 mg Un renetta 1 mg tablet 1-07 by mouth ity of 09:58: in the [place] [address] morning. Medical Indication Branch s: reports kidney Dr Rx, ~2 mths ago bumetanide 2021-03 Yes 1mg Take 1 mg Un renetta 1 mg tablet 1-07 by mouth ity of 09:58: in the [place] [address] morning. Medical Indication Branch s: reports kidney Dr Rx, ~2 mths ago bumetanide 2021-03 Yes 1mg Take 1 mg Un renetta 1 mg tablet 1-07 by mouth ity of 09:58: in the [place] [address] morning. Medical Indication Branch s: reports kidney Dr Rx, ~2 mths ago bumetanide 2021-03 Yes 1mg Take 1 mg Un renetta 1 mg tablet 1-07 by mouth ity of 09:58: in the [place] [address] morning. Medical Indication Branch s: reports kidney Dr Rx, ~2 mths ago bumetanide 2021-03 Yes 1mg Take 1 mg Un renetta 1 mg tablet 1-07 by mouth ity of 09:58: in the [place] [address] morning. Medical Indication Branch s: reports kidney Dr Rx, ~2 mths ago bumetanide 2021-03 Yes 1mg Take 1 mg Un renetta 1 mg tablet 1-07 by mouth ity of 09:58: in the [place] [address] morning. Medical Indication Branch s: reports kidney Dr Rx, ~2 mths ago bumetanide 2021-03 Yes 1mg Take 1 mg Un renetta 1 mg tablet 1-07 by mouth ity of 09:58: in the [place] [address] morning. Medical Indication Branch s: reports kidney Dr Rx, ~2 mths ago bumetanide 2021-03 Yes 1mg Take 1 mg Un renetta 1 mg tablet 1-07 by mouth ity of 09:58: in the [place] [address] morning. Medical Indication Branch s: reports kidney Dr Rx, ~2 mths ago bumetanide 2021-03 Yes 1mg Take 1 mg Un renetta 1 mg tablet 1-07 by mouth ity of 09:58: in the [place] [address] morning. Medical Indication Branch s: reports kidney Dr Rx, ~2 mths ago bumetanide 2021-03 Yes 1mg Take 1 mg Un renetta 1 mg tablet 1-07 by mouth ity of 09:58: in the [place] [address] morning. Medical Indication Branch s: reports kidney Dr Rx, ~2 mths ago bumetanide 2021-03 Yes 1mg Take 1 mg Un renetta 1 mg tablet 1-07 by mouth ity of 09:58: in the [place] [address] morning. Medical Indication Branch s: reports kidney Dr Rx, ~2 mths ago bumetanide 2021-03 Yes 1mg Take 1 mg Un renetta 1 mg tablet 1-07 by mouth ity of 09:58: in the [place] [address] morning. Medical Indication Branch s: reports kidney Dr Rx, ~2 mths ago bumetanide 2021-03 Yes 1mg Take 1 mg Un renetta 1 mg tablet 1-07 by mouth ity of 09:58: in the [place] [address] morning. Medical Indication Branch s: reports kidney Dr Rx, ~2 mths ago bumetanide 2021-03 Yes 1mg Take 1 mg Un renetta 1 mg tablet 1-07 by mouth ity of 09:58: in the [place] [address] morning. Medical Indication Branch s: reports kidney Dr Rx, ~2 mths ago baclofen 2021-03 Yes [id number] 10mg Take 1 [facility] mg tablet 1-02 tablet by ity o f 00:00: mouth 3 (three) Medical times Branch daily as needed for Pain (scale 7-10). baclofen 2021-03 Yes [id number] 10mg Take 1 [facility] mg tablet 1-02 tablet by ity o f 00:00: mouth 3 [place] 00 (three) Medical times Branch daily as needed for Pain (scale 7-10). benzonatate 2021-03 Yes [id number] 100mg Take 1 [facility] (TESSALON 1-02 capsule by ity of PERLES) 100 00:00: mouth [place] mg capsule 00 every 8 Medica l (eight) Branch hours as needed for Cough. baclofen 2021-03 Yes [id number] 10mg Take 1 [facility] mg tablet 1-02 tablet by ity o f 00:00: mouth 3 [place] 00 (three) Medical times Branch daily as needed for Pain (scale 7-10). benzonatate 2021-03 Yes [id number] 100mg Take 1 [facility] (TESSALON 1-02 capsule by ity of PERLES) 100 00:00: mouth [place] mg capsule 00 every 8 Medica l (eight) Branch hours as needed for Cough. baclofen 2021-03 Yes [id number] 10mg Take 1 [facility] mg tablet 1-02 tablet by ity o f 00:00: mouth 3 [place] 00 (three) Medical times Branch daily as needed for Pain (scale 7-10). benzonatate 2021-03 Yes [id number] 100mg Take 1 [facility] (TESSALON 1-02 capsule by ity of PERLES) 100 00:00: mouth [place] mg capsule 00 every 8 Medica l (eight) Branch hours as needed for Cough. baclofen 2021-03 Yes [id number] 10mg Take 1 [facility] mg tablet 1-02 tablet by ity o f 00:00: mouth 3 [place] 00 (three) Medical times Branch daily as needed for Pain (scale 7-10). benzonatate 2021-03 Yes [id number] 100mg Take 1 [facility] (TESSALON 1-02 capsule by ity of PERLES) 100 00:00: mouth [place] mg capsule 00 every 8 Medica l (eight) Branch hours as needed for Cough. baclofen 2021-03 Yes [id number] 10mg Take 1 [facility] mg tablet 1-02 tablet by ity o f 00:00: mouth 3 [place] 00 (three) Medical times Branch daily as needed for Pain (scale 7-10). benzonatate 2021-03 Yes [id number] 100mg Take 1 [facility] (TESSALON 1-02 capsule by ity of PERLES) 100 00:00: mouth [place] mg capsule 00 every 8 Medica l (eight) Branch hours as needed for Cough. baclofen 2021-03 Yes [id number] 10mg Take 1 [facility] mg tablet 1-02 tablet by ity o f 00:00: mouth 3 [place] 00 (three) Medical times Branch daily as needed for Pain (scale 7-10). benzonatate 2021-03 Yes [id number] 100mg Take 1 [facility] (TESSALON 1-02 capsule by [facility] of [employer]) 100 00:00: mouth [place] mg capsule 00 every 8 Medica l (eight) Branch hours as needed for Cough. baclofen 2021-03 Yes [id number] 10mg Take 1 [facility] mg tablet 1-02 tablet by ity o f 00:00: mouth 3 [place] 00 (three) Medical times Branch daily as needed for Pain (scale 7-10). benzonatate 2021-03 Yes [id number] 100mg Take 1 [facility] (TESSALON 1-02 capsule by [employer]) 100 00:00: mouth [place] mg capsule 00 every 8 Medica l (eight) Branch hours as needed for Cough. baclofen 2021-03 Yes [id number] 10mg Take 1 [facility] mg tablet 1-02 tablet by ity o f 00:00: mouth 3 [place] 00 (three) Medical times Branch daily as needed for Pain (scale 7-10). baclofen 2021-03 Yes [id number] 10mg Take 1 [facility] mg tablet 1-02 tablet by ity o f 00:00: mouth 3 [place] 00 (three) Medical times Branch daily as needed for Pain (scale 7-10). baclofen 2021-03 Yes [id number] 10mg Take 1 [facility] mg tablet 1-02 tablet by ity o f 00:00: mouth 3 [place] 00 (three) Medical times Branch daily as needed for Pain (scale 7-10). baclofen 2021-03 Yes [id number] 10mg Take 1 [facility] mg tablet 1-02 tablet by ity o f 00:00: mouth 3 [place] 00 (three) Medical times Branch daily as needed for Pain (scale 7-10). baclofen 2021-03 Yes [id number] 10mg Take 1 [facility] mg tablet 1-02 tablet by ity o f 00:00: mouth 3 [place] 00 (three) Medical times Branch daily as needed for Pain (scale 7-10). baclofen 2021-03 Yes [id number] 10mg Take 1 [facility] mg tablet 1-02 tablet by ity o f 00:00: mouth 3 [place] 00 (three) Medical times Branch daily as needed for Pain (scale 7-10). baclofen 2021-03 Yes [id number] 10mg Take 1 [facility] mg tablet 1-02 tablet by ity o f 00:00: mouth 3 [place] 00 (three) Medical times Branch daily as needed for Pain (scale 7-10). baclofen 2021-03 Yes [id number] 10mg Take 1 [facility] mg tablet 1-02 tablet by ity o f 00:00: mouth 3 [place] 00 (three) Medical times Branch daily as needed for Pain (scale 7-10). baclofen 2021-03 Yes [id number] 10mg Take 1 [facility] mg tablet 1-02 tablet by ity o f 00:00: mouth 3 [place] 00 (three) Medical times Branch daily as needed for Pain (scale 7-10). baclofen 2021-03 Yes [id number] 10mg Take 1 [facility] mg tablet 1-02 tablet by ity o f 00:00: mouth 3 [place] 00 (three) Medical times Branch daily as needed for Pain (scale 7-10). baclofen 2021-03 Yes [id number] 10mg Take 1 [facility] mg tablet 1-02 tablet by ity o f 00:00: mouth 3 00 (three) Medical times Branch daily as needed for Pain (scale 7-10). baclofen 2021-03 Yes [id number] 10mg Take 1 [facility] mg tablet 1-02 tablet by ity o f 00:00: mouth 3 00 (three) Medical times Branch daily as needed for Pain (scale 7-10). baclofen 2021-03 Yes [id number] 10mg Take 1 [facility] mg tablet 1-02 tablet by ity o f 00:00: mouth 3 00 (three) Medical times Branch daily as needed for Pain (scale 7-10). baclofen 2021-03 Yes [id number] 10mg Take 1 [facility] mg tablet 1-02 tablet by ity o f 00:00: mouth 3 [place] 00 (three) Medical times Branch daily as needed for Pain (scale 7-10). baclofen 2021-03 Yes [id number] 10mg Take 1 [facility] mg tablet 1-02 tablet by ity o f 00:00: mouth 3 (three) Medical times Branch daily as needed for Pain (scale 7-10). baclofen 2021-03 Yes [id number] 10mg Take 1 [facility] mg tablet 1-02 tablet by ity o f 00:00: mouth 3 (three) Medical times Branch daily as needed for Pain (scale 7-10). baclofen 2021-03 Yes [id number] 10mg Take 1 [facility] mg tablet 1-02 tablet by ity o f 00:00: mouth (three) Medical times Branch daily as needed for Pain (scale 7-10). baclofen 2021-03 Yes [id number] 10mg Take 1 [facility] mg tablet 1-02 tablet by ity o f 00:00: mouth (three) Medical times Branch daily as needed for Pain (scale 7-10). baclofen 2021-03 Yes [id number] 10mg Take 1 [facility] mg tablet 1-02 tablet by ity o f 00:00: mouth (three) Medical times Branch daily as needed for Pain (scale 7-10). baclofen 2021-03 Yes [id number] 10mg Take 1 [facility] mg tablet 1-02 tablet by ity o f 00:00: mouth (three) Medical times Branch daily as needed for Pain (scale 7-10). baclofen 2021-03 Yes [id number] 10mg Take 1 [facility] mg tablet 1-02 tablet by ity o f 00:00: mouth 3 (three) Medical times Branch daily as needed for Pain (scale 7-10). baclofen 2021-03 Yes [id number] 10mg Take 1 [facility] mg tablet 1-02 tablet by ity o f 00:00: mouth (three) Medical times Branch daily as needed for Pain (scale 7-10). baclofen 2021-03 Yes [id number] 10mg Take 1 [facility] mg tablet 1-02 tablet by ity o f 00:00: mouth 3 (three) Medical times Branch daily as needed for Pain (scale 7-10). baclofen 2021-03 Yes [id number] 10mg Take 1 [facility] mg tablet 1-02 tablet by ity o f 00:00: mouth 3 (three) Medical times Branch daily as needed for Pain (scale 7-10). baclofen 2021-03 Yes [id number] 10mg Take 1 [facility] mg tablet 1-02 tablet by ity o f 00:00: mouth 3 [place] 00 (three) Medical times Branch daily as needed for Pain (scale 7-10). baclofen 2021-03 Yes [id number] 10mg Take 1 [facility] mg tablet 1-02 tablet by ity o f 00:00: mouth 3 [place] 00 (three) Medical times Branch daily as needed for Pain (scale 7-10). baclofen 2021-03 Yes [id number] 10mg Take 1 [facility] mg tablet 1-02 tablet by ity o f 00:00: mouth 3 [place] 00 (three) Medical times Branch daily as needed for Pain (scale 7-10). baclofen 2021-03 Yes [id number] 10mg Take 1 [facility] mg tablet 1-02 tablet by ity o f 00:00: mouth 3 [place] 00 (three) Medical times Branch daily as needed for Pain (scale 7-10). baclofen 2021-03 Yes [id number] 10mg Take 1 [facility] mg tablet 1-02 tablet by ity o f 00:00: mouth 3 00 (three) Medical times Branch daily as needed for Pain (scale 7-10). baclofen 2021-03 Yes [id number] 10mg Take 1 [facility] mg tablet 1-02 tablet by ity o f 00:00: mouth 3 00 (three) Medical times Branch daily as needed for Pain (scale 7-10). baclofen 2021-03 Yes [id number] 10mg Take 1 [facility] mg tablet 1-02 tablet by ity o f 00:00: mouth 3 00 (three) Medical times Branch daily as needed for Pain (scale 7-10). baclofen 2021-03 Yes [id number] 10mg Take 1 [facility] mg tablet 1-02 tablet by ity o f 00:00: mouth 3 [place] 00 (three) Medical times Branch daily as needed for Pain (scale 7-10). baclofen 2021-03 Yes [id number] 10mg Take 1 [facility] mg tablet 1-02 tablet by ity o f 00:00: mouth 3 [place] 00 (three) Medical times Branch daily as needed for Pain (scale 7-10). baclofen 2021-03 Yes [id number] 10mg Take 1 [facility] mg tablet 1-02 tablet by ity o f 00:00: mouth 3 [place] 00 (three) Medical times Branch daily as needed for Pain (scale 7-10). baclofen 2021-03 Yes [id number] 10mg Take 1 [facility] mg tablet 1-02 tablet by ity o f 00:00: mouth 3 [place] 00 (three) Medical times Branch daily as needed for Pain (scale 7-10). baclofen 2021-03 Yes [id number] 10mg Take 1 [facility] mg tablet 1-02 tablet by ity o f 00:00: mouth 3 [place] 00 (three) Medical times Branch daily as needed for Pain (scale 7-10). baclofen 2021-03 Yes [id number] 10mg Take 1 [facility] mg tablet 1-02 tablet by ity o f 00:00: mouth 3 00 (three) Medical times Branch daily as needed for Pain (scale 7-10). baclofen 2021-03 Yes [id number] 10mg Take 1 [facility] mg tablet 1-02 tablet by ity o f 00:00: mouth 3 00 (three) Medical times Branch daily as needed for Pain (scale 7-10). baclofen 2021-03 Yes [id number] 10mg Take 1 [facility] mg tablet 1-02 tablet by ity o f 00:00: mouth 3 00 (three) Medical times Branch daily as needed for Pain (scale 7-10). baclofen 2021-03 Yes [id number] 10mg Take 1 [facility] mg tablet 1-02 tablet by ity o f 00:00: mouth 3 00 (three) Medical times Branch daily as needed for Pain (scale 7-10). baclofen 2021-03 Yes [id number] 10mg Take 1 [facility] mg tablet 1-02 tablet by ity o f 00:00: mouth 3 00 (three) Medical times Branch daily as needed for Pain (scale 7-10). baclofen 2021-03 No [id number] 10mg Take 1 [facility] mg tablet 1-02 -19 tablet by ity of 00:00: 00:00 mouth 3 [place] 00 :00 (three) Medical times Branch daily as needed for Pain (scale 7-10). baclofen 2021-03- No [id number] 10mg Take 1 [facility] mg tablet 1-02 -19 tablet by ity of 00:00: 00:00 mouth 3 [place] 00 :00 (three) Medical times Branch daily as needed for Pain (scale 7-10). benzonatate 2021-03- No [id number] 100mg Take 1 [facility] (TESSALON 03-05 11-23 capsule by ity of BRAD) 100 [...] 2021- Yes 2745 1{tbl} Take 1 Un ernetta [...] s: acute pain, chronic pain albuterol Yes [id number] 2.5mg Inhale 3 [facility] 2.5 mg /3 9-29 mL every 2 ity of mL (0.083 00:00: (two) [place] %) 00 hours as Medical nebulizer needed for Bran ch solution Shortness of Breath or Wheezing. ipratropium Yes [id number] .5mg Inhale 2.5 [facility] 0.02 % 9-29 mL every 4 ity of nebulizer 00:00: (four) [place] solution 00 hours as Medical needed for Branch Wheezing or Shortness of Breath. arformotero Yes 15ug Use 2 mL Un [...] l solution in the Branch evening. albuterol 0 Yes [id number] 2.5mg Inhale 3 [facility] 2.5 mg /3 9-29 mL every 2 ity of mL (0.083 00:00: (two) [place] %) 00 hours as Medical nebulizer needed for Bran ch solution Shortness of Breath or Wheezing. ipratropium 0 Yes [id number] .5mg Inhale 2.5 [facility] 0.02 % 9-29 [...] in the Branch evening. albuterol 2-0 Yes [id number] 2.5mg Inhale 3 [facility] 2.5 mg /3 9-29 mL every 2 ity of mL (0.083 00:00: (two) [place] %) 00 hours as Medical nebulizer needed for Bran ch solution Shortness of Breath or Wheezing. ipratropium 2021-0 Yes [id number] .5mg Inhale 2.5 [facility] 0.02 % 9-29 [...] in the Branch evening. albuterol 2-0 Yes [id number] 2.5mg Inhale 3 [facility] 2.5 mg /3 9-29 mL every 2 ity of mL (0.083 00:00: (two) [place] %) 00 hours as Medical nebulizer needed for Bran ch solution Shortness of Breath or Wheezing. ipratropium 2-0 Yes [id number] .5mg Inhale 2.5 [facility] 0.02 % 9-29 [...] in the Branch evening. albuterol 2021-0 Yes [id number] 2.5mg Inhale 3 [facility] 2.5 mg /3 9-29 mL every 2 ity of mL (0.083 00:00: (two) [place] %) 00 hours as Medical nebulizer needed for Bran ch solution Shortness of Breath or Wheezing. ipratropium 2021-0 Yes [id number] .5mg Inhale 2.5 [facility] 0.02 % 9-29 [...] in the Branch evening. albuterol 2021-0 Yes [id number] 2.5mg Inhale 3 [facility] 2.5 mg /3 9-29 mL every 2 ity of mL (0.083 00:00: (two) [place] %) 00 hours as Medical nebulizer needed for Bran ch solution Shortness of Breath or Wheezing. ipratropium 2-0 Yes [id number] .5mg Inhale 2.5 [facility] 0.02 % 9-29 [...] in the Branch evening. albuterol 2022-0 Yes [id number] 2.5mg Inhale 3 [facility] 2.5 mg /3 9-29 mL every 2 ity of mL (0.083 00:00: (two) [place] %) 00 hours as Medical nebulizer needed for Bran ch solution Shortness of Breath or Wheezing. ipratropium 2-0 Yes [id number] .5mg Inhale 2.5 [facility] 0.02 % 9-29 [...] in the Branch evening. albuterol 2022-0 Yes [id number] 2.5mg Inhale 3 [facility] 2.5 mg /3 9-29 mL every 2 ity of mL (0.083 00:00: (two) [place] %) 00 hours as Medical nebulizer needed for Bran ch solution Shortness of Breath or Wheezing. ipratropium 2022-0 Yes [id number] .5mg Inhale 2.5 [facility] 0.02 % 9-29 [...] in the Branch evening. albuterol 2-0 Yes [id number] 2.5mg Inhale 3 [facility] 2.5 mg /3 9-29 mL every 2 ity of mL (0.083 00:00: (two) [place] %) 00 hours as Medical nebulizer needed for Bran ch solution Shortness of Breath or Wheezing. ipratropium 2-0 Yes [id number] .5mg Inhale 2.5 [facility] 0.02 % 9-29 [...] in the Branch evening. albuterol 2-0 Yes [id number] 2.5mg Inhale 3 [facility] 2.5 mg /3 9-29 mL every 2 ity of mL (0.083 00:00: (two) [place] %) 00 hours as Medical nebulizer needed for Bran ch solution Shortness of Breath or Wheezing. ipratropium 2-0 Yes [id number] .5mg Inhale 2.5 [facility] 0.02 % 9-29 [...] in the Branch evening. albuterol 2022-0 Yes [id number] 2.5mg Inhale 3 [facility] 2.5 mg /3 9-29 mL every 2 ity of mL (0.083 00:00: (two) [place] %) 00 hours as Medical nebulizer needed for Bran ch solution Shortness of Breath or Wheezing. ipratropium 2022-0 Yes [id number] .5mg Inhale 2.5 [facility] 0.02 % 9-29 [...] in the Branch evening. albuterol 2022-0 Yes [id number] 2.5mg Inhale 3 [facility] 2.5 mg /3 9-29 mL every 2 ity of mL (0.083 00:00: (two) [place] %) 00 hours as Medical nebulizer needed for Bran ch solution Shortness of Breath or Wheezing. ipratropium 2022-0 Yes [id number] .5mg Inhale 2.5 [facility] 0.02 % 9-29 [...] in the Branch evening. albuterol 2022-0 Yes [id number] 2.5mg Inhale 3 [facility] 2.5 mg /3 9-29 mL every 2 ity of mL (0.083 00:00: (two) [place] %) 00 hours as Medical nebulizer needed for Bran ch solution Shortness of Breath or Wheezing. ipratropium 2022-0 Yes [id number] .5mg Inhale 2.5 [facility] 0.02 % 9-29 [...] in the Branch evening. albuterol 2-0 Yes [id number] 2.5mg Inhale 3 [facility] 2.5 mg /3 9-29 mL every 2 ity of mL (0.083 00:00: (two) [place] %) 00 hours as Medical nebulizer needed for Bran ch solution Shortness of Breath or Wheezing. ipratropium 2-0 Yes [id number] .5mg Inhale 2.5 [facility] 0.02 % 9-29 [...] in the Branch evening. albuterol 2022-0 Yes [id number] 2.5mg Inhale 3 [facility] 2.5 mg /3 9-29 mL every 2 ity of mL (0.083 00:00: (two) [place] %) 00 hours as Medical nebulizer needed for Bran ch solution Shortness of Breath or Wheezing. ipratropium 2-0 Yes [id number] .5mg Inhale 2.5 [facility] 0.02 % 9-29 [...] in the Branch evening. albuterol 2021-0 Yes [id number] 2.5mg Inhale 3 [facility] 2.5 mg /3 9-29 mL every 2 ity of mL (0.083 00:00: (two) [place] %) 00 hours as Medical nebulizer needed for Bran ch solution Shortness of Breath or Wheezing. ipratropium 2021-0 Yes [id number] .5mg Inhale 2.5 [facility] 0.02 % 9-29 [...] in the Branch evening. albuterol 2-0 Yes [id number] 2.5mg Inhale 3 [facility] 2.5 mg /3 9-29 mL every 2 ity of mL (0.083 00:00: (two) [place] %) 00 hours as Medical nebulizer needed for Bran ch solution Shortness of Breath or Wheezing. ipratropium 2-0 Yes [id number] .5mg Inhale 2.5 [facility] 0.02 % 9-29 [...] in the Branch evening. albuterol 2021-0 Yes [id number] 2.5mg Inhale 3 [facility] 2.5 mg /3 9-29 mL every 2 ity of mL (0.083 00:00: (two) [place] %) 00 hours as Medical nebulizer needed for Bran ch solution Shortness of Breath or Wheezing. ipratropium 2021-0 Yes [id number] .5mg Inhale 2.5 [facility] 0.02 % 9-29 [...] in the Branch evening. albuterol 2-0 Yes [id number] 2.5mg Inhale 3 [facility] 2.5 mg /3 9-29 mL every 2 ity of mL (0.083 00:00: (two) [place] %) 00 hours as Medical nebulizer needed for Bran ch solution Shortness of Breath or Wheezing. ipratropium 2-0 Yes [id number] .5mg Inhale 2.5 [facility] 0.02 % 9-29 [...] in the Branch evening. albuterol 2021-0 Yes [id number] 2.5mg Inhale 3 [facility] 2.5 mg /3 9-29 mL every 2 ity of mL (0.083 00:00: (two) [place] %) 00 hours as Medical nebulizer needed for Bran ch solution Shortness of Breath or Wheezing. ipratropium 2021-0 Yes [id number] .5mg Inhale 2.5 [facility] 0.02 % 9-29 [...] in the Branch evening. albuterol 2021-0 Yes [id number] 2.5mg Inhale 3 [facility] 2.5 mg /3 9-29 mL every 2 ity of mL (0.083 00:00: (two) [place] %) 00 hours as Medical nebulizer needed for Bran ch solution Shortness of Breath or Wheezing. ipratropium 2-0 Yes [id number] .5mg Inhale 2.5 [facility] 0.02 % 9-29 [...] in the Branch evening. albuterol 2-0 Yes [id number] 2.5mg Inhale 3 [facility] 2.5 mg /3 9-29 mL every 2 ity of mL (0.083 00:00: (two) [place] %) 00 hours as Medical nebulizer needed for Bran ch solution Shortness of Breath or Wheezing. ipratropium 2-0 Yes [id number] .5mg Inhale 2.5 [facility] 0.02 % 9-29 [...] in the Branch evening. albuterol 2-0 Yes [id number] 2.5mg Inhale 3 [facility] 2.5 mg /3 9-29 mL every 2 ity of mL (0.083 00:00: (two) [place] %) 00 hours as Medical nebulizer needed for Bran ch solution Shortness of Breath or Wheezing. ipratropium 2022-0 Yes [id number] .5mg Inhale 2.5 [facility] 0.02 % 9-29 mL every 4 ity of nebulizer 00:00: (four) [place] solution 00 hours as Medical needed for Branch Wheezing or Shortness of Breath. arformotero 2022-0 Yes 15ug Use 2 mL Un rneetta L 15 mcg/2 9-29 as ity of mL 00:00: directed [place] nebulizer 00 in the Medical solution morning Branch and 2 mL in the evening. budesonide 2022-0 Yes .25mg Inhale 2 Un renetta 0.25 mg/2 9-29 mL in the ity o f mL 00:00: morning [place] nebulizer 00 and 2 mL Medica l solution in the Branch evening. albuterol 2-0 Yes [id number] 2.5mg Inhale 3 [facility] 2.5 mg /3 9-29 mL every 2 ity of mL (0.083 00:00: (two) [place] %) 00 hours as Medical nebulizer needed for Bran ch solution Shortness of Breath or Wheezing. ipratropium 2-0 Yes [id number] .5mg Inhale 2.5 [facility] 0.02 % 9-29 [...] in the Branch evening. albuterol 2021-0 Yes [id number] 2.5mg Inhale 3 [facility] 2.5 mg /3 9-29 mL every 2 ity of mL (0.083 00:00: (two) [place] %) 00 hours as Medical nebulizer needed for Bran ch solution Shortness of Breath or Wheezing. ipratropium 2-0 Yes [id number] .5mg Inhale 2.5 [facility] 0.02 % 9-29 [...] in the Branch evening. albuterol 2022-0 Yes [id number] 2.5mg Inhale 3 [facility] 2.5 mg /3 9-29 mL every 2 ity of mL (0.083 00:00: (two) [place] %) 00 hours as Medical nebulizer needed for Bran ch solution Shortness of Breath or Wheezing. ipratropium 2-0 Yes [id number] .5mg Inhale 2.5 [facility] 0.02 % 9-29 [...] in the Branch evening. albuterol 2-0 Yes [id number] 2.5mg Inhale 3 [facility] 2.5 mg /3 9-29 mL every 2 ity of mL (0.083 00:00: (two) [place] %) 00 hours as Medical nebulizer needed for Bran ch solution Shortness of Breath or Wheezing. ipratropium 2-0 Yes [id number] .5mg Inhale 2.5 [facility] 0.02 % 9-29 [...] in the Branch evening. albuterol 2022-0 Yes [id number] 2.5mg Inhale 3 [facility] 2.5 mg /3 9-29 mL every 2 ity of mL (0.083 00:00: (two) [place] %) 00 hours as Medical nebulizer needed for Bran ch solution Shortness of Breath or Wheezing. ipratropium 2022-0 Yes [id number] .5mg Inhale 2.5 [facility] 0.02 % 9-29 [...] in the Branch evening. albuterol 2022-0 Yes [id number] 2.5mg Inhale 3 [facility] 2.5 mg /3 9-29 mL every 2 ity of mL (0.083 00:00: (two) [place] %) 00 hours as Medical nebulizer needed for Bran ch solution Shortness of Breath or Wheezing. ipratropium 2022-0 Yes [id number] .5mg Inhale 2.5 [facility] 0.02 % 9-29 [...] in the Branch evening. albuterol 2022-0 Yes [id number] 2.5mg Inhale 3 [facility] 2.5 mg /3 9-29 mL every 2 ity of mL (0.083 00:00: (two) [place] %) 00 hours as Medical nebulizer needed for Bran ch solution Shortness of Breath or Wheezing. ipratropium 2021-0 Yes [id number] .5mg Inhale 2.5 [facility] 0.02 % 11-30 mL every 4 ity of nebulizer 00:00: [...] .25mg Inhale 2 Un renetta 0.25 mg/2 11-30 mL in the ity o f mL 00:00: morning [place] nebulizer 00 and 2 mL Medica l solution in the Branch evening. albuterol 2021-3- No [id number] 2.5mg Inhale 3 [facility] 2.5 mg /3 11-30 01-05 mL every 2 ity of mL (0.083 00:00: 00:00 (two) [place] %) 00 :00 hours as Medical nebulizer needed for Bran ch solution Shortness of Breath or Wheezing. ipratropium 2021-0 3- No [id number] .5mg Inhale 2.5 [facility] 0.02 % 11-30 [...] 2 mL in the evening. budesonide 2021-0 3- No .25mg Inhale 2 U nivers 0.25 mg/2 11-30 01-05 mL in the ity of mL 00:00: 00:00 morning [place] nebulizer 00 :00 and 2 mL Medica l solution in the Branch evening. albuterol 2021-0 3- No [id number] 2.5mg Inhale 3 [facility] 2.5 mg /3 11-30 01-05 mL every 2 ity of mL (0.083 00:00: 00:00 (two) [place] %) 00 :00 hours as Medical nebulizer needed for Bran ch solution Shortness of Breath or Wheezing. ipratropium 2021-0 2022- No [id number] .5mg Inhale 2.5 [facility] 0.02 % 11-30-05 [...] in the Branch evening. albuterol 2021-2022- No [id number] 2.5mg Inhale 3 [facility] 2.5 mg /3 11-30-05 mL every 2 ity of mL (0.083 00:00: 00:00 (two) [place] %) 00 :00 hours as Medical nebulizer needed for Bran ch solution Shortness of Breath or Wheezing. ipratropium 2021-0 2022- No [id number] .5mg Inhale 2.5 [facility] 0.02 % 11-30-05 [...] 2 mL in the evening. budesonide 2022-0 3- No .25mg Inhale 2 U nivers 0.25 mg/2 11-30-05 mL in the ity of mL 00:00: 00:00 morning [place] nebulizer 00 :00 and 2 mL Medica l solution in the Branch evening. albuterol 2022- No [id number] 2.5mg Inhale 3 [facility] 2.5 mg /3 11-3005 mL every 2 ity of mL (0.083 00:00: 00:00 (two) [place] %) 00 :00 hours as Medical nebulizer needed for Bran ch solution Shortness of Breath or Wheezing. ipratropium 2022- No [id number] .5mg Inhale 2.5 [facility] 0.02 % 11-30 mL every 4 ity of nebulizer 00:00: [...] Inhale 2 U nivers 0.25 mg/2 11-30 mL in the ity of mL 00:00: 00:00 morning [place] nebulizer 00 :00 and 2 mL Medica l solution in the Branch evening. Desoximetas Yes [id number] Apply to [facility] one 0.25 % 9-27 area(s) 2 ity of ointment 00:00: (two) [place] 00 times Medical daily. Branch Desoximetas 0 Yes [id number] Apply to [facility] one 0.25 % 9-27 area(s) 2 ity of ointment 00:00: (two) [place] 00 times Medical daily. Branch Desoximetas 2021-0 Yes [id number] Apply to [facility] one 0.25 % 9-27 area(s) 2 ity of ointment 00:00: (two) [place] 00 times Medical daily. Branch Desoximetas 0 Yes [id number] Apply to [facility] one 0.25 % 9-27 area(s) 2 ity of ointment 00:00: (two) [place] 00 times Medical daily. Branch Desoximetas 2021-0 Yes [id number] Apply to [facility] one 0.25 % 9-27 area(s) 2 ity of ointment 00:00: (two) [place] 00 times Medical daily. Branch Desoximetas 2-0 Yes [id number] Apply to [facility] one 0.25 % 9-27 area(s) 2 ity of ointment 00:00: (two) [place] 00 times Medical daily. Branch Desoximetas 2-0 Yes [id number] Apply to [facility] one 0.25 % 9-27 area(s) 2 ity of ointment 00:00: (two) [place] 00 times Medical daily. Branch Desoximetas 2-0 Yes [id number] Apply to [facility] one 0.25 % 9-27 area(s) 2 ity of ointment 00:00: (two) [place] 00 times Medical daily. Branch Desoximetas 2-0 Yes [id number] Apply to [facility] one 0.25 % 9-27 area(s) 2 ity of ointment 00:00: (two) [place] 00 times Medical daily. Branch Desoximetas 2-0 Yes [id number] Apply to [facility] one 0.25 % 9-27 area(s) 2 ity of ointment 00:00: (two) [place] 00 times Medical daily. Branch Desoximetas 2-0 Yes [id number] Apply to [facility] one 0.25 % 9-27 area(s) 2 ity of ointment 00:00: (two) [place] 00 times Medical daily. Branch Desoximetas 2-0 Yes [id number] Apply to [facility] one 0.25 % 9-27 area(s) 2 ity of ointment 00:00: (two) [place] 00 times Medical daily. Branch Desoximetas 2022-0 Yes [id number] Apply to [facility] one 0.25 % 9-27 area(s) 2 ity of ointment 00:00: (two) [place] 00 times Medical daily. Branch Desoximetas 2022-0 Yes [id number] Apply to [facility] one 0.25 % 9-27 area(s) 2 ity of ointment 00:00: (two) [place] 00 times Medical daily. Branch Desoximetas 2022-0 Yes [id number] Apply to [facility] one 0.25 % 9-27 area(s) 2 ity of ointment 00:00: (two) [place] 00 times Medical daily. Branch Desoximetas 2-0 Yes [id number] Apply to [facility] one 0.25 % 9-27 area(s) 2 ity of ointment 00:00: (two) [place] 00 times Medical daily. Branch Desoximetas 2-0 Yes [id number] Apply to [facility] one 0.25 % 9-27 area(s) 2 ity of ointment 00:00: (two) [place] 00 times Medical daily. Branch Desoximetas 2-0 Yes [id number] Apply to [facility] one 0.25 % 9-27 area(s) 2 ity of ointment 00:00: (two) [place] 00 times Medical daily. Branch Desoximetas 2-0 Yes [id number] Apply to [facility] one 0.25 % 9-27 area(s) 2 ity of ointment 00:00: (two) [place] 00 times Medical daily. Branch Desoximetas 2-0 Yes [id number] Apply to [facility] one 0.25 % 9-27 area(s) 2 ity of ointment 00:00: (two) [place] 00 times Medical daily. Branch Desoximetas 2-0 Yes [id number] Apply to [facility] one 0.25 % 9-27 area(s) 2 ity of ointment 00:00: (two) [place] 00 times Medical daily. Branch Desoximetas 2-0 Yes [id number] Apply to [facility] one 0.25 % 9-27 area(s) 2 ity of ointment 00:00: (two) [place] 00 times Medical daily. Branch Desoximetas 2022-0 Yes [id number] Apply to [facility] one 0.25 % 9-27 area(s) 2 ity of ointment 00:00: (two) [place] 00 times Medical daily. Branch Desoximetas 2022-0 Yes [id number] Apply to [facility] one 0.25 % 9-27 area(s) 2 ity of ointment 00:00: (two) [place] 00 times Medical daily. Branch Desoximetas 2022-0 Yes [id number] Apply to [facility] one 0.25 % 9-27 area(s) 2 ity of ointment 00:00: (two) [place] 00 times Medical daily. Branch Desoximetas 2-0 Yes [id number] Apply to [facility] one 0.25 % 9-27 area(s) 2 ity of ointment 00:00: (two) [place] 00 times Medical daily. Branch Desoximetas 2-0 Yes [id number] Apply to [facility] one 0.25 % 9-27 area(s) 2 ity of ointment 00:00: (two) [place] 00 times Medical daily. Branch Desoximetas 2-0 Yes [id number] Apply to [facility] one 0.25 % 9-27 area(s) 2 ity of ointment 00:00: (two) [place] 00 times Medical daily. Branch Desoximetas 2-0 Yes [id number] Apply to [facility] one 0.25 % 9-27 area(s) 2 ity of ointment 00:00: (two) [place] 00 times Medical daily. Branch Desoximetas 2-0 Yes [id number] Apply to [facility] one 0.25 % 9-27 area(s) 2 ity of ointment 00:00: (two) [place] 00 times Medical daily. Branch Desoximetas 2-0 Yes [id number] Apply to [facility] one 0.25 % 9-27 area(s) 2 ity of ointment 00:00: (two) [place] 00 times Medical daily. Branch Desoximetas 2-0 Yes [id number] Apply to [facility] one 0.25 % 9-27 area(s) 2 ity of ointment 00:00: (two) [place] 00 times Medical daily. Branch Desoximetas 2022-0 Yes [id number] Apply to [facility] one 0.25 % 9-27 area(s) 2 ity of ointment 00:00: (two) [place] 00 times Medical daily. Branch Desoximetas 2022-0 Yes [id number] Apply to [facility] one 0.25 % 9-27 area(s) 2 ity of ointment 00:00: (two) [place] 00 times Medical daily. Branch Desoximetas 2022-0 Yes [id number] Apply to [facility] one 0.25 % 9-27 area(s) 2 ity of ointment 00:00: (two) [place] 00 times Medical daily. Branch Desoximetas 2-0 Yes [id number] Apply to [facility] one 0.25 % 9-27 area(s) 2 ity of ointment 00:00: (two) [place] 00 times Medical daily. Branch Desoximetas 2-0 Yes [id number] Apply to [facility] one 0.25 % 9-27 area(s) 2 ity of ointment 00:00: (two) [place] 00 times Medical daily. Branch Desoximetas 2-0 Yes [id number] Apply to [facility] one 0.25 % 9-27 area(s) 2 ity of ointment 00:00: (two) [place] 00 times Medical daily. Branch Desoximetas 2-0 Yes [id number] Apply to [facility] one 0.25 % 9-27 area(s) 2 ity of ointment 00:00: (two) [place] 00 times Medical daily. Branch Desoximetas 2-0 Yes [id number] Apply to [facility] one 0.25 % 9-27 area(s) 2 ity of ointment 00:00: (two) [place] 00 times Medical daily. Branch Desoximetas 2-0 Yes [id number] Apply to [facility] one 0.25 % 9-27 area(s) 2 ity of ointment 00:00: (two) [place] 00 times Medical daily. Branch Desoximetas 2-0 Yes [id number] Apply to [facility] one 0.25 % 9-27 area(s) 2 ity of ointment 00:00: (two) [place] 00 times Medical daily. Branch Desoximetas 2022-0 Yes [id number] Apply to [facility] one 0.25 % 9-27 area(s) 2 ity of ointment 00:00: (two) [place] 00 times Medical daily. Branch Desoximetas 2022-0 Yes [id number] Apply to [facility] one 0.25 % 9-27 area(s) 2 ity of ointment 00:00: (two) [place] 00 times Medical daily. Branch Desoximetas 2022-0 Yes [id number] Apply to [facility] one 0.25 % 9-27 area(s) 2 ity of ointment 00:00: (two) [place] 00 times Medical daily. Branch Desoximetas 2-0 Yes [id number] Apply to [facility] one 0.25 % 9-27 area(s) 2 ity of ointment 00:00: (two) [place] 00 times Medical daily. Branch Desoximetas 2-0 Yes [id number] Apply to [facility] one 0.25 % 9-27 area(s) 2 ity of ointment 00:00: (two) [place] 00 times Medical daily. Branch Desoximetas 2-0 Yes [id number] Apply to [facility] one 0.25 % 9-27 area(s) 2 ity of ointment 00:00: (two) [place] 00 times Medical daily. Branch Desoximetas 2-0 Yes [id number] Apply to [facility] one 0.25 % 9-27 area(s) 2 ity of ointment 00:00: (two) [place] 00 times Medical daily. Branch Desoximetas 2-0 Yes [id number] Apply to [facility] one 0.25 % 9-27 area(s) 2 ity of ointment 00:00: (two) [place] 00 times Medical daily. Branch Desoximetas 2-0 Yes [id number] Apply to [facility] one 0.25 % 9-27 area(s) 2 ity of ointment 00:00: (two) [place] 00 times Medical daily. Branch Desoximetas 2-0 Yes [id number] Apply to [facility] one 0.25 % 9-27 area(s) 2 ity of ointment 00:00: (two) [place] 00 times Medical daily. Branch Desoximetas 2022-0 Yes [id number] Apply to [facility] one 0.25 % 9-27 area(s) 2 ity of ointment 00:00: (two) [place] 00 times Medical daily. Branch Desoximetas 2022-0 Yes [id number] Apply to [facility] one 0.25 % 9-27 area(s) 2 ity of ointment 00:00: (two) [place] 00 times Medical daily. Branch Desoximetas 2022-0 Yes [id number] Apply to [facility] one 0.25 % 9-27 area(s) 2 ity of ointment 00:00: (two) [place] 00 times Medical daily. Branch Desoximetas 2-0 Yes [id number] Apply to [facility] one 0.25 % 9-27 area(s) 2 ity of ointment 00:00: (two) [place] 00 times Medical daily. Branch Desoximetas 2-0 Yes [id number] Apply to [facility] one 0.25 % 9-27 area(s) 2 ity of ointment 00:00: (two) [place] 00 times Medical daily. Branch Desoximetas 2-0 Yes [id number] Apply to [facility] one 0.25 % 9-27 area(s) 2 ity of ointment 00:00: (two) [place] 00 times Medical daily. Branch Desoximetas 2-0 Yes [id number] Apply to [facility] one 0.25 % 9-27 area(s) 2 ity of ointment 00:00: (two) [place] 00 times Medical daily. Branch Desoximetas 2-0 Yes [id number] Apply to [facility] one 0.25 % 9-27 area(s) 2 ity of ointment 00:00: (two) [place] 00 times Medical daily. Branch Desoximetas 2-0 Yes [id number] Apply to [facility] one 0.25 % 9-27 area(s) 2 ity of ointment 00:00: (two) [place] 00 times Medical daily. Branch Desoximetas 2-0 Yes [id number] Apply to [facility] one 0.25 % 9-27 area(s) 2 ity of ointment 00:00: (two) [place] 00 times Medical daily. Branch Desoximetas 2022-0 Yes [id number] Apply to [facility] one 0.25 % 9-27 area(s) 2 ity of ointment 00:00: (two) [place] 00 times Medical daily. Branch Desoximetas 2022-0 Yes [id number] Apply to [facility] one 0.25 % 9-27 area(s) 2 ity of ointment 00:00: (two) [place] 00 times Medical daily. Branch Desoximetas 2022-0 Yes [id number] Apply to [facility] one 0.25 % 9-27 area(s) 2 ity of ointment 00:00: (two) [place] 00 times Medical daily. Branch Desoximetas 2021-0 Yes [id number] Apply to [facility] one 0.25 % 9-27 area(s) 2 ity of ointment 00:00: (two) [place] 00 times Medical daily. Branch Desoximetas 2021-0 Yes [id number] Apply to [facility] one 0.25 % 9-27 area(s) 2 ity of ointment 00:00: (two) [place] 00 times Medical daily. Branch Desoximetas 2021-0 2023- No [id number] Apply to [facility] one 0.25 % 9-27 07-18 area(s) 2 ity of ointment 00:00: 00:00 (two) [place] 00 :00 times Medical daily. Branch Desoximetas 2021-0 2023- No [id number] Apply to [facility] one 0.25 % 9-27 07-18 area(s) 2 ity of ointment 00:00: 00:00 (two) [place] 00 :00 times Medical daily. Branch hydrOXYzine 2021-0 Yes [id number] 25mg Take 1 [facility] 25 mg 9-12 capsule by ity of capsule 00:00: mouth 3 [place] 00 (three) Medical times Branch daily as needed for Itching. allopurinoL 2021-0 Yes [id number] 50mg Take 0.5 [facility] 100 mg 9-12 tablets by ity of tablet 00:00: mouth [place] 00 every Medical other day. Branch hydrOXYzine 2021-0 Yes [id number] 25mg Take 1 [facility] 25 mg 9-12 capsule by ity of capsule 00:00: mouth 3 [place] 00 (three) Medical times [place] daily as needed for Itching. allopurinoL 2-0 Yes [id number] 50mg Take 0.5 [facility] 100 mg 9-12 tablets by ity of tablet 00:00: mouth [place] 00 every Medical other day. Branch hydrOXYzine 2021-0 Yes [id number] 25mg Take 1 [facility] 25 mg 9-12 capsule by ity of capsule 00:00: mouth 3 [place] 00 (three) Medical times Branch daily as needed for Itching. allopurinoL 2-0 Yes [id number] 50mg Take 0.5 [facility] 100 mg 9-12 tablets by ity of tablet 00:00: mouth [place] 00 every Medical other day. Branch hydrOXYzine 2021-0 Yes [id number] 25mg Take 1 [facility] 25 mg 9-12 capsule by ity of capsule 00:00: mouth 3 (three) Medical times Branch daily as needed for Itching. allopurinoL 2021-0 Yes [id number] 50mg Take 0.5 [facility] 100 mg 9-12 tablets by ity of tablet 00:00: mouth [place] 00 every Medical other day. Branch hydrOXYzine 2021-0 Yes [id number] 25mg Take 1 [facility] 25 mg 9-12 capsule by ity of capsule 00:00: mouth (three) Medical times Branch daily as needed for Itching. allopurinoL 2021-0 Yes [id number] 50mg Take 0.5 [facility] 100 mg 9-12 tablets by ity of tablet 00:00: mouth [place] 00 every Medical other day. Branch hydrOXYzine 2021-0 Yes [id number] 25mg Take 1 [facility] 25 mg 9-12 capsule by ity of capsule 00:00: mouth (three) Medical times Branch daily as needed for Itching. allopurinoL 2021-0 Yes [id number] 50mg Take 0.5 [facility] 100 mg 9-12 tablets by ity of tablet 00:00: mouth [place] 00 every Medical other day. Branch hydrOXYzine 2021-0 Yes [id number] 25mg Take 1 [facility] 25 mg 9-12 capsule by ity of capsule 00:00: mouth (three) Medical times Branch daily as needed for Itching. allopurinoL 2021-0 Yes [id number] 50mg Take 0.5 [facility] 100 mg 9-12 tablets by ity of tablet 00:00: mouth [place] 00 every Medical other day. Branch hydrOXYzine 2021-0 Yes [id number] 25mg Take 1 [facility] 25 mg 9-12 capsule by ity of capsule 00:00: mouth 3 (three) Medical times Branch daily as needed for Itching. allopurinoL 2-0 Yes [id number] 50mg Take 0.5 [facility] 100 mg 9-12 tablets by ity of tablet 00:00: mouth [place] 00 every Medical other day. Branch hydrOXYzine 2021-0 Yes [id number] 25mg Take 1 [facility] 25 mg 9-12 capsule by ity of capsule 00:00: mouth 3 (three) Medical times Branch daily as needed for Itching. allopurinoL 2021-0 Yes [id number] 50mg Take 0.5 [facility] 100 mg 9-12 tablets by ity of tablet 00:00: mouth [place] 00 every Medical other day. Branch hydrOXYzine 2021-0 Yes [id number] 25mg Take 1 [facility] 25 mg 9-12 capsule by ity of capsule 00:00: mouth (three) Medical times Branch daily as needed for Itching. allopurinoL 2021-0 Yes [id number] 50mg Take 0.5 [facility] 100 mg 9-12 tablets by ity of tablet 00:00: mouth 00 every Medical other day. Branch hydrOXYzine 2021-0 Yes [id number] 25mg Take 1 [facility] 25 mg 9-12 capsule by ity of capsule 00:00: mouth (three) Medical times Branch daily as needed for Itching. allopurinoL 2021-0 Yes [id number] 50mg Take 0.5 [facility] 100 mg 9-12 tablets by [facility] of tablet 00:00: mouth 00 every Medical other day. [facility] hydrOXYzine 2021-0 Yes [id number] 25mg Take 1 [facility] 25 mg 9-12 capsule by [facility] of capsule 00:00: mouth (three) Medical times Branch daily as needed for Itching. allopurinoL 2021-0 Yes [id number] 50mg Take 0.5 [facility] 100 mg 9-12 tablets by ity of tablet 00:00: mouth 00 every Medical other day. Branch hydrOXYzine 2021-0 Yes [id number] 25mg Take 1 [facility] 25 mg 9-12 capsule by [facility] of capsule 00:00: mouth (three) Medical times Branch daily as needed for Itching. allopurinoL 2021-0 Yes [id number] 50mg Take 0.5 [facility] 100 mg 9-12 tablets by it[facility] of tablet 00:00: mouth [place] 00 every Medical other day. Branch hydrOXYzine 2021-0 Yes [id number] 25mg Take 1 [facility] 25 mg 9-12 capsule by [facility] of capsule 00:00: mouth (three) Medical times Branch daily as needed for Itching. allopurinoL 2-0 Yes [id number] 50mg Take 0.5 [facility] 100 mg 9-12 tablets by ity of tablet 00:00: mouth [place] 00 every Medical other day. Branch hydrOXYzine 2-0 Yes [id number] 25mg Take 1 [facility] 25 mg 9-12 capsule by it[facility] of capsule 00:00: mouth 3 (three) Medical times Branch daily as needed for Itching. allopurinoL 2-0 Yes [id number] 50mg Take 0.5 [facility] 100 mg 9-12 tablets by ity of tablet 00:00: mouth [place] 00 every Medical other day. Branch hydrOXYzine 2021-0 Yes [id number] 25mg Take 1 [facility] 25 mg 9-12 capsule by [facility] of capsule 00:00: mouth 3 (three) Medical times Branch daily as needed for Itching. allopurinoL 2021-0 Yes [id number] 50mg Take 0.5 [facility] 100 mg 9-12 tablets by it[facility] of tablet 00:00: mouth [place] 00 every Medical other day. Branch hydrOXYzine 2021-0 Yes [id number] 25mg Take 1 [facility] 25 mg 9-12 capsule by [facility] of capsule 00:00: mouth (three) Medical times Branch daily as needed for Itching. allopurinoL 2021-0 Yes [id number] 50mg Take 0.5 [facility] 100 mg 9-12 tablets by ity of tablet 00:00: mouth [place] 00 every Medical other day. Branch hydrOXYzine 2021-0 Yes [id number] 25mg Take 1 [facility] 25 mg 9-12 capsule by [facility]y of capsule 00:00: mouth (three) Medical times Branch daily as needed for Itching. allopurinoL 2-0 Yes [id number] 50mg Take 0.5 [facility] 100 mg 9-12 tablets by ity of tablet 00:00: mouth [place] 00 every Medical other day. Branch hydrOXYzine 2-0 Yes [id number] 25mg Take 1 [facility] 25 mg 9-12 capsule by [facility] of capsule 00:00: mouth 3 (three) Medical times Branch daily as needed for Itching. allopurinoL 2022-0 Yes [id number] 50mg Take 0.5 [facility] 100 mg 9-12 tablets by ity of tablet 00:00: mouth [place] 00 every Medical other day. Branch hydrOXYzine 2-0 Yes [id number] 25mg Take 1 [facility] 25 mg 9-12 capsule by [facility] of capsule 00:00: mouth (three) Medical times Branch daily as needed for Itching. allopurinoL 2021-0 Yes [id number] 50mg Take 0.5 [facility] 100 mg 9-12 tablets by it[facility] of tablet 00:00: mouth [place] 00 every Medical other day. Branch hydrOXYzine 2021-0 Yes [id number] 25mg Take 1 [facility] 25 mg 9-12 capsule by [facility] of capsule 00:00: mouth (three) Medical times Branch daily as needed for Itching. allopurinoL 2021-0 Yes [id number] 50mg Take 0.5 [facility] 100 mg 9-12 tablets by [facility] of tablet 00:00: mouth 00 every Medical other day. Branch hydrOXYzine 2021-0 Yes [id number] 25mg Take 1 [facility] 25 mg 9-12 capsule by [facility] of capsule 00:00: mouth (three) Medical times Branch daily as needed for Itching. allopurinoL 2021-0 Yes [id number] 50mg Take 0.5 [facility] 100 mg 9-12 tablets by [facility] of tablet 00:00: mouth 00 every Medical other day. Branch hydrOXYzine 2021-0 Yes [id number] 25mg Take 1 [facility] 25 mg 9-12 capsule by [facility] of capsule 00:00: mouth (three) Medical times Branch daily as needed for Itching. allopurinoL 2021-0 Yes [id number] 50mg Take 0.5 [facility] 100 mg 9-12 tablets by it[facility] of tablet 00:00: mouth [place] 00 every Medical other day. Branch hydrOXYzine 2021-0 Yes [id number] 25mg Take 1 [facility] 25 mg 9-12 capsule by [facility] of capsule 00:00: mouth (three) Medical times Branch daily as needed for Itching. allopurinoL 2021-0 Yes [id number] 50mg Take 0.5 [facility] 100 mg 9-12 tablets by [facility] of tablet 00:00: mouth [place] 00 every Medical other day. Branch hydrOXYzine 2-0 Yes [id number] 25mg Take 1 [facility] 25 mg 9-12 capsule by [facility] of capsule 00:00: mouth 3 (three) Medical times Branch daily as needed for Itching. allopurinoL 2022-0 Yes [id number] 50mg Take 0.5 [facility] 100 mg 9-12 tablets by it[facility] of tablet 00:00: mouth [place] 00 every Medical other day. Branch hydrOXYzine 2-0 Yes [id number] 25mg Take 1 [facility] 25 mg 9-12 capsule by it[facility] of capsule 00:00: mouth (three) Medical times Branch daily as needed for Itching. allopurinoL 2-0 Yes [id number] 50mg Take 0.5 [facility] 100 mg 9-12 tablets by it[facility] of tablet 00:00: mouth [place] 00 every Medical other day. Branch hydrOXYzine 2-0 Yes [id number] 25mg Take 1 [facility] 25 mg 9-12 capsule by [facility] of capsule 00:00: mouth 3 (three) Medical times Branch daily as needed for Itching. allopurinoL 2-0 Yes [id number] 50mg Take 0.5 [facility] 100 mg 9-12 tablets by it[facility] of tablet 00:00: mouth [place] 00 every Medical other day. Branch hydrOXYzine 2021-0 Yes [id number] 25mg Take 1 [facility] 25 mg 9-12 capsule by [facility] of capsule 00:00: mouth (three) Medical times Branch daily as needed for Itching. allopurinoL 2-0 Yes [id number] 50mg Take 0.5 [facility] 100 mg 9-12 tablets by it[facility] of tablet 00:00: mouth 00 every Medical other day. Branch hydrOXYzine 2021-0 Yes [id number] 25mg Take 1 [facility] 25 mg 9-12 capsule by [facility] of capsule 00:00: mouth (three) Medical times Branch daily as needed for Itching. allopurinoL 2-0 Yes [id number] 50mg Take 0.5 [facility] 100 mg 9-12 tablets by it[facility] of tablet 00:00: mouth [place] 00 every Medical other day. Branch hydrOXYzine 2-0 Yes [id number] 25mg Take 1 [facility] 25 mg 9-12 capsule by [facility] of capsule 00:00: mouth 3 (three) Medical times Branch daily as needed for Itching. allopurinoL 2022-0 Yes [id number] 50mg Take 0.5 [facility] 100 mg 9-12 tablets by it[facility] of tablet 00:00: mouth [place] 00 every Medical other day. Branch hydrOXYzine 2-0 Yes [id number] 25mg Take 1 [facility] 25 mg 9-12 capsule by it[facility] of capsule 00:00: mouth 3 [place] 00 (three) Medical times [place] daily as needed for Itching. allopurinoL 2-0 Yes [id number] 50mg Take 0.5 [facility] 100 mg 9-12 tablets by ity of tablet 00:00: mouth [place] 00 every Medical other day. Branch hydrOXYzine 2-0 Yes [id number] 25mg Take 1 [facility] 25 mg 9-12 capsule by [facility] of capsule 00:00: mouth 3 (three) Medical times [place] daily as needed for Itching. allopurinoL 2021-0 Yes [id number] 50mg Take 0.5 [facility] 100 mg 9-12 tablets by it[facility] of tablet 00:00: mouth [place] 00 every Medical other day. Branch hydrOXYzine 2-0 Yes [id number] 25mg Take 1 [facility] 25 mg 9-12 capsule by [facility] of capsule 00:00: mouth 3 (three) Medical times [place] daily as needed for Itching. allopurinoL 2021-0 Yes [id number] 50mg Take 0.5 [facility] 100 mg 9-12 tablets by [facility] of tablet 00:00: mouth [place] 00 every Medical other day. Branch allopurinoL 2021-0 Yes [id number] 50mg Take 0.5 [facility] 100 mg 9-12 tablets by it[facility] of tablet 00:00: mouth [place] 00 every Medical other day. Branch allopurinoL 2021-0 Yes [id number] 50mg Take 0.5 [facility] 100 mg 9-12 tablets by it[facility] of tablet 00:00: mouth [place] 00 every Medical other day. Branch allopurinoL 2021-0 Yes [id number] 50mg Take 0.5 [facility] 100 mg 9-12 tablets by ity of tablet 00:00: mouth [place] 00 every Medical other day. Branch allopurinoL 2021-0 Yes [id number] 50mg Take 0.5 [facility] 100 mg 9-12 tablets by [facility] of tablet 00:00: mouth [place] 00 every Medical other day. Branch allopurinoL 2022-0 Yes [id number] 50mg Take 0.5 [facility] 100 mg 9-12 tablets by it[facility] of tablet 00:00: mouth [place] 00 every Medical other day. Branch allopurinoL 2-0 Yes [id number] 50mg Take 0.5 [facility] 100 mg 9-12 tablets by [facility] of tablet 00:00: mouth [place] 00 every Medical other day. Branch allopurinoL 2-0 Yes [id number] 50mg Take 0.5 [facility] 100 mg 9-12 tablets by [facility] of tablet 00:00: mouth [place] 00 every Medical other day. Branch allopurinoL 2021-0 Yes [id number] 50mg Take 0.5 [facility] 100 mg 9-12 tablets by [facility] of tablet 00:00: mouth [place] 00 every Medical other day. Branch allopurinoL 2021-0 Yes [id number] 50mg Take 0.5 [facility] 100 mg 9-12 tablets by [facility] of tablet 00:00: mouth [place] 00 every Medical other day. Branch allopurinoL 2021-0 Yes [id number] 50mg Take 0.5 [facility] 100 mg 9-12 tablets by [facility] of tablet 00:00: mouth [place] 00 every Medical other day. Branch allopurinoL 2021-0 Yes [id number] 50mg Take 0.5 [facility] 100 mg 9-12 tablets by [facility] of tablet 00:00: mouth [place] 00 every Medical other day. Branch allopurinoL 0 Yes [id number] 50mg Take 0.5 [facility] 100 mg 9-12 tablets by [facility] of tablet 00:00: mouth [place] 00 every Medical other day. Branch allopurinoL 0 Yes [id number] 50mg Take 0.5 [facility] 100 mg 9-12 tablets by [facility] of tablet 00:00: mouth [place] 00 every Medical other day. Branch allopurinoL 0 2022- No [id number] 50mg Take 0.5 [facility] 100 mg 9-12 01-05 tablets by it[facility] of tablet 00:00: 00:00 mouth [place] 00 :00 every Medical other day. Branch allopurinoL 2021-0 2022- No [id number] 50mg Take 0.5 [facility] 100 mg 9-12 01-05 tablets by ity of tablet 00:00: 00:00 mouth [place] 00 :00 every Medical other day. Branch allopurinoL 2021-0 2022- No [id number] 50mg Take 0.5 [facility] 100 mg 9-12 01-05 tablets by ity of tablet 00:00: 00:00 mouth [place] 00 :00 every Medical other day. Branch allopurinoL 2021-0 2022- No [id number] 50mg Take 0.5 [facility] 100 mg 9-12 01-05 tablets by ity of tablet 00:00: 00:00 mouth [place] 00 :00 every Medical other day. Branch hydrOXYzine 2021- No [id number] 25mg Take 1 [facility] 25 mg 11-1317 capsule by ity of capsule 00:00: 00:00 mouth 3 [place] 00 :00 (three) Medical times Branch daily as needed for Itching. hydrOXYzine 2021-0 2021- No 25mg Take 25 [...] 1{puff} Use 1 Puff [facility] ne HCl 9- in each ity of (AFRIN 09:34: nostril [place] NASAL) 49 every Medical other day. Branch Patient takes afrin over the counter, takes every other day oxymetazoli 2021-0 Yes 1{puff} Use 1 Puff [facility] ne HCl 9- in each ity of (AFRIN 09:34: nostril [...] 1{puff} Use 1 Puff [facility] ne HCl 9- in each ity of (AFRIN 09:34: nostril [place] NASAL) 49 every Medical other day. Branch Patient takes afrin over the counter, takes every other day oxymetazoli 2021-0 Yes 1{puff} Use 1 Puff [facility] ne HCl 9- in each ity of (AFRIN 09:34: nostril [place] NASAL) 49 every Medical other day. Branch Patient takes afrin over the counter, takes every other day bumetanide 2021-0 Yes 1mg Take 1 mg Un renetta 1 mg tablet 11-02 by mouth ity of 09:34: in the [place] 48 morning. Medical Indication Branch s: reports kidney Dr Rx, ~2 mths ago bumetanide 2022-0 Yes 1mg Take 1 mg Un renetta 1 mg tablet 9-01 by mouth ity of 09:34: in the [place] [address] morning. Medical Indication Branch s: reports kidney Dr Rx, ~2 mths ago bumetanide 2022-0 Yes 1mg Take 1 mg Un renetta 1 mg tablet 9-01 by mouth ity of 09:34: in the [place] [address] morning. Medical Indication Branch s: reports kidney Dr Rx, ~2 mths ago bumetanide 2022-0 Yes 1mg Take 1 mg Un renetta 1 mg tablet 9-01 by mouth ity of 09:34: in the [place] [address] morning. Medical Indication Branch s: reports kidney Dr Rx, ~2 mths ago bumetanide 2022-0 Yes 1mg Take 1 mg Un renetta 1 mg tablet 9-01 by mouth ity of 09:34: in the [place] 48 morning. Medical Indication Branch s: reports kidney Dr Rx, ~2 mths ago bumetanide 2022-0 Yes 1mg Take 1 mg Un renetta 1 mg tablet 9-01 by mouth ity of 09:34: in the [place] [address] morning. Medical Indication Branch s: reports kidney Dr Rx, ~2 mths ago bumetanide 2022-0 Yes 1mg Take 1 mg Un renetta 1 mg tablet 9-01 by mouth ity of 09:34: in the [place] [address] morning. Medical Indication Branch s: reports kidney Dr Rx, ~2 mths ago bumetanide 2022-0 Yes 1mg Take 1 mg Un renetta 1 mg tablet 9-01 by mouth ity of 09:34: in the [place] [address] morning. Medical Indication Branch s: reports kidney Dr Rx, ~2 mths ago bumetanide 2022-0 Yes 1mg Take 1 mg Un renetta 1 mg tablet 9-01 by mouth ity of 09:34: in the [place] 48 morning. Medical Indication Branch s: reports kidney Dr Rx, ~2 mths ago bumetanide 2022-0 Yes 1mg Take 1 mg Un renetta 1 mg tablet 9-01 by mouth ity of 09:34: in the [place] 48 morning. Medical Indication Branch s: reports kidney Dr Rx, ~2 mths ago bumetanide 2022-0 Yes 1mg Take 1 mg Un renetta 1 mg tablet 9-01 by mouth ity of 09:34: in the [place] [address] morning. Medical Indication Branch s: reports kidney Dr Rx, ~2 mths ago bumetanide 2022-0 Yes 1mg Take 1 mg Un renetta 1 mg tablet 9-01 by mouth ity of 09:34: in the [place] 48 morning. Medical Indication Branch s: reports kidney Dr Rx, ~2 mths ago bumetanide 2022-0 Yes 1mg Take 1 mg Un renetta 1 mg tablet 9-01 by mouth ity of 09:34: in the [place] 48 morning. Medical Indication Branch s: reports kidney Dr Rx, ~2 mths ago bumetanide 2022-0 Yes 1mg Take 1 mg Un renetta 1 mg tablet 9-01 by mouth ity of 09:34: in the [place] 48 morning. Medical Indication Branch s: reports kidney Dr Rx, ~2 mths ago bumetanide 2022-0 Yes 1mg Take 1 mg Un renetta 1 mg tablet 9-01 by mouth ity of 09:34: in the [place] [address] morning. Medical Indication Branch s: reports kidney Dr Rx, ~2 mths ago bumetanide 2022-0 Yes 1mg Take 1 mg Un renetta 1 mg tablet 9-01 by mouth ity of 09:34: in the [place] [address] morning. Medical Indication Branch s: reports kidney Dr Rx, ~2 mths ago bumetanide 2022-0 Yes 1mg Take 1 mg Un renetta 1 mg tablet 9-01 by mouth ity of 09:34: in the [place] [address] morning. Medical Indication Branch s: reports kidney Dr Rx, ~2 mths ago bumetanide 2022-0 Yes 1mg Take 1 mg Un renetta 1 mg tablet 9-01 by mouth ity of 09:34: in the [place] 48 morning. Medical Indication Branch s: reports kidney Dr Rx, ~2 mths ago bumetanide 2022-0 Yes 1mg Take 1 mg Un renetta 1 mg tablet 9-01 by mouth ity of 09:34: in the [place] 48 morning. Medical Indication Branch s: reports kidney Dr Rx, ~2 mths ago bumetanide 2022-0 Yes 1mg Take 1 mg Un renetta 1 mg tablet 9-01 by mouth ity of 09:34: in the [place] [address] morning. Medical Indication Branch s: reports kidney Dr Rx, ~2 mths ago bumetanide 2021-0 Yes 1mg Take 1 mg Un renetta 1 mg tablet 9-01 by mouth ity of 09:34: in the [place] [address] morning. Medical Indication Branch s: reports kidney Dr Rx, ~2 mths ago bumetanide 2021-0 Yes 1mg Take 1 mg Un renetta 1 mg tablet 9-01 by mouth ity of 09:34: in the [place] [address] morning. Medical Indication Branch s: reports kidney Dr Rx, ~2 mths ago bumetanide 2021-0 Yes 1mg Take 1 mg Un renetta 1 mg tablet 9-01 by mouth ity of 09:34: in the [place] [address] morning. Medical Indication Branch s: reports kidney Dr Rx, ~2 mths ago bumetanide 2021-0 Yes 1mg Take 1 mg Un renetta 1 mg tablet 9-01 by mouth ity of 09:34: in the [place] [address] morning. Medical Indication Branch s: reports kidney Dr Rx, ~2 mths ago bumetanide 2021-0 Yes 1mg Take 1 mg Un renetta 1 mg tablet 9-01 by mouth ity of 09:34: in the [place] [address] morning. Medical Indication Branch s: reports kidney Dr Rx, ~2 mths ago bumetanide 2021-0 Yes 1mg Take 1 mg Un renetta 1 mg tablet 9-01 by mouth ity of 09:34: in the [place] [address] morning. Medical Indication Branch s: reports kidney Dr Rx, ~2 mths ago bumetanide 2021-0 Yes 1mg Take 1 mg Un renetta 1 mg tablet 9-01 by mouth ity of 09:34: in the [place] [address] morning. Medical Indication Branch s: reports kidney Dr Rx, ~2 mths ago bumetanide 2021-0 Yes 1mg Take 1 mg Un renetta 1 mg tablet 9-01 by mouth ity of 09:34: in the [place] 48 morning. Medical Indication Branch s: reports kidney Dr Rx, ~2 mths ago Magnesium 2021-0 Yes [id number] 400mg Take 400 [facility] Oxide 420 8-24 [...] acute pain, chronic pain Magnesium 2-0 Yes [id number] 400mg Take 400 [facility] Oxide 420 8-24 [...] acute pain, chronic pain Magnesium 2021-0 Yes [id number] 400mg Take 400 [facility] Oxide 420 8-24 [...] acute pain, chronic pain Magnesium 2021-0 Yes [id number] 400mg Take 400 [facility] Oxide 420 8-24 [...] acute pain, chronic pain Magnesium 2-0 Yes [id number] 400mg Take 400 [facility] Oxide 420 8-24 [...] acute pain, chronic pain Magnesium 2-0 Yes [id number] 400mg Take 400 [facility] Oxide 420 8-24 [...] acute pain, chronic pain Magnesium 2021-0 Yes [id number] 400mg Take 400 [facility] Oxide 420 8-24 [...] acute pain, chronic pain Magnesium 2021-0 Yes [id number] 400mg Take 400 [facility] Oxide 420 8-24 [...] acute pain, chronic pain Magnesium 2-0 Yes [id number] 400mg Take 400 [facility] Oxide 420 8-24 [...] acute pain, chronic pain Magnesium 2-0 Yes [id number] 400mg Take 400 [facility] Oxide 420 8-24 [...] acute pain, chronic pain Magnesium 2-0 Yes [id number] 400mg Take 400 [facility] Oxide 420 8-24 [...] acute pain, chronic pain Magnesium 2021-0 Yes [id number] 400mg Take 400 [facility] Oxide 420 8-24 [...] acute pain, chronic pain Magnesium 2-0 Yes [id number] 400mg Take 400 [facility] Oxide 420 8-24 [...] acute pain, chronic pain Magnesium 2022-0 Yes [id number] 400mg Take 400 [facility] Oxide 420 8-24 [...] acute pain, chronic pain Magnesium 2021-0 Yes [id number] 400mg Take 400 [facility] Oxide 420 8-24 [...] acute pain, chronic pain Magnesium 2021-0 Yes [id number] 400mg Take 400 [facility] Oxide 420 8-24 [...] acute pain, chronic pain Magnesium 2021-0 Yes [id number] 400mg Take 400 [facility] Oxide 420 8-24 [...] acute pain, chronic pain Magnesium 2-0 Yes [id number] 400mg Take 400 [facility] Oxide 420 8-24 [...] acute pain, chronic pain Magnesium 2021-0 Yes [id number] 400mg Take 400 [facility] Oxide 420 8-24 [...] acute pain, chronic pain Magnesium 2021-0 Yes [id number] 400mg Take 400 [facility] Oxide 420 8-24 [...] acute pain, chronic pain Magnesium 2021-0 Yes [id number] 400mg Take 400 [facility] Oxide 420 8-24 [...] acute pain, chronic pain Magnesium 2021-0 Yes [id number] 400mg Take 400 [facility] Oxide 420 8-24 [...] acute pain, chronic pain Magnesium 2021-0 Yes [id number] 400mg Take 400 [facility] Oxide 420 8-24 [...] acute pain, chronic pain Magnesium 2021-0 Yes [id number] 400mg Take 400 [facility] Oxide 420 8-24 mg by ity of mg Tab 00:00: mouth [place] 00 daily. Medical Branch Magnesium 2021-0 Yes [id number] 400mg Take 400 [facility] Oxide 420 8-24 mg by ity of mg Tab 00:00: mouth [place] 00 daily. Medical Branch Magnesium 2021-0 Yes [id number] 400mg Take 400 [facility] Oxide 420 8-24 mg by ity of mg Tab 00:00: mouth [place] 00 daily. Medical Branch Magnesium 2021-0 Yes [id number] 400mg Take 400 [facility] Oxide 420 8-24 mg by ity of mg Tab 00:00: mouth [place] 00 daily. Medical Branch Magnesium 2021-0 Yes [id number] 400mg Take 400 [facility] Oxide 420 8-24 mg by ity of mg Tab 00:00: mouth [place] 00 daily. Medical Branch Magnesium 2021-0 Yes [id number] 400mg Take 400 [facility] Oxide 420 8-24 mg by ity of mg Tab 00:00: mouth [place] 00 daily. Medical Branch Magnesium 2021-0 Yes [id number] 400mg Take 400 [facility] Oxide 420 8-24 mg by ity of mg Tab 00:00: mouth [place] 00 daily. Medical Branch Magnesium 2021-0 Yes [id number] 400mg Take 400 [facility] Oxide 420 8-24 mg by ity of mg Tab 00:00: mouth [place] 00 daily. Medical Branch Magnesium 2021-0 Yes [id number] 400mg Take 400 [facility] Oxide 420 8-24 mg by ity of mg Tab 00:00: mouth [place] 00 daily. Medical Branch Magnesium 2022-0 Yes [id number] 400mg Take 400 [facility] Oxide 420 8-24 mg by ity of mg Tab 00:00: mouth [place] 00 daily. Medical Branch Magnesium 2-0 Yes [id number] 400mg Take 400 [facility] Oxide 420 8-24 mg by ity of mg Tab 00:00: mouth [place] 00 daily. Medical Branch Magnesium 2-0 Yes [id number] 400mg Take 400 [facility] Oxide 420 8-24 mg by ity of mg Tab 00:00: mouth [place] 00 daily. Medical Branch Magnesium 2-0 Yes [id number] 400mg Take 400 [facility] Oxide 420 8-24 mg by ity of mg Tab 00:00: mouth [place] 00 daily. Medical Branch Magnesium 2-0 Yes [id number] 400mg Take 400 [facility] Oxide 420 8-24 mg by ity of mg Tab 00:00: mouth [place] 00 daily. Medical Branch Magnesium 2021-0 Yes [id number] 400mg Take 400 [facility] Oxide 420 8-24 mg by ity of mg Tab 00:00: mouth [place] 00 daily. Medical Branch Magnesium 2021-0 Yes [id number] 400mg Take 400 [facility] Oxide 420 8-24 mg by ity of mg Tab 00:00: mouth [place] 00 daily. Medical Branch Magnesium 2021-0 Yes [id number] 400mg Take 400 [facility] Oxide 420 8-24 mg by ity of mg Tab 00:00: mouth [place] 00 daily. Medical Branch Magnesium 2021-0 Yes [id number] 400mg Take 400 [facility] Oxide 420 8-24 mg by ity of mg Tab 00:00: mouth [place] 00 daily. Medical Branch Magnesium 2-0 Yes [id number] 400mg Take 400 [facility] Oxide 420 8-24 mg by ity of mg Tab 00:00: mouth [place] 00 daily. Medical Branch Magnesium 2-0 Yes [id number] 400mg Take 400 [facility] Oxide 420 8-24 mg by ity of mg Tab 00:00: mouth [place] 00 daily. Medical Branch Magnesium 2-0 Yes [id number] 400mg Take 400 [facility] Oxide 420 8-24 mg by ity of mg Tab 00:00: mouth [place] 00 daily. Medical Branch Magnesium 2-0 Yes [id number] 400mg Take 400 [facility] Oxide 420 8-24 mg by ity of mg Tab 00:00: mouth [place] 00 daily. Medical Branch Magnesium 2-0 Yes [id number] 400mg Take 400 [facility] Oxide 420 8-24 mg by ity of mg Tab 00:00: mouth [place] 00 daily. Medical Branch Magnesium 2-0 Yes [id number] 400mg Take 400 [facility] Oxide 420 8-24 mg by ity of mg Tab 00:00: mouth [place] 00 daily. Medical Branch Magnesium 2-0 Yes [id number] 400mg Take 400 [facility] Oxide 420 8-24 mg by ity of mg Tab 00:00: mouth [place] 00 daily. Medical Branch Magnesium 2-0 Yes [id number] 400mg Take 400 [facility] Oxide 420 8-24 mg by ity of mg Tab 00:00: mouth [place] 00 daily. Medical Branch Magnesium 2021-0 Yes [id number] 400mg Take 400 [facility] Oxide 420 8-24 mg by ity of mg Tab 00:00: mouth [place] 00 daily. Medical Branch Magnesium 2021-0 Yes [id number] 400mg Take 400 [facility] Oxide 420 8-24 mg by ity of mg Tab 00:00: mouth [place] 00 daily. Medical Branch Magnesium 2-0 Yes [id number] 400mg Take 400 [facility] Oxide 420 8-24 mg by ity of mg Tab 00:00: mouth [place] 00 daily. Medical Branch Magnesium 2021-0 Yes [id number] 400mg Take 400 [facility] Oxide 420 8-24 mg by ity of mg Tab 00:00: mouth [place] 00 daily. Medical Branch Magnesium 2-0 Yes [id number] 400mg Take 400 [facility] Oxide 420 8-24 mg by ity of mg Tab 00:00: mouth [place] 00 daily. Medical Branch Magnesium 2-0 Yes [id number] 400mg Take 400 [facility] Oxide 420 8-24 mg by ity of mg Tab 00:00: mouth [place] 00 daily. Medical Branch Magnesium 2-0 Yes [id number] 400mg Take 400 [facility] Oxide 420 8-24 mg by ity of mg Tab 00:00: mouth [place] 00 daily. Medical Branch Magnesium 2-0 Yes [id number] 400mg Take 400 [facility] Oxide 420 8-24 mg by ity of mg Tab 00:00: mouth [place] 00 daily. Medical Branch Magnesium 2-0 Yes [id number] 400mg Take 400 [facility] Oxide 420 8-24 mg by ity of mg Tab 00:00: mouth [place] 00 daily. Medical Branch Magnesium 2-0 Yes [id number] 400mg Take 400 [facility] Oxide 420 8-24 mg by ity of mg Tab 00:00: mouth [place] 00 daily. Medical Branch Magnesium 2022-0 Yes [id number] 400mg Take 400 [facility] Oxide 420 8-24 mg by ity of mg Tab 00:00: mouth [place] 00 daily. Medical Branch Magnesium 2-0 Yes [id number] 400mg Take 400 [facility] Oxide 420 8-24 mg by ity of mg Tab 00:00: mouth [place] 00 daily. Medical Branch Magnesium 2-0 Yes [id number] 400mg Take 400 [facility] Oxide 420 8-24 mg by ity of mg Tab 00:00: mouth [place] 00 daily. Medical Branch Magnesium 2021-0 Yes [id number] 400mg Take 400 [facility] Oxide 420 8-24 mg by ity of mg Tab 00:00: mouth [place] 00 daily. Medical Branch Magnesium 2021-0 Yes [id number] 400mg Take 400 [facility] Oxide 420 8-24 mg by ity of mg Tab 00:00: mouth [place] 00 daily. Medical Branch Magnesium 2021-0 Yes [id number] 400mg Take 400 [facility] Oxide 420 8-24 mg by ity of mg Tab 00:00: mouth [place] 00 daily. Medical Branch Magnesium 2021-0 Yes [id number] 400mg Take 400 [facility] Oxide 420 8-24 mg by ity of mg Tab 00:00: mouth [place] 00 daily. Medical Branch Magnesium 2021-0 Yes [id number] 400mg Take 400 [facility] Oxide 420 8-24 mg by ity of mg Tab 00:00: mouth [place] 00 daily. Medical Branch Magnesium 2021-0 Yes [id number] 400mg Take 400 [facility] Oxide 420 8-24 mg by ity of mg Tab 00:00: mouth [place] 00 daily. Medical Branch Magnesium 2-0 Yes [id number] 400mg Take 400 [facility] Oxide 420 8-24 mg by ity of mg Tab 00:00: mouth [place] 00 daily. Medical Branch Magnesium 2-0 Yes [id number] 400mg Take 400 [facility] Oxide 420 8-24 mg by ity of mg Tab 00:00: mouth [place] 00 daily. Medical Branch Magnesium 2-0 Yes [id number] 400mg Take 400 [facility] Oxide 420 8-24 mg by ity of mg Tab 00:00: mouth [place] 00 daily. Medical Branch Magnesium 2-0 Yes [id number] 400mg Take 400 [facility] Oxide 420 8-24 mg by ity of mg Tab 00:00: mouth [place] 00 daily. Medical Branch Magnesium 2-0 Yes [id number] 400mg Take 400 [facility] Oxide 420 8-24 mg by ity of mg Tab 00:00: mouth [place] 00 daily. Medical Branch Magnesium 2-0 Yes [id number] 400mg Take 400 [facility] Oxide 420 8-24 mg by ity of mg Tab 00:00: mouth [place] 00 daily. Medical Branch Magnesium 2-0 Yes [id number] 400mg Take 400 [facility] Oxide 420 8-24 mg by ity of mg Tab 00:00: mouth [place] 00 daily. [facility] Magnesium 2-0 Yes [id number] 400mg Take 400 [facility] Oxide 420 8-24 mg by [facility] of mg Tab 00:00: mouth [place] 00 daily. [facility] Magnesium 2021-0 Yes [id number] 400mg Take 400 [facility] Oxide 420 8-24 mg by [facility] of mg Tab 00:00: mouth [place] 00 daily. [facility] Magnesium 2021-0 Yes [id number] 400mg Take 400 [facility] Oxide 420 8-24 mg by [facility] of mg Tab 00:00: mouth [place] 00 daily. [facility] Magnesium 2-0 Yes [id number] 400mg Take 400 [facility] Oxide 420 8-24 mg by [facility] of mg Tab 00:00: mouth [place] 00 daily. [facility] Magnesium 2021-0 Yes [id number] 400mg Take 400 [facility] Oxide 420 8-24 mg by [facility] of mg Tab 00:00: mouth [place] 00 daily. [facility] Magnesium 2-0 Yes [id number] 400mg Take 400 [facility] Oxide 420 8-24 mg by [facility] of mg Tab 00:00: mouth [place] 00 daily. [facility] Magnesium 2-0 Yes [id number] 400mg Take 400 [facility] Oxide 420 8-24 mg by [facility] of mg Tab 00:00: mouth [place] 00 daily. [facility] Magnesium 2-0 Yes [id number] 400mg Take 400 [facility] Oxide 420 8-24 mg by [facility] of mg Tab 00:00: mouth [place] 00 daily. [facility] Magnesium 2-0 Yes [id number] 400mg Take 400 [facility] Oxide 420 8-24 mg by [facility] of mg Tab 00:00: mouth [place] 00 daily. [facility] Magnesium 2-0 Yes [id number] 400mg Take 400 [facility] Oxide 420 8-24 mg by [facility] of mg Tab 00:00: mouth [place] 00 daily. [facility] Magnesium 2-0 Yes [id number] 400mg Take 400 [facility] Oxide 420 8-24 mg by [facility] of mg Tab 00:00: mouth [place] 00 daily. [facility] Magnesium 2-0 Yes [id number] 400mg Take 400 [facility] Oxide 420 8-24 mg by [facility] of mg Tab 00:00: mouth [place] 00 daily. [facility] Magnesium 2-0 Yes [id number] 400mg Take 400 [facility] Oxide 420 8-24 mg by [facility] of mg Tab 00:00: mouth [place] 00 daily. [facility] Magnesium 2-0 Yes [id number] 400mg Take 400 [facility] Oxide 420 8-24 mg by [facility] of mg Tab 00:00: mouth [place] 00 daily. [facility] Magnesium 2-0 Yes [id number] 400mg Take 400 [facility] Oxide 420 8-24 mg by [facility] of mg Tab 00:00: mouth [place] 00 daily. [facility] Magnesium 2-0 Yes [id number] 400mg Take 400 [facility] Oxide 420 8-24 mg by [facility] of mg Tab 00:00: mouth 00 daily. [facility] Magnesium 2021-0 Yes [id number] 400mg Take 400 [facility] Oxide 420 8-24 mg by [facility] of mg Tab 00:00: mouth 00 daily. [facility] Magnesium 2-0 Yes [id number] 400mg Take 400 [facility] Oxide 420 8-24 mg by [facility] of mg Tab 00:00: mouth [place] 00 daily. [facility] Magnesium 2-0 Yes [id number] 400mg Take 400 [facility] Oxide 420 8-24 mg by [facility] of mg Tab 00:00: mouth [place] 00 daily. [facility] Magnesium 2-0 Yes [id number] 400mg Take 400 [facility] Oxide 420 8-24 mg by [facility] of mg Tab 00:00: mouth [place] 00 daily. [facility] Magnesium 2-0 Yes [id number] 400mg Take 400 [facility] Oxide 420 8-24 mg by [facility] of mg Tab 00:00: mouth [place] 00 daily. [facility] Magnesium 2-0 Yes [id number] 400mg Take 400 [facility] Oxide 420 8-24 mg by [facility] of mg Tab 00:00: mouth [place] 00 daily. [facility] Magnesium 2-0 Yes [id number] 400mg Take 400 [facility] Oxide 420 8-24 mg by [facility] of mg Tab 00:00: mouth [place] 00 daily. [facility] Magnesium 2-0 Yes [id number] 400mg Take 400 [facility] Oxide 420 8-24 mg by [facility] of mg Tab 00:00: mouth [place] 00 daily. [facility] Magnesium 2-0 Yes [id number] 400mg Take 400 [facility] Oxide 420 8-24 mg by [facility] of mg Tab 00:00: mouth [place] 00 daily. [facility] Magnesium 2-0 Yes [id number] 400mg Take 400 [facility] Oxide 420 8-24 mg by [facility] of mg Tab 00:00: mouth [place] 00 daily. [facility] Magnesium 2-0 Yes [id number] 400mg Take 400 [facility] Oxide 420 8-24 mg by [facility] of mg Tab 00:00: mouth [place] 00 daily. [facility] Magnesium 2-0 Yes [id number] 400mg Take 400 [facility] Oxide 420 8-24 mg by [facility] of mg Tab 00:00: mouth [place] 00 daily. [facility] Magnesium 2021-0 Yes [id number] 400mg Take 400 [facility] Oxide 420 8-24 mg by [facility] of mg Tab 00:00: mouth [place] 00 daily. [facility] Magnesium 2021-0 Yes [id number] 400mg Take 400 [facility] Oxide 420 8-24 mg by [facility] of mg Tab 00:00: mouth [place] 00 daily. [facility] Magnesium 2021-0 Yes [id number] 400mg Take 400 [facility] Oxide 420 8-24 mg by [facility] of mg Tab 00:00: mouth [place] 00 daily. [facility] Magnesium 2021-0 Yes [id number] 400mg Take 400 [facility] Oxide 420 8-24 mg by [facility] of mg Tab 00:00: mouth [place] 00 daily. [facility] Magnesium 2-0 Yes [id number] 400mg Take 400 [facility] Oxide 420 8-24 mg by [facility] of mg Tab 00:00: mouth [place] 00 daily. [facility] Magnesium 2-0 Yes [id number] 400mg Take 400 [facility] Oxide 420 8-24 mg by [facility] of mg Tab 00:00: mouth [place] 00 daily. [facility] Magnesium 2-0 Yes [id number] 400mg Take 400 [facility] Ox[facility] 420 8-24 mg by [facility] of mg Tab 00:00: mouth [place] 00 daily. [facility] Magnesium 2-0 Yes [id number] 400mg Take 400 [facility] Ox[facility] 420 8-24 mg by [facility] mg Tab 00:00: mouth [place] 00 daily. [facility] Magnesium 2-0 Yes [id number] 400mg Take 400 [facility] Oxide 420 8-24 mg by [facility] mg Tab 00:00: mouth [place] 00 daily. [facility] Magnesium 2-0 Yes [id number] 400mg Take 400 [facility] Ox[facility] 420 8-24 mg by [facility] mg Tab 00:00: mouth [place] 00 daily. [facility] Magnesium 2-0 Yes [id number] 400mg Take 400 [facility] Oxide 420 8-24 mg by [facility] mg Tab 00:00: mouth [place] 00 daily. [facility] Magnesium 2-0 Yes [id number] 400mg Take 400 [facility] Ox[facility] 420 8-24 mg by [facility] mg Tab 00:00: mouth [place] 00 daily. [facility] Magnesium 2-0 Yes [id number] 400mg Take 400 [facility] Ox[facility] 420 8-24 mg by [facility] mg Tab 00:00: mouth [place] 00 daily. [facility] Magnesium 2-0 Yes [id number] 400mg Take 400 [facility] Ox[facility] 420 8-24 mg by [facility] mg Tab 00:00: mouth [place] 00 daily. [facility] Magnesium 2-0 Yes [id number] 400mg Take 400 [facility] Ox[facility] 420 8-24 mg by [facility] mg Tab 00:00: mouth [place] 00 daily. [facility] Magnesium 2021-0 Yes [id number] 400mg Take 400 [facility] Oxide 420 8-24 mg by [facility] mg Tab 00:00: mouth [place] 00 daily. [facility] Magnesium 2-0 Yes [id number] 400mg Take 400 [facility] Oxide 420 8-24 mg by [facility] of mg Tab 00:00: mouth [place] 00 daily. [facility] Magnesium 2021-0 Yes [id number] 400mg Take 400 [facility] Ox[facility] 420 8-24 mg by [facility] of mg Tab 00:00: mouth [place] 00 daily. [facility] Magnesium 2-0 Yes [id number] 400mg Take 400 [facility] Oxide 420 8-24 mg by [facility] of mg Tab 00:00: mouth [place] 00 daily. [facility] Magnesium 2-0 Yes [id number] 400mg Take 400 [facility] Oxide 420 8-24 mg by [facility] of mg Tab 00:00: mouth [place] 00 daily. [facility] Magnesium 2-0 Yes [id number] 400mg Take 400 [facility] Ox[facility] 420 8-24 mg by [facility] mg Tab 00:00: mouth [place] 00 daily. [facility] Magnesium 2-0 Yes [id number] 400mg Take 400 [facility] Oxide 420 8-24 mg by [facility] mg Tab 00:00: mouth [place] 00 daily. [facility] Magnesium 2-0 Yes [id number] 400mg Take 400 [facility] Ox[facility] 420 8-24 mg by [facility] mg Tab 00:00: mouth [place] 00 daily. [facility] Magnesium 2-0 Yes [id number] 400mg Take 400 [facility] Ox[facility] 420 8-24 mg by [facility] of mg Tab 00:00: mouth [place] 00 daily. [facility] Magnesium 2-0 Yes [id number] 400mg Take 400 [facility] Ox[facility] 420 8-24 mg by [facility] of mg Tab 00:00: mouth [place] 00 daily. [facility] Magnesium 2-0 Yes [id number] 400mg Take 400 [facility] Ox[facility] 420 8-24 mg by [facility] of mg Tab 00:00: mouth [place] 00 daily. [facility] Magnesium 2-0 Yes [id number] 400mg Take 400 [facility] Ox[facility] 420 8-24 mg by [facility] of mg Tab 00:00: mouth [place] 00 daily. [facility] Magnesium 2021-0 Yes [id number] 400mg Take 400 [facility] Ox[facility] 420 8-24 mg by [facility] of mg Tab 00:00: mouth 00 daily. [facility] Magnesium 2021-0 Yes [id number] 400mg Take 400 [facility] Ox[facility] 420 8-24 mg by [facility] of mg Tab 00:00: mouth 00 daily. [facility] Magnesium 2021-0 Yes [id number] 400mg Take 400 [facility] Ox[facility] 420 8-24 mg by [facility] mg Tab 00:00: mouth 00 daily. [facility] Magnesium 2021-0 Yes [id number] 400mg Take 400 [facility] Ox[facility] 420 8-24 mg by [facility] of mg Tab 00:00: mouth 00 daily. [facility] Magnesium 2-0 Yes [id number] 400mg Take 400 [facility] Ox[facility] 420 8-24 mg by [facility] of mg Tab 00:00: mouth [place] 00 daily. [facility] Magnesium 2-0 Yes [id number] 400mg Take 400 [facility] Ox[facility] 420 8-24 mg by [facility] of mg Tab 00:00: mouth 00 daily. [facility] Magnesium 2-0 Yes [id number] 400mg Take 400 [facility] Ox[facility] 420 8-24 mg by [facility] of mg Tab 00:00: mouth [place] 00 daily. [facility] Magnesium 2-0 Yes [id number] 400mg Take 400 [facility] Ox[facility] 420 8-24 mg by [facility] mg Tab 00:00: mouth [place] 00 daily. [facility] Magnesium 2-0 Yes [id number] 400mg Take 400 [facility] Ox[facility] 420 8-24 mg by [facility] of mg Tab 00:00: mouth [place] 00 daily. [facility] Magnesium 2-0 Yes [id number] 400mg Take 400 [facility] Ox[facility] 420 8-24 mg by [facility] of mg Tab 00:00: mouth [place] 00 daily. [facility] Magnesium 2-0 Yes [id number] 400mg Take 400 [facility] Ox[facility] 420 8-24 mg by [facility] of mg Tab 00:00: mouth [place] 00 daily. [facility] Magnesium 2-0 Yes [id number] 400mg Take 400 [facility] Ox[facility] 420 8-24 mg by [facility] of mg Tab 00:00: mouth [place] 00 daily. [facility] Magnesium 2-0 Yes [id number] 400mg Take 400 [facility] Ox[facility] 420 8-24 mg by [facility] of mg Tab 00:00: mouth [place] 00 daily. [facility] Magnesium 2-0 Yes [id number] 400mg Take 400 [facility] Ox[facility] 420 8-24 mg by [facility] of mg Tab 00:00: mouth [place] 00 daily. [facility] Magnesium 2021-0 Yes [id number] 400mg Take 400 [facility] Ox[facility] 420 8-24 mg by [facility] of mg Tab 00:00: mouth [place] 00 daily. [facility] Magnesium 2021-0 Yes [id number] 400mg Take 400 [facility] Oxide 420 8-24 mg by [facility] of mg Tab 00:00: mouth [place] 00 daily. [facility] Magnesium 2021-0 Yes [id number] 400mg Take 400 [facility] Ox[facility] 420 8-24 mg by [facility] of mg Tab 00:00: mouth [place] 00 daily. [facility] Magnesium 2021-0 Yes [id number] 400mg Take 400 [facility] Ox[facility] 420 8-24 mg by [facility] of mg Tab 00:00: mouth [place] 00 daily. [facility] Magnesium 2-0 Yes [id number] 400mg Take 400 [facility] Ox[facility] 420 8-24 mg by [facility] of mg Tab 00:00: mouth [place] 00 daily. [facility] Magnesium 2-0 Yes [id number] 400mg Take 400 [facility] Ox[facility] 420 8-24 mg by [facility] of mg Tab 00:00: mouth [place] 00 daily. [facility] Magnesium 2-0 Yes [id number] 400mg Take 400 [facility] Oxide 420 8-24 mg by [facility] of mg Tab 00:00: mouth [place] 00 daily. [facility] Magnesium 2-0 Yes [id number] 400mg Take 400 [facility] Oxide 420 8-24 mg by [facility] of mg Tab 00:00: mouth [place] 00 daily. [facility] Magnesium 2-0 Yes [id number] 400mg Take 400 [facility] Oxide 420 8-24 mg by [facility] of mg Tab 00:00: mouth [place] 00 daily. [facility] Magnesium 2-0 Yes [id number] 400mg Take 400 [facility] Oxide 420 8-24 mg by [facility] of mg Tab 00:00: mouth [place] 00 daily. [facility] Magnesium 2021-0 Yes [id number] 400mg Take 400 [facility] Oxide 420 8-24 mg by [facility] of mg Tab 00:00: mouth 00 daily. [facility] Magnesium 2021-0 Yes [id number] 400mg Take 400 [facility] Oxide 420 8-24 mg by [facility] of mg Tab 00:00: mouth [place] 00 daily. [facility] Magnesium 2021-0 Yes [id number] 400mg Take 400 [facility] Oxide 420 8-24 mg by [facility] of mg Tab 00:00: mouth 00 daily. [facility] Magnesium 2021-0 Yes [id number] 400mg Take 400 [facility] Oxide 420 8-24 mg by [facility] of mg Tab 00:00: mouth 00 daily. [facility] Magnesium 2021-0 Yes [id number] 400mg Take 400 [facility] Oxide 420 8-24 mg by [facility] of mg Tab 00:00: mouth 00 daily. [facility] Magnesium 2021-0 Yes [id number] 400mg Take 400 [facility] Oxide 420 8-24 mg by [facility] of mg Tab 00:00: mouth 00 daily. [facility] acetaminoph 2022- No 2745 1{tbl} Take 1 [facility] en-codeine 8-24 10-21 tablet by it[facility] of (TYLENOL-CO 00:00: 00:00 [place] DEINE #3[place] 00 :00 every 6 Medical 300-30 mg (six) Branch tablet hours as needed for Pain (scale 7-10). Indication s: acute pain, chronic pain triamcinolo 2021-0 Yes [id number] Apply to [facility] ne 8-10 area(s) 2 ity of acetonide 00:00: (two) [place] 0.1 % cream 00 times Medical daily. Branch Clobetasol 0 Yes [id number] Apply to [facility] Propionate 8-10 area(s) 2 ity of 0.05 % 00:00: (two) [place] lotion 00 times Medical daily as Branch needed for Rash or Itching. triamcinolo 2021-0 Yes [id number] Apply to [facility] ne 8-10 area(s) 2 ity of acetonide 00:00: (two) [place] 0.1 % cream 00 times Medical daily. Branch Clobetasol 2021-0 Yes [id number] Apply to [facility] Propionate 8-10 area(s) 2 ity of 0.05 % 00:00: (two) [place] lotion 00 times Medical daily as Branch needed for Rash or Itching. triamcinolo 2022-0 Yes [id number] Apply to [facility] ne 8-10 area(s) 2 ity of acetonide 00:00: (two) [place] 0.1 % cream 00 times Medical daily. Branch Clobetasol 2022-0 Yes [id number] Apply to [facility] Propionate 8-10 area(s) 2 ity of 0.05 % 00:00: (two) [place] lotion 00 times Medical daily as Branch needed for Rash or Itching. triamcinolo 2022-0 Yes [id number] Apply to [facility] ne 8-10 area(s) 2 ity of acetonide 00:00: (two) [place] 0.1 % cream 00 times Medical daily. Branch Clobetasol 2022-0 Yes [id number] Apply to [facility] Propionate 8-10 area(s) 2 ity of 0.05 % 00:00: (two) [place] lotion 00 times Medical daily as Branch needed for Rash or Itching. triamcinolo 2022-0 Yes [id number] Apply to [facility] ne 8-10 area(s) 2 ity of acetonide 00:00: (two) [place] 0.1 % cream 00 times Medical daily. Branch Clobetasol 2022-0 Yes [id number] Apply to [facility] Propionate 8-10 area(s) 2 ity of 0.05 % 00:00: (two) [place] lotion 00 times Medical daily as Branch needed for Rash or Itching. triamcinolo 2022-0 Yes [id number] Apply to [facility] ne 8-10 area(s) 2 ity of acetonide 00:00: (two) [place] 0.1 % cream 00 times Medical daily. Branch Clobetasol 2022-0 Yes [id number] Apply to [facility] Propionate 8-10 area(s) 2 ity of 0.05 % 00:00: (two) [place] lotion 00 times Medical daily as Branch needed for Rash or Itching. triamcinolo 2022-0 Yes [id number] Apply to [facility] ne 8-10 area(s) 2 ity of acetonide 00:00: (two) [place] 0.1 % cream 00 times Medical daily. Branch Clobetasol 2022-0 Yes [id number] Apply to [facility] Propionate 8-10 area(s) 2 ity of 0.05 % 00:00: (two) [place] lotion 00 times Medical daily as Branch needed for Rash or Itching. triamcinolo 2022-0 Yes [id number] Apply to [facility] ne 8-10 area(s) 2 ity of acetonide 00:00: (two) [place] 0.1 % cream 00 times Medical daily. Branch Clobetasol 2022-0 Yes [id number] Apply to [facility] Propionate 8-10 area(s) 2 ity of 0.05 % 00:00: (two) [place] lotion 00 times Medical daily as Branch needed for Rash or Itching. triamcinolo 2022-0 Yes [id number] Apply to [facility] ne 8-10 area(s) 2 ity of acetonide 00:00: (two) [place] 0.1 % cream 00 times Medical daily. Branch Clobetasol 2022-0 Yes [id number] Apply to [facility] Propionate 8-10 area(s) 2 ity of 0.05 % 00:00: (two) [place] lotion 00 times Medical daily as Branch needed for Rash or Itching. triamcinolo 2022-0 Yes [id number] Apply to [facility] ne 8-10 area(s) 2 ity of acetonide 00:00: (two) [place] 0.1 % cream 00 times Medical daily. Branch Clobetasol 2022-0 Yes [id number] Apply to [facility] Propionate 8-10 area(s) 2 ity of 0.05 % 00:00: (two) [place] lotion 00 times Medical daily as Branch needed for Rash or Itching. triamcinolo 2022-0 Yes [id number] Apply to [facility] ne 8-10 area(s) 2 ity of acetonide 00:00: (two) [place] 0.1 % cream 00 times Medical daily. Branch Clobetasol 2022-0 Yes [id number] Apply to [facility] Propionate 8-10 area(s) 2 ity of 0.05 % 00:00: (two) [place] lotion 00 times Medical daily as Branch needed for Rash or Itching. triamcinolo 2022-0 Yes [id number] Apply to [facility] ne 8-10 area(s) 2 ity of acetonide 00:00: (two) [place] 0.1 % cream 00 times Medical daily. Branch Clobetasol 2022-0 Yes [id number] Apply to [facility] Propionate 8-10 area(s) 2 ity of 0.05 % 00:00: (two) [place] lotion 00 times Medical daily as Branch needed for Rash or Itching. triamcinolo 2022-0 Yes [id number] Apply to [facility] ne 8-10 area(s) 2 ity of acetonide 00:00: (two) [place] 0.1 % cream 00 times Medical daily. Branch Clobetasol 2022-0 Yes [id number] Apply to [facility] Propionate 8-10 area(s) 2 ity of 0.05 % 00:00: (two) [place] lotion 00 times Medical daily as Branch needed for Rash or Itching. triamcinolo 2022-0 Yes [id number] Apply to [facility] ne 8-10 area(s) 2 ity of acetonide 00:00: (two) [place] 0.1 % cream 00 times Medical daily. Branch Clobetasol 2022-0 Yes [id number] Apply to [facility] Propionate 8-10 area(s) 2 ity of 0.05 % 00:00: (two) [place] lotion 00 times Medical daily as Branch needed for Rash or Itching. triamcinolo 2022-0 Yes [id number] Apply to [facility] ne 8-10 area(s) 2 ity of acetonide 00:00: (two) [place] 0.1 % cream 00 times Medical daily. Branch Clobetasol 2022-0 Yes [id number] Apply to [facility] Propionate 8-10 area(s) 2 ity of 0.05 % 00:00: (two) [place] lotion 00 times Medical daily as Branch needed for Rash or Itching. triamcinolo 2022-0 Yes [id number] Apply to [facility] ne 8-10 area(s) 2 ity of acetonide 00:00: (two) [place] 0.1 % cream 00 times Medical daily. Branch Clobetasol 2022-0 Yes [id number] Apply to [facility] Propionate 8-10 area(s) 2 ity of 0.05 % 00:00: (two) [place] lotion 00 times Medical daily as Branch needed for Rash or Itching. triamcinolo 2022-0 Yes [id number] Apply to [facility] ne 8-10 area(s) 2 ity of acetonide 00:00: (two) [place] 0.1 % cream 00 times Medical daily. Branch Clobetasol 2022-0 Yes [id number] Apply to [facility] Propionate 8-10 area(s) 2 ity of 0.05 % 00:00: (two) [place] lotion 00 times Medical daily as Branch needed for Rash or Itching. triamcinolo 2022-0 Yes [id number] Apply to [facility] ne 8-10 area(s) 2 ity of acetonide 00:00: (two) [place] 0.1 % cream 00 times Medical daily. Branch Clobetasol 2022-0 Yes [id number] Apply to [facility] Propionate 8-10 area(s) 2 ity of 0.05 % 00:00: (two) [place] lotion 00 times Medical daily as Branch needed for Rash or Itching. triamcinolo 2022-0 Yes [id number] Apply to [facility] ne 8-10 area(s) 2 ity of acetonide 00:00: (two) [place] 0.1 % cream 00 times Medical daily. Branch Clobetasol 2022-0 Yes [id number] Apply to [facility] Propionate 8-10 area(s) 2 ity of 0.05 % 00:00: (two) [place] lotion 00 times Medical daily as Branch needed for Rash or Itching. triamcinolo 2022-0 Yes [id number] Apply to [facility] ne 8-10 area(s) 2 ity of acetonide 00:00: (two) [place] 0.1 % cream 00 times Medical daily. Branch Clobetasol 2022-0 Yes [id number] Apply to [facility] Propionate 8-10 area(s) 2 ity of 0.05 % 00:00: (two) [place] lotion 00 times Medical daily as Branch needed for Rash or Itching. triamcinolo 2022-0 Yes [id number] Apply to [facility] ne 8-10 area(s) 2 ity of acetonide 00:00: (two) [place] 0.1 % cream 00 times Medical daily. Branch Clobetasol 2022-0 Yes [id number] Apply to [facility] Propionate 8-10 area(s) 2 ity of 0.05 % 00:00: (two) [place] lotion 00 times Medical daily as Branch needed for Rash or Itching. triamcinolo 2022-0 Yes [id number] Apply to [facility] ne 8-10 area(s) 2 ity of acetonide 00:00: (two) [place] 0.1 % cream 00 times Medical daily. Branch Clobetasol 2022-0 Yes [id number] Apply to [facility] Propionate 8-10 area(s) 2 ity of 0.05 % 00:00: (two) [place] lotion 00 times Medical daily as Branch needed for Rash or Itching. triamcinolo 2022-0 Yes [id number] Apply to [facility] ne 8-10 area(s) 2 ity of acetonide 00:00: (two) [place] 0.1 % cream 00 times Medical daily. Branch Clobetasol 2022-0 Yes [id number] Apply to [facility] Propionate 8-10 area(s) 2 ity of 0.05 % 00:00: (two) [place] lotion 00 times Medical daily as Branch needed for Rash or Itching. triamcinolo 2022-0 Yes [id number] Apply to [facility] ne 8-10 area(s) 2 ity of acetonide 00:00: (two) [place] 0.1 % cream 00 times Medical daily. Branch Clobetasol 2022-0 Yes [id number] Apply to [facility] Propionate 8-10 area(s) 2 ity of 0.05 % 00:00: (two) [place] lotion 00 times Medical daily as Branch needed for Rash or Itching. triamcinolo 2022-0 Yes [id number] Apply to [facility] ne 8-10 area(s) 2 ity of acetonide 00:00: (two) [place] 0.1 % cream 00 times Medical daily. Branch Clobetasol 2022-0 Yes [id number] Apply to [facility] Propionate 8-10 area(s) 2 ity of 0.05 % 00:00: (two) [place] lotion 00 times Medical daily as Branch needed for Rash or Itching. triamcinolo 2022-0 Yes [id number] Apply to [facility] ne 8-10 area(s) 2 ity of acetonide 00:00: (two) [place] 0.1 % cream 00 times Medical daily. Branch Clobetasol 2022-0 Yes [id number] Apply to [facility] Propionate 8-10 area(s) 2 ity of 0.05 % 00:00: (two) [place] lotion 00 times Medical daily as Branch needed for Rash or Itching. triamcinolo 2022-0 Yes [id number] Apply to [facility] ne 8-10 area(s) 2 ity of acetonide 00:00: (two) [place] 0.1 % cream 00 times Medical daily. Branch Clobetasol 2022-0 Yes [id number] Apply to [facility] Propionate 8-10 area(s) 2 ity of 0.05 % 00:00: (two) [place] lotion 00 times Medical daily as Branch needed for Rash or Itching. triamcinolo 2022-0 Yes [id number] Apply to [facility] ne 8-10 area(s) 2 ity of acetonide 00:00: (two) [place] 0.1 % cream 00 times Medical daily. Branch Clobetasol 2022-0 Yes [id number] Apply to [facility] Propionate 8-10 area(s) 2 ity of 0.05 % 00:00: (two) [place] lotion 00 times Medical daily as Branch needed for Rash or Itching. triamcinolo 2022-0 Yes [id number] Apply to [facility] ne 8-10 area(s) 2 ity of acetonide 00:00: (two) [place] 0.1 % cream 00 times Medical daily. Branch Clobetasol 2022-0 Yes [id number] Apply to [facility] Propionate 8-10 area(s) 2 ity of 0.05 % 00:00: (two) [place] lotion 00 times Medical daily as Branch needed for Rash or Itching. triamcinolo 2022-0 Yes [id number] Apply to [facility] ne 8-10 area(s) 2 ity of acetonide 00:00: (two) [place] 0.1 % cream 00 times Medical daily. Branch Clobetasol 2022-0 Yes [id number] Apply to [facility] Propionate 8-10 area(s) 2 ity of 0.05 % 00:00: (two) [place] lotion 00 times Medical daily as Branch needed for Rash or Itching. triamcinolo 2022-0 Yes [id number] Apply to [facility] ne 8-10 area(s) 2 ity of acetonide 00:00: (two) [place] 0.1 % cream 00 times Medical daily. Branch Clobetasol 2022-0 Yes [id number] Apply to [facility] Propionate 8-10 area(s) 2 ity of 0.05 % 00:00: (two) [place] lotion 00 times Medical daily as Branch needed for Rash or Itching. triamcinolo 2022-0 Yes [id number] Apply to [facility] ne 8-10 area(s) 2 ity of acetonide 00:00: (two) [place] 0.1 % cream 00 times Medical daily. Branch Clobetasol 2022-0 Yes [id number] Apply to [facility] Propionate 8-10 area(s) 2 ity of 0.05 % 00:00: (two) [place] lotion 00 times Medical daily as Branch needed for Rash or Itching. triamcinolo 2022-0 Yes [id number] Apply to [facility] ne 8-10 area(s) 2 ity of acetonide 00:00: (two) [place] 0.1 % cream 00 times Medical daily. Branch Clobetasol 2022-0 Yes [id number] Apply to [facility] Propionate 8-10 area(s) 2 ity of 0.05 % 00:00: (two) [place] lotion 00 times Medical daily as Branch needed for Rash or Itching. triamcinolo 2022-0 Yes [id number] Apply to [facility] ne 8-10 area(s) 2 ity of acetonide 00:00: (two) [place] 0.1 % cream 00 times Medical daily. Branch Clobetasol 2022-0 Yes [id number] Apply to [facility] Propionate 8-10 area(s) 2 ity of 0.05 % 00:00: (two) [place] lotion 00 times Medical daily as Branch needed for Rash or Itching. triamcinolo 2022-0 Yes [id number] Apply to [facility] ne 8-10 area(s) 2 ity of acetonide 00:00: (two) [place] 0.1 % cream 00 times Medical daily. Branch Clobetasol 2022-0 Yes [id number] Apply to [facility] Propionate 8-10 area(s) 2 ity of 0.05 % 00:00: (two) [place] lotion 00 times Medical daily as Branch needed for Rash or Itching. triamcinolo 2022-0 Yes [id number] Apply to [facility] ne 8-10 area(s) 2 ity of acetonide 00:00: (two) [place] 0.1 % cream 00 times Medical daily. Branch Clobetasol 2022-0 Yes [id number] Apply to [facility] Propionate 8-10 area(s) 2 ity of 0.05 % 00:00: (two) [place] lotion 00 times Medical daily as Branch needed for Rash or Itching. triamcinolo 2022-0 Yes [id number] Apply to [facility] ne 8-10 area(s) 2 ity of acetonide 00:00: (two) [place] 0.1 % cream 00 times Medical daily. Branch Clobetasol 2022-0 Yes [id number] Apply to [facility] Propionate 8-10 area(s) 2 ity of 0.05 % 00:00: (two) [place] lotion 00 times Medical daily as Branch needed for Rash or Itching. triamcinolo 2022-0 Yes [id number] Apply to [facility] ne 8-10 area(s) 2 ity of acetonide 00:00: (two) [place] 0.1 % cream 00 times Medical daily. Branch Clobetasol 2022-0 Yes [id number] Apply to [facility] Propionate 8-10 area(s) 2 ity of 0.05 % 00:00: (two) [place] lotion 00 times Medical daily as Branch needed for Rash or Itching. triamcinolo 2022-0 Yes [id number] Apply to [facility] ne 8-10 area(s) 2 ity of acetonide 00:00: (two) [place] 0.1 % cream 00 times Medical daily. Branch Clobetasol 2022-0 Yes [id number] Apply to [facility] Propionate 8-10 area(s) 2 ity of 0.05 % 00:00: (two) [place] lotion 00 times Medical daily as Branch needed for Rash or Itching. triamcinolo 2022-0 Yes [id number] Apply to [facility] ne 8-10 area(s) 2 ity of acetonide 00:00: (two) [place] 0.1 % cream 00 times Medical daily. Branch Clobetasol 2022-0 Yes [id number] Apply to [facility] Propionate 8-10 area(s) 2 ity of 0.05 % 00:00: (two) [place] lotion 00 times Medical daily as Branch needed for Rash or Itching. triamcinolo 2022-0 Yes [id number] Apply to [facility] ne 8-10 area(s) 2 ity of acetonide 00:00: (two) [place] 0.1 % cream 00 times Medical daily. Branch Clobetasol 2022-0 Yes [id number] Apply to [facility] Propionate 8-10 area(s) 2 ity of 0.05 % 00:00: (two) [place] lotion 00 times Medical daily as Branch needed for Rash or Itching. triamcinolo 2022-0 Yes [id number] Apply to [facility] ne 8-10 area(s) 2 ity of acetonide 00:00: (two) [place] 0.1 % cream 00 times Medical daily. Branch Clobetasol 2022-0 Yes [id number] Apply to [facility] Propionate 8-10 area(s) 2 ity of 0.05 % 00:00: (two) [place] lotion 00 times Medical daily as Branch needed for Rash or Itching. triamcinolo 2022-0 Yes [id number] Apply to [facility] ne 8-10 area(s) 2 ity of acetonide 00:00: (two) [place] 0.1 % cream 00 times Medical daily. Branch Clobetasol 2022-0 Yes [id number] Apply to [facility] Propionate 8-10 area(s) 2 ity of 0.05 % 00:00: (two) [place] lotion 00 times Medical daily as Branch needed for Rash or Itching. triamcinolo 2022-0 Yes [id number] Apply to [facility] ne 8-10 area(s) 2 ity of acetonide 00:00: (two) [place] 0.1 % cream 00 times Medical daily. Branch Clobetasol 2022-0 Yes [id number] Apply to [facility] Propionate 8-10 area(s) 2 ity of 0.05 % 00:00: (two) [place] lotion 00 times Medical daily as Branch needed for Rash or Itching. triamcinolo 2022-0 Yes [id number] Apply to [facility] ne 8-10 area(s) 2 ity of acetonide 00:00: (two) [place] 0.1 % cream 00 times Medical daily. Branch Clobetasol 2022-0 Yes [id number] Apply to [facility] Propionate 8-10 area(s) 2 ity of 0.05 % 00:00: (two) [place] lotion 00 times Medical daily as Branch needed for Rash or Itching. triamcinolo 2022-0 Yes [id number] Apply to [facility] ne 8-10 area(s) 2 ity of acetonide 00:00: (two) [place] 0.1 % cream 00 times Medical daily. Branch Clobetasol 2022-0 Yes [id number] Apply to [facility] Propionate 8-10 area(s) 2 ity of 0.05 % 00:00: (two) [place] lotion 00 times Medical daily as Branch needed for Rash or Itching. triamcinolo 2022-0 Yes [id number] Apply to [facility] ne 8-10 area(s) 2 ity of acetonide 00:00: (two) [place] 0.1 % cream 00 times Medical daily. Branch Clobetasol 2022-0 Yes [id number] Apply to [facility] Propionate 8-10 area(s) 2 ity of 0.05 % 00:00: (two) [place] lotion 00 times Medical daily as Branch needed for Rash or Itching. triamcinolo 2022-0 Yes [id number] Apply to [facility] ne 8-10 area(s) 2 ity of acetonide 00:00: (two) [place] 0.1 % cream 00 times Medical daily. Branch Clobetasol 2022-0 Yes [id number] Apply to [facility] Propionate 8-10 area(s) 2 ity of 0.05 % 00:00: (two) [place] lotion 00 times Medical daily as Branch needed for Rash or Itching. triamcinolo 2022-0 Yes [id number] Apply to [facility] ne 8-10 area(s) 2 ity of acetonide 00:00: (two) [place] 0.1 % cream 00 times Medical daily. Branch Clobetasol 2022-0 Yes [id number] Apply to [facility] Propionate 8-10 area(s) 2 ity of 0.05 % 00:00: (two) [place] lotion 00 times Medical daily as Branch needed for Rash or Itching. triamcinolo 2022-0 Yes [id number] Apply to [facility] ne 8-10 area(s) 2 ity of acetonide 00:00: (two) [place] 0.1 % cream 00 times Medical daily. Branch Clobetasol 2022-0 Yes [id number] Apply to [facility] Propionate 8-10 area(s) 2 ity of 0.05 % 00:00: (two) [place] lotion 00 times Medical daily as Branch needed for Rash or Itching. triamcinolo 2022-0 Yes [id number] Apply to [facility] ne 8-10 area(s) 2 ity of acetonide 00:00: (two) [place] 0.1 % cream 00 times Medical daily. Branch Clobetasol 2022-0 Yes [id number] Apply to [facility] Propionate 8-10 area(s) 2 ity of 0.05 % 00:00: (two) [place] lotion 00 times Medical daily as Branch needed for Rash or Itching. triamcinolo 2022-0 Yes [id number] Apply to [facility] ne 8-10 area(s) 2 ity of acetonide 00:00: (two) [place] 0.1 % cream 00 times Medical daily. Branch Clobetasol 2022-0 Yes [id number] Apply to [facility] Propionate 8-10 area(s) 2 ity of 0.05 % 00:00: (two) [place] lotion 00 times Medical daily as Branch needed for Rash or Itching. triamcinolo 2022-0 Yes [id number] Apply to [facility] ne 8-10 area(s) 2 ity of acetonide 00:00: (two) [place] 0.1 % cream 00 times Medical daily. Branch Clobetasol 2022-0 Yes [id number] Apply to [facility] Propionate 8-10 area(s) 2 ity of 0.05 % 00:00: (two) [place] lotion 00 times Medical daily as Branch needed for Rash or Itching. triamcinolo 2022-0 Yes [id number] Apply to [facility] ne 8-10 area(s) 2 ity of acetonide 00:00: (two) [place] 0.1 % cream 00 times Medical daily. Branch Clobetasol 2022-0 Yes [id number] Apply to [facility] Propionate 8-10 area(s) 2 ity of 0.05 % 00:00: (two) [place] lotion 00 times Medical daily as Branch needed for Rash or Itching. triamcinolo 2022-0 Yes [id number] Apply to [facility] ne 8-10 area(s) 2 ity of acetonide 00:00: (two) [place] 0.1 % cream 00 times Medical daily. Branch Clobetasol 2022-0 Yes [id number] Apply to [facility] Propionate 8-10 area(s) 2 ity of 0.05 % 00:00: (two) [place] lotion 00 times Medical daily as Branch needed for Rash or Itching. triamcinolo 2022-0 Yes [id number] Apply to [facility] ne 8-10 area(s) 2 ity of acetonide 00:00: (two) [place] 0.1 % cream 00 times Medical daily. Branch Clobetasol 2022-0 Yes [id number] Apply to [facility] Propionate 8-10 area(s) 2 ity of 0.05 % 00:00: (two) [place] lotion 00 times Medical daily as Branch needed for Rash or Itching. triamcinolo 2022-0 Yes [id number] Apply to [facility] ne 8-10 area(s) 2 ity of acetonide 00:00: (two) [place] 0.1 % cream 00 times Medical daily. Branch Clobetasol 2022-0 Yes [id number] Apply to [facility] Propionate 8-10 area(s) 2 ity of 0.05 % 00:00: (two) [place] lotion 00 times Medical daily as Branch needed for Rash or Itching. triamcinolo 2022-0 Yes [id number] Apply to [facility] ne 8-10 area(s) 2 ity of acetonide 00:00: (two) [place] 0.1 % cream 00 times Medical daily. Branch Clobetasol 2022-0 Yes [id number] Apply to [facility] Propionate 8-10 area(s) 2 ity of 0.05 % 00:00: (two) [place] lotion 00 times Medical daily as Branch needed for Rash or Itching. triamcinolo 2022-0 Yes [id number] Apply to [facility] ne 8-10 area(s) 2 ity of acetonide 00:00: (two) [place] 0.1 % cream 00 times Medical daily. Branch Clobetasol 2022-0 Yes [id number] Apply to [facility] Propionate 8-10 area(s) 2 ity of 0.05 % 00:00: (two) [place] lotion 00 times Medical daily as Branch needed for Rash or Itching. triamcinolo 2022-0 Yes [id number] Apply to [facility] ne 8-10 area(s) 2 ity of acetonide 00:00: (two) [place] 0.1 % cream 00 times Medical daily. Branch Clobetasol 2022-0 Yes [id number] Apply to [facility] Propionate 8-10 area(s) 2 ity of 0.05 % 00:00: (two) [place] lotion 00 times Medical daily as Branch needed for Rash or Itching. triamcinolo 2022-0 Yes [id number] Apply to [facility] ne 8-10 area(s) 2 ity of acetonide 00:00: (two) [place] 0.1 % cream 00 times Medical daily. Branch Clobetasol 2022-0 Yes [id number] Apply to [facility] Propionate 8-10 area(s) 2 ity of 0.05 % 00:00: (two) [place] lotion 00 times Medical daily as Branch needed for Rash or Itching. triamcinolo 2022-0 Yes [id number] Apply to [facility] ne 8-10 area(s) 2 ity of acetonide 00:00: (two) [place] 0.1 % cream 00 times Medical daily. Branch Clobetasol 2022-0 Yes [id number] Apply to [facility] Propionate 8-10 area(s) 2 ity of 0.05 % 00:00: (two) [place] lotion 00 times Medical daily as Branch needed for Rash or Itching. triamcinolo 2022-0 Yes [id number] Apply to [facility] ne 8-10 area(s) 2 ity of acetonide 00:00: (two) [place] 0.1 % cream 00 times Medical daily. Branch Clobetasol 2022-0 Yes [id number] Apply to [facility] Propionate 8-10 area(s) 2 ity of 0.05 % 00:00: (two) [place] lotion 00 times Medical daily as Branch needed for Rash or Itching. triamcinolo 2022-0 Yes [id number] Apply to [facility] ne 8-10 area(s) 2 ity of acetonide 00:00: (two) [place] 0.1 % cream 00 times Medical daily. Branch Clobetasol 2022-0 Yes [id number] Apply to [facility] Propionate 8-10 area(s) 2 ity of 0.05 % 00:00: (two) [place] lotion 00 times Medical daily as Branch needed for Rash or Itching. triamcinolo 2022-0 Yes [id number] Apply to [facility] ne 8-10 area(s) 2 ity of acetonide 00:00: (two) [place] 0.1 % cream 00 times Medical daily. Branch Clobetasol 2022-0 Yes [id number] Apply to [facility] Propionate 8-10 area(s) 2 ity of 0.05 % 00:00: (two) [place] lotion 00 times Medical daily as Branch needed for Rash or Itching. triamcinolo 2022-0 Yes [id number] Apply to [facility] ne 8-10 area(s) 2 ity of acetonide 00:00: (two) [place] 0.1 % cream 00 times Medical daily. Branch Clobetasol 2022-0 Yes [id number] Apply to [facility] Propionate 8-10 area(s) 2 ity of 0.05 % 00:00: (two) [place] lotion 00 times Medical daily as Branch needed for Rash or Itching. triamcinolo 2022-0 Yes [id number] Apply to [facility] ne 8-10 area(s) 2 ity of acetonide 00:00: (two) [place] 0.1 % cream 00 times Medical daily. Branch Clobetasol 2022-0 Yes [id number] Apply to [facility] Propionate 8-10 area(s) 2 ity of 0.05 % 00:00: (two) [place] lotion 00 times Medical daily as Branch needed for Rash or Itching. triamcinolo 2022-0 Yes [id number] Apply to [facility] ne 8-10 area(s) 2 ity of acetonide 00:00: (two) [place] 0.1 % cream 00 times Medical daily. Branch Clobetasol 2022-0 Yes [id number] Apply to [facility] Propionate 8-10 area(s) 2 ity of 0.05 % 00:00: (two) [place] lotion 00 times Medical daily as Branch needed for Rash or Itching. triamcinolo 2022-0 Yes [id number] Apply to [facility] ne 8-10 area(s) 2 ity of acetonide 00:00: (two) [place] 0.1 % cream 00 times Medical daily. Branch Clobetasol 2022-0 Yes [id number] Apply to [facility] Propionate 8-10 area(s) 2 ity of 0.05 % 00:00: (two) [place] lotion 00 times Medical daily as Branch needed for Rash or Itching. triamcinolo 2022-0 Yes [id number] Apply to [facility] ne 8-10 area(s) 2 ity of acetonide 00:00: (two) [place] 0.1 % cream 00 times Medical daily. Branch Clobetasol 2022-0 Yes [id number] Apply to [facility] Propionate 8-10 area(s) 2 ity of 0.05 % 00:00: (two) [place] lotion 00 times Medical daily as Branch needed for Rash or Itching. triamcinolo 2022-0 Yes [id number] Apply to [facility] ne 8-10 area(s) 2 ity of acetonide 00:00: (two) [place] 0.1 % cream 00 times Medical daily. Branch Clobetasol 2022-0 Yes [id number] Apply to [facility] Propionate 8-10 area(s) 2 ity of 0.05 % 00:00: (two) [place] lotion 00 times Medical daily as Branch needed for Rash or Itching. triamcinolo 2022-0 Yes [id number] Apply to [facility] ne 8-10 area(s) 2 ity of acetonide 00:00: (two) [place] 0.1 % cream 00 times Medical daily. Branch Clobetasol 2022-0 Yes [id number] Apply to [facility] Propionate 8-10 area(s) 2 ity of 0.05 % 00:00: (two) [place] lotion 00 times Medical daily as Branch needed for Rash or Itching. triamcinolo 2022-0 Yes [id number] Apply to [facility] ne 8-10 area(s) 2 ity of acetonide 00:00: (two) [place] 0.1 % cream 00 times Medical daily. Branch Clobetasol 2022-0 Yes [id number] Apply to [facility] Propionate 8-10 area(s) 2 ity of 0.05 % 00:00: (two) [place] lotion 00 times Medical daily as Branch needed for Rash or Itching. triamcinolo 2022-0 Yes [id number] Apply to [facility] ne 8-10 area(s) 2 ity of acetonide 00:00: (two) [place] 0.1 % cream 00 times Medical daily. Branch Clobetasol 2022-0 Yes [id number] Apply to [facility] Propionate 8-10 area(s) 2 ity of 0.05 % 00:00: (two) [place] lotion 00 times Medical daily as Branch needed for Rash or Itching. triamcinolo 2022-0 Yes [id number] Apply to [facility] ne 8-10 area(s) 2 ity of acetonide 00:00: (two) [place] 0.1 % cream 00 times Medical daily. Branch Clobetasol 2022-0 Yes [id number] Apply to [facility] Propionate 8-10 area(s) 2 ity of 0.05 % 00:00: (two) [place] lotion 00 times Medical daily as Branch needed for Rash or Itching. triamcinolo 2022-0 Yes [id number] Apply to [facility] ne 8-10 area(s) 2 ity of acetonide 00:00: (two) [place] 0.1 % cream 00 times Medical daily. Branch Clobetasol 2022-0 Yes [id number] Apply to [facility] Propionate 8-10 area(s) 2 ity of 0.05 % 00:00: (two) [place] lotion 00 times Medical daily as Branch needed for Rash or Itching. triamcinolo 2022-0 Yes [id number] Apply to [facility] ne 8-10 area(s) 2 ity of acetonide 00:00: (two) [place] 0.1 % cream 00 times Medical daily. Branch Clobetasol 2-0 Yes [id number] Apply to [facility] Propionate 8-10 area(s) 2 ity of 0.05 % 00:00: (two) [place] lotion 00 times Medical daily as Branch needed for Rash or Itching. triamcinolo 2-0 Yes [id number] Apply to [facility] ne 8-10 area(s) 2 ity of acetonide 00:00: (two) [place] 0.1 % cream 00 times Medical daily. Branch Clobetasol 2-0 Yes [id number] Apply to [facility] Propionate 8-10 area(s) 2 ity of 0.05 % 00:00: (two) [place] lotion 00 times Medical daily as Branch needed for Rash or Itching. triamcinolo 2022-0 Yes [id number] Apply to [facility] ne 8-10 area(s) 2 ity of acetonide 00:00: (two) [place] 0.1 % cream 00 times Medical daily. Branch Clobetasol 2022-0 Yes [id number] Apply to [facility] Propionate 8-10 area(s) 2 ity of 0.05 % 00:00: (two) [place] lotion 00 times Medical daily as Branch needed for Rash or Itching. triamcinolo 2022-0 2023- No [id number] Apply to [facility] ne 8-10 07-18 area(s) 2 ity of acetonide 00:00: 00:00 (two) [place] 0.1 % cream 00 :00 times Medical daily. Branch Clobetasol 2022- No [id number] Apply to [facility] Propionate 10-11 area(s) 2 ity of 0.05 % 00:00: 00:00 (two) [place] lotion 00 :00 times Medical daily as Branch needed for Rash or Itching. triamcinolo 2022- No [id number] Apply to [facility] ne 10-11 area(s) 2 ity of acetonide 00:00: 00:00 (two) [place] 0.1 % cream 00 :00 times Medical daily. Branch Clobetasol 2022- No [id number] Apply to [facility] Propionate 10-11 area(s) 2 ity of 0.05 % 00:00: 00:00 (two) [place] lotion 00 :00 times Medical daily as Branch needed for Rash or Itching. fluticasone Yes [id number] 2{spray Use 2 [facility] propionate 8-05 } Sprays in ity of 50 00:00: each [place] mcg/actuati 00 nostril in Me dical on nasal the Branch spray morning. fluticasone Yes [id number] 2{spray Use 2 [facility] propionate 8-05 } Sprays in ity of 50 00:00: each [place] mcg/actuati 00 nostril in Me dical on nasal the Branch spray morning. fluticasone Yes [id number] 2{spray Use 2 [facility] propionate 8-05 } Sprays in ity of 50 00:00: each [place] mcg/actuati 00 nostril in Me dical on nasal the Branch spray morning. fluticasone 0 Yes [id number] 2{spray Use 2 [facility] propionate 8-05 } Sprays in ity of 50 00:00: each [place] mcg/actuati 00 nostril in Me dical on nasal the Branch spray morning. fluticasone 2021-0 Yes [id number] 2{spray Use 2 [facility] propionate 8-05 } Sprays in ity of 50 00:00: each [place] mcg/actuati 00 nostril in Me dical on nasal the Branch spray morning. fluticasone 0 Yes [id number] 2{spray Use 2 [facility] propionate 8-05 } Sprays in ity of 50 00:00: each [place] mcg/actuati 00 nostril in Me dical on nasal the Branch spray morning. fluticasone 2021-0 Yes [id number] 2{spray Use 2 [facility] propionate 8-05 } Sprays in ity of 50 00:00: each [place] mcg/actuati 00 nostril in Me dical on nasal the Branch spray morning. fluticasone 2021-0 Yes [id number] 2{spray Use 2 [facility] propionate 8-05 } Sprays in ity of 50 00:00: each [place] mcg/actuati 00 nostril in Me dical on nasal the Branch spray morning. fluticasone 2021-0 Yes [id number] 2{spray Use 2 [facility] propionate 8-05 } Sprays in ity of 50 00:00: each [place] mcg/actuati 00 nostril in Me dical on nasal the Branch spray morning. fluticasone 2021-0 Yes [id number] 2{spray Use 2 [facility] propionate 8-05 } Sprays in ity of 50 00:00: each [place] mcg/actuati 00 nostril in Me dical on nasal the Branch spray morning. fluticasone 2021-0 Yes [id number] 2{spray Use 2 [facility] propionate 8-05 } Sprays in ity of 50 00:00: each [place] mcg/actuati 00 nostril in Me dical on nasal the Branch spray morning. fluticasone 2021-0 Yes [id number] 2{spray Use 2 [facility] propionate 8-05 } Sprays in ity of 50 00:00: each [place] mcg/actuati 00 nostril in Me dical on nasal the Branch spray morning. fluticasone 2021-0 Yes [id number] 2{spray Use 2 [facility] propionate 8-05 } Sprays in ity of 50 00:00: each [place] mcg/actuati 00 nostril in Me dical on nasal the Branch spray morning. fluticasone 2021-0 Yes [id number] 2{spray Use 2 [facility] propionate 8-05 } Sprays in ity of 50 00:00: each [place] mcg/actuati 00 nostril in Me dical on nasal the Branch spray morning. fluticasone 2021-0 Yes [id number] 2{spray Use 2 [facility] propionate 8-05 } Sprays in ity of 50 00:00: each [place] mcg/actuati 00 nostril in Me dical on nasal the Branch spray morning. fluticasone 2021-0 Yes [id number] 2{spray Use 2 [facility] propionate 8-05 } Sprays in ity of 50 00:00: each [place] mcg/actuati 00 nostril in Me dical on nasal the Branch spray morning. fluticasone 2021-0 Yes [id number] 2{spray Use 2 [facility] propionate 8-05 } Sprays in ity of 50 00:00: each [place] mcg/actuati 00 nostril in Me dical on nasal the Branch spray morning. fluticasone 2021-0 Yes [id number] 2{spray Use 2 [facility] propionate 8-05 } Sprays in ity of 50 00:00: each [place] mcg/actuati 00 nostril in Me dical on nasal the Branch spray morning. fluticasone 2021-0 Yes [id number] 2{spray Use 2 [facility] propionate 8-05 } Sprays in ity of 50 00:00: each [place] mcg/actuati 00 nostril in Me dical on nasal the Branch spray morning. fluticasone 2021-0 Yes [id number] 2{spray Use 2 [facility] propionate 8-05 } Sprays in ity of 50 00:00: each [place] mcg/actuati 00 nostril in Me dical on nasal the Branch spray morning. fluticasone 2021-0 Yes [id number] 2{spray Use 2 [facility] propionate 8-05 } Sprays in ity of 50 00:00: each [place] mcg/actuati 00 nostril in Me dical on nasal the Branch spray morning. fluticasone 2021-0 Yes [id number] 2{spray Use 2 [facility] propionate 8-05 } Sprays in ity of 50 00:00: each [place] mcg/actuati 00 nostril in Me dical on nasal the Branch spray morning. fluticasone 2021-0 Yes [id number] 2{spray Use 2 [facility] propionate 8-05 } Sprays in ity of 50 00:00: each [place] mcg/actuati 00 nostril in Me dical on nasal the Branch spray morning. fluticasone 2021-0 Yes [id number] 2{spray Use 2 [facility] propionate 8-05 } Sprays in ity of 50 00:00: each [place] mcg/actuati 00 nostril in Me dical on nasal the Branch spray morning. fluticasone 2021-0 Yes [id number] 2{spray Use 2 [facility] propionate 8-05 } Sprays in ity of 50 00:00: each [place] mcg/actuati 00 nostril in Me dical on nasal the Branch spray morning. fluticasone 2021-0 Yes [id number] 2{spray Use 2 [facility] propionate 8-05 } Sprays in ity of 50 00:00: each [place] mcg/actuati 00 nostril in Me dical on nasal the Branch spray morning. fluticasone 2021-0 Yes [id number] 2{spray Use 2 [facility] propionate 8-05 } Sprays in ity of 50 00:00: each [place] mcg/actuati 00 nostril in Me dical on nasal the Branch spray morning. fluticasone 2021-0 Yes [id number] 2{spray Use 2 [facility] propionate 8-05 } Sprays in ity of 50 00:00: each [place] mcg/actuati 00 nostril in Me dical on nasal the Branch spray morning. fluticasone 2021-0 Yes [id number] 2{spray Use 2 [facility] propionate 8-05 } Sprays in ity of 50 00:00: each [place] mcg/actuati 00 nostril in Me dical on nasal the Branch spray morning. fluticasone 2021-0 Yes [id number] 2{spray Use 2 [facility] propionate 8-05 } Sprays in ity of 50 00:00: each [place] mcg/actuati 00 nostril in Me dical on nasal the Branch spray morning. fluticasone 2021-0 Yes [id number] 2{spray Use 2 [facility] propionate 8-05 } Sprays in ity of 50 00:00: each [place] mcg/actuati 00 nostril in Me dical on nasal the Branch spray morning. fluticasone 2021-0 Yes [id number] 2{spray Use 2 [facility] propionate 8-05 } Sprays in ity of 50 00:00: each [place] mcg/actuati 00 nostril in Me dical on nasal the Branch spray morning. fluticasone 2021-0 Yes [id number] 2{spray Use 2 [facility] propionate 8-05 } Sprays in ity of 50 00:00: each [place] mcg/actuati 00 nostril in Me dical on nasal the Branch spray morning. fluticasone 2021-0 Yes [id number] 2{spray Use 2 [facility] propionate 8-05 } Sprays in ity of 50 00:00: each [place] mcg/actuati 00 nostril in Me dical on nasal the Branch spray morning. fluticasone 2021-0 Yes [id number] 2{spray Use 2 [facility] propionate 8-05 } Sprays in ity of 50 00:00: each [place] mcg/actuati 00 nostril in Me dical on nasal the Branch spray morning. fluticasone 2021-0 Yes [id number] 2{spray Use 2 [facility] propionate 8-05 } Sprays in ity of 50 00:00: each [place] mcg/actuati 00 nostril in Me dical on nasal the Branch spray morning. fluticasone 2021-0 Yes [id number] 2{spray Use 2 [facility] propionate 8-05 } Sprays in ity of 50 00:00: each [place] mcg/actuati 00 nostril in Me dical on nasal the Branch spray morning. fluticasone 2021-0 Yes [id number] 2{spray Use 2 [facility] propionate 8-05 } Sprays in ity of 50 00:00: each [place] mcg/actuati 00 nostril in Me dical on nasal the Branch spray morning. fluticasone 2021-0 Yes [id number] 2{spray Use 2 [facility] propionate 8-05 } Sprays in ity of 50 00:00: each [place] mcg/actuati 00 nostril in Me dical on nasal the Branch spray morning. fluticasone 2021-0 Yes [id number] 2{spray Use 2 [facility] propionate 8-05 } Sprays in ity of 50 00:00: each [place] mcg/actuati 00 nostril in Me dical on nasal the Branch spray morning. fluticasone 2021-0 Yes [id number] 2{spray Use 2 [facility] propionate 8-05 } Sprays in ity of 50 00:00: each [place] mcg/actuati 00 nostril in Me dical on nasal the Branch spray morning. fluticasone 2021-0 Yes [id number] 2{spray Use 2 [facility] propionate 8-05 } Sprays in ity of 50 00:00: each [place] mcg/actuati 00 nostril in Me dical on nasal the Branch spray morning. fluticasone 2021-0 Yes [id number] 2{spray Use 2 [facility] propionate 8-05 } Sprays in ity of 50 00:00: each [place] mcg/actuati 00 nostril in Me dical on nasal the Branch spray morning. fluticasone 2021-0 Yes [id number] 2{spray Use 2 [facility] propionate 8-05 } Sprays in ity of 50 00:00: each [place] mcg/actuati 00 nostril in Me dical on nasal the Branch spray morning. fluticasone 2021-0 Yes [id number] 2{spray Use 2 [facility] propionate 8-05 } Sprays in ity of 50 00:00: each [place] mcg/actuati 00 nostril in Me dical on nasal the Branch spray morning. fluticasone 2021-0 Yes [id number] 2{spray Use 2 [facility] propionate 8-05 } Sprays in ity of 50 00:00: each [place] mcg/actuati 00 nostril in Me dical on nasal the Branch spray morning. fluticasone 2021-0 Yes [id number] 2{spray Use 2 [facility] propionate 8-05 } Sprays in ity of 50 00:00: each [place] mcg/actuati 00 nostril in Me dical on nasal the Branch spray morning. fluticasone 2021-0 Yes [id number] 2{spray Use 2 [facility] propionate 8-05 } Sprays in ity of 50 00:00: each [place] mcg/actuati 00 nostril in Me dical on nasal the Branch spray morning. fluticasone 2021-0 Yes [id number] 2{spray Use 2 [facility] propionate 8-05 } Sprays in ity of 50 00:00: each [place] mcg/actuati 00 nostril in Me dical on nasal the Branch spray morning. fluticasone 2021-0 Yes [id number] 2{spray Use 2 [facility] propionate 8-05 } Sprays in ity of 50 00:00: each [place] mcg/actuati 00 nostril in Me dical on nasal the Branch spray morning. fluticasone 2021-0 Yes [id number] 2{spray Use 2 [facility] propionate 8-05 } Sprays in ity of 50 00:00: each [place] mcg/actuati 00 nostril in Me dical on nasal the Branch spray morning. fluticasone 0 Yes [id number] 2{spray Use 2 [facility] propionate 8-05 } Sprays in ity of 50 00:00: each [place] mcg/actuati 00 nostril in Me dical on nasal the Branch spray morning. fluticasone 2021-0 Yes [id number] 2{spray Use 2 [facility] propionate 8-05 } Sprays in ity of 50 00:00: each [place] mcg/actuati 00 nostril in Me dical on nasal the Branch spray morning. fluticasone 0 Yes [id number] 2{spray Use 2 [facility] propionate 8-05 } Sprays in ity of 50 00:00: each [place] mcg/actuati 00 nostril in Me dical on nasal the Branch spray morning. fluticasone 0 Yes [id number] 2{spray Use 2 [facility] propionate 8-05 } Sprays in ity of 50 00:00: each [place] mcg/actuati 00 nostril in Me dical on nasal the Branch spray morning. fluticasone 2021-0 Yes [id number] 2{spray Use 2 [facility] propionate 8-05 } Sprays in ity of 50 00:00: each [place] mcg/actuati 00 nostril in Me dical on nasal the Branch spray morning. fluticasone 2021-0 Yes [id number] 2{spray Use 2 [facility] propionate 8-05 } Sprays in ity of 50 00:00: each [place] mcg/actuati 00 nostril in Me dical on nasal the Branch spray morning. fluticasone 2021-0 Yes [id number] 2{spray Use 2 [facility] propionate 8-05 } Sprays in ity of 50 00:00: each [place] mcg/actuati 00 nostril in Me dical on nasal the Branch spray morning. fluticasone 2021-0 Yes [id number] 2{spray Use 2 [facility] propionate 8-05 } Sprays in ity of 50 00:00: each [place] mcg/actuati 00 nostril in Me dical on nasal [facility] spray morning. fluticasone 2021-0 Yes [id number] 2{spray Use 2 [facility] propionate 8-05 } Sprays in ity of 50 00:00: each [place] mcg/actuati 00 nostril in Me dical on nasal the [facility] spray morning. fluticasone 0 Yes [id number] 2{spray Use 2 [facility] propionate 8-05 } Sprays in ity of 50 00:00: each [place] mcg/actuati 00 nostril in Me dical on nasal the [facility] spray morning. fluticasone 0 Yes [id number] 2{spray Use 2 [facility] propionate 8-05 } Sprays in ity of 50 00:00: each [place] mcg/actuati 00 nostril in Me dical on nasal the [facility] spray morning. fluticasone 0 Yes [id number] 2{spray Use 2 [facility] propionate 8-05 } Sprays in ity of 50 00:00: each [place] mcg/actuati 00 nostril in Me dical on nasal the [facility] spray morning. fluticasone 0 Yes [id number] 2{spray Use 2 [facility] propionate 8-05 } Sprays in ity of 50 00:00: each [place] mcg/actuati 00 nostril in Me dical on nasal the [facility] spray morning. fluticasone 2021-0 Yes [id number] 2{spray Use 2 [facility] propionate 8-05 } Sprays in ity of 50 00:00: each [place] mcg/actuati 00 nostril in Me dical on nasal the [facility] spray morning. fluticasone 2021-0 Yes [id number] 2{spray Use 2 [facility] propionate 8-05 } Sprays in ity of 50 00:00: each [place] mcg/actuati 00 nostril in Me dical on nasal the [facility] spray morning. fluticasone 2021-0 Yes [id number] 2{spray Use 2 [facility] propionate 8-05 } Sprays in ity of 50 00:00: each [place] mcg/actuati 00 nostril in Me dical on nasal the [facility] spray morning. fluticasone 2021-0 Yes [id number] 2{spray Use 2 [facility] propionate 8-05 } Sprays in ity of 50 00:00: each [place] mcg/actuati 00 nostril in Me dical on nasal the [facility] spray morning. fluticasone 2021-0 Yes [id number] 2{spray Use 2 [facility] propionate 8-05 } Sprays in ity of 50 00:00: each [place] mcg/actuati 00 nostril in Me dical on nasal the [facility] spray morning. fluticasone 2021-0 Yes [id number] 2{spray Use 2 [facility] propionate 8-05 } Sprays in ity of 50 00:00: each [place] mcg/actuati 00 nostril in Me dical on nasal the [facility] spray morning. fluticasone 2021-0 Yes [id number] 2{spray Use 2 [facility] propionate 8-05 } Sprays in ity of 50 00:00: each [place] mcg/actuati 00 nostril in Me dical on nasal the [facility] spray morning. fluticasone 2021-0 Yes [id number] 2{spray Use 2 [facility] propionate 8-05 } Sprays in ity of 50 00:00: each [place] mcg/actuati 00 nostril in Me dical on nasal the [facility] spray morning. fluticasone 2021-0 Yes [id number] 2{spray Use 2 [facility] propionate 8-05 } Sprays in ity of 50 00:00: each [place] mcg/actuati 00 nostril in Me dical on nasal the [facility] spray morning. fluticasone 2021-0 Yes [id number] 2{spray Use 2 [facility] propionate 8-05 } Sprays in ity of 50 00:00: each [place] mcg/actuati 00 nostril in Me dical on nasal the [facility] spray morning. fluticasone 2021-0 Yes [id number] 2{spray Use 2 [facility] propionate 8-05 } Sprays in ity of 50 00:00: each [place] mcg/actuati 00 nostril in Me dical on nasal the [facility] spray morning. fluticasone 2021-0 Yes [id number] 2{spray Use 2 [facility] propionate 8-05 } Sprays in ity of 50 00:00: each [place] mcg/actuati 00 nostril in Me dical on nasal the [facility] spray morning. fluticasone 2021-0 Yes [id number] 2{spray Use 2 [facility] propionate 8-05 } Sprays in ity of 50 00:00: each [place] mcg/actuati 00 nostril in Me dical on nasal the [facility] spray morning. fluticasone 2021-0 Yes [id number] 2{spray Use 2 [facility] propionate 8-05 } Sprays in ity of 50 00:00: each [place] mcg/actuati 00 nostril in Me dical on nasal the [facility] spray morning. fluticasone 2021-0 Yes [id number] 2{spray Use 2 [facility] propionate 8-05 } Sprays in ity of 50 00:00: each [place] mcg/actuati 00 nostril in Me dical on nasal the [facility] spray morning. fluticasone 2021-0 Yes [id number] 2{spray Use 2 [facility] propionate 8-05 } Sprays in ity of 50 00:00: each [place] mcg/actuati 00 nostril in Me dical on nasal the [facility] spray morning. fluticasone 2021-0 Yes [id number] 2{spray Use 2 [facility] propionate 8-05 } Sprays in ity of 50 00:00: each [place] mcg/actuati 00 nostril in Me dical on nasal the [facility] spray morning. fluticasone 2021-0 Yes [id number] 2{spray Use 2 [facility] propionate 8-05 } Sprays in ity of 50 00:00: each [place] mcg/actuati 00 nostril in Me dical on nasal the [facility] spray morning. fluticasone 2021-0 Yes [id number] 2{spray Use 2 [facility] propionate 8-05 } Sprays in ity of 50 00:00: each [place] mcg/actuati 00 nostril in Me dical on nasal the [facility] spray morning. fluticasone 2021-0 Yes [id number] 2{spray Use 2 [facility] propionate 8-05 } Sprays in ity of 50 00:00: each [place] mcg/actuati 00 nostril in Me dical on nasal the [facility] spray morning. fluticasone 2021-0 Yes [id number] 2{spray Use 2 [facility] propionate 8-05 } Sprays in ity of 50 00:00: each [place] mcg/actuati 00 nostril in Me dical on nasal the [facility] spray morning. fluticasone 2021-0 Yes [id number] 2{spray Use 2 [facility] propionate 8-05 } Sprays in ity of 50 00:00: each [place] mcg/actuati 00 nostril in Me dical on nasal the [facility] spray morning. fluticasone 2021-0 Yes [id number] 2{spray Use 2 [facility] propionate 8-05 } Sprays in ity of 50 00:00: each [place] mcg/actuati 00 nostril in Me dical on nasal the [facility] spray morning. fluticasone 2022-0 Yes [id number] 2{spray Use 2 [facility] propionate 8-05 } Sprays in ity of 50 00:00: each [place] mcg/actuati 00 nostril in Me dical on nasal the [facility] spray morning. fluticasone 0 Yes [id number] 2{spray Use 2 [facility] propionate 8-05 } Sprays in ity of 50 00:00: each [place] mcg/actuati 00 nostril in Me dical on nasal the [facility] spray morning. fluticasone 0 Yes [id number] 2{spray Use 2 [facility] propionate 8-05 } Sprays in ity of 50 00:00: each [place] mcg/actuati 00 nostril in Me dical on nasal the [facility] spray morning. fluticasone 0 Yes [id number] 2{spray Use 2 [facility] propionate 8-05 } Sprays in ity of 50 00:00: each [place] mcg/actuati 00 nostril in Me dical on nasal the [facility] spray morning. fluticasone Yes [id number] 2{spray Use 2 [facility] propionate 8-05 } Sprays in ity of 50 00:00: each [place] mcg/actuati 00 nostril in Me dical on nasal the [facility] spray morning. fluticasone 0 Yes [id number] 2{spray Use 2 [facility] propionate 8-05 } Sprays in ity of 50 00:00: each [place] mcg/actuati 00 nostril in Me dical on nasal the [facility] spray morning. fluticasone 0 Yes [id number] 2{spray Use 2 [facility] propionate 8-05 } Sprays in ity of 50 00:00: each [place] mcg/actuati 00 nostril in Me dical on nasal the [facility] spray morning. fluticasone 0 Yes [id number] 2{spray Use 2 [facility] propionate 8-05 } Sprays in ity of 50 00:00: each [place] mcg/actuati 00 nostril in Me dical on nasal the [facility] spray morning. fluticasone 0 Yes [id number] 2{spray Use 2 [facility] propionate 8-05 } Sprays in ity of 50 00:00: each [place] mcg/actuati 00 nostril in Me dical on nasal the [facility] spray morning. fluticasone 0 Yes [id number] 2{spray Use 2 [facility] propionate 8-05 } Sprays in ity of 50 00:00: each [place] mcg/actuati 00 nostril in Me dical on nasal the [facility] spray morning. fluticasone 0 Yes [id number] 2{spray Use 2 [facility] propionate 8-05 } Sprays in ity of 50 00:00: each [place] mcg/actuati 00 nostril in Me dical on nasal the [facility] spray morning. fluticasone Yes [id number] 2{spray Use 2 [facility] propionate 8-05 } Sprays in ity of 50 00:00: each [place] mcg/actuati 00 nostril in Me dical on nasal the [facility] spray morning. fluticasone Yes [id number] 2{spray Use 2 [facility] propionate 8-05 } Sprays in ity of 50 00:00: each [place] mcg/actuati 00 nostril in Me dical on nasal the [facility] spray morning. fluticasone Yes [id number] 2{spray Use 2 [facility] propionate 8-05 } Sprays in ity of 50 00:00: each [place] mcg/actuati 00 nostril in Me dical on nasal the [facility] spray morning. fluticasone 0 Yes [id number] 2{spray Use 2 [facility] propionate 8-05 } Sprays in ity of 50 00:00: each [place] mcg/actuati 00 nostril in Me dical on nasal the [facility] spray morning. fluticasone 0 Yes [id number] 2{spray Use 2 [facility] propionate 8-05 } Sprays in ity of 50 00:00: each [place] mcg/actuati 00 nostril in Me dical on nasal the [facility] spray morning. fluticasone 0 Yes [id number] 2{spray Use 2 [facility] propionate 8-05 } Sprays in ity of 50 00:00: each [place] mcg/actuati 00 nostril in Me dical on nasal the [facility] spray morning. fluticasone 0 Yes [id number] 2{spray Use 2 [facility] propionate 8-05 } Sprays in ity of 50 00:00: each [place] mcg/actuati 00 nostril in Me dical on nasal the [facility] spray morning. fluticasone Yes [id number] 2{spray Use 2 [facility] propionate 8-05 } Sprays in ity of 50 00:00: each [place] mcg/actuati 00 nostril in Me dical on nasal the [facility] spray morning. fluticasone 2021-0 Yes [id number] 2{spray Use 2 [facility] propionate 8-05 } Sprays in ity of 50 00:00: each [place] mcg/actuati 00 nostril in Me dical on nasal the [facility] spray morning. fluticasone 2021-0 Yes [id number] 2{spray Use 2 [facility] propionate 8-05 } Sprays in ity of 50 00:00: each [place] mcg/actuati 00 nostril in Me dical on nasal the [facility] spray morning. fluticasone 2021-0 Yes [id number] 2{spray Use 2 [facility] propionate 8-05 } Sprays in ity of 50 00:00: each [place] mcg/actuati 00 nostril in Me dical on nasal the [facility] spray morning. fluticasone 2021-0 Yes [id number] 2{spray Use 2 [facility] propionate 8-05 } Sprays in ity of 50 00:00: each [place] mcg/actuati 00 nostril in Me dical on nasal the [facility] spray morning. fluticasone 2021-0 Yes [id number] 2{spray Use 2 [facility] propionate 8-05 } Sprays in ity of 50 00:00: each [place] mcg/actuati 00 nostril in Me dical on nasal the [facility] spray morning. fluticasone 2021-0 Yes [id number] 2{spray Use 2 [facility] propionate 8-05 } Sprays in ity of 50 00:00: each [place] mcg/actuati 00 nostril in Me dical on nasal the [facility] spray morning. fluticasone 2021-0 Yes [id number] 2{spray Use 2 [facility] propionate 8-05 } Sprays in ity of 50 00:00: each [place] mcg/actuati 00 nostril in Me dical on nasal the [facility] spray morning. fluticasone 2021-0 Yes [id number] 2{spray Use 2 [facility] propionate 8-05 } Sprays in ity of 50 00:00: each [place] mcg/actuati 00 nostril in Me dical on nasal the [facility] spray morning. fluticasone 2021-0 Yes [id number] 2{spray Use 2 [facility] propionate 8-05 } Sprays in ity of 50 00:00: each [place] mcg/actuati 00 nostril in Me dical on nasal the [facility] spray morning. fluticasone 2021-0 Yes [id number] 2{spray Use 2 [facility] propionate 8-05 } Sprays in ity of 50 00:00: each [place] mcg/actuati 00 nostril in Me dical on nasal the [facility] spray morning. fluticasone 2021-0 Yes [id number] 2{spray Use 2 [facility] propionate 8-05 } Sprays in ity of 50 00:00: each [place] mcg/actuati 00 nostril in Me dical on nasal the [facility] spray morning. fluticasone 2021-0 Yes [id number] 2{spray Use 2 [facility] propionate 8-05 } Sprays in ity of 50 00:00: each [place] mcg/actuati 00 nostril in Me dical on nasal the [facility] spray morning. fluticasone 2021-0 Yes [id number] 2{spray Use 2 [facility] propionate 8-05 } Sprays in ity of 50 00:00: each [place] mcg/actuati 00 nostril in Me dical on nasal the [facility] spray morning. fluticasone 2021-0 Yes [id number] 2{spray Use 2 [facility] propionate 8-05 } Sprays in ity of 50 00:00: each [place] mcg/actuati 00 nostril in Me dical on nasal the [facility] spray morning. fluticasone 2021-0 Yes [id number] 2{spray Use 2 [facility] propionate 8-05 } Sprays in ity of 50 00:00: each [place] mcg/actuati 00 nostril in Me dical on nasal the [facility] spray morning. fluticasone 2021-0 Yes [id number] 2{spray Use 2 [facility] propionate 8-05 } Sprays in ity of 50 00:00: each [place] mcg/actuati 00 nostril in Me dical on nasal the [facility] spray morning. fluticasone 2021-0 Yes [id number] 2{spray Use 2 [facility] propionate 8-05 } Sprays in ity of 50 00:00: each [place] mcg/actuati 00 nostril in Me dical on nasal the [facility] spray morning. fluticasone 2021-0 Yes [id number] 2{spray Use 2 [facility] propionate 8-05 } Sprays in ity of 50 00:00: each [place] mcg/actuati 00 nostril in Me dical on nasal the [facility] spray morning. fluticasone 2021-0 Yes [id number] 2{spray Use 2 [facility] propionate 8-05 } Sprays in ity of 50 00:00: each [place] mcg/actuati 00 nostril in Me dical on nasal the [facility] spray morning. fluticasone 2021-0 Yes [id number] 2{spray Use 2 [facility] propionate 8-05 } Sprays in ity of 50 00:00: each [place] mcg/actuati 00 nostril in Me dical on nasal the [facility] spray morning. fluticasone 2021-0 Yes [id number] 2{spray Use 2 [facility] propionate 8-05 } Sprays in ity of 50 00:00: each [place] mcg/actuati 00 nostril in Me dical on nasal the [facility] spray morning. fluticasone 2021-0 Yes [id number] 2{spray Use 2 [facility] propionate 8-05 } Sprays in ity of 50 00:00: each [place] mcg/actuati 00 nostril in Me dical on nasal the [facility] spray morning. fluticasone 2021-0 Yes [id number] 2{spray Use 2 [facility] propionate 8-05 } Sprays in ity of 50 00:00: each [place] mcg/actuati 00 nostril in Me dical on nasal the [facility] spray morning. fluticasone 2021-0 Yes [id number] 2{spray Use 2 [facility] propionate 8-05 } Sprays in ity of 50 00:00: each [place] mcg/actuati 00 nostril in Me dical on nasal the [facility] spray morning. fluticasone 2021-0 Yes [id number] 2{spray Use 2 [facility] propionate 8-05 } Sprays in ity of 50 00:00: each [place] mcg/actuati 00 nostril in Me dical on nasal the [facility] spray morning. fluticasone 2021-0 Yes [id number] 2{spray Use 2 [facility] propionate 8-05 } Sprays in ity of 50 00:00: each [place] mcg/actuati 00 nostril in Me dical on nasal the [facility] spray morning. fluticasone 2021-0 Yes [id number] 2{spray Use 2 [facility] propionate 8-05 } Sprays in ity of 50 00:00: each [place] mcg/actuati 00 nostril in Me dical on nasal the [facility] spray morning. fluticasone 2021-0 Yes [id number] 2{spray Use 2 [facility] propionate 8-05 } Sprays in ity of 50 00:00: each [place] mcg/actuati 00 nostril in Me dical on nasal the [facility] spray morning. fluticasone 2021-0 Yes [id number] 2{spray Use 2 [facility] propionate 8-05 } Sprays in ity of 50 00:00: each [place] mcg/actuati 00 nostril in Me dical on nasal the [facility] spray morning. fluticasone 2021-0 Yes [id number] 2{spray Use 2 [facility] propionate 8-05 } Sprays in ity of 50 00:00: each [place] mcg/actuati 00 nostril in Me dical on nasal the [facility] spray morning. fluticasone 2021-0 Yes [id number] 2{spray Use 2 [facility] propionate 8-05 } Sprays in ity of 50 00:00: each [place] mcg/actuati 00 nostril in Me dical on nasal the [facility] spray morning. fluticasone 2021-0 Yes [id number] 2{spray Use 2 [facility] propionate 8-05 } Sprays in ity of 50 00:00: each [place] mcg/actuati 00 nostril in Me dical on nasal the [facility] spray morning. fluticasone 2021-0 Yes [id number] 2{spray Use 2 [facility] propionate 8-05 } Sprays in ity of 50 00:00: each [place] mcg/actuati 00 nostril in Me dical on nasal the [facility] spray morning. fluticasone 2021-0 Yes [id number] 2{spray Use 2 [facility] propionate 8-05 } Sprays in ity of 50 00:00: each [place] mcg/actuati 00 nostril in Me dical on nasal the [facility] spray morning. fluticasone 2021-0 Yes [id number] 2{spray Use 2 [facility] propionate 8-05 } Sprays in ity of 50 00:00: each [place] mcg/actuati 00 nostril in Me dical on nasal the [facility] spray morning. fluticasone 2021-0 Yes [id number] 2{spray Use 2 [facility] propionate 8-05 } Sprays in ity of 50 00:00: each [place] mcg/actuati 00 nostril in Me dical on nasal the [facility] spray morning. fluticasone 2021-0 Yes [id number] 2{spray Use 2 [facility] propionate 8-05 } Sprays in ity of 50 00:00: each [place] mcg/actuati 00 nostril in Me dical on nasal the [facility] spray morning. fluticasone 2021-0 Yes [id number] 2{spray Use 2 [facility] propionate 8-05 } Sprays in ity of 50 00:00: each [place] mcg/actuati 00 nostril in Me dical on nasal the [facility] spray morning. fluticasone 2021-0 Yes [id number] 2{spray Use 2 [facility] propionate 8-05 } Sprays in ity of 50 00:00: each [place] mcg/actuati 00 nostril in Me dical on nasal the [facility] spray morning. fluticasone 2021-0 Yes [id number] 2{spray Use 2 [facility] propionate 8-05 } Sprays in ity of 50 00:00: each [place] mcg/actuati 00 nostril in Me dical on nasal the [facility] spray morning. fluticasone 2021-0 Yes [id number] 2{spray Use 2 [facility] propionate 8-05 } Sprays in ity of 50 00:00: each [place] mcg/actuati 00 nostril in Me dical on nasal the [facility] spray morning. fluticasone 2021-0 Yes [id number] 2{spray Use 2 [facility] propionate 8-05 } Sprays in ity of 50 00:00: each [place] mcg/actuati 00 nostril in Me dical on nasal the [facility] spray morning. fluticasone 2021-0 Yes [id number] 2{spray Use 2 [facility] propionate 8-05 } Sprays in ity of 50 00:00: each [place] mcg/actuati 00 nostril in Me dical on nasal the [facility] spray morning. fluticasone 2021-0 Yes [id number] 2{spray Use 2 [facility] propionate 8-05 } Sprays in ity of 50 00:00: each [place] mcg/actuati 00 nostril in Me dical on nasal the [facility] spray morning. fluticasone 2021-0 Yes [id number] 2{spray Use 2 [facility] propionate 8-05 } Sprays in ity of 50 00:00: each [place] mcg/actuati 00 nostril in Me dical on nasal the [facility] spray morning. fluticasone 0 Yes [id number] 2{spray Use 2 [facility] propionate 8-05 } Sprays in ity of 50 00:00: each [place] mcg/actuati 00 nostril in Me dical on nasal the [facility] spray morning. fluticasone 2021-0 Yes [id number] 2{spray Use 2 [facility] propionate 8-05 } Sprays in ity of 50 00:00: each [place] mcg/actuati 00 nostril in Me dical on nasal the [facility] spray morning. fluticasone 0 Yes [id number] 2{spray Use 2 [facility] propionate 8-05 } Sprays in ity of 50 00:00: each [place] mcg/actuati 00 nostril in Me dical on nasal the [facility] spray morning. fluticasone 0 Yes [id number] 2{spray Use 2 [facility] propionate 8-05 } Sprays in ity of 50 00:00: each [place] mcg/actuati 00 nostril in Me dical on nasal the [facility] spray morning. fluticasone 2021-0 Yes [id number] 2{spray Use 2 [facility] propionate 8-05 } Sprays in ity of 50 00:00: each [place] mcg/actuati 00 nostril in Me dical on nasal the [facility] spray morning. fluticasone 2021-0 Yes [id number] 2{spray Use 2 [facility] propionate 8-05 } Sprays in ity of 50 00:00: each [place] mcg/actuati 00 nostril in Me dical on nasal the [facility] spray morning. fluticasone 2021-0 Yes [id number] 2{spray Use 2 [facility] propionate 8-05 } Sprays in ity of 50 00:00: each [place] mcg/actuati 00 nostril in Me dical on nasal the [facility] spray morning. fluticasone 2021-0 Yes [id number] 2{spray Use 2 [facility] propionate 8-05 } Sprays in ity of 50 00:00: each [place] mcg/actuati 00 nostril in Me dical on nasal the [facility] spray morning. fluticasone 2021-0 Yes [id number] 2{spray Use 2 [facility] propionate 8-05 } Sprays in ity of 50 00:00: each [place] mcg/actuati 00 nostril in Me dical on nasal the [facility] spray morning. fluticasone Yes [id number] 2{spray Use 2 [facility] propionate 8-05 } Sprays in ity of 50 00:00: each [place] mcg/actuati 00 nostril in Me dical on nasal the [facility] spray morning. doxepin 25 Yes [id number] 25mg Take 1 [facility] mg capsule 8-03 capsule by ity of 00:00: mouth at [place] [address] bedtime. [facility] doxepin 25 Yes [id number] 25mg Take 1 [facility] mg capsule 8-03 capsule by ity of 00:00: mouth at [place] [address] bedtime. [facility] doxepin Yes [id number] 25mg Take 1 [facility] mg capsule 8-03 capsule by ity of 00:00: mouth at [place] [address] bedtime. [facility] doxepin 25 Yes [id number] 25mg Take 1 [facility] mg capsule 8-03 capsule by ity of 00:00: mouth at [place] [address] bedtime. [facility] doxepin Yes [id number] 25mg Take 1 [facility] mg capsule 8-03 capsule by ity of 00:00: mouth at [place] [address] bedtime. [facility] doxepin Yes [id number] 25mg Take 1 [facility] mg capsule 8-03 capsule by ity of 00:00: mouth at [place] [address] bedtime. [facility] doxepin 25 Yes [id number] 25mg Take 1 [facility] mg capsule 8-03 capsule by ity of 00:00: mouth at [place] [address] bedtime. [facility] doxepin Yes [id number] 25mg Take 1 [facility] mg capsule 8-03 capsule by ity of 00:00: mouth at [place] [address] bedtime. [facility] doxepin 25 Yes [id number] 25mg Take 1 [facility] mg capsule 8-03 capsule by ity of 00:00: mouth at [place] [address] bedtime. [facility] doxepin 25 Yes [id number] 25mg Take 1 [facility] mg capsule 8-03 capsule by ity of 00:00: mouth at [place] [address] bedtime. [facility] doxepin 25 Yes [id number] 25mg Take 1 [facility] mg capsule 8-03 capsule by ity of 00:00: mouth at [place] [address] bedtime. [facility] doxepin Yes [id number] 25mg Take 1 [facility] mg capsule 8-03 capsule by ity of 00:00: mouth at [place] [address] bedtime. [facility] doxepin Yes [id number] 25mg Take 1 [facility] mg capsule 8-03 capsule by ity of 00:00: mouth at [place] [address] bedtime. [facility] doxepin Yes [id number] 25mg Take 1 [facility] mg capsule 8-03 capsule by ity of 00:00: mouth at [place] [address] bedtime. [facility] doxepin Yes [id number] 25mg Take 1 [facility] mg capsule 8-03 capsule by ity of 00:00: mouth at [place] [address] bedtime. [facility] doxepin Yes [id number] 25mg Take 1 [facility] mg capsule 8-03 capsule by ity of 00:00: mouth at [place] [address] bedtime. [facility] doxepin Yes [id number] 25mg Take 1 [facility] mg capsule 8-03 capsule by ity of 00:00: mouth at [place] [address] bedtime. [facility] doxepin Yes [id number] 25mg Take 1 [facility] mg capsule 8-03 capsule by ity of 00:00: mouth at [place] [address] bedtime. [facility] doxepin Yes [id number] 25mg Take 1 [facility] mg capsule 8-03 capsule by ity of 00:00: mouth at [place] [address] bedtime. [facility] doxepin Yes [id number] 25mg Take 1 [facility] mg capsule 8-03 capsule by ity of 00:00: mouth at [place] [address] bedtime. [facility] doxepin Yes [id number] 25mg Take 1 [facility] mg capsule 8-03 capsule by ity of 00:00: mouth at [place] [address] bedtime. [facility] doxepin Yes [id number] 25mg Take 1 [facility] mg capsule 8-03 capsule by ity of 00:00: mouth at [place] [address] bedtime. [facility] doxepin Yes [id number] 25mg Take 1 [facility] mg capsule 8-03 capsule by ity of 00:00: mouth at [place] [address] bedtime. [facility] doxepin 25 Yes [id number] 25mg Take 1 [facility] mg capsule 8-03 capsule by ity of 00:00: mouth at [place] [address] bedtime. [facility] doxepin 25 0 Yes [id number] 25mg Take 1 [facility] mg capsule 8-03 capsule by ity of 00:00: mouth at [place] [address] bedtime. [facility] doxepin 25 0 Yes [id number] 25mg Take 1 [facility] mg capsule 8-03 capsule by ity of 00:00: mouth at [place] [address] bedtime. [facility] doxepin 25 0 Yes [id number] 25mg Take 1 [facility] mg capsule 8-03 capsule by ity of 00:00: mouth at [place] [address] bedtime. [facility] doxepin 25 Yes [id number] 25mg Take 1 [facility] mg capsule 8-03 capsule by ity of 00:00: mouth at [place] [address] bedtime. [facility] doxepin 25 Yes [id number] 25mg Take 1 [facility] mg capsule 8-03 capsule by ity of 00:00: mouth at [place] [address] bedtime. [facility] doxepin 25 Yes [id number] 25mg Take 1 [facility] mg capsule 8-03 capsule by ity of 00:00: mouth at [place] [address] bedtime. [facility] doxepin 25 2021- No [id number] 25mg Take 1 [facility] mg capsule 8-03 11-08 capsule by it y of 00:00: 00:00 mouth at [place] 00 :00 bedtime. [facility] benzonatate Yes [id number] 100mg Take 1 [facility] (TESSALON 7-29 capsule [...] in the Branch evening. benzonatate 2022-0 Yes [id number] 100mg Take 1 [facility] (TESSALON 7-29 capsule by [facility] [employer]) 100 00:00: mouth [place] mg capsule 00 [...] in the [facility] evening. benzonatate 2022-0 Yes [id number] 100mg Take 1 [facility] (TESSALON 7-29 capsule [...] in the [facility] evening. benzonatate 2022-0 Yes [id number] 100mg Take 1 [facility] (TESSALON 7-29 capsule [...] in the [facility] evening. benzonatate 2022-0 Yes [id number] 100mg Take 1 [facility] (TESSALON 7-29 capsule by [facility] [employer]) 100 00:00: mouth [place] mg capsule 00 [...] in the [facility] evening. benzonatate 2022-0 Yes [id number] 100mg Take 1 [facility] (TESSALON 7-29 capsule by [facility] [employer]) 100 00:00: mouth [place] mg capsule 00 [...] in the [facility] evening. benzonatate 2022-0 Yes [id number] 100mg Take 1 [facility] (TESSALON 7-29 capsule by [facility] [employer]) 100 00:00: mouth [place] mg capsule 00 [...] in the Branch evening. benzonatate 2022-0 Yes [id number] 100mg Take 1 [facility] (TESSALON 7-29 capsule by [employer]) 100 00:00: mouth [place] mg capsule 00 [...] in the Branch evening. benzonatate 2022-0 Yes [id number] 100mg Take 1 [facility] (TESSALON 7-29 capsule by [employer] [facility] [employer]) 100 00:00: mouth [place] mg capsule 00 [...] in the [facility] evening. benzonatate 2022-0 Yes [id number] 100mg Take 1 [facility] (TESSALON 7-29 capsule by [employer] [facility] [employer]) 100 00:00: mouth [place] mg capsule 00 [...] in the Branch evening. benzonatate 2022-0 Yes [id number] 100mg Take 1 [facility] (TESSALON 7-29 capsule [...] in the Branch evening. benzonatate 2022-0 Yes [id number] 100mg Take 1 [facility] ([facility]ESS[facility] 7-29 capsule [...] in the Branch evening. benzonatate 2022-0 Yes [id number] 100mg Take 1 [facility] ([facility]ESS[facility] 7-29 capsule [...] in the Branch evening. benzonatate 2022-0 Yes [id number] 100mg Take 1 [facility] (TESS[facility]ON 7-29 capsule [...] l solution in the Branch evening. benzonatate 0 Yes [id number] 100mg Take 1 [facility] (TESS[facility]ON 7-29 capsule by [facility] of PERLES) 100 00:00: mouth [place] mg capsule 00 every 8 Medica l (eight) Branch hours as needed for Cough. benzonatate 0 Yes [id number] 100mg Take 1 [facility] (TESSALON 7-29 capsule by ity of PERLES) 100 00:00: mouth [place] mg capsule 00 every 8 Medica l (eight) Branch hours as needed for Cough. benzonatate 0 Yes [id number] 100mg Take 1 [facility] (TESSALON 7-29 capsule by ity of PERLES) 100 00:00: mouth [place] mg capsule 00 every 8 Medica l (eight) Branch hours as needed for Cough. benzonatate 2021-0 Yes [id number] 100mg Take 1 [facility] (TESSALON 7-29 capsule by ity of PERLES) 100 00:00: mouth [place] mg capsule 00 every 8 Medica l (eight) Branch hours as needed for Cough. benzonatate 2021-0 Yes [id number] 100mg Take 1 [facility] (TESS[place]ON 7-29 capsule by ity of PERLES) 100 00:00: mouth [place] mg capsule 00 every 8 Medica l (eight) Branch hours as needed for Cough. benzonatate 2021-0 Yes [id number] 100mg Take 1 [facility] (TESS[place]ON 7-29 capsule by ity of PERLES) 100 00:00: mouth [place] mg capsule 00 every 8 Medica l (eight) Branch hours as needed for Cough. benzonatate 2021-0 Yes [id number] 100mg Take 1 [facility] (TESS[place] 7-29 capsule by it[facility] of PERLES) 100 00:00: mouth [place] mg capsule 00 every 8 Medica l (eight) Branch hours as needed for Cough. benzonatate 0 Yes [id number] 100mg Take 1 [facility] (TESS[place]ON 7-29 capsule by ity of PERLES) 100 00:00: mouth [place] mg capsule 00 every 8 Medica l (eight) Branch hours as needed for Cough. benzonatate 0 Yes [id number] 100mg Take 1 [facility] ([facility]ESS[place] 7-29 capsule by ity of PERLES) 100 00:00: mouth [place] mg capsule 00 every 8 Medica l (eight) Branch hours as needed for Cough. benzonatate 0 Yes [id number] 100mg Take 1 [facility] (TESS[place]ON 7-29 capsule by ity of PERLES) 100 00:00: mouth [place] mg capsule 00 every 8 Medica l (eight) Branch hours as needed for Cough. benzonatate 0 Yes [id number] 100mg Take 1 [facility] (TESS[place]ON 7-29 capsule by ity of PERLES) 100 00:00: mouth [place] mg capsule 00 every 8 Medica l (eight) Branch hours as needed for Cough. benzonatate 0 Yes [id number] 100mg Take 1 [facility] (TESS[place]ON 7-29 capsule by it[facility] of PERLES) 100 00:00: mouth [place] mg capsule 00 every 8 Medica l (eight) Branch hours as needed for Cough. benzonatate 0 Yes [id number] 100mg Take 1 [facility] (TESS[place]ON 7-29 capsule by it[facility] of PERLES) 100 00:00: mouth [place] mg capsule 00 every 8 Medica l (eight) Branch hours as needed for Cough. benzonatate 0 2021- No [id number] 100mg Take 1 [facility] (TESS[place]ON 7-29 11-01 capsule by it[facility] of PERLES) 100 00:00: 00:00 mouth [place] capsule 00 :00 every 8 Medica l (eight) Branch hours as needed for Cough. arformotero 2021-0 2021- No 15ug Use 2 mL U nivers L 15 mcg/2 09-29 as ity of mL 00:00: 00:00 directed [place] nebulizer 00 :00 in the Medical solution morning Branch and 2 mL in the evening. budesonide 2- No .25mg Inhale 2 U nivers 0.25 mg/2 09-29 mL in the ity of mL 00:00: 00:00 morning [place] nebulizer 00 :00 and 2 mL Medica l solution in the Branch evening. arformotero 2021-2- No 15ug Use 2 mL U nivers L 15 mcg/2 09-29 as ity of mL 00:00: 00:00 directed [place] nebulizer 00 :00 in the Medical solution morning Branch and 2 mL in the evening. budesonide 2021-2- No .25mg Inhale 2 U nivers 0.25 mg/2 09-29 mL in the ity of mL 00:00: 00:00 morning [place] nebulizer 00 :00 and 2 mL Medica l solution in the Branch evening. arformotero 2- No 15ug Use 2 mL U nivers L 15 mcg/2 09-29 as ity of mL 00:00: 00:00 directed [place] nebulizer 00 :00 in the Medical solution morning Branch and 2 mL in the evening. budesonide 2- No .25mg Inhale 2 U nivers 0.25 mg/2 09-29 mL in the ity of mL 00:00: 00:00 morning [place] nebulizer 00 :00 and 2 mL Medica l solution in the Branch evening. albuterol Yes [id number] 2{puff} Inhale 2 [facility] 90 7-27 Puffs ity of mcg/actuati 00:00: every 6 [place] on inhaler 00 (six) Medical hours as Branch needed for Wheezing or Shortness of Breath. albuterol Yes [id number] 2{puff} Inhale 2 [facility] 90 7-27 Puffs ity of mcg/actuati 00:00: every 6 [place] on inhaler 00 (six) Medical hours as Branch needed for Wheezing or Shortness of Breath. albuterol Yes [id number] 2{puff} Inhale 2 [facility] 90 7-27 Puffs ity of mcg/actuati 00:00: every 6 [place] inhaler 00 (six) Medical hours as Branch needed for Wheezing or Shortness of Breath. albuterol Yes [id number] 2{puff} Inhale 2 [facility] 90 7-27 Puffs ity of mcg/actuati 00:00: every 6 [place] inhaler 00 (six) Medical hours as Branch needed for Wheezing or Shortness of Breath. albuterol Yes [id number] 2{puff} Inhale 2 [facility] 90 7-27 Puffs ity of mcg/actuati 00:00: every 6 [place] inhaler 00 (six) Medical hours as Branch needed for Wheezing or Shortness of Breath. albuterol Yes [id number] 2{puff} Inhale 2 [facility] 90 7-27 Puffs ity of mcg/actuati 00:00: every 6 [place] on inhaler 00 (six) Medical hours as Branch needed for Wheezing or Shortness of Breath. albuterol Yes [id number] 2{puff} Inhale 2 [facility] 90 7-27 Puffs ity of mcg/actuati 00:00: every 6 [place] on inhaler 00 (six) Medical hours as Branch needed for Wheezing or Shortness of Breath. albuterol Yes [id number] 2{puff} Inhale 2 [facility] 90 7-27 Puffs ity of mcg/actuati 00:00: every 6 [place] on inhaler 00 (six) Medical hours as Branch needed for Wheezing or Shortness of Breath. albuterol Yes [id number] 2{puff} Inhale 2 [facility] 90 7-27 Puffs ity of mcg/actuati 00:00: every 6 [place] on inhaler 00 (six) Medical hours as Branch needed for Wheezing or Shortness of Breath. albuterol Yes [id number] 2{puff} Inhale 2 [facility] 90 7-27 Puffs ity of mcg/actuati 00:00: every 6 [place] on inhaler 00 (six) Medical hours as Branch needed for Wheezing or Shortness of Breath. albuterol Yes [id number] 2{puff} Inhale 2 [facility] 90 7-27 Puffs ity of mcg/actuati 00:00: every 6 [place] on inhaler 00 (six) Medical hours as Branch needed for Wheezing or Shortness of Breath. albuterol Yes [id number] 2{puff} Inhale 2 [facility] 90 7-27 Puffs ity of mcg/actuati 00:00: every 6 [place] on inhaler 00 (six) Medical hours as Branch needed for Wheezing or Shortness of Breath. albuterol Yes [id number] 2{puff} Inhale 2 [facility] 90 7-27 Puffs ity of mcg/actuati 00:00: every 6 [place] on inhaler 00 (six) Medical hours as Branch needed for Wheezing or Shortness of Breath. albuterol Yes [id number] 2{puff} Inhale 2 [facility] 90 7-27 Puffs ity of mcg/actuati 00:00: every 6 [place] on inhaler 00 (six) Medical hours as Branch needed for Wheezing or Shortness of Breath. albuterol Yes [id number] 2{puff} Inhale 2 [facility] 90 7-27 Puffs ity of mcg/actuati 00:00: every 6 [place] on inhaler 00 (six) Medical hours as Branch needed for Wheezing or Shortness of Breath. albuterol Yes [id number] 2{puff} Inhale 2 [facility] 90 7-27 Puffs ity of mcg/actuati 00:00: every 6 [place] on inhaler 00 (six) Medical hours as Branch needed for Wheezing or Shortness of Breath. albuterol Yes [id number] 2{puff} Inhale 2 [facility] 90 7-27 Puffs ity of mcg/actuati 00:00: every 6 [place] on inhaler 00 (six) Medical hours as Branch needed for Wheezing or Shortness of Breath. albuterol Yes [id number] 2{puff} Inhale 2 [facility] 90 7-27 Puffs ity of mcg/actuati 00:00: every 6 [place] on inhaler 00 (six) Medical hours as Branch needed for Wheezing or Shortness of Breath. albuterol Yes [id number] 2{puff} Inhale 2 [facility] 90 7-27 Puffs ity of mcg/actuati 00:00: every 6 [place] on inhaler 00 (six) Medical hours as Branch needed for Wheezing or Shortness of Breath. albuterol Yes [id number] 2{puff} Inhale 2 [facility] 90 7-27 Puffs ity of mcg/actuati 00:00: every 6 [place] on inhaler 00 (six) Medical hours as Branch needed for Wheezing or Shortness of Breath. albuterol Yes [id number] 2{puff} Inhale 2 [facility] 90 7-27 Puffs ity of mcg/actuati 00:00: every 6 [place] on inhaler 00 (six) Medical hours as Branch needed for Wheezing or Shortness of Breath. albuterol Yes [id number] 2{puff} Inhale 2 [facility] 90 7-27 Puffs ity of mcg/actuati 00:00: every 6 [place] on inhaler 00 (six) Medical hours as Branch needed for Wheezing or Shortness of Breath. albuterol Yes [id number] 2{puff} Inhale 2 [facility] 90 7-27 Puffs ity of mcg/actuati 00:00: every 6 [place] on inhaler 00 (six) Medical hours as Branch needed for Wheezing or Shortness of Breath. albuterol Yes [id number] 2{puff} Inhale 2 [facility] 90 7-27 Puffs ity of mcg/actuati 00:00: every 6 [place] on inhaler 00 (six) Medical hours as Branch needed for Wheezing or Shortness of Breath. albuterol Yes [id number] 2{puff} Inhale 2 [facility] 90 7-27 Puffs ity of mcg/actuati 00:00: every 6 [place] on inhaler 00 (six) Medical hours as Branch needed for Wheezing or Shortness of Breath. albuterol Yes [id number] 2{puff} Inhale 2 [facility] 90 7-27 Puffs ity of mcg/actuati 00:00: every 6 [place] on inhaler 00 (six) Medical hours as Branch needed for Wheezing or Shortness of Breath. albuterol Yes [id number] 2{puff} Inhale 2 [facility] 90 7-27 Puffs ity of mcg/actuati 00:00: every 6 [place] on inhaler 00 (six) Medical hours as Branch needed for Wheezing or Shortness of Breath. albuterol Yes [id number] 2{puff} Inhale 2 [facility] 90 7-27 Puffs ity of mcg/actuati 00:00: every 6 [place] on inhaler 00 (six) Medical hours as Branch needed for Wheezing or Shortness of Breath. albuterol Yes [id number] 2{puff} Inhale 2 [facility] 90 7-27 Puffs ity of mcg/actuati 00:00: every 6 [place] on inhaler 00 (six) Medical hours as Branch needed for Wheezing or Shortness of Breath. albuterol Yes [id number] 2{puff} Inhale 2 [facility] 90 7-27 Puffs ity of mcg/actuati 00:00: every 6 [place] on inhaler 00 (six) Medical hours as Branch needed for Wheezing or Shortness of Breath. albuterol Yes [id number] 2{puff} Inhale 2 [facility] 90 7-27 Puffs ity of mcg/actuati 00:00: every 6 [place] on inhaler 00 (six) Medical hours as Branch needed for Wheezing or Shortness of Breath. albuterol Yes [id number] 2{puff} Inhale 2 [facility] 90 7-27 Puffs ity of mcg/actuati 00:00: every 6 [place] on inhaler 00 (six) Medical hours as Branch needed for Wheezing or Shortness of Breath. albuterol Yes [id number] 2{puff} Inhale 2 [facility] 90 7-27 Puffs ity of mcg/actuati 00:00: every 6 [place] on inhaler 00 (six) Medical hours as Branch needed for Wheezing or Shortness of Breath. albuterol Yes [id number] 2{puff} Inhale 2 [facility] 90 7-27 Puffs ity of mcg/actuati 00:00: every 6 [place] on inhaler 00 (six) Medical hours as Branch needed for Wheezing or Shortness of Breath. albuterol Yes [id number] 2{puff} Inhale 2 [facility] 90 7-27 Puffs ity of mcg/actuati 00:00: every 6 [place] on inhaler 00 (six) Medical hours as Branch needed for Wheezing or Shortness of Breath. albuterol Yes [id number] 2{puff} Inhale 2 [facility] 90 7-27 Puffs ity of mcg/actuati 00:00: every 6 [place] on inhaler 00 (six) Medical hours as Branch needed for Wheezing or Shortness of Breath. albuterol Yes [id number] 2{puff} Inhale 2 [facility] 90 7-27 Puffs ity of mcg/actuati 00:00: every 6 [place] on inhaler 00 (six) Medical hours as Branch needed for Wheezing or Shortness of Breath. albuterol Yes [id number] 2{puff} Inhale 2 [facility] 90 7-27 Puffs ity of mcg/actuati 00:00: every 6 [place] on inhaler 00 (six) Medical hours as Branch needed for Wheezing or Shortness of Breath. albuterol Yes [id number] 2{puff} Inhale 2 [facility] 90 7-27 Puffs ity of mcg/actuati 00:00: every 6 [place] on inhaler 00 (six) Medical hours as Branch needed for Wheezing or Shortness of Breath. albuterol Yes [id number] 2{puff} Inhale 2 [facility] 90 7-27 Puffs ity of mcg/actuati 00:00: every 6 [place] on inhaler 00 (six) Medical hours as Branch needed for Wheezing or Shortness of Breath. albuterol Yes [id number] 2{puff} Inhale 2 [facility] 90 7-27 Puffs ity of mcg/actuati 00:00: every 6 [place] on inhaler 00 (six) Medical hours as Branch needed for Wheezing or Shortness of Breath. albuterol Yes [id number] 2{puff} Inhale 2 [facility] 90 7-27 Puffs ity of mcg/actuati 00:00: every 6 [place] on inhaler 00 (six) Medical hours as Branch needed for Wheezing or Shortness of Breath. albuterol Yes [id number] 2{puff} Inhale 2 [facility] 90 7-27 Puffs ity of mcg/actuati 00:00: every 6 [place] on inhaler 00 (six) Medical hours as Branch needed for Wheezing or Shortness of Breath. albuterol Yes [id number] 2{puff} Inhale 2 [facility] 90 7-27 Puffs ity of mcg/actuati 00:00: every 6 [place] on inhaler 00 (six) Medical hours as Branch needed for Wheezing or Shortness of Breath. albuterol Yes [id number] 2{puff} Inhale 2 [facility] 90 7-27 Puffs ity of mcg/actuati 00:00: every 6 [place] on inhaler 00 (six) Medical hours as Branch needed for Wheezing or Shortness of Breath. albuterol Yes [id number] 2{puff} Inhale 2 [facility] 90 7-27 Puffs ity of mcg/actuati 00:00: every 6 [place] on inhaler 00 (six) Medical hours as Branch needed for Wheezing or Shortness of Breath. albuterol Yes [id number] 2{puff} Inhale 2 [facility] 90 7-27 Puffs ity of mcg/actuati 00:00: every 6 [place] on inhaler 00 (six) Medical hours as Branch needed for Wheezing or Shortness of Breath. albuterol 2022- No [id number] 2{puff} Inhale 2 [facility] 90 7-27 01-05 Puffs ity of mcg/actuati 00:00: 00:00 every 6 [place] on inhaler 00 :00 (six) Medical hours as Branch needed for Wheezing or Shortness of Breath. albuterol 2022- No [id number] 2{puff} Inhale 2 [facility] 90 7-27 01-05 Puffs ity of mcg/actuati 00:00: 00:00 every 6 [place] on inhaler 00 :00 (six) Medical hours as Branch needed for Wheezing or Shortness of Breath. albuterol 2022- No [id number] 2{puff} Inhale 2 [facility] 90 7-27 01-05 Puffs ity of mcg/actuati 00:00: 00:00 every 6 [place] on inhaler 00 :00 (six) Medical hours as Branch needed for Wheezing or Shortness of Breath. albuterol 2022- No [id number] 2{puff} Inhale 2 [facility] 90 7-27 01-05 Puffs ity of mcg/actuati 00:00: 00:00 every 6 [place] on inhaler 00 :00 (six) Medical hours as Branch needed for Wheezing or Shortness of Breath. levothyroxi Yes [id number] 150ug Take 1 [facility] ne 150 mcg 7-05 tablet by ity of tablet 00:00: mouth [place] 00 every Medical morning. Branch Diclofenac Yes [id number] Apply to [facility] Sodium 7-05 area(s) 4 ity of (VOLTAREN) 00:00: (four) [place] 1 % gel 00 times Medical daily. Branch Apply 4 g qid baclofen 10 Yes [id number] 10mg Take 1 [facility] mg tablet 7-05 tablet by ity o f 00:00: mouth 3 [place] 00 (three) Medical times Branch daily as needed for Pain (scale 7-10). docusate Yes [id number] 100mg Take 1 Un renetta 100 mg 7-05 capsule by ity of capsule 00:00: mouth 2 [place] 00 (two) Medical times Branch daily. glipiZIDE Yes [id number] 2.5mg Take 1 U nivers XL 2.5 mg 7-05 tablet by ity o f 24 hr 00:00: mouth 2 [place] tablet 00 (two) Medical times Branch daily. Lidocaine 5 Yes [id number] Apply to [facility] % cream 7-05 area(s) 2 ity of 00:00: (two) [place] 00 times Medical daily as Branch needed for Pain (scale 4-6). Apply 5g to affected areas BID PRN levothyroxi Yes [id number] 150ug Take 1 [facility] ne 150 mcg 7-05 tablet by ity of tablet 00:00: mouth [place] 00 every Medical morning. Branch Diclofenac Yes [id number] Apply to [facility] Sodium 7-05 area(s) 4 ity of (VOLTAREN) 00:00: (four) [place] 1 % gel 00 times Medical daily. Branch Apply 4 g qid baclofen 10 Yes [id number] 10mg Take 1 [facility] mg tablet 7-05 tablet by ity o f 00:00: mouth 3 [place] 00 (three) Medical times Branch daily as needed for Pain (scale 7-10). docusate 2021-0 Yes [id number] 100mg Take 1 Un renetta 100 mg 7-05 capsule by ity of capsule 00:00: mouth 2 [place] 00 (two) Medical times Branch daily. glipiZIDE 2022-0 Yes [id number] 2.5mg Take 1 U nivers XL 2.5 mg 7-05 tablet by ity o f 24 hr 00:00: mouth 2 [place] tablet 00 (two) Medical times Branch daily. Lidocaine 5 2021-0 Yes [id number] Apply to [facility] % cream 7-05 area(s) 2 ity of 00:00: (two) [place] 00 times Medical daily as Branch needed for Pain (scale 4-6). Apply 5g to affected areas BID PRN levothyroxi 0 Yes [id number] 150ug Take 1 [facility] ne 150 mcg 7-05 tablet by ity of tablet 00:00: mouth [place] 00 every Medical morning. Branch Diclofenac Yes [id number] Apply to [facility] Sodium 7-05 area(s) 4 ity of (VOLTAREN) 00:00: (four) [place] 1 % gel 00 times Medical daily. Branch Apply 4 g qid baclofen 10 Yes [id number] 10mg Take 1 [facility] mg tablet 7-05 tablet by ity o f 00:00: mouth 3 [place] 00 (three) Medical times Branch daily as needed for Pain (scale 7-10). docusate Yes [id number] 100mg Take 1 Un renetta 100 mg 7-05 capsule by ity of capsule 00:00: mouth 2 [place] 00 (two) Medical times Branch daily. glipiZIDE Yes [id number] 2.5mg Take 1 U nivers XL 2.5 mg 7-05 tablet by ity o f 24 hr 00:00: mouth 2 [place] tablet 00 (two) Medical times Branch daily. Lidocaine 5 Yes [id number] Apply to [facility] % cream 7-05 area(s) 2 ity of 00:00: (two) [place] 00 times Medical daily as Branch needed for Pain (scale 4-6). Apply 5g to affected areas BID PRN levothyroxi 2021-0 Yes [id number] 150ug Take 1 [facility] ne 150 mcg 7-05 tablet by ity of tablet 00:00: mouth [place] 00 every Medical morning. Branch Diclofenac 2021-0 Yes [id number] Apply to [facility] Sodium 7-05 area(s) 4 ity of (VOLTAREN) 00:00: (four) [place] 1 % gel 00 times Medical daily. Branch Apply 4 g qid baclofen 10 Yes [id number] 10mg Take 1 [facility] mg tablet 7-05 tablet by ity o f 00:00: mouth 3 00 (three) Medical times Branch daily as needed for Pain (scale 7-10). docusate 2021-0 Yes [id number] 100mg Take 1 Un [facility] 100 mg 7-05 capsule by ity of capsule 00:00: mouth 2 00 (two) Medical times Branch daily. glipiZIDE Yes [id number] 2.5mg Take 1 U nivers XL 2.5 mg 7-05 tablet by ity o f 24 hr 00:00: mouth 2 [place] tablet 00 (two) Medical times Branch daily. Lidocaine 5 Yes [id number] Apply to [facility] % cream 7-05 area(s) 2 ity of 00:00: (two) [place] 00 times Medical daily as Branch needed for Pain (scale 4-6). Apply 5g to affected areas BID PRN levothyroxi Yes [id number] 150ug Take 1 [facility] ne 150 mcg 7-05 tablet by ity of tablet 00:00: mouth [place] 00 every Medical morning. Branch Diclofenac Yes [id number] Apply to [facility] Sodium 7-05 area(s) 4 ity of (VOLTAREN) 00:00: (four) [place] 1 % gel 00 times Medical daily. Branch Apply 4 g qid baclofen 10 Yes [id number] 10mg Take 1 [facility] mg tablet 7-05 tablet by ity o f 00:00: mouth 3 00 (three) Medical times Branch daily as needed for Pain (scale 7-10). docusate 0 Yes [id number] 100mg Take 1 Un renetta 100 mg 7-05 capsule by ity of capsule 00:00: mouth 2 [place] 00 (two) Medical times Branch daily. glipiZIDE 2021- Yes [id number] 2.5mg Take 1 U nivers XL 2.5 mg 7-05 tablet by ity o f 24 hr 00:00: mouth 2 [place] tablet 00 (two) Medical times Branch daily. Lidocaine 5 2021-0 Yes [id number] Apply to [facility] % cream 7-05 area(s) 2 ity of 00:00: (two) [place] 00 times Medical daily as Branch needed for Pain (scale 4-6). Apply 5g to affected areas BID PRN levothyroxi 2021-0 Yes [id number] 150ug Take 1 [facility] ne 150 mcg 7-05 tablet by ity of tablet 00:00: mouth [place] 00 every Medical morning. Branch Diclofenac 2021- Yes [id number] Apply to [facility] Sodium 7-05 area(s) 4 ity of (VOLTAREN) 00:00: (four) [place] 1 % gel 00 times Medical daily. Branch Apply 4 g qid baclofen 10 Yes [id number] 10mg Take 1 [facility] mg tablet 7-05 tablet by ity o f 00:00: mouth 3 [place] 00 (three) Medical times Branch daily as needed for Pain (scale 7-10). docusate Yes [id number] 100mg Take 1 Un renetta 100 mg 7-05 capsule by ity of capsule 00:00: mouth 2 [place] 00 (two) Medical times Branch daily. glipiZIDE Yes [id number] 2.5mg Take 1 U nivers XL 2.5 mg 7-05 tablet by ity o f 24 hr 00:00: mouth 2 [place] tablet 00 (two) Medical times Branch daily. Lidocaine 5 Yes [id number] Apply to [facility] % cream 7-05 area(s) 2 ity of 00:00: (two) [place] 00 times Medical daily as Branch needed for Pain (scale 4-6). Apply 5g to affected areas BID PRN levothyroxi 0 Yes [id number] 150ug Take 1 [facility] ne 150 mcg 7-05 tablet by ity of tablet 00:00: mouth [place] 00 every Medical morning. Branch Diclofenac Yes [id number] Apply to [facility] Sodium 7-05 area(s) 4 ity of (VOLTAREN) 00:00: (four) [place] 1 % gel 00 times Medical daily. Branch Apply 4 g qid baclofen 10 Yes [id number] 10mg Take 1 [facility] mg tablet 7-05 tablet by ity o f 00:00: mouth 3 [place] 00 (three) Medical times Branch daily as needed for Pain (scale 7-10). docusate 0 Yes [id number] 100mg Take 1 Un renetta 100 mg 7-05 capsule by ity of capsule 00:00: mouth 2 [place] 00 (two) Medical times Branch daily. glipiZIDE Yes [id number] 2.5mg Take 1 U nivers XL 2.5 mg 7-05 tablet by ity o f 24 hr 00:00: mouth 2 [place] tablet 00 (two) Medical times Branch daily. Lidocaine 5 2021-0 Yes [id number] Apply to [facility] % cream 7-05 area(s) 2 ity of 00:00: (two) [place] 00 times Medical daily as Branch needed for Pain (scale 4-6). Apply 5g to affected areas BID PRN levothyroxi 2021- Yes [id number] 150ug Take 1 [facility] ne 150 mcg 7-05 tablet by ity of tablet 00:00: mouth [place] 00 every Medical morning. Branch Diclofenac Yes [id number] Apply to [facility] Sodium 7-05 area(s) 4 ity of (VOLTAREN) 00:00: (four) [place] 1 % gel 00 times Medical daily. Branch Apply 4 g qid baclofen 10 Yes [id number] 10mg Take 1 [facility] mg tablet 7-05 tablet by ity o f 00:00: mouth 3 [place] 00 (three) Medical times Branch daily as needed for Pain (scale 7-10). docusate Yes [id number] 100mg Take 1 Un renetta 100 mg 7-05 capsule by ity of capsule 00:00: mouth 2 [place] 00 (two) Medical times Branch daily. glipiZIDE Yes [id number] 2.5mg Take 1 U nivers XL 2.5 mg 7-05 tablet by ity o f 24 hr 00:00: mouth 2 [place] tablet 00 (two) Medical times Branch daily. Lidocaine 5 2021- Yes [id number] Apply to [facility] % cream 7-05 area(s) 2 ity of 00:00: (two) [place] 00 times Medical daily as Branch needed for Pain (scale 4-6). Apply 5g to affected areas BID PRN levothyroxi 2021-0 Yes [id number] 150ug Take 1 [facility] ne 150 mcg 7-05 tablet by ity of tablet 00:00: mouth [place] 00 every Medical morning. Branch Diclofenac 2021-0 Yes [id number] Apply to [facility] Sodium 7-05 area(s) 4 ity of (VOLTAREN) 00:00: (four) [place] 1 % gel 00 times Medical daily. Branch Apply 4 g qid baclofen 10 0 Yes [id number] 10mg Take 1 [facility] mg tablet 7-05 tablet by ity o f 00:00: mouth 3 00 (three) Medical times Branch daily as needed for Pain (scale 7-10). docusate 2021-0 Yes [id number] 100mg Take 1 Un renetta 100 mg 7-05 capsule by ity of capsule 00:00: mouth 2 [place] 00 (two) Medical times Branch daily. glipiZIDE 2021-0 Yes [id number] 2.5mg Take 1 U nivers XL 2.5 mg 7-05 tablet by ity o f 24 hr 00:00: mouth 2 [place] tablet 00 (two) Medical times Branch daily. Lidocaine 5 2021-0 Yes [id number] Apply to [facility] % cream 7-05 area(s) 2 ity of 00:00: (two) [place] 00 times Medical daily as Branch needed for Pain (scale 4-6). Apply 5g to affected areas BID PRN levothyroxi 2021-0 Yes [id number] 150ug Take 1 [facility] ne 150 mcg 7-05 tablet by ity of tablet 00:00: mouth [place] 00 every Medical morning. Branch Diclofenac 0 Yes [id number] Apply to [facility] Sodium 7-05 area(s) 4 ity of (VOLTAREN) 00:00: (four) [place] 1 % gel 00 times Medical daily. Branch Apply 4 g qid baclofen 10 2021-0 Yes [id number] 10mg Take 1 [facility] mg tablet 7-05 tablet by ity o f 00:00: mouth 3 00 (three) Medical times Branch daily as needed for Pain (scale 7-10). docusate 2021-0 Yes [id number] 100mg Take 1 Un renetta 100 mg 7-05 capsule by ity of capsule 00:00: mouth 2 00 (two) Medical times Branch daily. glipiZIDE 2021-0 Yes [id number] 2.5mg Take 1 U nivers XL 2.5 mg 7-05 tablet by ity o f 24 hr 00:00: mouth 2 [place] tablet 00 (two) Medical times Branch daily. Lidocaine 5 2021-0 Yes [id number] Apply to [facility] % cream 7-05 area(s) 2 ity of 00:00: (two) [place] 00 times Medical daily as Branch needed for Pain (scale 4-6). Apply 5g to affected areas BID PRN levothyroxi Yes [id number] 150ug Take 1 [facility] ne 150 mcg 7-05 tablet by ity of tablet 00:00: mouth [place] 00 every Medical morning. Branch Diclofenac Yes [id number] Apply to [facility] Sodium 7-05 area(s) 4 [facility] of (VOLTAREN) 00:00: (four) [place] 1 % gel 00 times Medical daily. Branch Apply 4 g qid baclofen 10 Yes [id number] 10mg Take 1 [facility] mg tablet 7-05 tablet by [facility] o f 00:00: mouth 3 [place] 00 (three) Medical times Branch daily as needed for Pain (scale 7-10). docusate Yes [id number] 100mg Take 1 Un renetta 100 mg 7-05 capsule by [facility] of capsule 00:00: mouth 2 [place] 00 (two) Medical times Branch daily. glipiZIDE Yes [id number] 2.5mg Take 1 [facility] XL 2.5 mg 7-05 tablet by [facility] o f 24 hr 00:00: mouth 2 [place] tablet 00 (two) Medical times Branch daily. Lidocaine 5 Yes [id number] Apply to [facility] % cream 7-05 area(s) 2 [facility] of 00:00: (two) [place] 00 times Medical daily as Branch needed for Pain (scale 4-6). Apply 5g to affected areas BID PRN levothyroxi Yes [id number] 150ug Take 1 [facility] ne 150 mcg 7-05 tablet by [facility] of tablet 00:00: mouth [place] 00 every Medical morning. Branch Diclofenac Yes [id number] Apply to [facility] Sodium 7-05 area(s) 4 [facility] of (VOLTAREN) 00:00: (four) [place] 1 % gel 00 times Medical daily. Branch Apply 4 g qid baclofen 10 Yes [id number] 10mg Take 1 [facility] mg tablet 7-05 tablet by [facility] o f 00:00: mouth 3 [place] 00 (three) Medical times Branch daily as needed for Pain (scale 7-10). docusate 0 Yes [id number] 100mg Take 1 [facility] renetta 100 mg 7-05 capsule by [facility] capsule 00:00: mouth 2 [place] 00 (two) Medical times Branch daily. glipiZIDE 2021- Yes [id number] 2.5mg Take 1 [facility] XL 2.5 mg 7-05 tablet by [facility] o f 24 hr 00:00: mouth 2 [place] tablet 00 (two) Medical times Branch daily. Lidocaine 5 2021- Yes [id number] Apply to [facility] % cream 7-05 area(s) 2 [facility] of 00:00: (two) [place] 00 times Medical daily as Branch needed for Pain (scale 4-6). Apply 5g to affected areas BID PRN levothyroxi 2021-0 Yes [id number] 150ug Take 1 [facility] ne 150 mcg 7-05 tablet by [facility] of tablet 00:00: mouth [place] 00 every Medical morning. Branch Diclofenac Yes [id number] Apply to [facility] Sodium 7-05 area(s) 4 [facility] of (VOLTAREN) 00:00: (four) [place] 1 % gel 00 times Medical daily. Branch Apply 4 g qid baclofen 10 Yes [id number] 10mg Take 1 [facility] mg tablet 7-05 tablet by [facility] o f 00:00: mouth 3 [place] 00 (three) Medical times Branch daily as needed for Pain (scale 7-10). docusate 0 Yes [id number] 100mg Take 1 [facility] renetta 100 mg 7-05 capsule by [facility] capsule 00:00: mouth 2 [place] 00 (two) Medical times Branch daily. glipiZIDE 0 Yes [id number] 2.5mg Take 1 [facility] XL 2.5 mg 7-05 tablet by [facility] o f 24 hr 00:00: mouth 2 [place] tablet 00 (two) Medical times Branch daily. Lidocaine 5 2021- Yes [id number] Apply to [facility] % cream 7-05 area(s) 2 [facility] of 00:00: (two) [place] 00 times Medical daily as Branch needed for Pain (scale 4-6). Apply 5g to affected areas BID PRN levothyroxi 2021-0 Yes [id number] 150ug Take 1 [facility] ne 150 mcg 7-05 tablet by [facility] of tablet 00:00: mouth [place] 00 every Medical morning. Branch Diclofenac 2021-0 Yes [id number] Apply to [facility] Sodium 7-05 area(s) 4 [facility] of (VOLTAREN) 00:00: (four) [place] 1 % gel 00 times Medical daily. Branch Apply 4 g qid baclofen 10 Yes [id number] 10mg Take 1 [facility] mg tablet 7-05 tablet by [facility] o f 00:00: mouth 3 00 (three) Medical times Branch daily as needed for Pain (scale 7-10). docusate 0 Yes [id number] 100mg Take 1 [facility] renet[facility] 100 mg 7-05 capsule by [facility] capsule 00:00: mouth 2 (two) Medical times Branch daily. glipiZIDE Yes [id number] 2.5mg Take 1 [facility] XL 2.5 mg 7-05 tablet by [facility] o f 24 hr 00:00: mouth 2 [place] tablet 00 (two) Medical times Branch daily. Lidocaine 5 0 Yes [id number] Apply to [facility] % cream 7-05 area(s) 2 [facility] of 00:00: (two) [place] 00 times Medical daily as Branch needed for Pain (scale 4-6). Apply 5g to affected areas BID PRN levothyroxi 0 Yes [id number] 150ug Take 1 [facility] ne 150 mcg 7-05 tablet by [facility] of tablet 00:00: mouth 00 every Medical morning. Branch Diclofenac Yes [id number] Apply to [facility] Sodium 7-05 area(s) 4 [facility] of (VOLTAREN) 00:00: (four) [place] 1 % gel 00 times Medical daily. Branch Apply 4 g qid baclofen 10 Yes [id number] 10mg Take 1 [facility] mg tablet 7-05 tablet by [facility] o f 00:00: mouth 3 00 (three) Medical times Branch daily as needed for Pain (scale 7-10). docusate 2021-0 Yes [id number] 100mg Take 1 [facility] renet[facility] 100 mg 7-05 capsule by [facility] capsule 00:00: mouth 2 00 (two) Medical times Branch daily. glipiZIDE 0 Yes [id number] 2.5mg Take 1 [facility] XL 2.5 mg 7-05 tablet by [facility] o f 24 hr 00:00: mouth 2 [place] tablet 00 (two) Medical times Branch daily. Lidocaine 5 0 Yes [id number] Apply to [facility] % cream 7-05 area(s) 2 [facility] of 00:00: (two) [place] 00 times Medical daily as Branch needed for Pain (scale 4-6). Apply 5g to affected areas BID PRN levothyroxi 2021-0 Yes [id number] 150ug Take 1 [facility] ne 150 mcg 7-05 tablet by [facility] of tablet 00:00: mouth [place] 00 every Medical morning. Branch Diclofenac 2021-0 Yes [id number] Apply to [facility] Sodium 7-05 area(s) 4 [facility] of (VOLTAREN) 00:00: (four) [place] 1 % gel 00 times Medical daily. Branch Apply 4 g qid baclofen 10 0 Yes [id number] 10mg Take 1 [facility] mg tablet 7-05 tablet by [facility] o f 00:00: mouth 3 [place] 00 (three) Medical times Branch daily as needed for Pain (scale 7-10). docusate Yes [id number] 100mg Take 1 [facility] renetta 100 mg 7-05 capsule by [facility] of capsule 00:00: mouth 2 [place] 00 (two) Medical times Branch daily. glipiZIDE Yes [id number] 2.5mg Take 1 [facility] XL 2.5 mg 7-05 tablet by [facility] o f 24 hr 00:00: mouth 2 [place] tablet 00 (two) Medical times Branch daily. Lidocaine 5 Yes [id number] Apply to [facility] % cream 7-05 area(s) 2 [facility] of 00:00: (two) [place] 00 times Medical daily as Branch needed for Pain (scale 4-6). Apply 5g to affected areas BID PRN levothyroxi 2021-0 Yes [id number] 150ug Take 1 [facility] ne 150 mcg 7-05 tablet by [facility] of tablet 00:00: mouth [place] 00 every Medical morning. Branch Diclofenac 2021-0 Yes [id number] Apply to [facility] Sodium 7-05 area(s) 4 [facility] of (VOLTAREN) 00:00: (four) [place] 1 % gel 00 times Medical daily. Branch Apply 4 g qid baclofen 10 2021-0 Yes [id number] 10mg Take 1 [facility] mg tablet 7-05 tablet by [facility] o f 00:00: mouth 3 [place] 00 (three) Medical times Branch daily as needed for Pain (scale 7-10). docusate Yes [id number] 100mg Take 1 [facility] renetta 100 mg 7-05 capsule by [facility] capsule 00:00: mouth 2 [place] 00 (two) Medical times Branch daily. glipiZIDE 0 Yes [id number] 2.5mg Take 1 [facility] XL 2.5 mg 7-05 tablet by [facility] o f 24 hr 00:00: mouth 2 [place] tablet 00 (two) Medical times Branch daily. Lidocaine 5 2021- Yes [id number] Apply to [facility] % cream 7-05 area(s) 2 [facility] of 00:00: (two) [place] 00 times Medical daily as Branch needed for Pain (scale 4-6). Apply 5g to affected areas BID PRN levothyroxi Yes [id number] 150ug Take 1 [facility] ne 150 mcg 7-05 tablet by [facility] of tablet 00:00: mouth [place] 00 every Medical morning. Branch Diclofenac Yes [id number] Apply to [facility] Sodium 7-05 area(s) 4 [facility] of (VOLTAREN) 00:00: (four) [place] 1 % gel 00 times Medical daily. Branch Apply 4 g qid baclofen 10 Yes [id number] 10mg Take 1 [facility] mg tablet 7-05 tablet by [facility] o f 00:00: mouth 3 [place] 00 (three) Medical times Branch daily as needed for Pain (scale 7-10). docusate 0 Yes [id number] 100mg Take 1 [facility] renetta 100 mg 7-05 capsule by [facility] of capsule 00:00: mouth 2 [place] 00 (two) Medical times Branch daily. glipiZIDE 2021-0 Yes [id number] 2.5mg Take 1 [facility] XL 2.5 mg 7-05 tablet by [facility] o f 24 hr 00:00: mouth 2 [place] tablet 00 (two) Medical times Branch daily. Lidocaine 5 2021- Yes [id number] Apply to [facility] % cream 7-05 area(s) 2 [facility] of 00:00: (two) [place] 00 times Medical daily as Branch needed for Pain (scale 4-6). Apply 5g to affected areas BID PRN levothyroxi 2021-0 Yes [id number] 150ug Take 1 [facility] ne 150 mcg 7-05 tablet by [facility] of tablet 00:00: mouth [place] 00 every Medical morning. Branch Diclofenac 2021- Yes [id number] Apply to [facility] Sodium 7-05 area(s) 4 [facility] of (VOLTAREN) 00:00: (four) [place] 1 % gel 00 times Medical daily. Branch Apply 4 g qid baclofen 10 Yes [id number] 10mg Take 1 [facility] mg tablet 7-05 tablet by [facility] o f 00:00: mouth 3 [place] (three) Medical times Branch daily as needed for Pain (scale 7-10). docusate 2021-0 Yes [id number] 100mg Take 1 [facility] renetta 100 mg 7-05 capsule by [facility] capsule 00:00: mouth 2 00 (two) Medical times Branch daily. glipiZIDE 2021-0 Yes [id number] 2.5mg Take 1 [facility] XL 2.5 mg 7-05 tablet by [facility] o f 24 hr 00:00: mouth 2 [place] tablet 00 (two) Medical times Branch daily. Lidocaine 5 0 Yes [id number] Apply to [facility] % cream 7-05 area(s) 2 [facility] of 00:00: (two) [place] 00 times Medical daily as Branch needed for Pain (scale 4-6). Apply 5g to affected areas BID PRN levothyroxi 0 Yes [id number] 150ug Take 1 [facility] ne 150 mcg 7-05 tablet by [facility] of tablet 00:00: mouth [place] 00 every Medical morning. Branch Diclofenac Yes [id number] Apply to [facility] Sodium 7-05 area(s) 4 [facility] of (VOLTAREN) 00:00: (four) [place] 1 % gel 00 times Medical daily. Branch Apply 4 g qid baclofen 10 0 Yes [id number] 10mg Take 1 [facility] mg tablet 7-05 tablet by [facility] o f 00:00: mouth 3 [place] 00 (three) Medical times Branch daily as needed for Pain (scale 7-10). docusate 2021-0 Yes [id number] 100mg Take 1 Un renetta 100 mg 7-05 capsule by [facility] of capsule 00:00: mouth 2 [place] 00 (two) Medical times Branch daily. glipiZIDE 2021-0 Yes [id number] 2.5mg Take 1 [facility] n[facility] XL 2.5 mg 7-05 tablet by it[facility] o f 24 hr 00:00: mouth 2 [place] tablet 00 (two) Medical times Branch daily. Lidocaine 5 2021-0 Yes [id number] Apply to [facility] % cream 7-05 area(s) 2 [facility] of 00:00: (two) [place] 00 times Medical daily as Branch needed for Pain (scale 4-6). Apply 5g to affected areas BID PRN levothyroxi 2021-0 Yes [id number] 150ug Take 1 [facility] ne 150 mcg 7-05 tablet by [facility] of tablet 00:00: mouth [place] 00 every Medical morning. Branch Diclofenac 2021- Yes [id number] Apply to [facility] Sodium 7-05 area(s) 4 [facility] of (VOLTAREN) 00:00: (four) [place] 1 % gel 00 times Medical daily. Branch Apply 4 g qid baclofen 10 0 Yes [id number] 10mg Take 1 [facility] mg tablet 7-05 tablet by [facility] o f 00:00: mouth 3 [place] 00 (three) Medical times Branch daily as needed for Pain (scale 7-10). glipiZIDE Yes [id number] 2.5mg Take 1 [facility] nivers XL 2.5 mg 7-05 tablet by it[facility] o f 24 hr 00:00: mouth 2 [place] tablet 00 (two) Medical times Branch daily. Lidocaine 5 2021- Yes [id number] Apply to [facility] % cream 7-05 area(s) 2 [facility] of 00:00: (two) [place] 00 times Medical daily as Branch needed for Pain (scale 4-6). Apply 5g to affected areas BID PRN levothyroxi 2021-0 Yes [id number] 150ug Take 1 [facility] ne 150 mcg 7-05 tablet by [facility] of tablet 00:00: mouth [place] 00 every Medical morning. Branch Diclofenac 2021-0 Yes [id number] Apply to [facility] Sodium 7-05 area(s) 4 [facility] of (VOLTAREN) 00:00: (four) [place] 1 % gel 00 times Medical daily. Branch Apply 4 g qid baclofen 10 0 Yes [id number] 10mg Take 1 [facility] mg tablet 7-05 tablet by [facility] o f 00:00: mouth 3 [place] 00 (three) Medical times Branch daily as needed for Pain (scale 7-10). glipiZIDE 0 Yes [id number] 2.5mg Take 1 [facility] n[facility] XL 2.5 mg 7-05 tablet by it[facility] o f 24 hr 00:00: mouth 2 [place] tablet 00 (two) Medical times Branch daily. Lidocaine 5 2021- Yes [id number] Apply to [facility] % cream 7-05 area(s) 2 [facility] of 00:00: (two) [place] 00 times Medical daily as Branch needed for Pain (scale 4-6). Apply 5g to affected areas BID PRN levothyroxi 2021-0 Yes [id number] 150ug Take 1 [facility] ne 150 mcg 7-05 tablet by [facility] of tablet 00:00: mouth [place] 00 every Medical morning. Branch Diclofenac Yes [id number] Apply to [facility] Sodium 7-05 area(s) 4 [facility] of (VOLTAREN) 00:00: (four) [place] 1 % gel 00 times Medical daily. Branch Apply 4 g qid baclofen 10 Yes [id number] 10mg Take 1 [facility] mg tablet 7-05 tablet by [facility] o f 00:00: mouth 3 [place] 00 (three) Medical times Branch daily as needed for Pain (scale 7-10). glipiZIDE Yes [id number] 2.5mg Take 1 [facility] n[facility] XL 2.5 mg 7-05 tablet by it[facility] o f 24 hr 00:00: mouth 2 [place] tablet 00 (two) Medical times Branch daily. Lidocaine 5 Yes [id number] Apply to [facility] % cream 7-05 area(s) 2 [facility] of 00:00: (two) [place] 00 times Medical daily as Branch needed for Pain (scale 4-6). Apply 5g to affected areas BID PRN levothyroxi Yes [id number] 150ug Take 1 [facility] ne 150 mcg 7-05 tablet by [facility] of tablet 00:00: mouth [place] 00 every Medical morning. Branch Diclofenac 2021- Yes [id number] Apply to [facility] Sodium 7-05 area(s) 4 [facility] of (VOLTAREN) 00:00: (four) [place] 1 % gel 00 times Medical daily. Branch Apply 4 g qid baclofen 10 Yes [id number] 10mg Take 1 [facility] mg tablet 7-05 tablet by [facility] o f 00:00: mouth 3 [place] 00 (three) Medical times Branch daily as needed for Pain (scale 7-10). glipiZIDE 0 Yes [id number] 2.5mg Take 1 [facility] n[facility] XL 2.5 mg 7-05 tablet by ity o f 24 hr 00:00: mouth 2 [place] tablet 00 (two) Medical times Branch daily. Lidocaine 5 2021-0 Yes [id number] Apply to [facility] % cream 7-05 area(s) 2 [facility] of 00:00: (two) [place] 00 times Medical daily as Branch needed for Pain (scale 4-6). Apply 5g to affected areas BID PRN levothyroxi 2021-0 Yes [id number] 150ug Take 1 [facility] ne 150 mcg 7-05 tablet by [facility] of tablet 00:00: mouth [place] 00 every Medical morning. Branch Diclofenac 2021-0 Yes [id number] Apply to [facility] Sodium 7-05 area(s) 4 [facility] of (VOLTAREN) 00:00: (four) [place] 1 % gel 00 times Medical daily. Branch Apply 4 g qid baclofen 10 Yes [id number] 10mg Take 1 [facility] mg tablet 7-05 tablet by [facility] o f 00:00: mouth 3 [place] 00 (three) Medical times Branch daily as needed for Pain (scale 7-10). glipiZIDE Yes [id number] 2.5mg Take 1 [facility] n[facility] XL 2.5 mg 7-05 tablet by ity o f 24 hr 00:00: mouth 2 [place] tablet 00 (two) Medical times Branch daily. Lidocaine 5 0 Yes [id number] Apply to [facility] % cream 7-05 area(s) 2 [facility] of 00:00: (two) [place] 00 times Medical daily as Branch needed for Pain (scale 4-6). Apply 5g to affected areas BID PRN levothyroxi 2021-0 Yes [id number] 150ug Take 1 [facility] ne 150 mcg 7-05 tablet by [facility] of tablet 00:00: mouth [place] 00 every Medical morning. Branch Diclofenac 2021-0 Yes [id number] Apply to [facility] Sodium 7-05 area(s) 4 [facility] of (VOLTAREN) 00:00: (four) [place] 1 % gel 00 times Medical daily. Branch Apply 4 g qid baclofen 10 2021-0 Yes [id number] 10mg Take 1 [facility] mg tablet 7-05 tablet by it[facility] o f 00:00: mouth 3 [place] 00 (three) Medical times Branch daily as needed for Pain (scale 7-10). glipiZIDE 2021-0 Yes [id number] 2.5mg Take 1 [facility] n[facility] XL 2.5 mg 7-05 tablet by ity o f 24 hr 00:00: mouth 2 [place] tablet 00 (two) Medical times Branch daily. Lidocaine 5 2021-0 Yes [id number] Apply to [facility] % cream 7-05 area(s) 2 [facility] of 00:00: (two) [place] 00 times Medical daily as Branch needed for Pain (scale 4-6). Apply 5g to affected areas BID PRN levothyroxi 2021-0 Yes [id number] 150ug Take 1 [facility] ne 150 mcg 7-05 tablet by [facility] of tablet 00:00: mouth [place] 00 every Medical morning. Branch Diclofenac 2021-0 Yes [id number] Apply to [facility] Sodium 7-05 area(s) 4 ity of (VOLTAREN) 00:00: (four) [place] 1 % gel 00 times Medical daily. Branch Apply 4 g qid glipiZIDE 2021-0 Yes [id number] 2.5mg Take 1 [facility] nivers XL 2.5 mg 7-05 tablet by ity o f 24 hr 00:00: mouth 2 [place] tablet 00 (two) Medical times Branch daily. Lidocaine 5 2021-0 Yes [id number] Apply to [facility] % cream 7-05 area(s) 2 [facility] of 00:00: (two) [place] 00 times Medical daily as Branch needed for Pain (scale 4-6). Apply 5g to affected areas BID PRN levothyroxi 2021-0 Yes [id number] 150ug Take 1 [facility] ne 150 mcg 7-05 tablet by [facility] of tablet 00:00: mouth [place] 00 every Medical morning. Branch Diclofenac 2021-0 Yes [id number] Apply to [facility] Sodium 7-05 area(s) 4 [facility]y of (VOLTAREN) 00:00: (four) [place] 1 % gel 00 times Medical daily. Branch Apply 4 g qid glipiZIDE 2021-0 Yes [id number] 2.5mg Take 1 [facility] nivers XL 2.5 mg 7-05 tablet by ity o f 24 hr 00:00: mouth 2 [place] tablet 00 (two) Medical times Branch daily. Lidocaine 5 2021-0 Yes [id number] Apply to [facility] % cream 7-05 area(s) 2 [facility] of 00:00: (two) [place] 00 times Medical daily as Branch needed for Pain (scale 4-6). Apply 5g to affected areas BID PRN levothyroxi 2022-0 Yes [id number] 150ug Take 1 [facility] ne 150 mcg 7-05 tablet by [facility] of tablet 00:00: mouth [place] 00 every Medical morning. Branch Diclofenac 2021-0 Yes [id number] Apply to [facility] Sodium 7-05 area(s) 4 [facility]y of (VOLTAREN) 00:00: (four) [place] 1 % gel 00 times Medical daily. Branch Apply 4 g qid glipiZIDE 2021-0 Yes [id number] 2.5mg Take 1 [facility] n[facility] XL 2.5 mg 7-05 tablet by ity o f 24 hr 00:00: mouth 2 [place] tablet 00 (two) Medical times Branch daily. Lidocaine 5 2021-0 Yes [id number] Apply to [facility] % cream 7-05 area(s) 2 [facility] of 00:00: (two) [place] 00 times Medical daily as Branch needed for Pain (scale 4-6). Apply 5g to affected areas BID PRN levothyroxi 2-0 Yes [id number] 150ug Take 1 [facility] ne 150 mcg 7-05 tablet by [facility] of tablet 00:00: mouth [place] 00 every Medical morning. Branch Diclofenac 2021-0 Yes [id number] Apply to [facility] Sodium 7-05 area(s) 4 [facility]y of (VOLTAREN) 00:00: (four) [place] 1 % gel 00 times Medical daily. Branch Apply 4 g qid glipiZIDE 2-0 Yes [id number] 2.5mg Take 1 [facility] n[facility] XL 2.5 mg 7-05 tablet by ity o f 24 hr 00:00: mouth 2 [place] tablet 00 (two) Medical times Branch daily. Lidocaine 5 2021-0 Yes [id number] Apply to [facility] % cream 7-05 area(s) 2 [facility] of 00:00: (two) [place] 00 times Medical daily as Branch needed for Pain (scale 4-6). Apply 5g to affected areas BID PRN levothyroxi 2022-0 Yes [id number] 150ug Take 1 [facility] ne 150 mcg 7-05 tablet by [facility] of tablet 00:00: mouth [place] 00 every Medical morning. Branch Diclofenac 2022-0 Yes [id number] Apply to [facility] Sodium 7-05 area(s) 4 [facility]y of (VOLTAREN) 00:00: (four) [place] 1 % gel 00 times Medical daily. Branch Apply 4 g qid glipiZIDE 2021-0 Yes [id number] 2.5mg Take 1 [facility] n[facility] XL 2.5 mg 7-05 tablet by ity o f 24 hr 00:00: mouth 2 [place] tablet 00 (two) Medical times Branch daily. Lidocaine 5 2021-0 Yes [id number] Apply to [facility] % cream 7-05 area(s) 2 [facility] of 00:00: (two) [place] 00 times Medical daily as Branch needed for Pain (scale 4-6). Apply 5g to affected areas BID PRN levothyroxi 2021-0 Yes [id number] 150ug Take 1 [facility] ne 150 mcg 7-05 tablet by [facility] of tablet 00:00: mouth [place] 00 every Medical morning. Branch Diclofenac 2021-0 Yes [id number] Apply to [facility] Sodium 7-05 area(s) 4 [facility]y of (VOLTAREN) 00:00: (four) [place] 1 % gel 00 times Medical daily. Branch Apply 4 g qid glipiZIDE 2021-0 Yes [id number] 2.5mg Take 1 [facility] n[facility] XL 2.5 mg 7-05 tablet by ity o f 24 hr 00:00: mouth 2 [place] tablet 00 (two) Medical times Branch daily. Lidocaine 5 2021-0 Yes [id number] Apply to [facility] % cream 7-05 area(s) 2 [facility] of 00:00: (two) [place] 00 times Medical daily as Branch needed for Pain (scale 4-6). Apply 5g to affected areas BID PRN levothyroxi 2-0 Yes [id number] 150ug Take 1 [facility] ne 150 mcg 7-05 tablet by [facility] of tablet 00:00: mouth [place] 00 every Medical morning. Branch Diclofenac 2-0 Yes [id number] Apply to [facility] Sodium 7-05 area(s) 4 [facility]y of (VOLTAREN) 00:00: (four) [place] 1 % gel 00 times Medical daily. Branch Apply 4 g qid glipiZIDE 2-0 Yes [id number] 2.5mg Take 1 [facility] n[facility] XL 2.5 mg 7-05 tablet by ity o f 24 hr 00:00: mouth 2 [place] tablet 00 (two) Medical times Branch daily. Lidocaine 5 2021-0 Yes [id number] Apply to [facility] % cream 7-05 area(s) 2 [facility] of 00:00: (two) [place] 00 times Medical daily as Branch needed for Pain (scale 4-6). Apply 5g to affected areas BID PRN levothyroxi 2-0 Yes [id number] 150ug Take 1 [facility] ne 150 mcg 7-05 tablet by [facility] of tablet 00:00: mouth [place] 00 every Medical morning. Branch Diclofenac 2021-0 Yes [id number] Apply to [facility] Sodium 7-05 area(s) 4 ity of (VOLTAREN) 00:00: (four) [place] 1 % gel 00 times Medical daily. Branch Apply 4 g qid glipiZIDE 2021-0 Yes [id number] 2.5mg Take 1 [facility] n[facility] XL 2.5 mg 7-05 tablet by ity o f 24 hr 00:00: mouth 2 [place] tablet 00 (two) Medical times Branch daily. Lidocaine 5 2021-0 Yes [id number] Apply to [facility] % cream 7-05 area(s) 2 [facility] of 00:00: (two) [place] 00 times Medical daily as Branch needed for Pain (scale 4-6). Apply 5g to affected areas BID PRN levothyroxi 2021-0 Yes [id number] 150ug Take 1 [facility] ne 150 mcg 7-05 tablet by [facility] of tablet 00:00: mouth [place] 00 every Medical morning. Branch Diclofenac 2021-0 Yes [id number] Apply to [facility] Sodium 7-05 area(s) 4 [facility]y of (VOLTAREN) 00:00: (four) [place] 1 % gel 00 times Medical daily. Branch Apply 4 g qid glipiZIDE 2021-0 Yes [id number] 2.5mg Take 1 [facility] n[facility] XL 2.5 mg 7-05 tablet by ity o f 24 hr 00:00: mouth 2 [place] tablet 00 (two) Medical times Branch daily. Lidocaine 5 2021-0 Yes [id number] Apply to [facility] % cream 7-05 area(s) 2 [facility]y of 00:00: (two) [place] 00 times Medical daily as Branch needed for Pain (scale 4-6). Apply 5g to affected areas BID PRN levothyroxi 2021-0 Yes [id number] 150ug Take 1 [facility] ne 150 mcg 7-05 tablet by [facility] of tablet 00:00: mouth [place] 00 every Medical morning. Branch Diclofenac 2021-0 Yes [id number] Apply to [facility] Sodium 7-05 area(s) 4 [facility]y of (VOLTAREN) 00:00: (four) [place] 1 % gel 00 times Medical daily. Branch Apply 4 g qid glipiZIDE 2021-0 Yes [id number] 2.5mg Take 1 [facility] n[facility] XL 2.5 mg 7-05 tablet by ity o f 24 hr 00:00: mouth 2 [place] tablet 00 (two) Medical times Branch daily. Lidocaine 5 2021-0 Yes [id number] Apply to [facility] % cream 7-05 area(s) 2 [facility]y of 00:00: (two) [place] 00 times Medical daily as Branch needed for Pain (scale 4-6). Apply 5g to affected areas BID PRN levothyroxi 2021-0 Yes [id number] 150ug Take 1 [facility] ne 150 mcg 7-05 tablet by [facility] of tablet 00:00: mouth [place] 00 every Medical morning. Branch Diclofenac 2021-0 Yes [id number] Apply to [facility] Sodium 7-05 area(s) 4 ity of (VOLTAREN) 00:00: (four) [place] 1 % gel 00 times Medical daily. Branch Apply 4 g qid glipiZIDE 2021-0 Yes [id number] 2.5mg Take 1 [facility] n[facility] XL 2.5 mg 7-05 tablet by ity o f 24 hr 00:00: mouth 2 [place] tablet 00 (two) Medical times Branch daily. Lidocaine 5 2021-0 Yes [id number] Apply to [facility] % cream 7-05 area(s) 2 ity of 00:00: (two) [place] 00 times Medical daily as Branch needed for Pain (scale 4-6). Apply 5g to affected areas BID PRN levothyroxi 2022-0 Yes [id number] 150ug Take 1 [facility] ne 150 mcg 7-05 tablet by [facility] of tablet 00:00: mouth [place] 00 every Medical morning. Branch Diclofenac 2021-0 Yes [id number] Apply to [facility] Sodium 7-05 area(s) 4 ity of (VOLTAREN) 00:00: (four) [place] 1 % gel 00 times Medical daily. Branch Apply 4 g qid glipiZIDE 2022-0 Yes [id number] 2.5mg Take 1 [facility] n[facility] XL 2.5 mg 7-05 tablet by ity o f 24 hr 00:00: mouth 2 [place] tablet 00 (two) Medical times Branch daily. Lidocaine 5 2021-0 Yes [id number] Apply to [facility] % cream 7-05 area(s) 2 ity of 00:00: (two) [place] 00 times Medical daily as Branch needed for Pain (scale 4-6). Apply 5g to affected areas BID PRN levothyroxi 2021-0 Yes [id number] 150ug Take 1 [facility] ne 150 mcg 7-05 tablet by [facility] of tablet 00:00: mouth [place] 00 every Medical morning. Branch Diclofenac 2021-0 Yes [id number] Apply to [facility] Sodium 7-05 area(s) 4 ity of (VOLTAREN) 00:00: (four) [place] 1 % gel 00 times Medical daily. Branch Apply 4 g qid glipiZIDE 2021-0 Yes [id number] 2.5mg Take 1 [facility] n[facility] XL 2.5 mg 7-05 tablet by ity o f 24 hr 00:00: mouth 2 [place] tablet 00 (two) Medical times Branch daily. Lidocaine 5 0 Yes [id number] Apply to [facility] % cream 7-05 area(s) 2 [facility]y of 00:00: (two) [place] 00 times Medical daily as Branch needed for Pain (scale 4-6). Apply 5g to affected areas BID PRN levothyroxi 2021-0 Yes [id number] 150ug Take 1 [facility] ne 150 mcg 7-05 tablet by [facility] of tablet 00:00: mouth [place] 00 every Medical morning. Branch Diclofenac 2021-0 Yes [id number] Apply to [facility] Sodium 7-05 area(s) 4 ity of (VOLTAREN) 00:00: (four) [place] 1 % gel 00 times Medical daily. Branch Apply 4 g qid glipiZIDE 2021-0 Yes [id number] 2.5mg Take 1 [facility] n[facility] XL 2.5 mg 7-05 tablet by ity o f 24 hr 00:00: mouth 2 [place] tablet 00 (two) Medical times Branch daily. Lidocaine 5 2021-0 Yes [id number] Apply to [facility] % cream 7-05 area(s) 2 [facility]y of 00:00: (two) [place] 00 times Medical daily as Branch needed for Pain (scale 4-6). Apply 5g to affected areas BID PRN levothyroxi 2022-0 Yes [id number] 150ug Take 1 [facility] ne 150 mcg 7-05 tablet by [facility] of tablet 00:00: mouth [place] 00 every Medical morning. Branch Diclofenac 2021-0 Yes [id number] Apply to [facility] Sodium 7-05 area(s) 4 ity of (VOLTAREN) 00:00: (four) [place] 1 % gel 00 times Medical daily. Branch Apply 4 g qid glipiZIDE 2021-0 Yes [id number] 2.5mg Take 1 [facility] nivers XL 2.5 mg 7-05 tablet by ity o f 24 hr 00:00: mouth 2 [place] tablet 00 (two) Medical times Branch daily. Lidocaine 5 2021-0 Yes [id number] Apply to [facility] % cream 7-05 area(s) 2 [facility] of 00:00: (two) [place] 00 times Medical daily as Branch needed for Pain (scale 4-6). Apply 5g to affected areas BID PRN levothyroxi 2021-0 Yes [id number] 150ug Take 1 [facility] ne 150 mcg 7-05 tablet by [facility] of tablet 00:00: mouth [place] 00 every Medical morning. Branch Diclofenac 2021-0 Yes [id number] Apply to [facility] Sodium 7-05 area(s) 4 ity of (VOLTAREN) 00:00: (four) [place] 1 % gel 00 times Medical daily. Branch Apply 4 g qid glipiZIDE 2021-0 Yes [id number] 2.5mg Take 1 [facility] XL 2.5 mg 7-05 tablet by it[facility] o f 24 hr 00:00: mouth 2 [place] tablet 00 (two) Medical times Branch daily. Lidocaine 5 2021-0 Yes [id number] Apply to [facility] % cream 7-05 area(s) 2 [facility] of 00:00: (two) [place] 00 times Medical daily as Branch needed for Pain (scale 4-6). Apply 5g to affected areas BID PRN levothyroxi 2-0 Yes [id number] 150ug Take 1 [facility] ne 150 mcg 7-05 tablet by [facility] of tablet 00:00: mouth [place] 00 every Medical morning. Branch Diclofenac 2021-0 Yes [id number] Apply to [facility] Sodium 7-05 area(s) 4 ity of (VOLTAREN) 00:00: (four) [place] 1 % gel 00 times Medical daily. Branch Apply 4 g qid glipiZIDE 2021-0 Yes [id number] 2.5mg Take 1 [facility] n[facility] XL 2.5 mg 7-05 tablet by it[facility] o f 24 hr 00:00: mouth 2 [place] tablet 00 (two) Medical times Branch daily. Lidocaine 5 2021-0 Yes [id number] Apply to [facility] % cream 7-05 area(s) 2 [facility] of 00:00: (two) [place] 00 times Medical daily as Branch needed for Pain (scale 4-6). Apply 5g to affected areas BID PRN levothyroxi 2021-0 Yes [id number] 150ug Take 1 [facility] ne 150 mcg 7-05 tablet by [facility] of tablet 00:00: mouth [place] 00 every Medical morning. Branch Diclofenac 2021-0 Yes [id number] Apply to [facility] Sodium 7-05 area(s) 4 ity of (VOLTAREN) 00:00: (four) [place] 1 % gel 00 times Medical daily. Branch Apply 4 g qid glipiZIDE 2021-0 Yes [id number] 2.5mg Take 1 [facility] XL 2.5 mg 7-05 tablet by it[facility] o f 24 hr 00:00: mouth 2 [place] tablet 00 (two) Medical times Branch daily. Lidocaine 5 2021-0 Yes [id number] Apply to [facility] % cream 7-05 area(s) 2 [facility] of 00:00: (two) [place] 00 times Medical daily as Branch needed for Pain (scale 4-6). Apply 5g to affected areas BID PRN levothyroxi 2021-0 Yes [id number] 150ug Take 1 [facility] ne 150 mcg 7-05 tablet by [facility] of tablet 00:00: mouth [place] 00 every Medical morning. Branch Diclofenac 2021-0 Yes [id number] Apply to [facility] Sodium 7-05 area(s) 4 ity of (VOLTAREN) 00:00: (four) [place] 1 % gel 00 times Medical daily. Branch Apply 4 g qid glipiZIDE 2021-0 Yes [id number] 2.5mg Take 1 [facility] XL 2.5 mg 7-05 tablet by it[facility] o f 24 hr 00:00: mouth 2 [place] tablet 00 (two) Medical times Branch daily. Lidocaine 5 2021-0 Yes [id number] Apply to [facility] % cream 7-05 area(s) 2 [facility] of 00:00: (two) [place] 00 times Medical daily as Branch needed for Pain (scale 4-6). Apply 5g to affected areas BID PRN levothyroxi 2021-0 Yes [id number] 150ug Take 1 [facility] ne 150 mcg 7-05 tablet by [facility] of tablet 00:00: mouth [place] 00 every Medical morning. Branch Diclofenac 2021-0 Yes [id number] Apply to [facility] Sodium 7-05 area(s) 4 ity of (VOLTAREN) 00:00: (four) [place] 1 % gel 00 times Medical daily. Branch Apply 4 g qid glipiZIDE 2021-0 Yes [id number] 2.5mg Take 1 [facility] XL 2.5 mg 7-05 tablet by ity o f 24 hr 00:00: mouth 2 [place] tablet 00 (two) Medical times Branch daily. Lidocaine 5 2021-0 Yes [id number] Apply to [facility] % cream 7-05 area(s) 2 [facility] of 00:00: (two) [place] 00 times Medical daily as Branch needed for Pain (scale 4-6). Apply 5g to affected areas BID PRN levothyroxi 2021-0 Yes [id number] 150ug Take 1 [facility] ne 150 mcg 7-05 tablet by [facility] of tablet 00:00: mouth [place] 00 every Medical morning. Branch Diclofenac 2021-0 Yes [id number] Apply to [facility] Sodium 7-05 area(s) 4 ity of (VOLTAREN) 00:00: (four) [place] 1 % gel 00 times Medical daily. Branch Apply 4 g qid glipiZIDE 2021-0 Yes [id number] 2.5mg Take 1 [facility] XL 2.5 mg 7-05 tablet by ity o f 24 hr 00:00: mouth 2 [place] tablet 00 (two) Medical times Branch daily. Lidocaine 5 2021-0 Yes [id number] Apply to [facility] % cream 7-05 area(s) 2 [facility] of 00:00: (two) [place] 00 times Medical daily as Branch needed for Pain (scale 4-6). Apply 5g to affected areas BID PRN levothyroxi 2022-0 2023- No [id number] 150ug Take 1 [facility] ne 150 mcg 7-05 01-05 tablet by [facility] of tablet 00:00: 00:00 mouth [place] 00 :00 every Medical morning. Branch Diclofenac 2022- No [id number] Apply to [facility] Sodium 09-05 area(s) 4 ity of (VOLTAREN) 00:00: 00:00 (four) [place] 1 % gel 00 :00 times Medical daily. Branch Apply 4 g qid glipiZIDE 2022- No [id number] 2.5mg Take 1 [facility] XL 2.5 mg 09-05 tablet by [facility] of 24 hr 00:00: 00:00 mouth 2 [place] tablet 00 :00 (two) Medical times Branch daily. Lidocaine 5 2022- No [id number] Apply to [facility] % cream 09-05 area(s) 2 [facility] of 00:00: 00:00 (two) [place] 00 :00 times Medical daily as Branch needed for Pain (scale 4-6). Apply 5g to affected areas BID PRN levothyroxi 2022- No [id number] 150ug Take 1 [facility] ne 150 mcg 09-05 tablet by [facility] of tablet 00:00: 00:00 mouth [place] 00 :00 every Medical morning. Branch Diclofenac 2022- No [id number] Apply to [facility] Sodium 09-05 area(s) 4 ity of (VOLTAREN) 00:00: 00:00 (four) [place] 1 % gel 00 :00 times Medical daily. Branch Apply 4 g qid glipiZIDE 2022- No [id number] 2.5mg Take 1 [facility] XL 2.5 mg 09-05 tablet by [facility] of 24 hr 00:00: 00:00 mouth 2 [place] tablet 00 :00 (two) Medical times Branch daily. Lidocaine 5 2022- No [id number] Apply to [facility] % cream 09-05 area(s) 2 [facility] of 00:00: 00:00 (two) [place] 00 :00 times Medical daily as Branch needed for Pain (scale 4-6). Apply 5g to affected areas BID PRN levothyroxi 2022- No [id number] 150ug Take 1 [facility] ne 150 mcg 09-05 tablet by [facility] of tablet 00:00: 00:00 mouth [place] 00 :00 every Medical morning. Branch Diclofenac 2022- No [id number] Apply to [facility] Sodium 09-05 area(s) 4 [facility]y of (VOLTAREN) 00:00: 00:00 (four) [place] 1 % gel 00 :00 times Medical daily. Branch Apply 4 g qid glipiZIDE 2022- No [id number] 2.5mg Take 1 [facility] XL 2.5 mg 09-05 tablet by [facility]y of 24 hr 00:00: 00:00 mouth 2 [place] tablet 00 :00 (two) Medical times Branch daily. Lidocaine 5 2022- No [id number] Apply to [facility] % cream 09-05 area(s) 2 ity of 00:00: 00:00 (two) [place] 00 :00 times Medical daily as Branch needed for Pain (scale 4-6). Apply 5g to affected areas BID PRN levothyroxi 2022- No [id number] 150ug Take 1 [facility] ne 150 mcg 09-05 tablet by [facility] of tablet 00:00: 00:00 mouth [place] 00 :00 every Medical morning. Branch Diclofenac 2022- No [id number] Apply to [facility] Sodium 09-05 area(s) 4 ity of (VOLTAREN) 00:00: 00:00 (four) [place] 1 % gel 00 :00 times Medical daily. Branch Apply 4 g qid glipiZIDE 2022- No [id number] 2.5mg Take 1 [facility] XL 2.5 mg 09-05 tablet by [facility]y of 24 hr 00:00: 00:00 mouth 2 [place] tablet 00 :00 (two) Medical times Branch daily. Lidocaine 5 2022- No [id number] Apply to [facility] % cream 09-05 area(s) 2 ity of 00:00: 00:00 (two) [place] 00 :00 times Medical daily as Branch needed for Pain (scale 4-6). Apply 5g to affected areas BID PRN baclofen 10 2021- No [id number] 10mg Take 1 [facility] mg tablet 09-05 tablet by [facility] of 00:00: 00:00 mouth 3 [place] 00 :00 (three) Medical times Branch daily as needed for Pain (scale 7-10). docusate 2021-0 2- No [id number] 100mg Take 1 [facility] n[facility] 100 mg 7-05 10-05 capsule by [facility] of capsule 00:00: 00:00 mouth 2 [place] 00 :00 (two) Medical times Branch daily. docusate 2021-0 2022- No [id number] 100mg Take 1 [facility] 100 mg 7-05 10-05 capsule by [facility] of capsule 00:00: 00:00 mouth 2 [place] 00 :00 (two) Medical times Branch daily. docusate 2021-0 2- No [id number] 100mg Take 1 [facility] nivers 100 mg 7-05 10-05 capsule by [facility]y of capsule 00:00: 00:00 mouth 2 [place] 00 :00 (two) Medical times Branch daily. pravastatin 0 Yes [id number] 40mg Take 1 [facility] 40 mg 3-30 tablet by [facility] of tablet 00:00: mouth at [place] 00 bedtime. Medical Branch tamsulosin 0 Yes [id number] .4mg Take 1 [facility] 0.4 mg 24 3-30 9102 capsule by [facility] of hr capsule 00:00: mouth [place] 00 daily. Medical Branch ergocalcife 2021-0 Yes [id number] Take 1 [facility] rol, 3-30 capsule by [facility] of vitamin d2, 00:00: mouth [place] 1,250 mcg 00 weekly. Medical (50,000 Branch unit) capsule traZODone 2021-0 Yes [id number] 50mg Take 1 [facility] nivers 50 mg 3-30 tablet by [facility]y of tablet 00:00: mouth at [place] 00 bedtime. Medical Branch pravastatin 2021-0 Yes [id number] 40mg Take 1 [facility] 40 mg 3-30 tablet by [facility] of tablet 00:00: mouth at [place] 00 bedtime. Medical Branch tamsulosin 2021-0 Yes [id number] .4mg Take 1 [facility] 0.4 mg 24 3-30 9102 capsule by [facility]y of hr capsule 00:00: mouth [place] 00 daily. Medical Branch ergocalcife 2021-0 Yes [id number] Take 1 [facility] rol, 3-30 capsule by ity of vitamin d2, 00:00: mouth [place] 1,250 mcg 00 weekly. Medical (50,000 Branch unit) capsule traZODone 2021-0 Yes [id number] 50mg Take 1 [facility] nivers 50 mg 3-30 tablet by [facility]y of tablet 00:00: mouth at [place] 00 bedtime. Medical Branch pravastatin 2021-0 Yes [id number] 40mg Take 1 [facility] 40 mg 3-30 tablet by [facility] of tablet 00:00: mouth at [place] 00 bedtime. Medical Branch tamsulosin 2021-0 Yes [id number] .4mg Take 1 [facility] 0.4 mg 24 3-30 9102 capsule by ity of hr capsule 00:00: mouth [place] 00 daily. Medical Branch ergocalcife 2021-0 Yes [id number] Take 1 [facility] rol, 3-30 capsule by ity of vitamin d2, 00:00: mouth [place] 1,250 mcg 00 weekly. Medical (50,000 Branch unit) capsule traZODone 2021-0 Yes [id number] 50mg Take 1 [facility] nivers 50 mg 3-30 tablet by ity of tablet 00:00: mouth at [place] 00 bedtime. Medical Branch pravastatin 2021-0 Yes [id number] 40mg Take 1 [facility] 40 mg 3-30 tablet by [facility]y of tablet 00:00: mouth at [place] 00 bedtime. Medical Branch tamsulosin 2021-0 Yes [id number] .4mg Take 1 [facility] 0.4 mg 24 3-30 9102 capsule by ity of hr capsule 00:00: mouth [place] 00 daily. Medical Branch ergocalcife 2021-0 Yes [id number] Take 1 [facility] rol, 3-30 capsule by ity of vitamin d2, 00:00: mouth [place] 1,250 mcg 00 weekly. Medical (50,000 Branch unit) capsule traZODone 2021-0 Yes [id number] 50mg Take 1 [facility] nivers 50 mg 3-30 tablet by ity of tablet 00:00: mouth at [place] 00 bedtime. Medical Branch pravastatin 2021-0 Yes [id number] 40mg Take 1 [facility] 40 mg 3-30 tablet by [facility]y of tablet 00:00: mouth at [place] 00 bedtime. Medical Branch tamsulosin 2021-0 Yes [id number] .4mg Take 1 [facility] 0.4 mg 24 3-30 9102 capsule by ity of hr capsule 00:00: mouth [place] 00 daily. Medical Branch ergocalcife 2021-0 Yes [id number] Take 1 [facility] rol, 3-30 capsule by ity of vitamin d2, 00:00: mouth [place] 1,250 mcg 00 weekly. Medical (50,000 Branch unit) capsule traZODone 2021-0 Yes [id number] 50mg Take 1 [facility] nivers 50 mg 3-30 tablet by ity of tablet 00:00: mouth at [place] 00 bedtime. Medical Branch pravastatin 2021-0 Yes [id number] 40mg Take 1 [facility] 40 mg 3-30 tablet by ity of tablet 00:00: mouth at [place] 00 bedtime. Medical Branch tamsulosin 0 Yes [id number] .4mg Take 1 [facility] 0.4 mg 24 3-30 9102 capsule by ity of hr capsule 00:00: mouth [place] 00 daily. Medical Branch ergocalcife 2021-0 Yes [id number] Take 1 [facility] rol, 3-30 capsule by ity of vitamin d2, 00:00: mouth [place] 1,250 mcg 00 weekly. Medical (50,000 Branch unit) capsule traZODone 2021-0 Yes [id number] 50mg Take 1 [facility] nivers 50 mg 3-30 tablet by ity of tablet 00:00: mouth at [place] 00 bedtime. Medical Branch pravastatin 2021-0 Yes [id number] 40mg Take 1 [facility] 40 mg 3-30 tablet by ity of tablet 00:00: mouth at [place] 00 bedtime. Medical Branch tamsulosin 2021-0 Yes [id number] .4mg Take 1 [facility] 0.4 mg 24 3-30 9102 capsule by ity of hr capsule 00:00: mouth [place] 00 daily. Medical Branch ergocalcife 2021-0 Yes [id number] Take 1 [facility] rol, 3-30 capsule by ity of vitamin d2, 00:00: mouth [place] 1,250 mcg 00 weekly. Medical (50,000 Branch unit) capsule traZODone 2021-0 Yes [id number] 50mg Take 1 [facility] nivers 50 mg 3-30 tablet by ity of tablet 00:00: mouth at [place] 00 bedtime. Medical Branch pravastatin 2021-0 Yes [id number] 40mg Take 1 [facility] 40 mg 3-30 tablet by ity of tablet 00:00: mouth at [place] 00 bedtime. Medical Branch tamsulosin 2021-0 Yes [id number] .4mg Take 1 [facility] 0.4 mg 24 3-30 9102 capsule by ity of hr capsule 00:00: mouth [place] 00 daily. Medical Branch ergocalcife 2021-0 Yes [id number] Take 1 [facility] rol, 3-30 capsule by ity of vitamin d2, 00:00: mouth [place] 1,250 mcg 00 weekly. Medical (50,000 Branch unit) capsule traZODone 2021-0 Yes [id number] 50mg Take 1 [facility] nivers 50 mg 3-30 tablet by ity of tablet 00:00: mouth at [place] 00 bedtime. Medical Branch pravastatin 2021-0 Yes [id number] 40mg Take 1 [facility] 40 mg 3-30 tablet by ity of tablet 00:00: mouth at [place] 00 bedtime. Medical Branch tamsulosin 0 Yes [id number] .4mg Take 1 [facility] 0.4 mg 24 3-30 9102 capsule by ity of hr capsule 00:00: mouth [place] 00 daily. Medical Branch ergocalcife 2021-0 Yes [id number] Take 1 [facility] rol, 3-30 capsule by ity of vitamin d2, 00:00: mouth [place] 1,250 mcg 00 weekly. Medical (50,000 Branch unit) capsule traZODone 2021-0 Yes [id number] 50mg Take 1 [facility] nivers 50 mg 3-30 tablet by ity of tablet 00:00: mouth at [place] 00 bedtime. Medical Branch pravastatin 2021-0 Yes [id number] 40mg Take 1 [facility] 40 mg 3-30 tablet by ity of tablet 00:00: mouth at [place] 00 bedtime. Medical Branch tamsulosin 2021-0 Yes [id number] .4mg Take 1 [facility] 0.4 mg 24 3-30 9102 capsule by ity of hr capsule 00:00: mouth [place] 00 daily. Medical Branch ergocalcife 2021-0 Yes [id number] Take 1 [facility] rol, 3-30 capsule by ity of vitamin d2, 00:00: mouth [place] 1,250 mcg 00 weekly. Medical (50,000 Branch unit) capsule traZODone 2021-0 Yes [id number] 50mg Take 1 [facility] nivers 50 mg 3-30 tablet by ity of tablet 00:00: mouth at [place] 00 bedtime. Medical Branch pravastatin 2021-0 Yes [id number] 40mg Take 1 [facility] 40 mg 3-30 tablet by ity of tablet 00:00: mouth at [place] 00 bedtime. Medical Branch tamsulosin 2021-0 Yes [id number] .4mg Take 1 [facility] 0.4 mg 24 3-30 9102 capsule by ity of hr capsule 00:00: mouth [place] 00 daily. Medical Branch ergocalcife 2021-0 Yes [id number] Take 1 [facility] rol, 3-30 capsule by ity of vitamin d2, 00:00: mouth [place] 1,250 mcg 00 weekly. Medical (50,000 Branch unit) capsule traZODone 2021-0 Yes [id number] 50mg Take 1 [facility] nivers 50 mg 3-30 tablet by ity of tablet 00:00: mouth at [place] 00 bedtime. Medical Branch pravastatin 2021-0 Yes [id number] 40mg Take 1 [facility] 40 mg 3-30 tablet by ity of tablet 00:00: mouth at [place] 00 bedtime. Medical Branch tamsulosin 2021-0 Yes [id number] .4mg Take 1 [facility] 0.4 mg 24 3-30 9102 capsule by ity of hr capsule 00:00: mouth [place] 00 daily. Medical Branch ergocalcife 2021-0 Yes [id number] Take 1 [facility] rol, 3-30 capsule by ity of vitamin d2, 00:00: mouth [place] 1,250 mcg 00 weekly. Medical (50,000 Branch unit) capsule traZODone 2021-0 Yes [id number] 50mg Take 1 [facility] nivers 50 mg 3-30 tablet by ity of tablet 00:00: mouth at [place] 00 bedtime. Medical Branch pravastatin 2021-0 Yes [id number] 40mg Take 1 [facility] 40 mg 3-30 tablet by ity of tablet 00:00: mouth at [place] 00 bedtime. Medical Branch tamsulosin 2021-0 Yes [id number] .4mg Take 1 [facility] 0.4 mg 24 3-30 9102 capsule by ity of hr capsule 00:00: mouth [place] 00 daily. Medical Branch ergocalcife 2021-0 Yes [id number] Take 1 [facility] rol, 3-30 capsule by ity of vitamin d2, 00:00: mouth [place] 1,250 mcg 00 weekly. Medical (50,000 Branch unit) capsule traZODone 2021-0 Yes [id number] 50mg Take 1 [facility] nivers 50 mg 3-30 tablet by ity of tablet 00:00: mouth at [place] 00 bedtime. Medical Branch pravastatin 0 Yes [id number] 40mg Take 1 [facility] 40 mg 3-30 tablet by ity of tablet 00:00: mouth at [place] 00 bedtime. Medical Branch tamsulosin 0 Yes [id number] .4mg Take 1 [facility] 0.4 mg 24 3-30 9102 capsule by ity of hr capsule 00:00: mouth [place] 00 daily. Medical Branch ergocalcife 0 Yes [id number] Take 1 [facility] rol, 3-30 capsule by ity of vitamin d2, 00:00: mouth [place] 1,250 mcg 00 weekly. Medical (50,000 Branch unit) capsule traZODone 0 Yes [id number] 50mg Take 1 [facility] nivers 50 mg 3-30 tablet by ity of tablet 00:00: mouth at [place] 00 bedtime. Medical Branch pravastatin 0 Yes [id number] 40mg Take 1 [facility] 40 mg 3-30 tablet by ity of tablet 00:00: mouth at [place] 00 bedtime. Medical Branch tamsulosin 0 Yes [id number] .4mg Take 1 [facility] 0.4 mg 24 3-30 9102 capsule by ity of hr capsule 00:00: mouth [place] 00 daily. Medical Branch ergocalcife 2021-0 Yes [id number] Take 1 [facility] rol, 3-30 capsule by ity of vitamin d2, 00:00: mouth [place] 1,250 mcg 00 weekly. Medical (50,000 Branch unit) capsule traZODone 2021-0 Yes [id number] 50mg Take 1 [facility] nivers 50 mg 3-30 tablet by ity of tablet 00:00: mouth at [place] 00 bedtime. Medical Branch pravastatin 0 Yes [id number] 40mg Take 1 [facility] 40 mg 3-30 tablet by ity of tablet 00:00: mouth at [place] 00 bedtime. Medical Branch tamsulosin 2021-0 Yes [id number] .4mg Take 1 [facility] 0.4 mg 24 3-30 9102 capsule by ity of hr capsule 00:00: mouth [place] 00 daily. Medical Branch ergocalcife 2021-0 Yes [id number] Take 1 [facility] rol, 3-30 capsule by ity of vitamin d2, 00:00: mouth [place] 1,250 mcg 00 weekly. Medical (50,000 Branch unit) capsule traZODone 2021-0 Yes [id number] 50mg Take 1 [facility] nivers 50 mg 3-30 tablet by ity of tablet 00:00: mouth at [place] 00 bedtime. Medical Branch pravastatin 2021-0 Yes [id number] 40mg Take 1 [facility] 40 mg 3-30 tablet by ity of tablet 00:00: mouth at [place] 00 bedtime. Medical Branch tamsulosin 0 Yes [id number] .4mg Take 1 [facility] 0.4 mg 24 3-30 9102 capsule by ity of hr capsule 00:00: mouth [place] 00 daily. Medical Branch ergocalcife 0 Yes [id number] Take 1 [facility] rol, 3-30 capsule by ity of vitamin d2, 00:00: mouth [place] 1,250 mcg 00 weekly. Medical (50,000 Branch unit) capsule traZODone 2021-0 Yes [id number] 50mg Take 1 [facility] nivers 50 mg 3-30 tablet by ity of tablet 00:00: mouth at [place] 00 bedtime. Medical Branch pravastatin 2021-0 Yes [id number] 40mg Take 1 [facility] 40 mg 3-30 tablet by ity of tablet 00:00: mouth at [place] 00 bedtime. Medical Branch tamsulosin 2021-0 Yes [id number] .4mg Take 1 [facility] 0.4 mg 24 3-30 9102 capsule by ity of hr capsule 00:00: mouth [place] 00 daily. Medical Branch ergocalcife 0 Yes [id number] Take 1 [facility] rol, 3-30 capsule by ity of vitamin d2, 00:00: mouth [place] 1,250 mcg 00 weekly. Medical (50,000 Branch unit) capsule traZODone 2021-0 Yes [id number] 50mg Take 1 [facility] nivers 50 mg 3-30 tablet by ity of tablet 00:00: mouth at [place] 00 bedtime. Medical Branch pravastatin 2021-0 Yes [id number] 40mg Take 1 [facility] 40 mg 3-30 tablet by ity of tablet 00:00: mouth at [place] 00 bedtime. Medical Branch tamsulosin 0 Yes [id number] .4mg Take 1 [facility] 0.4 mg 24 3-30 9102 capsule by ity of hr capsule 00:00: mouth [place] 00 daily. Medical Branch ergocalcife 0 Yes [id number] Take 1 [facility] rol, 3-30 capsule by ity of vitamin d2, 00:00: mouth [place] 1,250 mcg 00 weekly. Medical (50,000 Branch unit) capsule traZODone 2021-0 Yes [id number] 50mg Take 1 [facility] nivers 50 mg 3-30 tablet by ity of tablet 00:00: mouth at [place] 00 bedtime. Medical Branch pravastatin 0 Yes [id number] 40mg Take 1 [facility] 40 mg 3-30 tablet by ity of tablet 00:00: mouth at [place] 00 bedtime. Medical Branch tamsulosin Yes [id number] .4mg Take 1 [facility] 0.4 mg 24 3-30 9102 capsule by ity of hr capsule 00:00: mouth [place] 00 daily. Medical Branch ergocalcife 0 Yes [id number] Take 1 [facility] rol, 3-30 capsule by ity of vitamin d2, 00:00: mouth [place] 1,250 mcg 00 weekly. Medical (50,000 Branch unit) capsule traZODone 0 Yes [id number] 50mg Take 1 [facility] nivers 50 mg 3-30 tablet by ity of tablet 00:00: mouth at [place] 00 bedtime. Medical Branch pravastatin 0 Yes [id number] 40mg Take 1 [facility] 40 mg 3-30 tablet by ity of tablet 00:00: mouth at [place] 00 bedtime. Medical Branch tamsulosin 0 Yes [id number] .4mg Take 1 [facility] 0.4 mg 24 3-30 9102 capsule by ity of hr capsule 00:00: mouth [place] 00 daily. Medical Branch ergocalcife 0 Yes [id number] Take 1 [facility] rol, 3-30 capsule by ity of vitamin d2, 00:00: mouth [place] 1,250 mcg 00 weekly. Medical (50,000 Branch unit) capsule traZODone 2021-0 Yes [id number] 50mg Take 1 [facility] nivers 50 mg 3-30 tablet by ity of tablet 00:00: mouth at [place] 00 bedtime. Medical Branch pravastatin 2021-0 Yes [id number] 40mg Take 1 [facility] 40 mg 3-30 tablet by ity of tablet 00:00: mouth at [place] 00 bedtime. Medical Branch tamsulosin 0 Yes [id number] .4mg Take 1 [facility] 0.4 mg 24 3-30 9102 capsule by ity of hr capsule 00:00: mouth [place] 00 daily. Medical Branch ergocalcife 0 Yes [id number] Take 1 [facility] rol, 3-30 capsule by ity of vitamin d2, 00:00: mouth [place] 1,250 mcg 00 weekly. Medical (50,000 Branch unit) capsule traZODone Yes [id number] 50mg Take 1 [facility] nivers 50 mg 3-30 tablet by ity of tablet 00:00: mouth at [place] 00 bedtime. Medical Branch pravastatin 0 Yes [id number] 40mg Take 1 [facility] 40 mg 3-30 tablet by ity of tablet 00:00: mouth at [place] 00 bedtime. Medical Branch tamsulosin Yes [id number] .4mg Take 1 [facility] 0.4 mg 24 3-30 9102 capsule by ity of hr capsule 00:00: mouth [place] 00 daily. Medical Branch ergocalcife 0 Yes [id number] Take 1 [facility] rol, 3-30 capsule by ity of vitamin d2, 00:00: mouth [place] 1,250 mcg 00 weekly. Medical (50,000 Branch unit) capsule traZODone 2021-0 Yes [id number] 50mg Take 1 [facility] nivers 50 mg 3-30 tablet by ity of tablet 00:00: mouth at [place] 00 bedtime. Medical Branch pravastatin 0 Yes [id number] 40mg Take 1 [facility] 40 mg 3-30 tablet by ity of tablet 00:00: mouth at [place] 00 bedtime. Medical Branch tamsulosin 0 Yes [id number] .4mg Take 1 [facility] 0.4 mg 24 3-30 9102 capsule by ity of hr capsule 00:00: mouth [place] 00 daily. Medical Branch ergocalcife 0 Yes [id number] Take 1 [facility] rol, 3-30 capsule by ity of vitamin d2, 00:00: mouth [place] 1,250 mcg 00 weekly. Medical (50,000 Branch unit) capsule traZODone 2021-0 Yes [id number] 50mg Take 1 [facility] nivers 50 mg 3-30 tablet by ity of tablet 00:00: mouth at [place] 00 bedtime. Medical Branch pravastatin 2021-0 Yes [id number] 40mg Take 1 [facility] 40 mg 3-30 tablet by ity of tablet 00:00: mouth at [place] 00 bedtime. Medical Branch tamsulosin 0 Yes [id number] .4mg Take 1 [facility] 0.4 mg 24 3-30 9102 capsule by ity of hr capsule 00:00: mouth [place] 00 daily. Medical Branch ergocalcife 0 Yes [id number] Take 1 [facility] rol, 3-30 capsule by ity of vitamin d2, 00:00: mouth [place] 1,250 mcg 00 weekly. Medical (50,000 Branch unit) capsule traZODone 2021-0 Yes [id number] 50mg Take 1 [facility] nivers 50 mg 3-30 tablet by ity of tablet 00:00: mouth at [place] 00 bedtime. Medical Branch pravastatin 0 Yes [id number] 40mg Take 1 [facility] 40 mg 3-30 tablet by ity of tablet 00:00: mouth at [place] 00 bedtime. Medical Branch tamsulosin 0 Yes [id number] .4mg Take 1 [facility] 0.4 mg 24 3-30 9102 capsule by ity of hr capsule 00:00: mouth [place] 00 daily. Medical Branch ergocalcife 0 Yes [id number] Take 1 [facility] rol, 3-30 capsule by ity of vitamin d2, 00:00: mouth [place] 1,250 mcg 00 weekly. Medical (50,000 Branch unit) capsule traZODone 2021-0 Yes [id number] 50mg Take 1 [facility] nivers 50 mg 3-30 tablet by [facility]y of tablet 00:00: mouth at [place] 00 bedtime. Medical Branch pravastatin 2021-0 Yes [id number] 40mg Take 1 [facility] 40 mg 3-30 tablet by [facility]y of tablet 00:00: mouth at [place] 00 bedtime. Medical Branch tamsulosin 2021-0 Yes [id number] .4mg Take 1 [facility] 0.4 mg 24 3-30 9102 capsule by [facility]y of hr capsule 00:00: mouth [place] 00 daily. Medical Branch ergocalcife 0 Yes [id number] Take 1 [facility] rol, 3-30 capsule by ity of vitamin d2, 00:00: mouth [place] 1,250 mcg 00 weekly. Medical (50,000 Branch unit) capsule traZODone 0 Yes [id number] 50mg Take 1 [facility] 50 mg 3-30 tablet by [facility]y of tablet 00:00: mouth at [place] 00 bedtime. Medical Branch pravastatin 0 Yes [id number] 40mg Take 1 [facility] 40 mg 3-30 tablet by [facility]y of tablet 00:00: mouth at [place] 00 bedtime. Medical Branch tamsulosin Yes [id number] .4mg Take 1 [facility] 0.4 mg 24 3-30 9102 capsule by ity of hr capsule 00:00: mouth [place] 00 daily. Medical Branch ergocalcife 0 Yes [id number] Take 1 [facility] rol, 3-30 capsule by ity of vitamin d2, 00:00: mouth [place] 1,250 mcg 00 weekly. Medical (50,000 Branch unit) capsule traZODone 0 Yes [id number] 50mg Take 1 [facility] 50 mg 3-30 tablet by [facility] tablet 00:00: mouth at [place] 00 bedtime. [facility] pravastatin 0 Yes [id number] 40mg Take 1 [facility] 40 mg 3-30 tablet by [facility] tablet 00:00: mouth at [place] 00 bedtime. [facility] tamsulosin 0 Yes [id number] .4mg Take 1 [facility] 0.4 mg 24 3-30 9102 capsule by [facility] of hr capsule 00:00: mouth [place] 00 daily. [facility] ergocalcife 0 Yes [id number] Take 1 [facility] rol, 3-30 capsule by [facility] of vitamin d2, 00:00: mouth [place] 1,250 mcg 00 weekly. [facility] (50,000 Branch unit) capsule traZODone 2021-0 Yes [id number] 50mg Take 1 [facility] 50 mg 3-30 tablet by [facility] tablet 00:00: mouth at [place] 00 bedtime. [facility] pravastatin 2021-0 Yes [id number] 40mg Take 1 [facility] 40 mg 3-30 tablet by [facility] tablet 00:00: mouth at [place] 00 bedtime. [facility] tamsulosin 2021-0 Yes [id number] .4mg Take 1 [facility] 0.4 mg 24 3-30 9102 capsule by [facility] of hr capsule 00:00: mouth [place] 00 daily. [facility] ergocalcife 2021-0 Yes [id number] Take 1 [facility] rol, 3-30 capsule by [facility] of vitamin d2, 00:00: mouth [place] 1,250 mcg 00 weekly. [facility] (50,000 Branch unit) capsule traZODone 2021-0 Yes [id number] 50mg Take 1 [facility] 50 mg 3-30 tablet by [facility] tablet 00:00: mouth at [place] 00 bedtime. [facility] pravastatin 0 Yes [id number] 40mg Take 1 [facility] 40 mg 3-30 tablet by [facility] tablet 00:00: mouth at [place] 00 bedtime. [facility] tamsulosin 0 Yes [id number] .4mg Take 1 [facility] 0.4 mg 24 3-30 9102 capsule by [facility] of hr capsule 00:00: mouth [place] 00 daily. [facility] ergocalcife 0 Yes [id number] Take 1 [facility] rol, 3-30 capsule by [facility] of vitamin d2, 00:00: mouth [place] 1,250 mcg 00 weekly. [facility] (50,000 Branch unit) capsule traZODone 2021-0 Yes [id number] 50mg Take 1 [facility] 50 mg 3-30 tablet by [facility] tablet 00:00: mouth at [place] 00 bedtime. [facility] pravastatin 2021-0 Yes [id number] 40mg Take 1 [facility] 40 mg 3-30 tablet by [facility] tablet 00:00: mouth at [place] 00 bedtime. [facility] tamsulosin 2021-0 Yes [id number] .4mg Take 1 [facility] 0.4 mg 24 3-30 9102 capsule by [facility] hr capsule 00:00: mouth [place] 00 daily. [facility] ergocalcife 2021-0 Yes [id number] Take 1 [facility] rol, 3-30 capsule by [facility] of vitamin d2, 00:00: mouth [place] 1,250 mcg 00 weekly. [facility] (50,000 Branch unit) capsule traZODone 0 Yes [id number] 50mg Take 1 [facility] 50 mg 3-30 tablet by [facility] tablet 00:00: mouth at [place] 00 bedtime. [facility] tamsulosin 0 Yes [id number] .4mg Take 1 [facility] 0.4 mg 24 3-30 9102 capsule by [facility] of hr capsule 00:00: mouth [place] 00 daily. [facility] ergocalcife 0 Yes [id number] Take 1 [facility] rol, 3-30 capsule by [facility] of vitamin d2, 00:00: mouth [place] 1,250 mcg 00 weekly. [facility] (50,000 Branch unit) capsule traZODone 0 Yes [id number] 50mg Take 1 [facility] 50 mg 3-30 tablet by [facility] of tablet 00:00: mouth at [place] 00 bedtime. [facility] tamsulosin Yes [id number] .4mg Take 1 [facility] 0.4 mg 24 3-30 9102 capsule by [facility] of hr capsule 00:00: mouth [place] 00 daily. [facility] ergocalcife 0 Yes [id number] Take 1 [facility] rol, 3-30 capsule by [facility] of vitamin d2, 00:00: mouth [place] 1,250 mcg 00 weekly. [facility] (50,000 Branch unit) capsule traZODone 0 Yes [id number] 50mg Take 1 [facility] 50 mg 3-30 tablet by [facility] of tablet 00:00: mouth at [place] 00 bedtime. [facility] tamsulosin Yes [id number] .4mg Take 1 [facility] 0.4 mg 24 3-30 9102 capsule by [facility] of hr capsule 00:00: mouth [place] 00 daily. [facility] ergocalcife 0 Yes [id number] Take 1 [facility] rol, 3-30 capsule by [facility] of vitamin d2, 00:00: mouth [place] 1,250 mcg 00 weekly. [facility] (50,000 Branch unit) capsule traZODone 0 Yes [id number] 50mg Take 1 [facility] 50 mg 3-30 tablet by [facility] of tablet 00:00: mouth at [place] 00 bedtime. [facility] tamsulosin 0 Yes [id number] .4mg Take 1 [facility] 0.4 mg 24 3-30 9102 capsule by [facility] of hr capsule 00:00: mouth [place] 00 daily. [facility] ergocalcife 2021-0 Yes [id number] Take 1 [facility] rol, 3-30 capsule by [facility] of vitamin d2, 00:00: mouth [place] 1,250 mcg 00 weekly. [facility] (50,000 Branch unit) capsule traZODone 2021-0 Yes [id number] 50mg Take 1 [facility] 50 mg 3-30 tablet by [facility] of tablet 00:00: mouth at [place] 00 bedtime. [facility] tamsulosin 2021-0 Yes [id number] .4mg Take 1 [facility] 0.4 mg 24 3-30 9102 capsule by [facility] of hr capsule 00:00: mouth [place] 00 daily. [facility] ergocalcife 0 Yes [id number] Take 1 [facility] rol, 3-30 capsule by [facility] of vitamin d2, 00:00: mouth [place] 1,250 mcg 00 weekly. [facility] (50,000 Branch unit) capsule traZODone 2021-0 Yes [id number] 50mg Take 1 [facility] 50 mg 3-30 tablet by [facility] of tablet 00:00: mouth at [place] 00 bedtime. [facility] tamsulosin 0 Yes [id number] .4mg Take 1 [facility] 0.4 mg 24 3-30 9102 capsule by [facility] of hr capsule 00:00: mouth [place] 00 daily. [facility] ergocalcife 2021-0 Yes [id number] Take 1 [facility] rol, 3-30 capsule by [facility]y of vitamin d2, 00:00: mouth [place] 1,250 mcg 00 weekly. Medical (50,000 Branch unit) capsule traZODone 2021-0 Yes [id number] 50mg Take 1 [facility] 50 mg 3-30 tablet by [facility] of tablet 00:00: mouth at [place] 00 bedtime. [facility] tamsulosin 2021-0 Yes [id number] .4mg Take 1 [facility] 0.4 mg 24 3-30 9102 capsule by [facility] of hr capsule 00:00: mouth [place] 00 daily. [facility] ergocalcife 2021-0 Yes [id number] Take 1 [facility] rol, 3-30 capsule by [facility] of vitamin d2, 00:00: mouth [place] 1,250 mcg 00 weekly. [facility] (50,000 Branch unit) capsule traZODone 2021-0 Yes [id number] 50mg Take 1 [facility] 50 mg 3-30 tablet by [facility] of tablet 00:00: mouth at [place] 00 bedtime. [facility] tamsulosin 0 Yes [id number] .4mg Take 1 [facility] 0.4 mg 24 3-30 9102 capsule by [facility] of hr capsule 00:00: mouth [place] 00 daily. [facility] ergocalcife 0 Yes [id number] Take 1 [facility] rol, 3-30 capsule by [facility] of vitamin d2, 00:00: mouth [place] 1,250 mcg 00 weekly. Medical (50,000 Branch unit) capsule traZODone 0 Yes [id number] 50mg Take 1 [facility] 50 mg 3-30 tablet by [facility] of tablet 00:00: mouth at [place] 00 bedtime. [facility] tamsulosin 0 Yes [id number] .4mg Take 1 [facility] 0.4 mg 24 3-30 9102 capsule by [facility] of hr capsule 00:00: mouth [place] 00 daily. [facility] ergocalcife 0 Yes [id number] Take 1 [facility] rol, 3-30 capsule by [facility]y of vitamin d2, 00:00: mouth [place] 1,250 mcg 00 weekly. [facility] (50,000 Branch unit) capsule traZODone 0 Yes [id number] 50mg Take 1 [facility] 50 mg 3-30 tablet by [facility] of tablet 00:00: mouth at [place] 00 bedtime. [facility] tamsulosin 0 Yes [id number] .4mg Take 1 [facility] 0.4 mg 24 3-30 9102 capsule by [facility]y of hr capsule 00:00: mouth [place] 00 daily. [facility] ergocalcife 0 Yes [id number] Take 1 [facility] rol, 3-30 capsule by ity of vitamin d2, 00:00: mouth [place] 1,250 mcg 00 weekly. Medical (50,000 Branch unit) capsule traZODone 2021-0 Yes [id number] 50mg Take 1 [facility] 50 mg 3-30 tablet by [facility] of tablet 00:00: mouth at [place] 00 bedtime. [facility] tamsulosin 0 Yes [id number] .4mg Take 1 [facility] 0.4 mg 24 3-30 9102 capsule by [facility] of hr capsule 00:00: mouth [place] 00 daily. [facility] traZODone 2021-0 Yes [id number] 50mg Take 1 [facility] 50 mg 3-30 tablet by [facility] of tablet 00:00: mouth at [place] 00 bedtime. [facility] tamsulosin 0 Yes [id number] .4mg Take 1 [facility] 0.4 mg 24 3-30 9102 capsule by [facility] of hr capsule 00:00: mouth [place] 00 daily. [facility] traZODone 2021-0 Yes [id number] 50mg Take 1 [facility] 50 mg 3-30 tablet by [facility] of tablet 00:00: mouth at [place] 00 bedtime. [facility] tamsulosin 0 Yes [id number] .4mg Take 1 [facility] 0.4 mg 24 3-30 9102 capsule by [facility] of hr capsule 00:00: mouth 00 daily. [facility] traZODone 0 Yes [id number] 50mg Take 1 [facility] 50 mg 3-30 tablet by [facility] of tablet 00:00: mouth at [place] 00 bedtime. [facility] tamsulosin 0 Yes [id number] .4mg Take 1 [facility] 0.4 mg 24 3-30 9102 capsule by [facility] of hr capsule 00:00: mouth 00 daily. [facility] traZODone 0 Yes [id number] 50mg Take 1 [facility] 50 mg 3-30 tablet by [facility] of tablet 00:00: mouth at [place] 00 bedtime. [facility] tamsulosin 0 Yes [id number] .4mg Take 1 [facility] 0.4 mg 24 3-30 9102 capsule by [facility] of hr capsule 00:00: mouth [place] 00 daily. [facility] traZODone 0 Yes [id number] 50mg Take 1 [facility] 50 mg 3-30 tablet by [facility] of tablet 00:00: mouth at [place] 00 bedtime. [facility] tamsulosin 0 2022- No [id number] .4mg Take 1 [facility] 0.4 mg 24 3-30 01-05 9102 capsule by [facility] of hr capsule 00:00: 00:00 mouth [place] 00 :00 daily. [facility] traZODone 2021-0 2022- No [id number] 50mg Take 1 [facility] 50 mg 3-30 -05 tablet by [facility] of tablet 00:00: 00:00 mouth at [place] 00 :00 bedtime. [facility] tamsulosin 2022- No [id number] .4mg Take 1 [facility] 0.4 mg 24 3-30 -05 9102 capsule by [facility] of hr capsule 00:00: 00:00 mouth [place] 00 :00 daily. [facility] traZODone 2022- No [id number] 50mg Take 1 [facility] 50 mg 3-30 -05 tablet by [facility] of tablet 00:00: 00:00 mouth at [place] 00 :00 bedtime. [facility] tamsulosin 2022- No [id number] .4mg Take 1 [facility] 0.4 mg 24 3-30 - 9102 capsule by ity of hr capsule 00:00: 00:00 mouth [place] 00 :00 daily. [facility] traZODone 2022- No [id number] 50mg Take 1 [facility] 50 mg 3-30 -05 tablet by it[facility] of tablet 00:00: 00:00 mouth at [place] 00 :00 bedtime. [facility] tamsulosin 2022- No [id number] .4mg Take 1 [facility] 0.4 mg 24 -02 04- 9102 capsule by ity of hr capsule 00:00: 00:00 mouth [place] 00 :00 daily. [facility] traZODone 2022- No [id number] 50mg Take 1 [facility] 50 mg 3-30 -05 tablet by [facility] of tablet 00:00: 00:00 mouth at [place] 00 :00 bedtime. [facility] ergocalcife 2021- No [id number] Take 1 [facility] rol, 3-30 12-12 capsule by ity of vitamin d2, 00:00: 00:00 mouth [place] 1,250 mcg 00 :00 weekly. [facility] (50,000 Branch unit) capsule pravastatin 2021- No [id number] 40mg Take 1 [facility] 40 mg 3-30 11-11 tablet by ity of tablet 00:00: 00:00 mouth at [place] 00 :00 bedtime. [facility] triamcinolo Yes [id number] 1{spray Use 1 [facility] ne 55 mcg 3-15 } [place] in ity of nasal 00:00: each [place] inhaler 00 nostril 2 Medical (two) Branch times daily. ipratropium 2021-0 Yes [id number] 1{spray Use 1 [facility] 42 mcg 3-15 1 } [place] in ity of (0.06 %) 00:00: each [place] nasal spray 00 nostril 2 Med ical (two) Branch times daily. triamcinolo 2021-0 Yes [id number] 1{spray Use 1 [facility] ne 55 mcg 3-15 } [place] in ity of nasal 00:00: each [place] inhaler 00 nostril 2 Medical (two) Branch times daily. ipratropium 2021-0 Yes [id number] 1{spray Use 1 [facility] 42 mcg 3-15 1 } [place] in ity of (0.06 %) 00:00: each [place] nasal spray 00 nostril 2 Med ical (two) Branch times daily. triamcinolo 2021-0 Yes [id number] 1{spray Use 1 [facility] ne 55 mcg 3-15 } [place] in ity of nasal 00:00: each [place] inhaler 00 nostril 2 Medical (two) Branch times daily. ipratropium 2021-0 Yes [id number] 1{spray Use 1 [facility] 42 mcg 3-15 1 } [place] in ity of (0.06 %) 00:00: each [place] nasal spray 00 nostril 2 Med ical (two) Branch times daily. triamcinolo 2021-0 Yes [id number] 1{spray Use 1 [facility] ne 55 mcg 3-15 } [place] in ity of nasal 00:00: each [place] inhaler 00 nostril 2 Medical (two) Branch times daily. ipratropium 2021-0 Yes [id number] 1{spray Use 1 [facility] 42 mcg 3-15 1 } [place] in ity of (0.06 %) 00:00: each [place] nasal spray 00 nostril 2 Med ical (two) Branch times daily. triamcinolo 2021-0 Yes [id number] 1{spray Use 1 [facility] ne 55 mcg 3-15 } [place] in ity of nasal 00:00: each [place] inhaler 00 nostril 2 Medical (two) Branch times daily. ipratropium 2021-0 Yes [id number] 1{spray Use 1 [facility] 42 mcg 3-15 1 } [place] in ity of (0.06 %) 00:00: each [place] nasal spray 00 nostril 2 Med ical (two) Branch times daily. triamcinolo 2021-0 Yes [id number] 1{spray Use 1 [facility] ne 55 mcg 3-15 } [place] in ity of nasal 00:00: each [place] inhaler 00 nostril 2 Medical (two) Branch times daily. ipratropium 2021-0 Yes [id number] 1{spray Use 1 [facility] 42 mcg 3-15 1 } [place] in ity of (0.06 %) 00:00: each [place] nasal spray 00 nostril 2 Med ical (two) Branch times daily. triamcinolo 2021-0 Yes [id number] 1{spray Use 1 [facility] ne 55 mcg 3-15 } [place] in ity of nasal 00:00: each [place] inhaler 00 nostril 2 Medical (two) Branch times daily. ipratropium 2021-0 Yes [id number] 1{spray Use 1 [facility] 42 mcg 3-15 1 } [place] in ity of (0.06 %) 00:00: each [place] nasal spray 00 nostril 2 Med ical (two) Branch times daily. triamcinolo 2021-0 Yes [id number] 1{spray Use 1 [facility] ne 55 mcg 3-15 } [place] in ity of nasal 00:00: each [place] inhaler 00 nostril 2 Medical (two) Branch times daily. ipratropium 2021-0 Yes [id number] 1{spray Use 1 [facility] 42 mcg 3-15 1 } [place] in ity of (0.06 %) 00:00: each [place] nasal spray 00 nostril 2 Med ical (two) Branch times daily. triamcinolo 2021-0 Yes [id number] 1{spray Use 1 [facility] ne 55 mcg 3-15 } [place] in ity of nasal 00:00: each [place] inhaler 00 nostril 2 Medical (two) Branch times daily. ipratropium 2021-0 Yes [id number] 1{spray Use 1 [facility] 42 mcg 3-15 1 } [place] in ity of (0.06 %) 00:00: each [place] nasal spray 00 nostril 2 Med ical (two) Branch times daily. triamcinolo 2021-0 Yes [id number] 1{spray Use 1 [facility] ne 55 mcg 3-15 } [place] in ity of nasal 00:00: each [place] inhaler 00 nostril 2 Medical (two) Branch times daily. ipratropium 2021-0 Yes [id number] 1{spray Use 1 [facility] 42 mcg 3-15 1 } [place] in ity of (0.06 %) 00:00: each [place] nasal spray 00 nostril 2 Med ical (two) Branch times daily. triamcinolo 2021-0 Yes [id number] 1{spray Use 1 [facility] ne 55 mcg 3-15 } [place] in ity of nasal 00:00: each [place] inhaler 00 nostril 2 Medical (two) Branch times daily. ipratropium 2021-0 Yes [id number] 1{spray Use 1 [facility] 42 mcg 3-15 1 } [place] in ity of (0.06 %) 00:00: each [place] nasal spray 00 nostril 2 Med ical (two) Branch times daily. triamcinolo 2021-0 Yes [id number] 1{spray Use 1 [facility] ne 55 mcg 3-15 } [place] in ity of nasal 00:00: each [place] inhaler 00 nostril 2 Medical (two) Branch times daily. ipratropium 2021-0 Yes [id number] 1{spray Use 1 [facility] 42 mcg 3-15 1 } [place] in ity of (0.06 %) 00:00: each [place] nasal spray 00 nostril 2 Med ical (two) Branch times daily. triamcinolo 2021-0 Yes [id number] 1{spray Use 1 [facility] ne 55 mcg 3-15 } [place] in ity of nasal 00:00: each [place] inhaler 00 nostril 2 Medical (two) Branch times daily. ipratropium 2021-0 Yes [id number] 1{spray Use 1 [facility] 42 mcg 3-15 1 } [place] in ity of (0.06 %) 00:00: each [place] nasal spray 00 nostril 2 Med ical (two) Branch times daily. triamcinolo 2021-0 Yes [id number] 1{spray Use 1 [facility] ne 55 mcg 3-15 } [place] in ity of nasal 00:00: each [place] inhaler 00 nostril 2 Medical (two) Branch times daily. ipratropium 2021-0 Yes [id number] 1{spray Use 1 [facility] 42 mcg 3-15 1 } [place] in ity of (0.06 %) 00:00: each [place] nasal spray 00 nostril 2 Med ical (two) Branch times daily. triamcinolo 2021-0 Yes [id number] 1{spray Use 1 [facility] ne 55 mcg 3-15 } [place] in ity of nasal 00:00: each [place] inhaler 00 nostril 2 Medical (two) Branch times daily. ipratropium 2021-0 Yes [id number] 1{spray Use 1 [facility] 42 mcg 3-15 1 } [place] in ity of (0.06 %) 00:00: each [place] nasal spray 00 nostril 2 Med ical (two) Branch times daily. triamcinolo 2021-0 Yes [id number] 1{spray Use 1 [facility] ne 55 mcg 3-15 } [place] in ity of nasal 00:00: each [place] inhaler 00 nostril 2 Medical (two) Branch times daily. ipratropium 2021-0 Yes [id number] 1{spray Use 1 [facility] 42 mcg 3-15 1 } [place] in ity of (0.06 %) 00:00: each [place] nasal spray 00 nostril 2 Med ical (two) Branch times daily. triamcinolo 2021-0 Yes [id number] 1{spray Use 1 [facility] ne 55 mcg 3-15 } [place] in ity of nasal 00:00: each [place] inhaler 00 nostril 2 Medical (two) Branch times daily. ipratropium 2021-0 Yes [id number] 1{spray Use 1 [facility] 42 mcg 3-15 1 } [place] in ity of (0.06 %) 00:00: each [place] nasal spray 00 nostril 2 Med ical (two) Branch times daily. triamcinolo 2021-0 Yes [id number] 1{spray Use 1 [facility] ne 55 mcg 3-15 } [place] in ity of nasal 00:00: each [place] inhaler 00 nostril 2 Medical (two) Branch times daily. ipratropium 2-0 Yes [id number] 1{spray Use 1 [facility] 42 mcg 3-15 1 } [place] in ity of (0.06 %) 00:00: each [place] nasal spray 00 nostril 2 Med ical (two) Branch times daily. triamcinolo 2021-0 Yes [id number] 1{spray Use 1 [facility] ne 55 mcg 3-15 } [place] in ity of nasal 00:00: each [place] inhaler 00 nostril 2 Medical (two) Branch times daily. ipratropium 2021-0 Yes [id number] 1{spray Use 1 [facility] 42 mcg 3-15 1 } [place] in ity of (0.06 %) 00:00: each [place] nasal spray 00 nostril 2 Med ical (two) Branch times daily. triamcinolo 2021-0 Yes [id number] 1{spray Use 1 [facility] ne 55 mcg 3-15 } [place] in ity of nasal 00:00: each [place] inhaler 00 nostril 2 Medical (two) Branch times daily. ipratropium 2021-0 Yes [id number] 1{spray Use 1 [facility] 42 mcg 3-15 1 } [place] in ity of (0.06 %) 00:00: each [place] nasal spray 00 nostril 2 Med ical (two) Branch times daily. triamcinolo 2021-0 Yes [id number] 1{spray Use 1 [facility] ne 55 mcg 3-15 } [place] in ity of nasal 00:00: each [place] inhaler 00 nostril 2 Medical (two) Branch times daily. ipratropium 2021-0 Yes [id number] 1{spray Use 1 [facility] 42 mcg 3-15 1 } [place] in ity of (0.06 %) 00:00: each [place] nasal spray 00 nostril 2 Med ical (two) Branch times daily. triamcinolo 2021-0 Yes [id number] 1{spray Use 1 [facility] ne 55 mcg 3-15 } [place] in ity of nasal 00:00: each [place] inhaler 00 nostril 2 Medical (two) Branch times daily. ipratropium 2021-0 Yes [id number] 1{spray Use 1 [facility] 42 mcg 3-15 1 } [place] in ity of (0.06 %) 00:00: each [place] nasal spray 00 nostril 2 Med ical (two) Branch times daily. triamcinolo 2021-0 Yes [id number] 1{spray Use 1 [facility] ne 55 mcg 3-15 } [place] in ity of nasal 00:00: each [place] inhaler 00 nostril 2 Medical (two) Branch times daily. ipratropium 2021-0 Yes [id number] 1{spray Use 1 [facility] 42 mcg 3-15 1 } [place] in ity of (0.06 %) 00:00: each [place] nasal spray 00 nostril 2 Med ical (two) Branch times daily. triamcinolo 2021-0 Yes [id number] 1{spray Use 1 [facility] ne 55 mcg 3-15 } [place] in ity of nasal 00:00: each [place] inhaler 00 nostril 2 Medical (two) Branch times daily. ipratropium 2021-0 Yes [id number] 1{spray Use 1 [facility] 42 mcg 3-15 1 } [place] in ity of (0.06 %) 00:00: each [place] nasal spray 00 nostril 2 Med ical (two) Branch times daily. triamcinolo 2021-0 Yes [id number] 1{spray Use 1 [facility] ne 55 mcg 3-15 } [place] in ity of nasal 00:00: each [place] inhaler 00 nostril 2 Medical (two) Branch times daily. ipratropium 2021-0 Yes [id number] 1{spray Use 1 [facility] 42 mcg 3-15 1 } [place] in ity of (0.06 %) 00:00: each [place] nasal spray 00 nostril 2 Med ical (two) Branch times daily. triamcinolo 2021-0 Yes [id number] 1{spray Use 1 [facility] ne 55 mcg 3-15 } [place] in ity of nasal 00:00: each [place] inhaler 00 nostril 2 Medical (two) Branch times daily. ipratropium 2021-0 Yes [id number] 1{spray Use 1 [facility] 42 mcg 3-15 1 } [place] in ity of (0.06 %) 00:00: each [place] nasal spray 00 nostril 2 Med ical (two) Branch times daily. triamcinolo 2021-0 Yes [id number] 1{spray Use 1 [facility] ne 55 mcg 3-15 } [place] in ity of nasal 00:00: each [place] inhaler 00 nostril 2 Medical (two) Branch times daily. ipratropium 2021-0 Yes [id number] 1{spray Use 1 [facility] 42 mcg 3-15 1 } [place] in ity of (0.06 %) 00:00: each [place] nasal spray 00 nostril 2 Med ical (two) Branch times daily. triamcinolo 2021-0 Yes [id number] 1{spray Use 1 [facility] ne 55 mcg 3-15 } [place] in ity of nasal 00:00: each [place] inhaler 00 nostril 2 Medical (two) Branch times daily. ipratropium 2021-0 Yes [id number] 1{spray Use 1 [facility] 42 mcg 3-15 1 } [place] in ity of (0.06 %) 00:00: each [place] nasal spray 00 nostril 2 Med ical (two) Branch times daily. triamcinolo 2021-0 Yes [id number] 1{spray Use 1 [facility] ne 55 mcg 3-15 } [place] in ity of nasal 00:00: each [place] inhaler 00 nostril 2 Medical (two) Branch times daily. ipratropium 2021-0 Yes [id number] 1{spray Use 1 [facility] 42 mcg 3-15 1 } [place] in ity of (0.06 %) 00:00: each [place] nasal spray 00 nostril 2 Med ical (two) Branch times daily. triamcinolo 2021-0 Yes [id number] 1{spray Use 1 [facility] ne 55 mcg 3-15 } [place] in ity of nasal 00:00: each [place] inhaler 00 nostril 2 Medical (two) Branch times daily. ipratropium 2021-0 Yes [id number] 1{spray Use 1 [facility] 42 mcg 3-15 1 } [place] in ity of (0.06 %) 00:00: each [place] nasal spray 00 nostril 2 Med ical (two) Branch times daily. triamcinolo 2021-0 Yes [id number] 1{spray Use 1 [facility] ne 55 mcg 3-15 } [place] in ity of nasal 00:00: each [place] inhaler 00 nostril 2 Medical (two) Branch times daily. ipratropium 2021-0 Yes [id number] 1{spray Use 1 [facility] 42 mcg 3-15 1 } [place] in ity of (0.06 %) 00:00: each [place] nasal spray 00 nostril 2 Med ical (two) Branch times daily. triamcinolo 2021-0 Yes [id number] 1{spray Use 1 [facility] ne 55 mcg 3-15 } [place] in ity of nasal 00:00: each [place] inhaler 00 nostril 2 Medical (two) Branch times daily. ipratropium 2021-0 Yes [id number] 1{spray Use 1 [facility] 42 mcg 3-15 1 } [place] in ity of (0.06 %) 00:00: each [place] nasal spray 00 nostril 2 Med ical (two) Branch times daily. triamcinolo 2021-0 Yes [id number] 1{spray Use 1 [facility] ne 55 mcg 3-15 } [place] in ity of nasal 00:00: each [place] inhaler 00 nostril 2 Medical (two) Branch times daily. ipratropium 2021-0 Yes [id number] 1{spray Use 1 [facility] 42 mcg 3-15 1 } [place] in ity of (0.06 %) 00:00: each [place] nasal spray 00 nostril 2 Med ical (two) Branch times daily. triamcinolo 2021-0 Yes [id number] 1{spray Use 1 [facility] ne 55 mcg 3-15 } [place] in ity of nasal 00:00: each [place] inhaler 00 nostril 2 Medical (two) Branch times daily. ipratropium 2021-0 Yes [id number] 1{spray Use 1 [facility] 42 mcg 3-15 1 } [place] in ity of (0.06 %) 00:00: each [place] nasal spray 00 nostril 2 Med ical (two) Branch times daily. triamcinolo 2021-0 Yes [id number] 1{spray Use 1 [facility] ne 55 mcg 3-15 } [place] in ity of nasal 00:00: each [place] inhaler 00 nostril 2 Medical (two) Branch times daily. ipratropium 2021-0 Yes [id number] 1{spray Use 1 [facility] 42 mcg 3-15 1 } [place] in ity of (0.06 %) 00:00: each [place] nasal spray 00 nostril 2 Med ical (two) Branch times daily. triamcinolo 2021-0 Yes [id number] 1{spray Use 1 [facility] ne 55 mcg 3-15 } [place] in ity of nasal 00:00: each [place] inhaler 00 nostril 2 Medical (two) Branch times daily. ipratropium 2021-0 Yes [id number] 1{spray Use 1 [facility] 42 mcg 3-15 1 } [place] in ity of (0.06 %) 00:00: each [place] nasal spray 00 nostril 2 Med ical (two) Branch times daily. triamcinolo 2021-0 Yes [id number] 1{spray Use 1 [facility] ne 55 mcg 3-15 } [place] in ity of nasal 00:00: each [place] inhaler 00 nostril 2 Medical (two) Branch times daily. ipratropium 2021-0 Yes [id number] 1{spray Use 1 [facility] 42 mcg 3-15 1 } [place] in ity of (0.06 %) 00:00: each [place] nasal spray 00 nostril 2 Med ical (two) Branch times daily. triamcinolo 2021-0 Yes [id number] 1{spray Use 1 [facility] ne 55 mcg 3-15 } [place] in ity of nasal 00:00: each [place] inhaler 00 nostril 2 Medical (two) Branch times daily. ipratropium 2021-0 Yes [id number] 1{spray Use 1 [facility] 42 mcg 3-15 1 } [place] in ity of (0.06 %) 00:00: each [place] nasal spray 00 nostril 2 Med ical (two) Branch times daily. triamcinolo 2021-0 Yes [id number] 1{spray Use 1 [facility] ne 55 mcg 3-15 } [place] in ity of nasal 00:00: each [place] inhaler 00 nostril 2 Medical (two) Branch times daily. ipratropium 2021-0 Yes [id number] 1{spray Use 1 [facility] 42 mcg 3-15 1 } [place] in ity of (0.06 %) 00:00: each [place] nasal spray 00 nostril 2 Med ical (two) Branch times daily. triamcinolo 2021-0 Yes [id number] 1{spray Use 1 [facility] ne 55 mcg 3-15 } [place] in ity of nasal 00:00: each [place] inhaler 00 nostril 2 Medical (two) Branch times daily. ipratropium 2-0 Yes [id number] 1{spray Use 1 [facility] 42 mcg 3-15 1 } [place] in ity of (0.06 %) 00:00: each [place] nasal spray 00 nostril 2 Med ical (two) Branch times daily. triamcinolo 2021-0 Yes [id number] 1{spray Use 1 [facility] ne 55 mcg 3-15 } [facility] 00:00: each [place] inhaler 00 nostril 2 Medical (two) Branch times daily. ipratropium 2021-0 Yes [id number] 1{spray Use 1 [facility] 42 mcg 3-15 1 } [facility] (0.06 %) 00:00: each [place] nasal spray 00 nostril 2 Med ical (two) Branch times daily. triamcinolo 2021-0 Yes [id number] 1{spray Use 1 [facility] 55 mcg 3-15 } [facility] nasal 00:00: each [place] inhaler 00 nostril 2 Medical (two) Branch times daily. ipratropium 2021-0 Yes [id number] 1{spray Use 1 [facility] 42 mcg 3-15 1 } [facility] of (0.06 %) 00:00: each [place] nasal spray 00 nostril 2 Med ical (two) Branch times daily. triamcinolo 2021-0 Yes [id number] 1{spray Use 1 [facility] 55 mcg 3-15 } [facility] nasal 00:00: each [place] inhaler 00 nostril 2 Medical (two) Branch times daily. ipratropium 2021-0 Yes [id number] 1{spray Use 1 [facility] 42 mcg 3-15 1 } [facility] (0.06 %) 00:00: each [place] nasal spray 00 nostril 2 Med ical (two) Branch times daily. triamcinolo 2021-0 Yes [id number] 1{spray Use 1 [facility] 55 mcg 3-15 } [facility] nasal 00:00: each [place] inhaler 00 nostril 2 Medical (two) Branch times daily. ipratropium 2021-0 Yes [id number] 1{spray Use 1 [facility] 42 mcg 3-15 1 } [facility] (0.06 %) 00:00: each [place] nasal spray 00 nostril 2 Med ical (two) Branch times daily. triamcinolo 2021-0 Yes [id number] 1{spray Use 1 [facility] 55 mcg 3-15 } [facility] nasal 00:00: each [place] inhaler 00 nostril 2 Medical (two) Branch times daily. ipratropium 2021-0 Yes [id number] 1{spray Use 1 [facility] 42 mcg 3-15 1 } [place] of (0.06 %) 00:00: each [place] nasal spray 00 nostril 2 Med ical (two) Branch times daily. triamcinolo 2021-0 Yes [id number] 1{spray Use 1 [facility] 55 mcg 3-15 } [facility] nasal 00:00: each [place] inhaler 00 nostril 2 Medical (two) Branch times daily. ipratropium 2021-0 Yes [id number] 1{spray Use 1 [facility] 42 mcg 3-15 1 } [facility] of (0.06 %) 00:00: each [place] nasal spray 00 nostril 2 Med ical (two) Branch times daily. triamcinolo 2021-0 Yes [id number] 1{spray Use 1 [facility] 55 mcg 3-15 } [facility] nasal 00:00: each [place] inhaler 00 nostril 2 Medical (two) Branch times daily. ipratropium 2021-0 Yes [id number] 1{spray Use 1 [facility] 42 mcg 3-15 1 } [facility] (0.06 %) 00:00: each [place] nasal spray 00 nostril 2 Med ical (two) Branch times daily. triamcinolo 2021-0 Yes [id number] 1{spray Use 1 [facility] 55 mcg 3-15 } [place] nasal 00:00: each [place] inhaler 00 nostril 2 Medical (two) Branch times daily. ipratropium 2021-0 Yes [id number] 1{spray Use 1 [facility] 42 mcg 3-15 1 } [place] of (0.06 %) 00:00: each [place] nasal spray 00 nostril 2 Med ical (two) Branch times daily. triamcinolo 2021-0 Yes [id number] 1{spray Use 1 [facility] 55 mcg 3-15 } [facility] nasal 00:00: each [place] inhaler 00 nostril 2 Medical (two) Branch times daily. ipratropium 2-0 Yes [id number] 1{spray Use 1 [facility] 42 mcg 3-15 1 } [place] of (0.06 %) 00:00: each [place] nasal spray 00 nostril 2 Med ical (two) Branch times daily. triamcinolo 2021-0 Yes [id number] 1{spray Use 1 [facility] 55 mcg 3-15 } [place] [facility] nasal 00:00: each [place] inhaler 00 nostril 2 Medical (two) Branch times daily. ipratropium 2021-0 Yes [id number] 1{spray Use 1 [facility] 42 mcg 3-15 1 } [place] (0.06 %) 00:00: each [place] nasal spray 00 nostril 2 Med ical (two) Branch times daily. triamcinolo 2021-0 Yes [id number] 1{spray Use 1 [facility] 55 mcg 3-15 } [place] nasal 00:00: each [place] inhaler 00 nostril 2 Medical (two) Branch times daily. ipratropium 2021-0 Yes [id number] 1{spray Use 1 [facility] 42 mcg 3-15 1 } [place] (0.06 %) 00:00: each [place] nasal spray 00 nostril 2 Med ical (two) Branch times daily. triamcinolo 2021-0 Yes [id number] 1{spray Use 1 [facility] 55 mcg 3-15 } [place] [facility] nasal 00:00: each [place] inhaler 00 nostril 2 Medical (two) Branch times daily. ipratropium 2021-0 Yes [id number] 1{spray Use 1 [facility] 42 mcg 3-15 1 } [place] (0.06 %) 00:00: each [place] nasal spray 00 nostril 2 Med ical (two) Branch times daily. triamcinolo 2021-0 Yes [id number] 1{spray Use 1 [facility] 55 mcg 3-15 } [place] [facility] nasal 00:00: each [place] inhaler 00 nostril 2 Medical (two) Branch times daily. ipratropium 2-0 Yes [id number] 1{spray Use 1 [facility] 42 mcg 3-15 1 } [place] [facility] (0.06 %) 00:00: each [place] nasal spray 00 nostril 2 Med ical (two) Branch times daily. triamcinolo 2021-0 Yes [id number] 1{spray Use 1 [facility] 55 mcg 3-15 } [place] [facility] nasal 00:00: each [place] inhaler 00 nostril 2 Medical (two) Branch times daily. ipratropium 2-0 Yes [id number] 1{spray Use 1 [facility] 42 mcg 3-15 1 } [place] [facility] (0.06 %) 00:00: each [place] nasal spray 00 nostril 2 Med ical (two) Branch times daily. triamcinolo 2021-0 Yes [id number] 1{spray Use 1 [facility] 55 mcg 3-15 } [place] [facility] nasal 00:00: each [place] inhaler 00 nostril 2 Medical (two) Branch times daily. ipratropium 2021-0 Yes [id number] 1{spray Use 1 [facility] 42 mcg 3-15 1 } [place] [facility] (0.06 %) 00:00: each [place] nasal spray 00 nostril 2 Med ical (two) Branch times daily. triamcinolo 2021-0 Yes [id number] 1{spray Use 1 [facility] 55 mcg 3-15 } [place] [facility] nasal 00:00: each [place] inhaler 00 nostril 2 Medical (two) Branch times daily. ipratropium 2021-0 Yes [id number] 1{spray Use 1 [facility] 42 mcg 3-15 1 } [place] [facility] (0.06 %) 00:00: each [place] nasal spray 00 nostril 2 Med ical (two) Branch times daily. triamcinolo 2021-0 Yes [id number] 1{spray Use 1 [facility] 55 mcg 3-15 } [place] [facility] nasal 00:00: each [place] inhaler 00 nostril 2 Medical (two) Branch times daily. ipratropium 2021-0 Yes [id number] 1{spray Use 1 [facility] 42 mcg 3-15 1 } [place] [facility] (0.06 %) 00:00: each [place] nasal spray 00 nostril 2 Med ical (two) Branch times daily. triamcinolo 2021-0 Yes [id number] 1{spray Use 1 [facility] 55 mcg 3-15 } [place] [facility] nasal 00:00: each [place] inhaler 00 nostril 2 Medical (two) Branch times daily. ipratropium 2-0 Yes [id number] 1{spray Use 1 [facility] 42 mcg 3-15 1 } [place] [facility] (0.06 %) 00:00: each [place] nasal spray 00 nostril 2 Med ical (two) Branch times daily. triamcinolo 2021-0 Yes [id number] 1{spray Use 1 [facility] 55 mcg 3-15 } [place] [facility] nasal 00:00: each [place] inhaler 00 nostril 2 Medical (two) Branch times daily. ipratropium 2021-0 Yes [id number] 1{spray Use 1 [facility] 42 mcg 3-15 1 } [place] [facility] (0.06 %) 00:00: each [place] nasal spray 00 nostril 2 Med ical (two) Branch times daily. triamcinolo 2021-0 Yes [id number] 1{spray Use 1 [facility] 55 mcg 3-15 } [place] [facility] nasal 00:00: each [place] inhaler 00 nostril 2 Medical (two) Branch times daily. ipratropium 2021-0 Yes [id number] 1{spray Use 1 [facility] 42 mcg 3-15 1 } [place] [facility] (0.06 %) 00:00: each [place] nasal spray 00 nostril 2 Med ical (two) Branch times daily. triamcinolo 2021-0 Yes [id number] 1{spray Use 1 [facility] 55 mcg 3-15 } [place] [facility] nasal 00:00: each [place] inhaler 00 nostril 2 Medical (two) Branch times daily. ipratropium 2021-0 Yes [id number] 1{spray Use 1 [facility] 42 mcg 3-15 1 } [place] [facility] (0.06 %) 00:00: each [place] nasal spray 00 nostril 2 Med ical (two) Branch times daily. triamcinolo 2021-0 Yes [id number] 1{spray Use 1 [facility] 55 mcg 3-15 } [place] [facility] nasal 00:00: each [place] inhaler 00 nostril 2 Medical (two) Branch times daily. ipratropium 2021-0 Yes [id number] 1{spray Use 1 [facility] 42 mcg 3-15 1 } [place] (0.06 %) 00:00: each [place] nasal spray 00 nostril 2 Med ical (two) Branch times daily. triamcinolo 2021-0 Yes [id number] 1{spray Use 1 [facility] 55 mcg 3-15 } [place] [facility] nasal 00:00: each [place] inhaler 00 nostril 2 Medical (two) Branch times daily. ipratropium 2021-0 Yes [id number] 1{spray Use 1 [facility] 42 mcg 3-15 1 } [place] (0.06 %) 00:00: each [place] nasal spray 00 nostril 2 Med ical (two) Branch times daily. triamcinolo 2021-0 Yes [id number] 1{spray Use 1 [facility] 55 mcg 3-15 } [place] [facility] nasal 00:00: each [place] inhaler 00 nostril 2 Medical (two) Branch times daily. ipratropium 2021-0 Yes [id number] 1{spray Use 1 [facility] 42 mcg 3-15 1 } [place] [facility] (0.06 %) 00:00: each [place] nasal spray 00 nostril 2 Med ical (two) Branch times daily. triamcinolo 2021-0 Yes [id number] 1{spray Use 1 [facility] 55 mcg 3-15 } [place] [facility] nasal 00:00: each [place] inhaler 00 nostril 2 [facility] (two) Branch times daily. ipratropium 2021-0 Yes [id number] 1{spray Use 1 [facility] 42 mcg 3-15 1 } [facility] of (0.06 %) 00:00: each [place] nasal spray 00 nostril 2 Med ical (two) Branch times daily. triamcinolo 2021-0 Yes [id number] 1{spray Use 1 [facility] 55 mcg 3-15 } [place] [facility] nasal 00:00: each [place] inhaler 00 nostril 2 Medical (two) Branch times daily. ipratropium 2021-0 Yes [id number] 1{spray Use 1 [facility] 42 mcg 3-15 1 } [place] [facility] (0.06 %) 00:00: each [place] nasal spray 00 nostril 2 Med ical (two) Branch times daily. triamcinolo 2021-0 Yes [id number] 1{spray Use 1 [facility] 55 mcg 3-15 } [place] [facility] nasal 00:00: each [place] inhaler 00 nostril 2 Medical (two) Branch times daily. ipratropium 2021-0 Yes [id number] 1{spray Use 1 [facility] 42 mcg 3-15 1 } [place] [facility] of (0.06 %) 00:00: each [place] nasal spray 00 nostril 2 Med ical (two) Branch times daily. triamcinolo 2021-0 Yes [id number] 1{spray Use 1 [facility] 55 mcg 3-15 } [place] [facility] nasal 00:00: each [place] inhaler 00 nostril 2 Medical (two) Branch times daily. ipratropium 2021-0 Yes [id number] 1{spray Use 1 [facility] 42 mcg 3-15 1 } [place] [facility] of (0.06 %) 00:00: each [place] nasal spray 00 nostril 2 Med ical (two) Branch times daily. triamcinolo 2021-0 Yes [id number] 1{spray Use 1 [facility] 55 mcg 3-15 } [place] [facility] nasal 00:00: each [place] inhaler 00 nostril 2 Medical (two) Branch times daily. ipratropium 2021-0 Yes [id number] 1{spray Use 1 [facility] 42 mcg 3-15 1 } [place] [facility] of (0.06 %) 00:00: each [place] nasal spray 00 nostril 2 Med ical (two) Branch times daily. triamcinolo 2021-0 Yes [id number] 1{spray Use 1 [facility] 55 mcg 3-15 } [place] [facility] nasal 00:00: each [place] inhaler 00 nostril 2 Medical (two) Branch times daily. ipratropium 2021-0 Yes [id number] 1{spray Use 1 [facility] 42 mcg 3-15 1 } [place] [facility] of (0.06 %) 00:00: each [place] nasal spray 00 nostril 2 Med ical (two) Branch times daily. triamcinolo 2021-0 Yes [id number] 1{spray Use 1 [facility] 55 mcg 3-15 } [place] [facility] nasal 00:00: each [place] inhaler 00 nostril 2 Medical (two) Branch times daily. ipratropium 2021-0 Yes [id number] 1{spray Use 1 [facility] 42 mcg 3-15 1 } [place] [facility] of (0.06 %) 00:00: each [place] nasal spray 00 nostril 2 Med ical (two) Branch times daily. triamcinolo 2021-0 Yes [id number] 1{spray Use 1 [facility] 55 mcg 3-15 } [place] [facility] nasal 00:00: each [place] inhaler 00 nostril 2 Medical (two) Branch times daily. ipratropium 2021-0 Yes [id number] 1{spray Use 1 [facility] 42 mcg 3-15 1 } [place] [facility] of (0.06 %) 00:00: each [place] nasal spray 00 nostril 2 Med ical (two) Branch times daily. triamcinolo 2021-0 Yes [id number] 1{spray Use 1 [facility] 55 mcg 3-15 } [place] [facility] nasal 00:00: each [place] inhaler 00 nostril 2 Medical (two) Branch times daily. ipratropium 2021-0 Yes [id number] 1{spray Use 1 [facility] 42 mcg 3-15 1 } [place] [facility] of (0.06 %) 00:00: each [place] nasal spray 00 nostril 2 Med ical (two) Branch times daily. triamcinolo 2021-0 Yes [id number] 1{spray Use 1 [facility] 55 mcg 3-15 } [place] [facility] nasal 00:00: each [place] inhaler 00 nostril 2 Medical (two) Branch times daily. ipratropium 2021-0 Yes [id number] 1{spray Use 1 [facility] 42 mcg 3-15 1 } [place] [facility] of (0.06 %) 00:00: each [place] nasal spray 00 nostril 2 Med ical (two) Branch times daily. triamcinolo 2021-0 Yes [id number] 1{spray Use 1 [facility] 55 mcg 3-15 } [place] [facility] nasal 00:00: each [place] inhaler 00 nostril 2 Medical (two) Branch times daily. ipratropium 2021-0 Yes [id number] 1{spray Use 1 [facility] 42 mcg 3-15 1 } [place] [facility] of (0.06 %) 00:00: each [place] nasal spray 00 nostril 2 Med ical (two) Branch times daily. triamcinolo 2021-0 Yes [id number] 1{spray Use 1 [facility] 55 mcg 3-15 } [place] [facility] nasal 00:00: each [place] inhaler 00 nostril 2 Medical (two) Branch times daily. ipratropium 2-0 Yes [id number] 1{spray Use 1 [facility] 42 mcg 3-15 1 } [place] of (0.06 %) 00:00: each [place] nasal spray 00 nostril 2 Med ical (two) Branch times daily. triamcinolo 2021-0 Yes [id number] 1{spray Use 1 [facility] 55 mcg 3-15 } [place] [facility] nasal 00:00: each [place] inhaler 00 nostril 2 Medical (two) Branch times daily. ipratropium Yes [id number] 1{spray Use 1 [facility] 42 mcg 3-15 1 } [place] [facility] of (0.06 %) 00:00: each [place] nasal spray 00 nostril 2 Med ical (two) Branch times daily. triamcinolo Yes [id number] 1{spray Use 1 [facility] 55 mcg 3-15 } [place] [facility] nasal 00:00: each [place] inhaler 00 nostril 2 Medical (two) Branch times daily. ipratropium Yes [id number] 1{spray Use 1 [facility] 42 mcg 3-15 1 } [place] [facility] of (0.06 %) 00:00: each [place] nasal spray 00 nostril 2 Med ical (two) Branch times daily. triamcinolo Yes [id number] 1{spray Use 1 [facility] 55 mcg 3-15 } [place] [facility] nasal 00:00: each [place] inhaler 00 nostril 2 Medical (two) Branch times daily. triamcinolo 2022- No [id number] 1{spray Use 1 [facility] 55 mcg 3-15 07-18 } [place] f nasal 00:00: 00:00 each [place] inhaler 00 :00 nostril 2 Medical (two) Branch times daily. triamcinolo 2022- No [id number] 1{spray Use 1 [facility] 55 mcg 3-15 07-18 } [place] f nasal 00:00: 00:00 each [place] inhaler 00 :00 nostril 2 Medical (two) Branch times daily. ipratropium 2022- No [id number] 1{spray Use 1 [facility] 42 mcg 3-15 07-11 1 } [place] [facility] of (0.06 %) 00:00: 00:00 each [place] nasal spray 00 :00 nostril 2 Med ical (two) Branch times daily. ipratropium 2022- No [id number] 1{spray Use 1 [facility] 42 mcg 3-15 07-11 1 } [place] of (0.06 %) 00:00: 00:00 each [place] nasal spray 00 :00 nostril 2 Med ical (two) Branch times daily. albuterol 2021-0 Yes [id number] 2.5mg Inhale 3 [facility] 2.5 mg /3 3-10 mL every 2 ity of mL (0.083 00:00: (two) [place] %) 00 hours as Medical nebulizer needed for Bran ch solution Shortness of Breath or Wheezing. budesonide 2021-0 Yes [id number] .5mg Inhale 2 [facility] 0.5 mg/2 mL 3-10 mL 2 (two) it y of nebulizer 00:00: times [place] solution 00 daily. [facility] albuterol 2021-0 Yes [id number] 2.5mg Inhale 3 [facility] 2.5 mg /3 3-10 mL every 2 ity of mL (0.083 00:00: (two) [place] %) 00 hours as Medical nebulizer needed for Bran ch solution Shortness of Breath or Wheezing. budesonide 2021-0 Yes [id number] .5mg Inhale 2 [facility] 0.5 mg/2 mL 3-10 mL 2 (two) it y of nebulizer 00:00: times [place] solution 00 daily. [facility] albuterol 2021-0 Yes [id number] 2.5mg Inhale 3 [facility] 2.5 mg /3 3-10 mL every 2 ity of mL (0.083 00:00: (two) [place] %) 00 hours as Medical nebulizer needed for Bran ch solution Shortness of Breath or Wheezing. budesonide 2021-0 Yes [id number] .5mg Inhale 2 [facility] 0.5 mg/2 mL 3-10 mL 2 (two) it y of nebulizer 00:00: times [place] solution 00 daily. [facility] albuterol 2021-0 Yes [id number] 2.5mg Inhale 3 [facility] 2.5 mg /3 3-10 mL every 2 ity of mL (0.083 00:00: (two) [place] %) 00 hours as Medical nebulizer needed for Bran ch solution Shortness of Breath or Wheezing. budesonide 2021-0 Yes [id number] .5mg Inhale 2 [facility] 0.5 mg/2 mL 3-10 mL 2 (two) it y of nebulizer 00:00: times [place] solution 00 daily. [facility] albuterol 2021-0 Yes [id number] 2.5mg Inhale 3 [facility] 2.5 mg /3 3-10 mL every 2 ity of mL (0.083 00:00: (two) [place] %) 00 hours as Medical nebulizer needed for Bran ch solution Shortness of Breath or Wheezing. budesonide 2021-0 Yes [id number] .5mg Inhale 2 [facility] 0.5 mg/2 mL 3-10 mL 2 (two) it y of nebulizer 00:00: times [place] solution 00 daily. [facility] albuterol 2021-0 Yes [id number] 2.5mg Inhale 3 [facility] 2.5 mg /3 3-10 mL every 2 ity of mL (0.083 00:00: (two) [place] %) 00 hours as Medical nebulizer needed for Bran ch solution Shortness of Breath or Wheezing. budesonide 2021-0 Yes [id number] .5mg Inhale 2 [facility] 0.5 mg/2 mL 3-10 mL 2 (two) it y of nebulizer 00:00: times [place] solution 00 daily. [facility] albuterol 2021-0 Yes [id number] 2.5mg Inhale 3 [facility] 2.5 mg /3 3-10 mL every 2 ity of mL (0.083 00:00: (two) [place] %) 00 hours as Medical nebulizer needed for Bran ch solution Shortness of Breath or Wheezing. budesonide 2021-0 Yes [id number] .5mg Inhale 2 [facility] 0.5 mg/2 mL 3-10 mL 2 (two) it y of nebulizer 00:00: times [place] solution 00 daily. [facility] albuterol 2021-0 Yes [id number] 2.5mg Inhale 3 [facility] 2.5 mg /3 3-10 mL every 2 ity of mL (0.083 00:00: (two) [place] %) 00 hours as Medical nebulizer needed for Bran ch solution Shortness of Breath or Wheezing. budesonide 2021-0 Yes [id number] .5mg Inhale 2 [facility] 0.5 mg/2 mL 3-10 mL 2 (two) it y of nebulizer 00:00: times [place] solution 00 daily. [facility] albuterol 2021-0 Yes [id number] 2.5mg Inhale 3 [facility] 2.5 mg /3 3-10 mL every 2 ity of mL (0.083 00:00: (two) [place] %) 00 hours as Medical nebulizer needed for Bran ch solution Shortness of Breath or Wheezing. budesonide 2021-0 Yes [id number] .5mg Inhale 2 [facility] 0.5 mg/2 mL 3-10 mL 2 (two) it y of nebulizer 00:00: times [place] solution 00 daily. [facility] albuterol 2021-0 Yes [id number] 2.5mg Inhale 3 [facility] 2.5 mg /3 3-10 mL every 2 ity of mL (0.083 00:00: (two) [place] %) 00 hours as Medical nebulizer needed for Bran ch solution Shortness of Breath or Wheezing. budesonide 2021-0 Yes [id number] .5mg Inhale 2 [facility] 0.5 mg/2 mL 3-10 mL 2 (two) it y of nebulizer 00:00: times [place] solution 00 daily. [facility] albuterol 2021-0 Yes [id number] 2.5mg Inhale 3 [facility] 2.5 mg /3 3-10 mL every 2 ity of mL (0.083 00:00: (two) [place] %) 00 hours as Medical nebulizer needed for Bran ch solution Shortness of Breath or Wheezing. budesonide 2021-0 Yes [id number] .5mg Inhale 2 [facility] 0.5 mg/2 mL 3-10 mL 2 (two) it y of nebulizer 00:00: times [place] solution 00 daily. [facility] albuterol 2021-0 Yes [id number] 2.5mg Inhale 3 [facility] 2.5 mg /3 3-10 mL every 2 ity of mL (0.083 00:00: (two) [place] %) 00 hours as Medical nebulizer needed for Bran ch solution Shortness of Breath or Wheezing. budesonide 2021-0 Yes [id number] .5mg Inhale 2 [facility] 0.5 mg/2 mL 3-10 mL 2 (two) it y of nebulizer 00:00: times [place] solution 00 daily. [facility] albuterol 2021-0 Yes [id number] 2.5mg Inhale 3 [facility] 2.5 mg /3 3-10 mL every 2 ity of mL (0.083 00:00: (two) [place] %) 00 hours as Medical nebulizer needed for Bran ch solution Shortness of Breath or Wheezing. budesonide 2-0 Yes [id number] .5mg Inhale 2 [facility] 0.5 mg/2 mL 3-10 mL 2 (two) it y of nebulizer 00:00: times [place] solution 00 daily. [facility] albuterol 2-0 Yes [id number] 2.5mg Inhale 3 [facility] 2.5 mg /3 3-10 mL every 2 ity of mL (0.083 00:00: (two) [place] %) 00 hours as Medical nebulizer needed for Bran ch solution Shortness of Breath or Wheezing. budesonide 2-0 Yes [id number] .5mg Inhale 2 [facility] 0.5 mg/2 mL 3-10 mL 2 (two) it y of nebulizer 00:00: times [place] solution 00 daily. [facility] budesonide 2021-0 Yes [id number] .5mg Inhale 2 [facility] 0.5 mg/2 mL 3-10 mL 2 (two) it y of nebulizer 00:00: times [place] solution 00 daily. [facility] budesonide 2021-0 Yes [id number] .5mg Inhale 2 [facility] 0.5 mg/2 mL 3-10 mL 2 (two) it y of nebulizer 00:00: times [place] solution 00 daily. [facility] budesonide 2021-0 Yes [id number] .5mg Inhale 2 [facility] 0.5 mg/2 mL 3-10 mL 2 (two) it y of nebulizer 00:00: times [place] solution 00 daily. [facility] budesonide 2-0 Yes [id number] .5mg Inhale 2 [facility] 0.5 mg/2 mL 3-10 mL 2 (two) it y of nebulizer 00:00: times [place] solution 00 daily. [facility] budesonide 2-0 Yes [id number] .5mg Inhale 2 [facility] 0.5 mg/2 mL 3-10 mL 2 (two) it y of nebulizer 00:00: times [place] solution 00 daily. [facility] budesonide 2-0 Yes [id number] .5mg Inhale 2 [facility] 0.5 mg/2 mL 3-10 mL 2 (two) it y of nebulizer 00:00: times [place] solution 00 daily. [facility] budesonide 2-0 Yes [id number] .5mg Inhale 2 [facility] 0.5 mg/2 mL 3-10 mL 2 (two) it y of nebulizer 00:00: times [place] solution 00 daily. [facility] budesonide 2-0 Yes [id number] .5mg Inhale 2 [facility] 0.5 mg/2 mL 3-10 mL 2 (two) it y of nebulizer 00:00: times [place] solution 00 daily. [facility] budesonide 2-0 Yes [id number] .5mg Inhale 2 [facility] 0.5 mg/2 mL 3-10 mL 2 (two) it y of nebulizer 00:00: times [place] solution 00 daily. [facility] budesonide 2-0 Yes [id number] .5mg Inhale 2 [facility] 0.5 mg/2 mL 3-10 mL 2 (two) it y of nebulizer 00:00: times [place] solution 00 daily. [facility] budesonide 2-0 Yes [id number] .5mg Inhale 2 [facility] 0.5 mg/2 mL 3-10 mL 2 (two) it y of nebulizer 00:00: times [place] solution 00 daily. [facility] budesonide 2-0 Yes [id number] .5mg Inhale 2 [facility] 0.5 mg/2 mL 3-10 mL 2 (two) it y of nebulizer 00:00: times [place] solution 00 daily. [facility] budesonide 2-0 Yes [id number] .5mg Inhale 2 [facility] 0.5 mg/2 mL 3-10 mL 2 (two) it y of nebulizer 00:00: times [place] solution 00 daily. [facility] budesonide 2-0 Yes [id number] .5mg Inhale 2 [facility] 0.5 mg/2 mL 3-10 mL 2 (two) it y of nebulizer 00:00: times [place] solution 00 daily. [facility] budesonide 2022-0 Yes [id number] .5mg Inhale 2 [facility] 0.5 mg/2 mL 3-10 mL 2 (two) it y of nebulizer 00:00: times [place] solution 00 daily. [facility] budesonide 2022-0 Yes [id number] .5mg Inhale 2 [facility] 0.5 mg/2 mL 3-10 mL 2 (two) it y of nebulizer 00:00: times [place] solution 00 daily. [facility] budesonide 2022-0 Yes [id number] .5mg Inhale 2 [facility] 0.5 mg/2 mL 3-10 mL 2 (two) it y of nebulizer 00:00: times [place] solution 00 daily. [facility] budesonide 2-0 Yes [id number] .5mg Inhale 2 [facility] 0.5 mg/2 mL 3-10 mL 2 (two) it y of nebulizer 00:00: times [place] solution 00 daily. [facility] budesonide 2-0 Yes [id number] .5mg Inhale 2 [facility] 0.5 mg/2 mL 3-10 mL 2 (two) it y of nebulizer 00:00: times [place] solution 00 daily. [facility] budesonide 2-0 Yes [id number] .5mg Inhale 2 [facility] 0.5 mg/2 mL 3-10 mL 2 (two) it y of nebulizer 00:00: times [place] solution 00 daily. [facility] budesonide 2-0 Yes [id number] .5mg Inhale 2 [facility] 0.5 mg/2 mL 3-10 mL 2 (two) it y of nebulizer 00:00: times [place] solution 00 daily. [facility] budesonide 2-0 Yes [id number] .5mg Inhale 2 [facility] 0.5 mg/2 mL 3-10 mL 2 (two) it y of nebulizer 00:00: times [place] solution 00 daily. [facility] budesonide 2-0 Yes [id number] .5mg Inhale 2 [facility] 0.5 mg/2 mL 3-10 mL 2 (two) it y of nebulizer 00:00: times [place] solution 00 daily. [facility] budesonide 2-0 Yes [id number] .5mg Inhale 2 [facility] 0.5 mg/2 mL 3-10 mL 2 (two) it y of nebulizer 00:00: times [place] solution 00 daily. [facility] budesonide 2022-0 Yes [id number] .5mg Inhale 2 [facility] 0.5 mg/2 mL 3-10 mL 2 (two) it y of nebulizer 00:00: times [place] solution 00 daily. [facility] budesonide 2022-0 Yes [id number] .5mg Inhale 2 [facility] 0.5 mg/2 mL 3-10 mL 2 (two) it y of nebulizer 00:00: times [place] solution 00 daily. [facility] budesonide 2022-0 Yes [id number] .5mg Inhale 2 [facility] 0.5 mg/2 mL 3-10 mL 2 (two) it y of nebulizer 00:00: times [place] solution 00 daily. [facility] budesonide 2-0 Yes [id number] .5mg Inhale 2 [facility] 0.5 mg/2 mL 3-10 mL 2 (two) it y of nebulizer 00:00: times [place] solution 00 daily. [facility] budesonide 2-0 Yes [id number] .5mg Inhale 2 [facility] 0.5 mg/2 mL 3-10 mL 2 (two) it y of nebulizer 00:00: times [place] solution 00 daily. [facility] budesonide 2-0 Yes [id number] .5mg Inhale 2 [facility] 0.5 mg/2 mL 3-10 mL 2 (two) it y of nebulizer 00:00: times [place] solution 00 daily. [facility] budesonide 2-0 Yes [id number] .5mg Inhale 2 [facility] 0.5 mg/2 mL 3-10 mL 2 (two) it y of nebulizer 00:00: times [place] solution 00 daily. [facility] budesonide 2-0 Yes [id number] .5mg Inhale 2 [facility] 0.5 mg/2 mL 3-10 mL 2 (two) it y of nebulizer 00:00: times [place] solution 00 daily. [facility] budesonide 2-0 Yes [id number] .5mg Inhale 2 [facility] 0.5 mg/2 mL 3-10 mL 2 (two) it y of nebulizer 00:00: times [place] solution 00 daily. [facility] budesonide 2-0 3- No [id number] .5mg Inhale 2 [facility] 0.5 mg/2 mL 3-10 01-05 mL 2 (two) i ty of nebulizer 00:00: 00:00 times [place] solution 00 :00 daily. [facility] budesonide 2-0 3- No [id number] .5mg Inhale 2 [facility] 0.5 mg/2 mL 3-10 01-05 mL 2 (two) i ty of nebulizer 00:00: 00:00 times [place] solution 00 :00 daily. [facility] budesonide 2-0 3- No [id number] .5mg Inhale 2 [facility] 0.5 mg/2 mL 3-10 01-05 mL 2 (two) i ty of nebulizer 00:00: 00:00 times [place] solution 00 :00 daily. [facility] budesonide 2022- No [id number] .[id number] Inhale 2 [facility] 0.5 mg/2 mL 3-10 01-05 mL 2 (two) i ty of nebulizer 00:00: 00:00 times [place] solution 00 :00 daily. [facility] albuterol 2021- No [id number] 2.5mg Inhale 3 [facility] 2.5 mg /3 3-10 09-29 mL every 2 ity of mL (0.083 00:00: 00:00 (two) [place] %) 00 :00 hours as Medical nebulizer needed for Bran [facility] solution Shortness of Breath or Wheezing. albuterol 2021- No [id number] 2.5mg Inhale 3 [facility] 2.5 mg /3 3-10 09-29 mL every 2 ity of mL (0.083 00:00: 00:00 (two) [place] %) 00 :00 hours as Medical nebulizer needed for Bran [facility] solution Shortness of Breath or Wheezing. albuterol 2021- No [id number] 2.5mg Inhale 3 [facility] 2.5 mg /3 3-10 09-29 mL every 2 ity of mL (0.083 00:00: 00:00 (two) [place] %) 00 :00 hours as Medical nebulizer needed for Bran [facility] solution Shortness of Breath or Wheezing. Nebulizer Yes [id number] Provide [facility] Accessories 3-04 nebulizer ity of Kit 00:00: kit and appropriat [facility] accessorie s. Nebulizer Yes [id number] Provide [facility] Accessories 3-04 nebulizer ity of Kit 00:00: kit and appropriat [facility] accessorie s. Nebulizer 0 Yes [id number] Provide [facility] Accessories 3-04 nebulizer ity of Kit 00:00: kit and appropriat [facility] accessorie s. Nebulizer Yes [id number] Provide [facility] Accessories 3-04 nebulizer ity of Kit 00:00: kit and appropriat [facility] accessorie s. Nebulizer Yes [id number] Provide [facility] Accessories 3-04 nebulizer ity of Kit 00:00: kit and [place] 00 appropriat [facility] accessorie s. Nebulizer 2021-0 Yes [id number] Provide [facility] Accessories 3-04 nebulizer ity of Kit 00:00: kit and [place] 00 appropriat [facility] accessorie s. Nebulizer 2021-0 Yes [id number] Provide [facility] Accessories 3-04 nebulizer ity of Kit 00:00: kit and [place] 00 appropriat [facility] accessorie s. Nebulizer 2021-0 Yes [id number] Provide [facility] Accessories 3-04 nebulizer ity of Kit 00:00: kit and [place] 00 appropriat [facility] accessorie s. Nebulizer 2021-0 Yes [id number] Provide [facility] Accessories 3-04 nebulizer ity of Kit 00:00: kit and [place] 00 appropriat [facility] accessorie s. Nebulizer 2021-0 Yes [id number] Provide [facility] Accessories 3-04 nebulizer ity of Kit 00:00: kit and [place] 00 appropriat [facility] accessorie s. Nebulizer 2021-0 Yes [id number] Provide [facility] Accessories 3-04 nebulizer ity of Kit 00:00: kit and [place] 00 appropriat [facility] accessorie s. Nebulizer 2021-0 Yes [id number] Provide [facility] Accessories 3-04 nebulizer ity of Kit 00:00: kit and [place] 00 appropriat [facility] accessorie s. Nebulizer 2021-0 Yes [id number] Provide [facility] Accessories 3-04 nebulizer ity of Kit 00:00: kit and [place] 00 appropriat [facility] accessorie s. Nebulizer 2021-0 Yes [id number] Provide [facility] Accessories 3-04 nebulizer ity of Kit 00:00: kit and [place] 00 appropriat [facility] accessorie s. Nebulizer 2021-0 Yes [id number] Provide [facility] Accessories 3-04 nebulizer ity of Kit 00:00: kit and [place] 00 appropriat [facility] accessorie s. Nebulizer 2021-0 Yes [id number] Provide [facility] Accessories 3-04 nebulizer ity of Kit 00:00: kit and [place] 00 appropriat [facility] accessorie s. Nebulizer 2021-0 Yes [id number] Provide [facility] Accessories 3-04 nebulizer ity of Kit 00:00: kit and [place] 00 appropriat [facility] accessorie s. Nebulizer 2021-0 Yes [id number] Provide [facility] Accessories 3-04 nebulizer ity of Kit 00:00: kit and [place] 00 appropriat [facility] accessorie s. Nebulizer 2021-0 Yes [id number] Provide [facility] Accessories 3-04 nebulizer ity of Kit 00:00: kit and 00 appropriat [facility] accessorie s. Nebulizer 2021-0 Yes [id number] Provide [facility] Accessories 3-04 nebulizer ity of Kit 00:00: kit and [place] 00 appropriat [facility] accessorie s. Nebulizer 2021-0 Yes [id number] Provide [facility] Accessories 3-04 nebulizer ity of Kit 00:00: kit and 00 appropriat [facility] accessorie s. Nebulizer 2021-0 Yes [id number] Provide [facility] Accessories 3-04 nebulizer ity of Kit 00:00: kit and 00 appropriat [facility] accessorie s. Nebulizer 2021-0 Yes [id number] Provide [facility] Accessories 3-04 nebulizer ity of Kit 00:00: kit and appropriat [facility] accessorie s. Nebulizer 2021-0 Yes [id number] Provide [facility] Accessories 3-04 nebulizer ity of Kit 00:00: kit and appropriat [facility] accessorie s. Nebulizer 2021-0 Yes [id number] Provide [facility] Accessories 3-04 nebulizer ity of Kit 00:00: kit and appropriat [facility] accessorie s. Nebulizer 2021-0 Yes [id number] Provide [facility] Accessories 3-04 nebulizer ity of Kit 00:00: kit and appropriat [facility] accessorie s. Nebulizer 2021-0 Yes [id number] Provide [facility] Accessories 3-04 nebulizer ity of Kit 00:00: kit and appropriat [facility] accessorie s. Nebulizer 2021-0 Yes [id number] Provide [facility] Accessories 3-04 nebulizer ity of Kit 00:00: kit and 00 appropriat [facility] accessorie s. Nebulizer 2021-0 Yes [id number] Provide [facility] Accessories 3-04 nebulizer ity of Kit 00:00: kit and 00 appropriat [facility] accessorie s. Nebulizer 0 Yes [id number] Provide [facility] Accessories 3-04 nebulizer ity of Kit 00:00: kit and [place] 00 appropriat [facility] accessorie s. Nebulizer 0 Yes [id number] Provide [facility] Accessories 3-04 nebulizer ity of Kit 00:00: kit and [place] 00 appropriat [facility] accessorie s. Nebulizer 0 Yes [id number] Provide [facility] Accessories 3-04 nebulizer ity of Kit 00:00: kit and [place] 00 appropriat [facility] accessorie s. Nebulizer 0 Yes [id number] Provide [facility] Accessories 3-04 nebulizer ity of Kit 00:00: kit and [place] 00 appropriat [facility] accessorie s. Nebulizer 0 Yes [id number] Provide [facility] Accessories 3-04 nebulizer ity of Kit 00:00: kit and [place] 00 appropriat [facility] accessorie s. Nebulizer 0 Yes [id number] Provide [facility] Accessories 3-04 nebulizer ity of Kit 00:00: kit and [place] 00 appropriat [facility] accessorie s. Nebulizer 0 Yes [id number] Provide [facility] Accessories 3-04 nebulizer ity of Kit 00:00: kit and 00 appropriat [facility] accessorie s. Nebulizer 0 Yes [id number] Provide [facility] Accessories 3-04 nebulizer ity of Kit 00:00: kit and [place] 00 appropriat [facility] accessorie s. Nebulizer 0 Yes [id number] Provide [facility] Accessories 3-04 nebulizer ity of Kit 00:00: kit and [place] 00 appropriat [facility] accessorie s. Nebulizer 0 Yes [id number] Provide [facility] Accessories 3-04 nebulizer ity of Kit 00:00: kit and 00 appropriat [facility] accessorie s. Nebulizer 0 Yes [id number] Provide [facility] Accessories 3-04 nebulizer ity of Kit 00:00: kit and [place] 00 appropriat [facility] accessorie s. Nebulizer 0 Yes [id number] Provide [facility] Accessories 3-04 nebulizer ity of Kit 00:00: kit and appropriat [facility] accessorie s. Nebulizer 0 Yes [id number] Provide [facility] Accessories 3-04 nebulizer ity of Kit 00:00: kit and [place] 00 appropriat [facility] accessorie s. Nebulizer 0 Yes [id number] Provide [facility] Accessories 3-04 nebulizer ity of Kit 00:00: kit and [place] 00 appropriat [facility] accessorie s. Nebulizer 0 Yes [id number] Provide [facility] Accessories 3-04 nebulizer ity of Kit 00:00: kit and [place] 00 appropriat [facility] accessorie s. Nebulizer 0 Yes [id number] Provide [facility] Accessories 3-04 nebulizer ity of Kit 00:00: kit and [place] 00 appropriat [facility] accessorie s. Nebulizer 0 Yes [id number] Provide [facility] Accessories 3-04 nebulizer ity of Kit 00:00: kit and [place] 00 appropriat [facility] accessorie s. Nebulizer 0 Yes [id number] Provide [facility] Accessories 3-04 nebulizer ity of Kit 00:00: kit and [place] 00 appropriat [facility] accessorie s. Nebulizer 0 Yes [id number] Provide [facility] Accessories 3-04 nebulizer ity of Kit 00:00: kit and [place] 00 appropriat [facility] accessorie s. Nebulizer 0 Yes [id number] Provide [facility] Accessories 3-04 nebulizer ity of Kit 00:00: kit and [place] 00 appropriat [facility] accessorie s. Nebulizer 0 Yes [id number] Provide [facility] Accessories 3-04 nebulizer ity of Kit 00:00: kit and [place] 00 appropriat [facility] accessorie s. Nebulizer 2021-0 Yes [id number] Provide [facility] Accessories 3-04 nebulizer ity of Kit 00:00: kit and [place] 00 appropriat [facility] accessorie s. Nebulizer 0 Yes [id number] Provide [facility] Accessories 3-04 nebulizer ity of Kit 00:00: kit and [place] 00 appropriat [facility] accessorie s. Nebulizer 0 Yes [id number] Provide [facility] Accessories 3-04 nebulizer ity of Kit 00:00: kit and [place] 00 appropriat [facility] accessorie s. Nebulizer 2022-0 Yes [id number] Provide [facility] Accessories 3-04 nebulizer ity of Kit 00:00: kit and [place] 00 appropriat [facility] accessorie s. Nebulizer 2021-0 Yes [id number] Provide [facility] Accessories 3-04 nebulizer ity of Kit 00:00: kit and [place] 00 appropriat [facility] accessorie s. Nebulizer 2021-0 Yes [id number] Provide [facility] Accessories 3-04 nebulizer ity of Kit 00:00: kit and 00 appropriat [facility] accessorie s. Nebulizer 2021-0 Yes [id number] Provide [facility] Accessories 3-04 nebulizer ity of Kit 00:00: kit and 00 appropriat [facility] accessorie s. Nebulizer 0 Yes [id number] Provide [facility] Accessories 3-04 nebulizer ity of Kit 00:00: kit and [place] 00 appropriat [facility] accessorie s. Nebulizer 2021-0 Yes [id number] Provide [facility] Accessories 3-04 nebulizer ity of Kit 00:00: kit and 00 appropriat [facility] accessorie s. Nebulizer 2021-0 Yes [id number] Provide [facility] Accessories 3-04 nebulizer ity of Kit 00:00: kit and 00 appropriat [facility] accessorie s. Nebulizer 2021-0 Yes [id number] Provide [facility] Accessories 3-04 nebulizer ity of Kit 00:00: kit and [place] 00 appropriat [facility] accessorie s. Nebulizer 2021-0 Yes [id number] Provide [facility] Accessories 3-04 nebulizer ity of Kit 00:00: kit and 00 appropriat [facility] accessorie s. Nebulizer 2021-0 Yes [id number] Provide [facility] Accessories 3-04 nebulizer ity of Kit 00:00: kit and 00 appropriat [facility] accessorie s. Nebulizer 2021-0 Yes [id number] Provide [facility] Accessories 3-04 nebulizer ity of Kit 00:00: kit and 00 appropriat [facility] accessorie s. Nebulizer 2021-0 Yes [id number] Provide [facility] Accessories 3-04 nebulizer ity of Kit 00:00: kit and appropriat [facility] accessorie s. Nebulizer 2021-0 Yes [id number] Provide [facility] Accessories 3-04 nebulizer ity of Kit 00:00: kit and [place] 00 appropriat [facility] accessorie s. Nebulizer 2021-0 Yes [id number] Provide [facility] Accessories 3-04 nebulizer ity of Kit 00:00: kit and [place] 00 appropriat [facility] accessorie s. Nebulizer 2021-0 Yes [id number] Provide [facility] Accessories 3-04 nebulizer ity of Kit 00:00: kit and [place] 00 appropriat [facility] accessorie s. Nebulizer 2021-0 Yes [id number] Provide [facility] Accessories 3-04 nebulizer ity of Kit 00:00: kit and [place] 00 appropriat [facility] accessorie s. Nebulizer 2021-0 Yes [id number] Provide [facility] Accessories 3-04 nebulizer ity of Kit 00:00: kit and [place] 00 appropriat [facility] accessorie s. Nebulizer 2021-0 Yes [id number] Provide [facility] Accessories 3-04 nebulizer ity of Kit 00:00: kit and [place] 00 appropriat [facility] accessorie s. Nebulizer 2021-0 Yes [id number] Provide [facility] Accessories 3-04 nebulizer ity of Kit 00:00: kit and [place] 00 appropriat [facility] accessorie s. Nebulizer 2021-0 Yes [id number] Provide [facility] Accessories 3-04 nebulizer ity of Kit 00:00: kit and [place] 00 appropriat [facility] accessorie s. Nebulizer 2021-0 Yes [id number] Provide [facility] Accessories 3-04 nebulizer ity of Kit 00:00: kit and [place] 00 appropriat [facility] accessorie s. Nebulizer 2021-0 Yes [id number] Provide [facility] Accessories 3-04 nebulizer ity of Kit 00:00: kit and [place] 00 appropriat [facility] accessorie s. Nebulizer 2021-0 Yes [id number] Provide [facility] Accessories 3-04 nebulizer ity of Kit 00:00: kit and [place] 00 appropriat [facility] accessorie s. Nebulizer 2021-0 Yes [id number] Provide [facility] Accessories 3-04 nebulizer ity of Kit 00:00: kit and [place] 00 appropriat [facility] accessorie s. Nebulizer 2021-0 Yes [id number] Provide [facility] Accessories 3-04 nebulizer ity of Kit 00:00: kit and [place] 00 appropriat [facility] accessorie s. Nebulizer 2021-0 Yes [id number] Provide [facility] Accessories 3-04 nebulizer ity of Kit 00:00: kit and [place] 00 appropriat [facility] accessorie s. Nebulizer 2021-0 Yes [id number] Provide [facility] Accessories 3-04 nebulizer ity of Kit 00:00: kit and 00 appropriat [facility] accessorie s. Nebulizer 2021-0 Yes [id number] Provide [facility] Accessories 3-04 nebulizer ity of Kit 00:00: kit and [place] 00 appropriat [facility] accessorie s. Nebulizer 2021-0 Yes [id number] Provide [facility] Accessories 3-04 nebulizer ity of Kit 00:00: kit and 00 appropriat [facility] accessorie s. Nebulizer 2021-0 Yes [id number] Provide [facility] Accessories 3-04 nebulizer ity of Kit 00:00: kit and 00 appropriat [facility] accessorie s. Nebulizer 2021-0 Yes [id number] Provide [facility] Accessories 3-04 nebulizer ity of Kit 00:00: kit and 00 appropriat [facility] accessorie s. Nebulizer 2021-0 Yes [id number] Provide [facility] Accessories 3-04 nebulizer ity of Kit 00:00: kit and appropriat [facility] accessorie s. Nebulizer 2021-0 Yes [id number] Provide [facility] Accessories 3-04 nebulizer ity of Kit 00:00: kit and appropriat [facility] accessorie s. Nebulizer 2021-0 Yes [id number] Provide [facility] Accessories 3-04 nebulizer ity of Kit 00:00: kit and [place] 00 appropriat [facility] accessorie s. Nebulizer 2021-0 Yes [id number] Provide [facility] Accessories 3-04 nebulizer ity of Kit 00:00: kit and 00 appropriat [facility] accessorie s. Nebulizer 2021-0 Yes [id number] Provide [facility] Accessories 3-04 nebulizer ity of Kit 00:00: kit and 00 appropriat [facility] accessorie s. Nebulizer 2021-0 Yes [id number] Provide [facility] Accessories 3-04 nebulizer ity of Kit 00:00: kit and 00 appropriat [facility] accessorie s. Nebulizer 0 Yes [id number] Provide [facility] Accessories 3-04 nebulizer ity of Kit 00:00: kit and [place] 00 appropriat [facility] accessorie s. Nebulizer 2021-0 Yes [id number] Provide [facility] Accessories 3-04 nebulizer ity of Kit 00:00: kit and [place] 00 appropriat [facility] accessorie s. Nebulizer 2021-0 Yes [id number] Provide [facility] Accessories 3-04 nebulizer ity of Kit 00:00: kit and [place] 00 appropriat [facility] accessorie s. Nebulizer 0 Yes [id number] Provide [facility] Accessories 3-04 nebulizer ity of Kit 00:00: kit and [place] 00 appropriat [facility] accessorie s. Nebulizer 0 Yes [id number] Provide [facility] Accessories 3-04 nebulizer ity of Kit 00:00: kit and [place] 00 appropriat [facility] accessorie s. Nebulizer 2021-0 Yes [id number] Provide [facility] Accessories 3-04 nebulizer ity of Kit 00:00: kit and [place] 00 appropriat [facility] accessorie s. Nebulizer 2021-0 Yes [id number] Provide [facility] Accessories 3-04 nebulizer ity of Kit 00:00: kit and 00 appropriat [facility] accessorie s. Nebulizer 2021-0 Yes [id number] Provide [facility] Accessories 3-04 nebulizer ity of Kit 00:00: kit and [place] 00 appropriat [facility] accessorie s. Nebulizer 2021-0 Yes [id number] Provide [facility] Accessories 3-04 nebulizer ity of Kit 00:00: kit and [place] 00 appropriat [facility] accessorie s. Nebulizer 2021-0 Yes [id number] Provide [facility] Accessories 3-04 nebulizer ity of Kit 00:00: kit and 00 appropriat [facility] accessorie s. Nebulizer 2021-0 Yes [id number] Provide [facility] Accessories 3-04 nebulizer ity of Kit 00:00: kit and [place] 00 appropriat [facility] accessorie s. Nebulizer 2021-0 Yes [id number] Provide [facility] Accessories 3-04 nebulizer ity of Kit 00:00: kit and 00 appropriat [facility] accessorie s. Nebulizer 0 Yes [id number] Provide [facility] Accessories 3-04 nebulizer ity of Kit 00:00: kit and [place] 00 appropriat [facility] accessorie s. Nebulizer 0 Yes [id number] Provide [facility] Accessories 3-04 nebulizer ity of Kit 00:00: kit and [place] 00 appropriat [facility] accessorie s. Nebulizer 0 Yes [id number] Provide [facility] Accessories 3-04 nebulizer ity of Kit 00:00: kit and [place] 00 appropriat [facility] accessorie s. Nebulizer 0 Yes [id number] Provide [facility] Accessories 3-04 nebulizer ity of Kit 00:00: kit and [place] 00 appropriat [facility] accessorie s. Nebulizer 0 Yes [id number] Provide [facility] Accessories 3-04 nebulizer ity of Kit 00:00: kit and [place] 00 appropriat [facility] accessorie s. Nebulizer 0 Yes [id number] Provide [facility] Accessories 3-04 nebulizer ity of Kit 00:00: kit and [place] 00 appropriat [facility] accessorie s. Nebulizer 0 Yes [id number] Provide [facility] Accessories 3-04 nebulizer ity of Kit 00:00: kit and [place] 00 appropriat [facility] accessorie s. Nebulizer 0 Yes [id number] Provide [facility] Accessories 3-04 nebulizer ity of Kit 00:00: kit and [place] 00 appropriat [facility] accessorie s. Nebulizer 0 Yes [id number] Provide [facility] Accessories 3-04 nebulizer ity of Kit 00:00: kit and [place] 00 appropriat [facility] accessorie s. Nebulizer 0 Yes [id number] Provide [facility] Accessories 3-04 nebulizer ity of Kit 00:00: kit and [place] 00 appropriat [facility] accessorie s. Nebulizer 0 Yes [id number] Provide [facility] Accessories 3-04 nebulizer ity of Kit 00:00: kit and [place] 00 appropriat [facility] accessorie s. Nebulizer 0 Yes [id number] Provide [facility] Accessories 3-04 nebulizer ity of Kit 00:00: kit and [place] 00 appropriat [facility] accessorie s. Nebulizer 0 Yes [id number] Provide [facility] Accessories 3-04 nebulizer ity of Kit 00:00: kit and [place] 00 appropriat [facility] accessorie s. Nebulizer 2021-0 Yes [id number] Provide [facility] Accessories 3-04 nebulizer ity of Kit 00:00: kit and [place] 00 appropriat [facility] accessorie s. Nebulizer 2021-0 Yes [id number] Provide [facility] Accessories 3-04 nebulizer ity of Kit 00:00: kit and 00 appropriat [facility] accessorie s. Nebulizer 0 Yes [id number] Provide [facility] Accessories 3-04 nebulizer ity of Kit 00:00: kit and 00 appropriat [facility] accessorie s. Nebulizer 0 Yes [id number] Provide [facility] Accessories 3-04 nebulizer ity of Kit 00:00: kit and [place] 00 appropriat [facility] accessorie s. Nebulizer 2021-0 Yes [id number] Provide [facility] Accessories 3-04 nebulizer ity of Kit 00:00: kit and 00 appropriat [facility] accessorie s. Nebulizer 2021-0 Yes [id number] Provide [facility] Accessories 3-04 nebulizer ity of Kit 00:00: kit and 00 appropriat [facility] accessorie s. Nebulizer 2021-0 Yes [id number] Provide [facility] Accessories 3-04 nebulizer ity of Kit 00:00: kit and [place] 00 appropriat [facility] accessorie s. Nebulizer 2021-0 Yes [id number] Provide [facility] Accessories 3-04 nebulizer ity of Kit 00:00: kit and appropriat [facility] accessorie s. Nebulizer 2021-0 Yes [id number] Provide [facility] Accessories 3-04 nebulizer ity of Kit 00:00: kit and 00 appropriat [facility] accessorie s. Nebulizer 2021-0 Yes [id number] Provide [facility] Accessories 3-04 nebulizer ity of Kit 00:00: kit and 00 appropriat [facility] accessorie s. Nebulizer 2021-0 Yes [id number] Provide [facility] Accessories 3-04 nebulizer ity of Kit 00:00: kit and appropriat [facility] accessorie s. Nebulizer 2021-0 Yes [id number] Provide [facility] Accessories 3-04 nebulizer ity of Kit 00:00: kit and [place] 00 appropriat [facility] accessorie s. Nebulizer 2021-0 Yes [id number] Provide [facility] Accessories 3-04 nebulizer ity of Kit 00:00: kit and [place] 00 appropriat [facility] accessorie s. Nebulizer 2021-0 Yes [id number] Provide [facility] Accessories 3-04 nebulizer ity of Kit 00:00: kit and [place] 00 appropriat [facility] accessorie s. Nebulizer 2021-0 Yes [id number] Provide [facility] Accessories 3-04 nebulizer ity of Kit 00:00: kit and [place] 00 appropriat [facility] accessorie s. Nebulizer 2021-0 Yes [id number] Provide [facility] Accessories 3-04 nebulizer ity of Kit 00:00: kit and [place] 00 appropriat [facility] accessorie s. Nebulizer 2021-0 Yes [id number] Provide [facility] Accessories 3-04 nebulizer ity of Kit 00:00: kit and [place] 00 appropriat [facility] accessorie s. Nebulizer 2021-0 Yes [id number] Provide [facility] Accessories 3-04 nebulizer ity of Kit 00:00: kit and [place] 00 appropriat [facility] accessorie s. Nebulizer 2021-0 Yes [id number] Provide [facility] Accessories 3-04 nebulizer ity of Kit 00:00: kit and [place] 00 appropriat [facility] accessorie s. Nebulizer 2021-0 Yes [id number] Provide [facility] Accessories 3-04 nebulizer ity of Kit 00:00: kit and [place] 00 appropriat [facility] accessorie s. Nebulizer 2021-0 Yes [id number] Provide [facility] Accessories 3-04 nebulizer ity of Kit 00:00: kit and [place] 00 appropriat [facility] accessorie s. Nebulizer 2021-0 Yes [id number] Provide [facility] Accessories 3-04 nebulizer ity of Kit 00:00: kit and [place] 00 appropriat [facility] accessorie s. Nebulizer 2021-0 Yes [id number] Provide [facility] Accessories 3-04 nebulizer ity of Kit 00:00: kit and [place] 00 appropriat [facility] accessorie s. Nebulizer 2021-0 Yes [id number] Provide [facility] Accessories 3-04 nebulizer ity of Kit 00:00: kit and [place] 00 appropriat [facility] accessorie s. Nebulizer 2021-0 Yes [id number] Provide [facility] Accessories 3-04 nebulizer ity of Kit 00:00: kit and [place] 00 appropriat [facility] accessorie s. Nebulizer 2021-0 Yes [id number] Provide [facility] Accessories 3-04 nebulizer ity of Kit 00:00: kit and 00 appropriat [facility] accessorie s. Nebulizer 2021-0 Yes [id number] Provide [facility] Accessories 3-04 nebulizer ity of Kit 00:00: kit and [place] 00 appropriat [facility] accessorie s. Nebulizer 2021-0 Yes [id number] Provide [facility] Accessories 3-04 nebulizer ity of Kit 00:00: kit and 00 appropriat [facility] accessorie s. Nebulizer 2021-0 Yes [id number] Provide [facility] Accessories 3-04 nebulizer ity of Kit 00:00: kit and appropriat [facility] accessorie s. Nebulizer 2021-0 Yes [id number] Provide [facility] Accessories 3-04 nebulizer ity of Kit 00:00: kit and 00 appropriat [facility] accessorie s. Nebulizer 2021-0 Yes [id number] Provide [facility] Accessories 3-04 nebulizer ity of Kit 00:00: kit and appropriat [facility] accessorie s. Nebulizer 2021-0 Yes [id number] Provide [facility] Accessories 3-04 nebulizer ity of Kit 00:00: kit and appropriat [facility] accessorie s. Nebulizer 2021-0 Yes [id number] Provide [facility] Accessories 3-04 nebulizer ity of Kit 00:00: kit and appropriat [facility] accessorie s. Nebulizer 2021-0 Yes [id number] Provide [facility] Accessories 3-04 nebulizer ity of Kit 00:00: kit and appropriat [facility] accessorie s. Nebulizer 2021-0 Yes [id number] Provide [facility] Accessories 3-04 nebulizer ity of Kit 00:00: kit and appropriat [facility] accessorie s. Nebulizer 2021-0 Yes [id number] Provide [facility] Accessories 3-04 nebulizer ity of Kit 00:00: kit and [place] 00 appropriat [facility] accessorie s. Nebulizer 0 Yes [id number] Provide [facility] Accessories 3-04 nebulizer ity of Kit 00:00: kit and [place] 00 appropriat [facility] accessorie s. Nebulizer 2021-0 Yes [id number] Provide [facility] Accessories 3-04 nebulizer ity of Kit 00:00: kit and [place] 00 appropriat Medical e Branch accessorie s. Nebulizer 2021-0 Yes [id number] Provide [facility] Accessories 3-04 nebulizer ity of Kit 00:00: kit and [place] 00 appropriat Medical e Branch accessorie s. Nebulizer 2021-0 Yes [id number] Provide [facility] Accessories 3-04 nebulizer ity of Kit 00:00: kit and 00 appropriat Medical e Branch accessorie s. Nebulizer 2021-0 Yes [id number] Provide [facility] Accessories 3-04 nebulizer ity of Kit 00:00: kit and 00 appropriat Medical e Branch accessorie s. Nebulizer 2021-0 Yes [id number] Provide [facility] Accessories 3-04 nebulizer ity of Kit 00:00: kit and [place] 00 appropriat Medical e Branch accessorie s. Nebulizer 2021-0 Yes [id number] Provide [facility] Accessories 3-04 nebulizer ity of Kit 00:00: kit and 00 appropriat Medical e Branch accessorie s. Nebulizer 2021-0 Yes [id number] Provide [facility] Accessories 3-04 nebulizer ity of Kit 00:00: kit and 00 appropriat Medical e Branch accessorie s. Nebulizer 2021-0 Yes [id number] Provide [facility] Accessories 3-04 nebulizer ity of Kit 00:00: kit and [place] appropriat Medical e Branch accessorie s. Nebulizer 2021-0 Yes [id number] Provide [facility] Accessories 3-04 nebulizer ity of Kit 00:00: kit and appropriat Medical e Branch accessorie s. Nebulizer 2021-0 Yes [id number] Provide [facility] Accessories 3-04 nebulizer ity of Kit 00:00: kit and [place] 00 appropriat Medical e Branch accessorie s. Nebulizer 2021-0 Yes [id number] Provide [facility] Accessories 3-04 nebulizer ity of Kit 00:00: kit and appropriat Medical e Branch accessorie s. Nebulizer Yes [id number] Provide [facility] Accessories 3-04 nebulizer ity of Kit 00:00: kit and [place] 00 appropriat Medical e Branch accessorie s. Nebulizer Yes [id number] Provide [facility] Accessories 3-04 nebulizer ity of Kit 00:00: kit and [place] 00 appropriat Medical e Branch accessorie s. ipratropium 2020-03 Yes [id number] .5mg Inhale 2.5 [facility] 0.02 % 2-03 mL every 4 ity of nebulizer 00:00: (four) [place] solution 00 hours as Medical needed for Branch Wheezing or Shortness of Breath. ipratropium 2020-03 Yes [id number] .5mg Inhale 2.5 [facility] 0.02 % 2-03 mL every 4 ity of nebulizer 00:00: (four) [place] solution 00 hours as Medical needed for Branch Wheezing or Shortness of Breath. ipratropium 2020-03 Yes [id number] .5mg Inhale 2.5 [facility] 0.02 % 2-03 mL every 4 ity of nebulizer 00:00: (four) [place] solution 00 hours as Medical needed for Branch Wheezing or Shortness of Breath. ipratropium 2020-03 Yes [id number] .5mg Inhale 2.5 [facility] 0.02 % 2-03 mL every 4 ity of nebulizer 00:00: (four) [place] solution 00 hours as Medical needed for Branch Wheezing or Shortness of Breath. ipratropium 2020-03 Yes [id number] .5mg Inhale 2.5 [facility] 0.02 % 2-03 mL every 4 ity of nebulizer 00:00: (four) [place] solution 00 hours as Medical needed for Branch Wheezing or Shortness of Breath. ipratropium 2020- Yes [id number] .5mg Inhale 2.5 [facility] 0.02 % 2-03 mL every 4 ity of nebulizer 00:00: (four) [place] solution 00 hours as Medical needed for Branch Wheezing or Shortness of Breath. ipratropium 2020- Yes [id number] .5mg Inhale 2.5 [facility] 0.02 % 2-03 mL every 4 ity of nebulizer 00:00: (four) [place] solution 00 hours as Medical needed for Branch Wheezing or Shortness of Breath. ipratropium 2020-03 Yes [id number] .5mg Inhale 2.5 [facility] 0.02 % 2-03 mL every 4 ity of nebulizer 00:00: (four) [place] solution 00 hours as Medical needed for Branch Wheezing or Shortness of Breath. ipratropium 2020-03 Yes [id number] .5mg Inhale 2.5 [facility] 0.02 % 2-03 mL every 4 ity of nebulizer 00:00: (four) [place] solution 00 hours as Medical needed for Branch Wheezing or Shortness of Breath. ipratropium 2020-03 Yes [id number] .5mg Inhale 2.5 [facility] 0.02 % 2-03 mL every 4 ity of nebulizer 00:00: (four) [place] solution 00 hours as Medical needed for Branch Wheezing or Shortness of Breath. ipratropium 2020-03 Yes [id number] .5mg Inhale 2.5 [facility] 0.02 % 2-03 mL every 4 ity of nebulizer 00:00: (four) [place] solution 00 hours as Medical needed for Branch Wheezing or Shortness of Breath. ipratropium 2020-03 Yes [id number] .5mg Inhale 2.5 [facility] 0.02 % 2-03 mL every 4 ity of nebulizer 00:00: (four) [place] solution 00 hours as Medical needed for Branch Wheezing or Shortness of Breath. ipratropium 2020-03 Yes [id number] .5mg Inhale 2.5 [facility] 0.02 % 2-03 mL every 4 ity of nebulizer 00:00: (four) [place] solution 00 hours as Medical needed for Branch Wheezing or Shortness of Breath. ipratropium 2020-03 Yes [id number] .5mg Inhale 2.5 [facility] 0.02 % 2-03 mL every 4 ity of nebulizer 00:00: (four) [place] solution 00 hours as Medical needed for Branch Wheezing or Shortness of Breath. ipratropium 2020-03- No [id number] .5mg Inhale 2.5 [facility] 0.02 % 2-03 09-29 mL every 4 ity of nebulizer 00:00: 00:00 (four) [place] solution 00 :00 hours as Medical needed for Branch Wheezing or Shortness of Breath. ipratropium 2020-03- No [id number] .5mg Inhale 2.5 [facility] 0.02 % 2-05 10-29 mL every 4 ity of nebulizer 00:00: 00:00 (four) [place] solution 00 :00 hours as Medical needed for Branch Wheezing or Shortness of Breath. ipratropium 2020-03- No [id number] .5mg Inhale 2.5 [facility] 0.02 % 2-05 10-29 mL every 4 ity of nebulizer 00:00: 00:00 (four) [place] solution 00 :00 hours as Medical needed for Branch Wheezing or Shortness of Breath. acetaminoph 2020-03- No 2{tbl} Take 2 U nivers en/diphenhy 0-19 10-19 tablets by i ty of dramine 10:59: 00:00 mouth [place] (TYLENOL PM 10 :00 every Medical EXTRA morning Branch STRENGTH and at ORAL) bedtime. Indication s: aches & pains at bedtime; takes at bedtime levothyroxi 2021- No [id number] 175ug Take 1 [facility] ne 175 mcg 7-29 03-18 tablet by ity of tablet 00:00: 00:00 mouth [place] 00 :00 every Medical morning. Branch ipratropium 2020- No [id number] 1{spray Use 1 [facility] 42 mcg 7-22 12- 1 } [place] in ity of (0.06 %) 00:00: 00:00 each [place] nasal spray 00 :00 nostril 2 Med ical (two) Branch times daily. benzonatate 2020- No [id number] 100mg Take 1 [facility] 100 mg 7-05 08-20 capsule by ity of capsule 00:00: 00:00 mouth 2 [place] 00 :00 (two) Medical times Branch daily as needed for Cough. pravastatin 2020- No [id number] 80mg Take 1 [facility] 80 mg 6-21 09-30 tablet by ity of tablet 00:00: 00:00 mouth at [place] 00 :00 bedtime. Medical Branch allopurinoL 2020- No [id number] 100mg Take 1 [facility] 100 mg 6-15 12-13 tablet by ity of tablet 00:00: 00:00 mouth [place] 00 :00 daily. Medical Branch hydrOXYzine 2020- No [id number] 10mg Take 1 [facility] 10 mg 08-08 tablet by ity of tablet 00:00: 00:00 mouth [place] 00 :00 every 6 Medical (six) Branch hours as needed for Itching or Anxiety (Insomnia) . traZODone 2020- No [id number] 50mg Take 1 [facility] 50 mg 08-03 tablet by ity of tablet 00:00: 00:00 mouth at [place] 00 :00 bedtime. Medical Branch tamsulosin 2020- No [id number] .4mg Take 1 [facility] 0.4 mg 24 08-03 capsule by ity of hr capsule 00:00: 00:00 mouth [place] 00 :00 daily. Medical Branch omeprazole 2020- No [id number] 40mg Take 1 [facility] 40 mg 07-27 capsule by ity of capsule 00:00: 00:00 mouth [place] 00 :00 daily. Medical Branch glipiZIDE 5 2020- No [id number] 2.5mg Take 0.5 [facility] mg tablet 06-29 tablets by ity of 00:00: 00:00 mouth 2 [place] 00 :00 (two) Medical times Branch daily. May increase to 1 tablet BID gradually if fasting glucose remains >130. fexofenadin 2020- No [id number] 180mg Take 1 [facility] e 180 mg 06-08 tablet by ity o f tablet 00:00: 00:00 mouth [place] 00 :00 daily. Medical Branch azelastine 2020- No [id number] 1{spray Use 1 [facility] 137 mcg 06-08 } [place] in ity of (0.1 %) 00:00: 00:00 each [place] nasal spray 00 :00 nostril 2 Med ical (two) Branch times daily. Use in each nostril as directed fluticasone 2020- No [id number] 1{spray Use 1 [facility] propionate 06-08 } [place] in ity of 50 00:00: 00:00 each [place] mcg/actuati 00 :00 nostril 2 Med ical on nasal (two) Branch spray times daily. azelastine 2020- No [id number] 1{spray Use 1 [facility] 137 mcg 225 04-07 } [place] in ity of (0.1 %) 00:00: 00:00 each [place] nasal spray 00 :00 nostril 2 Med ical (two) Branch times daily. Use in each nostril as directed allopurinoL 2020- No [id number] 100mg Take 1 [facility] 100 mg 04-25 06-14 tablet by ity of tablet 00:00: 00:00 mouth [place] 00 :00 daily. Medical Branch hydrOXYzine 2020- No [id number] 10mg Take 1 [facility] 10 mg 04-25 06-07 tablet by ity of tablet 00:00: 00:00 mouth [place] 00 :00 every 6 Medical (six) Branch hours as needed for Itching or Anxiety (Insomnia) . furosemide 2020- No [id number] 40mg Take 1 [facility] 40 mg 2-17 08-20 tablet by ity of tablet 00:00: 00:00 mouth [place] 00 :00 every Medical morning Branch and evening. furosemide 2020- No [id number] 40mg Take 1 [facility] 40 mg 2-17 08-20 tablet by ity of tablet 00:00: 00:00 mouth [place] 00 :00 every Medical morning Branch and evening. lisinopriL 2020- No [id number] 5mg Take 1 [facility] 5 mg tablet 2 05-12 tablet by it y of 00:00: 04:59 mouth [place] 00 :00 daily for Medical 90 days. Branch levothyroxi 2020- No [id number] 175ug Take 1 [facility] ne 175 mcg 03-30 07-26 tablet by ity of tablet 00:00: 00:00 [...] or Shortness of Breath. guaiFENesin 2020- No [id number] 200mg Take 1 [facility] 200 mg 1-19 10-19 tablet by ity of tablet 00:00: 00:00 mouth [place] 00 :00 every 4 Medical (four) Branch hours as needed for Cough. guaiFENesin 2020- No [id number] 200mg Take 1 [facility] 200 mg 1-19 10-19 tablet by ity of tablet 00:00: 00:00 mouth [place] 00 :00 every 4 Medical (four) Branch hours as needed for Cough. traZODone 2020- No [id number] 50mg Take 1 [facility] 50 mg -14 - tablet by ity of tablet 00:00: 00:00 mouth at [place] 00 :00 bedtime. Medical Branch tamsulosin 2020- No [id number] .4mg Take 1 [facility] 0.4 mg 24 03-17- capsule by ity of hr capsule 00:00: 00:00 mouth [place] 00 :00 daily. Medical Branch baclofen 10 2019-03 No [id number] 10mg Take 1 [facility] mg tablet 1-24 08-20 tablet by ity of 00:00: 00:00 mouth 3 [place] 00 :00 (three) Medical times Branch daily as needed for Pain (scale 7-10). baclofen 10 2019-03 No [id number] 10mg Take 1 [facility] mg tablet -24 08-20 tablet by ity of 00:00: 00:00 mouth 3 [place] 00 :00 (three) Medical times Branch daily as needed for Pain (scale 7-10). baclofen 10 2019-03 No [id number] 10mg Take 1 [facility] mg tablet 1-24 08-20 tablet by ity of 00:00: 00:00 mouth 3 [place] 00 :00 (three) Medical times Branch daily as needed for Pain (scale 7-10). hydrOXYzine 2019-03 No [id number] 10mg Take 1 [facility] 10 mg 1-24 12-22 tablet by ity of tablet 00:00: 00:00 mouth [place] 00 :00 every 6 Medical (six) Branch hours as needed for Itching or Anxiety (Insomnia) . atorvastati 2019-03 No Unive rs n 20 mg 03-25 ity of tablet 00:00: 00:00 [place] 00 :00 Medical Branch traZODone 2019-03- No [id number] 50mg Take 1 [facility] 50 mg 03-23-14 tablet by ity of tablet 00:00: 00:00 mouth at [place] 00 :00 bedtime. Medical Branch guaiFENesin 2019-03- No [id number] 200mg Take 1 [facility] 200 mg 03-23 12-16 tablet by ity of tablet 00:00: 00:00 mouth [place] 00 :00 every 4 Medical (four) Branch hours as needed for Cough. fluticasone 2019-03- No [id number] 1{spray Use 1 [facility] propionate 03-05 } [place] in ity of 50 00:00: 00:00 each [place] mcg/actuati 00 :00 nostril 2 Med ical on nasal (two) Branch spray times daily. fluticasone 2019-03- No [id number] 1{spray Use 1 [facility] propionate 03-05 } [place] in ity of 50 00:00: 00:00 each [place] mcg/actuati 00 :00 nostril 2 Med ical on nasal (two) Branch spray times daily. tamsulosin 2019-03- No [id number] .4mg Take 1 [facility] 0.4 mg 24 0-14 capsule by ity of hr capsule 00:00: 00:00 mouth [place] 00 :00 daily. Medical Branch pravastatin 2020- No [id number] 80mg Take 1 [facility] 80 mg 11-30-19 tablet by ity of tablet 00:00: 00:00 mouth at [place] 00 :00 bedtime. Medical Branch pravastatin 2020- No [id number] 80mg Take 1 [facility] 80 mg 11-30-19 tablet by ity of tablet 00:00: 00:00 mouth at [place] 00 :00 bedtime. Medical Branch albuterol 2020- No [id number] INHALE 2 [facility] 90 11-23 02-25 PUFFS BY ity of mcg/actuati 00:00: 00:00 MOUTH [place] on inhaler 00 :00 EVERY 6 Medica l HOURS Branch NEEEDED FOR WHEEZING cetirizine 2020- No [id number] 10mg Take 1 [facility] 10 mg 11-12- tablet by ity of tablet 00:00: 00:00 mouth [place] 00 :00 daily. Medical Branch cetirizine No [id number] 10mg Take 1 [facility] 10 mg 11-12- tablet by ity of tablet 00:00: 00:00 mouth [place] 00 :00 daily. Medical Branch furosemide 2020- No [id number] 40mg Take 1 [facility] 40 mg 11-1215 tablet by ity of tablet 00:00: 00:00 mouth [place] 00 :00 every Medical morning Branch and evening. glipiZIDE 5 No [id number] 2.5mg Take 0.5 [facility] mg tablet 11-01 tablets by ity of 00:00: 00:00 mouth 2 [place] 00 :00 (two) Medical times Branch daily. May increase to 1 tablet BID gradually if fasting glucose remains >130. glipiZIDE 5 No [id number] 2.5mg Take 0.5 [facility] mg tablet 11-01 tablets by ity of 00:00: 00:00 mouth 2 [place] 00 :00 (two) Medical times Branch daily. May increase to 1 tablet BID gradually if fasting glucose remains >130. allopurinoL No [id number] 100mg Take 1 [facility] 100 mg 11-0120 tablet by ity of tablet 00:00: 00:00 mouth [place] 00 :00 daily. Medical Branch ipratropium No [id number] .5mg Inhale 2.5 [facility] 0.02 % 08-12 12-03 mL every 4 ity of nebulizer 00:00: 00:00 (four) [place] solution 00 :00 hours as Medical needed for Branch Wheezing or Shortness of Breath. ipratropium No [id number] .5mg Inhale 2.5 [facility] 0.02 % 08-12 12-03 mL every 4 ity of nebulizer 00:00: 00:00 (four) [place] solution 00 :00 hours as Medical needed for Branch Wheezing or Shortness of Breath. ipratropium No [id number] .5mg Inhale 2.5 [facility] 0.02 % 6-11 12-03 mL every 4 ity of nebulizer 00:00: 00:00 (four) [place] solution 00 :00 hours as Medical needed for Branch Wheezing or Shortness of Breath. insulin 2018-03 2020- No [id number] TAKE 10 Un renetta detemir 2-27 01-10 UNITS IN ity of U-100 00:00: 00:00 THE [place] (LEVEMIR 00 :00 MORNING Medical U-100 AND THEN Branch INSULIN) TAKE 10 100 unit/mL UNITS AT injection NIGHT fluticasone 2018-03 2020- No [id number] 1{puff} Inhale 1 Univers furoate-fitz 2-20 02-18 Puff ity of anterol 00:00: 00:00 daily. [place] (BREO 00 :00 Medical ELLIPTA) Branch 100-25 mcg/dose DsDv predniSONE 2018-03- No [id number] 10mg Take 0.5 [facility] 20 mg 2-20 01-17 tablets by ity of tablet 00:00: 00:00 mouth [place] 00 :00 daily. Medical Branch LEVOTHYROXI 2018-03 2020- No [id number] 137ug TAKE 1 [facility] NE 137 mcg 2-19 03-18 TABLET BY ity of tablet 00:00: 00:00 MOUTH [place] 00 :00 EVERY Medical MORNING Branch FUROSEMIDE 2018-03 2020- No [id number] 40mg TAKE 1 [facility] 40 mg 2-19 03-17 TABLET BY ity of tablet 00:00: 00:00 MOUTH [place] 00 :00 EVERY Medical MORNING Branch Insulin 2018-03 2020- No [id number] 5U inject 5 U nivers Lispro, 2-16 01-10 Units ity of Human, 100 00:00: 00:00 [place] unit/mL 00 :00 skin 3 Medical cartridge (three) Branch times daily with meals for 30 days. Polyethylen 2018-03 2020- No [id number] 17g Take 1 Univers e Glycol 2-15 02-19 Packet by ity o f 3350 17 00:00: 00:00 mouth [place] gram powder 00 :00 daily. Medica l Branch Insulin 2018-03 2020- No [id number] Use as Un renetta Maybell, 2-14 10-20 directed ity of Disposable, 00:00: 00:00 Jas 32 gauge x 00 :00 Medical 5/16" Ndle Branch sodium 2019- Yes [id number] 4mL Inhale 4 Un renetta chloride 7% 1-22 mL 2 (two) it y of nebulizer 00:00: times [place] solution 00 daily. Medical Branch sodium 2019- Yes [id number] 4mL Inhale 4 Un renetta chloride 7% 1-22 mL 2 (two) it y of nebulizer 00:00: times [place] solution 00 daily. Medical Branch sodium 2019- Yes [id number] 4mL Inhale 4 Un renetta chloride 7% 1-22 mL 2 (two) it y of nebulizer 00:00: times [place] solution 00 daily. Medical Branch sodium 2019- Yes [id number] 4mL Inhale 4 Un renetta chloride 7% 1-22 mL 2 (two) it y of nebulizer 00:00: times [place] solution 00 daily. Medical Branch sodium 2019- Yes [id number] 4mL Inhale 4 Un renetta chloride 7% 1-22 mL 2 (two) it y of nebulizer 00:00: times [place] solution 00 daily. Medical Branch sodium 2019- Yes [id number] 4mL Inhale 4 Un renetta chloride 7% 1-22 mL 2 (two) it y of nebulizer 00:00: times [place] solution 00 daily. Medical Branch sodium 2019- Yes [id number] 4mL Inhale 4 Un renetta chloride 7% 1-22 mL 2 (two) it y of nebulizer 00:00: times [place] solution 00 daily. Medical Branch sodium 2019- Yes [id number] 4mL Inhale 4 Un renetta chloride 7% 1-22 mL 2 (two) it y of nebulizer 00:00: times [place] solution 00 daily. Medical Branch sodium 2019- Yes [id number] 4mL Inhale 4 Un renetta chloride 7% 1-22 mL 2 (two) it y of nebulizer 00:00: times [place] solution 00 daily. Medical Branch sodium 2019- Yes [id number] 4mL Inhale 4 Un renetta chloride 7% 1-22 mL 2 (two) it y of nebulizer 00:00: times [place] solution 00 daily. Medical Branch sodium 2019- Yes [id number] 4mL Inhale 4 Un renetta chloride 7% 1-22 mL 2 (two) it y of nebulizer 00:00: times [place] solution 00 daily. Medical Branch sodium 2018- Yes [id number] 4mL Inhale 4 Un renetta chloride 7% 1-22 mL 2 (two) it y of nebulizer 00:00: times [place] solution 00 daily. Medical Branch sodium 2018- Yes [id number] 4mL Inhale 4 Un renetta chloride 7% 1-22 mL 2 (two) it y of nebulizer 00:00: times [place] solution 00 daily. Medical Branch sodium 2018- Yes [id number] 4mL Inhale 4 Un renetta chloride 7% 1-22 mL 2 (two) it y of nebulizer 00:00: times [place] solution 00 daily. Medical Branch sodium 2018- Yes [id number] 4mL Inhale 4 Un renetta chloride 7% 1-22 mL 2 (two) it y of nebulizer 00:00: times [place] solution 00 daily. Medical Branch sodium 2018- Yes [id number] 4mL Inhale 4 Un renetta chloride 7% 1-22 mL 2 (two) it y of nebulizer 00:00: times [place] solution 00 daily. Medical Branch sodium 2018- Yes [id number] 4mL Inhale 4 Un renetta chloride 7% 1-22 mL 2 (two) it y of nebulizer 00:00: times [place] solution 00 daily. Medical Branch sodium 2018- Yes [id number] 4mL Inhale 4 Un renetta chloride 7% 1-22 mL 2 (two) it y of nebulizer 00:00: times [place] solution 00 daily. Medical Branch sodium 2018- Yes [id number] 4mL Inhale 4 Un renetta chloride 7% 1-22 mL 2 (two) it y of nebulizer 00:00: times [place] solution 00 daily. Medical Branch sodium 2018- Yes [id number] 4mL Inhale 4 Un renetta chloride 7% 1-22 mL 2 (two) it y of nebulizer 00:00: times [place] solution 00 daily. Medical Branch sodium 2018-2021- No [id number] 4mL Inhale 4 U nivers chloride 7% 1-22 10-05 mL 2 (two) i ty of nebulizer 00:00: 00:00 times [place] solution 00 :00 daily. Medical Branch sodium 2018-2021- No [id number] 4mL Inhale 4 U nivers chloride 7% 1-22 10-05 mL 2 (two) i ty of nebulizer 00:00: 00:00 times [place] solution 00 :00 daily. [facility] sodium 2018-03- No [id number] 4mL Inhale 4 U nivers chloride 7% 1-22 10-05 mL 2 (two) i ty of nebulizer 00:00: 00:00 times [place] solution 00 :00 daily. [facility] sodium 2018-03- No [id number] 4mL Inhale 4 U nivers chloride 7% 1-22 10-05 mL 2 (two) i ty of nebulizer 00:00: 00:00 times [place] solution 00 :00 daily. [facility] sodium 2018-03- No [id number] 4mL Inhale 4 U nivers chloride 7% 1-22 10-05 mL 2 (two) i ty of nebulizer 00:00: 00:00 times [place] solution 00 :00 daily. [facility] sodium 2018-03- No [id number] 4mL Inhale 4 U nivers chloride 7% 1-22 10-05 mL 2 (two) i ty of nebulizer 00:00: 00:00 times [place] solution 00 :00 daily. [facility] sodium 2018-03- No [id number] 4mL Inhale 4 U nivers chloride 7% 1-22 10-05 mL 2 (two) i ty of nebulizer 00:00: 00:00 times [place] solution 00 :00 daily. [facility] albuterol 2018-03- No [id number] 2.5mg Inhale 3 Univers 2.5 mg /3 - 12-03 mL every 4 ity of mL (0.083 00:00: 00:00 (four) [place] %) 00 :00 hours as Medical nebulizer needed for Bran ch solution Wheezing or Shortness of Breath. albuterol 2018-03- No [id number] 2.5mg Inhale 3 Univers 2.5 mg /3 -22 12-03 mL every 4 ity of mL (0.083 00:00: 00:00 (four) [place] %) 00 :00 hours as Medical nebulizer needed for Bran ch solution Wheezing or Shortness of Breath. albuterol 2018-03- No [id number] 2.5mg Inhale 3 Univers 2.5 mg /3 -22 12-03 mL every 4 ity of mL (0.083 00:00: 00:00 (four) [place] %) 00 :00 hours as Medical nebulizer needed for Bran ch solution Wheezing or Shortness of Breath. albuterol 2018-03- No [id number] 2.5mg Inhale 3 Univers 2.5 mg /3 03-25 12-03 mL every 4 ity of mL (0.083 00:00: 00:00 (four) [place] %) 00 :00 hours as Medical nebulizer needed for Bran ch solution Wheezing or Shortness of Breath. fluticasone 2018-03- No [id number] 1{spray Use 1 [facility] propionate 03-25 } [place] in ity of 50 00:00: 00:00 each [place] mcg/actuati 00 :00 nostril 2 Med ical on nasal (two) Branch spray times daily. cetirizine 2018-03- No [id number] 10mg Take 1 [facility] 10 mg 03-25 tablet by ity of tablet 00:00: 00:00 mouth [place] 00 :00 daily. Medical Branch ipratropium 2018-03- No [id number] .5mg Inhale 2.5 [facility] 0.02 % 03-25 [...] Memoria 1-16 (Same as: l 15:00: Colace) [place] 00 (Do Not Crush) Docusate 2018-03 No [...] sodium, 1-16 porcine l porcine 06:00: heparin [place] 2500 UNT/ML 00 Injectable Solution heparin 2018-03 No Notes: [facility] sodium, 1-16 porcine l porcine 06:00: heparin [place] 2500 UNT/ML 00 Injectable Solution heparin 2018-03 No Notes: [facility] sodium, 1-16 porcine l porcine 06:00: heparin [place] 2500 UNT/ML 00 Injectable Solution heparin 2018-03 No Notes: [facility] sodium, 1-16 porcine l porcine 06:00: heparin [place] 2500 UNT/ML 00 Injectable Solution heparin 2018-03 No Notes: [place] sodium, 1-16 porcine l porcine 06:00: heparin [place] 2500 UNT/ML 00 Injectable Solution heparin 2018-03 No Notes: [place] sodium, 1-16 porcine l porcine 06:00: heparin [place] 2500 UNT/ML 00 Injectable Solution heparin 2018-03 No Notes: [facility] sodium, 1-16 porcine l porcine 06:00: heparin [place] 2500 UNT/ML 00 Injectable Solution heparin 2018-03 No Notes: [place] sodium, 1-16 porcine l porcine 06:00: heparin [place] 2500 UNT/ML 00 Injectable Solution heparin 2018-03 No Notes: [place] sodium, 1-16 porcine l porcine 06:00: heparin [place] 2500 UNT/ML 00 Injectable Solution heparin 2018-03 No Notes: [place] sodium, 1-16 porcine l porcine 06:00: heparin [place] 2500 UNT/ML 00 Injectable Solution heparin 2018-03 No Notes: [place] sodium, 1-16 porcine l porcine 06:00: heparin [place] 2500 UNT/ML 00 Injectable Solution methylPREDN 2018-03 No Notes: [place] dilcia ISolone 1-16 (Same l SODium 03:00: as:Solu-ME [place] nn SUCCinate 00 DROL, A-Methapre d) sennosides, 2018-03 No Notes: [place] dilcia FPC 1-16 (Same as: l 03:00: Senokot) [place] Azithromyci 2018-03 No Notes: [place] dilcia n 1-16 (Same As: l 03:00: Zithromax [place] 00 IV) methylPREDN 2018-03 No Notes: [place] dilcia ISolone 1-16 (Same l SODium 03:00: as:Solu-ME [place] nn SUCCinate 00 DROL, A-Methapre d) sennosides, 2018-03 No Notes: [place] dilcia FPC 1-16 (Same as: l 03:00: Senokot) [place] Azithromyci 2018-03 No Notes: [place] dilcia n 1-16 (Same As: l 03:00: Zithromax [place] 00 IV) methylPREDN 2018-03 No Notes: [place] dilcia ISolone 1-16 (Same l SODium 03:00: as:Solu-ME [place] nn SUCCinate 00 DROL, A-Methapre d) sennosides, 2018-03 No Notes: [place] dilcia FPC 1-16 (Same as: l 03:00: Senokot) [place] Azithromyci 2018-03 No Notes: [place] dilcia n 1-16 (Same As: l 03:00: Zithromax [place] 00 IV) methylPREDN 2018-03 No Notes: [place] dilcia ISolone 1-16 (Same l SODium 03:00: as:Solu-ME [place] nn SUCCinate 00 DROL, A-Methapre d) sennosides, 2018-03 No Notes: [place] dilcia FPC 1-16 (Same as: l 03:00: Senokot) [place] Azithromyci 2018-03 No Notes: [place] dilcia n 1-16 (Same As: l 03:00: Zithromax [place] 00 IV) methylPREDN 2018-03 No Notes: [place] dilcia ISolone 1-16 (Same l SODium 03:00: as:Solu-ME [place] nn SUCCinate 00 DROL, A-Methapre d) sennosides, 2018-03 No Notes: [place] dilcia FPC 1-16 (Same as: l 03:00: Senokot) [place] Azithromyci 2018-03 No Notes: [place] dilcia n 1-16 (Same As: l 03:00: Zithromax [place] 00 IV) methylPREDN 2018-03 No Notes: [place] dilcia ISolone 1-16 (Same l SODium 03:00: as:Solu-ME [place] nn SUCCinate 00 DROL, A-Methapre d) sennosides, 2018-03 No Notes: [place] dilcia FPC 1-16 (Same as: l 03:00: Senokot) [place] ithromyci 2018-03 No Notes: [place] dilcia n 1-16 (Same As: l 03:00: Zithromax [place] 00 IV) methylPREDN 2018-03 No Notes: Randell dilcia ISolone 1-16 (Same l SODium 03:00: as:Solu-ME Jeimy nn SUCCinate 00 DROL, A-Methapre d) sennosides, 2018-03 No Notes: Randell dilcia FPC 1-16 (Same as: l 03:00: Senokot) [place] Azithromyci 2018-03 No Notes: Randell dilcia n 1-16 (Same As: l 03:00: Zithromax [place] 00 IV) methylPREDN 2018-03 No Notes: Randell dilcia ISolone 1-16 (Same l SODium 03:00: as:Solu-ME Jeimy nn SUCCinate 00 DROL, A-Methapre d) sennosides, 2018-03 No Notes: Randell dilcia FPC 1-16 (Same as: l 03:00: Senokot) [place] ithromyci 2018-03 No Notes: Randell dilcia n 1-16 (Same As: l 03:00: Zithromax [place] 00 IV) methylPREDN 2018-03 No Notes: Randell dilcia ISolone 1-16 (Same l SODium 03:00: as:Solu-ME Jeimy nn SUCCinate 00 DROL, A-Methapre d) sennosides, 2018-03 No Notes: Randell dilcia FPC 1-16 (Same as: l 03:00: Senokot) [place] 00 Azithromyci 2018-03 No Notes: Randell dilcia n 1-16 (Same As: l 03:00: Zithromax [place] 00 IV) methylPREDN 2018-03 No Notes: Randell dilcia ISolone 1-16 (Same l SODium 03:00: as:Solu-ME Jeimy nn SUCCinate 00 DROL, A-Methapre d) sennosides, 2018-03 No Notes: Randell dilcia FPC 1-16 (Same as: l 03:00: Senokot) [place] Azithromyci 2018-03 No Notes: Randell dilcia n 1-16 (Same As: l 03:00: Zithromax [place] 00 IV) methylPREDN 2018-03 No Notes: Randell dilcia ISolone 1-16 (Same l SODium 03:00: as:Solu-ME Jeimy nn SUCCinate 00 DROL, A-Methapre d) sennosides, 2018-03 No Notes: Randell dilcia FPC 1-16 (Same as: l 03:00: Senokot) [place] Azithromyci 2018-03 No Notes: Randell dilcia n 1-16 (Same As: l 03:00: Zithromax [place] 00 IV) Budesonide 2018-03 No Notes: Memor ia 1-16 (Same As: l 02:39: Pulmicort) [place] Budesonide 2018-03 No Notes: Memor ia 1-16 (Same As: l 02:39: Pulmicort) [place] 00 Budesonide 2018-03 No Notes: Memor ia 1-16 (Same As: l 02:39: Pulmicort) [place] Budesonide 2018-03 No Notes: Memor ia 1-16 (Same As: l 02:39: Pulmicort) [place] Budesonide 2018-03 No Notes: Memor ia 1-16 (Same As: l 02:39: Pulmicort) [place] Budesonide 2018-03 No Notes: Memor ia 1-16 (Same As: l 02:39: Pulmicort) [place] Budesonide 2018-03 No Notes: Memor ia 1-16 (Same As: l 02:39: Pulmicort) [place] Budesonide 2018-03 No Notes: Memor ia 1-16 (Same As: l 02:39: Pulmicort) Rolanod Budesonide 2018-03 No Notes: Memor ia 1-16 (Same As: l 02:39: Pulmicort) [place] Budesonide 2018-03 No Notes: Memor ia 1-16 (Same As: l 02:39: Pulmicort) [place] Budesonide 2018-03 No Notes: Memor ia 1-16 (Same As: l 02:39: Pulmicort) [place] influenza 2018-03 No Notes: Memori a virus [...] tab, PO, l tablet 01:31: Daily, 0 [place] 00 Refill(s) Albuterol 2018-03 Yes 2.5 mg [...] tab, PO, l tablet 01:31: Daily, 0 [place] 00 Refill(s) Albuterol 2018-03 Yes 2.5 mg = 3 Me moria 0.83 MG/ML 1-16 mL, NEB, l Inhalant 01:31: Q6H, PRN Jeimy nn Solution 00 as needed for wheezing, 0 Refill(s) Furosemide 2018-03 Yes 40 mg = 1 Me moria 40 MG Oral 1-16 tab, PO, l Tablet 01:31: Daily, 0 [place] [Lasix] 00 Refill(s) amLODIPine 2018-03 Yes 5 mg = 1 Mem oria 5 mg oral 1-16 tab, PO, l tablet 01:31: Daily, 0 [place] 00 Refill(s) Albuterol 2018-03 Yes 2.5 mg = 3 Me moria 0.83 MG/ML 1-16 mL, NEB, l Inhalant 01:31: Q6H, PRN Jeimy nn Solution 00 as needed for wheezing, 0 Refill(s) Furosemide 2018-03 Yes 40 mg = 1 Me moria 40 MG Oral 1-16 tab, PO, l Tablet 01:31: Daily, 0 [place] [Lasix] 00 Refill(s) amLODIPine 2018-03 Yes 5 mg = 1 Mem oria 5 mg oral 1-16 tab, PO, l tablet 01:31: Daily, 0 [place] 00 Refill(s) Albuterol 2018-03 Yes 2.5 mg [...] tab, PO, l tablet 01:31: Daily, 0 [place] 00 Refill(s) Albuterol 2018-03 Yes 2.5 mg = 3 Me moria 0.83 MG/ML 1-16 mL, NEB, l Inhalant 01:31: Q6H, PRN Jeimy nn Solution 00 as needed for wheezing, 0 Refill(s) Furosemide 2018-03 Yes 40 mg = 1 Me moria 40 MG Oral 1-16 tab, PO, l Tablet 01:31: Daily, 0 [place] [Lasix] 00 Refill(s) amLODIPine 2018-03 Yes 5 [...] tab, PO, l tablet 01:31: Daily, 0 [place] 00 Refill(s) Albuterol 2018-03 Yes 2.5 mg [...] tab, PO, l Tablet 01:31: Daily, 0 [place] [Lasix] 00 Refill(s) amLODIPine 2018-03 Yes 5 [...] Syringe 1-16 25 mL, l 01:03: Route: [place] 00 IVP, Drug Form: INJ, Dosing Weight 93.636, kg, PRN, PRN Blood Glucose Results, Start date: 01/16/19 19:03:00 TRAIN OPERATIONS SUPERVISOR, Duration: 30 day, Stop date: 02/15/19 19:02:00 TRAIN OPERATIONS SUPERVISOR, 0 Glucagon 2018- No 1 mg, Memoria 1-16 Route: IM, l 01:03: Drug form: [place] 00 PDR/INJ, PRN, Dosing Weight 93.636, kg, PRN Blood Glucose Results, Start date: 01/16/19 19:03:00 TRAIN OPERATIONS SUPERVISOR, Duration: 30 day, Stop date: 02/15/19 19:02:00 TRAIN OPERATIONS SUPERVISOR, 0 Insulin 2018- No Notes: [facility] Lispro 1-16 (Same as: l 01:03: Humalog) [place] 00 Roll in palms of hands gently; [...] Blood Glucose Results, Start date: 01/16/19 19:03:00 TRAIN OPERATIONS SUPERVISOR, Duration: 30 day, Stop date: 02/15/19 19:02:00 TRAIN OPERATIONS SUPERVISOR, 0 Glucagon 2018- No 1 mg, Mem[facility] 1-16 Route: IM, l 01:03: Drug form: [place] 00 PDR/INJ, PRN, Dosing Weight 93.636, kg, PRN Blood Glucose Results, Start date: 01/16/19 19:03:00 TRAIN OPERATIONS SUPERVISOR, Duration: 30 day, Stop date: 02/15/19 19:02:00 TRAIN OPERATIONS SUPERVISOR, 0 Insulin 2018- No Notes: [facility] Lispro 1-16 (Same as: l 01:03: Humalog) [place] 00 Roll in palms of hands gently; Do not shake vigorously . WASTE: F/P - Black; E - Municipal Trash Bin Stable for 28 days at room temperatur e. Expires in days from ____Date Dextrose 2018- No 12.5 gm, Mem[facility] ia 50% Syringe 1-16 25 mL, l 01:03: Route: [place] 00 IVP, Drug Form: INJ, Dosing Weight 93.636, kg, PRN, PRN Blood Glucose Results, Start date: 01/16/19 19:03:00 TRAIN OPERATIONS SUPERVISOR, Duration: 30 day, Stop date: 02/15/19 19:02:00 TRAIN OPERATIONS SUPERVISOR, 0 Glucagon 2018- No 1 mg, Mem[facility] 1-16 Route: IM, l 01:03: Drug form: [place] 00 PDR/INJ, PRN, Dosing Weight 93.636, kg, PRN Blood Glucose Results, Start date: 01/16/19 19:03:00 TRAIN OPERATIONS SUPERVISOR, Duration: 30 day, Stop date: 02/15/19 19:02:00 TRAIN OPERATIONS SUPERVISOR, 0 Insulin 2018- No Notes: [facility] Lispro [...] Blood Glucose Results, Start date: 01/16/19 19:03:00 TRAIN OPERATIONS SUPERVISOR, Duration: 30 day, Stop date: 02/15/19 19:02:00 TRAIN OPERATIONS SUPERVISOR, 0 Glucagon 2018- No 1 mg, Mem[facility] 1-16 Route: IM, l 01:03: Drug form: [place] 00 PDR/INJ, PRN, Dosing Weight 93.636, kg, PRN Blood Glucose Results, Start date: 01/16/19 19:03:00 TRAIN OPERATIONS SUPERVISOR, Duration: 30 day, Stop date: 02/15/19 19:02:00 TRAIN OPERATIONS SUPERVISOR, 0 Insulin 2019- No Notes: [facility] Lispro 1-16 (Same as: l 01:03: Humalog) [place] 00 Roll in palms of hands gently; Do not shake vigorously . WASTE: F/P - Black; E - Municipal Trash Bin Stable for 28 days at room temperatur e. Expires in days from ____Date Dextrose 2018- No 12.5 gm, Mem[facility] 50% Syringe 1-16 25 mL, l 01:03: Route: [place] 00 IVP, Drug Form: INJ, Dosing Weight 93.636, kg, PRN, PRN Blood Glucose Results, Start date: 01/16/19 19:03:00 TRAIN OPERATIONS SUPERVISOR, Duration: 30 day, Stop date: 02/15/19 19:02:00 TRAIN OPERATIONS SUPERVISOR, 0 Glucagon 2018- No 1 mg, Mem[facility] 1-16 Route: IM, l 01:03: Drug form: [place] 00 PDR/INJ, PRN, Dosing Weight 93.636, kg, PRN Blood Glucose Results, Start date: 01/16/19 19:03:00 TRAIN OPERATIONS SUPERVISOR, Duration: 30 day, Stop date: 02/15/19 19:02:00 TRAIN OPERATIONS SUPERVISOR, 0 Insulin 2018- No Notes: [facility] Lispro 1-16 (Same as: l :03: Humalog) [place] 00 Roll in palms of hands gently; Do not shake vigorously . WASTE: F/P - Black; E - Municipal Trash Bin Stable for 28 days at room temperatur e. Expires in days from ____Date Dextrose 2018-03 No 12.5 gm, Memor ia 50% Syringe 1-16 25 mL, l 01:03: Route: [place] 00 IVP, Drug Form: INJ, Dosing Weight 93.636, kg, PRN, PRN Blood Glucose Results, Start date: 01/16/19 19:03:00 TRAIN OPERATIONS SUPERVISOR, Duration: 30 day, Stop date: 02/15/19 19:02:00 TRAIN OPERATIONS SUPERVISOR, 0 Glucagon 2018-03 No 1 mg, Memoria 1-16 Route: IM, l 01:03: Drug form: [place] 00 PDR/INJ, PRN, Dosing Weight 93.636, kg, PRN Blood Glucose Results, Start date: 01/16/19 19:03:00 TRAIN OPERATIONS SUPERVISOR, Duration: 30 day, Stop date: 02/15/19 19:02:00 TRAIN OPERATIONS SUPERVISOR, 0 Insulin 2019- No Notes: [facility] Lispro [...] Blood Glucose Results, Start date: 01/16/19 19:03:00 TRAIN OPERATIONS SUPERVISOR, Duration: 30 day, Stop date: 02/15/19 19:02:00 TRAIN OPERATIONS SUPERVISOR, 0 Glucagon 2018-03 No 1 mg, Mem[facility] 1-16 Route: IM, l 01:03: Drug form: [place] 00 PDR/INJ, PRN, Dosing Weight 93.636, kg, PRN Blood Glucose Results, Start date: 01/16/19 19:03:00 TRAIN OPERATIONS SUPERVISOR, Duration: 30 day, Stop date: 02/15/19 19:02:00 TRAIN OPERATIONS SUPERVISOR, 0 Insulin 2018- No Notes: [facility] Lispro 1-16 (Same as: l 01:03: Humalog) [place] 00 Roll in palms of hands gently; Do not shake vigorously . WASTE: F/P - Black; E - Municipal Trash Bin Stable for 28 days at room temperatur e. Expires in days from ____Date Dextrose 2018-03 No 12.5 gm, Memor ia 50% Syringe 1-16 25 mL, l 01:03: Route: [place] 00 IVP, Drug Form: INJ, Dosing Weight 93.636, kg, PRN, PRN Blood Glucose Results, Start date: 01/16/19 19:03:00 TRAIN OPERATIONS SUPERVISOR, Duration: 30 day, Stop date: 02/15/19 19:02:00 TRAIN OPERATIONS SUPERVISOR, 0 Glucagon 2018-03 No 1 mg, Mem[facility] 1-16 Route: IM, l 01:03: Drug form: [place] 00 PDR/INJ, PRN, Dosing Weight 93.636, kg, PRN Blood Glucose Results, Start date: 01/16/19 19:03:00 TRAIN OPERATIONS SUPERVISOR, Duration: 30 day, Stop date: 02/15/19 19:02:00 TRAIN OPERATIONS SUPERVISOR, 0 Insulin 2018-03 No Notes: [facility] Lispro 1-16 (Same as: l 01:03: Humalog) [place] 00 Roll in palms of hands gently; Do not shake vigorously . WASTE: F/P - Black; E - Municipal Trash Bin Stable for 28 days at room temperatur e. Expires in days from ____Date Dextrose 2018-03 No 12.5 gm, Mem[facility] ia 50% Syringe 1-16 25 mL, l 01:03: Route: [place] 00 IVP, Drug Form: INJ, Dosing Weight 93.636, kg, PRN, PRN Blood Glucose Results, Start date: 01/16/19 19:03:00 TRAIN OPERATIONS SUPERVISOR, Duration: 30 day, Stop date: 02/15/19 19:02:00 TRAIN OPERATIONS SUPERVISOR, 0 Glucagon 2018-03 No 1 mg, Mem[facility] 1-16 Route: IM, l 01:03: Drug form: [place] 00 PDR/INJ, PRN, Dosing Weight 93.636, kg, PRN Blood Glucose Results, Start date: 01/16/19 19:03:00 TRAIN OPERATIONS SUPERVISOR, Duration: 30 day, Stop date: 02/15/19 19:02:00 TRAIN OPERATIONS SUPERVISOR, 0 Insulin 2018-03 No Notes: [facility] Lispro 1-16 (Same as: l 01:03: Humalog) [place] 00 Roll in palms of hands gently; Do not shake vigorously . WASTE: F/P - Black; E - Municipal Trash Bin Stable for 28 days at room temperatur e. Expires in days from ____Date Dextrose 2018-03 No 12.5 gm, Memor ia 50% Syringe 1-16 25 mL, l 01:03: Route: [place] 00 IVP, Drug Form: INJ, Dosing Weight 93.636, kg, PRN, PRN Blood Glucose Results, Start date: 01/16/19 19:03:00 TRAIN OPERATIONS SUPERVISOR, Duration: 30 day, Stop date: 02/15/19 19:02:00 TRAIN OPERATIONS SUPERVISOR, 0 Glucagon 2018- No 1 mg, [facility] 1-16 Route: IM, l 01:03: Drug form: [place] 00 PDR/INJ, PRN, Dosing Weight 93.636, kg, PRN Blood Glucose Results, Start date: 01/16/19 19:03:00 TRAIN OPERATIONS SUPERVISOR, Duration: 30 day, Stop date: 02/15/19 19:02:00 TRAIN OPERATIONS SUPERVISOR, 0 Insulin 2018- No Notes: [facility] Lispro 1-16 (Same as: l 01:03: Humalog) [place] 00 Roll in palms of hands gently; [...] Blood Glucose Results, Start date: 01/16/19 19:03:00 TRAIN OPERATIONS SUPERVISOR, Duration: 30 day, Stop date: 02/15/19 19:02:00 TRAIN OPERATIONS SUPERVISOR, 0 Glucagon 2018-03 No 1 mg, [facility] 1-16 Route: IM, l 01:03: Drug form: [place] 00 PDR/INJ, PRN, Dosing Weight 93.636, kg, PRN Blood Glucose Results, Start date: 01/16/19 19:03:00 TRAIN OPERATIONS SUPERVISOR, Duration: 30 day, Stop date: 02/15/19 19:02:00 TRAIN OPERATIONS SUPERVISOR, 0 Insulin 2018- No Notes: [facility] Lispro 1-16 (Same as: l :03: Humalog) [place] 00 Roll in palms of hands gently; Do not shake vigorously . WASTE: F/P - Black; E - Municipal Trash Bin Stable for 28 days at room temperatur e. Expires in days from ____Date Hydralazine 2018-03 No Notes: Randell dilcia 1-16 (Same as: l 01:01: Apresoline [place] 00 ) Push over 5 minutes Hydralazine [...] dilcia 1-16 (Same as: l 01:01: Apresoline [place] 00 ) Push over 5 minutes Hydralazine 2018-03 No Notes: Randell dilcia 1-16 (Same as: l 01:01: Apresoline [place] 00 ) Push over 5 minutes Hydralazine 2018-03 No Notes: Randell dilcia 1-16 (Same as: l 01:01: Apresoline [place] 00 ) Push over 5 minutes Hydralazine 2018-03 No Notes: Randell dilcia 1-16 (Same as: l 01:01: Apresoline [place] 00 ) Push over 5 minutes Hydralazine 2018-03 No Notes: Randell dilcia 1-16 (Same as: l 01:01: Apresoline [place] 00 ) Push over 5 minutes Hydralazine 2018-03 No Notes: Randell dilcia 1-16 (Same as: l 01:01: Apresoline [place] 00 ) Push over 5 minutes Hydralazine 2018-03 No Notes: Randell dilcia 1-16 (Same as: l 01:01: Apresoline [place] 00 ) Push over 5 minutes Albuterol 2018-03 No Notes: Memori a 0.833 MG/ML 1-16 (Same as: :00: Duoneb) [place] Ipratropium 00 Bowie 0.167 MG/ML Inhalant Solution Albuterol 2018-03 No Notes: Memori a 0.833 MG/ML 1-16 (Same as: l :00: Duoneb) [place] Ipratropium 00 Bowie 0.167 MG/ML Inhalant Solution Albuterol 2018-03 No Notes: Memori a 0.833 MG/ML 1-16 (Same as: :: Duoneb) [place] Ipratropium 00 Bowie 0.167 MG/ML Inhalant Solution Albuterol 2018-03 No Notes: Memori a 0.833 MG/ML 1-16 (Same as: :00: Duoneb) [place] Ipratropium 00 Bowie 0.167 MG/ML Inhalant Solution Albuterol 2018-03 No Notes: Memori a 0.833 MG/ML 1-16 (Same as: :: Duoneb) [place] Ipratropium 00 [place] 0.167 MG/ML Inhalant Solution Albuterol 2018-03 No Notes: Memori a 0.833 MG/ML 1-16 (Same as: :: Duoneb) [place] Ipratropium 00 Bowie 0.167 MG/ML Inhalant Solution Albuterol 2018-03 No Notes: Memori a 0.833 MG/ML 1-16 (Same as: :00: Duoneb) [place] Ipratropium 00 Bowie 0.167 MG/ML Inhalant Solution Albuterol 2018-03 No Notes: Memori a 0.833 MG/ML 1-16 (Same as: :: Duoneb) [place] Ipratropium 00 [place]ie 0.167 MG/ML Inhalant Solution Albuterol 2018-03 No Notes: Memori a 0.833 MG/ML 1-16 (Same as: :: Duoneb) [place] Ipratropium 00 [place]ie 0.167 MG/ML Inhalant Solution Albuterol 2018-03 No Notes: Memori a 0.833 MG/ML 1-16 (Same as: :00: Duoneb) [place] Ipratropium 00 Bowie 0.167 MG/ML Inhalant Solution Albuterol 2018-03 No Notes: Memori a 0.833 MG/ML 1-16 (Same as: :00: Duoneb) [place] Ipratropium 00 [place]ie 0.167 MG/ML Inhalant Solution Dextrose 2018-03 No 12.5 gm, Memor ia 50% Syringe 1-16 25 mL, l 00:56: Route: [place] 00 IVP, Drug Form: INJ, Dosing Weight 93.636, kg, PRN, PRN Blood Glucose Results, Start date: 01/16/19 18:56:00 TRAIN OPERATIONS SUPERVISOR, Duration: 30 day, Stop date: 02/15/19 18:55:00 TRAIN OPERATIONS SUPERVISOR, 0 Glucagon 2018- No 1 mg, [facility] 1-16 Route: IM, l 00:56: Drug form: [place] 00 PDR/INJ, PRN, Dosing Weight 93.636, kg, PRN Blood Glucose Results, Start date: 01/16/19 18:56:00 TRAIN OPERATIONS SUPERVISOR, Duration: 30 day, Stop date: 02/15/19 18:55:00 TRAIN OPERATIONS SUPERVISOR, 0 Acetaminoph 2018-03 No Notes: Do M emoria en -16 not exceed l 00:56: 4 gm/day. Rolando (Same as: Tylenol) Dextrose 2018-03 No 12.5 gm, Memor ia 50% Syringe 1-16 25 mL, l 00:56: Route: [place] 00 IVP, Drug Form: INJ, Dosing Weight 93.636, kg, PRN, PRN Blood Glucose Results, Start date: 01/16/19 18:56:00 TRAIN OPERATIONS SUPERVISOR, Duration: 30 day, Stop date: 02/15/19 18:55:00 TRAIN OPERATIONS SUPERVISOR, 0 Glucagon 2018-03 No 1 mg, [facility] 1-16 Route: IM, l 00:56: Drug form: [place] 00 PDR/INJ, PRN, Dosing Weight 93.636, kg, PRN Blood Glucose Results, Start date: 01/16/19 18:56:00 TRAIN OPERATIONS SUPERVISOR, Duration: 30 day, Stop date: 02/15/19 18:55:00 TRAIN OPERATIONS SUPERVISOR, 0 Acetaminoph 2018- No Notes: Do M emoria en -16 not exceed l 00:56: 4 gm/day. [place] (Same as: Tylenol) Dextrose 2018-03 No 12.5 gm, Mem[facility] ia 50% Syringe 1-16 25 mL, l 00:56: Route: [place] 00 IVP, Drug Form: INJ, Dosing Weight 93.636, kg, PRN, PRN Blood Glucose Results, Start date: 01/16/19 18:56:00 TRAIN OPERATIONS SUPERVISOR, Duration: 30 day, Stop date: 02/15/19 18:55:00 TRAIN OPERATIONS SUPERVISOR, 0 Glucagon 2018-03 No 1 mg, [facility] 1-16 Route: IM, l 00:56: Drug form: [place] 00 PDR/INJ, PRN, Dosing Weight 93.636, kg, PRN Blood Glucose Results, Start date: 01/16/19 18:56:00 TRAIN OPERATIONS SUPERVISOR, Duration: 30 day, Stop date: 02/15/19 18:55:00 TRAIN OPERATIONS SUPERVISOR, 0 Acetaminoph 2018-03 No Notes: Do Loly emoria en 03-19 not exceed l 00:56: 4 gm/day. [place] (Same as: Tylenol) Dextrose 2018-03 No 12.5 gm, Mem[facility] ia 50% Syringe 1-16 25 mL, l 00:56: Route: [place] 00 IVP, Drug Form: INJ, Dosing Weight 93.636, kg, PRN, PRN Blood Glucose Results, Start date: 01/16/19 18:56:00 TRAIN OPERATIONS SUPERVISOR, Duration: 30 day, Stop date: 02/15/19 18:55:00 TRAIN OPERATIONS SUPERVISOR, 0 Glucagon 2018-03 No 1 mg, [facility] 1-16 Route: IM, l 00:56: Drug form: [place] 00 PDR/INJ, PRN, Dosing Weight 93.636, kg, PRN Blood Glucose Results, Start date: 01/16/19 18:56:00 TRAIN OPERATIONS SUPERVISOR, Duration: 30 day, Stop date: 02/15/19 18:55:00 TRAIN OPERATIONS SUPERVISOR, 0 Acetaminoph 2018-03 No Notes: Do Loly emoria en 03-19 not exceed l 00:56: 4 gm/day. [place] (Same as: Tylenol) Dextrose 2018-03 No 12.5 gm, Mem[facility] ia 50% Syringe 1-16 25 mL, l 00:56: Route: [place] 00 IVP, Drug Form: INJ, Dosing Weight 93.636, kg, PRN, PRN Blood Glucose Results, Start date: 01/16/19 18:56:00 TRAIN OPERATIONS SUPERVISOR, Duration: 30 day, Stop date: 02/15/19 18:55:00 TRAIN OPERATIONS SUPERVISOR, 0 Glucagon 2018-03 No 1 mg, [facility] 1-16 Route: IM, l 00:56: Drug form: [place] 00 PDR/INJ, PRN, Dosing Weight 93.636, kg, PRN Blood Glucose Results, Start date: 01/16/19 18:56:00 TRAIN OPERATIONS SUPERVISOR, Duration: 30 day, Stop date: 02/15/19 18:55:00 TRAIN OPERATIONS SUPERVISOR, 0 Acetaminoph 2018-03 No Notes: Do Loly emoria en 16 not exceed l 00:56: 4 gm/day. [place] 00 (Same as: Tylenol) Dextrose 2018-03 No 12.5 gm, Mem[facility] 50% Syringe 1-16 25 mL, l 00:56: Route: [place] 00 IVP, Drug Form: INJ, Dosing Weight 93.636, kg, PRN, PRN Blood Glucose Results, Start date: 01/16/19 18:56:00 TRAIN OPERATIONS SUPERVISOR, Duration: 30 day, Stop date: 02/15/19 18:55:00 TRAIN OPERATIONS SUPERVISOR, 0 Glucagon 2018- No 1 mg, [facility] 1-16 Route: IM, l 00:56: Drug form: [place] 00 PDR/INJ, PRN, Dosing Weight 93.636, kg, PRN Blood Glucose Results, Start date: 01/16/19 18:56:00 TRAIN OPERATIONS SUPERVISOR, Duration: 30 day, Stop date: 02/15/19 18:55:00 TRAIN OPERATIONS SUPERVISOR, 0 Acetaminoph 2018-03 No Notes: Do Loly emoria en 16 not exceed l 00:56: 4 gm/day. [place] 00 (Same as: Tylenol) Dextrose 2018-03 No 12.5 gm, Mem[facility] 50% Syringe 1-16 25 mL, l 00:56: Route: [place] 00 IVP, Drug Form: INJ, Dosing Weight 93.636, kg, PRN, PRN Blood Glucose Results, Start date: 01/16/19 18:56:00 TRAIN OPERATIONS SUPERVISOR, Duration: 30 day, Stop date: 02/15/19 18:55:00 TRAIN OPERATIONS SUPERVISOR, 0 Glucagon 2018-03 No 1 mg, [facility] 1-16 Route: IM, l 00:56: Drug form: [place] 00 PDR/INJ, PRN, Dosing Weight 93.636, kg, PRN Blood Glucose Results, Start date: 01/16/19 18:56:00 TRAIN OPERATIONS SUPERVISOR, Duration: 30 day, Stop date: 02/15/19 18:55:00 TRAIN OPERATIONS SUPERVISOR, 0 Acetaminoph 2018-03 No Notes: Do M emoria en -16 not exceed l 00:56: 4 gm/day. [place] 00 (Same as: Tylenol) Dextrose 2018-03 No 12.5 gm, Mem[facility] 50% Syringe 1-16 25 mL, l 00:56: Route: [place] 00 IVP, Drug Form: INJ, Dosing Weight 93.636, kg, PRN, PRN Blood Glucose Results, Start date: 01/16/19 18:56:00 TRAIN OPERATIONS SUPERVISOR, Duration: 30 day, Stop date: 02/15/19 18:55:00 TRAIN OPERATIONS SUPERVISOR, 0 Glucagon 2018-03 No 1 mg, Memoria 116 Route: IM, l 00:56: Drug form: [place] 00 PDR/INJ, PRN, Dosing Weight 93.636, kg, PRN Blood Glucose Results, Start date: 01/16/19 18:56:00 TRAIN OPERATIONS SUPERVISOR, Duration: 30 day, Stop date: 02/15/19 18:55:00 TRAIN OPERATIONS SUPERVISOR, 0 Acetaminoph 2018-03 No Notes: Do M emoria en 03-19 not exceed l 00:56: 4 gm/day. [place] 00 (Same as: Tylenol) Dextrose 2018-03 No 12.5 gm, Mem[facility] 50% Syringe 1-16 25 mL, l 00:56: Route: [place] 00 IVP, Drug Form: INJ, Dosing Weight 93.636, kg, PRN, PRN Blood Glucose Results, Start date: 01/16/19 18:56:00 TRAIN OPERATIONS SUPERVISOR, Duration: 30 day, Stop date: 02/15/19 18:55:00 TRAIN OPERATIONS SUPERVISOR, 0 Glucagon 2018-03 No 1 mg, [facility] 1-16 Route: IM, l 00:56: Drug form: [place] 00 PDR/INJ, PRN, Dosing Weight 93.636, kg, PRN Blood Glucose Results, Start date: 01/16/19 18:56:00 TRAIN OPERATIONS SUPERVISOR, Duration: 30 day, Stop date: 02/15/19 18:55:00 TRAIN OPERATIONS SUPERVISOR, 0 Acetaminoph 2018-03 No Notes: Do M emoria en 03-19 not exceed l 00:56: 4 gm/day. [place] (Same as: Tylenol) Dextrose 2018-03 No 12.5 gm, Mem[facility] ia 50% Syringe 1-16 25 mL, l 00:56: Route: [place] 00 IVP, Drug Form: INJ, Dosing Weight 93.636, kg, PRN, PRN Blood Glucose Results, Start date: 01/16/19 18:56:00 TRAIN OPERATIONS SUPERVISOR, Duration: 30 day, Stop date: 02/15/19 18:55:00 TRAIN OPERATIONS SUPERVISOR, 0 Glucagon 2018-03 No 1 mg, [facility] 1-16 Route: IM, l 00:56: Drug form: [place] 00 PDR/INJ, PRN, Dosing Weight 93.636, kg, PRN Blood Glucose Results, Start date: 01/16/19 18:56:00 TRAIN OPERATIONS SUPERVISOR, Duration: 30 day, Stop date: 02/15/19 18:55:00 TRAIN OPERATIONS SUPERVISOR, 0 Acetaminoph 2018-03 No Notes: Do M emoria en -16 not exceed l 00:56: 4 gm/day. [place] 00 (Same as: Tylenol) Dextrose 2018-03 No 12.5 gm, Memor ia 50% Syringe 1-16 25 mL, l 00:56: Route: [place] 00 IVP, Drug Form: INJ, Dosing Weight 93.636, kg, PRN, PRN Blood Glucose Results, Start date: 01/16/19 18:56:00 TRAIN OPERATIONS SUPERVISOR, Duration: 30 day, Stop date: 02/15/19 18:55:00 TRAIN OPERATIONS SUPERVISOR, 0 Glucagon 2018-03 No 1 mg, [facility] 1-16 Route: IM, l 00:56: Drug form: [place] 00 PDR/INJ, PRN, Dosing Weight 93.636, kg, PRN Blood Glucose Results, Start date: 01/16/19 18:56:00 TRAIN OPERATIONS SUPERVISOR, Duration: 30 day, Stop date: 02/15/19 18:55:00 TRAIN OPERATIONS SUPERVISOR, 0 Acetaminoph 2018-03 No Notes: Do M emoria en 1-16 not exceed l 00:56: 4 gm/day. Rolando 00 (Same as: Tylenol) Tramadol 2018-03 No Notes: Not Mem oria 1-16 to exceed l 00:03: 400mg/day. [place] 00 (Same As: Ultram) Tramadol 2018-03 No Notes: Not Mem oria 1-16 to exceed l 00:03: 400mg/day. [place] 00 (Same As: Ultram) Tramadol 2018-03 No Notes: Not Mem oria 1-16 to exceed l 00:03: 400mg/day. Rol[place] 00 (Same As: Ultram) Tramadol 2018-03 No Notes: Not Mem oria 1-16 to exceed l 00:03: 400mg/day. Rolando 00 (Same As: Ultram) Tramadol 2018-03 No Notes: Not Mem oria 1-16 to exceed l 00:03: 400mg/day. [place] 00 (Same As: Ultram) Tramadol 2018-03 No Notes: Not Mem oria 1-16 to exceed l 00:03: 400mg/day. [place] 00 (Same As: Ultram) Tramadol 2018-03 No Notes: Not Mem oria 1-16 to exceed l 00:03: 400mg/day. Rolando 00 (Same As: Ultram) Tramadol 2018-03 No Notes: Not Mem oria 1-16 to exceed l 00:03: 400mg/day. Rolando 00 (Same As: Ultram) Tramadol 2018-03 No Notes: Not Mem oria 1-16 to exceed l 00:03: 400mg/day. [place] 00 (Same As: Ultram) Tramadol 2018-03 No Notes: Not Mem oria 1-16 to exceed l 00:03: 400mg/day. Rolando 00 (Same As: Ultram) Tramadol 2018-03 No Notes: Not Mem oria 1-16 to exceed l 00:03: 400mg/day. [place] 00 (Same As: Ultram) Acetaminoph 2018-03 No Notes: Max Memoria en 1-15 acetaminop l 22:54: hen 4000 [place] 00 mg/day (4 gm/day). (Same as: Tylenol Extra Strength) Acetaminoph 2018-03 No Notes: Max Memoria en 1-15 acetaminop l 22:54: hen 4000 [place] 00 mg/day (4 gm/day). (Same as: Tylenol [...] en 1-15 acetaminop l 22:54: hen 4000 [place] 00 mg/day (4 gm/day). (Same as: Tylenol Extra Strength) Acetaminoph 2018-03 No Notes: Max Memoria en 1-15 acetaminop l 22:54: hen 4000 [place] 00 mg/day (4 gm/day). (Same as: Tylenol Extra Strength) Acetaminoph 2018-03 No Notes: Max Memoria en 1-15 acetaminop l 22:54: hen 4000 [place] 00 mg/day (4 gm/day). (Same as: Tylenol Extra Strength) Acetaminoph 2018-03 No Notes: Max Memoria en 1-15 acetaminop l 22:54: hen 4000 [place] 00 mg/day (4 gm/day). (Same as: Tylenol Extra Strength) Acetaminoph 2018-03 No Notes: Max Memoria en 1-15 acetaminop l 22:54: hen 4000 [place] 00 mg/day (4 gm/day). (Same as: Tylenol [...] l / 21:21: Duoneb) Rolando Ipratropium 00 Bowie 0.167 MG/ML Inhalant Solution Prednisone 2018-03 No Notes: Mem[facility] ia 1-15 Take with l 21:21: food. [place] 00 Albuterol 2018-03 No Notes: Mem[facility] a 0.833 MG/ML 1-15 (Same as: l / 21:21: Duoneb) [place] Ipratropium 00 Bowie 0.167 MG/ML Inhalant Solution Prednisone 2018-03 No Notes: [facility] 1-15 Take with l 21:21: food. [place] 00 Albuterol 2018-03 No Notes: [facility] a 0.833 MG/ML 1-15 (Same as: l / 21:21: Duoneb) [place] Ipratropium 00 Bowie 0.167 MG/ML Inhalant Solution Prednisone 2018-03 No Notes: [facility] 1-15 Take with l 21:21: food. Albuterol 2018-03 No Notes: [facility] a 0.833 MG/ML 1-15 (Same as: l / 21:21: Duoneb) [place] Ipratropium 00 Bowie 0.167 MG/ML Inhalant Solution Prednisone 2018-03 No Notes: [facility] 1-15 Take with l 21:21: food. [place] 00 Albuterol 2018-03 No Notes: [facility] a 0.833 MG/ML 1-15 (Same as: l / 21:21: Duoneb) [place] Ipratropium 00 Bowie 0.167 MG/ML Inhalant Solution Prednisone 2018-03 No Notes: [facility] 1-15 Take with l 21:21: food. Albuterol 2018-03 No Notes: [facility] a 0.833 MG/ML 1-15 (Same as: l / 21:21: Duoneb) [place] Ipratropium 00 Bowie 0.167 MG/ML Inhalant Solution Prednisone 2018-03 No Notes: [facility] 1-15 Take with l 21:21: food. Albuterol 2018-03 No Notes: [facility] a 0.833 MG/ML 1-15 (Same as: l / 21:21: Duoneb) [place] Ipratropium 00 Bowie 0.167 MG/ML Inhalant Solution Prednisone 2018-03 No Notes: [facility] 1-15 Take with l 21:21: food. Albuterol 2018-03 No Notes: [facility] a 0.833 MG/ML 1-15 (Same as: l / 21:21: Duoneb) [place] Ipratropium 00 Bowie 0.167 MG/ML Inhalant Solution Prednisone 2018-03 No Notes: [facility] 1-15 Take with l 21:21: food. Albuterol 2018-03 No Notes: [facility] a 0.833 MG/ML 1-15 (Same as: l / 21:21: Duoneb) [place] Ipratropium 00 Bowie 0.167 MG/ML Inhalant Solution Prednisone 2018-03 No Notes: [facility] 1-15 Take with l 21:21: food. [place] 00 Albuterol 2018-03 No Notes: [facility] a 0.833 MG/ML 1-15 (Same as: l / 21:21: Duoneb) [place] Ipratropium 00 Bowie 0.167 MG/ML Inhalant Solution Prednisone 2018-03 No Notes: [facility] 1-15 Take with l 21:21: food. [place] 00 Albuterol 2018-03 No Notes: [facility] a 0.833 MG/ML 1-15 (Same as: l / 21:21: Duoneb) [place] Ipratropium 00 Bowie 0.167 MG/ML Inhalant Solution Prednisone 2018-03 No Notes: [facility] 1-15 Take with l 21:21: food. [place] 00 Saline 2018-03 No Notes: [facility] Flush 0.9% 1-15 (Same as: l 20:25: BD [place] 00 Posiflush) Saline 2018-03 No Notes: [facility] Flush 0.9% 1-15 (Same as: l 20:25: BD [place] 00 Posiflush) Saline 2018-03 No Notes: [facility] Flush 0.9% 1-15 (Same as: l 20:25: BD [place] 00 Posiflush) Saline 2018-03 No Notes: [facility] Flush 0.9% 1-15 (Same as: l 20:25: BD [place] 00 Posiflush) Saline 2018-03 No Notes: [facility] Flush 0.9% 1-15 (Same as: l 20:25: BD [place] 00 Posiflush) Saline 2018-03 No Notes: [facility] Flush 0.9% 1-15 (Same as: l 20:25: BD [place] 00 Posiflush) Saline 2018-03 No Notes: [facility] Flush 0.9% 1-15 (Same as: l 20:25: BD [place] 00 Posiflush) Saline 2018-03 No Notes: [facility] Flush 0.9% 1-15 (Same as: l 20:25: BD [place] 00 Posiflush) Saline 2018-03 No Notes: [facility] Flush 0.9% 1-15 (Same as: l 20:25: BD [place] 00 Posiflush) Saline 2018-03 No Notes: [facility] Flush 0.9% 1-15 (Same as: l 20:25: BD [place] Posiflush) Saline 2018-03 No Notes: [facility] Flush 0.9% 1-15 (Same as: l 20:25: BD [place] Posiflush) baclofen 10 2018-03 2020- No [id number] 10mg Take 1 [facility] mg tablet 03-15 tablet by [facility] of 00:00: 00:00 mouth 3 [place] 00 :00 (three) [facility] times [facility] daily. lisinopril 2018-03 2020- No [id number] 5mg Take 1 [facility] 5 mg tablet 03-30 tablet by it y of 00:00: 00:00 mouth [place] 00 :00 daily. [facility] allopurinol 2020- No [id number] 100mg Take 1 [facility] 100 mg 11-19 tablet by ity of tablet 00:00: 00:00 mouth [place] 00 :00 daily. [facility] atorvastati 2020- No [id number] 20mg Take 1 [facility] n 20 mg 08-01 tablet by ity of tablet 00:00: 00:00 mouth at [place] 00 :00 bedtime. [facility] amLODIPine 2020- No [id number] 5mg Take 1 [facility] (NORVASC) 5 08-01 tablet by it y of mg tablet 00:00: 00:00 mouth [place] 00 :00 daily. [facility] methocarbam 2020- No [id number] 500mg Take 1 [facility] ol 500 mg 07-07 tablet by ity of tablet 00:00: 00:00 mouth 3 [place] 00 :00 (three) [facility] times [facility] daily as needed (muscle spasm/pain ). Lancets 2017- Yes [id number] Use as Uni vers Misc 0-04 directed ity of 00:00: [place] 00 [facility] Lancets 2017- Yes [id number] Use as Uni vers Misc 0-04 directed ity of 00:00: [place] 00 [facility] Lancets 2017- Yes [id number] Use as Uni vers Misc 0-04 directed ity of 00:00: [place] 00 [facility] Lancets 2017- Yes [id number] Use as [facility] vers Misc 0-04 directed ity of 00:00: [place] 00 [facility] Lancets 2017-1 Yes [id number] Use as Uni vers Misc 0-04 directed ity of 00:00: [place] [facility] Lancets 2017-1 Yes [id number] Use as Uni vers Misc 0-04 directed ity of 00:00: [place] [facility] Lancets 2017-1 Yes [id number] Use as Uni vers Misc 0-04 directed ity of 00:00: [place] [facility] Lancets 2017-1 Yes [id number] Use as Uni vers Misc 0-04 directed ity of 00:00: [place] [facility] Lancets 2017-1 Yes [id number] Use as [facility] vers Misc 0-04 directed ity of 00:00: [place] [facility] Lancets 2017-1 Yes [id number] Use as [facility] vers Misc 0-04 directed ity of 00:00: [place] [facility] Lancets 2017-1 Yes [id number] Use as [facility] vers Misc 0-04 directed ity of 00:00: [place] [facility] Lancets 2017-1 Yes [id number] Use as [facility] vers Misc 0-04 directed ity of 00:00: [place] [facility] Lancets 2017-1 Yes [id number] Use as [facility] vers Misc 0-04 directed ity of 00:00: [place] [facility] Lancets 2017-1 Yes [id number] Use as [facility] vers Misc 0-04 directed ity of 00:00: [place] [facility] Lancets 2017-1 Yes [id number] Use as [facility] vers Misc 0-04 directed ity of 00:00: [place] [facility] Lancets 2017-1 Yes [id number] Use as [facility] vers Misc 0-04 directed ity of 00:00: [place] [facility] Lancets 2017-1 Yes [id number] Use as [facility] vers Misc 0-04 directed ity of 00:00: [place] [facility] Lancets 2017-1 Yes [id number] Use as [facility] vers Misc 0-04 directed ity of 00:00: [place] [facility] Lancets 2017-1 Yes [id number] Use as [facility] vers Misc 0-04 directed ity of 00:00: [place] [facility] Lancets 2017-1 Yes [id number] Use as [facility] vers Misc 0-04 directed ity of 00:00: [place] [facility] Lancets 2017- Yes [id number] Use as [facility] vers Misc 0-04 directed ity of 00:00: [place] [facility] Lancets 2017-1 Yes [id number] Use as [facility] vers Misc 0-04 directed ity of 00:00: [place] [facility] Lancets 2017-1 Yes [id number] Use as [facility] vers Misc 0-04 directed ity of 00:00: [place] [facility] Lancets 2017-1 Yes [id number] Use as [facility] vers Misc 0-04 directed ity of 00:00: [place] [facility] Lancets 2017- Yes [id number] Use as [facility] vers Misc 0-04 directed ity of 00:00: [place] [facility] Lancets 2017-1 Yes [id number] Use as [facility] vers Misc 0-04 directed ity of 00:00: [place] [facility] Lancets 2017- Yes [id number] Use as Uni vers Misc 0-04 directed ity of 00:00: [place] [facility] Lancets 2017-1 Yes [id number] Use as [facility] vers Misc 0-04 directed ity of 00:00: [place] [facility] Lancets 2017-1 Yes [id number] Use as [facility] vers Misc 0-04 directed ity of 00:00: [place] [facility] Lancets 2017-1 Yes [id number] Use as [facility] vers Misc 0-04 directed ity of 00:00: [place] [facility] Lancets 2017-1 Yes [id number] Use as [facility] vers Misc 0-04 directed ity of 00:00: [place] [facility] Lancets 2017-1 Yes [id number] Use as [facility] vers Misc 0-04 directed ity of 00:00: [place] [facility] Lancets 2017-1 Yes [id number] Use as Uni vers Misc 0-04 directed ity of 00:00: [place] [facility] Lancets 2017-1 Yes [id number] Use as [facility] vers Misc 0-04 directed ity of 00:00: [place] [facility] Lancets 2017-1 Yes [id number] Use as [facility] vers Misc 0-04 directed ity of 00:00: [place] [facility] Lancets 2017-1 Yes [id number] Use as [facility] vers Misc 0-04 directed ity of 00:00: [place] [facility] Lancets 2017-1 Yes [id number] Use as Uni vers Misc 0-04 directed ity of 00:00: [place] 00 [facility] Lancets 2017- Yes [id number] Use as Uni vers Misc 0-04 directed ity of 00:00: [place] [facility] Lancets 2017- Yes [id number] Use as Uni vers Misc 0-04 directed ity of 00:00: [place] [facility] Lancets 2017- Yes [id number] Use as [facility] vers Misc 0-04 directed ity of 00:00: [place] [facility] Lancets 2017- Yes [id number] Use as [facility] vers Misc 0-04 directed ity of 00:00: [place] [facility] Lancets 2017- Yes [id number] Use as [facility] vers Misc 0-04 directed ity of 00:00: [place] [facility] Lancets 2017- Yes [id number] Use as [facility] vers Misc 0-04 directed ity of 00:00: [place] [facility] Lancets 2017- Yes [id number] Use as [facility] vers Misc 0-04 directed ity of 00:00: [place] [facility] Lancets 2017- Yes [id number] Use as [facility] vers Misc 0-04 directed ity of 00:00: [place] [facility] Lancets 2017- Yes [id number] Use as [facility] vers Misc 0-04 directed ity of 00:00: [place] [facility] Lancets 2017- Yes [id number] Use as [facility] vers Misc 0-04 directed ity of 00:00: [place] [facility] Lancets 2017- Yes [id number] Use as [facility] vers Misc 0-04 directed ity of 00:00: [place] [facility] Lancets 2017- Yes [id number] Use as [facility] vers Misc 0-04 directed ity of 00:00: [place] [facility] Lancets 2017- Yes [id number] Use as [facility] vers Misc 0-04 directed ity of 00:00: [place] [facility] Lancets 2017- Yes [id number] Use as [facility] vers Misc 0-04 directed ity of 00:00: [place] [facility] Lancets 2017- Yes [id number] Use as [facility] vers Misc 0-04 directed ity of 00:00: [place] [facility] Lancets 2017-1 Yes [id number] Use as [facility] vers Misc 0-04 directed ity of 00:00: [place] 00 [facility] Lancets 2017-1 Yes [id number] Use as [facility] vers Misc 0-04 directed ity of 00:00: [place] [facility] Lancets 2017-1 Yes [id number] Use as [facility] vers Misc 0-04 directed ity of 00:00: [place] [facility] Lancets 2017-1 Yes [id number] Use as [facility] vers Misc 0-04 directed ity of 00:00: [place] [facility] Lancets 2017-1 Yes [id number] Use as [facility] vers Misc 0-04 directed ity of 00:00: [place] [facility] Lancets 2017-1 Yes [id number] Use as [facility] vers Misc 0-04 directed ity of 00:00: [place] [facility] Lancets 2017-1 Yes [id number] Use as Uni vers Misc 0-04 directed ity of 00:00: [place] [facility] Lancets 2017-1 Yes [id number] Use as [facility] vers Misc 0-04 directed ity of 00:00: [place] [facility] Lancets 2017-1 Yes [id number] Use as [facility] vers Misc 0-04 directed ity of 00:00: [place] [facility] Lancets 2017-1 Yes [id number] Use as [facility] vers Misc 0-04 directed ity of 00:00: [place] [facility] Lancets 2017-1 Yes [id number] Use as Uni vers Misc 0-04 directed ity of 00:00: [place] [facility] Lancets 2017-1 Yes [id number] Use as [facility] vers Misc 0-04 directed ity of 00:00: [place] [facility] Lancets 2017-1 Yes [id number] Use as Uni vers Misc 0-04 directed ity of 00:00: [place] [facility] Lancets 2017-1 Yes [id number] Use as [facility] vers Misc 0-04 directed ity of 00:00: [place] 00 [facility] Lancets 2017-1 Yes [id number] Use as [facility] vers Misc 0-04 directed ity of 00:00: [place] [facility] Lancets 2017-1 Yes [id number] Use as Uni vers Misc 0-04 directed ity of 00:00: [place] 00 [facility] Lancets 2017-1 Yes [id number] Use as [facility] vers Misc 0-04 directed ity of 00:00: [place] 00 [facility] Lancets 2017-1 Yes [id number] Use as [facility] vers Misc 0-04 directed ity of 00:00: [place] 00 [facility] Lancets 2017-1 Yes [id number] Use as [facility] vers Misc 0-04 directed ity of 00:00: [place] 00 [facility] Lancets 2017-1 Yes [id number] Use as [facility] vers Misc 0-04 directed ity of 00:00: [place] 00 [facility] Lancets 2017-1 Yes [id number] Use as [facility] vers Misc 0-04 directed ity of 00:00: [place] [facility] Lancets 2017-1 Yes [id number] Use as [facility] vers Misc 0-04 directed ity of 00:00: [place] [facility] Lancets 2017-1 Yes [id number] Use as [facility] vers Misc 0-04 directed ity of 00:00: [place] [facility] Lancets 2017-1 Yes [id number] Use as [facility] vers Misc 0-04 directed ity of 00:00: [place] [facility] Lancets 2017-1 Yes [id number] Use as Uni vers Misc 0-04 directed ity of 00:00: [place] [facility] Lancets 2017-1 Yes [id number] Use as [facility] vers Misc 0-04 directed ity of 00:00: [place] [facility] Lancets 2017-1 Yes [id number] Use as [facility] vers Misc 0-04 directed ity of 00:00: [place] [facility] Lancets 2017-1 Yes [id number] Use as [facility] vers Misc 0-04 directed ity of 00:00: [place] [facility] Lancets 2017-1 Yes [id number] Use as [facility] vers Misc 0-04 directed ity of 00:00: [place] [facility] Lancets 2017-1 Yes [id number] Use as [facility] vers Misc 0-04 directed ity of 00:00: [place] 00 [facility] Lancets 2017-1 Yes [id number] Use as [facility] vers Misc 0-04 directed ity of 00:00: [place] 00 [facility] Lancets 2017-1 Yes [id number] Use as [facility] vers Misc 0-04 directed ity of 00:00: [place] 00 [facility] Lancets 2017-1 Yes [id number] Use as [facility] vers Misc 0-04 directed ity of 00:00: [place] 00 [facility] Lancets 2017-1 Yes [id number] Use as [facility] vers Misc 0-04 directed ity of 00:00: [place] 00 [facility] Lancets 2017-1 Yes [id number] Use as Uni vers Misc 0-04 directed ity of 00:00: [place] [facility] Lancets 2017-1 Yes [id number] Use as Uni vers Misc 0-04 directed ity of 00:00: [place] 00 [facility] Lancets 2017-1 Yes [id number] Use as [facility] vers Misc 0-04 directed ity of 00:00: [place] [facility] Lancets 2017-1 Yes [id number] Use as Uni vers Misc 0-04 directed ity of 00:00: [place] [facility] Lancets 2017-1 Yes [id number] Use as Uni vers Misc 0-04 directed ity of 00:00: [place] [facility] Lancets 2017-1 Yes [id number] Use as [facility] vers Misc 0-04 directed ity of 00:00: [place] [facility] Lancets 2017-1 Yes [id number] Use as Uni vers Misc 0-04 directed ity of 00:00: [place] [facility] Lancets 2017-1 Yes [id number] Use as Uni vers Misc 0-04 directed ity of 00:00: [place] [facility] Lancets 2017-1 Yes [id number] Use as [facility] vers Misc 0-04 directed ity of 00:00: [place] [facility] Lancets 2017-1 Yes [id number] Use as Uni vers Misc 0-04 directed ity of 00:00: [place] [facility] Lancets 2017-1 Yes [id number] Use as Uni vers Misc 0-04 directed ity of 00:00: [place] [facility] Lancets 2017-1 Yes [id number] Use as Uni vers Misc 0-04 directed ity of 00:00: [place] 00 [facility] Lancets 2017-1 Yes [id number] Use as Uni vers Misc 0-04 directed ity of 00:00: [place] 00 [facility] Lancets 2017-1 Yes [id number] Use as Uni vers Misc 0-04 directed ity of 00:00: [place] 00 [facility] Lancets 2017-1 Yes [id number] Use as Uni vers Misc 0-04 directed ity of 00:00: [place] 00 [facility] Lancets 2017-1 Yes [id number] Use as Uni vers Misc 0-04 directed ity of 00:00: [place] 00 [facility] Lancets 2017-1 Yes [id number] Use as [facility] vers Misc 0-04 directed ity of 00:00: [place] [facility] Lancets 2017-1 Yes [id number] Use as [facility] vers Misc 0-04 directed ity of 00:00: [place] [facility] Lancets 2017-1 Yes [id number] Use as Uni vers Misc 0-04 directed ity of 00:00: [place] [facility] Lancets 2017-1 Yes [id number] Use as Uni vers Misc 0-04 directed ity of 00:00: [place] [facility] Lancets 2017-1 Yes [id number] Use as [facility] vers Misc 0-04 directed ity of 00:00: [place] [facility] Lancets 2017-1 Yes [id number] Use as Uni vers Misc 0-04 directed ity of 00:00: [place] [facility] Lancets 2017-1 Yes [id number] Use as Uni vers Misc 0-04 directed ity of 00:00: [place] [facility] Lancets 2017-1 Yes [id number] Use as Uni vers Misc 0-04 directed ity of 00:00: [place] [facility] Lancets 2017-1 Yes [id number] Use as Uni vers Misc 0-04 directed ity of 00:00: [place] [facility] Lancets 2017-1 Yes [id number] Use as Uni vers Misc 0-04 directed ity of 00:00: [place] [facility] Lancets 2017-1 Yes [id number] Use as Uni vers Misc 0-04 directed ity of 00:00: [place] [facility] Lancets 2017-1 Yes [id number] Use as Uni vers Misc 0-04 directed ity of 00:00: [place] [facility] Lancets 2017-1 Yes [id number] Use as Uni vers Misc 0-04 directed ity of 00:00: [place] [facility] Lancets 2017-1 Yes [id number] Use as Uni vers Misc 0-04 directed ity of 00:00: [place] [facility] Lancets 2017-1 Yes [id number] Use as Uni vers Misc 0-04 directed ity of 00:00: [place] 00 [facility] Lancets 2017-1 Yes [id number] Use as Uni vers Misc 0-04 directed ity of 00:00: [place] [facility] Lancets 2017-1 Yes [id number] Use as Uni vers Misc 0-04 directed ity of 00:00: [place] [facility] Lancets 2017-1 Yes [id number] Use as Uni vers Misc 0-04 directed ity of 00:00: [place] [facility] Lancets 2017-1 Yes [id number] Use as Uni vers Misc 0-04 directed ity of 00:00: [place] [facility] Lancets 2017-1 Yes [id number] Use as Uni vers Misc 0-04 directed ity of 00:00: [place] [facility] Lancets 2017-1 Yes [id number] Use as Uni vers Misc 0-04 directed ity of 00:00: [place] [facility] Lancets 2017-1 Yes [id number] Use as Uni vers Misc 0-04 directed ity of 00:00: [place] [facility] Lancets 2017-1 Yes [id number] Use as Uni vers Misc 0-04 directed ity of 00:00: [place] [facility] Lancets 2017-1 Yes [id number] Use as Uni vers Misc 0-04 directed ity of 00:00: [place] [facility] Lancets 2017-1 Yes [id number] Use as Uni vers Misc 0-04 directed ity of 00:00: [place] [facility] Lancets 2017-1 Yes [id number] Use as Uni vers Misc 0-04 directed ity of 00:00: [place] [facility] Lancets 2017-1 Yes [id number] Use as Uni vers Misc 0-04 directed ity of 00:00: [place] [facility] Lancets 2017-1 Yes [id number] Use as Uni vers Misc 0-04 directed ity of 00:00: [place] [facility] Lancets 2017-1 Yes [id number] Use as Uni vers Misc 0-04 directed ity of 00:00: [place] [facility] Lancets 2017-1 Yes [id number] Use as Uni vers Misc 0-04 directed ity of 00:00: [place] [facility] Lancets 2017-1 Yes [id number] Use as Uni vers Misc 0-04 directed ity of 00:00: [place] [facility] Lancets 2017-1 Yes [id number] Use as Uni vers Misc 0-04 directed ity of 00:00: [place] [facility] Lancets 2017-1 Yes [id number] Use as Uni vers Misc 0-04 directed ity of 00:00: [place] [facility] Lancets 2017-1 Yes [id number] Use as Uni vers Misc 0-04 directed ity of 00:00: [place] [facility] Lancets 2017-1 Yes [id number] Use as Uni vers Misc 0-04 directed ity of 00:00: [place] [facility] Lancets 2017- Yes [id number] Use as Uni vers Misc 0-04 directed ity of 00:00: [place] [facility] Lancets 2017-1 Yes [id number] Use as Uni vers Misc 0-04 directed ity of 00:00: [place] [facility] Lancets 2017- Yes [id number] Use as Uni vers Misc 0-04 directed ity of 00:00: [place] [facility] Lancets 2017-1 Yes [id number] Use as Uni vers Misc 0-04 directed ity of 00:00: [place] [facility] Lancets 2017- Yes [id number] Use as Uni vers Misc 0-04 directed ity of 00:00: [place] [facility] Lancets 2017-1 Yes [id number] Use as Uni vers Misc 0-04 directed ity of 00:00: [place] [facility] Lancets 2017-1 Yes [id number] Use as Uni vers Misc 0-04 directed ity of 00:00: [place] [facility] Lancets 2017-1 Yes [id number] Use as Uni vers Misc 0-04 directed ity of 00:00: [place] [facility] Lancets 2017-1 Yes [id number] Use as Uni vers Misc 0-04 directed ity of 00:00: [place] [facility] Lancets 2017-1 Yes [id number] Use as Uni vers Misc 0-04 directed ity of 00:00: [place] [facility] Lancets 2017-1 Yes [id number] Use as Uni vers Misc 0-04 directed ity of 00:00: [place] [facility] Lancets 2017-1 Yes [id number] Use as Uni vers Misc 0-04 directed ity of 00:00: [place] 00 [facility] Lancets 2017-1 Yes [id number] Use as Uni vers Misc 0-04 directed ity of 00:00: [place] 00 [facility] Lancets 2017-1 Yes [id number] Use as Uni vers Misc 0-04 directed ity of 00:00: [place] [facility] Lancets 2017-1 Yes [id number] Use as Uni vers Misc 0-04 directed ity of 00:00: [place] [facility] Lancets 2017-1 Yes [id number] Use as Uni vers Misc 0-04 directed ity of 00:00: [place] [facility] Lancets 2017-1 Yes [id number] Use as Uni vers Misc 0-04 directed ity of 00:00: [place] [facility] Lancets 2017-1 Yes [id number] Use as Uni vers Misc 0-04 directed ity of 00:00: [place] [facility] Lancets 2017- Yes [id number] Use as Uni vers Misc 0-04 directed ity of 00:00: [place] [facility] Lancets 2017-1 Yes [id number] Use as Uni vers Misc 0-04 directed ity of 00:00: [place] [facility] Lancets 2017-1 Yes [id number] Use as Uni vers Misc 0-04 directed ity of 00:00: [place] [facility] Lancets 2017-1 Yes [id number] Use as Uni vers Misc 0-04 directed ity of 00:00: [place] [facility] Lancets 2017-1 Yes [id number] Use as Uni vers Misc 0-04 directed ity of 00:00: [place] [facility] Lancets 2017-1 Yes [id number] Use as Uni vers Misc 0-04 directed ity of 00:00: [place] [facility] Lancets 2017-1 Yes [id number] Use as Uni vers Misc 0-04 directed ity of 00:00: [place] [facility] Lancets 2017-1 Yes [id number] Use as Uni vers Misc 0-04 directed ity of 00:00: [place] [facility] Lancets 2017-1 Yes [id number] Use as Uni vers Misc 0-04 directed ity of 00:00: [place] [facility] Lancets 2017-1 Yes [id number] Use as Uni vers Misc 0-04 directed ity of 00:00: [place] 00 [facility] Lancets 2017-1 Yes [id number] Use as Uni vers Misc 0-04 directed ity of 00:00: [place] 00 [facility] Lancets 2017- Yes [id number] Use as Uni vers Misc 0-04 directed ity of 00:00: [place] 00 [facility] Lancets 2017- Yes [id number] Use as Uni vers Misc 0-04 directed ity of 00:00: [place] 00 [facility] Lancets 2017- Yes [id number] Use as Uni vers Misc 0-04 directed ity of 00:00: [place] 00 [facility] Lancets 2017- Yes [id number] Use as Uni vers Misc 0-04 directed ity of 00:00: [place] 00 [facility] Lancets 2017- Yes [id number] Use as Uni vers Misc 0-04 directed ity of 00:00: [place] 00 [facility] Lancets 2017- Yes [id number] Use as Uni vers Misc 0-04 directed ity of 00:00: [place] 00 [facility] Lancets 2017- Yes [id number] Use as Uni vers Misc 0-04 directed ity of 00:00: [place] 00 [facility] Lancets 2017- Yes [id number] Use as Uni vers Misc 0-04 directed [...] 7-20 Rate: 25 l 0.154 13:42: ml/hr, [place] MEQ/ML 00 Infuse Injectable over: 40 Solution [...] 7-20 Rate: 25 l 0.154 13:42: ml/hr, [place] MEQ/ML 00 Infuse Injectable over: 40 Solution [...] 7-20 Rate: 25 l 0.154 13:42: ml/hr, [place] MEQ/ML 00 Infuse Injectable over: 40 Solution [...] tab, PO, l tablet 13:07: Daily, # [place] 00 30 tab, 0 Refill(s) lisinopril 2016-0 Yes 20 mg = 1 Me moria 20 mg oral 5-18 tab, PO, l tablet 13:07: Daily, # [place] 00 30 tab, 0 Refill(s) lisinopril 2016-0 Yes 20 mg = 1 Me moria 20 mg oral 5-18 tab, PO, l tablet 13:07: Daily, # [place] 00 30 tab, 0 Refill(s) lisinopril 2016-0 [...] tab, PO, l tablet 13:07: Daily, # [place] 00 30 tab, 0 Refill(s) lisinopril 2016-0 [...] tab, PO, l tablet 13:07: Daily, # [place] 00 30 tab, 0 Refill(s) Immunizations Ordered [...] [facility] SARS-COV-2 COVID-19 2020-04-28 Completed Unive rsity of PFIZER VACCINE 00:00:00 [facility] SARS-COV-2 COVID-19 2020-04-28 Completed Unive rs[facility] of PFIZER VACCINE 00:00:00 [facility] SARS-COV-2 COVID-19 2020-04-28 Completed Unive rs[facility] of PFIZER VACCINE 00:00:00 [facility] SARS-COV-2 COVID-19 2020-04-28 Completed Unive rsity of PFIZER VACCINE 00:00:00 [facility] SARS-COV-2 COVID-19 2020-04-28 Completed Unive rsity of PFIZER VACCINE 00:00:00 [facility] SARS-COV-2 COVID-19 2020-04-28 Completed Unive rs[facility] of PFIZER VACCINE 00:00:00 [facility] SARS-COV-2 COVID-19 2020-04-28 Completed Unive rsity of PFIZER VACCINE 00:00:00 [facility] SARS-COV-2 COVID-19 2020-04-28 Completed Unive rsity of PFIZER VACCINE 00:00:00 [facility] SARS-COV-2 COVID-19 2020-04-28 Completed Unive rsity of PFIZER VACCINE 00:00:00 [facility] SARS-COV-2 COVID-19 2020-04-28 Completed Unive rsity of PFIZER VACCINE 00:00:00 [facility] SARS-COV-2 COVID-19 2020-04-28 Completed Unive rs[facility] of PFIZER VACCINE 00:00:00 [facility] SARS-COV-2 COVID-19 2020-04-28 Completed Unive rsity of PFIZER VACCINE 00:00:00 [facility] SARS-COV-2 COVID-19 2020-04-28 Completed [facility] PFIZER VACCINE 00:00:00 [facility] SARS-COV-2 COVID-19 2020-04-28 Completed [facility] PFIZER VACCINE 00:00:00 [facility] SARS-COV-2 COVID-19 2020-04-28 Completed [facility] PFIZER VACCINE 00:00:00 [facility] SARS-COV-2 COVID-19 2020-04-28 Completed [facility] PFIZER VACCINE 00:00:00 [facility] SARS-COV-2 COVID-19 2020-04-28 Completed [facility] PFIZER VACCINE 00:00:00 [facility] SARS-COV-2 COVID-19 2020-04-28 Completed [facility] PFIZER VACCINE 00:00:00 [facility] SARS-COV-2 COVID-19 2020-04-28 Completed [facility] PFIZER VACCINE 00:00:00 [facility] SARS-COV-2 COVID-19 2020-04-28 Completed [facility] PFIZER VACCINE 00:00:00 [facility] SARS-COV-2 COVID-19 2020-04-28 Completed [facility] PFIZER VACCINE 00:00:00 [facility] SARS-COV-2 COVID-19 2020-04-28 Completed [facility] PFIZER VACCINE 00:00:00 [facility] SARS-COV-2 COVID-19 2020-04-28 Completed [facility] PFIZER VACCINE 00:00:00 [facility] SARS-COV-2 COVID-19 2020-04-28 Completed [facility] PFIZER VACCINE 00:00:00 [facility] SARS-COV-2 COVID-19 2020-04-28 Completed [facility] PFIZER VACCINE 00:00:00 [facility] SARS-COV-2 COVID-19 2020-04-28 Completed [facility] PFIZER VACCINE 00:00:00 [facility] SARS-COV-2 COVID-19 2020-04-28 Completed [facility] PFIZER VACCINE 00:00:00 [facility] SARS-COV-2 COVID-19 2020-04-28 Completed [facility] PFIZER VACCINE 00:00:00 [facility] SARS-COV-2 COVID-19 2020-04-28 Completed [facility] PFIZER VACCINE 00:00:00 [facility] SARS-COV-2 COVID-19 2020-04-28 Completed [facility] PFIZER VACCINE 00:00:00 [facility] SARS-COV-2 COVID-19 2020-04-28 Completed [facility] PFIZER VACCINE 00:00:00 [facility] SARS-COV-2 COVID-19 2020-04-28 Completed [facility] PFIZER VACCINE 00:00:00 [facility] SARS-COV-2 COVID-19 2020-04-28 Completed [facility] PFIZER VACCINE 00:00:00 [facility] SARS-COV-2 COVID-19 2020-04-28 Completed [facility] PFIZER VACCINE 00:00:00 [facility] SARS-COV-2 COVID-19 2020-04-28 Completed [facility] PFIZER VACCINE 00:00:00 [facility] SARS-COV-2 COVID-19 2020-04-28 Completed [facility] PFIZER VACCINE 00:00:00 [facility] SARS-COV-2 COVID-19 2020-04-28 Completed [facility] PFIZER VACCINE 00:00:00 [facility] SARS-COV-2 COVID-19 2020-04-28 Completed [facility] PFIZER VACCINE 00:00:00 [facility] SARS-COV-2 COVID-19 2020-04-28 Completed [facility] PFIZER VACCINE 00:00:00 [facility] SARS-COV-2 COVID-19 2020-04-28 Completed [facility] PFIZER VACCINE 00:00:00 [facility] SARS-COV-2 COVID-19 2020-04-28 Completed [facility] PFIZER VACCINE 00:00:00 [facility] SARS-COV-2 COVID-19 2020-04-28 Completed [facility] PFIZER VACCINE 00:00:00 [facility] SARS-COV-2 COVID-19 2020-04-28 Completed [facility] PFIZER VACCINE 00:00:00 [facility] SARS-COV-2 COVID-19 2020-04-28 Completed [facility] PFIZER VACCINE 00:00:00 [facility] SARS-COV-2 COVID-19 2020-04-28 Completed [facility] PFIZER VACCINE 00:00:00 [facility] SARS-COV-2 COVID-19 2020-04-28 Completed [facility] PFIZER VACCINE 00:00:00 [facility] SARS-COV-2 COVID-19 2020-04-28 Completed [facility] PFIZER VACCINE 00:00:00 [facility] SARS-COV-2 COVID-19 2020-04-28 Completed [facility] PFIZER VACCINE 00:00:00 [facility] SARS-COV-2 COVID-19 2020-04-28 Completed [facility] PFIZER VACCINE 00:00:00 [facility] SARS-COV-2 COVID-19 2020-04-28 Completed [facility] PFIZER VACCINE 00:00:00 [facility] SARS-COV-2 COVID-19 2020-04-28 Completed [facility] PFIZER VACCINE 00:00:00 [facility] SARS-COV-2 COVID-19 2020-04-28 Completed [facility] PFIZER VACCINE 00:00:00 [facility] SARS-COV-2 COVID-19 2020-04-28 Completed [facility] PFIZER VACCINE 00:00:00 [facility] SARS-COV-2 COVID-19 2020-04-28 Completed [facility] PFIZER VACCINE 00:00:00 [facility] SARS-COV-2 COVID-19 2020-04-28 Completed [facility] PFIZER VACCINE 00:00:00 [facility] SARS-COV-2 COVID-19 2020-04-28 Completed [facility] PFIZER VACCINE 00:00:00 [facility] SARS-COV-2 COVID-19 2020-04-28 Completed [facility] PFIZER VACCINE 00:00:00 [facility] SARS-COV-2 COVID-19 2020-04-28 Completed [facility] PFIZER VACCINE 00:00:00 [facility] SARS-COV-2 COVID-19 2020-04-28 Completed [facility] PFIZER VACCINE 00:00:00 [facility] SARS-COV-2 COVID-19 2020-04-28 Completed [facility] PFIZER VACCINE 00:00:00 [facility] SARS-COV-2 COVID-19 2020-04-28 Completed [facility] PFIZER VACCINE 00:00:00 [facility] SARS-COV-2 COVID-19 2020-04-28 Completed [facility] PFIZER VACCINE 00:00:00 [facility] SARS-COV-2 COVID-19 2020-04-28 Completed [facility] PFIZER VACCINE 00:00:00 [facility] SARS-COV-2 COVID-19 2020-04-28 Completed [facility] PFIZER VACCINE 00:00:00 [facility] SARS-COV-2 COVID-19 2020-04-28 Completed [facility] PFIZER VACCINE 00:00:00 [facility] SARS-COV-2 COVID-19 2020-04-28 Completed [facility] PFIZER VACCINE 00:00:00 [facility] SARS-COV-2 COVID-19 2020-04-28 Completed [facility] PFIZER VACCINE 00:00:00 [facility] SARS-COV-2 COVID-19 2020-04-28 Completed [facility] PFIZER VACCINE 00:00:00 [facility] SARS-COV-2 COVID-19 2020-04-28 Completed [facility] PFIZER VACCINE 00:00:00 [facility] SARS-COV-2 COVID-19 2020-04-28 Completed [facility] PFIZER VACCINE 00:00:00 [facility] SARS-COV-2 COVID-19 2020-04-28 Completed [facility] PFIZER VACCINE 00:00:00 [facility] SARS-COV-2 COVID-19 2020-04-28 Completed [facility] PFIZER VACCINE 00:00:00 [facility] SARS-COV-2 COVID-19 2020-04-28 Completed [facility] PFIZER VACCINE 00:00:00 [facility] SARS-COV-2 COVID-19 2020-04-28 Completed [facility] PFIZER VACCINE 00:00:00 [facility] SARS-COV-2 COVID-19 2020-04-28 Completed [facility] PFIZER VACCINE 00:00:00 [facility] SARS-COV-2 COVID-19 2020-04-28 Completed [facility] PFIZER VACCINE 00:00:00 [facility] SARS-COV-2 COVID-19 2020-04-28 Completed [facility] PFIZER VACCINE 00:00:00 [facility] SARS-COV-2 COVID-19 2020-04-28 Completed [facility] PFIZER VACCINE 00:00:00 [facility] SARS-COV-2 COVID-19 2020-04-28 Completed [facility] PFIZER VACCINE 00:00:00 [facility] SARS-COV-2 COVID-19 2020-04-28 Completed [facility] PFIZER VACCINE 00:00:00 [facility] SARS-COV-2 COVID-19 2020-04-28 Completed [facility] PFIZER VACCINE 00:00:00 [facility] SARS-COV-2 COVID-19 2020-04-28 Completed [facility] PFIZER VACCINE 00:00:00 [facility] SARS-COV-2 COVID-19 2020-04-28 Completed [facility] PFIZER VACCINE 00:00:00 [facility] SARS-COV-2 COVID-19 2020-04-28 Completed [facility] PFIZER VACCINE 00:00:00 [facility] SARS-COV-2 COVID-19 2020-04-28 Completed [facility] PFIZER VACCINE 00:00:00 [facility] SARS-COV-2 COVID-19 2020-04-28 Completed [facility] PFIZER VACCINE 00:00:00 [facility] SARS-COV-2 COVID-19 2020-04-28 Completed [facility] PFIZER VACCINE 00:00:00 [facility] SARS-COV-2 COVID-19 2020-04-28 Completed [facility] PFIZER VACCINE 00:00:00 [facility] SARS-COV-2 COVID-19 2020-04-28 Completed [facility] PFIZER VACCINE 00:00:00 [facility] SARS-COV-2 COVID-19 2020-04-28 Completed [facility] PFIZER VACCINE 00:00:00 [facility] SARS-COV-2 COVID-19 2020-04-28 Completed [facility] PFIZER VACCINE 00:00:00 [facility] SARS-COV-2 COVID-19 2020-04-28 Completed [facility] PFIZER VACCINE 00:00:00 [facility] SARS-COV-2 COVID-19 2020-04-28 Completed [facility] PFIZER VACCINE 00:00:00 [facility] SARS-COV-2 COVID-19 2020-04-28 Completed [facility] PFIZER VACCINE 00:00:00 [facility] SARS-COV-2 COVID-19 2020-04-28 Completed [facility] PFIZER VACCINE 00:00:00 [facility] SARS-COV-2 COVID-19 2020-04-28 Completed [facility] PFIZER VACCINE 00:00:00 [facility] SARS-COV-2 COVID-19 2020-04-28 Completed [facility] PFIZER VACCINE 00:00:00 [facility] SARS-COV-2 COVID-19 2020-04-28 Completed [facility] PFIZER VACCINE 00:00:00 [facility] SARS-COV-2 COVID-19 2020-04-28 Completed [facility] PFIZER VACCINE 00:00:00 [facility] SARS-COV-2 COVID-19 2020-04-28 Completed [facility] PFIZER VACCINE 00:00:00 [facility] SARS-COV-2 COVID-19 2020-04-28 Completed [facility] PFIZER VACCINE 00:00:00 [facility] SARS-COV-2 COVID-19 2020-04-28 Completed [facility] PFIZER VACCINE 00:00:00 [facility] SARS-COV-2 COVID-19 2020-04-28 Completed [facility] PFIZER VACCINE 00:00:00 [facility] SARS-COV-2 COVID-19 2020-04-28 Completed [facility] PFIZER VACCINE 00:00:00 [facility] SARS-COV-2 COVID-19 2020-04-28 Completed [facility] PFIZER VACCINE 00:00:00 [facility] SARS-COV-2 COVID-19 2020-04-28 Completed [facility] PFIZER VACCINE 00:00:00 [facility] SARS-COV-2 COVID-19 2020-04-28 Completed [facility] PFIZER VACCINE 00:00:00 [facility] SARS-COV-2 COVID-19 2020-04-28 Completed [facility] PFIZER VACCINE 00:00:00 [facility] SARS-COV-2 COVID-19 2020-04-28 Completed [facility] PFIZER VACCINE 00:00:00 [facility] SARS-COV-2 COVID-19 2020-04-28 Completed [facility] PFIZER VACCINE 00:00:00 [facility] SARS-COV-2 COVID-19 2020-04-28 Completed [facility] PFIZER VACCINE 00:00:00 [facility] SARS-COV-2 COVID-19 2020-04-28 Completed [facility] PFIZER VACCINE 00:00:00 [facility] SARS-COV-2 COVID-19 2020-04-28 Completed [facility] PFIZER VACCINE 00:00:00 [facility] SARS-COV-2 COVID-19 2020-04-28 Completed [facility] PFIZER VACCINE 00:00:00 [facility] SARS-COV-2 COVID-19 2020-04-28 Completed [facility] PFIZER VACCINE 00:00:00 [facility] SARS-COV-2 COVID-19 2020-04-28 Completed [facility] PFIZER VACCINE 00:00:00 [facility] SARS-COV-2 COVID-19 2020-04-28 Completed [facility] PFIZER VACCINE 00:00:00 [facility] SARS-COV-2 COVID-19 2020-04-03 Completed [facility] PFIZER VACCINE 00:00:00 [facility] SARS-COV-2 COVID-19 2020-04-03 Completed [facility] PFIZER VACCINE 00:00:00 [facility] SARS-COV-2 COVID-19 2020-04-03 Completed [facility] PFIZER VACCINE 00:00:00 [facility] SARS-COV-2 COVID-19 2020-04-03 Completed [facility] PFIZER VACCINE 00:00:00 [facility] SARS-COV-2 COVID-19 2020-04-03 Completed [facility] PFIZER VACCINE 00:00:00 [facility] SARS-COV-2 COVID-19 2020-04-03 Completed [facility] PFIZER VACCINE 00:00:00 [facility] SARS-COV-2 COVID-19 2020-04-03 Completed [facility] PFIZER VACCINE 00:00:00 [facility] SARS-COV-2 COVID-19 2020-04-03 Completed [facility] PFIZER VACCINE 00:00:00 [facility] SARS-COV-2 COVID-19 2020-04-03 Completed [facility] PFIZER VACCINE 00:00:00 [facility] SARS-COV-2 COVID-19 2020-04-03 Completed [facility] PFIZER VACCINE 00:00:00 [facility] SARS-COV-2 COVID-19 2020-04-03 Completed [facility] PFIZER VACCINE 00:00:00 [facility] SARS-COV-2 COVID-19 2020-04-03 Completed [facility] PFIZER VACCINE 00:00:00 [facility] SARS-COV-2 COVID-19 2020-04-03 Completed [facility] PFIZER VACCINE 00:00:00 [facility] SARS-COV-2 COVID-19 2020-04-03 Completed [facility] PFIZER VACCINE 00:00:00 [facility] SARS-COV-2 COVID-19 2020-04-03 Completed [facility] PFIZER VACCINE 00:00:00 [facility] SARS-COV-2 COVID-19 2020-04-03 Completed [facility] PFIZER VACCINE 00:00:00 [facility] SARS-COV-2 COVID-19 2020-04-03 Completed [facility] PFIZER VACCINE 00:00:00 [facility] SARS-COV-2 COVID-19 2020-04-03 Completed [facility] PFIZER VACCINE 00:00:00 [facility] SARS-COV-2 COVID-19 2020-04-03 Completed [facility] PFIZER VACCINE 00:00:00 [facility] SARS-COV-2 COVID-19 2020-04-03 Completed [facility] PFIZER VACCINE 00:00:00 [facility] SARS-COV-2 COVID-19 2020-04-03 Completed [facility] PFIZER VACCINE 00:00:00 [facility] SARS-COV-2 COVID-19 2020-04-03 Completed [facility] PFIZER VACCINE 00:00:00 [facility] SARS-COV-2 COVID-19 2020-04-03 Completed [facility] PFIZER VACCINE 00:00:00 [facility] SARS-COV-2 COVID-19 2020-04-03 Completed [facility] PFIZER VACCINE 00:00:00 [facility] SARS-COV-2 COVID-19 2020-04-03 Completed [facility] PFIZER VACCINE 00:00:00 [facility] SARS-COV-2 COVID-19 2020-04-03 Completed [facility] PFIZER VACCINE 00:00:00 [facility] SARS-COV-2 COVID-19 2020-04-03 Completed [facility] PFIZER VACCINE 00:00:00 [facility] SARS-COV-2 COVID-19 2020-04-03 Completed [facility] PFIZER VACCINE 00:00:00 [facility] SARS-COV-2 COVID-19 2020-04-03 Completed [facility] PFIZER VACCINE 00:00:00 [facility] SARS-COV-2 COVID-19 2020-04-03 Completed [facility] PFIZER VACCINE 00:00:00 [facility] SARS-COV-2 COVID-19 2020-04-03 Completed [facility] PFIZER VACCINE 00:00:00 [facility] SARS-COV-2 COVID-19 2020-04-03 Completed [facility] PFIZER VACCINE 00:00:00 [facility] SARS-COV-2 COVID-19 2020-04-03 Completed [facility] PFIZER VACCINE 00:00:00 [facility] SARS-COV-2 COVID-19 2020-04-03 Completed [facility] PFIZER VACCINE 00:00:00 [facility] SARS-COV-2 COVID-19 2020-04-03 Completed [facility] PFIZER VACCINE 00:00:00 [facility] SARS-COV-2 COVID-19 2020-04-03 Completed [facility] PFIZER VACCINE 00:00:00 [facility] SARS-COV-2 COVID-19 2020-04-03 Completed [facility] PFIZER VACCINE 00:00:00 [facility] SARS-COV-2 COVID-19 2020-04-03 Completed [facility] PFIZER VACCINE 00:00:00 [facility] SARS-COV-2 COVID-19 2020-04-03 Completed [facility] PFIZER VACCINE 00:00:00 [facility] SARS-COV-2 COVID-19 2020-04-03 Completed [facility] PFIZER VACCINE 00:00:00 [facility] SARS-COV-2 COVID-19 2020-04-03 Completed [facility] PFIZER VACCINE 00:00:00 [facility] SARS-COV-2 COVID-19 2020-04-03 Completed [facility] PFIZER VACCINE 00:00:00 [facility] SARS-COV-2 COVID-19 2020-04-03 Completed [facility] PFIZER VACCINE 00:00:00 [facility] SARS-COV-2 COVID-19 2020-04-03 Completed [facility] PFIZER VACCINE 00:00:00 [facility] SARS-COV-2 COVID-19 2020-04-03 Completed [facility] PFIZER VACCINE 00:00:00 [facility] SARS-COV-2 COVID-19 2020-04-03 Completed [facility] PFIZER VACCINE 00:00:00 [facility] SARS-COV-2 COVID-19 2020-04-03 Completed [facility] PFIZER VACCINE 00:00:00 [facility] SARS-COV-2 COVID-19 2020-04-03 Completed [facility] PFIZER VACCINE 00:00:00 [facility] SARS-COV-2 COVID-19 2020-04-03 Completed [facility] PFIZER VACCINE 00:00:00 [facility] SARS-COV-2 COVID-19 2020-04-03 Completed [facility] PFIZER VACCINE 00:00:00 [facility] SARS-COV-2 COVID-19 2020-04-03 Completed [facility] PFIZER VACCINE 00:00:00 [facility] SARS-COV-2 COVID-19 2020-04-03 Completed [facility] PFIZER VACCINE 00:00:00 [facility] SARS-COV-2 COVID-19 2020-04-03 Completed [facility] PFIZER VACCINE 00:00:00 [facility] SARS-COV-2 COVID-19 2020-04-03 Completed [facility] PFIZER VACCINE 00:00:00 [facility] SARS-COV-2 COVID-19 2020-04-03 Completed [facility] PFIZER VACCINE 00:00:00 [facility] SARS-COV-2 COVID-19 2020-04-03 Completed [facility] PFIZER VACCINE 00:00:00 [facility] SARS-COV-2 COVID-19 2020-04-03 Completed [facility] PFIZER VACCINE 00:00:00 [facility] SARS-COV-2 COVID-19 2020-04-03 Completed [facility] PFIZER VACCINE 00:00:00 [facility] SARS-COV-2 COVID-19 2020-04-03 Completed [facility] PFIZER VACCINE 00:00:00 [facility] SARS-COV-2 COVID-19 2020-04-03 Completed [facility] PFIZER VACCINE 00:00:00 [facility] SARS-COV-2 COVID-19 2020-04-03 Completed [facility] PFIZER VACCINE 00:00:00 [facility] SARS-COV-2 COVID-19 2020-04-03 Completed [facility] PFIZER VACCINE 00:00:00 [facility] SARS-COV-2 COVID-19 2020-04-03 Completed [facility] PFIZER VACCINE 00:00:00 [facility] SARS-COV-2 COVID-19 2020-04-03 Completed [facility] PFIZER VACCINE 00:00:00 [facility] SARS-COV-2 COVID-19 2020-04-03 Completed [facility] PFIZER VACCINE 00:00:00 [facility] SARS-COV-2 COVID-19 2020-04-03 Completed [facility] PFIZER VACCINE 00:00:00 [facility] SARS-COV-2 COVID-19 2020-04-03 Completed [facility] PFIZER VACCINE 00:00:00 [facility] SARS-COV-2 COVID-19 2020-04-03 Completed [facility] PFIZER VACCINE 00:00:00 [facility] SARS-COV-2 COVID-19 2020-04-03 Completed [facility] PFIZER VACCINE 00:00:00 [facility] SARS-COV-2 COVID-19 2020-04-03 Completed [facility] PFIZER VACCINE 00:00:00 [facility] SARS-COV-2 COVID-19 2020-04-03 Completed [facility] PFIZER VACCINE 00:00:00 [facility] SARS-COV-2 COVID-19 2020-04-03 Completed [facility] PFIZER VACCINE 00:00:00 [facility] SARS-COV-2 COVID-19 2020-04-03 Completed [facility] PFIZER VACCINE 00:00:00 [facility] SARS-COV-2 COVID-19 2020-04-03 Completed [facility] PFIZER VACCINE 00:00:00 [facility] SARS-COV-2 COVID-19 2020-04-03 Completed [facility] PFIZER VACCINE 00:00:00 [facility] SARS-COV-2 COVID-19 2020-04-03 Completed [facility] PFIZER VACCINE 00:00:00 [facility] SARS-COV-2 COVID-19 2020-04-03 Completed [facility] PFIZER VACCINE 00:00:00 [facility] SARS-COV-2 COVID-19 2020-04-03 Completed [facility] PFIZER VACCINE 00:00:00 [facility] SARS-COV-2 COVID-19 2020-04-03 Completed [facility] PFIZER VACCINE 00:00:00 [facility] SARS-COV-2 COVID-19 2020-04-03 Completed [facility] PFIZER VACCINE 00:00:00 [facility] SARS-COV-2 COVID-19 2020-04-03 Completed [facility] PFIZER VACCINE 00:00:00 [facility] SARS-COV-2 COVID-19 2020-04-03 Completed [facility] PFIZER VACCINE 00:00:00 [facility] SARS-COV-2 COVID-19 2020-04-03 Completed [facility] PFIZER VACCINE 00:00:00 [facility] SARS-COV-2 COVID-19 2020-04-03 Completed [facility] PFIZER VACCINE 00:00:00 [facility] SARS-COV-2 COVID-19 2020-04-03 Completed [facility] PFIZER VACCINE 00:00:00 [facility] SARS-COV-2 COVID-19 2020-04-03 Completed [facility] PFIZER VACCINE 00:00:00 [facility] SARS-COV-2 COVID-19 2020-04-03 Completed [facility] PFIZER VACCINE 00:00:00 [facility] SARS-COV-2 COVID-19 2020-04-03 Completed [facility] PFIZER VACCINE 00:00:00 [facility] SARS-COV-2 COVID-19 2020-04-03 Completed [facility] PFIZER VACCINE 00:00:00 [facility] SARS-COV-2 COVID-19 2020-04-03 Completed [facility] PFIZER VACCINE 00:00:00 [facility] SARS-COV-2 COVID-19 2020-04-03 Completed [facility] PFIZER VACCINE 00:00:00 [facility] SARS-COV-2 COVID-19 2020-04-03 Completed [facility] PFIZER VACCINE 00:00:00 [facility] SARS-COV-2 COVID-19 2020-04-03 Completed [facility] PFIZER VACCINE 00:00:00 [facility] SARS-COV-2 COVID-19 2020-04-03 Completed [facility] PFIZER VACCINE 00:00:00 [facility] SARS-COV-2 COVID-19 2020-04-03 Completed [facility] PFIZER VACCINE 00:00:00 [facility] SARS-COV-2 COVID-19 2020-04-03 Completed [facility] PFIZER VACCINE 00:00:00 [facility] SARS-COV-2 COVID-19 2020-04-03 Completed [facility] PFIZER VACCINE 00:00:00 [facility] SARS-COV-2 COVID-19 2020-04-03 Completed [facility] PFIZER VACCINE 00:00:00 [facility] SARS-COV-2 COVID-19 2020-04-03 Completed [facility] PFIZER VACCINE 00:00:00 [facility] SARS-COV-2 COVID-19 2020-04-03 Completed [facility] PFIZER VACCINE 00:00:00 [facility] SARS-COV-2 COVID-19 2020-04-03 Completed [facility] PFIZER VACCINE 00:00:00 [facility] SARS-COV-2 COVID-19 2020-04-03 Completed [facility] PFIZER VACCINE 00:00:00 [facility] SARS-COV-2 COVID-19 2020-04-03 Completed [facility] PFIZER VACCINE 00:00:00 [facility] SARS-COV-2 COVID-19 2020-04-03 Completed [facility] PFIZER VACCINE 00:00:00 [facility] SARS-COV-2 COVID-19 2020-04-03 Completed [facility] PFIZER VACCINE 00:00:00 [facility] SARS-COV-2 COVID-19 2020-04-03 Completed [facility] PFIZER VACCINE 00:00:00 [facility] SARS-COV-2 COVID-19 2020-04-03 Completed [facility] PFIZER VACCINE 00:00:00 [facility] SARS-COV-2 COVID-19 2020-04-03 Completed [facility] PFIZER VACCINE 00:00:00 [facility] SARS-COV-2 COVID-19 2020-04-03 Completed [facility] PFIZER VACCINE 00:00:00 [facility] SARS-COV-2 COVID-19 2020-04-03 Completed [facility] PFIZER VACCINE 00:00:00 [facility] SARS-COV-2 COVID-19 2020-04-03 Completed [facility] PFIZER VACCINE 00:00:00 [facility] SARS-COV-2 COVID-19 2020-04-03 Completed [facility] PFIZER VACCINE 00:00:00 [facility] SARS-COV-2 COVID-19 2020-04-03 Completed [facility] PFIZER VACCINE 00:00:00 [facility] SARS-COV-2 COVID-19 2020-04-03 Completed [facility] PFIZER VACCINE 00:00:00 [facility] SARS-COV-2 COVID-19 2020-04-03 Completed [facility] PFIZER VACCINE 00:00:00 [facility] SARS-COV-2 COVID-19 2020-04-03 Completed [facility] PFIZER VACCINE 00:00:00 [facility] SARS-COV-2 COVID-19 2020-04-03 Completed [facility] PFIZER VACCINE 00:00:00 [facility] SARS-COV-2 COVID-19 2020-04-03 Completed [facility] PFIZER VACCINE 00:00:00 [facility] Influenza High Dose 2019-11-24 Completed [facility] 00:00:00 [facility] Influenza Virus 2019-11-24 Completed [facility] Vaccine 00:00:00 [facility] Influenza High Dose 2019-11-24 Completed [facility] 00:00:00 [facility] Influenza Virus 2019-11-24 Completed [facility] Vaccine 00:00:00 [facility] Influenza High Dose 2019-11-24 Completed [facility] 00:00:00 [facility] Influenza Virus 2019-11-24 Completed [facility] Vaccine 00:00:00 [facility] Influenza High Dose 2019-11-24 Completed [facility] 00:00:00 [facility] Influenza Virus 2019-11-24 Completed [facility] Vaccine 00:00:00 [facility] Influenza High Dose 2019-11-24 Completed [facility] 00:00:00 [facility] Influenza Virus 2019-11-24 Completed [facility] Vaccine 00:00:00 [facility] Influenza High Dose 2019-11-24 Completed [facility] 00:00:00 [facility] Influenza Virus 2019-11-24 Completed [facility] Vaccine 00:00:00 [facility] Influenza High Dose 2019-11-24 Completed [facility] 00:00:00 [facility] Influenza Virus 2019-11-24 Completed [facility] Vaccine 00:00:00 [facility] Influenza High Dose 2019-11-24 Completed [facility] 00:00:00 [facility] Influenza Virus 2019-11-24 Completed [facility] Vaccine 00:00:00 [facility] Influenza High Dose 2019-11-24 Completed [facility] 00:00:00 [facility] Influenza Virus 2019-11-24 Completed [facility] Vaccine 00:00:00 [facility] Influenza High Dose 2019-11-24 Completed [facility] 00:00:00 [facility] Influenza Virus 2019-11-24 Completed [facility] Vaccine 00:00:00 [facility] Influenza High Dose 2019-11-24 Completed [facility] 00:00:00 [facility] Influenza Virus 2019-11-24 Completed [facility] Vaccine 00:00:00 [facility] Influenza High Dose 2019-11-24 Completed [facility] 00:00:00 [facility] Influenza Virus 2019-11-24 Completed [facility] Vaccine 00:00:00 [facility] Influenza High Dose 2019-11-24 Completed [facility] 00:00:00 [facility] Influenza Virus 2019-11-24 Completed [facility] Vaccine 00:00:00 [facility] Influenza High Dose 2019-11-24 Completed [facility] 00:00:00 [facility] Influenza Virus 2019-11-24 Completed [facility] Vaccine 00:00:00 [facility] Influenza High Dose 2019-11-24 Completed [facility] 00:00:00 [facility] Influenza Virus 2019-11-24 Completed [facility] Vaccine 00:00:00 [facility] Influenza High Dose 2019-11-24 Completed [facility] 00:00:00 [facility] Influenza Virus 2019-11-24 Completed [facility] Vaccine 00:00:00 [facility] Influenza High Dose 2019-11-24 Completed [facility] 00:00:00 [facility] Influenza Virus 2019-11-24 Completed [facility] Vaccine 00:00:00 [facility] Influenza High Dose 2019-11-24 Completed [facility] 00:00:00 [facility] Influenza Virus 2019-11-24 Completed [facility] Vaccine 00:00:00 [facility] Influenza High Dose 2019-11-24 Completed [facility] 00:00:00 [facility] Influenza Virus 2019-11-24 Completed [facility] Vaccine 00:00:00 [facility] Influenza High Dose 2019-11-24 Completed [facility] 00:00:00 [facility] Influenza Virus 2019-11-24 Completed [facility] Vaccine 00:00:00 [facility] Influenza High Dose 2019-11-24 Completed [facility] 00:00:00 [facility] Influenza Virus 2019-11-24 Completed [facility] Vaccine 00:00:00 [facility] Influenza High Dose 2019-11-24 Completed [facility] 00:00:00 [facility] Influenza Virus 2019-11-24 Completed [facility] Vaccine 00:00:00 [facility] Influenza High Dose 2019-11-24 Completed [facility] 00:00:00 [facility] Influenza Virus 2019-11-24 Completed [facility] Vaccine 00:00:00 [facility] Influenza High Dose 2019-11-24 Completed [facility] 00:00:00 [facility] Influenza Virus 2019-11-24 Completed [facility] Vaccine 00:00:00 [facility] Influenza High Dose 2019-11-24 Completed [facility] 00:00:00 [facility] Influenza Virus 2019-11-24 Completed [facility] Vaccine 00:00:00 [facility] Influenza High Dose 2019-11-24 Completed [facility] 00:00:00 [facility] Influenza Virus 2019-11-24 Completed [facility] Vaccine 00:00:00 [facility] Influenza High Dose 2019-11-24 Completed [facility] 00:00:00 [facility] Influenza Virus 2019-11-24 Completed [facility] Vaccine 00:00:00 [facility] Influenza High Dose 2019-11-24 Completed [facility] 00:00:00 [facility] Influenza Virus 2019-11-24 Completed [facility] Vaccine 00:00:00 [facility] Influenza High Dose 2019-11-24 Completed [facility] 00:00:00 [facility] Influenza Virus 2019-11-24 Completed [facility] Vaccine 00:00:00 [facility] Influenza High Dose 2019-11-24 Completed [facility] 00:00:00 [facility] Influenza Virus 2019-11-24 Completed [facility] Vaccine 00:00:00 [facility] Influenza High Dose 2019-11-24 Completed [facility] 00:00:00 [facility] Influenza Virus 2019-11-24 Completed [facility] Vaccine 00:00:00 [facility] Influenza High Dose 2019-11-24 Completed [facility] 00:00:00 [facility] Influenza Virus 2019-11-24 Completed [facility] Vaccine 00:00:00 [facility] Influenza High Dose 2019-11-24 Completed [facility] 00:00:00 [facility] Influenza Virus 2019-11-24 Completed [facility] Vaccine 00:00:00 [facility] Influenza High Dose 2019-11-24 Completed [facility] 00:00:00 [facility] Influenza Virus 2019-11-24 Completed [facility] Vaccine 00:00:00 [facility] Influenza High Dose 2019-11-24 Completed [facility] 00:00:00 [facility] Influenza Virus 2019-11-24 Completed [facility] Vaccine 00:00:00 [facility] Influenza High Dose 2019-11-24 Completed [facility] 00:00:00 [facility] Influenza Virus 2019-11-24 Completed [facility] Vaccine 00:00:00 [facility] Influenza High Dose 2019-11-24 Completed [facility] 00:00:00 [facility] Influenza Virus 2019-11-24 Completed [facility] Vaccine 00:00:00 [facility] Influenza High Dose 2019-11-24 Completed [facility] 00:00:00 [facility] Influenza Virus 2019-11-24 Completed [facility] Vaccine 00:00:00 [facility] Influenza High Dose 2019-11-24 Completed [facility] 00:00:00 [facility] Influenza Virus 2019-11-24 Completed [facility] Vaccine 00:00:00 [facility] Influenza High Dose 2019-11-24 Completed [facility] 00:00:00 [facility] Influenza Virus 2019-11-24 Completed [facility] Vaccine 00:00:00 [facility] Influenza High Dose 2019-11-24 Completed [facility] 00:00:00 [facility] Influenza Virus 2019-11-24 Completed [facility] Vaccine 00:00:00 [facility] Influenza High Dose 2019-11-24 Completed [facility] 00:00:00 [facility] Influenza Virus 2019-11-24 Completed [facility] Vaccine 00:00:00 [facility] Influenza High Dose 2019-11-24 Completed [facility] 00:00:00 [facility] Influenza Virus 2019-11-24 Completed [facility] Vaccine 00:00:00 [facility] Influenza High Dose 2019-11-24 Completed [facility] 00:00:00 [facility] Influenza Virus 2019-11-24 Completed [facility] Vaccine 00:00:00 [facility] Influenza High Dose 2019-11-24 Completed [facility] 00:00:00 [facility] Influenza Virus 2019-11-24 Completed [facility] Vaccine 00:00:00 [facility] Influenza High Dose 2019-11-24 Completed [facility] 00:00:00 [facility] Influenza Virus 2019-11-24 Completed [facility] Vaccine 00:00:00 [facility] Influenza High Dose 2019-11-24 Completed [facility] 00:00:00 [facility] Influenza Virus 2019-11-24 Completed [facility] Vaccine 00:00:00 [facility] Influenza High Dose 2019-11-24 Completed [facility] 00:00:00 [facility] Influenza Virus 2019-11-24 Completed [facility] Vaccine 00:00:00 [facility] Influenza High Dose 2019-11-24 Completed [facility] 00:00:00 [facility] Influenza Virus 2019-11-24 Completed [facility] Vaccine 00:00:00 [facility] Influenza High Dose 2019-11-24 Completed [facility] 00:00:00 [facility] Influenza Virus 2019-11-24 Completed [facility] Vaccine 00:00:00 [facility] Influenza High Dose 2019-11-24 Completed [facility] 00:00:00 [facility] Influenza Virus 2019-11-24 Completed [facility] Vaccine 00:00:00 [facility] Influenza High Dose 2019-11-24 Completed [facility] 00:00:00 [facility] Influenza Virus 2019-11-24 Completed [facility] Vaccine 00:00:00 [facility] Influenza High Dose 2019-11-24 Completed [facility] 00:00:00 [facility] Influenza Virus 2019-11-24 Completed [facility] Vaccine 00:00:00 [facility] Influenza High Dose 2019-11-24 Completed [facility] 00:00:00 [facility] Influenza Virus 2019-11-24 Completed [facility] Vaccine 00:00:00 [facility] Influenza High Dose 2019-11-24 Completed [facility] 00:00:00 [facility] Influenza Virus 2019-11-24 Completed [facility] Vaccine 00:00:00 [facility] Influenza High Dose 2019-11-24 Completed [facility] 00:00:00 [facility] Influenza Virus 2019-11-24 Completed [facility] Vaccine 00:00:00 [facility] Influenza High Dose 2019-11-24 Completed [facility] 00:00:00 [facility] Influenza Virus 2019-11-24 Completed [facility] Vaccine 00:00:00 [facility] Influenza High Dose 2019-11-24 Completed [facility] 00:00:00 [facility] Influenza Virus 2019-11-24 Completed [facility] Vaccine 00:00:00 [facility] Influenza High Dose 2019-11-24 Completed [facility] 00:00:00 [facility] Influenza Virus 2019-11-24 Completed [facility] Vaccine 00:00:00 [facility] Influenza High Dose 2019-11-24 Completed [facility] 00:00:00 [facility] Influenza Virus 2019-11-24 Completed [facility] Vaccine 00:00:00 [facility] Influenza High Dose 2019-11-24 Completed [facility] 00:00:00 [facility] Influenza Virus 2019-11-24 Completed [facility] Vaccine 00:00:00 [facility] Influenza High Dose 2019-11-24 Completed [facility] 00:00:00 [facility] Influenza Virus 2019-11-24 Completed [facility] Vaccine 00:00:00 [facility] Influenza High Dose 2019-11-24 Completed [facility] 00:00:00 [facility] Influenza Virus 2019-11-24 Completed [facility] Vaccine 00:00:00 [facility] Influenza High Dose 2019-11-24 Completed [facility] 00:00:00 [facility] Influenza Virus 2019-11-24 Completed [facility] Vaccine 00:00:00 [facility] Influenza High Dose 2019-11-24 Completed [facility] 00:00:00 [facility] Influenza Virus 2019-11-24 Completed [facility] Vaccine 00:00:00 [facility] Influenza High Dose 2019-11-24 Completed [facility] 00:00:00 [facility] Influenza Virus 2019-11-24 Completed [facility] Vaccine 00:00:00 [facility] Influenza High Dose 2019-11-24 Completed [facility] 00:00:00 [facility] Influenza Virus 2019-11-24 Completed [facility] Vaccine 00:00:00 [facility] Influenza High Dose 2019-11-24 Completed [facility] 00:00:00 [facility] Influenza Virus 2019-11-24 Completed [facility] Vaccine 00:00:00 [facility] Influenza High Dose 2019-11-24 Completed [facility] 00:00:00 [facility] Influenza Virus 2019-11-24 Completed [facility] Vaccine 00:00:00 [facility] Influenza High Dose 2019-11-24 Completed [facility] 00:00:00 [facility] Influenza Virus 2019-11-24 Completed [facility] Vaccine 00:00:00 [facility] Influenza High Dose 2019-11-24 Completed [facility] 00:00:00 [facility] Influenza Virus 2019-11-24 Completed [facility] Vaccine 00:00:00 [facility] Influenza High Dose 2019-11-24 Completed [facility] 00:00:00 [facility] Influenza Virus 2019-11-24 Completed [facility] Vaccine 00:00:00 [facility] Influenza High Dose 2019-11-24 Completed [facility] 00:00:00 [facility] Influenza Virus 2019-11-24 Completed [facility] Vaccine 00:00:00 [facility] Influenza High Dose 2019-11-24 Completed [facility] 00:00:00 [facility] Influenza Virus 2019-11-24 Completed [facility]00 [facility] Influenza High Dose 2019-11-24 Completed [facility]00[facility]00 [facility] [place] Influenza Virus 2019-11-24 Completed [facility] Vacc[facility] 00:00:00 [facility] [place] Influenza High Dose 2019-11-24 Completed [facility] 00[facility]00:00 [facility] [place] Influenza Virus 2019-11-24 Completed [facility] Vacc[facility] 00:00:00 [facility] [place] Influenza High Dose 2019-11-24 Completed [facility] 00[facility]00:00 [facility] [place] Influenza Virus 2019-11-24 Completed [facility] Vaccine 00:00:00 [facility] [place] Influenza High Dose 2019-11-24 Completed [facility] 00:00:00 [facility] [place] Influenza Virus 2019-11-24 Completed [facility] Vacc[facility] 00:00:00 [facility] [place] Influenza High Dose 2019-11-24 Completed [facility] 00:00:00 [facility] [place] Influenza Virus 2019-11-24 Completed [facility] Vaccine 00:00:00 [facility] [place] Influenza High Dose 2019-11-24 Completed [facility] 00:00:00 [facility] [place] Influenza Virus 2019-11-24 Completed [facility] Vacc[facility] 00:00:00 [facility] [place] Influenza High Dose 2019-11-24 Completed [facility] 00:00:00 [facility] [place] Influenza Virus 2019-11-24 Completed [facility] Vaccine 00:00:00 [facility] [place] Influenza High Dose 2019-11-24 Completed [facility] 00:00:00 [facility] [place] Influenza Virus 2019-11-24 Completed [facility] Vacc[facility] 00:00:00 [facility] [place] Influenza High Dose 2019-11-24 Completed [facility] 00:00:00 [facility] [place] Influenza Virus 2019-11-24 Completed [facility] Vacc[facility] 00:00:00 [facility] [place] Influenza High Dose 2019-11-24 Completed [facility] 00:00:00 [facility] [place] Influenza Virus 2019-11-24 Completed [facility] Vaccine 00:00:00 [facility] [place] Influenza High Dose 2019-11-24 Completed [facility] 00:00:00 [facility] [place] Influenza Virus 2019-11-24 Completed [facility] Vaccine 00:00:00 [facility] [place] Influenza High Dose 2019-11-24 Completed [facility] 00:00:00 [facility] [place] Influenza Virus 2019-11-24 Completed [facility] Vaccine 00:00:00 [facility] [place] Influenza High Dose 2019-11-24 Completed [facility] 00:00:00 [facility] [place] Influenza Virus 2019-11-24 Completed [facility] Vaccine 00:00:00 [facility] [place] Influenza High Dose 2019-11-24 Completed [facility] 00:00:00 [facility] [place] Influenza Virus 2019-11-24 Completed [facility] Vaccine 00:00:00 [facility] [place] Influenza High Dose 2019-11-24 Completed [facility] 00:00:00 [facility] [place] Influenza Virus 2019-11-24 Completed [facility] Vaccine 00:00:00 [facility] [place] Influenza High Dose 2019-11-24 Completed [facility] 00:00:00 [facility] [place] Influenza Virus 2019-11-24 Completed [facility] Vaccine 00:00:00 [facility] [place] Influenza High Dose 2019-11-24 Completed [facility] 00:00:00 [facility] [place] Influenza Virus 2019-11-24 Completed [facility] Vaccine 00:00:00 [facility] [place] Influenza High Dose 2019-11-24 Completed [facility] 00:00:00 [facility] [place] Influenza Virus 2019-11-24 Completed [facility] Vaccine 00:00:00 [facility] [place] Influenza High Dose 2019-11-24 Completed [facility] 00:00:00 [facility] [place] Influenza Virus 2019-11-24 Completed [facility] Vaccine 00:00:00 [facility] [place] Influenza High Dose 2019-11-24 Completed [facility] 00:00:00 [facility] [place] Influenza Virus 2019-11-24 Completed [facility] Vaccine 00:00:00 [facility] [place] Influenza High Dose 2019-11-24 Completed [facility] 00:00:00 [facility] [place] Influenza Virus 2019-11-24 Completed [facility] Vaccine 00:00:00 [facility] [place] Influenza High Dose 2019-11-24 Completed [facility] 00:00:00 [facility] [place] Influenza Virus 2019-11-24 Completed [facility] Vaccine 00:00:00 [facility] [place] Influenza High Dose 2019-11-24 Completed [facility] 00:00:00 [facility] [place] Influenza Virus 2019-11-24 Completed [facility] Vaccine 00:00:00 [facility] [place] Influenza High Dose 2019-11-24 Completed [facility] 00:00:00 [facility] [place] Influenza Virus 2019-11-24 Completed [facility] Vaccine 00:00:00 [facility] [place] Influenza High Dose 2019-11-24 Completed [facility] 00:00:00 [facility] [place] Influenza Virus 2019-11-24 Completed [facility] Vaccine 00:00:00 [facility] [place] Influenza High Dose 2019-11-24 Completed [facility] 00:00:00 [facility] [place] Influenza Virus 2019-11-24 Completed [facility] Vaccine 00:00:00 [facility] [place] Influenza High Dose 2019-11-24 Completed [facility] 00:00:00 [facility] [place] Influenza Virus 2019-11-24 Completed [facility] Vaccine 00:00:00 [facility] [place] Influenza High Dose 2019-11-24 Completed [facility] 00:00:00 [facility] [place] Influenza Virus 2019-11-24 Completed [facility] Vaccine 00:00:00 [facility] [place] Influenza High Dose 2019-11-24 Completed [facility] 00:00:00 [facility] [place] Influenza Virus 2019-11-24 Completed [facility] Vaccine 00:00:00 [facility] [place] Influenza High Dose 2019-11-24 Completed [facility] 00:00:00 [facility] [place] Influenza Virus 2019-11-24 Completed [facility] Vaccine 00:00:00 [facility] [place] Influenza High Dose 2019-11-24 Completed [facility] 00:00:00 [facility] [place] Influenza Virus 2019-11-24 Completed [facility] Vaccine 00:00:00 [facility] [place] Influenza High Dose 2019-11-24 Completed [facility] 00:00:00 [facility] [place] Influenza Virus 2019-11-24 Completed [facility] Vaccine 00:00:00 [facility] [place] Influenza High Dose 2019-11-24 Completed [facility] 00:00:00 [facility] [place] Influenza Virus 2019-11-24 Completed [facility] Vaccine 00:00:00 [facility] [place] Influenza High Dose 2019-11-24 Completed [facility] 00:00:00 [facility] [place] Influenza Virus 2019-11-24 Completed [facility] Vaccine 00:00:00 [facility] [place] Influenza High Dose 2019-11-24 Completed [facility] 00:00:00 [facility] [place] Influenza Virus 2019-11-24 Completed [facility] Vaccine 00:00:00 [facility] [place] Influenza High Dose 2019-11-24 Completed [facility] 00:00:00 [facility] [place] Influenza Virus 2019-11-24 Completed [facility] Vaccine 00:00:00 [facility] [place] Influenza High Dose 2019-11-24 Completed [facility] 00:00:00 [facility] [place] Influenza Virus 2019-11-24 Completed [facility] Vaccine 00:00:00 [facility] [place] Influenza High Dose 2019-11-24 Completed [facility] 00:00:00 [facility] [place] Influenza Virus 2019-11-24 Completed [facility] Vaccine 00:00:00 [facility] [place] Influenza High Dose 2019-11-24 Completed [facility] 00:00:00 [facility] [place] Influenza Virus 2019-11-24 Completed [facility] Vaccine 00:00:00 [facility] [place] Influenza High Dose 2019-11-24 Completed [facility] 00:00:00 [facility] [place] Influenza Virus 2019-11-24 Completed [facility] Vaccine 00:00:00 [facility] [place] Influenza High Dose 2019-11-24 Completed [facility] 00:00:00 [facility] [place] Influenza Virus 2019-11-24 Completed [facility] Vaccine 00:00:00 [facility] [place] Influenza High Dose 2019-11-24 Completed [facility] 00:00:00 [facility] [place] Influenza Virus 2019-11-24 Completed [facility] Vaccine 00:00:00 [facility] [place] Influenza High Dose 2019-11-24 Completed [facility] 00:00:00 [facility] [place] Influenza Virus 2019-11-24 Completed [facility] Vaccine 00:00:00 [facility] [place] Influenza High Dose 2019-11-24 Completed [facility] 00:00:00 [facility] [place] Influenza Virus 2019-11-24 Completed [facility] Vaccine 00:00:00 [facility] [place] Influenza High Dose 2019-01-20 Completed [facility] 00:00:00 [facility] [place] Influenza High Dose 2019-01-20 Completed [facility] 00:00:00 [facility] [place] Influenza High Dose 2019-01-20 Completed [facility] 00:00:00 [facility] [place] Influenza High Dose 2019-01-20 Completed [facility] 00:00:00 [facility] [place] Influenza High Dose 2019-01-20 Completed [facility] 00:00:00 [facility] [place] Influenza High Dose 2019-01-20 Completed [facility] 00:00:00 [facility] [place] Influenza High Dose 2019-01-20 Completed [facility] 00:00:00 [facility] [place] Influenza High Dose 2019-01-20 Completed [facility] 00:00:00 [facility] [place] Influenza High Dose 2019-01-20 Completed [facility] 00:00:00 [facility] [place] Influenza High Dose 2019-01-20 Completed [facility] 00:00:00 [facility] [place] Influenza High Dose 2019-01-20 Completed [facility] 00:00:00 [facility] [place] Influenza High Dose 2019-01-20 Completed [facility] 00:00:00 [facility] [place] Influenza High Dose 2019-01-20 Completed [facility] 00:00:00 [facility] [place] Influenza High Dose 2019-01-20 Completed [facility] 00:00:00 [facility] [place] Influenza High Dose 2019-01-20 Completed [facility] 00:00:00 [facility] [place] Influenza High Dose 2019-01-20 Completed [facility] 00:00:00 [facility] [place] Influenza High Dose 2019-01-20 Completed [facility] 00:00:00 [facility] [place] Influenza High Dose 2019-01-20 Completed [facility] 00:00:00 [facility] [place] Influenza High Dose 2019-01-20 Completed [facility] 00:00:00 [facility] Influenza High Dose 2019-01-20 Completed [facility] 00:00:00 [facility] [place] Influenza High Dose 2019-01-20 Completed [facility] 00:00:00 [facility] Influenza High Dose 2019-01-20 Completed [facility] 00:00:00 [facility] [place] Influenza High Dose 2019-01-20 Completed [facility] 00:00:00 [facility] [place] Influenza High Dose 2019-01-20 Completed [facility] 00:00:00 [facility] [place] Influenza High Dose 2019-01-20 Completed [facility] 00:00:00 [facility] [place] Influenza High Dose 2019-01-20 Completed [facility] 00:00:00 [facility] Influenza High Dose 2019-01-20 Completed [facility] 00:00:00 [facility] Influenza High Dose 2019-01-20 Completed [facility] 00:00:00 [facility] [place] Influenza High Dose 2019-01-20 Completed [facility] 00:00:00 [facility] [place] Influenza High Dose 2019-01-20 Completed [facility] 00:00:00 [facility] [place] Influenza High Dose 2019-01-20 Completed [facility] 00:00:00 [facility] Influenza High Dose 2019-01-20 Completed [facility] 00:00:00 [facility] Influenza High Dose 2019-01-20 Completed [facility] 00:00:00 [facility] Influenza High Dose 2019-01-20 Completed [facility] 00:00:00 [facility] Influenza High Dose 2019-01-20 Completed [facility] 00:00:00 [facility] Influenza High Dose 2019-01-20 Completed [facility] 00:00:00 [facility] Influenza High Dose 2019-01-20 Completed [facility] 00:00:00 [facility] Influenza High Dose 2019-01-20 Completed [facility] 00:00:00 [facility] [place] Influenza High Dose 2019-01-20 Completed [facility] 00:00:00 [facility] Influenza High Dose 2019-01-20 Completed [facility] 00:00:00 [facility] [place] Influenza High Dose 2019-01-20 Completed [facility] 00:00:00 [facility] Influenza High Dose 2019-01-20 Completed [facility] 00:00:00 [facility] Influenza High Dose 2019-01-20 Completed [facility] 00:00:00 [facility] [place] Influenza High Dose 2019-01-20 Completed [facility] 00:00:00 [facility] [place] Influenza High Dose 2019-01-20 Completed [facility] 00:00:00 [facility] [place] Influenza High Dose 2019-01-20 Completed [facility] 00:00:00 [facility] [place] Influenza High Dose 2019-01-20 Completed [facility] 00:00:00 [facility] [place] Influenza High Dose 2019-01-20 Completed [facility] 00:00:00 [facility] [place] Influenza High Dose 2019-01-20 Completed [facility] 00:00:00 [facility] [place] Influenza High Dose 2019-01-20 Completed [facility] 00:00:00 [facility] [place] Influenza High Dose 2019-01-20 Completed [facility] 00:00:00 [facility] [place] Influenza High Dose 2019-01-20 Completed [facility] 00:00:00 [facility] Influenza High Dose 2019-01-20 Completed [facility] 00:00:00 [facility] Influenza High Dose 2019-01-20 Completed [facility] 00:00:00 [facility] Influenza High Dose 2019-01-20 Completed [facility] 00:00:00 [facility] Influenza High Dose 2019-01-20 Completed [facility] 00:00:00 [facility] [place] Influenza High Dose 2019-01-20 Completed [facility] 00:00:00 [facility] Influenza High Dose 2019-01-20 Completed [facility] 00:00:00 [facility] Influenza High Dose 2019-01-20 Completed [facility] 00:00:00 [facility] Influenza High Dose 2019-01-20 Completed [facility] 00:00:00 [facility] Influenza High Dose 2019-01-20 Completed [facility] 00:00:00 [facility] Influenza High Dose 2019-01-20 Completed [facility] 00:00:00 [facility] [place] Influenza High Dose 2019-01-20 Completed [facility] 00:00:00 [facility] Influenza High Dose 2019-01-20 Completed [facility] 00:00:00 [facility] Influenza High Dose 2019-01-20 Completed [facility] 00:00:00 [facility] Influenza High Dose 2019-01-20 Completed [facility] 00:00:00 [facility] Influenza High Dose 2019-01-20 Completed [facility] 00:00:00 [facility] Influenza High Dose 2019-01-20 Completed [facility] 00:00:00 [facility] Influenza High Dose 2019-01-20 Completed [facility] 00:00:00 [facility] Influenza High Dose 2019-01-20 Completed [facility] 00:00:00 [facility] Influenza High Dose 2019-01-20 Completed [facility] 00:00:00 [facility] Influenza High Dose 2019-01-20 Completed [facility] 00:00:00 [facility] Influenza High Dose 2019-01-20 Completed [facility] 00:00:00 [facility] Influenza High Dose 2019-01-20 Completed [facility] 00:00:00 [facility] Influenza High Dose 2019-01-20 Completed [facility] 00:00:00 [facility] Influenza High Dose 2019-01-20 Completed [facility] 00:00:00 [facility] Influenza High Dose 2019-01-20 Completed [facility] 00:00:00 [facility] Influenza High Dose 2019-01-20 Completed [facility] 00:00:00 [facility] Influenza High Dose 2019-01-20 Completed [facility] 00:00:00 [facility] Influenza High Dose 2019-01-20 Completed [facility] 00:00:00 [facility] Influenza High Dose 2019-01-20 Completed [facility] 00:00:00 [facility] Influenza High Dose 2019-01-20 Completed [facility] 00:00:00 [facility] Influenza High Dose 2019-01-20 Completed [facility] 00:00:00 [facility] Influenza High Dose 2019-01-20 Completed [facility] 00:00:00 [facility] Influenza High Dose 2019-01-20 Completed [facility] 00:00:00 [facility] Influenza High Dose 2019-01-20 Completed [facility] 00:00:00 [facility] Influenza High Dose 2019-01-20 Completed [facility] 00:00:00 [facility] Influenza High Dose 2019-01-20 Completed [facility] 00:00:00 [facility] Influenza High Dose 2019-01-20 Completed [facility] 00:00:00 [facility] Influenza High Dose 2019-01-20 Completed [facility] 00:00:00 [facility] Influenza High Dose 2019-01-20 Completed [facility] 00:00:00 [facility] Influenza High Dose 2019-01-20 Completed [facility] 00:00:00 [facility] Influenza High Dose 2019-01-20 Completed [facility] 00:00:00 [facility] Influenza High Dose 2019-01-20 Completed [facility] 00:00:00 [facility] Influenza High Dose 2019-01-20 Completed [facility] 00:00:00 [facility] Influenza High Dose 2019-01-20 Completed [facility] 00:00:00 [facility] Influenza High Dose 2019-01-20 Completed [facility] 00:00:00 [facility] Influenza High Dose 2019-01-20 Completed [facility] 00:00:00 [facility] Influenza High Dose 2019-01-20 Completed [facility] 00:00:00 [facility] Influenza High Dose 2019-01-20 Completed [facility] 00:00:00 [facility] Influenza High Dose 2019-01-20 Completed [facility] 00:00:00 [facility] Influenza High Dose 2019-01-20 Completed [facility] 00:00:00 [facility] Influenza High Dose 2019-01-20 Completed [facility] 00:00:00 [facility] Influenza High Dose 2019-01-20 Completed [facility] 00:00:00 [facility] Influenza High Dose 2019-01-20 Completed [facility] 00:00:00 [facility] Influenza High Dose 2019-01-20 Completed [facility] 00:00:00 [facility] [place] Influenza High Dose 2019-01-20 Completed [facility] 00:00:00 [facility] Influenza High Dose 2019-01-20 Completed [facility] 00:00:00 [facility] [place] Influenza High Dose 2019-01-20 Completed [facility] 00:00:00 [facility] [place] Influenza High Dose 2019-01-20 Completed [facility] 00:00:00 [facility] [place] Influenza High Dose 2019-01-20 Completed [facility] 00:00:00 [facility] Influenza High Dose 2019-01-20 Completed [facility] 00:00:00 [facility] [place] Influenza High Dose 2019-01-20 Completed [facility] 00:00:00 [facility] [place] Influenza High Dose 2019-01-20 Completed [facility] 00:00:00 [facility] [place] Influenza High Dose 2019-01-20 Completed [facility] 00:00:00 [facility] [place] Influenza High Dose 2019-01-20 Completed [facility] 00:00:00 [facility] [place] Influenza High Dose 2019-01-20 Completed [facility] 00:00:00 [facility] [place] Influenza High Dose 2019-01-20 Completed [facility] 00:00:00 [facility] [place] Influenza High Dose 2019-01-20 Completed [facility] 00:00:00 [facility] [place] Influenza High Dose 2018-05-08 Completed [facility] 00:00:00 [facility] Pneumococcal 2018-05-08 Completed [facility] f Polysaccharide, 00:00:00 [facility] PPSV23 (PNEUMOVAX) Branch Influenza High Dose 2018-05-08 Completed [facility] 00:00:00 [facility] Pneumococcal 2018-05-08 Completed [facility] Polysaccharide, 00:00:00 [place] [facility] PPSV23 (PNEUMOVAX) Branch Influenza High Dose 2018-05-08 Completed [facility] 00:00:00 [facility] Pneumococcal 2018-05-08 Completed [facility] Polysaccharide, 00:00:00 [place] [facility] PPSV23 (PNEUMOVAX) Branch Influenza High Dose 2018-05-08 Completed [facility] 00:00:00 [facility] Pneumococcal 2018-05-08 Completed [facility] Polysaccharide, 00:00:00 [place] [facility] PPSV23 (PNEUMOVAX) Branch Influenza High Dose 2018-05-08 Completed [facility] 00:00:00 [facility] Pneumococcal 2018-05-08 Completed [facility] Polysaccharide, 00:00:00 [place] [facility] PPSV23 (PNEUMOVAX) Branch Influenza High Dose 2018-05-08 Completed [facility] 00:00:00 [facility] Pneumococcal 2018-05-08 Completed [facility] Polysaccharide, 00:00:00 [place] [facility] PPSV23 (PNEUMOVAX) Branch Influenza High Dose 2018-05-08 Completed [facility] 00:00:00 [facility] Pneumococcal 2018-05-08 Completed [facility] Polysaccharide, 00:00:00 [place] [facility] PPSV23 (PNEUMOVAX) Branch Influenza High Dose 2018-05-08 Completed [facility] 00:00:00 [facility] Pneumococcal 2018-05-08 Completed [facility] Polysaccharide, 00:00:00 [place] [facility] PPSV23 (PNEUMOVAX) Branch Influenza High Dose 2018-05-08 Completed [facility] 00:00:00 [facility] Pneumococcal 2018-05-08 Completed [facility] Polysaccharide, 00:00:00 [place] [facility] PPSV23 (PNEUMOVAX) Branch Influenza High Dose 2018-05-08 Completed [facility] 00:00:00 [facility] Pneumococcal 2018-05-08 Completed [facility] Polysaccharide, 00:00:00 [place] [facility] PPSV23 (PNEUMOVAX) Branch Influenza High Dose 2018-05-08 Completed [facility] 00:00:00 [facility] Pneumococcal 2018-05-08 Completed [facility] Polysaccharide, 00:00:00 [place] [facility] PPSV23 (PNEUMOVAX) Branch Influenza High Dose 2018-05-08 Completed [facility] 00:00:00 [facility] Pneumococcal 2018-05-08 Completed [facility] Polysaccharide, 00:00:00 [place] [facility] PPSV23 (PNEUMOVAX) Branch Influenza High Dose 2018-05-08 Completed [facility] 00:00:00 [facility] Pneumococcal 2018-05-08 Completed [facility] Polysaccharide, 00:00:00 [place] [facility] PPSV23 (PNEUMOVAX) Branch Influenza High Dose 2018-05-08 Completed [facility] 00:00:00 [facility] Pneumococcal 2018-05-08 Completed [facility] Polysaccharide, 00:00:00 [place] [facility] PPSV23 (PNEUMOVAX) Branch Influenza High Dose 2018-05-08 Completed [facility] 00:00:00 [facility] Pneumococcal 2018-05-08 Completed [facility] Polysaccharide, 00:00:00 [place] [facility] PPSV23 (PNEUMOVAX) Branch Influenza High Dose 2018-05-08 Completed [facility] 00:00:00 [facility] Pneumococcal 2018-05-08 Completed [facility] Polysaccharide, 00:00:00 [place] [facility] PPSV23 (PNEUMOVAX) Branch Influenza High Dose 2018-05-08 Completed [facility] 00:00:00 [facility] Pneumococcal 2018-05-08 Completed [facility] Polysaccharide, 00:00:00 [place] [facility] PPSV23 (PNEUMOVAX) Branch Influenza High Dose 2018-05-08 Completed [facility] 00:00:00 [facility] Pneumococcal 2018-05-08 Completed [facility] Polysaccharide, 00:00:00 [place] [facility] PPSV23 (PNEUMOVAX) Branch Influenza High Dose 2018-05-08 Completed [facility] 00:00:00 [facility] Pneumococcal 2018-05-08 Completed [facility] Polysaccharide, 00:00:00 [place] [facility] PPSV23 (PNEUMOVAX) Branch Influenza High Dose 2018-05-08 Completed [facility] 00:00:00 [facility] Pneumococcal 2018-05-08 Completed [facility] Polysaccharide, 00:00:00 [place] [facility] PPSV23 (PNEUMOVAX) Branch Influenza High Dose 2018-05-08 Completed [facility] 00:00:00 [facility] Pneumococcal 2018-05-08 Completed [facility] Polysaccharide, 00:00:00 [place] [facility] PPSV23 (PNEUMOVAX) Branch Influenza High Dose 2018-05-08 Completed [facility] 00:00:00 [facility] Pneumococcal 2018-05-08 Completed [facility] Polysaccharide, 00:00:00 [place] [facility] PPSV23 (PNEUMOVAX) Branch Influenza High Dose 2018-05-08 Completed [facility] 00:00:00 [facility] [place] Pneumococcal 2018-05-08 Completed [facility] Polysaccharide, 00:00:00 [place] [facility] PPSV23 (PNEUMOVAX) Branch Influenza High Dose 2018-05-08 Completed [facility] 00:00:00 [facility] Pneumococcal 2018-05-08 Completed [facility] Polysaccharide, 00:00:00 [place] [facility] PPSV23 (PNEUMOVAX) Branch Influenza High Dose 2018-05-08 Completed [facility] 00:00:00 [facility] Pneumococcal 2018-05-08 Completed [facility] Polysaccharide, 00:00:00 [place] [facility] PPSV23 (PNEUMOVAX) Branch Influenza High Dose 2018-05-08 Completed [facility] 00:00:00 [facility] Pneumococcal 2018-05-08 Completed [facility] Polysaccharide, 00:00:00 [place] [facility] PPSV23 (PNEUMOVAX) Branch Influenza High Dose 2018-05-08 Completed [facility] 00:00:00 [facility] Pneumococcal 2018-05-08 Completed [facility] Polysaccharide, 00:00:00 [place] [facility] PPSV23 (PNEUMOVAX) Branch Influenza High Dose 2018-05-08 Completed [facility] 00:00:00 [facility] Pneumococcal 2018-05-08 Completed [facility] Polysaccharide, 00:00:00 [place] [facility] PPSV23 (PNEUMOVAX) Branch Influenza High Dose 2018-05-08 Completed [facility] 00:00:00 [facility] Pneumococcal 2018-05-08 Completed [facility] Polysaccharide, 00:00:00 [place] [facility] PPSV23 (PNEUMOVAX) Branch Influenza High Dose 2018-05-08 Completed [facility] 00:00:00 [facility] Pneumococcal 2018-05-08 Completed [facility] Polysaccharide, 00:00:00 [place] [facility] PPSV23 (PNEUMOVAX) Branch Influenza High Dose 2018-05-08 Completed [facility] 00:00:00 [facility] Pneumococcal 2018-05-08 Completed [facility] Polysaccharide, 00:00:00 [place] [facility] PPSV23 (PNEUMOVAX) Branch Influenza High Dose 2018-05-08 Completed [facility] 00:00:00 [facility] Pneumococcal 2018-05-08 Completed [facility] Polysaccharide, 00:00:00 [place] [facility] PPSV23 (PNEUMOVAX) Branch Influenza High Dose 2018-05-08 Completed [facility] 00:00:00 [facility] Pneumococcal 2018-05-08 Completed [facility] Polysaccharide, 00:00:00 [place] [facility] PPSV23 (PNEUMOVAX) Branch Influenza High Dose 2018-05-08 Completed [facility] 00:00:00 [facility] Pneumococcal 2018-05-08 Completed [facility] Polysaccharide, 00:00:00 [place] [facility] PPSV23 (PNEUMOVAX) Branch Influenza High Dose 2018-05-08 Completed [facility] 00:00:00 [facility] Pneumococcal 2018-05-08 Completed [facility] Polysaccharide, 00:00:00 [place] [facility] PPSV23 (PNEUMOVAX) Branch Influenza High Dose 2018-05-08 Completed [facility] 00:00:00 [facility] Pneumococcal 2018-05-08 Completed [facility] Polysaccharide, 00:00:00 [place] [facility] PPSV23 (PNEUMOVAX) Branch Influenza High Dose 2018-05-08 Completed [facility] 00:00:00 [facility] Pneumococcal 2018-05-08 Completed [facility] Polysaccharide, 00:00:00 [place] [facility] PPSV23 (PNEUMOVAX) Branch Influenza High Dose 2018-05-08 Completed [facility] 00:00:00 [facility] Pneumococcal 2018-05-08 Completed [facility] Polysaccharide, 00:00:00 [place] [facility] PPSV23 (PNEUMOVAX) Branch Influenza High Dose 2018-05-08 Completed [facility] 00:00:00 [facility] Pneumococcal 2018-05-08 Completed [facility] Polysaccharide, 00:00:00 [place] [facility] PPSV23 (PNEUMOVAX) Branch Influenza High Dose 2018-05-08 Completed [facility] 00:00:00 [facility] Pneumococcal 2018-05-08 Completed [facility] Polysaccharide, 00:00:00 [place] [facility] PPSV23 (PNEUMOVAX) Branch Influenza High Dose 2018-05-08 Completed [facility] 00:00:00 [facility] Pneumococcal 2018-05-08 Completed [facility] Polysaccharide, 00:00:00 [place] [facility] PPSV23 (PNEUMOVAX) Branch Influenza High Dose 2018-05-08 Completed [facility] 00:00:00 [facility] Pneumococcal 2018-05-08 Completed [facility] Polysaccharide, 00:00:00 [place] [facility] PPSV23 (PNEUMOVAX) Branch Influenza High Dose 2018-05-08 Completed [facility] 00:00:00 [facility] Pneumococcal 2018-05-08 Completed [facility] Polysaccharide, 00:00:00 [place] [facility] PPSV23 (PNEUMOVAX) Branch Influenza High Dose 2018-05-08 Completed [facility] 00:00:00 [facility] Pneumococcal 2018-05-08 Completed [facility] Polysaccharide, 00:00:00 [place] [facility] PPSV23 (PNEUMOVAX) Branch Influenza High Dose 2018-05-08 Completed [facility] 00:00:00 [facility] Pneumococcal 2018-05-08 Completed [facility] Polysaccharide, 00:00:00 [place] [facility] PPSV23 (PNEUMOVAX) Branch Influenza High Dose 2018-05-08 Completed [facility] 00:00:00 [facility] Pneumococcal 2018-05-08 Completed [facility] Polysaccharide, 00:00:00 [place] [facility] PPSV23 (PNEUMOVAX) Branch Influenza High Dose 2018-05-08 Completed [facility] 00:00:00 [facility] Pneumococcal 2018-05-08 Completed [facility] Polysaccharide, 00:00:00 [place] [facility] PPSV23 (PNEUMOVAX) Branch Influenza High Dose 2018-05-08 Completed [facility] 00:00:00 [facility] Pneumococcal 2018-05-08 Completed [facility] Polysaccharide, 00:00:00 [place] [facility] PPSV23 (PNEUMOVAX) Branch Influenza High Dose 2018-05-08 Completed [facility] 00:00:00 [facility] Pneumococcal 2018-05-08 Completed [facility] Polysaccharide, 00:00:00 [place] [facility] PPSV23 (PNEUMOVAX) Branch Influenza High Dose 2018-05-08 Completed [facility] 00:00:00 [facility] Pneumococcal 2018-05-08 Completed [facility] Polysaccharide, 00:00:00 [place] [facility] PPSV23 (PNEUMOVAX) Branch Influenza High Dose 2018-05-08 Completed [facility] 00:00:00 [facility] Pneumococcal 2018-05-08 Completed [facility] Polysaccharide, 00:00:00 [place] [facility] PPSV23 (PNEUMOVAX) Branch Influenza High Dose 2018-05-08 Completed [facility] 00:00:00 [facility] Pneumococcal 2018-05-08 Completed [facility] Polysaccharide, 00:00:00 [place] [facility] PPSV23 (PNEUMOVAX) Branch Influenza High Dose 2018-05-08 Completed [facility] 00:00:00 [facility] Pneumococcal 2018-05-08 Completed [facility] Polysaccharide, 00:00:00 [place] [facility] PPSV23 (PNEUMOVAX) Branch Influenza High Dose 2018-05-08 Completed [facility] 00:00:00 [facility] Pneumococcal 2018-05-08 Completed [facility] Polysaccharide, 00:00:00 [place] [facility] PPSV23 (PNEUMOVAX) Branch Influenza High Dose 2018-05-08 Completed [facility] 00:00:00 [facility] Pneumococcal 2018-05-08 Completed [facility] o [facility] Polysaccharide, 00:00:00 [place] [facility] PPSV23 (PNEUMOVAX) Branch Influenza High Dose 2018-05-08 Completed [facility] 00:00:00 [facility] Pneumococcal 2018-05-08 Completed [facility] Polysaccharide, 00:00:00 [place] [facility] PPSV23 (PNEUMOVAX) Branch Influenza High Dose 2018-05-08 Completed [facility] 00:00:00 [facility] Pneumococcal 2018-05-08 Completed [facility] Polysaccharide, 00:00:00 [place] [facility] PPSV23 (PNEUMOVAX) Branch Influenza High Dose 2018-05-08 Completed [facility] 00:00:00 [facility] Pneumococcal 2018-05-08 Completed [facility] Polysaccharide, 00:00:00 [place] [facility] PPSV23 (PNEUMOVAX) Branch Influenza High Dose 2018-05-08 Completed [facility] 00:00:00 [facility] Pneumococcal 2018-05-08 Completed [facility] Polysaccharide, 00:00:00 [place] [facility] PPSV23 (PNEUMOVAX) Branch Influenza High Dose 2018-05-08 Completed [facility] 00:00:00 [facility] Pneumococcal 2018-05-08 Completed [facility] Polysaccharide, 00:00:00 [place] [facility] PPSV23 (PNEUMOVAX) Branch Influenza High Dose 2018-05-08 Completed [facility] 00:00:00 [facility] Pneumococcal 2018-05-08 Completed [facility] Polysaccharide, 00:00:00 [place] [facility] PPSV23 (PNEUMOVAX) Branch Influenza High Dose 2018-05-08 Completed [facility] 00:00:00 [facility] Pneumococcal 2018-05-08 Completed [facility] Polysaccharide, 00:00:00 [place] [facility] PPSV23 (PNEUMOVAX) Branch Influenza High Dose 2018-05-08 Completed [facility] 00:00:00 [facility] Pneumococcal 2018-05-08 Completed [facility] Polysaccharide, 00:00:00 [place] [facility] PPSV23 (PNEUMOVAX) Branch Influenza High Dose 2018-05-08 Completed [facility] 00:00:00 [facility] Pneumococcal 2018-05-08 Completed [facility] Polysaccharide, 00:00:00 [place] [facility] PPSV23 (PNEUMOVAX) Branch Influenza High Dose 2018-05-08 Completed [facility] 00:00:00 [facility] Pneumococcal 2018-05-08 Completed [facility] Polysaccharide, 00:00:00 [place] [facility] PPSV23 (PNEUMOVAX) Branch Influenza High Dose 2018-05-08 Completed [facility] 00:00:00 [facility] Pneumococcal 2018-05-08 Completed [facility] Polysaccharide, 00:00:00 [place] [facility] PPSV23 (PNEUMOVAX) Branch Influenza High Dose 2018-05-08 Completed [facility] 00:00:00 [facility] Pneumococcal 2018-05-08 Completed [facility] Polysaccharide, 00:00:00 [place] [facility] PPSV23 (PNEUMOVAX) Branch Influenza High Dose 2018-05-08 Completed [facility] 00:00:00 [facility] Pneumococcal 2018-05-08 Completed [facility] Polysaccharide, 00:00:00 [place] [facility] PPSV23 (PNEUMOVAX) Branch Influenza High Dose 2018-05-08 Completed [facility] 00:00:00 [facility] [place] Pneumococcal 2018-05-08 Completed [facility] Polysaccharide, 00:00:00 [place] [facility] PPSV23 (PNEUMOVAX) Branch Influenza High Dose 2018-05-08 Completed [facility] 00:00:00 [facility] Pneumococcal 2018-05-08 Completed [facility] Polysaccharide, 00:00:00 [place] [facility] PPSV23 (PNEUMOVAX) Branch Influenza High Dose 2018-05-08 Completed [facility] 00:00:00 [facility] Pneumococcal 2018-05-08 Completed [facility] Polysaccharide, 00:00:00 [place] [facility] PPSV23 (PNEUMOVAX) Branch Influenza High Dose 2018-05-08 Completed [facility] 00:00:00 [facility] Pneumococcal 2018-05-08 Completed [facility] Polysaccharide, 00:00:00 [place] [facility] PPSV23 (PNEUMOVAX) Branch Influenza High Dose 2018-05-08 Completed [facility] 00:00:00 [facility] Pneumococcal 2018-05-08 Completed [facility] Polysaccharide, 00:00:00 [place] [facility] PPSV23 (PNEUMOVAX) Branch Influenza High Dose 2018-05-08 Completed [facility] 00:00:00 [facility] Pneumococcal 2018-05-08 Completed [facility] Polysaccharide, 00:00:00 [place] [facility] PPSV23 (PNEUMOVAX) Branch Influenza High Dose 2018-05-08 Completed [facility] 00:00:00 [facility] Pneumococcal 2018-05-08 Completed [facility] Polysaccharide, 00:00:00 [place] [facility] PPSV23 (PNEUMOVAX) Branch Influenza High Dose 2018-05-08 Completed [facility] 00:00:00 [facility] Pneumococcal 2018-05-08 Completed [facility] Polysaccharide, 00:00:00 [place] [facility] PPSV23 (PNEUMOVAX) Branch Influenza High Dose 2018-05-08 Completed [facility] 00:00:00 [facility] Pneumococcal 2018-05-08 Completed [facility] Polysaccharide, 00:00:00 [place] [facility] PPSV23 (PNEUMOVAX) Branch Influenza High Dose 2018-05-08 Completed [facility] 00:00:00 [facility] Pneumococcal 2018-05-08 Completed [facility] Polysaccharide, 00:00:00 [place] [facility] PPSV23 (PNEUMOVAX) Branch Influenza High Dose 2018-05-08 Completed [facility] 00:00:00 [facility] Pneumococcal 2018-05-08 Completed [facility] Polysaccharide, 00:00:00 [place] [facility] PPSV23 (PNEUMOVAX) Branch Influenza High Dose 2018-05-08 Completed [facility] 00:00:00 [facility] Pneumococcal 2018-05-08 Completed [facility] Polysaccharide, 00:00:00 [place] [facility] PPSV23 (PNEUMOVAX) Branch Influenza High Dose 2018-05-08 Completed [facility] 00:00:00 [facility] Pneumococcal 2018-05-08 Completed [facility] Polysaccharide, 00:00:00 [place] [facility] PPSV23 (PNEUMOVAX) Branch Influenza High Dose 2018-05-08 Completed [facility] 00:00:00 [facility] Pneumococcal 2018-05-08 Completed [facility] Polysaccharide, 00:00:00 [place] [facility] PPSV23 (PNEUMOVAX) Branch Influenza High Dose 2018-05-08 Completed [facility] 00:00:00 [facility] Pneumococcal 2018-05-08 Completed [facility] Polysaccharide, 00:00:00 [place] [facility] PPSV23 (PNEUMOVAX) Branch Influenza High Dose 2018-05-08 Completed [facility] 00:00:00 [facility] Pneumococcal 2018-05-08 Completed [facility] Polysaccharide, 00:00:00 [place] [facility] PPSV23 (PNEUMOVAX) Branch Influenza High Dose 2018-05-08 Completed [facility] 00:00:00 [facility] Pneumococcal 2018-05-08 Completed [facility] Polysaccharide, 00:00:00 [place] [facility] PPSV23 (PNEUMOVAX) Branch Influenza High Dose 2018-05-08 Completed [facility] 00:00:00 [facility] Pneumococcal 2018-05-08 Completed [facility] Polysaccharide, 00:00:00 [place] [facility] PPSV23 (PNEUMOVAX) Branch Influenza High Dose 2018-05-08 Completed [facility] 00:00:00 [facility] Pneumococcal 2018-05-08 Completed [facility] Polysaccharide, 00:00:00 [place] [facility] PPSV23 (PNEUMOVAX) Branch Influenza High Dose 2018-05-08 Completed [facility] 00:00:00 [facility] Pneumococcal 2018-05-08 Completed [facility] o f Polysaccharide, 00:00:00 [place] [facility] PPSV23 (PNEUMOVAX) Branch Influenza High Dose 2018-05-08 Completed [facility] 00:00:00 [facility] Pneumococcal 2018-05-08 Completed [facility] f Polysaccharide, 00:00:00 [place] [facility] PPSV23 (PNEUMOVAX) Branch Influenza High Dose 2018-05-08 Completed [facility] 00:00:00 [facility] Pneumococcal 2018-05-08 Completed [facility] f Polysaccharide, 00:00:00 [place] [facility] PPSV23 (PNEUMOVAX) Branch Influenza High Dose 2018-05-08 Completed [facility] 00:00:00 [facility] Pneumococcal 2018-05-08 Completed [facility] f Polysaccharide, 00:00:00 [place] [facility] PPSV23 (PNEUMOVAX) Branch Influenza High Dose 2018-05-08 Completed [facility] 00:00:00 [facility] Pneumococcal 2018-05-08 Completed [facility] Polysaccharide, 00:00:00 [place] [facility] PPSV23 (PNEUMOVAX) Branch Influenza High Dose 2018-05-08 Completed [facility] [facility] [place] Pneumococcal 2018-05-08 Completed [facility] Polysaccharide, 00:00:00 [place] [facility] PPSV23 (PNEUMOVAX) Branch Influenza High Dose 2018-05-08 Completed [facility] of 00:00:00 [facility] [place] Pneumococcal 2018-05-08 Completed [facility] Polysaccharide, 00:00:00 [place] [facility] PPSV23 (PNEUMOVAX) Branch Influenza High Dose 2018-05-08 Completed [facility] 00:00:00 [facility] Pneumococcal 2018-05-08 Completed [facility] Polysaccharide, 00:00:00 [place] [facility] PPSV23 (PNEUMOVAX) Branch Influenza High Dose 2018-05-08 Completed [facility] 00:00:00 [facility] Pneumococcal 2018-05-08 Completed [facility] Polysaccharide, 00:00:00 [place] [facility] PPSV23 (PNEUMOVAX) Branch Influenza High Dose 2018-05-08 Completed [facility] 00:00:00 [facility] Pneumococcal 2018-05-08 Completed [facility] Polysaccharide, 00:00:00 [place] [facility] PPSV23 (PNEUMOVAX) Branch Influenza High Dose 2018-05-08 Completed [facility] 00:00:00 [facility] Pneumococcal 2018-05-08 Completed [facility] Polysaccharide, 00:00:00 [place] [facility] PPSV23 (PNEUMOVAX) Branch Influenza High Dose 2018-05-08 Completed [facility] 00:00:00 [facility] Pneumococcal 2018-05-08 Completed [facility] Polysaccharide, 00:00:00 [place] [facility] PPSV23 (PNEUMOVAX) Branch Influenza High Dose 2018-05-08 Completed [facility] 00:00:00 [facility] Pneumococcal 2018-05-08 Completed [facility] Polysaccharide, 00:00:00 [place] [facility] PPSV23 (PNEUMOVAX) Branch Influenza High Dose 2018-05-08 Completed [facility] 00:00:00 [facility] Pneumococcal 2018-05-08 Completed [facility] Polysaccharide, 00:00:00 [place] [facility] PPSV23 (PNEUMOVAX) Branch Influenza High Dose 2018-05-08 Completed [facility] 00:00:00 [facility] Pneumococcal 2018-05-08 Completed [facility] Polysaccharide, 00:00:00 [place] [facility] PPSV23 (PNEUMOVAX) Branch Influenza High Dose 2018-05-08 Completed [facility] 00:00:00 [facility] Pneumococcal 2018-05-08 Completed [facility] Polysaccharide, 00:00:00 [place] [facility] PPSV23 (PNEUMOVAX) Branch Influenza High Dose 2018-05-08 Completed [facility] 00:00:00 [facility] Pneumococcal 2018-05-08 Completed [facility] Polysaccharide, 00:00:00 [place] [facility] PPSV23 (PNEUMOVAX) Branch Influenza High Dose 2018-05-08 Completed [facility] 00:00:00 [facility] Pneumococcal 2018-05-08 Completed [facility] Polysaccharide, 00:00:00 [place] [facility] PPSV23 (PNEUMOVAX) Branch Influenza High Dose 2018-05-08 Completed [facility] 00:00:00 [facility] Pneumococcal 2018-05-08 Completed [facility] Polysaccharide, 00:00:00 [place] [facility] PPSV23 (PNEUMOVAX) Branch Influenza High Dose 2018-05-08 Completed [facility] 00:00:00 [facility] Pneumococcal 2018-05-08 Completed [facility] Polysaccharide, 00:00:00 [place] [facility] PPSV23 (PNEUMOVAX) Branch Influenza High Dose 2018-05-08 Completed [facility] 00:00:00 [facility] Pneumococcal 2018-05-08 Completed [facility] f Polysaccharide, 00:00:00 [place] [facility] PPSV23 (PNEUMOVAX) Branch Influenza High Dose 2018-05-08 Completed [facility] 00:00:00 [facility] Pneumococcal 2018-05-08 Completed [facility] Polysaccharide, 00:00:00 [place] [facility] PPSV23 (PNEUMOVAX) Branch Influenza High Dose 2018-05-08 Completed [facility] 00:00:00 [facility] Pneumococcal 2018-05-08 Completed [facility] Polysaccharide, 00:00:00 [place] [facility] PPSV23 (PNEUMOVAX) Branch Influenza High Dose 2018-05-08 Completed [facility] 00:00:00 [facility] Pneumococcal 2018-05-08 Completed [facility] f Polysaccharide, 00:00:00 [place] [facility] PPSV23 (PNEUMOVAX) Branch Influenza High Dose 2018-05-08 Completed [facility] 00:00:00 [facility] Pneumococcal 2018-05-08 Completed [facility] o [facility] Polysaccharide, 00:00:00 [place] [facility] PPSV23 (PNEUMOVAX) Branch Influenza High Dose 2018-05-08 Completed [facility] 00:00:00 [facility] Pneumococcal 2018-05-08 Completed [facility] o f Polysaccharide, 00:00:00 [place] [facility] PPSV23 (PNEUMOVAX) Branch Influenza High Dose 2018-05-08 Completed [facility] 00:00:00 [facility] Pneumococcal 2018-05-08 Completed [facility] Polysaccharide, 00:00:00 [place] [facility] PPSV23 (PNEUMOVAX) Branch Influenza High Dose 2018-05-08 Completed [facility] 00:00:00 [facility] Pneumococcal 2018-05-08 Completed [facility] f Polysaccharide, 00:00:00 [place] [facility] PPSV23 (PNEUMOVAX) Branch Influenza High Dose 2018-05-08 Completed [facility] 00:00:00 [facility] Pneumococcal 2018-05-08 Completed [facility] Polysaccharide, 00:00:00 [place] [facility] PPSV23 (PNEUMOVAX) Branch Influenza High Dose 2018-05-08 Completed [facility] 00:00:00 [facility] Pneumococcal 2018-05-08 Completed [facility] o f Polysaccharide, 00:00:00 [place] [facility] PPSV23 (PNEUMOVAX) Branch Influenza High Dose 2018-05-08 Completed [facility]ity of 00:00:00 [facility] Pneumococcal 2018-05-08 Completed [facility] o f Polysaccharide, 00:00:00 [place] [facility] PPSV23 (PNEUMOVAX) Branch Influenza High Dose 2018-05-08 Completed [facility]ity of 00:00:00 [facility] Pneumococcal 2018-05-08 Completed [facility] o [facility] Polysaccharide, 00:00:00 [place] [facility] PPSV23 (PNEUMOVAX) Branch Pneumococcal 13 2016-12-05 Completed [facility] Conjugate, PCV13 00:00:00 [place] [facility] (Prevnar 13) Branch Influenza High Dose 2016-12-05 Completed [facility] 00:00:00 [facility] Pneumococcal 13 2016-12-05 Completed [facility] Conjugate, PCV13 00:00:00 [place] [facility] (Prevnar 13) Branch Influenza High Dose 2016-12-05 Completed [facility] 00:00:00 [facility] Pneumococcal 13 2016-12-05 Completed [facility] Conjugate, PCV13 00:00:00 [place] [facility] (Prevnar 13) Branch Influenza High Dose 2016-12-05 Completed [facility] 00:00:00 [facility] Pneumococcal 13 2016-12-05 Completed [facility] Conjugate, PCV13 00:00:00 [place] [facility] (Prevnar 13) Branch Influenza High Dose 2016-12-05 Completed [facility] 00:00:00 [facility] Pneumococcal 13 2016-12-05 Completed [facility] Conjugate, PCV13 00:00:00 [place] [facility] (Prevnar 13) Branch Influenza High Dose 2016-12-05 Completed [facility] 00:00:00 [facility] Pneumococcal 13 2016-12-05 Completed [facility] Conjugate, PCV13 00:00:00 [place] [facility] (Prevnar 13) Branch Influenza High Dose 2016-12-05 Completed [facility] 00:00:00 [facility] Pneumococcal 13 2016-12-05 Completed [facility] Conjugate, PCV13 00:00:00 [place] [facility] (Prevnar 13) Branch Influenza High Dose 2016-12-05 Completed [facility] 00:00:00 [facility] Pneumococcal 13 2016-12-05 Completed [facility] Conjugate, PCV13 00:00:00 [place] [facility] (Prevnar 13) Branch Influenza High Dose 2016-12-05 Completed [facility] 00:00:00 [facility] Pneumococcal 13 2016-12-05 Completed [facility] Conjugate, PCV13 00:00:00 [place] [facility] (Prevnar 13) Branch Influenza High Dose 2016-12-05 Completed [facility] 00:00:00 [facility] Pneumococcal 13 2016-12-05 Completed [facility] Conjugate, PCV13 00:00:00 [place] [facility] (Prevnar 13) Branch Influenza High Dose 2016-12-05 Completed [facility] 00:00:00 [facility] Pneumococcal 13 2016-12-05 Completed [facility] Conjugate, PCV13 00:00:00 [place] [facility] (Prevnar 13) Branch Influenza High Dose 2016-12-05 Completed [facility] 00:00:00 [facility] Pneumococcal 13 2016-12-05 Completed [facility] Conjugate, PCV13 00:00:00 [place] [facility] (Prevnar 13) Branch Influenza High Dose 2016-12-05 Completed [facility] 00:00:00 [facility] Pneumococcal 13 2016-12-05 Completed [facility] Conjugate, PCV13 00:00:00 [place] [facility] (Prevnar 13) Branch Influenza High Dose 2016-12-05 Completed [facility] 00:00:00 [facility] Pneumococcal 13 2016-12-05 Completed [facility] Conjugate, PCV13 00:00:00 [place] [facility] (Prevnar 13) Branch Influenza High Dose 2016-12-05 Completed [facility] 00:00:00 [facility] Pneumococcal 13 2016-12-05 Completed [facility] Conjugate, PCV13 00:00:00 [place] [facility] (Prevnar 13) Branch Influenza High Dose 2016-12-05 Completed [facility] 00:00:00 [facility] Pneumococcal 13 2016-12-05 Completed [facility] Conjugate, PCV13 00:00:00 [place] [facility] (Prevnar 13) Branch Influenza High Dose 2016-12-05 Completed [facility] 00:00:00 [facility] Pneumococcal 13 2016-12-05 Completed [facility] Conjugate, PCV13 00:00:00 [place] [facility] (Prevnar 13) Branch Influenza High Dose 2016-12-05 Completed [facility]ity of 00:00:00 [facility] Pneumococcal 13 2016-12-05 Completed [facility]it y of Conjugate, PCV13 00:00:00 [place] [facility] (Prevnar 13) Branch Influenza High Dose 2016-12-05 Completed [facility]ity of 00:00:00 [facility] Pneumococcal 13 2016-12-05 Completed [facility] of Conjugate, PCV13 00:00:00 [place] [facility] (Prevnar 13) Branch Influenza High Dose 2016-12-05 Completed [facility]ity of 00:00:00 [facility] Pneumococcal 13 2016-12-05 Completed [facility] of Conjugate, PCV13 00:00:00 [place] [facility] (Prevnar 13) Branch Influenza High Dose 2016-12-05 Completed [facility] 00:00:00 [facility] Pneumococcal 13 2016-12-05 Completed [facility] Conjugate, PCV13 00:00:00 [place] [facility] (Prevnar 13) Branch Influenza High Dose 2016-12-05 Completed [facility] 00:00:00 [facility] [place] Pneumococcal 13 2016-12-05 Completed [facility] Conjugate, PCV13 00:00:00 [place] [facility] (Prevnar 13) Branch Influenza High Dose 2016-12-05 Completed [facility] 00:00:00 [facility] Pneumococcal 13 2016-12-05 Completed [facility] of Conjugate, PCV13 00:00:00 [place] [facility] (Prevnar 13) Branch Influenza High Dose 2016-12-05 Completed [facility]ity of 00:00:00 [facility] Pneumococcal 13 2016-12-05 Completed [facility] of Conjugate, PCV13 00:00:00 [place] [facility] (Prevnar 13) Branch Influenza High Dose 2016-12-05 Completed [facility]ity of 00:00:00 [facility] Pneumococcal 13 2016-12-05 Completed [facility] of Conjugate, PCV13 00:00:00 [place] [facility] (Prevnar 13) Branch Influenza High Dose 2016-12-05 Completed [facility] 00:00:00 [facility] Pneumococcal 13 2016-12-05 Completed [facility] of Conjugate, PCV13 00:00:00 [place] [facility] (Prevnar 13) Branch Influenza High Dose 2016-12-05 Completed [facility]ity of 00:00:00 [facility] Pneumococcal 13 2016-12-05 Completed [facility] y of Conjugate, PCV13 00:00:00 [place] [facility] (Prevnar 13) Branch Influenza High Dose 2016-12-05 Completed [facility]ity of 00:00:00 [facility] Pneumococcal 13 2016-12-05 Completed [facility] of Conjugate, PCV13 00:00:00 [place] [facility] (Prevnar 13) Branch Influenza High Dose 2016-12-05 Completed [facility]ity of 00:00:00 [facility] Pneumococcal 13 2016-12-05 Completed [facility] of Conjugate, PCV13 00:00:00 [place] [facility] (Prevnar 13) Branch Influenza High Dose 2016-12-05 Completed [facility]ity of 00:00:00 [facility] Pneumococcal 13 2016-12-05 Completed [facility] of Conjugate, PCV13 00:00:00 [place] [facility] (Prevnar 13) Branch Influenza High Dose 2016-12-05 Completed [facility] 00:00:00 [facility] Pneumococcal 13 2016-12-05 Completed [facility] of Conjugate, PCV13 00:00:00 [place] [facility] (Prevnar 13) Branch Influenza High Dose 2016-12-05 Completed [facility] of 00:00:00 [facility] Pneumococcal 13 2016-12-05 Completed [facility] of Conjugate, PCV13 00:00:00 [place] [facility] (Prevnar 13) Branch Influenza High Dose 2016-12-05 Completed [facility] 00:00:00 [facility] Pneumococcal 13 2016-12-05 Completed [facility] of Conjugate, PCV13 00:00:00 [place] [facility] (Prevnar 13) Branch Influenza High Dose 2016-12-05 Completed [facility] 00:00:00 [facility] Pneumococcal 13 2016-12-05 Completed [facility] of Conjugate, PCV13 00:00:00 [place] [facility] (Prevnar 13) Branch Influenza High Dose 2016-12-05 Completed [facility] 00:00:00 [facility] Pneumococcal 13 2016-12-05 Completed [facility] of Conjugate, PCV13 00:00:00 [place] [facility] (Prevnar 13) Branch Influenza High Dose 2016-12-05 Completed [facility] 00:00:00 [facility] Pneumococcal 13 2016-12-05 Completed [facility] of Conjugate, PCV13 00:00:00 [place] [facility] (Prevnar 13) Branch Influenza High Dose 2016-12-05 Completed [facility]ity of 00:00:00 [facility] Pneumococcal 13 2016-12-05 Completed [facility] y of Conjugate, PCV13 00:00:00 [place] [facility] (Prevnar 13) Branch Influenza High Dose 2016-12-05 Completed [facility]ity of 00:00:00 [facility] Pneumococcal 13 2016-12-05 Completed [facility] of Conjugate, PCV13 00:00:00 [place] [facility] (Prevnar 13) Branch Influenza High Dose 2016-12-05 Completed [facility]ity of 00:00:00 [facility] Pneumococcal 13 2016-12-05 Completed [facility] of Conjugate, PCV13 00:00:00 [place] [facility] (Prevnar 13) Branch Influenza High Dose 2016-12-05 Completed [facility] 00:00:00 [facility] Pneumococcal 13 2016-12-05 Completed [facility] of Conjugate, PCV13 00:00:00 [place] [facility] (Prevnar 13) Branch Influenza High Dose 2016-12-05 Completed [facility] of 00:00:00 [facility] Pneumococcal 13 2016-12-05 Completed [facility] of Conjugate, PCV13 00:00:00 [place] [facility] (Prevnar 13) Branch Influenza High Dose 2016-12-05 Completed [facility] 00:00:00 [facility] Pneumococcal 13 2016-12-05 Completed [facility] of Conjugate, PCV13 00:00:00 [place] [facility] (Prevnar 13) Branch Influenza High Dose 2016-12-05 Completed [facility] 00:00:00 [facility] Pneumococcal 13 2016-12-05 Completed [facility] of Conjugate, PCV13 00:00:00 [place] [facility] (Prevnar 13) Branch Influenza High Dose 2016-12-05 Completed [facility]ity of 00:00:00 [facility] Pneumococcal 13 2016-12-05 Completed [facility] of Conjugate, PCV13 00:00:00 [place] [facility] (Prevnar 13) Branch Influenza High Dose 2016-12-05 Completed [facility] of 00:00:00 [facility] Pneumococcal 13 2016-12-05 Completed [facility] of Conjugate, PCV13 00:00:00 [place] [facility] (Prevnar 13) Branch Influenza High Dose 2016-12-05 Completed [facility]ity of 00:00:00 [facility] Pneumococcal 13 2016-12-05 Completed [facility] of Conjugate, PCV13 00:00:00 [place] [facility] (Prevnar 13) Branch Influenza High Dose 2016-12-05 Completed [facility]ity of 00:00:00 [facility] Pneumococcal 13 2016-12-05 Completed [facility] of Conjugate, PCV13 00:00:00 [place] [facility] (Prevnar 13) Branch Influenza High Dose 2016-12-05 Completed [facility]ity of 00:00:00 [facility] Pneumococcal 13 2016-12-05 Completed [facility] of Conjugate, PCV13 00:00:00 [place] [facility] (Prevnar 13) Branch Influenza High Dose 2016-12-05 Completed [facility]ity of 00:00:00 [facility] Pneumococcal 13 2016-12-05 Completed [facility] of Conjugate, PCV13 00:00:00 [place] [facility] (Prevnar 13) Branch Influenza High Dose 2016-12-05 Completed [facility]ity of 00:00:00 [facility] Pneumococcal 13 2016-12-05 Completed [facility] of Conjugate, PCV13 00:00:00 [place] [facility] (Prevnar 13) Branch Influenza High Dose 2016-12-05 Completed [facility]ity of 00:00:00 [facility] Pneumococcal 13 2016-12-05 Completed [facility] of Conjugate, PCV13 00:00:00 [place] [facility] (Prevnar 13) Branch Influenza High Dose 2016-12-05 Completed [facility] 00:00:00 [facility] Pneumococcal 13 2016-12-05 Completed [facility] of Conjugate, PCV13 00:00:00 [place] [facility] (Prevnar 13) Branch Influenza High Dose 2016-12-05 Completed [facility]ity of 00:00:00 [facility] Pneumococcal 13 2016-12-05 Completed [facility] of Conjugate, PCV13 00:00:00 [place] [facility] (Prevnar 13) Branch Influenza High Dose 2016-12-05 Completed [facility]ity of 00:00:00 [facility] Pneumococcal 13 2016-12-05 Completed [facility] of Conjugate, PCV13 00:00:00 [place] [facility] (Prevnar 13) Branch Influenza High Dose 2016-12-05 Completed [facility] 00:00:00 [facility] Pneumococcal 13 2016-12-05 Completed [facility] of Conjugate, PCV13 00:00:00 [place] [facility] (Prevnar 13) Branch Influenza High Dose 2016-12-05 Completed [facility] 00:00:00 [facility] Pneumococcal 13 2016-12-05 Completed [facility] of Conjugate, PCV13 00:00:00 [place] [facility] (Prevnar 13) Branch Influenza High Dose 2016-12-05 Completed [facility] 00:00:00 [facility] Pneumococcal 13 2016-12-05 Completed [facility] of Conjugate, PCV13 00:00:00 [place] [facility] (Prevnar 13) Branch Influenza High Dose 2016-12-05 Completed [facility] 00:00:00 [facility] Pneumococcal 13 2016-12-05 Completed [facility] of Conjugate, PCV13 00:00:00 [place] [facility] (Prevnar 13) Branch Influenza High Dose 2016-12-05 Completed [facility] of 00:00:00 [facility] Pneumococcal 13 2016-12-05 Completed [facility] of Conjugate, PCV13 00:00:00 [place] [facility] (Prevnar 13) Branch Influenza High Dose 2016-12-05 Completed [facility] 00:00:00 [facility] Pneumococcal 13 2016-12-05 Completed [facility] of Conjugate, PCV13 00:00:00 [place] [facility] (Prevnar 13) Branch Influenza High Dose 2016-12-05 Completed [facility] 00:00:00 [facility] Pneumococcal 13 2016-12-05 Completed [facility] of Conjugate, PCV13 00:00:00 [place] [facility] (Prevnar 13) Branch Influenza High Dose 2016-12-05 Completed [facility] 00:00:00 [facility] Pneumococcal 13 2016-12-05 Completed [facility] of Conjugate, PCV13 00:00:00 [place] [facility] (Prevnar 13) Branch Influenza High Dose 2016-12-05 Completed [facility] 00:00:00 [facility] Pneumococcal 13 2016-12-05 Completed [facility] of Conjugate, PCV13 00:00:00 [place] [facility] (Prevnar 13) Branch Influenza High Dose 2016-12-05 Completed [facility] of 00:00:00 [facility] Pneumococcal 13 2016-12-05 Completed [facility] of Conjugate, PCV13 00:00:00 [place] [facility] (Prevnar 13) Branch Influenza High Dose 2016-12-05 Completed [facility] of 00:00:00 [facility] Pneumococcal 13 2016-12-05 Completed [facility] of Conjugate, PCV13 00:00:00 [place] [facility] (Prevnar 13) Branch Influenza High Dose 2016-12-05 Completed [facility]ity of 00:00:00 [facility] Pneumococcal 13 2016-12-05 Completed [facility] of Conjugate, PCV13 00:00:00 [place] [facility] (Prevnar 13) Branch Influenza High Dose 2016-12-05 Completed [facility] 00:00:00 [facility] [place] Pneumococcal 13 2016-12-05 Completed [facility] of Conjugate, PCV13 00:00:00 [place] [facility] (Prevnar 13) Branch Influenza High Dose 2016-12-05 Completed [facility] 00:00:00 [facility] Pneumococcal 13 2016-12-05 Completed [facility] of Conjugate, PCV13 00:00:00 [place] [facility] (Prevnar 13) Branch Influenza High Dose 2016-12-05 Completed [facility] 00:00:00 [facility] Pneumococcal 13 2016-12-05 Completed [facility] of Conjugate, PCV13 00:00:00 [place] [facility] (Prevnar 13) Branch Influenza High Dose 2016-12-05 Completed [facility] 00:00:00 [facility] [place] Pneumococcal 13 2016-12-05 Completed [facility] of Conjugate, PCV13 00:00:00 [place] [facility] (Prevnar 13) Branch Influenza High Dose 2016-12-05 Completed [facility] 00:00:00 [facility] Pneumococcal 13 2016-12-05 Completed [facility] of Conjugate, PCV13 00:00:00 [place] [facility] (Prevnar 13) Branch Influenza High Dose 2016-12-05 Completed [facility] 00:00:00 [facility] Pneumococcal 13 2016-12-05 Completed [facility] of Conjugate, PCV13 00:00:00 [place] [facility] (Prevnar 13) Branch Influenza High Dose 2016-12-05 Completed [facility] 00:00:00 [facility] [place] Pneumococcal 13 2016-12-05 Completed [facility] of Conjugate, PCV13 00:00:00 [place] [facility] (Prevnar 13) Branch Influenza High Dose 2016-12-05 Completed [facility] 00:00:00 [facility] Pneumococcal 13 2016-12-05 Completed [facility] of Conjugate, PCV13 00:00:00 [place] [facility] (Prevnar 13) Branch Influenza High Dose 2016-12-05 Completed [facility] of 00:00:00 [facility] Pneumococcal 13 2016-12-05 Completed [facility] of Conjugate, PCV13 00:00:00 [place] [facility] (Prevnar 13) Branch Influenza High Dose 2016-12-05 Completed [facility]ity of 00:00:00 [facility] Pneumococcal 13 2016-12-05 Completed [facility] of Conjugate, PCV13 00:00:00 [place] [facility] (Prevnar 13) Branch Influenza High Dose 2016-12-05 Completed [facility] of 00:00:00 [facility] Pneumococcal 13 2016-12-05 Completed [facility] of Conjugate, PCV13 00:00:00 [place] [facility] (Prevnar 13) Branch Influenza High Dose 2016-12-05 Completed [facility] 00:00:00 [facility] Pneumococcal 13 2016-12-05 Completed [facility] Conjugate, PCV13 00:00:00 [place] [facility] (Prevnar 13) Branch Influenza High Dose 2016-12-05 Completed [facility] of 00:00:00 [facility] Pneumococcal 13 2016-12-05 Completed [facility] Conjugate, PCV13 00:00:00 [place] [facility] (Prevnar 13) Branch Influenza High Dose 2016-12-05 Completed [facility] of 00:00:00 [facility] Pneumococcal 13 2016-12-05 Completed [facility] Conjugate, PCV13 00:00:00 [place] [facility] (Prevnar 13) Branch Influenza High Dose 2016-12-05 Completed [facility] 00:00:00 [facility] Pneumococcal 13 2016-12-05 Completed [facility] Conjugate, PCV13 00:00:00 [place] [facility] (Prevnar 13) Branch Influenza High Dose 2016-12-05 Completed [facility] 00:00:00 [facility] Pneumococcal 13 2016-12-05 Completed [facility] Conjugate, PCV13 00:00:00 [place] [facility] (Prevnar 13) Branch Influenza High Dose 2016-12-05 Completed [facility] of 00:00:00 [facility] Pneumococcal 13 2016-12-05 Completed [facility] Conjugate, PCV13 00:00:00 [place] [facility] (Prevnar 13) Branch Influenza High Dose 2016-12-05 Completed [facility] of 00:00:00 [facility] Pneumococcal 13 2016-12-05 Completed [facility] Conjugate, PCV13 00:00:00 [place] [facility] (Prevnar 13) Branch Influenza High Dose 2016-12-05 Completed [facility] of 00:00:00 [facility] Pneumococcal 13 2016-12-05 Completed [facility] Conjugate, PCV13 00:00:00 [place] [facility] (Prevnar 13) Branch Influenza High Dose 2016-12-05 Completed [facility] of 00:00:00 [facility] Pneumococcal 13 2016-12-05 Completed [facility] Conjugate, PCV13 00:00:00 [place] [facility] (Prevnar 13) Branch Influenza High Dose 2016-12-05 Completed [facility] 00:00:00 [facility] Pneumococcal 13 2016-12-05 Completed [facility] Conjugate, PCV13 00:00:00 [place] [facility] (Prevnar 13) Branch Influenza High Dose 2016-12-05 Completed [facility] 00:00:00 [facility] Pneumococcal 13 2016-12-05 Completed [facility] Conjugate, PCV13 00:00:00 [place] [facility] (Prevnar 13) Branch Influenza High Dose 2016-12-05 Completed [facility] 00:00:00 [facility] Pneumococcal 13 2016-12-05 Completed [facility] Conjugate, PCV13 00:00:00 [place] [facility] (Prevnar 13) Branch Influenza High Dose 2016-12-05 Completed [facility] of 00:00:00 [facility] Pneumococcal 13 2016-12-05 Completed [facility] Conjugate, PCV13 00:00:00 [place] [facility] (Prevnar 13) Branch Influenza High Dose 2016-12-05 Completed [facility] of 00:00:00 [facility] Pneumococcal 13 2016-12-05 Completed [facility] Conjugate, PCV13 00:00:00 [place] [facility] (Prevnar 13) Branch Influenza High Dose 2016-12-05 Completed [facility] 00:00:00 [facility] Pneumococcal 13 2016-12-05 Completed [facility] Conjugate, PCV13 00:00:00 [place] [facility] (Prevnar 13) Branch Influenza High Dose 2016-12-05 Completed [facility] 00:00:00 [facility] Pneumococcal 13 2016-12-05 Completed [facility] Conjugate, PCV13 00:00:00 [place] [facility] (Prevnar 13) Branch Influenza High Dose 2016-12-05 Completed [facility] of 00:00:00 [facility] Pneumococcal 13 2016-12-05 Completed [facility] Conjugate, PCV13 00:00:00 [place] [facility] (Prevnar 13) Branch Influenza High Dose 2016-12-05 Completed [facility] 00:00:00 [facility] Pneumococcal 13 2016-12-05 Completed [facility] Conjugate, PCV13 00:00:00 [place] [facility] (Prevnar 13) Branch Influenza High Dose 2016-12-05 Completed [facility] 00:00:00 [facility] Pneumococcal 13 2016-12-05 Completed [facility] Conjugate, PCV13 00:00:00 [place] [facility] (Prevnar 13) Branch Influenza High Dose 2016-12-05 Completed [facility] 00:00:00 [facility] Pneumococcal 13 2016-12-05 Completed [facility] Conjugate, PCV13 00:00:00 [place] [facility] (Prevnar 13) Branch Influenza High Dose 2016-12-05 Completed [facility] 00:00:00 [facility] Pneumococcal 13 2016-12-05 Completed [facility] Conjugate, PCV13 00:00:00 [place] [facility] (Prevnar 13) Branch Influenza High Dose 2016-12-05 Completed [facility] 00:00:00 [facility] Pneumococcal 13 2016-12-05 Completed [facility] Conjugate, PCV13 00:00:00 [place] [facility] (Prevnar 13) Branch Influenza High Dose 2016-12-05 Completed [facility] of 00:00:00 [facility] Pneumococcal 13 2016-12-05 Completed [facility] of Conjugate, PCV13 00:00:00 [place] [facility] (Prevnar 13) Branch Influenza High Dose 2016-12-05 Completed [facility] of 00:00:00 [facility] Pneumococcal 13 2016-12-05 Completed [facility] of Conjugate, PCV13 00:00:00 [place] [facility] (Prevnar 13) Branch Influenza High Dose 2016-12-05 Completed [facility] 00:00:00 [facility] Pneumococcal 13 2016-12-05 Completed [facility] Conjugate, PCV13 00:00:00 [place] [facility] (Prevnar 13) Branch Influenza High Dose 2016-12-05 Completed [facility] of 00:00:00 [facility] Pneumococcal 13 2016-12-05 Completed [facility] Conjugate, PCV13 00:00:00 [place] [facility] (Prevnar 13) Branch Influenza High Dose 2016-12-05 Completed [facility] of 00:00:00 [facility] Pneumococcal 13 2016-12-05 Completed [facility] Conjugate, PCV13 00:00:00 [place] [facility] (Prevnar 13) Branch Influenza High Dose 2016-12-05 Completed [facility] of 00:00:00 [facility] Pneumococcal 13 2016-12-05 Completed [facility] Conjugate, PCV13 00:00:00 [place] [facility] (Prevnar 13) Branch Influenza High Dose 2016-12-05 Completed [facility] 00:00:00 [facility] Pneumococcal 13 2016-12-05 Completed [facility] Conjugate, PCV13 00:00:00 [place] [facility] (Prevnar 13) Branch Influenza High Dose 2016-12-05 Completed [facility] 00:00:00 [facility] Pneumococcal 13 2016-12-05 Completed [facility] Conjugate, PCV13 00:00:00 [place] [facility] (Prevnar 13) Branch Influenza High Dose 2016-12-05 Completed [facility] 00:00:00 [facility] Pneumococcal 13 2016-12-05 Completed [facility] of Conjugate, PCV13 00:00:00 [place] [facility] (Prevnar 13) Branch Influenza High Dose 2016-12-05 Completed [facility] 00:00:00 [facility] Pneumococcal 13 2016-12-05 Completed [facility] Conjugate, PCV13 00:00:00 [place] [facility] (Prevnar 13) Branch Influenza High Dose 2016-12-05 Completed [facility] of 00:00:00 [facility] Pneumococcal 13 2016-12-05 Completed [facility] of Conjugate, PCV13 00:00:00 [place] [facility] (Prevnar 13) Branch Influenza High Dose 2016-12-05 Completed [facility] of 00:00:00 [facility] Pneumococcal 13 2016-12-05 Completed [facility] of Conjugate, PCV13 00:00:00 [place] [facility] (Prevnar 13) Branch Influenza High Dose 2016-12-05 Completed [facility] 00:00:00 [facility] Pneumococcal 13 2016-12-05 Completed [facility] Conjugate, PCV13 00:00:00 [place] [facility] (Prevnar 13) Branch Influenza High Dose 2016-12-05 Completed [facility] 00:00:00 [facility] Pneumococcal 13 2016-12-05 Completed [facility] Conjugate, PCV13 00:00:00 [place] [facility] (Prevnar 13) Branch Influenza High Dose 2016-12-05 Completed [facility] of 00:00:00 [facility] Pneumococcal 13 2016-12-05 Completed [facility] Conjugate, PCV13 00:00:00 [place] [facility] (Prevnar 13) Branch Influenza High Dose 2016-12-05 Completed [facility] 00:00:00 [facility] Pneumococcal 13 2016-12-05 Completed [facility] Conjugate, PCV13 00:00:00 [place] [facility] (Prevnar 13) Branch Influenza High Dose 2016-12-05 Completed [facility] 00:00:00 [facility] Pneumococcal 13 2016-12-05 Completed [facility] of Conjugate, PCV13 00:00:00 [place] [facility] (Prevnar 13) Branch Influenza High Dose 2016-12-05 Completed [facility] of 00:00:00 [facility] Pneumococcal 13 2016-12-05 Completed [facility] of Conjugate, PCV13 00:00:00 [place] [facility] (Prevnar 13) Branch Influenza High Dose 2016-12-05 Completed [facility] of 00:00:00 [facility] Pneumococcal 13 2016-12-05 Completed [facility] of Conjugate, PCV13 00:00:00 [place] [facility] (Prevnar 13) Branch Influenza High Dose 2016-12-05 Completed [facility] of 00:00:00 [facility] Pneumococcal 13 2016-12-05 Completed [facility] Conjugate, PCV13 00:00:00 [place] [facility] (Prevnar 13) Branch Influenza High Dose 2016-12-05 Completed [facility] 00:00:00 [facility] influenza virus 2015-01-20 Completed [facility] vaccine, 21:59:00 inactivated influenza virus 2015-01-20 Completed [facility], 21:59:00 inactivated influenza virus 2015-01-20 Completed [facility] vaccine, 21:59:00 inactivated influenza virus 2015-01-20 Completed [...] 14:50:54 <sup>2</sup> influenza virus 2012-12-29 Completed [facility] vaccine, 05:00:00 inactivated<sup>2</ sup> influenza virus 2012-12-29 Completed [facility] vaccine, 05:00:00 inactivated<sup>1</ sup> influenza virus 2012-12-29 Completed [facility] vaccine, 05:00:00 inactivated<sup>1</ sup> influenza virus 2012-12-29 Completed [facility] vaccine, 05:00:00 inactivated<sup>2</ sup> influenza virus 2012-12-29 Completed [facility] vaccine, 05:00:00 inactivated<sup>1</ sup> influenza virus 2012-12-29 Completed [facility] vaccine, 05:00:00 inactivated<sup>2</ sup> influenza virus 2012-12-29 Completed [facility] vaccine, 05:00:00 inactivated<sup>1</ sup> influenza virus 2012-12-29 [facility], 05:[facility]:00 inactivated<sup>2</ sup> influenza virus 2012-12-29 Com[facility] vaccine, 05:00:00 inactivated<sup>2</ sup> influenza virus 2012-12-29 Completed [facility] vaccine, 05:00:00 inactivated<sup>1</ sup> pneumococcal 2011-11-23 Completed [facility] Her ahn 23-valent 14:50:54 vaccine<sup>3</sup> pneumococcal 2011-11-23 Completed [facility] Her ahn 23-valent 14:50:54 vaccine<sup>3</sup> pneumococcal 2011-11-23 Completed [facility] ahn 23-valent 14:50:54 vaccine<sup>3</sup> pneumococcal 2011-11-23 Completed [facility] ahn 23-valent 14:50:54 vaccine<sup>3</sup> pneumococcal 2011-11-23 Completed [facility] ahn 23-valent 14:50:54 vaccine<sup>3</sup> Pneumococcal Unknown Completed [facility] f Polysaccharide, [place] [facility] PPSV23 (PNEUMOVAX) Branch Influenza High Dose Unknown Completed [facility] Influenza High Dose Unknown Completed [facility] SARS-COV-2 COVID-19 Unknown Completed [facility]ive [facility] of PFIZER VACCINE [facility] SARS-COV-2 COVID-19 Unknown Completed [facility]ive [facility] of PFIZER VACCINE [facility] Branch Influenza Virus Unknown Completed [facility] Vaccine [facility] Influenza Virus Unknown Completed [facility] Vaccine,quad [place] [facility],preserve Free Branch 65+ (FLUAD) Pneumococcal 13 Unknown Completed [facility] of Conjugate, PCV13 [facility] dical (Prevnar 13) Branch Influenza High Dose Unknown Completed [facility] Influenza High Dose Unknown Completed [facility]ive [facility] of [facility] Pneumococcal Unknown Completed [facility] o f Polysaccharide, [place] [facility] PPSV23 (PNEUMOVAX) Branch Influenza High Dose Unknown Completed [facility] Influenza High Dose Unknown Completed [facility] SARS-COV-2 COVID-19 Unknown Completed [facility] of PFIZER VACCINE [facility] Branch SARS-COV-2 COVID-19 Unknown Completed [facility]ACCINE [place] [facility] Influenza Virus Unknown Completed [facility] Vaccine [facility] Influenza Virus Unknown Completed [facility] Vaccine,quad [place] [facility],preserve Free Branch 65+ (FLUAD) Pneumococcal 13 Unknown Completed [facility] Conjugate, PCV13 [place] [facility] (Prevnar 13) Branch Influenza High Dose Unknown Completed [facility] of [facility] Influenza High Dose Unknown Completed [facility] of [facility] Pneumococcal Unknown Completed [facility] f Polysaccharide, [place] [facility] PPSV23 (PNEUMOVAX) Branch Influenza High Dose Unknown Completed [facility] of [facility] Influenza High Dose Unknown Completed [facility]ive rsity of [facility] Branch SARS-COV-2 COVID-19 Unknown Completed [facility] of PFIZER VACCINE [facility] Branch SARS-COV-2 COVID-19 Unknown Completed [facility]ity of PFIZER VACCINE [facility] Branch Influenza Virus Unknown Completed [facility] Vaccine [facility] Influenza Virus Unknown Completed [facility] Vaccine,quad [place] [facility],preserve Free Branch 65+ (FLUAD) Pneumococcal 13 Unknown Completed [facility] Conjugate, PCV13 [place] [facility] (Prevnar 13) Branch Influenza High Dose Unknown Completed [facility] of [facility] Influenza High Dose Unknown Completed [facility] of [facility] Pneumococcal Unknown Completed [facility] f Polysaccharide, [place] [facility] PPSV23 (PNEUMOVAX) Branch Influenza High Dose Unknown Completed [facility] Influenza High Dose Unknown Completed [facility] SARS-COV-2 COVID-19 Unknown Completed [facility] of PFIZER VACCINE [facility] Branch SARS-COV-2 COVID-19 Unknown Completed [facility] of PFIZER VACCINE [facility] Branch Influenza Virus Unknown Completed [facility] Vaccine [facility] Branch Influenza Virus Unknown Completed [facility] Vaccine,quad [place] [facility],preserve Free Branch 65+ (FLUAD) Pneumococcal 13 Unknown Completed [facility] Conjugate, PCV13 [place] [facility] (Prevnar 13) Branch Influenza High Dose Unknown Completed [facility] of [facility] Influenza High Dose Unknown Completed [facility] of [facility] Pneumococcal Unknown Completed [facility] f Polysaccharide, [place] [facility] PPSV23 (PNEUMOVAX) Branch Influenza High Dose Unknown Completed [facility] of [facility] Influenza High Dose Unknown Completed Unive rsity of [facility] Branch SARS-COV-2 COVID-19 Unknown Completed [facility]ive [facility]ity of PFIZER VACCINE [facility] Branch SARS-COV-2 COVID-19 Unknown Completed [facility] of PFIZER VACCINE [facility] Branch Influenza Virus Unknown Completed [facility] Vaccine [facility] Influenza Virus Unknown Completed [facility] Vaccine,quad [place] [facility],preserve Free Branch 65+ (FLUAD) Pneumococcal 13 Unknown Completed [facility] Conjugate, PCV13 [place] [facility] (Prevnar 13) Branch Influenza High Dose Unknown Completed [facility] rsity of [facility] Influenza High Dose Unknown Completed [facility] of [facility] Pneumococcal Unknown Completed [facility] o f Polysaccharide, [place] [facility] PPSV23 (PNEUMOVAX) Branch Influenza High Dose Unknown Completed [facility] of [facility] Branch Influenza High Dose Unknown Completed Unive rsity of [facility] SARS-COV-2 COVID-19 Unknown Completed [facility]ive [facility]ity of PFIZER VACCINE [facility] Branch SARS-COV-2 COVID-19 Unknown Completed [facility]ive rsity of PFIZER VACCINE [facility] Branch Influenza Virus Unknown Completed [facility] of Vaccine [facility] Influenza Virus Unknown Completed [facility] Vaccine,quad [place] [facility],preserve Free Branch 65+ (FLUAD) Pneumococcal 13 Unknown Completed [facility] Conjugate, PCV13 [place] [facility] (Prevnar 13) Branch Influenza High Dose Unknown Completed [facility] rs[facility] of [facility] Influenza High Dose Unknown Completed [facility] of [facility] Pneumococcal Unknown Completed [facility] o f Polysaccharide, [place] [facility] PPSV23 (PNEUMOVAX) Branch Influenza High Dose Unknown Completed [facility] rsity of [facility] Branch Influenza High Dose Unknown Completed [facility] of [facility] SARS-COV-2 COVID-19 Unknown Completed [facility]ity of PFIZER VACCINE [facility] Branch SARS-COV-2 COVID-19 Unknown Completed [facility] rs[facility] of PFIZER VACCINE [facility] Branch Influenza Virus Unknown Completed [facility] of Vaccine [facility] Branch Influenza Virus Unknown Completed [facility] Vaccine,quad [place] [facility],preserve Free Branch 65+ (FLUAD) Pneumococcal 13 Unknown Completed [facility] Conjugate, PCV13 [place] [facility] (Prevnar 13) Branch Influenza High Dose Unknown Completed [facility] rs[facility] of [facility] Influenza High Dose Unknown Completed [facility] of [facility] Pneumococcal Unknown Completed [facility] o f Polysaccharide, [place] [facility] PPSV23 (PNEUMOVAX) Branch Influenza High Dose Unknown Completed [facility] of [facility] Influenza High Dose Unknown Completed Unive rsity of [facility] SARS-COV-2 COVID-19 Unknown Completed [facility]ity of PFIZER VACCINE [facility] Branch SARS-COV-2 COVID-19 Unknown Completed [facility]ive rsity of PFIZER VACCINE [facility] Branch Influenza Virus Unknown Completed [facility] Vaccine [facility] Influenza Virus Unknown Completed [facility] Vaccine,quad [place] [facility],preserve Free Branch 65+ (FLUAD) Pneumococcal 13 Unknown Completed [facility] Conjugate, PCV13 [place] [facility] (Prevnar 13) Branch Influenza High Dose Unknown Completed [facility] rsity of [facility] Influenza High Dose Unknown Completed [facility] of [facility] Pneumococcal Unknown Completed [facility] o f Polysaccharide, [place] [facility] PPSV23 (PNEUMOVAX) Branch Influenza High Dose Unknown Completed [facility] Influenza High Dose Unknown Completed [facility] of [facility] SARS-COV-2 COVID-19 Unknown Completed [facility]ive rsity of PFIZER VACCINE [facility] Branch SARS-COV-2 COVID-19 Unknown Completed [facility]ive rsity of PFIZER VACCINE [facility] Branch Influenza Virus Unknown Completed [facility] of Vaccine [facility] Branch Influenza Virus Unknown Completed [facility] Vaccine,quad [place] [facility],preserve Free Branch 65+ (FLUAD) Pneumococcal 13 Unknown Completed [facility] Conjugate, PCV13 [place] [facility] (Prevnar 13) Branch Influenza High Dose Unknown Completed [facility] of [facility] Influenza High Dose Unknown Completed [facility] of [facility] Pneumococcal Unknown Completed [facility] o f Polysaccharide, [place] [facility] PPSV23 (PNEUMOVAX) Branch Influenza High Dose Unknown Completed [facility] rsity of [facility] Branch Influenza High Dose Unknown Completed [facility] of [facility] SARS-COV-2 COVID-19 Unknown Completed [facility]ive rsity of PFIZER VACCINE [facility] Branch SARS-COV-2 COVID-19 Unknown Completed [facility]ive rsity of PFIZER VACCINE [facility] Branch Influenza Virus Unknown Completed [facility] of Vaccine [facility] Branch Influenza Virus Unknown Completed [facility] Vaccine,quad [place] [facility],preserve Free Branch 65+ (FLUAD) Pneumococcal 13 Unknown Completed [facility] Conjugate, PCV13 [place] [facility] (Prevnar 13) Branch Influenza High Dose Unknown Completed [facility] of [facility] Influenza High Dose Unknown Completed [facility] of [facility] Pneumococcal Unknown Completed [facility] o f Polysaccharide, [place] [facility] PPSV23 (PNEUMOVAX) Branch Influenza High Dose Unknown Completed [facility] of [facility] Branch Influenza High Dose Unknown Completed Unive rsity of [facility] Branch SARS-COV-2 COVID-19 Unknown Completed [facility] of PFIZER VACCINE [facility] SARS-COV-2 COVID-19 Unknown Completed [facility]ity of PFIZER VACCINE [facility] Branch Influenza Virus Unknown Completed [facility] Vaccine [facility] Influenza Virus Unknown Completed [facility] of Vaccine,quad [place] [facility],preserve Free Branch 65+ (FLUAD) Pneumococcal 13 Unknown Completed [facility] Conjugate, PCV13 [place] [facility] (Prevnar 13) Branch Influenza High Dose Unknown Completed [facility] rsity of [facility] Influenza High Dose Unknown Completed [facility] rsity of [facility] Pneumococcal Unknown Completed [facility] o f Polysaccharide, [place] [facility] PPSV23 (PNEUMOVAX) Branch Influenza High Dose Unknown Completed [facility] of [facility] Influenza High Dose Unknown Completed Unive rsity of [facility] SARS-COV-2 COVID-19 Unknown Completed [facility] rsity of PFIZER VACCINE [facility] Branch SARS-COV-2 COVID-19 Unknown Completed [facility]ity of PFIZER VACCINE [facility] Branch Influenza Virus Unknown Completed [facility] of Vaccine [facility] Branch Influenza Virus Unknown Completed [facility] Vaccine,quad [place] [facility],preserve Free Branch 65+ (FLUAD) Pneumococcal 13 Unknown Completed [facility] Conjugate, PCV13 [place] [facility] (Prevnar 13) Branch Influenza High Dose Unknown Completed [facility] rsity of [facility] Influenza High Dose Unknown Completed [facility] rs[facility] of [facility] Pneumococcal Unknown Completed [facility] Polysaccharide, [place] [facility] PPSV23 (PNEUMOVAX) Branch Influenza High Dose Unknown Completed [facility] of [facility] Influenza High Dose Unknown Completed [facility] rsity of [facility] Branch SARS-COV-2 COVID-19 Unknown Completed [facility] of PFIZER VACCINE [facility] Branch SARS-COV-2 COVID-19 Unknown Completed [facility] of PFIZER VACCINE [facility] Branch Influenza Virus Unknown Completed [facility] Vaccine [facility] Influenza Virus Unknown Completed [facility] Vaccine,quad [place] [facility],preserve Free [facility] 65+ (FLUAD) Pneumococcal 13 Unknown Completed [facility] Conjugate, PCV13 [place] [facility] (Prevnar 13) Branch Influenza High Dose Unknown Completed [facility] Influenza High Dose Unknown Completed [facility] Pneumococcal Unknown Completed [facility] Polysaccharide, [place] [facility] PPSV23 (PNEUMOVAX) Branch Influenza High Dose Unknown Completed [facility] Influenza High Dose Unknown Completed [facility] of [facility] SARS-COV-2 COVID-19 Unknown Completed [facility] of PFIZER VACCINE [facility] SARS-COV-2 COVID-19 Unknown Completed [facility] of PFIZER VACCINE [facility] Branch Influenza Virus Unknown Completed [facility] Vaccine [facility] Influenza Virus Unknown Completed [facility] Vaccine,quad [place] [facility],preserve Free [facility] 65+ (FLUAD) Pneumococcal 13 Unknown Completed [facility] Conjugate, PCV13 [place] [facility] (Prevnar 13) Branch Influenza High Dose Unknown Completed [facility] Influenza High Dose Unknown Completed [facility] Pneumococcal Unknown Completed [facility] Polysaccharide, [place] [facility] PPSV23 (PNEUMOVAX) Branch Influenza High Dose Unknown Completed [facility] Influenza High Dose Unknown Completed [facility] of [facility] SARS-COV-2 COVID-19 Unknown Completed [facility] of PFIZER VACCINE [facility] SARS-COV-2 COVID-19 Unknown Completed [facility] rs[facility] of PFIZER VACCINE [facility] Influenza Virus Unknown Completed [facility] Vaccine [facility] Influenza Virus Unknown Completed [facility] Vaccine,quad [place] [facility],preserve Free [facility] 65+ (FLUAD) Pneumococcal 13 Unknown Completed [facility] Conjugate, PCV13 [place] [facility] (Prevnar 13) Branch Influenza High Dose Unknown Completed [facility] Influenza High Dose Unknown Completed [facility] Pneumococcal Unknown Completed [facility] Polysaccharide, [place] [facility] PPSV23 (PNEUMOVAX) Branch Influenza High Dose Unknown Completed [facility] Influenza High Dose Unknown Completed [facility] of [facility] SARS-COV-2 COVID-19 Unknown Completed [facility] of PFIZER VACCINE [facility] SARS-COV-2 COVID-19 Unknown Completed [facility] of PFIZER VACCINE [facility] Influenza Virus Unknown Completed [facility] Vaccine [facility] Influenza Virus Unknown Completed [facility] Vaccine,quad [place] [facility],preserve Free [facility] 65+ (FLUAD) Pneumococcal 13 Unknown Completed [facility] Conjugate, PCV13 [place] [facility] (Prevnar 13) Branch Influenza High Dose Unknown Completed [facility] Influenza High Dose Unknown Completed [facility] Pneumococcal Unknown Completed [facility] Polysaccharide, [place] [facility] PPSV23 (PNEUMOVAX) Branch Influenza High Dose Unknown Completed [facility] Influenza High Dose Unknown Completed [facility] of [facility] SARS-COV-2 COVID-19 Unknown Completed [facility] PFIZER VACCINE [facility] SARS-COV-2 COVID-19 Unknown Completed [facility] of PFIZER VACCINE [facility] Influenza Virus Unknown Completed [facility] Vaccine [facility] Influenza Virus Unknown Completed [facility] Vaccine,quad [place] [facility],preserve Free [facility] 65+ (FLUAD) Pneumococcal 13 Unknown Completed [facility] Conjugate, PCV13 [place] [facility] (Prevnar 13) Branch Influenza High Dose Unknown Completed [facility] Influenza High Dose Unknown Completed [facility] Pneumococcal Unknown Completed [facility] Polysaccharide, [place] [facility] PPSV23 (PNEUMOVAX) Branch Influenza High Dose Unknown Completed [facility] Influenza High Dose Unknown Completed [facility] rs[facility] of [facility] SARS-COV-2 COVID-19 Unknown Completed [facility] of PFIZER VACCINE [facility] SARS-COV-2 COVID-19 Unknown Completed [facility] rs[facility] of PFIZER VACCINE [facility] Influenza Virus Unknown Completed [facility] Vaccine [facility] Influenza Virus Unknown Completed [facility] Vaccine,quad [place] [facility],preserve Free [facility] 65+ (FLUAD) Pneumococcal 13 Unknown Completed [facility] of Conjugate, PCV13 [place] [facility] (Prevnar 13) Branch Influenza High Dose Unknown Completed [facility] Influenza High Dose Unknown Completed [facility] Pneumococcal Unknown Completed [facility] Polysaccharide, [place] [facility] PPSV23 (PNEUMOVAX) Branch Influenza High Dose Unknown Completed [facility] Influenza High Dose Unknown Completed [facility] rs[facility] of [facility] SARS-COV-2 COVID-19 Unknown Completed [facility] rs[facility] of PFIZER VACCINE [facility] SARS-COV-2 COVID-19 Unknown Completed [facility] of PFIZER VACCINE [facility] Branch Influenza Virus Unknown Completed [facility] Vaccine [facility] Influenza Virus Unknown Completed [facility] Vaccine,quad [place] [facility],preserve Free Branch 65+ (FLUAD) Pneumococcal 13 Unknown Completed [facility] of Conjugate, PCV13 [place] [facility] (Prevnar 13) Branch Influenza High Dose Unknown Completed [facility] Influenza High Dose Unknown Completed [facility] Pneumococcal Unknown Completed [facility] Polysaccharide, [place] [facility] PPSV23 (PNEUMOVAX) Branch Influenza High Dose Unknown Completed [facility] Influenza High Dose Unknown Completed [facility]ive [facility]ity of Quad [facility] SARS-COV-2 COVID-19 Unknown Completed [facility]ive rsity of PFIZER VACCINE [facility] SARS-COV-2 COVID-19 Unknown Completed [facility] rs[facility] of PFIZER VACCINE [facility] Influenza Virus Unknown Completed [facility] Vaccine [facility] Influenza Virus Unknown Completed [facility] Vaccine,quad [place] [facility],preserve Free Branch 65+ (FLUAD) Pneumococcal 13 Unknown Completed [facility] of Conjugate, PCV13 [place] [facility] (Prevnar 13) Branch Influenza High Dose Unknown Completed [facility] Influenza High Dose Unknown Completed [facility] of [facility] Pneumococcal Unknown Completed [facility] o [facility] Polysaccharide, [place] [facility] PPSV23 (PNEUMOVAX) Branch Influenza High Dose Unknown Completed [facility] Influenza High Dose Unknown Completed [facility] [place] [facility] SARS-COV-2 COVID-19 Unknown Completed [facility]ive rsity of PFIZER VACCINE [facility] Branch SARS-COV-2 COVID-19 Unknown Completed [facility] rs[facility] of PFIZER VACCINE [facility] Influenza Virus Unknown Completed [facility] Vaccine [facility] Influenza Virus Unknown Completed [facility] Vaccine,quad [place] [facility],preserve Free Branch 65+ (FLUAD) Pneumococcal 13 Unknown Completed [facility] of Conjugate, PCV13 [place] [facility] (Prevnar 13) Branch Influenza High Dose Unknown Completed [facility] of [facility] Influenza High Dose Unknown Completed [facility] of [facility] Pneumococcal Unknown Completed [facility] Polysaccharide, [place] [facility] PPSV23 (PNEUMOVAX) Branch Influenza High Dose Unknown Completed [facility] [place] [facility] Influenza High Dose Unknown Completed [facility] rs[facility] of [facility] SARS-COV-2 COVID-19 Unknown Completed [facility] of PFIZER VACCINE [facility] SARS-COV-2 COVID-19 Unknown Completed [facility] of PFIZER VACCINE [facility] Branch Influenza Virus Unknown Completed [facility] Vaccine [facility] Influenza Virus Unknown Completed [facility] Vaccine,quad [place] [facility],preserve Free Branch 65+ (FLUAD) Pneumococcal 13 Unknown Completed [facility] of Conjugate, PCV13 [place] [facility] (Prevnar 13) Branch Influenza High Dose Unknown Completed [facility] Influenza High Dose Unknown Completed [facility] Pneumococcal Unknown Completed [facility] o [facility] Polysaccharide, [place] [facility] PPSV23 (PNEUMOVAX) Branch Influenza High Dose Unknown Completed [facility] Influenza High Dose Unknown Completed [facility] rsity of [facility] SARS-COV-2 COVID-19 Unknown Completed [facility]ity of PFIZER VACCINE [facility] SARS-COV-2 COVID-19 Unknown Completed [facility] of PFIZER VACCINE [facility] Influenza Virus Unknown Completed [facility] Vaccine [facility] Influenza Virus Unknown Completed [facility] Vaccine,quad [place] [facility],preserve Free Branch 65+ (FLUAD) Pneumococcal 13 Unknown Completed [facility] of Conjugate, PCV13 [place] [facility] (Prevnar 13) Branch Influenza High Dose Unknown Completed [facility] Influenza High Dose Unknown Completed [facility] of [facility] Pneumococcal Unknown Completed [facility] o f Polysaccharide, [place] [facility] PPSV23 (PNEUMOVAX) Branch Influenza High Dose Unknown Completed [facility] Influenza High Dose Unknown Completed [facility] rsity of [facility] SARS-COV-2 COVID-19 Unknown Completed [facility] of PFIZER VACCINE [facility] SARS-COV-2 COVID-19 Unknown Completed [facility] of PFIZER VACCINE [facility] Branch Influenza Virus Unknown Completed [facility] of Vaccine [facility] Influenza Virus Unknown Completed [facility] Vaccine,quad [place] [facility],preserve Free Branch 65+ (FLUAD) Pneumococcal 13 Unknown Completed [facility] of Conjugate, PCV13 [place] [facility] (Prevnar 13) Branch Influenza High Dose Unknown Completed [facility] Influenza High Dose Unknown Completed [facility] Pneumococcal Unknown Completed [facility] o f Polysaccharide, [place] [facility] PPSV23 (PNEUMOVAX) Branch Influenza High Dose Unknown Completed [facility] Influenza High Dose Unknown Completed [facility] rsity of [facility] SARS-COV-2 COVID-19 Unknown Completed [facility] of PFIZER VACCINE [facility] SARS-COV-2 COVID-19 Unknown Completed [facility] of PFIZER VACCINE [facility] Branch Influenza Virus Unknown Completed [facility] Vaccine [facility] Influenza Virus Unknown Completed [facility] Vaccine,quad [place] [facility],preserve Free Branch 65+ (FLUAD) Pneumococcal 13 Unknown Completed [facility] of Conjugate, PCV13 [place] [facility] (Prevnar 13) Branch Influenza High Dose Unknown Completed [facility] Influenza High Dose Unknown Completed [facility] Pneumococcal Unknown Completed [facility] o [facility] Polysaccharide, [place] [facility] PPSV23 (PNEUMOVAX) Branch Influenza High Dose Unknown Completed [facility] Influenza High Dose Unknown Completed [facility] rsity of [facility] SARS-COV-2 COVID-19 Unknown Completed [facility]ity of PFIZER VACCINE [facility] SARS-COV-2 COVID-19 Unknown Completed [facility]ive rsity of PFIZER VACCINE [facility] Influenza Virus Unknown Completed [facility] Vaccine [facility] Influenza Virus Unknown Completed [facility] Vaccine,quad [place] [facility],preserve Free Branch 65+ (FLUAD) Pneumococcal 13 Unknown Completed [facility] of Conjugate, PCV13 [place] [facility] (Prevnar 13) Branch Influenza High Dose Unknown Completed [facility] Influenza High Dose Unknown Completed [facility] Pneumococcal Unknown Completed [facility] o f Polysaccharide, [place] [facility] PPSV23 (PNEUMOVAX) Branch Influenza High Dose Unknown Completed [facility] Influenza High Dose Unknown Completed [facility] rsity of [facility] SARS-COV-2 COVID-19 Unknown Completed [facility] rsity of PFIZER VACCINE [facility] SARS-COV-2 COVID-19 Unknown Completed [facility]ive rsity of PFIZER VACCINE [facility] Influenza Virus Unknown Completed [facility] Vaccine [facility] Influenza Virus Unknown Completed [facility] Vaccine,quad [place] [facility],preserve Free Branch 65+ (FLUAD) Pneumococcal 13 Unknown Completed [facility] of Conjugate, PCV13 [place] [facility] (Prevnar 13) Branch Influenza High Dose Unknown Completed [facility] Branch Influenza High Dose Unknown Completed [facility] Pneumococcal Unknown Completed [facility] o [facility] Polysaccharide, [place] [facility] PPSV23 (PNEUMOVAX) Branch Influenza High Dose Unknown Completed [facility] Influenza High Dose Unknown Completed [facility] rsity of [facility] SARS-COV-2 COVID-19 Unknown Completed [facility] rsity of PFIZER VACCINE [facility] SARS-COV-2 COVID-19 Unknown Completed [facility] of PFIZER VACCINE [facility] Branch Influenza Virus Unknown Completed [facility] Vaccine [facility] Influenza Virus Unknown Completed [facility] Vaccine,quad [place] [facility],preserve Free Branch 65+ (FLUAD) Pneumococcal 13 Unknown Completed [facility] of Conjugate, PCV13 [place] [facility] (Prevnar 13) Branch Influenza High Dose Unknown Completed [facility] Influenza High Dose Unknown Completed [facility] Pneumococcal Unknown Completed [facility] o f Polysaccharide, [place] [facility] PPSV23 (PNEUMOVAX) Branch Influenza High Dose Unknown Completed [facility] Branch Influenza High Dose Unknown Completed [facility] SARS-COV-2 COVID-19 Unknown Completed [facility]ive rsity of PFIZER VACCINE [facility] Branch SARS-COV-2 COVID-19 Unknown Completed Unive rsity of PFIZER VACCINE [facility] Branch Influenza Virus Unknown Completed [facility] Vaccine [facility] Branch Influenza Virus Unknown Completed [facility] Vaccine,quad [place] [facility],preserve Free Branch 65+ (FLUAD) influenza virus Unknown Completed [facility] vaccine, inactivated Hx influenza Unknown Completed [facility] vaccine-unspecified <sup>1</sup> Hx influenza Unknown Completed [facility] vaccine-unspecified <sup>2</sup> influenza virus [facility]<sup[facility]</ sup> [facility] virus [facility], inactivated<sup>1</ sup> pneumococcal Unknown Completed [facility] 23-valent vaccine<sup>3</sup> influenza virus Unknown Completed [facility] vaccine, inactivated Hx influenza Unknown Completed [facility] vaccine-unspecified <sup>1</sup> Hx influenza Unknown Completed [facility] vaccine-unspecified <sup>2</sup> influenza virus Unknown Completed [facility] vaccine, inactivated<sup>2</ sup> influenza virus Unknown Completed [facility] vaccine, inactivated<sup>1</ sup> pneumococcal Unknown Completed [facility] 23-valent vaccine<sup>3</sup> influenza virus Unknown Completed [facility] vaccine, inactivated Hx influenza Unknown Completed [facility] vaccine-unspecified <sup>1</sup> Hx influenza Unknown Completed [facility] vaccine-unspecified <sup>2</sup> influenza virus Unknown Completed [facility] vaccine, inactivated<sup>2</ sup> influenza virus Unknown Completed [facility] vaccine, inactivated<sup>1</ sup> pneumococcal Unknown Completed [facility] 23-valent vaccine<sup>3</sup> influenza virus Unknown Completed [facility] vaccine, inactivated Hx influenza Unknown Completed [facility] vaccine-unspecified <sup>1</sup> Hx influenza Unknown Completed [facility] vaccine-unspecified <sup>2</sup> influenza virus Unknown [facility] vaccine, inactivated<sup>2</ sup> influenza virus Unknown Com[facility] vaccine, inactivated<sup>1</ sup> pneumococcal Unknown Completed [facility] 23-valent vaccine<sup>3</sup> influenza virus Unknown Completed [facility] vaccine, inactivated Hx influenza Unknown Completed [facility] vaccine-unspecified <sup>1</sup> Hx influenza Unknown Completed [facility] vaccine-unspecified <sup>2</sup> influenza virus Unknown Completed [facility] vaccine, inactivated<sup>2</ sup> influenza virus Unknown Com[facility] vaccine, inactivated<sup>1</ sup> pneumococcal Unknown Completed [facility] 23-valent vaccine<sup>3</sup> influenza virus Unknown Com[facility] vaccine, inactivated Hx influenza Unknown Completed [facility] vaccine-unspecified <sup>1</sup> Hx influenza Unknown Completed [facility] vaccine-unspecified <sup>2</sup> influenza virus Unknown Com[facility] vaccine, inactivated<sup>2</ sup> influenza virus Unknown Com[facility] vaccine, inactivated<sup>1</ sup> pneumococcal Unknown Completed [facility] 23-valent vaccine<sup>3</sup> Pneumococcal 13 Unknown Completed [facility] y of Conjugate, PCV13 [facility] (Prevnar 13) Branch Influenza High Dose Unknown Completed [facility] Influenza High Dose Unknown Completed [facility] Pneumococcal Unknown Completed [facility] o [facility] Polysaccharide, [place] [facility] PPSV23 (PNEUMOVAX) Branch Influenza High Dose Unknown Completed [facility] Branch Influenza High Dose Unknown Completed [facility] rsity of [facility] SARS-COV-2 COVID-19 Unknown Completed [facility] of PFIZER VACCINE [facility] SARS-COV-2 COVID-19 Unknown Completed [facility] of PFIZER VACCINE [facility] Branch Influenza Virus Unknown Completed [facility] Vaccine [facility] Influenza Virus Unknown Completed [facility] Vaccine,quad [place] [facility],preserve Free Branch 65+ (FLUAD) Pneumococcal 13 Unknown Completed [facility] Conjugate, PCV13 [place] [facility] (Prevnar 13) Branch Influenza High Dose Unknown Completed [facility] Branch Influenza High Dose Unknown Completed [facility] Pneumococcal Unknown Completed [facility] o [facility] Polysaccharide, [place] [facility] PPSV23 (PNEUMOVAX) Branch Influenza High Dose Unknown Completed [facility] Influenza High Dose Unknown Completed [facility] rsity of [facility] SARS-COV-2 COVID-19 Unknown Completed [facility] of PFIZER VACCINE [facility] SARS-COV-2 COVID-19 Unknown Completed [facility] of PFIZER VACCINE [facility] Branch Influenza Virus Unknown Completed [facility] Vaccine [facility] Influenza Virus Unknown Completed [facility] Vaccine,quad [place] [facility],preserve Free Branch 65+ (FLUAD) Pneumococcal 13 Unknown Completed [facility] Conjugate, PCV13 [place] [facility] (Prevnar 13) Branch Influenza High Dose Unknown Completed [facility] Influenza High Dose Unknown Completed [facility] Pneumococcal Unknown Completed [facility] o [facility] Polysaccharide, [place] [facility] PPSV23 (PNEUMOVAX) Branch Influenza High Dose Unknown Completed [facility] Influenza High Dose Unknown Completed [facility] of [facility] SARS-COV-2 COVID-19 Unknown Completed [facility] of PFIZER VACCINE [facility] SARS-COV-2 COVID-19 Unknown Completed [facility] of PFIZER VACCINE [facility] Branch Influenza Virus Unknown Completed [facility] Vaccine [facility] Influenza Virus Unknown Completed [facility] Vaccine,quad [place] [facility],preserve Free Branch 65+ (FLUAD) Pneumococcal 13 Unknown Completed [facility] Conjugate, PCV13 [place] [facility] (Prevnar 13) Branch Influenza High Dose Unknown Completed [facility] [place] [facility] Influenza High Dose Unknown Completed [facility] Pneumococcal Unknown Completed University o f Polysaccharide, [place] [facility] PPSV23 (PNEUMOVAX) Branch Influenza High Dose Unknown Completed Unive rsity of [facility] Branch Influenza High Dose Unknown Completed Unive rsity of [facility] SARS-COV-2 COVID-19 Unknown Completed Unive rsity of PFIZER VACCINE [facility] Branch SARS-COV-2 COVID-19 Unknown Completed Unive rsity of PFIZER VACCINE [facility] Branch Influenza Virus Unknown Completed Universit y of Vaccine [facility] Influenza Virus Unknown Completed Universit y of Vaccine,quad [place] [facility],preserve Free Branch 65+ (FLUAD) Pneumococcal 13 Unknown Completed Universit y of Conjugate, PCV13 [place] [facility] (Prevnar 13) Branch Influenza High Dose Unknown Completed [facility]ive rsity of [facility] Branch Influenza High Dose Unknown Completed [facility]ive rsity of [facility] Pneumococcal Unknown Completed University o f Polysaccharide, [place] [facility] PPSV23 (PNEUMOVAX) Branch Influenza High Dose Unknown Completed [facility]ive rsity of [facility] Branch Influenza High Dose Unknown Completed Unive rsity of [facility] Branch SARS-COV-2 COVID-19 Unknown Completed Unive rsity of PFIZER VACCINE [facility] Branch SARS-COV-2 COVID-19 Unknown Completed Unive rsity of PFIZER VACCINE [facility] Branch Influenza Virus Unknown Completed Universit y of Vaccine [facility] Branch Influenza Virus Unknown Completed [facility] y of Vaccine,quad [place] [facility],preserve Free Branch 65+ (FLUAD) Pneumococcal 13 Unknown Completed [facility]it y of Conjugate, PCV13 [place] [facility] (Prevnar 13) Branch Influenza High Dose Unknown Completed [facility] rsity of [facility] Influenza High Dose Unknown Completed [facility]ive rs[facility] of [facility] Pneumococcal Unknown Completed [facility] o f Polysaccharide, [place] [facility] PPSV23 (PNEUMOVAX) Branch Influenza High Dose Unknown Completed [facility] rs[facility] of [facility] Branch Influenza High Dose Unknown Completed Unive rsity of [facility] Branch SARS-COV-2 COVID-19 Unknown Completed Unive rsity of PFIZER VACCINE [facility] Branch SARS-COV-2 COVID-19 Unknown Completed Unive rsity of PFIZER VACCINE [facility] Branch Influenza Virus Unknown Completed [facility]it y of Vaccine [facility] Influenza Virus Unknown Completed [facility] of Vaccine,quad [place] [facility],preserve Free Branch 65+ (FLUAD) Pneumococcal 13 Unknown Completed [facility]it y of Conjugate, PCV13 [place] [facility] (Prevnar 13) Branch Influenza High Dose Unknown Completed [facility] Influenza High Dose Unknown Completed [facility] Pneumococcal Unknown Completed [facility] o f Polysaccharide, [place] [facility] PPSV23 (PNEUMOVAX) Branch Influenza High Dose Unknown Completed [facility] Influenza High Dose Unknown Completed [facility]ive rsity of Quad [place] [facility] SARS-COV-2 COVID-19 Unknown Completed [facility] rs[facility] of PFIZER VACCINE [facility] Branch SARS-COV-2 COVID-19 Unknown Completed [facility]ive rsity of PFIZER VACCINE [facility] Branch Influenza Virus Unknown Completed [facility] of Vaccine [facility] Influenza Virus Unknown Completed [facility] of Vaccine,quad [place] [facility],preserve Free Branch 65+ (FLUAD) Pneumococcal 13 Unknown Completed [facility]it y of Conjugate, PCV13 [place] [facility] (Prevnar 13) Branch Influenza High Dose Unknown Completed [facility] rs[facility] of [facility] Branch Influenza High Dose Unknown Completed [facility] rs[facility] of [facility] Pneumococcal Unknown Completed [facility] o f Polysaccharide, [place] [facility] PPSV23 (PNEUMOVAX) Branch Influenza High Dose Unknown Completed [facility] rs[facility] of [facility] Branch Influenza High Dose Unknown Completed Unive rsity of [facility] Branch SARS-COV-2 COVID-19 Unknown Completed Unive rsity of PFIZER VACCINE [facility] Branch SARS-COV-2 COVID-19 Unknown Completed Unive rsity of PFIZER VACCINE [facility] Branch Influenza Virus Unknown Completed [facility]it [facility] of Vaccine [facility] Influenza Virus Unknown Completed [facility] of Vaccine,quad [place] [facility],preserve Free Branch 65+ (FLUAD) Pneumococcal 13 Unknown Completed [facility]it y of Conjugate, PCV13 [place] [facility] (Prevnar 13) Branch Influenza High Dose Unknown Completed [facility] rs[facility] of [facility] Branch Influenza High Dose Unknown Completed [facility] rs[facility] of [facility] Pneumococcal Unknown Completed [facility] o f Polysaccharide, [place] [facility] PPSV23 (PNEUMOVAX) Branch Influenza High Dose Unknown Completed [facility] rs[facility] of [facility] Branch Influenza High Dose Unknown Completed Unive rsity of [facility] Branch SARS-COV-2 COVID-19 Unknown Completed [facility]ive rsity of PFIZER VACCINE [facility] Branch SARS-COV-2 COVID-19 Unknown Completed [facility]ive rsity of PFIZER VACCINE [facility] Branch Influenza Virus Unknown Completed [facility]it [facility] of Vaccine [facility] Influenza Virus Unknown Completed [facility] of Vaccine,quad [place] [facility],preserve Free Branch 65+ (FLUAD) Pneumococcal 13 Unknown Completed [facility]it y of Conjugate, PCV13 [place] [facility] (Prevnar 13) Branch Influenza High Dose Unknown Completed [facility] rs[facility] of [facility] Branch Influenza High Dose Unknown Completed [facility] rs[facility] of [facility] Pneumococcal Unknown Completed [facility] o f Polysaccharide, [place] [facility] PPSV23 (PNEUMOVAX) Branch Influenza High Dose Unknown Completed [facility] rs[facility] of [facility] Branch Influenza High Dose Unknown Completed Unive rsity of Quad [facility] SARS-COV-2 COVID-19 Unknown Completed Unive rsity of PFIZER VACCINE [facility] Branch SARS-COV-2 COVID-19 Unknown Completed Unive rsity of PFIZER VACCINE [facility] Branch Influenza Virus Unknown Completed Universit y of Vaccine [facility] Influenza Virus Unknown Completed [facility]it y of Vaccine,quad [place] [facility],preserve Free Branch 65+ (FLUAD) Pneumococcal 13 Unknown Completed [facility]it y of Conjugate, PCV13 [place] [facility] (Prevnar 13) Branch Influenza High Dose Unknown Completed [facility] of [facility] Influenza High Dose Unknown Completed [facility] of [facility] Pneumococcal Unknown Completed [facility] o f Polysaccharide, [place] [facility] PPSV23 (PNEUMOVAX) Branch Influenza High Dose Unknown Completed [facility]ive [facility] of [facility] Influenza High Dose Unknown Completed [facility] of [facility] SARS-COV-2 COVID-19 Unknown Completed Unive rsity of PFIZER VACCINE [facility] Branch SARS-COV-2 COVID-19 Unknown Completed Unive rsity of PFIZER VACCINE [facility] Branch Influenza Virus Unknown Completed [facility]it y of Vaccine [facility] Branch Influenza Virus Unknown Completed [facility] y of Vaccine,quad [place] [facility],preserve Free Branch 65+ (FLUAD) Pneumococcal 13 Unknown Completed [facility]it y of Conjugate, PCV13 [place] [facility] (Prevnar 13) Branch Influenza High Dose Unknown Completed [facility]ive rsity of [facility] Influenza High Dose Unknown Completed [facility]ive rsity of [facility] Pneumococcal Unknown Completed [facility] o f Polysaccharide, [place] [facility] PPSV23 (PNEUMOVAX) Branch Influenza High Dose Unknown Completed [facility] [place] [facility] Influenza High Dose Unknown Completed Unive rsity of [facility] Branch SARS-COV-2 COVID-19 Unknown Completed [facility]ive rsity of PFIZER VACCINE [facility] Branch SARS-COV-2 COVID-19 Unknown Completed Unive rsity of PFIZER VACCINE [facility] Branch Influenza Virus Unknown Completed [facility]it y of Vaccine [facility] Pneumococcal 13 Unknown Completed [facility]it y of Conjugate, PCV13 [place] [facility] (Prevnar 13) Branch Influenza High Dose Unknown Completed [facility]ive rs[facility] of [facility] Branch Influenza High Dose Unknown Completed [facility] rs[facility] of [facility] Pneumococcal Unknown Completed [facility] o f Polysaccharide, [place] [facility] PPSV23 (PNEUMOVAX) Branch Influenza High Dose Unknown Completed [facility] rs[facility] of [facility] Branch Influenza High Dose Unknown Completed Unive rsity of [facility] Branch SARS-COV-2 COVID-19 Unknown Completed Unive rsity of PFIZER VACCINE [facility] Branch SARS-COV-2 COVID-19 Unknown Completed Unive rsity of PFIZER VACCINE [facility] Branch Influenza Virus Unknown Completed [facility]it y of Vaccine [facility] Pneumococcal 13 Unknown Completed [facility]it y of Conjugate, PCV13 [place] [facility] (Prevnar 13) Branch Influenza High Dose Unknown Completed [facility] rs[facility] of [facility] Branch Influenza High Dose Unknown Completed [facility] rs[facility] of [facility] Pneumococcal Unknown Completed [facility] o f Polysaccharide, [place] [facility] PPSV23 (PNEUMOVAX) Branch Influenza High Dose Unknown Completed [facility]ive rsity of [facility] Branch Influenza High Dose Unknown Completed [facility] of [facility] SARS-COV-2 COVID-19 Unknown Completed Unive rsity of PFIZER VACCINE [facility] Branch SARS-COV-2 COVID-19 Unknown Completed Unive rsity of PFIZER VACCINE [facility] Branch Influenza Virus Unknown Completed Universit y of Vaccine [facility] Pneumococcal 13 Unknown Completed [facility]it y of Conjugate, PCV13 [place] [facility] (Prevnar 13) Branch Influenza High Dose Unknown Completed [facility] rsity of [facility] Branch Influenza High Dose Unknown Completed [facility] rs[facility] of [facility] Pneumococcal Unknown Completed [facility] o f Polysaccharide, [place] [facility] PPSV23 (PNEUMOVAX) Branch Influenza High Dose Unknown Completed [facility] rsity of [facility] Branch Influenza High Dose Unknown Completed Unive rsity of [facility] Branch SARS-COV-2 COVID-19 Unknown Completed Unive rsity of PFIZER VACCINE [facility] Branch SARS-COV-2 COVID-19 Unknown Completed Unive rsity of PFIZER VACCINE [facility] Branch Influenza Virus Unknown Completed Universit y of Vaccine [facility] Pneumococcal 13 Unknown Completed [facility]it y of Conjugate, PCV13 [place] [facility] (Prevnar 13) Branch Influenza High Dose Unknown Completed [facility]ive rsity of [facility] Branch Influenza High Dose Unknown Completed [facility] rsity of [facility] Pneumococcal Unknown Completed University o f Polysaccharide, [place] [facility] PPSV23 (PNEUMOVAX) Branch Influenza High Dose Unknown Completed [facility]ive rsity of [facility] Branch Influenza High Dose Unknown Completed Unive rsity of [facility] Branch SARS-COV-2 COVID-19 Unknown Completed Unive rsity of PFIZER VACCINE [facility] Branch SARS-COV-2 COVID-19 Unknown Completed Unive rsity of PFIZER VACCINE [facility] Branch Influenza Virus Unknown Completed Universit y of Vaccine [facility] Pneumococcal 13 Unknown Completed [facility]it y of Conjugate, PCV13 [place] [facility] (Prevnar 13) Branch Influenza High Dose Unknown Completed [facility]ive rsity of [facility] Influenza High Dose Unknown Completed [facility]ive rsity of [facility] Pneumococcal Unknown Completed University o f Polysaccharide, [place] [facility] PPSV23 (PNEUMOVAX) Branch Influenza High Dose Unknown Completed [facility]ive rsity of [facility] Branch Influenza High Dose Unknown Completed Unive rsity of [facility] Branch SARS-COV-2 COVID-19 Unknown Completed Unive rsity of PFIZER VACCINE [facility] Branch SARS-COV-2 COVID-19 Unknown Completed Unive rsity of PFIZER VACCINE [facility] Branch Influenza Virus Unknown Completed [facility]it y of Vaccine [facility] Pneumococcal 13 Unknown Completed [facility]it y of Conjugate, PCV13 [place] [facility] (Prevnar 13) Branch Influenza High Dose Unknown Completed [facility] rs[facility] of [facility] Branch Influenza High Dose Unknown Completed [facility] rs[facility] of [facility] Pneumococcal Unknown Completed University o f Polysaccharide, [place] [facility] PPSV23 (PNEUMOVAX) Branch Influenza High Dose Unknown Completed [facility] rsity of [facility] Branch Influenza High Dose Unknown Completed Unive rsity of [facility] SARS-COV-2 COVID-19 Unknown Completed Unive rsity of PFIZER VACCINE [facility] Branch SARS-COV-2 COVID-19 Unknown Completed Unive rsity of PFIZER VACCINE [facility] Branch Influenza Virus Unknown Completed [facility]it y of Vaccine [place] [facility] Pneumococcal 13 Unknown Completed [facility]it y of Conjugate, PCV13 [place] [facility] (Prevnar 13) Branch Influenza High Dose Unknown Completed [facility]ive rsity of [facility] Influenza High Dose Unknown Completed [facility]ive rsity of [facility] Pneumococcal Unknown Completed University o f Polysaccharide, [place] [facility] PPSV23 (PNEUMOVAX) Branch Influenza High Dose Unknown Completed [facility]ive rsity of [facility] Branch Influenza High Dose Unknown Completed [facility] of [facility] SARS-COV-2 COVID-19 Unknown Completed Unive rsity of PFIZER VACCINE [facility] Branch SARS-COV-2 COVID-19 Unknown Completed Unive rsity of PFIZER VACCINE [facility] Branch Influenza Virus Unknown Completed Universit y of Vaccine [facility] Pneumococcal 13 Unknown Completed Universit y of Conjugate, PCV13 [place] [facility] (Prevnar 13) Branch Influenza High Dose Unknown Completed [facility]ive rsity of [facility] Influenza High Dose Unknown Completed [facility]ive rsity of [facility] Pneumococcal Unknown Completed University o f Polysaccharide, [place] [facility] PPSV23 (PNEUMOVAX) Branch Influenza High Dose Unknown Completed [facility]ive rsity of [facility] Influenza High Dose Unknown Completed [facility] of [facility] SARS-COV-2 COVID-19 Unknown Completed Unive rsity of PFIZER VACCINE [facility] Branch Influenza Virus Unknown Completed Universit y of Vaccine [facility] Pneumococcal 13 Unknown Completed [facility]it y of Conjugate, PCV13 [place] [facility] (Prevnar 13) Branch Influenza High Dose Unknown Completed [facility]ive rsity of [facility] Branch Influenza High Dose Unknown Completed [facility]ive rs[facility] of [facility] Pneumococcal Unknown Completed [facility] o f Polysaccharide, [place] [facility] PPSV23 (PNEUMOVAX) Branch Influenza High Dose Unknown Completed [facility]ive rsity of [facility] Branch Influenza High Dose Unknown Completed Unive rsity of [facility] Branch Influenza Virus Unknown Completed Universit y of Vaccine [facility] Pneumococcal 13 Unknown Completed [facility]it y of Conjugate, PCV13 [place] [facility] (Prevnar 13) Branch Influenza High Dose Unknown Completed [facility]ive rsity of [facility] Influenza High Dose Unknown Completed [facility]ive rsity of [facility] Pneumococcal Unknown Completed University o f Polysaccharide, [place] [facility] PPSV23 (PNEUMOVAX) Branch Influenza High Dose Unknown Completed [facility]ive rsity of [facility] Branch Influenza High Dose Unknown Completed Unive rsity of [facility] Branch Influenza Virus Unknown Completed Universit y of Vaccine [facility] Pneumococcal 13 Unknown Completed [facility]it y of Conjugate, PCV13 [place] [facility] (Prevnar 13) Branch Influenza High Dose Unknown Completed [facility]ive rsity of [facility] Influenza High Dose Unknown Completed [facility]ive rsity of [facility] Pneumococcal Unknown Completed University o f Polysaccharide, [place] [facility] PPSV23 (PNEUMOVAX) Branch Influenza High Dose Unknown Completed [facility]ive rsity of [facility] Influenza High Dose Unknown Completed [facility] of [facility] Influenza Virus Unknown Completed Universit y of Vaccine [facility] Pneumococcal 13 Unknown Completed Universit y of Conjugate, PCV13 [place] [facility] (Prevnar 13) Branch Influenza High Dose Unknown Completed [facility]ive rsity of [facility] Influenza High Dose Unknown Completed [facility]ive rsity of [facility] Pneumococcal Unknown Completed University o f Polysaccharide, [place] [facility] PPSV23 (PNEUMOVAX) Branch Influenza High Dose Unknown Completed [facility]ive rsity of [facility] Influenza High Dose Unknown Completed [facility] of [facility] Influenza Virus Unknown Completed Universit y of Vaccine [facility] Pneumococcal 13 Unknown Completed Universit y of Conjugate, PCV13 [place] [facility] (Prevnar 13) Branch Influenza High Dose Unknown Completed [facility]ive rsity of [facility] Influenza High Dose Unknown Completed Unive rsity of [facility] Pneumococcal Unknown Completed University o f Polysaccharide, [place] [facility] PPSV23 (PNEUMOVAX) Branch Influenza High Dose Unknown Completed [facility]ive rsity of [facility] Pneumococcal 13 Unknown Completed Universit y of Conjugate, PCV13 [place] [facility] (Prevnar 13) Branch Influenza High Dose Unknown Completed [facility]ive rsity of [facility] Influenza High Dose Unknown Completed Unive rsity of [facility] Pneumococcal Unknown Completed University o f Polysaccharide, [place] [facility] PPSV23 (PNEUMOVAX) Branch Influenza High Dose Unknown Completed [facility]ive rsity of [facility] Influenza High Dose Unknown Completed [facility]ity of [facility] SARS-COV-2 COVID-19 Unknown Completed Unive rsity of PFIZER VACCINE [facility] Branch SARS-COV-2 COVID-19 Unknown Completed Unive rsity of PFIZER VACCINE [facility] Influenza Virus Unknown Completed Universit y of Vaccine [facility] Influenza Virus Unknown Completed Universit y of Vaccine,[facility] l Im,preserve Free Branch 65+ (FLUAD) Pneumococcal 13 Unknown Completed Universit y of Conjugate, PCV13 [place] [facility] (Prevnar 13) Branch Influenza High Dose Unknown Completed Unive rsity of [facility] Influenza High Dose Unknown Completed Unive rsity of [facility] Vital Signs Vital Name Observation Time Observation Value Comments Source Systolic blood 2023-01-29 145 mm[Hg] University of pressure 16:04:00 [facility] Branch Diastolic blood 2023-01-29 67 mm[Hg] University o f pressure 16:04:00 [facility] Heart rate 2023-01-29 66 /min University 16:04:00 [facility] Respiratory rate 2023-01-29 21 /min University of 16:02:00 [facility] Body height 2023-01-29 182.9 cm University of 16:02:00 [facility] Body weight 2023-01-29 84.687 kg University of 16:02:00 [facility] BMI 2023-01-29 25.32 kg/m2 University of 16:02:00 [facility] Oxygen saturation 2023-01-29 95 /min 1L [place] [facility] in Arterial blood 16:02:00 [facility] by Pulse oximetry Branch Systolic blood 2022-12-26 148 mm[Hg] manual; taken University o f pressure 18:00: twice; [facility] asymptomatic Branch Diastolic blood 2022-12-26 64 mm[Hg] manual; taken University of pressure 18:00:00 twice; [facility] asymptomatic Branch Heart rate 2022-12-26 76 /min University of 18:00: [facility] Respiratory rate 2022-12-26 22 /min University of 18:00:00 [facility] Body weight 2022-12-26 86.456 kg University of 18:00:00 [facility] BMI 2022-12-26 25.85 kg/m2 University of 18:00: [facility] Oxygen saturation 2022-12-26 93 /min walked into [facility] in Arterial blood 18:00:00 building RA, SpO2 [facility] by Pulse oximetry 89%, put 2l/m Branch pulsed [place] on with SpO2>90% within 1-2 mins; exercised on 1 l/m con't [place] Systolic blood 2022-12-25 136 mm[Hg] manual University of pressure 18:00:00 [facility] Branch Diastolic blood 2022-12-25 56 mm[Hg] manual University o f pressure 18:00:00 [facility] Heart rate 2022-12-25 71 /min University of 18:00:00 [facility] Respiratory rate 2022-12-25 22 /min University of 18:00:00 [facility] Body weight 2022-12-25 86.183 kg University of 18:00:00 [facility] BMI 2022-12-25 25.77 kg/m2 University of 18:00:00 [facility] Oxygen saturation 2022-12-25 94 /min arrived on RA; Universi ty of in Arterial blood 18:00:00 [place] 1 l/[place] [facility] [place] Systolic blood 2022-12-20 110 mm[Hg] manual University of pressure 18:15:00 [facility] Diastolic blood 2022-12-20 46 mm[Hg] manual University o f pressure 18:15: [facility] Heart rate 2022-12-20 81 /min University of 18:15:00 [facility] Respiratory rate 2022-12-20 22 /min University of 18:15:00 [facility] Body weight 2022-12-20 81.647 kg University of 18:15:00 [facility] BMI 2022-12-20 24.41 kg/m2 University of 18:15:00 [facility] Oxygen saturation 2022-12-20 98 /min arrived on pulsed Unive rsity of in Arterial blood 18:15:00 2 l/m NC; [facility] christa by Pulse oximetry exercised on 2 [...] rate 2022-11-28 78 /min University of 18:00:00 [facility] Respiratory rate 2022-11-28 22 /min University of 18:00:00 [facility] Body weight 2022-11-28 79.47 kg University of 18:00:00 [facility] BMI 2022-11-28 23.76 kg/m2 University of 18:00:00 [facility] Oxygen saturation 2022-11-28 95 /min arrived on pulsed Unive rsity of in Arterial blood 18:00:00 2 l/m [place]; [place] [facility] by Pulse oximetry exercised on con't Bran ch 2 l/m NC Systolic blood 2022-11-26 147 mm[Hg] University of pressure 19:00:00 [facility] Diastolic blood 2022-11-26 86 mm[Hg] University o f pressure 19:00:00 [facility] Heart rate 2022-11-26 77 /min University of 19:00:00 [facility] Body temperature 2022-11-26 36.89 Erna University of 19:00:00 [facility] Respiratory rate 2022-11-26 18 /min University of 19:00:00 [facility] Body height 2022-11-26 182.9 cm University of 19:00:00 [facility] Body weight 2022-11-26 78.472 kg University of 19:00:00 [facility] BMI 2022-11-26 23.46 kg/m2 University of 19:00:00 [facility] Oxygen saturation 2022-11-26 100 /min University in Arterial blood 19:00:00 [place] [facility] by Pulse oximetry Branch Systolic blood 2022-11-19 120 mm[Hg] manual University of pressure 18:00:00 [facility] Diastolic blood 2022-11-19 60 mm[Hg] manual University o f pressure 18:00:00 [facility] Heart rate 2022-11-19 82 /min University of 18:00:00 [facility] Respiratory rate 2022-11-19 22 /min University of 18:00:00 [facility] Body weight 2022-11-19 81.103 kg University of 18:00:00 [facility] BMI 2022-11-19 24.25 kg/m2 University of 18:00:00 [facility] Oxygen saturation 2022-11-19 96 /min arrived on 2 l/m Univer sit of in Arterial blood 18:00:00 [place] con't; [place] [facility] by Pulse oximetry exercised on 2 l/m Bran ch [place] con't Systolic blood 2022-11-14 122 mm[Hg] manual University of pressure 18:00:00 [facility] Diastolic blood 2022-11-14 58 mm[Hg] manual University o f pressure 18:00:00 [facility] Heart rate 2022-11-14 78 /min University of 18:00:00 [facility] Respiratory rate 2022-11-14 22 /min University of 18:00:00 [facility] Body weight 2022-11-14 79.017 kg University of 18:00:00 [facility] BMI 2022-11-14 23.63 kg/m2 University of 18:00:00 [facility] Oxygen saturation 2022-11-14 98 /min arrived on 2 l/m Univer sity of in Arterial blood 18:00:00 con't [place]; [place] [facility] by Pulse oximetry exercised on RA & Branc h 2 l/m con't [place] Systolic blood 2022-11-12 126 mm[Hg] manual University of pressure 18:00:00 [facility] Diastolic blood 2022-11-12 66 mm[Hg] manual University o f pressure 18:00:00 [facility] Heart rate 2022-11-12 74 /min University of 18:00:00 [facility] Respiratory rate 2022-11-12 20 /min University of 18:00:00 [facility] Body weight 2022-11-12 81.557 kg University of 18:00:00 [facility] BMI 2022-11-12 24.39 kg/m2 University of 18:00:00 [facility] Oxygen saturation 2022-11-12 95 /min arrived on 2 l/m Univer sity of in Arterial blood 18:00:00 NC; exercised [place] [facility] by Pulse oximetry mainly on RA Branch Systolic blood 2022-11-09 122 mm[Hg] manual; right arm Universi ty of pressure 18:30:00 [id number] manual [facility] Diastolic blood 2022-11-09 64 mm[Hg] manual; right arm Univers ity of pressure 18:30:00 [id number] manual [facility] Heart rate 2022-11-09 70 /min University of 18:30:00 [facility] Respiratory rate 2022-11-09 22 /min University of 18:30:00 [facility] Body weight 2022-11-09 82.101 kg University of 18:30:00 [facility] BMI 2022-11-09 24.55 kg/m2 University of 18:30:00 [facility] Oxygen saturation 2022-11-09 99 /min arrived on 2 l/m Univer sity of in Arterial blood 18:30:00 con't [place]; [place] [facility] by Pulse oximetry exercised on Branch Systolic blood 2022-11-09 131 mm[Hg] University of pressure 15:22:00 [facility] Diastolic blood 2022-11-09 77 mm[Hg] University o f pressure 15:22:00 [facility] Heart rate 2022-11-09 86 /min University of 15:22:00 [facility] Respiratory rate 2022-11-09 18 /min University of 15:22:00 [facility] Body height 2022-11-09 182.9 cm University of 15:22:00 [facility] Body weight 2022-11-09 81.557 kg University of 15:22:00 [facility] BMI 2022-11-09 24.39 kg/m2 University of 15:22:00 [facility] Oxygen saturation 2022-11-09 97 /min University of in Arterial blood 15:22:00 [place] [facility] by Pulse oximetry Branch Systolic blood 2022-11-09 131 mm[Hg] University of pressure 15:22:00 [facility] Diastolic blood 2022-11-09 77 mm[Hg] University o f pressure 15:22:00 [facility] Heart rate 2022-11-09 86 /min University of 15:22:00 [facility] Respiratory rate 2022-11-09 18 /min University of 15:22:00 [facility] Body height 2022-11-09 182.9 cm University of 15:22:00 [facility] Body weight 2022-11-09 81.557 kg University of 15:22:00 [facility] BMI 2022-11-09 24.39 kg/m2 University of 15:22:00 [facility] Oxygen saturation 2022-11-09 97 /min University of in Arterial blood 15:22:00 [place] [facility] by Pulse oximetry Branch Systolic blood 2022-10-23 137 mm[Hg] University of pressure 20:32:00 [facility] Diastolic blood 2022-10-23 73 mm[Hg] University o f pressure 20:32:00 [facility] Heart rate 2022-10-23 60 /min University of 20:32:00 [facility] Body temperature 2022-10-23 37.22 Erna University of 20:32:00 [facility] Respiratory rate 2022-10-23 17 /min University of 20:32:00 [facility] Oxygen saturation 2022-10-23 98 /min University of in Arterial blood 20:32:00 [place] [facility] by Pulse oximetry Branch Body height 2022-10-19 182.9 cm University of 09:00:00 [facility] Body weight 2022-10-19 82.555 kg University of 09:00:00 [facility] BMI 2022-10-19 24.68 kg/m2 University of 09:00:00 [facility] Systolic blood 2022-10-09 136 mm[Hg] University of pressure 20:35:00 [facility] Diastolic blood 2022-10-09 76 mm[Hg] University o f pressure 20:35:00 [facility] Heart rate 2022-10-09 68 /min University of 20:35:00 [facility] Body temperature 2022-10-09 36.67 Erna University of 20:35:00 [facility] Respiratory rate 2022-10-09 19 /min University of 20:35:00 [facility] Oxygen saturation 2022-10-09 99 /min University of in Arterial blood 20:35:00 [facility] by Pulse oximetry Branch Body weight 2022-10-09 82.827 kg University of :00:00 [facility] BMI 2022-10-09 24.77 kg/m2 University of 09:00:00 [facility] Body height 2022-10-05 182.9 cm University of 23:31:00 [facility] Systolic blood 2022-10-01 143 mm[Hg] University of pressure 15:44:00 [facility] Diastolic blood 2022-10-01 67 mm[Hg] University o f pressure 15:44:00 [facility] Heart rate 2022-10-01 52 /min University of 15:43:00 [facility] Body temperature 2022-10-01 36.5 Erna University of 15:43:00 [facility] Respiratory rate 2022-10-01 18 /min University of 15:43:00 [facility] Body height 2022-10-01 182.9 cm University of 15:43:00 [facility] Body weight 2022-10-01 87.317 kg University of 15:43:00 [facility] BMI 2022-10-01 26.11 kg/m2 University of 15:43:00 [facility] Oxygen saturation 2022-10-01 96 /min University of in Arterial blood 15:43:00 [facility] by Pulse oximetry Branch Heart rate 2022-09-18 70 /min University of 23:00:00 [facility] Respiratory rate 2022-09-18 13 /min University of 23:00:00 [facility] Oxygen saturation 2022-09-18 96 /min University of in Arterial blood 23:00:00 [place] [facility] by Pulse oximetry Branch Systolic blood 2022-09-18 141 mm[Hg] University of pressure 22:01:00 [facility] Diastolic blood 2022-09-18 80 mm[Hg] University o f pressure 22:01:00 [facility] Body temperature 2022-09-18 36.72 Erna University of 20:09:00 [facility] Body weight 2022-09-18 85.957 kg University of 09:00:00 [facility] BMI 2022-09-18 25.70 kg/m2 University of 09:00:00 [facility] Body height 2022-09-17 182.9 cm University of 19:54:00 [facility] Systolic blood 2022-04-16 135 mm[Hg] University of pressure 16:11:00 [facility] Diastolic blood 2022-04-16 70 mm[Hg] University o f pressure 16:11:00 [facility] Heart rate 2022-04-16 53 /min University of 16:11:00 [facility] Body temperature 2022-04-16 36.17 Erna University of 16:11:00 [facility] Body height 2022-04-16 182.9 cm University of 16:11:00 [facility] Body weight 2022-04-16 88.179 kg University of 16:11:00 [facility] BMI 2022-04-16 26.37 kg/m2 University of 16:11:00 [facility] Oxygen saturation 2022-04-16 96 /min University of in Arterial blood 16:11:00 [facility] christa by Pulse oximetry Branch Systolic blood 2022-04-12 137 mm[Hg] University of pressure 19:48:00 [facility] Diastolic blood 2022-04-12 78 mm[Hg] University o f pressure 19:48:00 [facility] Heart rate 2022-04-12 72 /min University of 19:48:00 [facility] Body temperature 2022-04-12 36 Erna University of 19:48:00 [facility] Respiratory rate 2022-04-12 18 /min University of 19:48:00 [facility] Body height 2022-04-12 182.9 cm University of 19:48:00 [facility] Body weight 2022-04-12 90.13 kg University of 19:48:00 [facility] BMI 2022-04-12 26.95 kg/m2 University of 19:48:00 [facility] Oxygen saturation 2022-04-12 95 /min University of in Arterial blood 19:48:00 [place] [facility] by Pulse oximetry Branch Systolic blood 2022-03-08 182 mm[Hg] University of pressure 22:07:00 [facility] Diastolic blood 2022-03-08 78 mm[Hg] University o f pressure 22:07:00 [facility] Heart rate 2022-03-08 67 /min University of 22:05:00 [facility] Body temperature 2022-03-08 36.28 Erna University of 20:08:00 [facility] Respiratory rate 2022-03-08 18 /min University of 20:08:00 [facility] Body height 2022-03-08 182.9 cm University of 20:08:00 [facility] Body weight 2022-03-08 86.818 kg University of 20:08:00 [facility] BMI 2022-03-08 25.96 kg/m2 University of 20:08:00 [facility] Oxygen saturation 2022-03-08 97 /min University of in Arterial blood 20:08:00 [place] [facility] by Pulse oximetry Branch Systolic blood 2022-01-08 188 mm[Hg] University of pressure 16:01:00 [facility] Diastolic blood 2022-01-08 66 mm[Hg] University o f pressure 16:01:00 [facility] Heart rate 2022-01-08 54 /min University of 16:01:00 [facility] Respiratory rate 2022-01-08 19 /min University of 16:01:00 [facility] Body height 2022-01-08 182.9 cm University of 16:01:00 [facility] Body weight 2022-01-08 89.858 kg University of 16:01:00 [facility] BMI 2022-01-08 26.87 kg/m2 University of 16:01:00 [facility] Oxygen saturation 2022-01-08 96 /min University of in Arterial blood 16:01:00 [place] [facility] by Pulse oximetry Branch Systolic blood 2021-12-06 118 mm[Hg] University of pressure 18:30:00 [facility] Diastolic blood 2021-12-06 76 mm[Hg] University o f pressure 18:30:00 [facility] Heart rate 2021-12-06 66 /min University of 18:26:00 [facility] Body temperature 2021-12-06 36.33 Erna University of 18::00 [facility] Respiratory rate 2021-12-06 18 /min University of 18::00 [facility] Body height 2021-12-06 182.9 cm University of 18::00 [facility] Body weight 2021-12-06 88.179 kg University of 18::00 [facility] BMI 2021-12-06 26.37 kg/m2 University of 18::00 [facility] Oxygen saturation 2021-12-06 96 /min University of in Arterial blood 18::00 [facility] by Pulse oximetry Branch Systolic blood 2021-12-05 138 mm[Hg] manual University of pressure 15:00:00 [facility] Diastolic blood 2021-12-05 68 mm[Hg] manual University o f pressure 15:00:00 [facility] Heart rate 2021-12-05 58 /min University of 15:00:00 [facility] Respiratory rate 2021-12-05 22 /min University of 15:00:00 [facility] Body weight 2021-12-05 88.633 kg University of 15:00:00 [facility] BMI 2021-12-05 26.50 kg/m2 University of 15:00:00 [facility] Oxygen saturation 2021-12-05 97 /min arrived on 2l/m Univers ity of in Arterial blood 15:00:00 NM, took off; 6MW [facility] by Pulse oximetry done RA Branch Systolic blood 2021-11-30 120 mm[Hg] manual University of pressure 14:00:00 [facility] Diastolic blood 2021-11-30 66 mm[Hg] manual University o f pressure 14:00:00 [facility] Heart rate 2021-11-30 68 /min University of 14:00:00 [facility] Respiratory rate 2021-11-30 22 /min University of 14:00:00 [facility] Body weight 2021-11-30 90.311 kg University of 14:00:00 [facility] BMI 2021-11-30 27.00 kg/m2 University of 14:00:00 [facility] Oxygen saturation 2021-11-30 94 /min arrived on RA; [facility] of in Arterial blood 14:00:00 exercised on RA [place] [facility] by Pulse oximetry Branch Systolic blood 2021-11-28 118 mm[Hg] manual University of pressure 15:00:00 [facility] Diastolic blood 2021-11-28 60 mm[Hg] manual University o f pressure 15:00:00 [facility] Heart rate 2021-11-28 63 /min University of 15:00:00 [facility] Respiratory rate 2021-11-28 22 /min University of 15:00:00 [facility] Body weight 2021-11-28 90.084 kg University of 15:00:00 [facility] BMI 2021-11-28 26.94 kg/m2 University of 15:00:00 [facility] Oxygen saturation 2021-11-28 97 /min [facility] of in Arterial blood 15:00:00 [facility] christa by Pulse oximetry Branch Systolic blood 2021-11-24 130 mm[Hg] manual University of pressure 16:00:00 [facility] Diastolic blood 2021-11-24 58 mm[Hg] manual University o f pressure 16:00:00 [facility] Heart rate 2021-11-24 55 /min University of 16:00:00 [facility] Respiratory rate 2021-11-24 20 /min University of 16:00:00 [facility] Body weight 2021-11-24 92.897 kg University of 16:00:00 [facility] BMI 2021-11-24 27.78 kg/m2 University of 16:00:00 [facility] Oxygen saturation 2021-11-24 95 /min [facility] of in Arterial blood 16:00:00 [facility] christa by Pulse oximetry Branch Systolic blood 2021-11-21 122 mm[Hg] manual University of pressure 15:00:00 [facility] Diastolic blood 2021-11-21 54 mm[Hg] manual University o f pressure 15:00:00 [facility] Heart rate 2021-11-21 52 /min University of 15:00:00 [facility] Respiratory rate 2021-11-21 20 /min University of 15:00:00 [facility] Body weight 2021-11-21 92.897 kg [facility] 15:00:00 [facility] BMI 2021-11-21 27.78 kg/m2 [facility] 15:00:00 [facility] Oxygen saturation 2021-11-21 94 /min due to walk into Univer sity of in Arterial blood 15:00:00 [place], wore 2 l/m [place] [facility] by Pulse oximetry pulsed [place]; Branch exercised on RA Systolic blood 2021-11-16 120 mm[Hg] manual; frequent Universit y of pressure 15:00:00 missed beats; [facility] asymptomatic Branch Diastolic blood 2021-11-16 58 mm[Hg] manual; frequent Universi ty of pressure 15:00:00 missed beats; [facility] asymptomatic Branch Heart rate 2021-11-16 58 /min [facility] 15:00:00 [facility] Respiratory rate 2021-11-16 20 /min [facility] 15:00:00 [facility] Body weight 2021-11-16 93.895 kg [facility] 15:00:00 [facility] BMI 2021-11-16 28.07 kg/m2 [facility] 15:00:00 [facility] Oxygen saturation 2021-11-16 89 /min arrived on 2l/m Univers ity of in Arterial blood 15:00:00 pulsed NC; con't [place] [facility] by Pulse oximetry want to exercise Branch on RA; encouraged [facility] Temperature Oral 2019-01-17 97.9 F [facility] rmann (F) 01:21:00 Systolic (mm Hg) 2019-01-17 [facility] rmann 01:21:00 Diastolic (mm Hg) 2019-01-17 [facility] ermann 01:21:00 Height 2019-01-17 182.88 cm [facility] Elliott n 01:18:00 Weight 2019-01-17 [facility] Elliott n 01:18:00 BMI Calculated 2019-01-17 [facility] Herm aby 01:18:00 Respitory Rate 2019-01-17 [facility] Herm aby 01:14:00 Respitory Rate 2019-01-17 [facility] Herm aby 00:10:00 Respitory Rate 2019-01-17 [facility] Herm aby 00:05:00 Systolic (mm Hg) 2019-01-17 [facility] rmann 00:05:00 Diastolic (mm Hg) 2019-01-17 [facility] ermann 00:05:00 Temperature Oral 2019-01-17 98 F [facility] (F) 00:05:00 Systolic (mm Hg) 2019-01-16 [facility] 21:00:00 Diastolic (mm Hg) 2019-01-16 [facility] 21:00:00 Heart Rate 2019-01-16 Ivana Hannahan n 20:16:00 Temperature Oral 2019-01-16 98.0 F [facility] Baldwin rmann (F) 20:16:00 Height 2019-01-16 182.88 cm [facility] n 20:16:00 BMI Calculated 2019-01-16 [facility] 20:16:00 Weight 2019-01-16 [facility] n 20:16:00 Systolic (mm Hg) 2015-09-21 [facility] 16:15:00 Diastolic (mm Hg) 2015-09-21 [facility] 16:15:00 Respitory Rate 2015-09-21 [facility] [...] Time Performing Clinician Source Performed PULMONARY REHAB ITP REPORT 2023-01-23 18:44:00 Doctor Unassigned , [facility] [place] [facility] PULMONARY REHAB ITP REPORT 2023-01-08 21:54:00 Doctor Unassigned , [facility] [place] [facility] PULMONARY REHAB SESSION 2022-12-20 05:00:00 Doctor Unassigned, [facility] REPORT [place] [facility] [place] CONSENT/REFUSAL FOR 2022-11-26 18:42:02 Doctor Unassigned, [facility] DIAGNOSIS AND TREATMENT [facility] [place] PULMONARY REHAB SESSION 2022-11-12 05:00:00 Doctor Unassigned, [facility] REPORT [place] [facility] POCT GLUCOSE (AUTOMATED) 2022-10-23 21:58:00 Terminella, [facility] POCT GLUCOSE (AUTOMATED) 2022-10-23 17:18:00 Terminella, [facility] CBC WITH DIFF 2022-10-23 15:41:00 [facility] POCT GLUCOSE (AUTOMATED) 2022-10-23 12:58:00 Termingurjit [facility] [place] [facility] PHOSPHORUS 2022-10-23 10:52:00 Donna [facility] MAGNESIUM 2022-10-23 10:52:00 [facility] TROPONIN I 2022-10-23 10:52:00 [facility] BASIC METABOLIC PANEL (NA, 2022-10-23 10:52:00 Jaime Thompson [facility] K, CL, CO2, GLUCOSE, BUN, Medica l Branch CREATININE, CA) POCT GLUCOSE (AUTOMATED) 2022-10-23 02:25:00 Terminella, Gabriel [facility] POCT GLUCOSE (AUTOMATED) 2022-10-22 21:44:00 Terminella, Gabriel [facility] POCT GLUCOSE (AUTOMATED) 2022-10-22 17:19:00 Terminella, Gabriel [facility] niversity [facility] POCT GLUCOSE (AUTOMATED) 2022-10-22 13:56:00 Terminella, Gabriel [facility] niversity [facility] PHOSPHORUS 2022-10-22 10:50:00 Donna [facility] MAGNESIUM 2022-10-22 10:50:00 Heidari, Jaime [facility] TROPONIN I 2022-10-22 10:50:00 Jaime Thompson [facility] THYROID STIMULATING 2022-10-22 10:50:00 Jaime Thompson [facility] HORMONE [facility] BASIC METABOLIC PANEL (NA, 2022-10-22 10:50:00 Jaime Thompson [facility] K, CL, CO2, GLUCOSE, BUN, Medica l Branch CREATININE, CA) LIPID PANEL ([id number])(TOTAL 2022-10-22 10:50:00 [facility] CHOLESTEROL, [facility] TRIGLYCERIDES, HDL) CBC WITH DIFF 2022-10-22 10:50:00 Donna [facility] N-TERMINAL PRO-BNP 2022-10-22 10:50:00 Jaime Thompson [facility] POCT GLUCOSE (AUTOMATED) 2022-10-22 01:30:00 TerminDnenys caglei [facility] POCT GLUCOSE (AUTOMATED) 2022-10-21 22:12:00 [facility] ([facility]OMATED) 2022-10-21 17:57:00 [facility] TRANSTHORACIC ECHO (TTE) 2022-10-21 16:48:34 Jaime Thompson [facility] POCT GLUCOSE (AUTOMATED) 2022-10-21 10:56:00 [facility] Gabriel [facility] POCT GLUCOSE (AUTOMATED) 2022-10-21 10:35:00 Terminella, Gabriel U [facility] PHOSPHORUS 2022-10-21 07:52:00 Termingurjit, [facility] MAGNESIUM 2022-10-21 07:52:00 [facility] BASIC METABOLIC PANEL (NA, 2022-10-21 07:52:00 [facility] K, CL, CO2, GLUCOSE, BUN, Medica l Branch CREATININE, CA) CBC WITH DIFF 2022-10-21 07:52:00 [facility] ([facility]OMATED) 2022-10-21 04:32:00 TerminGabriel cagle [facility] POCT GLUCOSE (AUTOMATED) 2022-10-20 22:14:00 Gabriel Leblanc U [facility] LACTIC ACID WHOLE BLOOD 2022-10-20 21:40:00 Gabriel Leblanc [facility] AC ABG + LACTIC ACID 2022-10-20 18:22:00 Gabriel Leblanc [facility] POCT GLUCOSE (AUTOMATED) 2022-10-20 16:59:00 TerminGabriel cagle [facility] POCT GLUCOSE (AUTOMATED) 2022-10-20 11:10:00 Gabriel Leblanc [facility] AC PANEL 20 + LACTIC ACID 2022-10-20 09:40:00 Fantasma Reaves [facility] MAGNESIUM 2022-10-20 08:27:00 Jelly [facility] BASIC METABOLIC PANEL (NA, 2022-10-20 08:27:00 Fantasma Reaves [facility] K, CL, CO2, GLUCOSE, BUN, Medica l Branch CREATININE, CA) CBC WITH DIFF 2022-10-20 08:27:00 Jelly [facility] POCT GLUCOSE (AUTOMATED) 2022-10-20 04:54:00 Gabriel Leblanc [facility] POCT GLUCOSE (AUTOMATED) 2022-10-19 23:08:00 Gabriel Leblanc [facility] TROPONIN I 2022-10-19 21:17:00 [facility]AST 2022-10-19 19:10:35 Gabriel Leblanc [facility] POCT GLUCOSE (AUTOMATED) 2022-10-19 18:02:00 Gabriel Leblanc U [facility] AC PANEL 20 + LACTIC ACID 2022-10-19 16:11:00 Deana [facility] PROTHROMBIN TIME / INR 2022-10-19 15:47:00 Gabriel Leblanc [facility]Formerly [facility] PHOSPHORUS 2022-10-19 15:16:00 Gabriel Leblanc [facility] MAGNESIUM 2022-10-19 15:16:00 Gabriel Leblanc [facility] TROPONIN I 2022-10-19 15:16:00 [facility] MRSA / MSSA SCREEN BY PCR, 2022-10-19 15:16:00 Deana Gabriel [facility] POCT GLUCOSE (AUTOMATED) 2022-10-19 14:32:00 Doctor Unassigned, [facility] [place] [facility] XR CHEST 1 VW 2022-10-19 13:04:33 Elsy Slater [facility] XR CHEST 1 2022-10-19 12:06:54 Anna Marie Buck [facility] AR INTUBATION ENDOTRACHEAL 2022-10-19 11:53:39 Anna Marie Buck [facility] EMERGENCY PROCEDURE Medical Bran ch ACUTE CARE ARTERIAL BLOOD 2022-10-19 11:02:00 Anna Marie Buck [facility] GAS [facility] XR CHEST 1 VW 2022-10-19 09:32:49 Anna Marie Buck [facility] AC PANEL 20 + LACTIC ACID 2022-10-19 09:24:00 Anna Marie Buck [facility] COVID-19 (ID NOW RAPID 2022-10-19 09:13:00 Anna Marie Buck [facility] TESTING) [facility] LAB ONLY COVID 2022-10-19 09:13:00 Anna Marie Buck [facility] INTERPRETATION [facility] BLOOD CULTURE SCREEN 2022-10-19 09:08:00 Anna Marie Buck [facility] LIPASE 2022-10-19 09:08:00 Anna Marie Buck [facility] TROPONIN I 2022-10-19 09:08:00 Anna Marie Buck [facility] COMP. METABOLIC PANEL 2022-10-19 09:08:00 Anna Marie Buck [facility] ([id number] CBC WITH DIFF 2022-10-19 09:08:00 Anna Marie Buck [facility] N-TERMINAL PRO-BNP 2022-10-19 09:08:00 Anna Marie Buck [facility] HB ECG ROUTINE & RHYTHM 2022-10-19 08:56:23 Anna Marie Buck [facility] CRITICAL CARE 2022-10-19 08:47:00 Anna Marie Buck [facility] POCT GLUCOSE (AUTOMATED) 2022-10-09 22:29:00 Fredo Trinidad [facility] POCT GLUCOSE (AUTOMATED) 2022-10-09 21:48:00 Fredo Trinidad [facility] POCT GLUCOSE (AUTOMATED) 2022-10-09 16:38:00 Fredo Trinidad [facility] POCT GLUCOSE (AUTOMATED) 2022-10-09 13:08:00 Fredo Trinidad [facility] MAGNESIUM 2022-10-09 10:17:00 Andres [facility] BASIC METABOLIC PANEL (NA, 2022-10-09 10:17:00 Doug Campos [facility] K, CL, CO2, GLUCOSE, BUN, Medica l Branch CREATININE, CA) N-TERMINAL PRO-BNP 2022-10-09 10:17:00 Andres [facility] POCT GLUCOSE (AUTOMATED) 2022-10-09 02:03:00 Fredo Trinidad [facility] POCT GLUCOSE (AUTOMATED) 2022-10-08 21:54:00 Fredo Trinidad [facility] POCT GLUCOSE (AUTOMATED) 2022-10-08 20:03:00 Fredo Trinidad [facility] MAGNESIUM 2022-10-08 10:02:00 Fredo Trinidad [facility] BASIC METABOLIC PANEL (NA, 2022-10-08 10:02:00 Fredo Trinidad [facility] K, CL, CO2, GLUCOSE, BUN, Medica l Branch CREATININE, CA) CBC WITH DIFF 2022-10-08 10:02:00 Fredo Trinidad [facility] GLYCOSYLATED HEMOGLOBIN 2022-10-08 10:02:00 Doug Campos [facility] (A1C) [facility] N-TERMINAL PRO-BNP 2022-10-08 10:02:00 Dariana Pulido [facility] MAGNESIUM 2022-10-07 09:45:00 Amos [facility] BASIC METABOLIC PANEL (NA, 2022-10-07 09:45:00 Fredo Trinidad [facility] K, CL, CO2, GLUCOSE, BUN, Medica l Branch CREATININE, CA) VITAMIN B12, LEVEL 2022-10-06 10:13:00 Amos [facility] FOLATE 2022-10-06 10:13:00 Amos [facility] COMP. METABOLIC PANEL 2022-10-06 10:13:00 Faina Zelaya [facility] ([id number]) Medical [place] CBC WITH DIFF 2022-10-06 10:13:00 Faina Zelaya [facility] N-TERMINAL PRO-BNP 2022-10-06 10:13:00 Faina Zelaya [facility] PROCALCITONIN 2022-10-06 10:13:00 Faina Zelaya [facility] EKG-12 LEAD 2022-10-05 21:55:22 Jo-Ann Whitehead [facility] COVID-19 (ID NOW RAPID 2022-10-05 21:14:00 Jo-Ann Whitehead [facility] TESTING) Medical Branch LAB ONLY COVID 2022-10-05 21:14:00 Jo-Ann Whitehead [facility] URINALYSIS 2022-10-05 20:48:00 Jo-Ann Whitehead [facility] XR CHEST 1 VW 2022-10-05 20:03:53 Jo-Ann Whitehead [facility] MAGNESIUM 2022-10-05 19:43:00 Jo-Ann Whitehead [facility] TROPONIN I 2022-10-05 19:43:00 Jo-Ann Whitehead [facility] COMP. METABOLIC PANEL 2022-10-05 19:43:00 Jo-Ann Whitehead [facility] ([id number]) [facility] CBC WITH DIFF 2022-10-05 19:43:00 Jo-Ann Whitehead [facility] N-TERMINAL PRO-BNP 2022-10-05 19:43:00 Jo-Ann Whitehead [facility] y of [facility] HOSPITAL ADMISSION 2022-10-05 05:01:00 Doctor Unassigned, [facility] Name [facility] POCT HEMOGLOBIN A1C TEST 2022-10-01 16:30:00 Dwight Can [facility] PATIENT FINANCIAL 2022-10-01 15:29:54 [facility] [place] [facility] POCT GLUCOSE (AUTOMATED) 2022-09-18 21:53:00 Fredo Trinidad [facility] POCT GLUCOSE (AUTOMATED) 2022-09-18 17:19:00 Fredo Trinidad [facility] URINALYSIS 2022-09-18 16:20:00 Darius Hoffman [facility] POTASSIUM, URINE RANDOM 2022-09-18 16:20:00 Darius Hoffman [facility] SODIUM, URINE RANDOM 2022-09-18 16:20:00 Darius Hoffman [facility] CHLORIDE, URINE RANDOM 2022-09-18 16:20:00 Darius Hoffman [facility] PROTEIN CREAT RATIO URINE 2022-09-18 16:20:00 Darius Hoffman [facility] CT HEAD WO CONTRAST 2022-09-18 15:02:14 Faina Zelaya [facility] POCT GLUCOSE (AUTOMATED) 2022-09-18 13:06:00 Fredo Trinidad [facility] AMMONIA, PLASMA 2022-09-18 10:29:00 Faina Zelaya [facility] PHOSPHORUS 2022-09-18 10:28:00 Darius Hoffman [facility] URIC ACID 2022-09-18 10:28:00 Darius Hoffman [facility] CORTISOL AM 2022-09-18 10:28:00 Faina Zleaya [facility] VITAMIN B12, LEVEL 2022-09-18 10:28:00 Faina Zelaya [facility] FOLATE 2022-09-18 10:28:00 Faina Zelaya [facility] TROPONIN I 2022-09-18 10:28:00 Fredo Trinidad [facility] FREE T4 2022-09-18 10:28:00 Faina Zelaya [facility] THYROID STIMULATING 2022-09-18 10:28:00 Faina Zelaya [facility] HORMONE [facility] COMP. METABOLIC PANEL 2022-09-18 10:28:00 Darius Hoffman [facility] ([id number]) [facility] CBC WITH DIFF 2022-09-18 10:28:00 Darius Hoffman [facility] POCT GLUCOSE (AUTOMATED) 2022-09-18 01:46:00 Fredo Trinidad [facility] EKG-12 LEAD 2022-09-17 23:08:07 Elsy Slater [facility] URINALYSIS 2022-09-17 23:05:00 Elsy Slater [facility] URINE DRUG (IMMUNOASSAY) - 2022-09-17 23:05:00 Elsy Slater [facility] COMPREHENSIVE DRUG SCREEN Medica l Branch W/O REFLEX AC PANEL 21 + LACTIC ACID 2022-09-17 22:10:00 Elsy Slater [facility] XR CHEST 1 VW 2022-09-17 21:35:55 Elsy Slater [facility] AC PANEL 21 + LACTIC ACID 2022-09-17 21:17:00 Elsy Slater [facility] LIPASE 2022-09-17 20:08:00 Elsy Slater [facility] MAGNESIUM 2022-09-17 20:08:00 Elsy Slater [facility] TROPONIN I 2022-09-17 20:08:00 Elsy Slater [facility] COMP. METABOLIC PANEL 2022-09-17 20:08:00 Elsy Slater [facility] ([id number]) Medical [place] CBC WITH DIFF 2022-09-17 20:08:00 Elsy Slater [facility] POCT GLUCOSE(AGE >30DAYS) 2022-09-17 20:08:00 Elsy Slater [facility] N-TERMINAL PRO-BNP 2022-09-17 20:08:00 Elsy Slater [facility] AC PANEL 21 + LACTIC ACID 2022-09-17 20:08:00 Elsy Slater [facility] POCT GLUCOSE (AUTOMATED) 2022-09-17 20:07:00 Elsy Slater [facility] [id number] 2022-08-25 00:00:00 [facility] [id number] 2022-08-25 00:00:00 [facility] [id number] 2022-08-25 00:00:00 [facility] MEDICATION CORRESPONDENCE 2022-08-24 05:01:00 Doctor Eliza, [facility] [place] AUTHORIZATION FOR RELEASE 2022-05-30 05:01:00 Doctor Eliza, [facility] Name [facility] AUTHORIZATION FOR RELEASE 2022 06:01:00 Doctor Unadominick, [facility] [place] [facility] PHYSICIAN ORDERS 2022-04-16 06:01:00 Doctor Eliza, [facility] Name Medical [place] DME/SUPPLY JUSTIFICATION 2022-04-06 06:01:00 Doctor Eliza [facility] Name Medical [place] ASSIGNMENT OF BENEFITS 2022-03-08 19:44:47 [facility] [place] [facility] PHYSICIAN ORDERS 2022-02-12 06:01:00 Doctor Eliza [facility] Name Medical Branch MEDICATION CORRESPONDENCE 2022-02-05 06:01:00 Doctor Unasscatalina, [facility] Name Medical Branch MEDICATION CORRESPONDENCE 2021-12-22 05:01:00 Doctor Unadominick, [facility] Name Medical Branch FLU 2021-12-06 19:32:57 Liborio Hall [facility] VACC(),65+YR,0.5 Medica l Branch ML,IM,ADJUVANTED,QUAD(FLUA D) PULMONARY REHAB ITP REPORT 2021-12-05 20:50:00 Doctor Eliza , [facility] [place] [facility] FUNGUS (ROUTINE) CULTURE 2021-11-28 19:49:00 Neeta Del Toro [facility] PULMONARY REHAB SESSION 2021-11-24 05:00:00 [facility] [place] [facility] NO SHOW OR MISSED 2021-11-02 05:01:00 Doctor Carlos Kay [facility] APPOINTMENT POLICY [place] Medical [facility] h ACKNOWLEDGEMENT Colonoscopy<sup>1, 2</sup> 2015-09-21 05:00:00 M anne Marshall Diabetic foot examination 2014-09-17 05:00:00 Pr morijennifer Marshall Operation<sup>4</sup> 2014-07-02 05:00:00 Pretty al Hudson Appendectomy [facility] Rolando Cervical laminoplasty with Memor ial Rolando decompression of spinal cord Encounters Start End Encounter Admission Attending Care Care Encounter Source Date/Time Date/Time Type Type Clinicians Facility Department ID 2020-12-31 Emergency [facility] [id number] Univers 13:27:36 ity [facility] 2020-12-30 Emergency [facility] [id number] Univers 15:37:20 [facility] 2023-01-29 2023-01-29 Outpatient R YA QUINTANA [facility] 10 [id number] Univers 09:30:00 10:34:36 YA QUINTANA i ty of [facility] 2023-01-29 2023-01-29 Office Bairon [facility] [id number] Univers 09:30:00 10:34:36 Visit Ya PACHECO [id number] i ty [facility] [id number] Jose Maria ARIAS [phone] Pr dical NAL 5 [facility] 2023-01-23 2023-01-23 Orders Doctor PULLIAM [id number] Univers 00:00:00 00:00:00 Only Unassigned, TOYA [id number] ity of [place] [facility] [id number] Adelso as [id number] [address] 2023-01-22 2023-01-22 Ancillary Therapist, Adc Pulmonary [facility] [id number] [id number] Univers 13:00:00 13:30:00 Visit Ya Quintana [id number] ity of [id number] [id number] [facility] [address] [facility] 2023-01-22 2023-01-22 Outpatient R YA QUINTANA [facility] 10 [id number] Univers 13:00:00 13:00:00 YA QUINTANA i ty of [facility] 2023-01-16 2023-01-16 Telephone Bairon [facility] [id number] Univers 00:00:00 00:00:00 Ya PACHECO [id number] i ty [id number] [id number] [facility] [address] [facility] 2023-01-15 2023-01-15 Telephone Kenneth [facility] [id number] Univers 00:00:00 00:00:00 Summer C [place] [id number] i ty [id number] [id number] [facility] [address] [facility] 2023-01-08 2023-01-08 Orders Doctor REYES [id number] [id number] Univers 00:00:00 00:00:00 Only Unassigned, TOYA [id number] ity of [place] [facility] [id number] Adelso as [phone] [address] 2023-01-07 2023-01-07 Telephone [facility] [id number] Univers 00:00:00 00:00:00 Summer C [place] [id number] i [facility] [id number] [phone] Pr dical NAL 296 [facility] 2023-01-02 2023-01-02 Telephone Bairon [facility] [id number] Univers 00:00:00 00:00:00 Ya PACHE[place] [id number] i [facility] [id number] [id number] Pr dical NAL 0[address] [facility] 2023-01-01 2023-01-01 [facility]phone [facility] [id number] Univers 00:00:00 00:00:00 Summer C [place] [id number] i ty [id number] [phone] Pr dical NAL 296 [facility] 2023-01-01 2023-01-01 Telephone [facility] [id number] Univers 00:00:00 00:00:00 Summer C [place] [id number] i ty [place] [id number] Pr dical NAL 296 [facility] 2022-12-26 2022-12-26 Outpatient R YA QUINTANA [facility] 10 [id number] Univers 13:00:00 15:16:23 YA QUINTANA i ty of [facility] 2022-12-26 2022-12-26 Ancillary Therapist, Adc Pulmonary [facility] 1.2.840.114 [id number] Univers 13:00:00 15:16:23 Visit Ya Quintana 350.1.13.10 [facility] [place] [id number] Pr dical NAL 296 [facility] 2022-12-26 2022-12-26 Telephone [facility] [id number] Univers 00:00:00 00:00:00 Dariana [place] 350.1.13.10 ity of [place] [id number] Pr dical NAL 059 [facility] 2022-12-25 2022-12-25 Ancillary Therapist, Adc Pulmonary [facility] 1.2.840.114 [id number] Univers 13:15:00 16:05:56 Visit Bairon Ya PAC[place] 350.1.13.10 [facility] 4[place] [id number] Pr dical NAL 296 [facility] 2022-12-20 2022-12-20 Ancillary Therapist, [facility] Pulmonary [facility] 1.2.840.114 [id number] Univers 13:15:00 15:41:36 Visit Quintana Ya [place] 350.1.13.10 ity of [place] [id number] [facility] [address] [facility] 2022-12-20 2022-12-20 Orders Doctor REYES 1.2.840.114 [id number] Univers 00:00:00 00:00:00 Only Unassigned, TOYA 350.1.13.10 [facility] [id number] Adelso as [phone] [address] 2022-12-17 2022-12-17 Telephone Kenneth [facility] [id number] Univers 00:00:00 00:00:00 Summer C [place] 350.1.13.10 i ty [facility] [place] [id number] Pr dicmd NAL 296 [facility] 2022-12-11 2022-12-11 Telephone Bairon [facility] [id number] Univers 00:00:00 00:00:00 Ya PACHE[place] 350.1.13.10 i ty of [place] [phone] Pr dicjennifer NAL 085 [facility] 2022-12-11 2022-12-11 Telephone Kenneth [facility] [id number] Univers 00:00:00 00:00:00 Summer C [place] 350.1.13.10 i ty of [place] [id number] Pr dical NAL 296 [facility] 2022-12-05 2022-12-05 Telephone [facility] [id number] Univers 00:00:00 00:00:00 Summer C [place] 350.1.13.10 i ty [facility] 4[place] [phone] Pr dical NAL 296 [facility] 2022-12-03 2022-12-03 Telephone [facility] [id number] Univers 00:00:00 00:00:00 Summer C [place] 350.1.13.10 i ty [facility] 4[place] [phone] Pr dical NAL [address] [place] [address] 2022-11-29 2022-11-29 Telephone [facility] 1.2.840.114 [id number] Univers 00:00:00 00:00:00 Liborio PAC[place] 350.1.13.10 i ty [facility] [place] [id number] Pr dical NAL 044 [facility] 2022-11-28 2022-11-28 Outpatient R YA QUINTANA [facility] 10 [id number] Univers 13:00:00 14:28:55 YA QUINTANA i ty of [facility] 2022-11-28 2022-11-28 Ancillary Therapist, Adc Pulmonary [facility] 1..840.114 [id number] Univers 13:00:00 14:28:55 Visit Ya Quintana 350.1.13.10 [facility]y [facility] [place] [id number] Pr dical NAL [address] [place] [address] 2022-11-26 2022-11-26 Emergency X Jo-Ann WHITEHEAD [facility] ERT [id number] Univers 14:01:00 15:16:00 ity of [facility] 2022-11-26 2022-11-26 Emergency Jo-Ann Whitehead [facility] 1.2.840.114 [id number] Univers 14:01:00 15:16:00 Dianna JUNIOR 350.1.13.10 i ty [place] [id number] [facility] 084 [place] 2022-11-21 2022-11-21 Telephone Cooper [facility] [id number] Univers 00:00:00 00:00:00 Summer Jc PAC[place] 350.1.13.10 i ty [place] [id number] Pr dical NAL 296 [facility] 2022-11-20 2022-11-20 Ancillary Levy Debbie Emily [facility] 1.2.840. 114 [id number] Univers 17:00:00 18:00:00 Visit Hasmukh Etienne 350.1.13.10 ity of [place] [id number] Pr dical NAL 179 [facility] 2022-11-20 2022-11-20 Outpatient R HASMUKH ETIENNE [facility] [id number] Univers 17:00:00 17:00:00 HASMUKH ETIENNE ity [facility] 2022-11-19 2022-11-19 Ancillary Therapist, Adc Pulmonary [facility] 1.2.840.114 [id number] Univers 13:00:00 13:47:57 Visit Dwight Can 350.1.13.1 0 ity of [place] [phone] Pr dical NAL 296 [facility] 2022-11-15 2022-11-15 Ancillary Pauline Henry [facility] [facility] 1.2.840.1 14 [id number] Univers 14:30:00 15:06:03 Visit Hasmukh Etienne 350.1.13.10 ity of [place] [id number] Pr dical NAL 179 [facility] 2022-11-14 2022-11-14 Ancillary Therapist, Adc Pulmonary [facility] 1.2.840.114 [id number] Univers 13:00:00 14:14:24 Visit Ya Quintana 350.1.13.10 ity of [place] [phone] Pr dical NAL 296 [facility] 2022-11-13 2022-11-13 Ancillary Pauline Henry [facility] 1.2.840.1 14 [id number] Univers 11:00:00 11:55:53 Visit Hasmukh Etienne 350.1.13.10 ity of [place] [phone] Pr dical NAL 179 [facility] 2022-11-12 2022-11-12 Ancillary Therapist, Adc Pulmonary [facility] 1.2.840.114 [id number] Univers 13:00:00 13:59:26 Visit Ya Quintana 350.1.13.10 [facility] [place] [phone] Pr dical NAL 296 [facility] 2022-11-12 2022-11-12 Orders Doctor REYES 1.2.840.114 [id number] Univers 00:00:00 00:00:00 Only Unassigned, TOYA 350.1.13.10 ity of [place] [facility] 4.2.7.2.686 [place] [id number] [address] 2022-11-12 2022-11-12 Telephone Bairon [facility] 1.2.733.092 [id number] Univers 00:00:00 00:00:00 Ya PACHECO 350.1.13.10 i ty [facility] [place] [phone] Pr dical NAL 085 [facility] 2022-11-09 2022-11-09 Ancillary Therapist, Adc Pulmonary [facility] 1.2.840.114 [id number] Univers 13:30:00 16:20:03 Visit Ya Quintana 350.1.13.10 ity of [place] [phone] Pr dical NAL 296 [facility] 2022-11-09 2022-11-09 Outpatient R YA QUINTANA [facility] 10 [id number] Univers 10:30:00 11:02:41 YA QUINTANA i ty of [facility] 2022-11-09 2022-11-09 Office [facility] 1.2.840.114 [id number] Univers 10:30:00 11:02:41 Visit Ya PACHECO 350.1.13.10 i ty [facility] [place] [phone] [facility] NAL 085 [facility] 2022-11-09 2022-11-09 Telephone [facility] 1.2.467.538 [id number] Univers 00:00:00 00:00:00 Summer C [place] 350.1.13.10 i ty [facility] [place] [phone] [facility] 296 [facility] 2022-11-06 2022-11-06 Ancillary Pauline Henry [facility] 1.2.840.1 14 [id number] Univers 13:00:00 14:04:12 Visit Michel-Dwight Kaur [place] 350.1.13.1 0 [facility] [place] [phone] [facility] NAL 179 [facility] 2022-10-31 2022-10-31 Outpatient R ISABEL [facility] [id number] [id number] Univers 14:00:00 14:00:00 LIBORIO ity [facility] 2022-10-31 2022-10-31 Telephone [facility] 1.2.544.829 [id number] Univers 00:00:00 00:00:00 Summer C [place] 350.1.13.10 i ty [facility] 4[place] [phone] [facility] 296 [facility] 2022-10-24 2022-10-24 Transition MELANIE Mejia .2.840.114 105 [id number] Univers 00:00:00 00:00:00 of Care Jared A VICK[place] 350.1.13.10 [place] of [place]2.[place] [phone] [facility] [address] 2022-10-19 2022-10-23 Inpatient [facility] TATE [id number] Univers 03:50:00 17:17:00 GIORGI ity of [facility] 2022-10-19 2022-10-23 Hospital Anna Marie Buck [facility] 1.2.840. 114 [id number] Univers 03:50:00 17:17:00 Encounter Elsy Slater [facility] 350.1.13. 10 ity of Gabriel Leblanc 4.2.7.2.686 [facility] [phone] [address] ([facility]) 2022-10-17 2022-10-17 Telephone Kenneth [facility] 1.2.699.979 [id number] Univers 00:00:00 00:00:00 Summer PACHECO 350.1.13.10 i ty of [place] [phone] Pr dic[address] 2022-10-15 2022-10-15 Outpatient R TESS [facility] [id number] Univers 11:00:00 11:00:00 DARIANA ity o f [facility] 2022-10-10 2022-10-10 Transition MELANIE Ty 1.2.840.114 [id number] Univers 00:00:00 00:00:00 of Care Nydia VICKERS 350.1.13.10 it y [place] [phone] [facility] [address] [place] 2022-10-10 2022-10-10 Patient Doctor REYES 1.2.840.114 [id number] Univers 00:00:00 00:00:00 Secure Msg Unassigned, TOYA 350.1.13.10 ity of [place] [facility] 4.2.7.2.686 [place] [id number] [facility] [address] 2022-10-05 2022-10-09 [facility] [id number] Univers 14:24:00 18:50:00 FREDO ity [facility] 2022-10-05 2022-10-09 Hospital Jo-Ann Whitehead [facility] 1.2.840.1 14 [id number] Univers 14:24:00 18:50:00 Encounter Fredo Trinidad JUNIOR 350.1.13.10 it[place] [id number] [facility] [address] [place] 2022-10-02 2022-10-02 Patient Gurpreet [facility] 1.2.840.114 [id number] Univers 00:00:00 00:00:00 Outreach Lu Mcqueen JUNIOR 350.1.13.10 it[place] of [place] [phone] [address] 2022-10-01 2022-10-01 Outpatient R OBI-DWIGHT KAUR [facility] [id number] [facility] 10:40:00 11:48:31 OBI-DWIGHT KAUR [facility] 2022-10-01 2022-10-01 Office Obi-Jose D [facility] 1.2.840.114 10 [id number] Univers 10:40:00 11:48:31 Visit , Dwight PACHECO 350.1.13.10 i ty of [place] [phone] [address] 2022-10-01 2022-10-01 Orders Doctor REYES 1.2.840.114 [id number] Univers 00:00:00 00:00:00 Only Unassigned, TOYA 350.1.13.10 ity of [place] [facility] 4.2.7.2.686 [place]so as [phone] [facility] [address] [place] 2022-10-01 2022-10-01 Telephone Obi-Jose D [facility] 1.2.840.114 [id number] Univers 00:00:00 00:00:00 , Dwight PACHECO 350.1.13.10 i ty of [place] [phone] Pr dical NAL [address] [facility] 2022-09-19 2022-09-19 Transition MELANIE Ty 1.2.840.114 [id number] Univers 00:00:00 00:00:00 of Care Nydia VICKERS 350.1.13.10 it y of [place] [phone] [facility] [address] 2022-09-19 2022-09-19 Patient Doctor REYES 1.2.840.114 [id number] Univers 00:00:00 00:00:00 Secure Msg Unassigned, TOYA 350.1.13.10 ity of [place] [facility] 4.2.7.2.686 [place] as [id number] [facility] [address] 2022-09-17 2022-09-18 Inpatient X AMOS [facility] TATE [id number] Univers 14:51:00 19:08:00 FREDO ity of [facility] 2022-09-17 2022-09-18 [facility] Elsy Slater [facility] 1.2.84 0.114 [id number] Univers 14:51:00 19:08:00 Encounter Fredo Trinidad 350.1.13.10 it[place] of [place] [id number] [facility] [address] [place] 2022-09-10 2022-09-10 Refindy Hall [facility] 1.2.840.114 [id number] Univers 00:00:00 00:00:00 Liborio PACHE[place] 350.1.13.10 i ty [facility] 4[place] [phone] Pr dical NAL [address] [facility] 2022-08-21 2022-08-26 Inpatient EM JAIME LopesVA TELE [id number] [facility] 16:50:00 20:12:00 Caren Gan [facility] 2022-08-24 2022-08-24 Orders Doctor REYES 1.2.840.114 [id number] Univers 00:00:00 00:00:00 Only Unassigned, TOYA 350.1.13.10 ity of [place] [facility]OSPITAL 4.2.7.2.686 [place] as [phone] [facility] [address] 2022-08-21 2022-08-21 Outpatient ROXANE Lopes LABO [id number] [facility] 23:54:00 23:54:00 Caren 25 [facility] 2022-08-15 2022-08-15 Telephone Bairon [facility] 1.2.417.220 [id number] Univers 00:00:00 00:00:00 Ya PACHECO 350.1.13.10 i ty [place] [phone] Pr dical NAL 085 [facility] 2022-08-10 2022-08-10 Outpatient R ISABEL [facility] [id number] Univers 13:20:00 13:20:00 PETER rosi [facility] 2022-07-09 2022-07-09 Outpatient R YA QUINTANA [facility] 10 [id number] Univers 10:00:00 10:00:00 YA QUINTANA i ty of [facility] 2022-06-20 2022-06-20 [facility] 1.2.840.114 [id number] Univers 00:00:00 00:00:00 Liborio PACHECO 350.1.13.10 i ty of [place] [phone] Pr dical NAL 044 [facility] 2022-06-03 2022-06-03 [facility] 1.2.840.114 101 [id number] Univers 00:00:00 00:00:00 Liborio PACHECO 350.1.13.10 i ty [place] [id number] Pr dical NAL 044 [facility] 2022-06-02 2022-06-02 Ref[facility] 1.2.840.114 [id number] Univers 00:00:00 00:00:00 Jaxon TREJO 350.1.13.10 i ty of [facility] [place] [id number] [facility] [address] 2022-05-30 2022-05-30 Orders Doctor PULLIAM 1.2.840.114 [id number] Univers 00:00:00 00:00:00 Only Unassigned, TOYA 350.1.13.10 ity of [place] [facility]OSPITAL 4.2.7.2.686 [place] as [id number] [facility] [address] [place] 2022 2022 Orders Doctor PULLIAM 1.2.840.114 [id number] Univers 00:00:00 00:00:00 Only Unassigned, TOYA 350.1.13.10 ity of [place] [facility]OSPITAL 4.2.7.2.686 [place] [id number] [address] 2022-04-27 2022-04-27 Telephone Isabel [facility] 1.2.840.114 1 [id number] Univers 00:00:00 00:00:00 Liborio PACHECO 350.1.13.10 i ty [facility] [place] 594.7529165 Pr dical NAL 044 [facility] 2022-04-16 2022-04-16 Frame Feeder 2, Adc Lab [facility] 1.2.840.114 [id number] Univers 10:45:00 11:00:00 Visit Dariana Pulido 350.1.13.10 ity of [place] 4.2.7.2.686 [facility] TylerESSIO [phone] Me dical NAL 353 [facility] 2022-04-16 2022-04-16 Outpatient R SAYRA [facility] [id number] Univers 10:45:00 10:45:00 MARAL ity [facility] 2022-04-16 2022-04-16 Office [facility] 1.2.840.114 [id number] Univers 10:20:00 10:40:00 Visit Dariana PACHECO 350.1.13.10 ity [facility] [place] [phone] Me dical NAL 059 [facility] 2022-04-16 2022-04-16 Orders Doctor PULLIAM 1.2.840.114 [id number] Univers 00:00:00 00:00:00 Only Unassigned, TOYA 350.1.13.10 ity of [facility] 4.2.7.2.686 [place] [id number] [facility] [address] [place] 2022-04-13 2022-04-13 Nurse Annette PULLIAM 1.2.840.114 [id number] Univers 00:00:00 00:00:00 Triage TOYA Fenrandez 350.1.13.10 ity of [facility] 4.2.7.2.686 [place] [id number] [facility] [address] [place] 2022-04-12 2022-04-12 Office [facility] 1.2.840.114 [id number] Univers 13:00:00 13:40:00 Visit Liborio PACHECO 350.1.13.10 i ty [facility] [place]2.[place] [phone] Pr dical NAL 044 [facility] 2022-04-12 2022-04-12 Out[facility] [id number] Univers 13:00:00 13:00:00 LIBORIO aradna [facility] 2022-04-11 2022-04-11 Nurse REYES Núñez 1.2.840.114 [id number] Univers 00:00:00 00:00:00 Triage Selene PITTMAN 350.1.13.10 ity of [facility] 4.2.7.2.686 [place] [phone] [address] 2022-04-10 2022-04-10 Frame Feeder 2, Adc Lab [facility] 1.2.840.114 [id number] Univers 14:30:00 14:45:00 Visit Liborio Hall 350.1.13.10 ity [facility] [place]7.2.[place] [phone] Pr dical NAL 353 [facility] 2022-04-10 2022-04-10 Outpatient R [facility] 1043 [id number] Univers 14:30:00 14:30:00 LIBORIO aranda [facility] 2022-04-10 2022-04-10 Telephone [facility] 1.2.840.114 1 [id number] Univers 00:00:00 00:00:00 Liborio PACHECO 350.1.13.10 i ty of [place] 697.5919719 Pr dical NAL 044 [facility] 2022-04-06 2022-04-06 Telephone [facility] 1.2.840.114 1 [id number] Univers 00:00:00 00:00:00 Liborio PACHECO 350.1.13.10 i ty of [place] [id number] Pr dical NAL 044 [facility] 2022-04-06 2022-04-06 Orders Doctor REYES 1.2.840.114 [id number] Univers 00:00:00 00:00:00 Only Unassigned, TOYA 350.1.13.10 ity of [place] [facility] 4.2.7.2.686 [place] [phone] [address] 2022-04-05 2022-04-05 Telephone [facility] 1.2.190.818 [id number] Univers 00:00:00 00:00:00 Ya PACHECO 350.1.13.10 i ty of [place] 357.7965644 Pr dical NAL 085 [facility] 2022-03-27 2022-03-27 Refill [facility] 1.2.840.114 [id number] Univers 00:00:00 00:00:00 Liborio PACHECO 350.1.13.10 i ty of [place] [phone] Pr dical NAL 044 [facility] 2022-03-26 2022-03-26 Telephone [facility] 1.2.840.114 1 [id number] Univers 00:00:00 00:00:00 Liborio PACHECO 350.1.13.10 i ty of [place] 442.0050344 Pr dical NAL 044 [facility] 2022-03-19 2022-03-19 Refill [facility] 1.2.840.114 [id number] Univers 00:00:00 00:00:00 Liborio PACHE[place] 350.1.13.10 i ty [facility] 4.2.7.2.[place] [phone] Pr dical NAL 044 [facility] 2022-03-11 2022-03-11 Refill [facility] 1.2.840.114 [id number] Univers 00:00:00 00:00:00 Ya PACHECO 350.1.13.10 i ty of [place].2.[place] [id number] Pr dicmd NAL 085 [facility] 2022-03-08 2022-03-08 [facility] [id number] Univers 14:40:00 16:00:29 LIBORIO aranda [facility] 2022-03-08 2022-03-08 Office [facility] 1.2.840.114 [id number] Univers 14:40:00 16:00:29 Visit Liborio PACHECO 350.1.13.10 i ty of [place] [id number] Pr dical NAL 044 [facility] 2022-03-08 2022-03-08 Office [facility] 1.2.840.114 [id number] Univers 14:00:00 14:20:00 Visit Liborio PACHECO 350.1.13.10 i ty of [place]7.2.[place] [phone] Pr dical NAL 044 [facility] 2022-03-08 2022-03-08 Orders Doctor REYES 1.2.840.114 [id number] Univers 00:00:00 00:00:00 Only Unassigned, TOYA 350.1.13.10 ity of [place] [facility] 4.2.7.2.686 [place] as [phone] [address] 2022-03-05 2022-03-05 Frame Feeder 2, Adc Lab [facility] 1.2.840.114 [id number] Univers 13:00:00 13:15:00 Visit Liborio Hall 350.1.13.10 ity [facility] 4.2.7.2.[place] [phone] Pr dical NAL 353 [facility] 2022-03-05 2022-03-05 Outpatient R ISABEL [facility] [id number] Univers 13:00:00 13:00:00 LIBORIO aranda [facility] 2022-03-05 2022-03-05 Patient Doctor REYES 1.2.840.114 [id number] Univers 00:00:00 00:00:00 Secure Msg Unassigned, TOYA 350.1.13.10 [facility] [facility] 4.2.7.2.686 Adel[place] as [phone] [address] 2022-02-20 2022-02-20 Refill [facility] 1.2.840.114 [id number] Univers 00:00:00 00:00:00 Liborio PACHECO 350.1.13.10 i ty of [place] [phone] Pr dical NAL 044 [facility] 2022-02-12 2022-02-12 Frame Feeder 2, Adc Lab [facility] 1.2.840.114 [id number] Univers 14:30:00 14:45:00 Visit Maral Garsia 350.1.13.10 ity [facility] 4.2.7.2.[place] [id number] Pr dical NAL 353 [facility] 2022-02-12 2022-02-12 Outpatient R SAYRA [facility] [id number] Univers 14:30:00 14:30:00 MARAL aranda [facility] 2022-02-12 2022-02-12 Refill Bairon [facility] 1.2.840.114 [id number] Univers 00:00:00 00:00:00 Ya PACHECO 350.1.13.10 i ty of [place] [phone] Pr dical NAL 085 [facility] 2022-02-12 2022-02-12 Orders Doctor REYES 1.2.840.114 [id number] Univers 00:00:00 00:00:00 Only Unassigned, TOYA 350.1.13.10 ity of [place] [facility] 4.2.7.2.686 [place] [phone] [address] 2022-02-12 2022-02-12 [facility] 1.2.840.114 [id number] Univers 00:00:00 00:00:00 Liborio PACHECO 350.1.13.10 i ty of [place].2.[place] [id number] [facility] 044 [facility] 2022-02-07 2022-02-07 Telephone [facility] 1.2.840.114 [id number] Univers 00:00:00 00:00:00 Liborio PACHECO 350.1.13.10 i ty of [place].2.[place] [phone] [facility] 044 [facility] 2022-02-05 2022-02-05 Orders Doctor REYES 1.2.840.114 [id number] Univers 00:00:00 00:00:00 Only Unassigned, TOYA 350.1.13.10 ity of [place] [facility] 4.2.7.2.686 [place] [phone] [address] 2022-01-24 2022-01-24 Reggie [facility] 1.2.840.114 [id number] Univers 00:00:00 00:00:00 Ya PACHECO 350.1.13.10 i ty [place].2.[place] 239.9216931 Pr dicmd NAL 085 [facility] 2022-01-24 2022-01-24 [facility] 1.2.840.114 [id number] Univers 00:00:00 00:00:00 Liborio PACHECO 350.1.13.10 i ty of [place].2.[place] 336.7304704 Me dical NAL 044 [facility] 2022-01-18 2022-01-18 [facility] 1.2.840.114 [id number] Univers 00:00:00 00:00:00 Liobrio PACHECO 350.1.13.10 i ty [facility] 4.2.7.2.[place] [id number] Pr dical NAL [address] [place] [address] 2022-01-12 2022-01-12 [facility] 1.2.840.114 [id number] [id number] Univers 00:00:00 00:00:00 Liborio PACHECO 350.1.13.10 i ty of [place].2.[place] [id number] Pr dical NAL [address] [place] [address] 2022-01-12 2022-01-12 [facility] 1.2.840.114 [id number] [id number] Univers 00:00:00 00:00:00 Liborio PACHECO 350.1.13.10 i ty of [place]7.2.[place] 628.7975414 Pr dical NAL [address] [place] [address] 2022-01-09 2022-01-09 [facility] 1.2.840.114 [id number] [id number] Univers 00:00:00 00:00:00 Liborio PACHECO 350.1.13.10 i ty [facility] 4.2.7.2.[place] 364.5432308 Pr dical NAL [address] [place] [address] 2022-01-08 2022-01-08 Outpatient R YA QUINTANA [facility] 10 [id number] Univers 10:00:00 10:23:18 YA QUINTANA i ty of [facility] 2022-01-08 2022-01-08 Office Bairon [facility] 1.2.840.114 [id number] Univers 10:00:00 10:23:18 Visit Ya PACHECO 350.1.13.10 i ty [facility] 4.2.7.[place] 164.2288366 Pr dicmd NAL 085 [facility] 2022-01-02 2022-01-02 Refill [facility] 1.2.840.114 [id number] Univers 00:00:00 00:00:00 Liborio PACHECO 350.1.13.10 i ty of [place].2.[place] [phone] Pr dical NAL 044 [facility] 2022-01-02 2022-01-02 Refill [facility] 1.2.840.114 [id number] Univers 00:00:00 00:00:00 Ya PACHECO 350.1.13.10 i ty of [place] [id number] Pr dical NAL 085 [facility] 2021-12-29 2021-12-29 Telephone [facility] 1.2.858.774 [id number] Univers 00:00:00 00:00:00 Ya PACHECO 350.1.13.10 i ty of [place] 263.4076166 Pr dical NAL 085 [facility] 2021-12-28 2021-12-28 Telephone [facility] 1.2.840.114 [id number] Univers 00:00:00 00:00:00 Liborio PACHECO 350.1.13.10 i ty [place].2.[place] 320.1288398 Pr dical NAL 044 [facility] 2021-12-22 2021-12-22 Orders Doctor REYES 1.2.840.114 [id number] Univers 00:00:00 00:00:00 Only Unassigned, TOYA 350.1.13.10 ity of [place] [facility] 4.2.7.2.686 Adelso as [phone] [address] 2021-12-19 2021-12-19 Letter [facility] 1.2.840.114 [id number] Univers 00:00:00 00:00:00 (Out) Summer PACHECO 350.1.13.10 i [facility] [place] [phone] Pr dical NAL 296 [facility] 2021-12-06 2021-12-06 Outpatient R ELIDIADENVERMINDY [facility] [id number] Univers 13:20:00 14:20:30 LIBORIO rosi [facility] 2021-12-06 2021-12-06 Office [facility] 1.2.840.114 [id number] Univers 13:20:00 14:20:30 Visit Liborio PACHECO 350.1.13.10 i [place] [phone] Pr dical NAL 044 [facility] 2021-12-05 2021-12-05 [facility] [id number] Univers 10:00:00 16:37:56 LEXI aranda [facility] 2021-12-05 2021-12-05 Ancillary Therapist, [facility] Pulmonary [facility] 1.2.840.114 [id number] Univers 10:00:00 16:37:56 Visit Lexi Vaca 350.1.13. 10 [place] [phone] Pr dical NAL 296 [facility] 2021-12-05 2021-12-05 Orders Doctor REYES 1.2.840.114 [id number] Univers 00:00:00 00:00:00 Only Unassigned, TOYA 350.1.13.10 ity of [place] [facility] 4.2.7.2.686 Adelso as [phone] [address] 2021-11-30 2021-11-30 Outpatient R MIKEY [facility] [id number] Univers 09:00:00 14:00:05 LEXI aranda [facility] 2021-11-30 2021-11-30 Ancillary Therapist, [facility] Pulmonary [facility] 1.2.840.114 [id number] Univers 09:00:00 14:00:05 Visit Lexi [place]aca 350.1.13. 10 [place] [phone] Pr dical NAL 296 [facility] 2021-11-302021-11-30 Patient Doctor [facility] 1.2.840.114 [id number] Univers 00:00:00 00:00:00 Secure Msg UnassignedJUNIOR 350.1.13.10 ity of [place]IDANA[place]SE [place] [phone] Pr dical NAL 059 [facility] 2021-11-28 2021-11-28 Outpatient R KATEY [facility] [id number] Univers 14:00:00 14:18:18 ROLA aranda [facility] 2021-11-28 2021-11-28 Office Katey [facility] 1.2.840.114 [id number] Univers 14:00:00 14:18:18 Visit Rola ROOT 350.1.13.10 [place] [phone] [facility] AND [address] [facility] 2021-11-28 2021-11-28 Ancillary Therapist, [facility] Pulmonary [facility] 1.2.840.114 [id number] Univers 10:00:00 11:30:45 Visit Lexi [place]aca 350.1.13. 10 it[place] [phone] Pr dical NAL 296 [facility] 2021-11-28 2021-11-28 Frame Feeder 2, Adc Lab [facility] 1.2.840.114 [id number] Univers 11:00:00 11:15:00 Visit Maral Garsia 350.1.13.10 ity of [place] [phone] Pr dical NAL 353 [facility] 2021-11-28 2021-11-28 Outpatient R MIKEY [facility] [id number] Univers 10:00:00 10:00:00 LEXI aranda [facility] 2021-11-24 2021-11-24 Ancillary Therapist, [facility] Pulmonary [facility] 1.2.840.114 [id number] Univers 11:00:00 13:01:57 Visit Lexi Vaca 350.1.13. 10 [facility] [place] [phone] Pr dical NAL 296 [facility] 2021-11-24 2021-11-24 Orders Doctor REYES 1.2.840.114 [id number] Univers 00:00:00 00:00:00 Only Unassigned, TOYA 350.1.13.10 ity of [place] [facility] 4.2.7.2.686 Adelso as [phone] [address] 2021-11-22 2021-11-22 Refill [facility] 1.2.840.114 [id number] Univers 00:00:00 00:00:00 Ya PACHECO 350.1.13.10 i ty [facility] [place] [phone] Pr dical NAL 085 [facility] 2021-11-21 2021-11-21 Ancillary Therapist, Adc Pulmonary [facility] 1.2.840.114 [id number] Univers 10:00:00 11:38:20 Visit Lexi Vaca 350.1.13. 10 [facility] [place] [phone] Pr dical NAL 296 [facility] 2021-11-19 2021-11-19 Refill [facility] 1.2.840.114 [id number] Univers 00:00:00 00:00:00 Liborio PACHECO 350.1.13.10 i ty [facility] [place] [id number] Pr dical NAL 044 [facility] 2021-11-16 2021-11-16 Outpatient R MIKEY [facility] [id number] Univers 10:00:00 11:59:47 LEXI aranda of [facility] 2021-11-16 2021-11-16 Ancillary Therapist, Adc Pulmonary [facility] 1.2.840.114 [id number] Univers 10:00:00 11:59:47 Visit Lexi Vaca 350.1.13. 10 [facility] [place] [phone] Pr dical NAL 296 [facility] 2021-11-16 2021-11-16 Orders Doctor REYES 1.2.840.114 [id number] Univers 00:00:00 00:00:00 Only Unassigned, TOYA 350.1.13.10 ity of [place] [facility] 4.2.7.2.686 [place] as [phone] [address] 2021-11-14 2021-11-14 Ancillary Therapist, [facility] Pulmonary [facility] 1.2.840.114 [id number] Univers 10:00:00 11:49:36 Visit Lexi Vaca 350.1.13. 10 ity [facility] [place] [phone] Pr dical NAL 296 [facility] 2021-11-14 2021-11-14 Outpatient Ab VACA [facility] [id number] Univers 10:00:00 10:00:00 LEXI aranda [facility] 2021-11-12 2021-11-12 Refindy [facility] 1.2.840.114 [id number] Univers 00:00:00 00:00:00 Liborio PACHECO 350.1.13.10 i ty [facility] [place] [phone] Pr dical NAL 044 [facility] 2021-11-10 2021-11-10 Outpatient Ab VACA [facility] [id number] Univers 10:00:00 11:11:06 LEXI aranda [facility] 2021-11-10 2021-11-10 Ancillary Therapist, [facility] Pulmonary [facility] 1.2.840.114 [id number] Univers 10:00:00 11:11:06 Visit Lexi Vaca 350.1.13. 10 ity [facility] [place] [phone] Pr dical NAL 296 [facility] 2021-11-07 2021-11-07 Outpatient Ab VACA [facility] [id number] Univers 10:00:00 11:55:14 LEXI aranda [facility] 2021-11-07 2021-11-07 Ancillary Therapist, [facility] Pulmonary [facility] 1.2.840.114 [id number] Univers 10:00:00 11:55:14 Visit Lexi Vaca 350.1.13. 10 it[facility] [place] [phone] Pr dical [address] 2021-11-07 2021-11-07 Orders Doctor REYES 1.2.840.114 [id number] Univers 00:00:00 00:00:00 Only Unassigned, TOYA 350.1.13.10 ity of [place] [facility] 4.2.7.2.686 [place] as [phone] [address] 2021-11-03 2021-11-03 Telephone [facility] 1.2.523.631 [id number] Univers 00:00:00 00:00:00 Summer PACHECO 350.1.13.10 i ty of [place] [phone] [address] 2021-11-02 2021-11-02 Outpatient Ab VACA [facility] [id number] Univers 09:00:00 11:11:30 LEXI aranda [facility] 2021-11-02 2021-11-02 Ancillary Therapist, [facility] Pulmonary [facility] 1.2.840.114 [id number] Univers 09:00:00 11:11:30 Visit Lexi Vaca 350.1.13. 10 ity of [place] [phone] Pr dic[address] 2021-11-02 2021-11-02 [facility] [id number] Univers 11:00:00 11:00:00 HASMUKH aranda [facility] 2021-11-02 2021-11-02 Orders Doctor PULLIAM 1.2.840.114 [id number] Univers 00:00:00 00:00:00 Only Unassigned, TOYA 350.1.13.10 ity of [place] [facility] 4.2.7.2.686 Adelso as [phone] [facility] [address] 2021-11-01 2021-11-01 [facility] 1.2.840.114 [id number] Univers 08:52:21 23:59:00 Encounter Dariana [place] 350.1.13.10 ity of [place] [phone] [facility] [address] 2021-11-01 2021-11-01 [facility] 1.2.840.114 [id number] Univers 08:52:08 23:59:00 Encounter Qiangmargarita [place] 350.1.13.10 ity of [place] [phone] [facility] [address] 2021-11-01 2021-11-01 [facility] 1.2.840.114 [id number] Univers 08:51:53 08:51:53 Encounter Dariana [place] 350.1.13.10 ity of [place]2.7.2.[place] [phone] [facility] [address] 2021-11-01 2021-11-01 Outpatient [facility] [id number] Univers 08:51:26 08:51:26 DARIANA tabory o [facility]ly [facility] 2021-11-01 2021-11-01 Outpatient [facility] [id number] Univers 08:51:26 08:51:26 DARIANA ity o f [facility] 2021-11-01 2021-11-01 [facility] 1.2.840.114 [id number] Univers 08:51:26 08:51:26 Encounter Dariana ARANDATON 350.1.13.10 [facility] 4.2.7.[facility].686 [facility] [place] [phone] [facility] [address] [place] 2021-11-01 2021-11-01 Outpatient [facility] [id number] Univers 00:00:00 00:00:00 DARIANA ity o f [facility] 2021-11-01 2021-11-01 Patient [facility] 1.2.840.114 [id number] Univers 00:00:00 00:00:00 Secure Msg Dariana JUNIOR 350.1.13.10 ity of [place] [phone] Pr dical NAL 059 [facility] 2021-10-31 2021-10-31 Outpatient R LOWELL, [facility] [id number] Univers 11:00:00 11:52:17 HASMUKH ity [facility] 2021-10-31 2021-10-31 Ancillary Halina Leavitt [facility] 1.2.84 0.114 [id number] Univers 11:00:00 11:52:17 Visit Hasmukh Etienne 350.1.13.10 ity of [place] [id number] [facility] NAL 179 [facility] 2021-10-26 2021-10-26 Frame Feeder 2, Adc Lab [facility] 1.2.840.114 [id number] Univers 14:00:00 14:15:00 Visit Unknown, Attending JUNIOR 350.1.13.1 0 ity of [place] [phone] Pr dical NAL 353 [facility] 2021-10-26 2021-10-26 Outpatient R UNKNOWN, [facility] [id number] Univers 14:00:00 14:00:00 ATTENDING ity [facility] 2021-10-26 2021-10-26 Ancillary Florence Chris [facility] 1.2.840 .114 [id number] Univers 13:00:00 13:59:53 Visit Hasmukh Etienne 350.1.13.10 ity of [place] [phone] Pr dical NAL 179 [facility] 2021-10-26 2021-10-26 Telephone Kenneth [facility] 1.2.054.271 [id number] Univers 00:00:00 00:00:00 Summer PACHECO 350.1.13.10 i ty of [place] [phone] Me dical NAL 296 [facility] 2021-10-26 2021-10-26 Orders Doctor REYES 1.2.840.114 [id number] Univers 00:00:00 00:00:00 Only Unassigned, TOYA 350.1.13.10 ity of [place] [facility] 4.2.7.2.686 [place] [phone] [address] 2021-10-24 2021-10-24 Outpatient R TESS [facility] [id number] Univers 00:00:00 00:00:00 DARIANA aranda o f [facility] 2021-10-24 2021-10-24 [facility] 1.2.840.114 [id number] Univers 00:00:00 00:00:00 Liborio PACHECO 350.1.13.10 i ty of [place] [phone] Pr dical NAL 044 [facility] 2021-10-24 2021-10-24 [facility] 1.2.840.114 [id number] Univers 00:00:00 00:00:00 Liborio PACHECO 350.1.13.10 i ty of [place] [phone] Pr dical NAL 044 [facility] 2021-10-19 2021-10-19 Ancillary Halina Leavitt [facility] 1.2.84 0.114 [id number] Univers 11:00:00 13:23:38 Visit Hasmukh Etienne 350.1.13.10 ity of [place] [phone] Pr dical NAL 179 [facility] 2021-10-19 2021-10-19 Outpatient R LOWELL [facility] [id number] Univers 11:00:00 11:00:00 HASMUKH aranda of [facility] 2021-10-11 2021-10-11 Outpatient R EVELINE LUCIO [facility] [id number] Univers 13:30:00 14:41:51 EVELINE LUCIO ity [facility] 2021-10-11 2021-10-11 Office Gayle [facility] 1.2.840.114 [id number] Univers 13:30:00 14:41:51 Visit Eveline PAC[place]CO 350.1.13.10 [facility] 4.2.7.2.[place] [phone] Pr dical NAL 044 [facility] 2021-10-11 2021-10-11 Outpatient R EVELINE LUCIO [facility] [id number] Univers 13:30:00 13:30:00 EVELINE LUCIO ity [facility] 2021-10-06 2021-10-06 Telephone Tess [facility] 1.2.108.571 [id number] Univers 00:00:00 00:00:00 Dariana PACHECO 350.1.13.10 it[place] of [place] [phone] Pr dical NAL 059 [facility] 2021-10-06 2021-10-06 Transition MELANIE Ty 1.2.840.114 [id number] Univers 00:00:00 00:00:00 of Kortney CARDY 350.1.13.10 it y of [place]2.[place].2.[place] [phone] [facility] [address] 2021-10-04 2021-10-05 Outpatient X KB [facility] TATE [id number] Univers 04:33:00 15:10:00 ADNAN ity [facility] 2021-10-04 2021-10-05 Emergency Xavier Tejada [facility] 1.2.840. 114 [id number] Univers 04:33:00 15:10:00 Marisela Akhtar 350.1.13.10 it[place] of [place] [id number] [facility] [address] 2021-10-05 2021-10-05 Outpatient R [facility] [id number] Univers 13:00:00 13:00:00 ity of [facility] 2021-10-04 2021-10-04 Nurse REYES Lagunas 1.2.840.114 [id number] Univers 00:00:00 00:00:00 Triage Marylin PITTMAN 350.1.13.10 it y of [facility] 4.2.7.2.686 [place] as [phone] [facility] [address] [place] 2021-10-04 2021-10-04 Letter Testing, [facility] 1.2.840.114 [id number] Univers 00:00:00 00:00:00 (Out) [facility] Y [facility] 350.1.13.10 i ty of Pulmonary CLINICS [place].2.[place] [phone] Med ica [address] [place] 2021-10-04 2021-10-04 Patient Doctor [facility] 1.2.651.293 [id number] Univers 00:00:00 00:00:00 Secure Msg Unassigned, [facility] 350.1.13.10 ity of [place] [facility] 4.2.7.2.[place] [phone] [place] [id number] [place] 2021-10-03 2021-10-03 Outpatient Ab ETIENNE [facility] [id number] Univers 13:00:00 14:20:09 HASMUKH taborFormerly [facility] 2021-10-03 2021-10-03 Ancillary Chuck Chris [facility] 1.2.840. 114 [id number] Univers 13:00:00 14:20:09 Visit Hasmukh Etienne 350.1.13.10 ity [facility] [place]2.[place] [phone] [facility] 179 [facility] 2021-10-03 2021-10-03 Outpatient Ab ETIENNE [facility] [id number] Univers 13:00:00 14:20:09 HASMUKH aranda [facility] 2021-10-01 2021-10-01 Reggie Lucio [facility] 1.2.840.114 [id number] Univers 00:00:00 00:00:00 Eveline PACHE[place] 350.1.13.10 ity [facility] [place]2.[place] [phone] Pr dical NAL 044 [facility] 2021-10-01 2021-10-01 Refill Gayle [facility] 1.2.840.114 [id number] Univers 00:00:00 00:00:00 Eveline PACHECO 350.1.13.10 ity of [place] [phone] Pr dical NAL 044 [facility] 2021-09-30 2021-09-30 Patient Doctor [facility] 1.2.840.114 [id number] Univers 00:00:00 00:00:00 Secure Msg Unassigned, MULTISPEC 350.1.13.10 ity of [place]2.7.2.[place] C[place] [phone] [address] [facility] 2021-09-29 2021-09-29 Outpatient R YA QUINTANA [facility] [id number] Univers 11:00:00 11:42:05 YA QUINTANA i ty of [facility] 2021-09-29 2021-09-29 Office Bairon [facility] 1.2.840.114 [id number] Univers 11:00:00 11:42:05 Visit Ya PACHECO 350.1.13.10 i ty of [place] [id number] Pr dical NAL 085 [facility] 2021-09-29 2021-09-29 Outpatient R YA QUINTANA [facility] 10 [id number] Univers 11:00:00 11:00:00 YA QUINTANA i ty of [facility] 2021-09-29 2021-09-29 Telephone Bairon [facility] 1.2.213.366 [id number] Univers 00:00:00 00:00:00 Ya PACHECO 350.1.13.10 i ty of [place] [id number] Pr dical NAL 085 [facility] 2021-09-28 2021-09-28 Ancillary Nury Cortez [facility] 1.2. 840.114 [id number] Univers 16:00:00 16:45:00 Visit Hasmukh Etienne 350.1.13.10 ity [facility] 4.2.7.2.[place] [phone] Pr dical NAL [address] [facility] 2021-09-28 2021-09-28 Outpatient R LOWELL [facility] [id number] Univers 16:00:00 16:00:00 HASMUKH ity [facility] 2021-09-27 2021-09-27 Outpatient R MILDRED [facility] [id number] Univers 15:00:00 15:50:24 KAVON ity [facility] 2021-09-27 2021-09-27 Outpatient R MILDRED [facility] [id number] Univers 15:00:00 15:50:24 KAVON ity [facility] 2021-09-27 2021-09-27 Office [facility] 1.2.840.114 [id number] Univers 15:00:00 15:50:24 Visit [facility] 350.1.13.10 it y [facility] 4.2.7.2.686 Adelso as NENO?BLEA [phone] Pr dicjennifer RICH [address] [place] [facility] 2021-09-26 2021-09-26 Ancillary Nury Cortez [facility] 1.2. 840.114 [id number] Univers 14:30:00 15:15:00 Visit Hasmukh Etienne 350.1.13.10 ity of [place] [phone] Pr dical NAL 179 [facility] 2021-09-23 2021-09-23 Refindy Quintana [facility] 1.2.840.114 [id number] Univers 00:00:00 00:00:00 Ya NEWELLPEC 350.1.13.10 ity of [place]2.7.2.[place] [phone] Miguel Reid [address] [place] [facility] 2021-09-23 2021-09-23 Refill Isabel [facility] 1.2.840.114 [id number] Univers 00:00:00 00:00:00 Liborio PACHECO 350.1.13.10 i ty [facility] 4.2.7.2.[place] [phone] Pr dical NAL 044 [facility] 2021-09-22 2021-09-22 Refill [facility] 1.2.840.114 [id number] Univers 00:00:00 00:00:00 Kavon [place] 350.1.13.10 i ty [facility] 4.2.7.2.[place] [phone] Pr dical NAL 044 [facility] 2021-09-21 2021-09-21 [facility] [id number] Univers 16:00:00 16:47:06 HASMUKH [facility] 2021-09-21 2021-09-21 Ancillary Nury Cortez [facility] 1.2. 840.114 [id number] Univers 16:00:00 16:47:06 Visit Hasmukh Etienne 350.1.13.10 ity of [place] [phone] [facility] 179 [facility] 2021-09-20 2021-09-20 [facility] [id number] Univers 13:30:00 14:59:35 KAVON [facility] 2021-09-20 2021-09-20 [facility] [id number] Univers 13:30:00 14:59:35 [facility] 2021-09-20 2021-09-20 Office [facility] 1.2.840.114 [id number] Univers 13:30:00 14:59:35 Visit Kavon PACHECO 350.1.13.10 i ty of [place] [phone] Pr dical NAL 044 [facility] 2021-09-19 2021-09-19 Ancillary Nury Cortez [facility] 1.2. 840.114 [id number] Univers 16:00:00 16:45:00 Visit Hasmukh Etienne 350.1.13.10 ity of [place] 4[place] [phone] Pr dical NAL 179 [facility] 2021-09-14 2021-09-14 Ancillary Chuck Chris [place] 1.2.840. 114 [id number] Univers 13:45:00 14:44:46 Visit Lowell Hasmukh PAC[place] 350.1.13.10 ity of [place] 4[place] [id number] Pr dical NAL 179 [facility] 2021-09-12 2021-09-12 Ancillary Florence Chris Jo-Ann [facility] 1.2.840 .114 [id number] Univers 11:15:00 13:55:27 Visit EtienneHasmukh shirley 350.1.13.10 ity of [place] 4[place].2.[place] [phone] Pr dical NAL 179 [facility] 2021-09-07 2021-09-07 Ancillary Chuck Chris Armin [facility] 1.2.840. 114 [id number] Univers 13:45:00 14:30:00 Visit Hasmukh Etienne 350.1.13.10 ity of [place] 4[place].2.[place] [phone] Pr dical NAL 179 [facility] 2021-09-06 2021-09-06 Telephone Isabel [facility] 1.2.840.114 [id number] Univers 00:00:00 00:00:00 Liborio PACHECO 350.1.13.10 i ty of [place] 4[place] [phone] Pr dical NAL 044 [facility] 2021-09-05 2021-09-05 Frame Feeder 2, [facility] [place] 1.2.840.114 [id number] Univers 16:15:00 16:30:00 Visit Liborio Hall 350.1.13.10 ity of [place].2.[place] [phone] Pr dical NAL 353 [facility] 2021-09-05 2021-09-05 Outpatient R ISABEL [facility] [id number] Univers 15:20:00 16:16:29 LIBORIO aranda [facility] 2021-09-05 2021-09-05 Office [facility] 1.2.840.114 [id number] Univers 15:20:00 16:16:29 Visit Liborio PACHECO 350.1.13.10 i ty [facility] 4.2.7.2.[place] [phone] Pr dical NAL 044 [facility] 2021-09-05 2021-09-05 [facility] [id number] Univers 11:00:00 11:55:12 HASMUKHJOSE JUAN aranda [facility] 2021-09-05 2021-09-05 Ancillary Chuck Chris [facility] 1.2.840. 114 [id number] Univers 11:00:00 11:45:00 Visit Hasmukh Etienne 350.1.13.10 ity of [place] [phone] Me dical NAL 179 [facility] 2021-09-05 2021-09-05 Outpatient R ETIENNE, [facility] [id number] Univers 11:00:00 11:00:00 HASMUKHJOSE JUAN aranda [facility] 2021-08-24 2021-08-24 Ancillary Nury Cortez [facility] 1.2. 840.114 [id number] Univers 13:45:00 14:30:00 Visit Hasmukh Etienne 350.1.13.10 ity of [place] [phone] Me dical NAL 179 [facility] 2021-08-22 2021-08-22 Ancillary Chuck Chris [facility] .2.840. 114 [id number] Univers 14:30:00 15:15:00 Visit Hasmukh Etienne 350.1.13.10 ity [facility] 4.2.[place] [id number] Me dical NAL 179 [facility] 2021-08-22 2021-08-22 Outpatient R LOWELL [facility] [id number] Univers 14:30:00 14:30:00 HASMUKH itrohan of [facility] 2021-08-17 2021-08-17 Ancillary Chuck Chris [facility] 1.2.840. 114 [id number] Univers 09:30:00 10:38:41 Visit Hasmukh Etienne JUNIOR 350.1.13.10 ity [place] [phone] Pr dical NAL 179 [facility] 2021-08-10 2021-08-10 Ancillary Chuck Chris [facility] 1.2.840. 114 [id number] Univers 09:30:00 10:15:00 Visit Etienne Hasmukh PACHECO 350.1.13.10 ity of [place] [phone] Pr dical NAL 179 [facility] 2021-08-08 2021-08-08 Frame Feeder Alejandro, Simi Lab Main [facility] 1.2.8 40.114 [id number] Univers 14:15:00 14:30:00 Visit Maral Garsia 350.1.13.10 ity of [place] [phone] Pr dicmd NAL 353 [facility] 2021-08-08 2021-08-08 Outpatient R SAYRA [facility] [id number] Univers 14:15:00 14:15:00 FELIPAITHA ity of [facility] 2021-08-08 2021-08-08 Ancillary Chuck Chris [facility] 1.2.840. 114 [id number] Univers 13:00:00 13:45:00 Visit Hasmukh Etienne 350.1.13.10 it[place] of [place] [phone] [facility] [address] [facility] 2021-08-08 2021-08-08 Orders Doctor PULLIAM 1.2.840.114 [id number] Univers 00:00:00 00:00:00 Only Unassigned, TOYA 350.1.13.10 ity of [facility] 4.2.7.2.686 Adel[place] as [phone] [address] 2021-08-06 2021-08-06 [facility] 1.2.840.114 [id number] Univers 00:00:00 00:00:00 Liborio PACHECO 350.1.13.10 i [place] [phone] Pr dical NAL 0[address] [facility] 2021-08-03 2021-08-03 Outpatient R LOWELL [facility] [id number] Univers 11:00:00 11:47:32 HASMUKH aranda [facility] 2021-08-03 2021-08-03 Outpatient R LOWELL [facility] [id number] Univers 11:00:00 11:47:32 HASMUKHJOSE JUAN aranda [facility] 2021-08-03 2021-08-03 Ancillary Chuck Chris [facility] 1.2.840. 114 [id number] Univers 11:00:00 11:45:00 Visit Hasmukh Etienne 350.1.13.10 ity [facility] [place] [phone] Pr dical NAL [address] [facility] 2021-08-03 2021-08-03 Outpatient R LOWELL [facility] [id number] Univers 11:00:00 11:00:00 HASMUKH itrohan [facility] 2021-08-01 2021-08-01 Ancillary Halina Leavitt [facility] 1.2.84 0.114 [id number] Univers 11:00:00 11:45:00 Visit Hasmukh Etienne 350.1.13.10 [place] [phone] Pr dical NAL [address] [facility] 2021-08-01 2021-08-01 [facility] [id number] Univers 11:00:00 11:00:00 HASMUKH itrohan [facility] 2021-08-01 2021-08-01 [facility] [place] [facility] 1.2.840.114 [id number] Univers 00:00:00 00:00:00 Liborio PACHECO 350.1.13.10 i ty [facility] [place] [id number] Pr dical NAL 044 [facility] 2021-07-27 2021-07-27 Ancillary Chuck Chris [facility] 1.2.840. 114 [id number] Univers 11:00:00 11:45:00 Visit Hasmukh Etienne 350.1.13.10 ity [facility] [place] [phone] Pr dical NAL 179 [facility] 2021-07-25 2021-07-25 Ancillary Chuck Chris [facility] 1.2.840. 114 [id number] Univers 11:00:00 12:59:36 Visit Hasmukh Etienne 350.1.13.10 ity of [place] [phone] Pr dical NAL 179 [facility] 2021-07-24 2021-07-24 Outpatient R JULIANE [facility] [id number] Univers 13:20:00 13:20:00 GAYATHRI itFormerly [facility] 2021-07-17 2021-07-17 Ancillary Halina Leavitt [facility] 1.2.84 0.114 [id number] Univers 15:15:00 17:36:17 Visit Hasmukh Etienne 350.1.13.10 ity of [place] [phone] Pr dical NAL 179 [facility] 2021-07-17 2021-07-17 Outpatient R LOWELL [facility] [id number] Univers 15:15:00 17:36:17 HASMUKH rohan [facility] 2021-07-17 2021-07-17 Outpatient R LOWELL [facility] [id number] Univers 15:15:00 17:36:17 HASMUKH rohan [facility] 2021-07-17 2021-07-17 Outpatient R LOWELL [facility] [id number] Univers 15:15:00 15:15:00 HASMUKH ity of [facility] 2021-07-14 2021-07-14 Orders Doctor REYES 1.2.840.114 [id number] Univers 00:00:00 00:00:00 Only Unassigned, TOYA 350.1.13.10 ity of [place] [facility] 4.2.7.2.686 Adelso as [phone] [facility] [address] 2021-07-11 2021-07-11 [facility] 1.2.840.114 [id number] Univers 00:00:00 00:00:00 Liborio PACHECO 350.1.13.10 i ty of [place] [phone] [address] 2021-07-07 2021-07-07 Patient Doctor [facility] 1.2.840.114 [id number] Univers 00:00:00 00:00:00 Secure Msg Unassigned, MULTISPEC 350.1.13.10 ity of [place] [facility] [place].2.[place] C[place] [phone] [facility] [place] [address] [place] [facility] 2021-07-05 2021-07-05 Reg[facility] 1.2.840.114 [id number] Univers 00:00:00 00:00:00 Liborio PACHECO 350.1.13.10 i ty of [place] [id number] Pr dic[address] 2021-07-05 2021-07-05 Reg[facility] 1.2.840.114 [id number] Univers 00:00:00 00:00:00 Liborio PACHECO 350.1.13.10 i ty of [place] [id number] [address] 2021-07-05 2021-07-05 El [facility] 1.2.840.114 [id number] Univers 00:00:00 00:00:00 [facility] 350.1.13.10 ity of [place] 4.2.7.2.686 Adelso as NENO?BLEA [phone] Pr darshana RICH 092 [facility] 2021-07-04 2021-07-04 [facility] 1.2.840.114 [id number] Univers 00:00:00 00:00:00 Liborio PACHECO 350.1.13.10 i ty [facility] [place] [phone] Pr darshana HERNANDEZ 044 [facility] 2021-07-03 2021-07-03 Frame Feeder Alejandro, Adc Lab Main [facility] 1.2.8 40.114 [id number] Univers 14:30:00 14:45:00 Visit Maral Garsia 350.1.13.10 ity of [place] 4.[place].2.[place] [phone] Pr [facility] 353 [facility] 2021-07-03 2021-07-03 Outpatient R SAYRA [facility] [id number] [facility] 14:30:00 14:30:00 MARAL ity of [facility] 2021-07-03 2021-07-03 Orders Doctor REYES 1.2.840.114 [id number] Univers 00:00:00 00:00:00 Only Unassigned, TOYA 350.1.13.10 ity of [place] [facility] 4.2.7.2.686 Adelso as [phone] [address] 2021-06-28 2021-06-28 Telephone [facility] 1.2.840.114 [id number] Univers 00:00:00 00:00:00 Liborio PACHECO 350.1.13.10 i ty of [place] [phone] Pr [facility]arshana [facility] 044 [facility] 2021-06-28 2021-06-28 Telephone [facility] 1.2.840.114 [id number] Univers 00:00:00 00:00:00 Liborio PACHECO 350.1.13.10 i ty of [place] [phone] Pr dical NAL [address] [facility] 2021-06-27 2021-06-27 Outpatient R MICHAEL SINCLAIR [facility] [id number] Univers 16:00:00 17:03:45 MICHAEL SINCLAIR [facility] 2021-06-27 2021-06-27 Office [facility] 1.2.840.114 [id number] Univers 16:00:00 17:03:45 Visit [facility] 350.1.13.10 ity of [place] 4.2.7.2.686 Adelso as NENO?BLEA [phone] Pr fransiscojennifer RICH 092 [facility] OFFICE BUILDING 2021-06-27 2021-06-27 Outpatient R MICHAEL SINCLAIR [facility] [id number] Univers 16:00:00 16:00:00 MICHAEL SINCLAIR [facility] 2021-06-26 2021-06-26 [facility] 1.2.840.114 [id number] Univers 00:00:00 00:00:00 [facility] 350.1.13.10 ity of [place] [phone] Pr dical NAL [address] [place] [address] 2021-06-26 2021-06-26 [facility] 1.2.840.114 [id number] Univers 00:00:00 00:00:00 [facility] [place] 350.1.13.10 [place]y of [place] [phone] Pr dical NAL [address] [place] [address] 2021-06-22 2021-06-22 [facility] [id number] Univers 10:06:41 23:59:[address] [facility] 2021-06-22 2021-06-22 [facility] 1.2.840.114 [id number] Univers 10:06:41 23:59:00 MARYJANE Vale 350.1.13.10 ity of [facility] [place].2.7.2.[place] C[place] AT [phone] Pr darshana SEGOVIA [address] [facility] 2021-06-22 2021-06-22 Out[facility] [id number] Univers 10:00:00 10:38:05 GAYATHRI ity [facility] 2021-06-22 2021-06-22 Office [facility] 1.2.840.114 [id number] Univers 10:00:00 10:38:05 Visit Gayathri WESLEY 350.1.13.10 ity of [place]2.7.2.[place] C[place] AT [phone] Pr darshana SEGOVIA 198 [facility] 2021-06-22 2021-06-22 Out[facility] [id number] Univers 10:00:00 10:00:00 GAYATHRI ity [facility] 2021-06-22 2021-06-22 Outpatient R [facility] [id number] Univers 10:00:00 10:00:00 GAYATHRI ity [facility] 2021-06-20 2021-06-20 Telephone [facility]EAST[facility] 1.2.840.114 [id number] Univers 00:00:00 00:00:00 Liborio PACHECO 350.1.13.10 i [facility] 4.[place] [phone] Pr [facility]arshana [facility] 231 [facility] 2021-06-19 2021-06-19 Outpatient R EVELINE LUCIO [facility] [id number] Univers 14:00:00 15:06:35 EVELINE LUCIO ity [facility] 2021-06-19 2021-06-19 Outpatient R EVELINE LUCIO [facility] [id number] Univers 14:00:00 15:06:35 EVELINE LUCIO ity [facility] 2021-06-19 2021-06-19 Office [facility] 1.2.840.114 [id number] Univers 14:00:00 15:06:35 Visit Eveline PACHECO 350.1.13.10 ity [facility] 4.2.[place] [phone] Pr dical NAL 044 [facility] 2021-06-19 2021-06-19 Telephone [facility] 1.2.840.114 [id number] Univers 00:00:00 00:00:00 Liborio PACHECO 350.1.13.10 i ty [facility] 4.2.7.2.[place] [phone] Pr dical NAL [address] [place] [address] 2021-06-18 2021-06-18 [facility] 1.2.840.114 [id number] Univers 00:00:00 00:00:00 Liborio PACHECO 350.1.13.10 i ty [facility] 4.2.7.2.[place] [phone] Pr dicmd NAL [address] [place] [address] 2021-06-18 2021-06-18 [facility] Fl[facility] 1.2.840.114 [id number] Univers 00:00:00 00:00:00 Jaxon TREJO 350.1.13.10 i ty of [place].2.[place] [id number] [facility] [address] 2021-06-16 2021-06-16 Telephone [facility] 1.2.840.114 [id number] Univers 00:00:00 00:00:00 Liborio PACHECO 350.1.13.10 i ty [facility] 4[place]2.[place] [phone] Pr dical NAL [address] [place] [address] 2021-06-15 2021-06-15 [facility] 1.2.840.114 [id number] Univers 00:00:00 00:00:00 Ya ROOT 350.1.13.10 ity of [place].2.7.2.[place] CENTER [phone] [facility] AND PATEL [address] [facility] 2021-06-13 2021-06-13 Transition MELANIE Mejia 1.2.840.114 [id number] Univers 00:00:00 00:00:00 of Care Jared VICKERS 350.1.13.10 [place] of [place].2.[place] [phone] [facility] [address] 2021-06-09 2021-06-12 Inpatient U [facility] TATE [id number] Univers 17:51:00 12:45:00 HOWARD ity of [facility] 2021-06-09 2021-06-12 [facility] 1.2.840.114 [id number] Univers 17:51:00 12:45:00 Encounter Howard PACHECO 350.1.13.10 ity of [place]2.7.2.686 [place] [phone] [facility] [address] 2021-06-12 2021-06-12 Patient Doctor REYES 1.2.840.114 [id number] Univers 00:00:00 00:00:00 Secure Msg Unassigned, TOYA 350.1.13.10 ity of [place] [facility] 4.2.7.2.686 Adelso as [phone] [facility] [address] 2021-06-07 2021-06-07 Outpatient R [facility] [id number] [id number] Univers 14:50:10 23:59:00 LIBORIO aranda [facility] 2021-06-07 2021-06-07 [facility] 1.2.840.114 [id number] Univers 14:50:10 23:59:00 Encounter Liborio PACHECO 350.1.13.10 ity [facility] 4.2.7.2.[place] C[place] [phone] [facility] [address] 2021-06-07 2021-06-07 Frame Feeder Alejandro, Simi Lab Main [facility] 1.2.8 40.114 [id number] Univers 15:15:00 15:30:00 Visit Liborio Hall 350.1.13.10 ity of [place].2.[place] [phone] [facility] 353 [facility] 2021-06-06 2021-06-06 Office [facility] 1.2.840.114 [id number] Univers 11:00:00 12:16:06 Visit Liborio PACHECO 350.1.13.10 i ty [facility] [place]2.7.2.[place] [phone] [address] 2021-06-06 2021-06-06 [facility] [id number] [id number] Univers 11:00:00 12:16:06 LIBORIO [facility] 2021-06-06 2021-06-06 [facility] [id number] Univers 11:00:00 12:16:06 LIBORIO Formerly [facility] 2021-06-06 2021-06-06 [facility] [id number] Univers 11:00:00 12:16:06 LIBORIO Formerly [facility] 2021-06-06 2021-06-06 Out[facility] [id number] Univers 11:00:00 11:00:00 LIBORIO Formerly [facility] 2021-06-06 2021-06-06 [facility] [id number] Univers 11:00:00 11:00:00 LIBORIO Formerly [facility] 2021-06-06 2021-06-06 Out[facility] [id number] Univers 11:00:00 11:00:00 LIBORIO Formerly [facility] 2021-06-01 2021-06-01 Patient [facility] ..840.114 [id number] Univers 00:00:00 00:00:00 Secure Msg Liborio JUNIOR 350.1.13.10 ity [facility] [place].2.7.2.[place] [phone] [address] 2021-05-31 2021-05-31 Out[facility] [id number] [id number] Univers 15:00:00 16:12:40 LIBORIO [facility] 2021-05-31 2021-05-31 Office [facility] .2.840.114 [id number] Univers 15:00:00 16:12:40 Visit Liborio PACHECO 350.1.13.10 i ty of [place]2.7.2.[place] [phone] Pr dical NAL [address] [place] [address] 2021-05-31 2021-05-31 Outpatient R ISABEL [facility] [id number] [id number] Univers 15:00:00 15:00:00 LIBORIO ity of [facility] 2021-05-18 2021-05-18 [facility] 1.2.840.114 [id number] Univers 00:00:00 00:00:00 Liborio PACHECO 350.1.13.10 i ty of [place].7.2.[place] [id number] Pr dicmd NAL [address] [place] [address] 2021-05-18 2021-05-18 [facility] 1.2.840.114 [id number] Univers 00:00:00 00:00:00 Liborio PACHECO 350.1.13.10 i ty of [place]7.2.[place] [phone] Pr dical NAL [address] [place] [address] 2021-05-18 2021-05-18 [facility] 1.2.840.114 [id number] Univers 00:00:00 00:00:00 Liborio PACHECO 350.1.13.10 i ty of [place]7.2.[place] [phone] Pr dical NAL [address] [place] [address] 2021-05-18 2021-05-18 Reggie QuintanaEASTERN NEW [facility] 1.2.840.114 [id number] Univers 00:00:00 00:00:00 Shiwan MULTISPEC 350.1.13.10 ity of [facility] 4.2.7.2.[place] CENTER [id number] Miguel goodwin AND JORGE [address] [facility] 2021-05-18 2021-05-18 Reggie QuintanaEASTERN NEW [facility] 1.2.840.114 [id number] Univers 00:00:00 00:00:00 Shiwan MULTISPEC 350.1.13.10 ity of [place].2.[place] [phone] [facility] AND PATEL [address] [facility] 2021-05-17 2021-05-17 Frame Feeder Alejandro, Simi Lab Main [facility] 1.2.8 40.114 [id number] Univers 14:15:00 14:30:00 Visit Maral Garsia 350.1.13.10 ity of [facility] 4.2.7.2.686 [place] [facility] [phone] Pr dical NAL 353 [facility] 2021-05-17 2021-05-17 Outpatient R SAYRA [facility] [id number] Univers 14:15:00 14:15:00 MARAL tabory [facility] 2021-05-17 2021-05-17 Orders Doctor REYES 1.2.840.114 [id number] Univers 00:00:00 00:00:00 Only Unassigned, TOYA 350.1.13.10 ity of [place] [facility] 4.2.7.2.686 Adelso as [phone] [facility] [address] 2021-05-16 2021-05-16 Office Dan[facility]University [facility] 1.2.840.114 [id number] Univers 15:00:00 16:55:16 Visit Jaxon TREJO 350.1.13.10 i ty of [facility] 4.2.7.2.[place] [id number] [facility] [address] 2021-05-16 2021-05-16 Out[facility] [id number] Univers 15:00:00 16:55:16 JAXON aranda [facility] 2021-05-16 2021-05-16 Outpatient [facility] [id number] Univers 15:00:00 15:00:00 JAXON aranda [facility] 2021-05-12 2021-05-12 Transition MELANIE Ty 1.2.840.114 [id number] Univers 00:00:00 00:00:00 of Kortney VICKERS 350.1.13.10 it y [place]2.[place] [phone] [facility] [address] 2021-05-09 2021-05-11 Inpatient X AMOS [facility] TATE [id number] Univers 14:54:00 15:04:00 FREDO itrohan of [facility] 2021-05-09 2021-05-11 [facility] Domitila Melendrez [facility] 1.2.8 40.114 [id number] Univers 14:54:00 15:04:00 Encounter Fredo Trinidad 350.1.13.10 ity [facility] 4.2.7.2.[place] [id number] [facility] [address] 2021-05-05 2021-05-05 Patient [facility] 1.2.840.114 [id number] Univers 00:00:00 00:00:00 Secure Msg Liborio PACHECO 350.1.13.10 ity of [place].2.[place] [phone] Pr dical NAL 044 [facility] 2021-04-13 2021-04-13 Refill BaironEASTERN NEW [facility] 1.2.840.114 [id number] Univers 00:00:00 00:00:00 Ya PACHECO 350.1.13.10 i ty of [place] 4.2.7.2.[place] [phone] Pr dical NAL 085 [facility] 2021-04-04 2021-04-04 Refill IsabelEAST[facility] 1.2.840.114 [id number] [id number] Univers 00:00:00 00:00:00 Liborio PACHECO 350.1.13.10 i ty of [place] 4[place]2.7.2.[place] [id number] Pr dical NAL 044 [facility] 2021-03-31 2021-03-31 Refill DaniloEASTERN NEW [facility] 1.2.840.114 [id number] Univers 00:00:00 00:00:00 Jaxon TREJO 350.1.13.10 i ty of [place].2.[place] [phone] [facility] [address] 2021-03-21 2021-03-21 Refill TimEAST[facility] 1.2.840.114 [id number] Univers 00:00:00 00:00:00 Shakeel RAMÍREZ 350.1.13.10 it y of [facility] 4.2.7.2.686 Adelso as CLINIC - [phone] [address] 2021-03-14 2021-03-14 Refindy CarrascoEASTERN NEW [facility] 1.2.840.114 [id number] Univers 00:00:00 00:00:00 Jaxon NEIL 350.1.13.10 i ty of [facility] 4.2.7.2.[place] [phone] [address] 2021-03-07 2021-03-07 Refill IsabelEAST[facility] 1.2.840.114 [id number] [id number] Univers 00:00:00 00:00:00 Liborio PACHECO 350.1.13.10 i ty of [place].2.[place] [phone] Me dical NAL 044 [facility] 2021-03-02 2021-03-02 Laboratory Only, Adc Pob2 Test [facility] 1.2 .840.114 [id number] Univers 15:45:00 15:45:00 Only Liborio Hall 350.1.13.10 ity of [place].2.[place] [phone] Me dical NAL 225 [facility] 2021-03-02 2021-03-02 Outpatient R ISABEL [facility] [id number] Univers 11:00:00 12:15:26 LIBORIO aranda [facility] 2021-03-02 2021-03-02 Outpatient R ISABEL [facility] [id number] Univers 11:00:00 11:00:00 LIBORIO rohan [facility] 2021-03-02 2021-03-02 Outpatient R ISABEL [facility] [id number] [id number] Univers 11:00:00 11:00:00 LIBORIO [facility] 2021-03-02 2021-03-02 Orders Doctor PULLIAM 1.2.840.114 [id number] Univers 00:00:00 00:00:00 Only Unassigned, TOYA 350.1.13.10 ity of [place] [facility] 4.2.7.2.686 Adelso as [phone] [facility] [address] 2021-02-15 2021-02-15 Office [facility] 1.2.840.114 [id number] Univers 13:30:00 13:45:00 Visit Jaxon TREJO 350.1.13.10 i ty of [facility] 4.2.7.2.[place] [id number] [facility] [address] 2021-02-15 2021-02-15 Outpatient [facility] [id number] Univers 13:30:00 13:30:00 JAXON aranda [facility] 2021-02-15 2021-02-15 Outpatient R [facility] [id number] Univers 13:30:00 13:30:00 JAXON aranda [facility] 2021-02-13 2021-02-13 Frame Feeder Alejandro, Simi Lab Main [facility] 1.2.8 40.114 [id number] Univers 13:40:33 13:55:33 Visit Maral Garsia 350.1.13.10 ity [facility] 4.2.7.2.[place] [phone] Pr dical NAL 353 [facility] 2021-02-13 2021-02-13 Outpatient R SAYRA [facility] [id number] Univers 13:45:00 13:45:00 MARAL aranda [facility] 2021-02-13 2021-02-13 Refindy DumontEASTERN [facility] 1.2.840.114 [id number] Univers 00:00:00 00:00:00 Shakeel PRIMARY 350.1.13.10 it y of [place]2.7.2.[place]OD[place]ICK [phone] Pr dical 0[address] [place] 2021-02-03 2021-02-03 Outpatient R YA QUINTANA [facility] [id number] Univers 11:30:00 12:19:04 YA QUINTANA i ty of [facility] 2021-02-03 2021-02-03 Office [facility] 1.2.840.114 [id number] Univers 11:15:56 12:19:04 Visit Ya PACHECO 350.1.13.10 i ty [facility] 4.2.[place].2.[place] [phone] Pr dical NAL 085 [facility] 2021-02-02 2021-02-02 Frame Feeder 2, Adc Lab [facility] 1.2.840.114 [id number] Univers 14:19:44 16:42:57 Visit Liborio Hall 350.1.13.10 ity [facility] 4.2.7.2.[place] [phone] Pr dical NAL 353 [facility] 2021-02-02 2021-02-02 Frame Feeder 2, [facility] Lab [facility] 1.2.840.114 [id number] Univers 14:19:44 14:34:44 Visit Liborio Hall 350.1.13.10 ity [facility] 4.2.7.2.[place] [phone] Pr dicmd NAL 353 [facility] 2021-02-02 2021-02-02 [facility] [id number] Univers 14:30:00 14:30:00 LIBORIO rosi [facility] 2021-02-02 2021-02-02 Outpatient [facility] [id number] Univers 13:20:00 14:20:07 LIBORIO rosi [facility] 2021-02-02 2021-02-02 Office [facility] 1.2.840.114 [id number] Univers 13:05:13 14:20:07 Visit Liborio PACHECO 350.1.13.10 i ty [facility] 4.2.7.2.[place] [phone] Pr dical NAL 044 [facility] 2021-02-02 2021-02-02 Telephone NILDA Zaragoza 1.2.840.114 [id number] Univers 00:00:00 00:00:00 [facility] 350.1.13.10 i ty of CLINICS 4[place]2.7.2.[place] [phone] [facility] [address] 2021-02-01 2021-02-01 Outpatient [facility] [id number] Univers 09:03:31 23:59:00 AUBRIE ity [facility] 2021-02-01 2021-02-01 [facility] [id number] Univers 09:03:31 23:59:00 AUBRIE ity [facility] 2021-02-01 2021-02-01 [facility] 1.2.840.114 [id number] Univers 09:00:00 23:59:00 Encounter Aubrie [facility] [id number] ity of [facility] [place] [id number] [facility] [address] 2021-01-23 2021-01-23 [id number] Univers 15:24:58 23:59:00 LUZMA [facility] 2021-01-23 2021-01-[address] [facility] 1.2.840.114 [id number] Univers 15:15:00 23:59:00 Encounter Luzma PACHECO [id number] [facility] [place] [phone] [facility] [address] 2021-01-23 2021-01-23 [id number] Univers 14:20:00 16:21:39 LUZMA [facility] 2021-01-23 2021-01-[address] [facility] 1.2.840.114 [id number] Univers 14:19:39 16:21:39 Visit Luzma [facility].13.10 [facility] [place] [id number] [address] 2021-01-23 2021-01-23 Orders Doctor PULLIAM 1.2.840.114 [id number] Univers 00:00:00 00:00:00 Only Unassigned, TOYA 350.1.13.10 ity of [facility] 4.2.7.2.686 [place] [id number] [facility] [address] 2021-01-15 2021-01-15 Emergency X Jo-Ann [facility] ERT [id number] Univers 15:11:00 19:02:00 ity of [facility] 2021-01-15 2021-01-15 Emergency Charley [facility] 1.2.840.114 [id number] Univers 15:11:00 19:02:00 Dianna PACHECO 350.1.13.10 i ty of [place] 4.2.7.2.686 [facility] [id number] [address] 2021-01-09 2021-01-09 [facility] [id number] Univers 09:42:00 11:39:00 ELSY itrohan of [facility] 2021-01-09 2021-01-09 Emergency [facility] 1.2.840.114 [id number] Univers 09:42:00 11:39:00 Elsy PACHECO 350.1.13.10 ity of [place] 4.2.7.2.686 [facility] [phone] [address] 2020-12-20 2020-12-20 Outpatient R [facility] [id number] Univers 11:15:00 11:15:00 JAXON aranda of [facility] 2020-12-20 2020-12-20 Office [facility] 1.2.840.114 [id number] Univers 10:07:43 10:22:43 Visit Jaxon TREJO 350.1.13.10 i ty of [facility] 4.2.7.2.[place] [phone] [facility] [address] 2020-12-19 2020-12-19 Frame Feeder Alejandro, Adc Lab Main [facility] 1.2.8 40.114 [id number] Univers 14:04:03 14:19:03 Visit Maral Garsia 350.1.13.10 ity of [place] [phone] Pr dical nal 353 [facility] 2020-12-19 2020-12-19 Outpatient R SAYRA [facility] [id number] Univers 14:15:00 14:15:00 VINITHA ity of [facility] 2020-12-19 2020-12-19 Orders Doctor REYES 1.2.840.114 [id number] Univers 00:00:00 00:00:00 Only Unassigned, TOYA 350.1.13.10 ity of [place] [facility] 4.2.7.2.686 [place] [phone] [address] 2020-12-18 2020-12-18 Refill Bonilla [facility] 1.2.840.114 [id number] Univers 00:00:00 00:00:00 Art MULTISPEC 350.1.13.10 ity of [place] [phone] [address] [facility] 2020-12-18 2020-12-18 Refill Bonilla [facility] 1.2.840.114 [id number] Univers 00:00:00 00:00:00 Art MULTISPEC 350.1.13.10 ity of [place] IALTY 4.2.7.2.686 [facility] [place] [phone] [address] [facility] 2020-12-08 2020-12-08 Ancillary Therapist, Adc Pulmonary [facility] 1.2.840.114 [id number] Univers 10:23:30 11:23:30 Visit Art Crystal 350.1. 13.10 ity of [place] [phone] Pr dical nal 296 [facility] 2020-12-08 2020-12-08 Frame Feeder Lab, Mao - Remington [facility] 1.2.840.1 14 [id number] Univers 08:46:42 09:01:42 Visit Satnam [facility] 350.1.13.10 ity of [place] 4.2.7.2.686 [place] as Neno?Blea [phone] Pr darshana rich 353 [facility] Office [facility] 2020-12-08 2020-12-08 Outpatient R [facility] [id number] Univers 08:45:00 08:45:00 ity [facility] 2020-12-06 2020-12-06 Ancillary Therapist, Adc Pulmonary [facility] 1.2.840.114 [id number] Univers 10:31:58 15:48:59 Visit Art Crystal [place] 350.1. 13.10 ity [facility] 4.2.7.2.[place] [phone] [facility] 296 [facility] 2020-12-06 2020-12-06 [facility] [id number] Univers 14:30:00 14:59:05 [facility] 2020-12-06 2020-12-06 Office [facility] 1.2.840.114 [id number] Univers 14:17:11 14:59:05 Visit Critical access hospital 350.1.13.10 it y of [place] 4.2.7.2.686 [place] as NENO?BLEA [phone] Pr darshana DARIAN 220 [facility] 2020-12-06 2020-12-06 Outpatient R SATNAM [facility] [id number] Univers 14:30:00 14:30:00 [facility] 2020-12-06 2020-12-06 Outpatient R BONILLA [facility] [id number] Univers 10:00:00 10:00:00 ART aranda o f [facility] 2020-12-01 2020-12-01 Ancillary Therapist, Adc Pulmonary [facility] 1.2.840.114 [id number] Univers 10:32:58 11:17:49 Visit Art Crystal [place] 350.1. 13.10 ity [facility] 4.2.7.2.[place] [phone] [address] 2020-12-01 2020-12-01 Refill Kaitlin [facility] 1.2.133.420 [id number] Univers 00:00:00 00:00:00 Ramon S PRIMARY 350.1.13.10 i ty of [place] 4[place]2.7.2.[place] [phone] Pr dical [address] 2020-11-29 2020-11-29 Ancillary Therapist, Adc Pulmonary [facility] 1.2.[id number] [facility] 10:28:44 15:02:28 Visit Art Crystal 350.1. 13.10 ity of [place].2.[place] [phone] Pr dical nal 296 [facility] 2020-11-22 2020-11-22 Ancillary Therapist, [facility] Pulmonary [facility] 1.2.840.[id number] [facility] 11:05:11 13:42:42 Visit Art Crystal 350.1. 13.10 ity of [place].2.7.2.[place] [phone] Pr dical nal 296 [facility] 2020-11-20 2020-11-20 [facility] 1.2.840.114 [id number] Univers 00:00:00 00:00:00 Jaxon SMITHY 350.1.13.10 i ty of [place].2.[place] [phone] [address] 2020-11-20 2020-11-20 [facility] 1.2.840.114 [id number] Univers 00:00:00 00:00:00 Jaxon SMITHY 350.1.13.10 i ty of [place].2.[place] [phone] [address] 2020-11-19 2020-11-19 [facility] 1.2.840.114 [id number] Univers 00:00:00 00:00:00 Jaxon NEIL 350.1.13.10 i ty of [place].7.2.[place] [id number] [address] 2020-11-19 2020-11-19 [facility] 1.2.840.114 [id number] Univers 00:00:00 00:00:00 Shakeel PRIMARY 350.1.13.10 it y of [place] 4[place]2.7.2.[place] [phone] Pr dical [address] 2020-11-19 2020-11-19 [facility] 1.2.840.114 [id number] Univers 00:00:00 00:00:00 Jaxon NEIL 350.1.13.10 i ty of [place] 4.2.7.2.[place] [phone] [facility] [address] 2020-11-17 2020-11-17 Ancillary Therapist, [facility] Pulmonary [facility] 1.2.840.114 [id number] Univers 10:21:38 11:21:38 Visit Art Crystal 350.1. 13.10 ity of [place] 4.2.7.2.[place] [phone] Pr dical nal 296 [facility] 2020-11-10 2020-11-10 Ancillary Therapist, [facility] Pulmonary [facility] 1.2.840.114 [id number] Univers 10:19:13 13:22:42 Visit Art Crystal 350.1. 13.10 ity of [place] 4.2.7.2.[place] [phone] Pr dical nal 296 [facility] 2020-11-08 2020-11-08 Office [facility] 1.2.840.[id number] [facility] 08:58:37 11:43:57 Visit Liborio Pacheco 350.1.13.10 i ty of [place] 4.2.7.2.[place] [phone] Pr dical nal 044 [facility] 2020-11-08 2020-11-08 Office [facility] 1.2.840.[id number] [facility] 08:58:37 11:43:57 Visit Liborio Pacheco 350.1.13.10 i ty of [place] 4.2.7.2.[place] [phone] Pr dical nal 044 [facility] 2020-11-08 2020-11-08 Ancillary Therapist, Adc Pulmonary [facility] 1.2.840.114 [id number] Univers 10:29:32 11:43:37 Visit Art Crystal Junior 350.1. 13.10 ity of [place].2.7.2.[place] [phone] Pr dical nal 296 [facility] 2020-11-08 2020-11-08 Office [facility] 1.2.840.114 [id number] Univers 10:08:04 10:08:11 Visit Liborio Pacheco 350.1.13.10 i ty of [place] 4.2.7.2.[place] [phone] Pr dical nal 044 [facility] 2020-11-08 2020-11-08 Office [facility] 1.2.840.114 [id number] Univers 10:08:04 10:08:11 Visit Liborio Pacheco 350.1.13.10 i ty of [place] 4.2.7.2.[place] [phone] Pr dical nal 044 [facility] 2020-11-08 2020-11-08 Outpatient R ISABEL [facility] [id number] Univers 09:00:00 09:00:00 LIBORIO aranda [facility] 2020-11-04 2020-11-04 Outpatient R ELIZABET [facility] [id number] Univers 12:00:00 12:00:00 SAM aranda [facility] 2020-11-04 2020-11-04 Frame Feeder Simi Allen Lab Main [facility] 1.2.8 40.114 [id number] Univers 11:11:44 11:26:44 Visit Sam Bradley 350.1.13.10 ity of [place] 4.2.7.2.[place] [phone] Pr dical nal 353 [facility] 2020-11-04 2020-11-04 Frame Feeder Simi Allen Lab Main [facility] 1.2.8 40.114 [id number] Univers 11:11:44 11:26:44 Visit Sam Bradley 350.1.13.10 ity of [place] 4.2.7.2.[place] [phone] Pr dical nal 353 [facility] 2020-11-04 2020-11-04 Ancillary Therapist, [facility] Pulmonary [facility] 1.2.840.114 [id number] Univers 09:52:53 10:52:53 Visit Art Crystal 350.1. 13.10 ity of [place] 4.2.7.2.[place] [phone] Pr dical nal 296 [facility] 2020-11-04 2020-11-04 Outpatient R BONILLA [facility] [id number] Univers 10:00:00 10:00:00 ART aranda o f [facility] 2020-11-04 2020-11-04 Orders Doctor REYES 1.2.840.114 [id number] Univers 00:00:00 00:00:00 Only Unassigned, TOYA 350.1.13.10 ity of [place] [facility] 4.2.7.2.686 [place] as [phone] [facility] 00[address] [place] 2020-11-04 2020-11-04 Orders Doctor REYES 1.2.840.114 [id number] Univers 00:00:00 00:00:00 Only Unassigned, TOYA 350.1.13.10 ity of [place] [facility]OSPITAL 4.2.7.2.686 [place] [phone] [facility] 00[address] [place] 2020-11-03 2020-11-03 [facility] 1.2.840.114 [id number] Univers 00:00:00 00:00:00 (Out) , [facility] 350.1.13.10 i ty of CL[place] 4[place]2.7.2.[place] [phone] [facility] [address] 2020-11-01 2020-11-01 Ancillary Therapist, [facility] Pulmonary [facility] 1.2.840.114 [id number] Univers 10:07:19 11:07:19 Visit Art Crystal 350.1. 13.10 ity of [place] 4.[place].7.2.[place] [phone] Pr dical nal 296 [facility] 2020-10-28 2020-10-28 Telephone Kenneth [facility] 1.2.093.000 [id number] Univers 00:00:00 00:00:00 Summer Pacheco 350.1.13.10 i ty of [place].2.[place] [phone] Pr dical nal 296 [facility] 2020-10-25 2020-10-25 Ancillary Therapist, Adc Pulmonary [facility] 1.2.840.114 [id number] Univers 10:08:08 13:18:39 Visit Art Crystal 350.1. 13.10 ity of [place] 4.2.7.2.[place] [phone] Pr dical nal 296 [facility] 2020-10-21 2020-10-21 Frame Feeder Alejandro, [facility] Lab Main [facility] 1.2.8 40.114 [id number] Univers 12:38:49 12:53:49 Visit Liborio Hall 350.1.13.10 ity of [place] 4.2.7.2.[place] [phone] Pr dical nal 353 [facility] 2020-10-21 2020-10-21 Office Isabel [facility] 1.2.840.114 [id number] Univers 10:31:03 12:29:56 Visit Liborio Pacheco 350.1.13.10 i ty of [place] 4[place]2.7.2.[place] [phone] Pr dical nal 044 [facility] 2020-10-21 2020-10-21 Outpatient R ISABEL [facility] [id number] Univers 10:40:00 10:40:00 LIBORIO aranda of [facility] 2020-10-21 2020-10-21 Refill Tim [facility] 1.2.840.114 [id number] Univers 00:00:00 00:00:00 Shakeel DENNY 350.1.13.10 it y of [place] 4[place]2.7.2.[place] [phone] Pr dical [address] 2020-10-21 2020-10-21 Refill [facility] 1.2.840.114 [id number] Univers 00:00:00 00:00:00 Liborio Pacheco 350.1.13.10 i ty of [place] 4.[place].7.2.[place] [phone] Pr dical nal 044 [facility] 2020-10-21 2020-10-21 Refill [facility] 1.2.840.114 [id number] Univers 00:00:00 00:00:00 Shakeel FAMILY 350.1.13.10 it y of MEDICINE 4.2.7.2.686 [place] CLINIC - [phone] [address] 2020-10-21 2020-10-21 Refill [facility] 1.2.840.114 [id number] Univers 00:00:00 00:00:00 Shakeel PRIMARY 350.1.13.10 it y of [place] 4[place].2.[place] [phone] Pr dical 044 [place] 2020-10-21 2020-10-21 Refill [facility] 1.2.840.114 [id number] Univers 00:00:00 00:00:00 Liborio Pacheco 350.1.13.10 i ty of [place] 4.2.7.2.[place] [phone] Pr dical nal 044 [facility] 2020-10-18 2020-10-19 Ancillary Therapist, Adc Pulmonary [facility] 1.2.840.114 [id number] Univers 13:00:21 07:46:33 Visit Art Crystal 350.1. 13.10 ity of [place].2.[place] [phone] Pr dical nal 296 [facility] 2020-10-18 2020-10-18 Outpatient R BONILLA [facility] [id number] Univers 13:00:00 13:00:00 ART carlos [facility] 2020-10-18 2020-10-18 Orders Doctor REYES 1.2.840.114 [id number] Univers 00:00:00 00:00:00 Only Unassigned, TOYA 350.1.13.10 ity of [place] HOSPITAL 4.2.7.2.686 [place] as [phone] [facility] 00[address] [place] 2020-10-17 2020-10-17 Pre Visit Tim [facility] 1.2.162.433 [id number] Univers 00:00:00 00:00:00 Outreach Shakeel Pacheco 350.1.13.10 ity of [place].2.[place] [phone] Pr dical nal 044 [facility] 2020-10-12 2020-10-12 Outpatient R DADA SANDHU [facility] [id number] Univers 15:00:00 15:00:00 ity [facility] 2020-10-12 2020-10-12 Telephone Mcgrew, NILDA 1.2.840.114 [id number] Univers 00:00:00 00:00:00 Nephrology Y HEALTH 350.1.13.10 ity of CL[place] 4[place]2.7.2.[place] [phone] [facility] [address] [place] 2020-10-10 2020-10-10 Frame Feeder Alejandro, Adc Lab Main [facility] 1.2.8 40.114 [id number] Univers 10:13:27 10:28:27 Visit Shakeel Dumont 350.1.13.10 ity of [place] 4.2.7.2.[place] [phone] Pr dical nal 353 [facility] 2020-10-10 2020-10-10 Outpatient R TIM [facility] [id number] Univers 10:00:00 10:00:00 SHAKEEL aranda [facility] 2020-10-05 2020-10-05 Patient Doctor REYES 1.2.840.114 [id number] Univers 00:00:00 00:00:00 Secure Msg Unassigned, TOYA 350.1.13.10 ity of [place] [facility]OSPITAL 4.2.7.2.686 [place] as [phone] [facility] [address] 2020-10-05 2020-10-05 Telephone NILDA Martinez 1.2.840.114 [id number] Univers 00:00:00 00:00:00 [facility] 350.1.13.10 ity of [place] CL[place]ICS [place]2.7.2.[place] [phone] [facility] [address] 2020-09-29 2020-09-29 Frame Feeder Draw, Clc-Bls Lab [facility] 1.2.8 40.114 [id number] Univers 16:38:25 16:53:25 [facility] 350.1.13.10 ity of [place].2.7.2.[place] [phone] [facility] [address] Office Building 2020-09-29 2020-09-29 Outpatient [facility] [id number] Univers 15:00:00 15:00:00 [facility] 2020-09-29 2020-09-29 Outpatient R [facility] [id number] Univers 15:00:00 15:00:00 [facility] 2020-09-27 2020-09-27 Outpatient R [facility] [id number] Univers 11:00:00 11:00:00 [facility] 2020-09-27 2020-09-27 Outpatient Ab [facility] [id number] Univers 11:00:00 11:00:00 [facility] 2020-09-25 2020-09-25 Telephone Tim [facility] 1.2.364.283 [id number] Univers 00:00:00 00:00:00 Shakeel FAMILY 350.1.13.10 it y of MEDICINE 4.2.7.2.686 [place] CLINIC - [phone] [address] 2020-09-21 2020-09-21 Office [facility] 1.2.840.114 [id number] Univers 10:53:17 11:08:17 Visit Jaxon TREJO 350.1.13.10 i ty of [facility] 4.2.7.2.[place] [phone] [address] 2020-09-21 2020-09-21 Outpatient [facility] [id number] Univers 11:00:00 11:00:00 JAXON ity of [facility] 2020-09-02 2020-09-02 [facility] 1.2.840.114 [id number] Univers 00:00:00 00:00:00 Jaxon NEIL 350.1.13.10 i ty of [facility] 4.2.7.2.[place] [phone] [address] 2020-08-29 2020-08-29 Office Chan, [facility] 1.2.872.836 [id number] Univers 09:06:54 10:22:12 Visit Fady Tinajero 350.1.13.10 ity of [place] 4.2.7.2.686 [place] as BANK [phone] [facility] [place] 2020-08-29 2020-08-29 Office Chan, [facility] 1.2.625.967 [id number] Univers 09:06:54 10:22:12 Visit Fady Tinajero 350.1.13.10 ity of [place] 4.2.7.2.686 [place] as BANK [phone] [facility] [place] 2020-08-29 2020-08-29 Outpatient [facility] [id number] Univers 09:00:00 09:00:00 FADY ity [facility] 2020-08-29 2020-08-29 [facility] 1.2.840.114 [id number] Univers 00:00:00 00:00:00 Jaxon NEIL 350.1.13.10 i ty of [facility] 4.2.7.2.686 [place] [phone] [address] 2020-08-24 2020-08-24 Frame Feeder Alejandro, Simi Lab Main [facility] 1.2.8 40.114 [id number] Univers 11:42:16 11:57:16 Visit Shakeel Dumont 350.1.13.10 ity [facility] 4.2.7.2.[place] [phone] Pr dical nal 353 [facility] 2020-08-24 2020-08-24 Outpatient R TIM [facility] [id number] Univers 11:45:00 11:45:00 SHAKEEL ity [facility] 2020-08-20 2020-08-20 Reggie Escoto [facility] 1.2.840.114 [id number] Univers 00:00:00 00:00:00 Lisandra PRIMARY 350.1.13.10 it y of [place].2.[place] [phone] Pr dical 044 [place] 2020-08-17 2020-08-17 Reg[facility] 1.2.840.114 [id number] Univers 00:00:00 00:00:00 Jaxon TREJO 350.1.13.10 i ty of [facility] 4.2.7.2.[place] [phone] [facility] 144 [place] 2020-08-15 2020-08-15 Reg[facility] 1.2.840.114 [id number] Univers 00:00:00 00:00:00 Shakeel PRIMARY 350.1.13.10 it y of [place].2.[place] 344.3961192 Pr dical 044 [place] 2020-08-15 2020-08-15 Reggie [facility] 1.2.840.114 [id number] Univers 00:00:00 00:00:00 Jaxon TREJO 350.1.13.10 i ty of [place] 4.2.7.2.[place] [id number] [facility] [address] [place] 2020-08-08 2020-08-08 Reggie [facility] 1.2.840.114 [id number] Univers 00:00:00 00:00:00 Shakeel FAMILY 350.1.13.10 it y of MEDICINE 4.2.7.2.686 [place] CLINIC - [phone] [address] 2020-08-06 2020-08-06 Orders Doctor REYES 1.2.840.114 [id number] Univers 00:00:00 00:00:00 Only Unassigned, TOYA 350.1.13.10 ity of [place] [facility] 4.2.7.2.686 [place] as [phone] [address] 2020-08-05 2020-08-05 Outpatient R MIKEY [facility] [id number] Univers 09:30:00 09:30:00 LEXI ity [facility] 2020-08-04 2020-08-04 Office Bairon [facility] 1.2.840.114 [id number] Univers 11:20:54 11:52:00 Visit Ya Pacheco 350.1.13.10 i ty [facility] 4.2.7.2.[place] [phone] Pr dical nal 085 [facility] 2020-08-04 2020-08-04 Outpatient R YA QUINTANA [facility] [id number] Univers 11:30:00 11:30:00 YA QUINTANA i ty of [facility] 2020-08-02 2020-08-02 Refindy [facility] 1.2.840.114 [id number] Univers 00:00:00 00:00:00 Shakeel RAMÍREZ 350.1.13.10 it y of [facility] 4.2.7.2.686 [place] CLINIC - [phone] [address] 2020-07-29 2020-07-29 Outpatient [facility] [id number] Univers 12:30:00 12:30:00 JAXON aranda [facility] 2020-07-29 2020-07-29 Frame Feeder Alejandro, Simi Lab Main [facility] 1.2.8 40.114 [id number] Univers 11:02:03 11:17:03 Visit Jaxon Carrasco 350.1.13.10 ity [facility] [place].2.7.2.[place] [phone] Me dical nal 353 [facility] 2020-07-29 2020-07-29 Telephone [facility] 1.2.287.943 [id number] Univers 00:00:00 00:00:00 Jaxon TREJO 350.1.13.10 i ty of [facility] 4.2.7.2.[place] [phone] [address] 2020-07-27 2020-07-27 Outpatient [facility] [id number] Univers 11:00:00 11:00:00 JAXON aranda [facility] 2020-07-27 2020-07-27 Office [facility] 1.2.840.114 [id number] Univers 10:30:35 10:45:35 Visit Jaxon TREJO 350.1.13.10 i ty of [facility] 4.2.7.2.[place] [phone] [address] 2020-07-22 2020-07-22 Orders Doctor REYES 1.2.840.114 [id number] Univers 00:00:00 00:00:00 Only Unassigned, TOYA 350.1.13.10 ity of [place] [facility] 4.2.7.2.686 [place] as [phone] [address] 2020-07-12 2020-07-12 Orders Doctor REYES 1.2.840.114 [id number] Univers 00:00:00 00:00:00 Only Unassigned, TOYA 350.1.13.10 ity of [place] [facility] 4.2.7.2.686 [place] [id number] [address] 2020-07-05 2020-07-05 Outpatient R MIKEY [facility] [id number] Univers 09:30:00 09:30:00 LEXI aranda [facility] 2020-07-01 2020-07-01 Orders Doctor REYES 1.2.840.114 [id number] Univers 00:00:00 00:00:00 Only Unassigned, TOYA 350.1.13.10 ity of [place] [facility] 4.2.7.2.686 [place] as [id number] [address] 2020-06-29 2020-06-29 Reggie Barreto [facility] 1.2.840.114 [id number] Univers 00:00:00 00:00:00 Bartolo PRIMARY 350.1.13.10 it [place] [phone] Pr dical [address] 2020-06-18 2020-06-18 Patient Tim [facility] 1.2.840.114 [id number] Univers 00:00:00 00:00:00 Secure Msg Shakeel FAMILY 350.1.13.10 ity of MEDICINE 4.2.7.2.686 [place] as CLINIC - [phone] [facility] [address] [facility] 2020-06-17 2020-06-17 Orders Doctor REYES 1.2.840.114 [id number] Univers 00:00:00 00:00:00 Only Unassigned, TOYA 350.1.13.10 ity of [place] [facility] 4.2.7.2.686 [place] [phone] [facility] [address] 2020-06-15 2020-06-15 [facility]ERSIT 1.2.840.114 [id number] Univers 10:32:30 10:41:36 Visit [facility] 350.1.13.10 ity [place] [phone] [facility] [address] 2020-06-15 2020-06-15 [facility] [id number] Univers 09:26:13 09:56:13 Visit [facility] 350.1.13.10 [place] [phone] [facility] [address] 2020-06-15 2020-06-15 Outpatient R MAL [facility] [id number] Univers 09:30:00 09:30:00 SANDRA taborFormerly [facility] 2020-06-15 2020-06-15 Outpatient R MAL [facility] [id number] Univers 09:30:00 09:30:00 SANDRA taborFormerly [facility] 2020-06-14 2020-06-14 Outpatient Ab VACA [facility] [id number] Univers 09:00:00 09:00:00 LEXI ity of [facility] 2020-06-14 2020-06-14 Refindy Dumont [facility] 1.2.840.114 [id number] Univers 00:00:00 00:00:00 Shakeel RAMÍREZ 350.1.13.10 it y of MEDICINE 4.2.7.2.686 [place] as CLINIC - [phone] [address] 2020-06-08 2020-06-08 Outpatient R DANILO [facility] [id number] Univers 14:15:00 14:15:00 JAXON leandery of [facility] 2020-06-08 2020-06-08 Ancillary Lucía Vegas [facility] 1.2.840. 114 [id number] Univers 13:12:02 13:57:02 Visit Tamiko Aceves 350.1.13.1 0 ity of [facility] [place] [phone] [facility] [address] 2020-06-08 2020-06-08 Office Danilo [facility] 1.2.840.114 [id number] Univers 13:12:26 13:27:26 Visit Jaxon TREJO 350.1.13.10 i ty of [facility] [place] [phone] [facility] [address] 2020-06-08 2020-06-08 Orders Doctor PULLIAM 1.2.840.114 [id number] Univers 00:00:00 00:00:00 Only Unassigned, TOYA 350.1.13.10 ity of [place] [facility] 4.2.7.2.686 [place] [phone] [facility] [address] 2020-05-25 2020-05-25 Office NILDA Palacios 1.2.548.677 [id number] Univers 13:57:31 15:41:39 Visit [facility] 350.1.13.10 i ty of [facility] [place] [phone] [facility] [address] 2020-05-25 2020-05-25 Outpatient R PHILIP [facility] [id number] Univers 14:00:00 14:00:00 MARLEN ity of [facility] 2020-05-25 2020-05-25 Patient Doctor REYES 1.2.840.114 [id number] Univers 00:00:00 00:00:00 Secure Msg Unassigned, TOYA 350.1.13.10 ity of [place] [facility] 4.2.7.2.686 [place] [phone] [facility] 0[address] [place] 2020-05-24 2020-05-24 Outpatient R LAWRENCE [facility] [id number] Univers 11:45:00 11:45:00 JAYNE aranda [facility] 2020-05-24 2020-05-24 Frame Feeder Alejandro, Adc Lab Main [facility] 1.2.8 40.114 [id number] Univers 10:11:45 10:26:45 Visit Jayne Bravo 350.1.13.10 ity of [place] [phone] Pr dical [facility] 2020-05-24 2020-05-24 Orders Doctor REYES 1.2.840.114 [id number] Univers 00:00:00 00:00:00 Only Unassigned, TOYA 350.1.13.10 ity of [place] [facility] 4.2.7.2.686 [place] [phone] [facility] [address] [place] 2020-05-23 2020-05-23 Office NILDA Giles 1.2.171.135 [id number] Univers 09:33:55 10:59:33 Visit Fady Tinajero 350.1.13.10 ity of [facility] 4.2.7.2.686 [place] BANK [phone] [facility] BLDG. [address] 2020-05-23 2020-05-23 Outpatient R CHAN [facility] [id number] Univers 09:45:00 09:45:00 FADY ity [facility] 2020-05-19 2020-05-19 Telephone NILDA Carrasco 1.2.840.114 [id number] Univers 00:00:00 00:00:00 Jaxon Tinajero 350.1.13.10 it y of [facility] 4.2.7.2.686 [place] BANK [phone] [facility] [address] 2020-05-18 2020-05-18 [facility] 1.2.840.114 [id number] Univers 08:32:46 09:18:28 Visit Trish Tinajero 350.1.13.10 it y of [facility] 4.2.7.2.686 [place] BANK [phone] [facility] [address] 2020-05-18 2020-05-18 [facility] [id number] Univers 08:45:00 08:45:00 TRISH ity of [facility] 2020-05-13 2020-05-13 Hospital [facility] 1.2.840.114 [id number] Univers 12:40:28 23:59:00 Encounter Jaxon Pacheco 350.1.13.10 ity [facility] [place]2.[place] [phone] [facility] [address] 2020-05-13 2020-05-13 Outpatient R [facility] [id number] Univers 00:00:00 00:00:00 JAXON aranda of [facility] 2020-05-11 2020-05-11 [facility]phone [facility] 1.2.840.114 [id number] Univers 00:00:00 00:00:00 [facility] 350.1.13.10 i ty of [facility] [place].2.[place] [phone] [facility] [address] 2020-04-28 2020-04-28 Out[facility] [id number] Univers 14:50:00 14:50:00 OMAR ity of [facility] 2020-04-28 2020-04-28 Office [facility] 1.2.840.114 [id number] Univers 09:55:56 10:25:56 Visit Jaxon TREJO 350.1.13.10 i ty of [facility] [place].2.[place] [id number] [facility] [address] 2020-04-27 2020-04-27 Frame Feeder Alejandro, Simi Lab Main [facility] 1.2.8 40.114 [id number] Univers 12:56:14 13:11:14 Visit Kirk Vargaston 350.1.13.10 ity of [place] [phone] Pr dical nal [address] Building 2020-04-27 2020-04-27 Outpatient R SAM [facility] [id number] Univers 13:00:00 13:00:00 KIRK ity [facility] 2020-04-23 2020-04-23 Patient Doctor REYES 1.2.840.114 [id number] Univers 00:00:00 00:00:00 Secure Msg Unassigned, TOYA 350.1.13.10 ity of [place] [facility] 4.2.7.2.686 [place] [id number] [facility] [address]19 [address] 2020-04-18 2020-04-18 Refill Doctor [facility] 1.2.840.114 [id number] Univers 00:00:00 00:00:00 Unassigned, PRIMARY 350.1.13.10 ity of [place] CARE [place] [phone] Pr dical [address]44 [address] 2020-04-13 2020-04-13 Office Philip, UNIVERSIT 1.2.273.719 [id number] Univers 13:49:29 15:16:19 Visit [facility] 350.1.13.10 i ty of [facility] [place].2.[place] [phone] [facility] [address] 2020-04-13 2020-04-13 Outpatient R PHILIP [facility] [id number] Univers 14:00:00 14:00:00 [facility] 2020-04-04 2020-04-04 Telephone Philip, UNIVERSIT 1.2.840.114 [id number] Univers 00:00:00 00:00:00 [facility] 350.1.13.10 i ty of [facility] [place] [phone] [facility] [address] 2020-04-03 2020-04-03 Outpatient R FARZAD [facility] [id number] Univers 14:30:00 14:30:00 OMAR ity of [facility] 2020-03-31 2020-03-31 Patient Doctor REYES 1.2.840.114 [id number] Univers 00:00:00 00:00:00 Secure Msg Unassigned, TOYA 350.1.13.10 ity of [place] [facility] 4.2.7.2.686 [place] [phone] [facility] 082 [address] 2020-03-30 2020-03-30 Office Tim [facility] 1.2.840.114 [id number] Univers 15:03:41 15:33:41 Visit Shakeel FAMILY 350.1.13.10 it y of MEDICINE 4.2.7.2.686 [place] CLINIC - [phone] [address] 2020-03-30 2020-03-30 Outpatient R BONILLA [facility] [id number] Univers 13:00:00 13:00:00 MOHAMMED ity o f [facility] 2020-03-30 2020-03-30 Orders Doctor REYES 1.2.840.114 [id number] Univers 00:00:00 00:00:00 Only Unassigned, TOYA 350.1.13.10 ity of [place] [facility] 4.2.7.2.686 [place] [phone] [facility] [address] 2020-03-24 2020-03-24 Frame Feeder Pcp-Lab [facility] 1.2.840.114 [id number] Univers 12:50:48 13:05:48 Visit Shakeel Dumont 350.1.13.10 ity of [place]2.[place] [phone] Pr dical [address] 2020-03-24 2020-03-24 Telemedici Tim [facility] 1.2.840.114 [id number] Univers 10:44:27 11:14:27 ne Visit Shakeel FAMILY 350.1.13.10 i ty of MEDIC[place] 4.2.7.2.686 [place] CLINIC - [phone] [facility] [address] [place] 2020-03-24 2020-03-24 Outpatient R TIM [facility] [id number] Univers 11:00:00 11:00:00 SHAKEEL ity of [facility] 2020-03-24 2020-03-24 Telephone Bonilla [facility] 1.2.735.646 [id number] Univers 00:00:00 00:00:00 [facility] MULTISPEC 350.1.13.10 ity of [facility] [place].7.2.[place] C[place] [phone] [facility] [place] [address] [facility] 2020-03-23 2020-03-23 Telephone Philip [facility] 1.2.840.114 [id number] Univers 00:00:00 00:00:00 [facility] HEALTH 350.1.13.10 i ty of [facility] CLINICS 4[place].7.2.[place] [id number] [facility] [address] 2020-03-23 2020-03-23 Telephone Philip [facility] 1.2.840.114 [id number] Univers 00:00:00 00:00:00 [facility] HEALTH 350.1.13.10 i ty of [facility] CLINICS [place].2.[place] [phone] [facility] [address] 2020-03-22 2020-03-22 Office NILDA Crystal 1.2.510.270 [id number] Univers 10:55:03 11:25:32 Visit [facility] 350.1.13.10 ity of [facility] CLINICS 4.2.7.2.[place] [id number] [facility] 0[address] 2020-03-22 2020-03-22 Outpatient R BONLILA [facility] [id number] Univers 11:00:00 11:00:00 ART aranda o f [facility] 2020-03-17 2020-03-17 Office Tim [facility] 1.2.840.114 [id number] Univers 08:07:57 09:27:51 Visit Shakeel RAMÍREZ 350.1.13.10 it y of MEDICINE 4.2.7.2.686 [place] CLINIC - [phone] [address] 2020-03-17 2020-03-17 Outpatient R TIM [facility] [id number] Univers 08:00:00 08:00:00 SHAKEEL ity [facility] 2020-03-15 2020-03-15 Telephone Tim [facility] 1.2.003.193 [id number] Univers 00:00:00 00:00:00 Shakeel RAMÍREZ 350.1.13.10 it y of MEDIC[place] 4.2.7.2.686 [place] CLINIC - [phone] [address] 2020-03-14 2020-03-14 Frame Feeder Lab, [facility] [address] [facility] 1 .2.840.114 [id number] Univers 08:19:11 08:34:11 Visit TimShakeel banuelos 350.1.13.10 ity of MEDIC[place] 4.2.7.2.686 [place] CLINIC - [phone] [address] 2020-03-14 2020-03-14 Outpatient R [facility] [id number] Univers 08:15:00 08:15:00 ity [facility] 2020-03-11 2020-03-11 Telephone Tim [facility] 1..781.875 [id number] Univers 00:00:00 00:00:00 Shakeel RAMÍREZ 350.1.13.10 it y of MEDIC[place] 4.2.7.2.686 [place] CLINIC - [phone] [address] 2020-03-10 2020-03-10 Outpatient R [facility] [id number] Univers 08:00:00 08:00:00 ity [facility] 2020-03-02 2020-03-02 Transition Melanie Mejia 1.2.840.114 [id number] Univers 00:00:00 00:00:00 of Care Jared Vickers 350.1.13.10 ity of [place] [phone] [facility] [address] [place] 2020-02-29 2020-03-01 Hospital Kenyatta Boss 1 .2.840.114 [id number] Univers 15:42:00 17:30:00 Encounter Brianna Sanchez 350.1.13.10 ity of [facility] 4.2.7.2.686 [place] [phone] [facility] 0[address] [place] 2020-02-29 2020-02-29 Frame Feeder Lab, [facility] [address] [facility] 1 .2.840.114 [id number] Univers 07:56:25 08:11:25 Visit Marlen Palacios [place] FAMILY 3 50.1.13.10 ity of MEDIC[place] 4.2.7.2.686 [place] CLINIC - [phone] [address] 2020-02-29 2020-02-29 Outpatient R PHILIP [facility] [id number] Univers 08:00:00 08:00:00 [facility] 2020-02-24 2020-02-24 [facility] 1.2.840.114 [id number] Univers 00:00:00 00:00:00 Shakeel FAMILY 350.1.13.10 it y of MEDIC[place] 4.2.7.2.686 [place] CLINIC - [phone] [address] 2020-02-22 2020-02-22 Office NILDA Giles 1.2.464.886 [id number] Univers 09:19:01 11:19:16 Visit Fady Tinajero 350.1.13.10 ity of [facility] 4.2.7.2.686 [place] [facility] [phone] [facility] BLDG. [address] [place] 2020-02-22 2020-02-22 Outpatient R CHAN [facility] [id number] Univers 09:30:00 09:30:00 FADY ity [facility] 2020-02-22 2020-02-22 Patient Tim [facility] 1.2.840.114 [id number] Univers 00:00:00 00:00:00 Secure Msg Shakeel FAMILY 350.1.13.10 ity of [place]IC[place] 4.2.7.2.686 [place] CLINIC - [phone] [address] 2020-02-18 2020-02-18 Outpatient R CARMEN MOANNIKA [facility] [id number] Univers 20:00:00 20:00:00 DAMEON aranda [facility] 2020-02-18 2020-02-18 Frame Feeder Lab, Sleep JENNIFER 1.2.840.114 [id number] Univers 15:27:33 17:57:33 Visit Dameon Morales 350.1.13.10 ity of [place] [phone] [facility] [address] [place] 2020-02-18 2020-02-18 Pre Visit Tim MOANNIKA 1.2.223.490 [id number] Univers 00:00:00 00:00:00 Outreach Shakeel FAMILY 350.1.13.10 i ty of MEDIC[place] 4.2.7.2.686 [place] CLINIC - [phone] [address] 2020-02-18 2020-02-18 Orders Sherlynn, UNIVERSIT 1.2.914.522 [id number] Univers 00:00:00 00:00:00 Only Art Y HEALTH 350.1.13.10 ity of [place] CL[place]ICS [place] [id number] [facility] [address] [place] 2020-02-17 2020-02-17 Telephone CARLOS PalaciosIT 1.2.840.114 [id number] Univers 00:00:00 00:00:00 Marlen Y HEALTH 350.1.13.10 i ty of [place] CLINICS 4[place].2.[place] [phone] [facility] [address] [place] 2020-02-17 2020-02-17 Refill Tim MOANNIKA 1.2.840.114 [id number] Univers 00:00:00 00:00:00 Shakeel FAMILY 350.1.13.10 it y of MEDICINE 4.2.7.2.686 [place] CLINIC - [id number] [address] 2020-02-17 2020-02-17 Telephone Tim [facility] 1.2.339.916 [id number] Univers 00:00:00 00:00:00 Shakeel FAMILY 350.1.13.10 it y of MEDIC[place] 4.2.7.2.686 [place] CLINIC - [phone] [address] 2020-02-15 2020-02-15 Laboratory Only, Pcp Test [facility] 1.2.840. 114 [id number] Univers 09:46:28 10:01:28 Only Art Crystal PRIMARY 350.1.1 3.10 ity of [place].2.[place] [id number] [facility] [address] [place] 2020-02-15 2020-02-15 Office NILDA Freeman 1..840.114 78 [id number] Univers 09:04:06 09:36:35 Visit Trish Tinajero 350.1.13.10 it y of NATIONAL 4.2.7.2.686 [place] BANK [phone] [facility] BLDG. [address] [place] 2020-02-15 2020-02-15 Outpatient R LYDIA [facility] [id number] Univers 09:15:00 09:15:00 TRISH ity of [facility] 2020-02-03 2020-02-03 Office Tim [facility] 1.2.840.114 [id number] Univers 08:01:06 08:59:40 Visit Shakeel RAMÍREZ 350.1.13.10 it y of MEDIC[place] 4.2.7.2.686 [place] CLINIC - [phone] [address] 2020-02-03 2020-02-03 Outpatient R TIM [facility] [id number] Univers 08:00:00 08:00:00 SHAKEEL ity of [facility] 2020-02-01 2020-02-01 Case Nik YADI 1.2.840.114 [id number] Univers 00:00:00 00:00:00 [facility] 350.1.13.10 ity of [place] [id number] [facility] [address] [place] 2020-02-01 2020-02-01 Refill Tim [facility] 1.2.840.114 [id number] Univers 00:00:00 00:00:00 Shakeel FAMILY 350.1.13.10 it y of MEDIC[place] 4.2.7.2.686 [place] CLINIC - [phone] [address] 2020-01-27 2020-01-27 Patient Doctor [facility] 1.2.840.114 [id number] Univers 00:00:00 00:00:00 Secure Msg Unassigned, FAMILY 350.1.13.10 ity of [place] MEDICINE 4.2.7.2.686 [place] CLINIC - 345.0340789 [address] 2020-01-26 2020-01-26 Patient Doctor [facility] 1.2.840.114 [id number] Univers 00:00:00 00:00:00 Secure Msg Unassigned, FAMILY 350.1.13.10 ity of [place] MEDICINE 4.2.7.2.686 [place] CLINIC - [id number] [address] 2020-01-26 2020-01-26 [facility] 1..084.740 [id number] Univers 00:00:00 00:00:00 Shakeel FAMILY 350.1.13.10 it y of MEDIC[place] 4.2.7.2.686 [place] CLINIC - 605.5576881 [address] 2020-01-25 2020-01-25 [facility] 1.2.840.114 [id number] Univers 09:56:36 23:59:00 Encounter Aubrie Y HEALTH 350.1.13.10 ity of CL[place].2.[place] [id number] [address] 2020-01-25 2020-01-25 [facility] [id number] Univers 00:00:00 00:00:00 AUBRIE ity of [facility] 2020-01-25 2020-01-25 [facility] 1.2.840.114 [id number] Univers 00:00:00 00:00:00 Shakeel FAMILY 350.1.13.10 it y of MEDICINE 4.2.7.2.686 [place] CLINIC - [phone] [address] 2020-01-22 2020-01-22 Office Tim [facility] 1.2.840.114 [id number] Univers 13:26:28 14:55:22 Visit Shakeel RAMÍREZ 350.1.13.10 it y of MEDIC[place] 4.2.7.2.686 [place] CLINIC - 432.6494336 [address] 2020-01-22 2020-01-22 Outpatient R TIM [facility] [id number] Univers 13:30:00 13:30:00 SHAKEEL ity [facility] 2020-01-22 2020-01-22 Orders Doctor REYES 1.2.840.114 [id number] Univers 00:00:00 00:00:00 Only Unassigned, TOYA 350.1.13.10 ity of [place] [facility]OSPITAL 4.2.7.2.686 [place] [phone] [address] 2020-01-15 2020-01-15 Refill Doctor [facility] 1.2.840.114 [id number] Univers 00:00:00 00:00:00 Unassigned, PRIMARY 350.1.13.10 ity of [place] CARE [place].2.[place] PAVBETO[place] 139.6843456 [address] 2020-01-03 2020-01-03 Refill Doctor UNIVERSIT 1.2.418.012 [id number] Univers 00:00:00 00:00:00 Unassigned, Y HEALTH 350.1.13.10 ity of [place] CLINICS [place]2.[place].2.[place] 367.5682361 [address] 2020-01-01 2020-01-01 Case Bonilla, UNIVERSIT 1.2.723.464 [id number] Univers 00:00:00 00:00:00 Management Art Y HEALTH 350.1.13.10 ity of [place] CL[place]ICS [place] 564.1136721 [address] 2019-12-31 2019-12-31 Patient Doctor REYES 1.2.840.114 [id number] Univers 00:00:00 00:00:00 Secure Msg Unassigned, TOYA 350.1.13.10 ity of [place] [facility] 4.2.7.2.686 [place] [id number] [facility] [address] [place] 2019-12-30 2019-12-30 Outpatient R [facility] [id number] Univers 20:00:00 20:00:00 ity of [facility] 2019-12-30 2019-12-30 Frame Feeder Lab, Sleep JENNIFER 1.2.840.114 [id number] Univers 12:48:43 15:18:43 Visit Dameon Morales 350.1.13.10 ity of [place].2.[place] 569.6258260 [facility] [address] [place] 2019-12-29 2019-12-29 Patient Doctor HANG 1.2.840.114 [id number] Univers 00:00:00 00:00:00 Secure Msg Unassigned, FAMILY 350.1.13.10 ity of [place] MEDICINE 4.2.7.2.686 [place] CLINIC - [id number] [address] 2019-12-29 2019-12-29 Refill Tim [facility] 1.2.840.114 [id number] Univers 00:00:00 00:00:00 Shakeel FAMILY 350.1.13.10 it y of MEDICINE 4.2.7.2.686 [place] CLINIC - 404.1691841 [address] 2019-12-28 2019-12-28 Office NILDA Giles 1.2.319.039 [id number] Univers 09:08:55 10:39:29 Visit Fady Y 350.1.13.10 ity of NATIONAL 4.2.7.2.686 [place] BANK [phone] [facility] BLDG. [address] [place] 2019-12-28 2019-12-28 Outpatient R CHAN [facility] [id number] Univers 09:15:00 09:15:00 FDAY ity of [facility] 2019-12-28 2019-12-28 Orders Doctor REYES 1.2.840.114 [id number] Univers 00:00:00 00:00:00 Only Unassigned, TOYA 350.1.13.10 ity of [place] [facility]OSPITAL 4.2.7.2.686 [place] [phone] [address] 2019-12-27 2019-12-27 Refill Doctor [facility] 1.2.840.114 [id number] Univers 00:00:00 00:00:00 Unassigned, FAMILY 350.1.13.10 ity of [place] MEDICINE 4.2.7.2.686 [place] CLINIC - [id number] [address] 2019-12-27 2019-12-27 Refill Doctor [facility] 1.2.840.114 [id number] Univers 00:00:00 00:00:00 Unassigned, PRIMARY 350.1.13.10 ity of [place] CARE [place] 577.4556187 [facility] [address] [place] 2019-12-26 2019-12-26 Outpatient R [facility] [id number] Univers 14:45:00 14:45:00 ity [facility] 2019-12-25 2019-12-25 Laboratory Only, Pcp Test [facility] 1.2.840. 114 [id number] Univers 10:09:47 10:24:47 Only Art Crystal PRIMARY 350.1.1 3.10 ity of [place] 459.4438064 [facility] [address] [place] 2019-12-25 2019-12-25 Outpatient R BONILLA [facility] [id number] Univers 10:15:00 10:15:00 ART aranda o f [facility] 2019-12-22 2019-12-22 Office Tim [facility] 1.2.840.114 [id number] Univers 08:06:23 09:56:50 Visit Shakeel FAMILY 350.1.13.10 it y of MEDICINE 4.2.7.2.686 [place] CLINIC - 399.4357878 [address] 2019-12-22 2019-12-22 Outpatient [facility] [id number] Univers 08:00:00 08:00:00 SHAKEEL ity of [facility] 2019-12-14 2019-12-[address] [place], [place] [address]IT 1.2.840.114 [id number] Univers 08:56:57 23:59:00 Encounter Benny Tinajero HEALTH 350.1.13.10 ity of CL[place]ICS [place] [id number] [facility] [address] [place] 2019-12-14 2019-12-14 Outpatient R [facility] [id number] Univers 00:00:00 00:00:00 BENNY ity of [facility] 2019-12-08 2019-12-08 Refill Doctor [facility] 1.2.840.114 [id number] Univers 00:00:00 00:00:00 Unassigned, PRIMARY 350.1.13.10 ity of [place]ARE [place] [phone] [address] 2019-12-03 2019-12-03 Refill Doctor [facility] 1.2.840.114 [id number] Univers 00:00:00 00:00:00 Unassigned, PRIMARY 350.1.13.10 ity of [place] CARE [place] 950.5541958 [address] 2019-11-30 2019-11-30 Refill Tyrell [facility] 1.2.840.114 [id number] Univers 00:00:00 00:00:00 Tremaine PRIMARY 350.1.13.10 it y of [place] [phone] [address] 2019-11-27 2019-11-27 Outpatient R BARRY HINTON [facility] [id number] Univers 14:00:00 14:00:00 ity of [facility] 2019-11-27 2019-11-27 Telemedici Chacha Reddy [facility] 1.2.840.114 [id number] Univers 09:00:16 09:20:16 ne Visit Barry Hinton S PRIMARY 350.1.13.10 ity of [place] R CARE [id number] [place] PAVILLION [phone] [address] 2019-11-24 2019-11-25 Office Bong Mays [facility] 1.2.840.114 [id number] Univers 14:52:14 09:11:55 Visit Art Crystal Y HEALTH 350.1. 13.10 [place] [phone] [facility] [address] 2019-11-24 2019-11-24 Outpatient R BONILLA [facility] [id number] Univers 15:00:00 15:00:00 ART aranda o f [facility] 2019-11-21 2019-11-21 Refill Doctor [facility] 1.2.840.114 [id number] Univers 00:00:00 00:00:00 Unassigned, FAMILY 350.1.13.10 ity of [place] MEDICINE 4.2.7.2.686 [place] as CLINIC - [phone] [facility] [address] [facility] 2019-11-13 2019-11-14 Office Lisandra Escoto [facility] 1.2.840.114 [id number] Univers 10:58:52 07:52:19 Visit Lisha Barry S PRIMARY 350.1.13.10 [place] [phone] [facility] [address] 2019-11-13 2019-11-13 [facility] [place], [facility] 1.2.840.114 [id number] Univers 15:12:04 23:59:00 Encounter Art Tinajero HEALTH 350.1.13.10 it[place] [phone] [facility] [address] 2019-11-13 2019-11-13 Outpatient R BONILLA [facility] [id number] Univers 14:30:00 14:30:00 ART aranda o f [facility] 2019-11-11 2019-11-11 Office CARLOS [facility]IT 1.2.840.114 [id number] Univers 09:25:20 10:02:09 Visit Trish Y 350.1.13.10 it y of NATIONAL 4.2.7.2.686 [place] BANK [phone] [facility] BLDG. [address] 2019-11-11 2019-11-11 Outpatient R LYDIA, [facility] CAMPUS [id number] Univers 09:30:00 09:30:00 TRISH ity [facility] 2019-11-10 2019-11-10 Office Sheba GilesBoubacarAbi [facility] 1.2.840. 114 [id number] Univers 09:04:47 10:29:42 Visit Josh Melara Rohan 350.1.13.10 ity of [facility] 4.2.7.2.686 [place] BANK [phone] [facility] BLDG. [address] [place] 2019-11-10 2019-11-10 Outpatient R KELTON [facility] [id number] Univers 09:15:00 09:15:00 JOSH ity [facility] 2019-11-10 2019-11-10 Laboratory Only, Pcp Test [facility] 1.2.840. 114 [id number] Univers 08:39:56 08:54:56 Only Art Crystal [facility] 350.1.1 3.10 it[place] of C[place] [id number] Pr dical [address] [place] 2019-11-10 2019-11-10 Transition Melanie Mejia 1.2.840.114 [id number] Univers 00:00:00 00:00:00 of Care Jared Vickers 350.1.13.10 ity of [place].2.[place] [id number] [facility] 403 [place] 2019-11-04 2019-11-07 Hospital Brett Luciano 1.2.840. 114 [id number] Univers 17:11:00 17:55:00 Encounter Dona Zelaya 350.1.13.10 ity of [facility] 4.2.7.2.686 [place] [id number] [facility] 094 [place] 2019-11-02 2019-11-02 [facility] 1.2.840.114 [id number] Univers 00:00:00 00:00:00 Bartolo RAMÍREZ 350.1.13.10 it y of MEDICINE 4.2.7.2.686 [place] CLINIC - [id number] [address] 2019-11-02 2019-11-02 Refill Christian-Nwo [facility] 1.2.840.114 [id number] Univers 00:00:00 00:00:00 saChristian PRIMARY 350.1.13.10 [facility] 4.2.7.2.686 [place] PAVILLION [id number] Pr dical 044 [place] 2019-10-31 2019-10-31 Outpatient R UNKNOWN, [facility] [id number] Univers 13:45:00 13:45:00 ATTENDING ity [facility] 2019-10-28 2019-10-28 Telephone CARLOS Crystal 1.2.840.114 [id number] Univers 00:00:00 00:00:00 [facility] HEALTH 350.1.13.10 ity of [place] CL[place] [phone] [address] 2019-10-27 2019-10-27 Outpatient R BONILLA [facility] [id number] Univers 15:00:00 15:00:00 [facility] ity o f [facility] 2019-10-27 2019-10-27 Telemedici NILDA Crystal 1.2.840.114 [id number] Univers 09:04:00 10:55:09 ne Visit [facility] HEALTH 350.1.13.10 ity of [place] CL[place]ICS [place] [id number] [address] 2019-10-21 2019-10-21 Office NILDA Emanuel 1.2.273.233 [id number] Univers 11:27:40 12:15:39 Visit [facility] HEALTH 350.1.13.10 ity of CLINICS 4[place]2.[place].2.[place] [id number] [address] 2019-10-21 2019-10-21 [facility] [id number] Univers 11:30:00 11:30:00 SANTHISRI ity [facility] 2019-10-16 2019-10-16 Ancillary Malena Medina [facility] 1 .2.840.114 [id number] Univers 10:21:55 11:01:55 Visit Angela Crenshaw PRIMARY 350.1.13.10 ity of C[place] 4[place].2.[place] [id number] Pr dical [address] [place] 2019-10-12 2019-10-12 Telephone CARLOS CrystalIT 1.2.840.114 [id number] Univers 00:00:00 00:00:00 [facility] HEALTH 350.1.13.10 ity of [place] CLINICS 4.2.7.2.[place] [id number] [facility] 084 [place] 2019-10-12 2019-10-12 Orders Doctor REYES 1.2.840.114 [id number] Univers 00:00:00 00:00:00 Only Unassigned, TOYA 350.1.13.10 ity of [place] [facility] 4.2.7.2.686 [place] [id number] [facility] 009 [place] 2019-10-09 2019-10-09 Telephone Jadarandall [facility] 1.2.840.114 [id number] Univers 00:00:00 00:00:00 Art HEALTH 350.1.13.10 ity of [place] CL[place]ICS 4.2.[place].2.[place] [phone] [address] 2019-10-08 2019-10-08 Outpatient R [facility] [id number] Univers 10:20:00 10:20:00 ity of [facility] 2019-09-25 2019-09-25 Ancillary Malena Medina [facility] 1 .2.840.114 [id number] Univers 08:30:04 09:10:04 Visit Angela Crenshaw PRIMARY 350.1.13.10 ity of CARE 4.2.[place].2.[place] [phone] Pr dicmd [address] [place] 2019-09-25 2019-09-25 Outpatient R [facility] [id number] Univers 08:40:00 08:40:00 ity of [facility] 2019-09-24 2019-09-24 Reggie Rees [facility] 1.2.295.101 [id number] Univers 00:00:00 00:00:00 [place] FAMILY 350.1.13.10 it y of MEDICINE 4.2.7.2.686 [place] CLINIC - [phone] [address] 2019-09-23 2019-09-23 Orders Doctor PULLIAM 1.2.840.114 [id number] Univers 00:00:00 00:00:00 Only Unassigned, TOYA 350.1.13.10 ity of [place] [facility] 4.2.7.2.686 [place] [id number] [facility] 009 [place] 2019-09-22 2019-09-22 Office Bonilla [facility] 1.2.175.922 [id number] Univers 13:53:29 14:55:31 Visit [facility] HEALTH 350.1.13.10 ity of [facility] 4.[place].2.[place] [phone] [address] 2019-09-22 2019-09-22 Outpatient R BONILLA [facility] [id number] Univers 14:00:00 14:00:00 [facility] ity o f [facility] 2019-09-22 2019-09-22 Refill Bonilla [facility] 1.2.541.633 [id number] Univers 00:00:00 00:00:00 [facility] 350.1.13.10 ity of [facility] 4.2.[place].2.[place] [id number] [address] 2019-09-11 2019-09-11 Office Negrita [facility] 1.2.468.183 [id number] Univers 14:00:48 14:30:[address] [facility] 350.1.13.10 it y of MEDICINE 4.2.7.2.686 [place] CLINIC - [phone] [address] 2019-09-11 2019-09-11 Outpatient R NEGRITA [facility] [id number] Univers 14:00:00 14:00:00 JAMES ity [facility] 2019-09-11 2019-09-11 Ancillary Malena Medina [facility] 1 .2.840.114 [id number] Univers 11:19:31 13:14:39 Visit Angela Crenshaw PRIMARY 350.1.13.10 ity of CARE 4[place].2.[place] [phone] Pr dical 179 [place] 2019-09-07 2019-09-07 [facility]medici [facility] 1.2.840.114 [id number] Univers 09:40:00 10:00:00 ne Visit Maye PRIMARY 350.1.13.10 i ty of CARE 4.2.7.2.[place] [phone] Pr dical 044 [place] 2019-09-07 2019-09-07 Outpatient [facility] [id number] Univers 09:40:00 09:40:00 [facility] 2019-09-01 2019-09-01 Patient [facility] 1.2.859.292 [id number] Univers 00:00:00 00:00:00 Secure Msg Ramirez PRIMARY 350.1.13.10 ity of C[place] 4.2.[place].2.[place] [id number] Pr dical 044 [place] 2019-08-27 2019-08-27 Ancillary Malena Medina [facility] 1 .2.840.114 [id number] Univers 10:19:34 10:59:34 Visit Angela Crenshaw PRIMARY 350.1.13.10 ity of C[place] 4.2.[place].2.[place] [id number] Pr dical 179 [place] 2019-08-13 2019-08-24 Ancillary Malena Medina [facility] 1 .2.840.114 [id number] Univers 10:19:36 11:06:11 Visit Angela Crenshaw PRIMARY 350.1.13.10 ity of C[place] 4.2.[place].2.[place] [id number] Pr dical 179 [place] 2019-08-19 2019-08-19 Outpatient R CARMEN [facility] [id number] Univers 20:00:00 20:00:00 DAMEON [facility] 2019-08-19 2019-08-19 Frame Feeder Lab, Sleep JENNIFER 1.2.840.114 [id number] Univers 15:36:33 18:06:33 Visit Dameon Morales 350.1.13.10 ity of [place]2.[place] [phone] [facility] [address] 2019-08-19 2019-08-19 Orders Barry Hinton [facility] 1.2.840.114 [id number] Univers 00:00:00 00:00:00 Only S HEALTH 350.1.13.10 it y of [place].2.[place] MEDICINE [phone] Med ical HOANG 044 [place] CLINIC 2019-08-17 2019-08-17 Laboratory Only, Pcp Test [facility] 1.2.840. 114 [id number] Univers 10:01:55 10:16:55 Only Barry Hinton S PRIMARY 350.1.13.10 ity of CARE 4.2.7.2.[place] [id number] Pr dical 366 [place] 2019-08-17 2019-08-17 Outpatient R BARRY HINTON [facility] [id number] Univers 10:00:00 10:00:00 ity of [facility] 2019-07-31 2019-08-14 Office Christian Murillo [facility] 1.2.840.114 [id number] Univers 16:20:55 09:50:47 Visit Barry Hinton S PRIMARY 350.1.13.10 ity of C[place] 4[place].2.[place] [id number] Pr dical 044 [place] 2019-08-13 2019-08-13 Outpatient R [facility] [id number] Univers 15:51:52 23:59:00 JAMES ity of [facility] 2019-08-13 2019-08-13 [facility] 1.2.840.114 [id number] Univers 15:51:00 23:59:00 Encounter James PRIMARY 350.1.13.10 ity of C[place].2.[place].2.[place] [id number] Pr dical 807 [place] 2019-08-13 2019-08-13 Office Kamprasommer, [facility] 1.2.160.047 [id number] Univers 15:47:02 16:36:56 Visit James PRIMARY 350.1.13.10 it y of CARE 4.2.[place].2.[place] [id number] Pr dicmd 044 [place] 2019-08-13 2019-08-13 [facility] [id number] Univers 10:20:00 10:20:00 ANGELA ity of [facility] 2019-08-13 2019-08-13 [facility]phone [facility] 1.2.840.114 [id number] Univers 00:00:00 00:00:00 sa Christian PRIMARY 350.1.13.10 [facility] 4.2.7.2.686 [place] PAVILLION [id number] [address] 2019-08-12 2019-08-12 Outpatient R [facility] [id number] Univers 11:00:00 11:00:00 ity [facility] 2019-08-10 2019-08-10 Office Lydia, UNIVERSIT 1.2.840.114 [id number] Univers 08:55:09 09:32:07 Visit Trish Y 350.1.13.10 it y of NATIONAL 4.2.7.2.686 [place] BANK [phone] [facility] BLDG. [address] [place] 2019-08-10 2019-08-10 Outpatient R LYDIA [facility] [id number] Univers 09:00:00 09:00:00 TRISH ity of [facility] 2019-08-03 2019-08-03 Outpatient R [facility] [id number] Univers 11:20:00 11:20:00 ity [facility] 2019-07-31 2019-07-31 Outpatient R BARRY HINTON [facility] [id number] Univers 16:20:00 16:20:00 ity [facility] 2019-07-30 2019-07-30 Ancillary Malena Medina [facility] 1 .2.840.114 [id number] Univers 13:28:03 14:08:03 Visit Angela Crenshaw PRIMARY 350.1.13.10 ity of C[place] [id number] Pr dicjennifer [address] [place] 2019-07-28 2019-07-28 Telephone [facility] 1.2.194.450 [id number] Univers 00:00:00 00:00:00 Tremaine FAMILY 350.1.13.10 it y of [place] MEDICINE 4.2.7.2.686 [place] CLINIC - [phone] [address] 2019-07-28 2019-07-28 Telephone [facility] 1.2.805.639 [id number] Univers 00:00:00 00:00:00 Tremaine FAMILY 350.1.13.10 it y of [place] MEDICINE 4.2.7.2.686 [place] CLINIC - [id number] [address] 2019-07-22 2019-07-22 Orders Doctor REYES 1.2.840.114 [id number] Univers 00:00:00 00:00:00 Only Unassigned, TOYA 350.1.13.10 ity of [place] [facility] 4.2.7.2.686 [place] [id number] [facility] 00[address] [place] 2019-07-17 2019-07-17 Ancillary Malena Medina [facility] 1 .2.840.114 [id number] Univers 09:58:57 10:49:36 Visit Angela Crenshaw PRIMARY 350.1.13.10 ity of C[place] [phone] Pr darshana [address] [place] 2019-07-17 2019-07-17 Outpatient R FLOWER [facility] [id number] Univers 10:00:00 10:00:00 ANGELA ity of [facility] 2019-07-09 2019-07-09 Office Joseph [facility] 1.2.840.114 [id number] Univers 08:31:06 10:38:28 Visit Rocael sheets 350.1.13.10 ity of NATIONAL 4.2.7.2.686 [place] BANK [phone] [facility] BLDG. [address] 2019-07-09 2019-07-09 Outpatient R MARIELLAPARAM [facility] [id number] Univers 08:45:00 08:45:00 ROCAEL SHEETS ity of [facility] 2019-07-09 2019-07-09 Orders Doctor REYES 1.2.840.114 [id number] Univers 00:00:00 00:00:00 Only Unassigned, TOYA 350.1.13.10 ity of [place] [facility]OSPITAL 4.2.7.2.686 [place] [phone] [facility] [address] 2019-07-08 2019-07-08 Outpatient R [facility] [id number] Univers 16:00:00 16:00:00 ity of [facility] 2019-07-08 2019-07-08 Telemedici Oscar Gibbs [facility]ERS[facility] 1.2.840.1 14 [id number] Univers 08:25:50 08:55:50 ne Visit Kirk Vargas [facility] 350.1.13.10 ity of CLINICS 4[place]2.7.2.[place] [id number] [facility] [address] 2019-07-03 2019-07-03 Frame Feeder Pcp-Lab [facility] 1.2.840.114 [id number] Univers 10:16:04 10:26:04 Visit Diana Patrick 350.1.13.10 ity of C[place]OD[place] [id number] [facility] [address] 2019-07-03 2019-07-03 Outpatient R DARNELL [facility] [id number] Univers 10:20:00 10:20:00 DIANA ity of [facility] 2019-07-03 2019-07-03 [facility] 1.2.840.114 [id number] Univers 00:00:00 00:00:00 Christian santiago FAMILY 350.1.13.10 ity of [place].2.[place] - [id number] [address] 2019-06-29 2019-06-29 Refill [facility] 1.2.840.114 [id number] Univers 00:00:00 00:00:00 sa, Christian PRIMARY 350.1.13.10 ity of [place] CARE 4.2.7.2.686 [place] PAVILLION [id number] Pr dical 0[address] [place] 2019-06-08 2019-06-08 Telephone Oscar Gibbs [facility] 1.2.840.11 [id number] Univers 00:00:00 00:00:00 Y HEALTH 350.1.13.10 i ty of CLINICS 4[place]2.[place].2.[place] [id number] [facility] [address] [place] 2019-06-08 2019-06-08 Refill [facility] 1.2.840.114 [id number] Univers 00:00:00 00:00:00 Tremaine FAMILY 350.1.13.10 it y of [place] MEDICINE 4.2.7.2.686 [place] CLINIC - [phone] [address] 2019-06-01 2019-06-01 Outpatient Ab BANSAL [facility] [id number] Univers 08:45:00 08:45:00 ROCAEL SHEETS [facility] 2019-05-26 2019-05-26 Telephone [facility] 1.2.256.727 [id number] Univers 00:00:00 00:00:00 Tremaine FAMILY 350.1.13.10 it y of [place] MEDICINE 4.2.7.2.686 [place] CLINIC - [id number] [address] 2019-05-22 2019-05-22 Ancillary Malena Medina [facility] 1 .2.840.114 [id number] Univers 09:55:49 10:55:49 Visit Angela Crenshaw PRIMARY 350.1.13.10 ity of C[place] [id number] Pr dical [address] [place] 2019-05-22 2019-05-22 Outpatient Ab CRENSHAW [facility] [id number] Univers 10:20:00 10:20:00 ANGELA aranda [facility] 2019-05-20 2019-05-21 Telemedici Oscar Gibbs [facility]ERS[facility] 1..840.1 14 [id number] Univers 08:04:11 10:04:03 ne Visit Kirk Vargas [facility] 350.1.13.10 ity of CLIN[place] 4[place] [phone] [address] 2019-05-20 2019-05-20 Outpatient R SAM [facility] [id number] Univers 15:00:00 15:00:00 KIRK ity [facility] 2019-05-19 2019-05-20 Telemedici Tremaine Santillan [facility] 1. 2.840.114 [id number] Univers 08:48:34 14:43:38 ne Visit Dona Zelaya FAMILY 350.1.13.10 ity of MEDICINE 4.2.7.2.686 [place] CLINIC - [id number] [address] 2019-05-20 2019-05-20 Telephone Tyrell [facility] 1.2.366.113 [id number] Univers 00:00:00 00:00:00 Tremaine FAMILY 350.1.13.10 it y of [facility] MEDICINE 4.2.7.2.686 [place] CLINIC - [id number] [address] 2019-05-19 2019-05-19 Outpatient R [facility] [id number] Univers 10:10:00 10:10:00 ity of [facility] 2019-05-15 2019-05-15 Refill Doctor [facility] 1.2.840.114 [id number] Univers 00:00:00 00:00:00 Unassigned, FAMILY 350.1.13.10 ity of [place] MEDICINE 4.2.7.2.686 [place] CLINIC - [id number] [address] 2019-04-20 2019-05-09 Office Lisandra Escoto [facility] 1.2.840.114 [id number] Univers 08:49:15 16:56:34 Visit Jose Armando Goldstein FAMILY 350.1.13.10 ity of MEDICINE 4.2.7.2.686 [place] CLINIC - [id number] [address] 2019-05-07 2019-05-07 Orders Doctor REYES 1.2.840.114 [id number] Univers 00:00:00 00:00:00 Only Unassigned, TOYA 350.1.13.10 ity of [place] [facility]OSPITAL 4.2.7.2.686 [place] as [id number] [address] 2019-05-07 2019-05-07 Refill Nathalie [facility] 1.2.840.114 [id number] Univers 00:00:00 00:00:00 Dona Robertson FAMILY 350.1.13.10 i ty of MEDICINE 4.2.7.2.686 [place] CLINIC - [id number] [address] 2019-05-05 2019-05-05 Outpatient Ab VACA [facility] [id number] Univers 09:00:00 09:00:00 LEXI rohan [facility] 2019-05-05 2019-05-05 Refill Jevon [facility] 1.2.840.114 [id number] Univers 00:00:00 00:00:00 Lisandra FAMILY 350.1.13.10 it y of MEDICINE 4.2.7.2.686 [place] CLINIC - [id number] [address] 2019-05-03 2019-05-03 Refill [facility] 1.2.840.114 [id number] Univers 00:00:00 00:00:00 Unassigned, FAMILY 350.1.13.10 ity of [place] MEDICINE 4.2.7.2.686 [place] CLINIC - [id number] [address] 2019-04-28 2019-04-28 Outpatient Ab VACA [facility] [id number] Univers 09:00:00 09:00:00 LEXI aranda [facility] 2019-04-28 2019-04-28 Orders Doctor PULLIAM 1.2.840.114 [id number] Univers 00:00:00 00:00:00 Only Unassigned, TOYA 350.1.13.10 ity of [place] [facility]OS[facility] 4.2.7.2.686 [place] [id number] [address] 2019-04-27 2019-04-27 Orders Doctor REYES 1.2.840.114 [id number] Univers 00:00:00 00:00:00 Only Unassigned, TOYA 350.1.13.10 ity of [place] [facility]OSPITAL 4.2.7.2.686 [place] as [id number] [facility] 00[address] [place] 2019-04-22 2019-04-23 Office Lisandra Escoto [facility] 1.2.840.114 [id number] Univers 08:46:25 13:26:04 Visit Ramon Madrigal FAMILY 350.1.13.10 ity of MEDICINE 4.2.7.2.686 [place] CLINIC - [id number] [address] 2019-04-22 2019-04-22 [facility] [id number] Univers 08:50:00 14:36:41 RAMON ity [facility] 2019-04-22 2019-04-22 Telephone [facility] 1..840.114 [id number] Univers 00:00:00 00:00:00 Pati RAMÍREZ 350.1.13.10 i ty of MEDICINE 4.2.7.2.686 [place] CLINIC - [phone] [address] 2019-04-20 2019-04-20 Outpatient [facility] [id number] Univers 10:04:58 23:59:00 JOSE ARMANDO ity [facility] 2019-04-20 2019-04-20 [facility] 1.2.840.114 [id number] Univers 10:04:00 23:59:00 Encounter [facility] 350.1.13.10 ity of Pediatric 4.2.7.2.686 [facility] [phone] [facility] [address] [place] 2019-04-20 2019-04-20 Outpatient Ab [facility] [id number] Univers 08:50:00 10:43:29 JOSE ARMANDO ity [facility] 2019-04-20 2019-04-20 Refill [facility] 1.2.840.114 [id number] Univers 00:00:00 00:00:00 Christian santiago 350.1.13.10 ity of [place] [facility] - [phone] [address] 2019-04-15 2019-04-15 Telephone [facility] 1.2.656.781 [id number] Univers 00:00:00 00:00:00 Tremaine FAMILY 350.1.13.10 it y of [place] MEDICINE 4.2.7.2.686 [place] CLINIC - [phone] [address] 2019-04-14 2019-04-14 Orders Doctor PULLIAM 1.2.840.114 [id number] Univers 00:00:00 00:00:00 Only Unassigned, TOYA 350.1.13.10 ity of [place] [facility] 4.2.7.2.686 [place] [id number] [facility] [address] [place] 2019-04-08 2019-04-08 Office CARLOS FreemanIT 1.2.840.114 [id number] Univers 08:43:26 14:05:14 Visit Trish Y 350.1.13.10 it y of NATIONAL 4.2.7.2.686 [place] BANK [phone] [facility] BLDG. [address] [place] 2019-04-06 2019-04-06 [facility] 1.2.840.114 [id number] Univers 00:00:00 00:00:00 saChristian FAMILY 350.1.13.10 ity of [place] - [phone] [address] 2019-04-04 2019-04-04 Telephone [facility] 1.2.033.021 [id number] Univers 00:00:00 00:00:00 Tremaine FAMILY 350.1.13.10 it y of [place] MEDICINE 4.2.7.2.686 [place] CLINIC - [id number] [address] 2019-04-02 2019-04-02 Office Joseph [facility] 1.2.840.114 [id number] Univers 08:49:20 09:04:20 Visit Rocael sheets Y 350.1.13.10 ity of NATIONAL 4.2.7.2.686 [place] BANK [phone] [facility] [address] [place] 2019-04-02 2019-04-02 Orders Doctor PULLIAM 1.2.840.114 [id number] Univers 00:00:00 00:00:00 Only Unassigned, TOYA 350.1.13.10 ity of [place] [facility] 4.2.7.2.686 [place] as [id number] [facility] [address] [place] 2019-03-30 2019-03-30 Refill Doctor UNIVERSIT 1.2.953.512 [id number] Univers 00:00:00 00:00:00 Unassigned, Y HEALTH 350.1.13.10 ity of [place] CLINICS 4.2.7.2.[place] 226.3477472 [facility] [address] [place] 2019-03-30 2019-03-30 Orders Doctor REYES 1.2.840.114 [id number] Univers 00:00:00 00:00:00 Only Unassigned, TOYA 350.1.13.10 ity of [place] [facility] 4.2.7.2.686 [place] [phone] [address] 2019-03-25 2019-03-25 Telephone Kaya Rodriguez UNIVERS 1.2.840.11 [id number] Univers 00:00:00 00:00:00 Y HEALTH 350.1.13.10 i ty of [place] [phone] [facility] [address] [place] 2019-03-24 2019-03-24 Office CARLOS Crystal [id number] Univers 15:52:23 16:39:[address] [facility] Y HEALTH 350.1.13.10 ity [place].2.[place] [phone] [facility] [address] 2019-03-24 2019-03-24 Orders Doctor REYES 1.2.840.114 [id number] Univers 00:00:00 00:00:00 Only Unassigned, TOYA 350.1.13.10 ity of [place] [facility] 4.2.7.2.686 [place] [phone] [address] 2019-03-21 2019-03-21 Telephone Santillan, [facility] [id number] Univers 00:00:00 00:00:00 Tremaine FAMILY 350.1.13.10 it y of [place] MEDICINE 4.2.7.2.686 [place] CLINIC - [phone] [address] 2019-03-20 2019-03-20 Office Tremaine Santillanjo-ann [facility] 1.2.8 40.114 [id number] Univers 12:52:23 14:38:10 Visit Pati Perla FAMILY 350.1.13.10 ity of MEDICINE 4.2.7.2.686 [place] CLINIC - [phone] [address] 2019-03-20 2019-03-20 Orders Doctor REYES 1.2.840.114 [id number] Univers 00:00:00 00:00:00 Only Unassigned, TOYA 350.1.13.10 ity of [place] [facility] 4.2.7.2.686 [place] [phone] [address] 2019-03-18 2019-03-18 Office Oscar Gibbs [facility] 1.2.840.114 [id number] Univers 14:24:32 16:34:40 Visit Jayne Bravo [facility] 350.1.13.10 ity [place] [phone] [address] 2019-03-18 2019-03-18 Orders Doctor REYES 1.2.840.114 [id number] Univers 00:00:00 00:00:00 Only Unassigned, TOYA 350.1.13.10 ity of [place] [facility] 4.2.7.2.686 [place] [phone] [address] 2019-03-17 2019-03-17 Orders Doctor REYES 1.2.840.114 [id number] Univers 00:00:00 00:00:00 Only Unassigned, TOYA 350.1.13.10 ity of [place] [facility] 4.2.7.2.686 [place] [phone] [address] 2019-03-16 2019-03-16 Telephone [facility] 1.2.840.114 [id number] Univers 00:00:00 00:00:00 sa Christian FAMILY 350.1.13.10 ity [place] - [phone] [address] 2019-03-16 2019-03-16 Telephone Christian-Nwo [facility] 1.2.840.114 [id number] Univers 00:00:00 00:00:00 Christian santiago 350.1.13.10 it[place] - [phone] [address] 2019-03-13 2019-03-13 Orders Doctor REYES 1.2.840.114 [id number] Univers 00:00:00 00:00:00 Only Unassigned, TOYA 350.1.13.10 ity of [place] [facility] 4.2.7.2.686 [place] as [phone] [facility] [address] [place] 2019-03-11 2019-03-11 Abstract Kaya Rodriguez UNIVERSIT 1.2.840.114 [id number] Univers 00:00:00 00:00:00 Y HEALTH 350.1.13.10 i [place] [id number] [facility] [address] 2019-02-16 2019-02-16 Emergency X RAMONA [facility] ERT [id number] Univers 18:49:33 22:11:00 MINA [facility] 2019-02-12 2019-02-14 Outpatient X NATHALIE [facility] [id number] Univers 12:45:58 17:35:00 DONA [facility] 2019-02-11 2019-02-11 Office Oscar Gibbs UNIVERSIT 1.2.840.114 [id number] Univers 14:49:27 16:34:54 Visit Jayne Bravo Y HEALTH 350.1.13.10 [place] [id number] [facility] [address] 2019-02-10 2019-02-10 Orders Doctor PULLIAM 1.2.840.114 [id number] Univers 00:00:00 00:00:00 Only Unassigned, TOYA 350.1.13.10 ity of [place] [facility] 4.2.7.2.686 [place] [phone] [facility] [address] [place] 2019-01-16 2019-01-17 Observatio [facility] [id number] Memoria 20:14:12 03:33:00 n ab Rolando 07 l [facility] 2019-01-16 2019-01-17 Observatio [facility]Flavo [facility] [id number] [id number] Memoria 20:14:12 03:33:00 n ab Marshall 07 l [facility] 2019-01-16 2019-01-16 Outpatient Christian MHSE MHSE [id number] 14:14:12 21:33:00 Jake Quintanilla [facility] 2019-01-16 2019-01-16 Outpatient E MHSE MED [id number] 17:45:00 17:45:00 [facility] 2018-11-18 2018-11-18 Reggie Pena [facility] 1.2.840.114 [id number] Univers 00:00:00 00:00:00 Jordi FAMILY 350.1.13.10 it y of [facility] MEDICINE 4.2.7.2.686 [place] CLINIC - [phone] [address] 2018-11-13 2018-11-13 [facility], [facility] [place], [place] [address] [facility] 1 .2.840.114 [id number] Univers 07:50:27 08:05:27 Visit Kirk Vargas 350.1.13.10 ity of MEDICINE 4.2.7.2.686 [place] - [phone] [address] 2018-11-12 2018-11-12 [facility] UNIVERSIT 1.2.840.114 [id number] Univers 14:51:21 14:59:40 Visit Kirk Vargas HEALTH 350.1.13.10 it[id number] [address] 2018-11-12 2018-11-12 Office Kaya Rodriguez UNIVERSIT 1.2.840.114 [id number] Univers 13:13:23 14:45:33 Visit Kirk Vargas HEALTH 350.1.13.10 ity [place] [id number] [facility] [address] 2018-11-11 2018-11-11 Office [employer], [facility] 1.2.840.114 [id number] Univers 14:23:35 14:53:35 Visit Benny Y HEALTH 350.1.13.10 i ty [place] [id number] [facility] [address] 2018-11-06 2018-11-06 [facility], [facility] [address] [facility] 1 .2.840.114 [id number] Univers 12:58:42 13:13:42 Visit Jayne Bravo 350.1.13.10 ity of MEDICINE 4.2.7.2.686 [place] - [phone] [address] 2018-11-05 2018-11-05 [facility] 1.2.281.753 [id number] Univers 00:00:00 00:00:00 Pulmonary Y HEALTH 350.1.13.10 it[place] [id number] [facility] [address] 2018-11-05 2018-11-05 Refill Mikki [facility] 1.2.213.246 [id number] Univers 00:00:00 00:00:00 Conner P Y HEALTH 350.1.13.10 i ty [place] [id number] [facility] [address] 2018-10-30 2018-10-30 Telephone Lawrence [facility] 1.2.840.114 [id number] Univers 00:00:00 00:00:00 Jayne Busch Y HEALTH 350.1.13.10 ity of [place] [phone] [facility] [address] 2018-10-28 2018-10-28 Refindy Zelaya [facility] 1.2.840.114 [id number] Univers 00:00:00 00:00:00 Dona Robertson FAMILY 350.1.13.10 i ty of MEDICINE 4.2.7.2.686 [place] - [phone] [address] 2018-10-22 2018-10-22 Letter Lawrence UNIVERSIT 1.2.009.194 [id number] Univers 00:00:00 00:00:00 (Out) Jayne Med.ly 350.1.13.10 ity [place] [phone] [address] [address] 2018-10-22 2018-10-22 Patient Lawrence, UNIVERSIT 1.2.791.742 [id number] Univers 00:00:00 00:00:00 Secure Msg [place]lane 350.1.13.10 ity of [place] [phone] [place] [address] [address] 2016-02-03 2016-02-03 Outpatient MHIE MHIE [id number] Memoria 15:15:00 15:15:00 10 soraya Marshall 2016-02-03 2016-02-03 Outpatient MHIE MHIE [id number] Memoria 15:15:00 15:15:00 10 soraya Marshall 2015-10-11 2015-10-11 Outpatient MHIE MHIE [id number] Memoria 15:15:00 15:15:00 09 soraya Marshall 2015-10-11 2015-10-11 Outpatient MHIE MHIE [id number] Memoria 15:15:00 15:15:00 09 soraya Marshall 2015-10-07 2015-10-07 Outpatient MHIE MHIE [id number] Memoria 15:30:00 15:30:00 06 soraya Marshall 2015-10-07 2015-10-07 Outpatient MHIE MHIE [id number] Memoria 15:30:00 15:30:00 06 soraya Marshall 2015-09-28 2015-09-29 [facility] [id number] [id number] Memoria 12:48:00 04:59:00 ab Marshall 09 [facility] 2015-09-28 2015-09-29 Outpatient [facility] [id number] Memoria 12:48:00 04:59:00 ab Marshall 09 [facility] 2015-09-28 2015-09-28 Outpatient ROSITA MorenoSE MHSE [id number] 07:48:00 23:59:00 Pati Wisdom 2015-09-21 2015-09-21 Bedded [facility] [id number] Memoria 13:30:00 16:32:00 Outpatient r Rolando 06 [facility] 2015-09-21 2015-09-21 Bedded [facility] [id number] Memoria 13:30:00 16:32:00 Outpatient r Hudson 06 [facility] 2015-09-21 2015-09-21 Outpatient Lettyya MHSE MHSE [id number] 08:30:00 11:32:00 yJose Angel Dago 2015-09-13 2015-09-13 Outpatient MHIE MHIE [id number] Memoria 09:00:00 09:00:00 08 soraya Hudson 2015-09-13 2015-09-13 Outpatient MHIE MHIE [id number] Memoria 09:00:00 09:00:00 08 l Hudson 2015-08-09 2015-08-09 Outpatient MHIE MHIE [id number] Memoria 10:15:00 10:15:00 07 l Hudson 2015-08-09 2015-08-09 Outpatient MHIE MHIE [id number] Memoria 10:15:00 10:15:00 07 l [place] 2015-07-20 2015-07-21 Outpatient [facility] [id number] [id number] Memoria 12:02:00 04:59:00 r Rolando 03 [facility] 2015-07-20 2015-07-21 Outpatient [facility] [id number] [id number] Memoria 12:02:00 04:59:00 r Rolando 03 [facility] 2015-07-20 2015-07-20 Outpatient ROSITA VallecilloSE MHSE [id number] 07:02:00 23:59:00 Gideon E 03 2015-06-06 2015-06-07 Outpatient [facility] [id number] [id number] Memoria 21:10:00 04:59:00 r Rolando 95 [facility] 2015-06-06 2015-06-07 Outpatient [facility] [id number] [id number] Memoria 21:10:00 04:59:00 r Rolando 95 [facility] 2015-06-06 2015-06-06 Outpatient ANTHONY Moreno MHSE [id number] 16:10:00 23:59:00 Pati Wisdom 2015-06-03 2015-06-03 Outpatient MHIE MHIE [id number] Memoria 15:15:00 15:15:00 05 soraya Marshall 2015-06-03 2015-06-03 Outpatient MHIE MHIE [id number] Memoria 15:15:00 15:15:00 05 soraya Marshall 2015-02-15 2015-02-15 Outpatient MHIE MHIE [id number] Memoria 15:15:00 15:15:00 04 soraya Marshall 2015-02-15 2015-02-15 Outpatient MHIE MHIE [id number] Memoria 15:15:00 15:15:00 04 soraya Marshall 2015-01-20 2015-01-20 Outpatient MHIE MHIE [id number] Memoria 14:30:00 14:30:00 01 soraya Marshall 2015-01-20 2015-01-20 Outpatient MHIE MHIE [id number] Memoria 14:30:00 14:30:00 01 soraya Marshall 2014-12-07 2014-12-07 Outpatient MHIE MHIE [id number] Memoria 14:30:00 14:30:00 02 soraya Marshall 2014-12-07 2014-12-07 Outpatient MHIE MHIE [id number] Memoria 14:30:00 14:30:00 02 soraya Marshall 2014-10-26 2014-11-25 OP Therapy nullFlavo [facility] [id number] Memoria 20:40:00 04:59:00 Patients r [place] 02 [facility] 2014-10-26 2014-11-25 OP Therapy nullFlavo SMR [id number] Memoria 20:40:00 04:59:00 Patients r [place] 02 l [facility] 2014-10-26 2014-11-24 Outpatient Josh, 2.16.840. 2.16.840.1. [id number] 15:40:00 23:59:00 Pati [id number]. [id number] 02 Alyx 3.615.52 5.52 2014-11-23 2014-11-24 Outpt Diag nullFlavo [facility] [id number] Memoria 17:39:00 04:59:00 Services r Outpatient 00 soraya Piña 2014-11-23 2014-11-24 Outpt Diag nullFlavo [facility] [id number] Memoria 17:39:00 04:59:00 [facility] 2014-11-23 2014-11-23 Outpatient SHAHID Buckley [facility] [id number] 12:39:00 23:59:00 Brennan 00 2014-11-05 2014-11-05 Outpatient MHIE IE [id number] Memoria 08:00:00 08:00:00 03 soraya Hudson 2014-11-05 2014-11-05 Outpatient MHIE MHIE [id number] Memoria 08:00:00 08:00:00 03 [facility] 2014-09-23 2014-10-23 OP Therapy nullFlavo [facility] [id number] Memoria 19:45:00 04:59:00 Patients r [facility] 01 [facility] 2014-09-23 2014-10-23 OP Therapy nullFlavo [facility] [id number] Memoria 19:45:00 04:59:00 Patients r [facility] 01 [facility] 2014-09-23 2014-10-22 Outpatient Josh, 2.16.840. 2.16.840.1. [id number] 14:45:00 23:59:00 Pati [id number]. [id number] 01 Alyx 3.615.52 5.52 2014-09-17 2014-09-17 Outpatient IE IE [id number] Memoria 09:30:00 09:30:00 00 soraya Marshall 2014-09-17 2014-09-17 Outpatient IE IE [id number] Memoria 09:30:00 09:30:00 00 soraya Hudson 2013-12-08 2013-12-09 Outpatient nullFlavo [facility] [id number] Memoria 17:41:00 04:59:00 r Rolando 00 [facility] 2013-12-08 2013-12-09 Outpatient [facility]Flavo [facility] [id number] Memoria 17:41:00 04:59:00 r Rolando 00 [facility] 2013-12-08 2013-12-08 Outpatient Josh, 2.16.840. 2.16.840.1. [id number] 12:41:00 23:59:00 Pati [id number]. [id number] 00 Alyx 3.615.0.1 5.0.377 66 2943-10-01 2013-12-03 Outpatient Rose Mary [facility] [id number] Memoria 18:35:00 04:59:00 r Hudson 74 l [facility] 2013-12-02 2013-12-03 [facility] [id number] [id number] Memoria 18:35:00 04:59:00 r Rolando 74 l [facility] 2013-12-02 2013-12-02 Outpatient Josh, 2.16.840. 2.16.840.1. [id number] 13:35:00 23:59:00 Pati [id number]. [id number] 74 Alyx 3.615.0.1 5.0.634 22 2613-12-29 2012-03-01 Outpatient nullFlavo [id number] Memoria 21:00:00 23:59:00 r [facility] 03 soraya HannahHudson 2012-03-01 2012-03-01 Outpatient nullFlavo [id number] Memoria 21:00:00 23:59:00 r [facility] 03 soraya Marshall 2011-04-05 2011-04-05 Outpatient nullFlavo [id number] Memoria 17:52:00 23:59:00 r [facility] 02 soraya Marshall 2011-04-05 2011-04-05 Outpatient nullFlavo [id number] Memoria 17:52:00 23:59:00 r [facility] 02 soraya HannahRolando 2011-03-01 2011-03-01 Outpatient nullFlavo [id number] Memoria 15:52:00 15:52:00 r [facility] 63 soraya HannahHudson 2011-03-01 2011-03-01 Outpatient nullFlavo [id number] Memoria 15:52:00 15:52:00 r Sergei 63 soraya Marshall Results Test Description Test Time Test Comments Results Result Comments Source POCT GLUCOSE (AUTOMATED) 2022-10-23 22:00:03 Test Item Value Reference Range Interpretation Comme nts POCT GLU (test code = 1135973375) 198 mg/dL 70-110 H Lab Interpretation (test code = 57303-7) Abnormal [facility] GLUCOSE (AUTOMATED)2022-10-23 17:23:30 Test Item Value Reference Range Interpretation Comments POCT GLU (test code = 0032115099) 243 mg/dL 70-110 H Lab Interpretation (test code = Abnormal 49931-1) [facility] GLUCOSE (AUTOMATED)2022-10-23 13:09:46 Test Item Value Reference Range Interpretation Comments POCT GLU (test code = 3523722010) 104 mg/dL 70-110 Lab Interpretation (test code = Normal 13408-0) [facility] GLUCOSE (AUTOMATED)2022-10-23 02:27:00 Test Item Value Reference Range Interpretation Comments POCT GLU (test code = 1279798031) 206 mg/dL 70-110 H Lab Interpretation (test code = Abnormal 28129-6) [facility] GLUCOSE (AUTOMATED)2022-10-22 21:47:10 Test Item Value Reference Range Interpretation Comments POCT GLU (test code = 5389588526) 207 mg/dL 70-110 H Lab Interpretation (test code = Abnormal 21580-5) [facility] GLUCOSE (AUTOMATED)2022-10-22 17:23:03 Test Item Value Reference Range Interpretation Comments POCT GLU (test code = 1646983113) 225 mg/dL 70-110 H Lab Interpretation (test code = Abnormal 03412-9) [facility] GLUCOSE (AUTOMATED)2022-10-22 13:58:00 Test Item Value Reference Range Interpretation Comments POCT GLU (test code = 0086864091) 146 mg/dL 70-110 H Lab Interpretation (test code = Abnormal 98805-0) [facility] GLUCOSE (AUTOMATED)2022-10-22 01:31:33 Test Item Value Reference Range Interpretation Comments POCT GLU (test code = 1251732608) 208 mg/dL 70-110 H Lab Interpretation (test code = Abnormal 99591-9) [facility] GLUCOSE (AUTOMATED)2022-10-21 22:13:38 Test Item Value Reference Range Interpretation Comments POCT GLU (test code = 6177134791) 109 mg/dL 70-110 Lab Interpretation (test code = Normal 80563-0) [facility] GLUCOSE (AUTOMATED)2022-10-21 17:58:28 Test Item Value Reference Range Interpretation Comments POCT GLU (test code = 5523369890) 170 mg/dL 70-110 H Lab Interpretation (test code = Abnormal 38501-4) [facility] GLUCOSE (AUTOMATED)2022-10-21 11:02:22 Test Item Value Reference Range Interpretation Comments POCT GLU (test code = 4766388561) 103 mg/dL 70-110 Lab Interpretation (test code = Normal 43283-6) [facility] GLUCOSE (AUTOMATED)2022-10-21 10:36:55 Test Item Value Reference Range Interpretation Comments POCT GLU (test code = 7492933372) 106 mg/dL 70-110 Lab Interpretation (test code = Normal 29418-2) [facility] GLUCOSE (AUTOMATED)2022-10-21 04:34:49 Test Item Value Reference Range Interpretation Comments POCT GLU (test code = 1001034141) 114 mg/dL 70-110 H Lab Interpretation (test code = Abnormal 89398-2) [facility] GLUCOSE (AUTOMATED)2022-10-20 22:15:58 Test Item Value Reference Range Interpretation Comments POCT GLU (test code = 2977007274) 160 mg/dL 70-110 H Lab Interpretation (test code = Abnormal 24724-6) [facility] Whole [id number] 21:53:23 Test Item Value Reference Range Interpretation Comments LACTIC ACID (test code = 1.26 mmol/L 0.50-2.20 0106702446) Lab Interpretation (test code = Normal 02609-6) [facility] AB[facility] + LACTIC [id number] 18:35:26 Test Item Value Reference Range Interpretation Comments PH (test code = 2) 7.34 7.35-7.45 L PCO2 (test code = 47 See_Comment H [Automate d 3163398786) message] The sy stem which generated this result transmitted reference range : 35 - 45 mmHg. The reference range was not used to interpret this result as normal/abnormal . PO2 (test code = 64 See_Comment L [Automated 5326013343) message] The sy stem which generated this result transmitted reference range : 80 - 100 mmHg. The reference range was not used to interpret this result as normal/abnormal . HCO3 (test code = 25 See_Comment [Automate d 2896685584) message] The sy stem which generated this result transmitted reference range : 22 - 26 mEq/L. The reference range was not used to interpret this result as normal/abnormal . BE (test code = -1.0 See_Comment [Automated 5770951787) message] The sy stem which generated this result transmitted reference range : -3.0 - 3.0 mEq/ L. The reference r carolynn was not used to interpret this result as normal/abnormal . LACTIC ACID (test code 2.46 mmol/L 0.50-2.20 H = 1683069760) Lab Interpretation Abnormal (test code = 40739-5) [facility] GLUCOSE (AUTOMATED)2022-10-20 17:00:47 Test Item Value Reference Range Interpretation Comments POCT GLU (test code = 4954282657) 102 mg/dL 70-110 Lab Interpretation (test code = Normal 26856-7) [facility] GLUCOSE (AUTOMATED)2022-10-20 11:11:09 Test Item Value Reference Range Interpretation Comments POCT GLU (test code = 1081914008) 105 mg/dL 70-110 Lab Interpretation (test code = Normal 74862-0) [facility] GLUCOSE (AUTOMATED)2022-10-20 04:56:18 Test Item Value Reference Range Interpretation Comments POCT GLU (test code = 1514239537) 143 mg/dL 70-110 H Lab Interpretation (test code = Abnormal 78383-6) [facility] GLUCOSE (AUTOMATED)2022-10-19 23:09:26 Test Item Value Reference Range Interpretation Comments POCT GLU (test code = 1528072754) 153 mg/dL 70-110 H Lab Interpretation (test code = Abnormal 93131-5) [facility] HospitalTROPONIN [id number] 21:55:38 Test Item Value Reference Range Interpretation Comments TROPONIN I (test code = 0.073 ng/mL <=0.034 H 7540148271) TOÑA (test code = TOÑA) Reference (Normal) [...] biotin. Lab Interpretation Abnormal (test code = 02908-5) [facility] (AUTOMATED)2022-10-19 18:04:29 Test Item Value Reference Range Interpretation Comments POCT GLU (test code = 1631748746) 197 mg/dL 70-110 H Lab Interpretation (test code = Abnormal 35217-4) [facility] HospitalProthrombin Time / [id number] 17:42:25 Test Item Value Reference Range Interpretation [...] tions. Lab Interpretation (test Abnormal code = 50990-8) [facility] Panel 20 + Lactic [id number] 16:22:44 Test Item Value Reference Range Interpretation Comments PH (test code = 2) 7.33 7.35-7.45 L PCO2 (test code = 51 See_Comment H [Automate d 2015806439) message] The sy stem which generated this result transmitted reference range : 35 - 45 mmHg. The reference range was not used to interpret this result as normal/abnormal . PO2 (test code = 123 See_Comment H [Automated 4633131103) message] The sy stem which generated this result transmitted reference range : 80 - 100 mmHg. The reference range was not used to interpret this result as normal/abnormal . HCO3 (test code = 27 See_Comment H [Automate d 9266716899) message] The sy stem which generated this result transmitted reference range : 22 - 26 mEq/L. The reference range was not used to interpret this result as normal/abnormal . BE (test code = 0.1 See_Comment [Automated 1933686907) message] The sy stem which generated this result transmitted reference range : -3.0 - 3.0 mEq/ L. The reference r carolynn was not used to interpret this result as normal/abnormal . THB (test code = 11.4 g/dL 13.5-18.0 L 2407150850) %O2HB (test code = 97.2 % 94.0-99.0 0753642848) %COHB ART (test code = 0.3 % 0.0-1.5 1714185462) %METHB ART (test code = 0.5 % 0.4-1.5 2268338697) VOL%O2 ART (test code = 15.8 % 15.0-23.0 4384522427) NA (test code = 141 mmol/L 135-145 0028431199) K+ (test code = 4.5 mmol/L 3.5-5.0 9676237623) AC CA IONZ (test code = 5.00 mg/dL 4.50-5.30 4565692712) GLUCOSE (test code = 192 mg/dL 70-110 H 7421517439) LACTIC ACID (test code 1.01 mmol/L 0.50-2.20 = 6812363145) Lab Interpretation Abnormal (test code = 69989-3) [id number] 16:05:04 Test Item Value Reference Range Interpretation Comments TROPONIN I (test code = 0.087 ng/mL <=0.034 H 6173810414) TOÑA (test code = TOÑA) Reference (Normal) [...] biotin. Lab Interpretation Abnormal (test code = 84379-1) [facility] 15[facility]55:20 Test Item Value Reference Range Interpretation Comments MAGNESIUM (test code = 7845349270) 2.9 mg/dL 1.7-2.4 H Lab Interpretation (test code = Abnormal 39975-3) [facility]OS[facility]ORUS2023-08-18 15:55:20 Test Item Value Reference Range Interpretation Comments PHOSPHORUS (test code = 8047343001) 3.4 mg/dL 2.5-5.0 Lab Interpretation (test code = Normal 65072-2) [facility] GLUCOSE (AUTOMATED)2022-10-19 14:33:39 Test Item Value Reference Range Interpretation Comments POCT GLU (test code = 9736048402) 196 mg/dL 70-110 H Lab Interpretation (test code = Abnormal 90020-8) [facility] GLUCOSE (AUTOMATED)2022-10-09 22:29:51 Test Item Value Reference Range Interpretation Comments POCT GLU (test code = 7451321769) 265 mg/dL 70-110 H Lab Interpretation (test code = Abnormal 05090-6) [facility] GLUCOSE (AUTOMATED)2022-10-09 21:51:44 Test Item Value Reference Range Interpretation Comments POCT GLU (test code = 6955532054) 241 mg/dL 70-110 H Lab Interpretation (test code = Abnormal 46461-2) [facility] GLUCOSE (AUTOMATED)2022-10-09 16:41:51 Test Item Value Reference Range Interpretation Comments POCT GLU (test code = 2540216830) 212 mg/dL 70-110 H Lab Interpretation (test code = Abnormal 66991-0) [facility] GLUCOSE (AUTOMATED)2022-10-09 13:19:19 Test Item Value Reference Range Interpretation Comments POCT GLU (test code = 1909599856) 153 mg/dL 70-110 H Lab Interpretation (test code = Abnormal 67904-3) [facility] GLUCOSE (AUTOMATED)2022-10-09 02:05:16 Test Item Value Reference Range Interpretation Comments POCT GLU (test code = 5371017477) 165 mg/dL 70-110 H Lab Interpretation (test code = Abnormal 40102-5) [facility] HospitalGlycosylated Hemoglobin (A1C)2022-10-08 22:19:13 Test Item Value Reference Range Interpretation Comments HGB A1C (test code = 6.0 % 4.0-5.7 H 4548-4) TOÑA (test code = TOÑA) Reference RangesNormal: <5.7%Prediabetes: 5.7 - 6.4%Diabetes: > 6.5% Lab Interpretation (test Abnormal code = 44863-1) [facility] GLUCOSE (AUTOMATED)2022-10-08 21:55:20 Test Item Value Reference Range Interpretation Comments POCT GLU (test code = 7564415939) 95 mg/dL 70-110 Lab Interpretation (test code = Normal 98546-5) [facility] GLUCOSE (AUTOMATED)2022-10-08 20:05:51 Test Item Value Reference Range Interpretation Comments POCT GLU (test code = 3796853483) 126 mg/dL 70-110 H Lab Interpretation (test code = Abnormal 77434-8) [facility] HospitalN-TERMINAL [id number] 13:47:23 Test Item Value Reference Range Interpretation Comments NT-proBNP (test code = 1080 pg/mL <=125 H 68864-6) TOÑA (test code = TOÑA) Positive: Heart Failure Likely Lab Interpretation (test Abnormal code = 51633-3) [facility]MAGNESIUM2023-08-07 11:34:36 Test Item Value Reference Range Interpretation Comments MAGNESIUM (test code = 0107356598) 2.3 mg/dL 1.7-2.4 Lab Interpretation (test code = Normal 68174-2) [facility] METABOLIC PANEL (NA, K, CL, CO2, GLUCOSE, BUN, CREATININE, CA)2022-10-08 11:34:15 Test Item Value Reference Range Interpretation Comments NA (test code = 138 mmol/L 135-145 1891711941) K (test code = 4.1 mmol/L 3.5-5.0 2118343014) CL (test code = 96 mmol/L 98-108 L 0655986730) CO2 TOTAL (test code = 38 mmol/L 23-31 H 8215419847) AGAP (test code = 4 2-16 7305367199) BUN (test code = 54 mg/dL 7-23 H 3146283672) GLUCOSE (test code = 118 mg/dL 70-110 H 7877582736) CREATININE (test code = 2.96 mg/dL 0.60-1.25 H 9427026351) CALCIUM (test code = 8.9 mg/dL 8.6-10.6 9953361704) eGFR (test code = 21.1 mL/min/1.73m2 5672012672) TOÑA (test code = TOÑA) Association of [...] tests). Lab Interpretation Abnormal (test code = 84347-1) [facility] WITH [id number] 11:32:39 Test Item Value Reference Range Interpretation Comments WBC (test code = 7.26 See_Comment [Automated 4107-2) message] The sy stem which generated this [...] (test code = 55.5 fL 38.5-51.6 H 74701-5) RDW-CV (test code = 14.7 % 12.1-15.4 788-0) PLT (test code = 172 See_Comment [Automated 777-3) message] The sy stem which generated this result transmitted reference range : 150 - 328 10*3/ ?L. The reference r carolynn was not used to interpret this result as normal/abnormal . MPV (test code = 10.7 fL 9.8-13.0 66768-4) NRBC/100 WBC (test 0.0 See_Comment [Automat ed code = 9924157196) message] The system which generated this result transmitted reference range : 0.0 - 10.0 /100 WBCs. The refer ence range was not u sed to interpret th is result as normal/abnormal . NRBC x10^3 (test code See_Comment [Auto mated = 0634743785) message] The s ystem which generated this result transmitted reference range : 10*3/?L. The reference range was not used to interpret this result as normal/abnormal . GRAN MAT (NEUT) % 63.8 % (test code = 770-8) IMM GRAN % (test code 0.40 % = 6997824398) LYMPH % (test code = 25.1 % 736-9) MONO % (test code = 8.5 % 5905-5) EOS % (test code = 1.5 % 713-8) BASO % (test code = 0.7 % 706-2) GRAN MAT x10^3(ANC) 4.63 10*3/uL 1.99-6.95 (test code = 0361575956) IMM GRAN x10^3 (test 0.03 10*3/uL 0.00-0.06 code = 2569574094) LYMPH x10^3 (test code 1.82 10*3/uL 1.09-3.23 = 731-0) MONO x10^3 (test code 0.62 10*3/uL 0.36-1.02 = 742-7) EOS x10^3 (test code = 0.11 10*3/uL 0.06-0.53 711-2) BASO x10^3 (test code 0.05 10*3/uL 0.01-0.09 = 704-7) Lab Interpretation Abnormal (test code = 81322-0) [facility] METABOLIC PANEL (NA, K, CL, CO2, GLUCOSE, BUN, CREATININE, CA)2022-10-07 10:59:58 Test Item Value Reference Range Interpretation Comments NA (test code = 139 mmol/L 135-145 4166510106) K (test code = 4.2 mmol/L 3.5-5.0 9828917937) CL (test code = 97 mmol/L 98-108 L 0235575760) CO2 TOTAL (test code = 38 mmol/L 23-31 H 6996348354) AGAP (test code = 4 2-16 5582478381) BUN (test code = 52 mg/dL 7-23 H 0063608171) GLUCOSE (test code = 72 mg/dL 70-110 9729163981) CREATININE (test code = 2.60 mg/dL 0.60-1.25 H 1083646094) CALCIUM (test code = 9.0 mg/dL 8.6-10.6 9525606411) eGFR (test code = 24.5 mL/min/1.73m2 2525272956) TOÑA (test code = TOÑA) Association of [...] tests). Lab Interpretation Abnormal (test code = 31615-5) [facility] 10:53:00 Test Item Value Reference Range Interpretation Comments MAGNESIUM (test code = 2120484488) 2.2 mg/dL 1.7-2.4 Lab Interpretation (test code = Normal 12983-2) [facility] [id number] 20:27:21 Test Item Value Reference Range Interpretation Comments TROPONIN I (test code = 0.023 ng/mL <=0.034 3197684161) TOÑA (test code = TOÑA) Reference (Normal) [...] biotin. Lab Interpretation Normal (test code = 72666-5) [facility]. METABOLIC PANEL (50071)2022-10-05 20:25:20 Test Item Value Reference Range Interpretation Comments NA (test code = 140 mmol/L 135-145 5800154964) K (test code = 5.0 mmol/L 3.5-5.0 5630551825) CL (test code = 97 mmol/L 98-108 L 9473037791) CO2 TOTAL (test code = 40 mmol/L 23-31 H 2938660833) AGAP (test code = 3 2-16 5370599861) BUN (test code = 37 mg/dL 7-23 H 5464658942) GLUCOSE (test code = 116 mg/dL 70-110 H 8166018153) CREATININE (test code = 2.19 mg/dL 0.60-1.25 H 9633710226) TOTAL BILI (test code = 0.5 mg/dL 0.1-1.9 6476197343) CALCIUM (test code = 8.9 mg/dL 8.6-10.6 4096033211) T PROTEIN (test code = 6.4 g/dL 6.3-8.2 5215041955) ALBUMIN (test code = 3.7 g/dL 3.5-5.0 9899071493) ALK PHOS (test code = 67 U/L 34-122 0488050594) ALTv (test code = 18 U/L 5-50 1742-6) AST(SGOT) (test code = 25 U/L 13-40 6997812254) eGFR (test code = 29.8 mL/min/1.73m2 9635143638) TOÑA (test code = TOÑA) Association of [...] tests). Lab Interpretation Abnormal (test code = 63353-5) [facility] [id number] 20:25:00 Test Item Value Reference Range Interpretation Comments NT-proBNP (test code = 1580 pg/mL <=125 H 03633-2) TOÑA (test code = TOÑA) Positive: Heart Failure Likely Lab Interpretation (test Abnormal code = 75683-9) [facility]2023-[facility]-04 20:18:58 Test Item Value Reference Range Interpretation Comments MAGNESIUM (test code = 1429596247) 2.2 mg/dL 1.7-2.4 Lab Interpretation (test code = Normal 05591-0) [facility] WITH [id number] 20:11:21 Test Item Value Reference Range Interpretation Comments WBC (test code = 6.08 See_Comment [Automated 7972-2) message] The sy stem which generated this result transmitted reference range : 4.20 - 10.70 10*3/?L. The reference range was not used to interpret this result as normal/abnormal . RBC (test code = 3.36 See_Comment L [Automated 466-2) message] The sy stem which generated this [...] (test code = 55.3 fL 38.5-51.6 H 72242-2) RDW-CV (test code = 14.7 % 12.1-15.4 788-0) PLT (test code = 192 See_Comment [Automated 777-3) message] The sy stem which generated this result transmitted reference range : 150 - 328 10*3/ ?L. The reference r carolynn was not used to interpret this result as normal/abnormal . MPV (test code = 9.7 fL 9.8-13.0 L 75522-3) NRBC/100 WBC (test 0.0 See_Comment [Automat ed code = 5980834218) message] The system which generated this result transmitted reference range : 0.0 - 10.0 /100 WBCs. The refer ence range was not u sed to interpret th is result as normal/abnormal . NRBC x10^3 (test code See_Comment [Auto mated = 0312878646) message] The s ystem which generated this result transmitted reference range : 10*3/?L. The reference range was not used to interpret this result as normal/abnormal . GRAN MAT (NEUT) % 67.9 % (test code = 770-8) IMM GRAN % (test code 0.30 % = 6661066645) LYMPH % (test code = 19.1 % 736-9) MONO % (test code = 7.1 % 5905-5) EOS % (test code = 4.6 % 713-8) BASO % (test code = 1.0 % 706-2) GRAN MAT x10^3(ANC) 4.13 10*3/uL 1.99-6.95 (test code = 1801244373) IMM GRAN x10^3 (test 0.00-0.06 code = 6679281405) LYMPH x10^3 (test code 1.16 10*3/uL 1.09-3.23 = 731-0) MONO x10^3 (test code 0.43 10*3/uL 0.36-1.02 = 742-7) EOS x10^3 (test code = 0.28 10*3/uL 0.06-0.53 711-2) BASO x10^3 (test code 0.06 10*3/uL 0.01-0.09 = 704-7) Lab Interpretation Abnormal (test code = 90820-3) [facility] HEMOGLOBIN A1C [id number] 16:38:00 Test Item Value Reference Range Interpretation Comments POCT HBA1C (test code = 4548-4) 6.1 % 4-6 A Lab Interpretation (test code = Abnormal 07954-7) [facility] HEMOGLOBIN A1C [id number] 16:38:00 Test Item Value Reference Range Interpretation Comments POCT HBA1C (test code = 4548-4) 6.1 % 4-6 A Lab Interpretation (test code = Abnormal 78084-3) [facility] HEMOGLOBIN A1C [id number] 16:38:00 Test Item Value Reference Range Interpretation Comments POCT HBA1C (test code = 4548-4) 6.1 % 4-6 A Lab Interpretation (test code = Abnormal 19178-0) [facility] HEMOGLOBIN A1C [id number] 16:38:00 Test Item Value Reference Range Interpretation Comments POCT HBA1C (test code = 4548-4) 6.1 % 4-6 A Lab Interpretation (test code = Abnormal 42471-3) [facility] HEMOGLOBIN A1C [id number] 16:38:00 Test Item Value Reference Range Interpretation Comments POCT HBA1C (test code = 4548-4) 6.1 % 4-6 A Lab Interpretation (test code = Abnormal 22334-9) [facility] HEMOGLOBIN A1C [id number] 16:38:00 Test Item Value Reference Range Interpretation Comments POCT HBA1C (test code = 4548-4) 6.1 % 4-6 A Lab Interpretation (test code = Abnormal 61747-0) [facility] GLUCOSE (AUTOMATED)2022-09-18 21:57:22 Test Item Value Reference Range Interpretation Comments POCT GLU (test code = 2393367209) 326 mg/dL 70-110 H Lab Interpretation (test code = Abnormal 77758-4) [facility] GLUCOSE (AUTOMATED)2022-09-18 17:22:53 Test Item Value Reference Range Interpretation Comments POCT GLU (test code = 6495014544) 288 mg/dL 70-110 H Lab Interpretation (test code = Abnormal 96709-4) [facility] GLUCOSE (AUTOMATED)2022-09-18 13:10:20 Test Item Value Reference Range Interpretation Comments POCT GLU (test code = 8294704982) 179 mg/dL 70-110 H Lab Interpretation (test code = Abnormal 62053-4) [facility] GLUCOSE (AUTOMATED)2022-09-18 01:48:01 Test Item Value Reference Range Interpretation Comments POCT GLU (test code = 0886104242) 202 mg/dL 70-110 H Lab Interpretation (test code = Abnormal 81969-0) [facility] + LACTIC [id number] 22:20:50 Test Item Value Reference Range Interpretation Comments PH (test code = 7.34 7.32-7.42 3638989119) PCO2 JOHANNA (test code = 60 See_Comment H [Auto mated 0424345844) message] The sy stem which generated this result transmitted reference range : 41 - 51 mmHg. The reference range was not used to interpret this result as normal/abnormal . PO2 JOHANNA (test code = 59 See_Comment HH [Autom ated 2659008554) message] The sy stem which generated this result transmitted reference range : 25 - 40 mmHg. The reference range was not used to interpret this result as normal/abnormal . HCO3 JOHANNA (test code = 31 See_Comment H [Auto mated 7130574394) message] The sy stem which generated this result transmitted reference range : 24 - 28 mEq/L. The reference range was not used to interpret this result as normal/abnormal . AC VBE(BEAKER) (test 4.3 mEq/L code = 4795562357) THB JOHANNA (test code = 10.3 g/dL 13.5-18.0 L 0373070090) %O2HB JOHANNA (test code = 89.3 % 52.0-63.0 H 6236968845) %COHB JOHANNA (test code = 0.3 % 0.0-1.5 7622901410) %METHB JOHANNA (test code = 0.3 % 0.4-1.5 L 6042462633) VOL%O2 JOHANNA (test code = 13.0 % 6.0-12.0 H 9571528181) NA (test code = 139 mmol/L 135-145 2247858076) K+ (test code = 4.2 mmol/L 3.5-5.0 3624571908) AC CA IONZ (test code = 4.70 mg/dL 4.50-5.30 6814152143) GLUCOSE (test code = 129 mg/dL 70-110 H 2195801092) LACTIC ACID (test code 0.92 mmol/L 0.50-2.20 = 7675904575) Lab Interpretation Abnormal (test code = 83171-8) [facility] + LACTIC [id number] 21:21:10 Test Item Value Reference Range Interpretation Comments PH (test code = 7.32 7.32-7.42 0189904784) PCO2 JOHANNA (test code = 71 See_Comment H [Auto mated 3310823793) message] The sy stem which generated this result transmitted reference range : 41 - 51 mmHg. The reference range was not used to interpret this result as normal/abnormal . PO2 JOHANNA (test code = 49 See_Comment H [Autom ated 5907617007) message] The sy stem which generated this result transmitted reference range : 25 - 40 mmHg. The reference range was not used to interpret this result as normal/abnormal . HCO3 JOHANNA (test code = 36 See_Comment H [Auto mated 9687769339) message] The sy stem which generated this result transmitted reference range : 24 - 28 mEq/L. The reference range was not used to interpret this result as normal/abnormal . AC VBE(BEAKER) (test 7.6 mEq/L code = 0633821621) THB JOHANNA (test code = 10.8 g/dL 13.5-18.0 L 9240849526) %O2HB JOHANNA (test code = 83.3 % 52.0-63.0 H 7101519516) %COHB JOHANNA (test code = 0.6 % 0.0-1.5 6197046853) %METHB JOHANNA (test code = 0.3 % 0.4-1.5 L 3833054924) VOL%O2 JOHANNA (test code = 12.7 % 6.0-12.0 H 0634132230) NA (test code = 139 mmol/L 135-145 1181320197) K+ (test code = 4.2 mmol/L 3.5-5.0 3671673472) AC CA IONZ (test code = 4.60 mg/dL 4.50-5.30 6345188601) GLUCOSE (test code = 153 mg/dL 70-110 H 1694600665) LACTIC ACID (test code 1.04 mmol/L 0.50-2.20 = 3895794234) Lab Interpretation Abnormal (test code = 88392-5) [facility] [id number] 20:51:35 Test Item Value Reference Range Interpretation Comments TROPONIN I (test code = 0.040 ng/mL <=0.034 H 8115539335) TOÑA (test code = TOÑA) Reference (Normal) [...] biotin. Lab Interpretation Abnormal (test code = 04182-7) [facility] [id number] 20:49:11 Test Item Value Reference Range Interpretation Comments NT-proBNP (test code = 4340 pg/mL <=125 H 57791-4) TOÑA (test code = TOÑA) Positive: Heart Failure Likely Lab Interpretation (test Abnormal code = 62988-5) [facility]2023-07-17 20:40:33 Test Item Value Reference Range Interpretation Comments MAGNESIUM (test code = 1184845639) 2.1 mg/dL 1.7-2.4 Lab Interpretation (test code = Normal 75264-6) [facility] METABOLIC PANEL (55611)2022-09-17 20:40:13 Test Item Value Reference Range Interpretation Comments NA (test code = 139 mmol/L 135-145 4086454794) K (test code = 4.4 mmol/L 3.5-5.0 9929026487) CL (test code = 97 mmol/L 98-108 L 9310121429) CO2 TOTAL (test code = 37 mmol/L 23-31 H 3582297001) AGAP (test code = 5 2-16 1150753887) BUN (test code = 50 mg/dL 7-23 H 0040122259) GLUCOSE (test code = 160 mg/dL 70-110 H 3723223066) CREATININE (test code = 2.99 mg/dL 0.60-1.25 H 6006507870) TOTAL BILI (test code = 0.5 mg/dL 0.1-1.1 4878895765) CALCIUM (test code = 8.4 mg/dL 8.6-10.6 L 8068952533) T PROTEIN (test code = 6.1 g/dL 6.3-8.2 L 1035594418) ALBUMIN (test code = 3.6 g/dL 3.5-5.0 1450224936) ALK PHOS (test code = 89 U/L 34-122 4454906313) ALTv (test code = 18 U/L 5-50 1742-6) AST(SGOT) (test code = 25 U/L 13-40 1395909500) eGFR (test code = 20.8 mL/min/1.73m2 8154443092) TOÑA (test code = TOÑA) Association of [...] tests). Lab Interpretation Abnormal (test code = 08347-7) [facility]IP[facility]2023-07-17 20:40:13 Test Item Value Reference Range Interpretation Comments LIPASE (test code = 2672923074) 97 U/L 0-220 Lab Interpretation (test code = Normal 80207-5) [facility] WITH [id number] 20:29:49 Test Item Value Reference Range Interpretation Comments WBC (test code = 7.51 See_Comment [Automated 9590-2) message] The sy stem which generated this result transmitted reference range : 4.20 - 10.70 10*3/?L. The reference range was not used to interpret this result as normal/abnormal . RBC (test code = 3.11 See_Comment L [Automated 279-8) message] The sy stem which generated this [...] (test code = 59.1 fL 38.5-51.6 H 06974-1) RDW-CV (test code = 15.8 % 12.1-15.4 H 788-0) PLT (test code = 178 See_Comment [Automated 777-3) message] The sy stem which generated this result transmitted reference range : 150 - 328 10*3/ ?L. The reference r carolynn was not used to interpret this result as normal/abnormal . MPV (test code = 10.8 fL 9.8-13.0 38758-7) NRBC/100 WBC (test 0.0 See_Comment [Automat ed code = 5676567724) message] The system which generated this result transmitted reference range : 0.0 - 10.0 /100 WBCs. The refer ence range was not u sed to interpret th is result as normal/abnormal . NRBC x10^3 (test code See_Comment [Auto mated = 5040929572) message] The s ystem which generated this result transmitted reference range : 10*3/?L. The reference range was not used to interpret this result as normal/abnormal . GRAN MAT (NEUT) % 61.8 % (test code = 770-8) IMM GRAN % (test code 0.50 % = 9375805013) LYMPH % (test code = 23.4 % 736-9) MONO % (test code = 8.9 % 5905-5) EOS % (test code = 4.5 % 713-8) BASO % (test code = 0.9 % 706-2) GRAN MAT x10^3(ANC) 4.63 10*3/uL 1.99-6.95 (test code = 6955818303) IMM GRAN x10^3 (test 0.04 10*3/uL 0.00-0.06 code = 8012190174) LYMPH x10^3 (test code 1.76 10*3/uL 1.09-3.23 = 731-0) MONO x10^3 (test code 0.67 10*3/uL 0.36-1.02 = 742-7) EOS x10^3 (test code = 0.34 10*3/uL 0.06-0.53 711-2) BASO x10^3 (test code 0.07 10*3/uL 0.01-0.09 = 704-7) Lab Interpretation Abnormal (test code = 64400-4) [facility] GLUCOSE (AUTOMATED)2022-09-17 20:08:02 Test Item Value Reference Range Interpretation Comments POCT GLU (test code = 7011970065) 149 mg/dL 70-110 H Lab Interpretation (test code = Abnormal 37106-7) [facility] GLUCOSE(AGE >30DAYS)2022-09-17 20:08:00 Test Item Value Reference Range Interpretation Comments POCT Glu (age>30days) (test code = 149 mg/dL 70-110 A 3342) Lab Interpretation (test code = Abnormal 31746-8) [facility] HospitalCOMPREHENSIVE METABOLIC [id number] 06:00:00 Test Item Value Reference Range Interpretation [...] the recommended for christofer for GFRby the N ational Kidney Foundati on for Adults.The GFR will [...] 50.0-136.0 N TOTAL (test code = ALKP) [id number] 06:00:00 Test Item Value Reference Range Interpretation Comments MAGNESIUM (test code = MAG) 1.9 mg/dl 1.8-2.4 N CBC W/AUTO [id number] 05:36:00 Test Item Value Reference Range Interpretation [...] Daily while on Heparin- XR CHEST 1 [id number] 14:31:00 [facility] 1950 Sex: M FAX: Caren Lopes MD [phone] [place]: EM St: ADM FAX: Kellie Nava P [phone] Name: RICKI MCCLAIN [facility] : 1950 Age/S: 72/M [address] [facility] Unit #: [id number] Loc: E.IC02 [place], [place] Phys: Kellie Vanegas [address] Acct: [id number] Dis Date: Status: ADM IN PHONE #: [phone] Exam Date: 08/25/2022 143 FAX #: [phone] Reason: SOB EXAMS: CPT CODE: [id number] XR CHEST 1 V 09177 HISTORY: Shortness of breath Location: C3 COMPARISON:08/21/2022 FINDINGS: There is cardiomegaly with perihilar and basilar opacities. No pneumothorax. Aortic calcifications are present. No other changes compared to prior study. IMPRESSION: 1. Stable chest with perihilar and basilar opacities compatible with areas of edema and pneumonia. Electronically Signed by Loretta Lin on08/25/2022 at 1431 Reported and signed by: Chuck Lin M.D. CC: Caren Lopes MD; Kellie TORRES Technologist: Melonie Obandord Date/Time/By: 08/25/2022 (1431) : By: [email or web address] PAGE 1 Signed Report FAX: Caren Lopes MD [phone] [place]: St: ADM FAX: Kellie Nava P [phone] Name: TRUMAN MCCLAIN [facility] : 1950 Age/S: 72/M [address] [facility] Unit #: [id number] Loc:E.IC02 [place], [place] Phys: Kellie Vanegas BRIAN [address] Acct: [id number] Dis Date: Status: ADM INPHONE #: [phone] Exam Date: 08/25/2022 1431 FAX #: [phone] Reason: SOB EXAMS: CPT CODE: [id number] XR CHEST 1 V 91259 (Continued) Orig Print D/T: S: 08/25/2022 (1434) PAGE 2 Signed ReportCOVID 19 Asymptomatic IH [id number] 05:47:00 Test Item Value Reference Range Interpretation Comments COVID 19 NEGATIVE NEGATIVE Negative result s should be Asymptomatic IH AG treated a s presumptive and (test code = ifinconsistent with COVNONPUIAG) clinical signs and symptoms, or ne cessaryfor patient managem ent, should be tested with an alternativemole cular assay. Negative results do not preclude TFTP-LlC-8ilchl tion and should not be u sed as the sole basis forp atient management deci sions. Negative result s should beconsidered in the context of a pa monster's recent exposure s,history, presence of cli nical signs and symptoms consistentwith COVID-19. BASIC METABOLIC [id number] 05:46:00 Test Item Value Reference Range Interpretation [...] mg/dl 8.0-10.5 N = CA) CBC W/AUTO [id number] 05:34:00 Test Item Value Reference Range Interpretation [...] % 15-50 N (test code = FESAT) [id number] 11:08:00 Test Item Value Reference Range Interpretation Comments FERRITIN (test code = PRETTY) 217 ng/mL 23.9-336.2 N BASIC METABOLIC [id number] 10:52:00 Test Item Value Reference Range Interpretation [...] mg/dl 8.0-10.5 N = CA) THROMBOPLASTIN TIME [id number] 10:49:00 Test Item Value Reference Range Interpretation Comments THROMBOPLASTIN TIME 71.50 SECONDS 25.86-36.07 [facility] PARTIAL (test code = Therape utic Range - PTT) APTT of 48.8-80 .3 secondscorrelat es with plasma heparin concentration o f 0.2-0.4 u/mL CBC W/AUTO [id number] 04:46:00 Test Item Value Reference Range Interpretation [...] Specimen comments: Daily while on HeparinTHROMBOPLASTIN TIME [id number] 04:45:00 Test Item Value Reference Range Interpretation Comments THROMBOPLASTIN TIME 74.80 SECONDS 25.86-36.07 [facility] PARTIAL (test code = Therape utic Range - PTT) APTT of 48.8-80 .3 secondscorrelat es with plasma heparin concentration o f 0.2-0.4 u/mL THROMBOPLASTIN TIME [id number] 23:18:00 Test Item Value Reference Range Interpretation Comments THROMBOPLASTIN TIME 63.80 SECONDS 25.86-36.07 [facility] PARTIAL (test code = Therape utic Range - PTT) APTT of 48.8-80 .3 secondscorrelat es with plasma heparin concentration o f 0.2-0.4 u/mL THROMBOPLASTIN TIME [id number] 16:42:00 Test Item Value Reference Range Interpretation Comments THROMBOPLASTIN TIME 43.40 SECONDS 25.86-36.07 [facility] PARTIAL (test code = Therape utic Range - PTT) APTT of 48.8-80 .3 secondscorrelat es with plasma heparin concentration o f 0.2-0.4 u/mL - RETRO [id number] 10:12:00 [facility] : 1950 Sex: M FAX: Caren Lopes MD [phone] [place]: St: ADM FAX: Selina Chapa MD [phone] Name: RICKI MCCLAIN [facility] : 1950 Age/S: 72/M [address] [facility] [employer] Unit #: [id number] Loc: [address] Phys: [place] [address] Acct: [id number] Dis Date: Status: ADM IN PHONE #: [phone] Exam Date: 08/23/2022911 FAX #: [phone] Reason: DIA vs CKD EXAMS: CPT CODE: [id number] RETRO LTD 66044 EXAM: - US RETRO LTD HISTORY: DIA [...] MD Technologist: CATARINO PALMA Trnscrd Date/Time/By: 08/23/2022 (1012): By: [email or web address] PAGE 1 Signed Report FAX: Caren Lopes MD [phone] [place]: St: ADM FAX: Selina Chapa MD [phone] Name: RICKI MCCLAIN [facility] : 1950 Age/S: 72/M [address] [facility] Unit #: [id number] Loc: [address] Phys: [place] [address] Acct: [id number] Dis Date: Status: ADM IN PHONE #: [phone] Exam Date: 08/23/2022911 FAX #: [phone] Reason: DIA vs CKD EXAMS: CPT CODE: [id number] [employer] [address]203 (Continued) Orig Print D/T: S: 08/23/2022 (1015) PAGE 2 Signed ReportTHROMBOPLASTIN TIME [id number] 08:50:00 Test Item Value Reference Range Interpretation Comments THROMBOPLASTIN TIME 82.60 SECONDS 25.86-36.07 [facility] PARTIAL (test code = Therape utic Range - PTT) APTT of 48.8-80 .3 secondscorrelat es with plasma heparin concentration o f 0.2-0.4 u/mL CBC W/AUTO [id number] 08:43:00 Test Item Value Reference Range Interpretation [...] Specimen comments: Daily while on HeparinTHROMBOPLASTIN TIME [id number] 22:42:00 Test Item Value Reference Range Interpretation Comments THROMBOPLASTIN TIME 41.20 SECONDS 25.86-36.07 [facility] PARTIAL (test code = Therape utic Range - PTT) APTT of 48.8-80 .3 secondscorrelat es with plasma heparin concentration o f 0.2-0.4 u/mL THROMBOPLASTIN TIME [id number] 15:55:00 Test Item Value Reference Range Interpretation Comments THROMBOPLASTIN TIME 55.90 SECONDS 25.86-36.07 [facility] PARTIAL (test code = Therape utic Range - PTT) APTT of 48.8-80 .3 secondscorrelat es with plasma heparin concentration o f 0.2-0.4 u/mL PROTHROMBIN [id number] 15:54:00 Test Item Value Reference Range Interpretation Comments PROTHROMBIN TIME 10.1 SECONDS 9.9-12.8 N PATIENT (test code = PTP) INTERNATIONAL NORMAL 0.9 0.89-1.14 N THE INR IS TO BE USED RATIO (test code = ONLY FOR MONITORING INR) ORAL ANTICOAGULANTTH ERAPY. THE FOLLOWING A RE SUGGESTED RANGE S [facility]YSICI[facility]:MIGUEL CATION INR VALUEPROPHY [...] - 3.0 VALVULAR HEART DISEASE 2.0 - 3.0 ATRIAL FIBRILAT ION 2.0 - 3.0BILEAFLET MECHANICAL VALV E IN AORTIC POSITION 2.0 - 3.0MECHANICAL PROSTHETIC VALV ES (HIGH RISK) 2. 5 - 3.5PRESENCE OF LUPUS ANTICOAGULANT O R ANTIPHOSPHOLIPI D ANTIBODIES 2.5 - 3.5 PROTHROMBIN [id number] 06:35:00 Test Item Value Reference Range Interpretation Comments PROTHROMBIN TIME 9.9 SECONDS 9.9-12.8 N PATIENT (test code = PTP) INTERNATIONAL NORMAL 0.9 0.89-1.14 N THE INR IS TO BE USED RATIO (test code = ONLY FOR MONITORING INR) ORAL ANTICOAGULANTTH ERAPY. THE FOLLOWING A RE SUGGESTED RANGE S [facility] LEGE OF CHEST PHYSICIANS:MIGUEL CATION INR VALUEPROPHY LAXIS OF VENOUS THROM BOSIS (ORTHOPEDIC RASHAD OSCAR) 2.0 - 3.0PROPHY LAXIS OF VENOUS THROM BOSIS (OTHER THAN HIG H-RISK SURGERY) 2.0 - 3.0TREATMENT OF DEEP VEIN THROMBOSIS OR PULMONARY EMBOL ISM 2.0 - 3.0PREVEN TION OF SYSTEMIC EMBOLI SM TISSUE HEART VA [...] ALREADY DONE WITHIN LAST 24 HOURSTHROMBOPLASTIN TIME [id number] 06:35:00 Test Item Value Reference Range Interpretation Comments THROMBOPLASTIN TIME 42.50 SECONDS 25.86-36.07 [facility] PARTIAL (test code = Therape utic Range - PTT) APTT of 48.8-80 .3 secondscorrelat es with plasma heparin concentration o f 0.2-0.4 u/mL ALREADY DONE FOR TODAY 08/21/2022Specimen comments: IF NOT ALREADY DONE WITHIN LAST 24 HOURSBASIC METABOLIC [id number] 06:33:00 Test Item Value Reference Range Interpretation [...] code 8.6 mg/dl 8.0-10.5 N = CA) [id number] 06:33:00 Test Item Value Reference Range Interpretation Comments MAGNESIUM (test code = MAG) 2.6 mg/dl 1.8-2.4 H CBC W/AUTO [id number] 06:11:00 Test Item Value Reference Range Interpretation [...] ALREADY DONE WITHIN LAST 24 HOURSTROP-I HIGH [id number] 21:18:00 Test Item Value Reference Range Interpretation [...] results may margot y bymethod. TROP-I HIGH [id number] 19:05:00 Test Item Value Reference Range Interpretation [...] results may margot y bymethod. B-TYPE NATRIURETIC [id number] 16:50:00 Test Item Value Reference Range Interpretation Comments B-TYPE NATRIURETIC PEPTIDE (test 4840 PG/ML 5-100 H code = BNP) TROP-I HIGH [id number] 16:50:00 Test Item Value Reference Range Interpretation Comments TROP-I HIGH 8390 ng/L 0-76 HH CAUTION: Units of the SENSITIVITY (test current TR OPI-HS test code = TROPIHS) methodology( ng/L) differ from the prior test methodolog y (ng/mL) by afac tor of 1000. -------- -------- ---99th Percentile: Fem ales: 0 - 51 ng/L Male s: 0 - 76 ng/LThese re sults were obtained u sing [facility]. Re sults from different methodologies s hould not becompared to one another as regino titative results may margot y bymethod. LIPOPROTEIN [id number] 16:50:00 Test Item Value Reference Range Interpretation Comments LIPOPROTEIN LDL (test code = LDL) 90 mg/dl 70-130 N BASIC METABOLIC [id number] 16:50:00 Test Item Value Reference Range Interpretation [...] mL/min >30 CLEARANCE (test code = ECRCL) [id number] 16:39:00 Test Item Value Reference Range Interpretation Comments MAGNESIUM (test code = MAG) 2.2 mg/dl 1.8-2.4 N LACTIC [id number] 16:33:00 Test Item Value Reference Range Interpretation Comments LACTIC ACID (test code = LACT) 1.2 mmol/L 0.4-2.0 N PROTHROMBIN [id number] 16:13:00 Test Item Value Reference Range Interpretation Comments PROTHROMBIN TIME 10.6 SECONDS 9.9-12.8 N PATIENT (test code = PTP) INTERNATIONAL NORMAL 1.0 0.89-1.14 N THE INR IS TO BE USED RATIO (test code = ONLY FOR MONITORING INR) ORAL ANTICOAGULANTTH ERAPY. THE FOLLOWING A RE SUGGESTED RANGE S [facility] LEGE OF CHEST PHYSICIANS:MIGUEL CATION INR VALUEPROPHY [...] - 3.0 VALVULAR HEART DISEASE 2.0 - 3.0 ATRIAL FIBRILAT ION 2.0 - 3.0BILEAFLET MECHANICAL VALV E IN AORTIC POSITION 2.0 - 3.0MECHANICAL PROSTHETIC VALV ES (HIGH RISK) 2.5 - 3.5PRESENCE OF LUPUS ANTICOAGULANT O R ANTIPHOSPHOLIPI D ANTIBODIES 2.5 - 3.5 Specimen comments: .THROMBOPLASTIN TIME [id number] 16:13:00 Test Item Value Reference Range Interpretation Comments THROMBOPLASTIN TIME 28.00 SECONDS 25.86-36.07 [facility] PARTIAL (test code = Therape utic Range - PTT) APTT of 48.8-80 .3 secondscorrelat es with plasma heparin concentration o f 0.2-0.4 u/mL Specimen comments: .CBC W/AUTO [id number] 16:05:00 Test Item Value Reference Range Interpretation [...] 0.00-0.01 N NRBC#) - XR CHEST 1 [id number] 15:57:00 [facility] : 1950 Sex: M FAX: Sara Santacruz DO [place]: St: REG Name: RICKI MCCLAIN [facility] : 1950 Age/S: 72/M [address] [facility] Unit #: [id number] Loc: E.ERS[address] [place] [address] Phys: [place] [id number] Acct: [id number] Dis Date: Status: REG ER PHONE #: [phone] Exam Date: 08/21/2022 7059 FAX #: [phone] Reason: Chest Pain EXAMS: CPT CODE: [id number] XR CHEST 1 V 38606 EXAMINATION: - XR CHEST 1 V Location: H4 CLINICAL INDICATION: Male, 72 years year old [...] airspace disease and likely small left effusion. at 1557 Reported and signed by: Boo Turpin M.D. CC: Sara Santacruz DO Technologist: BRIANNA JENKINS Trnscrd Date/Time/By: 08/21/2022 (0816) : By: 5 PAGE 1 Signed Report FAX: Sara Santacruz DO [place]: St: REG Name: RICKI MCCLAIN [facility] : 1950 Age/S: 72/M [address] [facility] Unit #: [id number] Loc: E.ERS2 [place], [place]: [place] [id number] Acct: [id number] Dis Date: Status: REG ER PHONE #: [phone] Exam Date: 08/21/2022 1555 FAX #: [phone] Reason:Chest Pain EXAMS: CPT CODE: [id number] XR CHEST 1 V 66784 (Continued) Orig Print D/T: S: 08/21/2022 (1600) PAGE 2 Signed ReportCARDIAC [id number] 21:03:00 Test Item Value Reference Range Interpretation Comments Troponin-I (test code = Troponin-I) no gt <=0.40 [facility] Upstream TechnologiesCARDIAC [id number] 21:03:00 Test Item Value Reference Range Interpretation Comments BNP (test code = BNP) 75 [facility] [employer] [id number] 21:03:00 Test Item Value Reference Range Interpretation Comments Lipase Lvl (test code = Lipase Lvl) 130 73-393 [facility]LrslyaeTQGXAJFHCJPE3162-69-75 21:03:00 Test Item Value Reference Range Interpretation Comments AGAP (test code = AGAP) 12.6 10.0-20.0 [facility] HospitalPdroegdWEDMZVREVOUE9902-71-65 21:03:00 Test Item Value Reference Range Interpretation Comments B/C Ratio (test code = B/C Ratio) 16 1 6-25 [facility] HospitalYbyussxSZAZEZKYWWGK2244-55-37 21:03:00 Test Item Value Reference Range Interpretation Comments Globulin (test code = Globulin) 3.8 2.7-4.2 [facility] HospitalSsbdxpqJIUAOAQTMTKR7218-48-36 21:03:00 Test Item Value Reference Range Interpretation Comments A/G Ratio (test code = A/G Ratio) 0.9 1 0.7-1.6 [facility] HospitalCdwmxseSGQHTCFNSYZX5206-33-30 21:03:00 Test Item Value Reference Range Interpretation Comments Glucose Lvl (test code = Glucose Lvl) 177 70-99 [facility] HospitalVhgyzfvPHTJISYHWZTM2914-52-50 21:03:00 Test Item Value Reference Range Interpretation Comments BUN (test code = BUN) 35 7-22 [facility] HospitalCuausshFBHWERVRPUKH4429-52-35 21:03:00 Test Item Value Reference Range Interpretation Comments Creatinine Lvl (test code = Creatinine 2.24 0.50-1.40 Lvl) [facility] HospitalNuhdvxdFQYBNYOFYEKM9041-32-65 21:03:00 Test Item Value Reference Range Interpretation Comments Sodium Lvl (test code = Sodium Lvl) 139 135-145 [facility] HospitalQkbttbzKLTWPEJGPRYT5116-67-76 21:03:00 Test Item Value Reference Range Interpretation Comments Potassium Lvl (test code = Potassium 4.6 3.5-5.1 Lvl) [facility] HospitalYtzpemqEVYNTJMDOWDE8070-37-24 21:03:00 Test Item Value Reference Range Interpretation Comments Chloride Lvl (test code = Chloride Lvl) 105 95-109 [facility] HospitalOocmajjBJFOKQSUKWEC1625-87-35 21:03:00 Test Item Value Reference Range Interpretation Comments CO2 (test code = CO2) 26 24-32 [facility] HospitalFnjhlvpBCRZGCUBLOKJ6987-87-86 21:03:00 Test Item Value Reference Range Interpretation Comments Calcium Lvl (test code = Calcium Lvl) 9.5 8.5-10.5 [facility] HospitalKvxswllYOCITZESNWWQ6240-93-26 21:03:00 Test Item Value Reference Range Interpretation Comments Total Protein (test code = Total 7.2 6.4-8.4 Protein) [facility] HospitalVfdusioSOOROMGONHCY8635-82-69 21:03:00 Test Item Value Reference Range Interpretation Comments Albumin Lvl (test code = Albumin Lvl) 3.4 3.5-5.0 [facility] HospitalZfyycrgYQYXMYWUAEFT3613-35-39 21:03:00 Test Item Value Reference Range Interpretation Comments ALT (test code = ALT) 28 <=65 [facility] HospitalNaunqkeHNFYWWAKWLMC3386-32-69 21:03:00 Test Item Value Reference Range Interpretation Comments AST (test code = AST) 22 <=37 [facility] HospitalXxjrnhjFZVZELTXNLNM6655-03-08 21:03:00 Test Item Value Reference Range Interpretation Comments Alk Phos (test code = Alk Phos) 82 39-136 [facility] HospitalVlyumtuOVCIZQFKHQNY9192-69-41 21:03:00 Test Item Value Reference Range Interpretation Comments Bili Total (test code = Bili Total) 0.4 0.2-1.3 [facility] HospitalEbytkuqPNMKMCRASWIP4357-66-52 21:03:00 Test Item Value Reference Range Interpretation Comments eGFR (test code = eGFR) 29 [facility]DcgqvvhKHDFETLRSX1986-51-82 21:03:00 Test Item Value Reference Range Interpretation Comments WBC (test code = WBC) 11.0 3.7-10.4 [facility] HospitalUmdfcwsWLVMJKNHID3648-97-70 21:03:00 Test Item Value Reference Range Interpretation Comments RBC (test code = RBC) 4.22 4.70-6.10 [facility] HospitalSuqweinJBTHRHTRSK0715-18-58 21:03:00 Test Item Value Reference Range Interpretation Comments Hgb (test code = Hgb) 13.4 14.0-18.0 [facility] HospitalKgztrzkUVAOKZFBNA4969-13-58 21:03:00 Test Item Value Reference Range Interpretation Comments Hct (test code = Hct) 40.2 42.0-54.0 [facility] HospitalClptmtcPSYZBKTEKR6024-13-17 21:03:00 Test Item Value Reference Range Interpretation Comments MCV (test code = MCV) 95.2 80.0-94.0 [facility] HospitalIzayeugVXRKTMEOJZ7915-32-99 21:03:00 Test Item Value Reference Range Interpretation Comments MCH (test code = MCH) 31.7 pg 27.0-31.0 [facility] HospitalHeotsygVAWMAWLVXU4785-60-94 21:03:00 Test Item Value Reference Range Interpretation Comments MCHC (test code = MCHC) 33.3 32.0-36.0 [facility] HospitalUpagiidMGCDULLSNK2671-18-28 21:03:00 Test Item Value Reference Range Interpretation Comments RDW (test code = RDW) 14.3 11.5-14.5 [facility] HospitalGfqdovxTDRQFMFRSE9751-75-41 21:03:00 Test Item Value Reference Range Interpretation Comments Platelet (test code = Platelet) 286 133-450 [facility] HospitalJyttnefDGBCEROLWF8496-25-98 21:03:00 Test Item Value Reference Range Interpretation Comments MPV (test code = MPV) 8.5 7.4-10.4 [facility] HospitalKzaxbyaEAQUDPEMGN2385-67-27 21:03:00 Test Item Value Reference Range Interpretation Comments Segs (test code = Segs) 91.9 45.0-75.0 [facility] HospitalKcpmzmkQEJVDZEQRC6601-63-59 21:03:00 Test Item Value Reference Range Interpretation Comments Lymphocytes (test code = Lymphocytes) 5.0 20.0-40.0 [facility] HospitalScuvrfvKTDGSCJOBU5520-23-92 21:03:00 Test Item Value Reference Range Interpretation Comments Monocytes (test code = Monocytes) 2.4 2.0-12.0 [facility] HospitalZozlcboDTXBLDQLZQ7273-52-01 21:03:00 Test Item Value Reference Range Interpretation Comments Basophils (test code = Basophils) 0.7 <=1.0 [facility] HospitalOhpsmjzGCWCMMUIEG3009-30-21 21:03:00 Test Item Value Reference Range Interpretation Comments Neutrophils # (test code = Neutrophils 10.1 1.5-8.1 #) [facility] HospitalIsifgvsVYTLOFYAKA2589-88-31 21:03:00 Test Item Value Reference Range Interpretation Comments Lymphocytes # (test code = Lymphocytes 0.5 1.0-5.5 #) [facility] HospitalDuwnmkeQHNXRDNZAO5371-39-38 21:03:00 Test Item Value Reference Range Interpretation Comments Monocytes # (test code = Monocytes #) 0.3 <=0.8 [facility] HospitalIkqvfbmVLIXNPXQNZ1002-59-73 21:03:00 Test Item Value Reference Range Interpretation Comments Basophils # (test code = Basophils #) 0.1 <=0.2 [facility]CARAC [id number] 21:03:00 Test Item Value Reference Range Interpretation Comments Troponin-I (test code no gt See_Comment [Auto mated message] The = Troponin-I) system which g enerated this result transmit todd reference range : <=0.40. The reference r carolynn was not used to interpr et this result as kimberli l/abnormal. [facility] SouthNonlinear DynamicsAC FYORSEO5603-59-23 21:03:00 Test Item Value Reference Range Interpretation Comments BNP (test code = BNP) 75 [facility] SouthCHEM [id number] 21:03:00 Test Item Value Reference Range Interpretation Comments Lipase Lvl (test code = Lipase Lvl) 130 73-393 [facility]VlykrjjAOSVGSSHCDPR7249-03-92 21:03:00 Test Item Value Reference Range Interpretation Comments AGAP (test code = AGAP) 12.6 10.0-20.0 [facility] HospitalPlbvfybPTELLWJMIANY1333-17-39 21:03:00 Test Item Value Reference Range Interpretation Comments B/C Ratio (test code = B/C Ratio) 16 1 6-25 [facility] BrookZsvarxcUOGIMRNOXAVW2200-86-03 21:03:00 Test Item Value Reference Range Interpretation Comments Globulin (test code = Globulin) 3.8 2.7-4.2 [facility] BrookRyyqqcwAGSVEXYFRCVZ0326-87-03 21:03:00 Test Item Value Reference Range Interpretation Comments A/G Ratio (test code = A/G Ratio) 0.9 1 0.7-1.6 [facility] HospitalVailonyUKTGGYKFDDGI9963-66-71 21:03:00 Test Item Value Reference Range Interpretation Comments Glucose Lvl (test code = Glucose Lvl) 177 70-99 [facility] BrookSpjoovpKRIYHQEPKZNN0520-97-78 21:03:00 Test Item Value Reference Range Interpretation Comments BUN (test code = BUN) 35 7-22 [facility] BrookUjlyaugDACDSTHKBCQL8995-92-63 21:03:00 Test Item Value Reference Range Interpretation Comments Creatinine Lvl (test code = Creatinine 2.24 0.50-1.40 Lvl) [facility] ClubEufeowsOAQMXPCAGAPS7851-28-51 21:03:00 Test Item Value Reference Range Interpretation Comments Sodium Lvl (test code = Sodium Lvl) 139 135-145 [facility] HospitalOfrlvptHDVCQITXQXID9238-42-19 21:03:00 Test Item Value Reference Range Interpretation Comments Potassium Lvl (test code = Potassium 4.6 3.5-5.1 Lvl) [facility] HospitalSqfwclaTDGMVLBRKSHJ0104-25-22 21:03:00 Test Item Value Reference Range Interpretation Comments Chloride Lvl (test code = Chloride Lvl) 105 95-109 [facility] HospitalZphfsaxRAHZBGVUONOW9947-13-11 21:03:00 Test Item Value Reference Range Interpretation Comments CO2 (test code = CO2) 26 24-32 [facility] HospitalOnbgndsUCWXMFJBQTLC1701-79-21 21:03:00 Test Item Value Reference Range Interpretation Comments Calcium Lvl (test code = Calcium Lvl) 9.5 8.5-10.5 [facility] HospitalInarsrbPLWDWTHJKMRR4882-85-13 21:03:00 Test Item Value Reference Range Interpretation Comments Total Protein (test code = Total 7.2 6.4-8.4 Protein) [facility] HospitalKkyirkjIOBDSMXUYSVP9272-54-91 21:03:00 Test Item Value Reference Range Interpretation Comments Albumin Lvl (test code = Albumin Lvl) 3.4 3.5-5.0 [facility] HospitalOgruphhFIZTXDPFKEGB2492-74-69 21:03:00 Test Item Value Reference Range Interpretation Comments ALT (test code = ALT) 28 See_Comment [Auto mated message] The system which ge nerated this result transmit todd reference range : <=65. The reference range was not used to interpr et this result as kimberli l/abnormal. [facility] HospitalHtjvennVXALEEMAAZMB4798-32-63 21:03:00 Test Item Value Reference Range Interpretation Comments AST (test code = AST) 22 See_Comment [Auto mated message] The system which ge nerated this result transmit todd reference range : <=37. The reference range was not used to interpr et this result as kimberli l/abnormal. [facility] HospitalDzqksurNQKMURZEWZYH5061-05-96 21:03:00 Test Item Value Reference Range Interpretation Comments Alk Phos (test code = Alk Phos) 82 39-136 [facility] HospitalFiflsdzXHTHILMZKNSI1350-35-72 21:03:00 Test Item Value Reference Range Interpretation Comments Bili Total (test code = Bili Total) 0.4 0.2-1.3 [facility] HospitalEmmhtgaEYUGZEXYWBVR6207-25-09 21:03:00 Test Item Value Reference Range Interpretation Comments eGFR (test code = eGFR) 29 [facility] HospitalVsdrqooFQVYQJPKUZ9893-58-16 21:03:00 Test Item Value Reference Range Interpretation Comments WBC (test code = WBC) 11.0 3.7-10.4 [facility] HospitalHhulgwrXHDICEZXYD4325-69-04 21:03:00 Test Item Value Reference Range Interpretation Comments RBC (test code = RBC) 4.22 4.70-6.10 [facility] HospitalKucfiebGXFOXLAJSR7196-08-55 21:03:00 Test Item Value Reference Range Interpretation Comments Hgb (test code = Hgb) 13.4 14.0-18.0 [facility] HospitalCoxhxasKTGGYIOMCJ1955-57-20 21:03:00 Test Item Value Reference Range Interpretation Comments Hct (test code = Hct) 40.2 42.0-54.0 [facility] HospitalFvsdxetWQBSVQGWXR0480-98-23 21:03:00 Test Item Value Reference Range Interpretation Comments MCV (test code = MCV) 95.2 80.0-94.0 [facility] HospitalPaqzrwuBHYZAQRNZQ8473-76-72 21:03:00 Test Item Value Reference Range Interpretation Comments MCH (test code = MCH) 31.7 pg 27.0-31.0 [facility] HospitalRlssznkHPETXFWPZG7639-66-07 21:03:00 Test Item Value Reference Range Interpretation Comments MCHC (test code = MCHC) 33.3 32.0-36.0 [facility] HospitalDeagirjKQTNDEXKAV5568-33-64 21:03:00 Test Item Value Reference Range Interpretation Comments RDW (test code = RDW) 14.3 11.5-14.5 [facility] HospitalCukcemmAJRSKJODWZ1797-85-07 21:03:00 Test Item Value Reference Range Interpretation Comments Platelet (test code = Platelet) 286 133-450 [facility] HospitalStjeiuhDXOQQGEGVW5973-60-92 21:03:00 Test Item Value Reference Range Interpretation Comments MPV (test code = MPV) 8.5 7.4-10.4 [facility] HospitalTljvputLWPYZIIZNX7802-06-37 21:03:00 Test Item Value Reference Range Interpretation Comments Segs (test code = Segs) 91.9 45.0-75.0 [facility] HospitalXjxpyohYQCCNPVTHZ1108-43-39 21:03:00 Test Item Value Reference Range Interpretation Comments Lymphocytes (test code = Lymphocytes) 5.0 20.0-40.0 [facility] HospitalRsyvadeFOOPVGCGVH0958-75-72 21:03:00 Test Item Value Reference Range Interpretation Comments Monocytes (test code = Monocytes) 2.4 2.0-12.0 [facility] HospitalHvhjhriLXAHGPOYOG8659-15-15 21:03:00 Test Item Value Reference Range Interpretation Comments Basophils (test code = 0.7 See_Comment [Aut omated message] The Basophils) system which ge nerated this result tra nsmitted reference range : <=1.0. The reference r carolynn was not used to int erpret this result as normal/abnormal . [facility] HospitalLfzrzqcYIZPQDFHLY1245-79-08 21:03:00 Test Item Value Reference Range Interpretation Comments Neutrophils # (test code = Neutrophils 10.1 1.5-8.1 #) [facility] HospitalKzhcbwpKVZZELRWFY5866-59-91 21:03:00 Test Item Value Reference Range Interpretation Comments Lymphocytes # (test code = Lymphocytes 0.5 1.0-5.5 #) [facility] HospitalKrlnjqaGQRMRCHQYE1152-70-58 21:03:00 Test Item Value Reference Range Interpretation Comments Monocytes # (test code 0.3 See_Comment [Aut omated message] The = Monocytes #) system which generated this result tra nsmitted reference range : <=0.8. The reference r carolynn was not used to int erpret this result as normal/abnormal . [facility] HospitalZrbjosqTYQEKSGPJY2608-90-16 21:03:00 Test Item Value Reference Range Interpretation Comments Basophils # (test code 0.1 See_Comment [Aut omated message] The = Basophils #) system which generated this result tra nsmitted reference range : <=0.2. The reference r carolynn was not used to int erpret this result as normal/abnormal . [facility] [place] VKLSUJS4426-55-87 21:03:00 Test Item Value Reference Range Interpretation Comments Troponin-I (test code no gt See_Comment [Auto mated message] The = Troponin-I) system which g enerated this result transmit todd reference range : <=0.40. The reference r carolynn was not used to interpr et this result as kimberli l/abnormal. [facility] LSWFGXA5993-64-10 21:03:00 Test Item Value Reference Range Interpretation Comments BNP (test code = BNP) 75 [facility]CHE[facility] LPRUZ8730-26-83 21:03:00 Test Item Value Reference Range Interpretation Comments Lipase Lvl (test code = Lipase Lvl) 130 73-393 [facility] HospitalXyzbiisWVHSDWPKIKQC2228-62-88 21:03:00 Test Item Value Reference Range Interpretation Comments AGAP (test code = AGAP) 12.6 10.0-20.0 [facility] HospitalUbqqxwrUNIWKJIZDULN9400-88-38 21:03:00 Test Item Value Reference Range Interpretation Comments B/C Ratio (test code = B/C Ratio) 16 1 6-25 [facility] HospitalFqglfndWAEUJNLZXALG3887-30-07 21:03:00 Test Item Value Reference Range Interpretation Comments Globulin (test code = Globulin) 3.8 2.7-4.2 [facility] HospitalArmuardESWDXPLYXVNB6670-01-26 21:03:00 Test Item Value Reference Range Interpretation Comments A/G Ratio (test code = A/G Ratio) 0.9 1 0.7-1.6 [facility] HospitalZrxpfxuRIZCCWPCPUSX6763-85-66 21:03:00 Test Item Value Reference Range Interpretation Comments Glucose Lvl (test code = Glucose Lvl) 177 70-99 [facility] HospitalVeoipoiZPEUALPXEBGB2827-70-69 21:03:00 Test Item Value Reference Range Interpretation Comments BUN (test code = BUN) 35 7-22 [facility] HospitalKifcmtfITAQAMVDSBWH3038-62-55 21:03:00 Test Item Value Reference Range Interpretation Comments Creatinine Lvl (test code = Creatinine 2.24 0.50-1.40 Lvl) [facility] HospitalDhcvvvwVBURTYXHHHCB0531-28-22 21:03:00 Test Item Value Reference Range Interpretation Comments Sodium Lvl (test code = Sodium Lvl) 139 135-145 [facility] HospitalUzpvelvYJIGFAVECCCG4699-64-34 21:03:00 Test Item Value Reference Range Interpretation Comments Potassium Lvl (test code = Potassium 4.6 3.5-5.1 Lvl) [facility] HospitalUrnnfvePXMYZPSHYHBG2211-99-16 21:03:00 Test Item Value Reference Range Interpretation Comments Chloride Lvl (test code = Chloride Lvl) 105 95-109 [facility] HospitalPgkhovcKVKZHGPSVCLW9118-75-47 21:03:00 Test Item Value Reference Range Interpretation Comments CO2 (test code = CO2) 26 24-32 [facility] HospitalVvusvtcHEMXHZOEPGTU8867-10-90 21:03:00 Test Item Value Reference Range Interpretation Comments Calcium Lvl (test code = Calcium Lvl) 9.5 8.5-10.5 [facility] HospitalSucbnvpSDWKHZWFZZPF3015-89-74 21:03:00 Test Item Value Reference Range Interpretation Comments Total Protein (test code = Total 7.2 6.4-8.4 Protein) [facility] HospitalHhqabrbWVNLWFUHAPGF6599-07-34 21:03:00 Test Item Value Reference Range Interpretation Comments Albumin Lvl (test code = Albumin Lvl) 3.4 3.5-5.0 [facility] HospitalTkgcxcfGAQKEREBABBL7051-54-37 21:03:00 Test Item Value Reference Range Interpretation Comments ALT (test code = ALT) 28 See_Comment [Auto mated message] The system which ge nerated this result transmit todd reference range : <=65. The reference range was not used to interpr et this result as kimbreli l/abnormal. [facility] HospitalDcaiaiiFXFLPDAOYASB8894-46-72 21:03:00 Test Item Value Reference Range Interpretation Comments AST (test code = AST) 22 See_Comment [Auto mated message] The system which ge nerated this result transmit todd reference range : <=37. The reference range was not used to interpr et this result as kimberli l/abnormal. [facility] HospitalVqgbygmWLUWSGBUPIFD8740-86-93 21:03:00 Test Item Value Reference Range Interpretation Comments Alk Phos (test code = Alk Phos) 82 39-136 [facility] HospitalUiggatqGBJIKLFZCNCM3278-14-80 21:03:00 Test Item Value Reference Range Interpretation Comments Bili Total (test code = Bili Total) 0.4 0.2-1.3 [facility] HospitalHpkvnmiQZFESCRCNIBJ3947-17-23 21:03:00 Test Item Value Reference Range Interpretation Comments eGFR (test code = eGFR) 29 [facility]IwumnoeJZOMWCCJIV3031-52-82 21:03:00 Test Item Value Reference Range Interpretation Comments WBC (test code = WBC) 11.0 3.7-10.4 [facility] HospitalPlehsptUSRMJVSNQQ3715-73-89 21:03:00 Test Item Value Reference Range Interpretation Comments RBC (test code = RBC) 4.22 4.70-6.10 [facility] HospitalMyghtxmNXRNQDBNHT9225-58-15 21:03:00 Test Item Value Reference Range Interpretation Comments Hgb (test code = Hgb) 13.4 14.0-18.0 [facility] HospitalAkikphdQENSJLEWHY0539-11-95 21:03:00 Test Item Value Reference Range Interpretation Comments Hct (test code = Hct) 40.2 42.0-54.0 [facility] HospitalSfmpwvmMTDXMIZHLN6168-51-81 21:03:00 Test Item Value Reference Range Interpretation Comments MCV (test code = MCV) 95.2 80.0-94.0 [facility] HospitalTimwqbdLQFOPKYYKW1977-89-51 21:03:00 Test Item Value Reference Range Interpretation Comments MCH (test code = MCH) 31.7 pg 27.0-31.0 [facility] HospitalLbdzawdTEVWAXLFDR8219-57-46 21:03:00 Test Item Value Reference Range Interpretation Comments MCHC (test code = MCHC) 33.3 32.0-36.0 [facility] HospitalRonhmhcFUZTCXABSF1622-43-23 21:03:00 Test Item Value Reference Range Interpretation Comments RDW (test code = RDW) 14.3 11.5-14.5 [facility] HospitalXqimoecAVWNQVCORF1542-69-44 21:03:00 Test Item Value Reference Range Interpretation Comments Platelet (test code = Platelet) 286 133-450 [facility] HospitalMniebzkONYXZWRQUE8314-81-47 21:03:00 Test Item Value Reference Range Interpretation Comments MPV (test code = MPV) 8.5 7.4-10.4 [facility] HospitalPqisrfnCLLCCZKEEH3034-76-07 21:03:00 Test Item Value Reference Range Interpretation Comments Segs (test code = Segs) 91.9 45.0-75.0 [facility] HospitalJzxscnkNXUPFCEHUV2033-38-60 21:03:00 Test Item Value Reference Range Interpretation Comments Lymphocytes (test code = Lymphocytes) 5.0 20.0-40.0 [facility] HospitalLqrmtfaQNGKWSVYJN7773-98-79 21:03:00 Test Item Value Reference Range Interpretation Comments Monocytes (test code = Monocytes) 2.4 2.0-12.0 [facility] HospitalXsaoyupBGJFGRPOTC8695-09-21 21:03:00 Test Item Value Reference Range Interpretation Comments Basophils (test code = 0.7 See_Comment [Aut omated message] The Basophils) system which ge nerated this result tra nsmitted reference range : <=1.0. The reference r carolynn was not used to int erpret this result as normal/abnormal . [facility]MzazpvqICWCHUCDLK4643-34-17 21:03:00 Test Item Value Reference Range Interpretation Comments Neutrophils # (test code = Neutrophils 10.1 1.5-8.1 #) [facility] HospitalOzeoqknAEHVLDYKYG6721-01-45 21:03:00 Test Item Value Reference Range Interpretation Comments Lymphocytes # (test code = Lymphocytes 0.5 1.0-5.5 #) [facility] HospitalHgymuhgRTHJTUCMTS9837-78-71 21:03:00 Test Item Value Reference Range Interpretation Comments Monocytes # (test code 0.3 See_Comment [Aut omated message] The = Monocytes #) system which generated this result tra nsmitted reference range : <=0.8. The reference r carolynn was not used to int erpret this result as normal/abnormal . [facility] HospitalXeauwhyPLBCREBQRJ6492-15-35 21:03:00 Test Item Value Reference Range Interpretation Comments Basophils # (test code 0.1 See_Comment [Aut omated message] The = Basophils #) system which generated this result tra nsmitted reference range : <=0.2. The reference r carolynn was not used to int erpret this result as normal/abnormal . [facility]ARS[facility]usAC KQIGMRN1513-54-43 21:03:00 Test Item Value Reference Range Interpretation Comments Troponin-I (test code no gt See_Comment [Auto mated message] The = Troponin-I) system which g enerated this result transmit todd reference range : <=0.40. The reference r carolynn was not used to interpr et this result as kimberli l/abnormal. [facility]CARAC ABOPPOU5761-15-63 21:03:00 Test Item Value Reference Range Interpretation Comments BNP (test code = BNP) 75 [facility] SouthCHEM FBPWM7155-81-77 21:03:00 Test Item Value Reference Range Interpretation Comments Lipase Lvl (test code = Lipase Lvl) 130 73-393 [facility]HpctqrdJALRYPNEMZTS3475-67-65 21:03:00 Test Item Value Reference Range Interpretation Comments AGAP (test code = AGAP) 12.6 10.0-20.0 [facility]OlxrqmsWTKSUYJRRWBN4586-18-63 21:03:00 Test Item Value Reference Range Interpretation Comments B/C Ratio (test code = B/C Ratio) 16 1 6-25 [facility]IprxxccIZNTDXJDLPMK9968-60-63 21:03:00 Test Item Value Reference Range Interpretation Comments Globulin (test code = Globulin) 3.8 2.7-4.2 [facility] HospitalVapdwuaKOWWVCRWSKVT9234-68-38 21:03:00 Test Item Value Reference Range Interpretation Comments A/G Ratio (test code = A/G Ratio) 0.9 1 0.7-1.6 [facility] HospitalBygywdvYFITBNXJXFOT4177-72-85 21:03:00 Test Item Value Reference Range Interpretation Comments Glucose Lvl (test code = Glucose Lvl) 177 70-99 [facility] HospitalPcnirmgWWTQLIHUJEAP6935-12-43 21:03:00 Test Item Value Reference Range Interpretation Comments BUN (test code = BUN) 35 7-22 [facility] HospitalZyrlobxJVEFFERMQGYJ6780-85-51 21:03:00 Test Item Value Reference Range Interpretation Comments Creatinine Lvl (test code = Creatinine 2.24 0.50-1.40 Lvl) [facility] HospitalGdlkpflFSFTYIAPEYUB7790-15-41 21:03:00 Test Item Value Reference Range Interpretation Comments Sodium Lvl (test code = Sodium Lvl) 139 135-145 [facility] HospitalZgzgbkyJSHLFERCEBJQ7409-03-07 21:03:00 Test Item Value Reference Range Interpretation Comments Potassium Lvl (test code = Potassium 4.6 3.5-5.1 Lvl) [facility] HospitalXodnsijBOQZZMRAMOMN2173-57-17 21:03:00 Test Item Value Reference Range Interpretation Comments Chloride Lvl (test code = Chloride Lvl) 105 95-109 [facility] HospitalIruydzsHLSQBXPNEPQC2273-56-63 21:03:00 Test Item Value Reference Range Interpretation Comments CO2 (test code = CO2) 26 24-32 [facility] HospitalEefocjvGZCRXAYLMCVI4378-45-34 21:03:00 Test Item Value Reference Range Interpretation Comments Calcium Lvl (test code = Calcium Lvl) 9.5 8.5-10.5 [facility] HospitalWzfbntqLVERWGBYAQQA2831-49-24 21:03:00 Test Item Value Reference Range Interpretation Comments Total Protein (test code = Total 7.2 6.4-8.4 Protein) [facility] HospitalAfnmptmQOJWFFXMQHBS5728-93-12 21:03:00 Test Item Value Reference Range Interpretation Comments Albumin Lvl (test code = Albumin Lvl) 3.4 3.5-5.0 [facility] HospitalIjrsmzxQLSHAXBCIWIP5003-65-85 21:03:00 Test Item Value Reference Range Interpretation Comments ALT (test code = ALT) 28 See_Comment [Auto mated message] The system which ge nerated this result transmit todd reference range : <=65. The reference range was not used to interpr et this result as kimberli l/abnormal. [facility] HospitalGxebwcjQNYUCCYCISPJ5556-42-45 21:03:00 Test Item Value Reference Range Interpretation Comments AST (test code = AST) 22 See_Comment [Auto mated message] The system which ge nerated this result transmit todd reference range : <=37. The reference range was not used to interpr et this result as kimberli l/abnormal. [facility] HospitalDwcmbwaDJFHUVWOKXFF9739-97-92 21:03:00 Test Item Value Reference Range Interpretation Comments Alk Phos (test code = Alk Phos) 82 39-136 [facility] HospitalFenwkydHTBGTEDMOFHX8490-28-02 21:03:00 Test Item Value Reference Range Interpretation Comments Bili Total (test code = Bili Total) 0.4 0.2-1.3 [facility] HospitalFrqzwjbUKYBNHBGEODL8874-60-47 21:03:00 Test Item Value Reference Range Interpretation Comments eGFR (test code = eGFR) 29 [facility] HospitalWrlepigKFVLCMENYY5366-62-88 21:03:00 Test Item Value Reference Range Interpretation Comments WBC (test code = WBC) 11.0 3.7-10.4 [facility] HospitalMnvrqbwOOMJZVWPSF9534-65-96 21:03:00 Test Item Value Reference Range Interpretation Comments RBC (test code = RBC) 4.22 4.70-6.10 [facility] HospitalEdtevcfHRKNFGGDNF9800-75-46 21:03:00 Test Item Value Reference Range Interpretation Comments Hgb (test code = Hgb) 13.4 14.0-18.0 [facility] HospitalYztnbiiDDQIIJCHRI2121-80-59 21:03:00 Test Item Value Reference Range Interpretation Comments Hct (test code = Hct) 40.2 42.0-54.0 [facility] HospitalIplknfgWMJIWOPWAM4762-05-51 21:03:00 Test Item Value Reference Range Interpretation Comments MCV (test code = MCV) 95.2 80.0-94.0 [facility] HospitalHokgzoiIYGWROKXOO2159-25-74 21:03:00 Test Item Value Reference Range Interpretation Comments MCH (test code = MCH) 31.7 pg 27.0-31.0 [facility] HospitalDoyqtsjPHSTWZZMHF9040-46-04 21:03:00 Test Item Value Reference Range Interpretation Comments MCHC (test code = MCHC) 33.3 32.0-36.0 [facility] HospitalMtsnjegCTLCZWMZOE9287-57-15 21:03:00 Test Item Value Reference Range Interpretation Comments RDW (test code = RDW) 14.3 11.5-14.5 [facility] HospitalGjnzrucTDSUJRZYDP1213-35-34 21:03:00 Test Item Value Reference Range Interpretation Comments Platelet (test code = Platelet) 286 133-450 [facility] HospitalZccdwsdQWROFMRGGG5973-98-79 21:03:00 Test Item Value Reference Range Interpretation Comments MPV (test code = MPV) 8.5 7.4-10.4 [facility] HospitalXmypizqDATNKPIRPO7480-79-67 21:03:00 Test Item Value Reference Range Interpretation Comments Segs (test code = Segs) 91.9 45.0-75.0 [facility] HospitalGlakbfoTLBXVTYYVG2185-68-11 21:03:00 Test Item Value Reference Range Interpretation Comments Lymphocytes (test code = Lymphocytes) 5.0 20.0-40.0 [facility] HospitalJzhxnatTLDRDVEKKB9377-42-91 21:03:00 Test Item Value Reference Range Interpretation Comments Monocytes (test code = Monocytes) 2.4 2.0-12.0 [facility] HospitalXkayvqqYNAIZSQEPL0674-21-99 21:03:00 Test Item Value Reference Range Interpretation Comments Basophils (test code = 0.7 See_Comment [Aut omated message] The Basophils) system which ge nerated this result tra nsmitted reference range : <=1.0. The reference r carolynn was not used to int erpret this result as normal/abnormal . [facility] HospitalQziczhrBBYCHWWJZT2852-54-24 21:03:00 Test Item Value Reference Range Interpretation Comments Neutrophils # (test code = Neutrophils 10.1 1.5-8.1 #) [facility] HospitalUlupsotYQBPWHAWMV2138-13-14 21:03:00 Test Item Value Reference Range Interpretation Comments Lymphocytes # (test code = Lymphocytes 0.5 1.0-5.5 #) [facility] HospitalYkjxzdaAYOJOBCGTE8052-95-18 21:03:00 Test Item Value Reference Range Interpretation Comments Monocytes # (test code 0.3 See_Comment [Aut omated message] The = Monocytes #) system which generated this result tra nsmitted reference range : <=0.8. The reference r carolynn was not used to int erpret this result as normal/abnormal . [facility] SouthNweoidzHHJWVNTCRV2070-30-96 21:03:00 Test Item Value Reference Range Interpretation Comments Basophils # (test code 0.1 See_Comment [Aut omated message] The = Basophils #) system which generated this result tra nsmitted reference range : <=0.2. The reference r carolynn was not used to int erpret this result as normal/abnormal . [facility] SouthCARDIAC YSCBYES3758-80-44 21:03:00 Test Item Value Reference Range Interpretation Comments Troponin-I (test code no gt See_Comment [Auto mated message] The = Troponin-I) system which g enerated this result transmit todd reference range : <=0.40. The reference r carolynn was not used to interpr et this result as kimberli l/abnormal. [facility] KYRRKEN9269-26-74 21:03:00 Test Item Value Reference Range Interpretation Comments BNP (test code = BNP) 75 [facility]CHE[facility] VLWOS7393-08-40 21:03:00 Test Item Value Reference Range Interpretation Comments Lipase Lvl (test code = Lipase Lvl) 130 73-393 [facility] BrookFdairwgCLYWFGVCBGVE6144-37-88 21:03:00 Test Item Value Reference Range Interpretation Comments AGAP (test code = AGAP) 12.6 10.0-20.0 [facility] HospitalKavnzqfBJBFCOCOAHOT3477-93-99 21:03:00 Test Item Value Reference Range Interpretation Comments B/C Ratio (test code = B/C Ratio) 16 1 6-25 [facility] BrookAzznfkmJEFDQFWVOXZO9427-66-26 21:03:00 Test Item Value Reference Range Interpretation Comments Globulin (test code = Globulin) 3.8 2.7-4.2 [facility]ScgkkbvRCCBFACYQREJ2960-31-72 21:03:00 Test Item Value Reference Range Interpretation Comments A/G Ratio (test code = A/G Ratio) 0.9 1 0.7-1.6 [facility]MpgobapFORRBQMFXSFR8055-51-04 21:03:00 Test Item Value Reference Range Interpretation Comments Glucose Lvl (test code = Glucose Lvl) 177 70-99 [facility] BrookQqkjgdkIOTWEIMMWHIZ1210-88-30 21:03:00 Test Item Value Reference Range Interpretation Comments BUN (test code = BUN) 35 7-22 [facility] HospitalSalzjroUKIIKKLYSMSZ4580-85-42 21:03:00 Test Item Value Reference Range Interpretation Comments Creatinine Lvl (test code = Creatinine 2.24 0.50-1.40 Lvl) [facility] HospitalUtxpsemSZOMYZTWQJUU0017-32-05 21:03:00 Test Item Value Reference Range Interpretation Comments Sodium Lvl (test code = Sodium Lvl) 139 135-145 [facility] HospitalZwvctmqFKGDIXRMEVHX7290-81-25 21:03:00 Test Item Value Reference Range Interpretation Comments Potassium Lvl (test code = Potassium 4.6 3.5-5.1 Lvl) [facility] HospitalRskeftrYIWHRKXUIRSC0857-21-61 21:03:00 Test Item Value Reference Range Interpretation Comments Chloride Lvl (test code = Chloride Lvl) 105 95-109 [facility] HospitalRokduuhZQASCXGVPHNT7613-34-66 21:03:00 Test Item Value Reference Range Interpretation Comments CO2 (test code = CO2) 26 24-32 [facility] HospitalIqgbxxlSXSLDRARZOWQ0192-65-88 21:03:00 Test Item Value Reference Range Interpretation Comments Calcium Lvl (test code = Calcium Lvl) 9.5 8.5-10.5 [facility] HospitalRcwcglzUMVHXRAABGEM5784-06-27 21:03:00 Test Item Value Reference Range Interpretation Comments Total Protein (test code = Total 7.2 6.4-8.4 Protein) [facility] HospitalRpqofalXGJLIBVFKGTZ6530-78-70 21:03:00 Test Item Value Reference Range Interpretation Comments Albumin Lvl (test code = Albumin Lvl) 3.4 3.5-5.0 [facility] HospitalWvlkjrlFBAAJOOGVDTS1354-95-85 21:03:00 Test Item Value Reference Range Interpretation Comments ALT (test code = ALT) 28 See_Comment [Auto mated message] The system which ge nerated this result transmit todd reference range : <=65. The reference range was not used to interpr et this result as kimberli l/abnormal. [facility] HospitalTnbznnlPLSWLUEIZULG4606-12-05 21:03:00 Test Item Value Reference Range Interpretation Comments AST (test code = AST) 22 See_Comment [Auto mated message] The system which ge nerated this result transmit todd reference range : <=37. The reference range was not used to interpr et this result as kimberli l/abnormal. [facility] HospitalVlsxaecBGHOSPTNOLGQ8497-48-51 21:03:00 Test Item Value Reference Range Interpretation Comments Alk Phos (test code = Alk Phos) 82 39-136 [facility] HospitalBiwzndmZXWVTZTZBUUD4604-05-65 21:03:00 Test Item Value Reference Range Interpretation Comments Bili Total (test code = Bili Total) 0.4 0.2-1.3 [facility] HospitalOwucbnhYAIBUNFYXETP6802-40-74 21:03:00 Test Item Value Reference Range Interpretation Comments eGFR (test code = eGFR) 29 [facility] HospitalVkwfwucOGRHFUTDMV2291-36-56 21:03:00 Test Item Value Reference Range Interpretation Comments WBC (test code = WBC) 11.0 3.7-10.4 [facility] HospitalOzsggtbYDPCUYBTAY0153-43-30 21:03:00 Test Item Value Reference Range Interpretation Comments RBC (test code = RBC) 4.22 4.70-6.10 [facility] HospitalNkktyiuHTGJXQKTKH5283-83-28 21:03:00 Test Item Value Reference Range Interpretation Comments Hgb (test code = Hgb) 13.4 14.0-18.0 [facility] HospitalGecjmvoEDDJXAZWZA8655-96-80 21:03:00 Test Item Value Reference Range Interpretation Comments Hct (test code = Hct) 40.2 42.0-54.0 [facility] HospitalZobukbwPTOKKXKUKR4206-20-27 21:03:00 Test Item Value Reference Range Interpretation Comments MCV (test code = MCV) 95.2 80.0-94.0 [facility] HospitalJohccujIPMCJQSIUC4535-27-93 21:03:00 Test Item Value Reference Range Interpretation Comments MCH (test code = MCH) 31.7 pg 27.0-31.0 [facility] HospitalGyqrawfJPZZMHGYRF4431-12-32 21:03:00 Test Item Value Reference Range Interpretation Comments MCHC (test code = MCHC) 33.3 32.0-36.0 [facility] HospitalVimqmvrNTXVRBFNPH3105-11-66 21:03:00 Test Item Value Reference Range Interpretation Comments RDW (test code = RDW) 14.3 11.5-14.5 [facility] HospitalSriawptUKZKLXLALH8850-06-73 21:03:00 Test Item Value Reference Range Interpretation Comments Platelet (test code = Platelet) 286 133-450 [facility] HospitalTnbnmbiRWLGEXYMHP5385-52-80 21:03:00 Test Item Value Reference Range Interpretation Comments MPV (test code = MPV) 8.5 7.4-10.4 [facility] HospitalXrjoztkUHMCZUIYUE7127-07-95 21:03:00 Test Item Value Reference Range Interpretation Comments Segs (test code = Segs) 91.9 45.0-75.0 [facility] HospitalPjlaegpOKPTRPIOCW7921-14-22 21:03:00 Test Item Value Reference Range Interpretation Comments Lymphocytes (test code = Lymphocytes) 5.0 20.0-40.0 [facility] HospitalYfyqfuwPPCTRUVRFY3880-53-05 21:03:00 Test Item Value Reference Range Interpretation Comments Monocytes (test code = Monocytes) 2.4 2.0-12.0 [facility] HospitalLcipwpbTVAFGJTKFR6077-80-24 21:03:00 Test Item Value Reference Range Interpretation Comments Basophils (test code = 0.7 See_Comment [Aut omated message] The Basophils) system which ge nerated this result tra nsmitted reference range : <=1.0. The reference r carolynn was not used to int erpret this result as normal/abnormal . [facility] HospitalFpwtucwGBUPBWRGSJ6228-67-78 21:03:00 Test Item Value Reference Range Interpretation Comments Neutrophils # (test code = Neutrophils 10.1 1.5-8.1 #) [facility] HospitalOkpzxdtZSYKFVPSAG8597-81-57 21:03:00 Test Item Value Reference Range Interpretation Comments Lymphocytes # (test code = Lymphocytes 0.5 1.0-5.5 #) [facility] HospitalHdrnwhxXLXLOWQZHC5024-04-14 21:03:00 Test Item Value Reference Range Interpretation Comments Monocytes # (test code 0.3 See_Comment [Aut omated message] The = Monocytes #) system which generated this result tra nsmitted reference range : <=0.8. The reference r carolynn was not used to int erpret this result as normal/abnormal . [facility] HospitalYvqhkoaOHADRQORDD0068-62-14 21:03:00 Test Item Value Reference Range Interpretation Comments Basophils # (test code 0.1 See_Comment [Aut omated message] The = Basophils #) system which generated this result tra nsmitted reference range : <=0.2. The reference r carolynn was not used to int erpret this result as normal/abnormal . [facility]ARD[facility]ITALVDECLQB8808-00-96 21:03:00 Test Item Value Reference Range Interpretation Comments Troponin-I (test code no gt See_Comment [Auto mated message] The = Troponin-I) system which g enerated this result transmit todd reference range : <=0.40. The reference r carolynn was not used to interpr et this result as kimberli l/abnormal. [facility]ARD[facility] ZJANIMC7526-46-79 21:03:00 Test Item Value Reference Range Interpretation Comments BNP (test code = BNP) 75 [facility]CHEM GUATG9087-09-70 21:03:00 Test Item Value Reference Range Interpretation Comments Lipase Lvl (test code = Lipase Lvl) 130 73-393 [facility] BrookGpywyppPEQIXELKBJFR3085-00-53 21:03:00 Test Item Value Reference Range Interpretation Comments AGAP (test code = AGAP) 12.6 10.0-20.0 [facility]MlxtwifJTXAQKJEODQA2200-47-90 21:03:00 Test Item Value Reference Range Interpretation Comments B/C Ratio (test code = B/C Ratio) 16 1 6-25 [facility] HospitalZdiqihlLNBXPDMCVJBE3240-81-76 21:03:00 Test Item Value Reference Range Interpretation Comments Globulin (test code = Globulin) 3.8 2.7-4.2 [facility] HospitalCpvepssJWMCUVHKJCXN5514-02-19 21:03:00 Test Item Value Reference Range Interpretation Comments A/G Ratio (test code = A/G Ratio) 0.9 1 0.7-1.6 [facility] HospitalVisbkzdFDZBTRSOSTCK4096-23-60 21:03:00 Test Item Value Reference Range Interpretation Comments Glucose Lvl (test code = Glucose Lvl) 177 70-99 [facility] HospitalRkjvzvcYOXYKVZCLOPZ2763-48-15 21:03:00 Test Item Value Reference Range Interpretation Comments BUN (test code = BUN) 35 7-22 [facility] HospitalRzohvflRUNKYTJRUXYR7286-54-71 21:03:00 Test Item Value Reference Range Interpretation Comments Creatinine Lvl (test code = Creatinine 2.24 0.50-1.40 Lvl) [facility] HospitalTieqoaaBVNUEXRZVSCW7025-76-86 21:03:00 Test Item Value Reference Range Interpretation Comments Sodium Lvl (test code = Sodium Lvl) 139 135-145 [facility] ClubLogzuupHWHEKXTUQGFI0841-34-56 21:03:00 Test Item Value Reference Range Interpretation Comments Potassium Lvl (test code = Potassium 4.6 3.5-5.1 Lvl) [facility] HospitalEfuifmxVJOLHHZMGDDV0648-53-97 21:03:00 Test Item Value Reference Range Interpretation Comments Chloride Lvl (test code = Chloride Lvl) 105 95-109 [facility] HospitalBvkcalaFHUCBOAJZNWK2594-00-66 21:03:00 Test Item Value Reference Range Interpretation Comments CO2 (test code = CO2) 26 24-32 [facility] HospitalFxfzgsrFBZQFDPTOUYQ3605-20-92 21:03:00 Test Item Value Reference Range Interpretation Comments Calcium Lvl (test code = Calcium Lvl) 9.5 8.5-10.5 [facility] HospitalEqeetgeJNQZZJIVZTUP7055-65-07 21:03:00 Test Item Value Reference Range Interpretation Comments Total Protein (test code = Total 7.2 6.4-8.4 Protein) [facility] HospitalGhcywjaCKPTEMLYLLEZ4884-87-34 21:03:00 Test Item Value Reference Range Interpretation Comments Albumin Lvl (test code = Albumin Lvl) 3.4 3.5-5.0 [facility] HospitalVobrxzjTCANOZXLMZFN0641-26-16 21:03:00 Test Item Value Reference Range Interpretation Comments ALT (test code = ALT) 28 See_Comment [Auto mated message] The system which ge nerated this result transmit todd reference range : <=65. The reference range was not used to interpr et this result as kimberli l/abnormal. [facility] HospitalVuydbwcSCGBGBERUSFY1189-05-14 21:03:00 Test Item Value Reference Range Interpretation Comments AST (test code = AST) 22 See_Comment [Auto mated message] The system which ge nerated this result transmit todd reference range : <=37. The reference range was not used to interpr et this result as kimberli l/abnormal. [facility] HospitalPppdwypPQXWDEBWTOFY9376-95-23 21:03:00 Test Item Value Reference Range Interpretation Comments Alk Phos (test code = Alk Phos) 82 39-136 [facility] HospitalDlzkfpzOIMFHWPFHQXH5645-84-93 21:03:00 Test Item Value Reference Range Interpretation Comments Bili Total (test code = Bili Total) 0.4 0.2-1.3 [facility] HospitalEjsojcxJIVJQVJACOSA9926-03-45 21:03:00 Test Item Value Reference Range Interpretation Comments eGFR (test code = eGFR) 29 [facility] SouthWxieseiQNHTNNRUPS7755-53-83 21:03:00 Test Item Value Reference Range Interpretation Comments WBC (test code = WBC) 11.0 3.7-10.4 [facility] HospitalGiypqdbFQQYAYCLRF0975-37-69 21:03:00 Test Item Value Reference Range Interpretation Comments RBC (test code = RBC) 4.22 4.70-6.10 [facility] HospitalYosmrwjDXBDAXCPLU7715-24-79 21:03:00 Test Item Value Reference Range Interpretation Comments Hgb (test code = Hgb) 13.4 14.0-18.0 [facility] HospitalGuyfylaEKMNOHCOLJ9807-87-15 21:03:00 Test Item Value Reference Range Interpretation Comments Hct (test code = Hct) 40.2 42.0-54.0 [facility] HospitalYwifrpjHBNJRJWUSH8875-31-32 21:03:00 Test Item Value Reference Range Interpretation Comments MCV (test code = MCV) 95.2 80.0-94.0 [facility] HospitalPkqpjeoKKSYXRZNHK6891-24-57 21:03:00 Test Item Value Reference Range Interpretation Comments MCH (test code = MCH) 31.7 pg 27.0-31.0 [facility] [facility]ZJDNVZDVA8325[facility] 21:03[facility]00 Test Item Value Reference Range Interpretation Comments MCHC (test code = MCHC) 33.3 32.0-36.0 [facility]VdqdccrAZYJLTHHZS0614-60-91 21:03:00 Test Item Value Reference Range Interpretation Comments RDW (test code = RDW) 14.3 11.5-14.5 [facility] HospitalRlswpthLBVJKNMRHS6203-31-38 21:03:00 Test Item Value Reference Range Interpretation Comments Platelet (test code = Platelet) 286 133-450 [facility] HospitalIodjzlhVAQGZIVNYZ9106-23-00 21:03:00 Test Item Value Reference Range Interpretation Comments MPV (test code = MPV) 8.5 7.4-10.4 [facility] HospitalQfpyexuLJEUFFCHSS5530-79-71 21:03:00 Test Item Value Reference Range Interpretation Comments Segs (test code = Segs) 91.9 45.0-75.0 [facility] HospitalFcivcpxICNRARPSBO9548-74-84 21:03:00 Test Item Value Reference Range Interpretation Comments Lymphocytes (test code = Lymphocytes) 5.0 20.0-40.0 [facility] HospitalApzyarpEMHWMMPFFE6019-26-32 21:03:00 Test Item Value Reference Range Interpretation Comments Monocytes (test code = Monocytes) 2.4 2.0-12.0 [facility]XhhhxxmNPNCWIYSGK9479-21-53 21:03:00 Test Item Value Reference Range Interpretation Comments Basophils (test code = 0.7 See_Comment [Aut omated message] The Basophils) system which ge nerated this result tra nsmitted reference range : <=1.0. The reference r carolynn was not used to int erpret this result as normal/abnormal . [facility] HospitalCvrwpwsOBNPCEITHJ4616-15-16 21:03:00 Test Item Value Reference Range Interpretation Comments Neutrophils # (test code = Neutrophils 10.1 1.5-8.1 #) [facility] HospitalXkftdkbYVPHSERVJJ5801-53-72 21:03:00 Test Item Value Reference Range Interpretation Comments Lymphocytes # (test code = Lymphocytes 0.5 1.0-5.5 #) [facility] HospitalOcrgkhnZUOSWTCAAX8774-69-46 21:03:00 Test Item Value Reference Range Interpretation Comments Monocytes # (test code 0.3 See_Comment [Aut omated message] The = Monocytes #) system which generated this result tra nsmitted reference range : <=0.8. The reference r carolynn was not used to int erpret this result as normal/abnormal . [facility] HospitalRanensjCIXFKCLQJR6749-61-69 21:03:00 Test Item Value Reference Range Interpretation Comments Basophils # (test code 0.1 See_Comment [Aut omated message] The = Basophils #) system which generated this result tra nsmitted reference range : <=0.2. The reference r carolynn was not used to int erpret this result as normal/abnormal . [facility] ZTVVJHP4796-73-40 21:03:00 Test Item Value Reference Range Interpretation Comments Troponin-I (test code = Troponin-I) no gt <=0.40 [facility] XRJNMOB0364-58-65 21:03:00 Test Item Value Reference Range Interpretation Comments BNP (test code = BNP) 75 [facility] ZJVSH0681-30-52 21:03:00 Test Item Value Reference Range Interpretation Comments Lipase Lvl (test code = Lipase Lvl) 130 73-393 [facility]PszrdotKPJYPMKVGOEN5480-00-97 21:03:00 Test Item Value Reference Range Interpretation Comments AGAP (test code = AGAP) 12.6 10.0-20.0 [facility]MtijrzxCYHPTWIGKAPJ2612-06-81 21:03:00 Test Item Value Reference Range Interpretation Comments B/C Ratio (test code = B/C Ratio) 16 1 6-25 [facility]OsqbffoAAPOMTYOPFOZ2505-70-90 21:03:00 Test Item Value Reference Range Interpretation Comments Globulin (test code = Globulin) 3.8 2.7-4.2 [facility]XdwozvwJZGWPIELPUMT9310-30-75 21:03:00 Test Item Value Reference Range Interpretation Comments A/G Ratio (test code = A/G Ratio) 0.9 1 0.7-1.6 [facility] HospitalRtkschjVTUMWQYMDLLP2304-16-34 21:03:00 Test Item Value Reference Range Interpretation Comments Glucose Lvl (test code = Glucose Lvl) 177 70-99 [facility] HospitalUhdqzguDEKGOCVMSTPP9603-23-25 21:03:00 Test Item Value Reference Range Interpretation Comments BUN (test code = BUN) 35 7-22 [facility] HospitalTlgwwdfROOSYOJMFVCD1875-86-84 21:03:00 Test Item Value Reference Range Interpretation Comments Creatinine Lvl (test code = Creatinine 2.24 0.50-1.40 Lvl) [facility] HospitalUqyvxdxOQPPSMGXZDRO9861-53-12 21:03:00 Test Item Value Reference Range Interpretation Comments Sodium Lvl (test code = Sodium Lvl) 139 135-145 [facility] HospitalAqhreteZBOVUMXBGGDF2945-16-41 21:03:00 Test Item Value Reference Range Interpretation Comments Potassium Lvl (test code = Potassium 4.6 3.5-5.1 Lvl) [facility] HospitalYowxlixMPLLKCMHABJP4664-03-45 21:03:00 Test Item Value Reference Range Interpretation Comments Chloride Lvl (test code = Chloride Lvl) 105 95-109 [facility] HospitalUcewkrmJCUXHKVARTOC1459-39-24 21:03:00 Test Item Value Reference Range Interpretation Comments CO2 (test code = CO2) 26 24-32 [facility] HospitalGqdxfzvKJXVFNFQAATS0887-36-58 21:03:00 Test Item Value Reference Range Interpretation Comments Calcium Lvl (test code = Calcium Lvl) 9.5 8.5-10.5 [facility] HospitalYgxhvisIXEZLMHGMHKV6113-87-94 21:03:00 Test Item Value Reference Range Interpretation Comments Total Protein (test code = Total 7.2 6.4-8.4 Protein) [facility] HospitalMrezzonJGDKVIRWJLIU6851-44-47 21:03:00 Test Item Value Reference Range Interpretation Comments Albumin Lvl (test code = Albumin Lvl) 3.4 3.5-5.0 [facility] HospitalZfciscbNGPBSHWIVULG4695-64-25 21:03:00 Test Item Value Reference Range Interpretation Comments ALT (test code = ALT) 28 <=65 [facility] HospitalKsulrcyTVCFAXYSRDYT9959-89-19 21:03:00 Test Item Value Reference Range Interpretation Comments AST (test code = AST) 22 <=37 [facility] HospitalQopadsgWFYRYUREVIQS1432-09-93 21:03:00 Test Item Value Reference Range Interpretation Comments Alk Phos (test code = Alk Phos) 82 39-136 [facility] HospitalDprlnvlGSWFMKQXZNKY4335-34-74 21:03:00 Test Item Value Reference Range Interpretation Comments Bili Total (test code = Bili Total) 0.4 0.2-1.3 [facility] HospitalFelrghdSLNGPNCAHRXJ0484-69-00 21:03:00 Test Item Value Reference Range Interpretation Comments eGFR (test code = eGFR) 29 [facility] HospitalBiqzpygGCHRUZSMYY4952-43-23 21:03:00 Test Item Value Reference Range Interpretation Comments WBC (test code = WBC) 11.0 3.7-10.4 [facility] HospitalDkaifhvKNMTXUCQZE1782-09-70 21:03:00 Test Item Value Reference Range Interpretation Comments RBC (test code = RBC) 4.22 4.70-6.10 [facility] HospitalNanuhlgFNQJUGPQUY0772-60-33 21:03:00 Test Item Value Reference Range Interpretation Comments Hgb (test code = Hgb) 13.4 14.0-18.0 [facility] HospitalLkotqazPHTVCEKNSH3190-31-20 21:03:00 Test Item Value Reference Range Interpretation Comments Hct (test code = Hct) 40.2 42.0-54.0 [facility] HospitalNprkhxcOMIFAUIMTS5880-53-06 21:03:00 Test Item Value Reference Range Interpretation Comments MCV (test code = MCV) 95.2 80.0-94.0 [facility] HospitalFkmqfzqCIRLXWWHZD0855-41-66 21:03:00 Test Item Value Reference Range Interpretation Comments MCH (test code = MCH) 31.7 pg 27.0-31.0 [facility] HospitalBwavutjUJSTGJLFWP0945-99-62 21:03:00 Test Item Value Reference Range Interpretation Comments MCHC (test code = MCHC) 33.3 32.0-36.0 [facility] HospitalSeccexoBCFOVHOLYZ6807-33-01 21:03:00 Test Item Value Reference Range Interpretation Comments RDW (test code = RDW) 14.3 11.5-14.5 [facility] HospitalWfjxwdpDEOVXXCJRH0920-02-88 21:03:00 Test Item Value Reference Range Interpretation Comments Platelet (test code = Platelet) 286 133-450 [facility] HospitalKngrhvrTGRRYHOOYF4135-34-20 21:03:00 Test Item Value Reference Range Interpretation Comments MPV (test code = MPV) 8.5 7.4-10.4 [facility] HospitalJjqjcwdKOPLNAVESM7730-60-47 21:03:00 Test Item Value Reference Range Interpretation Comments Segs (test code = Segs) 91.9 45.0-75.0 [facility] HospitalPwxxgtlDKQEKGHQYP3555-26-58 21:03:00 Test Item Value Reference Range Interpretation Comments Lymphocytes (test code = Lymphocytes) 5.0 20.0-40.0 [facility] HospitalGwjznxxVPDJAWXZOP4651-87-86 21:03:00 Test Item Value Reference Range Interpretation Comments Monocytes (test code = Monocytes) 2.4 2.0-12.0 [facility] HospitalGginurrZXZVXYTUNB2484-92-24 21:03:00 Test Item Value Reference Range Interpretation Comments Basophils (test code = Basophils) 0.7 <=1.0 [facility] HospitalPmpdlzqWUIDWNEBIN0206-49-89 21:03:00 Test Item Value Reference Range Interpretation Comments Neutrophils # (test code = Neutrophils 10.1 1.5-8.1 #) [facility] HospitalGijnahyGRYPMIKMHC3648-48-83 21:03:00 Test Item Value Reference Range Interpretation Comments Lymphocytes # (test code = Lymphocytes 0.5 1.0-5.5 #) [facility] HospitalGtojjtiVSVJUXYKTA7002-26-65 21:03:00 Test Item Value Reference Range Interpretation Comments Monocytes # (test code = Monocytes #) 0.3 <=0.8 [facility] HospitalSxinnssXMNZBQKVFM3827-52-35 21:03:00 Test Item Value Reference Range Interpretation Comments Basophils # (test code = Basophils #) 0.1 <=0.[address] [facility] EMILPVF0468-99-83 21:03:00 Test Item Value Reference Range Interpretation Comments Troponin-I (test code = Troponin-I) no gt <=0.40 [facility] SJYKRNO9778-41-74 21:03:00 Test Item Value Reference Range Interpretation Comments BNP (test code = BNP) 75 [facility]annCHEM JXTYL5068-45-27 21:03:00 Test Item Value Reference Range Interpretation Comments Lipase Lvl (test code = Lipase Lvl) 130 73-393 [facility] HospitalSdmeoewUBXHWGCCAJJO3291-49-69 21:03:00 Test Item Value Reference Range Interpretation Comments AGAP (test code = AGAP) 12.6 10.0-20.0 [facility] HospitalRnjayqyYDUWRSRFQPRV7157-43-57 21:03:00 Test Item Value Reference Range Interpretation Comments B/C Ratio (test code = B/C Ratio) 16 1 6-25 [facility] HospitalMvhgafaYRVPKWOCRVUN2579-55-02 21:03:00 Test Item Value Reference Range Interpretation Comments Globulin (test code = Globulin) 3.8 2.7-4.2 [facility] HospitalGpxwucaSYRBFLAEPKVY0219-10-57 21:03:00 Test Item Value Reference Range Interpretation Comments A/G Ratio (test code = A/G Ratio) 0.9 1 0.7-1.6 [facility] HospitalGglvljyHKZKEDFYNJSK4331-10-14 21:03:00 Test Item Value Reference Range Interpretation Comments Glucose Lvl (test code = Glucose Lvl) 177 70-99 [facility] HospitalGypxzvsTDVATQBAWBSW5811-60-31 21:03:00 Test Item Value Reference Range Interpretation Comments BUN (test code = BUN) 35 7-22 [facility] HospitalHnkzhsfODHYWJESMLWM9085-65-65 21:03:00 Test Item Value Reference Range Interpretation Comments Creatinine Lvl (test code = Creatinine 2.24 0.50-1.40 Lvl) [facility] HospitalYtnzecxUTVHHQGFERPY3387-63-95 21:03:00 Test Item Value Reference Range Interpretation Comments Sodium Lvl (test code = Sodium Lvl) 139 135-145 [facility] HospitalOjwwufzWFJSWXSPEZWI6449-37-46 21:03:00 Test Item Value Reference Range Interpretation Comments Potassium Lvl (test code = Potassium 4.6 3.5-5.1 Lvl) [facility]HttpocjTWASQOEUSOKG4117-97-90 21:03:00 Test Item Value Reference Range Interpretation Comments Chloride Lvl (test code = Chloride Lvl) 105 95-109 [facility] HospitalTaewzolZOXGTHOQWLHF4508-14-82 21:03:00 Test Item Value Reference Range Interpretation Comments CO2 (test code = CO2) 26 24-32 [facility] HospitalTrqjkbkGHQTNBOVSAWD8629-68-73 21:03:00 Test Item Value Reference Range Interpretation Comments Calcium Lvl (test code = Calcium Lvl) 9.5 8.5-10.5 [facility] HospitalFdoxjrkTHNHJBSZTABS3876-79-76 21:03:00 Test Item Value Reference Range Interpretation Comments Total Protein (test code = Total 7.2 6.4-8.4 Protein) [facility] HospitalGiqxhaxNKXJOHRTSRSG3354-09-49 21:03:00 Test Item Value Reference Range Interpretation Comments Albumin Lvl (test code = Albumin Lvl) 3.4 3.5-5.0 [facility] HospitalTiigopaDPEQAFZYRSYD2634-14-88 21:03:00 Test Item Value Reference Range Interpretation Comments ALT (test code = ALT) 28 <=65 [facility] HospitalDsodmniPDHMSERJEWKC9063-39-74 21:03:00 Test Item Value Reference Range Interpretation Comments AST (test code = AST) 22 <=37 [facility] HospitalIuvazwoWVOPPHASANIY9624-24-32 21:03:00 Test Item Value Reference Range Interpretation Comments Alk Phos (test code = Alk Phos) 82 39-136 [facility] HospitalFsszbrqTWTTGFDNKITI6580-73-91 21:03:00 Test Item Value Reference Range Interpretation Comments Bili Total (test code = Bili Total) 0.4 0.2-1.3 [facility] HospitalSbreutuXDCMAEFHPHBO5767-31-62 21:03:00 Test Item Value Reference Range Interpretation Comments eGFR (test code = eGFR) 29 [facility] HospitalVfkwzxqMUAQFYHIGA1097-97-53 21:03:00 Test Item Value Reference Range Interpretation Comments WBC (test code = WBC) 11.0 3.7-10.4 [facility] HospitalOokihwuACSJCRAMVK8259-76-16 21:03:00 Test Item Value Reference Range Interpretation Comments RBC (test code = RBC) 4.22 4.70-6.10 [facility] HospitalXiiimliSPFAZOEFVY1363-76-10 21:03:00 Test Item Value Reference Range Interpretation Comments Hgb (test code = Hgb) 13.4 14.0-18.0 [facility] HospitalXgbouszEYWARKXQZE6872-98-90 21:03:00 Test Item Value Reference Range Interpretation Comments Hct (test code = Hct) 40.2 42.0-54.0 [facility] HospitalHstklroSLOOGXIJYY0532-95-17 21:03:00 Test Item Value Reference Range Interpretation Comments MCV (test code = MCV) 95.2 80.0-94.0 [facility] HospitalHprnobdIXQXEJIVQA3736-73-25 21:03:00 Test Item Value Reference Range Interpretation Comments MCH (test code = MCH) 31.7 pg 27.0-31.0 [facility] HospitalWwaxwmqDOIEZGMAFW9457-19-71 21:03:00 Test Item Value Reference Range Interpretation Comments MCHC (test code = MCHC) 33.3 32.0-36.0 [facility] HospitalHijlgfaAHFQICSXMP2680-83-12 21:03:00 Test Item Value Reference Range Interpretation Comments RDW (test code = RDW) 14.3 11.5-14.5 [facility] HospitalGaxpfvhQVBYSIFTZU4600-19-46 21:03:00 Test Item Value Reference Range Interpretation Comments Platelet (test code = Platelet) 286 133-450 [facility] HospitalSjvxuauSKHUIURTRI7979-12-52 21:03:00 Test Item Value Reference Range Interpretation Comments MPV (test code = MPV) 8.5 7.4-10.4 [facility] HospitalAkdoztnDYRXXCMNCN5291-26-30 21:03:00 Test Item Value Reference Range Interpretation Comments Segs (test code = Segs) 91.9 45.0-75.0 [facility] HospitalAcacwbvZUUTITKOMV3330-26-48 21:03:00 Test Item Value Reference Range Interpretation Comments Lymphocytes (test code = Lymphocytes) 5.0 20.0-40.0 [facility] HospitalYaompxhZITPYTLLGB5229-72-14 21:03:00 Test Item Value Reference Range Interpretation Comments Monocytes (test code = Monocytes) 2.4 2.0-12.0 [facility] HospitalEpseymhUVRZTKNWMH9463-72-96 21:03:00 Test Item Value Reference Range Interpretation Comments Basophils (test code = Basophils) 0.7 <=1.0 [facility] HospitalHqijijmMQVHLKPDQH7815-86-88 21:03:00 Test Item Value Reference Range Interpretation Comments Neutrophils # (test code = Neutrophils 10.1 1.5-8.1 #) [facility] HospitalEmndrlpFATNNWJGOM0270-42-37 21:03:00 Test Item Value Reference Range Interpretation Comments Lymphocytes # (test code = Lymphocytes 0.5 1.0-5.5 #) [facility] HospitalSkuwgqjJCPDPIFMHD2274-74-23 21:03:00 Test Item Value Reference Range Interpretation Comments Monocytes # (test code = Monocytes #) 0.3 <=0.8 [facility] SouthNcvfhbkSPCNTUSOPE6686-67-25 21:03:00 Test Item Value Reference Range Interpretation Comments Basophils # (test code = Basophils #) 0.1 <=0.2 [facility] UPBULWR6330-39-74 21:03:00 Test Item Value Reference Range Interpretation Comments Troponin-I (test code = Troponin-I) no gt <=0.40 [facility]CARAC PWHZUPZ1680-53-98 21:03:00 Test Item Value Reference Range Interpretation Comments BNP (test code = BNP) 75 [facility] SVRWX4116-40-75 21:03:00 Test Item Value Reference Range Interpretation Comments Lipase Lvl (test code = Lipase Lvl) 130 73-393 [facility] HospitalJmaxetmKZVJHMPDORQK9488-92-79 21:03:00 Test Item Value Reference Range Interpretation Comments AGAP (test code = AGAP) 12.6 10.0-20.0 [facility] HospitalKhfbcutCOPWXBGBRWJJ4633-06-86 21:03:00 Test Item Value Reference Range Interpretation Comments B/C Ratio (test code = B/C Ratio) 16 1 6-25 [facility]LnuunhnOCVRWYCGCLNX4141-75-49 21:03:00 Test Item Value Reference Range Interpretation Comments Globulin (test code = Globulin) 3.8 2.7-4.2 [facility] HospitalFltgfylYXXJYSBHJIYB6591-02-11 21:03:00 Test Item Value Reference Range Interpretation Comments A/G Ratio (test code = A/G Ratio) 0.9 1 0.7-1.6 [facility] HospitalYvcbykjFSDUVIIFYRDS7896-47-00 21:03:00 Test Item Value Reference Range Interpretation Comments Glucose Lvl (test code = Glucose Lvl) 177 70-99 [facility] BrookWaulctqMUWWFAZUYJEB7587-96-14 21:03:00 Test Item Value Reference Range Interpretation Comments BUN (test code = BUN) 35 7-22 [facility] HospitalHiszvblJQYFLXNCLVDC5705-26-67 21:03:00 Test Item Value Reference Range Interpretation Comments Creatinine Lvl (test code = Creatinine 2.24 0.50-1.40 Lvl) [facility]XrzkkolDMTGKDOQPXZW4939-37-18 21:03:00 Test Item Value Reference Range Interpretation Comments Sodium Lvl (test code = Sodium Lvl) 139 135-145 [facility]QmtyhklURSTSRPNNNZK0781-74-19 21:03:00 Test Item Value Reference Range Interpretation Comments Potassium Lvl (test code = Potassium 4.6 3.5-5.1 Lvl) [facility] HospitalLwnywxeGOLNMZQKTZBP7459-58-89 21:03:00 Test Item Value Reference Range Interpretation Comments Chloride Lvl (test code = Chloride Lvl) 105 95-109 [facility] HospitalUpnkpyqQSAIDXJJACVR8847-83-97 21:03:00 Test Item Value Reference Range Interpretation Comments CO2 (test code = CO2) 26 24-32 [facility] HospitalTpjssplJUBMIODGHZJY4840-17-22 21:03:00 Test Item Value Reference Range Interpretation Comments Calcium Lvl (test code = Calcium Lvl) 9.5 8.5-10.5 [facility] HospitalCyujaulTABRRDCUWKUG3456-91-08 21:03:00 Test Item Value Reference Range Interpretation Comments Total Protein (test code = Total 7.2 6.4-8.4 Protein) [facility] HospitalGsmhvviKNOCUVDQFVJL5468-03-93 21:03:00 Test Item Value Reference Range Interpretation Comments Albumin Lvl (test code = Albumin Lvl) 3.4 3.5-5.0 [facility] HospitalLkzmfraCRZHAFEAILSK3902-21-61 21:03:00 Test Item Value Reference Range Interpretation Comments ALT (test code = ALT) 28 <=65 [facility] HospitalNwolyooJHXIUDOBKRCP4665-92-71 21:03:00 Test Item Value Reference Range Interpretation Comments AST (test code = AST) 22 <=37 [facility] HospitalQqpxgpnQZWALGHJZHPH0646-54-27 21:03:00 Test Item Value Reference Range Interpretation Comments Alk Phos (test code = Alk Phos) 82 39-136 [facility] HospitalFjguifwPLNQZAJLONRS6990-47-35 21:03:00 Test Item Value Reference Range Interpretation Comments Bili Total (test code = Bili Total) 0.4 0.2-1.3 [facility] HospitalAlimfstGOKOIFDXNYRU3085-00-50 21:03:00 Test Item Value Reference Range Interpretation Comments eGFR (test code = eGFR) 29 [facility] HospitalVxdmommPPCKJPSMBH5562-35-80 21:03:00 Test Item Value Reference Range Interpretation Comments WBC (test code = WBC) 11.0 3.7-10.4 [facility] HospitalMiorratQDYNZEKMUV0792-85-64 21:03:00 Test Item Value Reference Range Interpretation Comments RBC (test code = RBC) 4.22 4.70-6.10 [facility] HospitalGgjbetjAWVAMSNTWF5511-13-50 21:03:00 Test Item Value Reference Range Interpretation Comments Hgb (test code = Hgb) 13.4 14.0-18.0 [facility] HospitalAwojcrsWSCGZHCARH6725-61-42 21:03:00 Test Item Value Reference Range Interpretation Comments Hct (test code = Hct) 40.2 42.0-54.0 [facility] HospitalUbeblghTTMDVGTWNF7990-27-97 21:03:00 Test Item Value Reference Range Interpretation Comments MCV (test code = MCV) 95.2 80.0-94.0 [facility] HospitalBsvvnypSIJCPFCMQZ3519-63-69 21:03:00 Test Item Value Reference Range Interpretation Comments MCH (test code = MCH) 31.7 pg 27.0-31.0 [facility] HospitalXyqfqnrJROLTKWDVA6532-71-76 21:03:00 Test Item Value Reference Range Interpretation Comments MCHC (test code = MCHC) 33.3 32.0-36.0 [facility] HospitalRtipbyeJGUEZUTPXU9625-77-99 21:03:00 Test Item Value Reference Range Interpretation Comments RDW (test code = RDW) 14.3 11.5-14.5 [facility] HospitalYhoguczWBJKHUYITU4586-12-75 21:03:00 Test Item Value Reference Range Interpretation Comments Platelet (test code = Platelet) 286 133-450 [facility] HospitalHntopebTAIGFSNCVF2369-29-33 21:03:00 Test Item Value Reference Range Interpretation Comments MPV (test code = MPV) 8.5 7.4-10.4 [facility] HospitalBfkiideCQZFKOETZA4382-10-04 21:03:00 Test Item Value Reference Range Interpretation Comments Segs (test code = Segs) 91.9 45.0-75.0 [facility] HospitalQxlayhnARLIJCBWJK1160-76-73 21:03:00 Test Item Value Reference Range Interpretation Comments Lymphocytes (test code = Lymphocytes) 5.0 20.0-40.0 [facility] HospitalJvnmzznGLKUCAJCDC1358-80-91 21:03:00 Test Item Value Reference Range Interpretation Comments Monocytes (test code = Monocytes) 2.4 2.0-12.0 [facility] HospitalPvekcslZCIOFAIDJE1862-36-92 21:03:00 Test Item Value Reference Range Interpretation Comments Basophils (test code = Basophils) 0.7 <=1.0 [facility] HospitalDsjlyzvFLUDXYLOPE5698-65-85 21:03:00 Test Item Value Reference Range Interpretation Comments Neutrophils # (test code = Neutrophils 10.1 1.5-8.1 #) [facility] HospitalEisembqFLOSJHBPOI9972-27-50 21:03:00 Test Item Value Reference Range Interpretation Comments Lymphocytes # (test code = Lymphocytes 0.5 1.0-5.5 #) [facility] HospitalPjaikqlYCKHAEAIOA7214-05-30 21:03:00 Test Item Value Reference Range Interpretation Comments Monocytes # (test code = Monocytes #) 0.3 <=0.8 [facility] HospitalVxpbfxwWTBSHESRJQ6921-24-06 21:03:00 Test Item Value Reference Range Interpretation Comments Basophils # (test code = Basophils #) 0.1 <=0.2 [facility] MOFASYK8569-34-84 21:03:00 Test Item Value Reference Range Interpretation Comments Troponin-I (test code = Troponin-I) no gt <=0.40 [facility] ZEHECVR0782-83-69 21:03:00 Test Item Value Reference Range Interpretation Comments BNP (test code = BNP) 75 [facility] VZKXR8960-76-54 21:03:00 Test Item Value Reference Range Interpretation Comments Lipase Lvl (test code = Lipase Lvl) 130 73-393 [facility]XkcpwxvSMYLPIWECFEW8601-87-45 21:03:00 Test Item Value Reference Range Interpretation Comments AGAP (test code = AGAP) 12.6 10.0-20.0 [facility] HospitalTupshsfMAPHITKGZQIX7682-24-91 21:03:00 Test Item Value Reference Range Interpretation Comments B/C Ratio (test code = B/C Ratio) 16 1 6-25 [facility]NdzesljVPTKRMTOOWNO3738-23-93 21:03:00 Test Item Value Reference Range Interpretation Comments Globulin (test code = Globulin) 3.8 2.7-4.2 [facility] HospitalArooayjPMUSBNQREXIA7232-89-49 21:03:00 Test Item Value Reference Range Interpretation Comments A/G Ratio (test code = A/G Ratio) 0.9 1 0.7-1.6 [facility] HospitalWaluqymNTHYTVIFVVLB6770-81-68 21:03:00 Test Item Value Reference Range Interpretation Comments Glucose Lvl (test code = Glucose Lvl) 177 70-99 [facility] ClubJbaeshoIDMDCVONIQKO3073-62-11 21:03:00 Test Item Value Reference Range Interpretation Comments BUN (test code = BUN) 35 7-22 [facility] HospitalSoahnmxFOBTPMALHDEO9447-82-69 21:03:00 Test Item Value Reference Range Interpretation Comments Creatinine Lvl (test code = Creatinine 2.24 0.50-1.40 Lvl) [facility] HospitalTqwxwwlCUHUTMPVKKFR8567-70-35 21:03:00 Test Item Value Reference Range Interpretation Comments Sodium Lvl (test code = Sodium Lvl) 139 135-145 [facility] HospitalDpwsxptYTYEMJINUKTX1659-11-93 21:03:00 Test Item Value Reference Range Interpretation Comments Potassium Lvl (test code = Potassium 4.6 3.5-5.1 Lvl) [facility] HospitalCingcjnLGDOWPCANJYN3763-72-07 21:03:00 Test Item Value Reference Range Interpretation Comments Chloride Lvl (test code = Chloride Lvl) 105 95-109 [facility]KuedflsOVIZIBDCBGFT3659-66-98 21:03:00 Test Item Value Reference Range Interpretation Comments CO2 (test code = CO2) 26 24-32 [facility] HospitalBkfwfhpGDYRGAUFNBPH3963-52-15 21:03:00 Test Item Value Reference Range Interpretation Comments Calcium Lvl (test code = Calcium Lvl) 9.5 8.5-10.5 [facility] HospitalRymmsawNUFCTPLZXKAR5393-36-96 21:03:00 Test Item Value Reference Range Interpretation Comments Total Protein (test code = Total 7.2 6.4-8.4 Protein) [facility] HospitalYgyxrovTNQLBIUKSSSG3330-12-86 21:03:00 Test Item Value Reference Range Interpretation Comments Albumin Lvl (test code = Albumin Lvl) 3.4 3.5-5.0 [facility] HospitalQukkerfOGFVDVNNWGAG6813-25-89 21:03:00 Test Item Value Reference Range Interpretation Comments ALT (test code = ALT) 28 <=65 [facility] HospitalUoxjucfZBMJZELFRUTU7274-18-79 21:03:00 Test Item Value Reference Range Interpretation Comments AST (test code = AST) 22 <=37 [facility] HospitalFiepvyrGOLKXLLLSBMV3492-62-87 21:03:00 Test Item Value Reference Range Interpretation Comments Alk Phos (test code = Alk Phos) 82 39-136 [facility] HospitalUmwckccCMPVVSMBWSTV5961-06-89 21:03:00 Test Item Value Reference Range Interpretation Comments Bili Total (test code = Bili Total) 0.4 0.2-1.3 [facility] HospitalWemiautPSYHCRPVSNEQ1535-84-22 21:03:00 Test Item Value Reference Range Interpretation Comments eGFR (test code = eGFR) 29 [facility] HospitalSdnakgzJGBXEYPNQA2629-96-86 21:03:00 Test Item Value Reference Range Interpretation Comments WBC (test code = WBC) 11.0 3.7-10.4 [facility] HospitalAfxlsneXRNINSVVHQ1965-94-77 21:03:00 Test Item Value Reference Range Interpretation Comments RBC (test code = RBC) 4.22 4.70-6.10 [facility] HospitalXziyrywIZOGBQLBBW0515-61-71 21:03:00 Test Item Value Reference Range Interpretation Comments Hgb (test code = Hgb) 13.4 14.0-18.0 [facility] HospitalOzcptnzPJOEASGZEZ6057-34-15 21:03:00 Test Item Value Reference Range Interpretation Comments Hct (test code = Hct) 40.2 42.0-54.0 [facility] HospitalBorqhqxGKFSZRWFLL3749-78-53 21:03:00 Test Item Value Reference Range Interpretation Comments MCV (test code = MCV) 95.2 80.0-94.0 [facility] HospitalUxggfmzXTQWIJMBCT7131-81-98 21:03:00 Test Item Value Reference Range Interpretation Comments MCH (test code = MCH) 31.7 pg 27.0-31.0 [facility] HospitalUoncndhYVIUFVBWOA6603-58-47 21:03:00 Test Item Value Reference Range Interpretation Comments MCHC (test code = MCHC) 33.3 32.0-36.0 [facility] HospitalGbopcnrMEMXVQKIMV9569-10-54 21:03:00 Test Item Value Reference Range Interpretation Comments RDW (test code = RDW) 14.3 11.5-14.5 [facility] HospitalGpogqbsSDLAYQUEJO1057-70-37 21:03:00 Test Item Value Reference Range Interpretation Comments Platelet (test code = Platelet) 286 133-450 [facility] HospitalPtlmxxsLWMDTNVTLR2795-84-55 21:03:00 Test Item Value Reference Range Interpretation Comments MPV (test code = MPV) 8.5 7.4-10.4 [facility] HospitalUvspxepFBCSTVRJQO3554-76-06 21:03:00 Test Item Value Reference Range Interpretation Comments Segs (test code = Segs) 91.9 45.0-75.0 [facility] HospitalFrggsseDDQMKRCIRQ4059-04-21 21:03:00 Test Item Value Reference Range Interpretation Comments Lymphocytes (test code = Lymphocytes) 5.0 20.0-40.0 [facility] HospitalOjlqgyqKVQFOZHOPS1740-76-93 21:03:00 Test Item Value Reference Range Interpretation Comments Monocytes (test code = Monocytes) 2.4 2.0-12.0 [facility] HospitalPgmzhazFLNMPNRRTP5359-62-81 21:03:00 Test Item Value Reference Range Interpretation Comments Basophils (test code = Basophils) 0.7 <=1.0 [facility] HospitalMpxyddnCREXETPEUF1051-46-75 21:03:00 Test Item Value Reference Range Interpretation Comments Neutrophils # (test code = Neutrophils 10.1 1.5-8.1 #) [facility] HospitalVxhrfmgJWRLVIQEOP9194-48-49 21:03:00 Test Item Value Reference Range Interpretation Comments Lymphocytes # (test code = Lymphocytes 0.5 1.0-5.5 #) [facility] HospitalSzabbctUMXFXUJLIY0619-92-92 21:03:00 Test Item Value Reference Range Interpretation Comments Monocytes # (test code = Monocytes #) 0.3 <=0.8 [facility] HospitalWhgdcidPCZTJVTWKY9850-19-43 21:03:00 Test Item Value Reference Range Interpretation Comments Basophils # (test code = Basophils #) 0.1 <=0.2 [facility] JIFOHTN2373-23-38 21:03:00 Test Item Value Reference Range Interpretation Comments Troponin-I (test code = Troponin-I) no gt <=0.40 [facility]CARD[facility] OFECBYB1962-05-62 21:03:00 Test Item Value Reference Range Interpretation Comments BNP (test code = BNP) 75 [facility] HospitalannCHEM ZNDEW9554-10-14 21:03:00 Test Item Value Reference Range Interpretation Comments Lipase Lvl (test code = Lipase Lvl) 130 73-393 [facility] HospitalTlyyocjWKAPXCNYNYRQ5785-23-60 21:03:00 Test Item Value Reference Range Interpretation Comments AGAP (test code = AGAP) 12.6 10.0-20.0 [facility]JqljeygMCLARWVNCJVV1518-77-49 21:03:00 Test Item Value Reference Range Interpretation Comments B/C Ratio (test code = B/C Ratio) 16 1 6-25 [facility] HospitalMyyakooXSSOLTWMUQKJ1393-10-43 21:03:00 Test Item Value Reference Range Interpretation Comments Globulin (test code = Globulin) 3.8 2.7-4.2 [facility] HospitalKmoinohJPVPIYSSVNCH5613-50-34 21:03:00 Test Item Value Reference Range Interpretation Comments A/G Ratio (test code = A/G Ratio) 0.9 1 0.7-1.6 [facility] HospitalZfkozwoZIWVBYSWKRNN9939-79-61 21:03:00 Test Item Value Reference Range Interpretation Comments Glucose Lvl (test code = Glucose Lvl) 177 70-99 [facility] HospitalRhrdathRHRNMATOZDJC5961-96-48 21:03:00 Test Item Value Reference Range Interpretation Comments BUN (test code = BUN) 35 7-22 [facility] HospitalXrnjvjtJVCHXCZRFVQI6094-39-52 21:03:00 Test Item Value Reference Range Interpretation Comments Creatinine Lvl (test code = Creatinine 2.24 0.50-1.40 Lvl) [facility] HospitalXmscqabXXLZGVAUFTGE5581-31-76 21:03:00 Test Item Value Reference Range Interpretation Comments Sodium Lvl (test code = Sodium Lvl) 139 135-145 [facility] HospitalDdbirawUSWDEURHJQUG0521-80-61 21:03:00 Test Item Value Reference Range Interpretation Comments Potassium Lvl (test code = Potassium 4.6 3.5-5.1 Lvl) [facility] HospitalPemuaovPLGVYCTKHJNJ3078-69-05 21:03:00 Test Item Value Reference Range Interpretation Comments Chloride Lvl (test code = Chloride Lvl) 105 95-109 [facility] HospitalBupdlyfCQVVDVUCQUSC1491-07-87 21:03:00 Test Item Value Reference Range Interpretation Comments CO2 (test code = CO2) 26 24-32 [facility] HospitalHdeyhxoRGEOLFCWLQMT4516-04-95 21:03:00 Test Item Value Reference Range Interpretation Comments Calcium Lvl (test code = Calcium Lvl) 9.5 8.5-10.5 [facility] HospitalUjxfacpHHWPMLAPJEUS7437-34-18 21:03:00 Test Item Value Reference Range Interpretation Comments Total Protein (test code = Total 7.2 6.4-8.4 Protein) [facility] HospitalYlimionOUEVKOIYCWIX6439-55-88 21:03:00 Test Item Value Reference Range Interpretation Comments Albumin Lvl (test code = Albumin Lvl) 3.4 3.5-5.0 [facility] HospitalZxgzjopTORPOKUEMHAA2933-48-63 21:03:00 Test Item Value Reference Range Interpretation Comments ALT (test code = ALT) 28 <=65 [facility] HospitalHddbfkxFZSWFALNCBOO8729-26-19 21:03:00 Test Item Value Reference Range Interpretation Comments AST (test code = AST) 22 <=37 [facility] HospitalFotzzteBQQIVHYSECTP9715-87-07 21:03:00 Test Item Value Reference Range Interpretation Comments Alk Phos (test code = Alk Phos) 82 39-136 [facility] HospitalYvdvshcBPBOWFQROCDK2175-89-95 21:03:00 Test Item Value Reference Range Interpretation Comments Bili Total (test code = Bili Total) 0.4 0.2-1.3 [facility] HospitalZcuczgaOKAISQMRSWAW3551-57-58 21:03:00 Test Item Value Reference Range Interpretation Comments eGFR (test code = eGFR) 29 [facility]WeeiryyGURHOKEEOJ8635-31-87 21:03:00 Test Item Value Reference Range Interpretation Comments WBC (test code = WBC) 11.0 3.7-10.4 [facility] HospitalYqotdjqLSZHDWWKZN5895-60-54 21:03:00 Test Item Value Reference Range Interpretation Comments RBC (test code = RBC) 4.22 4.70-6.10 [facility] HospitalXugupoqYKMQZDSWKQ4738-45-02 21:03:00 Test Item Value Reference Range Interpretation Comments Hgb (test code = Hgb) 13.4 14.0-18.0 [facility] HospitalJtlbvftEECQHDWRFK8437-41-90 21:03:00 Test Item Value Reference Range Interpretation Comments Hct (test code = Hct) 40.2 42.0-54.0 [facility] HospitalEbtflctNYRLAOVBIT9400-72-60 21:03:00 Test Item Value Reference Range Interpretation Comments MCV (test code = MCV) 95.2 80.0-94.0 [facility] HospitalZreltbxJOTUBMASBI8069-21-50 21:03:00 Test Item Value Reference Range Interpretation Comments MCH (test code = MCH) 31.7 pg 27.0-31.0 [facility] HospitalBfagdnvEKXNZIPOLH5955-81-99 21:03:00 Test Item Value Reference Range Interpretation Comments MCHC (test code = MCHC) 33.3 32.0-36.0 [facility] HospitalLnjcfywPMQHPQGPPD5748-40-52 21:03:00 Test Item Value Reference Range Interpretation Comments RDW (test code = RDW) 14.3 11.5-14.5 [facility] HospitalBjmltskEJOMLJFTSC6741-17-22 21:03:00 Test Item Value Reference Range Interpretation Comments Platelet (test code = Platelet) 286 133-450 [facility] HospitalZgmijeiEHUAJLDPUN3601-94-83 21:03:00 Test Item Value Reference Range Interpretation Comments MPV (test code = MPV) 8.5 7.4-10.4 [facility] HospitalWtclyjlLGWVHFKMMB6133-38-96 21:03:00 Test Item Value Reference Range Interpretation Comments Segs (test code = Segs) 91.9 45.0-75.0 [facility] HospitalLrzaohqWWKVYAZVWJ3119-30-90 21:03:00 Test Item Value Reference Range Interpretation Comments Lymphocytes (test code = Lymphocytes) 5.0 20.0-40.0 [facility] HospitalJgmefbuCOMMETMHGA1436-06-21 21:03:00 Test Item Value Reference Range Interpretation Comments Monocytes (test code = Monocytes) 2.4 2.0-12.0 [facility] HospitalIdwgsoqIEOZMFSLEI3458-85-07 21:03:00 Test Item Value Reference Range Interpretation Comments Basophils (test code = Basophils) 0.7 <=1.0 [facility] HospitalWrhdidtYLKIREUYRB1641-54-21 21:03:00 Test Item Value Reference Range Interpretation Comments Neutrophils # (test code = Neutrophils 10.1 1.5-8.1 #) [facility] HospitalPggxbjgVUSANKVJDL8945-74-65 21:03:00 Test Item Value Reference Range Interpretation Comments Lymphocytes # (test code = Lymphocytes 0.5 1.0-5.5 #) [facility] HospitalFaiiovqANITOMYOZU0358-28-41 21:03:00 Test Item Value Reference Range Interpretation Comments Monocytes # (test code = Monocytes #) 0.3 <=0.8 [facility] HospitalJcqsfiaRXKKSVJFOS4515-42-62 21:03:00 Test Item Value Reference Range Interpretation Comments Basophils # (test code = Basophils #) 0.1 <=0.2 [facility] AND [id number] 23:00:00 Test Item Value Reference Range Interpretation Comments Occult Bld Stl (test Negative (09/29/15 6:00 code = Occult Bld Stl) PM) [facility] AND [id number] 23:00:00 Test Item Value Reference Range Interpretation Comments Occult Bld Stl (test Negative (09/29/15 6:00 code = Occult Bld Stl) PM) [facility] AND [id number] 23:00:00 Test Item Value Reference Range Interpretation Comments Occult Bld Stl (test Negative (09/29/15 6:00 code = Occult Bld Stl) PM) [facility] [id number] 23:00:00 Test Item Value Reference Range Interpretation Comments Occult Bld Stl (test Negative (09/29/15 6:00 code = Occult Bld Stl) PM) [facility] AND [id number] 23:00:00 Test Item Value Reference Range Interpretation Comments Occult Bld Stl (test Negative (09/29/15 6:00 code = Occult Bld Stl) PM) [facility] AND [id number] 23:00:00 Test Item Value Reference Range Interpretation Comments Occult Bld Stl (test Negative (09/29/15 6:00 code = Occult Bld Stl) PM) [facility] AND [id number] 23:00:00 Test Item Value Reference Range Interpretation Comments Occult Bld Stl (test Negative (09/29/15 6:00 code = Occult Bld Stl) PM) [facility] AND [id number] 23:00:00 Test Item Value Reference Range Interpretation Comments Occult Bld Stl (test Negative (09/29/15 6:00 code = Occult Bld Stl) PM) [facility] AND [id number] 23:00:00 Test Item Value Reference Range Interpretation Comments Occult Bld Stl (test Negative (09/29/15 6:00 code = Occult Bld Stl) PM) [facility] AND [id number] 23:00:00 Test Item Value Reference Range Interpretation Comments Occult Bld Stl (test Negative (09/29/15 6:00 code = Occult Bld Stl) PM) [facility] AND [id number] 23:00:00 Test Item Value Reference Range Interpretation Comments Occult Bld Stl (test Negative (09/29/15 6:00 code = Occult Bld Stl) PM) [facility] HospitalOmqkfwmCEKCITHGRX5092-54-24 13:12:00 Test Item Value Reference Range Interpretation Comments Basophils (test code = Basophils) 1.2 <=1.0 [facility] HospitalXrswpzgPLGFJFQGRD4893-65-34 13:12:00 Test Item Value Reference Range Interpretation Comments Lymphocytes # (test code = Lymphocytes 1.7 1.0-5.5 #) [facility] HospitalJcfnofbROZDEEDBZX7474-07-31 13:12:00 Test Item Value Reference Range Interpretation Comments Segs-Bands # (test code = Segs-Bands #) 3.6 1.5-8.1 [facility] HospitalAiklefwPUFDZAKDXY5961-88-72 13:12:00 Test Item Value Reference Range Interpretation Comments Eosinophils # (test code = Eosinophils 0.2 <=0.5 #) [facility] HospitalQcebgzdBACZDWPZKE3616-88-33 13:12:00 Test Item Value Reference Range Interpretation Comments Basophils # (test code = Basophils #) 0.1 <=0.2 [facility] HospitalReevxqnZUYNOXPOWE9367-19-46 13:12:00 Test Item Value Reference Range Interpretation Comments Hgb (test code = Hgb) 13.9 14.0-18.0 [facility] HospitalHwbtogeYKIPZPMVNA9522-31-82 13:12:00 Test Item Value Reference Range Interpretation Comments RBC (test code = RBC) 4.57 4.70-6.10 [facility] HospitalHsbcjphIUSIBUHCSB1484-19-65 13:12:00 Test Item Value Reference Range Interpretation Comments WBC (test code = WBC) 6.1 3.7-10.4 [facility] HospitalZtwmzqnCVYFMVMKLC4998-99-49 13:12:00 Test Item Value Reference Range Interpretation Comments Hct (test code = Hct) 40.6 42.0-54.0 [facility] HospitalPszjjxwWDYYFWHTTS8677-25-42 13:12:00 Test Item Value Reference Range Interpretation Comments MCH (test code = MCH) 30.4 pg 27.0-31.0 [facility] HospitalNuddtffQCSAMRYZXG3861-77-50 13:12:00 Test Item Value Reference Range Interpretation Comments MCV (test code = MCV) 88.9 80.0-94.0 [facility] HospitalYawxqppHJLDZGOPDK4492-94-76 13:12:00 Test Item Value Reference Range Interpretation Comments MCHC (test code = MCHC) 34.2 32.0-36.0 [facility] HospitalUikgjdhTJXUSVVLVO9101-62-98 13:12:00 Test Item Value Reference Range Interpretation Comments Platelet (test code = Platelet) 196 133-450 [facility] HospitalJxfgworCACVPTQSDW5720-14-61 13:12:00 Test Item Value Reference Range Interpretation Comments RDW (test code = RDW) 13.7 11.5-14.5 [facility]QlhndppGZOOPSOQHF2121-84-02 13:12:00 Test Item Value Reference Range Interpretation Comments MPV (test code = MPV) 8.5 7.4-10.4 [facility] SouthIeqzxlsRXRQNJ2747-35-71 13:12:00 Test Item Value Reference Range Interpretation Comments HDL (test code = HDL) 75 [facility] SouthLcfoiooNPFNIK9597-83-83 13:12:00 Test Item Value Reference Range Interpretation Comments Chol (test code = Chol) 143 [facility] SouthIpwuhtlIVSDCP6466-97-68 13:12:00 Test Item Value Reference Range Interpretation Comments VLDL (test code = VLDL) 19 [facility] SouthNevvwuvWXZKRX9014-02-52 13:12:00 Test Item Value Reference Range Interpretation Comments Trig (test code = Trig) 94 [facility]oyubueLPEYBY4182-18-02 13:12:00 Test Item Value Reference Range Interpretation Comments LDL (Calculated) (test code = LDL 49 (Calculated)) [facility]HjdlwypOCNAJO9032-42-85 13:12:00 Test Item Value Reference Range Interpretation Comments CHD Risk (test code = CHD Risk) 1.91 4.00-7.30 [facility] JRDFUSCIY4123-52-80 13:12:00 Test Item Value Reference Range Interpretation Comments Hgb A1C (test code = Hgb A1C) 6.9 [facility] AND [id number] 13:12:00 Test Item Value Reference Range Interpretation Comments UA Color (test code = UA Color) Ltyellow [facility] AND CZYFO3684-04-00 13:12:00 Test Item Value Reference Range Interpretation Comments UA Urobilinogen (test code = UA <=1.0 mg/dL 0.1-1.0 Urobilinogen) [facility] AND [id number] 13:12:00 Test Item Value Reference Range Interpretation Comments UA Ketones (test code = UA Negative mg/dL Ketones) [facility] AND [id number] 13:12:00 Test Item Value Reference Range Interpretation Comments UA Glucose (test code = UA Negative mg/dL Glucose) [facility] AND [id number] 13:12:00 Test Item Value Reference Range Interpretation Comments UA Protein (test code = UA Protein) 100 mg/dL [facility] [id number] 13:12:00 Test Item Value Reference Range Interpretation Comments UA Leuk Est (test Negative (09/28/15 8:12 code = UA Leuk Est) AM) [facility] [id number] 13:12:00 Test Item Value Reference Range Interpretation Comments UA Nitrite (test code Negative (09/28/15 8:12 = UA Nitrite) AM) [facility] AND [id number] 13:12:00 Test Item Value Reference Range Interpretation Comments UA Bili (test code = Negative *NA*(09/28/15 UA Bili) 8:12 AM) [facility] AND [id number] 13:12:00 Test Item Value Reference Range Interpretation Comments UA Sq Epi (test code = UA Sq Epi) None Seen [facility] AND [id number] 13:12:00 Test Item Value Reference Range Interpretation Comments UA Blood (test code = Negative (09/28/15 8:12 UA Blood) AM) [facility] [id number] 13:12:00 Test Item Value Reference Range Interpretation Comments UA pH (test code = UA pH) 6.0 5.0-8.0 [facility] AND [id number] 13:12:00 Test Item Value Reference Range Interpretation Comments UA Spec Grav (test code = UA Spec Grav) 1.010 [facility] AND [id number] 13:12:00 Test Item Value Reference Range Interpretation Comments UA Turbidity (test code = Clear (09/28/15 8:12 UA Turbidity) AM) [facility] [id number] 13:12:00 Test Item Value Reference Range Interpretation Comments U Alb/Crea (test code = U Alb/Crea) 712.8 [facility] ZKSP7904-09-60 13:12:00 Test Item Value Reference Range Interpretation Comments U Microalb (test code = U Microalb) 345.0 [facility] MKYH1326-04-51 13:12:00 Test Item Value Reference Range Interpretation Comments U Creatinine (test code = U Creatinine) 48.40 [facility] NXEPH5864-07-27 13:12:00 Test Item Value Reference Range Interpretation Comments Uric Acid (test code = Uric Acid) 7.9 3.8-8.0 [facility]2016-07-27 13:12:00 Test Item Value Reference Range Interpretation Comments Uric Acid (test code = Uric Acid) 7.9 3.8-8.0 [facility]HicdfcxJZLWYYPRXTUC3014-30-75 13:12:00 Test Item Value Reference Range Interpretation Comments AGAP (test code = AGAP) 11.5 10.0-20.0 [facility] HospitalXlsfqzcOHNVUVQLUSGR3281-98-28 13:12:00 Test Item Value Reference Range Interpretation Comments B/C Ratio (test code = B/C Ratio) 20 6-25 [facility] HospitalUkeznkgWOUZEDRHDBMT0255-83-46 13:12:00 Test Item Value Reference Range Interpretation Comments Globulin (test code = Globulin) 3.2 2.0-4.0 [facility] HospitalEmeptbfEUXGINXPWTQU3593-57-37 13:12:00 Test Item Value Reference Range Interpretation Comments A/G Ratio (test code = A/G Ratio) 1.4 0.7-1.6 [facility] HospitalGmtdqgqATDYHHIBESRQ5234-07-72 13:12:00 Test Item Value Reference Range Interpretation Comments eGFR (test code = eGFR) 49 [facility] HospitalSmaavvlSIGPNPHNOLRI6171-08-60 13:12:00 Test Item Value Reference Range Interpretation Comments Bili Total (test code = Bili Total) 0.5 0.2-1.3 [facility] HospitalUdxiabsWIFGABKBRRUU8961-12-27 13:12:00 Test Item Value Reference Range Interpretation Comments Sodium Lvl (test code = Sodium Lvl) 140 135-145 [facility] HospitalUlxhgkgZFYXWMPAJHIK3894-89-86 13:12:00 Test Item Value Reference Range Interpretation Comments Creatinine Lvl (test code = Creatinine 1.48 0.50-1.40 Lvl) [facility] HospitalJrbceigBTMDCZGBSBWR0833-73-76 13:12:00 Test Item Value Reference Range Interpretation Comments BUN (test code = BUN) 29 7-22 [facility] HospitalVzboblxTOGAZJWDRORB4546-48-88 13:12:00 Test Item Value Reference Range Interpretation Comments Glucose Lvl (test code = Glucose Lvl) 123 70-99 [facility] HospitalTbrtzsnARXOZHNFQMFG3084-96-18 13:12:00 Test Item Value Reference Range Interpretation Comments AGAP (test code = AGAP) 11.5 10.0-20.0 [facility] HospitalNbpilkdIPTBNTBHYQXW1643-44-62 13:12:00 Test Item Value Reference Range Interpretation Comments ALT (test code = ALT) 20 <=65 [facility] HospitalQzqlndjKTLGSIQNUVDR9740-43-13 13:12:00 Test Item Value Reference Range Interpretation Comments AST (test code = AST) 9 <=37 [facility] HospitalOblrekfZZVNBYRRYSWE2013-57-55 13:12:00 Test Item Value Reference Range Interpretation Comments Alk Phos (test code = Alk Phos) 76 39-136 [facility] HospitalIvnflfcCPTRYTRXQQUQ0304-66-85 13:12:00 Test Item Value Reference Range Interpretation Comments Calcium Lvl (test code = Calcium Lvl) 9.2 8.5-10.5 [facility] HospitalDiaelpeNIAPZSCNNLFW9242-02-38 13:12:00 Test Item Value Reference Range Interpretation Comments Albumin Lvl (test code = Albumin Lvl) 4.4 3.5-5.0 [facility] HospitalGeqpjuvSEZFMKVSCSUY5587-81-87 13:12:00 Test Item Value Reference Range Interpretation Comments Potassium Lvl (test code = Potassium 4.5 3.5-5.1 Lvl) [facility] HospitalWrrjrivQMCWOBRQKMXL8730-83-52 13:12:00 Test Item Value Reference Range Interpretation Comments Total Protein (test code = Total 7.6 6.4-8.4 Protein) [facility] HospitalWuzkgyaZDKNCQMGHLQN1017-28-20 13:12:00 Test Item Value Reference Range Interpretation Comments CO2 (test code = CO2) 28 24-32 [facility] HospitalWuezqneXLDIKFLWPYUB4461-26-60 13:12:00 Test Item Value Reference Range Interpretation Comments Chloride Lvl (test code = Chloride Lvl) 105 95-109 [facility] HospitalNpbwtjgFSCMHKUDIH2262-78-51 13:12:00 Test Item Value Reference Range Interpretation Comments Segs (test code = Segs) 60.0 45.0-75.0 [facility] HospitalYljkxhpWRBYQGDKYDOX9669-07-26 13:12:00 Test Item Value Reference Range Interpretation Comments B/C Ratio (test code = B/C Ratio) 20 6-25 [facility] HospitalRhmcmsyYEMYZRYKVL2334-33-07 13:12:00 Test Item Value Reference Range Interpretation Comments Eosinophils (test code = Eosinophils) 3.3 <=4.0 [facility] HospitalFcusjczVHSFEPYKVC7537-39-24 13:12:00 Test Item Value Reference Range Interpretation Comments Monocytes (test code = Monocytes) 8.1 2.0-12.0 [facility] HospitalRxdvhfuYIOJLCJAFI7975-13-03 13:12:00 Test Item Value Reference Range Interpretation Comments Lymphocytes (test code = Lymphocytes) 27.4 20.0-40.0 [facility] HospitalAvpfuofJSTELZDUOC6719-20-16 13:12:00 Test Item Value Reference Range Interpretation Comments Monocytes # (test code = Monocytes #) 0.5 <=0.8 [facility] [facility]wkzvoxNCUYYFXMAT6893-75-64 13:12:00 Test Item Value Reference Range Interpretation Comments Basophils (test code = Basophils) 1.2 <=1.0 [facility]PgplsmwQJHPUQVKPP5920-10-42 13:12:00 Test Item Value Reference Range Interpretation Comments Lymphocytes # (test code = Lymphocytes 1.7 1.0-5.5 #) [facility]MgdvnagEQGJFEUVJT8043-72-39 13:12:00 Test Item Value Reference Range Interpretation Comments Segs-Bands # (test code = Segs-Bands #) 3.6 1.5-8.1 [facility] HospitalSlezncgIMODBRFWTN4825-34-55 13:12:00 Test Item Value Reference Range Interpretation Comments Eosinophils # (test code = Eosinophils 0.2 <=0.5 #) [facility] HospitalYkkmugfHGAFKJKEZO9376-99-33 13:12:00 Test Item Value Reference Range Interpretation Comments Basophils # (test code = Basophils #) 0.1 <=0.2 [facility] HospitalEmghpfqUGTZAYQGLP8977-06-68 13:12:00 Test Item Value Reference Range Interpretation Comments Hgb (test code = Hgb) 13.9 14.0-18.0 [facility]RyhtjuxSRASPMGDCQDO2802-08-95 13:12:00 Test Item Value Reference Range Interpretation Comments Globulin (test code = Globulin) 3.2 2.0-4.0 [facility] HospitalMedqchrTPYZJVURQF1999-44-99 13:12:00 Test Item Value Reference Range Interpretation Comments RBC (test code = RBC) 4.57 4.70-6.10 [facility] HospitalJadwxuoLTWDHREGJA2789-87-38 13:12:00 Test Item Value Reference Range Interpretation Comments WBC (test code = WBC) 6.1 3.7-10.4 [facility] HospitalXgyjjbyKCYNLXEVPH4168-83-09 13:12:00 Test Item Value Reference Range Interpretation Comments Hct (test code = Hct) 40.6 42.0-54.0 [facility]MlfggskDMEQZTTJQU0969-38-29 13:12:00 Test Item Value Reference Range Interpretation Comments MCH (test code = MCH) 30.4 pg 27.0-31.0 [facility] HospitalHzyolbwHAXNIVNLFM3002-07-74 13:12:00 Test Item Value Reference Range Interpretation Comments MCV (test code = MCV) 88.9 80.0-94.0 [facility] HospitalHxvdtghFMOZMQEHYU1446-41-54 13:12:00 Test Item Value Reference Range Interpretation Comments MCHC (test code = MCHC) 34.2 32.0-36.0 [facility] HospitalQbyfehjGDSWQDIUQB2982-55-67 13:12:00 Test Item Value Reference Range Interpretation Comments Platelet (test code = Platelet) 196 133-450 [facility] HospitalQfjjrafSJGBCGUNTZ1596-19-29 13:12:00 Test Item Value Reference Range Interpretation Comments RDW (test code = RDW) 13.7 11.5-14.5 [facility] HospitalOomektpEHEVEOJIUS0139-52-52 13:12:00 Test Item Value Reference Range Interpretation Comments MPV (test code = MPV) 8.5 7.4-10.4 [facility] SouthZtsuoslZGMDSP8075-09-86 13:12:00 Test Item Value Reference Range Interpretation Comments HDL (test code = HDL) 75 [facility] HospitalGlqzdinIDLPHVDNEIQC7498-06-68 13:12:00 Test Item Value Reference Range Interpretation Comments A/G Ratio (test code = A/G Ratio) 1.4 0.7-1.6 [facility] SouthIrvtpwmTYKRRW1785-27-94 13:12:00 Test Item Value Reference Range Interpretation Comments Chol (test code = Chol) 143 [facility] SouthQdeyxttMYTVYJ5698-95-31 13:12:00 Test Item Value Reference Range Interpretation Comments VLDL (test code = VLDL) 19 [facility] HospitalLjeamblKPMZUF6718-72-59 13:12:00 Test Item Value Reference Range Interpretation Comments Trig (test code = Trig) 94 [facility] SouthZvghyviYFAOHT9943-39-74 13:12:00 Test Item Value Reference Range Interpretation Comments LDL (Calculated) (test code = LDL 49 (Calculated)) [facility] SouthNltzjsyJVHZRQ1229-17-41 13:12:00 Test Item Value Reference Range Interpretation Comments CHD Risk (test code = CHD Risk) 1.91 4.00-7.30 [facility] SWTBAOYHG3460-61-85 13:12:00 Test Item Value Reference Range Interpretation Comments Hgb A1C (test code = Hgb A1C) 6.9 [facility] AND [id number] 13:12:00 Test Item Value Reference Range Interpretation Comments UA Color (test code = UA Color) Ltyellow [facility] AND [id number] 13:12:00 Test Item Value Reference Range Interpretation Comments UA Urobilinogen (test code = UA <=1.0 mg/dL 0.1-1.0 Urobilinogen) [facility] AND [id number] 13:12:00 Test Item Value Reference Range Interpretation Comments UA Ketones (test code = UA Negative mg/dL Ketones) [facility] AND [id number] 13:12:00 Test Item Value Reference Range Interpretation Comments UA Glucose (test code = UA Negative mg/dL Glucose) [facility] HospitalBgewcawSUQEPWYKPMJH8804-95-83 13:12:00 Test Item Value Reference Range Interpretation Comments eGFR (test code = eGFR) 49 [facility] AND [id number] 13:12:00 Test Item Value Reference Range Interpretation Comments UA Protein (test code = UA Protein) 100 mg/dL [facility] AND [id number] 13:12:00 Test Item Value Reference Range Interpretation Comments UA Leuk Est (test Negative (09/28/15 8:12 code = UA Leuk Est) AM) [facility] AND [id number] 13:12:00 Test Item Value Reference Range Interpretation Comments UA Nitrite (test code Negative (09/28/15 8:12 = UA Nitrite) AM) [facility] AND [id number] 13:12:00 Test Item Value Reference Range Interpretation Comments UA Bili (test code = Negative *NA*(09/28/15 UA Bili) 8:12 AM) [facility] AND [id number] 13:12:00 Test Item Value Reference Range Interpretation Comments UA Sq Epi (test code = UA Sq Epi) None Seen [facility] AND [id number] 13:12:00 Test Item Value Reference Range Interpretation Comments UA Blood (test code = Negative (7/27/16 8:12 UA Blood) AM) [facility] AND [id number] 13:12:00 Test Item Value Reference Range Interpretation Comments UA pH (test code = UA pH) 6.0 5.0-8.0 [facility] AND [id number] 13:12:00 Test Item Value Reference Range Interpretation Comments UA Spec Grav (test code = UA Spec Grav) 1.010 [facility] AND [id number] 13:12:00 Test Item Value Reference Range Interpretation Comments UA Turbidity (test code = Clear (09/28/15 8:12 UA Turbidity) AM) [facility]2016-07-27 13:12:00 Test Item Value Reference Range Interpretation Comments U Alb/Crea (test code = U Alb/Crea) 712.8 [facility]DtmtigvWBPWVVWIFLXW0892-28-59 13:12:00 Test Item Value Reference Range Interpretation Comments Bili Total (test code = Bili Total) 0.5 0.2-1.3 [facility]2016-07-27 13:12:00 Test Item Value Reference Range Interpretation Comments U Microalb (test code = U Microalb) 345.0 [facility]2016-07-27 13:12:00 Test Item Value Reference Range Interpretation Comments U Creatinine (test code = U Creatinine) 48.40 [facility]DsrlaxpVWNSRZZMGTPK1965-73-25 13:12:00 Test Item Value Reference Range Interpretation Comments Sodium Lvl (test code = Sodium Lvl) 140 135-145 [facility] HospitalWsgahsqNQIORKUYKKHZ8774-66-07 13:12:00 Test Item Value Reference Range Interpretation Comments Creatinine Lvl (test code = Creatinine 1.48 0.50-1.40 Lvl) [facility]PtugyntROFRLCIRVSKM8010-77-46 13:12:00 Test Item Value Reference Range Interpretation Comments BUN (test code = BUN) 29 7-22 [facility] HospitalJpjjnakXSGJNVUPJAQP7596-80-06 13:12:00 Test Item Value Reference Range Interpretation Comments Glucose Lvl (test code = Glucose Lvl) 123 70-99 [facility] HospitalLsvsyxpVGINMJPWGLOL3316-25-92 13:12:00 Test Item Value Reference Range Interpretation Comments ALT (test code = ALT) 20 <=65 [facility] HospitalIqybwqnNUZGEOMVXYIC9911-28-85 13:12:00 Test Item Value Reference Range Interpretation Comments AST (test code = AST) 9 <=37 [facility] HospitalIwakqtpVOKOBRQSOIWI4255-08-72 13:12:00 Test Item Value Reference Range Interpretation Comments Alk Phos (test code = Alk Phos) 76 39-136 [facility] HospitalDctxggyWGFVEYETRMQP8060-24-17 13:12:00 Test Item Value Reference Range Interpretation Comments Calcium Lvl (test code = Calcium Lvl) 9.2 8.5-10.5 [facility] HospitalCdhnzxzGBWJEFBHGQZG0649-08-79 13:12:00 Test Item Value Reference Range Interpretation Comments Albumin Lvl (test code = Albumin Lvl) 4.4 3.5-5.0 [facility] HospitalKfspcqcSUYMZPWPYPOX2053-38-37 13:12:00 Test Item Value Reference Range Interpretation Comments Potassium Lvl (test code = Potassium 4.5 3.5-5.1 Lvl) [facility] HospitalBgtorrkQJTHWREKSCDF0521-78-92 13:12:00 Test Item Value Reference Range Interpretation Comments Total Protein (test code = Total 7.6 6.4-8.4 Protein) [facility] HospitalCujhkzzTAMCJCHBCAUB9663-11-92 13:12:00 Test Item Value Reference Range Interpretation Comments CO2 (test code = CO2) 28 24-32 [facility] HospitalQaymyjuQHXBVEUCRZOY4563-85-44 13:12:00 Test Item Value Reference Range Interpretation Comments Chloride Lvl (test code = Chloride Lvl) 105 95-109 [facility] HospitalCmvhbyaYYSQQLPROI4670-05-36 13:12:00 Test Item Value Reference Range Interpretation Comments Segs (test code = Segs) 60.0 45.0-75.0 [facility] HospitalJsecyllCPTIYQTYTP5341-05-08 13:12:00 Test Item Value Reference Range Interpretation Comments Eosinophils (test code = Eosinophils) 3.3 <=4.0 [facility] HospitalRqpdvkeHCZOHMTGSL0766-80-06 13:12:00 Test Item Value Reference Range Interpretation Comments Monocytes (test code = Monocytes) 8.1 2.0-12.0 [facility] HospitalPivjfouKJYMYBYSXH7477-95-68 13:12:00 Test Item Value Reference Range Interpretation Comments Lymphocytes (test code = Lymphocytes) 27.4 20.0-40.0 [facility] HospitalUbcwxpwORTWCUAVPR3561-12-91 13:12:00 Test Item Value Reference Range Interpretation Comments Monocytes # (test code = Monocytes #) 0.5 <=0.8 [facility] HospitalJkmafmzOFEMGOTRBZ6721-58-82 13:12:00 Test Item Value Reference Range Interpretation Comments Basophils (test code = Basophils) 1.2 <=1.0 [facility] HospitalZkfthvlALRKYJXSIX0910-06-07 13:12:00 Test Item Value Reference Range Interpretation Comments Lymphocytes # (test code = Lymphocytes 1.7 1.0-5.5 #) [facility] HospitalHprjpviFHSPTXMQFU5231-96-01 13:12:00 Test Item Value Reference Range Interpretation Comments Segs-Bands # (test code = Segs-Bands #) 3.6 1.5-8.1 [facility] HospitalApueahuUNKVIGAPAI3699-50-84 13:12:00 Test Item Value Reference Range Interpretation Comments Eosinophils # (test code = Eosinophils 0.2 <=0.5 #) [facility] HospitalAiebnwmUHDUWXGZRF7200-37-75 13:12:00 Test Item Value Reference Range Interpretation Comments Basophils # (test code = Basophils #) 0.1 <=0.2 [facility] HospitalPcltgnbPSPFWBSMSU5273-29-83 13:12:00 Test Item Value Reference Range Interpretation Comments Hgb (test code = Hgb) 13.9 14.0-18.0 [facility] HospitalQwqmagxKNMBMZKPMA8250-23-37 13:12:00 Test Item Value Reference Range Interpretation Comments RBC (test code = RBC) 4.57 4.70-6.10 [facility] HospitalTozjqivUXGYNKVMJX4078-09-97 13:12:00 Test Item Value Reference Range Interpretation Comments WBC (test code = WBC) 6.1 3.7-10.4 [facility] HospitalPimmmzpGNHQKLTDFN6560-77-54 13:12:00 Test Item Value Reference Range Interpretation Comments Hct (test code = Hct) 40.6 42.0-54.0 [facility] HospitalTbzrxrpPPFENPCDHU6038-23-20 13:12:00 Test Item Value Reference Range Interpretation Comments MCH (test code = MCH) 30.4 pg 27.0-31.0 [facility] HospitalOazmgwqFFVRQIFINJ9587-70-30 13:12:00 Test Item Value Reference Range Interpretation Comments MCV (test code = MCV) 88.9 80.0-94.0 [facility] HospitalZiqbkpbGCSLGQZTVM8141-23-60 13:12:00 Test Item Value Reference Range Interpretation Comments MCHC (test code = MCHC) 34.2 32.0-36.0 [facility] HospitalVdwspvhTWPMRXBIJV4490-92-86 13:12:00 Test Item Value Reference Range Interpretation Comments Platelet (test code = Platelet) 196 133-450 [facility] HospitalMkzxqwnZGMBFYXHQB4810-97-55 13:12:00 Test Item Value Reference Range Interpretation Comments RDW (test code = RDW) 13.7 11.5-14.5 [facility] HospitalGcizwntMMEWEFKPUF8604-39-44 13:12:00 Test Item Value Reference Range Interpretation Comments MPV (test code = MPV) 8.5 7.4-10.4 [facility]TjpnbrmTTHOVL6268-45-45 13:12:00 Test Item Value Reference Range Interpretation Comments HDL (test code = HDL) 75 [facility] SouthFinujvkGCHBZI2515-09-22 13:12:00 Test Item Value Reference Range Interpretation Comments Chol (test code = Chol) 143 [facility] SouthBnglwdwDUKUJS5769-10-60 13:12:00 Test Item Value Reference Range Interpretation Comments VLDL (test code = VLDL) 19 [facility] SouthXyyqnycGEGXCU1035-12-13 13:12:00 Test Item Value Reference Range Interpretation Comments Trig (test code = Trig) 94 [facility] SouthWfkmvbzUXMOKP0467-02-54 13:12:00 Test Item Value Reference Range Interpretation Comments LDL (Calculated) (test code = LDL 49 (Calculated)) [facility] SouthHwmcvwpCMPZFM9080-34-84 13:12:00 Test Item Value Reference Range Interpretation Comments CHD Risk (test code = CHD Risk) 1.91 4.00-7.30 [facility] EPKALLILO5824-56-92 13:12:00 Test Item Value Reference Range Interpretation Comments Hgb A1C (test code = Hgb A1C) 6.9 [facility] AND [id number] 13:12:00 Test Item Value Reference Range Interpretation Comments UA Color (test code = UA Color) Ltyellow [facility] AND [id number] 13:12:00 Test Item Value Reference Range Interpretation Comments UA Urobilinogen (test code = UA <=1.0 mg/dL 0.1-1.0 Urobilinogen) [facility] AND [id number] 13:12:00 Test Item Value Reference Range Interpretation Comments UA Ketones (test code = UA Negative mg/dL Ketones) [facility] AND [id number] 13:12:00 Test Item Value Reference Range Interpretation Comments UA Glucose (test code = UA Negative mg/dL Glucose) [facility] AND LQXPM4770-48-18 13:12:00 Test Item Value Reference Range Interpretation Comments UA Protein (test code = UA Protein) 100 mg/dL [facility] AND [id number] 13:12:00 Test Item Value Reference Range Interpretation Comments UA Leuk Est (test Negative (09/28/15 8:12 code = UA Leuk Est) AM) [facility] AND [id number] 13:12:00 Test Item Value Reference Range Interpretation Comments UA Nitrite (test code Negative (09/28/15 8:12 = UA Nitrite) AM) [facility] AND [id number] 13:12:00 Test Item Value Reference Range Interpretation Comments UA Bili (test code = Negative *NA*(09/28/15 UA Bili) 8:12 AM) [facility] AND [id number] 13:12:00 Test Item Value Reference Range Interpretation Comments UA Sq Epi (test code = UA Sq Epi) None Seen [facility] AND [id number] 13:12:00 Test Item Value Reference Range Interpretation Comments UA Blood (test code = Negative (09/28/15 8:12 UA Blood) AM) [facility] AND [id number] 13:12:00 Test Item Value Reference Range Interpretation Comments UA pH (test code = UA pH) 6.0 5.0-8.0 [facility] AND [id number] 13:12:00 Test Item Value Reference Range Interpretation Comments UA Spec Grav (test code = UA Spec Grav) 1.010 [facility] AND [id number] 13:12:00 Test Item Value Reference Range Interpretation Comments UA Turbidity (test code = Clear (09/28/15 8:12 UA Turbidity) AM) [facility] BSUZ6039-25-00 13:12:00 Test Item Value Reference Range Interpretation Comments U Alb/Crea (test code = U Alb/Crea) 712.8 [facility] MOFR6497-88-67 13:12:00 Test Item Value Reference Range Interpretation Comments U Microalb (test code = U Microalb) 345.0 [facility] IBFX9788-84-17 13:12:00 Test Item Value Reference Range Interpretation Comments U Creatinine (test code = U Creatinine) 48.40 [facility]CHEM NQMFQ0759-48-48 13:12:00 Test Item Value Reference Range Interpretation Comments Uric Acid (test code = Uric Acid) 7.9 3.8-8.0 [facility] HospitalSqgmaidXNPGTRANBYBZ7688-90-93 13:12:00 Test Item Value Reference Range Interpretation Comments AGAP (test code = AGAP) 11.5 10.0-20.0 [facility] HospitalKzxzvycLCNYJGNOJXZZ1416-68-11 13:12:00 Test Item Value Reference Range Interpretation Comments B/C Ratio (test code = B/C Ratio) 20 6-25 [facility] HospitalPetdlmpINRKZGDDNQCE6091-23-72 13:12:00 Test Item Value Reference Range Interpretation Comments Globulin (test code = Globulin) 3.2 2.0-4.0 [facility] HospitalDkejdqqMQCBYSILYOKQ3499-18-31 13:12:00 Test Item Value Reference Range Interpretation Comments A/G Ratio (test code = A/G Ratio) 1.4 0.7-1.6 [facility] HospitalXethiqbRSXXCMMFLATS8023-05-11 13:12:00 Test Item Value Reference Range Interpretation Comments eGFR (test code = eGFR) 49 [facility] HospitalAgqcykfVXEBNSBATVNB7697-15-81 13:12:00 Test Item Value Reference Range Interpretation Comments Bili Total (test code = Bili Total) 0.5 0.2-1.3 [facility] HospitalVxunvprKNNEHCGRZJTT2111-68-58 13:12:00 Test Item Value Reference Range Interpretation Comments Sodium Lvl (test code = Sodium Lvl) 140 135-145 [facility] HospitalYgqyyqwSCMEOHBZDSHR4484-78-20 13:12:00 Test Item Value Reference Range Interpretation Comments Creatinine Lvl (test code = Creatinine 1.48 0.50-1.40 Lvl) [facility] HospitalIscdggpSWUZNSEJIIJG5661-26-56 13:12:00 Test Item Value Reference Range Interpretation Comments BUN (test code = BUN) 29 7-22 [facility] HospitalLehseabXYHCOXVZYGWU6848-50-09 13:12:00 Test Item Value Reference Range Interpretation Comments Glucose Lvl (test code = Glucose Lvl) 123 70-99 [facility] HospitalHrrjsbnYIYJKTGGKAHG4947-41-40 13:12:00 Test Item Value Reference Range Interpretation Comments ALT (test code = ALT) 20 <=65 [facility] HospitalXmzbartHVUJUKFTGGWU3187-94-40 13:12:00 Test Item Value Reference Range Interpretation Comments AST (test code = AST) 9 <=37 [facility] HospitalTgkdwysGQTKZLLPTRAL5426-61-60 13:12:00 Test Item Value Reference Range Interpretation Comments Alk Phos (test code = Alk Phos) 76 39-136 [facility] HospitalIvhrncvZXQFMSQAWCCF4368-58-78 13:12:00 Test Item Value Reference Range Interpretation Comments Calcium Lvl (test code = Calcium Lvl) 9.2 8.5-10.5 [facility] HospitalCmobyeaTAJBCEBTMSZY7179-40-49 13:12:00 Test Item Value Reference Range Interpretation Comments Albumin Lvl (test code = Albumin Lvl) 4.4 3.5-5.0 [facility] HospitalRavasjoOGOWKUDIGLRM5078-35-81 13:12:00 Test Item Value Reference Range Interpretation Comments Potassium Lvl (test code = Potassium 4.5 3.5-5.1 Lvl) [facility] HospitalMyqcichWBQMPFZFVWAG7802-10-88 13:12:00 Test Item Value Reference Range Interpretation Comments Total Protein (test code = Total 7.6 6.4-8.4 Protein) [facility] HospitalGwebrhoATFWNMLKHRAC9477-67-32 13:12:00 Test Item Value Reference Range Interpretation Comments CO2 (test code = CO2) 28 24-32 [facility] HospitalOqcxujbELRHVWGYRIMP4477-14-83 13:12:00 Test Item Value Reference Range Interpretation Comments Chloride Lvl (test code = Chloride Lvl) 105 95-109 [facility] HospitalSoddwqjCJIBLHNTVT3297-82-72 13:12:00 Test Item Value Reference Range Interpretation Comments Segs (test code = Segs) 60.0 45.0-75.0 [facility] HospitalDjwuhzaQVGMUEXYAO0983-96-87 13:12:00 Test Item Value Reference Range Interpretation Comments Eosinophils (test code = Eosinophils) 3.3 <=4.0 [facility] HospitalWkvmdlgAINPHFISNM1622-90-60 13:12:00 Test Item Value Reference Range Interpretation Comments Monocytes (test code = Monocytes) 8.1 2.0-12.0 [facility] HospitalFnpfyvhAPHOEPKHYH2367-74-31 13:12:00 Test Item Value Reference Range Interpretation Comments Lymphocytes (test code = Lymphocytes) 27.4 20.0-40.0 [facility] HospitalEfktlluYDVXFXLRVG3593-44-40 13:12:00 Test Item Value Reference Range Interpretation Comments Monocytes # (test code = Monocytes #) 0.5 <=0.8 [facility] HospitalDplzkbyGHGIOTQNKE6878-02-14 13:12:00 Test Item Value Reference Range Interpretation Comments Basophils (test code = Basophils) 1.2 <=1.0 [facility] HospitalJxyqzijMHZZUDVMQC6859-22-92 13:12:00 Test Item Value Reference Range Interpretation Comments Lymphocytes # (test code = Lymphocytes 1.7 1.0-5.5 #) [facility] HospitalCyjziohBLNITIUNYV3287-09-68 13:12:00 Test Item Value Reference Range Interpretation Comments Segs-Bands # (test code = Segs-Bands #) 3.6 1.5-8.1 [facility] HospitalEzruheqMNALGXOUNX9882-00-56 13:12:00 Test Item Value Reference Range Interpretation Comments Eosinophils # (test code = Eosinophils 0.2 <=0.5 #) [facility] HospitalZdczhlmPMYWULNDLJ4695-88-92 13:12:00 Test Item Value Reference Range Interpretation Comments Basophils # (test code = Basophils #) 0.1 <=0.2 [facility] HospitalPyjodzdFHMPBZYHVB2522-43-97 13:12:00 Test Item Value Reference Range Interpretation Comments Hgb (test code = Hgb) 13.9 14.0-18.0 [facility] HospitalItabkhaZYMPPFGIZE1679-41-84 13:12:00 Test Item Value Reference Range Interpretation Comments RBC (test code = RBC) 4.57 4.70-6.10 [facility] HospitalExycscpZPEAHLRANC2453-50-61 13:12:00 Test Item Value Reference Range Interpretation Comments WBC (test code = WBC) 6.1 3.7-10.4 [facility] HospitalAqmxowgJJHBRZYMNI0055-56-58 13:12:00 Test Item Value Reference Range Interpretation Comments Hct (test code = Hct) 40.6 42.0-54.0 [facility] HospitalLpdwcnwITNMIBHSRL8767-91-28 13:12:00 Test Item Value Reference Range Interpretation Comments MCH (test code = MCH) 30.4 pg 27.0-31.0 [facility] HospitalTbbcfyfBTYTPHQNTZ7597-44-51 13:12:00 Test Item Value Reference Range Interpretation Comments MCV (test code = MCV) 88.9 80.0-94.0 [facility] HospitalYvprhboQQKTVURXXU4716-04-05 13:12:00 Test Item Value Reference Range Interpretation Comments MCHC (test code = MCHC) 34.2 32.0-36.0 [facility]FnxffusYUABFLQDLE2701-52-99 13:12:00 Test Item Value Reference Range Interpretation Comments Platelet (test code = Platelet) 196 133-450 [facility] HospitalNgbtywaKNVEETFMZZ0805-00-32 13:12:00 Test Item Value Reference Range Interpretation Comments RDW (test code = RDW) 13.7 11.5-14.5 [facility] HospitalQuzhwezUIWXPJAYLD0733-68-75 13:12:00 Test Item Value Reference Range Interpretation Comments MPV (test code = MPV) 8.5 7.4-10.4 [facility] SouthFumcneaZUQGWS2103-14-00 13:12:00 Test Item Value Reference Range Interpretation Comments HDL (test code = HDL) 75 [facility] SouthAufynpzAFHKGR7801-48-13 13:12:00 Test Item Value Reference Range Interpretation Comments Chol (test code = Chol) 143 [facility] SouthPuyaptwELGCIQ1763-17-06 13:12:00 Test Item Value Reference Range Interpretation Comments VLDL (test code = VLDL) 19 [facility] SouthOwaxxbuQLMTRO3071-49-14 13:12:00 Test Item Value Reference Range Interpretation Comments Trig (test code = Trig) 94 [facility] SouthRqdttpnNNMNYP4727-66-24 13:12:00 Test Item Value Reference Range Interpretation Comments LDL (Calculated) (test code = LDL 49 (Calculated)) [facility] SouthFiqjpdgWMYOBP3592-65-66 13:12:00 Test Item Value Reference Range Interpretation Comments CHD Risk (test code = CHD Risk) 1.91 4.00-7.30 [facility] HGUPRTVTR0462-65-03 13:12:00 Test Item Value Reference Range Interpretation Comments Hgb A1C (test code = Hgb A1C) 6.9 [facility]annWE[facility] AND [id number] 13:12:00 Test Item Value Reference Range Interpretation Comments UA Color (test code = UA Color) Ltyellow [facility] AND [id number] 13:12:00 Test Item Value Reference Range Interpretation Comments UA Urobilinogen (test code = UA <=1.0 mg/dL 0.1-1.0 Urobilinogen) [facility] [id number] 13:12:00 Test Item Value Reference Range Interpretation Comments UA Ketones (test code = UA Negative mg/dL Ketones) [facility] AND [id number] 13:12:00 Test Item Value Reference Range Interpretation Comments UA Glucose (test code = UA Negative mg/dL Glucose) [facility] AND [id number] 13:12:00 Test Item Value Reference Range Interpretation Comments UA Protein (test code = UA Protein) 100 mg/dL [facility] AND [id number] 13:12:00 Test Item Value Reference Range Interpretation Comments UA Leuk Est (test Negative (09/28/15 8:12 code = UA Leuk Est) AM) [facility] AND [id number] 13:12:00 Test Item Value Reference Range Interpretation Comments UA Nitrite (test code Negative (09/28/15 8:12 = UA Nitrite) AM) [facility] AND [id number] 13:12:00 Test Item Value Reference Range Interpretation Comments UA Bili (test code = Negative *NA*(09/28/15 UA Bili) 8:12 AM) [facility] AND [id number] 13:12:00 Test Item Value Reference Range Interpretation Comments UA Sq Epi (test code = UA Sq Epi) None Seen [facility] AND [id number] 13:12:00 Test Item Value Reference Range Interpretation Comments UA Blood (test code = Negative (09/28/15 8:12 UA Blood) AM) [facility] AND [id number] 13:12:00 Test Item Value Reference Range Interpretation Comments UA pH (test code = UA pH) 6.0 5.0-8.0 [facility] AND [id number] 13:12:00 Test Item Value Reference Range Interpretation Comments UA Spec Grav (test code = UA Spec Grav) 1.010 [facility] AND [id number] 13:12:00 Test Item Value Reference Range Interpretation Comments UA Turbidity (test code = Clear (09/28/15 8:12 UA Turbidity) AM) [facility] [id number] 13:12:00 Test Item Value Reference Range Interpretation Comments U Alb/Crea (test code = U Alb/Crea) 712.8 [facility] [id number] 13:12:00 Test Item Value Reference Range Interpretation Comments U Microalb (test code = U Microalb) 345.0 [facility] [id number] 13:12:00 Test Item Value Reference Range Interpretation Comments U Creatinine (test code = U Creatinine) 48.40 [facility] [id number] 13:12:00 Test Item Value Reference Range Interpretation Comments Uric Acid (test code = Uric Acid) 7.9 3.8-8.0 [facility]cdoZQMBDTVVBFSW2629-87-85 13:12:00 Test Item Value Reference Range Interpretation Comments AGAP (test code = AGAP) 11.5 10.0-20.0 [facility]XjevzldIQNQPQMFHSKY2089-68-60 13:12:00 Test Item Value Reference Range Interpretation Comments B/C Ratio (test code = B/C Ratio) 20 6-25 [facility] HospitalRgycgvgRWJHJLEYCWHA2070-71-70 13:12:00 Test Item Value Reference Range Interpretation Comments Globulin (test code = Globulin) 3.2 2.0-4.0 [facility] HospitalAsvsymbMGQRDCWSXSIO5783-07-28 13:12:00 Test Item Value Reference Range Interpretation Comments A/G Ratio (test code = A/G Ratio) 1.4 0.7-1.6 [facility] HospitalZarbrihWPGGUNYPAMKT1875-57-49 13:12:00 Test Item Value Reference Range Interpretation Comments eGFR (test code = eGFR) 49 [facility] HospitalMjprwyjTGMWXNVNPFCX3298-91-81 13:12:00 Test Item Value Reference Range Interpretation Comments Bili Total (test code = Bili Total) 0.5 0.2-1.3 [facility] HospitalIcjpjtoJQVCZDTVGLDT4540-80-26 13:12:00 Test Item Value Reference Range Interpretation Comments Sodium Lvl (test code = Sodium Lvl) 140 135-145 [facility] HospitalFxljrrwZHESHRUEFVQB6339-90-03 13:12:00 Test Item Value Reference Range Interpretation Comments Creatinine Lvl (test code = Creatinine 1.48 0.50-1.40 Lvl) [facility] HospitalVvbifwqUUKYERSBLXXX5724-13-87 13:12:00 Test Item Value Reference Range Interpretation Comments BUN (test code = BUN) 29 7-22 [facility] HospitalCsdeytmBCNPUNDCAVSA1530-28-58 13:12:00 Test Item Value Reference Range Interpretation Comments Glucose Lvl (test code = Glucose Lvl) 123 70-99 [facility] HospitalIbqduorKTXHGRBFMTBD7718-86-74 13:12:00 Test Item Value Reference Range Interpretation Comments ALT (test code = ALT) 20 See_Comment [Auto mated message] The system which ge nerated this result transmit todd reference range : <=65. The reference range was not used to interpr et this result as kimberli l/abnormal. [facility] HospitalTgmtoomIGRVEMPJZAXQ5160-21-79 13:12:00 Test Item Value Reference Range Interpretation Comments AST (test code = AST) 9 See_Comment [Auto mated message] The system which ge nerated this result transmit todd reference range : <=37. The reference range was not used to interpr et this result as kimberli l/abnormal. [facility] HospitalNwpioclTDGOLRGNCYDU8394-65-21 13:12:00 Test Item Value Reference Range Interpretation Comments Alk Phos (test code = Alk Phos) 76 39-136 [facility] HospitalNnawnevVPSIWJGUUGIX9966-02-61 13:12:00 Test Item Value Reference Range Interpretation Comments Calcium Lvl (test code = Calcium Lvl) 9.2 8.5-10.5 [facility] HospitalLabezirUOALVIPIIQKT9652-53-29 13:12:00 Test Item Value Reference Range Interpretation Comments Albumin Lvl (test code = Albumin Lvl) 4.4 3.5-5.0 [facility] HospitalLscqimoOXLCNKDSDODF0491-98-13 13:12:00 Test Item Value Reference Range Interpretation Comments Potassium Lvl (test code = Potassium 4.5 3.5-5.1 Lvl) [facility] HospitalFlyvgeoCHFLIGJXOOZK4201-72-94 13:12:00 Test Item Value Reference Range Interpretation Comments Total Protein (test code = Total 7.6 6.4-8.4 Protein) [facility] HospitalUatcumhCCCFVSPBOZJB5993-43-90 13:12:00 Test Item Value Reference Range Interpretation Comments CO2 (test code = CO2) 28 24-32 [facility] HospitalTxtblgtHNCWYZNVKVCH6607-55-01 13:12:00 Test Item Value Reference Range Interpretation Comments Chloride Lvl (test code = Chloride Lvl) 105 95-109 [facility]JmgynraQJCGUGGMIJ3033-09-89 13:12:00 Test Item Value Reference Range Interpretation Comments Segs (test code = Segs) 60.0 45.0-75.0 [facility] HospitalIifroljHYYAPRRVQC6446-26-19 13:12:00 Test Item Value Reference Range Interpretation Comments Eosinophils (test code = 3.3 See_Comment [A utomated message] The Eosinophils) system which ge nerated this result tra nsmitted reference range : <=4.0. The reference r carolynn was not used to int erpret this result as normal/abnormal . [facility] HospitalSfmmyxcELXWSSTPXA3632-68-80 13:12:00 Test Item Value Reference Range Interpretation Comments Monocytes (test code = Monocytes) 8.1 2.0-12.0 [facility] HospitalFjteumdTUREVWYRNJ5591-69-37 13:12:00 Test Item Value Reference Range Interpretation Comments Lymphocytes (test code = Lymphocytes) 27.4 20.0-40.0 [facility] HospitalGljsjbyRTLOXWGNHQ7997-49-29 13:12:00 Test Item Value Reference Range Interpretation Comments Monocytes # (test code 0.5 See_Comment [Aut omated message] The = Monocytes #) system which generated this result tra nsmitted reference range : <=0.8. The reference r carolynn was not used to int erpret this result as normal/abnormal . [facility] HospitalCggmcyuPASCGHBYCZ2916-46-32 13:12:00 Test Item Value Reference Range Interpretation Comments Basophils (test code = 1.2 See_Comment [Aut omated message] The Basophils) system which ge nerated this result tra nsmitted reference range : <=1.0. The reference r carolynn was not used to int erpret this result as normal/abnormal . [facility] HospitalExsnrifYRSHACCYWL1695-20-54 13:12:00 Test Item Value Reference Range Interpretation Comments Lymphocytes # (test code = Lymphocytes 1.7 1.0-5.5 #) [facility] HospitalCuebfdlIFHWZJPGGK4365-08-93 13:12:00 Test Item Value Reference Range Interpretation Comments Segs-Bands # (test code = Segs-Bands #) 3.6 1.5-8.1 [facility] HospitalNuggcgbOPRSTHVRYT3409-78-31 13:12:00 Test Item Value Reference Range Interpretation Comments Eosinophils # (test code 0.2 See_Comment [A utomated message] The = Eosinophils #) system whic h generated this result tra nsmitted reference range : <=0.5. The reference r carolynn was not used to int erpret this result as normal/abnormal . [facility] HospitalWtbxnlnWBUUZDKNSC2479-04-54 13:12:00 Test Item Value Reference Range Interpretation Comments Basophils # (test code 0.1 See_Comment [Aut omated message] The = Basophils #) system which generated this result tra nsmitted reference range : <=0.2. The reference r carolynn was not used to int erpret this result as normal/abnormal . [facility] HospitalRntxiirDWUOWSBJQV6501-39-69 13:12:00 Test Item Value Reference Range Interpretation Comments Hgb (test code = Hgb) 13.9 14.0-18.0 [facility] HospitalHouzswaISBIRRYMAT5211-74-27 13:12:00 Test Item Value Reference Range Interpretation Comments RBC (test code = RBC) 4.57 4.70-6.10 [facility] HospitalWmqncotQXJOZKEGXY8306-37-47 13:12:00 Test Item Value Reference Range Interpretation Comments WBC (test code = WBC) 6.1 3.7-10.4 [facility] HospitalSlofzmkFMKMYBYPGM0202-40-37 13:12:00 Test Item Value Reference Range Interpretation Comments Hct (test code = Hct) 40.6 42.0-54.0 [facility] HospitalSchhfubFYGOILUSQI2988-77-71 13:12:00 Test Item Value Reference Range Interpretation Comments MCH (test code = MCH) 30.4 pg 27.0-31.0 [facility] HospitalOdczmroOEJPYTHBTZ6298-97-10 13:12:00 Test Item Value Reference Range Interpretation Comments MCV (test code = MCV) 88.9 80.0-94.0 [facility] HospitalGnlrxbnQRYFZUXRMN9317-97-99 13:12:00 Test Item Value Reference Range Interpretation Comments MCHC (test code = MCHC) 34.2 32.0-36.0 [facility] HospitalVtubkudCYUSQVKNGI3981-92-76 13:12:00 Test Item Value Reference Range Interpretation Comments Platelet (test code = Platelet) 196 133-450 [facility] HospitalLhqfzceXGYOGAAERT5495-17-63 13:12:00 Test Item Value Reference Range Interpretation Comments RDW (test code = RDW) 13.7 11.5-14.5 [facility] HospitalVaruncuWTSYPUHUGF9465-89-33 13:12:00 Test Item Value Reference Range Interpretation Comments MPV (test code = MPV) 8.5 7.4-10.4 [facility] SouthBhivhofRBYYVX8645-62-23 13:12:00 Test Item Value Reference Range Interpretation Comments HDL (test code = HDL) 75 [facility] SouthCuxxksvUIPGXK9683-51-44 13:12:00 Test Item Value Reference Range Interpretation Comments Chol (test code = Chol) 143 [facility] SouthEmqejvaUXQHUO4327-16-09 13:12:00 Test Item Value Reference Range Interpretation Comments VLDL (test code = VLDL) 19 [facility] SouthJxbsbbjTNAADZ9117-66-28 13:12:00 Test Item Value Reference Range Interpretation Comments Trig (test code = Trig) 94 [facility] SouthBywzkxzHNERCP2137-72-99 13:12:00 Test Item Value Reference Range Interpretation Comments LDL (Calculated) (test code = LDL 49 (Calculated)) [facility] SouthDgonxqmDXZZFG4821-97-95 13:12:00 Test Item Value Reference Range Interpretation Comments CHD Risk (test code = CHD Risk) 1.91 4.00-7.30 [facility] GFPABLBTB4017-47-12 13:12:00 Test Item Value Reference Range Interpretation Comments Hgb A1C (test code = Hgb A1C) 6.9 [facility] AND [id number] 13:12:00 Test Item Value Reference Range Interpretation Comments UA Color (test code = UA Color) Ltyellow [facility] AND [id number] 13:12:00 Test Item Value Reference Range Interpretation Comments UA Urobilinogen (test code = UA <=1.0 mg/dL 0.1-1.0 Urobilinogen) [facility] AND [id number] 13:12:00 Test Item Value Reference Range Interpretation Comments UA Ketones (test code = UA Negative mg/dL Ketones) [facility] AND [id number] 13:12:00 Test Item Value Reference Range Interpretation Comments UA Glucose (test code = UA Negative mg/dL Glucose) [facility] AND [id number] 13:12:00 Test Item Value Reference Range Interpretation Comments UA Protein (test code = UA Protein) 100 mg/dL [facility] AND [id number] 13:12:00 Test Item Value Reference Range Interpretation Comments UA Leuk Est (test Negative (09/28/15 8:12 code = UA Leuk Est) AM) [facility] AND [id number] 13:12:00 Test Item Value Reference Range Interpretation Comments UA Nitrite (test code Negative (09/28/15 8:12 = [facility]A Nitrite) AM) [facility] [id number] 13:12:00 Test Item Value Reference Range Interpretation Comments UA Bili (test code = Negative *NA*(09/28/15 UA Bili) 8:12 AM) [facility] [id number] 13:12:00 Test Item Value Reference Range Interpretation Comments UA Sq Epi (test code = UA Sq Epi) None [facility]en [facility] [id number] 13:12:00 Test Item Value Reference Range Interpretation Comments UA Blood (test code = Negative (09/28/15 8:12 UA Blood) AM) [facility] [id number] 13:12:00 Test Item Value Reference Range Interpretation Comments UA pH (test code = UA pH) 6.0 5.0-8.0 [facility] [id number] 13:12:00 Test Item Value Reference Range Interpretation Comments UA Spec Grav (test code = UA Spec Grav) 1.010 [facility] [id number] 13:12:00 Test Item Value Reference Range Interpretation Comments UA Turbidity (test code = Clear (09/28/15 8:12 UA Turbidity) AM) [facility] [id number] 13:12:00 Test Item Value Reference Range Interpretation Comments U Alb/Crea (test code = U Alb/Crea) 712.8 [facility] [id number] 13:12:00 Test Item Value Reference Range Interpretation Comments U Microalb (test code = U Microalb) 345.0 [facility] [id number] 13:12:00 Test Item Value Reference Range Interpretation Comments U Creatinine (test code = U Creatinine) 48.40 [facility] [id number] 13:12:00 Test Item Value Reference Range Interpretation Comments Uric Acid (test code = Uric Acid) 7.9 3.8-8.0 [facility] QfcwypvNSLVPMKGHUXC8535-50-98 13:12:00 Test Item Value Reference Range Interpretation Comments AGAP (test code = AGAP) 11.5 10.0-20.0 [facility] RuypdmgFQSIEDSJTNAJ7536-56-73 13:12:00 Test Item Value Reference Range Interpretation Comments B/C Ratio (test code = B/C Ratio) 20 6-25 [facility] HospitalCjfqsogDDWZOKZETAMJ1848-59-98 13:12:00 Test Item Value Reference Range Interpretation Comments Globulin (test code = Globulin) 3.2 2.0-4.0 [facility] HospitalBkcllajANWSCPWVRMLP3003-48-27 13:12:00 Test Item Value Reference Range Interpretation Comments A/G Ratio (test code = A/G Ratio) 1.4 0.7-1.6 [facility] HospitalEcmkcpkDATGPJXOLBPL7974-25-21 13:12:00 Test Item Value Reference Range Interpretation Comments eGFR (test code = eGFR) 49 [facility] HospitalCattgrrYJRFHUPVZHDS6967-71-33 13:12:00 Test Item Value Reference Range Interpretation Comments Bili Total (test code = Bili Total) 0.5 0.2-1.3 [facility] HospitalWkluusgNDCRLRWQGVRN2643-43-16 13:12:00 Test Item Value Reference Range Interpretation Comments Sodium Lvl (test code = Sodium Lvl) 140 135-145 [facility] HospitalUsjwmwaEBLMCPAWKGWE6997-50-28 13:12:00 Test Item Value Reference Range Interpretation Comments Creatinine Lvl (test code = Creatinine 1.48 0.50-1.40 Lvl) [facility] HospitalYvbjlopODSWUQQFPEYX9802-83-28 13:12:00 Test Item Value Reference Range Interpretation Comments BUN (test code = BUN) 29 7-22 [facility] HospitalXwwskszHVYLHTSQDNSH2643-45-59 13:12:00 Test Item Value Reference Range Interpretation Comments Glucose Lvl (test code = Glucose Lvl) 123 70-99 [facility] HospitalFcudikfORCPJUVDFASU3211-75-90 13:12:00 Test Item Value Reference Range Interpretation Comments ALT (test code = ALT) 20 See_Comment [Auto mated message] The system which ge nerated this result transmit todd reference range : <=65. The reference range was not used to interpr et this result as kimberli l/abnormal. [facility] HospitalGmiwxncQWWCTDQJRRZR6209-07-65 13:12:00 Test Item Value Reference Range Interpretation Comments AST (test code = AST) 9 See_Comment [Auto mated message] The system which ge nerated this result transmit todd reference range : <=37. The reference range was not used to interpr et this result as kimberli l/abnormal. [facility] HospitalKmpuewqTTBERHFSLLOZ6855-36-00 13:12:00 Test Item Value Reference Range Interpretation Comments Alk Phos (test code = Alk Phos) 76 39-136 [facility] HospitalAhvhlnsCAAMVDDMSTMZ2222-54-96 13:12:00 Test Item Value Reference Range Interpretation Comments Calcium Lvl (test code = Calcium Lvl) 9.2 8.5-10.5 [facility] HospitalAnjpmatKYSYFMTPHRIJ5041-87-87 13:12:00 Test Item Value Reference Range Interpretation Comments Albumin Lvl (test code = Albumin Lvl) 4.4 3.5-5.0 [facility] HospitalQrnqfpcCIELVFHLPIGP8627-67-14 13:12:00 Test Item Value Reference Range Interpretation Comments Potassium Lvl (test code = Potassium 4.5 3.5-5.1 Lvl) [facility] HospitalQacpxghPJLHJTDMVUNJ7921-30-30 13:12:00 Test Item Value Reference Range Interpretation Comments Total Protein (test code = Total 7.6 6.4-8.4 Protein) [facility] HospitalRzenlwuQYPXSCYTTGMH4976-37-10 13:12:00 Test Item Value Reference Range Interpretation Comments CO2 (test code = CO2) 28 24-32 [facility] HospitalKeuymudVNDOILWAIIUH7452-78-34 13:12:00 Test Item Value Reference Range Interpretation Comments Chloride Lvl (test code = Chloride Lvl) 105 95-109 [facility] HospitalQqavshzMIYTSQJTMD3046-56-05 13:12:00 Test Item Value Reference Range Interpretation Comments Segs (test code = Segs) 60.0 45.0-75.0 [facility] HospitalNtvopgpEVRWKYPDVF7594-35-11 13:12:00 Test Item Value Reference Range Interpretation Comments Eosinophils (test code = 3.3 See_Comment [A utomated message] The Eosinophils) system which ge nerated this result tra nsmitted reference range : <=4.0. The reference r carolynn was not used to int erpret this result as normal/abnormal . [facility] HospitalNpedcdtUERDEJQKGS4574-91-86 13:12:00 Test Item Value Reference Range Interpretation Comments Monocytes (test code = Monocytes) 8.1 2.0-12.0 [facility] HospitalHeaqqxvWVBLELJHFN0020-29-74 13:12:00 Test Item Value Reference Range Interpretation Comments Lymphocytes (test code = Lymphocytes) 27.4 20.0-40.0 [facility] HospitalYhewhpdXEIGTJDRDS8465-29-57 13:12:00 Test Item Value Reference Range Interpretation Comments Monocytes # (test code 0.5 See_Comment [Aut omated message] The = Monocytes #) system which generated this result tra nsmitted reference range : <=0.8. The reference r carolynn was not used to int erpret this result as normal/abnormal . [facility] HospitalWrklvcaHMUVRXYDJU1447-48-80 13:12:00 Test Item Value Reference Range Interpretation Comments Basophils (test code = 1.2 See_Comment [Aut omated message] The Basophils) system which ge nerated this result tra nsmitted reference range : <=1.0. The reference r carolynn was not used to int erpret this result as normal/abnormal . [facility] HospitalEmrnyteKAUZZPTYKT5849-05-34 13:12:00 Test Item Value Reference Range Interpretation Comments Lymphocytes # (test code = Lymphocytes 1.7 1.0-5.5 #) [facility] HospitalSgcykszGZQDSBIHFV3429-18-72 13:12:00 Test Item Value Reference Range Interpretation Comments Segs-Bands # (test code = Segs-Bands #) 3.6 1.5-8.1 [facility] HospitalIfadmzcLBUKMZDXNQ9396-50-47 13:12:00 Test Item Value Reference Range Interpretation Comments Eosinophils # (test code 0.2 See_Comment [A utomated message] The = Eosinophils #) system whic h generated this result tra nsmitted reference range : <=0.5. The reference r carolynn was not used to int erpret this result as normal/abnormal . [facility] HospitalGmdtobaCHDXYTDGMD9794-68-98 13:12:00 Test Item Value Reference Range Interpretation Comments Basophils # (test code 0.1 See_Comment [Aut omated message] The = Basophils #) system which generated this result tra nsmitted reference range : <=0.2. The reference r carolynn was not used to int erpret this result as normal/abnormal . [facility] HospitalLhyibwlDHGAJFTIBK3710-35-06 13:12:00 Test Item Value Reference Range Interpretation Comments Hgb (test code = Hgb) 13.9 14.0-18.0 [facility] HospitalKwlhubyFLYKONVAJE5477-40-32 13:12:00 Test Item Value Reference Range Interpretation Comments RBC (test code = RBC) 4.57 4.70-6.10 [facility] HospitalAtmtlorXPBEBKXYVC0112-08-88 13:12:00 Test Item Value Reference Range Interpretation Comments WBC (test code = WBC) 6.1 3.7-10.4 [facility] HospitalLrlskzkEWPEHJFMXY5411-20-36 13:12:00 Test Item Value Reference Range Interpretation Comments Hct (test code = Hct) 40.6 42.0-54.0 [facility] HospitalAhqrrzrKGNRLFNZHK2535-97-62 13:12:00 Test Item Value Reference Range Interpretation Comments MCH (test code = MCH) 30.4 pg 27.0-31.0 [facility] HospitalRszrodbVAYYYJOBEH0245-72-83 13:12:00 Test Item Value Reference Range Interpretation Comments MCV (test code = MCV) 88.9 80.0-94.0 [facility] HospitalOelbotdQOMGGEAZOU2308-20-31 13:12:00 Test Item Value Reference Range Interpretation Comments MCHC (test code = MCHC) 34.2 32.0-36.0 [facility] HospitalZtvosjwUQQKXYBOWZ7954-27-85 13:12:00 Test Item Value Reference Range Interpretation Comments Platelet (test code = Platelet) 196 133-450 [facility] HospitalDayrwrnRIXASTTNAM2575-50-36 13:12:00 Test Item Value Reference Range Interpretation Comments RDW (test code = RDW) 13.7 11.5-14.5 [facility] HospitalSxdocmrIGAERPCVNX1134-41-71 13:12:00 Test Item Value Reference Range Interpretation Comments MPV (test code = MPV) 8.5 7.4-10.4 [facility]HcmxbtzLOVWHF5122-60-30 13:12:00 Test Item Value Reference Range Interpretation Comments HDL (test code = HDL) 75 [facility] CenterAfwpeuoPLAKDL0638-87-74 13:12:00 Test Item Value Reference Range Interpretation Comments Chol (test code = Chol) 143 [facility] CenterVyhstzgVNCYKW6403-05-64 13:12:00 Test Item Value Reference Range Interpretation Comments VLDL (test code = VLDL) 19 [facility] CenterQrpyrleMVMFBY4529-52-42 13:12:00 Test Item Value Reference Range Interpretation Comments Trig (test code = Trig) 94 [facility] CenterAdizoktEUJSKY6022-57-90 13:12:00 Test Item Value Reference Range Interpretation Comments LDL (Calculated) (test code = LDL 49 (Calculated)) [facility] CenterRqzgpmoNBLBHI3991-48-24 13:12:00 Test Item Value Reference Range Interpretation Comments CHD Risk (test code = CHD Risk) 1.91 4.00-7.30 [facility] QYLPOYSIO9072-62-53 13:12:00 Test Item Value Reference Range Interpretation Comments Hgb A1C (test code = Hgb A1C) 6.9 [facility] AND [id number] 13:12:00 Test Item Value Reference Range Interpretation Comments UA Color (test code = UA Color) Ltyellow [facility] AND [id number] 13:12:00 Test Item Value Reference Range Interpretation Comments UA Urobilinogen (test code = UA <=1.0 mg/dL 0.1-1.0 Urobilinogen) [facility] AND [id number] 13:12:00 Test Item Value Reference Range Interpretation Comments UA Ketones (test code = UA Negative mg/dL Ketones) [facility] AND TELTS9584-23-04 13:12:00 Test Item Value Reference Range Interpretation Comments UA Glucose (test code = UA Negative mg/dL Glucose) [facility] AND [id number] 13:12:00 Test Item Value Reference Range Interpretation Comments UA Protein (test code = UA Protein) 100 mg/dL [facility] AND [id number] 13:12:00 Test Item Value Reference Range Interpretation Comments UA Leuk Est (test Negative (09/28/15 8:12 code = UA Leuk Est) AM) [facility] AND [id number] 13:12:00 Test Item Value Reference Range Interpretation Comments UA Nitrite (test code Negative (09/28/15 8:12 = UA Nitrite) AM) [facility] AND [id number] 13:12:00 Test Item Value Reference Range Interpretation Comments UA Bili (test code = Negative *NA*(09/28/15 UA Bili) 8:12 AM) [facility] AND [id number] 13:12:00 Test Item Value Reference Range Interpretation Comments UA Sq Epi (test code = UA Sq Epi) None Seen [facility] AND [id number] 13:12:00 Test Item Value Reference Range Interpretation Comments UA Blood (test code = Negative (09/28/15 8:12 UA Blood) AM) [facility] AND [id number] 13:12:00 Test Item Value Reference Range Interpretation Comments UA pH (test code = UA pH) 6.0 5.0-8.0 [facility] AND [id number] 13:12:00 Test Item Value Reference Range Interpretation Comments UA Spec Grav (test code = UA Spec Grav) 1.010 [facility] AND [id number] 13:12:00 Test Item Value Reference Range Interpretation Comments UA Turbidity (test code = Clear (09/28/15 8:12 UA Turbidity) AM) [facility] [id number] 13:12:00 Test Item Value Reference Range Interpretation Comments U Alb/Crea (test code = U Alb/Crea) 712.8 [facility] [id number] 13:12:00 Test Item Value Reference Range Interpretation Comments U Microalb (test code = U Microalb) 345.0 [facility] [id number] 13:12:00 Test Item Value Reference Range Interpretation Comments U Creatinine (test code = U Creatinine) 48.40 [facility] [id number] 13:12:00 Test Item Value Reference Range Interpretation Comments Uric Acid (test code = Uric Acid) 7.9 3.8-8.0 [facility]QfnldrlJAZLYFIHUAZR1455-55-25 13:12:00 Test Item Value Reference Range Interpretation Comments AGAP (test code = AGAP) 11.5 10.0-20.0 [facility] HospitalBvksuciYMMWHAKSQZTI3059-99-54 13:12:00 Test Item Value Reference Range Interpretation Comments B/C Ratio (test code = B/C Ratio) 20 6-25 [facility] HospitalScswnbqYWWWEATMVDGV2702-67-72 13:12:00 Test Item Value Reference Range Interpretation Comments Globulin (test code = Globulin) 3.2 2.0-4.0 [facility] HospitalDwmcnaiFGYYOXRQZKCB4341-01-98 13:12:00 Test Item Value Reference Range Interpretation Comments A/G Ratio (test code = A/G Ratio) 1.4 0.7-1.6 [facility] HospitalXtuvnqmWTEOOLHFZYNG5456-03-39 13:12:00 Test Item Value Reference Range Interpretation Comments eGFR (test code = eGFR) 49 [facility] HospitalDfenxagOWNMVGQTVULV5815-59-78 13:12:00 Test Item Value Reference Range Interpretation Comments Bili Total (test code = Bili Total) 0.5 0.2-1.3 [facility] HospitalDddumllYFXDDVXWIYCW2865-89-90 13:12:00 Test Item Value Reference Range Interpretation Comments Sodium Lvl (test code = Sodium Lvl) 140 135-145 [facility] HospitalMdngxreTEZQMSMAAGGL3304-25-02 13:12:00 Test Item Value Reference Range Interpretation Comments Creatinine Lvl (test code = Creatinine 1.48 0.50-1.40 Lvl) [facility] HospitalAzogdklWXIIZZQWGPQD5267-42-28 13:12:00 Test Item Value Reference Range Interpretation Comments BUN (test code = BUN) 29 7-22 [facility] HospitalUhjdarbLLMUXCYCPQZF4188-67-84 13:12:00 Test Item Value Reference Range Interpretation Comments Glucose Lvl (test code = Glucose Lvl) 123 70-99 [facility] HospitalVimpdfnSABADWRTIZZN5047-47-45 13:12:00 Test Item Value Reference Range Interpretation Comments ALT (test code = ALT) 20 See_Comment [Auto mated message] The system which ge nerated this result transmit todd reference range : <=65. The reference range was not used to interpr et this result as kimberli l/abnormal. [facility] HospitalAegnqnbNJSTRIMSPKXH0052-95-91 13:12:00 Test Item Value Reference Range Interpretation Comments AST (test code = AST) 9 See_Comment [Auto mated message] The system which ge nerated this result transmit todd reference range : <=37. The reference range was not used to interpr et this result as kimberli l/abnormal. [facility] HospitalLyfzxwdWSGMBCVGYLOD8378-76-45 13:12:00 Test Item Value Reference Range Interpretation Comments Alk Phos (test code = Alk Phos) 76 39-136 [facility] HospitalErhpnpzVIJEDWSSTMEC2172-28-64 13:12:00 Test Item Value Reference Range Interpretation Comments Calcium Lvl (test code = Calcium Lvl) 9.2 8.5-10.5 [facility] HospitalAukkhtrLKPVXTKTLWAH8398-85-29 13:12:00 Test Item Value Reference Range Interpretation Comments Albumin Lvl (test code = Albumin Lvl) 4.4 3.5-5.0 [facility] HospitalCjvcrakWKYGUNVSMALM1591-90-92 13:12:00 Test Item Value Reference Range Interpretation Comments Potassium Lvl (test code = Potassium 4.5 3.5-5.1 Lvl) [facility] HospitalYkvjgcyTYADQNMNCFGR8766-33-65 13:12:00 Test Item Value Reference Range Interpretation Comments Total Protein (test code = Total 7.6 6.4-8.4 Protein) [facility] HospitalPeafgraRFCAGEDUMBAF9236-83-79 13:12:00 Test Item Value Reference Range Interpretation Comments CO2 (test code = CO2) 28 24-32 [facility] HospitalSrjmfipIUEQOAYWWHOP1292-67-57 13:12:00 Test Item Value Reference Range Interpretation Comments Chloride Lvl (test code = Chloride Lvl) 105 95-109 [facility]ZkccgsjZQVCVDMQYX4521-05-43 13:12:00 Test Item Value Reference Range Interpretation Comments Segs (test code = Segs) 60.0 45.0-75.0 [facility] HospitalHolpbaoPYFRMWTSCU4265-05-70 13:12:00 Test Item Value Reference Range Interpretation Comments Eosinophils (test code = 3.3 See_Comment [A utomated message] The Eosinophils) system which ge nerated this result tra nsmitted reference range : <=4.0. The reference r carolynn was not used to int erpret this result as normal/abnormal . [facility] HospitalGbotwvuDADMYKSXKG3247-76-05 13:12:00 Test Item Value Reference Range Interpretation Comments Monocytes (test code = Monocytes) 8.1 2.0-12.0 [facility] HospitalXcuqwosDAIKGHGOVF0144-79-15 13:12:00 Test Item Value Reference Range Interpretation Comments Lymphocytes (test code = Lymphocytes) 27.4 20.0-40.0 [facility] HospitalUtariysVHEJUPXORX3226-82-19 13:12:00 Test Item Value Reference Range Interpretation Comments Monocytes # (test code 0.5 See_Comment [Aut omated message] The = Monocytes #) system which generated this result tra nsmitted reference range : <=0.8. The reference r carolynn was not used to int erpret this result as normal/abnormal . [facility] HospitalQitjompQWEZVRCQJD9705-78-81 13:12:00 Test Item Value Reference Range Interpretation Comments Basophils (test code = 1.2 See_Comment [Aut omated message] The Basophils) system which ge nerated this result tra nsmitted reference range : <=1.0. The reference r carolynn was not used to int erpret this result as normal/abnormal . [facility] HospitalJzlwhqjHLFHKJRJFR6937-81-10 13:12:00 Test Item Value Reference Range Interpretation Comments Lymphocytes # (test code = Lymphocytes 1.7 1.0-5.5 #) [facility] HospitalBfcbusfCTRKSWSOPT6973-63-45 13:12:00 Test Item Value Reference Range Interpretation Comments Segs-Bands # (test code = Segs-Bands #) 3.6 1.5-8.1 [facility] HospitalHpkqdplJQGALSLPUB8796-71-00 13:12:00 Test Item Value Reference Range Interpretation Comments Eosinophils # (test code 0.2 See_Comment [A utomated message] The = Eosinophils #) system whic h generated this result tra nsmitted reference range : <=0.5. The reference r carolynn was not used to int erpret this result as normal/abnormal . [facility] HospitalPltyeqdAVYROYRGRI2579-80-98 13:12:00 Test Item Value Reference Range Interpretation Comments Basophils # (test code 0.1 See_Comment [Aut omated message] The = Basophils #) system which generated this result tra nsmitted reference range : <=0.2. The reference r carolynn was not used to int erpret this result as normal/abnormal . [facility] HospitalJhsgugsEHBAHJWTRN7003-38-27 13:12:00 Test Item Value Reference Range Interpretation Comments Hgb (test code = Hgb) 13.9 14.0-18.0 [facility] HospitalTykiiuoMJLSKMDFVI7009-08-18 13:12:00 Test Item Value Reference Range Interpretation Comments RBC (test code = RBC) 4.57 4.70-6.10 [facility] HospitalOttczulFNKETEYTRY7787-65-30 13:12:00 Test Item Value Reference Range Interpretation Comments WBC (test code = WBC) 6.1 3.7-10.4 [facility] HospitalWghfcdgWSMOXGYJUB9689-63-38 13:12:00 Test Item Value Reference Range Interpretation Comments Hct (test code = Hct) 40.6 42.0-54.0 [facility] HospitalJtndgfjKBUXTFRJEF9111-06-15 13:12:00 Test Item Value Reference Range Interpretation Comments MCH (test code = MCH) 30.4 pg 27.0-31.0 [facility] HospitalPgckntfOSBVHDGOGI8145-65-02 13:12:00 Test Item Value Reference Range Interpretation Comments MCV (test code = MCV) 88.9 80.0-94.0 [facility] HospitalXxzywwjBPIXYKZUJW7717-76-24 13:12:00 Test Item Value Reference Range Interpretation Comments MCHC (test code = MCHC) 34.2 32.0-36.0 [facility]PyqfvyvNMTMNPKOOB2276-04-17 13:12:00 Test Item Value Reference Range Interpretation Comments Platelet (test code = Platelet) 196 133-450 [facility] SouthDjtfkbyYDRXCXPRMS7749-59-34 13:12:00 Test Item Value Reference Range Interpretation Comments RDW (test code = RDW) 13.7 11.5-14.5 [facility] SouthDpgleqkFOBUCQCOZF3155-71-05 13:12:00 Test Item Value Reference Range Interpretation Comments MPV (test code = MPV) 8.5 7.4-10.4 [facility]JpgwgovWWVFZS0156-80-17 13:12:00 Test Item Value Reference Range Interpretation Comments HDL (test code = HDL) 75 [facility] HospitalEbbdsbgMTRGSP9069-62-24 13:12:00 Test Item Value Reference Range Interpretation Comments Chol (test code = Chol) 143 [facility] SouthIkarmbeTQIPPI4586-37-13 13:12:00 Test Item Value Reference Range Interpretation Comments VLDL (test code = VLDL) 19 [facility] SouthSzyhgvxTJEPFT8136-93-97 13:12:00 Test Item Value Reference Range Interpretation Comments Trig (test code = Trig) 94 [facility] SouthGcqihfzEIOOUM0100-00-04 13:12:00 Test Item Value Reference Range Interpretation Comments LDL (Calculated) (test code = LDL 49 (Calculated)) [facility] SouthUemnkaiGOTIBJ2923-04-92 13:12:00 Test Item Value Reference Range Interpretation Comments CHD Risk (test code = CHD Risk) 1.91 4.00-7.30 [facility] NIPEOLELC0611[facility]28-38 13:12:00 Test Item Value Reference Range Interpretation Comments Hgb A1C (test code = Hgb A1C) 6.9 [facility] AND [id number] 13:12:00 Test Item Value Reference Range Interpretation Comments UA Color (test code = UA Color) Ltyellow [facility] AND [id number] 13:12:00 Test Item Value Reference Range Interpretation Comments UA Urobilinogen (test code = UA <=1.0 mg/dL 0.1-1.0 Urobilinogen) [facility] AND [id number] 13:12:00 Test Item Value Reference Range Interpretation Comments UA Ketones (test code = UA Negative mg/dL Ketones) [facility] AND [id number] 13:12:00 Test Item Value Reference Range Interpretation Comments UA Glucose (test code = UA Negative mg/dL Glucose) [facility] AND [id number] 13:12:00 Test Item Value Reference Range Interpretation Comments UA Protein (test code = UA Protein) 100 mg/dL [facility] AND [id number] 13:12:00 Test Item Value Reference Range Interpretation Comments UA Leuk Est (test Negative (09/28/15 8:12 code = UA Leuk Est) AM) [facility] AND [id number] 13:12:00 Test Item Value Reference Range Interpretation Comments UA Nitrite (test code Negative (09/28/15 8:12 = UA Nitrite) AM) [facility] AND [id number] 13:12:00 Test Item Value Reference Range Interpretation Comments UA Bili (test code = Negative *NA*(09/28/15 UA Bili) 8:12 AM) [facility] AND [id number] 13:12:00 Test Item Value Reference Range Interpretation Comments UA Sq Epi (test code = UA Sq Epi) None Seen [facility] AND [id number] 13:12:00 Test Item Value Reference Range Interpretation Comments UA Blood (test code = Negative (09/28/15 8:12 UA Blood) AM) [facility] AND [id number] 13:12:00 Test Item Value Reference Range Interpretation Comments UA pH (test code = UA pH) 6.0 5.0-8.0 [facility] AND [id number] 13:12:00 Test Item Value Reference Range Interpretation Comments UA Spec Grav (test code = UA Spec Grav) 1.010 [facility] AND [id number] 13:12:00 Test Item Value Reference Range Interpretation Comments UA Turbidity (test code = Clear (09/28/15 8:12 UA Turbidity) AM) [facility] [id number] 13:12:00 Test Item Value Reference Range Interpretation Comments U Alb/Crea (test code = U Alb/Crea) 712.8 [facility] KKWG4207-20-06 13:12:00 Test Item Value Reference Range Interpretation Comments U Microalb (test code = U Microalb) 345.0 [facility]UR[facility] YNLY2540-00-07 13:12:00 Test Item Value Reference Range Interpretation Comments U Creatinine (test code = U Creatinine) 48.40 [facility] SouthCHEM IUTWX7222-90-01 13:12:00 Test Item Value Reference Range Interpretation Comments Uric Acid (test code = Uric Acid) 7.9 3.8-8.0 [facility] HospitalVufzpfsREZOWQMTSQJA5396-38-42 13:12:00 Test Item Value Reference Range Interpretation Comments AGAP (test code = AGAP) 11.5 10.0-20.0 [facility] HospitalVywlouqCTRKSPZEXSLA9159-61-51 13:12:00 Test Item Value Reference Range Interpretation Comments B/C Ratio (test code = B/C Ratio) 20 6-25 [facility] HospitalZrydoytGVPEESGLAIDX4627-52-06 13:12:00 Test Item Value Reference Range Interpretation Comments Globulin (test code = Globulin) 3.2 2.0-4.0 [facility] HospitalDynqelcNWQZADQSZWCH6535-05-17 13:12:00 Test Item Value Reference Range Interpretation Comments A/G Ratio (test code = A/G Ratio) 1.4 0.7-1.6 [facility] HospitalVvqgflvFBYSUSWYSCJK5551-05-08 13:12:00 Test Item Value Reference Range Interpretation Comments eGFR (test code = eGFR) 49 [facility] HospitalXkezhqbDLXPVCOMQDQV8633-24-01 13:12:00 Test Item Value Reference Range Interpretation Comments Bili Total (test code = Bili Total) 0.5 0.2-1.3 [facility] HospitalCagddxuBNCDWHEKIUAJ4744-99-11 13:12:00 Test Item Value Reference Range Interpretation Comments Sodium Lvl (test code = Sodium Lvl) 140 135-145 [facility] HospitalJedjchkIBDTKZFNJWYB3500-17-63 13:12:00 Test Item Value Reference Range Interpretation Comments Creatinine Lvl (test code = Creatinine 1.48 0.50-1.40 Lvl) [facility] HospitalSytagdnGVKJYVQUIOID0551-69-33 13:12:00 Test Item Value Reference Range Interpretation Comments BUN (test code = BUN) 29 7-22 [facility] HospitalSmjchmwUAEROFFWHYIE6724-13-65 13:12:00 Test Item Value Reference Range Interpretation Comments Glucose Lvl (test code = Glucose Lvl) 123 70-99 [facility] HospitalRsqvnhjJCYHGLAKAOFI5341-89-08 13:12:00 Test Item Value Reference Range Interpretation Comments ALT (test code = ALT) 20 See_Comment [Auto mated message] The system which ge nerated this result transmit todd reference range : <=65. The reference range was not used to interpr et this result as kimberli l/abnormal. [facility] HospitalRzeanugGZTSHIJZGHGJ9093-53-50 13:12:00 Test Item Value Reference Range Interpretation Comments AST (test code = AST) 9 See_Comment [Auto mated message] The system which ge nerated this result transmit todd reference range : <=37. The reference range was not used to interpr et this result as kimberli l/abnormal. [facility] HospitalKdhpwxyXXRAVJJZKZSP2767-95-91 13:12:00 Test Item Value Reference Range Interpretation Comments Alk Phos (test code = Alk Phos) 76 39-136 [facility] HospitalIkfoahuWJMGWWXEWRAF3484-65-01 13:12:00 Test Item Value Reference Range Interpretation Comments Calcium Lvl (test code = Calcium Lvl) 9.2 8.5-10.5 [facility] HospitalRjxwmchTXOSFBCBIVDK0590-54-06 13:12:00 Test Item Value Reference Range Interpretation Comments Albumin Lvl (test code = Albumin Lvl) 4.4 3.5-5.0 [facility] HospitalVfaskrdLWBRDHCFFDLW4629-53-79 13:12:00 Test Item Value Reference Range Interpretation Comments Potassium Lvl (test code = Potassium 4.5 3.5-5.1 Lvl) [facility] HospitalSepiinkKZMUDABZFNHB9966-15-97 13:12:00 Test Item Value Reference Range Interpretation Comments Total Protein (test code = Total 7.6 6.4-8.4 Protein) [facility] HospitalZeeqkptAZBKCLFRAQFT4786-63-88 13:12:00 Test Item Value Reference Range Interpretation Comments CO2 (test code = CO2) 28 24-32 [facility] HospitalKfebdvsOQAMPYGLVDEL7134-93-78 13:12:00 Test Item Value Reference Range Interpretation Comments Chloride Lvl (test code = Chloride Lvl) 105 95-109 [facility] HospitalGwhysfsCNMTVYCULM2198-49-85 13:12:00 Test Item Value Reference Range Interpretation Comments Segs (test code = Segs) 60.0 45.0-75.0 [facility] HospitalHuokprxQLEKAKQKWU1546-29-07 13:12:00 Test Item Value Reference Range Interpretation Comments Eosinophils (test code = 3.3 See_Comment [A utomated message] The Eosinophils) system which ge nerated this result tra nsmitted reference range : <=4.0. The reference r carolynn was not used to int erpret this result as normal/abnormal . [facility] HospitalJvmzyrxTDQFBBAODA4727-83-66 13:12:00 Test Item Value Reference Range Interpretation Comments Monocytes (test code = Monocytes) 8.1 2.0-12.0 [facility] HospitalSinypttWDJVLKCDDJ2860-64-32 13:12:00 Test Item Value Reference Range Interpretation Comments Lymphocytes (test code = Lymphocytes) 27.4 20.0-40.0 [facility] HospitalEebotpwAPOAGXKRZK6214-40-92 13:12:00 Test Item Value Reference Range Interpretation Comments Monocytes # (test code 0.5 See_Comment [Aut omated message] The = Monocytes #) system which generated this result tra nsmitted reference range : <=0.8. The reference r carolynn was not used to int erpret this result as normal/abnormal . [facility] HospitalLkhkilbYMLWKOQHPG2472-88-49 13:12:00 Test Item Value Reference Range Interpretation Comments Basophils (test code = 1.2 See_Comment [Aut omated message] The Basophils) system which ge nerated this result tra nsmitted reference range : <=1.0. The reference r carolynn was not used to int erpret this result as normal/abnormal . [facility] HospitalDkhsclaERLFKRJKWP6967-62-71 13:12:00 Test Item Value Reference Range Interpretation Comments Lymphocytes # (test code = Lymphocytes 1.7 1.0-5.5 #) [facility] HospitalCeavucaSISNEWCOQK5178-06-57 13:12:00 Test Item Value Reference Range Interpretation Comments Segs-Bands # (test code = Segs-Bands #) 3.6 1.5-8.1 [facility] HospitalMzveuelZLOBCBBFMI4989-87-98 13:12:00 Test Item Value Reference Range Interpretation Comments Eosinophils # (test code 0.2 See_Comment [A utomated message] The = Eosinophils #) system whic h generated this result tra nsmitted reference range : <=0.5. The reference r carolynn was not used to int erpret this result as normal/abnormal . [facility] HospitalFkdrnblMAAYQJCVUC2239-42-99 13:12:00 Test Item Value Reference Range Interpretation Comments Basophils # (test code 0.1 See_Comment [Aut omated message] The = Basophils #) system which generated this result tra nsmitted reference range : <=0.2. The reference r carolynn was not used to int erpret this result as normal/abnormal . [facility] HospitalDcrxdnlJLEWRISMHK4858-55-03 13:12:00 Test Item Value Reference Range Interpretation Comments Hgb (test code = Hgb) 13.9 14.0-18.0 [facility] HospitalYglwaigVLVDLIVUAY2599-24-35 13:12:00 Test Item Value Reference Range Interpretation Comments RBC (test code = RBC) 4.57 4.70-6.10 [facility] HospitalTmxezfvKKUOCNZNOR8682-71-31 13:12:00 Test Item Value Reference Range Interpretation Comments WBC (test code = WBC) 6.1 3.7-10.4 [facility] HospitalPdibyuxUVRFSYNRPC0683-57-36 13:12:00 Test Item Value Reference Range Interpretation Comments Hct (test code = Hct) 40.6 42.0-54.0 [facility] HospitalCsvqhwjPEHXXUISDP2118-40-72 13:12:00 Test Item Value Reference Range Interpretation Comments MCH (test code = MCH) 30.4 pg 27.0-31.0 [facility] HospitalJrnlrtaAUWZZXXUUZ4886-58-35 13:12:00 Test Item Value Reference Range Interpretation Comments MCV (test code = MCV) 88.9 80.0-94.0 [facility] HospitalAluayfiMZPDPECNQK9410-10-83 13:12:00 Test Item Value Reference Range Interpretation Comments MCHC (test code = MCHC) 34.2 32.0-36.0 [facility] HospitalQumdnduAAFDPLCQPL5914-07-86 13:12:00 Test Item Value Reference Range Interpretation Comments Platelet (test code = Platelet) 196 133-450 [facility] HospitalGfphbcfEXQTXLBKOA9068-60-95 13:12:00 Test Item Value Reference Range Interpretation Comments RDW (test code = RDW) 13.7 11.5-14.5 [facility] HospitalHipelopEQHLKJIMIB2005-48-66 13:12:00 Test Item Value Reference Range Interpretation Comments MPV (test code = MPV) 8.5 7.4-10.4 [facility]im[facility]bENXUKY7019-[facility] 13:12:00 Test Item Value Reference Range Interpretation Comments HDL (test code = HDL) 75 [facility] CenterAybnltiPVABNU0281-83-82 13:12:00 Test Item Value Reference Range Interpretation Comments Chol (test code = Chol) 143 [facility]MgwnhvcKOXRPU9656-01-47 13:12:00 Test Item Value Reference Range Interpretation Comments VLDL (test code = VLDL) 19 [facility] SouthVuptfiuEVXAVR2507-83-42 13:12:00 Test Item Value Reference Range Interpretation Comments Trig (test code = Trig) 94 [facility] SouthCfjkgddOHCLNW9321-27-63 13:12:00 Test Item Value Reference Range Interpretation Comments LDL (Calculated) (test code = LDL 49 (Calculated)) [facility] SouthRaiudxoOFBNJM4392-54-42 13:12:00 Test Item Value Reference Range Interpretation Comments CHD Risk (test code = CHD Risk) 1.91 4.00-7.30 [facility] MZMMVJLEH4867-19-07 13:12:00 Test Item Value Reference Range Interpretation Comments Hgb A1C (test code = Hgb A1C) 6.9 [facility] AND [id number] 13:12:00 Test Item Value Reference Range Interpretation Comments UA Color (test code = UA Color) Ltyellow [facility] AND JJJMD7889-09-32 13:12:00 Test Item Value Reference Range Interpretation Comments UA Urobilinogen (test code = UA <=1.0 mg/dL 0.1-1.0 Urobilinogen) [facility] AND FAKUB0813-01-19 13:12:00 Test Item Value Reference Range Interpretation Comments UA Ketones (test code = UA Negative mg/dL Ketones) [facility] AND [id number] 13:12:00 Test Item Value Reference Range Interpretation Comments UA Glucose (test code = UA Negative mg/dL Glucose) [facility] AND [id number] 13:12:00 Test Item Value Reference Range Interpretation Comments UA Protein (test code = UA Protein) 100 mg/dL [facility] AND [id number] 13:12:00 Test Item Value Reference Range Interpretation Comments UA Leuk Est (test Negative (09/28/15 8:12 code = UA Leuk Est) AM) [facility] AND WGZRQ8712-69-70 13:12:00 Test Item Value Reference Range Interpretation Comments UA Nitrite (test code Negative (09/28/15 8:12 = UA Nitrite) AM) [facility] AND [id number] 13:12:00 Test Item Value Reference Range Interpretation Comments UA Bili (test code = Negative *NA*(09/28/15 UA Bili) 8:12 AM) [facility] [id number] 13:12:00 Test Item Value Reference Range Interpretation Comments UA Sq Epi (test code = UA Sq Epi) None [facility] [id number] 13:12:00 Test Item Value Reference Range Interpretation Comments UA Blood (test code = Negative (09/28/15 8:12 UA Blood) AM) [facility] [id number] 13:12:00 Test Item Value Reference Range Interpretation Comments UA pH (test code = UA pH) 6.0 [facility].0[facility].0 [facility] [id number] 13:12:00 Test Item Value Reference Range Interpretation Comments UA Spec Grav (test code = UA Spec Grav) 1.010 [facility] [id number] 13:12:00 Test Item Value Reference Range Interpretation Comments UA Turbidity (test code = Clear (09/28/15 8:12 UA Turbidity) AM) [facility] [id number] 13:12:00 Test Item Value Reference Range Interpretation Comments U Alb/Crea (test code = U Alb/Crea) 712.8 [id number] 13:12:00 Test Item Value Reference Range Interpretation Comments U Microalb (test code = U Microalb) 345.0 [facility] [id number] 13:12:00 Test Item Value Reference Range Interpretation Comments U Creatinine (test code = U Creatinine) 48.40 [facility] [id number] 13:12:00 Test Item Value Reference Range Interpretation Comments Uric Acid (test code = Uric Acid) 7.9 3.8-8.0 [facility] OqnxrnoMPXYYEVIGXZV9414-98-32 13:12:00 Test Item Value Reference Range Interpretation Comments AGAP (test code = AGAP) 11.5 10.0-20.0 [facility] IftrhqwFIBBTSJKNITG5801-88-03 13:12:00 Test Item Value Reference Range Interpretation Comments B/C Ratio (test code = B/C Ratio) 20 6-25 [facility] DqgzehyKLMOYRQWRPCV4510-40-82 13:12:00 Test Item Value Reference Range Interpretation Comments Globulin (test code = Globulin) 3.2 2.0-4.0 [facility]ijpleXJVNDPDFOBUU9102-94-52 13:12:00 Test Item Value Reference Range Interpretation Comments A/G Ratio (test code = A/G Ratio) 1.4 0.7-1.6 [facility] HospitalVdfyqckLVHCUCFBGQFE5288-89-65 13:12:00 Test Item Value Reference Range Interpretation Comments eGFR (test code = eGFR) 49 [facility] HospitalTtuelemYCVQACSMDXXP1149-44-02 13:12:00 Test Item Value Reference Range Interpretation Comments Bili Total (test code = Bili Total) 0.5 0.2-1.3 [facility] HospitalPnzospfYVASQYZEYWBJ0520-04-36 13:12:00 Test Item Value Reference Range Interpretation Comments Sodium Lvl (test code = Sodium Lvl) 140 135-145 [facility] HospitalYozfzpcSLTRULVBHBUD1647-95-90 13:12:00 Test Item Value Reference Range Interpretation Comments Creatinine Lvl (test code = Creatinine 1.48 0.50-1.40 Lvl) [facility] HospitalWputggwUXQIKUPRQXHS8138-65-11 13:12:00 Test Item Value Reference Range Interpretation Comments BUN (test code = BUN) 29 7-22 [facility] HospitalBwtlhobUPOXGREQIBYO4491-15-72 13:12:00 Test Item Value Reference Range Interpretation Comments Glucose Lvl (test code = Glucose Lvl) 123 70-99 [facility] HospitalZoxyyssKOYMMZNTXGCV6029-07-28 13:12:00 Test Item Value Reference Range Interpretation Comments ALT (test code = ALT) 20 See_Comment [Auto mated message] The system which ge nerated this result transmit todd reference range : <=65. The reference range was not used to interpr et this result as kimberli l/abnormal. [facility] HospitalQztjfvbCYNFWTHDXLNG2010-83-25 13:12:00 Test Item Value Reference Range Interpretation Comments AST (test code = AST) 9 See_Comment [Auto mated message] The system which ge nerated this result transmit todd reference range : <=37. The reference range was not used to interpr et this result as kimberli l/abnormal. [facility] HospitalXuhqpwaGZLGTHZVQGBX7072-51-65 13:12:00 Test Item Value Reference Range Interpretation Comments Alk Phos (test code = Alk Phos) 76 39-136 [facility] HospitalAslhagmQFQFKGDCZWZP4642-18-03 13:12:00 Test Item Value Reference Range Interpretation Comments Calcium Lvl (test code = Calcium Lvl) 9.2 8.5-10.5 [facility] HospitalDbthdkbIRJLDTSWBNEW2871-97-79 13:12:00 Test Item Value Reference Range Interpretation Comments Albumin Lvl (test code = Albumin Lvl) 4.4 3.5-5.0 [facility] HospitalWqjaxzwASUIPPPLXNQJ5496-99-99 13:12:00 Test Item Value Reference Range Interpretation Comments Potassium Lvl (test code = Potassium 4.5 3.5-5.1 Lvl) [facility] HospitalXjnlifuCKMLYZKBPDNQ9118-51-07 13:12:00 Test Item Value Reference Range Interpretation Comments Total Protein (test code = Total 7.6 6.4-8.4 Protein) [facility] HospitalVtblbajWNPFIBSNYUME4036-01-38 13:12:00 Test Item Value Reference Range Interpretation Comments CO2 (test code = CO2) 28 24-32 [facility] HospitalIyqyloqQFMPGMGBRLGS0453-86-79 13:12:00 Test Item Value Reference Range Interpretation Comments Chloride Lvl (test code = Chloride Lvl) 105 95-109 [facility]QxydbyhBZBDQFJGVG4167-41-81 13:12:00 Test Item Value Reference Range Interpretation Comments Segs (test code = Segs) 60.0 45.0-75.0 [facility] HospitalHfjbiwaFVNKQQJTXX9662-90-53 13:12:00 Test Item Value Reference Range Interpretation Comments Eosinophils (test code = 3.3 See_Comment [A utomated message] The Eosinophils) system which ge nerated this result tra nsmitted reference range : <=4.0. The reference r carolynn was not used to int erpret this result as normal/abnormal . [facility] HospitalFfltemoRALQNIKPHL4999-69-30 13:12:00 Test Item Value Reference Range Interpretation Comments Monocytes (test code = Monocytes) 8.1 2.0-12.0 [facility] HospitalHeiuduwHCOMLDXFMJ9084-01-05 13:12:00 Test Item Value Reference Range Interpretation Comments Lymphocytes (test code = Lymphocytes) 27.4 20.0-40.0 [facility] HospitalRimlwloKDZKMEXFAX6204-18-18 13:12:00 Test Item Value Reference Range Interpretation Comments Monocytes # (test code 0.5 See_Comment [Aut omated message] The = Monocytes #) system which generated this result tra nsmitted reference range : <=0.8. The reference r carolynn was not used to int erpret this result as normal/abnormal . [facility] HospitalWfpdtapMYZKUPBOGH3667-47-64 13:12:00 Test Item Value Reference Range Interpretation Comments Basophils (test code = 1.2 See_Comment [Aut omated message] The Basophils) system which ge nerated this result tra nsmitted reference range : <=1.0. The reference r carolynn was not used to int erpret this result as normal/abnormal . [facility] HospitalXfbcfzdHOPOETWCYD7631-08-08 13:12:00 Test Item Value Reference Range Interpretation Comments Lymphocytes # (test code = Lymphocytes 1.7 1.0-5.5 #) [facility] HospitalLycvbfrEOXBTXTMFO0512-19-07 13:12:00 Test Item Value Reference Range Interpretation Comments Segs-Bands # (test code = Segs-Bands #) 3.6 1.5-8.1 [facility] HospitalIcskemsFNIZJPXNNV4272-59-65 13:12:00 Test Item Value Reference Range Interpretation Comments Eosinophils # (test code 0.2 See_Comment [A utomated message] The = Eosinophils #) system whic h generated this result tra nsmitted reference range : <=0.5. The reference r carolynn was not used to int erpret this result as normal/abnormal . [facility] HospitalXcrnjebIEQKZKPMWW7318-31-56 13:12:00 Test Item Value Reference Range Interpretation Comments Basophils # (test code 0.1 See_Comment [Aut omated message] The = Basophils #) system which generated this result tra nsmitted reference range : <=0.2. The reference r carolynn was not used to int erpret this result as normal/abnormal . [facility] HospitalXejpeyhPUDUGKNPUI0641-73-22 13:12:00 Test Item Value Reference Range Interpretation Comments Hgb (test code = Hgb) 13.9 14.0-18.0 [facility] HospitalSlcaaeuYEVXMFWBEU4726-83-44 13:12:00 Test Item Value Reference Range Interpretation Comments RBC (test code = RBC) 4.57 4.70-6.10 [facility] HospitalEvmghczBUJJFZKRHV6384-21-60 13:12:00 Test Item Value Reference Range Interpretation Comments WBC (test code = WBC) 6.1 3.7-10.4 [facility]KggfrdlNSVPFJOROK0858-05-36 13:12:00 Test Item Value Reference Range Interpretation Comments Hct (test code = Hct) 40.6 42.0-54.0 [facility] HospitalYgeadasRVSBEWUAAB4267-10-67 13:12:00 Test Item Value Reference Range Interpretation Comments MCH (test code = MCH) 30.4 pg 27.0-31.0 [facility] HospitalXcnrfwsEHWPTHDYNL6286-20-03 13:12:00 Test Item Value Reference Range Interpretation Comments MCV (test code = MCV) 88.9 80.0-94.0 [facility] HospitalBcrpcuqERLYYQOZLR2840-40-10 13:12:00 Test Item Value Reference Range Interpretation Comments MCHC (test code = MCHC) 34.2 32.0-36.0 [facility] HospitalAbwnbijCUSHATGZJH1618-32-73 13:12:00 Test Item Value Reference Range Interpretation Comments Platelet (test code = Platelet) 196 133-450 [facility] HospitalQrupvhrTYNYQLSLUH2865-68-78 13:12:00 Test Item Value Reference Range Interpretation Comments RDW (test code = RDW) 13.7 11.5-14.5 [facility] HospitalAhxokfgEQKAVJVSBN0144-73-39 13:12:00 Test Item Value Reference Range Interpretation Comments MPV (test code = MPV) 8.5 7.4-10.4 [facility]BugcodqOZZJJH6402-94-54 13:12:00 Test Item Value Reference Range Interpretation Comments HDL (test code = HDL) 75 [facility] SouthHgcpudkUZVGRJ9225-73-19 13:12:00 Test Item Value Reference Range Interpretation Comments Chol (test code = Chol) 143 [facility] SouthBjkkrwiEEBZTA1297-72-63 13:12:00 Test Item Value Reference Range Interpretation Comments VLDL (test code = VLDL) 19 [facility] SouthElypftrRWVWSR2717-25-95 13:12:00 Test Item Value Reference Range Interpretation Comments Trig (test code = Trig) 94 [facility] SouthMxmbpaeNVUFSP2760-19-14 13:12:00 Test Item Value Reference Range Interpretation Comments LDL (Calculated) (test code = LDL 49 (Calculated)) [facility] SouthEzjhqflTERZPB3180-08-03 13:12:00 Test Item Value Reference Range Interpretation Comments CHD Risk (test code = CHD Risk) 1.91 4.00-7.30 [facility] TCYOKOKFW0163-98-70 13:12:00 Test Item Value Reference Range Interpretation Comments Hgb A1C (test code = Hgb A1C) 6.9 [facility] AND [id number] 13:12:00 Test Item Value Reference Range Interpretation Comments UA Color (test code = UA Color) Ltyellow [facility] AND ZWFWY2719-70-89 13:12:00 Test Item Value Reference Range Interpretation Comments UA Urobilinogen (test code = UA <=1.0 mg/dL 0.1-1.0 Urobilinogen) [facility] AND [id number] 13:12:00 Test Item Value Reference Range Interpretation Comments UA Ketones (test code = UA Negative mg/dL Ketones) [facility] AND [id number] 13:12:00 Test Item Value Reference Range Interpretation Comments UA Glucose (test code = UA Negative mg/dL Glucose) [facility] AND [id number] 13:12:00 Test Item Value Reference Range Interpretation Comments UA Protein (test code = UA Protein) 100 mg/dL [facility] AND [id number] 13:12:00 Test Item Value Reference Range Interpretation Comments UA Leuk Est (test Negative (09/28/15 8:12 code = UA Leuk Est) AM) [facility] AND [id number] 13:12:00 Test Item Value Reference Range Interpretation Comments UA Nitrite (test code Negative (09/28/15 8:12 = UA Nitrite) AM) [facility] AND [id number] 13:12:00 Test Item Value Reference Range Interpretation Comments UA Bili (test code = Negative *NA*(09/28/15 UA Bili) 8:12 AM) [facility] AND [id number] 13:12:00 Test Item Value Reference Range Interpretation Comments UA Sq Epi (test code = UA Sq Epi) None Seen [facility] AND [id number] 13:12:00 Test Item Value Reference Range Interpretation Comments UA Blood (test code = Negative (09/28/15 8:12 UA Blood) AM) [facility] AND [id number] 13:12:00 Test Item Value Reference Range Interpretation Comments UA pH (test code = UA pH) 6.0 5.0-8.0 [facility] AND [id number] 13:12:00 Test Item Value Reference Range Interpretation Comments UA Spec Grav (test code = UA Spec Grav) 1.010 [facility] [id number] 13:12:00 Test Item Value Reference Range Interpretation Comments UA Turbidity (test code = Clear (09/28/15 8:12 UA Turbidity) AM) [facility] [id number] 13:12:00 Test Item Value Reference Range Interpretation Comments U Alb/Crea (test code = U Alb/Crea) 712.8 [facility] [id number] 13:12:00 Test Item Value Reference Range Interpretation Comments U Microalb (test code = U Microalb) 345.0 [facility] [id number] 13:12:00 Test Item Value Reference Range Interpretation Comments U Creatinine (test code = U Creatinine) 48.40 [facility] [id number] 13:12:00 Test Item Value Reference Range Interpretation Comments Uric Acid (test code = Uric Acid) 7.9 3.8-8.0 [facility] HospitalTfacxazYHLGCCHWYVYP1198-74-07 13:12:00 Test Item Value Reference Range Interpretation Comments AGAP (test code = AGAP) 11.5 10.0-20.0 [facility] HospitalOerthxmSAYYQEAFPBJI7113-15-31 13:12:00 Test Item Value Reference Range Interpretation Comments B/C Ratio (test code = B/C Ratio) 20 6-25 [facility]KoclhebODBVKQLFQZEW0290-16-05 13:12:00 Test Item Value Reference Range Interpretation Comments Globulin (test code = Globulin) 3.2 2.0-4.0 [facility] HospitalHrcqpwsMIRZBUIFRWRN2639-79-34 13:12:00 Test Item Value Reference Range Interpretation Comments A/G Ratio (test code = A/G Ratio) 1.4 0.7-1.6 [facility] HospitalItgldwlJMDFCSQOLWHX5597-63-31 13:12:00 Test Item Value Reference Range Interpretation Comments eGFR (test code = eGFR) 49 [facility] BrookEdsracvJEGVSZBMBIOZ3420-47-95 13:12:00 Test Item Value Reference Range Interpretation Comments Bili Total (test code = Bili Total) 0.5 0.2-1.3 [facility] BrookVbtiqztLMNHUKXWGCSA9685-77-94 13:12:00 Test Item Value Reference Range Interpretation Comments Sodium Lvl (test code = Sodium Lvl) 140 135-145 [facility]MqkidyfQFGAYZYXVCUV7154-81-90 13:12:00 Test Item Value Reference Range Interpretation Comments Creatinine Lvl (test code = Creatinine 1.48 0.50-1.40 Lvl) [facility] HospitalAmdousrTNIEKEYJEAZU6579-23-57 13:12:00 Test Item Value Reference Range Interpretation Comments BUN (test code = BUN) 29 7-22 [facility] HospitalTpbvcxiYYYSCSVWDIFX3782-38-90 13:12:00 Test Item Value Reference Range Interpretation Comments Glucose Lvl (test code = Glucose Lvl) 123 70-99 [facility] HospitalAvlhdftPODYGXYDWNFF0142-14-28 13:12:00 Test Item Value Reference Range Interpretation Comments ALT (test code = ALT) 20 <=65 [facility] HospitalUdahywkCXZMZDJGRCRH1278-42-98 13:12:00 Test Item Value Reference Range Interpretation Comments AST (test code = AST) 9 <=37 [facility] HospitalTwdrfgfBYICEDQTFIZN7362-87-07 13:12:00 Test Item Value Reference Range Interpretation Comments Alk Phos (test code = Alk Phos) 76 39-136 [facility] HospitalYfucqqsFKLIUHNEFTIZ1906-15-47 13:12:00 Test Item Value Reference Range Interpretation Comments Calcium Lvl (test code = Calcium Lvl) 9.2 8.5-10.5 [facility] HospitalDdodmhxTYYDMCYUVHRF7669-71-88 13:12:00 Test Item Value Reference Range Interpretation Comments Albumin Lvl (test code = Albumin Lvl) 4.4 3.5-5.0 [facility] HospitalNrisidkHUZPPXLYZAAU9083-70-19 13:12:00 Test Item Value Reference Range Interpretation Comments Potassium Lvl (test code = Potassium 4.5 3.5-5.1 Lvl) [facility] HospitalGnfxltzORKVQUOZRJXB7823-64-20 13:12:00 Test Item Value Reference Range Interpretation Comments Total Protein (test code = Total 7.6 6.4-8.4 Protein) [facility] HospitalTfepdnqLYCRWHMEQNZI4284-80-46 13:12:00 Test Item Value Reference Range Interpretation Comments CO2 (test code = CO2) 28 24-32 [facility] HospitalDmjhfutPMLTEUHYGZGQ6286-94-59 13:12:00 Test Item Value Reference Range Interpretation Comments Chloride Lvl (test code = Chloride Lvl) 105 95-109 [facility] HospitalTvoahafPVIOHWXWRK5832-24-98 13:12:00 Test Item Value Reference Range Interpretation Comments Segs (test code = Segs) 60.0 45.0-75.0 [facility] HospitalMdglgfaECKMKGSBOZ8085-75-24 13:12:00 Test Item Value Reference Range Interpretation Comments Eosinophils (test code = Eosinophils) 3.3 <=4.0 [facility] HospitalGtkvgqeQUANUFPVBK6330-72-55 13:12:00 Test Item Value Reference Range Interpretation Comments Monocytes (test code = Monocytes) 8.1 2.0-12.0 [facility] HospitalXfdsessJUEJTGOFCH0270-86-17 13:12:00 Test Item Value Reference Range Interpretation Comments Lymphocytes (test code = Lymphocytes) 27.4 20.0-40.0 [facility] HospitalZzknxflUREUGIBZXQ2766-11-98 13:12:00 Test Item Value Reference Range Interpretation Comments Monocytes # (test code = Monocytes #) 0.5 <=0.8 [facility] HospitalRpmivejBGZYIYBPYU1456-11-99 13:12:00 Test Item Value Reference Range Interpretation Comments Basophils (test code = Basophils) 1.2 <=1.0 [facility] HospitalNbyvxzeVQSTONAIDR9967-65-39 13:12:00 Test Item Value Reference Range Interpretation Comments Lymphocytes # (test code = Lymphocytes 1.7 1.0-5.5 #) [facility] HospitalUhbsxvsEMRMMQBIEE4463-98-03 13:12:00 Test Item Value Reference Range Interpretation Comments Segs-Bands # (test code = Segs-Bands #) 3.6 1.5-8.1 [facility] HospitalOtbrsnsDSTOCJBQAZ7586-90-41 13:12:00 Test Item Value Reference Range Interpretation Comments Eosinophils # (test code = Eosinophils 0.2 <=0.5 #) [facility] HospitalZofjzeyHKDFVWORRU0740-26-27 13:12:00 Test Item Value Reference Range Interpretation Comments Basophils # (test code = Basophils #) 0.1 <=0.2 [facility] HospitalIskhfooBXFHTYZJYV7012-33-77 13:12:00 Test Item Value Reference Range Interpretation Comments Hgb (test code = Hgb) 13.9 14.0-18.0 [facility] HospitalRtavuihBNYHAZZICG8322-28-83 13:12:00 Test Item Value Reference Range Interpretation Comments RBC (test code = RBC) 4.57 4.70-6.10 [facility] HospitalRbkqxpgCAHZMQUANM9958-09-44 13:12:00 Test Item Value Reference Range Interpretation Comments WBC (test code = WBC) 6.1 3.7-10.4 [facility] HospitalPvbvtoaFGQHDTOTWY1576-09-69 13:12:00 Test Item Value Reference Range Interpretation Comments Hct (test code = Hct) 40.6 42.0-54.0 [facility] HospitalTaiolzpYKWUDPJDOH9878-08-67 13:12:00 Test Item Value Reference Range Interpretation Comments MCH (test code = MCH) 30.4 pg 27.0-31.0 [facility] HospitalOkkbosiMYREBPWLQL1690-73-67 13:12:00 Test Item Value Reference Range Interpretation Comments MCV (test code = MCV) 88.9 80.0-94.0 [facility] HospitalHnesytzWMIBMMMJEM2490-76-73 13:12:00 Test Item Value Reference Range Interpretation Comments MCHC (test code = MCHC) 34.2 32.0-36.0 [facility] HospitalLcbhamlZUQHXUDECE5939-98-96 13:12:00 Test Item Value Reference Range Interpretation Comments Platelet (test code = Platelet) 196 133-450 [facility] HospitalAdsffsqYPDOFDXLBU2565-07-35 13:12:00 Test Item Value Reference Range Interpretation Comments RDW (test code = RDW) 13.7 11.5-14.5 [facility] HospitalOjdjbjdMFMBKWRHVN9164-78-19 13:12:00 Test Item Value Reference Range Interpretation Comments MPV (test code = MPV) 8.5 7.4-10.4 [facility]ouuz[facility]yOEBHRJ9909-77-14 13:12:00 Test Item Value Reference Range Interpretation Comments HDL (test code = HDL) 75 [facility] CenterDqvhtbdBBXVND1042-82-15 13:12:00 Test Item Value Reference Range Interpretation Comments Chol (test code = Chol) 143 [facility] CenterDupbuqqXYHVEI2333-28-26 13:12:00 Test Item Value Reference Range Interpretation Comments VLDL (test code = VLDL) 19 [facility] CenterZjwzhqnQKJCVA4701-77-50 13:12:00 Test Item Value Reference Range Interpretation Comments Trig (test code = Trig) 94 [facility] CenterJinbapbFLNJKQ3718-77-28 13:12:00 Test Item Value Reference Range Interpretation Comments LDL (Calculated) (test code = LDL 49 (Calculated)) [facility] CenterVomhjgdFMWMMD6633-50-74 13:12:00 Test Item Value Reference Range Interpretation Comments CHD Risk (test code = CHD Risk) 1.91 4.00-7.30 [facility] SDNIHEKOW7781-11-25 13:12:00 Test Item Value Reference Range Interpretation Comments Hgb A1C (test code = Hgb A1C) 6.9 [facility] AND [id number] 13:12:00 Test Item Value Reference Range Interpretation Comments UA Color (test code = UA Color) Ltyellow [facility] AND [id number] 13:12:00 Test Item Value Reference Range Interpretation Comments UA Urobilinogen (test code = UA <=1.0 mg/dL 0.1-1.0 Urobilinogen) [facility] AND [id number] 13:12:00 Test Item Value Reference Range Interpretation Comments UA Ketones (test code = UA Negative mg/dL Ketones) [facility] AND [id number] 13:12:00 Test Item Value Reference Range Interpretation Comments UA Glucose (test code = UA Negative mg/dL Glucose) [facility] AND [id number] 13:12:00 Test Item Value Reference Range Interpretation Comments UA Protein (test code = UA Protein) 100 mg/dL [facility] AND [id number] 13:12:00 Test Item Value Reference Range Interpretation Comments UA Leuk Est (test Negative (09/28/15 8:12 code = UA Leuk Est) AM) [facility] AND [id number] 13:12:00 Test Item Value Reference Range Interpretation Comments UA Nitrite (test code Negative (09/28/15 8:12 = UA Nitrite) AM) [facility] AND [id number] 13:12:00 Test Item Value Reference Range Interpretation Comments UA Bili (test code = Negative *NA*(09/28/15 UA Bili) 8:12 AM) [facility] AND [id number] 13:12:00 Test Item Value Reference Range Interpretation Comments UA Sq Epi (test code = UA Sq Epi) None Seen [facility] AND [id number] 13:12:00 Test Item Value Reference Range Interpretation Comments UA Blood (test code = Negative (09/28/15 8:12 UA Blood) AM) [facility] AND [id number] 13:12:00 Test Item Value Reference Range Interpretation Comments UA pH (test code = UA pH) 6.0 5.0-8.0 [facility] AND [id number] 13:12:00 Test Item Value Reference Range Interpretation Comments UA Spec Grav (test code = UA Spec Grav) 1.010 [facility] AND [id number] 13:12:00 Test Item Value Reference Range Interpretation Comments UA Turbidity (test code = Clear (09/28/15 8:12 UA Turbidity) AM) [facility] [id number] 13:12:00 Test Item Value Reference Range Interpretation Comments U Alb/Crea (test code = U Alb/Crea) 712.8 [facility] [id number] 13:12:00 Test Item Value Reference Range Interpretation Comments U Microalb (test code = U Microalb) 345.0 [facility] [id number] 13:12:00 Test Item Value Reference Range Interpretation Comments U Creatinine (test code = U Creatinine) 48.40 [facility] CJMAC7946-28-60 13:12:00 Test Item Value Reference Range Interpretation Comments Uric Acid (test code = Uric Acid) 7.9 3.8-8.0 [facility]KnpfsohQWKTWWEMOYYB0686-01-48 13:12:00 Test Item Value Reference Range Interpretation Comments AGAP (test code = AGAP) 11.5 10.0-20.0 [facility]PeqqmlcCZTEFBOEIDQO9515-41-24 13:12:00 Test Item Value Reference Range Interpretation Comments B/C Ratio (test code = B/C Ratio) 20 6-25 [facility] HospitalXcoklukCBCXWPOQRHZW7786-66-63 13:12:00 Test Item Value Reference Range Interpretation Comments Globulin (test code = Globulin) 3.2 2.0-4.0 [facility] HospitalOtvmbdiUTNMOAMQMVDX2428-99-87 13:12:00 Test Item Value Reference Range Interpretation Comments A/G Ratio (test code = A/G Ratio) 1.4 0.7-1.6 [facility] HospitalSonyngtWMPGBFNOYUIA4514-02-39 13:12:00 Test Item Value Reference Range Interpretation Comments eGFR (test code = eGFR) 49 [facility] HospitalRhslwnkZVGDCNKRBENM3382-69-16 13:12:00 Test Item Value Reference Range Interpretation Comments Bili Total (test code = Bili Total) 0.5 0.2-1.3 [facility] HospitalXkcsmrrWGGNBIWFITQP7614-45-54 13:12:00 Test Item Value Reference Range Interpretation Comments Sodium Lvl (test code = Sodium Lvl) 140 135-145 [facility] HospitalFcqoltkCIGNFGPIIECX6915-74-24 13:12:00 Test Item Value Reference Range Interpretation Comments Creatinine Lvl (test code = Creatinine 1.48 0.50-1.40 Lvl) [facility]vbqdrdXVGKAUBMFVWS2368-87-69 13:12:00 Test Item Value Reference Range Interpretation Comments BUN (test code = BUN) 29 7-22 [facility]OpxzlpxDCPQAISJFJBQ8209-06-21 13:12:00 Test Item Value Reference Range Interpretation Comments Glucose Lvl (test code = Glucose Lvl) 123 70-99 [facility]OterajnGWCXXGFQPSBV9555-64-88 13:12:00 Test Item Value Reference Range Interpretation Comments ALT (test code = ALT) 20 <=65 [facility]VkrnvadZCKFENJMKBLO1891-80-72 13:12:00 Test Item Value Reference Range Interpretation Comments AST (test code = AST) 9 <=37 [facility]OimvplaFQJEPMXLRVIQ7993-31-50 13:12:00 Test Item Value Reference Range Interpretation Comments Alk Phos (test code = Alk Phos) 76 39-136 [facility]OngfnuiWKXZXKAGYGLQ8329-10-91 13:12:00 Test Item Value Reference Range Interpretation Comments Calcium Lvl (test code = Calcium Lvl) 9.2 8.5-10.5 [facility] HospitalAvmeubhAZEPWGMGNHPW9880-20-89 13:12:00 Test Item Value Reference Range Interpretation Comments Albumin Lvl (test code = Albumin Lvl) 4.4 3.5-5.0 [facility] HospitalBeqvvfyKWSGIDYTRRHO1649-78-12 13:12:00 Test Item Value Reference Range Interpretation Comments Potassium Lvl (test code = Potassium 4.5 3.5-5.1 Lvl) [facility] HospitalRmljnfoEYONCKACZEZP8096-53-93 13:12:00 Test Item Value Reference Range Interpretation Comments Total Protein (test code = Total 7.6 6.4-8.4 Protein) [facility] HospitalRlmrlbtTEZSGRFYLCJJ6893-12-51 13:12:00 Test Item Value Reference Range Interpretation Comments CO2 (test code = CO2) 28 24-32 [facility]VowpfqrSTAYXBIUWEEV9640-96-65 13:12:00 Test Item Value Reference Range Interpretation Comments Chloride Lvl (test code = Chloride Lvl) 105 95-109 [facility]CkcgfbbIFXWRMBWSC7113-20-89 13:12:00 Test Item Value Reference Range Interpretation Comments Segs (test code = Segs) 60.0 45.0-75.0 [facility] HospitalHopwqjjNYYHKSTATH6354-68-51 13:12:00 Test Item Value Reference Range Interpretation Comments Eosinophils (test code = Eosinophils) 3.3 <=4.0 [facility] HospitalEdxdmroGGRFVUTZZH5235-99-79 13:12:00 Test Item Value Reference Range Interpretation Comments Monocytes (test code = Monocytes) 8.1 2.0-12.0 [facility] HospitalDelpytfGQCQMMYHJT3969-30-05 13:12:00 Test Item Value Reference Range Interpretation Comments Lymphocytes (test code = Lymphocytes) 27.4 20.0-40.0 [facility] HospitalBinkgabDBOYCORDOK7355-03-92 13:12:00 Test Item Value Reference Range Interpretation Comments Monocytes # (test code = Monocytes #) 0.5 <=0.8 [facility] HospitalTfinykeOKLNQIYKBB8364-94-27 13:12:00 Test Item Value Reference Range Interpretation Comments Basophils (test code = Basophils) 1.2 <=1.0 [facility] HospitalKroruztIPVDAIALQF3574-91-85 13:12:00 Test Item Value Reference Range Interpretation Comments Lymphocytes # (test code = Lymphocytes 1.7 1.0-5.5 #) [facility] HospitalEpohgtfFEYMHKBIDY8424-55-14 13:12:00 Test Item Value Reference Range Interpretation Comments Segs-Bands # (test code = Segs-Bands #) 3.6 1.5-8.1 [facility] HospitalIxrtacwHXWAFGAAXF3370-51-68 13:12:00 Test Item Value Reference Range Interpretation Comments Eosinophils # (test code = Eosinophils 0.2 <=0.5 #) [facility] HospitalZrwczxlXSGZVRKXSN7750-23-01 13:12:00 Test Item Value Reference Range Interpretation Comments Basophils # (test code = Basophils #) 0.1 <=0.2 [facility] HospitalHtxqhgqXAPUPZFSLG8331-43-63 13:12:00 Test Item Value Reference Range Interpretation Comments Hgb (test code = Hgb) 13.9 14.0-18.0 [facility] HospitalSfmdtrsGBEZATMACC7347-03-27 13:12:00 Test Item Value Reference Range Interpretation Comments RBC (test code = RBC) 4.57 4.70-6.10 [facility] HospitalOxjvfgsZTXBAAGAUN8322-18-58 13:12:00 Test Item Value Reference Range Interpretation Comments WBC (test code = WBC) 6.1 3.7-10.4 [facility] HospitalJojoundZGSSUSMIIT5037-55-81 13:12:00 Test Item Value Reference Range Interpretation Comments Hct (test code = Hct) 40.6 42.0-54.0 [facility] HospitalGwbswgaTUMXKKRLTW0012-29-79 13:12:00 Test Item Value Reference Range Interpretation Comments MCH (test code = MCH) 30.4 pg 27.0-31.0 [facility] HospitalYzkuhgsNBDYYWWDWO7671-56-25 13:12:00 Test Item Value Reference Range Interpretation Comments MCV (test code = MCV) 88.9 80.0-94.0 [facility] HospitalRcpdppqJBUISAKUQB9865-23-20 13:12:00 Test Item Value Reference Range Interpretation Comments MCHC (test code = MCHC) 34.2 32.0-36.0 [facility] HospitalQjfvhtcSWCHCQDSEB3127-55-52 13:12:00 Test Item Value Reference Range Interpretation Comments Platelet (test code = Platelet) 196 133-450 [facility] HospitalAhgsvqaYWOXNZBYWL6582-23-05 13:12:00 Test Item Value Reference Range Interpretation Comments RDW (test code = RDW) 13.7 11.5-14.5 [facility] HospitalQieyflcCULQMOXOXN3861-40-63 13:12:00 Test Item Value Reference Range Interpretation Comments MPV (test code = MPV) 8.5 7.4-10.4 [facility]DixsqsuRBVGZD6829-30-08 13:12:00 Test Item Value Reference Range Interpretation Comments HDL (test code = HDL) 75 [facility] CenterWmhfigiRXNPXH2120-32-90 13:12:00 Test Item Value Reference Range Interpretation Comments Chol (test code = Chol) 143 [facility] CenterDbkzrswRWNOHC0036-75-55 13:12:00 Test Item Value Reference Range Interpretation Comments VLDL (test code = VLDL) 19 [facility] CenterSmqmzdyJMPXUL2506-73-29 13:12:00 Test Item Value Reference Range Interpretation Comments Trig (test code = Trig) 94 [facility] CenterTczpczbVIYHZS9679-08-98 13:12:00 Test Item Value Reference Range Interpretation Comments LDL (Calculated) (test code = LDL 49 (Calculated)) [facility]bfemvxFWQZNP9483-46-51 13:12:00 Test Item Value Reference Range Interpretation Comments CHD Risk (test code = CHD Risk) 1.91 4.00-7.30 [facility] PUBRFUTPS1344[facility]23-71 13:12:00 Test Item Value Reference Range Interpretation Comments Hgb A1C (test code = Hgb A1C) 6.9 [facility] AND ZTYLH9901-36-51 13:12:00 Test Item Value Reference Range Interpretation Comments UA Color (test code = UA Color) Ltyellow [facility] AND SJLFV3925-36-66 13:12:00 Test Item Value Reference Range Interpretation Comments UA Urobilinogen (test code = UA <=1.0 mg/dL 0.1-1.0 Urobilinogen) [facility] AND UMHHL6209-81-34 13:12:00 Test Item Value Reference Range Interpretation Comments UA Ketones (test code = UA Negative mg/dL Ketones) [facility] AND ZYLEI2470-38-88 13:12:00 Test Item Value Reference Range Interpretation Comments UA Glucose (test code = UA Negative mg/dL Glucose) [facility] AND MMLTY6986-92-14 13:12:00 Test Item Value Reference Range Interpretation Comments UA Protein (test code = UA Protein) 100 mg/dL [facility] AND LSXEU0961-50-15 13:12:00 Test Item Value Reference Range Interpretation Comments UA Leuk Est (test Negative (09/28/15 8:12 code = UA Leuk Est) AM) [facility] AND SRPJY1597-64-99 13:12:00 Test Item Value Reference Range Interpretation Comments UA Nitrite (test code Negative (09/28/15 8:12 = UA Nitrite) AM) [facility] AND WPZBN9236-49-91 13:12:00 Test Item Value Reference Range Interpretation Comments UA Bili (test code = Negative *NA*(09/28/15 UA Bili) 8:12 AM) [facility] AND DYKCP3722-19-57 13:12:00 Test Item Value Reference Range Interpretation Comments UA Sq Epi (test code = UA Sq Epi) None Seen [facility] AND [id number] 13:12:00 Test Item Value Reference Range Interpretation Comments UA Blood (test code = Negative (09/28/15 8:12 UA Blood) AM) [facility] [id number] 13:12:00 Test Item Value Reference Range Interpretation Comments UA pH (test code = UA pH) 6.0 5.0-8.0 [facility] AND WNLPQ4196-97-42 13:12:00 Test Item Value Reference Range Interpretation Comments UA Spec Grav (test code = UA Spec Grav) 1.010 [facility] AND OJRYW8942-90-10 13:12:00 Test Item Value Reference Range Interpretation Comments UA Turbidity (test code = Clear (09/28/15 8:12 UA Turbidity) AM) [facility] PIDA2670-59-14 13:12:00 Test Item Value Reference Range Interpretation Comments U Alb/Crea (test code = U Alb/Crea) 712.8 [facility] GWEZ5368-69-35 13:12:00 Test Item Value Reference Range Interpretation Comments U Microalb (test code = U Microalb) 345.0 [facility] DQLK9213-26-02 13:12:00 Test Item Value Reference Range Interpretation Comments U Creatinine (test code = U Creatinine) 48.40 [facility]CHEM QTPAI4149-75-86 13:12:00 Test Item Value Reference Range Interpretation Comments Uric Acid (test code = Uric Acid) 7.9 3.8-8.0 [facility] HospitalVaviwxtIHIJQNWKUIVK5419-31-06 13:12:00 Test Item Value Reference Range Interpretation Comments AGAP (test code = AGAP) 11.5 10.0-20.0 [facility] HospitalSysevpwVTKYFUUNNFVL0978-73-59 13:12:00 Test Item Value Reference Range Interpretation Comments B/C Ratio (test code = B/C Ratio) 20 6-25 [facility] HospitalWgkmpfzVFAEDMCPQDYE3536-60-79 13:12:00 Test Item Value Reference Range Interpretation Comments Globulin (test code = Globulin) 3.2 2.0-4.0 [facility] HospitalHbdiddoCOYCMDGYNAGL9494-83-40 13:12:00 Test Item Value Reference Range Interpretation Comments A/G Ratio (test code = A/G Ratio) 1.4 0.7-1.6 [facility] HospitalSkezclrABFJQXEUSOEN8963-00-82 13:12:00 Test Item Value Reference Range Interpretation Comments eGFR (test code = eGFR) 49 [facility] HospitalFdrikfdRIKXIKTUXAMY2761-30-84 13:12:00 Test Item Value Reference Range Interpretation Comments Bili Total (test code = Bili Total) 0.5 0.2-1.3 [facility] HospitalCbgfxbpMSPVMLIBSVPN6289-23-41 13:12:00 Test Item Value Reference Range Interpretation Comments Sodium Lvl (test code = Sodium Lvl) 140 135-145 [facility] HospitalAldojczCVKYPIYXZFJB4708-36-96 13:12:00 Test Item Value Reference Range Interpretation Comments Creatinine Lvl (test code = Creatinine 1.48 0.50-1.40 Lvl) [facility] HospitalTwwsgfpMOCEMLEZOTCZ0475-91-67 13:12:00 Test Item Value Reference Range Interpretation Comments BUN (test code = BUN) 29 7-22 [facility] HospitalYeigcntORRYDRBWEZVM4055-87-38 13:12:00 Test Item Value Reference Range Interpretation Comments Glucose Lvl (test code = Glucose Lvl) 123 70-99 [facility] HospitalDerwszfZFFLQFEGWUIG2270-43-42 13:12:00 Test Item Value Reference Range Interpretation Comments ALT (test code = ALT) 20 <=65 [facility] HospitalSoejwahSZQXJJAJYYZD7800-46-39 13:12:00 Test Item Value Reference Range Interpretation Comments AST (test code = AST) 9 <=37 [facility] HospitalBlwcgtnLREAZIFUIFQX0154-06-38 13:12:00 Test Item Value Reference Range Interpretation Comments Alk Phos (test code = Alk Phos) 76 39-136 [facility] HospitalMymiczvIBQEWCYQWCVM8725-42-17 13:12:00 Test Item Value Reference Range Interpretation Comments Calcium Lvl (test code = Calcium Lvl) 9.2 8.5-10.5 [facility] HospitalUrcpbkyKBYMVSACHPFI9767-65-46 13:12:00 Test Item Value Reference Range Interpretation Comments Albumin Lvl (test code = Albumin Lvl) 4.4 3.5-5.0 [facility] HospitalFotyopaSVPNLBSHXNWV3306-96-86 13:12:00 Test Item Value Reference Range Interpretation Comments Potassium Lvl (test code = Potassium 4.5 3.5-5.1 Lvl) [facility] HospitalJcvwajkVEXLKRWORJRL8613-18-05 13:12:00 Test Item Value Reference Range Interpretation Comments Total Protein (test code = Total 7.6 6.4-8.4 Protein) [facility] HospitalAubestdFMFVNYFDQUQJ1663-90-20 13:12:00 Test Item Value Reference Range Interpretation Comments CO2 (test code = CO2) 28 24-32 [facility] HospitalJjdfxdtIUYWUSXVGWCA7713-00-49 13:12:00 Test Item Value Reference Range Interpretation Comments Chloride Lvl (test code = Chloride Lvl) 105 95-109 [facility] HospitalRzlhkdxKZDNCBJXBJ6616-80-36 13:12:00 Test Item Value Reference Range Interpretation Comments Segs (test code = Segs) 60.0 45.0-75.0 [facility]KlkydihAWYJVNZPRZ4257-82-70 13:12:00 Test Item Value Reference Range Interpretation Comments Eosinophils (test code = Eosinophils) 3.3 <=4.0 [facility] HospitalCzohxswTKGFLVACUL5338-23-09 13:12:00 Test Item Value Reference Range Interpretation Comments Monocytes (test code = Monocytes) 8.1 2.0-12.0 [facility] HospitalJkztmvcHJHLGKHVCE2182-61-83 13:12:00 Test Item Value Reference Range Interpretation Comments Lymphocytes (test code = Lymphocytes) 27.4 20.0-40.0 [facility] HospitalPrrdpwdBNDHPHEWLP1311-98-22 13:12:00 Test Item Value Reference Range Interpretation Comments Monocytes # (test code = Monocytes #) 0.5 <=0.8 [facility] Consult Notes Date/Time Note Provider Source 2022-10-22 8556-18-61G87:54:00Associated Ermelinda Jeong [facility] 13:54:00 Order(s): CONSULT ADULT PHYSICAL PT THERAPY [...] 01/31/2020 Acute respiratory failure with hypoxia 11/07/2019 Ydaof-sz-apnhcrd kidney injury 11/05/2019 Adhesive capsulitis of left shoulder 04/22/2019 Anxiety Benign prostatic hyperplasia (BPH) with straining on urination 10/21/2020 Cervical spinal stenosis 10/07/2017 Added automatically from request for surgery [id number] Cervicalgia 07/03/2017 Chronic right shoulder pain 04/01/2017 [...] 10/07/2017 Added automatically from request for surgery [id number] Other insomnia 04/01/2017 Postlaminectomy syndrome 12/30/2017 Added automatically from request for surgery [id number] Range of motion deficit 07/03/2017 Right leg pain 11/05/2019 Right upper limb pain 07/03/2017 Sciatic pain, right Spondylosis 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 12/30/2017 Added automatically from request for surgery [id number] Steroid-induced hyperglycemia 02/12/2019 Type 2 diabetes mellitus [...] Right 11/28/2017 Surgeon: Imtiaz Vázquez MD; Location: [facility] RADIOFREQUENCY THERMOCOAGULATION Left 02/06/2018 Surgeon: Imtiaz Vázquez MD; Location: [facility] Ruslan Prior Living Situation: lives alone and in [...] taking pain meds and Nursing NotifiedCOMMUNICATIONPrimary Language: Scottish Able to Verbalize needs: Yes Vision:reading glasses Hearing: mild TLINGIT & HAIDA ORIENTATION/COGNITION:Oriented to: person, place, date/time, and situation [...] 10 minTotal Treatment Time in Minutes: 19 minJasmine J Sabbahi-Fletcher, PT, DPTLicense Number: [id number] [facility] [id number] rsdzRF6487-33-99H52:31:22Consult noteTXT1.2.840.306132.1.13.104.2.7.2 .065604|[id number] for patient vmqp56519-3Vucndbs [id number] J Sabbahi PTUT[address] Larsen [id number] YKBSABVGUPTNGSAGTUJTAN7125-89-90T31: 31:221.2.840.301463.1.72.3.15|1.2.84 0.855989.1.13.104.2.7.2.727879_18793 08933 2022-10-22 8113-78-90U13:54:00Associated Sarah Lui [facility] 13:54:00 Order(s): CONSULT ADULT OCCUPATIONAL [place] O T THERAPY OT GENERAL EVALUATIONConsult received via YouLicense, EMR reviewed and evaluation completed 10/22/22. Patient [...] 01/31/2020 Acute respiratory failure with hypoxia 11/07/2019 Ngyqe-yx-gsbslxc kidney injury 11/05/2019 Adhesive capsulitis of left shoulder 04/22/2019 Anxiety Benign prostatic hyperplasia (BPH) with straining on urination 10/21/2020 Cervical spinal stenosis 10/07/2017 Added automatically from request for surgery [id number] Cervicalgia 07/03/2017 Chronic right shoulder pain 04/01/2017 [...] 10/07/2017 Added automatically from request for surgery [id number] Other insomnia 04/01/2017 Postlaminectomy syndrome 12/30/2017 Added automatically from request for surgery [id number] Range of motion deficit 07/03/2017 Right leg pain 11/05/2019 Right upper limb pain 07/03/2017 Sciatic pain, right Spondylosis 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 12/30/2017 Added automatically from request for surgery [id number] Steroid-induced hyperglycemia 02/12/2019 Type 2 diabetes mellitus with diabetic nephropathy, without long-term current use of insulin 03/29/2017 diet controlled Vitamin D deficiency 11/08/2020 PSH: Past Surgical History: Procedure Laterality Date KNEE ARTHROSCOPY Left MEDIAL BRANCH BLOCK 10/24/2017 MEDIAL BRANCH BLOCK (SHX) Right 10/24/2017 Surgeon: Imtiaz Vázquez MD; Location: [facility] Location OTHER neck surgery RADIOFREQUENCY THERMOCOAGULATION 11/28/2017 RADIOFREQUENCY THERMOCOAGULATION Right 11/28/2017 Surgeon: Imtiaz Vázquez MD; Location: [facility] Location RADIOFREQUENCY THERMOCOAGULATION Left 02/06/2018 Surgeon: Imtiaz Vázquez MD; Location: [facility] Location PAIN: Pain Location: diffuse/generalizedPain rating [...] WNLUE ROM: bilateral AROM WFL UE Strength: RENE UE WFLHand dominance: right Dexterity/Coordination: bilateral Gross [...] verbalizes understanding of teaching provided.Sarah Nye OTR, [facility]Del[facility] of Rehab ServicesTotal Timed Treatment Codes: 15 [...] to enable patient to complete evaluation component. 07694-1Ztqozqh xdswMC8039-88-86Y85:32:10Consult noteTXT1.2.840.490668.1.13.104.2.7.2 .857750|[id number] for patient lxbh05225-0Czkicuj [id number] M. [place] [address] Fc[id number] ERAOGRSKLGYEZSLBCEYGXK6694-49-92I84: 32:101.2.840.922827.1.72.3.15|1.2.84 0.031149.1.13.104.2.7.2.727879_18793 51346 2022-10-22 4750-89-87E18:26:28Associated PROJECT ADMIN-ACUTE CARE [facility] 10:26:28 Order(s): CONSULT CARDIOLOGY-HEART MIDLEVEL PROV IDER FAILURE MEDICAL CONSULTSummary: Increase bumex 0.5 mg BID PO. HF will sign off [facility] HEART FAILURE CONSULTReason for consult: CHFChief complaint: [...] 01/31/2020 Acute respiratory failure with hypoxia 11/07/2019 Wjoqn-nd-ghkwhhs kidney injury 11/05/2019 Adhesive capsulitis of left shoulder 04/22/2019 Anxiety Benign prostatic hyperplasia (BPH) with straining on urination 10/21/2020 Cervical spinal stenosis 10/07/2017 Added automatically from request for surgery [id number] Cervicalgia 07/03/2017 Chronic right shoulder pain 04/01/2017 [...] 10/07/2017 Added automatically from request for surgery [id number] Other insomnia 04/01/2017 Postlaminectomy syndrome 12/30/2017 Added automatically from request for surgery [id number] Range of motion deficit 07/03/2017 Right leg pain 11/05/2019 Right upper limb pain 07/03/2017 Sciatic pain, right Spondylosis 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 12/30/2017 Added automatically from request for surgery [id number] Steroid-induced hyperglycemia 02/12/2019 Type 2 diabetes mellitus with diabetic nephropathy, without long-term current use of insulin 03/29/2017 diet controlled Vitamin D deficiency 11/08/2020 Past Social History: Past Surgical History: Procedure Laterality Date KNEE ARTHROSCOPY Left MEDIAL BRANCH BLOCK 10/24/2017 MEDIAL BRANCH BLOCK (SHX) Right 10/24/2017 Surgeon: Imtiaz Vázquez MD; Location: [facility] Location OTHER neck surgery RADIOFREQUENCY THERMOCOAGULATION 11/28/2017 RADIOFREQUENCY THERMOCOAGULATION Right 11/28/2017 Surgeon: Imtiaz Vázquez MD; Location: [facility] Location RADIOFREQUENCY THERMOCOAGULATION Left 02/06/2018 Surgeon: Imtiaz Vázquez MD; Location: [facility] Location Past Family History: Family History Problem Relation Age of Onset [place] (myocardial infarction) Father age 30s High cholesterol Father Liver failure Father ETOH cirrhosis [place] (myocardial infarction) Brother age 69 Cancer Sister unknown type High cholesterol Mother Current Facility-Administered Medications: bumetanide (BUMEX) tablet 0.5 mg, 0.5 mg, Oral, QAM+PM, Radha Vu, AGAPAVELP acetaZOLAMIDE (DIAMOX) tablet 250 mg, 250 mg, [...] fluticasone propionate 50 mcg/actuation nasal spray 1 [place], 1 [place], Nasal, DAILY, Jaime Thompson MD, 1 [place] at 10/22/22 0849 glucagon (GLUCAGEN DIAGNOSTIC KIT) [...] ordering referrals and/or communicating with other health point of care specialist (when not separately reported), documenting clinical information in the electronic or other health record, and care coordination (not separately reported).- hemodynamically stable- increase bumex to 0.5 mg BID and monitor response- continue current and rest of medications as per primary team- will sign off today. Please contact us if any questionsJOSE Barrington العراقي MD, [facility], [facility]USssistant ProfessorCardiology, Advanced Heart Failure, LVAD & Transplant ServiceDate of service: [id number] [id number]-Medgqnhj, Jose C1.2.840.397610.1.13.104.2.7.2.28101 5Yvzawqteyk-AiemjidePdiaSHZ7024-35-2 2T15:47:59Consult noteTXT1.2.840.606405.1.13.104.2.7.2 .323366|[id number] for patient awdl91623-3Wfcpgtw noteLNNP-ACUTE CARE MIDLEVEL PROVIDERNP-ACUTE CARE MIDLEVEL PROVIDER[address] Mp[id number] NBXSHXENHYSDPPRDCWIHWR3249-36-80C57: 47:591.2.840.757188.1.72.3.15|1.2.84 0.817206.1.13.104.2.7.2.727879_18791 67904 2022-10-19 2132-54-10B90:39:13Formatting of [facility] 09:39:13 this note is different from the original.PULMONARY CC MEDICINE CLS ADMIT H&PPCP: Liborio HallDate of Service: 10/19/2022HIEF COMPLAINT: SOBRespiratory failureHISTORY OF PRESENT HTIJLHV31 year old male brought to the [facility] ED by EMS for evaluation of SOB. Denies any cough. No chest pain. SOB began this morning. Pt was recently admitted to [facility] 10/05/2022 for management of Pneumonia and just [...] 01/31/2020 Acute respiratory failure with hypoxia 11/07/2019 Vapid-ka-ifunhti kidney injury 11/05/2019 Adhesive capsulitis of left shoulder 04/22/2019 Anxiety Benign prostatic hyperplasia (BPH) with straining on urination 10/21/2020 Cervical spinal stenosis 10/07/2017 Added automatically from request for surgery [id number] Cervicalgia 07/03/2017 Chronic right shoulder pain 04/01/2017 [...] 10/07/2017 Added automatically from request for surgery [id number] Other insomnia 04/01/2017 Postlaminectomy syndrome 12/30/2017 Added automatically from request for surgery [id number] Range of motion deficit 07/03/2017 Right leg pain 11/05/2019 Right upper limb pain 07/03/2017 Sciatic pain, right Spondylosis 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 12/30/2017 Added automatically from request for surgery [id number] Steroid-induced hyperglycemia 02/12/2019 Type 2 diabetes mellitus with diabetic nephropathy, without long-term current use of insulin 03/29/2017 diet controlled Vitamin D deficiency 11/08/2020 Past Surgical History: Procedure Laterality Date KNEE ARTHROSCOPY Left MEDIAL BRANCH BLOCK 10/24/2017 MEDIAL BRANCH BLOCK (SHX) Right 10/24/2017 Surgeon: Imtiaz Vázquez MD; Location: [facility] Location OTHER neck surgery RADIOFREQUENCY THERMOCOAGULATION 11/28/2017 RADIOFREQUENCY THERMOCOAGULATION Right 11/28/2017 Surgeon: Imtiaz Vázquez MD; Location: [facility] Location RADIOFREQUENCY THERMOCOAGULATION Left 02/06/2018 Surgeon: Imtiaz Vázquez MD; Location: [facility] Location Family History Problem Relation Age of Onset [place] (my[place] infarction) Father age 30s High cholesterol Father Liver failure Father ETOH cirrhosis [place] (myocardial infarction) Brother age 69 Cancer Sister [...] Female Social History Narrative Planning to leave [place] - unable to stay in [place] due to [place] living [place]oved to [place] (Mar 2020); reports move being good - moving to apt (glad no maintenance/up keep on apt problems). 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 Social Determinants of Health Financial Resource Strain: [...] 0.108 (H) <=0.034 ng/mL COMP. METABOLIC PANEL ([id number]) Collection Time: 10/19/22 4:08 AM Result Value [...] with air trappingDemand ischemia vs NSTEMIAKI on EDJmfiedhtxszySFP92 defAnemia of inflammation and macrocytosis PlanAdmit to ICUSupplemental O2Vent supportSedation protocolCT chestIV lasixFoleyI/OsWts IV antbx empiricABGINRInsulin SSGlycemic controlAA nebsINH pulmicortTrend fikovnvyFtomJujJGGOMWI72 injectionGI and DVT ppxReview home medsLabs and [...] and treating other patients and teaching time. 02895-9Owomoyy pcfpLN3463-67-85X55:24:55Consult noteTXT1.2.840.467654.1.13.104.2.7.2 .538892|[id number] for patient dxhs22761-4Gioayjw noteLNUT88 [address] StreetLnodCxatrwabmLvrblfkinXLHI0812393460 MSAXCTOFPQPQIMGIZIOOFR2049-50-68C86: 24:551.2.840.266822.1.72.3.15|1.2.84 0.835498.1.13.104.2.7.2.727879_18777 68080 2022-10-08 8055-72-18D95:20:54Associated Pauline Henry PT [facility] 11:20:54 Order(s): CONSULT ADULT PHYSICAL THERAPY Patient [...] 01/31/2020 Acute respiratory failure with hypoxia 11/07/2019 Vxoxv-yh-debmlrz kidney injury 11/05/2019 Adhesive capsulitis of left shoulder 04/22/2019 Anxiety Benign prostatic hyperplasia (BPH) with straining on urination 10/21/2020 Cervical spinal stenosis 10/07/2017 Added automatically from request for surgery [id number] Cervicalgia 07/03/2017 Chronic right shoulder pain 04/01/2017 [...] 10/07/2017 Added automatically from request for surgery [id number] Other insomnia 04/01/2017 Postlaminectomy syndrome 12/30/2017 Added automatically from request for surgery [id number] Range of motion deficit 07/03/2017 Right leg pain 11/05/2019 Right upper limb pain 07/03/2017 Sciatic pain, right Spondylosis 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 12/30/2017 Added automatically from request for surgery [id number] Steroid-induced hyperglycemia 02/12/2019 Type 2 diabetes mellitus with diabetic nephropathy, without long-term current use of insulin 03/29/2017 diet controlled Vitamin D deficiency 11/08/2020 PSH: Past Surgical History: Procedure Laterality Date KNEE ARTHROSCOPY Left MEDIAL BRANCH BLOCK 10/24/2017 MEDIAL BRANCH BLOCK (SHX) Right 10/24/2017 Surgeon: Imtiaz Vázquez MD; Location: [facility] Location OTHER neck surgery RADIOFREQUENCY THERMOCOAGULATION 11/28/2017 RADIOFREQUENCY THERMOCOAGULATION Right 11/28/2017 Surgeon: Imtiaz Vázquez MD; Location: [facility] Location RADIOFREQUENCY THERMOCOAGULATION Left 02/06/2018 Surgeon: Imtiaz Vázquez MD; Location: [facility] Prior Living Situation: lives alone on a [...] denies pain before and after sessionCOMMUNICATIONPrimary Language: Scottish Able to Verbalize needs: Yes Vision:good; no [...] 10 minTotal Treatment Time in Minutes: 15 Kim Henry PTTX PT Fftrngk2385797LUEB [facility] ADCRehabilitation Services [phone] (phone) (fax) 42311-6Phzaomo zneuFT0349-87-26U09:36:15Consult noteTXT1.2.840.302787.1.13.104.2.7.2 .525645|[id number] for patient vieo49964-6Zaivadt [id number] Johanson PTUT66 Lars[address] [id number] QVVIQRWLQQSQVDABAUJRWI1746-06-59L04: 36:151.2.840.604667.1.72.3.15|1.2.84 0.728481.1.13.104.2.7.2.727879_18681 61367 2022-10-06 4394-02-78R14:37:50Associated [facility] 12:37:50 Order(s): CONSULT NEPHROLOGY Consultation requested [...] 01/31/2020 Acute respiratory failure with hypoxia 11/07/2019 Hdblz-nc-cmpvvig kidney injury 11/05/2019 Adhesive capsulitis of left shoulder 04/22/2019 Anxiety Benign prostatic hyperplasia (BPH) with straining on urination 10/21/2020 Cervical spinal stenosis 10/07/2017 Added automatically from request for surgery [id number] Cervicalgia 07/03/2017 Chronic right shoulder pain 04/01/2017 [...] 10/07/2017 Added automatically from request for surgery [id number] Other insomnia 04/01/2017 Postlaminectomy syndrome 12/30/2017 Added automatically from request for surgery [id number] Range of motion deficit 07/03/2017 Right leg pain 11/05/2019 Right upper limb pain 07/03/2017 Sciatic pain, right Spondylosis 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 12/30/2017 Added automatically from request for surgery [id number] Steroid-induced hyperglycemia 02/12/2019 Type 2 diabetes mellitus with diabetic nephropathy, without long-term current use of insulin 03/29/2017 diet controlled Vitamin D deficiency 11/08/2020 Past Surgical History: Procedure Laterality Date KNEE ARTHROSCOPY Left MEDIAL BRANCH BLOCK 10/24/2017 MEDIAL BRANCH BLOCK (SHX) Right 10/24/2017 Surgeon: Imtiaz Vázquez MD; Location: [facility] OTHER neck surgery RADIOFREQUENCY THERMOCOAGULATION 11/28/2017 RADIOFREQUENCY THERMOCOAGULATION Right 11/28/2017 Surgeon: Imtiaz Vázquez MD; Location: [facility] Location RADIOFREQUENCY THERMOCOAGULATION Left 02/06/2018 Surgeon: Imtiaz Vázquez MD; Location: [facility] Location Family History Problem Relation Age of Onset [place] (my[place] infarction) Father age 30s High cholesterol Father Liver failure Father ETOH cirrhosis [place] (myocardial infarction) Brother age 69 Cancer Sister [...] IV Piggyback Q24H ABX Stopped at 10/05/22 215 baclofen (LIORESAL) tablet 10 mg 10 mg [...] GFR < 30 ml/minKamran Zayas MD, FASN 07766-7Hisazwj gakbDH2420-50-27N66:50:38Consult noteTXT1.2.840.470171.1.13.104.2.7.2 .589325|[id number] for patient bfwk08933-0Rndzesn noteLNUT10 [address] StreetVid[id number] QZBZKJBQZPRYPVDRSOOTRD0236-10-65G23: 50:381.2.840.766350.1.72.3.15|1.2.84 0.643976.1.13.104.2.7.2.727879_18674 [id number] 2022-10-06 7329-34-46T81:19:05Associated [facility] 10:19:05 Order(s): CONSULT CARDIOLOGY [facility] Cardiology Consult NotePatient: Ricki McclainDate of : 1950MRN: [id number] of service: 10/06/2022 Primary Care Physician: Liborio [...] acute COPD exacerbation. Patient was discharged from [facility] to [facility] rehab.Discharged from the rehab 1 week ago. [...] 01/31/2020 Acute respiratory failure with hypoxia 11/07/2019 Iutfs-zf-ltjvwib kidney injury 11/05/2019 Adhesive capsulitis of left shoulder 04/22/2019 Anxiety Benign prostatic hyperplasia (BPH) with straining on urination 10/21/2020 Cervical spinal stenosis 10/07/2017 Added automatically from request for surgery [id number] Cervicalgia 07/03/2017 Chronic right shoulder pain 04/01/2017 [...] 10/07/2017 Added automatically from request for surgery [id number] Other insomnia 04/01/2017 Postlaminectomy syndrome 12/30/2017 Added automatically from request for surgery [id number] Range of motion deficit 07/03/2017 Right leg pain 11/05/2019 Right upper limb pain 07/03/2017 Sciatic pain, right Spondylosis 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 12/30/2017 Added automatically from request for surgery [id number] Steroid-induced hyperglycemia 02/12/2019 Type 2 diabetes mellitus [...] Left 02/06/2018 Surgeon: Imtiaz Vázquez MD; Location: [facility] Location Family History Problem Relation Age of Onset [place] (my[place] infarction) Father age 30s High cholesterol Father Liver failure Father ETOH cirrhosis [place] (myocardial infarction) Brother age 69 Cancer Sister [...] Female Social History Narrative Planning to leave [place] - unable to stay in [place] due to cost of living [place]. Shakeel Dumont MOVERS Moved to [place] (Mar 2020); reports move being good - moving to [facility] (glad no maintenance/up keep on apt problems). 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 Social Determinants of Health Financial Resource Strain: [...] (TYLENOL) tablet 650 mg, 650 mg, Oral, Q6HPAbN, Fredo Trinidad, albuterol (PROVENTIL) 2.5 mg /3 mL (0.083 %) nebulizer solution 2.5 mg, 2.5 mg, Inhalation, Q6HPRN, Faina Zelaya MD, 2.5 mg at 10/06/22 0711 azithromycin (ZITHROMAX) 500 mg in NaCl 0.9% (NS) 250 mL VIAL-MATE IV piggyback, 500 mg, IV Piggyback, Q24H ABX, Fredo Trinidad DO, Stopped at 10/05/229 baclofen (LIORESAL) tablet 10 mg, 10 mg, Oral, TID, Faina Zelaya MD, 10 mg at 10/06/22 0929 benzonatate (TESSALON PERLES) capsule 100 mg, 100 mg, Oral, Q8HPRN, Faina Zelaya MD budesonide (PULMICORT RESPULE) nebulizer solution 0.5 mg, 0.5 mg, Inhalation, BID, Faina Zelaya MD, 0.5 mg at 10/06/22 0711 cefTRIAXone (ROCEPHIN) 1,000 mg in NaCl 0.9% (NS) 100 mL MINI-BAG, 1,000 mg, IV Piggyback, Q24H ABX, Fredo Trinidad DO cloNIDine (CATAPRES) tablet 0.2 mg, 0.2 mg, Oral, TIDPRN, Faina Zelaya MD ergocalciferol (vitamin d2) (CALCIFEROL) capsule 50,000 Units, 50,000 Units, Oral, QWEEKLY, Faina Zelaya MD furosemide (LASIX) injection 40 mg, 40 mg, IV Push, Q12H, Fredo Trinidad DO, 40 mg at 10/06/22 0930 glipiZIDE XL (GLUCOTROL XL) tablet 2.5 mg, 2.5 mg, Oral, BID, Faina Zelaya MD, 2.5 mg at 10/06/22 0930 heparin (porcine) injection 5,000 Units, 5,000 Units, Subcutaneous, Q8H, Fredo Trinidad DO, 5,000 Units at 10/06/22 0620 HYDROcodone-acetaminophen (NORCO) 10-325 mg tablet 1 tablet, 1 tablet, Oral, Q6HPRN, Faina Zelaya MD, 1 tablet at 10/06/22 0213 hydrOXYzine (ATARAX) tablet 25 mg, 25 mg, Oral, Q8H, Fania Zelaya MD, 25 mg at 10/06/22 0620 ipratropium (ATROVENT) 0.02 % nebulizer solution 0.5 mg, 0.5 mg, Inhalation, Q4HPRN, Faina Zelaya MD, 0.5 mg at 10/06/22 0516 levothyroxine (SYNTHROID) tablet 150 mcg, 150 mcg, Oral, QAM-0600, Faina Zelaya MD, 150 mcg at 10/06/22 0620 magnesium oxide (MAG-OX 400) tablet 400 mg, 400 mg, Oral, DAILY, Faina Zelaya MD, 400 mg at 10/06/22 0929 melatonin (MELATIN) tablet 6 mg, 6 mg, Oral, Q, Faina Zelaya MD, 6 mg at 10/05/22 2306 mirtazapine (REMERON) tablet 7.5 mg, 7.5 mg, Oral, Q, Faina Zelaya MD NIFEdipine ER tablet 30 mg, 30 mg, Oral, JERAMYNathalie Mohammad A., MD, 30 mg at 10/06/22 0930 pravastatin (PRAVACHOL) tablet 40 mg, 40 mg, Oral, Q, Faina Zelaya MD tamsulosin (FLOMAX) capsule 0.4 mg, 0.4 mg, Oral, DAILY, Faina Zelaya MD, 0.4 mg at 10/06/22 0929 traZODone (DESYREL) tablet 50 mg, 50 mg, Oral, Q, Faina Zelaya MDREVIEW OF SYSTEMS:Comprehensive 10-system review was conducted [...] A1C Results (UTMB/LC, POCT, QUEST) Recent Labs 1 10/01/2310 HGBA1C 5.0 5.3 -- AGAXBHT9G -- -- 6.1* CKD 3/4: Rx/work-up as per primary team.My diagnostic impression and treatment plans were discussed at length with the patient. Thank you for allowing us to participate in the care of Ricki Mcclain.If you have any questions or concerns please feel free to call our office at [phone]. I would be happy to be of further assistance for Ricki Mcclain wellbeing. Voice recognition software has been used to create portions of this document. An attempt to proofread has been made to minimize errors. Please do not hesitate to call with any questions. Angel Porter MD Maintenance Service Dispatcher, Division of CardiologyUnSt. [facility] [address]-2Kafyjbr eokvLM9556-14-19Z48:45:03Consult noteTXT1.2.840.614698.1.13.104.2.7.2 .925203|[id number] for patient mkrq27918-0Ydoibgu noteLNUT[address] CmfnUrwdxfkctXhcklbcelAXER7228876395 HBGTLFVTFURQIEMVGRHNVO7752-70-42L16: 45:031.2.840.175626.1.72.3.15|1.2.84 0.447234.1.13.104.2.7.2.727879_18674 10196 2022-09-17 8931-83-25T36:23:18Associated [facility] 19:23:18 Order(s): CONSULT NEPHROLOGY Nephrology ConsultAdmit Date: 3PCP: Liborio HallReferrsusan Physician: Dr. 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 - Both Eyes 01/31/2020 Acute respiratory failure with hypoxia 11/07/2019 Zlcnm-cn-peeqata kidney injury 11/05/2019 Adhesive capsulitis of left shoulder 04/22/2019 Anxiety Benign prostatic hyperplasia (BPH) with straining on urination 10/21/2020 Cervical spinal stenosis 10/07/2017 Added automatically from request for surgery [id number] Cervicalgia 07/03/2017 Chronic right shoulder pain 04/01/2017 [...] 10/07/2017 Added automatically from request for surgery [id number] Other insomnia 04/01/2017 Postlaminectomy syndrome 12/30/2017 Added automatically from request for surgery [id number] Range of motion deficit 07/03/2017 Right leg pain 11/05/2019 Right upper limb pain 07/03/2017 Sciatic pain, right Spondylosis 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 12/30/2017 Added automatically from request for surgery [id number] Steroid-induced hyperglycemia 02/12/2019 Type 2 diabetes mellitus [...] Location: [facility] ALLERGIESNo Active AllergiesMEDICATIONS reviewed in the chart.Current [...] IV Piggyback Q24H ABX 200 mL/hr at 09/17/22 1843 1,000 mg at 09/17/22 184 dextrose 50 % in water (D50W) injection 25 mL 25 mL Slow IV Push PRN glucagon (GLUCAGEN DIAGNOSTIC KIT) injection 1 mg 1 mg Intramuscular PRN heparin (porcine) injection 5,000 Units 5,000 Units Subcutaneous Q8H ipratropium-albuteroL (DUONEB) 0.5 mg-3 mg(2.5 mg base)/3 mL nebulizer solution 3 mL 3 mL Inhalation Q4H predniSONE (DELTASONE) tablet 40 mg 40 mg Oral DAILY 40 mg at 09/17/22 184 Sliding Scale Insulin - Lispro (HumaLOG) Subcutaneous TID MEALS+HS SOCIAL HISTORYSocial History Socioeconomic History Marital status: Single Spouse name: Anniemercedez Hernandez Number of children: 1 Years of [...] Female Social History Narrative Planning to leave [place] - unable to stay in [place] due to cost of living [place]. Shakeel Dumont MOVERS Moved to [place] (Mar 2020); reports move being good - moving to [facility] (glad no maintenance/up keep on apt [...] HistoryFamily History Problem Relation Age of Onset [place] ([place] infarction) Father age 30s High cholesterol Father Liver failure Father ETOH cirrhosis [place] (myocardial infarction) Brother age 69 Cancer Sister unknown type High cholesterol Mother 73574-0Yowwjrd llrwVL5769-00-13B95:32:18Consult noteTXT1.2.840.592897.1.13.104.2.7.2 .518917|[id number] for patient [address] VfquKjgsyamkgEftyggpagQOSO0760404760 FNTTHYCICBAGXPXMXAZSUN4415-43-44O76: 32:181.2.840.132161.1.72.3.15|1.2.84 0.086784.1.13.104.2.7.2.727879_18520 42865 History and Physical Notes Date/Time Note Provider Source 2022-10-05 1491-18-30U02:44:11Formatting of IM-INTERNAL [facility] 21:44:11 this note is different from the MEDICINE STAFF original.[facility] Hospitalist Admission H&P Date of Service: 3CHIEF [...] conditioner was not working. He is told apartMogotest complex that his air conditioner has not [...] 01/31/2020 Acute respiratory failure with hypoxia 11/07/2019 Ilbie-wi-spetqqw kidney injury 11/05/2019 Adhesive capsulitis of left shoulder 04/22/2019 Anxiety Benign prostatic hyperplasia (BPH) with straining on urination 10/21/2020 Cervical spinal stenosis 10/07/2017 Added automatically from request for surgery [id number] Cervicalgia 07/03/2017 Chronic right shoulder pain 04/01/2017 [...] 10/07/2017 Added automatically from request for surgery [id number] Other insomnia 04/01/2017 Postlaminectomy syndrome 12/30/2017 Added automatically from request for surgery [id number] Range of motion deficit 07/03/2017 Right leg pain 11/05/2019 Right upper limb pain 07/03/2017 Sciatic pain, right Spondylosis 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 12/30/2017 Added automatically from request for surgery [id number] Steroid-induced hyperglycemia 02/12/2019 Type 2 diabetes mellitus with diabetic nephropathy, without long-term current use of insulin 03/29/2017 diet controlled Vitamin D deficiency 11/08/2020 PAST SURGICAL HISTORYPast Surgical History: Procedure Laterality Date KNEE ARTHROSCOPY Left MEDIAL BRANCH BLOCK 10/24/2017 MEDIAL BRANCH BLOCK (SHX) Right 10/24/2017 Surgeon: Imtiaz Vázquez MD; Location: [facility] Location OTHER neck surgery RADIOFREQUENCY THERMOCOAGULATION 11/28/2017 RADIOFREQUENCY THERMOCOAGULATION Right 11/28/2017 Surgeon: Imtiaz Vázquez MD; Location: [facility] RADIOFREQUENCY THERMOCOAGULATION Left 02/06/2018 Surgeon: Imtiaz Vázquez MD; Location: [facility] ALLERGIESNo Known AllergiesMEDICATIONSCurrent home medication list reviewed:Current [...] HISTORYFamily History Problem Relation Age of Onset [place] (my[place] infarction) Father age 30s High cholesterol Father Liver failure Father ETOH cirrhosis [place] (myocardial infarction) Brother age 69 Cancer Sister [...] Female Social History Narrative Planning to [place] - unable to stay in [place] due to cost of living [place]. Shakeel Dumont MOVERS Moved to [place] (Mar 2020); reports move being good - moving to [facility] (glad no maintenance/up keep on apt problems). 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 Questionable pneumonic process-Continue with IV antibiotics-Awaiting sputum and blood culture-Repeat chest x-ray-may repeat CT scan of the chest if pneumonia is not improved to evaluate for postobstructive fucmiozda-drdbxvitnjxsb-Dfomlgft with nebs as needed-O2 per protocol-Continue with gentle hydration-Repeat labs including CBC, BNP, and renal function in a.m.3. History of congestive heart failure;HFpEF-Echocardiogram reviewed-Cardiology consultation-Aggressive diuresis-Strict I's and O's-Repeat CXR-Daily weights-Education regarding diet and treatment of congestive heart failure4. CKD IV-Monitor renal function-Strict I's and O's-Repeat CXR-May get renal consult5. Rvxq-czufwkaqvyq-yjnwhzihflqgsd2. Hypothyroidism-continue with SynthroidDVT prophylaxis: enoxaparinStress ulcer prophylaxis: [...] more given high risk of morbidity and mortality.[facility] [place] [address]-3Uxlrzln and physical gavvZM7570-47-54G19:45:32History and physical noteTXT1.2.840.473417.1.13.104.2.7.2 .119476|[id number] for patient ubwk81451-4Chihaqs and physical noteLNIM-INTERNAL MEDICINE STAFFIM-INTERNAL MEDICINE STAFF[address] Ud[id number] HPIYCEFJAEZRAVXOPKXUHM8892-41-70A07: 45:321.2.840.615692.1.72.3.15|1.2.84 0.243504.1.13.104.2.7.2.727879_18671 20036 2022-09-17 0998-41-70G85:15:10Formatting of [facility] 22:15:10 this note is different from the original.[facility] Hospitalist Admission H&P Date of Service: 09/17/2022HIEF COMPLAINT: Altered mental status; lethargy; hypercapnic respiratory [...] 01/31/2020 Acute respiratory failure with hypoxia 11/07/2019 Govhz-ya-qjoxppx kidney injury 11/05/2019 Adhesive capsulitis of left shoulder 04/22/2019 Anxiety Benign prostatic hyperplasia (BPH) with straining on urination 10/21/2020 Cervical spinal stenosis 10/07/2017 Added automatically from request for surgery [id number] Cervicalgia 07/03/2017 Chronic right shoulder pain 04/01/2017 [...] 10/07/2017 Added automatically from request for surgery [id number] Other insomnia 04/01/2017 Postlaminectomy syndrome 12/30/2017 Added automatically from request for surgery [id number] Range of motion deficit 07/03/2017 Right leg pain 11/05/2019 Right upper limb pain 07/03/2017 Sciatic pain, right Spondylosis 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 12/30/2017 Added automatically from request for surgery [id number] Steroid-induced hyperglycemia 02/12/2019 Type 2 diabetes mellitus with diabetic nephropathy, without long-term current use of insulin 03/29/2017 diet controlled Vitamin D deficiency 11/08/2020 PAST SURGICAL HISTORYPast Surgical History: Procedure Laterality Date KNEE ARTHROSCOPY Left MEDIAL BRANCH BLOCK 10/24/2017 MEDIAL BRANCH BLOCK (SHX) Right 10/24/2017 Surgeon: Imtiaz Vázquez MD; Location: [facility] Location OTHER neck surgery RADIOFREQUENCY THERMOCOAGULATION 11/28/2017 RADIOFREQUENCY THERMOCOAGULATION Right 11/28/2017 Surgeon: Imtiaz Vázquez MD; Location: [facility] RADIOFREQUENCY THERMOCOAGULATION Left 02/06/2018 Surgeon: Imtiaz Vázquez MD; Location: [facility] ALLERGIESNo Active AllergiesMEDICATIONSCurrent home medication list reviewed:Current [...] HISTORYFamily History Problem Relation Age of Onset [place] (my[place] infarction) Father age 30s High cholesterol Father Liver failure Father ETOH cirrhosis [place] (myocardial infarction) Brother age 69 Cancer Sister [...] Female Social History Narrative Planning to leave [place] - unable to stay [place] due to cost of living [place]. Shakeel Dumont MOVERS Moved to [place] (Mar 2020); reports move being good - moving to [facility] (glad no maintenance/up keep on apt [...] Exercise per Session: Not asked REVIEW OF GSYQCMX09 systems negative except per HPIPHYSICAL EXAMINATIONBP (!) [...] and generalized weakness8. Macrocytic anemia9. Compensatory metabolic ecgimqujj66. Elevated mnnreurh77. History of tuberculosisPLAN:1. Continue with BiPAP support; [...] more given high risk of morbidity and mortality.[place] [facility] [facility] [place] [address]-5Xokisps and physical wfeyNT8787-71-92Q53:01:46History and physical noteTXT1.2.840.481801.1.13.104.2.7.2 .709913|[id number] for patient [address]G[id number] TKJDAHCUAUMKVYZAVWEZWR4290-12-67J38: 01:461.2.840.935030.1.72.3.15|1.2.84 0.835005.1.13.104.2.7.2.727879_18520 77977 Notes Date/Time Note Provider Source 2022-11-12 5667-44-51L70:30:09Formatting of this [facility] 16:30:09 note might be different from the EYAL original.Sent portable concentrator and duo nebulizer via parachute to [facility] scanned in orders to patient ADC chart 02693-7Xijjzbiuq encounter AvdfGY7271-58-84R64:31:28Telephone encounter NoteTXT1.2.840.548901.1.13.104.2.7.2.72 7879|[id number] for patient fhoa99155-3EuuyBZ965698294Yidvopm Castillo [address] Vvfo[id number] CDCIGJFRMCNXXIETTUO8053-83-61W70:31:281 .2.840.338219.1.72.3.15|1.2.840.623724. 1.13.104.2.7.2.727879_[id number] 2022-10-24 8811-67-08S60:23:30Formatting of this Jared Robertson [facility] 09:23:30 note is different from the RN original.TRANSITIONAL CARE MANAGEMENT ASSESSMENT10/24/2022 Ricki McclainGcrmun830913RVzgbn Hefner is a 72 year old /White male was admitted on 10/19/[address] [facility] [address]. He was discharged on 10/23/22 with discharge disposition of HR- Routine Discharge.Admitting Physician: Amber Leblanc Diagnosis: Acute respiratory failure with hypoxia and hypercapniaAcute hypoxic and hypercapnic respiratory failure due to volume overload/CHF - SBT pt self extubated during trialAcute on chronic HFpEFVolume overloadCOPD - severe obstructive ventilatory defect with air trappingDemand ischemia vs NSTEMIAKI on ZFKcdmmpwjsinhJXV58 defAnemia of inflammation and macrocytosis No linked episodesTCM Dze-jjrb-kj-face outreach documentation:Discharge AssessmentChart Assessed: 10/24/22Chart Reviewed - Post Discharge Call Deferred due to Change in Discharge Status.: Discharged to Inpatient Rehab ([address] [place], [place] [address] (P) [phone] (F) [phone])TCM Outreach Completed: 10/24/22 Future Appointments: Future Appointments Provider Department Dept Phone 10/30/2022 1:40 PM Bls, Heart Failure Nurse Practition[facility] [phone] 10/31/2022 2:00 PM Liborio Hall MD [facility], [place] [phone] 11/06/2022 1:00 PM Pauline Henry, VERÓNICA [facility]- [place] [phone] 11/09/2022 10:30 AM Ya Quintana DO [facility] [phone] 05519-5Gntznqrqv encounter XjqcIV2797-50-80V34:24:47Telephone encounter NoteTXT1.2.840.356220.1.13.104.2.7.2.72 7879|[id number] for patient [id number] A [facility] - [address] Lr[id number] VJEITZHTSEBLUHCJGCL6936-60-28O40:24:471 .2.840.629381.1.72.3.15|1.2.840.669245. 1.13.104.2.7.2.727879_[id number] 2022-10-23 7450-09-08I71:04:11Formatting of this Renee [facility] 17:04:11 note might be different from the RN original.Problem: Respiratory Function - ImpairedGoal: Able to cough effectively10/23/2022 1704 by Renee Salazar RNOutcome: Adequate for discharge10/23/2022 1158 by Renee Salazar RNOutcome: Progressing as expectedGoal: Adequate oxygenation10/23/2022 170 by Renee Salazar RNOutcome: Adequate for discharge10/23/2022 1158 by Renee Salazar RNOutcome: Progressing as expectedGoal: Adequate work of breathing10/23/2022 1704 by Renee Salazar RNOutcome: Adequate for discharge10/23/2022 1158 by Renee Salazar RNOutcome: Progressing as expectedGoal: Patent airway10/23/2022 1704 by Renee Salazar RNOutcome: Adequate for discharge10/23/2022 1158 by Renee Salazar RNOutcome: Progressing as expected Problem: Discharge PlanningGoal: Adequate for discharge10/23/2022 1704 by Renee Salazar RNOutcome: Adequate for discharge10/23/2022 1158 by Renee Salazar RNOutcome: Progressing as expectedGoal: Effective communication10/23/2022 170 by Renee Salazar RNOutcome: Adequate for discharge10/23/2022 1158 by Renee Salazar RNOutcome: Progressing as expected Problem: Fluid Volume - ImbalancedGoal: Absence of signs and symptoms of imbalanced fluid volume10/23/2022 1704 by Renee Salazar RNOutcome: Adequate for discharge10/23/2022 1158 by Renee Salazar RNOutcome: Progressing as expected Problem: Infection, Risk of or ActualGoal: Absence of infection10/23/20221703 by Renee Salazar RNOutcome: Adequate for discharge10/23/2022 1158 by Renee Salazar RNOutcome: Progressing as expected 64899-9Qpjv of care xyjaCU8524-89-07J23:04:20Plan of care noteTXT1.2.840.315542.1.13.104.2.7.2.72 7879|[id number] for patient [id number] A Holbert RNUTMBUT - [address]Nf[id number] VDUBPPMRYIELBSDMDYA2487-08-48Y41:04:201 .2.840.391828.1.72.3.15|1.2.840.092465. 1.13.104.2.7.2.727879_[id number] 2022-10-23 3830-31-14O04:58:36Formatting of this [facility] 11:58:36 note might be different from the original.Problem: Discharge PlanningGoal: Adequate for dischargeOutcome: Progressing as expectedGoal: Effective communicationOutcome: Progressing as expected Problem: Falls, Risk ofGoal: Absence of fallsOutcome: Progressing as expected 29509-6Jjjo of care ziirAB6082-14-08A37:58:40Plan of care noteTXT1.2.840.543222.1.13.104.2.7.2.72 7879|[id number] for patient aaug44062-1PophAESDCIXOWK[address] Qq[id number] BIGEVIOKBLEREZJHQMV2579-40-28U56:58:401 .2.840.281133.1.72.3.15|1.2.840.217145. 1.13.104.2.7.2.727879_[id number] 2022-10-23 6113-50-55X66:18:37Formatting of this [facility] 00:18:37 note might be different from the RN original.Problem: Respiratory Function - ImpairedGoal: Able to cough effectivelyOutcome: Progressing as expectedGoal: Adequate oxygenationOutcome: Progressing as expectedGoal: Adequate work of breathingOutcome: Progressing as expectedGoal: Patent airwayOutcome: Progressing as expected Problem: Falls, Risk ofGoal: Absence of fallsOutcome: Progressing as expected Problem: Fluid Volume - ImbalancedGoal: Absence of signs and symptoms of imbalanced fluid volumeOutcome: Progressing as expected Problem: Glucose Control - Initiated in Adult CCGoal: Glucose level within specified parametersOutcome: Progressing as expected Problem: Infection, Risk of or ActualGoal: Absence of infectionOutcome: Progressing as expected Problem: Mental Status - Impaired, Risk ofGoal: Mental status restored to baselineOutcome: Progressing as expectedGoal: Absence of physical injuryOutcome: Progressing as expected Problem: PainGoal: Control of pain at or below patient's documented comfort goalOutcome: Progressing as expectedGoal: Reduction in pain sensationOutcome: Progressing as expected Problem: Respiratory Function - ImpairedGoal: Able to cough effectivelyOutcome: Progressing as expectedGoal: Adequate oxygenationOutcome: Progressing as expectedGoal: Adequate work of breathingOutcome: Progressing as expectedGoal: Patent airwayOutcome: Progressing as expected Problem: Skin integrity Impaired (Risk or Actual)Goal: Wound healingOutcome: Progressing as expectedGoal: Prevention of new skin breakdownOutcome: Progressing as expected Problem: Tissue Perfusion - Altered, Risk ofGoal: Hemodynamically stableOutcome: Progressing as expected 04363-5Vbdz of care eqykCI5613-57-43S87:18:41Plan of care noteTXT1.2.840.871551.1.13.104.2.7.2.72 7879|[id number] for patient [id number] Santhosh [address] Dlwe[id number] HIBPVHIGAHVUQNVVOMN4603-63-64U75:18:411 .2.840.944275.1.72.3.15|1.2.840.816842. 1.13.104.2.7.2.727879_[id number] 2022-10-22 4996-45-53U59:50:28Formatting of this [facility] 18:50:28 note might be different from the original.Problem: Respiratory Function - ImpairedGoal: Able to cough effectivelyOutcome: Progressing as expectedGoal: Adequate oxygenationOutcome: Progressing as expectedGoal: Adequate work of breathingOutcome: Progressing as expectedGoal: Patent airwayOutcome: Progressing as expected Problem: Discharge PlanningGoal: Adequate for dischargeOutcome: Progressing as expectedGoal: Effective communicationOutcome: Progressing as expected Problem: Falls, Risk ofGoal: Absence of fallsOutcome: Progressing as expected 04847-4Wbsh of care hrbrDI3313-04-68Z87:50:35Plan of care noteTXT1.2.840.471739.1.13.104.2.7.2.72 7879|[id number] for patient pcsn53974-1IdyaIYXFFFCPNF20 [address] StreetJcasL[id number] GLWTULRKRXEUSEDYTOC7242-47-47A23:50:351 .2.840.446778.1.72.3.15|1.2.840.531618. 1.13.104.2.7.2.727879_[id number] 2022-10-22 0912-53-05W07:39:11Formatting of this [facility] 01:39:11 note might be different from the original.Problem: Respiratory Function - ImpairedGoal: Able to cough effectivelyOutcome: Progressing as expectedGoal: Adequate oxygenationOutcome: Progressing as expectedGoal: Adequate work of breathingOutcome: Progressing as expectedGoal: Patent airwayOutcome: Progressing as expected Problem: Discharge PlanningGoal: Adequate for dischargeOutcome: Progressing as expectedGoal: Effective communicationOutcome: Progressing as expected Problem: Falls, Risk ofGoal: Absence of fallsOutcome: Progressing as expected Problem: Fluid Volume - ImbalancedGoal: Absence of signs and symptoms of imbalanced fluid volumeOutcome: Progressing as expected Problem: Glucose Control - Initiated in Adult CCGoal: Glucose level within specified parametersOutcome: Progressing as expected Problem: Infection, Risk of or ActualGoal: Absence of infectionOutcome: Progressing as expected Problem: Mental Status - Impaired, Risk ofGoal: Mental status restored to baselineOutcome: Progressing as expectedGoal: Absence of physical injuryOutcome: Progressing as expected Problem: PainGoal: Control of pain at or below patient's documented comfort goalOutcome: Progressing as expectedGoal: Reduction in pain sensationOutcome: Progressing as expected Problem: Respiratory Function - ImpairedGoal: Able to cough effectivelyOutcome: Progressing as expectedGoal: Adequate oxygenationOutcome: Progressing as expectedGoal: Adequate work of breathingOutcome: Progressing as expectedGoal: Patent airwayOutcome: Progressing as expected Problem: Skin integrity Impaired (Risk or Actual)Goal: Wound healingOutcome: Progressing as expected Problem: Tissue Perfusion - Altered, Risk ofGoal: Hemodynamically stableOutcome: Progressing as expected 68383-8Qbar of care muaoLN5028-22-67E16:39:14Plan of care noteTXT1.2.840.639619.1.13.104.2.7.2.72 7879|[id number] for patient hqvn31332-6BtdxTJRKHSMBIO[id number] JSQUCAZGXPNQEBIHKMW3477-33-93E77:39:141 .2.840.695675.1.72.3.15|1.2.840.903640. 1.13.104.2.7.2.727879_[id number] 2022-10-21 5807-77-26B64:45:44Formatting of this Yue Jarrell [facility] 09:45:44 note might be different from the Andrea GUERRERO original.Problem: Respiratory Function - ImpairedGoal: Able to cough effectivelyOutcome: Progressing as expectedGoal: Adequate oxygenationOutcome: Progressing as expectedGoal: Adequate work of breathingOutcome: Progressing as expectedGoal: Patent airwayOutcome: Progressing as expected 07012-4Oywo of care wvcdTH5389-41-92W57:45:48Plan of care noteTXT1.2.840.835555.1.13.104.2.7.2.72 7879|[id number] for patient rivs17948-1TsyeFA114170939Esyxljtz N Bernardo RN[id number] SJSVBUKRQTHAKBJKIZV7495-74-17K15:45:481 .2.840.803385.1.72.3.15|1.2.840.555256. 1.13.104.2.7.2.727879_[id number] 2022-10-21 5516-64-21U29:00:00Formatting of this [facility] 08:00:00 note might be different from the original.Received patient in bed aox4. No distress noted, no family at bedside. POC discussed with patient. Call light in reach. Bed in low position. 28445-1Oebav BehkSF2614-71-75Z33:45:16Nurse NoteTXT1.2.840.092606.1.13.104.2.7.2.72 7879|[id number] for patient kdgx33017-1NokoQVVLIGFUQL[id number] YKMACYHWOKUVAUGYTSH7379-28-76C70:45:161 .2.840.845672.1.72.3.15|1.2.840.164044. 1.13.104.2.7.2.727879_[id number] 2022-10-21 2420-74-55E68:49:33Formatting of this Paul Carbone RN [facility] 05:49:33 note might be different from the original.0548: Attempt to made call son Mr.James Quiles [facility] left voice mail. 75351-9Dmgvu TpfwUO9140-83-83R15:51:17Nurse NoteTXT1.2.840.035716.1.13.104.2.7.2.72 7879|[id number] for patient uroa43018-5TeogCK648037699Scn Aliyas RN[id number] DNATBJAIQHVOEMZJXSG4425-70-59Q73:51:171 .2.840.216394.1.72.3.15|1.2.840.830495. 1.13.104.2.7.2.727879_[id number] 2022-10-21 2566-70-99O35:04:49Formatting of this [facility] 03:04:49 note might be different from the original.Problem: Respiratory Function - ImpairedGoal: Able to cough effectivelyOutcome: Progressing as expectedGoal: Adequate oxygenationOutcome: Progressing as expectedGoal: Adequate work of breathingOutcome: Progressing as expectedGoal: Patent airwayOutcome: Progressing as expected Problem: Discharge PlanningGoal: Adequate for dischargeOutcome: Progressing as expectedGoal: Effective communicationOutcome: Progressing as expected Problem: Falls, Risk ofGoal: Absence of fallsOutcome: Progressing as expected Problem: Fluid Volume - ImbalancedGoal: Absence of signs and symptoms of imbalanced fluid volumeOutcome: Progressing as expected Problem: Glucose Control - Initiated in Adult CCGoal: Glucose level within specified parametersOutcome: Progressing as expected Problem: Infection, Risk of or ActualGoal: Absence of infectionOutcome: Progressing as expected Problem: Mental Status - Impaired, Risk ofGoal: Mental status restored to baselineOutcome: Progressing as expectedGoal: Absence of physical injuryOutcome: Progressing as expected Problem: PainGoal: Control of pain at or below patient's documented comfort goalOutcome: Progressing as expectedGoal: Reduction in pain sensationOutcome: Progressing as expected Problem: Respiratory Function - ImpairedGoal: Able to cough effectivelyOutcome: Progressing as expectedGoal: Adequate oxygenationOutcome: Progressing as expectedGoal: Adequate work of breathingOutcome: Progressing as expectedGoal: Patent airwayOutcome: Progressing as expected Problem: Skin integrity Impaired (Risk or Actual)Goal: Wound healingOutcome: Progressing as expectedGoal: Prevention of new skin breakdownOutcome: Progressing as expected Problem: Tissue Perfusion - Altered, Risk ofGoal: Hemodynamically stableOutcome: Progressing as expected 22330-5Effk of care rraeQN7799-53-79J61:05:07Plan of care noteTXT1.2.840.197743.1.13.104.2.7.2.72 7879|[id number] for patient nlvi52114-4BphjNBLJLHVXXX[id number] CUPLQEWCZUVEIDGEOAU6859-38-23M97:05:071 .2.840.790868.1.72.3.15|1.2.840.669785. 1.13.104.2.7.2.727879_[id number] 2022-10-20 9571-73-29M27:08:26Formatting of this [facility] 10:08:26 note is different from the RN original.Walked in to find patient extubated after being on CPAP mode on ventilator for an hour, patient restrained, off sedation for SBT, patient alert and oriented, denies pain at this time, placed on 2L NC, call light within reach, denies shortness of breath, MD notified. 10/20/22 1007 Vitals Pulse 63 Heart Rate (monitor) 65 Resp 18 MAP (mmHg) 108 SpO2 97 % Oxygen Therapy Oxygen mode (O2 device) Nasal cannula Oxygen flow (L/min) 2 L/min $ Oxygen charge (Supply $) Y FiO2 (%) 28 % Non-Invasive Ventilation CPAP (cmH2O) 5 cmH2O Mechanical Ventilation Vent mode Standby 49921-1Ezlji GszsGQ5914-97-84K73:11:25Nurse NoteTXT1.2.840.513183.1.13.104.2.7.2.72 7879|[id number] for patient kjch78173-6CchoXV785730467Mlrjywl A Lima RN[id number] BOFHFDJVZBUTMSNWHCK1877-12-27E24:11:251 .2.840.704084.1.72.3.15|1.2.840.634830. 1.13.104.2.7.2.727879_[id number] 2022-10-20 2970-31-92E46:00:00Formatting of this [facility] 10:00:00 note might be different from the original.Problem: Restraint UseGoal: Absence of restraint indicationsOutcome: ResolvedGoal: Absence of restraint-related injuryOutcome: Resolved 23388-2Fosk of care uukgWY7702-05-51E71:16:13Plan of care noteTXT1.2.840.180425.1.13.104.2.7.2.72 7879|[id number] for patient aoas66031-7DfmcYMVXHZPIZW[address]vdG[id number] RVZNNQEOXRFXBKOUNQT0138-53-60S59:16:131 .2.840.178030.1.72.3.15|1.2.840.378526. 1.13.104.2.7.2.727879_[id number] 2022-10-20 2353-97-73Z62:19:46Formatting of this [facility] 02:19:46 note might be different from the original.Problem: Respiratory Function - ImpairedGoal: Able to cough effectivelyOutcome: Progressing as expectedGoal: Adequate oxygenationOutcome: Progressing as expectedGoal: Adequate work of breathingOutcome: Progressing as expectedGoal: Patent airwayOutcome: Progressing as expected Problem: Discharge PlanningGoal: Adequate for dischargeOutcome: Progressing as expectedGoal: Effective communicationOutcome: Progressing as expected Problem: Falls, Risk ofGoal: Absence of fallsOutcome: Progressing as expected Problem: Fluid Volume - ImbalancedGoal: Absence of signs and symptoms of imbalanced fluid volumeOutcome: Progressing as expected Problem: Glucose Control - Initiated in Adult CCGoal: Glucose level within specified parametersOutcome: Progressing as expected Problem: Infection, Risk of or ActualGoal: Absence of infectionOutcome: Progressing as expected Problem: Mental Status - Impaired, Risk ofGoal: Mental status restored to baselineOutcome: Progressing as expectedGoal: Absence of physical injuryOutcome: Progressing as expected Problem: Respiratory Function - ImpairedGoal: Able to cough effectivelyOutcome: Progressing as expectedGoal: Adequate oxygenationOutcome: Progressing as expectedGoal: Adequate work of breathingOutcome: Progressing as expectedGoal: Patent airwayOutcome: Progressing as expected Problem: Restraint UseGoal: Absence of restraint indicationsOutcome: Progressing as expectedGoal: Absence of restraint-related injuryOutcome: Progressing as expected Problem: Skin integrity Impaired (Risk or Actual)Goal: Wound healingOutcome: Progressing as expectedGoal: Prevention of new skin breakdownOutcome: Progressing as expected Problem: Tissue Perfusion - Altered, Risk ofGoal: Hemodynamically stableOutcome: Progressing as expected 06814-6Gkiq of care cipzMV6742-37-61T86:20:06Plan of care noteTXT1.2.840.565152.1.13.104.2.7.2.72 7879|[id number] for patient enhs37876-8PfgyXJDHYSDFXQ20 [address] StreetLhkgKahyiqothPvvjwexsnTKZF7728899869BDP CDDNCNQLBYQCQDYHXAK9847-49-84H28:20:061 .2.840.876921.1.72.3.15|1.2.840.725837. 1.13.104.2.7.2.727879_[id number] 2022-10-19 0613-35-17L17:45:22Formatting of this [facility] 17:45:22 note might be different from the original.Problem: Respiratory Function - ImpairedGoal: Able to cough effectivelyOutcome: Progressing as expectedGoal: Adequate oxygenationOutcome: Progressing as expectedGoal: Adequate work of breathingOutcome: Progressing as expectedGoal: Patent airwayOutcome: Progressing as expected Problem: Discharge PlanningGoal: Adequate for dischargeOutcome: Progressing as expectedGoal: Effective communicationOutcome: Progressing as expected Problem: Falls, Risk ofGoal: Absence of fallsOutcome: Progressing as expected Problem: Fluid Volume - ImbalancedGoal: Absence of signs and symptoms of imbalanced fluid volumeOutcome: Progressing as expected Problem: Glucose Control - Initiated in Adult CCGoal: Glucose level within specified parametersOutcome: Progressing as expected Problem: Infection, Risk of or ActualGoal: Absence of infectionOutcome: Progressing as expected Problem: Mental Status - Impaired, Risk ofGoal: Mental status restored to baselineOutcome: Progressing as expectedGoal: Absence of physical injuryOutcome: Progressing as expected Problem: PainGoal: Control of pain at or below patient's documented comfort goalOutcome: Progressing as expectedGoal: Reduction in pain sensationOutcome: Progressing as expected Problem: Respiratory Function - ImpairedGoal: Able to cough effectivelyOutcome: Progressing as expectedGoal: Adequate oxygenationOutcome: Progressing as expectedGoal: Adequate work of breathingOutcome: Progressing as expectedGoal: Patent airwayOutcome: Progressing as expected Problem: Restraint UseGoal: Absence of restraint-related injuryOutcome: Progressing as expected Problem: Skin integrity Impaired (Risk or Actual)Goal: Wound healingOutcome: Progressing as expectedGoal: Prevention of new skin breakdownOutcome: Progressing as expected Problem: Tissue Perfusion - Altered, Risk ofGoal: Hemodynamically stableOutcome: Progressing as expected Problem: Restraint UseGoal: Absence of restraint indicationsOutcome: Not progressing as expected 57225-2Bozu of care fbdiPE5068-68-95O90:45:33Plan of care noteTXT1.2.840.502865.1.13.104.2.7.2.72 7879|[id number] for patient gmrv04211-9KqfuKEVUAPPIBF[address] Ybsf[id number] AXIMVYVBGDIZBRWMOBR9152-19-89L11:45:331 .2.840.256981.1.72.3.15|1.2.840.126651. 1.13.104.2.7.2.727879_[id number] 2022-10-19 4931-06-99K15:30:15Formatting of this [facility] 10:30:15 note is different from the original.Received patient from [facility]. Patient intubated, sedated, administered rocuronium per EMS. Vital signs stable, mechanically ventilated, breathing is even and unlabored, MD Leblanc notified of patient arrival and awaiting new orders. 10/19/22 0909 Vitals Temp 36.9 ?C (98.4 ?F) Temp source Axillary Pulse 63 Heart Rate (monitor) 63 Resp 14 BP (!) 143/95 MAP (mmHg) 112 SpO2 100 % Pain and Comfort Assessment type Routine Pain goal <3 Scale used CPOT Rating 0 CPOT (Critical-Care Pain Observation Tool) Facial Expression 0 Body Movements 0 Muscle Tension 0 Intubated (Ventilator Compliance) 0 CPOT Score 0 Oxygen Therapy FiO2 (%) 60 % Non-Invasive Ventilation CPAP (cmH2O) 5 cmH2O Mechanical Ventilation Vent mode PRVC A/C Resp rate (set) 20 Insp time (sec) 1 sec Vt Exp (mL) 452 mL PEEP/CPAP (cmH2O) 5 cmH20 PIP observed (cmH2O) 25 cmH2O Vt (Set, mL) 500 mL Ve measured (L/min) 8.93 L/min Neuro Vital Signs Orientation Intubated Speech and communication Intubated/trached Behavior Sedated R Pupil Reacts to light briskly;Round R Pupil size 3 mm L Pupil Reacts to light briskly;Round L Pupil size 3 mm R Hand grasp Unable to assess-unable to follow commands L Hand grasp Unable to assess-unable to follow commands Gag reflex Present 87084-6Asadv HspcFU9567-30-00N74:31:44Nurse NoteTXT1.2.840.177054.1.13.104.2.7.2.72 7879|[id number] for patient osax46293-0BrcrUFPHFBNZEM[address] HjboPfoopqikhGgmkfjfviIKVN0449673346VVU VRJAESEARPSMRYHBPIL7205-05-30W61:31:441 .2.840.770772.1.72.3.15|1.2.840.234520. 1.13.104.2.7.2.727879_[id number] 2022-10-19 7143-35-16K22:23:04Formatting of this [facility] 08:23:04 note might be different from the original.Patient transferred to [facility] ICU for diagnosis of Acute respiratory failure with hypoxia.Patient agrees to transfer/admit plan and verbalized understanding of plan of care, family aware of planPatient intubated and sedated, resp reg unlabored intubated, skin w/d PIV x2 patent, no s/s infiltration noted.No adverse reaction to medications given while in ED. Report given to [place] [facility] personnel 11363-7Sniwsimgs[address] AwacLV3911-85-69U51:26:48Ememercy [facility] NoteTXT1.2.840.402156.1.13.104.2.7.2.72 7879|[id number] for patient crrm79497-0JttvWNQIUTGQKI[id number] POSUBVDMWEPLUOMSGQT9800-17-44T01:26:481 .2.840.475108.1.72.3.15|1.2.840.479819. 1.13.104.2.7.2.727879_[id number] 2022-10-19 9785-81-43L38:21:36Formatting of this [facility] 08:21:36 note might be different from the original.Report called to YOLANDA Angel [address]1670-1Okdlkfucs[address] FgxbUK4443-28-93N43:21:45[facility] NoteTXT1.2.840.731530.1.13.104.2.7.2.72 7879|[id number] for patient xypg20982-7EutjLPDFPJIKAK[id number] VGOYCZDKSWMPJGQZPCQ0949-57-37Q49:21:451 .2.840.527274.1.72.3.15|1.2.840.142762. 1.13.104.2.7.2.727879_[id number] 2022-10-19 9629-10-74Z57:10:00Formatting of this [facility] 08:10:00 note might be different from the original.EMS here for transport 33985-4Uzmpoidhi department KvgsXF6621-83-39Y94:21:28[facility] NoteTXT1.2.840.237952.1.13.104.2.7.2.72 7879|[id number] for patient qhtd28080-8IohwUHTCTSIJGC[id number] MIEUPTIWQTAUXKLPNXD0532-04-70Q19:21:281 .2.840.227061.1.72.3.15|1.2.840.593394. 1.13.104.2.7.2.727879_[id number] 2022-10-19 0226-41-81L09:18:20Formatting of this [facility] 07:18:20 note might be different from the original.Report to Yun GUERRERO. 79816-4Pbeffkthc department PlolMM8779-09-10Y46:18:30[facility] NoteTXT1.2.840.376499.1.13.104.2.7.2.72 7879|[id number] for patient faxx20057-2HbhaHJNVCFMKRU[id number] BMVTIOPZQZORQSJOXCP0265-64-09H89:18:301 .2.840.803458.1.72.3.15|1.2.840.594516. 1.13.104.2.7.2.727879_[id number] 2022-10-19 8622-68-77T09:49:33Formatting of this [facility] 06:49:33 note might be different from the original.Pt intubated with 7.5 ET tube, 1 attempt secured 22cm @ teeth 21408-4Dzfdthxfc department LsjgVI4088-38-49B41:50:27[facility] NoteTXT1.2.840.124201.1.13.104.2.7.2.72 7879|[id number] for patient tayo10795-1CrpfUARRNGMQXB[id number] DVJEBKIKIPZRABQCSRS7297-52-16W02:50:271 .2.840.228964.1.72.3.15|1.2.840.292956. 1.13.104.2.7.2.727879_[id number] 2022-10-19 1962-51-37Z85:51:24Formatting of this [facility] 03:51:24 note might be different from the Sd GUERRERO original.Pt admitted here on 10/05 with pneumonia. Pt was just discharged from a LTAC facility in [place]. Pt complaining of SOB x's 45 min. Pt brought in by [facility] reports pt was 86% on home O2 when they arrived.Albuterol x's2 and 1 atrovent given by EMSSolumedrol 125 mg given by EMS20 G to right handPt on home oxygen @ 2l/nc 11671-9Ibjevikfj department Triage hhfkNT5142-82-22V20:20:36[facility] Triage noteTXT1.2.840.556197.1.13.104.2.7.2.72 7879|[id number] for patient zhks58853-5Wwgfomxfc department [id number] A. [place] [address] Uo[id number] APJXBFVYNMPHSQZMIAF2332-72-33L65:20:361 .[id number]|[id number]. [id number] 2022-10-19 0357-95-97H48:47:00Associated Order(s): [facility] 03:47:00 EKG-12 Lead ROUTINE ONCE; Intubation; Critical CarePre-Procedure Diagnose(s): Respiratory distressPost-Procedure Diagnose(s): Respiratory distress [facility] Emergency Department NotePatient Name: Ricki McclainDate of : 1950 72 year old maleTreatment Room: [address] Record Number: [id number] Care Physician: Liborio HallPatient Escorted by: Self [9]Mode of Arrival: EMS - [place] [51]EMS Treatment Prior to ED Arrival:BRICKMASON HELPER treatment: Medication (comment);Oxygen;Saline lock;monitoring manager BRICKMASON HELPER treatment comments: 20g right hand, solumedrol 125mg IV, Albuterol x's 2, Atrovent x's !Travel and Exposure Screening:SymptomsDoes patient have any of these symptoms?: (not recorded)Exposure ScreeningHas patient had contact with someone with a communicable disease in the last month?: (not recorded)Diseases exposed to:: (not recorded)Is Patient ?: (not recorded)Exposure Date: (not recorded)Chief Complaint:Chief Complaint Patient presents with Shortness of Breath History of Present Illness:Ricki Mcclain is a 72 year old male with numerous medical conditions as listed below who is brought to the ED by EMS for evaluation of SOB. Denies any cough. No chest pain. SOB began this morning. Pt was recently admitted to [facility] 10/05/2022 for management of Pneumonia and just discharged to an LTAC home for further managementHistory provided by: Medical records, patient and EMS personnelLanguage family services specialist used: No Shortness of BreathSeverity: SevereOnset quality: SuddenTiming: ConstantProgression: UnchangedChronicity: ChronicContext: activity Context: not animal exposure, not emotional upset, not fumes, not known allergens, not occupational exposure, not pollens, not smoke exposure, not strong odors, not URI and not weather changes Relieved by: Oxygen and inhalerWorsened by: NothingIneffective treatments: Inhaler, rest and oxygenAssociated symptoms: no abdominal pain, no chest pain, no claudication, no cough, no diaphoresis, no ear pain, no fever, no headaches, no hemoptysis, no neck pain, no PND, no rash, no sore throat, no sputum production, no syncope, no swollen glands, no vomiting and no wheezing Risk factors: no hx of PE/DVT, no obesity, no prolonged immobilization, no recent surgery and no tobacco use 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 - Both Eyes 01/31/2020 Acute respiratory failure with hypoxia 11/07/2019 Idtsu-xd-fxosduz kidney injury 11/05/2019 Adhesive capsulitis of left shoulder 04/22/2019 Anxiety Benign prostatic hyperplasia (BPH) with straining on urination 10/21/2020 Cervical spinal stenosis 10/07/2017 Added automatically from request for surgery [id number] Cervicalgia 07/03/2017 Chronic right shoulder pain 04/01/2017 [...] 10/07/2017 Added automatically from request for surgery [id number] Other insomnia 04/01/2017 Postlaminectomy syndrome 12/30/2017 Added automatically from request for surgery [id number] Range of motion deficit 07/03/2017 Right leg pain 11/05/2019 Right upper limb pain 07/03/2017 Sciatic pain, right Spondylosis 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 12/30/2017 Added automatically from request for surgery [id number] Steroid-induced hyperglycemia 02/12/2019 Type 2 diabetes mellitus with diabetic nephropathy, without long-term current use of insulin 03/29/2017 diet controlled Vitamin D deficiency 11/08/2020 Tetanus received in last 5 years: UnknownChildhood immunizations: Up-to-date Allergies:No Known AllergiesPast Social History:Tobacco Use Former Smokeless Tobacco: Never used smokeless tobacco. Comments: smoked 1 ppd age [age], quit age 64 Vaping Use Never used Alcohol Use Yes; 1.0 standard drink of alcohol per week; 1 Cans of beer, 0 Standard drinks or equivalent. Comments: occasional Drug Use No. Sexual Activity Not currently sexually active; Partners: Female. Past Surgical History:Past Surgical History: Procedure Laterality Date KNEE ARTHROSCOPY Left MEDIAL BRANCH BLOCK 10/24/2017 MEDIAL BRANCH BLOCK (SHX) Right 10/24/2017 Surgeon: Imtiaz Vázquez MD; Location: [place] [facility] OTHER neck surgery RADIOFREQUENCY THERMOCOAGULATION 11/28/2017 RADIOFREQUENCY THERMOCOAGULATION Right 11/28/2017 Surgeon: Imtiaz Vázquez MD; Location: [place] [facility] RADIOFREQUENCY THERMOCOAGULATION Left 02/06/2018 Surgeon: Imtiaz Vázquez MD; Location: [place] [facility] Review of Systems: Review of Systems Constitutional: Positive for fatigue. Negative for diaphoresis and fever. HENT: Negative. Negative for ear pain and sore throat. Eyes: Negative. Respiratory: Positive for shortness of breath. Negative for cough, hemoptysis, sputum production, chest tightness, wheezing and stridor. Breasts: Negative. Cardiovascular: Positive for leg swelling. Negative for chest pain, palpitations, claudication, syncope and PND. Gastrointestinal: Negative. Negative for abdominal pain and vomiting. Genitourinary: Negative. Musculoskeletal: Negative. Negative for neck pain. Skin: Negative. Negative for rash. Neurological: Negative. Negative for headaches. Psychiatric/Behavioral: Negative. All other systems reviewed and are negative.Endocrine: Endocrine negativePhysical Exam: ED Triage Vitals [10/19/22 0400] Weight 82.6 kg (182 lb) Actual or estimated Estimated by patient/family report Height 1.829 m (6') BP (!) 168/83 Pulse 69 Resp 23 Temp 35.6 ?C (96.1 ?F) Temp source Oral SpO2 97 % Measured on On oxygen Physical ExamVitals and nursing note reviewed. Constitutional: General: He is not in acute distress. Appearance: Normal appearance. He is well-developed and normal weight. He is ill-appearing. He is not diaphoretic. HENT: Head: Normocephalic and atraumatic. Nose: Nose normal. No congestion or rhinorrhea. Mouth/Throat: Mouth: Mucous membranes are moist. Pharynx: Oropharynx is clear. Eyes: General: No scleral icterus. Right eye: No discharge. Left eye: No discharge. Extraocular Movements: Extraocular movements intact. Conjunctiva/sclera: Conjunctivae normal. Pupils: Pupils are equal, round, and reactive to light. Cardiovascular: Rate and Rhythm: Normal rate and regular rhythm. Pulses: Normal pulses. Heart sounds: Normal heart sounds. No murmur heard.Pulmonary: Effort: Respiratory distress present. Breath sounds: No stridor. Rhonchi present. No wheezing or rales. Comments: Increased work of breathingDecreased BS bibasilarChest: Chest wall: No tenderness. Abdominal: General: Bowel sounds are normal. There is no distension. Palpations: Abdomen is soft. Tenderness: There is no abdominal tenderness. There is no right CVA tenderness, left CVA tenderness, guarding or rebound. Musculoskeletal: General: No swelling, tenderness, deformity or signs of injury. Normal range of motion. Cervical back: Normal range of motion and neck supple. No rigidity or tenderness. Right lower leg: Edema present. Left lower leg: Edema present. Lymphadenopathy: Cervical: No cervical adenopathy. Skin: General: Skin is warm and dry. Capillary Refill: Capillary refill takes less than 2 seconds. Coloration: Skin is not jaundiced or pale. Findings: No bruising, erythema, lesion or rash. Neurological: General: No focal deficit present. Mental Status: He is alert and oriented to person, place, and time. Cranial Nerves: No cranial nerve deficit. Sensory: No sensory deficit. Motor: No weakness. Coordination: Coordination normal. Gait: Gait normal. Deep Tendon Reflexes: Reflexes normal. Psychiatric: Behavior: Behavior normal. Thought Content: Thought content normal. Judgment: Judgment normal. Radiology:XR CHEST 1 VW Preliminary Result EXAM: XR CHEST 1 VW HISTORY: 72 years-old Male; Provided indication: post intubation . TECHNIQUE: Single frontal view of the chest. COMPARISON: Same day radiographs, CT dated 11/13/2019 IMPRESSION FINDINGS/IMPRESSION: Interval placement of endotracheal tube projecting over [...] are detected. Preliminary Report Dictated by Resident: Rciki Patel XR CHEST 1 VW Preliminary Result EXAM: XR CHEST 1 VW COMPARISON: Chest radiograph 10/05/2022 HISTORY: sob FINDINGS: Lungs: The lungs remain asymmetric due to mildly elevated left hemidiaphragm. Unchanged left lower lung atelectasis. Trace left pleural effusion. Improved ill-defined right lower lung hazy opacity. A 1.7 cm left apical nodule is stable from 11/13/2019. No pneumothorax. Heart/Mediastinum: The cardiac silhouette appears normal accounting for technique. Aortic arch calcifications. Bones and soft tissues: No acute osseous findings are detected. IMPRESSION Improving right lower lung hazy opacity may be due to resolving pneumonia. Stable left lower lung atelectasis and trace pleural effusion. Preliminary Report Dictated by Resident: Mindy Cleaning Lab Results:Lab Results TROPONIN I - Abnormal Result Value Ref Range TROPONIN I 0.108 (*) <=0.034 ng/mL COMP. METABOLIC PANEL (88396) - Abnormal NA 143 135 - 145 mmol/L K 4.8 3.5 - 5.0 mmol/L CL 108 98 - 108 mmol/L CO2 TOTAL 31 23 - 31 mmol/L AGAP 4 2 - 16 BUN 53 (*) 7 - 23 mg/dL GLUCOSE 206 (*) 70 - 110 mg/dL CREATININE 2.46 (*) 0.60 - 1.25 mg/dL TOTAL BILI 0.4 0.1 - 1.1 mg/dL CALCIUM 8.9 8.6 - 10.6 mg/dL T PROTEIN 6.5 6.3 - 8.2 g/dL ALBUMIN 3.8 3.5 - 5.0 g/dL ALK PHOS 86 34 - 122 U/L ALTv 24 5 - 50 U/L AST(SGOT) 23 13 - 40 U/L eGFR 26.1 mL/min/1.73m2 CBC WITH DIFF - Abnormal WBC 10.39 4.20 - 10.70 10*3/?L RBC 3.76 (*) 4.26 - 5.52 10*6/?L HGB 12.5 12.2 - 16.4 g/dL HCT 39.7 38.4 - 49.3 % MCV 105.6 (*) 81.7 - 95.6 fL MCH 33.2 (*) 26.1 - 32.7 pg MCHC 31.5 31.2 - 35.0 g/dL RDW-SD 60.3 (*) 38.5 - 51.6 fL RDW-CV 15.5 (*) 12.1 - 15.4 % PLT 284 150 [...] - 6.95 10*3/uL IMM GRAN x10^3 0.27 (*) 0.00 - 0.06 10*3/uL LYMPH x10^3 2.34 1.09 - 3.23 10*3/uL MONO x10^3 0.83 0.36 - 1.02 10*3/uL EOS x10^3 0.45 0.06 - 0.53 10*3/uL BASO x10^3 0.06 0.01 - 0.09 10*3/uL AC PANEL 20 + LACTIC ACID - Abnormal PH 7.15 (*) 7.35 - 7.45 PCO2 76 (*) 35 - 45 mmHg PO2 39 (*) 80 - 100 mmHg HCO3 26 22 - 26 mEq/L BE -4.6 (*) -3.0 - 3.0 mEq/L THB 12.8 (*) 13.5 - 18.0 g/dL %O2HB 70.7 (*) 94.0 - 99.0 % %COHB ART 0.3 0.0 - 1.5 % %METHB ART 0.3 (*) 0.4 - 1.5 % VOL%O2 ART 12.7 (*) 15.0 - 23.0 % NA 143 135 - 145 mmol/L K+ 4.6 3.5 - 5.0 mmol/L AC CA IONZ 5.10 4.50 - 5.30 mg/dL GLUCOSE 192 (*) 70 - 110 mg/dL LACTIC ACID 0.82 0.50 - 2.20 mmol/L N-TERMINAL PRO-BNP - Abnormal NT-proBNP 1,700 (*) <=125 pg/mL ACUTE CARE ARTERIAL BLOOD GAS - Abnormal PH 7.17 (*) 7.35 - 7.45 PCO2 73 (*) 35 - 45 mmHg PO2 33 (*) 80 - 100 mmHg HCO3 26 22 - 26 mEq/L BE -3.7 (*) -3.0 - 3.0 mEq/L LIPASE - Normal LIPASE 81 0 - 220 U/L COVID-19 (ID NOW RAPID TESTING) - Normal SARS-CoV-2 Rapid ID NOW Not Detected Not Detected BLOOD CULTURE SCREEN BLOOD CULTURE SCREEN Orders and Treatments:Orders Placed This Encounter Procedures Intubation Critical Care XR CHEST 1 VW XR CHEST 1 VW TROPONIN I COMP. METABOLIC PANEL (89249) LIPASE, SERUM CBC WITH DIFF AC Panel 20 + Lactic Acid BLOOD CULTURE SCREEN BLOOD CULTURE SCREEN N-TERMINAL PRO-BNP COVID-19 (ID NOW TESTING) LAB ONLY COVID INTERPRETATION Acute Care Arterial Blood Gas. O2 Per Protocol BI-PAP Orders Placed This Encounter Medications magnesium sulfate in water 2 gram/50 mL (4 %) infusion 2 g bumetanide (BUMEX) injection 1.25 mg etomidate (AMIDATE) injection 24 mg DISCONTD: succinylcholine (QUELICIN) injection 120 mg propofoL IV infusion succinylcholine (QUELICIN) injection 120 mg rocuronium (ZEMURON) injection 50 mg First Provider Eval:ED Events Date/Time Event User Comments 10/19/22415 Medical Screening Begins ANNA MARIE BUCK MD -- 10/19/22415 First Provider Evaluation ANNA MARIE BUCK MD -- No notes of EC Admission Criteria type on file.ED COURSEDiagnosis/Impression as of 10/19/22 0721 Respiratory distress Acute respiratory failure with hypoxia and hypercapnia Chronic kidney disease, unspecified CKD stage Acute on chronic diastolic (congestive) heart failure Uncontrolled type 2 diabetes mellitus with hyperglycemia COPD with acute exacerbation Procedures: EKG-12 Lead ROUTINE ONCEDate/Time: 10/19/2022 3:56 AMPerformed by: Anna Marie Buck MDAuthorized by: Anna Marie Buck MD ECG reviewed by ED Physician in the absence of a building attendant: yes Previous ECG: Previous ECG: Compared to current Similarity: Changes notedInterpretation: Interpretation: normal Rate: ECG rate: 72 ECG rate assessment: normal Rhythm: Rhythm: sinus rhythm QRS: QRS axis: Right QRS intervals: Normal QRS conduction: normal ST segments: ST segments: NormalT waves: T waves: normal Q waves: Abnormal Q-waves: not present IntubationDate/Time: 10/19/2022 6:53 AMPerformed by: Anna Marie Buck MDAuthorized by: Anna Marie Buck MD Consent: Consent obtained: Verbal Consent given by: Patient Risks, benefits, and alternatives were discussed: yes Risks discussed: Aspiration, bleeding, brain injury, , dental trauma, hypoxia and pneumothorax Alternatives discussed: Delayed treatmentUniversal protocol: Procedure explained and questions answered to patient or proxy's satisfaction: yes Relevant documents present and verified: yes Test results available: yes Imaging studies available: yes Required blood products, implants, devices, and special equipment available: yes Site/side marked: yes Immediately prior to procedure, a time out was called: yes Patient identity confirmed: Verbally with patient and arm bandPre-procedure details: Indications: respiratory failure Patient status: Altered mental status Look externally: no concerns Mouth opening - incisor distance: 3 or more finger widths Hyoid-mental distance: 3 or more finger widths Hyoid-thyroid distance: 2 or more finger widths Mallampati score: II Obstruction: none Neck mobility: normal Pharmacologic strategy: RSI Induction agents: Etomidate Paralytics: SuccinylcholineProcedure details: Preoxygenation: BiLevel CPR in progress: no Number of attempts: 1Successful intubation attempt details: Intubation method: Oral Intubation technique: endoscope assisted Bougie used: no Grade view: II Tube size (mm): 7.5 Tube type: Cuffed Tube visualized through cords: yes Placement assessment: ETT at teeth/gumline (cm): 21 Tube secured with: Adhesive tape and ETT pitts Breath sounds: Equal Placement verification: chest rise, colorimetric ETCO2, CXR verification, endoscopic, equal breath sounds, numeric ETCO2 and tube exhalation CXR findings: Appropriate positionPost-procedure details: Procedure completion: Tolerated well, no immediate complicationsCritical CarePerformed by: Anna Marie Buck MDAuthorized by: Anna Marie Buck MD Critical care provider statement: Critical care time (minutes): 75 Critical care start time: 10/19/2022 5:30 AM Critical care end time: 10/19/2022 6:56 AM Critical care time was exclusive of: Separately billable procedures and treating other patients Critical care was necessary to treat or prevent imminent or life-threatening deterioration of the following conditions: Cardiac failure, circulatory failure, endocrine crisis, metabolic crisis, respiratory failure and shock Critical care was time spent personally by me on the following activities: Blood draw for specimens, development of treatment plan with patient or surrogate, discussions with consultants, evaluation of patient's response to treatment, examination of patient, gastric intubation, interpretation of cardiac output measurements, obtaining history from patient or surrogate, ordering and performing treatments and interventions, ordering and review of laboratory studies, ordering and review of radiographic studies, pulse oximetry, re-evaluation of patient's condition, review of old charts and ventilator management I assumed direction of critical care for this patient from another provider in my specialty: no MDM:Medical Decision MakingRicki Mcclain is a 72 year old male with numerous medical condition as listed above who was brought to the ED for evaluation of acute onset SOBProblems Addressed:Acute on chronic diastolic (congestive) heart failure: acute illness or injury Details: Pt with acute on chronic systolic CHF. Bumex 1.25 mg IV administered in the ED with minimal effectAcute respiratory failure with hypoxia and hypercapnia: acute illness or injury Details: Pt with Acute -On- Chronic respiratory failure with Hypoxia and hypercapnia.Was initially placed on BiPAP and repeat ABG demonstrated worsening respiratory failure necessitating intubationChronic kidney disease, unspecified CKD stage: chronic illness or injuryCOPD with acute exacerbation: acute illness or injury Details: Has acute -on chronic COPD with exacerbationAmount and/or Complexity of Data ReviewedIndependent Historian: EMSExternal Data Reviewed: labs, radiology, ECG and notes.Labs: ordered. Decision-making details documented in ED Course.Radiology: ordered and independent interpretation performed. Decision-making details documented in ED Course.ECG/medicine tests: ordered and independent interpretation performed. Decision-making details documented in ED Course. Details: EKG Interpreted by me as:NSRRate: [address] elevation or DepressionDiscussion of management or test interpretation with external provider(s): Discussed pt's presentation, examination, laboratory EKG and imaging study results with [facility] at [facility], Dr Corrigan who has accepted pt for transfer to the MICU in [place] for further evaluation and managementPt intubated, Sedated and paralyzed and remains stable on the ventRiskPrescription drug management.Drug therapy requiring intensive monitoring for toxicity.Decision regarding hospitalization. Flowsheet Documentation: Scoring Tools: No data recorded Disposition/Condition:ED Disposition ED Disposition Admit - ICU Condition Stable Comment -- Discharge Medications:Patient's Medications START taking these medications No medications on file CONTINUE taking these medications which have NOT CHANGED ACETAZOLAMIDE 250 MG TABLET Take 1 tablet by mouth in the morning for 30 days. ALBUTEROL 2.5 MG /3 ML (0.083 %) NEBULIZER SOLUTION Inhale 3 mL every 6 (six) hours as needed for Shortness of Breath or Wheezing. ALBUTEROL 90 MCG/ACTUATION INHALER Inhale 2 Puffs every 6 (six) hours as needed for Wheezing or Shortness of Breath. ARFORMOTEROL 15 MCG/2 ML NEBULIZER SOLUTION Use 2 mL as directed in the morning and 2 mL in the evening. BACLOFEN 5 MG TABLET Take 1 tablet by mouth 3 (three) times daily as needed (Muscle spasms). BENZONATATE (TESSALON PERLES) 100 MG CAPSULE Take 1 capsule by mouth every 8 (eight) hours as needed for Cough. BUDESONIDE 0.5 MG/2 ML NEBULIZER SOLUTION Inhale 2 mL in the morning and 2 mL in the evening. BUMETANIDE 0.5 MG TABLET Take 1 tablet by mouth in the morning for 30 days. CLONIDINE 0.2 MG TABLET Take 1 tablet by mouth 3 (three) times daily as needed (Uncontrolled Hypertension). Take 1 Tab if BP > 150/90 ERGOCALCIFEROL, VITAMIN D2, 1,250 MCG (50,000 UNIT) CAPSULE TAKE 1 CAPSULE BY MOUTH ONCE A WEEK FLUTICASONE PROPIONATE 50 MCG/ACTUATION NASAL SPRAY Use 2 Sprays in each nostril in the morning. GLIPIZIDE XL 2.5 MG 24 HR TABLET Take 1 tablet by mouth in the morning and 1 tablet in the evening. HYDROXYZINE 25 MG TABLET Take 1 tablet by mouth every 12 (twelve) hours as needed for Anxiety or Itching. IPRATROPIUM 0.02 % NEBULIZER SOLUTION Inhale 2.5 mL every 4 (four) hours as needed for Wheezing or Shortness of Breath. LANCETS MISC Use as directed LEVOTHYROXINE 150 MCG TABLET Take 1 tablet by mouth every morning. MAGNESIUM OXIDE 420 MG TAB Take 400 mg by mouth daily. MIRTAZAPINE 7.5 MG TABLET Take 1 tablet by mouth at bedtime. NEBULIZER ACCESSORIES KIT Provide nebulizer kit and appropriate accessories. NIFEDIPINE ER 30 MG TABLET Take 1 tablet by mouth every morning. OXYMETAZOLINE HCL (AFRIN NASAL) Use 1 Puff in each nostril every other day. Patient takes afrin over the counter, takes every other day PRAVASTATIN 40 MG TABLET Take 1 tablet by mouth at bedtime. PREDNISONE 20 MG TABLET Take 2 tablets by mouth in the morning. SPIRONOLACTONE 25 MG TABLET Take 0.5 tablets by mouth in the morning for 30 days. TAMSULOSIN 0.4 MG 24 HR CAPSULE Take 1 capsule by mouth in the morning. TRAZODONE 50 MG TABLET Take 1 tablet by mouth at bedtime. START taking Modified Medications as Prescribed No medications on file STOP taking these medications No medications on file Follow-up:Electronically signed by: Anna Marie Buck MD10/19/22 0658 Anna Marie Buck MD10/19/22 0721 [id number] Emergency department LunpJE6011-94-87G55:21:07Physician Emergency department [id number] [id number] for patient qewx04584-8Fcqmlboli department Note[address] Ap[id number] LPGBVTMEVVRJFTYTPRC7275-75-81W11:21:071 .2.840.091278.1.72.3.15|1.2.840.427831. [id number] 2022-10-10 4439-25-96W10:54:16Formatting of this Nydia robertson RN [facility] 10:54:16 note is different from the original.Images from the original note were not included.TRANSITIONAL CARE MANAGEMENT ASSESSMENT10/10/2022 Ricki McclainIzfnze469041CQjxer Hefner is a 72 year old /White male was admitted on 10/05/22 to [facility], [facility] SURG. 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, without long-term current use of insulin E11.21Stage 4 chronic kidney disease N18.4Elevated brain natriuretic peptide (BNP) level R79.89Acute on chronic diastolic CHF (congestive heart failure), NYHA class 3 I50.33SOB (shortness of breath) R06.02Coronary artery calcification I25.10, I25.84Pneumonia of right lower lobe due to infectious organism J18.9Linked Episodes Type: Episode: Status: Noted: Resolved: Last update: Updated by: TRANSITION OF CARE TCM Active 10/10/2022 10/10/2022 10:52 AM Nydia Ty RN Comments: TCM Uaf-abwj-ok-face outreach documentation:Discharge AssessmentChart Assessed: 10/10/22TCM Outreach Completed: 10/10/22Future Appointments: Future Appointments Provider Department Dept Phone 10/31/2022 2:00 PM Liborio Hall MD [facility] [place] [phone] 11/06/2022 1:00 PM Pauline Henry, PT [facility]- [place] [phone] 11/09/2022 10:30 AM Ya Quintana DO [facility] [phone] CM identified self and reason for calling. Pt reports currently admitted to [facility].Discharge location: [facility] rehab. __Nydia Ty RN, MSN, [facility], CCRN, CCMTransitions of Care ManagerProficient Mobile Lounge Driver Medical Record Clerk ManagementOffice: [phone] signed by Nydia Ty RN at 10/10/2022 10:58 AM YSY31743-1Xdbnlzwdm encounter GlucQA8925-86-80O63:58:05Telephone encounter [id number] 7879|[id number] for patient [id number] [place] [address] Ns[id number] XNXGASWUWQYQLWIZCWH3180-64-94C81:58:051 .2.840.405581.1.72.3.15|1.2.840.710063. [id number] 2022-10-09 6719-47-77N39:45:00Formatting of this [facility] 03:45:00 note might be different from the Jony RN original.Problem: Discharge PlanningGoal: Adequate for dischargeOutcome: Progressing as expectedGoal: Effective communicationOutcome: Progressing as expected Problem: PainGoal: Control of pain at or below patient's documented comfort goalOutcome: Progressing as expectedGoal: Reduction in pain sensationOutcome: Progressing as expected Problem: Falls, Risk ofGoal: Absence of fallsOutcome: Progressing as expected Problem: Respiratory Function - ImpairedGoal: Able to cough effectivelyOutcome: Progressing as expectedGoal: Adequate oxygenationOutcome: Progressing as expectedGoal: Adequate work of breathingOutcome: Progressing as expected Problem: Skin integrity Impaired (Risk or Actual)Goal: Prevention of new skin breakdownOutcome: Progressing as expected Problem: Venous Thromboembolism, (actual or risk of)Goal: Absence of venous thromboembolism (Risk)Outcome: Progressing as expected 71975-0Xtbg of care ziuqIA9044-75-49Y59:51:33Plan of care noteTXT1.2.840.547729.1.13.104.2.7.2.72 7879|[id number] for patient [id number] Altagracia Borges RN[address] Is[id number] VNJDOXTNQBINABWHUJP9837-67-38K66:51:331 .2.840.161588.1.72.3.15|1.2.840.958747. 1.13.104.2.7.2.727879_[id number] 2022-10-08 0980-19-30I46:31:17Formatting of this [facility] Mckinley la[facility]EC[facility] 12:31:17 note might be different from the RN original.Problem: Discharge PlanningGoal: Adequate for dischargeOutcome: Progressing as expectedGoal: Effective communicationOutcome: Progressing as expected Problem: PainGoal: Control of pain at or below patient's documented comfort goalOutcome: Progressing as expectedGoal: Reduction in pain sensationOutcome: Progressing as expected Problem: Falls, Risk ofGoal: Absence of fallsOutcome: Progressing as expected Problem: Respiratory Function - ImpairedGoal: Able to cough effectivelyOutcome: Progressing as expectedGoal: Adequate oxygenationOutcome: Progressing as expectedGoal: Adequate work of breathingOutcome: Progressing as expected Problem: Skin integrity Impaired (Risk or Actual)Goal: Prevention of new skin breakdownOutcome: Progressing as expected Problem: Venous Thromboembolism, (actual or risk of)Goal: Absence of venous thromboembolism (Risk)Outcome: Progressing as expected 42515-7Zvlw of care bfzwMG5338-40-19K26:31:26Plan of care noteTXT1.2.840.013461.1.13.104.2.7.2.72 7879|[id number] for patient [id number] L Saldana RNUT[id number] JFDQNIGMRKDJGIMYQPV3264-23-12A71:31:261 .2.840.192391.1.72.3.15|1.2.840.736276. 1.13.104.2.7.2.727879_[id number] 2022-10-08 9727-11-79I39:28:00Formatting of this Rola [facility] 02:28:00 note might be different from the Kaci GUERRERO original.Problem: Discharge PlanningGoal: Adequate for dischargeOutcome: Progressing as expectedGoal: Effective communicationOutcome: Progressing as expected Problem: PainGoal: Control of pain at or below patient's documented comfort goalOutcome: Progressing as expectedGoal: Reduction in pain sensationOutcome: Progressing as expected Problem: Falls, Risk ofGoal: Absence of fallsOutcome: Progressing as expected Problem: Respiratory Function - ImpairedGoal: Able to cough effectivelyOutcome: Progressing as expectedGoal: Adequate oxygenationOutcome: Progressing as expectedGoal: Adequate work of breathingOutcome: Progressing as expected Problem: Skin integrity Impaired (Risk or Actual)Goal: Prevention of new skin breakdownOutcome: Progressing as expected Problem: Venous Thromboembolism, (actual or risk of)Goal: Absence of venous thromboembolism (Risk)Outcome: Progressing as expected 83345-0Yplw of care vmjyWW1153-15-65Y95:28:03Plan of care noteTXT1.2.840.470572.1.13.104.2.7.2.72 7879|[id number] for patient rjvo05485-4XbqrFI180739286Bwhiisnlr L Patterson RN[address] Yp[id number] PETIOYCXUURFTZYOVGU9438-48-69V86:28:031 .2.840.301498.1.72.3.15|1.2.840.322780. 1.13.104.2.7.2.727879_[id number] 2022-10-07 4376-72-70H49:16:31Formatting of this Sarahi jarrell [facility] 16:16:31 note might be different from the original.Pharmacist IV to PO Medication Conversion NotePer chart review, patient Ricki Mcclain meets criteria for IV to PO medication conversion. Please note that the following medication(s) have been converted from IV to PO per P&T approved pharmacist IV to PO medication conversion policy: Azithromycin 500 mg IV Q24h to azithromycin 500 mg PO M73uCxuzei call with questions or concerns. ___Sarahi Rodriguez RPNovant Health Rehabilitation Hospitalt: [phone] 16:15 56765-6Xoinbcya cafrVC4841-93-17N88:16:52Progress noteTXT1.2.840.187728.1.13.104.2.7.2.72 7879|[id number] for patient oizm78410-5JmyoHE339068555Fmqvxk Amin [id number] JVUVFXFQHSGZOHPFWVE9094-49-20V49:16:521 .2.840.753746.1.72.3.15|1.2.840.419628. 1.13.104.2.7.2.727879_[id number] 2022-10-07 9096-82-53T68:44:51Formatting of this [facility] 12:44:51 note might be different from the original.Problem: Discharge PlanningGoal: Adequate for dischargeOutcome: Progressing as expectedGoal: Effective communicationOutcome: Progressing as expected Problem: PainGoal: Control of pain at or below patient's documented comfort goalOutcome: Progressing as expectedGoal: Reduction in pain sensationOutcome: Progressing as expected Problem: Falls, Risk ofGoal: Absence of fallsOutcome: Progressing as expected Problem: Respiratory Function - ImpairedGoal: Able to cough effectivelyOutcome: Progressing as expectedGoal: Adequate oxygenationOutcome: Progressing as expectedGoal: Adequate work of breathingOutcome: Progressing as expected Problem: Skin integrity Impaired (Risk or Actual)Goal: Prevention of new skin breakdownOutcome: Progressing as expected Problem: Venous Thromboembolism, (actual or risk of)Goal: Absence of venous thromboembolism (Risk)Outcome: Progressing as expected 28306-4Vsgt of care iusaEN7106-94-84F77:44:53Plan of care noteTXT1.2.840.151606.1.13.104.2.7.2.72 7879|[id number] for patient tjjn40128-7JskcRSLDWSIURZ[id number] GMPFGXPIFABGVXQMLRJ7950-40-91O61:44:531 .2.840.380460.1.72.3.15|1.2.840.647562. 1.13.104.2.7.2.727879_[id number] 2022-10-06 5171-25-76X87:52:53Formatting of this [facility] 21:52:53 note might be different from the original.Problem: Discharge PlanningGoal: Adequate for dischargeOutcome: Progressing as expectedGoal: Effective communicationOutcome: Progressing as expected Problem: PainGoal: Control of pain at or below patient's documented comfort goalOutcome: Progressing as expectedGoal: Reduction in pain sensationOutcome: Progressing as expected Problem: Falls, Risk ofGoal: Absence of fallsOutcome: Progressing as expected Problem: Respiratory Function - ImpairedGoal: Able to cough effectivelyOutcome: Progressing as expectedGoal: Adequate oxygenationOutcome: Progressing as expectedGoal: Adequate work of breathingOutcome: Progressing as expected Problem: Skin integrity Impaired (Risk or Actual)Goal: Prevention of new skin breakdownOutcome: Progressing as expected Problem: Venous Thromboembolism, (actual or risk of)Goal: Absence of venous thromboembolism (Risk)Outcome: Progressing as expected 00474-3Kmcc of care cigfXN6178-71-36E99:52:56Plan of care noteTXT1.2.840.655839.1.13.104.2.7.2.72 7879|[id number] for patient tzcb05735-6SsfjQFWLVCATCS[address] Wpjy[id number] IQOZEZKGRIFYPVNVDDG9966-42-53P44:52:561 .2.840.795151.1.72.3.15|1.2.840.399840. 1.13.104.2.7.2.727879_[id number] 2022-10-06 4292-22-59O68:00:20Formatting of this Yaneli nielson [facility] 18:00:20 note might be different from the RN original.Problem: Discharge PlanningGoal: Adequate for dischargeOutcome: Progressing as expectedGoal: Effective communicationOutcome: Progressing as expected Problem: PainGoal: Control of pain at or below patient's documented comfort goalOutcome: Progressing as expectedGoal: Reduction in pain sensationOutcome: Progressing as expected 76077-0Pjiz of care elxwFV1477-12-90J53:00:23Plan of care noteTXT1.2.840.829522.1.13.104.2.7.2.72 7879|[id number] for patient vgsl77511-3UoxmDF868551857Ykvevgjn [address] StreetVp[id number] HRYJGCLVMXYQWIUKKKJ7835-14-78K68:00:231 .2.840.767055.1.72.3.15|1.2.840.814699. 1.13.104.2.7.2.727879_[id number] 2022-10-06 4457-14-81L26:38:25Formatting of this [facility] 01:38:25 note might be different from the original.Problem: Discharge PlanningGoal: Adequate for dischargeOutcome: Progressing as expectedGoal: Effective communicationOutcome: Progressing as expected Problem: PainGoal: Control of pain at or below patient's documented comfort goalOutcome: Progressing as expectedGoal: Reduction in pain sensationOutcome: Progressing as expected Problem: Falls, Risk ofGoal: Absence of fallsOutcome: Progressing as expected Problem: Respiratory Function - ImpairedGoal: Able to cough effectivelyOutcome: Progressing as expectedGoal: Adequate oxygenationOutcome: Progressing as expectedGoal: Adequate work of breathingOutcome: Progressing as expected 39974-1Uebt of care vjluOS4441-18-32N79:38:31Plan of care noteTXT1.2.840.773123.1.13.104.2.7.2.72 7879|[id number] for patient xpkb02363-3NanmIXKGTZPKFM[id number] PQJJCQZRCCJQMYICOSY2262-64-16Y13:38:311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 work up to be determined after echo 2. Acute on Chronic Hypoxemic Respiratory failurecase mgmt consutl for 10L concentrator at homewean o2 as tolerated 3. Acute diastolic chf exacerbation lasix iv monitor creatinine daily due to DIA 4. DIA on ckd nephrology consultneeds cath but patient with ckd 08/23patient cleared for cath by nephrology and risk of DIA leading to CKD was explained to the patient add pain meds for bilateral knee pain on heparin gttavoid nephrotoxins case mgmt discussing concentrator with him 08/24Left heart cath next weekWean O2 as tolerated 08/25LHC this am with intervention, report pendingICU for monitor, f/u on LHC reportPt with worse SOB and airflow appears restricted. IV solumedrol 125mg IV once, then 40mg BID.-Check CXR, start duonebs. Dr Arredondo to see pt.-Add ISS-Lab in am-Dispo pending resp improvement-Discussed with Dr Arredondo 08/26LHC with LAD stent-Brilinta, statin, BP medsCOPD Ex-On home O2. Much improved from yesterday, Pt feeling much better. States he has O2 concentrator but needs portable to get home.--> CM to see if they can arrange today-DC if O2 can be arranged and OK with cards.-Close f/u as outpt Med Rec Med RecDischarge meds:Stop taking the following medications:LISINOPRIL/HCTZ (ZESTORETIC 20/12.5 MG) 20 MG-12.5 MG TAB 1 TABLET ORAL TWICE DAILY. Continue taking these medications:LEVOTHYROXINE (SYNTHROID) 150 MCG TAB 150 MICROGRAM ORAL DAILY. [TYLENOL PM] 2 TABLET ORAL AT BEDTIME NEEDED. as needed for PAIN CARISOPRODOL (SOMA) 350 MG TAB 350 MILLIGRAM ORAL EVERY 6 HOURS NEEDED. as needed for MUSCLE PAIN Start taking the following new medications:TICAGRELOR (BRILINTA) 90 MG TAB 90 MILLIGRAM ORAL TWICE DAILY. Qty = 60 No Refills ISOSORBIDE DINITRATE (ISOSORBIDE DINITRATE) 20 MG TAB 20 MILLIGRAM ORAL EVERY 8 HOURS. Qty = 90 No Refills CARVEDILOL (COREG) 3.125 MG TAB 6.25 MILLIGRAM ORAL EVERY 12 HOURS. Qty = 60 No Refills hydrALAZINE (APRESOLINE) 25 MG TAB 25 MILLIGRAM ORAL EVERY 8 HOURS. Qty = 90 No Refills ASPIRIN (ASPIRIN) 81 MG TAB.CHEW 81 MILLIGRAM ORAL DAILY. Qty = 30 No Refills ATORVASTATIN (LIPITOR) 80 MG TAB 80 MILLIGRAM ORAL DAILY. Qty = 30 No Refills traMADol (ULTRAM) 50 MG TAB 50 MILLIGRAM ORAL EVERY 6 HOURS NEEDED. as needed for ACUTE PAIN Qty = 15 No Refills methylPREDNISolone (MEDROL 4 MG DOSEPAK) 4 MG TAB.DS.PK 4 MILLIGRAM ORAL DIRECTED. Qty = 1 No Refills ObjectiveVS/I OLast Documented: Result Date Time Pulse Ox 98 08/26 1010 Pulse 52 08/26 1010 Resp 17 08/26 1010 B/P 140/67 08/26 1000 B/P Mean 96 08/26 1000 O2 Delivery Nasal cannula 08/26 0632 O2 Flow Rate 3 08/26 0632 Temp 98.3 08/26 0400 FiO2 32 08/25 0721 24 hour I O ending at 0700: 08/26 0700 08/25 1900 Intake Total 940.00 100.00 Output Total 650 Balance 290.00 100.00 Intake, IV 700.00 100.00 Intake, Oral 240 Number Voids 1 Output, Urine 650 ResultsFindings/Data:Laboratory Tests: 08/26 0437 Chemistry Sodium (134.0 - 147.0 mmol/l) 131 L Potassium (3.6 - 5.2 mmol/L) 4.3 Chloride (98.0 - 107.0 mmol/l) 98 Carbon Dioxide (21.0 - 33.0 mmol/l) 29.9 Anion Gap (0 - 20) 7.4 BUN (7.0 - 18.0 mg/dl) 33 H Creatinine (0.60 - 1.30 mg/dL) 2.10 H Estimated Creat Clear (>30 mL/min) 33 Glomerular Filtr Rate (mL/min) 33 Glucose (70.0 - 110.0 mg/dl) 146 H Calcium (8.0 - 10.5 mg/dl) 8.5 Magnesium (1.8 - 2.4 mg/dl) 1.9 Total Bilirubin (0.0 - 1.0 mg/dl) 0.5 AST (15 - 37 Units/L) 21 ALT (12.0 - 78.0 Units/L) 26 Total Alk Phosphatase (50.0 - 136.0 Units/L) 74 Total Protein (6.4 - 8.2 gm/dL) 5.5 L Albumin (3.2 - 4.7 gm/dl) 2.5 L Hematology WBC (4.5 - 11.0 K/mm3) 4.7 RBC (4.40 - 5.90 M/mm3) 3.07 L Hgb (13.0 - 17.0 gm/dL) 9.9 L Hct (36.0 - 48.0 %) 31.1 L MCV (80.0 - 94.0 UM3) 101.3 H MCH (25.5 - 32.5 UUG) 32.2 MCHC (29.0 - 35.5 gm/dL) 31.8 RDW (11.5 - 15.0 %) 16.5 H Plt Count (150 - 400 K/mm3) 204 MPV (7.4 - 10.4 fl) 10.6 H Neut % (Auto) (49.0 - 76.0 %) 92.0 H Lymph % (Auto) (23.0 - 38.0 %) 5.1 L Graham % (Auto) (1.0 - 10.0 %) 2.1 Eos % (Auto) (1.0 - 5.0 %) 0.0 L Baso % (Auto) (0.0 - 1.0 %) 0.2 Neut # (Auto) (2.4 - 6.3 K/mm3) 4.4 Lymph # (Auto) (1.2 - 4.0 K/mm3) 0.2 L Graham # (Auto) (0.0 - 0.6 K/mm3) 0.1 Eos # (Auto) (0.0 - 0.7 K/MM3) 0.0 Baso # (Auto) (0.0 - 0.2 K/mm3) 0.0 Absolute Nucleated RBC (0.00 - 0.01 X10 3uL) 0.00 Immature Gran % (0.0 - 0.4 %) 0.6 H Nucleated RBC % (0.0 - 0.1 %) 0.0 Immature Gran # (0.00 - 0.07 x10 3/uL) 0.03 Radiology data:Recent Impressions:RADIOLOGY - XR CHEST 1 V 08/25 7961 Report Impression - Status: SIGNED Entered: 08/25/2022 1164 IMPRESSION: 1. Stable chest with perihilar and basilar opacities compatible withareas of edema and pneumonia.Impression By: MorrisRXC2 - Chuck Lin M.D. Free Text Obj NotesFree Text Obj Notes:Physical Exam:General appearance: alert, awake, oriented, no acute distress, pleasant, no respiratory distressHead/Eyes: atraumatic, EOMI, normocephalicENT: moist mucosal membranes, normal nose, normal sinusNeck: non-tender, no JVD, no masses or swellingCardiovascular: normal heart sounds, regular rate rhythm, no murmurRespiratory: bases decreased, pt wih mild-mod SOB. Mildly laboredAbdomen: non-tender, normal bowel sounds, soft, no distentionExtremities: moves all, no calf tenderness, no edemaMusculoskeletal: no CVA tenderness, no midline vertebral tend, no muscle spasmNeuro/MENTAL RETARDATION NURSE: alert, oriented X 3, CNII-XII intactSkin: dry, intact, no rashPsychiatry: normal affect, normal mood Discharge Instructions PCPPCP follow-up:PCP: No Primary or Family Physician Discharge to: Home/Self CareAdditional Discharge Routines: PCP Follow-Up, Structural Metal Fabricator Apprentice Follow-UpDiet: Resume Home Diet/FeedsActivity: As ToleratedDischarge management: greater than 30 mins, face to face encounter Follow-up AppointmentsPCP follow-up: PCP: No Primary or Family Physician PCP follow up timeframe: In 1-2 weeksConsulting provider 1: Provider 1: Yasmine Hager MD Specialty: CardiologyInterventional at 1059 at 2038 RPT #:[id number] OF REPORTDSDischarge [id number]:54:00E.[id number] for patient ugpaXCXFCGJULKASQP1909-53-38E60:59:39 2022-08-26 [id number]:12:00 [facility] HCAMN 07:12:00 [facility] Progress NoteREPORT#:[id number] REPORT STATUS: SignedDATE:08/26/22 TIME: 711 PATIENT: RICKI MCCLAIN UNIT #: [id number]#: [id number] [address] AGE: 72 SEX: M ATTEND: Caren Lopes [facility] AUTHOR: Selina Bedolla MD * ALL edits or amendments must be made on the electronic/computer document * SubjectiveChief complaint:HTN, DM2, HTI9Ktfpnbix:Seen and examined at 0640 in ICU. Awake, alert, conversives. Cardiac cath with stent placement yesterday. HPI unchanged. PMFSHx unchanged. ROS positive for restlessness otherwise negative for F/C/N/V/CP/SOB/DAMON/visual disturbances/auditory abnormalities/heat or cold intolerance/dysuria with tellez/joint pain/ rash/pruruits/ Objective GeneralVS/I O:Vital Signs: Date Time Temp Pulse Resp B/P B/P Pulse O2 O2 Flow FiO2 Mean Ox Delivery Rate 08/26 0701 49 18 164/73 105 98 08/26 0632 98 Nasal 3 cannula 08/26 0630 49 15 154/74 106 98 08/26 0601 49 21 143/69 99 98 / 0530 48 15 154/69 99 97 / 0512 51 17 142/75 102 98 / 0500 49 17 95 / 0431 50 13 174/75 108 98 / 0401 73 19 152/74 104 99 / 0400 36.8 / 0330 57 20 162/72 106 96 08/26 0301 87 40 142/69 98 / 0231 48 15 151/69 99 / 0200 52 13 145/67 97 97 / 0146 54 19 150/92 116 96 / 0100 50 16 156/70 100 98 / 0031 56 25 135/61 88 98 06/ 0000 36.7 08/26 0000 51 17 138/68 96 97 08/25 2330 60 21 131/82 101 96 08/25 2300 49 15 125/65 89 96 08/25 2231 72 18 146/71 101 96 08/25 2201 49 16 170/80 115 99 08/25 2128 61 16 172/76 109 100 08/25 2101 51 14 185/82 118 99 08/26 1999 36.9 08/26 1999 Nasal 3 cannula 08/26 1999 51 15 176/84 120 99 08/25 1943 63 28 184/88 126 99 08/25 1908 58 13 100 08/25 1807 99 Nasal 3 cannula 08/25 1800 53 10 179/84 120 100 08/25 1730 52 19 161/81 111 99 08/25 1700 51 14 165/81 116 100 08/25 1631 50 13 164/74 106 99 08/25 1600 51 17 174/77 110 99 08/25 1543 Nasal 3 cannula 08/25 1540 50 20 99 08/25 1530 53 18 160/75 108 98 08/25 1500 56 20 155/81 112 97 08/25 1448 53 27 166/77 110 99 08/25 1408 55 24 100 08/25 0721 98 Nasal 3 32 cannula 24 hour I O ending at 0700: 08/26 0700 08/25 1900 Intake Total 590.00 100.00 Output Total 650 Balance -60.00 100.00 Intake, IV 350.00 100.00 Intake, Oral 240 Number Voids 1 Output, Urine 650 PATIENT WEIGHT: Weight (lb): 201Weight (oz): 11.57Weight (kg): 91.500 MedicationsActive Meds + DC'd Last 24 HrsSodium Chloride (SODIUM CHLORIDE 0.9%) 1,000 ML .Q20H ONE IV (CAN) Lorazepam (ATIVAN) 0.5 MG ONCE PRN PO Sodium Chloride (SODIUM CHLORIDE 0.45%) 1,000 ML .Q20H IV Methylprednisolone Sodium Succinate (Solu-Medrol 40 MG Vial) 40 MG Q12HR IV Ticagrelor (BRILINTA) 90 MG BID PO Albuterol/Ipratropium (IPRATR-ALBUTEROL 0.5-3 MG/3 ML) 3 ML RTQ6H NEB Hydromorphone HCl (DILAUDID) 1 MG ONCE ONE IV (DC) Oxycodone/Acetaminophen (PERCOCET 7.5/325 MG TABLET) 1 TAB Q4H PRN PRN PO Methylprednisolone Sodium Succinate (Solu-Medrol 125 MG Vial) 125 MG ONCE ONE IV (CAN) Sterile Water (WATER FOR INJECTION) 2 ML ASDIR PRN IV Sterile Water (WATER FOR INJECTION) 1 ML ASDIR PRN IV Sodium Chloride (SODIUM CHLORIDE 0.9%) 1,000 ML .Q10H IV (DC) Mupirocin (BACTROBAN 2% 22 GM OINT) 1 APPLIC BID NASAL Clonidine HCl (CATAPRES) 0.1 MG Q6H PRN PRN PO Sodium Chloride (SODIUM CHLORIDE 0.9%) 1,000 ML .L52M97R IV (DC) Ticagrelor (BRILINTA) 0 .STK-MED ONE .ROUTE (DC) Methylprednisolone Sodium Succinate (Solu-Medrol 125 MG Vial) 0 .STK-MED ONE IV (DC) Verapamil HCl (ISOPTIN) 0 .STK-MED ONE .ROUTE (DC) Heparin Sodium (HEPARIN SODIUM) 0 .STK-MED ONE .ROUTE (DC) Heparin Sodium/Sodium Chloride (HEPARIN 1,000 UNITS/NS 500ML) 1,500 ML .STK-MED ONE IV (DC) Iopamidol (Isovue-370 500ML) 0 .STK-MED ONE .ROUTE (DC) Iopamidol (ISOVUE-370 100ML) 0 .STK-MED ONE .ROUTE (DC) Nitroglycerin/Dextrose (NITROGLYCERIN 200 MCG/ML) 250 ML .STK-MED ONE IV (DC) Fentanyl Citrate (SUBLIMAZE) 0 .STK-MED ONE .ROUTE (DC) Lidocaine (XYLOCAINE 2% 20ML (MP) MDV) 0 .STK-MED ONE .ROUTE (DC) Midazolam HCl (VERSED) 0 .STK-MED ONE .ROUTE (DC) Isosorbide Dinitrate (ISORDIL) 20 MG Q8HR PO Carvedilol (COREG) 12.5 MG Q12HR PO Hydralazine HCl (APRESOLINE) 25 MG Q8HR PO Hydrocodone Bitart/Acetaminophen (NORCO 7.5/325 TABLET) 1 TAB Q4H PRN PRN PO (DC) Morphine Sulfate (morphine SULFATE) 4 MG Q6H PRN PRN IV (DC) Furosemide (LASIX 40MG INJ) 40 MG DAILY IV Acetaminophen (TYLENOL 325MG) 650 MG Q4H PRN PRN PO Albuterol/Ipratropium (IPRATR-ALBUTEROL 0.5-3 MG/3 ML) 3 ML RTQ4H PRN PRN NEB Hydralazine HCl (APRESOLINE) 10 MG Q4H PRN PRN IV Ondansetron HCl (ZOFRAN 2ML) 4 MG Q4H PRN PRN IV Aspirin (ASPIRIN 81MG CHEW) 81 MG DAILY PO Clopidogrel Bisulfate (PLAVIX) 75 MG DAILY PO (DC) Atorvastatin Calcium (Lipitor) 80 MG 2100 PO Physical ExamGeneral appearance: , alert, awake, no acute distressHead/eyes: normal conjunctiva/sclera, normocephalicENT: moist mucous membranesNeck: supple/no meningismus, no JVDCardiovascular: normal heart sounds, regular rate and rhythm, no murmurRespiratory: aerating well, clear to auscultation, normal breath sounds, symmetric expansionAbdomen: non-tender, normal bowel sounds, softGenitourinary: no bladder distentionExtremities: no edema, no swellingMusculoskeletal: normal inspectionNeuro/MENTAL RETARDATION NURSE: alert, oriented X 3Skin: intactPsychiatry: normal mood, normal judgment/insight, normal affect ResultsFindings/Data:Laboratory Tests 08/26 0437 Chemistry Sodium (134.0 - 147.0 mmol/l) 131 L Potassium (3.6 - 5.2 mmol/L) 4.3 Chloride (98.0 - 107.0 mmol/l) 98 Carbon Dioxide (21.0 - 33.0 mmol/l) 29.9 Anion Gap (0 - 20) 7.4 BUN (7.0 - 18.0 mg/dl) 33 H Creatinine (0.60 - 1.30 mg/dL) 2.10 H Estimated Creat Clear (>30 mL/min) 33 Glomerular Filtr Rate (mL/min) 33 Glucose (70.0 - 110.0 mg/dl) 146 H Calcium (8.0 - 10.5 mg/dl) 8.5 Magnesium (1.8 - 2.4 mg/dl) 1.9 Total Bilirubin (0.0 - 1.0 mg/dl) 0.5 AST (15 - 37 Units/L) 21 ALT (12.0 - 78.0 Units/L) 26 Total Alk Phosphatase (50.0 - 136.0 Units/L) 74 Total Protein (6.4 - 8.2 gm/dL) 5.5 L Albumin (3.2 - 4.7 gm/dl) 2.5 L Laboratory Tests 08/26 0437 Hematology WBC (4.5 - 11.0 K/mm3) 4.7 RBC (4.40 - 5.90 M/mm3) 3.07 L Hgb (13.0 - 17.0 gm/dL) 9.9 L Hct (36.0 - 48.0 %) 31.1 L MCV (80.0 - 94.0 UM3) 101.3 H MCH (25.5 - 32.5 UUG) 32.2 MCHC (29.0 - 35.5 gm/dL) 31.8 RDW (11.5 - 15.0 %) 16.5 H Plt Count (150 - 400 K/mm3) 204 MPV (7.4 - 10.4 fl) 10.6 H Neut % (Auto) (49.0 - 76.0 %) 92.0 H Lymph % (Auto) (23.0 - 38.0 %) 5.1 L Graham % (Auto) (1.0 - 10.0 %) 2.1 Eos % (Auto) (1.0 - 5.0 %) 0.0 L Baso % (Auto) (0.0 - 1.0 %) 0.2 Neut # (Auto) (2.4 - 6.3 K/mm3) 4.4 Lymph # (Auto) (1.2 - 4.0 K/mm3) 0.2 L Graham # (Auto) (0.0 - 0.6 K/mm3) 0.1 Eos # (Auto) (0.0 - 0.7 K/MM3) 0.0 Baso # (Auto) (0.0 - 0.2 K/mm3) 0.0 Absolute Nucleated RBC (0.00 - 0.01 X10 3uL) 0.00 Immature Gran % (0.0 - 0.4 %) 0.6 H Nucleated RBC % (0.0 - 0.1 %) 0.0 Immature Gran # (0.00 - 0.07 x10 3/uL) 0.03 Diagnosis, Assessment PlanHospital course to date:IMPRESSION:1. Non-ST elevation myocardial infarction. 08/26 Cardiac cath 08/25 with 1-2 stents placed according to nursing; No cath report or note to review. 08/24 No new developements. 08/23Cardiac catheterization planned. The patient is at riskfor acute renal failure that may lead to end-stage renal disease. Counseled thepatient on this issue. Cardiac catheterization should be pursued. I will attempt to contact the patient's primary community relations officer to receive baseline renal function information.2. Acute Kidney Injury. 08/26 BETTER. Stable. 08/25 SCr has improved from a peak 3.07 to current 2.17. Ongoing renal recovery may be possible. 3. Hypertensive nephrosclerosis. 08/26 Not controlled; recommendations per cardiology. 08/24 SILVIO/ARB indicated. 08/23 Blood pressure reasonably controlled. More aggressive control pending cardiac issues.4. Diabetes mellitus type 2 with diabetic nephropathy. 08/24 Await am labs 08/23Formally, on insulin. Indicates he has not used insulin in many months, likely secondary to progression of underlying renal disease.5. Chronic kidney disease. Stage 3 08/26 Urine microalbumin not done. 08/24 Normal sized kidneys c/w diabetic nephropathy; 08/23 At risk for contrast-inducedacute renal failure with cardiac catheterization. Low volume contrast indicated. Staged PCI procedures as needed.6. Renal mass. 08/24 Review ultrasound. 7. Renal cysts. 08/24 Complex renal cyst right kidney. Ongoing follow up as outpatient. 8. Edema. Mild. Lasix dosing. Serum creatinine is expected to rise or improve with a diuretic.9. Hyponatremia, mild, secondary to renal failure.10. Anemia. 08/24 Iron studies08/23 Consistent with renal failure.11. Chronic obstructive pulmonary disease. Chronic oxygen use. PLAN: Encourage microalbumin:creatinine ratio to be sent to lab at 0718 RPT #:[id number] OF REPORTPRProgress [id number]:12:[id number] for patient [id number]:19:06 2022-08-25 [id number]:33:00 [facility] 17:33:00 [facility] Progress NoteREPORT#:[id number] REPORT STATUS: SignedDATE:08/25/22 TIME: 1733 PATIENT: RICKI MCCLAIN UNIT #: [id number]#: [id number] [address] AGE: 72 SEX: M ATTEND: Caren Lopes [facility] AUTHOR: Yasmine Hager MD * ALL edits or amendments must be made on the electronic/computer document * SubjectiveChief complaint:Doing ok. Free Text Subj NotesFree Text Subj Notes:Doing ok, no CP Objective GeneralVS/I O:24 hour I O ending at 0700: 08/25 0700 08/24 1900 Intake Total 500.00 Output Total 900 Balance -400.00 Intake, IV 500.00 Output, Urine 900 Vital Signs: Date Time Temp Pulse Resp B/P B/P Pulse O2 O2 Flow FiO2 Mean Ox Delivery Rate 08/25 1543 Nasal 3 cannula 08/25 1540 50 20 99 08/25 1530 53 18 160/75 108 98 08/25 1500 56 20 155/81 112 97 08/25 1448 53 27 166/77 110 99 08/25 1408 55 24 100 08/25 0721 98 Nasal 3 32 cannula 08/25 0442 98.1 54 17 176/88 117.0 98 08/25 0121 4 08/24 2331 97.7 46 16 154/74 100.5 98 Nasal cannula 08/24 2212 98 Nasal 4 cannula 08/24 1919 98.2 58 16 172/87 115.6 97 08/24 1900 98 Nasal 2 cannula PATIENT WEIGHT: Weight (lb): 201Weight (oz): 11.57Weight (kg): 91.500 Medications:Active Meds + DC'd Last 24 HrsSodium Chloride (SODIUM CHLORIDE 0.9%) 1,000 ML .Q20H ONE IV (CAN) Sodium Chloride (SODIUM CHLORIDE 0.45%) 1,000 ML .Q20H IV Methylprednisolone Sodium Succinate (Solu-Medrol 40 MG Vial) 40 MG Q12HR IV Ticagrelor (BRILINTA) 90 MG BID PO Albuterol/Ipratropium (IPRATR-ALBUTEROL 0.5-3 MG/3 ML) 3 ML RTQ6H NEB Hydromorphone HCl (DILAUDID) 1 MG ONCE ONE IV (DC) Oxycodone/Acetaminophen (PERCOCET 7.5/325 MG TABLET) 1 TAB Q4H PRN PRN PO Methylprednisolone Sodium Succinate (Solu-Medrol 125 MG Vial) 125 MG ONCE ONE IV (CAN) Sterile Water (WATER FOR INJECTION) 2 ML ASDIR PRN IV Sterile Water (WATER FOR INJECTION) 1 ML ASDIR PRN IV Sodium Chloride (SODIUM CHLORIDE 0.9%) 1,000 ML .Q10H IV Mupirocin (BACTROBAN 2% 22 GM OINT) 1 APPLIC BID NASAL Clonidine HCl (CATAPRES) 0.1 MG Q6H PRN PRN PO Sodium Chloride (SODIUM CHLORIDE 0.9%) 1,000 ML .[id number] IV (DC) Ticagrelor (BRILINTA) 0 .STK-MED ONE .ROUTE (DC) Methylprednisolone Sodium Succinate (Solu-Medrol 125 MG Vial) 0 .STK-MED ONE IV (DC) Verapamil HCl (ISOPTIN) 0 .STK-MED ONE .ROUTE (DC) Heparin Sodium (HEPARIN SODIUM) 0 .STK-MED ONE .ROUTE (DC) Heparin Sodium/Sodium Chloride (HEPARIN 1,000 UNITS/NS 500ML) 1,500 ML .STK-MED ONE IV (DC) Iopamidol (Isovue-370 500ML) 0 .STK-MED ONE .ROUTE (DC) Iopamidol (ISOVUE-370 100ML) 0 .STK-MED ONE .ROUTE (DC) Nitroglycerin/Dextrose (NITROGLYCERIN 200 MCG/ML) 250 ML .STK-MED ONE IV (DC) Fentanyl Citrate (SUBLIMAZE) 0 .STK-MED ONE .ROUTE (DC) Lidocaine (XYLOCAINE 2% 20ML (MP) MDV) 0 .STK-MED ONE .ROUTE (DC) Midazolam HCl (VERSED) 0 .STK-MED ONE .ROUTE (DC) Isosorbide Dinitrate (ISORDIL) 20 MG Q8HR PO Carvedilol (COREG) 12.5 MG Q12HR PO Hydralazine HCl (APRESOLINE) 25 MG Q8HR PO Hydrocodone Bitart/Acetaminophen (NORCO 7.5/325 TABLET) 1 TAB Q4H PRN PRN PO (DC) Morphine Sulfate (morphine SULFATE) 4 MG Q6H PRN PRN IV (DC) Furosemide (LASIX 40MG INJ) 40 MG DAILY IV Acetaminophen (TYLENOL 325MG) 650 MG Q4H PRN PRN PO Albuterol/Ipratropium (IPRATR-ALBUTEROL 0.5-3 MG/3 ML) 3 ML RTQ4H PRN PRN NEB Hydralazine HCl (APRESOLINE) 10 MG Q4H PRN PRN IV Ondansetron HCl (ZOFRAN 2ML) 4 MG Q4H PRN PRN IV Aspirin (ASPIRIN 81MG CHEW) 81 MG DAILY PO Clopidogrel Bisulfate (PLAVIX) 75 MG DAILY PO (DC) Atorvastatin Calcium (Lipitor) 80 MG 2100 PO Physical ExamGeneral appearance: alert, awake, orientedHead/Eyes: atraumatic, PERRLENT: moist mucosal membranesNeck: full range of motion, no JVDCardiovascular: CV assessment: regular rate and rhythmRespiratory: clear to auscultation, no distressAbdomen: soft, non-tender, normal bowel sounds, no distention, no guardingGenitourinary: no flank pain, no urinary catheterUpper extremity: UE assessment: normal temperature, no edemaLower extremity: LE assessment: edema (1+), normal temperatureNeuro/MENTAL RETARDATION NURSE: alert, normal speechPsychiatry: normal affect ResultsFindings/Data:Laboratory Tests 08/26 443 Chemistry Sodium (134.0 - 147.0 mmol/l) 134 Potassium (3.6 - 5.2 mmol/L) 3.7 Chloride (98.0 - 107.0 mmol/l) 98 Carbon Dioxide (21.0 - 33.0 mmol/l) 34.8 H Anion Gap (0 - 20) 4.9 BUN (7.0 - 18.0 mg/dl) 35 H Creatinine (0.60 - 1.30 mg/dL) 2.17 H Estimated Creat Clear (>30 mL/min) 32 Glomerular Filtr Rate (mL/min) 32 Glucose (70.0 - 110.0 mg/dl) 125 H Calcium (8.0 - 10.5 mg/dl) 8.2 Laboratory Tests 08/26 443 Hematology WBC (4.5 - 11.0 K/mm3) 4.8 RBC (4.40 - 5.90 M/mm3) 2.87 L Hgb (13.0 - 17.0 gm/dL) 9.0 L Hct (36.0 - 48.0 %) 28.0 L MCV (80.0 - 94.0 UM3) 97.6 H MCH (25.5 - 32.5 UUG) 31.4 MCHC (29.0 - 35.5 gm/dL) 32.1 RDW (11.5 - 15.0 %) 16.1 H Plt Count (150 - 400 K/mm3) 180 MPV (7.4 - 10.4 fl) 10.4 Neut % (Auto) (49.0 - 76.0 %) 75.5 Lymph % (Auto) (23.0 - 38.0 %) 14.1 L Graham % (Auto) (1.0 - 10.0 %) 6.9 Eos % (Auto) (1.0 - 5.0 %) 2.5 Baso % (Auto) (0.0 - 1.0 %) 0.6 Neut # (Auto) (2.4 - 6.3 K/mm3) 3.6 Lymph # (Auto) (1.2 - 4.0 K/mm3) 0.7 L Graham # (Auto) (0.0 - 0.6 K/mm3) 0.3 Eos # (Auto) (0.0 - 0.7 K/MM3) 0.1 Baso # (Auto) (0.0 - 0.2 K/mm3) 0.0 Absolute Nucleated RBC (0.00 - 0.01 X10 3uL) 0.00 Immature Gran % (0.0 - 0.4 %) 0.4 Nucleated RBC % (0.0 - 0.1 %) 0.0 Immature Gran # (0.00 - 0.07 x10 3/uL) 0.02 Laboratory Tests 08/25 0445 Serology SARS-CoV-2 Ag (Rapid) (NEGATIVE) NEGATIVE Radiology data:Recent Impressions:RADIOLOGY - XR CHEST 1 V 08/25 1431 Report Impression - Status: SIGNED Entered: 08/25/2022 8468 IMPRESSION: 1. Stable chest with perihilar and basilar opacities compatible withareas of edema and pneumonia.Impression By: MorrisRXC2 - Chuck Lin M.D. Diagnosis, Assessment PlanProblem List/A P: 1. Elevated troponin Free Text DxA P NotesFree Text DxA P Notes:Mr. Mcclain is a 72 y/o male w/ PMHx: HTN, CKD, COPD (2LNC at home), T2DM, hypothyroidism presents to ED today for sob. Patient experiences shortness of breath w/ exertion intermittent for several months, progressing worse in past few days. Dr. Hager is consulted. He reports orthopnea. He denied fever, no cough. Patient denied chest discomfort, reports intermittent palpitation. No n/v/d. Workup: Temp 102.3 -100.7F. Hb 9.6, Hct 29.6. Na 131, K 5.2, BUN 52, Cr 3.07, Mg 2.2. First troponin 8391, 2nd and 3rd are pending. EKG showdnsr w/ IRBBB w/nonspecific TWI w/ HR 78bpm w/ normal ST segment. BNP 4840. CXR showed mild congesiton w/ patchy b/l LL airspace and small lt pleural effusion. Lactic acid1.2. UA pending. - Elevated troponin. No chest pain Troponin 8391, 8381, 6556. EKG w/ nonspecific TWI w/ normal ST w/ IRBBB. echocardiogram showed EF 35-40% on Heparin drip On atorvastatins, ASA and Plavix. change metoprolol to carvedilol 12.5mg po bid. Discussed [facility] w/ possible PCI +/- stents w/ Dr. Hager next Saturday. Risks and benefits are included. He wishes to proceed w/ the procedure. - Dyspnea. Multfactors: CKD, CHF. BNP 4840. BReathing better. - CHF. On coreg and bidil, not on ACEIs/ARBs/ARNIs d/t elevated Cr. Diuretic per Nephro. 1.2 L fluid restriction. Low Na diet. Strick I O. - Elevated Cr/CKD. Per nephrology Cr 2.26 - improving - COPD. - HTN. BP suboptimal. Dc norvasc On Imdur/Hydralazine, Coreg. Hydralazine prn. 08/25/2022:Patient was taken to the [facility] today and coronary angiogram done showed severe proximal LAD lesion 95%, and did PCI with 1 drug-eluting stent 3.5X 48 mmand postdilated with 3.5 noncompliant balloon. Patient tolerated procedure well, will switch him to Brilinta, continue with aspirin and will give him IV fluids. Monitor creatinine as the patient had DIA on presentation at 1735 RPT #:[id number] OF REPORTPRProgress [id number]:33:00E.[id number] for patient [id number]:36:13 2022-08-25 [id number]:26:00 [facility] 14:26:00 [facility] ([facility])Pulmonary Consultation NoteREPORT#:[id number] REPORT STATUS: SignedDATE:08/25/22 TIME: 1426 PATIENT: RICKI MCCLAIN UNIT #: [id number]#: [id number] [address] [birth year] AGE: 72 SEX: M ATTEND: Caren Lopes MDA AUTHOR: Lucio Arredondo MD * ALL edits or amendments must be made on the electronic/computer document * History of Present Illness HPIRequesting clinician: Tyrone complaint:SOBHPI:This patient is a 72-year-old white male with past medical hypertension, diabetes, chronic kidney disease, COPD, coronary disease presenting with chest pain. The patient was admitted on 08/21/2022. At that time he had worsening shortness of breath and chest pain. The patient was seen by cardiology noted tohave elevated troponins. He was started on heparin drip. The initial chest x-ray did show mild congestion and small left pleural effusion. The patient was admitted for further care. Over the last few days the patient's heparin drip. He went to [facility] today and underwent PCI. An echocardiogram was also obtained which did show an EF of 35%. He patient is transferred to the ICU for further care. On arrival the patient is noted to be short of breath with accessory muscle usage and severe wheezing. I was called emergently for evaluation. On review of the x-ray and labs, patient is noted to have elevated BUN and creatinine which appear elevated compared to baseline. Mild anemia noted. Chest x-ray with edema and possible opacities noted bilaterally. Past medical historyCoronary diseaseCongestive heart failureHypertensionCOPDDiabetes Surgical historyCardiac cathAppendixKnee surgery Social history1 pack/day smoker for 40 years Family historyDiabetes REVIEW OF SYSTEMS:GENERAL: Denies fevers.EYES: Denies acute visual changes.ENT: Denies odynophagia.CV: Denies chest pain.RESPIRATORY: As above.GI: Denies nausea or vomiting.: Denies dysuria.LYMPH: Denies lymphadenopathy.HEME: Denies easy bleeding or bruising.NEUROLOGIC: Denies numbness or weakness.PSYCH: Denies anxiety or depression.SKIN: Denies jaundice or rashes.EXTREMITIES: Denies joint pain.ENDOCRINE: Denies hypo or hyperthyroidism. PHYSICAL EXAMINATION:GENERAL: Supine, comfortable, in no acute respiratory distress.EYES: Pupils reactive, lids without pallor.ENT: Oropharynx is clear. Mallampati is 1. Nasal turbinates are clear. CV: S1 and S2. Regular rate and rhythm. No peripheral edema.RESPIRATORY: Decreased breath sounds bilaterally. Respiratory effort is normal.GI: Soft, nontender, and nondistended. No hepatosplenomegaly. : Deferred. NEURO: Alert and responsive. Cranial nerves II through XII intact. Sensation intact to light touch. PSYCH: Normal mood, affect, judgment, and insight. SKIN: No jaundice or rashes. Skin turgor is normal. EXTREMITIES: No clubbing or cyanosis. Joints are normal. History - Adult longitudinalPast medical history:Reports: COPD, Diabetes mellitus, Kidney disease/stones, Thyroid disorder. Additional medical history:COPDPast surgical history:Reports: Knee procedure (Left replacement). Additional surgical history:cervical fussion 2015Family history:Reports: Heart disease. Alcohol use: Denies EtOH useDrug use: Denies recreational drugsSmoking status for patients 13 years old or older: Former SmokerAllergies:Coded Allergies:codeine (Intermediate, RASH 07/23/14)iodine (Intermediate, HIVES ALL OVER 07/23/14) Objective Physical ExamVitals:Last Documented: Result Date Time Pulse Ox 98 08/25 0721 FiO2 32 08/25 0721 O2 Delivery Nasal cannula 08/25 0721 O2 Flow Rate 3 08/25 0721 B/P 176/88 08/25 441 B/P Mean 117.0 08/25 441 Temp 98.1 08/25 441 Pulse 54 08/25 441 Resp 17 08/25 441 General appearance: chronically ill appearing ResultsFindings/Data:Laboratory Tests 08/25/22443:[Embedded Image Not Available]Laboratory Tests 08/26 443 Chemistry Sodium (134.0 - 147.0 mmol/l) 134 Potassium (3.6 - 5.2 mmol/L) 3.7 Chloride (98.0 - 107.0 mmol/l) 98 Carbon Dioxide (21.0 - 33.0 mmol/l) 34.8 H Anion Gap (0 - 20) 4.9 BUN (7.0 - 18.0 mg/dl) 35 H Creatinine (0.60 - 1.30 mg/dL) 2.17 H Estimated Creat Clear (>30 mL/min) 32 Glomerular Filtr Rate (mL/min) 32 Glucose (70.0 - 110.0 mg/dl) 125 H Calcium (8.0 - 10.5 mg/dl) 8.2 Laboratory Tests 08/26 443 Hematology WBC (4.5 - 11.0 K/mm3) 4.8 RBC (4.40 - 5.90 M/mm3) 2.87 L Hgb (13.0 - 17.0 gm/dL) 9.0 L Hct (36.0 - 48.0 %) 28.0 L MCV (80.0 - 94.0 UM3) 97.6 H MCH (25.5 - 32.5 UUG) 31.4 MCHC (29.0 - 35.5 gm/dL) 32.1 RDW (11.5 - 15.0 %) 16.1 H Plt Count (150 - 400 K/mm3) 180 MPV (7.4 - 10.4 fl) 10.4 Neut % (Auto) (49.0 - 76.0 %) 75.5 Lymph % (Auto) (23.0 - 38.0 %) 14.1 L Graham % (Auto) (1.0 - 10.0 %) 6.9 Eos % (Auto) (1.0 - 5.0 %) 2.5 Baso % (Auto) (0.0 - 1.0 %) 0.6 Neut # (Auto) (2.4 - 6.3 K/mm3) 3.6 Lymph # (Auto) (1.2 - 4.0 K/mm3) 0.7 L Graham # (Auto) (0.0 - 0.6 K/mm3) 0.3 Eos # (Auto) (0.0 - 0.7 K/MM3) 0.1 Baso # (Auto) (0.0 - 0.2 K/mm3) 0.0 Absolute Nucleated RBC (0.00 - 0.01 X10 3uL) 0.00 Immature Gran % (0.0 - 0.4 %) 0.4 Nucleated RBC % (0.0 - 0.1 %) 0.0 Immature Gran # (0.00 - 0.07 x10 3/uL) 0.02 Laboratory Tests 08/25 0445 Serology SARS-CoV-2 Ag (Rapid) (NEGATIVE) NEGATIVE Diagnosis, Assessment Plan Free Text DxA P NotesFree Text DxA P Notes:1. Coronary disease/non-STEMIContinue anticoagulation per cardiologyCardiac catheterizationStatus post stent 2. COPDNebulized treatmentsSolu-Medrol 3. Acute pulmonary edemaFollow chest x-rayDiuretics when possibleBiPAP if necessary 4. Acute kidney injury with chronic kidney diseaseElevated creatinine notedMonitorNephrology at 1251 RPT #:[id number] OF [id number]:26 :00E.[id number] for patient [id number]:52:04 2022-08-25 [id number]:17:00 [facility] 14:17:00 [facility] ([facility])Hospitalist Progress NoteREPORT#:[id number] REPORT STATUS: SignedDATE:08/25/22 TIME: 1416 PATIENT: RICKI MCCLAIN UNIT #: [id number]#: [id number] [address]: [birth year] AGE: 72 SEX: M ATTEND: Caren Lopes AUTHOR: Kellie Vanegas * ALL edits or amendments must be made on the electronic/computer document * See AddendumSubjectiveChief complaint:Feeling better todayNo chest painKnee pain betterTolerating dietS/P PTCA this am, report not yet available. Pt in ICU.C/O SOB, no CP.14 point ROS negative unless statedHPI:Physical ExamGeneral appearance: alert, awake, oriented, no acute distress, conversational, mental status normal, no respiratory distressHead/Eyes: atraumatic, PERRLENT: moist mucosal membranesNeck: full range of motion, no JVDCardiovascular: CV assessment: regular rate and rhythmRespiratory: clear to auscultation, no distressAbdomen: soft, non-tender, normal bowel sounds, no distention, no guardingGenitourinary: no flank pain, no urinary catheterUpper extremity: UE assessment: normal temperature, no edemaLower extremity: LE assessment: edema (1+), normal temperatureNeuro/MENTAL RETARDATION NURSE: alert, normal speechPsychiatry: normal affectPatient reports:Yes: cough, pain controlled, shortness of breath. No: abdominal pain, chest pain, chills, constipation, diarrhea, dizziness, fever, headache, nausea, vomiting. Objective GeneralVS/I O:Vital Signs: Date Time Temp Pulse Resp B/P B/P Pulse O2 O2 Flow FiO2 Mean Ox Delivery Rate 08/25 0721 98 Nasal 3 32 cannula 08/25 0442 98.1 54 17 176/88 117.0 98 08/25 0121 4 08/24 2331 97.7 46 16 154/74 100.5 98 Nasal cannula 08/24 2212 98 Nasal 4 cannula 08/24 1919 98.2 58 16 172/87 115.6 97 08/24 1900 98 Nasal 2 cannula 08/24 1610 98.2 50 18 171/90 116.7 99 24 hour I O ending at 0700: 08/25 0700 08/24 1900 Intake Total 500.00 Output Total 900 Balance -400.00 Intake, IV 500.00 Output, Urine 900 PATIENT WEIGHT: Weight (lb): 201Weight (oz): 11.57Weight (kg): 91.500 Medications:Active Meds + DC'd Last 24 HrsSodium Chloride (SODIUM CHLORIDE 0.9%) 1,000 ML .Q20H ONE IV (CAN) Sodium Chloride (SODIUM CHLORIDE 0.45%) 1,000 ML .Q20H IV Methylprednisolone Sodium Succinate (Solu-Medrol 40 MG Vial) 40 MG Q12HR IV Ticagrelor (BRILINTA) 90 MG BID PO Methylprednisolone Sodium Succinate (Solu-Medrol 125 MG Vial) 125 MG ONCE ONE IV (DC) Sterile Water (WATER FOR INJECTION) 2 ML ASDIR PRN IV Sterile Water (WATER FOR INJECTION) 1 ML ASDIR PRN IV Sodium Chloride (SODIUM CHLORIDE 0.9%) 1,000 ML .Q10H IV Mupirocin (BACTROBAN 2% 22 GM OINT) 1 APPLIC BID NASAL Clonidine HCl (CATAPRES) 0.1 MG Q6H PRN PRN PO Sodium Chloride (SODIUM CHLORIDE 0.9%) 1,000 ML .[id number] IV (DC) Ticagrelor (BRILINTA) 0 .STK-MED ONE .ROUTE (DC) Methylprednisolone Sodium Succinate (Solu-Medrol 125 MG Vial) 0 .STK-MED ONE IV (DC) Verapamil HCl (ISOPTIN) 0 .STK-MED ONE .ROUTE (DC) Heparin Sodium (HEPARIN SODIUM) 0 .STK-MED ONE .ROUTE (DC) Heparin Sodium/Sodium Chloride (HEPARIN 1,000 UNITS/NS 500ML) 1,500 ML .STK-MED ONE IV (DC) Iopamidol (Isovue-370 500ML) 0 .STK-MED ONE .ROUTE (DC) Iopamidol (ISOVUE-370 100ML) 0 .STK-MED ONE .ROUTE (DC) Nitroglycerin/Dextrose (NITROGLYCERIN 200 MCG/ML) 250 ML .STK-MED ONE IV (DC) Fentanyl Citrate (SUBLIMAZE) 0 .STK-MED ONE .ROUTE (DC) Lidocaine (XYLOCAINE 2% 20ML (MP) MDV) 0 .STK-MED ONE .ROUTE (DC) Midazolam HCl (VERSED) 0 .STK-MED ONE .ROUTE (DC) Isosorbide Dinitrate (ISORDIL) 20 MG Q8HR PO Carvedilol (COREG) 12.5 MG Q12HR PO Hydralazine HCl (APRESOLINE) 25 MG Q8HR PO Hydrocodone Bitart/Acetaminophen (NORCO 7.5/325 TABLET) 1 TAB Q4H PRN PRN PO Morphine Sulfate (morphine SULFATE) 4 MG Q6H PRN PRN IV Furosemide (LASIX 40MG INJ) 40 MG DAILY IV Acetaminophen (TYLENOL 325MG) 650 MG Q4H PRN PRN PO Albuterol/Ipratropium (IPRATR-ALBUTEROL 0.5-3 MG/3 ML) 3 ML RTQ4H PRN PRN NEB Hydralazine HCl (APRESOLINE) 10 MG Q4H PRN PRN IV Ondansetron HCl (ZOFRAN 2ML) 4 MG Q4H PRN PRN IV Aspirin (ASPIRIN 81MG CHEW) 81 MG DAILY PO Clopidogrel Bisulfate (PLAVIX) 75 MG DAILY PO Atorvastatin Calcium (Lipitor) 80 MG 2100 PO ResultsFindings/Data:Laboratory Tests 08/26 443 Chemistry Sodium (134.0 - 147.0 mmol/l) 134 Potassium (3.6 - 5.2 mmol/L) 3.7 Chloride (98.0 - 107.0 mmol/l) 98 Carbon Dioxide (21.0 - 33.0 mmol/l) 34.8 H Anion Gap (0 - 20) 4.9 BUN (7.0 - 18.0 mg/dl) 35 H Creatinine (0.60 - 1.30 mg/dL) 2.17 H Estimated Creat Clear (>30 mL/min) 32 Glomerular Filtr Rate (mL/min) 32 Glucose (70.0 - 110.0 mg/dl) 125 H Calcium (8.0 - 10.5 mg/dl) 8.2 Laboratory Tests 08/26 443 Hematology WBC (4.5 - 11.0 K/mm3) 4.8 RBC (4.40 - 5.90 M/mm3) 2.87 L Hgb (13.0 - 17.0 gm/dL) 9.0 L Hct (36.0 - 48.0 %) 28.0 L MCV (80.0 - 94.0 UM3) 97.6 H MCH (25.5 - 32.5 UUG) 31.4 MCHC (29.0 - 35.5 gm/dL) 32.1 RDW (11.5 - 15.0 %) 16.1 H Plt Count (150 - 400 K/mm3) 180 MPV (7.4 - 10.4 fl) 10.4 Neut % (Auto) (49.0 - 76.0 %) 75.5 Lymph % (Auto) (23.0 - 38.0 %) 14.1 L Graham % (Auto) (1.0 - 10.0 %) 6.9 Eos % (Auto) (1.0 - 5.0 %) 2.5 Baso % (Auto) (0.0 - 1.0 %) 0.6 Neut # (Auto) (2.4 - 6.3 K/mm3) 3.6 Lymph # (Auto) (1.2 - 4.0 K/mm3) 0.7 L Graham # (Auto) (0.0 - 0.6 K/mm3) 0.3 Eos # (Auto) (0.0 - 0.7 K/MM3) 0.1 Baso # (Auto) (0.0 - 0.2 K/mm3) 0.0 Absolute Nucleated RBC (0.00 - 0.01 X10 3uL) 0.00 Immature Gran % (0.0 - 0.4 %) 0.4 Nucleated RBC % (0.0 - 0.1 %) 0.0 Immature Gran # (0.00 - 0.07 x10 3/uL) 0.02 Laboratory Tests 08/25 0445 Serology SARS-CoV-2 Ag (Rapid) (NEGATIVE) NEGATIVE Free Text Obj NotesFree Text Obj Notes:Physical Exam:General appearance: alert, awake, oriented, no acute distress, pleasant, no respiratory distressHead/Eyes: atraumatic, EOMI, normocephalicENT: moist mucosal membranes, normal nose, normal sinusNeck: non-tender, no JVD, no masses or swellingCardiovascular: normal heart sounds, regular rate rhythm, no murmurRespiratory: bases decreased, pt wih mild-mod SOB. Mildly laboredAbdomen: non-tender, normal bowel sounds, soft, no distentionExtremities: moves all, no calf tenderness, no edemaMusculoskeletal: no CVA tenderness, no midline vertebral tend, no muscle spasmNeuro/MENTAL RETARDATION NURSE: alert, oriented X 3, CNII-XII intactSkin: dry, intact, no rashPsychiatry: normal affect, normal mood Diagnosis, Assessment PlanPlan discussed with: patient, nurse Free Text DxA P NotesFree text DxA P notes:1. NSTEMIno chest painccards followingechohep gttasastatin further ischemic work up to be determined after echo 2. Acute on Chronic Hypoxemic Respiratory failurecase mgmt consutl for 10L concentrator at homewean o2 as tolerated 3. Acute diastolic chf exacerbation lasix iv monitor creatinine daily due to DIA 4. DIA on ckd nephrology consultneeds cath but patient with ckd 08/23patient cleared for cath by nephrology and risk of DIA leading to CKD was explained to the patient add pain meds for bilateral knee pain on heparin gttavoid nephrotoxins case mgmt discussing concentrator with him 08/24Left heart cath next weekWean O2 as tolerated 08/25LHC this am with intervention, report pendingICU for monitor, f/u on LHC reportPt with worse SOB and airflow appears restricted. IV solumedrol 125mg IV once, then 40mg BID.-Check CXR, start duonebs. Dr Arredondo to see pt.-Add ISS-Lab in am-Dispo pending resp improvement-Discussed with Dr Arredondo at 1423 at 2037 Addendum 1: 08/25/221422 by Kellie Vanegas renal fxn improved, IVF mgmt per Dr Bedolla. Lab in am at 1424 at 2037 RPT #:[id number] OF REPORTPRProgress [id number]:17:00E.[id number] for patient [id number]:23:33 2022-08-25 [id number]:19:00 [facility] HCAMN 12:19:00 [facility] ([facility])Nephrology Progress NoteREPORT#:[id number] REPORT STATUS: SignedDATE:08/25/22 TIME: 1219 PATIENT: RICKI MCCLAIN UNIT #: [id number]#: [id number] [address] AGE: 72 SEX: M ATTEND: Caren Lopes MDADM AUTHOR: Selina Bedolla MD * ALL edits or amendments must be made on the electronic/computer document * SubjectiveChief complaint:HTN, DM2, [id number]:No new or overnight events. Anticipating cardiac cath. HPI unchaged. PMFHSx unchanged. ROS unchanged. Objective GeneralVS/I O:Vital Signs: Date Time Temp Pulse Resp B/P B/P Pulse O2 O2 Flow FiO2 Mean Ox Delivery Rate 08/25 0721 98 Nasal 3 32 cannula 08/25 0442 36.7 54 17 176/88 117.0 98 08/25 0121 4 08/24 2331 36.5 46 16 154/74 100.5 98 Nasal cannula 08/24 2212 98 Nasal 4 cannula 08/24 1919 36.8 58 16 172/87 115.6 97 08/24 1900 98 Nasal 2 cannula 08/24 1610 36.8 50 18 171/90 116.7 99 24 hour I O ending at 0700: 08/25 0700 08/24 1900 Intake Total 500.00 Output Total 900 Balance -400.00 Intake, IV 500.00 Output, Urine 900 PATIENT WEIGHT: Weight (lb): 201Weight (oz): 11.57Weight (kg): 91.500 Physical ExamGeneral appearance: alert, awake, no acute distressHead/eyes: normal conjunctiva/sclera, normocephalicENT: moist mucous membranesNeck: supple/no meningismus, no JVDCardiovascular: normal heart sounds, regular rate and rhythm, no murmurRespiratory: aerating well, clear to auscultation, normal breath sounds, symmetric expansionAbdomen: non-tender, normal bowel sounds, softGenitourinary: no bladder distentionExtremities: no edema, no swellingMusculoskeletal: normal inspectionNeuro/MENTAL RETARDATION NURSE: alert, oriented X 3Skin: intactPsychiatry: normal mood, normal judgment/insight, normal affect ResultsFindings/Data:Laboratory Tests 08/26 443 Chemistry Sodium (134.0 - 147.0 mmol/l) 134 Potassium (3.6 - 5.2 mmol/L) 3.7 Chloride (98.0 - 107.0 mmol/l) 98 Carbon Dioxide (21.0 - 33.0 mmol/l) 34.8 H Anion Gap (0 - 20) 4.9 BUN (7.0 - 18.0 mg/dl) 35 H Creatinine (0.60 - 1.30 mg/dL) 2.17 H Estimated Creat Clear (>30 mL/min) 32 Glomerular Filtr Rate (mL/min) 32 Glucose (70.0 - 110.0 mg/dl) 125 H Calcium (8.0 - 10.5 mg/dl) 8.2 Laboratory Tests 08/25 0444 Hematology WBC (4.5 - 11.0 K/mm3) 4.8 RBC (4.40 - 5.90 M/mm3) 2.87 L Hgb (13.0 - 17.0 gm/dL) 9.0 L Hct (36.0 - 48.0 %) 28.0 L MCV (80.0 - 94.0 UM3) 97.6 H MCH (25.5 - 32.5 UUG) 31.4 MCHC (29.0 - 35.5 gm/dL) 32.1 RDW (11.5 - 15.0 %) 16.1 H Plt Count (150 - 400 K/mm3) 180 MPV (7.4 - 10.4 fl) 10.4 Neut % (Auto) (49.0 - 76.0 %) 75.5 Lymph % (Auto) (23.0 - 38.0 %) 14.1 L Graham % (Auto) (1.0 - 10.0 %) 6.9 Eos % (Auto) (1.0 - 5.0 %) 2.5 Baso % (Auto) (0.0 - 1.0 %) 0.6 Neut # (Auto) (2.4 - 6.3 K/mm3) 3.6 Lymph # (Auto) (1.2 - 4.0 K/mm3) 0.7 L Graham # (Auto) (0.0 - 0.6 K/mm3) 0.3 Eos # (Auto) (0.0 - 0.7 K/MM3) 0.1 Baso # (Auto) (0.0 - 0.2 K/mm3) 0.0 Absolute Nucleated RBC (0.00 - 0.01 X10 3uL) 0.00 Immature Gran % (0.0 - 0.4 %) 0.4 Nucleated RBC % (0.0 - 0.1 %) 0.0 Immature Gran # (0.00 - 0.07 x10 3/uL) 0.02 Laboratory Tests 08/25 0445 Serology SARS-CoV-2 Ag (Rapid) (NEGATIVE) NEGATIVE Diagnosis, Assessment PlanHospital course to date:IMPRESSION:1. Non-ST elevation myocardial infarction. 08/24 No new developements. 08/23Cardiac catheterization planned. The patient is at risk for acute renal failure that may lead to end-stage renal disease. Counseled the patient on thisissue. Cardiac catheterization should be pursued. I will attempt to contact the patient's primary community relations officer to receive baseline renal function information.2. Acute Kidney Injury. 08/25 SCr has improved from a peak 3.07 to current 2.17.Ongoing renal recovery may be possible. 3. Hypertensive nephrosclerosis. 08/24 SILVIO/ARB indicated. 08/23 Blood pressure reasonably controlled. More aggressive control pending cardiac issues.4. Diabetes mellitus type 2 with diabetic nephropathy. 08/24 Await am labs 08/23Formally, on insulin. Indicates he has not used insulin in many months, likely secondary to progression of underlying renal disease.5. Chronic kidney disease. Stage 3 08/24 Normal sized kidneys c/w diabetic nephropathy; 08/23 At risk for contrast-induced acute renal failure with cardiac catheterization. Low volume contrast indicated. Staged PCI procedures as needed.6. Renal mass. 08/24 Review ultrasound. 7. Renal cysts. 08/24 Complex renal cyst right kidney. Ongoing follow up as outpatient. 8. Edema. Mild. Lasix dosing. Serum creatinine is expected to rise or improve with a diuretic.9. Hyponatremia, mild, secondary to renal failure.10. Anemia. 08/24 Iron studies08/23 Consistent with renal failure.11. Chronic obstructive pulmonary disease. Chronic oxygen use. PLAN: Follow up microalbumin:creatinine ratio at 1223 RPT #:[id number] OF REPORTPRProgress [id number]:19:[id number] for patient [id number]:23:48 2022-08-24 [id number]:05:00 [facility]N 12:05:00 [facility] ([facility])Hospitalist Progress NoteREPORT#:[id number] REPORT STATUS: SignedDATE:08/24/22 TIME: 1205 PATIENT: RICKI MCCLAIN UNIT #: [id number]#: [id number] [address] AGE: 72 SEX: M ATTEND: Caren Lopes [facility] AUTHOR: Caren Lopes MD * ALL edits or amendments must be made on the electronic/computer document * SubjectiveChief complaint:Feeling better todayNo chest painKnee pain betterTolerating diet 14 point ROS negative unless statedHPI:Physical ExamGeneral appearance: alert, awake, oriented, no acute distress, conversational, mental status normal, no respiratory distressHead/Eyes: atraumatic, PERRLENT: moist mucosal membranesNeck: full range of motion, no JVDCardiovascular: CV assessment: regular rate and rhythmRespiratory: clear to auscultation, no distressAbdomen: soft, non-tender, normal bowel sounds, no distention, no guardingGenitourinary: no flank pain, no urinary catheterUpper extremity: UE assessment: normal temperature, no edemaLower extremity: LE assessment: edema (1+), normal temperatureNeuro/MENTAL RETARDATION NURSE: alert, normal speechPsychiatry: normal affect Objective GeneralVS/I O:Vital Signs: Date Time Temp Pulse Resp B/P B/P Pulse O2 O2 Flow FiO2 Mean Ox Delivery Rate 08/24 1918 36.8 58 16 172/87 115.6 97 08/24 1900 98 Nasal 2 cannula 08/24 1610 36.8 50 18 171/90 116.7 99 08/24 1123 36.6 41 14 156/85 108.6 94 08/24 0936 Nasal 2 cannula 08/24 0739 36.6 48 16 168/84 112.1 96 08/24 0705 98 Nasal 2 cannula 08/24 0500 36.6 51 16 158/90 112.7 98 08/24 0155 Nasal 3 cannula 08/24 0018 36.7 48 16 161/84 109.9 95 08/23 2005 36.9 49 16 142/82 102.2 97 08/23 2005 36.9 49 16 142/82 102.2 97 24 hour I O ending at 0700: 08/24 0700 08/23 1900 Intake Total Output Total 550 Balance -550 Output, Urine 550 Patient 91.5 kg Weight Weight Bed scale Measurement Method PATIENT WEIGHT: Weight (lb): 201Weight (oz): 11.57Weight (kg): 91.500 Medications:Active Meds + DC'd Last 24 HrsSodium Chloride (SODIUM CHLORIDE 0.9%) 1,000 ML .Q20H ONE IV Isosorbide Dinitrate (ISORDIL) 20 MG Q8HR PO Carvedilol (COREG) 12.5 MG Q12HR PO Hydralazine HCl (APRESOLINE) 25 MG Q8HR PO Isosorbide Mononitrate (IMDUR) 60 MG DAILY PO (DC) Hydrocodone Bitart/Acetaminophen (NORCO 7.5/325 TABLET) 1 TAB Q4H PRN PRN PO Morphine Sulfate (morphine SULFATE) 4 MG Q6H PRN PRN IV Furosemide (LASIX 40MG INJ) 40 MG DAILY IV Isosorbide Mononitrate (IMDUR) 30 MG DAILY PO (DC) Acetaminophen (TYLENOL 325MG) 650 MG Q4H PRN PRN PO Albuterol/Ipratropium (IPRATR-ALBUTEROL 0.5-3 MG/3 ML) 3 ML RTQ4H PRN PRN NEB Hydralazine HCl (APRESOLINE) 10 MG Q4H PRN PRN IV Ondansetron HCl (ZOFRAN 2ML) 4 MG Q4H PRN PRN IV Aspirin (ASPIRIN 81MG CHEW) 81 MG DAILY PO Clopidogrel Bisulfate (PLAVIX) 75 MG DAILY PO Metoprolol Succinate (TOPROL XL) 50 MG Q12HR PO (DC) Atorvastatin Calcium (Lipitor) 80 MG 2100 PO Heparin Sodium (HEPARIN 5,000 UNITS/ML INJ) 2,500 UNITS ASDIR PRN IV (DC) Heparin Sodium (HEPARIN 5,000 UNITS/ML INJ) 1,000 UNITS ASDIR PRN IV (DC) Heparin Sodium/Dextrose (HEPARIN 25,000 UNITS/D5W) 500 ML ASDIR IV (DC) Dietitian nutrition assessmentThe data set between the solid lines has been imported from the dietitian's assessment. BMI Calculated: 28.9Nutrition related diagnosis: Nutrition diagnosis details: Nutrition problem: Nutrition etiology: Nutrition signs and symptoms: Nutrition prescription: Dietitian name: Assessment completed: ResultsFindings/Data:Laboratory Tests 08/24 08/24 1009 1009 Chemistry Sodium (134.0 - 147.0 mmol/l) 133 L Potassium (3.6 - 5.2 mmol/L) 4.3 Chloride (98.0 - 107.0 mmol/l) 96 L Carbon Dioxide (21.0 - 33.0 mmol/l) 34.7 H Anion Gap (0 - 20) 6.6 BUN (7.0 - 18.0 mg/dl) 41 H Creatinine (0.60 - 1.30 mg/dL) 2.26 H Estimated Creat Clear (>30 mL/min) 31 Glomerular Filtr Rate (mL/min) 30 Glucose (70.0 - 110.0 mg/dl) 176 H Calcium (8.0 - 10.5 mg/dl) 8.3 Iron (35.0 - 150.0 mcg/dl) 39 TIBC (260.0 - 445.0 mcg/dl) 255 L % Saturation (15 - 50 %) 15 Ferritin (23.9 - 336.2 ng/mL) 217 Laboratory Tests 08/24 08/24 08/23 1009 0425 2149 Coagulation PTT (Ligia) (25.86 - 36.07 SECONDS) 71.50 H 74.80 H 63.80 H Laboratory Tests 08/24 0429 Hematology WBC (4.5 - 11.0 K/mm3) 6.8 RBC (4.40 - 5.90 M/mm3) 2.89 L Hgb (13.0 - 17.0 gm/dL) 9.0 L Hct (36.0 - 48.0 %) 29.1 L MCV (80.0 - 94.0 UM3) 100.7 H MCH (25.5 - 32.5 UUG) 31.1 MCHC (29.0 - 35.5 gm/dL) 30.9 RDW (11.5 - 15.0 %) 16.1 H Plt Count (150 - 400 K/mm3) 168 MPV (7.4 - 10.4 fl) 10.2 Neut % (Auto) (49.0 - 76.0 %) 71.7 Lymph % (Auto) (23.0 - 38.0 %) 18.2 L Graham % (Auto) (1.0 - 10.0 %) 7.0 Eos % (Auto) (1.0 - 5.0 %) 2.2 Baso % (Auto) (0.0 - 1.0 %) 0.6 Neut # (Auto) (2.4 - 6.3 K/mm3) 4.9 Lymph # (Auto) (1.2 - 4.0 K/mm3) 1.2 Graham # (Auto) (0.0 - 0.6 K/mm3) 0.5 Eos # (Auto) (0.0 - 0.7 K/MM3) 0.2 Baso # (Auto) (0.0 - 0.2 K/mm3) 0.0 Absolute Nucleated RBC (0.00 - 0.01 X10 3uL) 0.00 Immature Gran % (0.0 - 0.4 %) 0.3 Nucleated RBC % (0.0 - 0.1 %) 0.0 Immature Gran # (0.00 - 0.07 x10 3/uL) 0.02 Diagnosis, Assessment Plan Free Text DxA P NotesFree text DxA P notes:1. NSTEMIno chest painccards followingechohep gttasastatin further ischemic work up to be determined after echo 2. Acute on Chronic Hypoxemic Respiratory failurecase mgmt consutl for 10L concentrator at homewean o2 as tolerated 3. Acute diastolic chf exacerbation lasix iv monitor creatinine daily due to DIA 4. DIA on ckd nephrology consultneeds cath but patient with ckd 08/23patient cleared for cath by nephrology and risk of DIA leading to CKD was explained to the patient add pain meds for bilateral knee pain on heparin gttavoid nephrotoxins case mgmt discussing concentrator with him 08/24Left heart cath next weekWean O2 as tolerated at 1938 RPT #:[id number] OF REPORTPRProgress [id number]:05:[id number] for patient [id number]:39:06 2022-08-24 [id number]:32:00 [facility] 11:32:00 [facility] ([facility])Hospitalist Progress NoteREPORT#:[id number] REPORT STATUS: SignedDATE:08/24/22 TIME: 1132 PATIENT: RICKI MCCLAIN UNIT #: [id number]#: [id number] [address] [birth year] AGE: 72 SEX: M ATTEND: Caren Lopes [facility] AUTHOR: Caren Lopes MD * ALL edits or amendments must be made on the electronic/computer document * SubjectiveChief complaint:no chest pain overnightstill SOBco bilateral knee painno fever 14 point ROS negative unless statedHPI:Physical ExamGeneral appearance: alert, awake, oriented, no acute distress, conversational, mental status normal, no respiratory distressHead/Eyes: atraumatic, PERRLENT: moist mucosal membranesNeck: full range of motion, no JVDCardiovascular: CV assessment: regular rate and rhythmRespiratory: clear to auscultation, no distressAbdomen: soft, non-tender, normal bowel sounds, no distention, no guardingGenitourinary: no flank pain, no urinary catheterUpper extremity: UE assessment: normal temperature, no edemaLower extremity: LE assessment: edema (1+), normal temperatureNeuro/MENTAL RETARDATION NURSE: alert, normal speechPsychiatry: normal affect Objective GeneralVS/I O:Vital Signs: Date Time Temp Pulse Resp B/P B/P Pulse O2 O2 Flow FiO2 Mean Ox Delivery Rate 08/24 1918 36.8 58 16 172/87 115.6 97 08/24 1900 98 Nasal 2 cannula 08/24 1610 36.8 50 18 171/90 116.7 99 08/24 1123 36.6 41 14 156/85 108.6 94 08/24 0936 Nasal 2 cannula 08/24 0739 36.6 48 16 168/84 112.1 96 08/24 0705 98 Nasal 2 cannula 08/24 0500 36.6 51 16 158/90 112.7 98 08/24 0155 Nasal 3 cannula 08/24 0018 36.7 48 16 161/84 109.9 95 08/23 2005 36.9 49 16 142/82 102.2 97 08/23 2005 36.9 49 16 142/82 102.2 97 24 hour I O ending at 0700: 08/24 0700 08/23 1900 Intake Total Output Total 550 Balance -550 Output, Urine 550 Patient 91.5 kg Weight Weight Bed scale Measurement Method PATIENT WEIGHT: Weight (lb): 201Weight (oz): 11.57Weight (kg): 91.500 Medications:Active Meds + DC'd Last 24 HrsSodium Chloride (SODIUM CHLORIDE 0.9%) 1,000 ML .Q20H ONE IV Isosorbide Dinitrate (ISORDIL) 20 MG Q8HR PO Carvedilol (COREG) 12.5 MG Q12HR PO Hydralazine HCl (APRESOLINE) 25 MG Q8HR PO Isosorbide Mononitrate (IMDUR) 60 MG DAILY PO (DC) Hydrocodone Bitart/Acetaminophen (NORCO 7.5/325 TABLET) 1 TAB Q4H PRN PRN PO Morphine Sulfate (morphine SULFATE) 4 MG Q6H PRN PRN IV Furosemide (LASIX 40MG INJ) 40 MG DAILY IV Isosorbide Mononitrate (IMDUR) 30 MG DAILY PO (DC) Acetaminophen (TYLENOL 325MG) 650 MG Q4H PRN PRN PO Albuterol/Ipratropium (IPRATR-ALBUTEROL 0.5-3 MG/3 ML) 3 ML RTQ4H PRN PRN NEB Hydralazine HCl (APRESOLINE) 10 MG Q4H PRN PRN IV Ondansetron HCl (ZOFRAN 2ML) 4 MG Q4H PRN PRN IV Aspirin (ASPIRIN 81MG CHEW) 81 MG DAILY PO Clopidogrel Bisulfate (PLAVIX) 75 MG DAILY PO Metoprolol Succinate (TOPROL XL) 50 MG Q12HR PO (DC) Atorvastatin Calcium (Lipitor) 80 MG 2100 PO Heparin Sodium (HEPARIN 5,000 UNITS/ML INJ) 2,500 UNITS ASDIR PRN IV (DC) Heparin Sodium (HEPARIN 5,000 UNITS/ML INJ) 1,000 UNITS ASDIR PRN IV (DC) Heparin Sodium/Dextrose (HEPARIN 25,000 UNITS/D5W) 500 ML ASDIR IV (DC) Dietitian nutrition assessmentThe data set between the solid lines has been imported from the dietitian's assessment. BMI Calculated: 28.9Nutrition related diagnosis: Nutrition diagnosis details: Nutrition problem: Nutrition etiology: Nutrition signs and symptoms: Nutrition prescription: Dietitian name: Assessment completed: ResultsFindings/Data:Laboratory Tests 08/24 08/24 1009 1009 Chemistry Sodium (134.0 - 147.0 mmol/l) 133 L Potassium (3.6 - 5.2 mmol/L) 4.3 Chloride (98.0 - 107.0 mmol/l) 96 L Carbon Dioxide (21.0 - 33.0 mmol/l) 34.7 H Anion Gap (0 - 20) 6.6 BUN (7.0 - 18.0 mg/dl) 41 H Creatinine (0.60 - 1.30 mg/dL) 2.26 H Estimated Creat Clear (>30 mL/min) 31 Glomerular Filtr Rate (mL/min) 30 Glucose (70.0 - 110.0 mg/dl) 176 H Calcium (8.0 - 10.5 mg/dl) 8.3 Iron (35.0 - 150.0 mcg/dl) 39 TIBC (260.0 - 445.0 mcg/dl) 255 L % Saturation (15 - 50 %) 15 Ferritin (23.9 - 336.2 ng/mL) 217 Laboratory Tests 08/24 08/24 08/23 1009 0425 2149 Coagulation PTT (Ligia) (25.86 - 36.07 SECONDS) 71.50 H 74.80 H 63.80 H Laboratory Tests 08/24 0429 Hematology WBC (4.5 - 11.0 K/mm3) 6.8 RBC (4.40 - 5.90 M/mm3) 2.89 L Hgb (13.0 - 17.0 gm/dL) 9.0 L Hct (36.0 - 48.0 %) 29.1 L MCV (80.0 - 94.0 UM3) 100.7 H MCH (25.5 - 32.5 UUG) 31.1 MCHC (29.0 - 35.5 gm/dL) 30.9 RDW (11.5 - 15.0 %) 16.1 H Plt Count (150 - 400 K/mm3) 168 MPV (7.4 - 10.4 fl) 10.2 Neut % (Auto) (49.0 - 76.0 %) 71.7 Lymph % (Auto) (23.0 - 38.0 %) 18.2 L Graham % (Auto) (1.0 - 10.0 %) 7.0 Eos % (Auto) (1.0 - 5.0 %) 2.2 Baso % (Auto) (0.0 - 1.0 %) 0.6 Neut # (Auto) (2.4 - 6.3 K/mm3) 4.9 Lymph # (Auto) (1.2 - 4.0 K/mm3) 1.2 Graham # (Auto) (0.0 - 0.6 K/mm3) 0.5 Eos # (Auto) (0.0 - 0.7 K/MM3) 0.2 Baso # (Auto) (0.0 - 0.2 K/mm3) 0.0 Absolute Nucleated RBC (0.00 - 0.01 X10 3uL) 0.00 Immature Gran % (0.0 - 0.4 %) 0.3 Nucleated RBC % (0.0 - 0.1 %) 0.0 Immature Gran # (0.00 - 0.07 x10 3/uL) 0.02 Diagnosis, Assessment Plan Free Text DxA P NotesFree text DxA P notes:1. NSTEMIno chest painccards followingechohep gttasastatin further ischemic work up to be determined after echo 2. Acute on Chronic Hypoxemic Respiratory failurecase mgmt consutl for 10L concentrator at homewean o2 as tolerated 3. Acute diastolic chf exacerbation lasix iv monitor creatinine daily due to DIA 4. DIA on ckd nephrology consultneeds cath but patient with ckd 08/23patient cleared for cath by nephrology and risk of DIA leading to CKD was explained to the patient add pain meds for bilateral knee pain on heparin gttavoid nephrotoxins case mgmt discussing concentrator with him at 1938 RPT #:[id number] OF REPORTPRProgress [id number]:32:[id number] for patient [id number]:38:25 2022-08-24 [id number]:48:00 [facility] HCAMN 07:48:00 [facility] ([facility])Cardiology Progress NoteREPORT#:[id number] REPORT STATUS: SignedDATE:08/24/22 TIME: 07 PATIENT: RICKI MCCLAIN UNIT #: [id number]#: [id number] [address]JKQ: [birth year] AGE: 72 SEX: M ATTEND: Caren Lopes [facility] AUTHOR: Duong Quiñones PROJECT ADMIN * ALL edits or amendments must be made on the electronic/computer document * See AddendumDuong Quiñones 08/24/22 0748:SubjectiveChief complaint:Doing ok.Patient reports:No: chest pain, palpitations, shortness of breath. Nursing reports:No: complaints. Comments:Patient is sitting up, eating breakfast w/o distress, on 2LNC.He is on heparin drip at 18 units/kg/h.Telemetry shows sinus bradycardia, heart rate 52 bpm. Objective GeneralVS/I O:24 hour I O ending at 0700: 08/23 1900 08/24 0700 Intake Total Output Total 550 Balance -550 Output, Urine 550 Patient 91.5 kg Weight Weight Bed scale Measurement Method Vital Signs: Date Time Temp Pulse Resp B/P B/P Pulse O2 O2 Flow FiO2 Mean Ox Delivery Rate 08/24 1123 97.9 41 14 156/85 108.6 94 08/24 0936 Nasal 2 cannula 08/24 0739 97.9 48 16 168/84 112.1 96 08/24 0705 98 Nasal 2 cannula 08/24 0500 97.9 51 16 158/90 112.7 98 08/24 0155 Nasal 3 cannula 08/24 0018 98.1 48 16 161/84 109.9 95 08/23 2005 98.4 49 16 142/82 102.2 97 08/23 2005 98.4 49 16 142/82 102.2 97 08/23 1901 99 Nasal 3 cannula PATIENT WEIGHT: Weight (lb): 201Weight (oz): 11.57Weight (kg): 91.500 Medications:Active Meds + DC'd Last 24 HrsHydrocodone Bitart/Acetaminophen (NORCO 7.5/325 TABLET) 1 TAB Q4H PRN PRN PO Morphine Sulfate (morphine SULFATE) 4 MG Q6H PRN PRN IV Furosemide (LASIX 40MG INJ) 40 MG DAILY IV Isosorbide Mononitrate (IMDUR) 30 MG DAILY PO Acetaminophen (TYLENOL 325MG) 650 MG Q4H PRN PRN PO Albuterol/Ipratropium (IPRATR-ALBUTEROL 0.5-3 MG/3 ML) 3 ML RTQ4H PRN PRN NEB Hydralazine HCl (APRESOLINE) 10 MG Q4H PRN PRN IV Ondansetron HCl (ZOFRAN 2ML) 4 MG Q4H PRN PRN IV Aspirin (ASPIRIN 81MG CHEW) 81 MG DAILY PO Clopidogrel Bisulfate (PLAVIX) 75 MG DAILY PO Metoprolol Succinate (TOPROL XL) 50 MG Q12HR PO Atorvastatin Calcium (Lipitor) 80 MG 2100 PO Heparin Sodium (HEPARIN 5,000 UNITS/ML INJ) 2,500 UNITS ASDIR PRN IV Heparin Sodium (HEPARIN 5,000 UNITS/ML INJ) 1,000 UNITS ASDIR PRN IV Heparin Sodium/Dextrose (HEPARIN 25,000 UNITS/D5W) 500 ML ASDIR IV (CKD) Physical ExamGeneral appearance: alert, awake, oriented, no acute distress, pleasant, conversational, mental status normal, no respiratory distressHead/Eyes: atraumatic, PERRLENT: moist mucosal membranesNeck: full range of motion, no JVDCardiovascular: CV assessment: regular rate and rhythmRespiratory: clear to auscultation, no distressAbdomen: soft, non-tender, normal bowel sounds, no distention, no guardingGenitourinary: no flank pain, no urinary catheterUpper extremity: UE assessment: normal temperature, no edemaLower extremity: LE assessment: edema (1+), normal temperatureNeuro/MENTAL RETARDATION NURSE: alert, normal speechPsychiatry: normal affect ResultsFindings/Data:Laboratory Tests 08/24 08/24 1009 1009 Chemistry Sodium (134.0 - 147.0 mmol/l) 133 L Potassium (3.6 - 5.2 mmol/L) 4.3 Chloride (98.0 - 107.0 mmol/l) 96 L Carbon Dioxide (21.0 - 33.0 mmol/l) 34.7 H Anion Gap (0 - 20) 6.6 BUN (7.0 - 18.0 mg/dl) 41 H Creatinine (0.60 - 1.30 mg/dL) 2.26 H Estimated Creat Clear (>30 mL/min) 31 Glomerular Filtr Rate (mL/min) 30 Glucose (70.0 - 110.0 mg/dl) 176 H Calcium (8.0 - 10.5 mg/dl) 8.3 Iron (35.0 - 150.0 mcg/dl) 39 TIBC (260.0 - 445.0 mcg/dl) 255 L % Saturation (15 - 50 %) 15 Ferritin (23.9 - 336.2 ng/mL) 217 Laboratory Tests 08/23 08/23 08/24 08/24 1548 2149 0425 1009 Coagulation PTT ([place]) (25.86 - 36.07 SECONDS) 43.40 H 63.80 H 74.80 H 71.50 H Laboratory Tests 08/24 0429 Hematology WBC (4.5 - 11.0 K/mm3) 6.8 RBC (4.40 - 5.90 M/mm3) 2.89 L Hgb (13.0 - 17.0 gm/dL) 9.0 L Hct (36.0 - 48.0 %) 29.1 L MCV (80.0 - 94.0 UM3) 100.7 H MCH (25.5 - 32.5 UUG) 31.1 MCHC (29.0 - 35.5 gm/dL) 30.9 RDW (11.5 - 15.0 %) 16.1 H Plt Count (150 - 400 K/mm3) 168 MPV (7.4 - 10.4 fl) 10.2 Neut % (Auto) (49.0 - 76.0 %) 71.7 Lymph % (Auto) (23.0 - 38.0 %) 18.2 L Graham % (Auto) (1.0 - 10.0 %) 7.0 Eos % (Auto) (1.0 - 5.0 %) 2.2 Baso % (Auto) (0.0 - 1.0 %) 0.6 Neut # (Auto) (2.4 - 6.3 K/mm3) 4.9 Lymph # (Auto) (1.2 - 4.0 K/mm3) 1.2 Graham # (Auto) (0.0 - 0.6 K/mm3) 0.5 Eos # (Auto) (0.0 - 0.7 K/MM3) 0.2 Baso # (Auto) (0.0 - 0.2 K/mm3) 0.0 Absolute Nucleated RBC (0.00 - 0.01 X10 3uL) 0.00 Immature Gran % (0.0 - 0.4 %) 0.3 Nucleated RBC % (0.0 - 0.1 %) 0.0 Immature Gran # (0.00 - 0.07 x10 3/uL) 0.02 Results: labs reviewed, vital signs reviewed, vital signs stable, rhythm personally rev'd, current med profile rev'dTelemetry Interpretation:Sinus bradycardia Diagnosis, Assessment PlanProblem List/A P: 1. Elevated troponin Plan discussed with: patient, nurse Free Text DxA P NotesFree Text DxA P Notes:Mr. Mcclain is a 72 y/o male w/ PMHx: HTN, CKD, COPD (2LNC at home), T2DM, hypothyroidism presents to ED today for sob. Patient experiences shortness of breath w/ exertion intermittent for several months, progressing worse in past few days. Dr. Hager is consulted. He reports orthopnea. He denied fever, no cough. Patient denied chest discomfort, reports intermittent palpitation. No n/v/d. Workup: Temp 102.3 -100.7F. Hb 9.6, Hct 29.6. Na 131, K 5.2, BUN 52, Cr 3.07, Mg 2.2. First troponin 8391, 2nd and 3rd are pending. EKG showdnsr w/ IRBBB w/nonspecific TWI w/ HR 78bpm w/ normal ST segment. BNP 4840. CXR showed mild congesiton w/ patchy b/l LL airspace and small lt pleural effusion. Lactic acid1.2. UA pending. - Elevated troponin. No chest pain Troponin 8391, 8381, 6556. EKG w/ nonspecific TWI w/ normal ST w/ IRBBB. echocardiogram showed EF 35-40% on Heparin drip On atorvastatins, ASA and Plavix. change metoprolol to carvedilol 12.5mg po bid. Discussed LHC w/ possible PCI +/- stents w/ Dr. Hager next Saturday. Risks and benefits are included. He wishes to proceed w/ the procedure. - Dyspnea. Multfactors: CKD, CHF. BNP 4840. BReathing better. - CHF. On coreg and bidil, not on ACEIs/ARBs/ARNIs d/t elevated Cr. Diuretic per Nephro. 1.2 L fluid restriction. Low Na diet. Strick I O. - Elevated Cr/CKD. Per nephrology Cr 2.26 - improving - COPD. - HTN. BP suboptimal. Dc norvasc On Imdur/Hydralazine, Coreg. Hydralazine prn. plan LHC on nxt Saturday, early case.NPO after saturday [place]. MDM per Dr. Hager. Yasmine Hager 08/25/22 7826:Attestations Physician AttestationAgree w/findings plan:I have seen and examined the pt, I Agree with the findings and plan as documented by Duong Quiñones. Continue aspirin, Plavix. Case discussed with the patient and nephrology. Patient was significantly elevated troponin and wall motion abnormalities per echocardiogram. He has a very high likelihood of having significant CAD and would benefit from coronary angiogram possible intervention. The risk of DIA and worsening kidney function and possible need for temporary or permanent dialysis were discussed with the patient. Patient agreed to proceed with coronary angiogram possible intervention. Initially plan was to do it Saturday however discussed with the [employer] and plan to do it tomorrow at 1359 at 1737 Addendum 1: 08/24/22 1401 by Duong Quiñones NP d/c heparin drip. at 1402 at 2107 RPT #:[id number] OF REPORTPRProgress [id number]:48:[id number] 031AVAvailable for patient [id number]:00:11 2022-08-24 [id number]:00:00 [facility] HCAMN 07:00:00 [facility] ([facility])Nephrology Progress NoteREPORT#:[id number] REPORT STATUS: SignedDATE:08/24/22 TIME: 0700 PATIENT: RICKI MCCLAIN UNIT #: [id number]#: [id number] [address] AGE: 72 SEX: M ATTEND: Caren Lopes MDA AUTHOR: Selina Bedolla MD * ALL edits or amendments must be made on the electronic/computer document * SubjectiveChief complaint:HTN, DM2, [id number]:Seen at 0700. Awake, alert, conversive. No new or overnigt events. HPI unchanged. PMFSH unchanged. ROS significant for improved shortness of breath, nochest pain, no N/V/F/C, mental status change, visual disturbances, urinary symptoms. Objective GeneralVS/I O:Vital Signs: Date Time Temp Pulse Resp B/P B/P Pulse O2 O2 Flow FiO2 Mean Ox Delivery Rate 08/24 0500 36.6 51 16 158/90 112.7 98 08/24 0155 Nasal 3 cannula 08/24 0018 36.7 48 16 161/84 109.9 95 08/23 2005 36.9 49 16 142/82 102.2 97 08/23 2005 36.9 49 16 142/82 102.2 97 08/23 1901 99 Nasal 3 cannula 08/23 1016 Nasal 3 cannula 24 hour I O ending at 0700: 08/24 0700 08/23 1900 Intake Total Output Total 550 Balance -550 Output, Urine 550 Patient 91.5 kg Weight Weight Bed scale Measurement Method PATIENT WEIGHT: Weight (lb): 201Weight (oz): 11.57Weight (kg): 91.500 Physical ExamGeneral appearance: alert, awake, no acute distressHead/eyes: normal conjunctiva/sclera, normocephalicENT: moist mucous membranesNeck: supple/no meningismus, no JVDCardiovascular: normal heart sounds, regular rate and rhythm, no murmurRespiratory: aerating well, clear to auscultation, normal breath sounds, symmetric expansionAbdomen: non-tender, normal bowel sounds, softGenitourinary: no bladder distentionExtremities: no edema, no swellingMusculoskeletal: normal inspectionNeuro/MENTAL RETARDATION NURSE: alert, oriented X 3Skin: intactPsychiatry: normal mood, normal judgment/insight, normal affect ResultsFindings/Data:Laboratory Tests 08/24 2149 1548 0817 Coagulation PTT (Ligia) (25.86 - 36.07 SECONDS) 74.80 H 63.80 H 43.40 H 82.60 H Laboratory Tests 08/24 08/23 0429 0817 Hematology WBC (4.5 - 11.0 K/mm3) 6.8 8.3 RBC (4.40 - 5.90 M/mm3) 2.89 L 3.06 L Hgb (13.0 - 17.0 gm/dL) 9.0 L 9.6 L Hct (36.0 - 48.0 %) 29.1 L 30.4 L MCV (80.0 - 94.0 UM3) 100.7 H 99.3 H MCH (25.5 - 32.5 UUG) 31.1 31.4 MCHC (29.0 - 35.5 gm/dL) 30.9 31.6 RDW (11.5 - 15.0 %) 16.1 H 16.1 H Plt Count (150 - 400 K/mm3) 168 171 MPV (7.4 - 10.4 fl) 10.2 10.3 Neut % (Auto) (49.0 - 76.0 %) 71.7 77.5 H Lymph % (Auto) (23.0 - 38.0 %) 18.2 L 14.1 L Graham % (Auto) (1.0 - 10.0 %) 7.0 6.8 Eos % (Auto) (1.0 - 5.0 %) 2.2 0.8 L Baso % (Auto) (0.0 - 1.0 %) 0.6 0.6 Neut # (Auto) (2.4 - 6.3 K/mm3) 4.9 6.4 H Lymph # (Auto) (1.2 - 4.0 K/mm3) 1.2 1.2 Graham # (Auto) (0.0 - 0.6 K/mm3) 0.5 0.6 Eos # (Auto) (0.0 - 0.7 K/MM3) 0.2 0.1 Baso # (Auto) (0.0 - 0.2 K/mm3) 0.0 0.1 Absolute Nucleated RBC (0.00 - 0.01 X10 3uL) 0.00 0.00 Immature Gran % (0.0 - 0.4 %) 0.3 0.2 Nucleated RBC % (0.0 - 0.1 %) 0.0 0.0 Immature Gran # (0.00 - 0.07 x10 3/uL) 0.02 0.02 Diagnosis, Assessment PlanHospital course to date:IMPRESSION:1. Non-ST elevation myocardial infarction. 08/24 No new developements. 08/23Cardiac catheterization planned. The patient is at risk for acute renal failure that may lead to end-stage renal disease. Counseled the patient on thisissue. Cardiac catheterization should be pursued. I will attempt to contact the patient's primary community relations officer to receive baseline renal function information.2. Hypertensive nephrosclerosis. 08/24 SILVIO/ARB indicated. 08/23 Blood pressure reasonably controlled. More aggressive control pending cardiac issues.3. Diabetes mellitus type 2 with diabetic nephropathy. 08/24 Await am labs 08/23Formally, on insulin. Indicates he has not used insulin in many months, likely secondary to progression of underlying renal disease.4. Chronic kidney disease, stage IV likely. 08/24 Normal sized kidneys c/w diabetic nephropathy; 08/23 At risk for contrast-induced acute renal failure withcardiac catheterization. Low volume contrast indicated. Staged PCI procedures as needed.5. Renal mass. 08/24 Review ultrasound. 6. Renal cysts. 08/24 Complex renal cyst right kidney. Ongoing follow up as outpatient. 7. Edema. Mild. Lasix dosing. Serum creatinine is expected to rise or improve with a diuretic.8. Hyponatremia, mild, secondary to renal failure.9. Anemia. 08/24 Iron studies08/23 Consistent with renal failure.10. Chronic obstructive pulmonary disease. Chronic oxygen use. PLAN: Am labs: chemistries ordered X 5 days Review ultrasound Iron studies Urine microalbumin to Cr ratio at 0734 RPT #:[id number] OF REPORTPRProgress [id number]:00:[id number] for patient [id number]:35:13 2022-08-23 [id number] HCAMN 15:04:00 [address] [address] [place], [place] [address] PATIENT NAME: RICKI MCCLAIN ADMIT DATE: 08/21/22ACCOUNT NO: [id number] ROOM NO: E.451 AGE: 72 REPORT TYPE: ECHOCARDIOGRAM REPORT DATE OF : 52 SEX: M ADMITTING PHYSICIAN:Caren Lopes MD ATTENDING PHYSICIAN:Caren Lopes MD *[facility]*[address] [facility].[place], [place] [address]Pkosr: [phone]: [phone] Transthoracic Echocardiogram Patient: Ricki Mcclain Date: 08/22/2022 BP: 156 / 74 Location: [place]: [id number] : 1950 Age: 72 Height: 70.1 in / 178 cmAccession#: [id number] Gender: M Weight: 202.4 lb / 92 kgBMI/BSA: 29 kg/m 2 / 2.15 m 2 *Ordering Physician: * Duong Quiñones *Interpreting Physician: * Yasmine Hager MD*Ladle Operator: * Sue Cole RVT, [employer] tions: SOB. Study data: Transthoracic echocardiogram. Procedure: Transthoracicechocardiography was performed. Images were obtained using a [employer] cardiacultrasound machine. Intravenous contrast (Optison) was administered.Complete 2D, complete spectral Doppler, and color Doppler. Patientstatus: Inpatient. Patient room number: 451. Dariela calabrese Left ventricle: The cavity size is mildly dilated. Wall thickness ismildly increased. Systolic function is moderately reduced. The estimatedejection fraction is 35-39%. Regional wall motion abnormalities:Hypokinesis of the apical myocardium.Right ventricle: The cavity size is normal. Systolic function isnormal. Systolic pressure is increased. PATIENT NAME: RICKI MCCLAIN Left atrium: The atrium is normal in size.Right atrium: The atrium is normal in size.Aortic valve: The valve is structurally normal. The valve istrileaflet. There is no evidence of stenosis. There is mildregurgitation.Mitral valve: The valve is structurally normal. There is noevidence of stenosis. There is no regurgitation.Tricuspid valve: The valve is structurally normal. There is mildregurgitation.Pulmonic valve: The valve is structurally normal. There is noregurgitation.Pericardium: There is no pericardial effusion.Pulmonary arteries:The main pulmonary artery is normal-sized.Systemic veins:Inferior vena cava: The vessel is dilated. The respirophasic diameterchanges are blunted (< 50%). Measur ements Left ventricle Value Ref TAISHA, LAX 5.6 cm 4.2 - 5.8 ESD, LAX 4.6 cm 2.5 - 4.0 ESD/bsa, LAX 2.1 cm/m 2 1.3 - 2.1 FS, LAX 17 % 25 - 43 ESD/bsa major ax, 4.5 cm/m 2 -------- A4C TAISHA/bsa minor ax, 4.5 cm/m 2 -------- A4C TAISHA major ax, A2C 10.4 cm -------- TAISHA/bsa major ax, 4.8 cm/m 2 -------- A2C PW, ED 1.3 cm 0.6 - 1.0 IVS/PW, ED 1.14 -------- EF 36 % 52 - 72 E', lat aby, TDI 5.8 cm/sec >=10.0 E/e', lat aby, TDI 17 -------- E', med aby, TDI 5.3 cm/sec >=7.0 E/e', med aby, TDI 18 -------- E', avg, TDI 5.5 cm/sec -------- E/e', avg, TDI 18 <=14 LVOT Value Ref Diam, S 1.92 cm -------- Area 2.9 cm 2 -------- Peak paul, S 1.15 m/sec -------- Mean paul, S 0.78 m/sec -------- VTI, S 27.8 cm -------- Peak grad, S 5 mm Hg -------- Mean grad, S 3 mm Hg -------- SV 81 ml -------- PATIENT NAME: RICKI MCCLAIN Qs 4.52 L/min -------- Qs/bsa 2.1 L/(min-m 2) -------- SV/bsa 38 ml/m 2 -------- Ventricular septum Value Ref IVS, ED 1.5 cm 0.6 - 1.0 Right ventricle Value Ref TAISHA, LAX 3.5 cm -------- Pressure, S 34 mm Hg -------- RVOT Value Ref Peak v, S 0.68 m/sec -------- Peak grad, S 2 mm Hg -------- Left atrium Value Ref AP dim, ES MM 4.4 cm 3.0 - 4.0 LA/Ao root ratio, 1.34 -------- MM Aortic valve Value Ref Leaflet sep, MM 1.66 cm -------- Peak v, S 1.92 m/sec -------- Mean v, S 1.25 m/sec -------- VTI, S 41.2 cm -------- Mean grad, S 7.2 mm Hg -------- Peak grad, S 14.8 mm Hg -------- LVOT/AV, VTI ratio 0.67 -------- DEJA, VTI 1.96 cm 2 -------- LVOT/AV, Vpeak 0.6 -------- ratio DEJA, Vmax 1.74 cm 2 -------- AR peak v 3.6 m/sec -------- AR decel 159 cm/s 2 -------- AR decel time 2262 ms -------- AR PHT 656 ms -------- AR peak grad 52 mm Hg -------- Mitral valve Value Ref Peak E 0.06 m/sec -------- Peak A 0.83 m/sec -------- Decel time 377 ms -------- Peak E/A ratio 1.18 -------- Pulmonic valve Value Ref AR v, ED 0.56 m/sec -------- Tricuspid valve Value Ref TR peak v 2.47 m/sec <=2.8 Peak RV-RA grad, S 24 mm Hg -------- Aortic root Value Ref Root diam, ED MM 3.28 cm -------- PATIENT NAME: RICKI MCCLAIN Pulmonary artery Value Ref Pressure, S 33.0 mm Hg -------- Systemic veins Value Ref Estimated CVP 10 mm Hg -------- Conclu sions Summary: 1. Left ventricle: The cavity size is mildly dilated. Wall thickness is mildly increased. Systolic function is moderately reduced. The estimated ejection fraction is 35-39%. Hypokinesis of the apical myocardium.2. Right ventricle: Systolic pressure is increased. Prepared and electronically signed by Yasmine Hager MD08/23/2022 15:03 at 1504 PATIENT NAME: RICKI MCCLAIN 22T15:04:00E.[id number] e for patient [id number]:04:28 2022-08-23 [id number]:13:00 [facility] HCAMN 13:13:00 [facility] ([facility])Hospitalist Progress NoteREPORT#:[id number] REPORT STATUS: SignedDATE:08/23/22 TIME: 1313 PATIENT: RICKI MCCLAIN UNIT #: [id number]#: [id number] [address] [birth year] AGE: 72 SEX: M ATTEND: Caren Lopes [facility] AUTHOR: Caren Lopes MD * ALL edits or amendments must be made on the electronic/computer document * SubjectiveChief complaint:no chest pain overnightstill SOBco bilateral knee pain no fever 14 point ROS negative unless statedHPI:Physical ExamGeneral appearance: alert, awake, oriented, no acute distress, conversational, mental status normal, no respiratory distressHead/Eyes: atraumatic, PERRLENT: moist mucosal membranesNeck: full range of motion, no JVDCardiovascular: CV assessment: regular rate and rhythmRespiratory: clear to auscultation, no distressAbdomen: soft, non-tender, normal bowel sounds, no distention, no guardingGenitourinary: no flank pain, no urinary catheterUpper extremity: UE assessment: normal temperature, no edemaLower extremity: LE assessment: edema (1+), normal temperatureNeuro/MENTAL RETARDATION NURSE: alert, normal speechPsychiatry: normal affect Objective GeneralVS/I O:Vital Signs: Date Time Temp Pulse Resp B/P B/P Pulse O2 O2 Flow FiO2 Mean Ox Delivery Rate 08/23 1016 Nasal 3 cannula 08/23 0705 98 Nasal 3 cannula 08/23 0345 36.7 55 18 149/81 103.8 98 08/22 2356 Nasal 3 cannula 08/22 2331 36.9 53 18 148/80 102.8 97 08/22 2110 95 Nasal 3 cannula 08/22 1913 36.7 59 16 154/71 98.8 96 08/22 1321 Nasal 3 cannula 24 hour I O ending at 0700: 08/23 0700 08/22 1900 Intake Total Output Total 700 Balance -700 Output, Urine 700 Patient 91.3 kg Weight Weight Bed scale Measurement Method PATIENT WEIGHT: Weight (lb): 201Weight (oz): 4.51Weight (kg): 91.300 Medications:Active Meds + DC'd Last 24 HrsHydrocodone Bitart/Acetaminophen (NORCO 7.5/325 TABLET) 1 TAB Q4H PRN PRN PO Morphine Sulfate (morphine SULFATE) 4 MG Q6H PRN PRN IV Furosemide (LASIX 40MG INJ) 40 MG DAILY IV Isosorbide Mononitrate (IMDUR) 30 MG DAILY PO Acetaminophen (TYLENOL 325MG) 650 MG Q4H PRN PRN PO Albuterol/Ipratropium (IPRATR-ALBUTEROL 0.5-3 MG/3 ML) 3 ML RTQ4H PRN PRN NEB Hydralazine HCl (APRESOLINE) 10 MG Q4H PRN PRN IV Ondansetron HCl (ZOFRAN 2ML) 4 MG Q4H PRN PRN IV Aspirin (ASPIRIN 81MG CHEW) 81 MG DAILY PO Clopidogrel Bisulfate (PLAVIX) 75 MG DAILY PO Metoprolol Succinate (TOPROL XL) 50 MG Q12HR PO Atorvastatin Calcium (Lipitor) 80 MG 2100 PO Heparin Sodium (HEPARIN 5,000 UNITS/ML INJ) 2,500 UNITS ASDIR PRN IV Heparin Sodium (HEPARIN 5,000 UNITS/ML INJ) 1,000 UNITS ASDIR PRN IV Heparin Sodium/Dextrose (HEPARIN 25,000 UNITS/D5W) 500 ML ASDIR IV (CKD) Acetaminophen (TYLENOL 325MG) 650 MG Q4H PRN PRN PO (DC) Albuterol/Ipratropium (IPRATR-ALBUTEROL 0.5-3 MG/3 ML) 3 ML Q4H PRN PRN NEB (DC) Hydralazine HCl (APRESOLINE) 10 MG Q2H PRN PRN IV (DC) Ondansetron HCl (ZOFRAN 2ML) 4 MG Q6H PRN PRN IV (DC) Dietitian nutrition assessmentThe data set between the solid lines has been imported from the dietitian's assessment. BMI Calculated: 29.1Nutrition related diagnosis: Nutrition diagnosis details: Nutrition problem: Nutrition etiology: Nutrition signs and symptoms: Nutrition prescription: Dietitian name: Assessment completed: ResultsFindings/Data:Laboratory Tests 08/23 08/22 08/22 08/22 0817 2050 1449 1449Coagulation INR (0.89 - 1.14) 0.9 PTT (Ligia) (25.86 - 36.07 SECONDS) 82.60 H 41.20 H 55.90 H PT Patient/Control Mix (9.9 - 12.8 10.1SECONDS) Laboratory Tests 08/23 0817 Hematology WBC (4.5 - 11.0 K/mm3) 8.3 RBC (4.40 - 5.90 M/mm3) 3.06 L Hgb (13.0 - 17.0 gm/dL) 9.6 L Hct (36.0 - 48.0 %) 30.4 L MCV (80.0 - 94.0 UM3) 99.3 H MCH (25.5 - 32.5 UUG) 31.4 MCHC (29.0 - 35.5 gm/dL) 31.6 RDW (11.5 - 15.0 %) 16.1 H Plt Count (150 - 400 K/mm3) 171 MPV (7.4 - 10.4 fl) 10.3 Neut % (Auto) (49.0 - 76.0 %) 77.5 H Lymph % (Auto) (23.0 - 38.0 %) 14.1 L Graham % (Auto) (1.0 - 10.0 %) 6.8 Eos % (Auto) (1.0 - 5.0 %) 0.8 L Baso % (Auto) (0.0 - 1.0 %) 0.6 Neut # (Auto) (2.4 - 6.3 K/mm3) 6.4 H Lymph # (Auto) (1.2 - 4.0 K/mm3) 1.2 Graham # (Auto) (0.0 - 0.6 K/mm3) 0.6 Eos # (Auto) (0.0 - 0.7 K/MM3) 0.1 Baso # (Auto) (0.0 - 0.2 K/mm3) 0.1 Absolute Nucleated RBC (0.00 - 0.01 X10 3uL) 0.00 Immature Gran % (0.0 - 0.4 %) 0.2 Nucleated RBC % (0.0 - 0.1 %) 0.0 Immature Gran # (0.00 - 0.07 x10 3/uL) 0.02 Radiology data:Recent Impressions:ULTRASOUND - [facility] 08/23 4445 Report Impression - Status: SIGNED Entered: 08/23/2022 1015 IMPRESSION: 1. Indeterminate 2.5 cm hypoechoic lesion in the right kidney as wellas indeterminate septated cystic structure in the right kidneymeasuring 2.[address] or MRI of the kidneys the with and withoutcontrast utilizing renal mass protocol is recommended.Impression By: MorrisCB5 - Hesham Puri M.D. Diagnosis, Assessment Plan Free Text DxA P NotesFree text DxA P notes:1. NSTEMIno chest painccards followingechohep gttasastatin further ischemic work up to be determined after echo 2. Acute on Chronic Hypoxemic Respiratory failurecase mgmt consutl for 10L concentrator at homewean o2 as tolerated 3. Acute diastolic chf exacerbation lasix iv monitor creatinine daily due to DIA 4. DIA on ckd nephrology consultneeds cath but patient with ckd 08/23patient cleared for cath by nephrology and risk of DIA leading to CKD was explained to the patient add pain meds for bilateral knee pain on heparin gttavoid nephrotoxins case mgmt discussing concentrator with him at 1315 [facility] #:[id number] OF REPORTPRProgress [id number]:13:00E.[id number] for patient [id number]:15:40 2022-08-23 [id number]:38:00 [facility] HCAMN 08:38:00 [facility] ([facility])Cardiology Progress NoteREPORT#:[id number] REPORT STATUS: SignedDATE:08/23/22 TIME: 08 PATIENT: RICKI MCCLAIN UNIT #: [id number]#: [id number] [address] [birth year] AGE: 72 SEX: M ATTEND: Caren Lopes [facility] AUTHOR: Duong Quiñones PROJECT ADMIN * ALL edits or amendments must be made on the electronic/computer document * Duong Quiñones 08/23/22 0838:SubjectiveChief complaint:Doing okLeft knee pain.Denies chest discomfortPatient reports:No: chest pain, nausea, palpitations, shortness of breath. Nursing reports:No: complaints. Comments:Patient is on 2LNC, NAD.Telemetry shows normal sinus rhythm to normal sinus bradycardia.He is on heparin drip at 17 units/kg/h.Tech is at the bedside to do renal ultrasound. Objective GeneralVS/I O:24 hour I O ending at 0700: 08/22 1900 08/23 0700 Intake Total Output Total 700 Balance -700 Output, Urine 700 Patient 91.3 kg Weight Weight Bed scale Measurement Method Vital Signs: Date Time Temp Pulse Resp B/P B/P Pulse O2 O2 Flow FiO2 Mean Ox Delivery Rate 08/23 1016 Nasal 3 cannula 08/23 0705 98 Nasal 3 cannula 08/23 0345 98.1 55 18 149/81 103.8 98 08/22 2356 Nasal 3 cannula 08/22 2331 98.4 53 18 148/80 102.8 97 08/22 2110 95 Nasal 3 cannula 08/22 191 98.1 59 16 154/71 98.8 96 PATIENT WEIGHT: Weight (lb): 201Weight (oz): 4.51Weight (kg): 91.300 Medications:Active Meds + DC'd Last 24 HrsFurosemide (LASIX 40MG INJ) 40 MG DAILY IV Acetaminophen (TYLENOL 325MG) 650 MG Q4H PRN PRN PO Albuterol/Ipratropium (IPRATR-ALBUTEROL 0.5-3 MG/3 ML) 3 ML RTQ4H PRN PRN NEB Hydralazine HCl (APRESOLINE) 10 MG Q4H PRN PRN IV Ondansetron HCl (ZOFRAN 2ML) 4 MG Q4H PRN PRN IV Perflutren Protein Type A Microsphe (OPTISON 3ML VIAL) 0 .STK-MED ONE .ROUTE (DC) Aspirin (ASPIRIN 81MG CHEW) 81 MG DAILY PO Aspirin (ASPIRIN) 81 MG DAILY PO (DC) Clopidogrel Bisulfate (PLAVIX) 75 MG DAILY PO Metoprolol Succinate (TOPROL XL) 50 MG Q12HR PO Atorvastatin Calcium (Lipitor) 80 MG 2100 PO Heparin Sodium (HEPARIN 5,000 UNITS/ML INJ) 2,500 UNITS ASDIR PRN IV Heparin Sodium (HEPARIN 5,000 UNITS/ML INJ) 1,000 UNITS ASDIR PRN IV Heparin Sodium/Dextrose (HEPARIN 25,000 UNITS/D5W) 500 ML ASDIR IV (CKD) Acetaminophen (TYLENOL 325MG) 650 MG Q4H PRN PRN PO (DC) Albuterol/Ipratropium (IPRATR-ALBUTEROL 0.5-3 MG/3 ML) 3 ML Q4H PRN PRN NEB (DC) Hydralazine HCl (APRESOLINE) 10 MG Q2H PRN PRN IV (DC) Ondansetron HCl (ZOFRAN 2ML) 4 MG Q6H PRN PRN IV (DC) Physical ExamGeneral appearance: alert, awake, oriented, no acute distress, pleasant, conversational, mental status normal, no respiratory distressHead/Eyes: atraumatic, PERRLENT: moist mucosal membranesNeck: full range of motion, no JVDCardiovascular: CV assessment: regular rate and rhythmRespiratory: clear to auscultation, no distressAbdomen: soft, non-tender, normal bowel sounds, no distention, no guardingGenitourinary: no flank pain, no urinary catheterUpper extremity: UE assessment: normal temperature, no edemaLower extremity: LE assessment: edema (1+), normal temperatureNeuro/MENTAL RETARDATION NURSE: alert, normal speechPsychiatry: normal affect ResultsFindings/Data:Laboratory Tests 08/22 0817 Coagulation PTT (Ligia) (25.86 - 36.07 SECONDS) 41.20 H 82.60 H Laboratory Tests 08/24 0717 Hematology WBC (4.5 - 11.0 K/mm3) 8.3 RBC (4.40 - 5.90 M/mm3) 3.06 L Hgb (13.0 - 17.0 gm/dL) 9.6 L Hct (36.0 - 48.0 %) 30.4 L MCV (80.0 - 94.0 UM3) 99.3 H MCH (25.5 - 32.5 UUG) 31.4 MCHC (29.0 - 35.5 gm/dL) 31.6 RDW (11.5 - 15.0 %) 16.1 H Plt Count (150 - 400 K/mm3) 171 MPV (7.4 - 10.4 fl) 10.3 Neut % (Auto) (49.0 - 76.0 %) 77.5 H Lymph % (Auto) (23.0 - 38.0 %) 14.1 L Graham % (Auto) (1.0 - 10.0 %) 6.8 Eos % (Auto) (1.0 - 5.0 %) 0.8 L Baso % (Auto) (0.0 - 1.0 %) 0.6 Neut # (Auto) (2.4 - 6.3 K/mm3) 6.4 H Lymph # (Auto) (1.2 - 4.0 K/mm3) 1.2 Graham # (Auto) (0.0 - 0.6 K/mm3) 0.6 Eos # (Auto) (0.0 - 0.7 K/MM3) 0.1 Baso # (Auto) (0.0 - 0.2 K/mm3) 0.1 Absolute Nucleated RBC (0.00 - 0.01 X10 3uL) 0.00 Immature Gran % (0.0 - 0.4 %) 0.2 Nucleated RBC % (0.0 - 0.1 %) 0.0 Immature Gran # (0.00 - 0.07 x10 3/uL) 0.02 Radiology data:Recent Impressions:[facility] - [facility] 08/23 0847 Report Impression - Status: SIGNED Entered: 08/23/2022 1015 IMPRESSION: 1. Indeterminate 2.5 cm hypoechoic lesion in the right kidney as wellas indeterminate septated cystic structure in the right kidneymeasuring 2.[address] or MRI of the kidneys the with and withoutcontrast utilizing renal mass protocol is recommended.Impression By: MorrisCB5 - Hesham Puri M.D. Results: labs reviewed, vital signs reviewed, vital signs stable, rhythm personally rev'd, US results reviewed, current med profile rev'dTelemetry Interpretation:Normal sinus rhythm Diagnosis, Assessment PlanProblem List/A P: 1. Elevated troponin Orders: Procedure Date/time Status THROMBOPLASTIN TIME PARTIAL 08/23 1520 Active Free Text DxA P NotesFree Text DxA P Notes:Mr. Mcclain is a 72 y/o male w/ PMHx: HTN, CKD, COPD (2LNC at home), T2DM, hypothyroidism presents to ED today for sob. Patient experiences shortness of breath w/ exertion intermittent for several months, progressing worse in past few days. Dr. Hager is consulted. He reports orthopnea. He denied fever, no cough. Patient denied chest discomfort, reports intermittent palpitation. No n/v/d. Workup: Temp 102.3 -100.7F. Hb 9.6, Hct 29.6. Na 131, K 5.2, BUN 52, Cr 3.07, Mg 2.2. First troponin 8391, 2nd and 3rd are pending. EKG showdnsr w/ IRBBB w/nonspecific TWI w/ HR 78bpm w/ normal ST segment. BNP 4840. CXR showed mild congesiton w/ patchy b/l LL airspace and small lt pleural effusion. Lactic acid1.2. UA pending. - Elevated troponin. No chest pain NSTEM vs demanded ischemia, type II. Troponin 8391, 8381, 6556. EKG w/ nonspecific TWI w/ normal ST w/ IRBBB. echocardiogram result pending. on Heparin drip On Metoprolol, atorvastatins, ASA and Plavix. - Dyspnea. BNP 4840. Cr 3. - Elevated Cr/CKD. Per nephrology - COPD. - HTN. BP suboptimal Continue metoprolol 50mg po bid. Start Imdur 30 mg p.o. daily Hold Norvasc (edema in b/l LE) and HCTZ (elevated Cr._ On Hydralazine prn. Will plan LHC once Cr improving and clear w/ community relations officer. MDM per Dr. Hager. Yasmine Hager 08/25/22 1737:Attestations Physician AttestationAgree w/findings plan:I have seen and examined the pt, I Agree with the findings and plan as documented by Duong Quiñones. at 1534 at 6130 RPT #:[id number] OF REPORTPRProgress [id number]:38:00E.[id number] for patient [id number]:34:30 2022-08-23 [id number] HCAMN 07:43:00 [address] [id number] PATIENT NAME: RICKI MCCLAIN ADMIT DATE: 08/21/22ACCOUNT NO: [id number] DISCHARGE DATE: 08/26/22MEDICAL RECORD NO: [id number] ROOM NO: E.IC02 REPORT TYPE: CONSULTATION REPORT DATE OF : [birth year] AGE: 72 SEX: M ADMITTING PHYSICIAN:Caren Lopes MD ATTENDING PHYSICIAN:Caren Lopes MD CONSULTATION DATE: HISTORY OF PRESENT ILLNESS: This is a [facility] admission for this 72-year-old man with the history of hypertension, diabetes, chronic kidney disease stage IV, COPD on home oxygen use, who is currently admitted for shortness of breath. I am asked by Dr. Caren Lopes to evaluate the patient for renal abnormalities. The patient is a poor historian. He indicates he has had hypertension and diabetes for approximately 20 years. The patient currently says diabetes is well controlled and he does not use any insulin products. The patient is followed in [place], [place] by Dr. Garsia for his nephrology care. The patient's description of his care indicates that he is likely stage IV chronic kidney disease. The patient was on his way to get oxygen. The patient was admitted through the emergency room with a troponin greater etdt0919. He was seen by Cardiology. A cardiac catheterization is planned for later today. PAST MEDICAL HISTORY:1. Hypertensive nephrosclerosis.2. Diabetes mellitus type 2 with diabetic nephropathy.3. Chronic kidney disease. Probably stage IV. Baseline serum creatinine likelyaround 3.0.4. Chronic obstructive pulmonary disease. On home oxygen. CURRENT MEDICATIONS: Reviewed. ALLERGIES: IODINE AND CODEINE. FAMILY HISTORY: Negative for renal disease. Positive for diabetes and hypertension. SOCIAL HISTORY: Positive tobacco use. REVIEW OF SYSTEMS:GENERAL: No fever. Appetite adequate.EYES: No visual abnormalities.ENT: No auditory abnormalities. No sore throat.ENDOCRINE: Positive diabetes. No thyroid disease.LUNGS: Fair air exchange and upper lobes. Decreased air exchange lower lobes. PATIENT NAME: RICKI MCCLAIN Positive expiratory wheezing. Decreased breath sounds at the bases.CARDIAC: Elevated troponins. Positive [TIME: 03:23].GASTROINTESTINAL: No nausea, vomiting, diarrhea.GENITOURINARY: As above. No dysuria, hematuria. Positive for urgency and frequency.MUSCULOSKELETAL: No inflammatory joint abnormalities.SKIN: No rashes.PSYCHIATRIC: No hallucinations.NEUROLOGIC: No focal complaints. PHYSICAL EXAMINATION:VITAL SIGNS: Blood pressure 149/81, pulse 55, temperature 98.3, respiratory rate 18.GENERAL: Awake, alert, conversive with shortness of breath.HEENT: Eyes nonicteric, noninjected. Pupils equally reactive. Oropharynx, moist mucous membranes.NECK: No JVD. No lymphadenopathy.LUNGS Good inspiratory effort. Generally clear.CARDIAC: Regular S1, S2. No murmur or rub.ABDOMEN: Bowel sounds present, soft, nontender. No hepatosplenomegaly.EXTREMITIES: Four limbs present. No cyanosis, 1+ edema. Decreased/absent DP and PT pulses.SKIN: No rashes.PSYCHIATRIC: Oriented to person, place, situation.NEUROLOGIC: Sensory grossly intact. LABORATORY AND DIAGNOSTIC DATA: Sodium 133, potassium 4.6, chloride 96, CO2 of 34.3, glucose 160, BUN 49, creatinine 3.0. WBCs 7.4, hemoglobin 9.8, reftjnvfic02.7, platelets 182,000. Troponin 8381. IMPRESSION:1. Non-ST elevation myocardial infarction. Cardiac catheterization planned. The patient is at risk for acute renal failure that may lead to end-stage renal disease. Counseled the patient on this issue. Cardiac catheterization should be pursued. I will attempt to contact the patient's primary community relations officer to receive baseline renal function information.2. Hypertensive nephrosclerosis. Blood pressure reasonably controlled. More aggressive control pending cardiac issues.3. Diabetes mellitus type 2 with diabetic nephropathy. Formally, on insulin. Indicates he has not used insulin in many months, likely secondary to progression of underlying renal disease.4. Chronic kidney disease, stage IV likely. At risk for contrast-induced acuterenal failure with cardiac catheterization. Low volume contrast indicated. Staged PCI procedures as needed.5. Edema. Mild. Lasix dosing. Serum creatinine is expected to rise or improve with a diuretic.6. Hyponatremia, mild, secondary to renal failure.7. Anemia, consistent with renal failure.8. Chronic obstructive pulmonary disease. Chronic oxygen use. RECOMMENDATIONS:1. Renal ultrasound.2. Continue current medications.3. Discussed with Cardiology for cardiac catheterization.4. Attempt to identify primary care community relations officer and discussed chronic care PATIENT NAME: RICKI MCCLAIN with her.5. Blood pressure control.6. PABLO as needed.7. Low-dose diuretics. Dictated By: Selina Bedolla MD Date Dictated: 08/23/2022 07:43:56Date Transcribed: 08/23/2022 11:23:20LEAH/Susannah #: [id number] ID: [id number] by Selina Bedolla MD On 10/19/2022 09:44:33 AM at 0944 PATIENT NAME: RICKI MCCLAIN :23:00E.[id number] for patient yrolOOUJNUEIGUHSAS4817-88-84N48:44:58 2022-08-23 [id number]:29:00 [facility]N 07:29:00 [facility] ([facility])Clinical NoteREPORT#:[id number] REPORT STATUS: SignedDATE:08/23/22 TIME: 728 PATIENT: RICKI MCCLAIN UNIT #: [id number]#: [id number] [facility]DOB: [birth year] AGE: 72 SEX: M ATTEND: Caren Lopes MDADM AUTHOR: Selina Bedolla MD * ALL edits or amendments must be made on the electronic/computer document * Clinical NoteNote:Consult dictated #[id number]. at 0744 RPT #:[id number] OF REPORTCLClinical iaht5491-61-78R01:29:00E.[id number] 026AVAvailable for patient qdzhLNKIYWNZYSZPIC8937-52-06G96:45:03 2022-08-22 [id number]:27:[id number] HCAMN 17:27:00 8 [facility] [address] [place] [address] PATIENT NAME: RICKI MCCLAIN ADMIT DATE: 08/21/22ACCOUNT NO: [id number] DISCHARGE DATE: ROOM NO: [facility] REPORT TYPE: 360 - QUERY RESPONSE DOCUMENT DATE OF : [birth year] AGE: 72 SEX: M ADMITTING PHYSICIAN:Caren Lopes MD ATTENDING PHYSICIAN:Caren Lopes MD Provider Query QUERY TEXT: Stage CKD 360MD Query related questions should be directed to: Chuck Calvillo RN # [phone] Based on your clinical judgment, can you further specify the stage of the chronic kidney disease located in the Cardiology Progress Note - Duong Quiñones (NURSE PRACTITIONER) - 08/22/2022? Pertinent lab findings are listed in the Clinical Indicators section of this document. Stages of Kidney Damage according to the National Kid[employer] are defined as follows:-- Stage 1 Kidney damage with normal kidney function (GFR > 90)-- Stage 2 Kidney damage with mildly decreased kidney function (GFR 60-89)-- Stage 3a Kidney damage with mildly to moderately decreased kidney function (GFR 45-59)-- Stage 3b Kidney damage with moderately to severely decreased kidney function (GFR 30-44)-- Stage 4 Kidney damage with severely decreased kidney function (GFR 15-29)-- Stage 5 Kidney failure (GFR <15 or on dialysis)-- End Stage Renal Disease (GFR <15 or on dialysis or transplant) The patient's Clinical Indicators include:* BUN - 52 / Creat - 3.07 / GFR - 21 - Lab - 08/21/2022 * "Elevated Cr/CKD" - Cardiology Progress Note - Duong Quiñones (NURSE PRACTITIONER) - 08/22/2022 * BUN - 49 / Creat - 3 / GFR - 22 - Lab - 08/22/2022Options provided:-- Stage 1-- Stage 2-- Stage 3a-- Stage 3b-- Stage 3-- Stage 4-- Stage 5-- End Stage-- Other - I will add my own diagnosis-- Dismiss - Not applicable / Not valid-- Dismiss - Clinically unable to determine / Unknown-- Assign to another provider QUERY RESPONSE: The patient has stage 3a chronic kidney disease. Query created by: Chuck Calvillo on 08/22/2022 7:28 AM at 1727 PATIENT NAME: RICKI MCCLAIN noteE.[id number] for patient lxokYQAMVYSOQLCCRP4587-56-76U87:28:15 2022-08-22 [id number]:07:00 [facility] HCAMN 11:07:00 [facility] ([facility])Hospitalist History PhysicalREPORT#:[id number] REPORT STATUS: SignedDATE:08/22/22 TIME: 1107 PATIENT: RICKI MCCLAIN UNIT #: [id number]#: [id number] ROOM[facility]BED: [facility]DOB: [birth year] AGE: 72 SEX: M ATTEND: Caren Lopes MDADM AUTHOR: Caren Lopes MD * ALL edits or amendments must be made on the electronic/computer document * History of Present Illness HPIChief complaint:o2 HPI:72yo male with hx of chronci respiratory failure, HTN, CHF was unable to get his10L concentrator replaced to he came to the hospital. He was weak, it was hot and he didn't feel well. He denies chest pain, feer, chills, cough. He wants to know how long it will take us to [facility] so he can go home.Says he is feeling better overall. In the ER Workup: Temp 102.3 -100.7F. Hb 9.6, Hct 29.6. Na 131, K 5.2, BUN 52,Cr 3.07, Mg 2.2. First troponin 8391, 2nd and 3rd are pending. EKG showdnsr w/IRBBB w/ nonspecific TWI w/ HR 78bpm w/ normal ST segment. BNP 4840. CXR showed mild congesiton w/ patchy b/l LL airspace and small lt pleural effusion. Lactic acid 1.2. UA pending. PMHCHFHTNchronic respiratory failureCOPDDM II PSH reviewed Famhxnon contributoryno early cad ROS Constitutional:Denies: chills, fatigue, fever. Skin:swelling. Denies: diaphoresis, rash. Allergy/Immun:Denies: itching, rhinorrhea. Eyes:Denies: redness, discharge, visual loss/blurred. ENT:Denies: hearing loss, mouth pain, nasal congestion. Respiratory:Reports: LYNN (dyspnea on exertion). Denies: parox nocturnal dyspnea, pleurisy, pneumonia, productive cough (sputum). Cardiovascular:Reports: dyspnea on exertion, edema, orthopnea, palpitations. Denies: chest pain, parox noctural dyspnea. GI:Denies: diarrhea, dysphagia, nausea, vomiting. :Denies: hematuria, urinary retention. Musculoskeletal:extremity swelling. Denies: lumbar pain. Heme:Denies: bleeding, bruising. Endocrine:Denies: cold intolerance, heat intolerance. Neuro:Denies: dizziness, slurred speech. Psych:Denies: change in mental status. Physical ExamGeneral appearance: alert, awake, oriented, no acute distress, conversational, mental status normal, no respiratory distressHead/Eyes: atraumatic, PERRLENT: moist mucosal membranesNeck: full range of motion, no JVDCardiovascular: CV assessment: regular rate and rhythmRespiratory: clear to auscultation, no distressAbdomen: soft, non-tender, normal bowel sounds, no distention, no guardingGenitourinary: no flank pain, no urinary catheterUpper extremity: UE assessment: normal temperature, no edemaLower extremity: LE assessment: edema (1+), normal temperatureNeuro/MENTAL RETARDATION NURSE: alert, normal speechPsychiatry: normal affect History Past Medical Surgical HxAdditional medical history:COPDAdditional surgical history:cervical fussion 2015 Family HistoryFamily history:Reports: Heart disease. Social HistoryAlcohol use: Denies EtOH useDrug use: Denies recreational drugsSmoking status for patients 13 years old or older: Former Smoker Medication/Allergy-Vaccine HxAllergies:Coded Allergies:codeine (Intermediate, RASH 07/23/14)iodine (Intermediate, HIVES ALL OVER 07/23/14) OBJECTIVEVS/I O:Vital SignsDate Temp Pulse Resp B/P B/P Mean Pulse Ox UdF404/-08/23 36.5-36.9 53-59 16-18 146-154/71-81 98.0-103.8 95-98 Last Documented: Result Date Time Pulse Ox 98 08/23 0705 O2 Delivery Nasal cannula 08/23 0705 O2 Flow Rate 3 08/23 0705 B/P 149/81 08/23 0345 B/P Mean 103.8 08/23 0345 Temp 36.7 08/23 0345 Pulse 55 08/23 0345 Resp 18 08/23 0345 24 hour I O ending at 0700: 08/23 0700 08/22 1900 Intake Total Output Total 700 Balance -700 Output, Urine 700 Patient 91.3 kg Weight Weight Bed scale Measurement Method Patient Weight and BMI Weight (kg): 91.300 BMI: 29.1 Medications:Active Meds + DC'd Last 24 HrsAcetaminophen (TYLENOL 325MG) 650 MG Q4H PRN PRN PO Albuterol/Ipratropium (IPRATR-ALBUTEROL 0.5-3 MG/3 ML) 3 ML RTQ4H PRN PRN NEB Hydralazine HCl (APRESOLINE) 10 MG Q4H PRN PRN IV Ondansetron HCl (ZOFRAN 2ML) 4 MG Q4H PRN PRN IV Perflutren Protein Type A Microsphe (OPTISON 3ML VIAL) 0 .STK-MED ONE .ROUTE (DC) Aspirin (ASPIRIN 81MG CHEW) 81 MG DAILY PO Aspirin (ASPIRIN) 81 MG DAILY PO (DC) Clopidogrel Bisulfate (PLAVIX) 75 MG DAILY PO Metoprolol Succinate (TOPROL XL) 50 MG Q12HR PO Atorvastatin Calcium (Lipitor) 80 MG 2100 PO Heparin Sodium (HEPARIN 5,000 UNITS/ML INJ) 2,500 UNITS ASDIR PRN IV Heparin Sodium (HEPARIN 5,000 UNITS/ML INJ) 1,000 UNITS ASDIR PRN IV Heparin Sodium/Dextrose (HEPARIN 25,000 UNITS/D5W) 500 ML ASDIR IV (CKD) Acetaminophen (TYLENOL 325MG) 650 MG Q4H PRN PRN PO (DC) Albuterol/Ipratropium (IPRATR-ALBUTEROL 0.5-3 MG/3 ML) 3 ML Q4H PRN PRN NEB (DC) Hydralazine HCl (APRESOLINE) 10 MG Q2H PRN PRN IV (DC) Ondansetron HCl (ZOFRAN 2ML) 4 MG Q6H PRN PRN IV (DC) ResultsFindings/Data:Laboratory Tests: 08/22 08/22 08/22 2050 1449 1449 Coagulation INR (0.89 - 1.14) 0.9 PTT (Ligia) (25.86 - 36.07 SECONDS) 41.20 H 55.90 H PT Patient/Control Mix (9.9 - 12.8 SECONDS) 10.1 Diagnosis, Assessment PlanFree Text A P:1. NSTEMIno chest painccards followingechohep gttasastatin further ischemic work up to be determined after echo 2. Acute on Chronic Hypoxemic Respiratory failurecase mgmt consutl for 10L concentrator at homewean o2 as tolerated 3. Acute diastolic chf exacerbation lasix iv monitor creatinine daily due to DIA 4. DIA on ckd nephrology consultneeds cath but patient with ckd at 0734 RPT #:[id number] OF REPORTHPHistory and physical hktjapqkehd5236-12-38K81:07:00E.[id number] for patient vfyyNFZCRGPCRQKFIK4992-21-39O49:35:12 2022-08-22 [id number]:08:00 [facility] HCAMN 07:08:00 [facility] ([facility])Cardiology Progress NoteREPORT#:[id number] REPORT STATUS: SignedDATE:08/22/22 TIME: 07 PATIENT: RICKI MCCLAIN UNIT #: [id number]#: [id number] [address] [birth year] AGE: 72 SEX: M ATTEND: Caren Lopes [facility] AUTHOR: Duong Quiñones PROJECT ADMIN * ALL edits or amendments must be made on the electronic/computer document * Duong Quiñones 08/22/22 0708:SubjectiveChief complaint:DOING olPatient reports:No: chest pain, palpitations, shortness of breath. Nursing reports:No: complaints. Comments:Patient sleeps w/o distress, on 2LN, NAD, awake easy w/ verbal stimulation.He is on heparin drip at 14 units/kg/h.Telemetry shows normal sinus rhythm. Denies chest discomfort Objective GeneralVS/I O:24 hour I O ending at 0700: 08/21 1900 08/22 0700 Intake Total Output Total Balance Patient 90.909 kg kg Weight Weight Estimated Bed scale Measurement Method Vital Signs:Date Time Temp Pulse Resp B/P B/P Pulse O2 O2 Flow FiO2 Mean Ox Delivery Rate08/22 0705 95 Nasal 2 ceescvt04/21 0643 97.9 65 18 156/74 101.3 94/ 0441 97.9 66 17 157/85 109.2 95 Nasal qjavfls86/21 0352 Nasal 3 zzipdad37/20 2350 98.4 64 16 145/74 97.6 95 Nasal xritkut39/20 2030 93 Nasal 3 uzfqily77/20 1909 98.4 71 16 149/76 100.2 92 Nasal wkocwuv60/20 1724 98.3 73 19 141/70 93 9406/20 1625 100.7 73 19 151/69 96 92 Simple 3 mask08/21 1624 Nasal mcmpvma47/20 1623 Nasal 2 mrhsofi01/20 1622 9908/21 1526 102.3 84 20 147/75 99 97 Non 8 rebreather mask PATIENT WEIGHT: Weight (lb): 202Weight (oz): 9.99Weight (kg): 91.909 Medications:Active Meds + DC'd Last 24 HrsAspirin (ASPIRIN) 81 MG DAILY PO Atorvastatin Calcium (Lipitor) 80 MG 2100 PO Metoprolol Succinate (TOPROL XL) 25 MG Q12HR PO Heparin Sodium (HEPARIN 5,000 UNITS/ML INJ) 2,500 UNITS ASDIR PRN IV Heparin Sodium (HEPARIN 5,000 UNITS/ML INJ) 1,000 UNITS ASDIR PRN IV Heparin Sodium/Dextrose (HEPARIN 25,000 UNITS/D5W) 500 ML ASDIR IV (CKD) Acetaminophen (TYLENOL 325MG) 650 MG Q4H PRN PRN PO Albuterol/Ipratropium (IPRATR-ALBUTEROL 0.5-3 MG/3 ML) 3 ML Q4H PRN PRN NEB Aspirin (ASPIRIN) 325 MG ONCE ONE PO (DC) Hydralazine HCl (APRESOLINE) 10 MG Q2H PRN PRN IV Ondansetron HCl (ZOFRAN 2ML) 4 MG Q6H PRN PRN IV Enoxaparin Sodium (LOVENOX) 90.909 MG X1ED STA SUBQ (DC) Albuterol Sulfate (PROVENTIL) 7.5 MG X1ED STA NEB (DC) Magnesium Sulfate (MAGNESIUM SULF 2 GM/SWI 50 ML) 50 ML X1ED STA IV (DC) Azithromycin (ZITHROMAX) 500 MG X1ED STA PO (DC) Ceftriaxone Sodium (cefTRIAXone 1,000 MG VIAL) 1,000 MG X1ED STA IV (DC) Sodium Chloride (SODIUM CHLORIDE 0.9% 10ML) 10 MLAcetaminophen (TYLENOL EXTRA STRENGTH 500MG) 1,000 MG X1ED STA PO (DC) Sodium Chloride (SODIUM CHLORIDE 0.9%) 2,727.27 ML X1ED STA IV (DC) Physical ExamGeneral appearance: alert, awake, oriented, no acute distress, mental status normal, no respiratory distressHead/Eyes: atraumatic, PERRLENT: moist mucosal membranesNeck: full range of motion, no JVDCardiovascular: CV assessment: regular rate and rhythmRespiratory: clear to auscultation, no distressAbdomen: soft, non-tender, normal bowel sounds, no distention, no guardingGenitourinary: no flank pain, no urinary catheterUpper extremity: UE assessment: normal temperature, no edemaLower extremity: LE assessment: edema (1+), normal temperatureNeuro/MENTAL RETARDATION NURSE: alert, normal speechPsychiatry: normal affect ResultsFindings/Data:Laboratory Tests 08/21 08/21 08/21 08/21 08/21 1549 1553 1553 1807 1956Chemistry Sodium (134.0 - 147.0 mmol/l) 131 L Potassium (3.6 - 5.2 mmol/L) 5.2 Chloride (98.0 - 107.0 mmol/l) 96 L Carbon Dioxide (21.0 - 33.0 mmol/l) 35.0 H Anion Gap (0 - 20) 5.2 BUN (7.0 - 18.0 mg/dl) 52 H Creatinine (0.60 - 1.30 mg/dL) 3.07 H Estimated Creat Clear (>30 mL/min) 23 Glomerular Filtr Rate (mL/min) 21 Glucose (70.0 - 110.0 mg/dl) 146 H Lactic Acid (0.4 - 2.0 mmol/L) 1.2 Calcium (8.0 - 10.5 mg/dl) 9.0 Magnesium (1.8 - 2.4 mg/dl) 2.2 Troponin I High Sens (0 - 76 ng/L) 8390 *H 8381 *H 6556 *H B-Natriuretic Peptide (5 - 100 PG/ML) 4840 H LDL Cholesterol (70 - 130 mg/dl) 90 08/22 0540 Chemistry Sodium (134.0 - 147.0 mmol/l) 133 L Potassium (3.6 - 5.2 mmol/L) 4.6 Chloride (98.0 - 107.0 mmol/l) 96 L Carbon Dioxide (21.0 - 33.0 mmol/l) 34.3 H Anion Gap (0 - 20) 7.3 BUN (7.0 - 18.0 mg/dl) 49 H Creatinine (0.60 - 1.30 mg/dL) 3.00 H Estimated Creat Clear (>30 mL/min) 23 Glomerular Filtr Rate (mL/min) 22 Glucose (70.0 - 110.0 mg/dl) 160 H Calcium (8.0 - 10.5 mg/dl) 8.6 Magnesium (1.8 - 2.4 mg/dl) 2.6 H Laboratory Tests 08/21 08/22 1553 0540 Coagulation INR (0.89 - 1.14) 1.0 0.9 PTT (Ligia) (25.86 - 36.07 SECONDS) 28.00 42.50 H PT Patient/Control Mix (9.9 - 12.8 SECONDS) 10.6 9.9 Laboratory Tests 08/21 08/22 1549 0540 Hematology WBC (4.5 - 11.0 K/mm3) 8.1 7.4 RBC (4.40 - 5.90 M/mm3) 3.09 L 3.18 L Hgb (13.0 - 17.0 gm/dL) 9.6 L 9.8 L Hct (36.0 - 48.0 %) 29.6 L 31.7 L MCV (80.0 - 94.0 UM3) 95.8 H 99.7 H MCH (25.5 - 32.5 UUG) 31.1 30.8 MCHC (29.0 - 35.5 gm/dL) 32.4 30.9 RDW (11.5 - 15.0 %) 15.8 H 15.8 H Plt Count (150 - 400 K/mm3) 191 182 MPV (7.4 - 10.4 fl) 9.8 9.9 Neut % (Auto) (49.0 - 76.0 %) 75.6 85.0 H Lymph % (Auto) (23.0 - 38.0 %) 16.5 L 9.3 L Graham % (Auto) (1.0 - 10.0 %) 6.3 5.1 Eos % (Auto) (1.0 - 5.0 %) 0.5 L 0.0 L Baso % (Auto) (0.0 - 1.0 %) 0.6 0.1 Neut # (Auto) (2.4 - 6.3 K/mm3) 6.1 6.3 Lymph # (Auto) (1.2 - 4.0 K/mm3) 1.3 0.7 L Graham # (Auto) (0.0 - 0.6 K/mm3) 0.5 0.4 Eos # (Auto) (0.0 - 0.7 K/MM3) 0.0 0.0 Baso # (Auto) (0.0 - 0.2 K/mm3) 0.1 0.0 Absolute Nucleated RBC (0.00 - 0.01 X10 3uL) 0.00 0.00 Immature Gran % (0.0 - 0.4 %) 0.5 H 0.5 H Nucleated RBC % (0.0 - 0.1 %) 0.0 0.0 Immature Gran # (0.00 - 0.07 x10 3/uL) 0.04 0.04 Laboratory Tests 08/21 08/21 08/22 1549 1553 0540 Chemistry Magnesium (1.8 - 2.4 mg/dl) 2.2 2.6 H B-Natriuretic Peptide (5 - 100 PG/ML) 4840 H Radiology data:Recent Impressions:RADIOLOGY - XR CHEST 1 V 08/21 1555 Report Impression - Status: SIGNED Entered: 08/21/2022 1600 IMPRESSION:Mild congestion with patchy bilateral lower lobe airspace disease andlikely small left effusion.Impression By: Niecy - Boo Turpin M.D. Results: labs reviewed, vital signs reviewed, vital signs stable, rhythm personally rev'd, current med profile rev'dTelemetry Interpretation:Normal sinus rhythm Diagnosis, Assessment PlanProblem List/A P: 1. Elevated troponin Plan discussed with: patient, nurse Free Text DxA P NotesFree Text DxA P Notes:Mr. Mcclain is a 72 y/o male w/ PMHx: HTN, CKD, COPD (2LNC at home), T2DM, hypothyroidism presents to ED today for sob. Patient experiences shortness of breath w/ exertion intermittent for several months, progressing worse in past few days. Dr. Hager is consulted. He reports orthopnea. He denied fever, no cough. Patient denied chest discomfort, reports intermittent palpitation. No n/v/d. Workup: Temp 102.3 -100.7F. Hb 9.6, Hct 29.6. Na 131, K 5.2, BUN 52, Cr 3.07, Mg 2.2. First troponin 8391, 2nd and 3rd are pending. EKG showdnsr w/ IRBBB w/nonspecific TWI w/ HR 78bpm w/ normal ST segment. BNP 4840. CXR showed mild congesiton w/ patchy b/l LL airspace and small lt pleural effusion. Lactic acid1.2. UA pending. - Elevated troponin. No chest pain NSTEM vs demanded ischemia, type II. Troponin 8391, 8381, 6556. EKG w/ nonspecific TWI w/ normal ST w/ IRBBB. echocardiogram pending. on Heparin drip per cardiology protocol. On Metoprolol, atorvastatins, ASA and Plavix. - Dyspnea. BNP 4840. Cr 3. - Elevated Cr/CKD. Per IM. - COPD. - HTN. BP suboptimal. Increase metoprolol 50mg po bid Hold Norvasc, HCTZ. On BB. On Hydralazine prn. Will plan LHC once Cr improving and clear w/ community relations officer. MDM per Dr. Hager. Yasmine Hager 08/25/22 1737:Attestations Physician AttestationAgree w/findings plan:I have seen and examined the pt, I Agree with the findings and plan as documented by Duong Quiñones. at 0904 at 1737 RPT #:[id number] OF REPORTPRProgress naqu5450-98-73V75:08:00E.[id number] 021AVAvailable for patient uzefZAOQAKUYLRHRJK6766-46-75Z70:05:01 2022-08-21 [id number]:15:00 [facility] 17:15:00 [facility]Card[facility] ConsultationREPORT#:[id number] REPORT STATUS: SignedDATE:08/21/22 TIME: 4857 PATIENT: RICKI MCCLAIN UNIT #: [id number]#: [id number] [address] [birth year] AGE: 72 SEX: M ATTEND: Caren Lopes MDADM AUTHOR: Duong Quiñones PROJECT ADMIN * ALL edits or amendments must be made on the electronic/computer document * Duong Quiñones 08/21/22 0935:History of Present Illness HPIRequesting Clinician: Dr. Harris for consult:elevated tropdyspnea.Chief complaint:Shortness of breathPCP:PCP: No Primary or Family Physician HPI:Mr. Mcclain is a 72 y/o male w/ PMHx: HTN, CKD, COPD (2LNC at home), T2DM, hypothyroidism presents to ED today for sob. Patient experiences shortness of breath w/ exertion intermittent for several months, progressing worse in past few days. Dr. Hager is consulted. He reports orthopnea. He denied fever, no cough. Patient denied chest discomfort, reports intermittent palpitation. No n/v/d. Workup: Temp 102.3 -100.7F. Hb 9.6, Hct 29.6. Na 131, K 5.2, BUN 52, Cr 3.07, Mg 2.2. First troponin 8391, 2nd and 3rd are pending. EKG showdnsr w/ IRBBB w/nonspecific TWI w/ HR 78bpm w/ normal ST segment. BNP 4840. CXR showed mild congesiton w/ patchy b/l LL airspace and small lt pleural effusion. Lactic acid1.2. UA pending. Hx Obtained From Patient History - Adult longitudinalPast medical history:Reports: COPD, Diabetes mellitus, Kidney disease/stones, Thyroid disorder. Additional medical history:COPDPast surgical history:Reports: Knee procedure (Left replacement). Additional surgical history:cervical fussion 2015Family history:Reports: Heart disease. Alcohol use: Denies EtOH useDrug use: Denies recreational drugsSmoking status for patients 13 years old or older: Former SmokerHome medications:Home Medications:amLODIPine (NORVASC) 10 MG PO DAILY [TYLENOL PM] 2 TAB PO BEDTIME PRN PRN PAIN CARISOPRODOL (SOMA) 350 MG PO Q6H PRN PRN MUSCLE PAIN LISINOPRIL/HCTZ (ZESTORETIC 20/12.5 MG) 1 TAB PO BID LEVOTHYROXINE (SYNTHROID) 150 MCG PO DAILY Allergies:Coded Allergies:codeine (Intermediate, RASH 07/23/14)iodine (Intermediate, HIVES ALL OVER 07/23/14) Review of SystemsConstitutional:Denies: chills, fatigue, fever. Skin:swelling. Denies: diaphoresis, rash. Allergy/Immun:Denies: itching, rhinorrhea. Eyes:Denies: redness, discharge, visual loss/blurred. ENT:Denies: hearing loss, mouth pain, nasal congestion. Respiratory:Reports: LYNN (dyspnea on exertion). Denies: parox nocturnal dyspnea, pleurisy, pneumonia, productive cough (sputum). Cardiovascular:Reports: dyspnea on exertion, edema, orthopnea, palpitations. Denies: chest pain, parox noctural dyspnea. GI:Denies: diarrhea, dysphagia, nausea, vomiting. :Denies: hematuria, urinary retention. Musculoskeletal:extremity swelling. Denies: lumbar pain. Heme:Denies: bleeding, bruising. Endocrine:Denies: cold intolerance, heat intolerance. Neuro:Denies: dizziness, slurred speech. Psych:Denies: change in mental status. Objective GeneralVS/I O:Vital Signs: Date Time Temp Pulse Resp B/P B/P Pulse O2 O2 Flow FiO2 Mean Ox Delivery Rate 08/21 1724 98.3 73 19 141/70 93 94 08/21 1625 100.7 73 19 151/69 96 92 Simple 3 mask 08/21 1624 Nasal cannula 08/21 1623 Nasal 2 cannula 08/21 1622 99 08/21 1526 102.3 84 20 147/75 99 97 Non 8 rebreather mask PATIENT WEIGHT: Weight (lb): Weight (oz): Weight (kg): 90.909 Medications:Active Meds + DC'd Last 24 HrsHeparin Sodium (HEPARIN 5,000 UNITS/ML INJ) 3,636.36 UNITS ASDIR PRN IV (UNV) Heparin Sodium (HEPARIN 5,000 UNITS/ML INJ) 909.09 UNITS ASDIR PRN IV (UNV) Heparin Sodium/Dextrose (HEPARIN 25,000 UNITS/D5W) 500 ML ASDIR IV (UNV) Acetaminophen (TYLENOL 325MG) 650 MG Q4H PRN PRN PO Albuterol/Ipratropium (IPRATR-ALBUTEROL 0.5-3 MG/3 ML) 3 ML Q4H PRN PRN NEB Aspirin (ASPIRIN) 325 MG ONCE ONE PO (DC) Hydralazine HCl (APRESOLINE) 10 MG Q2H PRN PRN IV Ondansetron HCl (ZOFRAN 2ML) 4 MG Q6H PRN PRN IV Enoxaparin Sodium (LOVENOX) 90.909 MG X1ED STA SUBQ (DC) Albuterol Sulfate (PROVENTIL) 7.5 MG X1ED STA NEB (DC) Magnesium Sulfate (MAGNESIUM SULF 2 GM/SWI 50 ML) 50 ML X1ED STA IV (DC) Azithromycin (ZITHROMAX) 500 MG X1ED STA PO (DC) Ceftriaxone Sodium (cefTRIAXone 1,000 MG VIAL) 1,000 MG X1ED STA IV (DC) Sodium Chloride (SODIUM CHLORIDE 0.9% 10ML) 10 MLAcetaminophen (TYLENOL EXTRA STRENGTH 500MG) 1,000 MG X1ED STA PO (DC) Sodium Chloride (SODIUM CHLORIDE 0.9%) 2,727.27 ML X1ED STA IV (DC) Physical ExamGeneral appearance: alert, awake, oriented, no acute distress, conversational, mental status normal, no respiratory distressHead/Eyes: atraumatic, PERRLENT: moist mucosal membranesNeck: full range of motion, no JVDCardiovascular: CV assessment: regular rate and rhythmRespiratory: clear to auscultation, no distressAbdomen: soft, non-tender, normal bowel sounds, no distention, no guardingGenitourinary: no flank pain, no urinary catheterUpper extremity: UE assessment: normal temperature, no edemaLower extremity: LE assessment: edema (1+), normal temperatureNeuro/MENTAL RETARDATION NURSE: alert, normal speechPsychiatry: normal affect ResultsFindings/Data:Laboratory Tests 08/21 08/21 08/21 1549 1553 1553 Chemistry Sodium (134.0 - 147.0 mmol/l) 131 L Potassium (3.6 - 5.2 mmol/L) 5.2 Chloride (98.0 - 107.0 mmol/l) 96 L Carbon Dioxide (21.0 - 33.0 mmol/l) 35.0 H Anion Gap (0 - 20) 5.2 BUN (7.0 - 18.0 mg/dl) 52 H Creatinine (0.60 - 1.30 mg/dL) 3.07 H Estimated Creat Clear (>30 mL/min) 23 Glomerular Filtr Rate (mL/min) 21 Glucose (70.0 - 110.0 mg/dl) 146 H Lactic Acid (0.4 - 2.0 mmol/L) 1.2 Calcium (8.0 - 10.5 mg/dl) 9.0 Magnesium (1.8 - 2.4 mg/dl) 2.2 Troponin I High Sens (0 - 76 ng/L) 8390 *H B-Natriuretic Peptide (5 - 100 PG/ML) 4840 H LDL Cholesterol (70 - 130 mg/dl) 90 Laboratory Tests 08/21 1553 Coagulation INR (0.89 - 1.14) 1.0 PTT (Ligia) (25.86 - 36.07 SECONDS) 28.00 PT Patient/Control Mix (9.9 - 12.8 SECONDS) 10.6 Laboratory Tests 08/21 1549 Hematology WBC (4.5 - 11.0 K/mm3) 8.1 RBC (4.40 - 5.90 M/mm3) 3.09 L Hgb (13.0 - 17.0 gm/dL) 9.6 L Hct (36.0 - 48.0 %) 29.6 L MCV (80.0 - 94.0 UM3) 95.8 H MCH (25.5 - 32.5 UUG) 31.1 MCHC (29.0 - 35.5 gm/dL) 32.4 RDW (11.5 - 15.0 %) 15.8 H Plt Count (150 - 400 K/mm3) 191 MPV (7.4 - 10.4 fl) 9.8 Neut % (Auto) (49.0 - 76.0 %) 75.6 Lymph % (Auto) (23.0 - 38.0 %) 16.5 L Graham % (Auto) (1.0 - 10.0 %) 6.3 Eos % (Auto) (1.0 - 5.0 %) 0.5 L Baso % (Auto) (0.0 - 1.0 %) 0.6 Neut # (Auto) (2.4 - 6.3 K/mm3) 6.1 Lymph # (Auto) (1.2 - 4.0 K/mm3) 1.3 Graham # (Auto) (0.0 - 0.6 K/mm3) 0.5 Eos # (Auto) (0.0 - 0.7 K/MM3) 0.0 Baso # (Auto) (0.0 - 0.2 K/mm3) 0.1 Absolute Nucleated RBC (0.00 - 0.01 X10 3uL) 0.00 Immature Gran % (0.0 - 0.4 %) 0.5 H Nucleated RBC % (0.0 - 0.1 %) 0.0 Immature Gran # (0.00 - 0.07 x10 3/uL) 0.04 Laboratory Tests 08/21 08/21 1549 1553 Chemistry Magnesium (1.8 - 2.4 mg/dl) 2.2 B-Natriuretic Peptide (5 - 100 PG/ML) 4840 H Radiology Data:Recent Impressions:RADIOLOGY - XR CHEST 1 V 08/21 1555 Report Impression - Status: SIGNED Entered: 08/21/2022 1600 IMPRESSION:Mild congestion with patchy bilateral lower lobe airspace disease andlikely small left effusion.Impression By: Niecy - Boo Turpin M.D. Results: labs reviewed, vital signs reviewed, vital signs stable, EKG personallyreviewed, rhythm personally rev'd, current med profile rev'dEKG Interpretation: normal sinus rhythm (TWI )Telemetry Interpretation:nsr Diagnosis, Assessment PlanProblem List/A P: 1. Elevated troponin Plan discussed with: patient, nurse Free Text DxA P NotesFree Text DxA P Notes:Mr. Mcclain is a 72 y/o male w/ PMHx: HTN, CKD, COPD (2LNC at home), T2DM, hypothyroidism presents to ED today for sob. Patient experiences shortness of breath w/ exertion intermittent for several months, progressing worse in past few days. Dr. Hager is consulted. He reports orthopnea. He denied fever, no cough. Patient denied chest discomfort, reports intermittent palpitation. No n/v/d. Workup: Temp 102.3 -100.7F. Hb 9.6, Hct 29.6. Na 131, K 5.2, BUN 52, Cr 3.07, Mg 2.2. First troponin 8391, 2nd and 3rd are pending. EKG showdnsr w/ IRBBB w/nonspecific TWI w/ HR 78bpm w/ normal ST segment. BNP 4840. CXR showed mild congesiton w/ patchy b/l LL airspace and small lt pleural effusion. Lactic acid1.2. UA pending. - Elevated troponin NSTEM vs demanded ischemia, type II. First troponin 8391. Monitor series of troponin. EKG w/ nonspecific TWI w/ normal ST w/ IRBBB. Will do echocardiogram. start patient on Heparin drip per cardiology protocol. start Metoprolol 25mg po bid. ASA 81 mg po daily. Atorvastatin 80mg po daily. - Dyspnea. BNP 4840. Cr 3. - Elevated Cr/CKD. Per IM. - COPD. - HTN. BP controlled. Hold Norvasc, HCTZ. On BB. On Hydralazine prn. Further testing will depend on the echocardiogram result and series of troponin. Discussed plan of care w/ pt. MDM per Dr. Hager. Thank you for the consult. Yasmine Hager 08/25/22 1737:Attestations Physician AttestationAgree w/findings plan:I have seen and examined the pt, I Agree with the findings and plan as documented by Duong Quiñones. at 1801 at 1737 RPT #:[id number] OF [id number]:15 :00E.[id number] for patient [id number]:01:51 2022-08-21 [id number]:34:00 [facility] HCAMN 15:34:00 [facility] ([facility])EMERGENCY PROVIDER REPORTREPORT#:[id number] REPORT STATUS: SignedDATE:08/21/22 TIME: 1534 PATIENT: RICKI MCCLAIN UNIT #: [id number]#: [id number] ROOM/BED:AGE: 72 SEX: M PCP PHYS: No Primary or Family PhysicianSERVICE AUTHOR: Sara Santacruz DO * ALL edits or amendments must be made on the electronic/computer document * HPI-Dyspnea/Wheezing Free Text HPI NotesFree Text HPI [id number] male complaining of shortness of breath, for the past few days, gradual, sometimes worse with exertion, progressively worsening. REVIEW OF SYSTEMSROS STATEMENTS *All systems reviewed negative except as marked Constitutional: No fever, no chillsCardiovascular: no chest pain or discomfort, no palpitationsRespiratory: (+) [id number], no coughGI: No nausea, no vomiting, no diarrhea, no constipation, no abdominal painNeurologic: No weakness or numbness. GeneralInitial Greet Date/Time 08/21/22 1527 PresentationChief Complaint Shortness of breath Past Medical History - AdultStated Complaint SOBAllergiesCoded Allergies:codeine (Intermediate, RASH 07/23/14)iodine (Intermediate, HIVES ALL OVER 07/23/14) Home MedicationsReported MedicationsamLODIPine (NORVASC) 10 MG PO DAILY [TYLENOL PM] 2 TAB PO BEDTIME PRN PRN PAIN CARISOPRODOL (SOMA) 350 MG PO Q6H PRN PRN MUSCLE PAIN LISINOPRIL/HCTZ (ZESTORETIC 20/12.5 MG) 1 TAB PO BID LEVOTHYROXINE (SYNTHROID) 150 MCG PO DAILY Pt reports no significant: Past surgical history, Family history, Social historyAdditional Medical HistoryCOPD, CHFSmoking status for patients 13 years old or older: Former Smoker Physical Exam Vital SignsVital SignsFirst Documented: Result Date Time Pulse Ox 97 08/21 1526 B/P 147/75 08/21 1526 B/P Mean 99 08/21 1526 O2 Delivery Non rebreather mask 08/21 1526 O2 Flow Rate 8 08/21 1526 Temp 102.3 08/21 1526 Pulse 84 08/21 1526 Resp 20 08/21 1526 Last Documented: Result Date Time Pulse Ox 92 08/21 1625 B/P 151/69 08/21 1625 B/P Mean 96 08/21 1625 O2 Delivery Simple mask 08/21 1625 O2 Flow Rate 3 08/21 1625 Temp 100.7 08/21 1625 Pulse 73 08/21 1625 Resp 19 08/21 1625 Review of Vital Signs Reviewed Free Text PE NotesFree Text PE NotesGeneral: Awake, Alert, some respiratory distress, febrileHead/Scalp: NCATEyes: Atraumatic, PERRL, EOMI, No periorbital swelling, Conjunctiva NLENT: Atraumatic, Airway patent, Mucous membranes moist, No facial swellingNeck: Atraumatic, Supple, No swelling, No tracheal deviationCardiovascular: Regular rate, Peripheral circulation normalRespiratory/Chest: Bilateral breath sounds, basilar ralesAbdomen: Soft, Nontender, NondistendedUpper Extremity: Atraumatic, Inspection NL, No swelling, Non-tender, No deformityLower Ext/Pelvis: Atraumatic, Inspection NL, Non-tender, No deformity, Neurologic: No motor deficits, No sensory deficits Interpretation Diagnostics Lab Results InterpretationResultsLaboratory Tests 08/21/22 1553:[Embedded Image Not Available] 08/21/22 1549:[Embedded Image Not Available]Laboratory Tests: 08/21 08/21 08/21 1553 1553 1549 Chemistry Sodium (134.0 - 147.0 mmol/l) 131 L Potassium (3.6 - 5.2 mmol/L) 5.2 Chloride (98.0 - 107.0 mmol/l) 96 L Carbon Dioxide (21.0 - 33.0 mmol/l) 35.0 H Anion Gap (0 - 20) 5.2 BUN (7.0 - 18.0 mg/dl) 52 H Creatinine (0.60 - 1.30 mg/dL) 3.07 H Estimated Creat Clear (>30 mL/min) 23 Glomerular Filtr Rate (mL/min) 21 Glucose (70.0 - 110.0 mg/dl) 146 H Lactic Acid (0.4 - 2.0 mmol/L) 1.2 Calcium (8.0 - 10.5 mg/dl) 9.0 Magnesium (1.8 - 2.4 mg/dl) 2.2 Troponin I High Sens (0 - 76 ng/L) 8390 *H B-Natriuretic Peptide (5 - 100 PG/ML) 4840 H Coagulation INR (0.89 - 1.14) 1.0 PTT (Ligia) (25.86 - 36.07 SECONDS) 28.00 PT Patient/Control Mix (9.9 - 12.8 SECONDS) 10.6 Hematology WBC (4.5 - 11.0 K/mm3) 8.1 RBC (4.40 - 5.90 M/mm3) 3.09 L Hgb (13.0 - 17.0 gm/dL) 9.6 L Hct (36.0 - 48.0 %) 29.6 L MCV (80.0 - 94.0 UM3) 95.8 H MCH (25.5 - 32.5 UUG) 31.1 MCHC (29.0 - 35.5 gm/dL) 32.4 RDW (11.5 - 15.0 %) 15.8 H Plt Count (150 - 400 K/mm3) 191 MPV (7.4 - 10.4 fl) 9.8 Neut % (Auto) (49.0 - 76.0 %) 75.6 Lymph % (Auto) (23.0 - 38.0 %) 16.5 L Graham % (Auto) (1.0 - 10.0 %) 6.3 Eos % (Auto) (1.0 - 5.0 %) 0.5 L Baso % (Auto) (0.0 - 1.0 %) 0.6 Neut # (Auto) (2.4 - 6.3 K/mm3) 6.1 Lymph # (Auto) (1.2 - 4.0 K/mm3) 1.3 Graham # (Auto) (0.0 - 0.6 K/mm3) 0.5 Eos # (Auto) (0.0 - 0.7 K/MM3) 0.0 Baso # (Auto) (0.0 - 0.2 K/mm3) 0.1 Absolute Nucleated RBC (0.00 - 0.01 X10 3uL) 0.00 Immature Gran % (0.0 - 0.4 %) 0.5 H Nucleated RBC % (0.0 - 0.1 %) 0.0 Immature Gran # (0.00 - 0.07 x10 3/uL) 0.04 Microbiology: Date/Time Procedure - Status Source Growth 08/21 1621 Influenza Virus Type B Antigen - ORD NASOPHARG 08/21 1621 Influenza Virus Type A Antigen - ORD NASOPHARG 08/21 1549 Blood Culture - RECD BLOOD 08/21 1549 Blood Culture - RECD BLOOD Recent Impressions:RADIOLOGY - XR CHEST 1 V 08/21 1555 Report Impression - Status: SIGNED Entered: 08/21/2022 1600 IMPRESSION:Mild congestion with patchy bilateral lower lobe airspace disease andlikely small left effusion.Impression By: Niecy Turpin M.D. ECG #1 InterpretationText/Dict [id number]: 78 bpm, NSR, Intervals reviewed, no STEMI, Nonspecific ST changes EKG ordered and interpreted by me Re-Evaluation MDM Free Text MDM NotesFree Text MDM NotesAcute decompensated COPD exacerbation: Stat orders requested for nebulizer treatments, IV magnesium, IV steroids, oxygen administration SIRS criteria positive. Sepsis protocol initiated urgently. IV antibiotics ordered urgently to treat for presumed sepsis. Reduced fluid bolus ordered due to concern for congestive heart failure and fluid overload. The patient's comorbidities were considered in today's management Independent interpretation of studies completed by me Other diagnostic tests and medications were considered but not ordered based on clinical gestalt Shared decision making was used involving the patient and myself 1638Patient stable at this time. Examination stable. Case in entirety discussed withadmitting physician. Patient to be admitted for further evaluation and management. Troponin noted to be 8400. Cardiology consulted urgently. Anticoagulation ordered ED CourseMedication(s) OrderedMedication(s) Ordered:Anti-Infective Agents Sig/Vianey Start time Last Medication Dose Route Stop Time Status Admin Azithromycin 500 MG X1ED STA 08/21 1541 DC 08/21 PO 08/21 1542 1603 Ceftriaxone Sodium 1,000 MG X1ED STA 08/21 1541 DC 08/21 Sodium Chloride 10 ML IV 08/21 1543 1605 Autonomic Drugs Sig/Vianey Start time Last Medication Dose Route Stop Time Status Admin Albuterol Sulfate 7.5 MG X1ED STA 08/21 1542 DC 08/21 NEB 08/21 1543 1602 Blood Formation,Coagulation Sig/Vianey Start time Last Medication Dose Route Stop Time Status Admin Enoxaparin Sodium 90.909 MG X1ED STA 08/21 1640 DC SUBQ 08/21 1641 Central Nervous System Agents Sig/Vianey Start time Last Medication Dose Route Stop Time Status Admin Acetaminophen 1,000 MG X1ED STA 08/21 1540 DC 06/20 PO 08/21 1541 1603 Electrolytic, Caloric, And Nkechi Sig/Vianey Start time Last Medication Dose Route Stop Time Status Admin Sodium Chloride 2,727.27 ML X1ED STA 08/21 1540 DC 0620 IV 08/21 1541 1605 Miscellaneous Therapeutic Agen Sig/Vianey Start time Last Medication Dose Route Stop Time Status Admin Magnesium Sulfate 50 ML X1ED STA 08/21 1542 DC 08/21 IV 08/21 1641 1606 Patient Discharge Departure Vital Signs/ConditionVital SignsFirst Documented: Result Date Time Pulse Ox 97 08/21 1526 B/P 147/75 08/21 1526 B/P Mean 99 08/21 1526 O2 Delivery Non rebreather mask 08/21 1526 O2 Flow Rate 8 08/21 1526 Temp 102.3 08/21 1526 Pulse 84 08/21 1526 Resp 20 08/21 1526 Last Documented: Result Date Time Pulse Ox 92 08/21 1625 B/P 151/69 08/21 1625 B/P Mean 96 08/21 1625 O2 Delivery Simple mask 08/21 1625 O2 Flow Rate 3 08/21 1625 Temp 100.7 08/21 1625 Pulse 73 08/21 1625 Resp 19 08/21 1625 All vital signs available at the time of this entry have been reviewed. Clinical ImpressionClinical ImpressionPrimary Impression: SIRS (systemic inflammatory response syndrome)Secondary Impressions: COPD with acute exacerbation, Decompensated heart failure, Elevated troponin Disposition DecisionHospitalize Hosp Physician Name Caren Lopes MD Hosp Physician Hospitalist Request Time 1647 Request Date 08/21/22 )( Accepts Hospitalization Yes )( Reason for HospitalizationDecompensated CHF with significantly elevated troponin requiring urgent cardiology evaluation, anticoagulation, and cardiac monitoring )( Accepted Time 1647 )( Accepted Date 08/21/22 Call Information will see patient Critical CareTime Spent (minutes): 32Services Performed Patient management by me, Time spent at bedside, Reviewing test results, Reviewing imaging, Discussing patient care, Documentation in recordSeparately billable procedures excluded from time. at 1648RPT #:[id number] OF REPORTEDEmergency department [id number]:34:00E.[id number] for patient [id number]:49:17
[2023-02-03 16:12] LABS: Hematocrit 33.8 % (39.6-49.0); Lymphocytes % 11.9 % (15.3-44.8); MCV 97.3 fL (80-100); MPV 8.2 fL (7.6-11.3); Platelets 205 thou/uL (152-406); RBC Red Blood Cell Count 3.47 M/uL (4.33-5.43)
[2023-02-03 16:26] LABS: SARS-CoV-2 Antigen Rapid Res Negative (Negative)
[2023-02-03 16:35] LABS: ALT/SGPT 19 U/L (16-61); AST/SGOT 6 U/L (15-37); Albumin 3.1 g/dL (3.4-5.0); Alkaline Phosphatase 77 U/L (45-117); BUN Blood Urea Nitrogen 74 mg/dL (7-18); Bicarbonate 35 mEq/L (21-32); Bilirubin Total 0.2 mg/dL (0.2-1.0); Glomerular Filtration Rate 21 ml/min (=/>90); Glucose Level 152 mg/dL (74-106); Lipase 32 U/L (13-75); Magnesium 2.5 mg/dL (1.6-2.4); NT PRO-BNP 1253 pg/mL (<125); Potassium 3.8 mEq/L (3.5-5.1); Protein, Total 6.1 g/dL (6.4-8.2); Sodium Level 140 mEq/L (136-145); Troponin High Sensitivity 28.3 pg/mL (<58.9)
[2023-02-03 16:35] LABS: Protime INR 0.86
[2023-02-03 16:37] LABS: Bilirubin Direct < 0.1 mg/dL (0-0.2); Bilirubin Indirect, Calculated ND mg/dL (0.2-0.8)
--- NOTE | 2023-02-03 16:55 | RAD REPORT ---
[facility] DES[facility] 4:36 pm CLINICAL HISTORY: Shortness of breath COMPARISON: December 2022 FINDINGS: Left upper lobe nodule unchanged Mild left basilar lung opacity is unchanged which could represent atelectasis or mild infiltrate Cardiomegaly
--- NOTE | 2023-02-03 17:23 | ER ---
Nurse's Notes [facility] Name: Joe Singh Age: 72 yrs Sex: Male : 1950 Arrival Date: 02/03/2023 Time: 14:45 Bed 15 Private MD: Diagnosis: COPD/ Chronic obstructive pulmonary disease with (acute) exacerbation;Chronic respiratory failure with hypercapnia;Acidosis-Respiratory acidosis;Other acute kidney failure-chronic;Atelectasis;Pneumonia due to other specified bacteria Presentation: 02/03 15:11 Chief complaint: SOB, insomnia, and exacerbation of chronic left neck/shoulder and knee hb pain x 3 days. On 1L home O2. Coronavirus screen: Client presents with at least one sign or symptom that may indicate coronavirus-19. Provider contacted for isolation considerations. Ebola Screen: No symptoms or risks identified at this time. Initial Sepsis Screen: Does the patient meet any 2 criteria? No. Patient's initial sepsis screen is negative. Does the patient have a suspected source of infection? No. Patient's initial sepsis screen is negative. Risk Assessment: Do you want to hurt yourself or someone else? Patient reports no desire to harm self or others. Onset of symptoms was January 31, 2023. 15:11 Method Of Arrival: Wheelchair hb 15:11 Acuity: JENNY 3 hb Triage Assessment: 19:05 General: Appears uncomfortable, Behavior is cooperative. Pain: Complains of pain in nw1 "everywhere". Respiratory: Respiratory: Reports shortness of breath at rest on exertion Airway is patent Trachea midline Respiratory effort is labored, Respiratory pattern is symmetrical, Patient placed on BiPAP:. 19:05 Musculoskeletal: Reports. nw1 Historical: - Allergies: 15:13 No Known Allergies; hb - PMHx: 15:13 Atrial fibrillation; Congestive heart failure; neuropathy; Chronic obstructive lung hb disease; Screenin:15 [facility] ED Fall Risk Assessment (Adult) History of falling in the last 3 months, kc6 including since admission No falls in past 3 months (0 pts) Confusion or Disorientation No (0 pts) Intoxicated or Sedated No (0 pts) Impaired Gait No (0 pts) Mobility Assist Device Used No (0 pt) Altered Elimination No (0 pt) Score/Fall Risk Level 0 - 2 = Low Risk. Abuse screen: Denies threats or abuse. Denies injuries from another. Nutritional screening: No deficits noted. Tuberculosis screening: No symptoms or risk factors identified. Assessment: 15:15 General: Appears in no apparent distress. comfortable, Behavior is calm, cooperative, kc6 appropriate for age, drowsy. Neuro: Level of Consciousness is awake, alert, obeys commands, Oriented to person, place, time, situation, Appropriate for age. Cardiovascular: Denies chest pain, Heart tones S1 S2 present Capillary refill < 3 seconds Rhythm is sinus rhythm. Respiratory: Reports shortness of breath on exertion Airway is patent Trachea midline Respiratory effort is even, unlabored, Respiratory pattern is regular, symmetrical, Breath sounds are clear bilaterally. GI: No signs and/or symptoms were reported involving the gastrointestinal system. : No signs and/or symptoms were reported regarding the genitourinary system. EENT: No signs and/or symptoms were reported regarding the EENT system. Derm: No signs and/or symptoms reported regarding the dermatologic system. Skin is intact, is healthy with good turgor, Skin is pink, warm \\T\\ dry. Musculoskeletal: No signs and/or symptoms reported regarding the musculoskeletal system. Circulation, motion, and sensation intact. Capillary refill < 3 seconds, Range of motion: intact in all extremities. 16:15 Reassessment: Patient appears in no apparent distress at this time. No changes from kc6 previously documented assessment. Patient and/or family updated on plan of care and expected duration. Pain level reassessed. Patient is alert, oriented x 3, equal unlabored respirations, skin warm/dry/pink. 17:15 Reassessment: Patient appears in no apparent distress at this time. No changes from kc6 previously documented assessment. Patient and/or family updated on plan of care and expected duration. Pain level reassessed. Patient is alert, oriented x 3, equal unlabored respirations, skin warm/dry/pink. 18:15 Reassessment: Patient appears in no apparent distress at this time. No changes from kc6 previously documented assessment. Patient and/or family updated on plan of care and expected duration. Pain level reassessed. Patient is alert, oriented x 3, equal unlabored respirations, skin warm/dry/pink. 18:46 Reassessment: pt appears to be 87% on the bipap. RT at bedside obtaining second ABG, kc6 CO2 increased from [address] Zelaya and Dr. Jernigan notified. bipap settings increased with RT still at bedside. pt boosted up and repositioned in the bed. 19:00 Reassessment: pt is awake, A\\T\\O x4. SPO2 99% on bipap. RT at bedside obtaining a third kc6 ABG. CO2 decreased from [address] Zelaya notified. 19:03 Reassessment: REPORT RECEIVED. INTRODUCTIONS MADE. PT NOTED IN BED AND STATING THAT HE nw1 WOULD LIKE SOMETHING FOR PAIN. NOTIFIED MD JERNIGAN WHO EXPLAINED TO PATIENT THAT DUE TO RESP DISTRESS, PAIN MEDICATION WOULD NOT BE GIVEN AT THIS TIME. PT VERBALIZED UNDERSTANDING. PT PLACED IN GOWN. BIPAP ON AND PATIENT TOLERATING AT THIS TIME. VSS AT THIS TIME. WILL CONTINUE TO MONITOR. CALL LIGHT AND URINAL AT BEDSIDE. 20:30 Reassessment: Ashwin Ye JR brother in law request to be called with any critical nw1 changes. [id number]. Vital Signs: 15:11 BP 154 / 67; Pulse 66; Resp 24; Temp 98.9(TE); Pulse Ox 94% on 1 lpm NC; Weight 86.18 hb kg; Height 6 ft. 0 in. ; Pain 8/10; 16:34 BP 120 / 67; Pulse 63; Resp 30 S; Pulse Ox 98% on 3 lpm NC; kc6 18:46 BP 122 / 60; Pulse 66; Resp 26 S; Pulse Ox 86% on BiPAP; kc6 19:00 BP 126 / 64; Pulse 58; Pulse Ox 100% on BiPAP; nw1 19:30 BP 120 / 64; Pulse 60; Pulse Ox 99% on BiPAP; nw1 20:00 BP 122 / 60; Pulse 52; Pulse Ox 100% on BiPAP; nw1 20:30 BP 98 / 82; Pulse 62; Resp 16 A; Pulse Ox 100% on BiPAP; nw1 21:00 BP 130 / 66; Pulse 79; Resp 20; Pulse Ox 95% ; nw1 15:11 Body Mass Index 25.77 (86.18 kg, 182.88 cm) hb 15:11 Pain Scale: Adult hb ED Course: 14:47 Patient arrived in ED. rg4 15:04 Oliverio Jernigan MD is Attending Physician. jordan 15:12 Olivia Beaver, YOLANDA is Primary Nurse. kc6 15:13 Triage completed. hb 15:15 Patient has correct armband on for positive identification. Bed in low position. Call kc6 light in reach. Side rails up X2. Client placed on continuous cardiac and pulse oximetry monitoring. NIBP monitoring applied. igniter capper on. 15:15 Arm band placed on. kc6 16:00 Inserted saline lock: 20 gauge in right forearm, using aseptic technique. Blood kc6 collected. Oxygen administration via nasal cannula \\T\\ 3L/min. 16:38 XRAY Chest (1 view) In Process Unspecified. EDMS 17:20 Benny Alonso is Hospitalizing Provider. [facility] 19:00 Report given to YOLANDA Cota. kc6 19:26 ABG Arterial Blood Gas Sent. nw1 21:31 No provider procedures requiring assistance completed. nw1 21:31 Provided Education on: POC. Door closed. Noise minimized. Warm blanket given. nw1 22:08 Patient admitted, IV remains in place. nw1 Administered Medications: 16:00 Drug: NS 0.9% IV 1000 ml IV at 1 bolus Per protocol; 1000 mL bolus Route: IV; Rate: 1 kc6 bolus; Site: right forearm; 16:30 Follow up: Response: No adverse reaction; IV Status: Completed infusion; IV Intake: kc6 1000ml 16:00 Drug: Rocephin IV 1 grams IV at per protocol once; Given slow IV push per pharmacy kc6 instructions Route: IV; Rate: per protocol; Site: right forearm; 16:30 Follow up: Response: No adverse reaction; IV Status: Completed infusion; IV Intake: 90suco4 17:20 Drug: Ipratropium Inhalation Aerosol 0.5 mg Inhalation once Route: Inhalation; kc6 18:00 Follow up: Response: No adverse reaction kc6 17:21 Drug: Zithromax IVPB 500 mg IVPB once over 1 hrs; mix in 250 mL NS Route: IVPB; Infused kc6 Over: 1 hrs; Site: right forearm; 18:00 Follow up: Response: No adverse reaction; IV Status: Completed infusion; IV Intake: kc6 250ml 17:21 Drug: MethylPrednisoLONE IVP 125 mg IVP once Route: IVP; Site: right forearm; kc6 18:00 Follow up: Response: No adverse reaction kc6 17:21 Drug: Levalbuterol Inhalation 3.75 mg Inhalation once Route: Inhalation; kc6 18:00 Follow up: Response: No adverse reaction [facility] 17:28 Drug: Ativan IVP 0.5 mg IVP once Route: IVP; Site: right forearm; kc6 17:45 Follow up: Response: No adverse reaction; Anxiety decreased; RASS: Drowsy (-1) [facility] 17:56 Drug: Ondansetron IVP 4 mg IVP once; over 2 minutes Route: IVP; Site: right forearm; me1 18:15 Follow up: Response: No adverse reaction [facility] 17:56 Drug: morphine IVP or IV 2 mg IVP once over 4 mins Route: IVP; Infused Over: 4 mins; me1 Site: right forearm; 18:15 Follow up: Response: No adverse reaction; Pain is decreased; RASS: Drowsy (-1) [facility] 18:07 Drug: morphine IVP or IV 2 mg IVP once over 4 mins Route: IVP; Infused Over: 4 mins; me1 Site: right forearm; 18:15 Follow up: Response: No adverse reaction; Pain is unchanged, physician notified; RASS: [facility] Alert and Calm (0) 19:38 Drug: Decadron - Dexamethasone IVP 10 mg IVP once Route: IVP; Site: right antecubital; nw1 19:38 Drug: Levalbuterol Inhalation 2.5 mg Inhalation once Route: Inhalation; nw1 Intake: 16:30 IV: 1000ml; Total: 1000ml. kc6 16:30 IV: 50ml; Total: 1050ml. kc6 18:00 IV: 250ml; Total: 1300ml. [facility] Outcome: 17:22 Decision to Hospitalize by Provider. jordan 22:02 Admitted to ICU room 5, Report called to HERNAN VAUGHN RN nw1 22:02 Condition: stable 22:02 Instructed on the need for admit, 23:26 Patient left the ED. nw1 Signatures: Dispatcher [employer] Oliverio Rodriguez MD MD cha Baxter, Heather, Melonie Shankar RN rg4 Olivia Beaver RN RN kc6 Carol Bermudez RN RN me1 Beata Sr RN RN nw1 Corrections: (The following items were deleted from the chart) 21:52 21:45 Reassessment: Pt assessed. Pt noted on Bipap: S/T IPAP:18 RATE 22 EPAP 6 O2 40% nw1 nw1
--- NOTE | 2023-02-03 17:23 | EDPHYS ---
Physician Documentation [facility] Name: Joe Singh Age: 72 yrs Sex: Male : 1950 Arrival Date: 02/03/2023 Time: 14:45 Bed 15 Private MD: ED Physician Oliverio Arboleda HPI: 02/03 17:11 This 72 yrs old Male presents to ER via Wheelchair with complaints of jordan Breathing Difficulty. 17:11 The patient has shortness of breath at rest, with light activity. Onset: The jordan symptoms/episode began/occurred 3 day(s) ago. Duration: The symptoms are continuous, and are steadily getting worse. The patient's shortness of breath is aggravated by coughing, light activity, supine position. Associated signs and symptoms: Pertinent positives: non-productive cough. Severity of symptoms: At their worst the symptoms were mild moderate today, in the emergency department the symptoms are worse. The patient has experienced similar episodes in the past, multiple times. Historical: - Allergies: 15:13 No Known Allergies; hb - PMHx: 15:13 Atrial fibrillation; Congestive heart failure; neuropathy; Chronic obstructive lung hb disease; ROS: 17:13 Constitutional: Negative for fever, chills, and weight loss, Eyes: Negative for injury, jordan pain, redness, and discharge, ENT: Negative for injury, pain, and discharge, Neck: Negative for injury, pain, and swelling, Cardiovascular: Negative for chest pain, palpitations, and edema, Abdomen/GI: Negative for abdominal pain, nausea, vomiting, diarrhea, and constipation, Back: Negative for injury and pain, : Negative for injury, bleeding, discharge, and swelling, MS/Extremity: Negative for injury and deformity, Skin: Negative for injury, rash, and discoloration, Neuro: Negative for headache, weakness, numbness, tingling, and seizure, Psych: Negative for depression, anxiety, suicide ideation, homicidal ideation, and hallucinations, Allergy/Immunology: Negative for hives, rash, and allergies, Endocrine: Negative for neck swelling, polydipsia, polyuria, polyphagia, and marked weight changes, 17:13 Respiratory: Positive for cough, shortness of breath, at rest. wheezing, expiratory, Exam: 17:13 Constitutional: This is a well developed, well nourished patient who is awake, alert, jordan and in no acute distress. Head/Face: Normocephalic, atraumatic. Eyes: Pupils equal round and reactive to light, extra-ocular motions intact. Lids and lashes normal. Conjunctiva and sclera are non-icteric and not injected. Cornea within normal limits. Periorbital areas with no swelling, redness, or edema. ENT: Nares patent. No nasal discharge, no septal abnormalities noted. Tympanic membranes are normal and external auditory canals are clear. Oropharynx with no redness, swelling, or masses, exudates, or evidence of obstruction, uvula midline. Mucous membranes moist. Neck: Trachea midline, no thyromegaly or masses palpated, and no cervical lymphadenopathy. Supple, full range of motion without nuchal rigidity, or vertebral point tenderness. No Meningismus. Chest/axilla: Normal chest wall appearance and motion. Nontender with no deformity. No lesions are appreciated. Cardiovascular: Regular rate and rhythm with a normal S1 and S2. No gallops, murmurs, or rubs. Normal PMI, no JVD. No pulse deficits. Abdomen/GI: Soft, non-tender, with normal bowel sounds. No distension or tympany. No guarding or rebound. No evidence of tenderness throughout. Back: No spinal tenderness. No costovertebral tenderness. Full range of motion. Male : Normal genitalia with no discharge or lesions. Skin: Warm, dry with normal turgor. Normal color with no rashes, no lesions, and no evidence of cellulitis. MS/ Extremity: Pulses equal, no cyanosis. Neurovascular intact. Full, normal range of motion. Neuro: Awake and alert, GCS 15, oriented to person, place, time, and situation. Cranial nerves II-XII grossly intact. Motor strength 5/5 in all extremities. Sensory grossly intact. Cerebellar exam normal. Normal gait. Psych: Awake, alert, with orientation to person, place and time. Behavior, mood, and affect are within normal limits. 17:13 ECG was reviewed by the Attending Physician. 17:13 Respiratory: mild respiratory distress is noted, Respirations: labored breathing, that is mild, Breath sounds: bronchial sounds, that are mild, are scattered, decreased breath sounds, that are mild, are scattered, rhonchi, that are moderate, are scattered, stridor, is not appreciated, + upper airway congestion. wheezing: expiratory Respiratory rate: 26 17:13 Musculoskeletal/extremity: DVT Exam: No signs of deep vein thrombosis. no pain, no swelling, no tenderness, negative Homans' sign noted on exam, no appreciated bluish discoloration, no erythema, no increased warmth, Vital Signs: 15:11 BP 154 / 67; Pulse 66; Resp 24; Temp 98.9(TE); Pulse Ox 94% on 1 lpm NC; Weight 86.18 hb kg; Height 6 ft. 0 in. ; Pain 8/10; 16:34 BP 120 / 67; Pulse 63; Resp 30 S; Pulse Ox 98% on 3 lpm NC; kc6 18:46 BP 122 / 60; Pulse 66; Resp 26 S; Pulse Ox 86% on BiPAP; kc6 19:00 BP 126 / 64; Pulse 58; Pulse Ox 100% on BiPAP; nw1 19:30 BP 120 / 64; Pulse 60; Pulse Ox 99% on BiPAP; nw1 20:00 BP 122 / 60; Pulse 52; Pulse Ox 100% on BiPAP; nw1 20:30 BP 98 / 82; Pulse 62; Resp 16 A; Pulse Ox 100% on BiPAP; nw1 21:00 BP 130 / 66; Pulse 79; Resp 20; Pulse Ox 95% ; nw1 15:11 Body Mass Index 25.77 (86.18 kg, 182.88 cm) hb 15:11 Pain Scale: Adult hb MDM: 15:04 Patient medically screened. jordan 17:25 Differential diagnosis: Anemia asthma, Bronchitis CHF exacerbation, Chronic Obstructive jordan Pulmonary Disease obstructed airway, tracheal injury, bronchitis, flu, URI, Myocardial Infarction pulmonary edema, Pulmonary Embolism reactive airway disease, Sepsis. Antibiotic administration: Rocephin and Zithromax given. Differential Diagnosis: Obstructed Airway Bronchitis Influenza Upper Respiratory Infection Asthma Exacerbation Viral Syndrome Pneumonia. Immunization status: Pneumococcal vaccine: within last 5 years. Influenza vaccine: within last 5 years. Data reviewed: vital signs, nurses notes, lab test result(s), EKG, radiologic studies, plain films. Consideration of Admission/Observation Patient was admitted/placed on observation. Escalation of care including admission/observation considered. I considered the following discharge prescriptions or medication management in the emergency department Medications were administered in the Emergency Department. See MAR. Independent interpretation of the following test(s) in the Emergency Department EKG: See my EKG interpretation above. Test considered but Not performed: CT: no ct chest. Historians other than the Patient: pt well informed. Care significantly affected by the following chronic conditions: Congestive Heart Failure, Chronic Obstructive Pulmonary Disease, Chronic Kidney Disease, atrial fib,crf. Counseling: I had a detailed discussion with the patient and/or guardian regarding the historical points, exam findings, and any diagnostic results supporting the discharge/admit diagnosis, lab results, radiology results, the need for further work-up and treatment in the hospital. 02/03 15:06 Order name: Basic Metabolic Panel; Complete Time: 16:59 [facility] 02/03 15:06 Order name: CBC with Diff; Complete Time: 16:59 [facility] 02/03 15:06 Order name: LFT's; Complete Time: 16:59 [facility] 02/03 15:06 Order name: Magnesium; Complete Time: 16:59 [facility] 02/03 15:06 Order name: NT PRO-BNP; Complete Time: 16:59 [facility] 02/03 15:06 Order name: PT-INR; Complete Time: 16:59 [facility] 02/03 15:06 Order name: Troponin HS; Complete Time: 16:59 [facility] 02/03 15:06 Order name: Lipase; Complete Time: 16:59 [facility] 02/03 15:06 Order name: Blood Culture Adult (2) [facility] 02/03 15:06 Order name: SARS RAPID; Complete Time: 16:59 [facility] 02/03 15:06 Order name: Flu; Complete Time: 16:59 [facility] 02/03 15:06 Order name: Urine Culture [facility] 02/03 15:06 Order name: Urinalysis w/ reflexes [facility] 02/03 15:30 Order name: Lactate w/ 2H reflex if indic.; Complete Time: 16:59 [facility] 02/03 17:04 Order name: ABG [facility] 02/03 18:28 Order name: ABG Arterial Blood Gas EDVT 02/03 18:41 Order name: ABG Arterial Blood Gas ED[facility] 02/03 18:41 Order name: ABG Arterial Blood Gas [facility] 02/03 18:41 Order name: CBC with Automated Diff [facility] 02/03 18:41 Order name: CBC with Automated Diff ED[facility] 02/03 18:41 Order name: Comprehensive Metabolic Panel ED[facility] 02/03 18:41 Order name: Comprehensive Metabolic Panel EDVT 02/03 18:41 Order name: Lactate w/ 2H reflex if indic. EDMS 02/03 18:41 Order name: Lactate w/ 2H reflex if indic. EDMS 02/03 18:41 Order name: Lipid Profile EDVT 02/03 18:41 Order name: Lipid Profile EDMS 02/03 18:41 Order name: Magnesium EDMS 02/03 18:41 Order name: Magnesium EDMS 02/03 18:41 Order name: NT PRO-BNP EDVT 02/03 18:41 Order name: NT PRO-BNP EDVT 02/03 18:41 Order name: Protime (+INR) EDMS 02/03 18:41 Order name: Protime (+INR) EDMS 02/03 18:41 Order name: T4 Free EDVT 02/03 18:41 Order name: T4 Free [facility] 02/03 18:41 Order name: Thyroid Stimulating Hormone EDVT 02/03 18:41 Order name: Thyroid Stimulating Hormone EDVT 02/03 18:41 Order name: Troponin High Sensitivity [facility] 02/03 18:41 Order name: Troponin High Sensitivity [facility] 02/03 18:41 Order name: Troponin High Sensitivity [facility] 02/03 18:41 Order name: Troponin High Sensitivity [facility] 02/03 18:41 Order name: Procalcitonin ED[facility] 02/03 22:42 Order name: ABG Arterial Blood Gas [facility] 02/03 15:06 Order name: XRAY Chest (1 view); Complete Time: 16:59 [facility] 02/03 17:04 Order name: BIPAP [facility] 02/03 15:06 Order name: EKG; Complete Time: 15:07 [facility] 02/03 18:40 Order name: CONS Physician Consult [facility] 02/03 18:40 Order name: Physical Therapy Consult [facility] 02/03 15:06 Order name: Cardiac monitoring; Complete Time: 15:26 [facility] 02/03 15:06 Order name: EKG - Nurse/Tech; Complete Time: 15:26 [facility] 02/03 15:06 Order name: IV Saline Lock; Complete Time: 16:00 [facility] 02/03 15:06 Order name: Labs collected and sent; Complete Time: 16:00 [facility] 02/03 15:06 Order name: O2 Per Protocol; Complete Time: 15:26 [facility] 02/03 15:06 Order name: O2 Sat Monitoring; Complete Time: 15:26 [facility] 02/03 16:14 Order name: Labs - recollect needed: recollect light blue; Complete Time: 16:27 eb EC:13 Rate is 58 beats/min. Rhythm is regular. QRS [place] is Normal. OR interval is normal. QRS jordan interval is normal. QT interval is normal. No Q waves. T waves are Normal. No ST changes noted. Clinical impression: Sinus bradycardia and No evidence of ischemia. Interpreted by me. Reviewed by me. Administered Medications: 16:00 Drug: NS 0.9% IV 1000 ml IV at 1 bolus Per protocol; 1000 mL bolus Route: IV; Rate: 1 kc6 bolus; Site: right forearm; 16:30 Follow up: Response: No adverse reaction; IV Status: Completed infusion; IV Intake: kc6 1000ml 16:00 Drug: Rocephin IV 1 grams IV at per protocol once; Given slow IV push per pharmacy kc6 instructions Route: IV; Rate: per protocol; Site: right forearm; 16:30 Follow up: Response: No adverse reaction; IV Status: Completed infusion; IV Intake: [id number] 17:20 Drug: Ipratropium Inhalation Aerosol 0.5 mg Inhalation once Route: Inhalation; kc6 18:00 Follow up: Response: No adverse reaction 6 17:21 Drug: Zithromax IVPB 500 mg IVPB once over 1 hrs; mix in 250 mL NS Route: IVPB; Infused kc6 Over: 1 hrs; Site: right forearm; 18:00 Follow up: Response: No adverse reaction; IV Status: Completed infusion; IV Intake: kc6 250ml 17:21 Drug: MethylPrednisoLONE IVP 125 mg IVP once Route: IVP; Site: right forearm; 6 18:00 Follow up: Response: No adverse reaction 6 17:21 Drug: Levalbuterol Inhalation 3.75 mg Inhalation once Route: Inhalation; kc6 18:00 Follow up: Response: No adverse reaction 6 17:28 Drug: Ativan IVP 0.5 mg IVP once Route: IVP; Site: right forearm; kc6 17:45 Follow up: Response: No adverse reaction; Anxiety decreased; RASS: Drowsy (-1) kc6 17:56 Drug: Ondansetron IVP 4 mg IVP once; over 2 minutes Route: IVP; Site: right forearm; [facility] 18:15 Follow up: Response: No adverse reaction 6 17:56 Drug: morphine IVP or IV 2 mg IVP once over 4 mins Route: IVP; Infused Over: 4 mins; me1 Site: right forearm; 18:15 Follow up: Response: No adverse reaction; Pain is decreased; RASS: Drowsy (-1) kc6 18:07 Drug: morphine IVP or IV 2 mg IVP once over 4 mins Route: IVP; Infused Over: 4 mins; me1 Site: right forearm; 18:15 Follow up: Response: No adverse reaction; Pain is unchanged, physician notified; RASS: kc6 Alert and Calm (0) 19:38 Drug: Decadron - Dexamethasone IVP 10 mg IVP once Route: IVP; Site: right antecubital; nw1 19:38 Drug: Levalbuterol Inhalation 2.5 mg Inhalation once Route: Inhalation; nw1 Disposition Summary: 02/03/23 17:22 Hospitalization Ordered Notes: Hospitalization Status: Inpatient Admission jordan Provider: Benny Alonso cha Condition: Fair jordan Problem: new jordan Symptoms: have improved jordan Bed/Room Type: Standard [facility] Location: Intensive Care Unit(02/03/23 19:57) Room Assignment: 5-(02/03/23 19:57) cg Diagnosis - COPD/ Chronic obstructive pulmonary disease with (acute) exacerbation jordan - Chronic respiratory failure with hypercapnia jordan - Acidosis - Respiratory acidosis jordan - Other acute kidney failure - chronic jordan - Atelectasis jordan - Pneumonia due to other specified bacteria jordan Forms: - Medication Reconciliation Form jordan - SBAR form jordan - Leadership Thank You Letter jordan Signatures: Dispatcher [employer] Oliverio Rodriguez MD MD cha Garcia, Cindy RN RN Yolanda Simmons RN RN hb Botello, Elizabeth eb Campbell, Kaitlyn, RN RN kc6 Carol Bermudez RN RN me1 Beata Sr RN RN nw1 Corrections: (The following items were deleted from the chart) :57 17:22 Telemetry/MedSurg (Inpatient) [facility] :57 17:22 [facility]
[2023-02-03] MEDS ORDERED: NA CHLORIDE 0.9% 250 ML ONE (17:25)
[2023-02-03] MEDS ORDERED: LEVALBUTEROL 1.25 MG/3 ML NEB ONE ×2 (17:25→19:42)
[2023-02-03] MEDS ORDERED: METHYLPREDNISOLONE 125 MG INJ ONE (17:25)
[2023-02-03] MEDS ORDERED: AZITHROMYCIN 500 MG INJ IVPB ONE (17:25)
[2023-02-03] MEDS ORDERED: IPRATROPIUM BROM 0.5MG/2.5ML ONE (17:25)
[2023-02-03] MEDS ORDERED: LORazepam 2 MG/ML VIAL ONE (17:36)
[2023-02-03 17:44] LABS: Arterial Blood Carboxyhemoglob 1.2 % (0-1.5); Blood Gas Oxyhemoglobin 91.6 % (94-97); Blood O2 Saturation 94.6 % (92-98.5)
[2023-02-03] MEDS ORDERED: ONDANSETRON 4 MG/2 ML VIAL ONE (18:06)
[2023-02-03] MEDS ORDERED: MORPHINE 4 MG/ML SYR ONE (18:06)
--- NOTE | 2023-02-03 18:27 | P.HP ---
Certification for Inpatient Patient admitted to: Inpatient With expected LOS: >2 Midnights Patient will require the following post-hospital care: Home Health Services Practitioner: I am a practitioner with admitting privileges, knowledge of patient current condition, hospital course, and medical plan of care. Services: Services provided to patient in accordance with Admission requirements found in Title 42 Section 412.3 of the Code of Federal Regulations Patient History Date of Service: 02/03/23 Reason for admission: Hypercapnic respiratory failure History of Present Illness: Patient is a 72-year-old gentleman is not really able to give me much information but he presents with difficulty staying awake. Patient was having chronic pain that he takes a lot of pain medication. In the emergency room, ABGs revealed patient CO2 was 100 and his pH was 7.13. Patient was started on BiPAP therapy. Will repeat ABG stat. Patient will be admitted to the intensive care unit and we will repeat his ABGs. Will talk to family and get more information regarding his history. I was able to talk to patient's brother who lives about 300 miles away. Beatrice ortiz's brother states that he has been in and out of the hospital over the last year. He was actually intubated and transferred to a tertiary care facility where he went to a rehab for short-term. I believe he was at [facility] after his hospital stay, and afterwards patient was advised to go to an assisted living but he refused and went home to live with his son. Patient uses marijuana frequently. Patient will be admitted for hypercapnic respiratory failure. Repeat ABGs pending this morning. Allergies No Known Allergies Allergy (Verified 12/14/22 23:09) Home Medications: Amlodipine Besylate 10 mg PO DAILY 12/16/22 Arformoterol Tartrate 15 mcg IH BID 12/16/22 Budesonide [Pulmicort*] 0.5 mg NEB BID 12/16/22 Bumetanide 0.5 mg PO DAILY 12/16/22 Ergocalciferol (Vitamin D2) [Vitamin D2] 50,000 unit PO EVERY 7TH DAY 12/16/22 Hydrocodone 5/APAP 325 [[place] 5/325*] 5 mg PO Q6HR 12/16/22 Ipratropium/Albuterol Sulfate [Iprat-Albut 0.5-3(2.5) mg/3 ml] 3 ml IH Q6HR 12/16/22 Levothyroxine Sodium [Synthroid] 150 mcg PO DAILY 12/16/22 Magnesium Oxide [Mag 0X*] 400 mg PO DAILY 12/16/22 Oxymetazoline HCl [Afrin] 15 ml IN QOD QID 12/16/22 predniSONE [Prednisone] 20 mg PO BID 12/16/22 Fluticasone/Umeclidin/Vilanter [Trelegy Ellipta 100-62.5-25] 1 each IH DAILY 30 Days #30 aero 12/17/22 acetaZOLAMIDE [Diamox*] 250 mg PO DAILY #30 tab 12/18/22 Aspirin Chewable [Aspirin Chewable*] 81 mg PO DAILY 02/03/23 Atorvastatin Calcium [Lipitor] 80 mg PO BEDTIME 02/03/23 Famotidine [Pepcid*] 20 mg PO DAILY 02/03/23 Finasteride [Proscar*] 5 mg PO DAILY 02/03/23 Furosemide [Lasix] 20 mg PO BIDL 02/03/23 Quetiapine Fumarate [Seroquel] 25 mg PO BID 02/03/23 Sodium Bicarbonate 1,300 mg PO BID 02/03/23 methocarbamoL [Methocarbamol] 1 tab PO Q8HP PRN 02/03/23 - Past Medical/Surgical History Diabetic: Yes -: CHF -: Diabetes Type 2 -: CKD -: Afib -: Obesity hypoventilation syndrome -: appendectomy -: Neck surgery 2013 -: Left knee surgery Psychosocial/ Personal History: Lives at home with family - Family History Father Medical History: Heart disease, Liver disease Notes: Alcoholic Mother Medical History: Heart disease, Hypertension, Diabetes Sister Medical History: Heart disease Notes: OK Brother Medical History: Heart disease Notes: [place], CHF older sister Medical History: Heart disease, Kidney disease - Social History Smoking Status: Former smoker Alcohol use: No CD- Drugs: Yes Caffeine use: Yes Review of Systems 10-point ROS is otherwise unremarkable Physical Examination - Vital Signs Temperature: 98 F (Vitals reviewed) Pulse: 54 Pulse Ox (%): 100 - Physical Exam General: Alert, Oriented x3, Obese HEENT: Atraumatic, Normocephalic Neck: Supple, 2+ carotid pulse no bruit Respiratory: Normal air movement, Diminished Cardiovascular: Regular rate/rhythm, Normal S1 S2, Systolic murmur Gastrointestinal: Normal bowel sounds, Hypoactive, Soft and benign, Non- distended Musculoskeletal: No clubbing, No swelling Integumentary: No rashes, No breakdown, No significant lesion, No tenderness/swelling Neurological: Normal gait, Normal speech, Normal strength at 5/5 x4 extr, Sensation intact, Cranial nerves 3-12 intact - Studies Laboratory Data (last 24 hrs) 02/03/23 02/03/23 02/03/23 15:55 15:55 13:24 WBC 8.20 Hgb 11.0 L Hct 33.8 L Plt Count 205 PT 9.5 INR 0.86 Sodium 140 Potassium 3.8 BUN 74 H Creatinine 3.04 H Glucose 152 H Magnesium 2.5 H Total Bilirubin 0.2 AST 6 L ALT 19 Alkaline Phosphatase 77 Lipase 32 Microbiology Data (last 24 hrs): 02/03/23 15:55 Nasopharnyx Influenza Type A Antigen Screen - Final 02/03/23 15:55 Nasopharnyx Influenza Type B Antigen Screen - Final Assessment & Plan - Problems (Diagnosis) (1) Acute respiratory failure with hypoxia and hypercapnia Current Visit: No Status: Acute (2) CHF exacerbation Current Visit: No Status: Acute Qualifiers: Heart failure type: diastolic Qualified Code(s): I50.33 - Acute on chronic diastolic (congestive) heart failure (3) COPD (chronic obstructive pulmonary disease) Current Visit: No Status: Acute Qualifiers: COPD type: chronic bronchitis (4) Left hip pain Current Visit: No Status: Acute (5) CKD stage 4 secondary to hypertension Current Visit: No Status: Chronic (6) Drug abuse Current Visit: No Status: Chronic (7) HTN (hypertension) Current Visit: No Status: Chronic Qualifiers: Hypertension type: primary hypertension (8) Acute diastolic CHF (congestive heart failure) Current Visit: Yes Status: Acute (9) Type 2 diabetes mellitus Current Visit: Yes Status: Acute - Plan Plan: 1. Patient with hypercapnic and hypoxic respiratory failure; will continue with BiPAP support. Repeat ABGs. Patient's blood gases continue to improve then we will proceed with BiPAP support. Pulmonary consultation. Continue with nebs every 6 and IV steroids. Repeat chest x-ray in the morning. At this time, patient will be admitted to the hospital for further evaluation. 2. Obesity hypoventilation syndrome; atrial fibrillation; continue with medication for rate control. BiPAP support as well. Continue with anticoagulation 3. History of COPD; continue with nebs, steroids, antibiotics 4. Type 2 diabetes; strict blood sugar control 5. Acute CHF, diastolic heart failure; continue with gentle diuresing 6. GI DVT prophylaxis Discharge Plan: Home Plan to discharge in: Greater than 2 days - Advance Directives Does patient have a Living Will: No Does patient have a Durable POA for Healthcare: No - Code Status/Comfort Care Code Status Assessed: Yes Code Status: Full Code Critical Care: Yes Time Spent Managing PTS Care (In Minutes): 50
[2023-02-03] MEDS ORDERED: ALBUTEROL 2.5 MG/3 ML NEB SOL NEB PRN (18:28)
[2023-02-03] MEDS ORDERED: ONDANSETRON 4 MG (ODT) TAB PO PRN (18:28)
[2023-02-03] MEDS ORDERED: ACETAMINOPHEN 500 MG TAB PO PRN (18:28)
[2023-02-03 19:33] LABS: Blood Gas Oxyhemoglobin 92.5 % (94-97); Blood O2 Saturation 95.4 % (92-98.5)
[2023-02-03] MEDS ORDERED: dexAMETHasone 10 MG/ML VIAL ONE (19:42)
[2023-02-03 19:54] VITALS: BMI 30.8
[2023-02-03] MEDS: IPRATROPIUM BROM 0.5MG/2.5ML NEB SCH (20:00)
[2023-02-03] MEDS: ARFORMOTEROL TARTRATE 15 MCG/2 ML VIAL.NEB NEB SCH (20:00)
[2023-02-03 22:39] LABS: Blood Gas Oxyhemoglobin 93.7 % (94-97); Blood O2 Saturation 96.4 % (92-98.5)
[2023-02-04] MEDS: METHYLPREDNISOLONE 125 MG INJ IV SCH ×3 (00:48→12:06)
[2023-02-04] MEDS: HEPARIN 5000 UNIT/ML 1 ML VIAL SQ SCH ×3 (00:50→21:12)
[2023-02-04] MEDS ORDERED: METHYLPREDNISOLONE 125 MG INJ ONE ×3 (01:01→12:18)
[2023-02-04 04:53] LABS: Protime INR 0.89
[2023-02-04 04:54] LABS: Absolute Lymphocytes (CBC) 0.3 K/uL (0.7-4.9); Hematocrit 33.3 % (39.6-49.0); Lymphocytes % 4.5 % (15.3-44.8); MCV 95.9 fL (80-100); MPV 8.7 fL (7.6-11.3); Platelets 180 thou/uL (152-406); RBC Red Blood Cell Count 3.48 M/uL (4.33-5.43)
[2023-02-04 05:14] LABS: Albumin 2.8 g/dL (3.4-5.0); Bilirubin Total 0.4 mg/dL (0.2-1.0); Magnesium 2.3 mg/dL (1.6-2.4); Potassium 4.8 mEq/L (3.5-5.1); Protein, Total 5.6 g/dL (6.4-8.2); Thyroid Stimulating Hormone 0.761 uIU/mL (0.358-3.740); Troponin High Sensitivity 21.1 pg/mL (<58.9)
[2023-02-04 06:21] LABS: Arterial Blood Carboxyhemoglob 1.2 % (0-1.5); Blood Gas Oxyhemoglobin 95.5 % (94-97); Blood O2 Saturation 98.6 % (92-98.5)
[2023-02-04 07:25] LABS: Blood Morphology Comment NOT SEEN (NOT SEEN); Platelet Estimate ADEQ
[2023-02-04] MEDS: ARFORMOTEROL TARTRATE 15 MCG/2 ML VIAL.NEB NEB SCH ×2 (08:40→20:40)
[2023-02-04] MEDS: IPRATROPIUM BROM 0.5MG/2.5ML NEB SCH ×2 (08:40→20:40)
[2023-02-04] MEDS ORDERED: ARFORMOTEROL TARTRATE 15 MCG/2 ML VIAL.NEB ONE ×2 (08:50→20:50)
[2023-02-04] MEDS ORDERED: IPRATROPIUM BROM 0.5MG/2.5ML ONE ×3 (08:50→20:50)
[2023-02-04] MEDS ORDERED: CEFTRIAXONE 1,000 MG in NA CHLORIDE 0.9% 50 ML IVPB SCH (09:00)
[2023-02-04] MEDS: FUROSEMIDE 40 MG/4 ML VIAL IV SCH (09:13)
[2023-02-04] MEDS ORDERED: FUROSEMIDE 40 MG/4 ML VIAL ONE (09:27)
--- NOTE | 2023-02-04 12:09 | P.CNS ---
Date of Consult: 02/04/23 Reason for Consult: For maryam failure Chief Complaint: Hypercapnic respiratory failure History of Present Illness: Patient is 72 years of age with a history of COPD recurrent hospital admissions currently got sick on Saturday started complaining of worsening dyspnea up in the hospital was in hypoxic hypercapnic respiratory failure he has a history of hypoxemia and hypercapnia pliant with his therapy seeing a member service specialist in [place] Allergies No Known Allergies Allergy (Verified 12/14/22 23:09) Home Medications: Amlodipine Besylate 10 mg PO DAILY 12/16/22 Arformoterol Tartrate 15 mcg IH BID 12/16/22 Budesonide [Pulmicort*] 0.5 mg NEB BID 12/16/22 Bumetanide 0.5 mg PO DAILY 12/16/22 Ergocalciferol (Vitamin D2) [Vitamin D2] 50,000 unit PO EVERY 7TH DAY 12/16/22 Hydrocodone 5/APAP 325 [[place] 5/325*] 5 mg PO Q6HR 12/16/22 Ipratropium/Albuterol Sulfate [Iprat-Albut 0.5-3(2.5) mg/3 ml] 3 ml IH Q6HR 12/16/22 Levothyroxine Sodium [Synthroid] 150 mcg PO DAILY 12/16/22 Magnesium Oxide [Mag 0X*] 400 mg PO DAILY 12/16/22 Oxymetazoline HCl [Afrin] 15 ml IN QOD QID 12/16/22 predniSONE [Prednisone] 20 mg PO BID 12/16/22 Fluticasone/Umeclidin/Vilanter [Trelegy Ellipta 100-62.5-25] 1 each IH DAILY 30 Days #30 aero 12/17/22 acetaZOLAMIDE [Diamox*] 250 mg PO DAILY #30 tab 12/18/22 Aspirin Chewable [Aspirin Chewable*] 81 mg PO DAILY 02/03/23 Atorvastatin Calcium [Lipitor] 80 mg PO BEDTIME 02/03/23 Famotidine [Pepcid*] 20 mg PO DAILY 02/03/23 Finasteride [Proscar*] 5 mg PO DAILY 02/03/23 Furosemide [Lasix] 20 mg PO BIDL 02/03/23 Quetiapine Fumarate [Seroquel] 25 mg PO BID 02/03/23 Sodium Bicarbonate 1,300 mg PO BID 02/03/23 methocarbamoL [Methocarbamol] 1 tab PO Q8HP PRN 02/03/23 - Past Medical/Surgical History Diabetic: Yes -: CHF -: Diabetes Type 2 -: CKD -: Afib -: Obesity hypoventilation syndrome -: appendectomy -: Neck surgery 2013 -: Left knee surgery Psychosocial/ Personal History: Lives at home with family - Family History Father Medical History: Heart disease, Liver disease Notes: Alcoholic Mother Medical History: Heart disease, Hypertension, Diabetes Sister Medical History: Heart disease Notes: IA Brother Medical History: Heart disease Notes: [place], CHF older sister Medical History: Heart disease, Kidney disease - Social History Smoking Status: Unknown if ever smoked Alcohol use: No CD- Drugs: Yes Caffeine use: Yes Place of Residence: Home Review of Systems 10-point ROS is otherwise unremarkable General: Weakness Respiratory: Shortness of Breath Physical Examination Temp Pulse Resp BP Pulse Ox 97.9 F 67 14 141/76 H 14 L 02/04/23 08:00 02/04/23 09:00 02/04/23 09:00 02/04/23 09:00 02/04/23 09:00 General: Alert, In no apparent distress, Oriented x3 Respiratory: Clear to auscultation bilaterally, Diminished Cardiovascular: No edema, Normal pulses, Normal S1 S2 Gastrointestinal: Normal bowel sounds, Soft and benign Laboratory Data (last 24 hrs) 02/03/23 02/03/23 02/03/23 15:55 15:55 13:24 WBC 8.20 Hgb 11.0 L Hct 33.8 L Plt Count 205 PT 9.5 INR 0.86 Sodium 140 Potassium 3.8 BUN 74 H Creatinine 3.04 H Glucose 152 H Magnesium 2.5 H Total Bilirubin 0.2 AST 6 L ALT 19 Alkaline Phosphatase 77 Lipase 32 - Problems (1) Chronic respiratory failure Current Visit: Yes Status: Acute Plan: Patient is 72 years of age with a history of severe COPD was initially admitted with hypoxemia and hypercapnia is now back to his baseline patient has hypercapnic respiratory failure with recurrent hospital admissions and will benefit from a noninvasive ventilator new with bronchodilator roving changer to p.o. prednisone DC azithromycin x-ray no acute changes evidence of an infection Qualifiers: Respiratory failure complication: hypoxia and hypercapnia Qualified Code(s): J96.11 - Chronic respiratory failure with hypoxia; J96.12 - Chronic respiratory failure with hypercapnia (2) Chronic renal failure Current Visit: Yes Status: Acute Plan: Patient also has chronic renal failure add Lasix 80 mg IV daily Qualifiers: Chronic kidney disease stage: stage 3 (moderate)
[2023-02-04] MEDS ORDERED: GLUCAGON 1 MG/VIAL IM PRN (14:05)
[2023-02-04] MEDS ORDERED: D50W 25 GM/50 ML SYRINGE IV PRN (14:05)
[2023-02-04] MEDS ORDERED: D10W 125 ML IV PRN (14:13)
--- NOTE | 2023-02-04 15:29 | P.PN ---
Subjective Date of Service: 02/04/23 Chief Complaint: Hypercapnic respiratory failure Patient states he feels much better today. He has been weaned off BiPAP and now tolerating room air. Patient has even been ambulating without oxygen and has good oxygen saturation. He has been tolerating diet. Physical Examination - Vital Signs Temperature: 98.0 F Blood Pressure: 141/73 Pulse: 73 Respirations: 18 Pulse Ox (%): 97 - Studies Laboratory Data (last 24 hrs) 02/03/23 02/03/23 02/03/23 15:55 15:55 13:24 WBC 8.20 Hgb 11.0 L Hct 33.8 L Plt Count 205 PT 9.5 INR 0.86 Sodium 140 Potassium 3.8 BUN 74 H Creatinine 3.04 H Glucose 152 H Magnesium 2.5 H Total Bilirubin 0.2 AST 6 L ALT 19 Alkaline Phosphatase 77 Lipase 32 Microbiology Data (last 24 hrs): 02/03/23 15:55 Nasopharnyx Influenza Type A Antigen Screen - Final 02/03/23 15:55 Nasopharnyx Influenza Type B Antigen Screen - Final Assessment And Plan - Current Problems (Diagnosis) (1) Acute on chronic diastolic heart failure Current Visit: Yes Status: Acute (2) Type 2 diabetes mellitus Current Visit: Yes Status: Acute (3) Acute respiratory failure with hypoxia and hypercapnia Current Visit: No Status: Acute (4) CKD stage 4 secondary to hypertension Current Visit: No Status: Chronic (5) HTN (hypertension) Current Visit: No Status: Chronic Qualifiers: Hypertension type: primary hypertension (6) COPD exacerbation Current Visit: No Status: Resolved - Plan Physical Exam General: Alert, Oriented x3, Obese HEENT: Atraumatic, Normocephalic Neck: Supple, 2+ carotid pulse no bruit Respiratory: Normal air movement, Diminished, mild bibasilar crackles. Cardiovascular: Regular rate/rhythm, Normal S1 S2, Systolic murmur Gastrointestinal: Normal bowel sounds, Hypoactive, Soft and benign, Non- distended Musculoskeletal: No clubbing, bilateral lower extremity pitting edema. Integumentary: No rashes, No breakdown. Neurological: Normal gait, Normal speech, Normal strength at 5/5 x4 extr Plan: Acute respiratory failure with hypoxia/COPD exacerbation/obesity hypoventilation Status post BiPAP Patient is currently tolerating room air. Pulmonary Dr. Carlton input appreciated. IV Solu-Medrol transition to oral prednisone. Oral Cefuroxime. Bronchodilators-Brovana, albuterol, ipratropium. Acute on chronic diastolic heart failure Elevated BNP Chest x-ray does not indicate pulmonary vascular congestion IV lasix Monitor intake and output. Obtain echocardiogram. Diabetes mellitus type 2 Superimposed steroid-induced hyperglycemia. Aggressive insulin sliding scale. Most recent hemoglobin A1c is 5.9. Chronic kidney disease stage IV Monitor renal function while being diuresed. Disposition: Home within 1 to 2 days. DVT prophylaxis: Heparin SQ.
[2023-02-04] MEDS: INSULIN REGULAR (HUMAN) 100 UNIT/ML SQ SCH ×2 (16:56→21:12)
[2023-02-04] MEDS: HYDROCODONE/APAP 5/325 MG TAB PO PRN ×2 (17:07→23:09)
[2023-02-04] MEDS ORDERED: HYDROCODONE/APAP 5/325 MG TAB ONE ×3 (17:14→23:29)
[2023-02-04] MEDS ORDERED: AZITHROMYCIN IV 250 MG in NA CHLORIDE 0.9% 250 ML IVPB SCH (18:00)
[2023-02-04] MEDS: predniSONE 20 MG TAB PO SCH (21:11)
[2023-02-04] MEDS: CEFUROXIME 250 MG TAB PO SCH (21:11)
[2023-02-04] MEDS ORDERED: predniSONE 20 MG TAB ONE (21:21)
[2023-02-04] MEDS ORDERED: INSULIN REGULAR (HUMAN) 100 UNIT/ML ONE (21:21)
[2023-02-04 22:45] LABS: Barbiturates NEGATIVE (NEGATIVE); Benzodiazepines NEGATIVE (NEGATIVE); Cocaine NEGATIVE (NEGATIVE); METHAMPHETAM NEGATIVE (NEGATIVE); Methadone NEGATIVE (NEGATIVE); Opiates NEGATIVE (NEGATIVE); Phencyclidine NEGATIVE (NEGATIVE); THC Cannibis NEGATIVE (NEGATIVE)
[2023-02-05 00:57] LABS: Specific Gravity 1.012 (1.005-1.030); Urine Bacteria None Seen /HPF (<20); Urine Bilirubin NEGATIVE (Negative); Urine Blood Negative (Negative); Urine Clarity Clear (Clear); Urine Color Colorless (Yellow); Urine Glucose 4+ (Over) (Negative); Urine Mucus Slight /HPF (None Seen); Urine Protein 3+ (Negative); Urine RBC None Seen /HPF (None Seen); Urine Urobilinogen Normal (Normal); Urine pH 6.5 (5.0-7.0)
[2023-02-05 05:03] LABS: Albumin 3.2 g/dL (3.4-5.0); Bilirubin Total 0.3 mg/dL (0.2-1.0); Magnesium 2.4 mg/dL (1.6-2.4); Phosphorus 4.5 mg/dL (2.5-4.9); Potassium 4.4 mEq/L (3.5-5.1); Protein, Total 6.3 g/dL (6.4-8.2)
[2023-02-05] MEDS: HYDROCODONE/APAP 5/325 MG TAB PO PRN (05:22)
[2023-02-05] MEDS ORDERED: HYDROCODONE/APAP 5/325 MG TAB ONE (05:35)
--- NOTE | 2023-02-05 07:06 | P.PN ---
Date of Service: 02/05/23 Subjective: ROS: 10 point ROS as noted above, otherwise negative Physical Exam: GEN: Alert, oriented, NAD HEENT: Normal conjunctiva, sclera anicteric CV: Regular rate and rhythm, no edema Pulm: Nonlabored respirations on room air, clear bilaterally ABD: Soft, nontender, nondistended Integumentary: No rashes Neuro: Normal speech, normal affect vitals reviewed Problem List: VTE: Code: Dispo:
[2023-02-05] MEDS: IPRATROPIUM BROM 0.5MG/2.5ML NEB SCH (07:32)
[2023-02-05] MEDS: ARFORMOTEROL TARTRATE 15 MCG/2 ML VIAL.NEB NEB SCH (07:33)
[2023-02-05] MEDS ORDERED: ARFORMOTEROL TARTRATE 15 MCG/2 ML VIAL.NEB ONE (07:40)
[2023-02-05] MEDS ORDERED: IPRATROPIUM BROM 0.5MG/2.5ML ONE (07:41)
[2023-02-05] MEDS: CEFUROXIME 250 MG TAB PO SCH (08:18)
[2023-02-05] MEDS: HEPARIN 5000 UNIT/ML 1 ML VIAL SQ SCH ×2 (08:18→08:30)
[2023-02-05] MEDS: predniSONE 20 MG TAB PO SCH (08:19)
[2023-02-05] MEDS: INSULIN REGULAR (HUMAN) 100 UNIT/ML SQ SCH (08:19)
[2023-02-05] MEDS: FUROSEMIDE 40 MG/4 ML VIAL IV SCH (08:19)
[2023-02-05] MEDS ORDERED: INSULIN REGULAR (HUMAN) 100 UNIT/ML ONE (08:25)
[2023-02-05] MEDS ORDERED: predniSONE 20 MG TAB ONE (08:28)
[2023-02-05] MEDS ORDERED: FUROSEMIDE 100 MG/10 ML VIAL IV ONE (08:29)
--- NOTE | 2023-02-05 08:46 | P.DS ---
Admission Date: 02/03/23 Discharge Date: 02/05/23 Disposition: ROUTINE DISCHARGE Discharge Condition: GOOD Reason for Admission: Hypercapnic respiratory failure Consultations: Pulmonology - Dr. Carlton Brief History of Present Illness: 72yo M, PMH: acute diastolic CHF, DM2, HTN, COPD, CKD4, Drug abuse Patient presents with difficulty staying awake. Patient was having chronic pain that he takes a lot of pain medication. In the emergency room, ABGs revealed patient CO2 was 100 and his pH was 7.13. Patient was started on BiPAP therapy. Will repeat ABG stat. Patient will be admitted to the intensive care unit and we will repeat his ABGs. Will talk to family and get more information regarding his history. Dr. Zelaya able to talk to patient's brother who lives about 300 miles away. Patient's brother states that he has been in and out of the hospital over the last year. He was actually intubated and transferred to a tertiary care facility where he went to a rehab for short-term. I believe he was at [facility] after his hospital stay, and afterwards patient was advised to go to an assisted living but he refused and went home to live with his son. Patient uses marijuana frequently. Patient will be admitted for hypercapnic respiratory failure. Repeat ABGs pending this morning. Hospital Course: Problem List: Acute respiratory failure with hypoxia/COPD exacerbation/obesity hypoventilation Acute on chronic diastolic CHF Diabetes mellitus type 2 Hypertension CKD4 Patient presented with lethargy/fatigue, hypoxia, hypercapnia. CXR with findings consistent with atelectasis vs mild infiltrate. ABGs revealed CO2 of 100, his pH 7.13. Patient was admitted to ICU and started on BiPAP therapy. Pulmonology was consulted. Patient had quick improvement with nebs, steroids, BiPAP, antibiotics. Patient required < 24 hours of BiPAP and deescalated to nasal cannula. repeat ABG with noted improvement. IV steroids / IV antibiotics were transitioned to PO 12/4 and patient continued to show improvement. Patient is to complete 7 more days of cefuroxime on discharge and 4 days of prednisone. Patient was feeling better, breathing more comfortably, afebrile without leukocytosis, and was deemed stable for discharge. He reported having home O2 and NIV at home. Continue home meds as prescribed previously. Medications: Prednisone x4 days cefuroxime x7 days Follow up: PCP 3-5 days Pulmonology 1-2 weeks. Physical Exam: GEN: Alert, oriented, NAD HEENT: Normal conjunctiva, sclera anicteric CV: Regular rate and rhythm, trace b/l pedal edema Pulm: Nonlabored respirations on 2L NC at rest, +mild wheeze ABD: Soft, nontender, nondistended Neuro: Normal speech, normal affect Vital Signs/Physical Exam: Temp Pulse Resp BP Pulse Ox 98 F 69 18 170/71 H 99 02/05/23 04:00 02/05/23 08:19 02/05/23 06:22 02/05/23 08:19 02/05/23 06:22 Laboratory Data at Discharge: WBC 7.70 thou/uL (4.3-10.9) 02/04/23 04:34 Hgb 10.8 g/dL (13.6-17.9) L 02/04/23 04:34 Hct 33.3 % (39.6-49.0) L 02/04/23 04:34 Plt Count 180 thou/uL (152-406) 02/04/23 04:34 PT 9.8 SECONDS (9.5-12.5) 02/04/23 04:34 INR 0.89 02/04/23 04:34 Sodium 137 mEq/L (136-145) 02/05/23 04:23 Potassium 4.4 mEq/L (3.5-5.1) 02/05/23 04:23 BUN 86 mg/dL (7-18) H 02/05/23 04:23 Creatinine 2.88 mg/dL (0.70-1.30) H 02/05/23 04:23 Glucose 166 mg/dL (74-106) H 02/05/23 04:23 Phosphorus 4.5 mg/dL (2.5-4.9) 02/05/23 04:23 Magnesium 2.4 mg/dL (1.6-2.4) 02/05/23 04:23 Total Bilirubin 0.3 mg/dL (0.2-1.0) 02/05/23 04:23 AST 5 U/L (15-37) L 02/05/23 04:23 ALT 17 U/L (16-61) 02/05/23 04:23 Alkaline Phosphatase 60 U/L (45-117) 02/05/23 04:23 Triglycerides 42 mg/dL (<150) 02/04/23 04:34 Cholesterol 193 mg/dL (<200) 02/04/23 04:34 HDL Cholesterol 129 mg/dL (40-60) H 02/04/23 04:34 Cholesterol/HDL Ratio 1.50 02/04/23 04:34 Lipase 32 U/L (13-75) 02/03/23 15:55 Home Medications: Amlodipine Besylate 10 mg PO DAILY 12/16/22 Arformoterol Tartrate 15 mcg IH BID 12/16/22 Budesonide [Pulmicort*] 0.5 mg NEB BID 12/16/22 Bumetanide 0.5 mg PO DAILY 12/16/22 Ergocalciferol (Vitamin D2) [Vitamin D2] 50,000 unit PO EVERY 7TH DAY 12/16/22 Hydrocodone 5/APAP 325 [[place] 5/325*] 5 mg PO Q6HR 12/16/22 Ipratropium/Albuterol Sulfate [Iprat-Albut 0.5-3(2.5) mg/3 ml] 3 ml IH Q6HR 12/16/22 Levothyroxine Sodium [Synthroid] 150 mcg PO DAILY 12/16/22 Magnesium Oxide [Mag 0X*] 400 mg PO DAILY 12/16/22 Oxymetazoline HCl [Afrin] 15 ml IN QOD QID 12/16/22 Fluticasone/Umeclidin/Vilanter [Trelegy Ellipta 100-62.5-25] 1 each IH DAILY 30 Days #30 aero 12/17/22 acetaZOLAMIDE [Diamox*] 250 mg PO DAILY #30 tab 12/18/22 Aspirin Chewable [Aspirin Chewable*] 81 mg PO DAILY 02/03/23 Atorvastatin Calcium [Lipitor] 80 mg PO BEDTIME 02/03/23 Famotidine [Pepcid*] 20 mg PO DAILY 02/03/23 Finasteride [Proscar*] 5 mg PO DAILY 02/03/23 Furosemide [Lasix*] 20 mg PO BIDL 02/03/23 Quetiapine Fumarate [Seroquel] 25 mg PO BID 02/03/23 Sodium Bicarbonate 1,300 mg PO BID 02/03/23 methocarbamoL [Methocarbamol] 1 tab PO Q8HP PRN 02/03/23 Cefuroxime [Ceftin*] 250 mg PO BID 7 Days #14 tab 02/05/23 Hydrocodone/Acetaminophen [Hydrocodon-Acetaminophen 5-325] 1 each PO Q12H PRN #10 tab 02/05/23 predniSONE [Prednisone] 20 mg PO BID 4 Days #8 tab 02/05/23 New Medications: Cefuroxime [Ceftin*] 250 mg PO BID 7 Days #14 tab Hydrocodone/Acetaminophen [Hydrocodon-Acetaminophen 5-325] 1 each PO Q12H PRN #10 tab PRN Reason: Pain Scale 5-7 (Moderate) predniSONE [Prednisone] 20 mg PO BID 4 Days #8 tab Physician Discharge Instructions: Patient presented with lethargy/fatigue, hypoxia, hypercapnia. CXR with findings consistent with atelectasis vs mild infiltrate. ABGs revealed CO2 of 100, his pH 7.13. Patient was admitted to ICU and started on BiPAP therapy. Pulmonology was consulted. Patient had quick improvement with nebs, steroids, BiPAP, antibiotics. Patient required < 24 hours of BiPAP and deescalated to nasal cannula. repeat ABG with noted improvement. IV steroids / IV antibiotics were transitioned to PO 12/ and patient continued to show improvement. Patient is to complete 7 more days of cefuroxime on discharge and 4 days of prednisone. Patient was feeling better, breathing more comfortably, afebrile without leukocytosis, and was deemed stable for discharge. He reported having home O2 and NIV at home. Continue home meds as prescribed previously. Medications: Prednisone x4 days cefuroxime x7 days Follow up: PCP 3-5 days Pulmonology 1-2 weeks. Followup: NONE,NONE [Primary Care Provider] - Time spent managing pt's care (in minutes): 45
[2023-02-05 09:32] VITALS: O2SAT 100
[2023-02-05 09:42] VITALS: BP 148/77; TEMP 97.2
--- NOTE | 2023-02-05 13:35 | EKG ---
Test Date: 2023-02-03 Test Time: 15:23:02 Floor Attendant: REBECA MEASUREMENT RESULTS: Intervals: Rate: 58 KS: 192 QRSD: 100 QT: 388 QTc: 380 Lyon: P: 77 KS: 192 QRS: 92 T: 95 INTERPRETIVE STATEMENTS: Sinus bradycardia Incomplete right bundle branch block Possible Right ventricular hypertrophy Nonspecific T wave abnormality Abnormal ECG Compared to ECG 12/29/2022 14:07:18 Incomplete right bundle-branch block now present T-wave abnormality now present Sinus rhythm no longer present Myocardial infarct finding no longer present Electronically Signed On 02-05-23 13:28:27 [employer]PERVISOR [employer] PROCESS by Khang Guerrier
== END 2023-02-05 10:00 | disposition home or self-care (01) | DRG 291 ==
LOC: ER 14:45 → ERHOLD 18:46 → 3RD-ICU 21:46
PROVIDERS: ADMIT Hospitalist; ATTEND Hospitalist
PROC: 5A09457 Assistance with Respiratory Ventilation, 24-96 Consecutive Hours, Continuous Positive Airway Pressure (ICD-10-PCS; principal; 2023-02-03)
DX: I13.0 Hypertensive heart and chronic kidney disease with heart failure and stage 1 through stage 4 chronic kidney disease, or unspecified chronic kidney disease (principal); I50.33 Acute on chronic diastolic (congestive) heart failure; J96.01 Acute respiratory failure with hypoxia; J96.02 Acute respiratory failure with hypercapnia; E87.29 Other acidosis; J44.1 Chronic obstructive pulmonary disease with (acute) exacerbation; N17.9 Acute kidney failure, unspecified; N18.4 Chronic kidney disease, stage 4 (severe); E66.2 Morbid (severe) obesity with alveolar hypoventilation; E11.22 Type 2 diabetes mellitus with diabetic chronic kidney disease; E11.65 Type 2 diabetes mellitus with hyperglycemia; I48.91 Unspecified atrial fibrillation; F12.10 Cannabis abuse, uncomplicated; M25.552 Pain in left hip; T38.0X5A Adverse effect of glucocorticoids and synthetic analogues, initial encounter; Z11.52 Encounter for screening for COVID-19; Z79.52 Long term (current) use of systemic steroids; Z79.82 Long term (current) use of aspirin; Z68.30 Body mass index [BMI] 30.0-30.9, adult; Z90.49 Acquired absence of other specified parts of digestive tract; Z87.891 Personal history of nicotine dependence; Z79.899 Other long term (current) drug therapy; Z79.890 Hormone replacement therapy
CPT/HCPCS: 36415; 36600; 71045; 80048; 80053; 80061; 80076; 80307; 81001; 82805; 82947; 83605; 83690; 83735; 83880; 84100; 84145; 84439; 84443; 84484; 85025; 85610; 87040; 87086; 87088; 87804; 87811; 93005; 94660; 94760; 97116; 97161; 97530; 99285; J0696; J1100; J1644; J1815; J1940; J2405; J2930; J7030; J7050; J7512; J7605; J7613; J7614; J7644

== ENCOUNTER 2023-02-20 13:52 | Inpatient (IN) | payer OTHER ==
[2023-02-20] MEDS ORDERED: ALBUTEROL 2.5 MG/3 ML NEB SOL ONE (14:09)
[2023-02-20] MEDS ORDERED: IPRATROPIUM BROM 0.5MG/2.5ML ONE (14:09)
[2023-02-20] MEDS ORDERED: METHYLPREDNISOLONE 125 MG INJ ONE (14:09)
[2023-02-20] MEDS ORDERED: AZITHROMYCIN 250 MG TAB ONE (14:10)
[2023-02-20 14:42] LABS: Arterial Blood Carboxyhemoglob 1.5 % (0-1.5); Blood Gas Oxyhemoglobin 95.4 % (94-97); Blood O2 Saturation 98.9 % (92-98.5)
[2023-02-20] MEDS ORDERED: DIAZEPAM 10 MG/2 ML INJ SYRINGE ONE (14:51)
--- NOTE | 2023-02-20 14:53 | RAD REPORT ---
EXAM DESCRIPTION: Luz Single View02/20/2023 2:32 pm CLINICAL HISTORY: Chest pain COMPARISON: February 03, 2023 FINDINGS: Left upper lobe nodule is unchanged. Mild to moderate right and mild left pulmonary opacities Cardiomegaly IMPRESSION: Mild to moderate right and mild left pulmonary opacities may represent pulmonary edema o r pneumonia Stable left upper lobe nodule
[2023-02-20 14:58] LABS: Lymphocytes % 10.4 % (15.3-44.8); MCV 97.8 fL (80-100); MPV 8.4 fL (7.6-11.3); Platelets 206 thou/uL (152-406); RBC Red Blood Cell Count 3.47 M/uL (4.33-5.43)
[2023-02-20] MEDS ORDERED: CEFTRIAXONE 1000 MG/VIAL ONE (14:59)
[2023-02-20 15:14] LABS: Potassium 3.7 mEq/L (3.5-5.1)
--- NOTE | 2023-02-20 15:25 | EDPHYS ---
Physician Documentation [facility] Name: Joe Singh Age: 72 yrs Sex: Male : 1950 Arrival Date: 02/20/2023 Time: 13:52 Bed 8 Private MD: ED Physician Sherman Chen HPI: 02/20 14:07 This 72 yrs old Male presents to ER via EMS with complaints of Shortness Of ec2 Breath. 14:07 Patient arrives today for evaluation of shortness of breath. Patient reports that he ec2 has a history of COPD and CHF, has been having cough and cold symptoms along with lower extremity swelling as well as difficulty breathing. Has been using his inhalers at home with minimal improvement in symptoms.. Historical: - Allergies: 14:03 No Known Allergies; kc6 - PMHx: 14:03 Atrial fibrillation; Chronic obstructive lung disease; Congestive heart failure; kc6 neuropathy; - PSHx: 14:03 None; kc6 - Immunization history:: Adult Immunizations unknown. - Social history:: Smoking status: Patient denies any tobacco usage or history of. ROS: 14:07 Constitutional: as per hpi ec2 Exam: 14:07 Constitutional: GEN: NAD Head: atraumatic Eyes: EOMI Ears: External ears are ec2 normal. CV: regular rate, bilateral lower extremity edema noted. LUNGS: Scattered wheezes noted throughout ABD: non-distended SKIN: no evidence of rashes MSK: no evidence of trauma NEURO: moves all extremities equally Vital Signs: 14:01 BP 158 / 79; Pulse 74; Resp 17 S; Temp 98.7(O); Pulse Ox 97% on 4 lpm NC; Weight 90.72 kc6 kg (R); Height 6 ft. 0 in. (R); 15:09 BP 133 / 63; Pulse 65; Resp 17 S; Pulse Ox 100% on BiPAP; kc6 16:40 BP 153 / 64; Pulse 66; Resp 17 S; Pulse Ox 100% on BiPAP; kc6 14:01 Body Mass Index 27.12 (90.72 kg, 182.88 cm) kc6 MDM: 14:02 Patient medically screened. kb 14:08 Data reviewed: vital signs. ED course: Patient arrives today for evaluation of ec2 progressive shortness of breath. Examination remarkable tachypneic individual was otherwise noted to have lower extremity edema and scattered wheezes noted throughout. Currently considering processes such as CHF, COPD, pneumonia. . 14:28 ED course: EKG independently reviewed and interpreted by me, shows normal sinus rhythm, ec2 rate of 70, no acute ST segment ovation's, intervals otherwise nonconcerning.. 14:43 ED course: I obtained a blood gas, shows significant CO2 retention with a pCO2 of 109, ec2 acidosis at 7.12. Will place the patient on BiPAP.. 15:22 ED course: Metabolic profile with renal dysfunction noted with a creatinine of 2.81 and ec2 a GFR 23. CBC is reassuring. BNP elevated at 4700. Troponin within normal ranges. Chest x-ray shows pulmonary opacities noted, patient already received antibiotics. Negative flu and COVID testing. Will admit for COPD exacerbation, BiPAP requirement. . 02/20 14:06 Order name: Basic Metabolic Panel; Complete Time: 15:21 ec2 02/20 14:06 Order name: CBC with Diff; Complete Time: 15:21 ec2 02/20 14:06 Order name: NT PRO-BNP; Complete Time: 15:21 ec2 02/20 14:06 Order name: Troponin HS; Complete Time: 15:21 ec2 02/20 14:08 Order name: Arterial Blood Gas ec2 02/20 14:08 Order name: Influenza Screen (a \T\ B); Complete Time: 15:21 ec2 02/20 14:08 Order name: COVID-19 SARS RT PCR; Complete Time: 15:21 ec2 02/20 17:00 Order name: ABG Arterial Blood Gas EDWY 02/20 14:06 Order name: XRAY Chest (1 view); Complete Time: 15:21 ec2 02/20 14:43 Order name: BIPAP ec2 02/20 14:06 Order name: EKG; Complete Time: 14:07 ec2 02/20 14:06 Order name: Cardiac monitoring; Complete Time: 14:07 ec2 02/20 14:06 Order name: EKG - Nurse/Tech; Complete Time: 14:43 ec2 02/20 14:06 Order name: IV Saline Lock; Complete Time: 14:43 ec2 02/20 14:06 Order name: Labs collected and sent; Complete Time: 14:43 ec2 02/20 14:06 Order name: O2 Per Protocol; Complete Time: 14:07 ec2 02/20 14:06 Order name: O2 Sat Monitoring; Complete Time: 14:07 ec2 Administered Medications: 14:42 Drug: MethylPrednisoLONE IVP 125 mg IVP once Route: IVP; Site: left wrist; kc6 14:57 Follow up: Response: No adverse reaction kc6 14:42 Drug: DuoNeb Nebulize (3:1) (2.5 mg - 0.5 mg) 3 ml Nebulizer once Route: Nebulizer; kc6 14:57 Follow up: Response: No adverse reaction; Wheezing diminished kc6 14:42 Drug: AZITHromycin PO 500 mg PO once Route: PO; kc6 14:57 Follow up: Response: No adverse reaction kc6 14:56 Drug: Diazepam IVP 5 mg IVP once Route: IVP; Site: left wrist; kc6 15:13 Follow up: Response: No adverse reaction; Anxiety decreased; RASS: Drowsy (-1) kc6 15:03 Drug: Rocephin IV 1 grams IV at calculated rate once; Given slow IV push per pharmacy kc6 instructions Route: IV; Rate: calculated rate; Site: left wrist; 15:13 Follow up: Response: No adverse reaction; IV Status: Completed infusion; IV Intake: [id number] Disposition: 15:24 Critical Care:. ec2 Disposition Summary: 02/20/23 15:24 Hospitalization Ordered Notes: Hospitalization Status: Inpatient Admission ec2 Provider: Jb Sterling ec2 Location: Intensive Care Unit ec2 Condition: Stable ec2 Problem: an acute exacerbation ec2 Symptoms: have improved ec2 Bed/Room Type: Standard ec2 Room Assignment: 2-(02/20/23 17:50) bd Diagnosis - COPD/ Chronic obstructive pulmonary disease with (acute) exacerbation ec2 Forms: - Medication Reconciliation Form ec2 - SBAR form ec2 - Leadership Thank You Letter ec2 Critical care time excluding procedures: 15:24 Critical care time: Bedside Care: 30 minutes, Consultation: 5 minutes. Total time: 35 ec2 minutes Signatures: Dispatcher [employer] Donna Ugarte FNP-C FNP-Ckb Dirrim, Barbara bd Campbell, Kaitlyn, RN RN kc6 Sherman Chen MD MD ec2 Corrections: (The following items were deleted from the chart) 17:50 15:24 ec2 bd
--- NOTE | 2023-02-20 15:25 | ER ---
Nurse's Notes [facility] Name: Joe Singh Age: 72 yrs Sex: Male : 1950 Arrival Date: 02/20/2023 Time: 13:52 Bed 8 Private MD: Diagnosis: COPD/ Chronic obstructive pulmonary disease with (acute) exacerbation Presentation: 02/20 14:01 Chief complaint: EMS states: shortness of breath and breathing difficulty that started kc6 this AM. pt was hospitalized here about a week ago. EMS also reports multiple falls today. Coronavirus screen: At this time, the client does not indicate any symptoms associated with coronavirus-19. Ebola Screen: No symptoms or risks identified at this time. Initial Sepsis Screen: Does the patient meet any 2 criteria? No. Patient's initial sepsis screen is negative. Does the patient have a suspected source of infection? No. Patient's initial sepsis screen is negative. Risk Assessment: Do you want to hurt yourself or someone else? Patient reports no desire to harm self or others. Onset of symptoms was February 20, 2023. 14:01 Method Of Arrival: EMS: [facility] kc6 14:01 Acuity: JENNY 3 kc6 Triage Assessment: 14:03 General: Appears in no apparent distress. comfortable, unkempt, well developed, kc6 Behavior is calm, cooperative, appropriate for age. EENT: No signs and/or symptoms were reported regarding the EENT system. Neuro: Level of Consciousness is awake, obeys commands, lethargic, Oriented to person, place, time, situation, Appropriate for age. Cardiovascular: Denies chest pain, Heart tones S1 S2 present Capillary refill < 3 seconds Rhythm is sinus rhythm. Respiratory: Reports shortness of breath Airway is patent Trachea midline Respiratory effort is even, unlabored, Respiratory pattern is regular, symmetrical, Onset: The symptoms/episode began/occurred this morning, the patient has mild shortness of breath. GI: No signs and/or symptoms were reported involving the gastrointestinal system. : No signs and/or symptoms were reported regarding the genitourinary system. Derm: No signs and/or symptoms reported regarding the dermatologic system. Skin has skin tears on RENE upper extremeties Skin is pink, warm \T\ dry. Musculoskeletal: No signs and/or symptoms reported regarding the musculoskeletal system. Circulation, motion, and sensation intact. Capillary refill < 3 seconds, Range of motion: intact in all extremities. Historical: - Allergies: 14:03 No Known Allergies; kc6 - PMHx: 14:03 Atrial fibrillation; Chronic obstructive lung disease; Congestive heart failure; kc6 neuropathy; - PSHx: 14:03 None; kc6 - Immunization history:: Adult Immunizations unknown. - Social history:: Smoking status: Patient denies any tobacco usage or history of. Screenin:05 [facility] ED Fall Risk Assessment (Adult) History of falling in the last 3 months, kc6 including since admission Yes- single mechanical fall (1 pt) Confusion or Disorientation No (0 pts) Intoxicated or Sedated No (0 pts) Impaired Gait Yes (1 pt) Mobility Assist Device Used Yes (1 pt) Altered Elimination No (0 pt) Score/Fall Risk Level 3 or more points = High Risk. Abuse screen: Denies threats or abuse. Denies injuries from another. Nutritional screening: No deficits noted. Tuberculosis screening: No symptoms or risk factors identified. Assessment: 14:05 Reassessment: pt was 87% on RA. placed on 4L via NC, now 97%. kc6 14:45 Reassessment: pt placed on bipap. kc6 15:05 Reassessment: Patient appears in no apparent distress at this time. No changes from kc6 previously documented assessment. Patient and/or family updated on plan of care and expected duration. Pain level reassessed. Patient is alert, oriented x 3, equal unlabored respirations, skin warm/dry/pink. 16:05 Reassessment: Patient appears in no apparent distress at this time. No changes from kc6 previously documented assessment. Patient and/or family updated on plan of care and expected duration. Pain level reassessed. Patient is alert, oriented x 3, equal unlabored respirations, skin warm/dry/pink. 17:05 Reassessment: Patient appears in no apparent distress at this time. No changes from kc6 previously documented assessment. Patient and/or family updated on plan of care and expected duration. Pain level reassessed. Patient is alert, oriented x 3, equal unlabored respirations, skin warm/dry/pink. Vital Signs: 14:01 BP 158 / 79; Pulse 74; Resp 17 S; Temp 98.7(O); Pulse Ox 97% on 4 lpm NC; Weight 90.72 kc6 kg (R); Height 6 ft. 0 in. (R); 15:09 BP 133 / 63; Pulse 65; Resp 17 S; Pulse Ox 100% on BiPAP; kc6 16:40 BP 153 / 64; Pulse 66; Resp 17 S; Pulse Ox 100% on BiPAP; kc6 14:01 Body Mass Index 27.12 (90.72 kg, 182.88 cm) [facility] ED Course: 14:01 Patient arrived in ED. kc 14:02 Sherman Chen MD is Attending Physician. kb 14:03 Triage completed. kc6 14:03 Arm band placed on. kc6 14:05 Patient has correct armband on for positive identification. Placed in gown. Bed in low kc6 position. Call light in reach. Side rails up X2. Client placed on continuous cardiac and pulse oximetry monitoring. NIBP monitoring applied. personal vehicle advisor on. 14:05 Maintain EMS IV. Dressing intact. Good blood return noted. Site clean \T\ dry. Gauge \T\ lillian 6 site: 20G RH. Oxygen administration via nasal cannula \T\ 4L/min. 14:07 Olivia Beaver, YOLANDA is Primary Nurse. kc6 14:34 XRAY Chest (1 view) In Process Unspecified. EDMS 14:42 Influenza Screen (a \T\ B) Sent. kc 14:42 COVID-19 SARS RT PCR Sent. kc6 14:43 Missed attempt(s): 20 gauge in right antecubital area. Inserted saline lock: 20 gauge [facility] in left wrist, using aseptic technique. Blood collected. 15:00 Door closed. Noise minimized. Lights dimmed. Warm blanket given. Pillow given. Head of [facility] bed elevated. 15:24 Jb Sterling MD is Hospitalizing Provider. ec2 16:46 initiated transfer to [facility], pt denied at all [facility] campus with pulmonary bd capabilities due to being on saturation. per Bibi Stauffer. 17:12 No provider procedures requiring assistance completed. Patient admitted, IV remains in kc6 place. Administered Medications: 14:42 Drug: MethylPrednisoLONE IVP 125 mg IVP once Route: IVP; Site: left wrist; [facility] 14:57 Follow up: Response: No adverse reaction [facility] 14:42 Drug: DuoNeb Nebulize (3:1) (2.5 mg - 0.5 mg) 3 ml Nebulizer once Route: Nebulizer; kc6 14:57 Follow up: Response: No adverse reaction; Wheezing diminished kc6 14:42 Drug: AZITHromycin PO 500 mg PO once Route: PO; kc6 14:57 Follow up: Response: No adverse reaction kc6 14:56 Drug: Diazepam IVP 5 mg IVP once Route: IVP; Site: left wrist; kc6 15:13 Follow up: Response: No adverse reaction; Anxiety decreased; RASS: Drowsy (-1) kc6 15:03 Drug: Rocephin IV 1 grams IV at calculated rate once; Given slow IV push per pharmacy kc6 instructions Route: IV; Rate: calculated rate; Site: left wrist; 15:13 Follow up: Response: No adverse reaction; IV Status: Completed infusion; IV Intake: [id number] Medication: 17:12 VIS not applicable for this client. kc6 Intake: 15:13 IV: 10ml; Total: 10ml. kc6 Outcome: 15:24 Decision to Hospitalize by Provider. ec2 17:12 Admitted to ER Hold. Please see [facility] for further documentation. kc6 17:12 Condition: stable 17:12 Instructed on the need for admit, 18:47 Patient left the ED. 6 Signatures: Dispatcher [employer] Donna Ugarte, ISIDRO DEL CIDP-Selena Louis Kaitlyn, RN RN 6 Sherman Chen MD MD ec2 Corrections: (The following items were deleted from the chart) 14:06 14:01 Chief complaint: EMS states: shortness of breath and breathing difficulty that kc6 started this AM. pt was hospitalized here about a week ago kc6 15:09 15:08 Reassessment: pt placed on bipap kc6 kc6
[2023-02-20] MEDS ORDERED: ONDANSETRON 4 MG/2 ML VIAL IV PRN (17:08)
[2023-02-20] MEDS: METHYLPREDNISOLONE 40 MG INJ IV SCH (17:08)
[2023-02-20] MEDS: FUROSEMIDE 40 MG/4 ML VIAL IV SCH (17:08)
--- NOTE | 2023-02-20 17:13 | P.HP ---
Certification for Inpatient Patient admitted to: Inpatient With expected LOS: >2 Midnights Patient will require the following post-hospital care: None Practitioner: I am a practitioner with admitting privileges, knowledge of patient current condition, hospital course, and medical plan of care. Services: Services provided to patient in accordance with Admission requirements found in Title 42 Section 412.3 of the Code of Federal Regulations <Chan Echevarria - Last Filed: 02/20/23 17:09> Patient History Date of Service: 02/20/23 Reason for admission: Hypercapnic respiratory failure History of Present Illness: 72-year-old male with history of chronic diastolic congestive heart failure, diabetes mellitus type 2, advanced COPD, CKD 4 presents to the emergency department for shortness of breath. Per chart review patient reports that his shortness of breath began this morning he was brought in by EMS. He was recently admitted to the hospital here on 02/03/2023 and discharged on 02/05/2023 for hypercapnic respiratory failure. History is limited by patient's current respiratory distress on BiPAP. He was evaluated in the emergency department his labs were significant for hemoglobin 10.7 hematocrit 34 bicarb 34 creatinine 2.1 GFR 23 glucose 168 BNP 4763 ABG was performed with a pH of 7.12 and pCO2 of 109. Patient was placed on BiPAP after ABG was obtained, given IV steroids, nebulizer treatments. Patient may be admitted to the ICU for further management hypercapnic respiratory failure. - Past Medical/Surgical History Diabetic: Yes -: Chronic diastolic congestive heart failure -: Diabetes Type 2 -: CKD 4 -: Afib -: Obesity hypoventilation syndrome -: Advanced COPD -: appendectomy -: Neck surgery 2013 -: Left knee surgery Psychosocial/ Personal History: Lives at home with family - Family History Father -: Heart disease, Liver disease Notes: Alcoholic Mother -: Heart disease, Hypertension, Diabetes Sister -: Heart disease Notes: [place] Brother -: Heart disease Notes: [place], CHF older sister -: Heart disease, Kidney disease - Social History Smoking Status: Unknown if ever smoked Alcohol use: No CD- Drugs: Yes Caffeine use: Yes <Chan Echevarria - Last Filed: 02/20/23 17:09> Date of Service: 02/20/23 <Jb Sterling - Last Filed: 02/20/23 21:29> Allergies No Known Allergies Allergy (Verified 12/14/22 23:09) Home Medications: Amlodipine Besylate 10 mg PO DAILY 12/16/22 Arformoterol Tartrate 15 mcg IH BID 12/16/22 Budesonide [Pulmicort*] 0.5 mg NEB BID 12/16/22 Bumetanide 0.5 mg PO DAILY 12/16/22 Ergocalciferol (Vitamin D2) [Vitamin D2] 50,000 unit PO EVERY 7TH DAY 12/16/22 Hydrocodone 5/APAP 325 [Lena 5/325*] 5 mg PO Q6HR 12/16/22 Ipratropium/Albuterol Sulfate [Iprat-Albut 0.5-3(2.5) mg/3 ml] 3 ml IH Q6HR 12/16/22 Levothyroxine Sodium [Synthroid] 150 mcg PO DAILY 12/16/22 Magnesium Oxide [Mag 0X*] 400 mg PO DAILY 12/16/22 Oxymetazoline HCl [Afrin] 15 ml IN QOD QID 12/16/22 Fluticasone/Umeclidin/Vilanter [Trelegy Ellipta 100-62.5-25] 1 each IH DAILY 30 Days #30 aero 12/17/22 acetaZOLAMIDE [Diamox*] 250 mg PO DAILY #30 tab 12/18/22 Aspirin Chewable [Aspirin Chewable*] 81 mg PO DAILY 02/03/23 Atorvastatin Calcium [Lipitor] 80 mg PO BEDTIME 02/03/23 Famotidine [Pepcid*] 20 mg PO DAILY 02/03/23 Finasteride [Proscar*] 5 mg PO DAILY 02/03/23 Furosemide [Lasix*] 20 mg PO BIDL 02/03/23 Quetiapine Fumarate [Seroquel] 25 mg PO BID 02/03/23 Sodium Bicarbonate 1,300 mg PO BID 02/03/23 methocarbamoL [Methocarbamol] 1 tab PO Q8HP PRN 02/03/23 Cefuroxime [Ceftin*] 250 mg PO BID 7 Days #14 tab 02/05/23 Hydrocodone/Acetaminophen [Hydrocodon-Acetaminophen 5-325] 1 each PO Q12H PRN #10 tab 02/05/23 predniSONE [Prednisone] 20 mg PO BID 4 Days #8 tab 02/05/23 Review of Systems 10-point ROS is otherwise unremarkable Respiratory: Shortness of Breath <Chan Echevarria - Last Filed: 02/20/23 17:09> Physical Examination - Vital Signs Pulse: 74 Pulse Ox (%): 100 - Physical Exam General: Alert, In no apparent distress, Oriented x3, Other (Drowsy) HEENT: Atraumatic, PERRLA, Mucous membr. moist/pink Neck: Supple, 2+ carotid pulse no bruit, No LAD Respiratory: Diminished, Expiratory wheezes, Other (Mild distresson BiPAP) Cardiovascular: Regular rate/rhythm, Normal S1 S2, Edema (1+ pitting edema bilateral lower extremities) Gastrointestinal: Normal bowel sounds, No tenderness Musculoskeletal: No tenderness Integumentary: No rashes Neurological: Normal speech, Normal strength at 5/5 x4 extr, Normal tone, Normal affect - Studies Laboratory Data (last 24 hrs) 02/20/23 02/20/23 14:39 14:39 WBC 9.40 Hgb 10.7 L Hct 34.0 L Plt Count 206 Sodium 141 Potassium 3.7 BUN 56 H Creatinine 2.81 H Glucose 168 H Microbiology Data (last 24 hrs): 02/20/23 14:28 Nasopharnyx Influenza Type A Antigen Screen - Final 02/20/23 14:28 Nasopharnyx Influenza Type B Antigen Screen - Final <Chan Echevarria - Last Filed: 02/20/23 17:09> - Studies Laboratory Data (last 24 hrs) 02/20/23 02/20/23 14:39 14:39 WBC 9.40 Hgb 10.7 L Hct 34.0 L Plt Count 206 Sodium 141 Potassium 3.7 BUN 56 H Creatinine 2.81 H Glucose 168 H Microbiology Data (last 24 hrs): 02/20/23 14:28 Nasopharnyx Influenza Type A Antigen Screen - Final 02/20/23 14:28 Nasopharnyx Influenza Type B Antigen Screen - Final <Jb Sterling - Last Filed: 02/20/23 21:29> Assessment and Plan - Plan Assessment: Acute on chronic hypercapnic respiratory failure secondary to COPD exacerbation Acute on chronic diastolic congestive heart failure Diabetes mellitus type [id number] CKD 4 Hypertension Plan: Acute on chronic hypercapnic respiratory failure secondary to COPD exacerbation Acute on chronic diastolic congestive heart failure Continue BiPAP, repeat ABG this evening Monitor in ICU given significant hypercapnia, respiratory acidosis Continue scheduled nebs, IV steroids Diuresis with Lasix given pitting edema lower extremities Diabetes mellitus type [id number] ACHS Accu-Chek, sliding scale insulin CKD 4 Not far from baseline, patient will require diuresis for acute on chronic diastolic congestive heart failure Patient's nephrology consulted Monitor chemistries daily Hypertension Obtain and continue home medications as appropriate DVT PPX: Subcu heparin Code status: Full Discharge Plan: Home Plan to discharge in: Greater than 2 days - Advance Directives Does patient have a Living Will: No Does patient have a Durable POA for Healthcare: No - Code Status/Comfort Care Code Status Assessed: Yes (Full code) Critical Care: No Time Spent Managing Pts Care (In Minutes): 70 <Chan Echevarria - Last Filed: 02/20/23 17:09> Physician Review: Patient Assessed, Agree with Above Assessment and Plan <Jb Sterling - Last Filed: 02/20/23 21:29>
[2023-02-20 18:32] LABS: Arterial Blood Carboxyhemoglob 1.6 % (0-1.5); Blood Gas Oxyhemoglobin 80.4 % (94-97); Blood O2 Saturation 83.2 % (92-98.5)
[2023-02-20] MEDS: IPRATROPIUM BROM 0.5MG/2.5ML NEB SCH (19:25)
[2023-02-20] MEDS: ALBUTEROL 2.5 MG/3 ML NEB SOL NEB SCH (19:25)
[2023-02-20] MEDS ORDERED: HEPARIN 5000 UNIT/ML 1 ML VIAL ONE (20:48)
[2023-02-20] MEDS: INSULIN REGULAR (HUMAN) 100 UNIT/ML SQ SCH (21:00)
--- NOTE | 2023-02-20 21:17 | P.CNS ---
Date of Consult: 02/20/23 Reason for Consult: CKD IV Requesting Physician: Jb Sterling Chief Complaint: Hypercapnic respiratory failure History of Present Illness: 72-year-old male with history of chronic diastolic congestive heart failure, diabetes mellitus type 2, advanced COPD, CKD 4 presents to the emergency department for shortness of breath. Per chart review patient reports that his shortness of breath began this morning he was brought in by EMS. He was recently admitted to the hospital here on 02/03/2023 and discharged on 02/05/2023 for hypercapnic respiratory failure. History is limited by patient's current respiratory distress on BiPAP. He was evaluated in the emergency department his labs were significant for hemoglobin 10.7 hematocrit 34 bicarb 34 creatinine 2.1 GFR 23 glucose 168 BNP 4763 ABG was performed with a pH of 7.12 and pCO2 of 109. Patient was placed on BiPAP after ABG was obtained, given IV steroids, nebulizer treatments. Patient may be admitted to the ICU for further management hypercapnic respiratory failure. princess 14:07 This 72 yrs old Male presents to ER via EMS with complaints of Shortness Of ec2 Breath. 14:07 Patient arrives today for evaluation of shortness of breath. Patient reports that he ec2 has a history of COPD and CHF, has been having cough and cold symptoms along with lower extremity swelling as well as difficulty breathing. Has been using his inhalers at home with minimal improvement in symptoms. Allergies No Known Allergies Allergy (Verified 12/14/22 23:09) Home medications list reviewed: Yes Home Medications: Amlodipine Besylate 10 mg PO DAILY 12/16/22 Arformoterol Tartrate 15 mcg IH BID 12/16/22 Budesonide [Pulmicort*] 0.5 mg NEB BID 12/16/22 Bumetanide 0.5 mg PO DAILY 12/16/22 Ergocalciferol (Vitamin D2) [Vitamin D2] 50,000 unit PO EVERY 7TH DAY 12/16/22 Hydrocodone 5/APAP 325 [[place] 5/325*] 5 mg PO Q6HR 12/16/22 Ipratropium/Albuterol Sulfate [Iprat-Albut 0.5-3(2.5) mg/3 ml] 3 ml IH Q6HR 12/16/22 Levothyroxine Sodium [Synthroid] 150 mcg PO DAILY 12/16/22 Magnesium Oxide [Mag 0X*] 400 mg PO DAILY 12/16/22 Oxymetazoline HCl [Afrin] 15 ml IN QOD QID 12/16/22 Fluticasone/Umeclidin/Vilanter [Trelegy Ellipta 100-62.5-25] 1 each IH DAILY 30 Days #30 aero 12/17/22 acetaZOLAMIDE [Diamox*] 250 mg PO DAILY #30 tab 12/18/22 Aspirin Chewable [Aspirin Chewable*] 81 mg PO DAILY 02/03/23 Atorvastatin Calcium [Lipitor] 80 mg PO BEDTIME 02/03/23 Famotidine [Pepcid*] 20 mg PO DAILY 02/03/23 Finasteride [Proscar*] 5 mg PO DAILY 02/03/23 Furosemide [Lasix*] 20 mg PO BIDL 02/03/23 Quetiapine Fumarate [Seroquel] 25 mg PO BID 02/03/23 Sodium Bicarbonate 1,300 mg PO BID 02/03/23 methocarbamoL [Methocarbamol] 1 tab PO Q8HP PRN 02/03/23 Cefuroxime [Ceftin*] 250 mg PO BID 7 Days #14 tab 02/05/23 Hydrocodone/Acetaminophen [Hydrocodon-Acetaminophen 5-325] 1 each PO Q12H PRN #10 tab 02/05/23 predniSONE [Prednisone] 20 mg PO BID 4 Days #8 tab 02/05/23 - Past Medical/Surgical History Diabetic: Yes -: Diastolic CHF -: DM II -: CKD 4 with Proteinuria (Dr. Garsia/ Dr. Hoffman) -: Afib -: Obesity hypoventilation syndrome -: Advanced COPD -: appendectomy -: Neck surgery 2013 -: Left knee surgery Psychosocial/ Personal History: Lives at home with family - Family History Father Medical History: Heart disease, Liver disease Notes: Alcoholic Mother Medical History: Heart disease, Hypertension, Diabetes Sister Medical History: Heart disease Notes: [place] Brother Medical History: Heart disease Notes: [place], CHF older sister Medical History: Heart disease, Kidney disease - Social History Smoking Status: Unknown if ever smoked Alcohol use: No CD- Drugs: No Caffeine use: Yes Place of Residence: Home Review of Systems 10-point ROS is otherwise unremarkable General: Weakness, Malaise Respiratory: SOB with Excertion Physical Examination Temp Pulse Resp BP Pulse Ox 98.7 F 74 17 153/64 H 100 02/20/23 14:01 02/20/23 17:13 02/20/23 16:40 02/20/23 17:08 02/20/23 17:13 General: Oriented x3, Cooperative HEENT: Atraumatic Neck: Supple Respiratory: Expiratory wheezes Cardiovascular: Regular rate/rhythm, Edema Gastrointestinal: Soft and benign, Non-distended Musculoskeletal: No clubbing, No contractures Integumentary: No rashes, No cyanosis Neurological: Normal speech Laboratory Data (last 24 hrs) 02/20/23 02/20/23 14:39 14:39 WBC 9.40 Hgb 10.7 L Hct 34.0 L Plt Count 206 Sodium 141 Potassium 3.7 BUN 56 H Creatinine 2.81 H Glucose 168 H Imagings Data: darrenrice EXAM DESCRIPTION: RADChest Single View02/20/2023 2:32 pm CLINICAL HISTORY: Chest pain COMPARISON: February 03, 2023 FINDINGS: Left upper lobe nodule is unchanged. Mild to moderate right and mild left pulmonary opacities Cardiomegaly IMPRESSION: Mild to moderate right and mild left pulmonary opacities may represent pulmonary edema or pneumonia Stable left upper lobe nodule Conclusions/Impression: CKD IV with Proteinuria -No NSAIDs HTN with CKD/ CHF -Restart Amlodipine and titrate prn Diastolic CHF, A/C -Continue furosemide Hypercapnic Respiratory Failure, A/C -Continue Oxygen supplementation -Continue steroids -Nebs prn -BiPap prn DM II with CKD A1C 5.9 -RISS Anemia in chronic illness Iron Deficiency 11% -Monitor H&H -Consider IV iron CKD MBD -Start Ergo Hospitalist and ER notes reviewed Thank you kindly for the consultation Greater than 30min patient care
[2023-02-20] MEDS: HEPARIN 5000 UNIT/ML 1 ML VIAL SQ SCH (22:05)
[2023-02-21 00:04] VITALS: BMI 26.9
[2023-02-21] MEDS: ALBUTEROL 2.5 MG/3 ML NEB SOL NEB SCH ×4 (01:45→19:53)
[2023-02-21] MEDS: IPRATROPIUM BROM 0.5MG/2.5ML NEB SCH ×4 (01:45→19:53)
[2023-02-21] MEDS: METHYLPREDNISOLONE 40 MG INJ IV SCH ×3 (01:55→16:31)
[2023-02-21] MEDS ORDERED: METHYLPREDNISOLONE 40 MG INJ ONE (02:40)
[2023-02-21 04:50] LABS: Absolute Lymphocytes (CBC) 0.2 K/uL (0.7-4.9); Hematocrit 29.5 % (39.6-49.0); MCV 95.7 fL (80-100); MPV 8.7 fL (7.6-11.3); Platelets 186 thou/uL (152-406); RBC Red Blood Cell Count 3.09 M/uL (4.33-5.43)
[2023-02-21 05:01] LABS: Albumin 2.5 g/dL (3.4-5.0); Bilirubin Total 0.2 mg/dL (0.2-1.0); Magnesium 2.2 mg/dL (1.6-2.4); Potassium 3.9 mEq/L (3.5-5.1)
[2023-02-21 05:55] LABS: Toxic Granulation 1+
[2023-02-21 05:56] LABS: Anisocytosis 2+; Blood Morphology Comment NOTED (NOT SEEN); Platelet Estimate ADEQ
[2023-02-21 05:57] LABS: Macrocytosis 2+; Polychromasia 1+
[2023-02-21 06:22] LABS: Arterial Blood Carboxyhemoglob 1.1 % (0-1.5); Blood Gas Oxyhemoglobin 94.9 % (94-97); Blood O2 Saturation 97.8 % (92-98.5)
[2023-02-21] MEDS ORDERED: INSULIN REGULAR (HUMAN) 100 UNIT/ML ONE ×3 (07:40→16:28)
[2023-02-21] MEDS: INSULIN REGULAR (HUMAN) 100 UNIT/ML SQ SCH ×4 (07:42→21:47)
[2023-02-21] MEDS ORDERED: FUROSEMIDE 40 MG/4 ML VIAL ONE ×2 (08:17→16:28)
[2023-02-21] MEDS: HEPARIN 5000 UNIT/ML 1 ML VIAL SQ SCH ×2 (08:21→21:47)
[2023-02-21] MEDS: FUROSEMIDE 40 MG/4 ML VIAL IV SCH ×2 (08:22→16:31)
--- NOTE | 2023-02-21 08:40 | P.PN ---
Date of Service: 02/21/23 Subjective: Did well overnight-no acute events Much more alert today, answering questions Still on Bipap at this time-plan to switch to NC this morning ROS: 10 point ROS as noted above, otherwise negative Physical exam GEN: Alert, oriented, NAD HEENT: Normal conjunctiva, sclera anicteric CV: Regular rate and rhythm, no edema Pulm: Nonlabored respirations on Bipap ABD: Soft, nontender, nondistended MSK: No joint tenderness Integumentary: No rashes Neuro: Normal speech, normal affect Vitals reviewed Assessment: Acute on chronic hypercapnic respiratory failure secondary to COPD exacerbation Acute on chronic diastolic congestive heart failure Diabetes mellitus type [id number] CKD 4 Hypertension Plan: Acute on chronic hypercapnic respiratory failure secondary to COPD exacerbation Acute on chronic diastolic congestive heart failure ABG improved this morning, wean to nasal cannula Can likely downgrade from ICU this afternoon Continue scheduled nebs, steroids reports he was out of his prednisone he takes chronically at home the weeks prior to admission lower extremity edema improved Diabetes mellitus type [id number] ACHS Accu-Chek, sliding scale insulin CKD 4 Not far from baseline, patient will require diuresis for acute on chronic diastolic congestive heart failure Patient's customer care assistant consulted Monitor chemistries daily Hypertension Obtain and continue home medications as appropriate VTE: Sub Q heparin Code: Full Dispo: 1-2 days Time Spent Managing Pts Care (In Minutes): 35 <Chan Echevarria - Last Filed: 02/21/23 08:20> Patient seen and examined on rounds this morning. Plan of care reviewed and agree with DINKEY BRAKEMAN Swathi as noted above Patient breathing more comfortably, on nasal cannula more alert/oriented, near baseline recalls events, states he ran out of prednisone ~2-3 days ago also states he ran out of 2 other meds but unsure which, ~1-2 days prior to arrival here all meeds he discussed with nurse and states she had his dr send prescriptions/refills initially stated he takes chronic prednisone, but told me today that he has only been on short courses significant history of recurrent admissions for COPD / hypercapnia pt with stage 3, ~4 COPD +wheeze on exam bilaterally <Jb Sterling - Last Filed: 02/21/23 16:44>
[2023-02-21] MEDS ORDERED: ZOLPIDEM TARTRATE 5 MG TABLET PO PRN (21:34)
[2023-02-22] MEDS: METHYLPREDNISOLONE 40 MG INJ IV SCH ×2 (00:16→08:14)
[2023-02-22] MEDS: IPRATROPIUM BROM 0.5MG/2.5ML NEB SCH ×3 (01:03→14:29)
[2023-02-22] MEDS: ALBUTEROL 2.5 MG/3 ML NEB SOL NEB SCH ×3 (01:03→14:29)
[2023-02-22 02:50] LABS: Absolute Lymphocytes (CBC) 0.2 K/uL (0.7-4.9); Hematocrit 30.7 % (39.6-49.0); Lymphocytes % 2.6 % (15.3-44.8); MCV 93.9 fL (80-100); MPV 8.4 fL (7.6-11.3); Platelets 198 thou/uL (152-406); RBC Red Blood Cell Count 3.28 M/uL (4.33-5.43)
[2023-02-22 02:57] LABS: Albumin 2.7 g/dL (3.4-5.0); Bilirubin Total 0.3 mg/dL (0.2-1.0); Magnesium 2.1 mg/dL (1.6-2.4); Phosphorus 3.5 mg/dL (2.5-4.9); Potassium 3.6 mEq/L (3.5-5.1); Protein, Total 5.9 g/dL (6.4-8.2); Uric Acid 9.3 mg/dL (3.5-7.2)
[2023-02-22] MEDS: FUROSEMIDE 40 MG/4 ML VIAL IV SCH (08:14)
[2023-02-22] MEDS: HEPARIN 5000 UNIT/ML 1 ML VIAL SQ SCH (08:15)
[2023-02-22] MEDS: INSULIN REGULAR (HUMAN) 100 UNIT/ML SQ SCH ×2 (08:15→14:15)
[2023-02-22 08:20] VITALS: BP 177/88; TEMP 97.8
[2023-02-22] MEDS ORDERED: AMLODIPINE 5 MG TAB PO SCH (09:00)
[2023-02-22] MEDS ORDERED: ACETAMINOPHEN 500 MG TAB PO PRN (12:06)
--- NOTE | 2023-02-22 13:56 | P.DS ---
Admission Date: 02/20/23 Discharge Date: 02/22/23 Disposition: [place] HOME/HOME HEALTH CARE Discharge Condition: FAIR Reason for Admission: Hypercapnic respiratory failure Brief History of Present Illness: Diagnosis Acute on chronic hypercapnic respiratory failure secondary to COPD exacerbation Acute on chronic diastolic congestive heart failure Diabetes mellitus type [id number] CKD 4 Hypertension Hospital Course: Joe Ludwig is a 72-year-old male with history of chronic diastolic congestive heart failure, diabetes mellitus type 2, advanced COPD, CKD 4 presents to the emergency department 02/20/2023 for shortness of breath and admitted for hypercapnia respiratory failure. He has tolerated BiPAP and is now on 2 L nasal cannula satting 98%, he will continue his current home oxygen of 2 L nasal cannula. Joe has tolerated IV Lasix and IV steroids. Nephrology was consulted and recommends iron replacement. He is communicating well, without shortness of breath, no chest pain, independently eating, and hemodynamically stable. Prescriptions for prednisone and ferrous gluconate have been sent directly to his pharmacy. He will be discharged via ambulance, home with home health. He reports home health has refilled his needed prescriptions. He will need to follow-up with his PCP for medical management, nephrology for continued kidney management, and pulmonology for continued COPD exacerbation management. Joe is a stable for discharge today 02/22/23. Vital Signs/Physical Exam: Temp Pulse Resp BP Pulse Ox 97.8 F 78 16 177/88 H 95 02/22/23 08:00 02/22/23 08:14 02/22/23 08:00 02/22/23 08:14 02/22/23 08:00 Laboratory Data at Discharge: WBC 9.10 thou/uL (4.3-10.9) 02/22/23 02:27 Hgb 10.2 g/dL (13.6-17.9) L 02/22/23 02:27 Hct 30.7 % (39.6-49.0) L 02/22/23 02:27 Plt Count 198 thou/uL (152-406) 02/22/23 02:27 Sodium 140 mEq/L (136-145) 02/22/23 02:27 Potassium 3.6 mEq/L (3.5-5.1) 02/22/23 02:27 BUN 67 mg/dL (7-18) H 02/22/23 02:27 Creatinine 2.79 mg/dL (0.70-1.30) H 02/22/23 02:27 Glucose 249 mg/dL (74-106) H 02/22/23 02:27 Uric Acid 9.3 mg/dL (3.5-7.2) H 02/22/23 02:27 Phosphorus 3.5 mg/dL (2.5-4.9) 02/22/23 02:27 Magnesium 2.1 mg/dL (1.6-2.4) 02/22/23 02:27 Total Bilirubin 0.3 mg/dL (0.2-1.0) 02/22/23 02:27 AST 13 U/L (15-37) L 02/22/23 02:27 ALT 17 U/L (16-61) 02/22/23 02:27 Alkaline Phosphatase 74 U/L (45-117) 02/22/23 02:27 Home Medications: Amlodipine Besylate 10 mg PO DAILY 12/16/22 Arformoterol Tartrate 15 mcg IH BID 12/16/22 Budesonide [Pulmicort*] 0.5 mg NEB BID 12/16/22 Bumetanide 0.5 mg PO DAILY 12/16/22 Ergocalciferol (Vitamin D2) [Vitamin D2] 50,000 unit PO EVERY 7TH DAY 12/16/22 Ipratropium/Albuterol Sulfate [Iprat-Albut 0.5-3(2.5) mg/3 ml] 3 ml IH Q6HR 12/02 07/24 Levothyroxine Sodium [Synthroid] 150 mcg PO DAILY 12/16/22 Magnesium Oxide [Mag 0X*] 400 mg PO DAILY 12/16/22 Oxymetazoline HCl [Afrin] 15 ml IN QOD QID 12/16/22 Fluticasone/Umeclidin/Vilanter [Trelegy Ellipta 100-62.5-25] 1 each IH DAILY 30 Days #30 aero 12/17/22 acetaZOLAMIDE [Diamox*] 250 mg PO DAILY #30 tab 12/18/22 Aspirin Chewable [Aspirin Chewable*] 81 mg PO DAILY 02/03/23 Atorvastatin Calcium [Lipitor] 80 mg PO BEDTIME 02/03/23 Famotidine [Pepcid*] 20 mg PO DAILY 02/03/23 Finasteride [Proscar*] 5 mg PO DAILY 02/03/23 Furosemide [Lasix*] 20 mg PO BIDL 02/03/23 Quetiapine Fumarate [Seroquel] 25 mg PO BID 02/03/23 Sodium Bicarbonate 1,300 mg PO BID 02/03/23 methocarbamoL [Methocarbamol] 1 tab PO Q8HP PRN 02/03/23 Hydrocodone/Acetaminophen [Hydrocodone-Acetamin 5-325 mg] 1 each PO Q12H PRN #10 tab 02/05/23 Ferrous Sulfate [Feosol] 325 mg PO DAILY 30 Days #30 tab 02/22/23 predniSONE [Prednisone] 20 mg PO BID 4 Days #8 tab 02/22/23 New Medications: Ferrous Sulfate [Feosol] 325 mg PO DAILY 30 Days #30 tab predniSONE [Prednisone] 20 mg PO BID 4 Days #8 tab Physician Discharge Instructions: Physical exam GEN: Alert, oriented, NAD HEENT: Normal conjunctiva, sclera anicteric CV: Regular rate and rhythm, no edema Pulm: Nonlabored respirations on 2 L nasal cannula ABD: Soft, nontender, nondistended MSK: No joint tenderness Integumentary: No rashes Neuro: Normal speech, normal affect 1. Please call and schedule a follow-up appointment with your PCP in 3-5 days - Please follow-up with your PCP for medication refills/adjustments 2. Please call and schedule a follow-up appointment with Nephrology in one week 3. Please call and schedule a follow-up appointment with pulmonology for continued COPD management 4. Consistent carb for diabetic diet, and renal diet to be continued 5. Fall risk, activity as tolerated and with a safety 6. Home health has prescribed all home medications prior to arrival. Prescribed medications Prednisone 20 mg twice daily x 4 days Ferrous gluconate 325 mg daily x 30 days-please have PCP follow-up for continued need Diet: ADA Activity: Fall precautions Followup: Davon Carlton MD [ACTIVE - CAN ADMIT] - Darius Hoffman DO [ACTIVE - CAN ADMIT] - 1 Week NONE,NONE [Primary Care Provider] -
--- NOTE | 2023-02-22 15:13 | EKG ---
Test Date: 2023-02-20 Test Time: 14:15:48 Janitorial Maintenance Worker: REBECA MEASUREMENT RESULTS: Intervals: Rate: 70 TX: 200 QRSD: 110 QT: 428 QTc: 462 [place]: P: 82 TX: 200 QRS: 87 T: 87 INTERPRETIVE STATEMENTS: Normal sinus rhythm Nonspecific T wave abnormality Prolonged QT Abnormal ECG Compared to ECG 02/03/2023 15:23:02 Prolonged QT interval now present Sinus bradycardia no longer present Incomplete right bundle-branch block no longer present T-wave abnormality still present Electronically Signed On 02-22-23 15:09:36 MORTAR MAKER by Khang Guerrier
[2023-02-22 16:00] VITALS: O2SAT 94
--- NOTE | 2023-02-22 19:45 | P.PN ---
Date of Service: 02/22/23 Vital Signs Temp Pulse Resp BP Pulse Ox 97.8 F 78 16 177/88 H 95 02/22/23 08:00 02/22/23 08:14 02/22/23 08:00 02/22/23 08:14 02/22/23 08:00 Microbiology Results 02/20/23 14:28 Nasopharnyx Influenza Type A Antigen Screen - Final 02/20/23 14:28 Nasopharnyx Influenza Type B Antigen Screen - Final Assessment/ Plan: Nephrology No dyspnea No chest pain No acute events overnight Vitals, medications, blood work and imaging reviewed in the chart. General: Oriented x3, Cooperative HEENT: Atraumatic Neck: Supple Respiratory: Expiratory wheezes Cardiovascular: Regular rate/rhythm, Edema Gastrointestinal: Soft and benign, Non-distended Musculoskeletal: No clubbing, No contractures Integumentary: No rashes, No cyanosis Neurological: Normal speech Laboratory Data (last 24 hrs) 02/20/23 02/20/23 14:39 14:39 WBC 9.40 Hgb 10.7 L Hct 34.0 L Plt Count 206 Sodium 141 Potassium 3.7 BUN 56 H Creatinine 2.81 H Glucose 168 H Imagings Data: darrenrice EXAM DESCRIPTION: RADChest Single View02/20/2023 2:32 pm CLINICAL HISTORY: Chest pain COMPARISON: February 03, 2023 FINDINGS: Left upper lobe nodule is unchanged. Mild to moderate right and mild left pulmonary opacities Cardiomegaly IMPRESSION: Mild to moderate right and mild left pulmonary opacities may represent pulmonary edema or pneumonia Stable left upper lobe nodule Conclusions/Impression: CKD IV with Proteinuria -No NSAIDs HTN with CKD/ CHF -Continue Amlodipine and titrate prn Diastolic CHF, A/C -Continue furosemide Hypercapnic Respiratory Failure, A/C -Continue Oxygen supplementation -Continue steroids -Nebs prn -BiPap prn DM II with CKD A1C 5.9 -RISS Anemia in chronic illness Iron Deficiency 11% -Monitor H&H -Consider IV iron CKD MBD -Continue Ergo Hospitalist note reviewed
[2023-02-23] MEDS ORDERED: SOD FERRIC GLUC COMPLX/SUCROSE 125 MG in NA CHLORIDE 0.9% 100 ML IV ONE (12:07)
== END 2023-02-22 16:00 | disposition home health service (06) | DRG 189 ==
LOC: ER 13:52 → ERHOLD 17:02 → 3RD-ICU 19:23 → 2ND 02-21 17:45
PROVIDERS: ADMIT Hospitalist; ATTEND Hospitalist
PROC: 5A09357 Assistance with Respiratory Ventilation, Less than 24 Consecutive Hours, Continuous Positive Airway Pressure (ICD-10-PCS; principal; 2023-02-20)
DX: J96.22 Acute and chronic respiratory failure with hypercapnia (principal); I50.33 Acute on chronic diastolic (congestive) heart failure; J44.1 Chronic obstructive pulmonary disease with (acute) exacerbation; I13.0 Hypertensive heart and chronic kidney disease with heart failure and stage 1 through stage 4 chronic kidney disease, or unspecified chronic kidney disease; N18.4 Chronic kidney disease, stage 4 (severe); E66.2 Morbid (severe) obesity with alveolar hypoventilation; E11.22 Type 2 diabetes mellitus with diabetic chronic kidney disease; Z79.4 Long term (current) use of insulin; I48.91 Unspecified atrial fibrillation; Z79.01 Long term (current) use of anticoagulants; Z68.26 Body mass index [BMI] 26.0-26.9, adult; Z90.49 Acquired absence of other specified parts of digestive tract; D64.9 Anemia, unspecified
CPT/HCPCS: 36415; 36600; 71045; 80048; 80053; 82805; 82947; 83735; 83880; 84100; 84484; 84550; 85025; 87635; 87804; 93005; 94640; 94660; 94760; 96374; 96375; 99285; J0696; J1644; J1815; J1940; J2920; J2930; J3360; J7613; J7644

== ENCOUNTER → 2023-03-14 | Emergency (ER) | payer OTHER ==
[2023-03-14 15:49] LABS: Absolute Lymphocytes (CBC) 0.6 K/uL (0.7-4.9); Hematocrit 34.9 % (39.6-49.0); MCV 94.6 fL (80-100); MPV 8.2 fL (7.6-11.3); Platelets 238 thou/uL (152-406); RBC Red Blood Cell Count 3.69 M/uL (4.33-5.43)
[2023-03-14 16:07] LABS: Albumin 2.9 g/dL (3.4-5.0); Bilirubin Total 0.3 mg/dL (0.2-1.0); Potassium 4.5 mEq/L (3.5-5.1)
[2023-03-14 16:57] LABS: Blood Morphology Comment NOT SEEN (NOT SEEN); Platelet Estimate ADEQ; White Blood Cell Scan OK (OK)
--- NOTE | 2023-03-14 17:18 | RAD REPORT ---
EXAM DESCRIPTION: US - Extremity Venous Uni Ltd - 03/14/2023 4:04 pm CLINICAL HISTORY: Swelling COMPARISON: None. TECHNIQUE: Real-time sonographic evaluation of the left lower extremity deep venous system was perfo rmed. FINDINGS: Normal compressibility, flow augmentation, phasic flow and spontaneous flow is identified in the left lower extremity deep venous system. No intraluminal filling defects seen. IMPRESSION: No DVT in the left lower extremity.
--- NOTE | 2023-03-14 17:44 | ER ---
Nurse's Notes [facility] Name: Joe Singh Age: 72 yrs Sex: Male : 1950 Arrival Date: 03/14/2023 Time: 14:15 Bed 5 Private MD: Diagnosis: Cellulitis, unspecified Presentation: 03/14 14:43 Chief complaint: Patient states: Sent by PCP for L leg swelling, states that swelling ph has been occurring for a few weeks, is improving but PCP did labs that show possible infection, sent to ER for further evaluation. Coronavirus screen: Vaccine status: Patient reports receiving the 2nd dose of the covid vaccine. Ebola Screen: No symptoms or risks identified at this time. Initial Sepsis Screen: Does the patient meet any 2 criteria? No. Patient's initial sepsis screen is negative. Does the patient have a suspected source of infection? No. Patient's initial sepsis screen is negative. Risk Assessment: Do you want to hurt yourself or someone else? Patient reports no desire to harm self or others. Onset of symptoms was March 14, 2023. 14:43 Method Of Arrival: Wheelchair ph 14:43 Acuity: JENNY 3 ph Historical: - PMHx: 14:45 Atrial fibrillation; Chronic obstructive lung disease; Congestive heart failure; ld1 neuropathy; - Immunization history:: Adult Immunizations up to date. - Social history:: Smoking status: Patient denies any tobacco usage or history of. Screenin:00 [facility] ED Fall Risk Assessment (Adult) History of falling in the last 3 months, ko1 including since admission No falls in past 3 months (0 pts) Confusion or Disorientation No (0 pts) Intoxicated or Sedated No (0 pts) Impaired Gait No (0 pts) Mobility Assist Device Used No (0 pt) Altered Elimination No (0 pt) Score/Fall Risk Level 0 - 2 = Low Risk Oriented to surroundings, Maintained a safe environment, Educated pt \T\ family on fall prevention, incl call for assistance when getting out of bed, Assessed \T\ reinforced patient's understanding of fall precautions, Provided non-skid footwear, Hourly rounding (assess needs \T\ fall precautionary measures) done, Used ambulatory aids as needed (educated on \T\ assisted with), Used gait belt as appropriate. Abuse screen: Denies threats or abuse. Denies injuries from another. Nutritional screening: No deficits noted. Tuberculosis screening: No symptoms or risk factors identified. Assessment: 15:00 General: Appears in no apparent distress. uncomfortable, Behavior is calm, cooperative, ko1 appropriate for age. 15:00 Pain: Complains of pain in left foot. Neuro: No deficits noted. Cardiovascular: No ko1 deficits noted. Respiratory: No deficits noted. GI: No deficits noted. : No deficits noted. EENT: No deficits noted. Derm: Skin is dry, Skin is pale. Musculoskeletal: Reports pain in left foot. Vital Signs: 14:43 BP 171 / 86; Pulse 66; Resp 18; Temp 98(O); Pulse Ox 93% on 2 lpm NC; Weight 90.72 kg; ph Height 6 ft. 0 in. ; 15:36 BP 123 / 81; Pulse 62; Resp 18; Pulse Ox 96% on R/A; ld1 16:54 BP 157 / 76; Pulse 61; Resp 18; Pulse Ox 97% on R/A; ld1 17:30 BP 145 / 77; Pulse 58; Resp 16; Pulse Ox 98% ; ko1 14:43 Body Mass Index 27.12 (90.72 kg, 182.88 cm) ph 14:43 uses oxygen at home, 2L NC ph ED Course: 14:18 Patient arrived in ED. mg5 14:22 Whitney Benjamin MD is Attending Physician. sp3 14:47 Triage completed. ph 14:47 Arm band placed on Patient placed in an exam room. ph 15:00 Patient has correct armband on for positive identification. Placed in gown. Bed in low ko1 position. Call light in reach. Side rails up X 1. Client placed on continuous cardiac and pulse oximetry monitoring. NIBP monitoring applied. neuro psych sales specialist on. Door closed. Noise minimized. Lights dimmed. Warm blanket given. Pillow given. 15:10 Cindy York, RN is Primary Nurse. ko1 15:34 Initial lab(s) drawn, by me, sent to lab. Inserted saline lock: 22 gauge in left wrist, aa5 using aseptic technique. Blood collected. 16:06 Extremity Venous Unilateral Ltd In Process Unspecified. EDMS 17:48 Provided Education on: na. ko1 17:48 No provider procedures requiring assistance completed. IV discontinued, intact, ko1 bleeding controlled, No redness/swelling at site. Pressure dressing applied. Administered Medications: No medications were administered Medication: 17:48 VIS not applicable for this client. ko1 Outcome: 17:44 Discharge ordered by . sp3 17:48 Discharged to home ambulatory, ko1 17:48 Condition: stable 17:48 Discharge instructions given to patient, Instructed on discharge instructions, follow up and referral plans. 17:50 Demonstrated understanding of instructions, follow-up care, medications, ko1 18:04 Patient left the ED. ld1 Signatures: Dispatcher [employer] EDMS Sherrie Hidalgo, RN RN aa5 Esme Barksdale RN RN Sarah Abdi RN RN ld1 Whitney Benjamin MD MD sp3 Cindy York RN RN ko1 Kassandra Thompson mg5
--- NOTE | 2023-03-14 17:45 | EDPHYS ---
Physician Documentation [facility] Name: Joe Singh Age: 72 yrs Sex: Male : 1950 Arrival Date: 03/14/2023 Time: 14:15 Bed 5 Private MD: ED Physician Whitney Benjamin HPI: 03/14 15:27 This 72 yrs old Male presents to ER via Wheelchair with complaints of left foot sp3 swelling and infection. 15:27 72-year-old male with a history of COPD, CHF, paroxysmal A-fib not on anticoagulants, sp3 hypertension now presents to the ED with left foot swelling, erythema and pain. Patient's PCP Dr. Benjamin in the community started patient on Augmentin 3 days ago and Bactrim today on follow-up. She referred patient to the ED for evaluation of ultrasound and repeat lab work to see whether patient needs inpatient IV antibiotics versus continued outpatient care. Patient does endorse that the swelling and erythema has somewhat improved over the last 24 hour but again his PCP wanted the ultrasound as well so that is why he is here. He denies swelling past mid siegel level. He denies swelling in the knee and upper part of the extremity. He denies fever, URI symptoms, headache, chest pain, shortness of breath, abdominal pain, nausea, vomiting, diarrhea, syncope, near syncope, focal neurological deficit, or any other signs or symptoms on ROS at this time. He also denies injury or trauma to that left lower extremity.. Historical: - PMHx: 14:45 Atrial fibrillation; Chronic obstructive lung disease; Congestive heart failure; ld1 neuropathy; - Immunization history:: Adult Immunizations up to date. - Social history:: Smoking status: Patient denies any tobacco usage or history of. ROS: 15:30 Constitutional: Negative for fever, chills, and weight loss, Eyes: Negative for injury, sp3 pain, redness, and discharge, Neck: Negative for injury, pain, and swelling, Cardiovascular: Negative for chest pain, palpitations, and edema, Respiratory: Negative for shortness of breath, cough, wheezing, and pleuritic chest pain, Abdomen/GI: Negative for abdominal pain, nausea, vomiting, diarrhea, and constipation, Back: Negative for injury and pain, Neuro: Negative for headache, weakness, numbness, tingling, and seizure, Psych: Negative for depression, anxiety, suicide ideation, homicidal ideation, and hallucinations, Allergy/Immunology: Negative for hives, rash, and allergies, Endocrine: Negative for neck swelling, polydipsia, polyuria, polyphagia, and marked weight changes, 15:30 All other systems are negative, Exam: 15:30 Constitutional: This is a well developed, well nourished patient who is awake, alert, sp3 and in no acute distress. Head/Face: Normocephalic, atraumatic. Eyes: Pupils equal round and reactive to light, extra-ocular motions intact. Lids and lashes normal. Conjunctiva and sclera are non-icteric and not injected. Cornea within normal limits. Periorbital areas with no swelling, redness, or edema. Neck: Trachea midline, no thyromegaly or masses palpated, and no cervical lymphadenopathy. Supple, full range of motion without nuchal rigidity, or vertebral point tenderness. No Meningismus. Chest/axilla: Normal chest wall appearance and motion. Nontender with no deformity. No lesions are appreciated. Cardiovascular: Regular rate and rhythm with a normal S1 and S2. No gallops, murmurs, or rubs. Normal PMI, no JVD. No pulse deficits. Respiratory: Lungs have equal breath sounds bilaterally, clear to auscultation and percussion. No rales, rhonchi or wheezes noted. No increased work of breathing, no retractions or nasal flaring. Abdomen/GI: Soft, non-tender, with normal bowel sounds. No distension or tympany. No guarding or rebound. No evidence of tenderness throughout. Back: No spinal tenderness. No costovertebral tenderness. Full range of motion. Neuro: Awake and alert, GCS 15, oriented to person, place, time, and situation. Cranial nerves II-XII grossly intact. Motor strength 5/5 in all extremities. Sensory grossly intact. Cerebellar exam normal. Normal gait. Psych: Awake, alert, with orientation to person, place and time. Behavior, mood, and affect are within normal limits. 15:30 Musculoskeletal/extremity: Patient has erythema to the superior aspect of the foot along with really dry and scaly skin. Swelling extends from the proximal part of the foot into the lower part of the distal lower extremity. No calf tenderness or swelling noted. No popliteal pain or swelling noted. No pain or tenderness anywhere on the upper extremity either. Distal pulses are normal. Patient has full range of motion and normal neurological exam as well.. Vital Signs: 14:43 BP 171 / 86; Pulse 66; Resp 18; Temp 98(O); Pulse Ox 93% on 2 lpm NC; Weight 90.72 kg; ph Height 6 ft. 0 in. ; 15:36 BP 123 / 81; Pulse 62; Resp 18; Pulse Ox 96% on R/A; ld1 16:54 BP 157 / 76; Pulse 61; Resp 18; Pulse Ox 97% on R/A; ld1 17:30 BP 145 / 77; Pulse 58; Resp 16; Pulse Ox 98% ; ko1 14:43 Body Mass Index 27.12 (90.72 kg, 182.88 cm) ph 14:43 uses oxygen at home, 2L NC ph MDM: 14:32 Patient medically screened. sp3 15:32 Data reviewed: vital signs, nurses notes, lab test result(s), radiologic studies. ED sp3 course: 72-year-old male with left foot cellulitis versus lower extremity DVT. Will obtain blood work and ultrasound to differentiate. Patient has normal vital signs and cellulitis does not look extreme. Probable discharge on continued Augmentin and Bactrim that he is on by his PCP and follow back up with them pending no DVT and no extreme abnormalities on his CBC and chemistries. Patient is okay with this plan and all questions have been answered.. 17:43 ED course: Blood work reviewed demonstrates no significant abnormality. Creatinine is sp3 at baseline range based on past records. Ultrasound demonstrates no DVT. We will discharge patient home with instructions to continue his Augmentin and Bactrim that has already been prescribed and he has in his possession. Follow-up with his PCP.. 03/14 15:09 Order name: CBC with Diff; Complete Time: 16:57 sp3 03/14 15:09 Order name: CMP; Complete Time: 16:10 sp3 03/14 16:57 Order name: CBC Smear Scan; Complete Time: 16:57 EDMS 03/14 15:09 Order name: US Extremity Venous Unilateral Ltd; Complete Time: 17:36 sp3 03/14 15:09 Order name: IV Saline Lock; Complete Time: 15:37 sp3 03/14 15:09 Order name: Labs collected and sent; Complete Time: 15:37 sp3 Administered Medications: No medications were administered Disposition Summary: 03/14/23 17:44 Discharge Ordered Notes: Location: Home sp3 Condition: Stable sp3 Diagnosis - Cellulitis, unspecified sp3 Followup: sp3 - With: Private Physician - When: Upon discharge from the Emergency Department - Reason: Continuance of care Discharge Instructions: - Discharge Summary Sheet sp3 - Cellulitis, Adult sp3 Forms: - Medication Reconciliation Form sp3 - Thank You Letter sp3 - Antibiotic Education sp3 - Prescription Opioid Use sp3 - Patient Portal Instructions sp3 - Leadership Thank You Letter sp3 Signatures: Dispatcher [employer] Sarha Foster RN RN ld1 Whitney Benjamin MD MD sp3
[2023-03-14 20:47] VITALS: TEMP 98
[2023-03-14 21:07] VITALS: BP 145/77; O2SAT 98
== END ==
LOC: ER 14:15
DX: L03.116 Cellulitis of left lower limb (principal)
CPT/HCPCS: 36415; 80053; 85025; 93971; 99284

== ENCOUNTER → 2023-03-21 | Emergency (ER) | payer OTHER ==
[~2023-03-21] MED LIST: ACETAMINOPHEN 325 MG TABLET PO PRN; ALBUTEROL 2.5 MG/3 ML NEB SOL ONE; ATROPINE SULF 1 MG/10 ML SYR IV ONE; CALCIUM GLUCONATE 1 GM IVPB 1 GM/50 ML BAG IV ONE; CALCIUM GLUCONATE 1 GM IVPB 2 GM/100 ML BAG IV ONE; CEFEPIME 2 GM VIAL ONE; D10W 250 ML IV ONE; ETOMIDATE 20 MG/10 ML VIAL IV ONE; HEPARIN 5000 UNIT/ML 1 ML VIAL SQ SCH; INSULIN REGULAR (HUMAN) 100 UNIT/ML ONE; IPRATROPIUM BROM 0.5MG/2.5ML ONE; METHYLPREDNISOLONE 125 MG INJ ONE; NA CHLORIDE 0.9% 1,000 ML ONE; NA CHLORIDE 0.9% 100 ML ONE; NOREPINEPHRINE BITARTRATE/D5W 4 MG/250 ML BAG IV ONE; ONDANSETRON 4 MG/2 ML VIAL IV PRN; ROCURONIUM 50 MG/5 ML VIAL IV ONE; SODIUM ZIRCONIUM CYCLOSILICATE 10 GM/PKT PO ONE; propofoL 1,000 MG/100 ML VIAL IV ONE
[2023-03-21 16:25] LABS: Absolute Lymphocytes (CBC) 0.8 K/uL (0.7-4.9); Hematocrit 27.9 % (39.6-49.0); Lymphocytes % 12.1 % (15.3-44.8); MCV 94.7 fL (80-100); MPV 8.1 fL (7.6-11.3); Platelets 195 thou/uL (152-406); RBC Red Blood Cell Count 2.95 M/uL (4.33-5.43)
[2023-03-21 16:42] LABS: Magnesium 3.7 mg/dL (1.6-2.4); Troponin High Sensitivity 17.7 pg/mL (<58.9)
[2023-03-21 16:47] LABS: Potassium 6.2 mEq/L (3.5-5.1)
--- NOTE | 2023-03-21 17:25 | RAD REPORT ---
EXAM DESCRIPTION: Luz Single View03/21/2023 4:23 pm CLINICAL HISTORY: Chest pain COMPARISON: February 2023 FINDINGS: Mild bilateral pulmonary opacities. Stable left upper lobe nodule Heart is moderately enlarged. Small left pleural effusion IMPRESSION: Mild bilateral pulmonary opacities may represent pulmonary edema or pneumonia
[2023-03-21 17:45] LABS: Arterial Blood Carboxyhemoglob 0.8 % (0-1.5); Blood Gas Oxyhemoglobin 95.1 % (94-97); Blood O2 Saturation 97.9 % (92-98.5)
[2023-03-21 17:47] LABS: Blood O2 Saturation 98.2 % (92-98.5)
[2023-03-21 17:48] VITALS: O2SAT 100
--- NOTE | 2023-03-21 18:47 | RAD REPORT ---
EXAM DESCRIPTION: CT - Head Brain Wo Cont - 03/21/2023 6:37 pm CLINICAL HISTORY: Alteration of awareness/confusion COMPARISON: December 2022 TECHNIQUE: Computed axial tomography of the head was obtained. IV contrast was not requested. All CT scans are performed using dose optimization technique as appropriate and may include automated exposure control or mA/KV adjustment according to patient size. FINDINGS: An intracranial bleed is not seen The ventricles are normal in caliber No extra-axial fluid collection is noted. No significant hypodensity within the brain Fluid within the sinuses/ mastoids is not seen. IMPRESSION: No acute intracranial abnormality is seen If patient's symptoms persist MRI of the brain would be recommended
[2023-03-21 18:59] LABS: Arterial Blood Carboxyhemoglob 0.7 % (0-1.5); Blood Gas Oxyhemoglobin 93.8 % (94-97); Blood O2 Saturation 96.6 % (92-98.5)
--- NOTE | 2023-03-21 19:11 | EDPHYS ---
Physician Documentation [facility] Name: Joe Singh Age: 72 yrs Sex: Male : 1950 Arrival Date: 03/21/2023 Time: 15:59 Bed 4 Private MD: ED Physician Whitney Benjamin HPI: 03/21 19:47 This 72 yrs old Male presents to ER via EMS with complaints of Altered Mental Status. ci 19:47 Patient is a 72-year-old male with PMH A-fib, COPD on 4 L home O2, CHF who presents ci with altered mental status, respiratory failure. Patient's neighbor found him confused and altered. Unable patient does not like wearing his oxygen. Upon EMS arrival patient was hypoxic with O2 sat in the 50s and was placed on a nonrebreather. Noted to be bradycardic with HR in the 50s.. Historical: - Allergies: 16:03 No Known Allergies; kc6 - PMHx: 16:03 Atrial fibrillation; Chronic obstructive lung disease; Congestive heart failure; kc6 neuropathy; - Immunization history:: Adult Immunizations unknown. - Social history:: Smoking status: unknown. - History obtained from: EMS. ROS: 19:47 Unable to obtain ROS due to altered mental status, patient being uncooperative, ci Exam: 19:47 Head/Face: Normocephalic, atraumatic. Eyes: Pupils equal round and reactive to light, ci extra-ocular motions intact. Lids and lashes normal. Conjunctiva and sclera are non-icteric and not injected. Cornea within normal limits. Periorbital areas with no swelling, redness, or edema. ENT: Nares patent. No nasal discharge, no septal abnormalities noted. Tympanic membranes are normal and external auditory canals are clear. Oropharynx with no redness, swelling, or masses, exudates, or evidence of obstruction, uvula midline. Mucous membranes moist. Neck: Trachea midline, no thyromegaly or masses palpated, and no cervical lymphadenopathy. Supple, full range of motion without nuchal rigidity, or vertebral point tenderness. No Meningismus. Chest/axilla: Normal chest wall appearance and motion. Nontender with no deformity. No lesions are appreciated. 19:47 Constitutional: The patient appears lethargic, in obvious distress, obviously ill, 19:47 Head/face: Exam is negative for 19:47 Cardiovascular: Rate: bradycardic, Rhythm: regular, irregular, Pulses: no pulse deficits are appreciated, Heart sounds: normal, Edema: 2+ edema to level of left midcalf, left ankle, right midcalf and right ankle, JVD: is not appreciated, 19:47 ECG was reviewed by the Attending Physician. 19:47 Abdomen/GI: Soft, non-tender, with normal bowel sounds. No distension or tympany. No ci guarding or rebound. No evidence of tenderness throughout. Back: No spinal tenderness. No costovertebral tenderness. Full range of motion. 19:47 Respiratory: moderate respiratory distress is noted, Respirations: labored breathing, accessory muscle usage, intercostal retractions, Breath sounds: decreased breath sounds, 19:47 Skin: Skin tear to left elbow and left forearm. Left elbow is nontender to palpation.. Vital Signs: 16:01 BP 96 / 52; Pulse 37; Resp 16 S; Pulse Ox 95% on Non-rebreather mask; kc6 17:00 BP 86 / 64; Pulse 42; Resp 18 S; Pulse Ox 100% on BiPAP; kc6 17:11 BP 97 / 68; Pulse 42; Resp 18 S; Pulse Ox 100% on BiPAP; kc6 18:15 BP 91 / 80; Pulse 42; Resp 19 S; Pulse Ox 100% on BiPAP; kc6 19:00 BP 92 / 74; Pulse 49; Resp 24 S; Pulse Ox 99% on BiPAP; ha1 19:35 BP 122 / 66; Pulse 47; Resp 22 S; Temp 97.9(TE); Pulse Ox 100% on BiPAP; Weight 96.62 ha1 kg; 20:15 BP 133 / 98; Pulse 43; Resp 14; Pulse Ox 100% on BiPAP; rv1 21:15 BP 123 / 70; Pulse 69; Resp 16; Pulse Ox 100% on ETT vent; rv1 21:45 BP 148 / 81; Pulse 47; Resp 21 S; Pulse Ox 100% on ETT vent; ha1 22:04 BP 151 / 81; Pulse 47; Resp 17; Pulse Ox 100% on ETT vent; rv1 22:15 BP 153 / 74; Pulse 45; Resp 17 S; Pulse Ox 100% on ETT vent; ha1 22:30 BP 145 / 71; Pulse 43; Resp 17 S; Pulse Ox 100% on R/A; ha1 22:48 BP 149 / 73; Pulse 43; Resp 18 A; Pulse Ox 100% on ETT vent; ha1 23:05 BP 140 / 73; Pulse 77; Resp 18 A; Pulse Ox 100% on ETT vent; ha1 23:20 BP 137 / 69; Pulse 43; Resp 17 S; Pulse Ox 100% on R/A; ha1 23:36 BP 137 / 70; Pulse 43; Resp 17 A; Pulse Ox 100% on ETT vent; ha1 23:45 BP 135 / 72; Pulse 43; Resp 18 S; Pulse Ox 100% on R/A; ha1 03/22 00:00 BP 131 / 69; Pulse 47; Resp 20 A; Pulse Ox 100% on ETT vent; ha1 00:15 BP 133 / 71; Pulse 47; Resp 19 A; Pulse Ox 100% on ETT vent; ha1 00:30 BP 133 / 70; Pulse 46; Resp 17 A; Pulse Ox 100% on ETT vent; ha1 MDM: 03/21 16:04 Patient medically screened. ci 19:47 Differential diagnosis: asthma, CHF exacerbation, Chronic Obstructive Pulmonary Disease ci Myocardial Infarction pneumonia, Pneumothorax pulmonary edema, Pulmonary Embolism reactive airway disease, Sepsis. Data reviewed: vital signs, nurses notes, old medical records, lab test result(s), EKG, radiologic studies. ED course: Presents for altered mental status, respiratory failure. Patient will noted to be in significant respiratory acidosis, initial ABG shows pH of 7.1, pCO2 of 96 for patient was placed on BiPAP, repeat ABG improved to pH 7 point, pCO2 82. CT obtained, unremarkable. Patient noted to be bradycardic, was given atropine, placed on pacer pads. Patient noted to be hyperkalemic with potassium of 6.2, giving calcium gluconate, insulin. Patient has DIA on CKD, creatinine 6.8. Patient's blood pressure soft, started on maintenance fluid. Discussed case with hospitalist who accepted patient for admission. Admitted in stable condition.. 19:47 ED course: Critical care time: I have personally spent 60 minutes of critical care ci time, exclusive of time spent on any procedures in evaluation and management of this critically ill patient's condition of respiratory failure, hyperkalemia, acute kidney injury. I provided the following critical care treatment hyperkalemia treatment, hemodynamic monitoring, ABG interpretation, noninvasive ventilator management.. 20:59 ED course: Repeat ABG with no significant change, decision made to intubate. Discussed ci with hospitalist. As we do not have any ICU beds, patient will require transfer.. 21:53 ED course: Patient taken over by me from daytime physician. Patient is a 72-year-old sp3 male with COPD, CHF, atrial fibrillation who presents with respiratory failure and flu positive. Patient failed BiPAP treatment with only mild improvement in CO2. Patient was subsequently intubated by me with 8 oh ET tube and glide scope. Right ultrasound-guided internal jugular central venous triple-lumen catheter was also placed using sterile fashion. Orogastric tube was placed by nurse. Chest x-ray demonstrates all 3 objects in appropriate position. Propofol and Levophed also started due to hypotension and bradycardia. Patient has an DIA on top of the CKD with potassium at 6.2. No widening of EKG noted patient received calcium, insulin and glucose, and albuterol prior to my taking over care. I have added 2 additional grams of calcium gluconate. We will monitor rhythm and vital signs. Cefepime 2 g were also added along with blood cultures. Patient will be transferred to [facility] for ICU care.. 03/21 16:05 Order name: ABG; Complete Time: 17:54 ci 03/21 16:05 Order name: Basic Metabolic Panel; Complete Time: 16:48 ci 03/21 16:48 Interpretation: Abnormal: K 6.2; CRE 6.18. ci 03/21 16:05 Order name: CBC with Diff; Complete Time: 20:01 ci 03/21 16:05 Order name: Magnesium; Complete Time: 17:01 ci 03/21 16:05 Order name: NT PRO-BNP; Complete Time: 16:48 ci 03/21 16:48 Interpretation: Abnormal: NT PRO-BNP 3699. ci 03/21 16:05 Order name: Troponin HS; Complete Time: 17:01 ci 03/21 16:05 Order name: COVID-19 SARS RT PCR; Complete Time: 17:54 ci 03/21 16:05 Order name: Flu; Complete Time: 16:48 ci 03/21 16:48 Interpretation: Abnormal: FLUA FLU A ----- POSITIVE for FLU A protein antigen. ci 03/21 17:02 Order name: ABG; Complete Time: 17:54 ci 03/21 18:20 Order name: ABG; Complete Time: 19:04 ci 03/21 19:54 Order name: CBC Smear Scan; Complete Time: 20:01 EDMS 03/21 19:59 Order name: CBC with Automated Diff EDMS 03/21 19:59 Order name: Comprehensive Metabolic Panel EDMS 03/21 19:59 Order name: Phosphorus EDMS 03/21 19:59 Order name: Phosphorus EDMS 03/21 19:59 Order name: Phosphorus EDMS 03/21 20:32 Order name: ABG: ABG at 2200 ci 03/21 20:34 Order name: Glucose, Ancillary Testing; Complete Time: 20:53 EDMS 03/21 21:31 Order name: ABG Arterial Blood Gas; Complete Time: 21:51 EDMS 03/21 21:50 Order name: Blood Culture Adult (2) sp3 03/22 00:05 Order name: ABG Arterial Blood Gas EDDE 03/21 16:05 Order name: XRAY Chest (1 view); Complete Time: 17:54 ci 03/21 16:23 Order name: BIPAP ci 03/21 16:23 Order name: CT Head Brain wo Cont; Complete Time: 19:04 ci 03/21 19:08 Interpretation: No acute disease: Per Radiologist's finding(s): IMPRESSION: No acute ci intracranial abnormality is seen. 03/21 21:49 Order name: CXR XRAY; Complete Time: 22:29 sp3 03/21 16:05 Order name: EKG; Complete Time: 16:05 ci 03/21 19:59 Order name: CONS Physician Consult EDDE 03/21 16:05 Order name: Cardiac monitoring; Complete Time: 16:06 ci 03/21 16:05 Order name: EKG - Nurse/Tech; Complete Time: 16:09 ci 03/21 16:05 Order name: IV Saline Lock; Complete Time: 16:20 ci 03/21 16:05 Order name: Labs collected and sent; Complete Time: 16:20 ci 03/21 16:05 Order name: O2 Per Protocol; Complete Time: 16:06 ci 03/21 16:05 Order name: O2 Sat Monitoring; Complete Time: 16:06 ci 03/21 22:12 Order name: Still; Complete Time: 23:11 lg3 EC:47 Rate is 38 beats/min. Rhythm is regular. QT interval is prolonged at 578 msec. T waves ci are Flattened in lead V1. No ST changes noted. Clinical impression: Sinus bradycardia. Administered Medications: 16:37 Drug: Atropine IVP 0.5 mg IVP once Route: IVP; Site: right antecubital; 6 17:00 Follow up: Response: No adverse reaction; Cardiac rhythm changed [facility] 16:50 Drug: Calcium Gluconate IVPB 1 grams IVPB once over 60 mins; (mix in NS 100 mL) Route: kc6 IVPB; Infused Over: 60 mins; Site: right antecubital; 18:16 Follow up: Response: No adverse reaction; IV Status: Completed infusion; IV Intake: kc6 100ml 16:59 Drug: MethylPREDNISolone Sodium Succinate IM 125 mg IM once {Note: RAC IV per Dr. ANTUNEZ 6 .} Route: IM; Site: Other; 18:16 Follow up: Response: No adverse reaction kc6 17:10 Drug: DuoNeb Nebulize (3:1) (2.5 mg - 0.5 mg) 3 ml Nebulizer once Route: Nebulizer; [facility] 18:16 Follow up: Response: No adverse reaction kc6 17:10 Drug: Albuterol Inhalation 2.5 mg Inhalation once Route: Inhalation; [facility] 18:16 Follow up: Response: No adverse reaction 6 17:49 Drug: NS 0.9% IV 1000 ml IV at 125 ml/hr once Route: IV; Rate: 125 ml/hr; Site: right [facility] antecubital; 18:52 Drug: Insulin Regular Human IVP 5 units IVP once {Co-Signature: iw (Shawna Sr 6 RN).} Route: IVP; Site: right antecubital; 19:00 Follow up: Response: No adverse reaction ha1 18:53 Drug: D50W IVP 50 ml IVP once; (1 amp) Route: IVP; Site: right antecubital; 6 19:00 Follow up: Response: No adverse reaction ha1 21:14 Drug: Atropine IVP 1 mg IVP once Route: IVP; Site: left wrist; ha1 21:30 Follow up: Response: No adverse reaction ha1 21:15 Drug: Etomidate IVP 20 mg IVP once Route: IVP; Site: left wrist; ha1 21:30 Follow up: Response: No adverse reaction ha1 21:16 Drug: Rocuronium IVP 100 mg IVP once Route: IVP; Site: left wrist; ha1 21:30 Follow up: Response: No adverse reaction ha1 21:20 Drug: Calcium Gluconate IVPB 2 grams IVPB once over 60 mins; (mix in NS 100 mL) Route: ha1 IVPB; Infused Over: 60 mins; Site: left forearm; 22:00 Follow up: Response: No adverse reaction; IV Status: Completed infusion; IV Intake: ha1 100ml 22:15 Drug: Propofol IV 5 mcg/kg/min IV at calculated rate See Administration Instructions; ha1 Standard concentration 1000 mg / 100 mL; Recommended max rate 50 mcg/kg/min; Titrate 2 mcg/kg/min every 5 minutes to achieve goal (see titration policy); Goal parameter RASS score 0 to -2 Route: IV; Rate: calculated rate; Site: right subclavian; 03/22 00:30 Follow up: Response: No adverse reaction; IV Status: Infusion continued ha1 00:02 Drug: Cefepime IVPB 2 grams IVPB at 200 ml/hr once over 30 mins; (mix in NS 100 mL) ha1 Route: IVPB; Rate: 200 ml/hr; Infused Over: 30 mins; Site: right subclavian; 00:30 Follow up: Response: No adverse reaction; IV Status: Completed infusion; IV Intake: ha1 100ml 00:29 Not Given (Physician Discretion): norepinephrine0.1 mcg/kg/min IV at calculated rate ha1 See Administration Instructions; (Standard concentration 4 mg / 250 mL D5W); Recommended max rate 3 mcg/kg/min; Titrate 0.05 mcg/kg/min as often as every 5 minutes to achieve goal (see titration policy); Goal parameter MAP greater than 65 mmHg. Disposition: 03/21 19:47 Critical Care:. ci Disposition Summary: 03/21/23 22:00 Transfer Ordered Notes: Transfer Location: [facility] sp3 Reason: Higher level of care sp3 Condition: Stable(03/21/23 22:00) sp3 Problem: an acute exacerbation(03/21/23 22:00) sp3 Symptoms: have worsened(03/21/23 22:00) sp3 Accepting Physician: MASOOD(03/22/23 00:37) ha1 Diagnosis - Respiratory failure, COPD, influenza, DIA on CKD sp3 Forms: - Medication Reconciliation Form sp3 - SBAR form sp3 Critical care time excluding procedures: 19:47 Critical care time: Bedside Care: 75 minutes. Total time: 75 minutes ci Signatures: Dispatcher [employer] Regina Owens RN RN cg Kelsie Otto RN RN lg3 Whitney Benjamin MD MD sp3 Leonora Keane RN RN ha1 Olivia Beaver RN RN kc6 Ihekayyunekgeorge, Dominickzite Shawna Hayes RN Corrections: (The following items were deleted from the chart) 20:35 19:10 Intensive Care Unit ci cg 20:35 19:10 ci cg 21:34 19:10 Inpatient Admission ci lg3 21:34 19:10 [place], Favio ci lg3 21:34 19:10 Critical ci lg3 21:34 19:10 an acute exacerbation ci lg3 21:34 19:10 are unchanged ci lg3 21:34 19:10 Standard ci lg3 21:34 19:10 Acute and chronic respiratory failure with hypercapnia ci lg3 21:34 19:10 Influenza due to identified novel influenza A virus ci lg3 21:34 19:10 Hyperkalemia ci lg3 21:34 19:10 Acute kidney failure, unspecified ci lg3 21:34 20:01 Bradycardia, unspecified ci lg3 21:34 20:35 [facility] ER HOLD cg lg3 21:34 20:35 ERHOLD- cg lg3 03/22 00:37 03/21 22:00 TBD sp3 ha1
--- NOTE | 2023-03-21 19:11 | ER ---
Nurse's Notes [facility] Name: Joe Singh Age: 72 yrs Sex: Male : 1950 Arrival Date: 03/21/2023 Time: 15:59 Bed 4 Private MD: Diagnosis: Respiratory failure, COPD, influenza, DIA on CKD Presentation: 03/21 16:01 Chief complaint: EMS states: pts was found by friend to be confused and not wearing his kc6 O2. pt was 50% on RA for EMS. Coronavirus screen: At this time, the client does not indicate any symptoms associated with coronavirus-19. Ebola Screen: No symptoms or risks identified at this time. Initial Sepsis Screen: Does the patient meet any 2 criteria? Altered Mental Status. Does the patient have a suspected source of infection? No. Patient's initial sepsis screen is negative. Risk Assessment: Do you want to hurt yourself or someone else? Patient reports no desire to harm self or others. Onset of symptoms was March 21, 2023. 16:01 Method Of Arrival: EMS: [facility] kc6 16:01 Acuity: JENNY 2 kc6 Triage Assessment: 16:01 General: Appears in no apparent distress. uncomfortable, well groomed, well developed, kc6 Behavior is calm, cooperative, appropriate for age, drowsy. Pain: Denies pain. EENT: No signs and/or symptoms were reported regarding the EENT system. Neuro: Level of Consciousness is obeys commands, lethargic, Oriented to person, place, time, situation, Appropriate for age. Cardiovascular: Heart tones S1 S2 present Capillary refill < 3 seconds Rhythm is sinus bradycardia. Respiratory: Reports shortness of breath at rest on exertion Airway is patent Trachea midline Respiratory effort is even, unlabored, Respiratory pattern is regular, symmetrical. GI: No signs and/or symptoms were reported involving the gastrointestinal system. : No signs and/or symptoms were reported regarding the genitourinary system. Derm: No signs and/or symptoms reported regarding the dermatologic system. Skin is fragile, with poor turgor has skin tears on RENE upper extremeties Skin is dry, Skin is normal, Skin temperature is warm. Musculoskeletal: No signs and/or symptoms reported regarding the musculoskeletal system. Circulation, motion, and sensation intact. Capillary refill < 3 seconds, Range of motion: intact in all extremities. 19:00 Respiratory: the patient has severe shortness of breath. ha1 Historical: - Allergies: 16:03 No Known Allergies; kc6 - PMHx: 16:03 Atrial fibrillation; Chronic obstructive lung disease; Congestive heart failure; kc6 neuropathy; - Immunization history:: Adult Immunizations unknown. - Social history:: Smoking status: unknown. - History obtained from: EMS. Screenin:05 [facility] ED Fall Risk Assessment (Adult) History of falling in the last 3 months, kc6 including since admission No falls in past 3 months (0 pts) Confusion or Disorientation No (0 pts) Intoxicated or Sedated No (0 pts) Impaired Gait No (0 pts) Mobility Assist Device Used No (0 pt) Altered Elimination No (0 pt) Score/Fall Risk Level 0 - 2 = Low Risk. Abuse screen: Denies threats or abuse. Denies injuries from another. Nutritional screening: No deficits noted. Tuberculosis screening: No symptoms or risk factors identified. Assessment: 16:06 Reassessment: please see triage assessment. [facility] 16:30 Reassessment: pt moved to ER bed [address] ANTUNEZ for bipap and place on kc6 pads to prepare for potential pacing. 17:11 Reassessment: Patient appears in no apparent distress at this time. No changes from [facility] previously documented assessment. Patient and/or family updated on plan of care and expected duration. Pain level reassessed. 18:11 Reassessment: Patient appears in no apparent distress at this time. No changes from [facility] previously documented assessment. Patient and/or family updated on plan of care and expected duration. Pain level reassessed. 18:15 Reassessment: pt to CT via stretcher with non rebreather. 6 19:05 General: Appears distressed, uncomfortable, ill, obese, Behavior is agitated, restless, ha1 uncooperative. Pain: Unable to use pain scale. FLACC scale score is 0 out of 10. Neuro: Level of Consciousness is awake, lethargic, Oriented to person. Cardiovascular: Heart tones S1 S2 present Capillary refill < 3 seconds Rhythm is sinus bradycardia. Respiratory: Airway is patent Respiratory effort is labored, Respiratory pattern is tachypnea Patient placed on BiPAP: Breath sounds with wheezes bilaterally. GI: Abdomen is round non-distended. Derm: Skin is fragile, Skin is moist, Skin is normal. Musculoskeletal: Capillary refill < 3 seconds. 20:05 Reassessment: No changes from previously documented assessment. ha1 20:05 Respiratory: Airway is patent Respiratory effort is labored, Respiratory pattern is ha1 tachypnea. 21:00 Reassessment: Patient and/or family updated on plan of care and expected duration. Pain ha1 level reassessed. Informed family member on the need for intubation. 22:05 General: Appears comfortable. Neuro: Respiratory: Airway via oral intubation ha1 Respiratory effort is even, unlabored, Respiratory pattern is regular, symmetrical. 23:00 Respiratory: Airway via oral intubation Respiratory effort is even, unlabored, relaxed, ha1 Respiratory pattern is symmetrical. 23:35 Reassessment: report given to YOLANDA Arboleda. ha1 03/22 00:00 Reassessment:. Respiratory: Airway via oral intubation Respiratory effort is even, ha1 unlabored, Respiratory pattern is regular, symmetrical. Vital Signs: 03/21 16:01 BP 96 / 52; Pulse 37; Resp 16 S; Pulse Ox 95% on Non-rebreather mask; kc6 17:00 BP 86 / 64; Pulse 42; Resp 18 S; Pulse Ox 100% on BiPAP; kc6 17:11 BP 97 / 68; Pulse 42; Resp 18 S; Pulse Ox 100% on BiPAP; kc6 18:15 BP 91 / 80; Pulse 42; Resp 19 S; Pulse Ox 100% on BiPAP; kc6 19:00 BP 92 / 74; Pulse 49; Resp 24 S; Pulse Ox 99% on BiPAP; ha1 19:35 BP 122 / 66; Pulse 47; Resp 22 S; Temp 97.9(TE); Pulse Ox 100% on BiPAP; Weight 96.62 ha1 kg; 20:15 BP 133 / 98; Pulse 43; Resp 14; Pulse Ox 100% on BiPAP; rv1 21:15 BP 123 / 70; Pulse 69; Resp 16; Pulse Ox 100% on ETT vent; rv1 21:45 BP 148 / 81; Pulse 47; Resp 21 S; Pulse Ox 100% on ETT vent; ha1 22:04 BP 151 / 81; Pulse 47; Resp 17; Pulse Ox 100% on ETT vent; rv1 22:15 BP 153 / 74; Pulse 45; Resp 17 S; Pulse Ox 100% on ETT vent; ha1 22:30 BP 145 / 71; Pulse 43; Resp 17 S; Pulse Ox 100% on R/A; ha1 22:48 BP 149 / 73; Pulse 43; Resp 18 A; Pulse Ox 100% on ETT vent; ha1 23:05 BP 140 / 73; Pulse 77; Resp 18 A; Pulse Ox 100% on ETT vent; ha1 23:20 BP 137 / 69; Pulse 43; Resp 17 S; Pulse Ox 100% on R/A; ha1 23:36 BP 137 / 70; Pulse 43; Resp 17 A; Pulse Ox 100% on ETT vent; ha1 23:45 BP 135 / 72; Pulse 43; Resp 18 S; Pulse Ox 100% on R/A; ha1 03/22 00:00 BP 131 / 69; Pulse 47; Resp 20 A; Pulse Ox 100% on ETT vent; ha1 00:15 BP 133 / 71; Pulse 47; Resp 19 A; Pulse Ox 100% on ETT vent; ha1 00:30 BP 133 / 70; Pulse 46; Resp 17 A; Pulse Ox 100% on ETT vent; ha1 ED Course: 03/21 16:01 Patient arrived in ED. kc6 16:01 Arm band placed on. kc6 16:03 Triage completed. kc6 16:04 Sunshine Salazar is Attending Physician. ci 16:05 Patient has correct armband on for positive identification. Placed in gown. Bed in low kc6 position. Call light in reach. Side rails up X2. Client placed on continuous cardiac and pulse oximetry monitoring. NIBP monitoring applied. animal cruelty investigation supervisor on. 16:05 Oxygen administration via non-rebreather mask \T\ 15L/min. kc6 16:06 Olivia Beaver, YOLANDA is Primary Nurse. kc6 16:19 Inserted saline lock: 22 gauge in right forearm, using aseptic technique. me1 16:19 Missed attempt(s): 22 gauge in right wrist. me1 16:25 XRAY Chest (1 view) In Process Unspecified. EDMS 18:39 CT Head Brain wo Cont In Process Unspecified. EDMS 19:00 Report given to Leonora Keane RN. kc6 19:09 Favio Fuentes MD is Hospitalizing Provider. ci 20:56 Attending Physician role handed off by Sunshine Salazar sp3 20:56 Whitney Benjamin MD is Attending Physician. sp3 21:17 Assisted provider with intubation using 7.0 mm ETT via oral route. ET tube secured at ha1 22cm at the lips. Set up intubation tray. Intubated by Whitney Benjamin MD Placement verified by auscultating bilateral breath sounds, CXR. 21:25 Assisted provider with central line placement. Set up central line tray. Triple lumen ha1 line placed in right subclavian. Line placed by Whitney Benjamin MD Placement verified by CXR, blood return, Dressed with Tape, Tegaderm, Patient tolerated well. Was handwashing/sanitizing done immediately prior to procedure? Yes. Was procedure site sterilized? Yes, with Was the site allowed to dry? Yes. During the procedure, did the Practitioner(s) maintain a sterile field? Yes. Was blood aspirated from each lumen? Yes. 22:02 initiated transfer with Cherelle at [facility]. pm6 22:10 Still cath inserted, using sterile technique, 16 Fr., by de, balloon inflated, urine ha1 specimen collected. 22:20 CXR XRAY In Process Unspecified. EDMS 22:[address] Armando Reddy at [facility] bed # [id number]. pm6 23:45 Intitiated transfer with [facility] ambulance. pm6 01 00:12 [facility] ambulance arrived for pt transfer. pm6 00:31 Provided Education on: family members on need for intubation . ha1 00:31 Patient transferred, IV remains in place. ha1 Administered Medications: 03/21 16:37 Drug: Atropine IVP 0.5 mg IVP once Route: IVP; Site: right antecubital; kc6 17:00 Follow up: Response: No adverse reaction; Cardiac rhythm changed kc6 16:50 Drug: Calcium Gluconate IVPB 1 grams IVPB once over 60 mins; (mix in NS 100 mL) Route: kc6 IVPB; Infused Over: 60 mins; Site: right antecubital; 18:16 Follow up: Response: No adverse reaction; IV Status: Completed infusion; IV Intake: kc6 100ml 16:59 Drug: MethylPREDNISolone Sodium Succinate IM 125 mg IM once {Note: RAC IV per Dr. TULIO [id number] .} Route: IM; Site: Other; 18:16 Follow up: Response: No adverse reaction kc6 17:10 Drug: DuoNeb Nebulize (3:1) (2.5 mg - 0.5 mg) 3 ml Nebulizer once Route: Nebulizer; [facility] 18:16 Follow up: Response: No adverse reaction kc6 17:10 Drug: Albuterol Inhalation 2.5 mg Inhalation once Route: Inhalation; 6 18:16 Follow up: Response: No adverse reaction kc6 17:49 Drug: NS 0.9% IV 1000 ml IV at 125 ml/hr once Route: IV; Rate: 125 ml/hr; Site: right [facility] antecubital; 18:52 Drug: Insulin Regular Human IVP 5 units IVP once {Co-Signature: iw (Shawna Sr 6 RN).} Route: IVP; Site: right antecubital; 19:00 Follow up: Response: No adverse reaction ha1 18:53 Drug: D50W IVP 50 ml IVP once; (1 amp) Route: IVP; Site: right antecubital; [facility] 19:00 Follow up: Response: No adverse reaction ha1 21:14 Drug: Atropine IVP 1 mg IVP once Route: IVP; Site: left wrist; ha1 21:30 Follow up: Response: No adverse reaction ha1 21:15 Drug: Etomidate IVP 20 mg IVP once Route: IVP; Site: left wrist; ha1 21:30 Follow up: Response: No adverse reaction ha1 21:16 Drug: Rocuronium IVP 100 mg IVP once Route: IVP; Site: left wrist; ha1 21:30 Follow up: Response: No adverse reaction ha1 21:20 Drug: Calcium Gluconate IVPB 2 grams IVPB once over 60 mins; (mix in NS 100 mL) Route: ha1 IVPB; Infused Over: 60 mins; Site: left forearm; 22:00 Follow up: Response: No adverse reaction; IV Status: Completed infusion; IV Intake: ha1 100ml 22:15 Drug: Propofol IV 5 mcg/kg/min IV at calculated rate See Administration Instructions; ha1 Standard concentration 1000 mg / 100 mL; Recommended max rate 50 mcg/kg/min; Titrate 2 mcg/kg/min every 5 minutes to achieve goal (see titration policy); Goal parameter RASS score 0 to -2 Route: IV; Rate: calculated rate; Site: right subclavian; 03/22 00:30 Follow up: Response: No adverse reaction; IV Status: Infusion continued ha1 00:02 Drug: Cefepime IVPB 2 grams IVPB at 200 ml/hr once over 30 mins; (mix in NS 100 mL) ha1 Route: IVPB; Rate: 200 ml/hr; Infused Over: 30 mins; Site: right subclavian; 00:30 Follow up: Response: No adverse reaction; IV Status: Completed infusion; IV Intake: ha1 100ml 00:29 Not Given (Physician Discretion): norepinephrine0.1 mcg/kg/min IV at calculated rate ha1 See Administration Instructions; (Standard concentration 4 mg / 250 mL D5W); Recommended max rate 3 mcg/kg/min; Titrate 0.05 mcg/kg/min as often as every 5 minutes to achieve goal (see titration policy); Goal parameter MAP greater than 65 mmHg. Medication: 00:31 VIS not applicable for this client. ha1 Intake: 03/21 18:16 IV: 100ml; Total: 100ml. kc6 22:00 IV: 100ml; Total: 200ml. ha1 03/22 00:30 IV: 100ml; Total: 300ml. ha1 Outcome: 03/21 19:10 Decision to Hospitalize by Provider. ci 22:00 ER care complete, transfer ordered by . sp3 03/22 00:29 Transferred by ground EMS Transfer form completed. X-rays sent w/ patient. Note: [facility] [address] Condition: stable Instructed on 00:37 Patient left the ED. 1 Signatures: Dispatcher [employer] EDMS Whitney Benjamin MD MD sp3 Leonora Keane, RN RN ha1 Olivia Beaver RN RN kc6 Nova Vigil rv1 Carol Bermudez, RN RN de1 Sunshine Salazar Megan pm6 Shawna Sr RN iw Corrections: (The following items were deleted from the chart) 03/21 16:04 16:01 BP 96 / 52; Pulse 37bpm; Resp 16bpm; Spontaneous; kc6 kc6 21:54 19:35 BP 122 / 66; Pulse 47bpm; Resp 22bpm; Spontaneous; Pulse Ox 100% BiPAP; ha1 ha1 22:32 21:16 Etomidate IVP 20 mg IVP in left wrist ha1 ha1 23:59 20:44 initiated transfer with Cherelle at [facility] pm6 pm6
[2023-03-21 19:53] LABS: Blood Morphology Comment NOT SEEN (NOT SEEN); Platelet Estimate ADEQ; White Blood Cell Scan OK (OK)
--- NOTE | 2023-03-21 19:53 | P.HP ---
Certification for Inpatient Patient admitted to: Inpatient With expected LOS: >2 Midnights Practitioner: I am a practitioner with admitting privileges, knowledge of patient current condition, hospital course, and medical plan of care. Services: Services provided to patient in accordance with Admission requirements found in Title 42 Section 412.3 of the Code of Federal Regulations Patient History Date of Service: 03/21/23 Allergies No Known Allergies Allergy (Verified 12/14/22 23:09) Home Medications: Amlodipine Besylate 10 mg PO DAILY 12/16/22 Arformoterol Tartrate 15 mcg IH BID 12/16/22 Budesonide [Pulmicort*] 0.5 mg NEB BID 12/16/22 Bumetanide 0.5 mg PO DAILY 12/16/22 Ergocalciferol (Vitamin D2) [Vitamin D2] 50,000 unit PO EVERY 7TH DAY 12/16/22 Ipratropium/Albuterol Sulfate [Iprat-Albut 0.5-3(2.5) mg/3 ml] 3 ml IH Q6HR 12/16/22 Levothyroxine Sodium [Synthroid] 150 mcg PO DAILY 12/16/22 Magnesium Oxide [Mag 0X*] 400 mg PO DAILY 12/16/22 Oxymetazoline HCl [Afrin] 15 ml IN QOD QID 12/16/22 Fluticasone/Umeclidin/Vilanter [Trelegy Ellipta 100-62.5-25] 1 each IH DAILY 30 Days #30 aero 12/17/22 acetaZOLAMIDE [Diamox*] 250 mg PO DAILY #30 tab 12/18/22 Aspirin Chewable [Aspirin Chewable*] 81 mg PO DAILY 02/03/23 Atorvastatin Calcium [Lipitor] 80 mg PO BEDTIME 02/03/23 Famotidine [Pepcid*] 20 mg PO DAILY 02/03/23 Finasteride [Proscar*] 5 mg PO DAILY 02/03/23 Furosemide [Lasix*] 20 mg PO BIDL 02/03/23 Quetiapine Fumarate [Seroquel] 25 mg PO BID 02/03/23 Sodium Bicarbonate 1,300 mg PO BID 02/03/23 methocarbamoL [Methocarbamol] 1 tab PO Q8HP PRN 02/03/23 Hydrocodone/Acetaminophen [Hydrocodone-Acetamin 5-325 mg] 1 each PO Q12H PRN #10 tab 02/05/23 Ferrous Sulfate [Feosol] 325 mg PO DAILY 30 Days #30 tab 02/22/23 predniSONE [Prednisone] 20 mg PO BID 4 Days #8 tab 02/22/23 - Past Medical/Surgical History Diabetic: Yes -: Diastolic CHF -: DM II -: CKD 4 with Proteinuria (Dr. Garsia/ Dr. Hoffman) -: Afib -: Obesity hypoventilation syndrome -: Advanced COPD -: appendectomy -: Neck surgery 2013 -: Left knee surgery Psychosocial/ Personal History: Lives at home with family - Family History Father -: Heart disease, Liver disease Notes: Alcoholic Mother -: Heart disease, Hypertension, Diabetes Sister -: Heart disease Notes: MT Brother -: Heart disease Notes: MT, CHF older sister -: Heart disease, Kidney disease - Social History Alcohol use: No CD- Drugs: No Caffeine use: Yes Physical Examination - Vital Signs Pulse: 46 Pulse Ox (%): 100 - Studies Laboratory Data (last 24 hrs) 03/21/23 03/21/23 16:14 16:14 WBC 6.20 Hgb 9.1 L Hct 27.9 L Plt Count 195 Sodium 133 L Potassium 6.2 H* BUN 80 H Creatinine 6.18 H Glucose 136 H Magnesium 3.7 H Microbiology Data (last 24 hrs): 03/21/23 16:09 Nasopharnyx Influenza Type A Antigen Screen - Final 03/21/23 16:09 Nasopharnyx Influenza Type B Antigen Screen - Final Assessment and Plan - Advance Directives Does patient have a Living Will: No Does patient have a Durable POA for Healthcare: No
[2023-03-21 21:30] LABS: Blood O2 Saturation 97.4 % (92-98.5)
[2023-03-21 21:31] LABS: Arterial Blood Carboxyhemoglob 0.7 % (0-1.5); Blood Gas Oxyhemoglobin 94.6 % (94-97)
--- NOTE | 2023-03-21 22:25 | RAD REPORT ---
EXAM DESCRIPTION: Luz Single View03/21/2023 10:18 pm CLINICAL HISTORY: Device placement endotracheal tube placement IMPRESSION: An endotracheal tube has been inserted with its tip 5 millimeters above the top of the a ortic arch. Nasogastric tube within the gastric fundus. Central venous line with its tip in the superior vena cava. No pneumothorax
[2023-03-22 00:04] LABS: Blood O2 Saturation 97.7 % (92-98.5)
[2023-03-22 04:39] VITALS: TEMP 97.9
[2023-03-22 04:53] VITALS: BP 133/70
--- NOTE | 2023-03-25 17:06 | EKG ---
Test Date: 2023-03-21 Test Time: 16:12:09 Wrist Hemmer: GRISEL MEASUREMENT RESULTS: Intervals: Rate: 38 CT: 190 QRSD: 102 QT: 578 QTc: 459 Crockett: P: 77 CT: 190 QRS: 90 T: 84 INTERPRETIVE STATEMENTS: Marked sinus bradycardia with sinus arrhythmia Rightward axis Incomplete right bundle branch block Nonspecific T wave abnormality Abnormal ECG Compared to ECG 02/20/2023 14:15:48 Right-axis deviation now present Incomplete right bundle-branch block now present Sinus rhythm no longer present Prolonged QT interval no longer present T-wave abnormality still present Electronically Signed On 03-25-23 16:55:52 WING MAILER MACHINE OPERATOR by Khang Guerrier
== END ==
LOC: ER 15:59 → ERHOLD 19:53 → UNDOADMIN 19:53
PROC: 05HM33Z Insertion of Infusion Device into Right Internal Jugular Vein, Percutaneous Approach (ICD-10-PCS; principal; 2023-03-21)
PROC: B513ZZA Fluoroscopy of Right Jugular Veins, Guidance (ICD-10-PCS; 2023-03-21)
DX: J96.91 Respiratory failure, unspecified with hypoxia (principal); J09.X2 Influenza due to identified novel influenza A virus with other respiratory manifestations; N17.9 Acute kidney failure, unspecified; R00.1 Bradycardia, unspecified; I95.9 Hypotension, unspecified; I48.91 Unspecified atrial fibrillation; N18.9 Chronic kidney disease, unspecified; J44.9 Chronic obstructive pulmonary disease, unspecified; I50.9 Heart failure, unspecified; Z99.81 Dependence on supplemental oxygen; Z11.52 Encounter for screening for COVID-19
CPT/HCPCS: 36558; 77001; 93005; 87040; 85025; 80048; 36415; 83735; 82947; 84484; 83880; 87635; 87804 ×2; 70450; 71045 ×2; 94640; 82805 ×4; 31500; 51702; 96372; 99291; 36600 ×2; 94002; 94660; J1815; J0612 ×2; J0461 ×2; J7613 ×2; J7644; J2930; J7030

== ENCOUNTER 2023-06-10 10:59 | Inpatient (IN) | payer OTHER ==
[2023-06-10] MEDS ORDERED: METHYLPREDNISOLONE 125 MG INJ ONE (11:12)
[2023-06-10] MEDS ORDERED: LEVALBUTEROL 1.25 MG/3 ML NEB ONE (11:12)
--- NOTE | 2023-06-10 11:54 | RAD REPORT ---
EXAM DESCRIPTION: RADChest Single View06/10/2023 11:20 am CLINICAL HISTORY: DYSPNEA COMPARISON: Chest Single View dated 03/21/2023; Chest Single View dated 03/21/2023; Chest Single View dated 02/20/2023; Chest Single View dated 02/03/2023 TECHNIQUE: Portable AP view of the chest. FINDINGS: Patchy bilateral airspace opacities more pronounced on the left, with suspected small effu chey. Central interstitial prominence as well. No pneumothorax. The cardiomediastinal contours are u nremarkable. IMPRESSION: Patchy bilateral airspace opacities, may reflect pulmonary edema and/or pneumonia.
[2023-06-10 12:02] LABS: Absolute Monocytes 0.6 K/uL (0.1-1.3); Absolute Neutrophil 5.2 K/uL (1.8-8.0); Basophils % 0.5 % (0-1.3); Eosinophils % 0.2 % (0-4.4); Hematocrit 24.5 % (39.6-49.0); Hemoglobin 7.7 g/dL (13.6-17.9); MCHC 31.6 g/dL (32.0-36.0); MCV 94.9 fL (80-100); Neutrophils % 76.3 % (41.7-73.7); Nucleated Red Blood Cells % 0.1 % (0-0); Platelets 219 thou/uL (152-406); RBC Red Blood Cell Count 2.58 M/uL (4.33-5.43); Red Cell Distribution Width 17.3 % (12.1-15.2)
[2023-06-10 12:05] LABS: PT Prothrombin Time 11.9 SECONDS (9.5-12.5); PTT, Activated Partial Thromb 34.7 SECONDS (24.3-36.9); Protime INR 1.08
[2023-06-10] MEDS ORDERED: CEFTRIAXONE 1000 MG/VIAL ONE (12:08)
[2023-06-10] MEDS ORDERED: AZITHROMYCIN 500 MG INJ IVPB ONE (12:08)
[2023-06-10] MEDS ORDERED: NA CHLORIDE 0.9% 250 ML ONE (12:08)
[2023-06-10 12:11] LABS: SARS-CoV-2 Antigen CONTROL BLUE LINE VIS/BG OK; SARS-CoV-2 Antigen Rapid Res Negative (Negative)
[2023-06-10 12:34] LABS: Albumin 3.1 g/dL (3.4-5.0); Albumin/Globulin Ratio 0.8 (1.1-1.8); Anion Gap 8.8 mEq/L (5.0-15.0); Bilirubin Total 0.3 mg/dL (0.2-1.0); Globulin 3.8 g/dL (2.3-3.5); Potassium 4.8 mEq/L (3.5-5.1); Protein, Total 6.9 g/dL (6.4-8.2)
--- NOTE | 2023-06-10 13:40 | ER ---
Nurse's Notes [facility] [place] [place] [facility] Name: Joe Singh Age: 73 yrs Sex: Male : 1950 Arrival Date: 06/10/2023 Time: 10:59 Bed 2 Private MD: Diagnosis: Pneumonia, unspecified organism;Hypoxemia;Unspecified combined systolic (congestive) and diastolic (congestive) heart failure Presentation: 06/09 11:05 Chief complaint: EMS states: patients home health nurse called due to his O2 sats going ko1 down to 80% while walking to the bathroom. He has gained about 10 lbs and feels like he is "full of fluid". Coronavirus screen: At this time, the client does not indicate any symptoms associated with coronavirus-19. Ebola Screen: No symptoms or risks identified at this time. Initial Sepsis Screen: Does the patient meet any 2 criteria? No. Patient's initial sepsis screen is negative. Does the patient have a suspected source of infection? No. Patient's initial sepsis screen is negative. Risk Assessment: Do you want to hurt yourself or someone else? Patient reports no desire to harm self or others. Onset of symptoms was June 10, 2023. Care prior to arrival: IV initiated. 20 GA, in the left hand, Oxygen administered. via a nebulizer mask. 11:05 Method Of Arrival: EMS: [facility] ko1 11:05 Acuity: JENNY 3 ko1 Triage Assessment: 11:07 General: Appears distressed, Behavior is calm, cooperative, appropriate for age. Pain: ko1 Denies pain. EENT: No deficits noted. Neuro: No deficits noted. Cardiovascular: Reports shortness of breath. Respiratory: Reports shortness of breath on exertion. GI: No deficits noted. : No deficits noted. Derm: Skin is fragile, has skin tears on right elbow. Musculoskeletal: No deficits noted. Historical: - Allergies: 11:07 No Known Allergies; ko1 - PMHx: 11:07 Atrial fibrillation; Chronic obstructive lung disease; Congestive heart failure; ko1 neuropathy; - Immunization history:: Adult Immunizations up to date. - Infectious Disease History:: Denies. - Social history:: Smoking status: Patient/guardian denies using tobacco, but has a distant history of tobacco abuse. - Family history:: not pertinent. - Hospitalizations: : No recent hospitalization is reported. Screenin:21 [facility] ED Fall Risk Assessment (Adult) History of falling in the last 3 months, ko1 including since admission Yes- single mechanical fall (1 pt) Confusion or Disorientation No (0 pts) Intoxicated or Sedated No (0 pts) Impaired Gait Yes (1 pt) Mobility Assist Device Used Yes (1 pt) Altered Elimination No (0 pt) Score/Fall Risk Level 3 or more points = High Risk Oriented to surroundings, Maintained a safe environment, Educated pt \\T\\ family on fall prevention, incl call for assistance when getting out of bed, Assessed \\T\\ reinforced patient's understanding of fall precautions, Provided non-skid footwear, Hourly rounding (assess needs \\T\\ fall precautionary measures) done, Used ambulatory aids as needed (educated on \\T\\ assisted with), Used gait belt as appropriate Implemented a Fall Risk Plan of Care, Apply high fall risk patient identification: yellow non skid footwear/ fall signage, Remained w/in arm's length of patient and in sight while toileting, Offered frequent toileting (1:1 observation), Remained with patient while ambulating, Utilized family, sitter, or virtual bottle labeler as indicated. Abuse screen: Denies threats or abuse. Denies injuries from another. Nutritional screening: No deficits noted. Tuberculosis screening: No symptoms or risk factors identified. Assessment: 11:07 Reassessment: please see triage. kc6 12:07 Reassessment: Patient appears in no apparent distress at this time. No changes from kc6 previously documented assessment. Patient and/or family updated on plan of care and expected duration. Pain level reassessed. Patient is alert, oriented x 3, equal unlabored respirations, skin warm/dry/pink. Vital Signs: 11:05 BP 129 / 70; Pulse 80; Resp 18; Temp 97.4; Pulse Ox 95% on Nebulizer Mask; ko1 12:21 BP 102 / 58; Pulse 80; Resp 16; Pulse Ox 92% on 2 lpm NC; ko1 13:57 BP 119 / 56; Pulse 79; Resp 15; Pulse Ox 93% on 2 lpm NC; ko1 15:19 BP 124 / 66; Pulse 85; Resp 19; Pulse Ox 93% on 4 lpm NC; ko1 16:14 BP 140 / 70; Pulse 83; Resp 19; Pulse Ox 92% on 4 lpm NC; ko1 ED Course: 11:00 Patient arrived in ED. rn 11:00 Matt Sterling MD is Attending Physician. rn 11:04 Cindy York, YOLANDA is Primary Nurse. ko1 11:07 Triage completed. ko1 11:07 Arm band placed on right wrist. Patient placed in an exam room, on a stretcher, on ko1 oxygen, on media monitor, on pulse oximetry, Patient notified of wait time. 11:22 Chest Single View XRAY In Process Unspecified. EDMS 11:25 Initial Neb Treatment Given as ordered Patient was instructed and evaluated on ko1 procedure. 11:25 Initial Neb Treatment Given as ordered Patient tolerated procedure well without adverse ko1 effect. 11:25 No provider procedures requiring assistance completed. ko1 11:30 Door closed. Noise minimized. Warm blanket given. ko1 11:39 BNP Sent. ko1 11:40 Flu Sent. ko1 11:40 SARS RAPID Sent. ko1 11:40 Blood Culture Adult (2) Sent. ko1 11:40 CBC with Diff Sent. ko1 11:40 CMP Sent. ko1 11:40 Lactate w/ 2H reflex if indic. Sent. ko1 11:40 Protime (+inr) Sent. ko1 11:40 Ptt, Activated Sent. ko1 11:40 Initial lab(s) drawn, by me, sent to lab. Maintain EMS IV. Dressing intact. Good blood ko1 return noted. Site clean \\T\\ dry. Gauge \\T\\ site: 20 left wrist. 12:00 Warm blanket given. Head of bed elevated. ko1 12:15 PO fluids given. Head of bed lowered. ko1 12:21 Patient has correct armband on for positive identification. Fall risk band placed. ko1 Placed in gown. Bed in low position. Call light in reach. Side rails up X2. Client placed on continuous cardiac and pulse oximetry monitoring. NIBP monitoring applied. nuclear monitoring technician on. 12:30 Warm blanket given. ko1 12:49 Warm blanket given. PO fluids given. Head of bed elevated. Elevated foot. ko1 13:39 Brian Duque MD is Hospitalizing Provider. rn 15:19 Provided Education on: na. ko1 15:19 Patient admitted, IV remains in place. ko1 Administered Medications: 11:24 Drug: MethylPrednisoLONE IVP 125 mg IVP once Route: IVP; Site: left hand; ko1 12:17 Follow up: Response: No adverse reaction ko1 11:25 Drug: Levalbuterol Inhalation 1.25 mg Inhalation once Route: Inhalation; ko1 12:17 Follow up: Response: No adverse reaction ko1 12:16 Drug: Rocephin IV 1 grams IV at calculated rate once; Given slow IV push per pharmacy ko1 instructions Route: IV; Rate: calculated rate; Site: left wrist; 12:39 Follow up: Response: No adverse reaction; IV Status: Completed infusion; IV Intake: ko1 100ml 12:16 Drug: Zithromax IVPB 500 mg IVPB once over 1 hrs; mix in 250 mL NS Route: IVPB; Infused ko1 Over: 1 hrs; Site: left hand; 13:20 Follow up: Response: No adverse reaction; IV Status: Completed infusion; IV Intake: ko1 250ml Medication: 12:21 VIS not applicable for this client. ko1 Intake: 12:39 IV: 100ml; Total: 100ml. ko1 13:20 IV: 250ml; Total: 350ml. ko1 Outcome: 13:39 Decision to Hospitalize by Provider. rn 15:19 Admitted to ER Hold. Please see [facility] for further documentation. ko1 15:19 Condition: stable 15:19 Instructed on the need for admit, 17:06 Patient left the ED. ko1 Signatures: Dispatcher [employer] EDMatt Espana MD MD rn Campbell, Kaitlyn, RN RN kcCindy Chamberlain RN RN ko1
--- NOTE | 2023-06-10 13:40 | EDPHYS ---
Physician Documentation [facility] Name: Joe Singh Age: 73 yrs Sex: Male : 1950 Arrival Date: 06/10/2023 Time: 10:59 Bed 2 Private MD: ED Physician Matt Sterling HPI: 06/09 11:25 This 73 yrs old Male presents to ER via EMS with complaints of sob. rn 11:25 The patient has shortness of breath at rest, with light activity. Onset: The rn symptoms/episode began/occurred 2 day(s) ago. Duration: The symptoms are continuous. The patient's shortness of breath is aggravated by exertion, light activity, talking. Associated signs and symptoms: Pertinent positives: productive cough, fever, Pertinent negatives: hemoptysis, loss of consciousness. Severity of symptoms: At their worst the symptoms were moderate in the emergency department the symptoms are unchanged. The patient has experienced similar episodes in the past. The patient has not recently seen a physician. Patient reports not feeling well for the last week. Reports productive cough and dyspnea on exertion. His nurse noted today that after ambulation his oxygen saturation dipped to 80%. Does have a history of COPD and congestive heart failure. Patient also reports 10 pound weight gain over the last week or so. States compliant with medication. Also reports subjective fever. No trauma. No abdominal pain. No syncope. No fall or trauma noted.. Historical: - Allergies: 11:07 No Known Allergies; ko1 - PMHx: 11:07 Atrial fibrillation; Chronic obstructive lung disease; Congestive heart failure; ko1 neuropathy; - Immunization history:: Adult Immunizations up to date. - Infectious Disease History:: Denies. - Social history:: Smoking status: Patient/guardian denies using tobacco, but has a distant history of tobacco abuse. - Family history:: not pertinent. - Hospitalizations: : No recent hospitalization is reported. ROS: 11:25 Constitutional: Positive for subjective fever Eyes: Negative for injury, pain, redness, rn and discharge, Cardiovascular: Negative for chest pain Respiratory: Positive for cough and shortness of breath Abdomen/GI: Negative for abdominal pain, nausea, vomiting, diarrhea, and constipation, MS/Extremity: Negative for injury and deformity, Skin: Negative for injury, rash, and discoloration, Neuro: Positive for generalized weakness and malaise Exam: 11:25 Constitutional: Disheveled patient, mild tachypnea Head/Face: Normocephalic, rn atraumatic. ENT: Dry mucous membranes, no stridor Cardiovascular: Regular rate, irregular rhythm. No pulse deficits. Respiratory: Mild to moderate tachypnea. Diminished breath sounds bilaterally with diffuse wheezing Abdomen/GI: Soft, non-tender Skin: Warm, dry MS/ Extremity: Pulses equal, no cyanosis. Neuro: Awake and alert, GCS 15 11:53 ECG was reviewed by the Attending Physician. rn Vital Signs: 11:05 BP 129 / 70; Pulse 80; Resp 18; Temp 97.4; Pulse Ox 95% on Nebulizer Mask; ko1 12:21 BP 102 / 58; Pulse 80; Resp 16; Pulse Ox 92% on 2 lpm NC; ko1 13:57 BP 119 / 56; Pulse 79; Resp 15; Pulse Ox 93% on 2 lpm NC; ko1 15:19 BP 124 / 66; Pulse 85; Resp 19; Pulse Ox 93% on 4 lpm NC; ko1 16:14 BP 140 / 70; Pulse 83; Resp 19; Pulse Ox 92% on 4 lpm NC; ko1 MDM: 11:00 Patient medically screened. rn 13:31 Differential diagnosis: Anemia CHF exacerbation, Chronic Obstructive Pulmonary Disease rn Myocardial Infarction pneumonia, Pneumothorax pulmonary edema. Data reviewed: vital signs, nurses notes, lab test result(s), EKG, radiologic studies, plain films, and as a result, I will admit patient. Counseling: I had a detailed discussion with the patient and/or guardian regarding the historical points, exam findings, and any diagnostic results supporting the discharge/admit diagnosis, lab results, radiology results, the need for further work-up and treatment in the hospital. 13:39 Response to treatment: the patient's symptoms have mildly improved after treatment, and rn as a result, I will admit patient. 06/09 11:01 Order name: Blood Culture Adult (2) rn 06/09 11:01 Order name: CBC with Diff; Complete Time: 13:08 rn 06/09 11: Order name: CMP; Complete Time: 13:08 rn 06/09 11:01 Order name: Lactate w/ 2H reflex if indic.; Complete Time: 13: rn 06/09 11: Order name: Protime (+inr); Complete Time: 13:08 rn 06/09 11:01 Order name: Ptt, Activated; Complete Time: 13:08 rn 06/09 11:01 Order name: SARS RAPID; Complete Time: 13:08 rn 06/09 11:01 Order name: Flu; Complete Time: 13:08 rn 06/09 11:01 Order name: BNP; Complete Time: 13:08 rn 06/09 14:33 Order name: Urinalysis w/ reflexes EDMS 06/09 14:44 Order name: T4 Free EDMS 06/09 14:44 Order name: Thyroid Stimulating Hormone EDMS 06/09 14:44 Order name: Basic Metabolic Panel EDMS 06/09 14:44 Order name: Basic Metabolic Panel EDMS 06/09 14:44 Order name: Basic Metabolic Panel EDMS 06/09 14:44 Order name: Basic Metabolic Panel EDMS 06/09 14:44 Order name: Basic Metabolic Panel EDMS 06/09 14:44 Order name: Basic Metabolic Panel EDMS 06/09 14:44 Order name: CBC with Automated Diff EDMS 06/09 14:44 Order name: CBC with Automated Diff EDMS 06/09 14:44 Order name: CBC with Automated Diff EDMS 06/09 14:44 Order name: CBC with Automated Diff EDMS 06/09 14:44 Order name: CBC with Automated Diff EDMS 06/09 14:44 Order name: CBC with Automated Diff EDMS 06/09 14:44 Order name: Lipid Profile EDMS 06/09 14:44 Order name: Lipid Profile EDMS 06/09 14:44 Order name: Magnesium EDMS 06/09 14:44 Order name: Magnesium EDMS 06/09 14:44 Order name: Magnesium EDMS 06/09 14:44 Order name: Magnesium EDMS 06/09 14:44 Order name: Magnesium EDMS 06/09 14:44 Order name: Magnesium EDMS 06/09 14:44 Order name: Phosphorus EDMS 06/09 14:44 Order name: Phosphorus EDMS 06/09 14:44 Order name: Phosphorus EDMS 06/09 14:44 Order name: Phosphorus EDMS 06/09 14:44 Order name: Phosphorus EDMS 06/09 14:44 Order name: Phosphorus EDMS 06/09 17:03 Order name: Hemoglobin A1c EDMS 06/09 11:01 Order name: Chest Single View XRAY; Complete Time: 11:57 rn 06/09 11:01 Order name: EKG; Complete Time: 11:02 rn 06/09 14:44 Order name: Physical Therapy Consult EDMS 06/09 11:01 Order name: Accucheck; Complete Time: 11:56 rn 06/09 11:01 Order name: Cardiac monitoring; Complete Time: 11:10 rn 06/09 11:01 Order name: EKG - Nurse/Tech; Complete Time: 11:03 rn 06/09 11:01 Order name: IV Saline Lock - Large Bore; Complete Time: 11: rn 06/09 11:01 Order name: Labs collected and sent; Complete Time: 11:40 rn 06/09 11:01 Order name: O2 Per Protocol; Complete Time: 11:20 rn 06/09 11:01 Order name: O2 Sat Monitoring; Complete Time: 11: rn 06/09 11:01 Order name: Vital Signs; Complete Time: 11:11 rn EC:53 Rate is 81 beats/min. Rhythm is regular. QRS Dudley is Normal. SC interval is normal. QRS rn interval is normal. QT interval is normal. No Q waves. T waves are Normal. No ST changes noted. Clinical impression: NSR w/ Non-specific ST/T Changes. Interpreted by me. Reviewed by me. Administered Medications: 11:24 Drug: MethylPrednisoLONE IVP 125 mg IVP once Route: IVP; Site: left hand; ko1 12:17 Follow up: Response: No adverse reaction ko1 11:25 Drug: Levalbuterol Inhalation 1.25 mg Inhalation once Route: Inhalation; ko1 12:17 Follow up: Response: No adverse reaction ko1 12:16 Drug: Rocephin IV 1 grams IV at calculated rate once; Given slow IV push per pharmacy ko1 instructions Route: IV; Rate: calculated rate; Site: left wrist; 12:39 Follow up: Response: No adverse reaction; IV Status: Completed infusion; IV Intake: ko1 100ml 12:16 Drug: Zithromax IVPB 500 mg IVPB once over 1 hrs; mix in 250 mL NS Route: IVPB; Infused ko1 Over: 1 hrs; Site: left hand; 13:20 Follow up: Response: No adverse reaction; IV Status: Completed infusion; IV Intake: ko1 250ml Disposition Summary: 06/10/23 13:39 Hospitalization Ordered Notes: Hospitalization Status: Inpatient Admission rn Provider: Brian Duque rn Location: Telemetry/MedSurg (Inpatient) rn Condition: Stable rn Problem: new rn Symptoms: have improved rn Bed/Room Type: Standard rn Room Assignment: 426(06/10/23 15:44) bd Diagnosis - Pneumonia, unspecified organism rn - Hypoxemia rn - Unspecified combined systolic (congestive) and diastolic (congestive) heart failure rn Forms: - Medication Reconciliation Form rn - SBAR form rn - Leadership Thank You Letter rn Signatures: Dispatcher [employer] EDMS Selena szymanski Matt Acosta MD MD rn Oliver, Kathy, RN RN ko1 Corrections: (The following items were deleted from the chart) 11: 11:02 BLOOD CULTURE*+BA.LAB.BRZ ordered. EDMS EDMS 11: 11:02 CBC+H.LAB.BRZ ordered. EDMS EDMS 11: 11:02 COMPREHENSIVE METABOLIC PANEL+C.LAB.BRZ ordered. EDMS EDMS 11: 11:02 LACTATE+C.LAB.BRZ ordered. EDMS EDMS 11: 11:02 PROTIME (+INR)+COAG.LAB.BRZ ordered. EDMS EDMS 11: 11:02 PTT, ACTIVATED+COAG.LAB.BRZ ordered. EDMS EDMS 11: 11:02 SARS-COV-2 Antigen Rapid+I.LAB.BRZ ordered. EDMS EDMS 11: 11:02 Influenza Screen (A \T\ B)+BA.LAB.BRZ ordered. EDMS EDMS 11: 11:02 PROBNP+C.LAB.BRZ ordered. EDMS EDMS 15:44 13:39 rn bd
[2023-06-10] MEDS: IPRATROPIUM BROM 0.5MG/2.5ML NEB SCH (14:39)
[2023-06-10] MEDS: FUROSEMIDE 40 MG/4 ML VIAL IV SCH (14:56)
--- NOTE | 2023-06-10 15:10 | P.HP ---
Certification for Inpatient Patient admitted to: Observation With expected LOS: <2 Midnights Patient will require the following post-hospital care: None Practitioner: I am a practitioner with admitting privileges, knowledge of patient current condition, hospital course, and medical plan of care. Services: Services provided to patient in accordance with Admission requirements found in Title 42 Section 412.3 of the Code of Federal Regulations Patient History Date of Service: 06/10/23 Reason for admission: CHF exacerbation Allergies No Known Allergies Allergy (Verified 12/14/22 23:09) Home Medications: Amlodipine Besylate 10 mg PO DAILY 12/16/22 Arformoterol Tartrate 15 mcg IH BID 12/16/22 Budesonide [Pulmicort*] 0.5 mg NEB BID 12/16/22 Bumetanide 0.5 mg PO DAILY 12/16/22 Ergocalciferol (Vitamin D2) [Vitamin D2] 50,000 unit PO EVERY 7TH DAY 12/16/22 Ipratropium/Albuterol Sulfate [Iprat-Albut 0.5-3(2.5) mg/3 ml] 3 ml IH Q6HR 12/16/22 Levothyroxine Sodium [Synthroid] 150 mcg PO DAILY 12/16/22 Magnesium Oxide [Mag 0X*] 400 mg PO DAILY 12/16/22 Oxymetazoline HCl [Afrin] 15 ml IN QOD QID 12/16/22 Fluticasone/Umeclidin/Vilanter [Trelegy Ellipta 100-62.5-25] 1 each IH DAILY 30 Days #30 aero 12/17/22 acetaZOLAMIDE [Diamox*] 250 mg PO DAILY #30 tab 12/18/22 Aspirin Chewable [Aspirin Chewable*] 81 mg PO DAILY 02/03/23 Atorvastatin Calcium [Lipitor] 80 mg PO BEDTIME 02/03/23 Famotidine [Pepcid*] 20 mg PO DAILY 02/03/23 Finasteride [Proscar*] 5 mg PO DAILY 02/03/23 Furosemide [Lasix*] 20 mg PO BIDL 02/03/23 Quetiapine Fumarate [Seroquel] 25 mg PO BID 02/03/23 Sodium Bicarbonate 1,300 mg PO BID 02/03/23 methocarbamoL [Methocarbamol] 1 tab PO Q8HP PRN 12/03/23 Hydrocodone/Acetaminophen [Hydrocodone-Acetamin 5-325 mg] 1 each PO Q12H PRN #10 tab 02/05/23 Ferrous Sulfate [Feosol] 325 mg PO DAILY 30 Days #30 tab 02/22/23 predniSONE [Prednisone] 20 mg PO BID 4 Days #8 tab 02/22/23 - Past Medical/Surgical History Diabetic: Yes -: Diastolic CHF -: DM II -: CKD 4 with Proteinuria (Dr. Garsia/ Dr. Hoffman) -: Afib -: Obesity hypoventilation syndrome -: Advanced COPD -: appendectomy -: Neck surgery 2013 -: Left knee surgery Psychosocial/ Personal History: Lives at home with family - Family History Father -: Heart disease, Liver disease Notes: Alcoholic Mother -: Heart disease, Hypertension, Diabetes Sister -: Heart disease Notes: NE Brother -: Heart disease Notes: NE, CHF older sister -: Heart disease, Kidney disease - Social History Alcohol use: No CD- Drugs: No Caffeine use: Yes Physical Examination - Studies Laboratory Data (last 24 hrs) 06/10/23 06/10/23 06/10/23 11:35 11:35 11:35 WBC 6.80 Hgb 7.7 L Hct 24.5 L Plt Count 219 PT 11.9 INR 1.08 APTT 34.7 Sodium 137 Potassium 4.8 BUN 58 H Creatinine 4.75 H Glucose 123 H Total Bilirubin 0.3 AST 14 L ALT 20 Alkaline Phosphatase 92 Microbiology Data (last 24 hrs): 06/10/23 11:35 Nasopharnyx Influenza Type A Antigen Screen - Final 06/10/23 11:35 Nasopharnyx Influenza Type B Antigen Screen - Final Assessment and Plan - Advance Directives Does patient have a Living Will: No Does patient have a Durable POA for Healthcare: No
[2023-06-10 16:13] LABS: Thyroid Stimulating Hormone 1.75 uIU/mL (0.358-3.740)
[2023-06-10] MEDS ORDERED: HYDROMORPHONE HCL 0.5 MG/0.5 ML INJ IV PRN (16:19)
[2023-06-10] MEDS: HEPARIN 5000 UNIT/ML 1 ML VIAL SQ SCH (16:23)
[2023-06-10] MEDS ORDERED: HEPARIN 5000 UNIT/ML 1 ML VIAL ONE (16:24)
[2023-06-10] MEDS ORDERED: FUROSEMIDE 40 MG/4 ML VIAL ONE (16:24)
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
[2023-06-10] MEDS: ENOXAPARIN 40 MG/0.4 ML SQ SCH (17:10)
[2023-06-10] MEDS ORDERED: LEVALBUTEROL 0.63 MG/3 ML NEB NEB PRN (17:10)
[2023-06-10] MEDS: ATORVASTATIN 80 MG TAB PO SCH (20:04)
[2023-06-10] MEDS: LEVALBUTEROL 0.63 MG/3 ML NEB NEB SCH (20:07)
[2023-06-10] MEDS: ARFORMOTEROL TARTRATE 15 MCG/2 ML VIAL.NEB IH SCH (20:08)
[2023-06-10] MEDS ORDERED: ARFORMOTEROL TARTRATE 15 MCG/2 ML IH SCH (21:00)
[2023-06-10] MEDS ORDERED: ATORVASTATIN CALCIUM 80 MG PO SCH (21:00)
[2023-06-11 07:03] LABS: Absolute Lymphocytes (CBC) 0.4 K/uL (0.7-4.9); Absolute Monocytes 0.3 K/uL (0.1-1.3); Absolute Neutrophil 4.3 K/uL (1.8-8.0); Basophils % 0.2 % (0-1.3); Eosinophils % 0.1 % (0-4.4); Hematocrit 23.2 % (39.6-49.0); Hemoglobin 7.6 g/dL (13.6-17.9); Lymphocytes % 7.8 % (15.3-44.8); MCH 30.6 pg (27.0-35.0); MCHC 32.9 g/dL (32.0-36.0); MCV 93.2 fL (80-100); MPV 7.8 fL (7.6-11.3); Monocytes % 6.1 % (3.3-12.3); Neutrophils % 85.8 % (41.7-73.7); Nucleated Red Blood Cells % 0.3 % (0-0); Platelets 233 thou/uL (152-406); RBC Red Blood Cell Count 2.49 M/uL (4.33-5.43)
[2023-06-11 07:40] LABS: Anion Gap 9.9 mEq/L (5.0-15.0); Magnesium 2.4 mg/dL (1.6-2.4); Phosphorus 6.2 mg/dL (2.5-4.9); Potassium 4.9 mEq/L (3.5-5.1); Uric Acid 8.9 mg/dL (3.5-7.2)
[2023-06-11] MEDS: ASPIRIN 81 MG CHEWABLE TABLET PO SCH (08:14)
[2023-06-11] MEDS: METHYLPREDNISOLONE 40 MG INJ IV SCH (08:14)
[2023-06-11] MEDS: HYDROCODONE/APAP 5/325 MG TAB PO PRN (08:14)
[2023-06-11] MEDS: AMLODIPINE 10 MG TAB PO SCH (08:15)
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
[2023-06-11 08:44] LABS: Hepatitis B Core Ab, Total Reactive (Nonreactive); Hepatitis B surface AG Interp. Nonreactive (Nonreactive)
[2023-06-11 08:46] LABS: Hepatitis B Surface Ab - Quant < 3.10 mIU/mL (<8.0)
[2023-06-11] MEDS ORDERED: CEFTRIAXONE 1,000 MG in NA CHLORIDE 0.9% 50 ML IVPB SCH (09:00)
[2023-06-11 09:22] LABS: Blood Morphology Comment NOT SEEN (NOT SEEN); Platelet Estimate ADEQ; White Blood Cell Scan OK (OK)
[2023-06-11] MEDS: CEFTRIAXONE 1,000 MG in NA CHLORIDE 0.9% 50 ML IVPB SCH (10:27)
[2023-06-11 13:22] LABS: Specific Gravity 1.014 (1.005-1.030); Sqamous Epithelial <5 /HPF (None Seen); Urine Bacteria <20 /HPF (<20); Urine Bilirubin NEGATIVE (Negative); Urine Blood Negative (Negative); Urine Clarity Extremely Turbid (Clear); Urine Color Light-Yellow (Yellow); Urine Culture Reflex Order NOT NEEDED; Urine Glucose TRACE (Negative); Urine Ketones NEGATIVE (Negative); Urine Microscopic Reflex YN ORDER UMIC; Urine Mucus Slight /HPF (None Seen); Urine Nitrite NEGATIVE (Negative); Urine Protein 3+ (Negative); Urine RBC <5 /HPF (None Seen); Urine Urobilinogen Normal (Normal); Urine WBC <5 /HPF (<5); Urine pH 5.5 (5.0-7.0)
--- NOTE | 2023-06-11 16:18 | EKG ---
Test Date: 2023-06-10 Test Time: 10:56:06 Field Service Analyst: HAYDER MEASUREMENT RESULTS: Intervals: Rate: 81 MO: 204 QRSD: 92 QT: 382 QTc: 443 [place]: P: 78 MO: 204 QRS: 78 T: 80 INTERPRETIVE STATEMENTS: Normal sinus rhythm Low voltage QRS Borderline ECG Compared to ECG 03/21/2023 16:12:09 Low QRS voltage now present Sinus bradycardia no longer present Sinus arrhythmia no longer present Right-axis deviation no longer present Incomplete right bundle-branch block no longer present T-wave abnormality no longer present Electronically Signed On 06-11-23 16:15:08 CDT by Khang Guerrier
[2023-06-11] MEDS: ENOXAPARIN 30 MG/0.3 ML SQ SCH (16:32)
[2023-06-11] MEDS: ACETAMINOPHEN 500 MG TAB PO PRN (16:32)
[2023-06-11] MEDS: FUROSEMIDE 40 MG/4 ML VIAL IV ONE ×2 (16:38→16:41)
--- NOTE | 2023-06-11 17:32 | P.CNS ---
Date of Consult: 06/11/23 Reason for Consult: DIA Requesting Physician: Leonel Wilkerson Primary Care Provider: Dr. Wilkerson Chief Complaint: CHF exacerbation History of Present Illness: Patient with a history of copd, chf. He has not been to the clinic in a whlle. States he was feeling bad for the last few weeks. He has been having swelling in the belly and cold legs the last week. States he was feeling worse and came to the ER. He was found to have acute on chronic renal failure. With an elevated bnp. he has pleural effusion on xray. He has a history of drug use. However he denies it at this time. The patient denies being around any cigarette smoke. [id number] 11:25 This 73 yrs old Male presents to ER via EMS with complaints of sob. rn 11:25 The patient has shortness of breath at rest, with light activity. Onset: The rn symptoms/episode began/occurred 2 day(s) ago. Duration: The symptoms are continuous. The patient's shortness of breath is aggravated by exertion, light activity, talking. Associated signs and symptoms: Pertinent positives: productive cough, fever, Pertinent negatives: hemoptysis, loss of consciousness. Severity of symptoms: At their worst the symptoms were moderate in the emergency department the symptoms are unchanged. The patient has experienced similar episodes in the past. The patient has not recently seen a physician. Patient reports not feeling well for the last week. Reports productive cough and dyspnea on exertion. His nurse noted today that after ambulation his oxygen saturation dipped to 80%. Does have a history of COPD and congestive heart failure. Patient also reports 10 pound weight gain over the last week or so. States compliant with medication. Also reports subjective fever. No trauma. No abdominal pain. No syncope. No fall or trauma noted.. Allergies No Known Allergies Allergy (Verified 12/14/22 23:09) Home medications list reviewed: Yes Home Medications: Amlodipine Besylate 10 mg PO DAILY 12/16/22 Arformoterol Tartrate 15 mcg IH BID 12/16/22 Budesonide [Pulmicort*] 0.5 mg NEB BID 12/16/22 Bumetanide 0.5 mg PO DAILY 12/16/22 Ergocalciferol (Vitamin D2) [Vitamin D2] 50,000 unit PO EVERY 7TH DAY 12/16/22 Ipratropium/Albuterol Sulfate [Iprat-Albut 0.5-3(2.5) mg/3 ml] 3 ml IH Q6HR 12/16/22 Levothyroxine Sodium [Synthroid] 150 mcg PO DAILY 12/16/22 Magnesium Oxide [Mag 0X*] 400 mg PO DAILY 12/16/22 Oxymetazoline HCl [Afrin] 15 ml IN QOD QID 12/16/22 Fluticasone/Umeclidin/Vilanter [Trelegy Ellipta 100-62.5-25] 1 each IH DAILY 30 Days #30 aero 12/17/22 acetaZOLAMIDE [Diamox*] 250 mg PO DAILY #30 tab 12/18/22 Aspirin Chewable [Aspirin Chewable*] 81 mg PO DAILY 02/03/23 Atorvastatin Calcium [Lipitor] 80 mg PO BEDTIME 02/03/23 Famotidine [Pepcid*] 20 mg PO DAILY 02/03/23 Finasteride [Proscar*] 5 mg PO DAILY 02/03/23 Furosemide [Lasix*] 20 mg PO BIDL 02/03/23 Quetiapine Fumarate [Seroquel] 25 mg PO BID 02/03/23 Sodium Bicarbonate 1,300 mg PO BID 02/03/23 methocarbamoL [Methocarbamol] 1 tab PO Q8HP PRN 02/03/23 Hydrocodone/Acetaminophen [Hydrocodone-Acetamin 5-325 mg] 1 each PO Q12H PRN #10 tab 02/05/23 Ferrous Sulfate [Feosol] 325 mg PO DAILY 30 Days #30 tab 02/22/23 predniSONE [Prednisone] 20 mg PO BID 4 Days #8 tab 02/22/23 - Past Medical/Surgical History Diabetic: Yes -: Diastolic CHF -: DM II -: CKD 4 with Proteinuria (Dr. Garsia/ Dr. Hoffman) -: Afib -: Obesity hypoventilation syndrome -: Advanced COPD -: appendectomy -: Neck surgery 2013 -: Left knee surgery Psychosocial/ Personal History: Lives at home with family - Family History Father Medical History: Heart disease, Liver disease Notes: Alcoholic Mother Medical History: Heart disease, Hypertension, Diabetes Sister Medical History: Heart disease Notes: [place] Brother Medical History: Heart disease Notes: [place], CHF older sister Medical History: Heart disease, Kidney disease - Social History Smoking Status: Former smoker Alcohol use: No CD- Drugs: No Caffeine use: Yes Place of Residence: Home Review of Systems 10-point ROS is otherwise unremarkable General: Weakness, Malaise Respiratory: Shortness of Breath, SOB with Excertion Cardiovascular: Orthopnea, Edema Physical Examination Temp Pulse Resp BP Pulse Ox 98.6 F 76 15 130/59 L 91 06/11/23 16:00 06/11/23 16:00 06/11/23 16:00 06/11/23 16:00 06/11/23 16:00 General: In no apparent distress, Oriented x3, Cooperative HEENT: Atraumatic Neck: Supple Respiratory: Expiratory wheezes Cardiovascular: Regular rate/rhythm Gastrointestinal: Soft and benign, Non-distended Musculoskeletal: No clubbing, No contractures Integumentary: No rashes, No cyanosis Neurological: Normal speech Blood work reviewed in the chart Imagings Data: EXAM DESCRIPTION: RADChest Single View06/10/2023 11:20 am CLINICAL HISTORY: DYSPNEA COMPARISON: Chest Single View dated 03/21/2023; Chest Single View dated 03/21/2023; Chest Single View dated 02/20/2023; Chest Single View dated 02/03/2023 TECHNIQUE: Portable AP view of the chest. FINDINGS: Patchy bilateral airspace opacities more pronounced on the left, with suspected small effusion. Central interstitial prominence as well. No pneumothorax. The cardiomediastinal contours are unremarkable. IMPRESSION: Patchy bilateral airspace opacities, may reflect pulmonary edema and/or pneumonia. Conclusions/Impression: Stage I DIA vs Progressive CKD with associated oliguria CKD IV/V with Proteinuria -No NSAIDs -May need to consider dialysis if no improvement -Insert Still catheter HTN with CKD/ CHF -Continue Amlodipine Diastolic CHF, A/C -Low sodium diet -Continue Furosemide -Repeat CXR in AM DM II with CKD -RISS prn Anemia in CKD -Retacrit X1 CKD MBD -Start Cholecalciferol -Start Renvela Case reviewed with Dr. Wilkerson Thank you kindly for the consultation
[2023-06-12 04:57] LABS: Absolute Lymphocytes (CBC) 0.2 K/uL (0.7-4.9); Absolute Monocytes 0.2 K/uL (0.1-1.3); Basophils % 0.1 % (0-1.3); Hematocrit 21.9 % (39.6-49.0); Hemoglobin 7.2 g/dL (13.6-17.9); MCH 30.5 pg (27.0-35.0); MCHC 32.9 g/dL (32.0-36.0); MCV 92.8 fL (80-100); MPV 7.5 fL (7.6-11.3); Monocytes % 2.5 % (3.3-12.3); Nucleated Red Blood Cells % 0.3 % (0-0); Platelets 246 thou/uL (152-406); RBC Red Blood Cell Count 2.36 M/uL (4.33-5.43); Red Cell Distribution Width 16.7 % (12.1-15.2)
[2023-06-12 05:03] LABS: Neutrophils % 94.4 % (41.7-73.7)
[2023-06-12 05:30] LABS: Anion Gap 9.6 mEq/L (5.0-15.0); Magnesium 2.2 mg/dL (1.6-2.4); Phosphorus 5.5 mg/dL (2.5-4.9); Potassium 4.6 mEq/L (3.5-5.1); Uric Acid 9.4 mg/dL (3.5-7.2)
--- NOTE | 2023-06-12 06:55 | ECHO ---
HEIGHT: 6 ft 0 in WEIGHT: 214 lb 0 oz DATE OF STUDY: 06/11/[address]: Benny Alonso MD 2-DIMENSIONAL: YES M.MODE: YES DOPPLER: YES COLOR FLOW: YES TDS: PORTABLE: YES DEFINITY: BUBBLE STUDY: DIAGNOSIS: CONGESTIVE HEART FAILURE CARDIAC HISTORY: CATHERIZATION: NO SURGERY: NO PROSTHETIC VALVE: NO PACEMAKER: NO MEASUREMENTS (cm) DIASTOLIC (NORMALS) SYSTOLIC (NORMALS) IVSd 1.4 (0.6-1.2) LA Diam 4.1 (1.9-4.0) LVEF 57% LVIDd 4.4 (3.5-5.7) LVIDs 3.0 (2.0-3.5) %FS 30% LVPWd 1.4 (0.6-1.2) Ao Diam 3.0 (2.0-3.7) 2 DIMENSIONAL ASSESSMENT: RIGHT ATRIUM: NORMAL LEFT ATRIUM: ENLARGED RIGHT VENTRICLE: NORMAL LEFT VENTRICLE: NORMAL TRICUSPID VALVE: MILD TRICUSPID REGURGITATION MITRAL VALVE: MILD MITRAL REGURGITATION PULMONIC VALVE: NORMAL AORTIC VALVE: NORMAL PERICARDIAL EFFUSION: NONE AORTIC ROOT: NORMAL LEFT VENTRICULAR WALL MOTION: NORMAL DOPPLER/COLOR FLOW: SEE BELOW COMMENTS: 1. NORMAL LEFT VENTRICULAR EJECTION FRACTION 55-60% 2. NORMAL WALL MOTION 3. MILD TRICUSPID REGURGITATION 4. MILD MITRAL REGURGITATION TECHNOLOGIST: LISA SLATER
--- NOTE | 2023-06-12 07:45 | RAD REPORT ---
EXAM DESCRIPTION: RAD - Chest Pa And Lat (2 Views) - 06/12/2023 5:09 am CLINICAL HISTORY: CHF vs COPD Chest pain. COMPARISON: Chest Single View dated 06/10/2023; Chest Single View dated 03/21/2023; Chest Single View d ated 03/21/2023; Chest Single View dated 02/20/2023 FINDINGS: Moderate pulmonary edema pattern is again noted with bilateral pleural effusions, mildly i mproved since comparative study. 1 cm pulmonary nodules present in the left apex. The heart is modera tely enlarged. Hardware is present cervical spine. IMPRESSION: Mild improvement in CHF/ volume overload pattern since comparative study.
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
[2023-06-12] MEDS: VITAMIN D 5,000 UNIT CAP PO SCH (08:30)
[2023-06-12] MEDS: SEVELAMER CARBONATE 800 MG TABLET PO SCH (08:30)
[2023-06-12] MEDS: DOCUSATE NA 100 MG CAP PO SCH (08:30)
[2023-06-12] MEDS: EPOETIN ALFA-EPBX 10,000 UNIT/ML VIAL SQ SCH (09:15)
[2023-06-12 14:39] VITALS: BMI 29.0
--- NOTE | 2023-06-12 22:55 | P.PN ---
Date of Service: 06/12/23 Vital Signs Temp Pulse Resp BP Pulse Ox 97.8 F 76 20 159/77 H 95 06/12/23 20:00 06/12/23 20:00 06/12/23 20:00 06/12/23 20:00 06/12/23 20:00 Medications Acetaminophen (Acetaminophen 500 Mg Tab) 500 mg PO Q4HP PRN PRN Reason: Pain scale 2-4 (Mild) Last Admin: 06/12/23 00:38 Dose: 500 mg Hydrocodone Bitart/Acetaminophen (Hydrocodone/Apap 5/325 Mg Tab) 1 tab PO Q12H PRN PRN Reason: Pain scale 5-7 (Moderate) Last Admin: 06/12/23 20:56 Dose: 1 tab Amlodipine Besylate (Amlodipine 10 Mg Tab) 10 mg PO DAILY [facility] Last Admin: 06/12/23 08:31 Dose: 10 mg Arformoterol Tartrate (Arformoterol Tartrate 15 Mcg/2 Ml Vial.Neb) 15 mcg IH BIDRESP [facility] Last Admin: 06/12/23 21:03 Dose: 15 mcg Aspirin (Aspirin 81 Mg Chewable Tablet) 81 mg PO DAILY [facility] Last Admin: 06/12/23 08:30 Dose: 81 mg Atorvastatin Calcium (Atorvastatin 80 Mg Tab) 80 mg PO BEDTIME [facility] Last Admin: 06/12/23 20:56 Dose: 80 mg Cholecalciferol (Vitamin D 5,000 Unit Cap) 5,000 unit PO DAILY [facility] Last Admin: 06/12/23 08:30 Dose: 5,000 unit Docusate Sodium (Docusate Na 100 Mg Cap) 100 mg PO BID [facility] Last Admin: 06/12/23 20:56 Dose: 100 mg Enoxaparin Sodium (Enoxaparin 30 Mg/0.3 Ml) 30 mg SQ DAILY 5 PM [facility] Last Admin: 06/12/23 17:08 Dose: 30 mg Ipratropium Nerinx (Ipratropium Brom 0.5mg/2.5ml) 0.5 mg NEB [id number] [facility] Last Admin: 06/12/23 21:03 Dose: 0.5 mg Levalbuterol HCl (Levalbuterol 0.63 Mg/3 Ml Neb) 0.63 mg NEB [id number] [facility] Last Admin: 06/12/23 21:03 Dose: 0.63 mg Levalbuterol HCl (Levalbuterol 0.63 Mg/3 Ml Neb) 0.63 mg NEB [id number] PRN PRN Reason: SHORTNESS OF BREATH Sevelamer Carbonate (Sevelamer Carbonate 800 Mg Tablet) 800 mg PO TIDWM [facility] Last Admin: 06/12/23 17:09 Dose: 800 mg Microbiology Results 06/10/23 11:15 Blood - Blood Aerobic Blood Culture - Preliminary No growth in 24 hours. 06/10/23 11:15 Blood - Blood Anaerobic Blood Culture - Preliminary No growth in 24 hours. 06/10/23 11:35 Blood - Blood Aerobic Blood Culture - Preliminary No growth in 24 hours. 06/10/23 11:35 Blood - Blood Anaerobic Blood Culture - Preliminary No growth in 24 hours. 06/10/23 11:35 Nasopharnyx Influenza Type A Antigen Screen - Final 06/10/23 11:35 Nasopharnyx Influenza Type B Antigen Screen - Final Assessment/ Plan: Nephrology No dyspnea. LYNN No chest pain No acute events overnight Vitals, medications, blood work and imaging reviewed in the chart General: In no apparent distress, Oriented x3, Cooperative HEENT: Atraumatic Neck: Supple Respiratory: Expiratory wheezes Cardiovascular: Regular rate/rhythm. LE Edema 1+ Gastrointestinal: Soft and benign, Non-distended Musculoskeletal: No clubbing, No contractures Integumentary: No rashes, No cyanosis Neurological: Normal speech Still Med Blood work reviewed in the chart Imagings Data: [facility] CLINICAL HISTORY: DYSPNEA COMPARISON: Chest Single View dated 03/21/2023; Chest Single View dated 03/21/2023; Chest Single View dated 02/20/2023; Chest Single View dated 02/03/2023 TECHNIQUE: Portable AP view of the chest. FINDINGS: Patchy bilateral airspace opacities more pronounced on the left, with suspected small effusion. Central interstitial prominence as well. No pneumothorax. The cardiomediastinal contours are unremarkable. IMPRESSION: Patchy bilateral airspace opacities, may reflect pulmonary edema and/or pneumonia. Conclusions/Impression: Stage I DIA vs Progressive CKD with associated oliguria CKD IV/V with Proteinuria -No NSAIDs -May need to consider dialysis if no improvement -Continue Still catheter HTN with CKD/ CHF -Continue Amlodipine Diastolic CHF, A/C -Low sodium diet -Continue Furosemide -CXR reviewed DM II with CKD -RISS prn Anemia in CKD -Retacrit PRN CKD MBD -Continue Cholecalciferol -Continue Renvela Case reviewed with Dr. Wilkerson
[2023-06-13] MEDS: FUROSEMIDE 40 MG/4 ML VIAL IV ONE ×3 (00:25→23:49)
[2023-06-13 05:14] LABS: Absolute Lymphocytes (CBC) 0.8 K/uL (0.7-4.9); Absolute Monocytes 0.9 K/uL (0.1-1.3); Absolute Neutrophil 6.2 K/uL (1.8-8.0); Basophils % 0.3 % (0-1.3); Hematocrit 21.5 % (39.6-49.0); Hemoglobin 7.1 g/dL (13.6-17.9); Lymphocytes % 9.9 % (15.3-44.8); MCH 30.5 pg (27.0-35.0); MCHC 33.2 g/dL (32.0-36.0); MPV 7.3 fL (7.6-11.3); Monocytes % 11.6 % (3.3-12.3); Neutrophils % 78.2 % (41.7-73.7); Nucleated RBC Absolute Count 0.1 (0-0); Nucleated Red Blood Cells % 0.7 % (0-0); Platelets 262 thou/uL (152-406); RBC Red Blood Cell Count 2.33 M/uL (4.33-5.43); Red Cell Distribution Width 16.9 % (12.1-15.2)
[2023-06-13 05:36] LABS: Anion Gap 9.6 mEq/L (5.0-15.0); Magnesium 2.3 mg/dL (1.6-2.4); Phosphorus 5.3 mg/dL (2.5-4.9); Potassium 4.6 mEq/L (3.5-5.1)
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
[2023-06-13] MEDS: TAMSULOSIN 0.4 MG SR CAP PO SCH (10:45)
--- NOTE | 2023-06-13 21:11 | P.PN ---
Date of Service: 06/13/23 Vital Signs Temp Pulse Resp BP Pulse Ox 97.7 F 75 17 150/72 H 94 06/13/23 16:00 06/13/23 16:00 06/13/23 16:00 06/13/23 16:00 06/13/23 16:00 Medications Acetaminophen (Acetaminophen 500 Mg Tab) 500 mg PO Q4HP PRN PRN Reason: Pain scale 2-4 (Mild) Last Admin: 06/13/23 15:37 Dose: 500 mg Hydrocodone Bitart/Acetaminophen (Hydrocodone/Apap 5/325 Mg Tab) 1 tab PO Q12H PRN PRN Reason: Pain scale 5-7 (Moderate) Last Admin: 06/13/23 20:26 Dose: 1 tab Amlodipine Besylate (Amlodipine 10 Mg Tab) 10 mg PO DAILY [facility] Last Admin: 06/13/23 08:30 Dose: 10 mg Arformoterol Tartrate (Arformoterol Tartrate 15 Mcg/2 Ml Vial.Neb) 15 mcg IH BIDRESP [facility] Last Admin: 06/13/23 08:10 Dose: 15 mcg Aspirin (Aspirin 81 Mg Chewable Tablet) 81 mg PO DAILY [facility] Last Admin: 06/13/23 08:30 Dose: 81 mg Atorvastatin Calcium (Atorvastatin 80 Mg Tab) 80 mg PO BEDTIME [facility] Last Admin: 06/13/23 20:26 Dose: 80 mg Cholecalciferol (Vitamin D 5,000 Unit Cap) 5,000 unit PO DAILY [facility] Last Admin: 06/13/23 08:30 Dose: 5,000 unit Docusate Sodium (Docusate Na 100 Mg Cap) 100 mg PO BID [facility] Last Admin: 06/13/23 20:26 Dose: 100 mg Ipratropium Standard (Ipratropium Brom 0.5mg/2.5ml) 0.5 mg NEB [id number] [facility] Last Admin: 06/13/23 13:15 Dose: 0.5 mg Levalbuterol HCl (Levalbuterol 0.63 Mg/3 Ml Neb) 0.63 mg NEB [id number] [facility] Last Admin: 06/13/23 13:15 Dose: 0.63 mg Levalbuterol HCl (Levalbuterol 0.63 Mg/3 Ml Neb) 0.63 mg NEB [id number] PRN PRN Reason: SHORTNESS OF BREATH Sevelamer Carbonate (Sevelamer Carbonate 800 Mg Tablet) 800 mg PO TIDWM [facility] Last Admin: 06/13/23 17:56 Dose: 800 mg Tamsulosin HCl (Tamsulosin 0.4 Mg Sr Cap) 0.4 mg PO DAILY [facility] Last Admin: 06/13/23 10:45 Dose: 0.4 mg Microbiology Results 06/10/23 11:15 Blood - Blood Aerobic Blood Culture - Preliminary No growth in 24 hours. 06/10/23 11:15 Blood - Blood Anaerobic Blood Culture - Preliminary No growth in 24 hours. 06/10/23 11:35 Blood - Blood Aerobic Blood Culture - Preliminary No growth in 24 hours. 06/10/23 11:35 Blood - Blood Anaerobic Blood Culture - Preliminary No growth in 24 hours. 06/10/23 11:35 Nasopharnyx Influenza Type A Antigen Screen - Final 06/10/23 11:35 Nasopharnyx Influenza Type B Antigen Screen - Final Assessment/ Plan: Nephrology No dyspnea. LYNN No chest pain No acute events overnight Vitals, medications, blood work and imaging reviewed in the chart General: In no apparent distress, Oriented x3, Cooperative HEENT: Atraumatic Neck: Supple Respiratory: Expiratory wheezes Cardiovascular: Regular rate/rhythm. LE Edema 1+ Gastrointestinal: Soft and benign, Non-distended Musculoskeletal: No clubbing, No contractures Integumentary: No rashes, No cyanosis Neurological: Normal speech Still Light Blood work reviewed in the chart Imagings Data: [facility] 11[facility] CLINICAL HISTORY: DYSPNEA COMPARISON: Chest Single View dated 03/21/2023; Chest Single View dated 03/21/2023; Chest Single View dated 02/20/2023; Chest Single View dated 02/03/2023 TECHNIQUE: Portable AP view of the chest. FINDINGS: Patchy bilateral airspace opacities more pronounced on the left, with suspected small effusion. Central interstitial prominence as well. No pneumothorax. The cardiomediastinal contours are unremarkable. IMPRESSION: Patchy bilateral airspace opacities, may reflect pulmonary edema and/or pneumonia. Conclusions/Impression: ESRD CKD V with Proteinuria -No NSAIDs -Continue Still catheter -Consult surgery for tunneled HD CVC -Arrange for HD -Consult social work for HD placement HTN with CKD/ CHF -Continue Amlodipine Diastolic CHF, A/C -Low sodium diet -Continue Furosemide -CXR reviewed DM II with CKD -RISS prn Anemia in CKD -Retacrit PRN CKD MBD -Continue Cholecalciferol -Continue Renvela Case reviewed with Dr. Wilkerson & Dr. Hills
[2023-06-13] MEDS ORDERED: NA CHLORIDE 0.9% 1,000 ML IV PRN (21:17)
[2023-06-13] MEDS ORDERED: MANNITOL 25% 12.5 GM/50 ML VIAL IV PRN (21:17)
[2023-06-13] MEDS ORDERED: ALBUMIN HUMAN 25% 50 ML IV SCH (22:00)
[2023-06-13] MEDS: FUROSEMIDE 40 MG/4 ML VIAL ONE (23:39)
[2023-06-14] MEDS: EPOETIN ALFA 10,000 UNIT/ML VIAL IV SCH (03:15)
[2023-06-14 04:20] LABS: Absolute Basophils 0.1 K/uL (0-0.5); Absolute Neutrophil 4.6 K/uL (1.8-8.0); Basophils % 0.8 % (0-1.3); Eosinophils % 0.6 % (0-4.4); Hematocrit 22.4 % (39.6-49.0); Hemoglobin 7.4 g/dL (13.6-17.9); Lymphocytes % 15.3 % (15.3-44.8); MCH 30.3 pg (27.0-35.0); MCV 91.8 fL (80-100); MPV 7.2 fL (7.6-11.3); Monocytes % 15.1 % (3.3-12.3); Neutrophils % 68.2 % (41.7-73.7); Nucleated Red Blood Cells % 0.2 % (0-0); Platelets 271 thou/uL (152-406); RBC Red Blood Cell Count 2.43 M/uL (4.33-5.43); Red Cell Distribution Width 16.7 % (12.1-15.2)
[2023-06-14 04:47] LABS: Anion Gap 6.2 mEq/L (5.0-15.0); Magnesium 2.1 mg/dL (1.6-2.4); Phosphorus 4.8 mg/dL (2.5-4.9); Potassium 4.2 mEq/L (3.5-5.1)
[2023-06-14] MEDS ORDERED: propofoL 200 MG/20 ML VIAL IV ONE (08:58)
[2023-06-14] MEDS ORDERED: FENTANYL CITR 100 MCG/2 ML ONE (08:58)
[2023-06-14] MEDS ORDERED: ONDANSETRON 4 MG/2 ML VIAL ONE (08:58)
[2023-06-14] MEDS ORDERED: LIDOCAINE 2% MPF 5 ML VIAL ONE (08:58)
[2023-06-14] MEDS: LIDOCAINE 1% MPF 30 ML VIAL ONE (09:12)
[2023-06-14] MEDS: NS 0.9% VIAL 10 ML ONE (09:12)
[2023-06-14] MEDS: HEPARIN 5000 UNIT/ML 1 ML VIAL ONE (09:13)
[2023-06-14] MEDS: NA CHLORIDE 0.9% 100 ML ONE (09:13)
[2023-06-14] MEDS: NA CHLORIDE 0.9% 500 ML ONE (09:30)
[2023-06-14] MEDS ORDERED: dexAMETHasone 10 MG/ML VIAL ONE (09:54)
[2023-06-14] MEDS: CEFAZOLIN SODIUM 2 GM/VIAL ONE (09:57)
[2023-06-14] MEDS ORDERED: EPHEDRINE SULF 50 MG/ML VIAL ONE (09:59)
--- NOTE | 2023-06-14 10:26 | P.OP ---
Date of Service: 06/14/23 Preop diagnosis: End-stage renal disease Postop diagnosis: Same Procedure performed: Placement of right IJ tunneled dialysis catheter with utilization of ultrasound and fluoroscopy Surgeon: Vinh Hills MD Seal Extrusion Operator: None Estimated blood loss: Minimal Specimen: None Findings: Normal anatomy Anesthesia: General Complications: None Drains: None Fluids and blood products: Nonapplicable Disposition: Recovery room Operative note: Patient brought to the OR and placed in supine position. General anesthesia began. Patient prepped and draped in the usual sterile fashion. Marcaine 0.5% infiltrated locally. Ultrasound device used to identify the right internal jugular vein. 18-gauge needle used to access the right internal jugular vein and guidewire passed. Position confirmed with fluoroscopy. A counterincision made on the right anterior chest. Tunneling device used to tunnel the catheter between the 2 wounds. Seldinger technique utilized. The dialysis catheter placed in the superior vena cava and position confirmed with fluoroscopy. Catheter flushed with heparin and packed with heparin with good blood flow. 3-0 chromic used to reapproximate subcutaneous tissue and close skin. 3-0 nylon used to secure the catheter to the chest wall. Sterile dressing applied. Patient awakened and taken to recovery room in good general condition. A chest x-ray has been ordered. CC: Dr. Hoffman and Dr. Wilkerson's office
--- NOTE | 2023-06-14 11:05 | RAD REPORT ---
EXAM DESCRIPTION: RAD - Chest Single View - 06/14/2023 10:57 am CLINICAL HISTORY: Status post Tesio catheter placement COMPARISON: Chest Pa And Lat (2 Views) dated 06/12/2023; Chest Single View dated 06/10/2023; Chest Sing le View dated 03/21/2023; Chest Single View dated 03/21/2023; Head C Spine Mpr Wo Con dated 08/01/2022; Head C Spine Cap Wo Con dated 07/24/2022 FINDINGS: Lines: Right IJ approach dialysis catheter with distal tip overlying the distal SVC. Lungs: Hazy bilateral airspace disease likely reflecting pulmonary edema. Rounded nodule overlying th e left lung apex is again identified and better in evaluated on prior chest CT such as on 07/23/2022. Pleural: Bilateral pleural effusions . Cardiac: Similar cardiomegaly. Mediastinum: Within normal limits. Bones: No acute fractures. ACDF in the cervical spine. Other: None IMPRESSION: Interval placement of right IJ approach dialysis catheter. No pneumothorax. The tip over lies the SVC in satisfactory position. Pulmonary edema is still present.
--- NOTE | 2023-06-14 11:20 | RAD REPORT ---
EXAM DESCRIPTION: RAD - Fluoroscopy <1 Hour - 06/14/2023 10:38 am CLINICAL HISTORY: TESSIO COMPARISON: No comparisons FINDINGS/IMPRESSION: Four intraoperative fluoroscopic images were submitted demonstrating placement of a right IJ approach dialysis catheter with tip overlying the SVC. No radiologist was available for the procedure, nor will any image interpretation be provided. John jiménez refer to the procedural report for additional details Fluoro time: 0 minutes Cumulative dose: 0.8 mGy
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
[2023-06-14] MEDS: ALBUMIN HUMAN 25% 100 ML IV ONE (12:22)
--- NOTE | 2023-06-14 13:36 | PREOPCON ---
Date of Consultation: 06/13/2023 Reason For Consultation: The patient needs dialysis. History Of Present Illness: The patient is a 73-year-old gentleman who presented to the emergency ro om with shortness of breath at rest with cough, fever, and he had extensive workup done and has end-s tage renal disease and requires hemodialysis and I was asked to place a tunneled catheter for that pu rpose. The patient has multiple medical problems. Denies any fever or chills. No current cough. H e did have some cough when he came in and some fever and chills when he came in. Review of Systems: No sore throat, runny nose, headaches, or dizziness. No chest pain. Review of Systems: Otherwise unremarkable. Past Medical History: Diastolic CHF, type 2 diabetes, chronic kidney disease stage 4, on admission, atrial fibrillation, COPD. Past Surgical History: Appendectomy, neck surgery, left knee surgery. Allergies: NONE. Social History: The patient used to smoke in the past, does not currently and does not drink alcohol . Physical Examination: Vital Signs: Stable. He is currently afebrile. General: He is awake and alert. Head and neck: No masses. Chest: Clear. Heart: S1, S2. Abdomen: Soft. Extremities: Neurovascularly intact. Neuro: Nonfocal. Laboratory Data: His H and H are 7.4 and 22.4, platelets are 271. INR is 1.08. His BUN is 91, crea tinine is 4.85. Assessment: A 73-year-old gentleman with multiple medical problems with end-stage renal disease, req uiring hemodialysis. Recommendation: We will proceed with placement of a Tesio catheter. The patient understands risks, benefits, and alternatives and agrees to procedure. /MODL Voice ID: [id number] Report ID: [id number]
[2023-06-14 19:51] LABS: Barbiturates NEGATIVE (NEGATIVE); Benzodiazepines NEGATIVE (NEGATIVE); Cocaine NEGATIVE (NEGATIVE); METHAMPHETAM NEGATIVE (NEGATIVE); Methadone NEGATIVE (NEGATIVE); Opiates POSITIVE (NEGATIVE); Phencyclidine NEGATIVE (NEGATIVE); THC Cannibis NEGATIVE (NEGATIVE)
--- NOTE | 2023-06-14 22:00 | P.PN ---
Date of Service: 06/14/23 Vital Signs Temp Pulse Resp BP Pulse Ox 97.6 F 77 18 165/74 H 95 06/14/23 20:00 06/14/23 20:00 06/14/23 20:00 06/14/23 20:00 06/14/23 20:00 Medications Acetaminophen (Acetaminophen 500 Mg Tab) 500 mg PO Q4HP PRN PRN Reason: Pain scale 2-4 (Mild) Last Admin: 06/14/23 19:47 Dose: 500 mg Hydrocodone Bitart/Acetaminophen (Hydrocodone/Apap 5/325 Mg Tab) 1 tab PO Q12H PRN PRN Reason: Pain scale 5-7 (Moderate) Last Admin: 06/14/23 12:46 Dose: 1 tab Amlodipine Besylate (Amlodipine 10 Mg Tab) 10 mg PO DAILY [facility] Last Admin: 06/14/23 08:54 Dose: Not Given Arformoterol Tartrate (Arformoterol Tartrate 15 Mcg/2 Ml Vial.Neb) 15 mcg IH BIDRESP [facility] Last Admin: 06/14/23 20:13 Dose: 15 mcg Aspirin (Aspirin 81 Mg Chewable Tablet) 81 mg PO DAILY [facility] Last Admin: 06/14/23 08:54 Dose: Not Given Atorvastatin Calcium (Atorvastatin 80 Mg Tab) 80 mg PO BEDTIME [facility] Last Admin: 06/14/23 19:48 Dose: 80 mg Cholecalciferol (Vitamin D 5,000 Unit Cap) 5,000 unit PO DAILY [facility] Last Admin: 06/14/23 08:54 Dose: Not Given Docusate Sodium (Docusate Na 100 Mg Cap) 100 mg PO BID [facility] Last Admin: 06/14/23 19:48 Dose: 100 mg Epoetin Etienne (Epoetin Etienne 10,000 Unit/Ml Vial) 10,000 unit IV EVERY HD [facility] Last Admin: 06/14/23 03:15 Dose: 10,000 unit Heparin Sodium (Porcine) (Heparin 1,000 Unit/Ml Vial) 6,000 unit IV EVERY HD PRN PRN Reason: AFTER EACH Last Admin: 06/14/23 15:17 Dose: 6,000 unit Albumin Human (Albumin 25%) 50 mls @ 100 mls/hr IV EVERY HD [facility] Ipratropium [place] (Ipratropium Brom 0.5mg/2.5ml) 0.5 mg NEB [id number] [facility] Last Admin: 06/14/23 20:14 Dose: 0.5 mg Levalbuterol HCl (Levalbuterol 0.63 Mg/3 Ml Neb) 0.63 mg NEB [id number] [facility] Last Admin: 06/14/23 20:13 Dose: 0.63 mg Levalbuterol HCl (Levalbuterol 0.63 Mg/3 Ml Neb) 0.63 mg NEB [id number] PRN PRN Reason: SHORTNESS OF BREATH Mannitol (Mannitol 25% 12.5 Gm/50 Ml Vial) 12.5 gm IV EVERY HD PRN PRN Reason: Titrate to SBP (MUST DEFINE) Sevelamer Carbonate (Sevelamer Carbonate 800 Mg Tablet) 800 mg PO TIDWM [facility] Last Admin: 06/14/23 16:39 Dose: 800 mg Tamsulosin HCl (Tamsulosin 0.4 Mg Sr Cap) 0.4 mg PO DAILY [facility] Last Admin: 06/14/23 08:54 Dose: Not Given Microbiology Results 06/10/23 11:15 Blood - Blood Aerobic Blood Culture - Preliminary No growth in 24 hours. 06/10/23 11:15 Blood - Blood Anaerobic Blood Culture - Preliminary No growth in 24 hours. 06/10/23 11:35 Blood - Blood Aerobic Blood Culture - Preliminary No growth in 24 hours. 06/10/23 11:35 Blood - Blood Anaerobic Blood Culture - Preliminary No growth in 24 hours. 06/10/23 11:35 Nasopharnyx Influenza Type A Antigen Screen - Final 06/10/23 11:35 Nasopharnyx Influenza Type B Antigen Screen - Final Assessment/ Plan: Nephrology No dyspnea No chest pain Weakness and fatigue No acute events overnight Vitals, medications, blood work and imaging reviewed in the chart General: In no apparent distress, Oriented x3, Cooperative HEENT: Atraumatic Neck: Supple Respiratory: Expiratory wheezes Cardiovascular: Regular rate/rhythm. LE Edema 1+ Gastrointestinal: Soft and benign, Non-distended Musculoskeletal: No clubbing, No contractures Integumentary: No rashes, No cyanosis Neurological: Normal speech Still Light Right chest CVC Blood work reviewed in the chart Imagings Data: [facility] 11[facility]20 am CLINICAL HISTORY: DYSPNEA COMPARISON: Chest Single View dated 03/21/2023; Chest Single View dated 03/21/2023; Chest Single View dated 02/20/2023; Chest Single View dated 02/03/2023 TECHNIQUE: Portable AP view of the chest. FINDINGS: Patchy bilateral airspace opacities more pronounced on the left, with suspected small effusion. Central interstitial prominence as well. No pneumothorax. The cardiomediastinal contours are unremarkable. IMPRESSION: Patchy bilateral airspace opacities, may reflect pulmonary edema and/or pneumonia. Conclusions/Impression: ESRD CKD V with Proteinuria -No NSAIDs -Continue Still catheter -Tunneled HD CVC placed & first HD 06-14-23 -Next HD tomorrow -HD placement pending HTN with CKD/ CHF -Continue Amlodipine Diastolic CHF, A/C -Low sodium diet -Continue Furosemide DM II with CKD -RISS prn Anemia in CKD -Retacrit PRN CKD MBD -Continue Cholecalciferol -Continue [facility] Hospitalist note reviewed
[2023-06-15 07:03] LABS: Absolute Lymphocytes (CBC) 0.8 K/uL (0.7-4.9); Absolute Monocytes 0.7 K/uL (0.1-1.3); Absolute Neutrophil 5.4 K/uL (1.8-8.0); Hematocrit 21.6 % (39.6-49.0); Hemoglobin 7.1 g/dL (13.6-17.9); Lymphocytes % 11.8 % (15.3-44.8); MCH 30.4 pg (27.0-35.0); MPV 7.1 fL (7.6-11.3); Monocytes % 10.6 % (3.3-12.3); Neutrophils % 77.6 % (41.7-73.7); Nucleated Red Blood Cells % 0.4 % (0-0); Platelets 255 thou/uL (152-406); RBC Red Blood Cell Count 2.35 M/uL (4.33-5.43); Red Cell Distribution Width 17.1 % (12.1-15.2)
[2023-06-15 07:13] LABS: Anion Gap 9.2 mEq/L (5.0-15.0); Phosphorus 3.5 mg/dL (2.5-4.9); Potassium 4.2 mEq/L (3.5-5.1)
[2023-06-15] MEDS: BUMETANIDE 1 MG TABLET PO SCH (09:33)
[2023-06-15] MEDS ORDERED: NA CHLORIDE 0.9% 250 ML IV SCH (11:00)
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
[2023-06-15 14:31] LABS: Hematocrit 25.7 % (39.6-49.0); Hemoglobin 8.4 g/dL (13.6-17.9)
--- NOTE | 2023-06-15 21:48 | P.PN ---
Date of Service: 06/15/23 Vital Signs Temp Pulse Resp BP Pulse Ox 97.5 F 66 20 172/86 H 95 06/15/23 20:00 06/15/23 20:00 06/15/23 20:00 06/15/23 20:00 06/15/23 20:00 Medications Acetaminophen (Acetaminophen 500 Mg Tab) 500 mg PO Q4HP PRN PRN Reason: Pain scale 2-4 (Mild) Last Admin: 06/15/23 21:07 Dose: 500 mg Hydrocodone Bitart/Acetaminophen (Hydrocodone/Apap 5/325 Mg Tab) 1 tab PO Q12H PRN PRN Reason: Pain scale 5-7 (Moderate) Last Admin: 06/15/23 13:03 Dose: 1 tab Amlodipine Besylate (Amlodipine 10 Mg Tab) 10 mg PO DAILY [facility] Last Admin: 06/15/23 09:34 Dose: 10 mg Arformoterol Tartrate (Arformoterol Tartrate 15 Mcg/2 Ml Vial.Neb) 15 mcg IH BIDRESP [facility] Last Admin: 06/15/23 20:49 Dose: 15 mcg Aspirin (Aspirin 81 Mg Chewable Tablet) 81 mg PO DAILY [facility] Last Admin: 06/15/23 09:33 Dose: 81 mg Atorvastatin Calcium (Atorvastatin 80 Mg Tab) 80 mg PO BEDTIME [facility] Last Admin: 06/15/23 21:06 Dose: 80 mg Bumetanide (Bumetanide 1 Mg Tablet) 1 mg PO BIDAC [facility] Last Admin: 06/15/23 17:05 Dose: 1 mg Cholecalciferol (Vitamin D 5,000 Unit Cap) 5,000 unit PO DAILY [facility] Last Admin: 06/15/23 09:34 Dose: 5,000 unit Docusate Sodium (Docusate Na 100 Mg Cap) 100 mg PO BID [facility] Last Admin: 06/15/23 21:07 Dose: 100 mg Epoetin Etienne (Epoetin Etienne 10,000 Unit/Ml Vial) 10,000 unit IV EVERY HD [facility] Last Admin: 06/14/23 03:15 Dose: 10,000 unit Heparin Sodium (Porcine) (Heparin 1,000 Unit/Ml Vial) 6,000 unit IV EVERY HD PRN PRN Reason: AFTER EACH Last Admin: 06/14/23 15:17 Dose: 6,000 unit Albumin Human (Albumin 25%) 50 mls @ 100 mls/hr IV EVERY HD [facility] Sodium Chloride (Sodium Chloride) 250 mls @ 0 mls/hr IV .Q0M RYAN Ipratropium [place] (Ipratropium Brom 0.5mg/2.5ml) 0.5 mg NEB [id number] [facility] Last Admin: 06/15/23 20:49 Dose: 0.5 mg Levalbuterol HCl (Levalbuterol 0.63 Mg/3 Ml Neb) 0.63 mg NEB [id number] [facility] Last Admin: 06/15/23 20:49 Dose: 0.63 mg Levalbuterol HCl (Levalbuterol 0.63 Mg/3 Ml Neb) 0.63 mg NEB [id number] PRN PRN Reason: SHORTNESS OF BREATH Mannitol (Mannitol 25% 12.5 Gm/50 Ml Vial) 12.5 gm IV EVERY HD PRN PRN Reason: Titrate to SBP (MUST DEFINE) Sevelamer Carbonate (Sevelamer Carbonate 800 Mg Tablet) 800 mg PO TIDWM [facility] Last Admin: 06/15/23 17:05 Dose: 800 mg Tamsulosin HCl (Tamsulosin 0.4 Mg Sr Cap) 0.4 mg PO DAILY [facility] Last Admin: 06/15/23 09:34 Dose: 0.4 mg Microbiology Results 06/10/23 11:15 Blood - Blood Aerobic Blood Culture - Final No growth in 5 days. 06/10/23 11:15 Blood - Blood Anaerobic Blood Culture - Final No growth in 5 days. 06/10/23 11:35 Blood - Blood Aerobic Blood Culture - Final No growth in 5 days. 06/10/23 11:35 Blood - Blood Anaerobic Blood Culture - Final No growth in 5 days. 06/10/23 11:35 Nasopharnyx Influenza Type A Antigen Screen - Final 06/10/23 11:35 Nasopharnyx Influenza Type B Antigen Screen - Final Assessment/ Plan: Nephrology No dyspnea No chest pain Feeling better No acute events overnight Vitals, medications, blood work and imaging reviewed in the chart General: In no apparent distress, Oriented x3, Cooperative HEENT: Atraumatic Neck: Supple Respiratory: Expiratory wheezes Cardiovascular: Regular rate/rhythm. LE Edema 1+ Gastrointestinal: Soft and benign, Non-distended Musculoskeletal: No clubbing, No contractures Integumentary: No rashes, No cyanosis Neurological: Normal speech Still Light Right chest CVC Blood work reviewed in the chart Imagings Data: EXAM DESCRIPTION: RADChest Single View06/10/2023 11:20 am CLINICAL HISTORY: DYSPNEA COMPARISON: Chest Single View dated 03/21/2023; Chest Single View dated 03/21/2023; Chest Single View dated 02/20/2023; Chest Single View dated 02/03/2023 TECHNIQUE: Portable AP view of the chest. FINDINGS: Patchy bilateral airspace opacities more pronounced on the left, with suspected small effusion. Central interstitial prominence as well. No pneumothorax. The cardiomediastinal contours are unremarkable. IMPRESSION: Patchy bilateral airspace opacities, may reflect pulmonary edema and/or pneumonia. Conclusions/Impression: ESRD CKD V with Proteinuria -No NSAIDs -Continue Still catheter -Tunneled HD CVC placed & first HD 06-14-23 -Next HD tomorrow -HD placement pending -Seen and examined on HD HTN with CKD/ CHF -Continue Amlodipine -Start Losartan BID Diastolic CHF, A/C -Low sodium diet -Continue Furosemide DM II with CKD -RISS prn Anemia in CKD -Retacrit PRN CKD MBD -Continue Cholecalciferol -Continue Renvela Hospitalist note reviewed
[2023-06-15] MEDS: LOSARTAN POTASSIUM 50 MG TABLET PO SCH (22:02)
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
--- NOTE | 2023-06-16 21:45 | P.PN ---
Date of Service: 06/16/23 Vital Signs Temp Pulse Resp BP Pulse Ox 98.6 F 59 15 168/76 H 96 06/16/23 16:00 06/16/23 16:00 06/16/23 16:00 06/16/23 16:00 06/16/23 16:00 Medications Acetaminophen (Acetaminophen 500 Mg Tab) 500 mg PO Q4HP PRN PRN Reason: Pain scale 2-4 (Mild) Last Admin: 06/16/23 10:34 Dose: 500 mg Hydrocodone Bitart/Acetaminophen (Hydrocodone/Apap 5/325 Mg Tab) 1 tab PO Q12H PRN PRN Reason: Pain scale 5-7 (Moderate) Last Admin: 06/16/23 14:40 Dose: 1 tab Amlodipine Besylate (Amlodipine 10 Mg Tab) 10 mg PO DAILY [facility] Last Admin: 06/16/23 08:04 Dose: 10 mg Arformoterol Tartrate (Arformoterol Tartrate 15 Mcg/2 Ml Vial.Neb) 15 mcg IH BIDRESP [facility] Last Admin: 06/16/23 21:09 Dose: 15 mcg Aspirin (Aspirin 81 Mg Chewable Tablet) 81 mg PO DAILY [facility] Last Admin: 06/16/23 08:04 Dose: 81 mg Atorvastatin Calcium (Atorvastatin 80 Mg Tab) 80 mg PO BEDTIME [facility] Last Admin: 06/16/23 20:56 Dose: 80 mg Bumetanide (Bumetanide 1 Mg Tablet) 1 mg PO BIDAC [facility] Last Admin: 06/16/23 17:26 Dose: 1 mg Cholecalciferol (Vitamin D 5,000 Unit Cap) 5,000 unit PO DAILY [facility] Last Admin: 06/16/23 08:04 Dose: 5,000 unit Docusate Sodium (Docusate Na 100 Mg Cap) 100 mg PO BID [facility] Last Admin: 06/16/23 20:56 Dose: 100 mg Epoetin Etienne (Epoetin Etienne 10,000 Unit/Ml Vial) 10,000 unit IV EVERY HD [facility] Last Admin: 06/14/23 03:15 Dose: 10,000 unit Heparin Sodium (Porcine) (Heparin 1,000 Unit/Ml Vial) 6,000 unit IV EVERY HD PRN PRN Reason: AFTER EACH Last Admin: 06/14/23 15:17 Dose: 6,000 unit Albumin Human (Albumin 25%) 50 mls @ 100 mls/hr IV EVERY HD [facility] Sodium Chloride (Sodium Chloride) 250 mls @ 0 mls/hr IV .Q0M [facility] Ipratropium [place] (Ipratropium Brom 0.5mg/2.5ml) 0.5 mg NEB [id number] [facility] Last Admin: 06/16/23 21:10 Dose: 0.5 mg Levalbuterol HCl (Levalbuterol 0.63 Mg/3 Ml Neb) 0.63 mg NEB [id number] [facility] Last Admin: 06/16/23 21:09 Dose: 0.63 mg Levalbuterol HCl (Levalbuterol 0.63 Mg/3 Ml Neb) 0.63 mg NEB [id number] PRN PRN Reason: SHORTNESS OF BREATH Losartan Potassium (Losartan Potassium 50 Mg Tablet) 50 mg PO BID [facility] Last Admin: 06/16/23 20:56 Dose: 50 mg Mannitol (Mannitol 25% 12.5 Gm/50 Ml Vial) 12.5 gm IV EVERY HD PRN PRN Reason: Titrate to SBP (MUST DEFINE) Sevelamer Carbonate (Sevelamer Carbonate 800 Mg Tablet) 800 mg PO TIDWM [facility] Last Admin: 06/16/23 17:26 Dose: 800 mg Tamsulosin HCl (Tamsulosin 0.4 Mg Sr Cap) 0.4 mg PO DAILY [facility] Last Admin: 06/16/23 08:03 Dose: 0.4 mg Microbiology Results 06/10/23 11:15 Blood - Blood Aerobic Blood Culture - Final No growth in 5 days. 06/10/23 11:15 Blood - Blood Anaerobic Blood Culture - Final No growth in 5 days. 06/10/23 11:35 Blood - Blood Aerobic Blood Culture - Final No growth in 5 days. 06/10/23 11:35 Blood - Blood Anaerobic Blood Culture - Final No growth in 5 days. 06/10/23 11:35 Nasopharnyx Influenza Type A Antigen Screen - Final 06/10/23 11:35 Nasopharnyx Influenza Type B Antigen Screen - Final Assessment/ Plan: Nephrology No dyspnea No chest pain Feeling better No acute events overnight Vitals, medications, blood work and imaging reviewed in the chart General: In no apparent distress, Oriented x3, Cooperative HEENT: Atraumatic Neck: Supple Respiratory: Expiratory wheezes Cardiovascular: Regular rate/rhythm. LE Edema 1-2+ Gastrointestinal: Soft and benign, Non-distended Musculoskeletal: No clubbing, No contractures Integumentary: No rashes, No cyanosis Neurological: Normal speech Still Light Right chest CVC Blood work reviewed in the chart Imagings Data: EXAM DESCRIPTION: RADChest Single View06/10/2023 11:20 am CLINICAL HISTORY: DYSPNEA COMPARISON: Chest Single View dated 03/21/2023; Chest Single View dated 03/21/2023; Chest Single View dated 02/20/2023; Chest Single View dated 02/03/2023 TECHNIQUE: Portable AP view of the chest. FINDINGS: Patchy bilateral airspace opacities more pronounced on the left, with suspected small effusion. Central interstitial prominence as well. No pneumothorax. The cardiomediastinal contours are unremarkable. IMPRESSION: Patchy bilateral airspace opacities, may reflect pulmonary edema and/or pneumonia. Conclusions/Impression: ESRD CKD V with Proteinuria -No NSAIDs -Continue Still catheter -Tunneled HD CVC placed & first HD 06-14-23 -Next HD tomorrow -HD placement pending HTN with CKD/ CHF -Continue Amlodipine -Continue Losartan BID Diastolic CHF, A/C -Low sodium diet -Continue Furosemide DM II with CKD -RISS prn Anemia in CKD -Retacrit PRN CKD MBD -Continue Cholecalciferol -Continue Renvela Hospitalist note reviewed
[2023-06-16] MEDS: HYDRALAZINE HCL 20 MG/ML VIAL IV ONE (23:14)
--- NOTE | 2023-06-17 12:46 | P.DS ---
Admission Date: 06/10/23 Discharge Date: 06/17/23 Primary Care Provider: Dr. Wilkerson Disposition: ROUTINE DISCHARGE Reason for Admission: CHF exacerbation - Problems (1) Chronic renal failure Current Visit: No Status: Acute Qualifiers: Chronic kidney disease stage: stage 5 Qualified Code(s): N18.5 - Chronic kidney disease, stage 5 (2) CHF exacerbation Current Visit: No Status: Acute Qualifiers: Heart failure type: diastolic Qualified Code(s): I50.33 - Acute on chronic diastolic (congestive) heart failure (3) COPD (chronic obstructive pulmonary disease) Current Visit: No Status: Chronic Qualifiers: COPD type: chronic bronchitis (4) Type 2 diabetes mellitus Current Visit: No Status: Acute Qualifiers: Diabetes mellitus long term care social worker insulin use: without long term care social worker use Diabetes case litus complication status: with kidney complications Diabetes mellitus complication detail: with chronic kidney disease Chronic kidney disease stage: stage 4 (severe) Qualified Code(s): E11.22 - Type 2 diabetes mellitus with diabetic chronic kidney disease; N18.4 - Chronic kidney disease, stage 4 (severe) (5) Drug abuse Current Visit: No Status: Chronic (6) Cervicalgia Current Visit: Yes Status: Chronic (7) Anemia Current Visit: Yes Status: Acute Qualifiers: Anemia type: due to chronic kidney disease Chronic kidney disease stage: on chronic dialysis Qualified Code(s): N18.6 - End stage renal disease; D63.1 - Anemia in chronic kidney disease; Z99.2 - Dependence on renal dialysis Brief History of Present Illness: Patient with a history of copd, chf. He has not been to the clinic in a whlle. States he was feeling bad for the last few weeks. He has been having swelling in the belly and cold legs the last week. States he was feeling worse and came to the ER. He was found to have acute on chronic renal failure. With an elevated bnp. he has pleural effusion on xray. He has a history of drug use. However he denies it at this time. The patient denies being around any cigarette smoke. Hospital Course: Patient was admitted for chf exacerbation and ckd stage 5. After a few days with limited improvement. Hemodialysis was started by Dr. Dean. The patient had a fall on 06/13/23. He was found to have a bottle of 5 pills. Identified as muscle relaxants. 2 more pills were found on Saturday. The patient was a good candidate for In patient rehab. He refused stating he wants to go home. Will oblige once home PT and a dialysis chair is scheduled. Advised about the importance of compliance with his dialysis. Vital Signs/Physical Exam: Temp Pulse Resp BP Pulse Ox 97.6 F 61 16 179/85 H 98 06/17/23 08:00 06/17/23 08:00 06/17/23 08:00 06/17/23 08:00 06/17/23 08:00 General: Alert, In no apparent distress HEENT: Atraumatic, PERRLA, EOMI Neck: Supple, JVD not distended Respiratory: Clear to auscultation bilaterally, Normal air movement Cardiovascular: Regular rate/rhythm, Normal S1 S2 Gastrointestinal: Normal bowel sounds, No tenderness Musculoskeletal: No tenderness Integumentary: No rashes Neurological: Normal speech, Normal tone, Normal affect Lymphatics: No axilla or inguinal lymphadenopathy Laboratory Data at Discharge: WBC 7.00 thou/uL (4.3-10.9) 06/15/23 06:36 Hgb 8.4 g/dL (13.6-17.9) L D 06/15/23 14:05 Hct 25.7 % (39.6-49.0) L 06/15/23 14:05 Plt Count 255 thou/uL (152-406) 06/15/23 06:36 PT 11.9 SECONDS (9.5-12.5) 06/10/23 11:35 INR 1.08 06/10/23 11:35 APTT 34.7 SECONDS (24.3-36.9) 06/10/23 11:35 Sodium 139 mEq/L (136-145) 06/15/23 06:36 Potassium 4.2 mEq/L (3.5-5.1) 06/15/23 06:36 BUN 60 mg/dL (7-18) H 06/15/23 06:36 Creatinine 3.56 mg/dL (0.70-1.30) H 06/15/23 06:36 Glucose 193 mg/dL (74-106) H 06/15/23 06:36 Uric Acid 9.4 mg/dL (3.5-7.2) H 06/12/23 04:16 Phosphorus 3.5 mg/dL (2.5-4.9) 06/15/23 06:36 Magnesium 2.0 mg/dL (1.6-2.4) 06/15/23 06:36 Total Bilirubin 0.3 mg/dL (0.2-1.0) 06/10/23 11:35 AST 14 U/L (15-37) L 06/10/23 11:35 ALT 20 U/L (16-61) 06/10/23 11:35 Alkaline Phosphatase 92 U/L (45-117) 06/10/23 11:35 Triglycerides 51 mg/dL (<150) 06/11/23 06:21 Cholesterol 120 mg/dL (<200) 06/11/23 06:21 HDL Cholesterol 74 mg/dL (40-60) H 06/11/23 06:21 Cholesterol/HDL Ratio 1.62 06/11/23 06:21 Home Medications: Amlodipine Besylate 10 mg PO DAILY 12/16/22 Arformoterol Tartrate 15 mcg IH BID 12/16/22 Budesonide [Pulmicort*] 0.5 mg NEB BID 12/16/22 Bumetanide 0.5 mg PO DAILY 12/16/22 Ergocalciferol (Vitamin D2) [Vitamin D2] 50,000 unit PO EVERY 7TH DAY 12/16/22 Ipratropium/Albuterol Sulfate [Iprat-Albut 0.5-3(2.5) mg/3 ml] 3 ml IH Q6HR 12/16/22 Levothyroxine Sodium [Synthroid] 150 mcg PO DAILY 12/16/22 Magnesium Oxide [Mag 0X*] 400 mg PO DAILY 12/16/22 Oxymetazoline HCl [Afrin] 15 ml IN QOD QID 12/16/22 Fluticasone/Umeclidin/Vilanter [Trelegy Ellipta 100-62.5-25] 1 each IH DAILY 30 Days #30 aero 12/17/22 acetaZOLAMIDE [Diamox*] 250 mg PO DAILY #30 tab 12/18/22 Aspirin Chewable [Aspirin Chewable*] 81 mg PO DAILY 02/03/23 Atorvastatin Calcium [Lipitor] 80 mg PO BEDTIME 02/03/23 Famotidine [Pepcid*] 20 mg PO DAILY 02/03/23 Finasteride [Proscar*] 5 mg PO DAILY 02/03/23 Furosemide [Lasix*] 20 mg PO BIDL 02/03/23 Quetiapine Fumarate [Seroquel] 25 mg PO BID 02/03/23 Sodium Bicarbonate 1,300 mg PO BID 02/03/23 methocarbamoL [Methocarbamol] 1 tab PO Q8HP PRN 02/03/23 Hydrocodone/Acetaminophen [Hydrocodone-Acetamin 5-325 mg] 1 each PO Q12H PRN #10 tab 02/05/23 Ferrous Sulfate [Feosol] 325 mg PO DAILY 30 Days #30 tab 02/22/23 predniSONE [Prednisone] 20 mg PO BID 4 Days #8 tab 02/22/23 Diet: AHA Activity: Ad precious Followup: Kayla Montalvo MD [OUTSIDE PHYSICIAN] - Time spent managing pt's care (in minutes): 35
--- NOTE | 2023-06-17 17:30 | RAD REPORT ---
EXAM DESCRIPTION: RADChest Single View06/17/2023 4:45 pm CLINICAL HISTORY: r/o TB COMPARISON: Chest Single View dated 06/14/2023; Chest Pa And Lat (2 Views) dated 06/12/2023; Chest Sin gle View dated 06/10/2023; Chest Single View dated 03/21/2023 TECHNIQUE: Portable AP view of the chest. FINDINGS: Stable position of right IJ dialysis catheter. Stable central interstitial prominence, lef t retrocardiac opacification, and bilateral basilar small effusions. No significant interval change. No pneumothorax or effusion. The cardiomediastinal contours are unremarkable. IMPRESSION: Stable bibasilar opacities small effusions, favored to represent pulmonary edema.
--- NOTE | 2023-06-17 21:50 | P.PN ---
Date of Service: 06/17/23 Vital Signs Temp Pulse Resp BP Pulse Ox 97.6 F 69 17 159/77 H 98 06/17/23 20:00 06/17/23 20:00 06/17/23 20:00 06/17/23 20:00 06/17/23 20:00 Medications Acetaminophen (Acetaminophen 500 Mg Tab) 500 mg PO Q4HP PRN PRN Reason: Pain scale 2-4 (Mild) Last Admin: 06/17/23 05:23 Dose: 500 mg Hydrocodone Bitart/Acetaminophen (Hydrocodone/Apap 5/325 Mg Tab) 1 tab PO Q12H PRN PRN Reason: Pain scale 5-7 (Moderate) Last Admin: 06/17/23 19:21 Dose: 1 tab Amlodipine Besylate (Amlodipine 10 Mg Tab) 10 mg PO DAILY [facility] Last Admin: 06/17/23 08:55 Dose: 10 mg Arformoterol Tartrate (Arformoterol Tartrate 15 Mcg/2 Ml Vial.Neb) 15 mcg IH BIDRESP [facility] Last Admin: 06/17/23 20:49 Dose: 15 mcg Aspirin (Aspirin 81 Mg Chewable Tablet) 81 mg PO DAILY [facility] Last Admin: 06/17/23 08:55 Dose: 81 mg Atorvastatin Calcium (Atorvastatin 80 Mg Tab) 80 mg PO BEDTIME [facility] Last Admin: 06/17/23 20:45 Dose: 80 mg Bumetanide (Bumetanide 1 Mg Tablet) 1 mg PO BIDAC [facility] Last Admin: 06/17/23 16:30 Dose: Not Given Cholecalciferol (Vitamin D 5,000 Unit Cap) 5,000 unit PO DAILY [facility] Last Admin: 06/17/23 08:55 Dose: 5,000 unit Docusate Sodium (Docusate Na 100 Mg Cap) 100 mg PO BID [facility] Last Admin: 06/17/23 20:45 Dose: 100 mg Epoetin Etienne (Epoetin Etienne 10,000 Unit/Ml Vial) 10,000 unit IV EVERY HD [facility] Last Admin: 06/17/23 17:00 Dose: 10,000 unit Heparin Sodium (Porcine) (Heparin 1,000 Unit/Ml Vial) 6,000 unit IV EVERY HD PRN PRN Reason: AFTER EACH Last Admin: 06/17/23 17:33 Dose: 6,000 unit Heparin Sodium (Porcine) (Heparin 1,000 Unit/Ml Vial) 2,000 unit IV EVERY HD PRN PRN Reason: Prevent HD System Clotting Last Admin: 06/17/23 14:27 Dose: 2,000 unit Albumin Human (Albumin 25%) 50 mls @ 100 mls/hr IV EVERY HD [facility] Sodium Chloride (Sodium Chloride) 250 mls @ 0 mls/hr IV .Q0M [facility] Ipratropium Happy (Ipratropium Brom 0.5mg/2.5ml) 0.5 mg NEB [id number] [facility] Last Admin: 06/17/23 20:49 Dose: 0.5 mg Levalbuterol HCl (Levalbuterol 0.63 Mg/3 Ml Neb) 0.63 mg NEB [id number] [facility] Last Admin: 06/17/23 20:49 Dose: 0.63 mg Levalbuterol HCl (Levalbuterol 0.63 Mg/3 Ml Neb) 0.63 mg NEB [id number] PRN PRN Reason: SHORTNESS OF BREATH Losartan Potassium (Losartan Potassium 50 Mg Tablet) 50 mg PO BID [facility] Last Admin: 06/17/23 20:45 Dose: 50 mg Mannitol (Mannitol 25% 12.5 Gm/50 Ml Vial) 12.5 gm IV EVERY HD PRN PRN Reason: Titrate to SBP (MUST DEFINE) Sevelamer Carbonate (Sevelamer Carbonate 800 Mg Tablet) 800 mg PO TIDWM [facility] Last Admin: 06/17/23 17:00 Dose: Not Given Tamsulosin HCl (Tamsulosin 0.4 Mg Sr Cap) 0.4 mg PO DAILY [facility] Last Admin: 06/17/23 08:55 Dose: 0.4 mg Microbiology Results 06/10/23 11:15 Blood - Blood Aerobic Blood Culture - Final No growth in 5 days. 06/10/23 11:15 Blood - Blood Anaerobic Blood Culture - Final No growth in 5 days. 06/10/23 11:35 Blood - Blood Aerobic Blood Culture - Final No growth in 5 days. 06/10/23 11:35 Blood - Blood Anaerobic Blood Culture - Final No growth in 5 days. 06/10/23 11:35 Nasopharnyx Influenza Type A Antigen Screen - Final 06/10/23 11:35 Nasopharnyx Influenza Type B Antigen Screen - Final Assessment/ Plan: Nephrology No dyspnea No chest pain Feeling better No acute events overnight Vitals, medications, blood work and imaging reviewed in the chart General: In no apparent distress, Oriented x3, Cooperative HEENT: Atraumatic Neck: Supple Respiratory: Expiratory wheezes Cardiovascular: Regular rate/rhythm. LE Edema 1-2+ Gastrointestinal: Soft and benign, Non-distended Musculoskeletal: No clubbing, No contractures Integumentary: No rashes, No cyanosis Neurological: Normal speech Still Light Right chest CVC Blood work reviewed in the chart Imagings Data: EXAM DESCRIPTION: RADChest Single View06/10/2023 11:20 am CLINICAL HISTORY: DYSPNEA COMPARISON: Chest Single View dated 03/21/2023; Chest Single View dated 03/21/2023; Chest Single View dated 02/20/2023; Chest Single View dated 02/03/2023 TECHNIQUE: Portable AP view of the chest. FINDINGS: Patchy bilateral airspace opacities more pronounced on the left, with suspected small effusion. Central interstitial prominence as well. No pneumothorax. The cardiomediastinal contours are unremarkable. IMPRESSION: Patchy bilateral airspace opacities, may reflect pulmonary edema and/or pneumonia. Conclusions/Impression: ESRD CKD V with Proteinuria -No NSAIDs -Continue Still catheter -Tunneled HD CVC placed & first HD 06-13-24 -HD today -HD placement pending HTN with CKD/ CHF -Continue Amlodipine -Continue Losartan BID Diastolic CHF, A/C -Low sodium diet -Continue Furosemide DM II with CKD -RISS prn Anemia in CKD -Retacrit PRN CKD MBD -Continue Cholecalciferol -Continue Renvela Hospitalist note reviewed
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
[2023-06-18 11:00] VITALS: O2SAT 89
[2023-06-18 12:28] VITALS: BP 167/77; TEMP 98.4
--- NOTE | 2023-06-18 21:21 | P.PN ---
Date of Service: 06/18/23 Vital Signs Temp Pulse Resp BP Pulse Ox 98.4 F 64 16 167/77 H 93 06/18/23 12:00 06/18/23 12:00 06/18/23 12:00 06/18/23 12:00 06/18/23 12:00 Microbiology Results 06/10/23 11:15 Blood - Blood Aerobic Blood Culture - Final No growth in 5 days. 06/10/23 11:15 Blood - Blood Anaerobic Blood Culture - Final No growth in 5 days. 06/10/23 11:35 Blood - Blood Aerobic Blood Culture - Final No growth in 5 days. 06/10/23 11:35 Blood - Blood Anaerobic Blood Culture - Final No growth in 5 days. 06/10/23 11:35 Nasopharnyx Influenza Type A Antigen Screen - Final 06/10/23 11:35 Nasopharnyx Influenza Type B Antigen Screen - Final Assessment/ Plan: Nephrology No dyspnea No chest pain Feeling better No acute events overnight Vitals, medications, blood work and imaging reviewed in the chart General: In no apparent distress, Oriented x3, Cooperative HEENT: Atraumatic Neck: Supple Respiratory: Expiratory wheezes Cardiovascular: Regular rate/rhythm. LE Edema 1+ Gastrointestinal: Soft and benign, Non-distended Musculoskeletal: No clubbing, No contractures Integumentary: No rashes, No cyanosis Neurological: Normal speech Still Light Right chest CVC Blood work reviewed in the chart Imagings Data: EXAM DESCRIPTION: RADChest Single View06/10/2023 11:20 am CLINICAL HISTORY: DYSPNEA COMPARISON: Chest Single View dated 03/21/2023; Chest Single View dated 03/21/2023; Chest Single View dated 02/20/2023; Chest Single View dated 02/03/2023 TECHNIQUE: Portable AP view of the chest. FINDINGS: Patchy bilateral airspace opacities more pronounced on the left, with suspected small effusion. Central interstitial prominence as well. No pneumothorax. The cardiomediastinal contours are unremarkable. IMPRESSION: Patchy bilateral airspace opacities, may reflect pulmonary edema and/or pneumonia. Conclusions/Impression: ESRD CKD V with Proteinuria -No NSAIDs -Continue Still catheter -Tunneled HD CVC placed & first HD 06-14-23 -HD TIW -HD placement DONALD LJ on HTN with CKD/ CHF -Continue Amlodipine -Continue Losartan BID Diastolic CHF, A/C -Low sodium diet -Continue Furosemide DM II with CKD -RISS prn Anemia in CKD -Retacrit PRN CKD MBD -Continue Cholecalciferol -Continue Renvela Case reviewed with Dr. Wilkerson
== END 2023-06-18 11:36 | disposition home health service (06) | DRG 673 ==
LOC: ER 10:59 → ERHOLD 14:29 → 4TH 16:33
PROVIDERS: ADMIT Internal Medicine; ATTEND Internal Medicine
PROC: 0T9B70Z Drainage of Bladder with Drainage Device, Via Natural or Artificial Opening (ICD-10-PCS; 2023-06-11)
PROC: 02HV33Z Insertion of Infusion Device into Superior Vena Cava, Percutaneous Approach (ICD-10-PCS; 2023-06-14)
PROC: 5A1D70Z Performance of Urinary Filtration, Intermittent, Less than 6 Hours Per Day (ICD-10-PCS; 2023-06-14)
PROC: 0JH63XZ Insertion of Tunneled Vascular Access Device into Chest Subcutaneous Tissue and Fascia, Percutaneous Approach (ICD-10-PCS; principal; 2023-06-14 11:30)
PROC: 30233N1 Transfusion of Nonautologous Red Blood Cells into Peripheral Vein, Percutaneous Approach (ICD-10-PCS; 2023-06-15)
DX: N17.9 Acute kidney failure, unspecified (principal); I50.33 Acute on chronic diastolic (congestive) heart failure; I13.2 Hypertensive heart and chronic kidney disease with heart failure and with stage 5 chronic kidney disease, or end stage renal disease; N18.6 End stage renal disease; E11.22 Type 2 diabetes mellitus with diabetic chronic kidney disease; D63.1 Anemia in chronic kidney disease; M54.2 Cervicalgia; I48.91 Unspecified atrial fibrillation; F19.10 Other psychoactive substance abuse, uncomplicated; J44.9 Chronic obstructive pulmonary disease, unspecified; R09.02 Hypoxemia; Z99.2 Dependence on renal dialysis; Z11.52 Encounter for screening for COVID-19; Z79.52 Long term (current) use of systemic steroids; Z79.82 Long term (current) use of aspirin; Z90.49 Acquired absence of other specified parts of digestive tract; Z87.891 Personal history of nicotine dependence; Z79.890 Hormone replacement therapy; Z79.899 Other long term (current) drug therapy
CPT/HCPCS: 36415; 71045; 71046; 76000; 80048; 80053; 80061; 80307; 81001; 82550; 82947; 83036; 83605; 83735; 83880; 84100; 84439; 84443; 84550; 85014; 85018; 85025; 85610; 85730; 86704; 86706; 86850; 86900; 86901; 86920; 87040; 87340; 87804; 87811; 90935; 93005; 93306; 97116; 97161; 97530; 99285; A4216; C1752; J0360; J0696; J1100; J1644; J1650; J1940; J2001; J2405; J2704; J2920; J2930; J3010; J7040; J7050; J7605; J7614; J7644; P9016; P9047; Q4081; Q5106